=== PATIENT | female | born 1990 | race Caucasian/White ===

== ENCOUNTER 2025-04-09 00:20 | Emergency (ER) | payer MEDICARE, SELFPAY ==
[2025-04-09 00:20] VITALS: BP 115/79; PULSE 103; RESP 18; TEMP 37; O2SAT 99; BMI 22.4
--- NOTE | 2025-04-09 00:44 | EX.ED.DYSGE1 ---
HPI History of Present Illness Chief Complaint: Flank Pain Informant: patient Narrative Narrative: 34-year-old female states she is having pain in her left flank, less on her back more in her side in her left lower quadrant, that she has been having for the past 2 weeks consistent with a kidney stone that has been known and followed, and she is here for pain control. She is in pain management, taking oxycodone twice a day which she has been doing but the pain is [id number] and she is feeling very nauseated and does not want to waste her pain management prescription by vomiting it up. She denies any fevers or chills. No dysuria or hematuria. She has been on antibiotics for several weeks, currently on Bactrim, and states that she was admitted to [facility] where her oncologist and urologist are, she was there yesterday and then discharged today because she states her urologist who had admitted her, decided to drop her as a patient. The patient states this was because she missed a renal scan that she was unaware of. She states that the urologist was preparing to remove the kidney stone because of pain reasons. 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 She has known about those issues for years. [facility] Medical History Nephrostomy present Kidney failure Kidney stone Cervical cancer Home Medications ?Medication ?Instructions ?Recorded ?Last Taken ?Type escitalopram oxalate 20 mg tablet 20 mg PO DAILY 04/09/25 Unknown History (Lexapro) lorazepam 1 mg tablet (Ativan) 1 mg PO Q8H PRN anxiety 04/09/25 Unknown History ondansetron HCl 4 mg tablet 4 mg PO Q6H PRN nausea and vomiting 04/09/25 Unknown History oxycodone 5 mg tablet 10 mg PO Q6H PRN pain 04/09/25 Unknown History sulfamethoxazole 800 1 tab PO BID 04/09/25 Unknown History mg-trimethoprim 160 mg tablet (Bactrim DS) Allergy/AdvReac Type Severity Reaction Status Date / Time haloperidol (From Haldol) Allergy Angioedema Verified 04/09/25 00:21 Penicillins (PCN) Allergy Hives Verified 04/09/25 00:21 Social History Smoking Status: Current every day smoker tobacco type: cigarettes and e-cigarettes ROS ROS ED Constitutional Constitutional ED: Denies chills or fever(s) Eyes Eyes: Denies change in vision or diplopia ENT ENT ED: Denies rhinorrhea or sore throat Cardiovascular Cardiovascular: Denies chest pain or palpitations Respiratory/Chest Respiratory/Chest: Denies cough or dyspnea Gastrointestinal Gastrointestinal: Reports abdominal pain; Denies diarrhea, nausea or vomiting Genitourinary Genitourinary ED: Reports flank pain; Denies dysuria or hematuria Musculoskeletal Musculoskeletal: Denies back pain or neck pain Integumentary Denies abscess or rash Neurologic Neurologic: Denies headache(s), paresthesias or weakness Psychiatric Psychiatric: Denies anxiety or suicidal thoughts EXAM Physical Exam Const Vital Signs: 04/09/25 00:20 04/09/25 01:20 04/09/25 02:00 Temperature 98.6 F Temperature Source Oral Pulse Rate 103 H 89 69 Respiratory Rate 18 16 16 Blood Pressure 115/79 118/71 107/77 Blood Pressure Mean 91 86 87 Pulse Ox 99 98 99 Oxygen Delivery Method Room Air Room Air Positive well nourished and well developed Constitutional Narrative: Very well-appearing in no distress, ambulatory without limitation General Appearance ED: well developed and NAD HEENT Reports moist mucous membranes normocephalic and atraumatic Eyes PERRL and EOMs intact bilaterally Neck full ROM and supple Resp normal respiratory effort and clear to auscultation bilaterally Cardio regular rate, regular rhythm and no murmurs GI non-distended GI Narrative: Tender left lower quadrant no guarding or rebound. Auscultation: normoactive bowel sounds Palpation: soft Back/Spine no CVA tenderness Back/Spine Narrative: Left nephrostomy in place, no active discharge or signs of infection or tenderness. General Back: other FROM Extremity normal to inspection General Extremety ED: Negative for edema, pulses abnormal or tenderness General Extremity: Negative for edema or pulses abnormal Neuro oriented x3, CN's II-XII intact bilaterally and no sensory deficits noted Sensorium / Orientation: awake and alert Motor Exam: strength 5/5 throughout Psych mental status grossly normal Skin no rashes or lesions noted and no wounds MDM MDM MDM Narrative Medical decision making narrative: Labs and urinalysis are normal. No indication of infection. In the meantime she was given a dose of morphine and Zofran for her symptoms. She said it did not help and that her abdomen is hurting worse although she appears well and is not tachycardic with a heart rate of 69 and a blood pressure 107/77. Given the timing of all of this I certainly do not think she needs to be admitted for any acute reason. She is here at 1-3 a.m., and although I think reasonable to refer her to urology, I do not think she needs to see them emergently right now. She is in agreement and is gracious about more pain control and referral. Lab Data Attestation: I reviewed the patient's lab results. Labs: Laboratory Results - last 24 hr 04/09/25 04/09/25 00:38 01:02 WBC 8.7 RBC 3.81 L Hgb 12.3 Hct 36.4 L MCV 95.5 MCH 32.3 H MCHC 33.8 RDW Std Deviation 51.2 H RDW Coeff of [place] 14.6 Plt Count 297 MPV 9.4 Immature Gran % (Auto) 0.300 Neut % (Auto) 54.6 Lymph % (Auto) 32.0 [place] % (Auto) 8.9 Eos % (Auto) 3.2 Baso % (Auto) 1.0 Absolute Neuts (auto) 4.7 Absolute Lymphs (auto) 2.78 Nucleated RBC % 0 Sodium 140 Potassium 3.4 Chloride 106 Carbon Dioxide 19.8 L Anion Gap 14 BUN 9 Creatinine 0.96 Estim Creat Clear Calc 72.90 Est GFR (MDRD) Non-Af 79 BUN/Creatinine Ratio 9.0 L Glucose 120 H Calcium 9.1 Urine Color Straw Urine Clarity Clear Urine pH 6.0 Ur Specific [place] 1.010 Urine Protein Negative Urine Glucose (UA) Normal Urine Ketones Negative Urine Occult Blood Negative Urine Nitrite Negative Urine Bilirubin Negative Urine Urobilinogen Normal Ur Leukocyte Esterase Negative Urine RBC 0 SEEN Urine WBC 0-5 SEEN Ur Squamous Epith Cells 0-5 SEEN Urine Bacteria 0 SEEN Urine Mucus 0 SEEN Discharge Plan Triage Chief Complaint: Flank Pain ED Provider: Jatin Garcia Dx/Rx/DC Orders Clinical Impression: Acute left flank pain, Ureteral obstruction, left, Nephrostomy status Instructions: ED Kidney Stone with Pain Prescriptions: No Action oxycodone 5 mg tablet 10 mg PO Q6H PRN (Reason: pain) lorazepam [Ativan] 1 mg tablet 1 mg PO Q8H PRN (Reason: anxiety) escitalopram oxalate [Lexapro] 20 mg tablet 20 mg PO DAILY ondansetron HCl 4 mg tablet 4 mg PO Q6H PRN (Reason: nausea and vomiting) sulfamethoxazole-trimethoprim [Bactrim DS] 800-160 mg tablet 1 tab PO BID Primary Care Provider: [facility] Referrals: Yoseph Botello MD [Med Staff - Active Staff] - Print Language: Emirati Disposition Disposition: Home, Self Care
[2025-04-09] MEDS: Morphine 4 MG/ML Syringe IV (00:57)
[2025-04-09] MEDS: Ondansetron 4 MG/2 ML Vial IV (00:57)
[2025-04-09 01:20] VITALS: BP 118/71; PULSE 89; RESP 16; O2SAT 98
[2025-04-09 01:31] LABS: Absolute Lymphocyte Count 2.78 X10^3/uL (0.83-4.51); Absolute Neutrophil Count 4.7 X10^3/uL (2.0-7.7); Basophil# 0.09 X10^3/uL; Eosinophil# 0.28 X10^3/uL; Eosinophils% 3.2 % (0-5); Hematocrit 36.4 % (37-47); Hemoglobin 12.3 g/dL (12.0-15.0); Lymphocyte # 2.78 X10^3/ul (0.83-4.51); Mean Corp Hgb Conc 33.8 g/dL (32-36); Mean Corpuscular Hgb 32.3 pg (27.0-32.0); Mean Corpuscular Volume 95.5 fL (81-99); Mean Platelet Vol. 9.4 fl (6.2-12.0); Monocyte# 0.77 X10^3/uL; Monocyte% 8.9 % (0-10); NRBC Flagged by Analyzer 0 % (0-5); Neutrophil # 4.74 X10^3/uL (2.7-7.7); Neutrophil % 54.6 % (47-70); Platelet Count 297 K/mm3 (150-450); RBC Distribution Width CV 14.6 % (11.6-14.6); RBC Distribution Width SD 51.2 fl (35.1-43.9); Red Blood Count 3.81 M/mm3 (4.2-5.4); White Blood Count 8.7 K/mm3 (4.4-11.0)
--- OUTSIDE RECORDS SUMMARY | 2025-04-09 01:31 | XMS RPT_ITS | CCD ---
Author Organization [facility] ion Partnership [facility] Care Team Providers Care Mottler Operator Name Role Phone Flip Martin Unavailable Unavailable Shira Teran Unavailable Urology Consult Unavailable Unavailable Polo Plummer Unavailable FLIP MARTIN MD Primary Care Physician ([phone] FLIP MARTIN MD Primary Care Physician ([phone] PHYSICIAN, NONE Primary Care Physician Unavailab le OTHER, PROVIDER NOT SPECIFIED Primary Care Physi pedro Unavailable FLIP MARTIN MD Primary Care Unavailable MADELINE APARICIO Attending Unavailable MARIN COTE MD Consulting Unavailable FLIP MARTIN MD Primary Care Unavailable FLIP MARTIN MD Attending Unavailable OTHER, PROVIDER NOT SPECIFIED Primary Care Un available OLE PACE MD Attending Unavailable FLIP MARTIN MD Primary Care Unavailable LEONARDO NULL Attending UnavailRITA Almonte MD Consulting Unavailable PHYSICIAN, NONE Primary Care Unavailable BRITTNI VICENTE Attending UnavailDAVID Day MD Consulting Unavailable OTHER, PROVIDER NOT SPECIFIED Primary Care Un available OLE PACE MD Attending Unavailable OTHER, PROVIDER NOT SPECIFIED Primary Care Un available OLE PACE MD Attending Unavailable FLIP MARTIN MD Primary Care Unavailable OLE PACE MD Attending Unavailable PHYSICIAN, NONE Primary Care Unavailable OLE PACE MD Attending Unavailable FLIP MARTIN MD Primary Care Unavailable FLIP MARTIN MD Attending Unavailable FLIP MARTIN MD Primary Care Unavailable FLIP MARTIN MD Attending Unavailable FLIP MARTIN MD Primary Care Unavailable OLE PACE MD Attending Unavailable PHYSICIAN, NONE Primary Care Unavailable OLE PACE MD Attending Unavailable OTHER, PROVIDER NOT SPECIFIED Primary Care Un available YUNIEL DO, NAYELI Consulting UnavailOLE Mcknight MD Attending Unavailable FERMIN CHU, LACEY Consulting Brea jj MARTIN MD, FLIP Primary Care Unavailable VARUN LORA, FLIP Attending Unavailable PHYSICIAN, NONE Primary Care Unavailable RONY OMER, BRITTNI Attending Unavailalice MARTIN MD, FLIP Primary Care Unavailable MADELINE APARICIO Attending Unavailable PHYSICIAN, NONE Primary Care Unavailable OLE PACE MD Attending Unavailable ISABELLA LORA, Ph.D, VIRAL Choe Attending Unavailalice MASON MD, Ph.D, VIRAL Choe Consulting Unavailalice MARTIN MD, FLIP Primary Care Unavailable OLE MONK MD Consulting Unavailable PHYSICIAN, NONE Primary Care Unavailable RONY OMER, BRITTNI Attending Unavailalice ROSARIO MD, DALY Consulting Unavailable FLIP MARTIN MD Attending Unavailable FLIP MARTIN MD Admitting Unavailable FLIP MARTIN MD Primary Care Unavailable JOHANNA JEAN BAPTISTE MD Consulting Unavailable OLE PACE MD Consulting Unavailable SANTINO SAWYER MD Consulting Unavailable DAVID SMITH MD Consulting Unavailable OTHER, PROVIDER NOT SPECIFIED Primary Care Un available OLE PACE MD Attending Unavailable PHYSICIAN, NONE Primary Care Unavailable OLE PACE MD Attending Unavailable VIRAL MANUEL MD Attending Unavailable HILDA HADDAD MD Consulting Unavailable OTHER, PROVIDER NOT SPECIFIED Primary Care Un available HILDA HADDAD MD Consulting Unavailable PHYSICIAN, NONE Primary Care Unavailable OLE PACE MD Attending Unavailable OTHER, PROVIDER NOT SPECIFIED Primary Care Un available JULIAN ISABEL MD Attending Unavailable OTHER, PROVIDER NOT SPECIFIED Primary Care Un available JULIAN ISABEL MD Attending Unavailable OTHER, PROVIDER NOT SPECIFIED Primary Care Un available JULIAN ISABEL MD Attending Unavailable PHYSICIAN, NONE Primary Care Unavailable HARITHA CLAY DO Attending Unavailable FLIP MARTIN MD Primary Care Unavailable FLIP MARTIN MD Attending Unavailable OTHER, PROVIDER NOT SPECIFIED Primary Care Un available OLE PACE MD Attending Unavailable OLE PACE MD Primary Care Physician GONZALEZ CARTER DO Primary Care Unavailable GONZALEZ CARTER DO Attending Unavailable GONZALEZ CARTER DO Admitting Unavailable GONZALEZ CARTER DO Primary Care Unavailable GONZALEZ CARTER DO Attending Unavailable GONZALEZ CARTER DO Admitting Unavailable KORINA AGUILAR MD Primary Care Unavailable KORINA AGUILAR MD Attending Unavailable KORINA AGUILAR MD Admitting Unavailable DIDGONZALEZ ORTIZ DO Primary Care Unavailable DIDGONZALEZ ORTIZ DO Attending Unavailable DIDGONZALEZ ORTIZ DO Admitting Unavailable RADHA, GUCCI E Primary Care Unavailable RADHA, GUCCI Phillips Attending Unavailable RADHA, GUCCI Phillips Admitting Unavailable OMLEY, BEATRICE DO Primary Care Unavailable OMLEY, BEATRICE DO Attending Unavailable OMLEY, BEATRICE DO Admitting Unavailable RADHA, GUCCI E Primary Care Unavailable RADHAGUCCI Attending Unavailable RADHAGUCCI HUDSON Admitting Unavailable ALICIA RODRIGUEZ MD Primary Care Unavailable ALICIA RODRIGUEZ MD Attending Unavailable ALICIA RODRIGUEZ MD Admitting Unavailable DIDGONZALEZ ORTIZ DO Primary Care Unavailable GONZALEZ CARTER DO Attending Unavailable GONZALEZ CARTER DO Admitting Unavailable GONZALEZ CARTER DO Primary Care Unavailable GONZALEZ CARTER DO Attending Unavailable GONZALEZ CARTER DO Admitting Unavailable GONZALEZ CARTER DO Primary Care Unavailable GONZALEZ CARTER DO Attending Unavailable GONZALEZ CARTER DO Admitting Unavailable GONZALEZ CARTER DO Primary Care Unavailable GONZALEZ CARTER DO Attending Unavailable GONZALEZ CARTER DO Admitting Unavailable RADHA, GUCCI Phillips Primary Care Unavailable RADHAGUCCI Attending Unavailable RADHAGUCCI Admitting Unavailable WINTER, OBED C Primary Care Unavailable WINTER, OBED C Attending Unavailable WINTER, OBED C Admitting Unavailable FLIP MARTIN MD Consulting Unavailable FLIP MARTIN MD Primary Care Unavailable FLIP MARTIN MD Attending Unavailable FLIP MARTIN MD Admitting Unavailable PROVIDER, UNKNOWN Consulting Unavailable AL, NEMR BADIE Primary Care Unavailable AL, NEMR BADIE Attending Unavailable AL, NEMR BADIE Admitting Unavailable RADHA, GUCCI E Primary Care Unavailable RADHA, GUCCI E Attending Unavailable RADHA, GUCCI E Admitting Unavailable DIDGONZALEZ ORTIZ DO Primary Care Unavailable GONZALEZ CARTER DO Attending Unavailable GONZALEZ CARTER DO Admitting Unavailable FEDE CAMPBELL MD Primary Care Unavailable FEDE CAMPBELL MD Attending Unavailable FEDE CAMPBELL MD Admitting Unavailable CSERNYLUCA CHRISTO DO Primary Care Unavailable CSERNYIKCHRISTO DO Attending Unavailable CSERNYCHRISTO SEGOVIA DO Admitting Unavailable RADHA, GUCCI E Primary Care Unavailable RADHA, GUCCI E Attending Unavailable RADHA, GUCCI E Admitting Unavailable ALICIA RODRIGUEZ MD Primary Care Unavailable ALICIA RODRIGUEZ MD Attending Unavailable ALICIA RODRIGUEZ MD Admitting Unavailable JENNI LORA, DR JURADO Admitting Unavailab roxann PACE MD, OLE A Primary Care Unavailable HENRY GUDINO, DR SEGAL Attending Unavailable SANTINO SAWYER MD Consulting Unavailable GONZALEZ CARMONA MD Consulting Unavailable OLE PACE MD Consulting Unavailable GONZALEZ CARMONA MD Consulting Unavailable BHUPENDRA GALVEZ DO Admitting Unavailable SANJEEV LORA, OLE A Primary Care Unavailable FRED CARBAJAL MD Attending Unavailable SANJEEV LORA, OEL A Primary Care Unavailable OLE PACE MD Attending Unavailable SANJEEV LORA, OLE A Primary Care Unavailable OLE PACE MD Attending Unavailable SANJEEV LORA, OLE A Primary Care Unavailable DELMAR MICHAEL DO Attending Unavailable GUCCI ALEXANDRE Attending Unavailable SANJEEV LORA, OLE A Primary Care Unavailable OLE PACE MD A Primary Care Unavailable TADEO LEIJA PA-C Attending Unavailcydney PACE MD, OLE A Primary Care Unavailable NASRIN ISABEL MD Attending Unavailable NAYELI BRICE DO Consulting UnavailOLE Mcknight MD A Primary Care Unavailable NASRIN ISABEL MD Attending Unavailable GARTH GOSS MD Consulting Unavailable OLE MONK MD Consulting Unavailable OLE PACE MD A Primary Care Unavailable AVILA OMER, PINA Jenkins Attending Unavail able OLE PACE MD A Primary Care Unavailable NASRIN ISABEL MD Attending Unavailable CLOTILDE RANDHAWA DO Consulting Unavailable SANJEEV LORA, OLE A Primary Care Unavailable AVILA OMER, PINA Jenkins Attending Unavail able GONZALEZ CARMONA MD Attending Unavailable OLE PACE MD A Primary Care Unavailable OLE PACE MD A Primary Care Unavailable NASRIN ISABEL MD Attending Unavailable GONZALEZ CARMONA MD Attending Unavailable OLE PACE MD A Primary Care Unavailable OLE PACE MD Primary Care Unavailable CLOTILDE RANDHAWA DO Attending Unavailable GONZALEZ CARMONA MD Attending Unavailable OLE PACE MD A Primary Care Unavailable OLE PACE MD A Primary Care Unavailable OLE PACE MD Attending Unavailable OLE PACE MD A Primary Care Unavailable OLE PACE MD Attending Unavailable OLE PACE MD A Primary Care Unavailable OLE PACE MD Attending Unavailable SANJEEV LORA, OLE A Primary Care Unavailable NASRIN ISABEL MD Attending Unavailable OLE PACE MD Attending Unavailable SANJEEV LORA, OLE A Primary Care Unavailable SANJEEV LORA, OLE A Primary Care Unavailable MARKUS LORA, DR CORREA Attending Unavailable PHUONG LORA, VON Attending Unavailalice PACE MD, OLE Jenkins Primary Care Unavailable CLOTILDE RANDHAWA DO Consulting Unavailable KERA LORA, MARIN Consulting Unavailable SANJEEV LORA, OLE Jenkins Primary Care Unavailable AVILA [employer]ENN-HAZARDOUS WASTE REMOVER, PINA Jenkins Attending Unavail able Allergies Allergy Classification Reported Allergen(s) Allergy Type Date of Onset Reaction(s) Facility Haloperidol (1 source) Haloperidol; Translations: [haloperidol] Drug Allergy Tongue swelling (finding) [facility] Penicillins (antibiotic) (1 source) Penicillin; Translations: [penicillins] Drug Allergy Weal (disorder) [facility] (10 sources) Codeine; Translations: [codeine] Drug Allergy [facility] (1 source) oxyCODONE; Translations: [oxycodone] Drug Allergy Vomitting, Nausea [facility] (20 sources) Penicillin; Translations: [penicillins] Drug Allergy Weal (disorder) [facility] (20 sources) Egan - fruit Food allergy Tongue swelling (finding), Difficulty breathing (finding) [facility] (16 sources) Haloperidol; Translations: [haloperidol] Drug Allergy Tongue swelling (finding) [facility] (1 source) Haloperidol Drug Allergy [facility] (1 source) Penicillins Drug allergy (disorder) [facility] Medications Current Medications Medication Drug Class(es) Dates Sig (Normalized) Sig (Original) acetaminophen 500 mg oral tablet (20 sources) Start: 10-12-2024 Tylenol Extra Strength 500 mg oral tablet Dose : 1,000 mg = 2 tab(s), Oral, q4h, PRN as needed for pain Start Date: 10/12/24 Status: Ordered Repeat number: 1 Start: 01-06-2024 acetaminophen Dose : 650 mg =, PRN as needed for pain, 0 Refill(s) Start Date: 01/06/24 Status: Ordered Start: 01-06-2024 acetaminophen Dose : 650 mg =, 0 Refill(s) Start Date: 01/06/24 Status: Ordered Start: 10-08-2022 Tylenol 325 mg oral capsule Dose : 650 mg =, Oral, q4h, PRN Pain, scale 1-3, 0 Refill(s) Start Date: 10/08/22 Status: Ordered Start: 08-16-2022 End: 08-30-2022 Tylenol 325 mg oral tablet D ose : 650 mg = 2 tab(s), Oral, q4hr, PRN for pain, X 7 day(s), # 50 tab(s), 1 Refill(s), 08/30/22 13:02:00 EDT, Pharmacy: [id number], 167.6, cm, 08/08/22 16:51:00 EDT, Height Start Date: 08/16/22 Stop Date: 08/30/22 Status: Ordered Start: 01-11-2021 Tylenol 325 mg oral capsule Dose : 650 mg =, Oral, q4h, PRN Pain, scale 1-3, 0 Refill(s) Start Date: 01/11/21 Status: Ordered acetaminophen 325 mg / oxyCODONE hydrochloride 5 mg oral tablet (14 sources) Opioid Agonist Start: 01-21-2023 End: 02-20-2023 take 1 tablet by mouth every six hours acetaminophen-oxyCODONE 325 mg-5 mg oral tablet Dose = 1 tab(s), Oral, q6hr, X 30 day(s), # 120 tab(s), 0 Refill(s), Pharmacy: [id number], Cervical cancer, 167.6, cm, 01/01/23 16:31:00 EST, Height, 47.7, kg, 01/01/23 16:31:00 EST, Dosing Weight Start Date: 01/21/23 Stop Date: 02/20/23 Status: Ordered Start: 12-19-2022 End: 01-18-2023 take 1 tablet by mouth every six hours acetaminophen-oxyCODONE 325 mg-5 mg oral tablet Dose = 1 tab(s), Oral, q6hr, X 30 day(s), # 120 tab(s), 0 Refill(s), Pharmacy: [id number], Cervical cancer, 167.6, cm, 11/15/22 9:52:00 EST, Height, 50, kg, 11/15/22 9:52:00 EST, Dosing Weight Start Date: 12/19/22 Stop Date: 01/18/23 Status: Ordered Start: 10-21-2022 End: 11-20-2022 take 1 tablet by mouth every six hours acetaminophen-oxyCODONE 325 mg-5 mg oral tablet Dose = 1 tab(s), Oral, q6hr, X 30 day(s), # 120 tab(s), 0 Refill(s), Pharmacy: [facility], Cervical cancer, 167.6, cm, 09/30/22 17:45:00 EST, Height, 50.4, kg, 09/30/22 17:45:00 EST, Dosing Weight Start Date: 10/21/22 Stop Date: 11/20/22 Status: Ordered Start: 09-18-2022 End: 10-18-2022 take 1 tablet by mouth every six hours acetaminophen-oxyCODONE 325 mg-5 mg oral tablet Dose = 1 tab(s), Oral, q6hr, X 30 day(s), # 120 tab(s), 0 Refill(s), Pharmacy: [facility], Cervical cancer, 167.6, cm, 08/08/22 16:51:00 EDT, Height, 52.5, kg, 08/08/22 16:51:00 EDT, Dosing Weight Start Date: 09/18/22 Stop Date: 10/18/22 Status: Ordered Start: 07-22-2022 End: 08-21-2022 take 1 tablet by mouth every six hours acetaminophen-oxyCODONE 325 mg-5 mg oral tablet Dose = 1 tab(s), Oral, q6hr, X 30 day(s), # 120 tab(s), 0 Refill(s), Pharmacy: [facility], Cervical cancer, 167.6, cm, 07/04/22 10:37:00 EDT, Height, 45.4 Start Date: 07/22/22 Stop Date: 08/21/22 Status: Ordered Start: 06-19-2022 End: 07-19-2022 take 1 tablet by mouth every six hours as needed for pain acetaminophen-oxyCODONE 325 mg-5 mg oral tablet Dose = 1 tab(s), Oral, q6hr, PRN for pain, X 30 day(s), # 120 tab(s), 0 Refill(s), Pharmacy: [id number], Cervical ca Cancer related pain, 167.6, cm, 05/23/22 11:20:00 EDT, Height, 52.3, kg, 05/23/22 11:20:00 EDT, Dosing Weight Start Date: 06/19/22 Stop Date: 07/19/22 Status: Ordered Start: 03-25-2022 End: 04-24-2022 take 1 tablet by mouth every six hours as needed for pain acetaminophen-oxyCODONE 325 mg-5 mg oral tablet Dose = 1 tab(s), Oral, q6hr, PRN for pain, X 30 day(s), # 120 tab(s), 0 Refill(s), Pharmacy: [id number], Cervical ca Cancer related pain, 167.6, cm, 02/21/22 15:19:00 EDT, Height, 46, kg, 02/21/22 15:19:00 EDT, Dosing Weight Start Date: 03/25/22 Stop Date: 04/24/22 Status: Ordered Start: 02-19-2022 End: 03-21-2022 take 1 tablet by mouth every six hours as needed for pain acetaminophen-oxyCODONE 325 mg-5 mg oral tablet Dose = 1 tab(s), Oral, q6hr, PRN for pain, X 30 day(s), # 120 tab(s), 0 Refill(s), Pharmacy: [facility], Cervical ca, 167.6, cm, 01/28/22 14:47:00 EDT, Height, 45.4, kg, 01/28/22 14:47:00 EDT, Dosing Weight Start Date: 02/19/22 Stop Date: 03/21/22 Status: Ordered Start: 12-21-2021 End: 01-20-2022 take 1 tablet by mouth every six hours as needed for pain acetaminophen-oxyCODONE 325 mg-5 mg oral tablet Dose = 1 tab(s), Oral, q6hr, PRN for pain, X 30 day(s), # 120 tab(s), 0 Refill(s), Pharmacy: [facility], Cervical ca, 167.6, cm, 12/21/21 10:38:00 EST, Height, 47.7, kg, 12/21/21 10:38:00 EST, Dosing Weight Start Date: 12/21/21 Stop Date: 01/20/22 Status: Ordered Start: 08-15-2021 End: 09-14-2021 take 1 tablet by mouth every four hours as needed for pain acetaminophen-oxyCODONE 325 mg-5 mg oral tablet Dose = 1 tab(s), Oral, q4h, PRN for pain, X 30 day(s), # 180 tab(s), 0 Refill(s), Pharmacy: [facility], Cervical cancer, 167.6, cm, 05/22/21 17:26:00 EDT, Height, 45.4, kg, 05/22/21 17:26:00 EDT, Dosing Weight Start Date: 08/15/21 Stop Date: 09/14/21 Status: Ordered take 9 tablets by mo uth every four to six hours as needed Percocet 5/325 oral tablet ; orally ever y 4-6 hours, As Needed Quantity: 0 Refills: 0 Ordered: 12-Jul-2021 Rod Cruz Status: Discontinued Generic Substitution Allowed albuterol MDI (90 mcg/inh) CFC free inhalation aerosol (7 sources) Start: 08-06-2024 take 2 puff(s) by inhalation every six hours as needed for wheezing albuterol MDI (90 mcg/inh) CFC free inhalation aerosol 2 puff(s), Inhalation, q6h, PRN as needed for wheezing, # 8.5 gram(s), 0 Refill(s) Start Date: 08/06/24 Status: Ordered Quantity: 8.5 Unit: g Repeat number: 1 Start: 08-06-2024 take 2 puff(s) by in halation every six hours as needed for wheezing albuterol MDI (90 mcg/inh) CFC free inhalation aerosol 2 puff(s), Inhalation, q6h, PRN as needed for wheezing, # 8.5 gram(s), 0 Refill(s) Start Date: 08/06/24 Status: Ordered busPIRone hydrochloride 15 mg oral tablet (1 source) Start: 05-26-2021 busPIRone 15 mg oral tablet Dose : 15 mg = 1 tab(s), Oral, BID, # 60 tab(s), 1 Refill(s), Pharmacy: [facility], 167.6, cm, 05/22/21 17:26:00 EDT, Height, kg, 05/22/21 17:26:00 EDT, Dosing Weight Start Date: 05/26/21 Status: Ordered Calcium Plus Vitamin D3 600 mg-12.5 mcg (500 intl units) oral capsule (15 sources) Start: 05-15-2023 take 1 capsule by mouth once daily at mealtime Calcium Plus Vitamin D3 600 mg-12.5 mcg (500 intl units) oral capsule Dose = 2 cap(s), Oral, qDay, with food, # 120 EA, 0 Refill(s), Pharmacy: [facility], 167.6, cm, 05/15/23 15:33:00 EDT, Height Start Date: 05/15/23 Status: Ordered ciprofloxacin 500 mg oral tablet (3 sources) Quinolone Antimicrobial Start: 05-07-2023 End: 05-17-2023 ciprofloxacin 500 mg oral tablet Dose : 500 mg = 1 tab(s), Oral, q12h, X 10 day(s), # 20 tab(s), 0 Refill(s), 05/17/23 6:33:00 EDT, Pharmacy: [facility], 167, cm, 04/28/23 13:10:00 EDT, Height, 63.9 Start Date: 05/07/23 Stop Date: 05/17/23 Status: Ordered Start: 01-06-2023 End: 01-10-2023 ciprofloxacin 500 mg oral ta blet Dose : 500 mg = 1 tab(s), Oral, q12h, X 4 day(s), # 9 tab(s), 0 Refill(s), 01/10/23 14:45:00 EST, Pharmacy: [facility], 167.6, cm, 01/01/23 16:31:00 EST, Height, 47.7 Start Date: 01/06/23 Stop Date: 01/10/23 Status: Ordered cyclobenzaprine hydrochloride 5 mg oral tablet (1 source) Muscle Relaxant Start: 08-16-2022 End: 08-26-2022 cyclobenzaprine 5 mg oral tablet Dose : 5 mg = 1 tab(s), Oral, TID, PRN Muscle spasm, X 10 day(s), # 30 tab(s), 0 Refill(s), 08/26/22 13:05:00 EDT, Pharmacy: [facility], 167.6, cm, 08/08/22 16:51:00 EDT, Height Start Date: 08/16/22 Stop Date: 08/26/22 Status: Ordered DAPTOmycin 500 mg injection (2 sources) Lipopeptide Antibacterial Start: 05-07-2023 End: 05-17-2023 inject 1 dose intravenously every twenty-four hours DAPTOmycin 500 mg intravenous injection Dose : 383.4 mg =, Intravenous, q24h, X 10 day(s), # 10 EA, 0 Refill(s), 05/17/23 6:32:00 EDT, Pharmacy: [facility], 167, cm, 04/28/23 13:10:00 EDT, Height, 63.9 Start Date: 05/07/23 Stop Date: 05/17/23 Status: Ordered docusate sodium 100 mg oral capsule (4 sources) Start: 10-08-2022 Colace 100 mg oral capsule Dose : 100 mg = 1 cap(s), Oral, BID, PRN as needed for constipation, # 60 cap(s), 2 Refill(s), Pharmacy: [facility], 167.6, cm, 09/30/22 17:45:00 EST, Height, kg, 09/30/22 17:45:00 EST, Dosing Weight Start Date: 10/08/22 Status: Ordered dronabinol 2.5 mg oral capsule (1 source) Cannabinoid Start: 10-08-2022 End: 10-29-2022 Marinol 2.5 mg oral capsule Dose : 2.5 mg = 1 cap(s), Oral, BID, X 21 day(s), # 42 cap(s), 0 Refill(s), 10/29/22 14:33:00 EST, Pharmacy: [facility], Cervical cancer Decreased appetite, 167.6, cm, 09/30/22 17:45:00 EST, Height, 50.4 Start Date: 10/08/22 Stop Date: 10/29/22 Status: Ordered escitalopram 20 mg oral tablet (15 sources) Serotonin Reuptake Inhibitor Start: 2024 Lexapro 20 mg oral tablet Dose : 20 mg = 1 tab(s), Oral, qDay, # 30 tab(s), 5 Refill(s), Pharmacy: [email or web address] 167.6, cm, 12/22/24 8:11:00 EST, Height, kg, 12/22/24 8:11:00 EST, Dosing Weight Start Date: 12/28/24 Status: Ordered Quantity: 30.0 Unit: tab(s) Repeat number: 6 Start: 06-17-2024 Lexapro 20 mg oral tablet Dose : 20 mg = 1 tab(s), Oral, qDay, # 30 tab(s), 5 Refill(s), Pharmacy: [facility] 167.6, cm, 06/09/24 6:47:00 EDT, Height, kg, 06/09/24 6:47:00 EDT, Dosing Weight Start Date: 06/17/24 Status: Ordered Start: 03-16-2024 Lexapro 20 mg oral tablet Dose : 20 mg = 1 tab(s), Oral, qDay, # 30 tab(s), 2 Refill(s), Pharmacy: [email or web address] 167.6, cm, 03/04/24 9:28:00 EDT, Height, kg, 03/04/24 9:28:00 EDT, Dosing Weight Start Date: 03/16/24 Status: Ordered Start: 01-06-2024 Lexapro 10 mg oral tablet Dose : 10 mg = 1 tab(s), Oral, qDay, # 30 tab(s), 1 Refill(s), Pharmacy: [facility], 167.6, cm, 01/06/24 10:18:00 EST, Height, kg, 01/06/24 10:18:00 EST, Dosing Weight Start Date: 01/06/24 Status: Ordered Start: 12-08-2023 Lexapro 10 mg oral tablet Dose : 10 mg = 1 tab(s), Oral, qDay, # 30 tab(s), 1 Refill(s), Pharmacy: [facility], 167.6, cm, 12/08/23 14:57:00 EST, Height, kg, 12/08/23 14:57:00 EST, Dosing Weight Start Date: 12/08/23 Status: Ordered Start: 09-12-2023 escitalopram 1 0 mg oral tablet Dose : 10 mg = 1 tab(s), Oral, qDay, # 30 tab(s), 1 Refill(s), Pharmacy: [facility], [facility] 167.6, cm, 09/03/23 13:59:00 EDT, Height, kg, 09/03/23 13:59:00 EDT, Dosing Weight Start Date: 09/12/23 Status: Ordered estrogens, conjugated ([facility]) 0.625 mg / medroxyPROGESTERone acetate 2.5 mg oral tablet (2 sources) Progestin, Estrogen Start: 02-21-2022 take 1 tablet by mouth once daily Prempro 0.625 mg-2.5 mg oral tablet Dose = 1 tab(s), Oral, qDay, # 90 tab(s), 2 Refill(s), Pharmacy: [facility], 167.6, cm, 02/21/22 15:19:00 EDT, Height Start Date: 02/21/22 Status: Ordered HYDROmorphone hydrochloride 2 mg oral tablet (2 sources) Opioid Agonist Start: 08-16-2022 End: 08-21-2022 Dilaudid 2 mg oral tablet Dose : 2 mg = 1 tab(s), Oral, q4h, PRN as needed for pain, X 5 day(s), # 28 tab(s), 0 Refill(s), 08/21/22 13:06:00 EDT, Pharmacy: [facility], Cancer related pain History of radiation therapy, 167.6, cm, 08/08/22 16:51:00 EDT, Height, 52.5 Start Date: 08/16/22 Stop Date: 08/21/22 Status: Ordered Start: 04-19-2022 End: 04-26-2022 Dilaudid 2 mg oral tablet Do se : 1 mg = 0.5 tab(s), Oral, q4h, PRN as needed for pain, # 28 tab(s), 0 Refill(s), Pharmacy: [facility], Cervical cancer Cancer related pain, 167.6, cm, 04/14/22 22:09:00 EDT, Height, 45.4 Start Date: 04/19/22 Stop Date: 04/26/22 Status: Ordered ibuprofen 200 mg oral tablet (15 sources) Nonsteroidal Anti-inflammatory Drug Start: 12-03-2023 Motrin IB 200 mg oral tablet Dose : 400 mg = 2 tab(s), Oral, q4h, PRN as needed for pain, 0 Refill(s) Start Date: 12/03/23 Status: Ordered Repeat number: 1 lidocaine 0.05 mg/mg medicated patch (2 sources) Antiarrhythmic, Amide Local Anesthetic Start: 08-16-2022 lidocaine 5% topical patch Apply 1 patch(es), Topical, qDay, remove patches after 12 hours, # 30 patch(es), 0 Refill(s), Pharmacy: [facility], 167.6, cm, 08/08/22 16:51:00 EDT, Height, 52.5 Start Date: 08/16/22 Status: Ordered LORazepam 1 mg oral tablet (20 sources) Benzodiazepine Start: 2024 Ativan 1 mg or al tablet Dose : 1 mg = 1 tab(s), Oral, TID, PRN as needed for anxiety, # 90 tab(s), 2 Refill(s), Pharmacy: [facility] Palliative care patient THO (generalized anxiety disorder), 167.6, cm, 12/22/24 8:11:00 EST, Height, 53.6, kg, 12/22/24 8:11:00 EST, Dosing Weight Start Date: 12/28/24 Status: Ordered Quantity: 90.0 Unit: tab(s) Repeat number: 3 Indications: Encounter for palliative care; Generalized anxiety disorder; Start: 07-15-2024 End: 09-13-2024 Ativan 1 mg oral tablet Dose : 1 mg = 1 tab(s), Oral, BID, PRN as needed for anxiety, # 60 tab(s), 1 Refill(s), Pharmacy: [facility] Palliative care patient THO (generalized anxiety disorder), 167.6, cm, 06/21/24 11:41:00 EDT, Height, 62.2, kg, 06/21/24 11:41:00 EDT, Dosing Weight Start Date: 07/15/24 Stop Date: 09/13/24 Status: Ordered Start: 05-14-2024 End: 07-13-2024 Ativan 1 mg oral tablet Dose : 1 mg = 1 tab(s), Oral, BID, PRN as needed for anxiety, # 60 tab(s), 1 Refill(s), Pharmacy: [facility] Palliative care patient THO (generalized anxiety disorder), 167.6, cm, 04/28/24 11:26:00 EDT, Height, 62.5, kg, 04/28/24 11:26:00 EDT, Dosing Weight Start Date: 05/14/24 Stop Date: 07/13/24 Status: Ordered Start: 01-06-2024 End: 04-18-2024 Ativan 1 mg oral tablet Dose : 1 mg = 1 tab(s), Oral, BID, PRN as needed for anxiety, # 60 tab(s), 0 Refill(s), Pharmacy: [id number], Palliative care patient THO (generalized anxiety disorder), 167.6, cm, 03/04/24 9:28:00 EDT, Height, 60, kg, 03/04/24 9:28:00 EDT, Dosing Weight Start Date: 03/19/24 Stop Date: 04/18/24 Status: Ordered Start: 11-19-2023 LORazepam 1 mg oral tablet Dose : 1 mg = 1 tab(s), Oral, BID, # 60 tab(s), 0 Refill(s), Pharmacy: [facility] Cancer related pain History of cervical cancer, 167.6, cm, 11/19/23 9:33:00 EST, Height, 61.3, kg, 11/19/23 9:33:00 EST, Dosing Weight Start Date: 11/19/23 Status: Ordered Start: 10-20-2023 LORazepam 1 mg oral tablet Dose : 1 mg = 1 tab(s), Oral, BID, # 60 tab(s), 0 Refill(s), Pharmacy: [facility] Cancer related pain History of cervical cancer, 167.6, cm, 09/03/23 13:59:00 EDT, Height, 63.6, kg, 09/03/23 13:59:00 EDT, Dosing Weight Start Date: 10/20/23 Status: Ordered Start: 08-21-2023 LORazepam 1 mg oral tablet Dose : 1 mg = 1 tab(s), Oral, BID, # 60 tab(s), 1 Refill(s), [facility] Cancer related pain History of cervical cancer, 167.6, cm, 08/21/23 15:13:00 EDT, Height, 64.2, kg, 08/21/23 15:13:00 EDT, Dosing Weight Start Date: 08/21/23 Status: Ordered Start: 07-30-2023 take 1 tablet by saloni th every eight hours LORazepam 1 mg oral tablet TAKE ONE TABLET BY MOUTH EVERY 8 HOURS Start Date: 07/30/23 Status: Ordered Start: 04-28-2023 End: 07-25-2023 Ativan 1 mg oral tablet Dose : 1 mg = 1 tab(s), Oral, q8h, X 9 day(s), # 27 tab(s), 0 Refill(s), 07/25/23 1:35:00 PM EDT, [facility] Anxiety Cervical ca, 167.6, cm, 07/09/23 7:02:00 EDT, Height, 62.8, kg, 07/09/23 7:02:00 EDT, Dosing Weight Start Date: 07/16/23 Stop Date: 07/25/23 Status: Ordered Start: 09-24-2021 End: 03-14-2023 Ativan 1 mg oral tablet Dose : 1 mg = 1 tab(s), Oral, TID, PRN PRN as needed for anxiety, X 30 day(s), # 90 tab(s), 0 Refill(s), 03/14/23 9:57:00 EDT, Pharmacy: [id number], Cervical cancer Anxiety, 167.6, cm, 01/01/23 16:31:00 EST, Height, 47.7, kg, 01/01/23 16:... Start Date: 02/12/23 Stop Date: 03/14/23 Status: Ordered Start: 06-22-2021 End: 09-20-2021 Ativan 1 mg oral tablet Dose : 1 mg = 1 tab(s), Oral, TID, X 30 day(s), # 90 tab(s), 2 Refill(s), 09/20/21 15:11:00 EST, Pharmacy: [id number], Cervical cancer, 167.6, cm, 05/22/21 17:26:00 EDT, Height, 45.4, kg, 05/22/21 17:26:00 EDT, Dosing Weight Start Date: 06/22/21 Stop Date: 09/20/21 Status: Ordered megestrol 40 mg/mL oral suspension (1 source) Start: 05-17-2021 take 1 dose by mouth once daily megestrol 40 mg/mL oral suspension Dose : 800 mg = 20 mL, Oral, Daily, # 600 mL, 2 Refill(s), Pharmacy: [facility], 167.6, cm, 05/17/21 14:03:00 EDT, Height, kg, 05/17/21 14:03:00 EDT, Dosing Weight Start Date: 05/17/21 Status: Ordered metoclopramide 5 mg oral tablet (3 sources) Dopamine-2 Receptor Antagonist Start: 01-06-2024 metoclopramide 5 mg oral tablet 0 Refill(s) Start Date: 01/06/24 Status: Ordered Start: 11-19-2023 End: 12-19-2023 metoclopramide 5 mg oral tab let Dose : 5 mg = 1 tab(s), Oral, achs, PRN nausea, X 15 day(s), # 60 tab(s), 1 Refill(s), 12/19/23 10:06:00 AM EST, Pharmacy: [facility] 167.6, cm, 11/19/23 9:33:00 EST, Height, kg, 11/19/23 9:33:00 EST, Dosing Weight Start Date: 11/19/23 Stop Date: 12/19/23 Status: Ordered mirtazapine 15 mg oral table t (10 sources) Start: 07-04-2023 mirtazapine 15 mg oral tablet Dose : 15 mg = 1 tab(s), Oral, qDay, # 30 tab(s), 0 Refill(s), [facility] 167.6, cm, 06/24/23 13:14:00 EDT, Height, kg, 06/24/23 13:14:00 EDT, Dosing Weight Start Date: 07/04/23 Status: Ordered Start: 06-03-2023 mirtazapine 15 mg oral tablet Dose : 15 mg = 1 tab(s), Oral, qDay, # 30 tab(s), 0 Refill(s), Pharmacy: [facility], 167.6, cm, 05/15/23 15:33:00 EDT, Height, kg, 05/15/23 15:33:00 EDT, Dosing Weight Start Date: 06/03/23 Status: Ordered Start: 04-28-2023 mirtazapine 15 mg oral tablet Dose : 15 mg = 1 tab(s), Oral, qDay Start Date: 04/28/23 Status: Ordered Start: 01-06-2023 mirtazapine 15 mg oral tablet Dose : 15 mg = 1 tab(s), Oral, qDay, # 30 tab(s), 3 Refill(s), Pharmacy: [facility], 167.6, cm, 01/01/23 16:31:00 EST, Height Start Date: 01/06/23 Status: Ordered morphine sulfate 30 mg extended release oral tablet (6 sources) Opioid Agonist Start: 06-16-2023 End: 07-16-2023 take 1 tablet by mouth every twelve hours, then take 1 tablet by mouth every twelve hours morphine 30 mg/8 to 12 hr oral tablet, extended release Dose : 30 mg = 1 tab(s), Oral, q12h, # 60 tab(s), 0 Refill(s), [facility] Cervical cancer, 167.6, cm, 05/15/23 15:33:00 EDT, Height, 65.9, kg, 05/15/23 15:33:00 EDT, Dosing Weight Start Date: 06/16/23 Stop Date: 07/16/23 Status: Ordered Start: 05-07-2023 End: 05-21-2023 take 1 tablet by mouth every twelve hours, then take 1 tablet by mouth every twelve hours morphine 30 mg/8 to 12 hr oral tablet, extended release Dose : 30 mg = 1 tab(s), Oral, q12h, # 28 tab(s), 0 Refill(s), Pharmacy: [facility], Cervical cancer, 167, cm, 04/28/23 13:10:00 EDT, Height, 63.9 Start Date: 05/07/23 Stop Date: 05/21/23 Status: Ordered Start: 03-04-2023 take 1 tablet by saloni th every hour, then take 1 tablet by mouth every twelve hours MS Contin 30 mg/8-12 hrs oral tablet, extended release Dose : 30 mg = 1 tab(s), Oral, q12h, # 60 tab(s), 0 Refill(s), Pharmacy: [facility], Cervical cancer Cancer related pain, 167.6, cm, 02/23/23 21:09:00 EDT, Height, 55.7 Start Date: 03/04/23 Status: Ordered Start: 10-08-2022 End: 10-29-2022 take 1 tablet by mouth every hour, then take 1 tablet by mouth every twelve hours MS Contin 30 mg/8-12 hrs oral tablet, extended release Dose : 30 mg = 1 tab(s), Oral, q12h, # 42 tab(s), 0 Refill(s), Pharmacy: [facility], Cervical cancer, 167.6, cm, 09/30/22 17:45:00 EST, Height, 50.4 Start Date: 10/08/22 Stop Date: 10/29/22 Status: Ordered naproxen 250 mg oral tablet (4 sources) Nonsteroidal Anti-inflammatory Drug Start: 08-16-2022 naproxen 250 mg oral tablet Dose : 250 mg = 1 tab(s), Oral, BID, # 60 tab(s), 0 Refill(s), Pharmacy: [facility], 167.6, cm, 08/08/22 16:51:00 EDT, Height Start Date: 08/16/22 Status: Ordered nitrofurantoin, macrocrystals 25 mg / nitrofurantoin, monohydrate 75 mg oral capsule (1 source) Nitrofuran Antibacterial Start: 08-16-2022 End: 08-19-2022 Macrobid 100 mg oral capsule Dose : 100 mg = 1 cap(s), Oral, BID, Take with food, X 3 day(s), # 6 cap(s), 0 Refill(s), 08/19/22 13:08:00 EDT, Pharmacy: [facility], 167.6, cm, 08/08/22 16:51:00 EDT, Height, 52.5 Start Date: 08/16/22 Stop Date: 08/19/22 Status: Ordered Normal saline (14 sources) Start: 11-21-2022 Normal Saline Flush 0.9% injectable solution Dose : 0.09 gram(s) = 10 mL, IR Drain, Daily, # 300 mL, 12 Refill(s), Pharmacy: [facility], 167.6, cm, 11/15/22 9:52:00 EST, Height, kg, 11/15/22 9:52:00 EST, Dosing Weight Start Date: 11/21/22 Status: Ordered Start: 10-09-2022 Normal Saline Flush 0.9% injectable solution Dose : 0.09 gram(s) = 10 mL, IR Drain, Daily, # 300 mL, 12 Refill(s), [facility], 167.6, cm, 09/30/22 17:45:00 EST, Height, kg, 09/30/22 17:45:00 EST, Dosing Weight Start Date: 10/09/22 Status: Ordered Start: 10-08-2022 Normal Saline Flush 0.9% injectable solution Dose : 0.09 gram(s) = 10 mL, IR Drain, Daily, # 300 mL, 12 Refill(s), Pharmacy: Pharmacy, 167.6, cm, 09/30/22 17:45:00 EST, Height, kg, 09/30/22 17:45:00 EST, Dosing Weight Start Date: 10/08/22 Status: Ordered Start: 04-12-2021 Normal Saline Flush 0.9% injectable solution Dose : 0.09 gram(s) = 10 mL, IR Drain, Daily, # 300 mL, 12 Refill(s), Pharmacy: [facility], 167.6, cm, 04/12/21 10:36:00 EDT, Height, kg, 04/12/21 10:36:00 EDT, Dosing Weight Start Date: 04/12/21 Status: Ordered OLANZapine 5 mg oral tablet (3 sources) Atypical Antipsychotic Start: 06-21-2022 OLANZap ine 5 mg oral tablet Dose : 5 mg = 1 tab(s), Oral, qHS, # 90 tab(s), 3 Refill(s), Pharmacy: [facility], 167.6, cm, 05/23/22 11:20:00 EDT, Height, kg, 05/23/22 11:20:00 EDT, Dosing Weight Start Date: 06/21/22 Status: Ordered Start: 04-19-2022 OLANZapine 5 m g oral tablet Dose : 5 mg = 1 tab(s), Oral, qHS, # 30 tab(s), 1 Refill(s), Pharmacy: [facility], 167.6, cm, 04/14/22 22:09:00 EDT, Height Start Date: 04/19/22 Status: Ordered ondansetron 4 mg oral tablet (20 sources) 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 Start: 12-10-2024 ondansetron 4 mg ora l tablet Dose : 4 mg = 1 tab(s), Oral, BID, TAKE ONE TABLET BY MOUTH EVERY 8 HOURS NEEDED FOR NAUSEA AND VOMITING, # 60 tab(s), 2 Refill(s), Pharmacy: [facility] 167.6, cm, 02/16/25 7:20:00 EDT, Height, kg, 02/16/25 7:20:00 EDT, Dosing Weight Start Date: 02/17/25 Status: Ordered Quantity: 60.0 Unit: tab(s) Repeat number: 3 Start: 05-24-2024 ondansetron 4 mg oral tablet Dose : 4 mg = 1 tab(s), Oral, BID, TAKE ONE TABLET BY MOUTH EVERY 8 HOURS NEEDED FOR NAUSEA AND VOMITING, # 60 tab(s), 2 Refill(s), Pharmacy: [facility] 167.6, cm, 05/24/24 11:29:00 EDT, Height, kg, 05/24/24 11:29:00 EDT, Dosing Weight Start Date: 05/24/24 Status: Ordered Start: 03-16-2024 End: 04-30-2024 Zofran 4 mg oral tablet Dose : 4 mg = 1 tab(s), Oral, q8h, PRN Nausea/Vomiting, X 15 day(s), # 45 tab(s), 2 Refill(s), 04/30/24 4:58:00 PM EDT, Pharmacy: [facility] 167.6, cm, 03/04/24 9:28:00 EDT, Height, kg, 03/04/24 9:28:00 EDT, Dosing Weight Start Date: 03/16/24 Stop Date: 04/30/24 Status: Ordered Start: 03-03-2024 Zofran 4 mg or al tablet Dose : 4 mg = 1 tab(s), Oral, q8h, PRN Nausea/Vomiting, # 15 tab(s), 0 Refill(s) Start Date: 03/03/24 Status: Ordered Start: 11-24-2023 End: 02-07-2024 ondansetron 4 mg oral tablet Dose : 4 mg = 1 tab(s), Oral, q6h, PRN Nausea/Vomiting, X 15 day(s), # 60 tab(s), 4 Refill(s), 02/07/24 9:38:00 AM EDT, Pharmacy: [facility] 167.6, cm, 11/19/23 9:33:00 EST, Height, kg, 11/19/23 9:33:00 EST, Dosing Weight Start Date: 11/24/23 Stop Date: 02/07/24 Status: Ordered Start: 04-28-2023 End: 10-30-2023 ondansetron 4 mg oral tablet Dose : 4 mg = 1 tab(s), Oral, q6h, PRN Nausea/Vomiting, # 60 tab(s), 2 Refill(s), Pharmacy: [facility] 167.6, cm, 09/03/23 13:59:00 EDT, Height, kg, 09/03/23 13:59:00 EDT, Dosing Weight Start Date: 09/15/23 Stop Date: 10/30/23 Status: Ordered Start: 01-23-2023 End: 02-22-2023 ondansetron 4 mg oral tablet Dose : 4 mg = 1 tab(s), Oral, q6h, PRN Nausea/Vomiting, # 120 tab(s), 0 Refill(s), Pharmacy: [facility], 167.6, cm, 01/01/23 16:31:00 EST, Height Start Date: 01/23/23 Stop Date: 02/22/23 Status: Ordered Start: 10-08-2022 End: 12-07-2022 Zofran 4 mg oral tablet Dose : 4 mg = 1 tab(s), Oral, q6h, PRN Nausea/Vomiting, # 60 tab(s), 1 Refill(s), Pharmacy: [facility], Cervical cancer, 167.6, cm, 09/30/22 17:45:00 EST, Height, kg, 09/30/22 17:45:00 EST, Dosing Weight Start Date: 11/06/22 Status: Ordered Start: 07-19-2022 End: 09-17-2022 Zofran 4 mg oral tablet Dose : 4 mg = 1 tab(s), Oral, q6h, PRN Nausea/Vomiting, Take 20-30 minutes prior to taking pain medication, # 120 tab(s), 1 Refill(s), Pharmacy: [facility], 167.6, cm, 07/04/22 10:37:00 EDT, Height, kg, 07/04/22 10:37:00 EDT, Dosing Weight Start Date: 07/19/22 Stop Date: 09/17/22 Status: Ordered Start: 03-14-2022 End: 06-18-2022 Zofran 4 mg oral tablet Dose : 4 mg = 1 tab(s), Oral, q6h, PRN Nausea/Vomiting, Take 20-30 minutes prior to taking pain medication, # 120 tab(s), 1 Refill(s), Pharmacy: [facility], 167.6, cm, 04/14/22 22:09:00 EDT, Height, kg, 04/14/22 22:09:00 EDT, Dosing Weight Start Date: 04/19/22 Stop Date: 06/18/22 Status: Ordered Start: 11-05-2021 End: 06-17-2022 take 1 dose by mouth every six hours ondansetron 4 mg oral disintegrating strip Dose : 4 mg = 1 film, Oral, q6h, X 30 day(s), # 30 film, 4 Refill(s), 06/17/22 12:00:00 EDT, Pharmacy: [facility], 167.6, cm, 01/16/22 19:29:00 EDT, Height, kg, 01/16/22 19:29:00 EDT, Dosing Weight Start Date: 01/18/22 Stop Date: 06/17/22 Status: Ordered Start: 08-07-2021 End: 10-06-2021 take 1 dose by mouth every six hours ondansetron 4 mg oral disintegrating strip Dose : 4 mg = 1 film, Oral, q6h, X 30 day(s), # 30 film, 1 Refill(s), 10/06/21 11:19:00 EST, Pharmacy: [facility], 167.6, cm, 05/22/21 17:26:00 EDT, Height, kg, 05/22/21 17:26:00 EDT, Dosing Weight Start Date: 08/07/21 Stop Date: 10/06/21 Status: Ordered take 9 tablets by [facility] every four hours as needed Zofran 4 mg oral tablet ; orally every 4 hours, As Needed Quantity: 0 Refills: 0 Ordered: 12-Jul-2021 Rod Cruz Status: Discontinued Generic Substitution Allowed oxyCODONE hydrochloride 5 mg oral tablet (20 sources) Opioid Agonist Start: 03-10-2025 oxyCODONE 5 mg oral tablet ( IMMEDIATE release ) Dose : 10 mg = 2 tab(s), Oral, q6h, PRN for pain, may dispense 03/11/25, # 240 tab(s), 0 Refill(s), Pharmacy: [facility] Cervical ca Cancer related pain, 165.1, cm, 03/08/25 14:18:00 EDT, Height, 53, kg, 03/09/25 12:17:00 EDT, Dosing Weight Start Date: 03/10/25 Status: Ordered Quantity: 240.0 Unit: tab(s) Repeat number: 1 Indications: Neoplasm related pain (acute) (chronic); Malignant neoplasm of cervix uteri, unspecified; Start: 02-14-2025 End: 03-01-2025 oxyCODONE 5 mg oral tablet ( IMMEDIATE release ) Dose : 10 mg = 2 tab(s), Oral, q6h, PRN for pain, # 240 tab(s), 0 Refill(s), Pharmacy: [facility] Cervical ca Cancer related pain, 167.6, cm, 12/22/24 8:11:00 EST, Height, 52.4, kg, 02/14/25 11:39:00 EDT, Dosing Weight Start Date: 02/14/25 Stop Date: 03/01/25 Status: Ordered Quantity: 240.0 Unit: tab(s) Repeat number: 1 Indications: Neoplasm related pain (acute) (chronic); Malignant neoplasm of cervix uteri, unspecified; Start: 07-19-2024 oxyCODONE 5 mg oral tablet ( IMMEDIATE release ) Dose : 10 mg = 2 tab(s), Oral, q6h, PRN for pain, dose increased. Please dispense today, # 240 tab(s), 0 Refill(s), Pharmacy: [facility] Cervical ca Cancer related pain, 167.6, cm, 07/19/24 11:26:00 EDT, Height, 60.9, kg, 07/19/24 11:26:00 EDT, Dosing Weight Start Date: 07/19/24 Status: Ordered Start: 05-24-2024 oxyCODONE 5 mg oral tablet ( IMMEDIATE release ) Dose : 5 mg = 1 tab(s), Oral, q6hr, PRN for pain, # 120 tab(s), 0 Refill(s), Pharmacy: [facility] Cancer related pain History of cervical cancer, 167.6, cm, 05/24/24 11:29:00 EDT, Height, 61.5, kg, 05/24/24 11:29:00 EDT, Dosing Weight Start Date: 05/24/24 Status: Ordered Start: 04-01-2024 oxyCODONE 5 mg oral tablet ( IMMEDIATE release ) Dose : 10 mg = 2 tab(s), Oral, q8h, PRN for pain, # 150 tab(s), 0 Refill(s), Pharmacy: [facility] Cancer related pain History of cervical cancer, 167.6, cm, 03/04/24 9:28:00 EDT, Height, 60, kg, 03/04/24 9:28:00 EDT, Dosing Weight Start Date: 04/01/24 Status: Ordered Start: 02-04-2024 oxyCODONE 5 mg oral tablet ( IMMEDIATE release ) Dose : 10 mg = 2 tab(s), Oral, q8h, PRN for pain, # 150 tab(s), 0 Refill(s), Pharmacy: [facility] Cancer related pain History of cervical cancer, 167.6, cm, 03/04/24 9:28:00 EDT, Height, 60, kg, 03/04/24 9:28:00 EDT, Dosing Weight Start Date: 03/04/24 Status: Ordered Start: 01-06-2024 oxyCODONE 10 m g oral tablet Dose : 10 mg = 1 tab(s), Oral, q8h, PRN for pain, # 90 tab(s), 0 Refill(s), Pharmacy: [facility], Cancer related pain History of cervical cancer, 167.6, cm, 01/06/24 10:18:00 EST, Height, 58.3, kg, 01/06/24 10:18:00 EST, Dosing Weight Start Date: 01/06/24 Status: Ordered Start: 12-08-2023 oxyCODONE 10 m g oral tablet Dose : 10 mg = 1 tab(s), Oral, q6h, PRN for pain, # 120 tab(s), 0 Refill(s), Pharmacy: [facility], Cancer related pain History of cervical cancer, 167.6, cm, 12/08/23 14:57:00 EST, Height, 58.2, kg, 12/08/23 14:57:00 EST, Dosing Weight Start Date: 12/08/23 Status: Ordered Start: 11-20-2023 OxyContin 10 m g oral tablet, extended release Dose : 10 mg = 1 tab(s), Oral, q12h, # 60 tab(s), 0 Refill(s), Pharmacy: [facility] Cervical ca, 167.6, cm, 11/19/23 9:33:00 EST, Height, 61.3, kg, 11/19/23 9:33:00 EST, Dosing Weight Start Date: 11/20/23 Status: Ordered Start: 11-05-2023 oxyCODONE 15 m g oral tablet ( IMMEDIATE release ) Dose : 15 mg = 1 tab(s), Oral, q6hr, PRN as needed for pain, # 120 tab(s), 0 Refill(s), Pharmacy: [facility] Cervical cancer, 167.6, cm, 10/22/23 10:21:00 EST, Height, 61.4, kg, 10/22/23 10:21:00 EST, Dosing Weight Start Date: 11/05/23 Status: Ordered Start: 10-16-2023 OxyContin 15 m g oral tablet, extended release Dose : 15 mg = 1 tab(s), Oral, BID, # 60 tab(s), 0 Refill(s), Pharmacy: [facility] Cancer related pain Cervical ca, 167.6, cm, 09/03/23 13:59:00 EDT, Height, 63.6, kg, 09/03/23 13:59:00 EDT, Dosing Weight Start Date: 10/16/23 Status: Ordered Start: 09-12-2023 oxyCODONE 15 m g oral tablet ( IMMEDIATE release ) Dose : 15 mg = 1 tab(s), Oral, q6hr, may fill on 10/05/23, # 120 tab(s), 0 Refill(s), Pharmacy: [facility] Cervical cancer, 167.6, cm, 09/03/23 13:59:00 EDT, Height, 63.6, kg, 09/03/23 13:59:00 EDT, Dosing Weight Start Date: 09/12/23 Status: Ordered Start: 09-12-2023 OxyContin 15 m g oral tablet, extended release Dose : 15 mg = 1 tab(s), Oral, BID, # 60 tab(s), 0 Refill(s), Pharmacy: [facility] Cancer related pain Cervical ca, 167.6, cm, 09/03/23 13:59:00 EDT, Height, 63.6, kg, 09/03/23 13:59:00 EDT, Dosing Weight Start Date: 09/12/23 Status: Ordered Start: 08-21-2023 oxyCODONE 10 m g oral tablet ( IMMEDIATE release ) Dose : 10 mg = 1 tab(s), Oral, q6h, PRN as needed for pain, # 120 tab(s), 0 Refill(s), Pharmacy: [facility] Cancer related pain History of cervical cancer, 167.6, cm, 08/21/23 15:13:00 EDT, Height, 64.2, kg, 08/21/23 15:13:00 EDT, Dosing Weight Start Date: 08/21/23 Status: Ordered Start: 08-06-2023 OxyContin 15 m g oral tablet, extended release Dose : 15 mg = 1 tab(s), Oral, BID, # 60 tab(s), 0 Refill(s), Pharmacy: [facility] Cancer related pain Cervical ca, 167.6, cm, 07/30/23 11:18:00 EDT, Height, 62.6, kg, 07/30/23 11:18:00 EDT, Dosing Weight Start Date: 08/06/23 Status: Ordered Start: 07-24-2023 End: 08-03-2023 oxyCODONE 5 mg oral tablet ( IMMEDIATE release ) Dose : 15 mg = 3 tab(s), Oral, q4hr, PRN as needed for pain, # 180 tab(s), 0 Refill(s), Pharmacy: [facility] Cancer related pain Cervical ca, 167.6, cm, 07/24/23 10:14:00 EDT, Height, 67.8, kg, 07/24/23 10:14:00 EDT, Dosing Weight Start Date: 07/24/23 Stop Date: 08/03/23 Status: Ordered Start: 07-15-2023 OxyContin 15 m g oral tablet, extended release Dose : 15 mg = 1 tab(s), Oral, BID, # 60 tab(s), 0 Refill(s), Pharmacy: [facility] Cancer related pain Cervical ca, 167.6, cm, 07/09/23 7:02:00 EDT, Height, 62.8, kg, 07/09/23 7:02:00 EDT, Dosing Weight Start Date: 07/15/23 Status: Ordered Start: 07-15-2023 End: 07-22-2023 oxyCODONE 5 mg oral tablet ( IMMEDIATE release ) Dose : 15 mg = 3 tab(s), Oral, q4hr, PRN as needed for pain, # 126 tab(s), 0 Refill(s), Pharmacy: [facility] Cancer related pain Cervical ca, 167.6, cm, 07/09/23 7:02:00 EDT, Height, 62.8, kg, 07/09/23 7:02:00 EDT, Dosing Weight Start Date: 07/15/23 Stop Date: 07/22/23 Status: Ordered Start: 06-26-2023 End: 07-26-2023 oxyCODONE 10 mg oral tablet ( IMMEDIATE release ) Dose : 10 mg = 1 tab(s), Oral, q6h, PRN for pain, X 30 day(s), # 120 tab(s), 0 Refill(s), 07/26/23 11:49:00 AM EDT, Pharmacy: [facility] Cervical cancer, 167.6, cm, 06/24/23 13:14:00 EDT, Height, 64, kg, 06/24/23 13:14:00 EDT, Dosing Weight Start Date: 06/26/23 Stop Date: 07/26/23 Status: Ordered Start: 05-07-2023 End: 05-17-2023 oxyCODONE 10 mg oral tablet ( IMMEDIATE release ) Dose : 10 mg = 1 tab(s), Oral, q4h, PRN Pain, X 5 day(s), # 30 tab(s), 0 Refill(s), 05/17/23 10:46:00 EDT, Pharmacy: [id number], Cervical cancer, 167, cm, 04/28/23 13:10:00 EDT, Height, 63.9, kg, 04/28/23 13:10:00 EDT, Dosing Weight Start Date: 05/12/23 Stop Date: 05/17/23 Status: Ordered Start: 02-17-2023 End: 04-03-2023 oxyCODONE 10 mg oral tablet ( IMMEDIATE release ) Dose : 10 mg = 1 tab(s), Oral, q4h, PRN PRN as needed for pain, X 30 day(s), # 180 tab(s), 0 Refill(s), 04/03/23 8:11:00 EDT, Pharmacy: [facility], Cervical cancer Cancer related pain, 167.6, cm, 02/23/23 21:09:00 EDT, Height, 55.7 Start Date: 03/04/23 Stop Date: 04/03/23 Status: Ordered Start: 10-08-2022 End: 10-29-2022 oxyCODONE 10 mg oral tablet ( IMMEDIATE release ) Dose : 10 mg = 1 tab(s), Oral, q4h, PRN abdominal discomfort, X 21 day(s), # 126 tab(s), 0 Refill(s), 10/29/22 14:33:00 EST, Pharmacy: [facility], Cervical cancer, 167.6, cm, 09/30/22 17:45:00 EST, Height, 50.4 Start Date: 10/08/22 Stop Date: 10/29/22 Status: Ordered pantoprazole 40 mg delayed release oral tablet (2 sources) Proton Pump Inhibitor Start: 11-19-2023 pantoprazole 40 mg oral enteric coated tablet Dose : 40 mg = 1 tab(s), Oral, qDayAC, # 30 tab(s), 1 Refill(s), Pharmacy: [facility], [facility] 167.6, cm, 11/19/23 9:33:00 EST, Height, kg, 11/19/23 9:33:00 EST, Dosing Weight Start Date: 11/19/23 Status: Ordered potassium chloride 20 meq oral tablet (1 source) Start: 04-28-2024 Potassium Chloride (Ibe-Mouo-Spm M20) 20 mEq oral tablet, extended release Dose : 20 mEq = 1 tab(s), TAKE 1 TABLET BY MOUTH TWICE DAILY Start Date: 04/28/24 Status: Ordered prochlorperazine 10 mg oral tablet (1 source) Phenothiazine Start: 04-19-2022 End: 06-18-2022 prochlorperazine 10 mg oral tablet Dose : 10 mg = 1 tab(s), Oral, TID, PRN as needed for nausea/vomiting, X 30 day(s), # 90 tab(s), 1 Refill(s), 06/18/22 15:02:00 EDT, Pharmacy: [id number], 167.6, cm, 04/14/22 22:09:00 EDT, Height Start Date: 04/19/22 Stop Date: 06/18/22 Status: Ordered sertraline 25 mg oral tablet (2 sources) Serotonin Reuptake Inhibitor Start: 08-21-2023 Zoloft 25 mg oral tablet Dose : 25 mg = 1 tab(s), Oral, qDay, # 30 tab(s), 1 Refill(s), Pharmacy: [facility], [facility] 167.6, cm, 08/21/23 15:13:00 EDT, Height, kg, 08/21/23 15:13:00 EDT, Dosing Weight Start Date: 08/21/23 Status: Ordered sulfamethoxazole 800 mg / trimethoprim 160 mg oral tablet (7 sources) Dihydrofolate Reductase Inhibitor Antibacterial, Sulfonamide Antimicrobial Start: 03-08-2025 End: 04-07-2025 take 1 tablet by mouth twice daily Bactrim DS 800 mg-160 mg oral tablet Dose = 1 tab(s), Oral, BID, X 30 day(s), # 60 tab(s), 0 Refill(s), Pharmacy: [facility] 165.1, cm, 03/08/25 14:18:00 EDT, Height, 55.2, kg, 03/08/25 14:15:00 EDT, Dosing Weight Start Date: 03/08/25 Stop Date: 04/07/25 Status: Ordered Quantity: 60.0 Unit: tab(s) Repeat number: 1 Indications: Unspecified abdominal pain; Calculus of kidney; Unspecified hydronephrosis; Start: 02-14-2023 End: 02-19-2023 take 1 tablet by mouth every twelve hours Bactrim DS 800 mg-160 mg oral tablet 190.8 mg, Oral, q12h, Dosage expressed as trimethoprim, X 5 day(s), # 10 tab(s), 0 Refill(s), Pharmacy: [facility], 167.6, cm, 01/01/23 16:31:00 EST, Height, 47.7 Start Date: 02/14/23 Stop Date: 02/19/23 Status: Ordered Start: 12-21-2021 End: 12-31-2021 take 1 tablet by mouth twice daily sulfamethoxazole-trimethoprim 800 mg-160 mg oral tablet Dose = 1 tab(s), Oral, BID, # 20 tab(s), 0 Refill(s), 47.6 Start Date: 12/21/21 Stop Date: 12/31/21 Status: Ordered Start: 07-14-2021 take 1 tablet by saloni th every twelve hours sulfamethoxazole-trimethoprim 800 mg-160 mg oral tablet ; 1 tab(s) orally every 12 hours Quantity: 20 Refills: 0 Ordered: 14-Jul-2021 [facility] Shira Start: 14-Jul-2021 Generic Substitution Allowed tamsulosin hydrochloride 0.4 mg oral capsule (2 sources) alpha-Adrenergic Linsey Start: 07-19-2024 tamsu losin 0.4 mg oral capsule Dose : 0.4 mg = 1 cap(s), Oral, BID, # 30 cap(s), 2 Refill(s), Pharmacy: [facility] 167.6, cm, 07/19/24 11:26:00 EDT, Height, kg, 07/19/24 11:26:00 EDT, Dosing Weight Start Date: 07/19/24 Status: Ordered Completed/Discontinued Medications Medication Drug Class(es) Dates Sig (Normalized) Sig (Original) gabapentin 300 mg oral capsule (13 sources) Anti-epileptic Agent Start: 06-09-2023 End: 07-09-2023 take 1 capsule by mouth once daily at bedtime gabapentin 300 mg oral capsule 1 cap(s), Oral, qHS, # 30 cap(s), 0 Refill(s), Pharmacy: [facility], Cervical cancer, 167.6, cm, 05/15/23 15:33:00 EDT, Height, 65.9, kg, 05/15/23 15:33:00 EDT, Dosing Weight Start Date: 06/09/23 Stop Date: 07/09/23 Status: Ordered Start: 04-28-2023 End: 06-07-2023 take 1 capsule by mouth once daily at bedtime gabapentin 300 mg oral capsule 1 cap(s), Oral, qHS, # 30 cap(s), 30, 0 Refill(s), Pharmacy: [facility], 167, cm, 04/28/23 13:10:00 EDT, Height, 63.9, kg, 04/28/23 13:10:00 EDT, Dosing Weight Start Date: 05/08/23 Stop Date: 06/07/23 Status: Ordered Start: 10-08-2022 End: 03-08-2023 gabapentin 300 mg oral capsu le Dose : 300 mg = 1 cap(s), Oral, qHS, 0 Refill(s), 50 Start Date: 02/17/23 Status: Ordered meropenem 1000 mg injection (3 sources) Penem Antibacterial Start: 10-08-2022 meropenem 1000 mg intravenous injection Dose : 1,000 mg =, IV Piggyback, q8h, 0 Refill(s), 50.4 Start Date: 10/08/22 Status: Ordered Start: 04-19-2022 Merrem 1000 mg intravenous injection Dose : 1,000 mg =, IV Piggyback, q8h, 0 Refill(s), 45.4 Start Date: 04/19/22 Status: Ordered naloxone hydrochloride 40 mg/ml nasal spray (4 sources) Opioid Antagonist Start: 02-04-2024 naloxone 4 m g/0.1 mL nasal spray Dose : 4 mg = 1 spray(s), Intranasal, AsDirected, PRN see pharmacy notes, may repeat every 2 to 3 minutes until patient responds, # 2 EA, 0 Refill(s) Start Date: 02/04/24 Status: Ordered promethazine hydrochloride 12.5 mg rectal suppository (2 sources) Phenothiazine Start: 08-16-2022 promethazine 1 2.5 mg rectal suppository Dose : 12.5 mg = 1 supp, Rectal, q6h, PRN for nausea/vomiting, # 40 supp, 0 Refill(s), Pharmacy: [facility], 167.6, cm, 08/08/22 16:51:00 EDT, Height Start Date: 08/16/22 Status: Ordered Problems Active Problems Problem Classification Problem Date Documented Da te Episodic/Chronic Abdominal pain (20 sources) Left flank pain; Translations: [Acute abdomen] Onset: 01-01-2023 04-16-2020 Episodic Acute and unspecified renal failure (1 source) Unspecified kidney failure; Translations: [Unspecified kidney failure] Onset: 05-25-2024 Chronic Acute and unspecified renal failure (1 source) Acute renal failure syndrome; Translations: [Acute kidney failure, unspecified] Onset: 01-01-2023 Episodic Adjustment disorders (1 source) Adjustment disorder with depressed mood; Translations: [Adjustment disorder with depressed mood] Onset: 02-24-2023 Chronic Anxiety disorders (20 sources) Anxiety; Translations: [Anxiety disorder] Onset: 08-09-2022 05-23-2021 Chronic Asthma (20 sources) Asthma; Translations: [Unspecified asthma, uncomplicated] Onset: 09-30-2022 04-16-2020 Chronic Bacterial infection; unspecified site (3 sources) Drug resistance; Translations: [Extended spectrum beta lactamase (ESBL) resistance] Episodic Calculus of urinary tract (5 sources) Kidney stone; Translations: [Calculus of ureter] Onset: 04-04-2025 03-08-2025 Episodic Cancer of cervix (20 sources) Malignant tumor of cervix; Translations: [Malignant neoplasm of cervix uteri, unspecified] Onset: 08-08-2022 09-18-2020 Chronic Cardiac dysrhythmias (1 source) Sinus bradycardia; Translations: [Bradycardia, unspecified] Onset: 04-17-2022 Episodic Chronic kidney disease (2 sources) Chronic kidney disease stage 3; Translations: [Chronic kidney disease, stage 3 unspecified] Onset: 05-17-2024 Chronic Complication of device; implant or graft (3 sources) Disorders of urogenital prostheses or implants; Translations: [Unspecified complication of genitourinary prosthetic device, implant and graft, initial encounter] Episodic Crushing injury or internal injury (20 sources) Injury of kidney 04-16-2020 Episodic E Codes: Fall (1 source) Unspecified fall, initial encounter; Translations: [Unspecified fall, initial encounter] Episodic Essential hypertension (1 source) Essential hypertension; Translations: [Essential (primary) hypertension] Onset: 07-09-2023 Chronic Gastritis and duodenitis (2 sources) Duodenitis; Translations: [Duodenitis without bleeding] Onset: 04-15-2022 Episodic Genitourinary symptoms and ill-defined conditions (10 sources) Urostomy present; Translations: [Other artificial openings of urinary tract status] Onset: 04-18-2022 Chronic Headache; including migraine (1 source) Migraine, unspecified, not intractable, without status migrainosus; Translations: [Migraine, unspecified, not intractable, without status migrainosus] Onset: 05-25-2024 Chronic Menopausal disorders (20 sources) Premature menopause; Translations: [Asymptomatic premature menopause] Onset: 08-11-2022 Chronic Mood disorders (1 source) Mood disorders; Translations: [Depression, unspecified] Onset: 04-25-2024 Nutritional deficiencies (20 sources) Moderate protein energy malnutrition; Translations: [Moderate protein-calorie malnutrition (weight for age 60-74% of standard)] 04-16-2020 Chronic Other aftercare (1 source) Seen by palliative care medicine service; Translations: [Encounter for palliative care] Episodic Other aftercare (1 source) Encounter for palliative care; Translations: [Encounter for palliative care] Onset: 04-04-2025 Episodic Other circulatory disease (3 sources) H/O: artificial organ/tissue; Translations: [Presence of other vascular implants and grafts] Onset: 08-09-2022 Chronic Other connective tissue disease (1 source) Pain in lower limb; Translations: [Pain in leg, unspecified] Onset: 03-03-2023 Episodic Other diseases of kidney and ureters (19 sources) Hydronephrosis 08-28-2023 Episodic Other diseases of kidney and ureters (3 sources) Unspecified hydronephrosis; Translations: [Unspecified hydronephrosis] Onset: 07-24-2023 Episodic Other gastrointestinal disorders (1 source) Constipation, unspecified; Translations: [Constipation, unspecified] Onset: 08-13-2022 Episodic Other gastrointestinal disorders (1 source) Slow transit constipation; Translations: [Slow transit constipation] Onset: 02-25-2023 Episodic Other nervous system disorders (20 sources) Pain due to neoplastic disease; Translations: [Neoplasm related pain (acute) (chronic)] Onset: 02-23-2023 Chronic Other nervous system disorders (2 sources) Neoplasm related pain (acute) (chronic); Translations: [Neoplasm related pain (acute) (chronic)] Onset: 12-08-2023 Chronic Other nutritional; endocrine; and metabolic disorders (5 sources) Loss of appetite; Translations: [Anorexia] Onset: 04-18-2022 Episodic Other nutritional; endocrine; and metabolic disorders (20 sources) Decrease in appetite 04-18-2022 Episodic Other upper respiratory infections (1 source) Acute pharyngitis; Translations: [Acute pharyngitis, unspecified] Onset: 03-03-2023 Episodic Residual codes; unclassified (1 source) Presence of other specified functional implants; Translations: [Presence of other specified functional implants] Onset: 05-17-2024 Chronic Residual codes; unclassified (20 sources) Device in situ 05-15-2020 Episodic Residual codes; unclassified (8 sources) Tobacco user; Translations: [Tobacco use] Onset: 04-15-2022 Episodic Residual codes; unclassified (20 sources) Stoma finding 04-18-2022 Episodic Residual codes; unclassified (1 source) H/O: radiation exposure; Translations: [Personal history of irradiation] Onset: 08-09-2022 Episodic Residual codes; unclassified (2 sources) H/O: chemotherapy; Translations: [Personal history of antineoplastic chemotherapy] Onset: 08-09-2022 Episodic Residual codes; unclassified (1 source) Procedure carried out on subject; Translations: [Encounter for prophylactic measures, unspecified] Onset: 08-09-2022 Episodic Residual codes; unclassified (1 source) Pain; Translations: [Pain, unspecified] Episodic Spondylosis; intervertebral disc disorders; other back problems (1 source) Disorder of sacrum; Translations: [Sacrococcygeal disorders, not elsewhere classified] Onset: 04-28-2023 Episodic Substance-related disorders (2 sources) Nicotine dependence, unspecified, uncomplicated; Translations: [Nicotine dependence, other tobacco product, uncomplicated] Onset: 05-25-2024 Chronic Unclassified (2 sources) ABNORMAL LABS 07-11-2021 Comment on above: ABNORMAL LABS Unclassified (1 source) FUV 07-13-2021 Comment on above: FUV Unclassified (20 sources) History of antineoplastic chemotherapy 09-18-2020 Unclassified (20 sources) Patient encounter status 05-23-2021 Unclassified (4 sources) History of SARS-CoV-2 08-08-2022 Unclassified (1 source) Patient's other noncompliance with medication regimen for other reason; Translations: [Patient's other noncompliance with medication regimen for other reason] Onset: 04-25-2024 Urinary tract infections (20 sources) Urinary tract infectious disease; Translations: [Urinary tract infection, site not specified] Onset: 04-15-2022 07-11-2021 Episodic Past or Other Problems Problem Classification Problem Date Documented Da te Episodic/Chronic Allergic reactions (2 sources) Allergy status to penicillin; Translations: [Allergy status to other drugs, medicaments and biological substances status] Onset: 05-25-2024 Episodic Cancer of cervix (20 sources) History of malignant neoplasm of cervix; Translations: [Personal history of malignant neoplasm of cervix uteri] Onset: 12-08-2023 Episodic Complications of surgical procedures or medical care (2 sources) Other complication of incontinent external stoma of urinary tract; Translations: [Other complication of incontinent external stoma of urinary tract] Onset: 04-22-2024 Episodic Fluid and electrolyte disorders (20 sources) Dehydration; Translations: [Hypokalemia] Onset: 04-25-2024 04-16-2020 Episodic Gastrointestinal hemorrhage (3 sources) Hematemesis; Translations: [Hematemesis] Onset: 05-25-2024 Episodic Genitourinary symptoms and ill-defined conditions (20 sources) Urinary tract obstruction; Translations: [Retention of urine] Onset: 09-30-2022 04-16-2020 Episodic Nausea and vomiting (20 sources) Nausea and vomiting; Translations: [Nausea with vomiting, unspecified] Onset: 04-15-2022 04-16-2020 Episodic Other aftercare (1 source) retirement (current) use of opiate analgesic; Translations: [manager intermediate (current) use of opiate analgesic] Onset: 05-25-2024 Episodic Other aftercare (1 source) Other manager intermediate (current) drug therapy; Translations: [Other assisted (current) drug therapy] Onset: 04-25-2024 Episodic Residual codes; unclassified (2 sources) Pain, unspecified; Translations: [Pain, unspecified] Onset: 07-30-2023 Episodic Residual codes; unclassified (3 sources) Procedure and treatment not carried out due to patient leaving prior to being seen by health care provider; Translations: [Procedure and treatment not carried out due to patient leaving prior to being seen by health care provider] Onset: 06-24-2024 Episodic Substance-related disorders (1 source) Cannabis use, unspecified, uncomplicated; Translations: [Cannabis use, unspecified, uncomplicated] Onset: 05-25-2024 Episodic Results Test Name Value Interpretation Reference Range Facility .Auto Diffon 04-07-2025 Basophil, Absolute 0.1 10 3/mcL Normal 0.0-0.3 [facility] Comment on above: Performed By: #### G FR, LAC, ADIFF, CBC, ANEU, MG, BMP ####[address] [address] Basophils/100 WBC (Bld) 1.1 % Normal 0.0-2.5 [facility] Comment on above: Performed By: #### G FR, LAC, ADIFF, CBC, ANEU, MG, BMP ####[address] [address] Eosinophil, Absolute 0.2 10 3/mcL Normal 0.0-0.7 [facility] Comment on above: Performed By: #### G FR, LAC, ADIFF, CBC, ANEU, MG, BMP ####[address] [address] Eosinophils/100 WBC (Bld) 3.8 % Normal 0.0-6.0 [facility] Comment on above: Performed By: #### G FR, LAC, ADIFF, CBC, ANEU, MG, BMP ####[address] [address] Lymphocyte, Absolute 2.1 10 3/mcL Normal 0.9-4.3 [facility] Comment on above: Performed By: #### G FR, LAC, ADIFF, CBC, ANEU, MG, BMP ####[address] [address] Lymphocytes/100 WBC (Bld) 32.4 % Normal 20.0-40.0 [facility] Comment on above: Performed By: #### G FR, LAC, ADIFF, CBC, ANEU, MG, BMP ####[address] [address] Monocyte, Absolute 0.6 10 3/mcL Normal 0.1-1.4 [facility] Comment on above: Performed By: #### G FR, LAC, ADIFF, CBC, ANEU, MG, BMP ####[place] [id number] [place] [address] Monocytes/100 WBC (Bld) 8.9 % Normal 2.0-13.0 [facility] Comment on above: Performed By: #### G FR, LAC, ADIFF, CBC, ANEU, MG, BMP ####[address] [address] Neutrophils/100 WBC (Bld) 53.8 % Normal 50.0-75.0 [facility] Comment on above: Performed By: #### G FR, LAC, ADIFF, CBC, ANEU, MG, BMP ####[place] [id number] .GFRon 04-07-2025 Estimated Glomerular Filtration Rate 87 ml/min/1.73sqm Normal [facility] Comment on above: Result Comment: Stages of Chronic Kidney Disease (CKD) Stage Description eGFR(ml/min/1.73 sq.m.) CKD 1 Normal kidney function or >=90 normal kindney function with possible kidney damage (ex. Proteinuria) CKD 2 Kidney damage with mild loss 60-89 of kidney function CKD 3a Mild to moderate loss of kidney 45-59 function CKD 3b Moderate to severe loss of 30-44 of kindey function CKD 4 Severe loss of kidney function 15-29 CKD 5 Kidney failure <15 Note: (go live 2024) the eGFR calculation was updated to the 2020 CKD-EPI creatinine equation without a race factor to calculate the eGFR results. Performed By: #### G FR, LAC, ADIFF, CBC, ANEU, MG, BMP ####[place] [address] .NEUABSon 04-07-2025 Neutrophil, Absolute 3.5 10 3/mcL Normal 2.3-8.1 [facility] Comment on above: Performed By: #### G FR, LAC, ADIFF, CBC, ANEU, MG, BMP ####[place] [address] BMPon 04-07-2025 BUN/Creatinine Ratio 10.2 ratio Normal 10.0-22.0 [facility] Comment on above: Performed By: #### G FR, LAC, ADIFF, CBC, ANEU, MG, BMP ####[address] [address] Calcium [Mass/Vol] 9.4 mg/dL Normal 8.7-10.4 [facility] Comment on above: Performed By: #### G FR, LAC, ADIFF, CBC, ANEU, MG, BMP ####[address] [address] Chloride [Moles/Vol] 110 mmol/L Normal 98-110 [facility] Comment on above: Performed By: #### G FR, LAC, ADIFF, CBC, ANEU, MG, BMP ####[address] [address] CO2 [Moles/Vol] 27 mmol/L Normal 22-32 [facility] Comment on above: Performed By: #### G FR, LAC, ADIFF, CBC, ANEU, MG, BMP ####[address] [address] Creatinine [Mass/Vol] 0.88 mg/dL Normal 0.50-1.20 [facility] Comment on above: Result Comment: Test ing performed on Connected analyzer using enzymatic creatinine methodology. Performed By: #### G FR, LAC, ADIFF, CBC, ANEU, MG, BMP ####[place] [address] Electrolyte Balance 6.0 mEq/L Normal 4.0-15.0 [facility] Comment on above: Performed By: #### G FR, LAC, ADIFF, CBC, ANEU, MG, BMP ####[place] [id number] Glucose [Mass/Vol] 101 mg/dL Normal 70-110 [facility] Comment on above: Performed By: #### G FR, LAC, ADIFF, CBC, ANEU, MG, BMP ####[place] [address] Potassium [Moles/Vol] 3.6 mmol/L Normal 3.5-5.0 [facility] Comment on above: Performed By: #### G FR, LAC, ADIFF, CBC, ANEU, MG, BMP ####[place] [address] Sodium [Moles/Vol] 143 mmol/L Normal 136-145 [facility] Comment on above: Performed By: #### G FR, LAC, ADIFF, CBC, ANEU, MG, BMP ####[place] [address] Urea nitrogen [Mass/Vol] 9.0 mg/dL Normal 8.0-22.0 [facility] Comment on above: Performed By: #### G FR, LAC, ADIFF, CBC, ANEU, MG, BMP ####[place] [address] CBCon 04-07-2025 Erythrocyte distribution width (RBC) [Ratio] 15.2 % Normal 11.5-15.5 [facility] Comment on above: Performed By: #### G FR, LAC, ADIFF, CBC, ANEU, MG, BMP ####[place] [address] Hematocrit (Bld) [Volume fraction] 38.2 % Normal 34.0-46.0 [facility] Comment on above: Performed By: #### G FR, LAC, ADIFF, CBC, ANEU, MG, BMP ####[place] [address] Hgb 13.2 G/dL Normal 12.0-16.0 [facility] Comment on above: Performed By: #### G FR, LAC, ADIFF, CBC, ANEU, MG, BMP ####[place] [address] MCH (RBC) [Entitic mass] 33.2 pg High 27.0-33.0 [facility] Comment on above: Performed By: #### G FR, LAC, ADIFF, CBC, ANEU, MG, BMP ####[place] [address] MCHC 34.6 G/dL Normal 32.0-36.0 [facility] Comment on above: Performed By: #### G FR, LAC, ADIFF, CBC, ANEU, MG, BMP ####[place] [address] MCV (RBC) [Entitic vol] 95.8 fL Normal 80.0-99.0 [facility] Comment on above: Performed By: #### G FR, LAC, ADIFF, CBC, ANEU, MG, BMP ####[place] [address] Platelet 335 10 3/mcL Normal 150-450 [facility] Comment on above: Performed By: #### G FR, LAC, ADIFF, CBC, ANEU, MG, BMP ####[place] [address] Platelet mean volume (Bld) [Entitic vol] 7.4 fL Normal 6.6-10.5 [facility] Comment on above: Performed By: #### G FR, LAC, ADIFF, CBC, ANEU, MG, BMP ####[place] [address] RBC 3.99 10 6/mcL Low 4.10-5.30 [facility] Comment on above: Performed By: #### G FR, LAC, ADIFF, CBC, ANEU, MG, BMP ####[place] [address] WBC 6.4 10 3/mcL Normal 4.5-10.8 [facility] Comment on above: Performed By: #### G FR, LAC, ADIFF, CBC, ANEU, MG, BMP ####[place] [address] LACon 04-07-2025 Lactic Acid Lvl 0.5 mmol/L Normal 0.5-2.2 [facility] Comment on above: Performed By: #### G FR, LAC, ADIFF, CBC, ANEU, MG, BMP ####[place] [address] MGon 04-07-2025 Magnesium [Mass/Vol] 2.1 mg/dL Normal 1.6-2.4 [facility] Comment on above: Performed By: #### G FR, LAC, ADIFF, CBC, ANEU, MG, BMP ####[address] [address] .Auto Diffon 04-06-2025 Basophil, Absolute 0.1 10 3/mcL Normal 0.0-0.3 [facility] Comment on above: Performed By: #### A DIFF, ANEU, CBC, GFR, BMP, W ####[address] [address] Basophils/100 WBC (Bld) 1.3 % Normal 0.0-2.5 [facility] Comment on above: Performed By: #### A DIFF, ANEU, CBC, GFR, BMP, W ####[address] [address] Eosinophil, Absolute 0.1 10 3/mcL Normal 0.0-0.7 [facility] Comment on above: Performed By: #### A DIFF, ANEU, CBC, GFR, BMP, YOUNG ####[address] [address] Eosinophils/100 WBC (Bld) 1.5 % Normal 0.0-6.0 [facility] Comment on above: Performed By: #### A DIFF, ANEU, CBC, GFR, BMP, W ####[address] [address] Lymphocyte, Absolute 2.0 10 3/mcL Normal 0.9-4.3 [facility] Comment on above: Performed By: #### A DIFF, ANEU, CBC, GFR, BMP, YOUNG ####[address] [address] Lymphocytes/100 WBC (Bld) 20.5 % Normal 20.0-40.0 [facility] Comment on above: Performed By: #### A DIFF, ANEU, CBC, GFR, BMP, W ####[address] [address] Monocyte, Absolute 0.8 10 3/mcL Normal 0.1-1.4 [facility] Comment on above: Performed By: #### A DIFF, ANEU, CBC, GFR, BMP, MDW ####[address] [address] Monocytes/100 WBC (Bld) 7.9 % Normal 2.0-13.0 [facility] Comment on above: Performed By: #### A DIFF, ANEU, CBC, GFR, BMP, MDW ####[address] [address] Neutrophils/100 WBC (Bld) 68.8 % Normal 50.0-75.0 [facility] Comment on above: Performed By: #### A DIFF, ANEU, CBC, GFR, BMP, MDW ####[address] [address] .GFRon 04-06-2025 Estimated Glomerular Filtration Rate 80 ml/min/1.73sqm Normal [facility] Comment on above: Result Comment: Stages of Chronic Kidney Disease (CKD) Stage Description eGFR(ml/min/1.73 sq.m.) CKD 1 Normal kidney function or >=90 normal kindney function with possible kidney damage (ex. Proteinuria) CKD 2 Kidney damage with mild loss 60-89 of kidney function CKD 3a Mild to moderate loss of kidney 45-59 function CKD 3b Moderate to severe loss of 30-44 of kindey function CKD 4 Severe loss of kidney function 15-29 CKD 5 Kidney failure <15 Note: (go live 2024) the eGFR calculation was updated to the 2020 CKD-EPI creatinine equation without a race factor to calculate the eGFR results. Performed By: #### A DIFF, ANEU, CBC, GFR, BMP, MDW ####[address] [address] .MDWon 04-06-2025 Monocyte Distribution Width 21.04 High 0.00-20.00 [facility] Comment on above: Result Comment: For adults in ED, MDW>20.0 may be associated with a higher risk of sepsis during the first 12hrs of hospital admission Performed By: #### A DIFF, ANEU, CBC, GFR, BMP, MDW ####[address] [address] .NEUABSon 04-06-2025 Neutrophil, Absolute 6.8 10 3/mcL Normal 2.3-8.1 [facility] Comment on above: Performed By: #### A DIFF, ANEU, CBC, GFR, ZENOBIA, YOUNG ####[address] [address] BMPon 04-06-2025 BUN/Creatinine Ratio 10.5 ratio Normal 10.0-22.0 [facility] Comment on above: Performed By: #### A DIFF, ANEU, CBC, GFR, YOUNG FREGOSO ####[place] [address] Calcium [Mass/Vol] 9.6 mg/dL Normal 8.7-10.4 [facility] Comment on above: Performed By: #### A DIFF, ANEU, CBC, GFR, BMPYOUNG ####[place] [address] Chloride [Moles/Vol] 108 mmol/L Normal 98-110 [facility] Comment on above: Performed By: #### A DIFF, ANEU, CBC, GFR, YOUNG FREGOSO ####[place] [address] CO2 [Moles/Vol] 28 mmol/L Normal 22-32 [facility] Comment on above: Performed By: #### A DIFF, ANEU, CBC, GFR, YOUNG FREGOSO ####[place] [address] Creatinine [Mass/Vol] 0.95 mg/dL Normal 0.50-1.20 [facility] Comment on above: Result Comment: Test ing performed on Connected analyzer using enzymatic creatinine methodology. Performed By: #### A DIFF, ANEU, CBC, GFR, YOUNG FREGOSO ####[place] [address] Electrolyte Balance 4.0 mEq/L Normal 4.0-15.0 [facility] Comment on above: Performed By: #### A DIFF, ANEU, CBC, GFR, BMPYOUNG ####[place] [address] Glucose [Mass/Vol] 84 mg/dL Normal 70-110 [facility] Comment on above: Performed By: #### A DIFF, ANEU, CBC, GFR, BMP, YOUNG ####[place] [address] Potassium [Moles/Vol] 4.4 mmol/L Normal 3.5-5.0 [facility] Comment on above: Performed By: #### A DIFF, ANEU, CBC, GFR, BMP, YOUNG ####[place] [address] Sodium [Moles/Vol] 140 mmol/L Normal 136-145 [facility] Comment on above: Performed By: #### A DIFF, ANEU, CBC, GFR, BMP, YOUNG ####[place] [address] Urea nitrogen [Mass/Vol] 10.0 mg/dL Normal 8.0-22.0 [facility] Comment on above: Performed By: #### A DIFF, ANEU, CBC, GFR, BMP, YOUNG ####[place] [address] CBCon 04-06-2025 Erythrocyte distribution width (RBC) [Ratio] 15.2 % Normal 11.5-15.5 [facility] Comment on above: Performed By: #### A DIFF, ANEU, CBC, GFR, BMPYOUNG ####[place] [address] Hematocrit (Bld) [Volume fraction] 40.7 % Normal 34.0-46.0 [facility] Comment on above: Performed By: #### A DIFF, ANEU, CBC, GFR, BMP, YOUNG ####[place] [address] Hgb 13.7 G/dL Normal 12.0-16.0 [facility] Comment on above: Performed By: #### A DIFF, ANEU, CBC, GFR, BMPYOUNG ####[place] [address] MCH (RBC) [Entitic mass] 32.5 pg Normal 27.0-33.0 [facility] Comment on above: Performed By: #### A DIFF, ANEU, CBC, GFR, BMPYOUNG ####[place] [address] MCHC 33.8 G/dL Normal 32.0-36.0 [facility] Comment on above: Performed By: #### A DIFF, ANEU, CBC, GFR, BMP, YOUNG ####[place] [address] MCV (RBC) [Entitic vol] 96.3 fL Normal 80.0-99.0 [facility] Comment on above: Performed By: #### A DIFF, ANEU, CBC, GFR, BMP, YOUNG ####[place] [address] Platelet 329 10 3/mcL Normal 150-450 [facility] Comment on above: Performed By: #### A DIFF, ANEU, CBC, GFR, BMPYOUNG ####[place] [address] Platelet mean volume (Bld) [Entitic vol] 7.5 fL Normal 6.6-10.5 [facility] Comment on above: Performed By: #### A DIFF, ANEU, CBC, GFR, YOUNG FREGOSO ####[place] [address] RBC 4.22 10 6/mcL Normal 4.10-5.30 [facility] Comment on above: Performed By: #### A DIFF, ANEU, CBC, GFR, BMP, YOUNG ####[place] [address] WBC 9.9 10 3/mcL Normal 4.5-10.8 [facility] Comment on above: Performed By: #### A DIFF, ANEU, CBC, GFR, BMP, YOUNG ####[place] [address] UAon 04-06-2025 Color (U) Yellow Normal [facility] Comment on above: Performed By: #### U A ####[place] [address] Glucose (U) [Mass/Vol] Negative Normal Negative [facility] Comment on above: Performed By: #### U A ####[address], [place] [address] Ketones Ql (U) Negative Normal Neg-Trace [facility] Comment on above: Performed By: #### U A ####[place] [address] UA Appear Clear Normal Clear [facility] Comment on above: Performed By: #### U A ####[place] [address] UA Blood Negative Normal Neg-Trace [facility] Comment on above: Performed By: #### U A ####[place] [address] UA Leuk Est Negative Normal Negative [facility] Comment on above: Performed By: #### U A ####[place] [address] UA Nitrite Negative Normal Negative [facility] Comment on above: Performed By: #### U A ####[place] [address] UA pH 6.5 Normal 5.0 - 8.0 [facility] Comment on above: Performed By: #### U A ####[place] [address] UA Protein Negative Normal Negative [facility] Comment on above: Performed By: #### U A ####[place] [address] UA Spec Grav <=1.005 Abnormal 1.006-1.029 [facility] Comment on above: Performed By: #### U A ####[place] [address] UA Specimen Type Clean Catch Normal [facility] Comment on above: Performed By: #### U A ####[place] [address] UA Urobilinogen 0.2 E.U./dL Normal 0.2-1.0 [facility] Comment on above: Performed By: #### U A ####[place] [address] Urobilinogen (U) [Mass/Vol] Negative Normal Neg-Trace [facility] Comment on above: Performed By: #### U A ####[facility] [place] [address] US RENALon 04-06-2025 US RENAL ORIGINAL EXAMINATION: ULTRASOUND OF THE KIDNEYS 04/06/2025 4:46 pm COMPARISON: CT abdomen pelvis April 04, 2025. HISTORY: ORDERING SYSTEM PROVIDED HISTORY: Reason for Exam: stones, L flank pain FINDINGS: The right kidney measures 11.2 cm in length and the left kidney measures 0.7 cm in length. Redemonstrated left percutaneous nephrostomy tube. Mild left pelvicaliectasis. IMPRESSION: Redemonstrated left percutaneous nephrostomy tube. Mild left pelvicaliectasis. Interpreted by: Scooby Jose Preliminary Report By: Scooby Jose Electronically signed By Scooby Jose Dictated Date: 04/06/2025 4:55:15 PM Prelim Date: 04/06/2025 4:58:12 PM Sign Date: 04/06/2025 4:58:12 PM Ordering Provider: DAO IVAN [facility] XR ABDOMEN APon 04-06-2025 XR ABDOMEN AP ORIGINAL EXAMINATION: ONE SUPINE XRAY VIEW(S) OF THE ABDOMEN04/06/2025 3:46 pm ABDOMEN 1 VIEW/KUB X-ray abdomen. COMPARISON: 04/04/2025. HISTORY: ORDERING SYSTEM PROVIDED HISTORY: Reason for Exam: L flank pain, known stone FINDINGS: Left pigtail nephrostomy tube in place. Couple tiny left pelvic calcifications measuring up to 3 mm likely represent distal left ureteral calculi seen on prior CT. Nonobstructive bowel gas pattern. No aggressive osseous lesions. IMPRESSION: Stable positioning of left nephrostomy tube. Couple tiny calcifications within the left pelvis likely represent left distal ureteral calculi seen on prior CT. I have personally reviewed the images of this examination and agree with the resident's findings and interpretation. Interpreted by: Tricia Adamson Preliminary Report By: Noemi Salgado MD Electronically signed By Tricia Adamson Dictated Date: 04/06/2025 3:49:57 PM Prelim Date: 04/06/2025 4:01:45 PM Sign Date: 04/06/2025 4:01:45 PM Ordering Provider: DAO IVAN [facility] .Auto Diffon 04-05-2025 Basophil, Absolute 0.1 10 3/mcL Normal 0.0-0.3 [facility] Comment on above: Performed By: #### B MP, GFR, ANEU, CBC, ADIFF ####[address] [address] Basophils/100 WBC (Bld) 1.4 % Normal 0.0-2.5 [facility] Comment on above: Performed By: #### B MP, GFR, ANEU, CBC, ADIFF ####[address] [address] Eosinophil, Absolute 0.3 10 3/mcL Normal 0.0-0.7 [facility] Comment on above: Performed By: #### B MP, GFR, ANEU, CBC, ADIFF ####[address] [address] Eosinophils/100 WBC (Bld) 3.7 % Normal 0.0-6.0 [facility] Comment on above: Performed By: #### B MP, GFR, ANEU, CBC, ADIFF ####[address] [address] Lymphocyte, Absolute 2.2 10 3/mcL Normal 0.9-4.3 [facility] Comment on above: Performed By: #### B MP, GFR, ANEU, CBC, ADIFF ####[address] [address] Lymphocytes/100 WBC (Bld) 31.9 % Normal 20.0-40.0 [facility] Comment on above: Performed By: #### B MP, GFR, ANEU, CBC, ADIFF ####[address] [address] Monocyte, Absolute 0.7 10 3/mcL Normal 0.1-1.4 [facility] Comment on above: Performed By: #### B MP, GFR, ANEU, CBC, ADIFF ####[address] [address] Monocytes/100 WBC (Bld) 9.8 % Normal 2.0-13.0 [facility] Comment on above: Performed By: #### B MP, GFR, ANEU, CBC, ADIFF ####[place] [address] Neutrophils/100 WBC (Bld) 53.2 % Normal 50.0-75.0 [facility] Comment on above: Performed By: #### B MP, GFR, ANEU, CBC, ADIFF ####[place] [address] .GFRon 04-05-2025 Estimated Glomerular Filtration Rate 96 ml/min/1.73sqm Normal [facility] Comment on above: Result Comment: Stages of Chronic Kidney Disease (CKD) Stage Description eGFR(ml/min/1.73 sq.m.) CKD 1 Normal kidney function or >=90 normal kindney function with possible kidney damage (ex. Proteinuria) CKD 2 Kidney damage with mild loss 60-89 of kidney function CKD 3a Mild to moderate loss of kidney 45-59 function CKD 3b Moderate to severe loss of 30-44 of kindey function CKD 4 Severe loss of kidney function 15-29 CKD 5 Kidney failure <15 Note: (go live 2024) the eGFR calculation was updated to the 2020 CKD-EPI creatinine equation without a race factor to calculate the eGFR results. Performed By: #### B MP, GFR, ANEU, CBC, ADIFF ####[place] [address] .NEUABSon 04-05-2025 Neutrophil, Absolute 3.7 10 3/mcL Normal 2.3-8.1 [facility] Comment on above: Performed By: #### B MP, GFR, ANEU, CBC, ADIFF ####[place] [id number] BMPon 04-05-2025 BUN/Creatinine Ratio 12.3 ratio Normal 10.0-22.0 [facility] Comment on above: Order Comment: Routi ne for 0501 the morning of patient admission. Performed By: #### B MP, GFR, ANEU, CBC, ADIFF ####[place] [address] Calcium [Mass/Vol] 8.9 mg/dL Normal 8.7-10.4 [facility] Comment on above: Order Comment: Routi ne for 0501 the morning of patient admission. Performed By: #### B MP, GFR, ANEU, CBC, ADIFF ####[place] [phone] Chloride [Moles/Vol] 110 mmol/L Normal 98-110 [facility] Comment on above: Order Comment: Routi ne for 0501 the morning of patient admission. Performed By: #### B MP, GFR, ANEU, CBC, ADIFF ####[place] [phone] CO2 [Moles/Vol] 26 mmol/L Normal 22-32 [facility] Comment on above: Order Comment: Routi ne for 0501 the morning of patient admission. Performed By: #### B MP, GFR, ANEU, CBC, ADIFF ####[place] [address] Creatinine [Mass/Vol] 0.81 mg/dL Normal 0.50-1.20 [facility] Comment on above: Order Comment: Routi ne for 0501 the morning of patient admission. Result Comment: Test ing performed on Connected analyzer using enzymatic creatinine methodology. Performed By: #### B MP, GFR, ANEU, CBC, ADIFF ####[place] [address] Electrolyte Balance 5.0 mEq/L Normal 4.0-15.0 [facility] Comment on above: Order Comment: Routi ne for 0501 the morning of patient admission. Performed By: #### B MP, GFR, ANEU, CBC, ADIFF ####[place] [phone] Glucose [Mass/Vol] 84 mg/dL Normal 70-110 [facility] Comment on above: Order Comment: Routi ne for 0501 the morning of patient admission. Performed By: #### B MP, GFR, ANEU, CBC, ADIFF ####[place] [phone] Potassium [Moles/Vol] 4.2 mmol/L Normal 3.5-5.0 [facility] Comment on above: Order Comment: Routi ne for 0501 the morning of patient admission. Result Comment: Spec imen slightly hemolyzed. Performed By: #### B MP, GFR, ANEU, CBC, ADIFF ####[place] [address] Sodium [Moles/Vol] 141 mmol/L Normal 136-145 [facility] Comment on above: Order Comment: Routi ne for 0501 the morning of patient admission. Performed By: #### B MP, GFR, ANEU, CBC, ADIFF ####[place] [address] Urea nitrogen [Mass/Vol] 10.0 mg/dL Normal 8.0-22.0 [facility] Comment on above: Order Comment: Routi ne for 0501 the morning of patient admission. Performed By: #### B MP, GFR, ANEU, CBC, ADIFF ####[place] [address] CBCon 04-05-2025 Erythrocyte distribution width (RBC) [Ratio] 15.6 % High 11.5-15.5 [facility] Comment on above: Order Comment: Routi ne for 0501 the morning of patient admission. Performed By: #### B MP, GFR, ANEU, CBC, ADIFF ####[place] [address] Hematocrit (Bld) [Volume fraction] 37.4 % Normal 34.0-46.0 [facility] Comment on above: Order Comment: Routi ne for 0501 the morning of patient admission. Performed By: #### B MP, GFR, ANEU, CBC, ADIFF ####[place] [address] Hgb 12.7 G/dL Normal 12.0-16.0 [facility] Comment on above: Order Comment: Routi ne for 0501 the morning of patient admission. Performed By: #### B MP, GFR, ANEU, CBC, ADIFF ####[place] [phone] MCH (RBC) [Entitic mass] 32.9 pg Normal 27.0-33.0 [facility] Comment on above: Order Comment: Routi ne for 0501 the morning of patient admission. Performed By: #### B MP, GFR, ANEU, CBC, ADIFF ####[place] [address] MCHC 34.0 G/dL Normal 32.0-36.0 [facility] Comment on above: Order Comment: Routi ne for 0501 the morning of patient admission. Performed By: #### B MP, GFR, ANEU, CBC, ADIFF ####[place] [address] MCV (RBC) [Entitic vol] 96.7 fL Normal 80.0-99.0 [facility] Comment on above: Order Comment: Routi ne for 0501 the morning of patient admission. Performed By: #### B MP, GFR, ANEU, CBC, ADIFF ####[place] [address] Platelet 369 10 3/mcL Normal 150-450 [facility] Comment on above: Order Comment: Routi ne for 0501 the morning of patient admission. Performed By: #### B MP, GFR, ANEU, CBC, ADIFF ####[place] [address] Platelet mean volume (Bld) [Entitic vol] 7.7 fL Normal 6.6-10.5 [facility] Comment on above: Order Comment: Routi ne for 0501 the morning of patient admission. Performed By: #### B MP, GFR, ANEU, CBC, ADIFF ####[place] [address] RBC 3.87 10 6/mcL Low 4.10-5.30 [facility] Comment on above: Order Comment: Routi ne for 0501 the morning of patient admission. Performed By: #### B MP, GFR, ANEU, CBC, ADIFF ####[place] [address] WBC 7.0 10 3/mcL Normal 4.5-10.8 [facility] Comment on above: Order Comment: Routi ne for 0501 the morning of patient admission. Performed By: #### B MP, GFR, ANEU, CBC, ADIFF ####[place] [address] .Auto Diffon 04-04-2025 Basophil, Absolute 0.2 10 3/mcL Normal 0.0-0.3 [facility] Comment on above: Performed By: #### C BC, BMP, GFR, ADGURMEET CHOUDHURY MDW ####[address] [address] Basophils/100 WBC (Bld) 1.4 % Normal 0.0-2.5 [facility] Comment on above: Performed By: #### C BC, BMP, GFR, ADIFF, YOUNG LEVI ####[address] [address] Eosinophil, Absolute 0.2 10 3/mcL Normal 0.0-0.7 [facility] Comment on above: Performed By: #### C BC, BMP, GFR, ADMACEY, YOUNG LEVI ####[address] [address] Eosinophils/100 WBC (Bld) 1.3 % Normal 0.0-6.0 [facility] Comment on above: Performed By: #### C BC, BMP, GFR, ADGURMEET CHOUDHURY MDW ####[address] [address] Lymphocyte, Absolute 2.3 10 3/mcL Normal 0.9-4.3 [facility] Comment on above: Performed By: #### C BC, BMP, GFR, ADGURMEET CHOUDHURY MDW ####[address] [address] Lymphocytes/100 WBC (Bld) 20.4 % Normal 20.0-40.0 [facility] Comment on above: Performed By: #### C BC, BMP, GFR, ADMACEY, YOUNG LEVI ####[address] [address] Monocyte, Absolute 1.1 10 3/mcL Normal 0.1-1.4 [facility] Comment on above: Performed By: #### C BC, BMP, GFR, ADMACEY, YOUNG LEVI ####[address] [address] Monocytes/100 WBC (Bld) 9.3 % Normal 2.0-13.0 [facility] Comment on above: Performed By: #### C BC, BMP, GFR, ADGURMEET CHOUDHURY MDW ####[address] [address] Neutrophils/100 WBC (Bld) 67.6 % Normal 50.0-75.0 [facility] Comment on above: Performed By: #### C BC, BMP, GFR, ADGURMEET CHOUDHURY MDW ####[place] [address] .GFRon 04-04-2025 Estimated Glomerular Filtration Rate 92 ml/min/1.73sqm Normal [facility] Comment on above: Result Comment: Stages of Chronic Kidney Disease (CKD) Stage Description eGFR(ml/min/1.73 sq.m.) CKD 1 Normal kidney function or >=90 normal kindney function with possible kidney damage (ex. Proteinuria) CKD 2 Kidney damage with mild loss 60-89 of kidney function CKD 3a Mild to moderate loss of kidney 45-59 function CKD 3b Moderate to severe loss of 30-44 of kindey function CKD 4 Severe loss of kidney function 15-29 CKD 5 Kidney failure <15 Note: (go live 2024) the eGFR calculation was updated to the 2020 CKD-EPI creatinine equation without a race factor to calculate the eGFR results. Performed By: #### C BC, BMP, GFR, ADGURMEET CHOUDHURY MDW ####[place] [address] .MDWon 04-04-2025 Monocyte Distribution Width 18.36 Normal 0.00-20.00 [facility] Comment on above: Result Comment: For ED adult patients suspected of sepsis, MDW<=20.0 does not rule out sepsis or risk of sepsis Performed By: #### C BC, BMP, GFR, ADGURMEET CHOUDHURY MDW ####[place] [address] .NEUABSon 04-04-2025 Neutrophil, Absolute 7.8 10 3/mcL Normal 2.3-8.1 [facility] Comment on above: Performed By: #### C BC, BMP, GFR, ADGURMEET CHOUDHURY MDW ####[address] [address] BMPon 04-04-2025 BUN/Creatinine Ratio 14.3 ratio Normal 10.0-22.0 [facility] Comment on above: Performed By: #### C BC, BMP, GFR, ADGURMEET CHOUDHURY MDW ####[address] [address] Calcium [Mass/Vol] 10.2 mg/dL Normal 8.7-10.4 [facility] Comment on above: Performed By: #### C BC, BMP, GFR, ADGURMEET CHOUDHURY MDW ####[place] [phone] Chloride [Moles/Vol] 108 mmol/L Normal 98-110 [facility] Comment on above: Performed By: #### C BC, BMP, GFR, ADGURMEET CHOUDHURY MDW ####[place] [phone] CO2 [Moles/Vol] 27 mmol/L Normal 22-32 [facility] Comment on above: Performed By: #### C BC, BMP, GFR, GURMEET SIDDIQUI MDW ####[place] [phone] Creatinine [Mass/Vol] 0.84 mg/dL Normal 0.50-1.20 [facility] Comment on above: Result Comment: Test ing performed on Connected analyzer using enzymatic creatinine methodology. Performed By: #### C BC, BMP, GFR, GURMEET SIDDIQUI MDW ####[place] [phone] Electrolyte Balance 6.0 mEq/L Normal 4.0-15.0 [facility] Comment on above: Performed By: #### C BC, BMP, GFR, GURMEET SIDDIQUI MDW ####[address] [address] Glucose [Mass/Vol] 78 mg/dL Normal 70-110 [facility] Comment on above: Performed By: #### C BC, BMP, GFR, ADGURMEET CHOUDHURY MDW ####[address] [address] Potassium [Moles/Vol] 3.8 mmol/L Normal 3.5-5.0 [facility] Comment on above: Performed By: #### C BC, BMP, GFR, GURMEET SIDDIQUI MDW ####[place] [address] Sodium [Moles/Vol] 141 mmol/L Normal 136-145 [facility] Comment on above: Performed By: #### C BC, BMP, GFR, GURMEET SIDDIQUI MDW ####[place] [address] Urea nitrogen [Mass/Vol] 12.0 mg/dL Normal 8.0-22.0 [facility] Comment on above: Performed By: #### C BC, BMP, GFR, GURMEET SIDDIQUI MDW ####[place] [address] CBCon 04-04-2025 Erythrocyte distribution width (RBC) [Ratio] 15.6 % High 11.5-15.5 [facility] Comment on above: Performed By: #### C BC, BMP, GFR, GURMEET SIDDIQUI MDW ####[place] [address] Hematocrit (Bld) [Volume fraction] 45.3 % Normal 34.0-46.0 [facility] Comment on above: Performed By: #### C BC, BMP, GFR, GURMEET SIDDIQUI MDW ####[place] [address] Hgb 15.1 G/dL Normal 12.0-16.0 [facility] Comment on above: Performed By: #### C BC, BMP, GFR, GURMEET SIDDIQUI MDW ####[place] [address] MCH (RBC) [Entitic mass] 32.1 pg Normal 27.0-33.0 [facility] Comment on above: Performed By: #### C BC, BMP, GFR, GURMEET SIDDIQUI MDW ####[place] [address] MCHC 33.3 G/dL Normal 32.0-36.0 [facility] Comment on above: Performed By: #### C BC, BMP, GFRCHEN ANEU, MDW ####[place] [address] MCV (RBC) [Entitic vol] 96.4 fL Normal 80.0-99.0 [facility] Comment on above: Performed By: #### C BC BMP, GFRCHEN ANEU, MDW ####[place] [address] Platelet 381 10 3/mcL Normal 150-450 [facility] Comment on above: Performed By: #### C BC BMP, GFRCHEN ANEU, MDW ####[place] [address] Platelet mean volume (Bld) [Entitic vol] 7.8 fL Normal 6.6-10.5 [facility] Comment on above: Performed By: #### C BC, BMP, GFRCHEN ANEU, MDW ####[place] [address] RBC 4.70 10 6/mcL Normal 4.10-5.30 [facility] Comment on above: Performed By: #### C BC, BMP, GFRCHEN ANEU, MDW ####[place] [address] WBC 11.5 10 3/mcL High 4.5-10.8 [facility] Comment on above: Performed By: #### C BC, BMP, GFRCHEN ANEU, MDW ####[place] [address] CT ABDOMEN/PELVIS W/O CONTRA STon 04-04-2025 CT ABDOMEN/PELVIS W/O CONTRAST ORIGINAL EXAMINATION: CT OF THE ABDOMEN AND PELVIS WITHOUT CONTRAST04/04/2025 3:44 pm TECHNIQUE: CT of the abdomen and pelvis was performed without the administration of intravenous contrast. Multiplanar reformatted images are provided for review. Automated exposure control, iterative reconstruction, and/or weight based adjustment of the mA/kV was utilized to reduce the radiation dose to as low as reasonably achievable. COMPARISON: 03/15/2025 HISTORY: ORDERING SYSTEM PROVIDED HISTORY: Reason for Exam: nephrostomy tube, needs changed next week BILATERAL flank pain. FINDINGS: No aggressive osseous lesions. The heart is not enlarged. The lungs are clear. The liver, spleen, pancreas, and adrenal glands are normal. Left kidney atrophy similar to prior. Percutaneous left nephrostomy tube in place in similar position to prior. Multiple punctate calcifications within the distal left ureter. Mild left hydroureter similar to prior. The right kidney is unremarkable. The bladder is grossly normal. The colon, small bowel, and appendix are normal. The aorta is normal in caliber. No lymphadenopathy. No free fluid or free air. IMPRESSION: 1. Multiple left-sided ureteral stones in the middle and distal ureter measuring up to 3 mm. 2. Mild left hydroureter similar prior. 3. Similar position of left nephrostomy tube. I have personally reviewed the images of this examination and agree with the resident's findings and interpretation. Interpreted by: Clotilde Sethi MD Preliminary Report By: Noemi Salgado MD Electronically signed By Clotilde Sethi MD Dictated Date: 04/04/2025 3:54:29 PM Prelim Date: 04/04/2025 4:10:13 PM Sign Date: 04/04/2025 4:10:13 PM Ordering Provider: GUCCI Aragon [facility] 04-04-2025 Color (U) Yellow Normal [facility] Comment on above: Order Comment: To be taken from nephrostomy Performed By: #### U AMIC, UA ####[facility] [place] [id number] Glucose (U) [Mass/Vol] Negative Normal Negative [facility] Comment on above: Order Comment: To be taken from nephrostomy Performed By: #### U AMIC, UA ####[facility] [place] [address] Ketones Ql (U) Negative Normal Neg-Trace [facility] Comment on above: Order Comment: To be taken from nephrostomy Performed By: #### U AMIC, UA ####[facility] [place] [id number] UA Appear Cloudy Abnormal Clear [facility] Comment on above: Order Comment: To be taken from nephrostomy Performed By: #### U AMIC, UA ####[facility] [place] [address] UA Blood Moderate Abnormal Neg-Trace [facility] Comment on above: Order Comment: To be taken from nephrostomy Performed By: #### U AMIC, UA ####[place] [id number] [address] [place] [address] UA Leuk Est Large Abnormal Negative [facility] [facility] Comment on above: Order Comment: To be taken from nephrostomy Performed By: #### U AMIC, UA ####[place] [address] UA Nitrite Negative Normal Negative [facility] Comment on above: Order Comment: To be taken from nephrostomy Performed By: #### U AMIC, UA ####[place] [address] UA pH >=8.5 Abnormal 5.0 - 8.0 [facility] Comment on above: Order Comment: To be taken from nephrostomy Performed By: #### U AMIC, UA ####[place] [address] UA Protein 100 mg/dL Abnormal Negative [facility] Comment on above: Order Comment: To be taken from nephrostomy Performed By: #### U AMIC, UA ####[place] [address] UA Spec Grav 1.010 Normal 1.006-1.029 [facility] Comment on above: Order Comment: To be taken from nephrostomy Performed By: #### U AMIC, UA ####[place] [address] UA Specimen Type Not Given Normal [facility] Comment on above: Order Comment: To be taken from nephrostomy Performed By: #### U AMIC, UA ####[place] [address] UA Urobilinogen 0.2 E.U./dL Normal 0.2-1.0 [facility] Comment on above: Order Comment: To be taken from nephrostomy Performed By: #### U AMIC, UA ####[address] [place] [address] Urobilinogen (U) [Mass/Vol] Negative Normal Neg-Trace [facility] Comment on above: Order Comment: To be taken from nephrostomy Performed By: #### U AMIC, UA ####[facility] [place] [address] Color (U) Yellow Normal [facility] Comment on above: Performed By: #### U A ####[place] [address] Glucose (U) [Mass/Vol] Negative Normal Negative [facility] Comment on above: Performed By: #### U A ####[place] [address] Ketones Ql (U) Negative Normal Neg-Trace [facility] Comment on above: Performed By: #### U A ####[place] [address] UA Appear Clear Normal Clear [facility] Comment on above: Performed By: #### U A ####[place] [address] UA Blood Negative Normal Neg-Trace [facility] Comment on above: Performed By: #### U A ####[place] [address] UA Leuk Est Trace Normal Negative [facility] Comment on above: Performed By: #### U A ####[place] [address] UA Nitrite Negative Normal Negative [facility] Comment on above: Performed By: #### U A ####[place] [address] UA pH 6.5 Normal 5.0 - 8.0 [facility] Comment on above: Performed By: #### U A ####[place] [address] UA Protein Negative Normal Negative [facility] Comment on above: Performed By: #### U A ####[place] [address] UA Spec Grav 1.015 Normal 1.006-1.029 [facility] Comment on above: Performed By: #### U A ####[place] [address] UA Specimen Type Clean Catch Normal [facility] Comment on above: Performed By: #### U A ####[place] [address] UA Urobilinogen 0.2 E.U./dL Normal 0.2-1.0 [facility] Comment on above: Performed By: #### U A ####[place] [address] Urobilinogen (U) [Mass/Vol] Negative Normal Neg-Trace [facility] Comment on above: Performed By: #### U A ####[place] [address] UAMICon 04-04-2025 UA Bacteria 2+ /hpf Abnormal Negative [facility] Comment on above: Performed By: #### U AMIC, UA ####[place] [address] UA RBC 10-20 Abnormal 0-2 [facility] Comment on above: Performed By: #### U AMIC, UA ####[place] [address] UA Squam Epithelial 3-5 Normal 0-20 [facility] Comment on above: Performed By: #### U AMIC, UA ####[place] [address] UA Trip Rai Crystals 3+ /hpf Normal [facility] Comment on above: Performed By: #### U AMIC, UA ####[place] [address] UA WBC 10-20 Abnormal 0-5 [facility] Comment on above: Performed By: #### U AMIC, UA ####[place] [address] CBC + DIFFon 04-03-2025 Baso # 0.04 x10EE3/UL Normal 0.00 - 0.10 [facility] Comment on above: Performed By: #### 2 21207 ####[facility],[address] [place] [address] 98620 Basophils/100 WBC (Bld) 0.4 % Normal 0.0 - 2.0 [facility] Comment on above: Performed By: #### 2 89722 ####[facility],[address] [place] [address] CBC + DIFF Normal [facility] Comment on above: Result Comment: CBC- COMPLETE BLOOD COUNT Performed By: #### 2 64199 ####[facility],[address] [place] [address] EO # 0.16 x10EE3/UL Normal 0.00 - 0.50 [facility] Comment on above: Performed By: #### 2 98033 ####[facility],[address] [place] [address] Eosinophils/100 WBC (Bld) 1.6 % Normal 0.0 - 7.0 [facility] Comment on above: Performed By: #### 2 91980 ####[facility],[address] [place] [address] Erythrocyte distribution width (RBC) [Ratio] 13.9 % Normal 12.0 - 15.6 [facility] Comment on above: Performed By: #### 2 03009 ####[facility],[address] [place] [address] Hematocrit (Bld) [Volume fraction] 39.2 % Normal 34.0 - 46.0 [facility] Comment on above: Performed By: #### 2 32932 ####[facility],[address] [place], [place] [address] Hemoglobin (Bld) [Mass/Vol] 13.7 g/dL Normal 12.0 - 16.0 [facility] Comment on above: Performed By: #### 2 66982 ####[facility],[address] [place] [address] Lymph # 2.51 x10EE3/UL Normal 0.80 - 2.80 [facility] Comment on above: Performed By: #### 2 75327 ####[facility],[address] [place] [address] 48705 Lymphocytes/100 WBC (Bld) 24.6 % Normal 20.0 - 45.0 [facility] Comment on above: Performed By: #### 2 75096 ####[facility],[address] [place] [address] 48255 MANUAL DIFF N/A Normal [facility] Comment on above: Performed By: #### 2 80297 ####[facility],[address] [place] [address] 76851 MCH (RBC) [Entitic mass] 33 pg Normal 27 - 33 [facility] Comment on above: Performed By: #### 2 97745 ####[facility],[address] [place] [address] MCHC 35 X10 3 Normal 32 - 36 [facility] Comment on above: Performed By: #### 2 58964 ####[facility],[address] [place] [address] 73795 MCV (RBC) [Entitic vol] 95 fL Normal 80 - 99 [facility] Comment on above: Performed By: #### 2 28908 ####[facility],[address] [place] [address] 25626 Throckmort[place] # 0.91 x10EE3/UL Normal 0.20 - 1.00 [facility] Comment on above: Performed By: #### 2 64140 ####[facility],[address] [place] [address] 68957 MONOS % 8.9 % Normal 0.0 - 10.0 [facility] Comment on above: Performed By: #### 2 09679 ####[facility],[address] [place] [address] 27957 Morphology Efra (Bld) [Interp] N/A Normal [facility] Comment on above: Performed By: #### 2 97510 ####[facility],[address] [place] [address] 56771 Neut # 6.59 x10EE3/UL Normal 1.50 - 7.10 [facility] Comment on above: Performed By: #### 2 65555 ####[facility],[address] [place] [address] 01704 Neutrophils/100 WBC (Bld) 64.6 % Normal 46.0 - 76.0 [facility] Comment on above: Performed By: #### 2 63825 ####[facility],[address] [place] [address] 60795 PLATELET 361 x10EE3/UL Normal 150 - 450 [facility] Comment on above: Performed By: #### 2 88552 ####[facility],[address] [place] [address] 03284 Platelet mean volume (Bld) [Entitic vol] 7.1 fL Normal 6.6 - 10.5 [facility] Comment on above: Result Comment: AUTO MATED DIFFERENTIAL Performed By: #### 2 58573 ####[facility],[address] [place] [address] 13934 RBC 4.13 x 10EE6/UL Normal 4.10 - 5.30 [facility] Comment on above: Performed By: #### 2 98193 ####[facility],[address] [place] [address] 26698 WBC 10.2 x 10EE3/UL Normal 4.5 - 10.8 [facility] Comment on above: Performed By: #### 2 59511 ####[facility],[address] [place] [address] 48000 CMP with eGFRon 04-03-2025 AGE 34 years Normal [facility] Comment on above: Performed By: #### 2 73606 ####[facility],[address] [place] [address] 82976 Albumin [Mass/Vol] 3.8 g/dL Normal 3.4 - 5.0 [facility] Comment on above: Performed By: #### 2 86824 ####[facility],[address] [place] [address] 82313 Albumin/Globulin [Mass ratio] 1.1 {ratio} Normal 0.9 - 1.6 [facility] Comment on above: Performed By: #### 2 46001 ####[facility],[address] [place] [address] 14490 ALK PHOS 85 U/L Normal 46 - 116 [facility] Comment on above: Performed By: #### 2 48602 ####[facility],[address] [place] [address] 95430 ALT [Catalytic activity/Vol] 14 U/L Low 16 - 63 [facility] Comment on above: Performed By: #### 2 09800 ####[facility],[address] [place] [address] 10287 Anion gap [Moles/Vol] 13 mmol/L Normal 10 - 20 [facility] Comment on above: Performed By: #### 2 48490 ####[facility],[address] [place] [address] 49172 AST [Catalytic activity/Vol] 18 U/L Normal 13 - 39 [facility] Comment on above: Performed By: #### 2 21935 ####[facility],[address] [place] [address] 62992 B/C RATIO 14 ratio Normal 0 - 30 [facility] Comment on above: Performed By: #### 2 35308 ####[facility],[address] [place] [address] 39607 Bilirubin [Mass/Vol] 0.4 mg/dL Normal 0.2 - 1.0 [facility] Comment on above: Performed By: #### 2 84033 ####[facility],[address] [place] [address] 83336 Calcium [Mass/Vol] 9.2 mg/dL Normal 8.5 - 10.1 [facility] Comment on above: Performed By: #### 2 45555 ####[facility],[address] [place] [address] Chloride [Moles/Vol] 103 mmol/L Normal 98 - 107 [facility] Comment on above: Performed By: #### 2 99824 ####[facility],[address] [place] [address] CMP with eGFR Normal [facility] Comment on above: Result Comment: COMP REHENSIVE METABOLIC PANEL Performed By: #### 2 00603 ####[place] [address] CO2 [Moles/Vol] 25.0 mmol/L Normal 21.0 - 32.0 [facility] Comment on above: Performed By: #### 2 70280 ####[place] [address] Creatinine [Mass/Vol] 0.95 mg/dL Normal 0.55 - 1.02 [facility] Comment on above: Performed By: #### 2 59122 ####[place] [address] GFR/1.73 sq M.predicted among non-blacks MDRD (S/P/Bld) [Vol rate/Area] mL/min/{1.73_m2} Normal 60 - 999 [facility] Comment on above: Performed By: #### 2 42582 ####[place] [address] Result Comment: ACCO RDING TO THE NATIONAL KIDNEY DISEASE EDUCATION PROGRAM(NKDE), A NORMAL eGFRIS A VALUE GREATER THAN OR EQUAL TO 60 ML/MIN/1.73 SQ METERS.CHRONIC KIDNEY DISEASE: <60mL/MIN/1.73 SQ METERSKIDNEY FAILURE: <15mL/MIN/1.73 SQ METERSTHIS TEST SHOULD ONLY BE USED FOR PATIENTS 18 YEARS OF AGE AND OLDER. Globulin (S) [Mass/Vol] 3.5 g/dL Normal 1.5 - 3.8 [facility] Comment on above: Performed By: #### 2 05168 ####[facility],[address] [place] [address] 94798 Glucose [Mass/Vol] 78 mg/dL Normal 74 - 106 [facility] Comment on above: Performed By: #### 2 43530 ####[facility],[address] [place] [address] 01421 Potassium [Moles/Vol] 4.0 mmol/L Normal 3.5 - 5.1 [facility] Comment on above: Performed By: #### 2 23719 ####[facility],[address] [place] [address] 85398 Protein [Mass/Vol] 7.3 g/dL Normal 6.4 - 8.2 [facility] Comment on above: Performed By: #### 2 68135 ####[facility],[address] [place] [address] 92968 Sodium [Moles/Vol] 137 mmol/L Normal 136 - 145 [facility] Comment on above: Performed By: #### 2 86350 ####[facility],[address] [place] [address] 35998 Urea nitrogen [Mass/Vol] 13 mg/dL Normal 7 - 18 [facility] Comment on above: Performed By: #### 2 93247 ####[facility],[address] [place] [address] ABDOMEN/PELVIS WOon 04-03 CT ABDOMEN/PELVIS WO Normal [facility] ED MED ADMINISTRATION DETAIL on 04-03-2025 ED MED ADMINISTRATION DETAIL Normal [facility] ED NURSES CLINICAL NOTEon ED NURSES CLINICAL NOTE Normal [facility] ED ORDER SHEET (CPOE ONLY)on 04-03-2025 ED ORDER SHEET (CPOE ONLY) Normal [facility] ED PHYSICIAN CLINICAL REPORT on 04-03-2025 ED PHYSICIAN CLINICAL REPORT Normal [facility] ED SUPER BILLon 04-03-2025 ED SUPER BILL Normal [facility] ED VISIT SUMMARYon ED VISIT SUMMARY Normal [facility] ED VITALS FLOW SHEETon 04-03 ED VITALS FLOW SHEET Normal [facility] LACTATEon 04-03-2025 Lactate [Moles/Vol] 0.7 mmol/L Normal 0.4 - 2.0 [facility] Comment on above: Performed By: #### 2 13384 ####[facility],[address] [place] [address] 00715 LIPASEon 04-03-2025 Lipase [Catalytic activity/Vol] 36.0 U/L Normal 15.0 - 78.0 [facility] Comment on above: Result Comment: *PLE ASE NOTE THAT RANGES FOR LIPASE HAVE CHANGED OF 10/31/23 DUE TO AN ASSAYUPDATE BY THE ASSOCIATE DIRECTOR FINANCIAL AID.THE NEW ASSAY RANGE IS 6-250 U/L, WITH A REFERENCERANGE OF 16-77 U/L. Performed By: #### 2 92963 ####[facility],[address] [place] [address] 17823 URINALYSISon 04-03-2025 Bilirubin Ql (U) Negative Normal NORMAL: NEGATIVE [facility] Comment on above: Performed By: #### 2 27531 ####[facility],[address] [place] [address] 00028 Clarity (U) clear Normal NORMAL: CLEAR [facility] Comment on above: Performed By: #### 2 89298 ####[facility],[address] [place] [address] 46588 Color (U) yellow Normal NORMAL: YELLOW [facility] Comment on above: Performed By: #### 2 55665 ####[facility],[address] [place] [address] 10402 Glucose Ql (U) NORM Normal NORMAL: NORMAL [facility] Comment on above: Performed By: #### 2 37063 ####[address],[place] [address] Hemoglobin Ql (U) Negative Normal NORMAL: NEGATIVE [facility] Comment on above: Performed By: #### 2 08606 ####[facility],[address] [place] [address] 81577 Ketone Negative Normal NORMAL: NEGATIVE [facility] Comment on above: Performed By: #### 2 44668 ####[facility],[address] [place] [address] 73822 Leukocytes Negative Normal NORMAL: NEGATIVE [facility] Comment on above: Performed By: #### 2 70656 ####[facility],[address] [place] [address] 03623 Nitrite Ql (U) Negative Normal NORMAL: NEGATIVE [facility] Comment on above: Performed By: #### 2 86660 ####[facility],[address] [place], [place] [address] pH (U) 7 [pH] Normal NORMAL: 5.0-8.0 [facility] Comment on above: Performed By: #### 2 77516 ####[facility],[address] [place] [address] 51251 Protein Ql (U) Negative Normal NORMAL: NEGATIVE [facility] Comment on above: Performed By: #### 2 45634 ####[facility],[address] [place] [address] 86621 Sp [place] 1.010 Normal NORMAL: 1.010-1.030 [facility] Comment on above: Performed By: #### 2 55584 ####[facility],[address] [place] [address] 68739 Specimen Type R Normal [facility] Comment on above: Performed By: #### 2 99190 ####[facility],[address] [place] [address] 12998 Urinalysis dipstick W Reflex Microscopic panel (U) NOT INDICATED Normal [facility] Comment on above: Performed By: #### 2 55587 ####[facility],[address] [place] [address] 84388 Urobilinog NORM Normal NORMAL: NORMAL [facility] Comment on above: Performed By: #### 2 89733 ####[facility],[address] [place] [address] 92988 CBC + DIFFon 04-01-2025 Baso # 0.05 x10EE3/UL Normal 0.00 - 0.10 [facility] Comment on above: Performed By: #### 2 08586 ####[facility],[address] [place] [address] 51771 Basophils/100 WBC (Bld) 0.5 % Normal 0.0 - 2.0 [facility] Comment on above: Performed By: #### 2 06952 ####[facility],[address] [place] [address] 74788 CBC + DIFF Normal [facility] Comment on above: Result Comment: CBC- COMPLETE BLOOD COUNT Performed By: #### 2 72379 ####[facility],[address] [place] [address] 00135 EO # 0.24 x10EE3/UL Normal 0.00 - 0.50 [facility] Comment on above: Performed By: #### 2 03763 ####[facility],[address] [place] [address] 69628 Eosinophils/100 WBC (Bld) 2.1 % Normal 0.0 - 7.0 [facility] Comment on above: Performed By: #### 2 70285 ####[facility],[address] [place] [address] 62270 Erythrocyte distribution width (RBC) [Ratio] 13.9 % Normal 12.0 - 15.6 [facility] Comment on above: Performed By: #### 2 85877 ####[facility],[address] [place] [address] 95916 Hematocrit (Bld) [Volume fraction] 40.5 % Normal 34.0 - 46.0 [facility] Comment on above: Performed By: #### 2 39454 ####[facility],[address] [place] [address] Hemoglobin (Bld) [Mass/Vol] 14.3 g/dL Normal 12.0 - 16.0 [facility] Comment on above: Performed By: #### 2 68828 ####[facility],[address] [place] [address] Lymph # 2.89 x10EE3/UL High 0.80 - 2.80 [facility] Comment on above: Performed By: #### 2 55568 ####[facility],[address] [place] [address] Lymphocytes/100 WBC (Bld) 25.5 % Normal 20.0 - 45.0 [facility] Comment on above: Performed By: #### 2 44009 ####[facility],[address] [place] [address] MANUAL DIFF N/A Normal [facility] Comment on above: Performed By: #### 2 46381 ####[facility],[address] [place] [address] MCH (RBC) [Entitic mass] 34 pg High 27 - 33 [facility] Comment on above: Performed By: #### 2 62546 ####[facility],[address] [place] [address] 51716 MCHC 35 X10 3 Normal 32 - 36 [facility] Comment on above: Performed By: #### 2 74377 ####[facility],[address] [place] [address] 45027 MCV (RBC) [Entitic vol] 97 fL Normal 80 - 99 [facility] Comment on above: Performed By: #### 2 90193 ####[facility],[address] [place] [address] 94830 Throckmort[place] # 0.95 x10EE3/UL Normal 0.20 - 1.00 [facility] Comment on above: Performed By: #### 2 87517 ####[facility],[address] [place] [address] 00693 MONOS % 8.4 % Normal 0.0 - 10.0 [facility] Comment on above: Performed By: #### 2 13738 ####[facility],[address] [place] [address] 16003 Morphology Efra (Bld) [Interp] N/A Normal [facility] Comment on above: Performed By: #### 2 05044 ####[facility],[address] [place] [address] 63184 Neut # 7.19 x10EE3/UL High 1.50 - 7.10 [facility] Comment on above: Performed By: #### 2 35827 ####[address] [address] Neutrophils/100 WBC (Bld) 63.5 % Normal 46.0 - 76.0 [facility] Comment on above: Performed By: #### 2 94136 ####[facility],[address] [place] [address] 73532 PLATELET 406 x10EE3/UL Normal 150 - 450 [facility] Comment on above: Performed By: #### 2 72765 ####[facility],[address] [place] [address] 01364 Platelet mean volume (Bld) [Entitic vol] 7.2 fL Normal 6.6 - 10.5 [facility] Comment on above: Result Comment: AUTO MATED DIFFERENTIAL Performed By: #### 2 43124 ####[facility],[address] [place] [address] 29329 RBC 4.20 x 10EE6/UL Normal 4.10 - 5.30 [facility] Comment on above: Performed By: #### 2 40970 ####[facility],[address] [place] [address] 44165 WBC 11.3 x 10EE3/UL High 4.5 - 10.8 [facility] Comment on above: Performed By: #### 2 18637 ####[facility],[address] [place] [address] 09834 CMP with eGFRon 04-01-2025 AGE 34 years Normal [facility] Comment on above: Performed By: #### 2 96558 ####[facility],[address] [place] [address] 78425 Albumin [Mass/Vol] 3.6 g/dL Normal 3.4 - 5.0 [facility] Comment on above: Performed By: #### 2 58312 ####[facility],[address] [place], [place] [address] Albumin/Globulin [Mass ratio] 1.1 {ratio} Normal 0.9 - 1.6 [facility] Comment on above: Performed By: #### 2 14478 ####[facility],[address] [place], [place] [address] ALK PHOS 79 U/L Normal 46 - 116 [facility] Comment on above: Performed By: #### 2 24947 ####[facility],[address] [place] [address] 50356 ALT [Catalytic activity/Vol] 16 U/L Normal 16 - 63 [facility] Comment on above: Performed By: #### 2 26974 ####[facility],[address] [place] [address] 16431 Anion gap [Moles/Vol] 14 mmol/L Normal 10 - 20 [facility] Comment on above: Performed By: #### 2 72876 ####[address] [address] AST [Catalytic activity/Vol] 16 U/L Normal 13 - 39 [facility] Comment on above: Performed By: #### 2 16012 ####[facility],[address] [place] [address]3765 B/C RATIO 11 ratio Normal 0 - 30 [facility] Comment on above: Performed By: #### 2 28235 ####[facility],[address] [place], [place] [address] Bilirubin [Mass/Vol] 0.3 mg/dL Normal 0.2 - 1.0 [facility] Comment on above: Performed By: #### 2 51195 ####[facility],[address] [place] [address] Calcium [Mass/Vol] 8.9 mg/dL Normal 8.5 - 10.1 [facility] Comment on above: Performed By: #### 2 96812 ####[facility],[address] [place] [address] Chloride [Moles/Vol] 105 mmol/L Normal 98 - 107 [facility] Comment on above: Performed By: #### 2 51845 ####[facility],[address] [place] [address] CMP with eGFR Normal [facility] Comment on above: Result Comment: COMP REHENSIVE METABOLIC PANEL Performed By: #### 2 90733 ####[place] [address] CO2 [Moles/Vol] 26.8 mmol/L Normal 21.0 - 32.0 [facility] Comment on above: Performed By: #### 2 15892 ####[facility],[address] [place], [place] [address] Creatinine [Mass/Vol] 1.04 mg/dL High 0.55 - 1.02 [facility] Comment on above: Performed By: #### 2 06588 ####[place] [id number] eGFR 60 ML/MINUTE Normal 60 - 999 [facility] Comment on above: Performed By: #### 2 85738 ####[facility],[address] [place] [address] 92797 GFR/1.73 sq M.predicted among non-blacks MDRD (S/P/Bld) [Vol rate/Area] mL/min/{1.73_m2} Normal 60 - 999 [facility] Comment on above: Result Comment: ACCO RDING TO THE NATIONAL KIDNEY DISEASE EDUCATION PROGRAM(NKDE), A NORMAL eGFRIS A VALUE GREATER THAN OR EQUAL TO 60 ML/MIN/1.73 SQ METERS.CHRONIC KIDNEY DISEASE: <60mL/MIN/1.73 SQ METERSKIDNEY FAILURE: <15mL/MIN/1.73 SQ METERSTHIS TEST SHOULD ONLY BE USED FOR PATIENTS 18 YEARS OF AGE AND OLDER. Performed By: #### 2 25628 ####[address] [address] Globulin (S) [Mass/Vol] 3.2 g/dL Normal 1.5 - 3.8 [facility] Comment on above: Performed By: #### 2 66170 ####[address] [address] Glucose [Mass/Vol] 91 mg/dL Normal 74 - 106 [facility] Comment on above: Performed By: #### 2 68426 ####[address] [address] Potassium [Moles/Vol] 4.1 mmol/L Normal 3.5 - 5.1 [facility] Comment on above: Performed By: #### 2 66837 ####[address] [address] Protein [Mass/Vol] 6.8 g/dL Normal 6.4 - 8.2 [facility] Comment on above: Performed By: #### 2 32144 ####[address] [address] Sodium [Moles/Vol] 142 mmol/L Normal 136 - 145 [facility] Comment on above: Performed By: #### 2 53292 ####[address] [address] Urea nitrogen [Mass/Vol] 11 mg/dL Normal 7 - 18 [facility] Comment on above: Performed By: #### 2 21423 ####[facility],[address] [place] [address] CORONAVIRUS (SARS) ANTIGEN T ESTon 04-01-2025 EXTERNAL QC DONE? YES Normal [facility] Comment on above: Performed By: #### 2 24003 ####[facility],[address] [place] [address] INTERNAL CONTROL PASS Normal [facility] Comment on above: Performed By: #### 2 52178 ####[facility],[address] [place] [address] SARS ANTIGEN Negative Normal NORMAL: NEGATIVE [facility] Comment on above: Performed By: #### 2 23240 ####[facility],[address] [place] [address] SEND TO ? NO Normal [facility] Comment on above: Result Comment: SARS -CoV-2THIS TEST IS BEING USED UNDER THE FDA EUA PROCEDURE. THIS ASSAY HAS BEENVALIDATED AT [facility] FOR USE WITH NASAL AND NASOPHARYNGEAL SWABSPECIMENS.INTERPRETIVE DATATEST RESULTS SHOULD ALWAYS BE CONSIDERED IN THE CONTEXT OF CLINICALOBSERVATIONS AND EPIDEMIOLOGICAL DATA IN MAKING FINAL DIAGNOSIS AND PATIENTMANAGEMENT DECISIONS. PATIENT MANAGEMENT SHOULD FOLLOW CURRENT CDC GUIDELINES.THE KRISTEN SARS ANTIGEN MAYNOR DOES NOT DIFFERENTIATE BETWEEN SARS-CoV & SARS-CoV-2.A POSITIVE TEST RESULT INDICATES THE PRESENCE OF SARS-CoV-2 NUCLEOCAPSID PROTEINANTIGEN, AND THE PATIENT IS INFECTED WITH THE VIRUS AND PRESUMED TO BECONTAGIOUS.A NEGATIVE TEST RESULT FOR THIS TEST MEANS THAT SARS-CoV-2 NUCLEOCAPSID PROTEINANTIGEN WAS NOT PRESENT IN THE SPECIMEN ABOVE THE LIMIT OF DETECTION. HOWEVER, ANEGATIVE RESULT DOES NOT RULE OUT COVID-19 AND SHOULD NOT BE USED THE SOLEBASIS FOR TREATMENT OR PATIENT MANAGEMENT DECISIONS. A NEGATIVE RESULT DOES NOTEXCLUDE THE POSSIBILITY OF COVID-19. NEGATIVE RESULTS, FROM PATIENTS WITHSYMPTOM ONSET BEYOND FIVE DAYS, SHOULD BE TREATED PRESUMPTIVE ANDCONFIRMATION WITH A MOLECULAR ASSAY, IF NECESSARY, FOR PATIENT MANAGEMENT, MAYBE PERFORMED.WHEN DIAGNOSTIC TESTING IS NEGATIVE, THE POSSIBLILTY OF A FALSE NEGATIVE RESULTSHOULD BE CONSIDERED IN THE CONTEXT OF A PATIENT'S RECENT EXPOSURES AND THEPRESENCE OF CLINICAL SIGNS AND SYMPTOMS CONSISTENT WITH COVID-19. THEPOSSIBILITY OF A FALSE NEGATIVE RESULT SHOULD ESPECIALLY BE CONSIDERED IF THEPATIENT'S RECENT EXPOSURES OR CLINICAL PRESENTATION INDICATE THAT COVID-19 ISLIKELY, AND DIAGNOSTIC TESTS FOR OTHER CAUSES OF ILLNESS (e.g., OTHERRESPIRATORY ILLNESS) ARE NEGATIVE. IF COVID-19 IS STILL SUSPECTED BASED ONEXPOSURE HISTORY TOGETHER WITH OTHER CLINICAL FINDINGS, RE-TESTING SHOULD BECONSIDERED BY HEALTHCARE PROVIDERS IN CONSULTATION WITH [facility]. Performed By: #### 2 84267 ####[facility],[address] [place] [address] ED MED ADMINISTRATION DETAIL on 04-01-2025 ED MED ADMINISTRATION DETAIL Normal [facility] ED NURSES CLINICAL NOTEon ED NURSES CLINICAL NOTE Normal [facility] ED ORDER SHEET (CPOE ONLY)on 04-01-2025 ED ORDER SHEET (CPOE ONLY) Normal [facility] ED PHYSICIAN CLINICAL REPORT on 04-01-2025 ED PHYSICIAN CLINICAL REPORT Normal [facility] ED SUPER BILLon 04-01-2025 ED SUPER BILL Normal [facility] ED VISIT SUMMARYon ED VISIT SUMMARY Normal [facility] ED VITALS FLOW SHEETon 04-01 ED VITALS FLOW SHEET Normal [facility] INFLUENZA VIRUS RAPID A/Bon 04-01-2025 INFLUENZA VIRUS RAPID A/B Normal [facility] Comment on above: Performed By: #### 2 17257 ####[facility],[address] [place] [address] LACTATEon 04-01-2025 Lactate [Moles/Vol] 1.7 mmol/L Normal 0.4 - 2.0 [facility] Comment on above: Performed By: #### 2 31046 ####[facility],[address] [place] [address] LIPASEon 04-01-2025 Lipase [Catalytic activity/Vol] 169.0 U/L High 15.0 - 78.0 [facility] Comment on above: Result Comment: *PLE ASE NOTE THAT RANGES FOR LIPASE HAVE CHANGED OF 10/31/23 DUE TO AN ASSAYUPDATE BY THE ASSOCIATE DIRECTOR FINANCIAL AID.THE NEW ASSAY RANGE IS 6-250 U/L, WITH A REFERENCERANGE OF 16-77 U/L. Performed By: #### 2 90991 ####[facility],[address] [place] [address] SERUM QUALon 04-01 EXTERNAL QC DONE? YES Normal [facility] Comment on above: Performed By: #### 2 24103 ####[facility],[address] [place] [address] INTERNAL QC PASS Normal [facility] Comment on above: Performed By: #### 2 19012 ####[facility],[address] [place] [address] SER Negative Normal NEGATIVE [facility] Comment on above: Performed By: #### 2 05389 ####[facility],[address] [place] [address] TROPONINon 04-01-2025 HS TROPONIN 4.1 pg/mL Normal 0.0 - 51.4 [facility] Comment on above: Performed By: #### 2 42135 ####[facility],[address] [place] [address] URINALYSISon 04-01-2025 Amorphous NONE Normal [facility] Comment on above: Performed By: #### 2 02457 ####[facility],[address] [place] [address] Bacteria NONE Normal [facility] Comment on above: Performed By: #### 2 97349 ####[facility],[address] [place] [address] Bilirubin Ql (U) Negative Normal NORMAL: NEGATIVE [facility] Comment on above: Performed By: #### 2 76811 ####[facility],[address] [place] [address]60[address] Casts NONE Normal [facility] Comment on above: Performed By: #### 2 56623 ####[facility],[address] [place] [address] Clarity (U) clear Normal NORMAL: CLEAR [facility] Comment on above: Performed By: #### 2 82161 ####[facility],[address] [place] [address] Color (U) yellow Normal NORMAL: YELLOW [facility] Comment on above: Performed By: #### 2 50638 ####[facility],[address] [place], [place] [phone] Crystals LM Nom (Urine sed) NONE Normal [facility] Comment on above: Performed By: #### 2 30068 ####[facility],[address] [place] [address] 48070 Epi Cells OCC Normal [facility] Comment on above: Performed By: #### 2 88911 ####[facility],[address] [place] [address] Glucose Ql (U) NORM Normal NORMAL: NORMAL [facility] Comment on above: Performed By: #### 2 49031 ####[facility],[address] [place] [address] Hemoglobin Ql (U) 10 Abnormal NORMAL: NEGATIVE [facility] Comment on above: Performed By: #### 2 15720 ####[facility],[address] [place] [address] Ketone Negative Normal NORMAL: NEGATIVE [facility] Comment on above: Performed By: #### 2 80680 ####[facility],[address] [place] [address]2858 Leukocytes 25 Abnormal NORMAL: NEGATIVE [facility] Comment on above: Performed By: #### 2 92947 ####[facility],[address] [place] [address] Mucous NONE Normal [facility] Comment on above: Performed By: #### 2 28188 ####[facility],[address] [place] [address] Nitrite Ql (U) Negative Normal NORMAL: NEGATIVE [facility] Comment on above: Performed By: #### 2 51839 ####[facility],[address] [place] [address] pH (U) 6.5 [pH] Normal NORMAL: 5.0-8.0 [facility] Comment on above: Performed By: #### 2 92741 ####[facility],[address] [place] [address] Protein Ql (U) 15 Abnormal NORMAL: NEGATIVE [facility] Comment on above: Performed By: #### 2 64121 ####[facility],[address] [place] [address] Rbc NONE Normal 0-3/hpf [facility] Comment on above: Performed By: #### 2 23658 ####[facility],[address] [place] [address] Sp [place] 1.015 Normal NORMAL: 1.010-1.030 [facility] Comment on above: Performed By: #### 2 34860 ####[facility],[address] [place] [address] Specimen Type R Normal [facility] Comment on above: Performed By: #### 2 15911 ####[facility],[address] [place] [address] Urinalysis dipstick W Reflex Microscopic panel (U) SEE BELOW Normal [facility] Comment on above: Result Comment: MICR OSCOPIC Performed By: #### 2 22842 ####[facility],[address] [place] [address] Urobilinog NORM Normal NORMAL: NORMAL [facility] Comment on above: Performed By: #### 2 69579 ####[facility],[address] [place] [address] Wbc 1-5 Normal 0-5/hpf [facility] Comment on above: Performed By: #### 2 35867 ####[facility],[address] [place] [address],[facility] [address] Yeast NONE Normal [facility] Comment on above: Performed By: #### 2 98292 ####[facility],[address] [place] [address] URINE CULTURE [CCL]on 2024 Bacteria identified Cx Nom (U) Normal [facility] Comment on above: Performed By: #### 2 53624 ####[facility],[address] [place] [address] 59669 C-REACTIVE PROTEINon 025 CRP 0.15 mg/dl Normal 0.00 - 0.90 [facility] Comment on above: Performed By: #### 2 04369 ####[facility],[address] [place] [address] 17814 CBC + DIFFon 03-23-2025 Baso # 0.07 x10EE3/UL Normal 0.00 - 0.10 [facility] Comment on above: Performed By: #### 2 60833 ####[facility],[address] [place] [address] Basophils/100 WBC (Bld) 0.5 % Normal 0.0 - 2.0 [facility] Comment on above: Performed By: #### 2 47528 ####[facility],[address] [place] [address] 80329 CBC + DIFF Normal [facility] Comment on above: Result Comment: CBC- COMPLETE BLOOD COUNT Performed By: #### 2 49463 ####[facility],[address] [place] [address] 84827 CELL COUNT 100 Normal [facility] Comment on above: Performed By: #### 2 63787 ####[facility],[address] [place] [address] 13956 EO # 0.39 x10EE3/UL Normal 0.00 - 0.50 [facility] Comment on above: Performed By: #### 2 21348 ####[facility],[address] [place] [address] 33867 Eosinophils/100 WBC (Bld) 2.6 % Normal 0.0 - 7.0 [facility] Comment on above: Performed By: #### 2 66422 ####[facility],[address] [place] [address]74 Erythrocyte distribution width (RBC) [Ratio] 13.8 % Normal 12.0 - 15.6 [facility] Comment on above: Performed By: #### 2 07329 ####[facility],[address] [place] [address]5628 Hematocrit (Bld) [Volume fraction] 44.3 % Normal 34.0 - 46.0 [facility] Comment on above: Performed By: #### 2 42754 ####[facility],[address] [place] [address] 15825 Hemoglobin (Bld) [Mass/Vol] 15.4 g/dL Normal 12.0 - 16.0 [facility] Comment on above: Performed By: #### 2 46722 ####[facility],[address] [place] [address] Lymph # 5.14 x10EE3/UL High 0.80 - 2.80 [facility] Comment on above: Performed By: #### 2 52093 ####[facility],[address] [place] [address] 27849 Lymphocytes/100 WBC (Bld) 34.4 % Normal 20.0 - 45.0 [facility] Comment on above: Performed By: #### 2 68408 ####[facility],[address] [place] [address] 29785 Lymphocytes/100 WBC (Bld) 42 % Normal 20 - 45 [facility] Comment on above: Performed By: #### 2 78130 ####[facility],[address] [place] [address] MANUAL DIFF SEE BELOW Normal [facility] Comment on above: Performed By: #### 2 65918 ####[facility],[address] [place] [address] MCH (RBC) [Entitic mass] 34 pg High 27 - 33 [facility] Comment on above: Performed By: #### 2 69558 ####[facility],[address] [place] [address] MCHC 35 X10 3 Normal 32 - 36 [facility] Comment on above: Performed By: #### 2 11399 ####[facility],[address] [place] [address] MCV (RBC) [Entitic vol] 97 fL Normal 80 - 99 [facility] Comment on above: Performed By: #### 2 11436 ####[facility],[address] [place] [address] [place] # 1.37 x10EE3/UL High 0.20 - 1.00 [facility] Comment on above: Performed By: #### 2 56439 ####[facility],[address] [place] [address] 72591 MONOS 8 % Normal 0 - 10 [facility] Comment on above: Performed By: #### 2 54056 ####[facility],[address] [place] [address] 68751 MONOS % 9.2 % Normal 0.0 - 10.0 [facility] Comment on above: Performed By: #### 2 53556 ####[facility],[address] [place] [address] Morphology Efra (Bld) [Interp] SEE BELOW Normal [facility] Comment on above: Performed By: #### 2 21765 ####[facility],[address] [place] [address] 03898 Neut # 7.98 x10EE3/UL High 1.50 - 7.10 [facility] Comment on above: Performed By: #### 2 94977 ####[facility],[address] [place] [address] 90698 Neutrophils/100 WBC (Bld) 53.4 % Normal 46.0 - 76.0 [facility] Comment on above: Performed By: #### 2 38013 ####[facility],[address] [place] [address] 48328 PLATELET 512 x10EE3/UL High 150 - 450 [facility] Comment on above: Performed By: #### 2 16916 ####[facility],[address] [place] [address] 42337 Platelet mean volume (Bld) [Entitic vol] 7.8 fL Normal 6.6 - 10.5 [facility] Comment on above: Result Comment: AUTO MATED DIFFERENTIAL Performed By: #### 2 84170 ####[facility],[address] [place] [address] 00837 PLT EST INCREASED Normal [facility] Comment on above: Performed By: #### 2 91133 ####[facility],[address] [place] [address] 25657 RBC 4.59 x 10EE6/UL Normal 4.10 - 5.30 [facility] Comment on above: Performed By: #### 2 11548 ####[facility],[address] [place] [address] 36326 SEGS 50 % Normal 46 - 76 [facility] Comment on above: Performed By: #### 2 32967 ####[facility],[address] [place] [address] 02105 WBC 15.0 x 10EE3/UL High 4.5 - 10.8 [facility] Comment on above: Performed By: #### 2 73397 ####[facility],[address] [place] [address] 41395 Other RBC MORPH NORMAL Normal [facility] Comment on above: Performed By: #### 2 66777 ####[facility],[address] [place] [address] 38825 CMP with eGFRon 03-23-2025 AGE 34 years Normal [facility] Comment on above: Performed By: #### 2 10338 ####[facility],[address] [place] [address] 86240 Albumin [Mass/Vol] 4.0 g/dL Normal 3.4 - 5.0 [facility] Comment on above: Performed By: #### 2 16034 ####[facility],[address] [place], [place] [address] Albumin/Globulin [Mass ratio] 1.1 {ratio} Normal 0.9 - 1.6 [facility] Comment on above: Performed By: #### 2 54855 ####[facility],[address] [place] [address] 06139 ALK PHOS 88 U/L Normal 46 - 116 [facility] Comment on above: Performed By: #### 2 18777 ####[facility],[address] [place] [address] 36973 ALT [Catalytic activity/Vol] 14 U/L Low 16 - 63 [facility] Comment on above: Performed By: #### 2 04628 ####[facility],[address] [place] [address] 54038 Anion gap [Moles/Vol] 14 mmol/L Normal 10 - 20 [facility] Comment on above: Performed By: #### 2 64343 ####[facility],[address] [place] [address] 94648 AST [Catalytic activity/Vol] 17 U/L Normal 13 - 39 [facility] Comment on above: Performed By: #### 2 66894 ####[facility],[address] [place], [place] [address] B/C RATIO 8 ratio Normal 0 - 30 [facility] Comment on above: Performed By: #### 2 25108 ####[facility],[address] [place], [place] [address] Bilirubin [Mass/Vol] 0.4 mg/dL Normal 0.2 - 1.0 [facility] Comment on above: Performed By: #### 2 43549 ####[facility],[address] [place] [address] Calcium [Mass/Vol] 9.3 mg/dL Normal 8.5 - 10.1 [facility] Comment on above: Performed By: #### 2 53285 ####[facility],[address] [place] [address] Chloride [Moles/Vol] 103 mmol/L Normal 98 - 107 [facility] Comment on above: Performed By: #### 2 68492 ####[facility],[address] [place] [address] CMP with eGFR Normal [facility] Comment on above: Result Comment: COMP REHENSIVE METABOLIC PANEL Performed By: #### 2 66764 ####[facility],[address] [place], [place] [address] CO2 [Moles/Vol] 25.1 mmol/L Normal 21.0 - 32.0 [facility] Comment on above: Performed By: #### 2 34807 ####[facility],[address] [place], [place] [address] Creatinine [Mass/Vol] 1.06 mg/dL High 0.55 - 1.02 [facility] Comment on above: Performed By: #### 2 72943 ####[facility],[address] [place] [address] eGFR 59 ML/MINUTE Low 60 - 999 [facility] Comment on above: Performed By: #### 2 84086 ####[facility],[address] [place] [address] 16572 GFR/1.73 sq M.predicted among non-blacks MDRD (S/P/Bld) [Vol rate/Area] mL/min/{1.73_m2} Normal 60 - 999 [facility] Comment on above: Result Comment: ACCO RDING TO THE NATIONAL KIDNEY DISEASE EDUCATION PROGRAM(NKDE), A NORMAL eGFRIS A VALUE GREATER THAN OR EQUAL TO 60 ML/MIN/1.73 SQ METERS.CHRONIC KIDNEY DISEASE: <60mL/MIN/1.73 SQ METERSKIDNEY FAILURE: <15mL/MIN/1.73 SQ METERSTHIS TEST SHOULD ONLY BE USED FOR PATIENTS 18 YEARS OF AGE AND OLDER. Performed By: #### 2 63654 ####[facility],[address] [place] [address] 73001 Globulin (S) [Mass/Vol] 3.6 g/dL Normal 1.5 - 3.8 [facility] Comment on above: Performed By: #### 2 03338 ####[facility],[address] [place] [address] 48881 Glucose [Mass/Vol] 106 mg/dL Normal 74 - 106 [facility] Comment on above: Performed By: #### 2 46984 ####[facility],[address] [place] [address] 00208 Potassium [Moles/Vol] 3.3 mmol/L Low 3.5 - 5.1 [facility] Comment on above: Performed By: #### 2 43124 ####[facility],[address] [place] [address] 69387 Protein [Mass/Vol] 7.6 g/dL Normal 6.4 - 8.2 [facility] Comment on above: Performed By: #### 2 96420 ####[facility],[address] [place] [address] 33453 Sodium [Moles/Vol] 139 mmol/L Normal 136 - 145 [facility] Comment on above: Performed By: #### 2 [id number] ####[facility],[address] [place] [address] Urea nitrogen [Mass/Vol] 8 mg/dL Normal 7 - 18 [facility] Comment on above: Performed By: #### 2 [id number] ####[facility],[address] [place] [address] ED MED ADMINISTRATION DETAIL on 03-23-2025 ED MED ADMINISTRATION DETAIL Normal [facility] ED NURSES CLINICAL NOTEon ED NURSES CLINICAL NOTE Normal [facility] ED ORDER SHEET (CPOE ONLY)on 03-23-2025 ED ORDER SHEET (CPOE ONLY) Normal [facility] ED PHYSICIAN CLINICAL REPORT on 03-23-2025 ED PHYSICIAN CLINICAL REPORT Normal [facility] ED SUPER BILLon 03-23-2025 ED SUPER BILL Normal [facility] ED VISIT SUMMARYon ED VISIT SUMMARY Normal [facility] ED VITALS FLOW SHEETon 03-23 ED VITALS FLOW SHEET Normal [facility] URINALYSISon 03-23-2025 Amorphous NONE Normal [facility] Comment on above: Performed By: #### 2 [id number] ####[facility],[address] [place] [address] Bacteria 3+ Normal [facility] Comment on above: Performed By: #### 2 31187 ####[facility],[address] [place] [address] Bilirubin Ql (U) Negative Normal NORMAL: NEGATIVE [facility] Comment on above: Performed By: #### 2 49452 ####[facility],[address] [place] [address] Casts NONE Normal [facility] Comment on above: Performed By: #### 2 74439 ####[facility],[address] [place] [address] Clarity (U) sl.cloudy Normal NORMAL: CLEAR [facility] Comment on above: Performed By: #### 2 90162 ####[facility],[address] [place], [place] [id number] Color (U) yellow Normal NORMAL: YELLOW [facility] Comment on above: Performed By: #### 2 50568 ####[facility],[address] [place] [address] Crystals LM Nom (Urine sed) SEE BELOW Normal [facility] Comment on above: Performed By: #### 2 77393 ####[facility],[address] [place] [address] Epi Cells NONE Normal [facility] Comment on above: Performed By: #### 2 60780 ####[facility],[address] [place], [place] [id number] Glucose Ql (U) NORM Normal NORMAL: NORMAL [facility] Comment on above: Performed By: #### 2 42680 ####[facility],[address] [place], [place] [id number] Hemoglobin Ql (U) 250 Abnormal NORMAL: NEGATIVE [facility] Comment on above: Performed By: #### 2 95930 ####[facility],[address] [place], [place] [id number] Ketone Negative Normal NORMAL: NEGATIVE [facility] Comment on above: Performed By: #### 2 11228 ####[facility],[address] [place] [address] Leukocytes 500 Abnormal NORMAL: NEGATIVE [facility] Comment on above: Performed By: #### 2 16440 ####[facility],[address] [place], [place] [id number] Mucous NONE Normal [facility] Comment on above: Performed By: #### 2 27090 ####[facility],[address] [place] [address] Nitrite Ql (U) Positive Normal NORMAL: NEGATIVE [facility] Comment on above: Performed By: #### 2 55178 ####[facility],[address] [place] [address] pH (U) 8 [pH] Normal NORMAL: 5.0-8.0 [facility] Comment on above: Performed By: #### 2 00596 ####[facility],[address] [place] [address] Protein Ql (U) 500 Abnormal NORMAL: NEGATIVE [facility] Comment on above: Performed By: #### 2 78688 ####[facility],[address] [place] [address] Rbc 15-20 Normal 0-3/hpf [facility] Comment on above: Performed By: #### 2 14150 ####[facility],[address] [place] [address] Sp [place] 1.015 Normal NORMAL: 1.010-1.030 [facility] Comment on above: Performed By: #### 2 87800 ####[facility],[address] [place] [address] Specimen Type R Normal [facility] Comment on above: Performed By: #### 2 08746 ####[facility],[address] [place] [address] Triple Phos 1+ Normal NORMAL: NONE [facility] Comment on above: Performed By: #### 2 28951 ####[facility],[address] [place] [address] Urinalysis dipstick W Reflex Microscopic panel (U) SEE BELOW Normal [facility] Comment on above: Result Comment: MICR OSCOPIC Performed By: #### 2 17547 ####[facility],[address] [place] [address] Urobilinog NORM Normal NORMAL: NORMAL [facility] Comment on above: Performed By: #### 2 88788 ####[facility],[address] [place] [address] Wbc 26-50 Normal 0-5/hpf [facility] Comment on above: Performed By: #### 2 58719 ####[facility],[address] [place] [address] Yeast NONE Normal [facility] Comment on above: Performed By: #### 2 04721 ####[facility],[address] [place], [place] [address] .Auto Diffon 03-15-2025 Basophil, Absolute 0.1 10 3/mcL Normal 0.0-0.3 [facility] Comment on above: Performed By: #### A GREGORIA, CMP, CBC, ADIFF, MDW, LAC, GFR ####[address] [address] Basophils/100 WBC (Bld) 0.7 % Normal 0.0-2.5 [facility] Comment on above: Performed By: #### A GREGORIA, CMP, CBC, ADIFF, MDW, LAC, GFR ####[address] [address] Eosinophil, Absolute 0.2 10 3/mcL Normal 0.0-0.7 [facility] Comment on above: Performed By: #### A GREGORIA, CMP, CBC, ADIFF, MDW, LAC, GFR ####[address] [address] Eosinophils/100 WBC (Bld) 2.0 % Normal 0.0-6.0 [facility] Comment on above: Performed By: #### A GREGORIA, CMP, CBC, ADIFF, MDW, LAC, GFR ####[address] [address] Lymphocyte, Absolute 1.9 10 3/mcL Normal 0.9-4.3 [facility] Comment on above: Performed By: #### A GREGORIA, CMP, CBC, ADIFF, MDW, LAC, GFR ####[address] [address] Lymphocytes/100 WBC (Bld) 22.2 % Normal 20.0-40.0 [facility] Comment on above: Performed By: #### A GREGORIA, CMP, CBC, ADIFF, MDW, LAC, GFR ####[place] [address] Monocyte, Absolute 1.0 10 3/mcL Normal 0.1-1.4 [facility] Comment on above: Performed By: #### A GREGORIA, CMP, CBC, ADIFF, MDW, LAC, GFR ####[address] [address] Monocytes/100 WBC (Bld) 11.4 % Normal 2.0-13.0 [facility] Comment on above: Performed By: #### A GREGORIA, CMP, CBC, ADIFF, MDW, LAC, GFR ####[address] [address] Neutrophils/100 WBC (Bld) 63.7 % Normal 50.0-75.0 [facility] Comment on above: Performed By: #### A GREGORIA, CMP, CBC, ADIFF, MDW, LAC, GFR ####[address] [address] .GFRon 03-15-2025 Estimated Glomerular Filtration Rate 98 ml/min/1.73sqm Normal [facility] Comment on above: Result Comment: Stages of Chronic Kidney Disease (CKD) Stage Description eGFR(ml/min/1.73 sq.m.) CKD 1 Normal kidney function or >=90 normal kindney function with possible kidney damage (ex. Proteinuria) CKD 2 Kidney damage with mild loss 60-89 of kidney function CKD 3a Mild to moderate loss of kidney 45-59 function CKD 3b Moderate to severe loss of 30-44 of kindey function CKD 4 Severe loss of kidney function 15-29 CKD 5 Kidney failure <15 Note: (go live 2024) the eGFR calculation was updated to the 2020 CKD-EPI creatinine equation without a race factor to calculate the eGFR results. Performed By: #### A GREGORIA, CMP, CBC, ADIFF, MDW, LAC, GFR ####[address] [address] .MDWon 03-15-2025 Monocyte Distribution Width 19.00 Normal 0.00-20.00 [facility] Comment on above: Result Comment: For ED adult patients suspected of sepsis, MDW<=20.0 does not rule out sepsis or risk of sepsis Performed By: #### A GREGORIA, CMP, CBC, ADIFF, MDW, LAC, GFR ####[place] [address] .NEUABSon 03-15-2025 Neutrophil, Absolute 5.5 10 3/mcL Normal 2.3-8.1 [facility] Comment on above: Performed By: #### A GREGORIA, CMP, CBC, ADIFF, MDW, LAC, GFR ####[place] [address] CBCon 03-15-2025 Erythrocyte distribution width (RBC) [Ratio] 14.7 % Normal 11.5-15.5 [facility] Comment on above: Performed By: #### A GREGORIA, CMP, CBC, ADIFF, MDW, LAC, GFR ####[place] [address] Hematocrit (Bld) [Volume fraction] 38.6 % Normal 34.0-46.0 [facility] Comment on above: Performed By: #### A GREGORIA, CMP, CBC, ADIFF, MDW, LAC, GFR ####[place] [address] Hgb 12.6 G/dL Normal 12.0-16.0 [facility] Comment on above: Performed By: #### A GREGORIA, CMP, CBC, ADIFF, MDW, LAC, GFR ####[place] [address] MCH (RBC) [Entitic mass] 31.4 pg Normal 27.0-33.0 [facility] Comment on above: Performed By: #### A GREGORIA, CMP, CBC, ADIFF, MDW, LAC, GFR ####[place] [address] MCHC 32.5 G/dL Normal 32.0-36.0 [facility] Comment on above: Performed By: #### A GREGORIA, CMP, CBC, ADIFF, MDW, LAC, GFR ####[place] [address] MCV (RBC) [Entitic vol] 96.7 fL Normal 80.0-99.0 [facility] Comment on above: Performed By: #### A GREGORIA, CMP, CBC, ADIFF, MDW, LAC, GFR ####[place] [id number] Platelet 294 10 3/mcL Normal 150-450 [facility] Comment on above: Performed By: #### A GREGORIA, CMP, CBC, ADIFF, MDW, LAC, GFR ####[place] [address] Platelet mean volume (Bld) [Entitic vol] 7.3 fL Normal 6.6-10.5 [facility] Comment on above: Performed By: #### A GREGORIA, CMP, CBC, ADIFF, MDW, LAC, GFR ####[place] [id number] RBC 4.00 10 6/mcL Low 4.10-5.30 [facility] Comment on above: Performed By: #### A GREGORIA, CMP, CBC, ADIFF, MDW, LAC, GFR ####[place] [address] WBC 8.7 10 3/mcL Normal 4.5-10.8 [facility] Comment on above: Performed By: #### A GREGROIA, CMP, CBC, ADIFF, MDW, LAC, GFR ####[place] [address] CMPon 03-15-2025 Albumin Level 4.0 G/dL Normal 3.2-4.8 [facility] Comment on above: Performed By: #### A GREGORIA, CMP, CBC, ADIFF, MDW, LAC, GFR ####[place] [address] Albumin/Globulin [Mass ratio] 1.2 {ratio} Normal 0.9-1.6 [facility] Comment on above: Performed By: #### A GREGORIA, CMP, CBC, ADIFF, MDW, LAC, GFR ####[address] [address] ALP [Catalytic activity/Vol] 72 U/L Normal 38-126 [facility] Comment on above: Performed By: #### A GREGORIA, CMP, CBC, ADIFF, MDW, LAC, GFR ####[address] [address] ALT [Catalytic activity/Vol] 9 U/L Low 10-49 [facility] Comment on above: Performed By: #### A GREGORIA, CMP, CBC, ADIFF, MDW, LAC, GFR ####[address] [address] AST [Catalytic activity/Vol] 19 U/L Normal 8-34 [facility] Comment on above: Performed By: #### A GREGORIA, CMP, CBC, ADIFF, MDW, LAC, GFR ####[place] [id number] Bili Total 0.30 mg/dL Normal 0.20-1.20 [facility] Comment on above: Result Comment: Use of this assay is not recommended for patients undergoing treatment with eltrombopag due to the potential for falsely elevated results. Performed By: #### A GREGORIA, CMP, CBC, ADIFF, MDW, LAC, GFR ####[place] [address] BUN/Creatinine Ratio 7.5 ratio Low 10.0-22.0 [facility] Comment on above: Performed By: #### A GREGORIA, CMP, CBC, ADIFF, MDW, LAC, GFR ####[address] [address] Calcium [Mass/Vol] 9.7 mg/dL Normal 8.7-10.4 [facility] Comment on above: Performed By: #### A GREGORIA, CMP, CBC, ADIFF, MDW, LAC, GFR ####[address] [address] Chloride [Moles/Vol] 107 mmol/L Normal 98-110 [facility] Comment on above: Performed By: #### A GREGORIA, CMP, CBC, ADIFF, MDW, LAC, GFR ####[place] [id number] CO2 [Moles/Vol] 28 mmol/L Normal 22-32 [facility] Comment on above: Performed By: #### A GREGORIA, CMP, CBC, ADIFF, MDW, LAC, GFR ####[place] [id number] Creatinine [Mass/Vol] 0.80 mg/dL Normal 0.50-1.20 [facility] Comment on above: Result Comment: Test ing performed on Connected analyzer using enzymatic creatinine methodology. Performed By: #### A GREGORIA, CMP, CBC, ADIFF, MDW, LAC, GFR ####[place] [id number] Electrolyte Balance 3.0 mEq/L Low 4.0-15.0 [facility] Comment on above: Performed By: #### A GREGORIA, CMP, CBC, ADIFF, MDW, LAC, GFR ####[place] [address] Globulin 3.3 G/dL Normal 2.5-4.2 [facility] Comment on above: Performed By: #### A GREGORIA, CMP, CBC, ADIFF, MDW, LAC, GFR ####[place] [address] Glucose [Mass/Vol] 101 mg/dL Normal 70-110 [facility] Comment on above: Performed By: #### A GREGORIA, CMP, CBC, ADIFF, MDW, LAC, GFR ####[place] [id number] Potassium [Moles/Vol] 3.8 mmol/L Normal 3.5-5.0 [facility] Comment on above: Result Comment: Spec imen slightly hemolyzed. Performed By: #### A GREGORIA, CMP, CBC, ADIFF, MDW, LAC, GFR ####[place] [phone] Sodium [Moles/Vol] 138 mmol/L Normal 136-145 [facility] Comment on above: Performed By: #### A GREGORIA, CMP, CBC, ADIFF, MDW, LAC, GFR ####[place] [address] Total Protein 7.3 G/dL Normal 5.7-8.2 [facility] Comment on above: Performed By: #### A GREGORIA, CMP, CBC, ADIFF, MDW, LAC, GFR ####[facility] [place] [address] Urea nitrogen [Mass/Vol] 6.0 mg/dL Low 8.0-22.0 [facility] Comment on above: Performed By: #### A GREGORIA, CMP, CBC, ADIFF, MDW, LAC, GFR ####[facility] [place] [address] ABD/PELVIS W/ IV CONTRAST ONLYon 03-15-2025 CT ABD/PELVIS W/ IV CONTRAST ONLY ORIGINAL EXAMINATION: CT OF THE ABDOMEN AND PELVIS WITH CONTRAST 03/15/2025 5:56 pm TECHNIQUE: CT of the abdomen and pelvis was performed with the administration of intravenous contrast. Multiplanar reformatted images are provided for review. Automated exposure control, iterative reconstruction, and/or weight based adjustment of the mA/kV was utilized to reduce the radiation dose to as low as reasonably achievable. COMPARISON: CT abdomen with and without contrast 08/09/2025.. HISTORY: ORDERING SYSTEM PROVIDED HISTORY: Reason for Exam: abd pain, uti, hx of cervical ca. pain while urinating abdominal pain FINDINGS: Visualized portion of the lower chest demonstrates no acute abnormality. Liver is within normal limits for size and demonstrates a smooth contour. No abnormal enhancement. Some focal fatty sparing about the falciform is noted. Unremarkable appearance of the gallbladder. The spleen, pancreas and adrenal glands are unremarkable. Redemonstration of atrophy and scarring of the left kidney with a percutaneous nephrostomy tube in place and similar perinephric stranding to prior. Mild left hydroureter is again noted. No hydroureteronephrosis on the right. The urinary bladder is incompletely distended but appears mildly thickened. The uterus is surgically absent. The stomach is partially distended with ingested contents. Bowel gas is noted to the level of the rectum without evidence of obstruction. The appendix is visualized and unremarkable. No free air or fluid. No abdominal or pelvic adenopathy. No abnormality involving the vascular structures. No acute osseous or soft tissue abnormalities are noted. IMPRESSION: 1. Mild thickening of the urinary bladder wall which may be secondary to incomplete distension versus cystitis. Correlation with urinalysis is recommended. 2. Redemonstration of left renal atrophy and scarring with percutaneous nephrostomy tube in place. Interpreted by: Cesar Tamayo Preliminary Report By: Cesar Tamayo Electronically signed By Cesar Tamayo Dictated Date: 03/15/2025 6:02:41 PM Prelim Date: 03/15/2025 6:11:20 PM Sign Date: 03/15/2025 6:11:20 PM Ordering Provider: GUCCI JOAQUIN [facility] MAIN LABORATORYOrdered By: SYSTEM SYSTEM on 03-15-2025 Albumin BCP dye [Mass/Vol] 4.0 G/dL Normal 3.2 - 4.8 G/dL AH ADM SS Albumin/Globulin [Mass ratio] 1.2 {ratio} Normal 0.9 - 1.6 ratio AH ADM SS ALP [Catalytic activity/Vol] 72 U/L Normal 38 - 126 U/L AH ADM SS ALT No additional P-5'-P [Catalytic activity/Vol] 9 U/L Low 10 - 49 U/L AH ADM SS AST [Catalytic activity/Vol] 19 U/L Normal 8 - 34 U/L AH ADM SS Basophils (Bld) [#/Vol] 0.1 103/mcL Normal 0.0 - 0.3 10^3/mcL AH Workflow SS Basophils/100 WBC (Bld) 0.7 % Normal 0.0 - 2.5 % AH Workflow SS Bilirubin [Mass/Vol] 0.30 mg/dL Normal 0.20 - 1.20 mg/dL AH ADM SS Comment on above: Interpretive Data: U se of this assay is not recommended for patients undergoing treatment with eltrombopag due to the potential for falsely elevated results. Calcium [Mass/Vol] 9.7 mg/dL Normal 8.7 - 10. 4 mg/dL AH ADM SS Chloride [Moles/Vol] 107 mmol/L Normal 98 - 11 0 mEq/L AH ADM SS CO2 [Moles/Vol] 28 mmol/L Normal 22 - 32 mEq/L AH ADM SS Creatinine [Mass/Vol] 0.80 mg/dL Normal 0.50 - 1.20 mg/dL AH ADM SS Comment on above: Interpretive Data: T esting performed on Connected analyzer using enzymatic creatinine methodology. Electrolyte Balance 3.0 mEq/L Low 4.0 - 15 .0 mEq/L AH ADM SS Eosinophils (Bld) [#/Vol] 0.2 103/mcL Normal 0.0 - 0.7 10^3/mcL Workflow SS Eosinophils/100 WBC (Bld) 2.0 % Normal 0.0 - 6.0 % Workflow SS Erythrocyte distribution width (RBC) [Ratio] 14.7 % Normal 11.5 - 15.5 % Workflow SS Estimated Glomerular Filtration Rate 98 ml/min/1.73sqm Invalid Interpretation Code [facility] SS Comment on above: Interpretive Data: Stages of Chronic Kidney Disease (CKD) Stage Description eGFR(ml/min/1.73 sq.m.) CKD 1 Normal kidney function or >=90 normal kindney function with possible kidney damage (ex. Proteinuria) CKD 2 Kidney damage with mild loss 60-89 of kidney function CKD 3a Mild to moderate loss of kidney 45-59 function CKD 3b Moderate to severe loss of 30-44 of kindey function CKD 4 Severe loss of kidney function 15-29 CKD 5 Kidney failure <15 Note: (go live 2024) the eGFR calculation was updated to the 2020 CKD-EPI creatinine equation without a race factor to calculate the eGFR results. Globulin 3.3 G/dL Normal 2.5 - 4.2 G/dL ADM SS Glucose [Mass/Vol] 101 mg/dL Normal 70 - 110 mg/dL ADM SS Hematocrit (Bld) [Volume fraction] 38.6 % Normal 34.0 - 46.0 % Workflow SS Hemoglobin (Bld) [Mass/Vol] 12.6 G/dL Normal 12.0 - 16.0 G/dL Workflow SS Lactate [Moles/Vol] 1.3 mmol/L Normal 0.5 - 2. 2 mmol/L ADM SS Lymphocytes (Bld) [#/Vol] 1.9 103/mcL Normal 0.9 - 4.3 10^3/mcL Workflow SS Lymphocytes/100 WBC (Bld) 22.2 % Normal 20.0 - 40.0 % Workflow SS MCH (RBC) [Entitic mass] 31.4 pg Normal 27.0 - 33.0 pg Workflow SS MCHC 32.5 G/dL Normal 32.0 - 36.0 G/dL Workflow SS MCV (RBC) [Entitic vol] 96.7 fL Normal 80.0 - 99.0 fL Workflow SS Monocyte distribution width Auto (Bld) [Entitic vol] 19.00 1 Normal 0.00 - 20.00 AH Workflow SS Comment on above: Result Comment: For ED adult patients suspected of sepsis, MDW<=20.0 does not rule out sepsis or risk of sepsis Monocytes (Bld) [#/Vol] 1.0 103/mcL Normal 0.1 - 1.4 10^3/mcL AH Workflow SS Monocytes/100 WBC (Bld) 11.4 % Normal 2.0 - 13.0 % AH Workflow SS Neutrophils (Bld) [#/Vol] 5.5 103/mcL Normal 2.3 - 8.1 10^3/mcL AH Workflow SS Neutrophils/100 WBC (Bld) 63.7 % Normal 50.0 - 75.0 % AH Workflow SS Platelet mean volume (Bld) [Entitic vol] 7.3 fL Normal 6.6 - 10.5 fL AH Workflow SS Platelets (Bld) [#/Vol] 294 103/mcL Normal 150 - 450 10^3/mcL AH Workflow SS Potassium [Moles/Vol] 3.8 mmol/L Normal 3.5 - 5.0 mEq/L AH ADM SS Comment on above: Result Comment: Spec imen slightly hemolyzed. Protein [Mass/Vol] 7.3 G/dL Normal 5.7 - 8.2 G/dL AH ADM SS RBC (Bld) [#/Vol] 4.00 106/mcL Low 4.10 - 5.3 0 10^6/mcL AH Workflow SS Sodium [Moles/Vol] 138 mmol/L Normal 136 - 145 mEq/L AH ADM SS Urea nitrogen [Mass/Vol] 6.0 mg/dL Low 8.0 - 22.0 mg/dL AH ADM SS Urea nitrogen/Creatinine [Mass ratio] 7.5 ratio Low 10.0 - 22.0 ratio AH ADM SS WBC (Bld) [#/Vol] 8.7 103/mcL Normal 4.5 - 10.8 10^3/mcL AH Workflow SS LABORATORYOrdered By: Nicole Wilson on 03-15-2025 Appearance (U) Clear (03/15/25 4:07 PM) Normal Clear AH Auto Urine SS Bacteria LM.HPF (Urine sed) [#/Area] Trace /HPF Invalid Interpretation Code Negative AH Auto Urine SS Bilirubin Ql (U) Negative (03/15/25 4:07 PM) Normal Neg-Trace AH Auto Urine SS Color (U) Yellow (03/15/25 4:07 PM) Normal AH Auto Urine SS Glucose Test strip (U) [Mass/Vol] Negative Normal Negative AH Auto Urine SS Hemoglobin Auto test strip (U) [Mass/Vol] Small *ABN* (03/15/25 4:07 PM) Invalid Interpretation Code Neg-Trace AH Auto Urine SS Ketones Ql (U) Trace mg/dL Normal Neg-Trace AH Auto Urine SS UA Leuk Est Trace *NA* (03/15/25 4:07 PM) Invalid Interpretation Code Negative AH Auto Urine SS UA Mucous 4+ /HPF Normal AH Auto Urine SS UA Nitrite Negative (03/15/25 4:07 PM) Normal Negative Auto Urine SS UA pH 6.5 (03/15/25 4:07 PM) Normal 5.0 - 8.0 AH Auto Urine SS UA Protein Trace mg/dL Normal Negative AH Auto Urine SS UA RBC 5-10 /HPF Invalid Interpretation Code 0-2 AH Auto Urine SS UA Spec Grav 1.020 (03/15/25 4:07 PM) Normal 1.006-1.029 AH Auto Urine SS UA Specimen Type Clean Catch (03/15/25 4:07 PM) Normal AH Auto Urine SS UA Squam Epithelial 3-5 /HPF Normal 0-20 Au to Urine SS UA Urobilinogen 1.0 E.U./dL Normal 0.2-1.0 AH Auto Urine SS WBC LM.HPF (Urine sed) [#/Area] 0-2 /HPF Normal 0-5 AH Auto Urine SS LACon 03-15-2025 Lactic Acid Lvl 1.3 mmol/L Normal 0.5-2.2 [facility] Comment on above: Performed By: #### A GREGORIA, CMP, CBC, ADIFF, MDW, LAC, GFR ####[address] [address] UAon 03-15-2025 Color (U) Yellow Normal [facility] Comment on above: Performed By: #### U AMIC, UA ####[address] [address] Glucose (U) [Mass/Vol] Negative Normal Negative [facility] Comment on above: Performed By: #### U AMIC, UA ####[address] [address] Ketones Ql (U) Trace Normal Neg-Trace [facility] Comment on above: Performed By: #### U AMIC, UA ####[place] [address] UA Appear Clear Normal Clear [facility] Comment on above: Performed By: #### U AMIC, UA ####[facility] [place] [address] UA Blood Small Abnormal Neg-Trace [facility] Comment on above: Performed By: #### U AMIC, UA ####[facility] [place] [address] UA Leuk Est Trace Normal Negative [facility] Comment on above: Performed By: #### U AMIC, UA ####[place] [address] UA Nitrite Negative Normal Negative [facility] Comment on above: Performed By: #### U AMIC, UA ####[place] [address] UA pH 6.5 Normal 5.0 - 8.0 [facility] Comment on above: Performed By: #### U AMIC, UA ####[place] [address] UA Protein Trace Normal Negative [facility] Comment on above: Performed By: #### U AMIC, UA ####[place] [address] UA Spec Grav 1.020 Normal 1.006-1.029 [facility] Comment on above: Performed By: #### U AMIC, UA ####[place] [address] UA Specimen Type Clean Catch Normal [facility] Comment on above: Performed By: #### U AMIC, UA ####[place] [address] UA Urobilinogen 1.0 E.U./dL Normal 0.2-1.0 [facility] Comment on above: Performed By: #### U AMIC, UA ####[place] [address] Urobilinogen (U) [Mass/Vol] Negative Normal Neg-Trace [facility] Comment on above: Performed By: #### U AMIC, UA ####[place] [address] UAMICon 03-15-2025 UA Bacteria Trace Abnormal Negative [facility] Comment on above: Performed By: #### U AMIC, UA ####[place] [address] UA Mucous 4+ /hpf Normal [facility] Comment on above: Performed By: #### U AMIC, UA ####[place] [address] UA RBC 5-10 Abnormal 0-2 [facility] Comment on above: Performed By: #### U AMIC, UA ####[place] [address] UA Squam Epithelial 3-5 Normal 0-20 [facility] Comment on above: Performed By: #### U AMIC, UA ####[place] [address] UA WBC 0-2 Normal 0-5 [facility] Comment on above: Performed By: #### U AMIC, UA ####[place] [address] .Auto Diffon 03-09-2025 Basophil, Absolute 0.1 10 3/mcL Normal 0.0-0.3 [facility] Comment on above: Performed By: #### A DIFF, MD GURMEETW, GFR, CBC, LAC, LIP, CMP ####[place] [address] Basophils/100 WBC (Bld) 1.0 % Normal 0.0-2.5 [facility] Comment on above: Performed By: #### A DIFFGURMEET MDW, GFR, CBC, LAC, LIP, CMP ####[place] [address] Eosinophil, Absolute 0.2 10 3/mcL Normal 0.0-0.7 [facility] Comment on above: Performed By: #### A DIFF, ANEU, MDW, GFR, CBC, LAC, LIP, CMP ####[address] [address] Eosinophils/100 WBC (Bld) 2.5 % Normal 0.0-6.0 [facility] Comment on above: Performed By: #### A DIFF, ANEU, MDW, GFR, CBC, LAC, LIP, CMP ####[address] [address] Lymphocyte, Absolute 2.2 10 3/mcL Normal 0.9-4.3 [facility] Comment on above: Performed By: #### A DIFF, ANEU, MDW, GFR, CBC, LAC, LIP, CMP ####[address] [address] Lymphocytes/100 WBC (Bld) 24.2 % Normal 20.0-40.0 [facility] Comment on above: Performed By: #### A DIFF, ANEU, MDW, GFR, CBC, LAC, LIP, CMP ####[address] [address] Monocyte, Absolute 0.6 10 3/mcL Normal 0.1-1.4 [facility] Comment on above: Performed By: #### A DIFF, ANEU, MDW, GFR, CBC, LAC, LIP, CMP ####[address] [address] Monocytes/100 WBC (Bld) 6.8 % Normal 2.0-13.0 [facility] Comment on above: Performed By: #### A DIFF, ANEU, MDW, GFR, CBC, LAC, LIP, CMP ####[address] [address] Neutrophils/100 WBC (Bld) 65.5 % Normal 50.0-75.0 [facility] Comment on above: Performed By: #### A DIFF, ANEU, MDW, GFR, CBC, LAC, LIP, CMP ####[address] [address] .GFRon 03-09-2025 Estimated Glomerular Filtration Rate 88 ml/min/1.73sqm Normal [facility] Comment on above: Result Comment: Stages of Chronic Kidney Disease (CKD) Stage Description eGFR(ml/min/1.73 sq.m.) CKD 1 Normal kidney function or >=90 normal kindney function with possible kidney damage (ex. Proteinuria) CKD 2 Kidney damage with mild loss 60-89 of kidney function CKD 3a Mild to moderate loss of kidney 45-59 function CKD 3b Moderate to severe loss of 30-44 of kindey function CKD 4 Severe loss of kidney function 15-29 CKD 5 Kidney failure <15 Note: (go live 2024) the eGFR calculation was updated to the 2020 CKD-EPI creatinine equation without a race factor to calculate the eGFR results. Performed By: #### A DIFF, ANEU, MDW, GFR, CBC, LAC, LIP, CMP ####[place] [address] .MDWon 03-09-2025 Monocyte Distribution Width 14.95 Normal 0.00-20.00 [facility] Comment on above: Result Comment: For ED adult patients suspected of sepsis, MDW<=20.0 does not rule out sepsis or risk of sepsis Performed By: #### A DIFF, ANEU, MDW, GFR, CBC, LAC, LIP, CMP ####[place] [address] .NEUABSon 03-09-2025 Neutrophil, Absolute 5.9 10 3/mcL Normal 2.3-8.1 [facility] Comment on above: Performed By: #### A DIFF, ANEU, MDW, GFR, CBC, LAC, LIP, CMP ####[place] [address] CBCon 03-09-2025 Erythrocyte distribution width (RBC) [Ratio] 14.4 % Normal 11.5-15.5 [facility] Comment on above: Performed By: #### A DIFF, ANEU, MDW, GFR, CBC, LAC, LIP, CMP ####[place] [address] Hematocrit (Bld) [Volume fraction] 43.5 % Normal 34.0-46.0 [facility] Comment on above: Performed By: #### A DIFF, ANEU, MDW, GFR, CBC, LAC, LIP, CMP ####[place] [address] Hgb 14.6 G/dL Normal 12.0-16.0 [facility] Comment on above: Performed By: #### A DIFF, ANEU, MDW, GFR, CBC, LAC, LIP, CMP ####[place] [address] MCH (RBC) [Entitic mass] 32.5 pg Normal 27.0-33.0 [facility] Comment on above: Performed By: #### A DIFF, ANEU, MDW, GFR, CBC, LAC, LIP, CMP ####[place] [address] MCHC 33.7 G/dL Normal 32.0-36.0 [facility] Comment on above: Performed By: #### A DIFF, ANEU, MDW, GFR, CBC, LAC, LIP, CMP ####[place] [address] MCV (RBC) [Entitic vol] 96.5 fL Normal 80.0-99.0 [facility] Comment on above: Performed By: #### A DIFF, ANEU, MDW, GFR, CBC, LAC, LIP, CMP ####[place] [address] Platelet 370 10 3/mcL Normal 150-450 [facility] Comment on above: Performed By: #### A DIFF, ANEU, MDW, GFR, CBC, LAC, LIP, CMP ####[place] [address] Platelet mean volume (Bld) [Entitic vol] 7.4 fL Normal 6.6-10.5 [facility] Comment on above: Performed By: #### A DIFF, ANEU, MDW, GFR, CBC, LAC, LIP, CMP ####[place] [address] RBC 4.50 10 6/mcL Normal 4.10-5.30 [facility] Comment on above: Performed By: #### A DIFF, ANEU, MDW, GFR, CBC, LAC, LIP, CMP ####[place] [address] WBC 9.0 10 3/mcL Normal 4.5-10.8 [facility] Comment on above: Performed By: #### A DIFF, ANEU, MDW, GFR, CBC, LAC, LIP, CMP ####[place] [address] CMPon 03-09-2025 Albumin Level 4.4 G/dL Normal 3.2-4.8 [facility] Comment on above: Performed By: #### A DIFF, ANEU, MDW, GFR, CBC, LAC, LIP, CMP ####[place] [address] Albumin/Globulin [Mass ratio] 1.4 {ratio} Normal 0.9-1.6 [facility] Comment on above: Performed By: #### A DIFF, ANEU, MDW, GFR, CBC, LAC, LIP, CMP ####[place] [address] ALP [Catalytic activity/Vol] 76 U/L Normal 38-126 [facility] Comment on above: Performed By: #### A DIFF, ANEU, MDW, GFR, CBC, LAC, LIP, CMP ####[place] [address] ALT [Catalytic activity/Vol] 11 U/L Normal 10-49 [facility] Comment on above: Performed By: #### A DIFF, ANEU, MDW, GFR, CBC, LAC, LIP, CMP ####[place] [address] AST [Catalytic activity/Vol] 19 U/L Normal 8-34 [facility] Comment on above: Performed By: #### A DIFF, ANEU, MDW, GFR, CBC, LAC, LIP, CMP ####[place] [address] Bili Total 0.40 mg/dL Normal 0.20-1.20 [facility] Comment on above: Result Comment: Use of this assay is not recommended for patients undergoing treatment with eltrombopag due to the potential for falsely elevated results. Performed By: #### A DIFF, ANEU, MDW, GFR, CBC, LAC, LIP, CMP ####[place] [address] BUN/Creatinine Ratio 10.3 ratio Normal 10.0-22.0 [facility] Comment on above: Performed By: #### A DIFF, ANEU, MDW, GFR, CBC, LAC, LIP, CMP ####[place] [address] Calcium [Mass/Vol] 9.9 mg/dL Normal 8.7-10.4 [facility] Comment on above: Performed By: #### A DIFF, ANEU, MDW, GFR, CBC, LAC, LIP, CMP ####[place] [address] Chloride [Moles/Vol] 109 mmol/L Normal 98-110 [facility] Comment on above: Performed By: #### A DIFF, ANEU, MDW, GFR, CBC, LAC, LIP, CMP ####[place] [address] CO2 [Moles/Vol] 27 mmol/L Normal 22-32 [facility] Comment on above: Performed By: #### A DIFF, ANEU, MDW, GFR, CBC, LAC, LIP, CMP ####[place] [address] Creatinine [Mass/Vol] 0.87 mg/dL Normal 0.50-1.20 [facility] Comment on above: Result Comment: Test ing performed on Connected analyzer using enzymatic creatinine methodology. Performed By: #### A DIFF, ANEU, MDW, GFR, CBC, LAC, LIP, CMP ####[place] [address] Electrolyte Balance 4.0 mEq/L Normal 4.0-15.0 [facility] Comment on above: Performed By: #### A DIFF, ANEU, MDW, GFR, CBC, LAC, LIP, CMP ####[place] [address] Globulin 3.1 G/dL Normal 2.5-4.2 [facility] Comment on above: Performed By: #### A DIFF, ANEU, MDW, GFR, CBC, LAC, LIP, CMP ####[address] [address] Glucose [Mass/Vol] 80 mg/dL Normal 70-110 [facility] Comment on above: Performed By: #### A DIFF, ANEU, MDW, GFR, CBC, LAC, LIP, CMP ####[address] [address] Potassium [Moles/Vol] 3.9 mmol/L Normal 3.5-5.0 [facility] Comment on above: Performed By: #### A DIFF, ANEU, MDW, GFR, CBC, LAC, LIP, CMP ####[place] [address] Sodium [Moles/Vol] 140 mmol/L Normal 136-145 [facility] Comment on above: Performed By: #### A DIFF, ANEU, MDW, GFR, CBC, LAC, LIP, CMP ####[place] [address] Total Protein 7.5 G/dL Normal 5.7-8.2 [facility] Comment on above: Performed By: #### A DIFF, ANEU, MDW, GFR, CBC, LAC, LIP, CMP ####[place] [address] Urea nitrogen [Mass/Vol] 9.0 mg/dL Normal 8.0-22.0 [facility] Comment on above: Performed By: #### A DIFF, ANEU, MDW, GFR, CBC, LAC, LIP, CMP ####[place] [address] CT RENALon 03-09-2025 CT RENAL ORIGINAL EXAMINATION: CT RENAL 03/09/2025 3:54 pm TECHNIQUE: CT of the abdomen was performed without and then with the administration of intravenous contrast. Multiplanar reformatted images are provided for review. Automated exposure control, iterative reconstruction, and/or weight based adjustment of the mA/kV was utilized to reduce the radiation dose to as low as reasonably achievable. COMPARISON: CT abdomen pelvis April 27, 2023, fluoroscopic images from nephrostomy exchange February 16, 2025. HISTORY: ORDERING SYSTEM PROVIDED HISTORY: Reason for Exam: renal failure, hx of cervical ca. uti. flank pain flank pain. FINDINGS: Kidneys and visualized portions of the proximal ureters: Redemonstrated areas of left renal scarring. Left renal collecting system and proximal ureteral wall thickening and enhancement with mild surrounding haziness. Similar appearing left pelvicaliectasis. Asymmetric left perinephric edema. Asymmetric percutaneous nephrostomy tube Vasculature: Nonaneurysmal abdominal aorta. Lymph nodes and retroperitoneal spaces: A few chronic mildly prominent retroperitoneal lymph nodes at the level of the left renal vessels. GI/Bowel: Grossly unremarkable. Solid Organs: A few scattered subcentimeter hypodensities in the liver which are too small to characterize. Bones/Soft Tissues: No acute osseous abnormality. IMPRESSION: Left renal collecting system and proximal ureteral wall thickening and enhancement with mild surrounding haziness, which could be chronic although correlate with urinalysis if concern for underlying infection. Similar appearing left pelvicaliectasis with percutaneous nephrostomy tube in place. I have personally reviewed the images of this examination and agree with the resident's findings and interpretation. Interpreted by: Scooby Jose Preliminary Report By: Scooby Jose Electronically signed By Scooby Jose Dictated Date: 03/09/2025 4:00:57 PM Prelim Date: 03/09/2025 4:13:54 PM Sign Date: 03/09/2025 4:13:54 PM Ordering Provider: SHAHBAZ Aragon [facility] LABORATORYOrdered By: Nicole Wilson on 03-09-2025 Appearance (U) Clear (03/09/25 2:30 PM) Normal Clear AH Auto Urine SS Bilirubin Ql (U) Negative (03/09/25 2:30 PM) Normal Neg-Trace AH Auto Urine SS Color (U) Yellow (03/09/25 2:30 PM) Normal AH Auto Urine SS Glucose Test strip (U) [Mass/Vol] Negative Normal Negative AH Auto Urine SS Hemoglobin Auto test strip (U) [Mass/Vol] Small *ABN* (03/09/25 2:30 PM) Invalid Interpretation Code Neg-Trace AH Auto Urine SS Ketones Ql (U) Negative Normal Neg-Trace AH Auto Urine SS UA Leuk Est Moderate *ABN* (03/09/25 2:30 PM) Invalid Interpretation Code Negative AH Auto Urine SS UA Nitrite Negative (03/09/25 2:30 PM) Normal Negative AH Auto Urine SS UA pH 7.5 (03/09/25 2:30 PM) Normal 5.0 - 8.0 AH Auto Urine SS UA Protein Trace mg/dL Normal Negative AH Auto Urine SS UA Spec Grav <=1.005 *ABN* (03/09/25 2:30 PM) Invalid Interpretation Code 1.006-1.029 AH Auto Urine SS UA Specimen Type Not Given (03/09/25 2:30 PM) Normal AH Auto Urine SS UA Urobilinogen 0.2 E.U./dL Normal 0.2-1.0 AH Auto Urine SS LABORATORYOrdered By: Tricia Wilkerson on 03-09-2025 Bacteria LM.HPF (Urine sed) [#/Area] Trace /HPF Invalid Interpretation Code Negative AH Auto Urine SS RBC.non-dysmorphic LM Ql (Urine sed) Rare /HPF Invalid Interpretation Code AH Auto Urine SS UA RBC 3-5 /HPF Invalid Interpretation Code 0-2 AH Auto Urine SS UA Squam Epithelial Rare /HPF Normal 0-20 AH Au to Urine SS WBC LM.HPF (Urine sed) [#/Area] 3-5 /HPF Normal 0-5 AH Auto Urine SS LABORATORYOrdered By: SYSTEM SYSTEM on 03-09-2025 Albumin BCP dye [Mass/Vol] 4.4 G/dL Normal 3.2 - 4.8 G/dL AH ADM SS Albumin/Globulin [Mass ratio] 1.4 {ratio} Normal 0.9 - 1.6 ratio AH ADM SS ALP [Catalytic activity/Vol] 76 U/L Normal 38 - 126 U/L AH ADM SS ALT No additional P-5'-P [Catalytic activity/Vol] 11 U/L Normal 10 - 49 U/L AH ADM SS AST [Catalytic activity/Vol] 19 U/L Normal 8 - 34 U/L AH ADM SS Basophils (Bld) [#/Vol] 0.1 103/mcL Normal 0.0 - 0.3 10^3/mcL AH Workflow SS Basophils/100 WBC (Bld) 1.0 % Normal 0.0 - 2.5 % AH Workflow SS Bilirubin [Mass/Vol] 0.40 mg/dL Normal 0.20 - 1.20 mg/dL AH ADM SS Comment on above: Interpretive Data: U se of this assay is not recommended for patients undergoing treatment with eltrombopag due to the potential for falsely elevated results. Calcium [Mass/Vol] 9.9 mg/dL Normal 8.7 - 10. 4 mg/dL AH ADM SS Chloride [Moles/Vol] 109 mmol/L Normal 98 - 11 0 mEq/L AH ADM SS CO2 [Moles/Vol] 27 mmol/L Normal 22 - 32 mEq/L AH ADM SS Creatinine [Mass/Vol] 0.87 mg/dL Normal 0.50 - 1.20 mg/dL AH ADM SS Comment on above: Interpretive Data: T esting performed on Connected analyzer using enzymatic creatinine methodology. Electrolyte Balance 4.0 mEq/L Normal 4.0 - 15 .0 mEq/L ADM SS Eosinophils (Bld) [#/Vol] 0.2 103/mcL Normal 0.0 - 0.7 10^3/mcL Workflow SS Eosinophils/100 WBC (Bld) 2.5 % Normal 0.0 - 6.0 % Workflow SS Erythrocyte distribution width (RBC) [Ratio] 14.4 % Normal 11.5 - 15.5 % Workflow SS Estimated Glomerular Filtration Rate 88 ml/min/1.73sqm Invalid Interpretation Code ADM SS Comment on above: Interpretive Data: Stages of Chronic Kidney Disease (CKD) Stage Description eGFR(ml/min/1.73 sq.m.) CKD 1 Normal kidney function or >=90 normal kindney function with possible kidney damage (ex. Proteinuria) CKD 2 Kidney damage with mild loss 60-89 of kidney function CKD 3a Mild to moderate loss of kidney 45-59 function CKD 3b Moderate to severe loss of 30-44 of kindey function CKD 4 Severe loss of kidney function 15-29 CKD 5 Kidney failure <15 Note: (go live 2024) the eGFR calculation was updated to the 2020 CKD-EPI creatinine equation without a race factor to calculate the eGFR results. Globulin 3.1 G/dL Normal 2.5 - 4.2 G/dL AH ADM SS Glucose [Mass/Vol] 80 mg/dL Normal 70 - 110 mg/dL ADM SS Hematocrit (Bld) [Volume fraction] 43.5 % Normal 34.0 - 46.0 % Workflow SS Hemoglobin (Bld) [Mass/Vol] 14.6 G/dL Normal 12.0 - 16.0 G/dL Workflow SS Lactate [Moles/Vol] 0.9 mmol/L Normal 0.5 - 2. 2 mmol/L AH ADM SS Lipase [Catalytic activity/Vol] 25 U/L Normal 12 - 53 U/L AH ADM SS Comment on above: Interpretive Data: * *Note - New Reference Range in effect 20 Lymphocytes (Bld) [#/Vol] 2.2 103/mcL Normal 0.9 - 4.3 10^3/mcL AH Workflow SS Lymphocytes/100 WBC (Bld) 24.2 % Normal 20.0 - 40.0 % AH Workflow SS MCH (RBC) [Entitic mass] 32.5 pg Normal 27.0 - 33.0 pg AH Workflow SS MCHC 33.7 G/dL Normal 32.0 - 36.0 G/dL AH Workflow SS MCV (RBC) [Entitic vol] 96.5 fL Normal 80.0 - 99.0 fL AH Workflow SS Monocyte distribution width Auto (Bld) [Entitic vol] 14.95 1 Normal 0.00 - 20.00 AH Workflow SS Comment on above: Result Comment: For ED adult patients suspected of sepsis, MDW<=20.0 does not rule out sepsis or risk of sepsis Monocytes (Bld) [#/Vol] 0.6 103/mcL Normal 0.1 - 1.4 10^3/mcL AH Workflow SS Monocytes/100 WBC (Bld) 6.8 % Normal 2.0 - 13.0 % AH Workflow SS Neutrophils (Bld) [#/Vol] 5.9 103/mcL Normal 2.3 - 8.1 10^3/mcL AH Workflow SS Neutrophils/100 WBC (Bld) 65.5 % Normal 50.0 - 75.0 % AH Workflow SS Platelet mean volume (Bld) [Entitic vol] 7.4 fL Normal 6.6 - 10.5 fL AH Workflow SS Platelets (Bld) [#/Vol] 370 103/mcL Normal 150 - 450 10^3/mcL AH Workflow SS Potassium [Moles/Vol] 3.9 mmol/L Normal 3.5 - 5.0 mEq/L AH ADM SS Protein [Mass/Vol] 7.5 G/dL Normal 5.7 - 8.2 G/dL AH ADM SS RBC (Bld) [#/Vol] 4.50 106/mcL Normal 4.10 - 5.3 0 10^6/mcL AH Workflow SS Sodium [Moles/Vol] 140 mmol/L Normal 136 - 145 mEq/L ADM SS Urea nitrogen [Mass/Vol] 9.0 mg/dL Normal 8.0 - 22.0 mg/dL ADM SS Urea nitrogen/Creatinine [Mass ratio] 10.3 ratio Normal 10.0 - 22.0 ratio AH ADM SS WBC (Bld) [#/Vol] 9.0 103/mcL Normal 4.5 - 10.8 10^3/mcL AH Workflow SS LACon 03-09-2025 Lactic Acid Lvl 0.9 mmol/L Normal 0.5-2.2 [facility] Comment on above: Performed By: #### A GURMEET MAYORGA MDW, GFR, CBC, LAC, LIP, CMP ####[place] [address] LIPon 03-09-2025 Lipase Level 25 U/L Normal 12-53 [facility] Comment on above: Result Comment: No te - New Reference Range in effect 20 Performed By: #### A DIFF, MD GURMEETW, GFR, CBC, LAC, LIP, CMP ####[place] [address] UAon 03-09-2025 Color (U) Yellow Normal [facility] Comment on above: Performed By: #### U A, UAMIC ####[place] [address] Glucose (U) [Mass/Vol] Negative Normal Negative [facility] Comment on above: Performed By: #### U A, UAMIC ####[place] [address] Ketones Ql (U) Negative Normal Neg-Trace [facility] Comment on above: Performed By: #### U A, UAMIC ####[place] [address] UA Appear Clear Normal Clear [facility] Comment on above: Performed By: #### U A, UAMIC ####[place] [address] UA Blood Small Abnormal Neg-Trace [facility] Comment on above: Performed By: #### U A, UAMIC ####[place] [address] UA Leuk Est Moderate Abnormal Negative [facility] Comment on above: Performed By: #### U A, UAMIC ####[place] [address] UA Nitrite Negative Normal Negative [facility] Comment on above: Performed By: #### U A, UAMIC ####[place] [address] UA pH 7.5 Normal 5.0 - 8.0 [facility] Comment on above: Performed By: #### U A, UAMIC ####[place] [address] UA Protein Trace Normal Negative [facility] Comment on above: Performed By: #### U A, UAMIC ####[place] [address] UA Spec Grav <=1.005 Abnormal 1.006-1.029 [facility] Comment on above: Performed By: #### U A, UAMIC ####[place] [address] UA Specimen Type Not Given Normal [facility] Comment on above: Performed By: #### U A, UAMIC ####[place] [address] UA Urobilinogen 0.2 E.U./dL Normal 0.2-1.0 [facility] Comment on above: Performed By: #### U A, UAMIC ####[place] [address] Urobilinogen (U) [Mass/Vol] Negative Normal Neg-Trace [facility] Comment on above: Performed By: #### U A, UAMIC ####[place] [address] UAMICon 03-09-2025 UA Bacteria Trace Abnormal Negative [facility] Comment on above: Performed By: #### U A, UAMIC ####[place] [address] UA Crenated RBCs Rare Abnormal [facility] Comment on above: Performed By: #### U A, UAMIC ####[facility] [place] [address] UA RBC 3-5 Abnormal 0-2 [facility] Comment on above: Performed By: #### U A, UAMIC ####[place] [id number] [place] [address] UA Squam Epithelial Rare Normal 0-20 [facility] Comment on above: Performed By: #### U A, UAMIC ####[facility] [place] [address] UA WBC 3-5 Normal 0-5 [facility] Comment on above: Performed By: #### U A, UAMIC ####[place] [address] XR CHEST 1 VIEWon 03-09-2025 XR CHEST 1 VIEW ORIGINAL EXAMINATION: ONE XRAY VIEW OF THE CHEST03/09/2025 1:49 pm COMPARISON: CT abdomen pelvis 04/27/2023, CT chest 04/13/2020. HISTORY: ORDERING SYSTEM PROVIDED HISTORY: Reason for Exam: fever, pain or tachypnea FINDINGS: Cardiomediastinal contours are within normal limits. No focal consolidation or pulmonary edema. No pneumothorax or pleural effusion. No acute osseous abnormalities. IMPRESSION: No acute cardiopulmonary process. I have personally reviewed the images of this examination and agree with the resident's findings and interpretation. Interpreted by: Martha Trivedi MD Preliminary Report By: Gonzalez Méndez MD Electronically signed By Martha Trivedi MD Dictated Date: 03/09/2025 1:57:32 PM Prelim Date: 03/09/2025 2:07:59 PM Sign Date: 03/09/2025 2:07:59 PM Ordering Provider: SHAHBAZ Aragon [facility] ED MED ADMINISTRATION DETAIL on 03-08-2025 ED MED ADMINISTRATION DETAIL Normal [facility] ED MED ADMINISTRATION DETAIL Normal [facility] ED NURSES CLINICAL NOTEon ED NURSES CLINICAL NOTE Normal [facility] ED NURSES CLINICAL NOTE Normal [facility] ED ORDER SHEET (CPOE ONLY)on 03-08-2025 ED ORDER SHEET (CPOE ONLY) Normal [facility] ED ORDER SHEET (CPOE ONLY) Normal [facility] ED PHYSICIAN CLINICAL REPORT on 03-08-2025 ED PHYSICIAN CLINICAL REPORT Normal [facility] ED PHYSICIAN CLINICAL REPORT Normal [facility] ED SUPER BILLon 03-08-2025 ED SUPER BILL Normal [facility] ED SUPER BILL Normal [facility] ED VISIT SUMMARYon ED VISIT SUMMARY Normal [facility] ED VISIT SUMMARY Normal [facility] ED VITALS FLOW SHEETon 03-08 ED VITALS FLOW SHEET Normal [facility] ED VITALS FLOW SHEET Normal [facility] URINE CULTURE [CCL]on 2024 Bacteria identified Cx Nom (U) Normal [facility] Comment on above: Performed By: #### 2 [id number] ####[facility],[address] [place], [place] [id number] BMP with eGFRon 03-07-2025 AGE 34 years Normal [facility] Comment on above: Performed By: #### 2 [id number] ####[facility],[address] [place], [place] [id number] Anion gap [Moles/Vol] 14 mmol/L Normal 10 - 20 [facility] Comment on above: Performed By: #### 2 [id number] ####[facility],[address] [place] [id number] BMP with eGFR Normal [facility] Comment on above: Result Comment: BASI C METABOLIC PANEL Performed By: #### 2 [id number] ####[facility],[address] [place] [id number] Calcium [Mass/Vol] 8.8 mg/dL Normal 8.5 - 10.1 [facility] Comment on above: Performed By: #### 2 [id number] ####[facility],[address] [place] [address] 90215 Chloride [Moles/Vol] 105 mmol/L Normal 98 - 107 [facility] Comment on above: Performed By: #### 2 42727 ####[facility],[address] [place] [address] 78860 CO2 [Moles/Vol] 26.5 mmol/L Normal 21.0 - 32.0 [facility] Comment on above: Performed By: #### 2 39756 ####[facility],[address] [place] [address] 39138 Creatinine [Mass/Vol] 0.94 mg/dL Normal 0.55 - 1.02 [facility] Comment on above: Performed By: #### 2 71302 ####[facility],[address] [place], [place] [address] GFR/1.73 sq M.predicted among non-blacks MDRD (S/P/Bld) [Vol rate/Area] mL/min/{1.73_m2} Normal 60 - 999 [facility] Comment on above: Performed By: #### 2 71611 ####[facility],[address] [place], [place] [address] Result Comment: ACCO RDING TO THE NATIONAL KIDNEY DISEASE EDUCATION PROGRAM(NKDE), A NORMAL eGFRIS A VALUE GREATER THAN OR EQUAL TO 60 ML/MIN/1.73 SQ METERS.CHRONIC KIDNEY DISEASE: <60mL/MIN/1.73 SQ METERSKIDNEY FAILURE: <15mL/MIN/1.73 SQ METERSTHIS TEST SHOULD ONLY BE USED FOR PATIENTS 18 YEARS OF AGE AND OLDER. Glucose [Mass/Vol] 109 mg/dL High 74 - 106 [facility] Comment on above: Performed By: #### 2 48652 ####[facility],[address] [place] [address] 61687 Potassium [Moles/Vol] 3.7 mmol/L Normal 3.5 - 5.1 [facility] Comment on above: Performed By: #### 2 13550 ####[facility],[address] [place] [address] 81088 Sodium [Moles/Vol] 142 mmol/L Normal 136 - 145 [facility] Comment on above: Performed By: #### 2 91911 ####[facility],[address] [place] [address] Urea nitrogen [Mass/Vol] 11 mg/dL Normal 7 - 18 [facility] Comment on above: Performed By: #### 2 75633 ####[facility],[address] [place] [address] CBC + DIFFon 03-07-2025 Baso # 0.04 x10EE3/UL Normal 0.00 - 0.10 [facility] Comment on above: Performed By: #### 2 00358 ####[facility],[address] [place], [place] [address] Basophils/100 WBC (Bld) 0.5 % Normal 0.0 - 2.0 [facility] Comment on above: Performed By: #### 2 83524 ####[facility],[address] [place] [address] CBC + DIFF Normal [facility] Comment on above: Result Comment: CBC- COMPLETE BLOOD COUNT Performed By: #### 2 43505 ####[facility],[address] [place] [address] EO # 0.19 x10EE3/UL Normal 0.00 - 0.50 [facility] Comment on above: Performed By: #### 2 62380 ####[facility],[address] [place] [address] 53131 Eosinophils/100 WBC (Bld) 2.5 % Normal 0.0 - 7.0 [facility] Comment on above: Performed By: #### 2 55043 ####[facility],[address] [place] [address] Erythrocyte distribution width (RBC) [Ratio] 13.4 % Normal 12.0 - 15.6 [facility] Comment on above: Performed By: #### 2 27345 ####[facility],[address] [place] [address] Hematocrit (Bld) [Volume fraction] 36.1 % Normal 34.0 - 46.0 [facility] Comment on above: Performed By: #### 2 06701 ####[facility],[address] [place] [address] Hemoglobin (Bld) [Mass/Vol] 12.4 g/dL Normal 12.0 - 16.0 [facility] Comment on above: Performed By: #### 2 50856 ####[facility],[address] [place] [address] Lymph # 2.18 x10EE3/UL Normal 0.80 - 2.80 [facility] Comment on above: Performed By: #### 2 40765 ####[facility],[address] [place] [address] Lymphocytes/100 WBC (Bld) 27.9 % Normal 20.0 - 45.0 [facility] Comment on above: Performed By: #### 2 80670 ####[facility],[address] [place] [address] MANUAL DIFF N/A Normal [facility] Comment on above: Performed By: #### 2 09496 ####[facility],[address] [place] [address] MCH (RBC) [Entitic mass] 33 pg Normal 27 - 33 [facility] Comment on above: Performed By: #### 2 94029 ####[facility],[address] [place] [address] MCHC 34 X10 3 Normal 32 - 36 [facility] Comment on above: Performed By: #### 2 07565 ####[facility],[address] [place], [place] [address] MCV (RBC) [Entitic vol] 97 fL Normal 80 - 99 [facility] Comment on above: Performed By: #### 2 40504 ####[facility],[address] [place] [address] [place]mort[place] # 0.67 x10EE3/UL Normal 0.20 - 1.00 [facility] Comment on above: Performed By: #### 2 50246 ####[facility],[address] [place] [address] MONOS % 8.5 % Normal 0.0 - 10.0 [facility] Comment on above: Performed By: #### 2 98339 ####[facility],[address] [place] [address] Morphology Efra (Bld) [Interp] N/A Normal [facility] Comment on above: Performed By: #### 2 11398 ####[facility],[address] [place] [address] Neut # 4.76 x10EE3/UL Normal 1.50 - 7.10 [facility] Comment on above: Performed By: #### 2 94503 ####[place] [address] Neutrophils/100 WBC (Bld) 60.8 % Normal 46.0 - 76.0 [facility] Comment on above: Performed By: #### 2 06930 ####[place] [address] PLATELET 367 x10EE3/UL Normal 150 - 450 [facility] Comment on above: Performed By: #### 2 83116 ####[facility],[address] [place] [address] Platelet mean volume (Bld) [Entitic vol] 6.9 fL Normal 6.6 - 10.5 [facility] Comment on above: Result Comment: AUTO MATED DIFFERENTIAL Performed By: #### 2 98454 ####[place] [address] RBC 3.74 x 10EE6/UL Low 4.10 - 5.30 [facility] Comment on above: Performed By: #### 2 18795 ####[place] [address] WBC 7.8 x 10EE3/UL Normal 4.5 - 10.8 [facility] Comment on above: Performed By: #### 2 70709 ####[facility],[address] [place] [address] ED MED ADMINISTRATION DETAIL on 03-07-2025 ED MED ADMINISTRATION DETAIL Normal [facility] ED NURSES CLINICAL NOTEon ED NURSES CLINICAL NOTE Normal [facility] ED ORDER SHEET (CPOE ONLY)on 03-07-2025 ED ORDER SHEET (CPOE ONLY) Normal [facility] ED PHYSICIAN CLINICAL REPORT on 03-07-2025 ED PHYSICIAN CLINICAL REPORT Normal [facility] ED SUPER BILLon 03-07-2025 ED SUPER BILL Normal [facility] ED VISIT SUMMARYon ED VISIT SUMMARY Normal [facility] ED VITALS FLOW SHEETon 03-07 ED VITALS FLOW SHEET Normal [facility] CMP with eGFRon 03-06-2025 AGE 34 years Normal [facility] Comment on above: Performed By: #### 2 92777 ####[facility],[address] [place] [address] Albumin [Mass/Vol] 3.5 g/dL Normal 3.4 - 5.0 [facility] Comment on above: Performed By: #### 2 27303 ####[facility],[address] [place], [place] [address] Albumin/Globulin [Mass ratio] 1.2 {ratio} Normal 0.9 - 1.6 [facility] Comment on above: Performed By: #### 2 80089 ####[facility],[address] [place], [place] [address] ALK PHOS 70 U/L Normal 46 - 116 [facility] Comment on above: Performed By: #### 2 57598 ####[facility],[address] [place], [place] [address] ALT [Catalytic activity/Vol] 15 U/L Low 16 - 63 [facility] Comment on above: Performed By: #### 2 07445 ####[facility],[address] [place] [address] 46666 Anion gap [Moles/Vol] 11 mmol/L Normal 10 - 20 [facility] Comment on above: Performed By: #### 2 51659 ####[facility],[address] [place] [address] 73456 AST [Catalytic activity/Vol] 21 U/L Normal 13 - 39 [facility] Comment on above: Result Comment: NATHANIEL ANA LILIA SAMPLE;MANUAL DILUTION PERFORMED Performed By: #### 2 85565 ####[facility],[address] [place] [address] B/C RATIO 11 ratio Normal 0 - 30 [facility] Comment on above: Performed By: #### 2 78911 ####[address] [address] Bilirubin [Mass/Vol] 0.3 mg/dL Normal 0.2 - 1.0 [facility] Comment on above: Performed By: #### 2 48116 ####[facility],[address] [place] [address] 88594 Calcium [Mass/Vol] 8.8 mg/dL Normal 8.5 - 10.1 [facility] Comment on above: Performed By: #### 2 75447 ####[facility],[address] [place] [address] 03085 Chloride [Moles/Vol] 107 mmol/L Normal 98 - 107 [facility] Comment on above: Performed By: #### 2 66162 ####[facility],[address] [place] [address] 27684 CMP with eGFR Normal [facility] Comment on above: Result Comment: COMP REHENSIVE METABOLIC PANEL Performed By: #### 2 80415 ####[facility],[address] [place] [address] 64481 CO2 [Moles/Vol] 24.2 mmol/L Normal 21.0 - 32.0 [facility] Comment on above: Performed By: #### 2 38101 ####[facility],[address] [place], [place] [address] Creatinine [Mass/Vol] 1.03 mg/dL High 0.55 - 1.02 [facility] Comment on above: Performed By: #### 2 01605 ####[facility],[address] [place], [place] [address] GFR/1.73 sq M.predicted among non-blacks MDRD (S/P/Bld) [Vol rate/Area] mL/min/{1.73_m2} Normal 60 - 999 [facility] Comment on above: Performed By: #### 2 46866 ####[facility],[address] [place] [address] Result Comment: ACCO RDING TO THE NATIONAL KIDNEY DISEASE EDUCATION PROGRAM(NKDE), A NORMAL eGFRIS A VALUE GREATER THAN OR EQUAL TO 60 ML/MIN/1.73 SQ METERS.CHRONIC KIDNEY DISEASE: <60mL/MIN/1.73 SQ METERSKIDNEY FAILURE: <15mL/MIN/1.73 SQ METERSTHIS TEST SHOULD ONLY BE USED FOR PATIENTS 18 YEARS OF AGE AND OLDER. Globulin (S) [Mass/Vol] 2.9 g/dL Normal 1.5 - 3.8 [facility] Comment on above: Performed By: #### 2 69452 ####[facility],[address] [place] [address] 62935 Glucose [Mass/Vol] 111 mg/dL High 74 - 106 [facility] Comment on above: Performed By: #### 2 48780 ####[facility],[address] [place] [address] 97337 Potassium [Moles/Vol] 3.6 mmol/L Normal 3.5 - 5.1 [facility] Comment on above: Performed By: #### 2 27738 ####[place] [address],[place] [address] Protein [Mass/Vol] 6.4 g/dL Normal 6.4 - 8.2 [facility] Comment on above: Performed By: #### 2 51057 ####[facility],[address] [place] [address] 75353 Sodium [Moles/Vol] 139 mmol/L Normal 136 - 145 [facility] Comment on above: Performed By: #### 2 63302 ####[facility],[address] [place] [address] 51068 Urea nitrogen [Mass/Vol] 11 mg/dL Normal 7 - 18 [facility] Comment on above: Performed By: #### 2 21994 ####[facility],[address] [place] [address] 37463 CBC + DIFFon 03-05-2025 Baso # 0.03 x10EE3/UL Normal 0.00 - 0.10 [facility] Comment on above: Performed By: #### 2 63639 ####[facility],[address] [place] [address] 34517 Basophils/100 WBC (Bld) 0.3 % Normal 0.0 - 2.0 [facility] Comment on above: Performed By: #### 2 57856 ####[facility],[address] [place] [address] 56754 CBC + DIFF Normal [facility] Comment on above: Result Comment: CBC- COMPLETE BLOOD COUNT Performed By: #### 2 23317 ####[facility],[address] [place] [address] 77444 EO # 0.28 x10EE3/UL Normal 0.00 - 0.50 [facility] Comment on above: Performed By: #### 2 86066 ####[facility],[address] [place] [address] 81424 Eosinophils/100 WBC (Bld) 3.0 % Normal 0.0 - 7.0 [facility] Comment on above: Performed By: #### 2 65457 ####[facility],[address] [place] [address] Erythrocyte distribution width (RBC) [Ratio] 13.4 % Normal 12.0 - 15.6 [facility] Comment on above: Performed By: #### 2 43794 ####[facility],[address] [place] [address] Hematocrit (Bld) [Volume fraction] 38.4 % Normal 34.0 - 46.0 [facility] Comment on above: Performed By: #### 2 17605 ####[facility],[address] [place] [address] Hemoglobin (Bld) [Mass/Vol] 13.7 g/dL Normal 12.0 - 16.0 [facility] Comment on above: Performed By: #### 2 67913 ####[place] [address] Lymph # 2.75 x10EE3/UL Normal 0.80 - 2.80 [facility] Comment on above: Performed By: #### 2 76190 ####[place] [address] Lymphocytes/100 WBC (Bld) 30.0 % Normal 20.0 - 45.0 [facility] Comment on above: Performed By: #### 2 12526 ####[facility],[address] [place], [place] [address] MANUAL DIFF N/A Normal [facility] Comment on above: Performed By: #### 2 66685 ####[place] [address] MCH (RBC) [Entitic mass] 34 pg High 27 - 33 [facility] Comment on above: Performed By: #### 2 92699 ####[place] [address] MCHC 36 X10 3 Normal 32 - 36 [facility] Comment on above: Performed By: #### 2 61744 ####[facility],[address] [place] [address] 65315 MCV (RBC) [Entitic vol] 95 fL Normal 80 - 99 [facility] Comment on above: Performed By: #### 2 83258 ####[facility],[address] [place] [address] 46569 [place] # 0.71 x10EE3/UL Normal 0.20 - 1.00 [facility] Comment on above: Performed By: #### 2 75480 ####[facility],[address] [place] [address] 78359 MONOS % 7.7 % Normal 0.0 - 10.0 [facility] Comment on above: Performed By: #### 2 52168 ####[facility],[address] [place] [address] 20612 Morphology Efra (Bld) [Interp] N/A Normal [facility] Comment on above: Performed By: #### 2 73544 ####[facility],[address] [place] [address] 11308 Neut # 5.41 x10EE3/UL Normal 1.50 - 7.10 [facility] Comment on above: Performed By: #### 2 20179 ####[facility],[address] [place] [address] 25357 Neutrophils/100 WBC (Bld) 59.0 % Normal 46.0 - 76.0 [facility] Comment on above: Performed By: #### 2 82218 ####[facility],[address] [place] [address] 82986 PLATELET 347 x10EE3/UL Normal 150 - 450 [facility] Comment on above: Performed By: #### 2 81083 ####[facility],[address] [place] [address] 40544 Platelet mean volume (Bld) [Entitic vol] 6.8 fL Normal 6.6 - 10.5 [facility] Comment on above: Result Comment: AUTO MATED DIFFERENTIAL Performed By: #### 2 46506 ####[facility],[address] [place] [address] RBC 4.05 x 10EE6/UL Low 4.10 - 5.30 [facility] Comment on above: Performed By: #### 2 67250 ####[facility],[address] [place], [place] [address] WBC 9.2 x 10EE3/UL Normal 4.5 - 10.8 [facility] Comment on above: Performed By: #### 2 39983 ####[facility],[address] [place] [address] CT KUB (KIDNEY STONE PROTOCO L)on 03-05-2025 CT KUB (KIDNEY STONE PROTOCOL) Normal [facility] LACTATEon 03-05-2025 Lactate [Moles/Vol] 1.5 mmol/L Normal 0.4 - 2.0 [facility] Comment on above: Performed By: #### 2 33293 ####[facility],[address] [place] [address] URINALYSISon 03-05-2025 Amorphous 1+ Normal [facility] Comment on above: Performed By: #### 2 78524 ####[facility],[address] [place], [place] [address] Bacteria 3+ Normal [facility] Comment on above: Performed By: #### 2 51423 ####[facility],[address] [place] [address] 31666 Bilirubin Ql (U) Negative Normal NORMAL: NEGATIVE [facility] Comment on above: Performed By: #### 2 21494 ####[facility],[address] [place] [address] 58646 Casts NONE Normal [facility] Comment on above: Performed By: #### 2 99396 ####[facility],[address] [place] [address] Clarity (U) sl.cloudy Normal NORMAL: CLEAR [facility] Comment on above: Performed By: #### 2 67893 ####[facility],[address] [place], [place] [address] Color (U) p.yel Normal NORMAL: YELLOW [facility] Comment on above: Performed By: #### 2 06742 ####[facility],[address] [place], [place] [address] Crystals LM Nom (Urine sed) NONE Normal [facility] Comment on above: Performed By: #### 2 71464 ####[facility],[address] [place], [place] [address] Epi Cells FEW Normal [facility] Comment on above: Performed By: #### 2 50401 ####[facility],[address] [place], [place] [address] Glucose Ql (U) NORM Normal NORMAL: NORMAL [facility] Comment on above: Performed By: #### 2 67907 ####[facility],[address] [place] [address] 50749 Hemoglobin Ql (U) 50 Abnormal NORMAL: NEGATIVE [facility] Comment on above: Performed By: #### 2 08874 ####[facility],[address] [place] [address] 09442 Ketone Negative Normal NORMAL: NEGATIVE [facility] Comment on above: Performed By: #### 2 15588 ####[facility],[address] [place] [address] 42579 Leukocytes 500 Abnormal NORMAL: NEGATIVE [facility] Comment on above: Performed By: #### 2 32125 ####[facility],[address] [place] [address] 51719 Mucous NONE Normal [facility] Comment on above: Performed By: #### 2 14928 ####[facility],[address] [place] [address] 96278 Nitrite Ql (U) Negative Normal NORMAL: NEGATIVE [facility] Comment on above: Performed By: #### 2 40343 ####[facility],[address] [place] [address] pH (U) 7 [pH] Normal NORMAL: 5.0-8.0 [facility] Comment on above: Performed By: #### 2 98660 ####[facility],[address] [place] [address] Protein Ql (U) 30 Abnormal NORMAL: NEGATIVE [facility] Comment on above: Performed By: #### 2 20172 ####[facility],[address] [place] [address] Rbc 0-5 Normal 0-3/hpf [facility] Comment on above: Performed By: #### 2 29994 ####[facility],[address] [place] [address] Sp [place] 1.010 Normal NORMAL: 1.010-1.030 [facility] Comment on above: Performed By: #### 2 22926 ####[facility],[address] [place] [address] Specimen Type R Normal [facility] Comment on above: Performed By: #### 2 38146 ####[facility],[address] [place] [address] Urinalysis dipstick W Reflex Microscopic panel (U) SEE BELOW Normal [facility] Comment on above: Result Comment: MICR OSCOPIC Performed By: #### 2 30089 ####[facility],[address] [place] [address] Urobilinog NORM Normal NORMAL: NORMAL [facility] Comment on above: Performed By: #### 2 67918 ####[facility],[address] [place] [address] Wbc 26-50 Normal 0-5/hpf [facility] Comment on above: Performed By: #### 2 17124 ####[place] [address],[place] [address] Yeast NONE Normal [facility] Comment on above: Performed By: #### 2 43720 ####[facility],[address] [place] [address] 48035 .Auto Diffon 02-16-2025 Basophil, Absolute 0.1 10 3/mcL Normal 0.0-0.3 [facility] Comment on above: Performed By: #### A DIFF, CBC, BMP, ANEU, GFR ####[address] [address] Basophils/100 WBC (Bld) 0.7 % Normal 0.0-2.5 [facility] Comment on above: Performed By: #### A DIFF, CBC, BMP, ANEU, GFR ####[address] [address] Eosinophil, Absolute 0.3 10 3/mcL Normal 0.0-0.7 [facility] Comment on above: Performed By: #### A DIFF, CBC, BMP, ANEU, GFR ####[address] [address] Eosinophils/100 WBC (Bld) 4.1 % Normal 0.0-6.0 [facility] Comment on above: Performed By: #### A DIFF, CBC, BMP, ANEU, GFR ####[address] [address] Lymphocyte, Absolute 2.1 10 3/mcL Normal 0.9-4.3 [facility] Comment on above: Performed By: #### A DIFF, CBC, BMP, ANEU, GFR ####[address] [address] Lymphocytes/100 WBC (Bld) 28.4 % Normal 20.0-40.0 [facility] Comment on above: Performed By: #### A DIFF, CBC, BMP, ANEU, GFR ####[address] [address] Monocyte, Absolute 0.6 10 3/mcL Normal 0.1-1.4 [facility] Comment on above: Performed By: #### A DIFF, CBC, BMP, ANEU, GFR ####[place] [address] [place] [address] 14789 Monocytes/100 WBC (Bld) 8.2 % Normal 2.0-13.0 [facility] Comment on above: Performed By: #### A DIFF, CBC, BMP, ANEU, GFR ####[address] [address] Neutrophils/100 WBC (Bld) 58.6 % Normal 50.0-75.0 [facility] Comment on above: Performed By: #### A DIFF, CBC, BMP, ANEU, GFR ####[address] [address] .GFRon 02-16-2025 Estimated Glomerular Filtration Rate 98 ml/min/1.73sqm Normal [facility] Comment on above: Result Comment: Stages of Chronic Kidney Disease (CKD) Stage Description eGFR(ml/min/1.73 sq.m.) CKD 1 Normal kidney function or >=90 normal kindney function with possible kidney damage (ex. Proteinuria) CKD 2 Kidney damage with mild loss 60-89 of kidney function CKD 3a Mild to moderate loss of kidney 45-59 function CKD 3b Moderate to severe loss of 30-44 of kindey function CKD 4 Severe loss of kidney function 15-29 CKD 5 Kidney failure <15 Note: (go live 2024) the eGFR calculation was updated to the 2020 CKD-EPI creatinine equation without a race factor to calculate the eGFR results. Performed By: #### A DIFF, CBC, BMP, ANEU, GFR ####[address] [address] .NEUABSon 02-16-2025 Neutrophil, Absolute 4.3 10 3/mcL Normal 2.3-8.1 [facility] MAIN Comment on above: Performed By: #### A DIFF, CBC, BMP, ANEU, GFR ####[address] [address] BMPon 02-16-2025 BUN/Creatinine Ratio 8.8 ratio Low 10.0-22.0 [facility] Comment on above: Order Comment: hemol yzed 02/16/2025 07:26:12 EDT Performed By: #### A DIFF, CBC, BMP, ANEU, GFR ####[address] [address] Calcium [Mass/Vol] 10.0 mg/dL Normal 8.7-10.4 [facility] MAIN Comment on above: Order Comment: hemol yzed 02/16/2025 07:26:12 EDT Performed By: #### A DIFF, CBC, BMP, ANEU, GFR ####[address] [address] Chloride [Moles/Vol] 106 mmol/L Normal 98-110 [facility] Comment on above: Order Comment: hemol yzed 02/16/2025 07:26:12 EDT Performed By: #### A DIFF, CBC, BMP, ANEU, GFR ####[address] [address] CO2 [Moles/Vol] 27 mmol/L Normal 22-32 [facility] MAIN Comment on above: Order Comment: hemol yzed 02/16/2025 07:26:12 EDT Performed By: #### A DIFF, CBC, BMP, ANEU, GFR ####[address] [address] Creatinine [Mass/Vol] 0.80 mg/dL Normal 0.50-1.20 [facility] MAIN Comment on above: Order Comment: hemol yzed 02/16/2025 07:26:12 EDT Result Comment: Test ing performed on Connected analyzer using enzymatic creatinine methodology. Performed By: #### A DIFF, CBC, BMP, ANEU, GFR ####[address] [address] Electrolyte Balance 5.0 mEq/L Normal 4.0-15.0 [facility] MAIN Comment on above: Order Comment: hemol yzed 02/16/2025 07:26:12 EDT Performed By: #### A DIFF, CBC, BMP, ANEU, GFR ####[address] [address] Glucose [Mass/Vol] 89 mg/dL Normal 70-110 [facility] MAIN Comment on above: Order Comment: hemol yzed 02/16/2025 07:26:12 EDT Performed By: #### A DIFF, CBC, BMP, ANEU, GFR ####[place] [address] Potassium [Moles/Vol] 3.7 mmol/L Normal 3.5-5.0 [facility] MAIN Comment on above: Order Comment: hemol yzed 02/16/2025 07:26:12 EDT Performed By: #### A DIFF, CBC, BMP, ANEU, GFR ####[place] [address] Sodium [Moles/Vol] 138 mmol/L Normal 136-145 [facility] MAIN Comment on above: Order Comment: hemol yzed 02/16/2025 07:26:12 EDT Performed By: #### A DIFF, CBC, BMP, ANEU, GFR ####[place] [address] Urea nitrogen [Mass/Vol] 7.0 mg/dL Low 8.0-22.0 [facility] MAIN Comment on above: Order Comment: hemol yzed 02/16/2025 07:26:12 EDT Performed By: #### A DIFF, CBC, BMP, ANEU, GFR ####[place] [address] CBCon 02-16-2025 Erythrocyte distribution width (RBC) [Ratio] 14.1 % Normal 11.5-15.5 [facility] MAIN Comment on above: Performed By: #### A DIFF, CBC, BMP, ANEU, GFR ####[place] [address] Hematocrit (Bld) [Volume fraction] 43.1 % Normal 34.0-46.0 [facility] MAIN Comment on above: Performed By: #### A DIFF, CBC, BMP, ANEU, GFR ####[place] [address] Hgb 14.6 G/dL Normal 12.0-16.0 [facility] MAIN Comment on above: Performed By: #### A DIFF, CBC, BMP, ANEU, GFR ####[place] [address] MCH (RBC) [Entitic mass] 32.9 pg Normal 27.0-33.0 [facility] MAIN Comment on above: Performed By: #### A DIFF, CBC, BMP, ANEU, GFR ####[place] [address] MCHC 33.9 G/dL Normal 32.0-36.0 [facility] MAIN Comment on above: Performed By: #### A DIFF, CBC, BMP, ANEU, GFR ####[place] [address] MCV (RBC) [Entitic vol] 97.2 fL Normal 80.0-99.0 [facility] MAIN Comment on above: Performed By: #### A DIFF, CBC, BMP, ANEU, GFR ####[place] [address] Platelet 296 10 3/mcL Normal 150-450 [facility] MAIN Comment on above: Performed By: #### A DIFF, CBC, BMP, ANEU, GFR ####[place] [address] Platelet mean volume (Bld) [Entitic vol] 7.5 fL Normal 6.6-10.5 [facility] MAIN Comment on above: Performed By: #### A DIFF, CBC, BMP, ANEU, GFR ####[place] [address] RBC 4.44 10 6/mcL Normal 4.10-5.30 [facility] MAIN Comment on above: Performed By: #### A DIFF, CBC, BMP, ANEU, GFR ####[place] [address] WBC 7.3 10 3/mcL Normal 4.5-10.8 [facility] MAIN Comment on above: Performed By: #### A DIFF, CBC, BMP, ANEU, GFR ####[place] [address] LABORATORYOrdered By: SYSTEM SYSTEM on 02-16-2025 Calcium [Mass/Vol] 10.0 mg/dL Normal 8.7 - 10. 4 mg/dL AH ADM SS Chloride [Moles/Vol] 106 mmol/L Normal 98 - 11 0 mEq/L AH ADM SS CO2 [Moles/Vol] 27 mmol/L Normal 22 - 32 mEq/L ADM SS Creatinine [Mass/Vol] 0.80 mg/dL Normal 0.50 - 1.20 mg/dL AH ADM SS Comment on above: Interpretive Data: T esting performed on Connected analyzer using enzymatic creatinine methodology. Electrolyte Balance 5.0 mEq/L Normal 4.0 - 15 .0 mEq/L ADM SS Estimated Glomerular Filtration Rate 98 ml/min/1.73sqm Invalid Interpretation Code Chemistry S Comment on above: Interpretive Data: Stages of Chronic Kidney Disease (CKD) Stage Description eGFR(ml/min/1.73 sq.m.) CKD 1 Normal kidney function or >=90 normal kindney function with possible kidney damage (ex. Proteinuria) CKD 2 Kidney damage with mild loss 60-89 of kidney function CKD 3a Mild to moderate loss of kidney 45-59 function CKD 3b Moderate to severe loss of 30-44 of kindey function CKD 4 Severe loss of kidney function 15-29 CKD 5 Kidney failure <15 Note: (go live 2024) the eGFR calculation was updated to the 2020 CKD-EPI creatinine equation without a race factor to calculate the eGFR results. Glucose [Mass/Vol] 89 mg/dL Normal 70 - 110 mg/dL ADM SS Potassium [Moles/Vol] 3.7 mmol/L Normal 3.5 - 5.0 mEq/L ADM SS Sodium [Moles/Vol] 138 mmol/L Normal 136 - 145 mEq/L ADM SS Urea nitrogen [Mass/Vol] 7.0 mg/dL Low 8.0 - 22.0 mg/dL ADM SS Urea nitrogen/Creatinine [Mass ratio] 8.8 ratio Low 10.0 - 22.0 ratio AH ADM SS Basophils (Bld) [#/Vol] 0.1 103/mcL Normal 0.0 - 0.3 10^3/mcL AH Workflow SS Basophils/100 WBC (Bld) 0.7 % Normal 0.0 - 2.5 % Workflow SS Eosinophils (Bld) [#/Vol] 0.3 103/mcL Normal 0.0 - 0.7 10^3/mcL AH Workflow SS Eosinophils/100 WBC (Bld) 4.1 % Normal 0.0 - 6.0 % Workflow SS Erythrocyte distribution width (RBC) [Ratio] 14.1 % Normal 11.5 - 15.5 % AH Workflow SS Hematocrit (Bld) [Volume fraction] 43.1 % Normal 34.0 - 46.0 % AH Workflow SS Hemoglobin (Bld) [Mass/Vol] 14.6 G/dL Normal 12.0 - 16.0 G/dL AH Workflow SS Lymphocytes (Bld) [#/Vol] 2.1 103/mcL Normal 0.9 - 4.3 10^3/mcL AH Workflow SS Lymphocytes/100 WBC (Bld) 28.4 % Normal 20.0 - 40.0 % AH Workflow SS MCH (RBC) [Entitic mass] 32.9 pg Normal 27.0 - 33.0 pg AH Workflow SS MCHC 33.9 G/dL Normal 32.0 - 36.0 G/dL AH Workflow SS MCV (RBC) [Entitic vol] 97.2 fL Normal 80.0 - 99.0 fL AH Workflow SS Monocytes (Bld) [#/Vol] 0.6 103/mcL Normal 0.1 - 1.4 10^3/mcL AH Workflow SS Monocytes/100 WBC (Bld) 8.2 % Normal 2.0 - 13.0 % AH Workflow SS Neutrophils (Bld) [#/Vol] 4.3 103/mcL Normal 2.3 - 8.1 10^3/mcL AH Workflow SS Neutrophils/100 WBC (Bld) 58.6 % Normal 50.0 - 75.0 % AH Workflow SS Platelet mean volume (Bld) [Entitic vol] 7.5 fL Normal 6.6 - 10.5 fL AH Workflow SS Platelets (Bld) [#/Vol] 296 103/mcL Normal 150 - 450 10^3/mcL Workflow SS RBC (Bld) [#/Vol] 4.44 106/mcL Normal 4.10 - 5.3 0 10^6/mcL AH Workflow SS WBC (Bld) [#/Vol] 7.3 103/mcL Normal 4.5 - 10.8 10^3/mcL AH Workflow SS LABORATORYOrdered By: Nell Gillespie on 02-16-2025 Beta HCG ( test) Ql (U) Negative (02/16/25 6:58 AM) [facility] Work Phone: CBC + DIFFon 02-10-2025 Baso # 0.03 x10EE3/UL Normal 0.00 - 0.10 [facility] Comment on above: Performed By: #### 2 30192 ####[place] [address] Basophils/100 WBC (Bld) 0.3 % Normal 0.0 - 2.0 [facility] Comment on above: Performed By: #### 2 40620 ####[place] [address] CBC + DIFF Normal [facility] Comment on above: Result Comment: CBC- COMPLETE BLOOD COUNT Performed By: #### 2 55288 ####[place] [address] EO # 0.11 x10EE3/UL Normal 0.00 - 0.50 [facility] Comment on above: Performed By: #### 2 36191 ####[place] [address] Eosinophils/100 WBC (Bld) 1.1 % Normal 0.0 - 7.0 [facility] Comment on above: Performed By: #### 2 42013 ####[place] [address] Erythrocyte distribution width (RBC) [Ratio] 13.3 % Normal 12.0 - 15.6 [facility] Comment on above: Performed By: #### 2 10063 ####[place] [address] Hematocrit (Bld) [Volume fraction] 41.1 % Normal 34.0 - 46.0 [facility] Comment on above: Performed By: #### 2 92608 ####[place] [address] Hemoglobin (Bld) [Mass/Vol] 14.7 g/dL Normal 12.0 - 16.0 [facility] Comment on above: Performed By: #### 2 52206 ####[address],[place] [address] Lymph # 3.18 x10EE3/UL High 0.80 - 2.80 [facility] Comment on above: Performed By: #### 2 08485 ####[facility],[address] [place] [address] Lymphocytes/100 WBC (Bld) 29.2 % Normal 20.0 - 45.0 [facility] Comment on above: Performed By: #### 2 12710 ####[facility],[address] [place] [address] MANUAL DIFF N/A Normal [facility] Comment on above: Performed By: #### 2 52728 ####[facility],[address] [place] [address] MCH (RBC) [Entitic mass] 34 pg High 27 - 33 [facility] Comment on above: Performed By: #### 2 90149 ####[facility],[address] [place] [address] MCHC 36 X10 3 Normal 32 - 36 [facility] Comment on above: Performed By: #### 2 09953 ####[facility],[address] [place], [place] [address] MCV (RBC) [Entitic vol] 96 fL Normal 80 - 99 [facility] Comment on above: Performed By: #### 2 61617 ####[facility],[address] [place] [address] [place] # 0.64 x10EE3/UL Normal 0.20 - 1.00 [facility] Comment on above: Performed By: #### 2 43583 ####[facility],[address] [place] [address] MONOS % 5.9 % Normal 0.0 - 10.0 [facility] Comment on above: Performed By: #### 2 39382 ####[facility],[address] [place], [place] [id number] Morphology Efra (Bld) [Interp] N/A Normal [facility] Comment on above: Performed By: #### 2 13373 ####[facility],[address] [place] [address] Neut # 6.90 x10EE3/UL Normal 1.50 - 7.10 [facility] Comment on above: Performed By: #### 2 85003 ####[facility],[address] [place] [address] Neutrophils/100 WBC (Bld) 63.5 % Normal 46.0 - 76.0 [facility] Comment on above: Performed By: #### 2 09184 ####[facility],[address] [place] [address] PLATELET 320 x10EE3/UL Normal 150 - 450 [facility] Comment on above: Performed By: #### 2 51587 ####[facility],[address] [place] [address] Platelet mean volume (Bld) [Entitic vol] 6.6 fL Normal 6.6 - 10.5 [facility] Comment on above: Result Comment: AUTO MATED DIFFERENTIAL Performed By: #### 2 14238 ####[address] [address] RBC 4.29 x 10EE6/UL Normal 4.10 - 5.30 [facility] Comment on above: Performed By: #### 2 83231 ####[facility],[address] [place] [address] WBC 10.9 x 10EE3/UL High 4.5 - 10.8 [facility] Comment on above: Performed By: #### 2 00505 ####[facility],[address] [place] [address] CMP with eGFRon 02-10-2025 AGE 34 years Normal [facility] Comment on above: Performed By: #### 2 60364 ####[address],[place] [address] Albumin [Mass/Vol] 4.0 g/dL Normal 3.4 - 5.0 [facility] Comment on above: Performed By: #### 2 11045 ####[facility],[address] [place] [address] Albumin/Globulin [Mass ratio] 1.3 {ratio} Normal 0.9 - 1.6 [facility] Comment on above: Performed By: #### 2 00254 ####[facility],[address] [place] [address] ALK PHOS 73 U/L Normal 46 - 116 [facility] Comment on above: Performed By: #### 2 44256 ####[facility],[address] [place] [address] ALT [Catalytic activity/Vol] 13 U/L Low 16 - 63 [facility] Comment on above: Performed By: #### 2 11768 ####[facility],[address] [place] [address] Anion gap [Moles/Vol] 17 mmol/L Normal 10 - 20 [facility] Comment on above: Performed By: #### 2 28393 ####[facility],[address] [place] [address] AST [Catalytic activity/Vol] 11 U/L Low 13 - 39 [facility] Comment on above: Performed By: #### 2 36970 ####[facility],[address] [place] [address] B/C RATIO 12 ratio Normal 0 - 30 [facility] Comment on above: Performed By: #### 2 61557 ####[facility],[address] [place] [address] Bilirubin [Mass/Vol] 0.6 mg/dL Normal 0.2 - 1.0 [facility] Comment on above: Performed By: #### 2 35066 ####[facility],[address] [place] [address] Calcium [Mass/Vol] 9.5 mg/dL Normal 8.5 - 10.1 [facility] Comment on above: Performed By: #### 2 61511 ####[facility],[address] [place] [address] Chloride [Moles/Vol] 100 mmol/L Normal 98 - 107 [facility] Comment on above: Performed By: #### 2 20238 ####[facility],[address] [place] [address] CMP with eGFR Normal [facility] Comment on above: Result Comment: COMP REHENSIVE METABOLIC PANEL Performed By: #### 2 86128 ####[facility],[address] [place] [address] CO2 [Moles/Vol] 25.6 mmol/L Normal 21.0 - 32.0 [facility] Comment on above: Performed By: #### 2 84659 ####[facility],[address] [place] [address] Creatinine [Mass/Vol] 1.10 mg/dL High 0.55 - 1.02 [facility] Comment on above: Performed By: #### 2 41770 ####[facility],[address] [place] [address] eGFR 56 ML/MINUTE Low 60 - 999 [facility] Comment on above: Performed By: #### 2 13438 ####[facility],[address] [place] [address] GFR/1.73 sq M.predicted among non-blacks MDRD (S/P/Bld) [Vol rate/Area] mL/min/{1.73_m2} Normal 60 - 999 [facility] Comment on above: Result Comment: ACCO RDING TO THE NATIONAL KIDNEY DISEASE EDUCATION PROGRAM(NKDE), A NORMAL eGFRIS A VALUE GREATER THAN OR EQUAL TO 60 ML/MIN/1.73 SQ METERS.CHRONIC KIDNEY DISEASE: <60mL/MIN/1.73 SQ METERSKIDNEY FAILURE: <15mL/MIN/1.73 SQ METERSTHIS TEST SHOULD ONLY BE USED FOR PATIENTS 18 YEARS OF AGE AND OLDER. Performed By: #### 2 39867 ####[facility],[address] [place] [address] Globulin (S) [Mass/Vol] 3.2 g/dL Normal 1.5 - 3.8 [facility] Comment on above: Performed By: #### 2 58559 ####[facility],[address] [place] [address] Glucose [Mass/Vol] 72 mg/dL Low 74 - 106 [facility] Comment on above: Performed By: #### 2 99872 ####[facility],[address] [place] [address] Potassium [Moles/Vol] 3.4 mmol/L Low 3.5 - 5.1 [facility] Comment on above: Performed By: #### 2 51318 ####[facility],[address] [place] [address] Protein [Mass/Vol] 7.2 g/dL Normal 6.4 - 8.2 [facility] Comment on above: Performed By: #### 2 68546 ####[facility],[address] [place] [address] Sodium [Moles/Vol] 139 mmol/L Normal 136 - 145 [facility] Comment on above: Performed By: #### 2 09703 ####[facility],[address] [place] [address] Urea nitrogen [Mass/Vol] 13 mg/dL Normal 7 - 18 [facility] Comment on above: Performed By: #### 2 04147 ####[facility],[address] [place] [address] ABDOMEN/PELVIS WOon 02-10 CT ABDOMEN/PELVIS WO Normal [facility] ED MED ADMINISTRATION DETAIL on 02-10-2025 ED MED ADMINISTRATION DETAIL Normal [facility] ED NURSES CLINICAL NOTEon ED NURSES CLINICAL NOTE Normal [facility] ED ORDER SHEET (CPOE ONLY)on 02-10-2025 ED ORDER SHEET (CPOE ONLY) Normal [facility] ED PHYSICIAN CLINICAL REPORT on 02-10-2025 ED PHYSICIAN CLINICAL REPORT Normal [facility] ED SUPER BILLon 02-10-2025 ED SUPER BILL Normal [facility] ED VISIT SUMMARYon ED VISIT SUMMARY Normal [facility] ED VITALS FLOW SHEETon 02-10 ED VITALS FLOW SHEET Normal [facility] LACTATEon 02-10-2025 Lactate [Moles/Vol] 0.7 mmol/L Normal 0.4 - 2.0 [facility] Comment on above: Performed By: #### 2 96049 ####[facility],[address] [place] [address] URINALYSISon 02-10-2025 Amorphous NONE Normal [facility] Comment on above: Performed By: #### 2 31920 ####[facility],[address] [place] [address] Bacteria 3+ Normal [facility] Comment on above: Performed By: #### 2 98714 ####[facility],[address] [place] [address] Bilirubin Ql (U) Negative Normal NORMAL: NEGATIVE [facility] Comment on above: Performed By: #### 2 08849 ####[facility],[address] [place] [address] Casts NONE Normal [facility] Comment on above: Performed By: #### 2 78412 ####[facility],[address] [place] [address] Clarity (U) sl.cloudy Normal NORMAL: CLEAR [facility] Comment on above: Performed By: #### 2 66697 ####[facility],[address] [place] [address] Color (U) yellow Normal NORMAL: YELLOW [facility] Comment on above: Performed By: #### 2 74629 ####[facility],[address] [place], [place] [address] Crystals LM Nom (Urine sed) NONE Normal [facility] Comment on above: Performed By: #### 2 54094 ####[facility],[address] [place], [place] [address] Epi Cells OCC Normal [facility] Comment on above: Performed By: #### 2 24644 ####[facility],[address] [place] [address] Glucose Ql (U) NORM Normal NORMAL: NORMAL [facility] Comment on above: Performed By: #### 2 98021 ####[facility],[address] [place] [address] Hemoglobin Ql (U) 250 Abnormal NORMAL: NEGATIVE [facility] Comment on above: Performed By: #### 2 86516 ####[facility],[address] [place], [place] [address] Ketone Negative Normal NORMAL: NEGATIVE [facility] Comment on above: Performed By: #### 2 63282 ####[facility],[address] [place] [address] Leukocytes 500 Abnormal NORMAL: NEGATIVE [facility] Comment on above: Performed By: #### 2 14382 ####[facility],[address] [place], [place] [address] Mucous NONE Normal [facility] Comment on above: Performed By: #### 2 52319 ####[facility],[address] [place] [address] Nitrite Ql (U) Negative Normal NORMAL: NEGATIVE [facility] Comment on above: Performed By: #### 2 16166 ####[facility],[address] [place] [address] pH (U) 8 [pH] Normal NORMAL: 5.0-8.0 [facility] Comment on above: Performed By: #### 2 22272 ####[facility],[address] [place] [address] Protein Ql (U) 100 Abnormal NORMAL: NEGATIVE [facility] Comment on above: Performed By: #### 2 27736 ####[facility],[address] [place] [address] Rbc TNTC Normal 0-3/hpf [facility] Comment on above: Performed By: #### 2 64365 ####[facility],[address] [place] [address] Sp [place] 1.015 Normal NORMAL: 1.010-1.030 [facility] Comment on above: Performed By: #### 2 23999 ####[facility],[address] [place] [address] Specimen Type R Normal [facility] Comment on above: Performed By: #### 2 68030 ####[facility],[address] [place] [address] Urinalysis dipstick W Reflex Microscopic panel (U) SEE BELOW Normal [facility] Comment on above: Result Comment: MICR OSCOPIC Performed By: #### 2 21721 ####[facility],[address] [place], [place] [address] Urobilinog NORM Normal NORMAL: NORMAL [facility] Comment on above: Performed By: #### 2 80312 ####[facility],[address] [place], [place] [address] WBC (U) [#/Vol] /uL Normal 0-5/hpf [facility] Comment on above: Performed By: #### 2 00743 ####[facility],[address] [place] [address] Yeast NONE Normal [facility] Comment on above: Performed By: #### 2 49109 ####[facility],[address] [place] [address] Amorphous NONE Normal [facility] Comment on above: Performed By: #### 2 37608 ####[facility],[address] [place] [address]3874 Bacteria TRACE Normal [facility] Comment on above: Performed By: #### 2 56509 ####[facility],[address] [place] [address]33 Bilirubin Ql (U) Negative Normal NORMAL: NEGATIVE [facility] Comment on above: Performed By: #### 2 38584 ####[facility],[address] [place], [place] [address] Casts NONE Normal [facility] Comment on above: Performed By: #### 2 53501 ####[facility],[address] [place], [place] [address] Clarity (U) sl.cloudy Normal NORMAL: CLEAR [facility] Comment on above: Performed By: #### 2 60519 ####[facility],[address] [place] [address]65[address] Color (U) alanna Normal NORMAL: YELLOW [facility] Comment on above: Performed By: #### 2 10764 ####[facility],[address] [place] [address] 83513 Crystals LM Nom (Urine sed) NONE Normal [facility] Comment on above: Performed By: #### 2 94221 ####[facility],[address] [place] [address] 41844 Epi Cells MANY Normal [facility] [facility] Comment on above: Performed By: #### 2 58761 ####[facility],[address] [place] [address] 83513 Glucose Ql (U) NORM Normal NORMAL: NORMAL [facility] Comment on above: Performed By: #### 2 63424 ####[facility],[address] [place] [address] 90970 Hemoglobin Ql (U) 25 Abnormal NORMAL: NEGATIVE [facility] Comment on above: Performed By: #### 2 86405 ####[facility],[address] [place] [address] 25203 Ketone Negative Normal NORMAL: NEGATIVE [facility] Comment on above: Performed By: #### 2 74546 ####[facility],[address] [place] [address] 94540 Leukocytes Negative Normal NORMAL: NEGATIVE [facility] Comment on above: Performed By: #### 2 68746 ####[facility],[address] [place] [address] 75244 Mucous NONE Normal [facility] Comment on above: Performed By: #### 2 01256 ####[facility],[address] [place] [address] 01663 Nitrite Ql (U) Negative Normal NORMAL: NEGATIVE [facility] Comment on above: Performed By: #### 2 08429 ####[facility],[address] [place] [address] 22971 pH (U) 5 [pH] Normal NORMAL: 5.0-8.0 [facility] Comment on above: Performed By: #### 2 57045 ####[facility],[address] [place] [address] 13892 Protein Ql (U) 30 Abnormal NORMAL: NEGATIVE [facility] Comment on above: Performed By: #### 2 38297 ####[facility],[address] [place] [address] 47372 Rbc 0-5 Normal 0-3/hpf [facility] Comment on above: Performed By: #### 2 14147 ####[facility],[address] [place] [address] 92091 Sp [place] 1.025 Normal NORMAL: 1.010-1.030 [facility] Comment on above: Performed By: #### 2 48620 ####[facility],[address] [place] [address] 89538 Specimen Type R Normal [facility] Comment on above: Performed By: #### 2 92116 ####[facility],[address] [place] [address] 89294 Urinalysis dipstick W Reflex Microscopic panel (U) SEE BELOW Normal [facility] Comment on above: Result Comment: MICR OSCOPIC Performed By: #### 2 57341 ####[facility],[address] [place] [address] 86481 Urobilinog 1 Abnormal NORMAL: NORMAL [facility] Comment on above: Performed By: #### 2 51678 ####[facility],[address] [place] [address] 47704 Wbc 1-5 Normal 0-5/hpf [facility] Comment on above: Performed By: #### 2 36850 ####[facility],[address] [place] [address] 77600 Yeast NONE Normal [facility] Comment on above: Performed By: #### 2 98184 ####[facility],[address] [place] [address] 14819 URINE CULTURE [CCL]on 2024 Bacteria identified Cx Nom (U) Normal [facility] Comment on above: Performed By: #### 2 62833 ####[facility],[address] [place] [address] 73982 Bacteria identified Cx Nom (U) Normal [facility] Comment on above: Performed By: #### 2 04847 ####[facility],[address] [place] [address] 77416 URINE CULTURE [CCL]on 2024 Bacteria identified Cx Nom (U) Normal [facility] Comment on above: Performed By: #### 2 09874 ####[facility],[address] [place] [address] 94532 CBC + DIFFon 01-29-2025 BANDS 2 % Normal 0 - 5 [facility] Comment on above: Performed By: #### 2 87706 ####[facility],[address] [place] [address] 71924 Baso # 0.04 x10EE3/UL Normal 0.00 - 0.10 [facility] Comment on above: Performed By: #### 2 01337 ####[facility],[address] [place] [address] 93938 Basophils/100 WBC (Bld) 0.2 % Normal 0.0 - 2.0 [facility] Comment on above: Performed By: #### 2 15018 ####[facility],[address] [place] [address] 11208 CBC + DIFF Normal [facility] Comment on above: Result Comment: CBC- COMPLETE BLOOD COUNT Performed By: #### 2 83207 ####[facility],[address] [place] [address] EO # 0.12 x10EE3/UL Normal 0.00 - 0.50 [facility] Comment on above: Performed By: #### 2 44120 ####[facility],[address] [place] [address] 32912 Eosinophils/100 WBC (Bld) 0.7 % Normal 0.0 - 7.0 [facility] Comment on above: Performed By: #### 2 75350 ####[facility],[address] [place] [address] 55570 Erythrocyte distribution width (RBC) [Ratio] 13.6 % Normal 12.0 - 15.6 [facility] Comment on above: Performed By: #### 2 73775 ####[facility],[address] [place] [address] 91046 Hematocrit (Bld) [Volume fraction] 43.6 % Normal 34.0 - 46.0 [facility] Comment on above: Performed By: #### 2 55601 ####[facility],[address] [place] [address] 65499 Hemoglobin (Bld) [Mass/Vol] 15.2 g/dL Normal 12.0 - 16.0 [facility] Comment on above: Performed By: #### 2 43939 ####[facility],[address] [place] [address] Lymph # 0.83 x10EE3/UL Normal 0.80 - 2.80 [facility] Comment on above: Performed By: #### 2 43521 ####[facility],[address] [place] [address] 34428 Lymphocytes/100 WBC (Bld) 4.8 % Low 20.0 - 45.0 [facility] Comment on above: Performed By: #### 2 14259 ####[facility],[address] [place], [place] [address] Lymphocytes/100 WBC (Bld) 4 % Low 20 - 45 [facility] Comment on above: Performed By: #### 2 06735 ####[facility],[address] [place] [address] MANUAL DIFF SEE BELOW Normal [facility] Comment on above: Performed By: #### 2 32204 ####[facility],[address] [place] [address] MCH (RBC) [Entitic mass] 34 pg High 27 - 33 [facility] Comment on above: Performed By: #### 2 70604 ####[facility],[address] [place] [address] MCHC 35 X10 3 Normal 32 - 36 [facility] Comment on above: Performed By: #### 2 92084 ####[facility],[address] [place] [address] 99548 MCV (RBC) [Entitic vol] 98 fL Normal 80 - 99 [facility] Comment on above: Performed By: #### 2 95348 ####[facility],[address] [place] [address] [place] # 1.74 x10EE3/UL High 0.20 - 1.00 [facility] Comment on above: Performed By: #### 2 55073 ####[facility],[address] [place] [address] 59718 MONOS 11 % High 0 - 10 [facility] Comment on above: Performed By: #### 2 29123 ####[facility],[address] [place] [address] 68999 MONOS % 10.0 % Normal 0.0 - 10.0 [facility] Comment on above: Performed By: #### 2 11056 ####[facility],[address] [place] [address] 25157 Morphology Efra (Bld) [Interp] REVIEWED Normal [facility] Comment on above: Performed By: #### 2 44990 ####[facility],[address] [place] [address] 74256 Neut # 14.65 x10EE3/UL High 1.50 - 7.10 [facility] Comment on above: Performed By: #### 2 88214 ####[facility],[address] [place] [address] 07507 Neutrophils/100 WBC (Bld) 84.3 % High 46.0 - 76.0 [facility] Comment on above: Performed By: #### 2 40131 ####[facility],[address] [place] [address] 89144 PLATELET 437 x10EE3/UL Normal 150 - 450 [facility] Comment on above: Performed By: #### 2 19903 ####[facility],[address] [place] [address] 82597 Platelet mean volume (Bld) [Entitic vol] 8.2 fL Normal 6.6 - 10.5 [facility] Comment on above: Result Comment: AUTO MATED DIFFERENTIAL Performed By: #### 2 93345 ####[facility],[address] [place] [address] 98372 RBC 4.47 x 10EE6/UL Normal 4.10 - 5.30 [facility] Comment on above: Performed By: #### 2 80813 ####[facility],[address] [place] [address] 38417 SEGS 83 % High 46 - 76 [facility] Comment on above: Performed By: #### 2 27352 ####[facility],[address] [place] [address] 51494 WBC 17.4 x 10EE3/UL High 4.5 - 10.8 [facility] Comment on above: Performed By: #### 2 65445 ####[facility],[address] [place] [address] 37870 CMP with eGFRon 01-29-2025 AGE 34 years Normal [facility] Comment on above: Performed By: #### 2 30969 ####[facility],[address] [place] [address] 62152 Albumin [Mass/Vol] 4.1 g/dL Normal 3.4 - 5.0 [facility] Comment on above: Performed By: #### 2 23352 ####[facility],[address] [place] [address] 45810 Albumin/Globulin [Mass ratio] 1.4 {ratio} Normal 0.9 - 1.6 [facility] Comment on above: Performed By: #### 2 32684 ####[facility],[address] [place] [address] 77765 ALK PHOS 91 U/L Normal 46 - 116 [facility] Comment on above: Performed By: #### 2 06874 ####[facility],[address] [place] [address] 13562 ALT [Catalytic activity/Vol] 19 U/L Normal 16 - 63 [facility] Comment on above: Performed By: #### 2 35762 ####[facility],[address] [place] [address] 83833 Anion gap [Moles/Vol] 15 mmol/L Normal 10 - 20 [facility] Comment on above: Performed By: #### 2 79471 ####[facility],[address] [place] [address] 33056 AST [Catalytic activity/Vol] 14 U/L Normal 13 - 39 [facility] Comment on above: Performed By: #### 2 92281 ####[facility],[address] [place] [address] 73101 B/C RATIO 10 ratio Normal 0 - 30 [facility] Comment on above: Performed By: #### 2 03508 ####[facility],[address] [place] [address] 08154 Bilirubin [Mass/Vol] 0.4 mg/dL Normal 0.2 - 1.0 [facility] Comment on above: Performed By: #### 2 23891 ####[facility],[address] [place] [address] 33470 Calcium [Mass/Vol] 9.4 mg/dL Normal 8.5 - 10.1 [facility] Comment on above: Performed By: #### 2 85129 ####[facility],[address] [place] [address] 73739 Chloride [Moles/Vol] 106 mmol/L Normal 98 - 107 [facility] Comment on above: Performed By: #### 2 66693 ####[facility],[address] [place] [address] 12605 CMP with eGFR Normal [facility] Comment on above: Result Comment: COMP REHENSIVE METABOLIC PANEL Performed By: #### 2 36494 ####[facility],[address] [place] [address] 44281 CO2 [Moles/Vol] 24.0 mmol/L Normal 21.0 - 32.0 [facility] Comment on above: Performed By: #### 2 64623 ####[facility],[address] [place] [address] 94484 Creatinine [Mass/Vol] 1.01 mg/dL Normal 0.55 - 1.02 [facility] Comment on above: Performed By: #### 2 97905 ####[facility],[address] [place] [address] 70085 GFR/1.73 sq M.predicted among non-blacks MDRD (S/P/Bld) [Vol rate/Area] mL/min/{1.73_m2} Normal 60 - 999 [facility] Comment on above: Performed By: #### 2 31256 ####[facility],[address] [place] [address] 19673 Result Comment: ACCO RDING TO THE NATIONAL KIDNEY DISEASE EDUCATION PROGRAM(NKDE), A NORMAL eGFRIS A VALUE GREATER THAN OR EQUAL TO 60 ML/MIN/1.73 SQ METERS.CHRONIC KIDNEY DISEASE: <60mL/MIN/1.73 SQ METERSKIDNEY FAILURE: <15mL/MIN/1.73 SQ METERSTHIS TEST SHOULD ONLY BE USED FOR PATIENTS 18 YEARS OF AGE AND OLDER. Globulin (S) [Mass/Vol] 3.0 g/dL Normal 1.5 - 3.8 [facility] Comment on above: Performed By: #### 2 24205 ####[facility],[address] [place] [address] 62561 Glucose [Mass/Vol] 166 mg/dL High 74 - 106 [facility] Comment on above: Performed By: #### 2 96632 ####[facility],[address] [place] [address] 05175 Potassium [Moles/Vol] 3.3 mmol/L Low 3.5 - 5.1 [facility] Comment on above: Performed By: #### 2 40937 ####[facility],[address] [place] [address] 51298 Protein [Mass/Vol] 7.1 g/dL Normal 6.4 - 8.2 [facility] Comment on above: Performed By: #### 2 77584 ####[facility],[address] [place] [address] 22010 Sodium [Moles/Vol] 142 mmol/L Normal 136 - 145 [facility] Comment on above: Performed By: #### 2 63796 ####[facility],[address] [place] [address] Urea nitrogen [Mass/Vol] 10 mg/dL Normal 7 - 18 [facility] Comment on above: Performed By: #### 2 39126 ####[facility],[address] [place] [address] ED MED ADMINISTRATION DETAIL on 01-29-2025 ED MED ADMINISTRATION DETAIL Normal [facility] ED NURSES CLINICAL NOTEon ED NURSES CLINICAL NOTE Normal [facility] ED ORDER SHEET (CPOE ONLY)on 01-29-2025 ED ORDER SHEET (CPOE ONLY) Normal [facility] ED PHYSICIAN CLINICAL REPORT on 01-29-2025 ED PHYSICIAN CLINICAL REPORT Normal [facility] ED PHYSICIAN DISCHARGE REPOR Ton 01-29-2025 ED PHYSICIAN DISCHARGE REPORT Normal [facility] ED SUPER BILLon 01-29-2025 ED SUPER BILL Normal [facility] ED VISIT SUMMARYon ED VISIT SUMMARY Normal [facility] ED VITALS FLOW SHEETon 01-29 ED VITALS FLOW SHEET Normal [facility] SERUM QUALon 01-29 EXTERNAL QC DONE? YES Normal [facility] Comment on above: Performed By: #### 2 01061 ####[facility],[address] [place] [address] INTERNAL QC PASS Normal [facility] Comment on above: Performed By: #### 2 65868 ####[facility],[address] [place], [place] [id number] SER Negative Normal NEGATIVE [facility] Comment on above: Performed By: #### 2 26376 ####[facility],[address] [place], [place] [address] URINALYSISon 01-29-2025 Amorphous NONE Normal [facility] Comment on above: Performed By: #### 2 34191 ####[facility],[address] [place] [address] 42635 Bacteria TRACE Normal [facility] Comment on above: Performed By: #### 2 23388 ####[facility],[address] [place] [address] 58110 Bilirubin Ql (U) Negative Normal NORMAL: NEGATIVE [facility] Comment on above: Performed By: #### 2 40094 ####[facility],[address] [place], [place] [address] Casts NONE Normal [facility] Comment on above: Performed By: #### 2 42381 ####[facility],[address] [place], [place] [address] Clarity (U) SL. CLOUDY Abnormal NORMAL: CLEAR [facility] Comment on above: Performed By: #### 2 66307 ####[facility],[address] [place], [place] [address] Color (U) p.yel Normal NORMAL: YELLOW [facility] Comment on above: Performed By: #### 2 89957 ####[facility],[address] [place] [address] 91719 Crystals LM Nom (Urine sed) NONE Normal [facility] Comment on above: Performed By: #### 2 73937 ####[facility],[address] [place] [address] 34995 Epi Cells NONE Normal [facility] Comment on above: Performed By: #### 2 27495 ####[facility],[address] [place] [address] 33374 Glucose Ql (U) NORM Normal NORMAL: NORMAL [facility] Comment on above: Performed By: #### 2 11184 ####[facility],[address] [place] [address] 32603 Hemoglobin Ql (U) 150 Abnormal NORMAL: NEGATIVE [facility] Comment on above: Performed By: #### 2 75878 ####[facility],[address] [place] [address] 25318 Ketone Negative Normal NORMAL: NEGATIVE [facility] Comment on above: Performed By: #### 2 65314 ####[facility],[address] [place] [address] 12066 Leukocytes 500 Abnormal NORMAL: NEGATIVE [facility] Comment on above: Performed By: #### 2 39361 ####[facility],[address] [place] [address] 39890 Mucous NONE Normal [facility] Comment on above: Performed By: #### 2 76891 ####[facility],[address] [place] [address] 77174 Nitrite Ql (U) Negative Normal NORMAL: NEGATIVE [facility] Comment on above: Performed By: #### 2 86021 ####[facility],[address] [place] [address] 35688 pH (U) 7 [pH] Normal NORMAL: 5.0-8.0 [facility] Comment on above: Performed By: #### 2 66645 ####[facility],[address] [place] [address] 58811 Protein Ql (U) 15 Abnormal NORMAL: NEGATIVE [facility] Comment on above: Performed By: #### 2 06190 ####[facility],[address] [place] [address] 47170 Rbc 5-10 Normal 0-3/hpf [facility] Comment on above: Performed By: #### 2 25728 ####[facility],[address] [place] [address] 28295 Sp [place] 1.010 Normal NORMAL: 1.010-1.030 [facility] Comment on above: Performed By: #### 2 94679 ####[facility],[address] [place] [address] 62051 Specimen Type R Normal [facility] Comment on above: Performed By: #### 2 94235 ####[facility],[address] [place] [address] Urinalysis dipstick W Reflex Microscopic panel (U) SEE BELOW Normal [facility] Comment on above: Result Comment: MICR OSCOPIC Performed By: #### 2 00564 ####[facility],[address] [place] [address] Urobilinog NORM Normal NORMAL: NORMAL [facility] Comment on above: Performed By: #### 2 39364 ####[facility],[address] [place] [address] Wbc 16-25 Normal 0-5/hpf [facility] Comment on above: Performed By: #### 2 22191 ####[facility],[address] [place] [address] Yeast 1+ Normal [facility] Comment on above: Performed By: #### 2 87128 ####[facility],[address] [place] [address] CBC + DIFFon 01-21-2025 Baso # 0.03 x10EE3/UL Normal 0.00 - 0.10 [facility] Comment on above: Performed By: #### 2 43289 ####[facility],[address] [place] [address] Basophils/100 WBC (Bld) 0.3 % Normal 0.0 - 2.0 [facility] Comment on above: Performed By: #### 2 49403 ####[facility],[address] [place] [address] CBC + DIFF Normal [facility] Comment on above: Result Comment: CBC- COMPLETE BLOOD COUNT Performed By: #### 2 24057 ####[place] [address] EO # 0.06 x10EE3/UL Normal 0.00 - 0.50 [facility] Comment on above: Performed By: #### 2 71129 ####[facility],[address] [place] [address] Eosinophils/100 WBC (Bld) 0.5 % Normal 0.0 - 7.0 [facility] Comment on above: Performed By: #### 2 33755 ####[facility],[address] [place] [address] Erythrocyte distribution width (RBC) [Ratio] 13.7 % Normal 12.0 - 15.6 [facility] Comment on above: Performed By: #### 2 01956 ####[facility],[address] [place] [address] Hematocrit (Bld) [Volume fraction] 43.1 % Normal 34.0 - 46.0 [facility] Comment on above: Performed By: #### 2 80894 ####[facility],[address] [place] [address] Hemoglobin (Bld) [Mass/Vol] 14.8 g/dL Normal 12.0 - 16.0 [facility] Comment on above: Performed By: #### 2 56582 ####[facility],[address] [place] [address] Lymph # 1.74 x10EE3/UL Normal 0.80 - 2.80 [facility] Comment on above: Performed By: #### 2 35505 ####[facility],[address] [place], [place] [address] Lymphocytes/100 WBC (Bld) 12.8 % Low 20.0 - 45.0 [facility] Comment on above: Performed By: #### 2 42104 ####[facility],[address] [place] [address] MANUAL DIFF N/A Normal [facility] Comment on above: Performed By: #### 2 72293 ####[facility],[address] [place], [place] [address] MCH (RBC) [Entitic mass] 34 pg High 27 - 33 [facility] Comment on above: Performed By: #### 2 17380 ####[facility],[address] [place] [address] 37388 MCHC 34 X10 3 Normal 32 - 36 [facility] Comment on above: Performed By: #### 2 63289 ####[facility],[address] [place] [address] 86251 MCV (RBC) [Entitic vol] 97 fL Normal 80 - 99 [facility] Comment on above: Performed By: #### 2 64389 ####[facility],[address] [place] [address] [place] # 1.16 x10EE3/UL High 0.20 - 1.00 [facility] Comment on above: Performed By: #### 2 34597 ####[facility],[address] [place] [address] 20740 MONOS % 8.6 % Normal 0.0 - 10.0 [facility] Comment on above: Performed By: #### 2 40867 ####[facility],[address] [place] [address] 65899 Morphology Efra (Bld) [Interp] N/A Normal [facility] Comment on above: Performed By: #### 2 72904 ####[facility],[address] [place] [address] 24392 Neut # 10.59 x10EE3/UL High 1.50 - 7.10 [facility] Comment on above: Performed By: #### 2 85964 ####[facility],[address] [place] [address] 92352 Neutrophils/100 WBC (Bld) 78.0 % High 46.0 - 76.0 [facility] Comment on above: Performed By: #### 2 99533 ####[facility],[address] [place] [address] 98627 PLATELET 385 x10EE3/UL Normal 150 - 450 [facility] Comment on above: Performed By: #### 2 21495 ####[facility],[address] [place] [address] 47185 Platelet mean volume (Bld) [Entitic vol] 7.3 fL Normal 6.6 - 10.5 [facility] Comment on above: Result Comment: AUTO MATED DIFFERENTIAL Performed By: #### 2 41292 ####[facility],[address] [place] [address] 91631 RBC 4.43 x 10EE6/UL Normal 4.10 - 5.30 [facility] Comment on above: Performed By: #### 2 59938 ####[facility],[address] [place] [address] 05405 WBC 13.6 x 10EE3/UL High 4.5 - 10.8 [facility] Comment on above: Performed By: #### 2 88192 ####[facility],[address] [place], [place] [id number] CMP with eGFRon 01-21-2025 AGE 34 years Normal [facility] Comment on above: Performed By: #### 2 05621 ####[facility],[address] [place] [address] 63935 Albumin [Mass/Vol] 4.1 g/dL Normal 3.4 - 5.0 [facility] Comment on above: Performed By: #### 2 71361 ####[facility],[address] [place] [address] 89862 Albumin/Globulin [Mass ratio] 1.2 {ratio} Normal 0.9 - 1.6 [facility] Comment on above: Performed By: #### 2 36487 ####[facility],[address] [place] [address] 41166 ALK PHOS 77 U/L Normal 46 - 116 [facility] Comment on above: Performed By: #### 2 39199 ####[facility],[address] [place] [address] 96180 ALT [Catalytic activity/Vol] 13 U/L Low 16 - 63 [facility] Comment on above: Performed By: #### 2 73836 ####[facility],[address] [place] [address] 78122 Anion gap [Moles/Vol] 16 mmol/L Normal 10 - 20 [facility] Comment on above: Performed By: #### 2 17810 ####[facility],[address] [place] [address] 66348 AST [Catalytic activity/Vol] 13 U/L Normal 13 - 39 [facility] Comment on above: Performed By: #### 2 18117 ####[facility],[address] [place] [address] 48099 B/C RATIO 15 ratio Normal 0 - 30 [facility] Comment on above: Performed By: #### 2 02946 ####[facility],[address] [place] [address] 66970 Bilirubin [Mass/Vol] 0.4 mg/dL Normal 0.2 - 1.0 [facility] Comment on above: Performed By: #### 2 62526 ####[facility],[address] [place] [address] 91922 Calcium [Mass/Vol] 9.2 mg/dL Normal 8.5 - 10.1 [facility] Comment on above: Performed By: #### 2 22194 ####[facility],[address] [place] [address] 72220 Chloride [Moles/Vol] 103 mmol/L Normal 98 - 107 [facility] Comment on above: Performed By: #### 2 09643 ####[facility],[address] [place] [address] 11981 CMP with eGFR Normal [facility] Comment on above: Result Comment: COMP REHENSIVE METABOLIC PANEL Performed By: #### 2 94423 ####[facility],[address] [place] [address] 51251 CO2 [Moles/Vol] 23.4 mmol/L Normal 21.0 - 32.0 [facility] Comment on above: Performed By: #### 2 28522 ####[facility],[address] [place] [address] 83414 Creatinine [Mass/Vol] 0.87 mg/dL Normal 0.55 - 1.02 [facility] Comment on above: Performed By: #### 2 39571 ####[facility],[address] [place] [address] 95724 GFR/1.73 sq M.predicted among non-blacks MDRD (S/P/Bld) [Vol rate/Area] mL/min/{1.73_m2} Normal 60 - 999 [facility] Comment on above: Performed By: #### 2 09815 ####[facility],[address] [place] [address] 68583 Result Comment: ACCO RDING TO THE NATIONAL KIDNEY DISEASE EDUCATION PROGRAM(NKDE), A NORMAL eGFRIS A VALUE GREATER THAN OR EQUAL TO 60 ML/MIN/1.73 SQ METERS.CHRONIC KIDNEY DISEASE: <60mL/MIN/1.73 SQ METERSKIDNEY FAILURE: <15mL/MIN/1.73 SQ METERSTHIS TEST SHOULD ONLY BE USED FOR PATIENTS 18 YEARS OF AGE AND OLDER. Globulin (S) [Mass/Vol] 3.4 g/dL Normal 1.5 - 3.8 [facility] Comment on above: Performed By: #### 2 39555 ####[facility],[address] [place] [address] 96210 Glucose [Mass/Vol] 108 mg/dL High 74 - 106 [facility] Comment on above: Performed By: #### 2 56946 ####[facility],[address] [place] [address] 95272 Potassium [Moles/Vol] 3.2 mmol/L Low 3.5 - 5.1 [facility] Comment on above: Performed By: #### 2 30691 ####[facility],[address] [place] [address] 26532 Protein [Mass/Vol] 7.5 g/dL Normal 6.4 - 8.2 [facility] Comment on above: Performed By: #### 2 81364 ####[facility],[address] [place] [address] Sodium [Moles/Vol] 139 mmol/L Normal 136 - 145 [facility] Comment on above: Performed By: #### 2 34200 ####[facility],[address] [place] [address] Urea nitrogen [Mass/Vol] 13 mg/dL Normal 7 - 18 [facility] Comment on above: Performed By: #### 2 26580 ####[facility],[address] [place] [address] CORONAVIRUS (SARS) ANTIGEN T ESTon 01-21-2025 EXTERNAL QC DONE? YES Normal [facility] Comment on above: Performed By: #### 2 66289 ####[facility],[address] [place] [address] INTERNAL CONTROL PASS Normal [facility] Comment on above: Performed By: #### 2 21485 ####[facility],[address] [place] [address] SARS ANTIGEN Negative Normal NORMAL: NEGATIVE [facility] Comment on above: Performed By: #### 2 75745 ####[facility],[address] [place] [address] SEND TO ? NO Normal [facility] Comment on above: Result Comment: SARS -CoV-2THIS TEST IS BEING USED UNDER THE FDA EUA PROCEDURE. THIS ASSAY HAS BEENVALIDATED AT [facility] FOR USE WITH NASAL AND NASOPHARYNGEAL SWABSPECIMENS.INTERPRETIVE DATATEST RESULTS SHOULD ALWAYS BE CONSIDERED IN THE CONTEXT OF CLINICALOBSERVATIONS AND EPIDEMIOLOGICAL DATA IN MAKING FINAL DIAGNOSIS AND PATIENTMANAGEMENT DECISIONS. PATIENT MANAGEMENT SHOULD FOLLOW CURRENT CDC GUIDELINES.THE KRISTEN SARS ANTIGEN MAYNOR DOES NOT DIFFERENTIATE BETWEEN SARS-CoV & SARS-CoV-2.A POSITIVE TEST RESULT INDICATES THE PRESENCE OF SARS-CoV-2 NUCLEOCAPSID PROTEINANTIGEN, AND THE PATIENT IS INFECTED WITH THE VIRUS AND PRESUMED TO BECONTAGIOUS.A NEGATIVE TEST RESULT FOR THIS TEST MEANS THAT SARS-CoV-2 NUCLEOCAPSID PROTEINANTIGEN WAS NOT PRESENT IN THE SPECIMEN ABOVE THE LIMIT OF DETECTION. HOWEVER, ANEGATIVE RESULT DOES NOT RULE OUT COVID-19 AND SHOULD NOT BE USED THE SOLEBASIS FOR TREATMENT OR PATIENT MANAGEMENT DECISIONS. A NEGATIVE RESULT DOES NOTEXCLUDE THE POSSIBILITY OF COVID-19. NEGATIVE RESULTS, FROM PATIENTS WITHSYMPTOM ONSET BEYOND FIVE DAYS, SHOULD BE TREATED PRESUMPTIVE ANDCONFIRMATION WITH A MOLECULAR ASSAY, IF NECESSARY, FOR PATIENT MANAGEMENT, MAYBE PERFORMED.WHEN DIAGNOSTIC TESTING IS NEGATIVE, THE POSSIBLILTY OF A FALSE NEGATIVE RESULTSHOULD BE CONSIDERED IN THE CONTEXT OF A PATIENT'S RECENT EXPOSURES AND THEPRESENCE OF CLINICAL SIGNS AND SYMPTOMS CONSISTENT WITH COVID-19. THEPOSSIBILITY OF A FALSE NEGATIVE RESULT SHOULD ESPECIALLY BE CONSIDERED IF THEPATIENT'S RECENT EXPOSURES OR CLINICAL PRESENTATION INDICATE THAT COVID-19 ISLIKELY, AND DIAGNOSTIC TESTS FOR OTHER CAUSES OF ILLNESS (e.g., OTHERRESPIRATORY ILLNESS) ARE NEGATIVE. IF COVID-19 IS STILL SUSPECTED BASED ONEXPOSURE HISTORY TOGETHER WITH OTHER CLINICAL FINDINGS, RE-TESTING SHOULD BECONSIDERED BY HEALTHCARE PROVIDERS IN CONSULTATION WITH [facility]. Performed By: #### 2 27446 ####[facility],[address] [place] [address] ED MED ADMINISTRATION DETAIL on 01-21-2025 ED MED ADMINISTRATION DETAIL Normal [facility] ED NURSES CLINICAL NOTEon ED NURSES CLINICAL NOTE Normal [facility] ED ORDER SHEET (CPOE ONLY)on 01-21-2025 ED ORDER SHEET (CPOE ONLY) Normal [facility] ED PHYSICIAN CLINICAL REPORT on 01-21-2025 ED PHYSICIAN CLINICAL REPORT Normal [facility] ED PHYSICIAN DISCHARGE REPOR Ton 01-21-2025 ED PHYSICIAN DISCHARGE REPORT Normal [facility] ED SUPER BILLon 01-21-2025 ED SUPER BILL Normal [facility] ED VISIT SUMMARYon ED VISIT SUMMARY Normal [facility] ED VITALS FLOW SHEETon 01-21 ED VITALS FLOW SHEET Normal [facility] INFLUENZA VIRUS RAPID A/Bon 01-21-2025 INFLUENZA VIRUS RAPID A/B Normal [facility] Comment on above: Performed By: #### 2 98794 ####[facility],[address] [place] [address] LACTATEon 01-21-2025 Lactate [Moles/Vol] 1.0 mmol/L Normal 0.4 - 2.0 [facility] Comment on above: Performed By: #### 2 51537 ####[facility],[address] [place] [address] LIPASEon 01-21-2025 Lipase [Catalytic activity/Vol] 10.0 U/L Low 15.0 - 78.0 [facility] Comment on above: Result Comment: *PLE ASE NOTE THAT RANGES FOR LIPASE HAVE CHANGED OF 10/31/23 DUE TO AN ASSAYUPDATE BY THE ASSOCIATE DIRECTOR FINANCIAL AID.THE NEW ASSAY RANGE IS 6-250 U/L, WITH A REFERENCERANGE OF 16-77 U/L. Performed By: #### 2 70269 ####[facility],[address] [place] [address] SERUM QUALon 01-21 EXTERNAL QC DONE? YES Normal [facility] Comment on above: Performed By: #### 2 80234 ####[facility],[address] [place] [address] INTERNAL QC PASS Normal [facility] Comment on above: Performed By: #### 2 26470 ####[facility],[address] [place] [address] SER Negative Normal NEGATIVE [facility] Comment on above: Performed By: #### 2 04852 ####[facility],[address] [place] [address] LABORATORYOrdered By: Nell Gillespie on 12-22-2024 Beta HCG ( test) Ql (U) Negative (12/22/24 10:06 AM) [facility] Work Phone: ED MED ADMINISTRATION DETAIL on 12-11-2024 ED MED ADMINISTRATION DETAIL Normal [facility] ED NURSES CLINICAL NOTEon ED NURSES CLINICAL NOTE Normal [facility] ED ORDER SHEET (CPOE ONLY)on 12-11-2024 ED ORDER SHEET (CPOE ONLY) Normal [facility] ED PHYSICIAN CLINICAL REPORT on 12-11-2024 ED PHYSICIAN CLINICAL REPORT Normal [facility] ED PHYSICIAN DISCHARGE REPOR Ton 12-11-2024 ED PHYSICIAN DISCHARGE REPORT Normal [facility] ED SUPER BILLon 12-11-2024 ED SUPER BILL Normal [facility] ED VISIT SUMMARYon ED VISIT SUMMARY Normal [facility] ED VITALS FLOW SHEETon 12-11 ED VITALS FLOW SHEET Normal [facility] CBC + DIFFon 12-10-2024 Baso # 0.04 x10EE3/UL Normal 0.00 - 0.10 [facility] Comment on above: Performed By: #### 2 21492 ####[facility],[address] [place] [address] Basophils/100 WBC (Bld) 0.3 % Normal 0.0 - 2.0 [facility] Comment on above: Performed By: #### 2 11957 ####[facility],[address] [place] [address] CBC + DIFF Normal [facility] Comment on above: Result Comment: CBC- COMPLETE BLOOD COUNT Performed By: #### 2 50104 ####[facility],[address] [place] [address] EO # 0.18 x10EE3/UL Normal 0.00 - 0.50 [facility] Comment on above: Performed By: #### 2 37904 ####[facility],[address] [place] [address] Eosinophils/100 WBC (Bld) 1.6 % Normal 0.0 - 7.0 [facility] Comment on above: Performed By: #### 2 63028 ####[facility],[address] [place], [place] [address] Erythrocyte distribution width (RBC) [Ratio] 14.4 % Normal 12.0 - 15.6 [facility] Comment on above: Performed By: #### 2 07959 ####[facility],[address] [place], [place] [address] Hematocrit (Bld) [Volume fraction] 42.6 % Normal 34.0 - 46.0 [facility] Comment on above: Performed By: #### 2 61355 ####[facility],[address] [place] [address] Hemoglobin (Bld) [Mass/Vol] 14.4 g/dL Normal 12.0 - 16.0 [facility] Comment on above: Performed By: #### 2 01160 ####[facility],[address] [place] [address] Lymph # 1.79 x10EE3/UL Normal 0.80 - 2.80 [facility] Comment on above: Performed By: #### 2 19677 ####[facility],[address] [place], [place] [address] Lymphocytes/100 WBC (Bld) 15.3 % Low 20.0 - 45.0 [facility] Comment on above: Performed By: #### 2 61192 ####[facility],[address] [place] [address] 66053 MANUAL DIFF N/A Normal [facility] Comment on above: Performed By: #### 2 38166 ####[facility],[address] [place] [address] 93442 MCH (RBC) [Entitic mass] 33 pg Normal 27 - 33 [facility] Comment on above: Performed By: #### 2 40083 ####[facility],[address] [place] [address] 36860 MCHC 34 X10 3 Normal 32 - 36 [facility] Comment on above: Performed By: #### 2 56442 ####[facility],[address] [place] [address] 69274 MCV (RBC) [Entitic vol] 98 fL Normal 80 - 99 [facility] Comment on above: Performed By: #### 2 29843 ####[facility],[address] [place] [address] 57201 [place] # 0.96 x10EE3/UL Normal 0.20 - 1.00 [facility] Comment on above: Performed By: #### 2 30349 ####[facility],[address] [place] [address] 34605 MONOS % 8.2 % Normal 0.0 - 10.0 [facility] Comment on above: Performed By: #### 2 41481 ####[facility],[address] [place] [address] 57974 Morphology Efra (Bld) [Interp] N/A Normal [facility] Comment on above: Performed By: #### 2 68939 ####[facility],[address] [place] [address] 30860 Neut # 8.76 x10EE3/UL High 1.50 - 7.10 [facility] Comment on above: Performed By: #### 2 94494 ####[facility],[address] [place] [address] 70422 Neutrophils/100 WBC (Bld) 74.6 % Normal 46.0 - 76.0 [facility] Comment on above: Performed By: #### 2 32138 ####[facility],[address] [place] [address] 69440 PLATELET 444 x10EE3/UL Normal 150 - 450 [facility] Comment on above: Performed By: #### 2 03684 ####[facility],[address] [place] [address] 44091 Platelet mean volume (Bld) [Entitic vol] 7.1 fL Normal 6.6 - 10.5 [facility] Comment on above: Result Comment: AUTO MATED DIFFERENTIAL Performed By: #### 2 02363 ####[facility],[address] [place] [address] 17564 RBC 4.35 x 10EE6/UL Normal 4.10 - 5.30 [facility] Comment on above: Performed By: #### 2 55998 ####[facility],[address] [place] [address] 67819 WBC 11.7 x 10EE3/UL High 4.5 - 10.8 [facility] Comment on above: Performed By: #### 2 81998 ####[facility],[address] [place] [address] 42210 CMP with eGFRon 12-10-2024 AGE 33 years Normal [facility] Comment on above: Performed By: #### 2 19843 ####[facility],[address] [place] [address] 15856 Albumin [Mass/Vol] 4.2 g/dL Normal 3.4 - 5.0 [facility] Comment on above: Performed By: #### 2 57564 ####[facility],[address] [place] [address] 41019 Albumin/Globulin [Mass ratio] 1.3 {ratio} Normal 0.9 - 1.6 [facility] Comment on above: Performed By: #### 2 37066 ####[facility],[address] [place] [address] 82887 ALK PHOS 82 U/L Normal 46 - 116 [facility] Comment on above: Performed By: #### 2 82677 ####[facility],[address] [place] [address] 63889 ALT [Catalytic activity/Vol] 12 U/L Low 16 - 63 [facility] Comment on above: Performed By: #### 2 50676 ####[facility],[address] [place] [address] 22691 Anion gap [Moles/Vol] 14 mmol/L Normal 10 - 20 [facility] Comment on above: Performed By: #### 2 43717 ####[facility],[address] [place] [address] 12903 AST [Catalytic activity/Vol] 14 U/L Normal 13 - 39 [facility] Comment on above: Performed By: #### 2 10551 ####[facility],[address] [place] [address] 87120 B/C RATIO 11 ratio Normal 0 - 30 [facility] Comment on above: Performed By: #### 2 12852 ####[facility],[address] [place] [address] 70231 Bilirubin [Mass/Vol] 0.4 mg/dL Normal 0.2 - 1.0 [facility] Comment on above: Performed By: #### 2 28284 ####[facility],[address] [place] [address] 36901 Calcium [Mass/Vol] 9.1 mg/dL Normal 8.5 - 10.1 [facility] Comment on above: Performed By: #### 2 10920 ####[facility],[address] [place] [address] 82410 Chloride [Moles/Vol] 102 mmol/L Normal 98 - 107 [facility] Comment on above: Performed By: #### 2 59552 ####[facility],[address] [place] [address] 45165 CMP with eGFR Normal [facility] Comment on above: Result Comment: COMP REHENSIVE METABOLIC PANEL Performed By: #### 2 62513 ####[facility],[address] [place] [address] 71366 CO2 [Moles/Vol] 28.0 mmol/L Normal 21.0 - 32.0 [facility] Comment on above: Performed By: #### 2 64906 ####[facility],[address] [place] [address] 37319 Creatinine [Mass/Vol] 1.09 mg/dL High 0.55 - 1.02 [facility] Comment on above: Performed By: #### 2 62942 ####[facility],[address] [place] [address] 03540 eGFR 57 ML/MINUTE Low 60 - 999 [facility] Comment on above: Performed By: #### 2 59589 ####[facility],[address] [place] [address] 90143 GFR/1.73 sq M.predicted among non-blacks MDRD (S/P/Bld) [Vol rate/Area] mL/min/{1.73_m2} Normal 60 - 999 [facility] Comment on above: Result Comment: ACCO RDING TO THE NATIONAL KIDNEY DISEASE EDUCATION PROGRAM(NKDE), A NORMAL eGFRIS A VALUE GREATER THAN OR EQUAL TO 60 ML/MIN/1.73 SQ METERS.CHRONIC KIDNEY DISEASE: <60mL/MIN/1.73 SQ METERSKIDNEY FAILURE: <15mL/MIN/1.73 SQ METERSTHIS TEST SHOULD ONLY BE USED FOR PATIENTS 18 YEARS OF AGE AND OLDER. Performed By: #### 2 76752 ####[facility],[address] [place] [address] 23589 Globulin (S) [Mass/Vol] 3.2 g/dL Normal 1.5 - 3.8 [facility] Comment on above: Performed By: #### 2 42989 ####[facility],[address] [place] [address] 38938 Glucose [Mass/Vol] 91 mg/dL Normal 74 - 106 [facility] Comment on above: Performed By: #### 2 46298 ####[facility],[address] [place] [address] 84599 Potassium [Moles/Vol] 3.7 mmol/L Normal 3.5 - 5.1 [facility] Comment on above: Performed By: #### 2 62404 ####[facility],[address] [place] [address] 29007 Protein [Mass/Vol] 7.4 g/dL Normal 6.4 - 8.2 [facility] Comment on above: Performed By: #### 2 95619 ####[facility],[address] [place] [address] 90239 Sodium [Moles/Vol] 140 mmol/L Normal 136 - 145 [facility] Comment on above: Performed By: #### 2 46098 ####[facility],[address] [place] [address] Urea nitrogen [Mass/Vol] 12 mg/dL Normal 7 - 18 [facility] Comment on above: Performed By: #### 2 19012 ####[facility],[address] [place] [address] CPKon 12-10-2024 CPK 86 U/L Normal 26 - 192 [facility] Comment on above: Performed By: #### 2 39240 ####[facility],[address] [place] [address] CT ABDOMEN/PELVIS Won 2024 CT ABDOMEN/PELVIS W Normal [facility] SERUM QUALon 12-10 EXTERNAL QC DONE? YES Normal [facility] Comment on above: Performed By: #### 2 73578 ####[facility],[address] [place] [address] INTERNAL QC PASS Normal [facility] Comment on above: Performed By: #### 2 99890 ####[facility],[address] [place], [place] [address] SER Negative Normal NEGATIVE [facility] Comment on above: Performed By: #### 2 86725 ####[facility],[address] [place] [address] 50327 URINALYSISon 12-10-2024 Bilirubin Ql (U) Negative Normal NORMAL: NEGATIVE [facility] Comment on above: Performed By: #### 2 69528 ####[facility],[address] [place], [place] [address] Clarity (U) clear Normal NORMAL: CLEAR [facility] Comment on above: Performed By: #### 2 07569 ####[facility],[address] [place] [address] 39362 Color (U) yellow Normal NORMAL: YELLOW [facility] Comment on above: Performed By: #### 2 20871 ####[facility],[address] [place] [address] 70264 Glucose Ql (U) NORM Normal NORMAL: NORMAL [facility] Comment on above: Performed By: #### 2 04151 ####[facility],[address] [place] [address] 42973 Hemoglobin Ql (U) Negative Normal NORMAL: NEGATIVE [facility] Comment on above: Performed By: #### 2 44090 ####[facility],[address] [place] [address] 27936 Ketone Negative Normal NORMAL: NEGATIVE [facility] Comment on above: Performed By: #### 2 20222 ####[facility],[address] [place] [address] 94731 Leukocytes Negative Normal NORMAL: NEGATIVE [facility] [facility] Comment on above: Performed By: #### 2 94702 ####[facility],[address] [place] [address] 96573 Nitrite Ql (U) Negative Normal NORMAL: NEGATIVE [facility] Comment on above: Performed By: #### 2 32826 ####[facility],[address] [place] [address] 96052 pH (U) 7 [pH] Normal NORMAL: 5.0-8.0 [facility] Comment on above: Performed By: #### 2 36963 ####[facility],[address] [place] [address] 33873 Protein Ql (U) Negative Normal NORMAL: NEGATIVE [facility] Comment on above: Performed By: #### 2 29806 ####[facility],[address] [place] [address] 30446 Sp [place] 1.015 Normal NORMAL: 1.010-1.030 [facility] Comment on above: Performed By: #### 2 13820 ####[facility],[address] [place] [address] Specimen Type R Normal [facility] Comment on above: Performed By: #### 2 31638 ####[facility],[address] [place] [address] 13649 Urinalysis dipstick W Reflex Microscopic panel (U) NOT INDICATED Normal [facility] Comment on above: Performed By: #### 2 98849 ####[facility],[address] [place] [address] 31057 Urobilinog NORM Normal NORMAL: NORMAL [facility] Comment on above: Performed By: #### 2 22607 ####[facility],[address] [place] [address] [employer] Cytology Reporton 2024 [employer] Cytology Report . Pathology Reports Accession: Collected Date/Time: Received Date/Time: Pathologist: [id number] 11/15/2024 09:06 EST 11/15/2024 18:00 MD FIDELINA MCGHEE [employer] Cytology Report SPECIMEN: Specimen Description: Liquid Prep w/ HPV Specimen: Cervical Screening or Diagnostic: Screening RELEVANT HISTORY: LMP: radiation SPECIMEN ADEQUACY: SATISFACTORY FOR EVALUATION Endocervical/Transformat ional zone component absent/insufficient INTERPRETATION/RESULTS: NEGATIVE FOR INTRAEPITHELIAL LESION OR MALIGNANCY ORGANISMS: Shift in blanco consistent with bacterial vaginosis SUGGESTIONS/EDUCATIONAL NOTES: This case has been reviewed for 10% QA rescreen HIGH RISK HPV TESTING: Event Code Result HPV Interp See Interp HPVN HPV Interp Text: High Risk HPV Typing: NEGATIVE HPV types 16, 18, 31, 33, 35, 39, 45, 51, 52, 56, 58, 59, 66 and 68 DNA were undetectable or below the pre-set threshold. The sam High-Risk HPV DNA Test is not intended for use as a screening device for Pap normal women under age 30 and is not intended to substitute for regular Pap screening. The sam High-Risk HPV DNA Test is designed to augment existing methods for the detection of cervical disease and should be used in conjunction with clinical information derived from other diagnostic and screening tests, physical examinations and full medical history in accordance with appropriate patient management procedures. NOTE: A negative result does not preclude the presence of HPV infection because results depend on adequate specimen collection, absence of inhibitors and sufficient DNA to be detected. As of: 11/18/24 14:57 EST Pathology Reports Accession: Collected Date/Time: Received Date/Time: Pathologist: [id number] 11/15/2024 09:06 EST 11/15/2024 18:00 EST MD FIDELINA NAVA COMMENT: This Pap Test was successfully processed and evaluated with the assistance of the [employer] Test [employer] System. Electronically Signed by Pathology report verified by [facility] Screened by: BASSAM RM Electronically signed by FIDELINA NAVA MD Sign-Out Date: 11/18/2024 15:34 Performing Lab: [address] Pathology Dept Disclaimer The Pap test is a screening test for cervical cancer. As evidenced by published data, it is subject to both inherent false negative and false positive results. Your patient's results should be interpreted in context with pertinent clinical history including gynecological examination. Normal [facility] HPVon 11-18-2024 HPV Interp Normal See [facility] HPVN [facility] Comment on above: Order Comment: Order placed by AP_HPV_ORDER rule from [id number] Result Comment: High Risk HPV Typing: NEGATIVE HPV types 16, 18, 31, 33, 35, 39, 45, 51, 52, 56, 58, 59, 66 and 68 DNA were undetectable or below the pre-set threshold. The sam High-Risk HPV DNA Test is not intended for use as a screening device for Pap normal women under age 30 and is not intended to substitute for regular Pap screening. The sam High-Risk HPV DNA Test is designed to augment existing methods for the detection of cervical disease and should be used in conjunction with clinical information derived from other diagnostic and screening tests, physical examinations and full medical history in accordance with appropriate patient management procedures. NOTE: A negative result does not preclude the presence of HPV infection because results depend on adequate specimen collection, absence of inhibitors and sufficient DNA to be detected. See Interp HPVN Performed By: #### H PV ####[place] [address] HPV Source Cervix Normal [facility] Comment on above: Order Comment: Order placed by AP_HPV_ORDER rule from [id number] Performed By: #### H PV ####[place] [address] URINE CULTURE [CCL]on 2024 Bacteria identified Cx Nom (U) Normal [facility] Comment on above: Performed By: #### 2 07390 ####[facility],[address] [place] [address] 40456 CBC + DIFFon 11-06-2024 Baso # 0.03 x10EE3/UL Normal 0.00 - 0.10 [facility] Comment on above: Performed By: #### 2 30329 ####[facility],[address] [place] [address] 90904 Basophils/100 WBC (Bld) 0.3 % Normal 0.0 - 2.0 [facility] Comment on above: Performed By: #### 2 33278 ####[facility],[address] [place] [address] 56882 CBC + DIFF Normal [facility] Comment on above: Result Comment: CBC- COMPLETE BLOOD COUNT Performed By: #### 2 17082 ####[facility],[address] [place] [address] 26970 EO # 0.15 x10EE3/UL Normal 0.00 - 0.50 [facility] Comment on above: Performed By: #### 2 27995 ####[facility],[address] [place] [address] 68451 Eosinophils/100 WBC (Bld) 1.5 % Normal 0.0 - 7.0 [facility] Comment on above: Performed By: #### 2 13869 ####[facility],[address] [place] [address] 28345 Erythrocyte distribution width (RBC) [Ratio] 14.8 % Normal 12.0 - 15.6 [facility] Comment on above: Performed By: #### 2 47036 ####[facility],[address] [place] [address] 96528 Hematocrit (Bld) [Volume fraction] 40.4 % Normal 34.0 - 46.0 [facility] Comment on above: Performed By: #### 2 63943 ####[facility],[address] [place] [address] Hemoglobin (Bld) [Mass/Vol] 13.9 g/dL Normal 12.0 - 16.0 [facility] Comment on above: Performed By: #### 2 15150 ####[facility],[address] [place] [address] Lymph # 2.56 x10EE3/UL Normal 0.80 - 2.80 [facility] Comment on above: Performed By: #### 2 56474 ####[facility],[address] [place], [place] [address] Lymphocytes/100 WBC (Bld) 25.3 % Normal 20.0 - 45.0 [facility] Comment on above: Performed By: #### 2 64354 ####[facility],[address] [place], [place] [address] MANUAL DIFF N/A Normal [facility] Comment on above: Performed By: #### 2 44995 ####[facility],[address] [place], [place] [address] MCH (RBC) [Entitic mass] 33 pg Normal 27 - 33 [facility] Comment on above: Performed By: #### 2 87300 ####[facility],[address] [place] [address] 36906 MCHC 34 X10 3 Normal 32 - 36 [facility] Comment on above: Performed By: #### 2 24687 ####[facility],[address] [place] [address] 34904 MCV (RBC) [Entitic vol] 97 fL Normal 80 - 99 [facility] Comment on above: Performed By: #### 2 63902 ####[facility],[address] [place] [address] 19261 [place] # 0.91 x10EE3/UL Normal 0.20 - 1.00 [facility] Comment on above: Performed By: #### 2 94112 ####[facility],[address] [place] [address] 67733 MONOS % 9.0 % Normal 0.0 - 10.0 [facility] Comment on above: Performed By: #### 2 57398 ####[facility],[address] [place] [address] 04507 Morphology Efra (Bld) [Interp] N/A Normal [facility] Comment on above: Performed By: #### 2 04942 ####[facility],[address] [place] [address] 26983 Neut # 6.45 x10EE3/UL Normal 1.50 - 7.10 [facility] Comment on above: Performed By: #### 2 35051 ####[facility],[address] [place] [address] 56154 Neutrophils/100 WBC (Bld) 63.8 % Normal 46.0 - 76.0 [facility] Comment on above: Performed By: #### 2 26194 ####[facility],[address] [place] [address] 17570 PLATELET 457 x10EE3/UL High 150 - 450 [facility] Comment on above: Performed By: #### 2 75881 ####[facility],[address] [place] [address] 30598 Platelet mean volume (Bld) [Entitic vol] 6.6 fL Normal 6.6 - 10.5 [facility] Comment on above: Result Comment: AUTO MATED DIFFERENTIAL Performed By: #### 2 19203 ####[facility],[address] [place] [address] 29476 RBC 4.15 x 10EE6/UL Normal 4.10 - 5.30 [facility] Comment on above: Performed By: #### 2 19724 ####[facility],[address] [place] [address] 66083 WBC 10.1 x 10EE3/UL Normal 4.5 - 10.8 [facility] Comment on above: Performed By: #### 2 24469 ####[facility],[address] [place] [address] 88508 CHEST 1 VIEWon 11-06-2024 CHEST 1 VIEW Normal [facility] CMP with eGFRon 11-06-2024 AGE 33 years Normal [facility] Comment on above: Performed By: #### 2 13352 ####[facility],[address] [place] [address] 24226 Albumin [Mass/Vol] 3.9 g/dL Normal 3.4 - 5.0 [facility] Comment on above: Performed By: #### 2 79895 ####[facility],[address] [place] [address] 11272 Albumin/Globulin [Mass ratio] 1.1 {ratio} Normal 0.9 - 1.6 [facility] Comment on above: Performed By: #### 2 17065 ####[facility],[address] [place] [address] 83468 ALK PHOS 81 U/L Normal 46 - 116 [facility] Comment on above: Performed By: #### 2 28889 ####[facility],[address] [place] [address] 11693 ALT [Catalytic activity/Vol] 13 U/L Low 16 - 63 [facility] Comment on above: Performed By: #### 2 92343 ####[facility],[address] [place] [address] 00955 Anion gap [Moles/Vol] 15 mmol/L Normal 10 - 20 [facility] Comment on above: Performed By: #### 2 99857 ####[facility],[address] [place] [address] 48395 AST [Catalytic activity/Vol] 12 U/L Low 13 - 39 [facility] Comment on above: Performed By: #### 2 81001 ####[facility],[address] [place] [address] 72087 B/C RATIO 6 ratio Normal 0 - 30 [facility] Comment on above: Performed By: #### 2 91385 ####[facility],[address] [place] [address] 94789 Bilirubin [Mass/Vol] 0.5 mg/dL Normal 0.2 - 1.0 [facility] Comment on above: Performed By: #### 2 86178 ####[facility],[address] [place] [address] 14983 Calcium [Mass/Vol] 9.1 mg/dL Normal 8.5 - 10.1 [facility] Comment on above: Performed By: #### 2 84753 ####[facility],[address] [place] [address] 54754 Chloride [Moles/Vol] 101 mmol/L Normal 98 - 107 [facility] Comment on above: Performed By: #### 2 78259 ####[facility],[address] [place] [address] 74078 CMP with eGFR Normal [facility] Comment on above: Result Comment: COMP REHENSIVE METABOLIC PANEL Performed By: #### 2 92456 ####[facility],[address] [place] [address] 62122 CO2 [Moles/Vol] 28.6 mmol/L Normal 21.0 - 32.0 [facility] Comment on above: Performed By: #### 2 36498 ####[facility],[address] [place] [address] 74219 Creatinine [Mass/Vol] 1.08 mg/dL High 0.55 - 1.02 [facility] Comment on above: Performed By: #### 2 13023 ####[facility],[address] [place] [address] 11746 eGFR 58 ML/MINUTE Low 60 - 999 [facility] Comment on above: Performed By: #### 2 68573 ####[facility],[address] [place] [address] 29149 GFR/1.73 sq M.predicted among non-blacks MDRD (S/P/Bld) [Vol rate/Area] mL/min/{1.73_m2} Normal 60 - 999 [facility] Comment on above: Result Comment: ACCO RDING TO THE NATIONAL KIDNEY DISEASE EDUCATION PROGRAM(NKDE), A NORMAL eGFRIS A VALUE GREATER THAN OR EQUAL TO 60 ML/MIN/1.73 SQ METERS.CHRONIC KIDNEY DISEASE: <60mL/MIN/1.73 SQ METERSKIDNEY FAILURE: <15mL/MIN/1.73 SQ METERSTHIS TEST SHOULD ONLY BE USED FOR PATIENTS 18 YEARS OF AGE AND OLDER. Performed By: #### 2 64419 ####[facility],[address] [place] [address] 70549 Globulin (S) [Mass/Vol] 3.5 g/dL Normal 1.5 - 3.8 [facility] Comment on above: Performed By: #### 2 68228 ####[facility],[address] [place] [address] 50770 Glucose [Mass/Vol] 79 mg/dL Normal 74 - 106 [facility] Comment on above: Performed By: #### 2 57137 ####[facility],[address] [place] [address] 45986 Potassium [Moles/Vol] 3.9 mmol/L Normal 3.5 - 5.1 [facility] Comment on above: Performed By: #### 2 89337 ####[facility],[address] [place] [address] 03921 Protein [Mass/Vol] 7.4 g/dL Normal 6.4 - 8.2 [facility] Comment on above: Performed By: #### 2 02881 ####[facility],[address] [place] [address] 80201 Sodium [Moles/Vol] 141 mmol/L Normal 136 - 145 [facility] Comment on above: Performed By: #### 2 69219 ####[facility],[address] [place] [address] 25235 Urea nitrogen [Mass/Vol] 7 mg/dL Normal 7 - 18 [facility] Comment on above: Performed By: #### 2 19712 ####[facility],[address] [place], [place] [address] CT ABDOMEN/PELVIS Won 2024 CT ABDOMEN/PELVIS W Normal [facility] CULTURE BLOOD [VANESSA]on Microscopic examination of blood, culture CULTURE BLOOD [VANESSA] _BLOOD CULTURE_ GO TO CPSI REPORTS AND ATTACHMENTS FOR SCANNED REPORT 11/12/24.0941.TLJ.COMPLE TE Normal [facility] Comment on above: Performed By: #### 2 40452 ####[facility],[address] [place], [place] [address] Microscopic examination of blood, culture CULTURE BLOOD [VANESSA] _BLOOD CULTURE_ GO TO CPSI REPORTS AND ATTACHMENTS FOR SCANNED REPORT 11/12/24.1006.TLJ.COMPLE TE Normal [facility] Comment on above: Performed By: #### 2 22807 ####[facility],[address] [place], [place] [address] ED MED ADMINISTRATION DETAIL on 11-06-2024 ED MED ADMINISTRATION DETAIL Normal [facility] ED NURSES CLINICAL NOTEon ED NURSES CLINICAL NOTE Normal [facility] ED ORDER SHEET (CPOE ONLY)on 11-06-2024 ED ORDER SHEET (CPOE ONLY) Normal [facility] ED PHYSICIAN CLINICAL REPORT on 11-06-2024 ED PHYSICIAN CLINICAL REPORT Normal [facility] ED PHYSICIAN DISCHARGE REPOR Ton 11-06-2024 ED PHYSICIAN DISCHARGE REPORT Normal [facility] ED SUPER BILLon 11-06-2024 ED SUPER BILL Normal [facility] ED VISIT SUMMARYon ED VISIT SUMMARY Normal [facility] ED VITALS FLOW SHEETon 11-06 ED VITALS FLOW SHEET Normal [facility] LACTATEon 11-06-2024 Lactate [Moles/Vol] 1.1 mmol/L Normal 0.4 - 2.0 [facility] Comment on above: Performed By: #### 2 30775 ####[facility],[address] [place] [address] URINEon 11-06-2024 Beta HCG ( test) Ql (U) Negative Normal NEGATIVE [facility] Comment on above: Performed By: #### 2 99945 ####[facility],[address] [place] [address] EXTERNAL QC DONE? YES Normal [facility] Comment on above: Performed By: #### 2 80568 ####[facility],[address] [place] [address] INTERNAL QC PASS Normal [facility] Comment on above: Performed By: #### 2 12560 ####[facility],[address] [place] [address] 89553 TROPONINon 11-06-2024 HS TROPONIN <4.0 Normal 0.0 - 51.4 [facility] Comment on above: Performed By: #### 2 43085 ####[facility],[address] [place] [address] 40985 URINALYSISon 11-06-2024 Amorphous NONE Normal [facility] Comment on above: Performed By: #### 2 23473 ####[facility],[address] [place] [address] 33020 Bacteria TRACE Normal [facility] Comment on above: Performed By: #### 2 19568 ####[facility],[address] [place] [address] 23253 Bilirubin Ql (U) Negative Normal NORMAL: NEGATIVE [facility] Comment on above: Performed By: #### 2 37070 ####[facility],[address] [place] [address] 03889 Casts NONE Normal [facility] Comment on above: Performed By: #### 2 29528 ####[facility],[address] [place] [address] 52914 Clarity (U) SL. CLOUDY Abnormal NORMAL: CLEAR [facility] Comment on above: Performed By: #### 2 02968 ####[facility],[address] [place], [place] [address] Color (U) yellow Normal NORMAL: YELLOW [facility] Comment on above: Performed By: #### 2 28545 ####[facility],[address] [place], [place] [address] Crystals LM Nom (Urine sed) NONE Normal [facility] Comment on above: Performed By: #### 2 28603 ####[facility],[address] [place] [address] 04880 Epi Cells OCC Normal [facility] Comment on above: Performed By: #### 2 91690 ####[facility],[address] [place] [address] 17470 Glucose Ql (U) NORM Normal NORMAL: NORMAL [facility] Comment on above: Performed By: #### 2 68889 ####[facility],[address] [place] [address] 79344 Hemoglobin Ql (U) 10 Abnormal NORMAL: NEGATIVE [facility] Comment on above: Performed By: #### 2 61517 ####[facility],[address] [place] [address] 37025 Ketone Negative Normal NORMAL: NEGATIVE [facility] Comment on above: Performed By: #### 2 71800 ####[facility],[address] [place] [address] 93555 Leukocytes Negative Normal NORMAL: NEGATIVE [facility] Comment on above: Performed By: #### 2 28067 ####[facility],[address] [place] [address] Mucous NONE Normal [facility] Comment on above: Performed By: #### 2 85073 ####[facility],[address] [place] [address] Nitrite Ql (U) Negative Normal NORMAL: NEGATIVE [facility] Comment on above: Performed By: #### 2 26473 ####[facility],[address] [place] [address] pH (U) 6 [pH] Normal NORMAL: 5.0-8.0 [facility] Comment on above: Result Comment: UNAB LE TO PERFORM PROTEIN Performed By: #### 2 50995 ####[facility],[address] [place] [address] Rbc 0-5 Normal 0-3/hpf [facility] Comment on above: Performed By: #### 2 47584 ####[facility],[address] [place] [address] Sp [place] 1.020 Normal NORMAL: 1.010-1.030 [facility] Comment on above: Performed By: #### 2 55418 ####[facility],[address] [place] [address] Specimen Type R Normal [facility] Comment on above: Performed By: #### 2 97012 ####[facility],[address] [place] [address] Urinalysis dipstick W Reflex Microscopic panel (U) SEE BELOW Normal [facility] Comment on above: Result Comment: MICR OSCOPIC Performed By: #### 2 11365 ####[facility],[address] [place] [address] Urobilinog NORM Normal NORMAL: NORMAL [facility] Comment on above: Performed By: #### 2 68824 ####[facility],[address] [place] [address] Wbc NONE Normal 0-5/hpf [facility] Comment on above: Performed By: #### 2 23424 ####[facility],[address] [place] [address],[facility] [address] Yeast NONE Normal [facility] Comment on above: Performed By: #### 2 84491 ####[facility],[address] [place] [address],[facility] [address] Amorphous NONE Normal [facility] Comment on above: Performed By: #### 2 14192 ####[facility],[address] [place] [address],[facility] [address] Bacteria 4+ Normal [facility] Comment on above: Performed By: #### 2 86450 ####[facility],[address] [place] [address],[facility] [address] Bilirubin Ql (U) Negative Normal NORMAL: NEGATIVE [facility] Comment on above: Performed By: #### 2 53800 ####[facility],[address] [place] [address] 65779 Casts NONE Normal [facility] Comment on above: Performed By: #### 2 77082 ####[facility],[address] [place] [address] 01077 Clarity (U) CLOUDY Abnormal NORMAL: CLEAR [facility] Comment on above: Performed By: #### 2 26812 ####[facility],[address] [place] [address] 22649 Color (U) orange Normal NORMAL: YELLOW [facility] Comment on above: Performed By: #### 2 00384 ####[facility],[address] [place] [address] 29462 Crystals LM Nom (Urine sed) NONE Normal [facility] Comment on above: Performed By: #### 2 37186 ####[facility],[address] [place] [address] 68456 Epi Cells NONE Normal [facility] Comment on above: Performed By: #### 2 36364 ####[facility],[address] [place] [address] 71215 Glucose Ql (U) NORM Normal NORMAL: NORMAL [facility] Comment on above: Performed By: #### 2 62363 ####[facility],[address] [place] [address] 14383 Hemoglobin Ql (U) 250 Abnormal NORMAL: NEGATIVE [facility] Comment on above: Performed By: #### 2 38983 ####[facility],[address] [place] [address] 27802 Ketone Negative Normal NORMAL: NEGATIVE [facility] Comment on above: Performed By: #### 2 46347 ####[facility],[address] [place] [address] 99396 Leukocytes 500 Abnormal NORMAL: NEGATIVE [facility] Comment on above: Performed By: #### 2 74897 ####[facility],[address] [place] [address] 03568 Mucous NONE Normal [facility] Comment on above: Performed By: #### 2 37632 ####[facility],[address] [place] [address] 59001 Nitrite Ql (U) Positive Normal NORMAL: NEGATIVE [facility] Comment on above: Performed By: #### 2 34818 ####[facility],[address] [place] [address] 82976 pH (U) 7 [pH] Normal NORMAL: 5.0-8.0 [facility] Comment on above: Result Comment: UNAB LE TO PERFORM PROTEIN Performed By: #### 2 60943 ####[facility],[address] [place] [address] 57367 Rbc TNTC Normal 0-3/hpf [facility] Comment on above: Performed By: #### 2 34614 ####[facility],[address] [place] [address] 13584 Sp Moccasin 1.010 Normal NORMAL: 1.010-1.030 [facility] Comment on above: Performed By: #### 2 40217 ####[facility],[address] [place] [address] Specimen Type R Normal [facility] Comment on above: Performed By: #### 2 39676 ####[facility],[address] [place] [address] Urinalysis dipstick W Reflex Microscopic panel (U) SEE BELOW Normal [facility] Comment on above: Result Comment: MICR OSCOPIC Performed By: #### 2 03964 ####[facility],[address] [place] [address] Urobilinog NORM Normal NORMAL: NORMAL [facility] Comment on above: Performed By: #### 2 76578 ####[facility],[address] [place] [address] WBC (U) [#/Vol] /uL Normal 0-5/hpf [facility] Comment on above: Performed By: #### 2 49769 ####[facility],[address] [place] [address] Yeast NONE Normal [facility] Comment on above: Performed By: #### 2 36985 ####[facility],[address] [place] [address] ED MED ADMINISTRATION DETAIL on 09-04-2024 ED MED ADMINISTRATION DETAIL Normal [facility] ED NURSES CLINICAL NOTEon ED NURSES CLINICAL NOTE Normal [facility] ED ORDER SHEET (CPOE ONLY)on 09-04-2024 ED ORDER SHEET (CPOE ONLY) Normal [facility] ED PHYSICIAN CLINICAL REPORT on 09-04-2024 ED PHYSICIAN CLINICAL REPORT Normal [facility] ED PHYSICIAN DISCHARGE REPOR Ton 09-04-2024 ED PHYSICIAN DISCHARGE REPORT Normal [facility] ED SUPER BILLon 09-04-2024 ED SUPER BILL Normal [facility] ED VISIT SUMMARYon ED VISIT SUMMARY Normal [facility] ED VITALS FLOW SHEETon 09-04 ED VITALS FLOW SHEET Normal [facility] BMP with eGFRon 08-31-2024 AGE 33 years Normal [facility] Comment on above: Performed By: #### 2 55385 ####[facility],[address] [place] [address] 14435 Anion gap [Moles/Vol] 17 mmol/L Normal 10 - 20 [facility] Comment on above: Performed By: #### 2 91655 ####[facility],[address] [place] [address] 71065 BMP with eGFR Normal [facility] Comment on above: Result Comment: BASI C METABOLIC PANEL Performed By: #### 2 83201 ####[facility],[address] [place] [address] 51277 Calcium [Mass/Vol] 8.3 mg/dL Low 8.5 - 10.1 [facility] Comment on above: Performed By: #### 2 79014 ####[facility],[address] [place] [address] 69471 Chloride [Moles/Vol] 109 mmol/L High 98 - 107 [facility] Comment on above: Performed By: #### 2 23081 ####[facility],[address] [place] [address] 56987 CO2 [Moles/Vol] 20.7 mmol/L Low 21.0 - 32.0 [facility] Comment on above: Performed By: #### 2 00524 ####[facility],[address] [place] [address] 75557 Creatinine [Mass/Vol] 0.96 mg/dL Normal 0.55 - 1.02 [facility] Comment on above: Performed By: #### 2 94521 ####[facility],[address] [place] [address] 27891 GFR/1.73 sq M.predicted among non-blacks MDRD (S/P/Bld) [Vol rate/Area] mL/min/{1.73_m2} Normal 60 - 999 [facility] Comment on above: Performed By: #### 2 30517 ####[facility],[address] [place] [address] Result Comment: ACCO RDING TO THE NATIONAL KIDNEY DISEASE EDUCATION PROGRAM(NKDE), A NORMAL eGFRIS A VALUE GREATER THAN OR EQUAL TO 60 ML/MIN/1.73 SQ METERS.CHRONIC KIDNEY DISEASE: <60mL/MIN/1.73 SQ METERSKIDNEY FAILURE: <15mL/MIN/1.73 SQ METERSTHIS TEST SHOULD ONLY BE USED FOR PATIENTS 18 YEARS OF AGE AND OLDER. Glucose [Mass/Vol] 124 mg/dL High 74 - 106 [facility] Comment on above: Performed By: #### 2 93539 ####[facility],[address] [place] [address] Potassium [Moles/Vol] 3.5 mmol/L Normal 3.5 - 5.1 [facility] Comment on above: Performed By: #### 2 51281 ####[facility],[address] [place] [address] Sodium [Moles/Vol] 143 mmol/L Normal 136 - 145 [facility] Comment on above: Performed By: #### 2 77723 ####[facility],[address] [place] [address] Urea nitrogen [Mass/Vol] 8 mg/dL Normal 7 - 18 [facility] Comment on above: Performed By: #### 2 53448 ####[facility],[address] [place], [place] [id number] AGE 33 years Normal [facility] Comment on above: Performed By: #### 2 73431 ####[facility],[address] [place], [place] [address] Anion gap [Moles/Vol] 18 mmol/L Normal 10 - 20 [facility] Comment on above: Performed By: #### 2 28800 ####[facility],[address] [place] [address] BMP with eGFR Normal [facility] Comment on above: Result Comment: BASI C METABOLIC PANEL Performed By: #### 2 77000 ####[facility],[address] [place] [address] 00415 Calcium [Mass/Vol] 9.4 mg/dL Normal 8.5 - 10.1 [facility] Comment on above: Performed By: #### 2 64543 ####[facility],[address] [place], [place] [address] Chloride [Moles/Vol] 104 mmol/L Normal 98 - 107 [facility] Comment on above: Performed By: #### 2 71279 ####[facility],[address] [place], [place] [address] CO2 [Moles/Vol] 24.0 mmol/L Normal 21.0 - 32.0 [facility] Comment on above: Performed By: #### 2 41409 ####[facility],[address] [place], [place] [address] Creatinine [Mass/Vol] 1.11 mg/dL High 0.55 - 1.02 [facility] Comment on above: Performed By: #### 2 70182 ####[facility],[address] [place] [address] 29775 eGFR 56 ML/MINUTE Low 60 - 999 [facility] Comment on above: Performed By: #### 2 15602 ####[facility],[address] [place] [address] 19306 GFR/1.73 sq M.predicted among non-blacks MDRD (S/P/Bld) [Vol rate/Area] mL/min/{1.73_m2} Normal 60 - 999 [facility] Comment on above: Result Comment: ACCO RDING TO THE NATIONAL KIDNEY DISEASE EDUCATION PROGRAM(NKDE), A NORMAL eGFRIS A VALUE GREATER THAN OR EQUAL TO 60 ML/MIN/1.73 SQ METERS.CHRONIC KIDNEY DISEASE: <60mL/MIN/1.73 SQ METERSKIDNEY FAILURE: <15mL/MIN/1.73 SQ METERSTHIS TEST SHOULD ONLY BE USED FOR PATIENTS 18 YEARS OF AGE AND OLDER. Performed By: #### 2 57233 ####[facility],[address] [place] [address] 27949 Glucose [Mass/Vol] 146 mg/dL High 74 - 106 [facility] Comment on above: Performed By: #### 2 09384 ####[facility],[address] [place] [address] 28576 Potassium [Moles/Vol] 2.9 mmol/L Critically low 3.5 - 5.1 [facility] Comment on above: Result Comment: { CA LLED TO ED AT 0650{ READ BACK BY TADEO TO CWB Performed By: #### 2 93170 ####[facility],[address] [place] [address] 95703 Sodium [Moles/Vol] 143 mmol/L Normal 136 - 145 [facility] Comment on above: Performed By: #### 2 19877 ####[facility],[address] [place] [address] 24108 Urea nitrogen [Mass/Vol] 9 mg/dL Normal 7 - 18 [facility] Comment on above: Performed By: #### 2 67436 ####[facility],[address] [place] [address] 65787 CBC + DIFFon 08-31-2024 Baso # 0.06 x10EE3/UL Normal 0.00 - 0.10 [facility] Comment on above: Performed By: #### 2 43633 ####[facility],[address] [place] [address] 71237 Basophils/100 WBC (Bld) 0.3 % Normal 0.0 - 2.0 [facility] Comment on above: Performed By: #### 2 41300 ####[facility],[address] [place] [address] 69236 CBC + DIFF Normal [facility] Comment on above: Result Comment: CBC- COMPLETE BLOOD COUNT Performed By: #### 2 53990 ####[place] [address] EO # 0.19 x10EE3/UL Normal 0.00 - 0.50 [facility] Comment on above: Performed By: #### 2 05992 ####[place] [address] Eosinophils/100 WBC (Bld) 1.1 % Normal 0.0 - 7.0 [facility] Comment on above: Performed By: #### 2 62405 ####[place] [address] Erythrocyte distribution width (RBC) [Ratio] 14.0 % Normal 12.0 - 15.6 [facility] Comment on above: Performed By: #### 2 96562 ####[place] [address] Hematocrit (Bld) [Volume fraction] 47.1 % High 34.0 - 46.0 [facility] Comment on above: Performed By: #### 2 39343 ####[place] [address] Hemoglobin (Bld) [Mass/Vol] 15.6 g/dL Normal 12.0 - 16.0 [facility] Comment on above: Performed By: #### 2 28396 ####[place] [address] Lymph # 3.41 x10EE3/UL High 0.80 - 2.80 [facility] Comment on above: Performed By: #### 2 82098 ####[place] [address] Lymphocytes/100 WBC (Bld) 20.7 % Normal 20.0 - 45.0 [facility] Comment on above: Performed By: #### 2 18475 ####[place] [address] MANUAL DIFF N/A Normal [facility] Comment on above: Performed By: #### 2 75033 ####[facility],[address] [place] [address] MCH (RBC) [Entitic mass] 32 pg Normal 27 - 33 [facility] Comment on above: Performed By: #### 2 30447 ####[facility],[address] [place] [address] MCHC 33 X10 3 Normal 32 - 36 [facility] Comment on above: Performed By: #### 2 54224 ####[facility],[address] [place] [address] MCV (RBC) [Entitic vol] 97 fL Normal 80 - 99 [facility] Comment on above: Performed By: #### 2 33875 ####[facility],[address] [place] [address] [place] # 1.00 x10EE3/UL Normal 0.20 - 1.00 [facility] Comment on above: Performed By: #### 2 46299 ####[facility],[address] [place] [address] MONOS % 6.1 % Normal 0.0 - 10.0 [facility] Comment on above: Performed By: #### 2 13792 ####[facility],[address] [place] [address] Morphology Efra (Bld) [Interp] N/A Normal [facility] Comment on above: Performed By: #### 2 44380 ####[facility],[address] [place] [address] Neut # 11.82 x10EE3/UL High 1.50 - 7.10 [facility] Comment on above: Performed By: #### 2 80753 ####[facility],[address] [place] [address] Neutrophils/100 WBC (Bld) 71.8 % Normal 46.0 - 76.0 [facility] Comment on above: Performed By: #### 2 06059 ####[facility],[address] [place] [address] 10582 PLATELET 387 x10EE3/UL Normal 150 - 450 [facility] Comment on above: Performed By: #### 2 80628 ####[facility],[address] [place] [address] Platelet mean volume (Bld) [Entitic vol] 7.1 fL Normal 6.6 - 10.5 [facility] Comment on above: Result Comment: AUTO MATED DIFFERENTIAL Performed By: #### 2 30611 ####[facility],[address] [place] [address] RBC 4.88 x 10EE6/UL Normal 4.10 - 5.30 [facility] Comment on above: Performed By: #### 2 53167 ####[facility],[address] [place] [address] WBC 16.5 x 10EE3/UL High 4.5 - 10.8 [facility] Comment on above: Performed By: #### 2 62442 ####[facility],[address] [place] [address] CT ABDOMEN/PELVIS WOon 08-31 CT ABDOMEN/PELVIS WO Normal [facility] SERUM QUALon 08-31 EXTERNAL QC DONE? YES Normal [facility] Comment on above: Performed By: #### 2 24885 ####[facility],[address] [place] [address] INTERNAL QC PASS Normal [facility] Comment on above: Performed By: #### 2 87104 ####[facility],[address] [place] [address] SER Positive Normal NEGATIVE [facility] Comment on above: Performed By: #### 2 87439 ####[facility],[address] [place] [address] EMERGENCY REPORTon EMERGENCY REPORT Normal [facility] IR NEPHROSTOMY EXCHANGEon IR NEPHROSTOMY EXCHANGE ORIGINAL HISTORY: ORDERING SYSTEM PROVIDED HISTORY: Reason for Exam: cervical caner PROCEDURE: 1. Nephrostomy tube exchange under fluoroscopy LATERALITY: Left HUMAN RESOURCES DIRECTOR: Dr. Goss Resident: Dr. English MATERIALS: 12 Fr drainage catheter Amplatz Moccasin bag Jese catheter ANESTHESIA: General anaesthesia. INTRASERVICE TIME (min): Please refer to anaesthesia case log for further details FLUORO: 4 min AIR KERMA DOSE: 36.1 mGy CONTRAST: Documented in Surginet. The procedure, risks, and alternatives, were discussed and all questions were answered. Informed consent obtained. Maximal sterile barrier technique, hand hygiene, skin prep, and sterile ultrasound techniques (if used) utilized. Percutaneous site was sterilely prepped and draped. Time out performed. Sausage Stuffer image demonstrates stable appearance of the nephrostomy tube. Contrast injection through the catheter demonstrates minimal hydronephrosis. After cutting the hub, the old catheter was exchanged for a new one and the distal loop formed in the renal pelvis, confirmed with contrast injection. The string was removed in its entirety. The catheter was flushed and attached to dependent bag drainage. Catheter secured to the skin with suture. Sterile dressing placed. COMPLICATIONS: None EBL: Minimal CONDITION: Stable, unchanged IMPRESSION: 1. Successful, uncomplicated nephrostomy tube change. 2. Patient to follow-up with interventional radiology in 6-8 weeks time for exchange, unless further intervention is pursued. The procedure was done with participation of the resident in my presence and direct supervision. I have reviewed the images and the findings with the resident and agree with the contents of the report. Discharge: The patient was dismissed to home after recovering from procedure in good condition. Detailed post procedure instructions were reviewed with the patient by radiology staff and printed instructions provided. Plan: Patient will follow-up with referring physician for test or pathology results. Interpreted by: Garth Goss Preliminary Report By: Noemi English Electronically signed By Garth Goss Dictated Date: 08/11/2024 2:01:42 PM Prelim Date: 08/11/2024 5:39:17 PM Sign Date: 08/11/2024 5:39:17 PM Ordering Provider: [facility] MAIN LABORATORYOrdered By: Courtney Freed on 08-11-2024 Beta HCG ( test) Ql (U) Negative (08/11/24 8:31 AM) [facility] Work Phone: .Auto Diffon 08-06-2024 Basophil, Absolute 0.1 10 3/mcL Normal 0.0-0.3 [facility] Comment on above: Performed By: #### B MP, ANEU, GFR, ADIFF, CBC ####[address] [address] Basophils/100 WBC (Bld) 1.2 % Normal 0.0-2.5 [facility] Comment on above: Performed By: #### B MP, ANEU, GFR, ADIFF, CBC ####[address] [address] Eosinophil, Absolute 0.4 10 3/mcL Normal 0.0-0.7 [facility] Comment on above: Performed By: #### B MP, ANEU, GFR, ADIFF, CBC ####[address] [address] Eosinophils/100 WBC (Bld) 4.3 % Normal 0.0-6.0 [facility] Comment on above: Performed By: #### B MP, ANEU, GFR, ADIFF, CBC ####[address] [address] Lymphocyte, Absolute 1.8 10 3/mcL Normal 0.9-4.3 [facility] Comment on above: Performed By: #### B MP, ANEU, GFR, ADIFF, CBC ####[address] [address] Lymphocytes/100 WBC (Bld) 20.0 % Normal 20.0-40.0 [facility] Comment on above: Performed By: #### B MP, ANEU, GFR, ADIFF, CBC ####[address] [address] Monocyte, Absolute 0.5 10 3/mcL Normal 0.1-1.4 [facility] Comment on above: Performed By: #### B MP, ANEU, GFR, ADIFF, CBC ####[place] [address] [place] [address] 32543 Monocytes/100 WBC (Bld) 6.1 % Normal 2.0-13.0 [facility] Comment on above: Performed By: #### B MP, ANEU, GFR, ADIFF, CBC ####[place] [address] [place] [address] 11263 Neutrophils/100 WBC (Bld) 68.4 % Normal 50.0-75.0 [facility] Comment on above: Performed By: #### B MP, ANEU, GFR, ADIFF, CBC ####[address] [address] .GFRon 08-06-2024 GFR >60 [facility] MAIN Comment on above: Result Comment: GFR Population mean for , Non- Americans Ages 20-29 = 116 mL/min/1.73 sq.m. Ages 30-39 = 107 mL/min/1.73 sq.m. Ages 40-49 = 99 mL/min/1.73 sq.m. Ages 50-59 = 93 mL/min/1.73 sq.m. Ages 60-69 = 85 mL/min/1.73 sq.m. Ages 70+ = 75 mL/min/1.73 sq.m. Chronic Kidney Disease: Less than 60 mL/min/1.73 square meters End Stage Renal Disease: Less than 15 mL/min/1.73 square meters Performed By: #### B MP, ANEU, GFR, ADIFF, CBC ####[address] [address] GFR Non- >60 [facility] MAIN Comment on above: Result Comment: GFR Population mean for , Non- Americans Ages 20-29 = 116 mL/min/1.73 sq.m. Ages 30-39 = 107 mL/min/1.73 sq.m. Ages 40-49 = 99 mL/min/1.73 sq.m. Ages 50-59 = 93 mL/min/1.73 sq.m. Ages 60-69 = 85 mL/min/1.73 sq.m. Ages 70+ = 75 mL/min/1.73 sq.m. Chronic Kidney Disease: Less than 60 mL/min/1.73 square meters End Stage Renal Disease: Less than 15 mL/min/1.73 square meters Performed By: #### B MP, ANEU, GFR, ADIFF, CBC ####[address] [address] .NEUABSon 08-06-2024 Neutrophil, Absolute 6.1 10 3/mcL Normal 2.3-8.1 [facility] MAIN Comment on above: Performed By: #### B MP, ANEU, GFR, ADIFF, CBC ####[address] [address] BMPon 08-06-2024 BUN/Creatinine Ratio 13.3 ratio Normal 10.0-22.0 [facility] Comment on above: Performed By: #### B MP, ANEU, GFR, ADIFF, CBC ####[place] [address] Calcium [Mass/Vol] 10.7 mg/dL High 8.7-10.4 [facility] MA[facility] Comment on above: Performed By: #### B MP, ANEU, GFR, ADIFF, CBC ####[place] [address] Chloride [Moles/Vol] 110 mmol/L Normal 98-110 [facility] Comment on above: Performed By: #### B MP, ANEU, GFR, ADIFF, CBC ####[place] [address] CO2 [Moles/Vol] 27 mmol/L Normal 22-32 [facility] Comment on above: Performed By: #### B MP, ANEU, GFR, ADIFF, CBC ####[place] [address] Creatinine [Mass/Vol] 0.90 mg/dL Normal 0.50-1.20 [facility] MA[facility] Comment on above: Result Comment: Test ing performed on Connected analyzer using enzymatic creatinine methodology. Performed By: #### B MP, ANEU, GFR, ADIFF, CBC ####[place] [address] Electrolyte Balance 6.0 mEq/L Normal 4.0-15.0 [facility] MAIN Comment on above: Performed By: #### B MP, ANEU, GFR, ADIFF, CBC ####[place] [address] Glucose [Mass/Vol] 85 mg/dL Normal 70-110 [facility] Comment on above: Performed By: #### B MP, ANEU, GFR, ADIFF, CBC ####[place] [address] Potassium [Moles/Vol] 4.4 mmol/L Normal 3.5-5.0 [facility] Comment on above: Performed By: #### B MP, ANEU, GFR, ADIFF, CBC ####[place] [address] Sodium [Moles/Vol] 143 mmol/L Normal 136-145 [facility] Comment on above: Performed By: #### B MP, ANEU, GFR, ADIFF, CBC ####[place] [address] Urea nitrogen [Mass/Vol] 12.0 mg/dL Normal 8.0-22.0 [facility] Comment on above: Performed By: #### B MP, ANEU, GFR, ADIFF, CBC ####[place] [address] CBCon 08-06-2024 Erythrocyte distribution width (RBC) [Ratio] 16.0 % High 11.5-15.5 [facility] Comment on above: Performed By: #### B MP, ANEU, GFR, ADIFF, CBC ####[place] [address] Hematocrit (Bld) [Volume fraction] 40.0 % Normal 34.0-46.0 [facility] Comment on above: Performed By: #### B MP, ANEU, GFR, ADIFF, CBC ####[place] [address] Hgb 13.5 G/dL Normal 12.0-16.0 [facility] Comment on above: Performed By: #### B MP, ANEU, GFR, ADIFF, CBC ####[place] [address] MCH (RBC) [Entitic mass] 32.6 pg Normal 27.0-33.0 [facility] Comment on above: Performed By: #### B MP, ANEU, GFR, ADIFF, CBC ####[place] [address] MCHC 33.8 G/dL Normal 32.0-36.0 [facility] Comment on above: Performed By: #### B MP, ANEU, GFR, ADIFF, CBC ####[place] [address] MCV (RBC) [Entitic vol] 96.4 fL Normal 80.0-99.0 [facility] Comment on above: Performed By: #### B MP, ANEU, GFR, ADIFF, CBC ####[place] [address] Platelet 429 10 3/mcL Normal 150-450 [facility] Comment on above: Performed By: #### B MP, ANEU, GFR, ADIFF, CBC ####[place] [address] Platelet mean volume (Bld) [Entitic vol] 7.4 fL Normal 6.6-10.5 [facility] MA[facility] Comment on above: Performed By: #### B MP, ANEU, GFR, ADIFF, CBC ####[place] [address] RBC 4.15 10 6/mcL Normal 4.10-5.30 [facility] Comment on above: Performed By: #### B MP, ANEU, GFR, ADIFF, CBC ####[place] [address] WBC 8.9 10 3/mcL Normal 4.5-10.8 [facility] Comment on above: Performed By: #### B MP, ANEU, GFR, ADIFF, CBC ####[place] [address] LABORATORYOrdered By: SYSTEM SYSTEM on 08-06-2024 Basophils (Bld) [#/Vol] 0.1 103/mcL Normal 0.0 - 0.3 10^3/mcL AH Workflow SS Basophils/100 WBC (Bld) 1.2 % Normal 0.0 - 2.5 % Workflow SS Calcium [Mass/Vol] 10.7 mg/dL High 8.7 - 10. 4 mg/dL ADM SS Chloride [Moles/Vol] 110 mmol/L Normal 98 - 11 0 mEq/L ADM SS CO2 [Moles/Vol] 27 mmol/L Normal 22 - 32 mEq/L ADM SS Creatinine [Mass/Vol] 0.90 mg/dL Normal 0.50 - 1.20 mg/dL ADM SS Comment on above: Interpretive Data: T esting performed on Connected analyzer using enzymatic creatinine methodology. Electrolyte Balance 6.0 mEq/L Normal 4.0 - 15 .0 mEq/L ADM SS Eosinophils (Bld) [#/Vol] 0.4 103/mcL Normal 0.0 - 0.7 10^3/mcL Workflow SS Eosinophils/100 WBC (Bld) 4.3 % Normal 0.0 - 6.0 % Workflow SS Erythrocyte distribution width (RBC) [Ratio] 16.0 % High 11.5 - 15.5 % Workflow SS GFR/1.73 sq M.predicted among blacks MDRD (S/P/Bld) [Vol rate/Area] ml/min/1.73sqm Invalid Interpretation Code Pollen - [employer] Chemistry S Comment on above: Interpretive Data: GFR Population mean for , Non- Americans Ages 20-29 = 116 mL/min/1.73 sq.m. Ages 30-39 = 107 mL/min/1.73 sq.m. Ages 40-49 = 99 mL/min/1.73 sq.m. Ages 50-59 = 93 mL/min/1.73 sq.m. Ages 60-69 = 85 mL/min/1.73 sq.m. Ages 70+ = 75 mL/min/1.73 sq.m. Chronic Kidney Disease: Less than 60 mL/min/1.73 square meters End Stage Renal Disease: Less than 15 mL/min/1.73 square meters GFR/1.73 sq M.predicted among non-blacks MDRD (S/P/Bld) [Vol rate/Area] ml/min/1.73sqm Invalid Interpretation Code Pollen - [employer] Chemistry S Comment on above: Interpretive Data: GFR Population mean for , Non- Americans Ages 20-29 = 116 mL/min/1.73 sq.m. Ages 30-39 = 107 mL/min/1.73 sq.m. Ages 40-49 = 99 mL/min/1.73 sq.m. Ages 50-59 = 93 mL/min/1.73 sq.m. Ages 60-69 = 85 mL/min/1.73 sq.m. Ages 70+ = 75 mL/min/1.73 sq.m. Chronic Kidney Disease: Less than 60 mL/min/1.73 square meters End Stage Renal Disease: Less than 15 mL/min/1.73 square meters Glucose [Mass/Vol] 85 mg/dL Normal 70 - 110 mg/dL AH ADM SS Hematocrit (Bld) [Volume fraction] 40.0 % Normal 34.0 - 46.0 % AH Workflow SS Hemoglobin (Bld) [Mass/Vol] 13.5 G/dL Normal 12.0 - 16.0 G/dL AH Workflow SS Lymphocytes (Bld) [#/Vol] 1.8 103/mcL Normal 0.9 - 4.3 10^3/mcL AH Workflow SS Lymphocytes/100 WBC (Bld) 20.0 % Normal 20.0 - 40.0 % AH Workflow SS MCH (RBC) [Entitic mass] 32.6 pg Normal 27.0 - 33.0 pg AH Workflow SS MCHC 33.8 G/dL Normal 32.0 - 36.0 G/dL AH Workflow SS MCV (RBC) [Entitic vol] 96.4 fL Normal 80.0 - 99.0 fL AH Workflow SS Monocytes (Bld) [#/Vol] 0.5 103/mcL Normal 0.1 - 1.4 10^3/mcL AH Workflow SS Monocytes/100 WBC (Bld) 6.1 % Normal 2.0 - 13.0 % AH Workflow SS Neutrophils (Bld) [#/Vol] 6.1 103/mcL Normal 2.3 - 8.1 10^3/mcL AH Workflow SS Neutrophils/100 WBC (Bld) 68.4 % Normal 50.0 - 75.0 % AH Workflow SS Platelet mean volume (Bld) [Entitic vol] 7.4 fL Normal 6.6 - 10.5 fL AH Workflow SS Platelets (Bld) [#/Vol] 429 103/mcL Normal 150 - 450 10^3/mcL AH Workflow SS Potassium [Moles/Vol] 4.4 mmol/L Normal 3.5 - 5.0 mEq/L AH ADM SS RBC (Bld) [#/Vol] 4.15 106/mcL Normal 4.10 - 5.3 0 10^6/mcL AH Workflow SS Sodium [Moles/Vol] 143 mmol/L Normal 136 - 145 mEq/L AH ADM SS Urea nitrogen [Mass/Vol] 12.0 mg/dL Normal 8.0 - 22.0 mg/dL AH ADM SS Urea nitrogen/Creatinine [Mass ratio] 13.3 ratio Normal 10.0 - 22.0 ratio AH ADM SS WBC (Bld) [#/Vol] 8.9 103/mcL Normal 4.5 - 10.8 10^3/mcL Workflow SS CBC + DIFFon 07-10-2024 Baso # 0.04 x10EE3/UL Normal 0.00 - 0.10 [facility] Comment on above: Performed By: #### 2 52538 ####[place] [address] Basophils/100 WBC (Bld) 0.3 % Normal 0.0 - 2.0 [facility] Comment on above: Performed By: #### 2 64636 ####[place] [address] CBC + DIFF Normal [facility] Comment on above: Result Comment: CBC- COMPLETE BLOOD COUNT Performed By: #### 2 73234 ####[place] [address] EO # 0.37 x10EE3/UL Normal 0.00 - 0.50 [facility] Comment on above: Performed By: #### 2 63499 ####[place] [id number] Eosinophils/100 WBC (Bld) 3.1 % Normal 0.0 - 7.0 [facility] Comment on above: Performed By: #### 2 25219 ####[facility],[address] [place] [address] Erythrocyte distribution width (RBC) [Ratio] 14.5 % Normal 12.0 - 15.6 [facility] Comment on above: Performed By: #### 2 18082 ####[facility],[address] [place] [address] Hematocrit (Bld) [Volume fraction] 43.4 % Normal 34.0 - 46.0 [facility] Comment on above: Performed By: #### 2 19979 ####[facility],[address] [place] [address] Hemoglobin (Bld) [Mass/Vol] 15.0 g/dL Normal 12.0 - 16.0 [facility] Comment on above: Performed By: #### 2 47207 ####[facility],[address] [place] [address] Lymph # 2.32 x10EE3/UL Normal 0.80 - 2.80 [facility] Comment on above: Performed By: #### 2 71916 ####[facility],[address] [place] [address] Lymphocytes/100 WBC (Bld) 19.9 % Low 20.0 - 45.0 [facility] Comment on above: Performed By: #### 2 31449 ####[facility],[address] [place] [address] MANUAL DIFF N/A Normal [facility] Comment on above: Performed By: #### 2 45898 ####[facility],[address] [place], [place] [id number] MCH (RBC) [Entitic mass] 32 pg Normal 27 - 33 [facility] Comment on above: Performed By: #### 2 20285 ####[facility],[address] [place] [address] MCHC 35 X10 3 Normal 32 - 36 [facility] Comment on above: Performed By: #### 2 10918 ####[facility],[address] [place] [address] MCV (RBC) [Entitic vol] 94 fL Normal 80 - 99 J l [facility] Comment on above: Performed By: #### 2 62717 ####[facility],[address] [place] [address] [place] # 0.68 x10EE3/UL Normal 0.20 - 1.00 [facility] Comment on above: Performed By: #### 2 92316 ####[facility],[address] [place] [address] MONOS % 5.8 % Normal 0.0 - 10.0 [facility] Comment on above: Performed By: #### 2 36191 ####[facility],[address] [place] [address] Morphology Efra (Bld) [Interp] N/A Normal [facility] Comment on above: Performed By: #### 2 29957 ####[facility],[address] [place] [address] Neut # 8.28 x10EE3/UL High 1.50 - 7.10 [facility] Comment on above: Performed By: #### 2 18536 ####[facility],[address] [place] [address] Neutrophils/100 WBC (Bld) 70.9 % Normal 46.0 - 76.0 [facility] Comment on above: Performed By: #### 2 33828 ####[facility],[address] [place] [address] PLATELET 398 x10EE3/UL Normal 150 - 450 [facility] Comment on above: Performed By: #### 2 51723 ####[facility],[address] [place] [address] Platelet mean volume (Bld) [Entitic vol] 6.5 fL Low 6.6 - 10.5 [facility] Comment on above: Result Comment: AUTO MATED DIFFERENTIAL Performed By: #### 2 62261 ####[place] [address],[place] [address] RBC 4.62 x 10EE6/UL Normal 4.10 - 5.30 [facility] Comment on above: Performed By: #### 2 11023 ####[facility],[address] [place] [address] WBC 11.7 x 10EE3/UL High 4.5 - 10.8 [facility] Comment on above: Performed By: #### 2 48568 ####[facility],[address] [place] [address] 15136 CMP with eGFRon 07-10-2024 AGE 33 years Normal [facility] Comment on above: Performed By: #### 2 60132 ####[facility],[address] [place] [address]6513 Albumin [Mass/Vol] 3.8 g/dL Normal 3.4 - 5.0 [facility] Comment on above: Performed By: #### 2 10952 ####[facility],[address] [place] [address] 42707 Albumin/Globulin [Mass ratio] 1.2 {ratio} Normal 0.9 - 1.6 [facility] Comment on above: Performed By: #### 2 26787 ####[facility],[address] [place] [address] 08448 ALK PHOS 99 U/L Normal 46 - 116 [facility] Comment on above: Performed By: #### 2 10344 ####[facility],[address] [place] [address] 22773 ALT [Catalytic activity/Vol] 13 U/L Low 16 - 63 [facility] Comment on above: Performed By: #### 2 73261 ####[facility],[address] [place] [address] 84757 Anion gap [Moles/Vol] 17 mmol/L Normal 10 - 20 [facility] Comment on above: Performed By: #### 2 78389 ####[facility],[address] [place] [address] 22405 AST [Catalytic activity/Vol] 19 U/L Normal 13 - 39 [facility] Comment on above: Performed By: #### 2 08645 ####[facility],[address] [place] [address] 94485 B/C RATIO 6 ratio Normal 0 - 30 [facility] Comment on above: Performed By: #### 2 68225 ####[facility],[address] [place] [address] 22609 Bilirubin [Mass/Vol] 0.3 mg/dL Normal 0.2 - 1.0 [facility] Comment on above: Performed By: #### 2 82913 ####[facility],[address] [place] [address] 00459 Calcium [Mass/Vol] 9.3 mg/dL Normal 8.5 - 10.1 [facility] Comment on above: Performed By: #### 2 25587 ####[facility],[address] [place] [address] 47162 Chloride [Moles/Vol] 102 mmol/L Normal 98 - 107 [facility] Comment on above: Performed By: #### 2 75015 ####[facility],[address] [place] [address] 26502 CMP with eGFR Normal [facility] Comment on above: Result Comment: COMP REHENSIVE METABOLIC PANEL Performed By: #### 2 52512 ####[facility],[address] [place] [address] 70499 CO2 [Moles/Vol] 26.3 mmol/L Normal 21.0 - 32.0 [facility] Comment on above: Performed By: #### 2 91091 ####[facility],[address] [place] [address] 59113 Creatinine [Mass/Vol] 1.00 mg/dL Normal 0.55 - 1.02 [facility] Comment on above: Performed By: #### 2 91663 ####[facility],[address] [place] [address] 46916 GFR/1.73 sq M.predicted among non-blacks MDRD (S/P/Bld) [Vol rate/Area] mL/min/{1.73_m2} Normal 60 - 999 [facility] Comment on above: Performed By: #### 2 28046 ####[facility],[address] [place] [address] 07144 Result Comment: ACCO RDING TO THE NATIONAL KIDNEY DISEASE EDUCATION PROGRAM(NKDE), A NORMAL eGFRIS A VALUE GREATER THAN OR EQUAL TO 60 ML/MIN/1.73 SQ METERS.CHRONIC KIDNEY DISEASE: <60mL/MIN/1.73 SQ METERSKIDNEY FAILURE: <15mL/MIN/1.73 SQ METERSTHIS TEST SHOULD ONLY BE USED FOR PATIENTS 18 YEARS OF AGE AND OLDER. Globulin (S) [Mass/Vol] 3.2 g/dL Normal 1.5 - 3.8 [facility] Comment on above: Performed By: #### 2 21854 ####[facility],[address] [place] [address] 62014 Glucose [Mass/Vol] 99 mg/dL Normal 74 - 106 [facility] Comment on above: Performed By: #### 2 24003 ####[facility],[address] [place] [address] 28611 Potassium [Moles/Vol] 4.0 mmol/L Normal 3.5 - 5.1 [facility] Comment on above: Performed By: #### 2 19610 ####[facility],[address] [place] [address] 12489 Protein [Mass/Vol] 7.0 g/dL Normal 6.4 - 8.2 [facility] Comment on above: Performed By: #### 2 95879 ####[facility],[address] [place] [address] 54489 Sodium [Moles/Vol] 141 mmol/L Normal 136 - 145 [facility] Comment on above: Performed By: #### 2 71558 ####[facility],[address] [place] [address] 29759 Urea nitrogen [Mass/Vol] 6 mg/dL Low 7 - 18 [facility] Comment on above: Performed By: #### 2 14112 ####[facility],[address] [place] [address] 99649 URINALYSISon 07-10-2024 Amorphous NONE Normal [facility] Comment on above: Performed By: #### 2 23007 ####[facility],[address] [place] [address] Bacteria NONE Normal [facility] Comment on above: Performed By: #### 2 91674 ####[facility],[address] [place], [place] [id number] Bilirubin Ql (U) Negative Normal NORMAL: NEGATIVE [facility] Comment on above: Performed By: #### 2 79610 ####[facility],[address] [place], [place] [address] Casts NONE Normal [facility] Comment on above: Performed By: #### 2 56896 ####[facility],[address] [place], [place] [address] Clarity (U) clear Normal NORMAL: CLEAR [facility] Comment on above: Performed By: #### 2 47036 ####[facility],[address] [place], [place] [address] Color (U) yellow Normal NORMAL: YELLOW [facility] Comment on above: Performed By: #### 2 50437 ####[facility],[address] [place] [address] 28532 Crystals LM Nom (Urine sed) NONE Normal [facility] Comment on above: Performed By: #### 2 00004 ####[facility],[address] [place] [address] 34005 Epi Cells NONE Normal [facility] Comment on above: Performed By: #### 2 83837 ####[facility],[address] [place] [address] 11865 Glucose Ql (U) NORM Normal NORMAL: NORMAL [facility] Comment on above: Performed By: #### 2 65038 ####[facility],[address] [place] [address] 14931 Hemoglobin Ql (U) 10 Abnormal NORMAL: NEGATIVE [facility] Comment on above: Performed By: #### 2 15788 ####[facility],[address] [place] [address] 20653 Ketone Negative Normal NORMAL: NEGATIVE [facility] Comment on above: Performed By: #### 2 99332 ####[facility],[address] [place] [address] 64008 Leukocytes 25 Abnormal NORMAL: NEGATIVE [facility] Comment on above: Performed By: #### 2 01708 ####[facility],[address] [place] [address] 19096 Mucous NONE Normal [facility] Comment on above: Performed By: #### 2 69890 ####[facility],[address] [place] [address] 10753 Nitrite Ql (U) Negative Normal NORMAL: NEGATIVE [facility] Comment on above: Performed By: #### 2 85824 ####[facility],[address] [place] [address] 36887 pH (U) 8 [pH] Normal NORMAL: 5.0-8.0 [facility] Comment on above: Performed By: #### 2 93772 ####[facility],[address] [place] [address] 11244 Protein Ql (U) 15 Abnormal NORMAL: NEGATIVE [facility] Comment on above: Performed By: #### 2 42755 ####[facility],[address] [place] [address] 68794 Rbc NONE Normal 0-3/hpf [facility] Comment on above: Performed By: #### 2 06987 ####[facility],[address] [place] [address] Sp [place] 1.010 Normal NORMAL: 1.010-1.030 [facility] Comment on above: Performed By: #### 2 45775 ####[facility],[address] [place] [address] Specimen Type UNSPECIFIED Normal [facility] Comment on above: Performed By: #### 2 29070 ####[facility],[address] [place] [address] Urinalysis dipstick W Reflex Microscopic panel (U) SEE BELOW Normal [facility] Comment on above: Result Comment: MICR OSCOPIC Performed By: #### 2 38169 ####[facility],[address] [place] [address] Urobilinog NORM Normal NORMAL: NORMAL [facility] Comment on above: Performed By: #### 2 39318 ####[facility],[address] [place], [place] [address] Wbc 1-5 Normal 0-5/hpf [facility] Comment on above: Performed By: #### 2 79588 ####[facility],[address] [place], [place] [address] Yeast NONE Normal [facility] Comment on above: Performed By: #### 2 88179 ####[facility],[address] [place], [place] [address] .GFRon 06-09-2024 GFR >60 Normal [facility] ([place]) Comment on above: Result Comment: GFR Population mean for , Non- Americans Ages 20-29 = 116 mL/min/1.73 sq.m. Ages 30-39 = 107 mL/min/1.73 sq.m. Ages 40-49 = 99 mL/min/1.73 sq.m. Ages 50-59 = 93 mL/min/1.73 sq.m. Ages 60-69 = 85 mL/min/1.73 sq.m. Ages 70+ = 75 mL/min/1.73 sq.m. Chronic Kidney Disease: Less than 60 mL/min/1.73 square meters End Stage Renal Disease: Less than 15 mL/min/1.73 square meters Performed By: #### Deondre VALDES, BMP #### [address] [address] GFR Non- >60 Normal [facility] ([place]) Comment on above: Result Comment: GFR Population mean for , Non- Americans Ages 20-29 = 116 mL/min/1.73 sq.m. Ages 30-39 = 107 mL/min/1.73 sq.m. Ages 40-49 = 99 mL/min/1.73 sq.m. Ages 50-59 = 93 mL/min/1.73 sq.m. Ages 60-69 = 85 mL/min/1.73 sq.m. Ages 70+ = 75 mL/min/1.73 sq.m. Chronic Kidney Disease: Less than 60 mL/min/1.73 square meters End Stage Renal Disease: Less than 15 mL/min/1.73 square meters Performed By: #### Deondre VALDES, BMP #### [address] [address] [facility] BUN/Creatinine Ratio 14.1 ratio Normal 10.0-22.0 [facility] ([place]) Comment on above: Performed By: #### Deondre VALDES, BMP #### [address] [address] Calcium [Mass/Vol] 9.0 mg/dL Normal 8.7-10.4 [facility] ([place]) Comment on above: Performed By: #### Deondre VALDES, BMP #### [address] [address] Chloride [Moles/Vol] 113 mmol/L High 98-110 [facility] ([place]) Comment on above: Performed By: #### Deondre VALDES, BMP #### [address] [address] CO2 [Moles/Vol] 22 mmol/L Normal 22-32 [facility] ([place]) Comment on above: Performed By: #### Deondre VALDES, BMP #### [address] [address] Creatinine [Mass/Vol] 0.85 mg/dL Normal 0.50-1.20 [facility] ([place]) Comment on above: Performed By: #### Deondre VALDES, BMP #### [address] [address] Electrolyte Balance 5.0 mEq/L Normal 4.0-15.0 [facility] ([place]) Comment on above: Performed By: #### Deondre VALDES, BMP #### [address] [address] Glucose [Mass/Vol] 98 mg/dL Normal 70-110 [facility] ([place]) Comment on above: Performed By: #### Deondre VALDES, BMP #### [place] [address] Potassium [Moles/Vol] 4.2 mmol/L Normal 3.5-5.0 [facility] ([place]) Comment on above: Result Comment: Spec imen slightly hemolyzed. Performed By: #### Deondre VALDES, BMP #### [place] [address] Sodium [Moles/Vol] 140 mmol/L Normal 136-145 [facility] ([place]) Comment on above: Performed By: #### Deondre VALDES, BMP #### [address] [address] Urea nitrogen [Mass/Vol] 12.0 mg/dL Normal 8.0-22.0 [facility] ([place]) Comment on above: Performed By: #### Deondre VALDES, BMP #### [address] [address] LABORATORYOrdered By: Tamia Woodson on 06-09-2024 Beta HCG ( test) Ql (U) Negative (06/09/24 7:24 AM) [facility] Work Phone: LABORATORYOrdered By: SYSTEM SYSTEM on 06-09-2024 Calcium [Mass/Vol] 9.0 mg/dL Normal 8.7 - 10. 4 mg/dL AH ADM SS Chloride [Moles/Vol] 113 mmol/L High 98 - 11 0 mEq/L ADM SS CO2 [Moles/Vol] 22 mmol/L Normal 22 - 32 mEq/L ADM SS Creatinine [Mass/Vol] 0.85 mg/dL Normal 0.50 - 1.20 mg/dL ADM SS Electrolyte Balance 5.0 mEq/L Normal 4.0 - 15 .0 mEq/L ADM SS GFR/1.73 sq M.predicted among blacks MDRD (S/P/Bld) [Vol rate/Area] ml/min/1.73sqm Invalid Interpretation Code Chemistry S Comment on above: Interpretive Data: GFR Population mean for , Non- Americans Ages 20-29 = 116 mL/min/1.73 sq.m. Ages 30-39 = 107 mL/min/1.73 sq.m. Ages 40-49 = 99 mL/min/1.73 sq.m. Ages 50-59 = 93 mL/min/1.73 sq.m. Ages 60-69 = 85 mL/min/1.73 sq.m. Ages 70+ = 75 mL/min/1.73 sq.m. Chronic Kidney Disease: Less than 60 mL/min/1.73 square meters End Stage Renal Disease: Less than 15 mL/min/1.73 square meters GFR/1.73 sq M.predicted among non-blacks MDRD (S/P/Bld) [Vol rate/Area] ml/min/1.73sqm Invalid Interpretation Code [employer] Chemistry S Comment on above: Interpretive Data: GFR Population mean for , Non- Americans Ages 20-29 = 116 mL/min/1.73 sq.m. Ages 30-39 = 107 mL/min/1.73 sq.m. Ages 40-49 = 99 mL/min/1.73 sq.m. Ages 50-59 = 93 mL/min/1.73 sq.m. Ages 60-69 = 85 mL/min/1.73 sq.m. Ages 70+ = 75 mL/min/1.73 sq.m. Chronic Kidney Disease: Less than 60 mL/min/1.73 square meters End Stage Renal Disease: Less than 15 mL/min/1.73 square meters Glucose [Mass/Vol] 98 mg/dL Normal 70 - 110 mg/dL ADM SS Potassium [Moles/Vol] 4.2 mmol/L Normal 3.5 - 5.0 mEq/L ADM SS Comment on above: Result Comment: Spec imen slightly hemolyzed. Sodium [Moles/Vol] 140 mmol/L Normal 136 - 145 mEq/L ADM SS Urea nitrogen [Mass/Vol] 12.0 mg/dL Normal 8.0 - 22.0 mg/dL ADM SS Urea nitrogen/Creatinine [Mass ratio] 14.1 ratio Normal 10.0 - 22.0 ratio ADM SS CBC + DIFFon 05-25-2024 Baso # 0.02 x10EE3/UL Normal 0.00 - 0.10 [facility] Comment on above: Performed By: #### 2 87684 ####[facility],[address] [place] [address] Basophils/100 WBC (Bld) 0.1 % Normal 0.0 - 2.0 [facility] Comment on above: Performed By: #### 2 84109 ####[facility],[address] [place] [address] CBC + DIFF Normal [facility] Comment on above: Result Comment: CBC- COMPLETE BLOOD COUNT Performed By: #### 2 65888 ####[place] [address] EO # 0.09 x10EE3/UL Normal 0.00 - 0.50 [facility] Comment on above: Performed By: #### 2 96530 ####[place] [address] Eosinophils/100 WBC (Bld) 0.6 % Normal 0.0 - 7.0 [facility] Comment on above: Performed By: #### 2 80751 ####[place] [address] Erythrocyte distribution width (RBC) [Ratio] 14.0 % Normal 12.0 - 15.6 [facility] Comment on above: Performed By: #### 2 90533 ####[place] [address] Hematocrit (Bld) [Volume fraction] 44.3 % Normal 34.0 - 46.0 [facility] Comment on above: Performed By: #### 2 65657 ####[facility],[address] [place], [place] [address] Hemoglobin (Bld) [Mass/Vol] 14.8 g/dL Normal 12.0 - 16.0 [facility] [facility] Comment on above: Performed By: #### 2 89455 ####[facility],[address] [place] [address] Lymph # 1.28 x10EE3/UL Normal 0.80 - 2.80 [facility] Comment on above: Performed By: #### 2 30766 ####[facility],[address] [place], [place] [address] Lymphocytes/100 WBC (Bld) 8.4 % Low 20.0 - 45.0 [facility] Comment on above: Performed By: #### 2 40945 ####[facility],[address] [place] [address] 82628 MANUAL DIFF N/A Normal [facility] Comment on above: Performed By: #### 2 02323 ####[facility],[address] [place] [address] 85116 MCH (RBC) [Entitic mass] 32 pg Normal 27 - 33 [facility] Comment on above: Performed By: #### 2 40007 ####[facility],[address] [place] [address] 52815 MCHC 33 X10 3 Normal 32 - 36 [facility] Comment on above: Performed By: #### 2 94915 ####[facility],[address] [place] [address] 72574 MCV (RBC) [Entitic vol] 96 fL Normal 80 - 99 [facility] Comment on above: Performed By: #### 2 26143 ####[facility],[address] [place], [place] [address] [place] # 0.24 x10EE3/UL Normal 0.20 - 1.00 [facility] Comment on above: Performed By: #### 2 76545 ####[facility],[address] [place] [address] 95568 MONOS % 1.6 % Normal 0.0 - 10.0 [facility] Comment on above: Performed By: #### 2 05857 ####[facility],[address] [place] [address] Morphology Efra (Bld) [Interp] N/A Normal [facility] Comment on above: Performed By: #### 2 07714 ####[facility],[address] [place] [address] Neut # 13.63 x10EE3/UL High 1.50 - 7.10 [facility] Comment on above: Performed By: #### 2 39258 ####[facility],[address] [place] [address] Neutrophils/100 WBC (Bld) 89.4 % High 46.0 - 76.0 [facility] Comment on above: Performed By: #### 2 60268 ####[facility],[address] [place] [address] PLATELET 472 x10EE3/UL High 150 - 450 [facility] Comment on above: Performed By: #### 2 91587 ####[facility],[address] [place] [address] Platelet mean volume (Bld) [Entitic vol] 6.9 fL Normal 6.6 - 10.5 [facility] Comment on above: Result Comment: AUTO MATED DIFFERENTIAL Performed By: #### 2 08922 ####[facility],[address] [place], [place] [address] RBC 4.63 x 10EE6/UL Normal 4.10 - 5.30 [facility] Comment on above: Performed By: #### 2 98278 ####[facility],[address] [place] [address] 93258 WBC 15.3 x 10EE3/UL High 4.5 - 10.8 [facility] Comment on above: Performed By: #### 2 19298 ####[facility],[address] [place] [address] 87320 Baso # 0.06 x10EE3/UL Normal 0.00 - 0.10 [facility] Comment on above: Performed By: #### 2 41775 ####[facility],[address] [place] [address] 48812 Basophils/100 WBC (Bld) 0.3 % Normal 0.0 - 2.0 [facility] Comment on above: Performed By: #### 2 11513 ####[facility],[address] [place] [address] CBC + DIFF Normal [facility] Comment on above: Result Comment: CBC- COMPLETE BLOOD COUNT Performed By: #### 2 86762 ####[facility],[address] [place] [address] 32742 EO # 0.46 x10EE3/UL Normal 0.00 - 0.50 [facility] Comment on above: Performed By: #### 2 02905 ####[facility],[address] [place] [address] 46596 Eosinophils/100 WBC (Bld) 2.1 % Normal 0.0 - 7.0 [facility] Comment on above: Performed By: #### 2 46340 ####[facility],[address] [place] [address] 43296 Erythrocyte distribution width (RBC) [Ratio] 13.9 % Normal 12.0 - 15.6 [facility] Comment on above: Performed By: #### 2 63389 ####[facility],[address] [place] [address] 96687 Hematocrit (Bld) [Volume fraction] 47.1 % High 34.0 - 46.0 [facility] Comment on above: Performed By: #### 2 58875 ####[facility],[address] [place] [address] 18852 Hemoglobin (Bld) [Mass/Vol] 15.7 g/dL Normal 12.0 - 16.0 [facility] Comment on above: Performed By: #### 2 09308 ####[facility],[address] [place], [place] [address] Lymph # 3.77 x10EE3/UL High 0.80 - 2.80 [facility] Comment on above: Performed By: #### 2 19557 ####[facility],[address] [place], [place] [address] Lymphocytes/100 WBC (Bld) 17.5 % Low 20.0 - 45.0 [facility] Comment on above: Performed By: #### 2 26788 ####[facility],[address] [place], [place] [address] MANUAL DIFF N/A Normal [facility] Comment on above: Performed By: #### 2 02560 ####[facility],[address] [place] [address] 26826 MCH (RBC) [Entitic mass] 32 pg Normal 27 - 33 [facility] Comment on above: Performed By: #### 2 56310 ####[facility],[address] [place] [address] 52513 MCHC 33 X10 3 Normal 32 - 36 [facility] Comment on above: Performed By: #### 2 48869 ####[facility],[address] [place] [address] 35006 MCV (RBC) [Entitic vol] 96 fL Normal 80 - 99 [facility] Comment on above: Performed By: #### 2 97616 ####[facility],[address] [place] [address] 02287 [place] # 1.23 x10EE3/UL High 0.20 - 1.00 [facility] Comment on above: Performed By: #### 2 18773 ####[facility],[address] [place] [address] 75748 MONOS % 5.7 % Normal 0.0 - 10.0 [facility] Comment on above: Performed By: #### 2 17369 ####[facility],[address] [place] [address] 69688 Morphology Efra (Bld) [Interp] N/A Normal [facility] Comment on above: Performed By: #### 2 49110 ####[facility],[address] [place] [address] 08199 Neut # 16.07 x10EE3/UL High 1.50 - 7.10 [facility] Comment on above: Performed By: #### 2 23761 ####[facility],[address] [place] [address] 48442 Neutrophils/100 WBC (Bld) 74.5 % Normal 46.0 - 76.0 [facility] Comment on above: Performed By: #### 2 50090 ####[facility],[address] [place] [address] 36704 PLATELET 476 x10EE3/UL High 150 - 450 [facility] Comment on above: Performed By: #### 2 99978 ####[facility],[address] [place] [address] 86559 Platelet mean volume (Bld) [Entitic vol] 7.2 fL Normal 6.6 - 10.5 [facility] Comment on above: Result Comment: AUTO MATED DIFFERENTIAL Performed By: #### 2 62213 ####[facility],[address] [place] [address] 57119 RBC 4.92 x 10EE6/UL Normal 4.10 - 5.30 [facility] Comment on above: Performed By: #### 2 86317 ####[facility],[address] [place] [address] 25900 WBC 21.6 x 10EE3/UL High 4.5 - 10.8 [facility] Comment on above: Performed By: #### 2 94521 ####[facility],[address] [place] [address] 19172 CMP with eGFRon 05-25-2024 AGE 33 years Normal [facility] Comment on above: Performed By: #### 2 95642 ####[facility],[address] [place] [address] 20415 Albumin [Mass/Vol] 3.9 g/dL Normal 3.4 - 5.0 [facility] Comment on above: Performed By: #### 2 95125 ####[facility],[address] [place] [address] 11549 Albumin/Globulin [Mass ratio] 1.0 {ratio} Normal 0.9 - 1.6 [facility] Comment on above: Performed By: #### 2 33568 ####[facility],[address] [place] [address] 46052 ALK PHOS 102 U/L Normal 46 - 116 [facility] Comment on above: Performed By: #### 2 25424 ####[facility],[address] [place] [address] 58966 ALT [Catalytic activity/Vol] 20 U/L Normal 16 - 63 [facility] Comment on above: Performed By: #### 2 81707 ####[facility],[address] [place] [address] 36122 Anion gap [Moles/Vol] 14 mmol/L Normal 10 - 20 [facility] Comment on above: Performed By: #### 2 91938 ####[facility],[address] [place] [address] 51796 AST [Catalytic activity/Vol] 28 U/L Normal 13 - 39 [facility] Comment on above: Performed By: #### 2 22657 ####[facility],[address] [place] [address] 75583 B/C RATIO 8 ratio Normal 0 - 30 [facility] Comment on above: Performed By: #### 2 36924 ####[facility],[address] [place] [address] 65296 Bilirubin [Mass/Vol] 0.4 mg/dL Normal 0.2 - 1.0 [facility] Comment on above: Performed By: #### 2 39084 ####[facility],[address] [place] [address] 22536 Calcium [Mass/Vol] 9.5 mg/dL Normal 8.5 - 10.1 [facility] Comment on above: Performed By: #### 2 23985 ####[facility],[address] [place], [place] [address] Chloride [Moles/Vol] 105 mmol/L Normal 98 - 107 [facility] Comment on above: Performed By: #### 2 51318 ####[facility],[address] [place] [address] CMP with eGFR Normal [facility] Comment on above: Result Comment: COMP REHENSIVE METABOLIC PANEL Performed By: #### 2 04095 ####[facility],[address] [place] [address] 58738 CO2 [Moles/Vol] 26.3 mmol/L Normal 21.0 - 32.0 [facility] Comment on above: Performed By: #### 2 63379 ####[facility],[address] [place] [address] 92073 Creatinine [Mass/Vol] 0.97 mg/dL Normal 0.55 - 1.02 [facility] Comment on above: Performed By: #### 2 84842 ####[facility],[address] [place] [address] 04390 GFR/1.73 sq M.predicted among non-blacks MDRD (S/P/Bld) [Vol rate/Area] mL/min/{1.73_m2} Normal 60 - 999 [facility] Comment on above: Performed By: #### 2 03458 ####[facility],[address] [place] [address] 77485 Result Comment: ACCO RDING TO THE NATIONAL KIDNEY DISEASE EDUCATION PROGRAM(NKDE), A NORMAL eGFRIS A VALUE GREATER THAN OR EQUAL TO 60 ML/MIN/1.73 SQ METERS.CHRONIC KIDNEY DISEASE: <60mL/MIN/1.73 SQ METERSKIDNEY FAILURE: <15mL/MIN/1.73 SQ METERSTHIS TEST SHOULD ONLY BE USED FOR PATIENTS 18 YEARS OF AGE AND OLDER. Globulin (S) [Mass/Vol] 4.0 g/dL High 1.5 - 3.8 [facility] Comment on above: Performed By: #### 2 97245 ####[facility],[address] [place], [place] [address] Glucose [Mass/Vol] 117 mg/dL High 74 - 106 [facility] Comment on above: Performed By: #### 2 61680 ####[facility],[address] [place] [address] 65550 Potassium [Moles/Vol] 4.4 mmol/L Normal 3.5 - 5.1 [facility] Comment on above: Result Comment: SLIG HT HEMOLYSIS Performed By: #### 2 36152 ####[address] [address] Protein [Mass/Vol] 7.9 g/dL Normal 6.4 - 8.2 [facility] Comment on above: Performed By: #### 2 09331 ####[facility],[address] [place] [address] 51859 Sodium [Moles/Vol] 141 mmol/L Normal 136 - 145 [facility] Comment on above: Performed By: #### 2 11659 ####[facility],[address] [place] [address] 90630 Urea nitrogen [Mass/Vol] 8 mg/dL Normal 7 - 18 [facility] Comment on above: Performed By: #### 2 58247 ####[facility],[address] [place] [address] AGE 33 years Normal [facility] Comment on above: Performed By: #### 2 95043 ####[facility],[address] [place] [address] 84214 Albumin [Mass/Vol] 3.5 g/dL Normal 3.4 - 5.0 [facility] Comment on above: Performed By: #### 2 96442 ####[facility],[address] [place] [address] Albumin/Globulin [Mass ratio] 1.0 {ratio} Normal 0.9 - 1.6 [facility] Comment on above: Performed By: #### 2 41644 ####[facility],[address] [place] [address] 04506 ALK PHOS 93 U/L Normal 46 - 116 [facility] Comment on above: Performed By: #### 2 06267 ####[facility],[address] [place], [place] [address] ALT [Catalytic activity/Vol] 18 U/L Normal 16 - 63 [facility] Comment on above: Performed By: #### 2 68493 ####[facility],[address] [place], [place] [address] Anion gap [Moles/Vol] 12 mmol/L Normal 10 - 20 [facility] Comment on above: Performed By: #### 2 55391 ####[facility],[address] [place] [address] 97201 AST [Catalytic activity/Vol] 23 U/L Normal 13 - 39 [facility] Comment on above: Performed By: #### 2 74882 ####[facility],[address] [place], [place] [address] B/C RATIO 8 ratio Normal 0 - 30 [facility] Comment on above: Performed By: #### 2 23435 ####[facility],[address] [place] [address] 68655 Bilirubin [Mass/Vol] 0.2 mg/dL Normal 0.2 - 1.0 [facility] Comment on above: Performed By: #### 2 45279 ####[facility],[address] [place] [address] 05429 Calcium [Mass/Vol] 9.2 mg/dL Normal 8.5 - 10.1 [facility] Comment on above: Performed By: #### 2 20813 ####[facility],[address] [place], [place] [address] Chloride [Moles/Vol] 105 mmol/L Normal 98 - 107 [facility] Comment on above: Performed By: #### 2 23513 ####[facility],[address] [place] [address] CMP with eGFR Normal [facility] Comment on above: Result Comment: COMP REHENSIVE METABOLIC PANEL Performed By: #### 2 27373 ####[facility],[address] [place] [address] 36782 CO2 [Moles/Vol] 25.5 mmol/L Normal 21.0 - 32.0 [facility] Comment on above: Performed By: #### 2 03143 ####[facility],[address] [place], [place] [address] Creatinine [Mass/Vol] 0.90 mg/dL Normal 0.55 - 1.02 [facility] Comment on above: Performed By: #### 2 16746 ####[facility],[address] [place] [address] 98260 GFR/1.73 sq M.predicted among non-blacks MDRD (S/P/Bld) [Vol rate/Area] mL/min/{1.73_m2} Normal 60 - 999 [facility] Comment on above: Performed By: #### 2 78980 ####[facility],[address] [place] [address] Result Comment: ACCO RDING TO THE NATIONAL KIDNEY DISEASE EDUCATION PROGRAM(NKDE), A NORMAL eGFRIS A VALUE GREATER THAN OR EQUAL TO 60 ML/MIN/1.73 SQ METERS.CHRONIC KIDNEY DISEASE: <60mL/MIN/1.73 SQ METERSKIDNEY FAILURE: <15mL/MIN/1.73 SQ METERSTHIS TEST SHOULD ONLY BE USED FOR PATIENTS 18 YEARS OF AGE AND OLDER. Globulin (S) [Mass/Vol] 3.5 g/dL Normal 1.5 - 3.8 [facility] Comment on above: Performed By: #### 2 71017 ####[facility],[address] [place] [address] 48876 Glucose [Mass/Vol] 130 mg/dL High 74 - 106 [facility] Comment on above: Performed By: #### 2 20168 ####[facility],[address] [place] [address] 54626 Potassium [Moles/Vol] 3.4 mmol/L Low 3.5 - 5.1 [facility] Comment on above: Performed By: #### 2 43139 ####[facility],[address] [place] [address] 43145 Protein [Mass/Vol] 7.0 g/dL Normal 6.4 - 8.2 [facility] Comment on above: Performed By: #### 2 21452 ####[facility],[address] [place] [address] 58565 Sodium [Moles/Vol] 139 mmol/L Normal 136 - 145 [facility] Comment on above: Performed By: #### 2 76394 ####[facility],[address] [place] [address] 03317 Urea nitrogen [Mass/Vol] 7 mg/dL Normal 7 - 18 [facility] Comment on above: Performed By: #### 2 99973 ####[facility],[address] [place] [address] 79624 URINALYSISon 05-25-2024 Amorphous NONE Normal [facility] Comment on above: Performed By: #### 2 68955 ####[facility],[address] [place] [address] 99087 Bacteria NONE Normal [facility] Comment on above: Performed By: #### 2 46181 ####[facility],[address] [place] [address] 10653 Bilirubin Ql (U) Negative Normal NORMAL: NEGATIVE [facility] Comment on above: Performed By: #### 2 30316 ####[facility],[address] [place] [address] 22822 Casts NONE Normal [facility] Comment on above: Performed By: #### 2 67932 ####[facility],[address] [place] [address] 12927 Clarity (U) clear Normal NORMAL: CLEAR [facility] Comment on above: Performed By: #### 2 78153 ####[facility],[address] [place] [address] 67928 Color (U) yellow Normal NORMAL: YELLOW [facility] Comment on above: Performed By: #### 2 89492 ####[facility],[address] [place] [address] 90073 Crystals LM Nom (Urine sed) NONE Normal [facility] Comment on above: Performed By: #### 2 63076 ####[facility],[address] [place] [address] 27143 Epi Cells FEW Normal [facility] Comment on above: Performed By: #### 2 42160 ####[facility],[address] [place] [address] 56998 Glucose Ql (U) NORM Normal NORMAL: NORMAL [facility] Comment on above: Performed By: #### 2 93060 ####[facility],[address] [place] [address] 57800 Hemoglobin Ql (U) Negative Normal NORMAL: NEGATIVE [facility] Comment on above: Performed By: #### 2 89478 ####[facility],[address] [place] [address] 54457 Ketone 5 Abnormal NORMAL: NEGATIVE [facility] Comment on above: Performed By: #### 2 51172 ####[facility],[address] [place] [address] 66575 Leukocytes Negative Normal NORMAL: NEGATIVE [facility] Comment on above: Performed By: #### 2 95587 ####[facility],[address] [place] [address] 16177 Mucous NONE Normal [facility] Comment on above: Performed By: #### 2 27776 ####[facility],[address] [place] [address] 23513 Nitrite Ql (U) Negative Normal NORMAL: NEGATIVE [facility] Comment on above: Performed By: #### 2 79673 ####[facility],[address] [place] [address] 48856 pH (U) 8 [pH] Normal NORMAL: 5.0-8.0 [facility] Comment on above: Performed By: #### 2 26097 ####[facility],[address] [place] [address] 18797 Protein Ql (U) 15 Abnormal NORMAL: NEGATIVE [facility] Comment on above: Performed By: #### 2 92768 ####[facility],[address] [place] [address] 05557 Rbc NONE Normal 0-3/hpf [facility] Comment on above: Performed By: #### 2 34854 ####[facility],[address] [place] [address] 80985 Sp [place] 1.010 Normal NORMAL: 1.010-1.030 [facility] Comment on above: Performed By: #### 2 41011 ####[facility],[address] [place] [address] 07782 Specimen Type UNSPECIFIED Normal [facility] Comment on above: Performed By: #### 2 35374 ####[facility],[address] [place] [address] 67960 Urinalysis dipstick W Reflex Microscopic panel (U) SEE BELOW Normal [facility] Comment on above: Result Comment: MICR OSCOPIC Performed By: #### 2 29441 ####[facility],[address] [place] [address] Urobilinog NORM Normal NORMAL: NORMAL [facility] Comment on above: Performed By: #### 2 51267 ####[facility],[address] [place] [address] Wbc 1-5 Normal 0-5/hpf [facility] Comment on above: Performed By: #### 2 53101 ####[facility],[address] [place] [address] Yeast NONE Normal [facility] Comment on above: Performed By: #### 2 82762 ####[facility],[address] [place] [address] EMERGENCY REPORTon 4 EMERGENCY REPORT Normal [facility] URINE CULTURE [CCL]on 2023 Bacteria identified Cx Nom (U) Normal [facility] Comment on above: Performed By: #### 2 40972 ####[facility],[address] [place], [place] [address] C-REACTIVE PROTEINon 024 CRP 1.29 mg/dl High 0.00 - 0.90 [facility] Comment on above: Performed By: #### 2 50345 ####[facility],[address] [place], [place] [address] CBC + DIFFon 05-17-2024 Baso # 0.04 x10EE3/UL Normal 0.00 - 0.10 [facility] Comment on above: Performed By: #### 2 77343 ####[facility],[address] [place], [place] [address] Basophils/100 WBC (Bld) 0.4 % Normal 0.0 - 2.0 [facility] Comment on above: Performed By: #### 2 02804 ####[facility],[address] [place] [address] 14699 CBC + DIFF Normal [facility] Comment on above: Result Comment: CBC- COMPLETE BLOOD COUNT Performed By: #### 2 44915 ####[facility],[address] [place] [address] 01181 EO # 0.30 x10EE3/UL Normal 0.00 - 0.50 [facility] Comment on above: Performed By: #### 2 75426 ####[facility],[address] [place] [address] 15234 Eosinophils/100 WBC (Bld) 2.4 % Normal 0.0 - 7.0 [facility] Comment on above: Performed By: #### 2 56757 ####[facility],[address] [place], [place] [address] Erythrocyte distribution width (RBC) [Ratio] 13.8 % Normal 12.0 - 15.6 [facility] Comment on above: Performed By: #### 2 90987 ####[facility],[address] [place] [address] 74292 Hematocrit (Bld) [Volume fraction] 39.6 % Normal 34.0 - 46.0 [facility] Comment on above: Performed By: #### 2 13914 ####[facility],[address] [place] [address] 03183 Hemoglobin (Bld) [Mass/Vol] 13.5 g/dL Normal 12.0 - 16.0 [facility] Comment on above: Performed By: #### 2 81899 ####[facility],[address] [place] [address] 51507 Lymph # 2.55 x10EE3/UL Normal 0.80 - 2.80 [facility] Comment on above: Performed By: #### 2 49011 ####[facility],[address] [place] [address] 93602 Lymphocytes/100 WBC (Bld) 20.2 % Normal 20.0 - 45.0 [facility] Comment on above: Performed By: #### 2 89496 ####[facility],[address] [place] [address] MANUAL DIFF N/A Normal [facility] Comment on above: Performed By: #### 2 58423 ####[facility],[address] [place] [address] MCH (RBC) [Entitic mass] 33 pg Normal 27 - 33 [facility] Comment on above: Performed By: #### 2 14994 ####[facility],[address] [place] [address] MCHC 34 X10 3 Normal 32 - 36 [facility] Comment on above: Performed By: #### 2 32291 ####[facility],[address] [place] [address] MCV (RBC) [Entitic vol] 96 fL Normal 80 - 99 [facility] Comment on above: Performed By: #### 2 04186 ####[facility],[address] [place] [address] [place] # 1.01 x10EE3/UL High 0.20 - 1.00 [facility] Comment on above: Performed By: #### 2 43824 ####[facility],[address] [place] [address] MONOS % 8.0 % Normal 0.0 - 10.0 [facility] Comment on above: Performed By: #### 2 84777 ####[facility],[address] [place], [place] [address] Morphology Efra (Bld) [Interp] N/A Normal [facility] Comment on above: Performed By: #### 2 96862 ####[facility],[address] [place] [address] Neut # 8.73 x10EE3/UL High 1.50 - 7.10 [facility] Comment on above: Performed By: #### 2 36361 ####[facility],[address] [place] [address] 54582 Neutrophils/100 WBC (Bld) 69.1 % Normal 46.0 - 76.0 [facility] Comment on above: Performed By: #### 2 75310 ####[facility],[address] [place] [address] 69841 PLATELET 413 x10EE3/UL Normal 150 - 450 [facility] Comment on above: Performed By: #### 2 43752 ####[facility],[address] [place] [address] 17300 Platelet mean volume (Bld) [Entitic vol] 6.9 fL Normal 6.6 - 10.5 [facility] Comment on above: Result Comment: AUTO MATED DIFFERENTIAL Performed By: #### 2 31023 ####[facility],[address] [place] [address] 09736 RBC 4.12 x 10EE6/UL Normal 4.10 - 5.30 [facility] Comment on above: Performed By: #### 2 68025 ####[facility],[address] [place] [address] 20520 WBC 12.6 x 10EE3/UL High 4.5 - 10.8 [facility] Comment on above: Performed By: #### 2 50112 ####[facility],[address] [place] [address] 20104 CMP with eGFRon 05-17-2024 AGE 33 years Normal [facility] Comment on above: Performed By: #### 2 19994 ####[facility],[address] [place] [address] 05414 Albumin [Mass/Vol] 3.3 g/dL Low 3.4 - 5.0 [facility] Comment on above: Performed By: #### 2 25207 ####[facility],[address] [place] [address] 85084 Albumin/Globulin [Mass ratio] 0.9 {ratio} Normal 0.9 - 1.6 [facility] Comment on above: Performed By: #### 2 46816 ####[facility],[address] [place] [address] 88516 ALK PHOS 89 U/L Normal 46 - 116 [facility] Comment on above: Performed By: #### 2 46641 ####[facility],[address] [place] [address] 80772 ALT [Catalytic activity/Vol] 12 U/L Low 16 - 63 [facility] Comment on above: Performed By: #### 2 16870 ####[facility],[address] [place] [address] 32377 Anion gap [Moles/Vol] 13 mmol/L Normal 10 - 20 [facility] Comment on above: Performed By: #### 2 69539 ####[facility],[address] [place], [place] [address] AST [Catalytic activity/Vol] 13 U/L Normal 13 - 39 [facility] Comment on above: Performed By: #### 2 91407 ####[facility],[address] [place] [address] 37117 B/C RATIO 8 ratio Normal 0 - 30 [facility] Comment on above: Performed By: #### 2 54155 ####[facility],[address] [place] [address] 89644 Bilirubin [Mass/Vol] 0.3 mg/dL Normal 0.2 - 1.0 [facility] Comment on above: Performed By: #### 2 56237 ####[facility],[address] [place] [address] 63281 Calcium [Mass/Vol] 9.1 mg/dL Normal 8.5 - 10.1 [facility] Comment on above: Performed By: #### 2 80869 ####[facility],[address] [place] [address] 76327 Chloride [Moles/Vol] 104 mmol/L Normal 98 - 107 [facility] Comment on above: Performed By: #### 2 23143 ####[address] [address] CMP with eGFR Normal [facility] Comment on above: Result Comment: COMP REHENSIVE METABOLIC PANEL Performed By: #### 2 74581 ####[facility],[address] [place], [place] [address] CO2 [Moles/Vol] 26.4 mmol/L Normal 21.0 - 32.0 [facility] Comment on above: Performed By: #### 2 62791 ####[place] [address] Creatinine [Mass/Vol] 1.06 mg/dL High 0.55 - 1.02 [facility] Comment on above: Performed By: #### 2 47834 ####[facility],[address] [place] [address] eGFR 59 ML/MINUTE Low 60 - 999 [facility] Comment on above: Performed By: #### 2 97387 ####[place] [id number] GFR/1.73 sq M.predicted among non-blacks MDRD (S/P/Bld) [Vol rate/Area] mL/min/{1.73_m2} Normal 60 - 999 [facility] Comment on above: Result Comment: ACCO RDING TO THE NATIONAL KIDNEY DISEASE EDUCATION PROGRAM(NKDE), A NORMAL eGFRIS A VALUE GREATER THAN OR EQUAL TO 60 ML/MIN/1.73 SQ METERS.CHRONIC KIDNEY DISEASE: <60mL/MIN/1.73 SQ METERSKIDNEY FAILURE: <15mL/MIN/1.73 SQ METERSTHIS TEST SHOULD ONLY BE USED FOR PATIENTS 18 YEARS OF AGE AND OLDER. Performed By: #### 2 07496 ####[place] [id number] Globulin (S) [Mass/Vol] 3.7 g/dL Normal 1.5 - 3.8 [facility] Comment on above: Performed By: #### 2 91295 ####[facility],[address] [place] [address] 64447 Glucose [Mass/Vol] 90 mg/dL Normal 74 - 106 [facility] Comment on above: Performed By: #### 2 78174 ####[facility],[address] [place], [place] [address] Potassium [Moles/Vol] 3.5 mmol/L Normal 3.5 - 5.1 [facility] Comment on above: Performed By: #### 2 11152 ####[facility],[address] [place] [address] 95825 Protein [Mass/Vol] 7.0 g/dL Normal 6.4 - 8.2 [facility] Comment on above: Performed By: #### 2 26420 ####[facility],[address] [place] [address] 96516 Sodium [Moles/Vol] 140 mmol/L Normal 136 - 145 [facility] Comment on above: Performed By: #### 2 57519 ####[facility],[address] [place], [place] [address] Urea nitrogen [Mass/Vol] 8 mg/dL Normal 7 - 18 [facility] Comment on above: Performed By: #### 2 06014 ####[facility],[address] [place], [place] [address] CT ABDOMEN/PELVIS Won 2023 CT ABDOMEN/PELVIS W Normal [facility] CULTURE BLOOD [VANESSA]on Microscopic examination of blood, culture CULTURE BLOOD [VANESSA] _BLOOD CULTURE_ GO TO [employer] REPORTS AND ATTACHMENTS FOR SCANNED REPORT 05/24/[email or web address].DNP.COMPLE TE Normal [facility] Comment on above: Performed By: #### 2 30879 ####[facility],[address] [place] [address] Microscopic examination of blood, culture CULTURE BLOOD [VANESSA] _BLOOD CULTURE_ GO TO [employer]PSI REPORTS AND ATTACHMENTS FOR SCANNED REPORT 05/24/24.1108.DNP.COMPLE TE Normal [facility] Comment on above: Performed By: #### 2 84913 ####[place] [address] LACTATEon 05-17-2024 Lactate [Moles/Vol] 1.3 mmol/L Normal 0.4 - 2.0 [facility] Comment on above: Performed By: #### 2 53787 ####[place] [address] LIPASEon 05-17-2024 Lipase [Catalytic activity/Vol] 53.0 U/L Normal 15.0 - 78.0 [facility] Comment on above: Result Comment: *PLE ASE NOTE THAT RANGES FOR LIPASE HAVE CHANGED OF 10/31/23 DUE TO AN ASSAYUPDATE BY THE ASSOCIATE DIRECTOR FINANCIAL AID.THE NEW ASSAY RANGE IS 6-250 U/L, WITH A REFERENCERANGE OF 16-77 U/L. Performed By: #### 2 64597 ####[place] [address] URINALYSISon 05-17-2024 Amorphous NONE Normal [facility] Comment on above: Performed By: #### 2 61082 ####[place] [address] Bacteria 2+ Normal [facility] Comment on above: Performed By: #### 2 64472 ####[place] [address] Bilirubin Ql (U) Negative Normal NORMAL: NEGATIVE [facility] Comment on above: Performed By: #### 2 17913 ####[place] [address] Casts NONE Normal [facility] Comment on above: Performed By: #### 2 40971 ####[facility],[address] [place] [address] 71897 Clarity (U) clear Normal NORMAL: CLEAR [facility] Comment on above: Performed By: #### 2 53275 ####[facility],[address] [place] [address] 67091 Color (U) p.yel Normal NORMAL: YELLOW [facility] Comment on above: Performed By: #### 2 18816 ####[facility],[address] [place] [address] 65751 Crystals LM Nom (Urine sed) NONE Normal [facility] Comment on above: Performed By: #### 2 47469 ####[facility],[address] [place], [place] [address] Epi Cells OCC Normal [facility] Comment on above: Performed By: #### 2 76604 ####[facility],[address] [place] [address] 30114 Glucose Ql (U) NORM Normal NORMAL: NORMAL [facility] Comment on above: Performed By: #### 2 51377 ####[facility],[address] [place] [address] 36684 Hemoglobin Ql (U) 150 Abnormal NORMAL: NEGATIVE [facility] Comment on above: Performed By: #### 2 02562 ####[facility],[address] [place] [address] 71278 Ketone Negative Normal NORMAL: NEGATIVE [facility] Comment on above: Performed By: #### 2 28330 ####[facility],[address] [place] [address] 69366 Leukocytes 500 Abnormal NORMAL: NEGATIVE [facility] Comment on above: Performed By: #### 2 02216 ####[facility],[address] [place] [address] 59383 Mucous NONE Normal [facility] Comment on above: Performed By: #### 2 45888 ####[facility],[address] [place] [address] Nitrite Ql (U) Negative Normal NORMAL: NEGATIVE [facility] Comment on above: Performed By: #### 2 12233 ####[facility],[address] [place] [address] pH (U) 7 [pH] Normal NORMAL: 5.0-8.0 [facility] Comment on above: Performed By: #### 2 61284 ####[place] [address] Protein Ql (U) 30 Abnormal NORMAL: NEGATIVE [facility] Comment on above: Performed By: #### 2 25445 ####[place] [address] Rbc 0-5 Normal 0-3/hpf [facility] Comment on above: Performed By: #### 2 77714 ####[place] [address] Sp [place] 1.005 Low NORMAL: 1.010-1.030 [facility] Comment on above: Performed By: #### 2 70624 ####[place] [address] Specimen Type Clean catch Normal [facility] Comment on above: Performed By: #### 2 42839 ####[place] [address] Urinalysis dipstick W Reflex Microscopic panel (U) SEE BELOW Normal [facility] Comment on above: Result Comment: MICR OSCOPIC Performed By: #### 2 87550 ####[place] [address] Urobilinog NORM Normal NORMAL: NORMAL [facility] Comment on above: Performed By: #### 2 98212 ####[place] [address] Wbc 6-10 Normal 0-5/hpf [facility] Comment on above: Performed By: #### 2 33699 ####[facility],[address] [place] [address] 88830 Yeast NONE Normal [facility] Comment on above: Performed By: #### 2 49327 ####[facility],[address] [place] [address] 57573 C-REACTIVE PROTEINon 024 CRP 5.62 mg/dl High 0.00 - 0.90 [facility] Comment on above: Performed By: #### 2 14095 ####[facility],[address] [place] [address] 31434 CBC + DIFFon 04-25-2024 Baso # 0.02 x10EE3/UL Normal 0.00 - 0.10 [facility] Comment on above: Performed By: #### 2 02245 ####[facility],[address] [place] [address] 47636 Basophils/100 WBC (Bld) 0.1 % Normal 0.0 - 2.0 [facility] Comment on above: Performed By: #### 2 81068 ####[facility],[address] [place] [address] 36629 CBC + DIFF Normal [facility] Comment on above: Result Comment: CBC- COMPLETE BLOOD COUNT Performed By: #### 2 23712 ####[facility],[address] [place] [address] 50286 EO # 0.15 x10EE3/UL Normal 0.00 - 0.50 [facility] Comment on above: Performed By: #### 2 71093 ####[facility],[address] [place] [address] 61062 Eosinophils/100 WBC (Bld) 0.9 % Normal 0.0 - 7.0 [facility] Comment on above: Performed By: #### 2 85234 ####[facility],[address] [place] [address] 76395 Erythrocyte distribution width (RBC) [Ratio] 13.4 % Normal 12.0 - 15.6 [facility] Comment on above: Performed By: #### 2 61386 ####[facility],[address] [place] [address] Hematocrit (Bld) [Volume fraction] 35.4 % Normal 34.0 - 46.0 [facility] Comment on above: Performed By: #### 2 72723 ####[facility],[address] [place] [address] Hemoglobin (Bld) [Mass/Vol] 12.2 g/dL Normal 12.0 - 16.0 [facility] Comment on above: Performed By: #### 2 34751 ####[facility],[address] [place] [address] Lymph # 1.91 x10EE3/UL Normal 0.80 - 2.80 [facility] Comment on above: Performed By: #### 2 98056 ####[facility],[address] [place] [address] Lymphocytes/100 WBC (Bld) 11.3 % Low 20.0 - 45.0 [facility] Comment on above: Performed By: #### 2 48220 ####[facility],[address] [place], [place] [address] MANUAL DIFF N/A Normal [facility] Comment on above: Performed By: #### 2 43766 ####[facility],[address] [place], [place] [address] MCH (RBC) [Entitic mass] 33 pg Normal 27 - 33 [facility] Comment on above: Performed By: #### 2 92758 ####[place] [id number] MCHC 35 X10 3 Normal 32 - 36 [facility] Comment on above: Performed By: #### 2 40340 ####[place] [phone] MCV (RBC) [Entitic vol] 96 fL Normal 80 - 99 [facility] Comment on above: Performed By: #### 2 66751 ####[facility],[address] [place] [address] 30473 [place] # 1.33 x10EE3/UL High 0.20 - 1.00 [facility] Comment on above: Performed By: #### 2 96813 ####[facility],[address] [place] [address] 54906 MONOS % 7.9 % Normal 0.0 - 10.0 [facility] Comment on above: Performed By: #### 2 28601 ####[facility],[address] [place] [address] Morphology Efra (Bld) [Interp] N/A Normal [facility] Comment on above: Performed By: #### 2 67135 ####[facility],[address] [place] [address] Neut # 13.53 x10EE3/UL High 1.50 - 7.10 [facility] Comment on above: Performed By: #### 2 35317 ####[facility],[address] [place], [place] [address] Neutrophils/100 WBC (Bld) 79.9 % High 46.0 - 76.0 [facility] Comment on above: Performed By: #### 2 08045 ####[facility],[address] [place], [place] [address] PLATELET 325 x10EE3/UL Normal 150 - 450 [facility] Comment on above: Performed By: #### 2 85698 ####[facility],[address] [place] [address] 88263 Platelet mean volume (Bld) [Entitic vol] 6.7 fL Normal 6.6 - 10.5 [facility] Comment on above: Result Comment: AUTO MATED DIFFERENTIAL Performed By: #### 2 38213 ####[facility],[address] [place] [address] 73868 RBC 3.70 x 10EE6/UL Low 4.10 - 5.30 [facility] Comment on above: Performed By: #### 2 39906 ####[facility],[address] [place] [address] 79629 WBC 17.0 x 10EE3/UL High 4.5 - 10.8 [facility] Comment on above: Performed By: #### 2 31647 ####[facility],[address] [place], [place] [address] CMP with eGFRon 04-25-2024 AGE 33 years Normal [facility] Comment on above: Performed By: #### 2 54302 ####[facility],[address] [place] [address] 86158 Albumin [Mass/Vol] 3.5 g/dL Normal 3.4 - 5.0 [facility] Comment on above: Performed By: #### 2 38235 ####[facility],[address] [place], [place] [address] Albumin/Globulin [Mass ratio] 1.1 {ratio} Normal 0.9 - 1.6 [facility] Comment on above: Performed By: #### 2 60564 ####[facility],[address] [place] [address] 36134 ALK PHOS 83 U/L Normal 46 - 116 [facility] Comment on above: Performed By: #### 2 82982 ####[facility],[address] [place] [address] 41139 ALT [Catalytic activity/Vol] 15 U/L Low 16 - 63 [facility] Comment on above: Performed By: #### 2 66330 ####[facility],[address] [place] [address] 46163 Anion gap [Moles/Vol] 17 mmol/L Normal 10 - 20 [facility] Comment on above: Performed By: #### 2 38861 ####[facility],[address] [place], [place] [address] AST [Catalytic activity/Vol] 15 U/L Normal 13 - 39 [facility] Comment on above: Performed By: #### 2 61800 ####[facility],[address] [place] [address] 24987 B/C RATIO 7 ratio Normal 0 - 30 [facility] Comment on above: Performed By: #### 2 37229 ####[facility],[address] [place] [address] 75845 Bilirubin [Mass/Vol] 0.4 mg/dL Normal 0.2 - 1.0 [facility] Comment on above: Performed By: #### 2 40855 ####[facility],[address] [place], [place] [address] Calcium [Mass/Vol] 8.6 mg/dL Normal 8.5 - 10.1 [facility] Comment on above: Performed By: #### 2 96330 ####[facility],[address] [place], [place] [address] Chloride [Moles/Vol] 102 mmol/L Normal 98 - 107 [facility] Comment on above: Performed By: #### 2 30672 ####[facility],[address] [place] [address] 86951 CMP with eGFR Normal [facility] Comment on above: Result Comment: COMP REHENSIVE METABOLIC PANEL Performed By: #### 2 56519 ####[facility],[address] [place] [address] 88325 CO2 [Moles/Vol] 20.8 mmol/L Low 21.0 - 32.0 [facility] Comment on above: Performed By: #### 2 39738 ####[facility],[address] [place] [address] 87364 Creatinine [Mass/Vol] 0.89 mg/dL Normal 0.55 - 1.02 [facility] Comment on above: Performed By: #### 2 23922 ####[facility],[address] [place] [address] 06836 GFR/1.73 sq M.predicted among non-blacks MDRD (S/P/Bld) [Vol rate/Area] mL/min/{1.73_m2} Normal 60 - 999 [facility] Comment on above: Performed By: #### 2 61914 ####[facility],[address] [place] [address] 35240 Result Comment: ACCO RDING TO THE NATIONAL KIDNEY DISEASE EDUCATION PROGRAM(NKDE), A NORMAL eGFRIS A VALUE GREATER THAN OR EQUAL TO 60 ML/MIN/1.73 SQ METERS.CHRONIC KIDNEY DISEASE: <60mL/MIN/1.73 SQ METERSKIDNEY FAILURE: <15mL/MIN/1.73 SQ METERSTHIS TEST SHOULD ONLY BE USED FOR PATIENTS 18 YEARS OF AGE AND OLDER. Globulin (S) [Mass/Vol] 3.1 g/dL Normal 1.5 - 3.8 [facility] Comment on above: Performed By: #### 2 58404 ####[facility],[address] [place] [address] 87716 Glucose [Mass/Vol] 100 mg/dL Normal 74 - 106 [facility] Comment on above: Performed By: #### 2 55469 ####[facility],[address] [place] [address] 06904 Potassium [Moles/Vol] 2.9 mmol/L Critically low 3.5 - 5.1 [facility] Comment on above: Result Comment: { CA LLED TO ER AT 0402{ READ BACK BY CRYSTAL TO AEL AT 0402 Performed By: #### 2 24295 ####[facility],[address] [place] [address] 56417 Protein [Mass/Vol] 6.6 g/dL Normal 6.4 - 8.2 [facility] Comment on above: Performed By: #### 2 55145 ####[facility],[address] [place] [address] 29537 Sodium [Moles/Vol] 137 mmol/L Normal 136 - 145 [facility] Comment on above: Performed By: #### 2 74781 ####[facility],[address] [place] [address] Urea nitrogen [Mass/Vol] 6 mg/dL Low 7 - 18 [facility] Comment on above: Performed By: #### 2 13231 ####[facility],[address] [place] [address] CT ABDOMEN/PELVIS Won 2023 CT ABDOMEN/PELVIS W Normal [facility] LIPASEon 04-25-2024 Lipase [Catalytic activity/Vol] 12.0 U/L Low 15.0 - 78.0 [facility] Comment on above: Result Comment: *PLE ASE NOTE THAT RANGES FOR LIPASE HAVE CHANGED OF 10/31/23 DUE TO AN ASSAYUPDATE BY THE ASSOCIATE DIRECTOR FINANCIAL AID.THE NEW ASSAY RANGE IS 6-250 U/L, WITH A REFERENCERANGE OF 16-77 U/L. Performed By: #### 2 16044 ####[facility],[address] [place] [address] URINALYSISon 04-25-2024 Amorphous NONE Normal [facility] Comment on above: Performed By: #### 2 35442 ####[facility],[address] [place] [address] Bacteria 1+ Normal [facility] Comment on above: Performed By: #### 2 91181 ####[facility],[address] [place] [address] Bilirubin Ql (U) Negative Normal NORMAL: NEGATIVE [facility] Comment on above: Performed By: #### 2 33453 ####[place] [address] Casts NONE Normal [facility] Comment on above: Performed By: #### 2 52211 ####[facility],[address] [place] [address] Clarity (U) clear Normal NORMAL: CLEAR [facility] Comment on above: Performed By: #### 2 12104 ####[facility],[address] [place] [address] 80024 Color (U) p.yel Normal NORMAL: YELLOW [facility] Comment on above: Performed By: #### 2 08658 ####[facility],[address] [place] [address] 87769 Crystals LM Nom (Urine sed) NONE Normal [facility] Comment on above: Performed By: #### 2 80618 ####[facility],[address] [place] [address] 82129 Epi Cells FEW Normal [facility] Comment on above: Performed By: #### 2 61442 ####[facility],[address] [place] [address] 51109 Glucose Ql (U) NORM Normal NORMAL: NORMAL [facility] Comment on above: Performed By: #### 2 24581 ####[facility],[address] [place] [address] 15560 Hemoglobin Ql (U) 250 Abnormal NORMAL: NEGATIVE [facility] Comment on above: Performed By: #### 2 30727 ####[facility],[address] [place] [address] 41681 Ketone Negative Normal NORMAL: NEGATIVE [facility] Comment on above: Performed By: #### 2 44943 ####[facility],[address] [place] [address] 91279 Leukocytes 500 Abnormal NORMAL: NEGATIVE [facility] Comment on above: Performed By: #### 2 19896 ####[facility],[address] [place] [address] 07853 Mucous NONE Normal [facility] Comment on above: Performed By: #### 2 60679 ####[facility],[address] [place] [address] 31363 Nitrite Ql (U) Negative Normal NORMAL: NEGATIVE [facility] Comment on above: Performed By: #### 2 24657 ####[facility],[address] [place] [address] pH (U) 7 [pH] Normal NORMAL: 5.0-8.0 [facility] Comment on above: Performed By: #### 2 23696 ####[facility],[address] [place] [address] Protein Ql (U) 100 Abnormal NORMAL: NEGATIVE [facility] Comment on above: Performed By: #### 2 69624 ####[facility],[address] [place] [address] Rbc 5-10 Normal 0-3/hpf [facility] Comment on above: Performed By: #### 2 14121 ####[facility],[address] [place] [address] Sp [place] 1.005 Low NORMAL: 1.010-1.030 [facility] Comment on above: Performed By: #### 2 59803 ####[facility],[address] [place] [address] Specimen Type Clean catch Normal [facility] Comment on above: Performed By: #### 2 46157 ####[facility],[address] [place] [address] Urinalysis dipstick W Reflex Microscopic panel (U) SEE BELOW Normal [facility] Comment on above: Result Comment: MICR OSCOPIC Performed By: #### 2 55909 ####[facility],[address] [place] [address] Urobilinog NORM Normal NORMAL: NORMAL [facility] Comment on above: Performed By: #### 2 37485 ####[facility],[address] [place] [address] Wbc 6-10 Normal 0-5/hpf [facility] Comment on above: Performed By: #### 2 20572 ####[facility],[address] [place] [address] Yeast NONE Normal [facility] Comment on above: Performed By: #### 2 79277 ####[facility],[address] [place] [address] CBC + DIFFon 04-23-2024 Baso # 0.03 x10EE3/UL Normal 0.00 - 0.10 [facility] Comment on above: Performed By: #### 2 14315 ####[facility],[address] [place], [place] [address] Basophils/100 WBC (Bld) 0.3 % Normal 0.0 - 2.0 [facility] Comment on above: Performed By: #### 2 23250 ####[facility],[address] [place] [address] CBC + DIFF Normal [facility] Comment on above: Result Comment: CBC- COMPLETE BLOOD COUNT Performed By: #### 2 16193 ####[facility],[address] [place] [address] EO # 0.29 x10EE3/UL Normal 0.00 - 0.50 [facility] Comment on above: Performed By: #### 2 10182 ####[facility],[address] [place] [address] Eosinophils/100 WBC (Bld) 3.0 % Normal 0.0 - 7.0 [facility] Comment on above: Performed By: #### 2 28062 ####[facility],[address] [place] [address] Erythrocyte distribution width (RBC) [Ratio] 13.7 % Normal 12.0 - 15.6 [facility] Comment on above: Performed By: #### 2 95351 ####[facility],[address] [place] [address] Hematocrit (Bld) [Volume fraction] 39.2 % Normal 34.0 - 46.0 [facility] Comment on above: Performed By: #### 2 67377 ####[facility],[address] [place] [address] Hemoglobin (Bld) [Mass/Vol] 13.1 g/dL Normal 12.0 - 16.0 [facility] Comment on above: Performed By: #### 2 72654 ####[facility],[address] [place] [address] Lymph # 2.46 x10EE3/UL Normal 0.80 - 2.80 [facility] Comment on above: Performed By: #### 2 62757 ####[facility],[address] [place] [address] Lymphocytes/100 WBC (Bld) 25.3 % Normal 20.0 - 45.0 [facility] Comment on above: Performed By: #### 2 88999 ####[facility],[address] [place] [address] MANUAL DIFF N/A Normal [facility] Comment on above: Performed By: #### 2 16681 ####[facility],[address] [place] [address] MCH (RBC) [Entitic mass] 32 pg Normal 27 - 33 [facility] Comment on above: Performed By: #### 2 77867 ####[facility],[address] [place] [address] MCHC 34 X10 3 Normal 32 - 36 [facility] Comment on above: Performed By: #### 2 42808 ####[facility],[address] [place] [address] MCV (RBC) [Entitic vol] 96 fL Normal 80 - 99 [facility] Comment on above: Performed By: #### 2 47029 ####[facility],[address] [place] [address] [place] # 0.86 x10EE3/UL Normal 0.20 - 1.00 [facility] Comment on above: Performed By: #### 2 78229 ####[facility],[address],[place] [address] MONOS % 8.8 % Normal 0.0 - 10.0 [facility] Comment on above: Performed By: #### 2 17315 ####[facility],[address] [place] [address] 48418 Morphology Efra (Bld) [Interp] N/A Normal [facility] Comment on above: Performed By: #### 2 53758 ####[facility],[address] [place] [address] Neut # 6.07 x10EE3/UL Normal 1.50 - 7.10 [facility] Comment on above: Performed By: #### 2 10535 ####[place] [address] Neutrophils/100 WBC (Bld) 62.6 % Normal 46.0 - 76.0 [facility] Comment on above: Performed By: #### 2 25349 ####[place] [address] PLATELET 332 x10EE3/UL Normal 150 - 450 [facility] Comment on above: Performed By: #### 2 74632 ####[place] [address] Platelet mean volume (Bld) [Entitic vol] 6.8 fL Normal 6.6 - 10.5 [facility] Comment on above: Result Comment: AUTO MATED DIFFERENTIAL Performed By: #### 2 79242 ####[place] [address] RBC 4.07 x 10EE6/UL Low 4.10 - 5.30 [facility] Comment on above: Performed By: #### 2 69303 ####[place] [id number] WBC 9.7 x 10EE3/UL Normal 4.5 - 10.8 [facility] Comment on above: Performed By: #### 2 35312 ####[address],[place] [address] CMP with eGFRon 04-23-2024 AGE 33 years Normal [facility] Comment on above: Performed By: #### 2 72726 ####[facility],[address] [place] [address] 41298 Albumin [Mass/Vol] 3.7 g/dL Normal 3.4 - 5.0 [facility] Comment on above: Performed By: #### 2 28339 ####[facility],[address] [place], [place] [address] Albumin/Globulin [Mass ratio] 1.4 {ratio} Normal 0.9 - 1.6 [facility] Comment on above: Performed By: #### 2 37601 ####[facility],[address] [place] [address] 14391 ALK PHOS 88 U/L Normal 46 - 116 [facility] Comment on above: Performed By: #### 2 40960 ####[facility],[address] [place] [address] 96658 ALT [Catalytic activity/Vol] 18 U/L Normal 16 - 63 [facility] Comment on above: Performed By: #### 2 60268 ####[facility],[address] [place] [address] 31162 Anion gap [Moles/Vol] 13 mmol/L Normal 10 - 20 [facility] Comment on above: Performed By: #### 2 58294 ####[facility],[address] [place] [address] 81731 AST [Catalytic activity/Vol] 15 U/L Normal 13 - 39 [facility] Comment on above: Performed By: #### 2 44720 ####[facility],[address] [place] [address] 39604 B/C RATIO 12 ratio Normal 0 - 30 [facility] Comment on above: Performed By: #### 2 95670 ####[facility],[address] [place] [address] 26204 Bilirubin [Mass/Vol] 0.3 mg/dL Normal 0.2 - 1.0 [facility] Comment on above: Performed By: #### 2 49259 ####[facility],[address] [place] [address] 09328 Calcium [Mass/Vol] 9.1 mg/dL Normal 8.5 - 10.1 [facility] Comment on above: Performed By: #### 2 69927 ####[facility],[address] [place] [address] 29460 Chloride [Moles/Vol] 100 mmol/L Normal 98 - 107 [facility] Comment on above: Performed By: #### 2 68317 ####[facility],[address] [place] [address] 38693 CMP with eGFR Normal [facility] Comment on above: Result Comment: COMP REHENSIVE METABOLIC PANEL Performed By: #### 2 90981 ####[facility],[address] [place] [address] 30841 CO2 [Moles/Vol] 24.9 mmol/L Normal 21.0 - 32.0 [facility] Comment on above: Performed By: #### 2 72691 ####[facility],[address] [place] [address] 90835 Creatinine [Mass/Vol] 1.05 mg/dL High 0.55 - 1.02 [facility] Comment on above: Performed By: #### 2 63865 ####[facility],[address] [place] [address] 38639 eGFR 60 ML/MINUTE Normal 60 - 999 [facility] Comment on above: Performed By: #### 2 69996 ####[facility],[address] [place] [address] 97976 GFR/1.73 sq M.predicted among non-blacks MDRD (S/P/Bld) [Vol rate/Area] mL/min/{1.73_m2} Normal 60 - 999 [facility] Comment on above: Result Comment: ACCO RDING TO THE NATIONAL KIDNEY DISEASE EDUCATION PROGRAM(NKDE), A NORMAL eGFRIS A VALUE GREATER THAN OR EQUAL TO 60 ML/MIN/1.73 SQ METERS.CHRONIC KIDNEY DISEASE: <60mL/MIN/1.73 SQ METERSKIDNEY FAILURE: <15mL/MIN/1.73 SQ METERSTHIS TEST SHOULD ONLY BE USED FOR PATIENTS 18 YEARS OF AGE AND OLDER. Performed By: #### 2 84070 ####[facility],[address] [place] [address] 69369 Globulin (S) [Mass/Vol] 2.7 g/dL Normal 1.5 - 3.8 [facility] Comment on above: Performed By: #### 2 63931 ####[facility],[address] [place] [address] 99811 Glucose [Mass/Vol] 85 mg/dL Normal 74 - 106 [facility] Comment on above: Performed By: #### 2 41409 ####[facility],[address] [place] [address] 58657 Potassium [Moles/Vol] 3.3 mmol/L Low 3.5 - 5.1 [facility] Comment on above: Performed By: #### 2 90199 ####[facility],[address] [place] [address] 32483 Protein [Mass/Vol] 6.4 g/dL Normal 6.4 - 8.2 [facility] Comment on above: Performed By: #### 2 97186 ####[facility],[address] [place] [address] 34857 Sodium [Moles/Vol] 135 mmol/L Low 136 - 145 [facility] Comment on above: Performed By: #### 2 01776 ####[facility],[address] [place] [address] 55740 Urea nitrogen [Mass/Vol] 13 mg/dL Normal 7 - 18 [facility] Comment on above: Performed By: #### 2 19706 ####[facility],[address] [place] [address] CT ABDOMEN/PELVIS Won 2023 CT ABDOMEN/PELVIS W Normal [facility] LIPASEon 04-23-2024 Lipase [Catalytic activity/Vol] 109.0 U/L High 15.0 - 78.0 [facility] Comment on above: Result Comment: *PLE ASE NOTE THAT RANGES FOR LIPASE HAVE CHANGED OF 10/31/23 DUE TO AN ASSAYUPDATE BY THE ASSOCIATE DIRECTOR FINANCIAL AID.THE NEW ASSAY RANGE IS 6-250 U/L, WITH A REFERENCERANGE OF 16-77 U/L. Performed By: #### 2 81827 ####[facility],[address] [place] [address] URINALYSISon 04-23-2024 Amorphous 4+ Normal [facility] Comment on above: Performed By: #### 2 52489 ####[place] [address] Bacteria 2+ Normal [facility] Comment on above: Performed By: #### 2 87224 ####[place] [address] Bilirubin Ql (U) Negative Normal NORMAL: NEGATIVE [facility] Comment on above: Performed By: #### 2 59523 ####[place] [address] Casts NONE Normal [facility] Comment on above: Performed By: #### 2 39794 ####[facility],[address] [place] [address] Clarity (U) very cloudy Normal NORMAL: CLEAR [facility] Comment on above: Performed By: #### 2 36272 ####[place] [id number] Color (U) orange Normal NORMAL: YELLOW [facility] Comment on above: Performed By: #### 2 81728 ####[address],[place] [address] Crystals LM Nom (Urine sed) SEE BELOW Normal [facility] Comment on above: Performed By: #### 2 93616 ####[facility],[address] [place] [address] 44151 Epi Cells FEW Normal [facility] Comment on above: Performed By: #### 2 14361 ####[facility],[address] [place], [place] [address] Glucose Ql (U) NORM Normal NORMAL: NORMAL [facility] Comment on above: Performed By: #### 2 31324 ####[facility],[address] [place] [address] Hemoglobin Ql (U) 250 Abnormal NORMAL: NEGATIVE [facility] Comment on above: Performed By: #### 2 68299 ####[facility],[address] [place], [place] [address] Ketone Negative Normal NORMAL: NEGATIVE [facility] Comment on above: Performed By: #### 2 98294 ####[facility],[address] [place] [address] 12256 Leukocytes 500 Abnormal NORMAL: NEGATIVE [facility] Comment on above: Performed By: #### 2 79650 ####[facility],[address] [place] [address] 99818 Mucous NONE Normal [facility] Comment on above: Performed By: #### 2 27109 ####[facility],[address] [place] [address] 54964 Nitrite Ql (U) Negative Normal NORMAL: NEGATIVE [facility] Comment on above: Performed By: #### 2 84937 ####[facility],[address] [place] [address] 05906 pH (U) 8 [pH] Normal NORMAL: 5.0-8.0 [facility] Comment on above: Performed By: #### 2 01634 ####[facility],[address] [place], [place] [address] Protein Ql (U) 500 Abnormal NORMAL: NEGATIVE [facility] Comment on above: Performed By: #### 2 92402 ####[facility],[address] [place] [address] Rbc TNTC Normal 0-3/hpf [facility] Comment on above: Performed By: #### 2 52977 ####[facility],[address] [place] [address] Sp [place] 1.010 Normal NORMAL: 1.010-1.030 [facility] Comment on above: Performed By: #### 2 40973 ####[facility],[address] [place] [address] Specimen Type UNSPECIFIED Normal [facility] Comment on above: Performed By: #### 2 08899 ####[facility],[address] [place] [address] Triple Phos 1+ Normal NORMAL: NONE [facility] Comment on above: Performed By: #### 2 22950 ####[facility],[address] [place] [address] Urinalysis dipstick W Reflex Microscopic panel (U) SEE BELOW Normal [facility] Comment on above: Result Comment: MICR OSCOPIC Performed By: #### 2 11611 ####[facility],[address] [place] [address] Urobilinog NORM Normal NORMAL: NORMAL [facility] Comment on above: Performed By: #### 2 12058 ####[facility],[address] [place] [address] Wbc 26-50 Normal 0-5/hpf [facility] Comment on above: Performed By: #### 2 28449 ####[facility],[address] [place] [address] Yeast NONE Normal [facility] Comment on above: Performed By: #### 2 85406 ####[facility],[address] [place] [address] 53164 URINE CULTURE [CCL]on 2023 Bacteria identified Cx Nom (U) Normal [facility] Comment on above: Performed By: #### 2 90152 ####[facility],[address] [place] [address]1985 LABORATORYOrdered By: Marisa Dutton on 03-03-2024 Beta HCG ( test) Ql (U) Negative (03/03/24 1:07 PM) [facility] Work Phone: .Auto Diffon 01-21-2024 Basophil, Absolute 0.1 10 3/mcL Normal 0.0-0.3 [facility] ([place]) Comment on above: Performed By: #### C BC, ADIFF, PRO, BMP, ANEU, GFR #### [address] [address] Basophils/100 WBC (Bld) 0.8 % Normal 0.0-2.5 A [facility] ([place]) Comment on above: Performed By: #### C BC, ADIFF, PRO, BMP, ANEU, GFR #### [address] [address] Eosinophil, Absolute 0.2 10 3/mcL Normal 0.0-0.7 [facility] ([place]) Comment on above: Performed By: #### C BC, ADIFF, PRO, BMP, ANEU, GFR #### [address] [address] Eosinophils/100 WBC (Bld) 1.4 % Normal 0.0-6.0 [facility] ([place]) Comment on above: Performed By: #### C BC, ADIFF, PRO, BMP, ANEU, GFR #### [address] [address] Lymphocyte, Absolute 1.9 10 3/mcL Normal 0.9-4.3 [facility] ([place]) Comment on above: Performed By: #### C BC, ADIFF, PRO, BMP, ANEU, GFR #### [address] [address] Lymphocytes/100 WBC (Bld) 16.4 % Low 20.0-40.0 [facility] ([place]) Comment on above: Performed By: #### C BC, ADIFF, PRO, BMP, ANEU, GFR #### [address] [address] Monocyte, Absolute 1.1 10 3/mcL Normal 0.1-1.4 [facility] ([place]) Comment on above: Performed By: #### C BC, ADIFF, PRO, BMP, ANEU, GFR #### [address] [address] Monocytes/100 WBC (Bld) 9.9 % Normal 2.0-13.0 A [facility] ([place]) Comment on above: Performed By: #### C BC, ADIFF, PRO, BMP, ANEU, GFR #### [address] [address] Neutrophils/100 WBC (Bld) 71.5 % Normal 50.0-75.0 [facility] ([place]) Comment on above: Performed By: #### C BC, ADIFF, PRO, BMP, ANEU, GFR #### [address] [address] .GFRon 01-21-2024 GFR Non- >60 Normal [facility] ([place]) Comment on above: Result Comment: GFR Population mean for , Non- Americans Ages 20-29 = 116 mL/min/1.73 sq.m. Ages 30-39 = 107 mL/min/1.73 sq.m. Ages 40-49 = 99 mL/min/1.73 sq.m. Ages 50-59 = 93 mL/min/1.73 sq.m. Ages 60-69 = 85 mL/min/1.73 sq.m. Ages 70+ = 75 mL/min/1.73 sq.m. Chronic Kidney Disease: Less than 60 mL/min/1.73 square meters End Stage Renal Disease: Less than 15 mL/min/1.73 square meters Performed By: #### C BC, ADIFF, PRO, BMP, ANEU, GFR #### [address] [address] GFR >60 Normal [facility] ([place]) Comment on above: Result Comment: GFR Population mean for , Non- Americans Ages 20-29 = 116 mL/min/1.73 sq.m. Ages 30-39 = 107 mL/min/1.73 sq.m. Ages 40-49 = 99 mL/min/1.73 sq.m. Ages 50-59 = 93 mL/min/1.73 sq.m. Ages 60-69 = 85 mL/min/1.73 sq.m. Ages 70+ = 75 mL/min/1.73 sq.m. Chronic Kidney Disease: Less than 60 mL/min/1.73 square meters End Stage Renal Disease: Less than 15 mL/min/1.73 square meters Performed By: #### C BC, ADIFF, PRO, BMP, ANEU, GFR #### [address] [address] .NEUABSon 01-21-2024 Neutrophil, Absolute 8.1 10 3/mcL Normal 2.3-8.1 [facility] ([place]) Comment on above: Performed By: #### C BC, ADIFF, PRO, BMP, ANEU, GFR #### [address] [address] BMPon 01-21-2024 BUN/Creatinine Ratio 13.3 ratio Normal 10.0-22.0 [facility] ([place]) Comment on above: Order Comment: Speci men hemolyzed. called to ally in SDU for recollect at 01/21/2024 12:12:11 EDT Performed By: #### C BC, ADIFF, PRO, BMP, ANEU, GFR #### [address] [address] Calcium [Mass/Vol] 10.2 mg/dL Normal 8.7-10.4 [facility] ([place]) Comment on above: Order Comment: Speci men hemolyzed. called to ally in SDU for recollect at 01/21/2024 12:12:11 EDT Performed By: #### C BC, ADIFF, PRO, BMP, ANEU, GFR #### [address] [address] Chloride [Moles/Vol] 106 mmol/L Normal 98-110 [facility] ([place]) Comment on above: Order Comment: Speci men hemolyzed. called to ally in SDU for recollect at 01/21/2024 12:12:11 EDT Performed By: #### C BC, ADIFF, PRO, BMP, ANEU, GFR #### [address] [address] CO2 [Moles/Vol] 20 mmol/L Low 22-32 [facility] ([place]) Comment on above: Order Comment: Speci men hemolyzed. called to ally in SDU for recollect at 01/21/2024 12:12:11 EDT Performed By: #### C BC, ADIFF, PRO, BMP, ANEU, GFR #### [address] [address] Creatinine [Mass/Vol] 0.90 mg/dL Normal 0.50-1.20 [facility] ([place]) Comment on above: Order Comment: Speci men hemolyzed. called to ally in SDU for recollect at 01/21/2024 12:12:11 EDT Performed By: #### C BC, ADIFF, PRO, BMP, ANEU, GFR #### [address] [address] Electrolyte Balance 9.0 mEq/L Normal 4.0-15.0 [facility] ([place]) Comment on above: Order Comment: Speci men hemolyzed. called to ally in SDU for recollect at 01/21/2024 12:12:11 EDT Performed By: #### C BC, ADIFF, PRO, BMP, ANEU, GFR #### [address] [address] Glucose [Mass/Vol] 85 mg/dL Normal 70-110 [facility] ([place]) Comment on above: Order Comment: Speci men hemolyzed. called to ally in SDU for recollect at 01/21/2024 12:12:11 EDT Performed By: #### C BC, ADIFF, PRO, BMP, ANEU, GFR #### [address] [address] Potassium [Moles/Vol] 5.8 mmol/L High 3.5-5.0 [facility] ([place]) Comment on above: Order Comment: Speci men hemolyzed. called to ally in SDU for recollect at 01/21/2024 12:12:11 EDT Result Comment: Spec imen hemolyzed. Results may be falsely elevated. Performed By: #### C BC, ADIFF, PRO, BMP, ANEU, GFR #### [address] [address] Sodium [Moles/Vol] 135 mmol/L Low 136-145 [facility] ([place]) Comment on above: Order Comment: Speci men hemolyzed. called to ally in SDU for recollect at 01/21/2024 12:12:11 EDT Performed By: #### C BC, ADIFF, PRO, BMP, ANEU, GFR #### [place] [id number] Urea nitrogen [Mass/Vol] 12.0 mg/dL Normal 8.0-22.0 [facility] ([place]) Comment on above: Order Comment: Speci men hemolyzed. called to ally in SDU for recollect at 01/21/2024 12:12:11 EDT Result Comment: Spec imen hemolyzed. Results may be falsely elevated. Performed By: #### C BC, ADIFF, PRO, BMP, ANEU, GFR #### [address] [address] CBCon 01-21-2024 Erythrocyte distribution width (RBC) [Ratio] 17.2 % High 11.5-15.5 [facility] ([place]) Comment on above: Performed By: #### C BC, ADIFF, PRO, BMP, ANEU, GFR #### [place] [id number] Hematocrit (Bld) [Volume fraction] 44.3 % Normal 34.0-46.0 [facility] ([place]) Comment on above: Performed By: #### C BC, ADIFF, PRO, BMP, ANEU, GFR #### [place] [id number] Hgb 15.0 G/dL Normal 12.0-16.0 [facility] ([place]) Comment on above: Performed By: #### C BC, ADIFF, PRO, BMP, ANEU, GFR #### [place] [address] MCH (RBC) [Entitic mass] 31.3 pg Normal 27.0-33.0 [facility] ([place]) Comment on above: Performed By: #### C BC, ADIFF, PRO, BMP, ANEU, GFR #### [place] [address] MCHC 33.8 G/dL Normal 32.0-36.0 [facility] ([place]) Comment on above: Performed By: #### C BC, ADIFF, PRO, BMP, ANEU, GFR #### [place] [address] MCV (RBC) [Entitic vol] 92.6 fL Normal 80.0-99.0 A [facility] ([place]) Comment on above: Performed By: #### C BC, ADIFF, PRO, BMP, ANEU, GFR #### [place] [address] Platelet 429 10 3/mcL Normal 150-450 [facility] ([place]) Comment on above: Performed By: #### C BC, ADIFF, PRO, BMP, ANEU, GFR #### [place] [address] Platelet mean volume (Bld) [Entitic vol] 6.7 fL Normal 6.6-10.5 [facility] ([place]) Comment on above: Performed By: #### C BC, ADIFF, PRO, BMP, ANEU, GFR #### [place] [id number] RBC 4.78 10 6/mcL Normal 4.10-5.30 [facility] ([place]) Comment on above: Performed By: #### C BC, ADIFF, PRO, BMP, ANEU, GFR #### [place] [id number] WBC 11.3 10 3/mcL High 4.5-10.8 [facility] ([place]) Comment on above: Performed By: #### C BC, ADIFF, PRO, BMP, ANEU, GFR #### [place] [address] LABORATORYOrdered By: SYSTEM SYSTEM on 01-21-2024 Calcium [Mass/Vol] 10.2 mg/dL Normal 8.7 - 10. 4 mg/dL AH ADM SS Chloride [Moles/Vol] 106 mmol/L Normal 98 - 11 0 mEq/L AH ADM SS CO2 [Moles/Vol] 20 mmol/L Low 22 - 32 mEq/L AH ADM SS Creatinine [Mass/Vol] 0.90 mg/dL Normal 0.50 - 1.20 mg/dL AH ADM SS Electrolyte Balance 9.0 mEq/L Normal 4.0 - 15 .0 mEq/L AH ADM SS GFR/1.73 sq M.predicted among blacks MDRD (S/P/Bld) [Vol rate/Area] ml/min/1.73sqm Invalid Interpretation Code [employer] - [employer] Chemistry S Comment on above: Interpretive Data: GFR Population mean for , Non- Americans Ages 20-29 = 116 mL/min/1.73 sq.m. Ages 30-39 = 107 mL/min/1.73 sq.m. Ages 40-49 = 99 mL/min/1.73 sq.m. Ages 50-59 = 93 mL/min/1.73 sq.m. Ages 60-69 = 85 mL/min/1.73 sq.m. Ages 70+ = 75 mL/min/1.73 sq.m. Chronic Kidney Disease: Less than 60 mL/min/1.73 square meters End Stage Renal Disease: Less than 15 mL/min/1.73 square meters GFR/1.73 sq M.predicted among non-blacks MDRD (S/P/Bld) [Vol rate/Area] ml/min/1.73sqm Invalid Interpretation Code [employer] - [employer] Chemistry S Comment on above: Interpretive Data: GFR Population mean for , Non- Americans Ages 20-29 = 116 mL/min/1.73 sq.m. Ages 30-39 = 107 mL/min/1.73 sq.m. Ages 40-49 = 99 mL/min/1.73 sq.m. Ages 50-59 = 93 mL/min/1.73 sq.m. Ages 60-69 = 85 mL/min/1.73 sq.m. Ages 70+ = 75 mL/min/1.73 sq.m. Chronic Kidney Disease: Less than 60 mL/min/1.73 square meters End Stage Renal Disease: Less than 15 mL/min/1.73 square meters Glucose [Mass/Vol] 85 mg/dL Normal 70 - 110 mg/dL ADM SS Potassium [Moles/Vol] 5.8 mmol/L High 3.5 - 5.0 mEq/L ADM SS Comment on above: Result Comment: Spec imen hemolyzed. Results may be falsely elevated. Sodium [Moles/Vol] 135 mmol/L Low 136 - 145 mEq/L ADM SS Urea nitrogen [Mass/Vol] 12.0 mg/dL Normal 8.0 - 22.0 mg/dL ADM SS Comment on above: Result Comment: Spec imen hemolyzed. Results may be falsely elevated. Urea nitrogen/Creatinine [Mass ratio] 13.3 ratio Normal 10.0 - 22.0 ratio ADM SS Basophils (Bld) [#/Vol] 0.1 103/mcL Normal 0.0 - 0.3 10^3/mcL Workflow SS Basophils/100 WBC (Bld) 0.8 % Normal 0.0 - 2.5 % Workflow SS Eosinophils (Bld) [#/Vol] 0.2 103/mcL Normal 0.0 - 0.7 10^3/mcL Workflow SS Eosinophils/100 WBC (Bld) 1.4 % Normal 0.0 - 6.0 % Workflow SS Erythrocyte distribution width (RBC) [Ratio] 17.2 % High 11.5 - 15.5 % Workflow SS Hematocrit (Bld) [Volume fraction] 44.3 % Normal 34.0 - 46.0 % Workflow SS Hemoglobin (Bld) [Mass/Vol] 15.0 G/dL Normal 12.0 - 16.0 G/dL Workflow SS Lymphocytes (Bld) [#/Vol] 1.9 103/mcL Normal 0.9 - 4.3 10^3/mcL Workflow SS Lymphocytes/100 WBC (Bld) 16.4 % Low 20.0 - 40.0 % Workflow SS MCH (RBC) [Entitic mass] 31.3 pg Normal 27.0 - 33.0 pg AH Workflow SS MCHC 33.8 G/dL Normal 32.0 - 36.0 G/dL Workflow SS MCV (RBC) [Entitic vol] 92.6 fL Normal 80.0 - 99.0 fL AH Workflow SS Monocytes (Bld) [#/Vol] 1.1 103/mcL Normal 0.1 - 1.4 10^3/mcL AH Workflow SS Monocytes/100 WBC (Bld) 9.9 % Normal 2.0 - 13.0 % AH Workflow SS Neutrophils (Bld) [#/Vol] 8.1 103/mcL Normal 2.3 - 8.1 10^3/mcL AH Workflow SS Neutrophils/100 WBC (Bld) 71.5 % Normal 50.0 - 75.0 % AH Workflow SS Platelet mean volume (Bld) [Entitic vol] 6.7 fL Normal 6.6 - 10.5 fL AH Workflow SS Platelets (Bld) [#/Vol] 429 103/mcL Normal 150 - 450 10^3/mcL Workflow SS RBC (Bld) [#/Vol] 4.78 106/mcL Normal 4.10 - 5.3 0 10^6/mcL Workflow SS WBC (Bld) [#/Vol] 11.3 103/mcL High 4.5 - 10.8 10^3/mcL Workflow SS LABORATORYOrdered By: Josue Rodrigez on 01-21-2024 Beta HCG ( test) Ql (U) Negative (01/21/24 11:50 AM) [facility] Work Phone: LABORATORYOrdered By: Delmar Long on 01-21-2024 PT Coag (PPP) [Time] 12.6 s Normal 9.0 - 1 4.2 seconds [facility] Comment on above: Interpretive Data: E ffective 05/17/08, Protime results may be affected by some antibiotics (i.e. Ciprofloxacin, Azithromycin, Bactrim) which may potentiate the action of oral anticoagulants, with further increases in Protime/INR. PT International Ratio 1.1 ratio Invalid Interpretation Code [facility] Comment on above: Interpretive Data: Haja ambrosio [employer] (CHEST, 1991, 102:312S-25S) recommended therapeutic range for oral anticoagulant therapy is: LOW RISK: Prophylaxis of venous thrombosis INR: 2.0-3.0 Treatment of pulmonary embolism 2.0-3.0 Prevention of systemic embolism 2.0-3.0 HIGH RISK: Mechanical prosthetic valves 2.5-3.5 PROon 01-21-2024 INR Coag (PPP) [Relative time] 1.1 {INR} Normal [facility] ([place]) Comment on above: Result Comment: The [employer] (CHEST, 1992, 102:312S-25S) recommended therapeutic range for oral anticoagulant therapy is: LOW RISK: Prophylaxis of venous thrombosis INR: 2.0-3.0 Treatment of pulmonary embolism 2.0-3.0 Prevention of systemic embolism 2.0-3.0 HIGH RISK: Mechanical prosthetic valves 2.5-3.5 Performed By: #### C BC, ADIFF, PRO, BMP, ANEU, GFR #### [address] [address] PT Coag (PPP) [Time] 12.6 s Normal 9.0-14.2 [facility] ([place]) Comment on above: Result Comment: Effe ctive 05/17/08, Protime results may be affected by some antibiotics (i.e. Ciprofloxacin, Azithromycin, Bactrim) which may potentiate the action of oral anticoagulants, with further increases in Protime/INR. Performed By: #### C BC, ADIFF, PRO, BMP, ANEU, GFR #### [address] [address] [employer] Cytology Reporton 2023 [employer] Worker Cytology Report . Pathology Reports Accession: Collected Date/Time: Received Date/Time: Pathologist: [id number] 12/08/2023 16:49 EST 12/08/2023 18:00 EST TRICIA CAST MD [employer] Cytology Report SPECIMEN: Specimen Description: Liquid Prep w/ HPV Specimen: Vaginal Screening or Diagnostic: Screening RELEVANT HISTORY: LMP: POST RADIATION SPECIMEN ADEQUACY: SATISFACTORY FOR EVALUATION Endocervical/Transformat ional zone component absent/insufficient INTERPRETATION/RESULTS: NEGATIVE FOR INTRAEPITHELIAL LESION OR MALIGNANCY OTHER NON-NEOPLASTIC FINDINGS: Hyperkeratosis SUGGESTIONS/EDUCATIONAL NOTES: This case has been reviewed for 10% QA rescreen HIGH RISK HPV TESTING: Event Code Result HPV Interp See Interp HPVN HPV Interp Text: High Risk HPV Typing: NEGATIVE HPV types 16, 18, 31, 33, 35, 39, 45, 51, 52, 56, 58, 59, 66 and 68 DNA were undetectable or below the pre-set threshold. The sam High-Risk HPV DNA Test is not intended for use as a screening device for Pap normal women under age 30 and is not intended to substitute for regular Pap screening. The sam High-Risk HPV DNA Test is designed to augment existing methods for the detection of cervical disease and should be used in conjunction with clinical information derived from other diagnostic and screening tests, physical examinations and full medical history in accordance with appropriate patient management procedures. NOTE: A negative result does not preclude the presence of HPV infection because results depend on adequate specimen collection, absence of inhibitors and sufficient DNA to be detected. As of: 12/12/23 13:11 EST Pathology Reports Accession: Collected Date/Time: Received Date/Time: Pathologist: [id number] 12/08/2023 16:49 EST 12/08/2023 18:00 EST TRICIA CAST MD COMMENT: This Pap Test was successfully processed and evaluated with the assistance of the [employer] Test Imaging System. Electronically Signed by Pathology report verified by [facility] Screened by: DANY DW Electronically signed by TRICIA CAST Sign-Out Date: 12/12/2023 17:27 Performing Lab: [facility], [address] [place] [address] Pathology Dept Disclaimer The Pap test is a screening test for cervical cancer. As evidenced by published data, it is subject to both inherent false negative and false positive results. Your patient's results should be interpreted in context with pertinent clinical history including gynecological examination. Normal [facility] ([place]) HPVon 12-10-2023 HPV Interp Normal See Interp HPVN [facility] ([place]) Comment on above: Order Comment: Order placed by AP_HPV_ORDER rule from [id number] Result Comment: High Risk HPV Typing: NEGATIVE HPV types 16, 18, 31, 33, 35, 39, 45, 51, 52, 56, 58, 59, 66 and 68 DNA were undetectable or below the pre-set threshold. The sam High-Risk HPV DNA Test is not intended for use as a screening device for Pap normal women under age 30 and is not intended to substitute for regular Pap screening. The sam High-Risk HPV DNA Test is designed to augment existing methods for the detection of cervical disease and should be used in conjunction with clinical information derived from other diagnostic and screening tests, physical examinations and full medical history in accordance with appropriate patient management procedures. NOTE: A negative result does not preclude the presence of HPV infection because results depend on adequate specimen collection, absence of inhibitors and sufficient DNA to be detected. See Interp HPVN Performed By: #### C BC, ADIFF, PRO, BMP, ANEU, GFR #### [place] [address] HPV Source Cervix Normal [facility] ([place]) Comment on above: Order Comment: Order placed by AP_HPV_ORDER rule from [id number] Performed By: #### C BC, ADIFF, PRO, BMP, ANEU, GFR #### [place] [address] DRUGUon 12-08-2023 Amphetamine (u) Negative Normal Negative [facility] ([place]) Comment on above: Performed By: #### U OXYS, DRUGU #### [place] [address] Barbiturate (u) Negative Normal Negative [facility] ([place]) Comment on above: Performed By: #### U OXYS, DRUGU #### [place] [id number] Benzodiazepine (u) Negative Normal Negative [facility] ([place]) Comment on above: Performed By: #### U OXYS, DRUGU #### [place] [id number] Cannabinoid (u) Positive Abnormal Negative [facility] ([place]) Comment on above: Performed By: #### U OXYS, DRUGU #### [place] [id number] Cocaine Ql (U) Negative Normal Negative [facility] ([place]) Comment on above: Performed By: #### U OXYS, DRUGU #### [place] [id number] Fentanyl (u) Negative Normal Negative [facility] ([place]) Comment on above: Result Comment: Test ing has been performed FOR MEDICAL PURPOSES ONLY. Performed By: #### U OXYS, DRUGU #### [address] [address] Methadone Ql (U) Negative Normal Negative [facility] ([place]) Comment on above: Performed By: #### U OXYS, DRUGU #### [address] [address] Opiate (u) Negative Normal Negative [facility] ([place]) Comment on above: Performed By: #### U OXYS, DRUGU #### [address] [address] Oxycodone (u) Negative Normal Negative [facility] ([place]) Comment on above: Result Comment: Test ing has been performed FOR MEDICAL PURPOSES ONLY. Performed By: #### U OXYS, DRUGU #### [address] [address] PCP (u) Negative Normal Negative [facility] ([place]) Comment on above: Performed By: #### U OXYS, DRUGU #### [address] [address] Propoxyphene (u) Negative Normal Negative [facility] ([place] Comment on above: Performed By: #### U OXYS, DRUGU #### [address] [address] U pH Drug Scrn 8.0 Normal 5.0-8.0 [facility] ([place]) Comment on above: Performed By: #### U OXYS, DRUGU #### [address] [address] Urine Drugs screened: See Below Normal [facility] ([place]) Comment on above: Result Comment: This drug screen is a presumptive screening only. No confirmation will be performed unless requested. Drugs screened include: Threshold Amphetamines/Methamphetamines 1,000 ng/mL Barbiturates 200 ng/mL Benzodiazepine metabolites 200 ng/mL Cannabinoids (THC metabolites) 50 ng/mL Benzoylecognine (Cocaine metab) 300 ng/mL Opiates 300 ng/mL Phencyclidine (PCP) 25 ng/mL Methadone 300 ng/mL Propoxyphene 300 ng/mL Fentanyl 1.0 ng/mL Oxycodone 100 ng/mL Testing has been performed FOR MEDICAL PURPOSES ONLY. Performed By: #### U OXYYesenia DRUGU #### [place] [address] LABORATORYOrdered By: Alanna Russo on 12-08-2023 Amphetamines Screen Ql (U) Negative *NA* (12/08/23 3:54 PM) Invalid Interpretation Code Negative AH Chemistry S Barbiturates Screen Ql (U) Negative *NA* (12/08/23 3:54 PM) Invalid Interpretation Code Negative AH Chemistry S Benzodiazepines Ql (U) Negative *NA* (12/08/23 3:54 PM) Invalid Interpretation Code Negative AH Chemistry S Benzoylecgonine Screen Ql (U) Negative *NA* (12/08/23 3:54 PM) Invalid Interpretation Code Negative AH Chemistry S Cannabinoids Screen Ql (U) Positive *ABN* (12/08/23 3:54 PM) Invalid Interpretation Code Negative AH ADM SS fentaNYL Screen Ql (U) Negative 1 *NA* (12/08/23 3:54 PM) Invalid Interpretation Code Negative AH Chemistry S Comment on above: Interpretive Data: T esting has been performed FOR MEDICAL PURPOSES ONLY. Methadone Screen Ql (U) Negative *NA* (12/08/23 3:54 PM) Invalid Interpretation Code Negative AH Chemistry S Opiates Screen Ql (U) Negative *NA* (12/08/23 3:54 PM) Invalid Interpretation Code Negative AH Chemistry S oxyCODONE Ql (U) Negative 2 *NA* (12/08/23 3:54 PM) Invalid Interpretation Code Negative AH Chemistry S Comment on above: Interpretive Data: T esting has been performed FOR MEDICAL PURPOSES ONLY. pH (U) 8.0 [pH] Normal 5.0 - 8.0 AH Chemistry S Phencyclidine Ql (U) Negative *NA* (12/08/23 3:54 PM) Invalid Interpretation Code Negative AH Chemistry S Propoxyphene Screen Ql (U) Negative *NA* (12/08/23 3:54 PM) Invalid Interpretation Code Negative AH Chemistry S Urine Drugs screened: See Below 3 (12/08/23 3:54 PM) Normal AH Chemistry S Comment on above: Interpretive Data: T his drug screen is a presumptive screening only. No confirmation will be performed unless requested. Drugs screened include: Threshold Amphetamines/Methamphetamines 1,000 ng/mL Barbiturates 200 ng/mL Benzodiazepine metabolites 200 ng/mL Cannabinoids (THC metabolites) 50 ng/mL Benzoylecognine (Cocaine metab) 300 ng/mL Opiates 300 ng/mL Phencyclidine (PCP) 25 ng/mL Methadone 300 ng/mL Propoxyphene 300 ng/mL Fentanyl 1.0 ng/mL Oxycodone 100 ng/mL Testing has been performed FOR MEDICAL PURPOSES ONLY. IR NEPHROSTOMY EXCHANGEon IR NEPHROSTOMY EXCHANGE ORIGINAL EXAMINATION: IR NEPHROSTOMY TUBE [id number]/22/2023 3:02 pm IR NEPHROSTOMY TUBE CHANGE HISTORY: ORDERING SYSTEM PROVIDED HISTORY: Reason for Exam: CERVICAL CA COMPARISON: 07/24/2023 nephrostomy exchange TECHNIQUE: TECHNICAL DETAILS: CONSENT: Following a thorough explanation of the risk, benefits, and alternatives for the intended procedure, informed consent was obtained. TIME OUT: Prior to the procedure a time out was performed in the presence of the patient and all personnel involved in this case. The patient identity, procedure type, procedure side/site, and allergies were verified. SEDATION: Anesthesia was provided by the general anesthesia team. LOCAL ANESTHETIC: Lidocaine GUIDANCE: Fluoroscopy RADIATION TIME: 0.9 min RADIATION DOSE: 12 mGy CONTRAST: 10 cc Omnipaque INDWELLING DEVICE: 10F Locking Loop Drain PHYSICIAN: Viral Mason MD, PhD PROCEDURAL TECHNIQUE AND FINDINGS: The patient was transferred to the IR suite and was positioned supine on the procedural table. The patient was prepped and draped in the usual sterile fashion. Contrast was injected through the patient's existing catheter, and a nephrostogram was obtained. After infiltration of the catheter skin entry site with Lidocaine, the existing catheter was removed over a guidewire and a new nephrostomy catheter was advanced over the wire. Catheter position confirmed by contrast injection. The catheter was fixed in place and attached to a gravity drainage bag. A sterile, occlusive dressing was applied. . Complications: The patient left the department with no immediate complications. IMPRESSION: Success exchange of a right Nephrostomy drainage catheter. RECOMMENDATIONS: Routine exchange in 8-12 weeks. Interpreted by: Viral Mason MD Preliminary Report By: Viral Mason MD Electronically signed By Viral Mason MD Dictated Date: 10/22/2023 4:29:16 PM Prelim Date: 10/22/2023 4:31:01 PM Sign Date: 10/22/2023 4:31:01 PM Ordering Provider: FLIP MARTIN Normal [facility] ([place]) Cassandra 07-30-2023 Amphetamine (u) Negative Normal Negative [facility] ([place]) Comment on above: Performed By: #### U OXYS, DRUGU #### [address] [address] Barbiturate (u) Negative Normal Negative [facility] ([place]) Comment on above: Performed By: #### U OXYS, DRUGU #### [address] [address] Benzodiazepine (u) Negative Normal Negative [facility] ([place]) Comment on above: Performed By: #### U OXYS, DRUGU #### [address] [address] Cannabinoid (u) Positive Abnormal Negative [facility] ([place]) Comment on above: Performed By: #### U OXYS, DRUGU #### [address] [address] Cocaine Ql (U) Negative Normal Negative [facility] ([place] Comment on above: Performed By: #### U OXYS, DRUGU #### [address] [address] Fentanyl (u) Negative Normal Negative [facility] ([place] Comment on above: Result Comment: Test ing has been performed FOR MEDICAL PURPOSES ONLY. Performed By: #### U OXYS, DRUGU #### [address] [address] Methadone Ql (U) Negative Normal Negative [facility] ([place]) Comment on above: Performed By: #### U OXYS, DRUGU #### [address] [address] Opiate (u) Positive Abnormal Negative [facility] ([place]) Comment on above: Performed By: #### U OXYS, DRUGU #### [address] [address] Oxycodone (u) Positive Abnormal Negative [facility] ([place] Comment on above: Result Comment: Test ing has been performed FOR MEDICAL PURPOSES ONLY. Performed By: #### U OXYS, DRUGU #### [address] [address] PCP (u) Negative Normal Negative [facility] ([place]) Comment on above: Performed By: #### U OXYS, DRUGU #### [address] [address] Propoxyphene (u) Negative Normal Negative [facility] ([place]) Comment on above: Performed By: #### U OXYS, DRUGU #### [address] [address] U pH Drug Scrn 5.5 Normal 5.0-8.0 [facility] ([place] Comment on above: Performed By: #### U OXYS, DRUGU #### [address] [address] Urine Drugs screened: See Below Normal [facility] ([place]) Comment on above: Result Comment: This drug screen is a presumptive screening only. No confirmation will be performed unless requested. Drugs screened include: Threshold Amphetamines/Methamphetamines 1,000 ng/mL Barbiturates 200 ng/mL Benzodiazepine metabolites 200 ng/mL Cannabinoids (THC metabolites) 50 ng/mL Benzoylecognine (Cocaine metab) 300 ng/mL Opiates 300 ng/mL Phencyclidine (PCP) 25 ng/mL Methadone 300 ng/mL Propoxyphene 300 ng/mL Fentanyl 1.0 ng/mL Oxycodone 100 ng/mL Testing has been performed FOR MEDICAL PURPOSES ONLY. Performed By: #### U OXYS, DRUGU #### [address] [address] IR TUNNELED CATHETER INSERTI ON/PORTon 07-28-2023 IR TUNNELED CATHETER INSERTION/PORT ORIGINAL HISTORY: Cervical cancer with port unable to aspirate blood. Fibrin sheath confirmed on venogram 07/24/2023. Port placed 05/02/[address] Mason PROCEDURE: 1. Ultrasound guidance for venous access 2. Port venogram under fluoroscopy 3. Fibrin sheath stripping of right venous chest port HUMAN RESOURCES DIRECTOR: Dr. Aparicio CHAIR TRIMMER: None MATERIALS: 6 Fr sheath Snare J Micropuncture Exoseal FLUORO: 2.7 min AIR KERMA DOSE: 79 mGy CONTRAST: Documented in Surginet. ANESTHESIA: General anesthesia VENOUS PUNCTURE SITE: Right common femoral vein The procedure, risks, limitations, and alternatives were discussed. All questions answered. Written informed consent obtained. Maximal sterile barrier technique including cutaneous antisepsis utilized. Percutaneous site was sterilely prepped and draped. Time out performed. Access utilized ultrasound with permanent image stored. After administration of local anesthesia, a tiny skin incision was made and the vein was cannulated with a micropuncture set. Sheath was placed. Wire was advanced into the SVC. Snare sheath was advanced over the wire into the SVC. Multiple passes were performed of the snare sliding down the lower half of the port catheter. The port was accessed with the Lujan needle using sterile technique. Aspiration of blood was performed without difficulty. Port venogram demonstrates brisk jet stream of contrast from the catheter tip with no further opacification of previously seen fibrin sheath. All catheters and wires were removed. Exoseal closure device was deployed within the right groin with removal of the sheath. Manual compression was also utilized for hemostasis. Sterile dressing applied. COMPLICATIONS: None EBL: Minimal CONDITION: Stable, unchanged IMPRESSION: 1. Successful fibrin sheath stripping of right chest port via snare. DISCHARGE SUMMARY: REASON FOR HOSPITALIZATION: Fibrin sheath stripping and left PCNU to PCN conversion. OUTCOME: No acute complication. DISPOSITION: To prior residence. FOLLOW UP: With IR for tube change in 8 weeks Interpreted by: Madeline Aparicio MD Preliminary Report By: Madeline Aparicio MD Electronically signed By Madeline Aparicio MD Dictated Date: 07/28/2023 7:52:24 PM Prelim Date: 07/28/2023 8:00:17 PM Sign Date: 07/28/2023 8:00:17 PM Ordering Provider: BRITTNI LU [facility] ([place]) IR NEPHROSTOMY TUBE CHANGE L EFT W/GUIDEon 07-26-2023 IR NEPHROSTOMY TUBE CHANGE LEFT W/GUIDE ORIGINAL HISTORY: ORDERING SYSTEM PROVIDED HISTORY: Reason for Exam: CERVICAL CA. Patient has severe fibrosis of the left ureter and with a history of noncompliance for routine catheter exchanges. On 07/09/2023, previous nephroureteral catheter exchange was extremely difficult where the catheter fractured and required foreign body retrieval. Plan is to convert this nephroureteral catheter to a nephrostomy tube to allow easier exchange. Patient has yet to see tertiary care urologist for possible nephrectomy or other option. PROCEDURE: 1. Conversion of nephroureteral catheter to nephrostomy catheter under fluoroscopy LATERALITY: Left HUMAN RESOURCES DIRECTOR: Dr. Aparicio CHAIR TRIMMER: None The procedure, risks, and alternatives, were discussed and all questions were answered. Informed consent obtained. Maximal sterile barrier technique, hand hygiene, skin prep, and sterile ultrasound techniques (if used) utilized. Percutaneous site was sterilely prepped and draped. Time out performed. Sausage Stuffer image demonstrates nephroureteral catheter. Contrast injection through the catheter demonstrates no hydronephrosis. There is passage of contrast into the bladder. Local anesthesia administered. After cutting the hub, the old catheter was removed over the wire. A nephrostomy catheter was advanced and the distal loop formed in the renal pelvis, confirmed with contrast injection. The string was removed in its entirety. The catheter was flushed and attached to dependent bag drainage. Catheter secured to the skin with suture. Sterile dressing placed. COMPLICATIONS: None EBL: Minimal CONDITION: Stable, unchanged MATERIALS: 10 Fr drainage catheter Amplatz Moccasin bag ANESTHESIA: General anesthesia FLUORO: 1.5 min AIR KERMA DOSE: 14 mGy CONTRAST: Documented in Surginet. IMPRESSION: 1. Successful, uncomplicated conversion of nephroureteral catheter to a nephrostomy tube. Interpreted by: Madeline Aparicio MD Preliminary Report By: Madeline Aparicio MD Electronically signed By Madeline Aparicio MD Dictated Date: 07/26/2023 1:00:55 PM Prelim Date: 07/26/2023 1:06:17 PM Sign Date: 07/26/2023 1:06:17 PM Ordering Provider: FLIP MARTIN [facility] ([place]) .Auto Diffon 07-16-2023 Basophil, Absolute 0.1 10 3/mcL Normal 0.0-0.3 [facility], [facility] ([place]) Comment on above: Performed By: #### C BC, ADIFF, PRO, BMP, ANEU, GFR #### [facility] [address] [place] [address] Basophils/100 WBC (Bld) 1.4 % Normal 0.0-2.5 A [facility] ([place]) Comment on above: Performed By: #### C BC, ADIFF, PRO, BMP, ANEU, GFR #### [address] [address] Eosinophil, Absolute 0.6 10 3/mcL Normal 0.0-0.7 [facility] ([place]) Comment on above: Performed By: #### C BC, ADIFF, PRO, BMP, ANEU, GFR #### [address] [address] Eosinophils/100 WBC (Bld) 7.7 % High 0.0-6.0 [facility] ([place]) Comment on above: Performed By: #### C BC, ADIFF, PRO, BMP, ANEU, GFR #### [address] [address] Lymphocyte, Absolute 2.1 10 3/mcL Normal 0.9-4.3 [facility] ([place]) Comment on above: Performed By: #### C BC, ADIFF, PRO, BMP, ANEU, GFR #### [address] [address] Lymphocytes/100 WBC (Bld) 26.7 % Normal 20.0-40.0 [facility] ([place]) Comment on above: Performed By: #### C BC, ADIFF, PRO, BMP, ANEU, GFR #### [address] [address] Monocyte, Absolute 1.0 10 3/mcL Normal 0.1-1.4 [facility], [facility] ([place]) Comment on above: Performed By: #### C BC, ADIFF, PRO, BMP, ANEU, GFR #### [address] [address] Monocytes/100 WBC (Bld) 12.7 % Normal 2.0-13.0 [facility] ([place]) Comment on above: Performed By: #### C BC, ADIFF, PRO, BMP, ANEU, GFR #### [address] [address] Neutrophils/100 WBC (Bld) 51.5 % Normal 50.0-75.0 [facility] ([place]) Comment on above: Performed By: #### C BC, ADIFF, PRO, BMP, ANEU, GFR #### [address] [address] .GFRon 07-16-2023 GFR >60 Normal [facility] ([place]) Comment on above: Result Comment: GFR Population mean for , Non- Americans Ages 20-29 = 116 mL/min/1.73 sq.m. Ages 30-39 = 107 mL/min/1.73 sq.m. Ages 40-49 = 99 mL/min/1.73 sq.m. Ages 50-59 = 93 mL/min/1.73 sq.m. Ages 60-69 = 85 mL/min/1.73 sq.m. Ages 70+ = 75 mL/min/1.73 sq.m. Chronic Kidney Disease: Less than 60 mL/min/1.73 square meters End Stage Renal Disease: Less than 15 mL/min/1.73 square meters Performed By: #### C BC, ADIFF, PRO, BMP, ANEU, GFR #### [place] [address] GFR Non- >60 Normal [facility] ([place] Comment on above: Result Comment: GFR Population mean for , Non- Americans Ages 20-29 = 116 mL/min/1.73 sq.m. Ages 30-39 = 107 mL/min/1.73 sq.m. Ages 40-49 = 99 mL/min/1.73 sq.m. Ages 50-59 = 93 mL/min/1.73 sq.m. Ages 60-69 = 85 mL/min/1.73 sq.m. Ages 70+ = 75 mL/min/1.73 sq.m. Chronic Kidney Disease: Less than 60 mL/min/1.73 square meters End Stage Renal Disease: Less than 15 mL/min/1.73 square meters Performed By: #### C BC, ADIFF, PRO, BMP, ANEU, GFR #### [place] [address] .NEUABSon 07-16-2023 Neutrophil, Absolute 4.0 10 3/mcL Normal 2.3-8.1 [facility] ([place]) Comment on above: Performed By: #### C BC, ADIFF, PRO, BMP, ANEU, GFR #### [place] [address] CBCon 07-16-2023 Erythrocyte distribution width (RBC) [Ratio] 15.7 % High 11.5-15.5 [facility] ([place] Comment on above: Performed By: #### C BC, ADIFF, PRO, BMP, ANEU, GFR #### [place] [address] Hematocrit (Bld) [Volume fraction] 36.9 % Normal 34.0-46.0 [facility] ([place] Comment on above: Performed By: #### C BC, ADIFF, PRO, BMP, ANEU, GFR #### [place] [address] Hgb 12.3 G/dL Normal 12.0-16.0 [facility] ([place] Comment on above: Performed By: #### C BC, ADIFF, PRO, BMP, ANEU, GFR #### [place] [address] MCH (RBC) [Entitic mass] 30.1 pg Normal 27.0-33.0 [facility] ([place] Comment on above: Performed By: #### C BC, ADIFF, PRO, BMP, ANEU, GFR #### [place] [address] MCHC 33.3 G/dL Normal 32.0-36.0 [facility] ([place] Comment on above: Performed By: #### C BC, ADIFF, PRO, BMP, ANEU, GFR #### [place] [address] MCV (RBC) [Entitic vol] 90.3 fL Normal 80.0-99.0 A [facility] ([place]) Comment on above: Performed By: #### C BC, ADIFF, PRO, BMP, ANEU, GFR #### [place] [address] Platelet 396 10 3/mcL Normal 150-450 [facility] ([place] Comment on above: Performed By: #### C BC, ADIFF, PRO, BMP, ANEU, GFR #### [place] [address] Platelet mean volume (Bld) [Entitic vol] 7.1 fL Normal 6.6-10.5 [facility] ([place] Comment on above: Performed By: #### C BC, ADIFF, PRO, BMP, ANEU, GFR #### [place] [id number] RBC 4.08 10 6/mcL Low 4.10-5.30 [facility] ([place] Comment on above: Performed By: #### C BC, ADIFF, PRO, BMP, ANEU, GFR #### [place] [address] WBC 7.9 10 3/mcL Normal 4.5-10.8 [facility] ([place] Comment on above: Performed By: #### C BC, ADIFF, PRO, BMP, ANEU, GFR #### [place] [address] CMPon 07-16-2023 ALT/SGPT <7 Low 10-49 [facility] ([place] Comment on above: Performed By: #### C BC, ADIFF, PRO, BMP, ANEU, GFR #### [place] [address] Bili Total <0.20 Normal 0.20-1.20 [facility] ([place] Comment on above: Result Comment: Use of this assay is not recommended for patients undergoing treatment with eltrombopag due to the potential for falsely elevated results. Performed By: #### C BC, ADIFF, PRO, BMP, ANEU, GFR #### [place] [address] BUN/Creatinine Ratio Unable to Calculate Normal 10.0-2 2.0 [facility] ([place] Comment on above: Result Comment: Unab le to calculate this test result accurately. Results used to calculate this test are outside the reportable range. Performed By: #### C BC, ADIFF, PRO, BMP, ANEU, GFR #### [place] [address] Urea nitrogen [Mass/Vol] mg/dL Low 8.0-22.0 [facility] ([place] Comment on above: Performed By: #### C BC, ADIFF, PRO, BMP, ANEU, GFR #### [address] [address] Albumin Level 2.8 G/dL Low 3.2-4.8 [facility] ([place] Comment on above: Performed By: #### C BC, ADIFF, PRO, BMP, ANEU, GFR #### [address] [address] Albumin/Globulin [Mass ratio] 0.8 {ratio} Low 0.9-1.6 [facility] ([place] Comment on above: Performed By: #### C BC, ADIFF, PRO, BMP, ANEU, GFR #### [address] [address] ALP [Catalytic activity/Vol] 83 U/L Normal 38-126 [facility] ([place] Comment on above: Performed By: #### C BC, ADIFF, PRO, BMP, ANEU, GFR #### [address] [address] AST [Catalytic activity/Vol] 9 U/L Normal 8-34 [facility] ([place] Comment on above: Performed By: #### C BC, ADIFF, PRO, BMP, ANEU, GFR #### [address] [address] Calcium [Mass/Vol] 9.4 mg/dL Normal 8.7-10.4 [facility] ([place]) Comment on above: Performed By: #### C BC, ADIFF, PRO, BMP, ANEU, GFR #### [address] [address] Chloride [Moles/Vol] 103 mmol/L Normal 98-110 [facility] ([place]) Comment on above: Performed By: #### C BC, ADIFF, PRO, BMP, ANEU, GFR #### [address] [address] CO2 [Moles/Vol] 28 mmol/L Normal 22-32 [facility] ([place] Comment on above: Performed By: #### C BC, ADIFF, PRO, BMP, ANEU, GFR #### [place] [id number] Creatinine [Mass/Vol] 0.76 mg/dL Normal 0.50-1.20 [facility] ([place]) Comment on above: Performed By: #### C BC, ADIFF, PRO, BMP, ANEU, GFR #### [place] [id number] Electrolyte Balance 7.0 mEq/L Normal 4.0-15.0 [facility] ([place]) Comment on above: Performed By: #### C BC, ADIFF, PRO, BMP, ANEU, GFR #### [place] [id number] Globulin 3.3 G/dL Normal 1.5-3.8 [facility] ([place] Comment on above: Performed By: #### C BC, ADIFF, PRO, BMP, ANEU, GFR #### [place] [id number] Glucose [Mass/Vol] 98 mg/dL Normal 70-110 [facility] ([place] Comment on above: Performed By: #### C BC, ADIFF, PRO, BMP, ANEU, GFR #### [place] [id number] Potassium [Moles/Vol] 4.5 mmol/L Normal 3.5-5.0 [facility] ([place]) Comment on above: Performed By: #### C BC, ADIFF, PRO, BMP, ANEU, GFR #### [place] [id number] Sodium [Moles/Vol] 138 mmol/L Normal 136-145 [facility] ([place] Comment on above: Performed By: #### C BC, ADIFF, PRO, BMP, ANEU, GFR #### [place] [id number] Total Protein 6.1 G/dL Normal 5.7-8.2 [facility] ([place] Comment on above: Result Comment: No te - New Reference Range in effect 20 Performed By: #### C BC, ADIFF, PRO, BMP, ANEU, GFR #### [place] [address] LABORATORYOrdered By: SYSTEM SYSTEM on 07-16-2023 Albumin BCP dye [Mass/Vol] 2.8 G/dL Invalid Interpretation Code 3.2 - 4.8 G/dL AH ADM SS Albumin/Globulin [Mass ratio] 0.8 {ratio} Invalid Interpretation Code 0.9 - 1.6 ratio AH ADM SS ALP [Catalytic activity/Vol] 83 U/L Invalid Interpretation Code 38 - 126 U/L AH ADM SS ALT No additional P-5'-P [Catalytic activity/Vol] U/L 1 Invalid Interpretation Code 10 - 49 U/L AH ADM SS AST [Catalytic activity/Vol] 9 U/L Invalid Interpretation Code 8 - 34 U/L AH ADM SS Basophils (Bld) [#/Vol] 0.1 103/mcL Invalid Interpretation Code 0.0 - 0.3 10^3/mcL AH Workflow SS Basophils/100 WBC (Bld) 1.4 % Invalid Interpretation Code 0.0 - 2.5 % AH Workflow SS Bilirubin [Mass/Vol] mg/dL Invalid Interpretation Code 0.20 - 1.20 mg/dL AH ADM SS Comment on above: Interpretive Data: U se of this assay is not recommended for patients undergoing treatment with eltrombopag due to the potential for falsely elevated results. Calcium [Mass/Vol] 9.4 mg/dL Invalid Interpretation Code 8.7 - 10.4 mg/dL AH ADM SS Chloride [Moles/Vol] 103 mmol/L Invalid Interpretation Code 98 - 110 mEq/L AH ADM SS CO2 [Moles/Vol] 28 mmol/L Invalid Interpretation Code 22 - 32 mEq/L AH ADM SS Creatinine [Mass/Vol] 0.76 mg/dL Invalid Interpretation Code 0.50 - 1.20 mg/dL AH ADM SS Electrolyte Balance 7.0 mEq/L Invalid Interpretation Code 4.0 - 15.0 mEq/L AH ADM SS Eosinophils (Bld) [#/Vol] 0.6 103/mcL Invalid Interpretation Code 0.0 - 0.7 10^3/mcL AH Workflow SS Eosinophils/100 WBC (Bld) 7.7 % Invalid Interpretation Code 0.0 - 6.0 % AH Workflow SS Erythrocyte distribution width (RBC) [Ratio] 15.7 % Invalid Interpretation Code 11.5 - 15.5 % Workflow SS GFR/1.73 sq M.predicted among blacks MDRD (S/P/Bld) [Vol rate/Area] ml/min/1.73sqm Invalid Interpretation Code Chemistry S Comment on above: Interpretive Data: GFR Population mean for , Non- Americans Ages 20-29 = 116 mL/min/1.73 sq.m. Ages 30-39 = 107 mL/min/1.73 sq.m. Ages 40-49 = 99 mL/min/1.73 sq.m. Ages 50-59 = 93 mL/min/1.73 sq.m. Ages 60-69 = 85 mL/min/1.73 sq.m. Ages 70+ = 75 mL/min/1.73 sq.m. Chronic Kidney Disease: Less than 60 mL/min/1.73 square meters End Stage Renal Disease: Less than 15 mL/min/1.73 square meters GFR/1.73 sq M.predicted among non-blacks MDRD (S/P/Bld) [Vol rate/Area] ml/min/1.73sqm Invalid Interpretation Code Chemistry S Comment on above: Interpretive Data: GFR Population mean for , Non- Americans Ages 20-29 = 116 mL/min/1.73 sq.m. Ages 30-39 = 107 mL/min/1.73 sq.m. Ages 40-49 = 99 mL/min/1.73 sq.m. Ages 50-59 = 93 mL/min/1.73 sq.m. Ages 60-69 = 85 mL/min/1.73 sq.m. Ages 70+ = 75 mL/min/1.73 sq.m. Chronic Kidney Disease: Less than 60 mL/min/1.73 square meters End Stage Renal Disease: Less than 15 mL/min/1.73 square meters Globulin 3.3 G/dL Invalid Interpretation Code 1.5 - 3.8 G/dL ADM SS Glucose [Mass/Vol] 98 mg/dL Invalid Interpretation Code 70 - 110 mg/dL ADM SS Hematocrit (Bld) [Volume fraction] 36.9 % Invalid Interpretation Code 34.0 - 46.0 % Workflow SS Hemoglobin (Bld) [Mass/Vol] 12.3 G/dL Invalid Interpretation Code 12.0 - 16.0 G/dL AH Workflow SS Lymphocytes (Bld) [#/Vol] 2.1 103/mcL Invalid Interpretation Code 0.9 - 4.3 10^3/mcL AH Workflow SS Lymphocytes/100 WBC (Bld) 26.7 % Invalid Interpretation Code 20.0 - 40.0 % AH Workflow SS Magnesium [Mass/Vol] 2.0 mg/dL Invalid Interpretation Code 1.6 - 2.4 mg/dL AH ADM SS MCH (RBC) [Entitic mass] 30.1 pg Invalid Interpretation Code 27.0 - 33.0 pg AH Workflow SS MCHC 33.3 G/dL Invalid Interpretation Code 32.0 - 36.0 G/dL AH Workflow SS MCV (RBC) [Entitic vol] 90.3 fL Invalid Interpretation Code 80.0 - 99.0 fL AH Workflow SS Monocytes (Bld) [#/Vol] 1.0 103/mcL Invalid Interpretation Code 0.1 - 1.4 10^3/mcL AH Workflow SS Monocytes/100 WBC (Bld) 12.7 % Invalid Interpretation Code 2.0 - 13.0 % AH Workflow SS Neutrophils (Bld) [#/Vol] 4.0 103/mcL Invalid Interpretation Code 2.3 - 8.1 10^3/mcL AH Workflow SS Neutrophils/100 WBC (Bld) 51.5 % Invalid Interpretation Code 50.0 - 75.0 % AH Workflow SS Phosphate [Mass/Vol] 5.8 mg/dL Invalid Interpretation Code 2.4 - 5.1 mg/dL ADM SS Comment on above: Interpretive Data: * *Note - New Reference Range in effect 20 Platelet mean volume (Bld) [Entitic vol] 7.1 fL Invalid Interpretation Code 6.6 - 10.5 fL AH Workflow SS Platelets (Bld) [#/Vol] 396 103/mcL Invalid Interpretation Code 150 - 450 10^3/mcL AH Workflow SS Potassium [Moles/Vol] 4.5 mmol/L Invalid Interpretation Code 3.5 - 5.0 mEq/L AH ADM SS Protein [Mass/Vol] 6.1 G/dL Invalid Interpretation Code 5.7 - 8.2 G/dL AH ADM SS Comment on above: Interpretive Data: * *Note - New Reference Range in effect 20 RBC (Bld) [#/Vol] 4.08 106/mcL Invalid Interpretation Code 4.10 - 5.30 10^6/mcL Workflow SS Sodium [Moles/Vol] 138 mmol/L Invalid Interpretation Code 136 - 145 mEq/L AH ADM SS WBC (Bld) [#/Vol] 7.9 103/mcL Invalid Interpretation Code 4.5 - 10.8 10^3/mcL Workflow SS LABORATORYOrdered By: Madyson Magallanes on 07-16-2023 Urea nitrogen [Mass/Vol] mg/dL Invalid Interpretation Code 8.0 - 22.0 mg/dL Chemistry S Urea nitrogen/Creatinine [Mass ratio] Unable to Calculate Invalid Interpretation Code 10.0 - 22.0 Chemistry S Comment on above: Result Comment: Unab le to calculate this test result accurately. Results used to calculate this test are outside the reportable range. MGon 07-16-2023 Magnesium [Mass/Vol] 2.0 mg/dL Normal 1.6-2.4 [facility] ([place]) Comment on above: Performed By: #### C BC, ADIFF, PRO, BMP, ANEU, GFR #### [address] [address] PHOSon 07-16-2023 Phosphate [Mass/Vol] 5.8 mg/dL High 2.4-5.1 [facility] ([place]) Comment on above: Result Comment: No te - New Reference Range in effect 20 Performed By: #### C BC, ADIFF, PRO, BMP, ANEU, GFR #### [address] [address] .Auto Diffon 07-15-2023 Basophil, Absolute 0.1 10 3/mcL Normal 0.0-0.3 [facility] ([place] Comment on above: Performed By: #### C BC, ADIFF, PRO, BMP, ANEU, GFR #### [address] [address] Basophils/100 WBC (Bld) 1.2 % Normal 0.0-2.5 A [facility] ([place]) Comment on above: Performed By: #### C BC, ADIFF, PRO, BMP, ANEU, GFR #### [address] [address] Eosinophil, Absolute 0.6 10 3/mcL Normal 0.0-0.7 [facility] ([place]) Comment on above: Performed By: #### C BC, ADIFF, PRO, BMP, ANEU, GFR #### [address] [address] Eosinophils/100 WBC (Bld) 7.1 % High 0.0-6.0 [facility] ([place] Comment on above: Performed By: #### C BC, ADIFF, PRO, BMP, ANEU, GFR #### [address] [address] Lymphocyte, Absolute 2.0 10 3/mcL Normal 0.9-4.3 [facility] ([place] Comment on above: Performed By: #### C BC, ADIFF, PRO, BMP, ANEU, GFR #### [address] [address] Lymphocytes/100 WBC (Bld) 25.6 % Normal 20.0-40.0 [facility] ([place] Comment on above: Performed By: #### C BC, ADIFF, PRO, BMP, ANEU, GFR #### [address] [address] Monocyte, Absolute 1.1 10 3/mcL Normal 0.1-1.4 [facility] ([place] Comment on above: Performed By: #### C BC, ADIFF, PRO, BMP, ANEU, GFR #### [address] [address] Monocytes/100 WBC (Bld) 14.0 % High 2.0-13.0 [facility] ([place]) Comment on above: Performed By: #### C BC, ADIFF, PRO, BMP, ANEU, GFR #### [address] [address] Neutrophils/100 WBC (Bld) 52.1 % Normal 50.0-75.0 [facility] ([place] Comment on above: Performed By: #### C BC, ADIFF, PRO, BMP, ANEU, GFR #### [address] [address] .GFRon 07-15-2023 GFR >60 Normal [facility] ([place] Comment on above: Result Comment: GFR Population mean for , Non- Americans Ages 20-29 = 116 mL/min/1.73 sq.m. Ages 30-39 = 107 mL/min/1.73 sq.m. Ages 40-49 = 99 mL/min/1.73 sq.m. Ages 50-59 = 93 mL/min/1.73 sq.m. Ages 60-69 = 85 mL/min/1.73 sq.m. Ages 70+ = 75 mL/min/1.73 sq.m. Chronic Kidney Disease: Less than 60 mL/min/1.73 square meters End Stage Renal Disease: Less than 15 mL/min/1.73 square meters Performed By: #### C BC, ADIFF, PRO, BMP, ANEU, GFR #### [place] [address] GFR Non- >60 Normal [facility] ([place] Comment on above: Result Comment: GFR Population mean for , Non- Americans Ages 20-29 = 116 mL/min/1.73 sq.m. Ages 30-39 = 107 mL/min/1.73 sq.m. Ages 40-49 = 99 mL/min/1.73 sq.m. Ages 50-59 = 93 mL/min/1.73 sq.m. Ages 60-69 = 85 mL/min/1.73 sq.m. Ages 70+ = 75 mL/min/1.73 sq.m. Chronic Kidney Disease: Less than 60 mL/min/1.73 square meters End Stage Renal Disease: Less than 15 mL/min/1.73 square meters Performed By: #### C BC, ADIFF, PRO, BMP, ANEU, GFR #### [place] [address] .NEUABSon 07-15-2023 Neutrophil, Absolute 4.0 10 3/mcL Normal 2.3-8.1 [facility] ([place] Comment on above: Performed By: #### C BC, ADIFF, PRO, BMP, ANEU, GFR #### [address] [address] CBCon 07-15-2023 Erythrocyte distribution width (RBC) [Ratio] 15.2 % Normal 11.5-15.5 [facility] ([place] Comment on above: Performed By: #### C BC, ADIFF, PRO, BMP, ANEU, GFR #### [place] [address] Hematocrit (Bld) [Volume fraction] 35.2 % Normal 34.0-46.0 [facility] ([place] Comment on above: Performed By: #### C BC, ADIFF, PRO, BMP, ANEU, GFR #### [place] [address] Hgb 11.9 G/dL Low 12.0-16.0 [facility] ([place] Comment on above: Performed By: #### C BC, ADIFF, PRO, BMP, ANEU, GFR #### [place] [address] MCH (RBC) [Entitic mass] 30.3 pg Normal 27.0-33.0 [facility] ([place] Comment on above: Performed By: #### C BC, ADIFF, PRO, BMP, ANEU, GFR #### [place] [address] MCHC 33.7 G/dL Normal 32.0-36.0 [facility] ([place] Comment on above: Performed By: #### C BC, ADIFF, PRO, BMP, ANEU, GFR #### [place] [address] MCV (RBC) [Entitic vol] 89.9 fL Normal 80.0-99.0 A [facility] ([place]) Comment on above: Performed By: #### C BC, ADIFF, PRO, BMP, ANEU, GFR #### [place] [address] Platelet 358 10 3/mcL Normal 150-450 [facility] ([place] Comment on above: Performed By: #### C BC, ADIFF, PRO, BMP, ANEU, GFR #### [place] [address] Platelet mean volume (Bld) [Entitic vol] 6.9 fL Normal 6.6-10.5 [facility] ([place] Comment on above: Performed By: #### C BC, ADIFF, PRO, BMP, ANEU, GFR #### [address] [address] RBC 3.92 10 6/mcL Low 4.10-5.30 [facility] ([place] Comment on above: Performed By: #### C BC, ADIFF, PRO, BMP, ANEU, GFR #### [place] [address] WBC 7.7 10 3/mcL Normal 4.5-10.8 [facility] ([place] Comment on above: Performed By: #### C BC, ADIFF, PRO, BMP, ANEU, GFR #### [address] [address] CMPon 07-15-2023 Albumin Level 2.8 G/dL Low 3.2-4.8 [facility] ([place] Comment on above: Performed By: #### C BC, ADIFF, PRO, BMP, ANEU, GFR #### [place] [address] Albumin/Globulin [Mass ratio] 0.9 {ratio} Normal 0.9-1.6 [facility] ([place] Comment on above: Performed By: #### C BC, ADIFF, PRO, BMP, ANEU, GFR #### [place] [id number] ALP [Catalytic activity/Vol] 82 U/L Normal 38-126 [facility] ([place] Comment on above: Performed By: #### C BC, ADIFF, PRO, BMP, ANEU, GFR #### [place] [id number] ALT/SGPT <8 Low 10-49 [facility] ([place] Comment on above: Performed By: #### C BC, ADIFF, PRO, BMP, ANEU, GFR #### [place] [id number] AST [Catalytic activity/Vol] 9 U/L Normal 8-34 [facility] ([place] Comment on above: Performed By: #### C BC, ADIFF, PRO, BMP, ANEU, GFR #### [address] [address] Bili Total 0.20 mg/dL Normal 0.20-1.20 [facility] ([place] Comment on above: Result Comment: Use of this assay is not recommended for patients undergoing treatment with eltrombopag due to the potential for falsely elevated results. Performed By: #### C BC, ADIFF, PRO, BMP, ANEU, GFR #### [address] [id number] BUN/Creatinine Ratio 8.1 ratio Low 10.0-22.0 Formerly [facility], 1928–[facility] ([place]) Comment on above: Performed By: #### C BC, ADIFF, PRO, BMP, ANEU, GFR #### [address] [address] Calcium [Mass/Vol] 9.3 mg/dL Normal 8.7-10.4 [facility] ([place]) Comment on above: Performed By: #### C BC, ADIFF, PRO, BMP, ANEU, GFR #### [address] [address] Chloride [Moles/Vol] 104 mmol/L Normal 98-110 [facility], [facility]–[place] ([place]) Comment on above: Performed By: #### C BC, ADIFF, PRO, BMP, ANEU, GFR #### [address] [address] CO2 [Moles/Vol] 25 mmol/L Normal 22-32 [facility] ([place]) Comment on above: Performed By: #### C BC, ADIFF, PRO, BMP, ANEU, GFR #### [address] [address] Creatinine [Mass/Vol] 0.74 mg/dL Normal 0.50-1.20 [facility] ([place]) Comment on above: Performed By: #### C BC, ADIFF, PRO, BMP, ANEU, GFR #### [address] [address] Electrolyte Balance 7.0 mEq/L Normal 4.0-15.0 [facility] ([place]) Comment on above: Performed By: #### C BC, ADIFF, PRO, BMP, ANEU, GFR #### [address] [address] Globulin 3.1 G/dL Normal 1.5-3.8 [facility] ([place]) Comment on above: Performed By: #### C BC, ADIFF, PRO, BMP, ANEU, GFR #### [address] [address] Glucose [Mass/Vol] 96 mg/dL Normal 70-110 [facility] ([place]) Comment on above: Performed By: #### C BC, ADIFF, PRO, BMP, ANEU, GFR #### [place] [id number] Potassium [Moles/Vol] 4.4 mmol/L Normal 3.5-5.0 [facility] ([place]) Comment on above: Performed By: #### C BC, ADIFF, PRO, BMP, ANEU, GFR #### [place] [id number] Sodium [Moles/Vol] 136 mmol/L Normal 136-145 [facility] ([place]) Comment on above: Performed By: #### C BC, ADIFF, PRO, BMP, ANEU, GFR #### [address] [address] Total Protein 5.9 G/dL Normal 5.7-8.2 [facility] ([place]) Comment on above: Result Comment: No te - New Reference Range in effect 20 Performed By: #### C BC, ADIFF, PRO, BMP, ANEU, GFR #### [address] [address] Urea nitrogen [Mass/Vol] 6.0 mg/dL Low 8.0-22.0 [facility] ([place]) Comment on above: Performed By: #### C BC, ADIFF, PRO, BMP, ANEU, GFR #### [address] [address] LABORATORYOrdered By: SYSTEM SYSTEM on 07-15-2023 Albumin BCP dye [Mass/Vol] 2.8 G/dL Invalid Interpretation Code 3.2 - 4.8 G/dL ADM SS Albumin/Globulin [Mass ratio] 0.9 {ratio} Invalid Interpretation Code 0.9 - 1.6 ratio AH ADM SS ALP [Catalytic activity/Vol] 82 U/L Invalid Interpretation Code 38 - 126 U/L AH ADM SS ALT No additional P-5'-P [Catalytic activity/Vol] U/L 1 Invalid Interpretation Code 10 - 49 U/L AH ADM SS AST [Catalytic activity/Vol] 9 U/L Invalid Interpretation Code 8 - 34 U/L AH ADM SS Basophils (Bld) [#/Vol] 0.1 103/mcL Invalid Interpretation Code 0.0 - 0.3 10^3/mcL AH Workflow SS Basophils/100 WBC (Bld) 1.2 % Invalid Interpretation Code 0.0 - 2.5 % Workflow SS Bilirubin [Mass/Vol] 0.20 mg/dL Invalid Interpretation Code 0.20 - 1.20 mg/dL ADM SS Comment on above: Interpretive Data: U se of this assay is not recommended for patients undergoing treatment with eltrombopag due to the potential for falsely elevated results. Calcium [Mass/Vol] 9.3 mg/dL Invalid Interpretation Code 8.7 - 10.4 mg/dL ADM SS Chloride [Moles/Vol] 104 mmol/L Invalid Interpretation Code 98 - 110 mEq/L ADM SS CO2 [Moles/Vol] 25 mmol/L Invalid Interpretation Code 22 - 32 mEq/L ADM SS Creatinine [Mass/Vol] 0.74 mg/dL Invalid Interpretation Code 0.50 - 1.20 mg/dL AH ADM SS Electrolyte Balance 7.0 mEq/L Invalid Interpretation Code 4.0 - 15.0 mEq/L ADM SS Eosinophils (Bld) [#/Vol] 0.6 103/mcL Invalid Interpretation Code 0.0 - 0.7 10^3/mcL AH Workflow SS Eosinophils/100 WBC (Bld) 7.1 % Invalid Interpretation Code 0.0 - 6.0 % Workflow SS Erythrocyte distribution width (RBC) [Ratio] 15.2 % Invalid Interpretation Code 11.5 - 15.5 % Workflow SS GFR/1.73 sq M.predicted among blacks MDRD (S/P/Bld) [Vol rate/Area] ml/min/1.73sqm Invalid Interpretation Code Poll[employer] - [employer] Chemistry S Comment on above: Interpretive Data: GFR Population mean for , Non- Americans Ages 20-29 = 116 mL/min/1.73 sq.m. Ages 30-39 = 107 mL/min/1.73 sq.m. Ages 40-49 = 99 mL/min/1.73 sq.m. Ages 50-59 = 93 mL/min/1.73 sq.m. Ages 60-69 = 85 mL/min/1.73 sq.m. Ages 70+ = 75 mL/min/1.73 sq.m. Chronic Kidney Disease: Less than 60 mL/min/1.73 square meters End Stage Renal Disease: Less than 15 mL/min/1.73 square meters GFR/1.73 sq M.predicted among non-blacks MDRD (S/P/Bld) [Vol rate/Area] ml/min/1.73sqm Invalid Interpretation Code [employer] Chemistry S Comment on above: Interpretive Data: GFR Population mean for , Non- Americans Ages 20-29 = 116 mL/min/1.73 sq.m. Ages 30-39 = 107 mL/min/1.73 sq.m. Ages 40-49 = 99 mL/min/1.73 sq.m. Ages 50-59 = 93 mL/min/1.73 sq.m. Ages 60-69 = 85 mL/min/1.73 sq.m. Ages 70+ = 75 mL/min/1.73 sq.m. Chronic Kidney Disease: Less than 60 mL/min/1.73 square meters End Stage Renal Disease: Less than 15 mL/min/1.73 square meters Globulin 3.1 G/dL Invalid Interpretation Code 1.5 - 3.8 G/dL ADM SS Glucose [Mass/Vol] 96 mg/dL Invalid Interpretation Code 70 - 110 mg/dL ADM SS Hematocrit (Bld) [Volume fraction] 35.2 % Invalid Interpretation Code 34.0 - 46.0 % Workflow SS Hemoglobin (Bld) [Mass/Vol] 11.9 G/dL Invalid Interpretation Code 12.0 - 16.0 G/dL Workflow SS Lymphocytes (Bld) [#/Vol] 2.0 103/mcL Invalid Interpretation Code 0.9 - 4.3 10^3/mcL Workflow SS Lymphocytes/100 WBC (Bld) 25.6 % Invalid Interpretation Code 20.0 - 40.0 % AH Workflow SS Magnesium [Mass/Vol] 2.0 mg/dL Invalid Interpretation Code 1.6 - 2.4 mg/dL ADM SS MCH (RBC) [Entitic mass] 30.3 pg Invalid Interpretation Code 27.0 - 33.0 pg AH Workflow SS MCHC 33.7 G/dL Invalid Interpretation Code 32.0 - 36.0 G/dL Workflow SS MCV (RBC) [Entitic vol] 89.9 fL Invalid Interpretation Code 80.0 - 99.0 fL AH Workflow SS Monocytes (Bld) [#/Vol] 1.1 103/mcL Invalid Interpretation Code 0.1 - 1.4 10^3/mcL Workflow SS Monocytes/100 WBC (Bld) 14.0 % Invalid Interpretation Code 2.0 - 13.0 % Workflow SS Neutrophils (Bld) [#/Vol] 4.0 103/mcL Invalid Interpretation Code 2.3 - 8.1 10^3/mcL Workflow SS Neutrophils/100 WBC (Bld) 52.1 % Invalid Interpretation Code 50.0 - 75.0 % Workflow SS Phosphate [Mass/Vol] 5.0 mg/dL Invalid Interpretation Code 2.4 - 5.1 mg/dL ADM SS Comment on above: Interpretive Data: * *Note - New Reference Range in effect 20 Platelet mean volume (Bld) [Entitic vol] 6.9 fL Invalid Interpretation Code 6.6 - 10.5 fL Workflow SS Platelets (Bld) [#/Vol] 358 103/mcL Invalid Interpretation Code 150 - 450 10^3/mcL AH Workflow SS Potassium [Moles/Vol] 4.4 mmol/L Invalid Interpretation Code 3.5 - 5.0 mEq/L ADM SS Protein [Mass/Vol] 5.9 G/dL Invalid Interpretation Code 5.7 - 8.2 G/dL ADM SS Comment on above: Interpretive Data: * *Note - New Reference Range in effect 20 RBC (Bld) [#/Vol] 3.92 106/mcL Invalid Interpretation Code 4.10 - 5.30 10^6/mcL Workflow SS Sodium [Moles/Vol] 136 mmol/L Invalid Interpretation Code 136 - 145 mEq/L ADM SS Urea nitrogen [Mass/Vol] 6.0 mg/dL Invalid Interpretation Code 8.0 - 22.0 mg/dL ADM SS Urea nitrogen/Creatinine [Mass ratio] 8.1 ratio Invalid Interpretation Code 10.0 - 22.0 ratio AH ADM SS WBC (Bld) [#/Vol] 7.7 103/mcL Invalid Interpretation Code 4.5 - 10.8 10^3/mcL AH Workflow SS MGon 07-15-2023 Magnesium [Mass/Vol] 2.0 mg/dL Normal 1.6-2.4 [facility]ly [facility], [facility] ([place]) Comment on above: Performed By: #### C BC, ADIFF, PRO, BMP, ANEU, GFR #### [place] [address] PHOSon 07-15-2023 Phosphate [Mass/Vol] 5.0 mg/dL Normal 2.4-5.1 [facility], [facility] ([place]) Comment on above: Result Comment: No te - New Reference Range in effect 20 Performed By: #### C BC, ADIFF, PRO, BMP, ANEU, GFR #### [address] [address] .Auto Diffon 07-14-2023 Basophil, Absolute 0.1 10 3/mcL Normal 0.0-0.3 [facility], [facility] ([place]) Comment on above: Performed By: #### C BC, ADIFF, PRO, BMP, ANEU, GFR #### [place] [address] Basophils/100 WBC (Bld) 0.8 % Normal 0.0-2.5 A [facility] ([place]) Comment on above: Performed By: #### C BC, ADIFF, PRO, BMP, ANEU, GFR #### [address] [address] Eosinophil, Absolute 0.5 10 3/mcL Normal 0.0-0.7 [facility] ([place]) Comment on above: Performed By: #### C BC, ADIFF, PRO, BMP, ANEU, GFR #### [address] [address] Eosinophils/100 WBC (Bld) 6.0 % Normal 0.0-6.0 [facility] ([place]) Comment on above: Performed By: #### C BC, ADIFF, PRO, BMP, ANEU, GFR #### [address] [address] Lymphocyte, Absolute 1.6 10 3/mcL Normal 0.9-4.3 [facility] ([place]) Comment on above: Performed By: #### C BC, ADIFF, PRO, BMP, ANEU, GFR #### [address] [address] Lymphocytes/100 WBC (Bld) 21.0 % Normal 20.0-40.0 [facility] ([place]) Comment on above: Performed By: #### C BC, ADIFF, PRO, BMP, ANEU, GFR #### [address] [address] Monocyte, Absolute 1.1 10 3/mcL Normal 0.1-1.4 [facility] ([place]) Comment on above: Performed By: #### C BC, ADIFF, PRO, BMP, ANEU, GFR #### [address] [address] Monocytes/100 WBC (Bld) 14.0 % High 2.0-13.0 A [facility] ([place]) Comment on above: Performed By: #### C BC, ADIFF, PRO, BMP, ANEU, GFR #### [address] [address] Neutrophils/100 WBC (Bld) 58.2 % Normal 50.0-75.0 [facility] ([place] Comment on above: Performed By: #### C BC, ADIFF, PRO, BMP, ANEU, GFR #### [address] [address] .GFRon 07-14-2023 GFR Non- >60 Normal [facility] ([place] Comment on above: Result Comment: GFR Population mean for , Non- Americans Ages 20-29 = 116 mL/min/1.73 sq.m. Ages 30-39 = 107 mL/min/1.73 sq.m. Ages 40-49 = 99 mL/min/1.73 sq.m. Ages 50-59 = 93 mL/min/1.73 sq.m. Ages 60-69 = 85 mL/min/1.73 sq.m. Ages 70+ = 75 mL/min/1.73 sq.m. Chronic Kidney Disease: Less than 60 mL/min/1.73 square meters End Stage Renal Disease: Less than 15 mL/min/1.73 square meters Performed By: #### Deondre FR, BMP #### [place] [address] GFR >60 Normal [facility] ([place]) Comment on above: Result Comment: GFR Population mean for , Non- Americans Ages 20-29 = 116 mL/min/1.73 sq.m. Ages 30-39 = 107 mL/min/1.73 sq.m. Ages 40-49 = 99 mL/min/1.73 sq.m. Ages 50-59 = 93 mL/min/1.73 sq.m. Ages 60-69 = 85 mL/min/1.73 sq.m. Ages 70+ = 75 mL/min/1.73 sq.m. Chronic Kidney Disease: Less than 60 mL/min/1.73 square meters End Stage Renal Disease: Less than 15 mL/min/1.73 square meters Performed By: #### Deondre FR, BMP #### [place] [address] .NEUABSon 07-14-2023 Neutrophil, Absolute 4.5 10 3/mcL Normal 2.3-8.1 [facility] ([place]) Comment on above: Performed By: #### C BC, ADIFF, PRO, BMP, ANEU, GFR #### [address] [address] CBCon 07-14-2023 Erythrocyte distribution width (RBC) [Ratio] 15.4 % Normal 11.5-15.5 [facility] ([place] Comment on above: Performed By: #### C BC, ADIFF, PRO, BMP, ANEU, GFR #### [address] [address] Hematocrit (Bld) [Volume fraction] 36.1 % Normal 34.0-46.0 [facility] ([place] Comment on above: Performed By: #### C BC, ADIFF, PRO, BMP, ANEU, GFR #### [place] [address] Hgb 12.0 G/dL Normal 12.0-16.0 [facility] ([place] Comment on above: Performed By: #### C BC, ADIFF, PRO, BMP, ANEU, GFR #### [place] [address] MCH (RBC) [Entitic mass] 29.8 pg Normal 27.0-33.0 [facility] ([place] Comment on above: Performed By: #### C BC, ADIFF, PRO, BMP, ANEU, GFR #### [place] [address] MCHC 33.3 G/dL Normal 32.0-36.0 [facility] ([place] Comment on above: Performed By: #### C BC, ADIFF, PRO, BMP, ANEU, GFR #### [place] [address] MCV (RBC) [Entitic vol] 89.6 fL Normal 80.0-99.0 A [facility] ([place]) Comment on above: Performed By: #### C BC, ADIFF, PRO, BMP, ANEU, GFR #### [place] [address] Platelet 299 10 3/mcL Normal 150-450 [facility] ([place] Comment on above: Performed By: #### C BC, ADIFF, PRO, BMP, ANEU, GFR #### [place] [address] Platelet mean volume (Bld) [Entitic vol] 7.7 fL Normal 6.6-10.5 [facility] ([place] Comment on above: Performed By: #### C BC, ADIFF, PRO, BMP, ANEU, GFR #### [place] [address] RBC 4.03 10 6/mcL Low 4.10-5.30 [facility] ([place]) Comment on above: Performed By: #### C BC, ADIFF, PRO, BMP, ANEU, GFR #### [address] [address] WBC 7.7 10 3/mcL Normal 4.5-10.8 [facility] ([place] Comment on above: Performed By: #### C BC, ADIFF, PRO, BMP, ANEU, GFR #### [address] [address] CMPon 07-14-2023 BUN/Creatinine Ratio Unable to Calculate Normal 10.0-2 2.0 [facility] ([place] Comment on above: Result Comment: Unab le to calculate this test result accurately. Results used to calculate this test are outside the reportable range. Performed By: #### G FR, BMP #### [place] [address] Urea nitrogen [Mass/Vol] mg/dL Low 8.0-22.0 [facility] ([place] Comment on above: Performed By: #### G FR, BMP #### [place] [address] Albumin Level 2.8 G/dL Low 3.2-4.8 [facility] ([place] Comment on above: Performed By: #### Deondre FR, BMP #### [place] [address] Albumin/Globulin [Mass ratio] 0.9 {ratio} Normal 0.9-1.6 [facility] ([place] Comment on above: Performed By: #### G FR, BMP #### [place] [id number] ALP [Catalytic activity/Vol] 84 U/L Normal 38-126 [facility] ([place] Comment on above: Performed By: #### G FR, BMP #### [place] [id number] ALT/SGPT <8 Low 10-49 [facility] ([place] Comment on above: Performed By: #### G FR, BMP #### [place] [id number] AST [Catalytic activity/Vol] 11 U/L Normal 8-34 [facility] ([place] Comment on above: Performed By: #### Deondre VALDES, BMP #### [address] [address] Bili Total 0.30 mg/dL Normal 0.20-1.20 [facility] ([place] Comment on above: Result Comment: Use of this assay is not recommended for patients undergoing treatment with eltrombopag due to the potential for falsely elevated results. Performed By: #### Deondre VALDES, BMP #### [place] [id number] Calcium [Mass/Vol] 9.2 mg/dL Normal 8.7-10.4 [facility] ([place]) Comment on above: Performed By: #### Deondre VALDES, BMP #### [place] [id number] Chloride [Moles/Vol] 105 mmol/L Normal 98-110 [facility] ([place]) Comment on above: Performed By: #### Deondre VALDES, BMP #### [place] [id number] CO2 [Moles/Vol] 26 mmol/L Normal 22-32 [facility] ([place] Comment on above: Performed By: #### Deondre VALDES, BMP #### [place] [id number] Creatinine [Mass/Vol] 0.69 mg/dL Normal 0.50-1.20 [facility] ([place]) Comment on above: Performed By: #### Deondre VALDES, BMP #### [place] [address] Electrolyte Balance 8.0 mEq/L Normal 4.0-15.0 [facility] ([place]) Comment on above: Performed By: #### Deondre VALDES, BMP #### [place] [id number] Globulin 3.1 G/dL Normal 1.5-3.8 [facility] ([place] Comment on above: Performed By: #### Deondre VALDES, BMP #### [place] [id number] Glucose [Mass/Vol] 86 mg/dL Normal 70-110 [facility] ([place]) Comment on above: Performed By: #### G , BMP #### [facility] [address] [place] [address] Potassium [Moles/Vol] 4.3 mmol/L Normal 3.5-5.0 [facility] ([place]) Comment on above: Performed By: #### G , BMP #### [address] [address] Sodium [Moles/Vol] 139 mmol/L Normal 136-145 [facility] ([place]) Comment on above: Performed By: #### G , BMP #### [address] [address] Total Protein 5.9 G/dL Normal 5.7-8.2 [facility] ([place] Comment on above: Result Comment: No te - New Reference Range in effect 20 Performed By: #### G , BMP #### [address] [address] LABORATORYOrdered By: SYSTEM SYSTEM on 07-14-2023 Albumin BCP dye [Mass/Vol] 2.8 G/dL Invalid Interpretation Code 3.2 - 4.8 G/dL ADM SS Albumin/Globulin [Mass ratio] 0.9 {ratio} Invalid Interpretation Code 0.9 - 1.6 ratio ADM SS ALP [Catalytic activity/Vol] 84 U/L Invalid Interpretation Code 38 - 126 U/L ADM SS ALT No additional P-5'-P [Catalytic activity/Vol] U/L 1 Invalid Interpretation Code 10 - 49 U/L ADM SS AST [Catalytic activity/Vol] 11 U/L Invalid Interpretation Code 8 - 34 U/L ADM SS Basophils (Bld) [#/Vol] 0.1 103/mcL Invalid Interpretation Code 0.0 - 0.3 10^3/mcL Workflow SS Basophils/100 WBC (Bld) 0.8 % Invalid Interpretation Code 0.0 - 2.5 % Workflow SS Bilirubin [Mass/Vol] 0.30 mg/dL Invalid Interpretation Code 0.20 - 1.20 mg/dL ADM SS Comment on above: Interpretive Data: U se of this assay is not recommended for patients undergoing treatment with eltrombopag due to the potential for falsely elevated results. Calcium [Mass/Vol] 9.2 mg/dL Invalid Interpretation Code 8.7 - 10.4 mg/dL ADM SS Chloride [Moles/Vol] 105 mmol/L Invalid Interpretation Code 98 - 110 mEq/L ADM SS CO2 [Moles/Vol] 26 mmol/L Invalid Interpretation Code 22 - 32 mEq/L ADM SS Creatinine [Mass/Vol] 0.69 mg/dL Invalid Interpretation Code 0.50 - 1.20 mg/dL ADM SS Electrolyte Balance 8.0 mEq/L Invalid Interpretation Code 4.0 - 15.0 mEq/L ADM SS Eosinophils (Bld) [#/Vol] 0.5 103/mcL Invalid Interpretation Code 0.0 - 0.7 10^3/mcL Workflow SS Eosinophils/100 WBC (Bld) 6.0 % Invalid Interpretation Code 0.0 - 6.0 % Workflow SS Erythrocyte distribution width (RBC) [Ratio] 15.4 % Invalid Interpretation Code 11.5 - 15.5 % Workflow SS GFR/1.73 sq M.predicted among blacks MDRD (S/P/Bld) [Vol rate/Area] ml/min/1.73sqm Invalid Interpretation Code [employer] Chemistry S Comment on above: Interpretive Data: GFR Population mean for , Non- Americans Ages 20-29 = 116 mL/min/1.73 sq.m. Ages 30-39 = 107 mL/min/1.73 sq.m. Ages 40-49 = 99 mL/min/1.73 sq.m. Ages 50-59 = 93 mL/min/1.73 sq.m. Ages 60-69 = 85 mL/min/1.73 sq.m. Ages 70+ = 75 mL/min/1.73 sq.m. Chronic Kidney Disease: Less than 60 mL/min/1.73 square meters End Stage Renal Disease: Less than 15 mL/min/1.73 square meters GFR/1.73 sq M.predicted among non-blacks MDRD (S/P/Bld) [Vol rate/Area] ml/min/1.73sqm Invalid Interpretation Code [employer] Chemistry S Comment on above: Interpretive Data: GFR Population mean for , Non- Americans Ages 20-29 = 116 mL/min/1.73 sq.m. Ages 30-39 = 107 mL/min/1.73 sq.m. Ages 40-49 = 99 mL/min/1.73 sq.m. Ages 50-59 = 93 mL/min/1.73 sq.m. Ages 60-69 = 85 mL/min/1.73 sq.m. Ages 70+ = 75 mL/min/1.73 sq.m. Chronic Kidney Disease: Less than 60 mL/min/1.73 square meters End Stage Renal Disease: Less than 15 mL/min/1.73 square meters Globulin 3.1 G/dL Invalid Interpretation Code 1.5 - 3.8 G/dL ADM SS Glucose [Mass/Vol] 86 mg/dL Invalid Interpretation Code 70 - 110 mg/dL ADM SS Hematocrit (Bld) [Volume fraction] 36.1 % Invalid Interpretation Code 34.0 - 46.0 % AH Workflow SS Hemoglobin (Bld) [Mass/Vol] 12.0 G/dL Invalid Interpretation Code 12.0 - 16.0 G/dL AH Workflow SS Lymphocytes (Bld) [#/Vol] 1.6 103/mcL Invalid Interpretation Code 0.9 - 4.3 10^3/mcL Workflow SS Lymphocytes/100 WBC (Bld) 21.0 % Invalid Interpretation Code 20.0 - 40.0 % AH Workflow SS Magnesium [Mass/Vol] 2.0 mg/dL Invalid Interpretation Code 1.6 - 2.4 mg/dL ADM SS MCH (RBC) [Entitic mass] 29.8 pg Invalid Interpretation Code 27.0 - 33.0 pg AH Workflow SS MCHC 33.3 G/dL Invalid Interpretation Code 32.0 - 36.0 G/dL AH Workflow SS MCV (RBC) [Entitic vol] 89.6 fL Invalid Interpretation Code 80.0 - 99.0 fL Workflow SS Monocytes (Bld) [#/Vol] 1.1 103/mcL Invalid Interpretation Code 0.1 - 1.4 10^3/mcL AH Workflow SS Monocytes/100 WBC (Bld) 14.0 % Invalid Interpretation Code 2.0 - 13.0 % AH Workflow SS Neutrophils (Bld) [#/Vol] 4.5 103/mcL Invalid Interpretation Code 2.3 - 8.1 10^3/mcL AH Workflow SS Neutrophils/100 WBC (Bld) 58.2 % Invalid Interpretation Code 50.0 - 75.0 % Workflow SS Phosphate [Mass/Vol] 5.3 mg/dL Invalid Interpretation Code 2.4 - 5.1 mg/dL ADM SS Comment on above: Interpretive Data: * *Note - New Reference Range in effect 20 Platelet mean volume (Bld) [Entitic vol] 7.7 fL Invalid Interpretation Code 6.6 - 10.5 fL AH Workflow SS Platelets (Bld) [#/Vol] 299 103/mcL Invalid Interpretation Code 150 - 450 10^3/mcL AH Workflow SS Potassium [Moles/Vol] 4.3 mmol/L Invalid Interpretation Code 3.5 - 5.0 mEq/L ADM SS Protein [Mass/Vol] 5.9 G/dL Invalid Interpretation Code 5.7 - 8.2 G/dL ADM SS Comment on above: Interpretive Data: * *Note - New Reference Range in effect 20 RBC (Bld) [#/Vol] 4.03 106/mcL Invalid Interpretation Code 4.10 - 5.30 10^6/mcL AH Workflow SS Sodium [Moles/Vol] 139 mmol/L Invalid Interpretation Code 136 - 145 mEq/L ADM SS WBC (Bld) [#/Vol] 7.7 103/mcL Invalid Interpretation Code 4.5 - 10.8 10^3/mcL Workflow SS LABORATORYOrdered By: Radha ennis on 07-14-2023 Urea nitrogen [Mass/Vol] mg/dL Invalid Interpretation Code 8.0 - 22.0 mg/dL Chemistry S Urea nitrogen/Creatinine [Mass ratio] Unable to Calculate Invalid Interpretation Code 10.0 - 22.0 Chemistry S Comment on above: Result Comment: Unab le to calculate this test result accurately. Results used to calculate this test are outside the reportable range. MGon 07-14-2023 Magnesium [Mass/Vol] 2.0 mg/dL Normal 1.6-2.4 [facility] ([place]) Comment on above: Performed By: #### C BC, ADIFF, PRO, BMP, ANEU, GFR #### [address] [address] PHOSon 07-14-2023 Phosphate [Mass/Vol] 5.3 mg/dL High 2.4-5.1 [facility] ([place]) Comment on above: Result Comment: No te - New Reference Range in effect 20 Performed By: #### C BC, ADIFF, PRO, BMP, ANEU, GFR #### [address] [address] .Auto Diffon 07-13-2023 Basophil, Absolute 0.1 10 3/mcL Normal 0.0-0.3 [facility] ([place]) Comment on above: Performed By: #### C BC, ADIFF, PRO, BMP, ANEU, GFR #### [address] [address] Basophils/100 WBC (Bld) 1.2 % Normal 0.0-2.5 A [facility] ([place]) Comment on above: Performed By: #### C BC, ADIFF, PRO, BMP, ANEU, GFR #### [address] [address] Eosinophil, Absolute 0.5 10 3/mcL Normal 0.0-0.7 [facility] ([place]) Comment on above: Performed By: #### C BC, ADIFF, PRO, BMP, ANEU, GFR #### [address] [address] Eosinophils/100 WBC (Bld) 5.6 % Normal 0.0-6.0 [facility] ([place]) Comment on above: Performed By: #### C BC, ADIFF, PRO, BMP, ANEU, GFR #### [address] [address] Lymphocyte, Absolute 1.5 10 3/mcL Normal 0.9-4.3 [facility] ([place]) Comment on above: Performed By: #### C BC, ADIFF, PRO, BMP, ANEU, GFR #### [address] [address] Lymphocytes/100 WBC (Bld) 18.4 % Low 20.0-40.0 [facility] ([place] Comment on above: Performed By: #### C BC, ADIFF, PRO, BMP, ANEU, GFR #### [address] [address] Monocyte, Absolute 0.8 10 3/mcL Normal 0.1-1.4 [facility] ([place]) Comment on above: Performed By: #### C BC, ADIFF, PRO, BMP, ANEU, GFR #### [address] [address] Monocytes/100 WBC (Bld) 10.2 % Normal 2.0-13.0 A [facility] ([place]) Comment on above: Performed By: #### C BC, ADIFF, PRO, BMP, ANEU, GFR #### [address] [address] Neutrophils/100 WBC (Bld) 64.6 % Normal 50.0-75.0 [facility] ([place] Comment on above: Performed By: #### C BC, ADIFF, PRO, BMP, ANEU, GFR #### [address] [address] .GFRon 07-13-2023 GFR >60 Normal [facility] ([place] Comment on above: Result Comment: GFR Population mean for , Non- Americans Ages 20-29 = 116 mL/min/1.73 sq.m. Ages 30-39 = 107 mL/min/1.73 sq.m. Ages 40-49 = 99 mL/min/1.73 sq.m. Ages 50-59 = 93 mL/min/1.73 sq.m. Ages 60-69 = 85 mL/min/1.73 sq.m. Ages 70+ = 75 mL/min/1.73 sq.m. Chronic Kidney Disease: Less than 60 mL/min/1.73 square meters End Stage Renal Disease: Less than 15 mL/min/1.73 square meters Performed By: #### C BC, ADIFF, PRO, BMP, ANEU, GFR #### [address] [address] GFR Non- >60 Normal [facility] ([place]) Comment on above: Result Comment: GFR Population mean for , Non- Americans Ages 20-29 = 116 mL/min/1.73 sq.m. Ages 30-39 = 107 mL/min/1.73 sq.m. Ages 40-49 = 99 mL/min/1.73 sq.m. Ages 50-59 = 93 mL/min/1.73 sq.m. Ages 60-69 = 85 mL/min/1.73 sq.m. Ages 70+ = 75 mL/min/1.73 sq.m. Chronic Kidney Disease: Less than 60 mL/min/1.73 square meters End Stage Renal Disease: Less than 15 mL/min/1.73 square meters Performed By: #### C BC, ADIFF, PRO, BMP, ANEU, GFR #### [place] [address] .NEUABSon 07-13-2023 Neutrophil, Absolute 5.2 10 3/mcL Normal 2.3-8.1 [facility] ([place]) Comment on above: Performed By: #### C BC, ADIFF, PRO, BMP, ANEU, GFR #### [place] [address] CBCon 07-13-2023 Erythrocyte distribution width (RBC) [Ratio] 15.3 % Normal 11.5-15.5 [facility] ([place] Comment on above: Performed By: #### C BC, ADIFF, PRO, BMP, ANEU, GFR #### [place] [address] Hematocrit (Bld) [Volume fraction] 35.2 % Normal 34.0-46.0 [facility] ([place] Comment on above: Performed By: #### C BC, ADIFF, PRO, BMP, ANEU, GFR #### [place] [address] Hgb 11.5 G/dL Low 12.0-16.0 [facility] ([place] Comment on above: Performed By: #### C BC, ADIFF, PRO, BMP, ANEU, GFR #### [place] [address] MCH (RBC) [Entitic mass] 29.5 pg Normal 27.0-33.0 [facility] ([place] Comment on above: Performed By: #### C BC, ADIFF, PRO, BMP, ANEU, GFR #### [place] [address] MCHC 32.6 G/dL Normal 32.0-36.0 [facility] ([place] Comment on above: Performed By: #### C BC, ADIFF, PRO, BMP, ANEU, GFR #### [place] [address] MCV (RBC) [Entitic vol] 90.5 fL Normal 80.0-99.0 [facility] ([place]) Comment on above: Performed By: #### C BC, ADIFF, PRO, BMP, ANEU, GFR #### [place] [address] Platelet 295 10 3/mcL Normal 150-450 [facility] ([place] Comment on above: Performed By: #### C BC, ADIFF, PRO, BMP, ANEU, GFR #### [place] [address] Platelet mean volume (Bld) [Entitic vol] 7.8 fL Normal 6.6-10.5 [facility] ([place] Comment on above: Performed By: #### C BC, ADIFF, PRO, BMP, ANEU, GFR #### [place] [address] RBC 3.89 10 6/mcL Low 4.10-5.30 [facility] ([place] Comment on above: Performed By: #### C BC, ADIFF, PRO, BMP, ANEU, GFR #### [place] [address] WBC 8.1 10 3/mcL Normal 4.5-10.8 [facility] ([place] Comment on above: Performed By: #### C BC, ADIFF, PRO, BMP, ANEU, GFR #### [place] [address] CMPon 07-13-2023 BUN/Creatinine Ratio Unable to Calculate Normal 10.0-2 2.0 [facility] ([place] Comment on above: Result Comment: Unab le to calculate this test result accurately. Results used to calculate this test are outside the reportable range. Performed By: #### C BC, ADIFF, PRO, BMP, ANEU, GFR #### [place] [address] Urea nitrogen [Mass/Vol] mg/dL Low 8.0-22.0 [facility] ([place] Comment on above: Performed By: #### C BC, ADIFF, PRO, BMP, ANEU, GFR #### [place] [id number] Albumin Level 2.6 G/dL Low 3.2-4.8 [facility] ([place] Comment on above: Performed By: #### C BC, ADIFF, PRO, BMP, ANEU, GFR #### [place] [id number] Albumin/Globulin [Mass ratio] 1.0 {ratio} Normal 0.9-1.6 [facility] ([place] Comment on above: Performed By: #### C BC, ADIFF, PRO, BMP, ANEU, GFR #### [place] [id number] ALP [Catalytic activity/Vol] 78 U/L Normal 38-126 [facility] ([place] Comment on above: Performed By: #### C BC, ADIFF, PRO, BMP, ANEU, GFR #### [place] [address] ALT/SGPT <8 Low 10-49 [facility] ([place] Comment on above: Performed By: #### C BC, ADIFF, PRO, BMP, ANEU, GFR #### [place] [id number] AST [Catalytic activity/Vol] 9 U/L Normal 8-34 [facility] ([place] Comment on above: Performed By: #### C BC, ADIFF, PRO, BMP, ANEU, GFR #### [place] [id number] Bili Total 0.20 mg/dL Normal 0.20-1.20 [facility] ([place] Comment on above: Result Comment: Use of this assay is not recommended for patients undergoing treatment with eltrombopag due to the potential for falsely elevated results. Performed By: #### C BC, ADIFF, PRO, BMP, ANEU, GFR #### [place] [id number] Calcium [Mass/Vol] 8.7 mg/dL Normal 8.7-10.4 [facility] ([place]) Comment on above: Performed By: #### C BC, ADIFF, PRO, BMP, ANEU, GFR #### [place] [id number] Chloride [Moles/Vol] 107 mmol/L Normal 98-110 [facility] ([place]) Comment on above: Performed By: #### C BC, ADIFF, PRO, BMP, ANEU, GFR #### [place] [id number] CO2 [Moles/Vol] 25 mmol/L Normal 22-32 [facility] ([place] Comment on above: Performed By: #### C BC, ADIFF, PRO, BMP, ANEU, GFR #### [address] [address] Creatinine [Mass/Vol] 0.73 mg/dL Normal 0.50-1.20 [facility] ([place]) Comment on above: Performed By: #### C BC, ADIFF, PRO, BMP, ANEU, GFR #### [address] [address] Electrolyte Balance 7.0 mEq/L Normal 4.0-15.0 [facility] ([place]) Comment on above: Performed By: #### C BC, ADIFF, PRO, BMP, ANEU, GFR #### [address] [address] Globulin 2.7 G/dL Normal 1.5-3.8 [facility] ([place] Comment on above: Performed By: #### C BC, ADIFF, PRO, BMP, ANEU, GFR #### [address] [address] Glucose [Mass/Vol] 130 mg/dL High 70-110 [facility] ([place] Comment on above: Performed By: #### C BC, ADIFF, PRO, BMP, ANEU, GFR #### [place] [id number] Potassium [Moles/Vol] 3.9 mmol/L Normal 3.5-5.0 [facility] ([place]) Comment on above: Performed By: #### C BC, ADIFF, PRO, BMP, ANEU, GFR #### [place] [address] Sodium [Moles/Vol] 139 mmol/L Normal 136-145 [facility] ([place] Comment on above: Performed By: #### C BC, ADIFF, PRO, BMP, ANEU, GFR #### [place] [address] Total Protein 5.3 G/dL Low 5.7-8.2 [facility] ([place] Comment on above: Result Comment: No te - New Reference Range in effect 20 Performed By: #### C BC, ADIFF, PRO, BMP, ANEU, GFR #### [place] [id number] MGon 07-13-2023 Magnesium [Mass/Vol] 1.8 mg/dL Normal 1.6-2.4 [facility] ([place] Comment on above: Performed By: #### C BC, ADIFF, PRO, BMP, ANEU, GFR #### [place] [id number] PHOSon 07-13-2023 Phosphate [Mass/Vol] 4.1 mg/dL Normal 2.4-5.1 [facility] ([place] Comment on above: Result Comment: No te - New Reference Range in effect 20 Performed By: #### C BC, ADIFF, PRO, BMP, ANEU, GFR #### [place] [address] .Auto Diffon 07-12-2023 Basophil, Absolute 0.1 10 3/mcL Normal 0.0-0.3 [facility] ([place] Comment on above: Performed By: #### C BC, ADIFF, PRO, BMP, ANEU, GFR #### [address] [address] Basophils/100 WBC (Bld) 1.1 % Normal 0.0-2.5 A [facility] ([place]) Comment on above: Performed By: #### C BC, ADIFF, PRO, BMP, ANEU, GFR #### [address] [address] Eosinophil, Absolute 0.6 10 3/mcL Normal 0.0-0.7 [facility] ([place]) Comment on above: Performed By: #### C BC, ADIFF, PRO, BMP, ANEU, GFR #### [address] [address] Eosinophils/100 WBC (Bld) 8.1 % High 0.0-6.0 [facility] ([place]) Comment on above: Performed By: #### C BC, ADIFF, PRO, BMP, ANEU, GFR #### [address] [address] Lymphocyte, Absolute 1.4 10 3/mcL Normal 0.9-4.3 [facility] ([place]) Comment on above: Performed By: #### C BC, ADIFF, PRO, BMP, ANEU, GFR #### [address] [address] Lymphocytes/100 WBC (Bld) 18.4 % Low 20.0-40.0 [facility] ([place]) Comment on above: Performed By: #### C BC, ADIFF, PRO, BMP, ANEU, GFR #### [address] [address] Monocyte, Absolute 0.7 10 3/mcL Normal 0.1-1.4 [facility] ([place]) Comment on above: Performed By: #### C BC, ADIFF, PRO, BMP, ANEU, GFR #### [address] [address] Monocytes/100 WBC (Bld) 9.0 % Normal 2.0-13.0 [facility] ([place]) Comment on above: Performed By: #### C BC, ADIFF, PRO, BMP, ANEU, GFR #### [address] [address] Neutrophils/100 WBC (Bld) 63.4 % Normal 50.0-75.0 [facility] ([place]) Comment on above: Performed By: #### C BC, ADIFF, PRO, BMP, ANEU, GFR #### [address] [address] .GFRon 07-12-2023 GFR >60 Normal [facility] ([place] Comment on above: Result Comment: GFR Population mean for , Non- Americans Ages 20-29 = 116 mL/min/1.73 sq.m. Ages 30-39 = 107 mL/min/1.73 sq.m. Ages 40-49 = 99 mL/min/1.73 sq.m. Ages 50-59 = 93 mL/min/1.73 sq.m. Ages 60-69 = 85 mL/min/1.73 sq.m. Ages 70+ = 75 mL/min/1.73 sq.m. Chronic Kidney Disease: Less than 60 mL/min/1.73 square meters End Stage Renal Disease: Less than 15 mL/min/1.73 square meters Performed By: #### C BC, ADIFF, PRO, BMP, ANEU, GFR #### [place] [id number] GFR Non- >60 Normal [facility] ([place] Comment on above: Result Comment: GFR Population mean for , Non- Americans Ages 20-29 = 116 mL/min/1.73 sq.m. Ages 30-39 = 107 mL/min/1.73 sq.m. Ages 40-49 = 99 mL/min/1.73 sq.m. Ages 50-59 = 93 mL/min/1.73 sq.m. Ages 60-69 = 85 mL/min/1.73 sq.m. Ages 70+ = 75 mL/min/1.73 sq.m. Chronic Kidney Disease: Less than 60 mL/min/1.73 square meters End Stage Renal Disease: Less than 15 mL/min/1.73 square meters Performed By: #### C BC, ADIFF, PRO, BMP, ANEU, GFR #### [address] [address] .NEUABSon 07-12-2023 Neutrophil, Absolute 4.8 10 3/mcL Normal 2.3-8.1 [facility] ([place] Comment on above: Performed By: #### C BC, ADIFF, PRO, BMP, ANEU, GFR #### [address] [address] CBCon 07-12-2023 Erythrocyte distribution width (RBC) [Ratio] 15.7 % High 11.5-15.5 [facility] ([place] Comment on above: Performed By: #### C BC, ADIFF, PRO, BMP, ANEU, GFR #### [place] [address] Hematocrit (Bld) [Volume fraction] 35.4 % Normal 34.0-46.0 [facility] ([place] Comment on above: Performed By: #### C BC, ADIFF, PRO, BMP, ANEU, GFR #### [place] [address] Hgb 11.6 G/dL Low 12.0-16.0 [facility] ([place] Comment on above: Performed By: #### C BC, ADIFF, PRO, BMP, ANEU, GFR #### [place] [address] MCH (RBC) [Entitic mass] 29.9 pg Normal 27.0-33.0 [facility] ([place] Comment on above: Performed By: #### C BC, ADIFF, PRO, BMP, ANEU, GFR #### [place] [address] MCHC 32.6 G/dL Normal 32.0-36.0 [facility] ([place] Comment on above: Performed By: #### C BC, ADIFF, PRO, BMP, ANEU, GFR #### [place] [address] MCV (RBC) [Entitic vol] 91.5 fL Normal 80.0-99.0 A [facility] ([place] Comment on above: Performed By: #### C BC, ADIFF, PRO, BMP, ANEU, GFR #### [place] [address] Platelet 251 10 3/mcL Normal 150-450 [facility] ([place] Comment on above: Performed By: #### C BC, ADIFF, PRO, BMP, ANEU, GFR #### [place] [address] Platelet mean volume (Bld) [Entitic vol] 7.6 fL Normal 6.6-10.5 [facility] ([place] Comment on above: Performed By: #### C BC, ADIFF, PRO, BMP, ANEU, GFR #### [place] [id number] RBC 3.87 10 6/mcL Low 4.10-5.30 [facility] ([place] Comment on above: Performed By: #### C BC, ADIFF, PRO, BMP, ANEU, GFR #### [place] [id number] WBC 7.5 10 3/mcL Normal 4.5-10.8 [facility] ([place] Comment on above: Performed By: #### C BC, ADIFF, PRO, BMP, ANEU, GFR #### [place] [id number] CMPon 07-12-2023 Albumin Level 2.5 G/dL Low 3.2-4.8 [facility] ([place] Comment on above: Performed By: #### C BC, ADIFF, PRO, BMP, ANEU, GFR #### [place] [address] Albumin/Globulin [Mass ratio] 0.9 {ratio} Normal 0.9-1.6 [facility] ([place] Comment on above: Performed By: #### C BC, ADIFF, PRO, BMP, ANEU, GFR #### [place] [id number] ALP [Catalytic activity/Vol] 78 U/L Normal 38-126 [facility] ([place] Comment on above: Performed By: #### C BC, ADIFF, PRO, BMP, ANEU, GFR #### [place] [address] ALT/SGPT <8 Low 10-49 [facility] ([place] Comment on above: Performed By: #### C BC, ADIFF, PRO, BMP, ANEU, GFR #### [place] [id number] AST [Catalytic activity/Vol] 10 U/L Normal 8-34 [facility] ([place] Comment on above: Performed By: #### C BC, ADIFF, PRO, BMP, ANEU, GFR #### [address] [address] Bili Total <0.20 Normal 0.20-1.20 [facility] ([place] Comment on above: Result Comment: Use of this assay is not recommended for patients undergoing treatment with eltrombopag due to the potential for falsely elevated results. Performed By: #### C BC, ADIFF, PRO, BMP, ANEU, GFR #### [place] [id number] BUN/Creatinine Ratio 10.8 ratio Normal 10.0-22.0 [facility] ([place] Comment on above: Performed By: #### C BC, ADIFF, PRO, BMP, ANEU, GFR #### [place] [id number] Calcium [Mass/Vol] 8.6 mg/dL Low 8.7-10.4 [facility] ([place] Comment on above: Performed By: #### C BC, ADIFF, PRO, BMP, ANEU, GFR #### [place] [address] Chloride [Moles/Vol] 109 mmol/L Normal 98-110 [facility] ([place] Comment on above: Performed By: #### C BC, ADIFF, PRO, BMP, ANEU, GFR #### [place] [id number] CO2 [Moles/Vol] 23 mmol/L Normal 22-32 [facility] ([place] Comment on above: Performed By: #### C BC, ADIFF, PRO, BMP, ANEU, GFR #### [address] [address] Creatinine [Mass/Vol] 0.74 mg/dL Normal 0.50-1.20 [facility] ([place]) Comment on above: Performed By: #### C BC, ADIFF, PRO, BMP, ANEU, GFR #### [address] [address] Electrolyte Balance 9.0 mEq/L Normal 4.0-15.0 [facility] ([place]) Comment on above: Performed By: #### C BC, ADIFF, PRO, BMP, ANEU, GFR #### [address] [address] Globulin 2.7 G/dL Normal 1.5-3.8 [facility] ([place] Comment on above: Performed By: #### C BC, ADIFF, PRO, BMP, ANEU, GFR #### [address] [address] Glucose [Mass/Vol] 86 mg/dL Normal 70-110 [facility] ([place] Comment on above: Performed By: #### C BC, ADIFF, PRO, BMP, ANEU, GFR #### [address] [address] Potassium [Moles/Vol] 4.4 mmol/L Normal 3.5-5.0 [facility] ([place]) Comment on above: Performed By: #### C BC, ADIFF, PRO, BMP, ANEU, GFR #### [address] [address] Sodium [Moles/Vol] 141 mmol/L Normal 136-145 [facility] ([place] Comment on above: Performed By: #### C BC, ADIFF, PRO, BMP, ANEU, GFR #### [address] [address] Total Protein 5.2 G/dL Low 5.7-8.2 [facility] ([place] Comment on above: Result Comment: No te - New Reference Range in effect 20 Performed By: #### C BC, ADIFF, PRO, BMP, ANEU, GFR #### [address] [address] Urea nitrogen [Mass/Vol] 8.0 mg/dL Normal 8.0-22.0 [facility] ([place] Comment on above: Performed By: #### C BC, ADIFF, PRO, BMP, ANEU, GFR #### [address] [address] MGon 07-12-2023 Magnesium [Mass/Vol] 2.0 mg/dL Normal 1.6-2.4 [facility] ([place] Comment on above: Performed By: #### C BC, ADIFF, PRO, BMP, ANEU, GFR #### [address] [address] PHOSon 07-12-2023 Phosphate [Mass/Vol] 4.1 mg/dL Normal 2.4-5.1 [facility] ([place] Comment on above: Result Comment: No te - New Reference Range in effect 20 Performed By: #### C BC, ADIFF, PRO, BMP, ANEU, GFR #### [address] [address] .Auto Diffon 07-11-2023 Basophil, Absolute 0.1 10 3/mcL Normal 0.0-0.3 [facility] ([place] Comment on above: Performed By: #### C BC, ADIFF, PRO, BMP, ANEU, GFR #### [address] [address] Basophils/100 WBC (Bld) 0.8 % Normal 0.0-2.5 A [facility] ([place]) Comment on above: Performed By: #### C BC, ADIFF, PRO, BMP, ANEU, GFR #### [address] [address] Eosinophil, Absolute 0.6 10 3/mcL Normal 0.0-0.7 [facility] ([place]) Comment on above: Performed By: #### C BC, ADIFF, PRO, BMP, ANEU, GFR #### [address] [address] Eosinophils/100 WBC (Bld) 5.9 % Normal 0.0-6.0 [facility] ([place] Comment on above: Performed By: #### C BC, ADIFF, PRO, BMP, ANEU, GFR #### [address] [address] Lymphocyte, Absolute 1.3 10 3/mcL Normal 0.9-4.3 [facility] ([place] Comment on above: Performed By: #### C BC, ADIFF, PRO, BMP, ANEU, GFR #### [address] [address] Lymphocytes/100 WBC (Bld) 12.3 % Low 20.0-40.0 [facility] ([place] Comment on above: Performed By: #### C BC, ADIFF, PRO, BMP, ANEU, GFR #### [address] [address] Monocyte, Absolute 1.2 10 3/mcL Normal 0.1-1.4 [facility] ([place] Comment on above: Performed By: #### C BC, ADIFF, PRO, BMP, ANEU, GFR #### [address] [address] Monocytes/100 WBC (Bld) 11.5 % Normal 2.0-13.0 [facility] ([place]) Comment on above: Performed By: #### C BC, ADIFF, PRO, BMP, ANEU, GFR #### [address] [address] Neutrophils/100 WBC (Bld) 69.5 % Normal 50.0-75.0 [facility] ([place] Comment on above: Performed By: #### C BC, ADIFF, PRO, BMP, ANEU, GFR #### [address] [address] .GFRon 07-11-2023 GFR Non- >60 Normal [facility] ([place] Comment on above: Result Comment: GFR Population mean for , Non- Americans Ages 20-29 = 116 mL/min/1.73 sq.m. Ages 30-39 = 107 mL/min/1.73 sq.m. Ages 40-49 = 99 mL/min/1.73 sq.m. Ages 50-59 = 93 mL/min/1.73 sq.m. Ages 60-69 = 85 mL/min/1.73 sq.m. Ages 70+ = 75 mL/min/1.73 sq.m. Chronic Kidney Disease: Less than 60 mL/min/1.73 square meters End Stage Renal Disease: Less than 15 mL/min/1.73 square meters Performed By: #### C BC, ADIFF, PRO, BMP, ANEU, GFR #### [address] [address] GFR >60 Normal [facility] ([place] Comment on above: Result Comment: GFR Population mean for , Non- Americans Ages 20-29 = 116 mL/min/1.73 sq.m. Ages 30-39 = 107 mL/min/1.73 sq.m. Ages 40-49 = 99 mL/min/1.73 sq.m. Ages 50-59 = 93 mL/min/1.73 sq.m. Ages 60-69 = 85 mL/min/1.73 sq.m. Ages 70+ = 75 mL/min/1.73 sq.m. Chronic Kidney Disease: Less than 60 mL/min/1.73 square meters End Stage Renal Disease: Less than 15 mL/min/1.73 square meters Performed By: #### C BC, ADIFF, PRO, BMP, ANEU, GFR #### [place] [address] .NEUABSon 07-11-2023 Neutrophil, Absolute 7.1 10 3/mcL Normal 2.3-8.1 [facility] ([place] Comment on above: Performed By: #### C BC, ADIFF, PRO, BMP, ANEU, GFR #### [address] [address] CBCon 07-11-2023 Erythrocyte distribution width (RBC) [Ratio] 15.7 % High 11.5-15.5 [facility] ([place] Comment on above: Performed By: #### C BC, ADIFF, PRO, BMP, ANEU, GFR #### [address] [address] Hematocrit (Bld) [Volume fraction] 37.2 % Normal 34.0-46.0 [facility] ([place] Comment on above: Performed By: #### C BC, ADIFF, PRO, BMP, ANEU, GFR #### [address] [address] Hgb 12.2 G/dL Normal 12.0-16.0 [facility] ([place] Comment on above: Performed By: #### C BC, ADIFF, PRO, BMP, ANEU, GFR #### [place] [id number] MCH (RBC) [Entitic mass] 29.9 pg Normal 27.0-33.0 [facility] ([place] Comment on above: Performed By: #### C BC, ADIFF, PRO, BMP, ANEU, GFR #### [place] [id number] MCHC 32.9 G/dL Normal 32.0-36.0 [facility] ([place] Comment on above: Performed By: #### C BC, ADIFF, PRO, BMP, ANEU, GFR #### [place] [address] MCV (RBC) [Entitic vol] 90.8 fL Normal 80.0-99.0 A [facility] ([place]) Comment on above: Performed By: #### C BC, ADIFF, PRO, BMP, ANEU, GFR #### [place] [address] Platelet 226 10 3/mcL Normal 150-450 [facility] ([place] Comment on above: Performed By: #### C BC, ADIFF, PRO, BMP, ANEU, GFR #### [place] [address] Platelet mean volume (Bld) [Entitic vol] 7.6 fL Normal 6.6-10.5 [facility] ([place] Comment on above: Performed By: #### C BC, ADIFF, PRO, BMP, ANEU, GFR #### [place] [id number] RBC 4.10 10 6/mcL Normal 4.10-5.30 [facility] ([place] Comment on above: Performed By: #### C BC, ADIFF, PRO, BMP, ANEU, GFR #### [place] [id number] WBC 10.3 10 3/mcL Normal 4.5-10.8 [facility] ([place] Comment on above: Performed By: #### C BC, ADIFF, PRO, BMP, ANEU, GFR #### [address] [address] CMPon 07-11-2023 Albumin Level 2.7 G/dL Low 3.2-4.8 [facility] ([place] Comment on above: Performed By: #### C BC, ADIFF, PRO, BMP, ANEU, GFR #### [place] [id number] Albumin/Globulin [Mass ratio] 1.0 {ratio} Normal 0.9-1.6 [facility] ([place] Comment on above: Performed By: #### C BC, ADIFF, PRO, BMP, ANEU, GFR #### [place] [id number] ALP [Catalytic activity/Vol] 85 U/L Normal 38-126 [facility] ([place] Comment on above: Performed By: #### C BC, ADIFF, PRO, BMP, ANEU, GFR #### [place] [address] ALT/SGPT <8 Low 10-49 [facility] ([place] Comment on above: Performed By: #### C BC, ADIFF, PRO, BMP, ANEU, GFR #### [place] [address] AST [Catalytic activity/Vol] 12 U/L Normal 8-34 [facility] ([place] Comment on above: Performed By: #### C BC, ADIFF, PRO, BMP, ANEU, GFR #### [place] [id number] Bili Total 0.20 mg/dL Normal 0.20-1.20 [facility] ([place] Comment on above: Result Comment: Use of this assay is not recommended for patients undergoing treatment with eltrombopag due to the potential for falsely elevated results. Performed By: #### C BC, ADIFF, PRO, BMP, ANEU, GFR #### [place] [address] BUN/Creatinine Ratio 8.3 ratio Low 10.0-22.0 [facility] ([place] Comment on above: Performed By: #### C BC, ADIFF, PRO, BMP, ANEU, GFR #### [place] [id number] Calcium [Mass/Vol] 8.7 mg/dL Normal 8.7-10.4 [facility] ([place]) Comment on above: Performed By: #### C BC, ADIFF, PRO, BMP, ANEU, GFR #### [place] [id number] Chloride [Moles/Vol] 107 mmol/L Normal 98-110 [facility] ([place] Comment on above: Performed By: #### C BC, ADIFF, PRO, BMP, ANEU, GFR #### [place] [id number] CO2 [Moles/Vol] 24 mmol/L Normal 22-32 [facility] ([place] Comment on above: Performed By: #### C BC, ADIFF, PRO, BMP, ANEU, GFR #### [place] [address] Creatinine [Mass/Vol] 0.84 mg/dL Normal 0.50-1.20 [facility] ([place]) Comment on above: Performed By: #### C BC, ADIFF, PRO, BMP, ANEU, GFR #### [place] [address] Electrolyte Balance 7.0 mEq/L Normal 4.0-15.0 [facility] ([place]) Comment on above: Performed By: #### C BC, ADIFF, PRO, BMP, ANEU, GFR #### [place] [id number] Globulin 2.7 G/dL Normal 1.5-3.8 [facility] ([place] Comment on above: Performed By: #### C BC, ADIFF, PRO, BMP, ANEU, GFR #### [place] [address] Glucose [Mass/Vol] 104 mg/dL Normal 70-110 [facility] ([place] Comment on above: Performed By: #### C BC, ADIFF, PRO, BMP, ANEU, GFR #### [address] [address] Potassium [Moles/Vol] 4.2 mmol/L Normal 3.5-5.0 [facility] ([place]) Comment on above: Result Comment: Spec imen slightly hemolyzed. Performed By: #### C BC, ADIFF, PRO, BMP, ANEU, GFR #### [place] [address] Sodium [Moles/Vol] 138 mmol/L Normal 136-145 [facility] ([place] Comment on above: Performed By: #### C BC, ADIFF, PRO, BMP, ANEU, GFR #### [place] [address] Total Protein 5.4 G/dL Low 5.7-8.2 [facility] ([place]) Comment on above: Result Comment: No te - New Reference Range in effect 20 Performed By: #### C BC, ADIFF, PRO, BMP, ANEU, GFR #### [place] [address] Urea nitrogen [Mass/Vol] 7.0 mg/dL Low 8.0-22.0 [facility] ([place]) Comment on above: Performed By: #### C BC, ADIFF, PRO, BMP, ANEU, GFR #### [place] [address] MGon 07-11-2023 Magnesium [Mass/Vol] 2.1 mg/dL Normal 1.6-2.4 [facility]ly [facility], 1928–1983 ([place] Comment on above: Performed By: #### C BC, ADIFF, PRO, BMP, ANEU, GFR #### [place] [id number] PHOSon 07-11-2023 Phosphate [Mass/Vol] 3.4 mg/dL Normal 2.4-5.1 [facility], [facility]–[place] ([place] Comment on above: Result Comment: No te - New Reference Range in effect 20 Performed By: #### C BC, ADIFF, PRO, BMP, ANEU, GFR #### [place] [id number] .Auto Diffon 07-10-2023 Basophil, Absolute 0.0 10 3/mcL Normal 0.0-0.3 [facility], [facility]–[place] ([place] Comment on above: Performed By: #### DAMIÁN OZUNAU #### [address] [address] Basophils/100 WBC (Bld) 0.3 % Normal 0.0-2.5 A [facility] ([place]) Comment on above: Performed By: #### JAY OZUNA #### [address] [address] Eosinophil, Absolute 0.3 10 3/mcL Normal 0.0-0.7 [facility] ([place]) Comment on above: Performed By: #### JAY OZUNA #### [address] [address] Eosinophils/100 WBC (Bld) 3.5 % Normal 0.0-6.0 [facility] ([place]) Comment on above: Performed By: #### JAY OZUNA #### [address] [address] Lymphocyte, Absolute 0.6 10 3/mcL Low 0.9-4.3 [facility] ([place]) Comment on above: Performed By: #### JAY OZUNA #### [address] [address] Lymphocytes/100 WBC (Bld) 6.8 % Low 20.0-40.0 [facility] ([place]) Comment on above: Performed By: #### JAY OZUNA #### [address] [address] Monocyte, Absolute 0.6 10 3/mcL Normal 0.1-1.4 [facility], [facility] ([place]) Comment on above: Performed By: #### JAY OZUNA #### [address] [address] Monocytes/100 WBC (Bld) 7.6 % Normal 2.0-13.0 A [facility] ([place]) Comment on above: Performed By: #### JAY OZUNA #### [address] [place], [place] [address] Neutrophils/100 WBC (Bld) 81.8 % High 50.0-75.0 [facility] ([place] Comment on above: Performed By: #### U OXYSDAMIÁNU #### [address] [address] .GFRon 07-10-2023 GFR >60 Normal [facility], [facility] ([place] Comment on above: Result Comment: GFR Population mean for , Non- Americans Ages 20-29 = 116 mL/min/1.73 sq.m. Ages 30-39 = 107 mL/min/1.73 sq.m. Ages 40-49 = 99 mL/min/1.73 sq.m. Ages 50-59 = 93 mL/min/1.73 sq.m. Ages 60-69 = 85 mL/min/1.73 sq.m. Ages 70+ = 75 mL/min/1.73 sq.m. Chronic Kidney Disease: Less than 60 mL/min/1.73 square meters End Stage Renal Disease: Less than 15 mL/min/1.73 square meters Performed By: #### U OXYSDAMIÁNU #### [address] [address] GFR Non- >60 Normal [facility] ([place] Comment on above: Result Comment: GFR Population mean for , Non- Americans Ages 20-29 = 116 mL/min/1.73 sq.m. Ages 30-39 = 107 mL/min/1.73 sq.m. Ages 40-49 = 99 mL/min/1.73 sq.m. Ages 50-59 = 93 mL/min/1.73 sq.m. Ages 60-69 = 85 mL/min/1.73 sq.m. Ages 70+ = 75 mL/min/1.73 sq.m. Chronic Kidney Disease: Less than 60 mL/min/1.73 square meters End Stage Renal Disease: Less than 15 mL/min/1.73 square meters Performed By: #### U OXYS, DRUGU #### [address] [address] .NEUABSon 07-10-2023 Neutrophil, Absolute 6.7 10 3/mcL Normal 2.3-8.1 [facility] ([place]) Comment on above: Performed By: #### JAY OZUNA #### [address] [address] CBCon 07-10-2023 Erythrocyte distribution width (RBC) [Ratio] 16.6 % High 11.5-15.5 [facility] ([place] Comment on above: Performed By: #### JAY OZUNA #### [place] [id number] Hematocrit (Bld) [Volume fraction] 35.0 % Normal 34.0-46.0 [facility] ([place] Comment on above: Performed By: #### JAY OZUNA #### [place] [id number] Hgb 10.4 G/dL Low 12.0-16.0 [facility] ([place] Comment on above: Performed By: #### JAY OZUNA #### [place] [id number] MCH (RBC) [Entitic mass] 29.8 pg Normal 27.0-33.0 [facility] ([place] Comment on above: Performed By: #### JAY OZUNA #### [place] [id number] MCHC 29.6 G/dL Low 32.0-36.0 [facility] ([place] Comment on above: Performed By: #### JAY OZUNA #### [place] [id number] MCV (RBC) [Entitic vol] 100.6 fL High 80.0-99.0 A [facility] ([place]) Comment on above: Performed By: #### JAY OZUNA #### [place] [id number] Platelet 220 10 3/mcL Normal 150-450 [facility] ([place] Comment on above: Performed By: #### JAY OZUNA #### [facility] [address] [place], [place] [address] Platelet mean volume (Bld) [Entitic vol] 6.8 fL Normal 6.6-10.5 [facility] ([place] Comment on above: Performed By: #### Rere CAMPBELL DRUGU #### [address] [address] RBC 3.48 10 6/mcL Low 4.10-5.30 [facility] ([place]) Comment on above: Performed By: #### DAMIÁN OZUNAU #### [address] [address] WBC 8.2 10 3/mcL Normal 4.5-10.8 [facility] ([place]) Comment on above: Performed By: #### DAMIÁN OZUNAU #### [address] [address] CMPon 07-10-2023 Albumin Level 3.1 G/dL Low 3.2-4.8 [facility] ([place]) Comment on above: Order Comment: Conta minated - nurse draw - notified Rocio Pantoja 07/10/2023 06:20:49 EDT Performed By: #### DAMIÁN OZUNAU #### [address] [address] Albumin/Globulin [Mass ratio] 1.1 {ratio} Normal 0.9-1.6 [facility] ([place] Comment on above: Order Comment: Conta minated - nurse draw - notified Rocio Pantoja 07/10/2023 06:20:49 EDT Performed By: #### DAMIÁN OZUNAU #### [address] [address] ALP [Catalytic activity/Vol] 95 U/L Normal 38-126 [facility] ([place] Comment on above: Order Comment: Conta minated - nurse draw - notified Rocio Pantoja 07/10/2023 06:20:49 EDT Performed By: #### U OXYYesenia, DRUGU #### [address] [address] ALT/SGPT <8 Low 10-49 [facility] ([place]) Comment on above: Order Comment: Conta minated - nurse draw - notified Rocio Pantoja 07/10/2023 06:20:49 EDT Performed By: #### U OXYS, DRUGU #### [address] [address] AST [Catalytic activity/Vol] 15 U/L Normal 8-34 [facility] ([place] Comment on above: Order Comment: Conta minated - nurse draw - notified Rocio Pantoja 07/10/2023 06:20:49 EDT Performed By: #### U OXYS, DRUGU #### [address] [address] Bili Total 0.30 mg/dL Normal 0.20-1.20 [facility] ([place] Comment on above: Order Comment: Conta minated - nurse draw - notified Rocio Hopedale 07/10/2023 06:20:49 EDT Result Comment: Use of this assay is not recommended for patients undergoing treatment with eltrombopag due to the potential for falsely elevated results. Performed By: #### U OXYS DRUGU #### [place] [id number] BUN/Creatinine Ratio 6.9 ratio Low 10.0-22.0 [facility] ([place] Comment on above: Order Comment: Conta minated - nurse draw - notified Rocio Hopedale 07/10/2023 06:20:49 EDT Performed By: #### U OXYYesenia DRUGU #### [address] [address] Calcium [Mass/Vol] 8.8 mg/dL Normal 8.7-10.4 [facility] ([place]) Comment on above: Order Comment: Conta minated - nurse draw - notified Rocio Hopedale 07/10/2023 06:20:49 EDT Performed By: #### U OXYS, DRUGU #### [address] [address] Chloride [Moles/Vol] 106 mmol/L Normal 98-110 [facility] ([place] Comment on above: Order Comment: Conta minated - nurse draw - notified Rocio Pantoja 07/10/2023 06:20:49 EDT Performed By: #### U OXYS, DRUGU #### [address] [address] CO2 [Moles/Vol] 20 mmol/L Low 22-32 [facility] ([place] Comment on above: Order Comment: Conta minated - nurse draw - notified Rocio Pantoja 07/10/2023 06:20:49 EDT Performed By: #### U OXYS, DRUGU #### [address] [address] Creatinine [Mass/Vol] 0.87 mg/dL Normal 0.50-1.20 [facility] ([place]) Comment on above: Order Comment: Conta minated - nurse draw - notified Rocio Pantoja 07/10/2023 06:20:49 EDT Performed By: #### U OXYS, DRUGU #### [address] [address] Electrolyte Balance 10.0 mEq/L Normal 4.0-15.0 [facility] ([place]) Comment on above: Order Comment: Conta minated - nurse draw - notified Rocio Pantoja 07/10/2023 06:20:49 EDT Performed By: #### U OXYS, DRUGU #### [address] [address] Globulin 2.8 G/dL Normal 1.5-3.8 [facility] ([place] Comment on above: Order Comment: Conta minated - nurse draw - notified Rocio Pantoja 07/10/2023 06:20:49 EDT Performed By: #### U OXYS, DRUGU #### [address] [address] Glucose [Mass/Vol] 95 mg/dL Normal 70-110 [facility] ([place]) Comment on above: Order Comment: Conta minated - nurse draw - notified Rocio Pantoja 07/10/2023 06:20:49 EDT Performed By: #### U OXYS, DRUGU #### [address] [address] Potassium [Moles/Vol] 4.0 mmol/L Normal 3.5-5.0 [facility] ([place]) Comment on above: Order Comment: Conta minated - nurse draw - notified Rocio Pantoja 07/10/2023 06:20:49 EDT Performed By: #### U OXYS, DRUGU #### [address] [address] Sodium [Moles/Vol] 136 mmol/L Normal 136-145 [facility] ([place]) Comment on above: Order Comment: Conta minated - nurse draw - notified Rocio Pantoja 07/10/2023 06:20:49 EDT Performed By: #### U OXYS, DRUGU #### [address] [address] Total Protein 5.9 G/dL Normal 5.7-8.2 [facility] ([place] Comment on above: Order Comment: Conta minated - nurse draw - notified Rocio Pantoja 07/10/2023 06:20:49 EDT Result Comment: No te - New Reference Range in effect 20 Performed By: #### U OXYS, DRUGU #### [address] [address] Urea nitrogen [Mass/Vol] 6.0 mg/dL Low 8.0-22.0 [facility] ([place] Comment on above: Order Comment: Conta minated - nurse draw - notified Rocio Pantoja 07/10/2023 06:20:49 EDT Performed By: #### U OXYS, DRUGU #### [address] [address] MGon 07-10-2023 Magnesium [Mass/Vol] 1.8 mg/dL Normal 1.6-2.4 [facility] ([place] Comment on above: Performed By: #### U OXYS, DRUGU #### [address] [address] PHOSon 07-10-2023 Phosphate [Mass/Vol] 3.2 mg/dL Normal 2.4-5.1 [facility] ([place] Comment on above: Result Comment: No te - New Reference Range in effect 20 Performed By: #### U OXYS DRUGU #### [address] [address] .Auto Diffon 07-09-2023 Basophil, Absolute 0.1 10 3/mcL Normal 0.0-0.3 [facility], [facility] ([place]) Comment on above: Performed By: #### C BC, ADIFF, PRO, BMP, ANEU, GFR #### [address] [address] Basophils/100 WBC (Bld) 1.2 % Normal 0.0-2.5 A [facility] ([place]) Comment on above: Performed By: #### C BC, ADIFF, PRO, BMP, ANEU, GFR #### [address] [address] Eosinophil, Absolute 0.3 10 3/mcL Normal 0.0-0.7 [facility] ([place]) Comment on above: Performed By: #### C BC, ADIFF, PRO, BMP, ANEU, GFR #### [address] [address] Eosinophils/100 WBC (Bld) 4.0 % Normal 0.0-6.0 [facility] ([place]) Comment on above: Performed By: #### C BC, ADIFF, PRO, BMP, ANEU, GFR #### [address] [address] Lymphocyte, Absolute 2.5 10 3/mcL Normal 0.9-4.3 [facility] ([place]) Comment on above: Performed By: #### C BC, ADIFF, PRO, BMP, ANEU, GFR #### [address] [address] Lymphocytes/100 WBC (Bld) 29.3 % Normal 20.0-40.0 [facility] ([place]) Comment on above: Performed By: #### C BC, ADIFF, PRO, BMP, ANEU, GFR #### [address] [address] Monocyte, Absolute 0.7 10 3/mcL Normal 0.1-1.4 [facility] ([place]) Comment on above: Performed By: #### C BC, ADIFF, PRO, BMP, ANEU, GFR #### [address] [address] Monocytes/100 WBC (Bld) 7.9 % Normal 2.0-13.0 A [facility] ([place]) Comment on above: Performed By: #### C BC, ADIFF, PRO, BMP, ANEU, GFR #### [address] [address] Neutrophils/100 WBC (Bld) 57.6 % Normal 50.0-75.0 [facility] ([place] Comment on above: Performed By: #### C BC, ADIFF, PRO, BMP, ANEU, GFR #### [address] [address] .GFRon 07-09-2023 GFR >60 Normal [facility] ([place] Comment on above: Result Comment: GFR Population mean for , Non- Americans Ages 20-29 = 116 mL/min/1.73 sq.m. Ages 30-39 = 107 mL/min/1.73 sq.m. Ages 40-49 = 99 mL/min/1.73 sq.m. Ages 50-59 = 93 mL/min/1.73 sq.m. Ages 60-69 = 85 mL/min/1.73 sq.m. Ages 70+ = 75 mL/min/1.73 sq.m. Chronic Kidney Disease: Less than 60 mL/min/1.73 square meters End Stage Renal Disease: Less than 15 mL/min/1.73 square meters Performed By: #### C BC, ADIFF, PRO, BMP, ANEU, GFR #### [address] [address] GFR Non- >60 Normal [facility] ([place] Comment on above: Result Comment: GFR Population mean for , Non- Americans Ages 20-29 = 116 mL/min/1.73 sq.m. Ages 30-39 = 107 mL/min/1.73 sq.m. Ages 40-49 = 99 mL/min/1.73 sq.m. Ages 50-59 = 93 mL/min/1.73 sq.m. Ages 60-69 = 85 mL/min/1.73 sq.m. Ages 70+ = 75 mL/min/1.73 sq.m. Chronic Kidney Disease: Less than 60 mL/min/1.73 square meters End Stage Renal Disease: Less than 15 mL/min/1.73 square meters Performed By: #### C BC, ADIFF, PRO, BMP, ANEU, GFR #### [address] [address] .MDWon 07-09-2023 Monocyte Distribution Width 15.99 Normal 0.00-20.00 [facility] ([place] Comment on above: Result Comment: For ED adult patients suspected of sepsis, MDW<=20.0 does not rule out sepsis or risk of sepsis Performed By: #### C BC, ADIFF, PRO, BMP, ANEU, GFR #### [place] [address] .NEUABSon 07-09-2023 Neutrophil, Absolute 4.9 10 3/mcL Normal 2.3-8.1 [facility] ([place]) Comment on above: Performed By: #### C BC, ADIFF, PRO, BMP, ANEU, GFR #### [place] [address] ABO/Rh (Gel)on 07-09-2023 ABO/Rh Interp Positive Invalid Interpretation Code [facility] ([place] Comment on above: Performed By: #### C BC, ADIFF, PRO, BMP, ANEU, GFR #### [place] [id number] ABS (Gel)on 07-09-2023 ABSC Interp (Gel) Negative Normal [facility] ([place] Comment on above: Performed By: #### C BC, ADIFF, PRO, BMP, ANEU, GFR #### [address] [address] CBCon 07-09-2023 Erythrocyte distribution width (RBC) [Ratio] 16.1 % High 11.5-15.5 [facility] ([place] Comment on above: Performed By: #### C BC, ADIFF, PRO, BMP, ANEU, GFR #### [place] [address] Hematocrit (Bld) [Volume fraction] 36.4 % Normal 34.0-46.0 [facility] ([place] Comment on above: Performed By: #### C BC, ADIFF, PRO, BMP, ANEU, GFR #### [place] [address] Hgb 12.0 G/dL Normal 12.0-16.0 [facility] ([place] Comment on above: Performed By: #### C BC, ADIFF, PRO, BMP, ANEU, GFR #### [place] [address] MCH (RBC) [Entitic mass] 29.8 pg Normal 27.0-33.0 [facility] ([place] Comment on above: Performed By: #### C BC, ADIFF, PRO, BMP, ANEU, GFR #### [place] [address] MCHC 33.0 G/dL Normal 32.0-36.0 [facility] ([place] Comment on above: Performed By: #### C BC, ADIFF, PRO, BMP, ANEU, GFR #### [place] [address] MCV (RBC) [Entitic vol] 90.3 fL Normal 80.0-99.0 A [facility] ([place]) Comment on above: Performed By: #### C BC, ADIFF, PRO, BMP, ANEU, GFR #### [place] [address] Platelet 344 10 3/mcL Normal 150-450 [facility] ([place] Comment on above: Performed By: #### C BC, ADIFF, PRO, BMP, ANEU, GFR #### [place] [address] Platelet mean volume (Bld) [Entitic vol] 6.9 fL Normal 6.6-10.5 [facility] ([place] Comment on above: Performed By: #### C BC, ADIFF, PRO, BMP, ANEU, GFR #### [place] [address] RBC 4.03 10 6/mcL Low 4.10-5.30 [facility] ([place] Comment on above: Performed By: #### C BC, ADIFF, PRO, BMP, ANEU, GFR #### [address] [address] WBC 8.5 10 3/mcL Normal 4.5-10.8 [facility] ([place] Comment on above: Performed By: #### C BC, ADIFF, PRO, BMP, ANEU, GFR #### [address] [address] CMPon 07-09-2023 Albumin Level 3.6 G/dL Normal 3.2-4.8 [facility] ([place] Comment on above: Performed By: #### C BC, ADIFF, PRO, BMP, ANEU, GFR #### [place] [id number] Albumin/Globulin [Mass ratio] 1.3 {ratio} Normal 0.9-1.6 [facility] ([place] Comment on above: Performed By: #### C BC, ADIFF, PRO, BMP, ANEU, GFR #### [address] [address] ALP [Catalytic activity/Vol] 87 U/L Normal 38-126 [facility] ([place] Comment on above: Performed By: #### C BC, ADIFF, PRO, BMP, ANEU, GFR #### [place] [address] ALT/SGPT <8 Low 10-49 [facility] ([place] Comment on above: Performed By: #### C BC, ADIFF, PRO, BMP, ANEU, GFR #### [address] [address] AST [Catalytic activity/Vol] 12 U/L Normal 8-34 [facility] ([place] Comment on above: Performed By: #### C BC, ADIFF, PRO, BMP, ANEU, GFR #### [address] [address] Bili Total 0.30 mg/dL Normal 0.20-1.20 [facility] ([place] Comment on above: Result Comment: Use of this assay is not recommended for patients undergoing treatment with eltrombopag due to the potential for falsely elevated results. Performed By: #### C BC, ADIFF, PRO, BMP, ANEU, GFR #### [place] [id number] BUN/Creatinine Ratio 9.3 ratio Low 10.0-22.0 [facility] ([place] Comment on above: Performed By: #### C BC, ADIFF, PRO, BMP, ANEU, GFR #### [address] [address] Calcium [Mass/Vol] 8.9 mg/dL Normal 8.7-10.4 [facility] ([place]) Comment on above: Performed By: #### C BC, ADIFF, PRO, BMP, ANEU, GFR #### [address] [address] Chloride [Moles/Vol] 108 mmol/L Normal 98-110 [facility] ([place] Comment on above: Performed By: #### C BC, ADIFF, PRO, BMP, ANEU, GFR #### [place] [id number] CO2 [Moles/Vol] 23 mmol/L Normal 22-32 [facility] ([place] Comment on above: Performed By: #### C BC, ADIFF, PRO, BMP, ANEU, GFR #### [place] [id number] Creatinine [Mass/Vol] 0.86 mg/dL Normal 0.50-1.20 [facility] ([place]) Comment on above: Performed By: #### C BC, ADIFF, PRO, BMP, ANEU, GFR #### [address] [address] Electrolyte Balance 8.0 mEq/L Normal 4.0-15.0 [facility] ([place]) Comment on above: Performed By: #### C BC, ADIFF, PRO, BMP, ANEU, GFR #### [address] [address] Globulin 2.8 G/dL Normal 1.5-3.8 [facility] ([place] Comment on above: Performed By: #### C BC, ADIFF, PRO, BMP, ANEU, GFR #### [address] [address] Glucose [Mass/Vol] 89 mg/dL Normal 70-110 [facility] ([place] Comment on above: Performed By: #### C BC, ADIFF, PRO, BMP, ANEU, GFR #### [address] [address] Potassium [Moles/Vol] 3.3 mmol/L Low 3.5-5.0 [facility] ([place]) Comment on above: Performed By: #### C BC, ADIFF, PRO, BMP, ANEU, GFR #### [address] [address] Sodium [Moles/Vol] 139 mmol/L Normal 136-145 [facility] ([place]) Comment on above: Performed By: #### C BC, ADIFF, PRO, BMP, ANEU, GFR #### [place] [id number] Total Protein 6.4 G/dL Normal 5.7-8.2 [facility] ([place] Comment on above: Result Comment: No te - New Reference Range in effect 20 Performed By: #### C BC, ADIFF, PRO, BMP, ANEU, GFR #### [address] [address] Urea nitrogen [Mass/Vol] 8.0 mg/dL Normal 8.0-22.0 [facility] ([place] Comment on above: Performed By: #### C BC, ADIFF, PRO, BMP, ANEU, GFR #### [address] [address] LABORATORYOrdered By: Emi Dalton on 07-09-2023 Appearance (U) Turbid *ABN* (07/09/23 8:46 PM) Invalid Interpretation Code Clear AH Auto Urine SS Bacteria LM.HPF (Urine sed) [#/Area] 2 /[HPF] Invalid Interpretation Code Negative AH Auto Urine SS Bilirubin Ql (U) Negative (07/09/23 8:46 PM) Invalid Interpretation Code Neg-Trace AH Auto Urine SS Color (U) Red *ABN* (07/09/23 8:46 PM) Invalid Interpretation Code AH Auto Urine SS Glucose Test strip (U) [Mass/Vol] Negative Invalid Interpretation Code Negative AH Auto Urine SS Hemoglobin Auto test strip (U) [Mass/Vol] Large *ABN* (07/09/23 8:46 PM) Invalid Interpretation Code Neg-Trace AH Auto Urine SS Ketones Ql (U) Negative Invalid Interpretation Code Neg-Trace AH Auto Urine SS UA Leuk Est Large *ABN* (07/09/23 8:46 PM) Invalid Interpretation Code Negative AH Auto Urine SS UA Mucous 2+ /HPF Invalid Interpretation Code AH Auto Urine SS UA Nitrite Negative (07/09/23 8:46 PM) Invalid Interpretation Code Negative AH Auto Urine SS UA pH 6.5 (07/09/23 8:46 PM) Invalid Interpretation Code 5.0 - 8.0 AH Auto Urine SS UA Protein >=1000 mg/dL Invalid Interpretation Code Negative AH Auto Urine SS UA RBC LOADED /HPF Invalid Interpretation Code 0-2 AH Auto Urine SS UA Spec Grav 1.025 (07/09/23 8:46 PM) Invalid Interpretation Code 1.006-1.029 AH Auto Urine SS UA Specimen Type Catheter (07/09/23 8:46 PM) Invalid Interpretation Code AH Auto Urine SS UA Squam Epithelial 5-10 /HPF Invalid Interpretation Code 0-20 AH Auto Urine SS UA Urobilinogen 1.0 E.U./dL Invalid Interpretation Code 0.2-1.0 AH Auto Urine SS WBC LM.HPF (Urine sed) [#/Area] 10-20 /HPF Invalid Interpretation Code 0-5 AH Auto Urine SS LABORATORYOrdered By: Dustin Hawkins on 07-09-2023 ABO and Rh group Nom (Bld) Blood group A Rh(D) positive Invalid Interpretation Code AH BB Auto SS Blood group antibody screen Ql Negative ABSC (07/09/23 10:21 AM) Invalid Interpretation Code AH BB Auto SS LABORATORYOrdered By: Alicia Gardiner on 07-09-2023 Appearance (U) Cloudy *ABN* (07/09/23 3:52 AM) Invalid Interpretation Code Clear AH Auto Urine SS Bilirubin Ql (U) Negative (07/09/23 3:52 AM) Invalid Interpretation Code Neg-Trace AH Auto Urine SS Color (U) Yellow (07/09/23 3:52 AM) Invalid Interpretation Code AH Auto Urine SS Glucose Test strip (U) [Mass/Vol] Negative Invalid Interpretation Code Negative AH Auto Urine SS Hemoglobin Auto test strip (U) [Mass/Vol] Moderate *ABN* (07/09/23 3:52 AM) Invalid Interpretation Code Neg-Trace AH Auto Urine SS Ketones Ql (U) Trace mg/dL Invalid Interpretation Code Neg-Trace AH Auto Urine SS RBC.non-dysmorphic LM Ql (Urine sed) 3-5 /HPF Invalid Interpretation Code AH Auto Urine SS UA Leuk Est Moderate *ABN* (07/09/23 3:52 AM) Invalid Interpretation Code Negative AH Auto Urine SS UA Mucous 1+ /HPF Invalid Interpretation Code AH Auto Urine SS UA Nitrite Negative (07/09/23 3:52 AM) Invalid Interpretation Code Negative AH Auto Urine SS UA pH 6.5 (07/09/23 3:52 AM) Invalid Interpretation Code 5.0 - 8.0 AH Auto Urine SS UA Protein 100 mg/dL Invalid Interpretation Code Negative AH Auto Urine SS UA RBC 5-10 /HPF Invalid Interpretation Code 0-2 AH Auto Urine SS UA Spec Grav 1.020 (07/09/23 3:52 AM) Invalid Interpretation Code 1.006-1.029 AH Auto Urine SS UA Specimen Type Catheter (07/09/23 3:52 AM) Invalid Interpretation Code AH Auto Urine SS UA Squam Epithelial 5-10 /HPF Invalid Interpretation Code 0-20 AH Auto Urine SS UA Urobilinogen 0.2 E.U./dL Invalid Interpretation Code 0.2-1.0 AH Auto Urine SS WBC LM.HPF (Urine sed) [#/Area] 25-50 /HPF Invalid Interpretation Code 0-5 AH Auto Urine SS LABORATORYOrdered By: SYSTEM SYSTEM on 07-09-2023 Monocyte distribution width Auto (Bld) [Entitic vol] 15.99 1 Invalid Interpretation Code 0.00 - 20.00 AH Workflow SS Comment on above: Result Comment: For ED adult patients suspected of sepsis, MDW<=20.0 does not rule out sepsis or risk of sepsis Laboratory - Microbiology an d Antimicrobial susceptibilityOrdered By: ANGPROCESSSERVER MICROBIOLOGY on 07-09-2023 Bacteria identified Cx Nom (Bld) Culture has been received in lab and is no growth to date. Culture will be held for four weeks. [facility] [facility] Magnesium [Mass/Vol] 2.0 mg/dL Normal 1.6-2.4 Formerly [facility], 1928–[place] ([place]) Comment on above: Performed By: #### C BC, ADIFF, PRO, BMP, ANEU, GFR #### [address] [address] No Panel Informationon 07-09 Culture Urine 10,000 - 50,000 cfu/ ml Multiple bacterial morphotypes present. Probable Contamination. Suggest recollection if clinically indicated. [facility] Work Phone: Culture Urine 10,000 - 50,000 cfu/ ml Multiple bacterial morphotypes present. Probable Contamination. Suggest recollection if clinically indicated. [facility] Work Phone: PHOSon 07-09-2023 Phosphate [Mass/Vol] 3.4 mg/dL Normal 2.4-5.1 Formerly [facility], 1928–[place] ([place]) Comment on above: Result Comment: No te - New Reference Range in effect 20 Performed By: #### C BC, ADIFF, PRO, BMP, ANEU, GFR #### [address] [address] UAon 07-09-2023 Color (U) Red Abnormal [facility] ([place]) Comment on above: Performed By: #### C BC, ADIFF, PRO, BMP, ANEU, GFR #### [address] [address] Glucose (U) [Mass/Vol] Negative Normal Negative [facility] ([place]) Comment on above: Performed By: #### C BC, ADIFF, PRO, BMP, ANEU, GFR #### [address] [address] Ketones Ql (U) Negative Normal Neg-Trace [facility] ([place]) Comment on above: Performed By: #### C BC, ADIFF, PRO, BMP, ANEU, GFR #### [address] [address] UA Appear Turbid Abnormal Clear [facility] ([place] Comment on above: Performed By: #### C BC, ADIFF, PRO, BMP, ANEU, GFR #### [address] [address] UA Blood Large Abnormal Neg-Trace [facility] ([place] Comment on above: Performed By: #### C BC, ADIFF, PRO, BMP, ANEU, GFR #### [address] [address] UA Leuk Est Large Abnormal Negative [facility] ([place] Comment on above: Performed By: #### C BC, ADIFF, PRO, BMP, ANEU, GFR #### [address] [address] UA Nitrite Negative Normal Negative [facility] ([place] Comment on above: Performed By: #### C BC, ADIFF, PRO, BMP, ANEU, GFR #### [place] [address] UA pH 6.5 Normal 5.0 - 8.0 [facility] ([place] Comment on above: Performed By: #### C BC, ADIFF, PRO, BMP, ANEU, GFR #### [place] [address] UA Protein >=1000 Abnormal Negative [facility] ([place] Comment on above: Performed By: #### C BC, ADIFF, PRO, BMP, ANEU, GFR #### [place] [address] UA Spec Grav 1.025 Normal 1.006-1.029 [facility] ([place] Comment on above: Performed By: #### C BC, ADIFF, PRO, BMP, ANEU, GFR #### [place] [address] UA Specimen Type Catheter Normal [facility] ([place] Comment on above: Performed By: #### C BC, ADIFF, PRO, BMP, ANEU, GFR #### [place] [address] UA Urobilinogen 1.0 E.U./dL Normal 0.2-1.0 [facility] ([place] Comment on above: Performed By: #### C BC, ADIFF, PRO, BMP, ANEU, GFR #### [place] [address] Urobilinogen (U) [Mass/Vol] Negative Normal Neg-Trace [facility] ([place] Comment on above: Performed By: #### C BC, ADIFF, PRO, BMP, ANEU, GFR #### [address] [address] Color (U) Yellow Normal [facility] ([place] Comment on above: Performed By: #### C BC, ADIFF, PRO, BMP, ANEU, GFR #### [place] [id number] Glucose (U) [Mass/Vol] Negative Normal Negative [facility] ([place]) Comment on above: Performed By: #### C BC, ADIFF, PRO, BMP, ANEU, GFR #### [place] [id number] Ketones Ql (U) Trace Normal Neg-Trace [facility] ([place] Comment on above: Performed By: #### C BC, ADIFF, PRO, BMP, ANEU, GFR #### [place] [id number] UA Appear Cloudy Abnormal Clear [facility] ([place] Comment on above: Performed By: #### C BC, ADIFF, PRO, BMP, ANEU, GFR #### [address] [address] UA Blood Moderate Abnormal Neg-Trace [facility] ([place] Comment on above: Performed By: #### C BC, ADIFF, PRO, BMP, ANEU, GFR #### [place] [id number] UA Leuk Est Moderate Abnormal Negative [facility] ([place] Comment on above: Performed By: #### C BC, ADIFF, PRO, BMP, ANEU, GFR #### [address] [address] UA Nitrite Negative Normal Negative [facility] ([place] Comment on above: Performed By: #### C BC, ADIFF, PRO, BMP, ANEU, GFR #### [place] [id number] UA pH 6.5 Normal 5.0 - 8.0 [facility] ([place] Comment on above: Performed By: #### C BC, ADIFF, PRO, BMP, ANEU, GFR #### [address] [address] UA Protein 100 mg/dL Abnormal Negative [facility] ([place] Comment on above: Performed By: #### C BC, ADIFF, PRO, BMP, ANEU, GFR #### [address] [address] UA Spec Grav 1.020 Normal 1.006-1.029 [facility] ([place] Comment on above: Performed By: #### C BC, ADIFF, PRO, BMP, ANEU, GFR #### [address] [address] UA Specimen Type Catheter Normal [facility] ([place] Comment on above: Performed By: #### C BC, ADIFF, PRO, BMP, ANEU, GFR #### [address] [address] UA Urobilinogen 0.2 E.U./dL Normal 0.2-1.0 [facility] ([place] Comment on above: Performed By: #### C BC, ADIFF, PRO, BMP, ANEU, GFR #### [address] [address] Urobilinogen (U) [Mass/Vol] Negative Normal Neg-Trace [facility] ([place] Comment on above: Performed By: #### C BC, ADIFF, PRO, BMP, ANEU, GFR #### [address] [address] UAMICon 07-09-2023 UA Bacteria 2+ /hpf Abnormal Negative [facility] ([place] Comment on above: Performed By: #### C BC, ADIFF, PRO, BMP, ANEU, GFR #### [address] [address] UA Mucous 2+ /hpf Normal [facility] ([place] Comment on above: Performed By: #### C BC, ADIFF, PRO, BMP, ANEU, GFR #### [address] [address] UA RBC LOADED Abnormal 0-2 [facility] ([place] Comment on above: Performed By: #### C BC, ADIFF, PRO, BMP, ANEU, GFR #### [address] [address] UA Squam Epithelial 5-10 Normal 0-20 [facility] ([place]) Comment on above: Performed By: #### C BC, ADIFF, PRO, BMP, ANEU, GFR #### [address] [address] UA WBC 10-20 Abnormal 0-5 [facility] ([place] Comment on above: Performed By: #### C BC, ADIFF, PRO, BMP, ANEU, GFR #### [address] [address] UA Crenated RBCs 3-5 Abnormal [facility] ([place] Comment on above: Performed By: #### C BC, ADIFF, PRO, BMP, ANEU, GFR #### [address] [address] UA Mucous 1+ /hpf Normal [facility] ([place] Comment on above: Performed By: #### C BC, ADIFF, PRO, BMP, ANEU, GFR #### [address] [address] UA RBC 5-10 Abnormal 0-2 [facility] ([place] Comment on above: Performed By: #### C BC, ADIFF, PRO, BMP, ANEU, GFR #### [address] [address] UA Squam Epithelial 5-10 Normal 0-20 [facility] ([place] Comment on above: Performed By: #### C BC, ADIFF, PRO, BMP, ANEU, GFR #### [address] [address] UA WBC 25-50 Abnormal 0-5 [facility] ([place] Comment on above: Performed By: #### C BC, ADIFF, PRO, BMP, ANEU, GFR #### [address] [address] LABORATORYOrdered By: SYSTEM SYSTEM on 05-07-2023 Albumin BCP dye [Mass/Vol] 3.0 G/dL Invalid Interpretation Code 3.2 - 4.8 G/dL ADM SS Albumin/Globulin [Mass ratio] 1.2 {ratio} Invalid Interpretation Code 0.9 - 1.6 ratio ADM SS ALP [Catalytic activity/Vol] 93 U/L Invalid Interpretation Code 38 - 126 U/L ADM SS ALT No additional P-5'-P [Catalytic activity/Vol] 16 U/L Invalid Interpretation Code 10 - 49 U/L ADM SS AST [Catalytic activity/Vol] 23 U/L Invalid Interpretation Code 8 - 34 U/L ADM SS Basophils (Bld) [#/Vol] 0.1 103/mcL Invalid Interpretation Code 0.0 - 0.3 10^3/mcL Workflow SS Basophils/100 WBC (Bld) 1.3 % Invalid Interpretation Code 0.0 - 2.5 % Workflow SS Bilirubin [Mass/Vol] 0.20 mg/dL Invalid Interpretation Code 0.20 - 1.20 mg/dL ADM SS Calcium [Mass/Vol] 9.1 mg/dL Invalid Interpretation Code 8.7 - 10.4 mg/dL ADM SS Chloride [Moles/Vol] 107 mmol/L Invalid Interpretation Code 98 - 110 mEq/L ADM SS CO2 [Moles/Vol] 28 mmol/L Invalid Interpretation Code 22 - 32 mEq/L ADM SS Creatinine [Mass/Vol] 0.96 mg/dL Invalid Interpretation Code 0.50 - 1.20 mg/dL ADM SS Electrolyte Balance 3.0 mEq/L Invalid Interpretation Code 4.0 - 15.0 mEq/L ADM SS Eosinophils (Bld) [#/Vol] 0.5 103/mcL Invalid Interpretation Code 0.0 - 0.7 10^3/mcL Workflow SS Eosinophils/100 WBC (Bld) 7.7 % Invalid Interpretation Code 0.0 - 6.0 % Workflow SS Erythrocyte distribution width (RBC) [Ratio] 15.7 % Invalid Interpretation Code 11.5 - 15.5 % Workflow SS GFR/1.73 sq M.predicted among blacks MDRD (S/P/Bld) [Vol rate/Area] ml/min/1.73sqm Invalid Interpretation Code Chemistry S GFR/1.73 sq M.predicted among non-blacks MDRD (S/P/Bld) [Vol rate/Area] ml/min/1.73sqm Invalid Interpretation Code Chemistry S Globulin 2.6 G/dL Invalid Interpretation Code 1.5 - 3.8 G/dL ADM SS Glucose [Mass/Vol] 97 mg/dL Invalid Interpretation Code 70 - 110 mg/dL ADM SS Hematocrit (Bld) [Volume fraction] 34.7 % Invalid Interpretation Code 34.0 - 46.0 % Workflow SS Hemoglobin (Bld) [Mass/Vol] 11.3 G/dL Invalid Interpretation Code 12.0 - 16.0 G/dL Workflow SS Lymphocytes (Bld) [#/Vol] 1.9 103/mcL Invalid Interpretation Code 0.9 - 4.3 10^3/mcL Workflow SS Lymphocytes/100 WBC (Bld) 27.3 % Invalid Interpretation Code 20.0 - 40.0 % Workflow SS Magnesium [Mass/Vol] 1.8 mg/dL Invalid Interpretation Code 1.6 - 2.4 mg/dL ADM SS MCH (RBC) [Entitic mass] 30.0 pg Invalid Interpretation Code 27.0 - 33.0 pg Workflow SS MCHC 32.7 G/dL Invalid Interpretation Code 32.0 - 36.0 G/dL Workflow SS MCV (RBC) [Entitic vol] 91.9 fL Invalid Interpretation Code 80.0 - 99.0 fL Workflow SS Monocytes (Bld) [#/Vol] 1.1 103/mcL Invalid Interpretation Code 0.1 - 1.4 10^3/mcL Workflow SS Monocytes/100 WBC (Bld) 15.5 % Invalid Interpretation Code 2.0 - 13.0 % Workflow SS Neutrophils (Bld) [#/Vol] 3.3 103/mcL Invalid Interpretation Code 2.3 - 8.1 10^3/mcL Workflow SS Neutrophils/100 WBC (Bld) 48.2 % Invalid Interpretation Code 50.0 - 75.0 % Workflow SS Phosphate [Mass/Vol] 5.3 mg/dL Invalid Interpretation Code 2.4 - 5.1 mg/dL ADM SS Platelet mean volume (Bld) [Entitic vol] 7.0 fL Invalid Interpretation Code 6.6 - 10.5 fL Workflow SS Platelets (Bld) [#/Vol] 364 103/mcL Invalid Interpretation Code 150 - 450 10^3/mcL Workflow SS Potassium [Moles/Vol] 4.1 mmol/L Invalid Interpretation Code 3.5 - 5.0 mEq/L AH ADM SS Protein [Mass/Vol] 5.6 G/dL Invalid Interpretation Code 5.7 - 8.2 G/dL AH ADM SS RBC (Bld) [#/Vol] 3.77 106/mcL Invalid Interpretation Code 4.10 - 5.30 10^6/mcL AH Workflow SS Sodium [Moles/Vol] 138 mmol/L Invalid Interpretation Code 136 - 145 mEq/L AH ADM SS Urea nitrogen [Mass/Vol] 15.0 mg/dL Invalid Interpretation Code 8.0 - 22.0 mg/dL ADM SS Urea nitrogen/Creatinine [Mass ratio] 15.6 ratio Invalid Interpretation Code 10.0 - 22.0 ratio AH ADM SS WBC (Bld) [#/Vol] 6.9 103/mcL Invalid Interpretation Code 4.5 - 10.8 10^3/mcL Workflow SS LABORATORYOrdered By: SYSTEM SYSTEM on 05-06-2023 Albumin BCP dye [Mass/Vol] 3.0 G/dL Invalid Interpretation Code 3.2 - 4.8 G/dL ADM SS ALP [Catalytic activity/Vol] 94 U/L Invalid Interpretation Code 38 - 126 U/L ADM SS ALT No additional P-5'-P [Catalytic activity/Vol] 11 U/L Invalid Interpretation Code 10 - 49 U/L AH ADM SS AST [Catalytic activity/Vol] 18 U/L Invalid Interpretation Code 8 - 34 U/L ADM SS Basophils (Bld) [#/Vol] 0.1 103/mcL Invalid Interpretation Code 0.0 - 0.3 10^3/mcL AH Workflow SS Basophils/100 WBC (Bld) 1.1 % Invalid Interpretation Code 0.0 - 2.5 % Workflow SS Bilirubin [Mass/Vol] 0.20 mg/dL Invalid Interpretation Code 0.20 - 1.20 mg/dL ADM SS Calcium [Mass/Vol] 9.0 mg/dL Invalid Interpretation Code 8.7 - 10.4 mg/dL AH ADM SS Chloride [Moles/Vol] 105 mmol/L Invalid Interpretation Code 98 - 110 mEq/L ADM SS CO2 [Moles/Vol] 27 mmol/L Invalid Interpretation Code 22 - 32 mEq/L ADM SS Creatinine [Mass/Vol] 0.81 mg/dL Invalid Interpretation Code 0.50 - 1.20 mg/dL AH ADM SS Electrolyte Balance 7.0 mEq/L Invalid Interpretation Code 4.0 - 15.0 mEq/L ADM SS Eosinophils (Bld) [#/Vol] 0.5 103/mcL Invalid Interpretation Code 0.0 - 0.7 10^3/mcL AH Workflow SS Eosinophils/100 WBC (Bld) 8.3 % Invalid Interpretation Code 0.0 - 6.0 % AH Workflow SS Erythrocyte distribution width (RBC) [Ratio] 15.7 % Invalid Interpretation Code 11.5 - 15.5 % AH Workflow SS GFR/1.73 sq M.predicted among blacks MDRD (S/P/Bld) [Vol rate/Area] ml/min/1.73sqm Invalid Interpretation Code Chemistry S GFR/1.73 sq M.predicted among non-blacks MDRD (S/P/Bld) [Vol rate/Area] ml/min/1.73sqm Invalid Interpretation Code Chemistry S Glucose [Mass/Vol] 115 mg/dL Invalid Interpretation Code 70 - 110 mg/dL ADM SS Hematocrit (Bld) [Volume fraction] 35.8 % Invalid Interpretation Code 34.0 - 46.0 % AH Workflow SS Hemoglobin (Bld) [Mass/Vol] 11.7 G/dL Invalid Interpretation Code 12.0 - 16.0 G/dL AH Workflow SS Lymphocytes (Bld) [#/Vol] 1.8 103/mcL Invalid Interpretation Code 0.9 - 4.3 10^3/mcL AH Workflow SS Lymphocytes/100 WBC (Bld) 32.6 % Invalid Interpretation Code 20.0 - 40.0 % AH Workflow SS Magnesium [Mass/Vol] 1.7 mg/dL Invalid Interpretation Code 1.6 - 2.4 mg/dL ADM SS MCH (RBC) [Entitic mass] 30.1 pg Invalid Interpretation Code 27.0 - 33.0 pg AH Workflow SS MCHC 32.8 G/dL Invalid Interpretation Code 32.0 - 36.0 G/dL AH Workflow SS MCV (RBC) [Entitic vol] 91.8 fL Invalid Interpretation Code 80.0 - 99.0 fL Workflow SS Monocytes (Bld) [#/Vol] 0.9 103/mcL Invalid Interpretation Code 0.1 - 1.4 10^3/mcL AH Workflow SS Monocytes/100 WBC (Bld) 16.5 % Invalid Interpretation Code 2.0 - 13.0 % AH Workflow SS Neutrophils (Bld) [#/Vol] 2.3 103/mcL Invalid Interpretation Code 2.3 - 8.1 10^3/mcL Workflow SS Neutrophils/100 WBC (Bld) 41.5 % Invalid Interpretation Code 50.0 - 75.0 % Workflow SS Phosphate [Mass/Vol] 4.9 mg/dL Invalid Interpretation Code 2.4 - 5.1 mg/dL ADM SS Platelet mean volume (Bld) [Entitic vol] 7.0 fL Invalid Interpretation Code 6.6 - 10.5 fL Workflow SS Platelets (Bld) [#/Vol] 389 103/mcL Invalid Interpretation Code 150 - 450 10^3/mcL Workflow SS Potassium [Moles/Vol] 4.0 mmol/L Invalid Interpretation Code 3.5 - 5.0 mEq/L ADM SS Protein [Mass/Vol] 5.6 G/dL Invalid Interpretation Code 5.7 - 8.2 G/dL ADM SS RBC (Bld) [#/Vol] 3.90 106/mcL Invalid Interpretation Code 4.10 - 5.30 10^6/mcL Workflow SS Sodium [Moles/Vol] 139 mmol/L Invalid Interpretation Code 136 - 145 mEq/L ADM SS Urea nitrogen [Mass/Vol] 14.0 mg/dL Invalid Interpretation Code 8.0 - 22.0 mg/dL ADM SS Urea nitrogen/Creatinine [Mass ratio] 17.3 ratio Invalid Interpretation Code 10.0 - 22.0 ratio ADM SS WBC (Bld) [#/Vol] 5.5 103/mcL Invalid Interpretation Code 4.5 - 10.8 10^3/mcL Workflow SS LABORATORYOrdered By: Katerin Marvin on 05-06-2023 Albumin/Globulin [Mass ratio] 1.2 {ratio} Invalid Interpretation Code 0.9 - 1.6 ratio Chemistry S Globulin 2.6 G/dL Invalid Interpretation Code 1.5 - 3.8 G/dL Chemistry S LABORATORYOrdered By: SYSTEM SYSTEM on 05-05-2023 CK [Catalytic activity/Vol] 54 U/L Invalid Interpretation Code 7 - 185 U/L ADM SS Albumin BCP dye [Mass/Vol] 3.2 G/dL Invalid Interpretation Code 3.2 - 4.8 G/dL ADM SS Albumin/Globulin [Mass ratio] 0.9 {ratio} Invalid Interpretation Code 0.9 - 1.6 ratio ADM SS ALP [Catalytic activity/Vol] 98 U/L Invalid Interpretation Code 38 - 126 U/L ADM SS ALT No additional P-5'-P [Catalytic activity/Vol] 14 U/L Invalid Interpretation Code 10 - 49 U/L ADM SS AST [Catalytic activity/Vol] 25 U/L Invalid Interpretation Code 8 - 34 U/L ADM SS Basophils (Bld) [#/Vol] 0.0 103/mcL Invalid Interpretation Code 0.0 - 0.3 10^3/mcL Workflow SS Basophils/100 WBC (Bld) 0.7 % Invalid Interpretation Code 0.0 - 2.5 % Workflow SS Bilirubin [Mass/Vol] 0.20 mg/dL Invalid Interpretation Code 0.20 - 1.20 mg/dL ADM SS Calcium [Mass/Vol] 9.3 mg/dL Invalid Interpretation Code 8.7 - 10.4 mg/dL ADM SS Chloride [Moles/Vol] 103 mmol/L Invalid Interpretation Code 98 - 110 mEq/L ADM SS CO2 [Moles/Vol] 29 mmol/L Invalid Interpretation Code 22 - 32 mEq/L ADM SS Creatinine [Mass/Vol] 0.77 mg/dL Invalid Interpretation Code 0.50 - 1.20 mg/dL ADM SS Electrolyte Balance 6.0 mEq/L Invalid Interpretation Code 4.0 - 15.0 mEq/L ADM SS Eosinophils (Bld) [#/Vol] 0.5 103/mcL Invalid Interpretation Code 0.0 - 0.7 10^3/mcL Workflow SS Eosinophils/100 WBC (Bld) 8.8 % Invalid Interpretation Code 0.0 - 6.0 % Workflow SS Erythrocyte distribution width (RBC) [Ratio] 15.9 % Invalid Interpretation Code 11.5 - 15.5 % Workflow SS GFR/1.73 sq M.predicted among blacks MDRD (S/P/Bld) [Vol rate/Area] ml/min/1.73sqm Invalid Interpretation Code Chemistry S GFR/1.73 sq M.predicted among non-blacks MDRD (S/P/Bld) [Vol rate/Area] ml/min/1.73sqm Invalid Interpretation Code Chemistry S Globulin 3.5 G/dL Invalid Interpretation Code 1.5 - 3.8 G/dL ADM SS Glucose [Mass/Vol] 119 mg/dL Invalid Interpretation Code 70 - 110 mg/dL ADM SS Hematocrit (Bld) [Volume fraction] 39.1 % Invalid Interpretation Code 34.0 - 46.0 % Workflow SS Hemoglobin (Bld) [Mass/Vol] 12.8 G/dL Invalid Interpretation Code 12.0 - 16.0 G/dL Workflow SS Lymphocytes (Bld) [#/Vol] 1.9 103/mcL Invalid Interpretation Code 0.9 - 4.3 10^3/mcL Workflow SS Lymphocytes/100 WBC (Bld) 34.6 % Invalid Interpretation Code 20.0 - 40.0 % Workflow SS Magnesium [Mass/Vol] 1.9 mg/dL Invalid Interpretation Code 1.6 - 2.4 mg/dL ADM SS MCH (RBC) [Entitic mass] 30.0 pg Invalid Interpretation Code 27.0 - 33.0 pg Workflow SS MCHC 32.7 G/dL Invalid Interpretation Code 32.0 - 36.0 G/dL Workflow SS MCV (RBC) [Entitic vol] 91.9 fL Invalid Interpretation Code 80.0 - 99.0 fL Workflow SS Monocytes (Bld) [#/Vol] 0.9 103/mcL Invalid Interpretation Code 0.1 - 1.4 10^3/mcL Workflow SS Monocytes/100 WBC (Bld) 15.8 % Invalid Interpretation Code 2.0 - 13.0 % Workflow SS Neutrophils (Bld) [#/Vol] 2.2 103/mcL Invalid Interpretation Code 2.3 - 8.1 10^3/mcL Workflow SS Neutrophils/100 WBC (Bld) 40.1 % Invalid Interpretation Code 50.0 - 75.0 % Workflow SS Phosphate [Mass/Vol] 4.4 mg/dL Invalid Interpretation Code 2.4 - 5.1 mg/dL ADM SS Platelet mean volume (Bld) [Entitic vol] 6.8 fL Invalid Interpretation Code 6.6 - 10.5 fL Workflow SS Platelets (Bld) [#/Vol] 412 103/mcL Invalid Interpretation Code 150 - 450 10^3/mcL Workflow SS Potassium [Moles/Vol] 4.0 mmol/L Invalid Interpretation Code 3.5 - 5.0 mEq/L ADM SS Protein [Mass/Vol] 6.7 G/dL Invalid Interpretation Code 5.7 - 8.2 G/dL AH ADM SS RBC (Bld) [#/Vol] 4.26 106/mcL Invalid Interpretation Code 4.10 - 5.30 10^6/mcL AH Workflow SS Sodium [Moles/Vol] 138 mmol/L Invalid Interpretation Code 136 - 145 mEq/L AH ADM SS Urea nitrogen [Mass/Vol] 12.0 mg/dL Invalid Interpretation Code 8.0 - 22.0 mg/dL AH ADM SS Urea nitrogen/Creatinine [Mass ratio] 15.6 ratio Invalid Interpretation Code 10.0 - 22.0 ratio AH ADM SS Vancomycin trough [Mass/Vol] 22.3 ug/mL Invalid Interpretation Code 5.0 - 20.0 mcg/mL AH ADM SS Comment on above: Result Comment: ..re ad back by Gail Saldana Pharmacist at 05/05/2023 01:00:00 EDT WBC (Bld) [#/Vol] 5.6 103/mcL Invalid Interpretation Code 4.5 - 10.8 10^3/mcL AH Workflow SS LABORATORYOrdered By: Darien Pruett on 05-05-2023 LDose Vancomycin:(trough) See eMAR (05/05/23 12:19 AM) Invalid Interpretation Code Chemistry S LABORATORYOrdered By: Gabriela Gabriel on 05-02-2023 Appearance (U) Hazy *ABN* (05/02/23 6:22 AM) Invalid Interpretation Code Clear AH Auto Urine SS Bacteria LM.HPF (Urine sed) [#/Area] 2 /[HPF] Invalid Interpretation Code Negative/HP F AH Auto Urine SS Bilirubin Ql (U) Negative (05/02/23 6:22 AM) Invalid Interpretation Code Neg-Trace AH Auto Urine SS Color (U) Yellow (05/02/23 6:22 AM) Invalid Interpretation Code AH Auto Urine SS Glucose Test strip (U) [Mass/Vol] Negative Invalid Interpretation Code Negativemg/ dL AH Auto Urine SS Hemoglobin Auto test strip (U) [Mass/Vol] Trace (05/02/23 6:22 AM) Invalid Interpretation Code Neg-Trace AH Auto Urine SS Ketones Ql (U) Trace mg/dL Invalid Interpretation Code Neg-Tracemg /dL AH Auto Urine SS RBC.non-dysmorphic LM Ql (Urine sed) 3-5 /HPF Invalid Interpretation Code AH Auto Urine SS UA Leuk Est Moderate *ABN* (05/02/23 6:22 AM) Invalid Interpretation Code Negative AH Auto Urine SS UA Mucous Trace /HPF Invalid Interpretation Code AH Auto Urine SS UA Nitrite Negative (05/02/23 6:22 AM) Invalid Interpretation Code Negative AH Auto Urine SS UA pH 7.0 (05/02/23 6:22 AM) Invalid Interpretation Code 5.0 - 8.0 AH Auto Urine SS UA Protein 30 mg/dL Invalid Interpretation Code Negativemg/ dL AH Auto Urine SS UA RBC Negative Invalid Interpretation Code 0-2/HPF AH Auto Urine SS UA Spec Grav 1.015 (05/02/23 6:22 AM) Invalid Interpretation Code 1.006-1.029 AH Auto Urine SS UA Specimen Type Catheter (05/02/23 6:22 AM) Invalid Interpretation Code Auto Urine SS UA Squam Epithelial 3-5 /HPF Invalid Interpretation Code 0-20/HPF Auto Urine SS UA Urobilinogen 0.2 E.U./dL Invalid Interpretation Code 0.2-1.0E.U. /dL AH Auto Urine SS WBC LM.HPF (Urine sed) [#/Area] 10-20 /HPF Invalid Interpretation Code 0-5/HPF AH Auto Urine SS No Panel Informationon 05-02 Culture Urine No growth at 48 hours. [facility] Work Phone: Culture Urine No growth at 48 hours. [facility] Work Phone: LABORATORYOrdered By: SYSTEM SYSTEM on 04-29-2023 25-hydroxyvitamin D3 [Mass/Vol] 15.9 ng/mL Invalid Interpretation Code ADM SS Cobalamin (Vitamin B12) [Mass/Vol] 292 pg/mL Invalid Interpretation Code 211 - 911 pg/mL ADM SS Ferritin [Mass/Vol] 9.6 ng/mL Invalid Interpretation Code 8.0 - 252.0 ng/mL ADM SS Folate [Mass/Vol] 10.16 ng/mL Invalid Interpretation Code 5.38 - 24.00 ng/mL AH ADM SS Iron [Mass/Vol] 52 ug/dL Invalid Interpretation Code 50 - 170 mcg/dL AH ADM SS Iron binding capacity [Mass/Vol] 318 mcg/dL Invalid Interpretation Code 250 - 500 mcg/dL ADM SS Iron saturation [Mass fraction] 16 1 Invalid Interpretation Code AH ADM SS LABORATORYOrdered By: SYSTEM SYSTEM on 06-26-2023 Monocyte distribution width Auto (Bld) [Entitic vol] 16.09 Invalid Interpretation Code 0.00 - 20.00 AH Workflow SS Comment on above: Result Comment: For ED adult patients suspected of sepsis, MDW<=20.0 does not rule out sepsis or risk of sepsis CEFOTAXIME:SUSC:PT:ISOLATE:O RDQN:MICon 04-27-2023 Cefotaxime ANA LILIA [Susc] >100,000 cfu/ml Klebsiella oxytoca Raoultella ornithinolytica >100,000 cfu/ml Myroides odoratimimus 10,000 - 50,000 cfu/ml Enterococcus faecalis 10,000 - 50,000 cfu/ml Vagococcus fluvialis Sensitivity testing is not recommended for one of the following reasons: 1. Established susceptibility patterns are available or 2. Interpretative criteria are not available. [facility] Work Phone: Cefotaxime ANA LILIA [Susc]on 04-04 Enterococcus faecalis Enterococcus faecalis [facility] Work Phone: Klebsiella oxytoca Raoultella ornithinolytica Klebsiella oxytoca Raoultella ornithinolytica [facility] Work Phone: My[facility]ides [facility]atimimus [facility] Work Phone: Vagococcus fluvialis Vagococcus fluvialis [facility] Work Phone: LABORATORYOrdered By: Jesus Pedro on 04-27-2023 Appearance (U) Martha *ABN* (04/27/23 10:44 PM) Invalid Interpretation Code Clear AH Auto Urine SS Bacteria LM.HPF (Urine sed) [#/Area] 3 /[HPF] Invalid Interpretation Code Negative/HP F AH Auto Urine SS Bilirubin Ql (U) Negative (04/27/23 10:44 PM) Invalid Interpretation Code Neg-Trace AH Auto Urine SS Color (U) Yellow (04/27/23 10:44 PM) Invalid Interpretation Code AH Auto Urine SS Glucose Test strip (U) [Mass/Vol] Negative Invalid Interpretation Code Negativemg/ dL AH Auto Urine SS Hemoglobin Auto test strip (U) [Mass/Vol] Moderate *ABN* (04/27/23 10:44 PM) Invalid Interpretation Code Neg-Trace AH Auto Urine SS Ketones Ql (U) Negative Invalid Interpretation Code Neg-Tracemg /dL AH Auto Urine SS UA Leuk Est Large *ABN* (04/27/23 10:44 PM) Invalid Interpretation Code Negative AH Auto Urine SS UA Nitrite Positive *ABN* (04/27/23 10:44 PM) Invalid Interpretation Code Negative AH Auto Urine SS UA pH 7.5 (04/27/23 10:44 PM) Invalid Interpretation Code 5.0 - 8.0 AH Auto Urine SS UA Protein 30 mg/dL Invalid Interpretation Code Negativemg/ dL AH Auto Urine SS UA RBC 3-5 /HPF Invalid Interpretation Code 0-2/HPF AH Auto Urine SS UA Spec Grav 1.020 (04/27/23 10:44 PM) Invalid Interpretation Code 1.006-1.029 Auto Urine SS UA Specimen Type Catheter (04/27/23 10:44 PM) Invalid Interpretation Code AH Auto Urine SS UA Squam Epithelial Rare /HPF Invalid Interpretation Code 0-20/HPF Auto Urine SS UA Urobilinogen 0.2 E.U./dL Invalid Interpretation Code 0.2-1.0E.U. /dL AH Auto Urine SS WBC LM.HPF (Urine sed) [#/Area] 5-10 /HPF Invalid Interpretation Code 0-5/HPF AH Auto Urine SS LABORATORYOrdered By: Alanna Russo on 04-27-2023 Appearance (U) Cloudy *ABN* (04/27/23 5:04 PM) Invalid Interpretation Code Clear AH Auto Urine SS Bacteria LM.HPF (Urine sed) [#/Area] 3 /[HPF] Invalid Interpretation Code Negative/HP F AH Auto Urine SS Bilirubin Ql (U) Negative (04/27/23 5:04 PM) Invalid Interpretation Code Neg-Trace AH Auto Urine SS Color (U) Yellow (04/27/23 5:04 PM) Invalid Interpretation Code AH Auto Urine SS Glucose Test strip (U) [Mass/Vol] Negative Invalid Interpretation Code Negativemg/ dL AH Auto Urine SS Hemoglobin Auto test strip (U) [Mass/Vol] Moderate *ABN* (04/27/23 5:04 PM) Invalid Interpretation Code Neg-Trace AH Auto Urine SS Ketones Ql (U) Negative Invalid Interpretation Code Neg-Tracemg /dL AH Auto Urine SS UA Leuk Est Large *ABN* (04/27/23 5:04 PM) Invalid Interpretation Code Negative AH Auto Urine SS UA Mucous Trace /HPF Invalid Interpretation Code AH Auto Urine SS UA Nitrite Positive *ABN* (04/27/23 5:04 PM) Invalid Interpretation Code Negative AH Auto Urine SS UA pH 7.5 (04/27/23 5:04 PM) Invalid Interpretation Code 5.0 - 8.0 AH Auto Urine SS UA Protein 100 mg/dL Invalid Interpretation Code Negativemg/ dL AH Auto Urine SS UA RBC 5-10 /HPF Invalid Interpretation Code 0-2/HPF AH Auto Urine SS UA Spec Grav 1.015 (04/27/23 5:04 PM) Invalid Interpretation Code 1.006-1.029 AH Auto Urine SS UA Specimen Type Clean Catch (04/27/23 5:04 PM) Invalid Interpretation Code AH Auto Urine SS UA Squam Epithelial 0-2 /HPF Invalid Interpretation Code 0-20/HPF AH Auto Urine SS UA Urobilinogen 0.2 E.U./dL Invalid Interpretation Code 0.2-1.0E.U. /dL AH Auto Urine SS WBC LM.HPF (Urine sed) [#/Area] 25-50 /HPF Invalid Interpretation Code 0-5/HPF AH Auto Urine SS LABORATORYOrdered By: SYSTEM SYSTEM on 04-27-2023 Monocyte distribution width Auto (Bld) [Entitic vol] 15.73 Invalid Interpretation Code 0.00 - 20.00 AH Workflow SS Comment on above: Result Comment: For ED adult patients suspected of sepsis, MDW<=20.0 does not rule out sepsis or risk of sepsis No Panel Informationon 04-27 Microscopic examination of blood, culture Blood Culture: No Growth at 5 days. [facility] Work Phone: Culture Urine >100,000 cfu/ml Mult iple bacterial morphotypes present. Probable Contamination. Suggest recollection if clinically indicated. [facility] Work Phone: LABORATORYOrdered By: SYSTEM SYSTEM on 03-05-2023 Albumin BCP dye [Mass/Vol] 2.7 G/dL Invalid Interpretation Code 3.2 - 4.8 G/dL AH ADM SS Albumin/Globulin [Mass ratio] 1.0 {ratio} Invalid Interpretation Code 0.9 - 1.6 ratio AH ADM SS ALP [Catalytic activity/Vol] 93 U/L Invalid Interpretation Code 38 - 126 U/L AH ADM SS ALT No additional P-5'-P [Catalytic activity/Vol] 33 U/L Invalid Interpretation Code 10 - 49 U/L ADM SS AST [Catalytic activity/Vol] 28 U/L Invalid Interpretation Code 8 - 34 U/L ADM SS Basophils (Bld) [#/Vol] 0.1 103/mcL Invalid Interpretation Code 0.0 - 0.3 10^3/mcL AH Workflow SS Basophils/100 WBC (Bld) 1.0 % Invalid Interpretation Code 0.0 - 2.5 % Workflow SS Bilirubin [Mass/Vol] mg/dL Invalid Interpretation Code 0.20 - 1.20 mg/dL ADM SS Calcium [Mass/Vol] 9.2 mg/dL Invalid Interpretation Code 8.7 - 10.4 mg/dL ADM SS Chloride [Moles/Vol] 105 mmol/L Invalid Interpretation Code 98 - 110 mEq/L ADM SS CO2 [Moles/Vol] 28 mmol/L Invalid Interpretation Code 22 - 32 mEq/L ADM SS Creatinine [Mass/Vol] 0.71 mg/dL Invalid Interpretation Code 0.50 - 1.20 mg/dL ADM SS Electrolyte Balance 7.0 mEq/L Invalid Interpretation Code 4.0 - 15.0 mEq/L ADM SS Eosinophils (Bld) [#/Vol] 0.4 103/mcL Invalid Interpretation Code 0.0 - 0.7 10^3/mcL Workflow SS Eosinophils/100 WBC (Bld) 5.4 % Invalid Interpretation Code 0.0 - 6.0 % Workflow SS Erythrocyte distribution width (RBC) [Ratio] 14.4 % Invalid Interpretation Code 11.5 - 15.5 % Workflow SS GFR/1.73 sq M.predicted among blacks MDRD (S/P/Bld) [Vol rate/Area] ml/min/1.73sqm Invalid Interpretation Code Chemistry S GFR/1.73 sq M.predicted among non-blacks MDRD (S/P/Bld) [Vol rate/Area] ml/min/1.73sqm Invalid Interpretation Code Chemistry S Globulin 2.6 G/dL Invalid Interpretation Code 1.5 - 3.8 G/dL ADM SS Glucose [Mass/Vol] 91 mg/dL Invalid Interpretation Code 70 - 110 mg/dL ADM SS Hematocrit (Bld) [Volume fraction] 33.2 % Invalid Interpretation Code 34.0 - 46.0 % AH Workflow SS Hemoglobin (Bld) [Mass/Vol] 10.7 G/dL Invalid Interpretation Code 12.0 - 16.0 G/dL AH Workflow SS Lymphocytes (Bld) [#/Vol] 1.6 103/mcL Invalid Interpretation Code 0.9 - 4.3 10^3/mcL AH Workflow SS Lymphocytes/100 WBC (Bld) 20.9 % Invalid Interpretation Code 20.0 - 40.0 % AH Workflow SS Magnesium [Mass/Vol] 1.6 mg/dL Invalid Interpretation Code 1.6 - 2.4 mg/dL AH ADM SS MCH (RBC) [Entitic mass] 31.3 pg Invalid Interpretation Code 27.0 - 33.0 pg AH Workflow SS MCHC 32.4 G/dL Invalid Interpretation Code 32.0 - 36.0 G/dL AH Workflow SS MCV (RBC) [Entitic vol] 96.5 fL Invalid Interpretation Code 80.0 - 99.0 fL Workflow SS Monocytes (Bld) [#/Vol] 1.0 103/mcL Invalid Interpretation Code 0.1 - 1.4 10^3/mcL AH Workflow SS Monocytes/100 WBC (Bld) 12.7 % Invalid Interpretation Code 2.0 - 13.0 % AH Workflow SS Neutrophils (Bld) [#/Vol] 4.6 103/mcL Invalid Interpretation Code 2.3 - 8.1 10^3/mcL AH Workflow SS Neutrophils/100 WBC (Bld) 60.0 % Invalid Interpretation Code 50.0 - 75.0 % AH Workflow SS Phosphate [Mass/Vol] 5.0 mg/dL Invalid Interpretation Code 2.4 - 5.1 mg/dL ADM SS Platelet mean volume (Bld) [Entitic vol] 6.9 fL Invalid Interpretation Code 6.6 - 10.5 fL AH Workflow SS Platelets (Bld) [#/Vol] 422 103/mcL Invalid Interpretation Code 150 - 450 10^3/mcL AH Workflow SS Potassium [Moles/Vol] 4.0 mmol/L Invalid Interpretation Code 3.5 - 5.0 mEq/L ADM SS Protein [Mass/Vol] 5.3 G/dL Invalid Interpretation Code 5.7 - 8.2 G/dL ADM SS RBC (Bld) [#/Vol] 3.44 106/mcL Invalid Interpretation Code 4.10 - 5.30 10^6/mcL AH Workflow SS Sodium [Moles/Vol] 140 mmol/L Invalid Interpretation Code 136 - 145 mEq/L ADM SS Urea nitrogen [Mass/Vol] 6.0 mg/dL Invalid Interpretation Code 8.0 - 22.0 mg/dL ADM SS Urea nitrogen/Creatinine [Mass ratio] 8.5 ratio Invalid Interpretation Code 10.0 - 22.0 ratio ADM SS WBC (Bld) [#/Vol] 7.7 103/mcL Invalid Interpretation Code 4.5 - 10.8 10^3/mcL Workflow SS LABORATORYOrdered By: SYSTEM SYSTEM on 03-04-2023 Albumin BCP dye [Mass/Vol] 2.6 G/dL Invalid Interpretation Code 3.2 - 4.8 G/dL ADM SS Albumin/Globulin [Mass ratio] 1.1 {ratio} Invalid Interpretation Code 0.9 - 1.6 ratio ADM SS ALP [Catalytic activity/Vol] 93 U/L Invalid Interpretation Code 38 - 126 U/L ADM SS ALT No additional P-5'-P [Catalytic activity/Vol] 36 U/L Invalid Interpretation Code 10 - 49 U/L ADM SS AST [Catalytic activity/Vol] 36 U/L Invalid Interpretation Code 8 - 34 U/L ADM SS Basophils (Bld) [#/Vol] 0.1 103/mcL Invalid Interpretation Code 0.0 - 0.3 10^3/mcL Workflow SS Basophils/100 WBC (Bld) 0.8 % Invalid Interpretation Code 0.0 - 2.5 % Workflow SS Bilirubin [Mass/Vol] mg/dL Invalid Interpretation Code 0.20 - 1.20 mg/dL ADM SS Calcium [Mass/Vol] 8.9 mg/dL Invalid Interpretation Code 8.7 - 10.4 mg/dL ADM SS Chloride [Moles/Vol] 106 mmol/L Invalid Interpretation Code 98 - 110 mEq/L ADM SS CO2 [Moles/Vol] 27 mmol/L Invalid Interpretation Code 22 - 32 mEq/L ADM SS Creatinine [Mass/Vol] 0.77 mg/dL Invalid Interpretation Code 0.50 - 1.20 mg/dL ADM SS Electrolyte Balance 4.0 mEq/L Invalid Interpretation Code 4.0 - 15.0 mEq/L ADM SS Eosinophils (Bld) [#/Vol] 0.4 103/mcL Invalid Interpretation Code 0.0 - 0.7 10^3/mcL AH Workflow SS Eosinophils/100 WBC (Bld) 6.4 % Invalid Interpretation Code 0.0 - 6.0 % AH Workflow SS Erythrocyte distribution width (RBC) [Ratio] 14.5 % Invalid Interpretation Code 11.5 - 15.5 % AH Workflow SS GFR/1.73 sq M.predicted among blacks MDRD (S/P/Bld) [Vol rate/Area] ml/min/1.73sqm Invalid Interpretation Code Chemistry S GFR/1.73 sq M.predicted among non-blacks MDRD (S/P/Bld) [Vol rate/Area] ml/min/1.73sqm Invalid Interpretation Code Chemistry S Globulin 2.4 G/dL Invalid Interpretation Code 1.5 - 3.8 G/dL ADM SS Glucose [Mass/Vol] 100 mg/dL Invalid Interpretation Code 70 - 110 mg/dL ADM SS Hematocrit (Bld) [Volume fraction] 32.6 % Invalid Interpretation Code 34.0 - 46.0 % Workflow SS Hemoglobin (Bld) [Mass/Vol] 11.2 G/dL Invalid Interpretation Code 12.0 - 16.0 G/dL AH Workflow SS Lymphocytes (Bld) [#/Vol] 1.6 103/mcL Invalid Interpretation Code 0.9 - 4.3 10^3/mcL Workflow SS Lymphocytes/100 WBC (Bld) 24.0 % Invalid Interpretation Code 20.0 - 40.0 % AH Workflow SS Magnesium [Mass/Vol] 1.8 mg/dL Invalid Interpretation Code 1.6 - 2.4 mg/dL ADM SS MCH (RBC) [Entitic mass] 33.1 pg Invalid Interpretation Code 27.0 - 33.0 pg AH Workflow SS MCHC 34.3 G/dL Invalid Interpretation Code 32.0 - 36.0 G/dL Workflow SS MCV (RBC) [Entitic vol] 96.6 fL Invalid Interpretation Code 80.0 - 99.0 fL Workflow SS Monocytes (Bld) [#/Vol] 1.0 103/mcL Invalid Interpretation Code 0.1 - 1.4 10^3/mcL AH Workflow SS Monocytes/100 WBC (Bld) 14.1 % Invalid Interpretation Code 2.0 - 13.0 % AH Workflow SS Neutrophils (Bld) [#/Vol] 3.7 103/mcL Invalid Interpretation Code 2.3 - 8.1 10^3/mcL AH Workflow SS Neutrophils/100 WBC (Bld) 54.7 % Invalid Interpretation Code 50.0 - 75.0 % AH Workflow SS Phosphate [Mass/Vol] 4.7 mg/dL Invalid Interpretation Code 2.4 - 5.1 mg/dL AH ADM SS Platelet mean volume (Bld) [Entitic vol] 6.6 fL Invalid Interpretation Code 6.6 - 10.5 fL AH Workflow SS Platelets (Bld) [#/Vol] 400 103/mcL Invalid Interpretation Code 150 - 450 10^3/mcL AH Workflow SS Potassium [Moles/Vol] 4.3 mmol/L Invalid Interpretation Code 3.5 - 5.0 mEq/L AH ADM SS Protein [Mass/Vol] 5.0 G/dL Invalid Interpretation Code 5.7 - 8.2 G/dL AH ADM SS RBC (Bld) [#/Vol] 3.37 106/mcL Invalid Interpretation Code 4.10 - 5.30 10^6/mcL AH Workflow SS Sodium [Moles/Vol] 137 mmol/L Invalid Interpretation Code 136 - 145 mEq/L ADM SS Urea nitrogen [Mass/Vol] 9.0 mg/dL Invalid Interpretation Code 8.0 - 22.0 mg/dL ADM SS Urea nitrogen/Creatinine [Mass ratio] 11.7 ratio Invalid Interpretation Code 10.0 - 22.0 ratio AH ADM SS WBC (Bld) [#/Vol] 6.8 103/mcL Invalid Interpretation Code 4.5 - 10.8 10^3/mcL AH Workflow SS LABORATORYOrdered By: Daja Muir on 03-03-2023 FLUAV RNA SUZI+probe Ql (Resp) Negative 3 (03/03/23 8:16 AM) Invalid Interpretation Code Negative Auto Viro/Sero SS Comment on above: Result Comment: Note s FLUBV RNA SUZI+probe Ql (Resp) Negative 4 (03/03/23 8:16 AM) Invalid Interpretation Code Negative Auto Viro/Sero SS Comment on above: Result Comment: Note s RSV PCR Negative 5 (03/03/23 8:16 AM) Invalid Interpretation Code Negative Auto Viro/Sero SS Comment on above: Result Comment: Note s SARS-CoV-2 (COVID-19) RNA SUZI+probe Ql (Resp) Negative 2 (5/1/23 8:16 AM) Invalid Interpretation Code Negative Auto Viro/Sero SS Comment on above: Result Comment: Note s [id number] LABORATORYOrdered By: SYSTEM SYSTEM on 03-03-2023 Albumin BCP dye [Mass/Vol] 2.5 G/dL Invalid Interpretation Code 3.2 - 4.8 G/dL ADM SS Albumin/Globulin [Mass ratio] 1.0 {ratio} Invalid Interpretation Code 0.9 - 1.6 ratio AH ADM SS ALP [Catalytic activity/Vol] 87 U/L Invalid Interpretation Code 38 - 126 U/L ADM SS ALT No additional P-5'-P [Catalytic activity/Vol] 33 U/L Invalid Interpretation Code 10 - 49 U/L ADM SS AST [Catalytic activity/Vol] 38 U/L Invalid Interpretation Code 8 - 34 U/L ADM SS Basophils (Bld) [#/Vol] 0.1 103/mcL Invalid Interpretation Code 0.0 - 0.3 10^3/mcL AH Workflow SS Basophils/100 WBC (Bld) 1.3 % Invalid Interpretation Code 0.0 - 2.5 % Workflow SS Bilirubin [Mass/Vol] mg/dL Invalid Interpretation Code 0.20 - 1.20 mg/dL ADM SS Calcium [Mass/Vol] 8.8 mg/dL Invalid Interpretation Code 8.7 - 10.4 mg/dL ADM SS Chloride [Moles/Vol] 106 mmol/L Invalid Interpretation Code 98 - 110 mEq/L ADM SS CO2 [Moles/Vol] 28 mmol/L Invalid Interpretation Code 22 - 32 mEq/L ADM SS Creatinine [Mass/Vol] 0.72 mg/dL Invalid Interpretation Code 0.50 - 1.20 mg/dL ADM SS Electrolyte Balance 4.0 mEq/L Invalid Interpretation Code 4.0 - 15.0 mEq/L ADM SS Eosinophils (Bld) [#/Vol] 0.4 103/mcL Invalid Interpretation Code 0.0 - 0.7 10^3/mcL Workflow SS Eosinophils/100 WBC (Bld) 5.9 % Invalid Interpretation Code 0.0 - 6.0 % Workflow SS Erythrocyte distribution width (RBC) [Ratio] 14.6 % Invalid Interpretation Code 11.5 - 15.5 % Workflow SS GFR/1.73 sq M.predicted among blacks MDRD (S/P/Bld) [Vol rate/Area] ml/min/1.73sqm Invalid Interpretation Code Chemistry S GFR/1.73 sq M.predicted among non-blacks MDRD (S/P/Bld) [Vol rate/Area] ml/min/1.73sqm Invalid Interpretation Code Chemistry S Globulin 2.5 G/dL Invalid Interpretation Code 1.5 - 3.8 G/dL ADM SS Glucose [Mass/Vol] 92 mg/dL Invalid Interpretation Code 70 - 110 mg/dL ADM SS Hematocrit (Bld) [Volume fraction] 31.7 % Invalid Interpretation Code 34.0 - 46.0 % AH Workflow SS Hemoglobin (Bld) [Mass/Vol] 10.7 G/dL Invalid Interpretation Code 12.0 - 16.0 G/dL Workflow SS Lymphocytes (Bld) [#/Vol] 1.7 103/mcL Invalid Interpretation Code 0.9 - 4.3 10^3/mcL Workflow SS Lymphocytes/100 WBC (Bld) 25.4 % Invalid Interpretation Code 20.0 - 40.0 % Workflow SS Magnesium [Mass/Vol] 1.6 mg/dL Invalid Interpretation Code 1.6 - 2.4 mg/dL ADM SS MCH (RBC) [Entitic mass] 32.5 pg Invalid Interpretation Code 27.0 - 33.0 pg AH Workflow SS MCHC 33.6 G/dL Invalid Interpretation Code 32.0 - 36.0 G/dL Workflow SS MCV (RBC) [Entitic vol] 96.9 fL Invalid Interpretation Code 80.0 - 99.0 fL Workflow SS Monocytes (Bld) [#/Vol] 1.0 103/mcL Invalid Interpretation Code 0.1 - 1.4 10^3/mcL Workflow SS Monocytes/100 WBC (Bld) 14.5 % Invalid Interpretation Code 2.0 - 13.0 % Workflow SS Neutrophils (Bld) [#/Vol] 3.5 103/mcL Invalid Interpretation Code 2.3 - 8.1 10^3/mcL AH Workflow SS Neutrophils/100 WBC (Bld) 52.9 % Invalid Interpretation Code 50.0 - 75.0 % AH Workflow SS Phosphate [Mass/Vol] 4.9 mg/dL Invalid Interpretation Code 2.4 - 5.1 mg/dL ADM SS Platelet mean volume (Bld) [Entitic vol] 7.1 fL Invalid Interpretation Code 6.6 - 10.5 fL AH Workflow SS Platelets (Bld) [#/Vol] 420 103/mcL Invalid Interpretation Code 150 - 450 10^3/mcL AH Workflow SS Potassium [Moles/Vol] 4.5 mmol/L Invalid Interpretation Code 3.5 - 5.0 mEq/L AH ADM SS Protein [Mass/Vol] 5.0 G/dL Invalid Interpretation Code 5.7 - 8.2 G/dL AH ADM SS RBC (Bld) [#/Vol] 3.27 106/mcL Invalid Interpretation Code 4.10 - 5.30 10^6/mcL AH Workflow SS Sodium [Moles/Vol] 138 mmol/L Invalid Interpretation Code 136 - 145 mEq/L AH ADM SS Urea nitrogen [Mass/Vol] 7.0 mg/dL Invalid Interpretation Code 8.0 - 22.0 mg/dL AH ADM SS Urea nitrogen/Creatinine [Mass ratio] 9.7 ratio Invalid Interpretation Code 10.0 - 22.0 ratio AH ADM SS WBC (Bld) [#/Vol] 6.6 103/mcL Invalid Interpretation Code 4.5 - 10.8 10^3/mcL AH Workflow SS CEFTRIAXONE:SUSC:PT:ISOLATE: ORDQN:MICon 02-23-2023 cefTRIAXone ANA LILIA [Susc] 10,000 - 50,000 c fu/ml Escherichia coli ESBL Extended-Spectrum B-Lactamase isolate may be clinically resistant to therapy with Penicillins, Cephalosporinsor Aztreonam despite apparent in vitro susceptibility to some of these agents. Use of Imipenem is currently restricted to Infectious Disease /Intensivists. Please consult Physicians accordingly. [facility] Work Phone: LABORATORYOrdered By: Juan Diego Echevarria on 02-23-2023 Appearance (U) Clear (02/23/23 12:36 PM) Invalid Interpretation Code Clear AH Auto Urine SS Bilirubin Ql (U) Negative (02/23/23 12:36 PM) Invalid Interpretation Code Neg-Trace AH Auto Urine SS Color (U) Dark Yellow (02/23/23 12:36 PM) Invalid Interpretation Code AH Auto Urine SS Glucose Test strip (U) [Mass/Vol] Negative Invalid Interpretation Code Negativemg/ dL AH Auto Urine SS Hemoglobin Auto test strip (U) [Mass/Vol] Large *ABN* (02/23/23 12:36 PM) Invalid Interpretation Code Neg-Trace AH Auto Urine SS Ketones Ql (U) Negative Invalid Interpretation Code Neg-Tracemg /dL AH Auto Urine SS RBC.non-dysmorphic LM Ql (Urine sed) 25-50 /HPF Invalid Interpretation Code AH Auto Urine SS UA Leuk Est Small *ABN* (02/23/23 12:36 PM) Invalid Interpretation Code Negative AH Auto Urine SS UA Nitrite Negative (02/23/23 12:36 PM) Invalid Interpretation Code Negative AH Auto Urine SS UA pH 7.5 (02/23/23 12:36 PM) Invalid Interpretation Code 5.0 - 8.0 AH Auto Urine SS UA Protein 100 mg/dL Invalid Interpretation Code Negativemg/ dL AH Auto Urine SS UA RBC 10-20 /HPF Invalid Interpretation Code 0-2/HPF AH Auto Urine SS UA Spec Grav 1.015 (02/23/23 12:36 PM) Invalid Interpretation Code 1.006-1.029 Auto Urine SS UA Specimen Type Clean Catch (02/23/23 12:36 PM) Invalid Interpretation Code AH Auto Urine SS UA Squam Epithelial 3-5 /HPF Invalid Interpretation Code 0-20/HPF AH Auto Urine SS UA Urobilinogen 0.2 E.U./dL Invalid Interpretation Code 0.2-1.0E.U. /dL AH Auto Urine SS WBC LM.HPF (Urine sed) [#/Area] 5-10 /HPF Invalid Interpretation Code 0-5/HPF AH Auto Urine SS LABORATORYOrdered By: Madyson Magallanes on 02-23-2023 Lactate [Moles/Vol] 0.8 mmol/L Invalid Interpretation Code 0.2 - 2.0 mmol/L AH Auto Chem SS LABORATORYOrdered By: SYSTEM SYSTEM on 02-23-2023 Monocyte distribution width Auto (Bld) [Entitic vol] 20.71 Invalid Interpretation Code 0.00 - 20.00 Workflow SS Comment on above: Result Comment: For adults in ED, MDW>20.0 may be associated with a higher risk of sepsis during the first 12hrs of hospital admission LABORATORYOrdered By: Radha Penn on 02-23-2023 Beta HCG ( test) Ql (U) Negative (02/23/23 12:06 PM) [facility] Work Phone: No Panel Informationon 02-23 Culture Urine No growth at 48 hours. [facility] Work Phone: Microscopic examination of blood, culture Blood Culture: No Growth at 5 days. [facility] Work Phone: cefTRIAXone ANA LILIA [[facility] [place]on Escherichia coli ESBL Escherichia coli ESBL [facility] Work Phone: LABORATORYOrdered By: SYSTEM SYSTEM on 01-06-2023 Albumin BCP dye [Mass/Vol] 2.4 G/dL Invalid Interpretation Code 3.2 - 4.8 G/dL ADM SS Albumin/Globulin [Mass ratio] 1.0 {ratio} Invalid Interpretation Code 0.9 - 1.6 ratio ADM SS ALP [Catalytic activity/Vol] 58 U/L Invalid Interpretation Code 38 - 126 U/L ADM SS ALT No additional P-5'-P [Catalytic activity/Vol] U/L 1 Invalid Interpretation Code 10 - 49 U/L ADM SS AST [Catalytic activity/Vol] 15 U/L Invalid Interpretation Code 8 - 34 U/L ADM SS Basophils (Bld) [#/Vol] 0.0 103/mcL Invalid Interpretation Code 0.0 - 0.3 10^3/mcL Workflow SS Basophils/100 WBC (Bld) 0.2 % Invalid Interpretation Code 0.0 - 2.5 % Workflow SS Bilirubin [Mass/Vol] mg/dL Invalid Interpretation Code 0.20 - 1.20 mg/dL ADM SS Calcium [Mass/Vol] 8.7 mg/dL Invalid Interpretation Code 8.7 - 10.4 mg/dL ADM SS Chloride [Moles/Vol] 113 mmol/L Invalid Interpretation Code 98 - 110 mEq/L ADM SS CO2 [Moles/Vol] 26 mmol/L Invalid Interpretation Code 22 - 32 mEq/L ADM SS Creatinine [Mass/Vol] 0.83 mg/dL Invalid Interpretation Code 0.50 - 1.20 mg/dL ADM SS Electrolyte Balance 4.0 mEq/L Invalid Interpretation Code 4.0 - 15.0 mEq/L ADM SS Eosinophils (Bld) [#/Vol] 0.4 103/mcL Invalid Interpretation Code 0.0 - 0.7 10^3/mcL Workflow SS Eosinophils/100 WBC (Bld) 7.2 % Invalid Interpretation Code 0.0 - 6.0 % Workflow SS Erythrocyte distribution width (RBC) [Ratio] 14.4 % Invalid Interpretation Code 11.5 - 15.5 % Workflow SS GFR/1.73 sq M.predicted among blacks MDRD (S/P/Bld) [Vol rate/Area] ml/min/1.73sqm Invalid Interpretation Code Chemistry S GFR/1.73 sq M.predicted among non-blacks MDRD (S/P/Bld) [Vol rate/Area] ml/min/1.73sqm Invalid Interpretation Code Chemistry S Globulin 2.4 G/dL Invalid Interpretation Code 1.5 - 3.8 G/dL ADM SS Glucose [Mass/Vol] 88 mg/dL Invalid Interpretation Code 70 - 110 mg/dL ADM SS Hematocrit (Bld) [Volume fraction] 34.8 % Invalid Interpretation Code 34.0 - 46.0 % Workflow SS Hemoglobin (Bld) [Mass/Vol] 11.5 G/dL Invalid Interpretation Code 12.0 - 16.0 G/dL Workflow SS Lymphocytes (Bld) [#/Vol] 1.6 103/mcL Invalid Interpretation Code 0.9 - 4.3 10^3/mcL Workflow SS Lymphocytes/100 WBC (Bld) 31.1 % Invalid Interpretation Code 20.0 - 40.0 % Workflow SS Magnesium [Mass/Vol] 1.9 mg/dL Invalid Interpretation Code 1.6 - 2.4 mg/dL ADM SS MCH (RBC) [Entitic mass] 32.5 pg Invalid Interpretation Code 27.0 - 33.0 pg AH Workflow SS MCHC 33.1 G/dL Invalid Interpretation Code 32.0 - 36.0 G/dL Workflow SS MCV (RBC) [Entitic vol] 98.3 fL Invalid Interpretation Code 80.0 - 99.0 fL Workflow SS Monocytes (Bld) [#/Vol] 0.6 103/mcL Invalid Interpretation Code 0.1 - 1.4 10^3/mcL AH Workflow SS Monocytes/100 WBC (Bld) 11.0 % Invalid Interpretation Code 2.0 - 13.0 % Workflow SS Neutrophils (Bld) [#/Vol] 2.6 103/mcL Invalid Interpretation Code 2.3 - 8.1 10^3/mcL AH Workflow SS Neutrophils/100 WBC (Bld) 50.5 % Invalid Interpretation Code 50.0 - 75.0 % AH Workflow SS Phosphate [Mass/Vol] 3.9 mg/dL Invalid Interpretation Code 2.4 - 5.1 mg/dL AH ADM SS Platelet mean volume (Bld) [Entitic vol] 7.0 fL Invalid Interpretation Code 6.6 - 10.5 fL Workflow SS Platelets (Bld) [#/Vol] 319 103/mcL Invalid Interpretation Code 150 - 450 10^3/mcL AH Workflow SS Potassium [Moles/Vol] 4.2 mmol/L Invalid Interpretation Code 3.5 - 5.0 mEq/L AH ADM SS Comment on above: Result Comment: Spec imen slightly hemolyzed. Protein [Mass/Vol] 4.8 G/dL Invalid Interpretation Code 5.7 - 8.2 G/dL ADM SS RBC (Bld) [#/Vol] 3.54 106/mcL Invalid Interpretation Code 4.10 - 5.30 10^6/mcL AH Workflow SS Sodium [Moles/Vol] 143 mmol/L Invalid Interpretation Code 136 - 145 mEq/L ADM SS Urea nitrogen [Mass/Vol] 11.0 mg/dL Invalid Interpretation Code 8.0 - 22.0 mg/dL ADM SS Urea nitrogen/Creatinine [Mass ratio] 13.3 ratio Invalid Interpretation Code 10.0 - 22.0 ratio ADM SS WBC (Bld) [#/Vol] 5.2 103/mcL Invalid Interpretation Code 4.5 - 10.8 10^3/mcL Workflow SS LABORATORYOrdered By: SYSTEM SYSTEM on 01-05-2023 Albumin BCP dye [Mass/Vol] 2.4 G/dL Invalid Interpretation Code 3.2 - 4.8 G/dL ADM SS Albumin/Globulin [Mass ratio] 1.1 {ratio} Invalid Interpretation Code 0.9 - 1.6 ratio AH ADM SS ALP [Catalytic activity/Vol] 57 U/L Invalid Interpretation Code 38 - 126 U/L ADM SS ALT No additional P-5'-P [Catalytic activity/Vol] U/L 1 Invalid Interpretation Code 10 - 49 U/L AH ADM SS AST [Catalytic activity/Vol] 11 U/L Invalid Interpretation Code 8 - 34 U/L ADM SS Basophils (Bld) [#/Vol] 0.1 103/mcL Invalid Interpretation Code 0.0 - 0.3 10^3/mcL AH Workflow SS Basophils/100 WBC (Bld) 1.3 % Invalid Interpretation Code 0.0 - 2.5 % Workflow SS Bilirubin [Mass/Vol] mg/dL Invalid Interpretation Code 0.20 - 1.20 mg/dL ADM SS Calcium [Mass/Vol] 8.6 mg/dL Invalid Interpretation Code 8.7 - 10.4 mg/dL ADM SS Chloride [Moles/Vol] 113 mmol/L Invalid Interpretation Code 98 - 110 mEq/L ADM SS CO2 [Moles/Vol] 26 mmol/L Invalid Interpretation Code 22 - 32 mEq/L ADM SS Creatinine [Mass/Vol] 0.79 mg/dL Invalid Interpretation Code 0.50 - 1.20 mg/dL ADM SS Electrolyte Balance 3.0 mEq/L Invalid Interpretation Code 4.0 - 15.0 mEq/L ADM SS Eosinophils (Bld) [#/Vol] 0.4 103/mcL Invalid Interpretation Code 0.0 - 0.7 10^3/mcL Workflow SS Eosinophils/100 WBC (Bld) 8.2 % Invalid Interpretation Code 0.0 - 6.0 % Workflow SS Erythrocyte distribution width (RBC) [Ratio] 14.1 % Invalid Interpretation Code 11.5 - 15.5 % Workflow SS GFR/1.73 sq M.predicted among blacks MDRD (S/P/Bld) [Vol rate/Area] ml/min/1.73sqm Invalid Interpretation Code Chemistry S GFR/1.73 sq M.predicted among non-blacks MDRD (S/P/Bld) [Vol rate/Area] ml/min/1.73sqm Invalid Interpretation Code Chemistry S Globulin 2.2 G/dL Invalid Interpretation Code 1.5 - 3.8 G/dL ADM SS Glucose [Mass/Vol] 93 mg/dL Invalid Interpretation Code 70 - 110 mg/dL ADM SS Hematocrit (Bld) [Volume fraction] 33.7 % Invalid Interpretation Code 34.0 - 46.0 % Workflow SS Hemoglobin (Bld) [Mass/Vol] 11.1 G/dL Invalid Interpretation Code 12.0 - 16.0 G/dL Workflow SS Lymphocytes (Bld) [#/Vol] 1.6 103/mcL Invalid Interpretation Code 0.9 - 4.3 10^3/mcL Workflow SS Lymphocytes/100 WBC (Bld) 29.7 % Invalid Interpretation Code 20.0 - 40.0 % AH Workflow SS Magnesium [Mass/Vol] 2.0 mg/dL Invalid Interpretation Code 1.6 - 2.4 mg/dL AH ADM SS MCH (RBC) [Entitic mass] 32.7 pg Invalid Interpretation Code 27.0 - 33.0 pg AH Workflow SS MCHC 33.0 G/dL Invalid Interpretation Code 32.0 - 36.0 G/dL Workflow SS MCV (RBC) [Entitic vol] 99.0 fL Invalid Interpretation Code 80.0 - 99.0 fL AH Workflow SS Monocytes (Bld) [#/Vol] 0.6 103/mcL Invalid Interpretation Code 0.1 - 1.4 10^3/mcL Workflow SS Monocytes/100 WBC (Bld) 10.9 % Invalid Interpretation Code 2.0 - 13.0 % Workflow SS Neutrophils (Bld) [#/Vol] 2.7 103/mcL Invalid Interpretation Code 2.3 - 8.1 10^3/mcL Workflow SS Neutrophils/100 WBC (Bld) 49.9 % Invalid Interpretation Code 50.0 - 75.0 % Workflow SS Phosphate [Mass/Vol] 3.8 mg/dL Invalid Interpretation Code 2.4 - 5.1 mg/dL ADM SS Platelet mean volume (Bld) [Entitic vol] 7.4 fL Invalid Interpretation Code 6.6 - 10.5 fL Workflow SS Platelets (Bld) [#/Vol] 318 103/mcL Invalid Interpretation Code 150 - 450 10^3/mcL AH Workflow SS Potassium [Moles/Vol] 4.2 mmol/L Invalid Interpretation Code 3.5 - 5.0 mEq/L ADM SS Protein [Mass/Vol] 4.6 G/dL Invalid Interpretation Code 5.7 - 8.2 G/dL ADM SS RBC (Bld) [#/Vol] 3.40 106/mcL Invalid Interpretation Code 4.10 - 5.30 10^6/mcL Workflow SS Sodium [Moles/Vol] 142 mmol/L Invalid Interpretation Code 136 - 145 mEq/L ADM SS Urea nitrogen [Mass/Vol] 8.0 mg/dL Invalid Interpretation Code 8.0 - 22.0 mg/dL ADM SS Urea nitrogen/Creatinine [Mass ratio] 10.1 ratio Invalid Interpretation Code 10.0 - 22.0 ratio ADM SS WBC (Bld) [#/Vol] 5.4 103/mcL Invalid Interpretation Code 4.5 - 10.8 10^3/mcL Workflow SS LABORATORYOrdered By: SYSTEM SYSTEM on 01-04-2023 Albumin BCP dye [Mass/Vol] 2.6 G/dL Invalid Interpretation Code 3.2 - 4.8 G/dL ADM SS Albumin/Globulin [Mass ratio] 1.1 {ratio} Invalid Interpretation Code 0.9 - 1.6 ratio ADM SS ALP [Catalytic activity/Vol] 61 U/L Invalid Interpretation Code 38 - 126 U/L ADM SS ALT No additional P-5'-P [Catalytic activity/Vol] U/L 1 Invalid Interpretation Code 10 - 49 U/L ADM SS AST [Catalytic activity/Vol] 9 U/L Invalid Interpretation Code 8 - 34 U/L ADM SS Basophils (Bld) [#/Vol] 0.1 103/mcL Invalid Interpretation Code 0.0 - 0.3 10^3/mcL Workflow SS Basophils/100 WBC (Bld) 1.2 % Invalid Interpretation Code 0.0 - 2.5 % Workflow SS Bilirubin [Mass/Vol] mg/dL Invalid Interpretation Code 0.20 - 1.20 mg/dL ADM SS Calcium [Mass/Vol] 8.5 mg/dL Invalid Interpretation Code 8.7 - 10.4 mg/dL ADM SS Chloride [Moles/Vol] 115 mmol/L Invalid Interpretation Code 98 - 110 mEq/L ADM SS CO2 [Moles/Vol] 27 mmol/L Invalid Interpretation Code 22 - 32 mEq/L ADM SS Creatinine [Mass/Vol] 0.81 mg/dL Invalid Interpretation Code 0.50 - 1.20 mg/dL ADM SS Electrolyte Balance 1.0 mEq/L Invalid Interpretation Code 4.0 - 15.0 mEq/L ADM SS Eosinophils (Bld) [#/Vol] 0.5 103/mcL Invalid Interpretation Code 0.0 - 0.7 10^3/mcL Workflow SS Eosinophils/100 WBC (Bld) 8.5 % Invalid Interpretation Code 0.0 - 6.0 % Workflow SS Erythrocyte distribution width (RBC) [Ratio] 14.3 % Invalid Interpretation Code 11.5 - 15.5 % Workflow SS GFR/1.73 sq M.predicted among blacks MDRD (S/P/Bld) [Vol rate/Area] ml/min/1.73sqm Invalid Interpretation Code Chemistry S GFR/1.73 sq M.predicted among non-blacks MDRD (S/P/Bld) [Vol rate/Area] ml/min/1.73sqm Invalid Interpretation Code Chemistry S Globulin 2.3 G/dL Invalid Interpretation Code 1.5 - 3.8 G/dL ADM SS Glucose [Mass/Vol] 90 mg/dL Invalid Interpretation Code 70 - 110 mg/dL ADM SS Hematocrit (Bld) [Volume fraction] 33.5 % Invalid Interpretation Code 34.0 - 46.0 % Workflow SS Hemoglobin (Bld) [Mass/Vol] 11.2 G/dL Invalid Interpretation Code 12.0 - 16.0 G/dL Workflow SS Lymphocytes (Bld) [#/Vol] 1.9 103/mcL Invalid Interpretation Code 0.9 - 4.3 10^3/mcL Workflow SS Lymphocytes/100 WBC (Bld) 33.8 % Invalid Interpretation Code 20.0 - 40.0 % Workflow SS Magnesium [Mass/Vol] 2.1 mg/dL Invalid Interpretation Code 1.6 - 2.4 mg/dL ADM SS MCH (RBC) [Entitic mass] 33.0 pg Invalid Interpretation Code 27.0 - 33.0 pg Workflow SS MCHC 33.6 G/dL Invalid Interpretation Code 32.0 - 36.0 G/dL Workflow SS MCV (RBC) [Entitic vol] 98.4 fL Invalid Interpretation Code 80.0 - 99.0 fL Workflow SS Monocytes (Bld) [#/Vol] 0.5 103/mcL Invalid Interpretation Code 0.1 - 1.4 10^3/mcL Workflow SS Monocytes/100 WBC (Bld) 8.3 % Invalid Interpretation Code 2.0 - 13.0 % Workflow SS Neutrophils (Bld) [#/Vol] 2.8 103/mcL Invalid Interpretation Code 2.3 - 8.1 10^3/mcL Workflow SS Neutrophils/100 WBC (Bld) 48.2 % Invalid Interpretation Code 50.0 - 75.0 % Workflow SS Phosphate [Mass/Vol] 3.9 mg/dL Invalid Interpretation Code 2.4 - 5.1 mg/dL ADM SS Platelet mean volume (Bld) [Entitic vol] 7.3 fL Invalid Interpretation Code 6.6 - 10.5 fL AH Workflow SS Platelets (Bld) [#/Vol] 321 103/mcL Invalid Interpretation Code 150 - 450 10^3/mcL AH Workflow SS Potassium [Moles/Vol] 4.2 mmol/L Invalid Interpretation Code 3.5 - 5.0 mEq/L AH ADM SS Protein [Mass/Vol] 4.9 G/dL Invalid Interpretation Code 5.7 - 8.2 G/dL AH ADM SS RBC (Bld) [#/Vol] 3.40 106/mcL Invalid Interpretation Code 4.10 - 5.30 10^6/mcL AH Workflow SS Sodium [Moles/Vol] 143 mmol/L Invalid Interpretation Code 136 - 145 mEq/L AH ADM SS Urea nitrogen [Mass/Vol] 9.0 mg/dL Invalid Interpretation Code 8.0 - 22.0 mg/dL AH ADM SS Urea nitrogen/Creatinine [Mass ratio] 11.1 ratio Invalid Interpretation Code 10.0 - 22.0 ratio AH ADM SS WBC (Bld) [#/Vol] 5.7 103/mcL Invalid Interpretation Code 4.5 - 10.8 10^3/mcL AH Workflow SS LABORATORYOrdered By: Miroslava Segura on 01-01-2023 Appearance (U) Clear (01/01/23 8:13 PM) Invalid Interpretation Code Clear AH Auto Urine SS Bacteria LM.HPF (Urine sed) [#/Area] 2 /[HPF] Invalid Interpretation Code Negative/HP F AH Auto Urine SS Bilirubin Ql (U) Negative (01/01/23 8:13 PM) Invalid Interpretation Code Neg-Trace AH Auto Urine SS Color (U) Yellow (01/01/23 8:13 PM) Invalid Interpretation Code AH Auto Urine SS Crystals.amorphous LM.HPF (Urine sed) [#/Area] 1 /[HPF] Invalid Interpretation Code AH Auto Urine SS Glucose Test strip (U) [Mass/Vol] Negative Invalid Interpretation Code Negativemg/ dL AH Auto Urine SS Hemoglobin Auto test strip (U) [Mass/Vol] Moderate *ABN* (01/01/23 8:13 PM) Invalid Interpretation Code Neg-Trace AH Auto Urine SS Ketones Ql (U) Negative Invalid Interpretation Code Neg-Tracemg /dL AH Auto Urine SS RBC.non-dysmorphic LM Ql (Urine sed) 5-10 /HPF Invalid Interpretation Code AH Auto Urine SS UA Glitter cells 0-2 /HPF Invalid Interpretation Code AH Auto Urine SS UA Leuk Est Moderate *ABN* (01/01/23 8:13 PM) Invalid Interpretation Code Negative AH Auto Urine SS UA Mucous Trace /HPF Invalid Interpretation Code AH Auto Urine SS UA Nitrite Positive *ABN* (01/01/23 8:13 PM) Invalid Interpretation Code Negative AH Auto Urine SS UA pH 7.5 (01/01/23 8:13 PM) Invalid Interpretation Code 5.0 - 8.0 AH Auto Urine SS UA Protein Trace mg/dL Invalid Interpretation Code Negativemg/ dL AH Auto Urine SS UA RBC 5-10 /HPF Invalid Interpretation Code 0-2/HPF AH Auto Urine SS UA Spec Grav 1.020 (01/01/23 8:13 PM) Invalid Interpretation Code 1.006-1.029 AH Auto Urine SS UA Specimen Type Catheter (01/01/23 8:13 PM) Invalid Interpretation Code AH Auto Urine SS UA Squam Epithelial 0-2 /HPF Invalid Interpretation Code 0-20/HPF AH Auto Urine SS UA Urobilinogen 0.2 E.U./dL Invalid Interpretation Code 0.2-1.0E.U. /dL AH Auto Urine SS WBC LM.HPF (Urine sed) [#/Area] 5-10 /HPF Invalid Interpretation Code 0-5/HPF AH Auto Urine SS Appearance (U) Clear (01/01/23 7:59 PM) Invalid Interpretation Code Clear AH Auto Urine SS Bacteria LM.HPF (Urine sed) [#/Area] 1 /[HPF] Invalid Interpretation Code Negative/HP F AH Auto Urine SS Bilirubin Ql (U) Negative (01/01/23 7:59 PM) Invalid Interpretation Code Neg-Trace AH Auto Urine SS Calcium oxalate crystals LM.HPF (Urine sed) [#/Area] Trace /HPF Invalid Interpretation Code AH Auto Urine SS Color (U) Yellow (01/01/23 7:59 PM) Invalid Interpretation Code AH Auto Urine SS Crystals.amorphous LM.HPF (Urine sed) [#/Area] 1 /[HPF] Invalid Interpretation Code AH Auto Urine SS Glucose Test strip (U) [Mass/Vol] Negative Invalid Interpretation Code Negativemg/ dL AH Auto Urine SS Hemoglobin Auto test strip (U) [Mass/Vol] Small *ABN* (01/01/23 7:59 PM) Invalid Interpretation Code Neg-Trace AH Auto Urine SS Ketones Ql (U) Negative Invalid Interpretation Code Neg-Tracemg /dL AH Auto Urine SS RBC.non-dysmorphic LM Ql (Urine sed) 3-5 /HPF Invalid Interpretation Code AH Auto Urine SS UA Leuk Est Moderate *ABN* (01/01/23 7:59 PM) Invalid Interpretation Code Negative AH Auto Urine SS UA Mucous Trace /HPF Invalid Interpretation Code AH Auto Urine SS UA Nitrite Positive *ABN* (01/01/23 7:59 PM) Invalid Interpretation Code Negative AH Auto Urine SS UA pH 7.0 (01/01/23 7:59 PM) Invalid Interpretation Code 5.0 - 8.0 AH Auto Urine SS UA Protein Negative Invalid Interpretation Code Negativemg/ dL AH Auto Urine SS UA RBC 5-10 /HPF Invalid Interpretation Code 0-2/HPF AH Auto Urine SS UA Spec Grav 1.025 (01/01/23 7:59 PM) Invalid Interpretation Code 1.006-1.029 AH Auto Urine SS UA Specimen Type Catheter 2 (01/01/23 7:59 PM) Invalid Interpretation Code AH Auto Urine SS Comment on above: Result Comment: L Ne phrostomy UA Squam Epithelial Negative Invalid Interpretation Code 0-20/HPF AH Auto Urine SS UA Urobilinogen 0.2 E.U./dL Invalid Interpretation Code 0.2-1.0E.U. /dL AH Auto Urine SS WBC LM.HPF (Urine sed) [#/Area] 3-5 /HPF Invalid Interpretation Code 0-5/HPF AH Auto Urine SS LABORATORYOrdered By: SYSTEM SYSTEM on 01-01-2023 25-hydroxyvitamin D3 [Mass/Vol] 18.6 ng/mL Invalid Interpretation Code AH ADM SS Albumin BCP dye [Mass/Vol] 3.8 G/dL Invalid Interpretation Code 3.2 - 4.8 G/dL AH ADM SS Albumin/Globulin [Mass ratio] 1.2 {ratio} Invalid Interpretation Code 0.9 - 1.6 ratio AH ADM SS ALP [Catalytic activity/Vol] 82 U/L Invalid Interpretation Code 38 - 126 U/L AH ADM SS ALT No additional P-5'-P [Catalytic activity/Vol] U/L 1 Invalid Interpretation Code 10 - 49 U/L AH ADM SS AST [Catalytic activity/Vol] 14 U/L Invalid Interpretation Code 8 - 34 U/L AH ADM SS Basophils (Bld) [#/Vol] 0.1 103/mcL Invalid Interpretation Code 0.0 - 0.3 10^3/mcL AH Workflow SS Basophils/100 WBC (Bld) 1.4 % Invalid Interpretation Code 0.0 - 2.5 % Workflow SS Bili Indirect Unable to Calculate Invalid Interpretation Code 0.1 - 10.0 Chemistry S Comment on above: Result Comment: Unab le to calculate this test result accurately. Results used to calculate this test are outside the reportable range. Bilirubin [Mass/Vol] 0.20 mg/dL Invalid Interpretation Code 0.20 - 1.20 mg/dL ADM SS Bilirubin.conjugated [Mass/Vol] mg/dL Invalid Interpretation Code 0.0 - 0.4 mg/dL ADM SS Calcium [Mass/Vol] 9.9 mg/dL Invalid Interpretation Code 8.7 - 10.4 mg/dL ADM SS Chloride [Moles/Vol] 112 mmol/L Invalid Interpretation Code 98 - 110 mEq/L ADM SS CO2 [Moles/Vol] 25 mmol/L Invalid Interpretation Code 22 - 32 mEq/L ADM SS Cobalamin (Vitamin B12) [Mass/Vol] 301 pg/mL Invalid Interpretation Code 211 - 911 pg/mL ADM SS Creatinine [Mass/Vol] 0.85 mg/dL Invalid Interpretation Code 0.50 - 1.20 mg/dL ADM SS Electrolyte Balance 2.0 mEq/L Invalid Interpretation Code 4.0 - 15.0 mEq/L ADM SS Eosinophils (Bld) [#/Vol] 0.4 103/mcL Invalid Interpretation Code 0.0 - 0.7 10^3/mcL Workflow SS Eosinophils/100 WBC (Bld) 4.2 % Invalid Interpretation Code 0.0 - 6.0 % Workflow SS Erythrocyte distribution width (RBC) [Ratio] 14.3 % Invalid Interpretation Code 11.5 - 15.5 % Workflow SS Ferritin [Mass/Vol] 48.0 ng/mL Invalid Interpretation Code 8.0 - 252.0 ng/mL ADM SS Folate [Mass/Vol] 9.92 ng/mL Invalid Interpretation Code 5.38 - 24.00 ng/mL ADM SS GFR/1.73 sq M.predicted among blacks MDRD (S/P/Bld) [Vol rate/Area] ml/min/1.73sqm Invalid Interpretation Code Chemistry S GFR/1.73 sq M.predicted among non-blacks MDRD (S/P/Bld) [Vol rate/Area] ml/min/1.73sqm Invalid Interpretation Code Chemistry S Globulin 3.1 G/dL Invalid Interpretation Code 1.5 - 3.8 G/dL ADM SS Glucose [Mass/Vol] 84 mg/dL Invalid Interpretation Code 70 - 110 mg/dL ADM SS Hematocrit (Bld) [Volume fraction] 40.8 % Invalid Interpretation Code 34.0 - 46.0 % Workflow SS Hemoglobin (Bld) [Mass/Vol] 13.4 G/dL Invalid Interpretation Code 12.0 - 16.0 G/dL Workflow SS Iron [Mass/Vol] 35 ug/dL Invalid Interpretation Code 50 - 170 mcg/dL ADM SS Iron binding capacity [Mass/Vol] 288 mcg/dL Invalid Interpretation Code 250 - 500 mcg/dL ADM SS Iron saturation [Mass fraction] 12 1 Invalid Interpretation Code ADM SS Lymphocytes (Bld) [#/Vol] 1.8 103/mcL Invalid Interpretation Code 0.9 - 4.3 10^3/mcL Workflow SS Lymphocytes/100 WBC (Bld) 20.6 % Invalid Interpretation Code 20.0 - 40.0 % Workflow SS Magnesium [Mass/Vol] 1.9 mg/dL Invalid Interpretation Code 1.6 - 2.4 mg/dL ADM SS MCH (RBC) [Entitic mass] 32.1 pg Invalid Interpretation Code 27.0 - 33.0 pg Workflow SS MCHC 32.8 G/dL Invalid Interpretation Code 32.0 - 36.0 G/dL Workflow SS MCV (RBC) [Entitic vol] 98.0 fL Invalid Interpretation Code 80.0 - 99.0 fL Workflow SS Monocytes (Bld) [#/Vol] 0.6 103/mcL Invalid Interpretation Code 0.1 - 1.4 10^3/mcL Workflow SS Monocytes/100 WBC (Bld) 6.3 % Invalid Interpretation Code 2.0 - 13.0 % Workflow SS Neutrophils (Bld) [#/Vol] 6.0 103/mcL Invalid Interpretation Code 2.3 - 8.1 10^3/mcL Workflow SS Neutrophils/100 WBC (Bld) 67.5 % Invalid Interpretation Code 50.0 - 75.0 % Workflow SS Phosphate [Mass/Vol] 3.1 mg/dL Invalid Interpretation Code 2.4 - 5.1 mg/dL ADM SS Platelet mean volume (Bld) [Entitic vol] 7.5 fL Invalid Interpretation Code 6.6 - 10.5 fL AH Workflow SS Platelets (Bld) [#/Vol] 396 103/mcL Invalid Interpretation Code 150 - 450 10^3/mcL AH Workflow SS Potassium [Moles/Vol] 3.8 mmol/L Invalid Interpretation Code 3.5 - 5.0 mEq/L AH ADM SS Protein [Mass/Vol] 6.9 G/dL Invalid Interpretation Code 5.7 - 8.2 G/dL AH ADM SS RBC (Bld) [#/Vol] 4.16 106/mcL Invalid Interpretation Code 4.10 - 5.30 10^6/mcL AH Workflow SS Sodium [Moles/Vol] 139 mmol/L Invalid Interpretation Code 136 - 145 mEq/L AH ADM SS Urea nitrogen [Mass/Vol] 11.0 mg/dL Invalid Interpretation Code 8.0 - 22.0 mg/dL AH ADM SS Urea nitrogen/Creatinine [Mass ratio] 12.9 ratio Invalid Interpretation Code 10.0 - 22.0 ratio AH ADM SS WBC (Bld) [#/Vol] 8.9 103/mcL Invalid Interpretation Code 4.5 - 10.8 10^3/mcL AH Workflow SS LABORATORYOrdered By: Gabriela Gabriel on 01-01-2023 Appearance (U) Cloudy *ABN* (01/01/23 1:18 PM) Invalid Interpretation Code Clear AH Auto Urine SS Bacteria LM.HPF (Urine sed) [#/Area] 4 /[HPF] Invalid Interpretation Code Negative/HP F AH Auto Urine SS Bilirubin Ql (U) Small *ABN* (01/01/23 1:18 PM) Invalid Interpretation Code Neg-Trace AH Auto Urine SS Calcium oxalate crystals LM.HPF (Urine sed) [#/Area] 2 /[HPF] Invalid Interpretation Code AH Auto Urine SS Color (U) Red *ABN* (01/01/23 1:18 PM) Invalid Interpretation Code AH Auto Urine SS Glucose Test strip (U) [Mass/Vol] Negative Invalid Interpretation Code Negativemg/ dL AH Auto Urine SS Hemoglobin Auto test strip (U) [Mass/Vol] Large *ABN* (01/01/23 1:18 PM) Invalid Interpretation Code Neg-Trace AH Auto Urine SS Ketones Ql (U) Negative Invalid Interpretation Code Neg-Tracemg /dL AH Auto Urine SS UA Leuk Est Large *ABN* (01/01/23 1:18 PM) Invalid Interpretation Code Negative AH Auto Urine SS UA Mucous 2+ /HPF Invalid Interpretation Code AH Auto Urine SS UA Nitrite Positive *ABN* (01/01/23 1:18 PM) Invalid Interpretation Code Negative AH Auto Urine SS UA pH 7.0 (01/01/23 1:18 PM) Invalid Interpretation Code 5.0 - 8.0 AH Auto Urine SS UA Protein >=1000 mg/dL Invalid Interpretation Code Negativemg/ dL AH Auto Urine SS UA RBC LOADED /HPF Invalid Interpretation Code 0-2/HPF AH Auto Urine SS UA Spec Grav >=1.030 *ABN* (01/01/23 1:18 PM) Invalid Interpretation Code 1.006-1.029 AH Auto Urine SS UA Specimen Type Catheter (01/01/23 1:18 PM) Invalid Interpretation Code AH Auto Urine SS UA Squam Epithelial 0-2 /HPF Invalid Interpretation Code 0-20/HPF AH Auto Urine SS UA Trip Rai Crystals 3+ /HPF Invalid Interpretation Code AH Auto Urine SS UA Urobilinogen 1.0 E.U./dL Invalid Interpretation Code 0.2-1.0E.U. /dL AH Auto Urine SS WBC LM.HPF (Urine sed) [#/Area] LOADED /HPF Invalid Interpretation Code 0-5/HPF AH Auto Urine SS LABORATORYOrdered By: Deshaun Fountain on 01-01-2023 Creatinine (U) [Mass/Vol] 194.8 mg/dL Invalid Interpretation Code ADM SS Protein (U) [Mass/Vol] 450.4 mg/dL Invalid Interpretation Code ADM SS U Ratio Prot/Creat 2.3 ratio Invalid Interpretation Code ADM SS Laboratory - Microbiology an d Antimicrobial susceptibilityOrdered By: [facility] on 01-01-2023 Bacteria identified Cx Nom (Bld) Culture has been received in lab and is no growth to date. Culture will be held for four weeks. [facility] No Panel Informationon 01-01 Culture Urine >100,000 cfu/ml Multiple bacterial morphotypes present. Probable Contamination. Suggest recollection if clinically indicated. [facility] Work Phone: Culture Urine >100,000 cfu/ml Multiple bacterial morphotypes present. Probable Contamination. Suggest recollection if clinically indicated. [facility] Work Phone: LABORATORYOrdered By: SYSTEM SYSTEM on 11-15-2022 Basophils (Bld) [#/Vol] 0.0 103/mcL Invalid Interpretation Code 0.0 - 0.3 10^3/mcL AH Workflow SS Basophils/100 WBC (Bld) 0.3 % Invalid Interpretation Code 0.0 - 2.5 % AH Workflow SS Creatinine [Mass/Vol] 0.80 mg/dL Invalid Interpretation Code 0.50 - 1.20 mg/dL AH ADM SS Eosinophils (Bld) [#/Vol] 0.4 103/mcL Invalid Interpretation Code 0.0 - 0.7 10^3/mcL AH Workflow SS Eosinophils/100 WBC (Bld) 4.7 % Invalid Interpretation Code 0.0 - 6.0 % AH Workflow SS Erythrocyte distribution width (RBC) [Ratio] 14.0 % Invalid Interpretation Code 11.5 - 15.5 % AH Workflow SS GFR/1.73 sq M.predicted among blacks MDRD (S/P/Bld) [Vol rate/Area] ml/min/1.73sqm Invalid Interpretation Code Chemistry S GFR/1.73 sq M.predicted among non-blacks MDRD (S/P/Bld) [Vol rate/Area] ml/min/1.73sqm Invalid Interpretation Code Chemistry S Hematocrit (Bld) [Volume fraction] 39.2 % Invalid Interpretation Code 34.0 - 46.0 % AH Workflow SS Hemoglobin (Bld) [Mass/Vol] 13.2 G/dL Invalid Interpretation Code 12.0 - 16.0 G/dL AH Workflow SS Lymphocytes (Bld) [#/Vol] 2.2 103/mcL Invalid Interpretation Code 0.9 - 4.3 10^3/mcL AH Workflow SS Lymphocytes/100 WBC (Bld) 27.9 % Invalid Interpretation Code 20.0 - 40.0 % AH Workflow SS MCH (RBC) [Entitic mass] 33.3 pg Invalid Interpretation Code 27.0 - 33.0 pg AH Workflow SS MCHC 33.6 G/dL Invalid Interpretation Code 32.0 - 36.0 G/dL AH Workflow SS MCV (RBC) [Entitic vol] 99.1 fL Invalid Interpretation Code 80.0 - 99.0 fL AH Workflow SS Monocytes (Bld) [#/Vol] 0.8 103/mcL Invalid Interpretation Code 0.1 - 1.4 10^3/mcL AH Workflow SS Monocytes/100 WBC (Bld) 10.0 % Invalid Interpretation Code 2.0 - 13.0 % AH Workflow SS Neutrophils (Bld) [#/Vol] 4.4 103/mcL Invalid Interpretation Code 2.3 - 8.1 10^3/mcL AH Workflow SS Neutrophils/100 WBC (Bld) 57.1 % Invalid Interpretation Code 50.0 - 75.0 % AH Workflow SS Platelet mean volume (Bld) [Entitic vol] 7.4 fL Invalid Interpretation Code 6.6 - 10.5 fL AH Workflow SS Platelets (Bld) [#/Vol] 380 103/mcL Invalid Interpretation Code 150 - 450 10^3/mcL AH Workflow SS RBC (Bld) [#/Vol] 3.96 106/mcL Invalid Interpretation Code 4.10 - 5.30 10^6/mcL AH Workflow SS WBC (Bld) [#/Vol] 7.7 103/mcL Invalid Interpretation Code 4.5 - 10.8 10^3/mcL AH Workflow SS LABORATORYOrdered By: Madyson Magallanes on 11-15-2022 INR Coag (PPP) [Relative time] 1.0 {INR} Invalid Interpretation Code AH Auto Coag SS PT Coag (PPP) [Time] 11.6 s Invalid Interpretation Code 9.0 - 14.9 seconds AH Auto Coag SS LABORATORYOrdered By: SYSTEM SYSTEM on 10-08-2022 Albumin BCP dye [Mass/Vol] 2.6 G/dL Invalid Interpretation Code 3.2 - 4.8 G/dL ADM SS Albumin/Globulin [Mass ratio] 1.1 {ratio} Invalid Interpretation Code 0.9 - 1.6 ratio AH ADM SS ALP [Catalytic activity/Vol] 56 U/L Invalid Interpretation Code 38 - 126 U/L AH ADM SS ALT No additional P-5'-P [Catalytic activity/Vol] 9 U/L Invalid Interpretation Code 10 - 49 U/L AH ADM SS AST [Catalytic activity/Vol] 23 U/L Invalid Interpretation Code 8 - 34 U/L AH ADM SS Basophils (Bld) [#/Vol] 0.1 103/mcL Invalid Interpretation Code 0.0 - 0.3 10^3/mcL AH Workflow SS Basophils/100 WBC (Bld) 0.9 % Invalid Interpretation Code 0.0 - 2.5 % AH Workflow SS Bilirubin [Mass/Vol] mg/dL Invalid Interpretation Code 0.20 - 1.20 mg/dL ADM SS Calcium [Mass/Vol] 8.5 mg/dL Invalid Interpretation Code 8.7 - 10.4 mg/dL ADM SS Chloride [Moles/Vol] 108 mmol/L Invalid Interpretation Code 98 - 110 mEq/L ADM SS CO2 [Moles/Vol] 29 mmol/L Invalid Interpretation Code 22 - 32 mEq/L ADM SS Creatinine [Mass/Vol] 0.71 mg/dL Invalid Interpretation Code 0.50 - 1.20 mg/dL ADM SS Electrolyte Balance 3.0 mEq/L Invalid Interpretation Code 4.0 - 15.0 mEq/L ADM SS Eosinophils (Bld) [#/Vol] 0.4 103/mcL Invalid Interpretation Code 0.0 - 0.7 10^3/mcL Workflow SS Eosinophils/100 WBC (Bld) 6.3 % Invalid Interpretation Code 0.0 - 6.0 % Workflow SS Erythrocyte distribution width (RBC) [Ratio] 14.7 % Invalid Interpretation Code 11.5 - 15.5 % Workflow SS GFR/1.73 sq M.predicted among blacks MDRD (S/P/Bld) [Vol rate/Area] ml/min/1.73sqm Invalid Interpretation Code Chemistry S GFR/1.73 sq M.predicted among non-blacks MDRD (S/P/Bld) [Vol rate/Area] ml/min/1.73sqm Invalid Interpretation Code Chemistry S Globulin 2.3 G/dL Invalid Interpretation Code 1.5 - 3.8 G/dL ADM SS Glucose [Mass/Vol] 83 mg/dL Invalid Interpretation Code 70 - 110 mg/dL ADM SS Hematocrit (Bld) [Volume fraction] 34.0 % Invalid Interpretation Code 34.0 - 46.0 % Workflow SS Hemoglobin (Bld) [Mass/Vol] 11.6 G/dL Invalid Interpretation Code 12.0 - 16.0 G/dL Workflow SS Lymphocytes (Bld) [#/Vol] 1.7 103/mcL Invalid Interpretation Code 0.9 - 4.3 10^3/mcL Workflow SS Lymphocytes/100 WBC (Bld) 29.6 % Invalid Interpretation Code 20.0 - 40.0 % Workflow SS Magnesium [Mass/Vol] 1.9 mg/dL Invalid Interpretation Code 1.6 - 2.4 mg/dL ADM SS MCH (RBC) [Entitic mass] 35.0 pg Invalid Interpretation Code 27.0 - 33.0 pg AH Workflow SS MCHC 34.0 G/dL Invalid Interpretation Code 32.0 - 36.0 G/dL AH Workflow SS MCV (RBC) [Entitic vol] 103.0 fL Invalid Interpretation Code 80.0 - 99.0 fL AH Workflow SS Monocytes (Bld) [#/Vol] 0.6 103/mcL Invalid Interpretation Code 0.1 - 1.4 10^3/mcL AH Workflow SS Monocytes/100 WBC (Bld) 11.1 % Invalid Interpretation Code 2.0 - 13.0 % AH Workflow SS Neutrophils (Bld) [#/Vol] 2.9 103/mcL Invalid Interpretation Code 2.3 - 8.1 10^3/mcL AH Workflow SS Neutrophils/100 WBC (Bld) 52.1 % Invalid Interpretation Code 50.0 - 75.0 % AH Workflow SS Phosphate [Mass/Vol] 3.4 mg/dL Invalid Interpretation Code 2.4 - 5.1 mg/dL ADM SS Platelet mean volume (Bld) [Entitic vol] 7.4 fL Invalid Interpretation Code 6.6 - 10.5 fL Workflow SS Platelets (Bld) [#/Vol] 332 103/mcL Invalid Interpretation Code 150 - 450 10^3/mcL AH Workflow SS Potassium [Moles/Vol] 4.0 mmol/L Invalid Interpretation Code 3.5 - 5.0 mEq/L ADM SS Comment on above: Result Comment: Spec imen slightly hemolyzed. Protein [Mass/Vol] 4.9 G/dL Invalid Interpretation Code 5.7 - 8.2 G/dL ADM SS RBC (Bld) [#/Vol] 3.30 106/mcL Invalid Interpretation Code 4.10 - 5.30 10^6/mcL Workflow SS Sodium [Moles/Vol] 140 mmol/L Invalid Interpretation Code 136 - 145 mEq/L ADM SS WBC (Bld) [#/Vol] 5.6 103/mcL Invalid Interpretation Code 4.5 - 10.8 10^3/mcL Workflow SS LABORATORYOrdered By: Radha ennis on 10-08-2022 Urea nitrogen [Mass/Vol] mg/dL Invalid Interpretation Code 8.0 - 22.0 mg/dL Chemistry S Urea nitrogen/Creatinine [Mass ratio] Unable to Calculate Invalid Interpretation Code 10.0 - 22.0 Chemistry S Comment on above: Result Comment: Unab le to calculate this test result accurately. Results used to calculate this test are outside the reportable range. LABORATORYOrdered By: SYSTEM SYSTEM on 10-07-2022 Albumin BCP dye [Mass/Vol] 2.8 G/dL Invalid Interpretation Code 3.2 - 4.8 G/dL ADM SS Albumin/Globulin [Mass ratio] 1.1 {ratio} Invalid Interpretation Code 0.9 - 1.6 ratio ADM SS ALP [Catalytic activity/Vol] 63 U/L Invalid Interpretation Code 38 - 126 U/L ADM SS ALT No additional P-5'-P [Catalytic activity/Vol] U/L 1 Invalid Interpretation Code 10 - 49 U/L ADM SS AST [Catalytic activity/Vol] 14 U/L Invalid Interpretation Code 8 - 34 U/L ADM SS Basophils (Bld) [#/Vol] 0.0 103/mcL Invalid Interpretation Code 0.0 - 0.3 10^3/mcL Workflow SS Basophils/100 WBC (Bld) 0.4 % Invalid Interpretation Code 0.0 - 2.5 % Workflow SS Bilirubin [Mass/Vol] mg/dL Invalid Interpretation Code 0.20 - 1.20 mg/dL ADM SS Calcium [Mass/Vol] 8.9 mg/dL Invalid Interpretation Code 8.7 - 10.4 mg/dL ADM SS Chloride [Moles/Vol] 107 mmol/L Invalid Interpretation Code 98 - 110 mEq/L ADM SS CO2 [Moles/Vol] 29 mmol/L Invalid Interpretation Code 22 - 32 mEq/L ADM SS Creatinine [Mass/Vol] 0.75 mg/dL Invalid Interpretation Code 0.50 - 1.20 mg/dL ADM SS Electrolyte Balance 5.0 mEq/L Invalid Interpretation Code 4.0 - 15.0 mEq/L ADM SS Eosinophils (Bld) [#/Vol] 0.4 103/mcL Invalid Interpretation Code 0.0 - 0.7 10^3/mcL Workflow SS Eosinophils/100 WBC (Bld) 6.7 % Invalid Interpretation Code 0.0 - 6.0 % Workflow SS Erythrocyte distribution width (RBC) [Ratio] 14.9 % Invalid Interpretation Code 11.5 - 15.5 % Workflow SS GFR/1.73 sq M.predicted among blacks MDRD (S/P/Bld) [Vol rate/Area] ml/min/1.73sqm Invalid Interpretation Code AH Chemistry S GFR/1.73 sq M.predicted among non-blacks MDRD (S/P/Bld) [Vol rate/Area] ml/min/1.73sqm Invalid Interpretation Code Chemistry S Globulin 2.5 G/dL Invalid Interpretation Code 1.5 - 3.8 G/dL ADM SS Glucose [Mass/Vol] 88 mg/dL Invalid Interpretation Code 70 - 110 mg/dL ADM SS Hematocrit (Bld) [Volume fraction] 36.4 % Invalid Interpretation Code 34.0 - 46.0 % AH Workflow SS Hemoglobin (Bld) [Mass/Vol] 12.1 G/dL Invalid Interpretation Code 12.0 - 16.0 G/dL Workflow SS Lymphocytes (Bld) [#/Vol] 1.7 103/mcL Invalid Interpretation Code 0.9 - 4.3 10^3/mcL Workflow SS Lymphocytes/100 WBC (Bld) 30.0 % Invalid Interpretation Code 20.0 - 40.0 % Workflow SS Magnesium [Mass/Vol] 2.0 mg/dL Invalid Interpretation Code 1.6 - 2.4 mg/dL ADM SS MCH (RBC) [Entitic mass] 34.1 pg Invalid Interpretation Code 27.0 - 33.0 pg AH Workflow SS MCHC 33.3 G/dL Invalid Interpretation Code 32.0 - 36.0 G/dL AH Workflow SS MCV (RBC) [Entitic vol] 102.2 fL Invalid Interpretation Code 80.0 - 99.0 fL Workflow SS Monocytes (Bld) [#/Vol] 0.7 103/mcL Invalid Interpretation Code 0.1 - 1.4 10^3/mcL AH Workflow SS Monocytes/100 WBC (Bld) 12.7 % Invalid Interpretation Code 2.0 - 13.0 % Workflow SS Neutrophils (Bld) [#/Vol] 2.9 103/mcL Invalid Interpretation Code 2.3 - 8.1 10^3/mcL AH Workflow SS Neutrophils/100 WBC (Bld) 50.2 % Invalid Interpretation Code 50.0 - 75.0 % Workflow SS Phosphate [Mass/Vol] 3.6 mg/dL Invalid Interpretation Code 2.4 - 5.1 mg/dL ADM SS Platelet mean volume (Bld) [Entitic vol] 6.8 fL Invalid Interpretation Code 6.6 - 10.5 fL AH Workflow SS Platelets (Bld) [#/Vol] 378 103/mcL Invalid Interpretation Code 150 - 450 10^3/mcL AH Workflow SS Potassium [Moles/Vol] 4.3 mmol/L Invalid Interpretation Code 3.5 - 5.0 mEq/L AH ADM SS Comment on above: Result Comment: Spec imen slightly hemolyzed. Protein [Mass/Vol] 5.3 G/dL Invalid Interpretation Code 5.7 - 8.2 G/dL ADM SS RBC (Bld) [#/Vol] 3.56 106/mcL Invalid Interpretation Code 4.10 - 5.30 10^6/mcL Workflow SS Sodium [Moles/Vol] 141 mmol/L Invalid Interpretation Code 136 - 145 mEq/L ADM SS Urea nitrogen [Mass/Vol] 6.0 mg/dL Invalid Interpretation Code 8.0 - 22.0 mg/dL ADM SS Urea nitrogen/Creatinine [Mass ratio] 8.0 ratio Invalid Interpretation Code 10.0 - 22.0 ratio AH ADM SS WBC (Bld) [#/Vol] 5.8 103/mcL Invalid Interpretation Code 4.5 - 10.8 10^3/mcL Workflow SS LABORATORYOrdered By: SYSTEM SYSTEM on 10-06-2022 Albumin BCP dye [Mass/Vol] 2.8 G/dL Invalid Interpretation Code 3.2 - 4.8 G/dL ADM SS Albumin/Globulin [Mass ratio] 1.2 {ratio} Invalid Interpretation Code 0.9 - 1.6 ratio ADM SS ALP [Catalytic activity/Vol] 65 U/L Invalid Interpretation Code 38 - 126 U/L ADM SS ALT No additional P-5'-P [Catalytic activity/Vol] U/L 1 Invalid Interpretation Code 10 - 49 U/L ADM SS AST [Catalytic activity/Vol] 15 U/L Invalid Interpretation Code 8 - 34 U/L ADM SS Basophils (Bld) [#/Vol] 0.1 103/mcL Invalid Interpretation Code 0.0 - 0.3 10^3/mcL AH Workflow SS Basophils/100 WBC (Bld) 1.3 % Invalid Interpretation Code 0.0 - 2.5 % AH Workflow SS Bilirubin [Mass/Vol] mg/dL Invalid Interpretation Code 0.20 - 1.20 mg/dL ADM SS Calcium [Mass/Vol] 8.8 mg/dL Invalid Interpretation Code 8.7 - 10.4 mg/dL ADM SS Chloride [Moles/Vol] 105 mmol/L Invalid Interpretation Code 98 - 110 mEq/L ADM SS CO2 [Moles/Vol] 32 mmol/L Invalid Interpretation Code 22 - 32 mEq/L ADM SS Creatinine [Mass/Vol] 0.77 mg/dL Invalid Interpretation Code 0.50 - 1.20 mg/dL ADM SS Electrolyte Balance 3.0 mEq/L Invalid Interpretation Code 4.0 - 15.0 mEq/L ADM SS Eosinophils (Bld) [#/Vol] 0.4 103/mcL Invalid Interpretation Code 0.0 - 0.7 10^3/mcL Workflow SS Eosinophils/100 WBC (Bld) 6.1 % Invalid Interpretation Code 0.0 - 6.0 % Workflow SS Erythrocyte distribution width (RBC) [Ratio] 15.0 % Invalid Interpretation Code 11.5 - 15.5 % Workflow SS GFR/1.73 sq M.predicted among blacks MDRD (S/P/Bld) [Vol rate/Area] ml/min/1.73sqm Invalid Interpretation Code Chemistry S GFR/1.73 sq M.predicted among non-blacks MDRD (S/P/Bld) [Vol rate/Area] ml/min/1.73sqm Invalid Interpretation Code Chemistry S Globulin 2.4 G/dL Invalid Interpretation Code 1.5 - 3.8 G/dL ADM SS Glucose [Mass/Vol] 104 mg/dL Invalid Interpretation Code 70 - 110 mg/dL ADM SS Hematocrit (Bld) [Volume fraction] 36.8 % Invalid Interpretation Code 34.0 - 46.0 % Workflow SS Hemoglobin (Bld) [Mass/Vol] 12.2 G/dL Invalid Interpretation Code 12.0 - 16.0 G/dL Workflow SS Lymphocytes (Bld) [#/Vol] 1.5 103/mcL Invalid Interpretation Code 0.9 - 4.3 10^3/mcL Workflow SS Lymphocytes/100 WBC (Bld) 25.5 % Invalid Interpretation Code 20.0 - 40.0 % Workflow SS Magnesium [Mass/Vol] 2.0 mg/dL Invalid Interpretation Code 1.6 - 2.4 mg/dL ADM SS MCH (RBC) [Entitic mass] 34.1 pg Invalid Interpretation Code 27.0 - 33.0 pg Workflow SS MCHC 33.3 G/dL Invalid Interpretation Code 32.0 - 36.0 G/dL Workflow SS MCV (RBC) [Entitic vol] 102.6 fL Invalid Interpretation Code 80.0 - 99.0 fL Workflow SS Monocytes (Bld) [#/Vol] 0.7 103/mcL Invalid Interpretation Code 0.1 - 1.4 10^3/mcL AH Workflow SS Monocytes/100 WBC (Bld) 12.4 % Invalid Interpretation Code 2.0 - 13.0 % Workflow SS Neutrophils (Bld) [#/Vol] 3.2 103/mcL Invalid Interpretation Code 2.3 - 8.1 10^3/mcL AH Workflow SS Neutrophils/100 WBC (Bld) 54.7 % Invalid Interpretation Code 50.0 - 75.0 % Workflow SS Phosphate [Mass/Vol] 3.2 mg/dL Invalid Interpretation Code 2.4 - 5.1 mg/dL ADM SS Platelet mean volume (Bld) [Entitic vol] 6.7 fL Invalid Interpretation Code 6.6 - 10.5 fL Workflow SS Platelets (Bld) [#/Vol] 347 103/mcL Invalid Interpretation Code 150 - 450 10^3/mcL Workflow SS Potassium [Moles/Vol] 3.8 mmol/L Invalid Interpretation Code 3.5 - 5.0 mEq/L ADM SS Comment on above: Result Comment: Spec imen slightly hemolyzed. Protein [Mass/Vol] 5.2 G/dL Invalid Interpretation Code 5.7 - 8.2 G/dL ADM SS RBC (Bld) [#/Vol] 3.59 106/mcL Invalid Interpretation Code 4.10 - 5.30 10^6/mcL Workflow SS Sodium [Moles/Vol] 140 mmol/L Invalid Interpretation Code 136 - 145 mEq/L ADM SS Urea nitrogen [Mass/Vol] 5.0 mg/dL Invalid Interpretation Code 8.0 - 22.0 mg/dL ADM SS Urea nitrogen/Creatinine [Mass ratio] 6.5 ratio Invalid Interpretation Code 10.0 - 22.0 ratio ADM SS WBC (Bld) [#/Vol] 5.9 103/mcL Invalid Interpretation Code 4.5 - 10.8 10^3/mcL AH Workflow SS LABORATORYOrdered By: Gabriela Gabriel on 10-02-2022 Appearance (U) Clear (10/02/22 8:07 AM) Invalid Interpretation Code Clear AH Auto Urine SS Bacteria LM.HPF (Urine sed) [#/Area] 2 /[HPF] Invalid Interpretation Code Negative/HP F AH Auto Urine SS Bilirubin Ql (U) Negative (10/02/22 8:07 AM) Invalid Interpretation Code Neg-Trace AH Auto Urine SS Color (U) Yellow (10/02/22 8:07 AM) Invalid Interpretation Code AH Auto Urine SS Glucose Test strip (U) [Mass/Vol] Negative Invalid Interpretation Code Negativemg/ dL AH Auto Urine SS Hemoglobin Auto test strip (U) [Mass/Vol] Moderate *ABN* (10/02/22 8:07 AM) Invalid Interpretation Code Neg-Trace AH Auto Urine SS Ketones Ql (U) 15 mg/dL Invalid Interpretation Code Neg-Tracemg /dL AH Auto Urine SS UA Hyal Cast Rare /LPF Invalid Interpretation Code AH Auto Urine SS UA Leuk Est Moderate *ABN* (10/02/22 8:07 AM) Invalid Interpretation Code Negative AH Auto Urine SS UA Mucous 2+ /HPF Invalid Interpretation Code AH Auto Urine SS UA Nitrite Negative (10/02/22 8:07 AM) Invalid Interpretation Code Negative AH Auto Urine SS UA pH 5.5 (10/02/22 8:07 AM) Invalid Interpretation Code 5.0 - 8.0 AH Auto Urine SS UA Protein 100 mg/dL Invalid Interpretation Code Negativemg/ dL AH Auto Urine SS UA RBC 25-50 /HPF Invalid Interpretation Code 0-2/HPF AH Auto Urine SS UA Spec Grav 1.010 (10/02/22 8:07 AM) Invalid Interpretation Code 1.006-1.029 AH Auto Urine SS UA Specimen Type Clean Catch (10/02/22 8:07 AM) Invalid Interpretation Code AH Auto Urine SS UA Squam Epithelial 3-5 /HPF Invalid Interpretation Code 0-20/HPF AH Auto Urine SS UA Urobilinogen 0.2 E.U./dL Invalid Interpretation Code 0.2-1.0E.U. /dL AH Auto Urine SS WBC LM.HPF (Urine sed) [#/Area] 25-50 /HPF Invalid Interpretation Code 0-5/HPF AH Auto Urine SS No Panel Informationon 10-02 Culture Urine No growth at 48 hours. [facility] Work Phone: LABORATORYOrdered By: Alicia Gardiner on 10-01-2022 Appearance (U) Turbid *ABN* (10/01/22 2:35 AM) Invalid Interpretation Code Clear AH Auto Urine SS Bilirubin Ql (U) Negative (10/01/22 2:35 AM) Invalid Interpretation Code Neg-Trace AH Auto Urine SS Color (U) Yellow (10/01/22 2:35 AM) Invalid Interpretation Code AH Auto Urine SS Glucose Test strip (U) [Mass/Vol] Negative Invalid Interpretation Code Negativemg/ dL AH Auto Urine SS Hemoglobin Auto test strip (U) [Mass/Vol] Large *ABN* (10/01/22 2:35 AM) Invalid Interpretation Code Neg-Trace AH Auto Urine SS Ketones Ql (U) Trace mg/dL Invalid Interpretation Code Neg-Tracemg /dL AH Auto Urine SS UA Leuk Est Large *ABN* (10/01/22 2:35 AM) Invalid Interpretation Code Negative AH Auto Urine SS UA Nitrite Negative (10/01/22 2:35 AM) Invalid Interpretation Code Negative AH Auto Urine SS UA pH 6.0 (10/01/22 2:35 AM) Invalid Interpretation Code 5.0 - 8.0 AH Auto Urine SS UA Protein >=1000 mg/dL Invalid Interpretation Code Negativemg/ dL AH Auto Urine SS UA Spec Grav 1.020 (10/01/22 2:35 AM) Invalid Interpretation Code 1.006-1.029 AH Auto Urine SS UA Specimen Type Catheter (10/01/22 2:35 AM) Invalid Interpretation Code AH Auto Urine SS UA Urobilinogen 1.0 E.U./dL Invalid Interpretation Code 0.2-1.0E.U. /dL AH Auto Urine SS LABORATORYOrdered By: Aura Quintana on 10-01-2022 Bacteria LM.HPF (Urine sed) [#/Area] 2 /[HPF] Invalid Interpretation Code Negative/HP F AH Auto Urine SS Crystals.amorphous LM.HPF (Urine sed) [#/Area] 1 /[HPF] Invalid Interpretation Code AH Auto Urine SS RBC.non-dysmorphic LM Ql (Urine sed) 10-20 /HPF Invalid Interpretation Code AH Auto Urine SS UA Mucous 2+ /HPF Invalid Interpretation Code AH Auto Urine SS UA RBC 10-20 /HPF Invalid Interpretation Code 0-2/HPF AH Auto Urine SS UA Squam Epithelial 0-2 /HPF Invalid Interpretation Code 0-20/HPF AH Auto Urine SS WBC LM.HPF (Urine sed) [#/Area] LOADED /HPF Invalid Interpretation Code 0-5/HPF AH Auto Urine SS LABORATORYOrdered By: SYSTEM SYSTEM on 09-30-2022 Monocyte distribution width Auto (Bld) [Entitic vol] 14.85 Invalid Interpretation Code 0.00 - 20.00 AH Workflow SS Comment on above: Result Comment: For ED adult patients suspected of sepsis, MDW<=20.0 does not rule out sepsis or risk of sepsis Laboratory - Microbiology an d Antimicrobial susceptibilityOrdered By: [facility] on 09-30-2022 Bacteria identified Cx Nom (Bld) Culture has been received in lab and is no growth to date. Culture will be held for four weeks. [facility] No Panel Informationon 09-30 Culture Urine >100,000 cfu/ml Mult iple bacterial morphotypes present. Probable Contamination. Suggest recollection if clinically indicated. [facility] Work Phone: LABORATORYOrdered By: SYSTEM SYSTEM on 09-27-2022 Albumin BCP dye [Mass/Vol] 4.4 G/dL Invalid Interpretation Code 3.2 - 4.8 G/dL AH ADM SS Albumin/Globulin [Mass ratio] 1.4 {ratio} Invalid Interpretation Code 0.9 - 1.6 ratio AH ADM SS ALP [Catalytic activity/Vol] 83 U/L Invalid Interpretation Code 38 - 126 U/L AH ADM SS ALT No additional P-5'-P [Catalytic activity/Vol] U/L 1 Invalid Interpretation Code 10 - 49 U/L AH ADM SS AST [Catalytic activity/Vol] 14 U/L Invalid Interpretation Code 8 - 34 U/L AH ADM SS Basophils (Bld) [#/Vol] 0.1 103/mcL Invalid Interpretation Code 0.0 - 0.3 10^3/mcL AH Workflow SS Basophils/100 WBC (Bld) 1.3 % Invalid Interpretation Code 0.0 - 2.5 % AH Workflow SS Bilirubin [Mass/Vol] 0.30 mg/dL Invalid Interpretation Code 0.20 - 1.20 mg/dL AH ADM SS Calcium [Mass/Vol] 9.7 mg/dL Invalid Interpretation Code 8.7 - 10.4 mg/dL ADM SS Chloride [Moles/Vol] 103 mmol/L Invalid Interpretation Code 98 - 110 mEq/L ADM SS CO2 [Moles/Vol] 25 mmol/L Invalid Interpretation Code 22 - 32 mEq/L ADM SS Creatinine [Mass/Vol] 0.78 mg/dL Invalid Interpretation Code 0.50 - 1.20 mg/dL ADM SS Electrolyte Balance 8.0 mEq/L Invalid Interpretation Code 4.0 - 15.0 mEq/L ADM SS Eosinophils (Bld) [#/Vol] 0.2 103/mcL Invalid Interpretation Code 0.0 - 0.7 10^3/mcL Workflow SS Eosinophils/100 WBC (Bld) 2.0 % Invalid Interpretation Code 0.0 - 6.0 % Workflow SS Erythrocyte distribution width (RBC) [Ratio] 15.2 % Invalid Interpretation Code 11.5 - 15.5 % Workflow SS GFR/1.73 sq M.predicted among blacks MDRD (S/P/Bld) [Vol rate/Area] ml/min/1.73sqm Invalid Interpretation Code ADM SS GFR/1.73 sq M.predicted among non-blacks MDRD (S/P/Bld) [Vol rate/Area] ml/min/1.73sqm Invalid Interpretation Code ADM SS Globulin 3.1 G/dL Invalid Interpretation Code 1.5 - 3.8 G/dL ADM SS Glucose [Mass/Vol] 131 mg/dL Invalid Interpretation Code 70 - 110 mg/dL ADM SS Hematocrit (Bld) [Volume fraction] 43.5 % Invalid Interpretation Code 34.0 - 46.0 % Workflow SS Hemoglobin (Bld) [Mass/Vol] 14.6 G/dL Invalid Interpretation Code 12.0 - 16.0 G/dL Workflow SS Lymphocytes (Bld) [#/Vol] 1.8 103/mcL Invalid Interpretation Code 0.9 - 4.3 10^3/mcL Workflow SS Lymphocytes/100 WBC (Bld) 18.4 % Invalid Interpretation Code 20.0 - 40.0 % Workflow SS MCH (RBC) [Entitic mass] 34.0 pg Invalid Interpretation Code 27.0 - 33.0 pg Workflow SS MCHC 33.5 G/dL Invalid Interpretation Code 32.0 - 36.0 G/dL AH Workflow SS MCV (RBC) [Entitic vol] 101.5 fL Invalid Interpretation Code 80.0 - 99.0 fL AH Workflow SS Monocyte distribution width Auto (Bld) [Entitic vol] 16.21 Invalid Interpretation Code 0.00 - 20.00 AH Workflow SS Comment on above: Result Comment: For ED adult patients suspected of sepsis, MDW<=20.0 does not rule out sepsis or risk of sepsis Monocytes (Bld) [#/Vol] 0.8 103/mcL Invalid Interpretation Code 0.1 - 1.4 10^3/mcL AH Workflow SS Monocytes/100 WBC (Bld) 7.8 % Invalid Interpretation Code 2.0 - 13.0 % AH Workflow SS Neutrophils (Bld) [#/Vol] 6.8 103/mcL Invalid Interpretation Code 2.3 - 8.1 10^3/mcL AH Workflow SS Neutrophils/100 WBC (Bld) 70.5 % Invalid Interpretation Code 50.0 - 75.0 % AH Workflow SS Platelet mean volume (Bld) [Entitic vol] 6.7 fL Invalid Interpretation Code 6.6 - 10.5 fL AH Workflow SS Platelets (Bld) [#/Vol] 358 103/mcL Invalid Interpretation Code 150 - 450 10^3/mcL AH Workflow SS Potassium [Moles/Vol] 3.8 mmol/L Invalid Interpretation Code 3.5 - 5.0 mEq/L AH ADM SS Protein [Mass/Vol] 7.5 G/dL Invalid Interpretation Code 5.7 - 8.2 G/dL AH ADM SS RBC (Bld) [#/Vol] 4.29 106/mcL Invalid Interpretation Code 4.10 - 5.30 10^6/mcL AH Workflow SS Sodium [Moles/Vol] 136 mmol/L Invalid Interpretation Code 136 - 145 mEq/L ADM SS Urea nitrogen [Mass/Vol] 12.0 mg/dL Invalid Interpretation Code 8.0 - 22.0 mg/dL AH ADM SS Urea nitrogen/Creatinine [Mass ratio] 15.4 ratio Invalid Interpretation Code 10.0 - 22.0 ratio AH ADM SS WBC (Bld) [#/Vol] 9.6 103/mcL Invalid Interpretation Code 4.5 - 10.8 10^3/mcL AH Workflow SS LABORATORYOrdered By: SYSTEM SYSTEM on 08-16-2022 Albumin BCP dye [Mass/Vol] 2.9 G/dL Invalid Interpretation Code 3.2 - 4.8 G/dL ADM SS Albumin/Globulin [Mass ratio] 1.2 {ratio} Invalid Interpretation Code 0.9 - 1.6 ratio ADM SS ALP [Catalytic activity/Vol] 63 U/L Invalid Interpretation Code 38 - 126 U/L ADM SS ALT No additional P-5'-P [Catalytic activity/Vol] U/L 1 Invalid Interpretation Code 10 - 49 U/L ADM SS AST [Catalytic activity/Vol] 11 U/L Invalid Interpretation Code 8 - 34 U/L ADM SS Basophils (Bld) [#/Vol] 0.0 103/mcL Invalid Interpretation Code 0.0 - 0.3 10^3/mcL Workflow SS Basophils/100 WBC (Bld) 0.6 % Invalid Interpretation Code 0.0 - 2.5 % Workflow SS Bilirubin [Mass/Vol] 0.20 mg/dL Invalid Interpretation Code 0.20 - 1.20 mg/dL ADM SS Calcium [Mass/Vol] 8.7 mg/dL Invalid Interpretation Code 8.7 - 10.4 mg/dL ADM SS Chloride [Moles/Vol] 108 mmol/L Invalid Interpretation Code 98 - 110 mEq/L ADM SS CO2 [Moles/Vol] 25 mmol/L Invalid Interpretation Code 22 - 32 mEq/L ADM SS Creatinine [Mass/Vol] 0.85 mg/dL Invalid Interpretation Code 0.50 - 1.20 mg/dL ADM SS Electrolyte Balance 6.0 mEq/L Invalid Interpretation Code 4.0 - 15.0 mEq/L ADM SS Eosinophils (Bld) [#/Vol] 0.7 103/mcL Invalid Interpretation Code 0.0 - 0.7 10^3/mcL Workflow SS Eosinophils/100 WBC (Bld) 11.8 % Invalid Interpretation Code 0.0 - 6.0 % Workflow SS Erythrocyte distribution width (RBC) [Ratio] 15.4 % Invalid Interpretation Code 11.5 - 15.5 % Workflow SS GFR/1.73 sq M.predicted among blacks MDRD (S/P/Bld) [Vol rate/Area] ml/min/1.73sqm Invalid Interpretation Code Chemistry S GFR/1.73 sq M.predicted among non-blacks MDRD (S/P/Bld) [Vol rate/Area] ml/min/1.73sqm Invalid Interpretation Code Chemistry S Globulin 2.4 G/dL Invalid Interpretation Code 1.5 - 3.8 G/dL ADM SS Glucose [Mass/Vol] 83 mg/dL Invalid Interpretation Code 70 - 110 mg/dL ADM SS Hematocrit (Bld) [Volume fraction] 37.0 % Invalid Interpretation Code 34.0 - 46.0 % Workflow SS Hemoglobin (Bld) [Mass/Vol] 12.4 G/dL Invalid Interpretation Code 12.0 - 16.0 G/dL Workflow SS Lymphocytes (Bld) [#/Vol] 1.5 103/mcL Invalid Interpretation Code 0.9 - 4.3 10^3/mcL Workflow SS Lymphocytes/100 WBC (Bld) 27.0 % Invalid Interpretation Code 20.0 - 40.0 % Workflow SS Magnesium [Mass/Vol] 2.3 mg/dL Invalid Interpretation Code 1.6 - 2.4 mg/dL ADM SS MCH (RBC) [Entitic mass] 33.7 pg Invalid Interpretation Code 27.0 - 33.0 pg Workflow SS MCHC 33.5 G/dL Invalid Interpretation Code 32.0 - 36.0 G/dL Workflow SS MCV (RBC) [Entitic vol] 100.8 fL Invalid Interpretation Code 80.0 - 99.0 fL Workflow SS Monocytes (Bld) [#/Vol] 0.7 103/mcL Invalid Interpretation Code 0.1 - 1.4 10^3/mcL Workflow SS Monocytes/100 WBC (Bld) 11.7 % Invalid Interpretation Code 2.0 - 13.0 % Workflow SS Neutrophils (Bld) [#/Vol] 2.7 103/mcL Invalid Interpretation Code 2.3 - 8.1 10^3/mcL Workflow SS Neutrophils/100 WBC (Bld) 48.9 % Invalid Interpretation Code 50.0 - 75.0 % Workflow SS Phosphate [Mass/Vol] 2.6 mg/dL Invalid Interpretation Code 2.4 - 5.1 mg/dL ADM SS Platelet mean volume (Bld) [Entitic vol] 6.6 fL Invalid Interpretation Code 6.6 - 10.5 fL Workflow SS Platelets (Bld) [#/Vol] 393 103/mcL Invalid Interpretation Code 150 - 450 10^3/mcL Workflow SS Potassium [Moles/Vol] 3.7 mmol/L Invalid Interpretation Code 3.5 - 5.0 mEq/L ADM SS Protein [Mass/Vol] 5.3 G/dL Invalid Interpretation Code 5.7 - 8.2 G/dL AH ADM SS RBC (Bld) [#/Vol] 3.67 106/mcL Invalid Interpretation Code 4.10 - 5.30 10^6/mcL AH Workflow SS Sodium [Moles/Vol] 139 mmol/L Invalid Interpretation Code 136 - 145 mEq/L ADM SS Urea nitrogen [Mass/Vol] 7.0 mg/dL Invalid Interpretation Code 8.0 - 22.0 mg/dL AH ADM SS Urea nitrogen/Creatinine [Mass ratio] 8.2 ratio Invalid Interpretation Code 10.0 - 22.0 ratio AH ADM SS WBC (Bld) [#/Vol] 5.6 103/mcL Invalid Interpretation Code 4.5 - 10.8 10^3/mcL Workflow SS LABORATORYOrdered By: SYSTEM SYSTEM on 08-15-2022 Albumin BCP dye [Mass/Vol] 2.8 G/dL Invalid Interpretation Code 3.2 - 4.8 G/dL ADM SS Albumin/Globulin [Mass ratio] 1.1 {ratio} Invalid Interpretation Code 0.9 - 1.6 ratio ADM SS ALP [Catalytic activity/Vol] 64 U/L Invalid Interpretation Code 38 - 126 U/L ADM SS ALT No additional P-5'-P [Catalytic activity/Vol] U/L 1 Invalid Interpretation Code 10 - 49 U/L AH ADM SS AST [Catalytic activity/Vol] 11 U/L Invalid Interpretation Code 8 - 34 U/L ADM SS Basophils (Bld) [#/Vol] 0.1 103/mcL Invalid Interpretation Code 0.0 - 0.3 10^3/mcL Workflow SS Basophils/100 WBC (Bld) 1.3 % Invalid Interpretation Code 0.0 - 2.5 % Workflow SS Bilirubin [Mass/Vol] 0.20 mg/dL Invalid Interpretation Code 0.20 - 1.20 mg/dL AH ADM SS Calcium [Mass/Vol] 8.6 mg/dL Invalid Interpretation Code 8.7 - 10.4 mg/dL ADM SS Chloride [Moles/Vol] 109 mmol/L Invalid Interpretation Code 98 - 110 mEq/L ADM SS CO2 [Moles/Vol] 22 mmol/L Invalid Interpretation Code 22 - 32 mEq/L ADM SS Creatinine [Mass/Vol] 0.80 mg/dL Invalid Interpretation Code 0.50 - 1.20 mg/dL ADM SS Electrolyte Balance 7.0 mEq/L Invalid Interpretation Code 4.0 - 15.0 mEq/L ADM SS Eosinophils (Bld) [#/Vol] 0.7 103/mcL Invalid Interpretation Code 0.0 - 0.7 10^3/mcL AH Workflow SS Eosinophils/100 WBC (Bld) 9.8 % Invalid Interpretation Code 0.0 - 6.0 % Workflow SS Erythrocyte distribution width (RBC) [Ratio] 15.2 % Invalid Interpretation Code 11.5 - 15.5 % Workflow SS GFR/1.73 sq M.predicted among blacks MDRD (S/P/Bld) [Vol rate/Area] ml/min/1.73sqm Invalid Interpretation Code Chemistry S GFR/1.73 sq M.predicted among non-blacks MDRD (S/P/Bld) [Vol rate/Area] ml/min/1.73sqm Invalid Interpretation Code Chemistry S Globulin 2.5 G/dL Invalid Interpretation Code 1.5 - 3.8 G/dL ADM SS Glucose [Mass/Vol] 76 mg/dL Invalid Interpretation Code 70 - 110 mg/dL ADM SS Hematocrit (Bld) [Volume fraction] 35.9 % Invalid Interpretation Code 34.0 - 46.0 % Workflow SS Hemoglobin (Bld) [Mass/Vol] 12.2 G/dL Invalid Interpretation Code 12.0 - 16.0 G/dL Workflow SS Lymphocytes (Bld) [#/Vol] 1.6 103/mcL Invalid Interpretation Code 0.9 - 4.3 10^3/mcL Workflow SS Lymphocytes/100 WBC (Bld) 22.8 % Invalid Interpretation Code 20.0 - 40.0 % Workflow SS Magnesium [Mass/Vol] 2.1 mg/dL Invalid Interpretation Code 1.6 - 2.4 mg/dL ADM SS MCH (RBC) [Entitic mass] 34.1 pg Invalid Interpretation Code 27.0 - 33.0 pg Workflow SS MCHC 33.9 G/dL Invalid Interpretation Code 32.0 - 36.0 G/dL Workflow SS MCV (RBC) [Entitic vol] 100.5 fL Invalid Interpretation Code 80.0 - 99.0 fL Workflow SS Monocytes (Bld) [#/Vol] 0.8 103/mcL Invalid Interpretation Code 0.1 - 1.4 10^3/mcL Workflow SS Monocytes/100 WBC (Bld) 10.9 % Invalid Interpretation Code 2.0 - 13.0 % Workflow SS Neutrophils (Bld) [#/Vol] 3.8 103/mcL Invalid Interpretation Code 2.3 - 8.1 10^3/mcL Workflow SS Neutrophils/100 WBC (Bld) 55.2 % Invalid Interpretation Code 50.0 - 75.0 % Workflow SS Phosphate [Mass/Vol] 2.4 mg/dL Invalid Interpretation Code 2.4 - 5.1 mg/dL ADM SS Platelet mean volume (Bld) [Entitic vol] 6.5 fL Invalid Interpretation Code 6.6 - 10.5 fL Workflow SS Platelets (Bld) [#/Vol] 382 103/mcL Invalid Interpretation Code 150 - 450 10^3/mcL Workflow SS Potassium [Moles/Vol] 3.8 mmol/L Invalid Interpretation Code 3.5 - 5.0 mEq/L ADM SS Protein [Mass/Vol] 5.3 G/dL Invalid Interpretation Code 5.7 - 8.2 G/dL ADM SS RBC (Bld) [#/Vol] 3.57 106/mcL Invalid Interpretation Code 4.10 - 5.30 10^6/mcL Workflow SS Sodium [Moles/Vol] 138 mmol/L Invalid Interpretation Code 136 - 145 mEq/L ADM SS Urea nitrogen [Mass/Vol] 5.0 mg/dL Invalid Interpretation Code 8.0 - 22.0 mg/dL ADM SS Urea nitrogen/Creatinine [Mass ratio] 6.2 ratio Invalid Interpretation Code 10.0 - 22.0 ratio AH ADM SS WBC (Bld) [#/Vol] 6.9 103/mcL Invalid Interpretation Code 4.5 - 10.8 10^3/mcL Workflow SS LABORATORYOrdered By: SYSTEM SYSTEM on 08-14-2022 Albumin BCP dye [Mass/Vol] 2.7 G/dL Invalid Interpretation Code 3.2 - 4.8 G/dL ADM SS Albumin/Globulin [Mass ratio] 1.1 {ratio} Invalid Interpretation Code 0.9 - 1.6 ratio ADM SS ALP [Catalytic activity/Vol] 61 U/L Invalid Interpretation Code 38 - 126 U/L ADM SS ALT No additional P-5'-P [Catalytic activity/Vol] U/L 1 Invalid Interpretation Code 10 - 49 U/L ADM SS AST [Catalytic activity/Vol] 10 U/L Invalid Interpretation Code 8 - 34 U/L ADM SS Basophils (Bld) [#/Vol] 0.1 103/mcL Invalid Interpretation Code 0.0 - 0.3 10^3/mcL AH Workflow SS Basophils/100 WBC (Bld) 1.2 % Invalid Interpretation Code 0.0 - 2.5 % Workflow SS Bilirubin [Mass/Vol] 0.20 mg/dL Invalid Interpretation Code 0.20 - 1.20 mg/dL ADM SS Calcium [Mass/Vol] 8.5 mg/dL Invalid Interpretation Code 8.7 - 10.4 mg/dL ADM SS Chloride [Moles/Vol] 110 mmol/L Invalid Interpretation Code 98 - 110 mEq/L ADM SS CO2 [Moles/Vol] 25 mmol/L Invalid Interpretation Code 22 - 32 mEq/L ADM SS Creatinine [Mass/Vol] 0.86 mg/dL Invalid Interpretation Code 0.50 - 1.20 mg/dL ADM SS Electrolyte Balance 5.0 mEq/L Invalid Interpretation Code 4.0 - 15.0 mEq/L ADM SS Eosinophils (Bld) [#/Vol] 0.7 103/mcL Invalid Interpretation Code 0.0 - 0.7 10^3/mcL Workflow SS Eosinophils/100 WBC (Bld) 11.8 % Invalid Interpretation Code 0.0 - 6.0 % Workflow SS Erythrocyte distribution width (RBC) [Ratio] 15.0 % Invalid Interpretation Code 11.5 - 15.5 % Workflow SS GFR/1.73 sq M.predicted among blacks MDRD (S/P/Bld) [Vol rate/Area] ml/min/1.73sqm Invalid Interpretation Code Chemistry S GFR/1.73 sq M.predicted among non-blacks MDRD (S/P/Bld) [Vol rate/Area] ml/min/1.73sqm Invalid Interpretation Code Chemistry S Globulin 2.4 G/dL Invalid Interpretation Code 1.5 - 3.8 G/dL ADM SS Glucose [Mass/Vol] 84 mg/dL Invalid Interpretation Code 70 - 110 mg/dL ADM SS Hematocrit (Bld) [Volume fraction] 35.2 % Invalid Interpretation Code 34.0 - 46.0 % AH Workflow SS Hemoglobin (Bld) [Mass/Vol] 11.8 G/dL Invalid Interpretation Code 12.0 - 16.0 G/dL AH Workflow SS Lymphocytes (Bld) [#/Vol] 1.6 103/mcL Invalid Interpretation Code 0.9 - 4.3 10^3/mcL AH Workflow SS Lymphocytes/100 WBC (Bld) 26.7 % Invalid Interpretation Code 20.0 - 40.0 % AH Workflow SS Magnesium [Mass/Vol] 2.1 mg/dL Invalid Interpretation Code 1.6 - 2.4 mg/dL AH ADM SS MCH (RBC) [Entitic mass] 33.5 pg Invalid Interpretation Code 27.0 - 33.0 pg AH Workflow SS MCHC 33.5 G/dL Invalid Interpretation Code 32.0 - 36.0 G/dL AH Workflow SS MCV (RBC) [Entitic vol] 100.1 fL Invalid Interpretation Code 80.0 - 99.0 fL AH Workflow SS Monocytes (Bld) [#/Vol] 0.7 103/mcL Invalid Interpretation Code 0.1 - 1.4 10^3/mcL AH Workflow SS Monocytes/100 WBC (Bld) 12.6 % Invalid Interpretation Code 2.0 - 13.0 % AH Workflow SS Neutrophils (Bld) [#/Vol] 2.8 103/mcL Invalid Interpretation Code 2.3 - 8.1 10^3/mcL AH Workflow SS Neutrophils/100 WBC (Bld) 47.7 % Invalid Interpretation Code 50.0 - 75.0 % AH Workflow SS Phosphate [Mass/Vol] 2.9 mg/dL Invalid Interpretation Code 2.4 - 5.1 mg/dL ADM SS Platelet mean volume (Bld) [Entitic vol] 6.5 fL Invalid Interpretation Code 6.6 - 10.5 fL AH Workflow SS Platelets (Bld) [#/Vol] 364 103/mcL Invalid Interpretation Code 150 - 450 10^3/mcL AH Workflow SS Potassium [Moles/Vol] 3.6 mmol/L Invalid Interpretation Code 3.5 - 5.0 mEq/L ADM SS Protein [Mass/Vol] 5.1 G/dL Invalid Interpretation Code 5.7 - 8.2 G/dL ADM SS RBC (Bld) [#/Vol] 3.51 106/mcL Invalid Interpretation Code 4.10 - 5.30 10^6/mcL AH Workflow SS Sodium [Moles/Vol] 140 mmol/L Invalid Interpretation Code 136 - 145 mEq/L AH ADM SS WBC (Bld) [#/Vol] 5.9 103/mcL Invalid Interpretation Code 4.5 - 10.8 10^3/mcL AH Workflow SS LABORATORYOrdered By: Radha ennis on 08-14-2022 Urea nitrogen [Mass/Vol] mg/dL Invalid Interpretation Code 8.0 - 22.0 mg/dL Chemistry S Urea nitrogen/Creatinine [Mass ratio] Unable to Calculate Invalid Interpretation Code 10.0 - 22.0 Chemistry S Comment on above: Result Comment: Unab le to calculate this test result accurately. Results used to calculate this test are outside the reportable range. AMIKACIN:SUSC:PT:ISOLATE:ORD QN:MICon 08-09-2022 Amikacin AN ALILIA [Susc] >100,000 cfu/ml Escherichia coli ESBL >100,000 cfu/ml Escherichia coli ESBL #2 Extended-Spectrum B-Lactamase isolate may be clinically resistant to therapy with Penicillins, Cephalosporinsor Aztreonam despite apparent in vitro susceptibility to some of these agents. Use of Imipenem is currently restricted to Infectious Disease /Intensivists. Please consult Physicians accordingly. >100,000 cfu/ml Corynebacterium amycolatum Sensitivity testing is not recommended for one of the following reasons: 1. Established susceptibility patterns are available or 2. Interpretative criteria are not available. [facility] Work Phone: Amikacin ANA LILIA [Susc]on 2021 Corynebacterium amycolatum Corynebacterium amycolatum [facility] Work Phone: Escherichia coli ESBL Escherichia coli ESBL [facility] Work Phone: LABORATORYOrdered By: Nilda Flores on 08-09-2022 Appearance (U) Turbid *ABN* (08/09/22 12:45 AM) Invalid Interpretation Code Clear AH Auto Urine SS Bacteria LM.HPF (Urine sed) [#/Area] 4 /[HPF] Invalid Interpretation Code Negative/HP F AH Auto Urine SS Bilirubin Ql (U) Negative (08/09/22 12:45 AM) Invalid Interpretation Code Neg-Trace AH Auto Urine SS Calcium oxalate crystals LM.HPF (Urine sed) [#/Area] 1 /[HPF] Invalid Interpretation Code AH Auto Urine SS Color (U) Yellow (08/09/22 12:45 AM) Invalid Interpretation Code AH Auto Urine SS Glucose Test strip (U) [Mass/Vol] Negative Invalid Interpretation Code Negativemg/ dL AH Auto Urine SS Hemoglobin Auto test strip (U) [Mass/Vol] Large *ABN* (08/09/22 12:45 AM) Invalid Interpretation Code Neg-Trace AH Auto Urine SS Ketones Ql (U) Negative Invalid Interpretation Code Neg-Tracemg /dL AH Auto Urine SS UA Leuk Est Large *ABN* (08/09/22 12:45 AM) Invalid Interpretation Code Negative AH Auto Urine SS UA Mucous 1+ /HPF Invalid Interpretation Code AH Auto Urine SS UA Nitrite Positive *ABN* (08/09/22 12:45 AM) Invalid Interpretation Code Negative AH Auto Urine SS UA pH 6.0 (08/09/22 12:45 AM) Invalid Interpretation Code 5.0 - 8.0 AH Auto Urine SS UA Protein 100 mg/dL Invalid Interpretation Code Negativemg/ dL AH Auto Urine SS UA RBC 10-20 /HPF Invalid Interpretation Code 0-2/HPF AH Auto Urine SS UA Spec Grav 1.020 (08/09/22 12:45 AM) Invalid Interpretation Code 1.006-1.029 AH Auto Urine SS UA Specimen Type Clean Catch (08/09/22 12:45 AM) Invalid Interpretation Code AH Auto Urine SS UA Squam Epithelial 0-2 /HPF Invalid Interpretation Code 0-20/HPF AH Auto Urine SS UA Urobilinogen 0.2 E.U./dL Invalid Interpretation Code 0.2-1.0E.U. /dL AH Auto Urine SS WBC LM.HPF (Urine sed) [#/Area] LOADED /HPF Invalid Interpretation Code 0-5/HPF AH Auto Urine SS LABORATORYOrdered By: Sole Sherman on 08-08-2022 Appearance (U) Turbid *ABN* (08/08/22 7:17 PM) Invalid Interpretation Code Clear AH Auto Urine SS Bacteria LM.HPF (Urine sed) [#/Area] 3 /[HPF] Invalid Interpretation Code Negative/HP F AH Auto Urine SS Bilirubin Ql (U) Negative (08/08/22 7:17 PM) Invalid Interpretation Code Neg-Trace AH Auto Urine SS Color (U) Yellow (08/08/22 7:17 PM) Invalid Interpretation Code AH Auto Urine SS Glucose Test strip (U) [Mass/Vol] Negative Invalid Interpretation Code Negativemg/ dL AH Auto Urine SS Hemoglobin Auto test strip (U) [Mass/Vol] Large *ABN* (08/08/22 7:17 PM) Invalid Interpretation Code Neg-Trace AH Auto Urine SS Ketones Ql (U) Negative Invalid Interpretation Code Neg-Tracemg /dL AH Auto Urine SS UA Coarse Granular Casts Rare /LPF Invalid Interpretation Code AH Auto Urine SS UA Leuk Est Large *ABN* (08/08/22 7:17 PM) Invalid Interpretation Code Negative AH Auto Urine SS UA Nitrite Positive *ABN* (08/08/22 7:17 PM) Invalid Interpretation Code Negative AH Auto Urine SS UA pH 6.5 (08/08/22 7:17 PM) Invalid Interpretation Code 5.0 - 8.0 AH Auto Urine SS UA Protein 100 mg/dL Invalid Interpretation Code Negativemg/ dL AH Auto Urine SS UA RBC 3-5 /HPF Invalid Interpretation Code 0-2/HPF AH Auto Urine SS UA Spec Grav 1.020 (08/08/22 7:17 PM) Invalid Interpretation Code 1.006-1.029 AH Auto Urine SS UA Specimen Type Catheter (08/08/22 7:17 PM) Invalid Interpretation Code AH Auto Urine SS UA Squam Epithelial 0-2 /HPF Invalid Interpretation Code 0-20/HPF AH Auto Urine SS UA Urobilinogen 0.2 E.U./dL Invalid Interpretation Code 0.2-1.0E.U. /dL AH Auto Urine SS WBC LM.HPF (Urine sed) [#/Area] 10-20 /HPF Invalid Interpretation Code 0-5/HPF AH Auto Urine SS LABORATORYOrdered By: Bassam Dixon on 08-08-2022 Albumin BCP dye [Mass/Vol] 3.7 G/dL Invalid Interpretation Code 3.2 - 4.8 G/dL AH ADM SS Albumin/Globulin [Mass ratio] 1.5 {ratio} Invalid Interpretation Code 0.9 - 1.6 ratio AH ADM SS ALP [Catalytic activity/Vol] 73 U/L Invalid Interpretation Code 38 - 126 U/L AH ADM SS ALT No additional P-5'-P [Catalytic activity/Vol] U/L 1 Invalid Interpretation Code 10 - 49 U/L AH ADM SS AST [Catalytic activity/Vol] 14 U/L Invalid Interpretation Code 8 - 34 U/L AH ADM SS Bili Indirect Unable to Calculate Invalid Interpretation Code 0.1 - 10.0 Chemistry S Comment on above: Result Comment: Unab le to calculate this test result accurately. Results used to calculate this test are outside the reportable range. Bilirubin [Mass/Vol] 0.20 mg/dL Invalid Interpretation Code 0.20 - 1.20 mg/dL AH ADM SS Bilirubin.conjugated [Mass/Vol] mg/dL Invalid Interpretation Code 0.0 - 0.4 mg/dL AH ADM SS Globulin 2.5 G/dL Invalid Interpretation Code 1.5 - 3.8 G/dL AH ADM SS Protein [Mass/Vol] 6.2 G/dL Invalid Interpretation Code 5.7 - 8.2 G/dL AH ADM SS LABORATORYOrdered By: Nicole Wilson on 08-08-2022 Appearance (U) Turbid *ABN* (08/08/22 12:55 PM) Invalid Interpretation Code Clear AH Auto Urine SS Bacteria LM.HPF (Urine sed) [#/Area] 4 /[HPF] Invalid Interpretation Code Negative/HP F AH Auto Urine SS Bilirubin Ql (U) Negative (08/08/22 12:55 PM) Invalid Interpretation Code Neg-Trace AH Auto Urine SS Color (U) Yellow (08/08/22 12:55 PM) Invalid Interpretation Code AH Auto Urine SS Glucose Test strip (U) [Mass/Vol] Negative Invalid Interpretation Code Negativemg/ dL AH Auto Urine SS Hemoglobin Auto test strip (U) [Mass/Vol] Large *ABN* (08/08/22 12:55 PM) Invalid Interpretation Code Neg-Trace AH Auto Urine SS Ketones Ql (U) Negative Invalid Interpretation Code Neg-Tracemg /dL AH Auto Urine SS UA Leuk Est Large *ABN* (08/08/22 12:55 PM) Invalid Interpretation Code Negative AH Auto Urine SS UA Mucous 4+ /HPF Invalid Interpretation Code AH Auto Urine SS UA Nitrite Positive *ABN* (08/08/22 12:55 PM) Invalid Interpretation Code Negative AH Auto Urine SS UA pH 6.0 (08/08/22 12:55 PM) Invalid Interpretation Code 5.0 - 8.0 AH Auto Urine SS UA Protein 100 mg/dL Invalid Interpretation Code Negativemg/ dL AH Auto Urine SS UA RBC 25-50 /HPF Invalid Interpretation Code 0-2/HPF Auto Urine SS UA Spec Grav 1.020 (08/08/22 12:55 PM) Invalid Interpretation Code 1.006-1.029 Auto Urine SS UA Specimen Type Catheter (08/08/22 12:55 PM) Invalid Interpretation Code Auto Urine SS UA Squam Epithelial Negative Invalid Interpretation Code 0-20/HPF Auto Urine SS UA Urobilinogen 0.2 E.U./dL Invalid Interpretation Code 0.2-1.0E.U. /dL AH Auto Urine SS WBC LM.HPF (Urine sed) [#/Area] LOADED /HPF Invalid Interpretation Code 0-5/HPF Auto Urine SS LABORATORYOrdered By: SYSTEM SYSTEM on 08-08-2022 Basophil, Absolute 0.0 103/mcL Invalid Interpretation Code 0.0 - 0.3 10^3/mcL CC Workflow SS Basophils/100 WBC (Bld) 0.2 % Invalid Interpretation Code 0.0 - 2.5 % CC Workflow SS Eosinophil, Absolute 0.2 103/mcL Invalid Interpretation Code 0.0 - 0.7 10^3/mcL CC Workflow SS Eosinophils/100 WBC (Bld) 2.7 % Invalid Interpretation Code 0.0 - 6.0 % CC Workflow SS Erythrocyte distribution width (RBC) [Ratio] 14.1 % Invalid Interpretation Code 11.5 - 15.5 % CC Workflow SS GFR/1.73 sq M.predicted among blacks MDRD (S/P/Bld) [Vol rate/Area] ml/min/1.73sqm Invalid Interpretation Code CC Chemistry S GFR/1.73 sq M.predicted among non-blacks MDRD (S/P/Bld) [Vol rate/Area] ml/min/1.73sqm Invalid Interpretation Code CC Chemistry S Hematocrit (Bld) [Volume fraction] 39.8 % Invalid Interpretation Code 34.0 - 46.0 % CC Workflow SS Hgb 13.5 G/dL Invalid Interpretation Code 12.0 - 16.0 G/dL CC Workflow SS Lymphocyte, Absolute 1.3 103/mcL Invalid Interpretation Code 0.9 - 4.3 10^3/mcL CC Workflow SS Lymphocytes/100 WBC (Bld) 13.8 % Invalid Interpretation Code 20.0 - 40.0 % CC Workflow SS Magnesium [Mass/Vol] 1.8 mg/dL Invalid Interpretation Code 1.6 - 2.4 mg/dL ADM SS MCH (RBC) [Entitic mass] 33.8 pg Invalid Interpretation Code 27.0 - 33.0 pg CC Workflow SS MCHC 34.0 G/dL Invalid Interpretation Code 32.0 - 36.0 G/dL CC Workflow SS MCV (RBC) [Entitic vol] 99.5 fL Invalid Interpretation Code 80.0 - 99.0 fL CC Workflow SS Monocyte, Absolute 0.8 103/mcL Invalid Interpretation Code 0.1 - 1.4 10^3/mcL CC Workflow SS Monocytes/100 WBC (Bld) 8.4 % Invalid Interpretation Code 2.0 - 13.0 % CC Workflow SS Neutrophil, Absolute 7.1 103/mcL Invalid Interpretation Code 2.3 - 8.1 10^3/mcL CC Workflow SS Neutrophils/100 WBC (Bld) 74.7 % Invalid Interpretation Code 50.0 - 75.0 % CC Workflow SS Phosphate [Mass/Vol] 3.1 mg/dL Invalid Interpretation Code 2.4 - 5.1 mg/dL ADM SS Platelet 304 103/mcL Invalid Interpretation Code 150 - 450 10^3/mcL CC Workflow SS Platelet mean volume (Bld) [Entitic vol] 7.1 fL Invalid Interpretation Code 6.6 - 10.5 fL CC Workflow SS RBC 4.00 106/mcL Invalid Interpretation Code 4.10 - 5.30 10^6/mcL CC Workflow SS WBC 9.5 103/mcL Invalid Interpretation Code 4.5 - 10.8 10^3/mcL CC Workflow SS LABORATORYOrdered By: Lida Pantoja on 08-08-2022 BUN/Creatinine Ratio 10.3 ratio Invalid Interpretation Code 10.0 - 22.0 ratio CC GWP SS Calcium.ionized (Bld) [Moles/Vol] 1.21 mmol/L Invalid Interpretation Code 1.12 - 1.32 mmol/L CC GWP SS Chloride [Moles/Vol] 112 mmol/L Invalid Interpretation Code 98 - 110 mEq/L CC GWP SS CO2 [Moles/Vol] 18 mmol/L Invalid Interpretation Code 22 - 32 mEq/L CC GWP SS Creatinine [Mass/Vol] 0.88 mg/dL Invalid Interpretation Code 0.50 - 1.20 mg/dL CC GWP SS Electrolyte Balance 8.0 mEq/L Invalid Interpretation Code 4.0 - 15.0 mEq/L CC GWP SS Glucose [Mass/Vol] 97 mg/dL Invalid Interpretation Code 70 - 110 mg/dL CC GWP SS Potassium [Moles/Vol] 3.7 mmol/L Invalid Interpretation Code 3.5 - 5.0 mEq/L CC GWP SS Sodium [Moles/Vol] 138 mmol/L Invalid Interpretation Code 136 - 145 mEq/L CC GWP SS Urea nitrogen [Mass/Vol] 9.1 mg/dL Invalid Interpretation Code 8.0 - 22.0 mg/dL CC GWP SS LABORATORYOrdered By: Hilda Kirk on 08-08-2022 Creatinine (U) [Mass/Vol] 112.1 mg/dL Invalid Interpretation Code ADM SS Protein (U) [Mass/Vol] 141.4 mg/dL Invalid Interpretation Code ADM SS U Ratio Prot/Creat 1.3 ratio Invalid Interpretation Code ADM SS No Panel Informationon 08-08 Culture Urine >100,000 cfu/ml Multiple bacterial morphotypes present. Probable Contamination. Suggest recollection if clinically indicated. [facility] Work Phone: LABORATORYOrdered By: SYSTEM SYSTEM on 04-19-2022 Albumin BCP dye [Mass/Vol] 3.3 G/dL Invalid Interpretation Code 3.2 - 4.8 G/dL ADM SS Albumin/Globulin [Mass ratio] 1.3 {ratio} Invalid Interpretation Code 0.9 - 1.6 ratio ADM SS ALP [Catalytic activity/Vol] 60 U/L Invalid Interpretation Code 38 - 126 U/L ADM SS ALT No additional P-5'-P [Catalytic activity/Vol] U/L 1 Invalid Interpretation Code 10 - 49 U/L ADM SS AST [Catalytic activity/Vol] 15 U/L Invalid Interpretation Code 8 - 34 U/L ADM SS Basophils (Bld) [#/Vol] 0.0 103/mcL Invalid Interpretation Code 0.0 - 0.3 10^3/mcL Workflow SS Basophils/100 WBC (Bld) 0.3 % Invalid Interpretation Code 0.0 - 2.5 % Workflow SS Bilirubin [Mass/Vol] 0.40 mg/dL Invalid Interpretation Code 0.20 - 1.20 mg/dL ADM SS Calcium [Mass/Vol] 9.5 mg/dL Invalid Interpretation Code 8.7 - 10.4 mg/dL ADM SS Chloride [Moles/Vol] 109 mmol/L Invalid Interpretation Code 98 - 110 mEq/L ADM SS CO2 [Moles/Vol] 24 mmol/L Invalid Interpretation Code 22 - 32 mEq/L ADM SS Creatinine [Mass/Vol] 0.73 mg/dL Invalid Interpretation Code 0.50 - 1.20 mg/dL ADM SS Electrolyte Balance 8.0 mEq/L Invalid Interpretation Code 4.0 - 15.0 mEq/L ADM SS Eosinophils (Bld) [#/Vol] 0.4 103/mcL Invalid Interpretation Code 0.0 - 0.7 10^3/mcL Workflow SS Eosinophils/100 WBC (Bld) 6.5 % Invalid Interpretation Code 0.0 - 6.0 % Workflow SS Erythrocyte distribution width (RBC) [Ratio] 15.0 % Invalid Interpretation Code 11.5 - 15.5 % Workflow SS GFR/1.73 sq M.predicted among blacks MDRD (S/P/Bld) [Vol rate/Area] ml/min/1.73sqm Invalid Interpretation Code Chemistry S GFR/1.73 sq M.predicted among non-blacks MDRD (S/P/Bld) [Vol rate/Area] ml/min/1.73sqm Invalid Interpretation Code Chemistry S Globulin 2.5 G/dL Invalid Interpretation Code 1.5 - 3.8 G/dL ADM SS Glucose [Mass/Vol] 78 mg/dL Invalid Interpretation Code 70 - 110 mg/dL ADM SS Hematocrit (Bld) [Volume fraction] 37.3 % Invalid Interpretation Code 34.0 - 46.0 % Workflow SS Hemoglobin (Bld) [Mass/Vol] 12.5 G/dL Invalid Interpretation Code 12.0 - 16.0 G/dL Workflow SS Lymphocytes (Bld) [#/Vol] 1.8 103/mcL Invalid Interpretation Code 0.9 - 4.3 10^3/mcL Workflow SS Lymphocytes/100 WBC (Bld) 30.1 % Invalid Interpretation Code 20.0 - 40.0 % Workflow SS Magnesium [Mass/Vol] 2.1 mg/dL Invalid Interpretation Code 1.6 - 2.4 mg/dL ADM SS MCH (RBC) [Entitic mass] 33.6 pg Invalid Interpretation Code 27.0 - 33.0 pg Workflow SS MCHC 33.4 G/dL Invalid Interpretation Code 32.0 - 36.0 G/dL Workflow SS MCV (RBC) [Entitic vol] 100.7 fL Invalid Interpretation Code 80.0 - 99.0 fL Workflow SS Monocyte distribution width Auto (Bld) [Entitic vol] Not Performed 1 *NA* (04/19/22 3:56 AM) Invalid Interpretation Code 0.00 - 20.00 Hematology S Comment on above: Result Comment: MDW testing performed only on adult ER patients between the ages of 18-89 years. Monocytes (Bld) [#/Vol] 0.7 103/mcL Invalid Interpretation Code 0.1 - 1.4 10^3/mcL Workflow SS Monocytes/100 WBC (Bld) 11.9 % Invalid Interpretation Code 2.0 - 13.0 % Workflow SS Neutrophils (Bld) [#/Vol] 3.0 103/mcL Invalid Interpretation Code 2.3 - 8.1 10^3/mcL Workflow SS Neutrophils/100 WBC (Bld) 51.2 % Invalid Interpretation Code 50.0 - 75.0 % Workflow SS Phosphate [Mass/Vol] 2.5 mg/dL Invalid Interpretation Code 2.4 - 5.1 mg/dL ADM SS Platelet mean volume (Bld) [Entitic vol] 6.6 fL Invalid Interpretation Code 6.6 - 10.5 fL Workflow SS Platelets (Bld) [#/Vol] 381 103/mcL Invalid Interpretation Code 150 - 450 10^3/mcL Workflow SS Potassium [Moles/Vol] 3.5 mmol/L Invalid Interpretation Code 3.5 - 5.0 mEq/L ADM SS Protein [Mass/Vol] 5.8 G/dL Invalid Interpretation Code 5.7 - 8.2 G/dL ADM SS RBC (Bld) [#/Vol] 3.71 106/mcL Invalid Interpretation Code 4.10 - 5.30 10^6/mcL Workflow SS Sodium [Moles/Vol] 141 mmol/L Invalid Interpretation Code 136 - 145 mEq/L ADM SS Urea nitrogen [Mass/Vol] mg/dL Invalid Interpretation Code 8.0 - 22.0 mg/dL ADM SS Urea nitrogen/Creatinine [Mass ratio] ratio Invalid Interpretation Code 10.0 - 22.0 ratio ADM SS WBC 5.9 103/mcL Invalid Interpretation Code 4.5 - 10.8 10^3/mcL Workflow SS LABORATORYOrdered By: SYSTEM SYSTEM on 04-18-2022 Albumin BCP dye [Mass/Vol] 3.1 G/dL Invalid Interpretation Code 3.2 - 4.8 G/dL ADM SS Albumin/Globulin [Mass ratio] 1.3 {ratio} Invalid Interpretation Code 0.9 - 1.6 ratio ADM SS ALP [Catalytic activity/Vol] 59 U/L Invalid Interpretation Code 38 - 126 U/L ADM SS ALT No additional P-5'-P [Catalytic activity/Vol] U/L 1 Invalid Interpretation Code 10 - 49 U/L ADM SS AST [Catalytic activity/Vol] 12 U/L Invalid Interpretation Code 8 - 34 U/L ADM SS Basophils (Bld) [#/Vol] 0.1 103/mcL Invalid Interpretation Code 0.0 - 0.3 10^3/mcL Workflow SS Basophils/100 WBC (Bld) 1.1 % Invalid Interpretation Code 0.0 - 2.5 % Workflow SS Bilirubin [Mass/Vol] 0.40 mg/dL Invalid Interpretation Code 0.20 - 1.20 mg/dL ADM SS Calcium [Mass/Vol] 9.2 mg/dL Invalid Interpretation Code 8.7 - 10.4 mg/dL ADM SS Chloride [Moles/Vol] 109 mmol/L Invalid Interpretation Code 98 - 110 mEq/L ADM SS CO2 [Moles/Vol] 26 mmol/L Invalid Interpretation Code 22 - 32 mEq/L ADM SS Creatinine [Mass/Vol] 0.79 mg/dL Invalid Interpretation Code 0.50 - 1.20 mg/dL ADM SS Electrolyte Balance 3.0 mEq/L Invalid Interpretation Code 4.0 - 15.0 mEq/L ADM SS Eosinophil, Absolute 0.4 103/mcL Invalid Interpretation Code 0.0 - 0.7 10^3/mcL Workflow SS Eosinophils/100 WBC (Bld) 5.8 % Invalid Interpretation Code 0.0 - 6.0 % Workflow SS Erythrocyte distribution width (RBC) [Ratio] 15.0 % Invalid Interpretation Code 11.5 - 15.5 % Workflow SS GFR/1.73 sq M.predicted among blacks MDRD (S/P/Bld) [Vol rate/Area] ml/min/1.73sqm Invalid Interpretation Code Chemistry S GFR/1.73 sq M.predicted among non-blacks MDRD (S/P/Bld) [Vol rate/Area] ml/min/1.73sqm Invalid Interpretation Code Chemistry S Globulin 2.3 G/dL Invalid Interpretation Code 1.5 - 3.8 G/dL ADM SS Glucose [Mass/Vol] 82 mg/dL Invalid Interpretation Code 70 - 110 mg/dL ADM SS Hematocrit (Bld) [Volume fraction] 35.7 % Invalid Interpretation Code 34.0 - 46.0 % AH Workflow SS Hgb 12.1 G/dL Invalid Interpretation Code 12.0 - 16.0 G/dL AH Workflow SS Lymphocyte, Absolute 1.6 103/mcL Invalid Interpretation Code 0.9 - 4.3 10^3/mcL Workflow SS Lymphocytes/100 WBC (Bld) 25.1 % Invalid Interpretation Code 20.0 - 40.0 % Workflow SS Magnesium [Mass/Vol] 1.9 mg/dL Invalid Interpretation Code 1.6 - 2.4 mg/dL ADM SS MCH (RBC) [Entitic mass] 34.2 pg Invalid Interpretation Code 27.0 - 33.0 pg Workflow SS MCHC 34.0 G/dL Invalid Interpretation Code 32.0 - 36.0 G/dL Workflow SS MCV (RBC) [Entitic vol] 100.5 fL Invalid Interpretation Code 80.0 - 99.0 fL Workflow SS Monocyte distribution width Auto (Bld) [Entitic vol] Not Performed 2 *NA* (04/18/22 5:13 AM) Invalid Interpretation Code 0.00 - 20.00 Hematology S Comment on above: Result Comment: MDW testing performed only on adult ER patients between the ages of 18-89 years. Monocyte, Absolute 0.6 103/mcL Invalid Interpretation Code 0.1 - 1.4 10^3/mcL Workflow SS Monocytes/100 WBC (Bld) 9.7 % Invalid Interpretation Code 2.0 - 13.0 % Workflow SS Neutrophil, Absolute 3.6 103/mcL Invalid Interpretation Code 2.3 - 8.1 10^3/mcL Workflow SS Neutrophils/100 WBC (Bld) 58.3 % Invalid Interpretation Code 50.0 - 75.0 % Workflow SS Phosphate [Mass/Vol] 2.4 mg/dL Invalid Interpretation Code 2.4 - 5.1 mg/dL ADM SS Platelet 369 103/mcL Invalid Interpretation Code 150 - 450 10^3/mcL AH Workflow SS Platelet mean volume (Bld) [Entitic vol] 6.4 fL Invalid Interpretation Code 6.6 - 10.5 fL AH Workflow SS Potassium [Moles/Vol] 3.6 mmol/L Invalid Interpretation Code 3.5 - 5.0 mEq/L AH ADM SS Protein [Mass/Vol] 5.4 G/dL Invalid Interpretation Code 5.7 - 8.2 G/dL ADM SS RBC 3.55 106/mcL Invalid Interpretation Code 4.10 - 5.30 10^6/mcL Workflow SS Sodium [Moles/Vol] 138 mmol/L Invalid Interpretation Code 136 - 145 mEq/L ADM SS Urea nitrogen [Mass/Vol] 5.0 mg/dL Invalid Interpretation Code 8.0 - 22.0 mg/dL ADM SS Urea nitrogen/Creatinine [Mass ratio] 6.3 ratio Invalid Interpretation Code 10.0 - 22.0 ratio ADM SS WBC 6.2 103/mcL Invalid Interpretation Code 4.5 - 10.8 10^3/mcL Workflow SS LABORATORYOrdered By: SYSTEM SYSTEM on 04-17-2022 Albumin BCP dye [Mass/Vol] 3.3 G/dL Invalid Interpretation Code 3.2 - 4.8 G/dL ADM SS Albumin/Globulin [Mass ratio] 1.3 {ratio} Invalid Interpretation Code 0.9 - 1.6 ratio ADM SS ALP [Catalytic activity/Vol] 64 U/L Invalid Interpretation Code 38 - 126 U/L ADM SS ALT No additional P-5'-P [Catalytic activity/Vol] U/L 1 Invalid Interpretation Code 10 - 49 U/L ADM SS AST [Catalytic activity/Vol] 13 U/L Invalid Interpretation Code 8 - 34 U/L ADM SS Basophils (Bld) [#/Vol] 0.1 103/mcL Invalid Interpretation Code 0.0 - 0.3 10^3/mcL AH Workflow SS Basophils/100 WBC (Bld) 0.9 % Invalid Interpretation Code 0.0 - 2.5 % Workflow SS Bilirubin [Mass/Vol] 0.40 mg/dL Invalid Interpretation Code 0.20 - 1.20 mg/dL ADM SS Calcium [Mass/Vol] 9.4 mg/dL Invalid Interpretation Code 8.7 - 10.4 mg/dL ADM SS Chloride [Moles/Vol] 107 mmol/L Invalid Interpretation Code 98 - 110 mEq/L ADM SS CO2 [Moles/Vol] 23 mmol/L Invalid Interpretation Code 22 - 32 mEq/L ADM SS Creatinine [Mass/Vol] 0.77 mg/dL Invalid Interpretation Code 0.50 - 1.20 mg/dL ADM SS Electrolyte Balance 8.0 mEq/L Invalid Interpretation Code 4.0 - 15.0 mEq/L ADM SS Eosinophil, Absolute 0.2 103/mcL Invalid Interpretation Code 0.0 - 0.7 10^3/mcL AH Workflow SS Eosinophils/100 WBC (Bld) 3.0 % Invalid Interpretation Code 0.0 - 6.0 % Workflow SS Erythrocyte distribution width (RBC) [Ratio] 15.3 % Invalid Interpretation Code 11.5 - 15.5 % Workflow SS GFR/1.73 sq M.predicted among blacks MDRD (S/P/Bld) [Vol rate/Area] ml/min/1.73sqm Invalid Interpretation Code Chemistry S GFR/1.73 sq M.predicted among non-blacks MDRD (S/P/Bld) [Vol rate/Area] ml/min/1.73sqm Invalid Interpretation Code Chemistry S Globulin 2.5 G/dL Invalid Interpretation Code 1.5 - 3.8 G/dL ADM SS Glucose [Mass/Vol] 75 mg/dL Invalid Interpretation Code 70 - 110 mg/dL ADM SS Hematocrit (Bld) [Volume fraction] 37.0 % Invalid Interpretation Code 34.0 - 46.0 % Workflow SS Hgb 12.3 G/dL Invalid Interpretation Code 12.0 - 16.0 G/dL Workflow SS Lymphocyte, Absolute 2.4 103/mcL Invalid Interpretation Code 0.9 - 4.3 10^3/mcL Workflow SS Lymphocytes/100 WBC (Bld) 29.0 % Invalid Interpretation Code 20.0 - 40.0 % Workflow SS Magnesium [Mass/Vol] 1.9 mg/dL Invalid Interpretation Code 1.6 - 2.4 mg/dL ADM SS MCH (RBC) [Entitic mass] 33.4 pg Invalid Interpretation Code 27.0 - 33.0 pg Workflow SS MCHC 33.2 G/dL Invalid Interpretation Code 32.0 - 36.0 G/dL Workflow SS MCV (RBC) [Entitic vol] 100.5 fL Invalid Interpretation Code 80.0 - 99.0 fL Workflow SS Monocyte distribution width Auto (Bld) [Entitic vol] Not Performed 3 *NA* (04/17/22 5:20 AM) Invalid Interpretation Code 0.00 - 20.00 Hematology S Comment on above: Result Comment: MDW testing performed only on adult ER patients between the ages of 18-89 years. Monocyte, Absolute 0.7 103/mcL Invalid Interpretation Code 0.1 - 1.4 10^3/mcL Workflow SS Monocytes/100 WBC (Bld) 8.9 % Invalid Interpretation Code 2.0 - 13.0 % Workflow SS Neutrophil, Absolute 4.7 103/mcL Invalid Interpretation Code 2.3 - 8.1 10^3/mcL Workflow SS Neutrophils/100 WBC (Bld) 58.2 % Invalid Interpretation Code 50.0 - 75.0 % Workflow SS Phosphate [Mass/Vol] 2.4 mg/dL Invalid Interpretation Code 2.4 - 5.1 mg/dL ADM SS Platelet 399 103/mcL Invalid Interpretation Code 150 - 450 10^3/mcL Workflow SS Platelet mean volume (Bld) [Entitic vol] 6.9 fL Invalid Interpretation Code 6.6 - 10.5 fL Workflow SS Potassium [Moles/Vol] 3.6 mmol/L Invalid Interpretation Code 3.5 - 5.0 mEq/L ADM SS Protein [Mass/Vol] 5.8 G/dL Invalid Interpretation Code 5.7 - 8.2 G/dL ADM SS RBC 3.68 106/mcL Invalid Interpretation Code 4.10 - 5.30 10^6/mcL Workflow SS Sodium [Moles/Vol] 138 mmol/L Invalid Interpretation Code 136 - 145 mEq/L ADM SS Urea nitrogen [Mass/Vol] 5.0 mg/dL Invalid Interpretation Code 8.0 - 22.0 mg/dL ADM SS Urea nitrogen/Creatinine [Mass ratio] 6.5 ratio Invalid Interpretation Code 10.0 - 22.0 ratio ADM SS WBC 8.1 103/mcL Invalid Interpretation Code 4.5 - 10.8 10^3/mcL Workflow SS No Panel Informationon 04-15 Culture Urine <10,000 cfu/ml. No Significant growth. Sensitivity not indicated. [facility] Work Phone: No Panel Informationon 04-14 Culture Urine >100,000 cfu/ml Escherichia coli ESBL Extended-Spectrum B-Lactamase isolate may be clinically resistant to therapy with Penicillins, Cephalosporinsor Aztreonam despite apparent in vitro susceptibility to some of these agents. Use of Imipenem is currently restricted to Infectious Disease /Intensivists. Please consult Physicians accordingly. >100,000 cfu/ml Enterococcus faecalis [facility] Work Phone: Enterococcus faecalis Enterococcus faecalis [facility] Work Phone: Escherichia coli ESBL Escherichia coli ESBL [facility] Work Phone: LABORATORYOrdered By: Oc De Leon on 12-21-2021 Beta HCG ( test) Ql (U) Negative (12/21/21 11:24 AM) [facility] Work Phone: Clinical Event Note-Hospital ist Follow Up Callon 07-20-2021 Clinical Event Note-Hospitalist Follow Up Call Clinical Event: Clinical Event Note: TopicHospitalist Follow Up Call Details Hospitalist Follow Up Call Phone Number Called: Call Type: Discharge follow up phone call Patient Reports Symptoms are: Any Medication Issues: Discharge Instructions Clear: Patient Has Follow Up Appointment: Comments: Per Marck Ko called no answer and no voice mail Electronic Signatures: Akin Lewis (LITIGATION ATTORNEY ASSOCIATE-HAZARDOUS WASTE REMOVER) (Signed 20-Jul-2021 02:23) Authored: Clinical Event Note Last Updated: 20-Jul-2021 02:23 by Akin Lewis (LITIGATION ATTORNEY ASSOCIATE-HAZARDOUS WASTE REMOVER) Normal [facility] BASIC METABOLIC PANELon 07-04 Anion gap [Moles/Vol] 13 mmol/L Normal 10 - 20 [facility] Comment on above: Performed By: #### B MP #### [facility] [address] [place] [address] Calcium [Mass/Vol] 9.3 mg/dL Normal 8.6 - 10.6 [facility] Comment on above: Performed By: #### B MP #### [facility] [address] [place] [address] Chloride [Moles/Vol] 107 mmol/L Normal 98 - 107 [facility] Comment on above: Performed By: #### B MP #### [facility] [address] [place] [address] Creatinine [Mass/Vol] 0.76 mg/dL Normal 0.50 - 1.05 [facility] Comment on above: Performed By: #### B MP #### [facility] [address] [place] [address] GFR- AM. >60 Normal >60 [facility] Comment on above: Result Comment: CALC ULATIONS OF ESTIMATED GFR ARE PERFORMED USING THE MDRD STUDY EQUATION FOR THE IDMS-TRACEABLE CREATININE METHODS. CLIN CHEM 2007;53:766-72 Performed By: #### B MP #### [facility] [address] [place] [address] GFR-NON AM. >60 Normal >60 [facility] Comment on above: Performed By: #### B MP #### [facility] [address] [place] [address] Glucose [Mass/Vol] 77 mg/dL Normal 74 - 99 [facility] Comment on above: Performed By: #### B MP #### [facility] [address] [place] [address] HCO3 (Bld) [Moles/Vol] 26 mmol/L Normal 21 - 32 [facility] Comment on above: Performed By: #### B MP #### [facility] [address] [place] [address] Potassium [Moles/Vol] 4.2 mmol/L Normal 3.5 - 5.3 [facility] Comment on above: Performed By: #### B MP #### [facility] [address] [place] [address] Sodium [Moles/Vol] 142 mmol/L Normal 136 - 145 [facility] Comment on above: Performed By: #### B MP #### [facility] [address] [place] [address] Urea nitrogen [Mass/Vol] 8 mg/dL Normal 6 - 23 [facility] Comment on above: Performed By: #### B MP #### [facility] [address] [place] [address] CBCon 07-14-2021 Erythrocyte distribution width (RBC) [Ratio] 13.8 % Normal 11.5 - 14.5 [facility] Comment on above: Performed By: #### C BC #### [facility] [address] [place] [address] Hematocrit (Bld) [Volume fraction] 35.6 % Low 36.0 - 46.0 [facility] Comment on above: Performed By: #### C BC #### [facility] [address] [place] [address] Hemoglobin (Bld) [Mass/Vol] 12.3 g/dL Normal 12.0 - 16.0 [facility] Comment on above: Performed By: #### C BC #### [facility] [address] [place] [address] MCHC (RBC) [Mass/Vol] 34.6 g/dL Normal 32.0 - 36.0 [facility] Comment on above: Performed By: #### C BC #### [facility] [address] [place] [address] MCV (RBC) [Entitic vol] 108 fL High 80 - 100 [facility] Comment on above: Performed By: #### C BC #### [facility] [address] [place] [address] NUCLEATED RBC 0.0 /100 WBC Normal 0.0-0.0 [facility] Comment on above: Performed By: #### C BC #### [facility] [address] [place] [address] Platelets (Bld) [#/Vol] 462 10*3/uL High 150 - 450 [facility] Comment on above: Performed By: #### C BC #### [facility] [address] [place] [address] RBC 3.29 x10E12/L Low 4.00 - 5.20 [facility] Comment on above: Performed By: #### C BC #### [facility] [address] [place] [address] WBC (Bld) [#/Vol] 6.6 10*3/uL Normal 4.4 - 11.3 [facility] Comment on above: Performed By: #### C #### [facility] [address] [place] [address] Order Reconciliationon 07-14 Order Reconciliation Page 1 Discharge Reconciliation Document Reconciliation Type: Discharge requested on behalf of Shira Teran (Physician) done by Shira Teran) Discharge - Reconciliation: 14-Jul-2021 14:14 by: Shira Teran) Discharge - Reset to Incomplete: 14-Jul-2021 17:10 by: Shira Teran) Discharge - Reconciliation: 14-Jul-2021 17:10 by: Shira Teran) Home Medications EnteredHOME MEDICATIONS AT DISCHARGE DateReconciliation Comment/ Additional Information LORazepam 1 mg oral tablet 1 tab(s) orally 3 times a day, As Needed 12-Jul-2021 00:28 LORazepam 1 mg oral tablet 1 tab(s) orally 3 times a day, As Needed 12-Jul-2021 00:28 LORazepam 1 mg oral tablet is continued as LORazepam 1 mg oral tablet Percocet 5/325 oral tablet orally every 4-6 hours, As Needed 12-Jul-2021 00:29 Discontinued; Discontinue from ORM Percocet 5/325 oral tablet is not required Zofran 4 mg oral tablet orally every 4 hours, As Needed 12-Jul-2021 00:28 Discontinued; Discontinue from ORM Zofran 4 mg oral tablet is not required Current OrdersDateHOME MEDICATIONS AT DISCHARGE DateReconciliation Comment/ Additional Information Acetaminophen Tablet (TYLENOL)DOSE = 650 mg Oral Every 4 Hours 12-Jul-2021 00:34 Acetaminophen is not required Docusate Capsule (COLACE)DOSE = 100 mg Oral 2 Times a Day 12-Jul-2021 00:34 Docusate is not required LORazepam Tablet (ATIVAN)DOSE = 1 mg Oral Every 8 Hours, PRN Anxiety 12-Jul-2021 10:55 LORazepam is not required Melatonin TabletDOSE = 3 mg Oral At Bedtime, PRN Insomnia 12-Jul-2021 00:34 Melatonin is not required Morphine Injectable DOSE = 2 mg IntraVenous Push Every 4 Hours, PRN Pain - Severe (7-10) 12-Jul-2021 00:24 Morphine Injectable is not required Nicotine 14 mg/ 24 hour TransDermal Film, Extended Release (NICODERM)DOSE = 1 patch TransDermal Every 24 HoursNotes from Pharmacy: [facility] 12-Jul-2021 20:53 Nicotine 14 mg/ 24 hour TransDermal is not required Ondansetron Injectable (ZOFRAN)DOSE = 4 mg IntraVenous Push Every 6 Hours, PRN Nausea and/or Vomiting 12-Jul-2021 01:40 Ondansetron Injectable is not required Pneumococcal 13-Valent (PREVNAR 13) Vaccine DOSE = 0.5 mL IntraMuscular Once 13-Jul-2021 01:25 Pneumococcal 13-Valent (PREVNAR 13) Vaccine is not required Sulfamethoxazole 800 mg - Trimethoprim 160 mg Tablet (BACTRIM DS, SEPTRA DS)DOSE = 1 tablet(s) Oral Every 12 Hours 13-Jul-2021 19:01 sulfamethoxazole-trimeth oprim 800 mg-160 mg oral tablet 1 tab(s) orally every 12 hours 14-Jul-2021 17:10 Prescription is created for sulfamethoxazole-trimeth oprim 800 mg-160 mg oral tablet Home Medications Added During Discharge Reconciliation Discharge Discharge Diagnosis< N39.0 Complicated UTI (urinary tract infection) Discharge Provider, Shira Teran Discharge Disposition : .Home Condition at Discharge: Satisfactory Discharge Communication Instructions for Nursing Only: Discharge patient TODAY. Discharge Communication Instructions for Nursing Only: Remove IV prior to discharge from hospital. Do not remove any midline, if present, without an order from the provider. Discharge Instructions - PHR After your discharge from the hospital, two Summary of Care Documents will be available online in your Personal Health Record (PHR). 1.Consolidated-Clinical Document Architecture (C-CDA) Patient Discharge Summary This document is a summary of your hospital stay to be kept for your reference.2.C-CDA Visit Summary This document is a summary of your hospital stay to be shared with your follow-up providers (doctor, community outreach specialist, physical therapist, etc.). Guidelines for a Healthy Lifestyle All Active Home Medications at time of Discharge Reconciliation: 14-Jul-2021 17:10 Discharge Discharge Diagnosis< N39.0 Complicated UTI (urinary tract infection) Discharge ProviderParul Dimitra Discharge Disposition : .Home Condition at Discharge: Satisfactory Discharge Communication Instructions for Nursing Only: Discharge patient TODAY. Discharge Communication Instructions for Nursing Only: Remove IV prior to discharge from hospital. Do not remove any midline, if present, without an order from the provider. Discharge Instructions - PHR After your discharge from the hospital, two Summary of Care Documents will be available online in your Personal Health Record (PHR). 1.Consolidated-Clinical Document Architecture (C-CDA) Patient Discharge Summary This document is a summary of your hospital stay to be kept for your reference.2.C-CDA Visit Summary This document is a summary of your hospital stay to be shared with your follow-up providers (doctor, community outreach specialist, physical therapist, etc.). Guidelines for a Healthy Lifestyle LORazepam 1 mg oral tablet 1 tab(s) orally 3 times a day, As Needed sulfamethoxazole-trimeth oprim 800 mg-160 mg oral tablet 1 tab(s) orally every 12 hours Normal [facility] BASIC METABOLIC PANELon 07-04-2020 Anion gap [Moles/Vol] 9 mmol/L Low 10 - 20 [facility] Comment on above: Performed By: #### B MP #### [facility] [address] [place] [address] Calcium [Mass/Vol] 8.7 mg/dL Normal 8.6 - 10.6 [facility] Comment on above: Performed By: #### B MP #### [facility] [address] [place] [address] Chloride [Moles/Vol] 105 mmol/L Normal 98 - 107 [facility] Comment on above: Performed By: #### B MP #### [facility] [address] [place] [address] Creatinine [Mass/Vol] 0.67 mg/dL Normal 0.50 - 1.05 [facility] Comment on above: Performed By: #### B MP #### [facility] [address] [place] [address] GFR- AM. >60 Normal >60 [facility] Comment on above: Result Comment: CALC ULATIONS OF ESTIMATED GFR ARE PERFORMED USING THE MDRD STUDY EQUATION FOR THE IDMS-TRACEABLE CREATININE METHODS. CLIN CHEM 2007;53:766-72 Performed By: #### B MP #### [facility] [address] [place] [address] GFR-NON AM. >60 Normal >60 [facility] Comment on above: Performed By: #### B MP #### [facility] [address] [place] [address] Glucose [Mass/Vol] 89 mg/dL Normal 74 - 99 [facility] Comment on above: Performed By: #### B MP #### [facility] [address] [place] [address] HCO3 (Bld) [Moles/Vol] 28 mmol/L Normal 21 - 32 [facility] Comment on above: Performed By: #### B MP #### [facility] [address] [place] [address] Potassium [Moles/Vol] 4.2 mmol/L Normal 3.5 - 5.3 [facility] Comment on above: Performed By: #### B MP #### [facility] [address] [place] [address] Sodium [Moles/Vol] 138 mmol/L Normal 136 - 145 [facility] Comment on above: Performed By: #### B MP #### [facility] [address] [place] [address] Urea nitrogen [Mass/Vol] 7 mg/dL Normal 6 - 23 [facility] Comment on above: Performed By: #### B MP #### [facility] [address] [place] [address] CBCon 07-13-2021 Erythrocyte distribution width (RBC) [Ratio] 13.7 % Normal 11.5 - 14.5 [facility] Comment on above: Performed By: #### C BC #### [facility] [address] [place] [address] Hematocrit (Bld) [Volume fraction] 35.5 % Low 36.0 - 46.0 [facility] Comment on above: Performed By: #### C BC #### [facility] [address] [place] [address] Hemoglobin (Bld) [Mass/Vol] 11.7 g/dL Low 12.0 - 16.0 [facility] Comment on above: Performed By: #### C BC #### [facility] [address] [place] [address] MCHC (RBC) [Mass/Vol] 33.0 g/dL Normal 32.0 - 36.0 [facility] Comment on above: Performed By: #### C BC #### [facility] [address] [place] [address] MCV (RBC) [Entitic vol] 109 fL High 80 - 100 [facility] Comment on above: Performed By: #### C BC #### [facility] [address] [place] [address] NUCLEATED RBC 0.0 /100 WBC Normal 0.0-0.0 [facility] Comment on above: Performed By: #### C BC #### [facility] [address] [place] [address] Platelets (Bld) [#/Vol] 425 10*3/uL Normal 150 - 450 [facility] Comment on above: Performed By: #### C BC #### [facility] [address] [place] [address] RBC 3.26 x10E12/L Low 4.00 - 5.20 [facility] Comment on above: Performed By: #### C BC #### [facility] [address] [place] [address] WBC (Bld) [#/Vol] 5.9 10*3/uL Normal 4.4 - 11.3 [facility] Comment on above: Performed By: #### C BC #### [facility] [address] [place] [address] Daily Progress Note-Medicine on 07-13-2021 Daily Progress Note-Medicine Service: Medicine Subjective Data: LALY NAVAS is a 30 year old Female who is Hospital Day # 3. Patient states she is feeling better today. Still having some pain around the left nephrostomy tube. Objective Data: Objective Information: T [id number] [id number]/[id number]% Date/Time07/13 16: 16: 16: 16: 16:02 Range(36.8C - 37.3C ) (68 - 90 ) (18 - 18 ) (109 - 120 )/ (75 - 93 ) (98% - 100% ) Highest temp of 37.3 C was recorded at 07/13 8:26 Pain reported at 07/13 6:36: 7 = Severe ---- Intake and Output ----- Mn/Dy/[facility]Out[facility] Jul 13, 2021 2:00 [id number] Jul 13, 2021 6:00 [id number] Jul 12, 2021 10:00 [id number] The Intake and Output Totals for the last 24 hours are: IntakeOutputNet [id number] Physical Exam by System: Constitutional: Well developed, awake/alert/oriented x3, no distress, alert and cooperative Eyes: PERRL, EOMI, clear sclera ENMT: mucous membranes moist, no apparent injury, no lesions seen Head/Neck: Neck supple, no apparent injury, thyroid without mass or tenderness, No JVD, trachea midline, no bruits Respiratory/Thorax: Patent airways, CTAB, normal breath sounds with good chest expansion, thorax symmetric Cardiovascular: Regular, rate and rhythm, no murmurs, 2+ equal pulses of the extremities, normal S 1and S 2 Gastrointestinal: Nondistended, soft, non-tender, no rebound tenderness or guarding, no masses palpable, no organomegaly, +BS, no bruits Extremities: normal extremities, no cyanosis edema, contusions or wounds, no clubbing Neurological: alert and oriented x3, intact senses, motor, response and reflexes, normal strength Lymphatic: No significant lymphadenopathy Psychological: Appropriate mood and behavior Skin: Warm and dry, no lesions, no rashes Left nephrostomy tube present Medication: Medications: Continuous Medications -------- No continuous medications are active Scheduled Medications -------- 1. Acetaminophen: 650 mg Oral Every 4 Hours 2. Docusate: 100 mg Oral 2 Times a Day 3. Nicotine 14 mg/ 24 hour TransDermal: 1 patch TransDermal Every 24 Hours 4. Sulfamethoxazole 800 mg - Trimethoprim 160 m tablet(s) Oral Every 12 Hours PRN Medications -------- 1. LORazepam: 1 mg Oral Every 8 Hours 2. Melatonin: 3 mg Oral At Bedtime 3. Morphine Injectable: 2 mg IntraVenous Push Every 4 Hours 4. Ondansetron Injectable: 4 mg IntraVenous Push Every 6 Hours Recent Lab Results: Results: CBC: 07/13/2021 05:20 \ Hgb / \ 11.7 L / WBC Plt 5.9 425 / Hct \ / 35.5 L \ RBC: 3.26 L MCV: 109 H BMP: 07/13/2021 05:20 NA+ Cl- BUN / 138 105 7 / -------- Glucose --- 89 K+ HCO3- Creat \ 4.2 28 0.67 \ Calcium : 8.7 Anion Gap : 9 L Assessment and Plan: Code Status: Code StatusFull Code Assessment: Complicated UTI Left nephrostomy tube Urine culture is growing E. coli X 2 with multiple resistance pattern Discontinue Rocephin and start Bactrim Patient should be okay for p.o. antibiotics, as she has had no signs or symptoms of sepsis Anticipate likely DC to home tomorrow Nutrition Diagnosis: Nutrition Diagnosis Agree with dietitians assessment and diagnoses as stated. 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 Electronic Signatures: Shira Teran) (Signed 13-Jul-2021 19:06) Authored: Service, Subjective Data, Objective Data, Assessment and Plan, Note Completion Last Updated: 13-Jul-2021 19:06 by Shira Teran) Normal [facility] Discharge [id number] Discharge Profile2 Discharge Orders: Anticipated Discharge Date: Anticipated Discharge [id number] Hospital Providers: Provider RoleProvider Name AttendingShira Teran DNAR: DNAR Status: none Activity: activity as tolerated. Diet: Dietresume normal diet Provider FINAL REVIEW of Orders: Final Review: Final Review of Medication Reconciliation and Orders Completedby Physician Reviewing ProviderShira Teran MD at 14-Jul-2021 14:12:33 Appointments: Follow-Up Appointment 01: Physician/Dept/Yara Plummer Reason for ReferralFollow up Scheduled Date/[id number] 11:10 [facility], [address] [place] [address], [address], [place] [address] Phone [phone] Electronic Signatures: Shira Teran) (Signed 14-Jul-2021 14:12) Authored: Discharge Orders, Provider FINAL REVIEW of Orders Delmar Ramos (LITIGATION ATTORNEY ASSOCIATE-HAZARDOUS WASTE REMOVER) (Signed 13-Jul-2021 10:30) Authored: Discharge Orders, Appointments, Gold Form - Heel Scorer Summary Last Updated: 14-Jul-2021 14:12 by Shira Teran) Normal [facility] LACTATEon 07-13-2021 Lactate [Moles/Vol] 1.2 mmol/L Normal 0.4 - 2.0 [facility] Comment on above: Result Comment: Roseline puncture immediately after or during the administration of Metamizole may lead to falsely low results. Testing should be performed immediately prior to Metamizole dosing. Performed By: #### L ACT #### [facility] [address] [place] [address] Admission Risk Screen - Adul ton 07-12-2021 Admission Risk Screen - Adult Allergies: Allergies: No Known Allergies: Patient Verification: New W ID Band Applied in my Departmentno Type of ID Patient is WearingW wristband, but not applied here Patient Transferred from Other Facility ([facility], [facility],etc)no Patient Identity Verified Bypatient ID Band FULL Name, include Middle, spelling matches patient's ID used for verificationyes ID Band Matches Patient ID used for Verficationyes ID Band MRN Matches EMR MRNyes Visitor Restriction: Coronavirus Visitor Restriction: Reasonable restrictions to in-person visitors will be observed due to current coronavirus pandemic. Travel History: COVID-19 Screening Completedno exposure or symptoms Travel or Exposure Past 30 DaysNO travel to International locations in the past 30 days Ebola AlertFor Ebola-like Symptoms: Isolate Patient and Notify Provider/Sleeping Room Cleaner For Contact: Notify Provider/Sleeping Room Cleaner Advance Directive: Advance Directive/DNRno (1) Advance Directive Information Givenpatient/family declined Mina Fall Screen: History of falling (immediate or previous)no (0) Secondary Diagnosisyes (15) Intravenous Therapy/ Heparin/Saline Lockyes (20) Gait/Transferringnormal/ bedrest/wheelchair (0) Ambulatory Aidsnone/bedrest/nurse assist (0) Mental Statusoriented to own ability (0) Score: Low risk (<25). Moderate risk (25-44). High risk (>44).35 Mina InterventionsMODERATE INTERVENTIONS: *Low Interventions Plus: * falls risk band/sticker applied to patient, *yellow non-skid footwear, *instruct to call for assistance before getting out of bed, *bed/chair/bedside commode/toilet alarms, *sensory devices/ambulatory aides available and in reach, *medications reviewed for potential side effects and care planning. Family Violence Screen: Are you or have you been threatened or abused physically, emotionally, or sexually by anyoneno Do you feel UNSAFE going back to the place where you are livingno Clinical assessment: Are there any apparent signs of injuries/behaviors that could be related to abuse/neglectno Social Service Consult for abuse/neglect needed this visitno Functional Screen: Functional Screen: In the recent/past 2-4 weeks, patient or family have noticedno issues that require a speech/language consult at this time AM-PAC- Basic Mobility/Daily Activity: Patient baseline bedboundno Turning from your back to your side while in a flat bed without using bedrailsa little Moving from lying on your back to sitting on the side of a flat bed without using bedrailsa little Moving to and from bed to chair (including a wheelchair)a little Standing up from a chair using your arms (e.g. wheelchair or bedside chair)a little To walk in hospital rooma little Climbing 3-5 steps with railinga little Basic Mobility - Total Score18 Putting on and taking off regular lower body clothinga little Bathing (including washing, rinsing, drying)a little Putting on and taking off regular upper body clothinga little Toileting, which includes using toilet, bedpan or urinala little Taking care of personal grooming such as brushing teetha little Eating Mealsa little Daily Activity - Total Score18 Learning Assessment (Patient): Patient is Able to be Assessed for Learningyes Factors Influencing Readiness to Learnmotivation to learn Factors that Impact Ability to Learnnone Devices/Methods Used to Communicatenone Learning Preferencesverbal instruction Cultural Considerationsnone Developmental Considerationsnone Latter Day Considerationsnone Learning Assessment (Other Learner): Other learner availableno Depression Screen: During the past month, have you often been bothered by feeling down, depressed or hopelessyes During the past month, have you often had little interest or pleasure in doing thingsyes Have you had any thoughts of harming anyone elseno (2) [place] Suicide: Risk Screen Not Applicable/Able to Answerable to be screened In the Past Month: Have you wished you were or could go to sleep and not wake upno(2) In the Past Month: Have you had any actual thoughts of killing yourself no(2) Lifetime: Have you ever done, started to do, or prepared to do anything to end your lifeno [place] Suicide Risknegative Adult Nutrition Screen: Have you recently lost weight without tryingyes; 14-23 lb Have you been eating poorly because of a decreased appetiteyes Malnutrition Screening Tool Score3 Malnutrition Screening Tool RiskMST = 2 or more At Risk. Eating poorly and/or recent weight loss Nutrition Consult needed this visityes Can Patient Participate in Room Serviceyes Patient requires Paper Dishes/Plastic Utensilsno Pain Screen: Pain Scalenumerical 0-10 Pain Scale Educationteaching provided Current Pain Level8 = Severe Acceptable Pain Level4 = Moderate Expression of Pain (nonverbal)verbalization Chroni (more content not included)... Normal [facility] BASIC METABOLIC PANELon - Anion gap [Moles/Vol] 12 mmol/L Normal - 20 [facility] Comment on above: Performed By: #### B MP #### [facility] [address] [place] [address] Calcium [Mass/Vol] 8.9 mg/dL Normal 8.6 - 10.6 [facility] Comment on above: Performed By: #### B MP #### [facility] [address] [place] [address] Chloride [Moles/Vol] 104 mmol/L Normal 98 - 107 [facility] Comment on above: Performed By: #### B MP #### [facility] [address] [place] [address] Creatinine [Mass/Vol] 0.69 mg/dL Normal 0.50 - 1.05 [facility] Comment on above: Performed By: #### B MP #### [facility] [address] [place] [address] GFR- AM. >60 Normal >60 [facility] Comment on above: Result Comment: CALC ULATIONS OF ESTIMATED GFR ARE PERFORMED USING THE MDRD STUDY EQUATION FOR THE IDMS-TRACEABLE CREATININE METHODS. CLIN CHEM 2007;53:766-72 Performed By: #### B MP #### [facility] [address] [place] [address] GFR-NON AM. >60 Normal >60 [facility] Comment on above: Performed By: #### B MP #### [facility] [address] [place] [address] Glucose [Mass/Vol] 85 mg/dL Normal 74 - 99 [facility] Comment on above: Performed By: #### B MP #### [facility] [address] [place] [address] HCO3 (Bld) [Moles/Vol] 28 mmol/L Normal 21 - 32 [facility] Comment on above: Performed By: #### B MP #### [facility] [address] [place] [address] Potassium [Moles/Vol] 4.2 mmol/L Normal 3.5 - 5.3 [facility] Comment on above: Performed By: #### B MP #### [facility] [address] [place] [address] Sodium [Moles/Vol] 140 mmol/L Normal 136 - 145 [facility] Comment on above: Performed By: #### B MP #### [facility] [address] [place] [address] Urea nitrogen [Mass/Vol] 7 mg/dL Normal 6 - 23 [facility] Comment on above: Performed By: #### B MP #### [facility] [address] [place] [address] CBCon 07-12-2021 Erythrocyte distribution width (RBC) [Ratio] 13.9 % Normal 11.5 - 14.5 [facility] Comment on above: Performed By: #### C BC #### [facility] [address] [place] [address] Hematocrit (Bld) [Volume fraction] 33.8 % Low 36.0 - 46.0 [facility] Comment on above: Performed By: #### C BC #### [facility] [address] [place] [address] Hemoglobin (Bld) [Mass/Vol] 11.2 g/dL Low 12.0 - 16.0 [facility] Comment on above: Performed By: #### C BC #### [facility] [address] [place] [address] MCHC (RBC) [Mass/Vol] 33.1 g/dL Normal 32.0 - 36.0 [facility] Comment on above: Performed By: #### C BC #### [facility] [address] [place] [address] MCV (RBC) [Entitic vol] 108 fL High 80 - 100 [facility] Comment on above: Performed By: #### C BC #### [facility] [address] [place] [address] NUCLEATED RBC 0.0 /100 WBC Normal 0.0-0.0 [facility] Comment on above: Performed By: #### C BC #### [facility] [address] [place] [address] Platelets (Bld) [#/Vol] 438 10*3/uL Normal 150 - 450 [facility] Comment on above: Performed By: #### C BC #### [facility] [address] [place] [address] RBC 3.13 x10E12/L Low 4.00 - 5.20 [facility] Comment on above: Performed By: #### C BC #### [facility] [address] [place] [address] WBC (Bld) [#/Vol] 8.7 10*3/uL Normal 4.4 - 11.3 [facility] Comment on above: Performed By: #### C BC #### [facility] [address] [place] [address] Discharge Planning [id number] 07-12-2021 Discharge Planning Note2 Discharge Planning: Discharge Barriersnone Planned Dispositionhome Discharge Destinationhome AMPAC < 20no PCP/Next Provider Follow Up Scheduledyes Kopperl of Choice Explainedno Anticipated Discharge [id number] Discharge Planning 07/12/2021 @ 1540 Transitional Care Coordination Progress Note: Patient discussed during interdisciplinary rounds. Team members present: Attending and TCC Plan per Medical/Surgical team: UTI, cultures pending. PMH Stg 3 invasive SCCA. PCNT drain in place Status: observation Payor source: [facility] Plan Discharge disposition: Home with SO. Home care with [facility] just ended on 07/11. Pt declines the need for Home Care nurse. Pt independent with PCNT care. Potential Barriers: none ADOD: 07/13 Admission assessment completed at the bedside with the patient. See assessment tab for details. Pt's significant other will transport pt home when medically ready. Pari Abbott RN [phone] Transitional Strip Picker Note: 07/14/2021@ 14:47. Patient is medically ready for discharge. No home care is required. Coleen Villa RN TCC [phone] 07/14/21 5885-discussed d/c instructions with pt who verbalized understanding prior to d/c. de-accessed right chest mediport pt tolerated well. pt left unit prior to being given printed script for atb therapy. attending notified. Yolanda mckinley, staff development coordinator rn: Discharge Planning Assessment [id number] Discharge Planning Assessment Completed byPari Abbott RNTCC Primary Contact Name and NumberMATT [phone], SO Prior Level of Functioningindependent with ADLs and SO helps with iADLs Independent with PCNT drain and site care Lives Withsignificant other Living Arrangementsmobile home; 3 steps to enter mobile home. Tub shower with seat Stated Reason for AdmissionABD PAIN(1) Arrived Fromemergency department (1) PCPsin Preferred Pharmacy Name/LocationJennifer Hrud Recent Falls/ Injury/ Need Assist with Ambulationno falls, no AD DME Supplier Name/Numbernone Home Care Agency/Support Servicesnone Diabetic/Supplies Needednone Hemodialysis Schedulenone Resource/Environmental Concernsnone(1) Anticipated Transition Tohome(1) Services Anticipated at Transitionnone(1) Readmission Within the Last 30 Daysno previous admission in last 30 days PCP Last Date Seen05/2021 InsuranceUnited Community Plan Anticipated Changes Related to Illnessnone Equipment Needed After Dischargenone Anticipated Discharge Facility/Level of Care NeedsHome Discharge Planning Commentsaddress/phone verified Social Determinants of Health Identifiednone Transportation Home Who/HowSignificant other will tx pt home Sister of SO take pt to appointments Medication Adherence/Afford/Obtainy es O2 LPMnone Electronic Signatures: Coleen Villa (CLIN COOR) (Signed 14-Jul-2021 14:48) Authored: Discharge Planning Yolanda Ventura (RN) (Signed 14-Jul-2021 16:55) Authored: Discharge Planning Pari Abbott (CLIN COOR) (Signed 12-Jul-2021 15:41) Authored: Discharge Planning, Assessment Last Updated: 14-Jul-2021 16:55 by Yolanda Ventura (RN) References: 1. Data Referenced From Patient Profile - Adult v2 12-Jul-2021 00:17 Normal [facility] HCG,URINEon 07-12-2021 Beta HCG ( test) Ql (U) Negative Normal Negative [facility] Comment on above: Performed By: #### U [facility] #### [facility] [address] [place] [address] Nutrition Therapy-Assessment on 07-12-2021 Nutrition Therapy-Assessment Assessment Subjective/Objective: Note Type: Assessment Note Authored by: Registered Dietitian Outcomes Specialist Pager Number: [phone] Nutrition Note: The patient is a 30 year old Female admitted with left ureteral stricture with decreased urine output. 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 Nutrition consulted per nursing admission risk screen for MST >2. Medical Surgical History: as outlined above Objective Information: Intake Output Enteral - Oral 220 mL Urine 600 mL IV Fluids 90 mL Height/Weight: Height in cm: 167.6 centimeter(s) Weight (kg): 48.6 BMI (kg/m2): 17.301 square meter DBW (kg): 59.1 %DBW: 82 Weight history/ % weight change: Reports UBW of ~ 75 kg with significant wt loss over the last year 2/2 cancer treatments. (~35%) Significant Weight Loss: yes Interpretation of Weight Loss: >20% in 1 year Recent Lab Results: Results: I have reviewed these laboratory results: Basic Metabolic Panel 12-Jul-2021 05:20:00 ResultValue Glucose, Serum 85 NA 140 K 4.2 CL 104 Bicarbonate, Serum 28 Anion Gap, Serum 12 BUN 7 CREAT 0.69 GFR-Non >60 GFR- >60 Calcium, Serum 8.9 Current Active Medications/PN: Docusate, Capsule (COLACE) DOSE = 100 mg Oral 2 Times a Day, 12-Jul-2021 Ondansetron Injectable, (ZOFRAN) DOSE = 4 mg IntraVenous Push Every 6 Hours, PRN Nausea and/or Vomiting, 12-Jul-2021 Nutrition Orders: Clear Liquid Diet, Routine, 12-Jul-2021 Food/Nutrition Related History: Energy Intake: poor < 50% Food/Nutrition Related History: States that she has been eating poorly due to severe nausea. Relies on family and boyfriend to purchase foods for her and states that no one cares about me anymore. Is motivated to retry oral supplements and regain weight-- states she had met with a dietitian previously, but admits she did not follow through with her recommendations. Pt was very tearful during RDN visit-- expressed she feels like cancer treatments made her crazy and that she does not like that she looks anorexic right now. GI Symptoms: nausea, vomiting Time Frame for GI Symptoms Greater Than 2 Weeks: yes Oral Problems: denies Mobility: normal activity Food Allergies Comment: FA Nutritional Supplements: has a multivitamins and a vitamin B complex vitamin her sister purchased for her Nutrition Focused Physical Findings: Subcutaneous Fat Loss: Orbital Fat Pads: Severe (Dark circles, hollowing and loose skin) Buccal Fat Pads: Severe (Hollow, sunken and narrow face) Triceps: Severe (Negligible fat tissue) Ribs: Severe (Depression between ribs very apparent, very prominent iliac crest) Muscle Wasting: Temporalis: Severe (Hollowed scooping depression) Pectoralis (Clavicular Region): Severe (Protruding prominent clavicle) Deltoid/Trapezius: Severe (Squared shoulders, acromion process prominent) Interosseous: ) Severe (Depressed area between thumb and forefinger) Trapezius/Infraspinatus/ Supraspinatus (Scapular Region): Severe (Prominent visible scapula, depression between ribs, scapula, shoulder and spine) Quadriceps: Mild-Moderate (Mild depression on inner and outer thigh) Gastrocnemius: Mild-Moderate (Not well developed muscle) Edema: Edema: none Physical Findings (nutrition deficiency/toxicity): Hair: negative Eyes: negative Mouth: negative Nails: negative Estimated Needs: kcals/day: 4103-6896 Predictive Equation Used: kcals/kg; 30-35 gms protein/day: 70+ Weight Used: actual body wt; minimum 1.5 g/kg mL fluid/day: 1 ml/kcal or per team Nutrition Diagnosis: Diagnosis1 new. Dx: Severe chronic disease or condition related malnutrition. related to cancer, inability to consume adequate calories by mouth (N/V). as evidenced by wt loss of 35% x ~1 year, severe muscle loss, and severe subcutaneous fat loss. Nutrition Interventions: Individualized Nutrition Prescription Provided for: diet Ordered Supplements: Will trial Ensure Plus 1x/day and Ensure Clear 2x/day Nutrition Education: Nutrition Education Topic: Reviewed basics of nutrition therapy for nausea/vomiting with pt and offered suggestions of meals/foods to try. Discussed utilizing [employer] for resources in her area. Education Provided to: patient Understanding of Diet: good Anticipated Compliance: fair Follow up: refer pt to outpatient nutrition therapy for follow up (likely closer to home) Nutrition Goals: Goals: Nutrition Therapy: consume prescribed supplement, electrolytes within normal limits NUTRITION R (more content not included)... Normal [facility] Order Reconciliationon 07-12 Order Reconciliation Page 1 Admission Reconciliation Document Reconciliation Type: ED to Observation requested on behalf of Shira Teran (Physician) done by Shira Teran) ED to Observation - Reconciliation: 12-Jul-2021 00:25 by: Alycia Pritchett) ED to Observation - AutoLinked: 12-Jul-2021 00:25 by: Alycia Pritchett) ED to Observation - Reset to Incomplete: 12-Jul-2021 10:54 by: Shira Teran) ED to Observation - Reconciliation: 12-Jul-2021 10:55 by: Shira Teran) Home MedicationsEnteredLast Dose TakenReconciled with current Order Reconciliation Comment/ Additional Information LORazepam 1 mg oral tablet 1 tab(s) orally 3 times a day, As [id number]-2021 PM LORazepam Tablet (ATIVAN)DOSE = 1 mg Oral Every 8 Hours, PRN AnxietyLORazepam 1 mg oral tablet continued as the inpatient order LORazepam Percocet 5/325 oral tablet orally every 4-6 hours, As [id number]-Jul-2021 Reviewed and Held Zofran 4 mg oral tablet orally every 4 hours, As [id number]- 2021 PM Reviewed and Held Documentation of outpatient medication history is incomplete. Additional Current Orders Acetaminophen Tablet (TYLENOL)DOSE = 650 mg Oral Every 4 Hours cefTRIAXone 1 gram/ Dextrose 5% IVPB Premixed Soln 50 mL (ROCEPHIN)Every 24 HoursRecommended Infusion Time: 30 minute(s) Docusate Capsule (COLACE)DOSE = 100 mg Oral 2 Times a Day Influenza Virus QUADRIVALENT (Inactive) ADULT Vaccine (FLULAVAL)DOSE = 0.5 mL IntraMuscular OnceClinician Notes: :: Must be given prior to discharge. Order entered from Admission Screen. Melatonin TabletDOSE = 3 mg Oral At Bedtime, PRN Insomnia Morphine Injectable DOSE = 2 mg IntraVenous Push Every 4 Hours, PRN Pain - Severe (7-10) Ondansetron Injectable (ZOFRAN)DOSE = 4 mg IntraVenous Push Every 6 Hours, PRN Nausea and/or Vomiting Normal [facility] Patient Profile - Adult v2on 07-12-2021 Patient Profile - Adult v2 Profile: Initial Info: How to be Addressedrachael (1) Spoken Language PreferredEnglish (1) Source of Informationpatient Stated Reason for AdmissionABD PAIN Primary Contact Name and NumberMATT [phone] Wants Family/Rep Notified of Admissionyes, primary contact Notify PCPnotify PCP Informed of Patient Visiting Rightsyes Arrived Fromemergency department Patient Belongingsremains with patient Patient Belongings Remaining with Patientvision aids; cell phone/electronics; purse/wallet; clothing Medications Brought to Hospitalyes Medication Dispositionlocked in unit medication cabinet General Health: Blood Avoidance/Restrictionsno ne(1) Weight in kg48.6 kilogram(s) Weight in tmp833.1 pound(s) Weight Methodactual (measured) Scale Typestanding Height in cm167.6 centimeter(s) Height in feet5 feet(2) Height in inches6 inch(es)(2) Height Methodstated BMI (kg/m2)17.301 square meter RSP Based Care: How would you like to participate in your careTO UNDERSTAND PLAN OF CARE What is the number one concern for you during this hospitalizationPAIN What is the most important thing we can do to support you during this hospitalizationCONTROL PAIN Is there anything we need to know to best care for youNO Substance: Smoking Statuslight user (uses <10 cig/day, OR <0.5 ppd, OR 1 can/pouch loose leaf tobacco per week, OR <0.5 vape pods per day) Tobacco Cessation Education (provide if tobacco use within the last 12 mos) patient declined Alcohol Usedenies(3) Drug Usedaily Drug 2 Usedenies Health Mgmt: Symptoms/Conditions Managed at Homerespiratory; genitourinary; gastrointestinal; chronic pain; cancer Are You no (4) Are You Currently Breastfeedingno (4) Cancer Symptoms/Conditionsbladd er; CERVICAL Cancer Management Strategiespain control Treatment Givenchemotherapy, radiotherapy Last Chemotherapy Givenmore than 90 days ago Last Radiotherapy Givenmore than 90 days ago Cancer Managementnot managed Gastrointestinal Symptoms/Conditionsreflu x/heartburn; abdominal pain Gastrointestinal Management Strategiesmedication therapy Gastrointestinal Managementnot managed Genitourinary Symptoms/Conditionsrenal disease; stones Genitourinary Management Strategiesnephrostomy tube Genitourinary Managementmanaged Chronic Pain LocationL FLANK Chronic Pain Aggravating Factorsmovement Chronic Pain Relieving Factorsmedication Chronic Pain Management Strategiesmedication therapy Chronic Pain Managementnot managed Respiratory Symptoms/Conditionsasthm a Respiratory Management Strategiesmedication therapy Respiratory Managementmanaged Relationship/Environ: Resource/Environmental Concernsnone Primary Source of Support/Comfortno one Lives Withalone Living Arrangementsmobile home Services Anticipated at Transitionnone Anticipated Transition Tohome Significant IndicatorsComplete Information Review: Allergies, Home Meds and Significant Events have been Reviewed and Verified with Patient/Familyyes ALLERGY, INTOLERANCE, ADVERSE EVENT: Allergies: No Known Allergies: Active Electronic Signatures: Rod Cruz (ROSS) (Signed 12-Jul-2021 00:30) Authored: Initial Info, General Health, RSP Based Care, Substance, Health Mgmt, Relationship/Environ, Additional Information Last Updated: 12-Jul-2021 00:30 by Rod Cruz (ROSS) References: 1. Data Referenced From Patient Profile - Procedure-H and P 02-Jul-2021 11:54 2. Data Referenced From 1. Vital Signs 11-Jul-2021 13:01 3. Data Referenced From Risk Screen - Adult Emergency 11-Jul-2021 20:39 4. Data Referenced From Triage - ED 11-Jul-2021 13:01 Normal [facility] BLOOD CULTURE, BACTERIALon 0 07-11-2021 BLOOD CULTURE, BACTERIAL PATIENT: LALY NAVAS LOCATION: [place] [address] BILL#: [id number] : 86 AGE: SEX: F ORDERED BY: LATANYA CUELLAR SOURCE: Blood COLLECTED: 07/11/21 14:43 ANTIBIOTICS AT BINA.: RECEIVED : 07/11/21 15:49 SITE: PERIPHERAL R E S U L T S BLOOD CULTURE, BACTERIAL FINAL 07/16/21 17:42 No Growth at 1 days No Growth at 2 days No Growth at 3 days No Growth at 4 days NO GROWTH - FINAL REPORT Normal [facility] Comment on above: Performed By: #### B LDC #### [facility] [address] [place] [address] BLOOD CULTURE, BACTERIAL PATIENT: LALY NAVAS LOCATION: [address]#: [id number] : 86 AGE: SEX: F ORDERED BY: LATANYA CUELLAR SOURCE: Blood COLLECTED: 07/11/21 14:42 ANTIBIOTICS AT BINA.: RECEIVED : 07/11/21 15:47 SITE: PERIPHERAL R E S U L T S BLOOD CULTURE, BACTERIAL FINAL 07/16/21 17:42 No Growth at 1 days No Growth at 2 days No Growth at 3 days No Growth at 4 days NO GROWTH - FINAL REPORT Normal [facility] Comment on above: Performed By: #### B LDC #### [facility] [address] [place] [address] CBC AND DIFFERENTIALon 07-11 % AUTOMATED IMMATURE GRAN 0.6 % Normal 0.0 - 0.9 [facility] Comment on above: Result Comment: Zoila ture Granulocyte Count (IG) includes promyelocytes, myelocytes and metamyelocytes but does not include bands. Percent differential counts (%) should be interpreted in the context of the absolute cell counts (cells/L). Performed By: #### U AMIC #### [facility] [address] [place] [address] Basophils (Bld) [#/Vol] 0.09 10*3/uL Normal 0.00 - 0.1 0 [facility] Comment on above: Performed By: #### U AMIC #### [facility] [address] [place] [address] Basophils/100 WBC (Bld) 1.0 % Normal 0.0 - 2.0 [facility] Comment on above: Performed By: #### U AMIC #### [facility] [address] [place] [address] Eosinophils (Bld) [#/Vol] 0.56 10*3/uL Normal 0.00 - 0.70 [facility] Comment on above: Performed By: #### U AMIC #### [facility] [address] [place] [address] Eosinophils/100 WBC (Bld) 6.2 % Normal 0.0 - 6.0 [facility] Comment on above: Performed By: #### U AMIC #### [facility] [address] [place] [address] Erythrocyte distribution width (RBC) [Ratio] 14.1 % Normal 11.5 - 14.5 [facility] Comment on above: Performed By: #### U AMIC #### [facility] [address] [place] [address] Hematocrit (Bld) [Volume fraction] 35.9 % Low 36.0 - 46.0 [facility] Comment on above: Performed By: #### U AMIC #### [facility] [address] [place] [address] Hemoglobin (Bld) [Mass/Vol] 12.3 g/dL Normal 12.0 - 16.0 [facility] Comment on above: Performed By: #### U AMIC #### [facility] [address] [place] [address] Lymphocytes (Bld) [#/Vol] 2.39 10*3/uL Normal 1.20 - 4.80 [facility] Comment on above: Performed By: #### U AMIC #### [facility] [address] [place] [address] Lymphocytes/100 WBC (Bld) 26.5 % Normal 13.0 - 44.0 [facility] Comment on above: Performed By: #### U AMIC #### [facility] [address] [place] [address] MCHC (RBC) [Mass/Vol] 34.3 g/dL Normal 32.0 - 36.0 [facility] Comment on above: Performed By: #### U AMIC #### [facility] [address] [place] [address] MCV (RBC) [Entitic vol] 106 fL High 80 - 100 [facility] Comment on above: Performed By: #### U AMIC #### [facility] [address] [place] [address] Monocytes (Bld) [#/Vol] 0.79 10*3/uL Normal 0.10 - 1.0 0 [facility] Comment on above: Performed By: #### U AMIC #### [facility] [address] [place] [address] Monocytes/100 WBC (Bld) 8.8 % Normal 2.0 - 10.0 [facility] Comment on above: Performed By: #### U AMIC #### [facility] [address] [place] [address] Neutrophils (Bld) [#/Vol] 5.13 10*3/uL Normal 1.20 - 7.70 [facility] Comment on above: Performed By: #### U AMIC #### [facility] [address] [place] [address] Neutrophils/100 WBC (Bld) 56.9 % Normal 40.0 - 80.0 [facility] Comment on above: Performed By: #### U AMIC #### [facility] [address] [place] [address] NUCLEATED RBC 0.0 /100 WBC Normal 0.0-0.0 [facility] Comment on above: Performed By: #### U AMIC #### [facility] [address] [place] [address] Platelets (Bld) [#/Vol] 477 10*3/uL High 150 - 450 [facility] Comment on above: Performed By: #### U AMIC #### [facility] [address] [place] [address] RBC 3.38 x10E12/L Low 4.00 - 5.20 [facility] Comment on above: Performed By: #### U AMIC #### [facility] [address] [place] [address] WBC (Bld) [#/Vol] 9.0 10*3/uL Normal 4.4 - 11.3 [facility] Comment on above: Performed By: #### U AMIC #### [facility] [address] [place] [address] COMPREHENSIVE PANELon 2020 Albumin [Mass/Vol] 4.0 g/dL Normal 3.4 - 5.0 [facility] Comment on above: Performed By: #### B MP #### [facility] [address] [place] [address] ALP [Catalytic activity/Vol] 65 U/L Normal 33 - 110 [facility] Comment on above: Performed By: #### B MP #### [facility] [address] [place] [address] ALT [Catalytic activity/Vol] 4 U/L Low 7 - 45 [facility] Comment on above: Result Comment: Sarah ents treated with Sulfasalazine may generate falsely decreased results for ALT. Performed By: #### B MP #### [facility] [address] [place] [address] Anion gap [Moles/Vol] 15 mmol/L Normal 10 - 20 [facility] Comment on above: Performed By: #### B MP #### [facility] [address] [place] [address] AST [Catalytic activity/Vol] 11 U/L Normal 9 - 39 [facility] Comment on above: Performed By: #### B MP #### [facility] [address] [place] [address] Bilirubin [Mass/Vol] 0.4 mg/dL Normal 0.0 - 1.2 [facility] Comment on above: Performed By: #### B MP #### [facility] [address] [place] [address] Calcium [Mass/Vol] 9.1 mg/dL Normal 8.6 - 10.6 [facility] Comment on above: Performed By: #### B MP #### [facility] [address] [place] [address] Chloride [Moles/Vol] 104 mmol/L Normal 98 - 107 [facility] Comment on above: Performed By: #### B MP #### [facility] [address] [place] [address] Creatinine [Mass/Vol] 0.69 mg/dL Normal 0.50 - 1.05 [facility] Comment on above: Performed By: #### B MP #### [facility] [address] [place] [address] GFR- AM. >60 Normal >60 [facility] Comment on above: Result Comment: CALC ULATIONS OF ESTIMATED GFR ARE PERFORMED USING THE MDRD STUDY EQUATION FOR THE IDMS-TRACEABLE CREATININE METHODS. CLIN CHEM 2007;53:766-72 Performed By: #### B MP #### [facility] [address] [place] [address] GFR-NON AM. >60 Normal >60 [facility] Comment on above: Performed By: #### B MP #### [facility] [address] [place] [address] Glucose [Mass/Vol] 79 mg/dL Normal 74 - 99 [facility] Comment on above: Performed By: #### B MP #### [facility] [address] [place] [address] HCO3 (Bld) [Moles/Vol] 23 mmol/L Normal 21 - 32 [facility] Comment on above: Performed By: #### B MP #### [facility] [address] [place] [address] Potassium [Moles/Vol] 3.8 mmol/L Normal 3.5 - 5.3 [facility] Comment on above: Performed By: #### B MP #### [facility] [address] [place] [address] Protein [Mass/Vol] 6.4 g/dL Normal 6.4 - 8.2 [facility] Comment on above: Performed By: #### B MP #### [facility] [address] [place] [address] Sodium [Moles/Vol] 138 mmol/L Normal 136 - 145 [facility] Comment on above: Performed By: #### B MP #### [facility] [address] [place] [address] Urea nitrogen [Mass/Vol] 8 mg/dL Normal 6 - 23 [facility] Comment on above: Performed By: #### B MP #### [facility] [address] [place] [address] COOX PANEL,VENOUSon 07-11-20 21 CO HGB 5.0 % Abnormal [facility] Comment on above: Result Comment: REF VALUES NONSMOKERS 0.5-1.5% SMOKERS 0.5-10.0% Performed By: #### C OOXV ####[id number] [place] [address] MET HGB 0.6 % Normal 0.0 - 1.5 [facility] Comment on above: Performed By: #### C OOXV ####[id number] [address] CORONAVIRUS 2019 BY PCRon SARS-CoV-2 (COVID-19) RNA SUZI+probe Ql (Unsp spec) Not detected Normal Not Detected [facility] Comment on above: Result Comment: . This test has received FDA Emergency Use Authorization (EUA) and has been verified by [facility] ([facility]). This test is only authorized for the duration of time that circumstances exist to justify the authorization of the emergency use of in vitro diagnostic tests for the detection of SARS-CoV-2 virus and/or diagnosis of COVID-19 infection under section 564(b)(1) of the Act, 21 U.S.C. 360bbb-3(b)(1), unless the authorization is terminated or revoked sooner. [facility] is certified under CLIA-88 as qualified to perform high complexity testing. Testing is performed in the [facility] located at [address] [place] [address]. SARS-CoV-2/Flu/RSV Multiplex Test: Fact sheet for providers: https://www.fda.gov/media/668365/download Fact sheet for patients: https://www.fda.gov/media/629271/download Performed By: #### U AMI #### [facility] [address] [facility] [place] [address] Lab Specimen Source Nasal, Nasopharyngeal Normal [facility] Comment on above: Performed By: #### U AMI #### [facility] [address] [facility] [place] [address] DATE OF SYMPTOM ONSET [YYYYMMDD]? [id number] Normal [facility] Comment on above: Performed By: #### U [facility] #### [facility] [address] [place] [address] Consult-Urologyon 07-11-2021 Consult-Urology Service: Service: Urology Consult: Consult requested by (Attending Name): ED Reason: Patient of Dr. Plummer with know L ureteral stricture now with decreased urine output History of Present Illness: HPI: LALY NAVAS is a 30 year old Female with PMHx significant for stage IIIB invasive squamous cell carcinoma (dx April 2020, s/p cisplatin and whole pelvic radiation) c/b left sided hydronephrosis secondary to a left distal ureteral stricture (regular L PCNT exchanges, recently had a balloon dilatation of distal left ureter and internalization of PCNT on 07/02/21 w/ IR), and recurrent UTIs (no prophylactic abx currently). Patient presents to ED with bilateral flank pain (worse on L side), non-bloody diarrhea, nausea/vomiting, and decreased UOP, for which Urology is consulted. Patient states she recently went to urgent care for evaluation of a UTI and discharge with oral Ciprofloxacin that she hasn't been able to take due to nausea and vomiting. Per patient, she has a history of stomach ulcers that have prevented her from using oral antibiotics in the past due to similar symptoms. She endorses dysuria, hematuria per neph bag (the first few days after her procedure 07/02), urgency, frequency, sensation of incomplete bladder emptying, low urine output, fevers, chills, anorexia She denies CP, SOB. Past Medical/Surgical History: Reviewed per EMR, pertinent listed in HPI Family History: non-contributory Social History: Reviewed per EMR no pertinent history noted Medications Reviewed per EMR, documented below Allergies: NKDA Allergies: No Known Allergies: Objective: Objective Information: T PRBPSpO2 [id number]/9799% Date/Time07/11 13: 13: 13: 13: 13:01 Range(36.8C - 36.8C ) (103 - 103 ) (18 - 18 ) (134 - 134 )/ (97 - 97 ) (99% - 99% ) Pain reported at 07/11 13:01: 8 = Severe Physical Exam by System: Constitutional: Well developed, awake/alert/oriented x3, no distress, alert and cooperative Eyes: PERRL, EOMI, clear sclera Head/Neck: NCAT Respiratory/Thorax: nonlabored breathing ORA Cardiovascular: Tachycardic Gastrointestinal: Nondistended, soft, TTP in suprapubic area, no rebound tenderness or guarding. Genitourinary: L CVA tenderness, L nephrostomy tube in place with clear yellow urine; easily flushed Musculoskeletal: DELONTE Extremities: No cyanosis or edema noted Psychological: Appropriate mood and behavior Skin: Warm and dry, no lesions, no rashes. L PCNT in place with no erythema, or drainage noted. Medications: Medications: Continuous Medications -------- No continuous medications are active Scheduled Medications -------- 1. Lactated Ringers IV Bolus: 1000 mL IntraVenous Piggyback Once PRN Medications -------- No PRN medications are active Recent Lab Results: Results: I have reviewed these laboratory results: Complete Blood Count + Differential 11-Jul-2021 14:42:00 ResultValue White Blood Cell Count 9.0 Nucleated Erythrocyte Count 0.0 Red Blood Cell Count 3.38 L HGB 12.3 HCT 35.9 L MCV 106 H MCHC 34.3 PLT 477 H RDW-CV 14.1 Neutrophil % 56.9 Immature Granulocytes % 0.6 Lymphocyte % 26.5 Monocyte % 8.8 Eosinophil % 6.2 Basophil % 1.0 Neutrophil Count 5.13 Lymphocyte Count 2.39 Monocyte Count 0.79 Eosinophil Count 0.56 Basophil Count 0.09 COOX Panel, Venous 11-Jul-2021 14:40:00 ResultValue CO Hgb, Venous 5.0 A Met Hgb, Venous 0.6 Venous Full Panel 11-Jul-2021 14:40:00 ResultValue pH, Venous 7.42 pCO2, Venous 38 L pO2, Venous 37 Patient-Temperature 37.0 SO2, Venous 76 H HCT 38.0 Sodium-Level 135 L Potassium-Level 3.8 Chloride-Level 106 Calcium, Ionized-Level 1.21 Glucose-Level 84 Lactate-Level 0.8 Base Excess-Blood 0.3 Bicarbonate, Calculated, Venous 24.6 HGB, Calculated 12.9 Anion Gap-Level 8 L Assessment: LALY NAVAS is a 30 year old Female with PMHx significant for stage IIIB invasive squamous cell carcinoma (dx April 2020, s/p cisplatin and whole pelvic radiation) c/b left sided hydronephrosis secondary to a left distal ureteral stricture (regular L PCNT exchanges, recently had a balloon dilatation of distal left ureter and internalization of PCNT on 07/02/21 w/ IR), and recurrent UTIs (no prophylactic abx currently). Patient presents to ED with bilateral flank pain (worse on L side), non-bloody diarrhea, nausea/vomiting, and decreased UOP, for which Urology is consulted. Patient states she recently went to urgent care for evaluation of a UTI and discharge with oral Ciprofloxacin that she hasn't been able to take due to severe nausea. She otherwise denies any dysuria, hematuria, urgency, frequency, sensation of incomplete bladder emptying, fevers, chills, CP, SOB. Patient currently afebrile, normotensi (more content not included)... Normal [facility] Covid 19 Resultson 1 SARS-CoV-2 (COVID-19) RNA SUZI+probe Ql (Unsp spec) NEGATIVE COVID-19 Test Coronaviruses are common world-wide and are the cause of many common colds. SARS-COV2 is a new coronavirus that began circulating worldwide in 2019 so we are calling it COVID-19. It has been estimated that four out of five patients with COVID-19 will recover at home without the need for medical attention. Symptoms of COVID-19 may include cough, fever, shortness of breath, loss of taste or smell and other flu-like symptoms including chills, sore muscles, sore throat, and headache. Severe illness is more common in older people and people with other health problems such as high blood pressure, obesity, and immune system problems. If the test is positive, you have COVID-19. You will be contacted by the ordering physicians office and instructed to remain on home isolation, in accordance with CDC guidelines. You may also be contacted by the [facility] to see if any of your close contacts may have been exposed to the virus and need to quarantine. If the test is negative, you likely do not have COVID-19 at this time, but you still may have a different illness that can spread to other people (like Influenza, or the Flu) and could still be at risk for getting COVID-19. We recommend that you stay away from other people to limit the spread of illness until your symptoms are improving and you are fever-free for 24 hours without the use of fever lowering medications such as acetaminophen or ibuprofen. No test is 100% accurate so if you are still concerned you may have COVID-19, talk to your doctor about the need to continue to stay away from others. Medicines Unless your provider told you not to use the following: Acetaminophen (Tylenol and others) is generally safe. Anti-inflammatory medications, such as Ibuprofen (Advil or Motrin) or Naproxen (Aleve) can also be used. Ionx-klc-qiuboic cough and cold medicines can be used according to the instructions on the package. Some intj-bkm-aekopyq medicines also contain acetaminophen. Make sure you are not taking more than your recommended dose. For those not hospitalized, there is no specific treatment available for this illness. Antibiotics do not treat Coronaviruses. Follow-Up Follow up with your doctor by scheduling a virtual visit or consider follow-up at one of our urgent care fever clinics. If you are having difficulty breathing, or are very weak and having difficulty standing, this is a medical emergency. Call 911 or have someone take you to the nearest emergency room immediately. If possible, wear a facemask. Additional guidance from the CDC for patients who tested POSITIVE for COVID-19 How to isolate: Isolate yourself in a specific room at home and limit your contact with others. Use a separate bathroom from other members of the household, when possible. Leave home only to get essential medical care. Do not go to work, school or public areas. Avoid using public transportation, ride-sharing, or taxis. Restrict contact with pets and other animals. If you must care for your pet or be around animals while you are sick, wash your hands before and after your interaction and wear a facemask. Make sure that shared spaces in the home have good airflow, such as by an air conditioner or an opened window, weather permitting. Personal Hygiene Procedures: Wear a face mask when in the same room as other people or pets. If a face mask interferes with your breathing, others should wear a mask when sharing space with you. Frequent hand-washing: wash your hands with soap and water for at least 20 seconds. If soap and water are not available, use alcohol-based hand moshgiach. Avoid touching your eyes, nose, and mouth with unwashed hands. Household Hygiene Procedures: Avoid sharing personal household items such as dishes, glassware, cups, eating utensils, towels or bedding with other people or pets in your home. After use, these items should be washed with soap and hot water. Disinfect all high-touch surfaces every day with antibacterial cleaning solutions such as Lysol wipes, bleach, cleansers, etc. High-touch surfaces include tabletops, doorknobs, bathroom fixtures, toilets, phones, keyboards, tablets and bedside tables. Immediately clean any surfaces that may have blood, poop or body fluids on them, using antibacterial cleaning solutions such as Lysol wipes, bleach, cleansers, etc. If clothing or bedding come into contact with blood, poop or body fluids, they should be washed immediately. Follow the directions on the laundry detergent and clothing labels but hot water is recommended when possible. Stopping home isolation precautions: If possible, consult your doctor before stopping home isolation precautions. According to the CDC, you can discontinue home isolation precautions when you have met both of these criteria: Your fever and respiratory symptoms have been gone for 24 liu (more content not included)... Normal [facility] Culture, Blood (WB)on 2020 CUB No growth in 5 days. Normal [facility] Comment on above: Performed By: #### M 200.1000 #### [facility] [address] [place], [place], [id number] Provider Note - ED v3on Provider Note - ED v3 Provider Note: Chart Review: ED NOTES ED NOTES: HPI: 30-year-old female patient with past medical history of cervical cancer in remission s/p cisplastin and radiation, L nephrostomy tube balloon dilatation of the distal left ureter on 07/02 presents to the emergency department for UTI. Patient states she developed symptoms of UTI today after her procedure, went to her local urgent care and was sent home with oral ciprofloxacin. Patient states she has been continuously throwing up since taking the antibiotics, has not been able to down. Patient reports pain to bilateral flank pain, worse on the left side that radiates to her lower abdomen. Also endorses diarrhea, non bloody. Patient states she has not been urinating this week, has about 100 ml in her nephrostomy bag today. Patient denies fever, chest pain, cough, shortness of breath, dizziness, syncope. Past Medical/Surgical History: Reviewed per EMR, pertinent listed in HPI Family History: per EMR Social History: Patient denies any alcohol, tobacco, recreational or illicit drug use Medications Reviewed per EMR, documented below Allergies reviewed per EMR Review of Systems A complete 10 point review of systems was performed and is negative except for as mentioned in the HPI. Physical Exam General: Alert, no apparent distress, answers questions appropriately Skin: No acute rash or wound. HEENT: Head is atraumatic. PERRLA, EOMs intact. Pharynx moist without lesions, erythema, or exudates, tongue distends midline, uvula raises midline. Neck: Symmetrical, full ROM. No lymphadenopathy Respiratory: Clear to auscultation without wheezes, rubs, ronchi, or crackles b/l. Palpation without tenderness. No accessory muscle use. Cardiovascular: Regular rate and rhythm Abdominal: Tenderness with palpation over suprapubic region, + BS. + b/l CVA tenderness. L nephrostomy tube in place, no surrounding erythema, edema or draiange of skin. Otherwise abdomen is soft, non distended, no guarding or rebound. Musculoskeletal: Full weight bearing, No joint effusions, bone deformity, clubbing or edema. Pulses and senses intact and equal b/l Neurologic: Patient follow commands, A/O X3, CN II-XII intact Medical Decision Making/ED Course 30-year-old female patient with past medical history of cervical cancer in remission s/p cisplastin and radiation, L nephrostomy tube balloon dilatation of the distal left ureter on 07/02 presents for UTI. On presentation, patient is well-appearing, in no acute distress. Patient is afebrile, HR 103, hemodynamically stable. This with palpation over bilateral flank region, worse on the left side and radiates to her lower abdomen. Left nephrostomy tube in place, no overlying skin changes. CBC, CMP and blood cultures obtained. Urine sent for urinalysis and culture. Patient started on 1 g Rocephin, 1 L LR x2. Patient given morphine, dilaudid, zofran for pain and nausea. Urine analysis shows large amount leukocyte esterase, >182 white cells, 9 RBCs, + bacteria. Urine culture pending. Bladder scan shows 100 ml. CBC CMP grossly unremarkable. Urology evaluated patient and recommends continued IV fluids and antibiotics. IR is to see the patient either in the ED or on the floor. Clinical presentation likely consistent with UTI. Findings were discussed with patient and patient agreeable for hospital admission for continued observation and treatment. This patient was staffed with ED Attending Dr. Arias to review the plan of care during ED course. *Please note that portions of this note may have been completed with a voice recognition program. Efforts were made to edit the dictations but occasionally, words are mis-transcribed. HISTORY OF PRESENTING ILLNESS LALY is a 30 year old Female and was seen by me at 11-Jul-2021 13:13 for a chief complaint of urinary symptoms . Other complaints include: stent and balloon placed in L kidney 07/[address] 3- dev UTI following day- started on abx but has been vomiting since(1). Triage Information: Most recent Vital Sign Value Date Temp (F): 98.2 07-11-2021 13:01 Temp (C): 36.8 07-11-2021 13:01 Heart Rate (beats/min): 103 07-11-2021 13:01 Respirations (breaths/min): 18 07-11-2021 13:01 SpO2 (%): 99 07-11-2021 13:01 BP Systolic (mm Hg): 134 07-11-2021 13:01 BP Diastolic (mm Hg): 97 07-11-2021 13:01 PAST MEDICAL HISTORY ALLERGIES/INTOLERANCES: No Known Allergies HEALTH HISTORY: No documented data. OUTPATIENT MEDICATIONS: Home Medications Review Status for Reconciliation: Incomplete Med Status: Incomplete Medication History Drug Name: LORazepam 1 mg oral tablet Instructions: 1 tab(s) orally 3 times a day, As Needed Drug Name: Zofran 4 mg oral tablet Instructions: orally every 4 hours, As Needed Drug Name: Percocet 5/325 oral tablet Instructions: orally every 4-6 hours, As Needed SIGNIFICANT EVENTS: (more content not included)... Normal [facility] Risk Screen - Adult Emergenc yon 07-11-2021 Risk Screen - Adult Emergency Preferred Language: Preferred Language: Preferred Language for Discussing Health Care (patient/designee)Pau nieves Advanced Directives: Advance Directive/DNRno Family Violence Adult: Abuse Screen: Are you or have you been threatened or abused physically, emotionally, or sexually by anyoneno Learning Assessment (Patient): Learning Assessment (Patient): Patient is Able to be Assessed for Learningyes Factors Influencing Readiness to Learnacuteness of illness; motivation to learn Factors that Impact Ability to Learnnone Devices/Methods Used to Communicatenone Learning Preferenceswritten material; verbal instruction Cultural Considerationsnone Developmental Considerationsnone Latter Day Considerationsnone Learning Assessment (Other Learner): Learning Assessment (Other Learner): Other learner availableno Pressure Injury/TB/Substance: Pressure Injury: Pressure Injury Present on Admissionno Do you have a coughno Smoking Statusnever smoker Alcohol Usedenies Resources OfferedThrive consult ( for ED's that have services) Admission Risk Screen: Significant IndicatorsComplete CAGE: CAGE: Is this an injured patient at a Trauma Center ([facility]/[place] /[place]): yes C: Have you ever felt you needed to Cut down on your drinking: no A: Have people Annoyed you by criticizing your drinking: no G: Have you ever felt Guilty about drinking: no E: Have you ever felt you needed a drink first thing in the morning (Eye-youth nutritional monitor) to steady your nerves or to get rid of hangover: no Electronic Signatures: Elkin Almanza (JAMAL) (Signed 11-Jul-2021 20:40) Authored: Preferred Language, Advanced Directives, Family Violence Adult, Learning Assessment (Patient), Learning Assessment (Other Learner), Pressure Injury/TB/Substance, Pressure Injury, CAGE Last Updated: 11-Jul-2021 20:40 by Elkin Almanza (JAMAL) [facility] Triage - EDon 07-11-2021 Triage - ED Quick Triage: Are You no Have You Given In The Last 6 Weeksno Are You Currently Breastfeedingno Chart Review: ARRIVAL INFORMATION Mode of Arrival: private vehicle CHIEF COMPLAINT LALY NAVAS is a Female patient with a chief complaint of urinary symptoms. Other Complaints: stent and balloon placed in L kidney 07/[address] 3- dev UTI following day- started on abx but has been vomiting since Triage Date/Time: 11-Jul-2021 13:01 MANUELA: 3 Pain Rating (0-10): 8 = Severe Vital Signs: Temperature: 98.2F ( 36.8C) Blood Pressure: 134/97 Mean: Heart Rate: 103 Respiratory Rate: 18 Pulse Oximetry: 99% Height: 5 feet 6.00 inches. 167.6 CM Weight: 105.8 pounds. Calculated 48.0 kg. (stated) Calculated BMI (kg/m2): 17.088 Calculated BSA (m2) 1.49 [place] Coma Scale: Best Eye Response: (E4) spontaneous Best Motor Response: (M6) obeys commands Best Verbal Response: (V5) oriented [place] Score: 15 [place] Assessment Qualifiers: patient not sedated/intubated and no eye obstruction present Cough lasting greater than 3 weeks: no Allergies: no Mask applied: yes Patient has homicidal thoughts: no Risk Screens Suicide Risk Screen In the Past Month: Have you wished you were or wished you could go to sleep and not wake up no In the Past Month: Have you had any actual thoughts of killing yourself no In Your Lifetime: Have you ever done anything, started to do anything, or prepared to do anything to end your life no Mina Fall Scale Screening Has the patient fallen before (or is the patient in the ED as a result of a fall) has not had a fall Does the patient have an impaired gait does not have impaired gait Is the patient cognitively impaired not cognitively impaired Interventions: Mina Fall Interventions: LOW INTERVENTIONS: *patient oriented to surroundings and call system, * patient/family falls education completed and documented, *patients fall status communicated during bedside handoff, *whiteboard updated, *mode of toileting discussed with patient, *bed in low position with brakes locked, *call light in reach, * non-skid footwear TRAVEL HISTORY Travel History Coronavirus Screening: no exposure or symptoms Travel Exposure History: NO travel to International locations in the past 30 days PAIN Pain Scale Used: ROWENA Pain Rating (0-10): 8 = Severe Past Medical History: Past Medical History Reviewedyes nephrostomy tube and stent L kidney: Past Surgical History, Active cervical cancer st 3: Past Medical History, Active Electronic Signatures: David Riggins (RN) (Signed 11-Jul-2021 13:06) Entered: Risk Screens, Pain, Travel History, Chart Review, Past Medical History Authored: Quick Triage, Risk Screens, Pain, Travel History, Chart Review, Past Medical History Last Updated: 11-Jul-2021 13:06 by David Riggins (RN) [facility] UA MICROSCOPICon 07-11-2021 BACTERIA 1+ /HPF Abnormal [facility] Comment on above: Performed By: #### U AMIC #### [facility] [id number] [place] [address] Mucus Ql (Urine sed) 4+ /LPF [facility] Comment on above: Performed By: #### U AMIC #### [facility] [address] [place] [address] RBC 9 /HPF Abnormal 0-5 [facility] Comment on above: Performed By: #### U AMIC #### [facility] [address] [place] [address] WBC (U) [#/Vol] /uL Abnormal 0-5 [facility] Comment on above: Performed By: #### U AMIC #### [facility] [address] [place] [address] WBC CLUMPS OCC [facility] Comment on above: Performed By: #### U AMIC #### [facility] [address] [place] [address] Lab Specimen Source [facility] Comment on above: Performed By: #### U AMIC #### [facility] [address] [place] [address] Performed By: #### B MP #### [facility] [address] [place] [address] URINALYSIS WITH CULTURE IF I NDICATEDon 07-11-2021 Appearance (U) HAZY Normal CLEAR [facility] Comment on above: Performed By: #### B MP #### [facility] [address] [place] [address] Bilirubin Ql (U) Negative Normal NEGATIVE [facility] Comment on above: Performed By: #### B MP #### [facility] [address] [place] [address] Color (U) YELLOW Normal STRAW,YELLO W [facility] Comment on above: Performed By: #### B MP #### [facility] [address] [place] [address] Glucose Ql (U) Negative Normal NEGATIVE [facility] Comment on above: Performed By: #### B MP #### [facility] [address] [place] [address] Hemoglobin Ql (U) SMALL (1+) Abnormal NEGATIVE [facility] Comment on above: Performed By: #### B MP #### [facility] [address] [place] [address] Ketones Ql (U) Negative Normal NEGATIVE [facility] Comment on above: Performed By: #### B MP #### [facility] [address] [place] [address] Leukocyte esterase Test strip Ql (U) LARGE (3+) Abnormal NEGATIVE [facility] Comment on above: Performed By: #### B MP #### [facility] [address] [place] [address] Nitrite Ql (U) Positive Abnormal NEGATIVE [facility] Comment on above: Performed By: #### B MP #### [facility] [address] [place] [address] pH (U) 6.0 [pH] Normal 5.0 - 8.0 [facility] Comment on above: Performed By: #### B MP #### [facility] [address] [place] [address] Protein Ql (U) 100 (2+) Abnormal NEGATIVE [facility] Comment on above: Performed By: #### B MP #### [facility] [address] [place] [address] Specific gravity (U) [Rel density] 1.010 Normal 1.005 - 1.035 [facility] Comment on above: Performed By: #### B MP #### [facility] [address] [place] [address] Urobilinogen (U) [Mass/Vol] mg/dL Normal 0.0 - 1.9 [facility] Comment on above: Performed By: #### B MP #### [facility] [address] [place] [address] URINE CULTURE,BACTERIALon URINE CULTURE,BACTERIAL PATIENT: LALY NAVAS LOCATION: [facility] BILL#: [id number] : 86 AGE: SEX: F ORDERED BY: LATANYA CUELLAR SOURCE: URINE COLLECTED: 07/11/21 15:06 ANTIBIOTICS AT BINA.: RECEIVED : 07/11/21 16:38 SITE: R E S U L T S URINE CULTURE,BACTERIAL FINAL 07/13/21 13:34 ISOLATE1 : Escherichia coli >100,000 CFU/ML EXTENDED SPECTRUM BETA LACTAMASE (ESBL) PRODUCING STRAIN. ISOLATE2 : Escherichia coli >100,000 CFU/ML SECOND MORPHOLOGY EXTENDED SPECTRUM BETA LACTAMASE (ESBL) PRODUCING STRAIN. Organism E coli E coli Antibiotic BP INTRP BP INTRP Ampicillin R R Amox/Clavulanate I I Aztreonam R R Ceftriaxone R R Ceftazidime R R Cefotaxime R R Cefazolin R R Ciprofloxacin R R Cefepime R R Nitrofurantoin S S Gentamicin S S Levofloxacin R R Meropenem S S Piperc/Tazobact S S Trimeth/Sulfa S S Cefuroxime R R S=SUSCEPTIBLE I=INTERMEDIATE R=RESISTANT SDD=SUSCEPTIBLE DOSE DEPENDENT NS=NONSUSCEPTIBLE X=REPORTED IN ERROR [facility] Comment on above: Performed By: #### U [facility] #### [facility] [address] [place] [address] VENOUS FULL PANELon 07-11-20 Anion gap [Moles/Vol] 8 mmol/L Low 10 - 25 [facility] Comment on above: Performed By: #### V FPA3 ####[id number] [place] [address] BASE EXCESS-BLOOD 0.3 mmol/L Normal -2.0 - 3.0 [facility] Comment on above: Performed By: #### V FPA3 ####[id number] [place] [address] BICARB, CALCULATED 24.6 mmol/L Normal 22.0 - 26.0 [facility] Comment on above: Performed By: #### V FPA3 ####[id number] [place] [address] CALCIUM,IONIZED 1.21 mmol/L Normal 1.10 - 1.33 [facility] Comment on above: Performed By: #### V FPA3 ####[id number] [place] [address] Chloride [Moles/Vol] 106 mmol/L Normal 98 - 107 [facility] Comment on above: Performed By: #### V FPA3 ####[id number] [place] [address] Glucose [Mass/Vol] 84 mg/dL Normal 74 - 99 [facility] Comment on above: Performed By: #### V FPA3 ####[id number] [place] [address] Hematocrit (Bld) [Volume fraction] 38.0 % Normal 36.0 - 46.0 [facility] Comment on above: Performed By: #### V FPA3 ####[id number] [place] [address] HGB,CALCULATED 12.9 g/dL Normal 12.0 - 16.0 [facility] Comment on above: Performed By: #### V FPA3 ####[id number] [place] [address] Lactate [Moles/Vol] 0.8 mmol/L Normal 0.4 - 2.0 [facility] Comment on above: Performed By: #### V FPA3 ####[id number] [place] [address] Oxygen (Bld) [Partial pressure] 37 mm[Hg] Normal 35 - 45 [facility] Comment on above: Performed By: #### V FPA3 ####[id number] [place] [address] PATIENT TEMPERATURE 37.0 degrees C Normal [facility] Comment on above: Result Comment: NOTE : PATIENT RESULTS ARE NOT CORRECTED FOR TEMPERATURE. Performed By: #### V FPA3 ####[id number] [place] [address] PCO2 38 mmHg Low 41 - 51 [facility] Comment on above: Performed By: #### V FPA3 ####[id number] [place] [address] pH (Bld) 7.42 [pH] Normal 7.33 - 7.43 [facility] Comment on above: Performed By: #### V FPA3 ####[id number] [place] [address] Potassium [Moles/Vol] 3.8 mmol/L Normal 3.5 - 5.3 [facility] Comment on above: Performed By: #### V FPA3 ####[id number] [place] [address] SO2 76 % High 45 - 75 [facility] Comment on above: Performed By: #### V FPA3 ####[id number] [place] [address] Sodium [Moles/Vol] 135 mmol/L Low 136 - 145 [facility] Comment on above: Performed By: #### V FPA3 ####[id number] [place] [address] CONVERT NEPHROSTOMY CATH-NEP HROURETERAL CATH,PERC INCLUDE NEPHROSTO/URETEROGRAM W/IMAGE GUIDEon 07-02-2021 CONVERT NEPHROSTOMY CATH-NEPHROURETERAL CATH,PERC INCLUDE NEPHROSTO/URETEROGRAM W/IMAGE GUIDE Patient Name: LALY NAVAS STUDY: CONVERT NEPHROSTOMY CATH-NEPHROURETERAL CATH,PERC INCLUDE NEPHROSTO/URETEROGRAM W/IMAGE GUIDE; DIL/NEPH/URE; DIL/URETER; 07/02/2021 1:26 pm INDICATION: left nephrostomy tube/hydronephrosis. The patient is a 30-year-old female with history of cervical cancer status post chemotherapy and radiation in 2019 which was complicated by distal left ureteral stricture. Patient is status post left percutaneous nephrostomy tube placement in 2019. Attempt was made by urology to place a double-J stent, however the patient was not able to tolerate the stent due to extensive pain and the stent was removed after 2 months. Capping trial was started on 06/14/2021, which was unsuccessful and patient developed left flank pain in the nephrostomy tube was connected to the urinary bag. The patient presented today for antegrade nephrostogram, possible distal ureteral balloon dilatation and conversion of the nephrostomy to a nephroureteral catheter or ureteral stent. COMPARISON: None. ACCESSION NUMBER(S): [id number]; [id number]; [id number] ORDERING CLINICIAN: POLO PLUMMER TECHNIQUE: INTERVENTIONALIST(S): Attending: Dr. Rohith Howard Resident: Dr. Perla Esqueda CONSENT: The patient/patient's POA/next of kin was informed of the nature of the proposed procedure. The purposes, alternatives, risks, and benefits were explained and discussed. All questions were answered and consent was obtained. RADIATION EXPOSURE: Fluoroscopy time: 12.5 min. Dose: 43.82 mGy. Dose Area Product (DAP): 7604 mGy cm2 SEDATION: Moderate conscious IV sedation services (supervision of administration, induction, and maintenance) were provided by the physician performing the procedure with intravenous fentanyl 300 mcg and versed 4 mg for 60 minutes. The physician was assisted by an independent trained observer, an interventional radiology nurse, in the continuous monitoring of patient level of consciousness and physiologic status. MEDICATION/CONTRAST: Optiray 320, 20 mL Ciprofloxacin 400 mg IV TIME OUT: A time out was performed immediately prior to procedure start with the interventional team, correctly identifying the patient name, date of , MRN, procedure, anatomy (including marking of site and side), patient position, procedure consent form, relevant laboratory and imaging test results, antibiotic administration, safety precautions, and procedure-specific equipment needs. COMPLICATIONS: No immediate adverse events identified. FINDINGS: Maximum sterile barrier technique was implemented. Initial motion picture set worker fluoroscopic image demonstrates an intact percutaneous nephrostomy tube in satisfactory position. ANTEGRADE PYELOGRAM FINDINGS: Dilute contrast was then injected through the existing percutaneous nephrostomy tube. This demonstrated Initial motion picture set worker fluoroscopic spot image demonstrates an intact existing left percutaneous nephrostomy drainage catheter. Half-strength contrast was injected through the existing catheter and demonstrated patency without leak. Opacification of the central pelvis and the left ureter was visualized with a segmental high-grade narrowing at the distal ureter at the ureterovesical junction. PROCEDURE: Appropriate lidocaine 1% local anesthesia was instilled in the subcutaneous soft tissues. A 035 glidewire was inserted through the existing nephrostomy catheter to secure location utilizing intermittent fluoroscopic guidance. The existing nephrostomy catheter was cut and removed over the wire. Subsequently, a 5 [place] Kumpe catheter was advanced over the wire and the wire catheter combination were advanced into the distal ureter attempt was made to advanced wire past the stricture, which was unsuccessful. The Kumpe catheter was removed and a 9 [place] x 30 cm peel-away sheath was advanced over the wire to maintain access. The inner dilator was removed over the wire and the Kumpe catheter was again advanced over the wire through the peel-away sheath. The distal left ureter was then cannulated using catheter and wire manipulation, and the Combi catheter was advanced into the urinary bladder. Contrast injection into the Kumpe catheter confirmed the distal end within the urinary bladder. At this point, decision was made to perform balloon dilatation of the distal ureter for placement of a nephroureteral stent. A stiff glidewire was advanced through the Combi catheter into the urinary bladder. The catheter was removed over the wire, and a 4 mm x 4 mm [place] balloon was advanced over the wire. And balloon dilatation of the distal left ureter was performed under fluoroscopy. An appropriate measurement was taken and a new 8.5 Fr x 24 cm nephroureteral stent/catheter was subsequently inserted over the guidewire. The guidewire and nephrostomy inner stylet were removed. The self-formin (more content not included)... [facility] DIL/NEPH/UREon 07-02-2021 DIL/NEPH/URE Patient Name: LALY NAVAS STUDY: CONVERT NEPHROSTOMY CATH-NEPHROURETERAL CATH,PERC INCLUDE NEPHROSTO/URETEROGRAM W/IMAGE GUIDE; DIL/NEPH/URE; DIL/URETER; 07/02/2021 1:26 pm INDICATION: left nephrostomy tube/hydronephrosis. The patient is a 30-year-old female with history of cervical cancer status post chemotherapy and radiation in 2019 which was complicated by distal left ureteral stricture. Patient is status post left percutaneous nephrostomy tube placement in 2019. Attempt was made by urology to place a double-J stent, however the patient was not able to tolerate the stent due to extensive pain and the stent was removed after 2 months. Capping trial was started on 06/14/2021, which was unsuccessful and patient developed left flank pain in the nephrostomy tube was connected to the urinary bag. The patient presented today for antegrade nephrostogram, possible distal ureteral balloon dilatation and conversion of the nephrostomy to a nephroureteral catheter or ureteral stent. COMPARISON: None. ACCESSION NUMBER(S): [id number]; [id number]; [id number] ORDERING CLINICIAN: POLO PLUMMER TECHNIQUE: INTERVENTIONALIST(S): Attending: Dr. Rohith Howard Resident: Dr. Perla Esqueda CONSENT: The patient/patient's POA/next of kin was informed of the nature of the proposed procedure. The purposes, alternatives, risks, and benefits were explained and discussed. All questions were answered and consent was obtained. RADIATION EXPOSURE: Fluoroscopy time: 12.5 min. Dose: 43.82 mGy. Dose Area Product (DAP): 7604 mGy cm2 SEDATION: Moderate conscious IV sedation services (supervision of administration, induction, and maintenance) were provided by the physician performing the procedure with intravenous fentanyl 300 mcg and versed 4 mg for 60 minutes. The physician was assisted by an independent trained observer, an interventional radiology nurse, in the continuous monitoring of patient level of consciousness and physiologic status. MEDICATION/CONTRAST: Optiray 320, 20 mL Ciprofloxacin 400 mg IV TIME OUT: A time out was performed immediately prior to procedure start with the interventional team, correctly identifying the patient name, date of , MRN, procedure, anatomy (including marking of site and side), patient position, procedure consent form, relevant laboratory and imaging test results, antibiotic administration, safety precautions, and procedure-specific equipment needs. COMPLICATIONS: No immediate adverse events identified. FINDINGS: Maximum sterile barrier technique was implemented. Initial motion picture set worker fluoroscopic image demonstrates an intact percutaneous nephrostomy tube in satisfactory position. ANTEGRADE PYELOGRAM FINDINGS: Dilute contrast was then injected through the existing percutaneous nephrostomy tube. This demonstrated Initial motion picture set worker fluoroscopic spot image demonstrates an intact existing left percutaneous nephrostomy drainage catheter. Half-strength contrast was injected through the existing catheter and demonstrated patency without leak. Opacification of the central pelvis and the left ureter was visualized with a segmental high-grade narrowing at the distal ureter at the ureterovesical junction. PROCEDURE: Appropriate lidocaine 1% local anesthesia was instilled in the subcutaneous soft tissues. A 035 glidewire was inserted through the existing nephrostomy catheter to secure location utilizing intermittent fluoroscopic guidance. The existing nephrostomy catheter was cut and removed over the wire. Subsequently, a 5 [place] Kumpe catheter was advanced over the wire and the wire catheter combination were advanced into the distal ureter attempt was made to advanced wire past the stricture, which was unsuccessful. The Kumpe catheter was removed and a 9 [place] x 30 cm peel-away sheath was advanced over the wire to maintain access. The inner dilator was removed over the wire and the Kumpe catheter was again advanced over the wire through the peel-away sheath. The distal left ureter was then cannulated using catheter and wire manipulation, and the Combi catheter was advanced into the urinary bladder. Contrast injection into the Kumpe catheter confirmed the distal end within the urinary bladder. At this point, decision was made to perform balloon dilatation of the distal ureter for placement of a nephroureteral stent. A stiff glidewire was advanced through the Combi catheter into the urinary bladder. The catheter was removed over the wire, and a 4 mm x 4 mm [place] balloon was advanced over the wire. And balloon dilatation of the distal left ureter was performed under fluoroscopy. An appropriate measurement was taken and a new 8.5 Fr x 24 cm nephroureteral stent/catheter was subsequently inserted over the guidewire. The guidewire and nephrostomy inner stylet were removed. The self-formin (more content not included)... [facility] DIL/URETERon 07-02-2021 DIL/URETER Patient Name: LALY NAVAS STUDY: CONVERT NEPHROSTOMY CATH-NEPHROURETERAL CATH,PERC INCLUDE NEPHROSTO/URETEROGRAM W/IMAGE GUIDE; DIL/NEPH/URE; DIL/URETER; 07/02/2021 1:26 pm INDICATION: left nephrostomy tube/hydronephrosis. The patient is a 30-year-old female with history of cervical cancer status post chemotherapy and radiation in 2019 which was complicated by distal left ureteral stricture. Patient is status post left percutaneous nephrostomy tube placement in 2019. Attempt was made by urology to place a double-J stent, however the patient was not able to tolerate the stent due to extensive pain and the stent was removed after 2 months. Capping trial was started on 06/14/2021, which was unsuccessful and patient developed left flank pain in the nephrostomy tube was connected to the urinary bag. The patient presented today for antegrade nephrostogram, possible distal ureteral balloon dilatation and conversion of the nephrostomy to a nephroureteral catheter or ureteral stent. COMPARISON: None. ACCESSION NUMBER(S): [id number]; [id number]; [id number] ORDERING CLINICIAN: POLO PLUMMER TECHNIQUE: INTERVENTIONALIST(S): Attending: Dr. Rohith Howard Resident: Dr. Perla Esqueda CONSENT: The patient/patient's POA/next of kin was informed of the nature of the proposed procedure. The purposes, alternatives, risks, and benefits were explained and discussed. All questions were answered and consent was obtained. RADIATION EXPOSURE: Fluoroscopy time: 12.5 min. Dose: 43.82 mGy. Dose Area Product (DAP): 7604 mGy cm2 SEDATION: Moderate conscious IV sedation services (supervision of administration, induction, and maintenance) were provided by the physician performing the procedure with intravenous fentanyl 300 mcg and versed 4 mg for 60 minutes. The physician was assisted by an independent trained observer, an interventional radiology nurse, in the continuous monitoring of patient level of consciousness and physiologic status. MEDICATION/CONTRAST: Optiray 320, 20 mL Ciprofloxacin 400 mg IV TIME OUT: A time out was performed immediately prior to procedure start with the interventional team, correctly identifying the patient name, date of , MRN, procedure, anatomy (including marking of site and side), patient position, procedure consent form, relevant laboratory and imaging test results, antibiotic administration, safety precautions, and procedure-specific equipment needs. COMPLICATIONS: No immediate adverse events identified. FINDINGS: Maximum sterile barrier technique was implemented. Initial motion picture set worker fluoroscopic image demonstrates an intact percutaneous nephrostomy tube in satisfactory position. ANTEGRADE PYELOGRAM FINDINGS: Dilute contrast was then injected through the existing percutaneous nephrostomy tube. This demonstrated Initial motion picture set worker fluoroscopic spot image demonstrates an intact existing left percutaneous nephrostomy drainage catheter. Half-strength contrast was injected through the existing catheter and demonstrated patency without leak. Opacification of the central pelvis and the left ureter was visualized with a segmental high-grade narrowing at the distal ureter at the ureterovesical junction. PROCEDURE: Appropriate lidocaine 1% local anesthesia was instilled in the subcutaneous soft tissues. A 035 glidewire was inserted through the existing nephrostomy catheter to secure location utilizing intermittent fluoroscopic guidance. The existing nephrostomy catheter was cut and removed over the wire. Subsequently, a 5 Andorran Kumpe catheter was advanced over the wire and the wire catheter combination were advanced into the distal ureter attempt was made to advanced wire past the stricture, which was unsuccessful. The Kumpe catheter was removed and a 9 Andorran x 30 cm peel-away sheath was advanced over the wire to maintain access. The inner dilator was removed over the wire and the Kumpe catheter was again advanced over the wire through the peel-away sheath. The distal left ureter was then cannulated using catheter and wire manipulation, and the Combi catheter was advanced into the urinary bladder. Contrast injection into the Kumpe catheter confirmed the distal end within the urinary bladder. At this point, decision was made to perform balloon dilatation of the distal ureter for placement of a nephroureteral stent. A stiff glidewire was advanced through the Combi catheter into the urinary bladder. The catheter was removed over the wire, and a 4 mm x 4 mm [place] balloon was advanced over the wire. And balloon dilatation of the distal left ureter was performed under fluoroscopy. An appropriate measurement was taken and a new 8.5 Fr x 24 cm nephroureteral stent/catheter was subsequently inserted over the guidewire. The guidewire and nephrostomy inner stylet were removed. The self-formin (more content not included)... Normal [facility] Office Visit (Urology)on Follow-up visit Orders SocHx: Current smoker Tobacco Use Screening; Status:Complete; Done: 14Jun2021 Perform:Not Applicable;Ordered; For:SocHx: Current smoker; Ordered By:Beth Newsome; Patient Discussion/Summary Pt now MELISSA from her cervical Ca with chronic left NT with no plan for removal. Attempted internal stent last year with severe pain resulting in replacement of NT Plan: trial of clamping NT done today- pt will put back to gravity drainage if fevers or pain- she is comfortable with doing that, here with her sister today. To consult with IR for antegrade nephrostogram and possible dilation if necessary for ureteral stricture, possible internallization with a stent, can consider stent alternatives if necessary or possible repair of stricture if present. pt agrees with plan. follow up after antegrade nephrostogram from IR Chief Complaint left NT History of Present Baoytav69 year old female diagnosed with cervical cancer in April 2020 Stage IIIB invasive squamous cell carcinoma. Treated with cisplatin and whole pelvic radiation. Found to have obstructive hydronephrosis on left side. She has had left nephrostomy tube in with changes every 6 weeks for past year. Has experienced recurrent UTI's throughout the year with recent hospitalization because of it. Was instructed to flush nephrostomy tube daily. Not on antibiotics currently. Here to discuss management of nephrostomy tube. Pt now MELISSA from her cervical Ca with chronic left NT with no plan for removal. Attempted internal stent last year with severe pain resulting in replacement of NT Plan: trial of clamping NT done today- pt will put back to gravity drainage if fevers or pain- she is comfortable with doing that, here with her sister today. To consult with IR for antegrade nephrostogram and possible dilation if necessary for ureteral stricture, possible internallization with a stent, can consider stent alternatives if necessary or possible repair of stricture if present. pt agrees with plan. follow up after antegrade nephrostogram from IR Review of Systems Constitutional: no fever, no chills and not feeling poorly. Eyes: no eyesight problems. ENT: no hearing loss, no nosebleeds and no sore throat. Cardiovascular: no chest pain, no palpitations and no lower extremity edema. Respiratory: no shortness of breath, no wheezing, no cough and no shortness of breath during exertion. Gastrointestinal: no abdominal pain, no constipation, no heartburn, no diarrhea, no vomiting and no blood in stools. Genitourinary: no dysuria, no incontinence, normal micturition, no pelvic pain and no vaginal discharge. Musculoskeletal: no arthralgias and no gait abnormality. Integumentary: no skin lesions, no change in a mole and no skin wound. Neurological: no confusion, no dizziness, no fainting and no difficulty walking. Psychiatric: not suicidal, no anxiety and no depression. All other systems have been reviewed and are negative for complaint. Past Medical History Problems History of asthma (V12.69) (Z87.09) History of Cervical carcinoma (V10.41) (Z85.41) Surgical History Problems History of Biopsy Family History Mother Family history of Cervical adenocarcinoma Family history of malignant neoplasm of breast (V16.3) (Z80.3) Social History Problems Current smoker (305.1) (F17.200) Allergies NoKnown No Known Allergies Recorded By: Beth Newsome; 06/14/2021 11:19:14 AM Current Meds Medication NameInstruction Acyclovir 400 MG Oral Tablet Belladonna Alkaloids-Opium 16.2-30 MG Rectal SuppositoryINSERT 1 SUPPOSITORY RECTALLY EVERY 12 HOURS FOR 7 DAYS NEEDED FOR SPASM busPIRone HCl - 15 MG Oral TabletTAKE 1 TABLET BY MOUTH TWICE DAILY Cefdinir 300 MG Oral Capsule Cephalexin 500 MG Oral Capsule Ciprofloxacin HCl - 250 MG Oral Tablet Ciprofloxacin HCl - 500 MG Oral Tablet DOK 100 MG Oral Capsule Escitalopram Oxalate 10 MG Oral TabletTAKE 1 TABLET BY MOUTH ONCE DAILY Escitalopram Oxalate 20 MG Oral TabletTAKE 1 TABLET BY MOUTH ONCE DAILY Estradiol 0.5 MG Oral Tablet LORazepam 1 MG Oral Tablet Metoclopramide HCl - 10 MG Oral TabletTAKE 1 TABLET BY MOUTH EVERY 6 HOURS FOR NAUSEA AND VOMITING FOR 14 DAYS Minocycline HCl - 100 MG Oral CapsuleTAKE 1 CAPSULE BY MOUTH EVERY 12 HOURS FOR 7 DAYS Morphine Sulfate 15 MG Oral TabletTAKE 1 TABLET BY MOUTH EVERY 6 HOURS NEEDED FOR PAIN FOR 3 DAYS SCALE 7 10 Ondansetron HCl - 4 MG Oral TabletTAKE 1 TABLET BY MOUTH EVERY 4 HOURS NEEDED FOR NAUSEA Oxybutynin Chloride ER 5 MG Oral Tablet Extended Release 24 Hour oxyCODONE HCl - 5 MG Oral TabletTAKE 1 TABLET BY MOUTH EVERY 6 HOURS FOR 7 DAYS NEEDED FOR PAIN oxyCODONE-Acetaminophen 5-325 MG Oral TabletTAKE 1 TABLET BY MOUTH EVERY 4 HOURS NEEDED FOR PAIN Pantoprazole Sodium 40 MG Oral Tablet Delayed ReleaseTAKE 1 TABLET BY MOUTH ONCE DAILY Phenazopyridine HCl - 100 MG Oral TabletTAKE 1 TABLET BY MOUTH THREE TIMES DAILY FOR 3 DAYS Phenazopyridine HCl - 200 MG Oral T (more content not included)... Normal [facility] 10-17-2020 UC ORGANISM 1: NO SIGNIFICANT GROWTH Normal [facility] Comment on above: Performed By: #### M 120.0100 #### [facility] - LABORATORY [address] [place] [address] CA 125on 04-26-2020 CA 125 21 U/mL Normal <39 [facility] Comment on above: Performed By: #### C A125 #### [facility] Routine Lab [address] [place], [place] [address] GC/Chlamydia Amp, Uron 04-06 Chlamydia Amplif, Ur Normal [facility] Reference Lab Comment on above: Result Comment: Nega tive for For screening asymptomatic women, a vaginal swab specimen (APTIMA vaginal swab 224924) is optimal. Urine specimens have reduced sensitivity for Chlamydia trachomatis or Neisseria gonorrhoeae infection in female patients without symptoms. This test was developed and its performance characteristics determined by [facility] ([facility]). It has not been cleared or approved by the FDA. [facility] is regulated under CLIA as qualified to perform high complexity testing. This test is used for clinical purposes. It should not be regarded as investigational or for research. Chlamydia For screening asymptomatic women, a vaginal swab specimen (APTIMA vaginal swab 488526) is optimal. Urine specimens have reduced sensitivity for Chlamydia trachomatis or Neisseria gonorrhoeae infection in female patients without symptoms. This test was developed and its performance characteristics determined by [facility] [place] ([facility]). It has not been cleared or approved by the FDA. [facility] is regulated under CLIA as qualified to perform high complexity testing. This test is used for clinical purposes. It should not be regarded as investigational or for research. trachomatis by For screening asymptomatic women, a vaginal swab specimen (APTIMA vaginal swab 860796) is optimal. Urine specimens have reduced sensitivity for Chlamydia trachomatis or Neisseria gonorrhoeae infection in female patients without symptoms. This test was developed and its performance characteristics determined by [facility] [place] ([facility]). It has not been cleared or approved by the FDA. [facility] is regulated under CLIA as qualified to perform high complexity testing. This test is used for clinical purposes. It should not be regarded as investigational or for research. amplification. For screening asymptomatic women, a vaginal swab specimen (APTIMA vaginal swab 263007) is optimal. Urine specimens have reduced sensitivity for Chlamydia trachomatis or Neisseria gonorrhoeae infection in female patients without symptoms. This test was developed and its performance characteristics determined by [facility] [place] ([facility]). It has not been cleared or approved by the FDA. [facility] is regulated under CLIA as qualified to perform high complexity testing. This test is used for clinical purposes. It should not be regarded as investigational or for research. Performed By: #### U GCCT #### [facility] Routine Lab [address] [place], [place] [address] GC Amplification, Ur NGNEG Normal [facility] Comment on above: Performed By: #### U GCCT #### [facility] Routine Lab [address] [place], [place] [address] GC/Chlamydia Amp, Uron 04-03 Chlamydia Amplif, Ur Normal [facility] Comment on above: Result Comment: Nega tive for For screening asymptomatic women, a vaginal swab specimen (APTIMA vaginal swab 444465) is optimal. Urine specimens have reduced sensitivity for Chlamydia trachomatis or Neisseria gonorrhoeae infection in female patients without symptoms. This test was developed and its performance characteristics determined by [facility] [place] [facility] ([facility]). It has not been cleared or approved by the FDA. [facility] is regulated under CLIA as qualified to perform high complexity testing. This test is used for clinical purposes. It should not be regarded as investigational or for research. Chlamydia For screening asymptomatic women, a vaginal swab specimen (APTIMA vaginal swab 362365) is optimal. Urine specimens have reduced sensitivity for Chlamydia trachomatis or Neisseria gonorrhoeae infection in female patients without symptoms. This test was developed and its performance characteristics determined by [facility] ([facility]). It has not been cleared or approved by the FDA. [facility] is regulated under CLIA as qualified to perform high complexity testing. This test is used for clinical purposes. It should not be regarded as investigational or for research. trachomatis by For screening asymptomatic women, a vaginal swab specimen (APTIMA vaginal swab 701962) is optimal. Urine specimens have reduced sensitivity for Chlamydia trachomatis or Neisseria gonorrhoeae infection in female patients without symptoms. This test was developed and its performance characteristics determined by [facility] ([facility]). It has not been cleared or approved by the FDA. [facility] is regulated under CLIA as qualified to perform high complexity testing. This test is used for clinical purposes. It should not be regarded as investigational or for research. amplification. For screening asymptomatic women, a vaginal swab specimen (APTIMA vaginal swab 796203) is optimal. Urine specimens have reduced sensitivity for Chlamydia trachomatis or Neisseria gonorrhoeae infection in female patients without symptoms. This test was developed and its performance characteristics determined by [facility] [place] ([facility]). It has not been cleared or approved by the FDA. [facility] is regulated under CLIA as qualified to perform high complexity testing. This test is used for clinical purposes. It should not be regarded as investigational or for research. Performed By: #### U GCCT #### [facility] Routine Lab [address] [place] [id number] GC Amplification, Ur NGNEG [facility] Comment on above: Performed By: #### U GCCT #### [facility] Routine Lab [address] [place], [place] [address] Vital Signs Date Time Vital Sign Value Performing Clinician Facility 03-15-2025 19:03-0400 Diastolic Blood Pressure Non-Invasive 91 mm[Hg] GUCCI ALEXANDRE MD [address] [place] [address] 03-15-2025 19:03-0400 Heart rate 77 /min GUCCI ALEXANDRE MD [address] [place] [address] 03-15-2025 19:03-0400 Respiratory rate 18 /min GUCCI ALEXANDRE MD [address] [place] [address] 03-15-2025 19:03-0400 Systolic Blood Pressure Non-Invasive 158 mm[Hg] GUCCI ALEXANDRE MD [address] [place] [address] 03-15-2025 16:48-0400 Diastolic Blood Pressure Non-Invasive 87 mm[Hg] GUCCI ALEXANDRE MD [address] [place] [address] 03-15-2025 16:48-0400 Heart rate 67 /min GUCCI ALEXANDRE MD [facility] 03-15-2025 16:48-0400 Respiratory rate 18 /min GUCCI ALEXANDRE MD [address] [place] [address] 03-15-2025 16:48-0400 Systolic Blood Pressure Non-Invasive 144 mm[Hg] GUCCI ALEXANDRE MD [facility] 03-15-2025 14:52-0400 Body temperature 98.42 [degF] GUCCI ALEXANDRE MD [address] [place] [address] 03-15-2025 14:52-0400 Body weight 53.1 kg GUCCI ALEXANDRE MD [address] [place] [address] 03-15-2025 14:52-0400 Diastolic Blood Pressure Non-Invasive 86 mm[Hg] GUCCI ALEXANDRE MD [facility] 03-15-2025 14:52-0400 Heart rate 69 /min GUCCI ALEXANDRE MD [facility] 03-15-2025 14:52-0400 Respiratory rate 18 /min GUCCI ALEXANDRE MD [facility] 03-15-2025 14:52-0400 Systolic Blood Pressure Non-Invasive 130 mm[Hg] GUCCI ALEXANDRE MD [facility] 03-09-2025 16:36-0400 Diastolic Blood Pressure Non-Invasive 92 mm[Hg] DELMAR MICHAEL DO [facility] 03-09-2025 16:36-0400 Heart rate 57 /min DELMAR MICHAEL DO [facility] 03-09-2025 16:36-0400 Respiratory rate 18 /min DELMAR MICHAEL DO [facility] 03-09-2025 16:36-0400 Systolic Blood Pressure Non-Invasive 142 mm[Hg] DELMAR MICHAEL DO [facility] 03-09-2025 14:20-0400 Diastolic Blood Pressure Non-Invasive 86 mm[Hg] DELAMR MICHAEL DO [facility] 03-09-2025 14:20-0400 Heart rate 80 /min DELMAR MICHAEL DO [facility] 03-09-2025 14:20-0400 Respiratory rate 18 /min DELMAR MICHAEL DO [facility] 03-09-2025 14:20-0400 Systolic Blood Pressure Non-Invasive 130 mm[Hg] DELMAR MICHAEL DO [facility] 03-09-2025 12:17-0400 Body temperature 96.98 [degF] DELMAR MICHAEL DO [facility] 03-09-2025 12:17-0400 Body weight 53 kg DELMAR MICHAEL DO [facility] 03-09-2025 12:17-0400 Diastolic Blood Pressure Non-Invasive 95 mm[Hg] DELMAR MICHAEL DO [facility] 03-09-2025 12:17-0400 Heart rate 81 /min DELMAR MICHAEL DO [facility] 03-09-2025 12:17-0400 Respiratory rate 18 /min DELMAR MICAHEL DO [facility] 03-09-2025 12:17-0400 Systolic Blood Pressure Non-Invasive 134 mm[Hg] DELMAR MICHAEL DO [facility] 02-16-2025 10:00-0400 Body temperature 96.98 [degF] PINA PANTOJA L[employer]IGATION ATTORNEY ASSOCIATE-[employer]OVER [facility] 02-16-2025 10:00-0400 Heart rate 63 /min PINA PANTOJA LITIGATION ATTORNEY ASSOCIATE-HAZARDOUS [employer] [facility] 02-16-2025 10:00-0400 Respiratory rate 18 /min PINA PANTOJA LITIGATION ATTORNEY ASSOCIATE-HAZARDOUS [employer] [facility] 02-16-2025 10:00-0400 Systolic Blood Pressure Non-Invasive 122 mm[Hg] PINA PANTOJA LITIGATION ATTORNEY ASSOCIATE-HAZARDOUS [employer]OVER [facility] 02-16-2025 09:40-0400 Heart rate 60 /min PINA PANTOJA LITIGATION ATTORNEY ASSOCIATE-HAZARDOUS [employer] REMOVER [facility] 02-16-2025 09:40-0400 Body temperature 97.52 [degF] PINA PANTOJA LITIGATION ATTORNEY ASSOCIATE-HAZARDOUS [employer] REMOVER [facility] 02-16-2025 09:40-0400 Diastolic Blood Pressure Non-Invasive 79 mm[Hg] PINA PANTOJA LITIGATION ATTORNEY ASSOCIATE-HAZARDOUS [employer]OVER [facility] 02-16-2025 09:40-0400 Mean blood pressure 88 mm[Hg] PINA PANTOJA LITIGATION ATTORNEY ASSOCIATE-HAZARDOUS [employer] REMOVER [facility] 02-16-2025 09:40-0400 Respiratory rate 16 /min PINA PANTOJA LITIGATION ATTORNEY ASSOCIATE-HAZARDOUS [employer]OVER [facility] 02-16-2025 09:40-0400 Systolic Blood Pressure Non-Invasive 104 mm[Hg] PINA PANTOJA LITIGATION ATTORNEY ASSOCIATE-HAZARDOUS W[employer] REMOVER [facility] 02-16-2025 09:25-0400 Diastolic Blood Pressure Non-Invasive 71 mm[Hg] PINA PANTOJA LITIGATION ATTORNEY ASSOCIATE-HAZARDOUS [employer]OVER [facility] 02-16-2025 09:25-0400 Mean blood pressure 83 mm[Hg] PINA PANTOJA LITIGATION ATTORNEY ASSOCIATE-HAZARDOUS [employer]OVER [facility] 02-16-2025 09:25-0400 Systolic Blood Pressure Non-Invasive 107 mm[Hg] PINA PANTOJA LITIGATION ATTORNEY ASSOCIATE-HAZARDOUS [employer] REMOVER [facility] 02-16-2025 09:25-0400 Heart rate 67 /min PINA PANTOJA LITIGATION ATTORNEY ASSOCIATE-HAZARDOUS [employer]OVER [facility] 02-16-2025 09:25-0400 Respiratory rate 16 /min PINA PANTOJA LITIGATION ATTORNEY ASSOCIATE-HAZARDOUS [employer]OVER [facility] 02-16-2025 09:10-0400 Mean blood pressure 101 mm[Hg] PINA PANTOJA LITIGATION ATTORNEY ASSOCIATE-HAZARDOUS [employer] REMOVER [facility] 02-16-2025 09:10-0400 Blood Pressure Cuff Size PINA PANTOJA LITIGATION ATTORNEY ASSOCIATE-HAZARDOUS [employer]OVER [facility] 02-16-2025 09:10-0400 Blood Pressure Location PINA PANTOJA LITIGATION ATTORNEY ASSOCIATE-HA[employer]ARDOUS [employer] [facility] 02-16-2025 09:10-0400 Blood Pressure Method PINA PANTOJA LITIGATION ATTORNEY ASSOCIATE-HAZARDOUS [employer]OVER [facility] 02-16-2025 09:10-0400 Body temperature 97.52 [degF] PINAALICE PANTOJA LITIGATION ATTORNEY ASSOCIATE-HAZARDOUS [employer]OVER [facility] 02-16-2025 09:00-0400 Respiratory Rate - Anes 4 br/min PINAALICE PANTOJA LITIGATION ATTORNEY ASSOCIATE-HAZARDOUS [employer]OVER [facility] 02-16-2025 08:55-0400 Respiratory Rate - Anes 19 br/min PINAALICE PANTOJA LITIGATION ATTORNEY ASSOCIATE-HAZARDOUS [employer]OVER [facility] 02-16-2025 08:50-0400 Respiratory Rate - Anes 10 br/min PINA PANTOJA LITIGATION ATTORNEY ASSOCIATE-HAZARDOUS [employer]OVER [facility] 02-16-2025 06:37-0400 Body height 167.6 cm PINA PANTOJA LITIGATION ATTORNEY ASSOCIATE-HAZARDOUS [employer]OVER [facility] 02-16-2025 06:37-0400 Body weight 110.7 kg PINA PANTOJA LITIGATION ATTORNEY ASSOCIATE-HAZARDOUS W[employer] REMOVER [facility] 02-16-2025 06:37-0400 Heart rate 70 /min PINA AVILA LITIGATION ATTORNEY ASSOCIATE-HAZARDOUS W[employer] REMOVER [facility] 12-22-2024 12:10-0500 Body temperature 96.98 [degF] NASRIN ISABEL MD [facility] 12-22-2024 12:10-0500 Diastolic Blood Pressure Non-Invasive 66 mm[Hg] NASRIN ISABEL MD [facility] 12-22-2024 12:10-0500 Heart rate 54 /min NASRIN ISABEL MD [facility] 12-22-2024 12:10-0500 Respiratory rate 16 /min NASRIN ISABEL MD [facility] 12-22-2024 12:10-0500 Systolic Blood Pressure Non-Invasive 106 mm[Hg] NASRIN ISABEL MD [facility] 12-22-2024 11:54-0500 Body temperature 97.34 [degF] NASRIN ISABEL MD [facility] 12-22-2024 11:54-0500 Diastolic Blood Pressure Non-Invasive 77 mm[Hg] NASRIN ISABEL MD [facility] 12-22-2024 11:54-0500 Heart rate 53 /min NASRIN ISABEL MD [facility] 12-22-2024 11:54-0500 Mean blood pressure 89 mm[Hg] NASRIN ISABEL MD [facility] 12-22-2024 11:54-0500 Respiratory rate 18 /min NASRIN ISBAEL MD [facility] 12-22-2024 11:54-0500 Systolic Blood Pressure Non-Invasive 117 mm[Hg] NASRIN ISABEL MD [facility] 12-22-2024 11:35-0500 Diastolic Blood Pressure Non-Invasive 80 mm[Hg] NASRIN ISABEL MD [facility] 12-22-2024 11:35-0500 Heart rate 51 /min NASRIN ISABEL MD [facility] 12-22-2024 11:35-0500 Mean blood pressure 89 mm[Hg] NASRIN ISABEL MD [facility] 12-22-2024 11:35-0500 Respiratory rate 18 /min NASRIN ISABEL MD [facility] 12-22-2024 11:35-0500 Systolic Blood Pressure Non-Invasive 111 mm[Hg] NASRIN ISABEL MD [facility] 12-22-2024 11:20-0500 Body temperature 97.16 [degF] NASRIN ISABEL MD [facility] 12-22-2024 11:20-0500 Heart rate 76 /min NASRIN ISABEL MD [facility] 12-22-2024 11:20-0500 Mean blood pressure 108 mm[Hg] NASRIN ISABEL MD [facility] 12-22-2024 11:15-0500 Respiratory Rate - Anes 0 br/min NASRIN ISABEL MD [facility] 12-22-2024 11:10-0500 Respiratory Rate - Anes 6 br/min NASRIN ISABEL MD [facility] 12-22-2024 11:05-0500 Respiratory Rate - Anes 13 br/min NASRIN ISABEL MD [facility] 12-22-2024 10:45-0500 Body temperature 96.8 [degF] NASRIN ISABEL MD [facility] 12-22-2024 10:30-0500 Body temperature 96.8 [degF] NASRIN ISABEL MD [facility] 12-22-2024 10:15-0500 Body temperature 96.8 [degF] NASRIN ISABEL MD [facility] 12-22-2024 08:08-0500 Body height 167.6 cm NASRIN ISABEL MD [facility] 12-22-2024 08:08-0500 Body weight 53.6 kg NASRIN ISABEL MD [facility] 12-22-2024 08:08-0500 Heart rate 57 /min NASRIN ISABEL MD [facility] 08-11-2024 12:08-0400 Body temperature 96.62 [degF] NASRIN ISABEL MD [facility] 08-11-2024 12:08-0400 Diastolic Blood Pressure Non-Invasive 94 mm[Hg] NASRIN ISABEL MD [facility] 08-11-2024 12:08-0400 Heart rate 80 /min NASRIN ISABEL MD [facility] 08-11-2024 12:08-0400 Heart rate 64 /min NASRIN ISABEL MD [facility] 10-09-2024 12:08-0400 Respiratory rate 16 /min NASIRN ISABEL MD [facility] 08-11-2024 12:08-0400 Systolic Blood Pressure Non-Invasive 137 mm[Hg] NASRIN ISABEL MD [facility] 08-11-2024 11:44-0400 Heart rate 59 /min NASRIN ISABEL MD [facility] 08-11-2024 11:35-0400 Body temperature 96.8 [degF] NASRIN ISABEL MD [facility] 08-11-2024 11:35-0400 Diastolic Blood Pressure Non-Invasive 97 mm[Hg] NASRIN ISABEL MD [facility] 08-11-2024 11:35-0400 Heart rate 61 /min NASRIN ISABEL MD [facility] 08-11-2024 11:35-0400 Mean blood pressure 108 mm[Hg] NASRIN ISABEL MD [facility] 08-11-2024 11:35-0400 Respiratory rate 16 /min NASRIN ISABEL MD [facility] 08-11-2024 11:35-0400 Systolic Blood Pressure Non-Invasive 127 mm[Hg] NASRIN ISABEL MD [facility] 08-11-2024 11:20-0400 Diastolic Blood Pressure Non-Invasive 99 mm[Hg] NASRIN ISABEL MD [facility] 08-11-2024 11:20-0400 Mean blood pressure 113 mm[Hg] NASRIN ISABEL MD [facility] 08-11-2024 11:20-0400 Respiratory rate 16 /min NASRIN ISABEL MD [facility] 08-11-2024 11:20-0400 Systolic Blood Pressure Non-Invasive 138 mm[Hg] NASRIN ISABEL MD [facility] 08-11-2024 10:50-0400 Body temperature 97.16 [degF] NASRIN ISABEL MD [facility] 08-11-2024 10:40-0400 Respiratory Rate - Anes 0 br/min NASRIN ISABEL MD [facility] 08-11-2024 10:35-0400 Body temperature 96.82 [degF] NASRIN ISABEL MD [facility] 08-11-2024 10:35-0400 Respiratory Rate - Anes 9 br/min NASRIN ISABEL MD [facility] 08-11-2024 10:30-0400 Body temperature 96.73 [degF] NASRIN ISABEL MD [facility] 08-11-2024 10:30-0400 Respiratory Rate - Anes 9 br/min NASRIN ISABEL MD [facility] 08-11-2024 10:25-0400 Body temperature 96.8 [degF] NASRIN ISABEL MD [facility] 08-11-2024 08:31-0400 Body height 163.8 cm NASRIN ISABEL MD [facility] 08-11-2024 08:31-0400 Body weight 59.5 kg NASRIN ISABEL MD [facility] 08-11-2024 08:31-0400 Heart rate 72 /min NASRIN ISABEL MD [facility] 08-06-2024 07:07-0400 Blood Pressure Cuff Size NASRIN ISABEL MD [facility] 08-06-2024 07:07-0400 Blood Pressure Location NASRIN ISABEL MD [facility] 08-06-2024 07:07-0400 Blood Pressure Method NASRIN ISABEL MD [facility] 08-06-2024 07:07-0400 Body height 165 cm NASRIN ISABEL MD [facility] 08-06-2024 07:07-0400 Body temperature 98.06 [degF] NASRIN ISABEL MD [facility] 08-06-2024 07:07-0400 Body weight 59.8 kg NASRIN ISABEL MD [facility] 08-06-2024 07:07-0400 Body weight 21.97 kg/m2 NASRIN ISABEL MD [facility] 08-06-2024 07:07-0400 Diastolic Blood Pressure Non-Invasive 75 mm[Hg] NASRIN ISABEL MD [facility] 08-06-2024 07:07-0400 Heart rate 64 /min NASRIN ISABEL MD [facility] 08-06-2024 07:07-0400 Systolic Blood Pressure Non-Invasive 151 mm[Hg] NASRIN ISABEL MD [facility] 06-09-2024 10:50-0400 Body temperature 96.98 [degF] NASRIN ISABEL MD [facility] 06-09-2024 10:50-0400 Diastolic Blood Pressure Non-Invasive 86 mm[Hg] NASRIN ISABEL MD [facility] 06-09-2024 10:50-0400 Heart rate 58 /min NASRIN ISABEL MD [facility] 06-09-2024 10:50-0400 Respiratory rate 18 /min NASRIN ISABEL MD [facility] 06-09-2024 10:50-0400 Systolic Blood Pressure Non-Invasive 122 mm[Hg] NASRIN ISABEL MD [facility] 06-09-2024 10:40-0400 Body temperature 96.8 [degF] NASRIN ISABEL MD [facility] 06-09-2024 10:40-0400 Diastolic Blood Pressure Non-Invasive 98 mm[Hg] NASRIN ISABEL MD [facility] 06-09-2024 10:40-0400 Heart rate 59 /min NASRIN ISABEL MD [facility] 06-09-2024 10:40-0400 Mean blood pressure 108 mm[Hg] NASRIN ISABEL MD [facility] 06-09-2024 10:40-0400 Respiratory rate 16 /min NASRIN ISABEL MD [facility] 06-09-2024 10:40-0400 Systolic Blood Pressure Non-Invasive 121 mm[Hg] NASRIN ISABEL MD [facility] 06-09-2024 10:25-0400 Diastolic Blood Pressure Non-Invasive 94 mm[Hg] NASRIN ISABEL MD [facility] 06-09-2024 10:25-0400 Heart rate 54 /min NASRIN ISABEL MD [facility] 06-09-2024 10:25-0400 Mean blood pressure 108 mm[Hg] NASRIN ISABEL MD [facility] 06-09-2024 10:25-0400 Respiratory rate 16 /min NASRIN ISABEL MD [facility] 06-09-2024 10:25-0400 Systolic Blood Pressure Non-Invasive 142 mm[Hg] NASRIN ISABEL MD [facility] 06-09-2024 10:10-0400 Heart rate 57 /min NASRIN ISABEL MD [facility] 06-09-2024 10:10-0400 Mean blood pressure 111 mm[Hg] NASRIN ISABEL MD [facility] 06-09-2024 09:40-0400 Body temperature 97.16 [degF] NASRIN ISABEL MD [facility] 06-09-2024 09:35-0400 Respiratory Rate - Anes 13 br/min NASRIN ISABEL MD [facility] 06-09-2024 09:30-0400 Respiratory Rate - Anes 5 br/min NASRIN ISABEL MD [facility] 06-09-2024 09:25-0400 Respiratory Rate - Anes 6 br/min NASRIN ISABEL MD [facility] 06-09-2024 09:20-0400 Body temperature 96.73 [degF] NASRIN ISABEL MD [facility] 06-09-2024 09:15-0400 Body temperature 96.69 [degF] NASRIN ISABEL MD [facility] 06-09-2024 09:10-0400 Body temperature 96.55 [degF] NASRIN ISABEL MD [facility] 06-09-2024 06:48-0400 Body weight 21.18 kg/m2 NASRIN ISABEL MD [facility] 06-09-2024 06:46-0400 Body height 167.6 cm NASRIN ISABEL MD [facility] 06-09-2024 06:46-0400 Body weight 59.5 kg NASRIN ISABEL MD [facility] 06-09-2024 06:46-0400 Heart rate 70 /min NASRIN ISABEL MD [facility] 04-14-2024 13:47-0400 Body temperature 95.72 [degF] OLE PACE MD [facility] 04-14-2024 13:47-0400 Diastolic Blood Pressure Non-Invasive 88 mm[Hg] OLE PACE MD [facility] 04-14-2024 13:47-0400 Heart rate 54 /min OLE PACE MD [facility] 04-14-2024 13:47-0400 Reason For Taking VItal Signs OLE PACE MD [facility] 04-14-2024 13:47-0400 Respiratory rate 16 /min OLE PACE MD [facility] 04-14-2024 13:47-0400 Systolic Blood Pressure Non-Invasive 123 mm[Hg] OLE PACE MD [facility] 04-14-2024 13:40-0400 Body temperature 96.8 [degF] OLE PACE MD [facility] 04-14-2024 13:40-0400 Diastolic Blood Pressure Non-Invasive 84 mm[Hg] OLE PACE MD [facility] 04-14-2024 13:40-0400 Heart rate 53 /min OLE PACE MD [facility] 04-14-2024 13:40-0400 Mean blood pressure 92 mm[Hg] OLE PACE MD [facility] 04-14-2024 13:40-0400 Respiratory rate 16 /min OLE PACE MD [facility] 04-14-2024 13:40-0400 Systolic Blood Pressure Non-Invasive 113 mm[Hg] OLE PACE MD [facility] 04-14-2024 13:25-0400 Body temperature 97.34 [degF] OLE PACE MD [facility] 04-14-2024 13:25-0400 Diastolic Blood Pressure Non-Invasive 85 mm[Hg] OLE PACE MD [facility] 04-14-2024 13:25-0400 Heart rate 47 /min OLE PACE MD [facility] 04-14-2024 13:25-0400 Mean blood pressure 95 mm[Hg] OLE PACE MD [facility] 04-14-2024 13:25-0400 Respiratory rate 16 /min OLE PACE MD [facility] 04-14-2024 13:25-0400 Systolic Blood Pressure Non-Invasive 123 mm[Hg] OLE PACE MD [facility] 04-14-2024 13:15-0400 Heart rate 61 /min OLE PACE MD [facility] 04-14-2024 13:15-0400 Respiratory Rate - Anes 11 br/min OLE PACE MD [facility] 04-14-2024 13:10-0400 Respiratory Rate - Anes 14 br/min OLE PACE MD [facility] 04-14-2024 13:05-0400 Respiratory Rate - Anes 0 br/min OLE PACE MD [facility] 04-14-2024 11:36-0400 Body height 167.6 cm OLE PACE MD [facility] 04-14-2024 11:36-0400 Body weight 61.5 kg OLE PACE MD [facility] 04-14-2024 11:36-0400 Heart rate 79 /min OLE PACE MD [facility] 03-03-2024 15:27-0400 Body temperature 97.52 [degF] OLE PACE MD [facility] 03-03-2024 15:27-0400 Diastolic blood pressure 95 mm[Hg] OLE PACE MD [facility] 03-03-2024 15:27-0400 Heart rate 58 /min OLE PACE MD [facility] 03-03-2024 15:27-0400 Respiratory rate 16 /min OLE PACE MD [facility] 03-03-2024 15:27-0400 Systolic blood pressure 140 mm[Hg] OLE PACE MD [address] [place] [address] 03-03-2024 13:53-0400 Body temperature 96.98 [degF] OLE APCE MD [address] 03-03-2024 13:53-0400 Diastolic Blood Pressure Non-Invasive 81 mm[Hg] OLE PACE MD [address] [place] [id number] 03-03-2024 13:53-0400 Heart rate 62 /min OLE PACE MD [address] 03-03-2024 13:53-0400 Reason For Taking VItal Signs OLE PACE MD [address] [place] [address] 03-03-2024 13:53-0400 Respiratory rate 16 /min OLE PACE MD [address] [place] [address] 03-03-2024 13:53-0400 Systolic Blood Pressure Non-Invasive 125 mm[Hg] OLE PACE MD [address] [place] [address] 03-03-2024 13:45-0400 Heart rate 69 /min OLE PACE MD [address] [place] [address] 03-03-2024 13:45-0400 Respiratory Rate - Anes 17 br/min OLE PACE MD [address] [place] [address] 03-03-2024 13:44-0400 Diastolic Blood Pressure Non-Invasive 95 mm[Hg] OLE PACE MD [address] [place] [address] 03-03-2024 13:44-0400 Systolic Blood Pressure Non-Invasive 139 mm[Hg] OLE PACE MD [address] [place] [address] 03-03-2024 13:40-0400 Diastolic Blood Pressure Non-Invasive 93 mm[Hg] OLE PACE MD [address] [place] [address] 03-03-2024 13:40-0400 Heart rate 86 /min OLE PACE MD [address] [place] [address] 03-03-2024 13:40-0400 Respiratory Rate - Anes 14 br/min OLE PACE MD [address] [place] [address] 03-03-2024 13:40-0400 Systolic Blood Pressure Non-Invasive 122 mm[Hg] OLE PACE MD [address] [place] [address] 03-03-2024 13:35-0400 Heart rate 78 /min OLE PACE MD [address] [place] [id number] 03-03-2024 13:35-0400 Respiratory Rate - Anes 20 br/min OLE PACE MD [address] [place] [address] 03-03-2024 11:18-0400 Body height 167.6 cm OLE PACE MD [address] [place] [address] 03-03-2024 11:18-0400 Body temperature 98.96 [degF] OLE PACE MD [address] [place] [address] 03-03-2024 11:18-0400 Body weight 59.5 kg OLE PACE MD [address] [place] [address] 03-03-2024 11:18-0400 Heart rate 64 /min OLE PACE MD [address] [place] [address] 03-03-2024 11:18-0400 Respiratory rate 16 /min OLE PACE MD [address] [place] [address] 01-21-2024 15:05-0400 Body temperature 97.34 [degF] OLE PACE MD [address] [place] [address] 01-21-2024 15:05-0400 Diastolic blood pressure 81 mm[Hg] OLE PACE MD [address] [place] [address] 01-21-2024 15:05-0400 Heart rate 84 /min OLE PACE MD [address] [place] [address] 01-21-2024 15:05-0400 Respiratory rate 16 /min OLE PACE MD [facility] 01-21-2024 15:05-0400 Systolic blood pressure 118 mm[Hg] OLE PACE MD [facility] 01-21-2024 13:53-0400 Body temperature 97.7 [degF] OLE PACE MD [facility] 01-21-2024 13:53-0400 Diastolic Blood Pressure Non-Invasive 85 mm[Hg] OLE PACE MD [facility] 01-21-2024 13:53-0400 Heart rate 71 /min OLE PACE MD [facility] 01-21-2024 13:53-0400 Respiratory rate 16 /min OLE PACE MD [facility] 01-21-2024 13:53-0400 Systolic Blood Pressure Non-Invasive 122 mm[Hg] OLE PACE MD [facility] 01-21-2024 13:38-0400 Diastolic Blood Pressure Non-Invasive 89 mm[Hg] OLE PACE MD [facility] 01-21-2024 13:38-0400 Systolic Blood Pressure Non-Invasive 122 mm[Hg] OLE PACE MD [facility] 01-21-2024 13:35-0400 Diastolic Blood Pressure Non-Invasive 80 mm[Hg] OLE PACE MD [facility] 01-21-2024 13:35-0400 Heart rate 89 /min OLE PACE MD [facility] 01-21-2024 13:35-0400 Respiratory Rate - Anes 13 br/min OLE PACE MD [facility] 01-21-2024 13:35-0400 Systolic Blood Pressure Non-Invasive 104 mm[Hg] OLE PACE MD [facility] 01-21-2024 13:30-0400 Heart rate 82 /min OLE PACE MD [facility] 01-21-2024 13:30-0400 Respiratory Rate - Anes 11 br/min OLE PACE MD [facility] 01-21-2024 13:25-0400 Heart rate 82 /min OLE PACE MD [facility] 01-21-2024 13:25-0400 Respiratory Rate - Anes 12 br/min OLE PACE MD [facility] 01-21-2024 11:50-0400 Body height 167.6 cm OLE PACE MD [facility] 01-21-2024 11:50-0400 Body temperature 98.42 [degF] OLE PACE MD [facility] 01-21-2024 11:50-0400 Body weight 58.2 kg OLE PACE MD [facility] 01-21-2024 11:50-0400 Heart rate 87 /min OLE PACE MD [facility] 01-21-2024 11:50-0400 Respiratory rate 16 /min OLE PACE MD [facility] 12-03-2023 13:39-0500 Body temperature 96.8 [degF] 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 [facility] 12-03-2023 13:39-0500 Diastolic blood pressure 95 mm[Hg] 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 [facility] 12-03-2023 13:39-0500 Heart rate 51 /min 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 [facility] 12-03-2023 13:39-0500 Respiratory rate 16 /min 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 [facility] 12-03-2023 13:39-0500 Systolic blood pressure 141 mm[Hg] 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 [facility] 12-03-2023 12:10-0500 Body temperature 97.34 [degF] 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 [facility] 12-03-2023 12:10-0500 Diastolic Blood Pressure Non-Invasive 88 mm[Hg] 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 [facility] 12-03-2023 12:10-0500 Heart rate 69 /min 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 [facility] 12-03-2023 12:10-0500 Respiratory rate 16 /min 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 [facility] 12-03-2023 12:10-0500 Systolic Blood Pressure Non-Invasive 134 mm[Hg] BRITTNI POPEDEZ L[employer]ATION ATTORNEY ASSOCIATE-[employer] [facility] 12-03-2023 11:50-0500 Respiratory Rate - Anes 11 br/min 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 [facility] 12-03-2023 11:48-0500 Diastolic Blood Pressure Non-Invasive 83 mm[Hg] 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 [facility] 12-03-2023 11:48-0500 Systolic Blood Pressure Non-Invasive 120 mm[Hg] BRITTNI POPEDEZ L[employer]IGATION ATTORNEY ASSOCIATE-[employer] [facility] 12-03-2023 11:45-0500 Body temperature 96.8 [degF] 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 [facility] 12-03-2023 11:45-0500 Diastolic Blood Pressure Non-Invasive 80 mm[Hg] 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 [facility] 12-03-2023 11:45-0500 Heart rate 71 /min BRITTNI POPEDEZ L[employer]ATION ATTORNEY ASSOCIATE-[employer] [facility] 12-03-2023 11:45-0500 Respiratory Rate - Anes 17 br/min 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 [facility] 12-03-2023 11:45-0500 Systolic Blood Pressure Non-Invasive 117 mm[Hg] BRITTNI POPEDEZ L[employer]ATION ATTORNEY ASSOCIATE-[employer] [facility] 12-03-2023 11:40-0500 Body temperature 96.8 [degF] BRITTNI POPEDEZ L[employer]ATION ATTORNEY ASSOCIATE-[employer] [facility] 12-03-2023 11:40-0500 Heart rate 76 /min 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 [facility] 12-03-2023 11:40-0500 Respiratory Rate - Anes 20 br/min BRITTNI POPEDEZ L[employer]ATION ATTORNEY ASSOCIATE-[employer] [facility] 12-03-2023 11:35-0500 Body temperature 96.8 [degF] BRITTNI POPEDEZ L[employer]IGATION ATTORNEY ASSOCIATE-[employer] [facility] 12-03-2023 11:35-0500 Heart rate 76 /min BRITTNI POPEDEZ LITIGATION ATTORNEY ASSOCIATE-[employer]OUS [employer] [facility] 12-03-2023 09:41-0500 Body height 167.6 cm BRITTNI POPEDEZ LITIGATION ATTORNEY ASSOCIATE-[employer]OUS [employer] [facility] 12-03-2023 09:41-0500 Body temperature 97.52 [degF] BRITTNI POPEDEZ L[employer]IGATION ATTORNEY ASSOCIATE-[employer] [facility] 12-03-2023 09:41-0500 Body weight 58.6 kg BRITTNI POPEDEZ L[employer]ATION ATTORNEY ASSOCIATE-[employer] [facility] 12-03-2023 09:41-0500 Heart rate 78 /min 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 [facility] 12-03-2023 09:41-0500 Respiratory rate 18 /min BRITTNI POPEDEZ L[employer]IGATION ATTORNEY ASSOCIATE-[employer] [facility] 10-22-2023 16:30-0500 Body temperature 96.98 [degF] 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 [facility] 10-22-2023 16:30-0500 Diastolic Blood Pressure Non-Invasive 81 mm[Hg] 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 [facility] 10-22-2023 16:30-0500 Heart rate 72 /min 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 [facility] 10-22-2023 16:30-0500 Respiratory rate 16 /min 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 [facility] 10-22-2023 16:30-0500 Systolic Blood Pressure Non-Invasive 115 mm[Hg] 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 [facility] 10-22-2023 16:15-0500 Body temperature 97.34 [degF] BRTITNI LU LITIGATION ATTORNEY ASSOCIATE-[employer]OUS [employer] [facility] 10-22-2023 16:15-0500 Diastolic Blood Pressure Non-Invasive 76 mm[Hg] 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 [facility] 10-22-2023 16:15-0500 Respiratory rate 16 /min 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 [facility] 10-22-2023 16:15-0500 Systolic Blood Pressure Non-Invasive 107 mm[Hg] 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 [facility] 10-22-2023 16:10-0500 Diastolic Blood Pressure Non-Invasive 76 mm[Hg] 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 [facility] 10-22-2023 16:10-0500 Heart rate 52 /min BRITTNI PRATHERZ LITIGATION ATTORNEY ASSOCIATE-HA[employer]OUS [employer] [facility] 10-22-2023 16:10-0500 Mean blood pressure 87 mm[Hg] 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 [facility] 10-22-2023 16:10-0500 Systolic Blood Pressure Non-Invasive 107 mm[Hg] BRITTNI POPEDEZ LITIGATION ATTORNEY ASSOCIATE-HA[employer]OUS [employer] [facility] 10-22-2023 15:51-0500 Heart rate 49 /min 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 [facility] 10-22-2023 15:51-0500 Respiratory rate 16 /min 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 [facility] 10-22-2023 15:35-0500 Heart rate 50 /min 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 [facility] 10-22-2023 15:18-0500 Mean blood pressure 111 mm[Hg] BRITTNI POPEDEZ LITIGATION ATTORNEY ASSOCIATE-HAZ[employer]OUS [employer] [facility] 10-22-2023 15:05-0500 Body temperature 97.34 [degF] BRITTNI POPEDEZ LITIGATION ATTORNEY ASSOCIATE-HA[employer]ARDOUS [employer] [facility] 10-22-2023 10:16-0500 Body height 167.6 cm BRITTNI POPEDEZ LITIGATION ATTORNEY ASSOCIATE-HAZARDOUS [employer] [facility] 10-22-2023 10:16-0500 Body weight 61.4 kg 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 [facility] 10-22-2023 10:16-0500 Heart rate 76 /min 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 [facility] 07-24-2023 16:14-0400 Body temperature 97.16 [degF] FLIP MARTIN MD [facility] 07-24-2023 16:14-0400 Diastolic Blood Pressure Non-Invasive 82 1 FLIP MARTIN MD [facility] 07-24-2023 16:14-0400 Heart rate 65 /min FLIP MARTIN MD [facility] 07-24-2023 16:14-0400 Respiratory rate 16 /min FLIP MARTIN MD [facility] 07-24-2023 16:14-0400 Systolic Blood Pressure Non-Invasive 109 1 FLIP MARTIN MD [facility] 07-24-2023 16:00-0400 Body temperature 97.52 [degF] FLIP MARTIN MD [facility] 07-24-2023 16:00-0400 Heart rate 81 /min FLIP MARTIN MD [facility] 07-24-2023 16:00-0400 systolic 108 mm[Hg] FLIP MARTIN MD [facility] 07-24-2023 15:45-0400 Diastolic Blood Pressure Non-Invasive 74 1 FLIP MARTIN MD [facility] 07-24-2023 15:45-0400 Heart rate 85 /min FLIP MARTIN MD [facility] 07-24-2023 15:45-0400 Mean blood pressure 84 mm[Hg] FLIP MARTIN MD [facility] 07-24-2023 15:45-0400 Respiratory rate 16 /min FLIP MARTIN MD [facility] 07-24-2023 15:45-0400 Systolic Blood Pressure Non-Invasive 106 1 FLIP MARTIN MD [facility] 07-24-2023 15:30-0400 diastolic 87 mm[Hg] FLIP MARTIN MD [facility] 07-24-2023 15:30-0400 Heart rate 78 /min FLIP MARTIN MD [facility] 07-24-2023 15:00-0400 Mean blood pressure 92 mm[Hg] FLIP MARTIN MD [facility] 07-24-2023 14:34-0400 Mean blood pressure 114 mm[Hg] FLIP MARTIN MD [address] [place] [address] 07-24-2023 14:00-0400 Body temperature 97.34 [degF] FLIP MARTIN MD [address] [place] [address] 07-24-2023 13:55-0400 Respiratory Rate - Anes 17 br/min FLIP MARTIN MD [address] [place] [address] 07-24-2023 13:50-0400 Body temperature 93.88 [degF] FLIP MARTIN MD [address] [place] [address] 07-24-2023 13:50-0400 Respiratory Rate - Anes 14 br/min FLIP MARTIN MD [facility] 07-24-2023 13:45-0400 Body temperature 93.9 [degF] FLIP MARTIN MD [address] [place] [address] 07-24-2023 13:45-0400 Respiratory Rate - Anes 16 br/min FLIP MARTIN MD [facility] 07-24-2023 13:40-0400 Body temperature 93.87 [degF] FLIP MARTIN MD [address] [place] [address] 07-24-2023 10:08-0400 Body height 167.6 cm FLIP MARTIN MD [facility] 07-24-2023 10:08-0400 Body weight 67.8 kg FLIP MARTIN MD [facility] 07-24-2023 10:08-0400 Heart rate 100 /min FLIP MARTIN MD [facility] 07-16-2023 09:45-0400 Body temperature 97.88 [degF] FLIP MARTIN MD [facility] 07-16-2023 09:45-0400 Diastolic Blood Pressure Non-Invasive 81 1 FLIP MARTIN MD [facility] 07-16-2023 09:45-0400 Heart rate 103 /min FLIP MARTIN MD [facility] 07-16-2023 09:45-0400 Reason For Taking VItal Signs FLIP MARTIN MD [facility] 07-16-2023 09:45-0400 Respiratory rate 16 /min FLIP MARTIN MD [facility] 07-16-2023 09:45-0400 Systolic Blood Pressure Non-Invasive 107 1 FLIP MARTIN MD [facility] 07-16-2023 06:25-0400 Body temperature 98.42 [degF] FLIP MARTIN MD [facility] 07-16-2023 06:25-0400 Diastolic Blood Pressure Non-Invasive 77 1 FLIP MARTIN MD [facility] 07-16-2023 06:25-0400 Heart rate 106 /min FLIP MARTIN MD [facility] 07-16-2023 06:25-0400 Reason For Taking VItal Signs FLIP MARTIN MD [facility] 07-16-2023 06:25-0400 Respiratory rate 16 /min FLIP MARTIN MD [facility] 07-16-2023 06:25-0400 Systolic Blood Pressure Non-Invasive 110 1 FLIP MARTIN MD [facility] 07-16-2023 02:07-0400 Body temperature 98.6 [degF] FLIP MARTIN MD [facility] 07-16-2023 02:07-0400 Diastolic Blood Pressure Non-Invasive 81 1 FLIP MARTIN MD [facility] 07-16-2023 02:07-0400 Heart rate 97 /min FLIP MARTIN MD [facility] 07-16-2023 02:07-0400 Systolic Blood Pressure Non-Invasive 108 1 FLIP MARTIN MD [facility] 07-15-2023 21:54-0400 Respiratory rate 18 /min FLIP MARTIN MD [facility] 07-15-2023 15:00-0400 Reason For Taking VItal Signs FLIP MARTIN MD [facility] 07-15-2023 14:00-0400 Blood Pressure Cuff Size FLIP MARTIN MD [facility] 07-15-2023 14:00-0400 Blood Pressure Location FLIP MARTIN MD [facility] 07-15-2023 14:00-0400 Blood Pressure Method FLIP MARTIN MD [facility] 07-14-2023 22:31-0400 Blood Pressure Cuff Size FLIP MARTIN MD [facility] 07-14-2023 22:31-0400 Blood Pressure Location FLIP MARTIN MD [facility] 07-14-2023 22:31-0400 Blood Pressure Method FLIP MARTIN MD [facility] 07-14-2023 14:39-0400 Blood Pressure Cuff Size FLIP MARTIN MD [facility] 07-14-2023 14:39-0400 Blood Pressure Location FLIP MARTIN MD [facility] 07-14-2023 14:39-0400 Blood Pressure Method FLIP MARTIN MD [facility] 07-09-2023 19:11-0400 Heart rate 88 /min FLIP MARTIN MD [facility] 07-09-2023 14:26-0400 Heart rate 68 /min FLIP MARTIN MD [facility] 07-09-2023 13:50-0400 Heart rate 88 /min FLIP MARTIN MD [facility] 07-09-2023 07:02-0400 Body height 167.6 cm FLIP MARTIN MD [facility] 07-09-2023 07:02-0400 Body weight 62.8 kg FLIP MARTIN MD [facility] 07-09-2023 07:02-0400 Body weight 22.36 kg/m2 FLIP MARTIN MD [facility] 07-08-2023 20:24-0400 Body weight 62.8 kg FLIP MARTIN MD [facility] 05-07-2023 14:50-0400 Body temperature 97.88 [degF] FLIP MARTIN MD [facility] 05-07-2023 14:50-0400 Diastolic Blood Pressure Non-Invasive 87 1 FLIP MARTIN MD [facility] 05-07-2023 14:50-0400 Heart rate 90 /min FLIP MARTIN MD [facility] 05-07-2023 14:50-0400 Respiratory rate 16 /min FLIP MARTIN MD [facility] 05-07-2023 14:50-0400 Systolic Blood Pressure Non-Invasive 119 1 FLIP MARTIN MD [facility] 05-07-2023 09:41-0400 Body temperature 98.42 [degF] FLIP MARTIN MD [facility] 05-07-2023 09:41-0400 Diastolic Blood Pressure Non-Invasive 90 1 FLIP MARTIN MD [facility] 05-07-2023 09:41-0400 Heart rate 83 /min FLIP MARTIN MD [facility] 05-07-2023 09:41-0400 Respiratory rate 16 /min FLIP MARTIN MD [facility] 05-07-2023 09:41-0400 Systolic Blood Pressure Non-Invasive 148 1 FLIP MARTIN MD [facility] 05-07-2023 06:22-0400 Body temperature 98.24 [degF] FLIP MARTIN MD [facility] 05-07-2023 06:22-0400 Diastolic Blood Pressure Non-Invasive 74 1 FLIP MARTIN MD [facility] 05-07-2023 06:22-0400 Heart rate 81 /min FLIP MARTIN MD [facility] 05-07-2023 06:22-0400 Respiratory rate 16 /min FLIP MARTIN MD [facility] 05-07-2023 06:22-0400 Systolic Blood Pressure Non-Invasive 109 1 FLIP MARTIN MD [facility] 05-04-2023 15:52-0400 Blood Pressure Cuff Size FLIP MARTIN MD [facility] 05-04-2023 15:52-0400 Blood Pressure Location FLIP MARTIN MD [facility] 05-04-2023 15:52-0400 Blood Pressure Method FLIP MARTIN MD [facility] 05-04-2023 03:44-0400 Reason For Taking VItal Signs FLIP MARTIN MD [facility] 05-03-2023 23:02-0400 Reason For Taking VItal Signs FLIP MARTIN MD [facility] 05-03-2023 18:07-0400 Reason For Taking VItal Signs FLIP MARTIN MD [facility] 04-30-2023 18:27-0400 Blood Pressure Cuff Size FLIP MARTIN MD [facility] 04-30-2023 18:27-0400 Blood Pressure Location FLIP MARTIN MD [facility] 04-30-2023 18:27-0400 Blood Pressure Method FLIP MARTIN MD [facility] 04-30-2023 18:27-0400 Heart rate 79 /min FLIP MARTIN MD [facility] 04-30-2023 14:28-0400 Blood Pressure Cuff Size FLIP MARTIN MD [facility] 04-30-2023 14:28-0400 Heart rate 83 /min FLIP MARTIN MD [facility] 04-30-2023 10:52-0400 Heart rate 90 /min FLIP MARTIN MD [facility] 04-29-2023 11:30-0400 Respiratory Rate - Anes 18 br/min FLIP MARTIN MD [facility] 04-29-2023 10:40-0400 Heart rate 72 /min FLIP MARTIN MD [facility] 04-29-2023 10:25-0400 Heart rate 73 /min FLIP MARTIN MD [facility] 04-29-2023 10:20-0400 Heart rate 74 /min FLIP MARTIN MD [facility] 04-28-2023 13:10-0400 Body height 167 cm FLIP MARTIN MD [facility] 04-28-2023 13:10-0400 Body weight 63.9 kg FLIP MARTIN MD [facility] 04-28-2023 13:10-0400 Body weight 22.91 kg/m2 FLIP MARTIN MD [facility] 04-28-2023 01:00-0400 Mean blood pressure 106 mm[Hg] FLIP MARTIN MD [facility] 04-28-2023 00:45-0400 Mean blood pressure 113 mm[Hg] FLIP MARTIN MD [facility] 04-28-2023 00:30-0400 Mean blood pressure 110 mm[Hg] FLIP MARTIN MD [facility] 04-27-2023 16:11-0400 Body weight 63.9 kg FLIP MARTIN MD [facility] 03-05-2023 16:12-0400 Body temperature 98.6 [degF] FLIP MARTIN MD [facility] 03-05-2023 16:12-0400 Diastolic Blood Pressure Non-Invasive 80 1 FLIP MARTIN MD [facility] 03-05-2023 16:12-0400 Heart rate 87 /min FLIP MARTIN MD [facility] 03-05-2023 16:12-0400 Respiratory rate 16 /min FLIP MARTIN MD [facility] 03-05-2023 16:12-0400 Systolic Blood Pressure Non-Invasive 108 1 FLIP MARTIN MD [facility] 03-05-2023 07:05-0400 Body temperature 97.88 [degF] FLIP MARTIN MD [facility] 03-05-2023 07:05-0400 Diastolic Blood Pressure Non-Invasive 68 1 FLIP MARTIN MD [facility] 03-05-2023 07:05-0400 Heart rate 96 /min FLIP MARTIN MD [facility] 03-05-2023 07:05-0400 Respiratory rate 16 /min FLIP MARTIN MD [facility] 03-05-2023 07:05-0400 Systolic Blood Pressure Non-Invasive 99 1 FLIP MARTIN MD [facility] 03-04-2023 21:26-0400 Body temperature 98.42 [degF] FLIP MARTIN MD [facility] 03-04-2023 21:26-0400 Diastolic Blood Pressure Non-Invasive 88 1 FLIP MARTIN MD [facility] 03-04-2023 21:26-0400 Heart rate 93 /min FLIP MARTIN MD [facility] 03-04-2023 21:26-0400 Reason For Taking VItal Signs FLIP MARTIN MD [facility] 03-04-2023 21:26-0400 Respiratory rate 18 /min FLIP MARTIN MD [facility] 03-04-2023 21:26-0400 Systolic Blood Pressure Non-Invasive 122 1 FLIP MARTIN MD [facility] 03-03-2023 21:35-0400 Reason For Taking VItal Signs FLIP MARTIN MD [facility] 03-01-2023 20:41-0400 Reason For Taking VItal Signs FLIP MARTIN MD [facility] 03-01-2023 08:57-0400 Heart rate 68 /min FLIP MARTIN MD [facility] 03-01-2023 04:50-0400 Blood Pressure Location FLIP MARTIN MD [facility] 03-01-2023 04:50-0400 Blood Pressure Method FLIP MARTIN MD [facility] 02-23-2023 21:09-0400 Body height 167.6 cm FLIP MARTIN MD [facility] 02-23-2023 21:09-0400 Body weight 55.7 kg FLIP MARTIN MD [facility] 02-23-2023 21:09-0400 Body weight 19.83 kg/m2 FLIP MARTIN MD [facility] 02-23-2023 11:58-0400 Body temperature 97.7 [degF] FLIP MARTIN MD [facility] 02-23-2023 11:58-0400 Body weight 55.7 kg FLIP MARTIN MD [facility] 02-17-2023 11:08-0400 Diastolic Blood Pressure Non-Invasive 77 1 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 [facility] 02-17-2023 11:08-0400 Heart rate 85 /min 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 [facility] 02-17-2023 11:08-0400 Respiratory rate 16 /min 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 [facility] 02-17-2023 11:08-0400 Systolic Blood Pressure Non-Invasive 119 1 BRITTNI POPEDEZ LITIGATION ATTORNEY ASSOCIATE-HAZARDOUS [employer] [facility] 02-17-2023 10:50-0400 Diastolic Blood Pressure Non-Invasive 83 1 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 [facility] 02-17-2023 10:50-0400 Heart rate 78 /min 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 [facility] 02-17-2023 10:50-0400 Respiratory rate 16 /min 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 [facility] 02-17-2023 10:50-0400 Systolic Blood Pressure Non-Invasive 137 1 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 [facility] 02-17-2023 10:35-0400 Diastolic Blood Pressure Non-Invasive 87 1 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 [facility] 02-17-2023 10:35-0400 Heart rate 84 /min 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 [facility] 02-17-2023 10:35-0400 Respiratory rate 16 /min BRITTNI POPEDEZ LITIGATION ATTORNEY ASSOCIATE-HAZARDOUS W[employer] [facility] 02-17-2023 10:35-0400 Systolic Blood Pressure Non-Invasive 128 1 BRITTNI POPEDEZ LITIGATION ATTORNEY ASSOCIATE-HAZARDOUS W[employer] [facility] 02-17-2023 09:02-0400 Blood Pressure Cuff Size BRITTNI POPEDEZ LITIGATION ATTORNEY ASSOCIATE-HAZARDOUS W[employer] [facility] 02-17-2023 09:02-0400 Blood Pressure Location BRITTNI POPEDEZ LITIGATION ATTORNEY ASSOCIATE-HAZARDOUS [employer] [facility] 02-17-2023 09:02-0400 Blood Pressure Method BRITTNI POPEDEZ LITIGATION ATTORNEY ASSOCIATE-HAZARDOUS [employer] [facility] 02-17-2023 09:02-0400 Body height 167.6 cm 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 [facility] 02-17-2023 09:02-0400 Body temperature 97.88 [degF] 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 [facility] 02-17-2023 09:02-0400 Body weight 50 kg 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 [facility] 02-17-2023 09:02-0400 Body weight 17.8 kg/m2 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 [facility] 02-17-2023 09:02-0400 Heart rate 94 /min BRITTNI LU LITIGATION ATTORNEY [employer]ATE[employer] [facility] 01-06-2023 12:50-0500 Body temperature 98.06 [degF] FLIP MARTIN MD [facility] 01-06-2023 12:50-0500 Diastolic Blood Pressure Non-Invasive 92 1 FLIP MARTIN MD [facility] 01-06-2023 12:50-0500 Heart rate 73 /min FLIP MARTIN MD [facility] 01-06-2023 12:50-0500 Reason For Taking VItal Signs FLIP MARTIN MD [facility] 01-06-2023 12:50-0500 Respiratory rate 16 /min FLIP MARTIN MD [facility] 01-06-2023 12:50-0500 Systolic Blood Pressure Non-Invasive 137 1 FLIP MARTIN MD [facility] 01-06-2023 07:55-0500 Body temperature 98.06 [degF] FLIP MARTIN MD [facility] 01-06-2023 07:55-0500 Diastolic Blood Pressure Non-Invasive 87 1 FLIP MARTIN MD [facility] 01-06-2023 07:55-0500 Heart rate 64 /min FLIP MARTIN MD [facility] 01-06-2023 07:55-0500 Reason For Taking VItal Signs FLIP MARTIN MD [facility] 01-06-2023 07:55-0500 Respiratory rate 16 /min FLIP MARTIN MD [facility] 01-06-2023 07:55-0500 Systolic Blood Pressure Non-Invasive 121 1 FLIP MARTIN MD [facility] 01-06-2023 07:53-0500 Reason For Taking VItal Signs FLIP MARTIN MD [facility] 01-06-2023 04:04-0500 Body temperature 97.88 [degF] FLIP MARTIN MD [facility] 01-06-2023 04:04-0500 Diastolic Blood Pressure Non-Invasive 73 1 FLIP MARTIN MD [facility] 01-06-2023 04:04-0500 Heart rate 68 /min FLIP MARTIN MD [facility] 01-06-2023 04:04-0500 Respiratory rate 16 /min FLIP MARTIN MD [facility] 01-06-2023 04:04-0500 Systolic Blood Pressure Non-Invasive 109 1 FLIP MARTIN MD [facility] 01-05-2023 23:23-0500 Heart rate 80 /min FLIP MARTIN MD [facility] 01-05-2023 04:12-0500 Blood Pressure Cuff Size FLIP MARTIN MD [facility] 01-05-2023 04:12-0500 Blood Pressure Location FLPI MARTIN MD [facility] 01-05-2023 04:12-0500 Blood Pressure Method FLIP MARTIN MD [facility] 01-05-2023 00:07-0500 Blood Pressure Cuff Size FLIP MARTIN MD [facility] 01-05-2023 00:07-0500 Blood Pressure Location FLIP MARTIN MD [facility] 01-05-2023 00:07-0500 Blood Pressure Method FLIP MARTIN MD [facility] 01-04-2023 20:20-0500 Blood Pressure Method FLIP MARTIN MD [address] [place] [address] 01-02-2023 15:45-0500 Heart rate 97 /min FLIP MARTIN MD [address] [place] [address] 01-02-2023 15:40-0500 Heart rate 100 /min FLIP MARTIN MD [address] [place] [address] 01-02-2023 15:35-0500 Heart rate 90 /min FLIP MARTIN MD [facility] 01-01-2023 16:31-0500 Body height 167.6 cm FLIP MARTIN MD [facility] 01-01-2023 16:31-0500 Body weight 47.7 kg FLIP MARTIN MD [facility] 01-01-2023 16:31-0500 Body weight 16.98 kg/m2 FLIP MARTIN MD [facility] 01-01-2023 16:08-0500 Body temperature 97.88 [degF] FLIP MARTIN MD [facility] 01-01-2023 16:08-0500 Diastolic Blood Pressure Non-Invasive 91 1 FLIP MARTIN MD [facility] 01-01-2023 16:08-0500 Heart rate 72 /min FLIP MARTIN MD [facility] 01-01-2023 16:08-0500 Respiratory rate 16 /min FLIP MARTIN MD [facility] 01-01-2023 16:08-0500 Systolic Blood Pressure Non-Invasive 129 1 FLIP MARTIN MD [facility] 01-01-2023 15:22-0500 Diastolic Blood Pressure Non-Invasive 89 1 FLIP MARTIN MD [facility] 01-01-2023 15:22-0500 Heart rate 50 /min FLIP MARTIN MD [facility] 01-01-2023 15:22-0500 Respiratory rate 16 /min FLIP MARTIN MD [facility] 01-01-2023 15:22-0500 Systolic Blood Pressure Non-Invasive 121 1 FLIP MARTIN MD [facility] 01-01-2023 13:37-0500 Body height 167.6 cm FLIP MARTIN MD [facility] 01-01-2023 13:37-0500 Respiratory rate 18 /min FLIP MARTIN MD [facility] 01-01-2023 13:31-0500 Body temperature 97.88 [degF] FLIP MARTIN MD [facility] 01-01-2023 13:31-0500 Diastolic Blood Pressure Non-Invasive 106 1 FLIP MARTIN MD [facility] 01-01-2023 13:31-0500 Heart rate 62 /min FLIP MARTIN MD [facility] 01-01-2023 13:31-0500 Systolic Blood Pressure Non-Invasive 137 1 FLIP MARTIN MD [facility] 11-15-2022 13:45-0500 Diastolic Blood Pressure Non-Invasive 60 1 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 [facility] 11-15-2022 13:45-0500 Heart rate 63 /min 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 [facility] 11-15-2022 13:45-0500 Respiratory rate 16 /min 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 [facility] 11-15-2022 13:45-0500 Systolic Blood Pressure Non-Invasive 125 1 BRITTNI POPEDEZ LITIGATION ATTORNEY ASSOCIATE-HAZARDOUS W[employer] [facility] 11-15-2022 13:30-0500 Diastolic Blood Pressure Non-Invasive 95 1 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 [facility] 11-15-2022 13:30-0500 Heart rate 60 /min BRITTNI POPEDEZ LITIGATION ATTORNEY ASSOCIATE-HAZARDOUS [employer] [facility] 11-15-2022 13:30-0500 Respiratory rate 14 /min 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 [facility] 11-15-2022 13:30-0500 Systolic Blood Pressure Non-Invasive 132 1 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 [facility] 11-15-2022 13:17-0500 Diastolic Blood Pressure Non-Invasive 84 1 BRITTNI POPEDEZ LITIGATION ATTORNEY ASSOCIATE-HAZARDOUS W[employer] [facility] 11-15-2022 13:17-0500 Heart rate 67 /min 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 [facility] 11-15-2022 13:17-0500 Respiratory rate 14 /min 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 [facility] 11-15-2022 13:17-0500 Systolic Blood Pressure Non-Invasive 136 1 BRITTNI POPEDEZ LITIGATION ATTORNEY ASSOCIATE-HAZARDOUS W[employer]OVER [facility] 11-15-2022 12:35-0500 Heart rate 66 /min 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 [facility] 11-15-2022 12:25-0500 Heart rate 67 /min 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 [facility] 11-15-2022 12:20-0500 Heart rate 72 /min BRITTNI LU APRN-HAZARDOUS W[employer] [facility] 11-15-2022 09:52-0500 Blood Pressure Cuff Size 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 [facility] 11-15-2022 09:52-0500 Blood Pressure Location 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 [facility] 11-15-2022 09:52-0500 Blood Pressure Method 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 [facility] 11-15-2022 09:52-0500 Body height 167.6 cm 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 [facility] 11-15-2022 09:52-0500 Body temperature 98.24 [degF] BRITTNI LU APRN-HAZARDOUS [employer] [facility] 11-15-2022 09:52-0500 Body weight 50 kg BRITTNIRA RONY ALLENN-HAZARDOUS [employer] [facility] 11-15-2022 09:52-0500 Body weight 17.8 kg/m2 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 [facility] 10-08-2022 14:35-0500 Diastolic Blood Pressure Non-Invasive 83 1 FLIP MARTIN MD [facility] 10-08-2022 14:35-0500 Heart rate 85 /min FLIP MARTIN MD [facility] 10-08-2022 14:35-0500 Reason For Taking VItal Signs FLIP MARTIN MD [facility] 10-08-2022 14:35-0500 Respiratory rate 16 /min FLIP MARTIN MD [facility] 10-08-2022 14:35-0500 Systolic Blood Pressure Non-Invasive 114 1 FLIP MARTIN MD [facility] 10-08-2022 07:30-0500 Body temperature 98.24 [degF] FLIP MARTIN MD [facility] 10-08-2022 07:30-0500 Diastolic Blood Pressure Non-Invasive 73 1 FLIP MARTIN MD [facility] 10-08-2022 07:30-0500 Heart rate 81 /min FLIP MARTIN MD [facility] 10-08-2022 07:30-0500 Reason For Taking VItal Signs FLIP MARTIN MD [facility] 10-08-2022 07:30-0500 Respiratory rate 14 /min FLIP MARTIN MD [facility] 10-08-2022 07:30-0500 Systolic Blood Pressure Non-Invasive 99 1 FLIP MARTIN MD [facility] 10-07-2022 21:42-0500 Body temperature 98.24 [degF] FLIP MARTIN MD [facility] 10-07-2022 21:42-0500 Diastolic Blood Pressure Non-Invasive 69 1 FLIP MARTIN MD [facility] 10-07-2022 21:42-0500 Heart rate 86 /min FLIP MARTIN MD [facility] 10-07-2022 21:42-0500 Respiratory rate 16 /min FLIP MARTIN MD [facility] 10-07-2022 21:42-0500 Systolic Blood Pressure Non-Invasive 94 1 FLIP MARTIN MD [facility] 10-07-2022 15:38-0500 Body temperature 98.24 [degF] FLIP MARTIN MD [facility] 10-07-2022 15:38-0500 Reason For Taking VItal Signs FLIP MARTIN MD [facility] 10-05-2022 20:19-0500 Heart rate 102 /min FLIP MARTIN MD [facility] 10-05-2022 15:56-0500 Heart rate 74 /min FLIP MARTIN MD [facility] 10-05-2022 12:04-0500 Heart rate 79 /min FLIP MARTIN MD [facility] 10-01-2022 21:35-0500 Heart rate 62 /min FLIP MARTIN MD [facility] 09-30-2022 17:45-0500 Body height 167.6 cm FLIP MARTIN MD [facility] 09-30-2022 17:45-0500 Body weight 50.4 kg FLIP MARTIN MD [facility] 09-30-2022 17:45-0500 Body weight 17.94 kg/m2 FLIP MARTIN MD [facility] 09-30-2022 10:13-0500 Body weight 50.4 kg FLIP MARTIN MD [facility] 09-27-2022 15:45-0500 Body temperature 99.14 [degF] GUCCI ALEXANDRE MD [facility] 09-27-2022 15:45-0500 Body weight 50.2 kg GUCCI ALEXANDRE MD [facility] 09-27-2022 15:45-0500 Diastolic Blood Pressure Non-Invasive 108 1 GUCCI ALEXANDRE MD [facility] 09-27-2022 15:45-0500 Heart rate 122 /min GUCCI ALEXANDRE MD [facility] 09-27-2022 15:45-0500 Systolic Blood Pressure Non-Invasive 126 1 GUCCI ALEXANDRE MD [facility] 08-16-2022 13:01-0400 Body temperature 98.06 [degF] FLIP MARTIN MD [facility] 08-16-2022 13:01-0400 Diastolic blood pressure 75 mm[Hg] FLIP MARTIN MD [facility] 08-16-2022 13:01-0400 Heart rate 107 /min FLIP MARTIN MD [facility] 08-16-2022 13:01-0400 Reason For Taking VItal Signs FLIP MARTIN MD [facility] 08-16-2022 13:01-0400 Respiratory rate 16 /min FLIP MARTIN MD [facility] 08-16-2022 13:01-0400 Systolic blood pressure 102 mm[Hg] FLIP MARTIN MD [facility] 08-16-2022 07:18-0400 Body temperature 97.52 [degF] FLIP MARTIN MD [facility] 08-16-2022 07:18-0400 Diastolic blood pressure 88 mm[Hg] FLIP MARTIN MD [facility] 08-16-2022 07:18-0400 Heart rate 99 /min FLIP MARTIN MD [facility] 08-16-2022 07:18-0400 Reason For Taking VItal Signs FLIP MARTIN MD [facility] 08-16-2022 07:18-0400 Respiratory rate 16 /min FLIP MARTIN MD [facility] 08-16-2022 07:18-0400 Systolic blood pressure 131 mm[Hg] FLIP MARTIN MD [facility] 08-16-2022 04:44-0400 Body temperature 97.7 [degF] FLIP MARTIN MD [facility] 08-16-2022 04:44-0400 Diastolic blood pressure 82 mm[Hg] FLIP MARTIN MD [facility] 08-16-2022 04:44-0400 Heart rate 92 /min FLIP MARTIN MD [facility] 08-16-2022 04:44-0400 Respiratory rate 16 /min FLIP MARTIN MD [facility] 08-16-2022 04:44-0400 Systolic blood pressure 108 mm[Hg] FLIP MARTIN MD [facility] 08-15-2022 20:36-0400 Mean blood pressure 94 mm[Hg] FLIP MARTIN MD [facility] 08-15-2022 20:36-0400 Reason For Taking VItal Signs FLIP MARTIN MD [facility] 08-15-2022 08:42-0400 Heart rate 92 /min FLIP MARTIN MD [facility] 08-14-2022 13:15-0400 Heart rate 75 /min FLIP MARTIN MD [facility] 08-14-2022 13:15-0400 Mean blood pressure 104 mm[Hg] FLIP MARTIN MD [facility] 08-14-2022 13:05-0400 Heart rate 80 /min FLIP MARTIN MD [facility] 08-14-2022 13:05-0400 Mean blood pressure 104 mm[Hg] FLIP MARTIN MD [facility] 08-11-2022 03:14-0400 Heart rate 88 /min FLIP MARTIN MD [facility] 08-10-2022 23:33-0400 Heart rate 75 /min FLIP MARTIN MD [facility] 08-08-2022 16:51-0400 Body height 167.6 cm FLIP MARTIN MD [facility] 08-08-2022 16:51-0400 Body weight 52.5 kg FLIP MARTIN MD [facility] 08-08-2022 16:51-0400 Body weight 18.69 kg/m2 FLIP MARTIN MD [facility] 08-08-2022 16:05-0400 Diastolic blood pressure 87 mm[Hg] 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 [facility] 08-08-2022 16:05-0400 Heart rate 65 /min 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 [facility] 08-08-2022 16:05-0400 Respiratory rate 18 /min 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 [facility] 08-08-2022 16:05-0400 Systolic blood pressure 130 mm[Hg] 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 [facility] 08-08-2022 14:27-0400 Body temperature 97.88 [degF] 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 [facility] 08-08-2022 14:27-0400 Reason For Taking VItal Signs 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 [facility] 08-08-2022 13:43-0400 diastolic 87 mm[Hg] 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 [facility] 08-08-2022 13:43-0400 Heart rate 71 /min 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 [facility] 08-08-2022 13:43-0400 Respiratory rate 18 /min BRITTNI POPEDEZ LITIGATION ATTORNEY ASSOCIATE-HAZARDOUS [employer] [facility] 08-08-2022 13:43-0400 systolic 126 mm[Hg] 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 [facility] 07-04-2022 13:38-0400 Diastolic blood pressure 80 mm[Hg] 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 [facility] 07-04-2022 13:38-0400 Heart rate 77 /min 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 [facility] 07-04-2022 13:38-0400 Mean blood pressure 91 mm[Hg] 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 [facility] 07-04-2022 13:38-0400 Respiratory rate 18 /min 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 [facility] 07-04-2022 13:38-0400 Systolic blood pressure 113 mm[Hg] 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 [facility] 07-04-2022 13:20-0400 Diastolic blood pressure 85 mm[Hg] 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 [facility] 07-04-2022 13:20-0400 Heart rate 74 /min 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 [facility] 07-04-2022 13:20-0400 Mean blood pressure 95 mm[Hg] 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 [facility] 07-04-2022 13:20-0400 Respiratory rate 16 /min 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 [facility] 07-04-2022 13:20-0400 Systolic blood pressure 114 mm[Hg] 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 [facility] 07-04-2022 12:58-0400 Diastolic blood pressure 86 mm[Hg] 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 [facility] 07-04-2022 12:58-0400 Heart rate 77 /min BRITTNI POPEDEZ LITIGATION ATTORNEY ASSOCIATE-HAZARDOUS [employer] [facility] 07-04-2022 12:58-0400 Mean blood pressure 99 mm[Hg] 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 [facility] 07-04-2022 12:58-0400 Respiratory rate 16 /min BRITTNI PRATHERZ LITIGATION ATTORNEY ASSOCIATE-HAZARDOUS [employer] [facility] 07-04-2022 12:58-0400 Systolic blood pressure 124 mm[Hg] BRITTNI POPEDEZ LITIGATION ATTORNEY ASSOCIATE-HAZARDOUS [employer] [facility] 07-04-2022 10:37-0400 Body height 167.6 cm BRITTNI POPEDEZ LITIGATION ATTORNEY ASSOCIATE-HAZARDOUS [employer] [facility] 07-04-2022 10:37-0400 Body temperature 98.06 [degF] 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 [facility] 07-04-2022 10:37-0400 Body weight 45.4 kg 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 [facility] 07-04-2022 10:37-0400 Body weight 16.16 kg/m2 BRITTNI POPEDEZ LITIGATION ATTORNEY ASSOCIATE-HAZARDOUS [employer] [facility] 07-04-2022 10:37-0400 diastolic 87 mm[Hg] BRITTNI POPEDEZ LITIGATION ATTORNEY ASSOCIATE-HAZARDOUS [employer] [facility] 07-04-2022 10:37-0400 Heart rate 88 /min BRITTNI POPEDEZ LITIGATION ATTORNEY ASSOCIATE-HAZARDOUS [employer] [facility] 07-04-2022 10:37-0400 systolic 123 mm[Hg] 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 [facility] 04-19-2022 16:12-0400 Body temperature 98.42 [degF] FLIP MARTIN MD [facility] 04-19-2022 16:12-0400 Diastolic blood pressure 88 mm[Hg] FLIP MARTIN MD [facility] 04-19-2022 16:12-0400 Heart rate 72 /min FLIP MARTIN MD [facility] 04-19-2022 16:12-0400 Reason For Taking VItal Signs FLIP MARTIN MD [facility] 04-19-2022 16:12-0400 Respiratory rate 16 /min FLIP MARTIN MD [facility] 04-19-2022 16:12-0400 Systolic blood pressure 125 mm[Hg] FLIP MARTIN MD [facility] 04-19-2022 12:04-0400 Body temperature 98.6 [degF] FLIP MARTIN MD [facility] 04-19-2022 12:04-0400 Diastolic blood pressure 100 mm[Hg] FLIP MARTIN MD [facility] 04-19-2022 12:04-0400 Heart rate 82 /min FLIP MARTIN MD [facility] 04-19-2022 12:04-0400 Reason For Taking VItal Signs FLIP MARTIN MD [facility] 04-19-2022 12:04-0400 Respiratory rate 16 /min FLIP MARTIN MD [facility] 04-19-2022 12:04-0400 Systolic blood pressure 133 mm[Hg] FLIP MARTIN MD [facility] 04-19-2022 08:19-0400 Body temperature 97.7 [degF] FLIP MARTIN MD [facility] 04-19-2022 08:19-0400 Diastolic blood pressure 87 mm[Hg] FLIP MARTIN MD [facility] 04-19-2022 08:19-0400 Heart rate 78 /min FLIP MARTIN MD [facility] 04-19-2022 08:19-0400 Reason For Taking VItal Signs FLIP MARTIN MD [facility] 04-19-2022 08:19-0400 Respiratory rate 16 /min FLIP MARTIN MD [facility] 04-19-2022 08:19-0400 Systolic blood pressure 123 mm[Hg] FLIP MARTIN MD [facility] 04-17-2022 13:37-0400 Mean blood pressure 109 mm[Hg] FLIP MARTIN MD [facility] 04-17-2022 08:19-0400 Mean blood pressure 88 mm[Hg] FLIP MARTIN MD [facility] 04-15-2022 21:40-0400 Mean blood pressure 106 mm[Hg] FLIP MARTIN MD [facility] 04-14-2022 22:09-0400 Body height 167.6 cm FLIP MARTIN MD [facility] 04-14-2022 22:09-0400 Body weight 45.4 kg FLIP MARTIN MD [facility] 04-14-2022 22:09-0400 Body weight 16.16 kg/m2 FLIP MARTIN MD [facility] 04-11-2022 15:18-0400 Diastolic blood pressure 96 mm[Hg] 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 [facility] 04-11-2022 15:18-0400 Heart rate 72 /min 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 [facility] 04-11-2022 15:18-0400 Respiratory rate 16 /min 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 [facility] 04-11-2022 15:18-0400 Systolic blood pressure 144 mm[Hg] 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 [facility] 04-11-2022 14:45-0400 Diastolic Blood Pressure NBP 87 1 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 [facility] 04-11-2022 14:45-0400 Heart rate 69 /min 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 [facility] 04-11-2022 14:45-0400 Respiratory rate 14 /min 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 [facility] 04-11-2022 14:45-0400 Systolic Blood Pressure NBP 130 1 BRITTNI POPEDEZ LITIGATION ATTORNEY ASSOCIATE-HAZARDOUS [employer]OVER [facility] 04-11-2022 14:30-0400 Diastolic Blood Pressure NBP 93 1 BRITTNI POPEDEZ LITIGATION ATTORNEY ASSOCIATE-HAZARDOUS W[employer]OVER [facility] 04-11-2022 14:30-0400 Heart rate 70 /min 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 [facility] 04-11-2022 14:30-0400 Respiratory rate 14 /min 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 [facility] 04-11-2022 14:30-0400 Systolic Blood Pressure NBP 126 1 BRITTNI POPEDEZ LITIGATION ATTORNEY ASSOCIATE-HAZARDOUS [employer] [facility] 04-11-2022 14:15-0400 Diastolic blood pressure 97 mm[Hg] 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 [facility] 04-11-2022 14:15-0400 Heart rate 77 /min 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 [facility] 04-11-2022 14:15-0400 Mean blood pressure 112 mm[Hg] BRITTNI POPEDEZ LITIGATION ATTORNEY ASSOCIATE-HAZARDOUS W[employer]OVER [facility] 04-11-2022 14:15-0400 Systolic blood pressure 142 mm[Hg] 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 [facility] 04-11-2022 14:10-0400 Diastolic blood pressure 111 mm[Hg] 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 [facility] 04-11-2022 14:10-0400 Heart rate 76 /min BRITTNI POPEDEZ LITIGATION ATTORNEY ASSOCIATE-HAZARDOUS [employer]OVER [facility] 04-11-2022 14:10-0400 Mean blood pressure 124 mm[Hg] 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 [facility] 04-11-2022 14:10-0400 Systolic blood pressure 150 mm[Hg] BRITTNI POPEDEZ LITIGATION ATTORNEY ASSOCIATE-HAZARDOUS W[employer]OVER [facility] 04-11-2022 14:05-0400 Heart rate 85 /min 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 [facility] 04-11-2022 14:05-0400 Mean blood pressure 96 mm[Hg] 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 [facility] 04-11-2022 13:05-0400 Body temperature 97.88 [degF] BRITTNI POPEDEZ LITIGATION ATTORNEY ASSOCIATE-HAZARDOUS [employer] [facility] 03-26-2022 11:47-0400 Body height 167.6 cm ERI PATRICK LITIGATION ATTORNEY ASSOCIATE-HAZARDOUS [employer] [facility] 03-26-2022 11:47-0400 Body temperature 98.06 [degF] ERI PATRICK LITIGATION ATTORNEY ASSOCIATE-HAZARDOUS [employer]OVER [facility] 03-26-2022 11:47-0400 Body weight 45.4 kg ERI PATRICK LITIGATION ATTORNEY ASSOCIATE-HAZARDOUS [employer] [facility] 03-26-2022 11:47-0400 Body weight 16.16 kg/m2 ERI PATRICK LITIGATION ATTORNEY ASSOCIATE-HAZARDOUS [employer]OVER [facility] 03-26-2022 11:47-0400 diastolic 88 mm[Hg] ERI PATRICK LITIGATION ATTORNEY ASSOCIATE-HAZARDOUS [employer]OVER [facility] 03-26-2022 11:47-0400 Heart rate 76 /min ERI PATRICK LITIGATION ATTORNEY ASSOCIATE-HAZARDOUS [employer] [facility] 03-26-2022 11:47-0400 Respiratory rate 18 /min ERI PATRICK LITIGATION ATTORNEY ASSOCIATE-HAZARDOUS [employer] [facility] 03-26-2022 11:47-0400 systolic 132 mm[Hg] ERI PATRICK LITIGATION ATTORNEY ASSOCIATE-HAZARDOUS [employer]OVER [facility] 12-21-2021 10:38-0500 Body height 167.6 cm FLIP MARTIN MD [facility] 12-21-2021 10:38-0500 Body temperature 98.06 [degF] FLIP MARTIN MD [facility] 12-21-2021 10:38-0500 Body weight 47.7 kg FLIP MARTIN MD [facility] 12-21-2021 10:38-0500 Body weight 16.98 kg/m2 FLIP MARTIN MD [facility] 12-21-2021 10:38-0500 diastolic 101 mm[Hg] FLIP MARTIN MD [facility] 12-21-2021 10:38-0500 Heart rate 81 /min FLIP MARTIN MD [facility] 12-21-2021 10:38-0500 Respiratory rate 16 /min FLIP MARTIN MD [facility] 12-21-2021 10:38-0500 systolic 129 mm[Hg] FLIP MARTIN MD [facility] 07-14-2021 10:43-0400 Body temperature 98.42 [degF] Flip [facility] 07-14-2021 10:43-0400 Diastolic blood pressure 83 mm[Hg] Flip [facility] 07-14-2021 10:43-0400 Heart rate 68 /min Flip [facility] 07-14-2021 10:43-0400 Respiratory rate 18 /min Flip [facility] 07-14-2021 10:43-0400 SaO2% (BldA) [Mass fraction] 100 % Flip [facility] 07-14-2021 10:43-0400 Systolic blood pressure 129 mm[Hg] Flip [facility] 07-14-2021 07:44-0400 Body weight 47.7 kg Flip [facility] Encounters Encounter Date Encounter Type Care Provider Facility Start: 04-06-2025 End: 04-07-2025 Emergency department patient visit GONZALEZ CARMONA MD Facility:A Start: 04-05-2025 ambulatory OLE PACE MD Faci lity:A Start: 04-04-2025 End: 04-05-2025 Emergency department patient visit DR RHIANNON ARTEAGA MD Facility:A Start: 04-04-2025 ambulatory GONZALEZ CARMONA MD Facilit y:A Start: 04-03-2025 End: 04-03-2025 Emergency department patient visit CHRISTO SCALES [facility] Start: 04-01-2025 End: 04-01-2025 Emergency department patient visit GONZALEZ ABEBE [facility] Start: 03-30-2025 End: 03-30-2025 ambulatory GONZALEZ CARMONA MD Facility:A Start: 03-30-2025 End: 03-30-2025 Patient encounter procedure GONZALEZ CARMONA MD [facility] Start: 03-25-2025 ambulatory OLE PACE MD Faci lity:A Start: 03-23-2025 End: 03-23-2025 Emergency department patient visit [facility] Start: 03-15-2025 End: 03-15-2025 Emergency department patient visit GUCCI ALEXANDRE MD [facility] Start: 03-09-2025 End: 03-09-2025 Emergency department patient visit DELMAR MICHAEL DO [facility] Start: 03-08-2025 End: 03-08-2025 Emergency department patient visit GUCCI [facility] Start: 03-08-2025 End: 03-08-2025 ambulatory GONZALEZ CARMONA MD Facility:A Start: 03-08-2025 End: 03-08-2025 Patient encounter procedure GONZALEZ CARMONA MD [employer] [facility] Start: 03-07-2025 End: 03-07-2025 Emergency department patient visit ALICIA LORA [facility] Start: 03-05-2025 End: 03-06-2025 Emergency department patient visit [facility] Start: 02-16-2025 End: 02-16-2025 ambulatory OLE MONK MD Facility:A Start: 02-16-2025 End: 02-16-2025 SAME DAY STAY PINA Alice PANTOJA LITIGATION ATTORNEY ASSOCIATE-HA[employer]ARDOUS [employer]OVER [facility] Start: 02-14-2025 End: 02-14-2025 ambulatory OLE PACE MD Facility:A Start: 02-10-2025 End: 02-10-2025 Emergency department patient visit [facility] Start: 02-01-2025 ambulatory OLE PACE MD Faci lity:A Start: 01-29-2025 End: 01-29-2025 Emergency department patient visit [facility] Start: 01-21-2025 End: 01-21-2025 Emergency department patient visit BEATRICE GUDINO DAMIEN [facility] Start: 12-22-2024 ambulatory OLE PACE MD Faci lity:A Start: 12-22-2024 End: 12-22-2024 ambulatory OLE PACE MD Facility:A Start: 12-22-2024 End: 12-22-2024 SAME DAY STAY NASRIN ISBAEL MD [facility] Start: 12-13-2024 End: 12-13-2024 ambulatory OLE PACE MD Facility:A Start: 12-10-2024 End: 12-10-2024 Emergency department patient visit [facility] Start: 11-15-2024 End: 11-19-2024 ambulatory OLE PACE MD Facility:A Start: 11-15-2024 End: 11-15-2024 ambulatory OLE PACE MD Facility:A Start: 11-06-2024 End: 11-06-2024 Emergency department patient visit KORINA LORA [facility] Start: 10-13-2024 End: 10-13-2024 ambulatory VON BACA MD Facility:A Start: 10-01-2024 ambulatory OLE PACE MD Faci lity:A Start: 09-28-2024 End: 09-28-2024 ambulatory OLE PACE MD Facility:A Start: 08-31-2024 End: 08-31-2024 Emergency department patient visit ALICIA LORA [facility] Start: 08-16-2024 End: 08-16-2024 ambulatory OLE PACE MD Facility:A Start: 08-11-2024 End: 08-11-2024 ambulatory NAYELI BRICE DO Facility:A Start: 08-11-2024 End: 08-11-2024 SAME DAY STAY NASRIN ISABEL MD [facility] Start: 08-06-2024 End: 08-06-2024 Admission to establishment NASRIN ISABEL MD [facility] Start: 08-06-2024 End: 08-06-2024 ambulatory OLE PACE MD Facility:A Start: 07-19-2024 End: 07-19-2024 ambulatory OLE PACE MD Facility:A Start: 07-10-2024 ambulatory FLIP LORA [facility] Start: 07-10-2024 End: 07-10-2024 Emergency department patient visit [facility] Start: 06-24-2024 End: 06-24-2024 Emergency department patient visit GUCCI [facility] Start: 06-21-2024 End: 06-21-2024 ambulatory PROVIDER NOT SPECIFIED OTHER Facility:A Start: 06-10-2024 ambulatory PROVIDER NOT S PECIFIED OTHER Facility:A Start: 06-10-2024 ambulatory PROVIDER NOT S PECIFIED OTHER Facility:A Start: 06-09-2024 End: 06-09-2024 ambulatory VIRAL MANUEL MD Facility:A Start: 06-09-2024 End: 06-09-2024 SAME DAY STAY NASRIN ISABEL MD [employer] [facility] Start: 05-25-2024 ambulatory PROVIDER NOT S PECIFIED OTHER Facility:A Start: 05-25-2024 End: 05-25-2024 Emergency department patient visit GUCCI GARCIA [facility] Start: 05-25-2024 End: 05-25-2024 Emergency department patient visit GONZALEZ GUDINO [facility] Start: 05-24-2024 End: 05-24-2024 ambulatory PROVIDER NOT SPECIFIED OTHER Facility:A Start: 05-17-2024 End: 05-17-2024 Emergency department patient visit OBED Tobar WINTER [facility] Start: 04-28-2024 End: 04-28-2024 ambulatory PROVIDER NOT SPECIFIED OTHER Facility:A Start: 04-27-2024 End: 04-27-2024 Emergency department patient visit FEDE LORA [facility] Start: 04-25-2024 End: 04-25-2024 Emergency department patient visit [facility] Start: 04-22-2024 End: 04-23-2024 Emergency department patient visit GONZALEZ GUDINO [facility] Start: 04-14-2024 End: 04-14-2024 ambulatory DAVID SMITH MD Facility:A Start: 04-14-2024 End: 04-14-2024 SAME DAY STAY OLE PACE MD [employer] [facility] Start: 03-04-2024 End: 03-04-2024 Patient encounter procedure OLE PACE MD [employer] [facility] Start: 03-03-2024 End: 03-04-2024 ambulatory PROVIDER NOT SPECIFIED OTHER Facility:A Start: 03-03-2024 End: 03-03-2024 SAME DAY STAY OLE PACE MD [employer] [facility] Start: 02-04-2024 End: 02-04-2024 ambulatory NONE PHYSICIAN Facility:A Start: 01-21-2024 End: 01-21-2024 ambulatory HILDA HADDAD MD Facility:A Start: 01-21-2024 End: 01-21-2024 SAME DAY STAY OLE PACE MD [employer] Start: 01-13-2024 ambulatory NONE PHYSICIAN Facility :A Start: 01-06-2024 End: 01-06-2024 ambulatory NONE PHYSICIAN Facility:A Start: 01-06-2024 End: 01-06-2024 Patient encounter procedure OLE PACE MD [employer] Start: 12-17-2023 ambulatory NONE PHYSICIAN Facility :A Start: 12-08-2023 End: 12-08-2023 ambulatory NONE PHYSICIAN Facility:A Start: 12-08-2023 End: 12-08-2023 Patient encounter procedure OLE PACE MD [employer] Start: 12-08-2023 End: 12-08-2023 ambulatory NONE PHYSICIAN Facility:A Start: 12-03-2023 End: 12-03-2023 ambulatory RITA YEH MD Facility:A Start: 12-03-2023 End: 12-03-2023 SAME DAY STAY 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 [employer] Start: 11-19-2023 End: 11-19-2023 ambulatory NONE PHYSICIAN Facility:A Start: 11-19-2023 End: 11-19-2023 Patient encounter procedure OLE PACE MD [employer] Start: 10-22-2023 End: 10-22-2023 ambulatory VIRAL MASON MD, Ph.D Facility:A Start: 10-22-2023 End: 10-22-2023 SAME DAY STAY 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 [employer] Start: 09-12-2023 End: 09-12-2023 ambulatory FLIP MARTIN MD Facility:A Start: 09-12-2023 End: 09-12-2023 Patient encounter procedure OLE PACE MD [facility] Start: 08-28-2023 End: 08-28-2023 ambulatory FLIP MARTIN MD Facility:A Start: 08-25-2023 ambulatory FLIP MARTIN MD Facili ty:A Start: 08-21-2023 End: 08-21-2023 ambulatory FLIP MARTIN MD Facility:A Start: 08-21-2023 End: 08-21-2023 Patient encounter procedure OLE PACE MD [facility] Start: 07-30-2023 End: 08-03-2023 ambulatory FLIP MARTIN MD Facility:A Start: 07-30-2023 End: 07-30-2023 ambulatory FLIP MARTIN MD Facility:A Start: 07-30-2023 End: 07-30-2023 Patient encounter procedure FLIP MARTIN MD [facility] Start: 07-24-2023 End: 07-24-2023 ambulatory MARIN COTE MD Facility:A Start: 07-24-2023 End: 07-24-2023 SAME DAY STAY FLIP MARTIN MD [facility] Start: 07-18-2023 ambulatory FLIP MARTIN MD Facili ty:A Start: 07-08-2023 End: 07-16-2023 Evaluation and management of inpatient FLIP MARTIN MD [facility] Start: 07-08-2023 ambulatory FLIP MARTIN MD Facili ty:A Start: 06-26-2023 End: 06-26-2023 ambulatory FLIP MARTIN MD Facility:A Start: 06-26-2023 End: 06-26-2023 Patient encounter procedure FLIP MARTIN MD [facility] Start: 05-15-2023 End: 05-15-2023 Patient encounter procedure FLIP MARTIN MD [facility] Start: 04-27-2023 End: 05-07-2023 Evaluation and management of inpatient FLIP MARTIN MD [facility] Start: 02-23-2023 End: 03-05-2023 Evaluation and management of inpatient FLIP MARTIN MD [facility] Start: 02-17-2023 End: 02-17-2023 Patient encounter procedure BRITTNI LU APRN-HAZARDOUS WASTE REMOVER [facility] Start: 01-01-2023 End: 01-06-2023 Evaluation and management of inpatient FLIP MARTIN MD [facility] Start: 01-01-2023 End: 01-01-2023 Patient encounter procedure FLIP MARTIN MD [facility] Start: 01-01-2023 End: 01-01-2023 Patient encounter procedure FLIP MARTIN MD [facility] Start: 11-15-2022 End: 11-15-2022 Patient encounter procedure 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 [facility] Start: 09-30-2022 End: 10-08-2022 Evaluation and management of inpatient FLIP MARTIN MD [facility] Start: 09-27-2022 End: 09-27-2022 Emergency department patient visit GUCCI ALEXANDRE MD [facility] Start: 08-08-2022 End: 08-16-2022 Evaluation and management of inpatient FLIP MARTIN MD [facility] Start: 08-08-2022 End: 08-08-2022 Patient encounter procedure 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 [facility] Start: 07-04-2022 End: 07-04-2022 Patient encounter procedure 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 [facility] Start: 04-14-2022 End: 04-19-2022 Evaluation and management of inpatient FLIP MARTIN MD [facility] Start: 04-11-2022 End: 04-11-2022 Patient encounter procedure 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 [facility] Start: 03-26-2022 End: 03-26-2022 Patient encounter procedure ERI PATRICK LITIGATION ATTORNEY ASSOCIATE-HAZARDOUS WASTE REMOVER [facility] Start: 02-21-2022 End: 02-21-2022 Patient encounter procedure FLIP MARTIN MD [facility] Start: 12-21-2021 End: 12-21-2021 Patient encounter procedure FLIP MARTIN MD [facility] Start: 08-23-2021 End: 10-21-2021 Patient encounter procedure FLIP MARTIN MD [facility] Start: 07-11-2021 End: 07-14-2021 Evaluation and management of inpatient Shira Zelaya [id number] Procedures Date Procedure Procedure Detail Performing Clinician Start: 04-03-2025 Urinalysis GONZALEZ Jiménez Comment on above: Result Comment: URIN ALYSIS Performed By: #### [id number] ####[facility],[address] [place] [address] Start: 04-01-2025 Urinalysis GONZALEZ Jiménez Comment on above: Result Comment: URIN ALYSIS Performed By: #### 2 [id number] ####[place] [id number] Start: 03-23-2025 Urinalysis GONZALEZ Jiménez Comment on above: Result Comment: URIN ALYSIS Performed By: #### 2 [id number] ####[place] [id number] Start: 03-05-2025 Urinalysis GONZALEZ Jiménez Comment on above: Result Comment: URIN ALYSIS Performed By: #### 2 [id number] ####[facility],[address] [place] [address] Start: 02-16-2025 Exchange nephrostomy catheter prq w/img gid rs&i GONZALEZ CARMONA MD Start: 02-10-2025 Urinalysis GONZALEZ Jiménez Comment on above: Result Comment: URIN ALYSIS Performed By: #### 2 [id number] ####[place] [id number] Start: 02-10-2025 Urinalysis GONZALEZ Jiménez Comment on above: Result Comment: URIN ALYSIS Performed By: #### 2 [id number] ####[place] [id number] Start: 01-29-2025 Urinalysis GONZALEZ Jiménez Comment on above: Result Comment: URIN ALYSIS Performed By: #### 2 [id number] ####[facility],[address] [place] [address] Start: 12-22-2024 Exchange nephrostomy catheter prq w/img gid rs&i GONZALEZ CARMONA MD Start: 12-22-2024 Removal of implantab le venous access port GONZALEZ CARMONA MD Start: 12-10-2024 Urinalysis GONZALEZ Jiménez Comment on above: Result Comment: URIN ALYSIS Performed By: #### 2 [id number] ####[facility],[address] [place] [address] Start: 11-06-2024 End: 11-06-2024 Urinalysis GONZALEZ CARTER Comment on above: Result Comment: URIN ALYSIS Performed By: #### 2 [id number] ####[facility],[address] [place] [address] Start: 10-13-2024 Exchange nephrostomy catheter prq w/img gid rs&i GONZALEZ CARMONA MD Start: 07-10-2024 Urinalysis GONZALEZ Jiménez Comment on above: Result Comment: URIN ALYSIS Performed By: #### 2 [id number] ####[facility],[address] [place] [address] Start: 06-16-2024 JJ-stent (physical object) NASRIN ISABEL MD Comment on above: left Start: 06-16-2024 Nephrostomy using fluoroscopic guidance NASRIN ISABEL MD Comment on above: left Start: 05-25-2024 Urinalysis GONZALEZ Jiménez Comment on above: Result Comment: URIN ALYSIS Performed By: #### 2 [id number] ####[facility],[address] [place] [address] Start: 05-17-2024 Urinalysis GONZALEZ Jiménez Comment on above: Result Comment: URIN ALYSIS Performed By: #### 2 [id number] ####[facility],[address] [place] [address] Start: 04-25-2024 Urinalysis GONZALEZ Jiménez Comment on above: Result Comment: URIN ALYSIS Performed By: #### 2 [id number] ####[facility],[address] [place] [address] Start: 04-23-2024 Urinalysis GONZALEZ Jiménez Comment on above: Result Comment: URIN ALYSIS Performed By: #### 2 [id number] ####[facility],[address] [place] [address] Start: 10-05-2023 Nephrostomy tube (physical object) OLE PACE MD Comment on above: left side Start: 07-04-2023 Nephrostomy with tub e drainage FLIP MARTIN MD Comment on above: left Start: 08-09-2021 Follow-up visit Start: 01-10-2021 Nephrostomy with tub e drainage FLIP MARTIN MD Start: 11-15-2020 JJ-stent (physical object) FLIP MARTIN MD Start: 11-03-2020 Cannulation of subcutaneous reservoir FLIP MARTIN MD Comment on above: right Start: 06-03-2020 Radiation (physical force) FLIP MARTIN MD Comment on above: via tandems and ovio d X2 Start: 04-03-2020 Implantable venous access port (physical object) GONZALEZ CARMONA MD Start: 11-03-2019 Cervical biopsy FLIP MARTIN MD Comment on above: pt states she had a cervical biopsy done on 04/07/2020 at [facility] for a cervical mass Start: 11-03-2001 Tumor cells, benign (morphologic abnormality) FLIP MARTIN MD Comment on above: 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 done at [facility] in [place] Cannulation of subcutaneous reservoir FLIP MARTIN MD Comment on above: right History of radiation therapy History of radiation therapy( Confirmed ) FLIP MARTIN MD Nephrostomy with tub e drainage FLIP MARTIN MD Comment on above: left Plan of Treatment Date Care Activity Detail Author Start: 08-09-2021 Patient encounter procedure [facility] [place] Start: 07-14-2021 End: 07-15-2022 Pneumococcal 13-Valent (PREVNAR 13) Vaccine 0.5 mL IntraMuscular Once ; DOSE = 0.5 mL IntraMuscular Once Start: 14-Jul-2021 End: 14-Jul-2022 Ordered: 13-Jul-2021 Alycia Pritchett Intent [facility] 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 [facility] Immunizations Immunization Date Immunization Notes Care Provider Anaya coburn 06-16-2001 hepatitis B pediatri c vaccine 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 [facility] 06-16-2001 measles/mumps/rubell a virus vaccine 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 [facility] 06-21-1998 hepatitis B pediatri c vaccine 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 [facility] 04-06-1990 measles/mumps/rubell a virus vaccine 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 [facility] Payers Date Payer Category Payer Medicare [id number] 2024 Self-pay 2024 Medicare [id number] 2023 Private Health Insurance [id number] 2022 Medicaid [id number] 2022 Private Health Insurance [id number] 1988 Unknown [id number] 2.16840.1.156268.3.579.2. 1988 Unknown [id number] 2.16840.1.813607.3.579.2. 1988 Unknown [id number] 2.840.1.309509.3.579.2. 1988 Unknown [id number] 2.840.1.665136.3.579.2. 1988 Unknown [id number] 2.840.1.930368.3.579.2 1988 Unknown [id number] 2.840.1.694983.3.579.2 1988 Unknown [id number] 2..1.700740.3.579.2 1988 Unknown [id number] 2.840.1.897792.3.579.2. 1988 Unknown [id number] 2.840.1.531791.3.579.2. 1988 Unknown [id number] 2.840.1.570033.3.579.2. 1988 Unknown [id number] .1.973701.3.579.2. 1988 Unknown [id number] 2.840.1.207932.3.579.2. 1988 Unknown [id number] 2.840.1.734813.3.579.2. 1988 Unknown [id number] 2.840.1.734770.3.579.2. 1988 Unknown [id number] 2.840.1.330533.3.579.2 1988 Unknown [id number] 2.16840.1.796263.3.579.2. 627 1988 Unknown [id number] 2.16840.1.641161.3.579.2. 1988 Unknown [id number] 2.16840.1.652351.3.579.2. 1988 Unknown [id number] 2.16840.1.620391.3.579.2. 1988 Unknown [id number] 2.16840.1.315951.3.579.2. 1988 Unknown [id number] 2.840.1.863909.3.579.2. 1988 Unknown [id number] 2.840.1.580562.3.579.2. 1988 Unknown [id number] 2.840.1.990630.3.579.2. 1988 Unknown [id number] 2.840.1.139831.3.579.2. 1988 Unknown [id number] 2.840.1.149629.3.579.2. 1988 Unknown [id number] 2.16840.1.143655.3.579.2. 1988 Unknown [id number] 2.840.1.667985.3.579.2. 1988 Unknown [id number] 2.840.1.684483.3.579.2. 1988 Unknown [id number] 2.16840.1.517678.3.579.2. 1988 Unknown [id number] 2.16840.1.493972.3.579.2. 1988 Unknown [id number] 2.16840.1.077410.3.579.2 1988 Unknown [id number] 2.16840.1.477440.3.579.2 1988 Unknown [id number] 2.16840.1.479282.3.579.2 1988 Unknown [id number] 2.16840.1.758665.3.579.2 1988 Unknown [id number] 2.16840.1.778348.3.579.2 1988 Unknown [id number] 2.16840.1.394769.3.579.2 1988 Unknown [id number] 2.16840.1.909930.3.579.2 1988 Unknown [id number] 2.840.1.602993.3.579.2 1988 Unknown [id number] 2.840.1.153253.3.579.2 1988 Unknown [id number] 2.840.1.761339.3.579.2 1988 Unknown [id number] 2.840.1.609066.3.579.2 1988 Unknown [id number] 2840.1.551783.3.579.2 1988 Unknown [id number] 2.16840.1.302121.3.579.2 1988 Unknown [id number] 2.16840.1.448140.3.579.2 1988 Unknown [id number] .16840.1.136529.3.579.2 1988 Unknown [id number] 2.16840.1.325646.3.579.2 1988 Unknown [id number] 2.16840.1.434498.3.579.2. 627 1988 Unknown [id number] 2.16840.1.428558.3.579.2. 627 1988 Unknown [id number] 2.16840.1.308836.3.579.2. 627 1988 Unknown [id number] 2.840.1.331591.3.579.2. 62 1988 Unknown [id number] 2.16840.1.350178.3.579.2. 62 1988 Unknown [id number] 2.840.1.371132.3.579.2. 62 1988 Unknown [id number] 2.840.1.359231.3.579.2 62 1988 Unknown [id number] 12.19.830.1.712913.3.579.2. 62 1988 Unknown [id number] 2.840.1.279256.3.579.2. 627 1988 Unknown [id number] 284.1.160218.3.579.2. 62 1988 Unknown [id number] 2.840.1.413839.3.579.2. 65 1988 Unknown [id number] 2840.1.498958.3.579.2. 65 1988 Unknown [id number] 2.840.1.275329.3.579.2. 65 1988 Unknown [id number] 2.840.1.097228.3.579.2. 65 1988 Unknown [id number] 2.16840.1.899549.3.579.2. 65 1988 Unknown [id number] 2840.1.827645.3.579.2. 651 1988 Unknown [id number] 2.16.840.1.167577.3.579.2. 651 1988 Unknown [id number] 2.16.840.1.978855.3.579.2. 651 1988 Unknown [id number] 2.16.840.1.569227.3.579.2. 651 1988 Unknown [id number] 2.16.840.1.627230.3.579.2. 651 1988 Unknown [id number] 2.16.840.1.802386.3.579.2. 651 1988 Unknown [id number] 2.16840.1.588976.3.579.2. 65 1988 Unknown [id number] 2.16840.1.389768.3.579.2. 651 1988 Unknown [id number] 2.16840.1.139861.3.579.2. 651 1988 Unknown [id number] 2.16840.1.225480.3.579.2. 651 1988 Unknown [id number] 2.16840.1.965155.3.579.2. 651 1988 Unknown [id number] 2.16840.1.606777.3.579.2. 651 1988 Unknown [id number] 2.16840.1.983151.3.579.2. 651 1988 Unknown [id number] 2.16840.1.188822.3.579.2. 651 1988 Unknown [id number] 2.16840.1.510522.3.579.2. 651 1988 Unknown [id number] 2.16840.1.601001.3.579.2. 651 1988 Unknown [id number] 2.16840.1.535484.3.579.2. 63 Unknown [address] [address] [employer] [address]\[employer] PLAN Medicare [id number] Social History Date Type Detail Facility [facility] Tobacco smoking consumption unknown [facility] Start: 04-12-2020 End: 02-16-2025 Light tobacco smoker (finding) [facility] Comment on above: current vaping Sex Assigned At Female [facility] Start: 07-09-2023 End: 12-16-2024 Tobacco smoking status Ex-smoker (finding) [facility] Comment on above: current vaping Tobacco smoking status Never [facility] Comment on above: current vaping Sexual Orientation [facility] Start: 04-10-2020 Sex Female (finding) [facility] Medical Equipment Procedure Code Equipment Code Equipment Origin al Text Equipment Identifier Dates FDA Start: 06-26-2020 FDA Start: 06-26-2020 FDA Start: 06-26-2020 Cervix Insert Tandem/Ovoids in Radiation Unknown 06/26/20 Unknown Unknown FDA Start: 06-26-2020 Cervix Insert Tandem/Ovoids in Radiation Unknown 06/26/20 Unknown Unknown FDA Start: 06-26-2020 Cervix Insert Tandem/Ovoids in Radiation Unknown 06/26/20 Unknown Unknown FDA Start: 06-26-2020 Cervix Insert Tandem/Ovoids in Radiation Unknown 06/26/20 Unknown Unknown FDA Start: 06-26-2020 Cervix Insert Tandem/Ovoids in Radiation Unknown 06/26/20 Unknown Unknown FDA Start: 06-26-2020 Cervix Insert Tandem/Ovoids in Radiation Unknown 06/26/20 Unknown Unknown FDA Start: 06-26-2020 Cervix Insert Tandem/Ovoids in Radiation Unknown 06/26/20 Unknown Unknown FDA Start: 06-26-2020 Cervix Insert Tandem/Ovoids in Radiation Unknown 06/26/20 Unknown Unknown FDA Start: 06-26-2020 Cervix Insert Tandem/Ovoids in Radiation Unknown 06/26/20 Unknown Unknown FDA Start: 06-26-2020 Cervix Insert Tandem/Ovoids in Radiation Unknown 06/26/20 Unknown Unknown FDA Start: 06-26-2020 Cervix Insert Tandem/Ovoids in Radiation Unknown 06/26/20 Unknown Unknown FDA Start: 06-26-2020 Cervix Insert Tandem/Ovoids in Radiation Unknown 06/26/20 Unknown Unknown FDA Start: 06-26-2020 Cervix Insert Tandem/Ovoids in Radiation Unknown 06/26/20 Unknown Unknown FDA Start: 06-26-2020 Cervix Insert Tandem/Ovoids in Radiation Unknown 06/26/20 Unknown Unknown FDA Start: 06-26-2020 Cervix Insert Tandem/Ovoids in Radiation Unknown 06/26/20 Unknown Unknown FDA Start: 06-26-2020 Cervix Insert Tandem/Ovoids in Radiation Unknown 06/26/20 Unknown Unknown FDA Start: 06-26-2020 Cervix Insert Tandem/Ovoids in Radiation Unknown 06/26/20 Unknown Unknown FDA Start: 06-26-2020 Cervix Insert Tandem/Ovoids in Radiation Unknown 06/26/20 Unknown Unknown FDA Start: 06-26-2020 Cervix Insert Tandem/Ovoids in Radiation Unknown 06/26/20 Unknown Unknown FDA Start: 06-26-2020 Cervix Insert Tandem/Ovoids in Radiation Unknown 06/26/20 Unknown Unknown FDA Start: 06-26-2020 Cervix Insert Tandem/Ovoids in Radiation Unknown 06/26/20 Unknown Unknown FDA Start: 06-26-2020 Cervix Insert Tandem/Ovoids in Radiation Unknown 06/26/20 Unknown Unknown FDA Start: 06-26-2020 Cervix Insert Tandem/Ovoids in Radiation Unknown 06/26/20 Unknown Unknown FDA Start: 06-26-2020 Cervix Insert Tandem/Ovoids in Radiation Unknown 06/26/20 Unknown Unknown FDA Start: 06-26-2020 Cervix Insert Tandem/Ovoids in Radiation Unknown 06/26/20 Unknown Unknown FDA Start: 06-26-2020 Cervix Insert Tandem/Ovoids in Radiation Unknown 06/26/20 Unknown Unknown FDA Start: 06-26-2020 Cervix Insert Tandem/Ovoids in Radiation Unknown 06/26/20 Unknown Unknown FDA Start: 06-26-2020 Cervix Insert Tandem/Ovoids in Radiation Unknown 06/26/20 Unknown Unknown FDA Start: 06-26-2020 Cervix Insert Tandem/Ovoids in Radiation Unknown 06/26/20 Unknown Unknown FDA Start: 06-26-2020 Cervix Insert Tandem/Ovoids in Radiation Unknown 06/26/20 Unknown Unknown FDA Start: 06-26-2020 Cervix Insert Tandem/Ovoids in Radiation Unknown 06/26/20 Unknown Unknown FDA Start: 06-26-2020 Cervix Insert Tandem/Ovoids in Radiation Unknown 06/26/20 Unknown Unknown FDA Start: 06-26-2020 Cervix Insert Tandem/Ovoids in Radiation Unknown 06/26/20 Unknown Unknown FDA Start: 06-26-2020 Cervix Insert Tandem/Ovoids in Radiation Unknown 06/26/20 Unknown Unknown FDA Start: 06-26-2020 Cervix Insert Tandem/Ovoids in Radiation Unknown 06/26/20 Unknown Unknown FDA Start: 06-26-2020 Cervix Insert Tandem/Ovoids in Radiation Unknown 06/26/20 Unknown Unknown FDA Start: 06-26-2020 Cervix Insert Tandem/Ovoids in Radiation Unknown 06/26/20 Unknown Unknown FDA Start: 06-26-2020 Cervix Insert Tandem/Ovoids in Radiation Unknown 06/26/20 Unknown Unknown FDA Start: 06-26-2020 Cervix Insert Tandem/Ovoids in Radiation Unknown 06/26/20 Unknown Unknown FDA Start: 06-26-2020 Cervix Insert Tandem/Ovoids in Radiation Unknown 06/26/20 Unknown Unknown FDA Start: 06-26-2020 Functional Status Date Assessment Result Facility 03-09-2025 Functional Status Independent [facility] 03-09-2025 Functional Status Standard Safet y ID band on, Call device within reach, Bed in low position, Wheels locked, Upper/Half-Length side-rails up, Phone within reach, personal items within reach, Assistive devices within reach, Bedside Cart Locked, Law enforcement present [facility] 02-16-2025 Functional Status Awake, Resting [facility] 02-16-2025 Functional Status Less than 8 hours [facility] 12-22-2024 Functional Status Independent [facility] 12-22-2024 Functional Status Repositions self [facility] 12-22-2024 Functional Status Maintained [facility] 12-16-2024 Functional Status [facility] 08-11-2024 Functional Status Independent [facility] 08-11-2024 Functional Status Repositions self [facility] 08-11-2024 Functional Status Maintained [facility] 08-06-2024 Functional Status Sensory Deficits None [facility] 06-09-2024 Functional Status Awake, Up ad marisa [facility] 06-09-2024 Functional Status [facility] 06-09-2024 Functional Status Maintained [facility] 04-14-2024 Functional Status Awake, Resting [facility] 04-14-2024 Functional Status Sensory Deficits None [facility] 03-03-2024 Functional Status Awake, Resting [facility] 03-03-2024 Functional Status [facility] 03-03-2024 Functional Status [facility] 01-21-2024 Functional Status Awake, Resting [facility] 01-21-2024 Functional Status Independent [facility] 01-21-2024 Functional Status Maintained [facility] 12-03-2023 Functional Status Up ad marisa [facility] 12-03-2023 Functional Status ID band on, Allergy Band on, Call device within reach, Bed in low position, Wheels locked, Upper/Half-Length side-rails up, Phone within reach, personal items within reach, Visitor at bedside, Non-Slip footwear [facility] 12-03-2023 Functional Status Maintained [facility] 10-22-2023 Functional Status Awake [facility] 10-22-2023 Functional Status [facility] 10-22-2023 Functional Status Maintained [facility] 07-24-2023 Functional Status Awake [facility] 07-24-2023 Functional Status [facility] 07-24-2023 Functional Status Maintained [facility] 07-16-2023 Functional Status Room check performed [facility] 07-16-2023 Functional Status [facility] 07-16-2023 Functional Status [facility] 07-15-2023 Functional Status [facility] 07-15-2023 Functional Status [facility] 07-15-2023 Functional Status [facility] 07-15-2023 Functional Status Dinner Percent 75 [facility] 07-15-2023 Functional Status [facility] 07-15-2023 Functional Status [facility] 07-14-2023 Functional Status [facility] 07-14-2023 Functional Status Maintained [facility] 07-14-2023 Functional Status [facility] 07-13-2023 Functional Status [facility] 07-13-2023 Functional Status [facility] 07-13-2023 Functional Status Independent [facility] 07-13-2023 Functional Status [facility] 07-12-2023 Functional Status [facility] 07-11-2023 Functional Status Done [facility] 07-11-2023 Functional Status [facility] 07-10-2023 Functional Status [facility] 07-10-2023 Functional Status [facility] 07-09-2023 Functional Status Beds/Devices H ospital bed, pressure reduction mattress [facility] 07-09-2023 Functional Status Personal ADL [facility] 07-09-2023 Functional Status Sensory Deficits None A [facility] 05-07-2023 Functional Status Room check performed [facility] 05-07-2023 Functional Status [facility] 05-07-2023 Functional Status [facility] 05-07-2023 Functional Status [facility] 05-06-2023 Functional Status [facility] 05-05-2023 Functional Status Lunch Percent 75 [facility] 05-05-2023 Functional Status [facility] 05-04-2023 Functional Status Patient refused [facility] 05-03-2023 Functional Status Hospital bed [facility] 05-02-2023 Functional Status Done [facility] 05-02-2023 Functional Status [facility] 05-01-2023 Functional Status [facility] 04-30-2023 Functional Status Feeding Assistance Inde pendent [facility] 04-29-2023 Functional Status [facility] 04-29-2023 Functional Status NPO Status Maintained A [facility] 04-28-2023 Functional Status Sensory Deficits None A [facility] 03-05-2023 Functional Status 75 [facility] 03-05-2023 Functional Status Not done 1 [facility] 03-05-2023 Functional Status Non-Slip footw ear, Room check performed [facility] 03-04-2023 Functional Status [facility] 03-04-2023 Functional Status [facility] 03-04-2023 Functional Status Independent [facility] 03-02-2023 Functional Status [facility] 03-01-2023 Functional Status [facility] 03-01-2023 Functional Status Repositions self [facility] 03-01-2023 Functional Status [facility] 02-28-2023 Functional Status [facility] 02-28-2023 Functional Status [facility] 02-28-2023 Functional Status SCD Removed/Of f bilateral knee high [facility] 02-28-2023 Functional Status [facility] 02-27-2023 Functional Status [facility] 02-27-2023 Functional Status [facility] 02-27-2023 Functional Status [facility] 02-25-2023 Functional Status [facility] 02-24-2023 Functional Status [facility] 02-24-2023 Functional Status Living Situation Lives alone [facility] 02-24-2023 Functional Status [facility] 02-17-2023 Functional Status Ambulating in avila, Ambulating in room, Up ad marisa, Up to bathroom [facility] 02-17-2023 Functional Status Maintained [facility] 01-06-2023 Functional Status None [facility] 01-06-2023 Functional Status SCD Removed/Of f bilateral knee [facility] 01-06-2023 Functional Status [facility] 01-06-2023 Functional Status [facility] 01-06-2023 Functional Status Yes [facility] 01-06-2023 Functional Status Room check performed [facility] 01-05-2023 Functional Status [facility] 01-04-2023 Functional Status SCD On/Re-appl ied bilateral knee [facility] 01-03-2023 Functional Status Independent [facility] 01-02-2023 Functional Status NPO Status confirmed [facility] 01-02-2023 Functional Status Living Situation Lives alone [facility] 01-01-2023 Functional Status Awake [facility] 01-01-2023 Functional Status [facility] 11-15-2022 Functional Status ID band on, Allergy Band on, Safety level maintained [facility] 11-15-2022 Functional Status NPO Status confirmed [facility] 11-15-2022 Functional Status [facility] 10-08-2022 Functional Status Yes [facility] 10-08-2022 Functional Status [facility] 10-08-2022 Functional Status [facility] 10-08-2022 Functional Status [facility] 10-07-2022 Functional Status [facility] 10-07-2022 Functional Status High Risk Safe ty Room check performed [facility] 10-07-2022 Functional Status [facility] 10-07-2022 Functional Status [facility] 10-06-2022 Functional Status [facility] 10-06-2022 Functional Status [facility] 10-05-2022 Functional Status [facility] 10-05-2022 Functional Status Hospital bed [facility] 10-05-2022 Functional Status Vanessa [facility] 10-03-2022 Functional Status Living Situation Lives alone [facility] 10-03-2022 Functional Status Independent [facility]02[facility]16[facility]22 Functional Status Door open, Room check performed [facility] 08-15-2022 Functional Status Demonstrates C orrect Call Light Use Yes [facility] 08-15-2022 [facility]15[facility] Functional Status [facility] 08-15-2022 Functional Status [facility] 08-14-2022 Functional Status [facility]aintained [facility]13[facility]-12[facility] 08-11-2022 Functional Status Assistive Device None A [facility] 08-10-2022 [facility] Status [facility] 08-10-2022 Functional Status Independent, Setup [facility] 08-09-2022 Functional Status bilateral knee high [facility] 08-09-2022 [facility] 08-08-2022 Functional Status Awake, Remains up in chair, Repositions self, Resting [facility] 08-08-2022 Functional Status [facility] 07-04-2022 Functional Status confirmed [facility] 07-04-2022 Functional Status [facility] 04-19-2022 Functional Status Yes [facility] 04-19-2022 Functional Status Patient refused [facility] 04-19-2022 Functional Status Room check performed [facility] 04-18-2022 Functional Status [facility] 04-18-2022 Functional Status [facility] 04-18-2022 Functional Status [facility] 04-18-2022 Functional Status [facility] 04-18-2022 Functional Status SCD Removed/Of f bilateral knee high [facility] 04-18-2022 Functional Status [facility] 04-17-2022 Functional Status [facility] 04-17-2022 Functional Status [facility] 04-17-2022 Functional Status [facility] 04-16-2022 Functional Status [facility] 04-15-2022 Functional Status [facility] 04-15-2022 Functional Status [facility] 04-15-2022 Functional Status [facility] 04-11-2022 Functional Status confirmed [facility] 04-11-2022 Functional Status Sensory Deficits None A [facility] 03-26-2022 Functional Status ID band on, Allergy Band on [facility] Functional observable [facility] Mental Status Date Assessment Result Facility 03-15-2025 Mental Status Orientation Oriented x 4 [facility] 03-09-2025 Mental Status Orientation Oriented x 4 [facility] 03-09-2025 Mental Status [facility] 02-16-2025 Mental Status Oriented x 4 [facility] 12-22-2024 Mental Status Oriented x 4 [facility] 08-11-2024 Mental Status Oriented x 4 [facility] 08-11-2024 Mental Status [facility] 08-11-2024 Mental Status Orientation Asse ssment Oriented x 4 [facility] 06-09-2024 [facility] Status Orientation Oriented x 4 [facility] 03-03-2024 Mental Status [facility] 03-03-2024 Mental Status [facility] 01-21-2024 Mental Status Orientation Oriented x 4 [facility] 01-21-2024 Mental Status [facility] 01-21-2024 Mental Status [facility] 12-03-2023 Mental Status Orientation Oriented x 4 [facility] 12-03-2023 Mental Status [facility] 12-03-2023 Mental Status [facility] 10-22-2023 Mental Status Oriented x 4 [facility] 07-24-2023 Mental Status Oriented x 4 [facility] 07-16-2023 Mental Status Oriented x 4 [facility] 07-15-2023 Mental Status [facility] 07-15-2023 Mental Status [facility] 07-14-2023 Mental Status [facility] 05-07-2023 Mental Status Orientation Oriented x 4 [facility] 05-06-2023 Mental Status [facility] 05-06-2023 Mental Status [facility] 05-05-2023 Mental Status Orientation Asse ssment Oriented x 4 [facility] 05-05-2023 Mental Status [facility] 05-05-2023 Mental Status [facility] 03-05-2023 [facility] 03-04-2023 Mental Status [facility] 03-03-2023 [facility] Status Orientation Oriented x 4 [facility] 02-17-2023 [facility] Status Orientation Oriented x 4 [facility] 01-05-2023 Mental Status [facility] 01-05-2023 [facility] Status Orientation Asse ssment Oriented x 4 [facility] 01-01-2023 [facility] Status Orientation Oriented x 4 [facility] 11-15-2022 Mental Status [facility]-08[facility] Mental Status Orientation Oriented x 4 [facility] 10-08-2022 [facility]-06[facility] Mental Status Orientation Asse ssment Oriented x 4 [facility] 10-03-2022 [facility] 08-16-2022 Mental Status [facility]08[facility] Mental Status Orientation Oriented x 4 [facility] 07-04-2022 Mental Status [facility]-04[facility] Status [facility] 04-19-2022 Mental Status Orientation Oriented x 4 [facility] 04-18-2022 Mental Status [facility] 04-18-2022 Mental Status [facility] 04-11-2022 Mental Status Oriented x 4 [facility] 04-11-2022 Mental Status [facility] 07-13-2021 Cognitive functi ons [id number] [facility] Clinical Notes 07-02-2021 to 04-05-2025 Note Date & Type Note Facility 04-05-2025 Note . MICRO - Microbiology PROCEDURE: Urine Culture [O1 *1] SOURCE: Urine BODY SITE: COLLECTED DATE/TIME: 04/04/2025 15:53 EDT RECEIVED DATE/TIME: 04/04/2025 17:51 EDT START DATE/TIME: 04/04/2025 17:52 EDT FREE TEXT SOURCE: FINAL REPORTS Final Report [] Verified Date/Time/Personnel: 04/05/2025 14:20 EDT 10,000 - 50,000 cfu/ml Multiple bacterial morphotypes present. Probable Contamination. Suggest recollection if clinically indicated. PRELIMINARY REPORTS Preliminary Report [] Verified Date/Time/Personnel: 04/04/2025 18:59 EDT Specimen received in lab. Order Comments O1: Urine Culture Added by Discern Performing Locations *1: This test was performed at: [facility], [address] [place] [address], [facility] , [facility] 03-15-2025 Hospital Discharg e instructions Patient Education 03/15/2025 18:30:11 Flank Pain, Uncertain Cause Flank Pain, Uncertain Cause The flank is the area between your upper abdomen and your back. Pain there is often caused by a problem with your kidneys. It might be a kidney infection or a kidney stone. Other causes of flank pain include spinal arthritis, a pinched nerve from a back injury, or a back muscle strain or spasm. The cause of your flank pain is not certain. You may need other tests. Home care Follow these tips when caring for yourself at home: You may use acetaminophen or ibuprofen to control pain, unless your health care provider prescribed another medicine. If you have chronic liver or kidney disease, talk with your provider before taking these medicines. Also talk with your provider first if you ve ever had a stomach ulcer or GI bleeding. If the pain is coming from your muscles, you may get relief with ice or heat. During the first 2 days after the injury, put an ice pack on the painful area for 20 minutes every 2 to 4 hours. This will reduce swelling and pain. A hot shower, hot bath, or heating pad works well for a muscle spasm. You can start with ice, then switch to heat after 2 days. You might find that alternating ice and heat works well. Use the method that feels the best to you. Follow-up care Follow up with your healthcare provider if your symptoms don t get better over the next few days. When to seek medical advice Call your healthcare provider right away if any of these happen: Repeated vomiting Fever of 100.4 F (38 C) or higher, or as directed by your health care provider Flank pain that gets worse Pain that spreads to the front of your belly (abdomen) Dizziness, weakness, or fainting Blood in your urine Burning feeling when you urinate or the need to urinate often Pain in one of your legs that gets worse Numbness or weakness in a leg [id number] [employer]. [address] [place] [address]. All rights reserved. This information is not intended as a substitute for professional medical care. Always follow your healthcare professional's instructions. Follow Up Care 03/15/2025 14:38:03 With:OLE PACE MD Address: [address] [place] [phone] When:2-4 days [facility] 03-15-2025 Emergency department Discharge summary Discharge Instructions Thank you for allowing [facility] to assist you with your healthcare needs. The following is important discharge information regarding your hospital visit. What to Do Next Instructions from Your Care Team No qualifying data available. Post Acute Orders No qualifying data available. You Need to Schedule the Following Appointments Follow Up with OLE PACE MD When:Within 2-4 days Where:[address] [place] [phone] Allergies Haldol Tongue swelling Oranges Tongue swelling, Difficulty breathing penicillin Hives Medications Please ask your primary doctor or pharmacist before taking any other medication not listed, including over the counter drugs, herbal medications, vitamins and or supplements as they may interact with your home medications. What How Much When Why Instructions Last Dose Unchanged acetaminophen (Tylenol Extra Strength 500 mg oral tablet) 2 tab(s) by mouth Every 4 hours as needed for as needed for pain Unchanged albuterol (albuterol MDI (90 mcg/ inh) CFC free inhalation aerosol) 2 puff(s) by inhalation Every 6 hours as needed for as needed for wheezing Unchanged escitalopram (Lexapro 20 mg oral tablet) 1 tab(s) by mouth Once a day Unchanged ibuprofen (Motrin IB 200 mg oral tablet) 2 tab(s) by mouth Every 4 hours as needed for as needed for pain Unchanged LORazepam (Ativan 1 mg oral tablet) 1 tab(s) by mouth Three (3) times a day as needed for as needed for anxiety Palliative care patient THO (generalized anxiety disorder) Unchanged ondansetron (ondansetron 4 mg oral tablet) 1 tab(s) by mouth Two (2) times a day TAKE ONE TABLET BY MOUTH EVERY 8 HOURS NEEDED FOR NAUSEA AND VOMITING Unchanged oxyCODONE (oxyCODONE 5 mg oral tablet ( IMMEDIATE release )) 2 tab(s) by mouth Every 6 hours as needed for for pain Cervical ca Cancer related pain may dispense Unchanged sulfamethoxazole-trimethoprim (Bactrim DS 800 mg-160 mg oral tablet) 1 tab(s) by mouth Two (2) times a day Kidney stone Left flank pain Hydronephrosis, left Duration: 30 Days Please take this list to your next doctor s visit. Bring all medications you take, including over the counter medications, herbals and other supplements with you to your doctor s visit. Patients and families are reminded to discard old lists and to update any records with all medication providers or retail pharmacies. Education Materials Flank Pain, Uncertain Cause The flank is the area between your upper abdomen and your back. Pain there is often caused by a problem with your kidneys. It might be a kidney infection or a kidney stone. Other causes of flank pain include spinal arthritis, a pinched nerve from a back injury, or a back muscle strain or spasm. The cause of your flank pain is not certain. You may need other tests. Home care Follow these tips when caring for yourself at home: You may use acetaminophen or ibuprofen to control pain, unless your health care provider prescribed another medicine. If you have chronic liver or kidney disease, talk with your provider before taking these medicines. Also talk with your provider first if you ve ever had a stomach ulcer or GI bleeding. If the pain is coming from your muscles, you may get relief with ice or heat. During the first 2 days after the injury, put an ice pack on the painful area for 20 minutes every 2 to 4 hours. This will reduce swelling and pain. A hot shower, hot bath, or heating pad works well for a muscle spasm. You can start with ice, then switch to heat after 2 days. You might find that alternating ice and heat works well. Use the method that feels the best to you. Follow-up care Follow up with your healthcare provider if your symptoms don t get better over the next few days. When to seek medical advice Call your healthcare provider right away if any of these happen: Repeated vomiting Fever of 100.4 F (38 C) or higher, or as directed by your health care provider Flank pain that gets worse Pain that spreads to the front of your belly (abdomen) Dizziness, weakness, or fainting Blood in your urine Burning feeling when you urinate or the need to urinate often Pain in one of your legs that gets worse Numbness or weakness in a leg [id number] [employer]. [address] [place] [address]. All rights reserved. This information is not intended as a substitute for professional medical care. Always follow your healthcare professional's instructions. Additional Information VACCINATE! IT SAVES LIVES! Members of the community who have not yet received the COVID-19 vaccine and would like to receive it can visit one of [facility] vaccine clinics. There are many vaccine clinic locations within the [facility]. For locations and available times, please visit [email or web address] It is important to note that some COVID mobile vaccine clinics are held outdoors and may be canceled in rainy or stormy conditions. To learn more about pediatric vaccinations (ages 5-11), we invite you to visit the [facility] webpage. [email or web address] To learn more about the COVID-19 vaccine, we invite you to visit the CDC website for a list of frequently asked questions. https://www.cdc.gov/coronavirus/ 2019-ncov/vaccines/faq.html [facility] Patient Portal Access Instructions: Stay connected with your healthcare team and access your personal medical information anytime with the [facility] Patient Portal. If you would like a full copy of your medical records please contact the [facility] Medical Records Department Friday through Friday between 8a.m. and 4:30p.m. Please follow the directions below to access the portal: 1.Access the email account you provided upon [facility] to the [facility].2.Look for an invitation email from [facility].3.Open the email and access the invitation link: Accept Invitation to [facility] [employer]4.Fill in the required quintero to create your account. Sign into [email or web address] with your username and password that you created in the above steps to stay up to date. You can then view a summary of results, a summary of your visits, and the ability to download your summaries to your computer or send the information securely to a physician. Remember that your healthcare information is confidential, so carefully consider who you will allow to register on the [facility] Patient Portal for access to your information. You can also access the [facility] Patient Portal on the [employer]. Simply click on Health Records under Health Data and then click on the [employer] logo. HOW TO SAFELY DISPOSE OF PRESCRIPTION MEDICATIONS Please use one of the following methods to safely dispose of your unused medications. 1.Use a drug disposal kit: the drug disposal pouch allows you to safely discard your old and unused drugs. Ask your nurse to give you one when you are discharged.2.Visit a local take-back location: Many local pharmacies and police departments have programs that collect old and unwanted prescription drugs. Call your local pharmacy or go to http://bit.ConsumerBell/3B3Us7p to find one close to you.3.Make use of household items: Use cat litter or old coffee grounds to dispose medications if other options are not available. Mix your drugs with these household products, seal them in an airtight container and throw it into the garbage. Call [facility]: [phone] to be sure your drugs can be disposed of in this way. Some medicines may require a different approach.4.Never flush your medications down the toilet. IF YOU HAVE BEEN PRESCRIBED AN OPIOIDS FOR PAIN If you have been prescribed an opioid (such as hydrocodone, oxycodone or morphine), it is critical to understand the possible side effects and risks of opioid pain medications. Even when taken as directed, opioids can have several side effects including: Tolerance, meaning you might need to take more of a medication for the same pain relief. Nausea, vomiting and/or constipation. Sleepiness, dizziness, dry mouth, confusion, depression or itching. Physical dependence, meaning you have withdrawal symptoms when a medication is stopped ? this can develop within a few days. KNOW YOUR RESPONSIBILITIES It is important to know exactly how much and how often to take the opioid pain medications you are prescribed. Never take opioids in higher amounts or more often than prescribed. Do not combine opioids with alcohol or other drugs that cause drowsiness, such as benzodiazepines, also known as benzos, including diazepam and alprazolam, muscle relaxants or sleep aids. Never sell or share prescription opioids. This is illegal. Store opioids in a secure place and out of reach of others (including children, family, friends and visitors). The last page(s) of this document has been signed and retained as a CHART COPY Signatures Patient Education Materials Flank Pain, Uncertain Cause Medication Leaflets My discharge plan and instructions have been reviewed and explained to me and I,LALY NAVAS understand my current condition and have read and understand these discharge instructions. I have received a written copy of the plan/instructions. If I have questions, I am aware that I should contact my doctor. 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 The following is important discharge information regarding your hospital visit. What to Do Next Instructions from Your Care Team No qualifying data available. Post Acute Orders No qualifying data available. You Need to Schedule the Following Appointments Follow Up with OLE PACE MD When:Within 2-4 days Where:[address] [facility] [place] [address]- [phone] Allergies Haldol Tongue swelling Oranges Tongue swelling, Difficulty breathing penicillin Hives Medications Please ask your primary doctor or pharmacist before taking any other medication not listed, including over the counter drugs, herbal medications, vitamins and or supplements as they may interact with your home medications. What How Much When Why Instructions Last Dose Unchanged acetaminophen (Tylenol Extra Strength 500 mg oral tablet) 2 tab(s) by mouth Every 4 hours as needed for as needed for pain Unchanged albuterol (albuterol MDI (90 mcg/ inh) CFC free inhalation aerosol) 2 puff(s) by inhalation Every 6 hours as needed for as needed for wheezing Unchanged escitalopram (Lexapro 20 mg oral tablet) 1 tab(s) by mouth Once a day Unchanged ibuprofen (Motrin IB 200 mg oral tablet) 2 tab(s) by mouth Every 4 hours as needed for as needed for pain Unchanged LORazepam (Ativan 1 mg oral tablet) 1 tab(s) by mouth Three (3) times a day as needed for as needed for anxiety Palliative care patient THO (generalized anxiety disorder) Unchanged ondansetron (ondansetron 4 mg oral tablet) 1 tab(s) by mouth Two (2) times a day TAKE ONE TABLET BY MOUTH EVERY 8 HOURS NEEDED FOR NAUSEA AND VOMITING Unchanged oxyCODONE (oxyCODONE 5 mg oral tablet ( IMMEDIATE release )) 2 tab(s) by mouth Every 6 hours as needed for for pain Cervical ca Cancer related pain may dispense Unchanged sulfamethoxazole-trimethoprim (Bactrim DS 800 mg-160 mg oral tablet) 1 tab(s) by mouth Two (2) times a day Kidney stone Left flank pain Hydronephrosis, left Duration: 30 Days Please take this list to your next doctor s visit. Bring all medications you take, including over the counter medications, herbals and other supplements with you to your doctor s visit. Patients and families are reminded to discard old lists and to update any records with all medication providers or retail pharmacies. Education Materials Flank Pain, Uncertain Cause The flank is the area between your upper abdomen and your back. Pain there is often caused by a problem with your kidneys. It might be a kidney infection or a kidney stone. Other causes of flank pain include spinal arthritis, a pinched nerve from a back injury, or a back muscle strain or spasm. The cause of your flank pain is not certain. You may need other tests. Home care Follow these tips when caring for yourself at home: You may use acetaminophen or ibuprofen to control pain, unless your health care provider prescribed another medicine. If you have chronic liver or kidney disease, talk with your provider before taking these medicines. Also talk with your provider first if you ve ever had a stomach ulcer or GI bleeding. If the pain is coming from your muscles, you may get relief with ice or heat. During the first 2 days after the injury, put an ice pack on the painful area for 20 minutes every 2 to 4 hours. This will reduce swelling and pain. A hot shower, hot bath, or heating pad works well for a muscle spasm. You can start with ice, then switch to heat after 2 days. You might find that alternating ice and heat works well. Use the method that feels the best to you. Follow-up care Follow up with your healthcare provider if your symptoms don t get better over the next few days. When to seek medical advice Call your healthcare provider right away if any of these happen: Repeated vomiting Fever of 100.4 F (38 C) or higher, or as directed by your health care provider Flank pain that gets worse Pain that spreads to the front of your belly (abdomen) Dizziness, weakness, or fainting Blood in your urine Burning feeling when you urinate or the need to urinate often Pain in one of your legs that gets worse Numbness or weakness in a leg [id number] [employer]. [address] [place] [address]. All rights reserved. This information is not intended as a substitute for professional medical care. Always follow your healthcare professional's instructions. Additional Information VACCINATE! IT SAVES LIVES! Members of the community who have not yet received the COVID-19 vaccine and would like to receive it can visit one of [facility] vaccine clinics. There are many vaccine clinic locations within the [facility]. For locations and available times, please visit [email or web address] [email or web address] It is important to note that some COVID mobile vaccine clinics are held outdoors and may be canceled in rainy or stormy conditions. To learn more about pediatric vaccinations (ages 5-11), we invite you to visit the [facility] webpage. https://www.[facility].org/p ages/1169-Yqthj-Gayfiyykuej-Freq xtofrg-Xvzqa-Mqamfgwan.html To learn more about the COVID-19 vaccine, we invite you to visit the CDC website for a list of frequently asked questions. https://www.cdc.gov/coronavirus/ 2019-ncov/vaccines/faq.html [facility] Patient Portal Access Instructions: Stay connected with your healthcare team and access your personal medical information anytime with the [facility] Patient Portal. If you would like a full copy of your medical records please contact the [facility] Medical Records Department Friday through Friday between 8a.m. and 4:30p.m. Please follow the directions below to access the portal: 1.Access the email account you provided upon [facility].2.Look for an invitation email from [facility].3.Open the email and access the invitation link: Accept Invitation to [facility]4.Fill in the required quintero to create your account. Sign into [email or web address] with your username and password that you created in the above steps to stay up to date. You can then view a summary of results, a summary of your visits, and the ability to download your summaries to your computer or send the information securely to a physician. Remember that your healthcare information is confidential, so carefully consider who you will allow to register on the [facility] Patient Portal for access to your information. You can also access the [facility] Patient Portal on the [employer]. Simply click on Health Records under Health Data and then click on the [employer] logo. HOW TO SAFELY DISPOSE OF PRESCRIPTION MEDICATIONS Please use one of the following methods to safely dispose of your unused medications. 1.Use a drug disposal kit: the drug disposal pouch allows you to safely discard your old and unused drugs. Ask your nurse to give you one when you are discharged.2.Visit a local take-back location: Many local pharmacies and police departments have programs that collect old and unwanted prescription drugs. Call your local pharmacy or go to http://bit.ConsumerBell/6V1Oo8h to find one close to you.3.Make use of household items: Use cat litter or old coffee grounds to dispose medications if other options are not available. Mix your drugs with these household products, seal them in an airtight container and throw it into the garbage. Call [facility]: [phone] to be sure your drugs can be disposed of in this way. Some medicines may require a different approach.4.Never flush your medications down the toilet. IF YOU HAVE BEEN PRESCRIBED AN OPIOIDS FOR PAIN If you have been prescribed an opioid (such as hydrocodone, oxycodone or morphine), it is critical to understand the possible side effects and risks of opioid pain medications. Even when taken as directed, opioids can have several side effects including: Tolerance, meaning you might need to take more of a medication for the same pain relief. Nausea, vomiting and/or constipation. Sleepiness, dizziness, dry mouth, confusion, depression or itching. Physical dependence, meaning you have withdrawal symptoms when a medication is stopped ? this can develop within a few days. KNOW YOUR RESPONSIBILITIES It is important to know exactly how much and how often to take the opioid pain medications you are prescribed. Never take opioids in higher amounts or more often than prescribed. Do not combine opioids with alcohol or other drugs that cause drowsiness, such as benzodiazepines, also known as benzos, including diazepam and alprazolam, muscle relaxants or sleep aids. Never sell or share prescription opioids. This is illegal. Store opioids in a secure place and out of reach of others (including children, family, friends and visitors). The last page(s) of this document has been signed and retained as a CHART COPY Signatures Patient Education Materials Flank Pain, Uncertain Cause Medication Leaflets My discharge plan and instructions have been reviewed and explained to me and I,LALY NAVAS understand my current condition and have read and understand these discharge instructions. I have received a written copy of the plan/instructions. If I have questions, I am aware that I should contact my doctor. 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 Signature: Date/Time: Relationship to Patient: Witness Name/Signature: Date/Time: [facility] 03-15-2025 Note Exam Date Time Procedure Performing Provider Status 03/15/25 5:[address] Abd/Pelvis w/ IV Contrast Only CESAR FIERRO DO; Auth (Verified) [id number] ORIGINAL EXAMINATION: CT OF THE ABDOMEN AND PELVIS WITH CONTRAST 03/15/2025 5:56 pm TECHNIQUE: CT of the abdomen and pelvis was performed with the administration of intravenous contrast. Multiplanar reformatted images are provided for review. Automated exposure control, iterative reconstruction, and/or weight based adjustment of the mA/kV was utilized to reduce the radiation dose to as low as reasonably achievable. COMPARISON: CT abdomen with and without contrast 08/09/2025.. HISTORY: ORDERING SYSTEM PROVIDED HISTORY: Reason for Exam: abd pain, uti, hx of cervical ca. pain while urinating abdominal pain FINDINGS: Visualized portion of the lower chest demonstrates no acute abnormality. Liver is within normal limits for size and demonstrates a smooth contour. No abnormal enhancement. Some focal fatty sparing about the falciform is noted. Unremarkable appearance of the gallbladder. The spleen, pancreas and adrenal glands are unremarkable. Redemonstration of atrophy and scarring of the left kidney with a percutaneous nephrostomy tube in place and similar perinephric stranding to prior. Mild left hydroureter is again noted. No hydroureteronephrosis on the right. The urinary bladder is incompletely distended but appears mildly thickened. The uterus is surgically absent. The stomach is partially distended with ingested contents. Bowel gas is noted to the level of the rectum without evidence of obstruction. The appendix is visualized and unremarkable. No free air or fluid. No abdominal or pelvic adenopathy. No abnormality involving the vascular structures. No acute osseous or soft tissue abnormalities are noted. IMPRESSION: 1. Mild thickening of the urinary bladder wall which may be secondary to incomplete distension versus cystitis. Correlation with urinalysis is recommended. 2. Redemonstration of left renal atrophy and scarring with percutaneous nephrostomy tube in place. Interpreted by: Cesar Tamayo Preliminary Report By: Cesar Tamayo Electronically signed By Cesar Tamayo Dictated Date: 03/15/2025 6:02:41 PM Prelim Date: 03/15/2025 6:11:20 PM Sign Date: 03/15/2025 6:11:20 PM Ordering Provider: [facility]05-07-2025 Hospital Discharge instructions Patient Education 03/09/2025 16:35:01 Medicine for Pain Medicine for Pain Medicines can help to block pain, decrease inflammation, and treat related problems. More than one medicine may be used to treat your pain. Medicines may be changed as you feel better, or if they cause side effects. Medicines What they do Possible side effects Non-opioid NSAIDs, aspirin, acetaminophen Reduce pain chemicals at the site of pain. NSAIDs can reduce joint and soft tissue inflammation. Nausea, stomach pain, ulcers, indigestion, bleeding, kidney, and liver problems. Certain NSAIDs mayincrease the risk for cardiovascular disease in some people. Talk with your healthcare provider. Opioids (morphine and similar medicines often called narcotics) Reduce feelings or perception of pain. Used for moderate to severe pain. Nausea, vomiting, itching, drowsiness, constipation, slowed breathing Other medicines (corticosteroids, antinausea, antidepressant, and antiseizure medicines) Reduce swelling, burning or tingling pain, or certain side effects of pain medicines, such as nausea or vomiting Your healthcare provider will explain the possible side effects of these medicines. Anesthetics (local, injected) include lidocaine, benzocaine, and medicines used by anesthesiologists Stop pain signals from reaching the brain by blocking feeling in the treated area Nausea, low blood pressure, fever, slowed breathing, fainting, seizures, heart attack When to call your healthcare provider Call your healthcare provider right away (or have a family member call) if you have: Unrelieved pain Side effects, including constipation or uncontrolled nausea, that interfere with daily activities If you have extreme sleepiness or breathing problems, call 911. Other precautions Ask your healthcare provider or pharmacist how to get rid of your pain medicines safely when you stop using them. Never share your pain medicines with anyone. Store your medicines in a safe place so they can t be stolen. If you think your medicine has been stolen or lost, tell your healthcare provider right away. [id number] [employer]. [address] [place], [place] [id number]. All rights reserved. This information is not intended as a substitute for professional medical care. Always follow yourhealthcare professional's instructions. Follow Up Care 03/09/2025 12:12:49 With:GONZALEZ CARMONA MD, [facility] Address: [address] [place] [phone]- [phone] When:2-4 days only if needed With:OLE PACE MD Address: [address] [place] [phone] When:2-4 days [facility] 05-07-2025 Emergency department Discharge summary Discharge Instructions Thank you for allowing [facility] to assist you with your healthcare needs. The following is importantdischarge information regarding your hospital visit. Diagnosis from Today's Visit Flank pain What to Do Next Instructions from Your Care Team No qualifying data available. Post Acute Orders No qualifying data available. You Need to Schedule the Following Appointments Follow Up with GONZALEZ CARMONA MD, [facility] When:Within 2-4 days, only if needed Where:[address] [place] [phone] Follow Up with OLE PACE MD When:Within 2-4 days Where:[address] [place] [phone] Allergies Haldol Tongue swelling Oranges Tongue swelling, Difficulty breathing penicillin Hives Medications Please ask your primary doctor or pharmacist before taking any other medication not listed, including over the counter drugs, herbal medications, vitamins and or supplements as they may interact withur home medications. What How Much When Why Instructions Last Dose Unchanged acetaminophen (Tylenol Extra Strength 500 mg oral tablet) 2 tab(s) by mouth Every 4 hours as needed for as needed for pain Unchanged albuterol (albuterol MDI (90 mcg/ inh) CFC free inhalation aerosol) 2 puff(s) by inhalation Every 6 hours as needed for as needed for wheezing Unchanged escitalopram (Lexapro 20 mg oral tablet) 1 tab(s) by mouth Once a day Unchanged ibuprofen (Motrin IB 200 mg oral tablet) 2 tab(s) by mouth Every 4 hours as needed for as needed for pain Unchanged LORazepam (Ativan 1 mg oral tablet) 1 tab(s) by mouth Three (3) times a day as needed for as needed for anxiety Palliative care patient THO (generalized anxiety disorder) Unchanged ondansetron (ondansetron 4 mg oral tablet) 1 tab(s) by mouth Two (2) times a day TAKE ONE TABLET BY MOUTH EVERY 8 HOURS NEEDED FOR NAUSEA AND VOMITING Unchanged oxyCODONE (oxyCODONE 5 mg oral tablet ( IMMEDIATE release )) 2 tab(s) by mouth Every 6 hours as needed for for pain Cervical ca Cancer related pain Unchanged sulfamethoxazole-trimethoprim (Bactrim DS 800 mg-160 mg oral tablet) 1 tab(s) by mouth Two (2) times a day Kidney stone Left flank pain Hydronephrosis, left Duration: 30 Days Please take this list to your next doctor s visit. Bring all medications you take, including over the counter medications, herbals and other supplements with you to your doctor s visit. Patients and families are reminded to discard old lists and to update any records with all medication providers or retail pharmacies. Education Materials Medicine for Pain Medicines can help to block pain, decrease inflammation, and treat related problems. More than one medicine may be used to treat your pain. Medicines may be changed as you feel better, or if they cause side effects. Medicines What they do Possible side effects Non-opioid NSAIDs, aspirin, acetaminophen Reduce pain chemicals at the site of pain. NSAIDs can reduce joint and soft tissue inflammation. Nausea, stomach pain, ulcers, indigestion, bleeding, kidney, and liver problems. Certain NSAIDs mayincrease the risk for cardiovascular disease in some people. Talk with your healthcare provider. Opioids (morphine and similar medicines often called narcotics) Reduce feelings or perception of pain. Used for moderate to severe pain. Nausea, vomiting, itching, drowsiness, constipation, slowed breathing Other medicines (corticosteroids, antinausea, antidepressant, and antiseizure medicines) Reduce swelling, burning or tingling pain, or certain side effects of pain medicines, such as nausea or vomiting Your healthcare provider will explain the possible side effects of these medicines. Anesthetics (local, injected) include lidocaine, benzocaine, and medicines used by anesthesiologists Stop pain signals from reaching the brain by blocking feeling in the treated area Nausea, low blood pressure, fever, slowed breathing, fainting, seizures, heart attack When to call your healthcare provider Call your healthcare provider right away (or have a family member call) if you have: Unrelieved pain Side effects, including constipation or uncontrolled nausea, that interfere with daily activities If you have extreme sleepiness or breathing problems, call 911. Other precautions Ask your healthcare provider or pharmacist how to get rid of your pain medicines safely when you stop using them. Never share your pain medicines with anyone. Store your medicines in a safe place so they can t be stolen. If you think your medicine has been stolen or lost, tell your healthcare provider right away. [phone] [employer]. [address] [place] [address], [place] [address]. All rights reserved. This information is not intended as a substitute for professional medical care. Always follow yourhealthcare professional's instructions. Additional Information VACCINATE! IT SAVES LIVES! Members of the community who have not yet received the COVID-19 vaccine and would like to receive it can visit one of [facility] vaccine clinics. There are many vaccine clinic locations within the [facility]. For locations and available times, please visit [email or web address]/. It is important to note that some COVID mobile vaccine clinics are held outdoors and may be canceled in rainy or stormy conditions. To learn more about pediatric vaccinations (ages 5-11), we invite you to visit the [facility] webpage. https://www.[facility].org/pages/6580-Rtgos-Zbcrvtrspwt-Fctlsvdeqp-Wkjwo-Aki stions.htmlTo learn more about the COVID-19 vaccine, we invite you to visit the CDC website for a list of frequently asked questions. https://www.cdc.gov/coronavirus/2019-ncov/vaccines/faq.html [facility] [employer] Patient Portal Access Instructions: Stay connected with your healthcare team and access your personal medical information anytime with the [facility] [employer] Patient Portal. If you would like a full copy of your medical records please contact the [facility] Medical Records Department Friday through Friday between 8a.m. and 4:30p.m. Please follow the directions below to access the portal: 1.Access the email account you provided upon [facility] to the [facility].2.Look for an invitation email from [facility].3.Open the email and access the invitation link: Accept Invitation to [facility]4.Fill in the required quintero to create your account. Sign into [email or web address] with your username and password that you created in the above steps to stay up to date. You can then view a summary of results, a summary of your visits, and the ability to download your summaries to your computer or send the information securely to a physician. Remember that your healthcare information is confidential, so carefully consider who you will allow to register on the [facility] [employer] Patient Portal for access to your information. You can also access the [facility] Patient Portal on the [employer]. Simply click on Health Records under [place] and then click on the [employer] logo. HOW TO SAFELY DISPOSE OF PRESCRIPTION MEDICATIONS Please use one of the following methods to safely dispose of your unused medications. 1.Use a drug disposal kit: the drug disposal pouch allows you to safely discard your old and unuseddrugs. Ask your nurse to give you one when you are discharged.2.Visit a local take-back location: Many local pharmacies and police departments have programs that collect old and unwanted prescriptiondrugs. Call your local pharmacy or go to http://Wishabi.ConsumerBell/4I2Aa5t to find one close to you.3.Make use of household items: Use cat litter or old coffee grounds to dispose medications if other options arenot available. Mix your drugs with these household products, seal them in an airtight container andthrow it into the garbage. Call [facility]: [phone] to be sure your drugs can be disposed of in this way. Some medicines may require a different approach.4.Never flush your medications down the toilet. IF YOU HAVE BEEN PRESCRIBED AN OPIOIDS FOR PAIN If you have been prescribed an opioid (such as hydrocodone, oxycodone or morphine), it is critical to understand the possible side effects and risks of opioid pain medications. Even when taken as directed, opioids can have several side effects including: Tolerance, meaning you might need to take more of a medication for the same pain relief. Nausea, vomiting and/or constipation. Sleepiness, dizziness, dry mouth, confusion, depression or itching. Physical dependence, meaning you have withdrawal symptoms when a medication is stopped ? this can develop within a few days. KNOW YOUR RESPONSIBILITIES It is important to know exactly how much and how often to take the opioid pain medications you are prescribed. Never take opioids in higher amounts or more often than prescribed. Do not combine opioids with alcohol or other drugs that cause drowsiness, such as benzodiazepines, also known as benzos,including diazepam and alprazolam, muscle relaxants or sleep aids. Never sell or share prescriptionopioids. This is illegal. Store opioids in a secure place and out of reach of others (including children, family, friends and visitors). The last page(s) of this document has been signed and retained as a CHART COPY Signatures Patient Education Materials Medicine for Pain Medication Leaflets My discharge plan and instructions have been reviewed and explained to me and I,LALY NAVAS understand my current condition and have read and understand these discharge instructions. I have received a written copy of the plan/instructions. If I have questions, I am aware that I should contact my doctor. 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 Signature: Date/Time: Relationship to Patient: Witness Name/Signature: [id number]* Exam Date Time Procedure Performing Provider Status 03/09/25 3:[address] Renal SCOOBY JOSE MD; Auth (Verified) [id number] ORIGINAL EXAMINATION: CT RENAL 03/09/2025 3:54 pm TECHNIQUE: CT of the abdomen was performed without and then with the administration of intravenous contrast. Multiplanar reformatted images are provided for review. Automated exposure control, iterative reconstruction, and/or weight based adjustment of the mA/kV was utilized to reduce the radiation dose to as low as reasonably achievable. COMPARISON: CT abdomen pelvis April 27, 2023, fluoroscopic images from nephrostomy exchange February 16, 2025. HISTORY: ORDERING SYSTEM PROVIDED HISTORY: Reason for Exam: renal failure, hx of cervical ca. uti. flank pain flank pain. FINDINGS: Kidneys and visualized portions of the proximal ureters: Redemonstrated areas of left renal scarring. Left renal collecting system and proximal ureteral wall thickening and enhancement with mild surrounding haziness. Similar appearing left pelvicaliectasis. Asymmetric left perinephric edema. Asymmetric percutaneous nephrostomy tube Vasculature: Nonaneurysmal abdominal aorta. Lymph nodes and retroperitoneal spaces: A few chronic mildly prominent retroperitoneal lymph nodes at the level of the left renal vessels. GI/Bowel: Grossly unremarkable. Solid Organs: A few scattered subcentimeter hypodensities in the liver which are too small to characterize. Bones/Soft Tissues: No acute osseous abnormality. IMPRESSION: Left renal collecting system and proximal ureteral wall thickening and enhancement with mild surrounding haziness, which could be chronic although correlate with urinalysis if concern for underlying infection. Similar appearing left pelvicaliectasis with percutaneous nephrostomy tube in place. I have personally reviewed the images of this examination and agree with the resident's findings and interpretation. Interpreted by: Scooby Jose Preliminary Report By: Scooby Jose Electronically signed By Scooby Jose Dictated Date: 03/09/2025 4:00:57 PM Prelim Date: 03/09/2025 4:13:54 PM Sign Date: 03/09/2025 4:13:54 PM Ordering Provider: SHAHBAZ [facility]05-07-2025 Note* Exam Date Time Procedure Performing Provider Status 03/09/25 1:49 PM XR Chest 1 View MARTHA TRIVEDI MD; Auth (Verified) [id number] ORIGINAL EXAMINATION: ONE XRAY VIEW OF THE CHEST03/09/2025 1:49 pm COMPARISON: CT abdomen pelvis 04/27/2023, CT chest 04/13/2020. HISTORY: ORDERING SYSTEM PROVIDED HISTORY: Reason for Exam: fever, pain or tachypnea FINDINGS: Cardiomediastinal contours are within normal limits. No focal consolidation or pulmonary edema. No pneumothorax or pleural effusion. No acute osseous abnormalities. IMPRESSION: No acute cardiopulmonary process. I have personally reviewed the images of this examination and agree with the resident's findings and interpretation. Interpreted by: Martha Trivedi MD Preliminary Report By: Gonzalez Méndez MD Electronically signed By Martha Trivedi MD Dictated Date: 03/09/2025 1:57:32 PM Prelim Date: 03/09/2025 2:07:59 PM Sign Date: 03/09/2025 2:07:59 PM Ordering Provider: [id number] NoteORIGINAL PROCEDURE: 1. Percutaneous left nephrostomy tube exchange with fluoroscopy CLINICAL STATEMENT: History of cervical cancer with left ureteral obstruction HUMAN RESOURCES DIRECTOR: Tadeo Leija PA-C MATERIALS: 12 Fr X 35 cm nephrostomy drainage catheter Amplatz wire Drainage bag 2-0 Ethibond CONTRAST: 12 mL ANESTHESIA: General, under the direction of anesthesia FLUORO: 1.2 minutes AIR KERMA DOSE: 3 mGy The procedure, risks, and alternatives, were discussed and all questions were answered. Informed consent obtained. Accompanying paperwork was verified for accuracy. Directed history and physical exam performed prior to the procedure. Medication reconciliation performed by nursing personnel. Procedure was performed using a cap, sterile gown, sterile gloves, a large sterile sheet, hand hygiene and 2% chlorhexidine for cutaneous antisepsis. The patient was positioned on the table and prepped and draped in usual sterile fashion. A critical pause was performed with assisting personnel just prior to the procedure with the patient's identity confirmed using 2 identifiers, confirming site and side. Sausage Stuffer image with contrast injection demonstrates stable appearance of the nephrostomy tube. After cutting the hub, the old catheter was exchanged for a new one over a wire and the distal loop formed in the renal pelvis, confirmed with contrast injection. The string was removed in its entirety. The catheter was flushed and attached to dependent drainage bag. COMPLICATIONS: None EBL: None CONDITION: unchanged IMPRESSION: 1. Successful, uncomplicated left nephrostomy tube exchange. Procedure was performed by Tadeo Leija PA-C. I concur with the contents of this report. Interpreted by: Madeline Aparicio MD Preliminary Report By: Tadeo Leija PA-C Electronically signed By Madeline Aparicio MD Dictated Date: 02/16/2025 4:44:54 PM Prelim Date: 02/16/2025 4:47:28 PM Sign Date: 02/16/2025 4:47:28 PM Ordering Provider: [facility]04-16-[facility] Evaluation + Plan noteExtracted from: Title:IR Pre-Procedure H&P Author:ROMMEL HERRERA PA-C Date:02/16/25 IR PREPROCEDURE H&P UPDATE IF A HISTORY AND PHYSICAL EXAMINATION HAS BEEN COMPLETED PRIOR TO ADMISSION TO THE HOSPITAL, AN UPDATED EXAMINATION MUST BE COMPLETED AND DOCUMENTED WITHIN 24 HOURS AFTER ADMISSION OR REGISTRATION BUT BEFORE A SURGICAL PROCEDURE. I have examined the patient, reviewed the H&P, and there are no changes unless noted below: _ The most recent H&P/Office Note was performed on 02/14/2025 and can be found in the [facility] ([place]). Shantelle Herrera PA-C Interventional Radiology Pager: [phone] IR dept: x [phone] Available on itzat Future Appointments Appointment Date:03/14/2025 01:30:00 PM Scheduled Provider:OLE PACE MD Location:[facility] Appointment Type:PALL OV Follow Up Appointment Date:05/18/2025 11:20:00 AM Scheduled Provider: Location:[facility] Appointment Type:SO OV Follow Up Future Scheduled Tests Laboratory* Clostridium difficile (PCR) 03/04/24 * Ova + Parasite Exam 03/04/24 * hCG, quantitative (AH/AM Only) 11/15/24 Radiology* IR Nephrostomy Exchange 12/30/24 [facility] 04-16-2025 Hospital Discharge instructions Patient Education 02/16/2025 10:11:22 Radiology- Nephrostomy/Nephroureteral Tube Exchange 12/26/2022 (Custom) SAVANNAH Nephrostomy/Nephroureteral Tube Exchange Discharge Instructions Interventional Radiology [facility] [address] [place] [address] The procedure that you had done today is called a nephrostomy tube exchange. This is a procedure toreplace a pre-existing tube that drains the urine from the kidney in order to prevent pain, infection and kidney damage. This should occur every 6-12 weeks, depending on your physician's orders and personal condition. Your urine may be blood tinged, in the bag and from regular urination, for up to 48 hours. If you had a nephroureteral tube exchange today, then this procedure is to replace a pre-existing tube that goes from your back into the kidney and down the ureter to the bladder. This tube may be either capped or have a dependent bag attached like a nephrostomy tube. Please follow these instructions: DIET: Resume previous diet as tolerated ACTIVITY: Wear loose, comfortable clothing. Make sure your tube is secure at all times. Avoid tugging at the tube. PAIN CONTROL: Mild back discomfort on the side of the tube placement may occur for the first 24 hours. You may experience the feeling of the need to urinate. Vhks-qrv-[id number] pain medication should be used for pain or discomfort. Please check with the physician who sent you for this procedure for their specific recommendations. If your pain is not relieved or becomes more severe, notify the physician who sent you for this procedure. IF YOU RECEIVED CONSCIOUS SEDATION (IV SEDATION) & YOU ARE DISCHARGED THE SAME DAY You must have someone drive you home when you leave the hospital. For 24 hours after your procedure, do not do anything where you need to make important decisions. This includes operating machinery, signing important documents, etc. MEDICATION: Please resume on . NEPHROSTOMY CARE: Wash your hands well with soap and water before and after caring for your nephrostomy tube. Keep the skin around the nephrostomy tube dry. If the area does get wet, dry the skin completely. Change the dressing every week, or as needed if it is leaking or the dressing becomes saturated. Keep all the ports of the tube and drainage bag as clean as possible to prevent infection. Empty the drainage bags often via the spout at the bottom of the bag. Turn clockwise. Avoid overfilling. Always empty the bag before bed. Some patients will be required to flush their tubes, please check with ordering physician for instructions and supplies. (You do not need to do this unless specifically instructed by your healthcare provider). TUBE PROBLEMS Call Interventional Radiology IMMEDIATELY if the tube falls out. Call Interventional Radiology if you notice decreased or no urine output or if urine leaks from thedressing site from tube. Call your Urologist if any abnormal bleeding, foul odor or drainage, redness, swelling, worsening pain, or fever above 102F. If the catheter falls out, it can be replaced by the doctor ideally within 24 hours. Do not attemptto put the tube back in yourself. BATHING Avoid swimming. You may shower with the nephrostomy bag attached to the skin, sit in a shallow bath, or sponge bathe while the catheter is in place. Be sure to keep the water level below the dressingwhen tub bathing. Please change your dressing if it gets wet. SPECIFIC INSTRUCTIONS TO CHANGE NEPHROSTOMY TUBE DRESSING Supplies needed: Soap and water Clean, dry towel Nephrostomy bag Clean adhesive dressing Gauze Because the nephrostomy tube is located on your back, you will need someone to assist you in changing the dressing. Wash hands well Remove the old dressing, peeling the edges slowly from skin. As the dressing is pulled away from the skin, support the nephrostomy tube with your free hand to prevent placing tension on the tube and accidentally pulling it out. Wash the area around the nephrostomy tube with soap and water. Gently pat the area dry. Need 2 layers of gauze. One layer in between the skin and the tube. Second layer of gauze goes overthe tube. Then place the clean adhesive dressing over the gauze. Supplies may be obtained at: [facility] [address] [facility] [address] [facility] Any questions or concerns, please contact your physician or Interventional Radiology at [phone] from 8-4:30pm Friday-Friday. If you do not have a follow up appointment scheduled at the time of discharge, please call Interventional Radiology at the number listed above. Follow Up Care 12/22/2024 11:44:53 With:PINA PANTOJA Address: [address] [place] [address] [place] [address]- [phone] When: Unknown Comments:Schedule appointment as soon as possible [facility] 04-16-2025 Note* Bita Frias: SIGN, AUTHOR, SIGN, AUTHOR, PERFORM Event Display: IR Procedure Record Authored Date: [id number] IR Procedure Record Summary Primary Physician: Finalized Date/Time: 02/16/25 09:07:22 Pt. Name: LALY NAVAS/Sex: 1990 Female Med Rec #: [id number] Physician: Financial #: [id number] Pt. Type: S Room/Bed: [facility]/A Admit/Disch: 02/16/25 06:14:49 - Institution: Allergies identified in patient's electronic medical record at time of printing on 02/16/25 Entry 1 Entry 2 Entry 3 Substance Haldol Oranges penicillin Reaction Type Allergy Allergy Allergy Last Modified By: Fany Ruelas LPN, Kimberly V. RN Holt, Kimberly V. RN 11/19/23 09:39:23 07/21/23 10:11:02 07/21/23 10:10:45 Case Attendance- IR Entry 1 Entry 2 Entry 3 Case Attendee TADEO LEIJA PA-C, Megan R Rad Leggett, Brandon L Tech Role Performed Radiology PA/RA Scrub Technologist Circulating Technologist Details Time In 02/16/25 08:38:00 02/16/25 08:10:00 02/16/25 08:10:00 Time Out 02/16/25 08:46:00 02/16/25 09:00:00 02/16/25 09:00:00 Procedure/Preference IR Nephrostomy Exchange IR Nephrostomy Exchange IR Nephrostomy Exchange Card (SN) (SN) (SN) Last Modified By: Bita Frias Elizabeth M Chaddock, Elizabeth M 02/16/25 08:49:03 02/16/25 08:49:03 02/16/25 08:49:03 Entry 4 Entry 5 Entry 6 Case Attendee Bita Frias JEFFREY MD EYRING, ERIK S LITIGATION ATTORNEY ASSOCIATE-SCALEMAKER Role Performed [employer] Professor 1 Anesthesiologist SCALEMAKER Details Time In 02/16/25 08:10:00 02/16/25 08:10:00 02/16/25 08:10:00 Time Out 02/16/25 09:00:00 02/16/25 09:00:00 02/16/25 09:00:00 Procedure/Preference IR Nephrostomy Exchange IR Nephrostomy Exchange IR Nephrostomy Exchange Card (SN) (SN) (SN) Last Modified By: Bita Frias Elizabeth M Chaddock, Elizabeth M 02/16/25 08:49:03 02/16/25 08:49:03 02/16/25 08:49:03 Entry 7 Case Attendee Marisa Gastelum RN Role Performed Procedure Nurse Details Time In 02/16/25 08:10:00 Time Out 02/16/25 09:00:00 Procedure/Preference IR Nephrostomy Exchange Card (SN) Last Modified By: Bita Frias 02/16/25 08:49:03 Radiology Procedures- IR Entry 1 Procedure/Preference IR Nephrostomy Exchange Actual Procedure left neph tube exchange Card (SN) Primary Procedure Yes Primary Surgeon TADEO LEIJA PA-C Anesthesia/Sedation General, Local Type Additional Procedure Times Start 02/16/25 08:38:00 Stop 02/16/25 08:46:00 Specialty Service SN Radiology Procedure EBL 1 mL Last Modified By: Bita Frias 02/16/25 09:05:28 Radiology Procedure Details - IR Entry 1 Radiology Sedation Case Times Sedation Total Time 0 Radiology - Fluid/Drainage Radiology Contrast Contrast Used? Yes Dose 12 mL Medication CONTRAST ISOVUE 300/30ML 10/CA 636043 Radiology Flouroscopy Fluoroscopy Used? Yes Fluoro Dose (mGy) 3 Fluoro Time 1.2 min Radiology Local Local Used? Yes Local Type: lido 2% Local Dose 3 ml Radiology Procedure Site Site/Location lt flank Site Condition No complications Suture 2.0 Ethibond Suture Dressing Type Gauze sponge 4 X 4, Bioclusive 4 X 5 Technologist Notes [id number] lt neph tube exchange Last Modified By: Bita Frias 02/16/25 09:02:10 General Case Data - IR Entry 1 Case Information Room AH IR 17 Case Level IR Level 3 Wound Class None Specialty SN Radiology Procedure ASA Class 2 Diagnosis Preop Diagnosis image guided lt Postop Same As Preop Yes nephrostomy tube exchange Postop Diagnosis image guided lt nephrostomy tube exchange Last Modified By: Bita Frias 02/16/25 09:07:20 Procedure Case Times- IR Entry 1 Patient In Procedure Patient In OR 02/16/25 08:10:00 Patient Out of OR 02/16/25 09:00:00 Procedure Start/Stop Procedure Start Time 02/16/25 08:38:00 Procedure Stop Time 02/16/25 08:46:00 Last Modified By: Bita Frias 02/16/25 08:48:23 Immediate Post OP Note - IR Entry 1 Immediate Post Yes Findings left neph tube change Procedure Note displayed for Physician to review Closure Technique Closure Technique Other than Primary Last Modified By: Bita Frias 02/16/25 08:47:16 Immediate Post OP Note - IR Signed By: TADEO LEIJA PA-C 02/16/25 08:46 Allergy Information- IR Entry 1 Allergies Reviewed? Yes Allergies Reviewed Patient With Last Modified By: Bita Frias 02/16/25 08:24:39 Radiology Protocols/Time Out- IR Entry 1 Preprocedure Clinician Verifies Correct patient ID When Clinically Confirmation of correct using name & date Indicated side(s) and site(s), or MRN, Accurate Correct diagnostic and procedure, complete radiology tests Informed Consent, H & P available, Required update immediately blood products, prior to procedure, if implants, devices applicable, Anesthesia and/or special personnel completed equipment available medication and anesthesia machine check., Anesthesia personnel completed assessment of allergies, airway, and aspiration risk., Clinical team introduction complete OR/Procedure Room/Bedside Time 02/16/25 08:38:00 Clinician Verifies Correct patient identity including EMR & records using name and date or medical record number, Accurate procedure consent form, Correct patient position, Necessary equipment is available, Anticipated non-routine events with surgical team (case duration, estimated blood loss, patient specific concerns)., Parada patient factors for recovery and management identified with surgical team. When Applicable Confirmation correct Team Members TADEO LEIJA PA-C, side and site marked, Present for Time Out Padmini Fairchild Relevant images and Tech, Capo, Blaine results are properly LAltagracia Elizabeth labeled and LACHO Metz JEFFREY MD, appropriately FRED ZAYAS displayed, Alcohol LITIGATION ATTORNEY ASSOCIATE-SCALEMAKER, Nirav, Marisa based prep dry RN Instrument Sterility Team Members Padmini Fairchild Verifying Sterility Tech Procedure IR Nephrostomy Exchange (SN) Last Modified By: Bita Frias 02/16/25 08:38:56 Skin Prep- IR Entry 1 Procedure IR Nephrostomy Exchange (SN) Skin Prep Prep Area Flank Side Left By Padmini Fairchild Rad Prep Agents Chloraprep Tech Hair Removal Method N/A Last Modified By: Bita Frias 02/16/25 08:34:51 Patient Positioning- IR Entry 1 Procedure IR Nephrostomy Exchange Body Position OP Prone (SN) Feet Uncrossed? Yes Pressure Points n/a Checked Last Modified By: Bita Frias 02/16/25 08:35:07 Radiology Procedure Plan - IR Entry 1 Radiology - Nursing Care Plan Outcome Statement The patient Outcome Statement The patient receives demonstrates knowledge Cont. appropriate of the expected medication(s), safely responses to the administered during the operative/invasive perioperative/invasive procedure., The period., The patient is patient's value system, free from signs and lifestyle, ethnicity, symptoms of injury and culture are caused by extraneous considered, respected, objects (equipment, and incorporated in the instrumentation, perioperative plan of sponges, or sharps). care., The patient is free from signs and symptoms of infection., The patient is free from signs and symptoms of injury related to positioning. Radiology - Action Plan Outcomes Met? Yes Mottler Operator Marisa Gastelum RN Completing Procedure Plan Last Modified By: Bita Frias 02/16/25 08:35:44 Case Comments <None> Finalized By: Bita Frias Document Signatures Signed By: Bita Frias 02/16/25 09:05 Bita Frias 02/16/25 09:07 [facility] 04-16-2025 Summary of episode note Discharge Instructions Thank you for allowing [facility] to assist you with your healthcare needs. The following is importantdischarge information regarding your hospital visit. Your Care Team OLE PACE MD What to do next Scheduled Follow-Up Appointments Appointment Type When With Where Contact Information StatusPALL OV Follow Up 03/14/2025 01:30 PM EDT OLE PACE MD [facility] Confirmed SO OV Follow Up 05/18/2025 11:20 AM EDT [facility] [address] [place] [address] Confirmed Follow Up Appointments Follow Up with PINA PANTOJA Where:[address] [place] [address] [place] [address] [phone] Additional Information: Schedule appointment as soon as possible Allergies Haldol Tongue swelling Oranges Tongue swelling, Difficulty breathing penicillin Hives Medications Please ask your primary doctor or pharmacist before taking any other medication not listed, including over the counter drugs, herbal medications, vitamins and or supplements as they may interact withyour home medications. What How Much When Why Instructions Last Dose Unchanged acetaminophen (Tylenol Extra Strength 500 mg oral tablet) 2 tab(s) by mouth Every 4 hours as needed for as needed for pain Unchanged albuterol (albuterol MDI (90 mcg/ inh) CFC free inhalation aerosol) 2 puff(s) by inhalation Every 6 hours as needed for as needed for wheezing Unchanged escitalopram (Lexapro 20 mg oral tablet) 1 tab(s) by mouth Once a day Unchanged ibuprofen (Motrin IB 200 mg oral tablet) 2 tab(s) by mouth Every 4 hours as needed for as needed for pain Unchanged LORazepam (Ativan 1 mg oral tablet) 1 tab(s) by mouth Three (3) times a day as needed for as needed for anxiety Palliative care patient THO (generalized anxiety disorder) Unchanged ondansetron (ondansetron 4 mg oral tablet) 1 tab(s) by mouth Two (2) times a day TAKE ONE TABLET BY MOUTH EVERY 8 HOURS NEEDED FOR NAUSEA AND VOMITING Unchanged oxyCODONE (oxyCODONE 5 mg oral tablet ( IMMEDIATE release )) 2 tab(s) by mouth Every 6 hours as needed for for pain Cervical ca Cancer related pain Please take this list to your next doctor s visit. Bring all medications you take, including over the counter medications, herbals and other supplements with you to your doctor s visit. Patients and families are reminded to discard old lists and to update any records with all medication providers or retail pharmacies. Education Materials SAVANNAH Nephrostomy/Nephroureteral Tube Exchange Discharge Instructions Interventional Radiology [facility] [address] [facility] [address] The procedure that you had done today is called a nephrostomy tube exchange. This is a procedure toreplace a pre-existing tube that drains the urine from the kidney in order to prevent pain, infection and kidney damage. This should occur every 6-12 weeks, depending on your physician's orders and personal condition. Your urine may be blood tinged, in the bag and from regular urination, for up to 48 hours. If you had a nephroureteral tube exchange today, then this procedure is to replace a pre-existing tube that goes from your back into the kidney and down the ureter to the bladder. This tube may be either capped or have a dependent bag attached like a nephrostomy tube. Please follow these instructions: DIET: Resume previous diet as tolerated ACTIVITY: Wear loose, comfortable clothing. Make sure your tube is secure at all times. Avoid tugging at the tube. PAIN CONTROL: Mild back discomfort on the side of the tube placement may occur for the first 24 hours. You may experience the feeling of the need to urinate. Tjgy-wxo-bjkeuez pain medication should be used for pain or discomfort. Please check with the physician who sent you for this procedure for their specific recommendations. If your pain is not relieved or becomes more severe, notify the physician who sent you for this procedure. IF YOU RECEIVED CONSCIOUS SEDATION (IV SEDATION) & YOU ARE DISCHARGED THE SAME DAY You must have someone drive you home when you leave the hospital. For 24 hours after your procedure, do not do anything where you need to make important decisions. This includes operating machinery, signing important documents, etc. MEDICATION: Please resume on . NEPHROSTOMY CARE: Wash your hands well with soap and water before and after caring for your nephrostomy tube. Keep the skin around the nephrostomy tube dry. If the area does get wet, dry the skin completely. Change the dressing every week, or as needed if it is leaking or the dressing becomes saturated. Keep all the ports of the tube and drainage bag as clean as possible to prevent infection. Empty the drainage bags often via the spout at the bottom of the bag. Turn clockwise. Avoid overfilling. Always empty the bag before bed. Some patients will be required to flush their tubes, please check with ordering physician for instructions and supplies. (You do not need to do this unless specifically instructed by your healthcare provider). TUBE PROBLEMS Call Interventional Radiology IMMEDIATELY if the tube falls out. Call Interventional Radiology if you notice decreased or no urine output or if urine leaks from thedressing site from tube. Call your Urologist if any abnormal bleeding, foul odor or drainage, redness, swelling, worsening pain, or fever above 102F. If the catheter falls out, it can be replaced by the doctor ideally within 24 hours. Do not attemptto put the tube back in yourself. BATHING Avoid swimming. You may shower with the nephrostomy bag attached to the skin, sit in a shallow bath, or sponge bathe while the catheter is in place. Be sure to keep the water level below the dressingwhen tub bathing. Please change your dressing if it gets wet. SPECIFIC INSTRUCTIONS TO CHANGE NEPHROSTOMY TUBE DRESSING Supplies needed: Soap and water Clean, dry towel Nephrostomy bag Clean adhesive dressing Gauze Because the nephrostomy tube is located on your back, you will need someone to assist you in changing the dressing. Wash hands well Remove the old dressing, peeling the edges slowly from skin. As the dressing is pulled away from the skin, support the nephrostomy tube with your free hand to prevent placing tension on the tube and accidentally pulling it out. Wash the area around the nephrostomy tube with soap and water. Gently pat the area dry. Need 2 layers of gauze. One layer in between the skin and the tube. Second layer of gauze goes overthe tube. Then place the clean adhesive dressing over the gauze. Supplies may be obtained at: [facility] [address] [facility] [address] [facility] Any questions or concerns, please contact your physician or Interventional Radiology at [phone] from 8-4:30pm Friday-Friday. If you do not have a follow up appointment scheduled at the time of discharge, please call Interventional Radiology at the number listed above. Additional Information VACCINATE! IT SAVES LIVES! Members of the community who have not yet received the COVID-19 vaccine and would like to receive it can visit one of [facility] vaccine clinics. There are many vaccine clinic locations within the [facility]. For locations and available times, please visit [email or web address].[place].gov/. It is important to note that some COVID mobile vaccine clinics are held outdoors and may be canceled in rainy or stormy conditions. To learn more about pediatric vaccinations (ages 5-11), we invite you to visit the [facility] webpage. [email or web address].[email or web address].org/pages/[email or web address]-Drekg-Kmpfkgqqeoy-Lesdbeiitw-Fraph-[email or web address] stions.htmlTo learn more about the COVID-19 vaccine, we invite you to visit the CDC website for a list of frequently asked questions.https://www.cdc.gov/coronavirus/2019-ncov/vaccines/faq.html [facility] Patient Portal Access Instructions: Stay connected with your healthcare team and access your personal medical information anytime with the [facility] Patient Portal. Please follow the directions below to create your [facility] account: 1.Access the email account you provided upon registration to the hospital/physician office.2.Look for an invitation email from [facility].3.Open the email and access the invitation link: AcceptInvitation to [employer].4.Fill in the required quintero to create your account. To access your account, visit [email or web address]. Click the blue button labeled Access Patient Portal and then log in with the username and password that you created in the steps above. You will be able to view your test results, lab results, a summary of your visits, upcoming appointments and more. There is also a convenient messaging option where you can send secure messages to your p rovider. In addition, you will have the ability to download any documents or summaries to your computer and/or send the information securely to a physician. Remember that your healthcare information is confidential, so carefully consider who you will allowto register on the [facility] Patient Portal for access to your information. You can also access the [employer] Patient Portal on the DeepRockDrivewhere joya. Simply click on Patient Portal and then log into your account. If you would like to receive a full copy of your medical records, please contact the [facility] Medical Records Department by calling [phone], Friday through Friday between 8 a.m. and 4:30 p.m. HOW TO SAFELY DISPOSE OF PRESCRIPTION MEDICATIONS Please use one of the following methods to safely dispose of your unused medications. 1.Use a drug disposal kit: the drug disposal pouch allows you to safely discard your old and unuseddrugs. Ask your nurse to give you one when you are discharged.2.Visit a local take-back location: Many local pharmacies and police departments have programs that collect old and unwanted prescriptiondrugs. Call your local pharmacy or go to http://Wishabi.ConsumerBell/4K1Mx4u to find one close to you.3.Make use of household items: Use cat litter or old coffee grounds to dispose medications if other options arenot available. Mix your drugs with these household products, seal them in an airtight container andthrow it into the garbage. Call [facility]: [phone] to be sure your drugs can be disposed of in this way. Some medicines may require a different approach.4.Never flush your medications down the toilet. IF YOU HAVE BEEN PRESCRIBED AN OPIOID FOR PAIN If you have been prescribed an opioid (such as hydrocodone, oxycodone or morphine), it is critical to understand the possible side effects and risks of opioid pain medications. Even when taken as directed, opioids can have several side effects including: Tolerance, meaning you might need to take more of a medication for the same pain relief. Nausea, vomiting and/or constipation. Sleepiness, dizziness, dry mouth, confusion, depression or itching. Physical dependence, meaning you have withdrawal symptoms when a medication is stopped, can develop within a few days. KNOW YOUR RESPONSIBILITIES It is important to know exactly how much and how often to take the opioid pain medications you are prescribed. Never take opioids in higher amounts or more often than prescribed. Do not combine opioids with alcohol or other drugs that cause drowsiness, such as benzodiazepines, also known as benzos, including diazepam and alprazolam, muscle relaxants or sleep aids. Never sell or share prescription opioids. This is illegal. Store opioids in a secure place and out of reach of others (including children, family, friends and visitors). The last page of this document has been signed and retained as a CHART COPY. Signatures Patient Education Materials Radiology- Nephrostomy/Nephroureteral Tube Exchange 12/26/2022 (Custom) Medication Leaflets My discharge plan and instructions have been reviewed and explained to me and I,LALY NAVAS Austen understand my current condition and have read and understand these discharge instructions. I have received a written copy of the plan/instructions. If I have questions, I am aware that I should contact my doctor. 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 Signature: Date/Time: Relationship to Patient: Witness Name/Signature: Date/Time[id number] Note* Exam Date Time Procedure Performing Provider Status 02/16/25 9:09 AM IR Nephrostomy Exchange MADELINE APARICIO; Auth (Verified) [id number] ORIGINAL PROCEDURE: 1. Percutaneous left nephrostomy tube exchange with fluoroscopy CLINICAL STATEMENT: History of cervical cancer with left ureteral obstruction HUMAN RESOURCES DIRECTOR: Tadeo Leija PA-C MATERIALS: 12 Fr X 35 cm nephrostomy drainage catheter Amplatz wire Drainage bag 2-0 Ethibond CONTRAST: 12 mL ANESTHESIA: General, under the direction of anesthesia FLUORO: 1.2 minutes AIR KERMA DOSE: 3 mGy The procedure, risks, and alternatives, were discussed and all questions were answered. Informed consent obtained. Accompanying paperwork was verified for accuracy. Directed history and physical exam performed prior to the procedure. Medication reconciliation performed by nursing personnel. Procedure was performed using a cap, sterile gown, sterile gloves, a large sterile sheet, hand hygiene and 2% chlorhexidine for cutaneous antisepsis. The patient was positioned on the table and prepped and draped in usual sterile fashion. A critical pause was performed with assisting personnel just prior to the procedure with the patient's identity confirmed using 2 identifiers, confirming site and side. Sausage Stuffer image with contrast injection demonstrates stable appearance of the nephrostomy tube. After cutting the hub, the old catheter was exchanged for a new one over a wire and the distal loop formed in the renal pelvis, confirmed with contrast injection. The string was removed in its entirety. The catheter was flushed and attached to dependent drainage bag. COMPLICATIONS: None EBL: None CONDITION: unchanged IMPRESSION: 1. Successful, uncomplicated left nephrostomy tube exchange. Procedure was performed by Tadeo Leija PA-C. I concur with the contents of this report. Interpreted by: Madeline Aparicio MD Preliminary Report By: Tadeo Leija PA-C Electronically signed By Madeline Aparicio MD Dictated Date: 02/16/2025 4:44:54 PM Prelim Date: 02/16/2025 4:47:28 PM Sign Date: 02/16/2025 4:47:28 PM Ordering Provider: [facility]04-16-2025 Note IR Procedure Record Summary Primary Physician: Finalized Date/Time: 02/16/25 09:07:22 Pt. Name: ANTONELLA LALYCHRIS Chapman./Sex: 1990 Female Med Rec #: [id number] Physician: Financial #: [id number] Pt. Type: S Room/Bed: [facility]/A Admit/Disch: 02/16/25 06:14:49 - Institution: Allergies identified in patient's electronic medical record at time of printing on 02/16/25 Entry 1 Entry 2 Entry 3 Substance Haldol Oranges penicillin Reaction Type Allergy Allergy Allergy Last Modified By: Fany Ruelas LPN, Kimberly V. RN Holt, Kimberly V. RN 11/19/23 09:39:23 07/21/23 10:11:02 07/21/23 10:10:45 Case Attendance- IR Entry 1 Entry 2 Entry 3 Case Attendee TADEO LEIJA PA-C, Megan R Rad Leggett, Brandon L Tech Role Performed Radiology PA/ Scrub Technologist Circulating Technologist Details Time In 02/16/25 08:38:00 02/16/25 08:10:00 02/16/25 08:10:00 Time Out 02/16/25 08:46:00 02/16/25 09:00:00 02/16/25 09:00:00 Procedure/Preference IR Nephrostomy Exchange IR Nephrostomy Exchange IR Nephrostomy Exchange Card (SN) (SN) (SN) Last Modified By: Bita Frias Elizabeth M Chaddock, Elizabeth M 02/16/25 08:49:03 02/16/25 08:49:03 02/16/25 08:49:03 Entry 4 Entry 5 Entry 6 Case Attendee Bita Frias JEFFREY MD EYRING, ERIK S APRN-SCALEMAKER Role Performed [employer] Professor 1 Anesthesiologist SCALEMAKER Details Time In 02/16/25 08:10:00 02/16/25 08:10:00 02/16/25 08:10:00 Time Out 02/16/25 09:00:00 02/16/25 09:00:00 02/16/25 09:00:00 Procedure/Preference IR Nephrostomy Exchange IR Nephrostomy Exchange IR Nephrostomy Exchange Card (SN) (SN) (SN) Last Modified By: Bita Frias Elizabeth M Chaddock, Elizabeth M 02/16/25 08:49:03 02/16/25 08:49:03 02/16/25 08:49:03 Entry 7 Case Attendee Marisa Gastelum RN Role Performed Procedure Nurse Details Time In 02/16/25 08:10:00 Time Out 02/16/25 09:00:00 Procedure/Preference IR Nephrostomy Exchange Card (SN) Last Modified By: Bita Frias 02/16/25 08:49:03 Radiology Procedures- IR Entry 1 Procedure/Preference IR Nephrostomy Exchange Actual Procedure left neph tube exchange Card (SN) Primary Procedure Yes Primary Surgeon TADEO LEIJA PA-C Anesthesia/Sedation General, Local Type Additional Procedure Times Start 02/16/25 08:38:00 Stop 02/16/25 08:46:00 Specialty Service SN Radiology Procedure EBL 1 mL Last Modified By: Bita Frias 02/16/25 09:05:28 Radiology Procedure Details - IR Entry 1 Radiology Sedation Case Times Sedation Total Time 0 Radiology - Fluid/Drainage Radiology Contrast Contrast Used? Yes Dose 12 mL Medication CONTRAST ISOVUE 300/30ML 10/CA 036044 Radiology Flouroscopy Fluoroscopy Used? Yes Fluoro Dose (mGy) 3 Fluoro Time 1.2 min Radiology Local Local Used? Yes Local Type: lido 2% Local Dose 3 ml Radiology Procedure Site Site/Location lt flank Site Condition No complications Suture 2.0 Ethibond Suture Dressing Type Gauze sponge 4 X 4, Bioclusive 4 X 5 Technologist Notes [id number] lt neph tube exchange Last Modified By: Bita Frias 02/16/25 09:02:10 General Case Data - IR Entry 1 Case Information Room IR 17 Case Level IR Level 3 Wound Class None Specialty SN Radiology Procedure ASA Class 2 Diagnosis Preop Diagnosis image guided lt Postop Same As Preop Yes nephrostomy tube exchange Postop Diagnosis image guided lt nephrostomy tube exchange Last Modified By: Bita Frias 02/16/25 09:07:20 Procedure Case Times- IR Entry 1 Patient In Procedure Patient In OR 02/16/25 08:10:00 Patient Out of OR 02/16/25 09:00:00 Procedure Start/Stop Procedure Start Time 02/16/25 08:38:00 Procedure Stop Time 02/16/25 08:46:00 Last Modified By: Bita Frias 02/16/25 08:48:23 Immediate Post OP Note - IR Entry 1 Immediate Post Yes Findings left neph tube change Procedure Note displayed for Physician to review Closure Technique Closure Technique Other than Primary Last Modified By: Bita Frias 02/16/25 08:47:16 Immediate Post OP Note - IR Signed By: TADEO LEIJA PA-C 02/16/25 08:46 Allergy Information- IR Entry 1 Allergies Reviewed? Yes Allergies Reviewed Patient With Last Modified By: Bita Frias 02/16/25 08:24:39 Radiology Protocols/Time Out- IR Entry 1 Preprocedure Clinician Verifies Correct patient ID When Clinically Confirmation of correct using name & date Indicated side(s) and site(s), or MRN, Accurate Correct diagnostic and procedure, complete radiology tests Informed Consent, H & P available, Required update immediately blood products, prior to procedure, if implants, devices applicable, Anesthesia and/or special personnel completed equipment available medication and anesthesia machine check., Anesthesia personnel completed assessment of allergies, airway, and aspiration risk., Clinical team introduction complete OR/Procedure Room/Bedside Time 02/16/25 08:38:00 Clinician Verifies Correct patient identity including EMR & records using name and date or medical record number, Accurate procedure consent form, Correct patient position, Necessary equipment is available, Anticipated non-routine events with surgical team (case duration, estimated blood loss, patient specific concerns)., Parada patient factors for recovery and management identified with surgical team. When Applicable Confirmation correct Team Members TADEO LEIJA PA-C, side and site marked, Present for Time Out Padmini Fairchild Relevant images and Tech, Kersey, Blaine results are properly L, Bita Frias labeled and MLACHO JEFFREY MD, appropriately FRED ZAYAS displayed, Alcohol LITIGATION ATTORNEY ASSOCIATE-Nirav ESPINOZA Hannah based prep dry RN Instrument Sterility Team Members Padmini Fairchild Verifying Sterility Tech Procedure IR Nephrostomy Exchange (SN) Last Modified By: Bita Frias 02/16/25 08:38:56 Skin Prep- IR Entry 1 Procedure IR Nephrostomy Exchange (SN) Skin Prep Prep Area Flank Side Left By Padmini Fairchild Prep Agents Chloraprep Tech Hair Removal Method N/A Last Modified By: Bita Frias 02/16/25 08:34:51 Patient Positioning- IR Entry 1 Procedure IR Nephrostomy Exchange Body Position OP Prone (SN) Feet Uncrossed? Yes Pressure Points n/a Checked Last Modified By: Bita Frias 02/16/25 08:35:07 Radiology Procedure Plan - IR Entry 1 Radiology - Nursing Care Plan Outcome Statement The patient Outcome Statement The patient receives demonstrates knowledge Cont. appropriate of the expected medication(s), safely responses to the administered during the operative/invasive perioperative/invasive procedure., The period., The patient is patient's value system, free from signs and lifestyle, ethnicity, symptoms of injury and culture are caused by extraneous considered, respected, objects (equipment, and incorporated in the instrumentation, perioperative plan of sponges, or sharps). care., The patient is free from signs and symptoms of infection., The patient is free from signs and symptoms of injury related to positioning. Radiology - Action Plan Outcomes Met? Yes Mottler Operator Hill, Marisa RN Completing Procedure Plan Last Modified By: Bita Frias 02/16/25 08:35:44 Case Comments Finalized By: Bita Frias Document Signatures Signed By: Bita Frias 02/16/25 09:05 Bita Frias 02/16/25 09:07 [id number] Procedure note IR Brief Post Procedure Note Preprocedure Dx: cervical cancer, left ureteral obstruction Post Procedure Dx: Same Procedure: LEFT nephrostomy tube exchange Anesthesia: Per anesthesia team EBL: Minimal Complications: None Status: Unchanged Findings: 1. Successful left nephrostomy tube exchange. Plan: 1. Attached to dependent drainage bag. 2. Recover in PACU, then D/C to home Full report to follow. Tadeo Leija PA-C Interventional Radiology Pager: [phone] IR dept: [id number] Available on itzat Digitally Signed by TADEO LEIJA PA-C on 02/16/2025 09:00 AM [facility] [id number] Anesthesiology Consult note Patient: LALY NAVAS Age: 34 years Sex: Female : 1990 Associated Diagnoses: None Author: OLE MONK MD Preoperative Information NPO >8 hours food >2hours clear liqiods Anesthesia history Patient's history: negative. Health Status Allergies: Allergic Reactions (Selected) Severity Not Documented Haldol- Tongue swelling. Oranges- Tongue swelling and difficulty breathing. Penicillin- Hives., Allergies (3) ActiveSeverityReaction penicillinHives OrangesDifficulty breathing, Tongue swelling HaldolTongue swelling Current medications: (Selected) Inpatient Medications Ordered NS 1,000 mL: Start: 02/16/25 4:03:00 EDT, Rate: 20 mL/hr, 02/16/25 4:03:00 EDT lidocaine 1% preservative-free injectable solution: Start: 07/03/20 5:00:00 EDT, Dose = 2.5 mg, = 0.25 mL, Intradermal, prep pharm, 12 hour(s), Stop: 07/03/20 16:59:00 EDT, 0 lidocaine 1% preservative-free injectable solution: Start: 07/18/20 5:00:00 EDT, Dose = 2.5 mg, = 0.25 mL, Intradermal, prep pharm, 13 hour(s), Stop: 07/18/20 17:59:00 EDT, 0 Prescriptions Prescribed Ativan 1 mg oral tablet: Dose : 1 mg = 1 tab(s), Oral, TID, PRN as needed for anxiety, # 90 tab(s),2 Refill(s), [facility]acy: [facility] Palliative care patient THO (generalized anxiety disorder), 167.6, cm, 12/22/24 8:11:00 EST, Height, 53.6, kg, ... Lexapro 20 mg oral tablet: Dose : 20 mg = 1 tab(s), Oral, qDay, # 30 tab(s), 5 Refill(s), Pharmacy:[facility] 167.6, cm, 12/22/24 8:11:00 EST, Height, kg, 12/22/24 8:11:00 EST,Dosing Weight ondansetron 4 mg oral tablet: Dose : 4 mg = 1 tab(s), Oral, BID, TAKE ONE TABLET BY MOUTH EVERY 8 HOURS NEEDED FOR NAUSEA AND VOMITING, # 60 tab(s), 2 Refill(s), Pharmacy: [facility] 167.6, cm, 11/15/24 8:43:00 EST, Height, kg, 10/13/24 6:49:00 EST, Dosing... oxyCODONE 5 mg oral tablet ( IMMEDIATE release ): Dose : 10 mg = 2 tab(s), Oral, q6h, PRN for pain,# 240 tab(s), 0 Refill(s), Pharmacy: [facility] Cervical ca Cancer related pain, 167.6, cm, 12/22/24 8:11:00 EST, Height, 52.4, kg, 02/14/25 11:39:00 EDT, Dosing Weight Documented Medications Documented Motrin IB 200 mg oral tablet: Dose : 400 mg = 2 tab(s), Oral, q4h, PRN as needed for pain, 0 Refill(s) Tylenol Extra Strength 500 mg oral tablet: Dose : 1,000 mg = 2 tab(s), Oral, q4h, PRN as needed forpain albuterol MDI (90 mcg/inh) CFC free inhalation aerosol: 2 puff(s), Inhalation, q6h, PRN as needed for wheezing, # 8.5 gram(s), 0 Refill(s), Medications (1) Active Scheduled: (0) Continuous: (1) NS (0.9% nacl) 1,000 mL 1,000 mL, Intravenous, 20 mL/hr PRN: (0) Problem list: Medical Anxiety / SNOMED CT 79723544 / Confirmed Asthma / SNOMED CT 516649994 / Confirmed Decreased appetite / SNOMED CT 192002843 / Confirmed Dehydration / SNOMED CT 31327873 / Confirmed Bilateral flank pain / SNOMED CT 693993255 / Confirmed History of chemotherapy / SNOMED CT 4095398978 / Confirmed Hx of cervical cancer / SNOMED CT 4504530627 / Confirmed History of radiation therapy / SNOMED CT 2875943920 / Confirmed Hydronephrosis, left / SNOMED CT 16278240 / Confirmed Acute kidney injury / SNOMED CT 43878632 / Confirmed Left flank pain / SNOMED CT 584106990 / Confirmed Cervical cancer / SNOMED CT 385135177 / Confirmed Moderate protein-calorie malnutrition / SNOMED CT 969539634 / Confirmed Nausea and vomiting / SNOMED CT 97402661 / Confirmed Cancer related pain / SNOMED CT 6415275437 / Confirmed DVT prophylaxis / SNOMED CT 597150572 / Confirmed Palliative care encounter / SNOMED CT 248336637 / Confirmed Premature menopause / SNOMED CT 8840683007 / Confirmed Pyelonephritis / SNOMED CT 61129312 / Confirmed Nephrostomy status / SNOMED CT 935770492 / Confirmed Obstructive uropathy / SNOMED CT 44183351 / Confirmed Resolved: Chronic kidney disease, stage 3 (moderate) / SNOMED CT 2686818283 Resolved: Port-A-Cath in place / SNOMED CT 0676715712 Resolved: History of COVID-19 / SNOMED CT 0111718400 Resolved: Hydronephrosis of left kidney / SNOMED CT 56912246 Resolved: ESBL (extended spectrum beta-lactamase) producing bacteria infection / SNOMED CT 8443546195 Resolved: ESBL (extended spectrum beta-lactamase) producing bacteria infection / SNOMED CT 6625491116 Resolved: Cervicitis / SNOMED CT 442075180 Resolved: Mass of cervix / SNOMED CT 007913501 Resolved: Encounter for antineoplastic chemotherapy / SNOMED CT 007384753 Resolved: Tinnitus / SNOMED CT 793100017 Resolved: Complicated UTI (urinary tract infection) / SNOMED CT 161814663 Canceled: Cervical cancer / SNOMED CT 3843361476 Canceled: Dysuria / SNOMED CT 32489675 Canceled: Flank pain / SNOMED CT 759925515 Canceled: Hydronephrosis / SNOMED CT 53869368 Canceled: Cervical cancer / SNOMED CT 172160811 Canceled: Cervical ca / SNOMED CT 793911704 Canceled: Secondary amenorrhea / SNOMED CT 279049739 Canceled: Nephrostomy status / SNOMED CT 339211382, Active Problems (34) Acid reflux Acute kidney injury Anxiety Asthma Bilateral flank pain Bradycardia Cancer related pain Cervical cancer Chronic colitis Contact lenses Decreased appetite Dehydration Depression DVT prophylaxis Fall Frequent loose stools Glasses History of chemotherapy History of radiation therapy Hx of cervical cancer Hydronephrosis, left Left flank pain Marijuana smoker Moderate protein-calorie malnutrition Nausea and vomiting Nephrostomy status Obstructive uropathy Pain management Palliative care encounter Panic attack Premature menopause Pyelonephritis Seasonal allergy Tobacco use Histories Past Medical History: Resolved ESBL (extended spectrum beta-lactamase) producing bacteria infection (6716869860): Onset on 02/23/2023 at 32 years. Resolved on 05/07/2023 at 32 years. ESBL (extended spectrum beta-lactamase) producing bacteria infection (4064095872): Onset on 08/09/2022 at 31 years. Resolved on 01/02/2023 at 32 years. Comments: 01/02/2023 EST 10:02 SUMEET - JAMAL Pantoja Removed ESBL disease alert from 08/2022 per infection control protocol on 01/02/23. Mass of cervix (549648736): Resolved. Chronic kidney disease, stage 3 (moderate) (7170386982): Resolved. Hydronephrosis of left kidney (57213912): Resolved. Cervicitis (408207822): Resolved. Encounter for antineoplastic chemotherapy (813604717): Resolved. Port-A-Cath in place (2308267637): Resolved. Tinnitus (880311976): Resolved. Complicated UTI (urinary tract infection) (539947818): Resolved. History of COVID-19 (4482912112): Resolved. Family History: Cancer Sister COPD - Chronic obstructive pulmonary disease Mother Father Kidney stone Mother Asthma Mother Breast cancer Mother Hypertension Mother Heart disease Mother Substance abuse Father Alcohol abuse Father Stroke Grandparent Father Malignant tumor of ovary Sister Heart attack Mother Diabetes Grandparent Procedure history: Nephrostomy using fluoroscopic guidance ([id number]) on 06/16/2024 at 33 Years. Comments: 06/21/2024 11:46 Fany Beard LPN left JJ stent ([id number]) on 06/16/2024 at 33 Years. Comments: 06/21/2024 11:47 Fany Beard LPN left Nephrostomy tube ([id number]) on 10/05/2023 at 32 Years. Comments: 11/19/2023 9:37 Fany Sanchez LPN left side Nephrostomy with tube drainage ([id number]) in the month of 07/2023 at 32 Years. Comments: 06/13/2020 10:09 JAMAL Guaman left Nephrostomy with tube drainage ([id number]) on 01/10/2021 at 30 Years. Cannulation of Portacath ([id number]) in 2020 at 30 Years. Comments: 06/13/2020 10:09 JAMAL Guaman right JJ stent ([id number]) on 11/15/2020 at 29 Years. Radiation ([id number]) in the month of 06/2020 at 29 Years. Comments: 06/26/2020 6:12 GINNY Burton RN Mayi A via tandems and oviod X2 Cervical biopsy ([id number]) in 2019 at 29 Years. Comments: 04/12/2020 18:25 Eri Conte RN pt states she had a cervical biopsy done on 04/07/2020 at [facility] for a cervical mass Tumor cells, benign ([id number]) in 2001 at 11 Years. 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 done at [facility] in [place] Social History: Social & Psychosocial Habits Alcohol 02/16/2025Risk Assessment: Denies Alcohol Use 02/16/2025 Use: Past Type: Beer Frequency: 1-2 times per week Employment/School 02/14/2025 Status: Employed Substance Abuse 02/16/2025Risk Assessment: Denies Substance Abuse 02/16/2025 Use: Current Type: Marijuana Frequency: 1-2 times per month Tobacco 02/16/2025 Tobacco Use: 5-9 cigarettes (between 1, Vaping Product in Last 90 Type: Cigarettes Tobacco use per day: 5 Started at age: 19 Years Stopped at age: 32 Years Smokeless tobacco use: Never Exposure to Tobacco Smoke Lives in non-smoking home Comment: current vaping - 08/06/2024 07:22 - JAAML Ferrer Blanche Home/Environment 02/16/2025Risk Assessment: No Risk 02/16/2025 Living situation: Home/Independent Safe place to go: Yes Financial concerns: No Domestic Concerns None Lives In Mobile home Current Home Treatments None Special Services and Community Resources None Marital Status of Patient if Patient Independent Adult: Unmarried Nutrition/Health 02/16/2025Risk Assessment: No Risk 02/16/2025 Type of diet: Regular Appetite Poor Eating Difficulties None Sexual 02/16/2025 Sexually active: Yes First active at age: 18 Years Current partners: 1 Number of lifetime partners: 7 Self described orientation: Straight or heterosexual Other contraceptive use: condoms History of sexual abuse: No What is your current gender identity? (Check all that apply) Identifies as female Physical Examination Vital Signs (last 24 hrs) Last Charted Temp Ptjkehaz99.9 DegC (FEB 16 06:37) KJI304 mmHg (FEB 16 06:37) DBP79 mmHg (FEB 16 06:37) Measurements from flowsheet : Measurements 02/16/2025 6:37 EDT Height 167.6 cm Height in inches 66 inch(es) Admission Weight 110.7 kg Weight Lbs 243.5 lb Weight Method Actual [place] Body Weight 59.26 kg Type of Scale Used Bed scale Admission Body Mass Index 39.41 m2 General: Alert and oriented. Airway: Mallampati classification: II (soft palate, fauces, uvula visible). Dentition Evaluation: Intact. Respiratory: Lungs are clear to auscultation, Respirations are non-labored. Cardiovascular: Normal rate, Regular rhythm. Heart Sounds: Normal. Neurologic: Alert, Oriented. Review / Management Results review: Labs (Last four charted values) WBC 7.3(FEB 16) Hgb 14.6(FEB 16) Hct 43.1(FEB 16) Plt 296(FEB 16) . Documentation reviewed: Current records. Assessment and Plan [employer] of Anesthesiologists (ASA) physical status classification: Class II. Anesthetic Preoperative Plan Premedication: intravenous. Anesthetic technique: General. Induction: intravenously. Maintenance airway: Oral endotracheal tube. Postoperative pain management: Per surgeon. Informed consent: signed by patient. Digitally Signed by OLE MONK MD on 02/16/2025 08:05 AM [id number] History and physical note IR PREPROCEDURE H&P UPDATE IF A HISTORY AND PHYSICAL EXAMINATION HAS BEEN COMPLETED PRIOR TO ADMISSION TO THE HOSPITAL, AN UPDATED EXAMINATION MUST BE COMPLETED AND DOCUMENTED WITHIN 24 HOURS AFTER ADMISSION OR REGISTRATION BUT BEFORE A SURGICAL PROCEDURE. I have examined the patient, reviewed the H&P, and there are no changes unless noted below: _ The most recent H&P/Office Note was performed on 02/14/2025 and can be found in the [facility] ([employer]). Shantelle Herrera PA-C Interventional Radiology Pager: [phone] IR dept: x [phone] Available on itzat Digitally Signed by SHANTELLE HERRERA PA-C on 02/16/2025 07:50 AM Digitally Signed by MADELINE APARICIO MD on 02/16/2025 08:12 AM [id number] NoteORIGINAL PROCEDURE: IR REMOVAL OF TUNNELED CATHETER WITH PORT PUMP 12/22/2024 HISTORY: ORDERING SYSTEM PROVIDED HISTORY: Reason for Exam: port no longer being used TECHNIQUE: Maximum sterile barrier technique including hand hygiene, skin prep and sterile ultrasound technique utilized for procedure. Following informed consent, pause a confirm/time-out patient is placed in supine position on fluoroscopic table. Skin superficial to previously placed implant is intravenous access port was prepped and draped in sterile fashion. 1% lidocaine without epinephrine for local anesthesia. Skin incision was made over the reservoir previously placed implant is intravenous access port. Using sharp and blunt dissection, port was removed intact and in total. Pocket closed with 4 0 Vicryl and Dermabond. Dressing applied. Postprocedure images made. Patient tolerated procedure well. CONTRAST: None SEDATION: Provided by Department of Anesthesiology per patient request. See anesthesiology procedure note for further discussion. FLUOROSCOPY DOSE AND TYPE: Radiation Exposure Index: Kerma 1 mGy, 0.3 minutes fluoroscopy time for procedure DESCRIPTION OF PROCEDURE: Informed consent was obtained after a detailed explanation of the procedure including risks, benefits, and alternatives. Webster protocol was observed. Sterile gowns, masks, hats and gloves utilized for maximal sterile barrier. As above in technique section FINDINGS: Preprocedure image demonstrates previously placed implant is intravenous access port. Postprocedure image demonstrates no evidence of complication from port removal or residual port fragment. IMPRESSION: Removal of previously placed implanted central venous access port intact and in total as described. Interpreted by: Clotilde Randhawa DO Preliminary Report By: Clotilde Randhawa DO Electronically signed By Clotilde Randhawa DO Dictated Date: 12/22/2024 3:57:44 PM Prelim Date: 12/22/2024 3:59:55 PM Sign Date: 12/22/2024 3:59:55 PM Ordering Provider: [facility] [id number] NoteORIGINAL PROCEDURE: IR NEPHROSTOMY TUBE CHANGE 12/22/2024 HISTORY: ORDERING SYSTEM PROVIDED HISTORY: Reason for Exam: Maintenance exchange of left nephrostomy tube TECHNIQUE: Maximum sterile barrier technique including hand hygiene, skin prep and sterile ultrasound technique utilized for procedure. Following informed consent, pause a confirm/time-out patient is placed in the prone position on fluoroscopic table. Previously placed left nephrostomy tube and entry site were prepped and draped in sterile fashion. Antegrade nephrostogram performed. Guidewires advanced over which previously placed 12 Andorran nephrostomy tube was exchanged for a new 12 Andorran nephrostomy tube. Tip curled within left renal pelvis. Catheter affixed to the patient's skin. Patient tolerated procedure well. CONTRAST: 6 cc SEDATION: Provided by Department of Anesthesiology. See anesthesiology procedure note for further discussion. FLUOROSCOPY DOSE AND TYPE: Radiation Exposure Index: Kerma 1 mGy, 0.3 minutes fluoroscopy time for procedure DESCRIPTION OF PROCEDURE: Informed consent was obtained after a detailed explanation of the procedure including risks, benefits, and alternatives. Webster protocol was observed. Sterile gowns, masks, hats and gloves utilized for maximal sterile barrier. FINDINGS: Antegrade nephrostogram demonstrates satisfactory position of previously placed left nephrostomy tube. Postprocedure images demonstrate new nephrostomy catheter with tip curled within decompressed left renal pelvis. No complication suggested. IMPRESSION: Maintenance exchange of previously placed left nephrostomy tube for new 12 Andorran nephrostomy catheter via previously established tract with tip curled in decompressed left renal pelvis. No complication suggested. Interpreted by: Clotilde Randhawa DO Preliminary Report By: Clotilde Randhawa DO Electronically signed By Clotilde Randhawa DO Dictated Date: 12/22/2024 3:54:55 PM Prelim Date: 12/22/2024 3:57:35 PM Sign Date: 12/22/2024 3:57:35 PM Ordering Provider: [facility] [id number] Hospital Discharge instructions Patient Education 12/22/2024 12:16:43 Radiology- Nephrostomy/Nephroureteral Tube Exchange 12/26/2022(CUSTOM) SAVANNAH Nephrostomy/Nephroureteral Tube Exchange Discharge Instructions Interventional Radiology [facility] Services [address] [place] [address] The procedure that you had done today is called a nephrostomy tube exchange. This is a procedure toreplace a pre-existing tube that drains the urine from the kidney in order to prevent pain, infection and kidney damage. This should occur every 6-12 weeks, depending on your physician's orders and personal condition. Your urine may be blood tinged, in the bag and from regular urination, for up to 48 hours. If you had a nephroureteral tube exchange today, then this procedure is to replace a pre-existing tube that goes from your back into the kidney and down the ureter to the bladder. This tube may be either capped or have a dependent bag attached like a nephrostomy tube. Please follow these instructions: DIET: Resume previous diet as tolerated ACTIVITY: Wear loose, comfortable clothing. Make sure your tube is secure at all times. Avoid tugging at the tube. PAIN CONTROL: Mild back discomfort on the side of the tube placement may occur for the first 24 hours. You may experience the feeling of the need to urinate. Zhbh-isn-lsovfav pain medication should be used for pain or discomfort. Please check with the physician who sent you for this procedure for their specific recommendations. If your pain is not relieved or becomes more severe, notify the physician who sent you for this procedure. IF YOU RECEIVED CONSCIOUS SEDATION (IV SEDATION) & YOU ARE DISCHARGED THE SAME DAY You must have someone drive you home when you leave the hospital. For 24 hours after your procedure, do not do anything where you need to make important decisions. This includes operating machinery, signing important documents, etc. MEDICATION: Please resume on . NEPHROSTOMY CARE: Wash your hands well with soap and water before and after caring for your nephrostomy tube. Keep the skin around the nephrostomy tube dry. If the area does get wet, dry the skin completely. Change the dressing every week, or as needed if it is leaking or the dressing becomes saturated. Keep all the ports of the tube and drainage bag as clean as possible to prevent infection. Empty the drainage bags often via the spout at the bottom of the bag. Turn clockwise. Avoid overfilling. Always empty the bag before bed. Some patients will be required to flush their tubes, please check with ordering physician for instructions and supplies. (You do not need to do this unless specifically instructed by your healthcare provider). TUBE PROBLEMS Call Interventional Radiology IMMEDIATELY if the tube falls out. Call Interventional Radiology if you notice decreased or no urine output or if urine leaks from thedressing site from tube. Call your Urologist if any abnormal bleeding, foul odor or drainage, redness, swelling, worsening pain, or fever above 102F. If the catheter falls out, it can be replaced by the doctor ideally within 24 hours. Do not attemptto put the tube back in yourself. BATHING Avoid swimming. You may shower with the nephrostomy bag attached to the skin, sit in a shallow bath, or sponge bathe while the catheter is in place. Be sure to keep the water level below the dressingwhen tub bathing. Please change your dressing if it gets wet. SPECIFIC INSTRUCTIONS TO CHANGE NEPHROSTOMY TUBE DRESSING Supplies needed: Soap and water Clean, dry towel Nephrostomy bag Clean adhesive dressing Gauze Because the nephrostomy tube is located on your back, you will need someone to assist you in changing the dressing. Wash hands well Remove the old dressing, peeling the edges slowly from skin. As the dressing is pulled away from the skin, support the nephrostomy tube with your free hand to prevent placing tension on the tube and accidentally pulling it out. Wash the area around the nephrostomy tube with soap and water. Gently pat the area dry. Need 2 layers of gauze. One layer in between the skin and the tube. Second layer of gauze goes overthe tube. Then place the clean adhesive dressing over the gauze. Supplies may be obtained at: [facility] [address] [facility] [address] [facility] Any questions or concerns, please contact your physician or Interventional Radiology at [phone] from 8-4:30pm Friday-Friday. If you do not have a follow up appointment scheduled at the time of discharge, please call Interventional Radiology at the number listed above. 12/22/2024 12:16:34 Radiology- Port Removal 08/13/2024(CUSTOM) SAVANNAH Port Removal Discharge Instructions Interventional Radiology [facility] [address] [place] [address] Your physician has requested that you have your port removed. The port is usually removed from the upper chest and under the skin. DIET: Resume your regular diet as tolerated. Special instructions: ACTIVITY: Avoid strenuous activity for 3 days. You must keep the site dry for 3 days. Therefore, we recommend that you wash up at the sink during this time. After 3 days, you may shower. Do not submerge the site in the bath tub, swimming pool, or hot tub for 7 days. Special instructions: PAIN CONTROL: Orbo-jix-pjpzwml pain medication should be used for pain or discomfort. Please check with the physician who sent you for this procedure for their specific recommendations. MEDICATIONS: Please resume on DRESSING: Keep incision site dry for 3 days. Remove the dressing after three days and leave it open to air. Do not remove the steri-strips. (They will come off on their own in time.) Special instructions: WHEN TO SEEK MEDICAL CARE: You should contact your physician or visit your local emergency room promptly if any of the following occur: You develop any signs of infection around the insertion site (redness, swelling, increased pain, bleeding, or unusual drainage). You develop unexplained fever or chills. Excessive bleeding or bruising If you experience any of these issues during the first 24 hours, please follow the instruction below: 8:00 am- 5:00 pm call [phone] After 24 hours, contact the physician who ordered this procedure for you. Additional Instructions: Follow Up Care 12/09/2024 13:25:55 With:OLE PACE MD Address: [address] [place] [address] [place] [address]- [phone] When: Unknown Comments:Call with any questions or concerns [facility] 02-19-2025 Evaluation + Plan noteExtracted from: Title:Preprocedure HP Author:AMBROSIO LOERA PA-C Date:12/22/24 IR PREPROCEDURE H&P UPDATE IF A HISTORY AND PHYSICAL EXAMINATION HAS BEEN COMPLETED PRIOR TO ADMISSION TO THE HOSPITAL, AN UPDATED EXAMINATION MUST BE COMPLETED AND DOCUMENTED WITHIN 24 HOURS AFTER ADMISSION OR REGISTRATION BUT BEFORE A SURGICAL PROCEDURE. I have examined the patient, reviewed the H&P, and there are no changes unless noted below: _ The most recent H&P/Office Note was performed on 12/13/24 and can be found in the [facility] ([employer]). Lacey Loera PA-C Interventional Radiology IR Dept [id number] Available on [employer] Future Appointments Appointment Date:01/05/2025 12:30:00 PM Scheduled Provider: Location:IR Appointment Type:IR Procedure Follow Up Appointment Date:01/17/2025 03:00:00 PM Scheduled Provider:OLE PACE MD Location:[place] Pall[facility] Appointment Type:PALL OV Follow Up Appointment Date:02/16/2025 08:00:00 AM Scheduled Provider: Location:IR Appointment Type:IR Nephrostomy Exchange Appointment Date:05/18/2025 11:20:00 AM Scheduled Provider: Location:[facility] Appointment Type:SO OV Follow Up Future Scheduled Tests Laboratory* Clostridium difficile (PCR) 03/04/24 * Ova + Parasite Exam 03/04/24 * hCG, quantitative (AH/AM Only) 11/15/24 Radiology* IR Nephrostomy Exchange 02/16/25 * IR Procedure Follow Up 01/05/25 [facility] 02-19-2025 Summary of episode note Discharge Instructions Thank you for allowing [facility] to assist you with your healthcare needs. The following is importantdischarge information regarding your hospital visit. Your Care Team OLE PACE MD What to do next Scheduled Follow-Up Appointments Appointment Type When With Where Contact Information StatusIR Procedure Follow Up 01/05/2025 12:30 PM EST IR Confirmed PALL OV Follow Up 01/17/2025 03:00 PM EDT OLE PACE MD [facility] Confirmed IR Nephrostomy Exchange 02/16/2025 08:00 AM EDT IR Confirmed SO OV Follow Up 05/18/2025 11:20 AM EDT [facility] [address] [place] [id number] Confirmed Follow Up Appointments Follow Up with OLE PACE MD Where:[address] [place] [phone] Additional Information: Call with any questions or concerns Allergies Haldol Tongue swelling Oranges Tongue swelling, Difficulty breathing penicillin Hives Medications Please ask your primary doctor or pharmacist before taking any other medication not listed, including over the counter drugs, herbal medications, vitamins and or supplements as they may interact withyour home medications. What How Much When Why Instructions Last Dose Unchanged acetaminophen (Tylenol Extra Strength 500 mg oral tablet) 2 tab(s) by mouth Every 4 hours as needed for as needed for pain Unchanged albuterol (albuterol MDI (90 mcg/ inh) CFC free inhalation aerosol) 2 puff(s) by inhalation Every 6 hours as needed for as needed for wheezing Unchanged buprenorphine (buprenorphine 10 mcg/ hr transdermal film, extended release) 1 patch(es) Transdermal Every week Chronic pain History of cervical cancer please call my office if PA needed Unchanged escitalopram (Lexapro 20 mg oral tablet) 1 tab(s) by mouth Once a day Unchanged ibuprofen (Motrin IB 200 mg oral tablet) 2 tab(s) by mouth Every 4 hours as needed for as needed for pain Unchanged LORazepam (Ativan 1 mg oral tablet) 1 tab(s) by mouth Three (3) times a day as needed for as needed for anxiety Palliative care patient THO (generalized anxiety disorder) frequency increased please fill after Unchanged ondansetron (ondansetron 4 mg oral tablet) 1 tab(s) by mouth Two (2) times a day TAKE ONE TABLET BY MOUTH EVERY 8 HOURS NEEDED FOR NAUSEA AND VOMITING Unchanged oxyCODONE (oxyCODONE 5 mg oral tablet ( IMMEDIATE release )) 2 tab(s) by mouth Every 6 hours as needed for for pain Cervical ca Cancer related pain Please take this list to your next doctor s visit. Bring all medications you take, including over the counter medications, herbals and other supplements with you to your doctor s visit. Patients and families are reminded to discard old lists and to update any records with all medication providers or retail pharmacies. Education Materials SAVANNAH Nephrostomy/Nephroureteral Tube Exchange Discharge Instructions Interventional Radiology [facility] [address] [place] [address] The procedure that you had done today is called a nephrostomy tube exchange. This is a procedure toreplace a pre-existing tube that drains the urine from the kidney in order to prevent pain, infection and kidney damage. This should occur every 6-12 weeks, depending on your physician's orders and personal condition. Your urine may be blood tinged, in the bag and from regular urination, for up to 48 hours. If you had a nephroureteral tube exchange today, then this procedure is to replace a pre-existing tube that goes from your back into the kidney and down the ureter to the bladder. This tube may be either capped or have a dependent bag attached like a nephrostomy tube. Please follow these instructions: DIET: Resume previous diet as tolerated ACTIVITY: Wear loose, comfortable clothing. Make sure your tube is secure at all times. Avoid tugging at the tube. PAIN CONTROL: Mild back discomfort on the side of the tube placement may occur for the first 24 hours. You may experience the feeling of the need to urinate. Wucq-znd-bffhzlj pain medication should be used for pain or discomfort. Please check with the physician who sent you for this procedure for their specific recommendations. If your pain is not relieved or becomes more severe, notify the physician who sent you for this procedure. IF YOU RECEIVED CONSCIOUS SEDATION (IV SEDATION) & YOU ARE DISCHARGED THE SAME DAY You must have someone drive you home when you leave the hospital. For 24 hours after your procedure, do not do anything where you need to make important decisions. This includes operating machinery, signing important documents, etc. MEDICATION: Please resume on . NEPHROSTOMY CARE: Wash your hands well with soap and water before and after caring for your nephrostomy tube. Keep the skin around the nephrostomy tube dry. If the area does get wet, dry the skin completely. Change the dressing every week, or as needed if it is leaking or the dressing becomes saturated. Keep all the ports of the tube and drainage bag as clean as possible to prevent infection. Empty the drainage bags often via the spout at the bottom of the bag. Turn clockwise. Avoid overfilling. Always empty the bag before bed. Some patients will be required to flush their tubes, please check with ordering physician for instructions and supplies. (You do not need to do this unless specifically instructed by your healthcare provider). TUBE PROBLEMS Call Interventional Radiology IMMEDIATELY if the tube falls out. Call Interventional Radiology if you notice decreased or no urine output or if urine leaks from thedressing site from tube. Call your Urologist if any abnormal bleeding, foul odor or drainage, redness, swelling, worsening pain, or fever above 102F. If the catheter falls out, it can be replaced by the doctor ideally within 24 hours. Do not attemptto put the tube back in yourself. BATHING Avoid swimming. You may shower with the nephrostomy bag attached to the skin, sit in a shallow bath, or sponge bathe while the catheter is in place. Be sure to keep the water level below the dressingwhen tub bathing. Please change your dressing if it gets wet. SPECIFIC INSTRUCTIONS TO CHANGE NEPHROSTOMY TUBE DRESSING Supplies needed: Soap and water Clean, dry towel Nephrostomy bag Clean adhesive dressing Gauze Because the nephrostomy tube is located on your back, you will need someone to assist you in changing the dressing. Wash hands well Remove the old dressing, peeling the edges slowly from skin. As the dressing is pulled away from the skin, support the nephrostomy tube with your free hand to prevent placing tension on the tube and accidentally pulling it out. Wash the area around the nephrostomy tube with soap and water. Gently pat the area dry. Need 2 layers of gauze. One layer in between the skin and the tube. Second layer of gauze goes overthe tube. Then place the clean adhesive dressing over the gauze. Supplies may be obtained at: [facility] [address] [facility] [address] [facility] Any questions or concerns, please contact your physician or Interventional Radiology at [phone] from 8-4:30pm Friday-Friday. If you do not have a follow up appointment scheduled at the time of discharge, please call Interventional Radiology at the number listed above. SAVANNAH Port Removal Discharge Instructions Interventional Radiology [facility] Imaging Services [address] [place] [address] Your physician has requested that you have your port removed. The port is usually removed from the upper chest and under the skin. DIET: Resume your regular diet as tolerated. Special instructions: ACTIVITY: Avoid strenuous activity for 3 days. You must keep the site dry for 3 days. Therefore, we recommend that you wash up at the sink during this time. After 3 days, you may shower. Do not submerge the site in the bath tub, swimming pool, or hot tub for 7 days. Special instructions: PAIN CONTROL: Ghov-pqn-tpebunz pain medication should be used for pain or discomfort. Please check with the physician who sent you for this procedure for their specific recommendations. MEDICATIONS: Please resume on DRESSING: Keep incision site dry for 3 days. Remove the dressing after three days and leave it open to air. Do not remove the steri-strips. (They will come off on their own in time.) Special instructions: WHEN TO SEEK MEDICAL CARE: You should contact your physician or visit your local emergency room promptly if any of the following occur: You develop any signs of infection around the insertion site (redness, swelling, increased pain, bleeding, or unusual drainage). You develop unexplained fever or chills. Excessive bleeding or bruising If you experience any of these issues during the first 24 hours, please follow the instruction below: 8:00 am- 5:00 pm call [phone] After 24 hours, contact the physician who ordered this procedure for you. Additional Instructions: Additional Information VACCINATE! IT SAVES LIVES! Members of the community who have not yet received the COVID-19 vaccine and would like to receive it can visit one of [facility] vaccine clinics. There are many vaccine clinic locations within the [facility]. For locations and available times, please visit [email or web address].[place].gov/. It is important to note that some COVID mobile vaccine clinics are held outdoors and may be canceled in rainy or stormy conditions. To learn more about pediatric vaccinations (ages 5-11), we invite you to visit the [facility] webpage. https://www.[email or web address].org/pages/[email or web address]-Fghri-Eaasfuxxetq-Kbncifvwhg-Pwrjh-Dwc stions.htmlTo learn more about the COVID-19 vaccine, we invite you to visit the CDC website for a list of frequently asked questions.https://www.cdc.gov/coronavirus/2019-ncov/vaccines/faq.html [facility] Patient Portal Access Instructions: Stay connected with your healthcare team and access your personal medical information anytime with the [facility] Patient Portal. Please follow the directions below to create your [facility] account: 1.Access the email account you provided upon registration to the hospital/physician office.2.Look for an invitation email from [facility].3.Open the email and access the invitation link: AcceptInvitation to [employer].4.Fill in the required quintero to create your account. To access your account, visit [email or web address]. Click the blue button labeled Access Patient Portal and then log in with the username and password that you created in the steps above. You will be able to view your test results, lab results, a summary of your visits, upcoming appointments and more. There is also a convenient messaging option where you can send secure messages to your p Dextrysvider. In addition, you will have the ability to download any documents or summaries to your computer and/or send the information securely to a physician. Remember that your healthcare information is confidential, so carefully consider who you will allowto register on the [employer] Patient Portal for access to your information. You can also access the [employer] Patient Portal on the ITegr[employer] Anywhere joya. Simply click on Patient Portal and then log into your account. If you would like to receive a full copy of your medical records, please contact the [facility] Medical Records Department by calling [phone], Friday through Friday between 8 a.m. and 4:30 p.m. HOW TO SAFELY DISPOSE OF PRESCRIPTION MEDICATIONS Please use one of the following methods to safely dispose of your unused medications. 1.Use a drug disposal kit: the drug disposal pouch allows you to safely discard your old and unuseddrugs. Ask your nurse to give you one when you are discharged.2.Visit a local take-back location: Many local pharmacies and police departments have programs that collect old and unwanted prescriptiondrugs. Call your local pharmacy or go to http://Wishabi.ConsumerBell/6P9Gw2w to find one close to you.3.Make use of household items: Use cat litter or old coffee grounds to dispose medications if other options arenot available. Mix your drugs with these household products, seal them in an airtight container andthrow it into the garbage. Call [facility]: [phone] to be sure your drugs can be disposed of in this way. Some medicines may require a different approach.4.Never flush your medications down the toilet. IF YOU HAVE BEEN PRESCRIBED AN OPIOID FOR PAIN If you have been prescribed an opioid (such as hydrocodone, oxycodone or morphine), it is critical to understand the possible side effects and risks of opioid pain medications. Even when taken as directed, opioids can have several side effects including: Tolerance, meaning you might need to take more of a medication for the same pain relief. Nausea, vomiting and/or constipation. Sleepiness, dizziness, dry mouth, confusion, depression or itching. Physical dependence, meaning you have withdrawal symptoms when a medication is stopped, can develop within a few days. KNOW YOUR RESPONSIBILITIES It is important to know exactly how much and how often to take the opioid pain medications you are prescribed. Never take opioids in higher amounts or more often than prescribed. Do not combine opioids with alcohol or other drugs that cause drowsiness, such as benzodiazepines, also known as benzos, including diazepam and alprazolam, muscle relaxants or sleep aids. Never sell or share prescription opioids. This is illegal. Store opioids in a secure place and out of reach of others (including children, family, friends and visitors). The last page of this document has been signed and retained as a CHART COPY. Signatures Patient Education Materials Radiology- Nephrostomy/Nephroureteral Tube Exchange 12/26/2022(CUSTOM) Radiology- Port Removal 08/13/2024(CUSTOM) Medication Leaflets My discharge plan and instructions have been reviewed and explained to me and I,LORI NAVASHAEL Austen understand my current condition and have read and understand these discharge instructions. I have received a written copy of the plan/instructions. If I have questions, I am aware that I should contact my doctor. 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 Following informed consent, pause a confirm/time-out patient is placed in the prone position on fluoroscopic table. Previously placed left nephrostomy tube and entry site were prepped and draped in sterile fashion. Antegrade nephrostogram performed. Guidewires advanced over which previously placed 12 Andorran nephrostomy tube was exchanged for a new 12 Andorran nephrostomy tube. Tip curled within left renal pelvis. Catheter affixed to the patient's skin. Patient tolerated procedure well. CONTRAST: 6 cc SEDATION: Provided by Department of Anesthesiology. See anesthesiology procedure note for further discussion. FLUOROSCOPY DOSE AND TYPE: Radiation Exposure Index: Kerma 1 mGy, 0.3 minutes fluoroscopy time for procedure DESCRIPTION OF PROCEDURE: Informed consent was obtained after a detailed explanation of the procedure including risks, benefits, and alternatives. Webster protocol was observed. Sterile gowns, masks, hats and gloves utilized for maximal sterile barrier. FINDINGS: Antegrade nephrostogram demonstrates satisfactory position of previously placed left nephrostomy tube. Postprocedure images demonstrate new nephrostomy catheter with tip curled within decompressed left renal pelvis. No complication suggested. IMPRESSION: Maintenance exchange of previously placed left nephrostomy tube for new 12 Andorran nephrostomy catheter via previously established tract with tip curled in decompressed left renal pelvis. No complication suggested. Interpreted by: Clotilde Randhawa DO Preliminary Report By: Clotilde Randhawa DO Electronically signed By Clotilde Randhawa DO Dictated Date: 12/22/2024 3:54:55 PM Prelim Date: 12/22/2024 3:57:35 PM Sign Date: 12/22/2024 3:57:35 PM Ordering Provider: NASRIN [facility]02-19-2025 Procedure note Date of Service INTERVENTIONAL RADIOLOGY POST PROCEDURE NOTE Pre-Procedure Diagnosis: [left nephrostomy tube maintenance exchange, iv access port removal / no further need for port] Post Procedure Diagnosis: Same. Pathology Supervisor: Dr. Clotilde Randhawa DO Procedure: [left nephrostomy tube exchange, iv access port removal ] Anesthesia: [1% lidocaine without epinephrine] Findings: [previously placed port removed in tact and in total, left nephrostomy tube exchanged fornew 12 fr neph tube via previously established tract. no complication ] Estimated Blood Loss: Minimal (Less Than 10 mL). [ ] Specimen: _previously placed port removed in tact and in total. Complications: None. Full report with procedural details to follow and will become available under the Radiology tab of Results Review. Please contact for any questions or concerns. _ Digitally Signed by CLOTILDE RANDHAWA DO on 12/22/2024 11:10 AM [facility] [id number] Note* Exam Date Time Procedure Performing Provider Status 12/22/24 10:40 AM IR Port Removal CLOTILDE RANDHAWA DO; Auth (Verified) [id number] ORIGINAL PROCEDURE: IR REMOVAL OF TUNNELED CATHETER WITH PORT PUMP 12/22/2024 HISTORY: ORDERING SYSTEM PROVIDED HISTORY: Reason for Exam: port no longer being used TECHNIQUE: Maximum sterile barrier technique including hand hygiene, skin prep and sterile ultrasound technique utilized for procedure. Following informed consent, pause a confirm/time-out patient is placed in supine position on fluoroscopic table. Skin superficial to previously placed implant is intravenous access port was prepped and draped in sterile fashion. 1% lidocaine without epinephrine for local anesthesia. Skin incision was made over the reservoir previously placed implant is intravenous access port. Using sharp and blunt dissection, port was removed intact and in total. Pocket closed with 4 0 Vicryl and Dermabond. Dressing applied. Postprocedure images made. Patient tolerated procedure well. CONTRAST: None SEDATION: Provided by Department of Anesthesiology per patient request. See anesthesiology procedure note for further discussion. FLUOROSCOPY DOSE AND TYPE: Radiation Exposure Index: Kerma 1 mGy, 0.3 minutes fluoroscopy time for procedure DESCRIPTION OF PROCEDURE: Informed consent was obtained after a detailed explanation of the procedure including risks, benefits, and alternatives. Webster protocol was observed. Sterile gowns, masks, hats and gloves utilized for maximal sterile barrier. As above in technique section FINDINGS: Preprocedure image demonstrates previously placed implant is intravenous access port. Postprocedure image demonstrates no evidence of complication from port removal or residual port fragment. IMPRESSION: Removal of previously placed implanted central venous access port intact and in total as described. Interpreted by: Clotilde Randhawa DO Preliminary Report By: Clotilde Randhawa DO Electronically signed By Clotilde Randhawa DO Dictated Date: 12/22/2024 3:57:44 PM Prelim Date: 12/22/2024 3:59:55 PM Sign Date: 12/22/2024 3:59:55 PM Ordering Provider: NASRIN ISABEL [facility] [id number] History and physical note IR PREPROCEDURE H&P UPDATE IF A HISTORY AND PHYSICAL EXAMINATION HAS BEEN COMPLETED PRIOR TO ADMISSION TO THE HOSPITAL, AN UPDATED EXAMINATION MUST BE COMPLETED AND DOCUMENTED WITHIN 24 HOURS AFTER ADMISSION OR REGISTRATION BUT BEFORE A SURGICAL PROCEDURE. I have examined the patient, reviewed the H&P, and there are no changes unless noted below: _ The most recent H&P/Office Note was performed on 12/13/24 and can be found in the [facility] Medical Records ([employer]). Lacey Loera PA-C Interventional Radiology IR Dept [id number] Available on [employer] Digitally Signed by LACEY LOERA PA-C on 12/22/2024 09:52 AM Digitally Signed by CLOTILDE RANDHAWA DO on 12/22/2024 12:44 PM [facility] [id number] Anesthesiology Consult note Patient: LALY NAVAS Age: 33 years Sex: Female : 1990 Associated Diagnoses: None Author: NOEMI AYALA MD Preoperative Information NPO > 8 hrs Anesthesia history Patient's history: negative. Family's history: negative. History of Present Illness The patient presents for preanesthesia evaluation with 33yo female with PMH of cervical cancer s/p chemo/radiation, anxiety/depression, mild asthma, obstructive uropathy s/p nephrostomy tube placement presenting for nephrostomy tube exchange. Patient denies current CP, SOB, NVD, GERD symptoms. METs>4.. Review of Systems Ear/Nose/Mouth/Throat: Negative except as documented in history of present illness. Respiratory: Negative except as documented in history of present illness. Cardiovascular: Negative except as documented in history of present illness. Gastrointestinal: Negative except as documented in history of present illness. Genitourinary: Negative except as documented in history of present illness. Endocrine: Negative except as documented in history of present illness. Musculoskeletal: Negative except as documented in history of present illness. Integumentary: Negative except as documented in history of present illness. Neurologic: Negative except as documented in history of present illness. Health Status Allergies: Allergic Reactions (Selected) Severity Not Documented Haldol- Tongue swelling. Oranges- Tongue swelling and difficulty breathing. Penicillin- Hives., Allergies (3) ActiveSeverityReaction penicillinHives OrangesDifficulty breathing, Tongue swelling HaldolTongue swelling Current medications: (Selected) Inpatient Medications Ordered lidocaine 1% preservative-free injectable solution: 2.5 mg, 0.25 mL, Intradermal, prep pharm lidocaine 1% preservative-free injectable solution: 2.5 mg, 0.25 mL, Intradermal, prep pharm Prescriptions Prescribed Ativan 1 mg oral tablet: 1 mg, 1 tab(s), Oral, TID, frequency increased please fill after 10/05/24, PRN: as needed for anxiety, 90 tab(s), 2 Refill(s) Lexapro 20 mg oral tablet: 20 mg, 1 tab(s), Oral, qDay, 30 tab(s), 5 Refill(s) buprenorphine 10 mcg/hr transdermal film, extended release: 1 patch(es), Transdermal, qWeek, pleasecall my office if PA needed, 4 patch(es), 0 Refill(s) ondansetron 4 mg oral tablet: 4 mg, 1 tab(s), Oral, BID, TAKE ONE TABLET BY MOUTH EVERY 8 HOURS NEEDED FOR NAUSEA AND VOMITING, 60 tab(s), 2 Refill(s) oxyCODONE 5 mg oral tablet ( IMMEDIATE release ): 10 mg, 2 tab(s), Oral, q6h, PRN: for pain, 240 tab(s), 0 Refill(s) Documented Medications Documented Motrin IB 200 mg oral tablet: 400 mg, 2 tab(s), Oral, q4h, PRN: as needed for pain, 0 Refill(s) Tylenol Extra Strength 500 mg oral tablet: 1,000 mg, 2 tab(s), Oral, q4h, PRN: as needed for pain albuterol MDI (90 mcg/inh) CFC free inhalation aerosol: 2 puff(s), Inhalation, q6h, PRN: as needed for wheezing, 8.5 gram(s), 0 Refill(s), No qualifying data available Problem list: Medical Anxiety / SNOMED CT 24319033 / Confirmed Asthma / SNOMED CT 539503750 / Confirmed Decreased appetite / SNOMED CT 955845942 / Confirmed Dehydration / SNOMED CT 09147925 / Confirmed Bilateral flank pain / SNOMED CT 462706199 / Confirmed History of chemotherapy / SNOMED CT 6900648736 / Confirmed Hx of cervical cancer / SNOMED CT 9847046346 / Confirmed History of radiation therapy / SNOMED CT 8398653788 / Confirmed Hydronephrosis, left / SNOMED CT 91302459 / Confirmed Acute kidney injury / SNOMED CT 07745442 / Confirmed Left flank pain / SNOMED CT 854672555 / Confirmed Cervical cancer / SNOMED CT 136760055 / Confirmed Moderate protein-calorie malnutrition / SNOMED CT 120775973 / Confirmed Nausea and vomiting / SNOMED CT 68117002 / Confirmed Cancer related pain / SNOMED CT 5964928843 / Confirmed DVT prophylaxis / SNOMED CT 847207121 / Confirmed Palliative care encounter / SNOMED CT 562758315 / Confirmed Premature menopause / SNOMED CT 2936564445 / Confirmed Pyelonephritis / SNOMED CT 99697811 / Confirmed Nephrostomy status / SNOMED CT 317014788 / Confirmed Obstructive uropathy / SNOMED CT 14913137 / Confirmed Resolved: Chronic kidney disease, stage 3 (moderate) / SNOMED CT 8841316132 Resolved: Port-A-Cath in place / SNOMED CT 7741908138 Resolved: History of COVID-19 / SNOMED CT 9493128509 Resolved: Hydronephrosis of left kidney / SNOMED CT 90526743 Resolved: ESBL (extended spectrum beta-lactamase) producing bacteria infection / SNOMED CT 6972931562 Resolved: ESBL (extended spectrum beta-lactamase) producing bacteria infection / SNOMED CT 1967231830 Resolved: Cervicitis / SNOMED CT 046632475 Resolved: Mass of cervix / SNOMED CT 743352013 Resolved: Encounter for antineoplastic chemotherapy / SNOMED CT 316040338 Resolved: Tinnitus / SNOMED CT 116776879 Resolved: Complicated UTI (urinary tract infection) / SNOMED CT 947197021 Canceled: Cervical cancer / SNOMED CT 1484558333 Canceled: Dysuria / SNOMED CT 74117501 Canceled: Flank pain / SNOMED CT 497772817 Canceled: Hydronephrosis / SNOMED CT 20388148 Canceled: Cervical cancer / SNOMED CT 604586400 Canceled: Cervical ca / SNOMED CT 245443781 Canceled: Secondary amenorrhea / SNOMED CT 071302177 Canceled: Nephrostomy status / SNOMED CT 939568389, Active Problems (33) Acid reflux Acute kidney injury Anxiety Asthma Bilateral flank pain Bradycardia Cancer related pain Cervical cancer Chronic colitis Contact lenses Decreased appetite Dehydration Depression DVT prophylaxis Fall Frequent loose stools Glasses History of chemotherapy History of radiation therapy Hx of cervical cancer Hydronephrosis, left Left flank pain Marijuana smoker Moderate protein-calorie malnutrition Nausea and vomiting Nephrostomy status Obstructive uropathy Pain management Palliative care encounter Panic attack Premature menopause Pyelonephritis Seasonal allergy Histories Past Medical History: Resolved ESBL (extended spectrum beta-lactamase) producing bacteria infection (6051330776): Onset on 02/23/2023 at 32 years. Resolved on 05/07/2023 at 32 years. ESBL (extended spectrum beta-lactamase) producing bacteria infection (7234589762): Onset on 08/09/2022 at 31 years. Resolved on 01/02/2023 at 32 years. Comments: 01/02/2023 SUMEET 10:02 JAMAL Haynes Removed ESBL disease alert from 08/2022 per infection control protocol on 01/02/23. Mass of cervix (886062990): Resolved. Chronic kidney disease, stage 3 (moderate) (6314540310): Resolved. Hydronephrosis of left kidney (26534829): Resolved. Cervicitis (135876660): Resolved. Encounter for antineoplastic chemotherapy (628424981): Resolved. Port-A-Cath in place (0656602935): Resolved. Tinnitus (665396150): Resolved. Complicated UTI (urinary tract infection) (940713405): Resolved. History of COVID-19 (1064817635): Resolved. Procedure history: Nephrostomy using fluoroscopic guidance (3625874830) on 06/16/2024 at 33 Years. Comments: 06/21/2024 11:46 Fany Beard LPN left JJ stent ([id number]) on 06/16/2024 at 33 Years. Comments: 06/21/2024 11:47 Fany Beard LPN left Nephrostomy tube (425883491) on 10/05/2023 at 32 Years. Comments: 11/19/2023 9:37 Fany Sanchez LPN left side Nephrostomy with tube drainage (67921541) in the month of 07/2023 at 32 Years. Comments: 06/13/2020 10:09 JAMAL Guaman left Nephrostomy with tube drainage (08193372) on 01/10/2021 at 30 Years. Cannulation of Portacath (344385167) in 2020 at 30 Years. Comments: 06/13/2020 10:09 JAMAL Guaman right JJ stent ([id number]) on 11/15/2020 at 29 Years. Radiation (025648211) in the month of 06/2020 at 29 Years. Comments: 06/26/2020 6:12 JAMAL Braswell via tandems and oviod X2 Cervical biopsy ([id number]) in 2019 at 29 Years. Comments: 04/12/2020 18:25 Eri Conte RN pt states she had a cervical biopsy done on 04/07/2020 at [facility] for a cervical mass Tumor cells, benign (88012550) in 2002 at 11 Years. 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 done at [facility] in [place] Social History: Social & Psychosocial Habits Alcohol 12/22/2024Risk Assessment: Denies Alcohol Use 12/22/2024 Use: Past Type: Beer Frequency: 1-2 times per week Employment/School 12/13/2024 Status: Employed Substance Abuse 12/22/2024Risk Assessment: Denies Substance Abuse 12/22/2024 Use: Current Type: Marijuana Frequency: Daily Tobacco 12/22/2024 Tobacco Use: Former smoker, quit more, Vaping Product in Last Type: Electronic Cigarettes ([place] Tobacco use per day: 5 Started at age: 19 Years Stopped at age: 32 Years Smokeless tobacco use: Never Exposure to Tobacco Smoke Lives in non-smoking home Comment: current vaping - 08/06/2024 07:22 - JAMAL Ferrer Blanche Home/Environment 12/22/2024Risk Assessment: No Risk 12/22/2024 Living situation: Home/Independent Safe place to go: Yes Financial concerns: No Domestic Concerns None Lives In Mobile home Current Home Treatments None Special Services and Community Resources None Marital Status of Patient if Patient Independent Adult: Unmarried Nutrition/Health 12/22/2024Risk Assessment: No Risk 12/22/2024 Type of diet: Regular Appetite Poor Eating Difficulties None Sexual 12/22/2024 Sexually active: Yes First active at age: 18 Years Current partners: 1 Number of lifetime partners: 7 Self described orientation: Straight or heterosexual Other contraceptive use: condoms History of sexual abuse: No What is your current gender identity? (Check all that apply) Identifies as female Physical Examination Vital Signs (last 24 hrs) Last Charted Temp Lzqrxpyo32.4 DegC (DEC 22 08:08) Heart Rate ApicalL 57 bpm (DEC 22 08:08) BKB885 mmHg (DEC 22 08:08) DBP80 mmHg (DEC 22 08:08) Measurements from flowsheet : Measurements 12/22/2024 8:08 EST Height 167.6 cm Height in inches 66 inch(es) Admission Weight 53.6 kg Weight Lbs 117.9 lb [place] Body Weight 59.26 kg Admission Body Mass Index 19.08 m2 General: Alert and oriented, No acute distress. Airway: Normal temporomandibular joint mobility, Normal mouth, Normal neck range of motion. Mallampati classification: I (soft palate, fauces, uvula, pillars visible). Dentition Evaluation: Intact, Own teeth. Respiratory: Lungs are clear to auscultation. Cardiovascular: Normal rate, Regular rhythm. Heart Sounds: Normal. Neurologic: Alert, Oriented, No focal deficits. Review / Management Results review: No qualifying data available . Documentation reviewed: Current records. Assessment and Plan [employer] Anesthesiologists (ASA) physical status classification: Class III. Anesthetic Preoperative Plan Premedication: intravenous. Anesthetic technique: General. Induction: intravenously. Maintenance airway: Oral endotracheal tube. Postoperative pain management: Per surgeon. Risks discussed: nausea, vomiting, sore throat, dental injury, hypotension, allergic reaction, serious complications. Informed consent: signed by patient. Digitally Signed by NOEMI AYALA MD on 12/22/2024 09:03 AM [id number]. MICRO - Microbiology PROCEDURE: Blood Culture (bacterial) [*1] SOURCE: Blood BODY SITE: COLLECTED DATE/TIME: 11/06/2024 02:15 EST RECEIVED DATE/TIME: 11/06/2024 16:10 EST START DATE/TIME: 11/06/2024 16:12 EST FREE TEXT SOURCE: FINAL REPORTS Final Report [] Verified Date/Time/Personnel: 11/11/2024 17:00 EST Blood Culture: No Growth at 5 days. PRELIMINARY REPORTS Preliminary Report [] Verified Date/Time/Personnel: 11/06/2024 16:59 EST Culture has been received in lab and is no growth to date. Routine cultures are held for 5 days. Performing Locations *1: This test was performed at: [facility], [address] [place] [address], [facility] , [facility]01-09-2025 Note. MICRO - Microbiology PROCEDURE: Blood Culture (bacterial) [*1] SOURCE: Blood BODY SITE: Anticubital, Right COLLECTED DATE/TIME: 11/06/2024 01:11 EST RECEIVED DATE/TIME: 11/06/2024 16:13 EST START DATE/TIME: 11/06/2024 16:13 EST FREE TEXT SOURCE: FINAL REPORTS Final Report [] Verified Date/Time/Personnel: 11/11/2024 17:00 EST Blood Culture: No Growth at 5 days. PRELIMINARY REPORTS Preliminary Report [] Verified Date/Time/Personnel: 11/06/2024 16:59 EST Culture has been received in lab and is no growth to date. Routine cultures are held for 5 days. Performing Locations *1: This test was performed at: [address], [facility] , [facility]12-11-2024 NoteORIGINAL PROCEDURE: IR NEPHROSTOMY TUBE CHANGE Anesthesia provided by Department of Anesthesiology. 10/13/2024 HISTORY: ORDERING SYSTEM PROVIDED HISTORY: Reason for Exam: Left nephrostomy tube change TECHNIQUE: Following informed consent, pause a confirm/time-out patient is placed in prone position on fluoroscopic table. Previously placed left nephrostomy tube and entry site were prepped and draped in sterile fashion. 1% lidocaine without epinephrine for local anesthesia. Antegrade nephrostogram was performed. Guidewires advanced through previously placed nephrostomy tube under fluoroscopic observation over which previously placed nephrostomy tube was exchanged for a new 12 Andorran external drainage nephrostomy catheter. Pigtail tip formed within the left renal pelvis. Catheter affixed to the patient's skin. External drainage bag applied. Patient tolerated procedure well. CONTRAST: 15 cc Isovue-300 SEDATION: Anesthesia provided by Department of Anesthesiology. See anesthesia note for further discussion. FLUOROSCOPY DOSE AND TYPE: Radiation Exposure Index: Kerma 18 mGy, 3.5 minutes fluoroscopy time for procedure DESCRIPTION OF PROCEDURE: Informed consent was obtained after a detailed explanation of the procedure including risks, benefits, and alternatives. Webster protocol was observed. Sterile gowns, masks, hats and gloves utilized for maximal sterile barrier. As above in technique section FINDINGS: Preliminary nephrostogram demonstrates satisfactory position of previously placed external drainage nephrostomy catheter. Postprocedure image demonstrates new 12 Andorran left nephrostomy tube with tip curled in left renal pelvis. No complication or contrast extravasation noted. IMPRESSION: Exchange of previously placed 12 Andorran left nephrostomy tube for a new, similar tube with tip curled in left renal pelvis. No complication suggested. Interpreted by: Clotilde Randhawa DO Preliminary Report By: Clotilde Randhawa DO Electronically signed By Clotilde Randhawa DO Dictated Date: 10/13/2024 3:36:32 PM Prelim Date: 10/13/2024 3:38:58 PM Sign Date: 10/13/2024 3:38:58 PM Ordering Provider: [facility]10-09-2024 Hospital Discharge instructions Patient Education 08/11/2024 12:13:30 Radiology- Nephrostomy/Nephroureteral Tube Exchange 12/26/2022(CUSTOM) SAVANNAH Nephrostomy/Nephroureteral Tube Exchange Discharge Instructions Interventional Radiology [facility] [address] [place] [address] The procedure that you had done today is called a nephrostomy tube exchange. This is a procedure toreplace a pre-existing tube that drains the urine from the kidney in order to prevent pain, infection and kidney damage. This should occur every 6-12 weeks, depending on your physician's orders and personal condition. Your urine may be blood tinged, in the bag and from regular urination, for up to 48 hours. If you had a nephroureteral tube exchange today, then this procedure is to replace a pre-existing tube that goes from your back into the kidney and down the ureter to the bladder. This tube may be either capped or have a dependent bag attached like a nephrostomy tube. Please follow these instructions: DIET: Resume previous diet as tolerated ACTIVITY: Wear loose, comfortable clothing. Make sure your tube is secure at all times. Avoid tugging at the tube. PAIN CONTROL: Mild back discomfort on the side of the tube placement may occur for the first 24 hours. You may experience the feeling of the need to urinate. Ekpt-aoi-[id number] pain medication should be used for pain or discomfort. Please check with the physician who sent you for this procedure for their specific recommendations. If your pain is not relieved or becomes more severe, notify the physician who sent you for this procedure. IF YOU RECEIVED CONSCIOUS SEDATION (IV SEDATION) & YOU ARE DISCHARGED THE SAME DAY You must have someone drive you home when you leave the hospital. For 24 hours after your procedure, do not do anything where you need to make important decisions. This includes operating machinery, signing important documents, etc. MEDICATION: Please resume on . NEPHROSTOMY CARE: Wash your hands well with soap and water before and after caring for your nephrostomy tube. Keep the skin around the nephrostomy tube dry. If the area does get wet, dry the skin completely. Change the dressing every week, or as needed if it is leaking or the dressing becomes saturated. Keep all the ports of the tube and drainage bag as clean as possible to prevent infection. Empty the drainage bags often via the spout at the bottom of the bag. Turn clockwise. Avoid overfilling. Always empty the bag before bed. Some patients will be required to flush their tubes, please check with ordering physician for instructions and supplies. (You do not need to do this unless specifically instructed by your healthcare provider). TUBE PROBLEMS Call Interventional Radiology IMMEDIATELY if the tube falls out. Call Interventional Radiology if you notice decreased or no urine output or if urine leaks from thedressing site from tube. Call your Urologist if any abnormal bleeding, foul odor or drainage, redness, swelling, worsening pain, or fever above 102F. If the catheter falls out, it can be replaced by the doctor ideally within 24 hours. Do not attemptto put the tube back in yourself. BATHING Avoid swimming. You may shower with the nephrostomy bag attached to the skin, sit in a shallow bath, or sponge bathe while the catheter is in place. Be sure to keep the water level below the dressingwhen tub bathing. Please change your dressing if it gets wet. SPECIFIC INSTRUCTIONS TO CHANGE NEPHROSTOMY TUBE DRESSING Supplies needed: Soap and water Clean, dry towel Nephrostomy bag Clean adhesive dressing Gauze Because the nephrostomy tube is located on your back, you will need someone to assist you in changing the dressing. Wash hands well Remove the old dressing, peeling the edges slowly from skin. As the dressing is pulled away from the skin, support the nephrostomy tube with your free hand to prevent placing tension on the tube and accidentally pulling it out. Wash the area around the nephrostomy tube with soap and water. Gently pat the area dry. Need 2 layers of gauze. One layer in between the skin and the tube. Second layer of gauze goes overthe tube. Then place the clean adhesive dressing over the gauze. Supplies may be obtained at: [facility] [address] [facility] [address] [facility] Any questions or concerns, please contact your physician or Interventional Radiology at [phone] from 8-4:30pm Friday-Friday. If you do not have a follow up appointment scheduled at the time of discharge, please call Interventional Radiology at the number listed above. [facility] 10-09-2024 Evaluation + Plan noteExtracted from: Title:IR Pre-procedure H&P Author:SKY NEWSOME PA-C Date:08/11/24 IR PREPROCEDURE H&P UPDATE IF A HISTORY AND PHYSICAL EXAMINATION HAS BEEN COMPLETED PRIOR TO ADMISSION TO THE HOSPITAL, AN UPDATED EXAMINATION MUST BE COMPLETED AND DOCUMENTED WITHIN 24 HOURS AFTER ADMISSION OR REGISTRATION BUT BEFORE A SURGICAL PROCEDURE. I have examined the patient, reviewed the H&P, and there are no changes unless noted below: The most recent H&P/Office Note was performed on 07/19/2024 and can be found in the [place] [facility] ([facility]). Sky Newsome PA-C Interventional Radiology Pager: [phone] IR dept: x [phone] Available on itzat Future Appointments Appointment Date:08/16/2024 09:00:00 AM Scheduled Provider:OLE PACE MD Location:[place] Palliative Appointment Type:PALL OV Follow Up Future Scheduled Tests Laboratory* Clostridium difficile (PCR) 03/04/24 * Ova + Parasite Exam 03/04/24 Radiology* IR Nephrostomy Tube Change Lt Guide 09/04/23 [facility] 10-09-2024 Note* Juana Wilhelm RN: SIGN, AUTHOR, SIGN, AUTHOR, PERFORM Event Display: IR Procedure Record Authored Date: [id number] IR Procedure Record Summary Primary Physician: Finalized Date/Time: 08/11/24 10:35:27 Pt. Name: LALY NAVAS Austen Chapman./Sex: 1990 Female Med Rec #: [id number] Physician: Financial #: [id number] Pt. Type: S Room/Bed: [facility] Admit/Disch: 08/11/24 07:53:56 - Institution: Allergies identified in patient's electronic medical record at time of printing on 08/11/24 Entry 1 Entry 2 Entry 3 Substance Haldol Oranges penicillin Reaction Type Allergy Allergy Allergy Last Modified By: Fany Ruelas LPN, Kimberly V. RN Holt, Kimberly V. RN 11/19/23 09:39:23 07/21/23 10:11:02 07/21/23 10:10:45 Case Attendance- IR Entry 1 Entry 2 Entry 3 Case Attendee GARTH GOSS MD, Blaine Sim, [employer] Role Performed Procedure Surgeon Scrub Technologist Circulating Technologist Details Time In 08/11/24 09:58:00 08/11/24 09:58:00 08/11/24 09:58:00 Time Out 08/11/24 10:40:00 08/11/24 10:40:00 08/11/24 10:40:00 Procedure/Preference IR Nephrostomy Exchange IR Nephrostomy Exchange IR Nephrostomy Exchange Card (SN) (SN) (SN) Last Modified By: Juana Wilhelm RN, Erin N RN Metzger, Erin N RN 08/11/24 10:31:51 08/11/24 10:31:51 08/11/24 10:31:51 Entry 4 Entry 5 Case Attendee Juana Wilhelm RN, ADAM A APRN-SCALEMAKER Role Performed Procedure Nurse SCALEMAKER Details Time In 08/11/24 09:58:00 08/11/24 09:58:00 Time Out 08/11/24 10:40:00 08/11/24 10:40:00 Procedure/Preference IR Nephrostomy Exchange IR Nephrostomy Exchange Card (SN) (SN) Last Modified By: Juana Wilhelm RN, Erin N RN 08/11/24 10:31:51 08/11/24 10:31:51 Radiology Procedures- IR Entry 1 Procedure/Preference IR Nephrostomy Exchange Actual Procedure IR NEPH TUBE CHANGE Card (SN) Primary Procedure Yes Primary Surgeon GARTH GOSS MD Anesthesia/Sedation General Type Additional Procedure Times Start 08/11/24 10:22:00 Stop 08/11/24 10:31:00 Specialty Service SN Radiology Procedure EBL 3 mL Last Modified By: Juana Wilhelm RN 08/11/24 10:31:53 Radiology Procedure Details - IR Entry 1 Radiology Sedation Case Times Sedation Total Time 0 Radiology - Fluid/Drainage Radiology Contrast Contrast Used? Yes Dose 20 mL Medication ISOVUE 300 50ML 10/CA 1315-30 Radiology Flouroscopy Fluoroscopy Used? Yes Fluoro Dose (mGy) 36.6 Fluoro Time 4 mins Radiology Local Local Used? No Radiology Procedure Site Site/Location left flank Site Condition No complications Suture 2.0 Ethilon Suture Dressing Type Gauze sponge 4 X 4, Transparent Last Modified By: Juana Wilhelm RN 08/11/24 10:33:39 General Case Data - IR Entry 1 Case Information Room IR 17 Case Level IR Level 3 Wound Class None Specialty SN Radiology Procedure ASA Class 3 Diagnosis Preop Diagnosis cervical cancer Postop Same As Preop Yes Postop Diagnosis cervical cancer Last Modified By: Juana Wilhelm RN 08/11/24 09:41:23 Procedure Case Times- IR Entry 1 Patient In Procedure Patient In OR 08/11/24 09:58:00 Patient Out of OR 08/11/24 10:40:00 Procedure Start/Stop Procedure Start Time 08/11/24 10:22:00 Procedure Stop Time 08/11/24 10:31:00 Last Modified By: Juana Wilhelm RN 08/11/24 10:31:50 Immediate Post OP Note - IR Entry 1 Immediate Post Yes Procedure Note displayed for Physician to review Closure Technique Closure Technique Other than Primary Last Modified By: Juana Wilhelm RN 08/11/24 09:40:59 Immediate Post OP Note - IR Signed By: GARTH GOSS MD 10/09/24 10:34 Allergy Information- IR Entry 1 Allergies Reviewed? Yes Allergies Reviewed Patient With Last Modified By: Juana Wilhelm RN 08/11/24 09:38:28 Radiology Protocols/Time Out- IR Entry 1 Preprocedure Clinician Verifies Correct patient ID When Clinically Confirmation of correct using name & date Indicated side(s) and site(s), or MRN, Accurate Correct diagnostic and procedure, complete radiology tests Informed Consent, H & P available, Required update immediately blood products, prior to procedure, if implants, devices applicable and/or special equipment available OR/Procedure Room/Bedside Time 08/11/24 10:22:00 Clinician Verifies Correct patient identity including EMR & records using name and date or medical record number, Accurate procedure consent form, Correct patient position, Necessary equipment is available, Anticipated non-routine events with surgical team (case duration, estimated blood loss, patient specific concerns)., Parada patient factors for recovery and management identified with surgical team. When Applicable Confirmation correct Team Members GARTH GOSS MD, side and site marked, Present for Time Out Blaine Scanlon, Relevant images and Sam Sim, results are properly Juana Wilhelm RN labeled and appropriately displayed, Alcohol based prep dry, Double verification of sterility indicators complete Instrument Sterility Team Members GARTH GOSS MD, Verifying Sterility Blaine Scanlon Procedure IR Nephrostomy Exchange (SN) Last Modified By: Juana Wilhelm RN 08/11/24 10:28:31 Skin Prep- IR Entry 1 Procedure IR Nephrostomy Exchange (SN) Skin Prep Prep Area Back Side Left By Blaine Scanlon Prep Agents Chloraprep Hair Removal Method N/A Last Modified By: Juana Wilhelm RN 08/11/24 10:04:20 Patient Positioning- IR Entry 1 Procedure IR Nephrostomy Exchange Body Position OP Prone (SN), IR Nephrostomy Exchange (SN), IR Nephrostomy Exchange (SN), IR Nephrostomy Exchange (SN), IR Nephrostomy Exchange (SN) Feet Uncrossed? Yes Pressure Points Yes Checked Last Modified By: Juana Wilhelm RN 08/11/24 10:31:53 Radiology Procedure Plan - IR Entry 1 Radiology - Nursing Care Plan Outcome Statement The patient Outcome Statement The patient receives demonstrates knowledge Cont. appropriate of the expected medication(s), safely responses to the administered during the operative/invasive perioperative/invasive procedure., The period., The patient is patient's value system, free from signs and lifestyle, ethnicity, symptoms of injury and culture are caused by extraneous considered, respected, objects (equipment, and incorporated in the instrumentation, perioperative plan of sponges, or sharps). care., The patient is free from signs and symptoms of infection. Radiology - Action Plan Outcomes Met? Yes Mottler Operator Juana Wilhelm RN Completing Procedure Plan Last Modified By: Juana Wilhelm RN 08/11/24 09:41:12 Case Comments <None> Finalized By: Juana Wilhelm RN Document Signatures Signed By: Juana Wilhelm RN 08/11/24 10:35 Juana Wilhelm RN 08/11/24 10:35 [facility] 10-09-2024 Summary of episode note Discharge Instructions Thank you for allowing [facility] to assist you with your healthcare needs. The following is importantdischarge information regarding your hospital visit. Your Care Team OLE PACE MD What to do next Scheduled Follow-Up Appointments Appointment Type When With Where Contact Information StatusPALL OV Follow Up 08/16/2024 09:00 AM EDT OLE PACE MD [facility] Confirmed Allergies Haldol Tongue swelling Oranges Tongue swelling, Difficulty breathing penicillin Hives Medications Please ask your primary doctor or pharmacist before taking any other medication not listed, including over the counter drugs, herbal medications, vitamins and or supplements as they may interact withyour home medications. What How Much When Why Instructions Last Dose Unchanged acetaminophen 650 Milligram As needed for as needed for pain Unchanged albuterol (albuterol MDI (90 mcg/ inh) CFC free inhalation aerosol) 2 puff(s) by inhalation Every 6 hours as needed for as needed for wheezing Unchanged escitalopram (Lexapro 20 mg oral tablet) 1 tab(s) by mouth Once a day Unchanged ibuprofen (Motrin IB 200 mg oral tablet) 2 tab(s) by mouth Every 4 hours as needed for as needed for pain Unchanged LORazepam (Ativan 1 mg oral tablet) 1 tab(s) by mouth Two (2) times a day as needed for as needed for anxiety Palliative care patient THO (generalized anxiety disorder) Duration: 30 Days Unchanged ondansetron (ondansetron 4 mg oral tablet) 1 tab(s) by mouth Two (2) times a day TAKE ONE TABLET BY MOUTH EVERY 8 HOURS NEEDED FOR NAUSEA AND VOMITING Unchanged oxyCODONE (oxyCODONE 5 mg oral tablet ( IMMEDIATE release )) 2 tab(s) by mouth Every 6 hours as needed for for pain Cervical ca Cancer related pain dose increased. Please dispense today Unchanged tamsulosin (tamsulosin 0.4 mg oral capsule) 1 cap by mouth Two (2) times a day Please take this list to your next doctor s visit. Bring all medications you take, including over the counter medications, herbals and other supplements with you to your doctor s visit. Patients and families are reminded to discard old lists and to update any records with all medication providers or retail pharmacies. Education Materials SAVANNAH Nephrostomy/Nephroureteral Tube Exchange Discharge Instructions Interventional Radiology [facility] [address] [place] [address] The procedure that you had done today is called a nephrostomy tube exchange. This is a procedure toreplace a pre-existing tube that drains the urine from the kidney in order to prevent pain, infection and kidney damage. This should occur every 6-12 weeks, depending on your physician's orders and personal condition. Your urine may be blood tinged, in the bag and from regular urination, for up to 48 hours. If you had a nephroureteral tube exchange today, then this procedure is to replace a pre-existing tube that goes from your back into the kidney and down the ureter to the bladder. This tube may be either capped or have a dependent bag attached like a nephrostomy tube. Please follow these instructions: DIET: Resume previous diet as tolerated ACTIVITY: Wear loose, comfortable clothing. Make sure your tube is secure at all times. Avoid tugging at the tube. PAIN CONTROL: Mild back discomfort on the side of the tube placement may occur for the first 24 hours. You may experience the feeling of the need to urinate. Ivbx-jfg-cvupydc pain medication should be used for pain or discomfort. Please check with the physician who sent you for this procedure for their specific recommendations. If your pain is not relieved or becomes more severe, notify the physician who sent you for this procedure. IF YOU RECEIVED CONSCIOUS SEDATION (IV SEDATION) & YOU ARE DISCHARGED THE SAME DAY You must have someone drive you home when you leave the hospital. For 24 hours after your procedure, do not do anything where you need to make important decisions. This includes operating machinery, signing important documents, etc. MEDICATION: Please resume on . NEPHROSTOMY CARE: Wash your hands well with soap and water before and after caring for your nephrostomy tube. Keep the skin around the nephrostomy tube dry. If the area does get wet, dry the skin completely. Change the dressing every week, or as needed if it is leaking or the dressing becomes saturated. Keep all the ports of the tube and drainage bag as clean as possible to prevent infection. Empty the drainage bags often via the spout at the bottom of the bag. Turn clockwise. Avoid overfilling. Always empty the bag before bed. Some patients will be required to flush their tubes, please check with ordering physician for instructions and supplies. (You do not need to do this unless specifically instructed by your healthcare provider). TUBE PROBLEMS Call Interventional Radiology IMMEDIATELY if the tube falls out. Call Interventional Radiology if you notice decreased or no urine output or if urine leaks from thedressing site from tube. Call your Urologist if any abnormal bleeding, foul odor or drainage, redness, swelling, worsening pain, or fever above 102F. If the catheter falls out, it can be replaced by the doctor ideally within 24 hours. Do not attemptto put the tube back in yourself. BATHING Avoid swimming. You may shower with the nephrostomy bag attached to the skin, sit in a shallow bath, or sponge bathe while the catheter is in place. Be sure to keep the water level below the dressingwhen tub bathing. Please change your dressing if it gets wet. SPECIFIC INSTRUCTIONS TO CHANGE NEPHROSTOMY TUBE DRESSING Supplies needed: Soap and water Clean, dry towel Nephrostomy bag Clean adhesive dressing Gauze Because the nephrostomy tube is located on your back, you will need someone to assist you in changing the dressing. Wash hands well Remove the old dressing, peeling the edges slowly from skin. As the dressing is pulled away from the skin, support the nephrostomy tube with your free hand to prevent placing tension on the tube and accidentally pulling it out. Wash the area around the nephrostomy tube with soap and water. Gently pat the area dry. Need 2 layers of gauze. One layer in between the skin and the tube. Second layer of gauze goes overthe tube. Then place the clean adhesive dressing over the gauze. Supplies may be obtained at: [facility] [address] [facility] [address] [facility] Any questions or concerns, please contact your physician or Interventional Radiology at [phone] from 8-4:30pm Friday-Friday. If you do not have a follow up appointment scheduled at the time of discharge, please call Interventional Radiology at the number listed above. Additional Information VACCINATE! IT SAVES LIVES! Members of the community who have not yet received the COVID-19 vaccine and would like to receive it can visit one of [facility] vaccine clinics. There are many vaccine clinic locations within the [facility]. For locations and available times, please visit [email or web address] It is important to note that some COVID mobile vaccine clinics are held outdoors and may be canceled in rainy or stormy conditions. To learn more about pediatric vaccinations (ages 5-11), we invite you to visit the [facility] webpage. [email or web address] learn more about the COVID-19 vaccine, we invite you to visit the CDC website for a list of frequently asked questions.https://www.cdc.gov/coronavirus/2019-ncov/vaccines/faq.html [facility] Patient Portal Access Instructions: Stay connected with your healthcare team and access your personal medical information anytime with the [employer] Patient Portal. Please follow the directions below to create your [employer] account: 1.Access the email account you provided upon registration to the hospital/physician office.2.Look for an invitation email from [facility].3.Open the email and access the invitation link: AcceptInvitation to [facility].4.Fill in the required quintero to create your account. To access your account, visit [email or web address]. Click the blue button labeled Access Patient Portal and then log in with the username and password that you created in the steps above. You will be able to view your test results, lab results, a summary of your visits, upcoming appointments and more. There is also a convenient messaging option where you can send secure messages to your p rovider. In addition, you will have the ability to download any documents or summaries to your computer and/or send the information securely to a physician. Remember that your healthcare information is confidential, so carefully consider who you will allowto register on the [facility] [employer] Patient Portal for access to your information. You can also access the [facility] [employer] Patient Portal on the [place] [facility] joya. Simply click on Patient Portal and then log into your account. If you would like to receive a full copy of your medical records, please contact the [facility] Medical Records Department by calling [phone], Friday through Friday between 8 a.m. and 4:30 p.m. HOW TO SAFELY DISPOSE OF PRESCRIPTION MEDICATIONS Please use one of the following methods to safely dispose of your unused medications. 1.Use a drug disposal kit: the drug disposal pouch allows you to safely discard your old and unuseddrugs. Ask your nurse to give you one when you are discharged.2.Visit a local take-back location: Many local pharmacies and police departments have programs that collect old and unwanted prescriptiondrugs. Call your local pharmacy or go to http://Wishabi.ConsumerBell/1P0Cx4h to find one close to you.3.Make use of household items: Use cat litter or old coffee grounds to dispose medications if other options arenot available. Mix your drugs with these household products, seal them in an airtight container andthrow it into the garbage. Call [facility]: [phone] to be sure your drugs can be disposed of in this way. Some medicines may require a different approach.4.Never flush your medications down the toilet. IF YOU HAVE BEEN PRESCRIBED AN OPIOID FOR PAIN If you have been prescribed an opioid (such as hydrocodone, oxycodone or morphine), it is critical to understand the possible side effects and risks of opioid pain medications. Even when taken as directed, opioids can have several side effects including: Tolerance, meaning you might need to take more of a medication for the same pain relief. Nausea, vomiting and/or constipation. Sleepiness, dizziness, dry mouth, confusion, depression or itching. Physical dependence, meaning you have withdrawal symptoms when a medication is stopped, can develop within a few days. KNOW YOUR RESPONSIBILITIES It is important to know exactly how much and how often to take the opioid pain medications you are prescribed. Never take opioids in higher amounts or more often than prescribed. Do not combine opioids with alcohol or other drugs that cause drowsiness, such as benzodiazepines, also known as benzos, including diazepam and alprazolam, muscle relaxants or sleep aids. Never sell or share prescription opioids. This is illegal. Store opioids in a secure place and out of reach of others (including children, family, friends and visitors). The last page of this document has been signed and retained as a CHART COPY. Signatures Patient Education Materials Radiology- Nephrostomy/Nephroureteral Tube Exchange 12/26/2022(CUSTOM) Medication Leaflets My discharge plan and instructions have been reviewed and explained to me and I,LALY NAVAS understand my current condition and have read and understand these discharge instructions. I have received a written copy of the plan/instructions. If I have questions, I am aware that I should contact my doctor. 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 Nephrostomy tube exchange under fluoroscopy LATERALITY: Left HUMAN RESOURCES DIRECTOR: Dr. Goss Resident: Dr. English MATERIALS: 12 Fr drainage catheter Amplatz Moccasin bag [place] catheter ANESTHESIA: General anaesthesia. INTRASERVICE TIME (min): Please refer to anaesthesia case log for further details FLUORO: 4 min AIR KERMA DOSE: 36.1 mGy CONTRAST: Documented in Surginet. The procedure, risks, and alternatives, were discussed and all questions were answered. Informed consent obtained. Maximal sterile barrier technique, hand hygiene, skin prep, and sterile ultrasound techniques (if used) utilized. Percutaneous site was sterilely prepped and draped. Time out performed. Sausage Stuffer image demonstrates stable appearance of the nephrostomy tube. Contrast injection through the catheter demonstrates minimal hydronephrosis. After cutting the hub, the old catheter was exchanged for a new one and the distal loop formed in the renal pelvis, confirmed with contrast injection. The string was removed in its entirety. The catheter was flushed and attached to dependent bag drainage. Catheter secured to the skin with suture. Sterile dressing placed. COMPLICATIONS: None EBL: Minimal CONDITION: Stable, unchanged IMPRESSION: 1. Successful, uncomplicated nephrostomy tube change. 2. Patient to follow-up with interventional radiology in 6-8 weeks time for exchange, unless further intervention is pursued. The procedure was done with participation of the resident in my presence and direct supervision. I have reviewed the images and the findings with the resident and agree with the contents of the report. Discharge: The patient was dismissed to home after recovering from procedure in good condition. Detailed post procedure instructions were reviewed with the patient by radiology staff and printed instructions provided. Plan: Patient will follow-up with referring physician for test or pathology results. Interpreted by: Garth Goss Preliminary Report By: Noemi English Electronically signed By Garth Goss Dictated Date: 08/11/2024 2:01:42 PM Prelim Date: 08/11/2024 5:39:17 PM Sign Date: 08/11/2024 5:39:17 PM Ordering Provider: [facility]10-09-2024 Note IR Procedure Record Summary Primary Physician: Finalized Date/Time: 08/11/24 10:35:27 Pt. Name: LALY NAVAS./Sex: 1990 Female Med Rec #: [id number] Physician: Financial #: [id number] Pt. Type: S Room/Bed: [facility] Admit/Disch: 08/11/24 07:53:56 - Institution: Allergies identified in patient's electronic medical record at time of printing on 08/11/24 Entry 1 Entry 2 Entry 3 Substance Haldol Oranges penicillin Reaction Type Allergy Allergy Allergy Last Modified By: Fany Ruelas LPN, Kimberly V. RN Holt, Kimberly V. RN 11/19/23 09:39:23 07/21/23 10:11:02 07/21/23 10:10:45 Case Attendance- IR Entry 1 Entry 2 Entry 3 Case Attendee GARTH GOSS MD, Brandon L Allen, [employer] Role Performed Procedure Surgeon Scrub Technologist Circulating Technologist Details Time In 08/11/24 09:58:00 08/11/24 09:58:00 08/11/24 09:58:00 Time Out 08/11/24 10:40:00 08/11/24 10:40:00 08/11/24 10:40:00 Procedure/Preference IR Nephrostomy Exchange IR Nephrostomy Exchange IR Nephrostomy Exchange Card (SN) (SN) (SN) Last Modified By: Juana Wilhelm RN, Erin N RN Metzger, Erin N RN 08/11/24 10:31:51 08/11/24 10:31:51 08/11/24 10:31:51 Entry 4 Entry 5 Case Attendee Juana Wilhelm RN, ADAM A APRN-SCALEMAKER Role Performed Procedure Nurse SCALEMAKER Details Time In 08/11/24 09:58:00 08/11/24 09:58:00 Time Out 08/11/24 10:40:00 08/11/24 10:40:00 Procedure/Preference IR Nephrostomy Exchange IR Nephrostomy Exchange Card (SN) (SN) Last Modified By: Juana Wilhelm RN, Erin N RN 08/11/24 10:31:51 08/11/24 10:31:51 Radiology Procedures- IR Entry 1 Procedure/Preference IR Nephrostomy Exchange Actual Procedure IR NEPH TUBE CHANGE Card (SN) Primary Procedure Yes Primary Surgeon GARTH GOSS MD Anesthesia/Sedation General Type Additional Procedure Times Start 08/11/24 10:22:00 Stop 08/11/24 10:31:00 Specialty Service SN Radiology Procedure EBL 3 mL Last Modified By: Juana Wilhelm RN 08/11/24 10:31:53 Radiology Procedure Details - IR Entry 1 Radiology Sedation Case Times Sedation Total Time 0 Radiology - Fluid/Drainage Radiology Contrast Contrast Used? Yes Dose 20 mL Medication ISOVUE 300 50ML 10/CA 1315-30 Radiology Flouroscopy Fluoroscopy Used? Yes Fluoro Dose (mGy) 36.6 Fluoro Time 4 mins Radiology Local Local Used? No Radiology Procedure Site Site/Location left flank Site Condition No complications Suture 2.0 Ethilon Suture Dressing Type Gauze sponge 4 X 4, Transparent Last Modified By: Juana Wilhelm RN 08/11/24 10:33:39 General Case Data - IR Entry 1 Case Information Room AH IR 17 Case Level IR Level 3 Wound Class None Specialty SN Radiology Procedure ASA Class 3 Diagnosis Preop Diagnosis cervical cancer Postop Same As Preop Yes Postop Diagnosis cervical cancer Last Modified By: Juana Wilhelm RN 08/11/24 09:41:23 Procedure Case Times- IR Entry 1 Patient In Procedure Patient In OR 08/11/24 09:58:00 Patient Out of OR 08/11/24 10:40:00 Procedure Start/Stop Procedure Start Time 08/11/24 10:22:00 Procedure Stop Time 08/11/24 10:31:00 Last Modified By: Juana Wilhelm RN 08/11/24 10:31:50 Immediate Post OP Note - IR Entry 1 Immediate Post Yes Procedure Note displayed for Physician to review Closure Technique Closure Technique Other than Primary Last Modified By: Juana Wilhelm RN 08/11/24 09:40:59 Immediate Post OP Note - IR Signed By: GARTH GSOS MD 08/11/24 10:34 Allergy Information- IR Entry 1 Allergies Reviewed? Yes Allergies Reviewed Patient With Last Modified By: Juana Wilhelm RN 08/11/24 09:38:28 Radiology Protocols/Time Out- IR Entry 1 Preprocedure Clinician Verifies Correct patient ID When Clinically Confirmation of correct using name & date Indicated side(s) and site(s), or MRN, Accurate Correct diagnostic and procedure, complete radiology tests Informed Consent, H & P available, Required update immediately blood products, prior to procedure, if implants, devices applicable and/or special equipment available OR/Procedure Room/Bedside Time 08/11/24 10:22:00 Clinician Verifies Correct patient identity including EMR & records using name and date or medical record number, Accurate procedure consent form, Correct patient position, Necessary equipment is available, Anticipated non-routine events with surgical team (case duration, estimated blood loss, patient specific concerns)., Parada patient factors for recovery and management identified with surgical team. When Applicable Confirmation correct Team Members GARTH GOSS MD, side and site marked, Present for Time Out Blaine Scanlon, Relevant images and Sam Sim, results are properly Juana Wilhelm RN labeled and appropriately displayed, Alcohol based prep dry, Double verification of sterility indicators complete Instrument Sterility Team Members GARTH GOSS MD, Verifying Sterility Blaine Scanlon Procedure IR Nephrostomy Exchange (SN) Last Modified By: Juana Wilhelm RN 08/11/24 10:28:31 Skin Prep- IR Entry 1 Procedure IR Nephrostomy Exchange (SN) Skin Prep Prep Area Back Side Left By Blaine Scanlon Prep Agents Chloraprep Hair Removal Method N/A Last Modified By: Juana Wilhelm RN 08/11/24 10:04:20 Patient Positioning- IR Entry 1 Procedure IR Nephrostomy Exchange Body Position OP Prone (SN), IR Nephrostomy Exchange (SN), IR Nephrostomy Exchange (SN), IR Nephrostomy Exchange (SN), IR Nephrostomy Exchange (SN) Feet Uncrossed? Yes Pressure Points Yes Checked Last Modified By: Juana Wilhelm RN 08/11/24 10:31:53 Radiology Procedure Plan - IR Entry 1 Radiology - Nursing Care Plan Outcome Statement The patient Outcome Statement The patient receives demonstrates knowledge Cont. appropriate of the expected medication(s), safely responses to the administered during the operative/invasive perioperative/invasive procedure., The period., The patient is patient's value system, free from signs and lifestyle, ethnicity, symptoms of injury and culture are caused by extraneous considered, respected, objects (equipment, and incorporated in the instrumentation, perioperative plan of sponges, or sharps). care., The patient is free from signs and symptoms of infection. Radiology - Action Plan Outcomes Met? Yes Mottler Operator Juana Wilhelm RN Completing Procedure Plan Last Modified By: Juana Wilhelm RN 08/11/24 09:41:12 Case Comments Finalized By: Juana Wilhelm RN Document Signatures Signed By: Juana Wilhelm RN 08/11/24 10:35 Juana Wilhelm RN 08/11/24 10:35 [facility] [id number] History and physical note IR PREPROCEDURE H&P UPDATE IF A HISTORY AND PHYSICAL EXAMINATION HAS BEEN COMPLETED PRIOR TO ADMISSION TO THE HOSPITAL, AN UPDATED EXAMINATION MUST BE COMPLETED AND DOCUMENTED WITHIN 24 HOURS AFTER ADMISSION OR REGISTRATION BUT BEFORE A SURGICAL PROCEDURE. I have examined the patient, reviewed the H&P, and there are no changes unless noted below: The most recent H&P/Office Note was performed on 07/19/2024 and can be found in the [facility] [facility] ([employer]). Sky Newsome PA-C Interventional Radiology Pager: [phone] IR dept: [phone] Available on jobandtalent Signed by SKY NEWSOME PA-C on 08/11/2024 09:39 AM [facility] [id number] Anesthesiology Consult note Patient: LALY NAVAS Age: 33 years Sex: Female : 1990 Associated Diagnoses: None Author: NAYELI BRICE DO Preoperative Information Time of last food or liquid consumption: 08/11/2024 00:00:00 Anesthesia history Patient's history: negative. Family's history: negative. History of Present Illness Please refer to most recent H and P / daily progress note / consultation note for further details Acid reflux (controlled with bbhl-[id number]-lkvhpbw Pepto), anxiety, asthma, bradycardia, cervical cancer, cervicitis, chronic kidney disease stage III, COVID-19 (2022), ESBL, hydronephrosis, obstructive uropathy, pyelonephritis, seasonal allergies 33yoF with PMH asthma/reactive airway disease, cervical cancer, CKD, hydronephrosis presenting for neph tube exchange. Denies CP, SOB, fever, recent cough, cold or congestion; >4 METS, no GERD sx,N or V today. recent procedure 3 months ago no issues with prior procedure hx of vape tobacco Denies congenital cardiac issues, healthy active >4mets no limitations Health Status Allergies: Allergic Reactions (Selected) Severity Not Documented Haldol- Tongue swelling. Oranges- Tongue swelling and difficulty breathing. Penicillin- Hives., Allergies (3) ActiveSeverityReaction penicillinHives OrangesDifficulty breathing, Tongue swelling HaldolTongue swelling Current medications: (Selected) Inpatient Medications Ordered LR 1,000 mL: 20 mL/hr, Intravenous NS 1,000 mL: 20 mL/hr, Intravenous lidocaine 1% preservative-free injectable solution: 2.5 mg, 0.25 mL, Intradermal, prep pharm lidocaine 1% preservative-free injectable solution: 2.5 mg, 0.25 mL, Intradermal, prep pharm Prescriptions Prescribed Ativan 1 mg oral tablet: 1 mg, 1 tab(s), Oral, BID, for 30 day(s), PRN: as needed for anxiety, 60 tab(s), 1 Refill(s) Lexapro 20 mg oral tablet: 20 mg, 1 tab(s), Oral, qDay, 30 tab(s), 5 Refill(s) ondansetron 4 mg oral tablet: 4 mg, 1 tab(s), Oral, BID, TAKE ONE TABLET BY MOUTH EVERY 8 HOURS NEEDED FOR NAUSEA AND VOMITING, 60 tab(s), 2 Refill(s) oxyCODONE 5 mg oral tablet ( IMMEDIATE release ): 10 mg, 2 tab(s), Oral, q6h, dose increased. Please dispense today, PRN: for pain, 240 tab(s), 0 Refill(s) tamsulosin 0.4 mg oral capsule: 0.4 mg, 1 cap(s), Oral, BID, 30 cap(s), 2 Refill(s) Documented Medications Documented Motrin IB 200 mg oral tablet: 400 mg, 2 tab(s), Oral, q4h, PRN: as needed for pain, 120 tab(s), 0 Refill(s) acetaminophen: 650 mg, PRN: as needed for pain, 0 Refill(s) albuterol MDI (90 mcg/inh) CFC free inhalation aerosol: 2 puff(s), Inhalation, q6h, PRN: as needed for wheezing, 8.5 gram(s), 0 Refill(s), Medications (1) Active Scheduled: (0) Continuous: (1) Lactated Ringers 1,000 mL 1,000 mL, Intravenous, 20 mL/hr PRN: (0) Problem list: Medical Anxiety / SNOMED CT 23822791 / Confirmed Asthma / SNOMED CT 402809909 / Confirmed Decreased appetite / SNOMED CT 811182954 / Confirmed Dehydration / SNOMED CT 81742891 / Confirmed Port-A-Cath in place / SNOMED CT 5401661004 / Confirmed Bilateral flank pain / SNOMED CT 706078339 / Confirmed History of chemotherapy / SNOMED CT 7630988603 / Confirmed Hx of cervical cancer / SNOMED CT 0548233901 / Confirmed History of radiation therapy / SNOMED CT 5891644824 / Confirmed Hydronephrosis, left / SNOMED CT 45015442 / Confirmed Acute kidney injury / SNOMED CT 10659142 / Confirmed Left flank pain / SNOMED CT 979918384 / Confirmed Cervical cancer / SNOMED CT 170703464 / Confirmed Moderate protein-calorie malnutrition / SNOMED CT 406414314 / Confirmed Nausea and vomiting / SNOMED CT 17422797 / Confirmed Cancer related pain / SNOMED CT 2295917045 / Confirmed DVT prophylaxis / SNOMED CT 940630161 / Confirmed Palliative care encounter / SNOMED CT 025673256 / Confirmed Premature menopause / SNOMED CT 9215463862 / Confirmed Pyelonephritis / SNOMED CT 31489626 / Confirmed Nephrostomy status / SNOMED CT 435282726 / Confirmed Obstructive uropathy / SNOMED CT 29088918 / Confirmed, Active Problems (32) Acid reflux Acute kidney injury Anxiety Asthma Bilateral flank pain Bradycardia Cancer related pain Cervical cancer Contact lenses Decreased appetite Dehydration DVT prophylaxis Fall Frequent loose stools Glasses History of chemotherapy History of radiation therapy Hx of cervical cancer Hydronephrosis, left Left flank pain Marijuana smoker Moderate protein-calorie malnutrition Nausea and vomiting Nephrostomy status Obstructive uropathy Pain management Palliative care encounter Panic attack Port-A-Cath in place Premature menopause Pyelonephritis Seasonal allergy Histories Past Medical History: Resolved ESBL (extended spectrum beta-lactamase) producing bacteria infection (0783244628): Onset on 02/23/2023 at 32 years. Resolved on 05/07/2023 at 32 years. ESBL (extended spectrum beta-lactamase) producing bacteria infection (5436460281): Onset on 08/09/2022 at 31 years. Resolved on 01/02/2023 at 32 years. Comments: 01/02/2023 SUMEET 10:02 JAMAL Haynes Removed ESBL disease alert from 08/2022 per infection control protocol on 01/02/23. Mass of cervix (758402460): Resolved. Chronic kidney disease, stage 3 (moderate) (8408380546): Resolved. Hydronephrosis of left kidney (80618621): Resolved. Cervicitis (596380068): Resolved. Encounter for antineoplastic chemotherapy (788141390): Resolved. Tinnitus (334144653): Resolved. Complicated UTI (urinary tract infection) (247399004): Resolved. History of COVID-19 (6808432615): Resolved. Family History: Cancer Sister COPD - Chronic obstructive pulmonary disease Mother Kidney stone Mother Asthma Mother Breast cancer Mother Hypertension Mother Heart disease Mother Substance abuse Father Alcohol abuse Father Stroke Grandparent Father Heart attack Mother Diabetes Grandparent Procedure history: Nephrostomy using fluoroscopic guidance ([id number]) on 06/16/2024 at 33 Years. Comments: 06/21/2024 11:46 Fany Beard LPN left JJ stent ([id number]) on 06/16/2024 at 33 Years. Comments: 06/21/2024 11:47 Fany Beard LPN left Nephrostomy tube (076698566) on 10/05/2023 at 32 Years. Comments: 11/19/2023 9:37 Fany Sanchez LPN left side Nephrostomy with tube drainage (49931413) in the month of 07/2023 at 32 Years. Comments: 06/13/2020 10:09 JAMAL Guaman left Nephrostomy with tube drainage (40472228) on 01/10/2021 at 30 Years. Cannulation of Portacath (821968501) in 2020 at 30 Years. Comments: 06/13/2020 10:09 JAMAL Guaman right JJ stent ([id number]) on 11/15/2020 at 29 Years. Radiation ([id number]) in the month of 06/2020 at 29 Years. Comments: 06/26/2020 6:12 GINNY Burton RN Mayi A via tandems and oviod X2 Cervical biopsy ([id number]) in 2019 at 29 Years. Comments: 04/12/2020 18:25 Eri Conte RN pt states she had a cervical biopsy done on 04/07/2020 at [facility] for a cervical mass Tumor cells, benign (32005455) in 2001 at 11 Years. 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 done at [facility] in [place] Social History: Social & Psychosocial Habits Alcohol 08/11/2024 Assessment: Denies Alcohol Use 08/11/2024 Use: Past Type: Beer Frequency: 1-2 times per week Employment/School 07/19/2024 Status: Employed Substance Abuse 08/11/2024isk Assessment: Denies Substance Abuse 08/11/2024 Use: Current Type: Marijuana Frequency: Daily Tobacco 08/11/2024 Tobacco Use: Former smoker, quit more, Vaping Product in Last 90 Type: Electronic Cigarettes ([place] Tobacco use per day: 5 Started at age: 19 Years Stopped at age: 32 Years Smokeless tobacco use: Never Exposure to Tobacco Smoke Lives in non-smoking home Comment: current vaping - 08/06/2024 07:22 - JAMAL Ferrer Home/Environment 08/11/2024isk Assessment: No Risk 08/11/2024 Living situation: Home/Independent Safe place to go: Yes Financial concerns: No Domestic Concerns None Lives In Mobile home Current Home Treatments None Special Services and Community Resources None Marital Status of Patient if Patient Independent Adult: Unmarried Nutrition/Health 08/11/2024isk Assessment: No Risk 08/11/2024 Type of diet: Regular Appetite Poor Eating Difficulties None Sexual 08/11/2024 Sexually active: Yes First active at age: 18 Years Current partners: 1 Number of lifetime partners: 7 Self described orientation: Straight or heterosexual Other contraceptive use: condoms History of sexual abuse: No What is your current gender identity? (Check all that apply) Identifies as female Physical Examination Vital Signs 08/11/2024 8:31 EDT Temperature Temporal Artery 36.6 DegC Apical Heart Rate 72 bpm Respiratory Rate 16 br/min Systolic Blood Pressure Non-Invasive 111 mmHg Diastolic Blood Pressure Non-Invasive 78 mmHg Vital Signs (last 24 hrs) Last Charted Temp Jmtrrccq30.6 DegC (AUG 11 08:31) Heart Rate Xbybdf39 bpm (AUG 11 08:31) WHO853 mmHg (AUG 11 08:31) DBP78 mmHg (AUG 11 08:31) Measurements from flowsheet : Measurements 08/11/2024 8:31 EDT Height 163.8 cm Height in inches 64.5 inch(es) Admission Weight 59.5 kg Weight Lbs 130.9 lb Weight Method Actual [place] Body Weight 55.82 kg Type of Scale Used Bed scale Admission Body Mass Index 22.18 m2 Pain assessment: Pain Assessment 08/11/2024 8:31 EDT Primary Pain Location Abdomen Primary Pain Intensity 7 Primary Pain Nonverbal Response Nods Yes Pain Scale Type 0-10 Pain scale . General: Alert and oriented. Airway: Mallampati classification: II (soft palate, fauces, uvula visible). Dentition Evaluation: Chipped teeth. Respiratory: Respirations are non-labored. Neurologic: Alert, Oriented. Review / Management Results review: No qualifying data available , Lab results 08/11/2024 9:01 EDT Response to Advance Directive Request Scanned into EMR 08/11/2024 8:39 EDT SN - Preop - CTm Pt Ready for OR/Proced 08/11/2024 8:39 08/11/2024 8:33 EDT Nephrostomy Established Flank, left Urostomy Activity: Assessed Urostomy Complications: Other: bag is leaking Forearm Right 08/11/2024 22 gauge Peripheral IV Activity: Insert new site Peripheral IV Dressing Condition: Clean, Dry, Intact Peripheral IV Dressing Activity: Applied, Transparent dressing Peripheral IV Line Status/Patency: Continuous infusion Peripheral IV Line Care: Secured with tape Peripheral IV Site Condition: No complications Peripheral IV Equipment: Manual Peripheral IV Number of Attempts: 1 08/11/2024 8:31 EDT Urine POC Negative Height 163.8 cm Height in inches 64.5 inch(es) Admission Weight 59.5 kg Weight Lbs 130.9 lb Weight Method Actual [place] Body Weight 55.82 kg Type of Scale Used Bed scale Admission Body Mass Index 22.18 m2 Temperature Temporal Artery 36.6 DegC Apical Heart Rate 72 bpm Respiratory Rate 16 br/min Systolic Blood Pressure Non-Invasive 111 mmHg Diastolic Blood Pressure Non-Invasive 78 mmHg Primary Pain Location Abdomen Primary Pain Intensity 7 Primary Pain Nonverbal Response Nods Yes Pain Scale Type 0-10 Pain scale Heart Rhythm Regular Respirations Unlabored Oxygen Therapy Room air Oxygen Saturation 97 % Abdomen Description Non-distended Urinary Elimination Voiding, no difficulties Skin Temperature Warm Skin Description Alianza Skin Integrity Intact IV Present Present Neurological Symptoms Patient denies Extremity Movement Equal Characteristics of Speech Clear Level of Consciousness Alert Strength All Extremities Strong Tone All Extremities Normal Sensation All Extremities Intact Violence Risk Confused No Violence Risk Irritable No Violence Risk Boisterous No Violence Risk Verbal Threats No Violence Risk Physical Threats No Violence Risk Attacking Objects No Violence Risk Predictor Score 0 Violence Risk Intervention None Affect/Behavior Appropriate, Calm, Cooperative Orientation Oriented x 4 Allergies Yes Consent Form Signed No Patient Dressed In Hospital gown, No undergarments Pre-op Preparation Jewelry removed History & Physical On Chart No Obstructive Sleep Apnea Assess Completed Yes Orientation Assessment Oriented x 4 Pt./Caregiver Remote Cont.Visual Monitor Verbalizes/Nonverbally indicates understanding Belongings At Bedside Cell phone, Pants, Rings, Shirt, Shoes Activity Status ADL Awake NPO Status Maintained Standard Safety ID band on Allergy Band on and Verified Yes Patient ID Band on and Verified Yes Last Fluid Intake 08/10/2024 23:30 Last Food Intake 08/10/2024 22:30 Last Void 08/11/2024 8:32 08/11/2024 8:27 EDT SN - Preop - CTm Pt in SDS Room 08/11/2024 8:15 08/11/2024 8:27 EDT Designated Person #1 We May Share PHI Anmol Navas [phone] Designated Person #1 Relationship Father Designated Person #2 We May Share PHI [phone] Designated Person #2 Relationship Sibling Additional Designated Person Share PHI Denise Castaneda Privacy Restrictions Requested None Status No, per patient Sensory Deficits None Sleep Apnea Snore No Sleep Apnea Tired No Sleep Apnea Obstruction Yes Sleep Apnea Pressure No Sleep Apnea BMI No Sleep Apnea Age No Sleep Apnea Neck No Sleep Apnea Gender No Sleep Apnea Score 1 Diagnosed With Sleep Apnea No Advanced Directives Yes Advance Directive Type [place] Declaration (Living Will) Advance Directive Location Indicates that [place] has been given copy Infectious Disease Symptoms Patient states no symptoms Infectious Disease Recent Exposure No Alcohol and Drug Use No Employee of Institutional Living No Health Care Employee No History of Exposure to TB No History of Positive Chest X-Ray for TB No History of Positive TB Skin Test No Homeless No Known Immunosuppression No Recent Immigrant No Resident of Institutional Living No Bloody Sputum No Fatigue No Fever No Loss of Appetite No Night Sweats No Persistent Cough > 3 Weeks No Weight Loss No Pre-Op Patient Education NPO after midnight, No smoking after midnight, No makeup, No jewelry, Responsible Republican, Aware of surgery location, Instructed to bring home medications Individuals Taught Patient Learning Readiness Willing to learn Barriers to Learning None evident Teaching Method Explanation, Printed materials Preferred Spoken Language Greek Preferred Written Language Greek Family/Caregiver Prefer Spoken Language Greek Family/Caregiver Prefer Written Language Greek Teaching Evaluation Verbalizes/Nonverbally indicates understanding Safety Brochure Information Reviewed Yes [place] Welcome Video Viewed No Information Given by Patient Patient's Current Physicians Patient's Current Physicians Discharge To, Anticipated Home independently Prev Test Positive/Diagnosis w/COVID-19 No Current Quarantine/Isolated any Illness No Any Contact with Sick Animals/Birds No Traveled Anywhere in Last 30 Days No Lost Weight Unintentionally Recently No Eat Poorly Due to Decreased Appetite No Total MST Score 0 No Personal Devices, Patient Valuables None Anesthesia/Transfusions Prior anesthesia, Prior anesthesia reaction Type of Anesthesia Reaction Has cried after anesthesia in the past Admission Note-Nursing Same Day Patient History 08/11/2024 8:26 EDT Lactated Ringers Injection Begin Bag 1,000 mL mL . Assessment and Plan [employer] Anesthesiologists (ASA) physical status classification: Class III. Anesthetic Preoperative Plan Premedication: intravenous. Anesthetic technique: General. Induction: intravenously. Maintenance airway: Oral endotracheal tube. Postoperative pain management: Per surgeon. Risks discussed: nausea, vomiting, headache, sore throat, dental injury, hypotension, allergic reaction, serious complications. Informed consent: signed by patient. Notes: Extensive time was spent discussing with the patient and/or POA the inherent risks of anesthesia including but not limited too sore throat, dental injuries to teeth and gums, corneal abrasions, risk of heart attack, stroke, end organ dysfunction, and . The patient and/or POA is aware ofthese risks, accepts them and wishes to proceed with anesthesia. PMH asthma/reactive airway disease, cervical cancer, CKD, hydronephrosis presenting for neph tube exchange. Digitally Signed by NAYELI BRICE DO on 08/11/2024 09:33 AM [id number] Evaluation + Plan note Future Appointments Appointment Date:08/11/2024 10:00:00 AM Scheduled Provider: Location:IR Appointment Type:IR Nephrostomy Exchange Appointment Date:08/16/2024 09:00:00 AM Scheduled Provider:OLE PACE MD Location:[place] Palliative Appointment Type:PALL OV Follow Up Future Scheduled Tests Laboratory* Clostridium difficile (PCR) 03/04/24 * Ova + Parasite Exam 03/04/24 Radiology* IR Nephrostomy Exchange 08/11/24 * IR Nephrostomy Tube Change Lt Guide 09/04/23 [facility] 09-24-2024 Interventional radiology Progress note The patient was notified via phone her next neph tube exchange in IR with anesthesia is scheduled for Wed 08/11 arrival at 0800 same day surgery. The patient was also notified her pre test appointmentis scheduled for 08/04 at 9am. The patient confirmed and verbalized understanding. Digitally Signed by JAMAL Coleman on 07/27/2024 11:32 AM [facility] [id number] NoteORIGINAL PROCEDURE: Nephrostogram with left percutaneous nephrostomy catheter exchange performed on 06/09/2024. INDICATION: 33 y/o with chronic indwelling left nephrostomy catheter requiring routine exchange. Request for evaluation of the left ureter for possible internalization. The patient previously had a nephroureteral catheter, which required conversion to nephrostomy catheter due to severity of ureteral stricture. The patient was unable to have successful internal drainage with the nephroureteral catheter in place previously. COMPARISON: Prior study dated 04/14/2024. TECHNIQUE/FINDINGS: The procedure was performed in the Fluoroscopy Suite with the patient in the prone position following a Time Out. The back and existing left 10-F percutaneous nephrostomy catheter were prepped and draped in the usual sterile fashion. A fluoroscopic motion picture set worker image was obtained demonstrating the expected position of the existing nephrostomy catheter. Using sterile technique, contrast was gently injected into the existing nephrostomy catheter. The nephrostogram demonstrated slight retraction of the catheter pigtail into an inferior calyx. Using fluoroscopic guidance, a 0.035 inch guidewire was advanced through the existing catheter into the ureter. The catheter was removed. Over the guidewire, a 5-F catheter was positioned into the mid left ureter. Contrast injection demonstrated complete obstruction of the mid ureter. A 10-F sheath was position within the mid ureter. A Layo catheter was then positioned at the site of obstruction. With the balloon inflated, contrast injection demonstrated no evidence of residual patency despite pressurized injection. Blunt recannulization techniques were then utilized, which resulted in perforation of the mid ureter. Traversing the chronic ureteral occlusion was unsuccessful. Over a guidewire, the 10 -F sheath was exchanged for a 12 -F locking pigtail nephrostomy catheter. The catheter pigtail was successfully position within the renal pelvis. The catheter was then attached to bag drainage, secured, and dressed in the usual fashion. There were no immediate complications. Total Fluoroscopy Time: 14.2 minutes. Reference Air Kerma (RAH): 597.08 mGy. Sedation: General Anesthesia. IMPRESSION: 1. Left nephrostogram demonstrating complete obstruction of the mid left ureter. 2. Unsuccessful attempts at blunt ureteral recannulization. 3. Replacement of a 12-F left nephrostomy catheter. Note: Routine catheter exchange recommended in 10-12 weeks. Interpreted by: Viral Manuel MD Preliminary Report By: Viral Manuel MD Electronically signed By Viral Manuel MD Dictated Date: 06/14/2024 2:08:59 PM Prelim Date: 06/14/2024 2:56:33 PM Sign Date: 06/14/2024 2:56:33 PM Ordering Provider: [facility] ([place])06-09-2024 Evaluation + Plan noteExtracted from: Title:IR Pre-Procedure H&P Update Author:MILAGRO SANCHEZ PA-C Date:06/09/24 IR PREPROCEDURE H&P UPDATE IF A HISTORY AND PHYSICAL EXAMINATION HAS BEEN COMPLETED PRIOR TO ADMISSION TO THE HOSPITAL, AN UPDATED EXAMINATION MUST BE COMPLETED AND DOCUMENTED WITHIN 24 HOURS AFTER ADMISSION OR REGISTRATION BUT BEFORE A SURGICAL PROCEDURE. I have examined the patient, reviewed the H&P, and there are no changes unless noted below: _ The most recent H&P/Office Note was performed on 05/24/24 and can be found in the [facility] Records ([place]). Milagro Mcgarry PA-C Interventional Radiology IR Dept [id number] Available on Care Aware Future Appointments Appointment Date:06/21/2024 11:30:00 AM Scheduled Provider:OLE PACE MD Location:[place] Palliative Appointment Type:PALL OV Follow Up Future Scheduled Tests Laboratory* Clostridium difficile (PCR) 03/04/24 * Ova + Parasite Exam 03/04/24 Radiology* IR Nephrostomy Exchange 06/09/24 * IR Nephrostomy Tube Change Lt Guide 09/04/23 [facility] 08-07-2024 Hospital Discharge instructions Patient Education 06/09/2024 11:02:59 Radiology- Nephrostomy/Nephroureteral Tube Exchange 12/26/2022(CUSTOM) [facility] Nephrostomy/Nephroureteral Tube Exchange Discharge Instructions Interventional Radiology [facility] [address] [place] [address] The procedure that you had done today is called a nephrostomy tube exchange. This is a procedure toreplace a pre-existing tube that drains the urine from the kidney in order to prevent pain, infection and kidney damage. This should occur every 6-12 weeks, depending on your physician's orders and personal condition. Your urine may be blood tinged, in the bag and from regular urination, for up to 48 hours. If you had a nephroureteral tube exchange today, then this procedure is to replace a pre-existing tube that goes from your back into the kidney and down the ureter to the bladder. This tube may be either capped or have a dependent bag attached like a nephrostomy tube. Please follow these instructions: DIET: Resume previous diet as tolerated ACTIVITY: Wear loose, comfortable clothing. Make sure your tube is secure at all times. Avoid tugging at the tube. PAIN CONTROL: Mild back discomfort on the side of the tube placement may occur for the first 24 hours. You may experience the feeling of the need to urinate. [id number] pain medication should be used for pain or discomfort. Please check with the physician who sent you for this procedure for their specific recommendations. If your pain is not relieved or becomes more severe, notify the physician who sent you for this procedure. IF YOU RECEIVED CONSCIOUS SEDATION (IV SEDATION) & YOU ARE DISCHARGED THE SAME DAY You must have someone drive you home when you leave the hospital. For 24 hours after your procedure, do not do anything where you need to make important decisions. This includes operating machinery, signing important documents, etc. MEDICATION: Please resume on . NEPHROSTOMY CARE: Wash your hands well with soap and water before and after caring for your nephrostomy tube. Keep the skin around the nephrostomy tube dry. If the area does get wet, dry the skin completely. Change the dressing every week, or as needed if it is leaking or the dressing becomes saturated. Keep all the ports of the tube and drainage bag as clean as possible to prevent infection. Empty the drainage bags often via the spout at the bottom of the bag. Turn clockwise. Avoid overfilling. Always empty the bag before bed. Some patients will be required to flush their tubes, please check with ordering physician for instructions and supplies. (You do not need to do this unless specifically instructed by your healthcare provider). TUBE PROBLEMS Call Interventional Radiology IMMEDIATELY if the tube falls out. Call Interventional Radiology if you notice decreased or no urine output or if urine leaks from thedressing site from tube. Call your Urologist if any abnormal bleeding, foul odor or drainage, redness, swelling, worsening pain, or fever above 102F. If the catheter falls out, it can be replaced by the doctor ideally within 24 hours. Do not attemptto put the tube back in yourself. BATHING Avoid swimming. You may shower with the nephrostomy bag attached to the skin, sit in a shallow bath, or sponge bathe while the catheter is in place. Be sure to keep the water level below the dressingwhen tub bathing. Please change your dressing if it gets wet. SPECIFIC INSTRUCTIONS TO CHANGE NEPHROSTOMY TUBE DRESSING Supplies needed: Soap and water Clean, dry towel Nephrostomy bag Clean adhesive dressing Gauze Because the nephrostomy tube is located on your back, you will need someone to assist you in changing the dressing. Wash hands well Remove the old dressing, peeling the edges slowly from skin. As the dressing is pulled away from the skin, support the nephrostomy tube with your free hand to prevent placing tension on the tube and accidentally pulling it out. Wash the area around the nephrostomy tube with soap and water. Gently pat the area dry. Need 2 layers of gauze. One layer in between the skin and the tube. Second layer of gauze goes overthe tube. Then place the clean adhesive dressing over the gauze. Supplies may be obtained at: [facility] [address] [facility] [address] [facility] Any questions or concerns, please contact your physician or Interventional Radiology at [phone] from 8-4:30pm Friday-Friday. If you do not have a follow up appointment scheduled at the time of discharge, please call Interventional Radiology at the number listed above. 06/09/2024 11:02:47 1- [facility] General Discharge Guidelines (07/18/2023) (CUSTOM) [facility] SAME DAY SURGERY DISCHARGE INSTRUCTIONS PLEASE FOLLOW THE INSTRUCTIONS BELOW MARKED WITH AN X: __X_Regular Diet: Start with clear liquids, then soup and crackers. Gradually add other foods unless otherwise instructed by your surgeon __X_Drink extra fluids ACTIVTY: __X_Since you have had anesthetic, it would be advisable not to drive, drink alcohol, or make majordecisions over the next 24 hours. You may require more rest tonight and tomorrow __X_Do not drive vehicle while taking narcotics and as directed by your Surgeon ____Restrict activity as follows: ____Do not have sexual intercourse. Nothing in the vagina-No tampons or Douching ____No heavy lifting, pushing, or straining ____Elevate operative limb ____Ice as directed __X_Follow all written and verbal instructions given to you by your Doctor ____Other: BATHING/SHOWERING ____Sponge bathe until office visit. ____Sitting in tub of warm water may relieve discomfort ____May tub bathe ____May shower in 24-48 hours with clean linen unless otherwise instructed by your Doctor DRESSING: ____Keep operative area clean and dry ____Check the operative area for signs of bleeding. Apply pressure to the bleeding site if necessary. ____Change drip pad as needed ____Wear scrotal support for comfort WATCH FOR SIGNS OF INFECTION: (Usually appears 36-48 hours after surgery) Increased temperature (101 degrees Fahrenheit or higher) Redness or swelling Increased pain Foul odor or drainage If you have any questions, please call your doctor at the number listed on your follow-up instructions. Follow Up Care 06/07/2024 11:54:07 With:JULIAN ISABEL MD Address: [address] [place] [address] [place] [address]- [phone] When: Unknown Comments:Call the office to schedule a follow up appointment if not already done. [facility] 08-07-2024 Note* Cristina Simons RN: SIGN, AUTHOR, SIGN, AUTHOR, PERFORM Event Display: IR Procedure Record Authored Date: IR Procedure Record Summary Primary Physician: VIRAL MANUEL MD Finalized Date/Time: 06/09/24 09:42:49 Pt. Name: ANTONELLALALY /Sex: 1990 Female Med Rec #: [id number] Physician: Financial #: [id number] Pt. Type: S Room/Bed: [facility]/A Admit/Disch: 06/09/24 05:55:56 - Institution: Allergies identified in patient's electronic medical record at time of printing on 06/09/24 Entry 1 Entry 2 Entry 3 Substance Haldol Oranges penicillin Reaction Type Allergy Allergy Allergy Last Modified By: Fany Ruelas LPN, Kimberly V. RN Holt, Kimberly V. RN 11/19/23 09:39:23 07/21/23 10:11:02 07/21/23 10:10:45 Case Attendance- IR Entry 1 Entry 2 Entry 3 Case Attendee VIRAL MANUEL MD, CHRISTOPHER MD Aller, Tracie N RN Role Performed Primary Surgeon Assisting Surgeon Western Philosophy Professor 1 Details Time In 06/09/24 08:45:00 06/09/24 08:45:00 06/09/24 08:18:00 Time Out 06/09/24 09:22:00 06/09/24 09:22:00 06/09/24 09:38:00 Procedure/Preference IR Nephrostomy Exchange IR Nephrostomy Exchange IR Nephrostomy Exchange Card (SN) (SN) (SN) Last Modified By: Cristina Simons RN, Tracie N RN Aller, Tracie N RN 06/09/24 09:42:01 06/09/24 09:42:01 06/09/24 09:42:01 Entry 4 Entry 5 Entry 6 Case Attendee Padmini Fairchild, DENISE Mariee LITIGATION ATTORNEY ASSOCIATE-SCALEMAKER Role Performed Scrub Technologist Circulating Technologist SCALEMAKER Details Time In 06/09/24 08:18:00 06/09/24 08:18:00 06/09/24 08:18:00 Time Out 06/09/24 09:38:00 06/09/24 09:38:00 06/09/24 09:38:00 Procedure/Preference IR Nephrostomy Exchange IR Nephrostomy Exchange IR Nephrostomy Exchange Card (SN) (SN) (SN) Last Modified By: Cristina Simons RN, Tracie N RN Aller, Tracie N RN 06/09/24 09:42:01 06/09/24 09:42:01 06/09/24 09:42:01 Radiology Procedures- IR Entry 1 Procedure/Preference IR Nephrostomy Exchange Actual Procedure IR NEPH TUBE CHANGE Card (SN) Primary Procedure Yes Primary Surgeon VIRAL MANUEL MD Anesthesia/Sedation General, Local Type Additional Procedure Times Start 06/09/24 08:45:00 Stop 06/09/24 09:22:00 Specialty Service SN Radiology Procedure EBL 2 mL Last Modified By: Cristina Simons RN 06/09/24 09:24:43 Radiology Procedure Details - IR Entry 1 Radiology Sedation Case Times Sedation Total Time 0 minutes Radiology - Fluid/Drainage Radiology Contrast Contrast Used? Yes Dose 65 mL Medication CONTRAST ISOVUE 300/30ML 10/CA [id number] Radiology Flouroscopy Fluoroscopy Used? Yes Fluoro Dose (mGy) 597.08 Fluoro Time 14.2 minutes Radiology Local Local Used? No Radiology Procedure Site Site/Location Left flank Site Condition No complications Dressing Type Gauze sponge 4 X 4, Technologist Notes Left neph tube Transparent exchange. Unsuccessful attempt to internalize Last Modified By: Cristina Simons RN 06/09/24 09:42:36 General Case Data - IR Entry 1 Case Information Room IR 17 Case Level IR Level 3 Wound Class None Specialty SN Radiology Procedure ASA Class 3 Diagnosis Preop Diagnosis internalize stent, Postop Same As Preop Yes routine exchange Postop Diagnosis internalize stent, routine exchange Last Modified By: Cristina Simons RN 06/09/24 08:52:14 Procedure Case Times- IR Entry 1 Patient In Procedure Patient In OR 06/09/24 08:18:00 Patient Out of OR 06/09/24 09:38:00 Procedure Start/Stop Procedure Start Time 06/09/24 08:45:00 Procedure Stop Time 06/09/24 09:22:00 Last Modified By: Cristina Simons RN 06/09/24 09:42:00 Allergy Information- IR Entry 1 Allergies Reviewed? Yes Allergies Reviewed Patient With Last Modified By: Cristina Simons RN 06/09/24 08:47:29 Radiology Protocols/Time Out- IR Entry 1 Preprocedure Clinician Verifies Correct patient ID When Clinically Confirmation of correct using name & date Indicated side(s) and site(s), or MRN, Accurate Correct diagnostic and procedure, complete radiology tests Informed Consent, H & P available, Required update immediately blood products, prior to procedure, if implants, devices applicable and/or special equipment available OR/Procedure Room/Bedside Time 06/09/24 08:45:00 Clinician Verifies Correct patient identity including EMR & records using name and date or medical record number, Accurate procedure consent form, Correct patient position, Necessary equipment is available, Anticipated non-routine events with surgical team (case duration, estimated blood loss, patient specific concerns)., Parada patient factors for recovery and management identified with surgical team. When Applicable Confirmation correct Team Members VIRAL MANUEL MD, side and site marked, Present for Time Out NOEMI ENGLISH MD, Relevant images and Cristina Simons RN, results are properly Waldemar Winters G, labeled and Padmini Fairchild Rad appropriately [place], DENISE MONROY displayed, Alcohol LITIGATION ATTORNEY ASSOCIATE-SCALEMAKER based prep dry, Double verification of sterility indicators complete Instrument Sterility Team Members Padmini Fairchild Verifying Sterility Tech Procedure IR Nephrostomy Exchange (SN) Last Modified By: Cristina Simons RN 06/09/24 08:50:31 Skin Prep- IR Entry 1 Procedure IR Nephrostomy Exchange (SN) Skin Prep Prep Area Flank Side Left By Padmini Fairchild Prep Agents Chloraprep Tech Hair Removal Method N/A Last Modified By: Cristina Simons RN 06/09/24 08:50:51 Patient Positioning- IR Entry 1 Procedure IR Nephrostomy Exchange Body Position OP Prone (SN) Feet Uncrossed? Yes Pressure Points Yes Checked Last Modified By: Cristina Simons RN 06/09/24 08:51:01 Radiology Procedure Plan - IR Entry 1 Radiology - Nursing Care Plan Outcome Statement The patient Outcome Statement The patient receives demonstrates knowledge Cont. appropriate of the expected medication(s), safely responses to the administered during the operative/invasive perioperative/invasive procedure., The period., The patient is patient's value system, free from signs and lifestyle, ethnicity, symptoms of injury and culture are caused by extraneous considered, respected, objects (equipment, and incorporated in the instrumentation, perioperative plan of sponges, or sharps). care., The patient is free from signs and symptoms of infection. Radiology - Action Plan Outcomes Met? Yes Mottler Operator Cristina Simons RN Completing Procedure Plan Last Modified By: Cristina Simons RN 06/09/24 08:51:45 Case Comments <None> Finalized By: Cristina Simons RN Document Signatures Signed By: Cristina Simons RN 06/09/24 09:42 Cristina Simons RN 06/09/24 09:42 [facility] 08-07-2024 Summary of episode note Discharge Instructions Thank you for allowing [facility] to assist you with your healthcare needs. The following is importantdischarge information regarding your hospital visit. Your Care Team OTHER, PROVIDER NOT SPECIFIED What to do next Scheduled Follow-Up Appointments Appointment Type When With Where Contact Information StatusPALL OV Follow Up 06/21/2024 11:30 AM OLE MATUTE MD [facility] Confirmed Follow Up Appointments Follow Up with JULIAN ISABEL MD Where:[address] [place] [address] [place] [address] [phone] Additional Information: Call the office to schedule a follow up appointment if not already done. The Following Activity and Diet Have Been Ordered for You No qualifying data available. No qualifying data available. The Following Equipment Has Been Ordered for You No qualifying data available. The Following Treatments Have Been Ordered for You Discharge Labs No qualifying data available. Discharge Radiology No qualifying data available. Other Therapies No qualifying data available. Post Acute Orders No qualifying data available. Someone Will Contact You Regarding These Home Health Referrals No home referrals have been ordered for you. No one will call you. Allergies Haldol Tongue swelling Oranges Tongue swelling, Difficulty breathing penicillin Hives Medications Please ask your primary doctor or pharmacist before taking any other medication not listed, including over the counter drugs, herbal medications, vitamins and or supplements as they may interact withyour home medications. What How Much When Why Instructions Last Dose Unchanged acetaminophen 650 Milligram As needed for as needed for pain Unchanged escitalopram (Lexapro 20 mg oral tablet) 1 tab(s) by mouth Once a day Unchanged ibuprofen (Motrin IB 200 mg oral tablet) 2 tab(s) by mouth Every 4 hours as needed for as needed for pain Unchanged LORazepam (Ativan 1 mg oral tablet) 1 tab(s) by mouth Two (2) times a day as needed for as needed for anxiety Palliative care patient THO (generalized anxiety disorder) Duration: 30 Days Unchanged naloxone (naloxone 4 mg/ 0.1 mL nasal spray) 1 spray(s) Intranasal As Directed as needed for see pharmacy notes may repeat every 2 to 3 minutes until patient responds Unchanged ondansetron (ondansetron 4 mg oral tablet) 1 tab(s) by mouth Two (2) times a day TAKE ONE TABLET BY MOUTH EVERY 8 HOURS NEEDED FOR NAUSEA AND VOMITING Unchanged oxyCODONE (oxyCODONE 5 mg oral tablet ( IMMEDIATE release )) 1 tab(s) by mouth Every 6 hours as needed for for pain Cancer related pain History of cervical cancer Unchanged potassium chloride (Potassium Chloride (Plh-Xeuo-Ikt M20) 20 mEq oral tablet, extended release) 1 tab(s) TAKE 1 TABLET BY MOUTH TWICE DAILY Please take this list to your next doctor s visit. Bring all medications you take, including over the counter medications, herbals and other supplements with you to your doctor s visit. Patients and families are reminded to discard old lists and to update any records with all medication providers or retail pharmacies. Education Materials SAVANNAH Nephrostomy/Nephroureteral Tube Exchange Discharge Instructions Interventional Radiology [facility] [address] [place] [address] The procedure that you had done today is called a nephrostomy tube exchange. This is a procedure toreplace a pre-existing tube that drains the urine from the kidney in order to prevent pain, infection and kidney damage. This should occur every 6-12 weeks, depending on your physician's orders and personal condition. Your urine may be blood tinged, in the bag and from regular urination, for up to 48 hours. If you had a nephroureteral tube exchange today, then this procedure is to replace a pre-existing tube that goes from your back into the kidney and down the ureter to the bladder. This tube may be either capped or have a dependent bag attached like a nephrostomy tube. Please follow these instructions: DIET: Resume previous diet as tolerated ACTIVITY: Wear loose, comfortable clothing. Make sure your tube is secure at all times. Avoid tugging at the tube. PAIN CONTROL: Mild back discomfort on the side of the tube placement may occur for the first 24 hours. You may experience the feeling of the need to urinate. Tfli-rag-zszmudn pain medication should be used for pain or discomfort. Please check with the physician who sent you for this procedure for their specific recommendations. If your pain is not relieved or becomes more severe, notify the physician who sent you for this procedure. IF YOU RECEIVED CONSCIOUS SEDATION (IV SEDATION) & YOU ARE DISCHARGED THE SAME DAY You must have someone drive you home when you leave the hospital. For 24 hours after your procedure, do not do anything where you need to make important decisions. This includes operating machinery, signing important documents, etc. MEDICATION: Please resume on . NEPHROSTOMY CARE: Wash your hands well with soap and water before and after caring for your nephrostomy tube. Keep the skin around the nephrostomy tube dry. If the area does get wet, dry the skin completely. Change the dressing every week, or as needed if it is leaking or the dressing becomes saturated. Keep all the ports of the tube and drainage bag as clean as possible to prevent infection. Empty the drainage bags often via the spout at the bottom of the bag. Turn clockwise. Avoid overfilling. Always empty the bag before bed. Some patients will be required to flush their tubes, please check with ordering physician for instructions and supplies. (You do not need to do this unless specifically instructed by your healthcare provider). TUBE PROBLEMS Call Interventional Radiology IMMEDIATELY if the tube falls out. Call Interventional Radiology if you notice decreased or no urine output or if urine leaks from thedressing site from tube. Call your Urologist if any abnormal bleeding, foul odor or drainage, redness, swelling, worsening pain, or fever above 102F. If the catheter falls out, it can be replaced by the doctor ideally within 24 hours. Do not attemptto put the tube back in yourself. BATHING Avoid swimming. You may shower with the nephrostomy bag attached to the skin, sit in a shallow bath, or sponge bathe while the catheter is in place. Be sure to keep the water level below the dressingwhen tub bathing. Please change your dressing if it gets wet. SPECIFIC INSTRUCTIONS TO CHANGE NEPHROSTOMY TUBE DRESSING Supplies needed: Soap and water Clean, dry towel Nephrostomy bag Clean adhesive dressing Gauze Because the nephrostomy tube is located on your back, you will need someone to assist you in changing the dressing. Wash hands well Remove the old dressing, peeling the edges slowly from skin. As the dressing is pulled away from the skin, support the nephrostomy tube with your free hand to prevent placing tension on the tube and accidentally pulling it out. Wash the area around the nephrostomy tube with soap and water. Gently pat the area dry. Need 2 layers of gauze. One layer in between the skin and the tube. Second layer of gauze goes overthe tube. Then place the clean adhesive dressing over the gauze. Supplies may be obtained at: [facility] [address] [facility] [address] [facility] Any questions or concerns, please contact your physician or Interventional Radiology at [phone] from 8-4:30pm Friday-Friday. If you do not have a follow up appointment scheduled at the time of discharge, please call Interventional Radiology at the number listed above. SAVANNAH SAME DAY SURGERY DISCHARGE INSTRUCTIONS PLEASE FOLLOW THE INSTRUCTIONS BELOW MARKED WITH AN X: __X_Regular Diet: Start with clear liquids, then soup and crackers. Gradually add other foods unless otherwise instructed by your surgeon __X_Drink extra fluids ACTIVTY: __X_Since you have had anesthetic, it would be advisable not to drive, drink alcohol, or make majordecisions over the next 24 hours. You may require more rest tonight and tomorrow __X_Do not drive vehicle while taking narcotics and as directed by your Surgeon ____Restrict activity as follows: ____Do not have sexual intercourse. Nothing in the vagina-No tampons or Douching ____No heavy lifting, pushing, or straining ____Elevate operative limb ____Ice as directed __X_Follow all written and verbal instructions given to you by your Doctor ____Other: BATHING/SHOWERING ____Sponge bathe until office visit. ____Sitting in tub of warm water may relieve discomfort ____May tub bathe ____May shower in 24-48 hours with clean linen unless otherwise instructed by your Doctor DRESSING: ____Keep operative area clean and dry ____Check the operative area for signs of bleeding. Apply pressure to the bleeding site if necessary. ____Change drip pad as needed ____Wear scrotal support for comfort WATCH FOR SIGNS OF INFECTION: (Usually appears 36-48 hours after surgery) Increased temperature (101 degrees Fahrenheit or higher) Redness or swelling Increased pain Foul odor or drainage If you have any questions, please call your doctor at the number listed on your follow-up instructions. Additional Information VACCINATE! IT SAVES LIVES! Members of the community who have not yet received the COVID-19 vaccine and would like to receive it can visit one of [facility] vaccine clinics. There are many vaccine clinic locations within the [facility]. For locations and available times, please visit https://gettheshot.coronavirus.[place].gov/. It is important to note that some COVID mobile vaccine clinics are held outdoors and may be canceled in rainy or stormy conditions. To learn more about pediatric vaccinations (ages 5-11), we invite you to visit the [facility] webpage. https://www.[facility].org/pages/0907-Obvyl-Tsmfsxxfjkz-Crgvmgusxi-Vojyh-Son stions.htmlTo learn more about the COVID-19 vaccine, we invite you to visit the CDC website for a list of frequently asked questions.https://www.cdc.gov/coronavirus/2019-ncov/vaccines/faq.html [facility] [employer] Patient Portal Access Instructions: Stay connected with your healthcare team and access your personal medical information anytime with the [employer] Patient Portal. Please follow the directions below to create your [employer] account: 1.Access the email account you provided upon registration to the hospital/physician office.2.Look for an invitation email from [facility].3.Open the email and access the invitation link: AcceptInvitation to [employer].4.Fill in the required quintero to create your account. To access your account, visit [employer]. Click the blue button labeled Access Patient Portal and then log in with the username and password that you created in the steps above. You will be able to view your test results, lab results, a summary of your visits, upcoming appointments and more. There is also a convenient messaging option where you can send secure messages to your p [employer]. In addition, you will have the ability to download any documents or summaries to your computer and/or send the information securely to a physician. Remember that your healthcare information is confidential, so carefully consider who you will allowto register on the [employer] Patient Portal for access to your information. You can also access the [employer] Patient Portal on the [employer]. Simply click on Patient Portal and then log into your account. If you would like to receive a full copy of your medical records, please contact the [facility] Medical Records Department by calling [phone], Friday through Friday between 8 a.m. and 4:30 p.m. HOW TO SAFELY DISPOSE OF PRESCRIPTION MEDICATIONS Please use one of the following methods to safely dispose of your unused medications. 1.Use a drug disposal kit: the drug disposal pouch allows you to safely discard your old and unuseddrugs. Ask your nurse to give you one when you are discharged.2.Visit a local take-back location: Many local pharmacies and police departments have programs that collect old and unwanted prescriptiondrugs. Call your local pharmacy or go to http://Wishabi.ConsumerBell/5P5Iu6n to find one close to you.3.Make use of household items: Use cat litter or old coffee grounds to dispose medications if other options arenot available. Mix your drugs with these household products, seal them in an airtight container andthrow it into the garbage. Call [facility]: [phone] to be sure your drugs can be disposed of in this way. Some medicines may require a different approach.4.Never flush your medications down the toilet. IF YOU HAVE BEEN PRESCRIBED AN OPIOID FOR PAIN If you have been prescribed an opioid (such as hydrocodone, oxycodone or morphine), it is critical to understand the possible side effects and risks of opioid pain medications. Even when taken as directed, opioids can have several side effects including: Tolerance, meaning you might need to take more of a medication for the same pain relief. Nausea, vomiting and/or constipation. Sleepiness, dizziness, dry mouth, confusion, depression or itching. Physical dependence, meaning you have withdrawal symptoms when a medication is stopped, can develop within a few days. KNOW YOUR RESPONSIBILITIES It is important to know exactly how much and how often to take the opioid pain medications you are prescribed. Never take opioids in higher amounts or more often than prescribed. Do not combine opioids with alcohol or other drugs that cause drowsiness, such as benzodiazepines, also known as benzos, including diazepam and alprazolam, muscle relaxants or sleep aids. Never sell or share prescription opioids. This is illegal. Store opioids in a secure place and out of reach of others (including children, family, friends and visitors). The last page of this document has been signed and retained as a CHART COPY. Signatures Patient Education Materials Radiology- Nephrostomy/Nephroureteral Tube Exchange 12/26/2022(CUSTOM) 1- SDS General Discharge Guidelines (07/18/2023) (CUSTOM) Medication Leaflets My discharge plan and instructions have been reviewed and explained to me and I,ANTONELLA, LALY L understand my current condition and have read and understand these discharge instructions. I have received a written copy of the plan/instructions. If I have questions, I am aware that I should contact my doctor. 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 Name: ANTONELLALALY./Sex: 1990 Female Med Rec #: [id number] Physician: Financial #: [id number] Pt. Type: S Room/Bed: [facility]/A Admit/Disch: 06/09/24 05:55:56 - Institution: Allergies identified in patient's electronic medical record at time of printing on 06/09/24 Entry 1 Entry 2 Entry 3 Substance Haldol Oranges penicillin Reaction Type Allergy Allergy Allergy Last Modified By: Fany Ruelas LPN, Kimberly V. RN Holt, Kimberly V. RN 11/19/23 09:39:23 07/21/23 10:11:02 07/21/23 10:10:45 Case Attendance- IR Entry 1 Entry 2 Entry 3 Case Attendee VIRAL MANUEL MD, Cristina Chávez MD, RN Role Performed Primary Surgeon Assisting Surgeon Western Philosophy Professor 1 Details Time In 06/09/24 08:45:00 06/09/24 08:45:00 06/09/24 08:18:00 Time Out 06/09/24 09:22:00 06/09/24 09:22:00 06/09/24 09:38:00 Procedure/Preference IR Nephrostomy Exchange IR Nephrostomy Exchange IR Nephrostomy Exchange Card (SN) (SN) (SN) Last Modified By: Cristina Simons RN, Tracie N RN Aller, Tracie N RN 06/09/24 09:42:01 06/09/24 09:42:01 06/09/24 09:42:01 Entry 4 Entry 5 Entry 6 Case Attendee Padmini Fairchild, DENISE Mraiee LITIGATION ATTORNEY ASSOCIATE-SCALEMAKER Role Performed Scrub Technologist Circulating Technologist SCALEMAKER Details Time In 06/09/24 08:18:00 06/09/24 08:18:00 06/09/24 08:18:00 Time Out 06/09/24 09:38:00 06/09/24 09:38:00 06/09/24 09:38:00 Procedure/Preference IR Nephrostomy Exchange IR Nephrostomy Exchange IR Nephrostomy Exchange Card (SN) (SN) (SN) Last Modified By: Cristina Simons RN, Tracie N RN Aller, Tracie N RN 06/09/24 09:42:01 06/09/24 09:42:01 06/09/24 09:42:01 Radiology Procedures- IR Entry 1 Procedure/Preference IR Nephrostomy Exchange Actual Procedure IR NEPH TUBE CHANGE Card (SN) Primary Procedure Yes Primary Surgeon VIRAL MANUEL MD Anesthesia/Sedation General, Local Type Additional Procedure Times Start 06/09/24 08:45:00 Stop 06/09/24 09:22:00 Specialty Service SN Radiology Procedure EBL 2 mL Last Modified By: Cristina Simons RN 06/09/24 09:24:43 Radiology Procedure Details - IR Entry 1 Radiology Sedation Case Times Sedation Total Time 0 minutes Radiology - Fluid/Drainage Radiology Contrast Contrast Used? Yes Dose 65 mL Medication CONTRAST ISOVUE 300/30ML 10/CA 606585 Radiology Flouroscopy Fluoroscopy Used? Yes Fluoro Dose (mGy) 597.08 Fluoro Time 14.2 minutes Radiology Local Local Used? No Radiology Procedure Site Site/Location Left flank Site Condition No complications Dressing Type Gauze sponge 4 X 4, Technologist Notes Left neph tube Transparent exchange. Unsuccessful attempt to internalize Last Modified By: Cristina Simons RN 06/09/24 09:42:36 General Case Data - IR Entry 1 Case Information Room IR 17 Case Level IR Level 3 Wound Class None Specialty SN Radiology Procedure ASA Class 3 Diagnosis Preop Diagnosis internalize stent, Postop Same As Preop Yes routine exchange Postop Diagnosis internalize stent, routine exchange Last Modified By: Cristina Simons RN 06/09/24 08:52:14 Procedure Case Times- IR Entry 1 Patient In Procedure Patient In OR 06/09/24 08:18:00 Patient Out of OR 06/09/24 09:38:00 Procedure Start/Stop Procedure Start Time 06/09/24 08:45:00 Procedure Stop Time 06/09/24 09:22:00 Last Modified By: Cristina Simons RN 06/09/24 09:42:00 Allergy Information- IR Entry 1 Allergies Reviewed? Yes Allergies Reviewed Patient With Last Modified By: Cristina Simons RN 06/09/24 08:47:29 Radiology Protocols/Time Out- IR Entry 1 Preprocedure Clinician Verifies Correct patient ID When Clinically Confirmation of correct using name & date Indicated side(s) and site(s), or MRN, Accurate Correct diagnostic and procedure, complete radiology tests Informed Consent, H & P available, Required update immediately blood products, prior to procedure, if implants, devices applicable and/or special equipment available OR/Procedure Room/Bedside Time 06/09/24 08:45:00 Clinician Verifies Correct patient identity including EMR & records using name and date or medical record number, Accurate procedure consent form, Correct patient position, Necessary equipment is available, Anticipated non-routine events with surgical team (case duration, estimated blood loss, patient specific concerns)., Parada patient factors for recovery and management identified with surgical team. When Applicable Confirmation correct Team Members VIRAL MANUEL MD, side and site marked, Present for Time Out NOEMI ENGLISH MD, Relevant images and Cristina Simons RN, results are properly Waldemar Winters G, labeled and Padmini Fairchild appropriately ELIANA Oglesby MATTHEW J displayed, Alcohol LITIGATION ATTORNEY ASSOCIATE-SCALEMAKER based prep dry, Double verification of sterility indicators complete Instrument Sterility Team Members Padmini Fairchild Verifying Sterility Tech Procedure IR Nephrostomy Exchange (SN) Last Modified By: Cristina Simons RN 06/09/24 08:50:31 Skin Prep- IR Entry 1 Procedure IR Nephrostomy Exchange (SN) Skin Prep Prep Area Flank Side Left By Padmini Fairchild Rad Prep Agents Chloraprep Tech Hair Removal Method N/A Last Modified By: Cristina Simons RN 06/09/24 08:50:51 Patient Positioning- IR Entry 1 Procedure IR Nephrostomy Exchange Body Position OP Prone (SN) Feet Uncrossed? Yes Pressure Points Yes Checked Last Modified By: Cristina Simons RN 06/09/24 08:51:01 Radiology Procedure Plan - IR Entry 1 Radiology - Nursing Care Plan Outcome Statement The patient Outcome Statement The patient receives demonstrates knowledge Cont. appropriate of the expected medication(s), safely responses to the administered during the operative/invasive perioperative/invasive procedure., The period., The patient is patient's value system, free from signs and lifestyle, ethnicity, symptoms of injury and culture are caused by extraneous considered, respected, objects (equipment, and incorporated in the instrumentation, perioperative plan of sponges, or sharps). care., The patient is free from signs and symptoms of infection. Radiology - Action Plan Outcomes Met? Yes Mottler Operator Cristina Simons RN Completing Procedure Plan Last Modified By: Cristina Simons RN 06/09/24 08:51:45 Case Comments Finalized By: Cristina Simons RN Document Signatures Signed By: Cristina Simons RN 06/09/24 09:42 Cristina Simons RN 06/09/24 09:42 [id number] History and physical note IR PREPROCEDURE H&P UPDATE IF A HISTORY AND PHYSICAL EXAMINATION HAS BEEN COMPLETED PRIOR TO ADMISSION TO THE HOSPITAL, AN UPDATED EXAMINATION MUST BE COMPLETED AND DOCUMENTED WITHIN 24 HOURS AFTER ADMISSION OR REGISTRATION BUT BEFORE A SURGICAL PROCEDURE. I have examined the patient, reviewed the H&P, and there are no changes unless noted below: _ The most recent H&P/Office Note was performed on 05/24/24 and can be found in the [facility] ([facility]). Milagro Mcgarry PA-C Interventional Radiology IR Dept [id number] Available on Care Aware Digitally Signed by MILAGRO MCGARRY PA-C on 06/09/2024 07:59 AM Digitally Signed by VIRAL MANUEL MD on 06/09/2024 08:34 AM [facility] [id number] Anesthesiology Consult note Patient: LALY NAVAS Age: 33 years Sex: Female : 1990 Associated Diagnoses: None Author: HILDA HADDAD MD Preoperative Information NPO >8 hours Anesthesia history Patient's history: negative. History of Present Illness 33yoF with PMH asthma/reactive airway disease, cervical cancer, CKD, hydronephrosis presenting for neph tube exchange. Denies CP, SOB, fever, recent cough, cold or congestion; >4 METS, no GERD sx,N or V today. Health Status Allergies: Allergic Reactions (Selected) Severity Not Documented Haldol- Tongue swelling. Oranges- Tongue swelling and difficulty breathing. Penicillin- Hives., Allergies (3) ActiveSeverityReaction penicillinHives OrangesDifficulty breathing, Tongue swelling HaldolTongue swelling Current medications: (Selected) Inpatient Medications Ordered NS 1,000 mL: 20 mL/hr, Intravenous NS 1,000 mL: 20 mL/hr, Intravenous lidocaine 1% preservative-free injectable solution: 2.5 mg, 0.25 mL, Intradermal, prep pharm lidocaine 1% preservative-free injectable solution: 2.5 mg, 0.25 mL, Intradermal, prep pharm Prescriptions Prescribed Ativan 1 mg oral tablet: 1 mg, 1 tab(s), Oral, BID, for 30 day(s), PRN: as needed for anxiety, 60 tab(s), 1 Refill(s) Lexapro 20 mg oral tablet: 20 mg, 1 tab(s), Oral, qDay, 30 tab(s), 2 Refill(s) ondansetron 4 mg oral tablet: 4 mg, 1 tab(s), Oral, BID, TAKE ONE TABLET BY MOUTH EVERY 8 HOURS NEEDED FOR NAUSEA AND VOMITING, 60 tab(s), 2 Refill(s) oxyCODONE 5 mg oral tablet ( IMMEDIATE release ): 5 mg, 1 tab(s), Oral, q6hr, PRN: for pain, 120 tab(s), 0 Refill(s) Documented Medications Documented Motrin IB 200 mg oral tablet: 400 mg, 2 tab(s), Oral, q4h, PRN: as needed for pain, 120 tab(s), 0 Refill(s) Potassium Chloride (Hzb-Yfsy-Hjc M20) 20 mEq oral tablet, extended release: 20 mEq, 1 tab(s), TAKE 1 TABLET BY MOUTH TWICE DAILY acetaminophen: 650 mg, PRN: as needed for pain, 0 Refill(s) naloxone 4 mg/0.1 mL nasal spray: 4 mg, 1 spray(s), Intranasal, AsDirected, may repeat every 2 to 3minutes until patient responds, PRN: see pharmacy notes, 2 EA, 0 Refill(s), Medications (1) Active Scheduled: (0) Continuous: (1) NS (0.9% nacl) 1,000 mL 1,000 mL, Intravenous, 20 mL/hr PRN: (0) Problem list: Medical Anxiety / SNOMED CT 16088523 / Confirmed Asthma / SNOMED CT 427640527 / Confirmed Decreased appetite / SNOMED CT 848271099 / Confirmed Dehydration / SNOMED CT 65223495 / Confirmed Port-A-Cath in place / SNOMED CT 1627984763 / Confirmed Bilateral flank pain / SNOMED CT 610579770 / Confirmed History of chemotherapy / SNOMED CT 2931702669 / Confirmed Hx of cervical cancer / SNOMED CT 1247171489 / Confirmed History of radiation therapy / SNOMED CT 9491493065 / Confirmed Hydronephrosis, left / SNOMED CT 98241064 / Confirmed Acute kidney injury / SNOMED CT 25919010 / Confirmed Left flank pain / SNOMED CT 875793854 / Confirmed Cervical cancer / SNOMED CT 323304161 / Confirmed Moderate protein-calorie malnutrition / SNOMED CT 692481205 / Confirmed Nausea and vomiting / SNOMED CT 82780069 / Confirmed Cancer related pain / SNOMED CT 4283318659 / Confirmed DVT prophylaxis / SNOMED CT 179958936 / Confirmed Palliative care encounter / SNOMED CT 202324839 / Confirmed Premature menopause / SNOMED CT 8213001174 / Confirmed Pyelonephritis / SNOMED CT 76048958 / Confirmed Nephrostomy status / SNOMED CT 331571459 / Confirmed Complicated UTI (urinary tract infection) / SNOMED CT 304001514 / Confirmed Obstructive uropathy / SNOMED CT 19706967 / Confirmed, Active Problems (28) Acute kidney injury Anxiety Asthma Bilateral flank pain Bradycardia Cancer related pain Cervical cancer Complicated UTI (urinary tract infection) Contact lenses COVID-19 Decreased appetite Dehydration DVT prophylaxis Fall Glasses History of chemotherapy History of radiation therapy Hx of cervical cancer Hydronephrosis, left Left flank pain Moderate protein-calorie malnutrition Nausea and vomiting Nephrostomy status Obstructive uropathy Palliative care encounter Port-A-Cath in place Premature menopause Pyelonephritis Histories Past Medical History: Resolved ESBL (extended spectrum beta-lactamase) producing bacteria infection (5992939494): Onset on 02/23/2023 at 32 years. Resolved on 05/07/2023 at 32 years. ESBL (extended spectrum beta-lactamase) producing bacteria infection (0073876165): Onset on 08/09/2022 at 31 years. Resolved on 01/02/2023 at 32 years. Comments: 01/02/2023 SUMEET 10:02 JAMAL Haynes Removed ESBL disease alert from 08/2022 per infection control protocol on 01/02/23. Mass of cervix (125196859): Resolved. Chronic kidney disease, stage 3 (moderate) (4187701984): Resolved. Hydronephrosis of left kidney (56973707): Resolved. Cervicitis (177294885): Resolved. Encounter for antineoplastic chemotherapy (810910853): Resolved. Tinnitus (776364426): Resolved. History of COVID-19 (2615141492): Resolved. Family History: Cancer Sister COPD - Chronic obstructive pulmonary disease Mother Kidney stone Mother Asthma Mother Breast cancer Mother Hypertension Mother Heart disease Mother Substance abuse Father Alcohol abuse Father Stroke Grandparent Father Heart attack Mother Diabetes Grandparent Procedure history: Nephrostomy tube (091177470) on 10/05/2023 at 32 Years. Comments: 11/19/2023 9:37 Fany Sanchez LPN left side Nephrostomy with tube drainage (12424354) in the month of 07/2023 at 32 Years. Comments: 06/13/2020 10:09 JAMAL Guaman left Nephrostomy with tube drainage (62603112) on 01/10/2021 at 30 Years. Cannulation of Portacath (275820270) in 2020 at 30 Years. Comments: 06/13/2020 10:09 JAMAL Guaman right JJ stent ([id number]) on 11/15/2020 at 29 Years. Radiation (913160465) in the month of 06/2020 at 29 Years. Comments: 06/26/2020 6:12 GINNY Burton RN Mayi Jenkins via tandems and oviod X2 Cervical biopsy (75975890) in 2019 at 29 Years. Comments: 04/12/2020 18:25 Eri Conte RN pt states she had a cervical biopsy done on 04/07/2020 at [facility] for a cervical mass Tumor cells, benign (92874556) in 2001 at 11 Years. 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 done at [facility] in [place] Social History: Social & Psychosocial Habits Alcohol 06/09/2024isk Assessment: Denies Alcohol Use 06/09/2024 Use: Past Type: Beer Frequency: 1-2 times per week Employment/School 05/24/2024 Status: Employed Substance Abuse 06/09/2024 Use: Never 06/09/2024isk Assessment: Denies Substance Abuse Tobacco 06/09/2024 Tobacco Use: Former smoker, quit more Exposure to Tobacco Smoke Lives in non-smoking home Started at age: 19 Years Stopped at age: 32 Years Smokeless tobacco use: Never 06/09/2024 Tobacco Use: Former smoker, quit more Type: Cigarettes Tobacco use per day: 10 Number of years: 10 Started at age: 19 Years Stopped at age: 32 Years Previous treatment: None Ready to change: Yes Home/Environment 4Risk Assessment: No Risk 06/09/2024 Living situation: Home/Independent Safe place to go: Yes Financial concerns: No Domestic Concerns None Lives In Mobile home Current Home Treatments None Special Services and Community Resources None Marital Status of Patient if Patient Independent Adult: Unmarried Nutrition/Health 06/09/2024 Type of diet: Regular Appetite Fair Eating Difficulties None Caffeine intake amount: 1 can pop per day 4Risk Assessment: No Risk 06/09/2024 Type of diet: Regular Appetite Poor Sexual 06/09/2024 Sexually active: Yes First active at age: 18 Years Current partners: 1 Number of lifetime partners: 7 Self described orientation: Straight or heterosexual Other contraceptive use: condoms History of sexual abuse: No What is your current gender identity? (Check all that apply) Identifies as female Physical Examination Vital Signs (last 24 hrs) Last Charted Temp Ihepfsih93.4 DegC (JUN 09 06:46) QLQ454 mmHg (JUN 09 06:46) DBPH 90 mmHg (JUN 09 06:46) BMI21.18 (JUN 09 06:48) Measurements from flowsheet : Measurements 06/09/2024 6:48 EDT Body Mass Index 21.18 kg/m2 06/09/2024 6:46 EDT Height 167.6 cm Height in inches 66 inch(es) Admission Weight 59.5 kg Weight Lbs 130.9 lb Weight Method Actual [place] Body Weight 59.26 kg Type of Scale Used Bed scale Admission Body Mass Index 21.18 m2 General: Alert and oriented, No acute distress. Airway: Normal mouth. Mallampati classification: II (soft palate, fauces, uvula visible). Dentition Evaluation: Chipped teeth. Neck: Supple. Respiratory: Lungs are clear to auscultation, Respirations are non-labored. Cardiovascular: Normal rate, Regular rhythm. Heart Sounds: Normal. Neurologic: Alert, Oriented. Review / Management Results review: No qualifying data available . Documentation reviewed: Current records. Assessment and Plan [employer] Society of Anesthesiologists (ASA) physical status classification: Class III. Anesthetic Preoperative Plan Premedication: intravenous. Anesthetic technique: General. Induction: intravenously. Maintenance airway: Oral endotracheal tube. Postoperative pain management: Per surgeon. Risks discussed: nausea, vomiting, headache, sore throat, dental injury, hypotension, allergic reaction, serious complications. Informed consent: signed by patient. Notes: Late entry due to participation in pt care. Pt seen and evaluated prior to performing anesthetic. Discussed and agree upon plan. . Digitally Signed by HILDA HADDAD MD on 06/09/2024 09:02 AM [id number] Note. MICRO - Microbiology PROCEDURE: Blood Culture (bacterial) [*1] SOURCE: Blood BODY SITE: Anticubital, Right COLLECTED DATE/TIME: 05/17/2024 19:40 EDT RECEIVED DATE/TIME: 05/18/2024 18:09 EDT START DATE/TIME: 05/18/2024 18:10 EDT FREE TEXT SOURCE: FINAL REPORTS Final Report [] Verified Date/Time/Personnel: 05/23/2024 18:59 EDT Blood Culture: No Growth at 5 days. PRELIMINARY REPORTS Preliminary Report [] Verified Date/Time/Personnel: 05/18/2024 18:59 EDT Culture has been received in lab and is no growth to date. Routine cultures are held for 5 days. Performing Locations *1: This test was performed at: [address], [address] [place], [place] [address]99505-23-2024 Note. MICRO - Microbiology PROCEDURE: Blood Culture (bacterial) [*1] SOURCE: Blood BODY SITE: Hand L COLLECTED DATE/TIME: 05/17/2024 19:41 EDT RECEIVED DATE/TIME: 05/18/2024 18:10 EDT START DATE/TIME: 05/18/2024 18:10 EDT FREE TEXT SOURCE: FINAL REPORTS Final Report [] Verified Date/Time/Personnel: 05/23/2024 18:59 EDT Blood Culture: No Growth at 5 days. PRELIMINARY REPORTS Preliminary Report [] Verified Date/Time/Personnel: 05/18/2024 18:59 EDT Culture has been received in lab and is no growth to date. Routine cultures are held for 5 days. Performing Locations *1: This test was performed at: [address], [address] [place] [address])04-14-2024 NoteORIGINAL PROCEDURE: Percutaneous left nephrostomy tube exchange with fluoroscopy CLINICAL STATEMENT: History of cervical cancer with left hydronephrosis HUMAN RESOURCES DIRECTOR: Tadeo Leija PA-C MATERIALS: 10 Fr X 35 cm nephrostomy drainage catheter Bentson wire Drainage bag 2-0 Ethibond CONTRAST: 5 mL ANESTHESIA: MAC and local FLUORO: 0.9 minutes AIR KERMA DOSE: 2.90 mGy The procedure, risks, and alternatives, were discussed and all questions were answered. Informed consent obtained. Accompanying paperwork was verified for accuracy. Directed history and physical exam performed prior to the procedure. Medication reconciliation performed by nursing personnel. Procedure was performed using a cap, sterile gown, sterile gloves, a large sterile sheet, hand hygiene and 2% chlorhexidine for cutaneous antisepsis. The patient was positioned on the table and prepped and draped in usual sterile fashion. A critical pause was performed with assisting personnel just prior to the procedure with the patient's identity confirmed using 2 identifiers, confirming site and side. Sausage Stuffer image with contrast injection demonstrates stable appearance of the nephrostomy tube. After cutting the hub, the old catheter was exchanged for a new one over a wire and the distal loop formed in the renal pelvis, confirmed with contrast injection. The string was removed in its entirety. The catheter was flushed and attached to dependent drainage bag. COMPLICATIONS: None EBL: None CONDITION: unchanged IMPRESSION: Successful left nephrostomy tube exchange. Procedure was performed by Tadeo Leija PA-C. I concur with the contents of this report. Interpreted by: Viral Manuel MD Preliminary Report By: Tadeo Leija PA-C Electronically signed By Viral Manuel MD Dictated Date: 04/14/2024 4:57:29 PM Prelim Date: 04/14/2024 4:58:35 PM Sign Date: 04/14/2024 5:53:55 PM Ordering Provider: [facility]04-14-2024 Hospital Discharge instructions Patient Education 04/14/2024 14:01:07 Radiology- Nephrostomy/Nephroureteral Tube Exchange 12/26/2022(CUSTOM) SAVANNAH Nephrostomy/Nephroureteral Tube Exchange Discharge Instructions Interventional Radiology [facility] [address] [place] [address] The procedure that you had done today is called a nephrostomy tube exchange. This is a procedure toreplace a pre-existing tube that drains the urine from the kidney in order to prevent pain, infection and kidney damage. This should occur every 6-12 weeks, depending on your physician's orders and personal condition. Your urine may be blood tinged, in the bag and from regular urination, for up to 48 hours. If you had a nephroureteral tube exchange today, then this procedure is to replace a pre-existing tube that goes from your back into the kidney and down the ureter to the bladder. This tube may be either capped or have a dependent bag attached like a nephrostomy tube. Please follow these instructions: DIET: Resume previous diet as tolerated ACTIVITY: Wear loose, comfortable clothing. Make sure your tube is secure at all times. Avoid tugging at the tube. PAIN CONTROL: Mild back discomfort on the side of the tube placement may occur for the first 24 hours. You may experience the feeling of the need to urinate. Kfdr-raw-[id number] pain medication should be used for pain or discomfort. Please check with the physician who sent you for this procedure for their specific recommendations. If your pain is not relieved or becomes more severe, notify the physician who sent you for this procedure. IF YOU RECEIVED CONSCIOUS SEDATION (IV SEDATION) & YOU ARE DISCHARGED THE SAME DAY You must have someone drive you home when you leave the hospital. For 24 hours after your procedure, do not do anything where you need to make important decisions. This includes operating machinery, signing important documents, etc. MEDICATION: Please resume on . NEPHROSTOMY CARE: Wash your hands well with soap and water before and after caring for your nephrostomy tube. Keep the skin around the nephrostomy tube dry. If the area does get wet, dry the skin completely. Change the dressing every week, or as needed if it is leaking or the dressing becomes saturated. Keep all the ports of the tube and drainage bag as clean as possible to prevent infection. Empty the drainage bags often via the spout at the bottom of the bag. Turn clockwise. Avoid overfilling. Always empty the bag before bed. Some patients will be required to flush their tubes, please check with ordering physician for instructions and supplies. (You do not need to do this unless specifically instructed by your healthcare provider). TUBE PROBLEMS Call Interventional Radiology IMMEDIATELY if the tube falls out. Call Interventional Radiology if you notice decreased or no urine output or if urine leaks from thedressing site from tube. Call your Urologist if any abnormal bleeding, foul odor or drainage, redness, swelling, worsening pain, or fever above 102F. If the catheter falls out, it can be replaced by the doctor ideally within 24 hours. Do not attemptto put the tube back in yourself. BATHING Avoid swimming. You may shower with the nephrostomy bag attached to the skin, sit in a shallow bath, or sponge bathe while the catheter is in place. Be sure to keep the water level below the dressingwhen tub bathing. Please change your dressing if it gets wet. SPECIFIC INSTRUCTIONS TO CHANGE NEPHROSTOMY TUBE DRESSING Supplies needed: Soap and water Clean, dry towel Nephrostomy bag Clean adhesive dressing Gauze Because the nephrostomy tube is located on your back, you will need someone to assist you in changing the dressing. Wash hands well Remove the old dressing, peeling the edges slowly from skin. As the dressing is pulled away from the skin, support the nephrostomy tube with your free hand to prevent placing tension on the tube and accidentally pulling it out. Wash the area around the nephrostomy tube with soap and water. Gently pat the area dry. Need 2 layers of gauze. One layer in between the skin and the tube. Second layer of gauze goes overthe tube. Then place the clean adhesive dressing over the gauze. Supplies may be obtained at: [facility] [address] [facility] [address] [facility] Any questions or concerns, please contact your physician or Interventional Radiology at [phone] from 8-4:30pm Friday-Friday. If you do not have a follow up appointment scheduled at the time of discharge, please call Interventional Radiology at the number listed above. 04/14/2024 14:00:43 1- [facility] General Discharge Guidelines (07/18/2023) (CUSTOM) VANESSA SAME DAY SURGERY DISCHARGE INSTRUCTIONS PLEASE FOLLOW THE INSTRUCTIONS BELOW MARKED WITH AN X: __X_Regular Diet: Start with clear liquids, then soup and crackers. Gradually add other foods unless otherwise instructed by your surgeon __X_Drink extra fluids ACTIVTY: __X_Since you have had anesthetic, it would be advisable not to drive, drink alcohol, or make majordecisions over the next 24 hours. You may require more rest tonight and tomorrow __X_Do not drive vehicle while taking narcotics and as directed by your Surgeon ____Restrict activity as follows: ____Do not have sexual intercourse. Nothing in the vagina-No tampons or Douching ____No heavy lifting, pushing, or straining ____Elevate operative limb ____Ice as directed __X_Follow all written and verbal instructions given to you by your Doctor ____Other: BATHING/SHOWERING ____Sponge bathe until office visit. ____Sitting in tub of warm water may relieve discomfort ____May tub bathe ____May shower in 24-48 hours with clean linen unless otherwise instructed by your Doctor DRESSING: ____Keep operative area clean and dry ____Check the operative area for signs of bleeding. Apply pressure to the bleeding site if necessary. ____Change drip pad as needed ____Wear scrotal support for comfort WATCH FOR SIGNS OF INFECTION: (Usually appears 36-48 hours after surgery) Increased temperature (101 degrees Fahrenheit or higher) Redness or swelling Increased pain Foul odor or drainage If you have any questions, please call your doctor at the number listed on your follow-up instructions. Follow Up Care 03/10/2024 10:15:11 With:OLE PACE MD Address: [address] [place] [phone] When: Unknown Comments:Follow-up as scheduled [facility] 06-12-2024 Note* Dustin Palm RN: SIGN, AUTHOR, PERFORM Event Display: IR Procedure Record Authored Date: IR Procedure Record Summary Primary Physician: Finalized Date/Time: 04/14/24 13:19:12 Pt. Name: LALY NAVAS D.O.B./Sex: 1990 Female Med Rec #: [id number] Physician: Financial #: [id number] Pt. Type: S Room/Bed: 0110/A Admit/Disch: 04/14/24 11:12:45 - Institution: Allergies identified in patient's electronic medical record at time of printing on 04/14/24 Entry 1 Entry 2 Entry 3 Substance Haldol Oranges penicillin Reaction Type Allergy Allergy Allergy Last Modified By: Fany Ruelas LPN, Kimberly V. RN Holt, Kimberly V. RN 11/19/23 09:39:23 07/21/23 10:11:02 07/21/23 10:10:45 Case Attendance- IR Entry 1 Entry 2 Entry 3 Case Attendee TADEO LEIJA PA-C, Systems Integrator Karolina Reyes Role Performed Radiology PA/RA Scrub Technologist Circulating Technologist Details Time In 04/14/24 12:44:00 04/14/24 12:44:00 04/14/24 12:44:00 Time Out 04/14/24 13:25:00 04/14/24 13:25:00 04/14/24 13:25:00 Procedure/Preference IR Nephrostomy Exchange IR Nephrostomy Exchange IR Nephrostomy Exchange Card (SN) (SN) (SN) Last Modified By: Dustin Palm RN, Aaron RN Beans, Aaron RN 04/14/24 13:14:16 04/14/24 13:14:16 04/14/24 13:14:16 Entry 4 Entry 5 Case Attendee Dustin Palm RN, JACKSON APRN-SCALEMAKER Role Performed Western Philosophy Professor 1 SCALEMAKER Details Time In 04/14/24 12:44:00 04/14/24 12:44:00 Time Out 04/14/24 13:25:00 04/14/24 13:25:00 Procedure/Preference IR Nephrostomy Exchange IR Nephrostomy Exchange Card (SN) (SN) Last Modified By: Dustin Palm RN, Aaron RN 04/14/24 13:14:16 04/14/24 13:14:16 Radiology Procedures- IR Entry 1 Procedure/Preference IR Nephrostomy Exchange Actual Procedure IR Nephrosotomy Exchange Card (SN) Primary Procedure Yes Primary Surgeon TADEO LEIJA PA-C Anesthesia/Sedation Local, MAC Type Additional Procedure Times Start 04/14/24 12:48:00 Stop 04/14/24 13:14:00 Specialty Service SN Radiology Procedure EBL 2 mL Last Modified By: Dustin Palm RN 04/14/24 13:16:24 Radiology Procedure Details - IR Entry 1 Radiology Sedation Case Times Sedation Total Time 0 minutes Radiology - Fluid/Drainage Radiology Contrast Contrast Used? Yes Dose 5 mL Medication ISOVUE 300 50ML 10/CA 1315-30 Radiology Flouroscopy Fluoroscopy Used? Yes Fluoro Dose (mGy) 2.90 Fluoro Time 0.9 minutes Radiology Local Local Used? Yes Local Type: lidocaine 2% Local Dose 2cc Radiology Procedure Site Site/Location Left flank Site Condition No complications Suture 2.0 Ethibond Suture Dressing Type Bioclusive 4 X 5, Gauze sponge 4 X 4 Technologist Notes 10F x 35 M-drain Left flank under general anesthesia Last Modified By: Dustin Palm RN 04/14/24 13:17:08 General Case Data - IR Entry 1 Case Information Room AH IR 17 Case Level IR Level 3 Wound Class None Specialty SN Radiology Procedure ASA Class None Diagnosis Preop Diagnosis hydronephrosis Postop Same As Preop Yes Postop Diagnosis hydronephrosis Last Modified By: Dustin Palm RN 04/14/24 12:53:24 Procedure Case Times- IR Entry 1 Patient In Procedure Patient In OR 04/14/24 12:44:00 Patient Out of OR 04/14/24 13:25:00 Procedure Start/Stop Procedure Start Time 04/14/24 12:48:00 Procedure Stop Time 04/14/24 13:14:00 Last Modified By: Dustin Palm RN 04/14/24 13:14:14 Immediate Post Procedure Note - IR Entry 1 Immediate Post Yes Findings left neph tube change Procedure Note displayed for Physician to review Closure Technique Closure Technique Other than Primary Last Modified By: Dustin Palm RN 04/14/24 13:16:13 Immediate Post Procedure Note - IR Signed By: TADEO LEIJA PA-C 04/14/24 13:15 Allergy Information- IR Entry 1 Allergies Reviewed? Yes Allergies Reviewed Patient With Last Modified By: Dustin Palm RN 04/14/24 12:47:21 Radiology Protocols/Time Out- IR Entry 1 Preprocedure Clinician Verifies Correct patient ID When Clinically Confirmation of correct using name & date Indicated side(s) and site(s), or MRN, Accurate Correct diagnostic and procedure, complete radiology tests Informed Consent, H & P available, Required update immediately blood products, prior to procedure, if implants, devices applicable, Sync button and/or special on equipment available OR/Procedure Room/Bedside Time 04/14/24 12:48:00 Clinician Verifies Correct patient identity including EMR & records using name and date or medical record number, Accurate procedure consent form, Correct patient position, Necessary equipment is available, Anticipated non-routine events with surgical team (case duration, estimated blood loss, patient specific concerns)., Parada patient factors for recovery and management identified with surgical team. When Applicable Confirmation correct Team Members TADEO LEIJA PA-C, side and site marked, Present for Time Out Sandi Systems IntegratorMendel Fortune Relevant images and Moi Jenkins Jacque M., results are properly Dustin Palm RN, labeled and BREANN BRAVO appropriately LITIGATION ATTORNEY ASSOCIATE-SCALEMAKER displayed, Alcohol based prep dry Instrument Sterility Procedure IR Nephrostomy Exchange (SN) Last Modified By: Dustin Palm RN 04/14/24 12:52:45 Skin Prep- IR Entry 1 Procedure IR Nephrostomy Exchange (SN) Skin Prep Prep Area Flank Side Left By Sam Junior A Prep Agents Chloraprep Hair Removal Method N/A Last Modified By: Dustin Palm RN 04/14/24 13:05:48 Patient Positioning- IR Entry 1 Procedure IR Nephrostomy Exchange Body Position OP Prone (SN) Feet Uncrossed? Yes Pressure Points Yes Checked Last Modified By: Dustin Palm RN 04/14/24 12:52:55 Radiology Procedure Plan - IR Entry 1 Radiology - Nursing Care Plan Outcome Statement The patient Outcome Statement The patient receives demonstrates knowledge Cont. appropriate of the expected medication(s), safely responses to the administered during the operative/invasive perioperative/invasive procedure., The period., The patient is patient's value system, free from signs and lifestyle, ethnicity, symptoms of injury and culture are caused by extraneous considered, respected, objects (equipment, and incorporated in the instrumentation, perioperative plan of sponges, or sharps). care., The patient is free from signs and symptoms of infection., The patient is free from signs and symptoms of injury related to positioning. Radiology - Action Plan Outcomes Met? Yes Mottler Operator Dustin Palm RN Completing Procedure Plan Last Modified By: Dustin Palm RN 04/14/24 12:53:11 Case Comments <None> Finalized By: Dustin Palm RN Document Signatures Signed By: Dustin Palm RN 04/14/24 13:18 [facility] 06-12-2024 Procedure note IR Brief Post Procedure Note Preprocedure Dx: cervical cancer with hydronephrosis Post Procedure Dx: Same Procedure: LEFT nephrostomy tube exchange Anesthesia: MAC and Local EBL: Minimal Complications: None Status: Unchanged Findings: 1. Successful LEFT nephrostomy tube exchange. Plan: 1. Attached to dependent drainage bag. Full report to follow. Orders in Cerner. Tadeo Leija PA-C Interventional Radiology Pager: [phone] IR dept: [id number] Available on itzat Digitally Signed by TADEO LEIJA PA-C on 04/14/2024 02:50 PM [facility] [id number] Summary of episode note Discharge Instructions Thank you for allowing [facility] to assist you with your healthcare needs. The following is importantdischarge information regarding your hospital visit. Your Care Team OTHER, PROVIDER NOT SPECIFIED What to do next Scheduled Follow-Up Appointments Appointment Type When With Where Contact Information StatusSO OV Follow Up 04/19/2024 11:00 AM EDT [facility] [address] [place] [phone] Confirmed PALL OV Follow Up 04/28/2024 11:30 AM EDT OLE PACE MD [facility] Confirmed Follow Up Appointments Follow Up with OLE PACE MD Where:[address] [place] [address] [place] [phone] Additional Information: Follow-up as scheduled Allergies Haldol Tongue swelling Oranges Tongue swelling, Difficulty breathing penicillin Hives Medications Please ask your primary doctor or pharmacist before taking any other medication not listed, including over the counter drugs, herbal medications, vitamins and or supplements as they may interact withyour home medications. What How Much When Why Instructions Last Dose Unchanged acetaminophen 650 Milligram As needed for as needed for pain Unchanged escitalopram (Lexapro 20 mg oral tablet) 1 tab(s) by mouth Once a day Unchanged ibuprofen (Motrin IB 200 mg oral tablet) 2 tab(s) by mouth Every 4 hours as needed for as needed for pain Unchanged LORazepam (Ativan 1 mg oral tablet) 1 tab(s) by mouth Two (2) times a day as needed for as needed for anxiety Palliative care patient THO (generalized anxiety disorder) Duration: 30 Days Unchanged LORazepam (LORazepam 1 mg oral tablet) 1 tab(s) by mouth Two (2) times a day Cancer related pain History of cervical cancer Unchanged naloxone (naloxone 4 mg/ 0.1 mL nasal spray) 1 spray(s) Intranasal As Directed as needed for see pharmacy notes may repeat every 2 to 3 minutes until patient responds Unchanged ondansetron (Zofran 4 mg oral tablet) 1 tab(s) by mouth Every 8 hours as needed for Nausea/Vomiting Duration: 15 Days Unchanged oxyCODONE (oxyCODONE 5 mg oral tablet ( IMMEDIATE release )) 2 tab(s) by mouth Every 8 hours as needed for for pain Cancer related pain History of cervical cancer Please take this list to your next doctor s visit. Bring all medications you take, including over the counter medications, herbals and other supplements with you to your doctor s visit. Patients and families are reminded to discard old lists and to update any records with all medication providers or retail pharmacies. Education Materials SAVANNAH Nephrostomy/Nephroureteral Tube Exchange Discharge Instructions Interventional Radiology [facility] [address] [place] [address] The procedure that you had done today is called a nephrostomy tube exchange. This is a procedure toreplace a pre-existing tube that drains the urine from the kidney in order to prevent pain, infection and kidney damage. This should occur every 6-12 weeks, depending on your physician's orders and personal condition. Your urine may be blood tinged, in the bag and from regular urination, for up to 48 hours. If you had a nephroureteral tube exchange today, then this procedure is to replace a pre-existing tube that goes from your back into the kidney and down the ureter to the bladder. This tube may be either capped or have a dependent bag attached like a nephrostomy tube. Please follow these instructions: DIET: Resume previous diet as tolerated ACTIVITY: Wear loose, comfortable clothing. Make sure your tube is secure at all times. Avoid tugging at the tube. PAIN CONTROL: Mild back discomfort on the side of the tube placement may occur for the first 24 hours. You may experience the feeling of the need to urinate. Xzmr-nki-btkdetw pain medication should be used for pain or discomfort. Please check with the physician who sent you for this procedure for their specific recommendations. If your pain is not relieved or becomes more severe, notify the physician who sent you for this procedure. IF YOU RECEIVED CONSCIOUS SEDATION (IV SEDATION) & YOU ARE DISCHARGED THE SAME DAY You must have someone drive you home when you leave the hospital. For 24 hours after your procedure, do not do anything where you need to make important decisions. This includes operating machinery, signing important documents, etc. MEDICATION: Please resume on . NEPHROSTOMY CARE: Wash your hands well with soap and water before and after caring for your nephrostomy tube. Keep the skin around the nephrostomy tube dry. If the area does get wet, dry the skin completely. Change the dressing every week, or as needed if it is leaking or the dressing becomes saturated. Keep all the ports of the tube and drainage bag as clean as possible to prevent infection. Empty the drainage bags often via the spout at the bottom of the bag. Turn clockwise. Avoid overfilling. Always empty the bag before bed. Some patients will be required to flush their tubes, please check with ordering physician for instructions and supplies. (You do not need to do this unless specifically instructed by your healthcare provider). TUBE PROBLEMS Call Interventional Radiology IMMEDIATELY if the tube falls out. Call Interventional Radiology if you notice decreased or no urine output or if urine leaks from thedressing site from tube. Call your Urologist if any abnormal bleeding, foul odor or drainage, redness, swelling, worsening pain, or fever above 102F. If the catheter falls out, it can be replaced by the doctor ideally within 24 hours. Do not attemptto put the tube back in yourself. BATHING Avoid swimming. You may shower with the nephrostomy bag attached to the skin, sit in a shallow bath, or sponge bathe while the catheter is in place. Be sure to keep the water level below the dressingwhen tub bathing. Please change your dressing if it gets wet. SPECIFIC INSTRUCTIONS TO CHANGE NEPHROSTOMY TUBE DRESSING Supplies needed: Soap and water Clean, dry towel Nephrostomy bag Clean adhesive dressing Gauze Because the nephrostomy tube is located on your back, you will need someone to assist you in changing the dressing. Wash hands well Remove the old dressing, peeling the edges slowly from skin. As the dressing is pulled away from the skin, support the nephrostomy tube with your free hand to prevent placing tension on the tube and accidentally pulling it out. Wash the area around the nephrostomy tube with soap and water. Gently pat the area dry. Need 2 layers of gauze. One layer in between the skin and the tube. Second layer of gauze goes overthe tube. Then place the clean adhesive dressing over the gauze. Supplies may be obtained at: [facility] [address] [facility] [address] [facility] Any questions or concerns, please contact your physician or Interventional Radiology at [phone] from 8-4:30pm Friday-Friday. If you do not have a follow up appointment scheduled at the time of discharge, please call Interventional Radiology at the number listed above. [facility] SAME DAY SURGERY DISCHARGE INSTRUCTIONS PLEASE FOLLOW THE INSTRUCTIONS BELOW MARKED WITH AN X: __X_Regular Diet: Start with clear liquids, then soup and crackers. Gradually add other foods unless otherwise instructed by your surgeon __X_Drink extra fluids ACTIVTY: __X_Since you have had anesthetic, it would be advisable not to drive, drink alcohol, or make majordecisions over the next 24 hours. You may require more rest tonight and tomorrow __X_Do not drive vehicle while taking narcotics and as directed by your Surgeon ____Restrict activity as follows: ____Do not have sexual intercourse. Nothing in the vagina-No tampons or Douching ____No heavy lifting, pushing, or straining ____Elevate operative limb ____Ice as directed __X_Follow all written and verbal instructions given to you by your Doctor ____Other: BATHING/SHOWERING ____Sponge bathe until office visit. ____Sitting in tub of warm water may relieve discomfort ____May tub bathe ____May shower in 24-48 hours with clean linen unless otherwise instructed by your Doctor DRESSING: ____Keep operative area clean and dry ____Check the operative area for signs of bleeding. Apply pressure to the bleeding site if necessary. ____Change drip pad as needed ____Wear scrotal support for comfort WATCH FOR SIGNS OF INFECTION: (Usually appears 36-48 hours after surgery) Increased temperature (101 degrees Fahrenheit or higher) Redness or swelling Increased pain Foul odor or drainage If you have any questions, please call your doctor at the number listed on your follow-up instructions. Additional Information VACCINATE! IT SAVES LIVES! Members of the community who have not yet received the COVID-19 vaccine and would like to receive it can visit one of [facility] vaccine clinics. There are many vaccine clinic locations within the [facility]. For locations and available times, please visit [email or web address].[place].gov/. It is important to note that some COVID mobile vaccine clinics are held outdoors and may be canceled in rainy or stormy conditions. To learn more about pediatric vaccinations (ages 5-11), we invite you to visit the [facility] webpage. https://www.PlayMobs.org/pages/1933-Zrlzm-Oihanknbckx-Yaejdclgsw-Xuefy-Rpg stions.htmlTo learn more about the COVID-19 vaccine, we invite you to visit the CDC website for a list of frequently asked questions.https://www.cdc.gov/coronavirus/2019-ncov/vaccines/faq.html [facility] Patient Portal Access Instructions: Stay connected with your healthcare team and access your personal medical information anytime with the [facility] Patient Portal. Please follow the directions below to create your [employer] account: 1.Access the email account you provided upon registration to the hospital/physician office.2.Look for an invitation email from [facility].3.Open the email and access the invitation link: AcceptInvitation to [employer].4.Fill in the required quintero to create your account. To access your account, visit [email or web address]. Click the blue button labeled Access Patient Portal and then log in with the username and password that you created in the steps above. You will be able to view your test results, lab results, a summary of your visits, upcoming appointments and more. There is also a convenient messaging option where you can send secure messages to your p cathyvider. In addition, you will have the ability to download any documents or summaries to your computer and/or send the information securely to a physician. Remember that your healthcare information is confidential, so carefully consider who you will allowto register on the [facility] for access to your information. You can also access the [facility] on the [facility] joya. Simply click on Patient Portal and then log into your account. If you would like to receive a full copy of your medical records, please contact the [facility] Medical Records Department by calling [phone], Friday through Friday between 8 a.m. and 4:30 p.m. HOW TO SAFELY DISPOSE OF PRESCRIPTION MEDICATIONS Please use one of the following methods to safely dispose of your unused medications. 1.Use a drug disposal kit: the drug disposal pouch allows you to safely discard your old and unuseddrugs. Ask your nurse to give you one when you are discharged.2.Visit a local take-back location: Many local pharmacies and police departments have programs that collect old and unwanted prescriptiondrugs. Call your local pharmacy or go to http://Wishabi.ConsumerBell/0I3Tl0e to find one close to you.3.Make use of household items: Use cat litter or old coffee grounds to dispose medications if other options arenot available. Mix your drugs with these household products, seal them in an airtight container andthrow it into the garbage. Call [facility]: [phone] to be sure your drugs can be disposed of in this way. Some medicines may require a different approach.4.Never flush your medications down the toilet. IF YOU HAVE BEEN PRESCRIBED AN OPIOID FOR PAIN If you have been prescribed an opioid (such as hydrocodone, oxycodone or morphine), it is critical to understand the possible side effects and risks of opioid pain medications. Even when taken as directed, opioids can have several side effects including: Tolerance, meaning you might need to take more of a medication for the same pain relief. Nausea, vomiting and/or constipation. Sleepiness, dizziness, dry mouth, confusion, depression or itching. Physical dependence, meaning you have withdrawal symptoms when a medication is stopped, can develop within a few days. KNOW YOUR RESPONSIBILITIES It is important to know exactly how much and how often to take the opioid pain medications you are prescribed. Never take opioids in higher amounts or more often than prescribed. Do not combine opioids with alcohol or other drugs that cause drowsiness, such as benzodiazepines, also known as benzos, including diazepam and alprazolam, muscle relaxants or sleep aids. Never sell or share prescription opioids. This is illegal. Store opioids in a secure place and out of reach of others (including children, family, friends and visitors). The last page of this document has been signed and retained as a CHART COPY. Signatures Patient Education Materials Radiology- Nephrostomy/Nephroureteral Tube Exchange 12/26/2022(CUSTOM) 1- [facility] General Discharge Guidelines (07/18/2023) (CUSTOM) Medication Leaflets My discharge plan and instructions have been reviewed and explained to me and I,LALY NAVAS understand my current condition and have read and understand these discharge instructions. I have received a written copy of the plan/instructions. If I have questions, I am aware that I should contact my doctor. 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 Signature: Date/Time: Relationship to Patient: Witness Name/Signature: Date/Time: [facility] [id number] Evaluation + Plan noteExtracted from: Title:IR Pre-Procedure H&P Author:MAG MCGARRY PA-C Date:04/14/24 Interventional Radiology Focused Preprocedure History/Physical Reason for Visit hydronephrosis History of Presenting Illness/Planned IR Procedure Image Guided LEFT Nephrostomy Tube Exchange with possible intervention Allergies (3) ActiveSeverityReaction penicillinHives OrangesDifficulty breathing, Tongue swelling HaldolTongue swelling Home Medications (8) Active acetaminophen 650 mg, PRN Ativan 1 mg oral tablet 1 mg = 1 tab(s), PRN, Oral, BID Lexapro 20 mg oral tablet 20 mg = 1 tab(s), Oral, qDay LORazepam 1 mg oral tablet 1 mg = 1 tab(s), Oral, BID Motrin IB 200 mg oral tablet 400 mg = 2 tab(s), PRN, Oral, q4h naloxone 4 mg/0.1 mL nasal spray 4 mg = 1 spray(s), PRN, Intranasal, AsDirected oxyCODONE 5 mg oral tablet ( IMMEDIATE release ) 10 mg = 2 tab(s), PRN, Oral, q8h Zofran 4 mg oral tablet 4 mg = 1 tab(s), PRN, Oral, q8h Problem List/Past Medical History Fall COVID-19 Acute kidney injury Anxiety Asthma Bilateral flank pain Bradycardia Cancer related pain Cervical cancer Complicated UTI (urinary tract infection) Contact lenses DVT prophylaxis Decreased appetite Dehydration Glasses History of chemotherapy History of radiation therapy Hx of cervical cancer Hydronephrosis, left Left flank pain Moderate protein-calorie malnutrition Nausea and vomiting Nephrostomy status Obstructive uropathy Palliative care encounter Port-A-Cath in place Premature menopause Pyelonephritis Surgical History Nephrostomy tube: 10/05/23 Nephrostomy with tube drainage: 07/2023 Nephrostomy with tube drainage: 01/10/21 JJ stent: 11/15/20 Radiation: 06/2020 Cervical biopsy: 2019 Tumor cells, benign: 2001 Family History Mother: Asthma; Breast cancer; COPD - Chronic obstructive pulmonary disease; Heart attack; Heart disease; Hypertension; Kidney stone Father: Alcohol abuse; Stroke; Substance abuse Sister: Cancer Grandparent: Diabetes; Stroke Social History Alcohol Risk Assessment: Denies Alcohol Use; Details: Use: Past. Type: Beer. Frequency: 1-2 times per week. Employment/School Details: Status: Employed. Home/Environment Risk Assessment: No Risk; Details: Living situation: Home/Independent. Safe place to go: Yes. Financial concerns: No. Domestic Concerns: None. Lives In: Mobile home. Current Home Treatments None. Professional Skilled Services or Special Community Resources None. Marital Status: Unmarried. Nutrition/Health Risk Assessment: No Risk; Details: Type of diet: Regular. Appetite Poor. Details: Type of diet: Regular. Appetite Fair. Eating Difficulties None. Caffeine intake amount: 1 can pop per day. Sexual Details: Sexually active: Yes. First active at age: 18 Years. Current partners: 1. Number of lifetime partners: 7. Self described orientation: Straight or heterosexual. Other contraceptive use: condoms. History of sexual abuse: No. Gender Identity: Identifies as female. Substance Abuse Risk Assessment: Denies Substance Abuse; Details: Use: Never. Tobacco Details: Nicotine Use: Former smoker, quit more than 30 days ago. Exposure to Tobacco Smoke Lives in non-smoking home. Started at age: 19 Years. Stopped at age: 32 Years. Smokeless Tobacco Use: Never. Details: Nicotine Use: Former smoker, quit more than 30 days ago. Type: Cigarettes. Tobacco use per day: 10. Number of years: 10. Started at age: 19 Years. Stopped at age: 32 Years. Previous treatment: None. Ready to change: Yes. Physical Exam Vitals: [id number] (11:36) Systolic Blood Auziczjo966 (11:36) Diastolic Blood Hxqrppuf54 (11:36) Pulse79 (11:36) UvL740 (11:36) Respiratory RateNo result General: Alert, cooperative. The remainder of the physical exam is noncontributory. Labs Anticoagulation Labs No qualifying data available. No qualifying data available. Assessment/Treatment Plan Image Guided LEFT Nephrostomy Tube Exchange with possible intervention Post Procedure Discharge Plan Patient to be discharged home. Milagro Mcgarry PA-C Interventional Radiology Pager [phone] IR Dept [id number] Available on Care Aware Future Appointments Appointment Date:04/19/2024 11:00:00 AM Scheduled Provider: Location:[facility] Appointment Type:SO OV Follow Up Appointment Date:04/28/2024 11:30:00 AM Scheduled Provider:OLE PACE MD Location:[facility] Appointment Type:PALL OV Follow Up Future Scheduled Tests Laboratory* Clostridium difficile (PCR) 03/04/24 * Ova + Parasite Exam 03/04/24 Radiology* IR Nephrostomy Tube Change Lt Guide 09/04/23 [facility] 06-12-2024 Note IR Procedure Record Summary Primary Physician: Finalized Date/Time: 04/14/24 13:19:12 Pt. Name: LALY NAVAS Austen GardnerB./Sex: 1990 Female Med Rec #: [id number] Physician: Financial #: [id number] Pt. Type: S Room/Bed: 0110/A Admit/Disch: 04/14/24 11:12:45 - Institution: Allergies identified in patient's electronic medical record at time of printing on 04/14/24 Entry 1 Entry 2 Entry 3 Substance Haldol Oranges penicillin Reaction Type Allergy Allergy Allergy Last Modified By: Fany Ruelas LPN, Kimberly V. RN Holt, Kimberly V. RN 11/19/23 09:39:23 07/21/23 10:11:02 07/21/23 10:10:45 Case Attendance- IR Entry 1 Entry 2 Entry 3 Case Attendee TADEO LEIJA PA-C, Systems Integrator Karolina Reyes Role Performed Radiology PA/RA Scrub Technologist Circulating Technologist Details Time In 04/14/24 12:44:00 04/14/24 12:44:00 04/14/24 12:44:00 Time Out 04/14/24 13:25:00 04/14/24 13:25:00 04/14/24 13:25:00 Procedure/Preference IR Nephrostomy Exchange IR Nephrostomy Exchange IR Nephrostomy Exchange Card (SN) (SN) (SN) Last Modified By: Dustin Palm RN, Aaron RN Beans, Aaron RN 04/14/24 13:14:16 04/14/24 13:14:16 04/14/24 13:14:16 Entry 4 Entry 5 Case Attendee Dustin Palm RN, JACKSON LITIGATION ATTORNEY ASSOCIATE-SCALEMAKER Role Performed Western Philosophy Professor 1 SCALEMAKER Details Time In 04/14/24 12:44:00 04/14/24 12:44:00 Time Out 04/14/24 13:25:00 04/14/24 13:25:00 Procedure/Preference IR Nephrostomy Exchange IR Nephrostomy Exchange Card (SN) (SN) Last Modified By: Dustin Palm RN, Aaron RN 04/14/24 13:14:16 04/14/24 13:14:16 Radiology Procedures- IR Entry 1 Procedure/Preference IR Nephrostomy Exchange Actual Procedure IR Nephrosotomy Exchange Card (SN) Primary Procedure Yes Primary Surgeon TADEO LEIJA PA-C Anesthesia/Sedation Local, MAC Type Additional Procedure Times Start 04/14/24 12:48:00 Stop 04/14/24 13:14:00 Specialty Service SN Radiology Procedure EBL 2 mL Last Modified By: Dustin Palm RN 04/14/24 13:16:24 Radiology Procedure Details - IR Entry 1 Radiology Sedation Case Times Sedation Total Time 0 minutes Radiology - Fluid/Drainage Radiology Contrast Contrast Used? Yes Dose 5 mL Medication ISOVUE 300 50ML 10/CA 1315-30 Radiology Flouroscopy Fluoroscopy Used? Yes Fluoro Dose (mGy) 2.90 Fluoro Time 0.9 minutes Radiology Local Local Used? Yes Local Type: lidocaine 2% Local Dose 2cc Radiology Procedure Site Site/Location Left flank Site Condition No complications Suture 2.0 Ethibond Suture Dressing Type Bioclusive 4 X 5, Gauze sponge 4 X 4 Technologist Notes 10F x 35 M-drain Left flank under general anesthesia Last Modified By: Dustin Palm RN 04/14/24 13:17:08 General Case Data - IR Entry 1 Case Information Room AH IR 17 Case Level IR Level 3 Wound Class None Specialty SN Radiology Procedure ASA Class None Diagnosis Preop Diagnosis hydronephrosis Postop Same As Preop Yes Postop Diagnosis hydronephrosis Last Modified By: Dustin Palm RN 04/14/24 12:53:24 Procedure Case Times- IR Entry 1 Patient In Procedure Patient In OR 04/14/24 12:44:00 Patient Out of OR 04/14/24 13:25:00 Procedure Start/Stop Procedure Start Time 04/14/24 12:48:00 Procedure Stop Time 04/14/24 13:14:00 Last Modified By: Dustin Palm RN 04/14/24 13:14:14 Immediate Post Procedure Note - IR Entry 1 Immediate Post Yes Findings left neph tube change Procedure Note displayed for Physician to review Closure Technique Closure Technique Other than Primary Last Modified By: Dustin Palm RN 04/14/24 13:16:13 Immediate Post Procedure Note - IR Signed By: TADEO LEIJA PA-C 04/14/24 13:15 Allergy Information- IR Entry 1 Allergies Reviewed? Yes Allergies Reviewed Patient With Last Modified By: Dustin Palm RN 04/14/24 12:47:21 Radiology Protocols/Time Out- IR Entry 1 Preprocedure Clinician Verifies Correct patient ID When Clinically Confirmation of correct using name & date Indicated side(s) and site(s), or MRN, Accurate Correct diagnostic and procedure, complete radiology tests Informed Consent, H & P available, Required update immediately blood products, prior to procedure, if implants, devices applicable, Sync button and/or special on equipment available OR/Procedure Room/Bedside Time 04/14/24 12:48:00 Clinician Verifies Correct patient identity including EMR & records using name and date or medical record number, Accurate procedure consent form, Correct patient position, Necessary equipment is available, Anticipated non-routine events with surgical team (case duration, estimated blood loss, patient specific concerns)., Parada patient factors for recovery and management identified with surgical team. When Applicable Confirmation correct Team Members TADEO LEIJA PA-C, side and site marked, Present for Time Out Sam Junior Relevant images and A, Karolina Prater, results are properly Dustin Palm RN, labeled and BREANN BRAVO appropriately LITIGATION ATTORNEY ASSOCIATE-SCALEMAKER displayed, Alcohol based prep dry Instrument Sterility Procedure IR Nephrostomy Exchange (SN) Last Modified By: Dustin Palm RN 04/14/24 12:52:45 Skin Prep- IR Entry 1 Procedure IR Nephrostomy Exchange (SN) Skin Prep Prep Area Flank Side Left By Sam Junior A Prep Agents Chloraprep Hair Removal Method N/A Last Modified By: Dustin Palm RN 04/14/24 13:05:48 Patient Positioning- IR Entry 1 Procedure IR Nephrostomy Exchange Body Position OP Prone (SN) Feet Uncrossed? Yes Pressure Points Yes Checked Last Modified By: Dustin Palm RN 04/14/24 12:52:55 Radiology Procedure Plan - IR Entry 1 Radiology - Nursing Care Plan Outcome Statement The patient Outcome Statement The patient receives demonstrates knowledge Cont. appropriate of the expected medication(s), safely responses to the administered during the operative/invasive perioperative/invasive procedure., The period., The patient is patient's value system, free from signs and lifestyle, ethnicity, symptoms of injury and culture are caused by extraneous considered, respected, objects (equipment, and incorporated in the instrumentation, perioperative plan of sponges, or sharps). care., The patient is free from signs and symptoms of infection., The patient is free from signs and symptoms of injury related to positioning. Radiology - Action Plan Outcomes Met? Yes Mottler Operator Dustin Palm RN Completing Procedure Plan Last Modified By: Dustin Palm RN 04/14/24 12:53:11 Case Comments Finalized By: Dustin Palm RN Document Signatures Signed By: Dustin Palm RN 04/14/24 13:18 [facility] [id number] Note ORIGINAL PROCEDURE: Percutaneous left nephrostomy tube exchange with fluoroscopy CLINICAL STATEMENT: History of cervical cancer with left hydronephrosis HUMAN RESOURCES DIRECTOR: Tadeo Leija PA-C MATERIALS: 10 Fr X 35 cm nephrostomy drainage catheter Bentson wire Drainage bag 2-0 Ethibond CONTRAST: 5 mL ANESTHESIA: MAC and local FLUORO: 0.9 minutes AIR KERMA DOSE: 2.90 mGy The procedure, risks, and alternatives, were discussed and all questions were answered. Informed consent obtained. Accompanying paperwork was verified for accuracy. Directed history and physical exam performed prior to the procedure. Medication reconciliation performed by nursing personnel. Procedure was performed using a cap, sterile gown, sterile gloves, a large sterile sheet, hand hygiene and 2% chlorhexidine for cutaneous antisepsis. The patient was positioned on the table and prepped and draped in usual sterile fashion. A critical pause was performed with assisting personnel just prior to the procedure with the patient's identity confirmed using 2 identifiers, confirming site and side. Sausage Stuffer image with contrast injection demonstrates stable appearance of the nephrostomy tube. After cutting the hub, the old catheter was exchanged for a new one over a wire and the distal loop formed in the renal pelvis, confirmed with contrast injection. The string was removed in its entirety. The catheter was flushed and attached to dependent drainage bag. COMPLICATIONS: None EBL: None CONDITION: unchanged IMPRESSION: Successful left nephrostomy tube exchange. Procedure was performed by Tadeo Leija PA-C. I concur with the contents of this report. Interpreted by: Viral Manuel MD Preliminary Report By: Tadeo Leija PA-C Electronically signed By Viral Manuel MD Dictated Date: 04/14/2024 4:57:29 PM Prelim Date: 04/14/2024 4:58:35 PM Sign Date: 04/14/2024 5:53:55 PM Ordering Provider: OLE [facility]06-12-2024 History and physical note Interventional Radiology Focused Preprocedure History/Physical Reason for Visit hydronephrosis History of Presenting Illness/Planned IR Procedure Image Guided LEFT Nephrostomy Tube Exchange with possible intervention Allergies (3) ActiveSeverityReaction penicillinHives OrangesDifficulty breathing, Tongue swelling HaldolTongue swelling Home Medications (8) Active acetaminophen 650 mg, PRN Ativan 1 mg oral tablet 1 mg = 1 tab(s), PRN, Oral, BID Lexapro 20 mg oral tablet 20 mg = 1 tab(s), Oral, qDay LORazepam 1 mg oral tablet 1 mg = 1 tab(s), Oral, BID Motrin IB 200 mg oral tablet 400 mg = 2 tab(s), PRN, Oral, q4h naloxone 4 mg/0.1 mL nasal spray 4 mg = 1 spray(s), PRN, Intranasal, AsDirected oxyCODONE 5 mg oral tablet ( IMMEDIATE release ) 10 mg = 2 tab(s), PRN, Oral, q8h Zofran 4 mg oral tablet 4 mg = 1 tab(s), PRN, Oral, q8h Problem List/Past Medical History Fall COVID-19 Acute kidney injury Anxiety Asthma Bilateral flank pain Bradycardia Cancer related pain Cervical cancer Complicated UTI (urinary tract infection) Contact lenses DVT prophylaxis Decreased appetite Dehydration Glasses History of chemotherapy History of radiation therapy Hx of cervical cancer Hydronephrosis, left Left flank pain Moderate protein-calorie malnutrition Nausea and vomiting Nephrostomy status Obstructive uropathy Palliative care encounter Port-A-Cath in place Premature menopause Pyelonephritis Surgical History Nephrostomy tube: 10/05/23 Nephrostomy with tube drainage: 07/2023 Nephrostomy with tube drainage: 01/10/21 JJ stent: 11/15/20 Radiation: 06/2020 Cervical biopsy: 2019 Tumor cells, benign: 2001 Family History Mother: Asthma; Breast cancer; COPD - Chronic obstructive pulmonary disease; Heart attack; Heart disease; Hypertension; Kidney stone Father: Alcohol abuse; Stroke; Substance abuse Sister: Cancer Grandparent: Diabetes; Stroke Social History Alcohol Risk Assessment: Denies Alcohol Use; Details: Use: Past. Type: Beer. Frequency: 1-2 times per week. Employment/School Details: Status: Employed. Home/Environment Risk Assessment: No Risk; Details: Living situation: Home/Independent. Safe place to go: Yes. Financial concerns: No. Domestic Concerns: None. Lives In: Mobile home. Current Home Treatments None. Professional Skilled Services or Special Community Resources None. Marital Status: Unmarried. Nutrition/Health Risk Assessment: No Risk; Details: Type of diet: Regular. Appetite Poor. Details: Type of diet: Regular. Appetite Fair. Eating Difficulties None. Caffeine intake amount: 1 can pop per day. Sexual Details: Sexually active: Yes. First active at age: 18 Years. Current partners: 1. Number of lifetime partners: 7. Self described orientation: Straight or heterosexual. Other contraceptive use: condoms. History of sexual abuse: No. Gender Identity: Identifies as female. Substance Abuse Risk Assessment: Denies Substance Abuse; Details: Use: Never. Tobacco Details: Nicotine Use: Former smoker, quit more than 30 days ago. Exposure to Tobacco Smoke Lives in non-smoking home. Started at age: 19 Years. Stopped at age: 32 Years. Smokeless Tobacco Use: Never. Details: Nicotine Use: Former smoker, quit more than 30 days ago. Type: Cigarettes. Tobacco use perday: 10. Number of years: 10. Started at age: 19 Years. Stopped at age: 32 Years. Previous treatment: None. Ready to change: Yes. Physical Exam Vitals: Itdgdbvjhah31.2 (11:36) Systolic Blood Wwlioyva392 (11:36) Diastolic Blood Ltklrzcg89 (11:36) Pulse79 (11:36) MvF915 (11:36) Respiratory RateNo result General: Alert, cooperative. The remainder of the physical exam is noncontributory. Labs Anticoagulation Labs No qualifying data available. No qualifying data available. Assessment/Treatment Plan Image Guided LEFT Nephrostomy Tube Exchange with possible intervention Post Procedure Discharge Plan Patient to be discharged home. Milagro Mcgarry PA-C Interventional Radiology Pager [phone] Dept [phone] Available on [employer] Digitally Signed by MILAGRO MCGARRY PA-C on 04/14/2024 12:38 PM Digitally Signed by VIRAL MANUEL MD on 04/14/2024 03:28 PM [facility] [id number] Anesthesiology Consult note Patient: LALY NAVAS Age: 33 years Sex: Female : 1990 Associated Diagnoses: None Author: DAVID SMITH MD Late entry: Patient seen and examined by me prior to entering operating room for procedure under anesthesia. Delay in documentation due to clinical duties. Preoperative Information > 8 hours Anesthesia history Patient's history: negative. Family's history: negative. Health Status Allergies: Allergic Reactions (Selected) Severity Not Documented Haldol- Tongue swelling. Oranges- Tongue swelling and difficulty breathing. Penicillin- Hives., Allergies (3) ActiveSeverityReaction penicillinHives OrangesDifficulty breathing, Tongue swelling HaldolTongue swelling Current medications: (Selected) Inpatient Medications Ordered NS 1,000 mL: 20 mL/hr, Intravenous lidocaine 1% preservative-free injectable solution: 2.5 mg, 0.25 mL, Intradermal, prep pharm lidocaine 1% preservative-free injectable solution: 2.5 mg, 0.25 mL, Intradermal, prep pharm Prescriptions Prescribed Ativan 1 mg oral tablet: 1 mg, 1 tab(s), Oral, BID, for 30 day(s), PRN: as needed for anxiety, 60 tab(s), 0 Refill(s) Calcium Plus Vitamin D3 600 mg-12.5 mcg (500 intl units) oral capsule: 2 cap(s), Oral, qDay, with food, 120 EA, 0 Refill(s) LORazepam 1 mg oral tablet: 1 mg, 1 tab(s), Oral, BID, 60 tab(s), 1 Refill(s) Lexapro 20 mg oral tablet: 20 mg, 1 tab(s), Oral, qDay, 30 tab(s), 2 Refill(s) Zofran 4 mg oral tablet: 4 mg, 1 tab(s), Oral, q8h, for 15 day(s), PRN: Nausea/Vomiting, 45 tab(s),2 Refill(s) oxyCODONE 5 mg oral tablet ( IMMEDIATE release ): 10 mg, 2 tab(s), Oral, q8h, PRN: for pain, 150 tab(s), 0 Refill(s) Documented Medications Documented Motrin IB 200 mg oral tablet: 400 mg, 2 tab(s), Oral, q4h, PRN: as needed for pain, 120 tab(s), 0 Refill(s) acetaminophen: 650 mg, PRN: as needed for pain, 0 Refill(s) naloxone 4 mg/0.1 mL nasal spray: 4 mg, 1 spray(s), Intranasal, AsDirected, may repeat every 2 to 3minutes until patient responds, PRN: see pharmacy notes, 2 EA, 0 Refill(s), No qualifying data available Problem list: Medical Anxiety / SNOMED CT 12982600 / Confirmed Asthma / SNOMED CT 766158318 / Confirmed Decreased appetite / SNOMED CT 663388464 / Confirmed Dehydration / SNOMED CT 43437219 / Confirmed Port-A-Cath in place / SNOMED CT 6482040333 / Confirmed Bilateral flank pain / SNOMED CT 286633371 / Confirmed History of chemotherapy / SNOMED CT 0783180538 / Confirmed Hx of cervical cancer / SNOMED CT 7064744719 / Confirmed History of radiation therapy / SNOMED CT 1010017600 / Confirmed Hydronephrosis, left / SNOMED CT 25984644 / Confirmed Acute kidney injury / SNOMED CT 00446220 / Confirmed Left flank pain / SNOMED CT 764369074 / Confirmed Cervical cancer / SNOMED CT 937020344 / Confirmed Moderate protein-calorie malnutrition / SNOMED CT 847609187 / Confirmed Nausea and vomiting / SNOMED CT 71715327 / Confirmed Cancer related pain / SNOMED CT 7297787647 / Confirmed DVT prophylaxis / SNOMED CT 757370947 / Confirmed Palliative care encounter / SNOMED CT 059458899 / Confirmed Premature menopause / SNOMED CT 5834593994 / Confirmed Pyelonephritis / SNOMED CT 90481441 / Confirmed Nephrostomy status / SNOMED CT 182436337 / Confirmed Complicated UTI (urinary tract infection) / SNOMED CT 482875720 / Confirmed Obstructive uropathy / SNOMED CT 92056425 / Confirmed, Active Problems (28) Acute kidney injury Anxiety Asthma Bilateral flank pain Bradycardia Cancer related pain Cervical cancer Complicated UTI (urinary tract infection) Contact lenses COVID-19 Decreased appetite Dehydration DVT prophylaxis Fall Glasses History of chemotherapy History of radiation therapy Hx of cervical cancer Hydronephrosis, left Left flank pain Moderate protein-calorie malnutrition Nausea and vomiting Nephrostomy status Obstructive uropathy Palliative care encounter Port-A-Cath in place Premature menopause Pyelonephritis Histories Past Medical History: Resolved ESBL (extended spectrum beta-lactamase) producing bacteria infection (6032408460): Onset on 02/23/2023 at 32 years. Resolved on 05/07/2023 at 32 years. ESBL (extended spectrum beta-lactamase) producing bacteria infection (4075799660): Onset on 08/09/2022 at 31 years. Resolved on 01/02/2023 at 32 years. Comments: 01/02/2023 SUMEET 10:02 JAMAL Haynes Removed ESBL disease alert from 08/2022 per infection control protocol on 01/02/23. Mass of cervix (569632258): Resolved. Chronic kidney disease, stage 3 (moderate) (0355256443): Resolved. Hydronephrosis of left kidney (92537062): Resolved. Cervicitis (051786103): Resolved. Encounter for antineoplastic chemotherapy (966602074): Resolved. Tinnitus (631126731): Resolved. History of COVID-19 (8457163282): Resolved. Procedure history: Nephrostomy tube (995428740) on 10/05/2023 at 32 Years. Comments: 11/19/2023 9:37 Fany Sanchez LPN left side Nephrostomy with tube drainage (17109114) in the month of 07/2023 at 32 Years. Comments: 06/13/2020 10:09 JAMAL Guaman left Nephrostomy with tube drainage (07514874) on 01/10/2021 at 30 Years. Cannulation of Portacath (259649499) in 2020 at 30 Years. Comments: 06/13/2020 10:09 JAMAL Guaman right JJ stent ([id number]) on 11/15/2020 at 29 Years. Radiation (252854641) in the month of 06/2020 at 29 Years. Comments: 06/26/2020 6:12 GINNY Burton RN Mayi Jenkins via tandems and oviod X2 Cervical biopsy (30987090) in 2020 at 29 Years. Comments: 04/12/2020 18:25 Eri Conte RN pt states she had a cervical biopsy done on 04/07/2020 at [facility] for a cervical mass Tumor cells, benign (69980547) in 2001 at 11 Years. 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 done at [facility] in [place] Social History: Social & Psychosocial Habits Alcohol 03/04/2024isk Assessment: Denies Alcohol Use 03/04/2024 Use: Past Type: Beer Frequency: 1-2 times per week Employment/School 03/04/2024 Status: Employed Substance Abuse 03/04/2024 Use: Never 03/04/2024isk Assessment: Denies Substance Abuse Tobacco 03/04/2024 Tobacco Use: Former smoker, quit more Exposure to Tobacco Smoke Lives in non-smoking home Started at age: 19 Years Stopped at age: 32 Years Smokeless tobacco use: Never 03/04/2024 Tobacco Use: Former smoker, quit more Type: Cigarettes Tobacco use per day: 10 Number of years: 10 Started at age: 19 Years Stopped at age: 32 Years Previous treatment: None Ready to change: Yes Home/Environment 03/04/2024isk Assessment: No Risk 03/04/2024 Living situation: Home/Independent Safe place to go: Yes Financial concerns: No Domestic Concerns None Lives In Mobile home Current Home Treatments None Special Services and Community Resources None Marital Status of Patient if Patient Independent Adult: Unmarried Nutrition/Health 03/04/2024 Type of diet: Regular Appetite Fair Eating Difficulties None Caffeine intake amount: 1 can pop per day 4Risk Assessment: No Risk 03/04/2024 Type of diet: Regular Appetite Poor Sexual 03/04/2024 Sexually active: Yes First active at age: 18 Years Current partners: 1 Number of lifetime partners: 7 Self described orientation: Straight or heterosexual Other contraceptive use: condoms History of sexual abuse: No What is your current gender identity? (Check all that apply) Identifies as female Physical Examination General: Alert and oriented, No acute distress. Airway: Mallampati classification: II (soft palate, fauces, uvula visible). Head: Normocephalic. Dentition Evaluation: Chipped teeth. Respiratory: Respirations are non-labored. Cardiovascular: Normal rate. Heart Sounds: Normal. Neurologic: Alert, Oriented. Review / Management Documentation reviewed: Current records, Reviewed prior records. Assessment and Plan [employer] Society of Anesthesiologists (ASA) physical status classification: Class III. h/o asthma/reactive airway disease, cervical cancer, CKD, hydornephrosis Anesthetic Preoperative Plan Anesthetic technique: MAC. Induction: intravenously. Maintenance airway: Mask. Postoperative pain management: Per surgeon. Risks discussed: nausea, vomiting, headache, sore throat, dental injury, hypotension, allergic reaction, serious complications. Informed consent: signed by patient. Digitally Signed by DAVID SMITH MD on 04/14/2024 01:24 PM Digitally Signed by DAVID SMITH MD on 04/14/2024 01:24 PM [facility] [id number] NoteORIGINAL PROCEDURE: Percutaneous nephrostomy tube exchange with fluoroscopy CLINICAL STATEMENT: Left nephrostomy tube exchange, routine LATERALITY: LEFT HUMAN RESOURCES DIRECTOR: Lacey Loera PA-C MATERIALS: 10 Fr X 35 cm nephrostomy drainage catheter Bentson wire Drainage bag CONTRAST: 20 mL Omni 300 ANESTHESIA: MAC FLUORO: 0.7 minutes AIR KERMA DOSE: 8.14 mGy The procedure, risks, and alternatives, were discussed and all questions were answered. Informed consent obtained. Accompanying paperwork was verified for accuracy. Directed history and physical exam performed prior to the procedure. Medication reconciliation performed by nursing personnel. Procedure was performed using a cap, sterile gown, sterile gloves, a large sterile sheet, hand hygiene and 2% chlorhexidine for cutaneous antisepsis. The patient was positioned on the table and prepped and draped in usual sterile fashion. A critical pause was performed with assisting personnel just prior to the procedure with the patient's identity confirmed using 2 identifiers, confirming site and side. Sausage Stuffer image with contrast injection demonstrates stable appearance of the nephrostomy tube. After cutting the hub, the old catheter was exchanged for a new one and the distal loop formed in the renal pelvis. The string was removed in its entirety. Position was confirmed with contrast injection. The catheter was flushed, attached to dependent drainage bag and a sterile dressing applied. COMPLICATIONS: None EBL: None CONDITION: Stable, unchanged IMPRESSION: Successful, uncomplicated nephrostomy tube change. Procedure was performed by Lacey oLera PA-C Interpreted by: Madeline Aparicio MD Preliminary Report By: Lacey Loera PA-C Electronically signed By Madeline Aparicio MD Dictated Date: 03/03/2024 3:46:39 PM Prelim Date: 03/03/2024 3:48:09 PM Sign Date: 03/04/2024 9:14:43 AM Ordering Provider: [facility]03-03-2024 Hospital Discharge instructions Patient Education 03/03/2024 14:38:37 Radiology- Nephrostomy/Nephroureteral Tube Exchange 12/26/2022(CUSTOM) SAVANNAH Nephrostomy/Nephroureteral Tube Exchange Discharge Instructions Interventional Radiology [facility] [address] [place] [address] The procedure that you had done today is called a nephrostomy tube exchange. This is a procedure toreplace a pre-existing tube that drains the urine from the kidney in order to prevent pain, infection and kidney damage. This should occur every 6-12 weeks, depending on your physician's orders and personal condition. Your urine may be blood tinged, in the bag and from regular urination, for up to 48 hours. If you had a nephroureteral tube exchange today, then this procedure is to replace a pre-existing tube that goes from your back into the kidney and down the ureter to the bladder. This tube may be either capped or have a dependent bag attached like a nephrostomy tube. Please follow these instructions: DIET: Resume previous diet as tolerated ACTIVITY: Wear loose, comfortable clothing. Make sure your tube is secure at all times. Avoid tugging at the tube. PAIN CONTROL: Mild back discomfort on the side of the tube placement may occur for the first 24 hours. You may experience the feeling of the need to urinate. Iqye-inj-mbhirob pain medication should be used for pain or discomfort. Please check with the physician who sent you for this procedure for their specific recommendations. If your pain is not relieved or becomes more severe, notify the physician who sent you for this procedure. IF YOU RECEIVED CONSCIOUS SEDATION (IV SEDATION) & YOU ARE DISCHARGED THE SAME DAY You must have someone drive you home when you leave the hospital. For 24 hours after your procedure, do not do anything where you need to make important decisions. This includes operating machinery, signing important documents, etc. MEDICATION: Please resume on . NEPHROSTOMY CARE: Wash your hands well with soap and water before and after caring for your nephrostomy tube. Keep the skin around the nephrostomy tube dry. If the area does get wet, dry the skin completely. Change the dressing every week, or as needed if it is leaking or the dressing becomes saturated. Keep all the ports of the tube and drainage bag as clean as possible to prevent infection. Empty the drainage bags often via the spout at the bottom of the bag. Turn clockwise. Avoid overfilling. Always empty the bag before bed. Some patients will be required to flush their tubes, please check with ordering physician for instructions and supplies. (You do not need to do this unless specifically instructed by your healthcare provider). TUBE PROBLEMS Call Interventional Radiology IMMEDIATELY if the tube falls out. Call Interventional Radiology if you notice decreased or no urine output or if urine leaks from thedressing site from tube. Call your Urologist if any abnormal bleeding, foul odor or drainage, redness, swelling, worsening pain, or fever above 102F. If the catheter falls out, it can be replaced by the doctor ideally within 24 hours. Do not attemptto put the tube back in yourself. BATHING Avoid swimming. You may shower with the nephrostomy bag attached to the skin, sit in a shallow bath, or sponge bathe while the catheter is in place. Be sure to keep the water level below the dressingwhen tub bathing. Please change your dressing if it gets wet. SPECIFIC INSTRUCTIONS TO CHANGE NEPHROSTOMY TUBE DRESSING Supplies needed: Soap and water Clean, dry towel Nephrostomy bag Clean adhesive dressing Gauze Because the nephrostomy tube is located on your back, you will need someone to assist you in changing the dressing. Wash hands well Remove the old dressing, peeling the edges slowly from skin. As the dressing is pulled away from the skin, support the nephrostomy tube with your free hand to prevent placing tension on the tube and accidentally pulling it out. Wash the area around the nephrostomy tube with soap and water. Gently pat the area dry. Need 2 layers of gauze. One layer in between the skin and the tube. Second layer of gauze goes overthe tube. Then place the clean adhesive dressing over the gauze. Supplies may be obtained at: [facility] [address] [facility] [address] [facility] Any questions or concerns, please contact your physician or Interventional Radiology at [phone] from 8-4:30pm Friday-Friday. If you do not have a follow up appointment scheduled at the time of discharge, please call Interventional Radiology at the number listed above. 03/03/2024 14:38:26 1- [facility] General Discharge Guidelines (07/18/2023) (CUSTOM) VAN[facility]SA SAME DAY SURGERY DISCHARGE INSTRUCTIONS PLEASE FOLLOW THE INSTRUCTIONS BELOW MARKED WITH AN X: __X_Regular Diet: Start with clear liquids, then soup and crackers. Gradually add other foods unless otherwise instructed by your surgeon __X_Drink extra fluids ACTIVTY: __X_Since you have had anesthetic, it would be advisable not to drive, drink alcohol, or make majordecisions over the next 24 hours. You may require more rest tonight and tomorrow __X_Do not drive vehicle while taking narcotics and as directed by your Surgeon ____Restrict activity as follows: ____Do not have sexual intercourse. Nothing in the vagina-No tampons or Douching ____No heavy lifting, pushing, or straining ____Elevate operative limb ____Ice as directed __X_Follow all written and verbal instructions given to you by your Doctor ____Other: BATHING/SHOWERING ____Sponge bathe until office visit. ____Sitting in tub of warm water may relieve discomfort ____May tub bathe ____May shower in 24-48 hours with clean linen unless otherwise instructed by your Doctor DRESSING: ____Keep operative area clean and dry ____Check the operative area for signs of bleeding. Apply pressure to the bleeding site if necessary. ____Change drip pad as needed ____Wear scrotal support for comfort WATCH FOR SIGNS OF INFECTION: (Usually appears 36-48 hours after surgery) Increased temperature (101 degrees Fahrenheit or higher) Redness or swelling Increased pain Foul odor or drainage If you have any questions, please call your doctor at the number listed on your follow-up instructions. Follow Up Care 02/19/2024 13:58:52 With:MADELINE APARICIO MD, [facility] Address: [address] [place] [address] [facility] [place] [address]- [phone] When: Unknown Comments:[facility] [facility] 05-01-2024 History and physical note IR PREPROCEDURE H&P UPDATE IF A HISTORY AND PHYSICAL EXAMINATION HAS BEEN COMPLETED PRIOR TO ADMISSION TO THE HOSPITAL, AN UPDATED EXAMINATION MUST BE COMPLETED AND DOCUMENTED WITHIN 24 HOURS AFTER ADMISSION OR REGISTRATION BUT BEFORE A SURGICAL PROCEDURE. I have examined the patient, reviewed the H&P, and there are no changes unless noted below: _ The most recent H&P/Office Note was performed on 02/04/2024 and can be found in the [facility] Records ([employer]). Lacey Loera PA-C Interventional Radiology IR Dept [id number] Available on [employer] Digitally Signed by LACEY LOERA PA-C on 03/03/2024 03:54 PM [id number] Note* Cristina Simons RN: SIGN, AUTHOR, PERFORM Event Display: IR Procedure Record Authored Date: IR Procedure Record Summary Primary Physician: LACEY LOERA PA-C Finalized Date/Time: 03/03/24 13:42:51 Pt. Name: LALY NAVAS/Sex: 1990 Female Med Rec #: [id number] Physician: Financial #: [id number] Pt. Type: S Room/Bed: [facility]/A Admit/Disch: 03/03/24 10:48:31 - Institution: Allergies identified in patient's electronic medical record at time of printing on 03/03/24 Entry 1 Entry 2 Entry 3 Substance Haldol Oranges penicillin Reaction Type Allergy Allergy Allergy Last Modified By: Fany Ruelas LPN, Kimberly V. RN Holt, Kimberly V. RN 11/19/23 09:39:23 07/21/23 10:11:02 07/21/23 10:10:45 Case Attendance- IR Entry 1 Entry 2 Entry 3 Case Attendee LACEY LOERA RYAN L Aller, Tracie N RN PA-C LITIGATION ATTORNEY ASSOCIATE-SCALEMAKER Role Performed Primary Surgeon SCALEMAKER Western Philosophy Professor 1 Details Time In 03/03/24 13:33:00 03/03/24 13:10:00 03/03/24 13:29:00 Time Out 03/03/24 13:39:00 03/03/24 13:46:00 03/03/24 13:46:00 Procedure/Preference IR Nephrostomy Exchange IR Nephrostomy Exchange IR Nephrostomy Exchange Card (SN) (SN) (SN) Last Modified By: Cristina Simons RN, Tracie N RN Cristina Simons RN 03/03/24 13:40:25 03/03/24 13:40:25 03/03/24 13:40:25 Entry 4 Entry 5 Case Attendee Padmini Fairchild, Systems IntegratorSkillBridge Role Performed Scrub Technologist Circulating Technologist Details Time In 03/03/24 13:10:00 03/03/24 13:10:00 Time Out 03/03/24 13:46:00 03/03/24 13:46:00 Procedure/Preference IR Nephrostomy Exchange IR Nephrostomy Exchange Card (SN) (SN) Last Modified By: Cristina Simons RN, Tracie N RN 03/03/24 13:40:25 03/03/24 13:40:25 Radiology Procedures- IR Entry 1 Procedure/Preference IR Nephrostomy Exchange Actual Procedure IR NEPH TUBE CHANGE Card (SN) Primary Procedure Yes Primary Surgeon TADEO LEIJA PA-C Anesthesia/Sedation MAC Type Additional Procedure Times Start 03/03/24 13:33:00 Stop 03/03/24 13:39:00 Specialty Service SN Radiology Procedure EBL 2 mL Last Modified By: Cristina Simons RN 03/03/24 13:40:20 Radiology Procedure Details - IR Entry 1 Radiology Sedation Case Times Sedation Total Time 0 minutes Radiology - Fluid/Drainage Radiology Contrast Contrast Used? Yes Dose 6 mL Medication CONTRAST ISOVUE 300/30ML 10/CA 062046 Radiology Flouroscopy Fluoroscopy Used? Yes Fluoro Dose (mGy) 8.14 Fluoro Time 0.7 minutes Radiology Local Local Used? Yes Local Type: lidocaine Local Dose 1 mL Radiology Procedure Site Site/Location Left flank Site Condition No complications Suture 2.0 Ethibond Suture Dressing Type Gauze sponge 4 X 4, Transparent Technologist Notes Left neph tubs exchange 10F x 35cm Last Modified By: Cristina Simons RN 03/03/24 13:42:45 General Case Data - IR Entry 1 Case Information Room AH IR 17 Case Level IR Level 3 Wound Class Clean Specialty SN Radiology Procedure ASA Class 2 Diagnosis Preop Diagnosis hydronephrosis Postop Same As Preop Yes Postop Diagnosis hydronephrosis Last Modified By: Cristina Simons RN 03/03/24 13:35:30 Procedure Case Times- IR Entry 1 Patient In Procedure Patient In OR 03/03/24 13:10:00 Patient Out of OR 03/03/24 13:46:00 Procedure Start/Stop Procedure Start Time 03/03/24 13:33:00 Procedure Stop Time 03/03/24 13:39:00 Last Modified By: Cristina Simons RN 03/03/24 13:40:24 Immediate Post Procedure Note - IR Entry 1 Immediate Post Yes Findings Left neph tube change Procedure Note displayed for Physician to review Closure Technique Closure Technique Other than Primary Last Modified By: Cristina Simons RN 03/03/24 13:35:09 Immediate Post Procedure Note - IR Signed By: LACEY LOERA PA-C 03/03/24 13:39 Allergy Information- IR Entry 1 Allergies Reviewed? Yes Allergies Reviewed Patient With Last Modified By: Cristina Simons RN 03/03/24 13:31:38 Radiology Protocols/Time Out- IR Entry 1 Preprocedure Clinician Verifies Correct patient ID When Clinically Confirmation of correct using name & date Indicated side(s) and site(s), or MRN, Accurate Correct diagnostic and procedure, complete radiology tests Informed Consent, H & P available, Required update immediately blood products, prior to procedure, if implants, devices applicable and/or special equipment available OR/Procedure Room/Bedside Time 03/03/24 13:33:00 Clinician Verifies Correct patient identity including EMR & records using name and date or medical record number, Accurate procedure consent form, Correct patient position, Necessary equipment is available, Anticipated non-routine events with surgical team (case duration, estimated blood loss, patient specific concerns)., Parada patient factors for recovery and management identified with surgical team. When Applicable Confirmation correct Team Members LACEY LOERA side and site marked, Present for Time Out RADHA CHU RYAN L Relevant images and Kristyn LOBATO, results are properly Cristina Hitchcock RN, Gurinder, labeled and Padmini Vargas Tech, appropriately Sam Sim Grace displayed, Alcohol based prep dry, Double verification of sterility indicators complete Instrument Sterility Team Members Padmini Fairchild Verifying Sterility Tech Procedure IR Nephrostomy Exchange (SN) Last Modified By: Cristina Simons RN 03/03/24 13:34:33 Skin Prep- IR Entry 1 Procedure IR Nephrostomy Exchange (SN) Skin Prep Prep Area Back Side Left By Padmini Fairchild Prep Agents Chloraprep Tech Hair Removal Method N/A Last Modified By: Cristina Simons RN 03/03/24 13:34:53 Patient Positioning- IR Entry 1 Procedure IR Nephrostomy Exchange Body Position OP Prone (SN) Feet Uncrossed? Yes Pressure Points Yes Checked Last Modified By: Cristina Simons RN 03/03/24 13:35:00 Radiology Procedure Plan - IR Entry 1 Radiology - Nursing Care Plan Outcome Statement The patient Outcome Statement The patient receives demonstrates knowledge Cont. appropriate of the expected medication(s), safely responses to the administered during the operative/invasive perioperative/invasive procedure., The period., The patient is patient's value system, free from signs and lifestyle, ethnicity, symptoms of injury and culture are caused by extraneous considered, respected, objects (equipment, and incorporated in the instrumentation, perioperative plan of sponges, or sharps). care., The patient is free from signs and symptoms of infection. Radiology - Action Plan Outcomes Met? Yes Mottler Operator Cristina Simons RN Completing Procedure Plan Last Modified By: Cristina Simons RN 03/03/24 13:35:19 Case Comments <None> Finalized By: Cristina Simons RN Document Signatures Signed By: Cristina Simons RN 03/03/24 13:42 [facility] 05-01-2024 Summary of episode note Discharge Instructions Thank you for allowing [facility] to assist you with your healthcare needs. The following is importantdischarge information regarding your hospital visit. What to do next Scheduled Follow-Up Appointments Appointment Type When With Where Contact InformationTelephone 03/04/2024 09:30 AM EDT OLE PACE MD [facility] OV Follow Up 04/07/2024 03:20 PM EDT [facility] [address] [facility] [place] [address] Follow Up Appointments Follow Up with MADELINE APARICIO MD, [facility] When Why: Follow-up as scheduled Where: [address] [place] [address] [facility] [place] [address] [phone] The Following Activity and Diet Have Been Ordered for You No qualifying data available. No qualifying data available. Allergies Haldol (Tongue swelling) Oranges (Tongue swelling, Difficulty breathing) penicillin (Hives) Medications Please ask your primary doctor or pharmacist before taking any other medication not listed, including over the counter drugs, herbal medications, vitamins and or supplements as they may interact [facility] medications. What How Much When Why Instructions Last Dose Unchanged acetaminophen 650 Milligram Unchanged calcium-vitamin D (Calcium Plus Vitamin D3 600 mg-12.5 mcg (500 intl units) oral capsule) 2 cap by mouth Once a day with food Unchanged escitalopram (Lexapro 10 mg oral tablet) 1 tab(s) by mouth Once a day Unchanged ibuprofen (Motrin IB 200 mg oral tablet) 2 tab(s) by mouth Every 4 hours as needed for as needed for pain Unchanged LORazepam (LORazepam 1 mg oral tablet) 1 tab(s) by mouth Two (2) times a day Cancer related pain History of cervical cancer Unchanged naloxone (naloxone 4 mg/ 0.1 mL nasal spray) 1 spray(s) Intranasal As Directed as needed for see pharmacy notes may repeat every 2 to 3 minutes until patient responds Unchanged ondansetron (Zofran 4 mg oral tablet) 1 tab(s) by mouth Every 8 hours as needed for Nausea/Vomiting Unchanged oxyCODONE (oxyCODONE 10 mg oral tablet) 1 tab(s) by mouth Every 8 hours as needed for for pain Cancer related pain History of cervical cancer Unchanged oxyCODONE (oxyCODONE 5 mg oral tablet ( IMMEDIATE release )) 2 tab(s) by mouth Every 8 hours as needed for for pain Cancer related pain History of cervical cancer Please take this list to your next doctor s visit. Bring all medications you take, including over the counter medications, herbals and other supplements with you to your doctor s visit. Patients and families are reminded to discard old lists and to update any records with all medication providers or retail pharmacies. Education Materials SAVANNAH Nephrostomy/Nephroureteral Tube Exchange Discharge Instructions Interventional Radiology [facility] [address] [place] [address] The procedure that you had done today is called a nephrostomy tube exchange. This is a procedure toreplace a pre-existing tube that drains the urine from the kidney in order to prevent pain, infection and kidney damage. This should occur every 6-12 weeks, depending on your physician's orders and personal condition. Your urine may be blood tinged, in the bag and from regular urination, for up to 48 hours. If you had a nephroureteral tube exchange today, then this procedure is to replace a pre-existing tube that goes from your back into the kidney and down the ureter to the bladder. This tube may be either capped or have a dependent bag attached like a nephrostomy tube. Please follow these instructions: DIET: Resume previous diet as tolerated ACTIVITY: Wear loose, comfortable clothing. Make sure your tube is secure at all times. Avoid tugging at the tube. PAIN CONTROL: Mild back discomfort on the side of the tube placement may occur for the first 24 hours. You may experience the feeling of the need to urinate. [id number] pain medication should be used for pain or discomfort. Please check with the physician who sent you for this procedure for their specific recommendations. If your pain is not relieved or becomes more severe, notify the physician who sent you for this procedure. IF YOU RECEIVED CONSCIOUS SEDATION (IV SEDATION) & YOU ARE DISCHARGED THE SAME DAY You must have someone drive you home when you leave the hospital. For 24 hours after your procedure, do not do anything where you need to make important decisions. This includes operating machinery, signing important documents, etc. MEDICATION: Please resume on . NEPHROSTOMY CARE: Wash your hands well with soap and water before and after caring for your nephrostomy tube. Keep the skin around the nephrostomy tube dry. If the area does get wet, dry the skin completely. Change the dressing every week, or as needed if it is leaking or the dressing becomes saturated. Keep all the ports of the tube and drainage bag as clean as possible to prevent infection. Empty the drainage bags often via the spout at the bottom of the bag. Turn clockwise. Avoid overfilling. Always empty the bag before bed. Some patients will be required to flush their tubes, please check with ordering physician for instructions and supplies. (You do not need to do this unless specifically instructed by your healthcare provider). TUBE PROBLEMS Call Interventional Radiology IMMEDIATELY if the tube falls out. Call Interventional Radiology if you notice decreased or no urine output or if urine leaks from thedressing site from tube. Call your Urologist if any abnormal bleeding, foul odor or drainage, redness, swelling, worsening pain, or fever above 102F. If the catheter falls out, it can be replaced by the doctor ideally within 24 hours. Do not attemptto put the tube back in yourself. BATHING Avoid swimming. You may shower with the nephrostomy bag attached to the skin, sit in a shallow bath, or sponge bathe while the catheter is in place. Be sure to keep the water level below the dressingwhen tub bathing. Please change your dressing if it gets wet. SPECIFIC INSTRUCTIONS TO CHANGE NEPHROSTOMY TUBE DRESSING Supplies needed: Soap and water Clean, dry towel Nephrostomy bag Clean adhesive dressing Gauze Because the nephrostomy tube is located on your back, you will need someone to assist you in changing the dressing. Wash hands well Remove the old dressing, peeling the edges slowly from skin. As the dressing is pulled away from the skin, support the nephrostomy tube with your free hand to prevent placing tension on the tube and accidentally pulling it out. Wash the area around the nephrostomy tube with soap and water. Gently pat the area dry. Need 2 layers of gauze. One layer in between the skin and the tube. Second layer of gauze goes overthe tube. Then place the clean adhesive dressing over the gauze. Supplies may be obtained at: [facility] [address] [facility] [address] [facility] Any questions or concerns, please contact your physician or Interventional Radiology at [phone] from 8-4:30pm Friday-Friday. If you do not have a follow up appointment scheduled at the time of discharge, please call Interventional Radiology at the number listed above. [facility] SAME DAY SURGERY DISCHARGE INSTRUCTIONS PLEASE FOLLOW THE INSTRUCTIONS BELOW MARKED WITH AN X: __X_Regular Diet: Start with clear liquids, then soup and crackers. Gradually add other foods unless otherwise instructed by your surgeon __X_Drink extra fluids ACTIVTY: __X_Since you have had anesthetic, it would be advisable not to drive, drink alcohol, or make majordecisions over the next 24 hours. You may require more rest tonight and tomorrow __X_Do not drive vehicle while taking narcotics and as directed by your Surgeon ____Restrict activity as follows: ____Do not have sexual intercourse. Nothing in the vagina-No tampons or Douching ____No heavy lifting, pushing, or straining ____Elevate operative limb ____Ice as directed __X_Follow all written and verbal instructions given to you by your Doctor ____Other: BATHING/SHOWERING ____Sponge bathe until office visit. ____Sitting in tub of warm water may relieve discomfort ____May tub bathe ____May shower in 24-48 hours with clean linen unless otherwise instructed by your Doctor DRESSING: ____Keep operative area clean and dry ____Check the operative area for signs of bleeding. Apply pressure to the bleeding site if necessary. ____Change drip pad as needed ____Wear scrotal support for comfort WATCH FOR SIGNS OF INFECTION: (Usually appears 36-48 hours after surgery) Increased temperature (101 degrees Fahrenheit or higher) Redness or swelling Increased pain Foul odor or drainage If you have any questions, please call your doctor at the number listed on your follow-up instructions. Additional Information VACCINATE! IT SAVES LIVES! Members of the community who have not yet received the COVID-19 vaccine and would like to receive it can visit one of [facility] vaccine clinics. There are many vaccine clinic locations within the [facility]. For locations and available times, please visit https://gettheshot.coronavirus.[place].gov/. It is important to note that some COVID mobile vaccine clinics are held outdoors and may be canceled in rainy or stormy conditions. To learn more about pediatric vaccinations (ages 5-11), we invite you to visit the [employer] [facility] webpage. https://www.PlayMobs.org/pages/4065-Sxhcg-Mtsehgcmipo-Glwgojryoe-Xsjaj-Lil stions.htmlTo learn more about the COVID-19 vaccine, we invite you to visit the CDC website for a list of frequently asked questions.https://www.cdc.gov/coronavirus/2019-ncov/vaccines/faq.html [employer] Patient Portal Access Instructions: Stay connected with your healthcare team and access your personal medical information anytime with the [employer] Patient Portal. Please follow the directions below to create your [employer] account: 1.Access the email account you provided upon registration to the hospital/physician office.2.Look for an invitation email from [facility].3.Open the email and access the invitation link: AcceptInvitation to [employer].4.Fill in the required quintero to create your account. To access your account, visit [email or web address]. Click the blue button labeled Access Patient Portal and then log in with the username and password that you created in the steps above. You will be able to view your test results, lab results, a summary of your visits, upcoming appointments and more. There is also a convenient messaging option where you can send secure messages to your p rovider. In addition, you will have the ability to download any documents or summaries to your computer and/or send the information securely to a physician. Remember that your healthcare information is confidential, so carefully consider who you will allowto register on the [employer] Patient Portal for access to your information. You can also access the [facility] Patient Portal on the [facility]a. Simply click on Patient Portal and then log into your account. If you would like to receive a full copy of your medical records, please contact the [facility] Medical Records Department by calling [phone], Friday through Friday between 8 a.m. and 4:30 p.m. HOW TO SAFELY DISPOSE OF PRESCRIPTION MEDICATIONS Please use one of the following methods to safely dispose of your unused medications. 1.Use a drug disposal kit: the drug disposal pouch allows you to safely discard your old and unuseddrugs. Ask your nurse to give you one when you are discharged.2.Visit a local take-back location: Many local pharmacies and police departments have programs that collect old and unwanted prescriptiondrugs. Call your local pharmacy or go to http://Maptia/5K2Kf2b to find one close to you.3.Make use of household items: Use cat litter or old coffee grounds to dispose medications if other options arenot available. Mix your drugs with these household products, seal them in an airtight container andthrow it into the garbage. Call [facility]: [phone] to be sure your drugs can be disposed of in this way. Some medicines may require a different approach.4.Never flush your medications down the toilet. IF YOU HAVE BEEN PRESCRIBED AN OPIOID FOR PAIN If you have been prescribed an opioid (such as hydrocodone, oxycodone or morphine), it is critical to understand the possible side effects and risks of opioid pain medications. Even when taken as directed, opioids can have several side effects including: Tolerance, meaning you might need to take more of a medication for the same pain relief. Nausea, vomiting and/or constipation. Sleepiness, dizziness, dry mouth, confusion, depression or itching. Physical dependence, meaning you have withdrawal symptoms when a medication is stopped, can develop within a few days. KNOW YOUR RESPONSIBILITIES It is important to know exactly how much and how often to take the opioid pain medications you are prescribed. Never take opioids in higher amounts or more often than prescribed. Do not combine opioids with alcohol or other drugs that cause drowsiness, such as benzodiazepines, also known as benzos, including diazepam and alprazolam, muscle relaxants or sleep aids. Never sell or share prescription opioids. This is illegal. Store opioids in a secure place and out of reach of others (including children, family, friends and visitors). The last page of this document has been signed and retained as a CHART COPY. Signatures Patient Education Materials Radiology- Nephrostomy/Nephroureteral Tube Exchange 12/26/2022(CUSTOM) 1- SDS General Discharge Guidelines (07/18/2023) (CUSTOM) Medication Leaflets My discharge plan and instructions have been reviewed and explained to me and I,LALY NAVAS understand my current condition and have read and understand these discharge instructions. I have received a written copy of the plan/instructions. If I have questions, I am aware that I should contact my doctor. 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 I have examined the patient, reviewed the H&P, and there are no changes unless noted below: _ The most recent H&P/Office Note was performed on 02/04/2024 and can be found in the [facility] Medical Records ([facility]). Lacey Loera PA-C Interventional Radiology IR Dept [id number] Available on [employer] Future Appointments Appointment Date:03/04/2024 09:30:00 AM Scheduled Provider:OLE PACE MD Location:[facility] Appointment Type:Telephone Appointment Date:04/07/2024 03:20:00 PM Scheduled Provider: Location:[facility] Appointment Type:SO OV Follow Up Future Scheduled Tests Radiology* IR Nephrostomy Tube Change Lt Guide 09/04/23 [facility] 05-01-2024 Note IR Procedure Record Summary Primary Physician: LACEY LOERA PA-C Finalized Date/Time: 03/03/24 13:42:51 Pt. Name: ILEANA NAVASAusten Chapman./Sex: 1990 Female Med Rec #: [id number] Physician: Financial #: [id number] Pt. Type: S Room/Bed: [facility]/A Admit/Disch: 03/03/24 10:48:31 - Institution: Allergies identified in patient's electronic medical record at time of printing on 03/03/24 Entry 1 Entry 2 Entry 3 Substance Haldol Oranges penicillin Reaction Type Allergy Allergy Allergy Last Modified By: Fany Ruelas LPN, Kimberly V. RN Holt, Kimberly V. RN 11/19/23 09:39:23 07/21/23 10:11:02 07/21/23 10:10:45 Case Attendance- IR Entry 1 Entry 2 Entry 3 Case Attendee LACEY LOERA RYAN L Aller, Tracie N RN PA-C LITIGATION ATTORNEY ASSOCIATE-SCALEMAKER Role Performed Primary Surgeon SCALEMAKER Western Philosophy Professor 1 Details Time In 03/03/24 13:33:00 03/03/24 13:10:00 03/03/24 13:29:00 Time Out 03/03/24 13:39:00 03/03/24 13:46:00 03/03/24 13:46:00 Procedure/Preference IR Nephrostomy Exchange IR Nephrostomy Exchange IR Nephrostomy Exchange Card (SN) (SN) (SN) Last Modified By: Cristina Simons RN, Tracie N RN Aller, Tracie N RN 03/03/24 13:40:25 03/03/24 13:40:25 03/03/24 13:40:25 Entry 4 Entry 5 Case Attendee Padmini Fairchild Rad Tech Grace Tech Role Performed Scrub Technologist Circulating Technologist Details Time In 03/03/24 13:10:00 03/03/24 13:10:00 Time Out 03/03/24 13:46:00 03/03/24 13:46:00 Procedure/Preference IR Nephrostomy Exchange IR Nephrostomy Exchange Card (SN) (SN) Last Modified By: Cristina Simons RN, Tracie N RN 03/03/24 13:40:25 03/03/24 13:40:25 Radiology Procedures- IR Entry 1 Procedure/Preference IR Nephrostomy Exchange Actual Procedure IR NEPH TUBE CHANGE Card (SN) Primary Procedure Yes Primary Surgeon TADEO LEIJA PA-C Anesthesia/Sedation MAC Type Additional Procedure Times Start 03/03/24 13:33:00 Stop 03/03/24 13:39:00 Specialty Service SN Radiology Procedure EBL 2 mL Last Modified By: Cristina Simons RN 03/03/24 13:40:20 Radiology Procedure Details - IR Entry 1 Radiology Sedation Case Times Sedation Total Time 0 minutes Radiology - Fluid/Drainage Radiology Contrast Contrast Used? Yes Dose 6 mL Medication CONTRAST ISOVUE 300/30ML 10/CA [id number] Radiology Flouroscopy Fluoroscopy Used? Yes Fluoro Dose (mGy) 8.14 Fluoro Time 0.7 minutes Radiology Local Local Used? Yes Local Type: lidocaine Local Dose 1 mL Radiology Procedure Site Site/Location Left flank Site Condition No complications Suture 2.0 Ethibond Suture Dressing Type Gauze sponge 4 X 4, Transparent Technologist Notes Left neph tubs exchange 10F x 35cm Last Modified By: Cristina Simons RN 03/03/24 13:42:45 General Case Data - IR Entry 1 Case Information Room IR 17 Case Level IR Level 3 Wound Class Clean Specialty SN Radiology Procedure ASA Class 2 Diagnosis Preop Diagnosis hydronephrosis Postop Same As Preop Yes Postop Diagnosis hydronephrosis Last Modified By: Cristina Simons RN 03/03/24 13:35:30 Procedure Case Times- IR Entry 1 Patient In Procedure Patient In OR 03/03/24 13:10:00 Patient Out of OR 03/03/24 13:46:00 Procedure Start/Stop Procedure Start Time 03/03/24 13:33:00 Procedure Stop Time 03/03/24 13:39:00 Last Modified By: Cristina Simons RN 03/03/24 13:40:24 Immediate Post Procedure Note - IR Entry 1 Immediate Post Yes Findings Left neph tube change Procedure Note displayed for Physician to review Closure Technique Closure Technique Other than Primary Last Modified By: Cristina Simons RN 03/03/24 13:35:09 Immediate Post Procedure Note - IR Signed By: LACEY LOERA PA-C 03/03/24 13:39 Allergy Information- IR Entry 1 Allergies Reviewed? Yes Allergies Reviewed Patient With Last Modified By: Cristina Simons RN 03/03/24 13:31:38 Radiology Protocols/Time Out- IR Entry 1 Preprocedure Clinician Verifies Correct patient ID When Clinically Confirmation of correct using name & date Indicated side(s) and site(s), or MRN, Accurate Correct diagnostic and procedure, complete radiology tests Informed Consent, H & P available, Required update immediately blood products, prior to procedure, if implants, devices applicable and/or special equipment available OR/Procedure Room/Bedside Time 03/03/24 13:33:00 Clinician Verifies Correct patient identity including EMR & records using name and date or medical record number, Accurate procedure consent form, Correct patient position, Necessary equipment is available, Anticipated non-routine events with surgical team (case duration, estimated blood loss, patient specific concerns)., Parada patient factors for recovery and management identified with surgical team. When Applicable Confirmation correct Team Members LACEY LOERA side and site marked, Present for Time Out KIMBERLEY, CESAR GARCIA Relevant images and LITIGATION ATTORNEY ASSOCIATE-Kristyn ESPINOZA, results are properly Cristina Hitchcock RN, Gurinder, johnny and Padmini Oglesby, appropriately Sam Sim displayed, Alcohol based prep dry, Double verification of sterility indicators complete Instrument Sterility Team Members Padmini Fairchild Verifying Sterility Tech Procedure IR Nephrostomy Exchange (SN) Last Modified By: Cristina Simons RN 03/03/24 13:34:33 Skin Prep- IR Entry 1 Procedure IR Nephrostomy Exchange (SN) Skin Prep Prep Area Back Side Left By Padmini Fairchild Prep Agents Chloraprep Tech Hair Removal Method N/A Last Modified By: Cristina Simons RN 03/03/24 13:34:53 Patient Positioning- IR Entry 1 Procedure IR Nephrostomy Exchange Body Position OP Prone (SN) Feet Uncrossed? Yes Pressure Points Yes Checked Last Modified By: Cristina Simons RN 03/03/24 13:35:00 Radiology Procedure Plan - IR Entry 1 Radiology - Nursing Care Plan Outcome Statement The patient Outcome Statement The patient receives demonstrates knowledge Cont. appropriate of the expected medication(s), safely responses to the administered during the operative/invasive perioperative/invasive procedure., The period., The patient is patient's value system, free from signs and lifestyle, ethnicity, symptoms of injury and culture are caused by extraneous considered, respected, objects (equipment, and incorporated in the instrumentation, perioperative plan of sponges, or sharps). care., The patient is free from signs and symptoms of infection. Radiology - Action Plan Outcomes Met? Yes Mottler Operator Cristina Simons RN Completing Procedure Plan Last Modified By: Cristina Simons RN 03/03/24 13:35:19 Case Comments Finalized By: Cristina Simons RN Document Signatures Signed By: Cristina Simons RN 03/03/24 13:42 [id number] Anesthesiology Consult note Patient: LALY NAVAS Age: 33 years Sex: Female : 1990 Associated Diagnoses: None Author: MIRANDA ARMENDARIZ Preoperative Information Time of last food or liquid consumption: 03/03/2024 00:00:00 Anesthesia history Patient's history: negative. Family's history: negative. Review of Systems Ear/Nose/Mouth/Throat: Negative. Respiratory: exercise induced asthma. Gastrointestinal: Nausea, pt states no nausea after taking zofran this morning. Genitourinary: hydronephrosis. Endocrine: Negative. Musculoskeletal: Negative. Integumentary: Negative. Neurologic: anxiety. Health Status Allergies: Allergic Reactions (Selected) Severity Not Documented Haldol- Tongue swelling. Oranges- Tongue swelling and difficulty breathing. Penicillin- Hives., Allergies (3) ActiveReaction HaldolTongue swelling OrangesTongue swelling penicillinHives Current medications: (Selected) Inpatient Medications Ordered NS 1,000 mL: 20 mL/hr, Intravenous lidocaine 1% preservative-free injectable solution: 2.5 mg, 0.25 mL, Intradermal, prep pharm lidocaine 1% preservative-free injectable solution: 2.5 mg, 0.25 mL, Intradermal, prep pharm Prescriptions Prescribed Calcium Plus Vitamin D3 600 mg-12.5 mcg (500 intl units) oral capsule: 2 cap(s), Oral, qDay, with food, 120 EA, 0 Refill(s) LORazepam 1 mg oral tablet: 1 mg, 1 tab(s), Oral, BID, 60 tab(s), 1 Refill(s) Lexapro 10 mg oral tablet: 10 mg, 1 tab(s), Oral, qDay, 30 tab(s), 1 Refill(s) oxyCODONE 10 mg oral tablet: 10 mg, 1 tab(s), Oral, q8h, PRN: for pain, 90 tab(s), 0 Refill(s) oxyCODONE 5 mg oral tablet ( IMMEDIATE release ): 10 mg, 2 tab(s), Oral, q8h, PRN: for pain, 150 tab(s), 0 Refill(s) Documented Medications Documented Motrin IB 200 mg oral tablet: 400 mg, 2 tab(s), Oral, q4h, PRN: as needed for pain, 120 tab(s), 0 Refill(s) Zofran 4 mg oral tablet: 4 mg, 1 tab(s), Oral, q8h, PRN: Nausea/Vomiting, 15 tab(s), 0 Refill(s) acetaminophen: 650 mg, 0 Refill(s) naloxone 4 mg/0.1 mL nasal spray: 4 mg, 1 spray(s), Intranasal, AsDirected, may repeat every 2 to 3minutes until patient responds, PRN: see pharmacy notes, 2 EA, 0 Refill(s), No qualifying data available Problem list: Medical Anxiety / SNOMED CT 63537045 / Confirmed Asthma / SNOMED CT 047251909 / Confirmed Decreased appetite / SNOMED CT 792035371 / Confirmed Dehydration / SNOMED CT 98952074 / Confirmed Port-A-Cath in place / SNOMED CT 6835746469 / Confirmed Bilateral flank pain / SNOMED CT 037682523 / Confirmed History of chemotherapy / SNOMED CT 1745009657 / Confirmed Hx of cervical cancer / SNOMED CT 3611164849 / Confirmed History of radiation therapy / SNOMED CT 0751945472 / Confirmed Hydronephrosis, left / SNOMED CT 39899101 / Confirmed Acute kidney injury / SNOMED CT 86696950 / Confirmed Left flank pain / SNOMED CT 278496719 / Confirmed Cervical cancer / SNOMED CT 543664502 / Confirmed Moderate protein-calorie malnutrition / SNOMED CT 263233686 / Confirmed Nausea and vomiting / SNOMED CT 39417940 / Confirmed Cancer related pain / SNOMED CT 0231275491 / Confirmed DVT prophylaxis / SNOMED CT 259445827 / Confirmed Palliative care encounter / SNOMED CT 954542055 / Confirmed Premature menopause / SNOMED CT 2712611034 / Confirmed Pyelonephritis / SNOMED CT 98039619 / Confirmed Nephrostomy status / SNOMED CT 154146994 / Confirmed Complicated UTI (urinary tract infection) / SNOMED CT 127064567 / Confirmed Obstructive uropathy / SNOMED CT 11156510 / Confirmed, Active Problems (28) Acute kidney injury Anxiety Asthma Bilateral flank pain Bradycardia Cancer related pain Cervical cancer Complicated UTI (urinary tract infection) Contact lenses COVID-19 Decreased appetite Dehydration DVT prophylaxis Fall Glasses History of chemotherapy History of radiation therapy Hx of cervical cancer Hydronephrosis, left Left flank pain Moderate protein-calorie malnutrition Nausea and vomiting Nephrostomy status Obstructive uropathy Palliative care encounter Port-A-Cath in place Premature menopause Pyelonephritis Histories Past Medical History: Resolved ESBL (extended spectrum beta-lactamase) producing bacteria infection ([id number]): Onset on 02/23/2023 at 32 years. Resolved on 05/07/2023 at 32 years. ESBL (extended spectrum beta-lactamase) producing bacteria infection (5182635872): Onset on 08/09/2022 at 31 years. Resolved on 01/02/2023 at 32 years. Comments: 01/02/2023 EST 10:02 SUMEET - JAMAL Pantoja Removed ESBL disease alert from 08/2022 per infection control protocol on 01/02/23. Mass of cervix (141637502): Resolved. Chronic kidney disease, stage 3 (moderate) (6805438673): Resolved. Hydronephrosis of left kidney (72159205): Resolved. Cervicitis (813298674): Resolved. Encounter for antineoplastic chemotherapy (128128698): Resolved. Tinnitus (050089697): Resolved. History of COVID-19 (3378188613): Resolved. Family History: Cancer Sister COPD - Chronic obstructive pulmonary disease Mother Kidney stone Mother Asthma Mother Breast cancer Mother Hypertension Mother Heart disease Mother Substance abuse Father Alcohol abuse Father Stroke Grandparent Father Heart attack Mother Diabetes Grandparent Procedure history: Nephrostomy tube (258692497) on 10/05/2023 at 32 Years. Comments: 11/19/2023 9:37 Fany Sanchez LPN left side Nephrostomy with tube drainage (55704875) in the month of 07/2023 at 32 Years. Comments: 06/13/2020 10:09 JAMAL Guaman left Nephrostomy with tube drainage ([id number]) on 01/10/2021 at 30 Years. Cannulation of Portacath (896274083) in 2020 at 30 Years. Comments: 06/13/2020 10:09 JAMAL Guaman right JJ stent ([id number]) on 11/15/2020 at 29 Years. Radiation ([id number]) in the month of 06/2020 at 29 Years. Comments: 06/26/2020 6:12 GINNY Burton RN Mayi A via tandems and oviod X2 Cervical biopsy ([id number]) in 2019 at 29 Years. Comments: 04/12/2020 18:25 Eri Conte RN pt states she had a cervical biopsy done on 04/07/2020 at [facility] for a cervical mass Tumor cells, benign ([id number]) in 2001 at 11 Years. 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 done at [facility] in [place] Social History Social & Psychosocial Habits Alcohol 4Risk Assessment: Denies Alcohol Use 03/03/2024 Use: Past Type: Beer Frequency: 1-2 times per week Employment/School 02/04/2024 Status: Employed Substance Abuse 03/03/2024 Use: Never 4Risk Assessment: Denies Substance Abuse Tobacco 03/03/2024 Tobacco Use: Former smoker, quit more Exposure to Tobacco Smoke Lives in non-smoking home Started at age: 19 Years Stopped at age: 32 Years Smokeless tobacco use: Never 03/03/2024 Tobacco Use: Former smoker, quit more Type: Cigarettes Tobacco use per day: 10 Number of years: 10 Started at age: 19 Years Stopped at age: 32 Years Previous treatment: None Ready to change: Yes Home/Environment 4Risk Assessment: No Risk 03/03/2024 Domestic Concerns None Living situation: Home/Independent Safe place to go: Yes Lives In Mobile home Current Home Treatments None Special Services and Community Resources None Financial concerns: No Marital Status of Patient if Patient Independent Adult: Unmarried Nutrition/Health 03/03/2024 Type of diet: Regular Appetite Fair Eating Difficulties None Caffeine intake amount: 1 can pop per day 03/03/2024isk Assessment: No Risk 03/03/2024 Type of diet: Regular Appetite Poor Sexual 03/03/2024 Sexually active: Yes First active at age: 18 Years Current partners: 1 Number of lifetime partners: 7 Self described orientation: Straight or heterosexual Other contraceptive use: condoms History of sexual abuse: No What is your current gender identity? (Check all that apply) Identifies as female . Physical Examination Vital Signs 03/03/2024 11:18 EDT Temperature Temporal Artery 37.2 DegC Apical Heart Rate 64 bpm Respiratory Rate 16 br/min Systolic Blood Pressure Non-Invasive 134 mmHg Diastolic Blood Pressure Non-Invasive 97 mmHg HI Vital Signs(last 24 hrs) Last Charted HFU106 mmHg (MARCH 03 11:18) DBPH 97mmHg (MARCH 03 11:18) Measurements from flowsheet : Measurements 03/03/2024 11:18 EDT Height 167.6 cm Height in inches 66 inch(es) Admission Weight 59.5 kg Weight Lbs 130.9 lb Weight Method Actual [place] Body Weight 59.26 kg Type of Scale Used Bed scale Admission Body Mass Index 21.18 m2 Pain assessment: Pain Assessment 03/03/2024 11:18 EDT Primary Pain Location Flank Primary Pain Laterality Bilateral Primary Pain Intensity 6 Pain Scale Type 0-10 Pain scale . General: Alert and oriented, No acute distress. Airway: Normal temporomandibular joint mobility. Mallampati classification: I (soft palate, fauces, uvula, pillars visible). Head: Normocephalic, Atraumatic. Dentition Evaluation: Chipped teeth. Respiratory: Respirations are non-labored, Symmetrical chest wall expansion. Cardiovascular: Normal rate. Gastrointestinal: Soft, Non-tender, Non-distended. Musculoskeletal No tenderness. Integumentary: Intact, Warm, Dry, Alianza. Neurologic: Alert, Oriented. Review / Management Results review: No qualifying data available , Lab results 03/03/2024 11:22 EDT SN - Preop - CTm Pt Ready for OR/Proced 03/03/2024 11:21 03/03/2024 11:21 EDT Individuals Taught Patient Learning Readiness Willing to learn Barriers to Learning None evident Teaching Method Explanation, Printed materials Preferred Spoken Language Greek Preferred Written Language Greek General Infection Prevention Strategies Hand hygiene Surgical Site Infection Prevention SSI FAQ provided Infection Prevention Teaching Evaluation Verbalizes/Nonverbally indicates understanding Pre Procedure/Surgery Education Appropriate expectations, Bring glasses, hearing aids, contact lenscase, Date/Time of procedure/surgery, Hospital gown requirement worn to OR, Leave valuables, jewelry, wedding ring at home, Meds to take or hold, NPO, Responsible show horse driver for discharge, Surgical skin prep Procedure/Surgical Teaching Evaluation Verbalizes/Nonverbally indicates understanding Safety Measures Education Fall prevention Safety Teaching Evaluation Verbalizes/Nonverbally indicates understanding 03/03/2024 11:20 EDT Nephrostomy LLQ Urostomy Activity: Assessed Hand Right 03/03/2024 22 gauge Peripheral IV Activity: Insert new site Peripheral IV Dressing Condition: Clean, Dry, Intact Peripheral IV Dressing Activity: Applied Peripheral IV Line Status/Patency: Flushes easily Peripheral IV Site Condition: No complications Peripheral IV Number of Attempts: 1 03/03/2024 11:18 EDT Height 167.6 cm Height in inches 66 inch(es) Admission Weight 59.5 kg Weight Lbs 130.9 lb Weight Method Actual [place] Body Weight 59.26 kg Type of Scale Used Bed scale Admission Body Mass Index 21.18 m2 Temperature Temporal Artery 37.2 DegC Apical Heart Rate 64 bpm Respiratory Rate 16 br/min Systolic Blood Pressure Non-Invasive 134 mmHg Diastolic Blood Pressure Non-Invasive 97 mmHg HI Primary Pain Location Flank Primary Pain Laterality Bilateral Primary Pain Intensity 6 Pain Scale Type 0-10 Pain scale Heart Rhythm Regular Respirations Unlabored Respiratory Pattern Regular Breath Sounds Auscultated Anterior and posterior All Lobes Breath Sounds Clear Cough None Oxygen Saturation 99 % GI Symptoms Diarrhea Abdomen Description Non-distended, Soft Abdomen Palpation Non-Tender, Soft Bowel Sounds All Quadrants Present Skin Temperature Warm Skin Description Alianza, Normal for ethnicity, Dry Skin Integrity Intact Skin Moisture General Dry Neurological Symptoms Patient denies Extremity Movement Equal Characteristics of Speech Clear Level of Consciousness Alert Strength All Extremities Strong Tone All Extremities Normal Sensation All Extremities Intact Affect/Behavior Appropriate, Calm, Cooperative Orientation Oriented x 4 Orientation Assessment Oriented x 4 Standard Safety ID band on, Allergy Band on, Call device within reach, Bed in low position, Wheels locked, Upper/Half-Length side-rails up, Phone within reach, personal items within reach, Visitor atbedside, Non-Slip footwear Demonstrates Correct Call Light Use Yes 03/03/2024 11:17 EDT IV Present Present Violence Risk Confused No Violence Risk Irritable No Violence Risk Boisterous No Violence Risk Verbal Threats No Violence Risk Physical Threats No Violence Risk Attacking Objects No Violence Risk Predictor Score 0 Violence Risk Intervention None Violence Risk Current Interventions None Patient Dressed In Hospital gown Pre-op Preparation Jewelry removed Belongings At Bedside Cell phone, Tobacco Drier Operator, Pants, Rings, Shirt, Shoes, Undergarments Last Fluid Intake 03/02/2024 23:30 Last Food Intake 03/02/2024 19:00 Last Void 03/03/2024 11:18 03/03/2024 11:14 EDT SN - Preop - CTm Pt in SDS Room 03/03/2024 11:13 03/03/2024 11:14 EDT Designated Person #1 We May Share PHI Designated Person #1 We May Share PHI Designated Person #1 Relationship Sibling Designated Person #2 We May Share PHI [id number] Designated Person #2 Relationship Sibling Additional Designated Person Share PHI Denise Castaneda Privacy Restrictions Requested None Status No, per patient Sensory Deficits None Sleep Apnea Snore No Sleep Apnea Tired No Sleep Apnea Obstruction Yes Sleep Apnea Pressure No Sleep Apnea BMI No Sleep Apnea Age No Sleep Apnea Neck No Sleep Apnea Gender No Sleep Apnea Score 1 Diagnosed With Sleep Apnea No Advanced Directives No - refuses information Infectious Disease Symptoms Patient states no symptoms Infectious Disease Recent Exposure No Alcohol and Drug Use No Employee of Institutional Living No Health Care Employee No History of Exposure to TB No History of Positive Chest X-Ray for TB No History of Positive TB Skin Test No Homeless No Known Immunosuppression No Recent Immigrant No Resident of Institutional Living No Bloody Sputum No Fatigue No Fever No Loss of Appetite No Night Sweats No Persistent Cough > 3 Weeks No Weight Loss No Barriers to Learning None evident Teaching Method Demonstration Preferred Spoken Language Greek Preferred Written Language Greek Teaching Evaluation Verbalizes/Nonverbally indicates understanding Safety Brochure Information Reviewed Yes [facility] Video Viewed Previously viewed Information Given by Patient Patient's Current Physicians Patient's Current Physicians Discharge To, Anticipated Home independently Prev Test Positive/Diagnosis w/COVID-19 No Current Quarantine/Isolated any Illness No Any Contact with Sick Animals/Birds No Traveled Anywhere in Last 30 Days No Lost Weight Unintentionally Recently No Eat Poorly Due to Decreased Appetite No Total MST Score 0 No Personal Devices, Patient Valuables Contact lenses Anesthesia/Transfusions Prior anesthesia Admission Note-Nursing Same Day Patient History . Assessment and Plan [employer] Society of Anesthesiologists (ASA) physical status classification: Class II. Anesthetic Preoperative Plan Anesthetic technique: MAC. Induction: intravenously. Risks discussed: nausea, vomiting, headache, sore throat, dental injury, hypotension, allergic reaction, serious complications. Informed consent: signed by patient. Notes: Extensive time was spent discussing with the patient and/or POA the inherent risks of anesthesia including but not limited too sore throat, dental injuries to teeth and gums, corneal abrasions, risk of heart attack, stroke, end organ dysfunction, and . The patient and/or POA is aware ofthese risks, accepts them and wishes to proceed with anesthesia. [place] [facility] [place] Digitally Signed by MIRANDA ARMENDARIZ on 03/03/2024 12:57 PM Digitally Signed by NAYELI BRICE DO on 03/03/2024 01:07 PM [facility] [id number] NoteORIGINAL PROCEDURE: Percutaneous nephrostomy tube exchange with fluoroscopy CLINICAL STATEMENT: Patient with cervical cancer and left hydronephrosis managed with left nephrostomy tube LATERALITY: Left HUMAN RESOURCES DIRECTOR: Lacey Loera PA-C MATERIALS: 10 Fr X 35 cm nephrostomy drainage catheter Bentson wire Drainage bag CONTRAST: 10 mL Omni 300 ANESTHESIA: Mac anesthesia, local FLUORO: 0.8 minutes AIR KERMA DOSE: 9.52 mGy The procedure, risks, and alternatives, were discussed and all questions were answered. Informed consent obtained. Accompanying paperwork was verified for accuracy. Directed history and physical exam performed prior to the procedure. Medication reconciliation performed by nursing personnel. Procedure was performed using a cap, sterile gown, sterile gloves, a large sterile sheet, hand hygiene and 2% chlorhexidine for cutaneous antisepsis. The patient was positioned on the table and prepped and draped in usual sterile fashion. A critical pause was performed with assisting personnel just prior to the procedure with the patient's identity confirmed using 2 identifiers, confirming site and side. Sausage Stuffer image with contrast injection demonstrates stable appearance of the nephrostomy tube. After cutting the hub, the old catheter was exchanged for a new one and the distal loop formed in the renal pelvis. The string was removed in its entirety. Position was confirmed with contrast injection. The catheter was flushed, attached to dependent drainage bag and a sterile dressing applied. COMPLICATIONS: None EBL: None CONDITION: Stable, unchanged IMPRESSION: Successful nephrostomy tube exchange. Procedure was performed by Lacey Loera PA-C Interpreted by: Viral Manuel MD Preliminary Report By: Lacey Loera PA-C Electronically signed By Viral Manuel MD Dictated Date: 01/21/2024 4:34:37 PM Prelim Date: 01/21/2024 4:37:45 PM Sign Date: 01/23/2024 12:41:56 PM Ordering Provider: [facility] [place]01-21-2024 Hospital Discharge instructions Patient Education 01/21/2024 14:24:03 1-[facility] Discharge Instructions Template (08/2018) [facility] SAME DAY SURGERY DISCHARGE INSTRUCTIONS PLEASE FOLLOW THE INSTRUCTIONS BELOW MARKED WITH AN X: _x_ Regular Diet: Start with clear liquids, then soup and crackers and gradually add other foods. _x_ Drink extra fluids. ___ Special Diet Instructions: ___ ACTIVITY: _x_ Avoid stress to suture line. Since you have had an anesthetic, it would be advisable not to drive, drink alcohol, or make major decisions over the next 24 hours. You may require more rest tonight and tomorrow. ___ May resume regular activity as tolerated. ___ Restrict activity as follows: ___ ___ Walk Only ___ ___ Do not go up and down stairs. ___ Do not ride in car until ___ ___ Do not drive car. ___ Do not have sexual intercourse. _x_ No heavy lifting, pushing or straining. _x_ Other: _Follow all of Radiology's instructions__ BATHING/SHOWERING: ___ Sponge bathe until office visit. ___ Sitting in tub of warm water may relieve discomfort. ___ May tub bathe _x_ May shower ___ On day after surgery sit in tub of warm water to soak off dressing. DRESSING: _x_ Keep operative area dry and clean _as instructed per Radiology__ _x_ Check the operative area for signs of bleeding. Apply pressure to the bleeding site if necessary and call your physician. ___ Change dressing as necessary using sterile dressing material or bandaid. ___ Reinforce dressing as necessary. ___ Change and care for wound as follows: ___ ___ Wear bra for ___ days following breast surgery for comfort. ___ Change drip pad as needed. ___ Wear scrotal support for comfort. WATCH FOR SIGNS OF INFECTION: (Usually appears 36-48 hours after surgery) Increased temperature (101 degrees Fahrenheit or higher) Redness or swelling Increased pain Foul odor or drainage. If you have any questions, please call your doctor at the number listed on your follow up instructions. Follow all instructions given to you by your physician. Please complete and return the survey you will be receiving in the mail to help us better serve our patients. Form: 1522 ([id number]) R: 02/0901/21/2024 14:16:54 Radiology- Nephrostomy/Nephroureteral Tube Exchange 12/26/2022(CUSTOM) SAVANNAH Nephrostomy/Nephroureteral Tube Exchange Discharge Instructions Interventional Radiology [facility] [address] [place] [address] The procedure that you had done today is called a nephrostomy tube exchange. This is a procedure toreplace a pre-existing tube that drains the urine from the kidney in order to prevent pain, infection and kidney damage. This should occur every 6-12 weeks, depending on your physician's orders and personal condition. Your urine may be blood tinged, in the bag and from regular urination, for up to 48 hours. If you had a nephroureteral tube exchange today, then this procedure is to replace a pre-existing tube that goes from your back into the kidney and down the ureter to the bladder. This tube may be either capped or have a dependent bag attached like a nephrostomy tube. Please follow these instructions: DIET: Resume previous diet as tolerated ACTIVITY: Wear loose, comfortable clothing. Make sure your tube is secure at all times. Avoid tugging at the tube. PAIN CONTROL: Mild back discomfort on the side of the tube placement may occur for the first 24 hours. You may experience the feeling of the need to urinate. [id number] pain medication should be used for pain or discomfort. Please check with the physician who sent you for this procedure for their specific recommendations. If your pain is not relieved or becomes more severe, notify the physician who sent you for this procedure. IF YOU RECEIVED CONSCIOUS SEDATION (IV SEDATION) & YOU ARE DISCHARGED THE SAME DAY You must have someone drive you home when you leave the hospital. For 24 hours after your procedure, do not do anything where you need to make important decisions. This includes operating machinery, signing important documents, etc. MEDICATION: Please resume on . NEPHROSTOMY CARE: Wash your hands well with soap and water before and after caring for your nephrostomy tube. Keep the skin around the nephrostomy tube dry. If the area does get wet, dry the skin completely. Change the dressing every week, or as needed if it is leaking or the dressing becomes saturated. Keep all the ports of the tube and drainage bag as clean as possible to prevent infection. Empty the drainage bags often via the spout at the bottom of the bag. Turn clockwise. Avoid overfilling. Always empty the bag before bed. Some patients will be required to flush their tubes, please check with ordering physician for instructions and supplies. (You do not need to do this unless specifically instructed by your healthcare provider). TUBE PROBLEMS Call Interventional Radiology IMMEDIATELY if the tube falls out. Call Interventional Radiology if you notice decreased or no urine output or if urine leaks from thedressing site from tube. Call your Urologist if any abnormal bleeding, foul odor or drainage, redness, swelling, worsening pain, or fever above 102F. If the catheter falls out, it can be replaced by the doctor ideally within 24 hours. Do not attemptto put the tube back in yourself. BATHING Avoid swimming. You may shower with the nephrostomy bag attached to the skin, sit in a shallow bath, or sponge bathe while the catheter is in place. Be sure to keep the water level below the dressingwhen tub bathing. Please change your dressing if it gets wet. SPECIFIC INSTRUCTIONS TO CHANGE NEPHROSTOMY TUBE DRESSING Supplies needed: Soap and water Clean, dry towel Nephrostomy bag Clean adhesive dressing Gauze Because the nephrostomy tube is located on your back, you will need someone to assist you in changing the dressing. Wash hands well Remove the old dressing, peeling the edges slowly from skin. As the dressing is pulled away from the skin, support the nephrostomy tube with your free hand to prevent placing tension on the tube and accidentally pulling it out. Wash the area around the nephrostomy tube with soap and water. Gently pat the area dry. Need 2 layers of gauze. One layer in between the skin and the tube. Second layer of gauze goes overthe tube. Then place the clean adhesive dressing over the gauze. Supplies may be obtained at: [facility] [address] [facility] [address] [facility] Any questions or concerns, please contact your physician or Interventional Radiology at [phone] from 8-4:30pm Friday-Friday. If you do not have a follow up appointment scheduled at the time of discharge, please call Interventional Radiology at the number listed above. Follow Up Care 01/13/2024 12:19:12 With:MADELINE APARICIO MD, [facility] Address: [address] [place] [address] [facility] [place] [address]- [phone] When: Unknown Comments:Follow-up with Dr. Aparicio as needed. [facility] 03-20-2024 Note* Alicia Jean RN: SIGN, AUTHOR, SIGN, AUTHOR, PERFORM Event Display: IR Procedure Record Authored Date: IR Procedure Record Summary Primary Physician: Finalized Date/Time: 01/21/24 13:58:22 Pt. Name: LALY NAVAS Austen GardnerB./Sex: 1990 Female Med Rec #: [id number] Physician: Financial #: [id number] Pt. Type: S Room/Bed: [place]/A Admit/Disch: 01/21/24 11:00:42 - Institution: Allergies identified in patient's electronic medical record at time of printing on 01/21/24 Entry 1 Entry 2 Entry 3 Substance Haldol Oranges penicillin Reaction Type Allergy Allergy Allergy Last Modified By: Fany Ruelas LPN, Kimberly V. RN Holt, Kimberly V. RN 11/19/23 09:39:23 07/21/23 10:11:02 07/21/23 10:10:45 Case Attendance- IR Entry 1 Entry 2 Entry 3 Case Attendee LACEY LOERA ANTHONY J Beans, Aaron RN PA-C LITIGATION ATTORNEY ASSOCIATE-SCALEMAKER Role Performed Radiology PA/RA Anesthesiologist Western Philosophy Professor 1 Details Time In 01/21/24 13:08:00 01/21/24 13:05:00 01/21/24 13:08:00 Time Out 01/21/24 13:35:00 01/21/24 13:46:00 01/21/24 13:46:00 Procedure/Preference IR Nephrostomy Exchange IR Nephrostomy Exchange IR Nephrostomy Exchange Card (SN) (SN) (SN) Last Modified By: Dustin Palm RN, Aaron RN Beans, Aaron RN 01/21/24 13:41:33 01/21/24 13:41:33 01/21/24 13:41:33 Entry 4 Entry 5 Entry 6 Case Attendee Alicia Jean RN, Colten G Craemer, Alexis Tech Role Performed Western Philosophy Professor 1 Scrub Technologist Circulating Technologist Details Time In 01/21/24 13:08:00 01/21/24 13:08:00 01/21/24 13:08:00 Time Out 01/21/24 13:46:00 01/21/24 13:46:00 01/21/24 13:46:00 Procedure/Preference IR Nephrostomy Exchange IR Nephrostomy Exchange IR Nephrostomy Exchange Card (SN) (SN) (SN) Last Modified By: Dustin Palm RN Dustin Palm RN Dustin Palm RN 01/21/24 13:41:33 01/21/24 13:41:33 01/21/24 13:41:33 Radiology Procedures- IR Entry 1 Procedure/Preference IR Nephrostomy Exchange Actual Procedure IR NEPH TUBE CHANGE Card (SN) Primary Procedure Yes Primary Surgeon VIRAL MANUEL MD Anesthesia/Sedation MAC Type Additional Procedure Times Start 01/21/24 13:27:00 Stop 01/21/24 13:35:00 Specialty Service SN Radiology Procedure EBL 0 mL Last Modified By: Alicia Jean RN 01/21/24 13:56:11 Radiology Procedure Details - IR Entry 1 Radiology Sedation Case Times Sedation Total Time 0 Radiology - Fluid/Drainage Radiology Contrast Contrast Used? Yes Dose 10 mL Medication OMNIPAQUE 350 50ML 10/PK Y-540 [facility] [id number] Radiology Flouroscopy Fluoroscopy Used? Yes Fluoro Dose (mGy) 9.52 Fluoro Time 0.8 minutes Radiology Local Local Used? Yes Local Type: lido 2 % Local Dose 8cc Radiology Procedure Site Site/Location Left flank Site Condition No complications Suture 2.0 Ethibond Suture Dressing Type Tagaderm, Gauze sponge 4 X 4 Technologist Notes Left neph exchange using 10F x 35cm M-Drain lot # [id number] Last Modified By: Dustin Palm RN 01/21/24 13:41:21 General Case Data - IR Entry 1 Case Information Room IR 17 Case Level IR Level 3 Wound Class None Specialty SN Radiology Procedure ASA Class 3 Diagnosis Preop Diagnosis hydronephrosis Postop Same As Preop Yes Postop Diagnosis hydronephrosis Last Modified By: Dustin Palm RN 01/21/24 13:33:31 Procedure Case Times- IR Entry 1 Patient In Procedure Patient In OR 01/21/24 13:08:00 Patient Out of OR 01/21/24 13:46:00 Procedure Start/Stop Procedure Start Time 01/21/24 13:27:00 Procedure Stop Time 01/21/24 13:35:00 Last Modified By: Dustin Palm RN 01/21/24 13:41:32 Immediate Post Procedure Note - IR Entry 1 Immediate Post Yes Findings Left neph tube change Procedure Note displayed for Physician to review Closure Technique Closure Technique Other than Primary Last Modified By: Dustin Palm RN 01/21/24 13:35:28 Immediate Post Procedure Note - IR Signed By: LACEY LOERA PA-C 01/21/24 13:35 Allergy Information- IR Entry 1 Allergies Reviewed? Yes Allergies Reviewed Patient With Last Modified By: Dustin Palm RN 01/21/24 13:16:30 Radiology Protocols/Time Out- IR Entry 1 Preprocedure Clinician Verifies Correct patient ID When Clinically Confirmation of correct using name & date Indicated side(s) and site(s), or MRN, Accurate Correct diagnostic and procedure, complete radiology tests Informed Consent, H & P available update immediately prior to procedure, if applicable OR/Procedure Room/Bedside Time 01/21/24 13:27:00 Clinician Verifies Correct patient identity including EMR & records using name and date or medical record number, Accurate procedure consent form, Correct patient position, Necessary equipment is available, Anticipated non-routine events with surgical team (case duration, estimated blood loss, patient specific concerns). When Applicable Confirmation correct Team Members LACEY LOERA side and site marked, Present for Time Out KIMBERLEY, MARVIN ALEXANDRE Relevant images and LITIGATION ATTORNEY ASSOCIATE-Néstor ESPINOZA Aaron results are properly RN, Alicia Jean labeled and RNSingh Colten G, appropriately Lorenzo Adame Tech displayed, Alcohol based prep dry, Double verification of sterility indicators complete Instrument Sterility Procedure IR Nephrostomy Exchange (SN) Last Modified By: Dustin Palm RN 01/21/24 13:30:09 Skin Prep- IR Entry 1 Procedure IR Nephrostomy Exchange (SN) Skin Prep Prep Area Flank Side Left By Waldemar Winters Prep Agents Chloraprep Hair Removal Method N/A Last Modified By: Dustin Palm RN 01/21/24 13:22:52 Patient Positioning- IR Entry 1 Procedure IR Nephrostomy Exchange Body Position OP Prone (SN) Feet Uncrossed? Yes Pressure Points Yes Checked Last Modified By: Dustin Palm RN 01/21/24 13:23:02 Radiology Procedure Plan - IR Entry 1 Radiology - Nursing Care Plan Outcome Statement The patient Outcome Statement The patient receives demonstrates knowledge Cont. appropriate of the expected medication(s), safely responses to the administered during the operative/invasive perioperative/invasive procedure., The period., The patient is patient's value system, free from signs and lifestyle, ethnicity, symptoms of injury and culture are caused by extraneous considered, respected, objects (equipment, and incorporated in the instrumentation, perioperative plan of sponges, or sharps). care., The patient is free from signs and symptoms of infection., The patient is free from signs and symptoms of injury related to positioning. Radiology - Action Plan Outcomes Met? Yes Mottler Operator Dustin Palm RN Completing Procedure Plan Last Modified By: Dustin Palm RN 01/21/24 13:32:48 Case Comments <None> Finalized By: Alicia Jean RN Document Signatures Signed By: Alicia Jean RN 01/21/24 13:57 Alicia Jean RN 01/21/24 13:58 [facility] 03-20-2024 Summary of episode note Discharge Instructions Thank you for allowing [facility] to assist you with your healthcare needs. The following is importantdischarge information regarding your hospital visit. Your Care Team PHYSICIAN, NONE What to do next Scheduled Follow-Up Appointments Appointment Type When With Where Contact InformationPALL OV Follow Up 02/03/2024 10:30 AM OLE MATUTE MD [facility] SO OV Follow Up 04/07/2024 03:20 PM EDT 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 [facility] [address] [place] [phone] Follow Up Appointments Follow Up with MADELINE APARICIO MD, [facility] When Why: Follow-up with Dr. Aparicio as needed. Where: [address] [place] [address] [facility] [place] [address]- [phone] The Following Activity and Diet Have Been Ordered for You No qualifying data available. No qualifying data available. The Following Equipment Has Been Ordered for You No qualifying data available. The Following Treatments Have Been Ordered for You Discharge Labs No qualifying data available. Discharge Radiology No qualifying data available. Other Therapies No qualifying data available. Post Acute Orders No qualifying data available. Someone Will Contact You Regarding These Home Health Referrals No home referrals have been ordered for you. No one will call you. Allergies Haldol (Tongue swelling) Oranges (Tongue swelling, Difficulty breathing) penicillin (Hives) Medications Please ask your primary doctor or pharmacist before taking any other medication not listed, including over the counter drugs, herbal medications, vitamins and or supplements as they may interact withyour home medications. What How Much When Why Instructions Last Dose Unchanged acetaminophen 650 Milligram Unchanged calcium-vitamin D (Calcium Plus Vitamin D3 600 mg-12.5 mcg (500 intl units) oral capsule) 2 cap by mouth Once a day with food Unchanged escitalopram (Lexapro 10 mg oral tablet) 1 tab(s) by mouth Once a day Unchanged ibuprofen (Motrin IB 200 mg oral tablet) 2 tab(s) by mouth Every 4 hours as needed for as needed for pain Unchanged LORazepam (LORazepam 1 mg oral tablet) 1 tab(s) by mouth Two (2) times a day Cancer related pain History of cervical cancer Unchanged ondansetron (ondansetron 4 mg oral tablet) 1 tab(s) by mouth Every 6 hours as needed for Nausea/Vomiting Duration: 15 Days Unchanged oxyCODONE (oxyCODONE 10 mg oral tablet) 1 tab(s) by mouth Every 8 hours as needed for for pain Cancer related pain History of cervical cancer Please take this list to your next doctor s visit. Bring all medications you take, including over the counter medications, herbals and other supplements with you to your doctor s visit. Patients and families are reminded to discard old lists and to update any records with all medication providers or retail pharmacies. Education Materials [facility] SAME DAY SURGERY DISCHARGE INSTRUCTIONS PLEASE FOLLOW THE INSTRUCTIONS BELOW MARKED WITH AN X: _x_ Regular Diet: Start with clear liquids, then soup and crackers and gradually add other foods. _x_ Drink extra fluids. ___ Special Diet Instructions: ___ ACTIVITY: _x_ Avoid stress to suture line. Since you have had an anesthetic, it would be advisable not to drive, drink alcohol, or make major decisions over the next 24 hours. You may require more rest tonight and tomorrow. ___ May resume regular activity as tolerated. ___ Restrict activity as follows: ___ ___ Walk Only ___ ___ Do not go up and down stairs. ___ Do not ride in car until ___ ___ Do not drive car. ___ Do not have sexual intercourse. _x_ No heavy lifting, pushing or straining. _x_ Other: _Follow all of Radiology's instructions__ BATHING/SHOWERING: ___ Sponge bathe until office visit. ___ Sitting in tub of warm water may relieve discomfort. ___ May tub bathe _x_ May shower ___ On day after surgery sit in tub of warm water to soak off dressing. DRESSING: _x_ Keep operative area dry and clean _as instructed per Radiology__ _x_ Check the operative area for signs of bleeding. Apply pressure to the bleeding site if necessary and call your physician. ___ Change dressing as necessary using sterile dressing material or bandaid. ___ Reinforce dressing as necessary. ___ Change and care for wound as follows: ___ ___ Wear bra for ___ days following breast surgery for comfort. ___ Change drip pad as needed. ___ Wear scrotal support for comfort. WATCH FOR SIGNS OF INFECTION: (Usually appears 36-48 hours after surgery) Increased temperature (101 degrees Fahrenheit or higher) Redness or swelling Increased pain Foul odor or drainage. If you have any questions, please call your doctor at the number listed on your follow up instructions. Follow all instructions given to you by your physician. Please complete and return the survey you will be receiving in the mail to help us better serve our patients. Form: 1522 ([id number]) R: 02/09 SAVANNAH Nephrostomy/Nephroureteral Tube Exchange Discharge Instructions Interventional Radiology [facility] [address] [place] [address] The procedure that you had done today is called a nephrostomy tube exchange. This is a procedure toreplace a pre-existing tube that drains the urine from the kidney in order to prevent pain, infection and kidney damage. This should occur every 6-12 weeks, depending on your physician's orders and personal condition. Your urine may be blood tinged, in the bag and from regular urination, for up to 48 hours. If you had a nephroureteral tube exchange today, then this procedure is to replace a pre-existing tube that goes from your back into the kidney and down the ureter to the bladder. This tube may be either capped or have a dependent bag attached like a nephrostomy tube. Please follow these instructions: DIET: Resume previous diet as tolerated ACTIVITY: Wear loose, comfortable clothing. Make sure your tube is secure at all times. Avoid tugging at the tube. PAIN CONTROL: Mild back discomfort on the side of the tube placement may occur for the first 24 hours. You may experience the feeling of the need to urinate. Hbkv-bpk-ehhzmag pain medication should be used for pain or discomfort. Please check with the physician who sent you for this procedure for their specific recommendations. If your pain is not relieved or becomes more severe, notify the physician who sent you for this procedure. IF YOU RECEIVED CONSCIOUS SEDATION (IV SEDATION) & YOU ARE DISCHARGED THE SAME DAY You must have someone drive you home when you leave the hospital. For 24 hours after your procedure, do not do anything where you need to make important decisions. This includes operating machinery, signing important documents, etc. MEDICATION: Please resume on . NEPHROSTOMY CARE: Wash your hands well with soap and water before and after caring for your nephrostomy tube. Keep the skin around the nephrostomy tube dry. If the area does get wet, dry the skin completely. Change the dressing every week, or as needed if it is leaking or the dressing becomes saturated. Keep all the ports of the tube and drainage bag as clean as possible to prevent infection. Empty the drainage bags often via the spout at the bottom of the bag. Turn clockwise. Avoid overfilling. Always empty the bag before bed. Some patients will be required to flush their tubes, please check with ordering physician for instructions and supplies. (You do not need to do this unless specifically instructed by your healthcare provider). TUBE PROBLEMS Call Interventional Radiology IMMEDIATELY if the tube falls out. Call Interventional Radiology if you notice decreased or no urine output or if urine leaks from thedressing site from tube. Call your Urologist if any abnormal bleeding, foul odor or drainage, redness, swelling, worsening pain, or fever above 102F. If the catheter falls out, it can be replaced by the doctor ideally within 24 hours. Do not attemptto put the tube back in yourself. BATHING Avoid swimming. You may shower with the nephrostomy bag attached to the skin, sit in a shallow bath, or sponge bathe while the catheter is in place. Be sure to keep the water level below the dressingwhen tub bathing. Please change your dressing if it gets wet. SPECIFIC INSTRUCTIONS TO CHANGE NEPHROSTOMY TUBE DRESSING Supplies needed: Soap and water Clean, dry towel Nephrostomy bag Clean adhesive dressing Gauze Because the nephrostomy tube is located on your back, you will need someone to assist you in changing the dressing. Wash hands well Remove the old dressing, peeling the edges slowly from skin. As the dressing is pulled away from the skin, support the nephrostomy tube with your free hand to prevent placing tension on the tube and accidentally pulling it out. Wash the area around the nephrostomy tube with soap and water. Gently pat the area dry. Need 2 layers of gauze. One layer in between the skin and the tube. Second layer of gauze goes overthe tube. Then place the clean adhesive dressing over the gauze. Supplies may be obtained at: [facility] [address] [facility] [address] [facility] Any questions or concerns, please contact your physician or Interventional Radiology at [phone] from 8-4:30pm Friday-Friday. If you do not have a follow up appointment scheduled at the time of discharge, please call Interventional Radiology at the number listed above. Additional Information VACCINATE! IT SAVES LIVES! Members of the community who have not yet received the COVID-19 vaccine and would like to receive it can visit one of [facility] vaccine clinics. There are many vaccine clinic locations within the [facility]. For locations and available times, please visit [email or web address].coronavirus.[place].gov/. It is important to note that some COVID mobile vaccine clinics are held outdoors and may be canceled in rainy or stormy conditions. To learn more about pediatric vaccinations (ages 5-11), we invite you to visit the [facility] webpage. [email or web address].[email or web address].org/pages/[email or web address]-Uldyl-Rhvvbuixqeg-Eqdaslsltd-[email or web address] [email or web address].htmlTo learn more about the COVID-19 vaccine, we invite you to visit the CDC website for a list of frequently asked questions.https://www.cdc.gov/coronavirus/2019-ncov/vaccines/faq.html [facility] Patient Portal Access Instructions: Stay connected with your healthcare team and access your personal medical information anytime with the [facility] Patient Portal. Please follow the directions below to create your [facility] account: 1.Access the email account you provided upon registration to the hospital/physician office.2.Look for an invitation email from [facility].3.Open the email and access the invitation link: AcceptInvitation to [facility]4.Fill in the required quintero to create your account. To access your account, visit [email or web address]. Click the blue button labeled Access Patient Portal and then log in with the username and password that you created in the steps above. You will be able to view your test results, lab results, a summary of your visits, upcoming appointments and more. There is also a convenient messaging option where you can send secure messages to your p [employer]. In addition, you will have the ability to download any documents or summaries to your computer and/or send the information securely to a physician. Remember that your healthcare information is confidential, so carefully consider who you will allowto register on the [facility] [employer] Patient Portal for access to your information. You can also access the [facility] [employer] Patient Portal on the [facility] joya. Simply click on Patient Portal and then log into your account. If you would like to receive a full copy of your medical records, please contact the [facility] Medical Records Department by calling [phone], Friday through Friday between 8 a.m. and 4:30 p.m. HOW TO SAFELY DISPOSE OF PRESCRIPTION MEDICATIONS Please use one of the following methods to safely dispose of your unused medications. 1.Use a drug disposal kit: the drug disposal pouch allows you to safely discard your old and unuseddrugs. Ask your nurse to give you one when you are discharged.2.Visit a local take-back location: Many local pharmacies and police departments have programs that collect old and unwanted prescriptiondrugs. Call your local pharmacy or go to http://Wishabi.ConsumerBell/2W7Hl1z to find one close to you.3.Make use of household items: Use cat litter or old coffee grounds to dispose medications if other options arenot available. Mix your drugs with these household products, seal them in an airtight container andthrow it into the garbage. Call [facility]: [phone] to be sure your drugs can be disposed of in this way. Some medicines may require a different approach.4.Never flush your medications down the toilet. IF YOU HAVE BEEN PRESCRIBED AN OPIOID FOR PAIN If you have been prescribed an opioid (such as hydrocodone, oxycodone or morphine), it is critical to understand the possible side effects and risks of opioid pain medications. Even when taken as directed, opioids can have several side effects including: Tolerance, meaning you might need to take more of a medication for the same pain relief. Nausea, vomiting and/or constipation. Sleepiness, dizziness, dry mouth, confusion, depression or itching. Physical dependence, meaning you have withdrawal symptoms when a medication is stopped, can develop within a few days. KNOW YOUR RESPONSIBILITIES It is important to know exactly how much and how often to take the opioid pain medications you are prescribed. Never take opioids in higher amounts or more often than prescribed. Do not combine opioids with alcohol or other drugs that cause drowsiness, such as benzodiazepines, also known as benzos, including diazepam and alprazolam, muscle relaxants or sleep aids. Never sell or share prescription opioids. This is illegal. Store opioids in a secure place and out of reach of others (including children, family, friends and visitors). The last page of this document has been signed and retained as a CHART COPY. Signatures Patient Education Materials 1-SDS Discharge Instructions Template (08/2018) Radiology- Nephrostomy/Nephroureteral Tube Exchange 12/26/2022(CUSTOM) Medication Leaflets My discharge plan and instructions have been reviewed and explained to me and I,LALY NAVAS understand my current condition and have read and understand these discharge instructions. I have received a written copy of the plan/instructions. If I have questions, I am aware that I should contact my doctor. 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 I have examined the patient, reviewed the H&P, and there are no changes unless noted below: _ The most recent H&P/Office Note was performed on 01/06/2024 and can be found in the [facility] ([facility]). Tadeo Leija PA-C Interventional Radiology Pager: [phone] IR dept: x [phone] Available on itzat Future Appointments Appointment Date:02/03/2024 10:30:00 AM Scheduled Provider:OLE PACE MD Location:[place] Palliative Appointment Type:PALL OV Follow Up Appointment Date:04/07/2024 03:20:00 PM Scheduled Provider:BRITTNI LU Location:[facility] Appointment Type:SO OV Follow Up Future Scheduled Tests Laboratory* Urinalysis 02/14/23 Radiology* IR Neph Cath-Neph Ureter W/Guide Left 06/30/23 * IR Nephrostomy Tube Change Lt Guide 09/04/23 [facility] 03-20-2024 Note IR Procedure Record Summary Primary Physician: Finalized Date/Time: 01/21/24 13:58:22 Pt. Name: LALY NAVAS/Sex: 1990 Female Med Rec #: [id number] Physician: Financial #: [id number] Pt. Type: S Room/Bed: [place]/A Admit/Disch: 01/21/24 11:00:42 - Institution: Allergies identified in patient's electronic medical record at time of printing on 01/21/24 Entry 1 Entry 2 Entry 3 Substance Haldol Oranges penicillin Reaction Type Allergy Allergy Allergy Last Modified By: Fany Ruelas LPN, Kimberly V. RN Holt, Kimberly V. RN 11/19/23 09:39:23 07/21/23 10:11:02 07/21/23 10:10:45 Case Attendance- IR Entry 1 Entry 2 Entry 3 Case Attendee LACEY LOERA ANTHONY J Beans, Aaron RN PA-C LITIGATION ATTORNEY ASSOCIATE-SCALEMAKER Role Performed Radiology PA/RA Anesthesiologist Western Philosophy Professor 1 Details Time In 01/21/24 13:08:00 01/21/24 13:05:00 01/21/24 13:08:00 Time Out 01/21/24 13:35:00 01/21/24 13:46:00 01/21/24 13:46:00 Procedure/Preference IR Nephrostomy Exchange IR Nephrostomy Exchange IR Nephrostomy Exchange Card (SN) (SN) (SN) Last Modified By: Dustin Palm RN, Aaron RN Beans, Aaron RN 01/21/24 13:41:33 01/21/24 13:41:33 01/21/24 13:41:33 Entry 4 Entry 5 Entry 6 Case Attendee Alicia Jean RN, Colten G Craemer, Alexis Tech Role Performed Western Philosophy Professor 1 Scrub Technologist Circulating Technologist Details Time In 01/21/24 13:08:00 01/21/24 13:08:00 01/21/24 13:08:00 Time Out 01/21/24 13:46:00 01/21/24 13:46:00 01/21/24 13:46:00 Procedure/Preference IR Nephrostomy Exchange IR Nephrostomy Exchange IR Nephrostomy Exchange Card (SN) (SN) (SN) Last Modified By: Dustin Palm RN, Aaron RN Beans, Aaron RN 01/21/24 13:41:33 01/21/24 13:41:33 01/21/24 13:41:33 Radiology Procedures- IR Entry 1 Procedure/Preference IR Nephrostomy Exchange Actual Procedure IR NEPH TUBE CHANGE Card (SN) Primary Procedure Yes Primary Surgeon VIRAL MANUEL MD Anesthesia/Sedation MAC Type Additional Procedure Times Start 01/21/24 13:27:00 Stop 01/21/24 13:35:00 Specialty Service SN Radiology Procedure EBL 0 mL Last Modified By: Alicia Jean RN 01/21/24 13:56:11 Radiology Procedure Details - IR Entry 1 Radiology Sedation Case Times Sedation Total Time 0 Radiology - Fluid/Drainage Radiology Contrast Contrast Used? Yes Dose 10 mL Medication OMNIPAQUE 350 50ML 10/PK Y-540 [facility] [id number] Radiology Flouroscopy Fluoroscopy Used? Yes Fluoro Dose (mGy) 9.52 Fluoro Time 0.8 minutes Radiology Local Local Used? Yes Local Type: lido 2 % Local Dose 8cc Radiology Procedure Site Site/Location Left flank Site Condition No complications Suture 2.0 Ethibond Suture Dressing Type Tagaderm, Gauze sponge 4 X 4 Technologist Notes Left neph exchange using 10F x 35cm M-Drain lot # [id number] Last Modified By: Dustin Palm RN 01/21/24 13:41:21 General Case Data - IR Entry 1 Case Information Room AH IR 17 Case Level IR Level 3 Wound Class None Specialty SN Radiology Procedure ASA Class 3 Diagnosis Preop Diagnosis hydronephrosis Postop Same As Preop Yes Postop Diagnosis hydronephrosis Last Modified By: Dustin Palm RN 01/21/24 13:33:31 Procedure Case Times- IR Entry 1 Patient In Procedure Patient In OR 01/21/24 13:08:00 Patient Out of OR 01/21/24 13:46:00 Procedure Start/Stop Procedure Start Time 01/21/24 13:27:00 Procedure Stop Time 01/21/24 13:35:00 Last Modified By: Dustin Palm RN 01/21/24 13:41:32 Immediate Post Procedure Note - IR Entry 1 Immediate Post Yes Findings Left neph tube change Procedure Note displayed for Physician to review Closure Technique Closure Technique Other than Primary Last Modified By: Dustin Palm RN 01/21/24 13:35:28 Immediate Post Procedure Note - IR Signed By: LACEY LOERA PA-C 01/21/24 13:35 Allergy Information- IR Entry 1 Allergies Reviewed? Yes Allergies Reviewed Patient With Last Modified By: Dustin Palm RN 01/21/24 13:16:30 Radiology Protocols/Time Out- IR Entry 1 Preprocedure Clinician Verifies Correct patient ID When Clinically Confirmation of correct using name & date Indicated side(s) and site(s), or MRN, Accurate Correct diagnostic and procedure, complete radiology tests Informed Consent, H & P available update immediately prior to procedure, if applicable OR/Procedure Room/Bedside Time 01/21/24 13:27:00 Clinician Verifies Correct patient identity including EMR & records using name and date or medical record number, Accurate procedure consent form, Correct patient position, Necessary equipment is available, Anticipated non-routine events with surgical team (case duration, estimated blood loss, patient specific concerns). When Applicable Confirmation correct Team Members LACEY LOERA side and site marked, Present for Time Out BALDOMERO CHU ANTHONY J Relevant images and LITIGATION ATTORNEY ASSOCIATE-Néstor ESPINOZA Aaron results are properly RNMiranda Brittaney labeled and RN, Waldemar Winters, appropriately Lorenzo Adame Tech displayed, Alcohol based prep dry, Double verification of sterility indicators complete Instrument Sterility Procedure IR Nephrostomy Exchange (SN) Last Modified By: Dustin Palm RN 01/21/24 13:30:09 Skin Prep- IR Entry 1 Procedure IR Nephrostomy Exchange (SN) Skin Prep Prep Area Flank Side Left By Waldemar Winters Prep Agents Chloraprep Hair Removal Method N/A Last Modified By: Dustin Palm RN 01/21/24 13:22:52 Patient Positioning- IR Entry 1 Procedure IR Nephrostomy Exchange Body Position OP Prone (SN) Feet Uncrossed? Yes Pressure Points Yes Checked Last Modified By: Dustin Palm RN 01/21/24 13:23:02 Radiology Procedure Plan - IR Entry 1 Radiology - Nursing Care Plan Outcome Statement The patient Outcome Statement The patient receives demonstrates knowledge Cont. appropriate of the expected medication(s), safely responses to the administered during the operative/invasive perioperative/invasive procedure., The period., The patient is patient's value system, free from signs and lifestyle, ethnicity, symptoms of injury and culture are caused by extraneous considered, respected, objects (equipment, and incorporated in the instrumentation, perioperative plan of sponges, or sharps). care., The patient is free from signs and symptoms of infection., The patient is free from signs and symptoms of injury related to positioning. Radiology - Action Plan Outcomes Met? Yes Mottler Operator Dustin Palm RN Completing Procedure Plan Last Modified By: Dustin Palm RN 01/21/24 13:32:48 Case Comments Finalized By: Alicia Jean RN Document Signatures Signed By: Alicia Jean RN 01/21/24 13:57 Alicia Jean RN 01/21/24 13:58 [id number] Anesthesiology Consult note Patient: LALY NAVAS Age: 33 years Sex: Female : 1990 Associated Diagnoses: None Author: HILDA HADDAD MD Preoperative Information NPO >8 hours Anesthesia history Patient's history: negative. History of Present Illness 33yoF with PMH h/o cervical cancer, DVT, hydronephrosis, chronic pain, CKD, ESBL presenting for nephrostomy tube exchange. Denies CP, SOB, fever, recent cough, cold or congestion; >4 METS, no GERDsx, N or V today. Health Status Allergies: Allergic Reactions (Selected) Severity Not Documented Haldol- Tongue swelling. Oranges- Tongue swelling and difficulty breathing. Penicillin- Hives., Allergies (3) ActiveReaction HaldolTongue swelling OrangesTongue swelling penicillinHives Current medications: (Selected) Inpatient Medications Ordered NS 1,000 mL: 20 mL/hr, Intravenous Normal Saline 1,000 mL: 20 mL/hr, Intravenous lidocaine 1% preservative-free injectable solution: 2.5 mg, 0.25 mL, Intradermal, prep pharm lidocaine 1% preservative-free injectable solution: 2.5 mg, 0.25 mL, Intradermal, prep pharm Prescriptions Prescribed Calcium Plus Vitamin D3 600 mg-12.5 mcg (500 intl units) oral capsule: 2 cap(s), Oral, qDay, with food, 120 EA, 0 Refill(s) LORazepam 1 mg oral tablet: 1 mg, 1 tab(s), Oral, BID, 60 tab(s), 1 Refill(s) Lexapro 10 mg oral tablet: 10 mg, 1 tab(s), Oral, qDay, 30 tab(s), 1 Refill(s) ondansetron 4 mg oral tablet: 4 mg, 1 tab(s), Oral, q6h, for 15 day(s), PRN: Nausea/Vomiting, 60 tab(s), 4 Refill(s) oxyCODONE 10 mg oral tablet: 10 mg, 1 tab(s), Oral, q8h, PRN: for pain, 90 tab(s), 0 Refill(s) Documented Medications Documented Motrin IB 200 mg oral tablet: 400 mg, 2 tab(s), Oral, q4h, PRN: as needed for pain, 120 tab(s), 0 Refill(s) acetaminophen: 650 mg, 0 Refill(s), Medications (1) Active Scheduled: (0) Continuous: (1) NS (0.9% nacl) 1,000 mL 1,000 mL, Intravenous, 20 mL/hr PRN: (0) Problem list: Medical Anxiety / SNOMED CT 75288971 / Confirmed Asthma / SNOMED CT 547909167 / Confirmed Decreased appetite / SNOMED CT 417644089 / Confirmed Dehydration / SNOMED CT 67446702 / Confirmed Port-A-Cath in place / SNOMED CT 7429503644 / Confirmed Bilateral flank pain / SNOMED CT 075807192 / Confirmed History of chemotherapy / SNOMED CT 2931704626 / Confirmed Hx of cervical cancer / SNOMED CT 0532068653 / Confirmed History of radiation therapy / SNOMED CT 1362636249 / Confirmed Hydronephrosis, left / SNOMED CT 40685693 / Confirmed Acute kidney injury / SNOMED CT 24226526 / Confirmed Left flank pain / SNOMED CT 299425958 / Confirmed Cervical cancer / SNOMED CT 466075649 / Confirmed Moderate protein-calorie malnutrition / SNOMED CT 944517307 / Confirmed Nausea and vomiting / SNOMED CT 44307330 / Confirmed Cancer related pain / SNOMED CT 8585021398 / Confirmed DVT prophylaxis / SNOMED CT 874201687 / Confirmed Palliative care encounter / SNOMED CT 283491554 / Confirmed Premature menopause / SNOMED CT 8384512458 / Confirmed Pyelonephritis / SNOMED CT 72335471 / Confirmed Nephrostomy status / SNOMED CT 842563156 / Confirmed Complicated UTI (urinary tract infection) / SNOMED CT 779367333 / Confirmed Obstructive uropathy / SNOMED CT 96004281 / Confirmed, Active Problems (28) Acute kidney injury Anxiety Asthma Bilateral flank pain Bradycardia Cancer related pain Cervical cancer Complicated UTI (urinary tract infection) Contact lenses COVID-19 Decreased appetite Dehydration DVT prophylaxis Fall Glasses History of chemotherapy History of radiation therapy Hx of cervical cancer Hydronephrosis, left Left flank pain Moderate protein-calorie malnutrition Nausea and vomiting Nephrostomy status Obstructive uropathy Palliative care encounter Port-A-Cath in place Premature menopause Pyelonephritis Histories Past Medical History: Resolved ESBL (extended spectrum beta-lactamase) producing bacteria infection (1962961779): Onset on 02/23/2023 at 32 years. Resolved on 05/07/2023 at 32 years. ESBL (extended spectrum beta-lactamase) producing bacteria infection (6588759917): Onset on 08/09/2022 at 31 years. Resolved on 01/02/2023 at 32 years. Comments: 01/02/2023 SUMEET 10:02 JAMAL Haynes Removed ESBL disease alert from 08/2022 per infection control protocol on 01/02/23. Mass of cervix (175023878): Resolved. Chronic kidney disease, stage 3 (moderate) (8956468127): Resolved. Hydronephrosis of left kidney (99064088): Resolved. Cervicitis (559616128): Resolved. Encounter for antineoplastic chemotherapy (883947387): Resolved. Tinnitus (891893301): Resolved. History of COVID-19 (5957009845): Resolved. Procedure history: Nephrostomy tube (595031989) on 10/05/2023 at 32 Years. Comments: 11/19/2023 9:37 Fany Sanchez STEAMBOAT INSPECTOR left side Nephrostomy with tube drainage (69147794) in the month of 07/2023 at 32 Years. Comments: 06/13/2020 10:09 JAMAL Guaman left Nephrostomy with tube drainage (07707692) on 01/10/2021 at 30 Years. Cannulation of Portacath (459703458) in 2020 at 30 Years. Comments: 06/13/2020 10:09 JAMAL Guaman right JJ stent ([id number]) on 11/15/2020 at 29 Years. Radiation (816601893) in the month of 06/2020 at 29 Years. Comments: 06/26/2020 6:12 GINNY Burton RN Mayi Jenkins via tandems and oviod X2 Cervical biopsy (65174557) in 2019 at 29 Years. Comments: 04/12/2020 18:25 Eri Conte RN pt states she had a cervical biopsy done on 04/07/2020 at [facility] for a cervical mass Tumor cells, benign (62415768) in 2001 at 11 Years. 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 done at [facility] in [place] Social History Social & Psychosocial Habits Alcohol 01/06/2024isk Assessment: Denies Alcohol Use 01/06/2024 Use: Past Type: Beer Frequency: 1-2 times per week Substance Abuse 01/06/2024 Use: Never 01/06/2024isk Assessment: Denies Substance Abuse Tobacco 01/06/2024 Tobacco Use: Former smoker, quit more Exposure to Tobacco Smoke Lives in non-smoking home Started at age: 19 Years Stopped at age: 32 Years Smokeless tobacco use: Never 01/06/2024 Tobacco Use: Former smoker, quit more Type: Cigarettes Tobacco use per day: 10 Number of years: 10 Started at age: 19 Years Stopped at age: 32 Years Previous treatment: None Ready to change: Yes Home/Environment 01/06/2024isk Assessment: No Risk 01/06/2024 Domestic Concerns None Living situation: Home/Independent Safe place to go: Yes Lives In Mobile home Current Home Treatments None Special Services and Community Resources None Financial concerns: No Marital Status of Patient if Patient Independent Adult: Unmarried Nutrition/Health 01/06/2024 Type of diet: Regular Appetite Fair Eating Difficulties None Caffeine intake amount: 1 can pop per day 01/06/2024isk Assessment: No Risk 01/06/2024 Type of diet: Regular Appetite Poor Sexual 01/06/2024 Sexually active: Yes First active at age: 18 Years Current partners: 1 Number of lifetime partners: 7 Self described orientation: Straight or heterosexual Other contraceptive use: condoms History of sexual abuse: No What is your current gender identity? (Check all that apply) Identifies as female . Physical Examination Vital Signs(last 24 hrs) Last Charted XTU257 mmHg (JAN 20 11:50) DBP84 mmHg (JAN 20 11:50) Measurements from flowsheet : Measurements 01/21/2024 11:50 EDT Height 167.6 cm Height in inches 66 inch(es) Admission Weight 58.2 kg Weight Lbs 128 lb [place] Body Weight 59.26 kg Admission Body Mass Index 20.72 m2 General: Alert and oriented, No acute distress. Airway: Normal mouth, Normal neck range of motion. Mallampati classification: II (soft palate, fauces, uvula visible). Dentition Evaluation: Intact. Neck: Supple. Respiratory: Lungs are clear to auscultation, Respirations are non-labored. Cardiovascular: Normal rate, Regular rhythm. Heart Sounds: Normal. Neurologic: Alert, Oriented. Review / Management Results review: Labs (Last four charted values) WBC H 11.3(JAN 20) Hgb 15.0(JAN 20) Hct 44.3(JAN 20) Plt 429(JAN 20) PT 12.6(JAN 20) INR 1.1(JAN 20) . Documentation reviewed: Current records. Assessment and Plan [employer] Society of Anesthesiologists (ASA) physical status classification: Class III. Anesthetic Preoperative Plan Premedication: intravenous. Anesthetic technique: MAC. Induction: intravenously. Maintenance airway: Mask. Postoperative pain management: Per surgeon. Risks discussed: nausea, vomiting, headache, sore throat, dental injury, hypotension, allergic reaction, serious complications. Informed consent: signed by patient. Notes: discussed and consented pt for mac anesthesia however also discussed and consented for general anesthesia if necessary for conversion. Digitally Signed by HILDA HADDAD MD on 01/21/2024 01:09 PM [id number] History and physical note IR PREPROCEDURE H&P UPDATE IF A HISTORY AND PHYSICAL EXAMINATION HAS BEEN COMPLETED PRIOR TO ADMISSION TO THE HOSPITAL, AN UPDATED EXAMINATION MUST BE COMPLETED AND DOCUMENTED WITHIN 24 HOURS AFTER ADMISSION OR REGISTRATION BUT BEFORE A SURGICAL PROCEDURE. I have examined the patient, reviewed the H&P, and there are no changes unless noted below: _ The most recent H&P/Office Note was performed on 01/06/2024 and can be found in the [facility] ([facility]). Tadeo Leija PA-C Interventional Radiology Pager: [phone] IR dept: x [phone] Available on itzat Digitally Signed by TADEO LEIJA PA-C on 01/21/2024 01:01 PM Digitally Signed by VIRAL MANUEL MD on 01/21/2024 09:32 PM [facility] [id number] Interventional radiology Progress note Sera had called today and said she is not feeling well and to cancel her neph tube change with anesthesia. I called anesthesia and let them know and transferred her to [place] for rescheduling. Digitally Signed by Patti Ching Systems Integrator on 01/14/2024 08:59 AM [facility] [id number] NoteORIGINAL PROCEDURE: IR NEPHROSTOMY TUBE CHANGE MODERATE CONSCIOUS SEDATION 12/03/2023 HISTORY: ORDERING SYSTEM PROVIDED HISTORY: Reason for Exam: 6 week change TECHNIQUE: The procedure and risks of the procedure explained to the patient and informed consent was obtained. The patient was placed prone on the fluoroscopic table and contrast was injected through the existing left nephrostomy tube demonstrating the catheter projecting over the superior pole of the collecting system. The catheter was exchanged over a 0.035 inch wire for an angle tipped catheter which was used to select the renal pelvis. The catheter was then exchanged for a new pigtail catheter. Contrast injection confirmed satisfactory positioning of the new catheter. The contrast was aspirated and the catheter was flushed with saline. The catheter was attached to a drainage bag by gravity. The site was bandaged sterilely. Patient tolerated the procedure well with no immediate complications and was discharged in stable condition. CONTRAST: 10 cc contrast SEDATION: Deep sedation was provided by the anesthesiology department FLUOROSCOPY DOSE AND TYPE: Radiation Exposure Index: 5.4 mGy IMPRESSION: Successful fluoroscopic guided left nephrostomy tube exchange Interpreted by: Rita Yeh Preliminary Report By: Rita Yeh Electronically signed By Rita Yeh Dictated Date: 12/04/2023 6:31:25 PM Prelim Date: 12/04/2023 6:36:53 PM Sign Date: 12/04/2023 6:36:53 PM Ordering Provider: [facility]12-03-2023 Hospital Discharge instructions Patient Education 12/03/2023 12:30:02 Radiology- Nephrostomy/Nephroureteral Tube Exchange 12/26/2022(CUSTOM) SAVANNAH Nephrostomy/Nephroureteral Tube Exchange Discharge Instructions Interventional Radiology [facility] [address] [place] [address] The procedure that you had done today is called a nephrostomy tube exchange. This is a procedure toreplace a pre-existing tube that drains the urine from the kidney in order to prevent pain, infection and kidney damage. This should occur every 6-12 weeks, depending on your physician's orders and personal condition. Your urine may be blood tinged, in the bag and from regular urination, for up to 48 hours. If you had a nephroureteral tube exchange today, then this procedure is to replace a pre-existing tube that goes from your back into the kidney and down the ureter to the bladder. This tube may be either capped or have a dependent bag attached like a nephrostomy tube. Please follow these instructions: DIET: Resume previous diet as tolerated ACTIVITY: Wear loose, comfortable clothing. Make sure your tube is secure at all times. Avoid tugging at the tube. PAIN CONTROL: Mild back discomfort on the side of the tube placement may occur for the first 24 hours. You may experience the feeling of the need to urinate. Azil-czu-ikbvbzo pain medication should be used for pain or discomfort. Please check with the physician who sent you for this procedure for their specific recommendations. If your pain is not relieved or becomes more severe, notify the physician who sent you for this procedure. IF YOU RECEIVED CONSCIOUS SEDATION (IV SEDATION) & YOU ARE DISCHARGED THE SAME DAY You must have someone drive you home when you leave the hospital. For 24 hours after your procedure, do not do anything where you need to make important decisions. This includes operating machinery, signing important documents, etc. MEDICATION: Please resume on . NEPHROSTOMY CARE: Wash your hands well with soap and water before and after caring for your nephrostomy tube. Keep the skin around the nephrostomy tube dry. If the area does get wet, dry the skin completely. Change the dressing every week, or as needed if it is leaking or the dressing becomes saturated. Keep all the ports of the tube and drainage bag as clean as possible to prevent infection. Empty the drainage bags often via the spout at the bottom of the bag. Turn clockwise. Avoid overfilling. Always empty the bag before bed. Some patients will be required to flush their tubes, please check with ordering physician for instructions and supplies. (You do not need to do this unless specifically instructed by your healthcare provider). TUBE PROBLEMS Call Interventional Radiology IMMEDIATELY if the tube falls out. Call Interventional Radiology if you notice decreased or no urine output or if urine leaks from thedressing site from tube. Call your Urologist if any abnormal bleeding, foul odor or drainage, redness, swelling, worsening pain, or fever above 102F. If the catheter falls out, it can be replaced by the doctor ideally within 24 hours. Do not attemptto put the tube back in yourself. BATHING Avoid swimming. You may shower with the nephrostomy bag attached to the skin, sit in a shallow bath, or sponge bathe while the catheter is in place. Be sure to keep the water level below the dressingwhen tub bathing. Please change your dressing if it gets wet. SPECIFIC INSTRUCTIONS TO CHANGE NEPHROSTOMY TUBE DRESSING Supplies needed: Soap and water Clean, dry towel Nephrostomy bag Clean adhesive dressing Gauze Because the nephrostomy tube is located on your back, you will need someone to assist you in changing the dressing. Wash hands well Remove the old dressing, peeling the edges slowly from skin. As the dressing is pulled away from the skin, support the nephrostomy tube with your free hand to prevent placing tension on the tube and accidentally pulling it out. Wash the area around the nephrostomy tube with soap and water. Gently pat the area dry. Need 2 layers of gauze. One layer in between the skin and the tube. Second layer of gauze goes overthe tube. Then place the clean adhesive dressing over the gauze. Supplies may be obtained at: [facility] [address] [facility] [address] [facility] Any questions or concerns, please contact your physician or Interventional Radiology at [phone] from 8-4:30pm Friday-Friday. If you do not have a follow up appointment scheduled at the time of discharge, please call Interventional Radiology at the number listed above. Follow Up Care 10/14/2023 17:16:46 With:RITA YEH MD, [facility] Address: [address] [place] [address] [place] [address]- [phone] When: Unknown Comments:Follow-up as scheduled. Schedule appointment as soon as possible [facility] 01-31-2024 Evaluation + Plan noteExtracted from: Title:IR Pre-Procedure H&P Author:TAMIA LEIJA PA-C Date:12/03/23 IR PREPROCEDURE H&P UPDATE IF A HISTORY AND PHYSICAL EXAMINATION HAS BEEN COMPLETED PRIOR TO ADMISSION TO THE HOSPITAL, AN UPDATED EXAMINATION MUST BE COMPLETED AND DOCUMENTED WITHIN 24 HOURS AFTER ADMISSION OR REGISTRATION BUT BEFORE A SURGICAL PROCEDURE. I have examined the patient, reviewed the H&P, and there are no changes unless noted below: _ The most recent H&P/Office Note was performed on 11/19/2023 and can be found in the [facility] ([facility]). Tadeo Leija PA-C Interventional Radiology Pager: [phone] IR dept: [phone] [facility] on [facility] Future Appointments Appointment Date:12/08/2023 03:00:00 PM Scheduled Provider:OLE PACE MD Location:[place] Appointment Type:PALL OV Follow Up Appointment Date:12/08/2023 03:40:00 PM Scheduled Provider:BRITTNI LU Location:[facility] Appointment Type:SO OV Appointment Date:01/14/2024 10:00:00 AM Scheduled Provider: Location:IR Appointment Type:IR Nephrostomy Exchange Future Scheduled Tests Laboratory* Urinalysis 02/14/23 Radiology* IR Nephrostomy Exchange 01/14/24 * IR Neph Cath-Neph Ureter W/Guide Left 06/30/23 * IR Nephrostomy Tube Change Lt Guide 09/04/23 [facility] 01-31-2024 Note* Lexi Marcano RN: SIGN, AUTHOR, SIGN, AUTHOR, PERFORM Event Display: IR Procedure Record Authored Date: [id number] IR Procedure Record Summary Primary Physician: RITA YEH MD Finalized Date/Time: 12/03/23 11:48:38 Pt. Name: LALY NAVAS Austen Chapman./Sex: 1990 Female Med Rec #: [id number] Physician: Financial #: [id number] Pt. Type: S Room/Bed: [place]8/A Admit/Disch: 12/03/23 09:22:31 - Institution: Allergies identified in patient's electronic medical record at time of printing on 12/03/23 Entry 1 Entry 2 Entry 3 Substance Haldol Oranges penicillin Reaction Type Allergy Allergy Allergy Last Modified By: Fany Ruelas LPN, Kimberly V. RN Holt, Kimberly V. RN 11/19/23 09:39:23 07/21/23 10:11:02 07/21/23 10:10:45 Case Attendance- IR Entry 1 Entry 2 Entry 3 Case Attendee RITA YEH MD, Jacque M. Herrick, [employer] Leatha Role Performed Primary Surgeon Scrub Technologist Circulating Technologist Details Time In 12/03/23 11:18:00 12/03/23 11:18:00 12/03/23 11:18:00 Time Out 12/03/23 11:53:00 12/03/23 11:53:00 12/03/23 11:53:00 Procedure/Preference IR Nephrostomy Exchange IR Nephrostomy Exchange IR Nephrostomy Exchange Card (SN) (SN) (SN) Last Modified By: Lexi Marcano RN, Caitlin C RN Rodriguez, Caitlin C RN 12/03/23 11:48:19 12/03/23 11:48:19 12/03/23 11:48:19 Entry 4 Case Attendee Lexi Marcano RN Role Performed Western Philosophy Professor 1 Details Time In 12/03/23 11:18:00 Time Out 12/03/23 11:53:00 Procedure/Preference IR Nephrostomy Exchange Card (SN) Last Modified By: Lexi Marcano RN 12/03/23 11:48:19 Radiology Procedures- IR Entry 1 Procedure/Preference IR Nephrostomy Exchange Actual Procedure IR NEPH TUBE CHANGE Card (SN) Primary Procedure Yes Primary Surgeon RITA YEH MD Anesthesia/Sedation MAC Type Additional Procedure Times Start 12/03/23 11:35:00 Stop 12/03/23 11:45:00 Specialty Service SN Radiology Procedure EBL 0 mL Last Modified By: Lexi Marcano RN 12/03/23 11:48:34 Radiology Procedure Details - IR Entry 1 Radiology Sedation Case Times Sedation Total Time 0 Radiology - Fluid/Drainage Radiology Contrast Contrast Used? Yes Dose 10 mL Medication OMNIPAQUE 300 50ML 10/PK Y-530 [facility] [id number] Radiology Flouroscopy Fluoroscopy Used? Yes Fluoro Dose (mGy) 5.39 Fluoro Time 1.6 min Radiology Local Local Used? Yes Local Type: lidocaine 2% Local Dose 4cc Radiology Procedure Site Site/Location left flank Site Condition No complications Dressing Type Bioclusive 4 X 5, Gauze Technologist Notes 10f x 35cm m-drain sponge 4 X 4 lot#[id number] Last Modified By: Lexi Marcano RN 12/03/23 11:45:24 General Case Data - IR Entry 1 Case Information Room IR 17 Case Level IR Level 3 Wound Class None Specialty SN Radiology Procedure ASA Class 3 Diagnosis Preop Diagnosis 6 week change Postop Same As Preop Yes Postop Diagnosis 6 week change Last Modified By: Lexi Marcano RN 12/03/23 11:33:33 Procedure Case Times- IR Entry 1 Patient In Procedure Patient In OR 12/03/23 11:18:00 Patient Out of OR 12/03/23 11:53:00 Procedure Start/Stop Procedure Start Time 12/03/23 11:35:00 Procedure Stop Time 12/03/23 11:45:00 Last Modified By: Lexi Marcano RN 12/03/23 11:48:17 Immediate Post Procedure Note - IR Entry 1 Immediate Post Yes Procedure Note displayed for Physician to review Closure Technique Closure Technique Other than Primary Last Modified By: eLxi Marcano RN 12/03/23 11:32:32 Immediate Post Procedure Note - IR Signed By: RITA YEH MD 12/03/23 11:46 Allergy Information- IR Entry 1 Allergies Reviewed? Yes Allergies Reviewed Patient With Last Modified By: Lexi Marcano RN 12/03/23 11:29:37 Radiology Protocols/Time Out- IR Entry 1 Preprocedure Clinician Verifies Correct patient ID When Clinically Confirmation of correct using name & date Indicated side(s) and site(s), or MRN, Accurate Correct diagnostic and procedure, complete radiology tests Informed Consent, H & P available, Required update immediately blood products, prior to procedure, if implants, devices applicable and/or special equipment available OR/Procedure Room/Bedside Time 12/03/23 11:35:00 Clinician Verifies Correct patient identity including EMR & records using name and date or medical record number, Accurate procedure consent form, Correct patient position, Necessary equipment is available, Anticipated non-routine events with surgical team (case duration, estimated blood loss, patient specific concerns)., Parada patient factors for recovery and management identified with surgical team. When Applicable Confirmation correct Team Members RITA YEH MD, side and site marked, Present for Time Out Karolina Prater, Relevant images and Sam Granger results are properly L, Lexi Marcano labeled and RN appropriately displayed, Alcohol based prep dry, Double verification of sterility indicators complete Instrument Sterility Procedure IR Nephrostomy Exchange (SN) Last Modified By: Lexi Marcano RN 12/03/23 11:36:41 Patient Positioning- IR Entry 1 Procedure IR Nephrostomy Exchange Body Position OP Prone (SN) Feet Uncrossed? Yes Pressure Points Yes Checked Last Modified By: Lexi Marcano RN 12/03/23 11:32:26 Radiology Procedure Plan - IR Entry 1 Radiology - Nursing Care Plan Outcome Statement The patient Outcome Statement The patient receives demonstrates knowledge Cont. appropriate of the expected medication(s), safely responses to the administered during the operative/invasive perioperative/invasive procedure., The period., The patient is patient's value system, free from signs and lifestyle, ethnicity, symptoms of injury and culture are caused by extraneous considered, respected, objects (equipment, and incorporated in the instrumentation, perioperative plan of sponges, or sharps)., care., The patient is The patient is free free from signs and from signs and symptoms symptoms of infection., of electrical injury. The patient is free from signs and symptoms of injury related to positioning. Radiology - Action Plan Outcomes Met? Yes Mottler Operator Lexi Marcano RN Completing Procedure Plan Last Modified By: Lexi Marcano RN 12/03/23 11:33:21 Case Comments <None> Finalized By: Lexi Marcano RN Document Signatures Signed By: Lexi Marcano RN 12/03/23 11:48 Lexi Marcano RN 12/03/23 11:48 [facility] 01-31-2024 Summary of episode note Discharge Instructions Thank you for allowing [facility] to assist you with your healthcare needs. The following is importantdischarge information regarding your hospital visit. Your Care Team PHYSICIAN, NONE What to do next Scheduled Follow-Up Appointments Appointment Type When With Where Contact InformationPALL OV Follow Up 12/08/2023 03:00 PM OLE MCNEIL MD [facility] SO OV 12/08/2023 03:40 PM BRITTNI COLEMAN APRN-HAZARDOUS WASTE REMOVER [facility] [address] [place] [phone] IR Nephrostomy Exchange 01/14/2024 10:00 AM EDT IR Follow Up Appointments Follow Up with RITA YEH MD, [facility] When Why: Follow-up as scheduled. Schedule appointment as soon as possible Where: [address] [place] [address] [place] [address] [phone] The Following Activity and Diet Have Been Ordered for You No qualifying data available. No qualifying data available. The Following Equipment Has Been Ordered for You No qualifying data available. Someone Will Contact You Regarding These Home Health Referrals No home referrals have been ordered for you. No one will call you. Allergies Haldol (Tongue swelling) Oranges (Tongue swelling, Difficulty breathing) penicillin (Hives) Medications Please ask your primary doctor or pharmacist before taking any other medication not listed, including over the counter drugs, herbal medications, vitamins and or supplements as they may interact withyour home medications. What How Much When Why Instructions Last Dose Unchanged calcium-vitamin D (Calcium Plus Vitamin D3 600 mg-12.5 mcg (500 intl units) oral capsule) 2 cap by mouth Once a day with food Unchanged ibuprofen (Motrin IB 200 mg oral tablet) 2 tab(s) by mouth Every 4 hours as needed for as needed for pain Unchanged LORazepam (LORazepam 1 mg oral tablet) 1 tab(s) by mouth Two (2) times a day Cancer related pain History of cervical cancer Unchanged metoclopramide (metoclopramide 5 mg oral tablet) 1 tab(s) by mouth Four (4) times daily-before meals and at bedtime as needed for nausea Duration: 15 Days Unchanged ondansetron (ondansetron 4 mg oral tablet) 1 tab(s) by mouth Every 6 hours as needed for Nausea/Vomiting Duration: 15 Days Unchanged oxyCODONE (oxyCODONE 15 mg oral tablet ( IMMEDIATE release )) 1 tab(s) by mouth Every 6 hours as needed for as needed for pain Cervical cancer Unchanged oxyCODONE (OxyContin 10 mg oral tablet, extended release) 1 tab(s) by mouth Every 12 hours Cervical ca Unchanged pantoprazole (pantoprazole 40 mg oral enteric coated tablet) 1 tab(s) by mouth Once a day before a meal Please take this list to your next doctor s visit. Bring all medications you take, including over the counter medications, herbals and other supplements with you to your doctor s visit. Patients and families are reminded to discard old lists and to update any records with all medication providers or retail pharmacies. Education Materials SAVANNAH Nephrostomy/Nephroureteral Tube Exchange Discharge Instructions Interventional Radiology [facility] [address] [place] [address] The procedure that you had done today is called a nephrostomy tube exchange. This is a procedure toreplace a pre-existing tube that drains the urine from the kidney in order to prevent pain, infection and kidney damage. This should occur every 6-12 weeks, depending on your physician's orders and personal condition. Your urine may be blood tinged, in the bag and from regular urination, for up to 48 hours. If you had a nephroureteral tube exchange today, then this procedure is to replace a pre-existing tube that goes from your back into the kidney and down the ureter to the bladder. This tube may be either capped or have a dependent bag attached like a nephrostomy tube. Please follow these instructions: DIET: Resume previous diet as tolerated ACTIVITY: Wear loose, comfortable clothing. Make sure your tube is secure at all times. Avoid tugging at the tube. PAIN CONTROL: Mild back discomfort on the side of the tube placement may occur for the first 24 hours. You may experience the feeling of the need to urinate. Wxzs-jev-[id number] pain medication should be used for pain or discomfort. Please check with the physician who sent you for this procedure for their specific recommendations. If your pain is not relieved or becomes more severe, notify the physician who sent you for this procedure. IF YOU RECEIVED CONSCIOUS SEDATION (IV SEDATION) & YOU ARE DISCHARGED THE SAME DAY You must have someone drive you home when you leave the hospital. For 24 hours after your procedure, do not do anything where you need to make important decisions. This includes operating machinery, signing important documents, etc. MEDICATION: Please resume on . NEPHROSTOMY CARE: Wash your hands well with soap and water before and after caring for your nephrostomy tube. Keep the skin around the nephrostomy tube dry. If the area does get wet, dry the skin completely. Change the dressing every week, or as needed if it is leaking or the dressing becomes saturated. Keep all the ports of the tube and drainage bag as clean as possible to prevent infection. Empty the drainage bags often via the spout at the bottom of the bag. Turn clockwise. Avoid overfilling. Always empty the bag before bed. Some patients will be required to flush their tubes, please check with ordering physician for instructions and supplies. (You do not need to do this unless specifically instructed by your healthcare provider). TUBE PROBLEMS Call Interventional Radiology IMMEDIATELY if the tube falls out. Call Interventional Radiology if you notice decreased or no urine output or if urine leaks from thedressing site from tube. Call your Urologist if any abnormal bleeding, foul odor or drainage, redness, swelling, worsening pain, or fever above 102F. If the catheter falls out, it can be replaced by the doctor ideally within 24 hours. Do not attemptto put the tube back in yourself. BATHING Avoid swimming. You may shower with the nephrostomy bag attached to the skin, sit in a shallow bath, or sponge bathe while the catheter is in place. Be sure to keep the water level below the dressingwhen tub bathing. Please change your dressing if it gets wet. SPECIFIC INSTRUCTIONS TO CHANGE NEPHROSTOMY TUBE DRESSING Supplies needed: Soap and water Clean, dry towel Nephrostomy bag Clean adhesive dressing Gauze Because the nephrostomy tube is located on your back, you will need someone to assist you in changing the dressing. Wash hands well Remove the old dressing, peeling the edges slowly from skin. As the dressing is pulled away from the skin, support the nephrostomy tube with your free hand to prevent placing tension on the tube and accidentally pulling it out. Wash the area around the nephrostomy tube with soap and water. Gently pat the area dry. Need 2 layers of gauze. One layer in between the skin and the tube. Second layer of gauze goes overthe tube. Then place the clean adhesive dressing over the gauze. Supplies may be obtained at: [facility] [address] [facility] [address] [facility] Any questions or concerns, please contact your physician or Interventional Radiology at [phone] from 8-4:30pm Friday-Friday. If you do not have a follow up appointment scheduled at the time of discharge, please call Interventional Radiology at the number listed above. Additional Information VACCINATE! IT SAVES LIVES! Members of the community who have not yet received the COVID-19 vaccine and would like to receive it can visit one of [facility] vaccine clinics. There are many vaccine clinic locations within the [facility]. For locations and available times, please visit [email or web address].[place].gov/. It is important to note that some COVID mobile vaccine clinics are held outdoors and may be canceled in rainy or stormy conditions. To learn more about pediatric vaccinations (ages 5-11), we invite you to visit the [facility] webpage. https://www.[facility].org/pages/0909-Yxivu-Mbhnyeuxatf-Vhagkztkcq-Aqnhk-Jjd stions.htmlTo learn more about the COVID-19 vaccine, we invite you to visit the CDC website for a list of frequently asked questions.https://www.cdc.gov/coronavirus/2019-ncov/vaccines/faq.html [facility] Patient Portal Access Instructions: Stay connected with your healthcare team and access your personal medical information anytime with the [facility] Patient Portal. Please follow the directions below to create your [facility] account: 1.Access the email account you provided upon registration to the hospital/physician office.2.Look for an invitation email from [facility].3.Open the email and access the invitation link: [facility]Invitation to [facility].4.Fill in the required quintero to create your account. To access your account, visit [email or web address]. Click the blue button labeled Access Patient Portal and then log in with the username and password that you created in the steps above. You will be able to view your test results, lab results, a summary of your visits, upcoming appointments and more. There is also a convenient messaging option where you can send secure messages to your p rovider. In addition, you will have the ability to download any documents or summaries to your computer and/or send the information securely to a physician. Remember that your healthcare information is confidential, so carefully consider who you will allowto register on the [facility] [employer] Patient Portal for access to your information. You can also access the [facility] [employer] [facility] [employer] Patient Portal on the [facility] joya. Simply click on Patient Portal and then log into your account. If you would like to receive a full copy of your medical records, please contact the [facility] Medical Records Department by calling [phone], Friday through Friday between 8 a.m. and 4:30 p.m. HOW TO SAFELY DISPOSE OF PRESCRIPTION MEDICATIONS Please use one of the following methods to safely dispose of your unused medications. 1.Use a drug disposal kit: the drug disposal pouch allows you to safely discard your old and unuseddrugs. Ask your nurse to give you one when you are discharged.2.Visit a local take-back location: Many local pharmacies and police departments have programs that collect old and unwanted prescriptiondrugs. Call your local pharmacy or go to http://bit.ly/0H9Tg1j to find one close to you.3.Make use of household items: Use cat litter or old coffee grounds to dispose medications if other options arenot available. Mix your drugs with these household products, seal them in an airtight container andthrow it into the garbage. Call [facility]: [phone] to be sure your drugs can be disposed of in this way. Some medicines may require a different approach.4.Never flush your medications down the toilet. IF YOU HAVE BEEN PRESCRIBED AN OPIOID FOR PAIN If you have been prescribed an opioid (such as hydrocodone, oxycodone or morphine), it is critical to understand the possible side effects and risks of opioid pain medications. Even when taken as directed, opioids can have several side effects including: Tolerance, meaning you might need to take more of a medication for the same pain relief. Nausea, vomiting and/or constipation. Sleepiness, dizziness, dry mouth, confusion, depression or itching. Physical dependence, meaning you have withdrawal symptoms when a medication is stopped, can develop within a few days. KNOW YOUR RESPONSIBILITIES It is important to know exactly how much and how often to take the opioid pain medications you are prescribed. Never take opioids in higher amounts or more often than prescribed. Do not combine opioids with alcohol or other drugs that cause drowsiness, such as benzodiazepines, also known as benzos, including diazepam and alprazolam, muscle relaxants or sleep aids. Never sell or share prescription opioids. This is illegal. Store opioids in a secure place and out of reach of others (including children, family, friends and visitors). The last page of this document has been signed and retained as a CHART COPY. Signatures Patient Education Materials Radiology- Nephrostomy/Nephroureteral Tube Exchange 12/26/2022(CUSTOM) Medication Leaflets My discharge plan and instructions have been reviewed and explained to me and I,LALY NAVAS understand my current condition and have read and understand these discharge instructions. I have received a written copy of the plan/instructions. If I have questions, I am aware that I should contact my doctor. 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 Name: LALY NAVAS Austen /Sex: 1990 Female Med Rec #: [id number] Physician: Financial #: [id number] Pt. Type: S Room/Bed: [facility]/A Admit/Disch: 12/03/23 09:22:31 - Institution: Allergies identified in patient's electronic medical record at time of printing on 12/03/23 Entry 1 Entry 2 Entry 3 Substance Haldol Oranges penicillin Reaction Type Allergy Allergy Allergy Last Modified By: Fany Ruelas LPN, Kimberly V. RN Holt, Kimberly V. RN 11/19/23 09:39:23 07/21/23 10:11:02 07/21/23 10:10:45 Case Attendance- IR Entry 1 Entry 2 Entry 3 Case Attendee RITA YEH MD, Jacque M. Herrick, Systems Integrator Leatha Role Performed Primary Surgeon Scrub Technologist Circulating Technologist Details Time In 12/03/23 11:18:00 12/03/23 11:18:00 12/03/23 11:18:00 Time Out 12/03/23 11:53:00 12/03/23 11:53:00 12/03/23 11:53:00 Procedure/Preference IR Nephrostomy Exchange IR Nephrostomy Exchange IR Nephrostomy Exchange Card (SN) (SN) (SN) Last Modified By: Lexi Marcano RN, Caitlin C RN Rodriguez, Caitlin C RN 12/03/23 11:48:19 12/03/23 11:48:19 12/03/23 11:48:19 Entry 4 Case Attendee Lexi Marcano RN Role Performed Western Philosophy Professor 1 Details Time In 12/03/23 11:18:00 Time Out 12/03/23 11:53:00 Procedure/Preference IR Nephrostomy Exchange Card (SN) Last Modified By: Lexi Marcano RN 12/03/23 11:48:19 Radiology Procedures- IR Entry 1 Procedure/Preference IR Nephrostomy Exchange Actual Procedure IR NEPH TUBE CHANGE Card (SN) Primary Procedure Yes Primary Surgeon RITA YEH MD Anesthesia/Sedation MAC Type Additional Procedure Times Start 12/03/23 11:35:00 Stop 12/03/23 11:45:00 Specialty Service SN Radiology Procedure EBL 0 mL Last Modified By: Lexi Marcano RN 12/03/23 11:48:34 Radiology Procedure Details - IR Entry 1 Radiology Sedation Case Times Sedation Total Time 0 Radiology - Fluid/Drainage Radiology Contrast Contrast Used? Yes Dose 10 mL Medication OMNIPAQUE 300 50ML 10/PK Y-530 [facility] [id number] Radiology Flouroscopy Fluoroscopy Used? Yes Fluoro Dose (mGy) 5.39 Fluoro Time 1.6 min Radiology Local Local Used? Yes Local Type: lidocaine 2% Local Dose 4cc Radiology Procedure Site Site/Location left flank Site Condition No complications Dressing Type Bioclusive 4 X 5, Gauze Technologist Notes 10f x 35cm m-drain sponge 4 X 4 lot#[id number] Last Modified By: Lexi Marcano RN 12/03/23 11:45:24 General Case Data - IR Entry 1 Case Information Room IR 17 Case Level IR Level 3 Wound Class None Specialty SN Radiology Procedure ASA Class 3 Diagnosis Preop Diagnosis 6 week change Postop Same As Preop Yes Postop Diagnosis 6 week change Last Modified By: Lexi Marcano RN 12/03/23 11:33:33 Procedure Case Times- IR Entry 1 Patient In Procedure Patient In OR 12/03/23 11:18:00 Patient Out of OR 12/03/23 11:53:00 Procedure Start/Stop Procedure Start Time 12/03/23 11:35:00 Procedure Stop Time 12/03/23 11:45:00 Last Modified By: Lexi Marcano RN 12/03/23 11:48:17 Immediate Post Procedure Note - IR Entry 1 Immediate Post Yes Procedure Note displayed for Physician to review Closure Technique Closure Technique Other than Primary Last Modified By: Lexi Marcano RN 12/03/23 11:32:32 Immediate Post Procedure Note - IR Signed By: RITA YEH MD 12/03/23 11:46 Allergy Information- IR Entry 1 Allergies Reviewed? Yes Allergies Reviewed Patient With Last Modified By: Lexi Marcano RN 12/03/23 11:29:37 Radiology Protocols/Time Out- IR Entry 1 Preprocedure Clinician Verifies Correct patient ID When Clinically Confirmation of correct using name & date Indicated side(s) and site(s), or MRN, Accurate Correct diagnostic and procedure, complete radiology tests Informed Consent, H & P available, Required update immediately blood products, prior to procedure, if implants, devices applicable and/or special equipment available OR/Procedure Room/Bedside Time 12/03/23 11:35:00 Clinician Verifies Correct patient identity including EMR & records using name and date or medical record number, Accurate procedure consent form, Correct patient position, Necessary equipment is available, Anticipated non-routine events with surgical team (case duration, estimated blood loss, patient specific concerns)., Parada patient factors for recovery and management identified with surgical team. When Applicable Confirmation correct Team Members RITA YEH MD, side and site marked, Present for Time Out Karolina Prater, Relevant images and Sam Granger results are properly L, Lexi Marcano labeled and RN appropriately displayed, Alcohol based prep dry, Double verification of sterility indicators complete Instrument Sterility Procedure IR Nephrostomy Exchange (SN) Last Modified By: Lexi Marcano RN 12/03/23 11:36:41 Patient Positioning- IR Entry 1 Procedure IR Nephrostomy Exchange Body Position OP Prone (SN) Feet Uncrossed? Yes Pressure Points Yes Checked Last Modified By: Lexi Marcano RN 12/03/23 11:32:26 Radiology Procedure Plan - IR Entry 1 Radiology - Nursing Care Plan Outcome Statement The patient Outcome Statement The patient receives demonstrates knowledge Cont. appropriate of the expected medication(s), safely responses to the administered during the operative/invasive perioperative/invasive procedure., The period., The patient is patient's value system, free from signs and lifestyle, ethnicity, symptoms of injury and culture are caused by extraneous considered, respected, objects (equipment, and incorporated in the instrumentation, perioperative plan of sponges, or sharps)., care., The patient is The patient is free free from signs and from signs and symptoms symptoms of infection., of electrical injury. The patient is free from signs and symptoms of injury related to positioning. Radiology - Action Plan Outcomes Met? Yes Mottler Operator Lexi Marcano RN Completing Procedure Plan Last Modified By: Lexi Marcano RN 12/03/23 11:33:21 Case Comments Finalized By: Lexi Marcano RN Document Signatures Signed By: Lexi Marcano RN 12/03/23 11:48 Lexi Marcano RN 12/03/23 11:48 [facility] [id number] Anesthesiology Consult note Patient: LALY NAVAS Age: 32 years Sex: Female : 1990 Associated Diagnoses: None Author: DAVID SMITH MD Preoperative Information > 8 hours Anesthesia history Patient's history: negative. Family's history: negative. Health Status Allergies: Allergic Reactions (Selected) Severity Not Documented Haldol- Tongue swelling. Oranges- Tongue swelling and difficulty breathing. Penicillin- Hives., Allergies (3) ActiveReaction HaldolTongue swelling OrangesTongue swelling penicillinHives Current medications: (Selected) Inpatient Medications Ordered NS 1,000 mL: 20 mL/hr, Intravenous NS 1,000 mL: 20 mL/hr, Intravenous lidocaine 1% preservative-free injectable solution: 2.5 mg, 0.25 mL, Intradermal, prep pharm lidocaine 1% preservative-free injectable solution: 2.5 mg, 0.25 mL, Intradermal, prep pharm Prescriptions Prescribed Calcium Plus Vitamin D3 600 mg-12.5 mcg (500 intl units) oral capsule: 2 cap(s), Oral, qDay, with food, 120 EA, 0 Refill(s) LORazepam 1 mg oral tablet: 1 mg, 1 tab(s), Oral, BID, 60 tab(s), 0 Refill(s) OxyContin 10 mg oral tablet, extended release: 10 mg, 1 tab(s), Oral, q12h, 60 tab(s), 0 Refill(s) metoclopramide 5 mg oral tablet: 5 mg, 1 tab(s), Oral, achs, for 15 day(s), PRN: nausea, 60 tab(s),1 Refill(s) ondansetron 4 mg oral tablet: 4 mg, 1 tab(s), Oral, q6h, for 15 day(s), PRN: Nausea/Vomiting, 60 tab(s), 4 Refill(s) oxyCODONE 15 mg oral tablet ( IMMEDIATE release ): 15 mg, 1 tab(s), Oral, q6hr, PRN: as needed for pain, 120 tab(s), 0 Refill(s) pantoprazole 40 mg oral enteric coated tablet: 40 mg, 1 tab(s), Oral, qDayAC, 30 tab(s), 1 Refill(s) Documented Medications Documented Motrin IB 200 mg oral tablet: 400 mg, 2 tab(s), Oral, q4h, PRN: as needed for pain, 120 tab(s), 0 Refill(s), Medications (1) Active Scheduled: (0) Continuous: (1) NS (0.9% nacl) 1,000 mL 1,000 mL, Intravenous, 20 mL/hr PRN: (0) Problem list: Medical Anxiety / SNOMED CT 56417798 / Confirmed Asthma / SNOMED CT 495171570 / Confirmed Decreased appetite / SNOMED CT 986774205 / Confirmed Dehydration / SNOMED CT 95645764 / Confirmed Port-A-Cath in place / SNOMED CT 3562280833 / Confirmed Bilateral flank pain / SNOMED CT 086992594 / Confirmed History of chemotherapy / SNOMED CT 9799067535 / Confirmed Hx of cervical cancer / SNOMED CT 5221706085 / Confirmed History of radiation therapy / SNOMED CT 0764967726 / Confirmed Hydronephrosis, left / SNOMED CT 55326481 / Confirmed Acute kidney injury / SNOMED CT 34610876 / Confirmed Left flank pain / SNOMED CT 031108811 / Confirmed Cervical cancer / SNOMED CT 422002356 / Confirmed Moderate protein-calorie malnutrition / SNOMED CT 404621231 / Confirmed Nausea and vomiting / SNOMED CT 50793078 / Confirmed Cancer related pain / SNOMED CT 6940921019 / Confirmed DVT prophylaxis / SNOMED CT 057116632 / Confirmed Palliative care encounter / SNOMED CT 972390309 / Confirmed Premature menopause / SNOMED CT 0772591340 / Confirmed Pyelonephritis / SNOMED CT 28276069 / Confirmed Nephrostomy status / SNOMED CT 452386405 / Confirmed Complicated UTI (urinary tract infection) / SNOMED CT 028413718 / Confirmed Obstructive uropathy / SNOMED CT 58896385 / Confirmed, Active Problems (28) Acute kidney injury Anxiety Asthma Bilateral flank pain Bradycardia Cancer related pain Cervical cancer Complicated UTI (urinary tract infection) Contact lenses COVID-19 Decreased appetite Dehydration DVT prophylaxis Fall Glasses History of chemotherapy History of radiation therapy Hx of cervical cancer Hydronephrosis, left Left flank pain Moderate protein-calorie malnutrition Nausea and vomiting Nephrostomy status Obstructive uropathy Palliative care encounter Port-A-Cath in place Premature menopause Pyelonephritis Histories Past Medical History: Resolved ESBL (extended spectrum beta-lactamase) producing bacteria infection (6142370180): Onset on 02/23/2023 at 32 years. Resolved on 05/07/2023 at 32 years. ESBL (extended spectrum beta-lactamase) producing bacteria infection (7457471756): Onset on 08/09/2022 at 31 years. Resolved on 01/02/2023 at 32 years. Comments: 01/02/2023 SUMEET 10:02 JAMAL Haynes Removed ESBL disease alert from 08/2022 per infection control protocol on 01/02/23. Mass of cervix (384401474): Resolved. Chronic kidney disease, stage 3 (moderate) (0409102692): Resolved. Hydronephrosis of left kidney (79736812): Resolved. Cervicitis (991329660): Resolved. Encounter for antineoplastic chemotherapy (019774086): Resolved. Tinnitus (112833111): Resolved. History of COVID-19 (0232591911): Resolved. Procedure history: Nephrostomy tube (793500596) on 10/05/2023 at 32 Years. 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 Comments: 06/13/2020 10:09 JAMAL Guaman left Nephrostomy with tube drainage (25539585) on 01/10/2021 at 30 Years. Cannulation of Portacath (204364970) in 2020 at 30 Years. Comments: 06/13/2020 10:09 JAMAL Guaman right JJ stent ([id number]) on 11/15/2020 at 29 Years. Radiation (080529308) in the month of 06/2020 at 29 Years. Comments: 06/26/2020 6:12 JAMAL Braswell via tandems and oviod X2 Cervical biopsy (87750649) in 2019 at 29 Years. Comments: 04/12/2020 18:25 Eri Conte RN pt states she had a cervical biopsy done on 04/07/2020 at [facility] for a cervical mass Tumor cells, benign (24783599) in 2001 at 11 Years. 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 done at [facility] in [place] Social History Social & Psychosocial Habits Alcohol 12/03/2023 Assessment: Denies Alcohol Use 12/03/2023 Use: Past Type: Beer Frequency: 1-2 times per week Substance Abuse 12/03/2023 Use: Never 12/03/2023 Assessment: Denies Substance Abuse Tobacco 12/03/2023 Tobacco Use: Former smoker, quit more Exposure to Tobacco Smoke Lives in non-smoking home Started at age: 19 Years Stopped at age: 32 Years Smokeless tobacco use: Never 12/03/2023 Tobacco Use: Former smoker, quit more Type: Cigarettes Tobacco use per day: 10 Number of years: 10 Started at age: 19 Years Stopped at age: 32 Years Previous treatment: None Ready to change: Yes Home/Environment 12/03/2023 Assessment: No Risk 12/03/2023 Domestic Concerns None Living situation: Home/Independent Safe place to go: Yes Lives In Mobile home Current Home Treatments None Special Services and Community Resources None Financial concerns: No Marital Status of Patient if Patient Independent Adult: Unmarried Nutrition/Health 12/03/2023 Type of diet: Regular Appetite Fair Eating Difficulties None Caffeine intake amount: 1 can pop per day 12/03/2023isk Assessment: No Risk 12/03/2023 Type of diet: Regular Appetite Poor Sexual 12/03/2023 Sexually active: Yes First active at age: 18 Years Current partners: 1 Number of lifetime partners: 7 Self described orientation: Straight or heterosexual Other contraceptive use: condoms History of sexual abuse: No What is your current gender identity? (Check all that apply) Identifies as female . Physical Examination Measurements from flowsheet : Measurements 12/03/2023 9:41 EST Height 167.6 cm Height in inches 66 inch(es) Admission Weight 58.6 kg Weight Lbs 128.9 lb [place] Body Weight 59.26 kg Admission Body Mass Index 20.86 m2 General: Alert and oriented, Mild distress. Airway: Mallampati classification: II (soft palate, fauces, uvula visible). Head: Normocephalic, Atraumatic. Dentition Evaluation: Denies loose/chipped teeth, chipped molar. Respiratory: Respirations are non-labored. Cardiovascular: Normal rate. Heart Sounds: Normal. Musculoskeletal Normal range of motion. Neurologic: Alert, Oriented. Review / Management Documentation reviewed: Current records, Reviewed prior records. Assessment and Plan [employer] Society of Anesthesiologists (ASA) physical status classification: Class III. Anesthetic Preoperative Plan Anesthetic technique: MAC. Induction: intravenously. Maintenance airway: Mask. Postoperative pain management: Per surgeon. Risks discussed: nausea, vomiting, headache, sore throat, dental injury, hypotension, allergic reaction, serious complications. Informed consent: signed by patient. h/o cervical cancer, chemo and radiation, DVT, hydronephrosis, chronic pain, CKD, ESBL Digitally Signed by DAVID SMITH MD on 12/03/2023 11:13 AM [facility] [id number] History and physical note IR PREPROCEDURE H&P UPDATE IF A HISTORY AND PHYSICAL EXAMINATION HAS BEEN COMPLETED PRIOR TO ADMISSION TO THE HOSPITAL, AN UPDATED EXAMINATION MUST BE COMPLETED AND DOCUMENTED WITHIN 24 HOURS AFTER ADMISSION OR REGISTRATION BUT BEFORE A SURGICAL PROCEDURE. I have examined the patient, reviewed the H&P, and there are no changes unless noted below: _ The most recent H&P/Office Note was performed on 11/19/2023 and can be found in the [place] [facility] Records ([place]). Tadeo Leija PA-C Interventional Radiology Pager: [phone] IR dept: x [phone] [facility] on [facility] Digitally Signed by TADEO LEIJA PA-C on 12/03/2023 10:44 AM [facility] [id number] Hospital Discharge instructions Patient Education 10/22/2023 16:36:58 1-SDS Discharge Instructions Template (08/2018)(CUSTOM) [facility] SAME DAY SURGERY DISCHARGE INSTRUCTIONS PLEASE FOLLOW THE INSTRUCTIONS BELOW MARKED WITH AN X: _x__ Regular Diet: Start with clear liquids, then soup and crackers and gradually add other foods. _x__ Drink extra fluids. ___ Special Diet Instructions: ___ ACTIVITY: _x__ Avoid stress to suture line. Since you have had an anesthetic, it would be advisable not to drive, drink alcohol, or make major decisions over the next 24 hours. You may require more rest tonight and tomorrow. ___ May resume regular activity as tolerated. ___ Restrict activity as follows: ___ ___ Walk Only ___ ___ Do not go up and down stairs. ___ Do not ride in car until ___ ___ Do not drive car. ___ Do not have sexual intercourse. ___ No heavy lifting, pushing or straining. _x__ Other: _Follow all instructions provided to you by Dr. Lu. Call office with any questions or concerns. __ BATHING/SHOWERING: ___ Sponge bathe until office visit. ___ Sitting in tub of warm water may relieve discomfort. ___ May tub bathe _x__ May shower ___ On day after surgery sit in tub of warm water to soak off dressing. DRESSING: ___ Keep operative area dry and clean for ___ _x__ Check the operative area for signs of bleeding. Apply pressure to the bleeding site if necessary and call your physician. ___ Change dressing as necessary using sterile dressing material or bandaid. ___ Reinforce dressing as necessary. ___ Change and care for wound as follows: ___ ___ Wear bra for ___ days following breast surgery for comfort. ___ Change drip pad as needed. ___ Wear scrotal support for comfort. WATCH FOR SIGNS OF INFECTION: (Usually appears 36-48 hours after surgery) Increased temperature (101 degrees Fahrenheit or higher) Redness or swelling Increased pain Foul odor or drainage. If you have any questions, please call your doctor at the number listed on your follow up instructions. Follow all instructions given to you by your physician. Please complete and return the survey you will be receiving in the mail to help us better serve our patients. Form: 1522 ([id number]) R: 02/0910/22/2023 16:36:17 Radiology- Nephrostomy/Nephroureteral Tube Exchange 12/26/2022(CUSTOM) VANESSA Nephrostomy/Nephroureteral Tube Exchange Discharge Instructions Interventional Radiology [facility] [address] [place] [address] The procedure that you had done today is called a nephrostomy tube exchange. This is a procedure toreplace a pre-existing tube that drains the urine from the kidney in order to prevent pain, infection and kidney damage. This should occur every 6-12 weeks, depending on your physician's orders and personal condition. Your urine may be blood tinged, in the bag and from regular urination, for up to 48 hours. If you had a nephroureteral tube exchange today, then this procedure is to replace a pre-existing tube that goes from your back into the kidney and down the ureter to the bladder. This tube may be either capped or have a dependent bag attached like a nephrostomy tube. Please follow these instructions: DIET: Resume previous diet as tolerated ACTIVITY: Wear loose, comfortable clothing. Make sure your tube is secure at all times. Avoid tugging at the tube. PAIN CONTROL: Mild back discomfort on the side of the tube placement may occur for the first 24 hours. You may experience the feeling of the need to urinate. Kgla-ojp-pyrnnke pain medication should be used for pain or discomfort. Please check with the physician who sent you for this procedure for their specific recommendations. If your pain is not relieved or becomes more severe, notify the physician who sent you for this procedure. IF YOU RECEIVED CONSCIOUS SEDATION (IV SEDATION) & YOU ARE DISCHARGED THE SAME DAY You must have someone drive you home when you leave the hospital. For 24 hours after your procedure, do not do anything where you need to make important decisions. This includes operating machinery, signing important documents, etc. MEDICATION: Please resume on . NEPHROSTOMY CARE: Wash your hands well with soap and water before and after caring for your nephrostomy tube. Keep the skin around the nephrostomy tube dry. If the area does get wet, dry the skin completely. Change the dressing every week, or as needed if it is leaking or the dressing becomes saturated. Keep all the ports of the tube and drainage bag as clean as possible to prevent infection. Empty the drainage bags often via the spout at the bottom of the bag. Turn clockwise. Avoid overfilling. Always empty the bag before bed. Some patients will be required to flush their tubes, please check with ordering physician for instructions and supplies. (You do not need to do this unless specifically instructed by your healthcare provider). TUBE PROBLEMS Call Interventional Radiology IMMEDIATELY if the tube falls out. Call Interventional Radiology if you notice decreased or no urine output or if urine leaks from thedressing site from tube. Call your Urologist if any abnormal bleeding, foul odor or drainage, redness, swelling, worsening pain, or fever above 102F. If the catheter falls out, it can be replaced by the doctor ideally within 24 hours. Do not attemptto put the tube back in yourself. BATHING Avoid swimming. You may shower with the nephrostomy bag attached to the skin, sit in a shallow bath, or sponge bathe while the catheter is in place. Be sure to keep the water level below the dressingwhen tub bathing. Please change your dressing if it gets wet. SPECIFIC INSTRUCTIONS TO CHANGE NEPHROSTOMY TUBE DRESSING Supplies needed: Soap and water Clean, dry towel Nephrostomy bag Clean adhesive dressing Gauze Because the nephrostomy tube is located on your back, you will need someone to assist you in changing the dressing. Wash hands well Remove the old dressing, peeling the edges slowly from skin. As the dressing is pulled away from the skin, support the nephrostomy tube with your free hand to prevent placing tension on the tube and accidentally pulling it out. Wash the area around the nephrostomy tube with soap and water. Gently pat the area dry. Need 2 layers of gauze. One layer in between the skin and the tube. Second layer of gauze goes overthe tube. Then place the clean adhesive dressing over the gauze. Supplies may be obtained at: [facility] [address] [facility] [address] [facility] Any questions or concerns, please contact your physician or Interventional Radiology at [phone] from 8-4:30pm Friday-Friday. If you do not have a follow up appointment scheduled at the time of discharge, please call Interventional Radiology at the number listed above. Follow Up Care 10/09/2023 15:32:25 With: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 Address: [address] [place] [address] [place] [address]- [phone] When: Unknown Comments:Follow-up as scheduled [facility] 12-20-2023 Note* Cristina Simons RN: SIGN, AUTHOR, SIGN, AUTHOR, PERFORM Event Display: IR Procedure Record Authored Date: [id number] IR Procedure Record Summary Primary Physician: VIRAL MASON MD, Ph.D Finalized Date/Time: 10/22/23 15:04:59 Pt. Name: LALY NAVAS Austen /Sex: 1990 Female Med Rec #: [id number] Physician: Financial #: [id number] Pt. Type: S Room/Bed: [facility]/A Admit/Disch: 10/22/23 09:10:31 - Institution: Allergies identified in patient's electronic medical record at time of printing on 10/22/23 Entry 1 Entry 2 Substance Oranges penicillin Reaction Type Allergy Allergy Last Modified By: Shoshana Renteria RN, Kimberly V. RN 07/21/23 10:11:02 07/21/23 10:10:45 Case Attendance- IR Entry 1 Entry 2 Entry 3 Case Attendee VIRAL MASON MD, Ph.D Cristina Simons RN, Rad Tech Kathy A Role Performed Primary Surgeon Western Philosophy Professor 1 Scrub Technologist Details Time In 10/22/23 14:47:00 10/22/23 14:31:00 10/22/23 14:31:00 Time Out 10/22/23 14:54:00 10/22/23 15:02:00 10/22/23 15:02:00 Procedure/Preference IR Nephrostomy Exchange IR Nephrostomy Exchange IR Nephrostomy Exchange Card (SN) (SN) (SN) Last Modified By: Cristina Simons RN, Tracie N RN Aller, Tracie N RN 10/22/23 14:56:59 10/22/23 14:56:59 10/22/23 14:56:59 Entry 4 Entry 5 Case Attendee Karolina Prater MATTHEW J LITIGATION ATTORNEY ASSOCIATE-SCALEMAKER Role Performed Circulating Technologist SCALEMAKER Details Time In 10/22/23 14:31:00 10/22/23 14:31:00 Time Out 10/22/23 15:02:00 10/22/23 15:02:00 Procedure/Preference IR Nephrostomy Exchange IR Nephrostomy Exchange Card (SN) (SN) Last Modified By: Cristina Simons RN, Tracie N RN 10/22/23 14:56:59 10/22/23 14:56:59 Radiology Procedures- IR Entry 1 Procedure/Preference IR Nephrostomy Exchange Actual Procedure IR NEPH TUBE CHANGE Card (SN) Primary Procedure Yes Primary Surgeon VIRAL MASON MD, Ph.D Anesthesia/Sedation General, Local Type Additional Procedure Times Start 10/22/23 14:47:00 Stop 10/22/23 14:54:00 Specialty Service SN Radiology Procedure EBL 3 mL Last Modified By: Cristina Simons RN 10/22/23 14:56:05 Radiology Procedure Details - IR Entry 1 Radiology Sedation Case Times Sedation Total Time 0 minutes Radiology - Fluid/Drainage Radiology Contrast Contrast Used? Yes Dose 10 mL Medication OMNIPAQUE 300 50ML 10/PK Y-530 [facility] [id number] Radiology Flouroscopy Fluoroscopy Used? Yes Fluoro Dose (mGy) 12 Fluoro Time 0.9 minutes Radiology Local Local Used? Yes Local Type: lidocaine Local Dose 4 mL Radiology Procedure Site Site/Location Left lower back Site Condition No complications Suture 0 Prolene Dressing Type Gauze sponge 4 X 4, Transparent Last Modified By: Cristina Simons RN 10/22/23 14:56:38 General Case Data - IR Entry 1 Case Information Room IR 18 Case Level IR Level 3 Wound Class None Specialty SN Radiology Procedure ASA Class 3 Diagnosis Preop Diagnosis Neph tube change Postop Same As Preop Yes Postop Diagnosis Neph tube change Last Modified By: Cristina Simons RN 10/22/23 14:41:08 Procedure Case Times- IR Entry 1 Patient In Procedure Patient In OR 10/22/23 14:31:00 Patient Out of OR 10/22/23 15:02:00 Procedure Start/Stop Procedure Start Time 10/22/23 14:47:00 Procedure Stop Time 10/22/23 14:54:00 Last Modified By: Cristina Simons RN 10/22/23 14:56:57 Immediate Post Procedure Note - IR Entry 1 Immediate Post Yes Procedure Note displayed for Physician to review Closure Technique Closure Technique Other than Primary Last Modified By: Cristina Simons RN 10/22/23 14:40:30 Immediate Post Procedure Note - IR Signed By: VIRAL MASON MD, Ph.D 10/22/23 14:55 Allergy Information- IR Entry 1 Allergies Reviewed? Yes Allergies Reviewed Patient With Last Modified By: Karolina Prater 10/22/23 14:35:07 Radiology Protocols/Time Out- IR Entry 1 Preprocedure Clinician Verifies Correct patient ID When Clinically Confirmation of correct using name & date Indicated side(s) and site(s), or MRN, Accurate Correct diagnostic and procedure, complete radiology tests Informed Consent, H & P available, Required update immediately blood products, prior to procedure, if implants, devices applicable and/or special equipment available OR/Procedure Room/Bedside Time 10/22/23 14:47:00 Clinician Verifies Correct patient identity including EMR & records using name and date or medical record number, Accurate procedure consent form, Correct patient position, Necessary equipment is available, Anticipated non-routine events with surgical team (case duration, estimated blood loss, patient specific concerns)., Parada patient factors for recovery and management identified with surgical team. When Applicable Confirmation correct Team Members VIRAL MASON MD, side and site marked, Present for Time Out Ph.D, Cristina Simons Relevant images and Sandi BERRY Rad Tech results are properly Moi Brown Jacque labeled ELIANA Stern MATTHEW J appropriately LITIGATION ATTORNEY ASSOCIATE-SCALEMAKER displayed, Alcohol based prep dry, Double verification of sterility indicators complete Instrument Sterility Team Members Sam Junior Verifying Sterility Procedure IR Nephrostomy Exchange (SN) Last Modified By: Cristina Simons RN 10/22/23 14:47:59 Skin Prep- IR Entry 1 Procedure IR Nephrostomy Exchange (SN) Skin Prep Prep Area Back Side Left By Sam Junior Prep Agents Chloraprep Hair Removal Method N/A Last Modified By: Cristina Simons RN 10/22/23 14:47:53 Patient Positioning- IR Entry 1 Procedure IR Nephrostomy Exchange Body Position OP Prone (SN) Feet Uncrossed? Yes Pressure Points Yes Checked Last Modified By: Cristina Simons RN 10/22/23 14:40:26 Radiology Procedure Plan - IR Entry 1 Radiology - Nursing Care Plan Outcome Statement The patient Outcome Statement The patient receives demonstrates knowledge Cont. appropriate of the expected medication(s), safely responses to the administered during the operative/invasive perioperative/invasive procedure., The period., The patient is patient's value system, free from signs and lifestyle, ethnicity, symptoms of injury and culture are caused by extraneous considered, respected, objects (equipment, and incorporated in the instrumentation, perioperative plan of sponges, or sharps). care., The patient is free from signs and symptoms of infection. Radiology - Action Plan Outcomes Met? Yes Mottler Operator Cristina Simons RN Completing Procedure Plan Last Modified By: Cristina Simons RN 10/22/23 14:40:41 Case Comments <None> Finalized By: Cristina Simons RN Document Signatures Signed By: Cristina Simons RN 10/22/23 14:57 Cristina Simons RN 10/22/23 15:04 [facility] 12-20-2023 Summary of episode note Discharge Instructions Thank you for allowing [facility] to assist you with your healthcare needs. The following is importantdischarge information regarding your hospital visit. Your Care Team FLIP MARTIN MD What to do next Scheduled Follow-Up Appointments Appointment Type When With Where Contact InformationSO OV Follow Up 10/31/2023 10:00 AM BRITTNI COLEMAN [facility] [address] [place] [phone] PALL OV Follow Up 11/18/2023 09:30 AM OLE MCNEIL MD [facility] IR Nephrostomy Exchange 12/03/2023 11:00 AM EST IR Follow Up Appointments Follow Up with BRITTNI LU When Why: Follow-up as scheduled Where: [address] [place] [address] [place] [phone] The Following Activity and Diet Have Been Ordered for You No qualifying data available. No qualifying data available. The Following Equipment Has Been Ordered for You No qualifying data available. The Following Treatments Have Been Ordered for You Discharge Labs No qualifying data available. Discharge Radiology No qualifying data available. Other Therapies No qualifying data available. Post Acute Orders No qualifying data available. Someone Will Contact You Regarding These Home Health Referrals No home referrals have been ordered for you. No one will call you. Allergies Oranges (Tongue swelling, Difficulty breathing) penicillin (Hives) Medications Please ask your primary doctor or pharmacist before taking any other medication not listed, including over the counter drugs, herbal medications, vitamins and or supplements as they may interact withyour home medications. What How Much When Why Instructions Last Dose Unchanged calcium-vitamin D (Calcium Plus Vitamin D3 600 mg-12.5 mcg (500 intl units) oral capsule) 2 cap by mouth Once a day with food Unchanged LORazepam (LORazepam 1 mg oral tablet) 1 tab(s) by mouth Two (2) times a day Cancer related pain History of cervical cancer Unchanged ondansetron (ondansetron 4 mg oral tablet) 1 tab(s) by mouth Every 6 hours as needed for Nausea/Vomiting Duration: 15 Days Unchanged ondansetron (ondansetron 4 mg oral tablet) 1 tab(s) by mouth Every 6 hours as needed for Nausea/Vomiting Unchanged oxyCODONE (oxyCODONE 15 mg oral tablet ( IMMEDIATE release )) 1 tab(s) by mouth Every 6 hours Cervical cancer may fill on Unchanged oxyCODONE (OxyContin 15 mg oral tablet, extended release) 1 tab(s) by mouth Two (2) times a day Cancer related pain Cervical ca Please take this list to your next doctor s visit. Bring all medications you take, including over the counter medications, herbals and other supplements with you to your doctor s visit. Patients and families are reminded to discard old lists and to update any records with all medication providers or retail pharmacies. Education Materials [facility] SAME DAY SURGERY DISCHARGE INSTRUCTIONS PLEASE FOLLOW THE INSTRUCTIONS BELOW MARKED WITH AN X: _x__ Regular Diet: Start with clear liquids, then soup and crackers and gradually add other foods. _x__ Drink extra fluids. ___ Special Diet Instructions: ___ ACTIVITY: _x__ Avoid stress to suture line. Since you have had an anesthetic, it would be advisable not to drive, drink alcohol, or make major decisions over the next 24 hours. You may require more rest tonight and tomorrow. ___ May resume regular activity as tolerated. ___ Restrict activity as follows: ___ ___ Walk Only ___ ___ Do not go up and down stairs. ___ Do not ride in car until ___ ___ Do not drive car. ___ Do not have sexual intercourse. ___ No heavy lifting, pushing or straining. _x__ Other: _Follow all instructions provided to you by Dr. Lu. Call office with any questions or concerns. __ BATHING/SHOWERING: ___ Sponge bathe until office visit. ___ Sitting in tub of warm water may relieve discomfort. ___ May tub bathe _x__ May shower ___ On day after surgery sit in tub of warm water to soak off dressing. DRESSING: ___ Keep operative area dry and clean for ___ _x__ Check the operative area for signs of bleeding. Apply pressure to the bleeding site if necessary and call your physician. ___ Change dressing as necessary using sterile dressing material or bandaid. ___ Reinforce dressing as necessary. ___ Change and care for wound as follows: ___ ___ Wear bra for ___ days following breast surgery for comfort. ___ Change drip pad as needed. ___ Wear scrotal support for comfort. WATCH FOR SIGNS OF INFECTION: (Usually appears 36-48 hours after surgery) Increased temperature (101 degrees Fahrenheit or higher) Redness or swelling Increased pain Foul odor or drainage. If you have any questions, please call your doctor at the number listed on your follow up instructions. Follow all instructions given to you by your physician. Please complete and return the survey you will be receiving in the mail to help us better serve our patients. Form: 1522 ([id number]) R: 02/09 SAVANNAH Nephrostomy/Nephroureteral Tube Exchange Discharge Instructions Interventional Radiology [facility] [address] [place] [address] The procedure that you had done today is called a nephrostomy tube exchange. This is a procedure toreplace a pre-existing tube that drains the urine from the kidney in order to prevent pain, infection and kidney damage. This should occur every 6-12 weeks, depending on your physician's orders and personal condition. Your urine may be blood tinged, in the bag and from regular urination, for up to 48 hours. If you had a nephroureteral tube exchange today, then this procedure is to replace a pre-existing tube that goes from your back into the kidney and down the ureter to the bladder. This tube may be either capped or have a dependent bag attached like a nephrostomy tube. Please follow these instructions: DIET: Resume previous diet as tolerated ACTIVITY: Wear loose, comfortable clothing. Make sure your tube is secure at all times. Avoid tugging at the tube. PAIN CONTROL: Mild back discomfort on the side of the tube placement may occur for the first 24 hours. You may experience the feeling of the need to urinate. [id number] pain medication should be used for pain or discomfort. Please check with the physician who sent you for this procedure for their specific recommendations. If your pain is not relieved or becomes more severe, notify the physician who sent you for this procedure. IF YOU RECEIVED CONSCIOUS SEDATION (IV SEDATION) & YOU ARE DISCHARGED THE SAME DAY You must have someone drive you home when you leave the hospital. For 24 hours after your procedure, do not do anything where you need to make important decisions. This includes operating machinery, signing important documents, etc. MEDICATION: Please resume on . NEPHROSTOMY CARE: Wash your hands well with soap and water before and after caring for your nephrostomy tube. Keep the skin around the nephrostomy tube dry. If the area does get wet, dry the skin completely. Change the dressing every week, or as needed if it is leaking or the dressing becomes saturated. Keep all the ports of the tube and drainage bag as clean as possible to prevent infection. Empty the drainage bags often via the spout at the bottom of the bag. Turn clockwise. Avoid overfilling. Always empty the bag before bed. Some patients will be required to flush their tubes, please check with ordering physician for instructions and supplies. (You do not need to do this unless specifically instructed by your healthcare provider). TUBE PROBLEMS Call Interventional Radiology IMMEDIATELY if the tube falls out. Call Interventional Radiology if you notice decreased or no urine output or if urine leaks from thedressing site from tube. Call your Urologist if any abnormal bleeding, foul odor or drainage, redness, swelling, worsening pain, or fever above 102F. If the catheter falls out, it can be replaced by the doctor ideally within 24 hours. Do not attemptto put the tube back in yourself. BATHING Avoid swimming. You may shower with the nephrostomy bag attached to the skin, sit in a shallow bath, or sponge bathe while the catheter is in place. Be sure to keep the water level below the dressingwhen tub bathing. Please change your dressing if it gets wet. SPECIFIC INSTRUCTIONS TO CHANGE NEPHROSTOMY TUBE DRESSING Supplies needed: Soap and water Clean, dry towel Nephrostomy bag Clean adhesive dressing Gauze Because the nephrostomy tube is located on your back, you will need someone to assist you in changing the dressing. Wash hands well Remove the old dressing, peeling the edges slowly from skin. As the dressing is pulled away from the skin, support the nephrostomy tube with your free hand to prevent placing tension on the tube and accidentally pulling it out. Wash the area around the nephrostomy tube with soap and water. Gently pat the area dry. Need 2 layers of gauze. One layer in between the skin and the tube. Second layer of gauze goes overthe tube. Then place the clean adhesive dressing over the gauze. Supplies may be obtained at: [facility] [address] [facility] [address] [facility] Any questions or concerns, please contact your physician or Interventional Radiology at [phone] from 8-4:30pm Friday-Friday. If you do not have a follow up appointment scheduled at the time of discharge, please call Interventional Radiology at the number listed above. Additional Information VACCINATE! IT SAVES LIVES! Members of the community who have not yet received the COVID-19 vaccine and would like to receive it can visit one of [facility] vaccine clinics. There are many vaccine clinic locations within the [facility]. For locations and available times, please visit [email or web address].[place].gov/. It is important to note that some COVID mobile vaccine clinics are held outdoors and may be canceled in rainy or stormy conditions. To learn more about pediatric vaccinations (ages 5-11), we invite you to visit the [facility] webpage. https://www.[facility].org/pages/0247-Mdudm-Odfcogwbbaz-Dqjsjfycws-Afxtd-Cbz stions.htmlTo learn more about the COVID-19 vaccine, we invite you to visit the CDC website for a list of frequently asked questions.https://www.cdc.gov/coronavirus/2019-ncov/vaccines/faq.html [employer] Patient Portal Access Instructions: Stay connected with your healthcare team and access your personal medical information anytime with the [facility] Patient Portal. Please follow the directions below to create your [employer] account: 1.Access the email account you provided upon registration to the hospital/physician office.2.Look for an invitation email from [facility].3.Open the email and access the invitation link: AcceptInvitation to [employer].4.Fill in the required quintero to create your account. To access your account, visit [email or web address]. Click the blue button labeled Access Patient Portal and then log in with the username and password that you created in the steps above. You will be able to view your test results, lab results, a summary of your visits, upcoming appointments and more. There is also a convenient messaging option where you can send secure messages to your p Dextrysvider. In addition, you will have the ability to download any documents or summaries to your computer and/or send the information securely to a physician. Remember that your healthcare information is confidential, so carefully consider who you will allowto register on the [employer] Patient Portal for access to your information. You can also access the [employer] Patient Portal on the DeepRockDrivewhere joya. Simply click on Patient Portal and then log into your account. If you would like to receive a full copy of your medical records, please contact the [facility] Medical Records Department by calling [phone], Friday through Friday between 8 a.m. and 4:30 p.m. HOW TO SAFELY DISPOSE OF PRESCRIPTION MEDICATIONS Please use one of the following methods to safely dispose of your unused medications. 1.Use a drug disposal kit: the drug disposal pouch allows you to safely discard your old and unuseddrugs. Ask your nurse to give you one when you are discharged.2.Visit a local take-back location: Many local pharmacies and police departments have programs that collect old and unwanted prescriptiondrugs. Call your local pharmacy or go to http://Wishabi.ConsumerBell/9M4Nl9o to find one close to you.3.Make use of household items: Use cat litter or old coffee grounds to dispose medications if other options arenot available. Mix your drugs with these household products, seal them in an airtight container andthrow it into the garbage. Call [facility]: [phone] to be sure your drugs can be disposed of in this way. Some medicines may require a different approach.4.Never flush your medications down the toilet. IF YOU HAVE BEEN PRESCRIBED AN OPIOID FOR PAIN If you have been prescribed an opioid (such as hydrocodone, oxycodone or morphine), it is critical to understand the possible side effects and risks of opioid pain medications. Even when taken as directed, opioids can have several side effects including: Tolerance, meaning you might need to take more of a medication for the same pain relief. Nausea, vomiting and/or constipation. Sleepiness, dizziness, dry mouth, confusion, depression or itching. Physical dependence, meaning you have withdrawal symptoms when a medication is stopped, can develop within a few days. KNOW YOUR RESPONSIBILITIES It is important to know exactly how much and how often to take the opioid pain medications you are prescribed. Never take opioids in higher amounts or more often than prescribed. Do not combine opioids with alcohol or other drugs that cause drowsiness, such as benzodiazepines, also known as benzos, including diazepam and alprazolam, muscle relaxants or sleep aids. Never sell or share prescription opioids. This is illegal. Store opioids in a secure place and out of reach of others (including children, family, friends and visitors). The last page of this document has been signed and retained as a CHART COPY. Signatures Patient Education Materials 1-SDS Discharge Instructions Template (08/2018)(CUSTOM) Radiology- Nephrostomy/Nephroureteral Tube Exchange 12/26/2022(CUSTOM) Medication Leaflets My discharge plan and instructions have been reviewed and explained to me and I,LALY NAVAS understand my current condition and have read and understand these discharge instructions. I have received a written copy of the plan/instructions. If I have questions, I am aware that I should contact my doctor. 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 Name: ANTONELLA LALY Boyce /Sex: 1990 Female Med Rec #: [id number] Physician: Financial #: [id number] Pt. Type: S Room/Bed: [facility]/A Admit/Disch: 10/22/23 09:10:31 - Institution: Allergies identified in patient's electronic medical record at time of printing on 10/22/23 Entry 1 Entry 2 Substance Oranges penicillin Reaction Type Allergy Allergy Last Modified By: Shoshana Renteria RN, Kimberly V. RN 07/21/23 10:11:02 07/21/23 10:10:45 Case Attendance- IR Entry 1 Entry 2 Entry 3 Case Attendee VIRAL MASON MD, Ph.D Cristina Simons RN, Rad Tech Kathy A Role Performed Primary Surgeon [employer] Professor 1 Scrub Technologist Details Time In 10/22/23 14:47:00 10/22/23 14:31:00 10/22/23 14:31:00 Time Out 10/22/23 14:54:00 10/22/23 15:02:00 10/22/23 15:02:00 Procedure/Preference IR Nephrostomy Exchange IR Nephrostomy Exchange IR Nephrostomy Exchange Card (SN) (SN) (SN) Last Modified By: Cristina Simons RN, Tracie N RN Aller, Tracie N RN 10/22/23 14:56:59 10/22/23 14:56:59 10/22/23 14:56:59 Entry 4 Entry 5 Case Attendee Karolina Prater MATTHEW J APRN-SCALEMAKER Role Performed Circulating Technologist SCALEMAKER Details Time In 10/22/23 14:31:00 10/22/23 14:31:00 Time Out 10/22/23 15:02:00 10/22/23 15:02:00 Procedure/Preference IR Nephrostomy Exchange IR Nephrostomy Exchange Card (SN) (SN) Last Modified By: Cristina Simons RN, Tracie N RN 10/22/23 14:56:59 10/22/23 14:56:59 Radiology Procedures- IR Entry 1 Procedure/Preference IR Nephrostomy Exchange Actual Procedure IR NEPH TUBE CHANGE Card (SN) Primary Procedure Yes Primary Surgeon VIRAL MASON MD, Ph.D Anesthesia/Sedation General, Local Type Additional Procedure Times Start 10/22/23 14:47:00 Stop 10/22/23 14:54:00 Specialty Service SN Radiology Procedure EBL 3 mL Last Modified By: Cristina Simons RN 10/22/23 14:56:05 Radiology Procedure Details - IR Entry 1 Radiology Sedation Case Times Sedation Total Time 0 minutes Radiology - Fluid/Drainage Radiology Contrast Contrast Used? Yes Dose 10 mL Medication OMNIPAQUE 300 50ML 10/PK Y-530 [facility] [id number] Radiology Flouroscopy Fluoroscopy Used? Yes Fluoro Dose (mGy) 12 Fluoro Time 0.9 minutes Radiology Local Local Used? Yes Local Type: lidocaine Local Dose 4 mL Radiology Procedure Site Site/Location Left lower back Site Condition No complications Suture 0 Prolene Dressing Type Gauze sponge 4 X 4, Transparent Last Modified By: Cristina Simons RN 10/22/23 14:56:38 General Case Data - IR Entry 1 Case Information Room IR 18 Case Level IR Level 3 Wound Class None Specialty SN Radiology Procedure ASA Class 3 Diagnosis Preop Diagnosis Neph tube change Postop Same As Preop Yes Postop Diagnosis Neph tube change Last Modified By: Cristina Simons RN 10/22/23 14:41:08 Procedure Case Times- IR Entry 1 Patient In Procedure Patient In OR 10/22/23 14:31:00 Patient Out of OR 10/22/23 15:02:00 Procedure Start/Stop Procedure Start Time 10/22/23 14:47:00 Procedure Stop Time 10/22/23 14:54:00 Last Modified By: Cristina Simons RN 10/22/23 14:56:57 Immediate Post Procedure Note - IR Entry 1 Immediate Post Yes Procedure Note displayed for Physician to review Closure Technique Closure Technique Other than Primary Last Modified By: Cristina Simons RN 10/22/23 14:40:30 Immediate Post Procedure Note - IR Signed By: VIRAL MASON MD, Ph.D 10/22/23 14:55 Allergy Information- IR Entry 1 Allergies Reviewed? Yes Allergies Reviewed Patient With Last Modified By: Karolina Prater 10/22/23 14:35:07 Radiology Protocols/Time Out- IR Entry 1 Preprocedure Clinician Verifies Correct patient ID When Clinically Confirmation of correct using name & date Indicated side(s) and site(s), or MRN, Accurate Correct diagnostic and procedure, complete radiology tests Informed Consent, H & P available, Required update immediately blood products, prior to procedure, if implants, devices applicable and/or special equipment available OR/Procedure Room/Bedside Time 10/22/23 14:47:00 Clinician Verifies Correct patient identity including EMR & records using name and date or medical record number, Accurate procedure consent form, Correct patient position, Necessary equipment is available, Anticipated non-routine events with surgical team (case duration, estimated blood loss, patient specific concerns)., Parada patient factors for recovery and management identified with surgical team. When Applicable Confirmation correct Team Members VIRAL MASON MD, side and site marked, Present for Time Out Ph.D, Cristina Simons Relevant images and RNSandi Rad Tech results are properly Moi Brown Jacque labeled and ELIANA Bermudez MATTHEW J appropriately LITIGATION ATTORNEY ASSOCIATE-SCALEMAKER displayed, Alcohol based prep dry, Double verification of sterility indicators complete Instrument Sterility Team Members Sam Junior Verifying Sterility Procedure IR Nephrostomy Exchange (SN) Last Modified By: Cristina Simons RN 10/22/23 14:47:59 Skin Prep- IR Entry 1 Procedure IR Nephrostomy Exchange (SN) Skin Prep Prep Area Back Side Left By Sam Junior Prep Agents Chloraprep Hair Removal Method N/A Last Modified By: Cristina Simons RN 10/22/23 14:47:53 Patient Positioning- IR Entry 1 Procedure IR Nephrostomy Exchange Body Position OP Prone (SN) Feet Uncrossed? Yes Pressure Points Yes Checked Last Modified By: Cristina Simons RN 10/22/23 14:40:26 Radiology Procedure Plan - IR Entry 1 Radiology - Nursing Care Plan Outcome Statement The patient Outcome Statement The patient receives demonstrates knowledge Cont. appropriate of the expected medication(s), safely responses to the administered during the operative/invasive perioperative/invasive procedure., The period., The patient is patient's value system, free from signs and lifestyle, ethnicity, symptoms of injury and culture are caused by extraneous considered, respected, objects (equipment, and incorporated in the instrumentation, perioperative plan of sponges, or sharps). care., The patient is free from signs and symptoms of infection. Radiology - Action Plan Outcomes Met? Yes Mottler Operator Cristina Simons RN Completing Procedure Plan Last Modified By: Cristina Simons RN 10/22/23 14:40:41 Case Comments Finalized By: Cristina Simons RN Document Signatures Signed By: Cristina Simons RN 10/22/23 14:57 Cristina Simons RN 10/22/23 15:04 [id number] Note ORIGINAL EXAMINATION: IR NEPHROSTOMY TUBE [id number]/22/2023 3:02 pm IR NEPHROSTOMY TUBE CHANGE HISTORY: ORDERING SYSTEM PROVIDED HISTORY: Reason for Exam: CERVICAL CA COMPARISON: 07/24/2023 nephrostomy exchange TECHNIQUE: TECHNICAL DETAILS: CONSENT: Following a thorough explanation of the risk, benefits, and alternatives for the intended procedure, informed consent was obtained. TIME OUT: Prior to the procedure a time out was performed in the presence of the patient and all personnel involved in this case. The patient identity, procedure type, procedure side/site, and allergies were verified. SEDATION: Anesthesia was provided by the general anesthesia team. LOCAL ANESTHETIC: Lidocaine GUIDANCE: Fluoroscopy RADIATION TIME: 0.9 min RADIATION DOSE: 12 mGy CONTRAST: 10 cc Omnipaque INDWELLING DEVICE: 10F Locking Loop Drain PHYSICIAN: Viral Mason MD, PhD PROCEDURAL TECHNIQUE AND FINDINGS: The patient was transferred to the IR suite and was positioned supine on the procedural table. The patient was prepped and draped in the usual sterile fashion. Contrast was injected through the patient's existing catheter, and a nephrostogram was obtained. After infiltration of the catheter skin entry site with Lidocaine, the existing catheter was removed over a guidewire and a new nephrostomy catheter was advanced over the wire. Catheter position confirmed by contrast injection. The catheter was fixed in place and attached to a gravity drainage bag. A sterile, occlusive dressing was applied. . Complications: The patient left the department with no immediate complications. IMPRESSION: Success exchange of a right Nephrostomy drainage catheter. RECOMMENDATIONS: Routine exchange in 8-12 weeks. Interpreted by: Viral Mason MD Preliminary Report By: Viral Mason MD Electronically signed By Viral Mason MD Dictated Date: 10/22/2023 4:29:16 PM Prelim Date: 10/22/2023 4:31:01 PM Sign Date: 10/22/2023 4:31:01 PM Ordering Provider: [facility]12-20-2023 Procedure note Interventional Radiology Procedure Note Pre-procedure Diagnosis: obstruction Post-procedure Diagnosis: same Procedure: 10F Neph exchange Technique/Findings: Routine left neph tube exchange. Anesthesia utilized. Full report to follow. Orders in Cerner. Performed by: Viral Mason MD, PhD Food Quality Tester: None Complications: None Estimated Blood loss: Minimal Specimen: None Digitally Signed by VIRAL MASON MD, Ph.D on 10/22/2023 02:58 PM [id number] Anesthesiology Consult note Patient: LALY NAVAS Age: 32 years Sex: Female : 1990 Associated Diagnoses: None Author: OLE MONK MD Preoperative Information NPO > 8 hours Anesthesia history Patient's history: negative. Health Status Allergies: Allergic Reactions (Selected) Severity Not Documented Oranges- Tongue swelling and difficulty breathing. Penicillin- Hives., Allergies (2) ActiveReaction OrangesTongue swelling penicillinHives Current medications: (Selected) Inpatient Medications Ordered NS 1,000 mL: Start: 09/04/23 11:53:00 EDT, Rate: 20 mL/hr, 09/04/23 11:53:00 EDT NS 1,000 mL: Start: 10/22/23 5:00:00 EST, Rate: 20 mL/hr, 10/22/23 5:00:00 EST Percocet 325/5: Start: 10/22/23 9:45:00 EST, Dose = 1 tab(s), Tab, Oral, Once, Stop: 10/22/23 9:45:00 EST, 10/22/23 9:33:00 EST lidocaine 1% preservative-free injectable solution: Start: 07/03/20 5:00:00 EDT, Dose = 2.5 mg, = 0.25 mL, Intradermal, prep pharm, 12 hour(s), Stop: 07/03/20 16:59:00 EDT, 0 lidocaine 1% preservative-free injectable solution: Start: 07/18/20 5:00:00 EDT, Dose = 2.5 mg, = 0.25 mL, Intradermal, prep pharm, 13 hour(s), Stop: 07/18/20 17:59:00 EDT, 0 Prescriptions Prescribed Calcium Plus Vitamin D3 600 mg-12.5 mcg (500 intl units) oral capsule: Dose = 2 cap(s), Oral, qDay,with food, # 120 EA, 0 Refill(s), Pharmacy: [id number], 167.6, cm, 05/15/23 15:33:00 EDT, Height LORazepam 1 mg oral tablet: Dose : 1 mg = 1 tab(s), Oral, BID, # 60 tab(s), 0 Refill(s), Pharmacy: [facility] Cancer related pain History of cervical cancer, 167.6, cm, 09/03/23 13:59:00 EDT, Height, 63.6, kg, 09/03/23 13:59:00 EDT, Dosing Weight OxyContin 15 mg oral tablet, extended release: Dose : 15 mg = 1 tab(s), Oral, BID, # 60 tab(s), 0 Refill(s), Pharmacy: [facility] Cancer related pain Cervical ca, 167.6, cm, 09/03/23 13:59:00 EDT, Height, 63.6, kg, 09/03/23 13:59:00 EDT, Dosing Weight ondansetron 4 mg oral tablet: Dose : 4 mg = 1 tab(s), Oral, q6h, PRN Nausea/Vomiting, # 60 tab(s), 2 Refill(s), Pharmacy: [facility] 167.6, cm, 09/03/23 13:59:00 EDT, Height, kg, 09/03/23 13:59:00 EDT, Dosing Weight oxyCODONE 15 mg oral tablet ( IMMEDIATE release ): Dose : 15 mg = 1 tab(s), Oral, q6hr, may fill on10/05/23, # 120 tab(s), 0 Refill(s), Pharmacy: [facility], Cervical cancer, 167.6, cm, 09/03/23 13:59:00 EDT, Height, 63.6, kg, 09/03/23 13:59:00 EDT, Dosing Weight Documented Medications Documented ondansetron 4 mg oral tablet: Dose : 4 mg = 1 tab(s), Oral, q6h, PRN Nausea/Vomiting, Medications (2) Active Scheduled: (1) acetaminophen-OXYcodone 325 mg-5 mg Tablet 1 tab(s), Oral, Once Continuous: (1) NS (0.9% nacl) 1,000 mL 1,000 mL, Intravenous, 20 mL/hr PRN: (0) Problem list: Medical Anxiety / SNOMED CT 17615592 / Confirmed Asthma / SNOMED CT 305671983 / Confirmed Decreased appetite / SNOMED CT 315526610 / Confirmed Dehydration / SNOMED CT 51786312 / Confirmed Port-A-Cath in place / SNOMED CT 3211827566 / Confirmed Bilateral flank pain / SNOMED CT 920987449 / Confirmed History of chemotherapy / SNOMED CT 1343619648 / Confirmed Hx of cervical cancer / SNOMED CT 3776470729 / Confirmed History of radiation therapy / SNOMED CT 3052220321 / Confirmed Hydronephrosis, left / SNOMED CT 54060037 / Confirmed Acute kidney injury / SNOMED CT 06587469 / Confirmed Left flank pain / SNOMED CT 601850626 / Confirmed Cervical cancer / SNOMED CT 765826566 / Confirmed Moderate protein-calorie malnutrition / SNOMED CT 774012815 / Confirmed Nausea and vomiting / SNOMED CT 31122343 / Confirmed Cancer related pain / SNOMED CT 4365640899 / Confirmed DVT prophylaxis / SNOMED CT 249830169 / Confirmed Palliative care encounter / SNOMED CT 701863340 / Confirmed Premature menopause / SNOMED CT 2230624798 / Confirmed Pyelonephritis / SNOMED CT 90072869 / Confirmed Nephrostomy status / SNOMED CT 349695083 / Confirmed Complicated UTI (urinary tract infection) / SNOMED CT 367801646 / Confirmed Obstructive uropathy / SNOMED CT 39095918 / Confirmed, Active Problems (28) Acute kidney injury Anxiety Asthma Bilateral flank pain Bradycardia Cancer related pain Cervical cancer Complicated UTI (urinary tract infection) Contact lenses COVID-19 Decreased appetite Dehydration DVT prophylaxis Fall Glasses History of chemotherapy History of radiation therapy Hx of cervical cancer Hydronephrosis, left Left flank pain Moderate protein-calorie malnutrition Nausea and vomiting Nephrostomy status Obstructive uropathy Palliative care encounter Port-A-Cath in place Premature menopause Pyelonephritis Histories Past Medical History: Resolved ESBL (extended spectrum beta-lactamase) producing bacteria infection (1641200829): Onset on 02/23/2023 at 32 years. Resolved on 05/07/2023 at 32 years. ESBL (extended spectrum beta-lactamase) producing bacteria infection (1427245267): Onset on 08/09/2022 at 31 years. Resolved on 01/02/2023 at 32 years. Comments: 01/02/2023 EST 10:02 JAMAL Haynes Removed ESBL disease alert from 08/2022 per infection control protocol on 01/02/23. Mass of cervix (058619871): Resolved. Chronic kidney disease, stage 3 (moderate) (3034925249): Resolved. Hydronephrosis of left kidney (62009868): Resolved. Cervicitis (313681590): Resolved. Encounter for antineoplastic chemotherapy (571815861): Resolved. Tinnitus (124017746): Resolved. History of COVID-19 (0958898417): Resolved. Family History: Cancer Sister COPD - Chronic obstructive pulmonary disease Mother Kidney stone Mother Asthma Mother Breast cancer Mother Hypertension Mother Heart disease Mother Substance abuse Father Alcohol abuse Father Stroke Grandparent Father Heart attack Mother Diabetes Grandparent Procedure history: Nephrostomy with tube drainage (61051678) in the month of 07/2023 at 32 Years. Comments: 06/13/2020 10:09 JAMAL Guaman left Nephrostomy with tube drainage (11938081) on 01/10/2021 at 30 Years. Cannulation of Portacath (260818276) in 2020 at 30 Years. Comments: 06/13/2020 10:09 JAMAL Guaman right JJ stent ([id number]) on 11/15/2020 at 29 Years. Radiation (345243141) in the month of 06/2020 at 29 Years. Comments: 06/26/2020 6:12 GINNY Burton RN Mayi A via tandems and oviod X2 Cervical biopsy (48069922) in 2019 at 29 Years. Comments: 04/12/2020 18:25 Eri Conte RN pt states she had a cervical biopsy done on 04/07/2020 at [facility] for a cervical mass Tumor cells, benign (22547380) in 2001 at 11 Years. 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 done at [facility] in [place] Social History Social & Psychosocial Habits Alcohol 10/22/2023Risk Assessment: Denies Alcohol Use 10/22/2023 Use: Past Type: Beer Frequency: 1-2 times per week Substance Abuse 10/22/2023 Use: Never 10/22/2023Risk Assessment: Denies Substance Abuse Tobacco 10/22/2023 Tobacco Use: Former smoker, quit more Exposure to Tobacco Smoke Lives in non-smoking home Started at age: 19 Years Stopped at age: 32 Years Smokeless tobacco use: Never 10/22/2023 Tobacco Use: Former smoker, quit more Type: Cigarettes Tobacco use per day: 10 Number of years: 10 Started at age: 19 Years Stopped at age: 32 Years Previous treatment: None Ready to change: Yes Home/Environment 10/22/2023Risk Assessment: No Risk 10/22/2023 Domestic Concerns None Living situation: Home/Independent Safe place to go: Yes Lives In Mobile home Current Home Treatments None Special Services and Community Resources None Financial concerns: No Marital Status of Patient if Patient Independent Adult: Unmarried Nutrition/Health 10/22/2023 Type of diet: Regular Appetite Fair Eating Difficulties None Caffeine intake amount: 1 can pop per day 10/22/2023Risk Assessment: No Risk Sexual 10/22/2023 Sexually active: Yes First active at age: 18 Years Current partners: 1 Number of lifetime partners: 7 Self described orientation: Straight or heterosexual Other contraceptive use: condoms History of sexual abuse: No What is your current gender identity? (Check all that apply) Identifies as female . Physical Examination Vital Signs(last 24 hrs) Last Charted Resp Rate 16 br/min (OCT 22 10:16) EQX010 mmHg (OCT 22 10:16) DBP83 mmHg (OCT 22 10:16) Measurements from flowsheet : Measurements 10/22/2023 10:16 EST Height 167.6 cm Height in inches 66 inch(es) Admission Weight 61.4 kg Weight Lbs 135.1 lb [place] Body Weight 59.26 kg Admission Body Mass Index 21.86 m2 General: Alert and oriented. Airway: Mallampati classification: II (soft palate, fauces, uvula visible). Dentition Evaluation: Intact. Respiratory: Lungs are clear to auscultation, Respirations are non-labored. Cardiovascular: Normal rate, Regular rhythm. Heart Sounds: Normal. Neurologic: Alert, Oriented. Review / Management Results review: No qualifying data available . Documentation reviewed: Current records. Assessment and Plan [employer] of Anesthesiologists (ASA) physical status classification: Class III. Anesthetic Preoperative Plan Premedication: intravenous. Anesthetic technique: MAC. Postoperative pain management: Per surgeon. Informed consent: signed by patient. Notes: Cervical CA. Digitally Signed by OLE MONK MD on 10/22/2023 02:01 PM [id number] Evaluation + Plan noteExtracted from: Title:IR Pre-Procedure H&P Author:TAMIA LEIJA PA-C Date:10/22/23 Interventional Radiology Focused Preprocedure History/Physical Reason for Visit CERVICAL CANCER History of Presenting Illness/Planned IR Procedure Hx cervical cancer with chronic left nephrostomy tube Allergies (2) ActiveReaction OrangesTongue swelling penicillinHives Home Medications (6) Active Calcium Plus Vitamin D3 600 mg-12.5 mcg (500 intl units) oral capsule 2 cap(s), Oral, qDay LORazepam 1 mg oral tablet 1 mg = 1 tab(s), Oral, BID ondansetron 4 mg oral tablet 4 mg = 1 tab(s), PRN, Oral, q6h ondansetron 4 mg oral tablet 4 mg = 1 tab(s), PRN, Oral, q6h oxyCODONE 15 mg oral tablet ( IMMEDIATE release ) 15 mg = 1 tab(s), Oral, q6hr OxyContin 15 mg oral tablet, extended release 15 mg = 1 tab(s), Oral, BID Problem List/Past Medical History Fall COVID-19 Acute kidney injury Anxiety Asthma Bilateral flank pain Bradycardia Cancer related pain Cervical cancer Complicated UTI (urinary tract infection) Contact lenses DVT prophylaxis Decreased appetite Dehydration Glasses History of chemotherapy History of radiation therapy Hx of cervical cancer Hydronephrosis, left Left flank pain Moderate protein-calorie malnutrition Nausea and vomiting Nephrostomy status Obstructive uropathy Palliative care encounter Port-A-Cath in place Premature menopause Pyelonephritis Surgical History Nephrostomy with tube drainage: 07/2023 Nephrostomy with tube drainage: 01/10/21 JJ stent: 11/15/20 Radiation: 06/2020 Cervical biopsy: 2019 Tumor cells, benign: 2001 Family History Mother: Asthma; Breast cancer; COPD - Chronic obstructive pulmonary disease; Heart attack; Heart disease; Hypertension; Kidney stone Father: Alcohol abuse; Stroke; Substance abuse Sister: Cancer Grandparent: Diabetes; Stroke Social History Alcohol Risk Assessment: Denies Alcohol Use; Details: Use: Past. Type: Beer. Frequency: 1-2 times per week. Home/Environment Risk Assessment: No Risk; Details: Domestic Concerns: None. Living situation: Home/Independent. Safe place to go: Yes. Lives In: Mobile home. Current Home Treatments None. Professional Skilled Services or Special Community Resources None. Financial concerns: No. Marital Status: Unmarried. Nutrition/Health Risk Assessment: No Risk; Details: Type of diet: Regular. Appetite Fair. Eating Difficulties None. Caffeine intake amount: 1 can pop per day. Sexual Details: Sexually active: Yes. First active at age: 18 Years. Current partners: 1. Number of lifetime partners: 7. Self described orientation: Straight or heterosexual. Other contraceptive use: condoms. History of sexual abuse: No. Gender Identity: Identifies as female. Substance Abuse Risk Assessment: Denies Substance Abuse; Details: Use: Never. Tobacco Details: Nicotine Use: Former smoker, quit more than 30 days ago. Exposure to Tobacco Smoke Lives in non-smoking home. Started at age: 19 Years. Stopped at age: 32 Years. Smokeless Tobacco Use: Never. Details: Nicotine Use: Former smoker, quit more than 30 days ago. Type: Cigarettes. Tobacco use per day: 10. Number of years: 10. Started at age: 19 Years. Stopped at age: 32 Years. Previous treatment: None. Ready to change: Yes. Physical Exam Vitals: Tqsbcsflexo64.9 (10:16) Systolic Blood Womsicjd177 (10:16) Diastolic Blood Pazxhuqd03 (10:16) Pulse76 (10:16) QaS3307 (10:16) Respiratory Rate16 (10:16) General: Alert, cooperative. Heart: Regular Lungs: Clear +LEFT neph tube The remainder of the physical exam is noncontributory. Labs Anticoagulation Labs No qualifying data available. No qualifying data available. Assessment/Treatment Plan LEFT nephrostomy tube exchange Post Procedure Discharge Plan Patient to be discharged home. Tadeo Leija PA-C Interventional Radiology Pager: [phone] IR dept: x [phone] Available on [employer] Future Appointments Appointment Date:10/31/2023 10:00:00 AM Scheduled Provider:BRITTNI LU Location:[facility] Appointment Type:SO OV Follow Up Appointment Date:11/18/2023 09:30:00 AM Scheduled Provider:OLE PACE MD Location:[facility] Appointment Type:PALL OV Follow Up Appointment Date:12/03/2023 11:00:00 AM Scheduled Provider: Location:IR Appointment Type:IR Nephrostomy Exchange Future Scheduled Tests Laboratory* Urinalysis 02/14/23 Radiology* IR Nephrostomy Exchange 12/03/23 * IR Neph Cath-Neph Ureter W/Guide Left 06/30/23 * IR Nephrostomy Tube Change Lt Guide 09/04/23 [facility] 12-20-2023 Note Interventional Radiology Focused Preprocedure History/Physical Reason for Visit CERVICAL CANCER History of Presenting Illness/Planned IR Procedure Hx cervical cancer with chronic left nephrostomy tube Allergies (2) ActiveReaction OrangesTongue swelling penicillinHives Home Medications (6) Active Calcium Plus Vitamin D3 600 mg-12.5 mcg (500 intl units) oral capsule 2 cap(s), Oral, qDay LORazepam 1 mg oral tablet 1 mg = 1 tab(s), Oral, BID ondansetron 4 mg oral tablet 4 mg = 1 tab(s), PRN, Oral, q6h ondansetron 4 mg oral tablet 4 mg = 1 tab(s), PRN, Oral, q6h oxyCODONE 15 mg oral tablet ( IMMEDIATE release ) 15 mg = 1 tab(s), Oral, q6hr OxyContin 15 mg oral tablet, extended release 15 mg = 1 tab(s), Oral, BID Problem List/Past Medical History Fall COVID-19 Acute kidney injury Anxiety Asthma Bilateral flank pain Bradycardia Cancer related pain Cervical cancer Complicated UTI (urinary tract infection) Contact lenses DVT prophylaxis Decreased appetite Dehydration Glasses History of chemotherapy History of radiation therapy Hx of cervical cancer Hydronephrosis, left Left flank pain Moderate protein-calorie malnutrition Nausea and vomiting Nephrostomy status Obstructive uropathy Palliative care encounter Port-A-Cath in place Premature menopause Pyelonephritis Surgical History Nephrostomy with tube drainage: 07/2023 Nephrostomy with tube drainage: 01/10/21 JJ stent: 11/15/20 Radiation: 06/2020 Cervical biopsy: 2019 Tumor cells, benign: 2001 Family History Mother: Asthma; Breast cancer; COPD - Chronic obstructive pulmonary disease; Heart attack; Heart disease; Hypertension; Kidney stone Father: Alcohol abuse; Stroke; Substance abuse Sister: Cancer Grandparent: Diabetes; Stroke Social History Alcohol Risk Assessment: Denies Alcohol Use; Details: Use: Past. Type: Beer. Frequency: 1-2 times per week. Home/Environment Risk Assessment: No Risk; Details: Domestic Concerns: None. Living situation: Home/Independent. Safe place to go: Yes. Lives In: Mobile home. Current Home Treatments None. Professional Skilled Services or Special Community Resources None. Financial concerns: No. Marital Status: Unmarried. Nutrition/Health Risk Assessment: No Risk; Details: Type of diet: Regular. Appetite Fair. Eating Difficulties None. Caffeine intake amount: 1 can pop per day. Sexual Details: Sexually active: Yes. First active at age: 18 Years. Current partners: 1. Number of lifetime partners: 7. Self described orientation: Straight or heterosexual. Other contraceptive use: condoms. History of sexual abuse: No. Gender Identity: Identifies as female. Substance Abuse Risk Assessment: Denies Substance Abuse; Details: Use: Never. Tobacco Details: Nicotine Use: Former smoker, quit more than 30 days ago. Exposure to Tobacco Smoke Lives in non-smoking home. Started at age: 19 Years. Stopped at age: 32 Years. Smokeless Tobacco Use: Never. Details: Nicotine Use: Former smoker, quit more than 30 days ago. Type: Cigarettes. Tobacco use perday: 10. Number of years: 10. Started at age: 19 Years. Stopped at age: 32 Years. Previous treatment: None. Ready to change: Yes. Physical Exam Vitals: Ukemmajffky65.9 (10:16) Systolic Blood Ljiiaigh710 (10:16) Diastolic Blood Bpuaagir96 (10:16) Pulse76 (10:16) OzC7510 (10:16) Respiratory Rate16 (10:16) General: Alert, cooperative. Heart: Regular Lungs: Clear +LEFT neph tube The remainder of the physical exam is noncontributory. Labs Anticoagulation Labs No qualifying data available. No qualifying data available. Assessment/Treatment Plan LEFT nephrostomy tube exchange Post Procedure Discharge Plan Patient to be discharged home. Tadeo Leija PA-C Interventional Radiology Pager: [phone] IR dept: [phone] Available on [employer] Digitally Signed by TADEO LEIJA PA-C on 10/22/2023 01:31 PM [id number] Note. MICRO - Microbiology PROCEDURE: Blood Culture (fungal and bacterial) [O1 *1] SOURCE: Blood BODY SITE: COLLECTED DATE/TIME: 07/09/2023 07:09 EDT RECEIVED DATE/TIME: 07/09/2023 09:14 EDT START DATE/TIME: 07/09/2023 09:14 EDT FREE TEXT SOURCE: FINAL REPORTS Final Report [] Verified Date/Time/Personnel: 08/06/2023 08:27 EDT Blood Culture with fungus: No growth at 4 weeks. PRELIMINARY REPORTS Preliminary Report [] Verified Date/Time/Personnel: 07/09/2023 09:59 EDT Culture has been received in lab and is no growth to date. Culture will be held for four weeks. Order Comments O1: Blood Culture (fungal and bacterial) Collect before starting meropenem Performing Locations *1: This test was performed at: [facility], [address] [place] [address], [facility]- , [facility] ([place])07-24-2023 Hospital Discharge instructions Patient Education 07/24/2023 16:23:03 Radiology- Nephrostomy/Nephroureteral Tube Exchange 12/26/2022(CUSTOM) SAVANNAH Nephrostomy/Nephroureteral Tube Exchange Discharge Instructions Interventional Radiology [facility] [address] [place] [id number] The procedure that you had done today is called a nephrostomy tube exchange. This is a procedure toreplace a pre-existing tube that drains the urine from the kidney in order to prevent pain, infection and kidney damage. This should occur every 6-12 weeks, depending on your physician's orders and personal condition. Your urine may be blood tinged, in the bag and from regular urination, for up to 48 hours. If you had a nephroureteral tube exchange today, then this procedure is to replace a pre-existing tube that goes from your back into the kidney and down the ureter to the bladder. This tube may be either capped or have a dependent bag attached like a nephrostomy tube. Please follow these instructions: DIET: Resume previous diet as tolerated ACTIVITY: Wear loose, comfortable clothing. Make sure your tube is secure at all times. Avoid tugging at the tube. PAIN CONTROL: Mild back discomfort on the side of the tube placement may occur for the first 24 hours. You may experience the feeling of the need to urinate. Xwpz-bhe-ckaeqiy pain medication should be used for pain or discomfort. Please check with the physician who sent you for this procedure for their specific recommendations. If your pain is not relieved or becomes more severe, notify the physician who sent you for this procedure. IF YOU RECEIVED CONSCIOUS SEDATION (IV SEDATION) & YOU ARE DISCHARGED THE SAME DAY You must have someone drive you home when you leave the hospital. For 24 hours after your procedure, do not do anything where you need to make important decisions. This includes operating machinery, signing important documents, etc. MEDICATION: Please resume on . NEPHROSTOMY CARE: Wash your hands well with soap and water before and after caring for your nephrostomy tube. Keep the skin around the nephrostomy tube dry. If the area does get wet, dry the skin completely. Change the dressing every week, or as needed if it is leaking or the dressing becomes saturated. Keep all the ports of the tube and drainage bag as clean as possible to prevent infection. Empty the drainage bags often via the spout at the bottom of the bag. Turn clockwise. Avoid overfilling. Always empty the bag before bed. Some patients will be required to flush their tubes, please check with ordering physician for instructions and supplies. (You do not need to do this unless specifically instructed by your healthcare provider). TUBE PROBLEMS Call Interventional Radiology IMMEDIATELY if the tube falls out. Call Interventional Radiology if you notice decreased or no urine output or if urine leaks from thedressing site from tube. Call your Urologist if any abnormal bleeding, foul odor or drainage, redness, swelling, worsening pain, or fever above 102F. If the catheter falls out, it can be replaced by the doctor ideally within 24 hours. Do not attemptto put the tube back in yourself. BATHING Avoid swimming. You may shower with the nephrostomy bag attached to the skin, sit in a shallow bath, or sponge bathe while the catheter is in place. Be sure to keep the water level below the dressingwhen tub bathing. Please change your dressing if it gets wet. SPECIFIC INSTRUCTIONS TO CHANGE NEPHROSTOMY TUBE DRESSING Supplies needed: Soap and water Clean, dry towel Nephrostomy bag Clean adhesive dressing Gauze Because the nephrostomy tube is located on your back, you will need someone to assist you in changing the dressing. Wash hands well Remove the old dressing, peeling the edges slowly from skin. As the dressing is pulled away from the skin, support the nephrostomy tube with your free hand to prevent placing tension on the tube and accidentally pulling it out. Wash the area around the nephrostomy tube with soap and water. Gently pat the area dry. Need 2 layers of gauze. One layer in between the skin and the tube. Second layer of gauze goes overthe tube. Then place the clean adhesive dressing over the gauze. Supplies may be obtained at: [facility] [address] [facility] [address] [facility] Any questions or concerns, please contact your physician or Interventional Radiology at [phone] from 8-4:30pm Friday-Friday. If you do not have a follow up appointment scheduled at the time of discharge, please call Interventional Radiology at the number listed above. 07/24/2023 16:19:42 1-[facility] Discharge Instructions Template (08/2018)(CUSTOM) [facility] SAME DAY SURGERY DISCHARGE INSTRUCTIONS PLEASE FOLLOW THE INSTRUCTIONS BELOW MARKED WITH AN X: _x__ Regular Diet: Start with clear liquids, then soup and crackers and gradually add other foods. _x__ Drink extra fluids. ___ Special Diet Instructions: ___ ACTIVITY: _x__ Avoid stress to suture line. Since you have had an anesthetic, it would be advisable not to drive, drink alcohol, or make major decisions over the next 24 hours. You may require more rest tonight and tomorrow. ___ May resume regular activity as tolerated. ___ Restrict activity as follows: ___ ___ Walk Only ___ ___ Do not go up and down stairs. ___ Do not ride in car until ___ ___ Do not drive car. ___ Do not have sexual intercourse. ___ No heavy lifting, pushing or straining. _x__ Other: _Follow all verbal and written instructions provided to you by Dr. Aparicio. Call office with any questions or concerns. __ BATHING/SHOWERING: ___ Sponge bathe until office visit. ___ Sitting in tub of warm water may relieve discomfort. ___ May tub bathe _x__ May shower IN 48 hours ___ On day after surgery sit in tub of warm water to soak off dressing. DRESSING: ___ Keep operative area dry and clean for ___ _x__ Check the operative area for signs of bleeding. Apply pressure to the bleeding site if necessary and call your physician. ___ Change dressing as necessary using sterile dressing material or bandaid. ___ Reinforce dressing as necessary. ___ Change and care for wound as follows: ___ ___ Wear bra for ___ days following breast surgery for comfort. ___ Change drip pad as needed. ___ Wear scrotal support for comfort. WATCH FOR SIGNS OF INFECTION: (Usually appears 36-48 hours after surgery) Increased temperature (101 degrees Fahrenheit or higher) Redness or swelling Increased pain Foul odor or drainage. If you have any questions, please call your doctor at the number listed on your follow up instructions. Follow all instructions given to you by your physician. Please complete and return the survey you will be receiving in the mail to help us better serve our patients. Form: 1522 ([id number]) R: 02/09 Follow Up Care 07/22/2023 14:03:34 With:MADELINE APARICIO MD, [facility] Address: [address] [place] [address] [facility] [place] [address]- [phone] When: Unknown Comments:Follow-up as scheduled [facility] 09-21-2023 Nurse Progress note Patient returned from [place] very tearful and upset. Pt states that she was told she could leave as soon as she arrived in [place]. Pt states that her insurance covered ride is leaving at 415 the time patient arrived to [place]. Pt states she has to leave right now. Pt is tearful. Was able to keep patient the required sameday time prior to discharging home. Pt very upset she had to have a wheelchair. Was unsure what her ride looked like. Ride finally found and patient discharged home. Digitally Signed by Tadeo Whitmore RN on 07/24/2023 04:51 PM [place] [id number] Summary of episode note Discharge Instructions Thank you for allowing [facility] to assist you with your healthcare needs. The following is importantdischarge information regarding your hospital visit. Your Care Team FLIP MARTIN MD What to do next Scheduled Follow-Up Appointments Appointment Type When With Where Contact InformationSO OV Follow Up 07/30/2023 11:30 AM EDT FLIP MARTIN MD [facility] [address] [place] [address] PALL New Patient 07/31/2023 03:00 PM EDT OLE PACE MD Palliative Care IR Nephrostomy Tube Change Lt Guide 09/04/2023 01:00 PM EDT IR Follow Up Appointments Follow Up with MADELINE APARICIO MD, [facility] When Why: Follow-up as scheduled Where: [address] [place] [address] [facility] [place] [address]- [phone] The Following Activity and Diet Have Been Ordered for You Discharge Activity - Ordered -- Lifting Restricted less than 10 pounds, x 5 days, 07/24/23 13:58:00 EDT Discharge Diet - Ordered -- No changes were made to your diet during your hospital stay. Please resume your pre hospitalization diet on discharge., 07/24/23 13:58:00 EDT The Following Equipment Has Been Ordered for You Discharge Home Equipment Discharge Wound Care - Ordered -- Dressing Type: Bioclusive drsg, Groin, right, Remove dressing in 2 days. May shower in 24 hours but keep dressing dry. Keep incision dry. Do not submerge in water until incision closed., 07/24/23 13:58:00 EDT Someone Will Contact You Regarding These Home Health Referrals No home referrals have been ordered for you. No one will call you. Allergies Oranges (Tongue swelling, Difficulty breathing) penicillin (Hives) Medications Please ask your primary doctor or pharmacist before taking any other medication not listed, including over the counter drugs, herbal medications, vitamins and or supplements as they may interact withyour home medications. What How Much When Why Instructions Last Dose Changed oxyCODONE (oxyCODONE 5 mg oral tablet ( IMMEDIATE release )) 3 tab(s) by mouth Every 4 hours as needed for as needed for pain Cancer related pain Cervical ca Duration: 10 Days Changed oxyCODONE (OxyContin 15 mg oral tablet, extended release) 1 tab(s) by mouth Two (2) times a day Cancer related pain Cervical ca Unchanged calcium-vitamin D (Calcium Plus Vitamin D3 600 mg-12.5 mcg (500 intl units) oral capsule) 2 cap by mouth Once a day with food Unchanged gabapentin (gabapentin 300 mg oral capsule) 1 cap by mouth Daily at bedtime Cervical cancer Duration: 30 Days Unchanged LORazepam (Ativan 1 mg oral tablet) 1 tab(s) by mouth Every 8 hours Anxiety Cervical ca Duration: 9 Days Unchanged mirtazapine (mirtazapine 15 mg oral tablet) 1 tab(s) by mouth Once a day Unchanged ondansetron (ondansetron 4 mg oral tablet) 1 tab(s) by mouth Every 6 hours as needed for Nausea/Vomiting Please take this list to your next doctor s visit. Bring all medications you take, including over the counter medications, herbals and other supplements with you to your doctor s visit. Patients and families are reminded to discard old lists and to update any records with all medication providers or retail pharmacies. Education Materials SAV[facility]NA[facility] Nephrostomy/Nephroureteral Tube Exchange Discharge Instructions Interventional Radiology [facility] [address] [place] [address] The procedure that you had done today is called a nephrostomy tube exchange. This is a procedure toreplace a pre-existing tube that drains the urine from the kidney in order to prevent pain, infection and kidney damage. This should occur every 6-12 weeks, depending on your physician's orders and personal condition. Your urine may be blood tinged, in the bag and from regular urination, for up to 48 hours. If you had a nephroureteral tube exchange today, then this procedure is to replace a pre-existing tube that goes from your back into the kidney and down the ureter to the bladder. This tube may be either capped or have a dependent bag attached like a nephrostomy tube. Please follow these instructions: DIET: Resume previous diet as tolerated ACTIVITY: Wear loose, comfortable clothing. Make sure your tube is secure at all times. Avoid tugging at the tube. PAIN CONTROL: Mild back discomfort on the side of the tube placement may occur for the first 24 hours. You may experience the feeling of the need to urinate. Irbe-vyd-fnyqjwe pain medication should be used for pain or discomfort. Please check with the physician who sent you for this procedure for their specific recommendations. If your pain is not relieved or becomes more severe, notify the physician who sent you for this procedure. IF YOU RECEIVED CONSCIOUS SEDATION (IV SEDATION) & YOU ARE DISCHARGED THE SAME DAY You must have someone drive you home when you leave the hospital. For 24 hours after your procedure, do not do anything where you need to make important decisions. This includes operating machinery, signing important documents, etc. MEDICATION: Please resume on . NEPHROSTOMY CARE: Wash your hands well with soap and water before and after caring for your nephrostomy tube. Keep the skin around the nephrostomy tube dry. If the area does get wet, dry the skin completely. Change the dressing every week, or as needed if it is leaking or the dressing becomes saturated. Keep all the ports of the tube and drainage bag as clean as possible to prevent infection. Empty the drainage bags often via the spout at the bottom of the bag. Turn clockwise. Avoid overfilling. Always empty the bag before bed. Some patients will be required to flush their tubes, please check with ordering physician for instructions and supplies. (You do not need to do this unless specifically instructed by your healthcare provider). TUBE PROBLEMS Call Interventional Radiology IMMEDIATELY if the tube falls out. Call Interventional Radiology if you notice decreased or no urine output or if urine leaks from thedressing site from tube. Call your Urologist if any abnormal bleeding, foul odor or drainage, redness, swelling, worsening pain, or fever above 102F. If the catheter falls out, it can be replaced by the doctor ideally within 24 hours. Do not attemptto put the tube back in yourself. BATHING Avoid swimming. You may shower with the nephrostomy bag attached to the skin, sit in a shallow bath, or sponge bathe while the catheter is in place. Be sure to keep the water level below the dressingwhen tub bathing. Please change your dressing if it gets wet. SPECIFIC INSTRUCTIONS TO CHANGE NEPHROSTOMY TUBE DRESSING Supplies needed: Soap and water Clean, dry towel Nephrostomy bag Clean adhesive dressing Gauze Because the nephrostomy tube is located on your back, you will need someone to assist you in changing the dressing. Wash hands well Remove the old dressing, peeling the edges slowly from skin. As the dressing is pulled away from the skin, support the nephrostomy tube with your free hand to prevent placing tension on the tube and accidentally pulling it out. Wash the area around the nephrostomy tube with soap and water. Gently pat the area dry. Need 2 layers of gauze. One layer in between the skin and the tube. Second layer of gauze goes overthe tube. Then place the clean adhesive dressing over the gauze. Supplies may be obtained at: [facility] [address] [facility] [address] [facility] Any questions or concerns, please contact your physician or Interventional Radiology at [phone] from 8-4:30pm Friday-Friday. If you do not have a follow up appointment scheduled at the time of discharge, please call Interventional Radiology at the number listed above. [facility] SAME DAY SURGERY DISCHARGE INSTRUCTIONS PLEASE FOLLOW THE INSTRUCTIONS BELOW MARKED WITH AN X: _x__ Regular Diet: Start with clear liquids, then soup and crackers and gradually add other foods. _x__ Drink extra fluids. ___ Special Diet Instructions: ___ ACTIVITY: _x__ Avoid stress to suture line. Since you have had an anesthetic, it would be advisable not to drive, drink alcohol, or make major decisions over the next 24 hours. You may require more rest tonight and tomorrow. ___ May resume regular activity as tolerated. ___ Restrict activity as follows: ___ ___ Walk Only ___ ___ Do not go up and down stairs. ___ Do not ride in car until ___ ___ Do not drive car. ___ Do not have sexual intercourse. ___ No heavy lifting, pushing or straining. _x__ Other: _Follow all verbal and written instructions provided to you by Dr. Aparicio. Call office with any questions or concerns. __ BATHING/SHOWERING: ___ Sponge bathe until office visit. ___ Sitting in tub of warm water may relieve discomfort. ___ May tub bathe _x__ May shower IN 48 hours ___ On day after surgery sit in tub of warm water to soak off dressing. DRESSING: ___ Keep operative area dry and clean for ___ _x__ Check the operative area for signs of bleeding. Apply pressure to the bleeding site if necessary and call your physician. ___ Change dressing as necessary using sterile dressing material or bandaid. ___ Reinforce dressing as necessary. ___ Change and care for wound as follows: ___ ___ Wear bra for ___ days following breast surgery for comfort. ___ Change drip pad as needed. ___ Wear scrotal support for comfort. WATCH FOR SIGNS OF INFECTION: (Usually appears 36-48 hours after surgery) Increased temperature (101 degrees Fahrenheit or higher) Redness or swelling Increased pain Foul odor or drainage. If you have any questions, please call your doctor at the number listed on your follow up instructions. Follow all instructions given to you by your physician. Please complete and return the survey you will be receiving in the mail to help us better serve our patients. Form: 1524 ([id number]) R: 02/09 Additional Information VACCINATE! IT SAVES LIVES! Members of the community who have not yet received the COVID-19 vaccine and would like to receive it can visit one of [facility] vaccine clinics. There are many vaccine clinic locations within the [facility]. For locations and available times, please visit https://gettheshot.coronavirus.[place].gov/. It is important to note that some COVID mobile vaccine clinics are held outdoors and may be canceled in rainy or stormy conditions. To learn more about pediatric vaccinations (ages 5-11), we invite you to visit the [facility] webpage. https://www.[facility].org/pages/1373-Zkbtr-Gdvezzfeqrq-Uamjeqjwkb-Ixtvt-Pfs stions.htmlTo learn more about the COVID-19 vaccine, we invite you to visit the CDC website for a list of frequently asked questions.https://www.cdc.gov/coronavirus/2019-ncov/vaccines/faq.html [facility] Patient Portal Access Instructions: Stay connected with your healthcare team and access your personal medical information anytime with the [facility] Patient Portal. Please follow the directions below to create your [facility] [employer] account: 1.Access the email account you provided upon registration to the hospital/physician office.2.Look for an invitation email from [facility].3.Open the email and access the invitation link: AcceptInvitation to [facility].4.Fill in the required quintero to create your account. To access your account, visit [email or web address]. Click the blue button labeled Access Patient Portal and then log in with the username and password that you created in the steps above. You will be able to view your test results, lab results, a summary of your visits, upcoming appointments and more. There is also a convenient messaging option where you can send secure messages to your p rovider. In addition, you will have the ability to download any documents or summaries to your computer and/or send the information securely to a physician. Remember that your healthcare information is confidential, so carefully consider who you will allowto register on the [facility] [employer] Patient Portal for access to your information. You can also access the [facility] on the [facility] [facility]. Simply click on Patient Portal and then log into your account. If you would like to receive a full copy of your medical records, please contact the [facility] Medical Records Department by calling [phone], Friday through Friday between 8 a.m. and 4:30 p.m. HOW TO SAFELY DISPOSE OF PRESCRIPTION MEDICATIONS Please use one of the following methods to safely dispose of your unused medications. 1.Use a drug disposal kit: the drug disposal pouch allows you to safely discard your old and unuseddrugs. Ask your nurse to give you one when you are discharged.2.Visit a local take-back location: Many local pharmacies and police departments have programs that collect old and unwanted prescriptiondrugs. Call your local pharmacy or go to http://bit.ly/0R9Lf3t to find one close to you.3.Make use of household items: Use cat litter or old coffee grounds to dispose medications if other options arenot available. Mix your drugs with these household products, seal them in an airtight container andthrow it into the garbage. Call [facility]: [phone] to be sure your drugs can be disposed of in this way. Some medicines may require a different approach.4.Never flush your medications down the toilet. IF YOU HAVE BEEN PRESCRIBED AN OPIOID FOR PAIN If you have been prescribed an opioid (such as hydrocodone, oxycodone or morphine), it is critical to understand the possible side effects and risks of opioid pain medications. Even when taken as directed, opioids can have several side effects including: Tolerance, meaning you might need to take more of a medication for the same pain relief. Nausea, vomiting and/or constipation. Sleepiness, dizziness, dry mouth, confusion, depression or itching. Physical dependence, meaning you have withdrawal symptoms when a medication is stopped, can develop within a few days. KNOW YOUR RESPONSIBILITIES It is important to know exactly how much and how often to take the opioid pain medications you are prescribed. Never take opioids in higher amounts or more often than prescribed. Do not combine opioids with alcohol or other drugs that cause drowsiness, such as benzodiazepines, also known as benzos, including diazepam and alprazolam, muscle relaxants or sleep aids. Never sell or share prescription opioids. This is illegal. Store opioids in a secure place and out of reach of others (including children, family, friends and visitors). The last page of this document has been signed and retained as a CHART COPY. Signatures Patient Education Materials Radiology- Nephrostomy/Nephroureteral Tube Exchange 12/26/2022(CUSTOM) 1-[facility] Discharge Instructions Template (08/2018)(CUSTOM) Medication Leaflets My discharge plan and instructions have been reviewed and explained to me and I,LALY NAVAS understand my current condition and have read and understand these discharge instructions. I have received a written copy of the plan/instructions. If I have questions, I am aware that I should contact my doctor. 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 Name: LALY NAVAS /Sex: 1990 Female Med Rec #: [id number] Physician: Financial #: [id number] Pt. Type: S Room/Bed: [facility] Admit/Disch: 07/24/23 09:40:57 - Institution: Allergies identified in patient's electronic medical record at time of printing on 07/24/23 Entry 1 Entry 2 Substance Oranges penicillin Reaction Type Allergy Allergy Last Modified By: Shoshana Renteria RN, Kimberly V. RN 07/21/23 10:11:02 07/21/23 10:10:45 Case Attendance- IR Entry 1 Entry 2 Entry 3 Case Attendee MADELINE APARICIO MD [facility] Tracie N RN LITIGATION ATTORNEY ASSOCIATE-SCALEMAKER Role Performed Primary Surgeon SCALEMAKER [employer] Professor 1 Details Time In 07/24/23 12:59:00 07/24/23 12:25:00 07/24/23 12:25:00 Time Out 07/24/23 13:49:00 07/24/23 13:58:00 07/24/23 13:58:00 Procedure/Preference IR Nephrostomy Tube IR Nephrostomy Tube IR Nephrostomy Tube Card Change Lt Guide SN, IR Change Lt Guide SN, IR Change Lt Guide SN, IR Central Venous Catheter Central Venous Catheter Central Venous Catheter Stripping SN Stripping SN Stripping SN Last Modified By: Cristina Simons RN Cristina Simons RN, Tracie N RN 07/24/23 13:58:17 07/24/23 13:58:17 07/24/23 13:58:17 Entry 4 Entry 5 Case Attendee Sam Granger Rad Tech L Amanda K Role Performed Scrub Technologist Circulating Technologist Details Time In 07/24/23 12:25:00 07/24/23 12:25:00 Time Out 07/24/23 13:58:00 07/24/23 13:58:00 Procedure/Preference IR Nephrostomy Tube IR Nephrostomy Tube Card Change Lt Guide SN, IR Change Lt Guide SN, IR Central Venous Catheter Central Venous Catheter Stripping SN Stripping SN Last Modified By: Cristina Simons RN Cristina Simons RN 07/24/23 13:58:17 07/24/23 13:58:17 Radiology Procedures- IR Entry 1 Entry 2 Procedure/Preference IR Nephrostomy Tube IR Central Venous Card Change Lt Guide SN Catheter Stripping SN Modifiers Actual Procedure IR NEPH TUBE CHANGE LEFT IR Central venous Catheter Stripping Actual Procedure Continued Primary Procedure No Yes Primary Surgeon MADELINE APARICIO MD, MITRYAN MD Anesthesia/Sedation General General Type Additional Procedure Times Start 07/24/23 12:59:00 07/24/23 12:59:00 Stop 07/24/23 13:49:00 07/24/23 13:49:00 Specialty Service SN Radiology Procedure SN Radiology Procedure EBL 0 mL 3 Last Modified By: Sam Henry Rad Tech Amanda K 07/24/23 Lida Piper 07/24/23 14:14:35 14:14:10 Radiology Procedure Details - IR Entry 1 Radiology Sedation Case Times Sedation Total Time 0 minutes Radiology - Fluid/Drainage Radiology Contrast Contrast Used? Yes Dose 10 mL Medication OMNIPAQUE 300 50ML 10/PK Y-530 [facility] 5528-1249-84 Radiology Flouroscopy Fluoroscopy Used? Yes Fluoro Dose (mGy) 14.16 Fluoro Time 1.5 dilma Radiology Local Local Used? Yes Local Type: lidocaine Local Dose 10 cc Radiology Procedure Site Site/Location Left back Site Condition No complications Dressing Type Gauze sponge 4 X 4, Technologist Notes 10Fr x 35cm M Drain Transparent, Bandaids Last Modified By: Sam Henry 07/24/23 14:15:48 General Case Data - IR Entry 1 Case Information Room IR 17 Case Level IR Level 3 Wound Class None Specialty SN Radiology Procedure ASA Class 3 Diagnosis Preop Diagnosis Neph tube in place Postop Same As Preop Yes Postop Diagnosis Neph tube in place Last Modified By: Cristina Simons RN 07/24/23 13:58:48 Procedure Case Times- IR Entry 1 Patient In Procedure Patient In OR 07/24/23 12:25:00 Patient Out of OR 07/24/23 13:58:00 Procedure Start/Stop Procedure Start Time 07/24/23 12:59:00 Procedure Stop Time 07/24/23 13:49:00 Last Modified By: Cristina Simons RN 07/24/23 13:58:16 Immediate Post Procedure Note - IR Entry 1 Immediate Post Yes Findings successful LT PCNU to Procedure Note PCN conversion and succ displayed for port cath tip stripping Physician to review with resolution of fibrin sheath. Closure Technique Closure Technique Other than Primary Last Modified By: Cristina Simons RN 07/24/23 13:50:35 Immediate Post Procedure Note - IR Signed By: MADELINE APARICIO MD 07/24/23 13:49 Allergy Information- IR Entry 1 Allergies Reviewed? Yes Allergies Reviewed Patient With Last Modified By: Cristina Simons RN 07/24/23 12:45:03 Radiology Protocols/Time Out- IR Entry 1 Preprocedure Clinician Verifies Correct patient ID When Clinically Confirmation of correct using name & date Indicated side(s) and site(s), or MRN, Accurate Correct diagnostic and procedure, complete radiology tests Informed Consent, H & P available, Required update immediately blood products, prior to procedure, if implants, devices applicable and/or special equipment available, Preop antibiotics sent with patient/available in OR OR/Procedure Room/Bedside Time 07/24/23 12:59:00 Clinician Verifies Correct patient identity including EMR & records using name and date or medical record number, Accurate procedure consent form, Correct patient position, Necessary equipment is available, Anticipated non-routine events with surgical team (case duration, estimated blood loss, patient specific concerns)., Parada patient factors for recovery and management identified with surgical team. When Applicable Confirmation correct Team Members MADELINE APARICIO MD, side and site marked, Present for Time Out DENISE BUCIO Relevant images and LITIGATION ATTORNEY ASSOCIATE-Kristyn ESPINOZA, results are properly Cristina Hitchcock RN, Bárbara, johnny and Systems Integrator Leatha Boyce, appropriately Elaine Systems IntegratorLida Duong Confirm/obtain preop antibiotic order., Alcohol based prep dry, Double verification of sterility indicators complete Instrument Sterility Procedure IR Nephrostomy Tube Change Lt Guide SN, IR Central Venous Catheter Stripping SN Last Modified By: Cristina Simons RN 07/24/23 13:29:43 Skin Prep- IR Entry 1 Entry 2 Procedure IR Nephrostomy Tube IR Central Venous Change Lt Guide SN Catheter Stripping SN Skin Prep Prep Area Back Chest, Groin Side Left Right By Sam Granger PonceSam ochoa Prep Agents Betadine Solution Chloraprep Hair Removal Method N/A Clipped Last Modified By: Sam Henry Rad Tech Amanda K 07/24/23 Lida Piper 07/24/23 14:12:39 14:12:39 Patient Positioning- IR Entry 1 Entry 2 Procedure IR Nephrostomy Tube IR Central Venous Change Lt Guide SN Catheter Stripping SN Additional Information Body Position OP Prone OP Supine Left Arm Position Right Arm Position Left Leg Position Right Leg Position Feet Uncrossed? Yes Yes Pressure Points Yes Yes Checked Positioning Devices Table Type Date and Time Last Modified By: Sam Henry Rad Tech Amanda K 07/24/23 Lida Piper 07/24/23 14:13:15 14:13:15 Radiology Procedure Plan - IR Entry 1 Radiology - Nursing Care Plan Outcome Statement The patient Outcome Statement The patient receives demonstrates knowledge Cont. appropriate of the expected medication(s), safely responses to the administered during the operative/invasive perioperative/invasive procedure., The period., The patient is patient's value system, free from signs and lifestyle, ethnicity, symptoms of injury and culture are caused by extraneous considered, respected, objects (equipment, and incorporated in the instrumentation, perioperative plan of sponges, or sharps). care., The patient is free from signs and symptoms of infection. Radiology - Action Plan Outcomes Met? Yes Mottler Operator Cristina Simons RN Completing Procedure Plan Last Modified By: Cristina Simons RN 07/24/23 12:48:58 Case Comments Finalized By: Sam Henry Document Signatures Signed By: Cristina Simons RN 07/24/23 13:58 Sam Henry 07/24/23 14:15 Sam Henry 07/24/23 14:16 [id number] + Plan noteExtracted from: Title:IR Pre-Procedure H&P Update Author:MILAGRO SANCHEZ PA-C Date:07/24/23 IR PREPROCEDURE H&P UPDATE IF A HISTORY AND PHYSICAL EXAMINATION HAS BEEN COMPLETED PRIOR TO ADMISSION TO THE HOSPITAL, AN UPDATED EXAMINATION MUST BE COMPLETED AND DOCUMENTED WITHIN 24 HOURS AFTER ADMISSION OR REGISTRATION BUT BEFORE A SURGICAL PROCEDURE. I have examined the patient, reviewed the H&P, and there are no changes unless noted below: _ The most recent H&P/Office Note was performed on 06/26/23 and can be found in the [place] [facility] Records ([facility]). Milagro Mcgarry PA-C Interventional Radiology IR Dept [id number] Available on [facility] Future Appointments Appointment Date:07/30/2023 11:30:00 AM Scheduled Provider:FLIP MARTIN MD Location:[facility] Appointment Type:SO OV Follow Up Appointment Date:07/31/2023 03:00:00 PM Scheduled Provider:OLE PACE MD Location:[place] [facility] Appointment Type:PALL New Patient Appointment Date:09/04/2023 01:00:00 PM Scheduled Provider: Location:IR Appointment Type:IR Nephrostomy Tube Change Lt Guide Future Scheduled Tests Laboratory* Pathology Salvage Mend Worker Request 05/15/23 * Urinalysis 02/14/23 Radiology* IR Neph Cath-Neph Ureter W/Guide Left 08/02/22 * IR Neph Cath-Neph Ureter W/Guide Left 09/02/22 * IR Neph Cath-Neph Ureter W/Guide Left 10/02/22 * IR Neph Cath-Neph Ureter W/Guide Left 11/02/22 * IR Neph Cath-Neph Ureter W/Guide Left 12/03/22 * IR Neph Cath-Neph Ureter W/Guide Left 12/31/22 * IR Neph Cath-Neph Ureter W/Guide Left 01/31/23 * IR Neph Cath-Neph Ureter W/Guide Left 03/02/23 * IR Neph Cath-Neph Ureter W/Guide Left 04/02/23 * IR Neph Cath-Neph Ureter W/Guide Left 05/02/23 * IR Neph Cath-Neph Ureter W/Guide Left 06/02/23 * IR Neph Cath-Neph Ureter W/Guide Left 06/30/23 * BD Bone Density DEXA Axial Skeleton 05/15/23 * IR Nephrostomy Tube Change Lt Guide 09/04/23 * IR Nephrostomy Tube Change Lt Guide 07/22/23 * IR Nephrostomy Tube Change Lt Guide 08/21/23 * IR Nephrostomy Tube Change Lt Guide 09/21/23 * IR Nephrostomy Tube Change Lt Guide 10/21/23 * IR Nephrostomy Tube Change Lt Guide 11/21/23 * IR Nephrostomy Tube Change Lt Guide 12/22/23 * IR Nephrostomy Tube Change Lt Guide 01/20/24 * IR Nephrostomy Tube Change Lt Guide 02/20/24 * IR Nephrostomy Tube Change Lt Guide 03/21/24 * IR Nephrostomy Tube Change Lt Guide 04/21/24 * IR Nephrostomy Tube Change Lt Guide 05/21/24 * IR Nephrostomy Tube Change Lt Guide 06/21/24 [facility] 09-21-2023 Note* Cristina Simons RN: SIGN Cristina Simons RN: SIGN, AUTHOR Cristina Simons RN: AUTHOR, AUTHOR, PERFORM, SIGN Sam Henry K: MY, AUTHOR Sam Henry K: AUTHOR Event Display: IR Procedure Record Authored Date: IR Procedure Record Summary Primary Physician: MADELINE APARICIO MD Finalized Date/Time: 07/24/23 14:16:14 Pt. Name: ILEANA NAVASAusten Boyce /Sex: 1990 Female Med Rec #: [id number] Physician: Financial #: [id number] Pt. Type: S Room/Bed: [facility] Admit/Disch: 07/24/23 09:40:57 - Institution: Allergies identified in patient's electronic medical record at time of printing on 07/24/23 Entry 1 Entry 2 Substance Oranges penicillin Reaction Type Allergy Allergy Last Modified By: Shoshana Renteria RN, Kimberly V. RN 07/21/23 10:11:02 07/21/23 10:10:45 Case Attendance- IR Entry 1 Entry 2 Entry 3 Case Attendee MADELINE APARICIO MDDENISE Tracie N RN LITIGATION ATTORNEY ASSOCIATE-SCALEMAKER Role Performed Primary Surgeon SCALEMAKER [employer] Professor 1 Details Time In 07/24/23 12:59:00 07/24/23 12:25:00 07/24/23 12:25:00 Time Out 07/24/23 13:49:00 07/24/23 13:58:00 07/24/23 13:58:00 Procedure/Preference IR Nephrostomy Tube IR Nephrostomy Tube IR Nephrostomy Tube Card Change Lt Guide SN, IR Change Lt Guide SN, IR Change Lt Guide SN, IR Central Venous Catheter Central Venous Catheter Central Venous Catheter Stripping SN Stripping SN Stripping SN Last Modified By: Cristina Simons RN, Tracie N RN Aller, Tracie N RN 07/24/23 13:58:17 07/24/23 13:58:17 07/24/23 13:58:17 Entry 4 Entry 5 Case Attendee Sam Granger Rad Tech Austen Piper Role Performed Scrub Technologist Circulating Technologist Details Time In 07/24/23 12:25:00 07/24/23 12:25:00 Time Out 07/24/23 13:58:00 07/24/23 13:58:00 Procedure/Preference IR Nephrostomy Tube IR Nephrostomy Tube Card Change Lt Guide SN, IR Change Lt Guide SN, IR Central Venous Catheter Central Venous Catheter Stripping SN Stripping SN Last Modified By: Cristina Simons RN, Tracie N RN 07/24/23 13:58:17 07/24/23 13:58:17 Radiology Procedures- IR Entry 1 Entry 2 Procedure/Preference IR Nephrostomy Tube IR Central Venous Card Change Lt Guide SN Catheter Stripping SN Modifiers Actual Procedure IR NEPH TUBE CHANGE LEFT IR Central venous Catheter Stripping Actual Procedure Continued Primary Procedure No Yes Primary Surgeon MADELINE APARICIO MD, MITRYAN MD Anesthesia/Sedation General General Type Additional Procedure Times Start 07/24/23 12:59:00 07/24/23 12:59:00 Stop 07/24/23 13:49:00 07/24/23 13:49:00 Specialty Service SN Radiology Procedure SN Radiology Procedure EBL 0 mL 3 Last Modified By: Sam Henry Systems Integrator Lida Piper 07/24/23 Lida Piper 07/24/23 14:14:35 14:14:10 Radiology Procedure Details - IR Entry 1 Radiology Sedation Case Times Sedation Total Time 0 minutes Radiology - Fluid/Drainage Radiology Contrast Contrast Used? Yes Dose 10 mL Medication OMNIPAQUE 300 50ML 10/PK Y-530 [facility] [id number] Radiology Flouroscopy Fluoroscopy Used? Yes Fluoro Dose (mGy) 14.16 Fluoro Time 1.5 dilma Radiology Local Local Used? Yes Local Type: lidocaine Local Dose 10 cc Radiology Procedure Site Site/Location Left back Site Condition No complications Dressing Type Gauze sponge 4 X 4, Technologist Notes 10Fr x 35cm M Drain Transparent, Bandaids Last Modified By: Sam Henry 07/24/23 14:15:48 General Case Data - IR Entry 1 Case Information Room IR 17 Case Level IR Level 3 Wound Class None Specialty SN Radiology Procedure ASA Class 3 Diagnosis Preop Diagnosis Neph tube in place Postop Same As Preop Yes Postop Diagnosis Neph tube in place Last Modified By: Cristina Simons RN 07/24/23 13:58:48 Procedure Case Times- IR Entry 1 Patient In Procedure Patient In OR 07/24/23 12:25:00 Patient Out of OR 07/24/23 13:58:00 Procedure Start/Stop Procedure Start Time 07/24/23 12:59:00 Procedure Stop Time 07/24/23 13:49:00 Last Modified By: Cristina Simons RN 07/24/23 13:58:16 Immediate Post Procedure Note - IR Entry 1 Immediate Post Yes Findings successful LT PCNU to Procedure Note PCN conversion and succ displayed for port cath tip stripping Physician to review with resolution of fibrin sheath. Closure Technique Closure Technique Other than Primary Last Modified By: Cristina Simons RN 07/24/23 13:50:35 Immediate Post Procedure Note - IR Signed By: MADELINE APARICIO MD 07/24/23 13:49 Allergy Information- IR Entry 1 Allergies Reviewed? Yes Allergies Reviewed Patient With Last Modified By: Cristina Simons RN 07/24/23 12:45:03 Radiology Protocols/Time Out- IR Entry 1 Preprocedure Clinician Verifies Correct patient ID When Clinically Confirmation of correct using name & date Indicated side(s) and site(s), or MRN, Accurate Correct diagnostic and procedure, complete radiology tests Informed Consent, H & P available, Required update immediately blood products, prior to procedure, if implants, devices applicable and/or special equipment available, Preop antibiotics sent with patient/available in OR OR/Procedure Room/Bedside Time 07/24/23 12:59:00 Clinician Verifies Correct patient identity including EMR & records using name and date or medical record number, Accurate procedure consent form, Correct patient position, Necessary equipment is available, Anticipated non-routine events with surgical team (case duration, estimated blood loss, patient specific concerns)., Parada patient factors for recovery and management identified with surgical team. When Applicable Confirmation correct Team Members MADELINE APARICIO MD, side and site marked, Present for Time Out DENISE BUCIO Relevant images and LITIGATION ATTORNEY ASSOCIATE-Kristyn ESPINOZA, results are properly Cristina Hitchcock RN, Bárbara, labeled and Systems IntegratorMendel Boyce, appropriately Elaine Systems IntegratorLida Duong Confirm/obtain preop antibiotic order., Alcohol based prep dry, Double verification of sterility indicators complete Instrument Sterility Procedure IR Nephrostomy Tube Change Lt Guide SN, IR Central Venous Catheter Stripping SN Last Modified By: Cristina Simons RN 07/24/23 13:29:43 Skin Prep- IR Entry 1 Entry 2 Procedure IR Nephrostomy Tube IR Central Venous Change Lt Guide SN Catheter Stripping SN Skin Prep Prep Area Back Chest, Groin Side Left Right By Sam Granger Rad Tech Kelli L L Prep Agents Betadine Solution Chloraprep Hair Removal Method N/A Clipped Last Modified By: Sam Henry Rad Tech Amanda K 07/24/23 Lida K 07/24/23 14:12:39 14:12:39 Patient Positioning- IR Entry 1 Entry 2 Procedure IR Nephrostomy Tube IR Central Venous Change Lt Guide SN Catheter Stripping SN Additional Information Body Position OP Prone OP Supine Left Arm Position Right Arm Position Left Leg Position Right Leg Position Feet Uncrossed? Yes Yes Pressure Points Yes Yes Checked Positioning Devices Table Type Date and Time Last Modified By: Sam Henry Rad Tech Amanda K 07/24/23 Lida K 07/24/23 14:13:15 14:13:15 Radiology Procedure Plan - IR Entry 1 Radiology - Nursing Care Plan Outcome Statement The patient Outcome Statement The patient receives demonstrates knowledge Cont. appropriate of the expected medication(s), safely responses to the administered during the operative/invasive perioperative/invasive procedure., The period., The patient is patient's value system, free from signs and lifestyle, ethnicity, symptoms of injury and culture are caused by extraneous considered, respected, objects (equipment, and incorporated in the instrumentation, perioperative plan of sponges, or sharps). care., The patient is free from signs and symptoms of infection. Radiology - Action Plan Outcomes Met? Yes Mottler Operator Cristina Simons RN Completing Procedure Plan Last Modified By: Cristina Simons RN 07/24/23 12:48:58 Case Comments <None> Finalized By: Sam Henry Document Signatures Signed By: Cristina Simons RN 07/24/23 13:58 Sam Henry 07/24/23 14:15 Sam Henry 07/24/23 14:16 [facility] 09-21-2023 History and physical note IR PREPROCEDURE H&P UPDATE IF A HISTORY AND PHYSICAL EXAMINATION HAS BEEN COMPLETED PRIOR TO ADMISSION TO THE HOSPITAL, AN UPDATED EXAMINATION MUST BE COMPLETED AND DOCUMENTED WITHIN 24 HOURS AFTER ADMISSION OR REGISTRATION BUT BEFORE A SURGICAL PROCEDURE. I have examined the patient, reviewed the H&P, and there are no changes unless noted below: _ The most recent H&P/Office Note was performed on 06/26/23 and can be found in the [place] [facility] ([facility] Milagro Mcgarry PA-C Interventional Radiology [facility] [id number] [facility] Digitally Signed by MILAGRO MCGARRY PA-C on 07/24/2023 12:20 PM Digitally Signed by MADELINE APARICIO MD on 07/24/2023 05:58 PM [facility] [id number] Anesthesiology Consult note Patient: LALY NAVAS Age: 32 years Sex: Female : 1990 Associated Diagnoses: None Author: MARIN COTE MD Preoperative Information Time of last food or liquid consumption: 07/23/2023 18:00:00 Anesthesia history Patient's history: negative. Family's history: negative. Health Status Allergies: Allergic Reactions (All) Severity Not Documented Oranges- Tongue swelling and difficulty breathing. Penicillin- Hives. Canceled/Inactive Reactions (All) Severity Not Documented Codeine- No reactions were documented. OxyCODONE- Nausea and vomitting., Allergies (2) ActiveReaction OrangesTongue swelling penicillinHives Current medications: (Selected) Inpatient Medications Ordered NS 1,000 mL: 20 mL/hr, Intravenous ciprofloxacin: 400 mg, 200 mL, 200 mL/hr, IV Piggyback, PREOP pharm lidocaine 1% preservative-free injectable solution: 2.5 mg, 0.25 mL, Intradermal, prep pharm lidocaine 1% preservative-free injectable solution: 2.5 mg, 0.25 mL, Intradermal, prep pharm Prescriptions Prescribed Ativan 1 mg oral tablet: 1 mg, 1 tab(s), Oral, q8h, for 9 day(s), 27 tab(s), 0 Refill(s) Calcium Plus Vitamin D3 600 mg-12.5 mcg (500 intl units) oral capsule: 2 cap(s), Oral, qDay, with food, 120 EA, 0 Refill(s) OxyContin 15 mg oral tablet, extended release: 15 mg, 1 tab(s), Oral, BID, 60 tab(s), 0 Refill(s) gabapentin 300 mg oral capsule: 1 cap(s), Oral, qHS, for 30 day(s), 30 cap(s), 0 Refill(s) mirtazapine 15 mg oral tablet: 15 mg, 1 tab(s), Oral, qDay, 30 tab(s), 0 Refill(s) oxyCODONE 5 mg oral tablet ( IMMEDIATE release ): 15 mg, 3 tab(s), Oral, q4hr, for 7 day(s), PRN: as needed for pain, 126 tab(s), 0 Refill(s) Documented Medications Documented ondansetron 4 mg oral tablet: 4 mg, 1 tab(s), Oral, q6h, PRN: Nausea/Vomiting, Medications (2) Active Scheduled: (1) ciprofloxacin PMX 400 mg 200 mL, IV Piggyback, PREOP pharm Continuous: (1) NS (0.9% nacl) 1,000 mL 1,000 mL, Intravenous, 20 mL/hr PRN: (0) Problem list: Medical Left flank pain / SNOMED CT 288598070 / Confirmed Nausea and vomiting / SNOMED CT 67064159 / Confirmed Dehydration / SNOMED CT 38704637 / Confirmed Asthma / SNOMED CT 029666769 / Confirmed Obstructive uropathy / SNOMED CT 78892982 / Confirmed Acute kidney injury / SNOMED CT 80779437 / Confirmed Moderate protein-calorie malnutrition / SNOMED CT 947798745 / Confirmed Port-A-Cath in place / SNOMED CT 8113827655 / Confirmed History of chemotherapy / SNOMED CT 2847162637 / Confirmed History of radiation therapy / SNOMED CT 2891943649 / Confirmed Complicated UTI (urinary tract infection) / SNOMED CT 294256412 / Confirmed Anxiety / SNOMED CT 94104327 / Confirmed DVT prophylaxis / SNOMED CT 546007256 / Confirmed Decreased appetite / SNOMED CT 840113290 / Confirmed Cervical cancer / SNOMED CT 010347708 / Confirmed Nephrostomy status / SNOMED CT 559244752 / Confirmed Premature menopause / SNOMED CT 1368834771 / Confirmed Pyelonephritis / SNOMED CT 13314595 / Confirmed Bilateral flank pain / SNOMED CT 673089477 / Confirmed Cancer related pain / SNOMED CT 8789162381 / Confirmed, Active Problems (25) Acute kidney injury Anxiety Asthma Bilateral flank pain Bradycardia Cancer related pain Cervical cancer Complicated UTI (urinary tract infection) Contact lenses COVID-19 Decreased appetite Dehydration DVT prophylaxis Fall Glasses History of chemotherapy History of radiation therapy Left flank pain Moderate protein-calorie malnutrition Nausea and vomiting Nephrostomy status Obstructive uropathy Port-A-Cath in place Premature menopause Pyelonephritis Histories Past Medical History: Resolved ESBL (extended spectrum beta-lactamase) producing bacteria infection (5401211325): Onset on 02/23/2023 at 32 years. Resolved on 05/07/2023 at 32 years. ESBL (extended spectrum beta-lactamase) producing bacteria infection (6577067810): Onset on 08/09/2022 at 31 years. Resolved on 01/02/2023 at 32 years. Comments: 01/02/2023 EST 10:02 JAMAL Holloway Removed ESBL disease alert from 08/2022 per infection control protocol on 01/02/23. Mass of cervix (851828720): Resolved. Chronic kidney disease, stage 3 (moderate) (5936310419): Resolved. Hydronephrosis of left kidney (09711200): Resolved. Cervicitis (055541750): Resolved. Encounter for antineoplastic chemotherapy (529759699): Resolved. Tinnitus (637727865): Resolved. History of COVID-19 (0105966579): Resolved. Family History: Cancer Sister COPD - Chronic obstructive pulmonary disease Mother Kidney stone Mother Asthma Mother Breast cancer Mother Hypertension Mother Heart disease Mother Substance abuse Father Alcohol abuse Father Stroke Grandparent Father Heart attack Mother Diabetes Grandparent Procedure history: Nephrostomy with tube drainage (28550442) in the month of 07/2023 at 32 Years. Comments: 06/13/2020 10:09 JAMAL Guaman left Nephrostomy with tube drainage (45372758) on 01/10/2021 at 30 Years. Cannulation of Portacath (019153600) in 2020 at 30 Years. Comments: 06/13/2020 10:09 JAMAL Guaman right JJ stent ([id number]) on 11/15/2020 at 29 Years. Radiation (037117105) in the month of 06/2020 at 29 Years. Comments: 06/26/2020 6:12 GINNY Burton RN Mayi A via tandems and oviod X2 Cervical biopsy ([id number]) in 2019 at 29 Years. Comments: 04/12/2020 18:25 Eri Conte RN pt states she had a cervical biopsy done on 04/07/2020 at [facility] for a cervical mass Tumor cells, benign ([id number]) in 2001 at 11 Years. 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 done at [facility] in [place] Social History Social & Psychosocial Habits Alcohol 07/21/2023Risk Assessment: Denies Alcohol Use 07/21/2023 Use: Past Type: Beer Frequency: 1-2 times per week Substance Abuse 07/21/2023 Use: Never 07/21/2023Risk Assessment: Denies Substance Abuse Tobacco 07/21/2023 Tobacco Use: Former smoker, quit more Exposure to Tobacco Smoke Lives in non-smoking home Started at age: 19 Years Stopped at age: 32 Years Smokeless tobacco use: Never 07/21/2023 Tobacco Use: Former smoker, quit more Type: Cigarettes Tobacco use per day: 10 Number of years: 10 Started at age: 19 Years Stopped at age: 32 Years Previous treatment: None Ready to change: Yes Home/Environment 07/21/2023Risk Assessment: No Risk 07/21/2023 Domestic Concerns None Living situation: Home/Independent Safe place to go: Yes Lives In Mobile home Current Home Treatments None Special Services and Community Resources None Financial concerns: No Marital Status of Patient if Patient Independent Adult: Unmarried Nutrition/Health 07/21/2023 Type of diet: Regular Appetite Fair Eating Difficulties None Caffeine intake amount: 1 can pop per day 07/21/2023Risk Assessment: No Risk Sexual 07/21/2023 Sexually active: Yes First active at age: 18 Years Current partners: 1 Number of lifetime partners: 7 Self described orientation: Straight or heterosexual Other contraceptive use: condoms History of sexual abuse: No What is your current gender identity? (Check all that apply) Identifies as female . Physical Examination Vital Signs 07/24/2023 10:08 EDT Temperature Temporal Artery 36.5 DegC Apical Heart Rate 100 bpm Respiratory Rate 18 br/min Systolic Blood Pressure Non-Invasive 110 mmHg Diastolic Blood Pressure Non-Invasive 83 mmHg Vital Signs(last 24 hrs) Last Charted Resp Rate 18 br/min (JUL 24 10:08) [id number] mmHg (JUL 24 10:08) DBP83 mmHg (JUL 24 10:08) Measurements from flowsheet : Measurements 07/24/2023 10:08 EDT Height 167.6 cm Height in inches 66 inch(es) Admission Weight 67.8 kg Weight Lbs 149.2 lb Weight Method Actual [place] Body Weight 59.26 kg Type of Scale Used Weigh bed Admission Body Mass Index 24.14 m2 Pain assessment: Pain Assessment 07/24/2023 10:08 EDT Primary Pain Location Vagina Primary Pain Intensity 8 Primary Pain Quality Burning, Pressure Primary Pain Nonverbal Response Nods Yes Pain Scale Type 0-10 Pain scale . General: Alert and oriented. Airway: Normal temporomandibular joint mobility, Nares patent, Trachea midline. Mallampati classification: II (soft palate, fauces, uvula visible). Head: Normocephalic, Atraumatic. Dentition Evaluation: Intact, Own teeth. Respiratory: Lungs are clear to auscultation. Cardiovascular: Normal rate, Regular rhythm. Neurologic: Alert, Oriented. Review / Management Results review: No qualifying data available , Lab results 07/24/2023 10:17 EDT SN - Preop - CTm Pt in SDS Room 07/24/2023 10:00 SN - Preop - CTm Pt Ready for OR/Proced 07/24/2023 10:16 07/24/2023 10:14 EDT Antecubital Right 07/24/2023 22 gauge Peripheral IV Activity: Insert new site Peripheral IV Dressing Condition: Clean, Dry, Intact Peripheral IV Dressing Activity: Applied Peripheral IV Line Status/Patency: Flushes easily Peripheral IV Site Condition: No complications Peripheral IV Number of Attempts: 1 07/24/2023 10:08 EDT Height 167.6 cm Height in inches 66 inch(es) Admission Weight 67.8 kg Weight Lbs 149.2 lb Weight Method Actual [place] Body Weight 59.26 kg Type of Scale Used Weigh bed Admission Body Mass Index 24.14 m2 Temperature Temporal Artery 36.5 DegC Apical Heart Rate 100 bpm Respiratory Rate 18 br/min Systolic Blood Pressure Non-Invasive 110 mmHg Diastolic Blood Pressure Non-Invasive 83 mmHg Primary Pain Location Vagina Primary Pain Intensity 8 Primary Pain Quality Burning, Pressure Primary Pain Nonverbal Response Nods Yes Pain Scale Type 0-10 Pain scale Heart Rhythm Regular Respirations Unlabored Respiratory Pattern Regular All Lobes Breath Sounds Clear Oxygen Therapy Room air Oxygen Saturation 96 % Abdomen Description Non-distended, Soft Bowel Sounds All Quadrants Present Urinary Elimination Voiding, no difficulties Urine Color Yellow Urine Description Clear Urinary Elimination Devices Nephrostomy Skin Temperature Warm Skin Description Alianza, Dry Skin Integrity Intact Characteristics of Speech Clear Level of Consciousness Alert Strength All Extremities Strong Tone All Extremities Normal Sensation All Extremities Intact Affect/Behavior Appropriate, Calm, Cooperative Orientation Oriented x 4 Standard Safety ID band on, Allergy Band on, Call device within reach, Bed in low position, Wheels locked, Upper/Half-Length side-rails up, Phone within reach, personal items within reach, Toileting device within reach, Safety level maintained, Non-Slip footwear Sodium Chloride 0.9% Begin Bag 1,000 mL mL 07/24/2023 10:06 EDT Individuals Taught Patient Learning Readiness Willing to learn Barriers to Learning None evident Teaching Method Explanation, Printed materials Teaching Evaluation Verbalizes/Nonverbally indicates understanding Surgical Site Infection Prevention SSI FAQ provided, Hand hygiene Infection Prevention Teaching Evaluation Verbalizes/Nonverbally indicates understanding Safety Measures Education Fall prevention, Call light use, Non-slip footwear use Safety Teaching Evaluation Verbalizes/Nonverbally indicates understanding 07/24/2023 10:04 EDT IV Present Present Violence Risk Confused No Violence Risk Irritable No Violence Risk Boisterous No Violence Risk Verbal Threats No Violence Risk Physical Threats No Violence Risk Attacking Objects No Violence Risk Predictor Score 0 Allergies Yes Patient Dressed In Hospital gown History & Physical Update On Chart No History & Physical On Chart No Belongings At Bedside Cell phone, Necklace, Pants, Purse, Rings, Shirt, Shoes, Undergarments, Wallet NPO Status Maintained Allergy Band on and Verified Yes Patient ID Band on and Verified Yes Last Fluid Intake 07/23/2023 23:30 Last Food Intake 07/23/2023 20:00 07/24/2023 10:01 EDT Privacy Restrictions Requested None Sleep Apnea Snore No Sleep Apnea Tired Yes Sleep Apnea Obstruction Yes Sleep Apnea Pressure No Sleep Apnea BMI No Sleep Apnea Neck No Sleep Apnea Score 2 Admission Note-Nursing Patient History PreTest (Modified) 07/24/2023 9:27 EDT CSummarmichaela MONTEJOUMMARY 07/24/2023 9:27 EDT CSummary CSUMMARY 07/23/2023 11:58 EDT Message PAC Team Auth Message 07/23/2023 0:00 EDT Precert Scanned NEPH CATH EXCHANGE AUTH . Assessment and Plan [employer] Anesthesiologists (ASA) physical status classification: Class III. Anesthetic Preoperative Plan Anesthetic technique: General. Induction: intravenously. Maintenance airway: Oral endotracheal tube. Postoperative pain management: Per surgeon. Risks discussed: nausea, vomiting, headache, sore throat, dental injury, hypotension, allergic reaction, serious complications. Informed consent: signed by patient. Notes: smoker, asthma, cervical CA. Digitally Signed by MARIN COTE MD on 07/24/2023 12:05 PM [id number] Procedure note Brief IR Post Procedure Note - Outpatient Pre Procedure Dx: Cervical ca hx, left ureteral scarring requiring chronic catheter, poor compliance where prior PCNU was stuck in ureter, fibrin sheath of port Post Procedure Dx: Same Procedure: 1. Conversion of left PCNU to PCN 2. Port venogram 3. Port catheter fibrin sheath stripping Pathology Supervisor: Markus Food Quality Tester: None Anesthesia: Local, MAC EBL: Minimal Complications:None Status: Stable Findings: 1. Removed left PCNU and converted to 10 Fr pigtail PCN. To gravity bag. 2. Successful stripping of right chest port catheter via right groin venous approach. Port flushes and aspirates well. Port venogram shows no residual fibrin sheath. Port was heparin flushed and de-accessed. 3. Right groin CFV closure with Exoseal. Plan: 1. VS check then d/c home after 2h bedrest for right groin access 2. Routine PCN exchange with mod sedation in 6 weeks (6wks prasanna of pt known to have crystallization build up on prior exchanges). Can increase to 7 or 8 week changes if next exchange is uneventful andnot much mineral build up noted. Full report to follow. Orders in [employer]. Madeline Aparicio MD Vascular & Interventional Radiology [facility] ([facility]) [email or web address] [email or web address] Pager: [phone] [place] Dept (26/05): [phone] [facility] [id number] [facility] Digitally Signed by MADELINE APARICIO MD on 07/24/2023 01:58 PM [facility] [id number] Hospital Discharge instructions Patient Education 07/16/2023 13:40:49 Chronic Pain, Adult Chronic Pain, Adult Chronic pain is a type of pain that lasts or keeps coming back (recurs) for at least six months. You may have chronic headaches, abdominal pain, or body pain. Chronic pain may be related to an illness, such as fibromyalgia or complex regional pain syndrome. Sometimes the cause of chronic pain is not known. Chronic pain can make it hard for you to do daily activities. If not treated, chronic pain can leadto other health problems, including anxiety and depression. Treatment depends on the cause and severity of your pain. You may need to work with a pain specialist to come up with a treatment plan. Theplan may include medicine, counseling, and physical therapy. Many people benefit from a combinationof two or more types of treatment to control their pain. Follow these instructions at home: Lifestyle Consider keeping a pain diary to share with your health care providers. Consider talking with a mental health care provider (psychologist) about how to cope with chronic pain. Consider joining a chronic pain support group. Try to control or lower your stress levels. Talk to your health care provider about strategies to do this. General instructions Take nxuy-uvl-ydkdaxt and prescription medicines only as told by your health care provider. Follow your treatment plan as told by your health care provider. This may include: ?Gentle, regular exercise. ?Eating a healthy diet that includes foods such as vegetables, fruits, fish, and lean meats. ?Cognitive or behavioral therapy. ?Working with a physical therapist. ?Meditation or yoga. ?Acupuncture or massage therapy. ?Aroma, color, light, or sound therapy. ?Local electrical stimulation. ?Shots (injections) of numbing or pain-relieving medicines into the spine or the area of pain. Check your pain level as told by your health care provider. Ask your health care provider if you should use a pain scale. Learn as much as you can about how to manage your chronic pain. Ask your health care provider if anintensive pain rehabilitation program or a chronic pain specialist would be helpful. Keep all follow-up visits as told by your health care provider. This is important. Contact a health care provider if: Your pain gets worse. You have new pain. You have trouble sleeping. You have trouble doing your normal activities. Your pain is not controlled with treatment. Your have side effects from pain medicine. You feel weak. Get help right away if: You lose feeling or have numbness in your body. You lose control of bowel or bladder function. Your pain suddenly gets much worse. You develop shaking or chills. You develop confusion. You develop chest pain. You have trouble breathing or shortness of breath. You pass out. You have thoughts about hurting yourself or others. This information is not intended to replace advice given to you by your health care provider. Make sure you discuss any questions you have with your health care provider. Document Released: 07/12/2003 Document Revised: 10/02/2018 Document Reviewed: 04/08/2017 [employer] Patient Education 2020 [employer]. Follow Up Care 07/08/2023 20:13:58 With:OLE PACE MD Address: [address] [place] [phone] When:07/24/2023 15:00:00 With:FLIP MARTIN MD Address: [address] [place] [address] [place] [address] [phone] When:07/30/2023 11:30:00 [facility] 09-13-2023 Palliative care Progress note Awaiting prior auth Digitally Signed by SANTINO SAWYER MD on 07/16/2023 06:16 AM [facility] [id number] Note Date of Service 07/16/23 Subjective Patient seen and examined this morning. She is doing well. Her pain overall is better controlled. She has been eating and drinking without nausea or vomiting. Otherwise, no other complaints. Objective Vitals and Measurements T: 37 C (Oral) TMIN: 36.5 C (Oral) TMAX: 37 C (Oral) HR: 97 RR: 18 BP: 108/81 SpO2: 95% Intake and Output 7AM Yesterday to 7AM Today Intake and Output (Last 24 hours) Intake Oral Intake 580.00 Administration Information 800.00 Output Urine Voided 1600.00 Urostomy Output: 350.00 Total Summary Total Intake 1380.00 Total Output 1950.00 Fluid Balance -570.00 Physical Exam General: Well appearing, in no acute distress. HEENT: Normal hearing. Normal mucosa. Cardiac: Regular rate and rhythm. Respiratory: Airways clear bilaterally Abdomen: Soft, nontender, nondistended, no palpable masses, no hernias, normal bowel sounds. Extremities: Warm. No cyanosis, clubbing, or edema. Musculoskeletal: Normal range of motion. Psychiatric: Normal affect and demeanor. Weight Dosing Weight: 62.8 kg (07/09/23) Dosing Weight: 62.8 kg (07/08/23) Medications Medications (14) Active Scheduled: (10) gabapentin 300 mg Capsule 300 mg 1 cap(s), Oral, qHS heparin 5,000 units/mL (1 mL) vial 5,000 unit(s) 1 mL, Subcutaneous, q8h metoclopramide 5 mg/mL (2mL) vial 10 mg 2 mL, IV Push, q6h mirtazapine 15 mg tablet 15 mg 1 tab(s), Oral, qDay ondansetron 2 mg/ 1 mL 2 mL INJ 4 mg 2 mL, IV Push, q6h oxyCODONE 15 mg ER tablet 15 mg 1 tab(s), Oral, BID oxycodone 5 mg tablet (immediate release) 15 mg 3 tab(s), Oral, q4hr pantoprazole 40 mg EC tablet 40 mg 1 tab(s), Oral, qDayAC senna 8.6 mg Tablet 8.6 mg 1 tab(s), Oral, qDay sterile water - Solution 10 mL 2.2 mL, IV Push, prep pharm Continuous: (1) NS (0.9% nacl) 1,000 mL 1,000 mL, Intravenous, 100 mL/hr PRN: (3) HYDROmorphone 0.5 mg/0.5 mL PF syringe 0.5 mg 0.5 mL, IV Push, q2h hydromorphone 1 mg/mL (1mL) INJ 1 mg 1 mL, IV Push, q2h LORAZEPam 1 mg Tablet 1 mg 1 tab(s), Oral, q8h Lab Results 07/15 07:28 WBC: 7.7 Hgb: 11.9 L Hct: 35.2 Platelet: 358 Neutrophil %: 52.1 Glucose Level: 96 Sodium Level: 136 Potassium Level: 4.4 BUN: 6.0 L Creatinine Lvl (s): 0.74 Imaging Results and Diagnostics IR Port Check w/Guide Result Date: July 09, 2023 Verified By: JOHANNA JEAN BAPTISTE MD CLINICAL STATEMENT: IMPRESSION: Patency of port with good aspiration and infusion. Tiny fibrin sheath seen at the tip. The patient uses a port once every month therefore at this point, port revision is not recommended. I stripping of the fibrin sheath can be considered in the future. IR Nephrostomy Tube Change LT Guide Result Date: July 09, 2023 Verified By: JOHANNA JEAN BAPTISTE MD CLINICAL STATEMENT: IMPRESSION: Plan: The patient will return every 2-3 weeks with general anesthesia to obtain nephroureteral stent check and change until she proceeds with surgery in which ileostomy is planned. EKG No qualifying data available. Assessment/Plan Anxiety Asthma Cancer related pain Cervical ca Complicated UTI (urinary tract infection) Has UTI/needs nephrostomy tube changed Hypertension Nephrostomy status Port-A-Cath in place Tobacco use, Tobacco use Patient is a 32-year-old with stable IIIB SCC of the cervix with cancer related pain and recurrent urinary tract infections in the setting of left nephrostomy tube in place. Activity: Up ad marisa Diet: Regular IVF: Refused IV Fluids UOP: 800 cc voided, 200 cc in L neph tube Pain control: Oral Oxycontin , oxycodone, IV Dilaudid breakthrough, gabapentin VTE prophylaxis: SCDs, Hep TID Code: Full Cervical cancer - Stage IIIB SCC of the cervix - S/p Chemoradiation - 02/26 CT A/P: 2.4 cm peripherally enhancing mass within the inferior central pelvis. Discussed with IR, it is the uterus with post-radiation changes. Therefore, no biopsy recommended. - 04/27 CT A/P in ER showed similar mass as prior scan. Left collecting system and proximal ureteralwall thickening concerning for pyelitis/ascending UTI. New concern for sacral insufficiency fractures. - 05/22/2023 Pap smear showed Atypical from cells of undetermined significance (ASCUS). HPV high-risk negative. Plan for follow-up in 1 year for repeat Pap smear. - 07/07/23 CT A/P showed Left-sided nephrostomy is present extending the bladder. There is an irregularly shaped hypointense focus of the portal kidney without enhancement. Mucosal thickening versus underfilling of the colon. Otherwise normal. - Port-A-Cath in place > noted by RN to not be functioning properly - Port study 07/10: Patency of port with good aspiration and infusion. Tiny fibrin sheath seen at thetip. The patient uses a port once every month therefore at this point, port revision was not recommended. Stripping of the fibrin sheath will take place at the time of her nephrostomy tube evaluationon 07/24/23 Complicated Urinary Tract Infection - 07/07/23 Patient presented to [facility] for UTI symptoms. - Urinalysis on 07/07 was remarkable for signs of UTI at [facility]. Patient was placed on BactrimDS twice daily x10 days for outpatient management after discussion with Dr. Hilliard. - 07/07/23 CT abdomen/pelvis obtained at that time showed Left-sided nephrostomy is present extendingto the bladder. There is an irregularly shaped hypodense focus in the upper pole of the kidney without enhancement. Mucosal thickening versus underfilling of the colon. - 07/08 Patient again presents to [facility] with N/V, pain and UTI symptoms - Patient noted dysuria, flank pain, vomiting on admission - Urinalysis on admission was negative for nitrites, moderate leuks, 25 50 WBC. Clean-catch urine culture and urine culture resulted: 10,000-50,000 multiple bacteria (possible contamination). - s/p Meropenem (07/08-07/11) - VSS, AF since treatment. - Asymptomatic Cancer related pain - Previous pain regimen MS Contin 45 mg BID. Oxycodone 5 mg & 10 mg q4hrs PRN breakthrough, Gabapentin 300mg qHS. PRN IV 0.5mg Dilaudid. - Patient seen via telehealth visit on 06/22/2023. MS Contin was discontinued at that time. She was started on oxycodone 10 mg every 6 hours as needed for pain with plan for follow-up in 1 month. - Palliative care consulted for pain management assistance. Recommendations appreciated. Added MS-Contin - Current pain regimen: 15 mg Oxycontin BID, 15 mg oxycodone immediate release scheduled q4hr, gabapentin 300 mg nightly, hydromorphone 0.5 to 1 mg q2 hrs prn - Psychiatry saw patient, she does not wish to start meds, may start outpatient therapy. Appreciaterecommendations. - Plan for patient to follow up with supportive care oncology clinic with Dr. Pace outpatient. - Patient to go home on Oxycotin and oxycodone as above per palliative. Prior authorization pending Left Nephrostomy Tube - Patient was scheduled with interventional radiology for nephroureteral tube change on 06/24/2023. Patient did not show for appointment. - Patient does not currently follow with a urologist. She was supposed to see Dr. Andrea at [facility]. Referral was sent to this provider to be scheduled end of May/early June. Patient did not do this. - Discussion with Dr. Martin via telehealth visit, patient was encouraged again to follow-up with [facility] urology for possible nephrectomy in order to discontinue nephrostomy bag and prevent recurrent infections. This in order to ultimately discontinue pain medications for this problem. - IR: s/p Retrieval foreign body, antegrade nephrostomy gram, angioplasty of the left ureter, nephrostomy tube check and change with upsizing (07/09) - Needs to return in 2 to 3 weeks with general anesthesia for repeat nephroureteral stent check andchange. Scheduled for 07/24. - Left Nephrostomy tube output: 20 cc clear urine, 200 cc overnight Asthma - Asymptomatic - Patient currently not using inhaler H/o Tobacco use - Quit Anxiety - Continue home med Ativan 1 mg every 8 as needed for anxiety - Mood stable - Psych consulted, recs appreciated, as above Hx of Sacral fracture - 04/27 CT with findings concerning for New serpiginous areas of sclerosis of both sacral ala, concerning for sacral insufficiency fractures - Patient has not undergone planned DEXA scan outpatient since last admission - No concerns of sacral pain S/p Syncopal episode - On 07/10 patient said the pain was causing her to hold her breath. This caused her to faint whileshe was getting up to use the restroom. She said she fell backward and hit her head on the bedside table - VSS, Alert and oriented x3, No signs of head trauma, neurological exam intact on initial exam - No changes this AM Dispo: Home today pending prior authorization for her home going medications. Patient to follow up on 07/24 for her port membrane stripping, nephrostomy evaluation as above, and f/u with Dr. Sanjeev cruztn management Will discuss the above with Dr. Hilliard Digitally Signed by LUZ MARIA GODOY DO on 07/16/2023 06:55 AM [facility] [id number] Note Discharge Instructions Thank you for allowing [facility] to assist you with your healthcare needs. The following is importantdischarge information regarding your hospital visit. Your Care Team FLIP MARTIN MD Your Diagnosis Anxiety Asthma Cancer related pain Cervical ca Complicated UTI (urinary tract infection) Has UTI/needs nephrostomy tube changed Hypertension Nephrostomy status Port-A-Cath in place Tobacco use, Tobacco use What to do next Scheduled Follow-Up Appointments Appointment Type When With Where Contact InformationSurgical Pre-Test 07/17/2023 10:00 AM EDT Main PAT Surgery 07/24/2023 11:25 AM EDT Main OR [phone] IR Neph Cath-Neph Ureter W/Guide Left 07/24/2023 12:00 PM EDT IR PALL New Patient 07/24/2023 03:00 PM EDT OLE PACE MD Palliative Care SO OV Follow Up 07/30/2023 11:30 AM EDT FLIP MARTIN MD Gynecologic Oncology [address] [place] [address] Follow Up Appointments Follow Up with FLIP MARTIN MD When 07/30/2023 11:30 AM EDT Where: [address] [place] [address] [place] [address]- [phone] The Following Activity and Diet Have Been Ordered for You Discharge Activity - Ordered -- Activity As Tolerated, Resume pre-hospitalization activity, 07/16/23 13:37:00 EDT Discharge Diet - Ordered -- No changes were made to your diet during your hospital stay. Please resume your pre hospitalization diet on discharge., 07/16/23 13:37:00 EDT The Following Equipment Has Been Ordered for You No qualifying data available. The Following Treatments Have Been Ordered for You Discharge Labs No qualifying data available. Discharge Radiology No qualifying data available. Other Therapies No qualifying data available. Post Acute Orders No qualifying data available. Someone Will Contact You Regarding These Home Health Referrals No home referrals have been ordered for you. No one will call you. Allergies Oranges penicillin Medications Please ask your primary doctor or pharmacist before taking any other medication not listed, including over the counter drugs, herbal medications, vitamins and or supplements as they may interact withyour home medications. What How Much When Why Instructions Last Dose Changed LORazepam (Ativan 1 mg oral tablet) 1 tab(s) by mouth Every 8 hours Anxiety Cervical ca Duration: 9 Days Pickup at [facility]. Changed LORazepam (LORazepam 1 mg oral tablet) 1 tab(s) by mouth Every 8 hours Changed oxyCODONE (oxyCODONE 5 mg oral tablet ( IMMEDIATE release )) 3 tab(s) by mouth Every 4 hours as needed for as needed for pain Cancer related pain Cervical ca Duration: 7 Days Pickup at [facility]. Changed oxyCODONE (OxyContin 15 mg oral tablet, extended release) 1 tab(s) by mouth Two (2) times a day Cancer related pain Cervical ca Pickup at [facility]. Unchanged calcium-vitamin D (Calcium Plus Vitamin D3 600 mg-12.5 mcg (500 intl units) oral capsule) 2 cap by mouth Once a day with food Unchanged gabapentin (gabapentin 300 mg oral capsule) 1 cap by mouth Daily at bedtime Cervical cancer Duration: 30 Days Unchanged mirtazapine (mirtazapine 15 mg oral tablet) 1 tab(s) by mouth Once a day Unchanged ondansetron (ondansetron 4 mg oral tablet) 1 tab(s) by mouth Every 6 hours as needed for Nausea/Vomiting Duration: 30 Days Unchanged ondansetron (ondansetron 4 mg oral tablet) 1 tab(s) by mouth Every 6 hours as needed for Nausea/Vomiting Pharmacy Information [facility] [id number] [place], [place] [phone] Please take this list to your next doctor s visit. Bring all medications you take, including over the counter medications, herbals and other supplements with you to your doctor s visit. Patients and families are reminded to discard old lists and to update any records with all medication providers or retail pharmacies. Education Materials Chronic Pain, Adult Chronic pain is a type of pain that lasts or keeps coming back (recurs) for at least six months. You may have chronic headaches, abdominal pain, or body pain. Chronic pain may be related to an illness, such as fibromyalgia or complex regional pain syndrome. Sometimes the cause of chronic pain is not known. Chronic pain can make it hard for you to do daily activities. If not treated, chronic pain can leadto other health problems, including anxiety and depression. Treatment depends on the cause and severity of your pain. You may need to work with a pain specialist to come up with a treatment plan. Theplan may include medicine, counseling, and physical therapy. Many people benefit from a combinationof two or more types of treatment to control their pain. Follow these instructions at home: Lifestyle Consider keeping a pain diary to share with your health care providers. Consider talking with a mental health care provider (psychologist) about how to cope with chronic pain. Consider joining a chronic pain support group. Try to control or lower your stress levels. Talk to your health care provider about strategies to do this. General instructions Take bhxm-pbt-jmjzlwe and prescription medicines only as told by your health care provider. Follow your treatment plan as told by your health care provider. This may include: ? Gentle, regular exercise. ? Eating a healthy diet that includes foods such as vegetables, fruits, fish, and lean meats. ? Cognitive or behavioral therapy. ? Working with a physical therapist. ? Meditation or yoga. ? Acupuncture or massage therapy. ? Aroma, color, light, or sound therapy. ? Local electrical stimulation. ? Shots (injections) of numbing or pain-relieving medicines into the spine or the area of pain. Check your pain level as told by your health care provider. Ask your health care provider if you should use a pain scale. Learn as much as you can about how to manage your chronic pain. Ask your health care provider if anintensive pain rehabilitation program or a chronic pain specialist would be helpful. Keep all follow-up visits as told by your health care provider. This is important. Contact a health care provider if: Your pain gets worse. You have new pain. You have trouble sleeping. You have trouble doing your normal activities. Your pain is not controlled with treatment. Your have side effects from pain medicine. You feel weak. Get help right away if: You lose feeling or have numbness in your body. You lose control of bowel or bladder function. Your pain suddenly gets much worse. You develop shaking or chills. You develop confusion. You develop chest pain. You have trouble breathing or shortness of breath. You pass out. You have thoughts about hurting yourself or others. This information is not intended to replace advice given to you by your health care provider. Make sure you discuss any questions you have with your health care provider. Document Released: 07/12/2003 Document Revised: 10/02/2018 Document Reviewed: 04/08/2017 [employer] Patient Education 2020 [employer] Additional Information VACCINATE! IT SAVES LIVES! Members of the community who have not yet received the COVID-19 vaccine and would like to receive it can visit one of [facility] vaccine clinics. There are many vaccine clinic locations within the [facility]. For locations and available times, please visit [email or web address].[place].gov/. It is important to note that some COVID mobile vaccine clinics are held outdoors and may be canceled in rainy or stormy conditions. To learn more about pediatric vaccinations (ages 5-11), we invite you to visit the [facility] webpage. [email or web address].[email or web address]/pages/[email or web address] [email or web address] learn more about the COVID-19 vaccine, we invite you to visit the CDC website for a list of frequently asked questions.https://www.cdc.gov/coronavirus/2019-ncov/vaccines/faq.html [place] [employer] Patient Portal Access Instructions: Stay connected with your healthcare team and access your personal medical information anytime with the [employer] [facility] Patient Portal. Please follow the directions below to create your [facility] account: 1.Access the email account you provided upon registration to the hospital/physician office.2.Look for an invitation email from [facility].3.Open the email and access the invitation link: AcceptInvitation to [facility].4.Fill in the required quintero to create your account. To access your account, visit [email or web address]. Click the blue button labeled Access Patient Portal and then log in with the username and password that you created in the steps above. You will be able to view your test results, lab results, a summary of your visits, upcoming appointments and more. There is also a convenient messaging option where you can send secure messages to your [employer]. In addition, you will have the ability to download any documents or summaries to your computer and/or send the information securely to a physician. Remember that your healthcare information is confidential, so carefully consider who you will allowto register on the [employer] Patient Portal for access to your information. You can also access the [employer] Patient Portal on the [facility] [employer] joya. Simply click on Patient Portal and then log into your account. If you would like to receive a full copy of your medical records, please contact the [facility] Medical Records Department by calling [phone], Friday through Friday between 8 a.m. and 4:30 p.m. HOW TO SAFELY DISPOSE OF PRESCRIPTION MEDICATIONS Please use one of the following methods to safely dispose of your unused medications. 1.Use a drug disposal kit: the drug disposal pouch allows you to safely discard your old and unuseddrugs. Ask your nurse to give you one when you are discharged.2.Visit a local take-back location: Many local pharmacies and police departments have programs that collect old and unwanted prescriptiondrugs. Call your local pharmacy or go to http://bit.ConsumerBell/2Y0Yv6n to find one close to you.3.Make use of household items: Use cat litter or old coffee grounds to dispose medications if other options arenot available. Mix your drugs with these household products, seal them in an airtight container andthrow it into the garbage. Call [facility]: [phone] to be sure your drugs can be disposed of in this way. Some medicines may require a different approach.4.Never flush your medications down the toilet. IF YOU HAVE BEEN PRESCRIBED AN OPIOID FOR PAIN If you have been prescribed an opioid (such as hydrocodone, oxycodone or morphine), it is critical to understand the possible side effects and risks of opioid pain medications. Even when taken as directed, opioids can have several side effects including: Tolerance, meaning you might need to take more of a medication for the same pain relief. Nausea, vomiting and/or constipation. Sleepiness, dizziness, dry mouth, confusion, depression or itching. Physical dependence, meaning you have withdrawal symptoms when a medication is stopped, can develop within a few days. KNOW YOUR RESPONSIBILITIES It is important to know exactly how much and how often to take the opioid pain medications you are prescribed. Never take opioids in higher amounts or more often than prescribed. Do not combine opioids with alcohol or other drugs that cause drowsiness, such as benzodiazepines, also known as benzos, including diazepam and alprazolam, muscle relaxants or sleep aids. Never sell or share prescription opioids. This is illegal. Store opioids in a secure place and out of reach of others (including children, family, friends and visitors). The last page of this document has been signed and retained as a CHART COPY. Signatures Patient Education Materials Chronic Pain, Adult Medication Leaflets My discharge plan and instructions have been reviewed and explained to me and IANTONELLA RACHAEL L understand my current condition and have read and understand these discharge instructions. I have received a written copy of the plan/instructions. If I have questions, I am aware that I should contact my doctor. 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 She is doing well. Her pain overall is better controlled. She has been eating and drinking without nausea or vomiting. Otherwise, no other complaints. Objective Vitals and Measurements T: 37 C (Oral) TMIN: 36.5 C (Oral) TMAX: 37 C (Oral) HR: 97 RR: 18 BP: 108/81 SpO2: 95% Intake and Output 7AM Yesterday to 7AM Today Intake and Output (Last 24 hours) Intake Oral Intake 580.00 Administration Information 800.00 Output Urine Voided 1600.00 Urostomy Output: 350.00 Total Summary Total Intake 1380.00 Total Output 1950.00 Fluid Balance -570.00 Physical Exam General: Well appearing, in no acute distress. HEENT: Normal hearing. Normal mucosa. Cardiac: Regular rate and rhythm. Respiratory: Airways clear bilaterally Abdomen: Soft, nontender, nondistended, no palpable masses, no hernias, normal bowel sounds. Extremities: Warm. No cyanosis, clubbing, or edema. Musculoskeletal: Normal range of motion. Psychiatric: Normal affect and demeanor. Weight Dosing Weight: 62.8 kg (07/09/23) Dosing Weight: 62.8 kg (07/08/23) Medications Medications (14) Active Scheduled: (10) gabapentin 300 mg Capsule 300 mg 1 cap(s), Oral, qHS heparin 5,000 units/mL (1 mL) vial 5,000 unit(s) 1 mL, Subcutaneous, q8h metoclopramide 5 mg/mL (2mL) vial 10 mg 2 mL, IV Push, q6h mirtazapine 15 mg tablet 15 mg 1 tab(s), Oral, qDay ondansetron 2 mg/ 1 mL 2 mL INJ 4 mg 2 mL, IV Push, q6h oxyCODONE 15 mg ER tablet 15 mg 1 tab(s), Oral, BID oxycodone 5 mg tablet (immediate release) 15 mg 3 tab(s), Oral, q4hr pantoprazole 40 mg EC tablet 40 mg 1 tab(s), Oral, qDayAC senna 8.6 mg Tablet 8.6 mg 1 tab(s), Oral, qDay sterile water - Solution 10 mL 2.2 mL, IV Push, prep pharm Continuous: (1) NS (0.9% nacl) 1,000 mL 1,000 mL, Intravenous, 100 mL/hr PRN: (3) HYDROmorphone 0.5 mg/0.5 mL PF syringe 0.5 mg 0.5 mL, IV Push, q2h hydromorphone 1 mg/mL (1mL) INJ 1 mg 1 mL, IV Push, q2h LORAZEPam 1 mg Tablet 1 mg 1 tab(s), Oral, q8h Lab Results 07/15 07:28 WBC: 7.7 Hgb: 11.9 L Hct: 35.2 Platelet: 358 Neutrophil %: 52.1 Glucose Level: 96 Sodium Level: 136 Potassium Level: 4.4 BUN: 6.0 L Creatinine Lvl (s): 0.74 Imaging Results and Diagnostics IR Port Check w/Guide Result Date: July 09, 2023 Verified By: JOHANNA JEAN BAPTISTE MD CLINICAL STATEMENT: IMPRESSION: Patency of port with good aspiration and infusion. Tiny fibrin sheath seen at the tip. The patient uses a port once every month therefore at this point, port revision is not recommended. I stripping of the fibrin sheath can be considered in the future. IR Nephrostomy Tube Change LT Guide Result Date: July 09, 2023 Verified By: JOHANNA JEAN BAPTSITE MD CLINICAL STATEMENT: IMPRESSION: Plan: The patient will return every 2-3 weeks with general anesthesia to obtain nephroureteral stent check and change until she proceeds with surgery in which ileostomy is planned. EKG No qualifying data available. Assessment/Plan Anxiety Asthma Cancer related pain Cervical ca Complicated UTI (urinary tract infection) Has UTI/needs nephrostomy tube changed Hypertension Nephrostomy status Port-A-Cath in place Tobacco use, Tobacco use Patient is a 32-year-old with stable IIIB SCC of the cervix with cancer related pain and recurrent urinary tract infections in the setting of left nephrostomy tube in place. Activity: Up ad marisa Diet: Regular IVF: Refused IV Fluids UOP: 800 cc voided, 200 cc in L neph tube Pain control: Oral Oxycontin , oxycodone, IV Dilaudid breakthrough, gabapentin VTE prophylaxis: SCDs, Hep TID Code: Full Cervical cancer - Stage IIIB SCC of the cervix - S/p Chemoradiation - 02/26 CT A/P: 2.4 cm peripherally enhancing mass within the inferior central pelvis. Discussed with IR, it is the uterus with post-radiation changes. Therefore, no biopsy recommended. - 04/27 CT A/P in ER showed similar mass as prior scan. Left collecting system and proximal ureteralwall thickening concerning for pyelitis/ascending UTI. New concern for sacral insufficiency fractures. - 05/22/2023 Pap smear showed Atypical from cells of undetermined significance (ASCUS). HPV high-risk negative. Plan for follow-up in 1 year for repeat Pap smear. - 07/07/23 CT A/P showed Left-sided nephrostomy is present extending the bladder. There is an irregularly shaped hypointense focus of the portal kidney without enhancement. Mucosal thickening versus underfilling of the colon. Otherwise normal. - Port-A-Cath in place > noted by RN to not be functioning properly - Port study 07/10: Patency of port with good aspiration and infusion. Tiny fibrin sheath seen at thetip. The patient uses a port once every month therefore at this point, port revision was not recommended. Stripping of the fibrin sheath will take place at the time of her nephrostomy tube evaluationon 07/24/23 Complicated Urinary Tract Infection - 07/07/23 Patient presented to [facility] for UTI symptoms. - Urinalysis on 07/07 was remarkable for signs of UTI at [facility]. Patient was placed on BactrimDS twice daily x10 days for outpatient management after discussion with Dr. Hilliard. - 07/07/23 CT abdomen/pelvis obtained at that time showed Left-sided nephrostomy is present extendingto the bladder. There is an irregularly shaped hypodense focus in the upper pole of the kidney without enhancement. Mucosal thickening versus underfilling of the colon. - 07/08 Patient again presents to [facility] with N/V, pain and UTI symptoms - Patient noted dysuria, flank pain, vomiting on admission - Urinalysis on admission was negative for nitrites, moderate leuks, 25 50 WBC. Clean-catch urine culture and urine culture resulted: 10,000-50,000 multiple bacteria (possible contamination). - s/p Meropenem (07/08-07/11) - VSS, AF since treatment. - Asymptomatic Cancer related pain - Previous pain regimen MS Contin 45 mg BID. Oxycodone 5 mg & 10 mg q4hrs PRN breakthrough, Gabapentin 300mg qHS. PRN IV 0.5mg Dilaudid. - Patient seen via telehealth visit on 06/22/2023. MS Contin was discontinued at that time. She was started on oxycodone 10 mg every 6 hours as needed for pain with plan for follow-up in 1 month. - Palliative care consulted for pain management assistance. Recommendations appreciated. Added MS-Contin - Current pain regimen: 15 mg Oxycontin BID, 15 mg oxycodone immediate release scheduled q4hr, gabapentin 300 mg nightly, hydromorphone 0.5 to 1 mg q2 hrs prn - Psychiatry saw patient, she does not wish to start meds, may start outpatient therapy. Appreciaterecommendations. - Plan for patient to follow up with supportive care oncology clinic with Dr. Pace outpatient. - Patient to go home on Oxycotin and oxycodone as above per palliative. Prior authorization pending Left Nephrostomy Tube - Patient was scheduled with interventional radiology for nephroureteral tube change on 06/24/2023. Patient did not show for appointment. - Patient does not currently follow with a urologist. She was supposed to see Dr. Andrea at [facility]. Referral was sent to this provider to be scheduled end of May/early June. Patient did not do this. - Discussion with Dr. Martin via telehealth visit, patient was encouraged again to follow-up with [facility] urology for possible nephrectomy in order to discontinue nephrostomy bag and prevent recurrent infections. This in order to ultimately discontinue pain medications for this problem. - IR: s/p Retrieval foreign body, antegrade nephrostomy gram, angioplasty of the left ureter, nephrostomy tube check and change with upsizing (07/09) - Needs to return in 2 to 3 weeks with general anesthesia for repeat nephroureteral stent check andchange. Scheduled for 07/24. - Left Nephrostomy tube output: 20 cc clear urine, 200 cc overnight Asthma - Asymptomatic - Patient currently not using inhaler H/o Tobacco use - Quit Anxiety - Continue home med Ativan 1 mg every 8 as needed for anxiety - Mood stable - Psych consulted, recs appreciated, as above Hx of Sacral fracture - 04/27 CT with findings concerning for New serpiginous areas of sclerosis of both sacral ala, concerning for sacral insufficiency fractures - Patient has not undergone planned DEXA scan outpatient since last admission - No concerns of sacral pain S/p Syncopal episode - On 07/10 patient said the pain was causing her to hold her breath. This caused her to faint whileshe was getting up to use the restroom. She said she fell backward and hit her head on the bedside table - VSS, Alert and oriented x3, No signs of head trauma, neurological exam intact on initial exam - No changes this AM Dispo: Home today pending prior authorization for her home going medications. Patient to follow up on 07/24 for her port membrane stripping, nephrostomy evaluation as above, and f/u with Dr. Sanjeev erwin management Will discuss the above with Dr. Hilliard Digitally Signed by LUZ MARIA GODOY DO on 07/16/2023 06:55 AM [facility] [id number] Palliative care Progress note Awaiting prior auth Digitally Signed by SANTINO SAWYER MD on 07/16/2023 06:16 AM [facility] [id number] Palliative care Progress note Chart reviewed in detail. EKG remains pending to evaluate for possible QTc prolongation in anticipation of possibly starting methadone. Per documentation, patient resistant to starting methadone. Prescription written for oxycodone, OxyContin in anticipation of discharge tomorrow in case there is prior authorization needed. Digitally Signed by SANTINO SAWYER MD on 07/15/2023 12:19 PM [facility] [id number] Palliative care Progress note Chart reviewed in detail. EKG remains pending to evaluate for possible QTc prolongation in anticipation of possibly starting methadone. Per documentation, patient resistant to starting methadone. Prescription written for oxycodone, OxyContin in anticipation of discharge tomorrow in case there is prior authorization needed. Digitally Signed by SANTINO SAWYER MD on 07/15/2023 12:19 PM [facility] [id number] Note Date of Service 07/15/2023 Chief Complaint Pain, Nephrostomy in place, port in place Subjective Patient seen and examined. She was tearful on examination. She notes that she feels as if though her pain medications have been behind all night. She notes that she had called out to nursing due to her pain but feels as if she was not heard. She notes that palliative talk to her potentially about starting methadone, however patient is resistant to this idea stating that she does not like it. Otherwise no complaints overnight. Tolerating her current diet. Objective Vitals and Measurements T: 36.8 C (Oral) TMIN: 36.8 C (Oral) TMAX: 37.1 C (Oral) HR: 106 RR: 18 BP: 117/75 SpO2: 94% Intake and Output 7AM Yesterday to 7AM Today Intake and Output (Last 24 hours) Intake Oral Intake 480.00 Administration Information 800.00 Output Urine Voided 3900.00 Urostomy Output: 200.00 Stool Count 0.00 Total Summary Total Intake 1280.00 Total Output 4100.00 Fluid Balance -2820.00 Physical Exam Gen: AOx3, well appearing, NAD HEENT: No signs of head or neck trauma, no swelling or bleeding noted Cardiovascular: Regular Rate and Rhythm Respiratory: CTAB, no wheezes/rales/rhonchi Abdomen: positive BS, soft, generalized abdominal tenderness, nondistended, no rebound or guarding.Left nephrostomy in place. : deferred Extremities: No calf tenderness or edema MSK: CVA tenderness on left flank at her nephrostomy tube site. No tenderness to palpation of her back, neck, or hips. Skin: No swelling, erythema or ecchymosis. Weight Dosing Weight: 62.8 kg (07/09/23) Dosing Weight: 62.8 kg (07/08/23) Medications Medications (13) Active Scheduled: (9) gabapentin 300 mg Capsule 300 mg 1 cap(s), Oral, qHS metoclopramide 5 mg/mL (2mL) vial 10 mg 2 mL, IV Push, q6h mirtazapine 15 mg tablet 15 mg 1 tab(s), Oral, qDay ondansetron 2 mg/ 1 mL 2 mL INJ 4 mg 2 mL, IV Push, q6h oxyCODONE 15 mg ER tablet 15 mg 1 tab(s), Oral, BID oxycodone 5 mg tablet (immediate release) 15 mg 3 tab(s), Oral, q4hr pantoprazole 40 mg EC tablet 40 mg 1 tab(s), Oral, qDayAC senna 8.6 mg Tablet 8.6 mg 1 tab(s), Oral, qDay sterile water - Solution 10 mL 2.2 mL, IV Push, prep pharm Continuous: (1) NS (0.9% nacl) 1,000 mL 1,000 mL, Intravenous, 100 mL/hr PRN: (3) HYDROmorphone 0.5 mg/0.5 mL PF syringe 0.5 mg 0.5 mL, IV Push, q2h hydromorphone 1 mg/mL (1mL) INJ 1 mg 1 mL, IV Push, q2h LORAZEPam 1 mg Tablet 1 mg 1 tab(s), Oral, q8h Lab Results 07/14 10:09 WBC: 7.7 Hgb: 12.0 Hct: 36.1 Platelet: 299 Neutrophil %: 58.2 Glucose Level: 86 Sodium Level: 139 Potassium Level: 4.3 BUN: <5.0 L Creatinine Lvl (s): 0.69 AM labs pending Imaging Results and Diagnostics IR Port Check w/Guide Result Date: July 09, 2023 Verified By: JOHANNA JEAN BAPTISTE MD CLINICAL STATEMENT: IMPRESSION: Patency of port with good aspiration and infusion. Tiny fibrin sheath seenat the tip. The patient uses a port once every month therefore at thispoint, port revision is not recommended. I stripping of the fibrin sheathcan be considered in the future. IR Nephrostomy Tube Change LT Guide Result Date: July 09, 2023 Verified By: JOHANNA JEAN BAPTISTE MD CLINICAL STATEMENT: IMPRESSION: Plan: The patient will return every 2-3 weeks with general anesthesia toobtain nephroureteral stent check and change until she proceeds with surgeryin which ileostomy is planned. EKG Electrocardiogram (EKG) - Ordered -- 07/14/23 10:29:00 EDT, qtc analysis Assessment/Plan Patient is a 32-year-old with stable IIIB SCC of the cervix with recurrent urinary tract infectionsin the setting of left nephrostomy tube in place. Activity: Up ad marisa Diet: regular IVF: No fluids overnight d/t problems with IV. Will replace. NS 100 UOP: 75cc clear urine in nephrostomy. Pain control: Oral Oxycontin , oxycodone, Gabapentin, IV Dilaudid breakthrough VTE prophylaxis: SCDs, Hep TID (restarted this AM, was held for procedure which was deferred to a later time) Code: Full Cervical cancer -Stabe IIIB SCC of the cervix - S/p Chemoradiation - 02/26 CT A/P: 2.4 cm peripherally enhancing mass within the inferior central pelvis. Discussed with IR, it is the uterus with post-radiation changes. Therefore, no biopsy recommended. - 04/27 CT A/P in ER showed similar mass as prior scan. Left collecting system and proximal ureteralwall thickening concerning for pyelitis/ascending UTI. New concern for sacral insufficiency fractures. - 05/22/2023 Pap smear showed Atypical from cells of undetermined significance (ASCUS). HPV high-risk negative. Plan for follow-up in 1 year for repeat Pap smear. - 07/07/23 CT A/P showed Left-sided nephrostomy is present extending the bladder. There is an irregularly shaped hypointense focus of the portal kidney without enhancement. Mucosal thickening versus underfilling of the colon. Otherwise normal. - Port-A-Cath in place > noted by RN to not be functioning properly - Post study 07/10: Patency of port with good aspiration and infusion. Tiny fibrin sheath seen at thetip. The patient uses a port once every month therefore at this point, port revision was not recommended. Stripping of the fibrin sheath was considered. - IR recommended stripping of her Port-A-Cath. Was scheduled for procedure yesterday, however IR will do in combination with Nephrostomy evaluation under anesthesia on 07/24/23. Complicated Urinary Tract Infection -07/07/23 Patient presented to [facility] for UTI symptoms. - Urinalysis on 07/07 was remarkable for signs of UTI at [facility]. Patient was placed on BactrimDS twice daily x10 days for outpatient management after discussion with Dr. Hilliard. - 07/07/23 CT abdomen/pelvis obtained at that time showed Left-sided nephrostomy is present extendingto the bladder. There is an irregularly shaped hypodense focus in the upper pole of the kidney without enhancement. Mucosal thickening versus underfilling of the colon. -07/08 Patient again presents to [facility] with N/V, pain and UTI symptoms -Patient notes dysuria, flank pain, vomiting on admission - Afebrile, BP is hypertensive 150s 90s. Otherwise normal. - Urinalysis on admission was negative for nitrites, moderate leuks, 25 50 WBC. Clean-catch urine culture and urine culture resulted: 10,000-50,000 multiple bacteria (possible contamination). - s/p Meropenem (07/08-07/11) Cancer related pain - Previous pain regimen MS Contin 45 mg BID. Oxycodone 5 mg & 10 mg q4hrs PRN breakthrough, Gabapentin 300mg qHS. PRN IV 0.5mg Dilaudid. - Patient seen via telehealth visit on 06/22/2023. MS Contin was discontinued at that time. She was started on oxycodone 10 mg every 6 hours as needed for pain with plan for follow-up in 1 month. -Palliative care consulted for pain management assistance. Recommendations appreciated. Added MS-Contin - Current pain regimen: 15 mg Oxycontin BID, 15 mg oxycodone immediate release scheduled q4hr, gabapentin 300 mg nightly, hydromorphone 0.5 to 1 mg q2 hrs prn - Palliative may transition from Oxycontin 15mg o Methadone - Patient states her pain was not addressed to her satisfaction overnight - psychiatry saw patient, she does not wish to start meds, may start outpatient therapy. Appreciaterecommendations. - plan for patient to follow up with supportive care oncology clinic with Dr. Pace outpatient. Left Nephrostomy Tube -Patient was scheduled with interventional radiology for nephroureteral tube change on 06/24/2023. Patient did not show for appointment. -Patient does not currently follow with a urologist. She was supposed to see Dr. Andrea at [facility]. Referral was sent to this provider to be scheduled end of May/early June. Patient did not dothis. -Discussion with Dr. Martin via telehealth visit, patient was encouraged again to follow-up with [facility] urology for possible nephrectomy in order to discontinue nephrostomy bag and prevent recurrent infections. This in order to ultimately discontinue pain medications for this problem. - IR: s/p Retrieval foreign body, antegrade nephrostomy gram, angioplasty of the left ureter, nephrostomy tube check and change with upsizing (07/09) - Needs to return in 2 to 3 weeks with general anesthesia for repeat nephroureteral stent check andchange. Scheduled for 07/24. - Left Nephrostomy tube output: 15cc clear urine Asthma - asymptomatic - patient currently not using inhaler - psych consult pending H/o Tobacco use - patient notes she has quit Anxiety - Continue home med Ativan 1 mg every 8 as needed for anxiety - Mood stable Hx of Sacral fracture - 04/27 CT with findings concerning for New serpiginous areas of sclerosis of both sacral ala, concerning for sacral insufficiency fractures - Patient has not undergone planned DEXA scan outpatient since last admission - no concerns of sacral pain s/p Syncopal episode - On 07/10 patient said the pain was causing her to hold her breath. This caused her to faint whileshe was getting up to use the restroom. She said she fell backward and hit her head on the bedside table - VSS, Alert and oriented x3, No signs of head trauma, neurological exam intact on initial exam - No changes this AM Dispo: Continue inpatient care for pain management. Appreciate palliative care recommendations for pain management. Once palliative care recommendations are finalized regarding patient's methadone versus OxyContin, plan for patient's discharge home. She will have outpatient follow-up with interventional radiology for nephrostomy tube evaluation and port stripping as well as with supportive care oncology clinic for future pain control. Digitally Signed by ANGELA ALVARADO DO on 07/15/2023 06:33 AM [id number] Nurse Progress note Nephrostomy dressing changed. Site was cleansed with normal saline and a gentle soap. After area was dried, a split gauze was applied and covered with a transparent dressing. Tube was tape down with silk tape and two edges were reinforced with silk tape. Pt had no complaints of pain from the dressing change and reported that she was happy with new dressing and that her nephrostomy was being pulled on. Digitally Signed by Elicai Rojo RN on 07/15/2023 10:28 AM [facility] [id number] Note Date of Service 07/15/2023 Chief Complaint Pain, Nephrostomy in place, port in place Subjective Patient seen and examined. She was tearful on examination. She notes that she feels as if though her pain medications have been behind all night. She notes that she had called out to nursing due to her pain but feels as if she was not heard. She notes that palliative talk to her potentially about starting methadone, however patient is resistant to this idea stating that she does not like it. Otherwise no complaints overnight. Tolerating her current diet. Objective Vitals and Measurements T: 36.8 C (Oral) TMIN: 36.8 C (Oral) TMAX: 37.1 C (Oral) HR: 106 RR: 18 BP: 117/75 SpO2: 94% Intake and Output 7AM Yesterday to 7AM Today Intake and Output (Last 24 hours) Intake Oral Intake 480.00 Administration Information 800.00 Output Urine Voided 3900.00 Urostomy Output: 200.00 Stool Count 0.00 Total Summary Total Intake 1280.00 Total Output 4100.00 Fluid Balance -2820.00 Physical Exam Gen: AOx3, well appearing, NAD HEENT: No signs of head or neck trauma, no swelling or bleeding noted Cardiovascular: Regular Rate and Rhythm Respiratory: CTAB, no wheezes/rales/rhonchi Abdomen: positive BS, soft, generalized abdominal tenderness, nondistended, no rebound or guarding.Left nephrostomy in place. : deferred Extremities: No calf tenderness or edema MSK: CVA tenderness on left flank at her nephrostomy tube site. No tenderness to palpation of her back, neck, or hips. Skin: No swelling, erythema or ecchymosis. Weight Dosing Weight: 62.8 kg (07/09/23) Dosing Weight: 62.8 kg (07/08/23) Medications Medications (13) Active Scheduled: (9) gabapentin 300 mg Capsule 300 mg 1 cap(s), Oral, qHS metoclopramide 5 mg/mL (2mL) vial 10 mg 2 mL, IV Push, q6h mirtazapine 15 mg tablet 15 mg 1 tab(s), Oral, qDay ondansetron 2 mg/ 1 mL 2 mL INJ 4 mg 2 mL, IV Push, q6h oxyCODONE 15 mg ER tablet 15 mg 1 tab(s), Oral, BID oxycodone 5 mg tablet (immediate release) 15 mg 3 tab(s), Oral, q4hr pantoprazole 40 mg EC tablet 40 mg 1 tab(s), Oral, qDayAC senna 8.6 mg Tablet 8.6 mg 1 tab(s), Oral, qDay sterile water - Solution 10 mL 2.2 mL, IV Push, prep pharm Continuous: (1) NS (0.9% nacl) 1,000 mL 1,000 mL, Intravenous, 100 mL/hr PRN: (3) HYDROmorphone 0.5 mg/0.5 mL PF syringe 0.5 mg 0.5 mL, IV Push, q2h hydromorphone 1 mg/mL (1mL) INJ 1 mg 1 mL, IV Push, q2h LORAZEPam 1 mg Tablet 1 mg 1 tab(s), Oral, q8h Lab Results 07/14 10:09 WBC: 7.7 Hgb: 12.0 Hct: 36.1 Platelet: 299 Neutrophil %: 58.2 Glucose Level: 86 Sodium Level: 139 Potassium Level: 4.3 BUN: <5.0 L Creatinine Lvl (s): 0.69 AM labs pending Imaging Results and Diagnostics IR Port Check w/Guide Result Date: July 09, 2023 Verified By: JOHANNA JEAN BAPTISTE MD CLINICAL STATEMENT: IMPRESSION: Patency of port with good aspiration and infusion. Tiny fibrin sheath seenat the tip. The patient uses a port once every month therefore at thispoint, port revision is not recommended. I stripping of the fibrin sheathcan be considered in the future. IR Nephrostomy Tube Change LT Guide Result Date: July 09, 2023 Verified By: JOHANNA JEAN BAPTISTE MD CLINICAL STATEMENT: IMPRESSION: Plan: The patient will return every 2-3 weeks with general anesthesia toobtain nephroureteral stent check and change until she proceeds with surgeryin which ileostomy is planned. EKG Electrocardiogram (EKG) - Ordered -- 07/14/23 10:29:00 EDT, qtc analysis Assessment/Plan Patient is a 32-year-old with stable IIIB SCC of the cervix with recurrent urinary tract infectionsin the setting of left nephrostomy tube in place. Activity: Up ad marisa Diet: regular IVF: No fluids overnight d/t problems with IV. Will replace. NS 100 UOP: 75cc clear urine in nephrostomy. Pain control: Oral Oxycontin , oxycodone, Gabapentin, IV Dilaudid breakthrough VTE prophylaxis: SCDs, Hep TID (restarted this AM, was held for procedure which was deferred to a later time) Code: Full Cervical cancer -Stabe IIIB SCC of the cervix - S/p Chemoradiation - 02/26 CT A/P: 2.4 cm peripherally enhancing mass within the inferior central pelvis. Discussed with IR, it is the uterus with post-radiation changes. Therefore, no biopsy recommended. - 04/27 CT A/P in ER showed similar mass as prior scan. Left collecting system and proximal ureteralwall thickening concerning for pyelitis/ascending UTI. New concern for sacral insufficiency fractures. - 05/22/2023 Pap smear showed Atypical from cells of undetermined significance (ASCUS). HPV high-risk negative. Plan for follow-up in 1 year for repeat Pap smear. - 07/07/23 CT A/P showed Left-sided nephrostomy is present extending the bladder. There is an irregularly shaped hypointense focus of the portal kidney without enhancement. Mucosal thickening versus underfilling of the colon. Otherwise normal. - Port-A-Cath in place > noted by RN to not be functioning properly - Post study 07/10: Patency of port with good aspiration and infusion. Tiny fibrin sheath seen at thetip. The patient uses a port once every month therefore at this point, port revision was not recommended. Stripping of the fibrin sheath was considered. - IR recommended stripping of her Port-A-Cath. Was scheduled for procedure yesterday, however IR will do in combination with Nephrostomy evaluation under anesthesia on 07/24/23. Complicated Urinary Tract Infection -07/07/23 Patient presented to [facility] for UTI symptoms. - Urinalysis on 07/07 was remarkable for signs of UTI at [facility]. Patient was placed on BactrimDS twice daily x10 days for outpatient management after discussion with Dr. Hilliard. - 07/07/23 CT abdomen/pelvis obtained at that time showed Left-sided nephrostomy is present extendingto the bladder. There is an irregularly shaped hypodense focus in the upper pole of the kidney without enhancement. Mucosal thickening versus underfilling of the colon. -07/08 Patient again presents to [facility] with N/V, pain and UTI symptoms -Patient notes dysuria, flank pain, vomiting on admission - Afebrile, BP is hypertensive 150s 90s. Otherwise normal. - Urinalysis on admission was negative for nitrites, moderate leuks, 25 50 WBC. Clean-catch urine culture and urine culture resulted: 10,000-50,000 multiple bacteria (possible contamination). - s/p Meropenem (07/08-07/11) Cancer related pain - Previous pain regimen MS Contin 45 mg BID. Oxycodone 5 mg & 10 mg q4hrs PRN breakthrough, Gabapentin 300mg qHS. PRN IV 0.5mg Dilaudid. - Patient seen via telehealth visit on 06/22/2023. MS Contin was discontinued at that time. She was started on oxycodone 10 mg every 6 hours as needed for pain with plan for follow-up in 1 month. -Palliative care consulted for pain management assistance. Recommendations appreciated. Added MS-Contin - Current pain regimen: 15 mg Oxycontin BID, 15 mg oxycodone immediate release scheduled q4hr, gabapentin 300 mg nightly, hydromorphone 0.5 to 1 mg q2 hrs prn - Palliative may transition from Oxycontin 15mg o Methadone - Patient states her pain was not addressed to her satisfaction overnight - psychiatry saw patient, she does not wish to start meds, may start outpatient therapy. Appreciaterecommendations. - plan for patient to follow up with supportive care oncology clinic with Dr. Pace outpatient. Left Nephrostomy Tube -Patient was scheduled with interventional radiology for nephroureteral tube change on 06/24/2023. Patient did not show for appointment. -Patient does not currently follow with a urologist. She was supposed to see Dr. Andrea at [facility]. Referral was sent to this provider to be scheduled end of May/early June. Patient did not dothis. -Discussion with Dr. Martin via telehealth visit, patient was encouraged again to follow-up with [facility] urology for possible nephrectomy in order to discontinue nephrostomy bag and prevent recurrent infections. This in order to ultimately discontinue pain medications for this problem. - IR: s/p Retrieval foreign body, antegrade nephrostomy gram, angioplasty of the left ureter, nephrostomy tube check and change with upsizing (07/09) - Needs to return in 2 to 3 weeks with general anesthesia for repeat nephroureteral stent check andchange. Scheduled for 07/24. - Left Nephrostomy tube output: 15cc clear urine Asthma - asymptomatic - patient currently not using inhaler - psych consult pending H/o Tobacco use - patient notes she has quit Anxiety - Continue home med Ativan 1 mg every 8 as needed for anxiety - Mood stable Hx of Sacral fracture - 04/27 CT with findings concerning for New serpiginous areas of sclerosis of both sacral ala, concerning for sacral insufficiency fractures - Patient has not undergone planned DEXA scan outpatient since last admission - no concerns of sacral pain s/p Syncopal episode - On 07/10 patient said the pain was causing her to hold her breath. This caused her to faint whileshe was getting up to use the restroom. She said she fell backward and hit her head on the bedside table - VSS, Alert and oriented x3, No signs of head trauma, neurological exam intact on initial exam - No changes this AM Dispo: Continue inpatient care for pain management. Appreciate palliative care recommendations for pain management. Once palliative care recommendations are finalized regarding patient's methadone versus OxyContin, plan for patient's discharge home. She will have outpatient follow-up with interventional radiology for nephrostomy tube evaluation and port stripping as well as with supportive care oncology clinic for future pain control. Digitally Signed by ANGELA ALVARADO DO on 07/15/2023 06:33 AM [facility] [id number] Palliative care Progress note Date of Service 07/14/2023 Code Status Code Status - Ordered -- 07/08/23 22:24:00 EDT, Full Code, Constant Order Chief Complaint pain History of Present Illness No acute events over the interval. She continues to endorse pain. She does not feel that the changes that were made to start her on OxyContin were necessarily effective and she continues to require IV hydromorphone over the interval. I met with her today and discussed options about rotating to methadone which I think would be a better medication for her given her prolonged use of oxycodone. She was agreeable to obtain an EKG which can be evaluated to make sure this is a safe medicine for her. She was hesitant about the idea of starting methadone given its association with addiction and is willing to talk with me more but would like to continue our current regimen until I discussed with her in the morning once the results of the EKG are known. Medications Medications (13) Active Scheduled: (9) gabapentin 300 mg Capsule 300 mg 1 cap(s), Oral, qHS metoclopramide 5 mg/mL (2mL) vial 10 mg 2 mL, IV Push, q6h mirtazapine 15 mg tablet 15 mg 1 tab(s), Oral, qDay ondansetron 2 mg/ 1 mL 2 mL INJ 4 mg 2 mL, IV Push, q6h oxyCODONE 15 mg ER tablet 15 mg 1 tab(s), Oral, BID oxycodone 5 mg tablet (immediate release) 10 mg 2 tab(s), Oral, q4h pantoprazole 40 mg EC tablet 40 mg 1 tab(s), Oral, qDayAC senna 8.6 mg Tablet 8.6 mg 1 tab(s), Oral, qDay sterile water - Solution 10 mL 2.2 mL, IV Push, prep pharm Continuous: (1) NS (0.9% nacl) 1,000 mL 1,000 mL, Intravenous, 100 mL/hr PRN: (3) HYDROmorphone 0.5 mg/0.5 mL PF syringe 0.5 mg 0.5 mL, IV Push, q2h hydromorphone 1 mg/mL (1mL) INJ 1 mg 1 mL, IV Push, q2h LORAZEPam 1 mg Tablet 1 mg 1 tab(s), Oral, q8h Physical Exam Very pleasant young adult female seated upright in bed which is in the seated position Mildly tachycardic Easy respirations Thin appearing Pale NCAT, PERRLA Cranial nerves II to XII grossly intact Alert, oriented x4 Nephrostomy tube in place with yellow urine noted Abdomen is soft, nondistended Vitals and Measurements T: 36.9 C (Oral) TMIN: 36.9 C (Oral) TMAX: 37.3 C (Oral) HR: 100 RR: 18 BP: 115/84 SpO2: 92% Weight Dosing Weight: 62.8 kg (07/09/23) Dosing Weight: 62.8 kg (07/08/23) Time Spent 20 minutes spent, greater 50% of bedside discussing plan of care Labs 07/14 10:09 WBC: 7.7 Hgb: 12.0 Hct: 36.1 Platelet: 299 Neutrophil %: 58.2 Glucose Level: 86 Sodium Level: 139 Potassium Level: 4.3 BUN: <5.0 L Creatinine Lvl (s): 0.69 07/13 09:56 WBC: 8.1 Hgb: 11.5 L Hct: 35.2 Platelet: 295 Neutrophil %: 64.6 Glucose Level: 130 H Sodium Level: 139 Potassium Level: 3.9 BUN: <5.0 L Creatinine Lvl (s): 0.73 Imaging Results and Diagnostics IR Port Check w/Guide Result Date: July 09, 2023 Verified By: JOHANNA JEAN BAPTISTE MD CLINICAL STATEMENT: IMPRESSION: Patency of port with good aspiration and infusion. Tiny fibrin sheath seenat the tip. The patient uses a port once every month therefore at thispoint, port revision is not recommended. I stripping of the fibrin sheathcan be considered in the future. IR Nephrostomy Tube Change LT Guide Result Date: July 09, 2023 Verified By: JOHANNA JEAN BAPTISTE MD CLINICAL STATEMENT: IMPRESSION: Plan: The patient will return every 2-3 weeks with general anesthesia toobtain nephroureteral stent check and change until she proceeds with surgeryin which ileostomy is planned. I reviewed the labs, notes, imaging over the interval Assessment/Plan Anxiety Anxiolytic therapy per primary team. Asthma Cancer related pain For the time being, we will continue OxyContin 15 mg twice daily as well as oxycodone 15 mg every 4hours as needed for breakthrough pain and hydromorphone IV every 2 hours as needed. It does not appear the addition of OxyContin 15 mg has made a significant impact on her overall IV utilization. EKGpending. Will anticipate transitioning her to methadone tomorrow if she is agreeable. Plan to follow-up in the supportive care oncology clinic with Dr. Pace. Cervical ca Management per primary team. Complicated UTI (urinary tract infection) Has UTI/needs nephrostomy tube changed Hypertension Nephrostomy status Port-A-Cath in place Tobacco use, Tobacco use Orders: Complete EKG Comments: Entered secondary to EKG order. Electrocardiogram Digitally Signed by SANTINO SAWYER MD on 07/14/2023 03:31 PM [facility] [id number] Note Date of Service 07/14/2023 Chief Complaint Pain, Nephrostomy in place, port in place Subjective Patient seen and examined. She has been NPO overnight. She notes that her IV was leaking overnight and she wanted the fluids turned off. We discussed with the patient replacing the IV in preparation for her procedure today. She confirms some mild nausea. No vomiting. Pain is unchanged from prior assessments. She is voiding spontaneously and notes an increased frequency of urination, every 10 minutes. We answered questions and concerns regarding her port revision today. 75cc clear urine in nephrostomy. Objective Vitals and Measurements T: 37.3 C (Oral) TMIN: 36.7 C (Oral) TMAX: 37.3 C (Oral) HR: 92 RR: 18 BP: 153/93 SpO2: 98% Intake and Output 7AM Yesterday to 7AM Today Intake and Output (Last 24 hours) Intake Administration Information 1600.00 Supplement Intake 0.00 Output Urine Voided 2550.00 Urostomy Output: 600.00 Urine Count 3.00 Total Summary Total Intake 1600.00 Total Output 3150.00 Fluid Balance -1550.00 Physical Exam Gen: AOx3, well appearing, NAD HEENT: No signs of head or neck trauma, no swelling or bleeding noted Cardiovascular: Regular Rate and Rhythm Respiratory: CTAB, no wheezes/rales/rhonchi Abdomen: positive BS, soft, generalized abdominal tenderness, nondistended, no rebound or guarding.Left nephrostomy in place. : deferred Extremities: No calf tenderness or edema MSK: CVA tenderness on left flank at her nephrostomy tube site. No tenderness to palpation of her back, neck, or hips. Skin: No swelling, erythema or ecchymosis. Weight Dosing Weight: 62.8 kg (07/09/23) Dosing Weight: 62.8 kg (07/08/23) Medications Medications (13) Active Scheduled: (9) gabapentin 300 mg Capsule 300 mg 1 cap(s), Oral, qHS metoclopramide 5 mg/mL (2mL) vial 10 mg 2 mL, IV Push, q6h mirtazapine 15 mg tablet 15 mg 1 tab(s), Oral, qDay ondansetron 2 mg/ 1 mL 2 mL INJ 4 mg 2 mL, IV Push, q6h oxyCODONE 15 mg ER tablet 15 mg 1 tab(s), Oral, BID oxycodone 5 mg tablet (immediate release) 10 mg 2 tab(s), Oral, q4h pantoprazole 40 mg EC tablet 40 mg 1 tab(s), Oral, qDayAC senna 8.6 mg Tablet 8.6 mg 1 tab(s), Oral, qDay sterile water - Solution 10 mL 2.2 mL, IV Push, prep pharm Continuous: (1) NS (0.9% nacl) 1,000 mL 1,000 mL, Intravenous, 100 mL/hr PRN: (3) HYDROmorphone 0.5 mg/0.5 mL PF syringe 0.5 mg 0.5 mL, IV Push, q2h hydromorphone 1 mg/mL (1mL) INJ 1 mg 1 mL, IV Push, q2h LORAZEPam 1 mg Tablet 1 mg 1 tab(s), Oral, q8h Lab Results 07/13 09:56 WBC: 8.1 Hgb: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 home med Ativan 1 mg every 8 as needed for anxiety - Mood stable Hx of Sacral fracture - 04/27 CT with findings concerning for New serpiginous areas of sclerosis of both sacral ala, concerning for sacral insufficiency fractures - Patient has not undergone planned DEXA scan outpatient since last admission - no concerns of sacral pain s/p Syncopal episode - On 07/10 patient said the pain was causing her to hold her breath. This caused her to faint whileshe was getting up to use the restroom. She said she fell backward and hit her head on the bedside table - VSS, Alert and oriented x3, No signs of head trauma, neurological exam intact on initial exam - No changes this AM Dispo: Continue inpatient care for pain management. Appreciate palliative care recommendations for pain management. Plan for Port-A-Cath stripping per IR recommendations possibly today, patient has been NPO. Patient to follow up outpatient with pain management. Digitally Signed by ANGELA ALVARADO DO on 07/14/2023 06:45 AM [facility] [id number] Palliative care Consult note Date of Service 07/11/2023 Reason for Consult Cancer related pain management Participants in Discussion Sera, the patient History of Present Illness Sera Navas is a 32-year-old, Greek-speaking, female with past medical history of advanced squamous cell stage IIIb cervical cancer status post chemoradiation, protein calorie malnutrition, premature menopause, obstructive uropathy status post nephrostomy tube, asthma, complicated urinary tract infection. She was admitted to hospital on 07/08/2023 as a transfer from outside hospital due to nausea, vomiting, bilateral flank pain status post retrieval foreign body, antegrade nephrostomy gram, angioplasty of left ureter, nephrostomy tube check with upsizing 07/09. Palliative care consulted to assist in cancer-related pain management. Review of Systems Review of systems completed. She inform me she has taken opiate analgesia for the past 4 years. Previously, her pain was moderately controlled with oxycodone. She is also been receiving MS Contin. Initially, she did not think this medication was effective for her. However, she noticed after discontinuing MS Contin and only utilizing immediate release oxycodone that her pain did worsen. She specifically notes that her pain acutely worsened after having nephrostomy tube exchange. She feels like her current regimen is helpful but unfortunately the hydromorphone and oxycodone wears off too quickly. She was having nausea previously but this seems to have been improved. Did have a bowel movement e arlier today. Physical Exam Vitals and Measurements T: 36.9 C (Oral) TMIN: 36.5 C (Oral) TMAX: 37.3 C (Oral) HR: 100 RR: 16 BP: 116/79 SpO2: 97% Weight Dosing Weight: 62.8 kg (07/09/23) Dosing Weight: 62.8 kg (07/08/23) Very pleasant young adult female seated upright in bed which is in the seated position Mildly tachycardic Easy respirations Thin appearing Pale NCAT, PERRLA Cranial nerves II to XII grossly intact Alert, oriented x4 Nephrostomy tube in place with yellow urine noted Abdomen is soft, nondistended Lab Results 07/11 10:04 WBC: 10.3 Hgb: 12.2 Hct: 37.2 Platelet: 226 Neutrophil %: 69.5 Glucose Level: 104 Sodium Level: 138 Potassium Level: 4.2 BUN: 7.0 L Creatinine Lvl (s): 0.84 07/10 06:57 Glucose Level: 95 Sodium Level: 136 Potassium Level: 4.0 BUN: 6.0 L Creatinine Lvl (s): 0.87 07/10 05:16 WBC: 8.2 Hgb: 10.4 L Hct: 35.0 Platelet: 220 Neutrophil %: 81.8 H Imaging Results and Diagnostics IR Port Check w/Guide Result Date: July 09, 2023 Verified By: JOHANNA JEAN BAPTISTE MD CLINICAL STATEMENT: IMPRESSION: Patency of port with good aspiration and infusion. Tiny fibrin sheath seenat the tip. The patient uses a port once every month therefore at thispoint, port revision is not recommended. I stripping of the fibrin sheathcan be considered in the future. IR Nephrostomy Tube Change LT Guide Result Date: July 09, 2023 Verified By: JOHANNA JEAN BAPTISTE MD CLINICAL STATEMENT: IMPRESSION: Plan: The patient will return every 2-3 weeks with general anesthesia toobtain nephroureteral stent check and change until she proceeds with surgeryin which ileostomy is planned. Palliative Assessment and Recommendations Anxiety She is continued on lorazepam now 1 mg every 8 hours as needed for anxiety Asthma Cancer related pain OARRS Report reviewed in detail. Most recently, she received a dose of oxycodone acetaminophen 5 3 25 9 pills for 3 days on 07/07/2023. Previously, she had received oxycodone 10 mg tabs, 120 tabs for 30 days on 06/26/2023. She also received a prescription of morphine sulfate extended release 30 mg, 60tabs for 30 days on 06/16/2023 as well as lorazepam 1 mg, 90 tabs for 30 days on 06/16/2023. Her lastprescription of gabapentin was 30 pills for 30 days 300 mg on 05/08/2023. She was discontinued from long-acting morphine June 22 and has not had any long-acting pain medicine since that time. There is documented concern from family members for possible opiate use disorder/diversion. Reviewed urinary drug screen which is consistent with her current prescribed medications as well as some cannabis. Currently, the patient is receiving 10 mg oxycodone immediate release scheduled every 4 hours, Toradol 15 mg IV every 6 hours scheduled, gabapentin 300 mg nightly, hydromorphone 0.5 to 1 mg every 2 hours as needed for pain. Previously, her regimen was for 90 oral morphine equivalents from MS Contin, 75 oral morphine equivalents from immediate release oxycodone. While in hospital, she is receiving 75 oral morphine equivalents again from oxycodone immediate release and has had an additional 62.5 oral morphine equivalents by having Dilaudid 1 mg 5 times in the last 24 hours. -Continue regimen as above with the initiation of OxyContin 15 mg twice daily Educated about opiate use disorder Agreeable to follow in supportive care oncology clinic Cervical ca, Cervical cancer, Cervical cancer -Stabe IIIB SCC of the cervix - S/p Chemoradiation - 02/26 CT A/P: 2.4 cm peripherally enhancing mass within the inferior central pelvis. Discussed with IR, it is the uterus with post-radiation changes. Therefore, no biopsy recommended. - 04/27 CT A/P in ER showed similar mass as prior scan. Left collecting system and proximal ureteralwall thickening concerning for pyelitis/ascending UTI. New concern for sacral insufficiency fractures. - 05/22/2023 Pap smear showed Atypical from cells of undetermined significance (ASCUS). HPV high-risk negative. Plan for follow-up in 1 year for repeat Pap smear. Complicated UTI (urinary tract infection) Has UTI/needs nephrostomy tube changed Hypertension Nephrostomy status Sacral fracture Tobacco use Tobacco use disorder. Reports she has quit smoking Encounter for palliative care Results of Consultation: Patient accepted and enrolled into palliative care Palliative Care Recommendations: Patient goals: To live as long as possible, ameliorate symptoms Code status: Full code Attending provider to follow patient if enrolled in Hospice: not applicable Community support services to be started: Supportive care oncology clinic Adjustments to medications: Added OxyContin 50 mg twice daily and will continue to follow for adjustments, discontinued Colace, added senna for constipation Slow transit constipation Colace is not been found to be effective in treating constipation. Patient also reflects that even though she takes Colace multiple days in a row she does not find it to be beneficial to her. She is agreeable to discontinue Colace and add senna instead. Goals of Care/Disposition Currently, Sera is listed as a full code She endorses a full CODE STATUS is reflective of her goals. We discussed advance care planning. She has never completed healthcare power of commercial litigation attorney. We discussed legal surrogate decision making hierarchy. She would not want her family making decisions regarding her medical care. Provided information regarding healthcare power of commercial litigation attorney. She would like totalk to her friend about this. We offered to complete healthcare power of commercial litigation attorney here in hospitalbut if she is discharged prior to completing this she knows she can complete healthcare power of commercial litigation attorney paperwork outpatient as well. Problem List/Past Medical History Ongoing Acute kidney injury Anxiety Asthma Bilateral flank pain Cancer related pain Cervical cancer Complicated UTI (urinary tract infection) Decreased appetite Dehydration DVT prophylaxis History of chemotherapy History of radiation therapy Left flank pain Moderate protein-calorie malnutrition Nausea and vomiting Nephrostomy status Obstructive uropathy Port-A-Cath in place Premature menopause Pyelonephritis Historical Cervicitis Chronic kidney disease, stage 3 (moderate) Encounter for antineoplastic chemotherapy ESBL (extended spectrum beta-lactamase) producing bacteria infection ESBL (extended spectrum beta-lactamase) producing bacteria infection History of COVID-19 Hydronephrosis of left kidney Mass of cervix Tinnitus Procedure/Surgical History Nephrostomy with tube drainage: 01/10/21 JJ stent: 11/15/20 Radiation: 06/2020 Cervical biopsy: 2019 Tumor cells, benign: 2001 Nephrostomy with tube drainage Medications Inpatient Colace, 100 mg= 1 cap(s), Oral, BID Dilaudid, 1 mg= 1 mL, IV Push, q2h, PRN Dilaudid, 0.5 mg= 0.5 mL, IV Push, q2h, PRN gabapentin, 300 mg= 1 cap(s), Oral, qHS lidocaine 1% preservative-free injectable solution, 2.5 mg= 0.25 mL, Intradermal, prep pharm lidocaine 1% preservative-free injectable solution, 2.5 mg= 0.25 mL, Intradermal, prep pharm LORazepam, 1 mg= 1 tab(s), Oral, q8h, PRN mirtazapine, 15 mg= 1 tab(s), Oral, qDay NS 1,000 mL, 1000 mL, Intravenous Ofirmev IVPB, 1000 mg= 100 mL, IV Piggyback, q6h oxyCODONE 5 mg oral tablet ( IMMEDIATE release ), 10 mg= 2 tab(s), Oral, q4h Protonix, 40 mg= 1 tab(s), Oral, qDayAC Reglan, 10 mg= 2 mL, IV Push, q6h Sterile Water SKILLED NURSING, 2.2 mL, IV Push, prep pharm Toradol, 15 mg= 1 mL, IV Push, q6h Zofran, 4 mg= 2 mL, IV Push, q6h Home Calcium Plus Vitamin D3 600 mg-12.5 mcg (500 intl units) oral capsule, 2 cap(s), Oral, qDay gabapentin 300 mg oral capsule, 1 cap(s), Oral, qHS LORazepam 1 mg oral tablet, 1 mg= 1 tab(s), Oral, q8h LORazepam 1 mg oral tablet, 1 mg= 1 tab(s), Oral, q8h, PRN mirtazapine 15 mg oral tablet, 15 mg= 1 tab(s), Oral, qDay ondansetron 4 mg oral tablet, 4 mg= 1 tab(s), Oral, q6h, PRN ondansetron 4 mg oral tablet, 4 mg= 1 tab(s), Oral, q6h, PRN, 1 refills oxyCODONE 10 mg oral tablet ( IMMEDIATE release ), 10 mg= 1 tab(s), Oral, q6h, PRN Allergies Oranges penicillin Social History Alcohol - Denies Alcohol Use, 06/13/2020 Use: Current. Type: Beer. Frequency: 1-2 times per week., 12/21/2021 Home/Environment - No Risk, 06/13/2020 Domestic Concerns: None. Living situation: Home/Independent. Safe place to go: Yes. Lives In: Mobile home, 1st floor bedroom, 1st floor bathroom. Current Home Treatments None. Professional Skilled Services or Special Community Resources None. Financial concerns: No. Marital Status: Unmarried., 06/13/2020 Nutrition/Health - No Risk, 06/13/2020 Type of diet: Regular. Appetite Fair. Eating Difficulties None. Caffeine intake amount: 1 can pop per day., 06/13/2020 Sexual Sexually active: Yes. First active at age: 18 Years. Current partners: 1. Number of lifetime partners: 7. Self described orientation: Straight or heterosexual. Other contraceptive use: condoms. History of sexual abuse: No. Gender Identity: Identifies as female., 04/12/2020 Substance Abuse - Denies Substance Abuse, 06/13/2020 Use: Never., 04/12/2020 Tobacco Nicotine Use: Former smoker, quit more than 30 days ago. Exposure to Tobacco Smoke Lives in non-smoking home. Started at age: 19 Years. Stopped at age: 32 Years. Smokeless Tobacco Use: Never., 07/09/2023 Nicotine Use: 5-9 cigarettes (between 1/4 to 1/2 pack)/day in last 30 days. Type: Cigarettes. Tobacco use per day: 10. Number of years: 10. Started at age: 19 Years. Previous treatment: None. Ready to change: Yes., 04/12/2020 Family History Alcohol abuse: Father. Asthma: Mother. Bladder cancer: Negative: Mother, Father, Sister, Brother, Daughter, Son and Grandparent. Breast cancer: Mother. COPD - Chronic obstructive pulmonary disease: Mother. Cancer: Sister. Diabetes: Grandparent. Heart attack: Mother. Heart disease: Mother. Hypertension: Mother. Kidney stone: Mother. Renal cancer: Negative: Mother, Father, Sister, Brother, Daughter, Son and Grandparent. Stroke: Father and Grandparent. Substance abuse: Father. Code Status Code Status - Ordered -- 07/08/23 22:24:00 EDT, Full Code, Constant Order Digitally Signed by SANTINO SAWYER MD on 07/11/2023 02:36 PM [id number] Nurse Progress note patient states that she fell, she thinks she passed out. Neuro assessment negative, no evidence of injury. charge nurse notified Digitally Signed by JAMAL Ferrer on 07/10/2023 04:10 PM [facility] [id number] Note. MICRO - Microbiology PROCEDURE: Urine Culture [*1] SOURCE: Urine, Nephrostomy BODY SITE: COLLECTED DATE/TIME: 07/09/2023 03:52 EDT RECEIVED DATE/TIME: 07/09/2023 07:09 EDT START DATE/TIME: 07/09/2023 07:09 EDT FREE TEXT SOURCE: FINAL REPORTS Final Report [] Verified Date/Time/Personnel: 07/10/2023 14:16 EDT 10,000 - 50,000 cfu/ml Multiple bacterial morphotypes present. Probable Contamination. Suggest recollection if clinically indicated. Performing Locations *1: This test was performed at: [facility], [address] [place] [address], [id number] , [facility])07-10-2023 Note. MICRO - Microbiology PROCEDURE: Urine Culture [*1] SOURCE: Urine, Nephrostomy BODY SITE: COLLECTED DATE/TIME: 07/09/2023 03:54 EDT RECEIVED DATE/TIME: 07/09/2023 07:09 EDT START DATE/TIME: 07/09/2023 07:09 EDT FREE TEXT SOURCE: FINAL REPORTS Final Report [] Verified Date/Time/Personnel: 07/10/2023 14:16 EDT 10,000 - 50,000 cfu/ml Multiple bacterial morphotypes present. Probable Contamination. Suggest recollection if clinically indicated. Performing Locations *1: This test was performed at: [facility], [address] [place] [address], [id number] [facility])07-10-2023 NoteORIGINAL PROCEDURE: IR NEPHROSTOMY TUBE CHANGE MODERATE CONSCIOUS SEDATION 07/09/2023 HISTORY: ORDERING SYSTEM PROVIDED HISTORY: Reason for Exam: Overdue for nephrostomy tube exchange, last changed in April Routine nephroureteral stent check unchanged TECHNIQUE: Parada portions of the exam: 1. Retrieval of foreign body. 2. Antegrade nephrostogram. 3. Angioplasty of the ureter. 4. Replacement of nephroureteral stent with up sizing to 10 Andorran CONTRAST: 80 cc SEDATION: Moderate sedation was ordered and supervised by the attending with physician [id number] monitoring. Medications were provided and recorded by Radiology nurses. FLUOROSCOPY DOSE AND TYPE: Radiation Exposure Index: 26.1 minutes of fluoroscopic time was 344 AKA, DESCRIPTION OF PROCEDURE: Informed consent was obtained after a detailed explanation of the procedure including risks, benefits, and alternatives. Webster protocol was observed. Sterile gowns, masks, hats and gloves utilized for maximal sterile barrier. FINDINGS: The patient is initially placed prone on the angiographic table. An antegrade nephrostogram was obtained. There is immediate filling of the kidney collecting system with a small amount of drainage seen through the nephroureteral stent into the bladder. At this point, decision was made to attempt exchange of an 8 Andorran nephroureteral stent. Under fluoroscopic guidance, a all 3 5 stiff glide wires attempts to be advanced however the renal portion of the nephroureteral stent appears completely occluded. Despite several maneuvers, the ureteral portion is unable to be cannulized with the Glidewire. The patient also history is history of cervical cancer and radiation in the pelvis. An attempt is made to pole antalgia on the nephroureteral stent to pull it out however, this is also unable to be achieved. The patient experienced significant discomfort where any manipulation is attempted. The patient also has history of prior angioplasty of the distal ureter likely causing the ureters scar and the stent scarring place para despite significant amount of backwards pressure, the 8 Andorran nephroureteral stent is unable to be pulled. At this point, a decision was made to attempt to peel off the ureteral portion of the nephroureteral stent from the ureteral wall. A mukund wire is advanced and used to cannulized the nephro track with a Kumpe the catheter and stiff Glidewire advanced there is superficial to the nephroureteral stent through the ureter. The loop of the 035 stiff glide is used to attempt to slice the ureteral portion off of the ureter wall. After several unsuccessful attempts to pass the loop, the nephroureteral stent is again tab done however, only small amount of in is able to pulled back. Pelvic scarring is suspected. At this point, a decision was made to perform angioplasty of the distal ureter to allow for the ureteral portion to be freed up. And given that there is very limited space a 014 wire is advanced into the bladder where a 3 x 220 mm balloon followed by a 4 x 220 mm balloon is advanced or angioplasty of the distal ureter is performed. Following angioplasty of the ureter, the nephroureteral stent successfully pulled. However it is noted that the 014 wire has broken off and is located in the bladder. At this point, a 7 Andorran 45 cm sheath is now advanced into the bladder from the nephrostomy tube access through the ureter at which point, a 15 mm 6 Andorran snare is advanced and used to snare the broken piece of 014 wire with retrieval of foreign body performed. Next, a new nephroureteral stent is advanced. Given that the 8 Andorran had occluded previously, decision was made to place a 10 Andorran nephroureteral stent. Over the stiff glide, a 10 x 24 cm nephroureteral stent is place with pigtails formed in the bladder and kidney collecting system. IMPRESSION: Plan: The patient will return every 2-3 weeks with general anesthesia to obtain nephroureteral stent check and change until she proceeds with surgery in which ileostomy is planned. Interpreted by: Johanna Jean Baptiste Preliminary Report By: Johanna Jean Baptiste Electronically signed By Johanna Jean Baptiste Dictated Date: 07/10/2023 1:25:16 PM Prelim Date: 07/10/2023 1:33:51 PM Sign Date: 07/10/2023 1:33:51 PM Ordering Provider: SASHA [facility] ([place])07-10-2023 Note ORIGINAL PROCEDURE: VR PORTOGRAPHY MODERATE CONSCIOUS SEDATION 07/09/2023 HISTORY: ORDERING SYSTEM PROVIDED HISTORY: Reason for Exam: port not aspirating TECHNIQUE: The previously accessed MediPort (Lujan needle) was injected with contrast and fluoroscopic images are obtained. CONTRAST: 20 cc of Visipaque SEDATION: Moderate sedation was ordered and supervised by the attending with physician [id number] monitoring. Medications were provided and recorded by Radiology nurses. FLUOROSCOPY DOSE AND TYPE: Radiation Exposure Index: 12 AK, total fluoro time was 22 seconds DESCRIPTION OF PROCEDURE: Informed consent was obtained after a detailed explanation of the procedure including risks, benefits, and alternatives. Webster protocol was observed. Sterile gowns, masks, hats and gloves utilized for maximal sterile barrier. FINDINGS: Contrast injection demonstrates good aspiration with a very tiny fibrin sheath at the tip of the port. The patient had been to tPA'd over the last hour therefore, this fibrin sheath is probably decreased. IMPRESSION: Patency of port with good aspiration and infusion. Tiny fibrin sheath seen at the tip. The patient uses a port once every month therefore at this point, port revision is not recommended. I stripping of the fibrin sheath can be considered in the future. Interpreted by: Johanna Jean Baptiste Preliminary Report By: Johanna Jean Baptiste Electronically signed By Johanna Jean Baptiste Dictated Date: 07/10/2023 10:40:29 AM Prelim Date: 07/10/2023 10:42:17 AM Sign Date: 07/10/2023 10:42:17 AM [facility]ing [facility] ([place])07-10-2023 Note System generated consult for an established nephrostomy tube and was exchanged yesterday. Securement DSG: gauze & transparent DSG is dry and intact. Recommend to change as needed at least every 7days. Digitally Signed by Rhea Pruett RN, Skin Team on 07/10/2023 09:37 AM [facility] [id number] Note IR Procedure Record Summary Primary Physician: JOHANNA JEAN BAPTISTE MD Finalized Date/Time: 07/10/23 09:11:10 Pt. Name: LALY NAVAS /Sex: 1990 Female Med Rec #: [id number] Physician: FLIP MARTIN MD Financial #: [id number] Pt. Type: I Room/Bed: 72/A Admit/Disch: 07/08/23 20:11:38 - Institution: Allergies identified in patient's electronic medical record at time of printing on 07/10/23 Entry 1 Entry 2 Substance Oranges penicillin Reaction Type Allergy Allergy Last Modified By: JAMAL Scott RN Evan 02/03/21 10/04/22 08:25:47 17:13:24 Case Attendance- IR Entry 1 Entry 2 Entry 3 Case Attendee JOHANNA JEAN BAPTISTE MD, Tracie N RN Polo, RN Alivia Boyce Role Performed Primary Surgeon Procedure Nurse Western Philosophy Professor 1 Details Time In 07/09/23 11:45:00 07/09/23 11:45:00 07/09/23 11:45:00 Time Out 07/09/23 13:45:00 07/09/23 12:22:00 07/09/23 12:22:00 Procedure/Preference IR Nephrostomy Tube IR Nephrostomy Tube IR Nephrostomy Tube Card Change Lt Guide SN, IR Change Lt Guide SN, IR Change Lt Guide SN, IR Port Check W/Guide SN, Port Check W/Guide SN, Port Check W/Guide SN, IR Retrieval FB IR Retrieval FB IR Retrieval FB Intravasc Perc W/Guide S Intravasc Perc W/Guide S Intravasc Perc W/Guide S Last Modified By: Sam Henry, Systems IntegratorMendel Henry, Systems IntegratorMendel Piper 07/09/23 Lida Piper 07/09/23 Lida Veronique 07/09/23 14:10:01 14:10:01 14:10:01 Entry 4 Entry 5 Entry 6 Case Attendee Padmini Fairchild Systems IntegratorMarisa Jaramillo RN Role Performed Scrub Technologist Circulating Technologist Procedure Nurse Details Time In 07/09/23 11:45:00 07/09/23 11:45:00 07/09/23 12:22:00 Time Out 07/09/23 12:22:00 07/09/23 12:22:00 07/09/23 14:09:00 Procedure/Preference IR Nephrostomy Tube IR Nephrostomy Tube IR Nephrostomy Tube Card Change Lt Guide SN, IR Change Lt Guide SN, IR Change Lt Guide SN, IR Port Check W/Guide SN, Port Check W/Guide SN, Port Check W/Guide SN, IR Retrieval FB IR Retrieval FB IR Retrieval FB Intravasc Perc W/Guide S Intravasc Perc W/Guide S Intravasc Perc W/Guide S Last Modified By: Elaine Systems IntegratorMendel Henry Systems Integrator Elaine Systems Integrator Lida Piper 07/09/23 Lida K 07/09/23 Lida Veronique 07/09/23 14:10:01 14:10:01 14:10:01 Entry 7 Entry 8 Entry 9 Case Attendee Karolina Prater, Systems IntegratorCristina Mckeon RN Role Performed Scrub Technologist Circulating Technologist Procedure Nurse Details Time In 07/09/23 12:22:00 07/09/23 12:22:00 07/09/23 13:03:00 Time Out 07/09/23 14:09:00 07/09/23 14:09:00 07/09/23 14:09:00 Procedure/Preference IR Nephrostomy Tube IR Nephrostomy Tube IR Nephrostomy Tube Card Change Lt Guide SN, IR Change Lt Guide SN, IR Change Lt Guide SN, IR Port Check W/Guide SN, Port Check W/Guide SN, Port Check W/Guide SN, IR Retrieval FB IR Retrieval FB IR Retrieval FB Intravasc Perc W/Guide S Intravasc Perc W/Guide S Intravasc Perc W/Guide S Last Modified By: Elaine Systems Integrator Elaine Systems Integrator Elaine Systems Integrator Lida K 07/09/23 Lida K 07/09/23 Lida K 07/09/23 14:10:01 14:10:01 14:10:01 Radiology Procedures- IR Entry 1 Entry 2 Entry 3 Procedure/Preference IR Nephrostomy Tube IR Port Check W/Guide SN IR Retrieval FB Card Change Lt Guide SN Intravasc Perc W/Guide SN Modifiers Actual Procedure IR nephrostomy tube IR nephrostomy tube IR Retrieval FB change change Intravasc Perc W/Guide SN Actual Procedure Continued Primary Procedure Yes No No Primary Surgeon JOHANNA JEAN BAPTISTE MD, SALMAN S MD MUFTI, SALMAN S MD Anesthesia/Sedation Local, IV Sedation Local, IV Sedation Local, IV Sedation Type Additional Procedure Times Start 07/09/23 12:20:00 07/09/23 12:20:00 07/09/23 12:20:00 Stop 07/09/23 13:45:00 07/09/23 13:45:00 07/09/23 13:45:00 Specialty Service SN Radiology Procedure SN Radiology Procedure SN Radiology Procedure EBL 5 mL 0 mL 0 mL Last Modified By: Sam Henry Rad Tech Hultman, Rad Tech Amanda K 07/09/23 Lida Piper 07/09/23 Lida Piper 07/09/23 14:10:23 14:10:30 14:10:42 Radiology Procedure Details - IR Entry 1 Radiology Sedation Case Times Sedation Start Time 07/09/23 12:22:00 Sedation Stop Time 07/09/23 13:45:00 Sedation Total Time 1hr 23min Radiology - Fluid/Drainage Radiology Contrast Contrast Used? Yes Dose 100 mL Medication OMNIPAQUE 300 50ML 10/PK Y-530 [facility] [id number] Radiology Flouroscopy Fluoroscopy Used? Yes Fluoro Dose (mGy) 351.95 Fluoro Time 0.2min/26.1min Radiology Local Local Used? Yes Local Type: lidocaine Local Dose 20mL Radiology Procedure Site Site/Location left back Site Condition No complications Dressing Type Gauze sponge 4 X 4, Transparent Last Modified By: Ana Tipton 07/10/23 09:11:05 General Case Data - IR Entry 1 Case Information Room IR 17 Case Level IR Level 3 Wound Class None Specialty SN Radiology Procedure ASA Class None Diagnosis Preop Diagnosis Intractable left flank Postop Same As Preop Yes pain Postop Diagnosis Intractable left flank pain Last Modified By: Sam Henry 07/09/23 13:30:01 Medication Administration- IR Entry 1 Entry 2 Entry 3 Medication Versed Fentanyl Dilaudid Time Administered 07/09/23 12:25:00 07/09/23 12:25:00 07/09/23 12:22:00 Route of Admin IV Push IV Push IV Push Dose 1mg 50mcg 1mg Volume VORB * *Verbal Order Read Back (VORB) is required for NON- PHYSICIAN administration of medications. Administered by No No No Physician? Administered by: Marisa Gastelum RN, Hannah RN Aller, Tracie N RN Verbal Order Read JOHANNA JEAN BAPTISTE MD, SALMAN S MD MUFTI, SALMAN S MD Back from: Last Modified By: Marisa Gastelum RN, Hannah RN Hill, Hannah RN 07/09/23 12:25:19 07/09/23 12:25:19 07/09/23 12:25:19 Entry 4 Entry 5 Entry 6 Medication Versed Fentanyl Dilaudid Time Administered 07/09/23 12:30:00 07/09/23 12:30:00 07/09/23 12:35:00 Route of Admin IV Push IV Push IV Push Dose 1mg 50mcg 1mg Volume VORB * *Verbal Order Read Back (VORB) is required for NON- PHYSICIAN administration of medications. Administered by No No No Physician? Administered by: Marisa Gastelum RN, Hannah RN Aller, Tracie N RN Verbal Order Read JOHANNA JEAN BAPTISTE MD, SALMAN S MD MUFTI, SALMAN S MD Back from: Last Modified By: Sam Henry, Systems Integrator Elaine, Systems Integrator Lida K 07/09/23 Lida K 07/09/23 Lida K 07/09/23 13:03:12 13:03:12 13:04:16 Entry 7 Entry 8 Entry 9 Medication Versed Dilaudid Versed Time Administered 07/09/23 12:35:00 07/09/23 12:43:00 07/09/23 12:43:00 Route of Admin IV Push IV Push IV Push Dose 2mg 1mg 2mg Volume VORB * *Verbal Order Read Back (VORB) is required for NON- PHYSICIAN administration of medications. Administered by No No No Physician? Administered by: Marisa Gastelum RN, Tracie N RN Hill Marisa RN Verbal Order Read JOHANNA JEAN BAPTISTE MD, SALMAN S MD MUFTI, SALMAN S MD Back from: Last Modified By: Sam Henry, Systems Integrator Elaine, Systems Integrator Lida K 07/09/23 Lida K 07/09/23 Lida K 07/09/23 13:04:43 13:06:49 13:06:49 Entry 10 Entry 11 Entry 12 Medication Benadryl Toradol haldol Time Administered 07/09/23 12:45:00 07/09/23 12:45:00 07/09/23 13:13:00 Route of Admin IV Push IV Push IV Push Dose 50mg 30mg 2mg Volume VORB * *Verbal Order Read Back (VORB) is required for NON- PHYSICIAN administration of medications. Administered by No No No Physician? Administered by: Marisa Gastelum RN, Hannah RN Hill, Hannah RN Verbal Order Read JOHANNA JEAN BAPTISTE MD, SALMAN S MD MUFTI, SALMAN S MD Back from: Last Modified By: Sam Henry, Systems Integrator Elaine, Systems Integrator Lida K 07/09/23 Lida K 07/09/23 Lida K 07/09/23 13:08:21 13:08:21 13:21:18 Entry 13 Entry 14 Medication Versed Dilaudid Time Administered 07/09/23 13:20:00 07/09/23 13:30:00 Route of Admin IV Push IV Push Dose 2mg 1mg Volume VORB * *Verbal Order Read Back (VORB) is required for NON- PHYSICIAN administration of medications. Administered by No No Physician? Administered by: Marisa Gastelum RN, Tracie N RN Verbal Order Read JOHANNA JEAN BAPTISTE MD, SALMAN S MD Back from: Last Modified By: Sam Henry, Systems Integrator Lida K 07/09/23 Lida K 07/09/23 13:21:18 13:31:12 Procedure Case Times- IR Entry 1 Patient In Procedure Patient In OR 07/09/23 11:45:00 Patient Out of OR 07/09/23 14:09:00 Procedure Start/Stop Procedure Start Time 07/09/23 12:20:00 Procedure Stop Time 07/09/23 13:45:00 Last Modified By: Sam Henry 07/09/23 14:10:00 Immediate Post Procedure Note - IR Entry 1 Immediate Post Yes Procedure Note displayed for Physician to review Closure Technique Closure Technique Other than Primary Last Modified By: Cristina Simons RN 07/09/23 11:59:58 Immediate Post Procedure Note - IR Signed By: JOHANNA JEAN BAPTISTE MD 07/09/23 13:49 Allergy Information- IR Entry 1 Allergies Reviewed? Yes Allergies Reviewed Patient With Last Modified By: Cristina Simons RN 07/09/23 11:56:59 Radiology Protocols/Time Out- IR Entry 1 Preprocedure Clinician Verifies Correct patient ID When Clinically Confirmation of correct using name & date Indicated side(s) and site(s), or MRN, Accurate Correct diagnostic and procedure, complete radiology tests Informed Consent, H & P available, Required update immediately blood products, prior to procedure, if implants, devices applicable and/or special equipment available, Preop antibiotics sent with patient/available in OR OR/Procedure Room/Bedside Time 07/09/23 12:22:00 Clinician Verifies Correct patient identity including EMR & records using name and date or medical record number, Accurate procedure consent form, Correct patient position, Necessary equipment is available, Anticipated non-routine events with surgical team (case duration, estimated blood loss, patient specific concerns)., Parada patient factors for recovery and management identified with surgical team. Team Members JOHANNA JEAN BAPTISTE MD, Present for Time Out Cristina Simons RN, JAMAL Cuellar Fierstos, Megan R Systems IntegratorAngela Systems Integrator Grace Instrument Sterility Procedure IR Nephrostomy Tube Change Lt Guide SN, IR Port Check W/Guide SN, IR Retrieval FB Intravasc Perc W/Guide S Last Modified By: Sam Henry 07/09/23 13:37:24 Skin Prep- IR Entry 1 Procedure IR Nephrostomy Tube Change Lt Guide SN, IR Port Check W/Guide SN, IR Retrieval FB Intravasc Perc W/Guide S Skin Prep Prep Area Back Side Left By Padmini Fairchild Prep Agents Chloraprep Tech Hair Removal Method N/A Last Modified By: Sam Henry 07/09/23 13:37:25 Patient Positioning- IR Entry 1 Procedure IR Nephrostomy Tube Body Position OP Prone Change Lt Guide SN, IR Retrieval FB Intravasc Perc W/Guide S Feet Uncrossed? Yes Pressure Points Yes Checked Last Modified By: Sam Henry 07/09/23 13:37:25 Radiology Procedure Plan - IR Entry 1 Radiology - Nursing Care Plan Outcome Statement The patient Outcome Statement The patient receives demonstrates knowledge Cont. appropriate of the expected medication(s), safely responses to the administered during the operative/invasive perioperative/invasive procedure., The period., The patient is patient's value system, free from signs and lifestyle, ethnicity, symptoms of injury and culture are caused by extraneous considered, respected, objects (equipment, and incorporated in the instrumentation, perioperative plan of sponges, or sharps). care., The patient is free from signs and symptoms of infection. Radiology - Action Plan Outcomes Met? Yes Mottler Operator Cristina Simons RN Completing Procedure Plan Last Modified By: Cristina Simons RN 07/09/23 12:00:09 Case Comments Added [place] CAtheter and 2nd stiff glidewire used from bag and tag product wrappers so patient couldbe charged appropriately. 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 She has a left nephrostomy tube in place. She has chronic pyelonephritis. She has cancer related pain. Patient has a known recurrent history of complicated urinary tract infection. These include with bacteria such as ESBL/E. coli/Enterococcus/Klebsiella pneumonia. She has had multiple admissions in the past for the same problem. She was most recently admitted to [facility] on 04/27 to05/07/23. She was subsequently discharged on daptomycin and ciprofloxacin to continue until 05/16. She was also seen at [facility] on 07/07. At that time, she had recently finished a course of ciprofloxacin and her repeat urinalysis was consistent with UTI. CT abdomen/pelvis was performed which showed Left-sided nephrostomy is present extending to the bladder. There is an irregularly shaped hypodensefocus in the upper pole of the kidney without enhancement. Mucosal thickening versus underfilling of the colon. Patient was placed on Bactrim DS twice daily x10 days for outpatient management per . She presented to [facility] again 07/08/23 with complaints of dysuria, flank pain, vomiting with suspected UTI/kidney infection per patient. A urinalysis and urine culture were obtained there, however records are not with the patient upon evaluation. She was transferred from [facility] emergency department to [place] emergency department with plan for direct admission to [facility]. She is currently awaiting bed placement at the time of evaluation. Today she notes for the past 3 days she has had vomiting with associated flank pain bilaterally. She notes that it is more severe on the left where her nephrostomy tube is in place. She also notes vaginal pain, namely dysuria for 1 to 2 hours after urinating. She notes some diarrhea x2 days as well as some intermittent chills. She denies fevers, chest pain, difficulty breathing, constipation, new vaginal or vulvar lesions. 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 Menarche age 14. Amenorrheic since initiation of Chemoradiation. Denies mammogram ever. Colonoscopy in 2019. Denies history of STDs. Not sexually active. Family History Mother with breast cancer Sister with cervical cancer Grandmother with cervical cancer Aunts with cervical cancer Cousins with cervical cancer ONCOLOGY HISTORY: - 04/04/2020: CT scan abdomen and pelvis. [facility]. Thickened cervical wall with involvementof the lower uterine segment, highly concerning for malignancy. There is involvement of the left ureter resulting in left hydronephrosis and hydroureter. Mildly enlarged right external iliac lymph node measuring 1.4 x 1.1 x 1.2 cm. - 04/13/2020: CT thorax. No evidence of active malignancy in the thorax. - 04/13/2020: IR nephrostomy tube insertion on the left. - 04/13/2020: MRI of the pelvis with contrast. Large uterine mass with extension to the pelvic fat and possible involvement of the mesorectal fascia. There is a prominent but not pathologically enlarged left pelvic lymph node which could be metastatic. Large cervical mass measuring 4.7 x 5.8 cm. - : Examination under Anesthesia, Cystourethroscopy, Cervical biopsies, Proctoscopy - 04/26/2020 Week #1 Cisplatin 40mg/m2 - 05/03/2020 Week #2 Cisplatin 20mg/m2 - 05/10/2020 Week #3 Cisplatin 20mg/m2 - 05/17/2020 Week #4 Cisplatin 20mg/m2 - 05/24/2020 Week #5 Cisplatin 20mg/m2 - 05/31/2020 Week #6 Cisplatin 20mg/m2 - 08/18/2020: CT urogram. Left percutaneous nephrostomy tube in place. Minimal left upper pole striated nephrogram. This finding is nonspecific and may be seen with inflammation or obstruction. Sincethere is no significant adjacent infiltrative changes within the perinephric fat, this could potentially be indicative of minimal left side obstruction. Improvement of the cervix lesion since the prior exam, diminished in size since prior study. - 12/07/2020 PET/CT no abnormal uptake at the uterine cervix, FDG avid lymphadenopathy or metastatic disease is seen. - 2020 CT abdomen and pelvis decreased left nephrogram with ectasia of the left upper tract and enhancement of the uroepithelium lining is worrisome for obstruction and/or infection following interval ureteral stent removal. - 01/09/2021 MRI of the pelvis treated disease with no significant residual tumor identified on this exam. Mild infiltrative change within the deep pelvic fat is presumably the result of radiation therapy, and attention to follow-up is recommended. Re-demonstration of mildly dilated left ureter and collecting system, compatible of history of pyelonephritis. RADIATION SUMMARY: Dates of treatment: 04/26/2020 - 06/07/2020 Treatment details : Initially the pelvis was treated to a dose of 4500 cGy in 25 fractions using intensity modulated radiation therapy with 6 MV photons. Following this dose the parametrium was boosted an additional 540 cGy in 3 fractions through AP PA quintero with midline block taken her final pelvic tumor dose to 5040 centigray. She was treated with concurrent cisplatin based chemotherapy. The patient then underwent for intracavitary brachii therapy applications with [id number] iridium 192afterloading device utilizing a tandem and ring. 2400 cGy was delivered at 600 cGy per fraction to point A from June 14, 2020 through July 11, 2020. The plan was to deliver 5 brachytherapy applications, however, the patient failed to show for surgery 3 times. Therefore, the decision to foregothe last treatment was made as it had been nearly 3 months since initiating therapy. Course: C1 Pelvis Treatment Site Ref. ID Energy Dose/Fx (cGy) #Fx Total Dose (cGy) Start Date End Date Elapsed Days IMRT SEAM RUBBER Pelvis 6X 180 4,500 04/26/2020 06/02/2020 37 3D PM Bst 18X 180 540 06/05/2020 06/07/2020 2 GENETIC TESTING: - [facility] No reportable somatic or germline pathogenic or actionable mutations were found. Tumor mutational burden was 39th percentile. Microsatellite instability status stable. Somatic variants of unknown significance were found in PRKDC, TRAF3, AGUSTIN, ERBB4, and CXCR4. Variants of unknown significance and germline mutations were found in BRCA2 and RAD51C.DNA mismatch repair protein expression was normal. PD-L1 expression was positive. Review of Systems See HPI for pertinent positives. A full review of systems was conducted and found otherwise to be negative. Physical Exam Vitals and Measurements T: 36.4 C (Oral) TMIN: 36 C (Oral) TMAX: 36.4 C (Oral) HR: 71 RR: 18 BP: 163/113 SpO2: 97% WT: 62.8kg Weight Dosing Weight: 62.8 kg (07/08/23) General: A&O x3 HEENT: normocephalic, atraumatic Cardio: RRR, no murmurs, no rubs, gallops Lungs: Breathing w/out difficulty, no use of accessory muscles, clear to auscultation bilaterally GI: Soft, mild tenderness left lower quadrant, otherwise nontender, active bowel sounds, nephrostomy tube in place on left side, no erythema, or drainage at insertion site. Urostomy bag with approximately 50 cc of clear urine. No significant flank tenderness on the right side. Mild tenderness to the left side. Extremities: non-edematous, neg Homans sign Neuro: Normal sensation Psychiatric: Normal affect, normal demeanor. Well groomed. Non-pressured speech. Skin: warm, no rashes, Port-A-Cath in place at right chest Lab Results CBC, CMP, urinalysis, urine culture, nephrostomy culture Imaging Results and Diagnostics Pap smear 05/22/2023 Atypical from cells of undetermined significance (ASCUS). HPV high-risk negative. CT abdomen/pelvis 07/07/2023 Findings: Liver: Fatty change of the liver are present. There is no evidence of focal abnormality. Biliary: Normal. No visible dilatation or calcification. Pancreas: Normal. No lesion, fluid collection, ductal dilatation, or atrophy Spleen: Normal. No enlargement or focal lesion. Kidneys: Right kidney is unremarkable. There is a left-sided nephrostomy tube extending to the bladder. There is an irregular shaped hypointense focus in the upper pole of the left kidney. Adrenals: Normal. No mass or enlargement. Aorta/vascular: Normal. No aneurysm or dissection. Retroperitoneum: Normal. No mass or adenopathy. Bowel/mesentery: There is underfilling versus mucosal thickening of the colon. There is no evidenceof obstructing lesion. Abdominal wall: Normal. No mass or hernia. Urinary bladder: Normal. No visible focal wall thickening, lesion, or calculus. Pelvic nodes: Normal. No adenopathy. Pelvic organs uterus is absent. Bones: Normal. No bony lesion or fracture. Lung bases: Normal. No visible pulmonary or pleural disease. Other: Negative. Conclusion: 1. Left-sided nephrostomy is present extending the bladder. There is an irregularly shaped hypointense focus of the portal kidney without enhancement. 2. Mucosal thickening versus underfilling of the colon. Assessment/Plan 1. 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 Discussed with IR, it is the uterus with post-radiation changes. Therefore, no biopsy recommended. - 04/27 CT A/P in ER showed similar mass as prior scan. Left collecting system and proximal ureteralwall thickening concerning for pyelitis/ascending UTI. New concern for sacral insufficiency fractures. - 05/22/2023 Pap smear showed Atypical from cells of undetermined significance (ASCUS). HPV high-risk negative. Plan for follow-up in 1 year for repeat Pap smear. - 07/07/23 CT A/P showed Left-sided nephrostomy is present extending the bladder. There is an irregularly shaped hypointense focus of the portal kidney without enhancement. Mucosal thickening versus underfilling of the colon. Otherwise normal. 2. Complicated UTI (urinary tract infection) - 02/23 urine culture showed ESBL, patient completed 4 weeks of ertapenem at that time - 04/27 UA positive for nitrites and large esterase. Nephrostomy urine culture positive for Klebsiella, Myroides, Enterococcus, Vagococcus. Patient underwent inpatient antibiotics. - CT A/P 04/27: Subcentimeter cysts suspected in the left. Left collecting system and proximal ureteral wall thickening concerning for pyelitis/ascending UTI. no comment on right kidney kidney. There is mild wall thickening and enhancement of the left renal pelvis and proximal ureter. -05/07/23 Subsequently discharged on daptomycin and ciprofloxacin until 05/16 -07/07/23 Patient presented to [facility] for UTI symptoms. - Urinalysis on 07/07 was remarkable for signs of UTI at [facility]. Patient was placed on BactrimDS twice daily x10 days for outpatient management after discussion with Dr. Hilliard. - 07/07/23 CT abdomen/pelvis obtained at that time showed Left-sided nephrostomy is present extendingto the bladder. There is an irregularly shaped hypodense focus in the upper pole of the kidney without enhancement. Mucosal thickening versus underfilling of the colon. -07/08 Patient again presents to [facility] with transfer to [facility] for direct admission. -Patient notes dysuria, flank pain, vomiting - Afebrile, VSS -Repeat UA/culture, culture of nephrostomy tube pending -We will continue outpatient Bactrim regimen pending culture results 3. Cancer related pain -Previous pain regimen MS Contin 45 mg BID. Oxycodone 5 mg & 10 mg q4hrs PRN breakthrough, Gabapentin 300mg qHS. PRN IV 0.5mg Dilaudid. -An anonymous tip was left on 06/[address] Martin's office indicating a concern that patient was selling her pain meds -Patient seen via telehealth visit on 06/22/2023. MS Contin was discontinued at that time. She was started on oxycodone 10 mg every 6 hours as needed for pain with plan for follow-up in 1 month. -Pain regimen while inpatient Oxycodone 10mg q6 hrs. Gabapentin 300mg qHS. IV Dilaudid breakthrough. 4. Nephrostomy status - Nephrostomy tube was exchanged on 04/29/2023 -Patient was scheduled with interventional radiology for nephroureteral tube change on 06/24/2023. Patient did not show for appointment. -Patient does not currently follow with a urologist. She was supposed to see Dr. Andrea at [facility]. Referral was sent to this provider to be scheduled end of May/early June. Patient did not dothis. -Discussion with Dr. Martin via telehealth visit, patient was encouraged again to follow-up with [facility] urology for possible nephrectomy in order to discontinue nephrostomy bag and prevent recurrent infections. This in order to ultimately discontinue pain medications for this problem. 5. Hypertension -new onset hypertension in ED evaluation. -Asymptomatic -BPs 160s/90s 110s -Admission laboratory work pending 6. Asthma -asymptomatic 7. Tobacco use -patient notes she has quit 8. Anxiety Continue home med Ativan 1 mg every 8 as needed for anxiety Mood stable 9. Sacral fracture - 04/27 CT with findings concerning for New serpiginous areas of sclerosis of both sacral ala, concerning for sacral insufficiency fractures - Patient has not undergone planned DEXA scan outpatient since last admission Patient is a 32-year-old with Stabe IIIB SCC of the cervix with recurrent urinary tract infections in the setting of left nephrostomy tube in place. Activity: Up ad marisa Diet: regular IVF: NS20 UOP: 50cc in nephrostomy bag Pain control: Oral oxycodone 10 mg every 6, IV Dilaudid breakthrough VTE prophylaxis: SCDs Code: Full Disposition: Pain management. Urinalysis, urine culture, culture of nephrostomy pending. Continue outpatient regimen of Bactrim pending culture results. Possible nephrostomy tube exchange. Ensure urology follow-up after discharge for definitive surgical management. Patient seen and examined with senior resident Dr. Jones Problem List/Past Medical History Ongoing Acute kidney injury Anxiety Asthma Bilateral flank pain Cancer related pain Cervical cancer Complicated UTI (urinary tract infection) Decreased appetite Dehydration DVT prophylaxis History of chemotherapy History of radiation therapy Left flank pain Moderate protein-calorie malnutrition Nausea and vomiting Nephrostomy status Obstructive uropathy Port-A-Cath in place Premature menopause Pyelonephritis Procedure/Surgical History Nephrostomy with tube drainage: 01/10/21 JJ stent: 11/15/20 Radiation: 06/2020 Cervical biopsy: 2019 Tumor cells, benign: 2001 Nephrostomy with tube drainage Medications Home Medications (8) Active Calcium Plus Vitamin D3 600 mg-12.5 mcg (500 intl units) oral capsule 2 cap(s), Oral, qDay gabapentin 300 mg oral capsule 1 cap(s), Oral, qHS LORazepam 1 mg oral tablet 1 mg = 1 tab(s), Oral, q8h LORazepam 1 mg oral tablet 1 mg = 1 tab(s), PRN, Oral, q8h mirtazapine 15 mg oral tablet 15 mg = 1 tab(s), Oral, qDay ondansetron 4 mg oral tablet 4 mg = 1 tab(s), PRN, Oral, q6h ondansetron 4 mg oral tablet 4 mg = 1 tab(s), PRN, Oral, q6h oxyCODONE 10 mg oral tablet ( IMMEDIATE release ) 10 mg = 1 tab(s), PRN, Oral, q6h Allergies Oranges penicillin Social History Alcohol - Denies Alcohol Use, 06/13/2020 Use: Current. Type: Beer. Frequency: 1-2 times per week., 12/21/2021 Home/Environment - No Risk, 06/13/2020 Domestic Concerns: None. Living situation: Home/Independent. Safe place to go: Yes. Lives In: Mobile home, 1st floor bedroom, 1st floor bathroom. Current Home Treatments None. Professional Skilled Services or Special Community Resources None. Financial concerns: No. Marital Status: Unmarried., 06/13/2020 Nutrition/Health - No Risk, 06/13/2020 Type of diet: Regular. Appetite Fair. Eating Difficulties None. Caffeine intake amount: 1 can pop per day., 06/13/2020 Sexual Sexually active: Yes. First active at age: 18 Years. Current partners: 1. Number of lifetime partners: 7. Self described orientation: Straight or heterosexual. Other contraceptive use: condoms. History of sexual abuse: No. Gender Identity: Identifies as female., 04/12/2020 Substance Abuse - Denies Substance Abuse, 06/13/2020 Use: Never., 04/12/2020 Tobacco Nicotine Use: 5-9 cigarettes (between 1/4 to 1/2 pack)/day in last 30 days. Type: Cigarettes. Tobacco use per day: 10. Number of years: 10. Started at age: 19 Years. Previous treatment: None. Ready to change: Yes., 04/12/2020 Immunizations hepatitis B pediatric vaccine: 0 unknown unit (06/16/01) hepatitis B pediatric vaccine: 0 unknown unit (06/21/98) measles/mumps/rubella virus vaccine: 0 unknown unit (06/16/01) Code Status Code Status - Ordered -- 07/08/23 22:24:00 EDT, Full Code, Constant Order Digitally Signed by ANGELA ALVARADO DO on 07/09/2023 04:30 AM [id number] Note ORIGINAL PROCEDURE: IR NEPHROSTOMY TUBE CHANGE MODERATE CONSCIOUS SEDATION 07/09/2023 HISTORY: ORDERING SYSTEM PROVIDED HISTORY: Reason for Exam: Overdue for nephrostomy tube exchange, last changed in April Routine nephroureteral stent check unchanged TECHNIQUE: Parada portions of the exam: 1. Retrieval of foreign body. 2. Antegrade nephrostogram. 3. Angioplasty of the ureter. 4. Replacement of nephroureteral stent with up sizing to 10 [place] CONTRAST: 80 cc SEDATION: Moderate sedation was ordered and supervised by the attending with physician [id number] monitoring. Medications were provided and recorded by Radiology nurses. FLUOROSCOPY DOSE AND TYPE: Radiation Exposure Index: 26.1 minutes of fluoroscopic time was 344 AKA, DESCRIPTION OF PROCEDURE: Informed consent was obtained after a detailed explanation of the procedure including risks, benefits, and alternatives. Webster protocol was observed. Sterile gowns, masks, hats and gloves utilized for maximal sterile barrier. FINDINGS: The patient is initially placed prone on the angiographic table. An antegrade nephrostogram was obtained. There is immediate filling of the kidney collecting system with a small amount of drainage seen through the nephroureteral stent into the bladder. At this point, decision was made to attempt exchange of an 8 [place] nephroureteral stent. Under fluoroscopic guidance, a all 3 5 stiff glide wires attempts to be advanced however the renal portion of the nephroureteral stent appears completely occluded. Despite several maneuvers, the ureteral portion is unable to be cannulized with the Glidewire. The patient also history is history of cervical cancer and radiation in the pelvis. An attempt is made to pole antalgia on the nephroureteral stent to pull it out however, this is also unable to be achieved. The patient experienced significant discomfort where any manipulation is attempted. The patient also has history of prior angioplasty of the distal ureter likely causing the ureters scar and the stent scarring place para despite significant amount of backwards pressure, the 8 Andorran nephroureteral stent is unable to be pulled. At this point, a decision was made to attempt to peel off the ureteral portion of the nephroureteral stent from the ureteral wall. A mukund wire is advanced and used to cannulized the nephro track with a Kumpe the catheter and stiff Glidewire advanced there is superficial to the nephroureteral stent through the ureter. The loop of the 035 stiff glide is used to attempt to slice the ureteral portion off of the ureter wall. After several unsuccessful attempts to pass the loop, the nephroureteral stent is again tab done however, only small amount of in is able to pulled back. Pelvic scarring is suspected. At this point, a decision was made to perform angioplasty of the distal ureter to allow for the ureteral portion to be freed up. And given that there is very limited space a 014 wire is advanced into the bladder where a 3 x 220 mm balloon followed by a 4 x 220 mm balloon is advanced or angioplasty of the distal ureter is performed. Following angioplasty of the ureter, the nephroureteral stent successfully pulled. However it is noted that the 014 wire has broken off and is located in the bladder. At this point, a 7 Andorran 45 cm sheath is now advanced into the bladder from the nephrostomy tube access through the ureter at which point, a 15 mm 6 Andorran snare is advanced and used to snare the broken piece of 014 wire with retrieval of foreign body performed. Next, a new nephroureteral stent is advanced. Given that the 8 Andorran had occluded previously, decision was made to place a 10 Andorran nephroureteral stent. Over the stiff glide, a 10 x 24 cm nephroure[address] stent is place with pigtails formed in the bladder and kidney collecting system. IMPRESSION: Plan: The patient will return every 2-3 weeks with general anesthesia to obtain nephroureteral stent check and change until she proceeds with surgery in which ileostomy is planned. Interpreted by: Johanna Jean Baptiste Preliminary Report By: Johanna Jean Baptiste Electronically signed By Johanna Jean Baptiste Dictated Date: 07/10/2023 1:25:16 PM Prelim Date: 07/10/2023 1:33:51 PM Sign Date: 07/10/2023 1:33:51 PM Ordering Provider: SASHA MONOhiohealth [facility] Medical [id number] Note ORIGINAL PROCEDURE: VR PORTOGRAPHY MODERATE CONSCIOUS SEDATION 07/09/2023 HISTORY: ORDERING SYSTEM PROVIDED HISTORY: Reason for Exam: port not aspirating TECHNIQUE: The previously accessed MediPort (Lujan needle) was injected with contrast and fluoroscopic images are obtained. CONTRAST: 20 cc of Visipaque SEDATION: Moderate sedation was ordered and supervised by the attending with physician [id number] monitoring. Medications were provided and recorded by Radiology nurses. FLUOROSCOPY DOSE AND TYPE: Radiation Exposure Index: 12 AK, total fluoro time was 22 seconds DESCRIPTION OF PROCEDURE: Informed consent was obtained after a detailed explanation of the procedure including risks, benefits, and alternatives. Webster protocol was observed. Sterile gowns, masks, hats and gloves utilized for maximal sterile barrier. FINDINGS: Contrast injection demonstrates good aspiration with a very tiny fibrin sheath at the tip of the port. The patient had been to tPA'd over the last hour therefore, this fibrin sheath is probably decreased. IMPRESSION: Patency of port with good aspiration and infusion. Tiny fibrin sheath seen at the tip. The patient uses a port once every month therefore at this point, port revision is not recommended. I stripping of the fibrin sheath can be considered in the future. 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 Discussed with IR, it is the uterus with post-radiation changes. Therefore, no biopsy recommended. - 04/27 CT A/P in ER showed similar mass as prior scan. Left collecting system and proximal ureteral wall thickening concerning for pyelitis/ascending UTI. New concern for sacral insufficiency fractures. - 05/22/2023 Pap smear showed Atypical from cells of undetermined significance (ASCUS). HPV high-risk negative. Plan for follow-up in 1 year for repeat Pap smear. - 07/07/23 CT A/P showed Left-sided nephrostomy is present extending the bladder. There is an irregularly shaped hypointense focus of the portal kidney without enhancement. Mucosal thickening versus underfilling of the colon. Otherwise normal. 2. Complicated UTI (urinary tract infection) - 02/23 urine culture showed ESBL, patient completed 4 weeks of ertapenem at that time - 04/27 UA positive for nitrites and large esterase. Nephrostomy urine culture positive for Klebsiella, Myroides, Enterococcus, Vagococcus. Patient underwent inpatient antibiotics. - CT A/P 04/27: Subcentimeter cysts suspected in the left. Left collecting system and proximal ureteral wall thickening concerning for pyelitis/ascending UTI. no comment on right kidney kidney. There is mild wall thickening and enhancement of the left renal pelvis and proximal ureter. -05/07/23 Subsequently discharged on daptomycin and ciprofloxacin until 05/16 -07/07/23 Patient presented to [facility] for UTI symptoms. - Urinalysis on 07/07 was remarkable for signs of UTI at [facility]. Patient was placed on Bactrim DS twice daily x10 days for outpatient management after discussion with Dr. Hilliard. - 07/07/23 CT abdomen/pelvis obtained at that time showed Left-sided nephrostomy is present extending to the bladder. There is an irregularly shaped hypodense focus in the upper pole of the kidney without enhancement. Mucosal thickening versus underfilling of the colon. -07/08 Patient again presents to [facility] with transfer to [facility] for direct admission. -Patient notes dysuria, flank pain, vomiting - Afebrile, VSS -Repeat UA/culture, culture of nephrostomy tube pending -We will continue outpatient Bactrim regimen pending culture results 3. Cancer related pain -Previous pain regimen MS Contin 45 mg BID. Oxycodone 5 mg & 10 mg q4hrs PRN breakthrough, Gabapentin 300mg qHS. PRN IV 0.5mg Dilaudid. -An anonymous tip was left on 06/[address] Martin's office indicating a concern that patient was selling her pain meds -Patient seen via telehealth visit on 06/22/2023. MS Contin was discontinued at that time. She was started on oxycodone 10 mg every 6 hours as needed for pain with plan for follow-up in 1 month. -Pain regimen while inpatient Oxycodone 10mg q6 hrs. Gabapentin 300mg qHS. IV Dilaudid breakthrough. 4. Nephrostomy status - Nephrostomy tube was exchanged on 04/29/2023 -Patient was scheduled with interventional radiology for nephroureteral tube change on 06/24/2023. Patient did not show for appointment. -Patient does not currently follow with a urologist. She was supposed to see Dr. Andrea at [facility]. Referral was sent to this provider to be scheduled end of May/early June. Patient did not do this. -Discussion with Dr. Martin via telehealth visit, patient was encouraged again to follow-up with [facility] urology for possible nephrectomy in order to discontinue nephrostomy bag and prevent recurrent infections. This in order to ultimately discontinue pain medications for this problem. 5. Hypertension -new onset hypertension in ED evaluation. -Asymptomatic -BPs 160s/90s 110s -Admission laboratory work pending 6. Asthma -asymptomatic 7. Tobacco use -patient notes she has quit 8. Anxiety Continue home med Ativan 1 mg every 8 as needed for anxiety Mood stable 9. Sacral fracture - 04/27 CT with findings concerning for New serpiginous areas of sclerosis of both sacral ala, concerning for sacral insufficiency fractures - Patient has not undergone planned DEXA scan outpatient since last admission Patient is a 32-year-old with Stabe IIIB SCC of the cervix with recurrent urinary tract infections in the setting of left nephrostomy tube in place. Activity: Up ad marisa Diet: regular IVF: NS20 UOP: 50cc in nephrostomy bag Pain control: Oral oxycodone 10 mg every 6, IV Dilaudid breakthrough VTE prophylaxis: SCDs Code: Full Disposition: Pain management. Urinalysis, urine culture, culture of nephrostomy pending. Continue outpatient regimen of Bactrim pending culture results. Possible nephrostomy tube exchange. Ensure urology follow-up after discharge for definitive surgical management. Patient seen and examined with senior resident Dr. Jones Addendum by ENZO JONES DO on July 09, 2023 05:59:54 EDT Patient seen and evaluated with bk resident. Agree with above. Concern for complicated UTI, with history of complicated UTIs will start on Meropenem 1g q8h and stop Bactrim. Await UA/Ucx results. Collected as clean catch and from neph tube. Clinical status stable. Will treat pain with oxycodone 10mg q6h, her current home regimen. Admission labs wnl. Cr wnl 0.86. BPs elevated which patient reports she thinks is due to pain she had in ED. Will monitor while inpatient. Discussed with Dr. Martin. Addendum by TIMO MENCHACA DO on July 09, 2023 07:00:34 EDT Patient seen this AM. Notes her pain is a currently a 8/10. She just vomited up her oxycodone. Will repeat dose after nausea medications. Discussed pain control goal, and IV abx. NPO for nephrostomy tube exchange - per patient was due to be changed a while ago as this one was placed in April. Blood cultures and urine cultures pending. Will discuss patient further with Dr. Hilliard this AM. Addendum by JODI HILLIARD MD on July 09, 2023 11:29:32 EDT Patient down for nephrostomy tube exchange, reviewed the care plan with residents Addendum by TIMO MENCHACA DO on July 09, 2023 16:58:48 EDT Patient seen and examined this afternoon with Dr. Mon. S/p Nephrostomy tube exchange Needs to return in 2 to 3 weeks with general anesthesia for repeat nephroureteral stent check and change. Per patient this was quite invasive. Notes she plans to keep this appt and follow up more regularly. Continue pain control, able to tolerate popsicle after procedure. Urine cultures pending. Continue IV meropenem. 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 05/15/23 * Urinalysis 02/14/23 Radiology* IR Neph Cath-Neph Ureter W/Guide Left 08/02/22 * IR Neph Cath-Neph Ureter W/Guide Left 09/02/22 * IR Neph Cath-Neph Ureter W/Guide Left 10/02/22 * IR Neph Cath-Neph Ureter W/Guide Left 11/02/22 * IR Neph Cath-Neph Ureter W/Guide Left 12/03/22 * IR Neph Cath-Neph Ureter W/Guide Left 12/31/22 * IR Neph Cath-Neph Ureter W/Guide Left 01/31/23 * IR Neph Cath-Neph Ureter W/Guide Left 03/02/23 * IR Neph Cath-Neph Ureter W/Guide Left 04/02/23 * IR Neph Cath-Neph Ureter W/Guide Left 05/02/23 * IR Neph Cath-Neph Ureter W/Guide Left 06/02/23 * IR Neph Cath-Neph Ureter W/Guide Left 06/30/23 * IR Neph Cath-Neph Ureter W/Guide Left 07/24/23 * BD Bone Density DEXA Axial Skeleton 05/15/23 [facility] 09-06-2023 Procedure note INTERVENTIONAL RADIOLOGY POST PROCEDURE NOTE Pre-Procedure Diagnosis: Routine nephroureteral stent check and change Post Procedure Diagnosis: Same. Pathology Supervisor: Dr. Johanna Jean Baptiste MD Procedure: 1. Retrieval of foreign body. 2. Antegrade nephrostogram. 3. Angioplasty of the left ureter. 4. Nephrostomy tube check and change with upsizing Anesthesia: Conscious sedation Findings: The 8 Andorran nephroureteral stent had occluded distally with a Glidewire unable to penetrate into the bladder. Mukund wire placed with balloon angioplasty of the distal ureter performed to a4 mm balloon. Successful 8 Andorran nephroureteral stent check and change into 10 Andorran nephroureteral stent placement. 014 wire had broken off in the bladder with successful snare and foreign body retrieval. Plan: The patient will return in 2 to 3 weeks with general anesthesia for repeat nephroureteral stent check and change. Estimated Blood Loss: Minimal (Less Than 10 mL). _ Specimen: None. Complications: None. Full report with procedural details to follow and will become available under the Radiology tab of Results Review. Please contact for any questions or concerns. _ Digitally Signed by JOHANNA JEAN BAPTISTE MD on 07/09/2023 01:56 PM [facility] [id number] History and physical note Date of Service 07/09/2023 Chief Complaint Dysuria, vomiting, flank pain History of Present Illness Patient is a 32-year-old G0 with a history of 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 She has a left nephrostomy tube in place. She has chronic pyelonephritis. She has cancer related pain. Patient has a known recurrent history of complicated urinary tract infection. These include with bacteria such as ESBL/E. coli/Enterococcus/Klebsiella pneumonia. She has had multiple admissions in the past for the same problem. She was most recently admitted to [facility] on 04/27 to05/07/23. She was subsequently discharged on daptomycin and ciprofloxacin to continue until 05/16. She was also seen at [facility] on 07/07. At that time, she had recently finished a course of ciprofloxacin and her repeat urinalysis was consistent with UTI. CT abdomen/pelvis was performed which showed Left-sided nephrostomy is present extending to the bladder. There is an irregularly shaped hypodensefocus in the upper pole of the kidney without enhancement. Mucosal thickening versus underfilling of the colon. Patient was placed on Bactrim DS twice daily x10 days for outpatient management per . She presented to [facility] again 07/08/23 with complaints of dysuria, flank pain, vomiting with suspected UTI/kidney infection per patient. A urinalysis and urine culture were obtained there, however records are not with the patient upon evaluation. She was transferred from [facility] emergency department to [place] emergency department with plan for direct admission to [facility]. She is currently awaiting bed placement at the time of evaluation. Today she notes for the past 3 days she has had vomiting with associated flank pain bilaterally. She notes that it is more severe on the left where her nephrostomy tube is in place. She also notes vaginal pain, namely dysuria for 1 to 2 hours after urinating. She notes some diarrhea x2 days as well as some intermittent chills. She denies fevers, chest pain, difficulty breathing, constipation, new vaginal or vulvar lesions. 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 Menarche age 14. Amenorrheic since initiation of Chemoradiation. Denies mammogram ever. Colonoscopy in 2020. Denies history of STDs. Not sexually active. Family History Mother with breast cancer Sister with cervical cancer Grandmother with cervical cancer Aunts with cervical cancer Cousins with cervical cancer ONCOLOGY HISTORY: - 04/04/2020: CT scan abdomen and pelvis. [facility]. Thickened cervical wall with involvementof the lower uterine segment, highly concerning for malignancy. There is involvement of the left ureter resulting in left hydronephrosis and hydroureter. Mildly enlarged right external iliac lymph node measuring 1.4 x 1.1 x 1.2 cm. - 04/13/2020: CT thorax. No evidence of active malignancy in the thorax. - 04/13/2020: IR nephrostomy tube insertion on the left. - 04/13/2020: MRI of the pelvis with contrast. Large uterine mass with extension to the pelvic fat and possible involvement of the mesorectal fascia. There is a prominent but not pathologically enlarged left pelvic lymph node which could be metastatic. Large cervical mass measuring 4.7 x 5.8 cm. - : Examination under Anesthesia, Cystourethroscopy, Cervical biopsies, Proctoscopy - 04/26/2020 Week #1 Cisplatin 40mg/m2 - 05/03/2020 Week #2 Cisplatin 20mg/m2 - 05/10/2020 Week #3 Cisplatin 20mg/m2 - 05/17/2020 Week #4 Cisplatin 20mg/m2 - 05/24/2020 Week #5 Cisplatin 20mg/m2 - 05/31/2020 Week #6 Cisplatin 20mg/m2 - 08/18/2020: CT urogram. Left percutaneous nephrostomy tube in place. Minimal left upper pole striated nephrogram. This finding is nonspecific and may be seen with inflammation or obstruction. Sincethere is no significant adjacent infiltrative changes within the perinephric fat, this could potentially be indicative of minimal left side obstruction. Improvement of the cervix lesion since the prior exam, diminished in size since prior study. - 12/07/2020 PET/CT no abnormal uptake at the uterine cervix, FDG avid lymphadenopathy or metastatic disease is seen. - 2020 CT abdomen and pelvis decreased left nephrogram with ectasia of the left upper tract and enhancement of the uroepithelium lining is worrisome for obstruction and/or infection following interval ureteral stent removal. - 01/09/2021 MRI of the pelvis treated disease with no significant residual tumor identified on this exam. Mild infiltrative change within the deep pelvic fat is presumably the result of radiation therapy, and attention to follow-up is recommended. Re-demonstration of mildly dilated left ureter and collecting system, compatible of history of pyelonephritis. RADIATION SUMMARY: Dates of treatment: 04/26/2020 - 06/07/2020 Treatment details : Initially the pelvis was treated to a dose of 4500 cGy in 25 fractions using intensity modulated radiation therapy with 6 MV photons. Following this dose the parametrium was boosted an additional 540 cGy in 3 fractions through AP PA quintero with midline block taken her final pelvic tumor dose to 5040 centigray. She was treated with concurrent cisplatin based chemotherapy. The patient then underwent for intracavitary brachii therapy applications with [id number] iridium 192afterloading device utilizing a tandem and ring. 2400 cGy was delivered at 600 cGy per fraction to point A from June 14, 2020 through July 11, 2020. The plan was to deliver 5 brachytherapy applications, however, the patient failed to show for surgery 3 times. Therefore, the decision to foregothe last treatment was made as it had been nearly 3 months since initiating therapy. Course: C1 Pelvis Treatment Site Ref. ID Energy Dose/Fx (cGy) #Fx Total Dose (cGy) Start Date End Date Elapsed Days IMRT [facility] Pelvis 6X 180 4,500 04/26/2020 06/02/2020 37 3D PM Bst 18X 180 540 06/05/2020 06/07/2020 2 GENETIC TESTING: - [facility] No reportable somatic or germline pathogenic or actionable mutations were found. Tumor mutational burden was 39th percentile. Microsatellite instability status stable. Somatic variants of unknown significance were found in PRKDC, TRAF3, AGUSTIN, ERBB4, and CXCR4. Variants of unknown significance and germline mutations were found in BRCA2 and RAD51C.DNA mismatch repair protein expression was normal. PD-L1 expression was positive. Review of Systems See HPI for pertinent positives. A full review of systems was conducted and found otherwise to be negative. Physical Exam Vitals and Measurements T: 36.4 C (Oral) TMIN: 36 C (Oral) TMAX: 36.4 C (Oral) HR: 71 RR: 18 BP: 163/113 SpO2: 97% WT: 62.8kg Weight Dosing Weight: 62.8 kg (07/08/23) General: A&O x3 HEENT: normocephalic, atraumatic Cardio: RRR, no murmurs, no rubs, gallops Lungs: Breathing w/out difficulty, no use of accessory muscles, clear to auscultation bilaterally GI: Soft, mild tenderness left lower quadrant, otherwise nontender, active bowel sounds, nephrostomy tube in place on left side, no erythema, or drainage at insertion site. Urostomy bag with approximately 50 cc of clear urine. No significant flank tenderness on the right side. Mild tenderness to the left side. Extremities: non-edematous, neg Homans sign Neuro: Normal sensation Psychiatric: Normal affect, normal demeanor. Well groomed. Non-pressured speech. Skin: warm, no rashes, Port-A-Cath in place at right chest Lab Results CBC, CMP, urinalysis, urine culture, nephrostomy culture Imaging Results and Diagnostics Pap smear 05/22/2023 Atypical from cells of undetermined significance (ASCUS). HPV high-risk negative. CT abdomen/pelvis 07/07/2023 Findings: Liver: Fatty change of the liver are present. There is no evidence of focal abnormality. Biliary: Normal. No visible dilatation or calcification. Pancreas: Normal. No lesion, fluid collection, ductal dilatation, or atrophy Spleen: Normal. No enlargement or focal lesion. Kidneys: Right kidney is unremarkable. There is a left-sided nephrostomy tube extending to the bladder. There is an irregular shaped hypointense focus in the upper pole of the left kidney. Adrenals: Normal. No mass or enlargement. Aorta/vascular: Normal. No aneurysm or dissection. Retroperitoneum: Normal. No mass or adenopathy. Bowel/mesentery: There is underfilling versus mucosal thickening of the colon. There is no evidenceof obstructing lesion. Abdominal wall: Normal. No mass or hernia. Urinary bladder: Normal. No visible focal wall thickening, lesion, or calculus. Pelvic nodes: Normal. No adenopathy. Pelvic organs uterus is absent. Bones: Normal. No bony lesion or fracture. Lung bases: Normal. No visible pulmonary or pleural disease. Other: Negative. Conclusion: 1. Left-sided nephrostomy is present extending the bladder. There is an irregularly shaped hypointense focus of the portal kidney without enhancement. 2. Mucosal thickening versus underfilling of the colon. Assessment/Plan 1. 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 Discussed with IR, it is the uterus with post-radiation changes. Therefore, no biopsy recommended. - 04/27 CT A/P in ER showed similar mass as prior scan. Left collecting system and proximal ureteralwall thickening concerning for pyelitis/ascending UTI. New concern for sacral insufficiency fractures. - 05/22/2023 Pap smear showed Atypical from cells of undetermined significance (ASCUS). HPV high-risk negative. Plan for follow-up in 1 year for repeat Pap smear. - 07/07/23 CT A/P showed Left-sided nephrostomy is present extending the bladder. There is an irregularly shaped hypointense focus of the portal kidney without enhancement. Mucosal thickening versus underfilling of the colon. Otherwise normal. 2. Complicated UTI (urinary tract infection) - 02/23 urine culture showed ESBL, patient completed 4 weeks of ertapenem at that time - 04/27 UA positive for nitrites and large esterase. Nephrostomy urine culture positive for Klebsiella, Myroides, Enterococcus, Vagococcus. Patient underwent inpatient antibiotics. - CT A/P 04/27: Subcentimeter cysts suspected in the left. Left collecting system and proximal ureteral wall thickening concerning for pyelitis/ascending UTI. no comment on right kidney kidney. There is mild wall thickening and enhancement of the left renal pelvis and proximal ureter. -05/07/23 Subsequently discharged on daptomycin and ciprofloxacin until 05/16 -07/07/23 Patient presented to [facility] for UTI symptoms. - Urinalysis on 07/07 was remarkable for signs of UTI at [facility]. Patient was placed on BactrimDS twice daily x10 days for outpatient management after discussion with Dr. Hilliard. - 07/07/23 CT abdomen/pelvis obtained at that time showed Left-sided nephrostomy is present extendingto the bladder. There is an irregularly shaped hypodense focus in the upper pole of the kidney without enhancement. Mucosal thickening versus underfilling of the colon. -07/08 Patient again presents to [facility] with transfer to [facility] for direct admission. -Patient notes dysuria, flank pain, vomiting - Afebrile, VSS -Repeat UA/culture, culture of nephrostomy tube pending -We will continue outpatient Bactrim regimen pending culture results 3. Cancer related pain -Previous pain regimen MS Contin 45 mg BID. Oxycodone 5 mg & 10 mg q4hrs PRN breakthrough, Gabapentin 300mg qHS. PRN IV 0.5mg Dilaudid. -An anonymous tip was left on 06/[address] Martin's office indicating a concern that patient was selling her pain meds -Patient seen via telehealth visit on 06/22/2023. MS Contin was discontinued at that time. She was started on oxycodone 10 mg every 6 hours as needed for pain with plan for follow-up in 1 month. -Pain regimen while inpatient Oxycodone 10mg q6 hrs. Gabapentin 300mg qHS. IV Dilaudid breakthrough. 4. Nephrostomy status - Nephrostomy tube was exchanged on 04/29/2023 -Patient was scheduled with interventional radiology for nephroureteral tube change on 06/24/2023. Patient did not show for appointment. -Patient does not currently follow with a urologist. She was supposed to see Dr. Andrea at [facility]. Referral was sent to this provider to be scheduled end of May/early June. Patient did not dothis. -Discussion with Dr. Martin via telehealth visit, patient was encouraged again to follow-up with [facility] urology for possible nephrectomy in order to discontinue nephrostomy bag and prevent recurrent infections. This in order to ultimately discontinue pain medications for this problem. 5. Hypertension -new onset hypertension in ED evaluation. -Asymptomatic -BPs 160s/90s 110s -Admission laboratory work pending 6. Asthma -asymptomatic 7. Tobacco use -patient notes she has quit 8. Anxiety Continue home med Ativan 1 mg every 8 as needed for anxiety Mood stable 9. Sacral fracture - 04/27 CT with findings concerning for New serpiginous areas of sclerosis of both sacral ala, concerning for sacral insufficiency fractures - Patient has not undergone planned DEXA scan outpatient since last admission Patient is a 32-year-old with Stabe IIIB SCC of the cervix with recurrent urinary tract infections in the setting of left nephrostomy tube in place. Activity: Up ad marisa Diet: regular IVF: NS20 UOP: 50cc in nephrostomy bag Pain control: Oral oxycodone 10 mg every 6, IV Dilaudid breakthrough VTE prophylaxis: SCDs Code: Full Disposition: Pain management. Urinalysis, urine culture, culture of nephrostomy pending. Continue outpatient regimen of Bactrim pending culture results. Possible nephrostomy tube exchange. Ensure urology follow-up after discharge for definitive surgical management. Patient seen and examined with senior resident Dr. Jones Problem List/Past Medical History Ongoing Acute kidney injury Anxiety Asthma Bilateral flank pain Cancer related pain Cervical cancer Complicated UTI (urinary tract infection) Decreased appetite Dehydration DVT prophylaxis History of chemotherapy History of radiation therapy Left flank pain Moderate protein-calorie malnutrition Nausea and vomiting Nephrostomy status Obstructive uropathy Port-A-Cath in place Premature menopause Pyelonephritis Procedure/Surgical History Nephrostomy with tube drainage: 01/10/21 JJ stent: 11/15/20 Radiation: 06/2020 Cervical biopsy: 2019 Tumor cells, benign: 2001 Nephrostomy with tube drainage Medications Home Medications (8) Active Calcium Plus Vitamin D3 600 mg-12.5 mcg (500 intl units) oral capsule 2 cap(s), Oral, qDay gabapentin 300 mg oral capsule 1 cap(s), Oral, qHS LORazepam 1 mg oral tablet 1 mg = 1 tab(s), Oral, q8h LORazepam 1 mg oral tablet 1 mg = 1 tab(s), PRN, Oral, q8h mirtazapine 15 mg oral tablet 15 mg = 1 tab(s), Oral, qDay ondansetron 4 mg oral tablet 4 mg = 1 tab(s), PRN, Oral, q6h ondansetron 4 mg oral tablet 4 mg = 1 tab(s), PRN, Oral, q6h oxyCODONE 10 mg oral tablet ( IMMEDIATE release ) 10 mg = 1 tab(s), PRN, Oral, q6h Allergies Oranges penicillin Social History Alcohol - Denies Alcohol Use, 06/13/2020 Use: Current. Type: Beer. Frequency: 1-2 times per week., 12/21/2021 Home/Environment - No Risk, 06/13/2020 Domestic Concerns: None. Living situation: Home/Independent. Safe place to go: Yes. Lives In: Mobile home, 1st floor bedroom, 1st floor bathroom. Current Home Treatments None. Professional Skilled Services or Special Community Resources None. Financial concerns: No. Marital Status: Unmarried., 06/13/2020 Nutrition/Health - No Risk, 06/13/2020 Type of diet: Regular. Appetite Fair. Eating Difficulties None. Caffeine intake amount: 1 can pop per day., 06/13/2020 Sexual Sexually active: Yes. First active at age: 18 Years. Current partners: 1. Number of lifetime partners: 7. Self described orientation: Straight or heterosexual. Other contraceptive use: condoms. History of sexual abuse: No. Gender Identity: Identifies as female., 04/12/2020 Substance Abuse - Denies Substance Abuse, 06/13/2020 Use: Never., 04/12/2020 Tobacco Nicotine Use: 5-9 cigarettes (between 1/4 to 1/2 pack)/day in last 30 days. Type: Cigarettes. Tobacco use per day: 10. Number of years: 10. Started at age: 19 Years. Previous treatment: None. Ready to change: Yes., 04/12/2020 Immunizations hepatitis B pediatric vaccine: 0 unknown unit (06/16/01) hepatitis B pediatric vaccine: 0 unknown unit (06/21/98) measles/mumps/rubella virus vaccine: 0 unknown unit (06/16/01) Code Status Code Status - Ordered -- 07/08/23 22:24:00 EDT, Full Code, Constant Order Digitally Signed by ANGELA ALVARADO DO on 07/09/2023 04:30 AM [id number] History and physical note Date of Service 07/09/2023 Chief Complaint Dysuria, vomiting, flank pain History of Present Illness Patient is a 32-year-old G0 with a history of 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 She has a left nephrostomy tube in place. She has chronic pyelonephritis. She has cancer related pain. Patient has a known recurrent history of complicated urinary tract infection. These include with bacteria such as ESBL/E. coli/Enterococcus/Klebsiella pneumonia. She has had multiple admissions in the past for the same problem. She was most recently admitted to [facility] on 04/27 to05/07/23. She was subsequently discharged on daptomycin and ciprofloxacin to continue until 05/16. She was also seen at [facility] on 07/07. At that time, she had recently finished a course of ciprofloxacin and her repeat urinalysis was consistent with UTI. CT abdomen/pelvis was performed which showed Left-sided nephrostomy is present extending to the bladder. There is an irregularly shaped hypodensefocus in the upper pole of the kidney without enhancement. Mucosal thickening versus underfilling of the colon. Patient was placed on Bactrim DS twice daily x10 days for outpatient management per . She presented to [facility] again 07/08/23 with complaints of dysuria, flank pain, vomiting with suspected UTI/kidney infection per patient. A urinalysis and urine culture were obtained there, however records are not with the patient upon evaluation. She was transferred from [facility] emergency department to [place] emergency department with plan for direct admission to [facility]. She is currently awaiting bed placement at the time of evaluation. Today she notes for the past 3 days she has had vomiting with associated flank pain bilaterally. She notes that it is more severe on the left where her nephrostomy tube is in place. She also notes vaginal pain, namely dysuria for 1 to 2 hours after urinating. She notes some diarrhea x2 days as well as some intermittent chills. She denies fevers, chest pain, difficulty breathing, constipation, new vaginal or vulvar lesions. 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 Menarche age 14. Amenorrheic since initiation of Chemoradiation. Denies mammogram ever. Colonoscopy in 2019. Denies history of STDs. Not sexually active. Family History Mother with breast cancer Sister with cervical cancer Grandmother with cervical cancer Aunts with cervical cancer Cousins with cervical cancer ONCOLOGY HISTORY: - 04/04/2020: CT scan abdomen and pelvis. [facility]. Thickened cervical wall with involvementof the lower uterine segment, highly concerning for malignancy. There is involvement of the left ureter resulting in left hydronephrosis and hydroureter. Mildly enlarged right external iliac lymph node measuring 1.4 x 1.1 x 1.2 cm. - 04/13/2020: CT thorax. No evidence of active malignancy in the thorax. - 04/13/2020: IR nephrostomy tube insertion on the left. - 04/13/2020: MRI of the pelvis with contrast. Large uterine mass with extension to the pelvic fat and possible involvement of the mesorectal fascia. There is a prominent but not pathologically enlarged left pelvic lymph node which could be metastatic. Large cervical mass measuring 4.7 x 5.8 cm. - : Examination under Anesthesia, Cystourethroscopy, Cervical biopsies, Proctoscopy - 04/26/2020 Week #1 Cisplatin 40mg/m2 - 05/03/2020 Week #2 Cisplatin 20mg/m2 - 05/10/2020 Week #3 Cisplatin 20mg/m2 - 05/17/2020 Week #4 Cisplatin 20mg/m2 - 05/24/2020 Week #5 Cisplatin 20mg/m2 - 05/31/2020 Week #6 Cisplatin 20mg/m2 - 08/18/2020: CT urogram. Left percutaneous nephrostomy tube in place. Minimal left upper pole striated nephrogram. This finding is nonspecific and may be seen with inflammation or obstruction. Sincethere is no significant adjacent infiltrative changes within the perinephric fat, this could potentially be indicative of minimal left side obstruction. Improvement of the cervix lesion since the prior exam, diminished in size since prior study. - 12/07/2020 PET/CT no abnormal uptake at the uterine cervix, FDG avid lymphadenopathy or metastatic disease is seen. - 2020 CT abdomen and pelvis decreased left nephrogram with ectasia of the left upper tract and enhancement of the uroepithelium lining is worrisome for obstruction and/or infection following interval ureteral stent removal. - 01/09/2021 MRI of the pelvis treated disease with no significant residual tumor identified on this exam. Mild infiltrative change within the deep pelvic fat is presumably the result of radiation therapy, and attention to follow-up is recommended. Re-demonstration of mildly dilated left ureter and collecting system, compatible of history of pyelonephritis. RADIATION SUMMARY: Dates of treatment: 04/26/2020 - 06/07/2020 Treatment details : Initially the pelvis was treated to a dose of 4500 cGy in 25 fractions using intensity modulated radiation therapy with 6 MV photons. Following this dose the parametrium was boosted an additional 540 cGy in 3 fractions through AP PA quintero with midline block taken her final pelvic tumor dose to 5040 centigray. She was treated with concurrent cisplatin based chemotherapy. The patient then underwent for intracavitary brachii therapy applications with [id number] iridium 192afterloading device utilizing a tandem and ring. 2400 cGy was delivered at 600 cGy per fraction to point A from June 14, 2020 through July 11, 2020. The plan was to deliver 5 brachytherapy applications, however, the patient failed to show for surgery 3 times. Therefore, the decision to foregothe last treatment was made as it had been nearly 3 months since initiating therapy. Course: C1 Pelvis Treatment Site Ref. ID Energy Dose/Fx (cGy) #Fx Total Dose (cGy) Start Date End Date Elapsed Days IMRT SEAM RUBBER Pelvis 6X 180 4,500 04/26/2020 06/02/2020 37 3D PM Bst 18X 180 540 06/05/2020 06/07/2020 2 GENETIC TESTING: - Patient had genetic testing sent through [facility]. No reportable somatic or germline pathogenic or actionable mutations were found. Tumor mutational burden was 39th percentile. Microsatellite instability status stable. Somatic variants of unknown significance were found in PRKDC, TRAF3, AGUSTIN, ERBB4, and CXCR4. Variants of unknown significance and germline mutations were found in BRCA2 and RAD51C.DNA mismatch repair protein expression was normal. PD-L1 expression was positive. Review of Systems See HPI for pertinent positives. A full review of systems was conducted and found otherwise to be negative. Physical Exam Vitals and Measurements T: 36.4 C (Oral) TMIN: 36 C (Oral) TMAX: 36.4 C (Oral) HR: 71 RR: 18 BP: 163/113 SpO2: 97% WT: 62.8kg Weight Dosing Weight: 62.8 kg (07/08/23) General: A&O x3 HEENT: normocephalic, atraumatic Cardio: RRR, no murmurs, no rubs, gallops Lungs: Breathing w/out difficulty, no use of accessory muscles, clear to auscultation bilaterally GI: Soft, mild tenderness left lower quadrant, otherwise nontender, active bowel sounds, nephrostomy tube in place on left side, no erythema, or drainage at insertion site. Urostomy bag with approximately 50 cc of clear urine. No significant flank tenderness on the right side. Mild tenderness to the left side. Extremities: non-edematous, neg Homans sign Neuro: Normal sensation Psychiatric: Normal affect, normal demeanor. Well groomed. Non-pressured speech. Skin: warm, no rashes, Port-A-Cath in place at right chest Lab Results CBC, CMP, urinalysis, urine culture, nephrostomy culture Imaging Results and Diagnostics Pap smear 05/22/2023 Atypical from cells of undetermined significance (ASCUS). HPV high-risk negative. CT abdomen/pelvis 07/07/2023 Findings: Liver: Fatty change of the liver are present. There is no evidence of focal abnormality. Biliary: Normal. No visible dilatation or calcification. Pancreas: Normal. No lesion, fluid collection, ductal dilatation, or atrophy Spleen: Normal. No enlargement or focal lesion. Kidneys: Right kidney is unremarkable. There is a left-sided nephrostomy tube extending to the bladder. There is an irregular shaped hypointense focus in the upper pole of the left kidney. Adrenals: Normal. No mass or enlargement. Aorta/vascular: Normal. No aneurysm or dissection. Retroperitoneum: Normal. No mass or adenopathy. Bowel/mesentery: There is underfilling versus mucosal thickening of the colon. There is no evidenceof obstructing lesion. Abdominal wall: Normal. No mass or hernia. Urinary bladder: Normal. No visible focal wall thickening, lesion, or calculus. Pelvic nodes: Normal. No adenopathy. Pelvic organs uterus is absent. Bones: Normal. No bony lesion or fracture. Lung bases: Normal. No visible pulmonary or pleural disease. Other: Negative. Conclusion: 1. Left-sided nephrostomy is present extending the bladder. There is an irregularly shaped hypointense focus of the portal kidney without enhancement. 2. Mucosal thickening versus underfilling of the colon. Assessment/Plan 1. 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 Discussed with IR, it is the uterus with post-radiation changes. Therefore, no biopsy recommended. - 04/27 CT A/P in ER showed similar mass as prior scan. Left collecting system and proximal ureteralwall thickening concerning for pyelitis/ascending UTI. New concern for sacral insufficiency fractures. - 05/22/2023 Pap smear showed Atypical from cells of undetermined significance (ASCUS). HPV high-risk negative. Plan for follow-up in 1 year for repeat Pap smear. - 07/07/23 CT A/P showed Left-sided nephrostomy is present extending the bladder. There is an irregularly shaped hypointense focus of the portal kidney without enhancement. Mucosal thickening versus underfilling of the colon. Otherwise normal. 2. Complicated UTI (urinary tract infection) - 02/23 urine culture showed ESBL, patient completed 4 weeks of ertapenem at that time - 04/27 UA positive for nitrites and large esterase. Nephrostomy urine culture positive for Klebsiella, Myroides, Enterococcus, Vagococcus. Patient underwent inpatient antibiotics. - CT A/P 04/27: Subcentimeter cysts suspected in the left. Left collecting system and proximal ureteral wall thickening concerning for pyelitis/ascending UTI. no comment on right kidney kidney. There is mild wall thickening and enhancement of the left renal pelvis and proximal ureter. -05/07/23 Subsequently discharged on daptomycin and ciprofloxacin until 05/16 -07/07/23 Patient presented to [facility] for UTI symptoms. - Urinalysis on 07/07 was remarkable for signs of UTI at [facility]. Patient was placed on BactrimDS twice daily x10 days for outpatient management after discussion with Dr. Hilliard. - 07/07/23 CT abdomen/pelvis obtained at that time showed Left-sided nephrostomy is present extendingto the bladder. There is an irregularly shaped hypodense focus in the upper pole of the kidney without enhancement. Mucosal thickening versus underfilling of the colon. -07/08 Patient again presents to [facility] with transfer to [facility] for direct admission. -Patient notes dysuria, flank pain, vomiting - Afebrile, VSS -Repeat UA/culture, culture of nephrostomy tube pending -We will continue outpatient Bactrim regimen pending culture results 3. Cancer related pain -Previous pain regimen MS Contin 45 mg BID. Oxycodone 5 mg & 10 mg q4hrs PRN breakthrough, Gabapentin 300mg qHS. PRN IV 0.5mg Dilaudid. -An anonymous tip was left on 06/[address] Martin's office indicating a concern that patient was selling her pain meds -Patient seen via telehealth visit on 06/22/2023. MS Contin was discontinued at that time. She was started on oxycodone 10 mg every 6 hours as needed for pain with plan for follow-up in 1 month. -Pain regimen while inpatient Oxycodone 10mg q6 hrs. Gabapentin 300mg qHS. IV Dilaudid breakthrough. 4. Nephrostomy status - Nephrostomy tube was exchanged on 04/29/2023 -Patient was scheduled with interventional radiology for nephroureteral tube change on 06/24/2023. Patient did not show for appointment. -Patient does not currently follow with a urologist. She was supposed to see Dr. Andrea at [facility]. Referral was sent to this provider to be scheduled end of May/early June. Patient did not dothis. -Discussion with Dr. Martin via telehealth visit, patient was encouraged again to follow-up with [facility] urology for possible nephrectomy in order to discontinue nephrostomy bag and prevent recurrent infections. This in order to ultimately discontinue pain medications for this problem. 5. Hypertension -new onset hypertension in ED evaluation. -Asymptomatic -BPs 160s/90s 110s -Admission laboratory work pending 6. Asthma -asymptomatic 7. Tobacco use -patient notes she has quit 8. Anxiety Continue home med Ativan 1 mg every 8 as needed for anxiety Mood stable 9. Sacral fracture - 04/27 CT with findings concerning for New serpiginous areas of sclerosis of both sacral ala, concerning for sacral insufficiency fractures - Patient has not undergone planned DEXA scan outpatient since last admission Patient is a 32-year-old with Stabe IIIB SCC of the cervix with recurrent urinary tract infections in the setting of left nephrostomy tube in place. Activity: Up ad marisa Diet: regular IVF: NS20 UOP: 50cc in nephrostomy bag Pain control: Oral oxycodone 10 mg every 6, IV Dilaudid breakthrough VTE prophylaxis: SCDs Code: Full Disposition: Pain management. Urinalysis, urine culture, culture of nephrostomy pending. Continue outpatient regimen of Bactrim pending culture results. Possible nephrostomy tube exchange. Ensure urology follow-up after discharge for definitive surgical management. Patient seen and examined with senior resident Dr. Jones Problem List/Past Medical History Ongoing Acute kidney injury Anxiety Asthma Bilateral flank pain Cancer related pain Cervical cancer Complicated UTI (urinary tract infection) Decreased appetite Dehydration DVT prophylaxis History of chemotherapy History of radiation therapy Left flank pain Moderate protein-calorie malnutrition Nausea and vomiting Nephrostomy status Obstructive uropathy Port-A-Cath in place Premature menopause Pyelonephritis Procedure/Surgical History Nephrostomy with tube drainage: 01/10/21 JJ stent: 11/15/20 Radiation: 06/2020 Cervical biopsy: 2019 Tumor cells, benign: 2001 Nephrostomy with tube drainage Medications Home Medications (8) Active Calcium Plus Vitamin D3 600 mg-12.5 mcg (500 intl units) oral capsule 2 cap(s), Oral, qDay gabapentin 300 mg oral capsule 1 cap(s), Oral, qHS LORazepam 1 mg oral tablet 1 mg = 1 tab(s), Oral, q8h LORazepam 1 mg oral tablet 1 mg = 1 tab(s), PRN, Oral, q8h mirtazapine 15 mg oral tablet 15 mg = 1 tab(s), Oral, qDay ondansetron 4 mg oral tablet 4 mg = 1 tab(s), PRN, Oral, q6h ondansetron 4 mg oral tablet 4 mg = 1 tab(s), PRN, Oral, q6h oxyCODONE 10 mg oral tablet ( IMMEDIATE release ) 10 mg = 1 tab(s), PRN, Oral, q6h Allergies Oranges penicillin Social History Alcohol - Denies Alcohol Use, 06/13/2020 Use: Current. Type: Beer. Frequency: 1-2 times per week., 12/21/2021 Home/Environment - No Risk, 06/13/2020 Domestic Concerns: None. Living situation: Home/Independent. Safe place to go: Yes. Lives In: Mobile home, 1st floor bedroom, 1st floor bathroom. Current Home Treatments None. Professional Skilled Services or Special Community Resources None. Financial concerns: No. Marital Status: Unmarried., 06/13/2020 Nutrition/Health - No Risk, 06/13/2020 Type of diet: Regular. Appetite Fair. Eating Difficulties None. Caffeine intake amount: 1 can pop per day., 06/13/2020 Sexual Sexually active: Yes. First active at age: 18 Years. Current partners: 1. Number of lifetime partners: 7. Self described orientation: Straight or heterosexual. Other contraceptive use: condoms. History of sexual abuse: No. Gender Identity: Identifies as female., 04/12/2020 Substance Abuse - Denies Substance Abuse, 06/13/2020 Use: Never., 04/12/2020 Tobacco Nicotine Use: 5-9 cigarettes (between 1/4 to 1/2 pack)/day in last 30 days. Type: Cigarettes. Tobacco use per day: 10. Number of years: 10. Started at age: 19 Years. Previous treatment: None. Ready to change: Yes., 04/12/2020 Immunizations hepatitis B pediatric vaccine: 0 unknown unit (06/16/01) hepatitis B pediatric vaccine: 0 unknown unit (06/21/98) measles/mumps/rubella virus vaccine: 0 unknown unit (06/16/01) Code Status Code Status - Ordered -- 07/08/23 22:24:00 EDT, Full Code, Constant Order Digitally Signed by ANGELA ALVARADO DO on 07/09/2023 04:30 AM [id number] History and physical note Date of Service 07/09/2023 Chief Complaint Dysuria, vomiting, flank pain History of Present Illness Patient is a 32-year-old G0 with a history of 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 She has a left nephrostomy tube in place. She has chronic pyelonephritis. She has cancer related pain. Patient has a known recurrent history of complicated urinary tract infection. These include with bacteria such as ESBL/E. coli/Enterococcus/Klebsiella pneumonia. She has had multiple admissions in the past for the same problem. She was most recently admitted to [facility] on 04/27 to05/07/23. She was subsequently discharged on daptomycin and ciprofloxacin to continue until 05/16. She was also seen at [facility] on 07/07. At that time, she had recently finished a course of ciprofloxacin and her repeat urinalysis was consistent with UTI. CT abdomen/pelvis was performed which showed Left-sided nephrostomy is present extending to the bladder. There is an irregularly shaped hypodensefocus in the upper pole of the kidney without enhancement. Mucosal thickening versus underfilling of the colon. Patient was placed on Bactrim DS twice daily x10 days for outpatient management per . She presented to [facility] again 07/08/23 with complaints of dysuria, flank pain, vomiting with suspected UTI/kidney infection per patient. A urinalysis and urine culture were obtained there, however records are not with the patient upon evaluation. She was transferred from [facility] emergency department to [place] emergency department with plan for direct admission to [facility]. She is currently awaiting bed placement at the time of evaluation. Today she notes for the past 3 days she has had vomiting with associated flank pain bilaterally. She notes that it is more severe on the left where her nephrostomy tube is in place. She also notes vaginal pain, namely dysuria for 1 to 2 hours after urinating. She notes some diarrhea x2 days as well as some intermittent chills. She denies fevers, chest pain, difficulty breathing, constipation, new vaginal or vulvar lesions. 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 Menarche age 14. Amenorrheic since initiation of Chemoradiation. Denies mammogram ever. Colonoscopy in 2019. Denies history of STDs. Not sexually active. Family History Mother with breast cancer Sister with cervical cancer Grandmother with cervical cancer Aunts with cervical cancer Cousins with cervical cancer ONCOLOGY HISTORY: - 04/04/2020: CT scan abdomen and pelvis. [facility]. Thickened cervical wall with involvementof the lower uterine segment, highly concerning for malignancy. There is involvement of the left ureter resulting in left hydronephrosis and hydroureter. Mildly enlarged right external iliac lymph node measuring 1.4 x 1.1 x 1.2 cm. - 04/13/2020: CT thorax. No evidence of active malignancy in the thorax. - 04/13/2020: IR nephrostomy tube insertion on the left. - 04/13/2020: MRI of the pelvis with contrast. Large uterine mass with extension to the pelvic fat and possible involvement of the mesorectal fascia. There is a prominent but not pathologically enlarged left pelvic lymph node which could be metastatic. Large cervical mass measuring 4.7 x 5.8 cm. - : Examination under Anesthesia, Cystourethroscopy, Cervical biopsies, Proctoscopy - 04/26/2020 Week #1 Cisplatin 40mg/m2 - 05/03/2020 Week #2 Cisplatin 20mg/m2 - 05/10/2020 Week #3 Cisplatin 20mg/m2 - 05/17/2020 Week #4 Cisplatin 20mg/m2 - 05/24/2020 Week #5 Cisplatin 20mg/m2 - 05/31/2020 Week #6 Cisplatin 20mg/m2 - 08/18/2020: CT urogram. Left percutaneous nephrostomy tube in place. Minimal left upper pole striated nephrogram. This finding is nonspecific and may be seen with inflammation or obstruction. Sincethere is no significant adjacent infiltrative changes within the perinephric fat, this could potentially be indicative of minimal left side obstruction. Improvement of the cervix lesion since the prior exam, diminished in size since prior study. - 12/07/2020 PET/CT no abnormal uptake at the uterine cervix, FDG avid lymphadenopathy or metastatic disease is seen. - 2020 CT abdomen and pelvis decreased left nephrogram with ectasia of the left upper tract and enhancement of the uroepithelium lining is worrisome for obstruction and/or infection following interval ureteral stent removal. - 01/09/2021 MRI of the pelvis treated disease with no significant residual tumor identified on this exam. Mild infiltrative change within the deep pelvic fat is presumably the result of radiation therapy, and attention to follow-up is recommended. Re-demonstration of mildly dilated left ureter and collecting system, compatible of history of pyelonephritis. RADIATION SUMMARY: Dates of treatment: 04/26/2020 - 06/07/2020 Treatment details : Initially the pelvis was treated to a dose of 4500 cGy in 25 fractions using intensity modulated radiation therapy with 6 MV photons. Following this dose the parametrium was boosted an additional 540 cGy in 3 fractions through AP PA quintero with midline block taken her final pelvic tumor dose to 5040 centigray. She was treated with concurrent cisplatin based chemotherapy. The patient then underwent for intracavitary brachii therapy applications with [id number] iridium 192afterloading device utilizing a tandem and ring. 2400 cGy was delivered at 600 cGy per fraction to point A from June 14, 2020 through July 11, 2020. The plan was to deliver 5 brachytherapy applications, however, the patient failed to show for surgery 3 times. Therefore, the decision to foregothe last treatment was made as it had been nearly 3 months since initiating therapy. Course: C1 Pelvis Treatment Site Ref. ID Energy Dose/Fx (cGy) #Fx Total Dose (cGy) Start Date End Date Elapsed Days IMRT SEAM RUBBER Pelvis 6X 180 4,500 04/26/2020 06/02/2020 37 3D PM Bst 18X 180 540 06/05/2020 06/07/2020 2 GENETIC TESTING: - Patient had genetic testing sent through [facility]. No reportable somatic or germline pathogenic or actionable mutations were found. Tumor mutational burden was 39th percentile. Microsatellite instability status stable. Somatic variants of unknown significance were found in PRKDC, TRAF3, AGUSTIN, ERBB4, and CXCR4. Variants of unknown significance and germline mutations were found in BRCA2 and RAD51C.DNA mismatch repair protein expression was normal. PD-L1 expression was positive. Review of Systems See HPI for pertinent positives. A full review of systems was conducted and found otherwise to be negative. Physical Exam Vitals and Measurements T: 36.4 C (Oral) TMIN: 36 C (Oral) TMAX: 36.4 C (Oral) HR: 71 RR: 18 BP: 163/113 SpO2: 97% WT: 62.8kg Weight Dosing Weight: 62.8 kg (07/08/23) General: A&O x3 HEENT: normocephalic, atraumatic Cardio: RRR, no murmurs, no rubs, gallops Lungs: Breathing w/out difficulty, no use of accessory muscles, clear to auscultation bilaterally GI: Soft, mild tenderness left lower quadrant, otherwise nontender, active bowel sounds, nephrostomy tube in place on left side, no erythema, or drainage at insertion site. Urostomy bag with approximately 50 cc of clear urine. No significant flank tenderness on the right side. Mild tenderness to the left side. Extremities: non-edematous, neg Homans sign Neuro: Normal sensation Psychiatric: Normal affect, normal demeanor. Well groomed. Non-pressured speech. Skin: warm, no rashes, Port-A-Cath in place at right chest Lab Results CBC, CMP, urinalysis, urine culture, nephrostomy culture Imaging Results and Diagnostics Pap smear 05/22/2023 Atypical from cells of undetermined significance (ASCUS). HPV high-risk negative. CT abdomen/pelvis 07/07/2023 Findings: Liver: Fatty change of the liver are present. There is no evidence of focal abnormality. Biliary: Normal. No visible dilatation or calcification. Pancreas: Normal. No lesion, fluid collection, ductal dilatation, or atrophy Spleen: Normal. No enlargement or focal lesion. Kidneys: Right kidney is unremarkable. There is a left-sided nephrostomy tube extending to the bladder. There is an irregular shaped hypointense focus in the upper pole of the left kidney. Adrenals: Normal. No mass or enlargement. Aorta/vascular: Normal. No aneurysm or dissection. Retroperitoneum: Normal. No mass or adenopathy. Bowel/mesentery: There is underfilling versus mucosal thickening of the colon. There is no evidenceof obstructing lesion. Abdominal wall: Normal. No mass or hernia. Urinary bladder: Normal. No visible focal wall thickening, lesion, or calculus. Pelvic nodes: Normal. No adenopathy. Pelvic organs uterus is absent. Bones: Normal. No bony lesion or fracture. Lung bases: Normal. No visible pulmonary or pleural disease. Other: Negative. Conclusion: 1. Left-sided nephrostomy is present extending the bladder. There is an irregularly shaped hypointense focus of the portal kidney without enhancement. 2. Mucosal thickening versus underfilling of the colon. Assessment/Plan 1. 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 Discussed with IR, it is the uterus with post-radiation changes. Therefore, no biopsy recommended. - 04/27 CT A/P in ER showed similar mass as prior scan. Left collecting system and proximal ureteralwall thickening concerning for pyelitis/ascending UTI. New concern for sacral insufficiency fractures. - 05/22/2023 Pap smear showed Atypical from cells of undetermined significance (ASCUS). HPV high-risk negative. Plan for follow-up in 1 year for repeat Pap smear. - 07/07/23 CT A/P showed Left-sided nephrostomy is present extending the bladder. There is an irregularly shaped hypointense focus of the portal kidney without enhancement. Mucosal thickening versus underfilling of the colon. Otherwise normal. 2. Complicated UTI (urinary tract infection) - 02/23 urine culture showed ESBL, patient completed 4 weeks of ertapenem at that time - 04/27 UA positive for nitrites and large esterase. Nephrostomy urine culture positive for Klebsiella, Myroides, Enterococcus, Vagococcus. Patient underwent inpatient antibiotics. - CT A/P 04/27: Subcentimeter cysts suspected in the left. Left collecting system and proximal ureteral wall thickening concerning for pyelitis/ascending UTI. no comment on right kidney kidney. There is mild wall thickening and enhancement of the left renal pelvis and proximal ureter. -05/07/23 Subsequently discharged on daptomycin and ciprofloxacin until 05/16 -07/07/23 Patient presented to [facility] for UTI symptoms. - Urinalysis on 07/07 was remarkable for signs of UTI at [facility]. Patient was placed on BactrimDS twice daily x10 days for outpatient management after discussion with Dr. Hilliard. - 07/07/23 CT abdomen/pelvis obtained at that time showed Left-sided nephrostomy is present extendingto the bladder. There is an irregularly shaped hypodense focus in the upper pole of the kidney without enhancement. Mucosal thickening versus underfilling of the colon. -07/08 Patient again presents to [facility] with transfer to [facility] for direct admission. -Patient notes dysuria, flank pain, vomiting - Afebrile, VSS -Repeat UA/culture, culture of nephrostomy tube pending -We will continue outpatient Bactrim regimen pending culture results 3. Cancer related pain -Previous pain regimen MS Contin 45 mg BID. Oxycodone 5 mg & 10 mg q4hrs PRN breakthrough, Gabapentin 300mg qHS. PRN IV 0.5mg Dilaudid. -An anonymous tip was left on 06/[address] Martin's office indicating a concern that patient was selling her pain meds -Patient seen via telehealth visit on 06/22/2023. MS Contin was discontinued at that time. She was started on oxycodone 10 mg every 6 hours as needed for pain with plan for follow-up in 1 month. -Pain regimen while inpatient Oxycodone 10mg q6 hrs. Gabapentin 300mg qHS. IV Dilaudid breakthrough. 4. Nephrostomy status - Nephrostomy tube was exchanged on 04/29/2023 -Patient was scheduled with interventional radiology for nephroureteral tube change on 06/24/2023. Patient did not show for appointment. -Patient does not currently follow with a urologist. She was supposed to see Dr. Andrea at [facility]. Referral was sent to this provider to be scheduled end of May/early June. Patient did not dothis. -Discussion with Dr. Martin via telehealth visit, patient was encouraged again to follow-up with [facility] urology for possible nephrectomy in order to discontinue nephrostomy bag and prevent recurrent infections. This in order to ultimately discontinue pain medications for this problem. 5. Hypertension -new onset hypertension in ED evaluation. -Asymptomatic -BPs 160s/90s 110s -Admission laboratory work pending 6. Asthma -asymptomatic 7. Tobacco use -patient notes she has quit 8. Anxiety Continue home med Ativan 1 mg every 8 as needed for anxiety Mood stable 9. Sacral fracture - 04/27 CT with findings concerning for New serpiginous areas of sclerosis of both sacral ala, concerning for sacral insufficiency fractures - Patient has not undergone planned DEXA scan outpatient since last admission Patient is a 32-year-old with Stabe IIIB SCC of the cervix with recurrent urinary tract infections in the setting of left nephrostomy tube in place. Activity: Up ad marisa Diet: regular IVF: NS20 UOP: 50cc in nephrostomy bag Pain control: Oral oxycodone 10 mg every 6, IV Dilaudid breakthrough VTE prophylaxis: SCDs Code: Full Disposition: Pain management. Urinalysis, urine culture, culture of nephrostomy pending. Continue outpatient regimen of Bactrim pending culture results. Possible nephrostomy tube exchange. Ensure urology follow-up after discharge for definitive surgical management. Patient seen and examined with senior resident Dr. Jones Problem List/Past Medical History Ongoing Acute kidney injury Anxiety Asthma Bilateral flank pain Cancer related pain Cervical cancer Complicated UTI (urinary tract infection) Decreased appetite Dehydration DVT prophylaxis History of chemotherapy History of radiation therapy Left flank pain Moderate protein-calorie malnutrition Nausea and vomiting Nephrostomy status Obstructive uropathy Port-A-Cath in place Premature menopause Pyelonephritis Procedure/Surgical History Nephrostomy with tube drainage: 01/10/21 JJ stent: 11/15/20 Radiation: 06/2020 Cervical biopsy: 2019 Tumor cells, benign: 2001 Nephrostomy with tube drainage Medications Home Medications (8) Active Calcium Plus Vitamin D3 600 mg-12.5 mcg (500 intl units) oral capsule 2 cap(s), Oral, qDay gabapentin 300 mg oral capsule 1 cap(s), Oral, qHS LORazepam 1 mg oral tablet 1 mg = 1 tab(s), Oral, q8h LORazepam 1 mg oral tablet 1 mg = 1 tab(s), PRN, Oral, q8h mirtazapine 15 mg oral tablet 15 mg = 1 tab(s), Oral, qDay ondansetron 4 mg oral tablet 4 mg = 1 tab(s), PRN, Oral, q6h ondansetron 4 mg oral tablet 4 mg = 1 tab(s), PRN, Oral, q6h oxyCODONE 10 mg oral tablet ( IMMEDIATE release ) 10 mg = 1 tab(s), PRN, Oral, q6h Allergies Oranges penicillin Social History Alcohol - Denies Alcohol Use, 06/13/2020 Use: Current. Type: Beer. Frequency: 1-2 times per week., 12/21/2021 Home/Environment - No Risk, 06/13/2020 Domestic Concerns: None. Living situation: Home/Independent. Safe place to go: Yes. Lives In: Mobile home, 1st floor bedroom, 1st floor bathroom. Current Home Treatments None. Professional Skilled Services or Special Community Resources None. Financial concerns: No. Marital Status: Unmarried., 06/13/2020 Nutrition/Health - No Risk, 06/13/2020 Type of diet: Regular. Appetite Fair. Eating Difficulties None. Caffeine intake amount: 1 can pop per day., 06/13/2020 Sexual Sexually active: Yes. First active at age: 18 Years. Current partners: 1. Number of lifetime partners: 7. Self described orientation: Straight or heterosexual. Other contraceptive use: condoms. History of sexual abuse: No. Gender Identity: Identifies as female., 04/12/2020 Substance Abuse - Denies Substance Abuse, 06/13/2020 Use: Never., 04/12/2020 Tobacco Nicotine Use: 5-9 cigarettes (between 1/4 to 1/2 pack)/day in last 30 days. Type: Cigarettes. Tobacco use per day: 10. Number of years: 10. Started at age: 19 Years. Previous treatment: None. Ready to change: Yes., 04/12/2020 Immunizations hepatitis B pediatric vaccine: 0 unknown unit (06/16/01) hepatitis B pediatric vaccine: 0 unknown unit (06/21/98) measles/mumps/rubella virus vaccine: 0 unknown unit (06/16/01) Code Status Code Status - Ordered -- 07/08/23 22:24:00 EDT, Full Code, Constant Order Digitally Signed by ANGELA ALAVRADO DO on 07/09/2023 04:30 AM [id number] History and physical note Date of Service 07/09/2023 Chief Complaint Dysuria, vomiting, flank pain History of Present Illness Patient is a 32-year-old G0 with a history of 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 She has a left nephrostomy tube in place. She has chronic pyelonephritis. She has cancer related pain. Patient has a known recurrent history of complicated urinary tract infection. These include with bacteria such as ESBL/E. coli/Enterococcus/Klebsiella pneumonia. She has had multiple admissions in the past for the same problem. She was most recently admitted to [facility] on 04/27 to05/07/23. She was subsequently discharged on daptomycin and ciprofloxacin to continue until 05/16. She was also seen at [facility] on 07/07. At that time, she had recently finished a course of ciprofloxacin and her repeat urinalysis was consistent with UTI. CT abdomen/pelvis was performed which showed Left-sided nephrostomy is present extending to the bladder. There is an irregularly shaped hypodensefocus in the upper pole of the kidney without enhancement. Mucosal thickening versus underfilling of the colon. Patient was placed on Bactrim DS twice daily x10 days for outpatient management per . She presented to [facility] again 07/08/23 with complaints of dysuria, flank pain, vomiting with suspected UTI/kidney infection per patient. A urinalysis and urine culture were obtained there, however records are not with the patient upon evaluation. She was transferred from [facility] emergency department to [place] emergency department with plan for direct admission to [facility]. She is currently awaiting bed placement at the time of evaluation. Today she notes for the past 3 days she has had vomiting with associated flank pain bilaterally. She notes that it is more severe on the left where her nephrostomy tube is in place. She also notes vaginal pain, namely dysuria for 1 to 2 hours after urinating. She notes some diarrhea x2 days as well as some intermittent chills. She denies fevers, chest pain, difficulty breathing, constipation, new vaginal or vulvar lesions. 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 Menarche age 14. Amenorrheic since initiation of Chemoradiation. Denies mammogram ever. Colonoscopy in 2020. Denies history of STDs. Not sexually active. Family History Mother with breast cancer Sister with cervical cancer Grandmother with cervical cancer Aunts with cervical cancer Cousins with cervical cancer ONCOLOGY HISTORY: - 04/04/2020: CT scan abdomen and pelvis. [facility]. Thickened cervical wall with involvementof the lower uterine segment, highly concerning for malignancy. There is involvement of the left ureter resulting in left hydronephrosis and hydroureter. Mildly enlarged right external iliac lymph node measuring 1.4 x 1.1 x 1.2 cm. - 04/13/2020: CT thorax. No evidence of active malignancy in the thorax. - 04/13/2020: IR nephrostomy tube insertion on the left. - 04/13/2020: MRI of the pelvis with contrast. Large uterine mass with extension to the pelvic fat and possible involvement of the mesorectal fascia. There is a prominent but not pathologically enlarged left pelvic lymph node which could be metastatic. Large cervical mass measuring 4.7 x 5.8 cm. - : Examination under Anesthesia, Cystourethroscopy, Cervical biopsies, Proctoscopy - 04/26/2020 Week #1 Cisplatin 40mg/m2 - 05/03/2020 Week #2 Cisplatin 20mg/m2 - 05/10/2020 Week #3 Cisplatin 20mg/m2 - 05/17/2020 Week #4 Cisplatin 20mg/m2 - 05/24/2020 Week #5 Cisplatin 20mg/m2 - 05/31/2020 Week #6 Cisplatin 20mg/m2 - 08/18/2020: CT urogram. Left percutaneous nephrostomy tube in place. Minimal left upper pole striated nephrogram. This finding is nonspecific and may be seen with inflammation or obstruction. Sincethere is no significant adjacent infiltrative changes within the perinephric fat, this could potentially be indicative of minimal left side obstruction. Improvement of the cervix lesion since the prior exam, diminished in size since prior study. - 12/07/2020 PET/CT no abnormal uptake at the uterine cervix, FDG avid lymphadenopathy or metastatic disease is seen. - 2020 CT abdomen and pelvis decreased left nephrogram with ectasia of the left upper tract and enhancement of the uroepithelium lining is worrisome for obstruction and/or infection following interval ureteral stent removal. - 01/09/2021 MRI of the pelvis treated disease with no significant residual tumor identified on this exam. Mild infiltrative change within the deep pelvic fat is presumably the result of radiation therapy, and attention to follow-up is recommended. Re-demonstration of mildly dilated left ureter and collecting system, compatible of history of pyelonephritis. RADIATION SUMMARY: Dates of treatment: 04/26/2020 - 06/07/2020 Treatment details : Initially the pelvis was treated to a dose of 4500 cGy in 25 fractions using intensity modulated radiation therapy with 6 MV photons. Following this dose the parametrium was boosted an additional 540 cGy in 3 fractions through AP PA quintero with midline block taken her final pelvic tumor dose to 5040 centigray. She was treated with concurrent cisplatin based chemotherapy. The patient then underwent for intracavitary brachii therapy applications with [id number] iridium 192afterloading device utilizing a tandem and ring. 2400 cGy was delivered at 600 cGy per fraction to point A from June 14, 2020 through July 11, 2020. The plan was to deliver 5 brachytherapy applications, however, the patient failed to show for surgery 3 times. Therefore, the decision to foregothe last treatment was made as it had been nearly 3 months since initiating therapy. Course: C1 Pelvis Treatment Site Ref. ID Energy Dose/Fx (cGy) #Fx Total Dose (cGy) Start Date End Date Elapsed Days IMRT SEAM RUBBER Pelvis 6X 180 4,500 04/26/2020 06/02/2020 37 3D PM Bst 18X 180 540 06/05/2020 06/07/2020 2 GENETIC TESTING: - [facility] No reportable somatic or germline pathogenic or actionable mutations were found. Tumor mutational burden was 39th percentile. Microsatellite instability status stable. Somatic variants of unknown significance were found in PRKDC, TRAF3, AGUSTIN, ERBB4, and CXCR4. Variants of unknown significance and germline mutations were found in BRCA2 and RAD51C.DNA mismatch repair protein expression was normal. PD-L1 expression was positive. Review of Systems See HPI for pertinent positives. A full review of systems was conducted and found otherwise to be negative. Physical Exam Vitals and Measurements T: 36.4 C (Oral) TMIN: 36 C (Oral) TMAX: 36.4 C (Oral) HR: 71 RR: 18 BP: 163/113 SpO2: 97% WT: 62.8kg Weight Dosing Weight: 62.8 kg (07/08/23) General: A&O x3 HEENT: normocephalic, atraumatic Cardio: RRR, no murmurs, no rubs, gallops Lungs: Breathing w/out difficulty, no use of accessory muscles, clear to auscultation bilaterally GI: Soft, mild tenderness left lower quadrant, otherwise nontender, active bowel sounds, nephrostomy tube in place on left side, no erythema, or drainage at insertion site. Urostomy bag with approximately 50 cc of clear urine. No significant flank tenderness on the right side. Mild tenderness to the left side. Extremities: non-edematous, neg Homans sign Neuro: Normal sensation Psychiatric: Normal affect, normal demeanor. Well groomed. Non-pressured speech. Skin: warm, no rashes, Port-A-Cath in place at right chest Lab Results CBC, CMP, urinalysis, urine culture, nephrostomy culture Imaging Results and Diagnostics Pap smear 05/22/2023 Atypical from cells of undetermined significance (ASCUS). HPV high-risk negative. CT abdomen/pelvis 07/07/2023 Findings: Liver: Fatty change of the liver are present. There is no evidence of focal abnormality. Biliary: Normal. No visible dilatation or calcification. Pancreas: Normal. No lesion, fluid collection, ductal dilatation, or atrophy Spleen: Normal. No enlargement or focal lesion. Kidneys: Right kidney is unremarkable. There is a left-sided nephrostomy tube extending to the bladder. There is an irregular shaped hypointense focus in the upper pole of the left kidney. Adrenals: Normal. No mass or enlargement. Aorta/vascular: Normal. No aneurysm or dissection. Retroperitoneum: Normal. No mass or adenopathy. Bowel/mesentery: There is underfilling versus mucosal thickening of the colon. There is no evidenceof obstructing lesion. Abdominal wall: Normal. No mass or hernia. Urinary bladder: Normal. No visible focal wall thickening, lesion, or calculus. Pelvic nodes: Normal. No adenopathy. Pelvic organs uterus is absent. Bones: Normal. No bony lesion or fracture. Lung bases: Normal. No visible pulmonary or pleural disease. Other: Negative. Conclusion: 1. Left-sided nephrostomy is present extending the bladder. There is an irregularly shaped hypointense focus of the portal kidney without enhancement. 2. Mucosal thickening versus underfilling of the colon. Assessment/Plan 1. 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 Discussed with IR, it is the uterus with post-radiation changes. Therefore, no biopsy recommended. - 04/27 CT A/P in ER showed similar mass as prior scan. Left collecting system and proximal ureteralwall thickening concerning for pyelitis/ascending UTI. New concern for sacral insufficiency fractures. - 05/22/2023 Pap smear showed Atypical from cells of undetermined significance (ASCUS). HPV high-risk negative. Plan for follow-up in 1 year for repeat Pap smear. - 07/07/23 CT A/P showed Left-sided nephrostomy is present extending the bladder. There is an irregularly shaped hypointense focus of the portal kidney without enhancement. Mucosal thickening versus underfilling of the colon. Otherwise normal. 2. Complicated UTI (urinary tract infection) - 02/23 urine culture showed ESBL, patient completed 4 weeks of ertapenem at that time - 04/27 UA positive for nitrites and large esterase. Nephrostomy urine culture positive for Klebsiella, Myroides, Enterococcus, Vagococcus. Patient underwent inpatient antibiotics. - CT A/P 04/27: Subcentimeter cysts suspected in the left. Left collecting system and proximal ureteral wall thickening concerning for pyelitis/ascending UTI. no comment on right kidney kidney. There is mild wall thickening and enhancement of the left renal pelvis and proximal ureter. -05/07/23 Subsequently discharged on daptomycin and ciprofloxacin until 05/16 -07/07/23 Patient presented to [facility] for UTI symptoms. - Urinalysis on 07/07 was remarkable for signs of UTI at [facility]. Patient was placed on BactrimDS twice daily x10 days for outpatient management after discussion with Dr. Hilliard. - 07/07/23 CT abdomen/pelvis obtained at that time showed Left-sided nephrostomy is present extendingto the bladder. There is an irregularly shaped hypodense focus in the upper pole of the kidney without enhancement. Mucosal thickening versus underfilling of the colon. -07/08 Patient again presents to [facility] with transfer to [facility] for direct admission. -Patient notes dysuria, flank pain, vomiting - Afebrile, VSS -Repeat UA/culture, culture of nephrostomy tube pending -We will continue outpatient Bactrim regimen pending culture results 3. Cancer related pain -Previous pain regimen MS Contin 45 mg BID. Oxycodone 5 mg & 10 mg q4hrs PRN breakthrough, Gabapentin 300mg qHS. PRN IV 0.5mg Dilaudid. -An anonymous tip was left on 06/[address] Martin's office indicating a concern that patient was selling her pain meds -Patient seen via telehealth visit on 06/22/2023. MS Contin was discontinued at that time. She was started on oxycodone 10 mg every 6 hours as needed for pain with plan for follow-up in 1 month. -Pain regimen while inpatient Oxycodone 10mg q6 hrs. Gabapentin 300mg qHS. IV Dilaudid breakthrough. 4. Nephrostomy status - Nephrostomy tube was exchanged on 04/29/2023 -Patient was scheduled with interventional radiology for nephroureteral tube change on 06/24/2023. Patient did not show for appointment. -Patient does not currently follow with a urologist. She was supposed to see Dr. Andrea at [facility]. Referral was sent to this provider to be scheduled end of May/early June. Patient did not dothis. -Discussion with Dr. Martin via telehealth visit, patient was encouraged again to follow-up with [facility] urology for possible nephrectomy in order to discontinue nephrostomy bag and prevent recurrent infections. This in order to ultimately discontinue pain medications for this problem. 5. Hypertension -new onset hypertension in ED evaluation. -Asymptomatic -BPs 160s/90s 110s -Admission laboratory work pending 6. Asthma -asymptomatic 7. Tobacco use -patient notes she has quit 8. Anxiety Continue home med Ativan 1 mg every 8 as needed for anxiety Mood stable 9. Sacral fracture - 04/27 CT with findings concerning for New serpiginous areas of sclerosis of both sacral ala, concerning for sacral insufficiency fractures - Patient has not undergone planned DEXA scan outpatient since last admission Patient is a 32-year-old with Stabe IIIB SCC of the cervix with recurrent urinary tract infections in the setting of left nephrostomy tube in place. Activity: Up ad marisa Diet: regular IVF: NS20 UOP: 50cc in nephrostomy bag Pain control: Oral oxycodone 10 mg every 6, IV Dilaudid breakthrough VTE prophylaxis: SCDs Code: Full Disposition: Pain management. Urinalysis, urine culture, culture of nephrostomy pending. Continue outpatient regimen of Bactrim pending culture results. Possible nephrostomy tube exchange. Ensure urology follow-up after discharge for definitive surgical management. Patient seen and examined with senior resident Dr. Jones Problem List/Past Medical History Ongoing Acute kidney injury Anxiety Asthma Bilateral flank pain Cancer related pain Cervical cancer Complicated UTI (urinary tract infection) Decreased appetite Dehydration DVT prophylaxis History of chemotherapy History of radiation therapy Left flank pain Moderate protein-calorie malnutrition Nausea and vomiting Nephrostomy status Obstructive uropathy Port-A-Cath in place Premature menopause Pyelonephritis Procedure/Surgical History Nephrostomy with tube drainage: 01/10/21 JJ stent: 11/15/20 Radiation: 06/2020 Cervical biopsy: 2019 Tumor cells, benign: 2001 Nephrostomy with tube drainage Medications Home Medications (8) Active Calcium Plus Vitamin D3 600 mg-12.5 mcg (500 intl units) oral capsule 2 cap(s), Oral, qDay gabapentin 300 mg oral capsule 1 cap(s), Oral, qHS LORazepam 1 mg oral tablet 1 mg = 1 tab(s), Oral, q8h LORazepam 1 mg oral tablet 1 mg = 1 tab(s), PRN, Oral, q8h mirtazapine 15 mg oral tablet 15 mg = 1 tab(s), Oral, qDay ondansetron 4 mg oral tablet 4 mg = 1 tab(s), PRN, Oral, q6h ondansetron 4 mg oral tablet 4 mg = 1 tab(s), PRN, Oral, q6h oxyCODONE 10 mg oral tablet ( IMMEDIATE release ) 10 mg = 1 tab(s), PRN, Oral, q6h Allergies Oranges penicillin Social History Alcohol - Denies Alcohol Use, 06/13/2020 Use: Current. Type: Beer. Frequency: 1-2 times per week., 12/21/2021 Home/Environment - No Risk, 06/13/2020 Domestic Concerns: None. Living situation: Home/Independent. Safe place to go: Yes. Lives In: Mobile home, 1st floor bedroom, 1st floor bathroom. Current Home Treatments None. Professional Skilled Services or Special Community Resources None. Financial concerns: No. Marital Status: Unmarried., 06/13/2020 Nutrition/Health - No Risk, 06/13/2020 Type of diet: Regular. Appetite Fair. Eating Difficulties None. Caffeine intake amount: 1 can pop per day., 06/13/2020 Sexual Sexually active: Yes. First active at age: 18 Years. Current partners: 1. Number of lifetime partners: 7. Self described orientation: Straight or heterosexual. Other contraceptive use: condoms. History of sexual abuse: No. Gender Identity: Identifies as female., 04/12/2020 Substance Abuse - Denies Substance Abuse, 06/13/2020 Use: Never., 04/12/2020 Tobacco Nicotine Use: 5-9 cigarettes (between 1/4 to 1/2 pack)/day in last 30 days. Type: Cigarettes. Tobacco use per day: 10. Number of years: 10. Started at age: 19 Years. Previous treatment: None. Ready to change: Yes., 04/12/2020 Immunizations hepatitis B pediatric vaccine: 0 unknown unit (06/16/01) hepatitis B pediatric vaccine: 0 unknown unit (06/21/98) measles/mumps/rubella virus vaccine: 0 unknown unit (06/16/01) Code Status Code Status - Ordered -- 07/08/23 22:24:00 EDT, Full Code, Constant Order Digitally Signed by ANGELA ALVARADO DO on 07/09/2023 04:30 AM [id number] Discharge instructions Patient Education 05/07/2023 16:32:38 Urinary Tract Infection, Adult Urinary Tract Infection, Adult A urinary tract infection (UTI) is an infection of any part of the urinary tract. The urinary tractincludes the kidneys, ureters, bladder, and urethra. These organs make, store, and get rid of urinein the body. Your health care provider may use other names to describe the infection. An upper UTI affects the ureters and kidneys (pyelonephritis). A lower UTI affects the bladder (cystitis) and urethra (urethritis). What are the causes? Most urinary tract infections are caused by bacteria in your genital area, around the entrance to your urinary tract (urethra). These bacteria grow and cause inflammation of your urinary tract. What increases the risk? You are more likely to develop this condition if: You have a urinary catheter that stays in place (indwelling). You are not able to control when you urinate or have a bowel movement (you have incontinence). You are female and you: ?Use a spermicide or diaphragm for control. ?Have low estrogen levels. ?Are . You have certain genes that increase your risk (genetics). You are sexually active. You take antibiotic medicines. You have a condition that causes your flow of urine to slow down, such as: ?An enlarged prostate, if you are male. ?Blockage in your urethra (stricture). ?A kidney stone. ?A nerve condition that affects your bladder control (neurogenic bladder). ?Not getting enough to drink, or not urinating often. You have certain medical conditions, such as: ?Diabetes. ?A weak disease-fighting system (immunesystem). ?Sickle cell disease. ?Gout. ?Spinal cord injury. What are the signs or symptoms? Symptoms of this condition include: Needing to urinate right away (urgently). Frequent urination or passing small amounts of urine frequently. Pain or burning with urination. Blood in the urine. Urine that smells bad or unusual. Trouble urinating. Cloudy urine. Vaginal discharge, if you are female. Pain in the abdomen or the lower back. You may also have: Vomiting or a decreased appetite. Confusion. Irritability or tiredness. A fever. Diarrhea. The first symptom in older adults may be confusion. In some cases, they may not have any symptoms until the infection has worsened. How is this diagnosed? This condition is diagnosed based on your medical history and a physical exam. You may also have other tests, including: Urine tests. Blood tests. Tests for sexually transmitted infections (STIs). If you have had more than one UTI, a cystoscopy or imaging studies may be done to determine the cause of the infections. How is this treated? Treatment for this condition includes: Antibiotic medicine. Xfkx-cny-jhurqwv medicines to treat discomfort. Drinking enough water to stay hydrated. If you have frequent infections or have other conditions such as a kidney stone, you may need to see a health care provider who specializes in the urinary tract (urologist). In rare cases, urinary tract infections can cause sepsis. Sepsis is a life- threatening condition that occurs when the body responds to an infection. Sepsis is treated in the hospital with IV antibiotics, fluids, and other medicines. Follow these instructions at home: Medicines Take vdsw-wrm-hkrpyuc and prescription medicines only as told by your health care provider. If you were prescribed an antibiotic medicine, take it as told by your health care provider. Do notstop using the antibiotic even if you start to feel better. General instructions Make sure you: ?Empty your bladder often and completely. Do not hold urine for long periods of time. ?Empty your bladder after sex. ?Wipe from front to back after a bowel movement if you are female. Use each tissue one time when you wipe. Drink enough fluid to keep your urine pale yellow. Keep all follow-up visits as told by your health care provider. This is important. Contact a health care provider if: Your symptoms do not get better after 1 2 days. Your symptoms go away and then return. Get help right away if you have: Severe pain in your back or your lower abdomen. A fever. Nausea or vomiting. Summary A urinary tract infection (UTI) is an infection of any part of the urinary tract, which includes the kidneys, ureters, bladder, and urethra. Most urinary tract infections are caused by bacteria in your genital area, around the entrance to your urinary tract (urethra). Treatment for this condition often includes antibiotic medicines. If you were prescribed an antibiotic medicine, take it as told by your health care provider. Do notstop using the antibiotic even if you start to feel better. Keep all follow-up visits as told by your health care provider. This is important. This information is not intended to replace advice given to you by your health care provider. Make sure you discuss any questions you have with your health care provider. Document Released: 07/30/2006 Document Revised: 10/07/2019 Document Reviewed: 04/29/2019 [employer] Patient Education 2020 [employer] Follow Up Care 04/27/2023 16:04:23 With:[facility] [phone] Address:Unknown When:05/13/2023 14:00:00 Comments:This is the initial appointment for your chest port needle/dressing change if you are unable to schedule yourself for Friday with [facility] when you call on Friday. Please call to cancel this appointment if you are able to get an appointment with [facility]. With:[facility] (labwork and port needle/dressing changes) [phone] Address: When: Unknown Comments:The flight crew scheduler who would schedule you for this dressing change is out of the office this week. Nursing filling and packing supervisor was unable to schedule you as well. You will need to call them to schedule your appointments after discharge for future weekly dressing changes every Friday. Labwork does not have to be scheduled ahead of time (allow walk-ins). With:FLIP MARTIN MD Address: [address] [place] [address] [place] [address] [phone] When:05/15/2023 15:20:00 [facility] 07-05-2023 Note Discharge Instructions Thank you for allowing [facility] to assist you with your healthcare needs. The following is importantdischarge information regarding your hospital visit. Your Care Team FLIP MARTIN MD Your Diagnosis Complicated UTI (urinary tract infection) Bilateral flank pain Nephrostomy status Cervical cancer, Cervical ca Tobacco use Anxiety Asthma Decreased appetite Sacral lesion Cancer related pain Urination painful What to do next Instructions From Your Doctor Antibiotics to continue until 05/16/2023. Weekly Friday blood work to be done, results will be faxed to Dr. Ruvalcaba For DEXA scan outpatient Scheduled Follow-Up Appointments Appointment Type When With Where Contact InformationINF Labwork 05/13/2023 02:00 PM EDT Infusion Therapy SO OV Follow Up 05/15/2023 03:20 PM EDT FLIP MARTIN MD [facility] [address] [place] [id number] IR Neph Cath-Neph Ureter W/Guide Left 06/24/2023 11:00 AM EDT IR Follow Up Appointments Follow Up with FLIP MARTIN MD When 05/15/2023 03:20 PM EDT Where: [address] [place] [address] [place] [address] [phone] Follow Up with [facility] [phone] When 05/13/2023 02:00 PM EDT Why: This is the initial appointment for your chest port needle/dressing change if you are unable to schedule yourself for Friday with [facility] when you call on Friday. Please call to cancel this appointment if you are able to get an appointment with [facility]. Follow Up with [facility] (labwork and port needle/dressing changes) [phone] When Why: The flight crew scheduler who would schedule you for this dressing change is out of the office this week. Nursing filling and packing supervisor was unable to schedule you as well. You will need to call them to schedule your appointments after discharge for future weekly dressing changes every Friday. Labwork does not have to be scheduled ahead of time (allow walk-ins). Where: The Following Activity and Diet Have Been Ordered for You Discharge Activity - Ordered -- Resume your pre-hospitalization activity, 05/07/23 15:04:00 EDT Discharge Diet - Ordered -- No changes were made to your diet during your hospital stay. Please resume your pre hospitalization diet on discharge., 05/07/23 15:04:00 EDT The Following Equipment Has Been Ordered for You Discharge Home Equipment Discharge Communication Order - Ordered -- Once patient able to void consistently, can cap the tube - notify IR [id number], 04/29/23 10:34:14 EDT The Following Treatments Have Been Ordered for You Discharge Labs Discharge Outpatient Labwork - Ordered -- Chest Port Care/ Labs, Chemo/ATB infusion, Your appointment is: 05/13/23 14:00:00 EDT, Stop Datefor chest port care/labs is 05/16/2023., 05/07/23 14:48:00 EDT Discharge Outpatient Labwork - Ordered -- CBC, differential, hepatic panel, renal panel and CPK every Friday and send results to fax number [phone] Ruvalcaba CBC, differential, hepatic panel, renal panel and CPK every Fridayand send results to fax number CBC, differential, he... Discharge Radiology No qualifying data available. Other Therapies No qualifying data available. Post Acute Orders No qualifying data available. Someone Will Contact You Regarding These Home Health Referrals No home referrals have been ordered for you. No one will call you. Allergies Oranges penicillin Medications Please ask your primary doctor or pharmacist before taking any other medication not listed, including over the counter drugs, herbal medications, vitamins and or supplements as they may interact withyour home medications. What How Much When Instructions Last Dose New ciprofloxacin (ciprofloxacin 500 mg oral tablet) 1 tab(s) by mouth Every 12 hours Duration: 10 Days Pickup at [facility] New DAPTOmycin (DAPTOmycin 500 mg intravenous injection) 383.4 Milligram Intravenous Every 24 hours Duration: 10 Days Pickup at [facility] Changed LORazepam (LORazepam 1 mg oral tablet) 1 tab(s) by mouth Every 8 hours Changed gabapentin (gabapentin 300 mg oral capsule) 1 cap by mouth Daily at bedtime Changed mirtazapine (mirtazapine 15 mg oral tablet) 1 tab(s) by mouth Once a day Changed morphine (morphine 30 mg/ 8 to 12 hr oral tablet, extended release) 1 tab(s) by mouth Every 12 hours Changed ondansetron (ondansetron 4 mg oral tablet) 1 tab(s) by mouth Every 6 hours as needed for Nausea/Vomiting Changed oxyCODONE (oxyCODONE 10 mg oral tablet ( IMMEDIATE release )) 1 tab(s) by mouth Every 4 hours as needed for Pain Pharmacy Information [facility]: [address] [place] [phone] Please take this list to your next doctor s visit. Bring all medications you take, including over the counter medications, herbals and other supplements with you to your doctor s visit. Patients and families are reminded to discard old lists and to update any records with all medication providers or retail pharmacies. Education Materials Urinary Tract Infection, Adult A urinary tract infection (UTI) is an infection of any part of the urinary tract. The urinary tractincludes the kidneys, ureters, bladder, and urethra. These organs make, store, and get rid of urinein the body. Your health care provider may use other names to describe the infection. An upper UTI affects the ureters and kidneys (pyelonephritis). A lower UTI affects the bladder (cystitis) and urethra (urethritis). What are the causes? Most urinary tract infections are caused by bacteria in your genital area, around the entrance to your urinary tract (urethra). These bacteria grow and cause inflammation of your urinary tract. What increases the risk? You are more likely to develop this condition if: You have a urinary catheter that stays in place (indwelling). You are not able to control when you urinate or have a bowel movement (you have incontinence). You are female and you: ? Use a spermicide or diaphragm for control. ? Have low estrogen levels. ? Are . You have certain genes that increase your risk (genetics). You are sexually active. You take antibiotic medicines. You have a condition that causes your flow of urine to slow down, such as: ? An enlarged prostate, if you are male. ? Blockage in your urethra (stricture). ? A kidney stone. ? A nerve condition that affects your bladder control (neurogenic bladder). ? Not getting enough to drink, or not urinating often. You have certain medical conditions, such as: ? Diabetes. ? A weak disease-fighting system (immunesystem). ? Sickle cell disease. ? Gout. ? Spinal cord injury. What are the signs or symptoms? Symptoms of this condition include: Needing to urinate right away (urgently). Frequent urination or passing small amounts of urine frequently. Pain or burning with urination. Blood in the urine. Urine that smells bad or unusual. Trouble urinating. Cloudy urine. Vaginal discharge, if you are female. Pain in the abdomen or the lower back. You may also have: Vomiting or a decreased appetite. Confusion. Irritability or tiredness. A fever. Diarrhea. The first symptom in older adults may be confusion. In some cases, they may not have any symptoms until the infection has worsened. How is this diagnosed? This condition is diagnosed based on your medical history and a physical exam. You may also have other tests, including: Urine tests. Blood tests. Tests for sexually transmitted infections (STIs). If you have had more than one UTI, a cystoscopy or imaging studies may be done to determine the cause of the infections. How is this treated? Treatment for this condition includes: Antibiotic medicine. Fajl-jxz-iwtbitx medicines to treat discomfort. Drinking enough water to stay hydrated. If you have frequent infections or have other conditions such as a kidney stone, you may need to see a health care provider who specializes in the urinary tract (urologist). In rare cases, urinary tract infections can cause sepsis. Sepsis is a life- threatening condition that occurs when the body responds to an infection. Sepsis is treated in the hospital with IV antibiotics, fluids, and other medicines. Follow these instructions at home: Medicines Take zees-xro-erfkwtq and prescription medicines only as told by your health care provider. If you were prescribed an antibiotic medicine, take it as told by your health care provider. Do notstop using the antibiotic even if you start to feel better. General instructions Make sure you: ? Empty your bladder often and completely. Do not hold urine for long periods of time. ? Empty your bladder after sex. ? Wipe from front to back after a bowel movement if you are female. Use each tissue one time when youwipe. Drink enough fluid to keep your urine pale yellow. Keep all follow-up visits as told by your health care provider. This is important. Contact a health care provider if: Your symptoms do not get better after 1 2 days. Your symptoms go away and then return. Get help right away if you have: Severe pain in your back or your lower abdomen. A fever. Nausea or vomiting. Summary A urinary tract infection (UTI) is an infection of any part of the urinary tract, which includes the kidneys, ureters, bladder, and urethra. Most urinary tract infections are caused by bacteria in your genital area, around the entrance to your urinary tract (urethra). Treatment for this condition often includes antibiotic medicines. If you were prescribed an antibiotic medicine, take it as told by your health care provider. Do notstop using the antibiotic even if you start to feel better. Keep all follow-up visits as told by your health care provider. This is important. This information is not intended to replace advice given to you by your health care provider. Make sure you discuss any questions you have with your health care provider. Document Released: 07/30/2006 Document Revised: 10/07/2019 Document Reviewed: 04/29/2019 [employer] Patient Education 2020 [employer] Additional Information VACCINATE! IT SAVES LIVES! Members of the community who have not yet received the COVID-19 vaccine and would like to receive it can visit one of [facility] vaccine clinics. There are many vaccine clinic locations within the [facility]. For locations and available times, please visit [email or web address].[place].gov/. It is important to note that some COVID mobile vaccine clinics are held outdoors and may be canceled in rainy or stormy conditions. To learn more about pediatric vaccinations (ages 5-11), we invite you to visit the [facility] webpage. [email or web address].[email or web address]/[email or web address] [email or web address] learn more about the COVID-19 vaccine, we invite you to visit the CDC website for a list of frequently asked questions.https://www.cdc.gov/coronavirus/2019-ncov/vaccines/faq.html [place] [facility] Patient [facility] Access Instructions: Stay connected with your healthcare team and access your personal medical information anytime with the [facility] Patient Portal. Please follow the directions below to create your [facility] account: 1.Access the email account you provided upon registration to the hospital/physician office.2.Look for an invitation email from [facility].3.Open the email and access the invitation link: AcceptInvitation to [facility].4.Fill in the required quintero to create your account. To access your account, visit [employer]. Click the blue button labeled Access Patient Portal and then log in with the username and password that you created in the steps above. You will be able to view your test results, lab results, a summary of your visits, upcoming appointments and more. There is also a convenient messaging option where you can send secure messages to your p [employer]. In addition, you will have the ability to download any documents or summaries to your computer and/or send the information securely to a physician. Remember that your healthcare information is confidential, so carefully consider who you will allowto register on the [facility] [facility] Patient Portal for access to your information. You can also access the [facility] Patient Portal on the [facility]. Simply click on Patient Portal and then log into your account. If you would like to receive a full copy of your medical records, please contact the [facility] Medical Records Department by calling [phone], Friday through Friday between 8 a.m. and 4:30 p.m. HOW TO SAFELY DISPOSE OF PRESCRIPTION MEDICATIONS Please use one of the following methods to safely dispose of your unused medications. 1.Use a drug disposal kit: the drug disposal pouch allows you to safely discard your old and unuseddrugs. Ask your nurse to give you one when you are discharged.2.Visit a local take-back location: Many local pharmacies and police departments have programs that collect old and unwanted prescriptiondrugs. Call your local pharmacy or go to http://Wishabi.ConsumerBell/3T7Cf2t to find one close to you.3.Make use of household items: Use cat litter or old coffee grounds to dispose medications if other options arenot available. Mix your drugs with these household products, seal them in an airtight container andthrow it into the garbage. Call [facility]: [phone] to be sure your drugs can be disposed of in this way. Some medicines may require a different approach.4.Never flush your medications down the toilet. IF YOU HAVE BEEN PRESCRIBED AN OPIOID FOR PAIN If you have been prescribed an opioid (such as hydrocodone, oxycodone or morphine), it is critical to understand the possible side effects and risks of opioid pain medications. Even when taken as directed, opioids can have several side effects including: Tolerance, meaning you might need to take more of a medication for the same pain relief. Nausea, vomiting and/or constipation. Sleepiness, dizziness, dry mouth, confusion, depression or itching. Physical dependence, meaning you have withdrawal symptoms when a medication is stopped, can develop within a few days. KNOW YOUR RESPONSIBILITIES It is important to know exactly how much and how often to take the opioid pain medications you are prescribed. Never take opioids in higher amounts or more often than prescribed. Do not combine opioids with alcohol or other drugs that cause drowsiness, such as benzodiazepines, also known as benzos, including diazepam and alprazolam, muscle relaxants or sleep aids. Never sell or share prescription opioids. This is illegal. Store opioids in a secure place and out of reach of others (including children, family, friends and visitors). The last page of this document has been signed and retained as a CHART COPY. Signatures Patient Education Materials Urinary Tract Infection, Adult Medication Leaflets My discharge plan and instructions have been reviewed and explained to me and I,LALY NAVAS understand my current condition and have read and understand these discharge instructions. I have received a written copy of the plan/instructions. If I have questions, I am aware that I should contact my doctor. 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 Patient seen and examined. She is doing well, tolerating regular diet, ambulating, voiding. Pain is stable with pain medication. Denies chest pain, shortness of breath, fever, chills, night sweats. Objective Vitals and Measurements T: 36.8 C (Oral) TMIN: 36.6 C (Oral) TMAX: 37.1 C (Oral) HR: 81 RR: 16 BP: 109/74 SpO2: 99% Intake and Output 7AM Yesterday to 7AM Today Intake and Output (Last 24 hours) Intake Oral Intake 120.00 Output Urine Voided 0.00 Urostomy Output: 1200.00 Stool Count 0.00 Total Summary Total Intake 120.00 Total Output 1200.00 Fluid Balance -1080.00 Physical Exam General: A&O x3, no acute distress. Resting in bed. HEENT: normocephalic, atraumatic Cardio: Regular rate and rhythm Lungs: Breathing without difficulty, no use of accessory muscles. Clear breath sounds bilaterally. Gastrointestinal: Nondistended, soft, positive bowel sounds, mild suprapubic tenderness and bilateral lower quadrant tenderness. Genitourinary: left sided nephrostomy with yellow urine, skin site clean, dry and intact with dressing in place Extremities: Mild LE edema. Weight Dosing Weight: 63.9 kg (04/28/23) Dosing Weight: 63.9 kg (04/27/23) Medications Medications (15) Active Scheduled: (8) ciprofloxacin PMX 400 mg 200 mL, IV Piggyback, q12h DAPTOmycin 400 mg 8 mL, IV Piggyback, qDay gabapentin 300 mg Capsule 300 mg 1 cap(s), Oral, qHS mirtazapine 15 mg tablet 30 mg 2 tab(s), Oral, qDay morphine 30 mg ER tablet 60 mg 2 tab(s), Oral, q12h ondansetron 2 mg/ 1 mL 2 mL INJ 4 mg 2 mL, IV Push, q4h pantoprazole 40 mg VIAL 40 mg, IV Push, qDay senna 8.6 mg Tablet 17.2 mg 2 tab(s), Oral, qHS Continuous: (0) PRN: (7) docusate sodium 100 mg Capsule 100 mg 1 cap(s), Oral, BID HYDROmorphone 0.5 mg/0.5 mL PF syringe 0.5 mg 0.5 mL, IV Push, q3h LORAZEPam 1 mg Tablet 1 mg 1 tab(s), Oral, q8h ondansetron 4 mg tablet 4 mg 1 tab(s), Oral, q6h oxycodone 5 mg tablet (immediate release) 10 mg 2 tab(s), Oral, q4h oxycodone 5 mg tablet (immediate release) 15 mg 3 tab(s), Oral, q4h polyethylene glycol 3350 - UD packet 17 gram(s) 15 mL, Oral, BID Lab Results 05/07 05:08 WBC: 6.9 Hgb: 11.3 L Hct: 34.7 Platelet: 364 Neutrophil %: 48.2 L Glucose Level: 97 Sodium Level: 138 Potassium Level: 4.1 BUN: 15.0 Creatinine Lvl (s): 0.96 05/06 05:53 WBC: 5.5 Hgb: 11.7 L Hct: 35.8 Platelet: 389 Neutrophil %: 41.5 L Glucose Level: 115 H Sodium Level: 139 Potassium Level: 4.0 BUN: 14.0 Creatinine Lvl (s): 0.81 Assessment/Plan 1. Complicated UTI (urinary tract infection) 2. Bilateral flank pain 3. Nephrostomy status 4. Cervical cancer 5. Tobacco use 6. Anxiety 7. Asthma 8. Decreased appetite 9. Sacral lesion Patient is a 32 yo with history of Stage IIIB cervical cancer s/p chemoradiation currently in remission admitted for complicated urinary tract infection and Nephrostomy Tube exchange. Admit to regular floor Condition: Stable Vitals: q8hr Activity: Ambulate Diet: Regular IVF: HLIV Antibiotics: Daptomycin 6mg/kg IV, Cipro 500 BID PO Lines: Right port DVT Prophylaxis: SCDs Complicated UTI (urinary tract infection) - 02/23 urine culture showed ESBL, patient completed 4 weeks of ertapenem at that time - On admission patient presented with urinary retention. - Patient has been afebrile throughout her hospital stay, no leukocytosis - 04/27 UA positive for nitrites and large esterase - CT A/P 04/27: Subcentimeter cysts suspected in the left. Left collecting system and proximal ureteral wall thickening concerning for pyelitis/ascending UTI. no comment on right kidney kidney. There is mild wall thickening and enhancement of the left renal pelvis and proximal ureter. - 04/27 clean catch urine cultures NGTD. - Nephrostomy tube was exchanged on 04/29/2023 - 04/27 Nephrostomy urine culture positive for Klebsiella, Myroides, Enterococcus, Vagococcus. - Infectious disease consulted for antibiotic management due to complicated history of UTI, and multi-organism nephrostomy culture. Awaiting recommendations from ID. - S/P meropenem, Aztreonam per ID recommendation. -Continue daptomycin 6 mg/kg QD, and oral ciprofloxacin 400 mg twice daily which patient will be discharged to continue until 05/16/2023. ID recommends q. Friday CBC with differential, hepatic panel, renal panel and CPK - Abx an be given through patient's port which is already in place Nephrostomy status - Nephrostomy tube was exchanged on 04/29/2023 Stage IIIB SCC of the cervix - S/p Chemoradiation - Port-A-Cath in place - 02/26 CT A/P: 2.4 cm peripherally enhancing mass within the inferior central pelvis. Discussed with IR, it is the uterus with post-radiation changes. Therefore, no biopsy recommended. - 04/27 CT A/P in ER showed similar mass as prior scan. Left collecting system and proximal ureteralwall thickening concerning for pyelitis/ascending UTI. New concern for sacral insufficiency fractures. - Palliative was consulted for pain management, now signed off - Pain regimen: MS Contin 45 mg BID. Oxycodone 5 mg & 10 mg q4hrs PRN breakthrough, Gabapentin 300mg qHS. PRN IV 0.5mg Dilaudid. Tobacco use - Cessation materials available upon request - Anxiety Continue Mirtazapine and lorazepam TID Asthma - Not in acute exacerbation Decreased appetite, improving - Cancer related - Continue regular diet patient has been tolerating her meals Concern for sacral fracture - 6/25 CT with findings concerning for New serpiginous areas of sclerosis of both sacral ala, concerning for sacral insufficiency fractures - For DEXA scan outpatient Disposition: Patient with complicated urinary tract infection with nephrostomy tube in place, urine. Continue daptomycin and ciprofloxacin per ID recommendation. Patient to be discharged on these 2 antibiotics until 05/16/2023. Patient will have weekly blood work done and sent to Dr. Herrera everyMonday. Plan for discharge today. IV Abx can be given through patient's port. For DEXA scan outpatient considering new finding of possible sacral fracture. Digitally Signed by NOLAN MOODY MD on 05/07/2023 06:31 AM [facility] [id number] Note Date of Service 05/07/2023 Chief Complaint Complicated UTI , intractable pain Subjective No acute events overnight. Patient seen and examined. She is doing well, tolerating regular diet, ambulating, voiding. Pain is stable with pain medication. Denies chest pain, shortness of breath, fever, chills, night sweats. Objective Vitals and Measurements T: 36.8 C (Oral) TMIN: 36.6 C (Oral) TMAX: 37.1 C (Oral) HR: 81 RR: 16 BP: 109/74 SpO2: 99% Intake and Output 7AM Yesterday to 7AM Today Intake and Output (Last 24 hours) Intake Oral Intake 120.00 Output Urine Voided 0.00 Urostomy Output: 1200.00 Stool Count 0.00 Total Summary Total Intake 120.00 Total Output 1200.00 Fluid Balance -1080.00 Physical Exam General: A&O x3, no acute distress. Resting in bed. HEENT: normocephalic, atraumatic Cardio: Regular rate and rhythm Lungs: Breathing without difficulty, no use of accessory muscles. Clear breath sounds bilaterally. Gastrointestinal: Nondistended, soft, positive bowel sounds, mild suprapubic tenderness and bilateral lower quadrant tenderness. Genitourinary: left sided nephrostomy with yellow urine, skin site clean, dry and intact with dressing in place Extremities: Mild LE edema. Weight Dosing Weight: 63.9 kg (04/28/23) Dosing Weight: 63.9 kg (04/27/23) Medications Medications (15) Active Scheduled: (8) ciprofloxacin PMX 400 mg 200 mL, IV Piggyback, q12h DAPTOmycin 400 mg 8 mL, IV Piggyback, qDay gabapentin 300 mg Capsule 300 mg 1 cap(s), Oral, qHS mirtazapine 15 mg tablet 30 mg 2 tab(s), Oral, qDay morphine 30 mg ER tablet 60 mg 2 tab(s), Oral, q12h ondansetron 2 mg/ 1 mL 2 mL INJ 4 mg 2 mL, IV Push, q4h pantoprazole 40 mg VIAL 40 mg, IV Push, qDay senna 8.6 mg Tablet 17.2 mg 2 tab(s), Oral, qHS Continuous: (0) PRN: (7) docusate sodium 100 mg Capsule 100 mg 1 cap(s), Oral, BID HYDROmorphone 0.5 mg/0.5 mL PF syringe 0.5 mg 0.5 mL, IV Push, q3h LORAZEPam 1 mg Tablet 1 mg 1 tab(s), Oral, q8h ondansetron 4 mg tablet 4 mg 1 tab(s), Oral, q6h oxycodone 5 mg tablet (immediate release) 10 mg 2 tab(s), Oral, q4h oxycodone 5 mg tablet (immediate release) 15 mg 3 tab(s), Oral, q4h polyethylene glycol 3350 - UD packet 17 gram(s) 15 mL, Oral, BID Lab Results 05/07 05:08 WBC: 6.9 Hgb: 11.3 L Hct: 34.7 Platelet: 364 Neutrophil %: 48.2 L Glucose Level: 97 Sodium Level: 138 Potassium Level: 4.1 BUN: 15.0 Creatinine Lvl (s): 0.96 05/06 05:53 WBC: 5.5 Hgb: 11.7 L Hct: 35.8 Platelet: 389 Neutrophil %: 41.5 L Glucose Level: 115 H Sodium Level: 139 Potassium Level: 4.0 BUN: 14.0 Creatinine Lvl (s): 0.81 Assessment/Plan 1. Complicated UTI (urinary tract infection) 2. Bilateral flank pain 3. Nephrostomy status 4. Cervical cancer 5. Tobacco use 6. Anxiety 7. Asthma 8. Decreased appetite 9. Sacral lesion Patient is a 32 yo with history of Stage IIIB cervical cancer s/p chemoradiation currently in remission admitted for complicated urinary tract infection and Nephrostomy Tube exchange. Admit to regular floor Condition: Stable Vitals: q8hr Activity: Ambulate Diet: Regular IVF: HLIV Antibiotics: Daptomycin 6mg/kg IV, Cipro 500 BID PO Lines: Right port DVT Prophylaxis: SCDs Complicated UTI (urinary tract infection) - 02/23 urine culture showed ESBL, patient completed 4 weeks of ertapenem at that time - On admission patient presented with urinary retention. - Patient has been afebrile throughout her hospital stay, no leukocytosis - 04/27 UA positive for nitrites and large esterase - CT A/P 04/27: Subcentimeter cysts suspected in the left. Left collecting system and proximal ureteral wall thickening concerning for pyelitis/ascending UTI. no comment on right kidney kidney. There is mild wall thickening and enhancement of the left renal pelvis and proximal ureter. - 04/27 clean catch urine cultures NGTD. - Nephrostomy tube was exchanged on 04/29/2023 - 04/27 Nephrostomy urine culture positive for Klebsiella, Myroides, Enterococcus, Vagococcus. - Infectious disease consulted for antibiotic management due to complicated history of UTI, and multi-organism nephrostomy culture. Awaiting recommendations from ID. - S/P meropenem, Aztreonam per ID recommendation. -Continue daptomycin 6 mg/kg QD, and oral ciprofloxacin 400 mg twice daily which patient will be discharged to continue until 05/16/2023. ID recommends q. Friday CBC with differential, hepatic panel, renal panel and CPK - Abx an be given through patient's port which is already in place Nephrostomy status - Nephrostomy tube was exchanged on 04/29/2023 Stage IIIB SCC of the cervix - S/p Chemoradiation - Port-A-Cath in place - 02/26 CT A/P: 2.4 cm peripherally enhancing mass within the inferior central pelvis. Discussed with IR, it is the uterus with post-radiation changes. Therefore, no biopsy recommended. - 04/27 CT A/P in ER showed similar mass as prior scan. Left collecting system and proximal ureteralwall thickening concerning for pyelitis/ascending UTI. New concern for sacral insufficiency fractures. - Palliative was consulted for pain management, now signed off - Pain regimen: MS Contin 45 mg BID. Oxycodone 5 mg & 10 mg q4hrs PRN breakthrough, Gabapentin 300mg qHS. PRN IV 0.5mg Dilaudid. Tobacco use - Cessation materials available upon request - Anxiety Continue Mirtazapine and lorazepam TID Asthma - Not in acute exacerbation Decreased appetite, improving - Cancer related - Continue regular diet patient has been tolerating her meals Concern for sacral fracture - 04/27 CT with findings concerning for New serpiginous areas of sclerosis of both sacral ala, concerning for sacral insufficiency fractures - For DEXA scan outpatient Disposition: Patient with complicated urinary tract infection with nephrostomy tube in place, urine. Continue daptomycin and ciprofloxacin per ID recommendation. Patient to be discharged on these 2 antibiotics until 05/16/2023. Patient will have weekly blood work done and sent to Dr. Lyles. Plan for discharge today. IV Abx can be given through patient's port. For DEXA scan outpatient considering new finding of possible sacral fracture. Digitally Signed by NOLAN MOODY MD on 05/07/2023 06:31 AM [facility] [id number] Note Date of Service 05/06/2023 Chief Complaint Intractable pain Complicated UTI Subjective No acute events overnight. Patient seen and examined. She is doing well, tolerating regular diet, ambulating, voiding. Pain is stable with pain medication. Denies chest pain, shortness of breath, fever, chills, night sweats. Objective Vitals and Measurements T: 36.8 C (Oral) TMIN: 36.5 C (Oral) TMAX: 36.8 C (Oral) HR: 86 RR: 16 BP: 123/87 SpO2: 95% Intake and Output 7AM Yesterday to 7AM Today Intake and Output (Last 24 hours) Intake Oral Intake 120.00 Output Urine Voided 0.00 Urostomy Output: 1550.00 Stool Count 0.00 Total Summary Total Intake 120.00 Total Output 1550.00 Fluid Balance -1430.00 Physical Exam General: A&O x3, no acute distress. Resting in bed. HEENT: normocephalic, atraumatic Cardio: Regular rate and rhythm, S1/S2 heard Lungs: Breathing without difficulty, no use of accessory muscles. Clear breath sounds bilaterally. Gastrointestinal: Nondistended, soft, positive bowel sounds, mild suprapubic tenderness and left lower quadrant tenderness. Genitourinary: left sided nephrostomy with 200 yellow urine, skin site clean, dry and intact with dressing in place Extremities: scant LE edema. Weight Dosing Weight: 63.9 kg (04/28/23) Dosing Weight: 63.9 kg (04/27/23) Medications Medications (15) Active Scheduled: (8) ciprofloxacin PMX 400 mg 200 mL, IV Piggyback, q12h DAPTOmycin 400 mg 8 mL, IV Piggyback, qDay gabapentin 300 mg Capsule 300 mg 1 cap(s), Oral, qHS mirtazapine 15 mg tablet 30 mg 2 tab(s), Oral, qDay morphine 30 mg ER tablet 60 mg 2 tab(s), Oral, q12h ondansetron 2 mg/ 1 mL 2 mL INJ 4 mg 2 mL, IV Push, q4h pantoprazole 40 mg VIAL 40 mg, IV Push, qDay senna 8.6 mg Tablet 17.2 mg 2 tab(s), Oral, qHS Continuous: (0) PRN: (7) docusate sodium 100 mg Capsule 100 mg 1 cap(s), Oral, BID HYDROmorphone 0.5 mg/0.5 mL PF syringe 0.5 mg 0.5 mL, IV Push, q3h LORAZEPam 1 mg Tablet 1 mg 1 tab(s), Oral, q8h ondansetron 4 mg tablet 4 mg 1 tab(s), Oral, q6h oxycodone 5 mg tablet (immediate release) 10 mg 2 tab(s), Oral, q4h oxycodone 5 mg tablet (immediate release) 15 mg 3 tab(s), Oral, q4h polyethylene glycol 3350 - UD packet 17 gram(s) 15 mL, Oral, BID Lab Results 05/06 05:53 WBC: 5.5 Hgb: 11.7 L Hct: 35.8 Platelet: 389 Neutrophil %: 41.5 L Glucose Level: 115 H Sodium Level: 139 Potassium Level: 4.0 BUN: 14.0 Creatinine Lvl (s): 0.81 05/05 00:19 WBC: 5.6 Hgb: 12.8 Hct: 39.1 Platelet: 412 Neutrophil %: 40.1 L Glucose Level: 119 H Sodium Level: 138 Potassium Level: 4.0 BUN: 12.0 Creatinine Lvl (s): 0.77 Imaging Results and Diagnostics IR Nephrostomy Tube Change LT Guide Result Date: April 29, 2023 Verified By: MADELINE APARICIO MD CLINICAL STATEMENT: IMPRESSION: 1. Successful, uncomplicated nephroureteral drain tube change. Left toexternal drainageas patient is unable to void currently. After clinicalimprovement and return of bladder control, this catheter can be capped toliberate from external drain bag.2. Routine change in [address] Abd/Pelvis w/ IV Contrast Only Result Date: April 27, 2023 Verified By: TABITHA LORA, SHAHBAZ Metz CLINICAL STATEMENT: IMPRESSION: Left collecting system and proximal ureteral wall thickening and enhancementconcerning for pyelitis/ascending urinary tract infection. Heterogeneous mass or complex collection in the central pelvis with aneccentric area of hypodensity. The mass is difficult to compare to the priorstudy but is not significantly changed. Findings presumably relate tonecrotic neoplasm. Continued surveillance advised New serpiginous areas of sclerosis of both sacral ala, concerning for sacralinsufficiency fractures. Consider MRI follow-up. Other chronic and incidental findings as described above. I have personally reviewed the images of this examination and agree with theresident's findings and interpretation. EKG No qualifying data available. Assessment/Plan Patient is a 32 yo with history of Stage IIIB cervical cancer s/p chemoradiation currently in remission admitted for complicated urinary tract infection and Nephrostomy Tube exchange. Admit to regular floor Condition: Stable Vitals: q8hr Activity: Ambulate Diet: Regular IVF: HLIV Antibiotics: Daptomycin 6mg/kg IV, Cipro 500 BID PO Lines: Right port DVT Prophylaxis: SCDs Complicated UTI (urinary tract infection) - 02/23 urine culture showed ESBL, patient completed 4 weeks of ertapenem at that time - On admission patient presented with urinary retention. - Patient has been afebrile throughout her hospital stay, no leukocytosis - 04/27 UA positive for nitrites and large esterase - CT A/P 04/27: Subcentimeter cysts suspected in the left. Left collecting system and proximal ureteral wall thickening concerning for pyelitis/ascending UTI. no comment on right kidney kidney. There is mild wall thickening and enhancement of the left renal pelvis and proximal ureter. - 04/27 clean catch urine cultures NGTD. - Nephrostomy tube was exchanged on 04/29/2023 - 04/27 Nephrostomy urine culture positive for Klebsiella, Myroides, Enterococcus, Vagococcus. - Infectious disease consulted for antibiotic management due to complicated history of UTI, and multi-organism nephrostomy culture. Awaiting recommendations from ID. - S/P meropenem, Aztreonam per ID recommendation. -Continue daptomycin 6 mg/kg QD, and oral ciprofloxacin 400 mg twice daily which patient will be discharged to continue until 05/16/2023. ID recommends q. Friday CBC with differential, hepatic panel, renal panel and CPK -ID recommended midline placement however patient does have a right chest port will discuss tomorrow whether or not her antibiotics can be given through the port. Nephrostomy status - Nephrostomy tube was exchanged on 04/29/2023 Stage IIIB SCC of the cervix - S/p Chemoradiation - Port-A-Cath in place - 02/26 CT A/P: 2.4 cm peripherally enhancing mass within the inferior central pelvis. Discussed with IR, it is the uterus with post-radiation changes. Therefore, no biopsy recommended. - 04/27 CT A/P in ER showed similar mass as prior scan. Left collecting system and proximal ureteralwall thickening concerning for pyelitis/ascending UTI. New concern for sacral insufficiency fractures. - Palliative was consulted for pain management, now signed off - Pain regimen: MS Contin 45 mg BID. Oxycodone 5 mg & 10 mg q4hrs PRN breakthrough, Gabapentin 300mg qHS. PRN IV 0.5mg Dilaudid. Tobacco use - Cessation materials available upon request - Anxiety Continue Mirtazapine and lorazepam TID Asthma - Not in acute exacerbation Decreased appetite, improving - Cancer related - Continue regular diet patient has been tolerating her meals Concern for sacral fracture - 04/27 CT with findings concerning for New serpiginous areas of sclerosis of both sacral ala, concerning for sacral insufficiency fractures - For DEXA scan outpatient Disposition: Patient with complicated urinary tract infection with nephrostomy tube in place, urine. Continue daptomycin and ciprofloxacin per ID recommendation. Patient to be discharged on these 2 antibiotics until 05/16/2023. Patient will have weekly blood work done and sent to Dr. CondonFriday. Plan for discharge tomorrow after discussing using Port-A-Cath for IV antibiotics with infectious disease. For DEXA scan outpatient considering new finding of possible sacral fracture. Digitally Signed by PRIMO CANELA MD on 05/06/2023 10:36 AM Digitally Signed by CLOTILDE GARCIA MD [facility] [id number] Note Date of Service 05/05/23 Chief Complaint UTI Subjective Patient seen and examined. Patient tearful on questioning. She states that the pain meds that she is currently receiving are not helping her, also feels like the nurses are talking about her. She didget a dose of IV Dilaudid overnight, and she states that this was the only thing that helped her, but notes they were not on time. Would like to be transferred to S. Otherwise, she denies fevers, chills, chest pain, shortness of breath, tolerating p.o. intake without nausea or vomiting. She is voiding spontaneously. She passing bowel movements. Objective Vitals and Measurements T: 37.0 C (Oral) TMIN: 36.5 C (Oral) TMAX: 37.1 C (Oral) HR: 88 RR: 14 BP: 113/82 SpO2: 97% Intake and Output 7AM Yesterday to 7AM Today Intake and Output (Last 24 hours) Intake Oral Intake 200.00 Output Urine Voided 300.00 Urostomy Output: 2975.00 Total Summary Total Intake 200.00 Total Output 3275.00 Fluid Balance -3075.00 Physical Exam General: A&O x3, Tearful HEENT: normocephalic, atraumatic Cardio: Regular rate and rhythm, no murmurs rubs or gallops Lungs: Breathing without difficulty, no use of accessory muscles. Clear breath sounds bilaterally. Gastrointestinal: Nondistended, soft, positive bowel sounds, mild lower abdominal tenderness Genitourinary: left sided nephrostomy with scant urine, skin site clean, dry and intact with dressing in place Weight Dosing Weight: 63.9 kg (04/28/23) Dosing Weight: 63.9 kg (04/27/23) Medications Medications (18) Active Scheduled: (11) aztreonam 1 gram(s), IV Piggyback, q8h ciprofloxacin PMX 400 mg 200 mL, IV Piggyback, q12h gabapentin 300 mg Capsule 300 mg 1 cap(s), Oral, qHS mirtazapine 15 mg tablet 30 mg 2 tab(s), Oral, qDay morphine 15 mg ER tablet 45 mg 3 tab(s), Oral, q12h naproxen sodium 220 mg tablet 220 mg 1 tab(s), Oral, BID ondansetron 2 mg/ 1 mL 2 mL INJ 4 mg 2 mL, IV Push, q4h pantoprazole 40 mg VIAL 40 mg, IV Push, qDay senna 8.6 mg Tablet 17.2 mg 2 tab(s), Oral, qHS vancomycin PMX 1,000 mg 200 mL, IV Piggyback, q12h vancomycin trough level 1 EA, Miscellaneous, q12hr Continuous: (0) PRN: (7) docusate sodium 100 mg Capsule 100 mg 1 cap(s), Oral, BID HYDROmorphone 0.5 mg/0.5 mL PF syringe 0.5 mg 0.5 mL, IV Push, q3h LORAZEPam 1 mg Tablet 1 mg 1 tab(s), Oral, q8h ondansetron 4 mg tablet 4 mg 1 tab(s), Oral, q6h oxycodone 5 mg tablet (immediate release) 10 mg 2 tab(s), Oral, q4h oxycodone 5 mg tablet (immediate release) 15 mg 3 tab(s), Oral, q4h polyethylene glycol 3350 - UD packet 17 gram(s) 15 mL, Oral, BID Lab Results 05/04 05:06 WBC: 5.8 Hgb: 12.4 Hct: 38.0 Platelet: 410 Neutrophil %: 51.1 Glucose Level: 116 H Sodium Level: 139 Potassium Level: 4.1 BUN: 11.0 Creatinine Lvl (s): 0.78 Imaging Results and Diagnostics IR Nephrostomy Tube Change LT Guide Result Date: April 29, 2023 Verified By: MADELINE APARICIO MD CLINICAL STATEMENT: IMPRESSION: 1. Successful, uncomplicated nephroureteral drain tube change. Left toexternal drainageas patient is unable to void currently. After clinicalimprovement and return of bladder control, this catheter can be capped toliberate from external drain bag.2. Routine change in [address] Abd/Pelvis w/ IV Contrast Only Result Date: April 27, 2023 Verified By: SHAHBAZ DENNY MD CLINICAL STATEMENT: IMPRESSION: Left collecting system and proximal ureteral wall thickening and enhancementconcerning for pyelitis/ascending urinary tract infection. Heterogeneous mass or complex collection in the central pelvis with aneccentric area of hypodensity. The mass is difficult to compare to the priorstudy but is not significantly changed. Findings presumably relate tonecrotic neoplasm. Continued surveillance advised New serpiginous areas of sclerosis of both sacral ala, concerning for sacralinsufficiency fractures. Consider MRI follow-up. Other chronic and incidental findings as described above. I have personally reviewed the images of this examination and agree with theresident's findings and interpretation. Assessment/Plan Patient is a 32 yo with history of Stage IIIB cervical cancer s/p chemoradiation currently in remission admitted for complicated urinary tract infection and Nephrostomy Tube exchange. Condition: stable Vitals: q4hrs Diet: Regular IVFs: HLIV Activity: Up ad marisa DVT ppx: SCDs Complicated UTI (urinary tract infection) - VSS, AF - 02/23 urine culture showed ESBL, patient completed 4 weeks of ertapenem at that time - On admission patient presented with urinary retention. - 04/27 UA positive for nitrites and large esterase - CT A/P 04/27: Subcentimeter cysts suspected in the left. Left collecting system and proximal ureteral wall thickening concerning for pyelitis/ascending UTI. No comment on right kidney. There was mild wall thickening and enhancement of the left renal pelvis and proximal ureter. - 04/27 clean catch urine cultures NGTD. - 04/27 Nephrostomy urine culture positive for Klebsiella, Myroides, Enterococcus, Vagococcus. - Infectious disease consulted for antibiotic management due to complicated history of UTI, and multi-organism nephrostomy culture. - ID recommendations appreciated - Patient was transitioned from meropenem to Aztreonam, ciprofloxacin, vancomycin per ID recommendations. - Nephrostomy tube was exchanged on 04/29/2023, urine Cx on 05/02 shows NGTD Bilateral flank pain - She did endorse continued flank pain this morning - As above Nephrostomy status - Output 2975cc/24 hours, dressing clean dry and intact Cervical cancer - S/p Chemoradiation - Port-A-Cath in place - 02/26 CT A/P: 2.4 cm peripherally enhancing mass within the inferior central pelvis. Discussed with IR, it is the uterus with post-radiation changes. Therefore, no biopsy recommended. - 04/27 CT A/P in ER showed similar mass as prior scan. Left collecting system and proximal ureteralwall thickening concerning for pyelitis/ascending UTI. New concern for sacral insufficiency fractures. - Palliative was consulted for pain management - Pain regimen: MS Contin 45 mg BID Oxycodone 5 mg & 10 mg q4hrs PRN breakthrough, Gabapentin 300mg qHS. PRN IV 0.5mg Dilaudid ordered yesterday for patient. - Pain currently not well controlled - Asking for one time dose of Dilaudid to help with her pain. Tobacco use - Nicotine patches available per patient request Anxiety - Continue Mirtazapine and lorazepam TID - Stable Asthma - Stable, no meds Decreased appetite - Patient has been tolerating PO intake while admitted Sacral lesion - 04/27 CT with findings concerning for New serpiginous areas of sclerosis of both sacral ala, concerning for sacral insufficiency fractures - For DEXA scan outpatient Dispo: continue in patient management with IV antibiotics as above per ID recommendations. Palliative previously consulted for pain management. Will discuss further with Dr. Martin. Transfer to S Will discuss above plan with attending. Please see addendum for any changes/adjustments to the above noted plans. Digitally Signed by TIMO MENCHACA DO on 05/05/2023 06:48 AM [facility] [id number] Infectious disease Progress note Date of Service 05/05/2023 Objective Vitals and Measurements T: 36.6 C (Oral) TMIN: 36.5 C (Oral) TMAX: 37.0 C (Oral) HR: 84 RR: 18 BP: 125/92 SpO2: 98% No acute overnight events to report Physical Exam General Appearance: Patient is laying in the bed not in any apparent distress HEENT: Atraumatic normocephalic, EOMI Neck: Neck supple oral mucosa moist Cardiac: first and second heart sounds audible Lungs: Clear to auscultation bilaterally Abdomen: Soft nontender nondistended bowel sounds positive Musculoskeletal: Extremities: No lower extremity edema Neurological: Grossly non focal Skin: No rash LINES/TUBES/DRAINS: Right Chest Port dressing dry & intact, no drainage or erythema at site. Left Nephrostomy Tube with clear light yellow output noted. SGOT 25, SGPT 14 Vanco Trough 22.3 CURRENT ANTIBIOTICS: Meropenem 1g IV Q8h 04/18 - 05/03 Vanco 750mg IV Q12h 05/03 - present Cipro 400mg IV Q12h 05/03 - present Aztreonam 1g IV Q8h 05/03 - present CULTURE RESULTS/ANA LILIA: 02/23 Urine Culture -F 10,000 - 50,000 cfu/ml Escherichia coli ESBL 04/27 Urine Culture -F >100,000 cfu/ml Multiple bacterial morphotypes present Probable Contamination 04/27 Blood Cultures 12/05 no growth to date -F 04/27 Urine Culture -F >100,000 cfu/ml Klebsiella oxytoca Raoultella ornithinolytica >100,000 cfu/ml Myroides odoratimimus 10,000 - 50,000 cfu/ml Enterococcus faecalis 10,000 - 50,000 cfu/ml Vagococcus fluvialis 05/02 Urine Culture -F No growth at 48 hours 05/02 Urine Culture (nephrostomy) -F No growth at 48 hours Weight Dosing Weight: 63.9 kg (04/28/23) Dosing Weight: 63.9 kg (04/27/23) Medications Medications (17) Active Scheduled: (10) aztreonam 1 gram(s), IV Piggyback, q8h ciprofloxacin PMX 400 mg 200 mL, IV Piggyback, q12h gabapentin 300 mg Capsule 300 mg 1 cap(s), Oral, qHS mirtazapine 15 mg tablet 30 mg 2 tab(s), Oral, qDay morphine 15 mg ER tablet 45 mg 3 tab(s), Oral, q12h naproxen sodium 220 mg tablet 220 mg 1 tab(s), Oral, BID ondansetron 2 mg/ 1 mL 2 mL INJ 4 mg 2 mL, IV Push, q4h pantoprazole 40 mg VIAL 40 mg, IV Push, qDay senna 8.6 mg Tablet 17.2 mg 2 tab(s), Oral, qHS vancomycin PMX 750 mg 250 mL, IV Piggyback, q12h Continuous: (0) PRN: (7) docusate sodium 100 mg Capsule 100 mg 1 cap(s), Oral, BID HYDROmorphone 0.5 mg/0.5 mL PF syringe 0.5 mg 0.5 mL, IV Push, q3h LORAZEPam 1 mg Tablet 1 mg 1 tab(s), Oral, q8h ondansetron 4 mg tablet 4 mg 1 tab(s), Oral, q6h oxycodone 5 mg tablet (immediate release) 10 mg 2 tab(s), Oral, q4h oxycodone 5 mg tablet (immediate release) 15 mg 3 tab(s), Oral, q4h polyethylene glycol 3350 - UD packet 17 gram(s) 15 mL, Oral, BID Lab Results 05/05 00:19 WBC: 5.6 Hgb: 12.8 Hct: 39.1 Platelet: 412 Neutrophil %: 40.1 L Glucose Level: 119 H Sodium Level: 138 Potassium Level: 4.0 BUN: 12.0 Creatinine Lvl (s): 0.77 05/04 05:06 WBC: 5.8 Hgb: 12.4 Hct: 38.0 Platelet: 410 Neutrophil %: 51.1 Glucose Level: 116 H Sodium Level: 139 Potassium Level: 4.1 BUN: 11.0 Creatinine Lvl (s): 0.78 Imaging Results and Diagnostics IR Nephrostomy Tube Change LT Guide Result Date: April 29, 2023 Verified By: MADELINE APARICIO MD CLINICAL STATEMENT: IMPRESSION: 1. Successful, uncomplicated nephroureteral drain tube change. Left toexternal drainageas patient is unable to void currently. After clinicalimprovement and return of bladder control, this catheter can be capped toliberate from external drain bag.2. Routine change in [address] Abd/Pelvis w/ IV Contrast Only Result Date: April 27, 2023 Verified By: SHAHBAZ DENNY MD CLINICAL STATEMENT: IMPRESSION: Left collecting system and proximal ureteral wall thickening and enhancementconcerning for pyelitis/ascending urinary tract infection. Heterogeneous mass or complex collection in the central pelvis with aneccentric area of hypodensity. The mass is difficult to compare to the priorstudy but is not significantly changed. Findings presumably relate tonecrotic neoplasm. Continued surveillance advised New serpiginous areas of sclerosis of both sacral ala, concerning for sacralinsufficiency fractures. Consider MRI follow-up. Other chronic and incidental findings as described above. I have personally reviewed the images of this examination and agree with theresident's findings and interpretation. Problem List Stage III cervical cancer status post chemoradiation Complicated UTI Pelvic mass Left nephrostomy tube status, status post exchange on 04/29 Pyelitis Severe penicillin allergy 52-year-old female with allergies to penicillin and with stage III cervical cancer status post chemoradiation currently in remission and history of ESBL/E. coli/Enterococcus/Klebsiella pneumonia witha recentl admission for treatment of a E Coli UTI from 02/23-03/05 and was discharged home on 4 weeks of IV ertapenem. She is currently being managed for sepsis secondary to urinary tract infection in setting of left nephrostomy tube and pyelitis seen on imaging. She was also noted to have a heterogeneous mass/complex collection in the central pelvis with eccentric areas of hypointensity ?necrotic neoplasm and a new serpiginous areas of sclerosis of both sacral ala, concerning for sacral insufficiency fractures. Urine culture collected on 04/27 from old nephrostomy tube revealed Klebsiella oxytoca Raoultella ornithinolytica , Myroides odoratimimus, Enterococcus faecalis 10,000 and Vagococcus fluvialis. Underwent IR nephrostomy tube exchange on 04/29. Nephrostomy exchanged on 05/02 with repeat urine culture collected on 05/02 for nephrostomy tube no growth to date. Discontinue current antibiotic regiment and start patient on, and will be discharged on same, daptomycin 6 mg/kg IV and ciprofloxacillin 500 mg every 12 hourly PO with SOT being 04/05 0 and EOT being 05/16 treating as complicated UTI in setting of foreign body. Midline requested Please obtain CBC, differential, hepatic panel, renal panel and CPK every Friday and send results to fax number [phone] Ruvalcaba Please call Dr. Ruvalcaba's office for a follow-up appointment in 2 weeks, Phone number [phone]. Digitally Signed by Emili Clark RN on 05/05/2023 10:48 AM Digitally Signed by NATHAN BASILIO MD on 05/05/2023 02:48 PM [facility] [id number] Note Date of Service 05/05/23 Chief Complaint UTI Subjective Patient seen and examined. Patient tearful on questioning. She states that the pain meds that she is currently receiving are not helping her, also feels like the nurses are talking about her. She didget a dose of IV Dilaudid overnight, and she states that this was the only thing that helped her, but notes they were not on time. Would like to be transferred to . Otherwise, she denies fevers, chills, chest pain, shortness of breath, tolerating p.o. intake without nausea or vomiting. She is voiding spontaneously. She passing bowel movements. Objective Vitals and Measurements T: 37.0 C (Oral) TMIN: 36.5 C (Oral) TMAX: 37.1 C (Oral) HR: 88 RR: 14 BP: 113/82 SpO2: 97% Intake and Output 7AM Yesterday to 7AM Today Intake and Output (Last 24 hours) Intake Oral Intake 200.00 Output Urine Voided 300.00 Urostomy Output: 2975.00 Total Summary Total Intake 200.00 Total Output 3275.00 Fluid Balance -3075.00 Physical Exam General: A&O x3, Tearful HEENT: normocephalic, atraumatic Cardio: Regular rate and rhythm, no murmurs rubs or gallops Lungs: Breathing without difficulty, no use of accessory muscles. Clear breath sounds bilaterally. Gastrointestinal: Nondistended, soft, positive bowel sounds, mild lower abdominal tenderness Genitourinary: left sided nephrostomy with scant urine, skin site clean, dry and intact with dressing in place Weight Dosing Weight: 63.9 kg (04/28/23) Dosing Weight: 63.9 kg (04/27/23) Medications Medications (18) Active Scheduled: (11) aztreonam 1 gram(s), IV Piggyback, q8h ciprofloxacin PMX 400 mg 200 mL, IV Piggyback, q12h gabapentin 300 mg Capsule 300 mg 1 cap(s), Oral, qHS mirtazapine 15 mg tablet 30 mg 2 tab(s), Oral, qDay morphine 15 mg ER tablet 45 mg 3 tab(s), Oral, q12h naproxen sodium 220 mg tablet 220 mg 1 tab(s), Oral, BID ondansetron 2 mg/ 1 mL 2 mL INJ 4 mg 2 mL, IV Push, q4h pantoprazole 40 mg VIAL 40 mg, IV Push, qDay senna 8.6 mg Tablet 17.2 mg 2 tab(s), Oral, qHS vancomycin PMX 1,000 mg 200 mL, IV Piggyback, q12h vancomycin trough level 1 EA, Miscellaneous, q12hr Continuous: (0) PRN: (7) docusate sodium 100 mg Capsule 100 mg 1 cap(s), Oral, BID HYDROmorphone 0.5 mg/0.5 mL PF syringe 0.5 mg 0.5 mL, IV Push, q3h LORAZEPam 1 mg Tablet 1 mg 1 tab(s), Oral, q8h ondansetron 4 mg tablet 4 mg 1 tab(s), Oral, q6h oxycodone 5 mg tablet (immediate release) 10 mg 2 tab(s), Oral, q4h oxycodone 5 mg tablet (immediate release) 15 mg 3 tab(s), Oral, q4h polyethylene glycol 3350 - UD packet 17 gram(s) 15 mL, Oral, BID Lab Results 05/04 05:06 WBC: 5.8 Hgb: 12.4 Hct: 38.0 Platelet: 410 Neutrophil %: 51.1 Glucose Level: 116 H Sodium Level: 139 Potassium Level: 4.1 BUN: 11.0 Creatinine Lvl (s): 0.78 Imaging Results and Diagnostics IR Nephrostomy Tube Change LT Guide Result Date: April 29, 2023 Verified By: MADELINE APARICIO MD CLINICAL STATEMENT: IMPRESSION: 1. Successful, uncomplicated nephroureteral drain tube change. Left toexternal drainageas patient is unable to void currently. After clinicalimprovement and return of bladder control, this catheter can be capped toliberate from external drain bag.2. Routine change in [address] Abd/Pelvis w/ IV Contrast Only Result Date: April 27, 2023 Verified By: SHAHBAZ DENNY MD CLINICAL STATEMENT: IMPRESSION: Left collecting system and proximal ureteral wall thickening and enhancementconcerning for pyelitis/ascending urinary tract infection. Heterogeneous mass or complex collection in the central pelvis with aneccentric area of hypodensity. The mass is difficult to compare to the priorstudy but is not significantly changed. Findings presumably relate tonecrotic neoplasm. Continued surveillance advised New serpiginous areas of sclerosis of both sacral ala, concerning for sacralinsufficiency fractures. Consider MRI follow-up. Other chronic and incidental findings as described above. I have personally reviewed the images of this examination and agree with theresident's findings and interpretation. Assessment/Plan Patient is a 32 yo with history of Stage IIIB cervical cancer s/p chemoradiation currently in remission admitted for complicated urinary tract infection and Nephrostomy Tube exchange. Condition: stable Vitals: q4hrs Diet: Regular IVFs: HLIV Activity: Up ad marisa DVT ppx: SCDs Complicated UTI (urinary tract infection) - VSS, AF - 02/23 urine culture showed ESBL, patient completed 4 weeks of ertapenem at that time - On admission patient presented with urinary retention. - 04/27 UA positive for nitrites and large esterase - CT A/P 04/27: Subcentimeter cysts suspected in the left. Left collecting system and proximal ureteral wall thickening concerning for pyelitis/ascending UTI. No comment on right kidney. There was mild wall thickening and enhancement of the left renal pelvis and proximal ureter. - 04/27 clean catch urine cultures NGTD. - 04/27 Nephrostomy urine culture positive for Klebsiella, Myroides, Enterococcus, Vagococcus. - Infectious disease consulted for antibiotic management due to complicated history of UTI, and multi-organism nephrostomy culture. - ID recommendations appreciated - Patient was transitioned from meropenem to Aztreonam, ciprofloxacin, vancomycin per ID recommendations. - Nephrostomy tube was exchanged on 04/29/2023, urine Cx on 05/02 shows NGTD Bilateral flank pain - She did endorse continued flank pain this morning - As above Nephrostomy status - Output 2975cc/24 hours, dressing clean dry and intact Cervical cancer - S/p Chemoradiation - Port-A-Cath in place - 02/26 CT A/P: 2.4 cm peripherally enhancing mass within the inferior central pelvis. Discussed with IR, it is the uterus with post-radiation changes. Therefore, no biopsy recommended. - 04/27 CT A/P in ER showed similar mass as prior scan. Left collecting system and proximal ureteralwall thickening concerning for pyelitis/ascending UTI. New concern for sacral insufficiency fractures. - Palliative was consulted for pain management - Pain regimen: MS Contin 45 mg BID Oxycodone 5 mg & 10 mg q4hrs PRN breakthrough, Gabapentin 300mg qHS. PRN IV 0.5mg Dilaudid ordered yesterday for patient. - Pain currently not well controlled - Asking for one time dose of Dilaudid to help with her pain. Tobacco use - Nicotine patches available per patient request Anxiety - Continue Mirtazapine and lorazepam TID - Stable Asthma - Stable, no meds Decreased appetite - Patient has been tolerating PO intake while admitted Sacral lesion - 04/27 CT with findings concerning for New serpiginous areas of sclerosis of both sacral ala, concerning for sacral insufficiency fractures - For DEXA scan outpatient Dispo: continue in patient management with IV antibiotics as above per ID recommendations. Palliative previously consulted for pain management. Will discuss further with Dr. Martin. Transfer to Will discuss above plan with attending. Please see addendum for any changes/adjustments to the above noted plans. Digitally Signed by TIMO MENCHACA DO on 05/05/2023 06:48 AM [facility] [id number] Infectious disease Consult note Date of Service 05/03/2023 Reason for Consultation Complicated UTI-polymicrobial Referring Physician Dr. Martin History of Present Illness This is a 32 yo female with history of Stage III cervical cancer s/p chemoradiation currently in remission, presents to [place] emergency room for concern for UTI and flank pain. She has a known recurrent history of complicated urinary tract infection with ESBL/E. coli/Enterococcus/Klebsiella pneumonia. She was recently admitted for treatment of a E Coli UTI from 02/23-03/05 and was discharged home on 4 weeks of IV ertapenem. In the emergency room, the patient reported that she was unable to void for the past 9 days is having increased pelvic pressure and pain. In the emergency room, UA was concerning for UTI. CT scan of the abdomen pelvis with contrast revealed a left collecting system and proximal ureteral wall thickening and enhancement concerning for pyelitis/ascending UTI. There is a heterogeneous mass/complex collection in the central pelvis with eccentric areas of hypointensity. Findings could relate to necrotic neoplasm. New serpiginous areas of sclerosis of both sacralala, concerning for sacral insufficiency fractures. Urine culture collected on 04/27 with polymicrobial organisms, therefore, ID consultation has been placed for antimicrobial management. Discussed the case with MILITARY NURSE team yesterday, patient continues to note improvement so far on current antibiotic therapy with 3 attention and abdominal discomfort Review of Systems Urinary retention abdominal pain and bilateral flank pain and generalized fatigue, otherwise [id number] point review of system was recent fevers but not currently Physical Exam Vitals and Measurements T: 37.1 C (Oral) TMIN: 36.7 C (Oral) TMAX: 37.1 C (Oral) HR: 73 RR: 16 BP: 91/62 SpO2: 94% Weight Dosing Weight: 63.9 kg (04/28/23) Dosing Weight: 63.9 kg (04/27/23) General Appearance: Awake, alert, and oriented, comfortable in bed HEENT: Normocephaly. PERRL Port in the chest wall on the right side without erythema drainage or tenderness Neck: Normal without lymphadenopathy Cardiac: Heart regular rhythm Lungs: Clear Abdomen: Left nephrostomy tube in place, bilateral abdominal tenderness in lower quadrants and bilateral CVA areas tenderness Extremities:Warm without clubbing, cyanosis or edema. Neurological: No deficits Skin: Warm, dry, intact. No rashes Psychiatric: No abnormal behaviors or new changes Lab Results 05/03 03:25 WBC: 6.8 Hgb: 12.0 Hct: 36.8 Platelet: 408 Neutrophil %: 61.8 Glucose Level: 111 H Sodium Level: 140 Potassium Level: 4.3 BUN: 9.0 Creatinine Lvl (s): 0.75 05/02 03:59 WBC: 6.9 Hgb: 11.4 L Hct: 34.9 Platelet: 399 Neutrophil %: 56.9 Glucose Level: 102 Sodium Level: 141 Potassium Level: 4.3 BUN: 10.0 Creatinine Lvl (s): 0.89 Imaging Results and Diagnostics IR Nephrostomy Tube Change LT Guide Result Date: April 29, 2023 Verified By: MADELINE APARICIO MD CLINICAL STATEMENT: IMPRESSION: 1. Successful, uncomplicated nephroureteral drain tube change. Left toexternal drainageas patient is unable to void currently. After clinicalimprovement and return of bladder control, this catheter can be capped toliberate from external drain bag.2. Routine change in [address] Abd/Pelvis w/ IV Contrast Only Result Date: April 27, 2023 Verified By: SHAHBAZ DENNY MD CLINICAL STATEMENT: IMPRESSION: Left collecting system and proximal ureteral wall thickening and enhancementconcerning for pyelitis/ascending urinary tract infection. Heterogeneous mass or complex collection in the central pelvis with aneccentric area of hypodensity. The mass is difficult to compare to the priorstudy but is not significantly changed. Findings presumably relate tonecrotic neoplasm. Continued surveillance advised New serpiginous areas of sclerosis of both sacral ala, concerning for sacralinsufficiency fractures. Consider MRI follow-up. Other chronic and incidental findings as described above. I have personally reviewed the images of this examination and agree with theresident's findings and interpretation. Assessment/Plan 1. Complicated UTI (urinary tract infection) 2. Bilateral flank pain 3. Nephrostomy status 4. Cervical cancer 5. Tobacco use 6. Anxiety 7. Asthma 8. Decreased appetite 9. Sacral lesion Stage III cervical cancer status post chemoradiation Complicated UTI Pelvic mass Left nephrostomy tube status, status post exchange on 04/29 Pyelitis Severe penicillin allergy This is a 32 yo female with history of Stage III cervical cancer s/p chemoradiation currently in remission, presents to [place] emergency room for concern for UTI and flank pain. She has a known recurrent history of complicated urinary tract infection with ESBL/E. coli/Enterococcus/Klebsiella pneumonia. She was recently admitted for treatment of a E Coli UTI from 02/23-03/05 and was discharged home on 4 weeks of IV ertapenem. In the emergency room, the patient reported that she was unable to void for the past 9 days is having increased pelvic pressure and pain. In the emergency room, UA was concerning for UTI. CT scan of the abdomen pelvis with contrast revealed a left collecting system and proximal ureteral wall thickening and enhancement concerning for pyelitis/ascending UTI. There is a heterogeneous mass/complex collection in the central pelvis with eccentric areas of hypointensity. Findings could relate to necrotic neoplasm. New serpiginous areas of sclerosis of both sacralala, concerning for sacral insufficiency fractures. Urine culture collected on 04/27 with polymicrobial organisms, therefore, ID consultation has been placed for antimicrobial management. Patient has remained afebrile past 24 hours. No leukocytosis. Blood cultures show no growth to date Urine culture collected on 04/27 for nephrostomy tube revealed Klebsiella oxytoca Raoultella ornithinolytica , Myroides odoratimimus, Enterococcus faecalis 10,000 and Vagococcus fluvialis . It appearsthe patient did not have her nephrostomy tube changed since February 2023. Underwent IR nephrostomy tube exchange on 04/29. Repeat urine culture on collected on 05/02 for nephrostomy tube is pending The patient admitted to no improvement so far on current antibiotic therapy, admitted that her allergies to penicillin are severe, discussed at length the risk and benefits of adjusting antimicrobialtherapy and we agreed to proceed with alternative regimen with vancomycin, Cipro and aztreonam for now Other potentials could include desensitization to penicillin after the weekend but for now we will follow her response to treatment, discussed potential side effects of antibiotic therapy and she agreed to the plan Discussed with MILITARY NURSE team yesterday Thank you for this consultation, will follow medical course and microdata I was present for Brenda López LPN , and personally directed, all components of the patient's complete evaluation and management documented by the scribe today. I have personally examined the patient and reviewed all diagnostic data. I have reviewed all of this documentation by the scribe. It documents the history obtained, examination performed, diagnostic testing results compiled by him/her,and discharge information. Problem List/Past Medical History Ongoing Acute kidney injury Anxiety Asthma Bilateral flank pain Cervical cancer Complicated UTI (urinary tract infection) Decreased appetite Dehydration DVT prophylaxis History of chemotherapy History of radiation therapy Left flank pain Moderate protein-calorie malnutrition Nausea and vomiting Nephrostomy status Obstructive uropathy Port-A-Cath in place Premature menopause Pyelonephritis Historical Cervicitis Chronic kidney disease, stage 3 (moderate) Encounter for antineoplastic chemotherapy ESBL (extended spectrum beta-lactamase) producing bacteria infection History of COVID-19 Hydronephrosis of left kidney Mass of cervix Tinnitus Procedure/Surgical History Nephrostomy with tube drainage: 01/10/21 JJ stent: 11/15/20 Radiation: 06/2020 Cervical biopsy: 2019 Tumor cells, benign: 2001 Nephrostomy with tube drainage Medications Inpatient Colace, 100 mg= 1 cap(s), Oral, BID, PRN gabapentin, 300 mg= 1 cap(s), Oral, qHS lidocaine 1% preservative-free injectable solution, 2.5 mg= 0.25 mL, Intradermal, prep pharm lidocaine 1% preservative-free injectable solution, 2.5 mg= 0.25 mL, Intradermal, prep pharm LORazepam, 1 mg= 1 tab(s), Oral, q8h Merrem Miralax Powder Packet, 17 gram(s)= 15 mL, Oral, BID, PRN mirtazapine, 30 mg= 2 tab(s), Oral, qDay MS Contin, 45 mg= 3 tab(s), Oral, q8h naproxen sodium 220 mg oral tablet, 220 mg= 1 tab(s), Oral, BID ondansetron, 4 mg= 1 tab(s), Oral, q6h, PRN oxyCODONE 5 mg oral tablet ( IMMEDIATE release ), 10 mg= 2 tab(s), Oral, q4h, PRN oxyCODONE 5 mg oral tablet ( IMMEDIATE release ), 15 mg= 3 tab(s), Oral, q4h, PRN Protonix IV Push, 40 mg, IV Push, qDay senna, 17.2 mg= 2 tab(s), Oral, qHS Zofran, 4 mg= 2 mL, IV Push, q4h Home gabapentin 300 mg oral capsule, 300 mg= 1 cap(s), Oral, qHS LORazepam 1 mg oral tablet, 1 mg= 1 tab(s), Oral, q8h mirtazapine 15 mg oral tablet, 15 mg= 1 tab(s), Oral, qDay morphine 30 mg/8 to 12 hr oral tablet, extended release, 30 mg= 1 tab(s), Oral, q12h ondansetron 4 mg oral tablet, 4 mg= 1 tab(s), Oral, q6h, PRN oxyCODONE 10 mg oral tablet ( IMMEDIATE release ), 10 mg= 1 tab(s), Oral, q4h, PRN Allergies Oranges penicillin Social History Alcohol - Denies Alcohol Use, 06/13/2020 Use: Current. Type: Beer. Frequency: 1-2 times per week., 12/21/2021 Home/Environment - No Risk, 06/13/2020 Domestic Concerns: None. Living situation: Home/Independent. Safe place to go: Yes. Lives In: Mobile home, 1st floor bedroom, 1st floor bathroom. Current Home Treatments None. Professional Skilled Services or Special Community Resources None. Financial concerns: No. Marital Status: Unmarried., 06/13/2020 Nutrition/Health - No Risk, 06/13/2020 Type of diet: Regular. Appetite Fair. Eating Difficulties None. Caffeine intake amount: 1 can pop per day., 06/13/2020 Sexual Sexually active: Yes. First active at age: 18 Years. Current partners: 1. Number of lifetime partners: 7. Self described orientation: Straight or heterosexual. Other contraceptive use: condoms. History of sexual abuse: No. Gender Identity: Identifies as female., 04/12/2020 Substance Abuse - Denies Substance Abuse, 06/13/2020 Use: Never., 04/12/2020 Tobacco Nicotine Use: 5-9 cigarettes (between 1/4 to 1/2 pack)/day in last 30 days. Type: Cigarettes. Tobacco use per day: 10. Number of years: 10. Started at age: 19 Years. Previous treatment: None. Ready to change: Yes., 04/12/2020 Family History Alcohol abuse: Father. Asthma: Mother. Bladder cancer: Negative: Mother, Father, Sister, Brother, Daughter, Son and Grandparent. Breast cancer: Mother. COPD - Chronic obstructive pulmonary disease: Mother. Cancer: Sister. Diabetes: Grandparent. Heart attack: Mother. Heart disease: Mother. Hypertension: Mother. Kidney stone: Mother. Renal cancer: Negative: Mother, Father, Sister, Brother, Daughter, Son and Grandparent. Stroke: Father and Grandparent. Substance abuse: Father. Immunizations hepatitis B pediatric vaccine: 0 unknown unit (06/16/01) hepatitis B pediatric vaccine: 0 unknown unit (06/21/98) measles/mumps/rubella virus vaccine: 0 unknown unit (06/16/01) Digitally Signed by Brenda López Scribe on 05/03/2023 09:45 AM Digitally Signed by MARGOTH RUVALCABA BA, MD on 05/03/2023 10:12 AM [id number] Palliative care Progress note Date of Service 05/01/2023 Code Status Code Status - Ordered -- 04/27/23 22:26:00 EDT, Full Code, Constant Order Chief Complaint Left flank and abdominal pain History of Present Illness Currently patient lying in bed sleeping, arouses easily and is in no acute distress. Patient does verbalize some pain improvement, however she still is requiring IV breakthrough medication. Educationprovided to patient on requesting her as needed oral pain medication at appropriate times before the pain is too severe and it then feels like she is chasing her pain without much relief. Patient verbalized understanding with this education. Patient denies cardiac related chest pain, shortness of breath, vomiting, bowel difficulties. States she was able to urinate yesterday, last BM on Friday. Verbalizes nausea is also improving last emesis 2 days ago Medications Medications (14) Active Scheduled: (9) gabapentin 300 mg Capsule 300 mg 1 cap(s), Oral, qHS LORAZEPam 1 mg Tablet 1 mg 1 tab(s), Oral, q8h meropenem 1,000 mg, IV Piggyback, q8h mirtazapine 15 mg tablet 30 mg 2 tab(s), Oral, qDay morphine 15 mg ER tablet 45 mg 3 tab(s), Oral, q8h naproxen sodium 220 mg tablet 220 mg 1 tab(s), Oral, BID ondansetron 2 mg/ 1 mL 2 mL INJ 4 mg 2 mL, IV Push, q4h pantoprazole 40 mg VIAL 40 mg, IV Push, qDay senna 8.6 mg Tablet 17.2 mg 2 tab(s), Oral, qHS Continuous: (0) PRN: (5) HYDROmorphone 0.5 mg/0.5 mL PF syringe 0.5 mg 0.5 mL, IV Push, q2h hydromorphone 1 mg/mL (1mL) INJ 1 mg 1 mL, IV Push, q2h ondansetron 4 mg tablet 4 mg 1 tab(s), Oral, q6h oxycodone 5 mg tablet (immediate release) 10 mg 2 tab(s), Oral, q4h polyethylene glycol 3350 - UD packet 17 gram(s) 15 mL, Oral, BID Physical Exam General: Young female, in no acute distress Neurologic: Alert and oriented x3, speech clear Heart: Heart regular, no murmur, no edema Lungs: Clear bilaterally, easy and regular Abdomen: Soft, nondistended, mild discomfort with palpation to bilateral lower quadrants (baseline), bowel sounds present Psychiatric: Cooperative, not agitated : Left nephrostomy tube with yellow urine Vitals and Measurements T: 36.8 C (Oral) TMIN: 36.8 C (Oral) TMAX: 37.0 C (Oral) HR: 73 RR: 18 BP: 116/77 SpO2: 93% Weight Dosing Weight: 63.9 kg (04/28/23) Dosing Weight: 63.9 kg (04/27/23) Time Spent [address] Sawyer Labs 05/01 04:09 WBC: 6.2 Hgb: 11.3 L Hct: 33.4 L Platelet: 366 Neutrophil %: 55.8 Glucose Level: 94 Sodium Level: 143 Potassium Level: 4.4 BUN: 11.0 Creatinine Lvl (s): 0.87 04/30 04:48 WBC: 9.4 Hgb: 11.2 L Hct: 34.0 Platelet: 386 Neutrophil %: 65.2 Glucose Level: 98 Sodium Level: 139 Potassium Level: 3.9 BUN: 6.0 L Creatinine Lvl (s): 0.79 Assessment/Plan 1. Encounter for palliative care Patient is a 32-year-old female with past medical history of stage IIIb cervical cancer (status post chemoradiation, currently in remission), hydronephrosis (left nephrostomy tube since 2019), frequent UTIs. Patient noted with multiple readmissions. Last admission on 02/23/2023 for a worsening abdominal and back pains. [facility] with similar symptoms of abdominal pain and flank pain. Patient is status post nephro tube exchange, continues on antibiotic for UTI.Patient continues with uncontrolled cancer related pain, palliative care consulted for pain management. Goals of care: Continues to receive goal congruent care. Patient states plan is for outpatient evaluation at [facility]. Palliative care consulted for symptom management, patient verbalizes pain is improving Next of kin: Patient's parents are . Patient has no children, she is not . She has 1biological sister, Zandra. She has stepdad who remains supportive and involved in her life. Per [place] revised code in the event she is unable to make medical decisions for herself, medical decision making would fall to patient's next of kin which would be her Sister Zandra. Patient verbalizes understanding and states she is comfortable with Zandra making decisions in the event she is unable to. CODE STATUS: Full code 2. Stage IIIb cervical cancer, currently in remission Management per primary team, patient verbalizes a possible [facility] referral, patient states she would be interested in pursuing this recommendation. 3. Cancer related pain (04/30/2023) reviewed OARRS report for this patient for refill pattern and other prescriber involvement as part of the appropriate surveillance for the provision of acute and chronic controlled medications. The report was requested and reviewed on the date of this entry, and was considered in the prescribing process. Based on patient's description of pain, and review of medication utilization at home. Recommendations as follows: Continue MS Contin to 45 mg 3 times daily Continue oxycodone 10 mg every 4 as needed for pain of 4-6, added oxycodone 15 mg every 4 hours as needed for pain of 7-10. Patient educated on recommended as needed breakthrough pain medication, andto request medication to avoid chasing her pain. IV Dilaudid has been discontinued Continue naproxen 220 mg twice daily to assist with inflammatory/spasmodic pain. The above changes was discussed with patient, who verbalized understanding and is agreement with plan Updated bedside nurse of plan of care for symptom management 4. Complicated UTI Management per primary team 5. Left hydronephrosis Chronic nephrostomy tube since 2019, exchanged this hospitalization Management per primary team 6. Hypoalbuminemia serum albumin noted to be 2.8. 7. Anxiety Lorazepam 1 mg 3 times daily for anxiety. Patient verbalizes anxiety is well controlled Patient also utilizes Remeron, currently increased to 30 mg nightly 8. Slow transit constipation Patient having regular bowel movements at present. Medication review noted that she is declining scheduled MiraLAX. With opioid use and is encouraged to still have a daily bowel regimen plan in place. Educated patient on constipation prevention while on opioid therapy Continue MiraLAX 17 g twice daily to as needed Continue senna 17.2 mg nightly Per patient request Colace 100 mg twice daily as needed for constipation was added Review of labs, progress notes, and diagnostics At this time palliative care will sign off. Please reconsult if further assistance is needed Recommendations discussed with my collaborating physician Dr. Sawyer , as well as primary team. Digitally Signed by NUBIA POWERS on 05/01/2023 10:55 AM [facility] [id number] Note IR Procedure Record Summary Primary Physician: MADELINE APARICIO MD Finalized Date/Time: 05/01/23 09:20:17 Pt. Name: ANTONELALLALY /Sex: 1990 Female Med Rec #: [id number] Physician: FLIP MARTIN MD Financial #: [id number] Pt. Type: I Room/Bed: [facility]/A Admit/Disch: 04/27/23 16:03:09 - Institution: Allergies identified in patient's electronic medical record at time of printing on 05/01/23 Entry 1 Entry 2 Substance Oranges penicillin Reaction Type Allergy Allergy Last Modified By: JAMAL Scott RN Evan 02/03/21 10/04/22 08:25:47 17:13:24 Case Attendance- IR Entry 1 Entry 2 Entry 3 Case Attendee MADELINE APARICIO MD, Colten G Herrick, Rad Tech Kelli L Role Performed Primary Surgeon Circulating Technologist Scrub Technologist Details Time In 04/29/23 09:36:00 04/29/23 09:25:00 04/29/23 09:25:00 Time Out 04/29/23 10:35:00 04/29/23 10:35:00 04/29/23 10:35:00 Procedure/Preference IR Nephrostomy Tube IR Nephrostomy Tube IR Nephrostomy Tube Card Change Lt Guide SN Change Lt Guide SN Change Lt Guide SN Last Modified By: Waldemar Winters RN Melanie Justice, Colten G 04/29/23 10:38:09 S 04/29/23 13:59:02 04/29/23 10:38:09 Entry 4 Entry 5 Case Attendee Sam Henry, JAMAL Piper Role Performed Western Philosophy Professor 1 Procedure Nurse Details Time In 04/29/23 09:25:00 04/29/23 09:25:00 Time Out 04/29/23 10:35:00 04/29/23 10:35:00 Procedure/Preference IR Nephrostomy Tube IR Nephrostomy Tube Card Change Lt Guide SN Change Lt Guide SN Last Modified By: Waldemar Winters Colten G 04/29/23 10:38:09 04/29/23 10:38:09 Radiology Procedures- IR Entry 1 Procedure/Preference IR Nephrostomy Tube Actual Procedure IR Nephrosotomy Tube Card Change Lt Guide SN Change LT Primary Procedure Yes Primary Surgeon MADELINE APARICIO MD Anesthesia/Sedation IV Sedation, Local Type Additional Procedure Times Start 04/29/23 09:36:00 Stop 04/29/23 10:27:00 Specialty Service SN Radiology Procedure EBL 0 mL Last Modified By: JAMAL Harding 04/29/23 13:59:22 Radiology Procedure Details - IR Entry 1 Radiology Sedation Case Times Sedation Start Time 04/29/23 09:35:00 Sedation Stop Time 04/29/23 10:27:00 Sedation Total Time 50mins Radiology - Fluid/Drainage Radiology Contrast Contrast Used? Yes Dose 10 mL Medication OMNIPAQUE 300 50ML 10/PK Y-530 [facility] [id number] Radiology Flouroscopy Fluoroscopy Used? Yes Fluoro Dose (mGy) 54.12 Fluoro Time 3.1mins Radiology Local Local Used? Yes Local Type: lidocaine 2% Local Dose 10cc Radiology Procedure Site Site/Location Lt side back Site Condition No complications Suture 0 Prolene Dressing Type Gauze sponge 4 X 4, Tagaderm Technologist Notes [id number] [place] Nephroureterostomy Stent inserted on the LT side Last Modified By: JAMAL Harding 04/29/23 15:12:15 General Case Data - IR Entry 1 Case Information Room IR 17 Case Level IR Level 2 Wound Class None Specialty SN Radiology Procedure ASA Class 3 Diagnosis Preop Diagnosis UTI, Intractable pain Postop Same As Preop Yes Postop Diagnosis UTI, Intractable pain Last Modified By: JAMAL Harding 04/29/23 13:59:14 Medication Administration- IR Entry 1 Entry 2 Entry 3 Medication versed benadryl versed Time Administered 04/29/23 09:37:00 04/29/23 09:37:00 04/29/23 09:42:00 Route of Admin IV Push IV Push IV Push Dose 2mg 50mg 1mg Volume VORB * *Verbal Order Read Back (VORB) is required for NON- PHYSICIAN administration of medications. Administered by No No No Physician? Administered by: JAMLA Feliciano RN Corey Snider, RN Corey Verbal Order Read MADELINE APARICIO MD, MITRYAN MD KAR, MADELINE LORA Back from: Last Modified By: JAMAL Feliciano RN Corey Snider, RN Corey 04/29/23 10:13:47 04/29/23 10:13:47 04/29/23 10:13:47 Entry 4 Entry 5 Entry 6 Medication fentanyl versed fentanyl Time Administered 04/29/23 09:42:00 04/29/23 09:47:00 04/29/23 09:47:00 Route of Admin IV Push IV Push IV Push Dose 25mcg 1mg 25mcg Volume VORB * *Verbal Order Read Back (VORB) is required for NON- PHYSICIAN administration of medications. Administered by No No No Physician? Administered by: JAMAL Feliciano RN Corey Snider, RN Corey Verbal Order Read MADELINE APARICIO MD, MITRYAN MD KAR, MADELINE LORA Back from: Last Modified By: JAMAL Feliciano RN Corey Snider, RN Corey 04/29/23 10:13:47 04/29/23 10:13:47 04/29/23 10:13:47 Entry 7 Entry 8 Entry 9 Medication versed fentanyl haloperidol Time Administered 04/29/23 09:52:00 04/29/23 09:52:00 04/29/23 09:52:00 Route of Admin IV Push IV Push IV Push Dose 1mg 25mcg 2mg Volume VORB * *Verbal Order Read Back (VORB) is required for NON- PHYSICIAN administration of medications. Administered by No No No Physician? Administered by: JAMAL Feliciano RN Corey Snider, RN Corey Verbal Order Read MADELINE APARICIO MD, MADELINE APARICIO, MADELINE LORA Back from: Last Modified By: JAMAL Feliciano RN Corey Snider, RN Corey 04/29/23 10:13:47 04/29/23 10:13:47 04/29/23 10:13:47 Entry 10 Entry 11 Entry 12 Medication versed dilaudid versed Time Administered 04/29/23 10:02:00 04/29/23 10:02:00 04/29/23 10:11:00 Route of Admin IV Push IV Push IV Push Dose 1mg 1mg 1mg Volume VORB * *Verbal Order Read Back (VORB) is required for NON- PHYSICIAN administration of medications. Administered by No No No Physician? Administered by: JAMAL Feliciano RN Corey Snider, JAMAL Whitehead Verbal Order Read MADELINE APARICIO MD, MADELINE APARICIO, MADELINE LORA Back from: Last Modified By: JAMAL Feliciano RN Corey Snider, RN Corey 04/29/23 10:13:47 04/29/23 10:20:24 04/29/23 10:13:47 Entry 13 Medication fentanyl Time Administered 04/29/23 10:11:00 Route of Admin IV Push Dose 25mcg Volume VORB * *Verbal Order Read Back (VORB) is required for NON- PHYSICIAN administration of medications. Administered by No Physician? Administered by: JAMAL Feliciano Verbal Order Read MADELINE APARICIO MD Back from: Last Modified By: JAMAL Feliciano 04/29/23 10:13:47 Procedure Case Times- IR Entry 1 Patient In Procedure Patient In OR 04/29/23 09:25:00 Patient Out of OR 04/29/23 10:35:00 Procedure Start/Stop Procedure Start Time 04/29/23 09:36:00 Procedure Stop Time 04/29/23 10:27:00 Last Modified By: JAMAL Harding 04/29/23 13:59:09 Immediate Post Procedure Note - IR Entry 1 Immediate Post Yes Findings 8.5Fx24 cm LT change Procedure Note displayed for Physician to review Closure Technique Closure Technique Other than Primary Last Modified By: Waldemar Winters 04/29/23 10:28:14 Immediate Post Procedure Note - IR Signed By: MADELINE APARICIO MD 04/29/23 10:27 Allergy Information- IR Entry 1 Allergies Reviewed? Yes Allergies Reviewed Patient With Last Modified By: Waldemar Winters 04/29/23 09:39:16 Radiology Protocols/Time Out- IR Entry 1 Preprocedure Clinician Verifies Correct patient ID When Clinically Consent for using name & date Indicated Administration of or MRN, Accurate Blood, Confirmation of procedure, complete correct side(s) and Informed Consent, H & P site(s), Correct update immediately diagnostic and prior to procedure, if radiology tests applicable available, Required blood products, implants, devices and/or special equipment available OR/Procedure Room/Bedside Time 04/29/23 09:36:00 Clinician Verifies Correct patient identity including EMR & records using name and date or medical record number, Accurate procedure consent form, Correct patient position, Necessary equipment is available, Anticipated non-routine events with surgical team (case duration, estimated blood loss, patient specific concerns). When Applicable Consent for Team Members JAMAL Feliciano, Administration of Present for Time Out Sam Henry Blood, Confirmation MARKUS Hensley MITRYAN correct side and site Singh LORA Colten G, marked, Relevant images Sam Granger and results are L properly labeled and appropriately displayed, Alcohol based prep dry Instrument Sterility Team Members Sam Granger Verifying Sterility L Procedure IR Nephrostomy Tube Change Lt Guide SN Last Modified By: JAMAL Feliciano 04/29/23 10:19:17 Skin Prep- IR Entry 1 Procedure IR Nephrostomy Tube Change Lt Guide SN Skin Prep Prep Area Back Side Left By Sam Granger Prep Agents Chloraprep L Hair Removal Method N/A Last Modified By: Waldemar Winters 04/29/23 09:44:22 Patient Positioning- IR Entry 1 Procedure IR Nephrostomy Tube Body Position OP Prone Change Lt Guide SN Feet Uncrossed? n/a Pressure Points n/a Checked Last Modified By: Waldemar Winters 04/29/23 09:44:43 Radiology Procedure Plan - IR Entry 1 Radiology - Nursing Care Plan Outcome Statement The patient Outcome Statement The patient receives demonstrates knowledge Cont. appropriate of the expected medication(s), safely responses to the administered during the operative/invasive perioperative/invasive procedure., The period., The patient is patient's value system, free from signs and lifestyle, ethnicity, symptoms of injury and culture are caused by extraneous considered, respected, objects (equipment, and incorporated in the instrumentation, perioperative plan of sponges, or sharps). care., The patient is free from signs and symptoms of infection., The patient is free from signs and symptoms of injury related to positioning. Radiology - Action Plan Outcomes Met? Yes Mottler Operator JAMAL Feliciano Completing Procedure Plan Last Modified By: JAMAL Feliciano 04/29/23 10:19:46 Case Comments Finalized By: Karolina Prater Document Signatures Signed By: JAMAL Harding 04/29/23 13:59 JAMAL Harding 04/29/23 15:12 Karolina Prater 04/29/23 15:28 Waldemar Winters 04/29/23 10:38 Waldemar Winters 04/29/23 10:39 Waldemar Winters 04/29/23 10:39 Sam Granger 04/29/23 10:42 Waldemar Winters 04/29/23 10:38 Karolina Prater 04/29/23 13:16 Karolina Prater 04/29/23 13:17 Karolina Prater 04/29/23 13:17 JAMAL Harding 04/29/23 13:53 JAMAL Harding 04/29/23 13:56 JAMAL Harding 04/29/23 13:59 Karolina Prater 05/01/23 09:20 [id number] Note ORIGINAL HISTORY: ORDERING SYSTEM PROVIDED HISTORY: Reason for Exam: Patient with UTI and nephrostomy tube not replaced since 02/17 COMPARISON: CT 04/27/23; last change 02/17/23 PROCEDURE: 1. Nephroureteral drain tube exchange under fluoroscopy LATERALITY: Left HUMAN RESOURCES DIRECTOR: Dr. Aparicio CHAIR TRIMMER: None The procedure, risks, and alternatives, were discussed and all questions were answered. Informed consent obtained. Maximal sterile barrier technique, hand hygiene, skin prep, and sterile ultrasound techniques (if used) utilized. Percutaneous site was sterilely prepped and draped. Time out performed. Sausage Stuffer image demonstrates stable appearance of the nephroureteral drainage tube. Contrast injection through the catheter demonstrates no hydronephrosis. There is good flow of contrast through the tube into the bladder. Local anesthesia administered. After cutting the hub, the old catheter was exchanged for a new one and the distal loop formed in the renal pelvis, confirmed with contrast injection. The string was removed in its entirety. Catheter was stitched to the skin. Sterile dressing applied. Left to external drainage as patient states she is unable to void just until the night prior. COMPLICATIONS: None EBL: Minimal CONDITION: Stable, unchanged MATERIALS: 8.5Fr x 24 cm Cozy NU catheter Amplatz ANESTHESIA: Moderate sedation was administered and monitored by dedicated nursing personnel under direct supervision by the cable operator. SEDATION TIME (min): 50 FLUORO (min): 3.1 AIR KERMA DOSE (mGy): 54 CONTRAST: Documented in Surginet. IMPRESSION: 1. Successful, uncomplicated nephroureteral drain tube change. Left to external drainage as patient is unable to void currently. After clinical improvement and return of bladder control, this catheter can be capped to liberate from external drain bag. 2. Routine change in 6 weeks suggested. Interpreted by: Madeline Aparicio MD Preliminary Report By: Madeline Aparicio MD Electronically signed By Madeline Aparicio MD Dictated Date: 04/30/2023 3:17:03 PM Prelim Date: 04/30/2023 3:21:11 PM Sign Date: 04/30/2023 3:21:11 PM Ordering Provider: SYBIL [facility]06-28-2023 Note Nephrostomy site with gauze & transparent dressing, no complications. Bag with yellow urine noted. Digitally Signed by JAMAL Phipps on 04/30/2023 02:47 PM [address]28-2023 Palliative care Consult note Date of Service 04/30/2023 Reason for Consult Pain management Referring physician: Dr. Coretta Sotelo Chief complaint: Left flank pain and abdominal pain History of Present Illness Patient is a 32-year-old female with past medical history of stage IIIb cervical cancer (status post chemoradiation, currently in remission), hydronephrosis (left nephrostomy tube since 2019), frequent UTIs. Patient noted with multiple readmissions. Last admission on 02/23/2023 for a worsening abdominal and back pains. [facility] with similar symptoms of abdominal pain and flank pain. Patient is status post nephro tube exchange, continues on antibiotic for UTI.Patient continues with uncontrolled cancer related pain, palliative care consulted for pain management. Currently patient is lying in bed, appears to be in no acute distress. Patient continues with nausea, states last episode of emesis was yesterday of bile consistency. Patient verbalizes she continueswith uncontrolled left flank and bilateral lower quadrant abdominal pain. Describes pain in these areas constant pressure also with stabbing pains. Pain is currently rated as an 8, patient states a tolerable pain level for her is a 4. Patient states she is realistic that she will not be pain-free. Patient denies cardiac related chest pain, shortness of breath, or bowel difficulties. Review of Systems Pertinent positives as per HPI. Other systems reviewed are negative. Physical Exam Vitals and Measurements T: 37.0 C (Oral) TMIN: 36.6 C (Oral) TMAX: 37.1 C (Oral) HR: 90(Apical) RR: 18 BP: 113/78 SpO2: 97% Weight Dosing Weight: 63.9 kg (04/28/23) Dosing Weight: 63.9 kg (04/27/23) General: Young female A/O x3. Appears comfortable, in NAD. HEENT: NC/AT. Sclera anicteric, conjunctivae pink. Oral mucosa moist. Heart: REG S1S2, no murmur. No peripheral edema. Lungs: CTA both A/P. Normal respiratory effort. Abdomen: Soft, tender with mild palpation bilateral lower quadrants, non- distended, BSPx4. Neurologic: Speech clear, memory intact, EDMONDS equally. Skin: Mildly pale warm and dry. Normal texture and turgor. Psychiatric: Calm, interactive, and appropriate. : Left nephrostomy tube noted, clear yellow urine Lab Results 04/30 04:48 WBC: 9.4 Hgb: 11.2 L Hct: 34.0 Platelet: 386 Neutrophil %: 65.2 Glucose Level: 98 Sodium Level: 139 Potassium Level: 3.9 BUN: 6.0 L Creatinine Lvl (s): 0.79 04/29 04:06 WBC: 7.3 Hgb: 11.1 L Hct: 33.5 L Platelet: 378 Neutrophil %: 59.1 Glucose Level: 99 Sodium Level: 139 Potassium Level: 3.9 BUN: 8.0 Creatinine Lvl (s): 0.82 Imaging Results and Diagnostics CT Abd/Pelvis w/ IV Contrast Only Result Date: April 27, 2023 Verified By: SHAHBAZ DENNY MD CLINICAL STATEMENT: IMPRESSION: Left collecting system and proximal ureteral wall thickening and enhancementconcerning for pyelitis/ascending urinary tract infection. Heterogeneous mass or complex collection in the central pelvis with aneccentric area of hypodensity. The mass is difficult to compare to the priorstudy but is not significantly changed. Findings presumably relate tonecrotic neoplasm. Continued surveillance advised New serpiginous areas of sclerosis of both sacral ala, concerning for sacralinsufficiency fractures. Consider MRI follow-up. Other chronic and incidental findings as described above. I have personally reviewed the images of this examination and agree with theresident's findings and interpretation. Palliative Assessment and Recommendations 1. Encounter for palliative care Patient is a 32-year-old female with past medical history of stage IIIb cervical cancer (status post chemoradiation, currently in remission), hydronephrosis (left nephrostomy tube since 2019), frequent UTIs. Patient noted with multiple readmissions. Last admission on 02/23/2023 for a worsening abdominal and back pains. [facility] with similar symptoms of abdominal pain and flank pain. Patient is status post nephro tube exchange, continues on antibiotic for UTI.Patient continues with uncontrolled cancer related pain, palliative care consulted for pain management. Goals of care: Introduced myself and role of inpatient palliative care. Patient is familiar with our team and is appreciated of of our recommendations and assistance in her care. Patient verbalized at home she would take her scheduled MS Contin as recommended, also utilizes her 10 mg oxycodone every 4 hours. Patient verbalized understanding that oxycodone is meant to be as needed, however she states she required it every 4 hours to keep her pain at a tolerable level of 4. Patient verbalizes improvement of appetite and anxiety since previous admission. Next of kin: Patient's parents are , she has patient verbalizes her stepdad also remains supportive and involved in her life. No children, she is not . She has 1 biological sister, Zandra. I educated patient per [place] revised code in the event she is unable to make medical decisions for herself, medical decision making would fall to patient's next of kin which would be her Sister Zandra. Patient verbalizes understanding and states she is comfortable with Zandra making decisions in the event she is unable to. CODE STATUS: Full code 2. Stage IIIb cervical cancer, currently in remission Management per primary team, patient verbalizes a possible [facility] referral, patient states she would be interested in pursuing this recommendation. 3. Cancer related pain I have reviewed the [place] Automated Rx Reporting System (OARRS) report for this patient for refill pattern and other prescriber involvement as part of the appropriate surveillance for the provision ofacute and chronic controlled medications. The report was requested and reviewed on the date of thisentry, and was considered in the prescribing process. Based on patient's description of pain, and review of medication utilization at home. Recommendations as follows: Increase MS Contin to 45 mg 3 times daily Continue oxycodone 10 mg every 4 as needed for pain, patient educated to request oral breakthrough pain medication instead of IV Dilaudid. We will continue with already ordered dose of as needed Dilaudid for breakthrough pain if oral oxycodone is not sufficient. Also recommend trial of naproxen 220 mg twice daily to assist with inflammatory/spasmodic pain. This was reviewed with primary team, no contraindications for medication Spoke with bedside nurse in regards to pain management and plan, reinforced need to recommend oral medication prior to IV for pain management. 4. Complicated UTI Management per primary team 5. Left hydronephrosis Chronic nephrostomy tube since 2019, exchanged this hospitalization Management per primary team 6. Hypoalbuminemia serum albumin noted to be 2.8. 7. Anxiety Lorazepam 1 mg 3 times daily for anxiety. Patient verbalizes anxiety is well controlled Patient also utilizes Remeron, currently increased to 30 mg nightly 8. Slow transit constipation Patient having regular bowel movements at present. Medication review noted that she is declining scheduled MiraLAX. With opioid use and is encouraged to still have a daily bowel regimen plan in place. Educated patient on constipation prevention while on opioid therapy will change MiraLAX 17 g twice daily to as needed We will start senna 17.2 mg nightly Patient verbalized understanding of recommendations and was agreeable. Review of labs, historical records, progress notes, and diagnostics Recommendations discussed with my collaborating physician Dr. Sawyer , as well as primary team. Thank you for requesting our participation in the care of your patient. We will continue to follow during their hospitalization. Problem List/Past Medical History Ongoing Acute kidney injury Anxiety Asthma Bilateral flank pain Cervical cancer Complicated UTI (urinary tract infection) Decreased appetite Dehydration DVT prophylaxis History of chemotherapy History of radiation therapy Left flank pain Moderate protein-calorie malnutrition Nausea and vomiting Nephrostomy status Obstructive uropathy Port-A-Cath in place Premature menopause Pyelonephritis Historical Cervicitis Chronic kidney disease, stage 3 (moderate) Encounter for antineoplastic chemotherapy ESBL (extended spectrum beta-lactamase) producing bacteria infection History of COVID-19 Hydronephrosis of left kidney Mass of cervix Tinnitus Procedure/Surgical History Nephrostomy with tube drainage: 01/10/21 JJ stent: 11/15/20 Radiation: 06/2020 Cervical biopsy: 2019 Tumor cells, benign: 2001 Nephrostomy with tube drainage Medications Inpatient Dilaudid, 1 mg= 1 mL, IV Push, q2h, PRN Dilaudid, 0.5 mg= 0.5 mL, IV Push, q2h, PRN gabapentin, 300 mg= 1 cap(s), Oral, qHS lidocaine 1% preservative-free injectable solution, 2.5 mg= 0.25 mL, Intradermal, prep pharm lidocaine 1% preservative-free injectable solution, 2.5 mg= 0.25 mL, Intradermal, prep pharm LORazepam, 1 mg= 1 tab(s), Oral, q8h Merrem Miralax Powder Packet, 17 gram(s)= 15 mL, Oral, BID, PRN mirtazapine, 30 mg= 2 tab(s), Oral, qDay MS Contin, 45 mg= 3 tab(s), Oral, q8h ondansetron, 4 mg= 1 tab(s), Oral, q6h, PRN oxyCODONE 5 mg oral tablet ( IMMEDIATE release ), 10 mg= 2 tab(s), Oral, q4h, PRN Protonix IV Push, 40 mg, IV Push, qDay senna, 17.2 mg= 2 tab(s), Oral, qHS Zofran, 4 mg= 2 mL, IV Push, q4h Home gabapentin 300 mg oral capsule, 300 mg= 1 cap(s), Oral, qHS LORazepam 1 mg oral tablet, 1 mg= 1 tab(s), Oral, q8h mirtazapine 15 mg oral tablet, 15 mg= 1 tab(s), Oral, qDay morphine 30 mg/8 to 12 hr oral tablet, extended release, 30 mg= 1 tab(s), Oral, q12h ondansetron 4 mg oral tablet, 4 mg= 1 tab(s), Oral, q6h, PRN oxyCODONE 10 mg oral tablet ( IMMEDIATE release ), 10 mg= 1 tab(s), Oral, q4h, PRN Allergies Oranges penicillin Social History Alcohol - Denies Alcohol Use, 06/13/2020 Use: Current. Type: Beer. Frequency: 1-2 times per week., 12/21/2021 Home/Environment - No Risk, 06/13/2020 Domestic Concerns: None. Living situation: Home/Independent. Safe place to go: Yes. Lives In: Mobile home, 1st floor bedroom, 1st floor bathroom. Current Home Treatments None. Professional Skilled Services or Special Community Resources None. Financial concerns: No. Marital Status: Unmarried., 06/13/2020 Nutrition/Health - No Risk, 06/13/2020 Type of diet: Regular. Appetite Fair. Eating Difficulties None. Caffeine intake amount: 1 can pop per day., 06/13/2020 Sexual Sexually active: Yes. First active at age: 18 Years. Current partners: 1. Number of lifetime partners: 7. Self described orientation: Straight or heterosexual. Other contraceptive use: condoms. History of sexual abuse: No. Gender Identity: Identifies as female., 04/12/2020 Substance Abuse - Denies Substance Abuse, 06/13/2020 Use: Never., 04/12/2020 Tobacco Nicotine Use: 5-9 cigarettes (between 1/4 to 1/2 pack)/day in last 30 days. Type: Cigarettes. Tobacco use per day: 10. Number of years: 10. Started at age: 19 Years. Previous treatment: None. Ready to change: Yes., 04/12/2020 Family History Alcohol abuse: Father. Asthma: Mother. Bladder cancer: Negative: Mother, Father, Sister, Brother, Daughter, Son and Grandparent. Breast cancer: Mother. COPD - Chronic obstructive pulmonary disease: Mother. Cancer: Sister. Diabetes: Grandparent. Heart attack: Mother. Heart disease: Mother. Hypertension: Mother. Kidney stone: Mother. Renal cancer: Negative: Mother, Father, Sister, Brother, Daughter, Son and Grandparent. Stroke: Father and Grandparent. Substance abuse: Father. Code Status Code Status - Ordered -- 04/27/23 22:26:00 EDT, Full Code, Constant Order Digitally Signed by NUBAI POWERS on 04/30/2023 11:30 AM Digitally Signed by NUBIA POWERS on 04/30/2023 11:33 AM [id number] Note Patient not in room. Plan for Nephrostomy exchange today. Will reassess later. Digitally Signed by JAMAL Phipps on 04/29/2023 11:07 AM [facility] [id number] Note ORIGINAL HISTORY: ORDERING SYSTEM PROVIDED HISTORY: Reason for Exam: Patient with UTI and nephrostomy tube not replaced since 02/17 COMPARISON: CT 04/27/23; last change 02/17/23 PROCEDURE: 1. Nephroureteral drain tube exchange under fluoroscopy LATERALITY: Left HUMAN RESOURCES DIRECTOR: Dr. Aparicio CHAIR TRIMMER: None The procedure, risks, and alternatives, were discussed and all questions were answered. Informed consent obtained. Maximal sterile barrier technique, hand hygiene, skin prep, and sterile ultrasound techniques (if used) utilized. Percutaneous site was sterilely prepped and draped. Time out performed. Sausage Stuffer image demonstrates stable appearance of the nephroureteral drainage tube. Contrast injection through the catheter demonstrates no hydronephrosis. There is good flow of contrast through the tube into the bladder. Local anesthesia administered. After cutting the hub, the old catheter was exchanged for a new one and the distal loop formed in the renal pelvis, confirmed with contrast injection. The string was removed in its entirety. Catheter was stitched to the skin. Sterile dressing applied. Left to external drainage as patient states she is unable to void just until the night prior. COMPLICATIONS: None EBL: Minimal CONDITION: Stable, unchanged MATERIALS: 8.5Fr x 24 cm Cook NU catheter Amplatz ANESTHESIA: Moderate sedation was administered and monitored by dedicated nursing personnel under direct supervision by the cable operator. SEDATION TIME (min): 50 FLUORO (min): 3.1 AIR KERMA DOSE (mGy): 54 CONTRAST: Documented in Surginet. IMPRESSION: 1. Successful, uncomplicated nephroureteral drain tube change. Left to external drainage as patient is unable to void currently. After clinical improvement and return of bladder control, this catheter can be capped to liberate from external drain bag. 2. Routine change in 6 weeks suggested. Interpreted by: Madeline Aparicio MD Preliminary Report By: Madeline Aparicio MD Electronically signed By Madeline Aparicio MD Dictated Date: 04/30/2023 3:17:03 PM Prelim Date: 04/30/2023 3:21:11 PM Sign Date: 04/30/2023 3:21:11 PM Ordering Provider[facility]27-[facility] Procedure note Brief IR Post Procedure Note - Inpatient/Obs Pre Procedure Dx: Cancer, left hydro Post Procedure Dx: Same Procedure: 1. Left PCNU transportation security screener: Markus Food Quality Tester: None Anesthesia: Local, moderate sedation EBL: Minimal Complications:None Status: Stable Findings: 1. Injection shows widely patent catheter with drainage into bladder. 2. Successful 8.5 Fr x 24 cm nephroureteral catheter exchange on the left. 3. Pt states she is unable to urinate on her own so left the bag to external drainage. 4. Once patient able to void, can cap the tube. Plan: 1. Post sedation VS check 2. Resume diet 3. Routine exchange with mod sedation in 6 weeks. 4. Once patient able to void consistently, can cap the tube. Full report to follow. Orders in Cerner. Madeline Aparicio MD Vascular & Interventional Rad[facility] ([facility]) [email or web address] Pager: [phone] Vanessa ROGERS Dept (26/05): [id number] [facility] [phone] [facility] Digitally Signed by MADELINE APARICIO MD on 04/29/2023 10:33 AM [facility] [id number] History and physical note Date of Service 04/27/23 Chief Complaint Unable to uinate X 9 days. 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 History of Present Illness 32 yo Woman with history of Stage IIIB cervical cancer s/p chemoradiation currently in remission, presents to [place] emergency room for concern for UTI and flank pain. She has a known recurrent history of complicated urinary tract infection with ESBL/E. coli/Enterococcus/Klebsiella pneumonia. She was recently admitted for treatment of a E Coli UTI from 02/23-03/05 and was discharged home on 4 weeks of IV ertapenem. Today, she reports that she has been unable to void for the past 9 days and has been having increasing pelvic pain, similar in presentation to her last admission. She reports that she completed her full 4 week course of IV etrapenem as instructed after discharge but started feeling unwell approximately 1 week following the conclusion of that treatment. She also notes that over the last 9 days she has been having worsening vaginal, left flank and lower abdominal pain. Patient could not remember when last nephrostomy tube exchange was but remembered it was prior to last admission. On chart review it appears it was last done 02/17/23. For the past 5 days she has also noted increased nausea, intermittent vomiting, and overall decreased appetite. The urine in her nephrostomy tube has had a slight odor but has not had any blood in it. No rectal bleeding. Having regular bowel movements. Denies fevers, chills, chest pain, SOB. Denies hematuria. Denies vaginal bleeding or vaginal discharge. In the ER, UA was collected which showed evidence of likely UTI. Urine culture and blood cultures were collected and are pending. CT A/P was obtained which showed: Left collecting system and proximal ureteral wall thickening and enhancement concerning for pyelitis/ascending urinary tract infection. Heterogeneous mass or complex collection in the central pelvis with an eccentric area of hypodensity. The mass is difficult to compare to the prior study but is not significantly changed. Findings presumably relate to necrotic neoplasm. Continued surveillance advised. New serpiginous areas of sclerosis of both sacral ala, concerning for sacral insufficiency fractures. Consider MRI follow- up. Patient was given dose of meropenem in ER and subsequently admitted for treatment of complicated UTI. 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 Menarche age 14. Amenorrheic since initiation of Chemoradiation. Denies mammogram ever. Colonoscopy in 2020. Denies history of STDs. Not sexually active. Family History Mother with breast cancer Sister with cervical cancer Grandmother with cervical cancer Aunts with cervical cancer Cousins with cervical cancer ONCOLOGY HISTORY: - 04/04/2020: CT scan abdomen and pelvis. [facility]. Thickened cervical wall with involvementof the lower uterine segment, highly concerning for malignancy. There is involvement of the left ureter resulting in left hydronephrosis and hydroureter. Mildly enlarged right external iliac lymph node measuring 1.4 x 1.1 x 1.2 cm. - 04/13/2020: CT thorax. No evidence of active malignancy in the thorax. - 04/13/2020: IR nephrostomy tube insertion on the left. - 04/13/2020: MRI of the pelvis with contrast. Large uterine mass with extension to the pelvic fat and possible involvement of the mesorectal fascia. There is a prominent but not pathologically enlarged left pelvic lymph node which could be metastatic. Large cervical mass measuring 4.7 x 5.8 cm. - : Examination under Anesthesia, Cystourethroscopy, Cervical biopsies, Proctoscopy - 04/26/2020 Week #1 Cisplatin 40mg/m2 - 05/03/2020 Week #2 Cisplatin 20mg/m2 - 05/10/2020 Week #3 Cisplatin 20mg/m2 - 05/17/2020 Week #4 Cisplatin 20mg/m2 - 05/24/2020 Week #5 Cisplatin 20mg/m2 - 05/31/2020 Week #6 Cisplatin 20mg/m2 - 08/18/2020: CT urogram. Left percutaneous nephrostomy tube in place. Minimal left upper pole striated nephrogram. This finding is nonspecific and may be seen with inflammation or obstruction. Sincethere is no significant adjacent infiltrative changes within the perinephric fat, this could potentially be indicative of minimal left side obstruction. Improvement of the cervix lesion since the prior exam, diminished in size since prior study. - 12/07/2020 PET/CT no abnormal uptake at the uterine cervix, FDG avid lymphadenopathy or metastatic disease is seen. - 2020 CT abdomen and pelvis decreased left nephrogram with ectasia of the left upper tract and enhancement of the uroepithelium lining is worrisome for obstruction and/or infection following interval ureteral stent removal. - 01/09/2021 MRI of the pelvis treated disease with no significant residual tumor identified on this exam. Mild infiltrative change within the deep pelvic fat is presumably the result of radiation therapy, and attention to follow-up is recommended. Re-demonstration of mildly dilated left ureter and collecting system, compatible of history of pyelonephritis. RADIATION SUMMARY: Dates of treatment: 04/26/2020 - 06/07/2020 Treatment details : Initially the pelvis was treated to a dose of 4500 cGy in 25 fractions using intensity modulated radiation therapy with 6 MV photons. Following this dose the parametrium was boosted an additional 540 cGy in 3 fractions through AP PA quintero with midline block taken her final pelvic tumor dose to 5040 centigray. She was treated with concurrent cisplatin based chemotherapy. The patient then underwent for intracavitary brachii therapy applications with [id number] iridium 192afterloading device utilizing a tandem and ring. 2400 cGy was delivered at 600 cGy per fraction to point A from June 14, 2020 through July 11, 2020. The plan was to deliver 5 brachytherapy applications, however, the patient failed to show for surgery 3 times. Therefore, the decision to foregothe last treatment was made as it had been nearly 3 months since initiating therapy. Course: C1 Pelvis Treatment Site Ref. ID Energy Dose/Fx (cGy) #Fx Total Dose (cGy) Start Date End Date Elapsed Days IMRT [facility] Pelvis 6X 180 4,500 04/26/2020 06/02/2020 37 3D PM Bst 18X 180 540 06/05/2020 06/07/2020 2 GENETIC TESTING: - [facility] No reportable somatic or germline pathogenic or actionable mutations were found. Tumor mutational burden was 39th percentile. Microsatellite instability status stable. Somatic variants of unknown significance were found in PRKDC, TRAF3, AGUSTIN, ERBB4, and CXCR4. Variants of unknown significance and germline mutations were found in BRCA2 and RAD51C.DNA mismatch repair protein expression was normal. PD-L1 expression was positive. Review of Systems See HPI. All other review of systems are negative. Physical Exam Vitals and Measurements T: 37.2 C (Oral) HR: 86 RR: 17 BP: 138/98 SpO2: 95% WT: 63.9 kg Weight Dosing Weight: 63.9 kg (04/27/23) General Appearance: Chronically ill-appearing, resting on room air Head: Atraumatic normocephalic EENT: Moist mucous membranes Cardiopulmonary: Breathing easily on room air, no cyanosis, wheezing, accessory muscle use. Lungs clear bilaterally. RRR. Abdomen: Soft and nondistended. Mild diffuse tenderness in lower abdomen, no palpable masses or fluid wave. Back pain on palpation of flanks bilaterally. Area of nephrostomy tube is not inflamed or indurated. No pus or other suggestion of cutaneous infection. Musculoskeletal: Moving extremities appropriately Extremities: Warm, minimal edema Neurological: Alert and oriented x3 Lab Results 04/27 17:03 WBC: 8.7 Hgb: 13.1 Hct: 39.5 Platelet: 441 Neutrophil %: 62.2 Glucose Level: 94 Sodium Level: 140 Potassium Level: 3.8 BUN: 7.0 L Creatinine Lvl (s): 0.82 Imaging Results and [address] CT Abd/Pelvis w/ IV Contrast Only Result Date: April 27, 2023 Verified By: TABITHA LORA, SHAHBAZ Metz CLINICAL STATEMENT: IMPRESSION: Left collecting system and proximal ureteral wall thickening and enhancementconcerning for pyelitis/ascending urinary tract infection. Heterogeneous mass or complex collection in the central pelvis with aneccentric area of hypodensity. The mass is difficult to compare to the priorstudy but is not significantly changed. Findings presumably relate tonecrotic neoplasm. Continued surveillance advised New serpiginous areas of sclerosis of both sacral ala, concerning for sacralinsufficiency fractures. Consider MRI follow-up. Other chronic and incidental findings as described above. I have personally reviewed the images of this examination and agree with theresident's findings and interpretation. EKG N/A Assessment/Plan 1. Complicated UTI (urinary tract infection) - Left nephrostomy tube in place since 02/17. - Was recently admitted for same issue from 02/23-03/05, discharged on 4 weeks of ertapenem which she completed - Urine culture from nephrostomy tube pending, UA suggestive of UTI. Refused straight cath. - Meropenem started in ER, will continue - Consider ID consultation - 02/26 CT A/P: 2.4 cm peripherally enhancing mass within the inferior central pelvis. Discussed with IR, it is the uterus with post-radiation changes. Therefore, no biopsy recommended. - 04/27 CT A/P in ER showed similar mass as prior scan. Left collecting system and proximal ureteralwall thickening concerning for pyelitis/ascending UTI. New concern for sacral insufficiency fractures. 2. Bilateral flank pain - Chronic pain due to cervical cancer - 01/01 Urogram showed no evidence of right urinary tract obstruction 3. Nephrostomy status - Last exchanged 02/17 - Consider exchange while inpatient 4. Cervical cancer - Stage IIIB SCC of cervix - S/p Chemoradiation, currently in remission - Port-A-Cath in place - 02/26 CT A/P: 2.4 cm peripherally enhancing mass within the inferior central pelvis. Discussed with IR, it is the uterus with post-radiation changes. Therefore, no biopsy recommended. - 04/27 CT A/P in ER showed similar mass as prior scan. Left collecting system and proximal ureteralwall thickening concerning for pyelitis/ascending UTI. New concern for sacral insufficiency fractures. - Pain regimen: MS Contin to 30mg BID. Oxycodone 10mg q4hrs PRN breakthrough. Gabapentin 300mg qHS. 5. Tobacco use - Nicotine patches available upon request 6. Anxiety - Continue Ativan TID PRN, medrec pending. 7. Asthma - Asymptomatic 9. Sacral lesion - New lesions seen on CT scan today - Consider bone scan or other further imaging. Admit to regular floor Condition: Stable Vitals: q8hr Activity: Up Ad Marisa Diet: Regular IVF: NS 100/hr, Meropenem 1g q8 hours DVT Prophylaxis: SCDs Consults: - Dispo: Readmission for complicated UTI treatment. Treating with meropenem, urine culture pending. Due for neph tube exchange, last was on 02/17. Med rec pending. Discussed above with Dr. Martin. Problem List/Past Medical History Ongoing Acute kidney injury Anxiety Asthma Bilateral flank pain Cervical cancer Complicated UTI (urinary tract infection) Decreased appetite Dehydration DVT prophylaxis History of chemotherapy History of radiation therapy Left flank pain Moderate protein-calorie malnutrition Nausea and vomiting Nephrostomy status Obstructive uropathy Port-A-Cath in place Premature menopause Pyelonephritis Historical Cervicitis Chronic kidney disease, stage 3 (moderate) Encounter for antineoplastic chemotherapy ESBL (extended spectrum beta-lactamase) producing bacteria infection History of COVID-19 Hydronephrosis of left kidney Mass of cervix Tinnitus Procedure/Surgical History Nephrostomy with tube drainage: 01/10/21 JJ stent: 11/15/20 Radiation: 06/2020 Cervical biopsy: 2019 Tumor cells, benign: 2002 Nephrostomy with tube drainage Medications Home Medications (7) Active gabapentin 300 mg oral capsule 300 mg = 1 cap(s), Oral, qHS gabapentin 300 mg oral capsule 300 mg = 1 cap(s), Oral, qHS LORazepam 1 mg oral tablet 1 mg = 1 tab(s), Oral, q8h mirtazapine 15 mg oral tablet 15 mg = 1 tab(s), Oral, qDay MS Contin 30 mg/8-12 hrs oral tablet, extended release 30 mg = 1 tab(s), Oral, q12h ondansetron 4 mg oral tablet 4 mg = 1 tab(s), PRN, Oral, q6h oxyCODONE 10 mg oral tablet ( IMMEDIATE release ) 10 mg = 1 tab(s), PRN, Oral, q4h Allergies Oranges penicillin Social History Alcohol - Denies Alcohol Use, 06/13/2020 Use: Current. Type: Beer. Frequency: 1-2 times per week., 12/21/2021 Home/Environment - No Risk, 06/13/2020 Domestic Concerns: None. Living situation: Home/Independent. Safe place to go: Yes. Lives In: Mobile home, 1st floor bedroom, 1st floor bathroom. Current Home Treatments None. Professional Skilled Services or Special Community Resources None. Financial concerns: No. Marital Status: Unmarried., 06/13/2020 Nutrition/Health - No Risk, 06/13/2020 Type of diet: Regular. Appetite Fair. Eating Difficulties None. Caffeine intake amount: 1 can pop per day., 06/13/2020 Sexual Sexually active: Yes. First active at age: 18 Years. Current partners: 1. Number of lifetime partners: 7. Self described orientation: Straight or heterosexual. Other contraceptive use: condoms. History of sexual abuse: No. Gender Identity: Identifies as female., 04/12/2020 Substance Abuse - Denies Substance Abuse, 06/13/2020 Use: Never., 04/12/2020 Tobacco Nicotine Use: 5-9 cigarettes (between 1/4 to 1/2 pack)/day in last 30 days. Type: Cigarettes. Tobacco use per day: 10. Number of years: 10. Started at age: 19 Years. Previous treatment: None. Ready to change: Yes., 04/12/2020 Family History Alcohol abuse: Father. Asthma: Mother. Bladder cancer: Negative: Mother, Father, Sister, Brother, Daughter, Son and Grandparent. Breast cancer: Mother. COPD - Chronic obstructive pulmonary disease: Mother. Cancer: Sister. Diabetes: Grandparent. Heart attack: Mother. Heart disease: Mother. Hypertension: Mother. Kidney stone: Mother. Renal cancer: Negative: Mother, Father, Sister, Brother, Daughter, Son and Grandparent. Stroke: Father and Grandparent. Substance abuse: Father. Immunizations hepatitis B pediatric vaccine: 0 unknown unit (06/16/01) hepatitis B pediatric vaccine: 0 unknown unit (06/21/98) measles/mumps/rubella virus vaccine: 0 unknown unit (06/16/01) Code Status No qualifying data available. Digitally Signed by SASHA MON MD on 04/28/2023 03:41 AM [facility] [id number] Evaluation + Plan noteExtracted from: Title:History and Physical Author:SASHA MON MD Date:04/28/23 1. Complicated UTI (urinary tract infection) - Left nephrostomy tube in place since 02/17. - Was recently admitted for same issue from 02/23-03/05, discharged on 4 weeks of ertapenem which she completed - Urine culture from nephrostomy tube pending, UA suggestive of UTI. Refused straight cath. - Meropenem started in ER, will continue - Consider ID consultation - 02/26 CT A/P: 2.4 cm peripherally enhancing mass within the inferior central pelvis. Discussed with IR, it is the uterus with post-radiation changes. Therefore, no biopsy recommended. - 04/27 CT A/P in ER showed similar mass as prior scan. Left collecting system and proximal ureteral wall thickening concerning for pyelitis/ascending UTI. New concern for sacral insufficiency fractures. 2. Bilateral flank pain - Chronic pain due to cervical cancer - 01/01 Urogram showed no evidence of right urinary tract obstruction 3. Nephrostomy status - Last exchanged 02/17 - Consider exchange while inpatient 4. Cervical cancer - Stage IIIB SCC of cervix - S/p Chemoradiation, currently in remission - Port-A-Cath in place - 02/26 CT A/P: 2.4 cm peripherally enhancing mass within the inferior central pelvis. Discussed with IR, it is the uterus with post-radiation changes. Therefore, no biopsy recommended. - 04/27 CT A/P in ER showed similar mass as prior scan. Left collecting system and proximal ureteral wall thickening concerning for pyelitis/ascending UTI. New concern for sacral insufficiency fractures. - Pain regimen: MS Contin to 30mg BID. Oxycodone 10mg q4hrs PRN breakthrough. Gabapentin 300mg qHS. 5. Tobacco use - Nicotine patches available upon request 6. Anxiety - Continue Ativan TID PRN, medrec pending. 7. Asthma - Asymptomatic 9. Sacral lesion - New lesions seen on CT scan today - Consider bone scan or other further imaging. Admit to regular floor Condition: Stable Vitals: q8hr Activity: Up Ad Marisa Diet: Regular IVF: NS 100/hr, Meropenem 1g q8 hours DVT Prophylaxis: SCDs Consults: - Dispo: Readmission for complicated UTI treatment. Treating with meropenem, urine culture pending. Due for neph tube exchange, last was on 02/17. Med rec pending. Discussed above with Dr. Martin. Addendum by SASHA MON on April 28, 2023 03:42:10 EDT Patient also had headache on admission, administered 2 tablets of Fioricet. Pain was also poorly controlled so gave 10 mg oxycodone PO as she had not had her home regimen. Addendum by FLIP MARTIN on April 28, 2023 14:16:07 EDT I personally saw and evaluated the patient on April 28, 2023 at approximately 2:15 PM on my rounds. I have reviewed the above documentation and clinical decision making and I agree. Any changes or exceptions will be noted in this addendum. Today the patient states she is feeling okay. She has been able to urinate for several days. This was causing her increased pain. She presented to the ER for evaluation. Temperature Oral: 36.5 DegC Peripheral Pulse Rate: 67 bpm Heart Rate Monitored: 78 bpm Respiratory Rate: 16 br/min Systolic Blood Pressure Non-Invasive: 134 mmHg Diastolic Blood Pressure Non-Invasive: 59 mmHg Low Mean Arterial Pressure (NBP): 106 mmHg Blood Pressure Method: Automatic Blood Pressure Location: Left arm Blood Pressure Cuff Size: Medium Reason For Taking VItal Signs: Admission I independently performed a physical examination of the patient. My findings are consistent with the above documentation. I reviewed the results of the blood work from April 27, 2023. WBC 8.7, hemoglobin 13.1, hematocrit 39.5, platelets 441, ANC 5400. Glucose 94, sodium 140, potassium 3.8, chloride 111, CO2 28, BUN 7.0. Creatinine 0.82. Calcium 9.2. UA from yesterday showed moderate blood, 1 to +2 protein, positive nitrites, positive leuk esterase. Cultures are still pending. I reviewed the results of this morning's blood work. WBC 6.8, hemoglobin 11.1, hematocrit 33.6, platelets 375, ANC 3700. Glucose 92, sodium 140, potassium 3.5, chloride 110, CO2 24, BUN 7.0, creatinine 0.79. Calcium 8.3, magnesium 1.9, phosphorus 4.1. Albumin 2.9, total bili 030, alk phos 94, AST 13, ALT less than 7. Blood culture and urine culture results from 04/27/2023 are negative so far. I personally reviewed the images and reports of the CT scan of the abdomen and pelvis that was performed in the emergency room. Left collecting system and proximal ureter wall thick 9 and an aunt spent discerning for pyelitis/ascending tract urinary tract infection. New serpiginous areas of sclerosis of both sacral clari, concerning for sacral insufficiency fractures consider MRI follow-up. I had a long conversation today with the patient. We reviewed her symptoms in great detail. We discussed the findings on physical examination, blood work, culture results, and imaging studies. We had a long conversation about her cyclical pattern of being needed to be admitted almost every 6 weeks for pyelonephritis. She does still need that nephrostomy tube. Consideration would be for changing her nephrostomy tube every 4 weeks instead of every 6 weeks because this may be too long of an interval. Additionally, we have discussed with her in the past seeing a urologist in [place] to consider nephrectomy. She has had a consultation at previously, but she states that she would rather see somebody at [facility] because she did not necessarily feel comfortable with that hospital system. I told her I would look into seeing who I could find out there for her to see. She will talk to her Sister Zandra about her schedule because Zandra will be able to help her with transport to the appointment and also would like to be there for the appointment. For now, continue IV antibiotics. Place an order for IR to replace the nephrostomy tube. The Remeron has been helping with her appetite. She also states that it has been helping with her mood swings. Her current dose is 15 mg nightly. We should increase this to 30 mg nightly. With tomorrow morning's labs, please also order: Vitamin D level, B12 level, folate level, iron studies, and ferritin. Await urine cultures. Depending on what the cultures show us, we may need to consult infectious disease. Please also put in a consult to [facility] oncology nurse navigator. I explained the plan to the patient. I answered all of her questions. FLIP MARTIN MD FACOG Future Appointments Appointment Date:05/13/2023 02:00:00 PM Scheduled Provider: Location:INF Appointment Type:INF Labwork Appointment Date:05/15/2023 03:20:00 PM Scheduled Provider:FLIP MARTIN MD Location:[facility] Appointment Type:SO OV Follow Up Appointment Date:06/24/2023 11:00:00 AM Scheduled Provider: Location:IR Appointment Type:IR Neph Cath-Neph Ureter W/Guide Left Future Scheduled Tests Laboratory* Urinalysis 02/14/23 Radiology* IR Neph Cath-Neph Ureter W/Guide Left 07/03/22 * IR Neph Cath-Neph Ureter W/Guide Left 08/02/22 * IR Neph Cath-Neph Ureter W/Guide Left 09/02/22 * IR Neph Cath-Neph Ureter W/Guide Left 10/02/22 * IR Neph Cath-Neph Ureter W/Guide Left 11/02/22 * IR Neph Cath-Neph Ureter W/Guide Left 12/03/22 * IR Neph Cath-Neph Ureter W/Guide Left 12/31/22 * IR Neph Cath-Neph Ureter W/Guide Left 01/31/23 * IR Neph Cath-Neph Ureter W/Guide Left 03/02/23 * IR Neph Cath-Neph Ureter W/Guide Left 04/02/23 * IR Neph Cath-Neph Ureter W/Guide Left 05/02/23 * IR Neph Cath-Neph Ureter W/Guide Left 06/02/23 * IR Neph Cath-Neph Ureter W/Guide Left 06/24/23 [facility] 06-26-2023 Progress note Date of Service APRIL 28, 2023 I was paged by the emergency room staff. I was told that the patient wanted to speak to me over thetelephone. She would not relay a message through them. I am in the operating room right now, so I could not physically come down to see the patient. I plan on seeing her on my rounds later today. I was able to speak to the patient over the telephone. At the time that she requested to be called,she stated that she was not given her home medications for nausea, pain, and anxiety. However, when I was able to speak to the patient, she stated that the orders had gone through and she had received her medications. I let her know that I would be by later today on rounds to see her. FLIP MARTIN MD FACOG Digitally Signed by FLIP MARTIN MD on 04/28/2023 07:51 AM [facility] [id number] History and physical note Date of Service 04/27/23 Chief Complaint Unable to uinate X 9 days. 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 History of Present Illness 32 yo Woman with history of Stage IIIB cervical cancer s/p chemoradiation currently in remission, presents to [place] emergency room for concern for UTI and flank pain. She has a known recurrent history of complicated urinary tract infection with ESBL/E. coli/Enterococcus/Klebsiella pneumonia. She was recently admitted for treatment of a E Coli UTI from 02/23-03/05 and was discharged home on 4 weeks of IV ertapenem. Today, she reports that she has been unable to void for the past 9 days and has been having increasing pelvic pain, similar in presentation to her last admission. She reports that she completed her full 4 week course of IV etrapenem as instructed after discharge but started feeling unwell approximately 1 week following the conclusion of that treatment. She also notes that over the last 9 days she has been having worsening vaginal, left flank and lower abdominal pain. Patient could not remember when last nephrostomy tube exchange was but remembered it was prior to last admission. On chart review it appears it was last done 02/17/23. For the past 5 days she has also noted increased nausea, intermittent vomiting, and overall decreased appetite. The urine in her nephrostomy tube has had a slight odor but has not had any blood in it. No rectal bleeding. Having regular bowel movements. Denies fevers, chills, chest pain, SOB. Denies hematuria. Denies vaginal bleeding or vaginal discharge. In the ER, UA was collected which showed evidence of likely UTI. Urine culture and blood cultures were collected and are pending. CT A/P was obtained which showed: Left collecting system and proximal ureteral wall thickening and enhancement concerning for pyelitis/ascending urinary tract infection. Heterogeneous mass or complex collection in the central pelvis with an eccentric area of hypodensity. The mass is difficult to compare to the prior study but is not significantly changed. Findings presumably relate to necrotic neoplasm. Continued surveillance advised. New serpiginous areas of sclerosis of both sacral ala, concerning for sacral insufficiency fractures. Consider MRI follow- up. Patient was given dose of meropenem in ER and subsequently admitted for treatment of complicated UTI. 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 Menarche age 14. Amenorrheic since initiation of Chemoradiation. Denies mammogram ever. Colonoscopy in 2019. Denies history of STDs. Not sexually active. Family History Mother with breast cancer Sister with cervical cancer Grandmother with cervical cancer Aunts with cervical cancer Cousins with cervical cancer ONCOLOGY HISTORY: - 04/04/2020: CT scan abdomen and pelvis. [facility]. Thickened cervical wall with involvementof the lower uterine segment, highly concerning for malignancy. There is involvement of the left ureter resulting in left hydronephrosis and hydroureter. Mildly enlarged right external iliac lymph node measuring 1.4 x 1.1 x 1.2 cm. - 04/13/2020: CT thorax. No evidence of active malignancy in the thorax. - 04/13/2020: IR nephrostomy tube insertion on the left. - 04/13/2020: MRI of the pelvis with contrast. Large uterine mass with extension to the pelvic fat and possible involvement of the mesorectal fascia. There is a prominent but not pathologically enlarged left pelvic lymph node which could be metastatic. Large cervical mass measuring 4.7 x 5.8 cm. - : Examination under Anesthesia, Cystourethroscopy, Cervical biopsies, Proctoscopy - 04/26/2020 Week #1 Cisplatin 40mg/m2 - 05/03/2020 Week #2 Cisplatin 20mg/m2 - 05/10/2020 Week #3 Cisplatin 20mg/m2 - 05/17/2020 Week #4 Cisplatin 20mg/m2 - 05/24/2020 Week #5 Cisplatin 20mg/m2 - 05/31/2020 Week #6 Cisplatin 20mg/m2 - 08/18/2020: CT urogram. Left percutaneous nephrostomy tube in place. Minimal left upper pole striated nephrogram. This finding is nonspecific and may be seen with inflammation or obstruction. Sincethere is no significant adjacent infiltrative changes within the perinephric fat, this could potentially be indicative of minimal left side obstruction. Improvement of the cervix lesion since the prior exam, diminished in size since prior study. - 12/07/2020 PET/CT no abnormal uptake at the uterine cervix, FDG avid lymphadenopathy or metastatic disease is seen. - 2020 CT abdomen and pelvis decreased left nephrogram with ectasia of the left upper tract and enhancement of the uroepithelium lining is worrisome for obstruction and/or infection following interval ureteral stent removal. - 01/09/2021 MRI of the pelvis treated disease with no significant residual tumor identified on this exam. Mild infiltrative change within the deep pelvic fat is presumably the result of radiation therapy, and attention to follow-up is recommended. Re-demonstration of mildly dilated left ureter and collecting system, compatible of history of pyelonephritis. RADIATION SUMMARY: Dates of treatment: 04/26/2020 - 06/07/2020 Treatment details : Initially the pelvis was treated to a dose of 4500 cGy in 25 fractions using intensity modulated radiation therapy with 6 MV photons. Following this dose the parametrium was boosted an additional 540 cGy in 3 fractions through AP PA quintero with midline block taken her final pelvic tumor dose to 5040 centigray. She was treated with concurrent cisplatin based chemotherapy. The patient then underwent for intracavitary brachii therapy applications with [id number] iridium 192afterloading device utilizing a tandem and ring. 2400 cGy was delivered at 600 cGy per fraction to point A from June 14, 2020 through July 11, 2020. The plan was to deliver 5 brachytherapy applications, however, the patient failed to show for surgery 3 times. Therefore, the decision to foregothe last treatment was made as it had been nearly 3 months since initiating therapy. Course: C1 Pelvis Treatment Site Ref. ID Energy Dose/Fx (cGy) #Fx Total Dose (cGy) Start Date End Date Elapsed Days IMRT SEAM RUBBER Pelvis 6X 180 4,500 04/26/2020 06/02/2020 37 3D PM Bst 18X 180 540 06/05/2020 06/07/2020 2 GENETIC TESTING: - Patient had genetic testing sent through [facility]. No reportable somatic or germline pathogenic or actionable mutations were found. Tumor mutational burden was 39th percentile. Microsatellite instability status stable. Somatic variants of unknown significance were found in PRKDC, TRAF3, AGUSTIN, ERBB4, and CXCR4. Variants of unknown significance and germline mutations were found in BRCA2 and RAD51C.DNA mismatch repair protein expression was normal. PD-L1 expression was positive. Review of Systems See HPI. All other review of systems are negative. Physical Exam Vitals and Measurements T: 37.2 C (Oral) HR: 86 RR: 17 BP: 138/98 SpO2: 95% WT: 63.9 kg Weight Dosing Weight: 63.9 kg (04/27/23) General Appearance: Chronically ill-appearing, resting on room air Head: Atraumatic normocephalic EENT: Moist mucous membranes Cardiopulmonary: Breathing easily on room air, no cyanosis, wheezing, accessory muscle use. Lungs clear bilaterally. RRR. Abdomen: Soft and nondistended. Mild diffuse tenderness in lower abdomen, no palpable masses or fluid wave. Back pain on palpation of flanks bilaterally. Area of nephrostomy tube is not inflamed or indurated. No pus or other suggestion of cutaneous infection. Musculoskeletal: Moving extremities appropriately Extremities: Warm, minimal edema Neurological: Alert and oriented x3 Lab Results 04/27 17:03 WBC: 8.7 Hgb: 13.1 Hct: 39.5 Platelet: 441 Neutrophil %: 62.2 Glucose Level: 94 Sodium Level: 140 Potassium Level: 3.8 BUN: 7.0 L Creatinine Lvl (s): 0.82 Imaging Results and Diagnostics CT Abd/Pelvis w/ IV Contrast Only Result Date: April 27, 2023 Verified By: TABITHA LORA, SHAHBAZ Metz CLINICAL STATEMENT: IMPRESSION: Left collecting system and proximal ureteral wall thickening and enhancementconcerning for pyelitis/ascending urinary tract infection. Heterogeneous mass or complex collection in the central pelvis with aneccentric area of hypodensity. The mass is difficult to compare to the priorstudy but is not significantly changed. Findings presumably relate tonecrotic neoplasm. Continued surveillance advised New serpiginous areas of sclerosis of both sacral ala, concerning for sacralinsufficiency fractures. Consider MRI follow-up. Other chronic and incidental findings as described above. I have personally reviewed the images of this examination and agree with theresident's findings and interpretation. EKG N/A Assessment/Plan 1. Complicated UTI (urinary tract infection) - Left nephrostomy tube in place since 02/17. - Was recently admitted for same issue from 02/23-03/05, discharged on 4 weeks of ertapenem which she completed - Urine culture from nephrostomy tube pending, UA suggestive of UTI. Refused straight cath. - Meropenem started in ER, will continue - Consider ID consultation - 02/26 CT A/P: 2.4 cm peripherally enhancing mass within the inferior central pelvis. Discussed with IR, it is the uterus with post-radiation changes. Therefore, no biopsy recommended. - 04/27 CT A/P in ER showed similar mass as prior scan. Left collecting system and proximal ureteralwall thickening concerning for pyelitis/ascending UTI. New concern for sacral insufficiency fractures. 2. Bilateral flank pain - Chronic pain due to cervical cancer - 01/01 Urogram showed no evidence of right urinary tract obstruction 3. Nephrostomy status - Last exchanged 02/17 - Consider exchange while inpatient 4. Cervical cancer - Stage IIIB SCC of cervix - S/p Chemoradiation, currently in remission - Port-A-Cath in place - 02/26 CT A/P: 2.4 cm peripherally enhancing mass within the inferior central pelvis. Discussed with IR, it is the uterus with post-radiation changes. Therefore, no biopsy recommended. - 04/27 CT A/P in ER showed similar mass as prior scan. Left collecting system and proximal ureteralwall thickening concerning for pyelitis/ascending UTI. New concern for sacral insufficiency fractures. - Pain regimen: MS Contin to 30mg BID. Oxycodone 10mg q4hrs PRN breakthrough. Gabapentin 300mg qHS. 5. Tobacco use - Nicotine patches available upon request 6. Anxiety - Continue Ativan TID PRN, medrec pending. 7. Asthma - Asymptomatic 9. Sacral lesion - New lesions seen on CT scan today - Consider bone scan or other further imaging. Admit to regular floor Condition: Stable Vitals: q8hr Activity: Up Ad Marisa Diet: Regular IVF: NS 100/hr, Meropenem 1g q8 hours DVT Prophylaxis: SCDs Consults: - Dispo: Readmission for complicated UTI treatment. Treating with meropenem, urine culture pending. Due for neph tube exchange, last was on 02/17. Med rec pending. Discussed above with Dr. Martin. Problem List/Past Medical History Ongoing Acute kidney injury Anxiety Asthma Bilateral flank pain Cervical cancer Complicated UTI (urinary tract infection) Decreased appetite Dehydration DVT prophylaxis History of chemotherapy History of radiation therapy Left flank pain Moderate protein-calorie malnutrition Nausea and vomiting Nephrostomy status Obstructive uropathy Port-A-Cath in place Premature menopause Pyelonephritis Historical Cervicitis Chronic kidney disease, stage 3 (moderate) Encounter for antineoplastic chemotherapy ESBL (extended spectrum beta-lactamase) producing bacteria infection History of COVID-19 Hydronephrosis of left kidney Mass of cervix Tinnitus Procedure/Surgical History Nephrostomy with tube drainage: 01/10/21 JJ stent: 11/15/20 Radiation: 06/2020 Cervical biopsy: 2019 Tumor cells, benign: 2001 Nephrostomy with tube drainage Medications Home Medications (7) Active gabapentin 300 mg oral capsule 300 mg = 1 cap(s), Oral, qHS gabapentin 300 mg oral capsule 300 mg = 1 cap(s), Oral, qHS LORazepam 1 mg oral tablet 1 mg = 1 tab(s), Oral, q8h mirtazapine 15 mg oral tablet 15 mg = 1 tab(s), Oral, qDay MS Contin 30 mg/8-12 hrs oral tablet, extended release 30 mg = 1 tab(s), Oral, q12h ondansetron 4 mg oral tablet 4 mg = 1 tab(s), PRN, Oral, q6h oxyCODONE 10 mg oral tablet ( IMMEDIATE release ) 10 mg = 1 tab(s), PRN, Oral, q4h Allergies Oranges penicillin Social History Alcohol - Denies Alcohol Use, 06/13/2020 Use: Current. Type: Beer. Frequency: 1-2 times per week., 12/21/2021 Home/Environment - No Risk, 06/13/2020 Domestic Concerns: None. Living situation: Home/Independent. Safe place to go: Yes. Lives In: Mobile home, 1st floor bedroom, 1st floor bathroom. Current Home Treatments None. Professional Skilled Services or Special Community Resources None. Financial concerns: No. Marital Status: Unmarried., 06/13/2020 Nutrition/Health - No Risk, 06/13/2020 Type of diet: Regular. Appetite Fair. Eating Difficulties None. Caffeine intake amount: 1 can pop per day., 06/13/2020 Sexual Sexually active: Yes. First active at age: 18 Years. Current partners: 1. Number of lifetime partners: 7. Self described orientation: Straight or heterosexual. Other contraceptive use: condoms. History of sexual abuse: No. Gender Identity: Identifies as female., 04/12/2020 Substance Abuse - Denies Substance Abuse, 06/13/2020 Use: Never., 04/12/2020 Tobacco Nicotine Use: 5-9 cigarettes (between 1/4 to 1/2 pack)/day in last 30 days. Type: Cigarettes. Tobacco use per day: 10. Number of years: 10. Started at age: 19 Years. Previous treatment: None. Ready to change: Yes., 04/12/2020 Family History Alcohol abuse: Father. Asthma: Mother. Bladder cancer: Negative: Mother, Father, Sister, Brother, Daughter, Son and Grandparent. Breast cancer: Mother. COPD - Chronic obstructive pulmonary disease: Mother. Cancer: Sister. Diabetes: Grandparent. Heart attack: Mother. Heart disease: Mother. Hypertension: Mother. Kidney stone: Mother. Renal cancer: Negative: Mother, Father, Sister, Brother, Daughter, Son and Grandparent. Stroke: Father and Grandparent. Substance abuse: Father. Immunizations hepatitis B pediatric vaccine: 0 unknown unit (06/16/01) hepatitis B pediatric vaccine: 0 unknown unit (06/21/98) measles/mumps/rubella virus vaccine: 0 unknown unit (06/16/01) Code Status No qualifying data available. Digitally Signed by SASHA MON MD on 04/28/2023 03:41 AM [id number] Note ORIGINAL EXAMINATION: CT OF THE ABDOMEN AND PELVIS WITH CONTRAST 04/27/2023 10:29 pm TECHNIQUE: CT of the abdomen and pelvis was performed with the administration of intravenous contrast. Multiplanar reformatted images are provided for review. Automated exposure control, iterative reconstruction, and/or weight based adjustment of the mA/kV was utilized to reduce the radiation dose to as low as reasonably achievable. COMPARISON: CT abdomen pelvis 02/26/2023 HISTORY: ORDERING SYSTEM PROVIDED HISTORY: Reason for Exam: uti, abd pain, hx cervical ca with mass into kidney, nephrostomy tube placed 2019, surgery every 6 months abdominal pain FINDINGS: New sclerosis of both sacral ala, concerning for sacral insufficiency fractures. No acute soft tissue abnormality. Included lung bases are clear. Tiny subcentimeter lesions in the liver are unchanged and presumably cysts. The gallbladder, spleen, pancreas and both adrenal glands are unremarkable. Left percutaneous nephrostomy within an inferior pole calyx, as well as a double-J ureteral stent. The superior portion of the stent is within an inferior pole calyx and the inferior end is within the bladder. There is left renal cortical thinning. Subcentimeter cysts suspected in the left kidney. There is mild wall thickening and enhancement of the left renal pelvis and proximal ureter. The bladder is empty which limits evaluation. The uterus is surgically absent. There is a subtle hyperdense versus enhancing soft tissue lesion within the central pelvis measuring roughly 3.2 x 1.8 cm on image 88 of series 2 and is similar to the prior exam (when measured at the same level on the prior exam). There is a rounded area of hypodensity within lesion at the left lateral aspect. The small bowel is normal caliber without evidence of inflammatory change. There is a moderate amount of stool throughout the colon which otherwise appears unremarkable. The appendix is unremarkable. No free air or free fluid. The aorta is normal caliber. No other soft tissue lesions in the abdomen or pelvis. No lymphadenopathy. IMPRESSION: Left collecting system and proximal ureteral wall thickening and enhancement concerning for pyelitis/ascending urinary tract infection. Heterogeneous mass or complex collection in the central pelvis with an eccentric area of hypodensity. The mass is difficult to compare to the prior study but is not significantly changed. Findings presumably relate to necrotic neoplasm. Continued surveillance advised New serpiginous areas of sclerosis of both sacral ala, concerning for sacral insufficiency fractures. Consider MRI follow-up. Other chronic and incidental findings as described above. I have personally reviewed the images of this examination and agree with the resident's findings and interpretation. Interpreted by: Shahbaz Denny MD Preliminary Report By: Dora Burdick Electronically signed By Shahbaz Denny MD Dictated Date: 04/27/2023 10:30:54 PM Prelim Date: 04/27/2023 10:51:07 PM Sign Date: 04/27/2023 11:04:03 PM Ordering Provider: [facility]06-25-2023 Note ORIGINAL EXAMINATION: CT OF THE ABDOMEN AND PELVIS WITH CONTRAST 04/27/2023 10:29 pm TECHNIQUE: CT of the abdomen and pelvis was performed with the administration of intravenous contrast. Multiplanar reformatted images are provided for review. Automated exposure control, iterative reconstruction, and/or weight based adjustment of the mA/kV was utilized to reduce the radiation dose to as low as reasonably achievable. COMPARISON: CT abdomen pelvis 02/26/2023 HISTORY: ORDERING SYSTEM PROVIDED HISTORY: Reason for Exam: uti, abd pain, hx cervical ca with mass into kidney, nephrostomy tube placed 2019, surgery every 6 months abdominal pain FINDINGS: New sclerosis of both sacral ala, concerning for sacral insufficiency fractures. No acute soft tissue abnormality. Included lung bases are clear. Tiny subcentimeter lesions in the liver are unchanged and presumably cysts. The gallbladder, spleen, pancreas and both adrenal glands are unremarkable. Left percutaneous nephrostomy within an inferior pole calyx, as well as a double-J ureteral stent. The superior portion of the stent is within an inferior pole calyx and the inferior end is within the bladder. There is left renal cortical thinning. Subcentimeter cysts suspected in the left kidney. There is mild wall thickening and enhancement of the left renal pelvis and proximal ureter. The bladder is empty which limits evaluation. The uterus is surgically absent. There is a subtle hyperdense versus enhancing soft tissue lesion within the central pelvis measuring roughly 3.2 x 1.8 cm on image 88 of series 2 and is similar to the prior exam (when measured at the same level on the prior exam). There is a rounded area of hypodensity within lesion at the left lateral aspect. The small bowel is normal caliber without evidence of inflammatory change. There is a moderate amount of stool throughout the colon which otherwise appears unremarkable. The appendix is unremarkable. No free air or free fluid. The aorta is normal caliber. No other soft tissue lesions in the abdomen or pelvis. No lymphadenopathy. IMPRESSION: Left collecting system and proximal ureteral wall thickening and enhancement concerning for pyelitis/ascending urinary tract infection. Heterogeneous mass or complex collection in the central pelvis with an eccentric area of hypodensity. The mass is difficult to compare to the prior study but is not significantly changed. Findings presumably relate to necrotic neoplasm. Continued surveillance advised New serpiginous areas of sclerosis of both sacral ala, concerning for sacral insufficiency fractures. Consider MRI follow-up. Other chronic and incidental findings as described above. I have personally reviewed the images of this examination and agree with the resident's findings and interpretation. Interpreted by: Shahbaz Denny MD Preliminary Report By: Dora Burdick Electronically signed By Shahbaz Denny MD Dictated Date: 04/27/2023 10:30:54 PM Prelim Date: 04/27/2023 10:51:07 PM Sign Date: 04/27/2023 11:04:03 PM Ordering Provider: [facility]06-25-2023 History and physical note Date of Service 04/27/23 Chief Complaint Unable to uinate X 9 days. 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 History of Present Illness 32 yo Woman with history of Stage IIIB cervical cancer s/p chemoradiation currently in remission, presents to [place] emergency room for concern for UTI and flank pain. She has a known recurrent history of complicated urinary tract infection with ESBL/E. coli/Enterococcus/Klebsiella pneumonia. She was recently admitted for treatment of a E Coli UTI from 02/23-03/05 and was discharged home on 4 weeks of IV ertapenem. Today, she reports that she has been unable to void for the past 9 days and has been having increasing pelvic pain, similar in presentation to her last admission. She reports that she completed her full 4 week course of IV etrapenem as instructed after discharge but started feeling unwell approximately 1 week following the conclusion of that treatment. She also notes that over the last 9 days she has been having worsening vaginal, left flank and lower abdominal pain. Patient could not remember when last nephrostomy tube exchange was but remembered it was prior to last admission. On chart review it appears it was last done 02/17/23. For the past 5 days she has also noted increased nausea, intermittent vomiting, and overall decreased appetite. The urine in her nephrostomy tube has had a slight odor but has not had any blood in it. No rectal bleeding. Having regular bowel movements. Denies fevers, chills, chest pain, SOB. Denies hematuria. Denies vaginal bleeding or vaginal discharge. In the ER, UA was collected which showed evidence of likely UTI. Urine culture and blood cultures were collected and are pending. CT A/P was obtained which showed: Left collecting system and proximal ureteral wall thickening and enhancement concerning for pyelitis/ascending urinary tract infection. Heterogeneous mass or complex collection in the central pelvis with an eccentric area of hypodensity. The mass is difficult to compare to the prior study but is not significantly changed. Findings presumably relate to necrotic neoplasm. Continued surveillance advised. New serpiginous areas of sclerosis of both sacral ala, concerning for sacral insufficiency fractures. Consider MRI follow- up. Patient was given dose of meropenem in ER and subsequently admitted for treatment of complicated UTI. 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 Menarche age 14. Amenorrheic since initiation of Chemoradiation. Denies mammogram ever. Colonoscopy in 2020. Denies history of STDs. Not sexually active. Family History Mother with breast cancer Sister with cervical cancer Grandmother with cervical cancer Aunts with cervical cancer Cousins with cervical cancer ONCOLOGY HISTORY: - 04/04/2020: CT scan abdomen and pelvis. [facility]. Thickened cervical wall with involvementof the lower uterine segment, highly concerning for malignancy. There is involvement of the left ureter resulting in left hydronephrosis and hydroureter. Mildly enlarged right external iliac lymph node measuring 1.4 x 1.1 x 1.2 cm. - 04/13/2020: CT thorax. No evidence of active malignancy in the thorax. - 04/13/2020: IR nephrostomy tube insertion on the left. - 04/13/2020: MRI of the pelvis with contrast. Large uterine mass with extension to the pelvic fat and possible involvement of the mesorectal fascia. There is a prominent but not pathologically enlarged left pelvic lymph node which could be metastatic. Large cervical mass measuring 4.7 x 5.8 cm. - : Examination under Anesthesia, Cystourethroscopy, Cervical biopsies, Proctoscopy - 04/26/2020 Week #1 Cisplatin 40mg/m2 - 05/03/2020 Week #2 Cisplatin 20mg/m2 - 05/10/2020 Week #3 Cisplatin 20mg/m2 - 05/17/2020 Week #4 Cisplatin 20mg/m2 - 05/24/2020 Week #5 Cisplatin 20mg/m2 - 05/31/2020 Week #6 Cisplatin 20mg/m2 - 08/18/2020: CT urogram. Left percutaneous nephrostomy tube in place. Minimal left upper pole striated nephrogram. This finding is nonspecific and may be seen with inflammation or obstruction. Sincethere is no significant adjacent infiltrative changes within the perinephric fat, this could potentially be indicative of minimal left side obstruction. Improvement of the cervix lesion since the prior exam, diminished in size since prior study. - 12/07/2020 PET/CT no abnormal uptake at the uterine cervix, FDG avid lymphadenopathy or metastatic disease is seen. - 2020 CT abdomen and pelvis decreased left nephrogram with ectasia of the left upper tract and enhancement of the uroepithelium lining is worrisome for obstruction and/or infection following interval ureteral stent removal. - 01/09/2021 MRI of the pelvis treated disease with no significant residual tumor identified on this exam. Mild infiltrative change within the deep pelvic fat is presumably the result of radiation therapy, and attention to follow-up is recommended. Re-demonstration of mildly dilated left ureter and collecting system, compatible of history of pyelonephritis. RADIATION SUMMARY: Dates of treatment: 04/26/2020 - 06/07/2020 Treatment details : Initially the pelvis was treated to a dose of 4500 cGy in 25 fractions using intensity modulated radiation therapy with 6 MV photons. Following this dose the parametrium was boosted an additional 540 cGy in 3 fractions through AP PA quintero with midline block taken her final pelvic tumor dose to 5040 centigray. She was treated with concurrent cisplatin based chemotherapy. The patient then underwent for intracavitary brachii therapy applications with [id number] iridium 192afterloading device utilizing a tandem and ring. 2400 cGy was delivered at 600 cGy per fraction to point A from June 14, 2020 through July 11, 2020. The plan was to deliver 5 brachytherapy applications, however, the patient failed to show for surgery 3 times. Therefore, the decision to foregothe last treatment was made as it had been nearly 3 months since initiating therapy. Course: C1 Pelvis Treatment Site Ref. ID Energy Dose/Fx (cGy) #Fx Total Dose (cGy) Start Date End Date Elapsed Days IMRT SEAM RUBBER Pelvis 6X 180 4,500 04/26/2020 06/02/2020 37 3D PM Bst 18X 180 540 06/05/2020 06/07/2020 2 GENETIC TESTING: - Patient had genetic testing sent through [facility]. No reportable somatic or germline pathogenic or actionable mutations were found. Tumor mutational burden was 39th percentile. Microsatellite instability status stable. Somatic variants of unknown significance were found in PRKDC, TRAF3, AGUSTIN, ERBB4, and CXCR4. Variants of unknown significance and germline mutations were found in BRCA2 and RAD51C.DNA mismatch repair protein expression was normal. PD-L1 expression was positive. Review of Systems See HPI. All other review of systems are negative. Physical Exam Vitals and Measurements T: 37.2 C (Oral) HR: 86 RR: 17 BP: 138/98 SpO2: 95% WT: 63.9 kg Weight Dosing Weight: 63.9 kg (04/27/23) General Appearance: Chronically ill-appearing, resting on room air Head: Atraumatic normocephalic EENT: Moist mucous membranes Cardiopulmonary: Breathing easily on room air, no cyanosis, wheezing, accessory muscle use. Lungs clear bilaterally. RRR. Abdomen: Soft and nondistended. Mild diffuse tenderness in lower abdomen, no palpable masses or fluid wave. Back pain on palpation of flanks bilaterally. Area of nephrostomy tube is not inflamed or indurated. No pus or other suggestion of cutaneous infection. Musculoskeletal: Moving extremities appropriately Extremities: Warm, minimal edema Neurological: Alert and oriented x3 Lab Results 04/27 17:03 WBC: 8.7 Hgb: 13.1 Hct: 39.5 Platelet: 441 Neutrophil %: 62.2 Glucose Level: 94 Sodium Level: 140 Potassium Level: 3.8 BUN: 7.0 L Creatinine Lvl (s): 0.82 Imaging Results and Diagnostics CT Abd/Pelvis w/ IV Contrast Only Result Date: April 27, 2023 Verified By: TABITHA LORA, SHAHBAZ Metz CLINICAL STATEMENT: IMPRESSION: Left collecting system and proximal ureteral wall thickening and enhancementconcerning for pyelitis/ascending urinary tract infection. Heterogeneous mass or complex collection in the central pelvis with aneccentric area of hypodensity. The mass is difficult to compare to the priorstudy but is not significantly changed. Findings presumably relate tonecrotic neoplasm. Continued surveillance advised New serpiginous areas of sclerosis of both sacral ala, concerning for sacralinsufficiency fractures. Consider MRI follow-up. Other chronic and incidental findings as described above. I have personally reviewed the images of this examination and agree with theresident's findings and interpretation. EKG N/A Assessment/Plan 1. Complicated UTI (urinary tract infection) - Left nephrostomy tube in place since 02/17. - Was recently admitted for same issue from 02/23-03/05, discharged on 4 weeks of ertapenem which she completed - Urine culture from nephrostomy tube pending, UA suggestive of UTI. Refused straight cath. - Meropenem started in ER, will continue - Consider ID consultation - 02/26 CT A/P: 2.4 cm peripherally enhancing mass within the inferior central pelvis. Discussed with IR, it is the uterus with post-radiation changes. Therefore, no biopsy recommended. - 04/27 CT A/P in ER showed similar mass as prior scan. Left collecting system and proximal ureteralwall thickening concerning for pyelitis/ascending UTI. New concern for sacral insufficiency fractures. 2. Bilateral flank pain - Chronic pain due to cervical cancer - 01/01 Urogram showed no evidence of right urinary tract obstruction 3. Nephrostomy status - Last exchanged 02/17 - Consider exchange while inpatient 4. Cervical cancer - Stage IIIB SCC of cervix - S/p Chemoradiation, currently in remission - Port-A-Cath in place - 02/26 CT A/P: 2.4 cm peripherally enhancing mass within the inferior central pelvis. Discussed with IR, it is the uterus with post-radiation changes. Therefore, no biopsy recommended. - 04/27 CT A/P in ER showed similar mass as prior scan. Left collecting system and proximal ureteralwall thickening concerning for pyelitis/ascending UTI. New concern for sacral insufficiency fractures. - Pain regimen: MS Contin to 30mg BID. Oxycodone 10mg q4hrs PRN breakthrough. Gabapentin 300mg qHS. 5. Tobacco use - Nicotine patches available upon request 6. Anxiety - Continue Ativan TID PRN, medrec pending. 7. Asthma - Asymptomatic 9. Sacral lesion - New lesions seen on CT scan today - Consider bone scan or other further imaging. Admit to regular floor Condition: Stable Vitals: q8hr Activity: Up Ad Marisa Diet: Regular IVF: NS 100/hr, Meropenem 1g q8 hours DVT Prophylaxis: SCDs Consults: - Dispo: Readmission for complicated UTI treatment. Treating with meropenem, urine culture pending. Due for neph tube exchange, last was on 02/17. Med rec pending. Discussed above with Dr. Martin. Problem List/Past Medical History Ongoing Acute kidney injury Anxiety Asthma Bilateral flank pain Cervical cancer Complicated UTI (urinary tract infection) Decreased appetite Dehydration DVT prophylaxis History of chemotherapy History of radiation therapy Left flank pain Moderate protein-calorie malnutrition Nausea and vomiting Nephrostomy status Obstructive uropathy Port-A-Cath in place Premature menopause Pyelonephritis Historical Cervicitis Chronic kidney disease, stage 3 (moderate) Encounter for antineoplastic chemotherapy ESBL (extended spectrum beta-lactamase) producing bacteria infection History of COVID-19 Hydronephrosis of left kidney Mass of cervix Tinnitus Procedure/Surgical History Nephrostomy with tube drainage: 01/10/21 JJ stent: 11/15/20 Radiation: 06/2020 Cervical biopsy: 2019 Tumor cells, benign: 2001 Nephrostomy with tube drainage Medications Home Medications (7) Active gabapentin 300 mg oral capsule 300 mg = 1 cap(s), Oral, qHS gabapentin 300 mg oral capsule 300 mg = 1 cap(s), Oral, qHS LORazepam 1 mg oral tablet 1 mg = 1 tab(s), Oral, q8h mirtazapine 15 mg oral tablet 15 mg = 1 tab(s), Oral, qDay MS Contin 30 mg/8-12 hrs oral tablet, extended release 30 mg = 1 tab(s), Oral, q12h ondansetron 4 mg oral tablet 4 mg = 1 tab(s), PRN, Oral, q6h oxyCODONE 10 mg oral tablet ( IMMEDIATE release ) 10 mg = 1 tab(s), PRN, Oral, q4h Allergies Oranges penicillin Social History Alcohol - Denies Alcohol Use, 06/13/2020 Use: Current. Type: Beer. Frequency: 1-2 times per week., 12/21/2021 Home/Environment - No Risk, 06/13/2020 Domestic Concerns: None. Living situation: Home/Independent. Safe place to go: Yes. Lives In: Mobile home, 1st floor bedroom, 1st floor bathroom. Current Home Treatments None. Professional Skilled Services or Special Community Resources None. Financial concerns: No. Marital Status: Unmarried., 06/13/2020 Nutrition/Health - No Risk, 06/13/2020 Type of diet: Regular. Appetite Fair. Eating Difficulties None. Caffeine intake amount: 1 can pop per day., 06/13/2020 Sexual Sexually active: Yes. First active at age: 18 Years. Current partners: 1. Number of lifetime partners: 7. Self described orientation: Straight or heterosexual. Other contraceptive use: condoms. History of sexual abuse: No. Gender Identity: Identifies as female., 04/12/2020 Substance Abuse - Denies Substance Abuse, 06/13/2020 Use: Never., 04/12/2020 Tobacco Nicotine Use: 5-9 cigarettes (between 1/4 to 1/2 pack)/day in last 30 days. Type: Cigarettes. Tobacco use per day: 10. Number of years: 10. Started at age: 19 Years. Previous treatment: None. Ready to change: Yes., 04/12/2020 Family History Alcohol abuse: Father. Asthma: Mother. Bladder cancer: Negative: Mother, Father, Sister, Brother, Daughter, Son and Grandparent. Breast cancer: Mother. COPD - Chronic obstructive pulmonary disease: Mother. Cancer: Sister. Diabetes: Grandparent. Heart attack: Mother. Heart disease: Mother. Hypertension: Mother. Kidney stone: Mother. Renal cancer: Negative: Mother, Father, Sister, Brother, Daughter, Son and Grandparent. Stroke: Father and Grandparent. Substance abuse: Father. Immunizations hepatitis B pediatric vaccine: 0 unknown unit (06/16/01) hepatitis B pediatric vaccine: 0 unknown unit (06/21/98) measles/mumps/rubella virus vaccine: 0 unknown unit (06/16/01) Code Status No qualifying data available. Digitally Signed by SASHA MON MD on 04/28/2023 03:41 AM [id number] Hospital Discharge instructions Patient Education 03/05/2023 17:42:39 Infection Prevention in the Home Infection Prevention in the Home If you have an infection, may have been exposed to an infection, or are taking care of someone who has an infection, it is important to know how to keep the infection from spreading. Follow your health care provider's instructions and use these guidelines to help stop the spread of infection. How infections are spread In order for an infection to spread, the following must be present: A germ. This may be a virus, bacteria, fungus, or parasite. A place for the germ to live. This may be: ?On or in a person, animal, plant, or food. ?In soil or water. ?On surfaces, such as a door handle. A person or animal who can develop a disease if the germ enters the body (host). The host does not have resistance to the germ. A way for the germ to enter the host. This may occur by: ?Direct contact with an infected person or animal. This can happen through shaking hands or hugging. Some germs can also travel through the air and spread to others. This can happen when an infected person coughs or sneezes on or near other people. ?Indirect contact. This occurs when the germ enters the host through contact with an infected object. Examples include: ?Eating or drinking food or water that has the germ (is contaminated). ?Touching a contaminated surface with your hands, and then touching your face, eyes, nose, or mouth. Supplies needed: Soap. Alcohol-based hand moshgiach. Standard cleaning products. Disinfectants, such as bleach. Reusable cleaning cloths, sponges, or paper towels. Disposable or reusable utility gloves. How to prevent infection from spreading There are several things that you can do to help prevent infection from spreading. Take these general actions Everyone should take the following actions to prevent the spread of infection: Wash your hands often with soap and water for at least 20 seconds. If soap and water are not available, use alcohol-based hand moshgiach. Avoid touching your face, mouth, nose, or eyes. Cough or sneeze into a tissue, sleeve, or elbow instead of into your hand or into the air. ?If you cough or sneeze into a tissue, throw it away immediately and wash your hands. Keep your bathroom clean Provide soap. Change towels and washcloths frequently. Change toothbrushes often and store them separately in a clean, dry place. Clean and disinfect all surfaces, including the toilet, floor, tub, shower, and sink. Do not share personal items, such as razors, toothbrushes, deodorant, glover, brushes, towels, and washcloths. Maintain hygiene in the kitchen Wash your hands before and after preparing food and before you eat. Clean the inside of your refrigerator each week. Keep your refrigerator set at 40 F (4 C) or less, and set your freezer at 0 F ( 18 C) or less. Keep work surfaces clean. Disinfect them regularly. Wash your dishes in hot, soapy water. Air-dry your dishes or use a road roller engineer. Do not share dishes or eating utensils. Handle food safely Store food carefully. Refrigerate leftovers promptly in covered containers. Throw out stale or spoiled food. Thaw foods in the refrigerator or microwave, not at room temperature. Serve foods at the proper temperature. Do not eat raw meat. Make sure it is cooked to the appropriate temperature. Cook eggs until they are firm. Wash fruits and vegetables under running water. Use separate cutting boards, plates, and utensils for raw foods and cooked foods. Use a clean spoon each time you sample food while cooking. Do laundry the right way Wear gloves if laundry is visibly soiled. Do not shake soiled laundry. Doing that may send germs into the air. Wash laundry in hot water. If you cannot wash the laundry right away, place it in a plastic bag and wash it as soon as possible. Be careful around animals and pets Wash your hands before and after touching animals. If you have a pet, ensure that your pet stays clean. Do not let people with weak immune systems touch bird droppings, fish tank water, or a litter box. ?If you have a pet cage or litter box, be sure to clean it every day. If you are sick, stay away from animals and have someone else care for them if possible. How to clean and disinfect objects and surfaces Precautions Some disinfectants work for certain germs and not others. Read the family resource coordinator's instructions or read online resources to determine if the product you are using will work for the germ you are tryingto remove. If you choose to use bleach, use it safely. Never mix it with other cleaning products, especially those that contain ammonia. This mixture can create a dangerous gas that may be deadly. Keep proper movement of fresh air in your home (ventilation). Pour used mop water down the utility sink or toilet. Do not pour this water down the kitchen sink. Objects and surfaces If surfaces are visibly soiled, clean them first with soap and water before disinfecting. Disinfect surfaces that are frequently touched every day. This may include: ?Counters. ?Tables. ?Doorknobs. ?Sinks and faucets. ?Electronics, such as: ?Phones. ?Remote controls. ?Keyboards. ?Computers and tablets. Cleaning supplies Some cleaning supplies can breed germs. Take good care of them to prevent germs from spreading. To do this: Soak toilet brushes, mops, and sponges in bleach and water for 5 minutes after each use, or according to family resource coordinator's instructions. Wash reusable cleaning cloths and sanitize sponges after each use. Throw away disposable gloves after one use. Replace reusable utility gloves if they are cracked or torn or if they start to peel. Additional actions if you are sick If you live with other people: Avoid close contact with those around you. Stay at least 3 ft (1 m) away from others, if possible. Use a separate bathroom, if possible. If possible, sleep in a separate bedroom or in a separate bed to prevent infecting other household members. ?Change bedroom linens each week or whenever they are soiled. Have everyone in the household wash hands often with soap and water. If soap and water are not available, use alcohol-based hand moshgiach. In general: Stay home except to get medical care. Call ahead before visiting your health care provider. Ask others to get groceries and household supplies and to refill prescriptions for you. Avoid public areas. Try not to take public transportation. If you can, wear a mask if you need to go out of the house, or if you are in close contact with someone who is not sick. Avoid visitors until you have completely recovered, or until you have no signs and symptoms of infection. Avoid preparing food or providing care for others. If you must prepare food or provide care for others, wear a mask and wash your hands before and after doing these things. Where to find more information Centers for Disease Control and Prevention: www.cdc.gov/nonpharmaceutical-interventions/index.html World Health Organization (WHO): www.who.int/infection-prevention/about/en/ Association for Professionals in Infection Control and Epidemiology: professionals.site.apic.org/jeqmawpx-qz-zgox/qcu-tlzzeoqpez-dkugrtt/home/ Summary It is important to know how to keep the infection from spreading. Make sure everyone in your household washes their hands often with soap and water. Disinfect surfaces that are frequently touched every day. If you are sick, stay home except to get medical care. This information is not intended to replace advice given to you by your health care provider. Make sure you discuss any questions you have with your health care provider. Document Released: 07/29/2009 Document Revised: 02/15/2020 Document Reviewed: 01/14/2020 Elsevier Patient Education 2020 [employer]. Follow Up Care 02/23/2023 11:57:17 With:MARGOTH RUVALCABA BA, MD, Infectious Disease, Infectious Disease Group Address: [facility] [id number] [place] [address]- When: Unknown Comments:Call for a follow up appointment within 1 week With:OEL SUTTON MD, [facility] Address: [address] [facility] [address] [place] [address] [place] [address]- [phone] When: Unknown Comments:Call for a follow up appointment within 1 week With:[facility] Address: [address] [place], [place] [address]- [phone] When:03/10/2023 09:00:00 Comments:Go to the ambulatory unit for your once weekly labwork and port dressing change on 03/10 at 9AM With:FLIP MARTIN MD Address: [address] [place] [address] [place] [address]- [phone] When:03/05/2023 15:30:00 Comments:Follow-up at scheduled appointment on March 05 at 3:30pm or call the office sooner if problems arise. [facility] 05-03-2023 Nurse Progress note Patient went home on IV antibiotics so she needed to stay accessed with her port for delivery of said IV antibiotics. Digitally Signed by Dania Hall RN on 03/05/2023 06:51 PM [facility] [id number] Note Date of Service 03/05/2023 Chief Complaint CHRONIC CANCER RELATED PAIN, COMPLICATED UTI Subjective Patient seen and examined. No acute events overnight. She feels like her pain is decently well controlled. She apologizes for the encounter last night and appreciates us for encouraging her to stay the night. Denies nausea, vomiting, fevers, chills, no hot flashes. Objective Vitals and Measurements T: 36.9 C (Oral) TMIN: 36.7 C (Oral) TMAX: 36.9 C (Oral) HR: 93 RR: 18 BP: 122/88 SpO2: 99% Intake and Output 7AM Yesterday to 7AM Today Intake and Output (Last 24 hours) Intake Oral Intake 660.00 Administration Information 600.00 Output Urine Voided 350.00 Urostomy Output: 900.00 Stool Count 0.00 Total Summary Total Intake 1260.00 Total Output 1250.00 Fluid Balance 10.00 Left Neph Tube: 10 mL clear urine Physical Exam General: A&O x3 HEENT: normocephalic, atraumatic Cardio: RRR Lungs: Breathing w/out difficulty, no use of accessory muscles GI: Soft, non-tender, non-distended, Bowel sounds x4 Extremities: non-edematous, symmetric, + Homans sign in LLE Neuro: Normal sensation, normal DTR, 5/5 strength in lower extremeties Psychiatric: Normal affect, normal demeanor. Well groomed. Non-pressured speech. Skin: warm, no rashes. Weight Dosing Weight: 55.7 kg (02/23/23) Dosing Weight: 55.7 kg (02/23/23) Medications Medications (15) Active Scheduled: (9) bisacodyl 5 mg EC tablet 10 mg 2 tab(s), Oral, qDay enoxaparin 40 mg/ 0.4mL syringe 40 mg 0.4 mL, Subcutaneous, qDay ertapenem 1 gram(s), IV Piggyback, q24h gabapentin 300 mg Capsule 300 mg 1 cap(s), Oral, qHS mirtazapine 15 mg tablet 15 mg 1 tab(s), Oral, qDay morphine 30 mg ER tablet 30 mg 1 tab(s), Oral, q12h Nicoderm patch REMOVAL 1 EA, Miscellaneous, q24h nicotine 14 mg/24 hr ER patch 14 mg 1 patch(es), Transdermal, q24h senna 8.6 mg Tablet 17.2 mg 2 tab(s), Oral, qHS Continuous: (0) PRN: (6) LORAZEPam 1 mg Tablet 1 mg 1 tab(s), Oral, TID ondansetron 2 mg/ 1 mL 2 mL INJ 4 mg 2 mL, IV Push, q4h ondansetron 4 mg tablet 4 mg 1 tab(s), Oral, q6h oxycodone 5 mg tablet (immediate release) 10 mg 2 tab(s), Oral, q4h polyethylene glycol 3350 - UD packet 17 gram(s) 15 mL, Oral, qDay prochlorperazine 10 mg 2 mL, IV Piggyback, q6h Lab Results 03/04 04:59 WBC: 6.8 Hgb: 11.2 L Hct: 32.6 L Platelet: 400 Neutrophil %: 54.7 Glucose Level: 100 Sodium Level: 137 Potassium Level: 4.3 BUN: 9.0 Creatinine Lvl (s): 0.77 Imaging Results and Diagnostics CT Abdomen/Pelvis w/Contrast Result Date: February 26, 2023 Verified By: ALEC PEDROZA MD CLINICAL STATEMENT: IMPRESSION: 2.4 cm peripherally enhancing mass within the inferior central pelvis. This may represent a necrotic neoplasm or small abscess. Infiltration of pelvic peritoneal fat and perirectal fat may reflect inflammation, post radiation changes, or a combination of the two. Bladder wall thickeningand soft tissue inflammation compatible with known cystitis. Chronic and incidental findings as above. I have personally reviewed the images of this examination and agree with the resident's findingsand interpretation. EKG No qualifying data available. Assessment/Plan 1. Complicated UTI (urinary tract infection) - Left nephrostomy tube in place. - Received treatment with Bactrim outpatient prior to admission. - Urine culture positive for ESBL E. Coli; Culture from Neph tube NGTD - ID consulted, outpatient antibiotics recommended. - Currently on Ertapenem q24hrs. - 02/26 CT A/P: 2.4 cm peripherally enhancing mass within the inferior central pelvis. Discussed with IR, it is the uterus with post-radiation changes. Therefore, no biopsy recommended. 2. Bilateral flank pain - Chronic pain due to cervical cancer - 01/01 Urogram showed no evidence of right urinary tract obstruction - Urology consulted. For outpatient consult. 3. Nephrostomy status - Left Nephrostomy tube initially placed in 2019. - Last exchanged 02/17/2023 - Clear urine in bag - Urine culture from nephrostomy tube with NGTD. - Adequate UOP 4. Cervical cancer - Stage IIIB SCC of cervix - S/p Chemoradiation, currently in remission - Port-A-Cath in place 5. Cancer related pain - Appreciate Palliative recommendations. - MS Contin to 30mg BID - Oxycodone 10mg q4hrs PRN breakthrough. - Gabapentin 300mg qHS - Patient reported pain was better controlled last night and that she was able to sleep. 6. Tobacco use - Nicotine patches (1/2 PPD). 7. Anxiety - Continue Ativan TID PRN. - Patient upset this morning about being in pain, but reasonable 8. Asthma - Asymptomatic 9. Decreased appetite - Continue mirtazapine for appetite stimulant 10. Grief reaction - Patient has difficulty coping with her chronic illness. Refuses counseling. - Mood stable this morning - Scheduled Lexapro, Ativan PRN 11. Slow transit constipation - MiraLAX 17g daily - senna 17.2mg nightly 12. Sore throat - Improved - Resp panel negative 13. Lower extremity pain - Reports pain and weakness with weight bearing - No edema and symmetric - Refused Lovenox and not wearing SCDs - Bilateral LE dopplers negative Patient is a 32 yo woman with a history of stage IIIB cervical cancer s/p chemoradiation in remission, has a history obstructive uropathy with left nephrostomy tube in place. Admitted for pelvic pain and complicated urinary tract infection. Admit to regular floor Condition: Stable Vitals: q8hr Activity: Up Ad Marisa Diet: Regular IVF: NS 75/hr, Ertapenem 1g qd DVT Prophylaxis: SCDs, Susannah 40 qd (Refused 03/02) Consults: Palliative, Infectious Disease Dispo: Continue pain management. Continue Ertapenem. Will need outpatient IV antibiotic therapy. s/p Outpatient IV antibiotic education prior to discharge. Work on prior auth for outpatient pain medications and when for discharge home today. Digitally Signed by FARZANA CAST DO on 03/05/2023 06:40 AM [facility] [id number] Note Discharge Instructions Thank you for allowing [facility] to assist you with your healthcare needs. The following is importantdischarge information regarding your hospital visit. Your Care Team FLIP MARTIN MD Your Diagnosis Complicated UTI (urinary tract infection) Bilateral flank pain Nephrostomy status Cervical cancer Cancer related pain Tobacco use Anxiety Asthma Decreased appetite Grief reaction Slow transit constipation Sore throat Lower extremity pain Abnormal diagnostic test What to do next Instructions From Your Doctor Please continue to take stool softeners to prevent constipation. You will continue your IV antibiotics until March 14. Please call the office or go to the Emergency Department if you experience any severe pain, fever greater than 100.4'F, or persistent nausea/vomiting. Scheduled Follow-Up Appointments Appointment Type When With Where Contact InformationSO OV Follow Up 03/19/2023 03:10 PM EDT FLIP MARTIN MD [facility] [address] [place] [phone] IR Neph Cath-Neph Ureter W/Guide Left 05/12/2023 11:00 AM EDT IR Follow Up Appointments Follow Up with [facility] When 03/10/2023 09:00 AM EDT Why: Go to the ambulatory unit for your once weekly labwork and port dressing change on 03/10 at 9AM Where: [address] [place] [address]- [phone] Follow Up with FLIP MARTIN MD When 03/05/2023 03:30 PM EDT Why: Follow-up at scheduled appointment on March 05 at 3:30pm or call the office sooner if problems arise. Where: [address] [place] [address] [place] [address]- [phone] Follow Up with MARGOTH RUVALCABA BA, MD, Infectious Disease, Infectious Disease Group When Why: Call for a follow up appointment within 1 week Where: [facility] [id number] [place] [address]- Follow Up with OLE SUTTON MD, [facility] When Why: Call for a follow up appointment within 1 week Where: [address] [facility] [address] [place] [address] [phone] The Following Activity and Diet Have Been Ordered for You No qualifying data available. Discharge Diet - Ordered -- No changes were made to your diet during your hospital stay. Please resume your pre hospitalization diet on discharge., 03/05/23 17:29:00 EDT The Following Equipment Has Been Ordered for You Discharge Home Equipment Discharge Communication Order - Ordered -- Please have chest port flushed with normal saline once a week alongside chest port dressing changes once a week as well., 02/28/23 13:48:00 EDT The Following Treatments Have Been Ordered for You Discharge Labs No qualifying data available. Discharge Radiology No qualifying data available. Other Therapies No qualifying data available. Post Acute Orders No qualifying data available. Someone Will Contact You Regarding These Home Health Referrals No home referrals have been ordered for you. No one will call you. Allergies Oranges penicillin Medications Please ask your primary doctor or pharmacist before taking any other medication not listed, including over the counter drugs, herbal medications, vitamins and or supplements as they may interact withyour home medications. What How Much When Why Instructions Last Dose Changed oxyCODONE (oxyCODONE 10 mg oral tablet ( IMMEDIATE release )) 1 tab(s) by mouth Every 6 hours as needed for for pain Cervical cancer Cancer related pain Duration: 30 Days Changed oxyCODONE (oxyCODONE 10 mg oral tablet ( IMMEDIATE release )) 1 tab(s) by mouth Every 4 hours as needed for as needed for pain Cervical cancer Cancer related pain Duration: 30 Days Unchanged gabapentin (gabapentin 300 mg oral capsule) 1 cap by mouth Daily at bedtime Unchanged LORazepam (Ativan 1 mg oral tablet) 1 tab(s) by mouth Three (3) times a day as needed for as needed for anxiety Cervical cancer Anxiety Duration: 30 Days Unchanged mirtazapine (mirtazapine 15 mg oral tablet) 1 tab(s) by mouth Once a day Unchanged morphine (MS Contin 30 mg/ 8-12 hrs oral tablet, extended release) 1 tab(s) by mouth Every 12 hours Cervical cancer Cancer related pain Unchanged ondansetron (ondansetron 4 mg oral tablet) 1 tab(s) by mouth Every 6 hours as needed for Nausea/Vomiting Duration: 30 Days Please take this list to your next doctor s visit. Bring all medications you take, including over the counter medications, herbals and other supplements with you to your doctor s visit. Patients and families are reminded to discard old lists and to update any records with all medication providers or retail pharmacies. Education Materials Infection Prevention in the Home If you have an infection, may have been exposed to an infection, or are taking care of someone who has an infection, it is important to know how to keep the infection from spreading. Follow your health care provider's instructions and use these guidelines to help stop the spread of infection. How infections are spread In order for an infection to spread, the following must be present: A germ. This may be a virus, bacteria, fungus, or parasite. A place for the germ to live. This may be: ? On or in a person, animal, plant, or food. ? In soil or water. ? On surfaces, such as a door handle. A person or animal who can develop a disease if the germ enters the body (host). The host does not have resistance to the germ. A way for the germ to enter the host. This may occur by: ? Direct contact with an infected person or animal. This can happen through shaking hands or hugging.Some germs can also travel through the air and spread to others. This can happen when an infected person coughs or sneezes on or near other people. ? Indirect contact. This occurs when the germ enters the host through contact with an infected object. Examples include: ? Eating or drinking food or water that has the germ (is contaminated). ? Touching a contaminated surface with your hands, and then touching your face, eyes, nose, or mouth. Supplies needed: Soap. Alcohol-based hand moshgiach. Standard cleaning products. Disinfectants, such as bleach. Reusable cleaning cloths, sponges, or paper towels. Disposable or reusable utility gloves. How to prevent infection from spreading There are several things that you can do to help prevent infection from spreading. Take these general actions Everyone should take the following actions to prevent the spread of infection: Wash your hands often with soap and water for at least 20 seconds. If soap and water are not available, use alcohol-based hand moshgiach. Avoid touching your face, mouth, nose, or eyes. Cough or sneeze into a tissue, sleeve, or elbow instead of into your hand or into the air. ? If you cough or sneeze into a tissue, throw it away immediately and wash your hands. Keep your bathroom clean Provide soap. Change towels and washcloths frequently. Change toothbrushes often and store them separately in a clean, dry place. Clean and disinfect all surfaces, including the toilet, floor, tub, shower, and sink. Do not share personal items, such as razors, toothbrushes, deodorant, glover, brushes, towels, and washcloths. Maintain hygiene in the kitchen Wash your hands before and after preparing food and before you eat. Clean the inside of your refrigerator each week. Keep your refrigerator set at 40 F (4 C) or less, and set your freezer at 0 F ( 18 C) or less. Keep work surfaces clean. Disinfect them regularly. Wash your dishes in hot, soapy water. Air-dry your dishes or use a road roller engineer. Do not share dishes or eating utensils. Handle food safely Store food carefully. Refrigerate leftovers promptly in covered containers. Throw out stale or spoiled food. Thaw foods in the refrigerator or microwave, not at room temperature. Serve foods at the proper temperature. Do not eat raw meat. Make sure it is cooked to the appropriate temperature. Cook eggs until they are firm. Wash fruits and vegetables under running water. Use separate cutting boards, plates, and utensils for raw foods and cooked foods. Use a clean spoon each time you sample food while cooking. Do laundry the right way Wear gloves if laundry is visibly soiled. Do not shake soiled laundry. Doing that may send germs into the air. Wash laundry in hot water. If you cannot wash the laundry right away, place it in a plastic bag and wash it as soon as possible. Be careful around animals and pets Wash your hands before and after touching animals. If you have a pet, ensure that your pet stays clean. Do not let people with weak immune systems touch bird droppings, fish tank water, or a litter box. ? If you have a pet cage or litter box, be sure to clean it every day. If you are sick, stay away from animals and have someone else care for them if possible. How to clean and disinfect objects and surfaces Precautions Some disinfectants work for certain germs and not others. Read the family resource coordinator's instructions or read online resources to determine if the product you are using will work for the germ you are tryingto remove. If you choose to use bleach, use it safely. Never mix it with other cleaning products, especially those that contain ammonia. This mixture can create a dangerous gas that may be deadly. Keep proper movement of fresh air in your home (ventilation). Pour used mop water down the utility sink or toilet. Do not pour this water down the kitchen sink. Objects and surfaces If surfaces are visibly soiled, clean them first with soap and water before disinfecting. Disinfect surfaces that are frequently touched every day. This may include: ? Counters. ? Tables. ? Doorknobs. ? Sinks and faucets. ? Electronics, such as: ? Phones. ? Remote controls. ? Keyboards. ? Computers and tablets. Cleaning supplies Some cleaning supplies can breed germs. Take good care of them to prevent germs from spreading. To do this: Soak toilet brushes, mops, and sponges in bleach and water for 5 minutes after each use, or according to family resource coordinator's instructions. Wash reusable cleaning cloths and sanitize sponges after each use. Throw away disposable gloves after one use. Replace reusable utility gloves if they are cracked or torn or if they start to peel. Additional actions if you are sick If you live with other people: Avoid close contact with those around you. Stay at least 3 ft (1 m) away from others, if possible. Use a separate bathroom, if possible. If possible, sleep in a separate bedroom or in a separate bed to prevent infecting other household members. ? Change bedroom linens each week or whenever they are soiled. Have everyone in the household wash hands often with soap and water. If soap and water are not available, use alcohol-based hand moshgiach. In general: Stay home except to get medical care. Call ahead before visiting your health care provider. Ask others to get groceries and household supplies and to refill prescriptions for you. Avoid public areas. Try not to take public transportation. If you can, wear a mask if you need to go out of the house, or if you are in close contact with someone who is not sick. Avoid visitors until you have completely recovered, or until you have no signs and symptoms of infection. Avoid preparing food or providing care for others. If you must prepare food or provide care for others, wear a mask and wash your hands before and after doing these things. Where to find more information Centers for Disease Control and Prevention: www.cdc.gov/nonpharmaceutical-interventions/index.html World Health Organization (WHO): www.who.int/infection-prevention/about/en/ Association for Professionals in Infection Control and Epidemiology: professionals.site.apic.org/phayqktc-at-kbgz/wed-cvserqgxir-veznztm/home/ Summary It is important to know how to keep the infection from spreading. Make sure everyone in your household washes their hands often with soap and water. Disinfect surfaces that are frequently touched every day. If you are sick, stay home except to get medical care. This information is not intended to replace advice given to you by your health care provider. Make sure you discuss any questions you have with your health care provider. Document Released: 07/29/2009 Document Revised: 02/15/2020 Document Reviewed: 01/14/2020 Elsevier Patient Education 2020 [employer] Additional Information VACCINATE! IT SAVES LIVES! Members of the community who have not yet received the COVID-19 vaccine and would like to receive it can visit one of [facility] vaccine clinics. There are many vaccine clinic locations within the [facility]. For locations and available times, please visit https://gettheshot.coronavirus.[place].gov/. It is important to note that some COVID mobile vaccine clinics are held outdoors and may be canceled in rainy or stormy conditions. To learn more about pediatric vaccinations (ages 5-11), we invite you to visit the [facility] webpage. https://www.[facility].org/pages/1525-Ksyiu-Lzpsmajfelb-Tqaxntyqav-Jtoac-Yho stions.htmlTo learn more about the COVID-19 vaccine, we invite you to visit the CDC website for a list of frequently asked questions. https://www.cdc.gov/coronavirus/2019-ncov/vaccines/faq.html [place] [facility] [employer] Patient Portal Access Instructions: Stay connected with your healthcare team and access your personal medical information anytime with the [facility] Patient Portal.If you would like a full copy of your medical records, please contact the [facility] Medical Records Department, Friday through Friday between 8a.m. and 4:30p.m. Please follow the directions below to access the portal: 1.Access the email account you provided upon registration to the [facility].2.Look for an invitation email from [facility].3.Open the email and access the invitation link: Accept Invitation to [facility]4.Fill in the required quintero to create your account. Sign into [email or web address] with your username and password that you created in the above steps to stay up to date. You can then view a summary of results, a summary of your visits, and the ability to download your summaries to your computer or send the information securely to a physician. Remember that your healthcare information is confidential, so carefully consider who you will allow to register on the [facility] Patient Portal for access to your information. You can also access the [facility] Patient Portal on the Laguo joya. Simply click on Health Records under [place] and then click on the [employer] logo. HOW TO SAFELY DISPOSE OF PRESCRIPTION MEDICATIONS Please use one of the following methods to safely dispose of your unused medications. 1.Use a drug disposal kit: the drug disposal pouch allows you to safely discard your old and unuseddrugs. Ask your nurse to give you one when you are discharged.2.Visit a local take-back location: Many local pharmacies and police departments have programs that collect old and unwanted prescriptiondrugs. Call your local pharmacy or go to http://Wishabi.ConsumerBell/4Q2Zl5y to find one close to you.3.Make use of household items: Use cat litter or old coffee grounds to dispose medications if other options arenot available. Mix your drugs with these household products, seal them in an airtight container andthrow it into the garbage. Call [facility]: [phone] to be sure your drugs can be disposed of in this way. Some medicines may require a different approach.4.Never flush your medications down the toilet. IF YOU HAVE BEEN PRESCRIBED AN OPIOID FOR PAIN If you have been prescribed an opioid (such as hydrocodone, oxycodone or morphine), it is critical to understand the possible side effects and risks of opioid pain medications. Even when taken as directed, opioids can have several side effects including: Tolerance, meaning you might need to take more of a medication for the same pain relief. Nausea, vomiting and/or constipation. Sleepiness, dizziness, dry mouth, confusion, depression or itching. Physical dependence, meaning you have withdrawal symptoms when a medication is stopped, can develop within a few days. KNOW YOUR RESPONSIBILITIES It is important to know exactly how much and how often to take the opioid pain medications you are prescribed. Never take opioids in higher amounts or more often than prescribed. Do not combine opioids with alcohol or other drugs that cause drowsiness, such as benzodiazepines, also known as benzos, including diazepam and alprazolam, muscle relaxants or sleep aids. Never sell or share prescription opioids. This is illegal. Store opioids in a secure place and out of reach of others (including children, family, friends and visitors). The last page of this document has been signed and retained as a CHART COPY. Signatures Patient Education Materials Infection Prevention in the Home Medication Leaflets My discharge plan and instructions have been reviewed and explained to me and I,LALY NAVAS understand my current condition and have read and understand these discharge instructions. I have received a written copy of the plan/instructions. If I have questions, I am aware that I should contact my doctor. 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 No acute events overnight. She feels like her pain is decently well controlled. She apologizes for the encounter last night and appreciates us for encouraging her to stay the night. Denies nausea, vomiting, fevers, chills, no hot flashes. Objective Vitals and Measurements T: 36.9 C (Oral) TMIN: 36.7 C (Oral) TMAX: 36.9 C (Oral) HR: 93 RR: 18 BP: 122/88 SpO2: 99% Intake and Output 7AM Yesterday to 7AM Today Intake and Output (Last 24 hours) Intake Oral Intake 660.00 Administration Information 600.00 Output Urine Voided 350.00 Urostomy Output: 900.00 Stool Count 0.00 Total Summary Total Intake 1260.00 Total Output 1250.00 Fluid Balance 10.00 Left Neph Tube: 10 mL clear urine Physical Exam General: A&O x3 HEENT: normocephalic, atraumatic Cardio: RRR Lungs: Breathing w/out difficulty, no use of accessory muscles GI: Soft, non-tender, non-distended, Bowel sounds x4 Extremities: non-edematous, symmetric, + Homans sign in LLE Neuro: Normal sensation, normal DTR, 5/5 strength in lower extremeties Psychiatric: Normal affect, normal demeanor. Well groomed. Non-pressured speech. Skin: warm, no rashes. Weight Dosing Weight: 55.7 kg (02/23/23) Dosing Weight: 55.7 kg (02/23/23) Medications Medications (15) Active Scheduled: (9) bisacodyl 5 mg EC tablet 10 mg 2 tab(s), Oral, qDay enoxaparin 40 mg/ 0.4mL syringe 40 mg 0.4 mL, Subcutaneous, qDay ertapenem 1 gram(s), IV Piggyback, q24h gabapentin 300 mg Capsule 300 mg 1 cap(s), Oral, qHS mirtazapine 15 mg tablet 15 mg 1 tab(s), Oral, qDay morphine 30 mg ER tablet 30 mg 1 tab(s), Oral, q12h Nicoderm patch REMOVAL 1 EA, Miscellaneous, q24h nicotine 14 mg/24 hr ER patch 14 mg 1 patch(es), Transdermal, q24h senna 8.6 mg Tablet 17.2 mg 2 tab(s), Oral, qHS Continuous: (0) PRN: (6) LORAZEPam 1 mg Tablet 1 mg 1 tab(s), Oral, TID ondansetron 2 mg/ 1 mL 2 mL INJ 4 mg 2 mL, IV Push, q4h ondansetron 4 mg tablet 4 mg 1 tab(s), Oral, q6h oxycodone 5 mg tablet (immediate release) 10 mg 2 tab(s), Oral, q4h polyethylene glycol 3350 - UD packet 17 gram(s) 15 mL, Oral, qDay prochlorperazine 10 mg 2 mL, IV Piggyback, q6h Lab Results 03/04 04:59 WBC: 6.8 Hgb: 11.2 L Hct: 32.6 L Platelet: 400 Neutrophil %: 54.7 Glucose Level: 100 Sodium Level: 137 Potassium Level: 4.3 BUN: 9.0 Creatinine Lvl (s): 0.77 Imaging Results and Diagnostics CT Abdomen/Pelvis w/Contrast Result Date: February 26, 2023 Verified By: ALEC PEDROZA MD CLINICAL STATEMENT: IMPRESSION: 2.4 cm peripherally enhancing mass within the inferior central pelvis. This may represent a necrotic neoplasm or small abscess. Infiltration of pelvic peritoneal fat and perirectal fat may reflect inflammation, post radiation changes, or a combination of the two. Bladder wall thickeningand soft tissue inflammation compatible with known cystitis. Chronic and incidental findings as above. I have personally reviewed the images of this examination and agree with the resident's findingsand interpretation. EKG No qualifying data available. Assessment/Plan 1. Complicated UTI (urinary tract infection) - Left nephrostomy tube in place. - Received treatment with Bactrim outpatient prior to admission. - Urine culture positive for ESBL E. Coli; Culture from Neph tube NGTD - ID consulted, outpatient antibiotics recommended. - Currently on Ertapenem q24hrs. - 02/26 CT A/P: 2.4 cm peripherally enhancing mass within the inferior central pelvis. Discussed with IR, it is the uterus with post-radiation changes. Therefore, no biopsy recommended. 2. Bilateral flank pain - Chronic pain due to cervical cancer - 01/01 Urogram showed no evidence of right urinary tract obstruction - Urology consulted. For outpatient consult. 3. Nephrostomy status - Left Nephrostomy tube initially placed in 2019. - Last exchanged 02/17/2023 - Clear urine in bag - Urine culture from nephrostomy tube with NGTD. - Adequate UOP 4. Cervical cancer - Stage IIIB SCC of cervix - S/p Chemoradiation, currently in remission - Port-A-Cath in place 5. Cancer related pain - Appreciate Palliative recommendations. - MS Contin to 30mg BID - Oxycodone 10mg q4hrs PRN breakthrough. - Gabapentin 300mg qHS - Patient reported pain was better controlled last night and that she was able to sleep. 6. Tobacco use - Nicotine patches (1/2 PPD). 7. Anxiety - Continue Ativan TID PRN. - Patient upset this morning about being in pain, but reasonable 8. Asthma - Asymptomatic 9. Decreased appetite - Continue mirtazapine for appetite stimulant 10. Grief reaction - Patient has difficulty coping with her chronic illness. Refuses counseling. - Mood stable this morning - Scheduled Lexapro, Ativan PRN 11. Slow transit constipation - MiraLAX 17g daily - senna 17.2mg nightly 12. Sore throat - Improved - Resp panel negative 13. Lower extremity pain - Reports pain and weakness with weight bearing - No edema and symmetric - Refused Lovenox and not wearing SCDs - Bilateral LE dopplers negative Patient is a 32 yo woman with a history of stage IIIB cervical cancer s/p chemoradiation in remission, has a history obstructive uropathy with left nephrostomy tube in place. Admitted for pelvic pain and complicated urinary tract infection. Admit to regular floor Condition: Stable Vitals: q8hr Activity: Up Ad Marisa Diet: Regular IVF: NS 75/hr, Ertapenem 1g qd DVT Prophylaxis: SCDs, Susannah 40 qd (Refused 03/02) Consults: Palliative, Infectious Disease Dispo: Continue pain management. Continue Ertapenem. Will need outpatient IV antibiotic therapy. s/p Outpatient IV antibiotic education prior to discharge. Work on prior auth for outpatient pain medications and when for discharge home today. Digitally Signed by FARZANA CAST DO on 03/05/2023 06:40 AM [facility] [id number] Note Date of Service 03/05/2023 Chief Complaint CHRONIC CANCER RELATED PAIN, COMPLICATED UTI Subjective Patient seen and examined. No acute events overnight. She feels like her pain is decently well controlled. She apologizes for the encounter last night and appreciates us for encouraging her to stay the night. Denies nausea, vomiting, fevers, chills, no hot flashes. Objective Vitals and Measurements T: 36.9 C (Oral) TMIN: 36.7 C (Oral) TMAX: 36.9 C (Oral) HR: 93 RR: 18 BP: 122/88 SpO2: 99% Intake and Output 7AM Yesterday to 7AM Today Intake and Output (Last 24 hours) Intake Oral Intake 660.00 Administration Information 600.00 Output Urine Voided 350.00 Urostomy Output: 900.00 Stool Count 0.00 Total Summary Total Intake 1260.00 Total Output 1250.00 Fluid Balance 10.00 Left Neph Tube: 10 mL clear urine Physical Exam General: A&O x3 HEENT: normocephalic, atraumatic Cardio: RRR Lungs: Breathing w/out difficulty, no use of accessory muscles GI: Soft, non-tender, non-distended, Bowel sounds x4 Extremities: non-edematous, symmetric, + Homans sign in LLE Neuro: Normal sensation, normal DTR, 5/5 strength in lower extremeties Psychiatric: Normal affect, normal demeanor. Well groomed. Non-pressured speech. Skin: warm, no rashes. Weight Dosing Weight: 55.7 kg (02/23/23) Dosing Weight: 55.7 kg (02/23/23) Medications Medications (15) Active Scheduled: (9) bisacodyl 5 mg EC tablet 10 mg 2 tab(s), Oral, qDay enoxaparin 40 mg/ 0.4mL syringe 40 mg 0.4 mL, Subcutaneous, qDay ertapenem 1 gram(s), IV Piggyback, q24h gabapentin 300 mg Capsule 300 mg 1 cap(s), Oral, qHS mirtazapine 15 mg tablet 15 mg 1 tab(s), Oral, qDay morphine 30 mg ER tablet 30 mg 1 tab(s), Oral, q12h Nicoderm patch REMOVAL 1 EA, Miscellaneous, q24h nicotine 14 mg/24 hr ER patch 14 mg 1 patch(es), Transdermal, q24h senna 8.6 mg Tablet 17.2 mg 2 tab(s), Oral, qHS Continuous: (0) PRN: (6) LORAZEPam 1 mg Tablet 1 mg 1 tab(s), Oral, TID ondansetron 2 mg/ 1 mL 2 mL INJ 4 mg 2 mL, IV Push, q4h ondansetron 4 mg tablet 4 mg 1 tab(s), Oral, q6h oxycodone 5 mg tablet (immediate release) 10 mg 2 tab(s), Oral, q4h polyethylene glycol 3350 - UD packet 17 gram(s) 15 mL, Oral, qDay prochlorperazine 10 mg 2 mL, IV Piggyback, q6h Lab Results 03/04 04:59 WBC: 6.8 Hgb: 11.2 L Hct: 32.6 L Platelet: 400 Neutrophil %: 54.7 Glucose Level: 100 Sodium Level: 137 Potassium Level: 4.3 BUN: 9.0 Creatinine Lvl (s): 0.77 Imaging Results and Diagnostics CT Abdomen/Pelvis w/Contrast Result Date: February 26, 2023 Verified By: ADAM LORA, ALEC Huitron CLINICAL STATEMENT: IMPRESSION: 2.4 cm peripherally enhancing mass within the inferior central pelvis. This may represent a necrotic neoplasm or small abscess. Infiltration of pelvic peritoneal fat and perirectal fat may reflect inflammation, post radiation changes, or a combination of the two. Bladder wall thickeningand soft tissue inflammation compatible with known cystitis. Chronic and incidental findings as above. I have personally reviewed the images of this examination and agree with the resident's findingsand interpretation. EKG No qualifying data available. Assessment/Plan 1. Complicated UTI (urinary tract infection) - Left nephrostomy tube in place. - Received treatment with Bactrim outpatient prior to admission. - Urine culture positive for ESBL E. Coli; Culture from Neph tube NGTD - ID consulted, outpatient antibiotics recommended. - Currently on Ertapenem q24hrs. - 02/26 CT A/P: 2.4 cm peripherally enhancing mass within the inferior central pelvis. Discussed with IR, it is the uterus with post-radiation changes. Therefore, no biopsy recommended. 2. Bilateral flank pain - Chronic pain due to cervical cancer - 01/01 Urogram showed no evidence of right urinary tract obstruction - Urology consulted. For outpatient consult. 3. Nephrostomy status - Left Nephrostomy tube initially placed in 2019. - Last exchanged 02/17/2023 - Clear urine in bag - Urine culture from nephrostomy tube with NGTD. - Adequate UOP 4. Cervical cancer - Stage IIIB SCC of cervix - S/p Chemoradiation, currently in remission - Port-A-Cath in place 5. Cancer related pain - Appreciate Palliative recommendations. - MS Contin to 30mg BID - Oxycodone 10mg q4hrs PRN breakthrough. - Gabapentin 300mg qHS - Patient reported pain was better controlled last night and that she was able to sleep. 6. Tobacco use - Nicotine patches (1/2 PPD). 7. Anxiety - Continue Ativan TID PRN. - Patient upset this morning about being in pain, but reasonable 8. Asthma - Asymptomatic 9. Decreased appetite - Continue mirtazapine for appetite stimulant 10. Grief reaction - Patient has difficulty coping with her chronic illness. Refuses counseling. - Mood stable this morning - Scheduled Lexapro, Ativan PRN 11. Slow transit constipation - MiraLAX 17g daily - senna 17.2mg nightly 12. Sore throat - Improved - Resp panel negative 13. Lower extremity pain - Reports pain and weakness with weight bearing - No edema and symmetric - Refused Lovenox and not wearing SCDs - Bilateral LE dopplers negative Patient is a 32 yo woman with a history of stage IIIB cervical cancer s/p chemoradiation in remission, has a history obstructive uropathy with left nephrostomy tube in place. Admitted for pelvic pain and complicated urinary tract infection. Admit to regular floor Condition: Stable Vitals: q8hr Activity: Up Ad Marisa Diet: Regular IVF: NS 75/hr, Ertapenem 1g qd DVT Prophylaxis: SCDs, Susannah 40 qd (Refused 03/02) Consults: Palliative, Infectious Disease Dispo: Continue pain management. Continue Ertapenem. Will need outpatient IV antibiotic therapy. s/p Outpatient IV antibiotic education prior to discharge. Work on prior auth for outpatient pain medications and when for discharge home today. Digitally Signed by FARZANA CAST DO on 03/05/2023 06:40 AM [id number] Note Date of Service 03/04/2023 Chief Complaint CHRONIC CANCER RELATED PAIN, COMPLICATED UTI Subjective Patient seen and evaluated. No acute events overnight. after poor pain control yesterday evening, she reports pain overnight was better although she still feels as though she is getting doses late but feels that her care much much improved overnight compared to yesterday. She does still endorse pain in her LLQ and left flank. She feels that her avg pain scale throughout the day is 7/10. Denies fevers/chills, CP, SOB. Did have nausea over past several days with occasional emesis. Objective Vitals and Measurements T: 36.6 C (Oral) TMIN: 36.6 C (Oral) TMAX: 36.8 C (Oral) HR: 89 RR: 18 BP: 121/75 SpO2: 98% Intake and Output 7AM Yesterday to 7AM Today Intake and Output (Last 24 hours) Intake Administration Information 1800.00 Oral Intake 530.00 Output Urine Voided 650.00 Urostomy Output: 4300.00 Stool Count 0.00 Emesis Count 0.00 Total Summary Total Intake 2330.00 Total Output 4950.00 Fluid Balance -2620.00 Physical Exam General: A&O x3 HEENT: normocephalic, atraumatic Cardio: RRR Lungs: Breathing w/out difficulty, no use of accessory muscles GI: Soft, non-tender, non-distended, Bowel sounds x4 Extremities: non-edematous, symmetric, + Homans sign in LLE Neuro: Normal sensation, normal DTR, 5/5 strength in lower extremeties Psychiatric: Normal affect, normal demeanor. Well groomed. Non-pressured speech. Skin: warm, no rashes. Weight Dosing Weight: 55.7 kg (02/23/23) Dosing Weight: 55.7 kg (02/23/23) Medications Medications (15) Active Scheduled: (8) enoxaparin 40 mg/ 0.4mL syringe 40 mg 0.4 mL, Subcutaneous, qDay ertapenem 1 gram(s), IV Piggyback, q24h gabapentin 300 mg Capsule 300 mg 1 cap(s), Oral, qHS mirtazapine 15 mg tablet 15 mg 1 tab(s), Oral, qDay morphine 30 mg ER tablet 30 mg 1 tab(s), Oral, q12h Nicoderm patch REMOVAL 1 EA, Miscellaneous, q24h nicotine 14 mg/24 hr ER patch 14 mg 1 patch(es), Transdermal, q24h senna 8.6 mg Tablet 17.2 mg 2 tab(s), Oral, qHS Continuous: (1) NS (0.9% nacl) 1,000 mL 1,000 mL, Intravenous, 75 mL/hr PRN: (6) LORAZEPam 1 mg Tablet 1 mg 1 tab(s), Oral, TID ondansetron 2 mg/ 1 mL 2 mL INJ 4 mg 2 mL, IV Push, q4h ondansetron 4 mg tablet 4 mg 1 tab(s), Oral, q6h oxycodone 5 mg tablet (immediate release) 10 mg 2 tab(s), Oral, q4h polyethylene glycol 3350 - UD packet 17 gram(s) 15 mL, Oral, qDay prochlorperazine 10 mg 2 mL, IV Piggyback, q6h Lab Results 03/04 04:59 WBC: 6.8 Hgb: 11.2 L Hct: 32.6 L Platelet: 400 Neutrophil %: 54.7 Glucose Level: 100 Sodium Level: 137 Potassium Level: 4.3 BUN: 9.0 Creatinine Lvl (s): 0.77 Glucose: 100 Cl: 106 CO2 27 cCa: 10 Ma.8 Phos: 4.7 Alb: 2.5 TBili: 0.2 AST/ALT: 36/36 05 04:48 WBC: 6.6 Hgb: 10.7 L Hct: 31.7 L Platelet: 420 Neutrophil %: 52.9 Glucose Level: 92 Sodium Level: 138 Potassium Level: 4.5 BUN: 7.0 L Creatinine Lvl (s): 0.72 Imaging Results and Diagnostics CT Abdomen/Pelvis w/Contrast Result Date: February 26, 2023 Verified By: ADAM LORA, ALEC Huitron CLINICAL STATEMENT: IMPRESSION: 2.4 cm peripherally enhancing mass within the inferior central pelvis. Thismay represent a necrotic neoplasm or small abscess. Infiltration of pelvicperitoneal fat and perirectal fat may reflect inflammation, post radiationchanges, or a combination of the two. Bladder wall thickening and soft tissue inflammation compatible with knowncystitis. Chronic and incidental findings as above. I have personally reviewed the images of this examination and agree with theresident's findings and interpretation. EKG No qualifying data available. Assessment/Plan 1. Complicated UTI (urinary tract infection) - Left nephrostomy tube in place. - Received treatment with Bactrim outpatient prior to admission. - Urine culture positive for ESBL E. Coli; Culture from Neph tube NGTD - ID consulted, outpatient antibiotics recommended. - Currently on Ertapenem q24hrs. - 02/26 CT A/P: 2.4 cm peripherally enhancing mass within the inferior central pelvis. Discussed with IR, it is the uterus with post-radiation changes. Therefore, no biopsy recommended. 2. Bilateral flank pain - Chronic pain due to cervical cancer - 01/01 Urogram showed no evidence of right urinary tract obstruction - Urology consulted. For outpatient consult. 3. Nephrostomy status - Left Nephrostomy tube initially placed in 2019. - Last exchanged 02/17/2023 - Clear urine in bag - Urine culture from nephrostomy tube with NGTD. - Adequate UOP 4. Cervical cancer - Stage IIIB SCC of cervix - S/p Chemoradiation, currently in remission - Port-A-Cath in place 5. Cancer related pain - Appreciate Palliative recommendations. - Increased MS Contin to 30mg BID - Oxycodone 10mg q4hrs PRN breakthrough. - Gabapentin 300mg qHS - Patient still reporting pain poorly controlled with avg pain scale of 7/10 6. Tobacco use - Nicotine patches (1/2 PPD). 7. Anxiety - Continue Ativan TID PRN. - Patient upset this morning about being in pain, but reasonable 8. Asthma - Asymptomatic 9. Decreased appetite - Continue mirtazapine for appetite stimulant 10. Grief reaction - Patient has difficulty coping with her chronic illness. Refuses counseling. - Mood stable this morning - Scheduled Lexapro, Ativan PRN 11. Slow transit constipation - MiraLAX 17g daily - senna 17.2mg nightly 12. Sore throat - Improved - Resp panel negative 13. Lower extremity pain - Reports pain and weakness with weight bearing - No edema and symmetric - Refused Lovenox and not wearing SCDs - Bilateral LE dopplers negative Orders: nicotine, Start: 03/03/23 13:00:00 EDT, Dose = 1 patch(es), ER Film, Transdermal, q24h, 14 day(s), Stop: 03/16/23 13:00:00 EDT, 03/03/23 12:54:00 EDT nicotine (Nicoderm Patch REMOVAL), Start: 03/04/23 13:00:00 EDT, q24h, 03/04/23 12:54:00 EDT Consult to Palliative Care SCD Machine ([id number]) SCD Sleeves - Knee ([id number]) Patient is a 32 yo woman with a history of stage IIIB cervical cancer s/p chemoradiation in remission, has a history obstructive uropathy with left nephrostomy tube in place. Admitted for pelvic pain and complicated urinary tract infection. Admit to regular floor Condition: Stable Vitals: q8hr Activity: Up Ad Marisa Diet: Regular IVF: NS 75/hr, Ertapenem 1g qd DVT Prophylaxis: SCDs, Susannah 40 qd (Refused 03/02) Consults: Palliative, Infectious Disease Dispo: Continue pain management. Continue Ertapenem. Will need outpatient IV antibiotic therapy. Outpatient IV antibiotic education prior to discharge. Reconsult palliative for patient reported uncontrolled pain Digitally Signed by FARZANA CAST DO on 03/04/2023 06:43 AM [facility] [id number] Palliative care Progress note Date of Service 03/04/2023 Code Status Code Status - Ordered -- 02/23/23 16:01:00 EDT, Full Code, Constant Order Chief Complaint Abdominal pain, flank pain History of Present Illness Last documented bowel movement 427 the patient reports last bowel movement last night. Was hard andshe had to strain to defecate. She reports her pain is relatively unchanged with the previous medication regimen. She continues to take gabapentin but is unsure whether or not it provides her with any additional relief. She feels that she is no longer receiving benefit from oxycodone immediate release. She does not notice that her pain is worse in the middle of the day. She reports that her pain is stabbing in nature in her abdomen and her flank and sometimes radiates to her urethra. She does not notice any neuropathic pain symptoms including shooting pain, numbness, tingling. She denies nausea. Medications Medications (17) Active Scheduled: (10) bisacodyl 5 mg EC tablet 10 mg 2 tab(s), Oral, qDay enoxaparin 40 mg/ 0.4mL syringe 40 mg 0.4 mL, Subcutaneous, qDay ertapenem 1 gram(s), IV Piggyback, q24h gabapentin 300 mg Capsule 300 mg 1 cap(s), Oral, qHS mirtazapine 15 mg tablet 15 mg 1 tab(s), Oral, qDay morphine 30 mg ER tablet 30 mg 1 tab(s), Oral, now morphine 30 mg ER tablet 60 mg 2 tab(s), Oral, q12h Nicoderm patch REMOVAL 1 EA, Miscellaneous, q24h nicotine 14 mg/24 hr ER patch 14 mg 1 patch(es), Transdermal, q24h senna 8.6 mg Tablet 17.2 mg 2 tab(s), Oral, qHS Continuous: (1) NS (0.9% nacl) 1,000 mL 1,000 mL, Intravenous, 75 mL/hr PRN: (6) LORAZEPam 1 mg Tablet 1 mg 1 tab(s), Oral, TID morphine 15 mg IR tablet 15 mg 1 tab(s), Oral, q4h ondansetron 2 mg/ 1 mL 2 mL INJ 4 mg 2 mL, IV Push, q4h ondansetron 4 mg tablet 4 mg 1 tab(s), Oral, q6h polyethylene glycol 3350 - UD packet 17 gram(s) 15 mL, Oral, qDay prochlorperazine 10 mg 2 mL, IV Piggyback, q6h Physical Exam Young adult female laying in bed She does not appear in any acute distress Flat affect NCAT, PERRLA Thin appearing Abdomen is soft Bilateral nephrostomy tubes in place Heart rate regular Easy respirations Skin color appropriate for ethnicity She is able to move all extremities spontaneously She is alert, oriented x4, cooperative Cranial nerves II through XII grossly intact Vitals and Measurements T: 36.6 C (Oral) TMIN: 36.6 C (Oral) TMAX: 36.8 C (Oral) HR: 89 RR: 18 BP: 121/75 SpO2: 98% Weight Dosing Weight: 55.7 kg (02/23/23) Dosing Weight: 55.7 kg (02/23/23) Time Spent 32 minutes spent, greater 50% of bedside discussing plan of care Labs 03/04 04:59 WBC: 6.8 Hgb: 11.2 L Hct: 32.6 L Platelet: 400 Neutrophil %: 54.7 Glucose Level: 100 Sodium Level: 137 Potassium Level: 4.3 BUN: 9.0 Creatinine Lvl (s): 0.77 03/03 04:48 WBC: 6.6 Hgb: 10.7 L Hct: 31.7 L Platelet: 420 Neutrophil %: 52.9 Glucose Level: 92 Sodium Level: 138 Potassium Level: 4.5 BUN: 7.0 L Creatinine Lvl (s): 0.72 Imaging Results and [address] CT Abdomen/Pelvis w/Contrast Result Date: February 26, 2023 Verified By: ALEC PEDROZA MD CLINICAL STATEMENT: IMPRESSION: 2.4 cm peripherally enhancing mass within the inferior central pelvis. Thismay represent a necrotic neoplasm or small abscess. Infiltration of pelvicperitoneal fat and perirectal fat may reflect inflammation, post radiationchanges, or a combination of the two. Bladder wall thickening and soft tissue inflammation compatible with knowncystitis. Chronic and incidental findings as above. I have personally reviewed the images of this examination and agree with theresident's findings and interpretation. I reviewed labs, notes, imaging for this admission Assessment/Plan 1. Complicated UTI (urinary tract infection) Antibiotic therapy per primary team 2. Bilateral flank pain Overall she feels her pain is relatively unchanged. She does not notice a significant decrease in efficacy of her pain medication in the middle of the day which suggest that the every 12 hours duration is appropriate. She feels that she is not tolerant to oxycodone and is agreeable to rotating to morphine short acting as well. Please see cancer related pain below 3. Nephrostomy status 4. Cervical cancer Management per primary team 5. Cancer related pain Currently, Sera is receiving MS Contin 30 mg every 12 hours, gabapentin 300 mg nightly, and oxycodone 10 mg every 4 hours as needed. In total, she is utilized 135 oral morphine equivalents. After speaking with Srea, she inform me that she has taken oxycodone for quite some time and feels that it is no longer effective in controlling her pain. She is agreeable to rotating to immediate release morphine 15 mg every 4 hours as needed (which is similar to 10 mg oxycodone since it is equal to 12.5 oral morphine equivalents). Given her utilization, long-acting morphine will be increased to 60 mgevery 12 hours. 6. Tobacco use team tobacco cessation encouraged. Nicotine patch in place 7. Anxiety Ativan per primary 8. Asthma 9. Decreased appetite 10. Grief reaction Emotional support provided 11. Slow transit constipation Patient reports her last bowel movement was last night and it was hard in consistency and she did have to strain. She utilizes MiraLAX at home but does not feel that she would be able to drink a full8 ounces with the MiraLAX currently. She is agreeable to continuing senna as well as the addition of Dulcolax to assist with constipation. This should certainly help with her abdominal pain. 12. Sore throat 13. Lower extremity pain Remains on gabapentin per primary team Orders: bisacodyl, Start: 03/04/23 9:38:00 EDT, Dose = 10 mg, = 2 tab(s), Oral, qDay, 03/04/23 9:38:00 EDT morphine, Start: 03/04/23 20:00:00 EDT, Dose = 60 mg, = 2 tab(s), Oral, q12h, 0, 03/04/23 20:00:00 EDT morphine, Start: 03/04/23 9:50:00 EDT, Dose = 15 mg, = 1 tab(s), Oral, q4h, PRN, as needed for pain, 03/04/23 9:50:00 EDT morphine, Start: 03/04/23 9:50:00 EDT, Dose = 30 mg, = 1 tab(s), Oral, now, STAT, Stop: 03/04/23 9:50:00 EDT, 03/04/23 9:50:00 EDT 14. Encounter for palliative care Patient is requesting all of her medications be sent to the [place] pharmacy so that it is less complicated for her family when they pick her up to obtain her medications. I did pass this along to nursing so that the primary team is also aware about this. Plan is for possible discharge today. Patient will follow up with her oncology team for ongoing symptom management. Thank you for the ability to participate in her care. Digitally Signed by SANTINO SAWYER MD on 03/04/2023 09:57 AM [facility] [id number] Palliative care Progress note Date of Service 03/04/2023 Code Status Code Status - Ordered -- 02/23/23 16:01:00 EDT, Full Code, Constant Order Chief Complaint Abdominal pain, flank pain History of Present Illness Last documented bowel movement 427 the patient reports last bowel movement last night. Was hard andshe had to strain to defecate. She reports her pain is relatively unchanged with the previous medication regimen. She continues to take gabapentin but is unsure whether or not it provides her with any additional relief. She feels that she is no longer receiving benefit from oxycodone immediate release. She does not notice that her pain is worse in the middle of the day. She reports that her pain is stabbing in nature in her abdomen and her flank and sometimes radiates to her urethra. She does not notice any neuropathic pain symptoms including shooting pain, numbness, tingling. She denies nausea. Medications Medications (17) Active Scheduled: (10) bisacodyl 5 mg EC tablet 10 mg 2 tab(s), Oral, qDay enoxaparin 40 mg/ 0.4mL syringe 40 mg 0.4 mL, Subcutaneous, qDay ertapenem 1 gram(s), IV Piggyback, q24h gabapentin 300 mg Capsule 300 mg 1 cap(s), Oral, qHS mirtazapine 15 mg tablet 15 mg 1 tab(s), Oral, qDay morphine 30 mg ER tablet 30 mg 1 tab(s), Oral, now morphine 30 mg ER tablet 60 mg 2 tab(s), Oral, q12h Nicoderm patch REMOVAL 1 EA, Miscellaneous, q24h nicotine 14 mg/24 hr ER patch 14 mg 1 patch(es), Transdermal, q24h senna 8.6 mg Tablet 17.2 mg 2 tab(s), Oral, qHS Continuous: (1) NS (0.9% nacl) 1,000 mL 1,000 mL, Intravenous, 75 mL/hr PRN: (6) LORAZEPam 1 mg Tablet 1 mg 1 tab(s), Oral, TID morphine 15 mg IR tablet 15 mg 1 tab(s), Oral, q4h ondansetron 2 mg/ 1 mL 2 mL INJ 4 mg 2 mL, IV Push, q4h ondansetron 4 mg tablet 4 mg 1 tab(s), Oral, q6h polyethylene glycol 3350 - UD packet 17 gram(s) 15 mL, Oral, qDay prochlorperazine 10 mg 2 mL, IV Piggyback, q6h Physical Exam Young adult female laying in bed She does not appear in any acute distress Flat affect NCAT, PERRLA Thin appearing Abdomen is soft Bilateral nephrostomy tubes in place Heart rate regular Easy respirations Skin color appropriate for ethnicity She is able to move all extremities spontaneously She is alert, oriented x4, cooperative Cranial nerves II through XII grossly intact Vitals and Measurements T: 36.6 C (Oral) TMIN: 36.6 C (Oral) TMAX: 36.8 C (Oral) HR: 89 RR: 18 BP: 121/75 SpO2: 98% Weight Dosing Weight: 55.7 kg (02/23/23) Dosing Weight: 55.7 kg (02/23/23) Time Spent 32 minutes spent, greater 50% of bedside discussing plan of care Labs 03/04 04:59 WBC: 6.8 Hgb: 11.2 L Hct: 32.6 L Platelet: 400 Neutrophil %: 54.7 Glucose Level: 100 Sodium Level: 137 Potassium Level: 4.3 BUN: 9.0 Creatinine Lvl (s): 0.77 03/03 04:48 WBC: 6.6 Hgb: 10.7 L Hct: 31.7 L Platelet: 420 Neutrophil %: 52.9 Glucose Level: 92 Sodium Level: 138 Potassium Level: 4.5 BUN: 7.0 L Creatinine Lvl (s): 0.72 Imaging Results and [address] CT Abdomen/Pelvis w/Contrast Result Date: February 26, 2023 Verified By: ALEC PEDROZA MD CLINICAL STATEMENT: IMPRESSION: 2.4 cm peripherally enhancing mass within the inferior central pelvis. Thismay represent a necrotic neoplasm or small abscess. Infiltration of pelvicperitoneal fat and perirectal fat may reflect inflammation, post radiationchanges, or a combination of the two. Bladder wall thickening and soft tissue inflammation compatible with knowncystitis. Chronic and incidental findings as above. I have personally reviewed the images of this examination and agree with theresident's findings and interpretation. I reviewed labs, notes, imaging for this admission Assessment/Plan 1. Complicated UTI (urinary tract infection) Antibiotic therapy per primary team 2. Bilateral flank pain Overall she feels her pain is relatively unchanged. She does not notice a significant decrease in efficacy of her pain medication in the middle of the day which suggest that the every 12 hours duration is appropriate. She feels that she is not tolerant to oxycodone and is agreeable to rotating to morphine short acting as well. Please see cancer related pain below 3. Nephrostomy status 4. Cervical cancer Management per primary team 5. Cancer related pain Currently, Sera is receiving MS Contin 30 mg every 12 hours, gabapentin 300 mg nightly, and oxycodone 10 mg every 4 hours as needed. In total, she is utilized 135 oral morphine equivalents. After speaking with Sera, she inform me that she has taken oxycodone for quite some time and feels that it is no longer effective in controlling her pain. She is agreeable to rotating to immediate release morphine 15 mg every 4 hours as needed (which is similar to 10 mg oxycodone since it is equal to 12.5 oral morphine equivalents). Given her utilization, long-acting morphine will be increased to 60 mgevery 12 hours. 6. Tobacco use team tobacco cessation encouraged. Nicotine patch in place 7. Anxiety Ativan per primary 8. Asthma 9. Decreased appetite 10. Grief reaction Emotional support provided 11. Slow transit constipation Patient reports her last bowel movement was last night and it was hard in consistency and she did have to strain. She utilizes MiraLAX at home but does not feel that she would be able to drink a full8 ounces with the MiraLAX currently. She is agreeable to continuing senna as well as the addition of Dulcolax to assist with constipation. This should certainly help with her abdominal pain. 12. Sore throat 13. Lower extremity pain Remains on gabapentin per primary team Orders: bisacodyl, Start: 03/04/23 9:38:00 EDT, Dose = 10 mg, = 2 tab(s), Oral, qDay, 03/04/23 9:38:00 EDT morphine, Start: 03/04/23 20:00:00 EDT, Dose = 60 mg, = 2 tab(s), Oral, q12h, 0, 03/04/23 20:00:00 EDT morphine, Start: 03/04/23 9:50:00 EDT, Dose = 15 mg, = 1 tab(s), Oral, q4h, PRN, as needed for pain, 03/04/23 9:50:00 EDT morphine, Start: 03/04/23 9:50:00 EDT, Dose = 30 mg, = 1 tab(s), Oral, now, STAT, Stop: 03/04/23 9:50:00 EDT, 03/04/23 9:50:00 EDT 14. Encounter for palliative care Patient is requesting all of her medications be sent to the [place] pharmacy so that it is less complicated for her family when they pick her up to obtain her medications. I did pass this along to nursing so that the primary team is also aware about this. Plan is for possible discharge today. Patient will follow up with her oncology team for ongoing symptom management. Thank you for the ability to participate in her care. Digitally Signed by SANTINO SAWYER MD on 03/04/2023 09:57 AM [facility] [id number] Palliative care Progress note Date of Service 03/04/2023 Code Status Code Status - Ordered -- 02/23/23 16:01:00 EDT, Full Code, Constant Order Chief Complaint Abdominal pain, flank pain History of Present Illness Last documented bowel movement 427 the patient reports last bowel movement last night. Was hard andshe had to strain to defecate. She reports her pain is relatively unchanged with the previous medication regimen. She continues to take gabapentin but is unsure whether or not it provides her with any additional relief. She feels that she is no longer receiving benefit from oxycodone immediate release. She does not notice that her pain is worse in the middle of the day. She reports that her pain is stabbing in nature in her abdomen and her flank and sometimes radiates to her urethra. She does not notice any neuropathic pain symptoms including shooting pain, numbness, tingling. She denies nausea. Medications Medications (17) Active Scheduled: (10) bisacodyl 5 mg EC tablet 10 mg 2 tab(s), Oral, qDay enoxaparin 40 mg/ 0.4mL syringe 40 mg 0.4 mL, Subcutaneous, qDay ertapenem 1 gram(s), IV Piggyback, q24h gabapentin 300 mg Capsule 300 mg 1 cap(s), Oral, qHS mirtazapine 15 mg tablet 15 mg 1 tab(s), Oral, qDay morphine 30 mg ER tablet 30 mg 1 tab(s), Oral, now morphine 30 mg ER tablet 60 mg 2 tab(s), Oral, q12h Nicoderm patch REMOVAL 1 EA, Miscellaneous, q24h nicotine 14 mg/24 hr ER patch 14 mg 1 patch(es), Transdermal, q24h senna 8.6 mg Tablet 17.2 mg 2 tab(s), Oral, qHS Continuous: (1) NS (0.9% nacl) 1,000 mL 1,000 mL, Intravenous, 75 mL/hr PRN: (6) LORAZEPam 1 mg Tablet 1 mg 1 tab(s), Oral, TID morphine 15 mg IR tablet 15 mg 1 tab(s), Oral, q4h ondansetron 2 mg/ 1 mL 2 mL INJ 4 mg 2 mL, IV Push, q4h ondansetron 4 mg tablet 4 mg 1 tab(s), Oral, q6h polyethylene glycol 3350 - UD packet 17 gram(s) 15 mL, Oral, qDay prochlorperazine 10 mg 2 mL, IV Piggyback, q6h Physical Exam Young adult female laying in bed She does not appear in any acute distress Flat affect NCAT, PERRLA Thin appearing Abdomen is soft Bilateral nephrostomy tubes in place Heart rate regular Easy respirations Skin color appropriate for ethnicity She is able to move all extremities spontaneously She is alert, oriented x4, cooperative Cranial nerves II through XII grossly intact Vitals and Measurements T: 36.6 C (Oral) TMIN: 36.6 C (Oral) TMAX: 36.8 C (Oral) HR: 89 RR: 18 BP: 121/75 SpO2: 98% Weight Dosing Weight: 55.7 kg (02/23/23) Dosing Weight: 55.7 kg (02/23/23) Time Spent 32 minutes spent, greater 50% of bedside discussing plan of care Labs 03/04 04:59 WBC: 6.8 Hgb: 11.2 L Hct: 32.6 L Platelet: 400 Neutrophil %: 54.7 Glucose Level: 100 Sodium Level: 137 Potassium Level: 4.3 BUN: 9.0 Creatinine Lvl (s): 0.77 03/03 04:48 WBC: 6.6 Hgb: 10.7 L Hct: 31.7 L Platelet: 420 Neutrophil %: 52.9 Glucose Level: 92 Sodium Level: 138 Potassium Level: 4.5 BUN: 7.0 L Creatinine Lvl (s): 0.72 Imaging Results and Diagnostics CT Abdomen/Pelvis w/Contrast Result Date: February 26, 2023 Verified By: ADAM LORA, ALEC Huitron CLINICAL STATEMENT: IMPRESSION: 2.4 cm peripherally enhancing mass within the inferior central pelvis. Thismay represent a necrotic neoplasm or small abscess. Infiltration of pelvicperitoneal fat and perirectal fat may reflect inflammation, post radiationchanges, or a combination of the two. Bladder wall thickening and soft tissue inflammation compatible with knowncystitis. Chronic and incidental findings as above. I have personally reviewed the images of this examination and agree with theresident's findings and interpretation. I reviewed labs, notes, imaging for this admission Assessment/Plan 1. Complicated UTI (urinary tract infection) Antibiotic therapy per primary team 2. Bilateral flank pain Overall she feels her pain is relatively unchanged. She does not notice a significant decrease in efficacy of her pain medication in the middle of the day which suggest that the every 12 hours duration is appropriate. She feels that she is not tolerant to oxycodone and is agreeable to rotating to morphine short acting as well. Please see cancer related pain below 3. Nephrostomy status 4. Cervical cancer Management per primary team 5. Cancer related pain Currently, Sera is receiving MS Contin 30 mg every 12 hours, gabapentin 300 mg nightly, and oxycodone 10 mg every 4 hours as needed. In total, she is utilized 135 oral morphine equivalents. After speaking with Sera, she inform me that she has taken oxycodone for quite some time and feels that it is no longer effective in controlling her pain. She is agreeable to rotating to immediate release morphine 15 mg every 4 hours as needed (which is similar to 10 mg oxycodone since it is equal to 12.5 oral morphine equivalents). Given her utilization, long-acting morphine will be increased to 60 mgevery 12 hours. 6. Tobacco use team tobacco cessation encouraged. Nicotine patch in place 7. Anxiety Ativan per primary 8. Asthma 9. Decreased appetite 10. Grief reaction Emotional support provided 11. Slow transit constipation Patient reports her last bowel movement was last night and it was hard in consistency and she did have to strain. She utilizes MiraLAX at home but does not feel that she would be able to drink a full8 ounces with the MiraLAX currently. She is agreeable to continuing senna as well as the addition of Dulcolax to assist with constipation. This should certainly help with her abdominal pain. 12. Sore throat 13. Lower extremity pain Remains on gabapentin per primary team Orders: bisacodyl, Start: 03/04/23 9:38:00 EDT, Dose = 10 mg, = 2 tab(s), Oral, qDay, 03/04/23 9:38:00 EDT morphine, Start: 03/04/23 20:00:00 EDT, Dose = 60 mg, = 2 tab(s), Oral, q12h, 0, 03/04/23 20:00:00 EDT morphine, Start: 03/04/23 9:50:00 EDT, Dose = 15 mg, = 1 tab(s), Oral, q4h, PRN, as needed for pain, 03/04/23 9:50:00 EDT morphine, Start: 03/04/23 9:50:00 EDT, Dose = 30 mg, = 1 tab(s), Oral, now, STAT, Stop: 03/04/23 9:50:00 EDT, 03/04/23 9:50:00 EDT 14. Encounter for palliative care Patient is requesting all of her medications be sent to the [place] pharmacy so that it is less complicated for her family when they pick her up to obtain her medications. I did pass this along to nursing so that the primary team is also aware about this. Plan is for possible discharge today. Patient will follow up with her oncology team for ongoing symptom management. Thank you for the ability to participate in her care. Digitally Signed by SANTINO SAWYER MD on 03/04/2023 09:57 AM [facility] [id number] Note Date of Service 03/04/2023 Chief Complaint CHRONIC CANCER RELATED PAIN, COMPLICATED UTI Subjective Patient seen and evaluated. No acute events overnight. after poor pain control yesterday evening, she reports pain overnight was better although she still feels as though she is getting doses late but feels that her care much much improved overnight compared to yesterday. She does still endorse pain in her LLQ and left flank. She feels that her avg pain scale throughout the day is 7/10. Denies fevers/chills, CP, SOB. Did have nausea over past several days with occasional emesis. Objective Vitals and Measurements T: 36.6 C (Oral) TMIN: 36.6 C (Oral) TMAX: 36.8 C (Oral) HR: 89 RR: 18 BP: 121/75 SpO2: 98% Intake and Output 7AM Yesterday to 7AM Today Intake and Output (Last 24 hours) Intake Administration Information 1800.00 Oral Intake 530.00 Output Urine Voided 650.00 Urostomy Output: 4300.00 Stool Count 0.00 Emesis Count 0.00 Total Summary Total Intake 2330.00 Total Output 4950.00 Fluid Balance -2620.00 Physical Exam General: A&O x3 HEENT: normocephalic, atraumatic Cardio: RRR Lungs: Breathing w/out difficulty, no use of accessory muscles GI: Soft, non-tender, non-distended, Bowel sounds x4 Extremities: non-edematous, symmetric, + Homans sign in LLE Neuro: Normal sensation, normal DTR, 5/5 strength in lower extremeties Psychiatric: Normal affect, normal demeanor. Well groomed. Non-pressured speech. Skin: warm, no rashes. Weight Dosing Weight: 55.7 kg (02/23/23) Dosing Weight: 55.7 kg (02/23/23) Medications Medications (15) Active Scheduled: (8) enoxaparin 40 mg/ 0.4mL syringe 40 mg 0.4 mL, Subcutaneous, qDay ertapenem 1 gram(s), IV Piggyback, q24h gabapentin 300 mg Capsule 300 mg 1 cap(s), Oral, qHS mirtazapine 15 mg tablet 15 mg 1 tab(s), Oral, qDay morphine 30 mg ER tablet 30 mg 1 tab(s), Oral, q12h Nicoderm patch REMOVAL 1 EA, Miscellaneous, q24h nicotine 14 mg/24 hr ER patch 14 mg 1 patch(es), Transdermal, q24h senna 8.6 mg Tablet 17.2 mg 2 tab(s), Oral, qHS Continuous: (1) NS (0.9% nacl) 1,000 mL 1,000 mL, Intravenous, 75 mL/hr PRN: (6) LORAZEPam 1 mg Tablet 1 mg 1 tab(s), Oral, TID ondansetron 2 mg/ 1 mL 2 mL INJ 4 mg 2 mL, IV Push, q4h ondansetron 4 mg tablet 4 mg 1 tab(s), Oral, q6h oxycodone 5 mg tablet (immediate release) 10 mg 2 tab(s), Oral, q4h polyethylene glycol 3350 - UD packet 17 gram(s) 15 mL, Oral, qDay prochlorperazine 10 mg 2 mL, IV Piggyback, q6h Lab Results 03/04 04:59 WBC: 6.8 Hgb: 11.2 L Hct: 32.6 L Platelet: 400 Neutrophil %: 54.7 Glucose Level: 100 Sodium Level: 137 Potassium Level: 4.3 BUN: 9.0 Creatinine Lvl (s): 0.77 Glucose: 100 Cl: 106 CO2 27 cCa: 10 Ma.8 Phos: 4.7 Alb: 2.5 TBili: 0.2 AST/ALT: 36/36 03/03 04:48 WBC: 6.6 Hgb: 10.7 L Hct: 31.7 L Platelet: 420 Neutrophil %: 52.9 Glucose Level: 92 Sodium Level: 138 Potassium Level: 4.5 BUN: 7.0 L Creatinine Lvl (s): 0.72 Imaging Results and Diagnostics CT Abdomen/Pelvis w/Contrast Result Date: February 26, 2023 Verified By: ADAM LORA, ALEC Huitron CLINICAL STATEMENT: IMPRESSION: 2.4 cm peripherally enhancing mass within the inferior central pelvis. Thismay represent a necrotic neoplasm or small abscess. Infiltration of pelvicperitoneal fat and perirectal fat may reflect inflammation, post radiationchanges, or a combination of the two. Bladder wall thickening and soft tissue inflammation compatible with knowncystitis. Chronic and incidental findings as above. I have personally reviewed the images of this examination and agree with theresident's findings and interpretation. EKG No qualifying data available. Assessment/Plan 1. Complicated UTI (urinary tract infection) - Left nephrostomy tube in place. - Received treatment with Bactrim outpatient prior to admission. - Urine culture positive for ESBL E. Coli; Culture from Neph tube NGTD - ID consulted, outpatient antibiotics recommended. - Currently on Ertapenem q24hrs. - 02/26 CT A/P: 2.4 cm peripherally enhancing mass within the inferior central pelvis. Discussed with IR, it is the uterus with post-radiation changes. Therefore, no biopsy recommended. 2. Bilateral flank pain - Chronic pain due to cervical cancer - 01/01 Urogram showed no evidence of right urinary tract obstruction - Urology consulted. For outpatient consult. 3. Nephrostomy status - Left Nephrostomy tube initially placed in 2019. - Last exchanged 02/17/2023 - Clear urine in bag - Urine culture from nephrostomy tube with NGTD. - Adequate UOP 4. Cervical cancer - Stage IIIB SCC of cervix - S/p Chemoradiation, currently in remission - Port-A-Cath in place 5. Cancer related pain - Appreciate Palliative recommendations. - Increased MS Contin to 30mg BID - Oxycodone 10mg q4hrs PRN breakthrough. - Gabapentin 300mg qHS - Patient still reporting pain poorly controlled with avg pain scale of 7/10 6. Tobacco use - Nicotine patches (1/2 PPD). 7. Anxiety - Continue Ativan TID PRN. - Patient upset this morning about being in pain, but reasonable 8. Asthma - Asymptomatic 9. Decreased appetite - Continue mirtazapine for appetite stimulant 10. Grief reaction - Patient has difficulty coping with her chronic illness. Refuses counseling. - Mood stable this morning - Scheduled Lexapro, Ativan PRN 11. Slow transit constipation - MiraLAX 17g daily - senna 17.2mg nightly 12. Sore throat - Improved - Resp panel negative 13. Lower extremity pain - Reports pain and weakness with weight bearing - No edema and symmetric - Refused Lovenox and not wearing SCDs - Bilateral LE dopplers negative Orders: nicotine, Start: 03/03/23 13:00:00 EDT, Dose = 1 patch(es), ER Film, Transdermal, q24h, 14 day(s), Stop: 03/16/23 13:00:00 EDT, 03/03/23 12:54:00 EDT nicotine (Nicoderm Patch REMOVAL), Start: 03/04/23 13:00:00 EDT, q24h, 03/04/23 12:54:00 EDT Consult to Palliative Care SCD Machine ([id number]) SCD Sleeves - Knee ([id number]) Patient is a 32 yo woman with a history of stage IIIB cervical cancer s/p chemoradiation in remission, has a history obstructive uropathy with left nephrostomy tube in place. Admitted for pelvic pain and complicated urinary tract infection. Admit to regular floor Condition: Stable Vitals: q8hr Activity: Up Ad Marisa Diet: Regular IVF: NS 75/hr, Ertapenem 1g qd DVT Prophylaxis: SCDs, Susannah 40 qd (Refused 03/02) Consults: Palliative, Infectious Disease Dispo: Continue pain management. Continue Ertapenem. Will need outpatient IV antibiotic therapy. Outpatient IV antibiotic education prior to discharge. Reconsult palliative for patient reported uncontrolled pain Digitally Signed by FARZANA CAST DO on 03/04/2023 06:43 AM [facility] [id number] Note Date of Service 03/04/2023 Chief Complaint CHRONIC CANCER RELATED PAIN, COMPLICATED UTI Subjective Patient seen and evaluated. No acute events overnight. after poor pain control yesterday evening, she reports pain overnight was better although she still feels as though she is getting doses late but feels that her care much much improved overnight compared to yesterday. She does still endorse pain in her LLQ and left flank. She feels that her avg pain scale throughout the day is 7/10. Denies fevers/chills, CP, SOB. Did have nausea over past several days with occasional emesis. Objective Vitals and Measurements T: 36.6 C (Oral) TMIN: 36.6 C (Oral) TMAX: 36.8 C (Oral) HR: 89 RR: 18 BP: 121/75 SpO2: 98% Intake and Output 7AM Yesterday to 7AM Today Intake and Output (Last 24 hours) Intake Administration Information 1800.00 Oral Intake 530.00 Output Urine Voided 650.00 Urostomy Output: 4300.00 Stool Count 0.00 Emesis Count 0.00 Total Summary Total Intake 2330.00 Total Output 4950.00 Fluid Balance -2620.00 Physical Exam General: A&O x3 HEENT: normocephalic, atraumatic Cardio: RRR Lungs: Breathing w/out difficulty, no use of accessory muscles GI: Soft, non-tender, non-distended, Bowel sounds x4 Extremities: non-edematous, symmetric, + Homans sign in LLE Neuro: Normal sensation, normal DTR, 5/5 strength in lower extremeties Psychiatric: Normal affect, normal demeanor. Well groomed. Non-pressured speech. Skin: warm, no rashes. Weight Dosing Weight: 55.7 kg (02/23/23) Dosing Weight: 55.7 kg (02/23/23) Medications Medications (15) Active Scheduled: (8) enoxaparin 40 mg/ 0.4mL syringe 40 mg 0.4 mL, Subcutaneous, qDay ertapenem 1 gram(s), IV Piggyback, q24h gabapentin 300 mg Capsule 300 mg 1 cap(s), Oral, qHS mirtazapine 15 mg tablet 15 mg 1 tab(s), Oral, qDay morphine 30 mg ER tablet 30 mg 1 tab(s), Oral, q12h Nicoderm patch REMOVAL 1 EA, Miscellaneous, q24h nicotine 14 mg/24 hr ER patch 14 mg 1 patch(es), Transdermal, q24h senna 8.6 mg Tablet 17.2 mg 2 tab(s), Oral, qHS Continuous: (1) NS (0.9% nacl) 1,000 mL 1,000 mL, Intravenous, 75 mL/hr PRN: (6) LORAZEPam 1 mg Tablet 1 mg 1 tab(s), Oral, TID ondansetron 2 mg/ 1 mL 2 mL INJ 4 mg 2 mL, IV Push, q4h ondansetron 4 mg tablet 4 mg 1 tab(s), Oral, q6h oxycodone 5 mg tablet (immediate release) 10 mg 2 tab(s), Oral, q4h polyethylene glycol 3350 - UD packet 17 gram(s) 15 mL, Oral, qDay prochlorperazine 10 mg 2 mL, IV Piggyback, q6h Lab Results 03/04 04:59 WBC: 6.8 Hgb: 11.2 L Hct: 32.6 L Platelet: 400 Neutrophil %: 54.7 Glucose Level: 100 Sodium Level: 137 Potassium Level: 4.3 BUN: 9.0 Creatinine Lvl (s): 0.77 Glucose: 100 Cl: 106 CO2 27 cCa: 10 Ma.8 Phos: 4.7 Alb: 2.5 TBili: 0.2 AST/ALT: 36/36 03/03 04:48 WBC: 6.6 Hgb: 10.7 L Hct: 31.7 L Platelet: 420 Neutrophil %: 52.9 Glucose Level: 92 Sodium Level: 138 Potassium Level: 4.5 BUN: 7.0 L Creatinine Lvl (s): 0.72 Imaging Results [address] CT Abdomen/Pelvis w/Contrast Result Date: February 26, 2023 Verified By: ADAM LORA, ALEC Huitron CLINICAL STATEMENT: IMPRESSION: 2.4 cm peripherally enhancing mass within the inferior central pelvis. Thismay represent a necrotic neoplasm or small abscess. Infiltration of pelvicperitoneal fat and perirectal fat may reflect inflammation, post radiationchanges, or a combination of the two. Bladder wall thickening and soft tissue inflammation compatible with knowncystitis. Chronic and incidental findings as above. I have personally reviewed the images of this examination and agree with theresident's findings and interpretation. EKG No qualifying data available. Assessment/Plan 1. Complicated UTI (urinary tract infection) - Left nephrostomy tube in place. - Received treatment with Bactrim outpatient prior to admission. - Urine culture positive for ESBL E. Coli; Culture from Neph tube NGTD - ID consulted, outpatient antibiotics recommended. - Currently on Ertapenem q24hrs. - 02/26 CT A/P: 2.4 cm peripherally enhancing mass within the inferior central pelvis. Discussed with IR, it is the uterus with post-radiation changes. Therefore, no biopsy recommended. 2. Bilateral flank pain - Chronic pain due to cervical cancer - 01/01 Urogram showed no evidence of right urinary tract obstruction - Urology consulted. For outpatient consult. 3. Nephrostomy status - Left Nephrostomy tube initially placed in 2019. - Last exchanged 02/17/2023 - Clear urine in bag - Urine culture from nephrostomy tube with NGTD. - Adequate UOP 4. Cervical cancer - Stage IIIB SCC of cervix - S/p Chemoradiation, currently in remission - Port-A-Cath in place 5. Cancer related pain - Appreciate Palliative recommendations. - Increased MS Contin to 30mg BID - Oxycodone 10mg q4hrs PRN breakthrough. - Gabapentin 300mg qHS - Patient still reporting pain poorly controlled with avg pain scale of 7/10 6. Tobacco use - Nicotine patches (1/2 PPD). 7. Anxiety - Continue Ativan TID PRN. - Patient upset this morning about being in pain, but reasonable 8. Asthma - Asymptomatic 9. Decreased appetite - Continue mirtazapine for appetite stimulant 10. Grief reaction - Patient has difficulty coping with her chronic illness. Refuses counseling. - Mood stable this morning - Scheduled Lexapro, Ativan PRN 11. Slow transit constipation - MiraLAX 17g daily - senna 17.2mg nightly 12. Sore throat - Improved - Resp panel negative 13. Lower extremity pain - Reports pain and weakness with weight bearing - No edema and symmetric - Refused Lovenox and not wearing SCDs - Bilateral LE dopplers negative Orders: nicotine, Start: 03/03/23 13:00:00 EDT, Dose = 1 patch(es), ER Film, Transdermal, q24h, 14 day(s), Stop: 03/16/23 13:00:00 EDT, 03/03/23 12:54:00 EDT nicotine (Nicoderm Patch REMOVAL), Start: 03/04/23 13:00:00 EDT, q24h, 03/04/23 12:54:00 EDT Consult to Palliative Care SCD Machine ([id number]) SCD Sleeves - Knee ([id number]) Patient is a 32 yo woman with a history of stage IIIB cervical cancer s/p chemoradiation in remission, has a history obstructive uropathy with left nephrostomy tube in place. Admitted for pelvic pain and complicated urinary tract infection. Admit to regular floor Condition: Stable Vitals: q8hr Activity: Up Ad Marisa Diet: Regular IVF: NS 75/hr, Ertapenem 1g qd DVT Prophylaxis: SCDs, Susannah 40 qd (Refused 03/02) Consults: Palliative, Infectious Disease Dispo: Continue pain management. Continue Ertapenem. Will need outpatient IV antibiotic therapy. Outpatient IV antibiotic education prior to discharge. Reconsult palliative for patient reported uncontrolled pain Digitally Signed by FARZANA CAST DO on 03/04/2023 06:43 AM [facility] [id number] Note Date of Service 03/03/2023 Chief Complaint CHRONIC CANCER RELATED PAIN, COMPLICATED UTI Subjective Patient seen and evaluated. No acute events overnight. Pain control improved this morning. Althoughshe does still endorse pain in her LLQ and left flank. Patient notes she has a swollen left leg that is difficult to put weight on. She notes this to have been present for about 2 days now. She had multiple bowel movements 03/01. No BM overnight. States she did not void 03/01. Denies fevers/chills, CP, SOB. Did have nausea over past several days with occasional emesis. Objective Vitals and Measurements T: 36.8 C (Oral) TMIN: 36.7 C (Oral) TMAX: 36.8 C (Oral) HR: 77 RR: 18 BP: 113/84 SpO2: 99% Intake and Output 7AM Yesterday to 7AM Today Intake and Output (Last 24 hours) Intake Oral Intake 480.00 Administration Information 600.00 Supplement Intake 0.00 Output Urostomy Output: 1900.00 Stool Count 0.00 Total Summary Total Intake 1080.00 Total Output 1900.00 Fluid Balance -820.00 Left nephrostomy tube: 175ml uop Physical Exam General: A&O x3 HEENT: normocephalic, atraumatic Cardio: RRR Lungs: Breathing w/out difficulty, no use of accessory muscles GI: Soft, non-tender, non-distended Extremities: non-edematous, symmetric, + Homans sign in LLE Neuro: Normal sensation, normal DTR, 5/5 strength in lower extremeties Psychiatric: Normal affect, normal demeanor. Well groomed. Non-pressured speech. Skin: warm, no rashes. Weight Dosing Weight: 55.7 kg (02/23/23) Dosing Weight: 55.7 kg (02/23/23) Medications Medications (13) Active Scheduled: (6) enoxaparin 40 mg/ 0.4mL syringe 40 mg 0.4 mL, Subcutaneous, qDay ertapenem 1 gram(s), IV Piggyback, q24h gabapentin 300 mg Capsule 300 mg 1 cap(s), Oral, qHS mirtazapine 15 mg tablet 15 mg 1 tab(s), Oral, qDay morphine 30 mg ER tablet 30 mg 1 tab(s), Oral, q12h senna 8.6 mg Tablet 17.2 mg 2 tab(s), Oral, qHS Continuous: (1) NS (0.9% nacl) 1,000 mL 1,000 mL, Intravenous, 75 mL/hr PRN: (6) LORAZEPam 1 mg Tablet 1 mg 1 tab(s), Oral, TID ondansetron 2 mg/ 1 mL 2 mL INJ 4 mg 2 mL, IV Push, q4h ondansetron 4 mg tablet 4 mg 1 tab(s), Oral, q6h oxycodone 5 mg tablet (immediate release) 10 mg 2 tab(s), Oral, q4h polyethylene glycol 3350 - UD packet 17 gram(s) 15 mL, Oral, qDay prochlorperazine 10 mg 2 mL, IV Piggyback, q6h Lab Results 03/03 04:48 WBC: 6.6 Hgb: 10.7 L Hct: 31.7 L Platelet: 420 Glucose: 92 Na: 138 K: 4.5 Cl: 106 CO2 28 BUN: 7 Cr: 0.72 cCa: 10 Ma.6 Phos: 4.9 Alb: 2.5 TBili: 0.2 AST/ALT: 38/33 03/02 04:00 WBC: 6.6 Hgb: 10.4 L Hct: 31.7 L Platelet: 425 Neutrophil %: 53.7 Glucose Level: 118 H Sodium Level: 140 Potassium Level: 4.3 BUN: 8.0 Creatinine Lvl (s): 0.68 Imaging Results [address] CT Abdomen/Pelvis w/Contrast Result Date: February 26, 2023 Verified By: ADAM LORA, ALEC Huitron CLINICAL STATEMENT: IMPRESSION: 2.4 cm peripherally enhancing mass within the inferior central pelvis. This may represent a necrotic neoplasm or small abscess. Infiltration of pelvic peritoneal fat and perirectal fat may reflect inflammation, post radiation changes, or a combination of the two. Bladder wall thickeningand soft tissue inflammation compatible with known cystitis. Chronic and incidental findings as above. I have personally reviewed the images of this examination and agree with the resident's findingsand interpretation. EKG No qualifying data available. Assessment/Plan 1. Complicated UTI (urinary tract infection) - Left nephrostomy tube in place. - Received treatment with Bactrim outpatient prior to admission. - Urine culture positive for ESBL E. Coli; Culture from Neph tube NGTD - ID consulted, outpatient antibiotics recommended. - Currently on Ertapenem q24hrs. - 02/26 CT A/P: 2.4 cm peripherally enhancing mass within the inferior central pelvis. Discussed with IR, it is the uterus with post-radiation changes. Therefore, no biopsy recommended. 2. Bilateral flank pain - Chronic pain due to cervical cancer - 01/01 Urogram showed no evidence of right urinary tract obstruction - Urology consulted. For outpatient consult. 3. Nephrostomy status - Left Nephrostomy tube initially placed in 2019. - Last exchanged 02/17/2023 - Clear urine in bag - Urine culture from nephrostomy tube with NGTD. - Adequate UOP 4. Cervical cancer - Stage IIIB SCC of cervix - S/p Chemoradiation, currently in remission - Port-A-Cath in place 5. Cancer related pain - Appreciate Palliative recommendations. - Increased MS Contin to 30mg BID - Oxycodone 10mg q4hrs PRN breakthrough. - Gabapentin 300mg qHS 6. Tobacco use - Nicotine patch available upon request (11/04 PPD). 7. Anxiety - Continue Ativan TID PRN. - Patient upset this morning about being in pain, but reasonable 8. Asthma - Asymptomatic 9. Decreased appetite - Continue mirtazapine for appetite stimulant 10. Grief reaction - Patient has difficulty coping with her chronic illness. Refuses counseling. - Mood stable this morning - Ativan PRN 11. Slow transit constipation - MiraLAX 17g daily - senna 17.2mg nightly 12. Sore throat - Given explained N/V and sore throat over past 2 days will obtain upper resp panel. 13. Lower extremity pain - Reports pain and weakness with weight bearing - Positive LLE Efren sign - No edema and symmetric - Refused Lovenox and not wearing SCDs - Bilateral LE dopplers pending Patient is a 32 yo woman with a history of stage IIIB cervical cancer s/p chemoradiation in remission, has a history obstructive uropathy with left nephrostomy tube in place. Admitted for pelvic pain and complicated urinary tract infection. Admit to regular floor Condition: Stable Vitals: q8hr Activity: Up Ad Marisa Diet: Regular IVF: NS 75/hr, Ertapenem 1g qd DVT Prophylaxis: SCDs, Susannah 40 qd (Refused 03/02) Consults: Palliative, Infectious Disease Dispo: Continue pain management. Continue Ertapenem. Will need outpatient IV antibiotic therapy. Outpatient IV antibiotic education prior to discharge. Bilateral LE Dopplers pending. Upper Resp panelpending. Digitally Signed by FARZANA CAST DO on 03/03/2023 06:56 AM [facility] [id number] Note Date of Service 03/03/2023 Chief Complaint CHRONIC CANCER RELATED PAIN, COMPLICATED UTI Subjective Patient seen and evaluated. No acute events overnight. Pain control improved this morning. Althoughshe does still endorse pain in her LLQ and left flank. Patient notes she has a swollen left leg that is difficult to put weight on. She notes this to have been present for about 2 days now. She had multiple bowel movements 03/01. No BM overnight. States she did not void 03/01. Denies fevers/chills, CP, SOB. Did have nausea over past several days with occasional emesis. Objective Vitals and Measurements T: 36.8 C (Oral) TMIN: 36.7 C (Oral) TMAX: 36.8 C (Oral) HR: 77 RR: 18 BP: 113/84 SpO2: 99% Intake and Output 7AM Yesterday to 7AM Today Intake and Output (Last 24 hours) Intake Oral Intake 480.00 Administration Information 600.00 Supplement Intake 0.00 Output Urostomy Output: 1900.00 Stool Count 0.00 Total Summary Total Intake 1080.00 Total Output 1900.00 Fluid Balance -820.00 Left nephrostomy tube: 175ml uop Physical Exam General: A&O x3 HEENT: normocephalic, atraumatic Cardio: RRR Lungs: Breathing w/out difficulty, no use of accessory muscles GI: Soft, non-tender, non-distended Extremities: non-edematous, symmetric, + Homans sign in LLE Neuro: Normal sensation, normal DTR, 5/5 strength in lower extremeties Psychiatric: Normal affect, normal demeanor. Well groomed. Non-pressured speech. Skin: warm, no rashes. Weight Dosing Weight: 55.7 kg (02/23/23) Dosing Weight: 55.7 kg (02/23/23) Medications Medications (13) Active Scheduled: (6) enoxaparin 40 mg/ 0.4mL syringe 40 mg 0.4 mL, Subcutaneous, qDay ertapenem 1 gram(s), IV Piggyback, q24h gabapentin 300 mg Capsule 300 mg 1 cap(s), Oral, qHS mirtazapine 15 mg tablet 15 mg 1 tab(s), Oral, qDay morphine 30 mg ER tablet 30 mg 1 tab(s), Oral, q12h senna 8.6 mg Tablet 17.2 mg 2 tab(s), Oral, qHS Continuous: (1) NS (0.9% nacl) 1,000 mL 1,000 mL, Intravenous, 75 mL/hr PRN: (6) LORAZEPam 1 mg Tablet 1 mg 1 tab(s), Oral, TID ondansetron 2 mg/ 1 mL 2 mL INJ 4 mg 2 mL, IV Push, q4h ondansetron 4 mg tablet 4 mg 1 tab(s), Oral, q6h oxycodone 5 mg tablet (immediate release) 10 mg 2 tab(s), Oral, q4h polyethylene glycol 3350 - UD packet 17 gram(s) 15 mL, Oral, qDay prochlorperazine 10 mg 2 mL, IV Piggyback, q6h Lab Results 03/03 04:48 WBC: 6.6 Hgb: 10.7 L Hct: 31.7 L Platelet: 420 Glucose: 92 Na: 138 K: 4.5 Cl: 106 CO2 28 BUN: 7 Cr: 0.72 cCa: 10 Ma.6 Phos: 4.9 Alb: 2.5 TBili: 0.2 AST/ALT: 38/33 03/02 04:00 WBC: 6.6 Hgb: 10.4 L Hct: 31.7 L Platelet: 425 Neutrophil %: 53.7 Glucose Level: 118 H Sodium Level: 140 Potassium Level: 4.3 BUN: 8.0 Creatinine Lvl (s): 0.68 Imaging Results and Diagnostics CT Abdomen/Pelvis w/Contrast Result Date: February 26, 2023 Verified By: ADAM LORA, ALEC Huitron CLINICAL STATEMENT: IMPRESSION: 2.4 cm peripherally enhancing mass within the inferior central pelvis. This may represent a necrotic neoplasm or small abscess. Infiltration of pelvic peritoneal fat and perirectal fat may reflect inflammation, post radiation changes, or a combination of the two. Bladder wall thickeningand soft tissue inflammation compatible with known cystitis. Chronic and incidental findings as above. I have personally reviewed the images of this examination and agree with the resident's findingsand interpretation. EKG No qualifying data available. Assessment/Plan 1. Complicated UTI (urinary tract infection) - Left nephrostomy tube in place. - Received treatment with Bactrim outpatient prior to admission. - Urine culture positive for ESBL E. Coli; Culture from Neph tube NGTD - ID consulted, outpatient antibiotics recommended. - Currently on Ertapenem q24hrs. - 02/26 CT A/P: 2.4 cm peripherally enhancing mass within the inferior central pelvis. Discussed with IR, it is the uterus with post-radiation changes. Therefore, no biopsy recommended. 2. Bilateral flank pain - Chronic pain due to cervical cancer - 01/01 Urogram showed no evidence of right urinary tract obstruction - Urology consulted. For outpatient consult. 3. Nephrostomy status - Left Nephrostomy tube initially placed in 2019. - Last exchanged 02/17/2023 - Clear urine in bag - Urine culture from nephrostomy tube with NGTD. - Adequate UOP 4. Cervical cancer - Stage IIIB SCC of cervix - S/p Chemoradiation, currently in remission - Port-A-Cath in place 5. Cancer related pain - Appreciate Palliative recommendations. - Increased MS Contin to 30mg BID - Oxycodone 10mg q4hrs PRN breakthrough. - Gabapentin 300mg qHS 6. Tobacco use - Nicotine patch available upon request (11/04 PPD). 7. Anxiety - Continue Ativan TID PRN. - Patient upset this morning about being in pain, but reasonable 8. Asthma - Asymptomatic 9. Decreased appetite - Continue mirtazapine for appetite stimulant 10. Grief reaction - Patient has difficulty coping with her chronic illness. Refuses counseling. - Mood stable this morning - Ativan PRN 11. Slow transit constipation - MiraLAX 17g daily - senna 17.2mg nightly 12. Sore throat - Given explained N/V and sore throat over past 2 days will obtain upper resp panel. 13. Lower extremity pain - Reports pain and weakness with weight bearing - Positive LLE Efren sign - No edema and symmetric - Refused Lovenox and not wearing SCDs - Bilateral LE dopplers pending Patient is a 32 yo woman with a history of stage IIIB cervical cancer s/p chemoradiation in remission, has a history obstructive uropathy with left nephrostomy tube in place. Admitted for pelvic pain and complicated urinary tract infection. Admit to regular floor Condition: Stable Vitals: q8hr Activity: Up Ad Marisa Diet: Regular IVF: NS 75/hr, Ertapenem 1g qd DVT Prophylaxis: SCDs, Susannah 40 qd (Refused 03/02) Consults: Palliative, Infectious Disease Dispo: Continue pain management. Continue Ertapenem. Will need outpatient IV antibiotic therapy. Outpatient IV antibiotic education prior to discharge. Bilateral LE Dopplers pending. Upper Resp panelpending. Digitally Signed by FARZANA CAST DO on 03/03/2023 06:56 AM [id number] Infectious disease Progress note Date of Service 02/28/23 Chief Complaint Abdominal pain Subjective Patient is a 32-year-old female with a past medical history significant for Stage IIIB cervical cancer s/p chemoradiation currently in remission and history obstructive uropathy with left nephrostomytube in place (last exchanged 02/17/23). Patient presented to emergency department on February 23, 2023with complaints of flank pain and concern for urinary tract infection. Per documentation patient was having UTI symptoms several days prior to arrival. Patient called Dr. Martin's office and was placed on Bactrim. Patient completed prescribed course. Patient continued to have abdominal and back pain. She then presented to [place]. Patient was placed on meropenem. Patient urine culture came back positive for ESBL and infectious disease was consulted. CT ABD/PELVIS completed showing 2.4 cm peripherally enhancing mass within the inferior central pelvis. This may represent a necrotic neoplasm or small abscess. Possible IR biopsy. Discussed with primary team. Urology consulted. Patient resting bed. No family at bedside. Patient states that nausea and vomiting have improved today. Patient is able to tolerate some p.o. intake at this time. Patient continues to complain of abdominal pain. Patient states she has not urinated for the past 2 days. Patient complains of painful urethra when urinating. Patient states pain is worsening. Patient complained of blood-tinged urine from left-sided nephrostomy tube. Patient continues to complain of intermittent sweating. Objective Vitals and Measurements T: 36.8 C (Oral) TMIN: 36.5 C (Oral) TMAX: 37.0 C (Oral) HR: 91 RR: 16 BP: 100/69 SpO2: 98% Intake and Output 7AM Yesterday to 7AM Today Intake and Output (Last 24 hours) Intake Oral Intake 0.00 Administration Information 320.00 Output Urine Voided 100.00 Urostomy Output: 660.00 Stool Count 1.00 Emesis Count 0.00 Total Summary Total Intake 320.00 Total Output 760.00 Fluid Balance -440.00 Physical Exam Vitals Signs(Last 24 hrs)__ Last Charted Minimum Maximum Temp 36.7(FEB 28 09:12) 36.7(FEB 28 09:12) 37.0(FEB 27 21:02) Resp Rate 16(FEB 28 09:12) 16(FEB 27 16:36) 16(FEB 27 16:36) SBP 112(FEB 28 09:12) 94(FEB 27 16:36) 112(FEB 28 09:12) DBP 73(FEB 28 09:12) 67(FEB 27 16:36) 76(FEB 27 23:46) Physical Exam General: No acute distress. Alert and Appropriate Skin: No rash. Warm, Dry, Intact. Right subclavian port in place. No signs of infection. HEENT: Head is normocephalic and atraumatic. No lesions. Pupils equal in size. Extraocular movements within normal limits. Nose: No septal deviation. Mouth: Oropharynx mucosa is without lesion. Neck: Supple. No lymphadenopathy, thyromegaly noted. Lungs: Bilaterally diminished breath sounds with no crepitation or wheeze. Unlabored Cardiovascular: Heart is regular rhythm, S1S2, No extra-audible heart tones Abdomen: Abdomen is soft. generalized abdominal tenderness with moderate palpation- improved today.Bowel sounds positive all four quadrants. Left nephrostomy tube in place with blood tinged,yellow urine Extremities: No clubbing, cyanosis or edema. Peripheral pulses palpable. No calf tenderness. Adequate peripheral circulation. Neurological: The patient is awake, oriented to time, people and place. Following simple commands, moving all extremities. Weight Weight Dosing Weight: 55.7 kg (02/23/23) Dosing Weight: 55.7 kg (02/23/23) Medications Medications (14) Active Scheduled: (7) enoxaparin 40 mg/ 0.4mL syringe 40 mg 0.4 mL, Subcutaneous, qDay ertapenem 1 gram(s), IV Piggyback, q24h gabapentin 300 mg Capsule 300 mg 1 cap(s), Oral, qHS ketorolac 15 mg/mL vial 15 mg 1 mL, IV Push, q6h mirtazapine 15 mg tablet 15 mg 1 tab(s), Oral, qDay morphine 30 mg ER tablet 30 mg 1 tab(s), Oral, q12h senna 8.6 mg Tablet 17.2 mg 2 tab(s), Oral, qHS Continuous: (1) NS (0.9% nacl) 1,000 mL 1,000 mL, Intravenous, 20 mL/hr PRN: (6) LORAZEPam 1 mg Tablet 1 mg 1 tab(s), Oral, TID ondansetron 2 mg/ 1 mL 2 mL INJ 4 mg 2 mL, IV Push, q4h ondansetron 4 mg tablet 4 mg 1 tab(s), Oral, q6h oxycodone 5 mg tablet (immediate release) 10 mg 2 tab(s), Oral, q4h polyethylene glycol 3350 - UD packet 17 gram(s) 15 mL, Oral, qDay prochlorperazine 10 mg 2 mL, IV Piggyback, q6h Lab Results 02/28 06:05 WBC: 5.2 Hgb: 11.1 L Hct: 33.2 L Platelet: 448 Neutrophil %: 54.3 Glucose Level: 100 Sodium Level: 141 Potassium Level: 4.8 BUN: 13.0 Creatinine Lvl (s): 0.73 02/27 06:05 WBC: 6.6 Hgb: 11.8 L Hct: 36.2 Platelet: 519 H Neutrophil %: 59.6 Glucose Level: 91 Sodium Level: 138 Potassium Level: 4.7 BUN: 9.0 Creatinine Lvl (s): 0.72 EKG No qualifying data available. Assessment/Plan 1. Complicated UTI (urinary tract infection) 2. Bilateral flank pain 3. Nephrostomy status 4. Cervical cancer 5. Cancer related pain 6. Tobacco use 7. Anxiety 8. Asthma 9. Decreased appetite 10. Grief reaction 11. Slow transit constipation Complicated ESBL UTI/ Pyelonephritis - Urine culture obtained February 24, 2020 with a positive for ESBL. 10,000 - 50,000 cfu/ml. Sensitivities reviewed. - CT ABD/PELVIS completed showing Pelvic abscess versus mass. Discussed with primary team. Recommend IR aspiration. - Blood cultures no growth to date - Afebrile/no leukocytosis - Continue IV Ertapenem. Left nephrostomy tube in place, last exchanged 02/17/23. Patient now complaining of not urinating for 2 days, urethra pain and blood-tinged urine to the left nephrostomy tube. Urology consulted. Appreciate input. All other management per primary team Shared/split visit with my collaborating physician Dr. Margoth Martin This dictation was performed using voice recognition software and may include grammatical and/or spelling errors. Digitally Signed by CAMERON RICKS on 02/28/2023 10:42 AM [facility] [id number] Urology Consult note Date of Service February 28, 2023 Reason for Consultation complicated UTI and nephrostomy tube Referring Physician Varun History of Present Illness This is a 32-year-old female with a history of stage IIIb cervical cancer status post chemoradiation in remission. She has a history of obstruction of the left ureter and has a left percutaneous nephrostomy tube in place that was recently changed on February 17, 2023. She was admitted on February 23 withpelvic pain and complicated UTI. Urology is consulted for the complicated UTI as well as the presence of the nephrostomy tube. The patient is not known to [place] [facility]. She reports that she gets her care for her urological needs at Urine culture from date of admission grew out 10-50,000 colony-forming units of ESBL. She is being treated for this by the ertapenem. History reports: Patient reports she started feeling she was having UTI symptoms several days ago.She called in to Dr. Martin's office and was prescribed Bactrim and was to follow-up for an appointment few days later. However patient had to cancel this appointment. She did finish her Bactrim course and reports her symptoms improved but she still has flank pain bilaterally and she says she has not felt well. Denies known fevers. Denies nausea or vomiting. Tolerating p.o.. Having normal bowel movements. She has abdominal pain in the left lower pelvis. She reports she has not voided from her urethra in over a month. A CT scan was obtained yesterday which revealed that the right kidney is normal, the left kidney has a left nephrostomy tube in good position and it also has a ureteral stent extension from the nephrostomy tube. This is in good position. On interview, the patient says she is feeling much better after the antibiotics. She does confirm that she has been having a really hard time with the recurrent urinary infections. She reports that the nephrostomy tube is necessary because there has been continued obstruction of the left ureter. She reports that when she is not having her urinary tract infection, she actually urinates normally through the bladder. It is just when it is painful that she preferentially will let it drain via the nephrostomy tube. Physical Exam Vitals and Measurements T: 36.7 C (Oral) TMIN: 36.5 C (Oral) TMAX: 37.0 C (Oral) HR: 84 RR: 16 BP: 112/73 SpO2: 99% Weight Dosing Weight: 55.7 kg (02/23/23) Dosing Weight: 55.7 kg (02/23/23) General Appearance: NAD Head: normocephalic EENT: normal Lungs: unlabored breathing Left nephrostomy tube is draining clear urine Psychiatric: normal affect Lab Results 02/28 06:05 WBC: 5.2 Hgb: 11.1 L Hct: 33.2 L Platelet: 448 Neutrophil %: 54.3 Glucose Level: 100 Sodium Level: 141 Potassium Level: 4.8 BUN: 13.0 Creatinine Lvl (s): 0.73 02/27 06:05 WBC: 6.6 Hgb: 11.8 L Hct: 36.2 Platelet: 519 H Neutrophil %: 59.6 Glucose Level: 91 Sodium Level: 138 Potassium Level: 4.7 BUN: 9.0 Creatinine Lvl (s): 0.72 Imaging Results and Diagnostics CT Abdomen/Pelvis w/Contrast Result Date: February 26, 2023 Verified By: ALEC PEDROZA MD CLINICAL STATEMENT: IMPRESSION: 2.4 cm peripherally enhancing mass within the inferior central pelvis. Thismay represent a necrotic neoplasm or small abscess. Infiltration of pelvicperitoneal fat and perirectal fat may reflect inflammation, post radiationchanges, or a combination of the two. Bladder wall thickening and soft tissue inflammation compatible with knowncystitis. Chronic and incidental findings as above. I have personally reviewed the images of this examination and agree with theresident's findings and interpretation. Assessment/Plan 1. Complicated UTI (urinary tract infection) We basically sat down and had a conversation about definitive options for the left ureteral stricture which I presume is there due to her history and the patient's report. While she currently has antegrade flow due to the stent, if this is removed it sounds like she obstructs. Therefore, the options include the followin. Keep current setup with left nephro-ureteral stent + nephrostomy tube. Consider suppressive abx. 2. Excise strictured left ureteral segment and reimplant ureter to bladder 3. Excise strictured left ureteral segment and use ileum or appendix to bridge the gap 4. Full left ileal ureter 5. Ileal conduit. 6. left nephrectomy. We discussed that spot treatments or dilations of the left ureter will likely be unsuccessful due to radiation damage. We also discussed that all of the options from 2-5 will be fairly major surgery and will require the expertise of a reconstructive urologist in my opinion. The complication rate isvastly higher in the setting of radiation. We discussed that a left nephrectomy as last resort because this would put her at higher risk of dialysis in her later life. However, that would take care of her immediate issue but it is possible that she will also develop right ureteral obstruction from the radiation later on. Therefore this option is not recommended in my opinion. I will discuss the above options with Dr. Martin and also the local urologist here in [place]. Depending on These discussions, this may warrant referral to [facility] vs local treatment. -- Tricia Carlton MD Urology [facility] Problem List/Past Medical History Ongoing Acute kidney injury Anxiety Asthma Bilateral flank pain Cervical cancer Complicated UTI (urinary tract infection) Decreased appetite Dehydration DVT prophylaxis History of chemotherapy History of radiation therapy Left flank pain Moderate protein-calorie malnutrition Nausea and vomiting Nephrostomy status Obstructive uropathy Port-A-Cath in place Premature menopause Pyelonephritis Historical Cervicitis Chronic kidney disease, stage 3 (moderate) Encounter for antineoplastic chemotherapy ESBL (extended spectrum beta-lactamase) producing bacteria infection History of COVID-19 Hydronephrosis of left kidney Mass of cervix Tinnitus Procedure/Surgical History Nephrostomy with tube drainage: 01/10/21 JJ stent: 11/15/20 Radiation: 06/2020 Cervical biopsy: 2019 Tumor cells, benign: 2001 Nephrostomy with tube drainage Medications Inpatient Ativan, 1 mg= 1 tab(s), Oral, TID, PRN Compazine ertapenem gabapentin, 300 mg= 1 cap(s), Oral, qHS ketorolac, 15 mg= 1 mL, IV Push, q6h lidocaine 1% preservative-free injectable solution, 2.5 mg= 0.25 mL, Intradermal, prep pharm lidocaine 1% preservative-free injectable solution, 2.5 mg= 0.25 mL, Intradermal, prep pharm Lovenox, 40 mg= 0.4 mL, Subcutaneous, qDay Miralax Powder Packet, 17 gram(s)= 15 mL, Oral, qDay, PRN mirtazapine, 15 mg= 1 tab(s), Oral, qDay MS Contin, 30 mg= 1 tab(s), Oral, q12h Normal Saline 1,000 mL, 1000 mL, Intravenous ondansetron, 4 mg= 1 tab(s), Oral, q6h, PRN oxyCODONE 5 mg oral tablet ( IMMEDIATE release ), 10 mg= 2 tab(s), Oral, q4h, PRN senna, 17.2 mg= 2 tab(s), Oral, qHS Zofran, 4 mg= 2 mL, IV Push, q4h, PRN Home Ativan 1 mg oral tablet, 1 mg= 1 tab(s), Oral, TID, PRN gabapentin 300 mg oral capsule, 300 mg= 1 cap(s), Oral, qHS mirtazapine 15 mg oral tablet, 15 mg= 1 tab(s), Oral, qDay, 3 refills ondansetron 4 mg oral tablet, 4 mg= 1 tab(s), Oral, q6h, PRN oxyCODONE 10 mg oral tablet ( IMMEDIATE release ), 10 mg= 1 tab(s), Oral, q6h, PRN Allergies Oranges penicillin Social History Alcohol - Denies Alcohol Use, 06/13/2020 Use: Current. Type: Beer. Frequency: 1-2 times per week., 12/21/2021 Home/Environment - No Risk, 06/13/2020 Domestic Concerns: None. Living situation: Home/Independent. Safe place to go: Yes. Lives In: Mobile home, 1st floor bedroom, 1st floor bathroom. Current Home Treatments None. Professional Skilled Services or Special Community Resources None. Financial concerns: No. Marital Status: Unmarried., 06/13/2020 Nutrition/Health - No Risk, 06/13/2020 Type of diet: Regular. Appetite Fair. Eating Difficulties None. Caffeine intake amount: 1 can pop per day., 06/13/2020 Sexual Sexually active: Yes. First active at age: 18 Years. Current partners: 1. Number of lifetime partners: 7. Self described orientation: Straight or heterosexual. Other contraceptive use: condoms. History of sexual abuse: No. Gender Identity: Identifies as female., 04/12/2020 Substance Abuse - Denies Substance Abuse, 06/13/2020 Use: Never., 04/12/2020 Tobacco Nicotine Use: 5-9 cigarettes (between 1/4 to 1/2 pack)/day in last 30 days. Type: Cigarettes. Tobacco use per day: 10. Number of years: 10. Started at age: 19 Years. Previous treatment: None. Ready to change: Yes., 04/12/2020 Family History Alcohol abuse: Father. Asthma: Mother. Bladder cancer: Negative: Mother, Father, Sister, Brother, Daughter, Son and Grandparent. Breast cancer: Mother. COPD - Chronic obstructive pulmonary disease: Mother. Cancer: Sister. Diabetes: Grandparent. Heart attack: Mother. Heart disease: Mother. Hypertension: Mother. Kidney stone: Mother. Renal cancer: Negative: Mother, Father, Sister, Brother, Daughter, Son and Grandparent. Stroke: Father and Grandparent. Substance abuse: Father. Immunizations hepatitis B pediatric vaccine: 0 unknown unit (06/16/01) hepatitis B pediatric vaccine: 0 unknown unit (06/21/98) measles/mumps/rubella virus vaccine: 0 unknown unit (06/16/01) Digitally Signed by TRICIA CARLTON MD on 02/28/2023 12:08 PM [facility] [id number] Infectious disease Progress note Date of Service 02/28/23 Chief Complaint Abdominal pain Subjective Patient is a 32-year-old female with a past medical history significant for Stage IIIB cervical cancer s/p chemoradiation currently in remission and history obstructive uropathy with left nephrostomytube in place (last exchanged 02/17/23). Patient presented to emergency department on February 23, 2023with complaints of flank pain and concern for urinary tract infection. Per documentation patient was having UTI symptoms several days prior to arrival. Patient called Dr. Martin's office and was placed on Bactrim. Patient completed prescribed course. Patient continued to have abdominal and back pain. She then presented to [place]. Patient was placed on meropenem. Patient urine culture came back positive for ESBL and infectious disease was consulted. CT ABD/PELVIS completed showing 2.4 cm peripherally enhancing mass within the inferior central pelvis. This may represent a necrotic neoplasm or small abscess. Possible IR biopsy. Discussed with primary team. Urology consulted. Patient resting bed. No family at bedside. Patient states that nausea and vomiting have improved today. Patient is able to tolerate some p.o. intake at this time. Patient continues to complain of abdominal pain. Patient states she has not urinated for the past 2 days. Patient complains of painful urethra when urinating. Patient states pain is worsening. Patient complained of blood-tinged urine from left-sided nephrostomy tube. Patient continues to complain of intermittent sweating. Objective Vitals and Measurements T: 36.8 C (Oral) TMIN: 36.5 C (Oral) TMAX: 37.0 C (Oral) HR: 91 RR: 16 BP: 100/69 SpO2: 98% Intake and Output 7AM Yesterday to 7AM Today Intake and Output (Last 24 hours) Intake Oral Intake 0.00 Administration Information 320.00 Output Urine Voided 100.00 Urostomy Output: 660.00 Stool Count 1.00 Emesis Count 0.00 Total Summary Total Intake 320.00 Total Output 760.00 Fluid Balance -440.00 Physical Exam Vitals Signs(Last 24 hrs)__ Last Charted Minimum Maximum Temp 36.7(FEB 28 09:12) 36.7(FEB 28 09:12) 37.0(FEB 27 21:02) Resp Rate 16(FEB 28 09:12) 16(FEB 27 16:36) 16(FEB 27 16:36) SBP 112(FEB 28 09:12) 94(FEB 27 16:36) 112(FEB 28 09:12) DBP 73(FEB 28 09:12) 67(FEB 27 16:36) 76(FEB 27 23:46) Physical Exam General: No acute distress. Alert and Appropriate Skin: No rash. Warm, Dry, Intact. Right subclavian port in place. No signs of infection. HEENT: Head is normocephalic and atraumatic. No lesions. Pupils equal in size. Extraocular movements within normal limits. Nose: No septal deviation. Mouth: Oropharynx mucosa is without lesion. Neck: Supple. No lymphadenopathy, thyromegaly noted. Lungs: Bilaterally diminished breath sounds with no crepitation or wheeze. Unlabored Cardiovascular: Heart is regular rhythm, S1S2, No extra-audible heart tones Abdomen: Abdomen is soft. generalized abdominal tenderness with moderate palpation- improved today.Bowel sounds positive all four quadrants. Left nephrostomy tube in place with blood tinged,yellow urine Extremities: No clubbing, cyanosis or edema. Peripheral pulses palpable. No calf tenderness. Adequate peripheral circulation. Neurological: The patient is awake, oriented to time, people and place. Following simple commands, moving all extremities. Weight Weight Dosing Weight: 55.7 kg (02/23/23) Dosing Weight: 55.7 kg (02/23/23) Medications Medications (14) Active Scheduled: (7) enoxaparin 40 mg/ 0.4mL syringe 40 mg 0.4 mL, Subcutaneous, qDay ertapenem 1 gram(s), IV Piggyback, q24h gabapentin 300 mg Capsule 300 mg 1 cap(s), Oral, qHS ketorolac 15 mg/mL vial 15 mg 1 mL, IV Push, q6h mirtazapine 15 mg tablet 15 mg 1 tab(s), Oral, qDay morphine 30 mg ER tablet 30 mg 1 tab(s), Oral, q12h senna 8.6 mg Tablet 17.2 mg 2 tab(s), Oral, qHS Continuous: (1) NS (0.9% nacl) 1,000 mL 1,000 mL, Intravenous, 20 mL/hr PRN: (6) LORAZEPam 1 mg Tablet 1 mg 1 tab(s), Oral, TID ondansetron 2 mg/ 1 mL 2 mL INJ 4 mg 2 mL, IV Push, q4h ondansetron 4 mg tablet 4 mg 1 tab(s), Oral, q6h oxycodone 5 mg tablet (immediate release) 10 mg 2 tab(s), Oral, q4h polyethylene glycol 3350 - UD packet 17 gram(s) 15 mL, Oral, qDay prochlorperazine 10 mg 2 mL, IV Piggyback, q6h Lab Results 02/28 06:05 WBC: 5.2 Hgb: 11.1 L Hct: 33.2 L Platelet: 448 Neutrophil %: 54.3 Glucose Level: 100 Sodium Level: 141 Potassium Level: 4.8 BUN: 13.0 Creatinine Lvl (s): 0.73 02/27 06:05 WBC: 6.6 Hgb: 11.8 L Hct: 36.2 Platelet: 519 H Neutrophil %: 59.6 Glucose Level: 91 Sodium Level: 138 Potassium Level: 4.7 BUN: 9.0 Creatinine Lvl (s): 0.72 EKG No qualifying data available. Assessment/Plan 1. Complicated UTI (urinary tract infection) 2. Bilateral flank pain 3. Nephrostomy status 4. Cervical cancer 5. Cancer related pain 6. Tobacco use 7. Anxiety 8. Asthma 9. Decreased appetite 10. Grief reaction 11. Slow transit constipation Complicated ESBL UTI/ Pyelonephritis - Urine culture obtained February 24, 2020 with a positive for ESBL. 10,000 - 50,000 cfu/ml. Sensitivities reviewed. - CT ABD/PELVIS completed showing Pelvic abscess versus mass. Discussed with primary team. Recommend IR aspiration. - Blood cultures no growth to date - Afebrile/no leukocytosis - Continue IV Ertapenem. Left nephrostomy tube in place, last exchanged 02/17/23. Patient now complaining of not urinating for 2 days, urethra pain and blood-tinged urine to the left nephrostomy tube. Urology consulted. Appreciate input. All other management per primary team Shared/split visit with my collaborating physician Dr. Margoth Martin This dictation was performed using voice recognition software and may include grammatical and/or spelling errors. Digitally Signed by CAMERON RICKS APRN-KANDY on 02/28/2023 10:42 AM [facility] [id number] Infectious disease Progress note Date of Service 02/27/23 Chief Complaint Abdominal pain Nausea and vomiting Subjective Patient is a 32-year-old female with a past medical history significant for Stage IIIB cervical cancer s/p chemoradiation currently in remission and history obstructive uropathy with left nephrostomytube in place (last exchanged 02/17/23). Patient presented to emergency department on February 23, 2023with complaints of flank pain and concern for urinary tract infection. Per documentation patient was having UTI symptoms several days prior to arrival. Patient called Dr. Martin's office and was placed on Bactrim. Patient completed prescribed course. Patient continued to have abdominal and back pain. She then presented to [place]. Patient was placed on meropenem. Patient urine culture came back positive for ESBL and infectious disease was consulted. CT ABD/PELVIS completed showing 2.4 cm peripherally enhancing mass within the inferior central pelvis. This may represent a necrotic neoplasm or small abscess. Patient resting in bed. Patient c/o difficulty with PO intake due to persistent nausea and vomiting. Patient states she is unable to keep liquids down. Patient c/o generalized abdominal pain, worse then yesterday. Patient c/o feeling feverish and intermittent episodes of chills/sweating. Objective Vitals and Measurements T: 36.7 C (Oral) TMIN: 36.6 C (Oral) TMAX: 36.8 C (Oral) HR: 77 RR: 16 BP: 102/65 SpO2: 92% Intake and Output 7AM Yesterday to 7AM Today Intake and Output (Last 24 hours) Intake Administration Information 320.00 Oral Intake 480.00 Output Urine Voided 300.00 Urostomy Output: 500.00 Stool Count 0.00 Total Summary Total Intake 800.00 Total Output 800.00 Fluid Balance 0.00 Physical Exam Vitals Signs(Last 24 hrs)__ Last Charted Minimum Maximum Temp 36.7(FEB 27 04:17) 36.7(FEB 27 04:17) 36.8(FEB 26 16:24) Resp Rate 16(FEB 27 08:35) 16(FEB 26 16:24) 16(FEB 26 16:24) SBP 102(FEB 27 08:35) 102(FEB 27 08:35) 130(FEB 26 19:57) DBP 65(FEB 27 08:35) 65(FEB 27 08:35) 88(FEB 26 19:57) Physical Exam General: No acute distress. Alert and Appropriate Skin: No rash. Warm, Dry, Intact. Right subclavian port in place. No signs of infection. HEENT: Head is normocephalic and atraumatic. No lesions. Pupils equal in size. Extraocular movements within normal limits. Nose: No septal deviation. Mouth: Oropharynx mucosa is without lesion. Neck: Supple. No lymphadenopathy, thyromegaly noted. Lungs: Bilaterally diminished breath sounds with no crepitation or wheeze. Unlabored Cardiovascular: Heart is regular rhythm, S1S2, No extra-audible heart tones Abdomen: Abdomen is soft. generalized abdominal tenderness with moderate palpation. Bowel sounds positive all four quadrants. Left nephrostomy tube in place with clear yellow urine Extremities: No clubbing, cyanosis or edema. Peripheral pulses palpable. No calf tenderness. Adequate peripheral circulation. Neurological: The patient is awake, oriented to time, people and place. Following simple commands, moving all extremities. Weight Dosing Weight: 55.7 kg (02/23/23) Dosing Weight: 55.7 kg (02/23/23) Medications Medications (12) Active Scheduled: (7) enoxaparin 40 mg/ 0.4mL syringe 40 mg 0.4 mL, Subcutaneous, qDay ertapenem 1 gram(s), IV Piggyback, q24h gabapentin 300 mg Capsule 300 mg 1 cap(s), Oral, qHS ketorolac 15 mg/mL vial 15 mg 1 mL, IV Push, q6h mirtazapine 15 mg tablet 15 mg 1 tab(s), Oral, qDay morphine 30 mg ER tablet 30 mg 1 tab(s), Oral, q12h senna 8.6 mg Tablet 17.2 mg 2 tab(s), Oral, qHS Continuous: (1) NS (0.9% nacl) 1,000 mL 1,000 mL, Intravenous, 20 mL/hr PRN: (4) LORAZEPam 1 mg Tablet 1 mg 1 tab(s), Oral, TID ondansetron 4 mg tablet 4 mg 1 tab(s), Oral, q6h oxycodone 5 mg tablet (immediate release) 10 mg 2 tab(s), Oral, q4h polyethylene glycol 3350 - UD packet 17 gram(s) 15 mL, Oral, qDay Lab Results 02/27 06:05 WBC: 6.6 Hgb: 11.8 L Hct: 36.2 Platelet: 519 H Neutrophil %: 59.6 Glucose Level: 91 Sodium Level: 138 Potassium Level: 4.7 BUN: 9.0 Creatinine Lvl (s): 0.72 02/26 04:53 WBC: 5.5 Hgb: 11.9 L Hct: 36.1 Platelet: 483 H Neutrophil %: 58.6 Glucose Level: 96 Sodium Level: 141 Potassium Level: 4.6 BUN: 9.0 Creatinine Lvl (s): 0.72 EKG No qualifying data available. Assessment/Plan 1. Complicated UTI (urinary tract infection) 2. Bilateral flank pain 3. Nephrostomy status 4. Cervical cancer 5. Cancer related pain 6. Tobacco use 7. Anxiety 8. Asthma 9. Decreased appetite 10. Grief reaction 11. Slow transit constipation Complicated ESBL UTI/ Pyelonephritis -Urine culture obtained February 24, 2020 with a positive for ESBL. -CT ABD/PELVIS completed showing 2.4 cm peripherally enhancing mass within the inferior central pelvis. This may represent a necrotic neoplasm or small abscess. -Blood cultures no growth to date -Afebrile/no leukocytosis - Continue IV Ertapenem. Will discuss with SEAM RU[facility]ER regarding possible IR aspiration. Left nephrostomy tube in place, last exchanged 02/17/23. Recommend urology consult. All other management per primary team Shared/split visit with my collaborating physician Dr. Margoth Martin This dictation was performed using voice recognition software and may include grammatical and/or spelling errors. Digitally Signed by CAMERON RICKS on 02/27/2023 02:49 PM Digitally Signed by CAMERON RICKS on 02/27/2023 02:57 PM [facility] [id number] Infectious disease Progress note Date of Service 02/27/23 Chief Complaint Abdominal pain Nausea and vomiting Subjective Patient is a 32-year-old female with a past medical history significant for Stage IIIB cervical cancer s/p chemoradiation currently in remission and history obstructive uropathy with left nephrostomytube in place (last exchanged 02/17/23). Patient presented to emergency department on February 23, 2023with complaints of flank pain and concern for urinary tract infection. Per documentation patient was having UTI symptoms several days prior to arrival. Patient called Dr. Martin's office and was placed on Bactrim. Patient completed prescribed course. Patient continued to have abdominal and back pain. She then presented to [place]. Patient was placed on meropenem. Patient urine culture came back positive for ESBL and infectious disease was consulted. CT ABD/PELVIS completed showing 2.4 cm peripherally enhancing mass within the inferior central pelvis. This may represent a necrotic neoplasm or small abscess. Patient resting in bed. Patient c/o difficulty with PO intake due to persistent nausea and vomiting. Patient states she is unable to keep liquids down. Patient c/o generalized abdominal pain, worse then yesterday. Patient c/o feeling feverish and intermittent episodes of chills/sweating. Objective Vitals and Measurements T: 36.7 C (Oral) TMIN: 36.6 C (Oral) TMAX: 36.8 C (Oral) HR: 77 RR: 16 BP: 102/65 SpO2: 92% Intake and Output 7AM Yesterday to 7AM Today Intake and Output (Last 24 hours) Intake Administration Information 320.00 Oral Intake 480.00 Output Urine Voided 300.00 Urostomy Output: 500.00 Stool Count 0.00 Total Summary Total Intake 800.00 Total Output 800.00 Fluid Balance 0.00 Physical Exam Vitals Signs(Last 24 hrs)__ Last Charted Minimum Maximum Temp 36.7(FEB 27 04:17) 36.7(FEB 27 04:17) 36.8(FEB 26 16:24) Resp Rate 16(FEB 27 08:35) 16(FEB 26 16:24) 16(FEB 26 16:24) SBP 102(FEB 27 08:35) 102(FEB 27 08:35) 130(FEB 26 19:57) DBP 65(FEB 27 08:35) 65(FEB 27 08:35) 88(FEB 26 19:57) Physical Exam General: No acute distress. Alert and Appropriate Skin: No rash. Warm, Dry, Intact. Right subclavian port in place. No signs of infection. HEENT: Head is normocephalic and atraumatic. No lesions. Pupils equal in size. Extraocular movements within normal limits. Nose: No septal deviation. Mouth: Oropharynx mucosa is without lesion. Neck: Supple. No lymphadenopathy, thyromegaly noted. Lungs: Bilaterally diminished breath sounds with no crepitation or wheeze. Unlabored Cardiovascular: Heart is regular rhythm, S1S2, No extra-audible heart tones Abdomen: Abdomen is soft. generalized abdominal tenderness with moderate palpation. Bowel sounds positive all four quadrants. Left nephrostomy tube in place with clear yellow urine Extremities: No clubbing, cyanosis or edema. Peripheral pulses palpable. No calf tenderness. Adequate peripheral circulation. Neurological: The patient is awake, oriented to time, people and place. Following simple commands, moving all extremities. Weight Dosing Weight: 55.7 kg (02/23/23) Dosing Weight: 55.7 kg (02/23/23) Medications Medications (12) Active Scheduled: (7) enoxaparin 40 mg/ 0.4mL syringe 40 mg 0.4 mL, Subcutaneous, qDay ertapenem 1 gram(s), IV Piggyback, q24h gabapentin 300 mg Capsule 300 mg 1 cap(s), Oral, qHS ketorolac 15 mg/mL vial 15 mg 1 mL, IV Push, q6h mirtazapine 15 mg tablet 15 mg 1 tab(s), Oral, qDay morphine 30 mg ER tablet 30 mg 1 tab(s), Oral, q12h senna 8.6 mg Tablet 17.2 mg 2 tab(s), Oral, qHS Continuous: (1) NS (0.9% nacl) 1,000 mL 1,000 mL, Intravenous, 20 mL/hr PRN: (4) LORAZEPam 1 mg Tablet 1 mg 1 tab(s), Oral, TID ondansetron 4 mg tablet 4 mg 1 tab(s), Oral, q6h oxycodone 5 mg tablet (immediate release) 10 mg 2 tab(s), Oral, q4h polyethylene glycol 3350 - UD packet 17 gram(s) 15 mL, Oral, qDay Lab Results 02/27 06:05 WBC: 6.6 Hgb: 11.8 L Hct: 36.2 Platelet: 519 H Neutrophil %: 59.6 Glucose Level: 91 Sodium Level: 138 Potassium Level: 4.7 BUN: 9.0 Creatinine Lvl (s): 0.72 02/26 04:53 WBC: 5.5 Hgb: 11.9 L Hct: 36.1 Platelet: 483 H Neutrophil %: 58.6 Glucose Level: 96 Sodium Level: 141 Potassium Level: 4.6 BUN: 9.0 Creatinine Lvl (s): 0.72 EKG No qualifying data available. Assessment/Plan 1. Complicated UTI (urinary tract infection) 2. Bilateral flank pain 3. Nephrostomy status 4. Cervical cancer 5. Cancer related pain 6. Tobacco use 7. Anxiety 8. Asthma 9. Decreased appetite 10. Grief reaction 11. Slow transit constipation Complicated ESBL UTI/ Pyelonephritis -Urine culture obtained February 24, 2020 with a positive for ESBL. -CT ABD/PELVIS completed showing 2.4 cm peripherally enhancing mass within the inferior central pelvis. This may represent a necrotic neoplasm or small abscess. -Blood cultures no growth to date -Afebrile/no leukocytosis - Continue IV Ertapenem. Will discuss with SEAM RU[facility]ER regarding possible IR aspiration. Left nephrostomy tube in place, last exchanged 02/17/23. Recommend urology consult. All other management per primary team Shared/split visit with my collaborating physician Dr. Margoth Martin This dictation was performed using voice recognition software and may include grammatical and/or spelling errors. Digitally Signed by CAMEORN RICKS on 02/27/2023 02:49 PM Digitally Signed by CAMERON RICKS on 02/27/2023 02:57 PM [facility] [id number] Note ORIGINAL EXAMINATION: CT OF THE ABDOMEN AND PELVIS WITH CONTRAST 02/26/2023 9:11 pm TECHNIQUE: CT of the abdomen and pelvis was performed with the administration of intravenous contrast. Multiplanar reformatted images are provided for review. Automated exposure control, iterative reconstruction, and/or weight based adjustment of the mA/kV was utilized to reduce the radiation dose to as low as reasonably achievable. COMPARISON: CT urogram 01/01/2023 HISTORY: ORDERING SYSTEM PROVIDED HISTORY: Reason for Exam: complicated UTI, abd pain, hx cervical ca with mass into kidney, nephrostomy tube placed 2019 Complicated UTI/ Abdominal pain FINDINGS: Lower Chest: Included lung bases are clear. Heart size is normal. Organs: Liver, gallbladder, spleen, pancreas, and adrenals are within normal limits. Right kidney is normal. Left percutaneous nephrostomy within an inferior pole calyx and left double-J ureteral stent extending from an inferior pole calyx into the bladder. Bladder wall thickening and mild surrounding soft tissue inflammation. GI/Bowel: Small bowel is not dilated. Peripherally enhancing fluid collection within the inferior central pelvis measuring 2.4 x 2 cm, with questionable area of communication with the bowel (series 2, image 84 and series 602, image 68). Normal appendix. No free air. Pelvis: Previous hysterectomy. Infiltration of the inferior pelvic peritoneal fat and perirectal fat may be inflammatory or may reflect post radiation changes. Peritoneum/Retroperitoneum: Aorta is normal in course and caliber, with noncalcified atherosclerosis. Portal and hepatic veins are patent. No lymphadenopathy. Bones/Soft Tissues: Trace gas within the anterior abdominal soft tissues may be related to subcutaneous injections. No acute osseous abnormality or suspicious osseous lesion. IMPRESSION: 2.4 cm peripherally enhancing mass within the inferior central pelvis. This may represent a necrotic neoplasm or small abscess. Infiltration of pelvic peritoneal fat and perirectal fat may reflect inflammation, post radiation changes, or a combination of the two. Bladder wall thickening and soft tissue inflammation compatible with known cystitis. Chronic and incidental findings as above. I have personally reviewed the images of this examination and agree with the resident's findings and interpretation. Interpreted by: Alec Pedroza MD Preliminary Report By: Alivia Larson Electronically signed By Alec Pedroza MD Dictated Date: 02/27/2023 3:30:06 AM Prelim Date: 02/27/2023 3:43:23 AM Sign Date: 02/27/2023 4:48:38 AM Ordering Provider: CAMERON [facility]04-26-2023 Note ORIGINAL EXAMINATION: CT OF THE ABDOMEN AND PELVIS WITH CONTRAST 02/26/2023 9:11 pm TECHNIQUE: CT of the abdomen and pelvis was performed with the administration of intravenous contrast. Multiplanar reformatted images are provided for review. Automated exposure control, iterative reconstruction, and/or weight based adjustment of the mA/kV was utilized to reduce the radiation dose to as low as reasonably achievable. COMPARISON: CT urogram 01/01/2023 HISTORY: ORDERING SYSTEM PROVIDED HISTORY: Reason for Exam: complicated UTI, abd pain, hx cervical ca with mass into kidney, nephrostomy tube placed 2020 Complicated UTI/ Abdominal pain FINDINGS: Lower Chest: Included lung bases are clear. Heart size is normal. Organs: Liver, gallbladder, spleen, pancreas, and adrenals are within normal limits. Right kidney is normal. Left percutaneous nephrostomy within an inferior pole calyx and left double-J ureteral stent extending from an inferior pole calyx into the bladder. Bladder wall thickening and mild surrounding soft tissue inflammation. GI/Bowel: Small bowel is not dilated. Peripherally enhancing fluid collection within the inferior central pelvis measuring 2.4 x 2 cm, with questionable area of communication with the bowel (series 2, image 84 and series 602, image 68). Normal appendix. No free air. Pelvis: Previous hysterectomy. Infiltration of the inferior pelvic peritoneal fat and perirectal fat may be inflammatory or may reflect post radiation changes. Peritoneum/Retroperitoneum: Aorta is normal in course and caliber, with noncalcified atherosclerosis. Portal and hepatic veins are patent. No lymphadenopathy. Bones/Soft Tissues: Trace gas within the anterior abdominal soft tissues may be related to subcutaneous injections. No acute osseous abnormality or suspicious osseous lesion. IMPRESSION: 2.4 cm peripherally enhancing mass within the inferior central pelvis. This may represent a necrotic neoplasm or small abscess. Infiltration of pelvic peritoneal fat and perirectal fat may reflect inflammation, post radiation changes, or a combination of the two. Bladder wall thickening and soft tissue inflammation compatible with known cystitis. Chronic and incidental findings as above. I have personally reviewed the images of this examination and agree with the resident's findings and interpretation. Interpreted by: Alec Pedroza MD Preliminary Report By: Alivia Larson Electronically signed By Alec Pedroza MD Dictated Date: 02/27/2023 3:30:06 AM Prelim Date: 02/27/2023 3:43:23 AM Sign Date: 02/27/2023 4:48:38 AM Ordering Provider: [facility]04-26-2023 Infectious disease Consult note Date of Service 02/26/23 Reason for Consultation Complicated UTI Referring Physician Dr. Angeles History of Present Illness Patient is a 32-year-old female with a past medical history significant for Stage IIIB cervical cancer s/p chemoradiation currently in remission and history obstructive uropathy with left nephrostomytube in place (last exchanged 02/17/23). Patient presented to emergency department on February 23, 2023with complaints of flank pain and concern for urinary tract infection. Per documentation patient was having UTI symptoms several days prior to arrival. Patient called Dr. Martin's office and was placed on Bactrim. Patient completed prescribed course. Patient continued to have abdominal and back pain. She then presented to [place]. Patient was placed on meropenem. Patient urine culture came back positive for ESBL and infectious disease was consulted. Patient resting bed. No family at bedside. Patient planes of nausea and vomiting. Patient states she is vomiting undigested food. Patient denies any diarrhea. Patient complains of abdominal pain. Bilateral flank pain worse on the left. Rating pain an 8 out of 8. Patient states that flank pain has been occurring for several months. Patient complains of urethral pain. She denies any frequency, urgency or hesitancy. Patient complains of night sweats but contributes this from going through menopause. Review of Systems Review of Systems: Reviewed in detail, including general health, HEENT, cardiovascular, respiratory, gastrointestinal, genitourinary, endocrine, musculoskeletal, neurologic, vascular, skin, and psychiatric. All are negative except for those listed in the History of Present Illness Physical Exam Vitals and Measurements T: 36.8 C (Oral) TMIN: 36.5 C (Oral) TMAX: 36.8 C (Oral) HR: 100 RR: 16 BP: 93/60 SpO2: 98% Weight Dosing Weight: 55.7 kg (02/23/23) Dosing Weight: 55.7 kg (02/23/23) Physical Exam General: No acute distress. Alert and Appropriate Skin: No rash. Warm, Dry, Intact. Right subclavian port in place. No signs of infection. HEENT: Head is normocephalic and atraumatic. No lesions. Pupils equal in size. Extraocular movements within normal limits. Nose: No septal deviation. Mouth: Oropharynx mucosa is without lesion. Neck: Supple. No lymphadenopathy, thyromegaly noted. Lungs: Bilaterally diminished breath sounds with no crepitation or wheeze. Unlabored Cardiovascular: Heart is regular rhythm, S1S2, No extra-audible heart tones Abdomen: Abdomen is soft. CVA tenderness. Bowel sounds positive all four quadrants. Left nephrostomy tube in place with clear yellow urine Extremities: No clubbing, cyanosis or edema. Peripheral pulses palpable. No calf tenderness. Adequate peripheral circulation. Neurological: The patient is awake, oriented to time, people and place. Following simple commands, moving all extremities. Lab Results 02/26 04:53 WBC: 5.5 Hgb: 11.9 L Hct: 36.1 Platelet: 483 H Neutrophil %: 58.6 Glucose Level: 96 Sodium Level: 141 Potassium Level: 4.6 BUN: 9.0 Creatinine Lvl (s): 0.72 02/25 05:57 WBC: 5.4 Hgb: 11.3 L Hct: 34.2 Platelet: 460 H Neutrophil %: 60.6 Glucose Level: 85 Sodium Level: 141 Potassium Level: 4.4 BUN: 5.0 L Creatinine Lvl (s): 0.67 Assessment/Plan 1. Complicated UTI (urinary tract infection) 2. Bilateral flank pain 3. Nephrostomy status 4. Cervical cancer 5. Cancer related pain 6. Tobacco use 7. Anxiety 8. Asthma 9. Decreased appetite 10. Grief reaction 11. Slow transit constipation Complicated ESBL UTI/ Suspected pyelonephritis/ -Urine culture obtained February 24, 2020 with a positive for ESBL. -Blood cultures no growth to date -Afebrile/no leukocytosis - Will transition IV meropenem to IV Ertapenem - CT ABD/PELVIS w/ contrast pending Left nephrostomy tube in place, last exchanged 02/17/23 All other management per primary team Shared/split visit with my collaborating physician Dr. Margoth Martin This dictation was performed using voice recognition software and may include grammatical and/or spelling errors. Problem List/Past Medical History Ongoing Acute kidney injury Anxiety Asthma Bilateral flank pain Cervical cancer Complicated UTI (urinary tract infection) Decreased appetite Dehydration DVT prophylaxis History of chemotherapy History of radiation therapy Left flank pain Moderate protein-calorie malnutrition Nausea and vomiting Nephrostomy status Obstructive uropathy Port-A-Cath in place Premature menopause Pyelonephritis Historical Cervicitis Chronic kidney disease, stage 3 (moderate) Encounter for antineoplastic chemotherapy ESBL (extended spectrum beta-lactamase) producing bacteria infection History of COVID-19 Hydronephrosis of left kidney Mass of cervix Tinnitus Procedure/Surgical History Nephrostomy with tube drainage: 01/10/21 JJ stent: 11/15/20 Radiation: 06/2020 Cervical biopsy: 2019 Tumor cells, benign: 2001 Nephrostomy with tube drainage Medications Inpatient Ativan, 1 mg= 1 tab(s), Oral, TID, PRN Dilaudid, 0.5 mg= 0.5 mL, IV Push, q4h, PRN Dilaudid, 1 mg= 1 mL, IV Push, q4h, PRN gabapentin, 300 mg= 1 cap(s), Oral, qHS ketorolac, 15 mg= 1 mL, IV Push, q6h lidocaine 1% preservative-free injectable solution, 2.5 mg= 0.25 mL, Intradermal, prep pharm lidocaine 1% preservative-free injectable solution, 2.5 mg= 0.25 mL, Intradermal, prep pharm Lovenox, 40 mg= 0.4 mL, Subcutaneous, qDay Merrem Miralax Powder Packet, 17 gram(s)= 15 mL, Oral, qDay mirtazapine, 15 mg= 1 tab(s), Oral, qDay MS Contin, 30 mg= 1 tab(s), Oral, q12h Normal Saline 1,000 mL, 1000 mL, Intravenous ondansetron, 4 mg= 1 tab(s), Oral, q6h, PRN oxyCODONE 5 mg oral tablet ( IMMEDIATE release ), 10 mg= 2 tab(s), Oral, q4h, PRN senna, 17.2 mg= 2 tab(s), Oral, qHS Home Ativan 1 mg oral tablet, 1 mg= 1 tab(s), Oral, TID, PRN gabapentin 300 mg oral capsule, 300 mg= 1 cap(s), Oral, qHS mirtazapine 15 mg oral tablet, 15 mg= 1 tab(s), Oral, qDay, 3 refills ondansetron 4 mg oral tablet, 4 mg= 1 tab(s), Oral, q6h, PRN oxyCODONE 10 mg oral tablet ( IMMEDIATE release ), 10 mg= 1 tab(s), Oral, q6h, PRN Allergies Oranges penicillin Social History Alcohol - Denies Alcohol Use, 06/13/2020 Use: Current. Type: Beer. Frequency: 1-2 times per week., 12/21/2021 Home/Environment - No Risk, 06/13/2020 Domestic Concerns: None. Living situation: Home/Independent. Safe place to go: Yes. Lives In: Mobile home, 1st floor bedroom, 1st floor bathroom. Current Home Treatments None. Professional Skilled Services or Special Community Resources None. Financial concerns: No. Marital Status: Unmarried., 06/13/2020 Nutrition/Health - No Risk, 06/13/2020 Type of diet: Regular. Appetite Fair. Eating Difficulties None. Caffeine intake amount: 1 can pop per day., 06/13/2020 Sexual Sexually active: Yes. First active at age: 18 Years. Current partners: 1. Number of lifetime partners: 7. Self described orientation: Straight or heterosexual. Other contraceptive use: condoms. History of sexual abuse: No. Gender Identity: Identifies as female., 04/12/2020 Substance Abuse - Denies Substance Abuse, 06/13/2020 Use: Never., 04/12/2020 Tobacco Nicotine Use: 5-9 cigarettes (between 1/4 to 1/2 pack)/day in last 30 days. Type: Cigarettes. Tobacco use per day: 10. Number of years: 10. Started at age: 19 Years. Previous treatment: None. Ready to change: Yes., 04/12/2020 Family History Alcohol abuse: Father. Asthma: Mother. Bladder cancer: Negative: Mother, Father, Sister, Brother, Daughter, Son and Grandparent. Breast cancer: Mother. COPD - Chronic obstructive pulmonary disease: Mother. Cancer: Sister. Diabetes: Grandparent. Heart attack: Mother. Heart disease: Mother. Hypertension: Mother. Kidney stone: Mother. Renal cancer: Negative: Mother, Father, Sister, Brother, Daughter, Son and Grandparent. Stroke: Father and Grandparent. Substance abuse: Father. Immunizations hepatitis B pediatric vaccine: 0 unknown unit (06/16/01) hepatitis B pediatric vaccine: 0 unknown unit (06/21/98) measles/mumps/rubella virus vaccine: 0 unknown unit (06/16/01) Digitally Signed by CAMERON RICKS on 02/26/2023 03:51 PM [facility] [id number] Palliative care Progress note Code Status Code Status - Ordered -- 02/23/23 16:01:00 EDT, Full Code, Constant Order Chief Complaint Pt c/o abdominal and back pain for the past two weeks, rates pain 9/10. Medications Medications (12) Active Scheduled: (7) enoxaparin 40 mg/ 0.4mL syringe 40 mg 0.4 mL, Subcutaneous, qDay gabapentin 300 mg Capsule 300 mg 1 cap(s), Oral, qHS ketorolac 15 mg/mL vial 15 mg 1 mL, IV Push, q6h meropenem 1,000 mg, IV Piggyback, q8h mirtazapine 15 mg tablet 15 mg 1 tab(s), Oral, qDay morphine 30 mg ER tablet 30 mg 1 tab(s), Oral, q12h senna 8.6 mg Tablet 17.2 mg 2 tab(s), Oral, qHS Continuous: (1) NS (0.9% nacl) 1,000 mL 1,000 mL, Intravenous, 20 mL/hr PRN: (4) LORAZEPam 1 mg Tablet 1 mg 1 tab(s), Oral, TID ondansetron 4 mg tablet 4 mg 1 tab(s), Oral, q6h oxycodone 5 mg tablet (immediate release) 10 mg 2 tab(s), Oral, q4h polyethylene glycol 3350 - UD packet 17 gram(s) 15 mL, Oral, qDay Physical Exam General: Young female, in no acute distress Neurologic: Alert and oriented, appropriate Heart: Regular, no edema Lungs: Clear throughout, respirations easy and regular Abdomen: Soft, bowel sounds present, non tender Psychiatric: mood improved grieving appropriately. Does not appear agitated : Left nephrostomy tube, with clear yellow urine noted Vitals and Measurements T: 36.8 C (Oral) TMIN: 36.5 C (Oral) TMAX: 36.8 C (Oral) HR: 100 RR: 16 BP: 93/60 SpO2: 98% Weight Dosing Weight: 55.7 kg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 management. Recommend MiraLAX 17 g daily Recommend senna 17.2 mg nightly 9. Tobacco history Patient verbalizes she quit smoking December 2022, has been vaping since. Review of labs, historical records, progress notes, and diagnostics Thank you for requesting our participation in the care of your patient. We will continue to follow during their hospitalization. Problem List/Past Medical History Ongoing Acute kidney injury Anxiety Asthma Bilateral flank pain Cervical cancer Complicated UTI (urinary tract infection) Decreased appetite Dehydration DVT prophylaxis History of chemotherapy History of radiation therapy Left flank pain Moderate protein-calorie malnutrition Nausea and vomiting Nephrostomy status Obstructive uropathy Port-A-Cath in place Premature menopause Pyelonephritis Historical Cervicitis Chronic kidney disease, stage 3 (moderate) Encounter for antineoplastic chemotherapy ESBL (extended spectrum beta-lactamase) producing bacteria infection History of COVID-19 Hydronephrosis of left kidney Mass of cervix Tinnitus Procedure/Surgical History Nephrostomy with tube drainage: 01/10/21 JJ stent: 11/15/20 Radiation: 06/2020 Cervical biopsy: 2019 Tumor cells, benign: 2001 Nephrostomy with tube drainage Medications Inpatient Ativan, 1 mg= 1 tab(s), Oral, TID, PRN Dilaudid, 1 mg= 1 mL, IV Push, q2h, PRN Dilaudid, 0.5 mg= 0.5 mL, IV Push, q2h, PRN gabapentin, 300 mg= 1 cap(s), Oral, qHS lidocaine 1% preservative-free injectable solution, 2.5 mg= 0.25 mL, Intradermal, prep pharm lidocaine 1% preservative-free injectable solution, 2.5 mg= 0.25 mL, Intradermal, prep pharm Lovenox, 40 mg= 0.4 mL, Subcutaneous, qDay Merrem mirtazapine, 15 mg= 1 tab(s), Oral, qDay Normal Saline 1,000 mL, 1000 mL, Intravenous ondansetron, 4 mg= 1 tab(s), Oral, q6h, PRN oxyCODONE 5 mg oral tablet ( IMMEDIATE release ), 10 mg= 2 tab(s), Oral, q4h, PRN Home Ativan 1 mg oral tablet, 1 mg= 1 tab(s), Oral, TID, PRN gabapentin 300 mg oral capsule, 300 mg= 1 cap(s), Oral, qHS mirtazapine 15 mg oral tablet, 15 mg= 1 tab(s), Oral, qDay, 3 refills ondansetron 4 mg oral tablet, 4 mg= 1 tab(s), Oral, q6h, PRN oxyCODONE 10 mg oral tablet ( IMMEDIATE release ), 10 mg= 1 tab(s), Oral, q6h, PRN Allergies Oranges penicillin Social History Alcohol - Denies Alcohol Use, 06/13/2020 Use: Current. Type: Beer. Frequency: 1-2 times per week., 12/21/2021 Home/Environment - No Risk, 06/13/2020 Domestic Concerns: None. Living situation: Home/Independent. Safe place to go: Yes. Lives In: Mobile home, 1st floor bedroom, 1st floor bathroom. Current Home Treatments None. Professional Skilled Services or Special Community Resources None. Financial concerns: No. Marital Status: Unmarried., 06/13/2020 Nutrition/Health - No Risk, 06/13/2020 Type of diet: Regular. Appetite Fair. Eating Difficulties None. Caffeine intake amount: 1 can pop per day., 06/13/2020 Sexual Sexually active: Yes. First active at age: 18 Years. Current partners: 1. Number of lifetime partners: 7. Self described orientation: Straight or heterosexual. Other contraceptive use: condoms. History of sexual abuse: No. Gender Identity: Identifies as female., 04/12/2020 Substance Abuse - Denies Substance Abuse, 06/13/2020 Use: Never., 04/12/2020 Tobacco Nicotine Use: 5-9 cigarettes (between 1/4 to 1/2 pack)/day in last 30 days. Type: Cigarettes. Tobacco use per day: 10. Number of years: 10. Started at age: 19 Years. Previous treatment: None. Ready to change: Yes., 04/12/2020 Family History Alcohol abuse: Father. Asthma: Mother. Bladder cancer: Negative: Mother, Father, Sister, Brother, Daughter, Son and Grandparent. Breast cancer: Mother. COPD - Chronic obstructive pulmonary disease: Mother. Cancer: Sister. Diabetes: Grandparent. Heart attack: Mother. Heart disease: Mother. Hypertension: Mother. Kidney stone: Mother. Renal cancer: Negative: Mother, Father, Sister, Brother, Daughter, Son and Grandparent. Stroke: Father and Grandparent. Substance abuse: Father. Code Status Code Status - Ordered -- 02/23/23 16:01:00 EDT, Full Code, Constant Order Digitally Signed by NUBIA POWERS on 02/24/2023 02:58 PM [id number] History and physical note Date of Service 02/23/2023 Chief Complaint Pt c/o abdominal and back pain for the past two weeks, rates pain 9/10. History of Present Illness 32 yo Woman with history of Stage IIIB cervical cancer s/p chemoradiation currently in remission, presents to [place] emergency room for concern for UTI and flank pain. Patient reports she started feeling she was having UTI symptoms several days ago. She called in to Dr. Martin's office and was prescribed Bactrim and was to follow-up for an appointment few days later. However patient hadto cancel this appointment. She did finish her Bactrim course and reports her symptoms improved butshe still has flank pain bilaterally and she says she has not felt well. Denies known fevers. Denies nausea or vomiting. Tolerating p.o.. Having normal bowel movements. She has abdominal pain in the l eft lower pelvis. She reports she has not voided from her urethra in over a month. She just recently had left nephrostomy tube exchange 02/17/2023. She noted some blood in her nephrostomy bag last couple of days up until yesterday, however today her urine has been clear and yellow. In the emergency room she had a dose of morphine and a dose of Zofran. Blood culture and urine culture sent. 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 Menarche age 14. Amenorrheic since initiation of Chemoradiation. Denies mammogram ever. Colonoscopy in 2020. Denies history of STDs. Not sexually active. Family History Mother with breast cancer Sister with cervical cancer Grandmother with cervical cancer Aunts with cervical cancer Cousins with cervical cancer ONCOLOGY HISTORY: - 04/04/2020: CT scan abdomen and pelvis. [facility]. Thickened cervical wall with involvementof the lower uterine segment, highly concerning for malignancy. There is involvement of the left ureter resulting in left hydronephrosis and hydroureter. Mildly enlarged right external iliac lymph node measuring 1.4 x 1.1 x 1.2 cm. - 04/13/2020: CT thorax. No evidence of active malignancy in the thorax. - 04/13/2020: IR nephrostomy tube insertion on the left. - 04/13/2020: MRI of the pelvis with contrast. Large uterine mass with extension to the pelvic fat and possible involvement of the mesorectal fascia. There is a prominent but not pathologically enlarged left pelvic lymph node which could be metastatic. Large cervical mass measuring 4.7 x 5.8 cm. - : Examination under Anesthesia, Cystourethroscopy, Cervical biopsies, Proctoscopy - 04/26/2020 Week #1 Cisplatin 40mg/m2 - 05/03/2020 Week #2 Cisplatin 20mg/m2 - 05/10/2020 Week #3 Cisplatin 20mg/m2 - 05/17/2020 Week #4 Cisplatin 20mg/m2 - 05/24/2020 Week #5 Cisplatin 20mg/m2 - 05/31/2020 Week #6 Cisplatin 20mg/m2 - 08/18/2020: CT urogram. Left percutaneous nephrostomy tube in place. Minimal left upper pole striated nephrogram. This finding is nonspecific and may be seen with inflammation or obstruction. Sincethere is no significant adjacent infiltrative changes within the perinephric fat, this could potentially be indicative of minimal left side obstruction. Improvement of the cervix lesion since the prior exam, diminished in size since prior study. - 12/07/2020 PET/CT no abnormal uptake at the uterine cervix, FDG avid lymphadenopathy or metastatic disease is seen. - 2020 CT abdomen and pelvis decreased left nephrogram with ectasia of the left upper tract and enhancement of the uroepithelium lining is worrisome for obstruction and/or infection following interval ureteral stent removal. - 01/09/2021 MRI of the pelvis treated disease with no significant residual tumor identified on this exam. Mild infiltrative change within the deep pelvic fat is presumably the result of radiation therapy, and attention to follow-up is recommended. Re-demonstration of mildly dilated left ureter and collecting system, compatible of history of pyelonephritis. RADIATION SUMMARY: Dates of treatment: 04/26/2020 - 06/07/2020 Treatment details : Initially the pelvis was treated to a dose of 4500 cGy in 25 fractions using intensity modulated radiation therapy with 6 MV photons. Following this dose the parametrium was boosted an additional 540 cGy in 3 fractions through AP PA quintero with midline block taken her final pelvic tumor dose to 5040 centigray. She was treated with concurrent cisplatin based chemotherapy. The patient then underwent for intracavitary brachii therapy applications with [id number] iridium 192afterloading device utilizing a tandem and ring. 2400 cGy was delivered at 600 cGy per fraction to point A from June 14, 2020 through July 11, 2020. The plan was to deliver 5 brachytherapy applications, however, the patient failed to show for surgery 3 times. Therefore, the decision to foregothe last treatment was made as it had been nearly 3 months since initiating therapy. Course: C1 Pelvis Treatment Site Ref. ID Energy Dose/Fx (cGy) #Fx Total Dose (cGy) Start Date End Date Elapsed Days IMRT [facility] Pelvis 6X 180 4,500 04/26/2020 06/02/2020 37 3D PM Bst 18X 180 / 540 06/05/2020 06/07/2020 2 GENETIC TESTING: - Patient had genetic testing sent through [facility]. No reportable somatic or germline pathogenic or actionable mutations were found. Tumor mutational burden was 39th percentile. Microsatellite instability status stable. Somatic variants of unknown significance were found in PRKDC, TRAF3, AGUSTIN, ERBB4, and CXCR4. Variants of unknown significance and germline mutations were found in BRCA2 and RAD51C.DNA mismatch repair protein expression was normal. PD-L1 expression was positive. Review of Systems See HPI. All other review of systems are negative. Physical Exam Vitals and Measurements T: 36.5 C (Temporal Artery) HR: 94 RR: 18 BP: 127/82 SpO2: 98% WT: 55.7 kg Weight Dosing Weight: 55.7 kg (02/23/23) General: A&Ox3, no apparent distress Resp: clear to auscultation bilaterally CV: normal rate and rhythm Abdomen: Soft, mild tenderness LLQ but no guarding or rebound tenderness, positive bowel sounds throughout : Reports CVA tenderness bilaterally Skin: Dressing over left nephrostomy tube dry and intact. No drainage or erythema around dressing noted. Right port-a-cath site appears healthy. No erythema. Ext: No lower extremity edema. No cyanosis. No erythema UOP: moderate amount of clear, yellow urine in left nephrostomy tube Lab Results 36hr Labs 02/23 1236 Creatinine Lvl (s) 0.60 Albumin Level 3.2 Alk Phos 93 Bili Total 0.20 BUN 7.0 L Calcium Lvl 9.0 Chloride 108 CO2 25 Glucose Level 94 Lactic Acid Lvl 0.8 Potassium Level 3.8 Sodium Level 138 Total Protein 6.4 BUN/Creatinine Ratio 11.7 Globulin 3.2 A/G Ratio 1.0 AST/SGOT 15 ALT/SGPT 9 L Electrolyte Balance 5.0 GFR Non- >60 GFR >60 Hct 35.1 Hgb 11.7 L MCH 32.6 MCHC 33.2 MCV 98.0 MPV 6.6 Platelet 455 H RBC 3.59 L RDW 14.9 WBC 10.5 Lymphocyte % 16.5 L Monocyte % 7.1 Neutrophil % 73.0 Eosinophil % 2.4 Basophil % 1.0 Neutrophil, Absolute 7.6 Lymphocyte, Absolute 1.7 Monocyte, Absolute 0.7 Eosinophil, Absolute 0.2 Basophil, Absolute 0.1 Monocyte Distribution Width 20.71 H Culture Blood See Flowsheet Culture Blood See Flowsheet UA Appear See Flowsheet UA Bili See Flowsheet UA Blood See Flowsheet UA Color See Flowsheet UA Glucose See Flowsheet UA Ketones See Flowsheet UA Leuk Est See Flowsheet UA Nitrite See Flowsheet UA Protein See Flowsheet UA RBC See Flowsheet UA Squam Epithe See Flowsheet UA Urobilinogen See Flowsheet UA WBC See Flowsheet UA pH See Flowsheet UA Spec Grav See Flowsheet UA Specimen Typ See Flowsheet UA Crenated RBC See Flowsheet 02/23 1206 Urine See Flowsheet Assessment/Plan Patient is a 32 yo woman with a history of stage IIIB cervical cancer s/p chemoradiationiin remission, has a history obstructive uropathy with left nephrostomy tube in place; admitted for pelvic pain and complicated urinary tract infection. Admit to regular floor Condition: Stable Vitals: q4hr Activity: Ambulate, up to chair Diet: Regular IVF: NS 75 cc/hr DVT Prophylaxis: SCDs, Heparin 5000 U TID 1. Complicated UTI (urinary tract infection) - Recent UTI symptoms, patient called in to office. Was not able to make appointment but took Bactrim x 5 days which she finished few days ago. Symptoms improved - 02/23 UA Large blood, 100 protein, small leuks, 10-20 RBC, 5-10 WBC, squams 3-5 - Urine culture pending - Recurrent history of complicated urinary tract infection with ESBL / E. coli / Enterococcus / Klebsiella pneumonia - 01/01 Urogram: No evidence of right urinary tract obstruction - Cr 0.6, wnl - WBC 10.5 wnl - Denies fevers, chills. VS wnl 2. Bilateral flank pain -Patient reports has had for some time -Reports has not made urine in > 1 month. Has left nephrostomy tube only. Just had exchanged 02/17/2023 -01/01 Urogram showed no evidence of right urinary tract obstruction -Pain control with home pain meds and dlaudid for breakthrough 3. Cervical cancer - Stage IIIB SCC of cervix - S/p Chemoradiation, currently in remission -Recent CT 08/02/22 unremarkable for signs of cancer recurrence -Recent Pap smear (07/15) negative for cervical dysplasia, however positive for HPV. For 6 months follow up per Dr. Martin's last note - Port-A-Cath in place 4. Tobacco use - For Nicotine patch if patient desires - Smokes 1/2 PPD 5. Anxiety - Declined counseling - Continue Ativan home dose TID PRN 6. Asthma - asymptomatic 7. Nephrostomy status - Initially placed in 2019. - Last exchanged 02/17/2023 8. Cancer related pain -on oxycodone 10mg q6h and gabapetin at home -IV dilaudid added prn for breakthrough 9. Decreased appetite - On mirtazapine for appetite stimulant, continue Dispo: Meropenem. Urine culture pending. Pain control. Discussed with Dr. Hilliard who agrees with plan. Problem List/Past Medical History Ongoing Acute kidney injury Anxiety Asthma Cervical cancer Complicated UTI (urinary tract infection) Decreased appetite Dehydration DVT prophylaxis History of chemotherapy History of radiation therapy Left flank pain Moderate protein-calorie malnutrition Nausea and vomiting Nephrostomy status Obstructive uropathy Port-A-Cath in place Premature menopause Pyelonephritis Historical Cervicitis Chronic kidney disease, stage 3 (moderate) Encounter for antineoplastic chemotherapy ESBL (extended spectrum beta-lactamase) producing bacteria infection History of COVID-19 Hydronephrosis of left kidney Mass of cervix Tinnitus Procedure/Surgical History Nephrostomy with tube drainage: 01/10/21 JJ stent: 11/15/20 Radiation: 06/2020 Cervical biopsy: 2019 Tumor cells, benign: 2001 Nephrostomy with tube drainage Medications Home Medications (7) Active Ativan 1 mg oral tablet 1 mg = 1 tab(s), PRN, Oral, TID gabapentin 300 mg oral capsule 300 mg = 1 cap(s), Oral, qHS LORazepam 1 mg oral tablet 1 mg = 1 tab(s), PRN, Oral, TID mirtazapine 15 mg oral tablet 15 mg = 1 tab(s), Oral, qDay ondansetron 4 mg oral tablet ondansetron 4 mg oral tablet 4 mg = 1 tab(s), PRN, Oral, q6h oxyCODONE 10 mg oral tablet ( IMMEDIATE release ) 10 mg = 1 tab(s), PRN, Oral, q6h Allergies Oranges penicillin Social History Alcohol - Denies Alcohol Use, 06/13/2020 Use: Current. Type: Beer. Frequency: 1-2 times per week., 12/21/2021 Home/Environment - No Risk, 06/13/2020 Domestic Concerns: None. Living situation: Home/Independent. Safe place to go: Yes. Lives In: Mobile home, 1st floor bedroom, 1st floor bathroom. Current Home Treatments None. Professional Skilled Services or Special Community Resources None. Financial concerns: No. Marital Status: Unmarried., 06/13/2020 Nutrition/Health - No Risk, 06/13/2020 Type of diet: Regular. Appetite Fair. Eating Difficulties None. Caffeine intake amount: 1 can pop per day., 06/13/2020 Sexual Sexually active: Yes. First active at age: 18 Years. Current partners: 1. Number of lifetime partners: 7. Self described orientation: Straight or heterosexual. Other contraceptive use: condoms. History of sexual abuse: No. Gender Identity: Identifies as female., 04/12/2020 Substance Abuse - Denies Substance Abuse, 06/13/2020 Use: Never., 04/12/2020 Tobacco Nicotine Use: 5-9 cigarettes (between 1/4 to 1/2 pack)/day in last 30 days. Type: Cigarettes. Tobacco use per day: 10. Number of years: 10. Started at age: 19 Years. Previous treatment: None. Ready to change: Yes., 04/12/2020 Family History Alcohol abuse: Father. Asthma: Mother. Bladder cancer: Negative: Mother, Father, Sister, Brother, Daughter, Son and Grandparent. Breast cancer: Mother. COPD - Chronic obstructive pulmonary disease: Mother. Cancer: Sister. Diabetes: Grandparent. Heart attack: Mother. Heart disease: Mother. Hypertension: Mother. Kidney stone: Mother. Renal cancer: Negative: Mother, Father, Sister, Brother, Daughter, Son and Grandparent. Stroke: Father and Grandparent. Substance abuse: Father. Immunizations hepatitis B pediatric vaccine: 0 unknown unit (06/16/01) hepatitis B pediatric vaccine: 0 unknown unit (06/21/98) measles/mumps/rubella virus vaccine: 0 unknown unit (06/16/01) Code Status Code Status - Ordered -- 02/23/23 16:01:00 EDT, Full Code, Constant Order Digitally Signed by ENZO JONES DO on 02/23/2023 07:29 PM Digitally Signed by JODI HILLIARD MD on 02/24/2023 07:51 AM [id number] Evaluation + Plan noteExtracted from: Title:[facility] History and Physical Author:ENZO JONES DO Date:02/23/23 Patient is a 32 yo woman with a history of stage IIIB cervical cancer s/p chemoradiationi in remission, has a history obstructive uropathy with left nephrostomy tube in place; admitted for pelvic pain and complicated urinary tract infection. Admit to regular floor Condition: Stable Vitals: q4hr Activity: Ambulate, up to chair Diet: Regular IVF: NS 75 cc/hr DVT Prophylaxis: SCDs , Heparin 5000 U TID 1. Complicated UTI (urinary tract infection) - Recent UTI symptoms, patient called in to office. Was not able to make appointment but took Bactrim x 5 days which she finished few days ago. Symptoms improved - 02/23 UA Large blood, 100 protein, small leuks, 10-20 RBC, 5-10 WBC, squams 3-5 - Urine culture pending - Recurrent history of complicated urinary tract infection with ESBL / E. coli / Enterococcus / Klebsiella pneumonia - 01/01 Urogram: No evidence of right urinary tract obstruction - Cr 0.6, wnl - WBC 10.5 wnl - Denies fevers, chills. VS wnl 2. Bilateral flank pain -Patient reports has had for some time -Reports has not made urine in > 1 month. Has left nephrostomy tube only. Just had exchanged 02/17/2023 -01/01 Urogram showed no evidence of right urinary tract obstruction -Pain control with home pain meds and dlaudid for breakthrough 3. Cervical cancer - Stage IIIB SCC of cervix - S/p Chemoradiation, currently in remission -Recent CT 08/02/22 unremarkable for signs of cancer recurrence -Recent Pap smear (07/15) negative for cervical dysplasia, however positive for HPV. For 6 months follow up per Dr. Martin's last note - Port-A-Cath in place 4. Tobacco use - For Nicotine patch if patient desires - Smokes 1/2 PPD 5. Anxiety - Declined counseling - Continue Ativan home dose TID PRN 6. Asthma - asymptomatic 7. Nephrostomy status - Initially placed in 2019. - Last exchanged 02/17/2023 8. Cancer related pain -on oxycodone 10mg q6h and gabapetin at home -IV dilaudid added prn for breakthrough 9. Decreased appetite - On mirtazapine for appetite stimulant, continue Dispo: Meropenem. Urine culture pending. Pain control. Discussed with Dr. Hilliard who agrees with plan. Future Appointments Appointment Date:03/19/2023 03:10:00 PM Scheduled Provider:FLIP MARTIN MD Location:[facility] Appointment Type:SO OV Follow Up Appointment Date:05/12/2023 11:00:00 AM Scheduled Provider: Location:IR Appointment Type:IR Neph Cath-Neph Ureter W/Guide Left Future Scheduled Tests Laboratory* Urinalysis 02/14/23 Radiology* IR Neph Cath-Neph Ureter W/Guide Left 07/03/22 * IR Neph Cath-Neph Ureter W/Guide Left 08/02/22 * IR Neph Cath-Neph Ureter W/Guide Left 09/02/22 * IR Neph Cath-Neph Ureter W/Guide Left 10/02/22 * IR Neph Cath-Neph Ureter W/Guide Left 11/02/22 * IR Neph Cath-Neph Ureter W/Guide Left 12/03/22 * IR Neph Cath-Neph Ureter W/Guide Left 12/31/22 * IR Neph Cath-Neph Ureter W/Guide Left 01/31/23 * IR Neph Cath-Neph Ureter W/Guide Left 03/02/23 * IR Neph Cath-Neph Ureter W/Guide Left 04/02/23 * IR Neph Cath-Neph Ureter W/Guide Left 05/02/23 * IR Neph Cath-Neph Ureter W/Guide Left 06/02/23 [facility] 04-17-2023 Hospital Discharge instructions Patient Education 02/17/2023 10:41:47 Radiology- Nephrostomy/Nephroureteral Tube Exchange 12/26/2022(CUSTOM) SAVANNAH Nephrostomy/Nephroureteral Tube Exchange Discharge Instructions Interventional Radiology [facility] [address] [place] [address] The procedure that you had done today is called a nephrostomy tube exchange. This is a procedure toreplace a pre-existing tube that drains the urine from the kidney in order to prevent pain, infection and kidney damage. This should occur every 6-12 weeks, depending on your physician's orders and personal condition. Your urine may be blood tinged, in the bag and from regular urination, for up to 48 hours. If you had a nephroureteral tube exchange today, then this procedure is to replace a pre-existing tube that goes from your back into the kidney and down the ureter to the bladder. This tube may be either capped or have a dependent bag attached like a nephrostomy tube. Please follow these instructions: DIET: Resume previous diet as tolerated ACTIVITY: Wear loose, comfortable clothing. Make sure your tube is secure at all times. Avoid tugging at the tube. PAIN CONTROL: Mild back discomfort on the side of the tube placement may occur for the first 24 hours. You may experience the feeling of the need to urinate. Rbed-xbl-wystfsa pain medication should be used for pain or discomfort. Please check with the physician who sent you for this procedure for their specific recommendations. If your pain is not relieved or becomes more severe, notify the physician who sent you for this procedure. IF YOU RECEIVED CONSCIOUS SEDATION (IV SEDATION) & YOU ARE DISCHARGED THE SAME DAY You must have someone drive you home when you leave the hospital. For 24 hours after your procedure, do not do anything where you need to make important decisions. This includes operating machinery, signing important documents, etc. MEDICATION: Please resume home medications today as scheduled. NEPHROSTOMY CARE: Wash your hands well with soap and water before and after caring for your nephrostomy tube. Keep the skin around the nephrostomy tube dry. If the area does get wet, dry the skin completely. Change the dressing every week, or as needed if it is leaking or the dressing becomes saturated. Keep all the ports of the tube and drainage bag as clean as possible to prevent infection. Empty the drainage bags often via the spout at the bottom of the bag. Turn clockwise. Avoid overfilling. Always empty the bag before bed. Some patients will be required to flush their tubes, please check with ordering physician for instructions and supplies. (You do not need to do this unless specifically instructed by your healthcare provider). TUBE PROBLEMS Call Interventional Radiology IMMEDIATELY if the tube falls out. Call Interventional Radiology if you notice decreased or no urine output or if urine leaks from thedressing site from tube. Call your Urologist if any abnormal bleeding, foul odor or drainage, redness, swelling, worsening pain, or fever above 102F. If the catheter falls out, it can be replaced by the doctor ideally within 24 hours. Do not attemptto put the tube back in yourself. BATHING Avoid swimming. You may shower with the nephrostomy bag attached to the skin, sit in a shallow bath, or sponge bathe while the catheter is in place. Be sure to keep the water level below the dressingwhen tub bathing. Please change your dressing if it gets wet. SPECIFIC INSTRUCTIONS TO CHANGE NEPHROSTOMY TUBE DRESSING Supplies needed: Soap and water Clean, dry towel Nephrostomy bag Clean adhesive dressing Gauze Because the nephrostomy tube is located on your back, you will need someone to assist you in changing the dressing. Wash hands well Remove the old dressing, peeling the edges slowly from skin. As the dressing is pulled away from the skin, support the nephrostomy tube with your free hand to prevent placing tension on the tube and accidentally pulling it out. Wash the area around the nephrostomy tube with soap and water. Gently pat the area dry. Need 2 layers of gauze. One layer in between the skin and the tube. Second layer of gauze goes overthe tube. Then place the clean adhesive dressing over the gauze. Supplies may be obtained at: [facility] [address] [facility] [address] [facility] Any questions or concerns, please contact your physician or Interventional Radiology at [phone] from 8-4:30pm Friday-Friday. If you do not have a follow up appointment scheduled at the time of discharge, please call Interventional Radiology at the number listed above. 02/17/2023 10:40:47 Moderate Conscious Sedation, Adult, Care After Moderate Conscious Sedation, Adult, Care After These instructions provide you with information about caring for yourself after your procedure. Your health care provider may also give you more specific instructions. Your treatment has been plannedaccording to current medical practices, but problems sometimes occur. Call your health care provider if you have any problems or questions after your procedure. What can I expect after the procedure? After your procedure, it is common: To feel sleepy for several hours. To feel clumsy and have poor balance for several hours. To have poor judgment for several hours. To vomit if you eat too soon. Follow these instructions at home: For at least 24 hours after the procedure: Do not: ?Participate in activities where you could fall or become injured. ?Drive. ?Use heavy machinery. ?Drink alcohol. ?Take sleeping pills or medicines that cause drowsiness. ?Make important decisions or sign legal documents. ?Take care of children on your own. Rest. Eating and drinking Follow the diet recommended by your health care provider. If you vomit: ?Drink water, juice, or soup when you can drink without vomiting. ?Make sure you have little or no nausea before eating solid foods. General instructions Have a responsible adult stay with you until you are awake and alert. Take jzhh-ger-xlpinvt and prescription medicines only as told by your health care provider. If you smoke, do not smoke without supervision. Keep all follow-up visits as told by your health care provider. This is important. Contact a health care provider if: You keep feeling nauseous or you keep vomiting. You feel light-headed. You develop a rash. You have a fever. Get help right away if: You have trouble breathing. This information is not intended to replace advice given to you by your health care provider. Make sure you discuss any questions you have with your health care provider. Document Released: 08/10/2014 Document Revised: 10/02/2018 Document Reviewed: 02/08/2017 [employer] Patient Education 2020 [employer]. Follow Up Care 12/16/2022 14:31:35 With: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 Address: [address] [place] [address] [place] [address]- [phone] When: Unknown With:Go to emergency room if symptoms worsen Address:Unknown When: Unknown [facility] 04-17-2023 Note* JAMAL Feliciano Ventura: SIGN, AUTHOR, PERFORM Event Display: IR Procedure Record Authored Date: IR Procedure Record Summary Primary Physician: VIRAL MANUEL MD Finalized Date/Time: 02/17/23 10:12:03 Pt. Name: ANTONELLALALYO.B./Sex: 1990 Female Med Rec #: [id number] Physician: Financial #: [id number] Pt. Type: O Room/Bed: / Admit/Disch: 02/17/23 08:45:00 - Institution: Allergies identified in patient's electronic medical record at time of printing on 02/17/23 Entry 1 Entry 2 Substance Oranges penicillin Reaction Type Allergy Allergy Last Modified By: JAMAL Scott RN Evan 02/03/21 10/04/22 08:25:47 17:13:24 Case Attendance- IR Entry 1 Entry 2 Entry 3 Case Attendee VIRAL MANUEL MD, Jacque M. Hershberger, Terra L Rad Tech Role Performed Primary Surgeon Scrub Technologist Circulating Technologist Details Time In 02/17/23 09:49:00 02/17/23 09:31:00 02/17/23 09:31:00 Time Out 02/17/23 10:20:00 02/17/23 10:20:00 02/17/23 10:20:00 Procedure/Preference IR Neph Cath-Neph IR Neph Cath-Neph IR Neph Cath-Neph Card Ureter W/Guide Left SN Ureter W/Guide Left SN Ureter W/Guide Left SN Last Modified By: JAMAL Feliciano RN Corey Snider, RN Corey 02/17/23 10:09:24 02/17/23 10:09:24 02/17/23 10:09:24 Entry 4 Case Attendee JAMAL Feliciano Role Performed Procedure Nurse Details Time In 02/17/23 09:31:00 Time Out 02/17/23 10:20:00 Procedure/Preference IR Neph Cath-Neph Card Ureter W/Guide Left SN Last Modified By: JAMAL Feliciano 02/17/23 10:09:24 Radiology Procedures- IR Entry 1 Procedure/Preference IR Neph Cath-Neph Actual Procedure IR NEPH CATH - NEPH Card Ureter W/Guide Left SN URETERAL W/ GUIDE LEFT SN Primary Procedure Yes Primary Surgeon VIRAL MANUEL MD Anesthesia/Sedation Local, IV Sedation Type Additional Procedure Times Start 02/17/23 09:49:00 Stop 02/17/23 10:09:00 Specialty Service SN Radiology Procedure EBL 1 mL Last Modified By: JAMAL Feliciano 02/17/23 10:09:35 Radiology Procedure Details - IR Entry 1 Radiology Sedation Case Times Sedation Start Time 02/17/23 09:51:00 Sedation Stop Time 02/17/23 10:09:00 Sedation Total Time 18min Radiology - Fluid/Drainage Radiology Contrast Contrast Used? Yes Dose 6 mL/beat Medication OMNIPAQUE 300 50ML 10/PK Y-530 [facility] [id number] Radiology Flouroscopy Fluoroscopy Used? Yes Fluoro Dose (mGy) 14.49 Fluoro Time 1.1min Radiology Local Local Used? No Radiology Procedure Site Site/Location left flank Site Condition No complications Dressing Type Bioclusive 4 X 5, Gauze Technologist Notes 8.5 fr x 24 cm sponge 4 X 4 neph-ureteral tube change left Last Modified By: JAMAL Feliciano 02/17/23 10:11:48 General Case Data - IR Entry 1 Case Information Room IR 18 Case Level IR Level 2 Wound Class None Specialty SN Radiology Procedure ASA Class None Diagnosis Preop Diagnosis cervical ca Postop Same As Preop Yes Postop Diagnosis cervical ca Last Modified By: JAMAL Feliciano 02/17/23 09:47:06 Medication Administration- IR Entry 1 Entry 2 Entry 3 Medication benadryl versed hydromorphone Time Administered 02/17/23 09:51:00 02/17/23 09:51:00 02/17/23 09:51:00 Route of Admin IV Push IV Push IV Push Dose 50mg 1mg 1mg Volume VORB * *Verbal Order Read Back (VORB) is required for NON- PHYSICIAN administration of medications. Administered by No No No Physician? Administered by: JAMAL Feliciano RN Corey Snider, RN Corey Verbal Order Read VIRAL MANUEL MD, JAMES MD BUCHINO, JAMES MD Back from: Last Modified By: JAMAL Feliciano RN Corey Snider, RN Corey 02/17/23 09:53:47 02/17/23 09:53:47 02/17/23 09:53:47 Entry 4 Entry 5 Entry 6 Medication versed hydromorphone versed Time Administered 02/17/23 09:56:00 02/17/23 09:56:00 02/17/23 10:07:00 Route of Admin IV Push IV Push IV Push Dose 1mg 1mg 1mg Volume VORB * *Verbal Order Read Back (VORB) is required for NON- PHYSICIAN administration of medications. Administered by No No No Physician? Administered by: JAMAL Feliciano RN Corey Snider, RN Corey Verbal Order Read VIRAL MANUEL MD, JAMES MD BUCHINO, JAMES MD Back from: Last Modified By: JAMAL Feliciano RN Corey Snider, RN Corey 02/17/23 10:00:12 02/17/23 10:00:12 02/17/23 10:09:15 Entry 7 Medication hydromorphone Time Administered 02/17/23 10:07:00 Route of Admin IV Push Dose 1mg Volume VORB * *Verbal Order Read Back (VORB) is required for NON- PHYSICIAN administration of medications. Administered by No Physician? Administered by: JAMAL Feliciano Verbal Order Read VIRAL MANUEL MD Back from: Last Modified By: JAMAL Feliciano 02/17/23 10:09:15 Procedure Case Times- IR Entry 1 Patient In Procedure Patient In OR 02/17/23 09:31:00 Patient Out of OR 02/17/23 10:20:00 Procedure Start/Stop Procedure Start Time 02/17/23 09:49:00 Procedure Stop Time 02/17/23 10:09:00 Last Modified By: JAMAL Feliciano 02/17/23 10:09:23 Immediate Post Procedure Note - IR Entry 1 Immediate Post Yes Findings neph-ureteral change Procedure Note left displayed for Physician to review Closure Technique Closure Technique Other than Primary Last Modified By: Patti Ching Systems Integrator 02/17/23 09:58:41 Immediate Post Procedure Note - IR Signed By: VIRAL MANUEL MD 02/17/23 10:10 Allergy Information- IR Entry 1 Allergies Reviewed? Yes Allergies Reviewed Medical Record With Last Modified By: JAMAL Feliciano 02/17/23 09:43:26 Radiology Protocols/Time Out- IR Entry 1 Preprocedure Clinician Verifies Correct patient ID When Clinically Confirmation of correct using name & date Indicated side(s) and site(s), or MRN, Accurate Correct diagnostic and procedure, complete radiology tests Informed Consent, H & P available, Required update immediately blood products, prior to procedure, if implants, devices applicable and/or special equipment available OR/Procedure Room/Bedside Time 02/17/23 09:49:00 Clinician Verifies Correct patient identity including EMR & records using name and date or medical record number, Accurate procedure consent form, Correct patient position, Necessary equipment is available, Anticipated non-routine events with surgical team (case duration, estimated blood loss, patient specific concerns)., Parada patient factors for recovery and management identified with surgical team. When Applicable Confirmation correct Team Members VIRLA MANUEL MD, side and site marked, Present for Time Out Karolina Prater, Relevant images and Patti Ching results are properly Systems IntegratorBraden RN labeled and Ventura appropriately displayed, Alcohol based prep dry, Double verification of sterility indicators complete Instrument Sterility Team Members VIRAL MANUEL MD, Verifying Sterility Karolina Prater Procedure IR Neph Cath-Neph Ureter W/Guide Left SN Last Modified By: JAMAL Feliciano 02/17/23 09:53:58 Skin Prep- IR Entry 1 Procedure IR Neph Cath-Neph Ureter W/Guide Left SN Skin Prep Prep Area Back Side Lower, Left By Karolina Prater Prep Agents Chloraprep Hair Removal Method N/A Last Modified By: JAMAL Feliciano 02/17/23 09:46:16 Patient Positioning- IR Entry 1 Procedure IR Neph Cath-Neph Body Position OP Prone Ureter W/Guide Left SN Feet Uncrossed? Yes Pressure Points Yes Checked Last Modified By: JAMAL Feliciano 02/17/23 09:46:27 Radiology Procedure Plan - IR Entry 1 Radiology - Nursing Care Plan Outcome Statement The patient Outcome Statement The patient receives demonstrates knowledge Cont. appropriate of the expected medication(s), safely responses to the administered during the operative/invasive perioperative/invasive procedure., The period., The patient is patient's value system, free from signs and lifestyle, ethnicity, symptoms of injury and culture are caused by extraneous considered, respected, objects (equipment, and incorporated in the instrumentation, perioperative plan of sponges, or sharps). care., The patient is free from signs and symptoms of infection., The patient is free from signs and symptoms of injury related to positioning. Radiology - Action Plan Outcomes Met? Yes Mottler Operator JAMAL Feliciano Completing Procedure Plan Last Modified By: JAMAL Feliciano 02/17/23 09:46:55 Case Comments <None> Finalized By: JAMAL Feliciano Document Signatures Signed By: JAMAL Feliciano 02/17/23 10:12 [facility] 04-17-2023 Summary of episode note Discharge Instructions Thank you for allowing [facility] to assist you with your healthcare needs. The following is importantdischarge information regarding your hospital visit. Your Care Team FLIP MARTIN MD What to do next Scheduled Follow-Up Appointments Appointment Type When With Where Contact InformationSO OV 02/20/2023 02:50 PM EDT FLIP MARTIN MD [facility] [address] [place] [phone] Follow Up Appointments Follow Up with BRITTNI LU When Where: [address] [place] [address] [place] [address] [phone] Follow Up with Go to emergency room if symptoms worsen When Allergies Oranges penicillin Medications Please ask your primary doctor or pharmacist before taking any other medication not listed, including over the counter drugs, herbal medications, vitamins and or supplements as they may interact withyour home medications. What How Much When Why Instructions Last Dose Unchanged acetaminophen-oxyCODONE (acetaminophen-oxyCODONE 325 mg-5 mg oral tablet) 1 tab(s) by mouth Every 6 hours Cervical cancer Duration: 30 Days Unchanged gabapentin (gabapentin 300 mg oral capsule) 1 cap by mouth Daily at bedtime Unchanged LORazepam (Ativan 1 mg oral tablet) 1 tab(s) by mouth Three (3) times a day as needed for as needed for anxiety Cervical cancer Anxiety Duration: 30 Days Unchanged LORazepam (LORazepam 1 mg oral tablet) 1 tab(s) by mouth Three (3) times a day as needed for as needed for anxiety Unchanged mirtazapine (mirtazapine 15 mg oral tablet) 1 tab(s) by mouth Once a day Unchanged ondansetron (ondansetron 4 mg oral tablet) 1 tab(s) by mouth Every 6 hours as needed for Nausea/Vomiting Duration: 30 Days Unchanged ondansetron (ondansetron 4 mg oral tablet) TAKE 1 TABLET BY MOUTH EVERY 6 HOURS NEEDED FOR NAUSEA AND VOMITING. TAKE 20 TO 30 MINUTES PRIORTO TAKING PAIN MEDICATION FOR 30 DAYS Unchanged oxyCODONE (oxyCODONE 10 mg oral tablet ( IMMEDIATE release )) 1 tab(s) by mouth Every 6 hours as needed for for pain Cervical cancer Cancer related pain Duration: 30 Days Unchanged sulfamethoxazole-trimethoprim (Bactrim DS 800 mg-160 mg oral tablet) 190.8 Milligram by mouth Every 12 hours Duration: 5 Days Dosage expressed as trimethoprim Please take this list to your next doctor s visit. Bring all medications you take, including over the counter medications, herbals and other supplements with you to your doctor s visit. Patients and families are reminded to discard old lists and to update any records with all medication providers or retail pharmacies. Education Materials SAVANNAH Nephrostomy/Nephroureteral Tube Exchange Discharge Instructions Interventional Radiology [facility] Imaging Services [facility] [address] The procedure that you had done today is called a nephrostomy tube exchange. This is a procedure toreplace a pre-existing tube that drains the urine from the kidney in order to prevent pain, infection and kidney damage. This should occur every 6-12 weeks, depending on your physician's orders and personal condition. Your urine may be blood tinged, in the bag and from regular urination, for up to 48 hours. If you had a nephroureteral tube exchange today, then this procedure is to replace a pre-existing tube that goes from your back into the kidney and down the ureter to the bladder. This tube may be either capped or have a dependent bag attached like a nephrostomy tube. Please follow these instructions: DIET: Resume previous diet as tolerated ACTIVITY: Wear loose, comfortable clothing. Make sure your tube is secure at all times. Avoid tugging at the tube. PAIN CONTROL: Mild back discomfort on the side of the tube placement may occur for the first 24 hours. You may experience the feeling of the need to urinate. Euvz-kpa-pygxvcg pain medication should be used for pain or discomfort. Please check with the physician who sent you for this procedure for their specific recommendations. If your pain is not relieved or becomes more severe, notify the physician who sent you for this procedure. IF YOU RECEIVED CONSCIOUS SEDATION (IV SEDATION) & YOU ARE DISCHARGED THE SAME DAY You must have someone drive you home when you leave the hospital. For 24 hours after your procedure, do not do anything where you need to make important decisions. This includes operating machinery, signing important documents, etc. MEDICATION: Please resume home medications today as scheduled. NEPHROSTOMY CARE: Wash your hands well with soap and water before and after caring for your nephrostomy tube. Keep the skin around the nephrostomy tube dry. If the area does get wet, dry the skin completely. Change the dressing every week, or as needed if it is leaking or the dressing becomes saturated. Keep all the ports of the tube and drainage bag as clean as possible to prevent infection. Empty the drainage bags often via the spout at the bottom of the bag. Turn clockwise. Avoid overfilling. Always empty the bag before bed. Some patients will be required to flush their tubes, please check with ordering physician for instructions and supplies. (You do not need to do this unless specifically instructed by your healthcare provider). TUBE PROBLEMS Call Interventional Radiology IMMEDIATELY if the tube falls out. Call Interventional Radiology if you notice decreased or no urine output or if urine leaks from thedressing site from tube. Call your Urologist if any abnormal bleeding, foul odor or drainage, redness, swelling, worsening pain, or fever above 102F. If the catheter falls out, it can be replaced by the doctor ideally within 24 hours. Do not attemptto put the tube back in yourself. BATHING Avoid swimming. You may shower with the nephrostomy bag attached to the skin, sit in a shallow bath, or sponge bathe while the catheter is in place. Be sure to keep the water level below the dressingwhen tub bathing. Please change your dressing if it gets wet. SPECIFIC INSTRUCTIONS TO CHANGE NEPHROSTOMY TUBE DRESSING Supplies needed: Soap and water Clean, dry towel Nephrostomy bag Clean adhesive dressing Gauze Because the nephrostomy tube is located on your back, you will need someone to assist you in changing the dressing. Wash hands well Remove the old dressing, peeling the edges slowly from skin. As the dressing is pulled away from the skin, support the nephrostomy tube with your free hand to prevent placing tension on the tube and accidentally pulling it out. Wash the area around the nephrostomy tube with soap and water. Gently pat the area dry. Need 2 layers of gauze. One layer in between the skin and the tube. Second layer of gauze goes overthe tube. Then place the clean adhesive dressing over the gauze. Supplies may be obtained at: [facility] [address] [facility] [address] [facility] Any questions or concerns, please contact your physician or Interventional Radiology at [phone] from 8-4:30pm Friday-Friday. If you do not have a follow up appointment scheduled at the time of discharge, please call Interventional Radiology at the number listed above. Moderate Conscious Sedation, Adult, Care After These instructions provide you with information about caring for yourself after your procedure. Your health care provider may also give you more specific instructions. Your treatment has been plannedaccording to current medical practices, but problems sometimes occur. Call your health care provider if you have any problems or questions after your procedure. What can I expect after the procedure? After your procedure, it is common: To feel sleepy for several hours. To feel clumsy and have poor balance for several hours. To have poor judgment for several hours. To vomit if you eat too soon. Follow these instructions at home: For at least 24 hours after the procedure: Do not: ? Participate in activities where you could fall or become injured. ? Drive. ? Use heavy machinery. ? Drink alcohol. ? Take sleeping pills or medicines that cause drowsiness. ? Make important decisions or sign legal documents. ? Take care of children on your own. Rest. Eating and drinking Follow the diet recommended by your health care provider. If you vomit: ? Drink water, juice, or soup when you can drink without vomiting. ? Make sure you have little or no nausea before eating solid foods. General instructions Have a responsible adult stay with you until you are awake and alert. Take fnby-tlq-jizzonm and prescription medicines only as told by your health care provider. If you smoke, do not smoke without supervision. Keep all follow-up visits as told by your health care provider. This is important. Contact a health care provider if: You keep feeling nauseous or you keep vomiting. You feel light-headed. You develop a rash. You have a fever. Get help right away if: You have trouble breathing. This information is not intended to replace advice given to you by your health care provider. Make sure you discuss any questions you have with your health care provider. Document Released: 08/10/2014 Document Revised: 10/02/2018 Document Reviewed: 02/08/2017 [employer] Patient Education 2020 [employer] Additional Information VACCINATE! IT SAVES LIVES! Members of the community who have not yet received the COVID-19 vaccine and would like to receive it can visit one of [facility] vaccine clinics. There are many vaccine clinic locations within the [facility]. For locations and available times, please visit [email or web address] It is important to note that some COVID mobile vaccine clinics are held outdoors and may be canceled in rainy or stormy conditions. To learn more about pediatric vaccinations (ages 5-11), we invite you to visit the [facility] webpage. [email or web address]/[email or web address] learn more about the COVID-19 vaccine, we invite you to visit the CDC website for a list of frequently asked questions. https://www.cdc.gov/coronavirus/2019-ncov/vaccines/faq.html [facility] Patient Portal Access Instructions: Stay connected with your healthcare team and access your personal medical information anytime with the [facility] Patient Portal.If you would like a full copy of your medical records, please contact the [facility] Medical Records Department, Friday through Friday between 8a.m. and 4:30p.m. Please follow the directions below to access the portal: 1.Access the email account you provided upon registration to the [facility].2.Look for an invitation email from [facility].3.Open the email and access the invitation link: Accept Invitation to [facility]4.Fill in the required quintero to create your account. Sign into [email or web address] with your username and password that you created in the above steps to stay up to date. You can then view a summary of results, a summary of your visits, and the ability to download your summaries to your computer or send the information securely to a physician. Remember that your healthcare information is confidential, so carefully consider who you will allow to register on the [facility] Patient Portal for access to your information. You can also access the [facility] Patient Portal on the Laguo joya. Simply click on Health Records under [employer] and then click on the [facility] logo. HOW TO SAFELY DISPOSE OF PRESCRIPTION MEDICATIONS Please use one of the following methods to safely dispose of your unused medications. 1.Use a drug disposal kit: the drug disposal pouch allows you to safely discard your old and unuseddrugs. Ask your nurse to give you one when you are discharged.2.Visit a local take-back location: Many local pharmacies and police departments have programs that collect old and unwanted prescriptiondrugs. Call your local pharmacy or go to http://bit.ConsumerBell/0B3Gq8v to find one close to you.3.Make use of household items: Use cat litter or old coffee grounds to dispose medications if other options arenot available. Mix your drugs with these household products, seal them in an airtight container andthrow it into the garbage. Call [facility]: [phone] to be sure your drugs can be disposed of in this way. Some medicines may require a different approach.4.Never flush your medications down the toilet. IF YOU HAVE BEEN PRESCRIBED AN OPIOID FOR PAIN If you have been prescribed an opioid (such as hydrocodone, oxycodone or morphine), it is critical to understand the possible side effects and risks of opioid pain medications. Even when taken as directed, opioids can have several side effects including: Tolerance, meaning you might need to take more of a medication for the same pain relief. Nausea, vomiting and/or constipation. Sleepiness, dizziness, dry mouth, confusion, depression or itching. Physical dependence, meaning you have withdrawal symptoms when a medication is stopped, can develop within a few days. KNOW YOUR RESPONSIBILITIES It is important to know exactly how much and how often to take the opioid pain medications you are prescribed. Never take opioids in higher amounts or more often than prescribed. Do not combine opioids with alcohol or other drugs that cause drowsiness, such as benzodiazepines, also known as benzos, including diazepam and alprazolam, muscle relaxants or sleep aids. Never sell or share prescription opioids. This is illegal. Store opioids in a secure place and out of reach of others (including children, family, friends and visitors). The last page of this document has been signed and retained as a CHART COPY. Signatures Patient Education Materials Radiology- Nephrostomy/Nephroureteral Tube Exchange 12/26/2022(CUSTOM) Moderate Conscious Sedation, Adult, Care After Medication Leaflets My discharge plan and instructions have been reviewed and explained to me and I,LALY NAVAS understand my current condition and have read and understand these discharge instructions. I have received a written copy of the plan/instructions. If I have questions, I am aware that I should contact my doctor. 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 Post Procedure Diagnosis: Same. Pathology Supervisor: Dr. Viral Manuel Procedure: Left nephroureteral catheter exchange. Anesthesia: Procedural sedation. Findings: Success. Estimated Blood Loss: Minimal (Less Than 10 mL). Specimen: None. Complications: None. Full report with procedural details to follow and will become available under the Radiology tab of Results Review. Please contact for any questions or concerns. Viral Manuel MD Interventional Radiology Pager: [phone] Digitally Signed by VIRAL MANUEL MD on 02/17/2023 10:22 AM [id number] Note IR Procedure Record Summary Primary Physician: VIRAL MANUEL MD Finalized Date/Time: 02/17/23 10:12:03 Pt. Name: LALY NAVAS [place] /Sex: 1990 Female Med Rec #: [id number] Physician: Financial #: [id number] Pt. Type: O Room/Bed: / Admit/Disch: 02/17/23 08:45:00 - Institution: Allergies identified in patient's electronic medical record at time of printing on 02/17/23 Entry 1 Entry 2 Substance Oranges penicillin Reaction Type Allergy Allergy Last Modified By: JAMAL Scott RN Evan 02/03/21 10/04/22 08:25:47 17:13:24 Case Attendance- IR Entry 1 Entry 2 Entry 3 Case Attendee VIRAL MANUEL MD, Jacque M. Hershberger, Terra L Rad Tech Role Performed Primary Surgeon Scrub Technologist Circulating Technologist Details Time In 02/17/23 09:49:00 02/17/23 09:31:00 02/17/23 09:31:00 Time Out 02/17/23 10:20:00 02/17/23 10:20:00 02/17/23 10:20:00 Procedure/Preference IR Neph Cath-Neph IR Neph Cath-Neph IR Neph Cath-Neph Card Ureter W/Guide Left SN Ureter W/Guide Left SN Ureter W/Guide Left SN Last Modified By: JAMAL Feliciano RN Corey Snider, RN Corey 02/17/23 10:09:24 02/17/23 10:09:24 02/17/23 10:09:24 Entry 4 Case Attendee JAMAL Feliciano Role Performed Procedure Nurse Details Time In 02/17/23 09:31:00 Time Out 02/17/23 10:20:00 Procedure/Preference IR Neph Cath-Neph Card Ureter W/Guide Left SN Last Modified By: JAMAL Feliciano 02/17/23 10:09:24 Radiology Procedures- IR Entry 1 Procedure/Preference IR Neph Cath-Neph Actual Procedure IR NEPH CATH - NEPH Card Ureter W/Guide Left SN URETERAL W/ GUIDE LEFT SN Primary Procedure Yes Primary Surgeon VIRAL MANUEL MD Anesthesia/Sedation Local, IV Sedation Type Additional Procedure Times Start 02/17/23 09:49:00 Stop 02/17/23 10:09:00 Specialty Service SN Radiology Procedure EBL 1 mL Last Modified By: JAMAL Feliciano 02/17/23 10:09:35 Radiology Procedure Details - IR Entry 1 Radiology Sedation Case Times Sedation Start Time 02/17/23 09:51:00 Sedation Stop Time 02/17/23 10:09:00 Sedation Total Time 18min Radiology - Fluid/Drainage Radiology Contrast Contrast Used? Yes Dose 6 mL/beat Medication OMNIPAQUE 300 50ML 10/PK Y-530 [facility] [id number] Radiology Flouroscopy Fluoroscopy Used? Yes Fluoro Dose (mGy) 14.49 Fluoro Time 1.1min Radiology Local Local Used? No Radiology Procedure Site Site/Location left flank Site Condition No complications Dressing Type Bioclusive 4 X 5, Gauze Technologist Notes 8.5 fr x 24 cm sponge 4 X 4 neph-ureteral tube change left Last Modified By: JAMAL Feliciano 02/17/23 10:11:48 General Case Data - IR Entry 1 Case Information Room AH IR 18 Case Level IR Level 2 Wound Class None Specialty SN Radiology Procedure ASA Class None Diagnosis Preop Diagnosis cervical ca Postop Same As Preop Yes Postop Diagnosis cervical ca Last Modified By: JAMAL Feliciano 02/17/23 09:47:06 Medication Administration- IR Entry 1 Entry 2 Entry 3 Medication benadryl versed hydromorphone Time Administered 02/17/23 09:51:00 02/17/23 09:51:00 02/17/23 09:51:00 Route of Admin IV Push IV Push IV Push Dose 50mg 1mg 1mg Volume VORB * *Verbal Order Read Back (VORB) is required for NON- PHYSICIAN administration of medications. Administered by No No No Physician? Administered by: JAMAL Feliciano RN Corey Snider, RN Corey Verbal Order Read VIRAL MANUEL MD, JAMES MD BUCHINO, JAMES MD Back from: Last Modified By: JAMAL Feliciano RN Corey Snider, RN Corey 02/17/23 09:53:47 02/17/23 09:53:47 02/17/23 09:53:47 Entry 4 Entry 5 Entry 6 Medication versed hydromorphone versed Time Administered 02/17/23 09:56:00 02/17/23 09:56:00 02/17/23 10:07:00 Route of Admin IV Push IV Push IV Push Dose 1mg 1mg 1mg Volume VORB * *Verbal Order Read Back (VORB) is required for NON- PHYSICIAN administration of medications. Administered by No No No Physician? Administered by: JAMAL Feliciano RN Corey Snider, RN Corey Verbal Order Read VIRAL MANUEL MD, JAMES MD BUCHINO, JAMES MD Back from: Last Modified By: JAMAL Feliciano RN Corey Snider, RN Corey 02/17/23 10:00:12 02/17/23 10:00:12 02/17/23 10:09:15 Entry 7 Medication hydromorphone Time Administered 02/17/23 10:07:00 Route of Admin IV Push Dose 1mg Volume VORB * *Verbal Order Read Back (VORB) is required for NON- PHYSICIAN administration of medications. Administered by No Physician? Administered by: JAMAL Feliciano Verbal Order Read VIRAL MANUEL MD Back from: Last Modified By: JAMAL Feliciano 02/17/23 10:09:15 Procedure Case Times- IR Entry 1 Patient In Procedure Patient In OR 02/17/23 09:31:00 Patient Out of OR 02/17/23 10:20:00 Procedure Start/Stop Procedure Start Time 02/17/23 09:49:00 Procedure Stop Time 02/17/23 10:09:00 Last Modified By: JAMAL Feliciano 02/17/23 10:09:23 Immediate Post Procedure Note - IR Entry 1 Immediate Post Yes Findings neph-ureteral change Procedure Note left displayed for Physician to review Closure Technique Closure Technique Other than Primary Last Modified By: Patti Ching Systems Integrator 02/17/23 09:58:41 Immediate Post Procedure Note - IR Signed By: VIRAL MANUEL MD 02/17/23 10:10 Allergy Information- IR Entry 1 Allergies Reviewed? Yes Allergies Reviewed Medical Record With Last Modified By: JAMAL Feliciano 02/17/23 09:43:26 Radiology Protocols/Time Out- IR Entry 1 Preprocedure Clinician Verifies Correct patient ID When Clinically Confirmation of correct using name & date Indicated side(s) and site(s), or MRN, Accurate Correct diagnostic and procedure, complete radiology tests Informed Consent, H & P available, Required update immediately blood products, prior to procedure, if implants, devices applicable and/or special equipment available OR/Procedure Room/Bedside Time 02/17/23 09:49:00 Clinician Verifies Correct patient identity including EMR & records using name and date or medical record number, Accurate procedure consent form, Correct patient position, Necessary equipment is available, Anticipated non-routine events with surgical team (case duration, estimated blood loss, patient specific concerns)., Parada patient factors for recovery and management identified with surgical team. When Applicable Confirmation correct Team Members VIRAL MANUEL MD, side and site marked, Present for Time Out Karolina Prater, Relevant images and Patti Ching results are properly Systems Integrator, JAMAL Feliciano labeled and [place] appropriately displayed, Alcohol based prep dry, Double verification of sterility indicators complete Instrument Sterility Team Members VIRAL MANUEL MD, Verifying Sterility Karolina Prater Procedure IR Neph Cath-Neph Ureter W/Guide Left SN Last Modified By: JAMAL Feliciano 02/17/23 09:53:58 Skin Prep- IR Entry 1 Procedure IR Neph Cath-Neph Ureter W/Guide Left SN Skin Prep Prep Area Back Side Lower, Left By Karolina Prater Prep Agents Chloraprep Hair Removal Method N/A Last Modified By: JAMAL Feliciano 02/17/23 09:46:16 Patient Positioning- IR Entry 1 Procedure IR Neph Cath-Neph Body Position OP Prone Ureter W/Guide Left SN Feet Uncrossed? Yes Pressure Points Yes Checked Last Modified By: JAMAL Feliciano 02/17/23 09:46:27 Radiology Procedure Plan - IR Entry 1 Radiology - Nursing Care Plan Outcome Statement The patient Outcome Statement The patient receives demonstrates knowledge Cont. appropriate of the expected medication(s), safely responses to the administered during the operative/invasive perioperative/invasive procedure., The period., The patient is patient's value system, free from signs and lifestyle, ethnicity, symptoms of injury and culture are caused by extraneous considered, respected, objects (equipment, and incorporated in the instrumentation, perioperative plan of sponges, or sharps). care., The patient is free from signs and symptoms of infection., The patient is free from signs and symptoms of injury related to positioning. Radiology - Action Plan Outcomes Met? Yes Mottler Operator JAMAL Feliciano Completing Procedure Plan Last Modified By: JAMAL Felciiano 02/17/23 09:46:55 Case Comments Finalized By: JAMAL Feliciano Document Signatures Signed By: JAMAL Feliciano 02/17/23 10:12 [id number] Discharge instructions Patient Education 01/06/2023 15:48:10 Urinary Tract Infection, Adult, Toes-rp-Ltjj Urinary Tract Infection, Adult A urinary tract infection (UTI) is an infection of any part of the urinary tract. The urinary tractincludes: The kidneys. The ureters. The bladder. The urethra. These organs make, store, and get rid of pee (urine) in the body. What are the causes? This is caused by germs (bacteria) in your genital area. These germs grow and cause swelling (inflammation) of your urinary tract. What increases the risk? You are more likely to develop this condition if: You have a small, thin tube (catheter) to drain pee. You cannot control when you pee or poop (incontinence). You are female, and: ?You use these methods to prevent : ?A medicine that kills sperm (spermicide). ?A device that blocks sperm (diaphragm). ?You have low levels of a female hormone (estrogen). ?You are . You have genes that add to your risk. You are sexually active. You take antibiotic medicines. You have trouble peeing because of: ?A prostate that is bigger than normal, if you are male. ?A blockage in the part of your body that drains pee from the bladder (urethra). ?A kidney stone. ?A nerve condition that affects your bladder (neurogenic bladder). ?Not getting enough to drink. ?Not peeing often enough. You have other conditions, such as: ?Diabetes. ?A weak disease-fighting system (immune system). ?Sickle cell disease. ?Gout. ?Injury of the spine. What are the signs or symptoms? Symptoms of this condition include: Needing to pee right away (urgently). Peeing often. Peeing small amounts often. Pain or burning when peeing. Blood in the pee. Pee that smells bad or not like normal. Trouble peeing. Pee that is cloudy. Fluid coming from the vagina, if you are female. Pain in the belly or lower back. Other symptoms include: Throwing up (vomiting). No urge to eat. Feeling mixed up (confused). Being tired and grouchy (irritable). A fever. Watery poop (diarrhea). How is this treated? This condition may be treated with: Antibiotic medicine. Other medicines. Drinking enough water. Follow these instructions at home: Medicines Take kynw-awj-jepkfnp and prescription medicines only as told by your doctor. If you were prescribed an antibiotic medicine, take it as told by your doctor. Do not stop taking it even if you start to feel better. General instructions Make sure you: ?Pee until your bladder is empty. ?Do not hold pee for a long time. ?Empty your bladder after sex. ?Wipe from front to back after pooping if you are a female. Use each tissue one time when you wipe. Drink enough fluid to keep your pee pale yellow. Keep all follow-up visits as told by your doctor. This is important. Contact a doctor if: You do not get better after 1 2 days. Your symptoms go away and then come back. Get help right away if: You have very bad back pain. You have very bad pain in your lower belly. You have a fever. You are sick to your stomach (nauseous). You are throwing up. Summary A urinary tract infection (UTI) is an infection of any part of the urinary tract. This condition is caused by germs in your genital area. There are many risk factors for a UTI. These include having a small, thin tube to drain pee and notbeing able to control when you pee or poop. Treatment includes antibiotic medicines for germs. Drink enough fluid to keep your pee pale yellow. This information is not intended to replace advice given to you by your health care provider. Make sure you discuss any questions you have with your health care provider. Document Released: 04/07/2009 Document Revised: 10/07/2019 Document Reviewed: 04/29/2019 [employer] Patient Education 2020 [employer]. Follow Up Care 01/01/2023 16:30:26 With:FLIP MARTIN MD Address: [address] [place] [address] [place] [address]- When:01/30/2023 14:10:00 [facility] 03-06-2023 Note Discharge Instructions Thank you for allowing [facility] to assist you with your healthcare needs. The following is importantdischarge information regarding your hospital visit. Your Care Team FLIP MARTIN MD Your Diagnosis Complicated UTI (urinary tract infection), Urinary tract infection Pelvic pain in female Nausea Anxiety Port-A-Cath in place History of chemotherapy Acute kidney injury Decreased appetite Nephrostomy status Tobacco use Left flank pain Cervical cancer What to do next Scheduled Follow-Up Appointments Appointment Type When Where Contact InformationIR Neph Cath-Neph Ureter W/Guide Left 02/17/2023 10:00 AM EDT IR Follow Up Appointments Follow Up with FLIP MARTIN MD When Within 1-2 days Why: Please call the office to schedule a follow up appointment Where: [address] [place] [address] [place] [address]- The Following Activity and Diet Have Been Ordered for You No qualifying data available. Discharge Diet - Ordered -- No changes were made to your diet during your hospital stay. Please resume your pre hospitalization diet on discharge., 01/06/23 14:41:00 EST The Following Equipment Has Been Ordered for You No qualifying data available. The Following Treatments Have Been Ordered for You Discharge Labs No qualifying data available. Discharge Radiology No qualifying data available. Other Therapies No qualifying data available. Post Acute Orders No qualifying data available. Someone Will Contact You Regarding These Home Health Referrals No home referrals have been ordered for you. No one will call you. Allergies Oranges penicillin Medications Please ask your primary doctor or pharmacist before taking any other medication not listed, including over the counter drugs, herbal medications, vitamins and or supplements as they may interact withyour home medications. What How Much When Instructions Last Dose New ciprofloxacin (ciprofloxacin 500 mg oral tablet) 1 tab(s) by mouth Every 12 hours Duration: 4 Days Pickup at [facility] New mirtazapine (mirtazapine 15 mg oral tablet) 1 tab(s) by mouth Once a day Refills: 3 Pickup at [facility] Pharmacy Information [facility]: [address] [place], [place] [phone] What How Much When Why Comments Stop Taking acetaminophen (Tylenol 325 mg oral capsule) 650 Milligram by mouth Every 4 hours as needed for Pain, scale 1-3 Stop Taking acetaminophen-oxyCODONE (acetaminophen-oxyCODONE 325 mg-5 mg oral tablet) 1 tab(s) by mouth Every 6 hours Cervical cancer Duration: 30 Days Stop Taking docusate (Colace 100 mg oral capsule) 1 cap by mouth Two (2) times a day as needed for as needed for constipation Stop Taking gabapentin (gabapentin 300 mg oral capsule) 1 cap by mouth Daily at bedtime Cervical cancer Duration: 30 Days Stop Taking LORazepam (Ativan 1 mg oral tablet) 1 tab(s) by mouth Three (3) times a day as needed for as needed for anxiety Cervical cancer Anxiety Duration: 30 Days Stop Taking ondansetron (Zofran 4 mg oral tablet) 1 tab(s) by mouth Every 6 hours as needed for Nausea/Vomiting Cervical cancer Stop Taking sodium chloride (Normal Saline Flush 0.9% injectable solution) 10 Milliliter IR Drain Every day Please take this list to your next doctor s visit. Bring all medications you take, including over the counter medications, herbals and other supplements with you to your doctor s visit. Patients and families are reminded to discard old lists and to update any records with all medication providers or retail pharmacies. Education Materials Urinary Tract Infection, Adult A urinary tract infection (UTI) is an infection of any part of the urinary tract. The urinary tractincludes: The kidneys. The ureters. The bladder. The urethra. These organs make, store, and get rid of pee (urine) in the body. What are the causes? This is caused by germs (bacteria) in your genital area. These germs grow and cause swelling (inflammation) of your urinary tract. What increases the risk? You are more likely to develop this condition if: You have a small, thin tube (catheter) to drain pee. You cannot control when you pee or poop (incontinence). You are female, and: ? You use these methods to prevent : ? A medicine that kills sperm (spermicide). ? A device that blocks sperm (diaphragm). ? You have low levels of a female hormone (estrogen). ? You are . You have genes that add to your risk. You are sexually active. You take antibiotic medicines. You have trouble peeing because of: ? A prostate that is bigger than normal, if you are male. ? A blockage in the part of your body that drains pee from the bladder (urethra). ? A kidney stone. ? A nerve condition that affects your bladder (neurogenic bladder). ? Not getting enough to drink. ? Not peeing often enough. You have other conditions, such as: ? Diabetes. ? A weak disease-fighting system (immune system). ? Sickle cell disease. ? Gout. ? Injury of the spine. What are the signs or symptoms? Symptoms of this condition include: Needing to pee right away (urgently). Peeing often. Peeing small amounts often. Pain or burning when peeing. Blood in the pee. Pee that smells bad or not like normal. Trouble peeing. Pee that is cloudy. Fluid coming from the vagina, if you are female. Pain in the belly or lower back. Other symptoms include: Throwing up (vomiting). No urge to eat. Feeling mixed up (confused). Being tired and grouchy (irritable). A fever. Watery poop (diarrhea). How is this treated? This condition may be treated with: Antibiotic medicine. Other medicines. Drinking enough water. Follow these instructions at home: Medicines Take abvm-vke-uhvqlle and prescription medicines only as told by your doctor. If you were prescribed an antibiotic medicine, take it as told by your doctor. Do not stop taking it even if you start to feel better. General instructions Make sure you: ? Pee until your bladder is empty. ? Do not hold pee for a long time. ? Empty your bladder after sex. ? Wipe from front to back after pooping if you are a female. Use each tissue one time when you wipe. Drink enough fluid to keep your pee pale yellow. Keep all follow-up visits as told by your doctor. This is important. Contact a doctor if: You do not get better after 1 2 days. Your symptoms go away and then come back. Get help right away if: You have very bad back pain. You have very bad pain in your lower belly. You have a fever. You are sick to your stomach (nauseous). You are throwing up. Summary A urinary tract infection (UTI) is an infection of any part of the urinary tract. This condition is caused by germs in your genital area. There are many risk factors for a UTI. These include having a small, thin tube to drain pee and notbeing able to control when you pee or poop. Treatment includes antibiotic medicines for germs. Drink enough fluid to keep your pee pale yellow. This information is not intended to replace advice given to you by your health care provider. Make sure you discuss any questions you have with your health care provider. Document Released: 04/07/2009 Document Revised: 10/07/2019 Document Reviewed: 04/29/2019 [employer] Patient Education 2020 [employer] Additional Information VACCINATE! IT SAVES LIVES! Members of the community who have not yet received the COVID-19 vaccine and would like to receive it can visit one of [facility] vaccine clinics. There are many vaccine clinic locations within the [facility]. For locations and available times, please visit [email or web address].[place].gov/. It is important to note that some COVID mobile vaccine clinics are held outdoors and may be canceled in rainy or stormy conditions. To learn more about pediatric vaccinations (ages 5-11), we invite you to visit the [facility] webpage. https://www.[facility].org/pages/7509-Xgbee-Qfjlmphwghw-Dywmsyrrue-Qppmv-Xen stions.htmlTo learn more about the COVID-19 vaccine, we invite you to visit the CDC website for a list of frequently asked questions. https://www.cdc.gov/coronavirus/2019-ncov/vaccines/faq.html [place] [facility] [employer] Patient Portal Access Instructions: Stay connected with your healthcare team and access your personal medical information anytime with the [facility] Patient Portal.If you would like a full copy of your medical records, please contact the [facility] Medical Records Department, Friday through Friday between 8a.m. and 4:30p.m. Please follow the directions below to access the portal: 1.Access the email account you provided upon registration to the [facility].2.Look for an invitation email from [facility].3.Open the email and access the invitation link: Accept Invitation to [facility]4.Fill in the required quintero to create your account. Sign into [email or web address] with your username and password that you created in the above steps to stay up to date. You can then view a summary of results, a summary of your visits, and the ability to download your summaries to your computer or send the information securely to a physician. Remember that your healthcare information is confidential, so carefully consider who you will allow to register on the [facility] Patient Portal for access to your information. You can also access the [facility] Patient Portal on the Lag[employer] joya. Simply click on Health Records under HealthData and then click on the [employer] logo. HOW TO SAFELY DISPOSE OF PRESCRIPTION MEDICATIONS Please use one of the following methods to safely dispose of your unused medications. 1.Use a drug disposal kit: the drug disposal pouch allows you to safely discard your old and unuseddrugs. Ask your nurse to give you one when you are discharged.2.Visit a local take-back location: Many local pharmacies and police departments have programs that collect old and unwanted prescriptiondrugs. Call your local pharmacy or go to http://bit.ConsumerBell/0K8Fg7y to find one close to you.3.Make use of household items: Use cat litter or old coffee grounds to dispose medications if other options arenot available. Mix your drugs with these household products, seal them in an airtight container andthrow it into the garbage. Call [facility]: [phone] to be sure your drugs can be disposed of in this way. Some medicines may require a different approach.4.Never flush your medications down the toilet. IF YOU HAVE BEEN PRESCRIBED AN OPIOID FOR PAIN If you have been prescribed an opioid (such as hydrocodone, oxycodone or morphine), it is critical to understand the possible side effects and risks of opioid pain medications. Even when taken as directed, opioids can have several side effects including: Tolerance, meaning you might need to take more of a medication for the same pain relief. Nausea, vomiting and/or constipation. Sleepiness, dizziness, dry mouth, confusion, depression or itching. Physical dependence, meaning you have withdrawal symptoms when a medication is stopped, can develop within a few days. KNOW YOUR RESPONSIBILITIES It is important to know exactly how much and how often to take the opioid pain medications you are prescribed. Never take opioids in higher amounts or more often than prescribed. Do not combine opioids with alcohol or other drugs that cause drowsiness, such as benzodiazepines, also known as benzos, including diazepam and alprazolam, muscle relaxants or sleep aids. Never sell or share prescription opioids. This is illegal. Store opioids in a secure place and out of reach of others (including children, family, friends and visitors). The last page of this document has been signed and retained as a CHART COPY. Signatures Patient Education Materials Urinary Tract Infection, Adult, Zmnd-hb-Mwow Medication Leaflets My discharge plan and instructions have been reviewed and explained to me and I,LALY NAVAS understand my current condition and have read and understand these discharge instructions. I have received a written copy of the plan/instructions. If I have questions, I am aware that I should contact my doctor. 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 Complicated UTI (urinary tract infection) (N39.0 - ICD-10-CM) 2. Pelvic pain in female (R10.2 - ICD-10-CM) 3. Nausea (R11.0 - ICD-10-CM) 4. Anxiety (F41.9 - ICD-10-CM) 5. Port-A-Cath in place (Z95.828 - ICD-10-CM) 6. History of chemotherapy (Z92.21 - ICD-10-CM) 7. Acute kidney injury (N17.9 - ICD-10-CM) 8. Decreased appetite (R63.0 - ICD-10-CM) 9. Nephrostomy status (Z93.6 - ICD-10-CM) 10. Tobacco use (Z72.0 - ICD-10-CM) 11. Left flank pain (R10.9 - ICD-10-CM) Hospital Course Patient is a 32 yo woman with a history of stage IIIB cervical cancer s/p chemoradiation,has a history obstructive uropathy with left nephrostomy tube in place; admitted for pelvic pain and complicated urinary tract infection. Nephrostomy output wth blood tinged drainage. UA positive fornitrites. She was started on Zosyn antibiotics empirically. On 01/01 she had a urogram study, showingno evidence of right urinary tract obstruction. On 01/02, she had her left nephrostomy tube exchanged. Urine cultures returned as contaminated. Antibiotics were continued. Patient improved clinically, with reduced pelvic pain. Antibiotics were transitioned to Ciprofloxacin for 7 days. Rx was sent for remaining 3.5 days. Deemed stable for discharge on 01/06/2023. Allergies Oranges penicillin Procedures Left nephrostomy tube exchange Consults Consult to Physician - Ordered -- 01/03/23 11:20:00 JASPAL FAY MICHAEL MD, Routine, I don't want to exit Objective Vitals and Measurements T: 36.7 C (Oral) TMIN: 36.6 C (Oral) TMAX: 36.8 C (Oral) HR: 73 RR: 16 BP: 137/92 SpO2: 98% Weight Dosing Weight: 47.7 kg (01/01/23) Code Status Code Status - Ordered -- 01/01/23 17:37:00 EST, DNRCC-Arrest Intubate & Mechanical Vent, Constant Order Admission Date 01/01/2023 Discharge Date 01/06/2023 Medications New Prescription ciprofloxacin (ciprofloxacin 500 mg oral tablet)1 tab(s) by mouth every 12 hours for 4 Days. Refills: 0. mirtazapine (mirtazapine 15 mg oral tablet)1 tab(s) by mouth once a day. Refills: 3. Discontinued acetaminophen (Tylenol 325 mg oral capsule)650 Milligram by mouth every 4 hours as needed Pain, scale 1-3. acetaminophen-oxyCODONE (acetaminophen-oxyCODONE 325 mg-5 mg oral tablet)1 tab(s) by mouth every 6 hours for 30 Days. Refills: 0. docusate (Colace 100 mg oral capsule)1 cap by mouth two (2) times a day as needed as needed for constipation. Refills: 2. gabapentin (gabapentin 300 mg oral capsule)1 cap by mouth daily at bedtime for 30 Days. Refills: 3. LORazepam (Ativan 1 mg oral tablet)1 tab(s) by mouth three (3) times a day as needed as needed for anxiety for 30 Days. Refills: 0. ondansetron (Zofran 4 mg oral tablet)1 tab(s) by mouth every 6 hours as needed Nausea/Vomiting. Refills: 1. sodium chloride (Normal Saline Flush 0.9% injectable solution)10 Milliliter IR Drain every day. Refills: 12. Follow Up Follow Up with FLIP MARTIN MD When Within 1-2 days Why: Please call the office to schedule a follow up appointment Where: [address] [facility] [place] [address]- Follow Up Appointments [address] week follow up with Dr. Martin Discharge Diet Discharge Diet - Ordered -- No changes were made to your diet during your hospital stay. Please resume your pre hospitalization diet on discharge., 01/06/23 14:41:00 EST Discharge Activity As tolerated Condition on Discharge Stable Discharge Disposition Discharge to home Digitally Signed by ALANNA SCANLON DO on 01/06/2023 04:49 PM Digitally Signed by FLIP MARTIN MD [facility] [id number] Note Date of Service 01/06/2023 Chief Complaint pain, infected nephrostomy tube Subjective Patient seen and examined. No acute events. Patient reported pain not terrible this AM. Denies fevers, chills, CP, SOB, N/V/D. Objective Vitals and Measurements T: 36.6 C (Oral) TMIN: 36.4 C (Oral) TMAX: 37.2 C (Oral) HR: 68 RR: 16 BP: 109/73 SpO2: 98% Intake and Output 7AM Yesterday to 7AM Today Intake and Output (Last 24 hours) Intake Administration Information 760.00 Output Urine Voided 200.00 Urostomy Output: 1300.00 Stool Count 1.00 Total Summary Total Intake 760.00 Total Output 1500.00 Fluid Balance -740.00 Physical Exam General: A&Ox3, no apparent distress Resp: clear to auscultation bilaterally CV: normal rate and rhythm Abdomen: Soft, appropriate tenderness, nonrigid, no peritoneal signs, positive bowel sounds throughout Ext: No lower extremity edema. No cyanosis. Negative Homans sign UOP: _ cc/8hr of clear, yellow urine Neuro: No focal deficits Weight Dosing Weight: 47.7 kg (01/01/23) Medications Medications (18) Active Scheduled: (9) acetaminophen 325 mg Tablet 650 mg 2 tab(s), Oral, q4h ciprofloxacin 500 mg Tablet 500 mg 1 tab(s), Oral, q12h docusate sodium 100 mg Capsule 100 mg 1 cap(s), Oral, BID gabapentin 300 mg Capsule 300 mg 1 cap(s), Oral, qHS heparin 5,000 units/mL (1 mL) vial 5,000 unit(s) 1 mL, Subcutaneous, q8h mirtazapine 15 mg tablet 15 mg 1 tab(s), Oral, qDay Nicoderm patch REMOVAL 1 EA, Miscellaneous, q24h nicotine 7 mg/24 hr ER patch 7 mg 1 patch(es), Transdermal, q24h ondansetron 2 mg/ 1 mL 2 mL INJ 4 mg 2 mL, IV Push, q4h Continuous: (1) NS (0.9% nacl) 1,000 mL 1,000 mL, Intravenous, 20 mL/hr PRN: (8) famotidine 20 mg tablet 20 mg 1 tab(s), Oral, BID LORAZEPam 1 mg Tablet 1 mg 1 tab(s), Oral, TID melatonin 3 mg tablet 3 mg 1 tab(s), Oral, qHS naloxone 0.4 mg/mL (1mL) vial 0.2 mg 0.5 mL, IV Push, AsDirected oxycodone 5 mg tablet (immediate release) 5 mg 1 tab(s), Oral, q4h oxycodone 5 mg tablet (immediate release) 10 mg 2 tab(s), Oral, q4h pantoprazole 40 mg VIAL 40 mg, IV Push, qDay promethazine 12.5 mg tablet 12.5 mg 1 tab(s), Oral, q6h Lab Results 36hr Labs 01/05 0547 Creatinine Lvl (s) 0.79 Albumin Level 2.4 L Alk Phos 57 Bili Total <0.20 BUN 8.0 Calcium Lvl 8.6 L Chloride 113 H CO2 26 Glucose Level 93 Magnesium Lvl 2.0 Potassium Level 4.2 Sodium Level 142 Total Protein 4.6 L BUN/Creatinine Ratio 10.1 Globulin 2.2 A/G Ratio 1.1 AST/SGOT 11 ALT/SGPT <8 L Electrolyte Balance 3.0 L Phosphorus 3.8 GFR Non- >60 GFR >60 Hct 33.7 L Hgb 11.1 L MCH 32.7 MCHC 33.0 MCV 99.0 MPV 7.4 Platelet 318 RBC 3.40 L RDW 14.1 WBC 5.4 Lymphocyte % 29.7 Monocyte % 10.9 Neutrophil % 49.9 L Eosinophil % 8.2 H Basophil % 1.3 Neutrophil, Absolute 2.7 Lymphocyte, Absolute 1.6 Monocyte, Absolute 0.6 Eosinophil, Absolute 0.4 Basophil, Absolute 0.1 Imaging Results and Diagnostics IR Neph Cath-Neph Ureter w/Guide Right Result Date: January 02, 2023 Verified By: VIRAL MANUEL MD CLINICAL STATEMENT: IMPRESSION: Successful left percutaneous nephroureteral catheter exchange. CT Urogram Result Date: January 01, 2023 Verified By: TRICIA MCCALL MD CLINICAL STATEMENT: IMPRESSION: 1. Expected placement of left nephro-ureteric stent.2. No evidence of right urinary tract obstruction. Assessment/Plan Patient is a 32 yo woman with a history of stage IIIB cervical cancer s/p chemoradiationiin remission, has a history obstructive uropathy with left nephrostomy tube in place; admitted for pelvic pain and complicated urinary tract infection. >> Admit to regular floor >> Condition: Stable >> Vitals: q4hr >> Activity: Ambulate, up to chair >> Diet: Regular >> IVF: NS 75 cc/hr-->20cc/h >> DVT Prophylaxis: SCDs, Heparin 5000 U TID Complicated Urinary Tract Infection - Recurrent history of complicated urinary tract infection with ESBL / E. coli / Enterococcus / Klebsiella pneumonia - 01/01 Urogram: No evidence of right urinary tract obstruction. - Overall kidney function stable - Meropenem-->Ciprofloxacin 500mg q12h, treat for total of 7 days - IVF NS 20cc/hr Pelvic pain - Likely due to history of chemoradiation therapy - Stable this AM History of cervical cancer - Stage IIIB SCC of cervix - S/p Chemoradiation, currently in remission -Recent CT 08/02/22 unremarkable for signs of cancer recurrence -Recent Pap smear (07/15) negative for cervical dysplasia, however positive for HPV. For 6 months follow up per Dr. Martin's last note - Port-A-Cath in place Tobacco - For Nicotine patch if patient desires - Smokes 1/2 PPD Anxiety - Declined counseling - Continue Ativan home dose TID PRN Asthma - asymptomatic Obstructive uropathy s/p Left Nephrostomy tube - exchanged 01/02/23 Poor appetite - resolving with Remeron Disposition: Home today Digitally Signed by ENZO JONES DO Digitally Signed by ALANNA SCANLON DO on 01/06/2023 06:53 AM Digitally Signed by FLIP MARTIN MD [facility] [id number] Note Date of Service 01/05/2023 Chief Complaint pain, infected nephrostomy tube Subjective Patient seen and examined. No acute events overnight. Pain decently controlled on current pain regimen. having bowel movements. Has voided spontanesouly 100cc. Denies vaginal bleeding. Denies fevers,chills, CP, SOB, N/V. Tolerating PO. Ambulating w/o difficulty. Objective Vitals and Measurements T: 36.9 C (Oral) TMIN: 36.9 C (Oral) TMAX: 37.1 C (Oral) HR: 65 RR: 16 BP: 113/76 SpO2: 99% Intake and Output 7AM Yesterday to 7AM Today Intake and Output (Last 24 hours) Intake Administration Information 600.00 Oral Intake 240.00 Output Urine Voided 100.00 Urostomy Output: 650.00 Stool Count 1.00 Total Summary Total Intake 840.00 Total Output 750.00 Fluid Balance 90.00 Physical Exam General: A&Ox3, no apparent distress Resp: clear to auscultation bilaterally CV: normal rate and rhythm Abdomen: Soft, nontender, nonrigid, no peritoneal signs, positive bowel sounds throughout Ext: No lower extremity edema. No cyanosis. Negative Homans sign UOP: 650 cc/24hr of clear, yellow urine L nephrostomy tube, 100cc spontaneous void Weight Dosing Weight: 47.7 kg (01/01/23) Medications Medications (19) Active Scheduled: (9) acetaminophen 325 mg Tablet 650 mg 2 tab(s), Oral, q4h ciprofloxacin 500 mg Tablet 500 mg 1 tab(s), Oral, q12h docusate sodium 100 mg Capsule 100 mg 1 cap(s), Oral, BID gabapentin 300 mg Capsule 300 mg 1 cap(s), Oral, qHS heparin 5,000 units/mL (1 mL) vial 5,000 unit(s) 1 mL, Subcutaneous, q8h mirtazapine 15 mg tablet 15 mg 1 tab(s), Oral, qDay Nicoderm patch REMOVAL 1 EA, Miscellaneous, q24h nicotine 7 mg/24 hr ER patch 7 mg 1 patch(es), Transdermal, q24h ondansetron 2 mg/ 1 mL 2 mL INJ 4 mg 2 mL, IV Push, q4h Continuous: (1) NS (0.9% nacl) 1,000 mL 1,000 mL, Intravenous, 75 mL/hr PRN: (9) diphenhydramine 25 mg tablet 25 mg 1 tab(s), Oral, qHS famotidine 20 mg tablet 20 mg 1 tab(s), Oral, BID LORAZEPam 1 mg Tablet 1 mg 1 tab(s), Oral, TID melatonin 3 mg tablet 3 mg 1 tab(s), Oral, qHS naloxone 0.4 mg/mL (1mL) vial 0.2 mg 0.5 mL, IV Push, AsDirected oxycodone 5 mg tablet (immediate release) 5 mg 1 tab(s), Oral, q4h oxycodone 5 mg tablet (immediate release) 10 mg 2 tab(s), Oral, q4h pantoprazole 40 mg VIAL 40 mg, IV Push, qDay promethazine 12.5 mg tablet 12.5 mg 1 tab(s), Oral, q6h Lab Results 36hr Labs 01/05 0547 Creatinine Lvl (s) 0.79 Albumin Level 2.4 L Alk Phos 57 Bili Total <0.20 BUN 8.0 Calcium Lvl 8.6 L Chloride 113 H CO2 26 Glucose Level 93 Magnesium Lvl 2.0 Potassium Level 4.2 Sodium Level 142 Total Protein 4.6 L BUN/Creatinine Ratio 10.1 Globulin 2.2 A/G Ratio 1.1 AST/SGOT 11 ALT/SGPT <8 L Electrolyte Balance 3.0 L Phosphorus 3.8 GFR Non- >60 GFR >60 Hct 33.7 L Hgb 11.1 L MCH 32.7 MCHC 33.0 MCV 99.0 MPV 7.4 Platelet 318 RBC 3.40 L RDW 14.1 WBC 5.4 Lymphocyte % 29.7 Monocyte % 10.9 Neutrophil % 49.9 L Eosinophil % 8.2 H Basophil % 1.3 Neutrophil, Absolute 2.7 Lymphocyte, Absolute 1.6 Monocyte, Absolute 0.6 Eosinophil, Absolute 0.4 Basophil, Absolute 0.1 01/04 0514 Creatinine Lvl (s) 0.81 Albumin Level 2.6 L Alk Phos 61 Bili Total <0.20 BUN 9.0 Calcium Lvl 8.5 L Chloride 115 H CO2 27 Glucose Level 90 Magnesium Lvl 2.1 Potassium Level 4.2 Sodium Level 143 Total Protein 4.9 L BUN/Creatinine Ratio 11.1 Globulin 2.3 A/G Ratio 1.1 AST/SGOT 9 ALT/SGPT <7 L Electrolyte Balance 1.0 L Phosphorus 3.9 GFR Non- >60 GFR >60 Hct 33.5 L Hgb 11.2 L MCH 33.0 MCHC 33.6 MCV 98.4 MPV 7.3 Platelet 321 RBC 3.40 L RDW 14.3 WBC 5.7 Lymphocyte % 33.8 Monocyte % 8.3 Neutrophil % 48.2 L Eosinophil % 8.5 H Basophil % 1.2 Neutrophil, Absolute 2.8 Lymphocyte, Absolute 1.9 Monocyte, Absolute 0.5 Eosinophil, Absolute 0.5 Basophil, Absolute 0.1 Imaging Results and Diagnostics IR Neph Cath-Neph Ureter w/Guide Right Result Date: January 02, 2023 Verified By: VIRAL MANUEL MD CLINICAL STATEMENT: IMPRESSION: Successful left percutaneous nephroureteral catheter exchange. CT Urogram Result Date: January 01, 2023 Verified By: TRICIA MCCALL MD CLINICAL STATEMENT: IMPRESSION: 1. Expected placement of left nephro-ureteric stent.2. No evidence of right urinary tract obstruction. Assessment/Plan Patient is a 32 yo woman with a history of stage IIIB cervical cancer s/p chemoradiationiin remission, has a history obstructive uropathy with left nephrostomy tube in place; admitted for pelvic pain and complicated urinary tract infection. >> Admit to regular floor >> Condition: Stable >> Vitals: q4hr >> Activity: Ambulate, up to chair >> Diet: Regular >> IVF: NS 75 cc/hr-->20cc/h >> DVT Prophylaxis: SCDs, Complicated Urinary Tract Infection - admitted for pelvic pain, flank pain, and UTI - Recurrent history of complicated urinary tract infection with ESBL / E. coli / Enterococcus / Klebsiella pneumonia - Meropenem-->Ciprofloxacin 500mg q12h, treat for total of 7 days. - Overall kidney function stable - IVF NS 20cc/hr - 01/01 Urogram: No evidence of right urinary tract obstruction. Pelvic pain - Likely due to history of chemoradiation therapy - Pain decently tolerated on po pain meds per patient History of cervical cancer - Stage IIIB SCC of cervix - S/p Chemoradiation, currently in remission -Recent CT 08/02/22 unremarkable for signs of cancer recurrence -Recent Pap smear (07/15) negative for cervical dysplasia, however positive for HPV. For 6 months follow up per Dr. Martin's last note - Port-A-Cath in place Tobacco - For Nicotine patch if patient desires - Smokes 1/2 PPD Anxiety - Declined counseling - Continue Ativan home dose TID PRN Asthma - asymptomatic Obstructive uropathy s/p Left Nephrostomy tube - exchanged 01/02/23 Poor appetite - resolving with remeron Disposition: Home today Digitally Signed by ENZO JONES DO on 01/05/2023 08:50 AM [facility] [id number] Note Date of Service 01/05/2023 Chief Complaint pain, infected nephrostomy tube Subjective Patient seen and examined. No acute events overnight. Pain decently controlled on current pain regimen. having bowel movements. Has voided spontanesouly 100cc. Denies vaginal bleeding. Denies fevers,chills, CP, SOB, N/V. Tolerating PO. Ambulating w/o difficulty. Objective Vitals and Measurements T: 36.9 C (Oral) TMIN: 36.9 C (Oral) TMAX: 37.1 C (Oral) HR: 65 RR: 16 BP: 113/76 SpO2: 99% Intake and Output 7AM Yesterday to 7AM Today Intake and Output (Last 24 hours) Intake Administration Information 600.00 Oral Intake 240.00 Output Urine Voided 100.00 Urostomy Output: 650.00 Stool Count 1.00 Total Summary Total Intake 840.00 Total Output 750.00 Fluid Balance 90.00 Physical Exam General: A&Ox3, no apparent distress Resp: clear to auscultation bilaterally CV: normal rate and rhythm Abdomen: Soft, nontender, nonrigid, no peritoneal signs, positive bowel sounds throughout Ext: No lower extremity edema. No cyanosis. Negative Homans sign UOP: 650 cc/24hr of clear, yellow urine L nephrostomy tube, 100cc spontaneous void Weight Dosing Weight: 47.7 kg (01/01/23) Medications Medications (19) Active Scheduled: (9) acetaminophen 325 mg Tablet 650 mg 2 tab(s), Oral, q4h ciprofloxacin 500 mg Tablet 500 mg 1 tab(s), Oral, q12h docusate sodium 100 mg Capsule 100 mg 1 cap(s), Oral, BID gabapentin 300 mg Capsule 300 mg 1 cap(s), Oral, qHS heparin 5,000 units/mL (1 mL) vial 5,000 unit(s) 1 mL, Subcutaneous, q8h mirtazapine 15 mg tablet 15 mg 1 tab(s), Oral, qDay Nicoderm patch REMOVAL 1 EA, Miscellaneous, q24h nicotine 7 mg/24 hr ER patch 7 mg 1 patch(es), Transdermal, q24h ondansetron 2 mg/ 1 mL 2 mL INJ 4 mg 2 mL, IV Push, q4h Continuous: (1) NS (0.9% nacl) 1,000 mL 1,000 mL, Intravenous, 75 mL/hr PRN: (9) diphenhydramine 25 mg tablet 25 mg 1 tab(s), Oral, qHS famotidine 20 mg tablet 20 mg 1 tab(s), Oral, BID LORAZEPam 1 mg Tablet 1 mg 1 tab(s), Oral, TID melatonin 3 mg tablet 3 mg 1 tab(s), Oral, qHS naloxone 0.4 mg/mL (1mL) vial 0.2 mg 0.5 mL, IV Push, AsDirected oxycodone 5 mg tablet (immediate release) 5 mg 1 tab(s), Oral, q4h oxycodone 5 mg tablet (immediate release) 10 mg 2 tab(s), Oral, q4h pantoprazole 40 mg VIAL 40 mg, IV Push, qDay promethazine 12.5 mg tablet 12.5 mg 1 tab(s), Oral, q6h Lab Results 36hr Labs 01/05 0547 Creatinine Lvl (s) 0.79 Albumin Level 2.4 L Alk Phos 57 Bili Total <0.20 BUN 8.0 Calcium Lvl 8.6 L Chloride 113 H CO2 26 Glucose Level 93 Magnesium Lvl 2.0 Potassium Level 4.2 Sodium Level 142 Total Protein 4.6 L BUN/Creatinine Ratio 10.1 Globulin 2.2 A/G Ratio 1.1 AST/SGOT 11 ALT/SGPT <8 L Electrolyte Balance 3.0 L Phosphorus 3.8 GFR Non- >60 GFR >60 Hct 33.7 L Hgb 11.1 L MCH 32.7 MCHC 33.0 MCV 99.0 MPV 7.4 Platelet 318 RBC 3.40 L RDW 14.1 WBC 5.4 Lymphocyte % 29.7 Monocyte % 10.9 Neutrophil % 49.9 L Eosinophil % 8.2 H Basophil % 1.3 Neutrophil, Absolute 2.7 Lymphocyte, Absolute 1.6 Monocyte, Absolute 0.6 Eosinophil, Absolute 0.4 Basophil, Absolute 0.1 01/04 0514 Creatinine Lvl (s) 0.81 Albumin Level 2.6 L Alk Phos 61 Bili Total <0.20 BUN 9.0 Calcium Lvl 8.5 L Chloride 115 H CO2 27 Glucose Level 90 Magnesium Lvl 2.1 Potassium Level 4.2 Sodium Level 143 Total Protein 4.9 L BUN/Creatinine Ratio 11.1 Globulin 2.3 A/G Ratio 1.1 AST/SGOT 9 ALT/SGPT <7 L Electrolyte Balance 1.0 L Phosphorus 3.9 GFR Non- >60 GFR >60 Hct 33.5 L Hgb 11.2 L MCH 33.0 MCHC 33.6 MCV 98.4 MPV 7.3 Platelet 321 RBC 3.40 L RDW 14.3 WBC 5.7 Lymphocyte % 33.8 Monocyte % 8.3 Neutrophil % 48.2 L Eosinophil % 8.5 H Basophil % 1.2 Neutrophil, Absolute 2.8 Lymphocyte, Absolute 1.9 Monocyte, Absolute 0.5 Eosinophil, Absolute 0.5 Basophil, Absolute 0.1 Imaging Results and Diagnostics IR Neph Cath-Neph Ureter w/Guide Right Result Date: January 02, 2023 Verified By: VIRAL MANUEL MD CLINICAL STATEMENT: IMPRESSION: Successful left percutaneous nephroureteral catheter exchange. CT Urogram Result Date: January 01, 2023 Verified By: TRICIA MCCALL MD CLINICAL STATEMENT: IMPRESSION: 1. Expected placement of left nephro-ureteric stent.2. No evidence of right urinary tract obstruction. Assessment/Plan Patient is a 32 yo woman with a history of stage IIIB cervical cancer s/p chemoradiationiin remission, has a history obstructive uropathy with left nephrostomy tube in place; admitted for pelvic pain and complicated urinary tract infection. >> Admit to regular floor >> Condition: Stable >> Vitals: q4hr >> Activity: Ambulate, up to chair >> Diet: Regular >> IVF: NS 75 cc/hr-->20cc/h >> DVT Prophylaxis: SCDs, Complicated Urinary Tract Infection - admitted for pelvic pain, flank pain, and UTI - Recurrent history of complicated urinary tract infection with ESBL / E. coli / Enterococcus / Klebsiella pneumonia - Meropenem-->Ciprofloxacin 500mg q12h, treat for total of 7 days. - Overall kidney function stable - IVF NS 20cc/hr - 3/ Urogram: No evidence of right urinary tract obstruction. Pelvic pain - Likely due to history of chemoradiation therapy - Pain decently tolerated on po pain meds per patient History of cervical cancer - Stage IIIB SCC of cervix - S/p Chemoradiation, currently in remission -Recent CT 08/02/22 unremarkable for signs of cancer recurrence -Recent Pap smear (07/15) negative for cervical dysplasia, however positive for HPV. For 6 months follow up per Dr. Martin's last note - Port-A-Cath in place Tobacco - For Nicotine patch if patient desires - Smokes 1/2 PPD Anxiety - Declined counseling - Continue Ativan home dose TID PRN Asthma - asymptomatic Obstructive uropathy s/p Left Nephrostomy tube - exchanged 01/02/23 Poor appetite - resolving with remeron Disposition: Home today Digitally Signed by ENZO JONES DO on 01/05/2023 08:50 AM [id number] Note Date of Service 01/05/2023 Chief Complaint pain, infected nephrostomy tube Subjective Patient seen and examined. No acute events overnight. Pain decently controlled on current pain regimen. having bowel movements. Has voided spontanesouly 100cc. Denies vaginal bleeding. Denies fevers,chills, CP, SOB, N/V. Tolerating PO. Ambulating w/o difficulty. Objective Vitals and Measurements T: 36.9 C (Oral) TMIN: 36.9 C (Oral) TMAX: 37.1 C (Oral) HR: 65 RR: 16 BP: 113/76 SpO2: 99% Intake and Output 7AM Yesterday to 7AM Today Intake and Output (Last 24 hours) Intake Administration Information 600.00 Oral Intake 240.00 Output Urine Voided 100.00 Urostomy Output: 650.00 Stool Count 1.00 Total Summary Total Intake 840.00 Total Output 750.00 Fluid Balance 90.00 Physical Exam General: A&Ox3, no apparent distress Resp: clear to auscultation bilaterally CV: normal rate and rhythm Abdomen: Soft, nontender, nonrigid, no peritoneal signs, positive bowel sounds throughout Ext: No lower extremity edema. No cyanosis. Negative Homans sign UOP: 650 cc/24hr of clear, yellow urine L nephrostomy tube, 100cc spontaneous void Weight Dosing Weight: 47.7 kg (01/01/23) Medications Medications (19) Active Scheduled: (9) acetaminophen 325 mg Tablet 650 mg 2 tab(s), Oral, q4h ciprofloxacin 500 mg Tablet 500 mg 1 tab(s), Oral, q12h docusate sodium 100 mg Capsule 100 mg 1 cap(s), Oral, BID gabapentin 300 mg Capsule 300 mg 1 cap(s), Oral, qHS heparin 5,000 units/mL (1 mL) vial 5,000 unit(s) 1 mL, Subcutaneous, q8h mirtazapine 15 mg tablet 15 mg 1 tab(s), Oral, qDay Nicoderm patch REMOVAL 1 EA, Miscellaneous, q24h nicotine 7 mg/24 hr ER patch 7 mg 1 patch(es), Transdermal, q24h ondansetron 2 mg/ 1 mL 2 mL INJ 4 mg 2 mL, IV Push, q4h Continuous: (1) NS (0.9% nacl) 1,000 mL 1,000 mL, Intravenous, 75 mL/hr PRN: (9) diphenhydramine 25 mg tablet 25 mg 1 tab(s), Oral, qHS famotidine 20 mg tablet 20 mg 1 tab(s), Oral, BID LORAZEPam 1 mg Tablet 1 mg 1 tab(s), Oral, TID melatonin 3 mg tablet 3 mg 1 tab(s), Oral, qHS naloxone 0.4 mg/mL (1mL) vial 0.2 mg 0.5 mL, IV Push, AsDirected oxycodone 5 mg tablet (immediate release) 5 mg 1 tab(s), Oral, q4h oxycodone 5 mg tablet (immediate release) 10 mg 2 tab(s), Oral, q4h pantoprazole 40 mg VIAL 40 mg, IV Push, qDay promethazine 12.5 mg tablet 12.5 mg 1 tab(s), Oral, q6h Lab Results 36hr Labs 03/05 0547 Creatinine Lvl (s) 0.79 Albumin Level 2.4 L Alk Phos 57 Bili Total <0.20 BUN 8.0 Calcium Lvl 8.6 L Chloride 113 H CO2 26 Glucose Level 93 Magnesium Lvl 2.0 Potassium Level 4.2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 dry, intact Pelvis: No signs of active vaginal bleeding Ext: No lower extremity edema. No cyanosis. Negative Homans sign UOP: _ cc/8hr of clear, yellow urine Weight Dosing Weight: 47.7 kg (01/01/23) Medications Medications (18) Active Scheduled: (9) acetaminophen 325 mg Tablet 650 mg 2 tab(s), Oral, q4h docusate sodium 100 mg Capsule 100 mg 1 cap(s), Oral, BID gabapentin 300 mg Capsule 300 mg 1 cap(s), Oral, qHS heparin 5,000 units/mL (1 mL) vial 5,000 unit(s) 1 mL, Subcutaneous, q8h hydromorphone 1 mg/mL (1mL) INJ 1 mg 1 mL, IV Push, q4h Nicoderm patch REMOVAL 1 EA, Miscellaneous, q24h nicotine 7 mg/24 hr ER patch 7 mg 1 patch(es), Transdermal, q24h ondansetron 2 mg/ 1 mL 2 mL INJ 4 mg 2 mL, IV Push, q4h piperacillin-tazobactam PMX 3.375 gram(s) 50 mL, IV Piggyback, q8hr Continuous: (1) NS (0.9% nacl) 1,000 mL 1,000 mL, Intravenous, 75 mL/hr PRN: (8) diphenhydramine 25 mg tablet 25 mg 1 tab(s), Oral, qHS famotidine 20 mg tablet 20 mg 1 tab(s), Oral, BID LORAZEPam 1 mg Tablet 1 mg 1 tab(s), Oral, TID melatonin 3 mg tablet 3 mg 1 tab(s), Oral, qHS oxycodone 5 mg tablet (immediate release) 5 mg 1 tab(s), Oral, q4h oxycodone 5 mg tablet (immediate release) 10 mg 2 tab(s), Oral, q4h pantoprazole 40 mg VIAL 40 mg, IV Push, qDay promethazine 12.5 mg tablet 12.5 mg 1 tab(s), Oral, q6h Lab Results 01/02 05:14 WBC: 6.7 Hgb: 11.6 L Hct: 34.2 Platelet: 320 Neutrophil %: 49.7 L Glucose Level: 87 Sodium Level: 140 Potassium Level: 3.8 BUN: 14.0 Creatinine Lvl (s): 0.98 Imaging Results and Diagnostics IR Neph Cath-Neph Ureter w/Guide Right Result Date: January 02, 2023 Verified By: VIRAL MANUEL MD CLINICAL STATEMENT: IMPRESSION: Successful left percutaneous nephroureteral catheter exchange. CT Urogram Result Date: January 01, 2023 Verified By: TRICIA MCCALL MD CLINICAL STATEMENT: IMPRESSION: 1. Expected placement of left nephro-ureteric stent.2. No evidence of right urinary tract obstruction. Assessment/Plan Patient is a 32 yo woman with a history of stage IIIB cervical cancer s/p chemoradiationiin remission, has a history obstructive uropathy with left nephrostomy tube in place; admitted for pelvic pain and complicated urinary tract infection. >> Admit to regular floor >> Condition: Stable >> Vitals: q4hr >> Activity: Ambulate, up to chair >> Diet: NPO for procedure >> IVF: NS 75 cc/hr >> DVT Prophylaxis: SCDs, Heparin held for procedure Complicated Urinary Tract Infection - Directly admitted for pelvic pain, flank pain, and UTI - Left Nephrostomy tube in place since 2019. Last IR nephrostomy tube exchange 08/14/2022 - Recurrent history of complicated urinary tract infection with ESBL / E. coli / Enterococcus / Klebsiella pneumonia - Urinalysis tests from L nephrostomy tube and clean catch both positive for nitrites, await cultures and sensitivities - Continue Zosyn - Overall kidney function stable, Cr 0.98 - IVF NS 75cc/hr - Strict I's and O's - Voided 100cc overnight, 600cc L Nephrostomy output - 01/01 Urogram: No evidence of right urinary tract obstruction. - Nephrostomy tube exchange today - Blood culture pending Pelvic pain - Likely due to history of chemoradiation therapy - Oxycodone, Tylenol, and IV Dilaudid for breakthrough History of cervical cancer - Stage IIIB SCC of cervix - S/p Chemoradiation, currently in remission -Recent CT 08/02/22 unremarkable for signs of cancer recurrence -Recent Pap smear (07/15) negative for cervical dysplasia, however positive for HPV. For 6 months follow up per Dr. Martin's last note - Port-A-Cath in place Tobacco - For Nicotine patch if patient desires - Smokes 1/2 PPD Anxiety - Declined counseling - Continue Ativan home dose TID PRN Asthma - Not in acute exacerbation Obstructive uropathy s/p Left Nephrostomy tube - Initially placed in 2019. - Last exchanged 11/25/2022 - Left nephrostomy tube exchange completed - Heparin resumed Poor appetite - Nutrition consultation in the morning - Can consider appetite stimulants and supplements - Regular diet + supplement Disposition: IV antibiotics, Blood and urine cultures pending. Digitally Signed by ALANNA SCANLON DO on 01/03/2023 07:57 AM [facility] [id number] Consult note Chief complaint history of anxiety History of present illness 32-year-old female that I saw in consultation October 03, 2022 with a similar presentation. Psychiatry was consulted to evaluate this patient after she made a possible comment of self-harm. Patient was clearly irritable during my assessment when I informed her of the reason that I was asked to see her and she stated I never said I was suicidal. I never said I was goingto hurt myself. As a matter of fact, I told the gentleman that I was not going to hurt myself. I amjust upset because my father told me someone broke into my house. It is a normal reaction to be upset when somebody has broken into your house. I am not going to hurt myself. During my assessment tomark silveira, this patient is at her baseline. She is not manic. She is not psychotic. She adamantly denies suicidal and homicidal thoughts. She states that she does not want a change in her psychiatric medication. She states that she does not want any additional psychiatric medication. Mental status exam at the time of this evaluation, this patient is alert and oriented. Her memory is intact. Her affect is irritable. She is currently not psychotic. She is denying suicidal and homicidal thoughts. Her judgment and insight appear to be intact. Speech is presented in a normal tone aswell as normal pace Diagnostic impression adjustment disorder with mixed features Treatment plan #1 patient is adamantly denying suicidal thoughts #2 there is no indication for inpatient psychiatric treatment #3 there is no indication to change her psychiatric medication #4 patient is currently presenting a low, imminent risk of self-harm therefore, she may be discharged home when she is medically clear #5 patient will follow up with her outpatient behavioral provider #6 please call psychiatry as needed during this hospital stay. Digitally Signed by CLOTILDE SHAY MD on 01/03/2023 11:53 AM [facility] [id number] Note Date of Service 01/03/2023 Chief Complaint flank pain, vaginal pain, decreased urine output Subjective Patient seen and examined. No acute events overnight. Reports nausea, no vomiting. Reports vaginal pain. Objective Vitals and Measurements T: 36.5 C (Oral) TMIN: 36.4 C (Oral) TMAX: 36.7 C (Oral) HR: 60 RR: 16 BP: 100/66 SpO2: 98% Intake and Output 7AM Yesterday to 7AM Today Intake and Output (Last 24 hours) Intake Output Urine Voided 200.00 Urostomy Output: 850.00 Total Summary Total Intake 0.00 Total Output 1050.00 Fluid Balance -1050.00 Physical Exam General: A&Ox3, no apparent distress Resp: clear to auscultation bilaterally CV: normal rate and rhythm Abdomen: Soft, nontender, nonrigid, no peritoneal signs, positive bowel sounds throughout : Left nephrostomy tube in place, dressing clean, dry, intact Pelvis: No signs of active vaginal bleeding Ext: No lower extremity edema. No cyanosis. Negative Homans sign UOP: _ cc/8hr of clear, yellow urine Weight Dosing Weight: 47.7 kg (01/01/23) Medications Medications (18) Active Scheduled: (9) acetaminophen 325 mg Tablet 650 mg 2 tab(s), Oral, q4h docusate sodium 100 mg Capsule 100 mg 1 cap(s), Oral, BID gabapentin 300 mg Capsule 300 mg 1 cap(s), Oral, qHS heparin 5,000 units/mL (1 mL) vial 5,000 unit(s) 1 mL, Subcutaneous, q8h hydromorphone 1 mg/mL (1mL) INJ 1 mg 1 mL, IV Push, q4h Nicoderm patch REMOVAL 1 EA, Miscellaneous, q24h nicotine 7 mg/24 hr ER patch 7 mg 1 patch(es), Transdermal, q24h ondansetron 2 mg/ 1 mL 2 mL INJ 4 mg 2 mL, IV Push, q4h piperacillin-tazobactam PMX 3.375 gram(s) 50 mL, IV Piggyback, q8hr Continuous: (1) NS (0.9% nacl) 1,000 mL 1,000 mL, Intravenous, 75 mL/hr PRN: (8) diphenhydramine 25 mg tablet 25 mg 1 tab(s), Oral, qHS famotidine 20 mg tablet 20 mg 1 tab(s), Oral, BID LORAZEPam 1 mg Tablet 1 mg 1 tab(s), Oral, TID melatonin 3 mg tablet 3 mg 1 tab(s), Oral, qHS oxycodone 5 mg tablet (immediate release) 5 mg 1 tab(s), Oral, q4h oxycodone 5 mg tablet (immediate release) 10 mg 2 tab(s), Oral, q4h pantoprazole 40 mg VIAL 40 mg, IV Push, qDay promethazine 12.5 mg tablet 12.5 mg 1 tab(s), Oral, q6h Lab Results 01/02 05:14 WBC: 6.7 Hgb: 11.6 L Hct: 34.2 Platelet: 320 Neutrophil %: 49.7 L Glucose Level: 87 Sodium Level: 140 Potassium Level: 3.8 BUN: 14.0 Creatinine Lvl (s): 0.98 Imaging Results and Diagnostics IR Neph Cath-Neph Ureter w/Guide Right Result Date: January 02, 2023 Verified By: VIRAL MANUEL MD CLINICAL STATEMENT: IMPRESSION: Successful left percutaneous nephroureteral catheter exchange. CT Urogram Result Date: January 01, 2023 Verified By: TRICIA MCCALL MD CLINICAL STATEMENT: IMPRESSION: 1. Expected placement of left nephro-ureteric stent.2. No evidence of right urinary tract obstruction. Assessment/Plan Patient is a 32 yo woman with a history of stage IIIB cervical cancer s/p chemoradiationiin remission, has a history obstructive uropathy with left nephrostomy tube in place; admitted for pelvic pain and complicated urinary tract infection. >> Admit to regular floor >> Condition: Stable >> Vitals: q4hr >> Activity: Ambulate, up to chair >> Diet: NPO for procedure >> IVF: NS 75 cc/hr >> DVT Prophylaxis: SCDs, Heparin held for procedure Complicated Urinary Tract Infection - Directly admitted for pelvic pain, flank pain, and UTI - Left Nephrostomy tube in place since 2019. Last IR nephrostomy tube exchange 08/14/2022 - Recurrent history of complicated urinary tract infection with ESBL / E. coli / Enterococcus / Klebsiella pneumonia - Urinalysis tests from L nephrostomy tube and clean catch both positive for nitrites, await cultures and sensitivities - Continue Zosyn - Overall kidney function stable, Cr 0.98 - IVF NS 75cc/hr - Strict I's and O's - Voided 100cc overnight, 600cc L Nephrostomy output - 01/01 Urogram: No evidence of right urinary tract obstruction. - Nephrostomy tube exchange today - Blood culture pending Pelvic pain - Likely due to history of chemoradiation therapy - Oxycodone, Tylenol, and IV Dilaudid for breakthrough History of cervical cancer - Stage IIIB SCC of cervix - S/p Chemoradiation, currently in remission -Recent CT 08/02/22 unremarkable for signs of cancer recurrence -Recent Pap smear (07/15) negative for cervical dysplasia, however positive for HPV. For 6 months follow up per Dr. Martin's last note - Port-A-Cath in place Tobacco - For Nicotine patch if patient desires - Smokes 1/2 PPD Anxiety - Declined counseling - Continue Ativan home dose TID PRN Asthma - Not in acute exacerbation Obstructive uropathy s/p Left Nephrostomy tube - Initially placed in 2019. - Last exchanged 11/25/2022 - Left nephrostomy tube exchange completed - Heparin resumed Poor appetite - Nutrition consultation in the morning - Can consider appetite stimulants and supplements - Regular diet + supplement Disposition: IV antibiotics, Blood and urine cultures pending. Digitally Signed by ALANNA SCANLON DO on 01/03/2023 07:57 AM [facility] [id number] Note IR Procedure Record Summary Primary Physician: IVRAL MANUEL MD Finalized Date/Time: 01/03/23 09:23:36 Pt. Name: LALY NAVAS./Sex: 1990 Female Med Rec #: [id number] Physician: FILP MARTIN MD Financial #: [id number] Pt. Type: I Room/Bed: [facility]/ Admit/Disch: 01/01/23 16:28:38 - Institution: Allergies identified in patient's electronic medical record at time of printing on 01/03/23 Entry 1 Entry 2 Substance Oranges penicillin Reaction Type Allergy Allergy Last Modified By: JAMAL Scott RN Evan 02/03/21 10/04/22 08:25:47 17:13:24 Case Attendance- IR Entry 1 Entry 2 Entry 3 Case Attendee VIRAL MANUEL MD, Systems Integrator JAMAL Beasley Role Performed Primary Surgeon Scrub Technologist Procedure Nurse Details Time In 01/02/23 15:14:00 01/02/23 15:14:00 01/02/23 15:14:00 Time Out 01/02/23 15:44:00 01/02/23 15:55:00 01/02/23 15:55:00 Procedure/Preference IR Neph Cath-Neph IR Neph Cath-Neph IR Neph Cath-Neph Card Ureter W/Guide Left SN Ureter W/Guide Left SN Ureter W/Guide Left SN Last Modified By: Ana Tipton Holly L Mallory, Holly L 01/03/23 09:19:37 01/03/23 09:19:37 01/03/23 09:19:37 Entry 4 Case Attendee Patti Ching Systems Integrator Role Performed Circulating Technologist Details Time In 01/02/23 15:14:00 Time Out 01/02/23 15:55:00 Procedure/Preference IR Neph Cath-Neph Card Ureter W/Guide Left SN Last Modified By: Ana Tipton 01/03/23 09:19:37 Radiology Procedures- IR Entry 1 Procedure/Preference IR Neph Cath-Neph Actual Procedure IR Neph Cath-Neph Card Ureter W/Guide Left SN Ureter W/Guide Left SN Primary Procedure Yes Primary Surgeon VIRAL MANUEL MD Anesthesia/Sedation Local, IV Sedation Type Additional Procedure Times Start 01/02/23 15:31:00 Stop 01/02/23 15:44:00 Specialty Service SN Radiology Procedure EBL 1 mL Last Modified By: JAMAL Lindsey 01/02/23 15:44:39 Radiology Procedure Details - IR Entry 1 Radiology Sedation Case Times Sedation Start Time 01/02/23 15:32:00 Sedation Stop Time 01/02/23 15:44:00 Sedation Total Time 12 min Radiology - Fluid/Drainage Radiology Contrast Contrast Used? Yes Dose 10 mL Medication OMNIPAQUE 300 50ML 10/CT Y-530 Radiology Flouroscopy Fluoroscopy Used? Yes Fluoro Dose (mGy) 9 Fluoro Time 1.5 minutes Radiology Local Local Used? No Radiology Procedure Site Site/Location left flank Site Condition No complications Dressing Type Bioclusive 4 X 5, Gauze Technologist Notes 8.5 fr x 24cm sponge 4 X 4 neph-ureteral change Last Modified By: Ana Tipton 01/03/23 09:21:19 General Case Data - IR Entry 1 Case Information Room AH IR 17 Case Level IR Level 2 Wound Class None Specialty SN Radiology Procedure ASA Class None Diagnosis Preop Diagnosis cervical cancer Postop Same As Preop Yes Postop Diagnosis cervical cancer Last Modified By: Patti Ching Systems Integrator 01/02/23 15:28:59 Medication Administration- IR Entry 1 Entry 2 Entry 3 Medication Versed Dilaudid Versed Time Administered 01/02/23 15:32:00 01/02/23 15:32:00 01/02/23 15:37:00 Route of Admin IV Push IV Push IV Push Dose 1 mg 1 mg 1 mg Volume VORB * *Verbal Order Read Back (VORB) is required for NON- PHYSICIAN administration of medications. Administered by No No No Physician? Administered by: JAMAL Lindsey RN Deborah E Patton, RN Deborah E Verbal Order Read VIRAL MANUEL MD, JAMES MD BUCHINO, JAMES MD Back from: Last Modified By: JAMAL Lindsey RN Deborah E Patton, RN Deborah E 01/02/23 15:44:06 01/02/23 15:44:06 01/02/23 15:44:06 Entry 4 Medication Dilaudid Time Administered 01/02/23 15:38:00 Route of Admin IV Push Dose 1 mg Volume VORB * *Verbal Order Read Back (VORB) is required for NON- PHYSICIAN administration of medications. Administered by No Physician? Administered by: JAMAL Lindsey Verbal Order Read VIRAL MANUEL MD Back from: Last Modified By: JAMAL Lindsey 01/02/23 15:44:06 Procedure Case Times- IR Entry 1 Patient In Procedure Patient In OR 01/02/23 15:14:00 Patient Out of OR 01/02/23 15:55:00 Procedure Start/Stop Procedure Start Time 01/02/23 15:31:00 Procedure Stop Time 01/02/23 15:44:00 Last Modified By: Ana Titpon 01/03/23 09:19:46 Immediate Post Procedure Note - IR Entry 1 Immediate Post Yes Findings left neph-ureteral cath Procedure Note change displayed for Physician to review Closure Technique Closure Technique Other than Primary Last Modified By: Patti Ching 01/02/23 15:28:35 Immediate Post Procedure Note - IR Signed By: VIRAL MANUEL MD 01/02/23 15:46 Allergy Information- IR Entry 1 Allergies Reviewed? Yes Allergies Reviewed Patient With Last Modified By: Patti Ching 01/02/23 15:25:06 Radiology Protocols/Time Out- IR Entry 1 Preprocedure Clinician Verifies Correct patient ID When Clinically Confirmation of correct using name & date Indicated side(s) and site(s), or MRN, Accurate Correct diagnostic and procedure, complete radiology tests Informed Consent available, Required blood products, implants, devices and/or special equipment available OR/Procedure Room/Bedside Time 01/02/23 15:31:00 Clinician Verifies Correct patient identity including EMR & records using name and date or medical record number, Accurate procedure consent form, Correct patient position, Necessary equipment is available, Anticipated non-routine events with surgical team (case duration, estimated blood loss, patient specific concerns)., Parada patient factors for recovery and management identified with surgical team. When Applicable Confirmation correct Team Members VIRAL MANUEL MD, side and site marked, Present for Time Out Sam Junior Relevant images and ACésar RN Deborah results are properly E, Patti Ching labeled and Systems Integrator appropriately displayed, Alcohol based prep dry Instrument Sterility Team Members Sam Junior Verifying Sterility Procedure IR Neph Cath-Neph Ureter W/Guide Left SN Last Modified By: JAMAL Lindsey E 01/02/23 15:42:25 Skin Prep- IR Entry 1 Procedure IR Neph Cath-Neph Ureter W/Guide Left SN Skin Prep Prep Area Flank Side Left By Sam Junior Prep Agents Chloraprep Hair Removal Method N/A Last Modified By: Patti Ching Systems Integrator 01/02/23 15:28:03 Patient Positioning- IR Entry 1 Procedure IR Neph Cath-Neph Body Position OP Prone Ureter W/Guide Left SN Feet Uncrossed? Yes Pressure Points Yes Checked Last Modified By: Patti Ching Systems Integrator 01/02/23 15:28:11 Radiology Procedure Plan - IR Entry 1 Radiology - Nursing Care Plan Outcome Statement The patient Outcome Statement The patient receives demonstrates knowledge Cont. appropriate of the expected medication(s), safely responses to the administered during the operative/invasive perioperative/invasive procedure., The period., The patient is patient's value system, free from signs and lifestyle, ethnicity, symptoms of injury and culture are caused by extraneous considered, respected, objects (equipment, and incorporated in the instrumentation, perioperative plan of sponges, or sharps). care., The patient is free from signs and symptoms of infection. Radiology - Action Plan Outcomes Met? Yes Mottler Operator JAMAL Lindsey Completing Procedure Plan Last Modified By: Patti Ching Systems Integrator 01/02/23 15:28:48 Case Comments Had to remove Isiah, RN, Techs and patient from room using procedure stop time. Then Edit rad procedure details Fluoro MGY and Total time which I got from IR Equipment/Techs notes so that the document would be complete then finalized it so charges could drop and report could flow [facility]- R(CV) Rock Room Worker 01-03-2023 Finalized By: Ana Tipton Document Signatures Signed By: Ana Tipton 01/03/23 09:23 [facility] [id number] Note Date of Service 01/03/2023 Chief Complaint flank pain, vaginal pain, decreased urine output Subjective Patient seen and examined. No acute events overnight. Reports nausea, no vomiting. Reports vaginal pain. Objective Vitals and Measurements T: 36.5 C (Oral) TMIN: 36.4 C (Oral) TMAX: 36.7 C (Oral) HR: 60 RR: 16 BP: 100/66 SpO2: 98% Intake and Output 7AM Yesterday to 7AM Today Intake and Output (Last 24 hours) Intake Output Urine Voided 200.00 Urostomy Output: 850.00 Total Summary Total Intake 0.00 Total Output 1050.00 Fluid Balance -1050.00 Physical Exam General: A&Ox3, no apparent distress Resp: clear to auscultation bilaterally CV: normal rate and rhythm Abdomen: Soft, nontender, nonrigid, no peritoneal signs, positive bowel sounds throughout : Left nephrostomy tube in place, dressing clean, dry, intact Pelvis: No signs of active vaginal bleeding Ext: No lower extremity edema. No cyanosis. Negative Homans sign UOP: _ cc/8hr of clear, yellow urine Weight Dosing Weight: 47.7 kg (01/01/23) Medications Medications (18) Active Scheduled: (9) acetaminophen 325 mg Tablet 650 mg 2 tab(s), Oral, q4h docusate sodium 100 mg Capsule 100 mg 1 cap(s), Oral, BID gabapentin 300 mg Capsule 300 mg 1 cap(s), Oral, qHS heparin 5,000 units/mL (1 mL) vial 5,000 unit(s) 1 mL, Subcutaneous, q8h hydromorphone 1 mg/mL (1mL) INJ 1 mg 1 mL, IV Push, q4h Nicoderm patch REMOVAL 1 EA, Miscellaneous, q24h nicotine 7 mg/24 hr ER patch 7 mg 1 patch(es), Transdermal, q24h ondansetron 2 mg/ 1 mL 2 mL INJ 4 mg 2 mL, IV Push, q4h piperacillin-tazobactam PMX 3.375 gram(s) 50 mL, IV Piggyback, q8hr Continuous: (1) NS (0.9% nacl) 1,000 mL 1,000 mL, Intravenous, 75 mL/hr PRN: (8) diphenhydramine 25 mg tablet 25 mg 1 tab(s), Oral, qHS famotidine 20 mg tablet 20 mg 1 tab(s), Oral, BID LORAZEPam 1 mg Tablet 1 mg 1 tab(s), Oral, TID melatonin 3 mg tablet 3 mg 1 tab(s), Oral, qHS oxycodone 5 mg tablet (immediate release) 5 mg 1 tab(s), Oral, q4h oxycodone 5 mg tablet (immediate release) 10 mg 2 tab(s), Oral, q4h pantoprazole 40 mg VIAL 40 mg, IV Push, qDay promethazine 12.5 mg tablet 12.5 mg 1 tab(s), Oral, q6h Lab Results 01/02 05:14 WBC: 6.7 Hgb: 11.6 L Hct: 34.2 Platelet: 320 Neutrophil %: 49.7 L Glucose Level: 87 Sodium Level: 140 Potassium Level: 3.8 BUN: 14.0 Creatinine Lvl (s): 0.98 Imaging Results and Diagnostics IR Neph Cath-Neph Ureter w/Guide Right Result Date: January 02, 2023 Verified By: VIRAL MANUEL MD CLINICAL STATEMENT: IMPRESSION: Successful left percutaneous nephroureteral catheter exchange. CT Urogram Result Date: January 01, 2023 Verified By: TRICIA MCCALL MD CLINICAL STATEMENT: IMPRESSION: 1. Expected placement of left nephro-ureteric stent.2. No evidence of right urinary tract obstruction. Assessment/Plan Patient is a 32 yo woman with a history of stage IIIB cervical cancer s/p chemoradiationiin remission, has a history obstructive uropathy with left nephrostomy tube in place; admitted for pelvic pain and complicated urinary tract infection. >> Admit to regular floor >> Condition: Stable >> Vitals: q4hr >> Activity: Ambulate, up to chair >> Diet: NPO for procedure >> IVF: NS 75 cc/hr >> DVT Prophylaxis: SCDs, Heparin held for procedure Complicated Urinary Tract Infection - Directly admitted for pelvic pain, flank pain, and UTI - Left Nephrostomy tube in place since 2019. Last IR nephrostomy tube exchange 08/14/2022 - Recurrent history of complicated urinary tract infection with ESBL / E. coli / Enterococcus / Klebsiella pneumonia - Urinalysis tests from L nephrostomy tube and clean catch both positive for nitrites, await cultures and sensitivities - Continue Zosyn - Overall kidney function stable, Cr 0.98 - IVF NS 75cc/hr - Strict I's and O's - Voided 100cc overnight, 600cc L Nephrostomy output - 01/01 Urogram: No evidence of right urinary tract obstruction. - Nephrostomy tube exchange today - Blood culture pending Pelvic pain - Likely due to history of chemoradiation therapy - Oxycodone, Tylenol, and IV Dilaudid for breakthrough History of cervical cancer - Stage IIIB SCC of cervix - S/p Chemoradiation, currently in remission -Recent CT 08/02/22 unremarkable for signs of cancer recurrence -Recent Pap smear (07/15) negative for cervical dysplasia, however positive for HPV. For 6 months follow up per Dr. Martin's last note - Port-A-Cath in place Tobacco - For Nicotine patch if patient desires - Smokes 1/2 PPD Anxiety - Declined counseling - Continue Ativan home dose TID PRN Asthma - Not in acute exacerbation Obstructive uropathy s/p Left Nephrostomy tube - Initially placed in 2019. - Last exchanged 11/25/2022 - Left nephrostomy tube exchange completed - Heparin resumed Poor appetite - Nutrition consultation in the morning - Can consider appetite stimulants and supplements - Regular diet + supplement Disposition: IV antibiotics, Blood and urine cultures pending. Digitally Signed by ALANNA SCANLON DO on 01/03/2023 07:57 AM [id number] Note ORIGINAL PROCEDURE: Nephrostogram with left percutaneous nephroureteral catheter exchange performed on 01/02/2023. INDICATION: Suspect left kidney infection, bloody output COMPARISON: CT Abdomen/Pelvis dated 01/01/2023. TECHNIQUE/FINDINGS: The procedure was performed in the Fluoroscopy Suite with the patient in the prone position following a Time Out. The back and existing left 8-F percutaneous nephroureteral catheter were prepped and draped in the usual sterile fashion. A fluoroscopic motion picture set worker image was obtained demonstrating the expected position of the existing nephroureteral catheter. Using fluoroscopic guidance, a 0.035 inch guidewire was advanced through the existing catheter and coiled within the bladder. The catheter was removed. Over the guidewire, a new 24 cm 8-F nephroureteral catheter was placed into appropriate position. A fluoroscopic image was obtained following catheter exchange demonstrating appropriate position with the proximal pigtail in the renal pelvis and the distal pigtail within the bladder. Contrast injection demonstrated opacification of the renal pelvis with prompt drainage into the urinary bladder. The catheter was then attached to bag drainage, secured, and dressed in the usual fashion. There were no immediate complications. The patient tolerated the procedure well. Total Fluoroscopy Time: 1.5 minutes. Reference Air Kerma (RAH): 9 mGy. Intra-Service Time (Moderate Sedation): 15 minutes. Patient Monitoring: I personally supervised and directed an independent trained observer who assisted in monitoring the patient's level of consciousness and physiological status throughout the procedure. IMPRESSION: Successful left percutaneous nephroureteral catheter exchange. Interpreted by: Viral Manuel MD Preliminary Report By: Viral Manuel MD Electronically signed By Viral Manuel MD Dictated Date: 01/03/2023 12:39:25 AM Prelim Date: 01/03/2023 12:42:41 AM Sign Date: 01/03/2023 12:42:41 AM Ordering Provider: [facility]03-02-2023 Note Date of Service 01/02/2023 Chief Complaint flank pain, vaginal pain, decreased urine output Subjective Patient seen and examined. No acute events overnight. Reports was able to void overnight. Pain wellcontrolled. +BM. Denies fevers, chills, CP, SOB, N/V/D. Objective Vitals and Measurements T: 36.5 C (Oral) TMIN: 36.4 C (Oral) TMAX: 36.6 C (Oral) HR: 73 RR: 16 BP: 96/63 SpO2: 97% HT: 167.6 cm WT: 47.7 kg BMI: 16.98 Intake and Output 7AM Yesterday to 7AM Today Intake and Output (Last 24 hours) Intake Administration Information 233.75 Output Urine Voided 100.00 Urostomy Output: 600.00 Urine Count 3.00 Total Summary Total Intake 233.75 Total Output 700.00 Fluid Balance -466.25 Physical Exam GENERAL: Patient lying in bed, NAD EYES: No conjunctivitis, PERRLA ENT/NECK: oral mucosa normal PULMONARY: Converses easily, no accessory muscle use ABDOMEN: Soft, Non-Tender, Non-distended. +BS. GENITOURINARY: not examined NEUROLOGIC: Normal sensation SKIN: No rashes, warm Weight Dosing Weight: 47.7 kg (01/01/23) Medications Medications (17) Active Scheduled: (6) acetaminophen 325 mg Tablet 650 mg 2 tab(s), Oral, q4h docusate sodium 100 mg Capsule 100 mg 1 cap(s), Oral, BID gabapentin 300 mg Capsule 300 mg 1 cap(s), Oral, qHS heparin 5,000 units/mL (1 mL) vial 5,000 unit(s) 1 mL, Subcutaneous, q8h ondansetron 2 mg/ 1 mL 2 mL INJ 4 mg 2 mL, IV Push, q4h piperacillin-tazobactam PMX 3.375 gram(s) 50 mL, IV Piggyback, q8hr Continuous: (1) NS (0.9% nacl) 1,000 mL 1,000 mL, Intravenous, 75 mL/hr PRN: (10) diphenhydramine 25 mg tablet 25 mg 1 tab(s), Oral, qHS famotidine 20 mg tablet 20 mg 1 tab(s), Oral, BID HYDROmorphone 0.5 mg/0.5 mL PF syringe 0.5 mg 0.5 mL, IV Push, q2h hydromorphone 1 mg/mL (1mL) INJ 1 mg 1 mL, IV Push, q2h LORAZEPam 1 mg Tablet 1 mg 1 tab(s), Oral, TID melatonin 3 mg tablet 3 mg 1 tab(s), Oral, qHS oxycodone 5 mg tablet (immediate release) 5 mg 1 tab(s), Oral, q4h oxycodone 5 mg tablet (immediate release) 10 mg 2 tab(s), Oral, q4h pantoprazole 40 mg VIAL 40 mg, IV Push, qDay promethazine 12.5 mg tablet 12.5 mg 1 tab(s), Oral, q6h Lab Results Labs (Last four charted values) WBC 6.7 (JAN 02) Hgb L 11.6 (JAN 02) Hct 34.2 (JAN 02) Plt 320 (JAN 02) Na 140 (JAN 02) K 3.8 (JAN 02) CO2 27 (JAN 02) Cl H 111 (JAN 02) Cr 0.98 (JAN 02) BUN 14.0 (JAN 02) Glucose 87 (JAN 02) Mg 1.9 (JAN 02) Phos 4.8 (JAN 02) Ca 9.0 (JAN 02) WBC: 6.7 10^3/mcL (01/02/23 05:14:00) RBC: 3.49 10^6/mcL Low (01/02/23 05:14:00) Hgb: 11.6 G/dL Low (01/02/23 05:14:00) Hct: 34.2 % (01/02/23 05:14:00) MCV: 98.2 fL (01/02/23 05:14:00) MCH: 33.2 pg High (01/02/23 05:14:00) MCHC: 33.8 G/dL (01/02/23 05:14:00) RDW: 14.4 % (01/02/23 05:14:00) Platelet: 320 10^3/mcL (01/02/23 05:14:00) MPV: 7.4 fL (01/02/23 05:14:00) Neutrophil %: 49.7 % Low (01/02/23 05:14:00) Lymphocyte %: 33.3 % (01/02/23 05:14:00) Monocyte %: 8.5 % (01/02/23 05:14:00) Eosinophil %: 7.2 % High (01/02/23 05:14:00) Basophil %: 1.3 % (01/02/23 05:14:00) Neutrophil, Absolute: 3.3 10^3/mcL (01/02/23 05:14:00) Lymphocyte, Absolute: 2.2 10^3/mcL (01/02/23 05:14:00) Monocyte, Absolute: 0.6 10^3/mcL (01/02/23 05:14:00) Eosinophil, Absolute: 0.5 10^3/mcL (01/02/23 05:14:00) Basophil, Absolute: 0.1 10^3/mcL (01/02/23 05:14:00) UA Specimen Type: Catheter (01/01/23 20:13:00) UA Color: Yellow (01/01/23 20:13:00) UA Appear: Clear (01/01/23 20:13:00) UA Spec Grav: 1.020 (01/01/23 20:13:) UA Glucose: Negative. (01/01/23 20:13:00) UA Bili: Negative. (01/01/23 20:13:00) UA Ketones: Negative.1 (01/01/23 20:13:00) UA Blood: Moderate Abnormal (01/01/23 20:13:00) UA pH: 7.5 (01/01/23 20:13:00) UA Protein: Trace (01/01/23 20:13:00) UA Urobilinogen: 0.2 (01/01/23 20:13:00) UA Nitrite: Positive.1 Abnormal (01/01/23 20:13:00) UA Leuk Est: Moderate Abnormal (01/01/23 20:13:00) UA RBC: 5-10 Abnormal (01/01/23 20:13:00) UA WBC: 5-10 Abnormal (01/01/23 20:13:00) UA Squam Epithelial: 0-2 (01/01/23 20:13:00) UA Mucous: Trace (01/01/23 20:13:00) UA Amorphus: 1+ (01/01/23 20:13:00) UA Bacteria: 2+ Abnormal (01/01/23 20:13:00) UA CA Ox Crystal: Trace (01/01/23 19:59:00) UA Trip Rai Crystals: 3+ (01/01/23 13:18:00) UA Glitter cells: 0-2 Abnormal (01/01/23 20:13:00) UA Crenated RBCs: 5-10 Abnormal (01/01/23 20:13:00) Glucose Level: 87 mg/dL (01/02/23 05:14:00) Sodium Level: 140 mEq/L (01/02/23 05:14:00) Potassium Level: 3.8 mEq/L (01/02/23 05:14:00) Chloride: 111 mEq/L High (01/02/23 05:14:00) CO2: 27 mEq/L (01/02/23 05:14:00) Electrolyte Balance: 2 mEq/L Low (01/02/23 05:14:00) BUN: 14 mg/dL (01/02/23 05:14:00) Creatinine Lvl (s): 0.98 mg/dL (01/02/23 05:14:00) BUN/Creatinine Ratio: 14.3 ratio (01/02/23 05:14:00) Calcium Lvl: 9 mg/dL (01/02/23 05:14:00) Magnesium Lvl: 1.9 mg/dL (01/02/23 05:14:00) Phosphorus: 4.8 mg/dL (01/02/23 05:14:00) Total Protein: 5.2 G/dL Low (01/02/23 05:14:00) Albumin Level: 2.8 G/dL Low (01/02/23 05:14:00) Globulin: 2.4 G/dL (01/02/23 05:14:00) A/G Ratio: 1.2 ratio (01/02/23 05:14:00) Bili Total: 0.2 mg/dL (01/02/23 05:14:00) Bili Direct: <0.1 (01/01/23 13:18:00) Bili Indirect: Unable to Calculate (01/01/23 13:18:00) Alk Phos: 68 U/L (01/02/23 05:14:00) AST/SGOT: 14 U/L (01/02/23 05:14:00) ALT/SGPT: 8 U/L Low (01/02/23 05:14:00) Iron: 35 mcg/dL Low (01/01/23 13:18:00) TIBC: 288 mcg/dL (01/01/23 13:18:00) Iron Sat: 12 % (01/01/23 13:18:00) GFR Non-: >60 (01/02/23 05:14:00) GFR : >60 (01/02/23 05:14:00) Ferritin: 48 ng/mL (01/01/23 13:18:00) Folate: 9.92 ng/mL (01/01/23 13:18:00) Vit. D 25-Hydroxy: 18.6 ng/mL (01/01/23 13:18:00) Vitamin B12 Lvl: 301 pg/mL (01/01/23 13:18:00) U Creatinine: 194.8 mg/dL (01/01/23 13:18:00) U Protein: 450.4 mg/dL (01/01/23 13:18:00) U Ratio Prot/Creat: 2.3 ratio (01/01/23 13:18:00) Imaging Results and Diagnostics CT Urogram Result Date: January 01, 2023 Verified By: TRICIA MCCALL MD CLINICAL STATEMENT: IMPRESSION: 1. Expected placement of left nephro-ureteric stent.2. No evidence of right urinary tract obstruction. Assessment/Plan Patient is a 32 yo woman with a history of stage IIIB cervical cancer s/p chemoradiationiin remission, has a history obstructive uropathy with left nephrostomy tube in place; admitted for pelvic pain and complicated urinary tract infection. >> Admit to regular floor >> Condition: Stable >> Vitals: q4hr >> Activity: Ambulate, up to chair >> Diet: NPO for procedure >> IVF: NS 75 cc/hr >> DVT Prophylaxis: SCDs, Heparin held for procedure Complicated Urinary Tract Infection - Directly admitted for pelvic pain, flank pain, and UTI - Left Nephrostomy tube in place since 2019. Last IR nephrostomy tube exchange 08/14/2022 - Recurrent history of complicated urinary tract infection with ESBL / E. coli / Enterococcus / Klebsiella pneumonia - Urinalysis tests from L nephrostomy tube and clean catch both positive for nitrites, await cultures and sensitivities - Continue Zosyn - Overall kidney function stable, Cr 0.98 - IVF NS 75cc/hr - Strict I's and O's - Voided 100cc overnight, 600cc L Nephrostomy output - 01/01 Urogram: No evidence of right urinary tract obstruction. - Nephrostomy tube exchange today - Blood culture pending Pelvic pain - Likely due to history of chemoradiation therapy - Oxycodone, Tylenol, and IV Dilaudid for breakthrough History of cervical cancer - Stage IIIB SCC of cervix - S/p Chemoradiation, currently in remission -Recent CT 08/02/22 unremarkable for signs of cancer recurrence -Recent Pap smear (07/15) negative for cervical dysplasia, however positive for HPV. For 6 months follow up per Dr. Martin's last note - Port-A-Cath in place Tobacco - For Nicotine patch if patient desires - Smokes 1/2 PPD Anxiety - Declined counseling - Continue Ativan home dose TID PRN Asthma - Not in acute exacerbation Obstructive uropathy s/p Left Nephrostomy tube - Initially placed in 2019. - Last exchanged 11/25/2022 - Left nephrostomy tube exchange ordered - Heparin held, NPO for procedure Poor appetite - Nutrition consultation in the morning - Can consider appetite stimulants and supplements - NPO at midnight for procedure Disposition: IV antibiotics, Blood and urine cultures pending. Plan for IR nephrostomy tube exchange. Digitally Signed by ALANNA SCANLON DO on 01/02/2023 07:57 AM [facility] [id number] Note ORIGINAL PROCEDURE: Nephrostogram with left percutaneous nephroureteral catheter exchange performed on 01/02/2023. INDICATION: Suspect left kidney infection, bloody output COMPARISON: CT Abdomen/Pelvis dated 01/01/2023. TECHNIQUE/FINDINGS: The procedure was performed in the Fluoroscopy Suite with the patient in the prone position following a Time Out. The back and existing left 8-F percutaneous nephroureteral catheter were prepped and draped in the usual sterile fashion. A fluoroscopic motion picture set worker image was obtained demonstrating the expected position of the existing nephroureteral catheter. Using fluoroscopic guidance, a 0.035 inch guidewire was advanced through the existing catheter and coiled within the bladder. The catheter was removed. Over the guidewire, a new 24 cm 8-F nephroureteral catheter was placed into appropriate position. A fluoroscopic image was obtained following catheter exchange demonstrating appropriate position with the proximal pigtail in the renal pelvis and the distal pigtail within the bladder. Contrast injection demonstrated opacification of the renal pelvis with prompt drainage into the urinary bladder. The catheter was then attached to bag drainage, secured, and dressed in the usual fashion. There were no immediate complications. The patient tolerated the procedure well. Total Fluoroscopy Time: 1.5 minutes. Reference Air Kerma (RAH): 9 mGy. Intra-Service Time (Moderate Sedation): 15 minutes. Patient Monitoring: I personally supervised and directed an independent trained observer who assisted in monitoring the patient's level of consciousness and physiological status throughout the procedure. IMPRESSION: Successful left percutaneous nephroureteral catheter exchange. Interpreted by: Viral Manuel MD Preliminary Report By: Viral Manuel MD Electronically signed By Viral Manuel MD Dictated Date: 01/03/2023 12:39:25 AM Prelim Date: 01/03/2023 12:42:41 AM Sign Date: 01/03/2023 12:42:41 AM Ordering Provider: ALANNA [facility]03-02-2023 Note System generated consult secondary to documented left nephrostomy tube. System intact with Band-Aidover insertion site. Patient states plan is for an exchange today. No needs at this time. Digitally Signed by JAMAL Bach February on 01/02/2023 11:29 AM [facility] [id number] Note Date of Service 01/02/2023 Chief Complaint flank pain, vaginal pain, decreased urine output Subjective Patient seen and examined. No acute events overnight. Reports was able to void overnight. Pain wellcontrolled. +BM. Denies fevers, chills, CP, SOB, N/V/D. Objective Vitals and Measurements T: 36.5 C (Oral) TMIN: 36.4 C (Oral) TMAX: 36.6 C (Oral) HR: 73 RR: 16 BP: 96/63 SpO2: 97% HT: 167.6 cm WT: 47.7 kg BMI: 16.98 Intake and Output 7AM Yesterday to 7AM Today Intake and Output (Last 24 hours) Intake Administration Information 233.75 Output Urine Voided 100.00 Urostomy Output: 600.00 Urine Count 3.00 Total Summary Total Intake 233.75 Total Output 700.00 Fluid Balance -466.25 Physical Exam GENERAL: Patient lying in bed, NAD EYES: No conjunctivitis, PERRLA ENT/NECK: oral mucosa normal PULMONARY: Converses easily, no accessory muscle use ABDOMEN: Soft, Non-Tender, Non-distended. +BS. GENITOURINARY: not examined NEUROLOGIC: Normal sensation SKIN: No rashes, warm Weight Dosing Weight: 47.7 kg (01/01/23) Medications Medications (17) Active Scheduled: (6) acetaminophen 325 mg Tablet 650 mg 2 tab(s), Oral, q4h docusate sodium 100 mg Capsule 100 mg 1 cap(s), Oral, BID gabapentin 300 mg Capsule 300 mg 1 cap(s), Oral, qHS heparin 5,000 units/mL (1 mL) vial 5,000 unit(s) 1 mL, Subcutaneous, q8h ondansetron 2 mg/ 1 mL 2 mL INJ 4 mg 2 mL, IV Push, q4h piperacillin-tazobactam PMX 3.375 gram(s) 50 mL, IV Piggyback, q8hr Continuous: (1) NS (0.9% nacl) 1,000 mL 1,000 mL, Intravenous, 75 mL/hr PRN: (10) diphenhydramine 25 mg tablet 25 mg 1 tab(s), Oral, qHS famotidine 20 mg tablet 20 mg 1 tab(s), Oral, BID HYDROmorphone 0.5 mg/0.5 mL PF syringe 0.5 mg 0.5 mL, IV Push, q2h hydromorphone 1 mg/mL (1mL) INJ 1 mg 1 mL, IV Push, q2h LORAZEPam 1 mg Tablet 1 mg 1 tab(s), Oral, TID melatonin 3 mg tablet 3 mg 1 tab(s), Oral, qHS oxycodone 5 mg tablet (immediate release) 5 mg 1 tab(s), Oral, q4h oxycodone 5 mg tablet (immediate release) 10 mg 2 tab(s), Oral, q4h pantoprazole 40 mg VIAL 40 mg, IV Push, qDay promethazine 12.5 mg tablet 12.5 mg 1 tab(s), Oral, q6h Lab Results Labs (Last four charted values) WBC 6.7 (JAN 02) Hgb L 11.6 (JAN 02) Hct 34.2 (JAN 02) Plt 320 (JAN 02) Na 140 (JAN 02) K 3.8 (JAN 02) CO2 27 (JAN 02) Cl H 111 (JAN 02) Cr 0.98 (JAN 02) BUN 14.0 (JAN 02) Glucose 87 (JAN 02) Mg 1.9 (JAN 02) Phos 4.8 (JAN 02) Ca 9.0 (JAN 02) WBC: 6.7 10^3/mcL (01/02/23 05:14:00) RBC: 3.49 10^6/mcL Low (01/02/23 05:14:00) Hgb: 11.6 G/dL Low (01/02/23 05:14:00) Hct: 34.2 % (01/02/23 05:14:00) MCV: 98.2 fL (01/02/23 05:14:00) MCH: 33.2 pg High (01/02/23 05:14:00) MCHC: 33.8 G/dL (01/02/23 05:14:00) RDW: 14.4 % (01/02/23 05:14:00) Platelet: 320 10^3/mcL (01/02/23 05:14:00) MPV: 7.4 fL (01/02/23 05:14:00) Neutrophil %: 49.7 % Low (01/02/23 05:14:00) Lymphocyte %: 33.3 % (01/02/23 05:14:00) Monocyte %: 8.5 % (01/02/23 05:14:00) Eosinophil %: 7.2 % High (01/02/23 05:14:00) Basophil %: 1.3 % (01/02/23 05:14:00) Neutrophil, Absolute: 3.3 10^3/mcL (01/02/23 05:14:00) Lymphocyte, Absolute: 2.2 10^3/mcL (01/02/23 05:14:00) Monocyte, Absolute: 0.6 10^3/mcL (01/02/23 05:14:00) Eosinophil, Absolute: 0.5 10^3/mcL (01/02/23 05:14:00) Basophil, Absolute: 0.1 10^3/mcL (01/02/23 05:14:00) UA Specimen Type: Catheter (01/01/23 20:13:00) UA Color: Yellow (01/01/23 20:13:00) UA Appear: Clear (01/01/23 20:13:00) UA Spec Grav: 1.020 (01/01/23 20:13:00) UA Glucose: Negative. (01/01/23 20:13:00) UA Bili: Negative. (01/01/23 20:13:00) UA Ketones: Negative.1 (01/01/23 20:13:00) UA Blood: Moderate Abnormal (01/01/23 20:13:00) UA pH: 7.5 (01/01/23 20:13:00) UA Protein: Trace (01/01/23 20:13:00) UA Urobilinogen: 0.2 (01/01/23 20:13:00) UA Nitrite: Positive.1 Abnormal (01/01/23 20:13:00) UA Leuk Est: Moderate Abnormal (01/01/23 20:13:00) UA RBC: 5-10 Abnormal (01/01/23 20:13:00) UA WBC: 5-10 Abnormal (01/01/23 20:13:00) UA Squam Epithelial: 0-2 (01/01/23 20:13:00) UA Mucous: Trace (01/01/23 20:13:00) UA Amorphus: 1+ (01/01/23 20:13:00) UA Bacteria: 2+ Abnormal (01/01/23 20:13:00) UA CA Ox Crystal: Trace (01/01/23 19:59:00) UA Trip Rai Crystals: 3+ (01/01/23 13:18:00) UA Glitter cells: 0-2 Abnormal (01/01/23 20:13:00) UA Crenated RBCs: 5-10 Abnormal (01/01/23 20:13:00) Glucose Level: 87 mg/dL (01/02/23 05:14:00) Sodium Level: 140 mEq/L (01/02/23 05:14:00) Potassium Level: 3.8 mEq/L (01/02/23 05:14:00) Chloride: 111 mEq/L High (01/02/23 05:14:00) CO2: 27 mEq/L (01/02/23 05:14:00) Electrolyte Balance: 2 mEq/L Low (01/02/23 05:14:00) BUN: 14 mg/dL (01/02/23 05:14:00) Creatinine Lvl (s): 0.98 mg/dL (01/02/23 05:14:00) BUN/Creatinine Ratio: 14.3 ratio (01/02/23 05:14:00) Calcium Lvl: 9 mg/dL (01/02/23 05:14:00) Magnesium Lvl: 1.9 mg/dL (01/02/23 05:14:00) Phosphorus: 4.8 mg/dL (01/02/23 05:14:00) Total Protein: 5.2 G/dL Low (01/02/23 05:14:00) Albumin Level: 2.8 G/dL Low (01/02/23 05:14:00) Globulin: 2.4 G/dL (01/02/23 05:14:00) A/G Ratio: 1.2 ratio (01/02/23 05:14:00) Bili Total: 0.2 mg/dL (01/02/23 05:14:00) Bili Direct: <0.1 (01/01/23 13:18:00) Bili Indirect: Unable to Calculate (01/01/23 13:18:00) Alk Phos: 68 U/L (01/02/23 05:14:00) AST/SGOT: 14 U/L (01/02/23 05:14:00) ALT/SGPT: 8 U/L Low (01/02/23 05:14:00) Iron: 35 mcg/dL Low (01/01/23 13:18:00) TIBC: 288 mcg/dL (01/01/23 13:18:00) Iron Sat: 12 % (01/01/23 13:18:00) GFR Non-: >60 (01/02/23 05:14:00) GFR : >60 (01/02/23 05:14:00) Ferritin: 48 ng/mL (01/01/23 13:18:00) Folate: 9.92 ng/mL (01/01/23 13:18:00) Vit. D 25-Hydroxy: 18.6 ng/mL (01/01/23 13:18:00) Vitamin B12 Lvl: 301 pg/mL (01/01/23 13:18:00) U Creatinine: 194.8 mg/dL (01/01/23 13:18:00) U Protein: 450.4 mg/dL (01/01/23 13:18:00) U Ratio Prot/Creat: 2.3 ratio (01/01/23 13:18:00) Imaging Results and Diagnostics CT Urogram Result Date: January 01, 2023 Verified By: TRICIA MCCALL MD CLINICAL STATEMENT: IMPRESSION: 1. Expected placement of left nephro-ureteric stent.2. No evidence of right urinary tract obstruction. Assessment/Plan Patient is a 32 yo woman with a history of stage IIIB cervical cancer s/p chemoradiationiin remission, has a history obstructive uropathy with left nephrostomy tube in place; admitted for pelvic pain and complicated urinary tract infection. >> Admit to regular floor >> Condition: Stable >> Vitals: q4hr >> Activity: Ambulate, up to chair >> Diet: NPO for procedure >> IVF: NS 75 cc/hr >> DVT Prophylaxis: SCDs, Heparin held for procedure Complicated Urinary Tract Infection - Directly admitted for pelvic pain, flank pain, and UTI - Left Nephrostomy tube in place since 2019. Last IR nephrostomy tube exchange 08/14/2022 - Recurrent history of complicated urinary tract infection with ESBL / E. coli / Enterococcus / Klebsiella pneumonia - Urinalysis tests from L nephrostomy tube and clean catch both positive for nitrites, await cultures and sensitivities - Continue Zosyn - Overall kidney function stable, Cr 0.98 - IVF NS 75cc/hr - Strict I's and O's - Voided 100cc overnight, 600cc L Nephrostomy output - 01/01 Urogram: No evidence of right urinary tract obstruction. - Nephrostomy tube exchange today - Blood culture pending Pelvic pain - Likely due to history of chemoradiation therapy - Oxycodone, Tylenol, and IV Dilaudid for breakthrough History of cervical cancer - Stage IIIB SCC of cervix - S/p Chemoradiation, currently in remission -Recent CT 08/02/22 unremarkable for signs of cancer recurrence -Recent Pap smear (07/15) negative for cervical dysplasia, however positive for HPV. For 6 months follow up per Dr. Martin's last note - Port-A-Cath in place Tobacco - For Nicotine patch if patient desires - Smokes 1/2 PPD Anxiety - Declined counseling - Continue Ativan home dose TID PRN Asthma - Not in acute exacerbation Obstructive uropathy s/p Left Nephrostomy tube - Initially placed in 2019. - Last exchanged 11/25/2022 - Left nephrostomy tube exchange ordered - Heparin held, NPO for procedure Poor appetite - Nutrition consultation in the morning - Can consider appetite stimulants and supplements - NPO at midnight for procedure Disposition: IV antibiotics, Blood and urine cultures pending. Plan for IR nephrostomy tube exchange. Digitally Signed by ALANNA SCANLON DO on 01/02/2023 07:57 AM [facility] [id number] History and physical note Date of Service 01/01/2023 Chief Complaint flank pain, vaginal pain, decreased urine output History of Present Illness 32 yo Woman with history of Stage IIIB cervical cancer s/p chemoradiation currently in remission, presents as a direct admission from Dr. Martin's clinic for vaginal pain and left flank pain. Patient has a left Nephrostomy tube in place since 2019, it was last exchanged on 11/25/2022. Right kidney drains to bladder and she states that she has not urinated for 5 days. She presented to infusion therapy today. Cr at that time was 0.85. She has a history of complicated UTIs. She did deny gross hematuria from the right kidney. Left kidney with bloody drainage, contained within Ziploc bag. Vaginal pain is worse than usual, worse than it has ever been. Pain is keeping her from eating, dueto poor appetite. She states that when she does eat, she is able to keep food down. She endorses nausea. Vomited last night. She takes Tylenol with Oxycodone at home. She reports that she recently from a 6 year relationship with her boyfriend and that has made everything more difficult. She denies fever, chills, night sweats, intermittent shortness of breath with physical activity, dysuria, lower abdominal pain, visual changes, headache, chest pain, dizziness, vaginal bleeding, vaginal discharge. 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 Menarche age 14. Amenorrheic since initiation of Chemoradiation. Denies mammogram ever. Colonoscopy in 2019. Denies history of STDs. Not sexually active. Family History Mother with breast cancer Sister with cervical cancer Grandmother with cervical cancer Aunts with cervical cancer Cousins with cervical cancer ONCOLOGY HISTORY: - 04/04/2020: CT scan abdomen and pelvis. [facility]. Thickened cervical wall with involvementof the lower uterine segment, highly concerning for malignancy. There is involvement of the left ureter resulting in left hydronephrosis and hydroureter. Mildly enlarged right external iliac lymph node measuring 1.4 x 1.1 x 1.2 cm. - 04/13/2020: CT thorax. No evidence of active malignancy in the thorax. - 04/13/2020: IR nephrostomy tube insertion on the left. - 04/13/2020: MRI of the pelvis with contrast. Large uterine mass with extension to the pelvic fat and possible involvement of the mesorectal fascia. There is a prominent but not pathologically enlarged left pelvic lymph node which could be metastatic. Large cervical mass measuring 4.7 x 5.8 cm. - : Examination under Anesthesia, Cystourethroscopy, Cervical biopsies, Proctoscopy - 04/26/2020 Week #1 Cisplatin 40mg/m2 - 05/03/2020 Week #2 Cisplatin 20mg/m2 - 05/10/2020 Week #3 Cisplatin 20mg/m2 - 05/17/2020 Week #4 Cisplatin 20mg/m2 - 05/24/2020 Week #5 Cisplatin 20mg/m2 - 05/31/2020 Week #6 Cisplatin 20mg/m2 - 08/18/2020: CT urogram. Left percutaneous nephrostomy tube in place. Minimal left upper pole striated nephrogram. This finding is nonspecific and may be seen with inflammation or obstruction. Sincethere is no significant adjacent infiltrative changes within the perinephric fat, this could potentially be indicative of minimal left side obstruction. Improvement of the cervix lesion since the prior exam, diminished in size since prior study. - 12/07/2020 PET/CT no abnormal uptake at the uterine cervix, FDG avid lymphadenopathy or metastatic disease is seen. - 2020 CT abdomen and pelvis decreased left nephrogram with ectasia of the left upper tract and enhancement of the uroepithelium lining is worrisome for obstruction and/or infection following interval ureteral stent removal. - 01/09/2021 MRI of the pelvis treated disease with no significant residual tumor identified on this exam. Mild infiltrative change within the deep pelvic fat is presumably the result of radiation therapy, and attention to follow-up is recommended. Re-demonstration of mildly dilated left ureter and collecting system, compatible of history of pyelonephritis. RADIATION SUMMARY: Dates of treatment: 04/26/2020 - 06/07/2020 Treatment details : Initially the pelvis was treated to a dose of 4500 cGy in 25 fractions using intensity modulated radiation therapy with 6 MV photons. Following this dose the parametrium was boosted an additional 540 cGy in 3 fractions through AP PA quintero with midline block taken her final pelvic tumor dose to 5040 centigray. She was treated with concurrent cisplatin based chemotherapy. The patient then underwent for intracavitary brachii therapy applications with [id number] iridium 192afterloading device utilizing a tandem and ring. 2400 cGy was delivered at 600 cGy per fraction to point A from June 14, 2020 through July 11, 2020. The plan was to deliver 5 brachytherapy applications, however, the patient failed to show for surgery 3 times. Therefore, the decision to foregothe last treatment was made as it had been nearly 3 months since initiating therapy. Course: C1 Pelvis Treatment Site Ref. ID Energy Dose/Fx (cGy) #Fx Total Dose (cGy) Start Date End Date Elapsed Days IMRT SEAM RUBBER Pelvis 6X 180 / 4,500 04/26/2020 06/02/2020 37 3D PM Bst 18X 180 540 06/05/2020 06/07/2020 2 GENETIC TESTING: - Patient had genetic testing sent through [facility]. No reportable somatic or germline pathogenic or actionable mutations were found. Tumor mutational burden was 39th percentile. Microsatellite instability status stable. Somatic variants of unknown significance were found in PRKDC, TRAF3, AGUSTIN, ERBB4, and CXCR4. Variants of unknown significance and germline mutations were found in BRCA2 and RAD51C.DNA mismatch repair protein expression was normal. PD-L1 expression was positive. Review of Systems See HPI for pertinent positives. A full review of systems was conducted and found to be otherwise negative. Physical Exam Vitals and Measurements T: 36.4 C (Oral) HR: 64 RR: 16 BP: 142/98 SpO2: 99% HT: 167.6 cm WT: 47.7 kg BMI: 16.98 Weight Dosing Weight: 47.7 kg (01/01/23) Lab Results WBC: 8.9 10^3/mcL (01/01/23 13:18:00) RBC: 4.16 10^6/mcL (01/01/23 13:18:00) Hgb: 13.4 G/dL (01/01/23 13:18:00) Hct: 40.8 % (01/01/23 13:18:00) MCV: 98 fL (01/01/23 13:18:00) MCH: 32.1 pg (01/01/23 13:18:00) MCHC: 32.8 G/dL (01/01/23 13:18:00) RDW: 14.3 % (01/01/23 13:18:00) Platelet: 396 10^3/mcL (01/01/23 13:18:00) MPV: 7.5 fL (01/01/23 13:18:00) Neutrophil %: 67.5 % (01/01/23 13:18:00) Lymphocyte %: 20.6 % (01/01/23 13:18:00) Monocyte %: 6.3 % (01/01/23 13:18:00) Eosinophil %: 4.2 % (01/01/23 13:18:00) Basophil %: 1.4 % (01/01/23 13:18:00) Neutrophil, Absolute: 6 10^3/mcL (01/01/23 13:18:00) Lymphocyte, Absolute: 1.8 10^3/mcL (01/01/23 13:18:00) Monocyte, Absolute: 0.6 10^3/mcL (01/01/23 13:18:00) Eosinophil, Absolute: 0.4 10^3/mcL (01/01/23 13:18:00) Basophil, Absolute: 0.1 10^3/mcL (01/01/23 13:18:00) UA Specimen Type: Catheter (01/01/23:18:00) UA Color: Red Abnormal (01/01/23 13:18:00) UA Appear: Cloudy Abnormal (01/01/23 13:18:00) UA Spec Grav: >=1.030 Abnormal (01/01/23 13:18:00) UA Glucose: Negative. (01/01/23 13:18:00) UA Bili: Small Abnormal (01/01/23 13:18:00) UA Ketones: Negative.1 (01/01/23 13:18:00) UA Blood: Large Abnormal (01/01/23 13:18:00) UA pH: 7.0 (01/01/23 13:18:00) UA Protein: >=1000 Abnormal (01/01/23 13:18:00) UA Urobilinogen: 1.0 (01/01/23 13:18:00) UA Nitrite: Positive.1 Abnormal (01/01/23 13:18:00) UA Leuk Est: Large Abnormal (01/01/23 13:18:00) UA RBC: LOADED Abnormal (01/01/23 13:18:00) UA WBC: LOADED Abnormal (01/01/23 13:18:00) UA Squam Epithelial: 0-2 (01/01/23 13:18:00) UA Mucous: 2+ (01/01/23 13:18:00) UA Bacteria: 4+ Abnormal (01/01/23 13:18:00) UA CA Ox Crystal: 2+ (01/01/23 13:18:00) UA Trip Rai Crystals: 3+ (01/01/23 13:18:00) Glucose Level: 84 mg/dL (01/01/23 13:18:00) Sodium Level: 139 mEq/L (01/01/23 13:18:00) Potassium Level: 3.8 mEq/L (01/01/23 13:18:00) Chloride: 112 mEq/L High (01/01/23 13:18:00) CO2: 25 mEq/L (01/01/23 13:18:00) Electrolyte Balance: 2 mEq/L Low (01/01/23 13:18:00) BUN: 11 mg/dL (01/01/23 13:18:00) Creatinine Lvl (s): 0.85 mg/dL (01/01/23 13:18:00) BUN/Creatinine Ratio: 12.9 ratio (01/01/23 13:18:00) Calcium Lvl: 9.9 mg/dL (01/01/23 13:18:00) Magnesium Lvl: 1.9 mg/dL (01/01/23 13:18:00) Phosphorus: 3.1 mg/dL (01/01/23:18:00) Total Protein: 6.9 G/dL (01/01/23:18:) Albumin Level: 3.8 G/dL (01/01/23:18:) Globulin: 3.1 G/dL (01/01/23:18) A/G Ratio: 1.2 ratio (01/01/23:18:) Bili Total: 0.2 mg/dL (01/01/23:18:) Bili Direct: <0.1 (01/01/23:18:) Bili Indirect: Unable to Calculate (01/01/23:18:) Alk Phos: 82 U/L (01/01/23:18) AST/SGOT: 14 U/L (01/01/23:18:) ALT/SGPT: <8 Low (01/01/23:18:) Iron: 35 mcg/dL Low (01/01/23:18:) TIBC: 288 mcg/dL (01/01/23:18:) Iron Sat: 12 % (01/01/23:18:) GFR Non-: >60 (01/01/23:18:) GFR : >60 (01/01/23:18:) Ferritin: 48 ng/mL (01/01/23:18:00) Folate: 9.92 ng/mL (01/01/23:18:00) Vit. D 25-Hydroxy: 18.6 ng/mL (01/01/23:18:) Vitamin B12 Lvl: 301 pg/mL (01/01/23:18:00) U Creatinine: 194.8 mg/dL (01/01/23:18:00) U Protein: 450.4 mg/dL (01/01/23:18:) U Ratio Prot/Creat: 2.3 ratio (01/01/23:18:) Assessment/Plan Patient is a 32 yo woman with a history of stage IIIB cervical cancer s/p chemoradiation,has a history obstructive uropathy with left nephrostomy tube in place; admitted for pelvic pain and complicated urinary tract infection. >> Admit to regular floor >> Condition: Stable >> Vitals: q4hr >> Activity: Ambulate, up to chair >> Diet: Regular >> IVF: NS 75 cc/hr >> DVT Prophylaxis: SCDs Complicated Urinary Tract Infection - Directly admitted for pelvic pain, flank pain, and UTI - Left Nephrostomy tube in place since 2019. Last IR nephrostomy tube exchange 08/14/2022 - Recurrent history of complicated urinary tract infection with ESBL / E. coli / Enterococcus / Klebsiella pneumonia - Zosyn started - Urinalysis and urine culture from left nephrostomy tube pending - Urinalysis and straight catheter urine culture from pending - Blood culture pending - Cr 0.85. UPC 2.3. GFR >60 - Strict I's and O's Pelvic pain - Likely due to history of chemoradiation therapy - Oxycodone, Tylenol, and IV Dilaudid for breakthrough History of cervical cancer - Stage IIIB SCC of cervix - S/p Chemoradiation, currently in remission -Recent CT 08/02/22 unremarkable for signs of cancer recurrence -Recent Pap smear (07/15) negative for cervical dysplasia, however positive for HPV. For 6 months follow up per Dr. Martin's last note - Port-A-Cath in place Tobacco - For Nicotine patch if patient desires - Smokes 1/2 PPD Anxiety - Declined counseling - Continue Ativan home dose TID PRN Asthma - Not in acute exacerbation Obstructive uropathy s/p Left Nephrostomy tube - Initially placed in 2019. - Last exchanged 11/25/2022 - CT Urogram ordered - Left nephrostomy tube exchange ordered Poor appetite - Nutrition consultation in the morning - Can consider appetite stimulants and supplements - NPO at midnight for procedure Disposition: Admit patient for management of suspected complicated UTI, initiating IV antibiotics, Blood and urine cultures pending, for Urogram, pain control. Plan for IR nephrostomy tube exchange. Problem List/Past Medical History Ongoing Acute kidney injury Anxiety Asthma Cervical cancer Complicated UTI (urinary tract infection) Decreased appetite Dehydration DVT prophylaxis History of chemotherapy History of radiation therapy Left flank pain Moderate protein-calorie malnutrition Nausea and vomiting Nephrostomy status Obstructive uropathy Port-A-Cath in place Premature menopause Pyelonephritis Historical Cervicitis Chronic kidney disease, stage 3 (moderate) Encounter for antineoplastic chemotherapy History of COVID-19 Hydronephrosis of left kidney Mass of cervix Tinnitus Procedure/Surgical History Nephrostomy with tube drainage: 01/10/21 JJ stent: 11/15/20 Radiation: 06/2020 Cervical biopsy: 2019 Tumor cells, benign: 2002 Cannulation of Portacath Nephrostomy with tube drainage Medications Home Medications (7) Active acetaminophen-oxyCODONE 325 mg-5 mg oral tablet 1 tab(s), Oral, q6hr Ativan 1 mg oral tablet 1 mg = 1 tab(s), PRN, Oral, TID Colace 100 mg oral capsule 100 mg = 1 cap(s), PRN, Oral, BID gabapentin 300 mg oral capsule 300 mg = 1 cap(s), Oral, qHS Normal Saline Flush 0.9% injectable solution 0.09 gram(s) = 10 mL, IR Drain, Daily Tylenol 325 mg oral capsule 650 mg, PRN, Oral, q4h Zofran 4 mg oral tablet 4 mg = 1 tab(s), PRN, Oral, q6h Allergies Oranges penicillin Social History Alcohol - Denies Alcohol Use, 06/13/2020 Use: Current. Type: Beer. Frequency: 1-2 times per week., 12/21/2021 Home/Environment - No Risk, 06/13/2020 Domestic Concerns: None. Living situation: Home/Independent. Safe place to go: Yes. Lives In: Mobile home, 1st floor bedroom, 1st floor bathroom. Current Home Treatments None. Professional Skilled Services or Special Community Resources None. Financial concerns: No. Marital Status: Unmarried., 06/13/2020 Nutrition/Health - No Risk, 06/13/2020 Type of diet: Regular. Appetite Fair. Eating Difficulties None. Caffeine intake amount: 1 can pop per day., 06/13/2020 Sexual Sexually active: Yes. First active at age: 18 Years. Current partners: 1. Number of lifetime partners: 7. Self described orientation: Straight or heterosexual. Other contraceptive use: condoms. History of sexual abuse: No. Gender Identity: Identifies as female., 04/12/2020 Substance Abuse - Denies Substance Abuse, 06/13/2020 Use: Never., 04/12/2020 Tobacco Nicotine Use: 5-9 cigarettes (between 1/4 to 1/2 pack)/day in last 30 days. Type: Cigarettes. Tobacco use per day: 10. Number of years: 10. Started at age: 19 Years. Previous treatment: None. Ready to change: Yes., 04/12/2020 Family History Alcohol abuse: Father. Asthma: Mother. Bladder cancer: Negative: Mother, Father, Sister, Brother, Daughter, Son and Grandparent. Breast cancer: Mother. COPD - Chronic obstructive pulmonary disease: Mother. Cancer: Sister. Diabetes: Grandparent. Heart attack: Mother. Heart disease: Mother. Hypertension: Mother. Kidney stone: Mother. Renal cancer: Negative: Mother, Father, Sister, Brother, Daughter, Son and Grandparent. Stroke: Father and Grandparent. Substance abuse: Father. Immunizations hepatitis B pediatric vaccine: 0 unknown unit (06/16/01) hepatitis B pediatric vaccine: 0 unknown unit (06/21/98) measles/mumps/rubella virus vaccine: 0 unknown unit (06/16/01) Code Status DNR DNI Digitally Signed by ALANNA SCANLON DO on 01/01/2023 06:18 PM [facility] [id number] Note Date of Service 01/02/2023 Chief Complaint flank pain, vaginal pain, decreased urine output Subjective Patient seen and examined. No acute events overnight. Reports was able to void overnight. Pain wellcontrolled. +BM. Denies fevers, chills, CP, SOB, N/V/D. Objective Vitals and Measurements T: 36.5 C (Oral) TMIN: 36.4 C (Oral) TMAX: 36.6 C (Oral) HR: 73 RR: 16 BP: 96/63 SpO2: 97% HT: 167.6 cm WT: 47.7 kg BMI: 16.98 Intake and Output 7AM Yesterday to 7AM Today Intake and Output (Last 24 hours) Intake Administration Information 233.75 Output Urine Voided 100.00 Urostomy Output: 600.00 Urine Count 3.00 Total Summary Total Intake 233.75 Total Output 700.00 Fluid Balance -466.25 Physical Exam GENERAL: Patient lying in bed, NAD EYES: No conjunctivitis, PERRLA ENT/NECK: oral mucosa normal PULMONARY: Converses easily, no accessory muscle use ABDOMEN: Soft, Non-Tender, Non-distended. +BS. GENITOURINARY: not examined NEUROLOGIC: Normal sensation SKIN: No rashes, warm Weight Dosing Weight: 47.7 kg (01/01/23) Medications Medications (17) Active Scheduled: (6) acetaminophen 325 mg Tablet 650 mg 2 tab(s), Oral, q4h docusate sodium 100 mg Capsule 100 mg 1 cap(s), Oral, BID gabapentin 300 mg Capsule 300 mg 1 cap(s), Oral, qHS heparin 5,000 units/mL (1 mL) vial 5,000 unit(s) 1 mL, Subcutaneous, q8h ondansetron 2 mg/ 1 mL 2 mL INJ 4 mg 2 mL, IV Push, q4h piperacillin-tazobactam PMX 3.375 gram(s) 50 mL, IV Piggyback, q8hr Continuous: (1) NS (0.9% nacl) 1,000 mL 1,000 mL, Intravenous, 75 mL/hr PRN: (10) diphenhydramine 25 mg tablet 25 mg 1 tab(s), Oral, qHS famotidine 20 mg tablet 20 mg 1 tab(s), Oral, BID HYDROmorphone 0.5 mg/0.5 mL PF syringe 0.5 mg 0.5 mL, IV Push, q2h hydromorphone 1 mg/mL (1mL) INJ 1 mg 1 mL, IV Push, q2h LORAZEPam 1 mg Tablet 1 mg 1 tab(s), Oral, TID melatonin 3 mg tablet 3 mg 1 tab(s), Oral, qHS oxycodone 5 mg tablet (immediate release) 5 mg 1 tab(s), Oral, q4h oxycodone 5 mg tablet (immediate release) 10 mg 2 tab(s), Oral, q4h pantoprazole 40 mg VIAL 40 mg, IV Push, qDay promethazine 12.5 mg tablet 12.5 mg 1 tab(s), Oral, q6h Lab Results Labs (Last four charted values) WBC 6.7 (JAN 02) Hgb L 11.6 (JAN 02) Hct 34.2 (JAN 02) Plt 320 (JAN 02) Na 140 (JAN 02) K 3.8 (JAN 02) CO2 27 (JAN 02) Cl H 111 (JAN 02) Cr 0.98 (JAN 02) BUN 14.0 (JAN 02) Glucose 87 (JAN 02) Mg 1.9 (JAN 02) Phos 4.8 (JAN 02) Ca 9.0 (JAN 02) WBC: 6.7 10^3/mcL (01/02/23 05:14:00) RBC: 3.49 10^6/mcL Low (01/02/23 05:14:00) Hgb: 11.6 G/dL Low (01/02/23 05:14:00) Hct: 34.2 % (01/02/23 05:14:00) MCV: 98.2 fL (01/02/23 05:14:00) MCH: 33.2 pg High (01/02/23 05:14:00) MCHC: 33.8 G/dL (01/02/23 05:14:00) RDW: 14.4 % (01/02/23 05:14:00) Platelet: 320 10^3/mcL (01/02/23 05:14:00) MPV: 7.4 fL (01/02/23 05:14:00) Neutrophil %: 49.7 % Low (01/02/23 05:14:00) Lymphocyte %: 33.3 % (01/02/23 05:14:00) Monocyte %: 8.5 % (01/02/23 05:14:00) Eosinophil %: 7.2 % High (01/02/23 05:14:00) Basophil %: 1.3 % (01/02/23 05:14:00) Neutrophil, Absolute: 3.3 10^3/mcL (01/02/23 05:14:00) Lymphocyte, Absolute: 2.2 10^3/mcL (01/02/23 05:14:00) Monocyte, Absolute: 0.6 10^3/mcL (01/02/23 05:14:00) Eosinophil, Absolute: 0.5 10^3/mcL (01/02/23 05:14:00) Basophil, Absolute: 0.1 10^3/mcL (01/02/23 05:14:00) UA Specimen Type: Catheter (01/01/23 20:13:00) UA Color: Yellow (01/01/23 20:13:00) UA Appear: Clear (01/01/23 20:13:00) UA Spec Grav: 1.020 (01/01/23 20:13:00) UA Glucose: Negative. (01/01/23 20:13:00) UA Bili: Negative. (01/01/23 20:13:00) UA Ketones: Negative.1 (01/01/23 20:13:00) UA Blood: Moderate Abnormal (01/01/23 20:13:00) UA pH: 7.5 (01/01/23 20:13:00) UA Protein: Trace (01/01/23 20:13:00) UA Urobilinogen: 0.2 (01/01/23 20:13:00) UA Nitrite: Positive.1 Abnormal (01/01/23 20:13:00) UA Leuk Est: Moderate Abnormal (01/01/23 20:13:00) UA RBC: 5-10 Abnormal (01/01/23 20:13:00) UA WBC: 5-10 Abnormal (01/01/23 20:13:00) UA Squam Epithelial: 0-2 (01/01/23 20:13:00) UA Mucous: Trace (01/01/23 20:13:00) UA Amorphus: 1+ (01/01/23 20:13:00) UA Bacteria: 2+ Abnormal (01/01/23 20:13:00) UA CA Ox Crystal: Trace (01/01/23 19:59:00) UA Trip Rai Crystals: 3+ (01/01/23 13:18:00) UA Glitter cells: 0-2 Abnormal (01/01/23 20:13:00) UA Crenated RBCs: 5-10 Abnormal (01/01/23 20:13:00) Glucose Level: 87 mg/dL (01/02/23 05:14:00) Sodium Level: 140 mEq/L (01/02/23 05:14:00) Potassium Level: 3.8 mEq/L (01/02/23 05:14:00) Chloride: 111 mEq/L High (01/02/23 05:14:00) CO2: 27 mEq/L (01/02/23 05:14:00) Electrolyte Balance: 2 mEq/L Low (01/02/23 05:14:00) BUN: 14 mg/dL (01/02/23 05:14:00) Creatinine Lvl (s): 0.98 mg/dL (01/02/23 05:14:00) BUN/Creatinine Ratio: 14.3 ratio (01/02/23 05:14:00) Calcium Lvl: 9 mg/dL (01/02/23 05:14:00) Magnesium Lvl: 1.9 mg/dL (01/02/23 05:14:00) Phosphorus: 4.8 mg/dL (01/02/23 05:14:00) Total Protein: 5.2 G/dL Low (01/02/23 05:14:00) Albumin Level: 2.8 G/dL Low (01/02/23 05:14:00) Globulin: 2.4 G/dL (01/02/23 05:14:00) A/G Ratio: 1.2 ratio (01/02/23 05:14:00) Bili Total: 0.2 mg/dL (01/02/23 05:14:00) Bili Direct: <0.1 (01/01/23 13:18:00) Bili Indirect: Unable to Calculate (01/01/23 13:18:00) Alk Phos: 68 U/L (01/02/23 05:14:00) AST/SGOT: 14 U/L (01/02/23 05:14:00) ALT/SGPT: 8 U/L Low (01/02/23 05:14:00) Iron: 35 mcg/dL Low (01/01/23 13:18:00) TIBC: 288 mcg/dL (01/01/23 13:18:00) Iron Sat: 12 % (01/01/23 13:18:00) GFR Non-: >60 (01/02/23 05:14:00) GFR : >60 (01/02/23 05:14:00) Ferritin: 48 ng/mL (01/01/23 13:18:00) Folate: 9.92 ng/mL (01/01/23 13:18:00) Vit. D 25-Hydroxy: 18.6 ng/mL (01/01/23 13:18:00) Vitamin B12 Lvl: 301 pg/mL (01/01/23 13:18:00) U Creatinine: 194.8 mg/dL (01/01/23 13:18:00) U Protein: 450.4 mg/dL (01/01/23 13:18:00) U Ratio Prot/Creat: 2.3 ratio (01/01/23 13:18:00) Imaging Results and Diagnostics CT Urogram Result Date: January 01, 2023 Verified By: TRICIA MCCALL MD CLINICAL STATEMENT: IMPRESSION: 1. Expected placement of left nephro-ureteric stent.2. No evidence of right urinary tract obstruction. Assessment/Plan Patient is a 32 yo woman with a history of stage IIIB cervical cancer s/p chemoradiationiin remission, has a history obstructive uropathy with left nephrostomy tube in place; admitted for pelvic pain and complicated urinary tract infection. >> Admit to regular floor >> Condition: Stable >> Vitals: q4hr >> Activity: Ambulate, up to chair >> Diet: NPO for procedure >> IVF: NS 75 cc/hr >> DVT Prophylaxis: SCDs, Heparin held for procedure Complicated Urinary Tract Infection - Directly admitted for pelvic pain, flank pain, and UTI - Left Nephrostomy tube in place since 2019. Last IR nephrostomy tube exchange 08/14/2022 - Recurrent history of complicated urinary tract infection with ESBL / E. coli / Enterococcus / Klebsiella pneumonia - Urinalysis tests from L nephrostomy tube and clean catch both positive for nitrites, await cultures and sensitivities - Continue Zosyn - Overall kidney function stable, Cr 0.98 - IVF NS 75cc/hr - Strict I's and O's - Voided 100cc overnight, 600cc L Nephrostomy output - 01/01 Urogram: No evidence of right urinary tract obstruction. - Nephrostomy tube exchange today - Blood culture pending Pelvic pain - Likely due to history of chemoradiation therapy - Oxycodone, Tylenol, and IV Dilaudid for breakthrough History of cervical cancer - Stage IIIB SCC of cervix - S/p Chemoradiation, currently in remission -Recent CT 08/02/22 unremarkable for signs of cancer recurrence -Recent Pap smear (07/15) negative for cervical dysplasia, however positive for HPV. For 6 months follow up per Dr. Martin's last note - Port-A-Cath in place Tobacco - For Nicotine patch if patient desires - Smokes 1/2 PPD Anxiety - Declined counseling - Continue Ativan home dose TID PRN Asthma - Not in acute exacerbation Obstructive uropathy s/p Left Nephrostomy tube - Initially placed in 2019. - Last exchanged 11/25/2022 - Left nephrostomy tube exchange ordered - Heparin held, NPO for procedure Poor appetite - Nutrition consultation in the morning - Can consider appetite stimulants and supplements - NPO at midnight for procedure Disposition: IV antibiotics, Blood and urine cultures pending. Plan for IR nephrostomy tube exchange. Digitally Signed by ALANNA SCANLON DO on 01/02/2023 07:57 AM [facility] [id number] Note ORIGINAL EXAMINATION: CT UROGRAM 01/01/2023 6:17 pm TECHNIQUE: CT of the abdomen and pelvis was performed before and after the administration of intravenous contrast as per CT urogram protocol. Multiplanar reformatted images as well as MIP urogram images are provided for review. Dose modulation, iterative reconstruction, and/or weight based adjustment of the mA/kV was utilized to reduce the radiation dose to as low as reasonably achievable. COMPARISON: CT urogram October 05, 2022, stents flus food urges November 15, 2022 HISTORY: ORDERING SYSTEM PROVIDED HISTORY: Reason for Exam: right sided flank pain, vaginal pain, r/o right ureteral obstruction, known left neph tube 05/24, hx cervical ca Suspect right sided obstruction FINDINGS: Lower Chest: No focal consolidation or pleural effusion is seen. Kidneys and Urinary Tract: External internal left nephro ureteric stent appears appropriately placed. The right collecting system enhances normally on urographic phase. Stable left upper pole renal scarring. Organs: The liver, spleen, pancreas, and adrenals appear stable, normal. GI/Bowel: No acute abnormality. Pelvis: The patient is status post hysterectomy. Pelvic organs appears stable. Peritoneum/Retroperitoneum: Stable mildly prominent but not enlarged left para-aortic nodes. No hemorrhage or vascular abnormality. Bones/Soft Tissues: No focal bone or soft tissue abnormality is seen. IMPRESSION: 1. Expected placement of left nephro-ureteric stent. 2. No evidence of right urinary tract obstruction. Interpreted by: Tricia Mccall Preliminary Report By: Tricia Mccall Electronically signed By Tricia Mccall Dictated Date: 01/01/2023 11:53:18 PM Prelim Date: 01/02/2023 12:04:48 AM Sign Date: 01/02/2023 12:04:48 AM Ordering Provider: [facility]ON [id number] Note ORIGINAL EXAMINATION: CT UROGRAM 01/01/2023 6:17 pm TECHNIQUE: CT of the abdomen and pelvis was performed before and after the administration of intravenous contrast as per CT urogram protocol. Multiplanar reformatted images as well as MIP urogram images are provided for review. Dose modulation, iterative reconstruction, and/or weight based adjustment of the mA/kV was utilized to reduce the radiation dose to as low as reasonably achievable. COMPARISON: CT urogram October 05, 2022, stents flus food urges November 15, 2022 HISTORY: ORDERING SYSTEM PROVIDED HISTORY: Reason for Exam: right sided flank pain, vaginal pain, r/o right ureteral obstruction, known left neph tube 05/24, hx cervical ca Suspect right sided obstruction FINDINGS: Lower Chest: No focal consolidation or pleural effusion is seen. Kidneys and Urinary Tract: External internal left nephro ureteric stent appears appropriately placed. The right collecting system enhances normally on urographic phase. Stable left upper pole renal scarring. Organs: The liver, spleen, pancreas, and adrenals appear stable, normal. GI/Bowel: No acute abnormality. Pelvis: The patient is status post hysterectomy. Pelvic organs appears stable. Peritoneum/Retroperitoneum: Stable mildly prominent but not enlarged left para-aortic nodes. No hemorrhage or vascular abnormality. Bones/Soft Tissues: No focal bone or soft tissue abnormality is seen. IMPRESSION: 1. Expected placement of left nephro-ureteric stent. 2. No evidence of right urinary tract obstruction. Interpreted by: Tricia Mccall Preliminary Report By: Tricia Mccall Electronically signed By Tricia Mccall Dictated Date: 01/01/2023 11:53:18 PM Prelim Date: 01/02/2023 12:04:48 AM Sign Date: 01/02/2023 12:04:48 AM Ordering Provider: ALANNA [facility]03-01-2023 History and physical note Date of Service 01/01/2023 Chief Complaint flank pain, vaginal pain, decreased urine output History of Present Illness 32 yo Woman with history of Stage IIIB cervical cancer s/p chemoradiation currently in remission, presents as a direct admission from Dr. Martin's clinic for vaginal pain and left flank pain. Patient has a left Nephrostomy tube in place since 2019, it was last exchanged on 11/25/2022. Right kidney drains to bladder and she states that she has not urinated for 5 days. She presented to infusion therapy today. Cr at that time was 0.85. She has a history of complicated UTIs. She did deny gross hematuria from the right kidney. Left kidney with bloody drainage, contained within Ziploc bag. Vaginal pain is worse than usual, worse than it has ever been. Pain is keeping her from eating, dueto poor appetite. She states that when she does eat, she is able to keep food down. She endorses nausea. Vomited last night. She takes Tylenol with Oxycodone at home. She reports that she recently from a 6 year relationship with her boyfriend and that has made everything more difficult. She denies fever, chills, night sweats, intermittent shortness of breath with physical activity, dysuria, lower abdominal pain, visual changes, headache, chest pain, dizziness, vaginal bleeding, vaginal discharge. 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 Menarche age 14. Amenorrheic since initiation of Chemoradiation. Denies mammogram ever. Colonoscopy in 2019. Denies history of STDs. Not sexually active. Family History Mother with breast cancer Sister with cervical cancer Grandmother with cervical cancer Aunts with cervical cancer Cousins with cervical cancer ONCOLOGY HISTORY: - 04/04/2020: CT scan abdomen and pelvis. [facility]. Thickened cervical wall with involvementof the lower uterine segment, highly concerning for malignancy. There is involvement of the left ureter resulting in left hydronephrosis and hydroureter. Mildly enlarged right external iliac lymph node measuring 1.4 x 1.1 x 1.2 cm. - 04/13/2020: CT thorax. No evidence of active malignancy in the thorax. - 04/13/2020: IR nephrostomy tube insertion on the left. - 04/13/2020: MRI of the pelvis with contrast. Large uterine mass with extension to the pelvic fat and possible involvement of the mesorectal fascia. There is a prominent but not pathologically enlarged left pelvic lymph node which could be metastatic. Large cervical mass measuring 4.7 x 5.8 cm. - : Examination under Anesthesia, Cystourethroscopy, Cervical biopsies, Proctoscopy - 04/26/2020 Week #1 Cisplatin 40mg/m2 - 05/03/2020 Week #2 Cisplatin 20mg/m2 - 05/10/2020 Week #3 Cisplatin 20mg/m2 - 05/17/2020 Week #4 Cisplatin 20mg/m2 - 05/24/2020 Week #5 Cisplatin 20mg/m2 - 05/31/2020 Week #6 Cisplatin 20mg/m2 - 08/18/2020: CT urogram. Left percutaneous nephrostomy tube in place. Minimal left upper pole striated nephrogram. This finding is nonspecific and may be seen with inflammation or obstruction. Sincethere is no significant adjacent infiltrative changes within the perinephric fat, this could potentially be indicative of minimal left side obstruction. Improvement of the cervix lesion since the prior exam, diminished in size since prior study. - 12/07/2020 PET/CT no abnormal uptake at the uterine cervix, FDG avid lymphadenopathy or metastatic disease is seen. - 2020 CT abdomen and pelvis decreased left nephrogram with ectasia of the left upper tract and enhancement of the uroepithelium lining is worrisome for obstruction and/or infection following interval ureteral stent removal. - 01/09/2021 MRI of the pelvis treated disease with no significant residual tumor identified on this exam. Mild infiltrative change within the deep pelvic fat is presumably the result of radiation therapy, and attention to follow-up is recommended. Re-demonstration of mildly dilated left ureter and collecting system, compatible of history of pyelonephritis. RADIATION SUMMARY: Dates of treatment: 04/26/2020 - 06/07/2020 Treatment details : Initially the pelvis was treated to a dose of 4500 cGy in 25 fractions using intensity modulated radiation therapy with 6 MV photons. Following this dose the parametrium was boosted an additional 540 cGy in 3 fractions through AP PA quintero with midline block taken her final pelvic tumor dose to 5040 centigray. She was treated with concurrent cisplatin based chemotherapy. The patient then underwent for intracavitary brachii therapy applications with [id number] iridium 192afterloading device utilizing a tandem and ring. 2400 cGy was delivered at 600 cGy per fraction to point A from June 14, 2020 through July 11, 2020. The plan was to deliver 5 brachytherapy applications, however, the patient failed to show for surgery 3 times. Therefore, the decision to foregothe last treatment was made as it had been nearly 3 months since initiating therapy. Course: C1 Pelvis Treatment Site Ref. ID Energy Dose/Fx (cGy) #Fx Total Dose (cGy) Start Date End Date Elapsed Days IMRT SEAM RUBBER Pelvis 6X 180 4,500 04/26/2020 06/02/2020 37 3D PM Bst 18X 180 540 06/05/2020 06/07/2020 2 GENETIC TESTING: - Patient had genetic testing sent through [facility]. No reportable somatic or germline pathogenic or actionable mutations were found. Tumor mutational burden was 39th percentile. Microsatellite instability status stable. Somatic variants of unknown significance were found in PRKDC, TRAF3, AGUSTIN, ERBB4, and CXCR4. Variants of unknown significance and germline mutations were found in BRCA2 and RAD51C.DNA mismatch repair protein expression was normal. PD-L1 expression was positive. Review of Systems See HPI for pertinent positives. A full review of systems was conducted and found to be otherwise negative. Physical Exam Vitals and Measurements T: 36.4 C (Oral) HR: 64 RR: 16 BP: 142/98 SpO2: 99% HT: 167.6 cm WT: 47.7 kg BMI: 16.98 Weight Dosing Weight: 47.7 kg (01/01/23) Lab Results WBC: 8.9 10^3/mcL (01/01/23 13:18:00) RBC: 4.16 10^6/mcL (01/01/23 13:18:00) Hgb: 13.4 G/dL (01/01/23 13:18:00) Hct: 40.8 % (01/01/23 13:18:00) MCV: 98 fL (01/01/23 13:18:00) MCH: 32.1 pg (01/01/23 13:18:00) MCHC: 32.8 G/dL (01/01/23 13:18:00) RDW: 14.3 % (01/01/23 13:18:00) Platelet: 396 10^3/mcL (01/01/23 13:18:00) MPV: 7.5 fL (01/01/23 13:18:00) Neutrophil %: 67.5 % (01/01/23 13:18:00) Lymphocyte %: 20.6 % (01/01/23 13:18:00) Monocyte %: 6.3 % (01/01/23 13:18:00) Eosinophil %: 4.2 % (01/01/23 13:18:00) Basophil %: 1.4 % (01/01/23 13:18:00) Neutrophil, Absolute: 6 10^3/mcL (01/01/23 13:18:00) Lymphocyte, Absolute: 1.8 10^3/mcL (01/01/23 13:18:00) Monocyte, Absolute: 0.6 10^3/mcL (01/01/23 13:18:00) Eosinophil, Absolute: 0.4 10^3/mcL (01/01/23 13:18:00) Basophil, Absolute: 0.1 10^3/mcL (01/01/23 13:18:00) UA Specimen Type: Catheter (01/01/23 13:18:00) UA Color: Red Abnormal (01/01/23 13:18:00) UA Appear: Cloudy Abnormal (01/01/23 13:18:00) UA Spec Grav: >=1.030 Abnormal (01/01/23 13:18:00) UA Glucose: Negative. (01/01/23 13:18:00) UA Bili: Small Abnormal (01/01/23 13:18:00) UA Ketones: Negative.1 (01/01/23 13:18:00) UA Blood: Large Abnormal (01/01/23 13:18:00) UA pH: 7.0 (01/01/23 13:18:00) UA Protein: >=1000 Abnormal (01/01/23 13:18:00) UA Urobilinogen: 1.0 (01/01/23 13:18:00) UA Nitrite: Positive.1 Abnormal (01/01/23 13:18:00) UA Leuk Est: Large Abnormal (01/01/23 13:18:00) UA RBC: LOADED Abnormal (01/01/23 13:18:00) UA WBC: LOADED Abnormal (01/01/23 13:18:00) UA Squam Epithelial: 0-2 (01/01/23 13:18:00) UA Mucous: 2+ (01/01/23 13:18:00) UA Bacteria: 4+ Abnormal (01/01/23 13:18:00) UA CA Ox Crystal: 2+ (01/01/23 13:18:00) UA Trip Rai Crystals: 3+ (01/01/23 13:18:00) Glucose Level: 84 mg/dL (01/01/23 13:18:00) Sodium Level: 139 mEq/L (01/01/23 13:18:00) Potassium Level: 3.8 mEq/L (01/01/23 13:18:00) Chloride: 112 mEq/L High (01/01/23 13:18:00) CO2: 25 mEq/L (01/01/23 13:18:00) Electrolyte Balance: 2 mEq/L Low (01/01/23 13:18:00) BUN: 11 mg/dL (01/01/23 13:18:00) Creatinine Lvl (s): 0.85 mg/dL (01/01/23 13:18:00) BUN/Creatinine Ratio: 12.9 ratio (01/01/23:18:00) Calcium Lvl: 9.9 mg/dL (01/01/23 13:18:00) Magnesium Lvl: 1.9 mg/dL (01/01/23 13:18:00) Phosphorus: 3.1 mg/dL (01/01/23 13:18:00) Total Protein: 6.9 G/dL (01/01/23 13:18:00) Albumin Level: 3.8 G/dL (01/01/23 13:18:00) Globulin: 3.1 G/dL (01/01/23 13:18:00) A/G Ratio: 1.2 ratio (01/01/23 13:18:00) Bili Total: 0.2 mg/dL (01/01/23 13:18:00) Bili Direct: <0.1 (01/01/23 13:18:00) Bili Indirect: Unable to Calculate (01/01/23 13:18:00) Alk Phos: 82 U/L (01/01/23 13:18:00) AST/SGOT: 14 U/L (01/01/23 13:18:00) ALT/SGPT: <8 Low (01/01/23 13:18:00) Iron: 35 mcg/dL Low (01/01/23 13:18:00) TIBC: 288 mcg/dL (01/01/23 13:18:00) Iron Sat: 12 % (01/01/23 13:18:00) GFR Non-: >60 (01/01/23 13:18:00) GFR : >60 (01/01/23 13:18:00) Ferritin: 48 ng/mL (01/01/23 13:18:00) Folate: 9.92 ng/mL (01/01/23 13:18:00) Vit. D 25-Hydroxy: 18.6 ng/mL (01/01/23 13:18:00) Vitamin B12 Lvl: 301 pg/mL (01/01/23 13:18:00) U Creatinine: 194.8 mg/dL (01/01/23 13:18:00) U Protein: 450.4 mg/dL (01/01/23 13:18:00) U Ratio Prot/Creat: 2.3 ratio (01/01/23 13:18:00) Assessment/Plan Patient is a 32 yo woman with a history of stage IIIB cervical cancer s/p chemoradiation,has a history obstructive uropathy with left nephrostomy tube in place; admitted for pelvic pain and complicated urinary tract infection. >> Admit to regular floor >> Condition: Stable >> Vitals: q4hr >> Activity: Ambulate, up to chair >> Diet: Regular >> IVF: NS 75 cc/hr >> DVT Prophylaxis: SCDs Complicated Urinary Tract Infection - Directly admitted for pelvic pain, flank pain, and UTI - Left Nephrostomy tube in place since 2019. Last IR nephrostomy tube exchange 08/14/2022 - Recurrent history of complicated urinary tract infection with ESBL / E. coli / Enterococcus / Klebsiella pneumonia - Zosyn started - Urinalysis and urine culture from left nephrostomy tube pending - Urinalysis and straight catheter urine culture from pending - Blood culture pending - Cr 0.85. UPC 2.3. GFR >60 - Strict I's and O's Pelvic pain - Likely due to history of chemoradiation therapy - Oxycodone, Tylenol, and IV Dilaudid for breakthrough History of cervical cancer - Stage IIIB SCC of cervix - S/p Chemoradiation, currently in remission -Recent CT 08/02/22 unremarkable for signs of cancer recurrence -Recent Pap smear (07/15) negative for cervical dysplasia, however positive for HPV. For 6 months follow up per Dr. Martin's last note - Port-A-Cath in place Tobacco - For Nicotine patch if patient desires - Smokes 1/2 PPD Anxiety - Declined counseling - Continue Ativan home dose TID PRN Asthma - Not in acute exacerbation Obstructive uropathy s/p Left Nephrostomy tube - Initially placed in 2019. - Last exchanged 11/25/2022 - CT Urogram ordered - Left nephrostomy tube exchange ordered Poor appetite - Nutrition consultation in the morning - Can consider appetite stimulants and supplements - NPO at midnight for procedure Disposition: Admit patient for management of suspected complicated UTI, initiating IV antibiotics, Blood and urine cultures pending, for Urogram, pain control. Plan for IR nephrostomy tube exchange. Problem List/Past Medical History Ongoing Acute kidney injury Anxiety Asthma Cervical cancer Complicated UTI (urinary tract infection) Decreased appetite Dehydration DVT prophylaxis History of chemotherapy History of radiation therapy Left flank pain Moderate protein-calorie malnutrition Nausea and vomiting Nephrostomy status Obstructive uropathy Port-A-Cath in place Premature menopause Pyelonephritis Historical Cervicitis Chronic kidney disease, stage 3 (moderate) Encounter for antineoplastic chemotherapy History of COVID-19 Hydronephrosis of left kidney Mass of cervix Tinnitus Procedure/Surgical History Nephrostomy with tube drainage: 01/10/21 JJ stent: 11/15/20 Radiation: 06/2020 Cervical biopsy: 2019 Tumor cells, benign: 2001 Cannulation of Portacath Nephrostomy with tube drainage Medications Home Medications (7) Active acetaminophen-oxyCODONE 325 mg-5 mg oral tablet 1 tab(s), Oral, q6hr Ativan 1 mg oral tablet 1 mg = 1 tab(s), PRN, Oral, TID Colace 100 mg oral capsule 100 mg = 1 cap(s), PRN, Oral, BID gabapentin 300 mg oral capsule 300 mg = 1 cap(s), Oral, qHS Normal Saline Flush 0.9% injectable solution 0.09 gram(s) = 10 mL, IR Drain, Daily Tylenol 325 mg oral capsule 650 mg, PRN, Oral, q4h Zofran 4 mg oral tablet 4 mg = 1 tab(s), PRN, Oral, q6h Allergies Oranges penicillin Social History Alcohol - Denies Alcohol Use, 06/13/2020 Use: Current. Type: Beer. Frequency: 1-2 times per week., 12/21/2021 Home/Environment - No Risk, 06/13/2020 Domestic Concerns: None. Living situation: Home/Independent. Safe place to go: Yes. Lives In: Mobile home, 1st floor bedroom, 1st floor bathroom. Current Home Treatments None. Professional Skilled Services or Special Community Resources None. Financial concerns: No. Marital Status: Unmarried., 06/13/2020 Nutrition/Health - No Risk, 06/13/2020 Type of diet: Regular. Appetite Fair. Eating Difficulties None. Caffeine intake amount: 1 can pop per day., 06/13/2020 Sexual Sexually active: Yes. First active at age: 18 Years. Current partners: 1. Number of lifetime partners: 7. Self described orientation: Straight or heterosexual. Other contraceptive use: condoms. History of sexual abuse: No. Gender Identity: Identifies as female., 04/12/2020 Substance Abuse - Denies Substance Abuse, 06/13/2020 Use: Never., 04/12/2020 Tobacco Nicotine Use: 5-9 cigarettes (between 1/4 to 1/2 pack)/day in last 30 days. Type: Cigarettes. Tobacco use per day: 10. Number of years: 10. Started at age: 19 Years. Previous treatment: None. Ready to change: Yes., 04/12/2020 Family History Alcohol abuse: Father. Asthma: Mother. Bladder cancer: Negative: Mother, Father, Sister, Brother, Daughter, Son and Grandparent. Breast cancer: Mother. COPD - Chronic obstructive pulmonary disease: Mother. Cancer: Sister. Diabetes: Grandparent. Heart attack: Mother. Heart disease: Mother. Hypertension: Mother. Kidney stone: Mother. Renal cancer: Negative: Mother, Father, Sister, Brother, Daughter, Son and Grandparent. Stroke: Father and Grandparent. Substance abuse: Father. Immunizations hepatitis B pediatric vaccine: 0 unknown unit (06/16/01) hepatitis B pediatric vaccine: 0 unknown unit (06/21/98) measles/mumps/rubella virus vaccine: 0 unknown unit (06/16/01) Code Status DNR DNI Digitally Signed by ALANNA SCANLON DO on 01/01/2023 06:18 PM [id number] Summary of episode note LALY NAVAS :1990 Visit Date:01/01/2023 Your Visit Summary Your Diagnosis Malignant neoplasm of cervix uteri, unspecified, Cervical cancer Tests Performed .Auto Differential .Estimated Glomerular Filtration Rate .Neutro Absolute B12 Basic Metabolic Panel Complete Blood Count Ferritin Folate Level Hepatic Function Panel ([facility]) Iron Studies Magnesium Level Phosphorus Level UA Urinalysis Microscopic Urine Culture -- Results Pending -- Urine Protein/Creat Ratio Vitamin D Level You will be contacted within 72 hours with your results. Your Care Team Attending Physician - FLIP MARTIN MD Primary Care Physician - FLIP MARTIN MD Vitals Temperature (Oral) 36.6 C Heart Rate 62 Respiratory Rate 18 Blood Pressure 137/106 Height 167.6 cm What to do next Instructions From Your Doctor You have received the following therapy today: _Hydration Call your physician if any of the following problems occur: _ Scheduled Follow-Up Appointments Appointment Type When Where Contact InformationIR Neph Cath-Neph Ureter W/Guide Left 01/07/2023 11:00 AM EST IR Medications What How Much When Why Instructions Unchanged acetaminophen (Tylenol 325 mg oral capsule) 650 Milligram by mouth Every 4 hours as needed for Pain, scale 1-3 Unchanged acetaminophen-oxyCODONE (acetaminophen-oxyCODONE 325 mg-5 mg oral tablet) 1 tab(s) by mouth Every 6 hours Cervical cancer Duration: 30 Days Unchanged docusate (Colace 100 mg oral capsule) 1 cap by mouth Two (2) times a day as needed for as needed for constipation Unchanged gabapentin (gabapentin 300 mg oral capsule) 1 cap by mouth Daily at bedtime Cervical cancer Duration: 30 Days Unchanged LORazepam (Ativan 1 mg oral tablet) 1 tab(s) by mouth Three (3) times a day as needed for as needed for anxiety Cervical cancer Anxiety Duration: 30 Days Unchanged ondansetron (Zofran 4 mg oral tablet) 1 tab(s) by mouth Every 6 hours as needed for Nausea/Vomiting Cervical cancer Unchanged sodium chloride (Normal Saline Flush 0.9% injectable solution) 10 Milliliter IR Drain Every day Test Results .Auto Differential (01/01/2023) Neutrophil % - 67.5 % Lymphocyte % - 20.6 % Monocyte % - 6.3 % Eosinophil % - 4.2 % Basophil % - 1.4 % Lymphocyte, Absolute - 1.8 10^3/mcL Monocyte, Absolute - 0.6 10^3/mcL Eosinophil, Absolute - 0.410^3/mcL Basophil, Absolute - 0.1 10^3/mcL .Estimated Glomerular Filtration Rate (01/01/2023) GFR Non- - >60 ml/min/1.73sqm GFR - >60 ml/min/1.73sqm .Neutro Absolute (01/01/2023) Neutrophil, Absolute - 6.0 10^3/mcL B12 (01/01/2023) Vitamin B12 Lvl - 301 pg/mL Basic Metabolic Panel (01/01/2023) Glucose Level - 84 mg/dL Sodium Level - 139 mEq/L Potassium Level - 3.8 mEq/L Chloride - 112 mEq/L CO2 - 25 mEq/L Electrolyte Balance - 2.0 mEq/L BUN - 11.0 mg/dL Creatinine Lvl (s) - 0.85 mg/dL BUN/Creatinine Ratio - 12.9 ratio Calcium Lvl - 9.9 mg/dL Complete Blood Count (01/01/2023) WBC - 8.9 10^3/mcL RBC - 4.16 10^6/mcL Hgb - 13.4 G/dL Hct - 40.8 % MCV - 98.0 fL MCH - 32.1 pg MCHC - 32.8 G/dL RDW - 14.3 % Platelet - 396 10^3/mcL MPV - 7.5 fL Ferritin (01/01/2023) Ferritin - 48.0 ng/mL Folate Level (01/01/2023) Folate - 9.92 ng/mL Hepatic Function Panel ([facility]) (01/01/2023) Total Protein - 6.9 G/dL Albumin Level - 3.8 G/dL Globulin - 3.1 G/dL A/G Ratio - 1.2 ratio Bili Total - 0.20 mg/dL Bili Direct - <0.1 mg/dL Bili Indirect - Unable to Calculate Alk Phos - 82 U/L AST/SGOT - 14 U/L ALT/SGPT - <8 U/L Iron Studies (01/01/2023) Iron - 35 mcg/dL TIBC - 288 mcg/dL Iron Sat - 12 % Magnesium Level (01/01/2023) Magnesium Lvl - 1.9 mg/dL Phosphorus Level (01/01/2023) Phosphorus - 3.1 mg/dL UA (01/01/2023) UA Specimen Type - Catheter UA Color - Red UA Appear - Cloudy UA Spec Grav - >=1.030 UA Glucose - Negative. UA Bili - Small UA Ketones - Negative.1 UA Blood - Large UA pH - 7.0 UA Protein - >=1000 UA Urobilinogen - 1.0 UA Nitrite - Positive.1 UA Leuk Est - Large Urinalysis Microscopic (01/01/2023) UA RBC - LOADED UA WBC - LOADED UA Squam Epithelial - 0-2 UA Mucous - 2+ UA Bacteria - 4+ UA CA Ox Crystal - 2+ UA Trip Rai Crystals - 3+ Urine Protein/Creat Ratio (01/01/2023) U Creatinine - 194.8 mg/dL U Protein - 450.4 mg/dL U Ratio Prot/Creat - 2.3 ratio Vitamin D Level (01/01/2023) Vit. D 25-Hydroxy - 18.6 ng/mL Allergies Oranges penicillin Additional Information VACCINATE! IT SAVES LIVES! Members of the community who have not yet received the COVID-19 vaccine and would like to receive it can visit one of [facility] vaccine clinics. There are many vaccine clinic locations within the [facility]. For locations and available times, please visit [email or web address] It is important to note that some COVID mobile vaccine clinics are held outdoors and may be canceled in rainy or stormy conditions. To learn more about pediatric vaccinations (ages 5-11), we invite you to visit the [facility] webpage. [email or web address] learn more about the COVID-19 vaccine, we invite you to visit the CDC website for a list of frequently asked questions. https://www.cdc.gov/coronavirus/2019-ncov/vaccines/faq.html [facility] Patient Portal Access Instructions: Stay connected with your healthcare team and access your personal medical information anytime with the [facility] Patient Portal.If you would like a full copy of your medical records, please contact the [facility] Medical Records Department, Friday through Friday between 8a.m. and 4:30p.m. Please follow the directions below to access the portal: 1.Access the email account you provided upon registration to the hospital.2.Look for an invitation email from [facility].3.Open the email and access the invitation link: Accept Invitation to [employer]4.Fill in the required quintero to create your account. Sign into [email or web address] with your username and password that you created in the above steps to stay up to date. You can then view a summary of results, a summary of your visits, and the ability to download your summaries to your computer or send the information securely to a physician. Remember that your healthcare information is confidential, so carefully consider who you will allow to register on the [facility] [employer] Patient Portal for access to your information. You can also access the [employer] Patient Portal on the [employer]. Simply click on Health Records under [place] and then click on the [employer] logo. HOW TO SAFELY DISPOSE OF PRESCRIPTION MEDICATIONS Please use one of the following methods to safely dispose of your unused medications. 1.Use a drug disposal kit: the drug disposal pouch allows you to safely discard your old and unuseddrugs. Ask your nurse to give you one when you are discharged.2.Visit a local take-back location: Many local pharmacies and police departments have programs that collect old and unwanted prescriptiondrugs. Call your local pharmacy or go to http://Wishabi.ConsumerBell/0E5Ia1q to find one close to you.3.Make use of household items: Use cat litter or old coffee grounds to dispose medications if other options arenot available. Mix your drugs with these household products, seal them in an airtight container andthrow it into the garbage. Call [facility]: [phone] to be sure your drugs can be disposed of in this way. Some medicines may require a different approach.4.Never flush your medications down the toilet. IF YOU HAVE BEEN PRESCRIBED AN OPIOID FOR PAIN If you have been prescribed an opioid (such as hydrocodone, oxycodone or morphine), it is critical to understand the possible side effects and risks of opioid pain medications. Even when taken as directed, opioids can have several side effects including: Tolerance, meaning you might need to take more of a medication for the same pain relief. Nausea, vomiting and/or constipation. Sleepiness, dizziness, dry mouth, confusion, depression or itching. Physical dependence, meaning you have withdrawal symptoms when a medication is stopped, can develop within a few days. KNOW YOUR RESPONSIBILITIES It is important to know exactly how much and how often to take the opioid pain medications you are prescribed. Never take opioids in higher amounts or more often than prescribed. Do not combine opioids with alcohol or other drugs that cause drowsiness, such as benzodiazepines, also known as benzos, including diazepam and alprazolam, muscle relaxants or sleep aids. Never sell or share prescription opioids. This is illegal. Store opioids in a secure place and out of reach of others (including children, family, friends and visitors). The last page of this document has been signed and retained as a CHART COPY. Signatures Patient Education Materials Medication Leaflets My discharge plan and instructions have been reviewed and explained to me and I,LALY NAVAS understand my current condition and have read and understand these discharge instructions. I have received a written copy of the plan/instructions. If I have questions, I am aware that I should contact my doctor. 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 >> Admit to regular floor >> Condition: Stable >> Vitals: q4hr >> Activity: Ambulate, up to chair >> Diet: Regular >> IVF: NS 75 cc/hr >> DVT Prophylaxis: SCDs Complicated Urinary Tract Infection - Directly admitted for pelvic pain, flank pain, and UTI - Left Nephrostomy tube in place since 2019. Last IR nephrostomy tube exchange 08/14/2022 - Recurrent history of complicated urinary tract infection with ESBL / E. coli / Enterococcus / Klebsiella pneumonia - Zosyn started - Urinalysis and urine culture from left nephrostomy tube pending - Urinalysis and straight catheter urine culture from pending - Blood culture pending - Cr 0.85. UPC 2.3. GFR >60 - Strict I's and O's Pelvic pain - Likely due to history of chemoradiation therapy - Oxycodone, Tylenol, and IV Dilaudid for breakthrough History of cervical cancer - Stage IIIB SCC of cervix - S/p Chemoradiation, currently in remission -Recent CT 08/02/22 unremarkable for signs of cancer recurrence -Recent Pap smear (07/15) negative for cervical dysplasia, however positive for HPV. For 6 months follow up per Dr. Martin's last note - Port-A-Cath in place Tobacco - For Nicotine patch if patient desires - Smokes 1/2 PPD Anxiety - Declined counseling - Continue Ativan home dose TID PRN Asthma - Not in acute exacerbation Obstructive uropathy s/p Left Nephrostomy tube - Initially placed in 2019. - Last exchanged 11/25/2022 - CT Urogram ordered - Left nephrostomy tube exchange ordered Poor appetite - Nutrition consultation in the morning - Can consider appetite stimulants and supplements - NPO at midnight for procedure Disposition: Admit patient for management of suspected complicated UTI, initiating IV antibiotics, Blood and urine cultures pending, for Urogram, pain control. Plan for IR nephrostomy tube exchange. Addendum by JODI HILLIARD MD on January 02, 2023 08:03:11 EST I have personally seen, examined, and evaluated the patient on the encounter date. I have reviewed the resident's documentation and agree with the resident's findings and plan as documented, unless otherwise stated. Future Appointments Appointment Date:01/30/2023 02:10:00 PM Scheduled Provider:FLIP MARTIN MD Location:[facility] Appointment Type:SO OV Follow Up Appointment Date:02/17/2023 10:00:00 AM Scheduled Provider: Location:IR Appointment Type:IR Neph Cath-Neph Ureter W/Guide Left Diagnostic Tests Pending * N. gonorrhoeae PCR 01/04/23 * Chlamydia trachomatis PCR 01/04/23 Future Scheduled Tests Radiology* IR Neph Cath-Neph Ureter W/Guide Left 07/03/22 * IR Neph Cath-Neph Ureter W/Guide Left 08/02/22 * IR Neph Cath-Neph Ureter W/Guide Left 09/02/22 * IR Neph Cath-Neph Ureter W/Guide Left 10/02/22 * IR Neph Cath-Neph Ureter W/Guide Left 11/02/22 * IR Neph Cath-Neph Ureter W/Guide Left 12/03/22 * IR Neph Cath-Neph Ureter W/Guide Left 12/31/22 * IR Neph Cath-Neph Ureter W/Guide Left 01/31/23 * IR Neph Cath-Neph Ureter W/Guide Left 03/02/23 * IR Neph Cath-Neph Ureter W/Guide Left 04/02/23 * IR Neph Cath-Neph Ureter W/Guide Left 05/02/23 * IR Neph Cath-Neph Ureter W/Guide Left 06/02/23 * IR Neph Cath-Neph Ureter W/Guide Left 02/17/23 [facility] 01-13-2023 Note ORIGINAL PROCEDURE: INTRODUCTION-NEPHRO TUBE MODERATE CONSCIOUS SEDATION 11/15/2022 HISTORY: ORDERING SYSTEM PROVIDED HISTORY: Reason for Exam: CERVICAL CA, LAST CHANGE 10/02/22 TECHNIQUE: Fluoroscopy CONTRAST: 8 cc Omnipaque 300 SEDATION: Moderate sedation was ordered and supervised by the attending with physician [id number] monitoring. Medications were provided and recorded by Radiology nurses. FLUOROSCOPY DOSE AND TYPE OR TIME AND EXPOSURES: Fluoroscopy: Time: 23.8 minutes. Air kerma: 92.0 mGy Number of images: 15 DESCRIPTION OF PROCEDURE: Informed consent was obtained after a detailed explanation of the procedure including risks, benefits, and alternatives. Webster protocol was observed. Sterile gowns, masks, hats and gloves utilized for maximal sterile barrier. 1% lidocaine was used for local anesthesia. A nephrostogram was attempted. Antegrade pyelography revealed an occluded nephroureteral stent. Contrast could only be placed in the renal pelvis initially. Using a series of catheters and guidewires, multiple attempts were made to recanalized the petrified stent without success. An angled glidewire was then advanced along the side of the catheter to the urinary bladder. 9 and 10 Andorran vascular sheath were guided over the catheter in an attempt to release the petrifde catheter without significant success. A 4 x 40 angioplasty balloon was guided along the margins of the catheter and the petrified debris was mechanically released from the ureter. The firmly petrified segment extended to approximately 8 cm above the urinary bladder. The catheter was then readily removed. A new 8 Andorran 24 cm nephroureteral stent was guided into the renal collecting system. The proximal loop was formed within the renal pelvis and the distal loop was formed within the bladder and locked. A follow-up nephrostogram was obtained. Sterile dressings were placed at the access site. The patient was evaluated clinically then discharge. FINDINGS: The nephroureteral stent has become occluded. There was a double loop formed within the renal pelvis on presentation. Injection of contrast revealed opacification of the renal pelvis only. Mechanical released of calcified debris from the catheter lumen was performed using the Amplatz wire and stiff Glidewire. Better opacification of the proximal ureter could then be achieved. After placement of the new catheter, opacification of the bladder could be achieved. The final images reveal successful placement of a new NU stent with opacification of both its proximal and distal ends. The patient tolerated the procedure well IMPRESSION: 1. Left nephrostogram with antegrade pyelography 2. Mechanical release of the petrified catheter from the left ureter using a 4 x 40 angioplasty balloon. 3. Placement of a new 8 Andorran 24 cm nephroureteral stent in the left renal collecting system Interpreted by: Janet Florez Preliminary Report By: Janet Florez Electronically signed By Janet Florez Dictated Date: 11/15/2022 4:52:51 PM Prelim Date: 11/15/2022 5:22:54 PM Sign Date: 11/15/2022 5:22:54 PM Ordering Provider: BRITTNI LU [id number] Discharge instructions Patient Education 11/15/2022 13:39:47 Radiology- Nephrostomy Tube Insertion (CUSTOM) SAVANNAH Nephrostomy Tube Exchange Discharge Instructions Interventional Radiology [facility] [address] [place] [address] The procedure that you had done today is called a percutaneous nephrostomy. A catheter was placed in your back to access the urine collecting system in your kidney. This catheter will drain the urinefrom the affected kidney. You may also urinate in the normal manner from both the affected and unaffected kidney. Your urine may be blood tinged, in the bag and from regular urination, for up to 48 hours. You may have been given IV sedation during your procedure, and a local anesthetic to numb your skin. You may feel some discomfort after the local anesthetic wears off. This should gradually improve over the next several days. Diet: Resume your normal diet. Start with clear liquids; gradually add other foods as tolerated. Drink extra fluids while the catheter is in place (6-8 glasses a day). Activity: Rest for the remainder of the day. Someone must drive you home. Pain Control: Mild back discomfort on the side of the tube placement may occur for the first 24 hours and you mayexperience the feeling of needing to urinate. Nhlv-vyz-pbxtjzr pain medication should be used for pain or discomfort. Please check with the physician who sent you for this procedure for their specific recommendations. If your pain is not relieved or becomes more severe, notify the physician who sent you for this procedure. If you were sedated for this procedure: Avoid alcoholic beverages for 24 hours after your procedure. Do not drive or operate heavy machinery for 24 hours after your procedure. Do not make any legal decisions for 24 hours after your procedure. Medication: Please resume home medications today as scheduled. Nephrostomy Care: Wash your hands well with soap and water before and after caring for your nephrostomy tube. Keep the skin around the nephrostomy bag dry. If the area does get wet, dry the skin completely. Avoid swimming. You may shower with the nephrostomy bag attached to the skin, sit in a shallow bath, or sponge bathe while the catheter is in place. Be sure to keep the water level below the dressingwhen tub bathing. The physician who sent you here for this procedure should have supplied you with a prescription fornephrostomy supplies. Please refer to the accompanying instructions to fill the prescription or youcan check with your pharmacy of choice and see if they can get these items for you. Change the flexible wafer and the urostomy pouch every week, or as needed if it is leaking. Keep all ports of the urostomy pouch and drainage bag as clean as possible to prevent infection. Empty the drainage bags often. Avoid overfilling. If the nephrostomy tube is needed for an extended amount of time, it is recommended that the tube be replaced by a radiologist. The physician who ordered the nephrostomy tube for you will provide youwith specific instructions. Optional, depending on Radiologist s recommendations: During the day, you may attach the urostomy pouch to a leg bag using extension tubing to make it easier to drain the bag by yourself. At night, you may attach the urostomy pouch to a large night time drainage bag so that the bag willnot need emptied as often. When to Seek Medical Care: The tube falls out. Decreased urine output or no urine output. Abnormal bleeding. Foul odor or drainage, redness, swelling, or fever. Worsening pain If you experience any of these issues during the first 24 hours, please follow the instruction below: 8:00 am- 5:00 pm call [phone] After 5:00 pm call [phone] After 24 hours, contact the physician who ordered this procedure for you. Special Instructions: 11/15/2022 13:30:03 Moderate Conscious Sedation, Adult, Care After Moderate Conscious Sedation, Adult, Care After These instructions provide you with information about caring for yourself after your procedure. Your health care provider may also give you more specific instructions. Your treatment has been plannedaccording to current medical practices, but problems sometimes occur. Call your health care provider if you have any problems or questions after your procedure. What can I expect after the procedure? After your procedure, it is common: To feel sleepy for several hours. To feel clumsy and have poor balance for several hours. To have poor judgment for several hours. To vomit if you eat too soon. Follow these instructions at home: For at least 24 hours after the procedure: Do not: ?Participate in activities where you could fall or become injured. ?Drive. ?Use heavy machinery. ?Drink alcohol. ?Take sleeping pills or medicines that cause drowsiness. ?Make important decisions or sign legal documents. ?Take care of children on your own. Rest. Eating and drinking Follow the diet recommended by your health care provider. If you vomit: ?Drink water, juice, or soup when you can drink without vomiting. ?Make sure you have little or no nausea before eating solid foods. General instructions Have a responsible adult stay with you until you are awake and alert. Take kfpw-cmt-cwfvyvk and prescription medicines only as told by your health care provider. If you smoke, do not smoke without supervision. Keep all follow-up visits as told by your health care provider. This is important. Contact a health care provider if: You keep feeling nauseous or you keep vomiting. You feel light-headed. You develop a rash. You have a fever. Get help right away if: You have trouble breathing. This information is not intended to replace advice given to you by your health care provider. Make sure you discuss any questions you have with your health care provider. Document Released: 08/10/2014 Document Revised: 10/02/2018 Document Reviewed: 02/08/2017 [employer] Patient Education 2020 [employer]. Follow Up Care 11/12/2022 14:00:32 With:BRITTNI LU APRN-HA[employer]ARDOUS WASTE REMOVER Address: [address] [place] [address] [place] [address]- [phone] When: Unknown Comments:Follow-up as scheduled With:Call Physician Referral Address:Unknown When: Unknown [facility] 01-13-2023 Evaluation + Plan noteExtracted from: Title:IR pre procedure H&P Author:VIKY GRANADOS PA-C Date:11/15/22 Interventional Radiology Focused Preprocedure History/Physical Reason for Visit CERVICAL CA, LAST CHANGE 10/02/22 History of Presenting Illness/Planned IR Procedure Cervical cancer. Last tube change was 10/02/2022 Allergies (2) ActiveReaction OrangesNone Documented penicillinNone Documented Home Medications (10) Active acetaminophen-oxyCODONE 325 mg-5 mg oral tablet 1 tab(s), Oral, q6hr Ativan 1 mg oral tablet 1 mg = 1 tab(s), PRN, Oral, TID Colace 100 mg oral capsule 100 mg = 1 cap(s), PRN, Oral, BID gabapentin 300 mg oral capsule 300 mg = 1 cap(s), Oral, qHS meropenem 1000 mg intravenous injection 1,000 mg, IV Piggyback, q8h MS Contin 30 mg/8-12 hrs oral tablet, extended release 30 mg = 1 tab(s), Oral, q12h naproxen 250 mg oral tablet 250 mg = 1 tab(s), Oral, BID Normal Saline Flush 0.9% injectable solution 0.09 gram(s) = 10 mL, IR Drain, Daily Tylenol 325 mg oral capsule 650 mg, PRN, Oral, q4h Zofran 4 mg oral tablet 4 mg = 1 tab(s), PRN, Oral, q6h Problem List/Past Medical History Acute kidney injury Anxiety Asthma Bradycardia Cervical cancer Complicated UTI (urinary tract infection) DVT prophylaxis Decreased appetite Dehydration History of chemotherapy History of radiation therapy Left flank pain Moderate protein-calorie malnutrition Nausea and vomiting Nephrostomy status Obstructive uropathy Port-A-Cath in place Premature menopause Pyelonephritis Tobacco use Surgical History Nephrostomy with tube drainage: 01/10/21 JJ stent: 11/15/20 Radiation: 06/2020 Cervical biopsy: 2019 Tumor cells, benign: 2001 Cannulation of Portacath Nephrostomy with tube drainage Family History Mother: Asthma; Breast cancer; COPD - Chronic obstructive pulmonary disease; Heart attack; Heart disease; Hypertension; Kidney stone Father: Alcohol abuse; Stroke; Substance abuse Sister: Cancer Grandparent: Diabetes; Stroke Social History Alcohol Risk Assessment: Denies Alcohol Use; Details: Use: Current. Type: Beer. Frequency: 1-2 times per week. Home/Environment Risk Assessment: No Risk; Details: Domestic Concerns: None. Living situation: Home/Independent. Safe place to go: Yes. Lives In: Mobile home, 1st floor bedroom, 1st floor bathroom. Current Home Treatments None. Professional Skilled Services or Special Community Resources None. Financial concerns: No. Marital Status: Unmarried. Nutrition/Health Risk Assessment: No Risk; Details: Type of diet: Regular. Appetite Fair. Eating Difficulties None. Caffeine intake amount: 1 can pop per day. Sexual Details: Sexually active: Yes. First active at age: 18 Years. Current partners: 1. Number of lifetime partners: 7. Self described orientation: Straight or heterosexual. Other contraceptive use: condoms. History of sexual abuse: No. Gender Identity: Identifies as female. Substance Abuse Risk Assessment: Denies Substance Abuse; Details: Use: Never. Tobacco Details: Nicotine Use: 5-9 cigarettes (between 1/4 to 1/2 pack)/day in last 30 days. Type: Cigarettes. Tobacco use per day: 10. Number of years: 10. Started at age: 19 Years. Previous treatment: None. Ready to change: Yes. Physical Exam Vitals: Arlffevzlsm93.8 (09:52) Systolic Blood PressureNo result Diastolic Blood PressureNo result Pulse69 (09:52) HjV695 (09:52) Respiratory Rate14 (09:52) General: Alert, cooperative. _ The remainder of the physical exam is noncontributory. Labs Anticoagulation Labs Protime: 11.6 seconds (11/15/22 10:17:00) PT International Ratio: 1 ratio (11/15/22 10:17:00) Last Month Hematology: Hgb: 13.2 (11/15/22) : () WBC: 7.7 (11/15/22) Platelet: 380 (11/15/22) PT International Ratio: 1.0 (11/15/22) Additional - Last Month Basophil %: 0.3 (11/15/22) Basophil, Absolute: 0.0 (11/15/22) Eosinophil %: 4.7 (11/15/22) Eosinophil, Absolute: 0.4 (11/15/22) Hct: 39.2 (11/15/22) Lymphocyte %: 27.9 (11/15/22) Lymphocyte, Absolute: 2.2 (11/15/22) MCH: 33.3 (11/15/22) MCHC: 33.6 (11/15/22) MCV: 99.1 (11/15/22) Monocyte %: 10.0 (11/15/22) Monocyte, Absolute: 0.8 (11/15/22) MPV: 7.4 (11/15/22) Neutrophil %: 57.1 (11/15/22) Neutrophil, Absolute: 4.4 (11/15/22) Protime: 11.6 (11/15/22) RBC: 3.96 (11/15/22) RDW: 14.0 (11/15/22) Assessment/Treatment Plan Image guided left nephroureteral catheter exchange Post Procedure Discharge Plan Patient to be discharged home. _ Future Appointments Appointment Date:11/20/2022 09:00:00 AM Scheduled Provider:FLIP MARTIN MD Location:[facility] Appointment Type:SO OV Appointment Date:01/01/2023 11:30:00 AM Scheduled Provider:FLIP MARTIN MD Location:[facility] Appointment Type:SO OV Follow Up Diagnostic Tests Pending * Urine Culture 11/15/22 * Urine Culture 11/15/22 Future Scheduled Tests Radiology* IR Neph Cath-Neph Ureter W/Guide Left 07/03/22 * IR Neph Cath-Neph Ureter W/Guide Left 08/02/22 * IR Neph Cath-Neph Ureter W/Guide Left 09/02/22 * IR Neph Cath-Neph Ureter W/Guide Left 10/02/22 * IR Neph Cath-Neph Ureter W/Guide Left 11/02/22 * IR Neph Cath-Neph Ureter W/Guide Left 12/03/22 * IR Neph Cath-Neph Ureter W/Guide Left 12/31/22 * IR Neph Cath-Neph Ureter W/Guide Left 01/31/23 * IR Neph Cath-Neph Ureter W/Guide Left 03/02/23 * IR Neph Cath-Neph Ureter W/Guide Left 04/02/23 * IR Neph Cath-Neph Ureter W/Guide Left 05/02/23 * IR Neph Cath-Neph Ureter W/Guide Left 06/02/23 [facility] 01-13-2023 Summary of episode note Discharge Instructions Thank you for allowing [facility] to assist you with your healthcare needs. The following is importantdischarge information regarding your hospital visit. Your Care Team FLIP MARTIN MD What to do next Scheduled Follow-Up Appointments Appointment Type When With Where Contact InformationSO OV 11/20/2022 09:00 AM [facility] [address] [place] [phone] SO OV Follow Up 01/01/2023 11:30 AM FLIP CORRALES MD [facility] [address] [place] [phone] Follow Up Appointments Follow Up with BRITTNI LU When Why: Follow-up as scheduled Where: [address] [place] [address] [place] [address] [phone] Follow Up with Call Physician Referral When Allergies Oranges penicillin Medications Please ask your primary doctor or pharmacist before taking any other medication not listed, including over the counter drugs, herbal medications, vitamins and or supplements as they may interact withyour home medications. What How Much When Why Instructions Last Dose Unchanged acetaminophen (Tylenol 325 mg oral capsule) 650 Milligram by mouth Every 4 hours as needed for Pain, scale 1-3 Unchanged acetaminophen-oxyCODONE (acetaminophen-oxyCODONE 325 mg-5 mg oral tablet) 1 tab(s) by mouth Every 6 hours Cervical cancer Duration: 30 Days Unchanged docusate (Colace 100 mg oral capsule) 1 cap by mouth Two (2) times a day as needed for as needed for constipation Unchanged gabapentin (gabapentin 300 mg oral capsule) 1 cap by mouth Daily at bedtime Cervical cancer Duration: 30 Days Unchanged LORazepam (Ativan 1 mg oral tablet) 1 tab(s) by mouth Three (3) times a day as needed for as needed for anxiety Cervical cancer Anxiety Duration: 30 Days Unchanged meropenem (meropenem 1000 mg intravenous injection) 1,000 Milligram IV Piggyback Every 8 hours Unchanged morphine (MS Contin 30 mg/ 8-12 hrs oral tablet, extended release) 1 tab(s) by mouth Every 12 hours Cervical cancer Duration: 21 Days Unchanged naproxen (naproxen 250 mg oral tablet) 1 tab(s) by mouth Two (2) times a day Unchanged ondansetron (Zofran 4 mg oral tablet) 1 tab(s) by mouth Every 6 hours as needed for Nausea/Vomiting Cervical cancer Unchanged sodium chloride (Normal Saline Flush 0.9% injectable solution) 10 Milliliter IR Drain Every day Please take this list to your next doctor s visit. Bring all medications you take, including over the counter medications, herbals and other supplements with you to your doctor s visit. Patients and families are reminded to discard old lists and to update any records with all medication providers or retail pharmacies. Education Materials SAVANNAH Nephrostomy Tube Exchange Discharge Instructions Interventional Radiology [facility] [address] [place] [id number] The procedure that you had done today is called a percutaneous nephrostomy. A catheter was placed in your back to access the urine collecting system in your kidney. This catheter will drain the urinefrom the affected kidney. You may also urinate in the normal manner from both the affected and unaffected kidney. Your urine may be blood tinged, in the bag and from regular urination, for up to 48 hours. You may have been given IV sedation during your procedure, and a local anesthetic to numb your skin. You may feel some discomfort after the local anesthetic wears off. This should gradually improve over the next several days. Diet: Resume your normal diet. Start with clear liquids; gradually add other foods as tolerated. Drink extra fluids while the catheter is in place (6-8 glasses a day). Activity: Rest for the remainder of the day. Someone must drive you home. Pain Control: Mild back discomfort on the side of the tube placement may occur for the first 24 hours and you mayexperience the feeling of needing to urinate. Tofz-asd-pjbjqoz pain medication should be used for pain or discomfort. Please check with the physician who sent you for this procedure for their specific recommendations. If your pain is not relieved or becomes more severe, notify the physician who sent you for this procedure. If you were sedated for this procedure: Avoid alcoholic beverages for 24 hours after your procedure. Do not drive or operate heavy machinery for 24 hours after your procedure. Do not make any legal decisions for 24 hours after your procedure. Medication: Please resume home medications today as scheduled. Nephrostomy Care: Wash your hands well with soap and water before and after caring for your nephrostomy tube. Keep the skin around the nephrostomy bag dry. If the area does get wet, dry the skin completely. Avoid swimming. You may shower with the nephrostomy bag attached to the skin, sit in a shallow bath, or sponge bathe while the catheter is in place. Be sure to keep the water level below the dressingwhen tub bathing. The physician who sent you here for this procedure should have supplied you with a prescription fornephrostomy supplies. Please refer to the accompanying instructions to fill the prescription or youcan check with your pharmacy of choice and see if they can get these items for you. Change the flexible wafer and the urostomy pouch every week, or as needed if it is leaking. Keep all ports of the urostomy pouch and drainage bag as clean as possible to prevent infection. Empty the drainage bags often. Avoid overfilling. If the nephrostomy tube is needed for an extended amount of time, it is recommended that the tube be replaced by a radiologist. The physician who ordered the nephrostomy tube for you will provide youwith specific instructions. Optional, depending on Radiologist s recommendations: During the day, you may attach the urostomy pouch to a leg bag using extension tubing to make it easier to drain the bag by yourself. At night, you may attach the urostomy pouch to a large night time drainage bag so that the bag will not need emptied as often. When to Seek Medical Care: The tube falls out. Decreased urine output or no urine output. Abnormal bleeding. Foul odor or drainage, redness, swelling, or fever. Worsening pain If you experience any of these issues during the first 24 hours, please follow the instruction below: 8:00 am- 5:00 pm call [phone] After 5:00 pm call [phone] After 24 hours, contact the physician who ordered this procedure for you. Special Instructions: Moderate Conscious Sedation, Adult, Care After These instructions provide you with information about caring for yourself after your procedure. Your health care provider may also give you more specific instructions. Your treatment has been plannedaccording to current medical practices, but problems sometimes occur. Call your health care provider if you have any problems or questions after your procedure. What can I expect after the procedure? After your procedure, it is common: To feel sleepy for several hours. To feel clumsy and have poor balance for several hours. To have poor judgment for several hours. To vomit if you eat too soon. Follow these instructions at home: For at least 24 hours after the procedure: Do not: ? Participate in activities where you could fall or become injured. ? Drive. ? Use heavy machinery. ? Drink alcohol. ? Take sleeping pills or medicines that cause drowsiness. ? Make important decisions or sign legal documents. ? Take care of children on your own. Rest. Eating and drinking Follow the diet recommended by your health care provider. If you vomit: ? Drink water, juice, or soup when you can drink without vomiting. ? Make sure you have little or no nausea before eating solid foods. General instructions Have a responsible adult stay with you until you are awake and alert. Take bbci-jaj-reuheea and prescription medicines only as told by your health care provider. If you smoke, do not smoke without supervision. Keep all follow-up visits as told by your health care provider. This is important. Contact a health care provider if: You keep feeling nauseous or you keep vomiting. You feel light-headed. You develop a rash. You have a fever. Get help right away if: You have trouble breathing. This information is not intended to replace advice given to you by your health care provider. Make sure you discuss any questions you have with your health care provider. Document Released: 08/10/2014 Document Revised: 10/02/2018 Document Reviewed: 02/08/2017 [employer] Patient Education 2020 [employer] Additional Information VACCINATE! IT SAVES LIVES! Members of the community who have not yet received the COVID-19 vaccine and would like to receive it can visit one of [facility] vaccine clinics. There are many vaccine clinic locations within the [facility]. For locations and available times, please visit [email or web address]/. It is important to note that some COVID mobile vaccine clinics are held outdoors and may be canceled in rainy or stormy conditions. To learn more about pediatric vaccinations (ages 5-11), we invite you to visit the [facility] webpage. [email or web address]/[email or web address]-Ashpjaefcsp-[email or web address]-[email or web address]-Uye [email or web address].htmlTo learn more about the COVID-19 vaccine, we invite you to visit the [place] website for a list of frequently asked questions. [email or web address] _[email or web address]-Questions.pdf [facility] Patient Portal Access Instructions: Stay connected with your healthcare team and access your personal medical information anytime with the [facility] Patient Portal.If you would like a full copy of your medical records, please contact the [facility] Medical Records Department, Friday through Friday between 8a.m. and 4:30p.m. Please follow the directions below to access the portal: 1.Access the email account you provided upon registration to the hospital.2.Look for an invitation email from [facility].3.Open the email and access the invitation link: Accept Invitation to [facility]4.Fill in the required quintero to create your account. Sign into [email or web address] with your username and password that you created in the above steps to stay up to date. You can then view a summary of results, a summary of your visits, and the ability to download your summaries to your computer or send the information securely to a physician. Remember that your healthcare information is confidential, so carefully consider who you will allow to register on the [facility] Patient Portal for access to your information. You can also access the [facility] Patient Portal on the [employer]. Simply click on Health Records under [place] and then click on the [employer] logo. HOW TO SAFELY DISPOSE OF PRESCRIPTION MEDICATIONS Please use one of the following methods to safely dispose of your unused medications. 1.Use a drug disposal kit: the drug disposal pouch allows you to safely discard your old and unuseddrugs. Ask your nurse to give you one when you are discharged.2.Visit a local take-back location: Many local pharmacies and police departments have programs that collect old and unwanted prescriptiondrugs. Call your local pharmacy or go to http://Wishabi.ConsumerBell/5J1Xr4c to find one close to you.3.Make use of household items: Use cat litter or old coffee grounds to dispose medications if other options arenot available. Mix your drugs with these household products, seal them in an airtight container andthrow it into the garbage. Call [facility]: [phone] to be sure your drugs can be disposed of in this way. Some medicines may require a different approach.4.Never flush your medications down the toilet. IF YOU HAVE BEEN PRESCRIBED AN OPIOID FOR PAIN If you have been prescribed an opioid (such as hydrocodone, oxycodone or morphine), it is critical to understand the possible side effects and risks of opioid pain medications. Even when taken as directed, opioids can have several side effects including: Tolerance, meaning you might need to take more of a medication for the same pain relief. Nausea, vomiting and/or constipation. Sleepiness, dizziness, dry mouth, confusion, depression or itching. Physical dependence, meaning you have withdrawal symptoms when a medication is stopped, can develop within a few days. KNOW YOUR RESPONSIBILITIES It is important to know exactly how much and how often to take the opioid pain medications you are prescribed. Never take opioids in higher amounts or more often than prescribed. Do not combine opioids with alcohol or other drugs that cause drowsiness, such as benzodiazepines, also known as benzos, including diazepam and alprazolam, muscle relaxants or sleep aids. Never sell or share prescription opioids. This is illegal. Store opioids in a secure place and out of reach of others (including children, family, friends and visitors). The last page of this document has been signed and retained as a CHART COPY. Signatures Patient Education Materials Radiology- Nephrostomy Tube Insertion (CUSTOM) Moderate Conscious Sedation, Adult, Care After Medication Leaflets My discharge plan and instructions have been reviewed and explained to me and I,LALY NAVAS understand my current condition and have read and understand these discharge instructions. I have received a written copy of the plan/instructions. If I have questions, I am aware that I should contact my doctor. 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 Medications were provided and recorded by Radiology nurses. FLUOROSCOPY DOSE AND TYPE OR TIME AND EXPOSURES: Fluoroscopy: Time: 23.8 minutes. Air kerma: 92.0 mGy Number of images: 15 DESCRIPTION OF PROCEDURE: Informed consent was obtained after a detailed explanation of the procedure including risks, benefits, and alternatives. Webster protocol was observed. Sterile gowns, masks, hats and gloves utilized for maximal sterile barrier. 1% lidocaine was used for local anesthesia. A nephrostogram was attempted. Antegrade pyelography revealed an occluded nephroureteral stent. Contrast could only be placed in the renal pelvis initially. Using a series of catheters and guidewires, multiple attempts were made to recanalized the petrified stent without success. An angled glidewire was then advanced along the side of the catheter to the urinary bladder. 9 and 10 Andorran vascular sheath were guided over the catheter in an attempt to release the petrifde catheter without significant success. A 4 x 40 angioplasty balloon was guided along the margins of the catheter and the petrified debris was mechanically released from the ureter. The firmly petrified segment extended to approximately 8 cm above the urinary bladder. The catheter was then readily removed. A new 8 Andorran 24 cm nephroureteral stent was guided into the renal collecting system. The proximal loop was formed within the renal pelvis and the distal loop was formed within the bladder and locked. A follow-up nephrostogram was obtained. Sterile dressings were placed at the access site. The patient was evaluated clinically then discharge. FINDINGS: The nephroureteral stent has become occluded. There was a double loop formed within the renal pelvis on presentation. Injection of contrast revealed opacification of the renal pelvis only. Mechanical released of calcified debris from the catheter lumen was performed using the Amplatz wire and stiff Glidewire. Better opacification of the proximal ureter could then be achieved. After placement of the new catheter, opacification of the bladder could be achieved. The final images reveal successful placement of a new NU stent with opacification of both its proximal and distal ends. The patient tolerated the procedure well IMPRESSION: 1. Left nephrostogram with antegrade pyelography 2. Mechanical release of the petrified catheter from the left ureter using a 4 x 40 angioplasty balloon. 3. Placement of a new 8 Andorran 24 cm nephroureteral stent in the left renal collecting system Interpreted by: Janet Florez Preliminary Report By: Janet Florez Electronically signed By Janet Florez Dictated Date: 11/15/2022 4:52:51 PM Prelim Date: 11/15/2022 5:22:54 PM Sign Date: 11/15/2022 5:22:54 PM Ordering Provider: [facility]01-13-2023 Note IR Procedure Record Summary Primary Physician: Finalized Date/Time: 11/15/22 12:56:45 Pt. Name: LALY NAVAS/Sex: 1990 Female Med Rec #: [id number] Physician: Financial #: [id number] Pt. Type: O Room/Bed: / Admit/Disch: 11/15/22 09:39:00 - Institution: Allergies identified in patient's electronic medical record at time of printing on 11/15/22 Entry 1 Entry 2 Substance Oranges penicillin Reaction Type Allergy Allergy Last Modified By: JAMAL Scott RN Evan 02/03/21 10/04/22 08:25:47 17:13:24 Case Attendance- IR Entry 1 Entry 2 Entry 3 Case Attendee GAUTAM, JANET Metz MD Lindsey, RN Padmini B[employer] Systems Integrator Role Performed Radiologist Procedure Procedure Nurse Scrub Technologist Details Time In 11/15/22 11:14:00 11/15/22 11:05:00 11/15/22 11:05:00 Time Out 11/15/22 12:30:00 11/15/22 12:37:00 11/15/22 12:37:00 Procedure/Preference IR Neph Cath-Neph IR Neph Cath-Neph IR Neph Cath-Neph Card Ureter W/Guide Left SN Ureter W/Guide Left SN Ureter W/Guide Left SN Last Modified By: Karolina Prater Jacque M. Brooks, Jacque M. 11/15/22 12:49:44 11/15/22 12:49:44 11/15/22 12:49:44 Entry 4 Case Attendee Sam Junior Role Performed Circulating Technologist Details Time In 11/15/22 11:05:00 Time Out 11/15/22 12:37:00 Procedure/Preference IR Neph Cath-Neph Card Ureter W/Guide Left SN Last Modified By: Karolina Prater 11/15/22 12:49:44 Radiology Procedures- IR Entry 1 Procedure/Preference IR Neph Cath-Neph Actual Procedure IR NEPH CATH-NEPH Card Ureter W/Guide Left SN URETER W/ GUIDE LEFT SN Primary Procedure Yes Primary Surgeon JANET FLOREZ MD Anesthesia/Sedation Local, IV Sedation Type Additional Procedure Times Start 11/15/22 11:14:00 Stop 11/15/22 12:30:00 Specialty Service SN Radiology Procedure EBL 0 mL Last Modified By: Karolina Prater 11/15/22 12:49:51 Radiology Procedure Details - IR Entry 1 Radiology Sedation Case Times Sedation Start Time 11/15/22 11:10:00 Sedation Stop Time 11/15/22 12:24:00 Sedation Total Time 1 hr 14 min Radiology - Fluid/Drainage Radiology Contrast Contrast Used? Yes Dose 25 mL Medication OMNIPAQUE 300 50ML 10/CT Y-530 Radiology Flouroscopy Fluoroscopy Used? Yes Fluoro Dose (mGy) 92.02 Fluoro Time 23.8 min Radiology Local Local Used? Yes Local Type: lidocaine 1% Local Dose 25cc Radiology Procedure Site Site/Location LT Renal Site Condition No complications Dressing Type Bioclusive 4 X 5, Gauze Technologist Notes 8.5F Boston sponge 4 X 4 Nephroureterostomy stent LT Renal Last Modified By: Karolina Prater 11/15/22 12:52:49 Cultures and Specimens- IR Entry 1 Kind Culture Type Urine Date/Time 11/15/22 11:30:00 Source LT Renal Last Modified By: Sam Junior 11/15/22 11:36:35 General Case Data - IR Entry 1 Case Information Room AH IR 17 Case Level IR Level 2 Wound Class None Specialty SN Radiology Procedure ASA Class None Diagnosis Preop Diagnosis cerival cancer Postop Same As Preop Yes Postop Diagnosis cerival cancer Last Modified By: Sam Junior 11/15/22 11:37:38 Medication Administration- IR Entry 1 Entry 2 Entry 3 Medication Versed Fentanyl Benadryl Time Administered 11/15/22 11:10:00 11/15/22 11:10:00 11/15/22 11:09:00 Route of Admin IVPB IVPB Intravenous Dose 0.5 mg 25 mcg 25 mg Volume VORB * *Verbal Order Read Back (VORB) is required for NON- PHYSICIAN administration of medications. Administered by No No No Physician? Administered by: JAMAL Lindsey RN Deborah E Patton, RN Deborah E Verbal Order Read GAUTAM, JANET Metz MD GAUTAM, JANET Metz MD GAUTAM, JANET Metz MD Back from: Last Modified By: Sam Junior Rad Tech Kathy Patton, RN Deborah E A 11/15/22 11:46:04 A 11/15/22 11:46:04 11/15/22 11:59:40 Entry 4 Entry 5 Entry 6 Medication Versed Fentanyl Versed Time Administered 11/15/22 11:23:00 11/15/22 11:23:00 11/15/22 11:30:00 Route of Admin IVPB IVPB IVPB Dose 0.5 mg 25 mcg 0.5 mg Volume VORB * *Verbal Order Read Back (VORB) is required for NON- PHYSICIAN administration of medications. Administered by No No No Physician? Administered by: JAMAL Lindsey RN Deborah E Patton, RN Deborah E Verbal Order Read JANET FLOREZ MD GAUTAM, JANET Metz MD GAUTAM, JANET Metz MD Back from: Last Modified By: JAMAL Lindsey RN Deborah E Patton, RN Deborah E 11/15/22 11:59:40 11/15/22 11:59:40 11/15/22 11:59:40 Entry 7 Entry 8 Entry 9 Medication Fentanyl Dilaudid Zofran Time Administered 11/15/22 11:30:00 11/15/22 11:36:00 11/15/22 12:04:00 Route of Admin IVPB Intravenous Intravenous Dose 25 mcg 1 mg 4 mg Volume VORB * *Verbal Order Read Back (VORB) is required for NON- PHYSICIAN administration of medications. Administered by No No No Physician? Administered by: JAMAL Lindsey RN Deborah E Patton, RN Deborah E Verbal Order Read JANET FLOREZ MD GAUTAM, JANET TUTTLEN, JANET Metz MD Back from: Last Modified By: JAMAL Lindsey RN Deborah E Patton, RN Deborah E 11/15/22 11:59:40 11/15/22 11:59:40 11/15/22 12:19:31 Entry 10 Medication Toradol Time Administered 11/15/22 12:11:00 Route of Admin Intravenous Dose 30 mg Volume VORB * *Verbal Order Read Back (VORB) is required for NON- PHYSICIAN administration of medications. Administered by No Physician? Administered by: JAMAL Lindsey Verbal Order Read JANET FLOREZ MD Back from: Last Modified By: JAMAL Lindsey 11/15/22 12:19:31 Procedure Case Times- IR Entry 1 Patient In Procedure Patient In OR 11/15/22 11:05:00 Patient Out of OR 11/15/22 12:37:00 Procedure Start/Stop Procedure Start Time 11/15/22 11:14:00 Procedure Stop Time 11/15/22 12:30:00 Last Modified By: Karolina Prater 11/15/22 12:49:41 Immediate Post Procedure Note - IR Entry 1 Immediate Post Yes Findings successful exchange of Procedure Note left nephro-ureteral displayed for catheter Physician to review Closure Technique Closure Technique Other than Primary Last Modified By: JAMAL Lindsey 11/15/22 12:26:51 Immediate Post Procedure Note - IR Signed By: JANET FLOREZ MD 11/15/22 12:26 Allergy Information- IR Entry 1 Allergies Reviewed? Yes Allergies Reviewed Medical Record With Last Modified By: Sam Junior Devika A 11/15/22 11:28:34 Radiology Protocols/Time Out- IR Entry 1 Preprocedure Clinician Verifies Correct patient ID When Clinically Confirmation of correct using name & date Indicated side(s) and site(s), or MRN, Accurate Correct diagnostic and procedure, complete radiology tests Informed Consent, H & P available update immediately prior to procedure, if applicable OR/Procedure Room/Bedside Time 11/15/22 11:14:00 Clinician Verifies Correct patient identity including EMR & records using name and date or medical record number, Accurate procedure consent form, Correct patient position, Necessary equipment is available When Applicable Confirmation correct Team Members JANET FLOREZ MD, side and site marked, Present for Time Out JAMAL Lindsey, Relevant images and Padmini Fairchild Rad results are properly Tech, Sandi Systems Integrator labeled and Devika A appropriately displayed, Confirm/obtain preop antibiotic order., Double verification of sterility indicators complete Instrument Sterility Team Members JANET FLOREZ MD, Verifying Sterility JAMAL Lindsey, Padmini Fairchild Systems Integrator, Bollon Systems Integrator Devika A Procedure IR Neph Cath-Neph Ureter W/Guide Left SN Last Modified By: Sam Junior Devika A 11/15/22 11:31:48 Skin Prep- IR Entry 1 Procedure IR Neph Cath-Neph Ureter W/Guide Left SN Skin Prep Prep Area Back Side Left By Padmini Fairchild Rad Prep Agents Betadine Solution Tech Hair Removal Method N/A Last Modified By: Sam Junior Devika A 11/15/22 11:32:20 Patient Positioning- IR Entry 1 Procedure IR Neph Cath-Neph Body Position OP Prone Ureter W/Guide Left SN Feet Uncrossed? Yes Pressure Points Yes Checked Last Modified By: Sam Junior Tech Devika A 11/15/22 11:32:34 Radiology Procedure Plan - IR Entry 1 Radiology - Nursing Care Plan Outcome Statement The patient Outcome Statement The patient receives demonstrates knowledge Cont. appropriate of the expected medication(s), safely responses to the administered during the operative/invasive perioperative/invasive procedure., The period., The patient is patient's value system, free from signs and lifestyle, ethnicity, symptoms of injury and culture are caused by extraneous considered, respected, objects (equipment, and incorporated in the instrumentation, perioperative plan of sponges, or sharps)., care., The patient is The patient is free free from signs and from signs and symptoms symptoms of infection., of electrical injury., The patient is free The patient is at or from signs and symptoms returning to of injury related to normothermia at the positioning., The conclusion of the patient is free from immediate signs and symptoms of postoperative/invasive chemical injury. period., The patient is free from signs and symptoms of laser injury. Radiology - Action Plan Outcomes Met? Yes Mottler Operator JAMAL Lindsey, Completing Sam Junior Procedure Plan Last Modified By: Sam Junior 11/15/22 11:37:18 Transfer Post Procedure- IR Entry 1 RAD - Transport to Recovery Patient Transported IV Via Portable With Post-op Destination Receiving Transported By JAMAL Lindsey Post Procedure Time Out Double Verification Yes Date/Time Verified 11/15/22 11:05:00 of ID band on patient Completed Verfied ID Band on Sam Junior by Last Modified By: Karolina Prater 11/15/22 12:56:41 Case Comments Finalized By: Karolina Prater Document Signatures Signed By: Karolina Prater 11/15/22 12:56 [id number] Discharge summary Date of Service 11/15/2022 Discharge Diagnosis Bladder cancer Hospital Course unremarkable Allergies Oranges penicillin Consults No qualifying data available. Objective Vitals and Measurements T: 36.8 C (Oral) HR: 66(Monitored) RR: 14 BP: 151/113 SpO2: 100% HT: 167.6 cm WT: 50.0 kg BMI: 17.8 Weight Dosing Weight: 50 kg (11/15/22) Code Status No qualifying data available. Admission Date 11/15/2022 Discharge Date 11/15/2022 Medications Unchanged acetaminophen (Tylenol 325 mg oral capsule)650 Milligram by mouth every 4 hours as needed Pain, scale 1-3. acetaminophen-oxyCODONE (acetaminophen-oxyCODONE 325 mg-5 mg oral tablet)1 tab(s) by mouth every 6 hours for 30 Days. Refills: 0. docusate (Colace 100 mg oral capsule)1 cap by mouth two (2) times a day as needed as needed for constipation. Refills: 2. gabapentin (gabapentin 300 mg oral capsule)1 cap by mouth daily at bedtime for 30 Days. Refills: 3. LORazepam (Ativan 1 mg oral tablet)1 tab(s) by mouth three (3) times a day as needed as needed for anxiety for 30 Days. Refills: 4. meropenem (meropenem 1000 mg intravenous injection)1,000 Milligram IV Piggyback every 8 hours. morphine (MS Contin 30 mg/8-12 hrs oral tablet, extended release)1 tab(s) by mouth every 12 hours for 21 Days. Refills: 0. naproxen (naproxen 250 mg oral tablet)1 tab(s) by mouth two (2) times a day. Refills: 0. ondansetron (Zofran 4 mg oral tablet)1 tab(s) by mouth every 6 hours as needed Nausea/Vomiting. Refills: 1. sodium chloride (Normal Saline Flush 0.9% injectable solution)10 Milliliter IR Drain every day. Refills: 12. Follow Up Follow Up with Call Physician Referral When Follow Up Appointments No qualifying data available. Follow Up Labs/Studies Discharge Labs No Follow-up Labs Discharge Studies No Follow-up Studies Discharge Diet No qualifying data available. Discharge Activity No qualifying data available. Readmission Risk/Palliative Score No qualifying data available. Digitally Signed by JANET FLOREZ MD on 11/15/2022 12:51 PM [id number] Interventional radiology Consult note INTERVENTIONAL RADIOLOGY POST PROCEDURE NOTE DATE: 11/15/2022 12:39:24 NAME: LALY NAVAS Pre-Procedure Diagnosis: _Bladder cancer Post Procedure Diagnosis: Same. Pathology Supervisor: Dr. Caio Florez Procedure: _Nu stent exchange Anesthesia: Local. Findings: Success. _catheter petrified,NU stent, 4 x 40 mm balloon used to break the calcifications Estimated Blood Loss: Minimal (Less Than 10 mL). _ Specimen: None. Complications: None. _ Full report with procedural details to follow and will become available under the Radiology tab of Results Review. Please contact for any questions or concerns. Caio Boyce MD Interventional Radiology IR dept: [phone] Available on Cortext Digitally Signed by JANET FLOREZ MD on 11/15/2022 12:40 PM [facility] [id number] Note Interventional Radiology Focused Preprocedure History/Physical Reason for Visit CERVICAL CA, LAST CHANGE 10/02/22 History of Presenting Illness/Planned IR Procedure Cervical cancer. Last tube change was 10/02/2022 Allergies (2) ActiveReaction OrangesNone Documented penicillinNone Documented Home Medications (10) Active acetaminophen-oxyCODONE 325 mg-5 mg oral tablet 1 tab(s), Oral, q6hr Ativan 1 mg oral tablet 1 mg = 1 tab(s), PRN, Oral, TID Colace 100 mg oral capsule 100 mg = 1 cap(s), PRN, Oral, BID gabapentin 300 mg oral capsule 300 mg = 1 cap(s), Oral, qHS meropenem 1000 mg intravenous injection 1,000 mg, IV Piggyback, q8h MS Contin 30 mg/8-12 hrs oral tablet, extended release 30 mg = 1 tab(s), Oral, q12h naproxen 250 mg oral tablet 250 mg = 1 tab(s), Oral, BID Normal Saline Flush 0.9% injectable solution 0.09 gram(s) = 10 mL, IR Drain, Daily Tylenol 325 mg oral capsule 650 mg, PRN, Oral, q4h Zofran 4 mg oral tablet 4 mg = 1 tab(s), PRN, Oral, q6h Problem List/Past Medical History Acute kidney injury Anxiety Asthma Bradycardia Cervical cancer Complicated UTI (urinary tract infection) DVT prophylaxis Decreased appetite Dehydration History of chemotherapy History of radiation therapy Left flank pain Moderate protein-calorie malnutrition Nausea and vomiting Nephrostomy status Obstructive uropathy Port-A-Cath in place Premature menopause Pyelonephritis Tobacco use Surgical History Nephrostomy with tube drainage: 01/10/21 JJ stent: 11/15/20 Radiation: 06/2020 Cervical biopsy: 2019 Tumor cells, benign: 2001 Cannulation of Portacath Nephrostomy with tube drainage Family History Mother: Asthma; Breast cancer; COPD - Chronic obstructive pulmonary disease; Heart attack; Heart disease; Hypertension; Kidney stone Father: Alcohol abuse; Stroke; Substance abuse Sister: Cancer Grandparent: Diabetes; Stroke Social History Alcohol Risk Assessment: Denies Alcohol Use; Details: Use: Current. Type: Beer. Frequency: 1-2 times per week. Home/Environment Risk Assessment: No Risk; Details: Domestic Concerns: None. Living situation: Home/Independent. Safe place to go: Yes. Lives In: Mobile home, 1st floor bedroom, 1st floor bathroom. Current Home Treatments None. Professional Skilled Services or Special Community Resources None. Financial concerns: No. Marital Status: Unmarried. Nutrition/Health Risk Assessment: No Risk; Details: Type of diet: Regular. Appetite Fair. Eating Difficulties None. Caffeine intake amount: 1 can pop per day. Sexual Details: Sexually active: Yes. First active at age: 18 Years. Current partners: 1. Number of lifetime partners: 7. Self described orientation: Straight or heterosexual. Other contraceptive use: condoms. History of sexual abuse: No. Gender Identity: Identifies as female. Substance Abuse Risk Assessment: Denies Substance Abuse; Details: Use: Never. Tobacco Details: Nicotine Use: 5-9 cigarettes (between 1/4 to 1/2 pack)/day in last 30 days. Type: Cigarettes. Tobacco use per day: 10. Number of years: 10. Started at age: 19 Years. Previous treatment: None. Ready to change: Yes. Physical Exam Vitals: Roohsbhafjr11.8 (09:52) Systolic Blood PressureNo result Diastolic Blood PressureNo result Pulse69 (09:52) OgW108 (09:52) Respiratory Rate14 (09:52) General: Alert, cooperative. _ The remainder of the physical exam is noncontributory. Labs Anticoagulation Labs Protime: 11.6 seconds (11/15/22 10:17:00) PT International Ratio: 1 ratio (11/15/22 10:17:00) Last Month Hematology: Hgb: 13.2 (11/15/22) : () WBC: 7.7 (11/15/22) Platelet: 380 (11/15/22) PT International Ratio: 1.0 (11/15/22) Additional - Last Month Basophil %: 0.3 (11/15/22) Basophil, Absolute: 0.0 (11/15/22) Eosinophil %: 4.7 (11/15/22) Eosinophil, Absolute: 0.4 (11/15/22) Hct: 39.2 (11/15/22) Lymphocyte %: 27.9 (11/15/22) Lymphocyte, Absolute: 2.2 (11/15/22) MCH: 33.3 (11/15/22) MCHC: 33.6 (11/15/22) MCV: 99.1 (11/15/22) Monocyte %: 10.0 (11/15/22) Monocyte, Absolute: 0.8 (11/15/22) MPV: 7.4 (11/15/22) Neutrophil %: 57.1 (11/15/22) Neutrophil, Absolute: 4.4 (11/15/22) Protime: 11.6 (11/15/22) RBC: 3.96 (11/15/22) RDW: 14.0 (11/15/22) Assessment/Treatment Plan Image guided left nephroureteral catheter exchange Post Procedure Discharge Plan Patient to be discharged home. _ Digitally Signed by SIMRAN GRANADOS PA-C on 11/15/2022 10:53 AM Digitally Signed by JANET FLOREZ MD on 11/15/2022 01:56 PM [facility] [id number] Hospital Discharge instructions Patient Education 10/08/2022 16:44:11 Pyelonephritis, Adult, Jybo-xz-Emuu Pyelonephritis, Adult Pyelonephritis is an infection that occurs in the kidney. The kidneys are organs that help clean the blood by moving waste out of the blood and into the pee (urine). This infection can happen quickly, or it can last for a long time. In most cases, it clears up with treatment and does not cause other problems. What are the causes? This condition may be caused by: Germs (bacteria) going from the bladder up to the kidney. This may happen after having a bladder infection. Germs going from the blood to the kidney. What increases the risk? This condition is more likely to develop in: women. Older people. People who have any of these conditions: ?Diabetes. ?Inflammation of the prostate gland (prostatitis), in males. ?Kidney stones or bladder stones. ?Other problems with the kidney or the parts of your body that carry pee from the kidneys to the bladder (ureters). ?Cancer. People who have a small, thin tube (catheter) placed in the bladder. People who are sexually active. Women who use a medicine that kills sperm (spermicide) to prevent . People who have had a prior urinary tract infection (UTI). What are the signs or symptoms? Symptoms of this condition include: Peeing often. A strong urge to pee right away. Burning or stinging when peeing. Belly pain. Back pain. Pain in the side (flank area). Fever or chills. Blood in the pee, or dark pee. Feeling sick to your stomach (nauseous) or throwing up (vomiting). How is this treated? This condition may be treated by: Taking antibiotic medicines by mouth (orally). Drinking enough fluids. If the infection is bad, you may need to stay in the hospital. You may be given antibiotics and fluids that are put directly into a vein through an IV tube. In some cases, other treatments may be needed. Follow these instructions at home: Medicines Take your antibiotic medicine as told by your doctor. Do not stop taking the antibiotic even if youstart to feel better. Take edum-lsi-gdollbr and prescription medicines only as told by your doctor. General instructions Drink enough fluid to keep your pee pale yellow. Avoid caffeine, tea, and carbonated drinks. Pee (urinate) often. Avoid holding in pee for long periods of time. Pee before and after sex. After pooping (having a bowel movement), women should wipe from front to back. Use each tissue onlyonce. Keep all follow-up visits as told by your doctor. This is important. Contact a doctor if: You do not feel better after 2 days. Your symptoms get worse. You have a fever. Get help right away if: You cannot take your medicine or drink fluids as told. You have chills and shaking. You throw up. You have very bad pain in your side or back. You feel very weak or you pass out (faint). Summary Pyelonephritis is an infection that occurs in the kidney. In most cases, this infection clears up with treatment and does not cause other problems. Take your antibiotic medicine as told by your doctor. Do not stop taking the antibiotic even if youstart to feel better. Drink enough fluid to keep your pee pale yellow. This information is not intended to replace advice given to you by your health care provider. Make sure you discuss any questions you have with your health care provider. Document Released: 11/27/2005 Document Revised: 08/24/2019 Document Reviewed: 08/24/2019 [employer] Patient Education 2020 [employer]. Follow Up Care 09/30/2022 10:05:59 With:[facility] Address: When: Unknown Comments:[facility] to provide iv pole, tubing, and medication for iv antibiotics With:FLIP MARTIN Address: [address] [place] [address] [place] [address]- Business (1) When: Unknown Comments:Please call the office to schedule a follow up appointment within 2 weeks With:[facility] Address:Unknown When:10/11/2022 09:00:00 Comments:Outpatient port care dressing change and labs [facility] 12-06-2022 Note Discharge Instructions Thank you for allowing [facility] to assist you with your healthcare needs. The following is importantdischarge information regarding your hospital visit. Your Care Team FLIP MARTIN MD Your Diagnosis Pyelonephritis Cervical cancer Obstructive uropathy Asthma Decreased appetite Tobacco use Anxiety Flank pain What to do next Scheduled Follow-Up Appointments Appointment Type When With Where Contact InformationSO OV Follow Up 01/01/2023 11:30 AM EST FLIP MARTIN MD [facility] [address] [place] [id number] Follow Up Appointments Follow Up with [facility] When 10/11/2022 09:00 AM EST Why: Outpatient port care dressing change and labs Follow Up with [facility] When Why: [facility] to provide iv pole, tubing, and medication for iv antibiotics Where: Follow Up with FLIP MARTIN When Why: Please call the office to schedule a follow up appointment within 2 weeks Where: [address] [place] [address] Gynecologic Oncology [place] [phone] [facility] (1) The Following Activity and Diet Have Been Ordered for You Discharge Activity - Ordered -- NO activity restrictions, 10/08/22 15:03:00 EST Discharge Diet - Ordered -- No changes were made to your diet during your hospital stay. Please resume your pre hospitalization diet on discharge., 10/08/22 15:03:00 EST The Following Equipment Has Been Ordered for You Discharge Home Equipment Discharge Wound Care - Ordered -- Call the office if exp a temp >100.4, increase in pain, increase in bleeding/discharge, or increase in odors, 10/08/22 15:03:00 EST The Following Treatments Have Been Ordered for You Discharge Labs No qualifying data available. Discharge Radiology No qualifying data available. Other Therapies No qualifying data available. Post Acute Orders No qualifying data available. Someone Will Contact You Regarding These Home Health Referrals No home referrals have been ordered for you. No one will call you. Allergies Oranges penicillin Medications Please ask your primary doctor or pharmacist before taking any other medication not listed, including over the counter drugs, herbal medications, vitamins and or supplements as they may interact withyour home medications. What How Much When Why Instructions Last Dose New docusate (Colace 100 mg oral capsule) 1 cap by mouth Two (2) times a day as needed for as needed for constipation Refills: 2 Pickup at [facility] New dronabinol (Marinol 2.5 mg oral capsule) 1 cap by mouth Two (2) times a day Cervical cancer Decreased appetite Duration: 21 Days Pickup at [facility] New gabapentin (gabapentin 300 mg oral capsule) 1 cap by mouth Daily at bedtime Cervical cancer Duration: 30 Days Refills: 3 Pickup at [facility] New meropenem (meropenem 1000 mg intravenous injection) 1,000 Milligram IV Piggyback Every 8 hours New morphine (MS Contin 30 mg/ 8-12 hrs oral tablet, extended release) 1 tab(s) by mouth Every 12 hours Cervical cancer Duration: 21 Days Pickup at [facility] New oxyCODONE (oxyCODONE 10 mg oral tablet ( IMMEDIATE release )) 1 tab(s) by mouth Every 4 hours as needed for abdominal discomfort Cervical cancer Duration: 21 Days Pickup at [facility] Unchanged acetaminophen (Tylenol 325 mg oral capsule) 650 Milligram by mouth Every 4 hours as needed for Pain, scale 1-3 Unchanged LORazepam (Ativan 1 mg oral tablet) 1 tab(s) by mouth Three (3) times a day as needed for as needed for anxiety Cervical cancer Anxiety Duration: 30 Days Unchanged naproxen (naproxen 250 mg oral tablet) 1 tab(s) by mouth Two (2) times a day Unchanged ondansetron (Zofran 4 mg oral tablet) 1 tab(s) by mouth Every 6 hours as needed for Nausea/Vomiting Duration: 30 Days Take 20-30 minutes prior to taking pain medication Pickup at [facility] Unchanged sodium chloride (Normal Saline Flush 0.9% injectable solution) 10 Milliliter IR Drain Every day Pickup at [facility] Pharmacy Information [facility]: [address] [place] [phone] [facility]: [address] [place] [phone] What How Much When Why Comments Stop Taking acetaminophen-oxyCODONE (acetaminophen-oxyCODONE 325 mg-5 mg oral tablet) 1 tab(s) by mouth Every 6 hours Cervical cancer Duration: 30 Days Stop Taking lidocaine topical (lidocaine 5% topical patch) 1 patch(es) Topical Once a day remove patches after 12 hours Stop Taking promethazine (promethazine 12.5 mg rectal suppository) 1 suppository(ies) in the rectum Every 6 hours as needed for for nausea/vomiting Please take this list to your next doctor s visit. Bring all medications you take, including over the counter medications, herbals and other supplements with you to your doctor s visit. Patients and families are reminded to discard old lists and to update any records with all medication providers or retail pharmacies. Education Materials Pyelonephritis, Adult Pyelonephritis is an infection that occurs in the kidney. The kidneys are organs that help clean the blood by moving waste out of the blood and into the pee (urine). This infection can happen quickly, or it can last for a long time. In most cases, it clears up with treatment and does not cause other problems. What are the causes? This condition may be caused by: Germs (bacteria) going from the bladder up to the kidney. This may happen after having a bladder infection. Germs going from the blood to the kidney. What increases the risk? This condition is more likely to develop in: women. Older people. People who have any of these conditions: ? Diabetes. ? Inflammation of the prostate gland (prostatitis), in males. ? Kidney stones or bladder stones. ? Other problems with the kidney or the parts of your body that carry pee from the kidneys to the bladder (ureters). ? Cancer. People who have a small, thin tube (catheter) placed in the bladder. People who are sexually active. Women who use a medicine that kills sperm (spermicide) to prevent . People who have had a prior urinary tract infection (UTI). What are the signs or symptoms? Symptoms of this condition include: Peeing often. A strong urge to pee right away. Burning or stinging when peeing. Belly pain. Back pain. Pain in the side (flank area). Fever or chills. Blood in the pee, or dark pee. Feeling sick to your stomach (nauseous) or throwing up (vomiting). How is this treated? This condition may be treated by: Taking antibiotic medicines by mouth (orally). Drinking enough fluids. If the infection is bad, you may need to stay in the hospital. You may be given antibiotics and fluids that are put directly into a vein through an IV tube. In some cases, other treatments may be needed. Follow these instructions at home: Medicines Take your antibiotic medicine as told by your doctor. Do not stop taking the antibiotic even if youstart to feel better. Take gzku-rap-xvvirlo and prescription medicines only as told by your doctor. General instructions Drink enough fluid to keep your pee pale yellow. Avoid caffeine, tea, and carbonated drinks. Pee (urinate) often. Avoid holding in pee for long periods of time. Pee before and after sex. After pooping (having a bowel movement), women should wipe from front to back. Use each tissue onlyonce. Keep all follow-up visits as told by your doctor. This is important. Contact a doctor if: You do not feel better after 2 days. Your symptoms get worse. You have a fever. Get help right away if: You cannot take your medicine or drink fluids as told. You have chills and shaking. You throw up. You have very bad pain in your side or back. You feel very weak or you pass out (faint). Summary Pyelonephritis is an infection that occurs in the kidney. In most cases, this infection clears up with treatment and does not cause other problems. Take your antibiotic medicine as told by your doctor. Do not stop taking the antibiotic even if youstart to feel better. Drink enough fluid to keep your pee pale yellow. This information is not intended to replace advice given to you by your health care provider. Make sure you discuss any questions you have with your health care provider. Document Released: 11/27/2005 Document Revised: 08/24/2019 Document Reviewed: 08/24/2019 [employer] Patient Education 2020 [employer] Additional Information VACCINATE! IT SAVES LIVES! Members of the community who have not yet received the COVID-19 vaccine and would like to receive it can visit one of [facility] vaccine clinics. There are many vaccine clinic locations within the [facility]. For locations and available times, please visit [email or web address] It is important to note that some COVID mobile vaccine clinics are held outdoors and may be canceled in rainy or stormy conditions. To learn more about pediatric vaccinations (ages 5-11), we invite you to visit the [facility] webpage. [email or web address] learn more about the COVID-19 vaccine, we invite you to visit the [facility] website for a list of frequently asked questions. [email or web address] [facility] [employer] Patient Portal Access Instructions: Stay connected with your healthcare team and access your personal medical information anytime with the [facility] Patient Portal.If you would like a full copy of your medical records, please contact the [facility] Medical Records Department, Friday through Friday between 8a.m. and 4:30p.m. Please follow the directions below to access the portal: 1.Access the email account you provided upon registration to the [facility].2.Look for an invitation email from [facility].3.Open the email and access the invitation link: Accept Invitation to [facility]4.Fill in the required quintero to create your account. Sign into [email or web address] with your username and password that you created in the above steps to stay up to date. You can then view a summary of results, a summary of your visits, and the ability to download your summaries to your computer or send the information securely to a physician. Remember that your healthcare information is confidential, so carefully consider who you will allow to register on the [facility] [employer] Patient Portal for access to your information. You can also access the [facility] [employer] Patient Portal on the Laguo joya. Simply click on Health Records under [place] and then click on the [facility] logo. HOW TO SAFELY DISPOSE OF PRESCRIPTION MEDICATIONS Please use one of the following methods to safely dispose of your unused medications. 1.Use a drug disposal kit: the drug disposal pouch allows you to safely discard your old and unuseddrugs. Ask your nurse to give you one when you are discharged.2.Visit a local take-back location: Many local pharmacies and police departments have programs that collect old and unwanted prescriptiondrugs. Call your local pharmacy or go to http://Wishabi.[employer]Bell/9X6Si2f to find one close to you.3.Make use of household items: Use cat litter or old coffee grounds to dispose medications if other options arenot available. Mix your drugs with these household products, seal them in an airtight container andthrow it into the garbage. Call [facility]: [phone] to be sure your drugs can be disposed of in this way. Some medicines may require a different approach.4.Never flush your medications down the toilet. IF YOU HAVE BEEN PRESCRIBED AN OPIOID FOR PAIN If you have been prescribed an opioid (such as hydrocodone, oxycodone or morphine), it is critical to understand the possible side effects and risks of opioid pain medications. Even when taken as directed, opioids can have several side effects including: Tolerance, meaning you might need to take more of a medication for the same pain relief. Nausea, vomiting and/or constipation. Sleepiness, dizziness, dry mouth, confusion, depression or itching. Physical dependence, meaning you have withdrawal symptoms when a medication is stopped, can develop within a few days. KNOW YOUR RESPONSIBILITIES It is important to know exactly how much and how often to take the opioid pain medications you are prescribed. Never take opioids in higher amounts or more often than prescribed. Do not combine opioids with alcohol or other drugs that cause drowsiness, such as benzodiazepines, also known as benzos, including diazepam and alprazolam, muscle relaxants or sleep aids. Never sell or share prescription opioids. This is illegal. Store opioids in a secure place and out of reach of others (including children, family, friends and visitors). The last page of this document has been signed and retained as a CHART COPY. Signatures Patient Education Materials Pyelonephritis, Adult, Exxu-si-Nxkb Medication Leaflets My discharge plan and instructions have been reviewed and explained to me and I,LALY NAVAS understand my current condition and have read and understand these discharge instructions. I have received a written copy of the plan/instructions. If I have questions, I am aware that I should contact my doctor. 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 Subjective Pt seen and examined. Tearful overnight, states she had difficulty with nursing staff. She states that her pain has significantly improved on her current pain regimen. She has needed less of the IV Dilaudid and has expressed a wish to go home today. No fevers, chills, chest pain, SOB, or calf pain. Objective Vitals and Measurements T: 36.8 C (Oral) HR: 86 RR: 16 BP: 94/69 SpO2: 97% Intake and Output 7AM Yesterday to 7AM Today Intake and Output (Last 24 hours) Intake Oral Intake 1280.00 Output Urine Voided 0.00 Urostomy Output: 1725.00 Stool Count 0.00 Urine Count 1.00 Emesis Count 1.00 Total Summary Total Intake 1280.00 Total Output 1725.00 Fluid Balance -445.00 Physical Exam General: A&Ox3, no apparent distress, tearful Resp: clear to auscultation bilaterally CV: normal rate and rhythm Abdomen: Soft, mildly tender, nonrigid, no peritoneal signs, positive bowel sounds throughout. Pelvis: No signs of active vaginal bleeding Ext: No lower extremity edema. No cyanosis. Negative Homans sign Spine: Left CVA tenderness resolved, No leaking at nephrostomy site, no erythema, swelling. Minimaltenderness around the site. Nephrostomy bag with clear urine at bedside Weight Dosing Weight: 50.4 kg (09/30/22) Dosing Weight: 50.4 kg (09/30/22) Medications Medications (17) Active Scheduled: (13) docusate sodium 100 mg Capsule 100 mg 1 cap(s), Oral, BID dronabinol 2.5 mg capsule 2.5 mg 1 cap(s), Oral, BID gabapentin 300 mg Capsule 300 mg 1 cap(s), Oral, qHS heparin 5,000 units/mL (1 mL) vial 5,000 unit(s) 1 mL, Subcutaneous, q8h LORAZEPam 1 mg Tablet 1 mg 1 tab(s), Oral, TID meropenem 1,000 mg, IV Piggyback, q8h morphine 30 mg ER tablet 30 mg 1 tab(s), Oral, q12h Nicoderm patch REMOVAL 1 EA, Miscellaneous, Daily nicotine 7 mg/24 hr ER patch 7 mg 1 patch(es), Transdermal, Daily oxycodone 5 mg tablet (immediate release) 10 mg 2 tab(s), Oral, q4h pantoprazole 40 mg EC tablet 40 mg 1 tab(s), Oral, qDayAC sodium chloride 0.9% 10 ml syringe maddie flush 0.09 gram(s) 10 mL, IR Drain, Daily sodium chloride 0.9% 10 ml syringe maddie flush 10 mL, IR Drain, q8h Continuous: (0) PRN: (4) acetaminophen 325 mg Tablet 650 mg 2 tab(s), Oral, q4h hydromorphone 1 mg/mL (1mL) INJ 1 mg 1 mL, IV Push, q2h naloxone 0.4 mg/mL (1mL) vial 0.2 mg 0.5 mL, IV Push, AsDirected ondansetron 2 mg/ 1 mL 2 mL INJ 4 mg 2 mL, IV Push, q4hr Lab Results 10/07 05:46 WBC: 5.8 Hgb: 12.1 Hct: 36.4 Platelet: 378 Neutrophil %: 50.2 Glucose Level: 88 Sodium Level: 141 Potassium Level: 4.3 BUN: 6.0 L Creatinine Lvl (s): 0.75 Imaging Results and [address]ostics CT Urogram Result Date: October 05, 2022 Verified By: SCOOBY JOSE MD CLINICAL STATEMENT: IMPRESSION: Mild circumferential bladder wall thickening with surrounding perivesicularhaziness, nonspecific although can be seen in the cystitis. Asymmetric leftperiureteral fat stranding which is favored to be related to thenephroureteral stent although correlate clinically. Stable left percutaneous nephrostomy tube in interval placement of a leftdouble-J stent. Stable prominent non pathologically enlarged left para-aortic lymph nodes.Attention on follow-up advised. RECOMMENDATIONS:Unavailable NM Kidney Diuretic Result Date: October 03, 2022 Verified By: GONZALEZ MCRAE DO CLINICAL STATEMENT: IMPRESSION: 1. Prompt left renal perfusion, however, with diminished corticalaccumulation and diminutive size of the left kidney. Prompt excretion andclearance, both through the left ureter and nephrostomy tube, withoutevidence of mechanical obstruction.2. Normal right renal perfusion, cortical accu mulation, and excretion,without evidence of mechanical obstruction.3. LEFT:RIGHT Differential Function (%): 27: 73 IR Neph Cath-Neph Ureter w/Guide Left Result Date: October 02, 2022 Verified By: JANET FLOREZ MD CLINICAL STATEMENT: IMPRESSION: 1. Successful placement of a new 8 [place] 26 cm left nephroureteral stent. 2. Left nephrostogram and antegrade pyelography Assessment/Plan Pyelonephritis - Directly admitted for abdominal pain and vast array of urinary symptoms. Pain is improving, remained afebrile, vitals stable - Left Nephrostomy tube in place since 2019. Last IR nephrostomy tube exchange 08/14/2022 - Recurrent history of complicated urinary tract infection with ESBL / E. coli / Enterococcus / Klebsiella pneumonia sensitive to Meropenem, Imipenem, Ertapenem, Gentamicin - Last admission on 08/08/22 she was treated with Meropenem and transitioned to PO Macrobid - Nephrostomy UOP ranging from 250-300 cc - Continue Meropenem 1 g q8hrs - Urinalysis: large blood, large protein, large LE. urine culture from left nephrostomy tube pending - UA (Clean catch) -15 ketone, Mod blood, 100 protein, Mod LE, 25-50WBC, 2+ bacteria, 25-50 RBC UCx p - Blood culture NGTD - MIVF weight based, 90 ml/hr - Strict I's and O's - s/p IR Nephrostomy exchange on 10/02/22 -Urine cx NGTD. Repeat obtained. -IV Abx per ID. Pt on Meropenem. -UOP: L neph tube: 1475 /24hrs. History of cervical cancer - Stage IIIB SCC of cervix - S/p Chemoradiation, currently in remission -Recent CT 08/02/22 unremarkable for signs of cancer recurrence -Recent Pap smear (07/15) negative for cervical dysplasia, however positive for HPV. For 6 months follow up per Dr. Martin's last note - Port-A-Cath in place -Consider repeat CT Abd/Pelvis. Will discuss with Dr. Martin. -NM Renal scan showed no obstructive symptoms of bilateral kidneys. Differential of Renal function 27/73. -Renal function Left:right, 27:73%. -Current Pain management: Dilaudid 1 mg IV for breakthrough q 2hr, 30 mg MS Contin BID, Gabapentin 300 mg qHS. Oxycodone 10 mg q4hr. Tobacco - Daily nicotine patch Anxiety / Depression - Pt has had SI to multiple SSRIs. We discussed her trauma history yesterday and I asked if she would like for us to reach out to psychiatry. Pt was seen, but did not think her visit was productive. She has requested we cancel out consultation. Asthma -Pt doing well, will continue to monitor. Obstructive uropathy s/p Left Nephrostomy tube - Initially placed in 2019. - s/p exchange on 10/02/22 Poor appetite, improving - MIVF weight based - Nutrition consulted -Marinol started. Admit to regular floor Condition: Stable Vitals: q4hr Activity: Ambulate Diet: Regular IVF: HLIV DVT Prophylaxis: SCDs, Heparin Consults: IR Patient is a 31 yo woman with a history of stage IIIB cervical cancer s/p chemoradiation,has a history obstructive uropathy with left nephrostomy tube in place; admitted for abdominal pain, urinary symptoms concerning for pyelonephritis. Disposition: Continue inpatient management for pain control. Pt would like to go home today. She feels comfortable with self administration of Antibiotics. Coordinating home care with social work. Will discuss discharge planning with Dr. Martin. Digitally Signed by DILLAN KUMAR MD on 10/08/2022 05:52 AM [facility] [id number] Note Date of Service 10/08/22 Chief Complaint Abdominal pain Difficulty urinating. Subjective Pt seen and examined. Tearful overnight, states she had difficulty with nursing staff. She states that her pain has significantly improved on her current pain regimen. She has needed less of the IV Dilaudid and has expressed a wish to go home today. No fevers, chills, chest pain, SOB, or calf pain. Objective Vitals and Measurements T: 36.8 C (Oral) HR: 86 RR: 16 BP: 94/69 SpO2: 97% Intake and Output 7AM Yesterday to 7AM Today Intake and Output (Last 24 hours) Intake Oral Intake 1280.00 Output Urine Voided 0.00 Urostomy Output: 1725.00 Stool Count 0.00 Urine Count 1.00 Emesis Count 1.00 Total Summary Total Intake 1280.00 Total Output 1725.00 Fluid Balance -445.00 Physical Exam General: A&Ox3, no apparent distress, tearful Resp: clear to auscultation bilaterally CV: normal rate and rhythm Abdomen: Soft, mildly tender, nonrigid, no peritoneal signs, positive bowel sounds throughout. Pelvis: No signs of active vaginal bleeding Ext: No lower extremity edema. No cyanosis. Negative Homans sign Spine: Left CVA tenderness resolved, No leaking at nephrostomy site, no erythema, swelling. Minimaltenderness around the site. Nephrostomy bag with clear urine at bedside Weight Dosing Weight: 50.4 kg (09/30/22) Dosing Weight: 50.4 kg (09/30/22) Medications Medications (17) Active Scheduled: (13) docusate sodium 100 mg Capsule 100 mg 1 cap(s), Oral, BID dronabinol 2.5 mg capsule 2.5 mg 1 cap(s), Oral, BID gabapentin 300 mg Capsule 300 mg 1 cap(s), Oral, qHS heparin 5,000 units/mL (1 mL) vial 5,000 unit(s) 1 mL, Subcutaneous, q8h LORAZEPam 1 mg Tablet 1 mg 1 tab(s), Oral, TID meropenem 1,000 mg, IV Piggyback, q8h morphine 30 mg ER tablet 30 mg 1 tab(s), Oral, q12h Nicoderm patch REMOVAL 1 EA, Miscellaneous, Daily nicotine 7 mg/24 hr ER patch 7 mg 1 patch(es), Transdermal, Daily oxycodone 5 mg tablet (immediate release) 10 mg 2 tab(s), Oral, q4h pantoprazole 40 mg EC tablet 40 mg 1 tab(s), Oral, qDayAC sodium chloride 0.9% 10 ml syringe mdadie flush 0.09 gram(s) 10 mL, IR Drain, Daily sodium chloride 0.9% 10 ml syringe maddie flush 10 mL, IR Drain, q8h Continuous: (0) PRN: (4) acetaminophen 325 mg Tablet 650 mg 2 tab(s), Oral, q4h hydromorphone 1 mg/mL (1mL) INJ 1 mg 1 mL, IV Push, q2h naloxone 0.4 mg/mL (1mL) vial 0.2 mg 0.5 mL, IV Push, AsDirected ondansetron 2 mg/ 1 mL 2 mL INJ 4 mg 2 mL, IV Push, q4hr Lab Results 10/07 05:46 WBC: 5.8 Hgb: 12.1 Hct: 36.4 Platelet: 378 Neutrophil %: 50.2 Glucose Level: 88 Sodium Level: 141 Potassium Level: 4.3 BUN: 6.0 L Creatinine Lvl (s): 0.75 Imaging Results and [address] CT Urogram Result Date: October 05, 2022 Verified By: SCOOBY JOSE MD CLINICAL STATEMENT: IMPRESSION: Mild circumferential bladder wall thickening with surrounding perivesicularhaziness, nonspecific although can be seen in the cystitis. Asymmetric leftperiureteral fat stranding which is favored to be related to thenephroureteral stent although correlate clinically. Stable left percutaneous nephrostomy tube in interval placement of a leftdouble-J stent. Stable prominent non pathologically enlarged left para-aortic lymph nodes.Attention on follow-up advised. RECOMMENDATIONS:Unavailable NM Kidney Diuretic Result Date: October 03, 2022 Verified By: GONZALEZ MCRAE DO CLINICAL STATEMENT: IMPRESSION: 1. Prompt left renal perfusion, however, with diminished corticalaccumulation and diminutive size of the left kidney. Prompt excretion andclearance, both through the left ureter and nephrostomy tube, withoutevidence of mechanical obstruction.2. Normal right renal perfusion, cortical accu mulation, and excretion,without evidence of mechanical obstruction.3. LEFT:RIGHT Differential Function (%): 27: 73 IR Neph Cath-Neph Ureter w/Guide Left Result Date: October 02, 2022 Verified By: JANET FLOREZ MD CLINICAL STATEMENT: IMPRESSION: 1. Successful placement of a new 8 [place] 26 cm left nephroureteral stent. 2. Left nephrostogram and antegrade pyelography Assessment/Plan Pyelonephritis - Directly admitted for abdominal pain and vast array of urinary symptoms. Pain is improving, remained afebrile, vitals stable - Left Nephrostomy tube in place since 2019. Last IR nephrostomy tube exchange 08/14/2022 - Recurrent history of complicated urinary tract infection with ESBL / E. coli / Enterococcus / Klebsiella pneumonia sensitive to Meropenem, Imipenem, Ertapenem, Gentamicin - Last admission on 08/08/22 she was treated with Meropenem and transitioned to PO Macrobid - Nephrostomy UOP ranging from 250-300 cc - Continue Meropenem 1 g q8hrs - Urinalysis: large blood, large protein, large LE. urine culture from left nephrostomy tube pending - UA (Clean catch) -15 ketone, Mod blood, 100 protein, Mod LE, 25-50WBC, 2+ bacteria, 25-50 RBC UCx p - Blood culture NGTD - MIVF weight based, 90 ml/hr - Strict I's and O's - s/p IR Nephrostomy exchange on 10/02/22 -Urine cx NGTD. Repeat obtained. -IV Abx per ID. Pt on Meropenem. -UOP: L neph tube: 1475 /24hrs. History of cervical cancer - Stage IIIB SCC of cervix - S/p Chemoradiation, currently in remission -Recent CT 08/02/22 unremarkable for signs of cancer recurrence -Recent Pap smear (07/15) negative for cervical dysplasia, however positive for HPV. For 6 months follow up per Dr. Martin's last note - Port-A-Cath in place -Consider repeat CT Abd/Pelvis. Will discuss with Dr. Martin. -NM Renal scan showed no obstructive symptoms of bilateral kidneys. Differential of Renal function 27/73. -Renal function Left:right, 27:73%. -Current Pain management: Dilaudid 1 mg IV for breakthrough q 2hr, 30 mg MS Contin BID, Gabapentin 300 mg qHS. Oxycodone 10 mg q4hr. Tobacco - Daily nicotine patch Anxiety / Depression - Pt has had SI to multiple SSRIs. We discussed her trauma history yesterday and I asked if she would like for us to reach out to psychiatry. Pt was seen, but did not think her visit was productive. She has requested we cancel out consultation. Asthma -Pt doing well, will continue to monitor. Obstructive uropathy s/p Left Nephrostomy tube - Initially placed in 2019. - s/p exchange on 10/02/22 Poor appetite, improving - MIVF weight based - Nutrition consulted -Marinol started. Admit to regular floor Condition: Stable Vitals: q4hr Activity: Ambulate Diet: Regular IVF: HLIV DVT Prophylaxis: SCDs, Heparin Consults: IR Patient is a 31 yo woman with a history of stage IIIB cervical cancer s/p chemoradiation,has a history obstructive uropathy with left nephrostomy tube in place; admitted for abdominal pain, urinary symptoms concerning for pyelonephritis. Disposition: Continue inpatient management for pain control. Pt would like to go home today. She feels comfortable with self administration of Antibiotics. Coordinating home care with social work. Will discuss discharge planning with Dr. Martin. Digitally Signed by DILLAN KUMAR MD on 10/08/2022 05:52 AM [facility] [id number] Note Date of Service 10/08/22 Chief Complaint Abdominal pain Difficulty urinating. Subjective Pt seen and examined. Tearful overnight, states she had difficulty with nursing staff. She states that her pain has significantly improved on her current pain regimen. She has needed less of the IV Dilaudid and has expressed a wish to go home today. No fevers, chills, chest pain, SOB, or calf pain. Objective Vitals and Measurements T: 36.8 C (Oral) HR: 86 RR: 16 BP: 94/69 SpO2: 97% Intake and Output 7AM Yesterday to 7AM Today Intake and Output (Last 24 hours) Intake Oral Intake 1280.00 Output Urine Voided 0.00 Urostomy Output: 1725.00 Stool Count 0.00 Urine Count 1.00 Emesis Count 1.00 Total Summary Total Intake 1280.00 Total Output 1725.00 Fluid Balance -445.00 Physical Exam General: A&Ox3, no apparent distress, tearful Resp: clear to auscultation bilaterally CV: normal rate and rhythm Abdomen: Soft, mildly tender, nonrigid, no peritoneal signs, positive bowel sounds throughout. Pelvis: No signs of active vaginal bleeding Ext: No lower extremity edema. No cyanosis. Negative Homans sign Spine: Left CVA tenderness resolved, No leaking at nephrostomy site, no erythema, swelling. Minimaltenderness around the site. Nephrostomy bag with clear urine at bedside Weight Dosing Weight: 50.4 kg (09/30/22) Dosing Weight: 50.4 kg (09/30/22) Medications Medications (17) Active Scheduled: (13) docusate sodium 100 mg Capsule 100 mg 1 cap(s), Oral, BID dronabinol 2.5 mg capsule 2.5 mg 1 cap(s), Oral, BID gabapentin 300 mg Capsule 300 mg 1 cap(s), Oral, qHS heparin 5,000 units/mL (1 mL) vial 5,000 unit(s) 1 mL, Subcutaneous, q8h LORAZEPam 1 mg Tablet 1 mg 1 tab(s), Oral, TID meropenem 1,000 mg, IV Piggyback, q8h morphine 30 mg ER tablet 30 mg 1 tab(s), Oral, q12h Nicoderm patch REMOVAL 1 EA, Miscellaneous, Daily nicotine 7 mg/24 hr ER patch 7 mg 1 patch(es), Transdermal, Daily oxycodone 5 mg tablet (immediate release) 10 mg 2 tab(s), Oral, q4h pantoprazole 40 mg EC tablet 40 mg 1 tab(s), Oral, qDayAC sodium chloride 0.9% 10 ml syringe maddie flush 0.09 gram(s) 10 mL, IR Drain, Daily sodium chloride 0.9% 10 ml syringe maddie flush 10 mL, IR Drain, q8h Continuous: (0) PRN: (4) acetaminophen 325 mg Tablet 650 mg 2 tab(s), Oral, q4h hydromorphone 1 mg/mL (1mL) INJ 1 mg 1 mL, IV Push, q2h naloxone 0.4 mg/mL (1mL) vial 0.2 mg 0.5 mL, IV Push, AsDirected ondansetron 2 mg/ 1 mL 2 mL INJ 4 mg 2 mL, IV Push, q4hr Lab Results 10/07 05:46 WBC: 5.8 Hgb: 12.1 Hct: 36.4 Platelet: 378 Neutrophil %: 50.2 Glucose Level: 88 Sodium Level: 141 Potassium Level: 4.3 BUN: 6.0 L Creatinine Lvl (s): 0.75 Imaging Results and [address] CT Urogram Result Date: October 05, 2022 Verified By: SCOOBY JOSE MD CLINICAL STATEMENT: IMPRESSION: Mild circumferential bladder wall thickening with surrounding perivesicularhaziness, nonspecific although can be seen in the cystitis. Asymmetric leftperiureteral fat stranding which is favored to be related to thenephroureteral stent although correlate clinically. Stable left percutaneous nephrostomy tube in interval placement of a leftdouble-J stent. Stable prominent non pathologically enlarged left para-aortic lymph nodes.Attention on follow-up advised. RECOMMENDATIONS:Unavailable NM Kidney Diuretic Result Date: October 03, 2022 Verified By: GONZALEZ MCRAE DO CLINICAL STATEMENT: IMPRESSION: 1. Prompt left renal perfusion, however, with diminished corticalaccumulation and diminutive size of the left kidney. Prompt excretion andclearance, both through the left ureter and nephrostomy tube, withoutevidence of mechanical obstruction.2. Normal right renal perfusion, cortical accu mulation, and excretion,without evidence of mechanical obstruction.3. LEFT:RIGHT Differential Function (%): 27: 73 IR Neph Cath-Neph Ureter w/Guide Left Result Date: October 02, 2022 Verified By: JANET FLOREZ MD CLINICAL STATEMENT: IMPRESSION: 1. Successful placement of a new 8 [place] 26 cm left nephroureteral stent. 2. Left nephrostogram and antegrade pyelography Assessment/Plan Pyelonephritis - Directly admitted for abdominal pain and vast array of urinary symptoms. Pain is improving, remained afebrile, vitals stable - Left Nephrostomy tube in place since 2019. Last IR nephrostomy tube exchange 08/14/2022 - Recurrent history of complicated urinary tract infection with ESBL / E. coli / Enterococcus / Klebsiella pneumonia sensitive to Meropenem, Imipenem, Ertapenem, Gentamicin - Last admission on 08/08/22 she was treated with Meropenem and transitioned to PO Macrobid - Nephrostomy UOP ranging from 250-300 cc - Continue Meropenem 1 g q8hrs - Urinalysis: large blood, large protein, large LE. urine culture from left nephrostomy tube pending - UA (Clean catch) -15 ketone, Mod blood, 100 protein, Mod LE, 25-50WBC, 2+ bacteria, 25-50 RBC UCx p - Blood culture NGTD - MIVF weight based, 90 ml/hr - Strict I's and O's - s/p IR Nephrostomy exchange on 10/02/22 -Urine cx NGTD. Repeat obtained. -IV Abx per ID. Pt on Meropenem. -UOP: L neph tube: 1475 /24hrs. History of cervical cancer - Stage IIIB SCC of cervix - S/p Chemoradiation, currently in remission -Recent CT 08/02/22 unremarkable for signs of cancer recurrence -Recent Pap smear (07/15) negative for cervical dysplasia, however positive for HPV. For 6 months follow up per Dr. Martin's last note - Port-A-Cath in place -Consider repeat CT Abd/Pelvis. Will discuss with Dr. Martin. -NM Renal scan showed no obstructive symptoms of bilateral kidneys. Differential of Renal function 27/73. -Renal function Left:right, 27:73%. -Current Pain management: Dilaudid 1 mg IV for breakthrough q 2hr, 30 mg MS Contin BID, Gabapentin 300 mg qHS. Oxycodone 10 mg q4hr. Tobacco - Daily nicotine patch Anxiety / Depression - Pt has had SI to multiple SSRIs. We discussed her trauma history yesterday and I asked if she would like for us to reach out to psychiatry. Pt was seen, but did not think her visit was productive. She has requested we cancel out consultation. Asthma -Pt doing well, will continue to monitor. Obstructive uropathy s/p Left Nephrostomy tube - Initially placed in 2019. - s/p exchange on 10/02/22 Poor appetite, improving - MIVF weight based - Nutrition consulted -Marinol started. Admit to regular floor Condition: Stable Vitals: q4hr Activity: Ambulate Diet: Regular IVF: HLIV DVT Prophylaxis: SCDs, Heparin Consults: IR Patient is a 31 yo woman with a history of stage IIIB cervical cancer s/p chemoradiation,has a history obstructive uropathy with left nephrostomy tube in place; admitted for abdominal pain, urinary symptoms concerning for pyelonephritis. Disposition: Continue inpatient management for pain control. Pt would like to go home today. She feels comfortable with self administration of Antibiotics. Coordinating home care with social work. Will discuss discharge planning with Dr. Martin. Digitally Signed by DILLAN KUMAR MD on 10/08/2022 05:52 AM [facility] [id number] Nurse Progress note Tried explaining to patient our hesitancy in giving her too many narcotics and patient stated that she is experiencing intolerable pain even though she appears to be very calm and vital signs are stable. Patient started arguing with me asking me if I think she is lying, and I tried to explain what the nurse that answered the call light relayed to me, to which the patient stated that was not true.Patient is being unruly and will not listen to explanation or reason. Digitally Signed by JAMAL Ferrer on 10/08/2022 12:32 AM [facility] [id number] Note Date of Service 10/07/22 Chief Complaint Abdominal pain Difficulty urinating Subjective Pt seen and examined this AM. She has continued to have pain, it is better controlled on her current regimen. She prefers the oxycodone without acetominophen. She has still needed Dilaudid for breakthrough pain. No nausea or emesis overnight. No fevers, chills, chest pain, SOB, or calf pain. Objective Vitals and Measurements T: 36.8 C (Oral) TMIN: 36.8 C (Oral) TMAX: 37 C (Oral) HR: 93 RR: 16 BP: 110/75 SpO2: 98% Intake and Output 7AM Yesterday to 7AM Today Intake and Output (Last 24 hours) Intake Oral Intake 240.00 Output Urine Voided 450.00 Urostomy Output: 920.00 Stool Count 1.00 Urine Count 1.00 Total Summary Total Intake 240.00 Total Output 1370.00 Fluid Balance -1130.00 Physical Exam General: A&Ox3, no apparent distress, tearful Resp: clear to auscultation bilaterally CV: normal rate and rhythm Abdomen: Soft, mildly tender, nonrigid, no peritoneal signs, positive bowel sounds throughout. Pelvis: No signs of active vaginal bleeding Ext: No lower extremity edema. No cyanosis. Negative Homans sign Spine: Left CVA tenderness improved, No leaking at nephrostomy site, no erythema, swelling. Tender to palpation. Nephrostomy bag with clear urine at bedisde Weight Dosing Weight: 50.4 kg (09/30/22) Dosing Weight: 50.4 kg (09/30/22) Medications Medications (17) Active Scheduled: (13) docusate sodium 100 mg Capsule 100 mg 1 cap(s), Oral, BID dronabinol 2.5 mg capsule 2.5 mg 1 cap(s), Oral, BID gabapentin 300 mg Capsule 300 mg 1 cap(s), Oral, qHS heparin 5,000 units/mL (1 mL) vial 5,000 unit(s) 1 mL, Subcutaneous, q8h LORAZEPam 1 mg Tablet 1 mg 1 tab(s), Oral, TID meropenem 1,000 mg, IV Piggyback, q8h morphine 15 mg ER tablet 15 mg 1 tab(s), Oral, q12h Nicoderm patch REMOVAL 1 EA, Miscellaneous, Daily nicotine 7 mg/24 hr ER patch 7 mg 1 patch(es), Transdermal, Daily oxycodone 5 mg tablet (immediate release) 10 mg 2 tab(s), Oral, q4h pantoprazole 40 mg EC tablet 40 mg 1 tab(s), Oral, qDayAC sodium chloride 0.9% 10 ml syringe maddie flush 0.09 gram(s) 10 mL, IR Drain, Daily sodium chloride 0.9% 10 ml syringe maddie flush 10 mL, IR Drain, q8h Continuous: (0) PRN: (4) acetaminophen 325 mg Tablet 650 mg 2 tab(s), Oral, q4h hydromorphone 1 mg/mL (1mL) INJ 1 mg 1 mL, IV Push, q2h naloxone 0.4 mg/mL (1mL) vial 0.2 mg 0.5 mL, IV Push, AsDirected ondansetron 2 mg/ 1 mL 2 mL INJ 4 mg 2 mL, IV Push, q4hr Lab Results 10/06 05:20 WBC: 5.9 Hgb: 12.2 Hct: 36.8 Platelet: 347 Neutrophil %: 54.7 Glucose Level: 104 Sodium Level: 140 Potassium Level: 3.8 BUN: 5.0 L Creatinine Lvl (s): 0.77 Imaging Results and Diagnostics CT Urogram Result Date: October 05, 2022 Verified By: SCOOBY JOSE MD CLINICAL STATEMENT: IMPRESSION: Mild circumferential bladder wall thickening with surrounding perivesicularhaziness, nonspecific although can be seen in the cystitis. Asymmetric leftperiureteral fat stranding which is favored to be related to thenephroureteral stent although correlate clinically. Stable left percutaneous nephrostomy tube in interval placement of a leftdouble-J stent. Stable prominent non pathologically enlarged left para-aortic lymph nodes.Attention on follow-up advised. RECOMMENDATIONS:Unavailable NM Kidney Diuretic Result Date: October 03, 2022 Verified By: GONZALEZ MCRAE DO CLINICAL STATEMENT: IMPRESSION: 1. Prompt left renal perfusion, however, with diminished corticalaccumulation and diminutive size of the left kidney. Prompt excretion andclearance, both through the left ureter and nephrostomy tube, withoutevidence of mechanical obstruction.2. Normal right renal perfusion, cortical accu mulation, and excretion,without evidence of mechanical obstruction.3. LEFT:RIGHT Differential Function (%): 27: 73 IR Neph Cath-Neph Ureter w/Guide Left Result Date: October 02, 2022 Verified By: JANET FLOREZ MD CLINICAL STATEMENT: IMPRESSION: 1. Successful placement of a new 8 [place] 26 cm left nephroureteral stent. 2. Left nephrostogram and antegrade pyelography Assessment/Plan Pyelonephritis - Directly admitted for abdominal pain and vast array of urinary symptoms. Pain is improving, remained afebrile, vitals stable - Left Nephrostomy tube in place since 2019. Last IR nephrostomy tube exchange 08/14/2022 - Recurrent history of complicated urinary tract infection with ESBL / E. coli / Enterococcus / Klebsiella pneumonia sensitive to Meropenem, Imipenem, Ertapenem, Gentamicin - Last admission on 08/08/22 she was treated with Meropenem and transitioned to PO Macrobid - Nephrostomy UOP ranging from 250-300 cc - Continue Meropenem 1 g q8hrs - Urinalysis: large blood, large protein, large LE. urine culture from left nephrostomy tube pending - UA (Clean catch) -15 ketone, Mod blood, 100 protein, Mod LE, 25-50WBC, 2+ bacteria, 25-50 RBC UCx p - Blood culture NGTD - MIVF weight based, 90 ml/hr - Strict I's and O's - s/p IR Nephrostomy exchange on 10/02/22 -Urine cx NGTD. Repeat obtained. -IV Abx per ID. Pt on Meropenem. -UOP: L neph tube 1250 cc/24 hrs. Voided 200 cc urine /24 hrs. History of cervical cancer - Stage IIIB SCC of cervix - S/p Chemoradiation, currently in remission -Recent CT 08/02/22 unremarkable for signs of cancer recurrence -Recent Pap smear (07/15) negative for cervical dysplasia, however positive for HPV. For 6 months follow up per Dr. Martin's last note - Port-A-Cath in place -Consider repeat CT Abd/Pelvis. Will discuss with Dr. Martin. -NM Renal scan showed no obstructive symptoms of bilateral kidneys. Differential of Renal function . -Renal function Left:right, 27:73%. 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 Oxycodone 10 mg q4hr, Dilaudid 1 mg q2 hr prn for breakthrough. Tobacco - Daily nicotine patch Anxiety / Depression - Pt has had SI to multiple SSRIs. We discussed her trauma history yesterday and I asked if she would like for us to reach out to psychiatry. Pt was seen, but did not think her visit was productive. She has requested we cancel out consultation. Asthma -Pt doing well, will continue to monitor. Obstructive uropathy s/p Left Nephrostomy tube - Initially placed in 2019. - s/p exchange on 10/02/22 Poor appetite, improving - MIVF weight based - Nutrition consulted -Marinol started. Admit to regular floor Condition: Stable Vitals: q4hr Activity: Ambulate Diet: Regular IVF: HLIV DVT Prophylaxis: SCDs, Heparin Consults: IR Patient is a 31 yo woman with a history of stage IIIB cervical cancer s/p chemoradiation,has a history obstructive uropathy with left nephrostomy tube in place; admitted for abdominal pain, urinary symptoms concerning for pyelonephritis. Disposition: Continue inpatient management for pain control. Will discuss with Dr. Martin. Digitally Signed by DILLAN KUMAR MD on 10/07/2022 06:01 AM [id number] Note Date of Service 10/07/22 Chief Complaint Abdominal pain Difficulty urinating Subjective Pt seen and examined this AM. She has continued to have pain, it is better controlled on her current regimen. She prefers the oxycodone without acetominophen. She has still needed Dilaudid for breakthrough pain. No nausea or emesis overnight. No fevers, chills, chest pain, SOB, or calf pain. Objective Vitals and Measurements T: 36.8 C (Oral) TMIN: 36.8 C (Oral) TMAX: 37 C (Oral) HR: 93 RR: 16 BP: 110/75 SpO2: 98% Intake and Output 7AM Yesterday to 7AM Today Intake and Output (Last 24 hours) Intake Oral Intake 240.00 Output Urine Voided 450.00 Urostomy Output: 920.00 Stool Count 1.00 Urine Count 1.00 Total Summary Total Intake 240.00 Total Output 1370.00 Fluid Balance -1130.00 Physical Exam General: A&Ox3, no apparent distress, tearful Resp: clear to auscultation bilaterally CV: normal rate and rhythm Abdomen: Soft, mildly tender, nonrigid, no peritoneal signs, positive bowel sounds throughout. Pelvis: No signs of active vaginal bleeding Ext: No lower extremity edema. No cyanosis. Negative Homans sign Spine: Left CVA tenderness improved, No leaking at nephrostomy site, no erythema, swelling. Tender to palpation. Nephrostomy bag with clear urine at bedisde Weight Dosing Weight: 50.4 kg (09/30/22) Dosing Weight: 50.4 kg (09/30/22) Medications Medications (17) Active Scheduled: (13) docusate sodium 100 mg Capsule 100 mg 1 cap(s), Oral, BID dronabinol 2.5 mg capsule 2.5 mg 1 cap(s), Oral, BID gabapentin 300 mg Capsule 300 mg 1 cap(s), Oral, qHS heparin 5,000 units/mL (1 mL) vial 5,000 unit(s) 1 mL, Subcutaneous, q8h LORAZEPam 1 mg Tablet 1 mg 1 tab(s), Oral, TID meropenem 1,000 mg, IV Piggyback, q8h morphine 15 mg ER tablet 15 mg 1 tab(s), Oral, q12h Nicoderm patch REMOVAL 1 EA, Miscellaneous, Daily nicotine 7 mg/24 hr ER patch 7 mg 1 patch(es), Transdermal, Daily oxycodone 5 mg tablet (immediate release) 10 mg 2 tab(s), Oral, q4h pantoprazole 40 mg EC tablet 40 mg 1 tab(s), Oral, qDayAC sodium chloride 0.9% 10 ml syringe maddie flush 0.09 gram(s) 10 mL, IR Drain, Daily sodium chloride 0.9% 10 ml syringe maddie flush 10 mL, IR Drain, q8h Continuous: (0) PRN: (4) acetaminophen 325 mg Tablet 650 mg 2 tab(s), Oral, q4h hydromorphone 1 mg/mL (1mL) INJ 1 mg 1 mL, IV Push, q2h naloxone 0.4 mg/mL (1mL) vial 0.2 mg 0.5 mL, IV Push, AsDirected ondansetron 2 mg/ 1 mL 2 mL INJ 4 mg 2 mL, IV Push, q4hr Lab Results 10/06 05:20 WBC: 5.9 Hgb: 12.2 Hct: 36.8 Platelet: 347 Neutrophil %: 54.7 Glucose Level: 104 Sodium Level: 140 Potassium Level: 3.8 BUN: 5.0 L Creatinine Lvl (s): 0.77 Imaging Results and Diagnostics CT Urogram Result Date: October 05, 2022 Verified By: SCOOBY JOSE MD CLINICAL STATEMENT: IMPRESSION: Mild circumferential bladder wall thickening with surrounding perivesicularhaziness, nonspecific although can be seen in the cystitis. Asymmetric leftperiureteral fat stranding which is favored to be related to thenephroureteral stent although correlate clinically. Stable left percutaneous nephrostomy tube in interval placement of a leftdouble-J stent. Stable prominent non pathologically enlarged left para-aortic lymph nodes.Attention on follow-up advised. RECOMMENDATIONS:Unavailable NM Kidney Diuretic Result Date: October 03, 2022 Verified By: GONZALEZ MCRAE DO CLINICAL STATEMENT: IMPRESSION: 1. Prompt left renal perfusion, however, with diminished corticalaccumulation and diminutive size of the left kidney. Prompt excretion andclearance, both through the left ureter and nephrostomy tube, withoutevidence of mechanical obstruction.2. Normal right renal perfusion, cortical accu mulation, and excretion,without evidence of mechanical obstruction.3. LEFT:RIGHT Differential Function (%): 27: 73 IR Neph Cath-Neph Ureter w/Guide Left Result Date: October 02, 2022 Verified By: JANET FLOREZ MD CLINICAL STATEMENT: IMPRESSION: 1. Successful placement of a new 8 [place] 26 cm left nephroureteral stent. 2. Left nephrostogram and antegrade pyelography Assessment/Plan Pyelonephritis - Directly admitted for abdominal pain and vast array of urinary symptoms. Pain is improving, remained afebrile, vitals stable - Left Nephrostomy tube in place since 2019. Last IR nephrostomy tube exchange 08/14/2022 - Recurrent history of complicated urinary tract infection with ESBL / E. coli / Enterococcus / Klebsiella pneumonia sensitive to Meropenem, Imipenem, Ertapenem, Gentamicin - Last admission on 08/08/22 she was treated with Meropenem and transitioned to PO Macrobid - Nephrostomy UOP ranging from 250-300 cc - Continue Meropenem 1 g q8hrs - Urinalysis: large blood, large protein, large LE. urine culture from left nephrostomy tube pending - UA (Clean catch) -15 ketone, Mod blood, 100 protein, Mod LE, 25-50WBC, 2+ bacteria, 25-50 RBC UCx p - Blood culture NGTD - MIVF weight based, 90 ml/hr - Strict I's and O's - s/p IR Nephrostomy exchange on 10/02/22 -Urine cx NGTD. Repeat obtained. -IV Abx per ID. Pt on Meropenem. -UOP: L neph tube 1250 cc/24 hrs. Voided 200 cc urine /24 hrs. History of cervical cancer - Stage IIIB SCC of cervix - S/p Chemoradiation, currently in remission -Recent CT 08/02/22 unremarkable for signs of cancer recurrence -Recent Pap smear (07/15) negative for cervical dysplasia, however positive for HPV. For 6 months follow up per Dr. Martin's last note - Port-A-Cath in place -Consider repeat CT Abd/Pelvis. Will discuss with Dr. Martin. -NM Renal scan showed no obstructive symptoms of bilateral kidneys. Differential of Renal function . -Renal function Left:right, 27:73%. 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 Oxycodone 10 mg q4hr, Dilaudid 1 mg q2 hr prn for breakthrough. Tobacco - Daily nicotine patch Anxiety / Depression - Pt has had SI to multiple SSRIs. We discussed her trauma history yesterday and I asked if she would like for us to reach out to psychiatry. Pt was seen, but did not think her visit was productive. She has requested we cancel out consultation. Asthma -Pt doing well, will continue to monitor. Obstructive uropathy s/p Left Nephrostomy tube - Initially placed in 2019. - s/p exchange on 10/02/22 Poor appetite, improving - MIVF weight based - Nutrition consulted -Marinol started. Admit to regular floor Condition: Stable Vitals: q4hr Activity: Ambulate Diet: Regular IVF: HLIV DVT Prophylaxis: SCDs, Heparin Consults: IR Patient is a 31 yo woman with a history of stage IIIB cervical cancer s/p chemoradiation,has a history obstructive uropathy with left nephrostomy tube in place; admitted for abdominal pain, urinary symptoms concerning for pyelonephritis. Disposition: Continue inpatient management for pain control. Will discuss with Dr. Martin. Digitally Signed by DILLAN KUMAR MD on 10/07/2022 06:01 AM [facility] [id number] Note Date of Service 10/06/22 Chief Complaint Abdominal pain Difficulty urinating Subjective Pt seen and examined No emesis yesterday. nausea improved. Pain is improving as well with the MS Contin. No fevers, chills, chest pain, SOB, and calf pain. Objective Vitals and Measurements T: 36.6 C (Oral) TMIN: 36.6 C (Oral) TMAX: 36.9 C (Oral) HR: 81 RR: 16 BP: 105/72 SpO2: 100% Intake and Output 7AM Yesterday to 7AM Today Intake and Output (Last 24 hours) Intake Oral Intake 240.00 Output Urine Voided 200.00 Urostomy Output: 1675.00 Stool Count 0.00 Urine Count 0.00 Total Summary Total Intake 240.00 Total Output 1875.00 Fluid Balance -1635.00 Physical Exam General: A&Ox3, no apparent distress, tearful Resp: clear to auscultation bilaterally CV: normal rate and rhythm Abdomen: Soft, mildly tender, nonrigid, no peritoneal signs, positive bowel sounds throughout. Pelvis: No signs of active vaginal bleeding Ext: No lower extremity edema. No cyanosis. Negative Homans sign Spine: Left CVA tenderness improved, No leaking at nephrostomy site, no erythema, swelling. Tender to palpation. Nephrostomy bag with clear urine at bedisde Weight Dosing Weight: 50.4 kg (09/30/22) Dosing Weight: 50.4 kg (09/30/22) Medications Medications (16) Active Scheduled: (13) docusate sodium 100 mg Capsule 100 mg 1 cap(s), Oral, BID dronabinol 2.5 mg capsule 2.5 mg 1 cap(s), Oral, BID gabapentin 300 mg Capsule 300 mg 1 cap(s), Oral, qHS heparin 5,000 units/mL (1 mL) vial 5,000 unit(s) 1 mL, Subcutaneous, q8h LORAZEPam 1 mg Tablet 1 mg 1 tab(s), Oral, TID meropenem 1,000 mg, IV Piggyback, q8h morphine 15 mg ER tablet 15 mg 1 tab(s), Oral, q12h Nicoderm patch REMOVAL 1 EA, Miscellaneous, Daily nicotine 7 mg/24 hr ER patch 7 mg 1 patch(es), Transdermal, Daily ondansetron 2 mg/ 1 mL 2 mL INJ 4 mg 2 mL, IV Push, q4hr pantoprazole 40 mg EC tablet 40 mg 1 tab(s), Oral, qDayAC sodium chloride 0.9% 10 ml syringe maddie flush 0.09 gram(s) 10 mL, IR Drain, Daily sodium chloride 0.9% 10 ml syringe maddie flush 10 mL, IR Drain, q8h Continuous: (1) HYDROmorphone AUTOMOTIVE ALIGNMENT SPECIALIST in 50mL NS 10 mg 10 mg 50 mL, Intravenous PRN: (2) acetaminophen 325 mg Tablet 650 mg 2 tab(s), Oral, q4h naloxone 0.4 mg/mL (1mL) vial 0.2 mg 0.5 mL, IV Push, AsDirected Lab Results 10/06 05:20 WBC: 5.9 Hgb: 12.2 Hct: 36.8 Platelet: 347 Neutrophil %: 54.7 Glucose Level: 104 Sodium Level: 140 Potassium Level: 3.8 BUN: 5.0 L Creatinine Lvl (s): 0.77 10/05 06:23 WBC: 5.2 Hgb: 12.1 Hct: 36.6 Platelet: 321 Neutrophil %: 48.1 L Glucose Level: 80 Sodium Level: 143 Potassium Level: 3.9 BUN: <5.0 L Creatinine Lvl (s): 0.64 Imaging Results and Diagnostics CT Urogram Result Date: October 05, 2022 Verified By: SCOOBY JOSE MD CLINICAL STATEMENT: IMPRESSION: Mild circumferential bladder wall thickening with surrounding perivesicularhaziness, nonspecific although can be seen in the cystitis. Asymmetric leftperiureteral fat stranding which is favored to be related to thenephroureteral stent although correlate clinically. Stable left percutaneous nephrostomy tube in interval placement of a leftdouble-J stent. Stable prominent non pathologically enlarged left para-aortic lymph nodes.Attention on follow-up advised. RECOMMENDATIONS:Unavailable NM Kidney Diuretic Result Date: October 03, 2022 Verified By: GONZALEZ MCRAE DO CLINICAL STATEMENT: IMPRESSION: 1. Prompt left renal perfusion, however, with diminished corticalaccumulation and diminutive size of the left kidney. Prompt excretion andclearance, both through the left ureter and nephrostomy tube, withoutevidence of mechanical obstruction.2. Normal right renal perfusion, cortical accu mulation, and excretion,without evidence of mechanical obstruction.3. LEFT:RIGHT Differential Function (%): 27: 73 IR Neph Cath-Neph Ureter w/Guide Left Result Date: October 02, 2022 Verified By: JANET FLOREZ MD CLINICAL STATEMENT: IMPRESSION: 1. Successful placement of a new 8 [place] 26 cm left nephroureteral stent. 2. Left nephrostogram and antegrade pyelography Assessment/Plan Pyelonephritis - Directly admitted for abdominal pain and vast array of urinary symptoms. Pain is improving, remained afebrile, vitals stable - Left Nephrostomy tube in place since 2019. Last IR nephrostomy tube exchange 08/14/2022 - Recurrent history of complicated urinary tract infection with ESBL / E. coli / Enterococcus / Klebsiella pneumonia sensitive to Meropenem, Imipenem, Ertapenem, Gentamicin - Last admission on 08/08/22 she was treated with Meropenem and transitioned to PO Macrobid - Nephrostomy UOP ranging from 250-300 cc - Continue Meropenem 1 g q8hrs - Urinalysis: large blood, large protein, large LE. urine culture from left nephrostomy tube pending - UA (Clean catch) -15 ketone, Mod blood, 100 protein, Mod LE, 25-50WBC, 2+ bacteria, 25-50 RBC UCx p - Blood culture NGTD - MIVF weight based, 90 ml/hr - Strict I's and O's - s/p IR Nephrostomy exchange on 10/02/22 -Urine cx NGTD. Repeat obtained. -IV Abx per ID. Pt on Meropenem. -UOP: L neph tube 1250 cc/24 hrs. Voided 200 cc urine /24 hrs. History of cervical cancer - Stage IIIB SCC of cervix - S/p Chemoradiation, currently in remission -Recent CT 08/02/22 unremarkable for signs of cancer recurrence -Recent Pap smear (07/15) negative for cervical dysplasia, however positive for HPV. For 6 months follow up per Dr. Martin's last note - Port-A-Cath in place -Consider repeat CT Abd/Pelvis. Will discuss with Dr. Martin. -NM Renal scan showed no obstructive symptoms of bilateral kidneys. Differential of Renal function 27/73. -Renal function Left:right, 27:73%. 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 Tobacco - Daily nicotine patch Anxiety / Depression - Pt has had SI to multiple SSRIs. We discussed her trauma history yesterday and I asked if she would like for us to reach out to psychiatry. Pt was seen, but did not think her visit was productive. She has requested we cancel out consultation. Asthma -Pt doing well, will continue to monitor. Obstructive uropathy s/p Left Nephrostomy tube - Initially placed in 2019. - s/p exchange on 10/02/22 Poor appetite, improving - MIVF weight based - Nutrition consulted -Marinol started. Admit to regular floor Condition: Stable Vitals: q4hr Activity: Ambulate Diet: Regular IVF: HLIV DVT Prophylaxis: SCDs, Heparin Consults: IR Patient is a 31 yo woman with a history of stage IIIB cervical cancer s/p chemoradiation,has a history obstructive uropathy with left nephrostomy tube in place; admitted for abdominal pain, urinary symptoms concerning for pyelonephritis. Disposition: Will continue to tighten pain control. S/p CT Urogram. Will discuss results with Dr. Martin. Digitally Signed by DILLAN KUMAR MD on 10/06/2022 08:18 AM [facility] [id number] Note Date of Service 10/06/22 Chief Complaint Abdominal pain Difficulty urinating Subjective Pt seen and examined No emesis yesterday. nausea improved. Pain is improving as well with the MS Contin. No fevers, chills, chest pain, SOB, and calf pain. Objective Vitals and Measurements T: 36.6 C (Oral) TMIN: 36.6 C (Oral) TMAX: 36.9 C (Oral) HR: 81 RR: 16 BP: 105/72 SpO2: 100% Intake and Output 7AM Yesterday to 7AM Today Intake and Output (Last 24 hours) Intake Oral Intake 240.00 Output Urine Voided 200.00 Urostomy Output: 1675.00 Stool Count 0.00 Urine Count 0.00 Total Summary Total Intake 240.00 Total Output 1875.00 Fluid Balance -1635.00 Physical Exam General: A&Ox3, no apparent distress, tearful Resp: clear to auscultation bilaterally CV: normal rate and rhythm Abdomen: Soft, mildly tender, nonrigid, no peritoneal signs, positive bowel sounds throughout. Pelvis: No signs of active vaginal bleeding Ext: No lower extremity edema. No cyanosis. Negative Homans sign Spine: Left CVA tenderness improved, No leaking at nephrostomy site, no erythema, swelling. Tender to palpation. Nephrostomy bag with clear urine at bedisde Weight Dosing Weight: 50.4 kg (09/30/22) Dosing Weight: 50.4 kg (09/30/22) Medications Medications (16) Active Scheduled: (13) docusate sodium 100 mg Capsule 100 mg 1 cap(s), Oral, BID dronabinol 2.5 mg capsule 2.5 mg 1 cap(s), Oral, BID gabapentin 300 mg Capsule 300 mg 1 cap(s), Oral, qHS heparin 5,000 units/mL (1 mL) vial 5,000 unit(s) 1 mL, Subcutaneous, q8h LORAZEPam 1 mg Tablet 1 mg 1 tab(s), Oral, TID meropenem 1,000 mg, IV Piggyback, q8h morphine 15 mg ER tablet 15 mg 1 tab(s), Oral, q12h Nicoderm patch REMOVAL 1 EA, Miscellaneous, Daily nicotine 7 mg/24 hr ER patch 7 mg 1 patch(es), Transdermal, Daily ondansetron 2 mg/ 1 mL 2 mL INJ 4 mg 2 mL, IV Push, q4hr pantoprazole 40 mg EC tablet 40 mg 1 tab(s), Oral, qDayAC sodium chloride 0.9% 10 ml syringe maddie flush 0.09 gram(s) 10 mL, IR Drain, Daily sodium chloride 0.9% 10 ml syringe maddie flush 10 mL, IR Drain, q8h Continuous: (1) HYDROmorphone AUTOM[employer]IVE ALIGNMENT SPECIALIST in 50mL NS 10 mg 10 mg 50 mL, Intravenous PRN: (2) acetaminophen 325 mg Tablet 650 mg 2 tab(s), Oral, q4h naloxone 0.4 mg/mL (1mL) vial 0.2 mg 0.5 mL, IV Push, AsDirected Lab Results 10/06 05:20 WBC: 5.9 Hgb: 12.2 Hct: 36.8 Platelet: 347 Neutrophil %: 54.7 Glucose Level: 104 Sodium Level: 140 Potassium Level: 3.8 BUN: 5.0 L Creatinine Lvl (s): 0.77 10/05 06:23 WBC: 5.2 Hgb: 12.1 Hct: 36.6 Platelet: 321 Neutrophil %: 48.1 L Glucose Level: 80 Sodium Level: 143 Potassium Level: 3.9 BUN: <5.0 L Creatinine Lvl (s): 0.64 Imaging Results and Diagnostics CT Urogram Result Date: October 05, 2022 Verified By: SCOOBY JOSE MD CLINICAL STATEMENT: IMPRESSION: Mild circumferential bladder wall thickening with surrounding perivesicularhaziness, nonspecific although can be seen in the cystitis. Asymmetric leftperiureteral fat stranding which is favored to be related to thenephroureteral stent although correlate clinically. Stable left percutaneous nephrostomy tube in interval placement of a leftdouble-J stent. Stable prominent non pathologically enlarged left para-aortic lymph nodes.Attention on follow-up advised. RECOMMENDATIONS:Unavailable NM Kidney Diuretic Result Date: October 03, 2022 Verified By: GONZALEZ MCRAE DO CLINICAL STATEMENT: IMPRESSION: 1. Prompt left renal perfusion, however, with diminished corticalaccumulation and diminutive size of the left kidney. Prompt excretion andclearance, both through the left ureter and nephrostomy tube, withoutevidence of mechanical obstruction.2. Normal right renal perfusion, cortical accu mulation, and excretion,without evidence of mechanical obstruction.3. LEFT:RIGHT Differential Function (%): 27: 73 IR Neph Cath-Neph Ureter w/Guide Left Result Date: October 02, 2022 Verified By: JANET FLOREZ MD CLINICAL STATEMENT: IMPRESSION: 1. Successful placement of a new 8 [place] 26 cm left nephroureteral stent. 2. Left nephrostogram and antegrade pyelography Assessment/Plan Pyelonephritis - Directly admitted for abdominal pain and vast array of urinary symptoms. Pain is improving, remained afebrile, vitals stable - Left Nephrostomy tube in place since 2019. Last IR nephrostomy tube exchange 08/14/2022 - Recurrent history of complicated urinary tract infection with ESBL / E. coli / Enterococcus / Klebsiella pneumonia sensitive to Meropenem, Imipenem, Ertapenem, Gentamicin - Last admission on 08/08/22 she was treated with Meropenem and transitioned to PO Macrobid - Nephrostomy UOP ranging from 250-300 cc - Continue Meropenem 1 g q8hrs - Urinalysis: large blood, large protein, large LE. urine culture from left nephrostomy tube pending - UA (Clean catch) -15 ketone, Mod blood, 100 protein, Mod LE, 25-50WBC, 2+ bacteria, 25-50 RBC UCx p - Blood culture NGTD - MIVF weight based, 90 ml/hr - Strict I's and O's - s/p IR Nephrostomy exchange on 10/02/22 -Urine cx NGTD. Repeat obtained. -IV Abx per ID. Pt on Meropenem. -UOP: L neph tube 1250 cc/24 hrs. Voided 200 cc urine /24 hrs. History of cervical cancer - Stage IIIB SCC of cervix - S/p Chemoradiation, currently in remission -Recent CT 08/02/22 unremarkable for signs of cancer recurrence -Recent Pap smear (07/15) negative for cervical dysplasia, however positive for HPV. For 6 months follow up per Dr. Martin's last note - Port-A-Cath in place -Consider repeat CT Abd/Pelvis. Will discuss with Dr. Martin. -NM Renal scan showed no obstructive symptoms of bilateral kidneys. Differential of Renal function 27/73. -Renal function Left:right, 27:73%. 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 Tobacco - Daily nicotine patch Anxiety / Depression - Pt has had SI to multiple SSRIs. We discussed her trauma history yesterday and I asked if she would like for us to reach out to psychiatry. Pt was seen, but did not think her visit was productive. She has requested we cancel out consultation. Asthma -Pt doing well, will continue to monitor. Obstructive uropathy s/p Left Nephrostomy tube - Initially placed in 2019. - s/p exchange on 10/02/22 Poor appetite, improving - MIVF weight based - Nutrition consulted -Marinol started. Admit to regular floor Condition: Stable Vitals: q4hr Activity: Ambulate Diet: Regular IVF: HLIV DVT Prophylaxis: SCDs, Heparin Consults: IR Patient is a 31 yo woman with a history of stage IIIB cervical cancer s/p chemoradiation,has a history obstructive uropathy with left nephrostomy tube in place; admitted for abdominal pain, urinary symptoms concerning for pyelonephritis. Disposition: Will continue to tighten pain control. S/p CT Urogram. Will discuss results with Dr. Martin. Digitally Signed by DILLAN KUMAR MD on 10/06/2022 08:18 AM [id number] Note Date of Service 10/06/22 Chief Complaint Abdominal pain Difficulty urinating Subjective Pt seen and examined No emesis yesterday. nausea improved. Pain is improving as well with the MS Contin. No fevers, chills, chest pain, SOB, and calf pain. Objective Vitals and Measurements T: 36.6 C (Oral) TMIN: 36.6 C (Oral) TMAX: 36.9 C (Oral) HR: 81 RR: 16 BP: 105/72 SpO2: 100% Intake and Output 7AM Yesterday to 7AM Today Intake and Output (Last 24 hours) Intake Oral Intake 240.00 Output Urine Voided 200.00 Urostomy Output: 1675.00 Stool Count 0.00 Urine Count 0.00 Total Summary Total Intake 240.00 Total Output 1875.00 Fluid Balance -1635.00 Physical Exam General: A&Ox3, no apparent distress, tearful Resp: clear to auscultation bilaterally CV: normal rate and rhythm Abdomen: Soft, mildly tender, nonrigid, no peritoneal signs, positive bowel sounds throughout. Pelvis: No signs of active vaginal bleeding Ext: No lower extremity edema. No cyanosis. Negative Homans sign Spine: Left CVA tenderness improved, No leaking at nephrostomy site, no erythema, swelling. Tender to palpation. Nephrostomy bag with clear urine at bedisde Weight Dosing Weight: 50.4 kg (09/30/22) Dosing Weight: 50.4 kg (09/30/22) Medications Medications (16) Active Scheduled: (13) docusate sodium 100 mg Capsule 100 mg 1 cap(s), Oral, BID dronabinol 2.5 mg capsule 2.5 mg 1 cap(s), Oral, BID gabapentin 300 mg Capsule 300 mg 1 cap(s), Oral, qHS heparin 5,000 units/mL (1 mL) vial 5,000 unit(s) 1 mL, Subcutaneous, q8h LORAZEPam 1 mg Tablet 1 mg 1 tab(s), Oral, TID meropenem 1,000 mg, IV Piggyback, q8h morphine 15 mg ER tablet 15 mg 1 tab(s), Oral, q12h Nicoderm patch REMOVAL 1 EA, Miscellaneous, Daily nicotine 7 mg/24 hr ER patch 7 mg 1 patch(es), Transdermal, Daily ondansetron 2 mg/ 1 mL 2 mL INJ 4 mg 2 mL, IV Push, q4hr pantoprazole 40 mg EC tablet 40 mg 1 tab(s), Oral, qDayAC sodium chloride 0.9% 10 ml syringe maddie flush 0.09 gram(s) 10 mL, IR Drain, Daily sodium chloride 0.9% 10 ml syringe maddie flush 10 mL, IR Drain, q8h Continuous: (1) HYDROmorphone AUTOMOTIVE ALIGNMENT SPECIALIST in 50mL NS 10 mg 10 mg 50 mL, Intravenous PRN: (2) acetaminophen 325 mg Tablet 650 mg 2 tab(s), Oral, q4h naloxone 0.4 mg/mL (1mL) vial 0.2 mg 0.5 mL, IV Push, AsDirected Lab Results 10/06 05:20 WBC: 5.9 Hgb: 12.2 Hct: 36.8 Platelet: 347 Neutrophil %: 54.7 Glucose Level: 104 Sodium Level: 140 Potassium Level: 3.8 BUN: 5.0 L Creatinine Lvl (s): 0.77 10/05 06:23 WBC: 5.2 Hgb: 12.1 Hct: 36.6 Platelet: 321 Neutrophil %: 48.1 L Glucose Level: 80 Sodium Level: 143 Potassium Level: 3.9 BUN: <5.0 L Creatinine Lvl (s): 0.64 Imaging Results and Diagnostics CT Urogram Result Date: October 05, 2022 Verified By: SCOOBY JOSE MD CLINICAL STATEMENT: IMPRESSION: Mild circumferential bladder wall thickening with surrounding perivesicularhaziness, nonspecific although can be seen in the cystitis. Asymmetric leftperiureteral fat stranding which is favored to be related to thenephroureteral stent although correlate clinically. Stable left percutaneous nephrostomy tube in interval placement of a leftdouble-J stent. Stable prominent non pathologically enlarged left para-aortic lymph nodes.Attention on follow-up advised. RECOMMENDATIONS:Unavailable NM Kidney Diuretic Result Date: October 03, 2022 Verified By: GONZALEZ MCRAE DO CLINICAL STATEMENT: IMPRESSION: 1. Prompt left renal perfusion, however, with diminished corticalaccumulation and diminutive size of the left kidney. Prompt excretion andclearance, both through the left ureter and nephrostomy tube, withoutevidence of mechanical obstruction.2. Normal right renal perfusion, cortical accu mulation, and excretion,without evidence of mechanical obstruction.3. LEFT:RIGHT Differential Function (%): 27: 73 IR Neph Cath-Neph Ureter w/Guide Left Result Date: October 02, 2022 Verified By: JANET FLOREZ MD CLINICAL STATEMENT: IMPRESSION: 1. Successful placement of a new 8 [place] 26 cm left nephroureteral stent. 2. Left nephrostogram and antegrade pyelography Assessment/Plan Pyelonephritis - Directly admitted for abdominal pain and vast array of urinary symptoms. Pain is improving, remained afebrile, vitals stable - Left Nephrostomy tube in place since 2019. Last IR nephrostomy tube exchange 08/14/2022 - Recurrent history of complicated urinary tract infection with ESBL / E. coli / Enterococcus / Klebsiella pneumonia sensitive to Meropenem, Imipenem, Ertapenem, Gentamicin - Last admission on 08/08/22 she was treated with Meropenem and transitioned to PO Macrobid - Nephrostomy UOP ranging from 250-300 cc - Continue Meropenem 1 g q8hrs - Urinalysis: large blood, large protein, large LE. urine culture from left nephrostomy tube pending - UA (Clean catch) -15 ketone, Mod blood, 100 protein, Mod LE, 25-50WBC, 2+ bacteria, 25-50 RBC UCx p - Blood culture NGTD - MIVF weight based, 90 ml/hr - Strict I's and O's - s/p IR Nephrostomy exchange on 10/02/22 -Urine cx NGTD. Repeat obtained. -IV Abx per ID. Pt on Meropenem. -UOP: L neph tube 1250 cc/24 hrs. Voided 200 cc urine /24 hrs. History of cervical cancer - Stage IIIB SCC of cervix - S/p Chemoradiation, currently in remission -Recent CT 08/02/22 unremarkable for signs of cancer recurrence -Recent Pap smear (07/15) negative for cervical dysplasia, however positive for HPV. For 6 months follow up per Dr. Martin's last note - Port-A-Cath in place -Consider repeat CT Abd/Pelvis. Will discuss with Dr. Martin. -NM Renal scan showed no obstructive symptoms of bilateral kidneys. Differential of Renal function 27/73. -Renal function Left:right, 27:73%. 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 Tobacco - Daily nicotine patch Anxiety / Depression - Pt has had SI to multiple SSRIs. We discussed her trauma history yesterday and I asked if she would like for us to reach out to psychiatry. Pt was seen, but did not think her visit was productive. She has requested we cancel out consultation. Asthma -Pt doing well, will continue to monitor. Obstructive uropathy s/p Left Nephrostomy tube - Initially placed in 2019. - s/p exchange on 10/02/22 Poor appetite, improving - MIVF weight based - Nutrition consulted -Marinol started. Admit to regular floor Condition: Stable Vitals: q4hr Activity: Ambulate Diet: Regular IVF: HLIV DVT Prophylaxis: SCDs, Heparin Consults: IR Patient is a 31 yo woman with a history of stage IIIB cervical cancer s/p chemoradiation,has a history obstructive uropathy with left nephrostomy tube in place; admitted for abdominal pain, urinary symptoms concerning for pyelonephritis. Disposition: Will continue to tighten pain control. S/p CT Urogram. Will discuss results with Dr. Martin. Digitally Signed by DILLAN KUMAR MD on 10/06/2022 08:18 AM [facility] [id number] Note ORIGINAL EXAMINATION: CT UROGRAM 10/05/2022 2:05 pm TECHNIQUE: CT of the abdomen and pelvis was performed before and after the administration of intravenous contrast as per CT urogram protocol. Multiplanar reformatted images as well as MIP urogram images are provided for review. Dose modulation, iterative reconstruction, and/or weight based adjustment of the mA/kV was utilized to reduce the radiation dose to as low as reasonably achievable. COMPARISON: 10/03/2022, 05/23/2021. HISTORY: ORDERING SYSTEM PROVIDED HISTORY: Reason for Exam: no urine output Technologist sheet notes bilateral flank pain and abdominal pain. History of cervical cancer. FINDINGS: Scattered pleural and parenchymal scarring. No acute osseous abnormality. The visualized liver is unremarkable. Normal gallbladder. The spleen, pancreas, and adrenal glands are unremarkable. On noncontrast imaging, no radiopaque stone seen within the kidneys, ureters, or urinary bladder. The patient is status post percutaneous nephrostomy tube with a double-J stent in the left ureter. A small locule of air is noted in the interpolar region of the left kidney and presumably related to current instrumentation. Following the administration of IV contrast, symmetric contrast excretion, with scattered areas of cortical scarring in the left kidney. On delayed imaging, no pelvic caliceal filling defect right ureter defect or defect within the urinary bladder. A right ureteral jet is noted. The left ureters filling is difficult to evaluate due to the presence of the double-J stent. Asymmetric left periureteral fat stranding. Mild bladder wall thickening with perivesicular haziness. Nonaneurysmal abdominal aorta. There are a few stable prominent non pathologically enlarged left para-aortic lymph nodes seen. [place] lymph node is seen on series 2, image 23/98 and measures up to 8 mm. The large and small bowel are unremarkable. Nonspecific perirectal fat edema. The uterus and adnexal structures are unremarkable. Trace pelvic free fluid. No pelvic lymphadenopathy. Small fat containing umbilical hernia. IMPRESSION: Mild circumferential bladder wall thickening with surrounding perivesicular haziness, nonspecific although can be seen in the cystitis. Asymmetric left periureteral fat stranding which is favored to be related to the nephroureteral stent although correlate clinically. Stable left percutaneous nephrostomy tube in interval placement of a left double-J stent. Stable prominent non pathologically enlarged left para-aortic lymph nodes. Attention on follow-up advised. RECOMMENDATIONS: Unavailable Interpreted by: Scooby Jose Preliminary Report By: Noemi English Electronically signed By Scooby Jose Dictated Date: 10/05/2022 7:28:06 PM Prelim Date: 10/05/2022 8:47:30 PM Sign Date: 10/05/2022 9:17:10 PM Ordering Provider: [facility]12-03-2022 Note ORIGINAL EXAMINATION: CT UROGRAM 10/05/2022 2:05 pm TECHNIQUE: CT of the abdomen and pelvis was performed before and after the administration of intravenous contrast as per CT urogram protocol. Multiplanar reformatted images as well as MIP urogram images are provided for review. Dose modulation, iterative reconstruction, and/or weight based adjustment of the mA/kV was utilized to reduce the radiation dose to as low as reasonably achievable. COMPARISON: 10/03/2022, 05/23/2021. HISTORY: ORDERING SYSTEM PROVIDED HISTORY: Reason for Exam: no urine output Technologist sheet notes bilateral flank pain and abdominal pain. History of cervical cancer. FINDINGS: Scattered pleural and parenchymal scarring. No acute osseous abnormality. The visualized liver is unremarkable. Normal gallbladder. The spleen, pancreas, and adrenal glands are unremarkable. On noncontrast imaging, no radiopaque stone seen within the kidneys, ureters, or urinary bladder. The patient is status post percutaneous nephrostomy tube with a double-J stent in the left ureter. A small locule of air is noted in the interpolar region of the left kidney and presumably related to current instrumentation. Following the administration of IV contrast, symmetric contrast excretion, with scattered areas of cortical scarring in the left kidney. On delayed imaging, no pelvic caliceal filling defect right ureter defect or defect within the urinary bladder. A right ureteral jet is noted. The left ureters filling is difficult to evaluate due to the presence of the double-J stent. Asymmetric left periureteral fat stranding. Mild bladder wall thickening with perivesicular haziness. Nonaneurysmal abdominal aorta. There are a few stable prominent non pathologically enlarged left para-aortic lymph nodes seen. [place] lymph node is seen on series 2, image 23/98 and measures up to 8 mm. The large and small bowel are unremarkable. Nonspecific perirectal fat edema. The uterus and adnexal structures are unremarkable. Trace pelvic free fluid. No pelvic lymphadenopathy. Small fat containing umbilical hernia. IMPRESSION: Mild circumferential bladder wall thickening with surrounding perivesicular haziness, nonspecific although can be seen in the cystitis. Asymmetric left periureteral fat stranding which is favored to be related to the nephroureteral stent although correlate clinically. Stable left percutaneous nephrostomy tube in interval placement of a left double-J stent. Stable prominent non pathologically enlarged left para-aortic lymph nodes. Attention on follow-up advised. RECOMMENDATIONS: Unavailable Interpreted by: Scooby Jose Preliminary Report By: Noemi English Electronically signed By Scooby Jose Dictated Date: 10/05/2022 7:28:06 PM Prelim Date: 10/05/2022 8:47:30 PM Sign Date: 10/05/2022 9:17:10 PM Ordering Provider: [facility]12-03-[facility]22 Note Date of Service 10/05/22 Chief Complaint Abdominal pain Difficulty urinating Subjective Pt seen and examined this AM. She is doing well today. No emesis since yesterday evening. Her nausea has improved. The Gabapentin did improve her pain. Objective Vitals and Measurements T: 36.7 C (Oral) TMIN: 36.7 C (Oral) TMAX: 36.8 C (Oral) HR: 95(Monitored) RR: 18 BP: 104/73 SpO2: 99% Intake and Output 7AM Yesterday to 7AM Today Intake and Output (Last 24 hours) Intake Intra-Op Crystalloid 100.00 Oral Intake 30.00 Administration Information 3.00 Output Urine Voided 200.00 Urostomy Output: 500.00 Total Summary Total Intake 133.00 Total Output 700.00 Fluid Balance -567.00 Physical Exam General: A&Ox3, no apparent distress, tearful Resp: clear to auscultation bilaterally CV: normal rate and rhythm Abdomen: Soft, mildly tender, nonrigid, no peritoneal signs, positive bowel sounds throughout. Pelvis: No signs of active vaginal bleeding Ext: No lower extremity edema. No cyanosis. Negative Homans sign Spine: Left CVA tenderness improved, No leaking at nephrostomy site, no erythema, swelling. Tender to palpation. Nephrostomy bag with clear urine at bedisde Weight Dosing Weight: 50.4 kg (09/30/22) Dosing Weight: 50.4 kg (09/30/22) Medications Medications (15) Active Scheduled: (12) docusate sodium 100 mg Capsule 100 mg 1 cap(s), Oral, BID dronabinol 2.5 mg capsule 2.5 mg 1 cap(s), Oral, BID gabapentin 300 mg Capsule 300 mg 1 cap(s), Oral, qHS heparin 5,000 units/mL (1 mL) vial 5,000 unit(s) 1 mL, Subcutaneous, q8h LORAZEPam 1 mg Tablet 1 mg 1 tab(s), Oral, TID meropenem 1,000 mg, IV Piggyback, q8h Nicoderm patch REMOVAL 1 EA, Miscellaneous, Daily nicotine 7 mg/24 hr ER patch 7 mg 1 patch(es), Transdermal, Daily ondansetron 2 mg/ 1 mL 2 mL INJ 4 mg 2 mL, IV Push, q4hr pantoprazole 40 mg VIAL 40 mg, IV Push, qDay sodium chloride 0.9% 10 ml syringe maddie flush 0.09 gram(s) 10 mL, IR Drain, Daily sodium chloride 0.9% 10 ml syringe maddie flush 10 mL, IR Drain, q8h Continuous: (1) HYDROmorphone AUTOMOTIVE ALIGNMENT SPECIALIST in 50mL NS 10 mg 10 mg 50 mL, Intravenous PRN: (2) acetaminophen 325 mg Tablet 650 mg 2 tab(s), Oral, q4h naloxone 0.4 mg/mL (1mL) vial 0.2 mg 0.5 mL, IV Push, AsDirected Lab Results 10/05 06:23 WBC: 5.2 Hgb: 12.1 Hct: 36.6 Platelet: 321 Neutrophil %: 48.1 L Glucose Level: 80 Sodium Level: 143 Potassium Level: 3.9 BUN: <5.0 L Creatinine Lvl (s): 0.64 10/04 04:12 WBC: 5.8 Hgb: 11.9 L Hct: 35.2 Platelet: 312 Neutrophil %: 56.2 Glucose Level: 88 Sodium Level: 142 Potassium Level: 3.9 BUN: 5.0 L Creatinine Lvl (s): 0.69 Imaging Results and Diagnostics NM Kidney Diuretic Result Date: October 03, 2022 Verified By: GONZALEZ MCRAE DO CLINICAL STATEMENT: IMPRESSION: 1. Prompt left renal perfusion, however, with diminished corticalaccumulation and diminutive size of the left kidney. Prompt excretion andclearance, both through the left ureter and nephrostomy tube, withoutevidence of mechanical obstruction.2. Normal right renal perfusion, cortical accu mulation, and excretion,without evidence of mechanical obstruction.3. LEFT:RIGHT Differential Function (%): 27: 73 IR Neph Cath-Neph Ureter w/Guide Left Result Date: October 02, 2022 Verified By: JANET FLOREZ MD CLINICAL STATEMENT: IMPRESSION: 1. Successful placement of a new 8 [place] 26 cm left nephroureteral stent. 2. Left nephrostogram and antegrade pyelography Assessment/Plan Pyelonephritis - Directly admitted for abdominal pain and vast array of urinary symptoms. Pain is improving, remained afebrile, vitals stable - Left Nephrostomy tube in place since 2019. Last IR nephrostomy tube exchange 08/14/2022 - Recurrent history of complicated urinary tract infection with ESBL / E. coli / Enterococcus / Klebsiella pneumonia sensitive to Meropenem, Imipenem, Ertapenem, Gentamicin - Last admission on 08/08/22 she was treated with Meropenem and transitioned to PO Macrobid - Nephrostomy UOP ranging from 250-300 cc - Continue Meropenem 1 g q8hrs - Urinalysis: large blood, large protein, large LE. urine culture from left nephrostomy tube pending - UA (Clean catch) -15 ketone, Mod blood, 100 protein, Mod LE, 25-50WBC, 2+ bacteria, 25-50 RBC UCx p - Blood culture NGTD - MIVF weight based, 90 ml/hr - Strict I's and O's - s/p IR Nephrostomy exchange on 10/02/22 -Urine cx NGTD. Repeat obtained. -IV Abx per ID. Will discuss duration of therapy with ID. -UOP: L neph tube 500 cc/24 hrs. Voided only 200 cc urine /24 hrs. History of cervical cancer - Stage IIIB SCC of cervix - S/p Chemoradiation, currently in remission -Recent CT 08/02/22 unremarkable for signs of cancer recurrence -Recent Pap smear (07/15) negative for cervical dysplasia, however positive for HPV. For 6 months follow up per Dr. Martin's last note - Port-A-Cath in place -Consider repeat CT Abd/Pelvis. Will discuss with Dr. Martin. -NM Renal scan showed no obstructive symptoms of bilateral kidneys. Differential of Renal function . -Pt's pain appears to be chronic in nature. Will discuss pain management with Dr. Martin. -Renal function Left:right, 27:73%. -AUTOMOTIVE ALIGNMENT SPECIALIST continued for now, consider d/c to oral pain meds. Starte Gabapentin 300 mg qHS. Tobacco - Daily nicotine patch Anxiety / Depression - Pt has had SI to multiple SSRIs. We discussed her trauma history yesterday and I asked if she would like for us to reach out to psychiatry. Pt was seen, but did not think her visit was productive. She ahs requested we cancel out consultation. Asthma -Pt doing well, will continue to monitor. Obstructive uropathy s/p Left Nephrostomy tube - Initially placed in 2019. - s/p exchange on 10/02/22 Poor appetite, improving - MIVF weight based - Nutrition consulted -Marinol started. Admit to regular floor Condition: Stable Vitals: q4hr Activity: Ambulate Diet: Regular IVF: HLIV DVT Prophylaxis: SCDs, Heparin Consults: IR Patient is a 31 yo woman with a history of stage IIIB cervical cancer s/p chemoradiation,has a history obstructive uropathy with left nephrostomy tube in place; admitted for abdominal pain, urinary symptoms concerning for pyelonephritis. Disposition: Will continue to tighten pain control. Pt for CT urogram today to r/o obstruction of right kidney. Digitally Signed by DILLAN KUMAR MD on 10/05/2022 08:33 AM [id number] Note Date of Service 10/05/22 Chief Complaint Abdominal pain Difficulty urinating Subjective Pt seen and examined this AM. She is doing well today. No emesis since yesterday evening. Her nausea has improved. The Gabapentin did improve her pain. Objective Vitals and Measurements T: 36.7 C (Oral) TMIN: 36.7 C (Oral) TMAX: 36.8 C (Oral) HR: 95(Monitored) RR: 18 BP: 104/73 SpO2: 99% Intake and Output 7AM Yesterday to 7AM Today Intake and Output (Last 24 hours) Intake Intra-Op Crystalloid 100.00 Oral Intake 30.00 Administration Information 3.00 Output Urine Voided 200.00 Urostomy Output: 500.00 Total Summary Total Intake 133.00 Total Output 700.00 Fluid Balance -567.00 Physical Exam General: A&Ox3, no apparent distress, tearful Resp: clear to auscultation bilaterally CV: normal rate and rhythm Abdomen: Soft, mildly tender, nonrigid, no peritoneal signs, positive bowel sounds throughout. Pelvis: No signs of active vaginal bleeding Ext: No lower extremity edema. No cyanosis. Negative Homans sign Spine: Left CVA tenderness improved, No leaking at nephrostomy site, no erythema, swelling. Tender to palpation. Nephrostomy bag with clear urine at bedisde Weight Dosing Weight: 50.4 kg (09/30/22) Dosing Weight: 50.4 kg (09/30/22) Medications Medications (15) Active Scheduled: (12) docusate sodium 100 mg Capsule 100 mg 1 cap(s), Oral, BID dronabinol 2.5 mg capsule 2.5 mg 1 cap(s), Oral, BID gabapentin 300 mg Capsule 300 mg 1 cap(s), Oral, qHS heparin 5,000 units/mL (1 mL) vial 5,000 unit(s) 1 mL, Subcutaneous, q8h LORAZEPam 1 mg Tablet 1 mg 1 tab(s), Oral, TID meropenem 1,000 mg, IV Piggyback, q8h Nicoderm patch REMOVAL 1 EA, Miscellaneous, Daily nicotine 7 mg/24 hr ER patch 7 mg 1 patch(es), Transdermal, Daily ondansetron 2 mg/ 1 mL 2 mL INJ 4 mg 2 mL, IV Push, q4hr pantoprazole 40 mg VIAL 40 mg, IV Push, qDay sodium chloride 0.9% 10 ml syringe maddie flush 0.09 gram(s) 10 mL, IR Drain, Daily sodium chloride 0.9% 10 ml syringe maddie flush 10 mL, IR Drain, q8h Continuous: (1) HYDROmorphone AUTOMOTIVE ALIGNMENT SPECIALIST in 50mL NS 10 mg 10 mg 50 mL, Intravenous PRN: (2) acetaminophen 325 mg Tablet 650 mg 2 tab(s), Oral, q4h naloxone 0.4 mg/mL (1mL) vial 0.2 mg 0.5 mL, IV Push, AsDirected Lab Results 10/05 06:23 WBC: 5.2 Hgb: 12.1 Hct: 36.6 Platelet: 321 Neutrophil %: 48.1 L Glucose Level: 80 Sodium Level: 143 Potassium Level: 3.9 BUN: <5.0 L Creatinine Lvl (s): 0.64 10/04 04:12 WBC: 5.8 Hgb: 11.9 L Hct: 35.2 Platelet: 312 Neutrophil %: 56.2 Glucose Level: 88 Sodium Level: 142 Potassium Level: 3.9 BUN: 5.0 L Creatinine Lvl (s): 0.69 Imaging Results and Diagnostics NM Kidney Diuretic Result Date: October 03, 2022 Verified By: GONZALEZ MCRAE DO CLINICAL STATEMENT: IMPRESSION: 1. Prompt left renal perfusion, however, with diminished corticalaccumulation and diminutive size of the left kidney. Prompt excretion andclearance, both through the left ureter and nephrostomy tube, withoutevidence of mechanical obstruction.2. Normal right renal perfusion, cortical accu mulation, and excretion,without evidence of mechanical obstruction.3. LEFT:RIGHT Differential Function (%): 27: 73 IR Neph Cath-Neph Ureter w/Guide Left Result Date: October 02, 2022 Verified By: JANET FLOREZ MD CLINICAL STATEMENT: IMPRESSION: 1. Successful placement of a new 8 [place] 26 cm left nephroureteral stent. 2. Left nephrostogram and antegrade pyelography Assessment/Plan Pyelonephritis - Directly admitted for abdominal pain and vast array of urinary symptoms. Pain is improving, remained afebrile, vitals stable - Left Nephrostomy tube in place since 2019. Last IR nephrostomy tube exchange 08/14/2022 - Recurrent history of complicated urinary tract infection with ESBL / E. coli / Enterococcus / Klebsiella pneumonia sensitive to Meropenem, Imipenem, Ertapenem, Gentamicin - Last admission on 08/08/22 she was treated with Meropenem and transitioned to PO Macrobid - Nephrostomy UOP ranging from 250-300 cc - Continue Meropenem 1 g q8hrs - Urinalysis: large blood, large protein, large LE. urine culture from left nephrostomy tube pending - UA (Clean catch) -15 ketone, Mod blood, 100 protein, Mod LE, 25-50WBC, 2+ bacteria, 25-50 RBC UCx p - Blood culture NGTD - MIVF weight based, 90 ml/hr - Strict I's and O's - s/p IR Nephrostomy exchange on 10/02/22 -Urine cx NGTD. Repeat obtained. -IV Abx per ID. Will discuss duration of therapy with ID. -UOP: L neph tube 500 cc/24 hrs. Voided only 200 cc urine /24 hrs. History of cervical cancer - Stage IIIB SCC of cervix - S/p Chemoradiation, currently in remission -Recent CT 08/02/22 unremarkable for signs of cancer recurrence -Recent Pap smear (07/15) negative for cervical dysplasia, however positive for HPV. For 6 months follow up per Dr. Martin's last note - Port-A-Cath in place -Consider repeat CT Abd/Pelvis. Will discuss with Dr. Martin. -NM Renal scan showed no obstructive symptoms of bilateral kidneys. Differential of Renal function 27/73. -Pt's pain appears to be chronic in nature. Will discuss pain management with Dr. Martin. -Renal function Left:right, 27:73%. -AUTOMOTIVE ALIGNMENT SPECIALIST continued for now, consider d/c to oral pain meds. Starte Gabapentin 300 mg qHS. Tobacco - Daily nicotine patch Anxiety / Depression - Pt has had SI to multiple SSRIs. We discussed her trauma history yesterday and I asked if she would like for us to reach out to psychiatry. Pt was seen, but did not think her visit was productive. She ahs requested we cancel out consultation. Asthma -Pt doing well, will continue to monitor. Obstructive uropathy s/p Left Nephrostomy tube - Initially placed in 2019. - s/p exchange on 10/02/22 Poor appetite, improving - MIVF weight based - Nutrition consulted -Marinol started. Admit to regular floor Condition: Stable Vitals: q4hr Activity: Ambulate Diet: Regular IVF: HLIV DVT Prophylaxis: SCDs, Heparin Consults: IR Patient is a 31 yo woman with a history of stage IIIB cervical cancer s/p chemoradiation,has a history obstructive uropathy with left nephrostomy tube in place; admitted for abdominal pain, urinary symptoms concerning for pyelonephritis. Disposition: Will continue to tighten pain control. Pt for CT urogram today to r/o obstruction of right kidney. Digitally Signed by DILLAN KUMAR MD on 10/05/2022 08:33 AM [facility] [id number] Note Date of Service 10/04/22 Chief Complaint Abdominal pain Difficulty urinating Subjective Pt seen and examined. She is very tearful. We discussed her pain and emotional state at length yesterday. She is overwhelmed and depressed. She has abdominal pain and back pain that she states is thepain she had before her admission. No emesis, but she does have nausea. She has been voiding occasionally, although a bit less. No fevers, chills, or calf pain. Objective Vitals and Measurements T: 36.7 C (Oral) TMIN: 36.7 C (Oral) TMAX: 36.9 C (Oral) HR: 88 RR: 18 BP: 108/73 SpO2: 98% Intake and Output 7AM Yesterday to 7AM Today Intake and Output (Last 24 hours) Intake Oral Intake 720.00 Output Urine Voided 250.00 Urostomy Output: 2025.00 Total Summary Total Intake 720.00 Total Output 2275.00 Fluid Balance -1555.00 Physical Exam General: A&Ox3, no apparent distress, tearful Resp: clear to auscultation bilaterally CV: normal rate and rhythm Abdomen: Soft, mildly tender, nonrigid, no peritoneal signs, positive bowel sounds throughout. Pelvis: No signs of active vaginal bleeding Ext: No lower extremity edema. No cyanosis. Negative Homans sign Spine: Left CVA tenderness improved, No leaking at nephrostomy site, no erythema, swelling. Tender to palpation. Nephrostomy bag recently emptied UOP: Voiding spontaneously as well Weight Dosing Weight: 50.4 kg (09/30/22) Dosing Weight: 50.4 kg (09/30/22) Medications Medications (13) Active Scheduled: (10) docusate sodium 100 mg Capsule 100 mg 1 cap(s), Oral, BID heparin 5,000 units/mL (1 mL) vial 5,000 unit(s) 1 mL, Subcutaneous, q8h LORAZEPam 1 mg Tablet 1 mg 1 tab(s), Oral, TID meropenem 1,000 mg, IV Piggyback, q8h Nicoderm patch REMOVAL 1 EA, Miscellaneous, q24h nicotine 7 mg/24 hr ER patch 7 mg 1 patch(es), Transdermal, q24h ondansetron 2 mg/ 1 mL 2 mL INJ 4 mg 2 mL, IV Push, q4hr pantoprazole 40 mg VIAL 40 mg, IV Push, qDay sodium chloride 0.9% 10 ml syringe maddie flush 0.09 gram(s) 10 mL, IR Drain, Daily sodium chloride 0.9% 10 ml syringe maddie flush 10 mL, IR Drain, q8h Continuous: (1) HYDROmorphone AUTOMOTIVE ALIGNMENT SPECIALIST in 50mL NS 10 mg 10 mg 50 mL, Intravenous PRN: (2) acetaminophen 325 mg Tablet 650 mg 2 tab(s), Oral, q4h naloxone 0.4 mg/mL (1mL) vial 0.2 mg 0.5 mL, IV Push, AsDirected Lab Results 10/04 04:12 WBC: 5.8 Hgb: 11.9 L Hct: 35.2 Platelet: 312 Neutrophil %: 56.2 Glucose Level: 88 Sodium Level: 142 Potassium Level: 3.9 BUN: 5.0 L Creatinine Lvl (s): 0.69 10/03 06:26 WBC: 7.6 Hgb: 11.8 L Hct: 34.7 Platelet: 302 Neutrophil %: 67.3 Glucose Level: 82 Sodium Level: 140 Potassium Level: 4.0 BUN: 7.0 L Creatinine Lvl (s): 0.64 Imaging Results and Diagnostics NM Kidney Diuretic Result Date: October 03, 2022 Verified By: GONZALEZ MCRAE DO CLINICAL STATEMENT: IMPRESSION: 1. Prompt left renal perfusion, however, with diminished corticalaccumulation and diminutive size of the left kidney. Prompt excretion andclearance, both through the left ureter and nephrostomy tube, withoutevidence of mechanical obstruction.2. Normal right renal perfusion, cortical accu mulation, and excretion,without evidence of mechanical obstruction.3. LEFT:RIGHT Differential Function (%): 27: 73 IR Neph Cath-Neph Ureter w/Guide Left Result Date: October 02, 2022 Verified By: JANET FLOREZ MD CLINICAL STATEMENT: IMPRESSION: 1. Successful placement of a new 8 [place] 26 cm left nephroureteral stent. 2. Left nephrostogram and antegrade pyelography Assessment/Plan Patient is a 31 yo woman with a history of stage IIIB cervical cancer s/p chemoradiation,has a history obstructive uropathy with left nephrostomy tube in place; admitted for abdominal pain, urinary symptoms concerning for pyelonephritis. Admit to regular floor Condition: Stable Vitals: q4hr Activity: Ambulate Diet: Regular IVF: HLIV DVT Prophylaxis: SCDs, Heparin Consults: IR Pyelonephritis - Directly admitted for abdominal pain and vast array of urinary symptoms. Pain is improving, remained afebrile, vitals stable - Left Nephrostomy tube in place since 2019. Last IR nephrostomy tube exchange 08/14/2022 - Recurrent history of complicated urinary tract infection with ESBL / E. coli / Enterococcus / Klebsiella pneumonia sensitive to Meropenem, Imipenem, Ertapenem, Gentamicin - Last admission on 08/08/22 she was treated with Meropenem and transitioned to PO Macrobid - Nephrostomy UOP ranging from 250-300 cc - Continue Meropenem 1 g q8hrs - Urinalysis: large blood, large protein, large LE. urine culture from left nephrostomy tube pending - UA (Clean catch) -15 ketone, Mod blood, 100 protein, Mod LE, 25-50WBC, 2+ bacteria, 25-50 RBC UCx p - Blood culture NGTD - MIVF weight based, 90 ml/hr - Strict I's and O's - s/p IR Nephrostomy exchange on 10/02/22 -Urine cx NGTD. Repeat obtained. -IV Abx per ID. Will discuss duration of therapy with ID. History of cervical cancer - Stage IIIB SCC of cervix - S/p Chemoradiation, currently in remission -Recent CT 08/02/22 unremarkable for signs of cancer recurrence -Recent Pap smear (07/15) negative for cervical dysplasia, however positive for HPV. For 6 months follow up per Dr. Martin's last note - Port-A-Cath in place -Consider repeat CT Abd/Pelvis. Will discuss with Dr. Martin. -NM Renal scan showed no obstructive symptoms of bilateral kidneys. Differential of Renal function . -Pt's pain appears to be chronic in nature at this time and separate from her pyelonephritis. We will stop the AUTOMOTIVE ALIGNMENT SPECIALIST and transition to oral medications. Will discuss further management with Dr. Martin. Tobacco - Daily nicotine patch Anxiety / Depression - Pt has had SI to multiple SSRIs. We discussed her trauma history yesterday and I asked if she would like for us to reach out to psychiatry. Pt was seen, but did not think her visit was productive. She ahs requested we cancel out consultation. Asthma -Pt doing well, will continue to monitor. Obstructive uropathy s/p Left Nephrostomy tube - Initially placed in 2019. - s/p exchange on 10/02/22 - Patient emptied bag for 600 cc overnight, RN also emptied the bag but did not record output Poor appetite, improving - MIVF weight based - Nutrition consulted Disposition: management of pyelonephritis, continue IV antibiotics, Blood culture NGTD. Repeat obtained. Pt is very tearful and overwhelmed. I actively listened to her and provided support. I discussed her pain with her at length and reassured her that it is a priority to help her feel more comfortable before discharge. I will discuss her pain management with Dr. Martin. Digitally Signed by DILLAN KUMAR MD on 10/04/2022 06:55 AM [facility] [id number] Infectious disease Progress note Date of Service 10/04/2022 Objective Vitals and Measurements T: 36.7 C (Oral) TMIN: 36.7 C (Oral) TMAX: 36.9 C (Oral) HR: 88 RR: 18 BP: 108/73 SpO2: 98% Physical Exam Chart reviewed, patient examined. Patient is alert and oriented x3, tearful and a bit anxious but FSC, resting in bed on Dilaudid AUTOMOTIVE ALIGNMENT SPECIALIST pump. Dilaudid PCR syringe is empty, RN notified. No c/o VD. Reports continued nausea today. Reports continued left flank, overall unchanged. Reports LLQ/RLQ abdominal pain, worsened from yesterday. Reports dysuria when she does urinate, although does not urinate often per her reports. No other new complaints this AM. Respirations easy and nonlabored, 98% on RA. Patient has remained afebrile for the last 24 hours. Patient is in Stringent isolation. Patient reports she is very unhappy with [facility] resident who assessed her this morning. Requesting to speak with Dr Martin. tsa screener notified. SGOT 12, SGPT <7 FOCUSED ASSESSMENT: CVS: Regular S1S2 LUNGS: Clear bilaterally, denies SOB ABDOMEN: Nondistended, rounded, soft, RLQ/LLQ tenderness/left flank tenderness- worsening today, + bowel sounds, passing gas, continued nausea, denies constipation SKIN: No rashes noted, pale in overall coloring INCISIONS/DRESSINGS: Left nephrostomy tube dressing clean and intact EXTREMITIES: Generalized fatigue LINES/TUBES/DRAINS: Right chest port dressing dry & intact, no drainage or erythema at site. Left nephrostomy tube with slightly cloudy yellow output with sediment noted to bag CURRENT ANTIBIOTICS: Meropenem 1g IV Q8h 09/30 - present CULTURE RESULTS/ANA LILIA: 09/30 Urine Culture -F >100,000 cfu/ml Multiple bacterial morphotypes present Probable Contamination 09/30 Blood Culture 11/03 no growth to date -P 10/02 Urine Culture -F No growth at 48 hours Weight Dosing Weight: 50.4 kg (09/30/22) Dosing Weight: 50.4 kg (09/30/22) Medications Medications (13) Active Scheduled: (10) docusate sodium 100 mg Capsule 100 mg 1 cap(s), Oral, BID heparin 5,000 units/mL (1 mL) vial 5,000 unit(s) 1 mL, Subcutaneous, q8h LORAZEPam 1 mg Tablet 1 mg 1 tab(s), Oral, TID meropenem 1,000 mg, IV Piggyback, q8h Nicoderm patch REMOVAL 1 EA, Miscellaneous, q24h nicotine 7 mg/24 hr ER patch 7 mg 1 patch(es), Transdermal, q24h ondansetron 2 mg/ 1 mL 2 mL INJ 4 mg 2 mL, IV Push, q4hr pantoprazole 40 mg VIAL 40 mg, IV Push, qDay sodium chloride 0.9% 10 ml syringe maddie flush 0.09 gram(s) 10 mL, IR Drain, Daily sodium chloride 0.9% 10 ml syringe maddie flush 10 mL, IR Drain, q8h Continuous: (1) HYDROmorphone AUTOMOTIVE ALIGNMENT SPECIALIST in 50mL NS 10 mg 10 mg 50 mL, Intravenous PRN: (2) acetaminophen 325 mg Tablet 650 mg 2 tab(s), Oral, q4h naloxone 0.4 mg/mL (1mL) vial 0.2 mg 0.5 mL, IV Push, AsDirected Lab Results 10/04 04:12 WBC: 5.8 Hgb: 11.9 L Hct: 35.2 Platelet: 312 Neutrophil %: 56.2 Glucose Level: 88 Sodium Level: 142 Potassium Level: 3.9 BUN: 5.0 L Creatinine Lvl (s): 0.69 10/03 06:26 WBC: 7.6 Hgb: 11.8 L Hct: 34.7 Platelet: 302 Neutrophil %: 67.3 Glucose Level: 82 Sodium Level: 140 Potassium Level: 4.0 BUN: 7.0 L Creatinine Lvl (s): 0.64 Imaging Results and Diagnostics NM Kidney Diuretic Result Date: October 03, 2022 Verified By: GONZALEZ MCRAE DO CLINICAL STATEMENT: IMPRESSION: 1. Prompt left renal perfusion, however, with diminished corticalaccumulation and diminutive size of the left kidney. Prompt excretion andclearance, both through the left ureter and nephrostomy tube, withoutevidence of mechanical obstruction.2. Normal right renal perfusion, cortical accu mulation, and excretion,without evidence of mechanical obstruction.3. LEFT:RIGHT Differential Function (%): 27: 73 Problem List History of cervical cancer status post chemoradiation Left nephrostomy tube in place, last exchanged 08/14/2022 Acute pyelonephritis Complicated UTI Chest port in place Digitally Signed by Emili Clark RN on 10/04/2022 09:27 AM [facility] [id number] Infectious disease Progress note Date of Service 10/04/2022 Objective Vitals and Measurements T: 36.7 C (Oral) TMIN: 36.7 C (Oral) TMAX: 36.9 C (Oral) HR: 88 RR: 18 BP: 108/73 SpO2: 98% Physical Exam Chart reviewed, patient examined. Patient is alert and oriented x3, tearful and a bit anxious but FSC, resting in bed on Dilaudid AUTOMOTIVE ALIGNMENT SPECIALIST pump. Dilaudid PCR syringe is empty, RN notified. No c/o VD. Reports continued nausea today. Reports continued left flank, overall unchanged. Reports LLQ/RLQ abdominal pain, worsened from yesterday. Reports dysuria when she does urinate, although does not urinate often per her reports. No other new complaints this AM. Respirations easy and nonlabored, 98% on RA. Patient has remained afebrile for the last 24 hours. Patient is in Stringent isolation. Patient reports she is very unhappy with SE[facility] resident who assessed her this morning. Requesting to speak with Dr Martin. tsa screener notified. SGOT 12, SGPT <7 FOCUSED ASSESSMENT: CVS: Regular S1S2 LUNGS: Clear bilaterally, denies SOB ABDOMEN: Nondistended, rounded, soft, RLQ/LLQ tenderness/left flank tenderness- worsening today, + bowel sounds, passing gas, continued nausea, denies constipation SKIN: No rashes noted, pale in overall coloring INCISIONS/DRESSINGS: Left nephrostomy tube dressing clean and intact EXTREMITIES: Generalized fatigue LINES/TUBES/DRAINS: Right chest port dressing dry & intact, no drainage or erythema at site. Left nephrostomy tube with slightly cloudy yellow output with sediment noted to bag CURRENT ANTIBIOTICS: Meropenem 1g IV Q8h 09/30 - present CULTURE RESULTS/ANA LILIA: 09/30 Urine Culture -F >100,000 cfu/ml Multiple bacterial morphotypes present Probable Contamination 09/30 Blood Culture 11/03 no growth to date -P 10/02 Urine Culture -F No growth at 48 hours Weight Dosing Weight: 50.4 kg (09/30/22) Dosing Weight: 50.4 kg (09/30/22) Medications Medications (13) Active Scheduled: (10) docusate sodium 100 mg Capsule 100 mg 1 cap(s), Oral, BID heparin 5,000 units/mL (1 mL) vial 5,000 unit(s) 1 mL, Subcutaneous, q8h LORAZEPam 1 mg Tablet 1 mg 1 tab(s), Oral, TID meropenem 1,000 mg, IV Piggyback, q8h Nicoderm patch REMOVAL 1 EA, Miscellaneous, q24h nicotine 7 mg/24 hr ER patch 7 mg 1 patch(es), Transdermal, q24h ondansetron 2 mg/ 1 mL 2 mL INJ 4 mg 2 mL, IV Push, q4hr pantoprazole 40 mg VIAL 40 mg, IV Push, qDay sodium chloride 0.9% 10 ml syringe maddie flush 0.09 gram(s) 10 mL, IR Drain, Daily sodium chloride 0.9% 10 ml syringe maddie flush 10 mL, IR Drain, q8h Continuous: (1) HYDROmorphone AUTOMOTIVE ALIGNMENT SPECIALIST in 50mL NS 10 mg 10 mg 50 mL, Intravenous PRN: (2) acetaminophen 325 mg Tablet 650 mg 2 tab(s), Oral, q4h naloxone 0.4 mg/mL (1mL) vial 0.2 mg 0.5 mL, IV Push, AsDirected Lab Results 10/04 04:12 WBC: 5.8 Hgb: 11.9 L Hct: 35.2 Platelet: 312 Neutrophil %: 56.2 Glucose Level: 88 Sodium Level: 142 Potassium Level: 3.9 BUN: 5.0 L Creatinine Lvl (s): 0.69 10/03 06:26 WBC: 7.6 Hgb: 11.8 L Hct: 34.7 Platelet: 302 Neutrophil %: 67.3 Glucose Level: 82 Sodium Level: 140 Potassium Level: 4.0 BUN: 7.0 L Creatinine Lvl (s): 0.64 Imaging Results and Diagnostics NM Kidney Diuretic Result Date: October 03, 2022 Verified By: GONZALEZ MCRAE DO CLINICAL STATEMENT: IMPRESSION: 1. Prompt left renal perfusion, however, with diminished corticalaccumulation and diminutive size of the left kidney. Prompt excretion andclearance, both through the left ureter and nephrostomy tube, withoutevidence of mechanical obstruction.2. Normal right renal perfusion, cortical accu mulation, and excretion,without evidence of mechanical obstruction.3. LEFT:RIGHT Differential Function (%): 27: 73 Problem List History of cervical cancer status post chemoradiation Left nephrostomy tube in place, last exchanged 08/14/2022 Acute pyelonephritis Complicated UTI Chest port in place Digitally Signed by Emili Clark RN on 10/04/2022 09:27 AM [facility] [id number] Note Date of Service 10/04/22 Chief Complaint Abdominal pain Difficulty urinating Subjective Pt seen and examined. She is very tearful. We discussed her pain and emotional state at length yesterday. She is overwhelmed and depressed. She has abdominal pain and back pain that she states is thepain she had before her admission. No emesis, but she does have nausea. She has been voiding occasionally, although a bit less. No fevers, chills, or calf pain. Objective Vitals and Measurements T: 36.7 C (Oral) TMIN: 36.7 C (Oral) TMAX: 36.9 C (Oral) HR: 88 RR: 18 BP: 108/73 SpO2: 98% Intake and Output 7AM Yesterday to 7AM Today Intake and Output (Last 24 hours) Intake Oral Intake 720.00 Output Urine Voided 250.00 Urostomy Output: 2024.00 Total Summary Total Intake 720.00 Total Output 2275.00 Fluid Balance -1555.00 Physical Exam General: A&Ox3, no apparent distress, tearful Resp: clear to auscultation bilaterally CV: normal rate and rhythm Abdomen: Soft, mildly tender, nonrigid, no peritoneal signs, positive bowel sounds throughout. Pelvis: No signs of active vaginal bleeding Ext: No lower extremity edema. No cyanosis. Negative Homans sign Spine: Left CVA tenderness improved, No leaking at nephrostomy site, no erythema, swelling. Tender to palpation. Nephrostomy bag recently emptied UOP: Voiding spontaneously as well Weight Dosing Weight: 50.4 kg (09/30/22) Dosing Weight: 50.4 kg (09/30/22) Medications Medications (13) Active Scheduled: (10) docusate sodium 100 mg Capsule 100 mg 1 cap(s), Oral, BID heparin 5,000 units/mL (1 mL) vial 5,000 unit(s) 1 mL, Subcutaneous, q8h LORAZEPam 1 mg Tablet 1 mg 1 tab(s), Oral, TID meropenem 1,000 mg, IV Piggyback, q8h Nicoderm patch REMOVAL 1 EA, Miscellaneous, q24h nicotine 7 mg/24 hr ER patch 7 mg 1 patch(es), Transdermal, q24h ondansetron 2 mg/ 1 mL 2 mL INJ 4 mg 2 mL, IV Push, q4hr pantoprazole 40 mg VIAL 40 mg, IV Push, qDay sodium chloride 0.9% 10 ml syringe maddie flush 0.09 gram(s) 10 mL, IR Drain, Daily sodium chloride 0.9% 10 ml syringe maddie flush 10 mL, IR Drain, q8h Continuous: (1) HYDROmorphone AUTOMOTIVE ALIGNMENT SPECIALIST in 50mL NS 10 mg 10 mg 50 mL, Intravenous PRN: (2) acetaminophen 325 mg Tablet 650 mg 2 tab(s), Oral, q4h naloxone 0.4 mg/mL (1mL) vial 0.2 mg 0.5 mL, IV Push, AsDirected Lab Results 10/04 04:12 WBC: 5.8 Hgb: 11.9 L Hct: 35.2 Platelet: 312 Neutrophil %: 56.2 Glucose Level: 88 Sodium Level: 142 Potassium Level: 3.9 BUN: 5.0 L Creatinine Lvl (s): 0.69 10/03 06:26 WBC: 7.6 Hgb: 11.8 L Hct: 34.7 Platelet: 302 Neutrophil %: 67.3 Glucose Level: 82 Sodium Level: 140 Potassium Level: 4.0 BUN: 7.0 L Creatinine Lvl (s): 0.64 Imaging Results and Diagnostics NM Kidney Diuretic Result Date: October 03, 2022 Verified By: GONZALEZ MCRAE DO CLINICAL STATEMENT: IMPRESSION: 1. Prompt left renal perfusion, however, with diminished corticalaccumulation and diminutive size of the left kidney. Prompt excretion andclearance, both through the left ureter and nephrostomy tube, withoutevidence of mechanical obstruction.2. Normal right renal perfusion, cortical accu mulation, and excretion,without evidence of mechanical obstruction.3. LEFT:RIGHT Differential Function (%): 27: 73 IR Neph Cath-Neph Ureter w/Guide Left Result Date: October 02, 2022 Verified By: JANET FLOREZ MD CLINICAL STATEMENT: IMPRESSION: 1. Successful placement of a new 8 [place] 26 cm left nephroureteral stent. 2. Left nephrostogram and antegrade pyelography Assessment/Plan Patient is a 31 yo woman with a history of stage IIIB cervical cancer s/p chemoradiation,has a history obstructive uropathy with left nephrostomy tube in place; admitted for abdominal pain, urinary symptoms concerning for pyelonephritis. Admit to regular floor Condition: Stable Vitals: q4hr Activity: Ambulate Diet: Regular IVF: HLIV DVT Prophylaxis: SCDs, Heparin Consults: IR Pyelonephritis - Directly admitted for abdominal pain and vast array of urinary symptoms. Pain is improving, remained afebrile, vitals stable - Left Nephrostomy tube in place since 2019. Last IR nephrostomy tube exchange 08/14/2022 - Recurrent history of complicated urinary tract infection with ESBL / E. coli / Enterococcus / Klebsiella pneumonia sensitive to Meropenem, Imipenem, Ertapenem, Gentamicin - Last admission on 08/08/22 she was treated with Meropenem and transitioned to PO Macrobid - Nephrostomy UOP ranging from 250-300 cc - Continue Meropenem 1 g q8hrs - Urinalysis: large blood, large protein, large LE. urine culture from left nephrostomy tube pending - UA (Clean catch) -15 ketone, Mod blood, 100 protein, Mod LE, 25-50WBC, 2+ bacteria, 25-50 RBC UCx p - Blood culture NGTD - MIVF weight based, 90 ml/hr - Strict I's and O's - s/p IR Nephrostomy exchange on 10/02/22 -Urine cx NGTD. Repeat obtained. -IV Abx per ID. Will discuss duration of therapy with ID. History of cervical cancer - Stage IIIB SCC of cervix - S/p Chemoradiation, currently in remission -Recent CT 08/02/22 unremarkable for signs of cancer recurrence -Recent Pap smear (07/15) negative for cervical dysplasia, however positive for HPV. For 6 months follow up per Dr. Martin's last note - Port-A-Cath in place -Consider repeat CT Abd/Pelvis. Will discuss with Dr. Martin. -NM Renal scan showed no obstructive symptoms of bilateral kidneys. Differential of Renal function . -Pt's pain appears to be chronic in nature at this time and separate from her pyelonephritis. We will stop the AUTOMOTIVE ALIGNMENT SPECIALIST and transition to oral medications. Will discuss further management with Dr. Martin. Tobacco - Daily nicotine patch Anxiety / Depression - Pt has had SI to multiple SSRIs. We discussed her trauma history yesterday and I asked if she would like for us to reach out to psychiatry. Pt was seen, but did not think her visit was productive. She ahs requested we cancel out consultation. Asthma -Pt doing well, will continue to monitor. Obstructive uropathy s/p Left Nephrostomy tube - Initially placed in 2019. - s/p exchange on 10/02/22 - Patient emptied bag for 600 cc overnight, RN also emptied the bag but did not record output Poor appetite, improving - MIVF weight based - Nutrition consulted Disposition: management of pyelonephritis, continue IV antibiotics, Blood culture NGTD. Repeat obtained. Pt is very tearful and overwhelmed. I actively listened to her and provided support. I discussed her pain with her at length and reassured her that it is a priority to help her feel more comfortable before discharge. I will discuss her pain management with Dr. Martin. Digitally Signed by DILLAN KUMAR MD on 10/04/2022 06:55 AM [facility] [id number] Note Date of Service 10/03/2022 Chief Complaint Abdominal pain Difficulty urinating Subjective Patient reports her acute pain has improved with the Dilaudid AUTOMOTIVE ALIGNMENT SPECIALIST however her chronic pain at the nephrostomy tube site is ongoing. She reports being frustrated having to be dealing with her nephrostomy tube since it has been placed. She tolerated her diet. Denies fever, chills, night sweats, vomiting. She reports clear yellow urine in the nephrostomy bag. She emptied it herself for a total of 600 ml Objective Vitals and Measurements T: 36.7 C (Oral) TMIN: 36.7 C (Oral) TMAX: 36.8 C (Oral) HR: 96 RR: 16 BP: 106/73 SpO2: 97% Intake and Output 7AM Yesterday to 7AM Today Intake and Output (Last 24 hours) Intake Output Urostomy Output: 250.00 Total Summary Total Intake 0.00 Total Output 250.00 Fluid Balance -250.00 Physical Exam General: A&Ox3, no apparent distress, tearful Resp: clear to auscultation bilaterally CV: normal rate and rhythm Abdomen: Soft, mildly tender, nonrigid, no peritoneal signs, positive bowel sounds throughout. Pelvis: No signs of active vaginal bleeding Ext: No lower extremity edema. No cyanosis. Negative Homans sign Spine: Left CVA tenderness improved, No leaking at nephrostomy site, no erythema, swelling. Tender to palpation. Nephrostomy bag recently emptied UOP: Voiding spontaneously as well Weight Dosing Weight: 50.4 kg (09/30/22) Dosing Weight: 50.4 kg (09/30/22) Medications Medications (13) Active Scheduled: (9) docusate sodium 100 mg Capsule 100 mg 1 cap(s), Oral, BID heparin 5,000 units/mL (1 mL) vial 5,000 unit(s) 1 mL, Subcutaneous, q8h meropenem 1,000 mg, IV Piggyback, q8hr Nicoderm patch REMOVAL 1 EA, Miscellaneous, q24h nicotine 7 mg/24 hr ER patch 7 mg 1 patch(es), Transdermal, q24h ondansetron 2 mg/ 1 mL 2 mL INJ 4 mg 2 mL, IV Push, q4hr pantoprazole 40 mg VIAL 40 mg, IV Push, qDay sodium chloride 0.9% 10 ml syringe maddie flush 0.09 gram(s) 10 mL, IR Drain, Daily sodium chloride 0.9% 10 ml syringe maddie flush 10 mL, IR Drain, q8h Continuous: (1) HYDROmorphone AUTOMOTIVE ALIGNMENT SPECIALIST in 50mL NS 10 mg 10 mg 50 mL, Intravenous PRN: (3) acetaminophen 325 mg Tablet 650 mg 2 tab(s), Oral, q4h LORAZEPam 1 mg Tablet 1 mg 1 tab(s), Oral, TID naloxone 0.4 mg/mL (1mL) vial 0.2 mg 0.5 mL, IV Push, AsDirected Lab Results 10/02 03:56 WBC: 6.3 Hgb: 11.5 L Hct: 33.4 L Platelet: 286 Neutrophil %: 59.5 Glucose Level: 82 Sodium Level: 140 Potassium Level: 4.1 BUN: 9.0 Creatinine Lvl (s): 0.64 Imaging Results and Diagnostics IR Neph Cath-Neph Ureter w/Guide Left Result Date: October 02, 2022 Verified By: JANET FLOREZ MD CLINICAL STATEMENT: IMPRESSION: 1. Successful placement of a new 8 [place] 26 cm left nephroureteral stent. 2. Left nephrostogram and antegrade pyelography EKG No qualifying data available. Assessment/Plan Patient is a 31 yo woman with a history of stage IIIB cervical cancer s/p chemoradiation,has a history obstructive uropathy with left nephrostomy tube in place; admitted for abdominal pain, urinary symptoms concerning for pyelonephritis. >> Admit to regular floor >> Condition: Stable >> Vitals: q4hr >> Activity: Ambulate >> Diet: Regular >> IVF: NS 90 cc/hr >> DVT Prophylaxis: SCDs >> Consults: IR Pyelonephritis - Directly admitted for abdominal pain and vast array of urinary symptoms. Pain is improving, remained afebrile, vitals stable - Left Nephrostomy tube in place since 2019. Last IR nephrostomy tube exchange 08/14/2022 - Recurrent history of complicated urinary tract infection with ESBL / E. coli / Enterococcus / Klebsiella pneumonia sensitive to Meropenem, Imipenem, Ertapenem, Gentamicin - Last admission on 08/08/22 she was treated with Meropenem and transitioned to PO Macrobid - Nephrostomy UOP ranging from 250-300 cc - Continue Meropenem 1 g q8hrs - Urinalysis: large blood, large protein, large LE. urine culture from left nephrostomy tube pending - UA (Clean catch) -15 ketone, Mod blood, 100 protein, Mod LE, 25-50WBC, 2+ bacteria, 25-50 RBC UCx p - Blood culture NGTD - NM Kidney diuretic scan pending for today - MIVF weight based, 90 ml/hr - Strict I's and O's - s/p IR Nephrostomy exchange on 10/02/22 History of cervical cancer - Stage IIIB SCC of cervix - S/p Chemoradiation, currently in remission -Recent CT 08/02/22 unremarkable for signs of cancer recurrence -Recent Pap smear (07/15) negative for cervical dysplasia, however positive for HPV. For 6 months follow up per Dr. Martin's last note - Port-A-Cath in place Tobacco - Daily nicotine patch Anxiety / Depression - Requesting psych consult Asthma - Not in acute exacerbation Obstructive uropathy s/p Left Nephrostomy tube - Initially placed in 2019. - s/p exchange on 10/02/22 - NM Kidney diuretic scan pending for today - Patient emptied bag for 600 cc overnight, RN also emptied the bag but did not record output Poor appetite, improving - MIVF weight based - Nutrition consulted Disposition: management of pyelonephritis, continue IV antibiotics, Blood culture NGTD, for NM Kidney scan. Will discuss discontinuing AUTOMOTIVE ALIGNMENT SPECIALIST Dilaudid with Dr. Hilliard today. Digitally Signed by PRIMO CANELA MD on 10/03/2022 06:57 AM [facility] [id number] Note ORIGINAL EXAMINATION: NUCLEAR MEDICINE RENAL SCAN10/03/2022 1:50 pm TECHNIQUE: The patient received an intravenous injection of 11.6 mCi of Tc-99m MAG3. Perfusion and sequential images of the kidneys were then acquired over the next 30 minutes. At 12 minutes, the patient received an intravenous injection of 20 milligrams of furosemide (Lasix). Following that, a post-void view was obtained. Computer quantification of renal function was performed. Computer quantification of diuretic excretory response was then performed. COMPARISON: May 23, 2021 CT HISTORY: ORDERING SYSTEM PROVIDED HISTORY: Reason for Exam: Decreased voiding in the setting of cervical cancer (in remission). Left nephrostomy in place. Pt voiding until recently. FINDINGS: LEFT: The left kidney appears diminutive in size. There is prompt left renal perfusion. There is prompt cortical accumulation, however overall cortical accumulation is significantly diminished compared to the right kidney. There is evidence of left renal excretion and clearance through the left ureter as well as the nephrostomy tube with and without the administration of Lasix. Peak to half peak of 11.5 minutes. RIGHT: There is prompt arterial perfusion to the right kidney. There is appropriate cortical accumulation, with rapid excretion into and clearance from the right renal collecting system prior to Lasix. Further augmented clearance with administration of Lasix. Peak to half peak of 8 minutes. Mild focal residual accumulation over the right superior renal pole may reflect area of radiotracer within a prominent upper pole renal calyx. LEFT:RIGHT Differential Function (%): 27: 73 IMPRESSION: 1. Prompt left renal perfusion, however, with diminished cortical accumulation and diminutive size of the left kidney. Prompt excretion and clearance, both through the left ureter and nephrostomy tube, without evidence of mechanical obstruction. 2. Normal right renal perfusion, cortical accumulation, and excretion, without evidence of mechanical obstruction. 3. LEFT:RIGHT Differential Function (%): 27: 73 Interpreted by: Gonzalez Mcrae DO Preliminary Report By: Gonzalez Mcrae DO Electronically signed By Gonzalez Mcrae DO Dictated Date: 10/03/2022 2:07:34 PM Prelim Date: 10/03/2022 2:27:51 PM Sign Date: 10/03/2022 2:27:51 PM Ordering Provider: DILLAN KUMAR [facility] [id number] Note ORIGINAL EXAMINATION: NUCLEAR MEDICINE RENAL SCAN10/03/2022 1:50 pm TECHNIQUE: The patient received an intravenous injection of 11.6 mCi of Tc-99m MAG3. Perfusion and sequential images of the kidneys were then acquired over the next 30 minutes. At 12 minutes, the patient received an intravenous injection of 20 milligrams of furosemide (Lasix). Following that, a post-void view was obtained. Computer quantification of renal function was performed. Computer quantification of diuretic excretory response was then performed. COMPARISON: May 23, 2021 CT HISTORY: ORDERING SYSTEM PROVIDED HISTORY: Reason for Exam: Decreased voiding in the setting of cervical cancer (in remission).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 in the subcutaneous tissues. Aspiration of urine from the left renal pelvis was performed. A nephrostogram as well as antegrade pyelography was obtained. Using an Amplatz superstiff guidewire access into the urinary bladder was achieved. The existing catheter was readily removed. A new 8 [place] 26 cm nephroureteral stent was placed. Its distal loop was formed within the bladder and the proximal loop within the renal pelvis. A follow-up nephrostogram was obtained. Evaluation of the images was performed. Sterile dressings were placed at the access site. The patient was discharged in stable condition. FINDINGS: There are no signs of filling defects within the renal collecting system. The new catheter was satisfactory placed along the left ureter with flow of contrast into the urinary bladder. Filling defects are noted within the bladder, could represent debris. IMPRESSION: 1. Successful placement of a new 8 [place] 26 cm left nephroureteral stent. 2. Left nephrostogram and antegrade pyelography Interpreted by: Janet Florez Preliminary Report By: Janet Florez Electronically signed By Janet Florez Dictated Date: 10/02/2022 7:44:31 PM Prelim Date: 10/02/2022 7:49:25 PM Sign Date: 10/02/2022 7:49:25 PM Ordering Provider: [facility]11-30-2022 Note Date of Service 10/02/2022 Chief Complaint Abdominal pain Difficulty urinating Subjective Patient seen and examined. She is upset this morning, she was not given her diet order in time and eventually was too upset to eat after it was brought to her. Her pain has improved significantly with the AUTOMOTIVE ALIGNMENT SPECIALIST Dilaudid. She denies nausea, vomiting, fever, chills, night sweats. She is ambulating to the bathroom to void. She denies chest pain, shortness of breath. Did not sleep well overnight due tofrequent RN checks. Objective Vitals and Measurements T: 36.4 C (Oral) TMIN: 36.4 C (Oral) TMAX: 36.9 C (Oral) HR: 75 RR: 18 BP: 115/86 SpO2: 100% Intake and Output 7AM Yesterday to 7AM Today Intake and Output (Last 24 hours) Intake Oral Intake 0.00 Output Urostomy Output: 550.00 Stool Count 0.00 Total Summary Total Intake 0.00 Total Output 550.00 Fluid Balance -550.00 Physical Exam General: A&Ox3, no apparent distress Resp: clear to auscultation bilaterally CV: normal rate and rhythm Abdomen: Soft generalized tenderness, nonrigid, no peritoneal signs, positive bowel sounds throughout Pelvis: No signs of active vaginal bleeding Ext: No lower extremity edema. No cyanosis. Negative Homans sign Spine: Left CVA tenderness improved, No leaking at nephrostomy site, urine in nephrostomy bag appears cloudy, no clots in the tubing, 250 cc urine in the bag, draining well UOP: Voiding spontaneously as well Weight Dosing Weight: 50.4 kg (09/30/22) Dosing Weight: 50.4 kg (09/30/22) Medications Medications (9) Active Scheduled: (5) docusate sodium 100 mg Capsule 100 mg 1 cap(s), Oral, BID meropenem 1,000 mg, IV Piggyback, q8hr ondansetron 2 mg/ 1 mL 2 mL INJ 4 mg 2 mL, IV Push, q4hr pantoprazole 40 mg VIAL 40 mg, IV Push, qDay sodium chloride 0.9% 10 ml syringe maddie flush 0.09 gram(s) 10 mL, IR Drain, Daily Continuous: (1) HYDROmorphone AUTOMOTIVE ALIGNMENT SPECIALIST in 50mL NS 10 mg 10 mg 50 mL, Intravenous PRN: (3) acetaminophen 325 mg Tablet 650 mg 2 tab(s), Oral, q4h LORAZEPam 1 mg Tablet 1 mg 1 tab(s), Oral, TID naloxone 0.4 mg/mL (1mL) vial 0.2 mg 0.5 mL, IV Push, AsDirected Lab Results 10/02 03:56 WBC: 6.3 Hgb: 11.5 L Hct: 33.4 L Platelet: 286 Neutrophil %: 59.5 Glucose Level: 82 Sodium Level: 140 Potassium Level: 4.1 BUN: 9.0 Creatinine Lvl (s): 0.64 10/01 04:19 WBC: 6.5 Hgb: 12.0 Hct: 35.9 Platelet: 294 Neutrophil %: 56.9 Glucose Level: 83 Sodium Level: 143 Potassium Level: 3.8 BUN: 11.0 Creatinine Lvl (s): 0.76 EKG No qualifying data available. Assessment/Plan Patient is a 31 yo woman with a history of stage IIIB cervical cancer s/p chemoradiation,has a history obstructive uropathy with left nephrostomy tube in place; admitted for abdominal pain, urinary symptoms concerning for pyelonephritis. >> Admit to regular floor >> Condition: Stable >> Vitals: q4hr >> Activity: Ambulate >> Diet: Regular, NPO at [place] (CLD with medications) >> IVF: NS 90 cc/hr >> DVT Prophylaxis: SCDs >> Consults: IR for Nephrostomy tube exchange Pyelonephritis - Directly admitted for abdominal pain and vast array of urinary symptoms. Pain is improving, remained afebrile, vitals stable - Left Nephrostomy tube in place since 2019. Last IR nephrostomy tube exchange 08/14/2022 - Recurrent history of complicated urinary tract infection with ESBL / E. coli / Enterococcus / Klebsiella pneumonia sensitive to Meropenem, Imipenem, Ertapenem, Gentamicin - Last admission on 08/08/22 she was treated with Meropenem and transitioned to PO Macrobid - Nephrostomy UOP ranging from 250-300 cc - Continue Meropenem 1 g q8hrs - Urinalysis: large blood, large protein, large LE. urine culture from left nephrostomy tube pending - Urinalysis and urine culture from spontaneous void pending. discussed with RN this morning to obtain UA & UCx as patient is voiding - Blood culture NGTD - NM Kidney diuretic scan pending for 10/03/2022 - Creatinine from today was 0.64, GFR > 60 - MIVF weight based, 90 ml/hr - Strict I's and O's - For IR Nephrostomy exchange today at 1100. Can resume diet after. History of cervical cancer - Stage IIIB SCC of cervix - S/p Chemoradiation, currently in remission -Recent CT 08/02/22 unremarkable for signs of cancer recurrence -Recent Pap smear (07/15) negative for cervical dysplasia, however positive for HPV. For 6 months follow up per Dr. Martin's last note - Port-A-Cath in place Tobacco - For Nicotine patch if patient desires - Smokes 1/2 PPD Anxiety - Declined counseling - Continue Ativan home dose PRN Asthma - Not in acute exacerbation Obstructive uropathy s/p Left Nephrostomy tube - Initially placed in 2019. - Last exchanged 08/14/22 - NM Kidney diuretic scan pending on 10/03/2022 Poor appetite - MIVF weight based - NPO overnight, clears with medications - Nutrition consulted - Can consider appetite stimulants and supplements Disposition: management of pyelonephritis, continue IV antibiotics, Blood culture NGTD, urine cultures pending, for NM Kidney scan, NPO at [place] for nephrostomy tube exchange, resume diet after. Will discuss discontinuing AUTOMOTIVE ALIGNMENT SPECIALIST Dilaudid after nephrostomy exchange. Digitally Signed by PRIMO CANELA MD on 10/02/2022 06:39 AM [facility] [id number] Note ORIGINAL PROCEDURE: INTRODUCTION-NEPHRO TUBE MODERATE CONSCIOUS SEDATION 10/02/2022 HISTORY: ORDERING SYSTEM PROVIDED HISTORY: Reason for Exam: Left hydronephrosis, change of current nephrostomy tube TECHNIQUE: Fluoroscopy CONTRAST: 10 cc Omnipaque 300 SEDATION: 0.5 mgversed and 75 mcg fentanyl were titrated intravenously for moderate sedation monitored under my direction. Total intraservice time of sedation was 20 minutes. The patient's vital signs were monitored throughout the procedure and recorded in the patient's medical record by the nurse. The patient has an active AUTOMOTIVE ALIGNMENT SPECIALIST pump present. Very generous lidocaine was utilized FLUOROSCOPY DOSE AND TYPE OR TIME AND EXPOSURES: Fluoroscopy time 0.8min Total DLP: 5 mGy Number of images: 2 DESCRIPTION OF PROCEDURE: Informed consent was obtained after a detailed explanation of the procedure including risks, benefits, and alternatives. Webster protocol was observed. Sterile gowns, masks, hats and gloves utilized for maximal sterile barrier. The left flank was prepped and draped using sterile technique. 1% lidocaine was used local anesthesia along the tract as well as in the subcutaneous tissues. Aspiration of urine from the left renal pelvis was performed. A nephrostogram as well as antegrade pyelography was obtained. Using an Amplatz superstiff guidewire access into the urinary bladder was achieved. The existing catheter was readily removed. A new 8 [place] 26 cm nephroureteral stent was placed. Its distal loop was formed within the bladder and the proximal loop within the renal pelvis. A follow-up nephrostogram was obtained. Evaluation of the images was performed. Sterile dressings were placed at the access site. The patient was discharged in stable condition. FINDINGS: There are no signs of filling defects within the renal collecting system. The new catheter was satisfactory placed along the left ureter with flow of contrast into the urinary bladder. Filling defects are noted within the bladder, could represent debris. IMPRESSION: 1. Successful placement of a new 8 [place] 26 cm left nephroureteral stent. 2. Left nephrostogram and antegrade pyelography Interpreted by: Janet Florez Preliminary Report By: Janet Florez Electronically signed By Janet Florez Dictated Date: 10/02/2022 7:44:31 PM Prelim Date: 10/02/2022 7:49:25 PM Sign Date: 10/02/2022 7:49:25 PM Ordering Provider: [facility]11-30-2022 Note Date of Service 10/02/2022 Chief Complaint Abdominal pain Difficulty urinating Subjective Patient seen and examined. She is upset this morning, she was not given her diet order in time and eventually was too upset to eat after it was brought to her. Her pain has improved significantly with the AUTOMOTIVE ALIGNMENT SPECIALIST Dilaudid. She denies nausea, vomiting, fever, chills, night sweats. She is ambulating to the bathroom to void. She denies chest pain, shortness of breath. Did not sleep well overnight due tofrequent RN checks. Objective Vitals and Measurements T: 36.4 C (Oral) TMIN: 36.4 C (Oral) TMAX: 36.9 C (Oral) HR: 75 RR: 18 BP: 115/86 SpO2: 100% Intake and Output 7AM Yesterday to 7AM Today Intake and Output (Last 24 hours) Intake Oral Intake 0.00 Output Urostomy Output: 550.00 Stool Count 0.00 Total Summary Total Intake 0.00 Total Output 550.00 Fluid Balance -550.00 Physical Exam General: A&Ox3, no apparent distress Resp: clear to auscultation bilaterally CV: normal rate and rhythm Abdomen: Soft generalized tenderness, nonrigid, no peritoneal signs, positive bowel sounds throughout Pelvis: No signs of active vaginal bleeding Ext: No lower extremity edema. No cyanosis. Negative Homans sign Spine: Left CVA tenderness improved, No leaking at nephrostomy site, urine in nephrostomy bag appears cloudy, no clots in the tubing, 250 cc urine in the bag, draining well UOP: Voiding spontaneously as well Weight Dosing Weight: 50.4 kg (09/30/22) Dosing Weight: 50.4 kg (09/30/22) Medications Medications (9) Active Scheduled: (5) docusate sodium 100 mg Capsule 100 mg 1 cap(s), Oral, BID meropenem 1,000 mg, IV Piggyback, q8hr ondansetron 2 mg/ 1 mL 2 mL INJ 4 mg 2 mL, IV Push, q4hr pantoprazole 40 mg VIAL 40 mg, IV Push, qDay sodium chloride 0.9% 10 ml syringe maddie flush 0.09 gram(s) 10 mL, IR Drain, Daily Continuous: (1) HYDROmorphone AUTOMOTIVE ALIGNMENT SPECIALIST in 50mL NS 10 mg 10 mg 50 mL, Intravenous PRN: (3) acetaminophen 325 mg Tablet 650 mg 2 tab(s), Oral, q4h LORAZEPam 1 mg Tablet 1 mg 1 tab(s), Oral, TID naloxone 0.4 mg/mL (1mL) vial 0.2 mg 0.5 mL, IV Push, AsDirected Lab Results 10/02 03:56 WBC: 6.3 Hgb: 11.5 L Hct: 33.4 L Platelet: 286 Neutrophil %: 59.5 Glucose Level: 82 Sodium Level: 140 Potassium Level: 4.1 BUN: 9.0 Creatinine Lvl (s): 0.64 10/01 04:19 WBC: 6.5 Hgb: 12.0 Hct: 35.9 Platelet: 294 Neutrophil %: 56.9 Glucose Level: 83 Sodium Level: 143 Potassium Level: 3.8 BUN: 11.0 Creatinine Lvl (s): 0.76 EKG No qualifying data available. Assessment/Plan Patient is a 31 yo woman with a history of stage IIIB cervical cancer s/p chemoradiation,has a history obstructive uropathy with left nephrostomy tube in place; admitted for abdominal pain, urinary symptoms concerning for pyelonephritis. >> Admit to regular floor >> Condition: Stable >> Vitals: q4hr >> Activity: Ambulate >> Diet: Regular, NPO at [place] (CLD with medications) >> IVF: NS 90 cc/hr >> DVT Prophylaxis: SCDs >> Consults: IR for Nephrostomy tube exchange Pyelonephritis - Directly admitted for abdominal pain and vast array of urinary symptoms. Pain is improving, remained afebrile, vitals stable - Left Nephrostomy tube in place since 2019. Last IR nephrostomy tube exchange 08/14/2022 - Recurrent history of complicated urinary tract infection with ESBL / E. coli / Enterococcus / Klebsiella pneumonia sensitive to Meropenem, Imipenem, Ertapenem, Gentamicin - Last admission on 08/08/22 she was treated with Meropenem and transitioned to PO Macrobid - Nephrostomy UOP ranging from 250-300 cc - Continue Meropenem 1 g q8hrs - Urinalysis: large blood, large protein, large LE. urine culture from left nephrostomy tube pending - Urinalysis and urine culture from spontaneous void pending. discussed with RN this morning to obtain UA & UCx as patient is voiding - Blood culture NGTD - NM Kidney diuretic scan pending for 10/03/2022 - Creatinine from today was 0.64, GFR > 60 - MIVF weight based, 90 ml/hr - Strict I's and O's - For IR Nephrostomy exchange today at 1100. Can resume diet after. History of cervical cancer - Stage IIIB SCC of cervix - S/p Chemoradiation, currently in remission -Recent CT 08/02/22 unremarkable for signs of cancer recurrence -Recent Pap smear (07/15) negative for cervical dysplasia, however positive for HPV. For 6 months follow up per Dr. Martin's last note - Port-A-Cath in place Tobacco - For Nicotine patch if patient desires - Smokes 1/2 PPD Anxiety - Declined counseling - Continue Ativan home dose PRN Asthma - Not in acute exacerbation Obstructive uropathy s/p Left Nephrostomy tube - Initially placed in 2019. - Last exchanged 08/14/22 - NM Kidney diuretic scan pending on 10/03/2022 Poor appetite - MIVF weight based - NPO overnight, clears with medications - Nutrition consulted - Can consider appetite stimulants and supplements Disposition: management of pyelonephritis, continue IV antibiotics, Blood culture NGTD, urine cultures pending, for NM Kidney scan, NPO at [place] for nephrostomy tube exchange, resume diet after. Will discuss discontinuing AUTOMOTIVE ALIGNMENT SPECIALIST Dilaudid after nephrostomy exchange. Digitally Signed by PRIMO CANELA MD on 10/02/2022 06:39 AM [id number] Infectious disease Progress note Date of Service 10/02/2022 Objective Vitals and Measurements T: 36.4 C (Oral) TMIN: 36.4 C (Oral) TMAX: 36.9 C (Oral) HR: 75 RR: 18 BP: 115/86 SpO2: 100% Physical Exam Chart reviewed, patient examined. Patient is alert and oriented x3, rather flat in affect, resting in bed on Dilaudid AUTOMOTIVE ALIGNMENT SPECIALIST pump. No c/o VD. Reports ongoing nausea, requesting Ativan and Zofran. Reports generalized fatigue, did not sleep well overnight. Reports continued bilateral flank as well as abdominal pain, although does report improvement with AUTOMOTIVE ALIGNMENT SPECIALIST. No other new complaints this AM, bedside RNmade aware of patient medication requests. Respirations easy and nonlabored, 100% on RA. Patient has remained afebrile for the last 24 hours. Patient is in Stringent isolation. SGOT 11, SGPT <7 FOCUSED ASSESSMENT: CVS: Regular S1S2 LUNGS: Clear bilaterally, SOB with pain, denies cough ABDOMEN: Nondistended, rounded, soft, generalized tenderness/bilateral flank tenderness, hypoactivebowel sounds, not passing gas, nausea-requesting Zofran SKIN: No rashes noted, pale in overall coloring INCISIONS/DRESSINGS: Left nephrostomy tub dressing loose but clean and intact EXTREMITIES: Generalized fatigue LINES/TUBES/DRAINS: Right chest port dressing dry & intact, no drainage or erythema at site. Left nephrostomy tube with cloudy yellow malodorous drainage. CURRENT ANTIBIOTICS: Meropenem 1g IV Q8h 09/30 - present CULTURE RESULTS/ANA LILIA: 09/30 Urine Culture -P In-lab 09/30 Blood Culture 11/03 no growth to date -P 10/02 Urine Culture -P Collected Weight Dosing Weight: 50.4 kg (09/30/22) Dosing Weight: 50.4 kg (09/30/22) Medications Medications (9) Active Scheduled: (5) docusate sodium 100 mg Capsule 100 mg 1 cap(s), Oral, BID meropenem 1,000 mg, IV Piggyback, q8hr ondansetron 2 mg/ 1 mL 2 mL INJ 4 mg 2 mL, IV Push, q4hr pantoprazole 40 mg VIAL 40 mg, IV Push, qDay sodium chloride 0.9% 10 ml syringe maddie flush 0.09 gram(s) 10 mL, IR Drain, Daily Continuous: (1) HYDROmorphone AUTOMOTIVE ALIGNMENT SPECIALIST in 50mL NS 10 mg 10 mg 50 mL, Intravenous PRN: (3) acetaminophen 325 mg Tablet 650 mg 2 tab(s), Oral, q4h LORAZEPam 1 mg Tablet 1 mg 1 tab(s), Oral, TID naloxone 0.4 mg/mL (1mL) vial 0.2 mg 0.5 mL, IV Push, AsDirected Lab Results 10/02 03:56 WBC: 6.3 Hgb: 11.5 L Hct: 33.4 L Platelet: 286 Neutrophil %: 59.5 Glucose Level: 82 Sodium Level: 140 Potassium Level: 4.1 BUN: 9.0 Creatinine Lvl (s): 0.64 10/01 04:19 WBC: 6.5 Hgb: 12.0 Hct: 35.9 Platelet: 294 Neutrophil %: 56.9 Glucose Level: 83 Sodium Level: 143 Potassium Level: 3.8 BUN: 11.0 Creatinine Lvl (s): 0.76 Imaging Results and Diagnostics 10/02 NM Kidney Scan Pending completion and results Problem List History of cervical cancer status post chemoradiation Left nephrostomy tube in place, last exchanged 08/14/2022 Acute pyelonephritis Complicated UTI Chest port in place Digitally Signed by Emili Clark RN on 10/02/2022 08:54 AM [id number] Infectious disease Progress note Date of Service 10/02/2022 Objective Vitals and Measurements T: 36.4 C (Oral) TMIN: 36.4 C (Oral) TMAX: 36.9 C (Oral) HR: 75 RR: 18 BP: 115/86 SpO2: 100% Physical Exam Chart reviewed, patient examined. Patient is alert and oriented x3, rather flat in affect, resting in bed on Dilaudid AUTOMOTIVE ALIGNMENT SPECIALIST pump. No c/o VD. Reports ongoing nausea, requesting Ativan and Zofran. Reports generalized fatigue, did not sleep well overnight. Reports continued bilateral flank as well as abdominal pain, although does report improvement with AUTOMOTIVE ALIGNMENT SPECIALIST. No other new complaints this AM, bedside RNmade aware of patient medication requests. Respirations easy and nonlabored, 100% on RA. Patient has remained afebrile for the last 24 hours. Patient is in Stringent isolation. SGOT 11, SGPT <7 FOCUSED ASSESSMENT: CVS: Regular S1S2 LUNGS: Clear bilaterally, SOB with pain, denies cough ABDOMEN: Nondistended, rounded, soft, generalized tenderness/bilateral flank tenderness, hypoactivebowel sounds, not passing gas, nausea-requesting Zofran SKIN: No rashes noted, pale in overall coloring INCISIONS/DRESSINGS: Left nephrostomy tub dressing loose but clean and intact EXTREMITIES: Generalized fatigue LINES/TUBES/DRAINS: Right chest port dressing dry & intact, no drainage or erythema at site. Left nephrostomy tube with cloudy yellow malodorous drainage. CURRENT ANTIBIOTICS: Meropenem 1g IV Q8h 09/30 - present CULTURE RESULTS/ANA LILIA: 09/30 Urine Culture -P In-lab 09/30 Blood Culture 11/03 no growth to date -P 10/02 Urine Culture -P Collected Weight Dosing Weight: 50.4 kg (09/30/22) Dosing Weight: 50.4 kg (09/30/22) Medications Medications (9) Active Scheduled: (5) docusate sodium 100 mg Capsule 100 mg 1 cap(s), Oral, BID meropenem 1,000 mg, IV Piggyback, q8hr ondansetron 2 mg/ 1 mL 2 mL INJ 4 mg 2 mL, IV Push, q4hr pantoprazole 40 mg VIAL 40 mg, IV Push, qDay sodium chloride 0.9% 10 ml syringe maddie flush 0.09 gram(s) 10 mL, IR Drain, Daily Continuous: (1) HYDROmorphone AUTOMOTIVE ALIGNMENT SPECIALIST in 50mL NS 10 mg 10 mg 50 mL, Intravenous PRN: (3) acetaminophen 325 mg Tablet 650 mg 2 tab(s), Oral, q4h LORAZEPam 1 mg Tablet 1 mg 1 tab(s), Oral, TID naloxone 0.4 mg/mL (1mL) vial 0.2 mg 0.5 mL, IV Push, AsDirected Lab Results 10/02 03:56 WBC: 6.3 Hgb: 11.5 L Hct: 33.4 L Platelet: 286 Neutrophil %: 59.5 Glucose Level: 82 Sodium Level: 140 Potassium Level: 4.1 BUN: 9.0 Creatinine Lvl (s): 0.64 10/01 04:19 WBC: 6.5 Hgb: 12.0 Hct: 35.9 Platelet: 294 Neutrophil %: 56.9 Glucose Level: 83 Sodium Level: 143 Potassium Level: 3.8 BUN: 11.0 Creatinine Lvl (s): 0.76 Imaging Results and Diagnostics 10/02 NM Kidney Scan Pending completion and results Problem List History of cervical cancer status post chemoradiation Left nephrostomy tube in place, last exchanged 08/14/2022 Acute pyelonephritis Complicated UTI Chest port in place Digitally Signed by Emili Clark RN on 10/02/2022 08:54 AM [id number] Note Date of Service 10/02/2022 Chief Complaint Abdominal pain Difficulty urinating Subjective Patient seen and examined. She is upset this morning, she was not given her diet order in time and eventually was too upset to eat after it was brought to her. Her pain has improved significantly with the AUTOMOTIVE ALIGNMENT SPECIALIST Dilaudid. She denies nausea, vomiting, fever, chills, night sweats. She is ambulating to the bathroom to void. She denies chest pain, shortness of breath. Did not sleep well overnight due tofrequent RN checks. Objective Vitals and Measurements T: 36.4 C (Oral) TMIN: 36.4 C (Oral) TMAX: 36.9 C (Oral) HR: 75 RR: 18 BP: 115/86 SpO2: 100% Intake and Output 7AM Yesterday to 7AM Today Intake and Output (Last 24 hours) Intake Oral Intake 0.00 Output Urostomy Output: 550.00 Stool Count 0.00 Total Summary Total Intake 0.00 Total Output 550.00 Fluid Balance -550.00 Physical Exam General: A&Ox3, no apparent distress Resp: clear to auscultation bilaterally CV: normal rate and rhythm Abdomen: Soft generalized tenderness, nonrigid, no peritoneal signs, positive bowel sounds throughout Pelvis: No signs of active vaginal bleeding Ext: No lower extremity edema. No cyanosis. Negative Homans sign Spine: Left CVA tenderness improved, No leaking at nephrostomy site, urine in nephrostomy bag appears cloudy, no clots in the tubing, 250 cc urine in the bag, draining well UOP: Voiding spontaneously as well Weight Dosing Weight: 50.4 kg (09/30/22) Dosing Weight: 50.4 kg (09/30/22) Medications Medications (9) Active Scheduled: (5) docusate sodium 100 mg Capsule 100 mg 1 cap(s), Oral, BID meropenem 1,000 mg, IV Piggyback, q8hr ondansetron 2 mg/ 1 mL 2 mL INJ 4 mg 2 mL, IV Push, q4hr pantoprazole 40 mg VIAL 40 mg, IV Push, qDay sodium chloride 0.9% 10 ml syringe maddie flush 0.09 gram(s) 10 mL, IR Drain, Daily Continuous: (1) HYDROmorphone AUTOMOTIVE ALIGNMENT SPECIALIST in 50mL NS 10 mg 10 mg 50 mL, Intravenous PRN: (3) acetaminophen 325 mg Tablet 650 mg 2 tab(s), Oral, q4h LORAZEPam 1 mg Tablet 1 mg 1 tab(s), Oral, TID naloxone 0.4 mg/mL (1mL) vial 0.2 mg 0.5 mL, IV Push, AsDirected Lab Results 10/02 03:56 WBC: 6.3 Hgb: 11.5 L Hct: 33.4 L Platelet: 286 Neutrophil %: 59.5 Glucose Level: 82 Sodium Level: 140 Potassium Level: 4.1 BUN: 9.0 Creatinine Lvl (s): 0.64 10/01 04:19 WBC: 6.5 Hgb: 12.0 Hct: 35.9 Platelet: 294 Neutrophil %: 56.9 Glucose Level: 83 Sodium Level: 143 Potassium Level: 3.8 BUN: 11.0 Creatinine Lvl (s): 0.76 EKG No qualifying data available. Assessment/Plan Patient is a 31 yo woman with a history of stage IIIB cervical cancer s/p chemoradiation,has a history obstructive uropathy with left nephrostomy tube in place; admitted for abdominal pain, urinary symptoms concerning for pyelonephritis. >> Admit to regular floor >> Condition: Stable >> Vitals: q4hr >> Activity: Ambulate >> Diet: Regular, NPO at CO (CLD with medications) >> IVF: NS 90 cc/hr >> DVT Prophylaxis: SCDs >> Consults: IR for Nephrostomy tube exchange Pyelonephritis - Directly admitted for abdominal pain and vast array of urinary symptoms. Pain is improving, remained afebrile, vitals stable - Left Nephrostomy tube in place since 2019. Last IR nephrostomy tube exchange 08/14/2022 - Recurrent history of complicated urinary tract infection with ESBL / E. coli / Enterococcus / Klebsiella pneumonia sensitive to Meropenem, Imipenem, Ertapenem, Gentamicin - Last admission on 08/08/22 she was treated with Meropenem and transitioned to PO Macrobid - Nephrostomy UOP ranging from 250-300 cc - Continue Meropenem 1 g q8hrs - Urinalysis: large blood, large protein, large LE. urine culture from left nephrostomy tube pending - Urinalysis and urine culture from spontaneous void pending. discussed with RN this morning to obtain UA & UCx as patient is voiding - Blood culture NGTD - NM Kidney diuretic scan pending for 10/03/2022 - Creatinine from today was 0.64, GFR > 60 - MIVF weight based, 90 ml/hr - Strict I's and O's - For IR Nephrostomy exchange today at 1100. Can resume diet after. History of cervical cancer - Stage IIIB SCC of cervix - S/p Chemoradiation, currently in remission -Recent CT 08/02/22 unremarkable for signs of cancer recurrence -Recent Pap smear (07/15) negative for cervical dysplasia, however positive for HPV. For 6 months follow up per Dr. Martin's last note - Port-A-Cath in place Tobacco - For Nicotine patch if patient desires - Smokes 1/2 PPD Anxiety - Declined counseling - Continue Ativan home dose PRN Asthma - Not in acute exacerbation Obstructive uropathy s/p Left Nephrostomy tube - Initially placed in 2019. - Last exchanged 08/14/22 - NM Kidney diuretic scan pending on 10/03/2022 Poor appetite - MIVF weight based - NPO overnight, clears with medications - Nutrition consulted - Can consider appetite stimulants and supplements Disposition: management of pyelonephritis, continue IV antibiotics, Blood culture NGTD, urine cultures pending, for NM Kidney scan, NPO at CO for nephrostomy tube exchange, resume diet after. Will discuss discontinuing AUTOMOTIVE ALIGNMENT SPECIALIST Dilaudid after nephrostomy exchange. Digitally Signed by PRIMO CANELA MD on 10/02/2022 06:39 AM [facility] [id number] Infectious disease Consult note Date of Service 10/01/2022 Reason for Consultation Pyelonephritis Referring Physician Dr. Martin History of Present Illness Patient is a 31 yo Woman with history of Stage IIIB cervical cancer s/p chemoradiation currently in remission. Patient was directly admitted after presenting with worsening lower abdominal pain, urinary retention. Patient has a left Nephrostomy tube in place since 2019, it was last exchanged during her last admission on 08/14/2022 after initially presenting with dysuria and decreased urine output. During that admission she was found to have an ESBL UTI sensitive to Meropenem. She was started on Meropenem and transitioned to Macrobid at the time of discharge. Since her hospital discharge patient reported she was asymptomatic for 2 weeks, she had great urine output from her left neph rostomy tube and voiding spontaneously. However since then she has noted a progressive decline in her voids. About a week ago she was unable to void spontaneously, but her nephrostomy tube had increased output. She did reports malodorous urine output and noted three days of hematuria with small clots. ID consultation was placed for antibiotic management for acute pyelonephritis. Review of Systems Left-sided flank pain and dysuria, denies fever and 10 point review of system otherwise was negative Physical Exam Vitals and Measurements T: 36.5 C (Oral) TMIN: 36.5 C (Oral) TMAX: 36.6 C (Oral) HR: 60 RR: 18 BP: 117/82 SpO2: 95% HT: 167.6 cm WT: 50.4 kg BMI: 17.94 Weight Dosing Weight: 50.4 kg (09/30/22) Dosing Weight: 50.4 kg (09/30/22) Left nephrostomy tube in place draining patent General Appearance: Awake, alert, and oriented HEENT: Normocephaly. PERRL Neck: Normal without lymphadenopathy Cardiac: Heart regular rhythm Lungs: Clear Abdomen: Soft, left-sided CVA tenderness Extremities:Warm without clubbing, cyanosis or edema. Neurological: No deficits Skin: Warm, dry, intact. No rashes Psychiatric: No abnormal behaviors Lab Results 10/01 04:19 WBC: 6.5 Hgb: 12.0 Hct: 35.9 Platelet: 294 Neutrophil %: 56.9 Glucose Level: 83 Sodium Level: 143 Potassium Level: 3.8 BUN: 11.0 Creatinine Lvl (s): 0.76 09/30 13:19 WBC: 7.2 Hgb: 13.7 Hct: 40.8 Platelet: 335 Neutrophil %: 60.9 Glucose Level: 99 Sodium Level: 142 Potassium Level: 3.7 BUN: 9.0 Creatinine Lvl (s): 0.76 Assessment/Plan 2. Cervical cancer 3. Obstructive uropathy 4. Asthma History of cervical cancer status post chemoradiation Left nephrostomy tube in place, last exchanged 08/14/2022 Acute pyelonephritis Complicated UTI Chest port in place Patient is a 31 yo woman with a history of stage IIIB cervical cancer s/p chemoradiation,has a history obstructive uropathy with left nephrostomy tube in place; admitted for abdominal pain, urinary symptoms concerning for pyelonephritis. Over the past 24 hours, patient has remained afebrile. No leukocytosis. Left nephrostomy tube is inplace draining patent. Prior to admission, the patient reports she had malodorous urine output and 3 days of hematuria with small clots. Urine culture this admission is pending. UA with microscopy was loaded with WBCs Prior urine cultures have revealed ESBL E. coli, Klebsiella and Enterococcus faecalis Nuclear medicine renal scan is pending SEAM RUBBER/onc board and following Discussed with patient, she expressed her wishes to have the nephrostomy tube removed, will defer to the primary team/urology to have this discussion with the patient, in the meantime we will continue IV antibiotic therapy with meropenem, also patient may benefit from CT scan of the abdomen and pelvic area Thank you for this consultation, will follow I was present for Brenda López LPN , and personally directed, all components of the patient's complete evaluation and management documented by the scribe today. I have personally examined the patient and reviewed all diagnostic data. I have reviewed all of this documentation by the scribe. It documents the history obtained, examination performed, diagnostic testing results compiled by him/her,and discharge information. Problem List/Past Medical History Ongoing Acute kidney injury Anxiety Asthma Cervical cancer Complicated UTI (urinary tract infection) Decreased appetite Dehydration DVT prophylaxis History of chemotherapy History of COVID-19 History of radiation therapy Left flank pain Moderate protein-calorie malnutrition Nausea and vomiting Nephrostomy status Obstructive uropathy Port-A-Cath in place Premature menopause Pyelonephritis Historical Cervicitis Chronic kidney disease, stage 3 (moderate) Encounter for antineoplastic chemotherapy Hydronephrosis of left kidney Mass of cervix Tinnitus Procedure/Surgical History Nephrostomy with tube drainage: 01/10/21 JJ stent: 11/15/20 Radiation: 06/2020 Cervical biopsy: 2019 Tumor cells, benign: 2001 Cannulation of Portacath Nephrostomy with tube drainage Medications Inpatient Ativan, 1 mg= 1 tab(s), Oral, TID, PRN Bolus NS 1000 mL, 1000 mL, IV Bolus, Once Colace, 100 mg= 1 cap(s), Oral, BID Dilaudid AUTOMOTIVE ALIGNMENT SPECIALIST (0.2mg/1 mL) 10 mg, 10 mg= 50 mL, Intravenous lidocaine 1% preservative-free injectable solution, 2.5 mg= 0.25 mL, Intradermal, prep pharm lidocaine 1% preservative-free injectable solution, 2.5 mg= 0.25 mL, Intradermal, prep pharm meropenem Narcan, 0.2 mg= 0.5 mL, IV Push, AsDirected, PRN Normal Saline Flush,, 0.09 gram(s)= 10 mL, IR Drain, Daily Protonix IV Push, 40 mg, IV Push, qDay Tylenol, 650 mg= 2 tab(s), Oral, q4h, PRN Zofran, 4 mg= 2 mL, IV Push, q4h Home acetaminophen-oxyCODONE 325 mg-5 mg oral tablet, 1 tab(s), Oral, q6hr Ativan 1 mg oral tablet, 1 mg= 1 tab(s), Oral, TID, PRN, 4 refills lidocaine 5% topical patch, 1 patch(es), Topical, qDay naproxen 250 mg oral tablet, 250 mg= 1 tab(s), Oral, BID Normal Saline Flush 0.9% injectable solution, 0.09 gram(s)= 10 mL, IR Drain, Daily, 12 refills promethazine 12.5 mg rectal suppository, 12.5 mg= 1 supp, Rectal, q6h, PRN, Not taking Tylenol 325 mg oral capsule, 650 mg, Oral, q4h, PRN Zofran 4 mg oral tablet, 4 mg= 1 tab(s), Oral, q6h, PRN, 1 refills Allergies penicillin Social History Alcohol - Denies Alcohol Use, 06/13/2020 Use: Current. Type: Beer. Frequency: 1-2 times per week., 12/21/2021 Home/Environment - No Risk, 06/13/2020 Domestic Concerns: None. Living situation: Home/Independent. Safe place to go: Yes. Lives In: Mobile home, 1st floor bedroom, 1st floor bathroom. Current Home Treatments None. Professional Skilled Services or Special Community Resources None. Financial concerns: No. Marital Status: Unmarried., 06/13/2020 Nutrition/Health - No Risk, 06/13/2020 Type of diet: Regular. Appetite Fair. Eating Difficulties None. Caffeine intake amount: 1 can pop per day., 06/13/2020 Sexual Sexually active: Yes. First active at age: 18 Years. Current partners: 1. Number of lifetime partners: 7. Self described orientation: Straight or heterosexual. Other contraceptive use: condoms. History of sexual abuse: No. Gender Identity: Identifies as female., 04/12/2020 Substance Abuse - Denies Substance Abuse, 06/13/2020 Use: Never., 04/12/2020 Tobacco Nicotine Use: 5-9 cigarettes (between 1/4 to 1/2 pack)/day in last 30 days. Type: Cigarettes. Tobacco use per day: 10. Number of years: 10. Started at age: 19 Years. Previous treatment: None. Ready to change: Yes., 04/12/2020 Family History Alcohol abuse: Father. Asthma: Mother. Bladder cancer: Negative: Mother, Father, Sister, Brother, Daughter, Son and Grandparent. Breast cancer: Mother. COPD - Chronic obstructive pulmonary disease: Mother. Cancer: Sister. Diabetes: Grandparent. Heart attack: Mother. Heart disease: Mother. Hypertension: Mother. Kidney stone: Mother. Renal cancer: Negative: Mother, Father, Sister, Brother, Daughter, Son and Grandparent. Stroke: Father and Grandparent. Substance abuse: Father. Immunizations hepatitis B pediatric vaccine: 0 unknown unit (06/16/01) hepatitis B pediatric vaccine: 0 unknown unit (06/21/98) measles/mumps/rubella virus vaccine: 0 unknown unit (06/16/01) Digitally Signed by Brenda López on 10/01/2022 10:58 AM Digitally Signed by MARGOTH RUVALCABA BA, MD on 10/01/2022 11:23 AM [id number] Infectious disease Consult note Date of Service 10/01/2022 Reason for Consultation Pyelonephritis Referring Physician Dr. Martin History of Present Illness Patient is a 31 yo Woman with history of Stage IIIB cervical cancer s/p chemoradiation currently in remission. Patient was directly admitted after presenting with worsening lower abdominal pain, urinary retention. Patient has a left Nephrostomy tube in place since 2019, it was last exchanged during her last admission on 08/14/2022 after initially presenting with dysuria and decreased urine output. During that admission she was found to have an ESBL UTI sensitive to Meropenem. She was started on Meropenem and transitioned to Macrobid at the time of discharge. Since her hospital discharge patient reported she was asymptomatic for 2 weeks, she had great urine output from her left neph rostomy tube and voiding spontaneously. However since then she has noted a progressive decline in her voids. About a week ago she was unable to void spontaneously, but her nephrostomy tube had increased output. She did reports malodorous urine output and noted three days of hematuria with small clots. ID consultation was placed for antibiotic management for acute pyelonephritis. Review of Systems Left-sided flank pain and dysuria, denies fever and 10 point review of system otherwise was negative Physical Exam Vitals and Measurements T: 36.5 C (Oral) TMIN: 36.5 C (Oral) TMAX: 36.6 C (Oral) HR: 60 RR: 18 BP: 117/82 SpO2: 95% HT: 167.6 cm WT: 50.4 kg BMI: 17.94 Weight Dosing Weight: 50.4 kg (09/30/22) Dosing Weight: 50.4 kg (09/30/22) Left nephrostomy tube in place draining patent General Appearance: Awake, alert, and oriented HEENT: Normocephaly. PERRL Neck: Normal without lymphadenopathy Cardiac: Heart regular rhythm Lungs: Clear Abdomen: Soft, left-sided CVA tenderness Extremities:Warm without clubbing, cyanosis or edema. Neurological: No deficits Skin: Warm, dry, intact. No rashes Psychiatric: No abnormal behaviors Lab Results 10/01 04:19 WBC: 6.5 Hgb: 12.0 Hct: 35.9 Platelet: 294 Neutrophil %: 56.9 Glucose Level: 83 Sodium Level: 143 Potassium Level: 3.8 BUN: 11.0 Creatinine Lvl (s): 0.76 09/30 13:19 WBC: 7.2 Hgb: 13.7 Hct: 40.8 Platelet: 335 Neutrophil %: 60.9 Glucose Level: 99 Sodium Level: 142 Potassium Level: 3.7 BUN: 9.0 Creatinine Lvl (s): 0.76 Assessment/Plan 2. Cervical cancer 3. Obstructive uropathy 4. Asthma History of cervical cancer status post chemoradiation Left nephrostomy tube in place, last exchanged 08/14/2022 Acute pyelonephritis Complicated UTI Chest port in place Patient is a 31 yo woman with a history of stage IIIB cervical cancer s/p chemoradiation,has a history obstructive uropathy with left nephrostomy tube in place; admitted for abdominal pain, urinary symptoms concerning for pyelonephritis. Over the past 24 hours, patient has remained afebrile. No leukocytosis. Left nephrostomy tube is inplace draining patent. Prior to admission, the patient reports she had malodorous urine output and 3 days of hematuria with small clots. Urine culture this admission is pending. UA with microscopy was loaded with WBCs Prior urine cultures have revealed ESBL E. coli, Klebsiella and Enterococcus faecalis Nuclear medicine renal scan is pending SEAM RUBBER/onc board and following Discussed with patient, she expressed her wishes to have the nephrostomy tube removed, will defer to the primary team/urology to have this discussion with the patient, in the meantime we will continue IV antibiotic therapy with meropenem, also patient may benefit from CT scan of the abdomen and pelvic area Thank you for this consultation, will follow I was present for Brenda López LPN , and personally directed, all components of the patient's complete evaluation and management documented by the scribe today. I have personally examined the patient and reviewed all diagnostic data. I have reviewed all of this documentation by the scribe. It documents the history obtained, examination performed, diagnostic testing results compiled by him/her,and discharge information. Problem List/Past Medical History Ongoing Acute kidney injury Anxiety Asthma Cervical cancer Complicated UTI (urinary tract infection) Decreased appetite Dehydration DVT prophylaxis History of chemotherapy History of COVID-19 History of radiation therapy Left flank pain Moderate protein-calorie malnutrition Nausea and vomiting Nephrostomy status Obstructive uropathy Port-A-Cath in place Premature menopause Pyelonephritis Historical Cervicitis Chronic kidney disease, stage 3 (moderate) Encounter for antineoplastic chemotherapy Hydronephrosis of left kidney Mass of cervix Tinnitus Procedure/Surgical History Nephrostomy with tube drainage: 01/10/21 JJ stent: 11/15/20 Radiation: 06/2020 Cervical biopsy: 2019 Tumor cells, benign: 2001 Cannulation of Portacath Nephrostomy with tube drainage Medications Inpatient Ativan, 1 mg= 1 tab(s), Oral, TID, PRN Bolus NS 1000 mL, 1000 mL, IV Bolus, Once Colace, 100 mg= 1 cap(s), Oral, BID Dilaudid AUTOMOTIVE ALIGNMENT SPECIALIST (0.2mg/1 mL) 10 mg, 10 mg= 50 mL, Intravenous lidocaine 1% preservative-free injectable solution, 2.5 mg= 0.25 mL, Intradermal, prep pharm lidocaine 1% preservative-free injectable solution, 2.5 mg= 0.25 mL, Intradermal, prep pharm meropenem Narcan, 0.2 mg= 0.5 mL, IV Push, AsDirected, PRN Normal Saline Flush,, 0.09 gram(s)= 10 mL, IR Drain, Daily Protonix IV Push, 40 mg, IV Push, qDay Tylenol, 650 mg= 2 tab(s), Oral, q4h, PRN Zofran, 4 mg= 2 mL, IV Push, q4h Home acetaminophen-oxyCODONE 325 mg-5 mg oral tablet, 1 tab(s), Oral, q6hr Ativan 1 mg oral tablet, 1 mg= 1 tab(s), Oral, TID, PRN, 4 refills lidocaine 5% topical patch, 1 patch(es), Topical, qDay naproxen 250 mg oral tablet, 250 mg= 1 tab(s), Oral, BID Normal Saline Flush 0.9% injectable solution, 0.09 gram(s)= 10 mL, IR Drain, Daily, 12 refills promethazine 12.5 mg rectal suppository, 12.5 mg= 1 supp, Rectal, q6h, PRN, Not taking Tylenol 325 mg oral capsule, 650 mg, Oral, q4h, PRN Zofran 4 mg oral tablet, 4 mg= 1 tab(s), Oral, q6h, PRN, 1 refills Allergies penicillin Social History Alcohol - Denies Alcohol Use, 06/13/2020 Use: Current. Type: Beer. Frequency: 1-2 times per week., 12/21/2021 Home/Environment - No Risk, 06/13/2020 Domestic Concerns: None. Living situation: Home/Independent. Safe place to go: Yes. Lives In: Mobile home, 1st floor bedroom, 1st floor bathroom. Current Home Treatments None. Professional Skilled Services or Special Community Resources None. Financial concerns: No. Marital Status: Unmarried., 06/13/2020 Nutrition/Health - No Risk, 06/13/2020 Type of diet: Regular. Appetite Fair. Eating Difficulties None. Caffeine intake amount: 1 can pop per day., 06/13/2020 Sexual Sexually active: Yes. First active at age: 18 Years. Current partners: 1. Number of lifetime partners: 7. Self described orientation: Straight or heterosexual. Other contraceptive use: condoms. History of sexual abuse: No. Gender Identity: Identifies as female., 04/12/2020 Substance Abuse - Denies Substance Abuse, 06/13/2020 Use: Never., 04/12/2020 Tobacco Nicotine Use: 5-9 cigarettes (between 1/4 to 1/2 pack)/day in last 30 days. Type: Cigarettes. Tobacco use per day: 10. Number of years: 10. Started at age: 19 Years. Previous treatment: None. Ready to change: Yes., 04/12/2020 Family History Alcohol abuse: Father. Asthma: Mother. Bladder cancer: Negative: Mother, Father, Sister, Brother, Daughter, Son and Grandparent. Breast cancer: Mother. COPD - Chronic obstructive pulmonary disease: Mother. Cancer: Sister. Diabetes: Grandparent. Heart attack: Mother. Heart disease: Mother. Hypertension: Mother. Kidney stone: Mother. Renal cancer: Negative: Mother, Father, Sister, Brother, Daughter, Son and Grandparent. Stroke: Father and Grandparent. Substance abuse: Father. Immunizations hepatitis B pediatric vaccine: 0 unknown unit (06/16/01) hepatitis B pediatric vaccine: 0 unknown unit (06/21/98) measles/mumps/rubella virus vaccine: 0 unknown unit (06/16/01) Digitally Signed by Brenda López on 10/01/2022 10:58 AM Digitally Signed by MARGOTH RUVALCABA BA, MD on 10/01/2022 11:23 AM [id number] Note System generated consult for an establish left nephrostomy tube. Tube is secured with a StayFIX securement device. Patient is scheduled tomorrow for tube exchange. Digitally Signed by Rhea Pruett RN, Skin Team on 10/01/2022 10:01 AM [id number] Note Date of Service 10/01/2022 Chief Complaint Abdominal pain Difficulty urinating Subjective Patient seen and examined. Her pain remains uncontrolled overnight. She reports persistent nausea however no vomiting. She denies chest pain, shortness of breath. Objective Vitals and Measurements T: 36.5 C (Oral) TMIN: 36.5 C (Oral) TMAX: 36.7 C (Oral) HR: 66 RR: 18 BP: 119/77 SpO2: 98% HT: 167.6 cm WT: 50.4 kg BMI: 17.94 Intake and Output 7AM Yesterday to 7AM Today Intake and Output (Last 24 hours) Intake Administration Information 966.00 Oral Intake 340.00 Output Urostomy Output: 175.00 Stool Count 0.00 Urine Count 0.00 Emesis Count 0.00 Total Summary Total Intake 1306.00 Total Output 175.00 Fluid Balance 1131.00 Physical Exam General: A&Ox3, no apparent distress Resp: clear to auscultation bilaterally CV: normal rate and rhythm Abdomen: Soft generalized tenderness, nonrigid, no peritoneal signs, positive bowel sounds throughout Pelvis: No signs of active vaginal bleeding Ext: No lower extremity edema. No cyanosis. Negative Homans sign Spine: Left CVA tenderness. No leaking at nephrostomy site, urine in nephrostomy bag appears cloudy, small amount of clots in the tubing, draining well UOP: 300 in left nephrostomy tube Weight Dosing Weight: 50.4 kg (09/30/22) Dosing Weight: 50.4 kg (09/30/22) Medications Medications (11) Active Scheduled: (5) docusate sodium 100 mg Capsule 100 mg 1 cap(s), Oral, BID meropenem 1,000 mg, IV Piggyback, q8hr ondansetron 2 mg/ 1 mL 2 mL INJ 4 mg 2 mL, IV Push, q4h pantoprazole 40 mg VIAL 40 mg, IV Push, qDay sodium chloride 0.9% 10 ml syringe maddie flush 0.09 gram(s) 10 mL, IR Drain, Daily Continuous: (0) PRN: (6) acetaminophen 325 mg Tablet 650 mg 2 tab(s), Oral, q4h HYDROmorphone 0.5 mg/0.5 mL PF syringe 0.5 mg 0.5 mL, IV Push, q2h hydromorphone 1 mg/mL (1mL) INJ 1 mg 1 mL, IV Push, q2h LORAZEPam 1 mg Tablet 1 mg 1 tab(s), Oral, TID oxycodone 5 mg tablet (immediate release) 5 mg 1 tab(s), Oral, q4h oxycodone 5 mg tablet (immediate release) 10 mg 2 tab(s), Oral, q4h Lab Results 10/01 04:19 WBC: 6.5 Hgb: 12.0 Hct: 35.9 Platelet: 294 Neutrophil %: 56.9 Glucose Level: 83 Sodium Level: 143 Potassium Level: 3.8 BUN: 11.0 Creatinine Lvl (s): 0.76 09/30 13:19 WBC: 7.2 Hgb: 13.7 Hct: 40.8 Platelet: 335 Neutrophil %: 60.9 Glucose Level: 99 Sodium Level: 142 Potassium Level: 3.7 BUN: 9.0 Creatinine Lvl (s): 0.76 EKG No qualifying data available. Assessment/Plan Patient is a 31 yo woman with a history of stage IIIB cervical cancer s/p chemoradiation,has a history obstructive uropathy with left nephrostomy tube in place; admitted for abdominal pain, urinary symptoms concerning for pyelonephritis. >> Admit to regular floor >> Condition: Stable >> Vitals: q4hr >> Activity: Ambulate >> Diet: NPO (CLD with medications) >> IVF: NS 90 cc/hr >> DVT Prophylaxis: SCDs >> Consults: None Pyelonephritis - Directly admitted for abdominal pain and vast array of urinary symptoms - Left Nephrostomy tube in place since 2019. Last IR nephrostomy tube exchange 08/14/2022 - Recurrent history of complicated urinary tract infection with ESBL / E. coli / Enterococcus / Klebsiella pneumonia sensitive to Meropenem, Imipenem, Ertapenem, Gentamicin - Last admission on 08/08/22 she was treated with Meropenem and transitioned to PO Macrobid - UOP 300 cc in the left nephrostomy tube - Starting Meropenem 1 g q8hrs - Urinalysis: large blood, large protein, large LE. urine culture from left nephrostomy tube pending - Urinalysis and urine culture from spontaneous void pending - Blood culture NGTD - NM Kidney diuretic scan pending - Creatinine from today was 0.76, GFR > 60 - MIVF weight based, 90 ml/hr - Strict I's and O's History of cervical cancer - Stage IIIB SCC of cervix - S/p Chemoradiation, currently in remission -Recent CT 08/02/22 unremarkable for signs of cancer recurrence -Recent Pap smear (07/15) negative for cervical dysplasia, however positive for HPV. For 6 months follow up per Dr. Martin's last note - Port-A-Cath in place Tobacco - For Nicotine patch if patient desires - Smokes 1/2 PPD Anxiety - Declined counseling - Continue Ativan home dose PRN Asthma - Not in acute exacerbation Obstructive uropathy s/p Left Nephrostomy tube - Initially placed in 2019. - Last exchanged 08/14/22 - NM Kidney diuretic scan pending Poor appetite - MIVF weight based - NPO overnight, clears with medications - Nutrition consultation in the morning - Can consider appetite stimulants and supplements Disposition: management of pyelonephritis, initiating IV antibiotics, Blood and urine cultures pending, for NM Kidney scan, keep NPO, pain control. Plan for IR nephrostomy tube exchange at patient's next scheduled appointment on 10/02/22. Digitally Signed by PRIMO CANELA MD on 10/01/2022 06:59 AM [facility] [id number] History and physical note Date of Service 09/30/2022 Chief Complaint Abdominal pain Difficulty urinating History of Present Illness Patient is a 31 yo Woman with history of Stage IIIB cervical cancer s/p chemoradiation currently in remission. Patient was directly admitted after presenting with worsening lower abdominal pain, urinary retention. Patient has a left Nephrostomy tube in place since 2019, it was last exchanged during her last admission on 08/14/2022 after initially presenting with dysuria and decreased urine output. During that admission she was found to have an ESBL UTI sensitive to Meropenem. She was started on Meropenem and transitioned to Macrobid at the time of discharge. Since her hospital discharge patient reported she was asymptomatic for 2 weeks, she had great urine output from her left neph rostomy tube and voiding spontaneously. However since then she has noted a progressive decline in her voids. About a week ago she was unable to void spontaneously, but her nephrostomy tube had increased output. She did reports malodorous urine output and noted three days of hematuria with small clots. She did deny gross hematuria. Over the weekend the hematuria improved significantly. She also reported a leak in her nephrostomy bag, requested a new one however she receive a different size bag. She now carries her nephrostomy bag in a Ziploc bag to prevent leakage of urine. She denies drainageat the site of the tubing. Over the last week she has been experiencing constant squeezing lower abdominal pain and flank pain, she rates her pain 7-8/10. Occasionally Tylenol, Naproxen and Percocet will provide some relief. She reports fatigue for the past week, difficulty leaving the house, getting up from her couch. She has not been eating for the past week, only drinking water and sprite occasionally. She states she's in too much pain to eat. She endorses subjective fever, chills, night sweats, nausea, intermittent shortness of breath with physical activity, dysuria, hematuria, anorexia, flank pain, lower abdominalpain. She denies visual changes, headache, chest pain, dizziness, vaginal bleeding, vaginal discharge. 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 Menarche age 14. Amenorrheic since initiation of Chemoradiation. Denies mammogram ever. Colonoscopy in 2019. Denies history of STDs. Not sexually active. Family History Mother with breast cancer Sister with cervical cancer Grandmother with cervical cancer Aunts with cervical cancer Cousins with cervical cancer ONCOLOGY HISTORY: - 04/04/2020: CT scan abdomen and pelvis. [facility]. Thickened cervical wall with involvementof the lower uterine segment, highly concerning for malignancy. There is involvement of the left ureter resulting in left hydronephrosis and hydroureter. Mildly enlarged right external iliac lymph node measuring 1.4 x 1.1 x 1.2 cm. - 04/13/2020: CT thorax. No evidence of active malignancy in the thorax. - 04/13/2020: IR nephrostomy tube insertion on the left. - 04/13/2020: MRI of the pelvis with contrast. Large uterine mass with extension to the pelvic fat and possible involvement of the mesorectal fascia. There is a prominent but not pathologically enlarged left pelvic lymph node which could be metastatic. Large cervical mass measuring 4.7 x 5.8 cm. - : Examination under Anesthesia, Cystourethroscopy, Cervical biopsies, Proctoscopy - 04/26/2020 Week #1 Cisplatin 40mg/m2 - 05/03/2020 Week #2 Cisplatin 20mg/m2 - 05/10/2020 Week #3 Cisplatin 20mg/m2 - 05/17/2020 Week #4 Cisplatin 20mg/m2 - 05/24/2020 Week #5 Cisplatin 20mg/m2 - 05/31/2020 Week #6 Cisplatin 20mg/m2 - 08/18/2020: CT urogram. Left percutaneous nephrostomy tube in place. Minimal left upper pole striated nephrogram. This finding is nonspecific and may be seen with inflammation or obstruction. Sincethere is no significant adjacent infiltrative changes within the perinephric fat, this could potentially be indicative of minimal left side obstruction. Improvement of the cervix lesion since the prior exam, diminished in size since prior study. - 12/07/2020 PET/CT no abnormal uptake at the uterine cervix, FDG avid lymphadenopathy or metastatic disease is seen. - 2020 CT abdomen and pelvis decreased left nephrogram with ectasia of the left upper tract and enhancement of the uroepithelium lining is worrisome for obstruction and/or infection following interval ureteral stent removal. - 01/09/2021 MRI of the pelvis treated disease with no significant residual tumor identified on this exam. Mild infiltrative change within the deep pelvic fat is presumably the result of radiation therapy, and attention to follow-up is recommended. Re-demonstration of mildly dilated left ureter and collecting system, compatible of history of pyelonephritis. RADIATION SUMMARY: Dates of treatment: 04/26/2020 - 06/07/2020 Treatment details : Initially the pelvis was treated to a dose of 4500 cGy in 25 fractions using intensity modulated radiation therapy with 6 MV photons. Following this dose the parametrium was boosted an additional 540 cGy in 3 fractions through AP PA quintero with midline block taken her final pelvic tumor dose to 5040 centigray. She was treated with concurrent cisplatin based chemotherapy. The patient then underwent for intracavitary brachii therapy applications with [id number] iridium 192afterloading device utilizing a tandem and ring. 2400 cGy was delivered at 600 cGy per fraction to point A from June 14, 2020 through July 11, 2020. The plan was to deliver 5 brachytherapy applications, however, the patient failed to show for surgery 3 times. Therefore, the decision to foregothe last treatment was made as it had been nearly 3 months since initiating therapy. Course: C1 Pelvis Treatment Site Ref. ID Energy Dose/Fx (cGy) #Fx Total Dose (cGy) Start Date End Date Elapsed Days IMRT SEAM RUBBER Pelvis 6X 180 4,500 04/26/2020 06/02/2020 37 3D PM Bst 18X 180 540 06/05/2020 06/07/2020 2 GENETIC TESTING: - [facility] No reportable somatic or germline pathogenic or actionable mutations were found. Tumor mutational burden was 39th percentile. Microsatellite instability status stable. Somatic variants of unknown significance were found in PRKDC, TRAF3, AGUSTIN, ERBB4, and CXCR4. Variants of unknown significance and germline mutations were found in BRCA2 and RAD51C.DNA mismatch repair protein expression was normal. PD-L1 expression was positive. Review of Systems See HPI for pertinent positives. A full review of systems was conducted and found to be otherwise negative Physical Exam Vitals and Measurements T: 36.6 C (Oral) TMIN: 36.6 C (Oral) TMAX: 36.7 C (Oral) HR: 71 RR: 18 BP: 123/86 SpO2: 100% HT: 167.6 cm WT: 50.4 kg BMI: 17.94 Weight Dosing Weight: 50.4 kg (09/30/22) Dosing Weight: 50.4 kg (09/30/22) General: Alert and oriented x 3, no acute distress, appears to be uncomfortable HEENT: Normal hearing. Dry mucous membranes Lymphatic: No cervical, supraclavicular lymphadenopathy. Breasts: Deferred Cardiac: Regular rate and rhythm, no murmurs, rubs, gallops Respiratory: No increased work of breathing, symmetrical chest wall expansion, good air entry, clear to auscultation bilaterally Abdomen: Soft, nondistended, tenderness in the lower quadrants, suprapubic tenderness, voluntary guarding, no rebound, no masses, no hernias, normal bowel sounds. Spine: Left CVA tenderness. No leaking at nephrostomy site, urine in nephrostomy bag appears cloudy, small amount of clots in the tubing, draining well, 300 cc urine in the bag Genitourinary: deferred Extremities: Warm. No cyanosis, clubbing, or edema. Musculoskeletal: Normal range of motion. Psychiatric: tearful. Lab Results 36hr Labs 09/30 1319 Creatinine Lvl (s) 0.76 Albumin Level 3.8 Alk Phos 76 Bili Total 0.30 BUN 9.0 Calcium Lvl 9.5 Chloride 110 CO2 29 Glucose Level 99 Potassium Level 3.7 Sodium Level 142 Total Protein 6.5 BUN/Creatinine Ratio 11.8 Globulin 2.7 A/G Ratio 1.4 AST/SGOT 11 ALT/SGPT <7 L Electrolyte Balance 3.0 L GFR Non- >60 GFR >60 Hct 40.8 Hgb 13.7 MCH 34.0 H MCHC 33.5 MCV 101.6 H MPV 6.7 Platelet 335 RBC 4.02 L RDW 15.4 WBC 7.2 Lymphocyte % 25.4 Monocyte % 8.0 Neutrophil % 60.9 Eosinophil % 4.3 Basophil % 1.4 Neutrophil, Absolute 4.4 Lymphocyte, Absolute 1.8 Monocyte, Absolute 0.6 Eosinophil, Absolute 0.3 Basophil, Absolute 0.1 Monocyte Distribution Width 14.85 Assessment/Plan Patient is a 31 yo woman with a history of stage IIIB cervical cancer s/p chemoradiation,has a history obstructive uropathy with left nephrostomy tube in place; admitted for abdominal pain, urinary symptoms concerning for pyelonephritis. >> Admit to regular floor >> Condition: Stable >> Vitals: q4hr >> Activity: Ambulate >> Diet: NPO (CLD with medications) >> IVF: NS 90 cc/hr >> DVT Prophylaxis: SCDs >> Consults: None Pyelonephritis - Directly admitted for abdominal pain and vast array of urinary symptoms - Left Nephrostomy tube in place since 2019. Last IR nephrostomy tube exchange 08/14/2022 - Recurrent history of complicated urinary tract infection with ESBL / E. coli / Enterococcus / Klebsiella pneumonia sensitive to Meropenem, Imipenem, Ertapenem, Gentamicin - Last admission on 08/08/22 she was treated with Meropenem and transitioned to PO Macrobid - UOP 300 cc in the left nephrostomy tube - Starting Meropenem 1 g q8hrs - Urinalysis and urine culture from left nephrostomy tube pending - Urinalysis and urine culture from spontaneous void pending - Blood culture pending - NM Kidney diuretic scan pending - Creatinine from today was 0.76, GFR > 60 - MIVF weight based, 90 ml/hr - Strict I's and O's History of cervical cancer - Stage IIIB SCC of cervix - S/p Chemoradiation, currently in remission -Recent CT 08/02/22 unremarkable for signs of cancer recurrence -Recent Pap smear (07/15) negative for cervical dysplasia, however positive for HPV. For 6 months follow up per Dr. Martin's last note - Port-A-Cath in place Tobacco - For Nicotine patch if patient desires - Smokes 1/2 PPD Anxiety - Declined counseling - Continue Ativan home dose PRN Asthma - Not in acute exacerbation Obstructive uropathy s/p Left Nephrostomy tube - Initially placed in 2019. - Last exchanged 08/14/22 - NM Kidney diuretic scan pending Poor appetite - MIVF weight based - NPO overnight, clears with medications - Nutrition consultation in the morning - Can consider appetite stimulants and supplements Disposition: Admit patient for management of pyelonephritis, initiating IV antibiotics, Blood and urine cultures pending, for NM Kidney scan, keep NPO, pain control. Plan for IR nephrostomy tube exchange at patient's next scheduled appointment on 10/02/22. Problem List/Past Medical History Ongoing Anxiety Asthma Cervical cancer Complicated UTI (urinary tract infection) Decreased appetite History of chemotherapy History of COVID-19 History of radiation therapy Moderate protein-calorie malnutrition Nausea and vomiting Nephrostomy status Obstructive uropathy Port-A-Cath in place Premature menopause Historical Cervicitis Chronic kidney disease, stage 3 (moderate) Encounter for antineoplastic chemotherapy Hydronephrosis of left kidney Mass of cervix Tinnitus Procedure/Surgical History Nephrostomy with tube drainage: 01/10/21 JJ stent: 11/15/20 Radiation: 06/2020 Cervical biopsy: 2019 Tumor cells, benign: 2002 Cannulation of Portacath Nephrostomy with tube drainage Medications Home Medications (8) Active acetaminophen-oxyCODONE 325 mg-5 mg oral tablet 1 tab(s), Oral, q6hr Ativan 1 mg oral tablet 1 mg = 1 tab(s), PRN, Oral, TID lidocaine 5% topical patch 1 patch(es), Topical, qDay naproxen 250 mg oral tablet 250 mg = 1 tab(s), Oral, BID Normal Saline Flush 0.9% injectable solution 0.09 gram(s) = 10 mL, IR Drain, Daily promethazine 12.5 mg rectal suppository 12.5 mg = 1 supp, PRN, Rectal, q6h Tylenol 325 mg oral capsule 650 mg, PRN, Oral, q4h Zofran 4 mg oral tablet 4 mg = 1 tab(s), PRN, Oral, q6h Allergies Penicillin (Rash) Social History Alcohol - Denies Alcohol Use, 06/13/2020 Use: Current. Type: Beer. Frequency: 1-2 times per week., 12/21/2021 Home/Environment - No Risk, 06/13/2020 Domestic Concerns: None. Living situation: Home/Independent. Safe place to go: Yes. Lives In: Mobile home, 1st floor bedroom, 1st floor bathroom. Current Home Treatments None. Professional Skilled Services or Special Community Resources None. Financial concerns: No. Marital Status: Unmarried., 06/13/2020 Nutrition/Health - No Risk, 06/13/2020 Type of diet: Regular. Appetite Fair. Eating Difficulties None. Caffeine intake amount: 1 can pop per day., 06/13/2020 Sexual Sexually active: Yes. First active at age: 18 Years. Current partners: 1. Number of lifetime partners: 7. Self described orientation: Straight or heterosexual. Other contraceptive use: condoms. History of sexual abuse: No. Gender Identity: Identifies as female., 04/12/2020 Substance Abuse - Denies Substance Abuse, 06/13/2020 Use: Never., 04/12/2020 Tobacco Nicotine Use: 5-9 cigarettes (between 1/4 to 1/2 pack)/day in last 30 days. Type: Cigarettes. Tobacco use per day: 10. Number of years: 10. Started at age: 19 Years. Previous treatment: None. Ready to change: Yes., 04/12/2020 Family History Alcohol abuse: Father. Asthma: Mother. Bladder cancer: Negative: Mother, Father, Sister, Brother, Daughter, Son and Grandparent. Breast cancer: Mother. COPD - Chronic obstructive pulmonary disease: Mother. Cancer: Sister. Diabetes: Grandparent. Heart attack: Mother. Heart disease: Mother. Hypertension: Mother. Kidney stone: Mother. Renal cancer: Negative: Mother, Father, Sister, Brother, Daughter, Son and Grandparent. Stroke: Father and Grandparent. Substance abuse: Father. Immunizations hepatitis B pediatric vaccine: 0 unknown unit (06/16/01) hepatitis B pediatric vaccine: 0 unknown unit (06/21/98) measles/mumps/rubella virus vaccine: 0 unknown unit (06/16/01) Code Status No qualifying data available. Digitally Signed by PRIMO CANELA MD on 09/30/2022 08:19 PM [id number] Note Date of Service 10/01/2022 Chief Complaint Abdominal pain Difficulty urinating Subjective Patient seen and examined. Her pain remains uncontrolled overnight. She reports persistent nausea however no vomiting. She denies chest pain, shortness of breath. Objective Vitals and Measurements T: 36.5 C (Oral) TMIN: 36.5 C (Oral) TMAX: 36.7 C (Oral) HR: 66 RR: 18 BP: 119/77 SpO2: 98% HT: 167.6 cm WT: 50.4 kg BMI: 17.94 Intake and Output 7AM Yesterday to 7AM Today Intake and Output (Last 24 hours) Intake Administration Information 966.00 Oral Intake 340.00 Output Urostomy Output: 175.00 Stool Count 0.00 Urine Count 0.00 Emesis Count 0.00 Total Summary Total Intake 1306.00 Total Output 175.00 Fluid Balance 1131.00 Physical Exam General: A&Ox3, no apparent distress Resp: clear to auscultation bilaterally CV: normal rate and rhythm Abdomen: Soft generalized tenderness, nonrigid, no peritoneal signs, positive bowel sounds throughout Pelvis: No signs of active vaginal bleeding Ext: No lower extremity edema. No cyanosis. Negative Homans sign Spine: Left CVA tenderness. No leaking at nephrostomy site, urine in nephrostomy bag appears cloudy, small amount of clots in the tubing, draining well UOP: 300 in left nephrostomy tube Weight Dosing Weight: 50.4 kg (09/30/22) Dosing Weight: 50.4 kg (09/30/22) Medications Medications (11) Active Scheduled: (5) docusate sodium 100 mg Capsule 100 mg 1 cap(s), Oral, BID meropenem 1,000 mg, IV Piggyback, q8hr ondansetron 2 mg/ 1 mL 2 mL INJ 4 mg 2 mL, IV Push, q4h pantoprazole 40 mg VIAL 40 mg, IV Push, qDay sodium chloride 0.9% 10 ml syringe maddie flush 0.09 gram(s) 10 mL, IR Drain, Daily Continuous: (0) PRN: (6) acetaminophen 325 mg Tablet 650 mg 2 tab(s), Oral, q4h HYDROmorphone 0.5 mg/0.5 mL PF syringe 0.5 mg 0.5 mL, IV Push, q2h hydromorphone 1 mg/mL (1mL) INJ 1 mg 1 mL, IV Push, q2h LORAZEPam 1 mg Tablet 1 mg 1 tab(s), Oral, TID oxycodone 5 mg tablet (immediate release) 5 mg 1 tab(s), Oral, q4h oxycodone 5 mg tablet (immediate release) 10 mg 2 tab(s), Oral, q4h Lab Results 10/01 04:19 WBC: 6.5 Hgb: 12.0 Hct: 35.9 Platelet: 294 Neutrophil %: 56.9 Glucose Level: 83 Sodium Level: 143 Potassium Level: 3.8 BUN: 11.0 Creatinine Lvl (s): 0.76 09/30 13:19 WBC: 7.2 Hgb: 13.7 Hct: 40.8 Platelet: 335 Neutrophil %: 60.9 Glucose Level: 99 Sodium Level: 142 Potassium Level: 3.7 BUN: 9.0 Creatinine Lvl (s): 0.76 EKG No qualifying data available. Assessment/Plan Patient is a 31 yo woman with a history of stage IIIB cervical cancer s/p chemoradiation,has a history obstructive uropathy with left nephrostomy tube in place; admitted for abdominal pain, urinary symptoms concerning for pyelonephritis. >> Admit to regular floor >> Condition: Stable >> Vitals: q4hr >> Activity: Ambulate >> Diet: NPO (CLD with medications) >> IVF: NS 90 cc/hr >> DVT Prophylaxis: SCDs >> Consults: None Pyelonephritis - Directly admitted for abdominal pain and vast array of urinary symptoms - Left Nephrostomy tube in place since 2019. Last IR nephrostomy tube exchange 08/14/2022 - Recurrent history of complicated urinary tract infection with ESBL / E. coli / Enterococcus / Klebsiella pneumonia sensitive to Meropenem, Imipenem, Ertapenem, Gentamicin - Last admission on 08/08/22 she was treated with Meropenem and transitioned to PO Macrobid - UOP 300 cc in the left nephrostomy tube - Starting Meropenem 1 g q8hrs - Urinalysis: large blood, large protein, large LE. urine culture from left nephrostomy tube pending - Urinalysis and urine culture from spontaneous void pending - Blood culture NGTD - NM Kidney diuretic scan pending - Creatinine from today was 0.76, GFR > 60 - MIVF weight based, 90 ml/hr - Strict I's and O's History of cervical cancer - Stage IIIB SCC of cervix - S/p Chemoradiation, currently in remission -Recent CT 08/02/22 unremarkable for signs of cancer recurrence -Recent Pap smear (07/15) negative for cervical dysplasia, however positive for HPV. For 6 months follow up per Dr. Martin's last note - Port-A-Cath in place Tobacco - For Nicotine patch if patient desires - Smokes 1/2 PPD Anxiety - Declined counseling - Continue Ativan home dose PRN Asthma - Not in acute exacerbation Obstructive uropathy s/p Left Nephrostomy tube - Initially placed in 2019. - Last exchanged 08/14/22 - NM Kidney diuretic scan pending Poor appetite - MIVF weight based - NPO overnight, clears with medications - Nutrition consultation in the morning - Can consider appetite stimulants and supplements Disposition: management of pyelonephritis, initiating IV antibiotics, Blood and urine cultures pending, for NM Kidney scan, keep NPO, pain control. Plan for IR nephrostomy tube exchange at patient's next scheduled appointment on 10/02/22. Digitally Signed by PRIMO CANELA MD on 10/01/2022 06:59 [facility]11-28-2022 History and physical note Date of Service 09/30/2022 Chief Complaint Abdominal pain Difficulty urinating History of Present Illness Patient is a 31 yo Woman with history of Stage IIIB cervical cancer s/p chemoradiation currently in remission. Patient was directly admitted after presenting with worsening lower abdominal pain, urinary retention. Patient has a left Nephrostomy tube in place since 2019, it was last exchanged during her last admission on 08/14/2022 after initially presenting with dysuria and decreased urine output. During that admission she was found to have an ESBL UTI sensitive to Meropenem. She was started on Meropenem and transitioned to Macrobid at the time of discharge. Since her hospital discharge patient reported she was asymptomatic for 2 weeks, she had great urine output from her left neph rostomy tube and voiding spontaneously. However since then she has noted a progressive decline in her voids. About a week ago she was unable to void spontaneously, but her nephrostomy tube had increased output. She did reports malodorous urine output and noted three days of hematuria with small clots. She did deny gross hematuria. Over the weekend the hematuria improved significantly. She also reported a leak in her nephrostomy bag, requested a new one however she receive a different size bag. She now carries her nephrostomy bag in a Ziploc bag to prevent leakage of urine. She denies drainageat the site of the tubing. Over the last week she has been experiencing constant squeezing lower abdominal pain and flank pain, she rates her pain 7-8/10. Occasionally Tylenol, Naproxen and Percocet will provide some relief. She reports fatigue for the past week, difficulty leaving the house, getting up from her couch. She has not been eating for the past week, only drinking water and sprite occasionally. She states she's in too much pain to eat. She endorses subjective fever, chills, night sweats, nausea, intermittent shortness of breath with physical activity, dysuria, hematuria, anorexia, flank pain, lower abdominalpain. She denies visual changes, headache, chest pain, dizziness, vaginal bleeding, vaginal discharge. 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 Menarche age 14. Amenorrheic since initiation of Chemoradiation. Denies mammogram ever. Colonoscopy in 2019. Denies history of STDs. Not sexually active. Family History Mother with breast cancer Sister with cervical cancer Grandmother with cervical cancer Aunts with cervical cancer Cousins with cervical cancer ONCOLOGY HISTORY: - 04/04/2020: CT scan abdomen and pelvis. [facility]. Thickened cervical wall with involvementof the lower uterine segment, highly concerning for malignancy. There is involvement of the left ureter resulting in left hydronephrosis and hydroureter. Mildly enlarged right external iliac lymph node measuring 1.4 x 1.1 x 1.2 cm. - 04/13/2020: CT thorax. No evidence of active malignancy in the thorax. - 04/13/2020: IR nephrostomy tube insertion on the left. - 04/13/2020: MRI of the pelvis with contrast. Large uterine mass with extension to the pelvic fat and possible involvement of the mesorectal fascia. There is a prominent but not pathologically enlarged left pelvic lymph node which could be metastatic. Large cervical mass measuring 4.7 x 5.8 cm. - : Examination under Anesthesia, Cystourethroscopy, Cervical biopsies, Proctoscopy - 04/26/2020 Week #1 Cisplatin 40mg/m2 - 05/03/2020 Week #2 Cisplatin 20mg/m2 - 05/10/2020 Week #3 Cisplatin 20mg/m2 - 05/17/2020 Week #4 Cisplatin 20mg/m2 - 05/24/2020 Week #5 Cisplatin 20mg/m2 - 05/31/2020 Week #6 Cisplatin 20mg/m2 - 08/18/2020: CT urogram. Left percutaneous nephrostomy tube in place. Minimal left upper pole striated nephrogram. This finding is nonspecific and may be seen with inflammation or obstruction. Sincethere is no significant adjacent infiltrative changes within the perinephric fat, this could potentially be indicative of minimal left side obstruction. Improvement of the cervix lesion since the prior exam, diminished in size since prior study. - 12/07/2020 PET/CT no abnormal uptake at the uterine cervix, FDG avid lymphadenopathy or metastatic disease is seen. - 2020 CT abdomen and pelvis decreased left nephrogram with ectasia of the left upper tract and enhancement of the uroepithelium lining is worrisome for obstruction and/or infection following interval ureteral stent removal. - 01/09/2021 MRI of the pelvis treated disease with no significant residual tumor identified on this exam. Mild infiltrative change within the deep pelvic fat is presumably the result of radiation therapy, and attention to follow-up is recommended. Re-demonstration of mildly dilated left ureter and collecting system, compatible of history of pyelonephritis. RADIATION SUMMARY: Dates of treatment: 04/26/2020 - 06/07/2020 Treatment details : Initially the pelvis was treated to a dose of 4500 cGy in 25 fractions using intensity modulated radiation therapy with 6 MV photons. Following this dose the parametrium was boosted an additional 540 cGy in 3 fractions through AP PA quintero with midline block taken her final pelvic tumor dose to 5040 centigray. She was treated with concurrent cisplatin based chemotherapy. The patient then underwent for intracavitary brachii therapy applications with [id number] iridium 192afterloading device utilizing a tandem and ring. 2400 cGy was delivered at 600 cGy per fraction to point A from June 14, 2020 through July 11, 2020. The plan was to deliver 5 brachytherapy applications, however, the patient failed to show for surgery 3 times. Therefore, the decision to foregothe last treatment was made as it had been nearly 3 months since initiating therapy. Course: C1 Pelvis Treatment Site Ref. ID Energy Dose/Fx (cGy) #Fx Total Dose (cGy) Start Date End Date Elapsed Days IMRT [facility] Pelvis 6X 180 4,500 04/26/2020 06/02/2020 37 3D PM Bst 18X 180 540 06/05/2020 06/07/2020 2 GENETIC TESTING: - Patient had genetic testing sent through [facility]. No reportable somatic or germline pathogenic or actionable mutations were found. Tumor mutational burden was 39th percentile. Microsatellite instability status stable. Somatic variants of unknown significance were found in PRKDC, TRAF3, AGUSTIN, ERBB4, and CXCR4. Variants of unknown significance and germline mutations were found in BRCA2 and RAD51C.DNA mismatch repair protein expression was normal. PD-L1 expression was positive. Review of Systems See HPI for pertinent positives. A full review of systems was conducted and found to be otherwise negative Physical Exam Vitals and Measurements T: 36.6 C (Oral) TMIN: 36.6 C (Oral) TMAX: 36.7 C (Oral) HR: 71 RR: 18 BP: 123/86 SpO2: 100% HT: 167.6 cm WT: 50.4 kg BMI: 17.94 Weight Dosing Weight: 50.4 kg (09/30/22) Dosing Weight: 50.4 kg (09/30/22) General: Alert and oriented x 3, no acute distress, appears to be uncomfortable HEENT: Normal hearing. Dry mucous membranes Lymphatic: No cervical, supraclavicular lymphadenopathy. Breasts: Deferred Cardiac: Regular rate and rhythm, no murmurs, rubs, gallops Respiratory: No increased work of breathing, symmetrical chest wall expansion, good air entry, clear to auscultation bilaterally Abdomen: Soft, nondistended, tenderness in the lower quadrants, suprapubic tenderness, voluntary guarding, no rebound, no masses, no hernias, normal bowel sounds. Spine: Left CVA tenderness. No leaking at nephrostomy site, urine in nephrostomy bag appears cloudy, small amount of clots in the tubing, draining well, 300 cc urine in the bag Genitourinary: deferred Extremities: Warm. No cyanosis, clubbing, or edema. Musculoskeletal: Normal range of motion. Psychiatric: tearful. Lab Results 36hr Labs 09/30 1319 Creatinine Lvl (s) 0.76 Albumin Level 3.8 Alk Phos 76 Bili Total 0.30 BUN 9.0 Calcium Lvl 9.5 Chloride 110 CO2 29 Glucose Level 99 Potassium Level 3.7 Sodium Level 142 Total Protein 6.5 BUN/Creatinine Ratio 11.8 Globulin 2.7 A/G Ratio 1.4 AST/SGOT 11 ALT/SGPT <7 L Electrolyte Balance 3.0 L GFR Non- >60 GFR >60 Hct 40.8 Hgb 13.7 MCH 34.0 H MCHC 33.5 MCV 101.6 H MPV 6.7 Platelet 335 RBC 4.02 L RDW 15.4 WBC 7.2 Lymphocyte % 25.4 Monocyte % 8.0 Neutrophil % 60.9 Eosinophil % 4.3 Basophil % 1.4 Neutrophil, Absolute 4.4 Lymphocyte, Absolute 1.8 Monocyte, Absolute 0.6 Eosinophil, Absolute 0.3 Basophil, Absolute 0.1 Monocyte Distribution Width 14.85 Assessment/Plan Patient is a 31 yo woman with a history of stage IIIB cervical cancer s/p chemoradiation,has a history obstructive uropathy with left nephrostomy tube in place; admitted for abdominal pain, urinary symptoms concerning for pyelonephritis. >> Admit to regular floor >> Condition: Stable >> Vitals: q4hr >> Activity: Ambulate >> Diet: NPO (CLD with medications) >> IVF: NS 90 cc/hr >> DVT Prophylaxis: SCDs >> Consults: None Pyelonephritis - Directly admitted for abdominal pain and vast array of urinary symptoms - Left Nephrostomy tube in place since 2019. Last IR nephrostomy tube exchange 08/14/2022 - Recurrent history of complicated urinary tract infection with ESBL / E. coli / Enterococcus / Klebsiella pneumonia sensitive to Meropenem, Imipenem, Ertapenem, Gentamicin - Last admission on 08/08/22 she was treated with Meropenem and transitioned to PO Macrobid - UOP 300 cc in the left nephrostomy tube - Starting Meropenem 1 g q8hrs - Urinalysis and urine culture from left nephrostomy tube pending - Urinalysis and urine culture from spontaneous void pending - Blood culture pending - NM Kidney diuretic scan pending - Creatinine from today was 0.76, GFR > 60 - MIVF weight based, 90 ml/hr - Strict I's and O's History of cervical cancer - Stage IIIB SCC of cervix - S/p Chemoradiation, currently in remission -Recent CT 08/02/22 unremarkable for signs of cancer recurrence -Recent Pap smear (07/15) negative for cervical dysplasia, however positive for HPV. For 6 months follow up per Dr. Martin's last note - Port-A-Cath in place Tobacco - For Nicotine patch if patient desires - Smokes 1/2 PPD Anxiety - Declined counseling - Continue Ativan home dose PRN Asthma - Not in acute exacerbation Obstructive uropathy s/p Left Nephrostomy tube - Initially placed in 2019. - Last exchanged 08/14/22 - NM Kidney diuretic scan pending Poor appetite - MIVF weight based - NPO overnight, clears with medications - Nutrition consultation in the morning - Can consider appetite stimulants and supplements Disposition: Admit patient for management of pyelonephritis, initiating IV antibiotics, Blood and urine cultures pending, for NM Kidney scan, keep NPO, pain control. Plan for IR nephrostomy tube exchange at patient's next scheduled appointment on 10/02/22. Problem List/Past Medical History Ongoing Anxiety Asthma Cervical cancer Complicated UTI (urinary tract infection) Decreased appetite History of chemotherapy History of COVID-19 History of radiation therapy Moderate protein-calorie malnutrition Nausea and vomiting Nephrostomy status Obstructive uropathy Port-A-Cath in place Premature menopause Historical Cervicitis Chronic kidney disease, stage 3 (moderate) Encounter for antineoplastic chemotherapy Hydronephrosis of left kidney Mass of cervix Tinnitus Procedure/Surgical History Nephrostomy with tube drainage: 01/10/21 JJ stent: 11/15/20 Radiation: 06/2020 Cervical biopsy: 2019 Tumor cells, benign: 2001 Cannulation of Portacath Nephrostomy with tube drainage Medications Home Medications (8) Active acetaminophen-oxyCODONE 325 mg-5 mg oral tablet 1 tab(s), Oral, q6hr Ativan 1 mg oral tablet 1 mg = 1 tab(s), PRN, Oral, TID lidocaine 5% topical patch 1 patch(es), Topical, qDay naproxen 250 mg oral tablet 250 mg = 1 tab(s), Oral, BID Normal Saline Flush 0.9% injectable solution 0.09 gram(s) = 10 mL, IR Drain, Daily promethazine 12.5 mg rectal suppository 12.5 mg = 1 supp, PRN, Rectal, q6h Tylenol 325 mg oral capsule 650 mg, PRN, Oral, q4h Zofran 4 mg oral tablet 4 mg = 1 tab(s), PRN, Oral, q6h Allergies Penicillin (Rash) Social History Alcohol - Denies Alcohol Use, 06/13/2020 Use: Current. Type: Beer. Frequency: 1-2 times per week., 12/21/2021 Home/Environment - No Risk, 06/13/2020 Domestic Concerns: None. Living situation: Home/Independent. Safe place to go: Yes. Lives In: Mobile home, 1st floor bedroom, 1st floor bathroom. Current Home Treatments None. Professional Skilled Services or Special Community Resources None. Financial concerns: No. Marital Status: Unmarried., 06/13/2020 Nutrition/Health - No Risk, 06/13/2020 Type of diet: Regular. Appetite Fair. Eating Difficulties None. Caffeine intake amount: 1 can pop per day., 06/13/2020 Sexual Sexually active: Yes. First active at age: 18 Years. Current partners: 1. Number of lifetime partners: 7. Self described orientation: Straight or heterosexual. Other contraceptive use: condoms. History of sexual abuse: No. Gender Identity: Identifies as female., 04/12/2020 Substance Abuse - Denies Substance Abuse, 06/13/2020 Use: Never., 04/12/2020 Tobacco Nicotine Use: 5-9 cigarettes (between 1/4 to 1/2 pack)/day in last 30 days. Type: Cigarettes. Tobacco use per day: 10. Number of years: 10. Started at age: 19 Years. Previous treatment: None. Ready to change: Yes., 04/12/2020 Family History Alcohol abuse: Father. Asthma: Mother. Bladder cancer: Negative: Mother, Father, Sister, Brother, Daughter, Son and Grandparent. Breast cancer: Mother. COPD - Chronic obstructive pulmonary disease: Mother. Cancer: Sister. Diabetes: Grandparent. Heart attack: Mother. Heart disease: Mother. Hypertension: Mother. Kidney stone: Mother. Renal cancer: Negative: Mother, Father, Sister, Brother, Daughter, Son and Grandparent. Stroke: Father and Grandparent. Substance abuse: Father. Immunizations hepatitis B pediatric vaccine: 0 unknown unit (06/16/01) hepatitis B pediatric vaccine: 0 unknown unit (06/21/98) measles/mumps/rubella virus vaccine: 0 unknown unit (06/16/01) Code Status No qualifying data available. Digitally Signed by PRIMO CANELA MD on 09/30/2022 08:19 PM [id number] Evaluation + Plan noteExtracted from: Title:Gynecology Oncology Hi story and Physical Author:PRIMO CANELA MD Date:09/30/22 Patient is a 31 yo woman with a history of stage IIIB cervical cancer s/p chemoradiation, has a history obstructive uropathy with left nephrostomy tube in place; admitted for abdominal pain, urinary symptoms concerning for pyelonephritis. >> Admit to regular floor >> Condition: Stable >> Vitals: q4hr >> Activity: Ambulate >> Diet: NPO (CLD with medications) >> IVF: NS 90 cc/hr >> DVT Prophylaxis: SCDs >> Consults: None Pyelonephritis - Directly admitted for abdominal pain and vast array of urinary symptoms - Left Nephrostomy tube in place since 2019. Last IR nephrostomy tube exchange 08/14/2022 - Recurrent history of complicated urinary tract infection with ESBL / E. coli / Enterococcus / Klebsiella pneumonia sensitive to Meropenem, Imipenem, Ertapenem, Gentamicin - Last admission on 08/08/22 she was treated with Meropenem and transitioned to PO Macrobid - UOP 300 cc in the left nephrostomy tube - Starting Meropenem 1 g q8hrs - Urinalysis and urine culture from left nephrostomy tube pending - Urinalysis and urine culture from spontaneous void pending - Blood culture pending - NM Kidney diuretic scan pending - Creatinine from today was 0.76, GFR > 60 - MIVF weight based, 90 ml/hr - Strict I's and O's History of cervical cancer - Stage IIIB SCC of cervix - S/p Chemoradiation, currently in remission -Recent CT 08/02/22 unremarkable for signs of cancer recurrence -Recent Pap smear (07/15) negative for cervical dysplasia, however positive for HPV. For 6 months follow up per Dr. Martin's last note - Port-A-Cath in place Tobacco - For Nicotine patch if patient desires - Smokes 1/2 PPD Anxiety - Declined counseling - Continue Ativan home dose PRN Asthma - Not in acute exacerbation Obstructive uropathy s/p Left Nephrostomy tube - Initially placed in 2019. - Last exchanged 08/14/22 - NM Kidney diuretic scan pending Poor appetite - MIVF weight based - NPO overnight, clears with medications - Nutrition consultation in the morning - Can consider appetite stimulants and supplements Disposition: Admit patient for management of pyelonephritis, initiating IV antibiotics, Blood and urine cultures pending, for NM Kidney scan, keep NPO, pain control. Plan for IR nephrostomy tube exchange at patient's next scheduled appointment on 10/02/22. Addendum by FLIP MARTIN on October 01, 2022 08:45:59 EST I discussed the patient with the residents on September 30, 2022. I have reviewed the above documentation and clinical decision making and I agree. Future Appointments Appointment Date:01/01/2023 11:30:00 AM Scheduled Provider:FLIP MARTIN MD Location:[facility] Appointment Type:SO OV Follow Up Future Scheduled Tests Radiology* IR Neph Cath-Neph Ureter W/Guide Left 07/03/22 * IR Neph Cath-Neph Ureter W/Guide Left 08/02/22 * IR Neph Cath-Neph Ureter W/Guide Left 09/02/22 * IR Neph Cath-Neph Ureter W/Guide Left 10/02/22 * IR Neph Cath-Neph Ureter W/Guide Left 11/02/22 * IR Neph Cath-Neph Ureter W/Guide Left 12/03/22 * IR Neph Cath-Neph Ureter W/Guide Left 12/31/22 * IR Neph Cath-Neph Ureter W/Guide Left 01/31/23 * IR Neph Cath-Neph Ureter W/Guide Left 03/02/23 * IR Neph Cath-Neph Ureter W/Guide Left 04/02/23 * IR Neph Cath-Neph Ureter W/Guide Left 05/02/23 * IR Neph Cath-Neph Ureter W/Guide Left 06/02/23 [facility] 10-14-2022 Hospital Discharge instructions Patient Education 08/16/2022 13:25:49 Radiology- Nephrostomy Tube Insertion(CUSTOM) SAVANNAH Nephrostomy Tube Insertion Discharge Instructions Interventional Radiology [facility] [address] [place] [address] The procedure that you had done today is called a percutaneous nephrostomy. A catheter was placed in your back to access the urine collecting system in your kidney. This catheter will drain the urinefrom the affected kidney. You may also urinate in the normal manner from both the affected and unaffected kidney. Your urine may be blood tinged, in the bag and from regular urination, for up to 48 hours. You may have been given IV sedation during your procedure, and a local anesthetic to numb your skin. You may feel some discomfort after the local anesthetic wears off. This should gradually improve over the next several days. Diet: Resume your normal diet. Start with clear liquids; gradually add other foods as tolerated. Drink extra fluids while the catheter is in place (6-8 glasses a day). Activity: Rest for the remainder of the day. Someone must drive you home. Pain Control: Mild back discomfort on the side of the tube placement may occur for the first 24 hours and you mayexperience the feeling of needing to urinate. [id number] pain medication should be used for pain or discomfort. Please check with the physician who sent you for this procedure for their specific recommendations. If your pain is not relieved or becomes more severe, notify the physician who sent you for this procedure. If you were sedated for this procedure: Avoid alcoholic beverages for 24 hours after your procedure. Do not drive or operate heavy machinery for 24 hours after your procedure. Do not make any legal decisions for 24 hours after your procedure. Medication: Please resume on . Nephrostomy Care: Wash your hands well with soap and water before and after caring for your nephrostomy tube. Keep the skin around the nephrostomy bag dry. If the area does get wet, dry the skin completely. Avoid swimming. You may shower with the nephrostomy bag attached to the skin, sit in a shallow bath, or sponge bathe while the catheter is in place. Be sure to keep the water level below the dressingwhen tub bathing. The physician who sent you here for this procedure should have supplied you with a prescription fornephrostomy supplies. Please refer to the accompanying instructions to fill the prescription or youcan check with your pharmacy of choice and see if they can get these items for you. Change the flexible wafer and the urostomy pouch every week, or as needed if it is leaking. Keep all ports of the urostomy pouch and drainage bag as clean as possible to prevent infection. Empty the drainage bags often. Avoid overfilling. If the nephrostomy tube is needed for an extended amount of time, it is recommended that the tube be replaced by a radiologist after 8 to 10 weeks. The physician who ordered the nephrostomy tube for you will provide you with specific instructions. Optional, depending on Radiologist s recommendations: ?During the day, you may attach the urostomy pouch to a leg bag using extension tubing to make it easier to drain the bag by yourself. ?At night, you may attach the urostomy pouch to a large night time drainage bag so that the bag will not need emptied as often. When to Seek Medical Care: The tube falls out. Decreased urine output or no urine output. Abnormal bleeding. Foul odor or drainage, redness, swelling, or fever. Worsening pain If you experience any of these issues during the first 24 hours, please follow the instruction below: 8:00 am- 5:00 pm call [phone] After 5:00 pm call [phone] After 24 hours, contact the physician who ordered this procedure for you. Special Instructions: Follow Up Care 08/08/2022 16:44:45 With:FLIP MARTIN MD Address: [address] [place] [address] [place] [address]- [phone] When: Unknown Comments:call office for a follow up appointment even tho you have 1 for next year With:DOMINIQUE CUBA MD Address: [address] [place] [address] [place] [address]- When:1-2 days Comments:Accepting new patients With:PRIYANK ROWLAND MD Address: [address] [place] [address]- When:1-2 days Comments:Accepting new patients With:RYAN [facility]OTTS [facility] Address: [address] [facility] [address] [place] [address]- When:1-2 days Comments:Accepting new patients [facility] 10-14-2022 Note Discharge Instructions Thank you for allowing [facility] to assist you with your healthcare needs. The following is importantdischarge information regarding your hospital visit. Your Care Team FLIP MARTIN MD Your Diagnosis Complicated UTI (urinary tract infection) History of chemotherapy History of radiation therapy Anxiety Cervical cancer Tobacco use Nausea and vomiting Nephrostomy status Port-A-Cath in place DVT prophylaxis Premature menopause Constipation Cancer related pain What to do next Scheduled Follow-Up Appointments Appointment Type When With Where Contact InformationIR Neph Cath-Neph Ureter W/Guide Left 10/02/2022 11:00 AM EST IR SO OV Follow Up 01/01/2023 11:30 AM EST FLIP MARTIN MD [facility] Oncology [address] [place] [id number] Follow Up Appointments Follow Up with FLIP MARTIN MD When Why: call office for a follow up appointment even tho you have 1 for next year Where: [address] [place] [address] [place] [address]- [phone] Follow Up with DOMINIQUE CUBA MD When Within 1-2 days Why: Accepting new patients Where: [address] [place] [address]- Follow Up with PRIYANK ROWLAND MD When Within 1-2 days Why: Accepting new patients Where: [address] [place] [address]- Follow Up with RYAN POTTS APRN-HAZARDOUS WASTE REMOVER When Within 1-2 days Why: Accepting new patients Where: [address] [place] [address]- The Following Activity and Diet Have Been Ordered for You Discharge Activity - Ordered -- Activity As Tolerated, no driving while on narcotics, 08/16/22 13:15:00 EDT Discharge Diet - Ordered -- No changes were made to your diet during your hospital stay. Please resume your pre hospitalization diet on discharge., 08/16/22 13:15:00 EDT The Following Equipment Has Been Ordered for You No qualifying data available. The Following Treatments Have Been Ordered for You Discharge Labs No qualifying data available. Discharge Radiology No qualifying data available. Other Therapies No qualifying data available. Post Acute Orders No qualifying data available. Someone Will Contact You Regarding These Home Health Referrals No home referrals have been ordered for you. No one will call you. Allergies codeine penicillin Medications Please ask your primary doctor or pharmacist before taking any other medication not listed, including over the counter drugs, herbal medications, vitamins and or supplements as they may interact [facility]. What How Much When Why Instructions Last Dose New cyclobenzaprine (cyclobenzaprine 5 mg oral tablet) 1 tab(s) by mouth Three (3) times a day as needed for Muscle spasm Duration: 10 Days Pickup at [facility] 1724 New HYDROmorphone (Dilaudid 2 mg oral tablet) 1 tab(s) by mouth Every 4 hours as needed for as needed for pain Cancer related pain History of radiation therapy Duration: 5 Days Pickup at [facility] 172 New lidocaine topical (lidocaine 5% topical patch) 1 patch(es) Topical Once a day remove patches after 12 hours Pickup at [facility] 172 New naproxen (naproxen 250 mg oral tablet) 1 tab(s) by mouth Two (2) times a day Pickup at [facility] 172 New nitrofurantoin (Macrobid 100 mg oral capsule) 1 cap by mouth Two (2) times a day Duration: 3 Days Take with food Pickup at [facility] 172 New promethazine (promethazine 12.5 mg rectal suppository) 1 suppository(ies) in the rectum Every 6 hours as needed for for nausea/vomiting Pickup at [facility] 172 Changed acetaminophen (Tylenol 325 mg oral capsule) 650 Milligram by mouth Every 4 hours as needed for Pain, scale 1-3 Changed acetaminophen (Tylenol 325 mg oral tablet) 2 tab(s) by mouth Every 4 hours as needed for for pain Duration: 7 Days Pickup at [facility] 172 Unchanged LORazepam (Ativan 1 mg oral tablet) 1 tab(s) by mouth Three (3) times a day as needed for as needed for anxiety Cervical cancer Anxiety Duration: 30 Days Unchanged ondansetron (Zofran 4 mg oral tablet) 1 tab(s) by mouth Every 6 hours as needed for Nausea/Vomiting Duration: 30 Days Take 20-30 minutes prior to taking pain medication Unchanged sodium chloride (Normal Saline Flush 0.9% injectable solution) 10 Milliliter IR Drain Every day Pharmacy Information [facility] 172: [address] [place], [place] [id number] [phone] What How Much When Why Comments Stop Taking acetaminophen-oxyCODONE (acetaminophen-oxyCODONE 325 mg-5 mg oral tablet) 1 tab(s) by mouth Every 6 hours Cervical cancer Duration: 30 Days Stop Taking OLANZapine (OLANZapine 5 mg oral tablet) 1 tab(s) by mouth Daily at bedtime Please take this list to your next doctor s visit. Bring all medications you take, including over the counter medications, herbals and other supplements with you to your doctor s visit. Patients and families are reminded to discard old lists and to update any records with all medication providers or retail pharmacies. Education Materials SAVANNAH Nephrostomy Tube Insertion Discharge Instructions Interventional Radiology [facility] [address] [place] [address] The procedure that you had done today is called a percutaneous nephrostomy. A catheter was placed in your back to access the urine collecting system in your kidney. This catheter will drain the urinefrom the affected kidney. You may also urinate in the normal manner from both the affected and unaffected kidney. Your urine may be blood tinged, in the bag and from regular urination, for up to 48 hours. You may have been given IV sedation during your procedure, and a local anesthetic to numb your skin. You may feel some discomfort after the local anesthetic wears off. This should gradually improve over the next several days. Diet: Resume your normal diet. Start with clear liquids; gradually add other foods as tolerated. Drink extra fluids while the catheter is in place (6-8 glasses a day). Activity: Rest for the remainder of the day. Someone must drive you home. Pain Control: Mild back discomfort on the side of the tube placement may occur for the first 24 hours and you mayexperience the feeling of needing to urinate. Moxo-tqq-[id number] pain medication should be used for pain or discomfort. Please check with the physician who sent you for this procedure for their specific recommendations. If your pain is not relieved or becomes more severe, notify the physician who sent you for this procedure. If you were sedated for this procedure: Avoid alcoholic beverages for 24 hours after your procedure. Do not drive or operate heavy machinery for 24 hours after your procedure. Do not make any legal decisions for 24 hours after your procedure. Medication: Please resume on . Nephrostomy Care: Wash your hands well with soap and water before and after caring for your nephrostomy tube. Keep the skin around the nephrostomy bag dry. If the area does get wet, dry the skin completely. Avoid swimming. You may shower with the nephrostomy bag attached to the skin, sit in a shallow bath, or sponge bathe while the catheter is in place. Be sure to keep the water level below the dressingwhen tub bathing. The physician who sent you here for this procedure should have supplied you with a prescription fornephrostomy supplies. Please refer to the accompanying instructions to fill the prescription or youcan check with your pharmacy of choice and see if they can get these items for you. Change the flexible wafer and the urostomy pouch every week, or as needed if it is leaking. Keep all ports of the urostomy pouch and drainage bag as clean as possible to prevent infection. Empty the drainage bags often. Avoid overfilling. If the nephrostomy tube is needed for an extended amount of time, it is recommended that the tube be replaced by a radiologist after 8 to 10 weeks. The physician who ordered the nephrostomy tube for you will provide you with specific instructions. Optional, depending on Radiologist s recommendations: ? During the day, you may attach the urostomy pouch to a leg bag using extension tubing to make it easier to drain the bag by yourself. ? At night, you may attach the urostomy pouch to a large night time drainage bag so that the bag will not need emptied as often. When to Seek Medical Care: The tube falls out. Decreased urine output or no urine output. Abnormal bleeding. Foul odor or drainage, redness, swelling, or fever. Worsening pain If you experience any of these issues during the first 24 hours, please follow the instruction below: 8:00 am- 5:00 pm call [phone] After 5:00 pm call [phone] After 24 hours, contact the physician who ordered this procedure for you. Special Instructions: Additional Information VACCINATE! IT SAVES LIVES! Members of the community who have not yet received the COVID-19 vaccine and would like to receive it can visit one of [facility] vaccine clinics. There are many vaccine clinic locations within the [facility]. For locations and available times, please visit [email or web address] It is important to note that some COVID mobile vaccine clinics are held outdoors and may be canceled in rainy or stormy conditions. To learn more about pediatric vaccinations (ages 5-11), we invite you to visit the [facility] webpage. [email or web address] [email or web address] learn more about the COVID-19 vaccine, we invite you to visit the [facility] website for a list of frequently asked questions. [email or web address] [facility] Patient Portal Access Instructions: Stay connected with your healthcare team and access your personal medical information anytime with the [facility] Patient Portal.If you would like a full copy of your medical records, please contact the [facility] Medical Records Department, Friday through Friday between 8a.m. and 4:30p.m. Please follow the directions below to access the portal: 1.Access the email account you provided upon registration to the [facility].2.Look for an invitation email from [facility].3.Open the email and access the invitation link: Accept Invitation to [facility].Fill in the required quintero to create your account. Sign into [email or web address] with your username and password that you created in the above steps to stay up to date. You can then view a summary of results, a summary of your visits, and the ability to download your summaries to your computer or send the information securely to a physician. Remember that your healthcare information is confidential, so carefully consider who you will allow to register on the [facility] Patient Portal for access to your information. You can also access the [facility] Patient Portal on the [employer]. Simply click on Health Records under [place] and then click on the [employer] logo. HOW TO SAFELY DISPOSE OF PRESCRIPTION MEDICATIONS Please use one of the following methods to safely dispose of your unused medications. 1.Use a drug disposal kit: the drug disposal pouch allows you to safely discard your old and unuseddrugs. Ask your nurse to give you one when you are discharged.2.Visit a local take-back location: Many local pharmacies and police departments have programs that collect old and unwanted prescriptiondrugs. Call your local pharmacy or go to http://Wishabi.ConsumerBell/6G7Qr9v to find one close to you.3.Make use of household items: Use cat litter or old coffee grounds to dispose medications if other options arenot available. Mix your drugs with these household products, seal them in an airtight container andthrow it into the garbage. Call [facility]: [phone] to be sure your drugs can be disposed of in this way. Some medicines may require a different approach.4.Never flush your medications down the toilet. IF YOU HAVE BEEN PRESCRIBED AN OPIOID FOR PAIN If you have been prescribed an opioid (such as hydrocodone, oxycodone or morphine), it is critical to understand the possible side effects and risks of opioid pain medications. Even when taken as directed, opioids can have several side effects including: Tolerance, meaning you might need to take more of a medication for the same pain relief. Nausea, vomiting and/or constipation. Sleepiness, dizziness, dry mouth, confusion, depression or itching. Physical dependence, meaning you have withdrawal symptoms when a medication is stopped, can develop within a few days. KNOW YOUR RESPONSIBILITIES It is important to know exactly how much and how often to take the opioid pain medications you are prescribed. Never take opioids in higher amounts or more often than prescribed. Do not combine opioids with alcohol or other drugs that cause drowsiness, such as benzodiazepines, also known as benzos, including diazepam and alprazolam, muscle relaxants or sleep aids. Never sell or share prescription opioids. This is illegal. Store opioids in a secure place and out of reach of others (including children, family, friends and visitors). The last page of this document has been signed and retained as a CHART COPY. Signatures Patient Education Materials Radiology- Nephrostomy Tube Insertion(CUSTOM) Medication Leaflets My discharge plan and instructions have been reviewed and explained to me and I,LALY NAVAS understand my current condition and have read and understand these discharge instructions. I have received a written copy of the plan/instructions. If I have questions, I am aware that I should contact my doctor. 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 I explained our recommendation would be to continue with the same since she is getting better relief. Objective Vitals and Measurements T: 36.7 C (Oral) TMIN: 36.4 C (Oral) TMAX: 36.8 C (Oral) HR: 107 RR: 16 BP: 102/75 SpO2: 99% Intake and Output 7AM Yesterday to 7AM Today Intake and Output (Last 24 hours) Intake Oral Intake 360.00 Output Urine Voided 350.00 Urostomy Output: 1300.00 Stool Count 0.00 Urine Count 2.00 Total Summary Total Intake 360.00 Total Output 1650.00 Fluid Balance -1290.00 Physical Exam GEN: NAD Resp: EAsy and unlabored Neuro: A&Ox3 Psych: no agitation noted. Weight Dosing Weight: 52.5 kg (08/08/22) Medications Medications (23) Active Scheduled: (15) acetaminophen 500 mg Tablet 1,000 mg 2 tab(s), Oral, TID cyclobenzaprine 5 mg tablet 5 mg 1 tab(s), Oral, BID docusate sodium 100 mg Capsule 100 mg 1 cap(s), Oral, BID gabapentin 100 mg Capsule 200 mg 2 cap(s), Oral, BID heparin 5,000 units/mL (1 mL) vial 5,000 unit(s) 1 mL, Subcutaneous, q8h lidocaine patch REMOVAL 1 EA, Miscellaneous, q24h lidocaine topical 4% patch 1 patch(es), Transdermal, q24h LORAZEPam 1 mg Tablet 1 mg 1 tab(s), Oral, q8h meropenem 2 gram(s), IV Piggyback, q8h naproxen sodium 220 mg tablet 220 mg 1 tab(s), Oral, q12h Nicoderm patch REMOVAL 1 EA, Miscellaneous, q24h nicotine 14 mg/24 hr ER patch 14 mg 1 patch(es), Transdermal, q24h nitrofurantoin macrocrystals-MONOHYDRATE 100 mg Capsule 100 mg 1 cap(s), Oral, BIDM phenazopyridine 100 mg tablet 100 mg 1 tab(s), Oral, TIDPC tamsulosin 0.4 mg Capsule 0.4 mg 1 cap(s), Oral, qDayPC Continuous: (0) PRN: (8) diphenhydramine 25 mg tablet 25 mg 1 tab(s), Oral, qHS famotidine 20 mg tablet 20 mg 1 tab(s), Oral, BID hydromorphone 2 mg tablet 2 mg 1 tab(s), Oral, q4h melatonin 3 mg tablet 3 mg 1 tab(s), Oral, qHS ondansetron 2 mg/ 1 mL 2 mL INJ 4 mg 2 mL, IV Push, q4h pantoprazole 40 mg VIAL 40 mg, IV Push, qDay promethazine 25 mg Suppository 25 mg 1 supp, Rectal, BID promethazine 25 mg Suppository 25 mg 1 supp, Rectal, q6h Lab Results 08/16 05:25 WBC: 5.6 Hgb: 12.4 Hct: 37.0 Platelet: 393 Neutrophil %: 48.9 L Glucose Level: 83 Sodium Level: 139 Potassium Level: 3.7 BUN: 7.0 L Creatinine Lvl (s): 0.85 08/15 05:52 WBC: 6.9 Hgb: 12.2 Hct: 35.9 Platelet: 382 Neutrophil %: 55.2 Glucose Level: 76 Sodium Level: 138 Potassium Level: 3.8 BUN: 5.0 L Creatinine Lvl (s): 0.80 EKG No qualifying data available. Assessment/Plan Palliative care encounter: 31-year-old female with a past medical history significant for cervical cancer status post nephrostomy tube, currently in a remission. We were consulted to assist with painmanagement. Goals of care: Patient wishes to remain aggressive with her overall medical management. CODE STATUS: Full code Chronic pain, etiology potentially from her history of surgical intervention for her cervical cancer, as well as radiation therapy. Patient's pain wasy not being well controlled on her oral oxycodone. She was on IV Dilaudid 1 mg every 2 hours as needed for pain. She expressed that the Dilaudid was effective. There was concern that she needs an opioid rotation due to ineffective pain control, as the patient has been on oxycodone for greater than 6 months. Patient's pain is better controlled at this point with the oral Dilaudid then with the oxycodone. Our recommendations would be to continue with the 2 mg p.o. every 4 hours as needed pain. Also to continue with the naproxen to 20 p.o. twice daily and the Tylenol 1 g p.o. 3 times daily. In the future if the patient continues to show that she is requiring Dilaudid on an every 4 hour basis, the [facility] team may want to consider starting her on a long-acting pain medicine if they felt as though that was appropriate. I did explain to Dr. Fitzgerald since this is a chronic pain, we would not manage in the outpatient setting. Patient's OARRS re port was reviewed. Digitally Signed by LESIA DENIS on 08/16/2022 01:17 PM [facility] [id number] Note Date of Service 08/16/2022 Chief Complaint flank/vaginal/urethral pain Subjective Patient seen and examined with Dr. Graves. Did not sleep well last night. Still having pain. General: Denies fever, chills, headaches CV/Resp: Denies chest pain, shortness of breath and dizziness GI/: Denies dysuria, diarrhea, constipation Ext: Denies leg pain, edema Objective Vitals and Measurements T: 36.5 C (Oral) TMIN: 36.5 C (Oral) TMAX: 36.8 C (Oral) HR: 92 RR: 16 BP: 108/82 SpO2: 97% Intake and Output 7AM Yesterday to 7AM Today Intake and Output (Last 24 hours) Intake Oral Intake 240.00 Output Urine Voided 350.00 Urostomy Output: 1650.00 Stool Count 0.00 Urine Count 2.00 Total Summary Total Intake 240.00 Total Output 2000.00 Fluid Balance -1760.00 Physical Exam Gen: AAOx3. NAD. CV: RRR Resp: CTAB, no wheezes or rales. No increased work of breathing. No accessory muscles use. Converses easily. Abdom: Soft, nontender, nondistended. +BS [id number] Extrem: no edema, no erythema, nontender Weight Dosing Weight: 52.5 kg (08/08/22) Medications Medications (20) Active Scheduled: (12) acetaminophen 500 mg Tablet 1,000 mg 2 tab(s), Oral, TID docusate sodium 100 mg Capsule 100 mg 1 cap(s), Oral, BID gabapentin 100 mg Capsule 200 mg 2 cap(s), Oral, BID heparin 5,000 units/mL (1 mL) vial 5,000 unit(s) 1 mL, Subcutaneous, q8h LORAZEPam 1 mg Tablet 1 mg 1 tab(s), Oral, q8h meropenem 2 gram(s), IV Piggyback, q8h naproxen sodium 220 mg tablet 220 mg 1 tab(s), Oral, q12h Nicoderm patch REMOVAL 1 EA, Miscellaneous, q24h nicotine 14 mg/24 hr ER patch 14 mg 1 patch(es), Transdermal, q24h nitrofurantoin macrocrystals-MONOHYDRATE 100 mg Capsule 100 mg 1 cap(s), Oral, BIDM phenazopyridine 100 mg tablet 100 mg 1 tab(s), Oral, TIDPC tamsulosin 0.4 mg Capsule 0.4 mg 1 cap(s), Oral, qDayPC Continuous: (0) PRN: (8) diphenhydramine 25 mg tablet 25 mg 1 tab(s), Oral, qHS famotidine 20 mg tablet 20 mg 1 tab(s), Oral, BID hydromorphone 2 mg tablet 2 mg 1 tab(s), Oral, q4h melatonin 3 mg tablet 3 mg 1 tab(s), Oral, qHS ondansetron 2 mg/ 1 mL 2 mL INJ 4 mg 2 mL, IV Push, q4h pantoprazole 40 mg VIAL 40 mg, IV Push, qDay promethazine 25 mg Suppository 25 mg 1 supp, Rectal, BID promethazine 25 mg Suppository 25 mg 1 supp, Rectal, q6h Lab Results 08/16 05:25 WBC: 5.6 Hgb: 12.4 Hct: 37.0 Platelet: 393 Neutrophil %: 48.9 L Glucose Level: 83 Sodium Level: 139 Potassium Level: 3.7 BUN: 7.0 L Creatinine Lvl (s): 0.85 08/15 05:52 WBC: 6.9 Hgb: 12.2 Hct: 35.9 Platelet: 382 Neutrophil %: 55.2 Glucose Level: 76 Sodium Level: 138 Potassium Level: 3.8 BUN: 5.0 L Creatinine Lvl (s): 0.80 Imaging Results and Diagnostics XR Abdomen 2 Views w/ Decub/Erect Result Date: August 12, 2022 Verified By: CLOTILDE ARCHER MD CLINICAL STATEMENT: IMPRESSION: Nonobstructive bowel gas pattern. Small to moderate stool burden. I have personally reviewed the images of this examination and agree with the resident's findings and interpretation. US Renal Result Date: August 09, 2022 Verified By: HERNANDEZ RODRIGEZ MD CLINICAL STATEMENT: IMPRESSION: Normal appearing right kidney, without evidence of obstruction. Partially visualized left percutaneous nephroureteral catheter. Otherwisenormal left kidney. Preliminary Report was Dictated by a Resident Assessment/Plan 1. Complicated UTI (urinary tract infection) 2. History of chemotherapy 3. History of radiation therapy 4. Anxiety 5. Cervical cancer 6. Tobacco use 7. Nausea and vomiting 8. Nephrostomy status 9. Port-A-Cath in place 10. DVT prophylaxis 11. Premature menopause 12. Constipation Patient is a 31 yo with a h/o cervical cancer with L nephrostomy tube, admitted for pain control and UTI Condition: Stable IVF: NS 75ml/hr Diet: Regular GI Prophylaxis: Protonix VTE Prophylaxis: SCDs, Heparin TID Code: Full 1. Urinary tract infection, acute -Direct admission for severe vaginal and suprapubic pain, urinary retention, bilateral flank pain, recent symptomatic UTI without resolution of symptoms after antibiotics - Creatinine stable throughout admission - Renal ultrasound unremarkable 08/09 - Tamsulosin + Pyridium started, Olanzapine discontinued 08/10 - Urine culture >100,000 cfu/ml Escherichia coli; 100,000 cfu/ml Escherichia coli #2 - Continue Meropenem - 08/14 Nephrostomy exchanged - Transitioned to Macrobrid 100 BID yesterday, plan to continue for 3 more days 2. Pain - Discussed pain managment with palliative yesterday, ordered pain medication per their input - Naproxen Sodium 220mg BID, Tylenol 1g TID, Dilaudid 2mg q4 PRN - CMP stable - Will monitor 3. History of chemotherapy - S/p 6 cycles of cisplatin in 2019, as well as radiation therapy - Cancer status: remission - Patient with chest port on right side, no signs of secondary infection 4. Anxiety - Ativan TID PRN - Consider psychology consult outpatient 5. Cervical cancer - Stage 3b SCC of cervix - S/p Chemoradiation, in remission - Recent CT 08/02/22 unremarkable for signs of cancer recurrence - Recent Pap smear (07/15) negative for cervical dysplasia, however positive for HPV, for colposcopy - Followed by Dr. Martin 6. Tobacco use 7. Nausea and vomiting - Phenergen rectal PRN, Zofran PRN 8. Nephrostomy status - Exchanged 08/14, good output 9. Port-A-Cath in place - No current signs of infection 10. DVT prophylaxis - SCDs, encouraged ambulation - Consider PT Dispo: continue inpatient management. will discuss with attending. Digitally Signed by ALANNA SCANLON DO on 08/16/2022 06:57 AM Digitally Signed by ASHLEY GRAVES MD Digitally Signed by CLOTILDE GARCIA MD [facility] [id number] Note Date of Service 08/15/2022 Chief Complaint Pain Subjective Patient seen and examined with Dr. Graves. Pain is better controlled this AM. No new complaints. Denies BM. General: Denies fever, chills, headaches CV/Resp: Denies chest pain, shortness of breath and dizziness GI/: Denies dysuria, diarrhea, constipation Ext: Denies leg pain, edema Objective Vitals and Measurements T: 36.6 C (Oral) TMIN: 36.6 C (Oral) TMAX: 37 C (Oral) HR: 94 RR: 16 BP: 101/71 SpO2: 98% Intake and Output 7AM Yesterday to 7AM Today Intake and Output (Last 24 hours) Intake Administration Information 600.00 Oral Intake 400.00 Output Urine Voided 750.00 Urostomy Output: 250.00 Stool Count 0.00 Total Summary Total Intake 1000.00 Total Output 1000.00 Fluid Balance 0.00 Physical Exam Gen: AAOx3. NAD. CV: RRR Resp: CTAB, no wheezes or rales. No increased work of breathing. No accessory muscles use. Converses easily. Abdom: Soft, nontender, nondistended. +BS [id number] Extrem: no edema, no erythema, nontender Weight Dosing Weight: 52.5 kg (08/08/22) Medications Medications (21) Active Scheduled: (9) docusate sodium 100 mg Capsule 100 mg 1 cap(s), Oral, BID gabapentin 100 mg Capsule 200 mg 2 cap(s), Oral, BID heparin 5,000 units/mL (1 mL) vial 5,000 unit(s) 1 mL, Subcutaneous, q8h LORAZEPam 1 mg Tablet 1 mg 1 tab(s), Oral, q8h meropenem 2 gram(s), IV Piggyback, q8h Nicoderm patch REMOVAL 1 EA, Miscellaneous, q24h nicotine 14 mg/24 hr ER patch 14 mg 1 patch(es), Transdermal, q24h phenazopyridine 100 mg tablet 100 mg 1 tab(s), Oral, TIDPC tamsulosin 0.4 mg Capsule 0.4 mg 1 cap(s), Oral, qDayPC Continuous: (1) NS (0.9% nacl) 1,000 mL 1,000 mL, Intravenous, 75 mL/hr PRN: (11) diphenhydramine 25 mg tablet 25 mg 1 tab(s), Oral, qHS famotidine 20 mg tablet 20 mg 1 tab(s), Oral, BID HYDROmorphone 0.5 mg/0.5 mL PF syringe 0.5 mg 0.5 mL, IV Push, q2h hydromorphone 1 mg/mL (1mL) INJ 1 mg 1 mL, IV Push, q2h melatonin 3 mg tablet 3 mg 1 tab(s), Oral, qHS ondansetron 2 mg/ 1 mL 2 mL INJ 4 mg 2 mL, IV Push, q4h oxycodone 5 mg tablet (immediate release) 5 mg 1 tab(s), Oral, q4h oxycodone 5 mg tablet (immediate release) 10 mg 2 tab(s), Oral, q4h pantoprazole 40 mg VIAL 40 mg, IV Push, qDay promethazine 25 mg Suppository 25 mg 1 supp, Rectal, BID promethazine 25 mg Suppository 25 mg 1 supp, Rectal, q6h Lab Results 08/15 05:52 WBC: 6.9 Hgb: 12.2 Hct: 35.9 Platelet: 382 Neutrophil %: 55.2 Glucose Level: 76 Sodium Level: 138 Potassium Level: 3.8 BUN: 5.0 L Creatinine Lvl (s): 0.80 08/14 05:25 WBC: 5.9 Hgb: 11.8 L Hct: 35.2 Platelet: 364 Neutrophil %: 47.7 L Glucose Level: 84 Sodium Level: 140 Potassium Level: 3.6 BUN: <5.0 L Creatinine Lvl (s): 0.86 Assessment/Plan 1. Complicated UTI (urinary tract infection) 2. History of chemotherapy 3. History of radiation therapy 4. Anxiety 5. Cervical cancer 6. Tobacco use 7. Nausea and vomiting 8. Nephrostomy status 9. Port-A-Cath in place 10. DVT prophylaxis 11. Premature menopause 12. Constipation Patient is a 31 yo with a h/o cervical cancer with L nephrostomy tube, admitted for pain control and UTI Condition: Stable IVF: NS 75ml/hr Diet: Regular GI Prophylaxis: Protonix VTE Prophylaxis: SCDs, Heparin TID Code: Full 1. Urinary tract infection, acute -Direct admission for severe vaginal and suprapubic pain, urinary retention, bilateral flank pain, recent symptomatic UTI without resolution of symptoms after antibiotics - Creatinine stable throughout admission - Renal ultrasound unremarkable 08/09 - Tamsulosin + Pyridium started, Olanzapine discontinued 08/10 - Urine culture >100,000 cfu/ml Escherichia coli; 100,000 cfu/ml Escherichia coli #2 - Continue Meropenem - 08/14 Nephrostomy exchanged - Adequate urine output overnight 2. Pain - Oxycodone 5/10 mg q4 PRN - Gabapentin 200mg BID, Ofirmev q12 PRN - Will d/c Dilaudid to transition for discharge - Well managed 3. History of chemotherapy - S/p 6 cycles of cisplatin in 2019, as well as radiation therapy - Cancer status: remission - Patient with chest port on right side, no signs of secondary infection 4. Anxiety - Ativan TID PRN - Consider psychology consult 5. Cervical cancer - Stage 3b SCC of cervix - S/p Chemoradiation, in remission - Recent CT 08/02/22 unremarkable for signs of cancer recurrence - Recent Pap smear (07/15) negative for cervical dysplasia, however positive for HPV, for colposcopy - Followed by Dr. Martin 6. Tobacco use 7. Nausea and vomiting - Phenergen rectal PRN, Zofran PRN 8. Nephrostomy status - Exchanged 08/14, good output 9. Port-A-Cath in place - No current signs of infection 10. DVT prophylaxis - SCDs, encouraged ambulation - Consider PT Dispo: continue inpatient management. will discuss with attending. Digitally Signed by ALANNA SCANLON DO on 08/15/2022 07:51 AM Digitally Signed by ALANNA SCANLON DO on 08/15/2022 08:02 AM [id number] Palliative care Consult note Date of Service 08/15/[address] Alanna Scanlon CC Pain Reason for Consult Pain management History of Present Illness Ms. Navas is a 31 year old female with with past medical history significant for cervical cancer status post nephrostomy tube. Patient is currently in remission from her cancer, most recent scans from in July are not showing any evidence of disease recurrence. Patient was admitted to the hospital for a urinary tract infection. Dr. Martin's group has been managing the same. We were asked to see the patient for pain management. Patient appears to have chronic pain potentially from her surgical history and radiation therapy, she has been getting Percocet 5/325 since approximately January 2022.Since the patient was hospitalized she has been getting 1 mg of IV Dilaudid every 2 hours as needed pain. They attempted to take the patient off of her Dilaudid today and switch her back to her oxycodone, and unfortunately were unsuccessful. Patient attest that the Dilaudid was doing a good job controlling her pain, and that the oxycodone is no longer working. Patient explains that the pain is inher vagina and her urethra, as well as the left side from the front to back. Patient is denying anyissues with constipation. Review of Systems As in the HPI. All other systems reviewed and are negative. Physical Exam Vitals and Measurements T: 36.6 C (Oral) TMIN: 36.6 C (Oral) TMAX: 37 C (Oral) HR: 98 RR: 16 BP: 116/84 SpO2: 100% Weight Dosing Weight: 52.5 kg (08/08/22) GENERAL: The patient is pleasant, cooperative. No acute distress. SKIN: No skin rashes or lesions are noted. No cyanosis, clubbing. HEENT: Head is normocephalic and atraumatic. The neck is supple with a full range of motion. Cardiovascular: Regular rate and rhythm. S1S2. No murmur. No edema. Respiratory: Clear to auscultation. Unlabored. GI: Soft , flat, and nontender. BSx4. Neurological: Alert and oriented x3. No focal neurological deficits noted. Musculoskeletal: No muscle wasting. No Weakness noted. No gross deformity. Psych: agitation noted. Lab Results 08/15 05:52 WBC: 6.9 Hgb: 12.2 Hct: 35.9 Platelet: 382 Neutrophil %: 55.2 Glucose Level: 76 Sodium Level: 138 Potassium Level: 3.8 BUN: 5.0 L Creatinine Lvl (s): 0.80 08/14 05:25 WBC: 5.9 Hgb: 11.8 L Hct: 35.2 Platelet: 364 Neutrophil %: 47.7 L Glucose Level: 84 Sodium Level: 140 Potassium Level: 3.6 BUN: <5.0 L Creatinine Lvl (s): 0.86 Imaging Results and Diagnostics XR Abdomen 2 Views w/ Decub/Erect Result Date: August 12, 2022 Verified By: BEAR LORA, CLOTILDE Choe CLINICAL STATEMENT: IMPRESSION: Nonobstructive bowel gas pattern. Small to moderate stool burden. I have personally reviewed the images of this examination and agree with the resident's findings and interpretation. US Renal Result Date: August 09, 2022 Verified By: HERNANDEZ RODRIGEZ MD CLINICAL STATEMENT: IMPRESSION: Normal appearing right kidney, without evidence of obstruction. Partially visualized left percutaneous nephroureteral catheter. Otherwisenormal left kidney. Preliminary Report was Dictated by a Resident Palliative Assessment and Recommendations Palliative care encounter: 31-year-old female with a past medical history significant for cervical cancer status post nephrostomy tube, currently in a remission. We were consulted to assist with painmanagement. Goals of care: Patient wishes to remain aggressive with her overall medical management. CODE STATUS: Full code Chronic pain, etiology potentially from her history of surgical intervention for her cervical cancer, as well as radiation therapy. Patient's pain is currently not being well controlled on her oral oxycodone. She was on IV Dilaudid 1 mg every 2 hours as needed for pain. Expresses that the Dilaudid was effective. There is a concern that she needs an opioid rotation due to ineffective pain control,as the patient has been on oxycodone for greater than 6 months. Our recommendations would be to transition her to oral Dilaudid 2 mg p.o. every 4 hours as needed pain, hold for sedation. Also to start naproxen 220 mg p.o. twice daily, and Tylenol 1 g p.o. 3 times daily, as long as its not contraindi cated. We would recommend holding off on starting a long-acting pain medicine at this point in time. I did explain to Dr. Scanlon that since this is a chronic pain, we would not manage in the outpatient setting. I did review the above recommendations with her, and asked that if they were okay with that they placed the orders as they would be the ones managing her pain in the outpatient setting. I did also express to the team that since her pain is not well controlled right now, I would recommendholding discharge until they find out if the new regimen was effective. Patient's OARRS report was reviewed. Thank you very much for this consult allowing us to participate in the care of your patient. Total of 62 minutes was spent in patient care with more than 50% of the time spent on patient counseling and coordination of care. Problem List/Past Medical History Ongoing Acute kidney injury Anxiety Asthma Cervical cancer Complicated UTI (urinary tract infection) Decreased appetite Dehydration DVT prophylaxis History of chemotherapy History of COVID-19 History of radiation therapy Left flank pain Moderate protein-calorie malnutrition Nausea and vomiting Nephrostomy status Obstructive uropathy Port-A-Cath in place Premature menopause Historical Cervicitis Chronic kidney disease, stage 3 (moderate) Encounter for antineoplastic chemotherapy Hydronephrosis of left kidney Mass of cervix Tinnitus Procedure/Surgical History Nephrostomy with tube drainage: 01/10/21 JJ stent: 11/15/20 Radiation: 06/2020 Cervical biopsy: 2019 Tumor cells, benign: 2001 Cannulation of Portacath Nephrostomy with tube drainage Medications Inpatient Ativan, 1 mg= 1 tab(s), Oral, q8h Benadryl, 25 mg= 1 tab(s), Oral, qHS, PRN Colace, 100 mg= 1 cap(s), Oral, BID Flomax, 0.4 mg= 1 cap(s), Oral, qDayPC gabapentin, 200 mg= 2 cap(s), Oral, BID heparin 5000 units/mL injection, 5000 unit(s)= 1 mL, Subcutaneous, q8h lidocaine 1% preservative-free injectable solution, 2.5 mg= 0.25 mL, Intradermal, prep pharm lidocaine 1% preservative-free injectable solution, 2.5 mg= 0.25 mL, Intradermal, prep pharm Macrobid, 100 mg= 1 cap(s), Oral, BIDM melatonin, 3 mg= 1 tab(s), Oral, qHS, PRN meropenem Nicoderm C-Q 14 mg/24 hr transdermal film, extended release, 14 mg= 1 patch(es), Transdermal, q24h nicotine (Nicoderm Patch REMOVAL), 1 EA, Miscellaneous, q24h Ofirmev IVPB, 1000 mg= 100 mL, IV Piggyback, q12h, PRN oxyCODONE 5 mg oral tablet ( IMMEDIATE release ), 5 mg= 1 tab(s), Oral, q4h, PRN oxyCODONE 5 mg oral tablet ( IMMEDIATE release ), 15 mg= 3 tab(s), Oral, q4h, PRN Pepcid, 20 mg= 1 tab(s), Oral, BID, PRN Phenergan, 25 mg= 1 supp, Rectal, q6h, PRN Phenergan, 25 mg= 1 supp, Rectal, BID, PRN Protonix IV Push, 40 mg, IV Push, qDay, PRN Pyridium, 100 mg= 1 tab(s), Oral, TIDPC Zofran, 4 mg= 2 mL, IV Push, q4h, PRN Home acetaminophen-oxyCODONE 325 mg-5 mg oral tablet, 1 tab(s), Oral, q6hr Ativan 1 mg oral tablet, 1 mg= 1 tab(s), Oral, TID, PRN, 4 refills Normal Saline Flush 0.9% injectable solution, 0.09 gram(s)= 10 mL, IR Drain, Daily, 12 refills OLANZapine 5 mg oral tablet, 5 mg= 1 tab(s), Oral, qHS, 3 refills Tylenol 325 mg oral capsule, 650 mg, Oral, q4h, PRN Zofran 4 mg oral tablet, 4 mg= 1 tab(s), Oral, q6h, PRN, 1 refills Allergies codeine penicillin Social History Alcohol - Denies Alcohol Use, 06/13/2020 Use: Current. Type: Beer. Frequency: 1-2 times per week., 12/21/2021 Home/Environment - No Risk, 06/13/2020 Domestic Concerns: None. Living situation: Home/Independent. Safe place to go: Yes. Lives In: Mobile home, 1st floor bedroom, 1st floor bathroom. Current Home Treatments None. Professional Skilled Services or Special Community Resources None. Financial concerns: No. Marital Status: Unmarried., 06/13/2020 Nutrition/Health - No Risk, 06/13/2020 Type of diet: Regular. Appetite Fair. Eating Difficulties None. Caffeine intake amount: 1 can pop per day., 06/13/2020 Sexual Sexually active: Yes. First active at age: 18 Years. Current partners: 1. Number of lifetime partners: 7. Self described orientation: Straight or heterosexual. Other contraceptive use: condoms. History of sexual abuse: No. Gender Identity: Identifies as female., 04/12/2020 Substance Abuse - Denies Substance Abuse, 06/13/2020 Use: Never., 04/12/2020 Tobacco Nicotine Use: 5-9 cigarettes (between 1/4 to 1/2 pack)/day in last 30 days. Type: Cigarettes. Tobacco use per day: 10. Number of years: 10. Started at age: 19 Years. Previous treatment: None. Ready to change: Yes., 04/12/2020 Family History Alcohol abuse: Father. Asthma: Mother. Bladder cancer: Negative: Mother, Father, Sister, Brother, Daughter, Son and Grandparent. Breast cancer: Mother. COPD - Chronic obstructive pulmonary disease: Mother. Cancer: Sister. Diabetes: Grandparent. Heart attack: Mother. Heart disease: Mother. Hypertension: Mother. Kidney stone: Mother. Renal cancer: Negative: Mother, Father, Sister, Brother, Daughter, Son and Grandparent. Stroke: Father and Grandparent. Substance abuse: Father. Code Status Code Status - Ordered -- 08/09/22 13:50:00 EDT, Full Code, Constant Order Digitally Signed by LESIA DENIS on 08/15/2022 03:37 PM [id number] Note Date of Service 08/15/2022 Chief Complaint Pain Subjective Patient seen and examined with Dr. Graves. Pain is better controlled this AM. No new complaints. Denies BM. General: Denies fever, chills, headaches CV/Resp: Denies chest pain, shortness of breath and dizziness GI/: Denies dysuria, diarrhea, constipation Ext: Denies leg pain, edema Objective Vitals and Measurements T: 36.6 C (Oral) TMIN: 36.6 C (Oral) TMAX: 37 C (Oral) HR: 94 RR: 16 BP: 101/71 SpO2: 98% Intake and Output 7AM Yesterday to 7AM Today Intake and Output (Last 24 hours) Intake Administration Information 600.00 Oral Intake 400.00 Output Urine Voided 750.00 Urostomy Output: 250.00 Stool Count 0.00 Total Summary Total Intake 1000.00 Total Output 1000.00 Fluid Balance 0.00 Physical Exam Gen: AAOx3. NAD. CV: RRR Resp: CTAB, no wheezes or rales. No increased work of breathing. No accessory muscles use. Converses easily. Abdom: Soft, nontender, nondistended. +BS [id number] Extrem: no edema, no erythema, nontender Weight Dosing Weight: 52.5 kg (08/08/22) Medications Medications (21) Active Scheduled: (9) docusate sodium 100 mg Capsule 100 mg 1 cap(s), Oral, BID gabapentin 100 mg Capsule 200 mg 2 cap(s), Oral, BID heparin 5,000 units/mL (1 mL) vial 5,000 unit(s) 1 mL, Subcutaneous, q8h LORAZEPam 1 mg Tablet 1 mg 1 tab(s), Oral, q8h meropenem 2 gram(s), IV Piggyback, q8h Nicoderm patch REMOVAL 1 EA, Miscellaneous, q24h nicotine 14 mg/24 hr ER patch 14 mg 1 patch(es), Transdermal, q24h phenazopyridine 100 mg tablet 100 mg 1 tab(s), Oral, TIDPC tamsulosin 0.4 mg Capsule 0.4 mg 1 cap(s), Oral, qDayPC Continuous: (1) NS (0.9% nacl) 1,000 mL 1,000 mL, Intravenous, 75 mL/hr PRN: (11) diphenhydramine 25 mg tablet 25 mg 1 tab(s), Oral, qHS famotidine 20 mg tablet 20 mg 1 tab(s), Oral, BID HYDROmorphone 0.5 mg/0.5 mL PF syringe 0.5 mg 0.5 mL, IV Push, q2h hydromorphone 1 mg/mL (1mL) INJ 1 mg 1 mL, IV Push, q2h melatonin 3 mg tablet 3 mg 1 tab(s), Oral, qHS ondansetron 2 mg/ 1 mL 2 mL INJ 4 mg 2 mL, IV Push, q4h oxycodone 5 mg tablet (immediate release) 5 mg 1 tab(s), Oral, q4h oxycodone 5 mg tablet (immediate release) 10 mg 2 tab(s), Oral, q4h pantoprazole 40 mg VIAL 40 mg, IV Push, qDay promethazine 25 mg Suppository 25 mg 1 supp, Rectal, BID promethazine 25 mg Suppository 25 mg 1 supp, Rectal, q6h Lab Results 08/15 05:52 WBC: 6.9 Hgb: 12.2 Hct: 35.9 Platelet: 382 Neutrophil %: 55.2 Glucose Level: 76 Sodium Level: 138 Potassium Level: 3.8 BUN: 5.0 L Creatinine Lvl (s): 0.80 08/14 05:25 WBC: 5.9 Hgb: 11.8 L Hct: 35.2 Platelet: 364 Neutrophil %: 47.7 L Glucose Level: 84 Sodium Level: 140 Potassium Level: 3.6 BUN: <5.0 L Creatinine Lvl (s): 0.86 Assessment/Plan 1. Complicated UTI (urinary tract infection) 2. History of chemotherapy 3. History of radiation therapy 4. Anxiety 5. Cervical cancer 6. Tobacco use 7. Nausea and vomiting 8. Nephrostomy status 9. Port-A-Cath in place 10. DVT prophylaxis 11. Premature menopause 12. Constipation Patient is a 31 yo with a h/o cervical cancer with L nephrostomy tube, admitted for pain control and UTI Condition: Stable IVF: NS 75ml/hr Diet: Regular GI Prophylaxis: Protonix VTE Prophylaxis: SCDs, Heparin TID Code: Full 1. Urinary tract infection, acute -Direct admission for severe vaginal and suprapubic pain, urinary retention, bilateral flank pain, recent symptomatic UTI without resolution of symptoms after antibiotics - Creatinine stable throughout admission - Renal ultrasound unremarkable 08/09 - Tamsulosin + Pyridium started, Olanzapine discontinued 08/10 - Urine culture >100,000 cfu/ml Escherichia coli; 100,000 cfu/ml Escherichia coli #2 - Continue Meropenem - 08/14 Nephrostomy exchanged - Adequate urine output overnight 2. Pain - Oxycodone 5/10 mg q4 PRN - Gabapentin 200mg BID, Ofirmev q12 PRN - Will d/c Dilaudid to transition for discharge - Well managed 3. History of chemotherapy - S/p 6 cycles of cisplatin in 2019, as well as radiation therapy - Cancer status: remission - Patient with chest port on right side, no signs of secondary infection 4. Anxiety - Ativan TID PRN - Consider psychology consult 5. Cervical cancer - Stage 3b SCC of cervix - S/p Chemoradiation, in remission - Recent CT 08/02/22 unremarkable for signs of cancer recurrence - Recent Pap smear (07/15) negative for cervical dysplasia, however positive for HPV, for colposcopy - Followed by Dr. Martin 6. Tobacco use 7. Nausea and vomiting - Phenergen rectal PRN, Zofran PRN 8. Nephrostomy status - Exchanged 08/14, good output 9. Port-A-Cath in place - No current signs of infection 10. DVT prophylaxis - SCDs, encouraged ambulation - Consider PT Dispo: continue inpatient management. will discuss with attending. Digitally Signed by ALANNA SCANLON DO on 08/15/2022 07:51 AM Digitally Signed by ALANNA SCANLON DO on 08/15/2022 08:02 AM [facility] [id number] Note Date of Service 08/15/2022 Chief Complaint Pain Subjective Patient seen and examined with Dr. Graves. Pain is better controlled this AM. No new complaints. Denies BM. General: Denies fever, chills, headaches CV/Resp: Denies chest pain, shortness of breath and dizziness GI/: Denies dysuria, diarrhea, constipation Ext: Denies leg pain, edema Objective Vitals and Measurements T: 36.6 C (Oral) TMIN: 36.6 C (Oral) TMAX: 37 C (Oral) HR: 94 RR: 16 BP: 101/71 SpO2: 98% Intake and Output 7AM Yesterday to 7AM Today Intake and Output (Last 24 hours) Intake Administration Information 600.00 Oral Intake 400.00 Output Urine Voided 750.00 Urostomy Output: 250.00 Stool Count 0.00 Total Summary Total Intake 1000.00 Total Output 1000.00 Fluid Balance 0.00 Physical Exam Gen: AAOx3. NAD. CV: RRR Resp: CTAB, no wheezes or rales. No increased work of breathing. No accessory muscles use. Converses easily. Abdom: Soft, nontender, nondistended. +BS [id number] Extrem: no edema, no erythema, nontender Weight Dosing Weight: 52.5 kg (08/08/22) Medications Medications (21) Active Scheduled: (9) docusate sodium 100 mg Capsule 100 mg 1 cap(s), Oral, BID gabapentin 100 mg Capsule 200 mg 2 cap(s), Oral, BID heparin 5,000 units/mL (1 mL) vial 5,000 unit(s) 1 mL, Subcutaneous, q8h LORAZEPam 1 mg Tablet 1 mg 1 tab(s), Oral, q8h meropenem 2 gram(s), IV Piggyback, q8h Nicoderm patch REMOVAL 1 EA, Miscellaneous, q24h nicotine 14 mg/24 hr ER patch 14 mg 1 patch(es), Transdermal, q24h phenazopyridine 100 mg tablet 100 mg 1 tab(s), Oral, TIDPC tamsulosin 0.4 mg Capsule 0.4 mg 1 cap(s), Oral, qDayPC Continuous: (1) NS (0.9% nacl) 1,000 mL 1,000 mL, Intravenous, 75 mL/hr PRN: (11) diphenhydramine 25 mg tablet 25 mg 1 tab(s), Oral, qHS famotidine 20 mg tablet 20 mg 1 tab(s), Oral, BID HYDROmorphone 0.5 mg/0.5 mL PF syringe 0.5 mg 0.5 mL, IV Push, q2h hydromorphone 1 mg/mL (1mL) INJ 1 mg 1 mL, IV Push, q2h melatonin 3 mg tablet 3 mg 1 tab(s), Oral, qHS ondansetron 2 mg/ 1 mL 2 mL INJ 4 mg 2 mL, IV Push, q4h oxycodone 5 mg tablet (immediate release) 5 mg 1 tab(s), Oral, q4h oxycodone 5 mg tablet (immediate release) 10 mg 2 tab(s), Oral, q4h pantoprazole 40 mg VIAL 40 mg, IV Push, qDay promethazine 25 mg Suppository 25 mg 1 supp, Rectal, BID promethazine 25 mg Suppository 25 mg 1 supp, Rectal, q6h Lab Results 08/15 05:52 WBC: 6.9 Hgb: 12.2 Hct: 35.9 Platelet: 382 Neutrophil %: 55.2 Glucose Level: 76 Sodium Level: 138 Potassium Level: 3.8 BUN: 5.0 L Creatinine Lvl (s): 0.80 08/14 05:25 WBC: 5.9 Hgb: 11.8 L Hct: 35.2 Platelet: 364 Neutrophil %: 47.7 L Glucose Level: 84 Sodium Level: 140 Potassium Level: 3.6 BUN: <5.0 L Creatinine Lvl (s): 0.86 Assessment/Plan 1. Complicated UTI (urinary tract infection) 2. History of chemotherapy 3. History of radiation therapy 4. Anxiety 5. Cervical cancer 6. Tobacco use 7. Nausea and vomiting 8. Nephrostomy status 9. Port-A-Cath in place 10. DVT prophylaxis 11. Premature menopause 12. Constipation Patient is a 31 yo with a h/o cervical cancer with L nephrostomy tube, admitted for pain control and UTI Condition: Stable IVF: NS 75ml/hr Diet: Regular GI Prophylaxis: Protonix VTE Prophylaxis: SCDs, Heparin TID Code: Full 1. Urinary tract infection, acute -Direct admission for severe vaginal and suprapubic pain, urinary retention, bilateral flank pain, recent symptomatic UTI without resolution of symptoms after antibiotics - Creatinine stable throughout admission - Renal ultrasound unremarkable 08/09 - Tamsulosin + Pyridium started, Olanzapine discontinued 08/10 - Urine culture >100,000 cfu/ml Escherichia coli; 100,000 cfu/ml Escherichia coli #2 - Continue Meropenem - 08/14 Nephrostomy exchanged - Adequate urine output overnight 2. Pain - Oxycodone 5/10 mg q4 PRN - Gabapentin 200mg BID, Ofirmev q12 PRN - Will d/c Dilaudid to transition for discharge - Well managed 3. History of chemotherapy - S/p 6 cycles of cisplatin in 2019, as well as radiation therapy - Cancer status: remission - Patient with chest port on right side, no signs of secondary infection 4. Anxiety - Ativan TID PRN - Consider psychology consult 5. Cervical cancer - Stage 3b SCC of cervix - S/p Chemoradiation, in remission - Recent CT 08/02/22 unremarkable for signs of cancer recurrence - Recent Pap smear (07/15) negative for cervical dysplasia, however positive for HPV, for colposcopy - Followed by Dr. Martin 6. Tobacco use 7. Nausea and vomiting - Phenergen rectal PRN, Zofran PRN 8. Nephrostomy status - Exchanged 08/14, good output 9. Port-A-Cath in place - No current signs of infection 10. DVT prophylaxis - SCDs, encouraged ambulation - Consider PT Dispo: continue inpatient management. will discuss with attending. Digitally Signed by ALANNA SCANLON DO on 08/15/2022 07:51 AM Digitally Signed by ALANNA SCANLON DO on 08/15/2022 08:02 AM [facility] [id number] Note Date of Service 08/15/2022 Chief Complaint Pain Subjective Patient seen and examined with Dr. Graves. Pain is better controlled this AM. No new complaints. Denies BM. General: Denies fever, chills, headaches CV/Resp: Denies chest pain, shortness of breath and dizziness GI/: Denies dysuria, diarrhea, constipation Ext: Denies leg pain, edema Objective Vitals and Measurements T: 36.6 C (Oral) TMIN: 36.6 C (Oral) TMAX: 37 C (Oral) HR: 94 RR: 16 BP: 101/71 SpO2: 98% Intake and Output 7AM Yesterday to 7AM Today Intake and Output (Last 24 hours) Intake Administration Information 600.00 Oral Intake 400.00 Output Urine Voided 750.00 Urostomy Output: 250.00 Stool Count 0.00 Total Summary Total Intake 1000.00 Total Output 1000.00 Fluid Balance 0.00 Physical Exam Gen: AAOx3. NAD. CV: RRR Resp: CTAB, no wheezes or rales. No increased work of breathing. No accessory muscles use. Converses easily. Abdom: Soft, nontender, nondistended. +BS [id number] Extrem: no edema, no erythema, nontender Weight Dosing Weight: 52.5 kg (08/08/22) Medications Medications (21) Active Scheduled: (9) docusate sodium 100 mg Capsule 100 mg 1 cap(s), Oral, BID gabapentin 100 mg Capsule 200 mg 2 cap(s), Oral, BID heparin 5,000 units/mL (1 mL) vial 5,000 unit(s) 1 mL, Subcutaneous, q8h LORAZEPam 1 mg Tablet 1 mg 1 tab(s), Oral, q8h meropenem 2 gram(s), IV Piggyback, q8h Nicoderm patch REMOVAL 1 EA, Miscellaneous, q24h nicotine 14 mg/24 hr ER patch 14 mg 1 patch(es), Transdermal, q24h phenazopyridine 100 mg tablet 100 mg 1 tab(s), Oral, TIDPC tamsulosin 0.4 mg Capsule 0.4 mg 1 cap(s), Oral, qDayPC Continuous: (1) NS (0.9% nacl) 1,000 mL 1,000 mL, Intravenous, 75 mL/hr PRN: (11) diphenhydramine 25 mg tablet 25 mg 1 tab(s), Oral, qHS famotidine 20 mg tablet 20 mg 1 tab(s), Oral, BID HYDROmorphone 0.5 mg/0.5 mL PF syringe 0.5 mg 0.5 mL, IV Push, q2h hydromorphone 1 mg/mL (1mL) INJ 1 mg 1 mL, IV Push, q2h melatonin 3 mg tablet 3 mg 1 tab(s), Oral, qHS ondansetron 2 mg/ 1 mL 2 mL INJ 4 mg 2 mL, IV Push, q4h oxycodone 5 mg tablet (immediate release) 5 mg 1 tab(s), Oral, q4h oxycodone 5 mg tablet (immediate release) 10 mg 2 tab(s), Oral, q4h pantoprazole 40 mg VIAL 40 mg, IV Push, qDay promethazine 25 mg Suppository 25 mg 1 supp, Rectal, BID promethazine 25 mg Suppository 25 mg 1 supp, Rectal, q6h Lab Results 08/15 05:52 WBC: 6.9 Hgb: 12.2 Hct: 35.9 Platelet: 382 Neutrophil %: 55.2 Glucose Level: 76 Sodium Level: 138 Potassium Level: 3.8 BUN: 5.0 L Creatinine Lvl (s): 0.80 08/14 05:25 WBC: 5.9 Hgb: 11.8 L Hct: 35.2 Platelet: 364 Neutrophil %: 47.7 L Glucose Level: 84 Sodium Level: 140 Potassium Level: 3.6 BUN: <5.0 L Creatinine Lvl (s): 0.86 Assessment/Plan 1. Complicated UTI (urinary tract infection) 2. History of chemotherapy 3. History of radiation therapy 4. Anxiety 5. Cervical cancer 6. Tobacco use 7. Nausea and vomiting 8. Nephrostomy status 9. Port-A-Cath in place 10. DVT prophylaxis 11. Premature menopause 12. Constipation Patient is a 31 yo with a h/o cervical cancer with L nephrostomy tube, admitted for pain control and UTI Condition: Stable IVF: NS 75ml/hr Diet: Regular GI Prophylaxis: Protonix VTE Prophylaxis: SCDs, Heparin TID Code: Full 1. Urinary tract infection, acute -Direct admission for severe vaginal and suprapubic pain, urinary retention, bilateral flank pain, recent symptomatic UTI without resolution of symptoms after antibiotics - Creatinine stable throughout admission - Renal ultrasound unremarkable 08/09 - Tamsulosin + Pyridium started, Olanzapine discontinued 08/10 - Urine culture >100,000 cfu/ml Escherichia coli; 100,000 cfu/ml Escherichia coli #2 - Continue Meropenem - 08/14 Nephrostomy exchanged - Adequate urine output overnight 2. Pain - Oxycodone 5/10 mg q4 PRN - Gabapentin 200mg BID, Ofirmev q12 PRN - Will d/c Dilaudid to transition for discharge - Well managed 3. History of chemotherapy - S/p 6 cycles of cisplatin in 2019, as well as radiation therapy - Cancer status: remission - Patient with chest port on right side, no signs of secondary infection 4. Anxiety - Ativan TID PRN - Consider psychology consult 5. Cervical cancer - Stage 3b SCC of cervix - S/p Chemoradiation, in remission - Recent CT 08/02/22 unremarkable for signs of cancer recurrence - Recent Pap smear (07/15) negative for cervical dysplasia, however positive for HPV, for colposcopy - Followed by Dr. Martin 6. Tobacco use 7. Nausea and vomiting - Phenergen rectal PRN, Zofran PRN 8. Nephrostomy status - Exchanged 08/14, good output 9. Port-A-Cath in place - No current signs of infection 10. DVT prophylaxis - SCDs, encouraged ambulation - Consider PT Dispo: continue inpatient management. will discuss with attending. Digitally Signed by ALANNA SCANLON DO on 08/15/2022 07:51 AM Digitally Signed by ALANNA SCANLON DO on 08/15/2022 08:02 AM [id number] Note Date of Service 08/15/2022 Chief Complaint Pain Subjective Patient seen and examined with Dr. Graves. Pain is better controlled this AM. No new complaints. Denies BM. General: Denies fever, chills, headaches CV/Resp: Denies chest pain, shortness of breath and dizziness GI/: Denies dysuria, diarrhea, constipation Ext: Denies leg pain, edema Objective Vitals and Measurements T: 36.6 C (Oral) TMIN: 36.6 C (Oral) TMAX: 37 C (Oral) HR: 94 RR: 16 BP: 101/71 SpO2: 98% Intake and Output 7AM Yesterday to 7AM Today Intake and Output (Last 24 hours) Intake Administration Information 600.00 Oral Intake 400.00 Output Urine Voided 750.00 Urostomy Output: 250.00 Stool Count 0.00 Total Summary Total Intake 1000.00 Total Output 1000.00 Fluid Balance 0.00 Physical Exam Gen: AAOx3. NAD. CV: RRR Resp: CTAB, no wheezes or rales. No increased work of breathing. No accessory muscles use. Converses easily. Abdom: Soft, nontender, nondistended. +BS [id number] Extrem: no edema, no erythema, nontender Weight Dosing Weight: 52.5 kg (08/08/22) Medications Medications (21) Active Scheduled: (9) docusate sodium 100 mg Capsule 100 mg 1 cap(s), Oral, BID gabapentin 100 mg Capsule 200 mg 2 cap(s), Oral, BID heparin 5,000 units/mL (1 mL) vial 5,000 unit(s) 1 mL, Subcutaneous, q8h LORAZEPam 1 mg Tablet 1 mg 1 tab(s), Oral, q8h meropenem 2 gram(s), IV Piggyback, q8h Nicoderm patch REMOVAL 1 EA, Miscellaneous, q24h nicotine 14 mg/24 hr ER patch 14 mg 1 patch(es), Transdermal, q24h phenazopyridine 100 mg tablet 100 mg 1 tab(s), Oral, TIDPC tamsulosin 0.4 mg Capsule 0.4 mg 1 cap(s), Oral, qDayPC Continuous: (1) NS (0.9% nacl) 1,000 mL 1,000 mL, Intravenous, 75 mL/hr PRN: (11) diphenhydramine 25 mg tablet 25 mg 1 tab(s), Oral, qHS famotidine 20 mg tablet 20 mg 1 tab(s), Oral, BID HYDROmorphone 0.5 mg/0.5 mL PF syringe 0.5 mg 0.5 mL, IV Push, q2h hydromorphone 1 mg/mL (1mL) INJ 1 mg 1 mL, IV Push, q2h melatonin 3 mg tablet 3 mg 1 tab(s), Oral, qHS ondansetron 2 mg/ 1 mL 2 mL INJ 4 mg 2 mL, IV Push, q4h oxycodone 5 mg tablet (immediate release) 5 mg 1 tab(s), Oral, q4h oxycodone 5 mg tablet (immediate release) 10 mg 2 tab(s), Oral, q4h pantoprazole 40 mg VIAL 40 mg, IV Push, qDay promethazine 25 mg Suppository 25 mg 1 supp, Rectal, BID promethazine 25 mg Suppository 25 mg 1 supp, Rectal, q6h Lab Results 08/15 05:52 WBC: 6.9 Hgb: 12.2 Hct: 35.9 Platelet: 382 Neutrophil %: 55.2 Glucose Level: 76 Sodium Level: 138 Potassium Level: 3.8 BUN: 5.0 L Creatinine Lvl (s): 0.80 08/14 05:25 WBC: 5.9 Hgb: 11.8 L Hct: 35.2 Platelet: 364 Neutrophil %: 47.7 L Glucose Level: 84 Sodium Level: 140 Potassium Level: 3.6 BUN: <5.0 L Creatinine Lvl (s): 0.86 Assessment/Plan 1. Complicated UTI (urinary tract infection) 2. History of chemotherapy 3. History of radiation therapy 4. Anxiety 5. Cervical cancer 6. Tobacco use 7. Nausea and vomiting 8. Nephrostomy status 9. Port-A-Cath in place 10. DVT prophylaxis 11. Premature menopause 12. Constipation Patient is a 31 yo with a h/o cervical cancer with L nephrostomy tube, admitted for pain control and UTI Condition: Stable IVF: NS 75ml/hr Diet: Regular GI Prophylaxis: Protonix VTE Prophylaxis: SCDs, Heparin TID Code: Full 1. Urinary tract infection, acute -Direct admission for severe vaginal and suprapubic pain, urinary retention, bilateral flank pain, recent symptomatic UTI without resolution of symptoms after antibiotics - Creatinine stable throughout admission - Renal ultrasound unremarkable 08/09 - Tamsulosin + Pyridium started, Olanzapine discontinued 08/10 - Urine culture >100,000 cfu/ml Escherichia coli; 100,000 cfu/ml Escherichia coli #2 - Continue Meropenem - 08/14 Nephrostomy exchanged - Adequate urine output overnight 2. Pain - Oxycodone 5/10 mg q4 PRN - Gabapentin 200mg BID, Ofirmev q12 PRN - Will d/c Dilaudid to transition for discharge - Well managed 3. History of chemotherapy - S/p 6 cycles of cisplatin in 2019, as well as radiation therapy - Cancer status: remission - Patient with chest port on right side, no signs of secondary infection 4. Anxiety - Ativan TID PRN - Consider psychology consult 5. Cervical cancer - Stage 3b SCC of cervix - S/p Chemoradiation, in remission - Recent CT 08/02/22 unremarkable for signs of cancer recurrence - Recent Pap smear (07/15) negative for cervical dysplasia, however positive for HPV, for colposcopy - Followed by Dr. Martin 6. Tobacco use 7. Nausea and vomiting - Phenergen rectal PRN, Zofran PRN 8. Nephrostomy status - Exchanged 08/14, good output 9. Port-A-Cath in place - No current signs of infection 10. DVT prophylaxis - SCDs, encouraged ambulation - Consider PT Dispo: continue inpatient management. will discuss with attending. Digitally Signed by ALANNA SCANLON DO on 08/15/2022 07:51 AM Digitally Signed by ALANNA SCANLON DO on 08/15/2022 08:02 AM [facility] [id number] Nurse Progress note Patient refused colace. Stated It's been giving heartburn for the last 3 days. Digitally Signed by Cecilia English LPN on 08/14/2022 08:22 PM [facility] [id number] Nurse Progress note Patient refused colace. Stated It's been giving heartburn for the last 3 days. Digitally Signed by Cecilia English LPN on 08/14/2022 08:22 PM [facility] [id number] Note Date of Service 08/14/2022 Chief Complaint vaginal/urethral pain, nausea, constipation Subjective Patient seen and examined with Dr. Graves. She reports that pain is improved when she takes her medications. States that she is always nauseous. She has only been getting her Ativan once per day and she thinks that would help to have more frequently, however, she has been NPO for procedure. +Flatus. +Urination. General: Denies fever, chills, headaches CV/Resp: Denies chest pain, shortness of breath and dizziness GI/: Admits dysuria and vaginal pain Ext: Denies leg pain, edema Objective Vitals and Measurements T: 36.9 C (Oral) TMIN: 36.5 C (Oral) TMAX: 36.9 C (Oral) HR: 84 RR: 16 BP: 106/76 SpO2: 96% Intake and Output 7AM Yesterday to 7AM Today Intake and Output (Last 24 hours) Intake Output Urine Voided 250.00 Urostomy Output: 500.00 Total Summary Total Intake 0.00 Total Output 750.00 Fluid Balance -750.00 Physical Exam Gen: AAOx3. NAD. Appears tired with darkening under eyes. CV: RRR Resp: CTAB, no wheezes or rales. No increased work of breathing. No accessory muscles use. Converses easily. Abdom: Soft, nontender, nondistended. +BS [id number]. L nephrostomy fluid yellow tinged. Extrem: no edema, no erythema, nontender Weight Dosing Weight: 52.5 kg (08/08/22) Medications Medications (18) Active Scheduled: (6) docusate sodium 100 mg Capsule 100 mg 1 cap(s), Oral, BID meropenem 2 gram(s), IV Piggyback, q8h Nicoderm patch REMOVAL 1 EA, Miscellaneous, q24h nicotine 14 mg/24 hr ER patch 14 mg 1 patch(es), Transdermal, q24h phenazopyridine 100 mg tablet 100 mg 1 tab(s), Oral, TIDPC tamsulosin 0.4 mg Capsule 0.4 mg 1 cap(s), Oral, qDayPC Continuous: (1) NS (0.9% nacl) 1,000 mL 1,000 mL, Intravenous, 75 mL/hr PRN: (11) diphenhydramine 25 mg tablet 25 mg 1 tab(s), Oral, qHS famotidine 20 mg tablet 20 mg 1 tab(s), Oral, BID HYDROmorphone 0.5 mg/0.5 mL PF syringe 0.5 mg 0.5 mL, IV Push, q2h hydromorphone 1 mg/mL (1mL) INJ 1 mg 1 mL, IV Push, q2h LORAZEPam 1 mg Tablet 1 mg 1 tab(s), Oral, TID melatonin 3 mg tablet 3 mg 1 tab(s), Oral, qHS ondansetron 2 mg/ 1 mL 2 mL INJ 4 mg 2 mL, IV Push, q4h oxycodone 5 mg tablet (immediate release) 5 mg 1 tab(s), Oral, q4h oxycodone 5 mg tablet (immediate release) 10 mg 2 tab(s), Oral, q4h pantoprazole 40 mg VIAL 40 mg, IV Push, qDay promethazine 25 mg Suppository 25 mg 1 supp, Rectal, BID Lab Results 08/14 05:25 WBC: 5.9 Hgb: 11.8 L Hct: 35.2 Platelet: 364 Neutrophil %: 47.7 L Glucose Level: 84 Sodium Level: 140 Potassium Level: 3.6 BUN: <5.0 L Creatinine Lvl (s): 0.86 08/13 04:12 WBC: 6.5 Hgb: 12.0 Hct: 35.6 Platelet: 357 Neutrophil %: 57.9 Glucose Level: 85 Sodium Level: 141 Potassium Level: 3.6 BUN: <5.0 L Creatinine Lvl (s): 0.87 Imaging Results and Diagnostics XR Abdomen 2 Views w/ Decub/Erect Result Date: August 12, 2022 Verified By: BEAR LORA, CLOTILDE Choe CLINICAL STATEMENT: IMPRESSION: Nonobstructive bowel gas pattern. Small to moderate stool burden. I have personally reviewed the images of this examination and agree with the resident's findings and interpretation. US Renal Result Date: August 09, 2022 Verified By: HERNANDEZ RODRIGEZ MD CLINICAL STATEMENT: IMPRESSION: Normal appearing right kidney, without evidence of obstruction. Partially visualized left percutaneous nephroureteral catheter. Otherwisenormal left kidney. Preliminary Report was Dictated by a Resident Assessment/Plan 1. Complicated UTI (urinary tract infection) 2. History of chemotherapy 3. History of radiation therapy 4. Anxiety 5. Cervical cancer 6. Tobacco use 7. Nausea and vomiting 8. Nephrostomy status 9. Port-A-Cath in place 10. DVT prophylaxis 11. Premature menopause 12. Constipation Patient is a 31 yo with a h/o cervical cancer with L nephrostomy tube, admitted for pain control and UTI Condition: Stable IVF: NS 75ml/hr Diet: Regular, NPO for neph tube exchange today GI Prophylaxis: Protonix VTE Prophylaxis: SCDs, Heparin TID Code: Full 1. Urinary tract infection, acute -Direct admission for severe vaginal and suprapubic pain, urinary retention, bilateral flank pain, recent symptomatic UTI without resolution of symptoms after antibiotics -Creatinine on admission was 0.86, stable at 0.8 on 08/10 - Strict I's and O's - Renal ultrasound unremarkable 08/09 - Tamsulosin + Pyridium started and Olanzapine discontinued 08/10 - UA suggestive of UTI - H/o ESBL resistant to Cipro, patient currently on Meropenem. - Urine culture >100,000 cfu/ml Escherichia coli; 100,000 cfu/ml Escherichia coli #2; ANA LILIA to follow - Patient with left nephrostomy tube. Had 250cc voided urine output and 500cc nephrostomy output over past 8 hours - Nephrostomy exchange pending IR availability 2. Pain - Pain improved with current pain regimen 3. History of chemotherapy - S/p 6 cycles of cisplatin in 2019, as well as radiation therapy - Patient currently in remission - Patient with chest port on right side, no signs of secondary infection 4. Anxiety - Ativan TID PRN - States that she has only been taking once per day and is concerned about taking with NPO status - Encouraged her routine use of Ativan for comfort, sips okay to take Ativan while NPO 5. Cervical cancer - Stage 3b SCC of cervix - S/p Chemoradiation, in remission - Recent CT 08/02/22 unremarkable for signs of cancer recurrence - Recent Pap smear (07/15) negative for cervical dysplasia, however positive for HPV, for colposcopywith Dr. Martin - Port-A-Cath in place 6. Tobacco use 7. Nausea and vomiting - Daily nausea - No vomiting overnight - Phenergan suppository, zofran PRN 8. Nephrostomy status - No current signs of external infection/malposition - Patient was scheduled for neph tube exchange on 08/15, however will exchange while in patient, attempt for today pending IR availability 9. Port-A-Cath in place - No current signs of infection 10. DVT prophylaxis - SCDs, encouraged ambulation - Consider PT Dispo: continue inpatient management. NPO for Neph Tube exchange pending IR. will discuss with attending. Digitally Signed by ALANNA SCANLON DO on 08/14/2022 06:50 AM [facility] [id number] Note IR Procedure Record Summary Primary Physician: VIRAL MANUEL MD Finalized Date/Time: 08/14/22 14:10:33 Pt. Name: LALY NAVAS/Sex: 1990 Female Med Rec #: [id number] Physician: FLIP MARTIN MD Financial #: [id number] Pt. Type: I Room/Bed: [facility]/A Admit/Disch: 08/08/22 16:43:27 - Institution: Allergies identified in patient's electronic medical record at time of printing on 08/14/22 Entry 1 Entry 2 Substance codeine penicillin Reaction Type Allergy Allergy Last Modified By: Cesar Hmyan RN, JAMAL Caceres 02/03/21 04/12/20 15:04:17 17:13:24 Case Attendance- IR Entry 1 Entry 2 Entry 3 Case Attendee VIRAL MANUEL MD [facility] JAMAL Andres Role Performed Primary Surgeon Scrub Technologist Procedure Nurse Details Time In 08/14/22 12:20:00 08/14/22 12:20:00 08/14/22 12:20:00 Time Out 08/14/22 13:00:00 08/14/22 13:00:00 08/14/22 12:52:00 Procedure/Preference IR Neph Cath-Neph IR Neph Cath-Neph IR Neph Cath-Neph Card Ureter W/Guide Left SN Ureter W/Guide Left SN Ureter W/Guide Left SN Last Modified By: JAMAL Cuellar RN Melanie L Lee, RN Melanie L 08/14/22 14:10:26 08/14/22 14:10:26 08/14/22 14:10:26 Entry 4 Case Attendee Lexi Marcano RN Role Performed Procedure Nurse Details Time In 08/14/22 12:48:00 Time Out 08/14/22 13:00:00 Procedure/Preference IR Neph Cath-Neph Card Ureter W/Guide Left SN Last Modified By: JAMAL Cuellar 08/14/22 14:10:26 Radiology Procedures- IR Entry 1 Procedure/Preference IR Neph Cath-Neph Actual Procedure nephrostomy tube Card Ureter W/Guide Left SN exchange Primary Procedure Yes Primary Surgeon VIRAL MANUEL MD Anesthesia/Sedation Local, IV Sedation Type Additional Procedure Times Start 08/14/22 12:45:00 Stop 08/14/22 12:53:00 Specialty Service SN Radiology Procedure EBL 0 mL Last Modified By: JAMAL Cuellar 08/14/22 14:10:22 Radiology Procedure Details - IR Entry 1 Radiology Sedation Case Times Sedation Start Time 08/14/22 12:46:00 Sedation Stop Time 08/14/22 12:53:00 Sedation Total Time 7 min Radiology - Fluid/Drainage Radiology Contrast Contrast Used? Yes Dose 10 mL Medication OMNIPAQUE 350 50ML / Y-540 Radiology Flouroscopy Fluoroscopy Used? Yes Fluoro Dose (mGy) 7.50 Fluoro Time 1.1 min Radiology Local Local Used? No Radiology Procedure Site Site/Location l flank Site Condition No complications Dressing Type Bioclusive 4 X 5, Gauze sponge 4 X 4 Last Modified By: Lexi Marcano RN 08/14/22 12:56:29 General Case Data - IR Entry 1 Case Information Room IR 17 Case Level IR Level 2 Wound Class None Specialty SN Radiology Procedure ASA Class None Diagnosis Preop Diagnosis abdominal pain, Postop Same As Preop Yes cervical cancer Postop Diagnosis abdominal pain, cervical cancer Last Modified By: Lexi Marcano RN 08/14/22 12:54:19 Medication Administration- IR Entry 1 Entry 2 Medication versed fentanyl Time Administered 08/14/22 12:46:00 08/14/22 12:46:00 Route of Admin IV Push IV Push Dose 1mg 50mcg Volume VORB * *Verbal Order Read Back (VORB) is required for NON- PHYSICIAN administration of medications. Administered by No No Physician? Administered by: JAMAL Cuellar RN Melanie L Verbal Order Read VIRAL MANUEL MD, JAMES MD Back from: Last Modified By: Lexi Marcano RN, Caitlin C RN 08/14/22 12:52:50 08/14/22 12:52:50 Procedure Case Times- IR Entry 1 Patient In Procedure Patient In OR 08/14/22 12:20:00 Patient Out of OR 08/14/22 13:00:00 Procedure Start/Stop Procedure Start Time 08/14/22 12:45:00 Procedure Stop Time 08/14/22 12:53:00 Last Modified By: Lexi Marcano RN 08/14/22 12:56:36 Immediate Post Procedure Note - IR Entry 1 Immediate Post Yes Procedure Note displayed for Physician to review Closure Technique Closure Technique Other than Primary Last Modified By: Lexi Marcano RN 08/14/22 12:53:22 Immediate Post Procedure Note - IR Signed By: VIRAL MANUEL MD 08/14/22 12:53 Allergy Information- IR Entry 1 Allergies Reviewed? Yes Allergies Reviewed Medical Record With Last Modified By: JAMAL Cuellar 08/14/22 12:48:05 Radiology Protocols/Time Out- IR Entry 1 Preprocedure Clinician Verifies Correct patient ID When Clinically Confirmation of correct using name & date Indicated side(s) and site(s), or MRN, Accurate Correct diagnostic and procedure, complete radiology tests Informed Consent, H & P available, Required update immediately blood products, prior to procedure, if implants, devices applicable and/or special equipment available OR/Procedure Room/Bedside Time 08/14/22 12:45:00 Clinician Verifies Correct patient identity including EMR & records using name and date or medical record number, Accurate procedure consent form, Correct patient position, Necessary equipment is available, Anticipated non-routine events with surgical team (case duration, estimated blood loss, patient specific concerns)., Parada patient factors for recovery and management identified with surgical team. When Applicable Confirmation correct Team Members VIRAL MANUEL MD, side and site marked, Present for Time Out Sandi Systems Integrator Devika Relevant images and A, JAMAL Cuellar results are properly labeled and appropriately displayed, Alcohol based prep dry, Double verification of sterility indicators complete Instrument Sterility Team Members VIRAL MANUEL MD, Verifying Sterility [employer] Integrator Devika A Procedure IR Neph Cath-Neph Ureter W/Guide Left SN Last Modified By: JAMAL Cuellar 08/14/22 14:10:26 Skin Prep- IR Entry 1 Procedure IR Neph Cath-Neph Ureter W/Guide Left SN Skin Prep Prep Area Flank Side Left By [employer] Integrator Devika A Prep Agents Betadine Solution Hair Removal Method N/A Last Modified By: JAMAL Cuellar 08/14/22 14:10:27 Patient Positioning- IR Entry 1 Procedure IR Neph Cath-Neph Body Position OP Prone Ureter W/Guide Left SN Feet Uncrossed? Yes Pressure Points Yes Checked Last Modified By: JAMAL Cuellar 08/14/22 14:10:27 Radiology Procedure Plan - IR Entry 1 Radiology - Nursing Care Plan Outcome Statement The patient Outcome Statement The patient receives demonstrates knowledge Cont. appropriate of the expected medication(s), safely responses to the administered during the operative/invasive perioperative/invasive procedure., The period., The patient is patient's value system, free from signs and lifestyle, ethnicity, symptoms of injury and culture are caused by extraneous considered, respected, objects (equipment, and incorporated in the instrumentation, perioperative plan of sponges, or sharps)., care., The patient is The patient is free free from signs and from signs and symptoms symptoms of infection., of electrical injury. The patient is free from signs and symptoms of injury related to positioning. Radiology - Action Plan Outcomes Met? Yes Mottler Operator Lexi Marcano RN Completing Procedure Plan Last Modified By: Lexi Marcano RN 08/14/22 12:53:32 Case Comments Finalized By: JAMAL Cuellar Document Signatures Signed By: Sam Junior Devika A 08/14/22 13:21 Lexi Marcano RN 08/14/22 12:56 JAMAL Cuellar 08/14/22 14:10 [facility] [id number] Note Date of Service 08/14/2022 Chief Complaint vaginal/urethral pain, nausea, constipation Subjective Patient seen and examined with Dr. Graves. She reports that pain is improved when she takes her medications. States that she is always nauseous. She has only been getting her Ativan once per day and she thinks that would help to have more frequently, however, she has been NPO for procedure. +Flatus. +Urination. General: Denies fever, chills, headaches CV/Resp: Denies chest pain, shortness of breath and dizziness GI/: Admits dysuria and vaginal pain Ext: Denies leg pain, edema Objective Vitals and Measurements T: 36.9 C (Oral) TMIN: 36.5 C (Oral) TMAX: 36.9 C (Oral) HR: 84 RR: 16 BP: 106/76 SpO2: 96% Intake and Output 7AM Yesterday to 7AM Today Intake and Output (Last 24 hours) Intake Output Urine Voided 250.00 Urostomy Output: 500.00 Total Summary Total Intake 0.00 Total Output 750.00 Fluid Balance -750.00 Physical Exam Gen: AAOx3. NAD. Appears tired with darkening under eyes. CV: RRR Resp: CTAB, no wheezes or rales. No increased work of breathing. No accessory muscles use. Converses easily. Abdom: Soft, nontender, nondistended. +BS [id number]. L nephrostomy fluid yellow tinged. Extrem: no edema, no erythema, nontender Weight Dosing Weight: 52.5 kg (08/08/22) Medications Medications (18) Active Scheduled: (6) docusate sodium 100 mg Capsule 100 mg 1 cap(s), Oral, BID meropenem 2 gram(s), IV Piggyback, q8h Nicoderm patch REMOVAL 1 EA, Miscellaneous, q24h nicotine 14 mg/24 hr ER patch 14 mg 1 patch(es), Transdermal, q24h phenazopyridine 100 mg tablet 100 mg 1 tab(s), Oral, TIDPC tamsulosin 0.4 mg Capsule 0.4 mg 1 cap(s), Oral, qDayPC Continuous: (1) NS (0.9% nacl) 1,000 mL 1,000 mL, Intravenous, 75 mL/hr PRN: (11) diphenhydramine 25 mg tablet 25 mg 1 tab(s), Oral, qHS famotidine 20 mg tablet 20 mg 1 tab(s), Oral, BID HYDROmorphone 0.5 mg/0.5 mL PF syringe 0.5 mg 0.5 mL, IV Push, q2h hydromorphone 1 mg/mL (1mL) INJ 1 mg 1 mL, IV Push, q2h LORAZEPam 1 mg Tablet 1 mg 1 tab(s), Oral, TID melatonin 3 mg tablet 3 mg 1 tab(s), Oral, qHS ondansetron 2 mg/ 1 mL 2 mL INJ 4 mg 2 mL, IV Push, q4h oxycodone 5 mg tablet (immediate release) 5 mg 1 tab(s), Oral, q4h oxycodone 5 mg tablet (immediate release) 10 mg 2 tab(s), Oral, q4h pantoprazole 40 mg VIAL 40 mg, IV Push, qDay promethazine 25 mg Suppository 25 mg 1 supp, Rectal, BID Lab Results 08/14 05:25 WBC: 5.9 Hgb: 11.8 L Hct: 35.2 Platelet: 364 Neutrophil %: 47.7 L Glucose Level: 84 Sodium Level: 140 Potassium Level: 3.6 BUN: <5.0 L Creatinine Lvl (s): 0.86 08/13 04:12 WBC: 6.5 Hgb: 12.0 Hct: 35.6 Platelet: 357 Neutrophil %: 57.9 Glucose Level: 85 Sodium Level: 141 Potassium Level: 3.6 BUN: <5.0 L Creatinine Lvl (s): 0.87 Imaging Results and Diagnostics XR Abdomen 2 Views w/ Decub/Erect Result Date: August 12, 2022 Verified By: CLOTILDE ARCHER MD CLINICAL STATEMENT: IMPRESSION: Nonobstructive bowel gas pattern. Small to moderate stool burden. I have personally reviewed the images of this examination and agree with the resident's findings and interpretation. US Renal Result Date: August 09, 2022 Verified By: HERNANDEZ RODRIGEZ MD CLINICAL STATEMENT: IMPRESSION: Normal appearing right kidney, without evidence of obstruction. Partially visualized left percutaneous nephroureteral catheter. Otherwisenormal left kidney. Preliminary Report was Dictated by a Resident Assessment/Plan 1. Complicated UTI (urinary tract infection) 2. History of chemotherapy 3. History of radiation therapy 4. Anxiety 5. Cervical cancer 6. Tobacco use 7. Nausea and vomiting 8. Nephrostomy status 9. Port-A-Cath in place 10. DVT prophylaxis 11. Premature menopause 12. Constipation Patient is a 31 yo with a h/o cervical cancer with L nephrostomy tube, admitted for pain control and UTI Condition: Stable IVF: NS 75ml/hr Diet: Regular, NPO for neph tube exchange today GI Prophylaxis: Protonix VTE Prophylaxis: SCDs, Heparin TID Code: Full 1. Urinary tract infection, acute -Direct admission for severe vaginal and suprapubic pain, urinary retention, bilateral flank pain, recent symptomatic UTI without resolution of symptoms after antibiotics -Creatinine on admission was 0.86, stable at 0.8 on 08/10 - Strict I's and O's - Renal ultrasound unremarkable 08/09 - Tamsulosin + Pyridium started and Olanzapine discontinued 08/10 - UA suggestive of UTI - H/o ESBL resistant to Cipro, patient currently on Meropenem. - Urine culture >100,000 cfu/ml Escherichia coli; 100,000 cfu/ml Escherichia coli #2; ANA LILIA to follow - Patient with left nephrostomy tube. Had 250cc voided urine output and 500cc nephrostomy output over past 8 hours - Nephrostomy exchange pending IR availability 2. Pain - Pain improved with current pain regimen 3. History of chemotherapy - S/p 6 cycles of cisplatin in 2019, as well as radiation therapy - Patient currently in remission - Patient with chest port on right side, no signs of secondary infection 4. Anxiety - Ativan TID PRN - States that she has only been taking once per day and is concerned about taking with NPO status - Encouraged her routine use of Ativan for comfort, sips okay to take Ativan while NPO 5. Cervical cancer - Stage 3b SCC of cervix - S/p Chemoradiation, in remission - Recent CT 08/02/22 unremarkable for signs of cancer recurrence - Recent Pap smear (07/15) negative for cervical dysplasia, however positive for HPV, for colposcopywith Dr. Martin - Port-A-Cath in place 6. Tobacco use 7. Nausea and vomiting - Daily nausea - No vomiting overnight - Phenergan suppository, zofran PRN 8. Nephrostomy status - No current signs of external infection/malposition - Patient was scheduled for neph tube exchange on 08/15, however will exchange while in patient, attempt for today pending IR availability 9. Port-A-Cath in place - No current signs of infection 10. DVT prophylaxis - SCDs, encouraged ambulation - Consider PT Dispo: continue inpatient management. NPO for Neph Tube exchange pending IR. will discuss with attending. Digitally Signed by ALANNA SCANLON DO on 08/14/2022 06:50 AM [id number] Note Date of Service 08/14/2022 Chief Complaint vaginal/urethral pain, nausea, constipation Subjective Patient seen and examined with Dr. Graves. She reports that pain is improved when she takes her medications. States that she is always nauseous. She has only been getting her Ativan once per day and she thinks that would help to have more frequently, however, she has been NPO for procedure. +Flatus. +Urination. General: Denies fever, chills, headaches CV/Resp: Denies chest pain, shortness of breath and dizziness GI/: Admits dysuria and vaginal pain Ext: Denies leg pain, edema Objective Vitals and Measurements T: 36.9 C (Oral) TMIN: 36.5 C (Oral) TMAX: 36.9 C (Oral) HR: 84 RR: 16 BP: 106/76 SpO2: 96% Intake and Output 7AM Yesterday to 7AM Today Intake and Output (Last 24 hours) Intake Output Urine Voided 250.00 Urostomy Output: 500.00 Total Summary Total Intake 0.00 Total Output 750.00 Fluid Balance -750.00 Physical Exam Gen: AAOx3. NAD. Appears tired with darkening under eyes. CV: RRR Resp: CTAB, no wheezes or rales. No increased work of breathing. No accessory muscles use. Converses easily. Abdom: Soft, nontender, nondistended. +BS [id number]. L nephrostomy fluid yellow tinged. Extrem: no edema, no erythema, nontender Weight Dosing Weight: 52.5 kg (08/08/22) Medications Medications (18) Active Scheduled: (6) docusate sodium 100 mg Capsule 100 mg 1 cap(s), Oral, BID meropenem 2 gram(s), IV Piggyback, q8h Nicoderm patch REMOVAL 1 EA, Miscellaneous, q24h nicotine 14 mg/24 hr ER patch 14 mg 1 patch(es), Transdermal, q24h phenazopyridine 100 mg tablet 100 mg 1 tab(s), Oral, TIDPC tamsulosin 0.4 mg Capsule 0.4 mg 1 cap(s), Oral, qDayPC Continuous: (1) NS (0.9% nacl) 1,000 mL 1,000 mL, Intravenous, 75 mL/hr PRN: (11) diphenhydramine 25 mg tablet 25 mg 1 tab(s), Oral, qHS famotidine 20 mg tablet 20 mg 1 tab(s), Oral, BID HYDROmorphone 0.5 mg/0.5 mL PF syringe 0.5 mg 0.5 mL, IV Push, q2h hydromorphone 1 mg/mL (1mL) INJ 1 mg 1 mL, IV Push, q2h LORAZEPam 1 mg Tablet 1 mg 1 tab(s), Oral, TID melatonin 3 mg tablet 3 mg 1 tab(s), Oral, qHS ondansetron 2 mg/ 1 mL 2 mL INJ 4 mg 2 mL, IV Push, q4h oxycodone 5 mg tablet (immediate release) 5 mg 1 tab(s), Oral, q4h oxycodone 5 mg tablet (immediate release) 10 mg 2 tab(s), Oral, q4h pantoprazole 40 mg VIAL 40 mg, IV Push, qDay promethazine 25 mg Suppository 25 mg 1 supp, Rectal, BID Lab Results 08/14 05:25 WBC: 5.9 Hgb: 11.8 L Hct: 35.2 Platelet: 364 Neutrophil %: 47.7 L Glucose Level: 84 Sodium Level: 140 Potassium Level: 3.6 BUN: <5.0 L Creatinine Lvl (s): 0.86 08/13 04:12 WBC: 6.5 Hgb: 12.0 Hct: 35.6 Platelet: 357 Neutrophil %: 57.9 Glucose Level: 85 Sodium Level: 141 Potassium Level: 3.6 BUN: <5.0 L Creatinine Lvl (s): 0.87 Imaging Results and Diagnostics XR Abdomen 2 Views w/ Decub/Erect Result Date: August 12, 2022 Verified By: CLOTILDE ARCHER MD CLINICAL STATEMENT: IMPRESSION: Nonobstructive bowel gas pattern. Small to moderate stool burden. I have personally reviewed the images of this examination and agree with the resident's findings and interpretation. US Renal Result Date: August 09, 2022 Verified By: HERNANDEZ RODRIGEZ MD CLINICAL STATEMENT: IMPRESSION: Normal appearing right kidney, without evidence of obstruction. Partially visualized left percutaneous nephroureteral catheter. Otherwisenormal left kidney. Preliminary Report was Dictated by a Resident Assessment/Plan 1. Complicated UTI (urinary tract infection) 2. History of chemotherapy 3. History of radiation therapy 4. Anxiety 5. Cervical cancer 6. Tobacco use 7. Nausea and vomiting 8. Nephrostomy status 9. Port-A-Cath in place 10. DVT prophylaxis 11. Premature menopause 12. Constipation Patient is a 31 yo with a h/o cervical cancer with L nephrostomy tube, admitted for pain control and UTI Condition: Stable IVF: NS 75ml/hr Diet: Regular, NPO for neph tube exchange today GI Prophylaxis: Protonix VTE Prophylaxis: SCDs, Heparin TID Code: Full 1. Urinary tract infection, acute -Direct admission for severe vaginal and suprapubic pain, urinary retention, bilateral flank pain, recent symptomatic UTI without resolution of symptoms after antibiotics -Creatinine on admission was 0.86, stable at 0.8 on 08/10 - Strict I's and O's - Renal ultrasound unremarkable 08/09 - Tamsulosin + Pyridium started and Olanzapine discontinued 08/10 - UA suggestive of UTI - H/o ESBL resistant to Cipro, patient currently on Meropenem. - Urine culture >100,000 cfu/ml Escherichia coli; 100,000 cfu/ml Escherichia coli #2; ANA LILIA to follow - Patient with left nephrostomy tube. Had 250cc voided urine output and 500cc nephrostomy output over past 8 hours - Nephrostomy exchange pending IR availability 2. Pain - Pain improved with current pain regimen 3. History of chemotherapy - S/p 6 cycles of cisplatin in 2019, as well as radiation therapy - Patient currently in remission - Patient with chest port on right side, no signs of secondary infection 4. Anxiety - Ativan TID PRN - States that she has only been taking once per day and is concerned about taking with NPO status - Encouraged her routine use of Ativan for comfort, sips okay to take Ativan while NPO 5. Cervical cancer - Stage 3b SCC of cervix - S/p Chemoradiation, in remission - Recent CT 08/02/22 unremarkable for signs of cancer recurrence - Recent Pap smear (07/15) negative for cervical dysplasia, however positive for HPV, for colposcopywith Dr. Martin - Port-A-Cath in place 6. Tobacco use 7. Nausea and vomiting - Daily nausea - No vomiting overnight - Phenergan suppository, zofran PRN 8. Nephrostomy status - No current signs of external infection/malposition - Patient was scheduled for neph tube exchange on 08/15, however will exchange while in patient, attempt for today pending IR availability 9. Port-A-Cath in place - No current signs of infection 10. DVT prophylaxis - SCDs, encouraged ambulation - Consider PT Dispo: continue inpatient management. NPO for Neph Tube exchange pending IR. will discuss with attending. Digitally Signed by ALANNA SCANLON DO on 08/14/2022 06:50 AM [facility] [id number] Note Date of Service 08/13/2022 Chief Complaint Abdominal pain, Nausea/Vomiting, Constipation Subjective Patient seen and examined with Dr. Graves. She denies BM overnight. Reports projective vomiting after Lactulose. Poor appetite. Concerned about weight loss. General: Denies fever, chills, headaches CV/Resp: Denies chest pain, shortness of breath and dizziness GI/: Denies dysuria Ext: Denies leg pain, edema Objective Vitals and Measurements T: 36.9 C (Oral) TMIN: 36.6 C (Oral) TMAX: 37 C (Oral) HR: 69 RR: 16 BP: 112/78 SpO2: 96% Intake and Output 7AM Yesterday to 7AM Today Intake and Output (Last 24 hours) Intake Oral Intake 30.00 Administration Information 1200.00 Output Urine Voided 1000.00 Urostomy Output: 1975.00 Stool Count 0.00 Total Summary Total Intake 1230.00 Total Output 2975.00 Fluid Balance -1745.00 Physical Exam Gen: AAOx3. NAD. CV: RRR Resp: CTAB, no wheezes or rales. No increased work of breathing. No accessory muscles use. Converses easily. Abdom: Soft, nontender, nondistended. +BS [id number] Extrem: no edema, no erythema, nontender Weight Dosing Weight: 52.5 kg (08/08/22) Medications Medications (19) Active Scheduled: (7) docusate sodium 100 mg Capsule 100 mg 1 cap(s), Oral, BID heparin 5,000 units/mL (1 mL) vial 5,000 unit(s) 1 mL, Subcutaneous, q8h meropenem 2 gram(s), IV Piggyback, q8h Nicoderm patch REMOVAL 1 EA, Miscellaneous, q24h nicotine 14 mg/24 hr ER patch 14 mg 1 patch(es), Transdermal, q24h phenazopyridine 100 mg tablet 100 mg 1 tab(s), Oral, TIDPC tamsulosin 0.4 mg Capsule 0.4 mg 1 cap(s), Oral, qDayPC Continuous: (1) NS (0.9% nacl) 1,000 mL 1,000 mL, Intravenous, 75 mL/hr PRN: (11) diphenhydramine 25 mg tablet 25 mg 1 tab(s), Oral, qHS famotidine 20 mg tablet 20 mg 1 tab(s), Oral, BID HYDROmorphone 0.5 mg/0.5 mL PF syringe 0.5 mg 0.5 mL, IV Push, q2h hydromorphone 1 mg/mL (1mL) INJ 1 mg 1 mL, IV Push, q2h LORAZEPam 1 mg Tablet 1 mg 1 tab(s), Oral, TID melatonin 3 mg tablet 3 mg 1 tab(s), Oral, qHS ondansetron 2 mg/ 1 mL 2 mL INJ 4 mg 2 mL, IV Push, q4h oxycodone 5 mg tablet (immediate release) 5 mg 1 tab(s), Oral, q4h oxycodone 5 mg tablet (immediate release) 10 mg 2 tab(s), Oral, q4h pantoprazole 40 mg VIAL 40 mg, IV Push, qDay promethazine 25 mg Suppository 25 mg 1 supp, Rectal, BID Lab Results 08/13 04:12 WBC: 6.5 Hgb: 12.0 Hct: 35.6 Platelet: 357 Neutrophil %: 57.9 Glucose Level: 85 Sodium Level: 141 Potassium Level: 3.6 BUN: <5.0 L Creatinine Lvl (s): 0.87 08/12 06:05 WBC: 6.7 Hgb: 11.1 L Hct: 32.8 L Platelet: 317 Neutrophil %: 59.3 Glucose Level: 82 Sodium Level: 143 Potassium Level: 3.7 BUN: 5.0 L Creatinine Lvl (s): 0.89 Imaging Results and Diagnostics XR Abdomen 2 Views w/ Decub/Erect Result Date: August 12, 2022 Verified By: BEAR LORA, CLOTILDE Choe CLINICAL STATEMENT: IMPRESSION: Nonobstructive bowel gas pattern. Small to moderate stool burden. I have personally reviewed the images of this examination and agree with the resident's findings and interpretation. US Renal Result Date: August 09, 2022 Verified By: HERNANDEZ RODRIGEZ MD CLINICAL STATEMENT: IMPRESSION: Normal appearing right kidney, without evidence of obstruction. Partially visualized left percutaneous nephroureteral catheter. Otherwisenormal left kidney. Preliminary Report was Dictated by a Resident Assessment/Plan 1. Complicated UTI (urinary tract infection) 2. History of chemotherapy 3. History of radiation therapy 4. Anxiety 5. Cervical cancer 6. Tobacco use 7. Nausea and vomiting 8. Nephrostomy status 9. Port-A-Cath in place 10. DVT prophylaxis 11. Premature menopause Patient is a 31 yo with a h/o cervical cancer with L nephrostomy admitted for pain control and UTI Condition: Stable IVF: NS 75ml/hr Diet: Regular, NPO for neph tube exchange today which was delayed GI Prophylaxis: Protonix VTE Prophylaxis: SCDs, Heparin TID Code: Full 1. Urinary tract infection, acute -Direct admission for severe vaginal and suprapubic pain, urinary retention, bilateral flank pain, recent symptomatic UTI without resolution of symptoms after antibiotics -Creatinine on admission was 0.86, stable at 0.8 on 08/10 - Strict I's and O's - Renal ultrasound unremarkable 08/09 - Tamsulosin + Pyridium started and Olanzapine discontinued 08/10 - UA suggestive of UTI - H/o ESBL resistant to Cipro, patient currently on Meropenem. - Urine culture >100,000 cfu/ml Escherichia coli; 100,000 cfu/ml Escherichia coli #2; ANA LILIA to follow - 1000cc/24hr voided urine output and 1975cc/24hr nephrostomy output 2. Pain - Oxycodone and Dilaudid - Will continue to monitor at this time 3. History of chemotherapy - S/p 6 cycles of cisplatin in 2019, as well as radiation therapy - Patient currently in remission - Patient with chest port on right side 4. Anxiety - Stable this morning - Ativan TID PRN 5. Cervical cancer - Stage 3b SCC of cervix - S/p Chemoradiation, in remission - Recent CT 08/02/22 unremarkable for signs of cancer recurrence - Recent Pap smear (07/15) negative for cervical dysplasia, however positive for HPV, for colposcopywith Dr. Martin - Port-A-Cath in place 6. Tobacco use 7. Nausea and vomiting - Patient reports Nausea overnight whicyh was releived with Phenergan suppository - Phenergan suppositories ordered BID PRN now 8. Nephrostomy status - No current signs of external infection/malposition - Patient was scheduled for neph tube exchange on 08/15, however will exchange while in patient, delayed yesterday, attempt for today 9. Port-A-Cath in place - No current signs of infection 10. DVT prophylaxis - SCDs 11. Constipation - Colace - S/p Milk of Mag x2 - S/p Lactulose x1 Dispo: continue inpatient management. NPO for Neph Tube exchange today. will discuss with attending. Digitally Signed by ALANNA SCANLON DO on 08/13/2022 07:00 AM [facility] [id number] Note Date of Service 08/13/2022 Chief Complaint Abdominal pain, Nausea/Vomiting, Constipation Subjective Patient seen and examined with Dr. Graves. She denies BM overnight. Reports projective vomiting after Lactulose. Poor appetite. Concerned about weight loss. General: Denies fever, chills, headaches CV/Resp: Denies chest pain, shortness of breath and dizziness GI/: Denies dysuria Ext: Denies leg pain, edema Objective Vitals and Measurements T: 36.9 C (Oral) TMIN: 36.6 C (Oral) TMAX: 37 C (Oral) HR: 69 RR: 16 BP: 112/78 SpO2: 96% Intake and Output 7AM Yesterday to 7AM Today Intake and Output (Last 24 hours) Intake Oral Intake 30.00 Administration Information 1200.00 Output Urine Voided 1000.00 Urostomy Output: 1975.00 Stool Count 0.00 Total Summary Total Intake 1230.00 Total Output 2975.00 Fluid Balance -1745.00 Physical Exam Gen: AAOx3. NAD. CV: RRR Resp: CTAB, no wheezes or rales. No increased work of breathing. No accessory muscles use. Converses easily. Abdom: Soft, nontender, nondistended. +BS [id number] Extrem: no edema, no erythema, nontender Weight Dosing Weight: 52.5 kg (08/08/22) Medications Medications (19) Active Scheduled: (7) docusate sodium 100 mg Capsule 100 mg 1 cap(s), Oral, BID heparin 5,000 units/mL (1 mL) vial 5,000 unit(s) 1 mL, Subcutaneous, q8h meropenem 2 gram(s), IV Piggyback, q8h Nicoderm patch REMOVAL 1 EA, Miscellaneous, q24h nicotine 14 mg/24 hr ER patch 14 mg 1 patch(es), Transdermal, q24h phenazopyridine 100 mg tablet 100 mg 1 tab(s), Oral, TIDPC tamsulosin 0.4 mg Capsule 0.4 mg 1 cap(s), Oral, qDayPC Continuous: (1) NS (0.9% nacl) 1,000 mL 1,000 mL, Intravenous, 75 mL/hr PRN: (11) diphenhydramine 25 mg tablet 25 mg 1 tab(s), Oral, qHS famotidine 20 mg tablet 20 mg 1 tab(s), Oral, BID HYDROmorphone 0.5 mg/0.5 mL PF syringe 0.5 mg 0.5 mL, IV Push, q2h hydromorphone 1 mg/mL (1mL) INJ 1 mg 1 mL, IV Push, q2h LORAZEPam 1 mg Tablet 1 mg 1 tab(s), Oral, TID melatonin 3 mg tablet 3 mg 1 tab(s), Oral, qHS ondansetron 2 mg/ 1 mL 2 mL INJ 4 mg 2 mL, IV Push, q4h oxycodone 5 mg tablet (immediate release) 5 mg 1 tab(s), Oral, q4h oxycodone 5 mg tablet (immediate release) 10 mg 2 tab(s), Oral, q4h pantoprazole 40 mg VIAL 40 mg, IV Push, qDay promethazine 25 mg Suppository 25 mg 1 supp, Rectal, BID Lab Results 08/13 04:12 WBC: 6.5 Hgb: 12.0 Hct: 35.6 Platelet: 357 Neutrophil %: 57.9 Glucose Level: 85 Sodium Level: 141 Potassium Level: 3.6 BUN: <5.0 L Creatinine Lvl (s): 0.87 08/12 06:05 WBC: 6.7 Hgb: 11.1 L Hct: 32.8 L Platelet: 317 Neutrophil %: 59.3 Glucose Level: 82 Sodium Level: 143 Potassium Level: 3.7 BUN: 5.0 L Creatinine Lvl (s): 0.89 Imaging Results and Diagnostics XR Abdomen 2 Views w/ Decub/Erect Result Date: August 12, 2022 Verified By: BEAR LORA, CLOTILDE Choe CLINICAL STATEMENT: IMPRESSION: Nonobstructive bowel gas pattern. Small to moderate stool burden. I have personally reviewed the images of this examination and agree with the resident's findings and interpretation. US Renal Result Date: August 09, 2022 Verified By: HERNANDEZ RODRIGEZ MD CLINICAL STATEMENT: IMPRESSION: Normal appearing right kidney, without evidence of obstruction. Partially visualized left percutaneous nephroureteral catheter. Otherwisenormal left kidney. Preliminary Report was Dictated by a Resident Assessment/Plan 1. Complicated UTI (urinary tract infection) 2. History of chemotherapy 3. History of radiation therapy 4. Anxiety 5. Cervical cancer 6. Tobacco use 7. Nausea and vomiting 8. Nephrostomy status 9. Port-A-Cath in place 10. DVT prophylaxis 11. Premature menopause Patient is a 31 yo with a h/o cervical cancer with L nephrostomy admitted for pain control and UTI Condition: Stable IVF: NS 75ml/hr Diet: Regular, NPO for neph tube exchange today which was delayed GI Prophylaxis: Protonix VTE Prophylaxis: SCDs, Heparin TID Code: Full 1. Urinary tract infection, acute -Direct admission for severe vaginal and suprapubic pain, urinary retention, bilateral flank pain, recent symptomatic UTI without resolution of symptoms after antibiotics -Creatinine on admission was 0.86, stable at 0.8 on 08/10 - Strict I's and O's - Renal ultrasound unremarkable 08/09 - Tamsulosin + Pyridium started and Olanzapine discontinued 08/10 - UA suggestive of UTI - H/o ESBL resistant to Cipro, patient currently on Meropenem. - Urine culture >100,000 cfu/ml Escherichia coli; 100,000 cfu/ml Escherichia coli #2; ANA LILIA to follow - 1000cc/24hr voided urine output and 1975cc/24hr nephrostomy output 2. Pain - Oxycodone and Dilaudid - Will continue to monitor at this time 3. History of chemotherapy - S/p 6 cycles of cisplatin in 2019, as well as radiation therapy - Patient currently in remission - Patient with chest port on right side 4. Anxiety - Stable this morning - Ativan TID PRN 5. Cervical cancer - Stage 3b SCC of cervix - S/p Chemoradiation, in remission - Recent CT 08/02/22 unremarkable for signs of cancer recurrence - Recent Pap smear (07/15) negative for cervical dysplasia, however positive for HPV, for colposcopywith Dr. Martin - Port-A-Cath in place 6. Tobacco use 7. Nausea and vomiting - Patient reports Nausea overnight whicyh was releived with Phenergan suppository - Phenergan suppositories ordered BID PRN now 8. Nephrostomy status - No current signs of external infection/malposition - Patient was scheduled for neph tube exchange on 08/15, however will exchange while in patient, delayed yesterday, attempt for today 9. Port-A-Cath in place - No current signs of infection 10. DVT prophylaxis - SCDs 11. Constipation - Colace - S/p Milk of Mag x2 - S/p Lactulose x1 Dispo: continue inpatient management. NPO for Neph Tube exchange today. will discuss with attending. Digitally Signed by ALANNA SCANLON on 08/13/2022 07:00 AM [facility] [id number] Note ORIGINAL EXAMINATION: THREE XRAY VIEWS OF THE ABDOMEN 08/12/2022 4:37 pm COMPARISON: Ultrasound retroperitoneum HISTORY: ORDERING SYSTEM PROVIDED HISTORY: Reason for Exam: severe constipation; hx of Stage IIIb cervical cancer. FINDINGS: There is a left-sided percutaneous nephroureteral catheter. No dilated loops of bowel. No air-fluid levels or free air on the upright view. Small to moderate stool burden. The included lung bases are clear. Partially visualized right chest port. Osseous structures are unremarkable. IMPRESSION: Nonobstructive bowel gas pattern. Small to moderate stool burden. I have personally reviewed the images of this examination and agree with the resident's findings and interpretation. Interpreted by: Clotilde Archer MD Preliminary Report By: Dora Burdick Electronically signed By Clotilde Archer MD Dictated Date: 08/12/2022 11:37:56 PM Prelim Date: 08/12/2022 11:41:09 PM Sign Date: 08/12/2022 11:43:25 PM Ordering Provider: [facility]10-10-2022 Note ORIGINAL EXAMINATION: THREE XRAY VIEWS OF THE ABDOMEN 08/12/2022 4:37 pm COMPARISON: Ultrasound retroperitoneum HISTORY: ORDERING SYSTEM PROVIDED HISTORY: Reason for Exam: severe constipation; hx of Stage IIIb cervical cancer. FINDINGS: There is a left-sided percutaneous nephroureteral catheter. No dilated loops of bowel. No air-fluid levels or free air on the upright view. Small to moderate stool burden. The included lung bases are clear. Partially visualized right chest port. Osseous structures are unremarkable. IMPRESSION: Nonobstructive bowel gas pattern. Small to moderate stool burden. I have personally reviewed the images of this examination and agree with the resident's findings and interpretation. Interpreted by: Clotilde Archer MD Preliminary Report By: Dora Burdick Electronically signed By Clotilde Archer MD Dictated Date: 08/12/2022 11:37:56 PM Prelim Date: 08/12/2022 11:41:09 PM Sign Date: 08/12/2022 11:43:25 PM Ordering Provider: [facility]10-10-2022 Note Date of Service 08/12/2022 Chief Complaint Abdominal Pain; Cervical Cancer Subjective Patient seen and examined with Dr. Graves. She states that pain has not improved since admission and that it still really hurts down there. Reports urinating only once yesterday. Denies BM. General: Denies fever, chills, headaches CV/Resp: Denies chest pain, shortness of breath and dizziness GI/: Denies diarrhea Ext: Denies leg pain, edema Objective Vitals and Measurements T: 37 C (Oral) TMIN: 36.5 C (Oral) TMAX: 37 C (Oral) HR: 83 RR: 16 BP: 114/70 SpO2: 94% Intake and Output 7AM Yesterday to 7AM Today Intake and Output (Last 24 hours) Intake Administration Information 1200.00 Oral Intake 120.00 Output Urine Voided 200.00 Urostomy Output: 1700.00 Stool Count 0.00 Total Summary Total Intake 1320.00 Total Output 1900.00 Fluid Balance -580.00 Physical Exam Gen: AAOx3. NAD. CV: RRR Resp: CTAB, no wheezes or rales. No increased work of breathing. No accessory muscles use. Converses easily. Abdom: Soft, nontender, nondistended. +BS [id number] Extrem: no edema, no erythema, nontender Weight Dosing Weight: 52.5 kg (08/08/22) Medications Medications (19) Active Scheduled: (7) docusate sodium 100 mg Capsule 100 mg 1 cap(s), Oral, BID heparin 5,000 units/mL (1 mL) vial 5,000 unit(s) 1 mL, Subcutaneous, q8h meropenem 2 gram(s), IV Piggyback, q8h Nicoderm patch REMOVAL 1 EA, Miscellaneous, q24h nicotine 14 mg/24 hr ER patch 14 mg 1 patch(es), Transdermal, q24h phenazopyridine 100 mg tablet 100 mg 1 tab(s), Oral, TIDPC tamsulosin 0.4 mg Capsule 0.4 mg 1 cap(s), Oral, qDayPC Continuous: (1) NS (0.9% nacl) 1,000 mL 1,000 mL, Intravenous, 75 mL/hr PRN: (11) diphenhydramine 25 mg tablet 25 mg 1 tab(s), Oral, qHS famotidine 20 mg tablet 20 mg 1 tab(s), Oral, BID HYDROmorphone 0.5 mg/0.5 mL PF syringe 0.5 mg 0.5 mL, IV Push, q2h hydromorphone 1 mg/mL (1mL) INJ 1 mg 1 mL, IV Push, q2h LORAZEPam 1 mg Tablet 1 mg 1 tab(s), Oral, TID melatonin 3 mg tablet 3 mg 1 tab(s), Oral, qHS ondansetron 2 mg/ 1 mL 2 mL INJ 4 mg 2 mL, IV Push, q4h oxycodone 5 mg tablet (immediate release) 5 mg 1 tab(s), Oral, q4h oxycodone 5 mg tablet (immediate release) 10 mg 2 tab(s), Oral, q4h pantoprazole 40 mg VIAL 40 mg, IV Push, qDay promethazine 25 mg Suppository 25 mg 1 supp, Rectal, BID Lab Results 08/12 06:05 WBC: 6.7 Hgb: 11.1 L Hct: 32.8 L Platelet: 317 Neutrophil %: 59.3 08/11 05:17 WBC: 6.1 Hgb: 12.0 Hct: 34.9 Platelet: 323 Neutrophil %: 57.1 Glucose Level: 86 Sodium Level: 141 Potassium Level: 3.6 BUN: 6.0 L Creatinine Lvl (s): 0.80 Imaging Results and Diagnostics US Renal Result Date: August 09, 2022 Verified By: HERNANDEZ RODRIGEZ MD CLINICAL STATEMENT: IMPRESSION: Normal appearing right kidney, without evidence of obstruction. Partially visualized left percutaneous nephroureteral catheter. Otherwisenormal left kidney. Preliminary Report was Dictated by a Resident Assessment/Plan 1. Complicated UTI (urinary tract infection) 2. History of chemotherapy 3. History of radiation therapy 4. Anxiety 5. Cervical cancer 6. Tobacco use 7. Nausea and vomiting 8. Nephrostomy status 9. Port-A-Cath in place 10. DVT prophylaxis 11. Premature menopause Patient is a 31 yo with a h/o cervical cancer with L nephrostomy tube, admitted for pain control and UTI Condition: Stable IVF: NS 75ml/hr Diet: Regular, NPO for neph tube exchange today GI Prophylaxis: Protonix VTE Prophylaxis: SCDs, Heparin TID Code: Full 1. Urinary tract infection, acute -Direct admission for severe vaginal and suprapubic pain, urinary retention, bilateral flank pain, recent symptomatic UTI without resolution of symptoms after antibiotics -Creatinine on admission was 0.86, stable at 0.8 on 08/10 - Strict I's and O's - Renal ultrasound unremarkable 08/09 - Tamsulosin + Pyridium started and Olanzapine discontinued 08/10 - UA suggestive of UTI - H/o ESBL resistant to Cipro, patient currently on Meropenem. - Urine culture >100,000 cfu/ml Escherichia coli; 100,000 cfu/ml Escherichia coli #2; ANA LILIA to follow - Patient with left nephrostomy tube. Had 200cc voided urine output and 1700cc nephrostomy output over past 24hours 2. Pain - Patient pain overall well controlled with current pain regimen. - Will continue to monitor at this time 3. History of chemotherapy - S/p 6 cycles of cisplatin in 2019, as well as radiation therapy - Patient currently in remission - Patient with chest port on right side 4. Anxiety - Stable this morning - Ativan TID PRN 5. Cervical cancer - Stage 3b SCC of cervix - S/p Chemoradiation, in remission - Recent CT 08/02/22 unremarkable for signs of cancer recurrence - Recent Pap smear (07/15) negative for cervical dysplasia, however positive for HPV, for colposcopywith Dr. Martin - Port-A-Cath in place 6. Tobacco use 7. Nausea and vomiting - Patient reports Nausea overnight whicyh was releived with Phenergan suppository - Phenergan suppositories ordered BID PRN now 8. Nephrostomy status - No current signs of external infection/malposition - Patient was scheduled for neph tube exchange on 08/15, however will exchange while in patient, attempt for today 9. Port-A-Cath in place - No current signs of infection 10. DVT prophylaxis - SCDs Dispo: continue inpatient management. NPO for Neph Tube exchange today. will discuss with attending. Digitally Signed by ALANNA SCANLON DO on 08/12/2022 06:50 AM [id number] Note Date of Service 08/12/2022 Chief Complaint Abdominal Pain; Cervical Cancer Subjective Patient seen and examined with Dr. Graves. She states that pain has not improved since admission and that it still really hurts down there. Reports urinating only once yesterday. Denies BM. General: Denies fever, chills, headaches CV/Resp: Denies chest pain, shortness of breath and dizziness GI/: Denies diarrhea Ext: Denies leg pain, edema Objective Vitals and Measurements T: 37 C (Oral) TMIN: 36.5 C (Oral) TMAX: 37 C (Oral) HR: 83 RR: 16 BP: 114/70 SpO2: 94% Intake and Output 7AM Yesterday to 7AM Today Intake and Output (Last 24 hours) Intake Administration Information 1200.00 Oral Intake 120.00 Output Urine Voided 200.00 Urostomy Output: 1700.00 Stool Count 0.00 Total Summary Total Intake 1320.00 Total Output 1900.00 Fluid Balance -580.00 Physical Exam Gen: AAOx3. NAD. CV: RRR Resp: CTAB, no wheezes or rales. No increased work of breathing. No accessory muscles use. Converses easily. Abdom: Soft, nontender, nondistended. +BS [id number] Extrem: no edema, no erythema, nontender Weight Dosing Weight: 52.5 kg (08/08/22) Medications Medications (19) Active Scheduled: (7) docusate sodium 100 mg Capsule 100 mg 1 cap(s), Oral, BID heparin 5,000 units/mL (1 mL) vial 5,000 unit(s) 1 mL, Subcutaneous, q8h meropenem 2 gram(s), IV Piggyback, q8h Nicoderm patch REMOVAL 1 EA, Miscellaneous, q24h nicotine 14 mg/24 hr ER patch 14 mg 1 patch(es), Transdermal, q24h phenazopyridine 100 mg tablet 100 mg 1 tab(s), Oral, TIDPC tamsulosin 0.4 mg Capsule 0.4 mg 1 cap(s), Oral, qDayPC Continuous: (1) NS (0.9% nacl) 1,000 mL 1,000 mL, Intravenous, 75 mL/hr PRN: (11) diphenhydramine 25 mg tablet 25 mg 1 tab(s), Oral, qHS famotidine 20 mg tablet 20 mg 1 tab(s), Oral, BID HYDROmorphone 0.5 mg/0.5 mL PF syringe 0.5 mg 0.5 mL, IV Push, q2h hydromorphone 1 mg/mL (1mL) INJ 1 mg 1 mL, IV Push, q2h LORAZEPam 1 mg Tablet 1 mg 1 tab(s), Oral, TID melatonin 3 mg tablet 3 mg 1 tab(s), Oral, qHS ondansetron 2 mg/ 1 mL 2 mL INJ 4 mg 2 mL, IV Push, q4h oxycodone 5 mg tablet (immediate release) 5 mg 1 tab(s), Oral, q4h oxycodone 5 mg tablet (immediate release) 10 mg 2 tab(s), Oral, q4h pantoprazole 40 mg VIAL 40 mg, IV Push, qDay promethazine 25 mg Suppository 25 mg 1 supp, Rectal, BID Lab Results 08/12 06:05 WBC: 6.7 Hgb: 11.1 L Hct: 32.8 L Platelet: 317 Neutrophil %: 59.3 08/11 05:17 WBC: 6.1 Hgb: 12.0 Hct: 34.9 Platelet: 323 Neutrophil %: 57.1 Glucose Level: 86 Sodium Level: 141 Potassium Level: 3.6 BUN: 6.0 L Creatinine Lvl (s): 0.80 Imaging Results and Diagnostics US Renal Result Date: August 09, 2022 Verified By: HERNANDEZ RODRIGEZ MD CLINICAL STATEMENT: IMPRESSION: Normal appearing right kidney, without evidence of obstruction. Partially visualized left percutaneous nephroureteral catheter. Otherwisenormal left kidney. Preliminary Report was Dictated by a Resident Assessment/Plan 1. Complicated UTI (urinary tract infection) 2. History of chemotherapy 3. History of radiation therapy 4. Anxiety 5. Cervical cancer 6. Tobacco use 7. Nausea and vomiting 8. Nephrostomy status 9. Port-A-Cath in place 10. DVT prophylaxis 11. Premature menopause Patient is a 31 yo with a h/o cervical cancer with L nephrostomy tube, admitted for pain control and UTI Condition: Stable IVF: NS 75ml/hr Diet: Regular, NPO for neph tube exchange today GI Prophylaxis: Protonix VTE Prophylaxis: SCDs, Heparin TID Code: Full 1. Urinary tract infection, acute -Direct admission for severe vaginal and suprapubic pain, urinary retention, bilateral flank pain, recent symptomatic UTI without resolution of symptoms after antibiotics -Creatinine on admission was 0.86, stable at 0.8 on 08/10 - Strict I's and O's - Renal ultrasound unremarkable 08/09 - Tamsulosin + Pyridium started and Olanzapine discontinued 08/10 - UA suggestive of UTI - H/o ESBL resistant to Cipro, patient currently on Meropenem. - Urine culture >100,000 cfu/ml Escherichia coli; 100,000 cfu/ml Escherichia coli #2; ANA LILIA to follow - Patient with left nephrostomy tube. Had 200cc voided urine output and 1700cc nephrostomy output over past 24hours 2. Pain - Patient pain overall well controlled with current pain regimen. - Will continue to monitor at this time 3. History of chemotherapy - S/p 6 cycles of cisplatin in 2019, as well as radiation therapy - Patient currently in remission - Patient with chest port on right side 4. Anxiety - Stable this morning - Ativan TID PRN 5. Cervical cancer - Stage 3b SCC of cervix - S/p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 unit(s) 1 mL, Subcutaneous, q8h meropenem 2 gram(s), IV Piggyback, q8h Nicoderm patch REMOVAL 1 EA, Miscellaneous, q24h nicotine 14 mg/24 hr ER patch 14 mg 1 patch(es), Transdermal, q24h phenazopyridine 100 mg tablet 100 mg 1 tab(s), Oral, TIDPC tamsulosin 0.4 mg Capsule 0.4 mg 1 cap(s), Oral, qDayPC Continuous: (1) NS (0.9% nacl) 1,000 mL 1,000 mL, Intravenous, 75 mL/hr PRN: (10) diphenhydramine 25 mg tablet 25 mg 1 tab(s), Oral, qHS famotidine 20 mg tablet 20 mg 1 tab(s), Oral, BID HYDROmorphone 0.5 mg/0.5 mL PF syringe 0.5 mg 0.5 mL, IV Push, q2h hydromorphone 1 mg/mL (1mL) INJ 1 mg 1 mL, IV Push, q2h LORAZEPam 1 mg Tablet 1 mg 1 tab(s), Oral, TID melatonin 3 mg tablet 3 mg 1 tab(s), Oral, qHS oxycodone 5 mg tablet (immediate release) 5 mg 1 tab(s), Oral, q4h oxycodone 5 mg tablet (immediate release) 10 mg 2 tab(s), Oral, q4h pantoprazole 40 mg VIAL 40 mg, IV Push, qDay promethazine 25 mg Suppository 25 mg 1 supp, Rectal, BID Lab Results 08/11 05:17 WBC: 6.1 Hgb: 12.0 Hct: 34.9 Platelet: 323 Neutrophil %: 57.1 Glucose Level: 86 Sodium Level: 141 Potassium Level: 3.6 BUN: 6.0 L Creatinine Lvl (s): 0.80 08/10 04:25 WBC: 6.5 Hgb: 11.2 L Hct: 33.3 L Platelet: 287 Neutrophil %: 57.0 Glucose Level: 82 Sodium Level: 143 Potassium Level: 3.9 BUN: 6.0 L Creatinine Lvl (s): 0.80 Imaging Results and Diagnostics US Renal Result Date: August 09, 2022 Verified By: HERNANDEZ RODRIGEZ MD CLINICAL STATEMENT: IMPRESSION: Normal appearing right kidney, without evidence of obstruction. Partially visualized left percutaneous nephroureteral catheter. Otherwisenormal left kidney. Preliminary Report was Dictated by a Resident Assessment/Plan 1. Urinary tract infection, acute 2. History of chemotherapy 3. History of radiation therapy 4. Anxiety 5. Cervical cancer 6. Tobacco use 7. Nausea and vomiting 8. Nephrostomy status 9. Port-A-Cath in place 10. DVT prophylaxis 11. Secondary amenorrhea Patient is a 31 yo with a h/o cervical cancer with L nephrostomy tube, admitted for pain control and UTI Condition: Stable IVF: NS 75ml/hr Diet: Regular, NPO after midnight for Neph tube exchange tomorrow GI Prophylaxis: Protonix VTE Prophylaxis: SCDs, Heparin TID Code: Full 1. Urinary tract infection, acute -Direct admission for severe vaginal and suprapubic pain, urinary retention, bilateral flank pain, recent symptomatic UTI without resolution of symptoms after antibiotics - Patient with left nephrostomy tube. Had 300cc voided urine output and 1625cc nephrostomy output over past 16 hours -Creatinine on admission was 0.86, stable at 0.8 on 08/10 - Strict I's and O's - Renal ultrasound unremarkable 08/09 - Tamsulosin + Pyridium started and Olanzapine discontinued 08/10 - UA suggestive of UTI - H/o ESBL resistant to Cipro, patient currently on Meropenem. Urine culture pending 2. Pain - Patient pain overall well controlled with current pain regimen. - Will continue to monitor at this time 3. History of chemotherapy - S/p 6 cycles of cisplatin in 2019, as well as radiation therapy - Patient currently in remission - Patient with chest port on R 4. Anxiety - Stable this morning - Ativan TID PRN 5. Cervical cancer - Stage 3b SCC of cervix - S/p Chemoradiation, in remission - Recent CT 08/02/22 unremarkable for signs of cancer recurrence - Recent Pap smear (07/15) negative for cervical dysplasia, however positive for HPV, for colposcopywith Dr. Martin - Port-A-Cath in place 6. Tobacco use 7. Nausea and vomiting - Patient reports Nausea overnight whicyh was releived with Phenergan suppository - Phenergan suppositories ordered BID PRN now 8. Nephrostomy status - No current signs of external infection/malposition - Patient was scheduled for neph tube exchange on 08/15, however will exchange while in patient, attempt for Friday 9. Port-A-Cath in place - No current signs of infection 10. DVT prophylaxis - SCDs Dispo: continue inpatient management. Plan for Neph Tube exchange tomorrow. Digitally Signed by FARZANA CAST DO on 08/11/2022 07:48 AM [facility] [id number] Note Date of Service 08/11/2022 Chief Complaint Abdominal Pain; Cervical Cancer Subjective Patient seen and examined. No acute events overnight. Overall patient feels that she is improving. She reports that her pain is well controlled with oxycodone and IV Dilaudid prn. Patient was reporting nausea/vomiting overnight but was switched to Phenergan suppositories which worked much better for her. She now has them available BID PRN with discontinuation of Zofran and PO Phenergan. Patient is happier with this regimen. Patient denies any severe uncontrolled abdominal pain, chest pain, shortness of breath, lightheadedness, fever, chills. No further concerns or complaints at this time and all questions were addressed thoroughly. No further concerns or complaints at this time and all questions were addressed thoroughly. Objective Vitals and Measurements T: 36.7 C (Oral) TMIN: 36.6 C (Oral) TMAX: 37.0 C (Oral) HR: 88(Monitored) RR: 16 BP: 111/73 SpO2: 95% Intake and Output 7AM Yesterday to 7AM Today Intake and Output (Last 24 hours) Intake Oral Intake 240.00 Administration Information 600.00 Output Urine Voided 300.00 Urostomy Output: 1625.00 Stool Count 0.00 Total Summary Total Intake 840.00 Total Output 1925.00 Fluid Balance -1085.00 Physical Exam Gen: AOx3, well appearing, NAD Cardiovascular: Regular Rate and Rhythm Respiratory: CTAB, no wheezes/rales/rhonchi Abdomen: +BS, soft, nontender, nondistended, no rebound or guarding Extremities: No calf tenderness or edema MSK: No tenderness to palpation of her back, neck, or hips No CVA tenderness. Skin: No swelling, erythema or ecchymosis. Weight Dosing Weight: 52.5 kg (08/08/22) Medications Medications (18) Active Scheduled: (7) docusate sodium 100 mg Capsule 100 mg 1 cap(s), Oral, BID heparin 5,000 units/mL (1 mL) vial 5,000 unit(s) 1 mL, Subcutaneous, q8h meropenem 2 gram(s), IV Piggyback, q8h Nicoderm patch REMOVAL 1 EA, Miscellaneous, q24h nicotine 14 mg/24 hr ER patch 14 mg 1 patch(es), Transdermal, q24h phenazopyridine 100 mg tablet 100 mg 1 tab(s), Oral, TIDPC tamsulosin 0.4 mg Capsule 0.4 mg 1 cap(s), Oral, qDayPC Continuous: (1) NS (0.9% nacl) 1,000 mL 1,000 mL, Intravenous, 75 mL/hr PRN: (10) diphenhydramine 25 mg tablet 25 mg 1 tab(s), Oral, qHS famotidine 20 mg tablet 20 mg 1 tab(s), Oral, BID HYDROmorphone 0.5 mg/0.5 mL PF syringe 0.5 mg 0.5 mL, IV Push, q2h hydromorphone 1 mg/mL (1mL) INJ 1 mg 1 mL, IV Push, q2h LORAZEPam 1 mg Tablet 1 mg 1 tab(s), Oral, TID melatonin 3 mg tablet 3 mg 1 tab(s), Oral, qHS oxycodone 5 mg tablet (immediate release) 5 mg 1 tab(s), Oral, q4h oxycodone 5 mg tablet (immediate release) 10 mg 2 tab(s), Oral, q4h pantoprazole 40 mg VIAL 40 mg, IV Push, qDay promethazine 25 mg Suppository 25 mg 1 supp, Rectal, BID Lab Results 08/11 05:17 WBC: 6.1 Hgb: 12.0 Hct: 34.9 Platelet: 323 Neutrophil %: 57.1 Glucose Level: 86 Sodium Level: 141 Potassium Level: 3.6 BUN: 6.0 L Creatinine Lvl (s): 0.80 08/10 04:25 WBC: 6.5 Hgb: 11.2 L Hct: 33.3 L Platelet: 287 Neutrophil %: 57.0 Glucose Level: 82 Sodium Level: 143 Potassium Level: 3.9 BUN: 6.0 L Creatinine Lvl (s): 0.80 Imaging Results and Diagnostics US Renal Result Date: August 09, 2022 Verified By: HERNANDEZ RODRIGEZ MD CLINICAL STATEMENT: IMPRESSION: Normal appearing right kidney, without evidence of obstruction. Partially visualized left percutaneous nephroureteral catheter. Otherwisenormal left kidney. Preliminary Report was Dictated by a Resident Assessment/Plan 1. Urinary tract infection, acute 2. History of chemotherapy 3. History of radiation therapy 4. Anxiety 5. Cervical cancer 6. Tobacco use 7. Nausea and vomiting 8. Nephrostomy status 9. Port-A-Cath in place 10. DVT prophylaxis 11. Secondary amenorrhea Patient is a 31 yo with a h/o cervical cancer with L nephrostomy tube, admitted for pain control and UTI Condition: Stable IVF: NS 75ml/hr Diet: Regular, NPO after midnight for Neph tube exchange tomorrow GI Prophylaxis: Protonix VTE Prophylaxis: SCDs, Heparin TID Code: Full 1. Urinary tract infection, acute -Direct admission for severe vaginal and suprapubic pain, urinary retention, bilateral flank pain, recent symptomatic UTI without resolution of symptoms after antibiotics - Patient with left nephrostomy tube. Had 300cc voided urine output and 1625cc nephrostomy output over past 16 hours -Creatinine on admission was 0.86, stable at 0.8 on 08/10 - Strict I's and O's - Renal ultrasound unremarkable 08/09 - Tamsulosin + Pyridium started and Olanzapine discontinued 08/10 - UA suggestive of UTI - H/o ESBL resistant to Cipro, patient currently on Meropenem. Urine culture pending 2. Pain - Patient pain overall well controlled with current pain regimen. - Will continue to monitor at this time 3. History of chemotherapy - S/p 6 cycles of cisplatin in 2019, as well as radiation therapy - Patient currently in remission - Patient with chest port on R 4. Anxiety - Stable this morning - Ativan TID PRN 5. Cervical cancer - Stage 3b SCC of cervix - S/p Chemoradiation, in remission - Recent CT 08/02/22 unremarkable for signs of cancer recurrence - Recent Pap smear (07/15) negative for cervical dysplasia, however positive for HPV, for colposcopywith Dr. Martin - Port-A-Cath in place 6. Tobacco use 7. Nausea and vomiting - Patient reports Nausea overnight whicyh was releived with Phenergan suppository - Phenergan suppositories ordered BID PRN now 8. Nephrostomy status - No current signs of external infection/malposition - Patient was scheduled for neph tube exchange on 08/15, however will exchange while in patient, attempt for Friday 9. Port-A-Cath in place - No current signs of infection 10. DVT prophylaxis - SCDs Dispo: continue inpatient management. Plan for Neph Tube exchange tomorrow. Digitally Signed by FARZANA CAST DO on 08/11/2022 07:48 AM [facility] [id number] Note Date of Service 08/10/22 Chief Complaint UTI Subjective Patient seen and examined this morning. Patient does endorse some pain this morning. Patient is duefor her pain medications. She states that she has been voiding yesterday last night. She states that she did have some burning with urination. She does also endorse some nausea. Otherwise patient is doing well. She denies fevers, chills, chest pain, shortness of breath. She received milk of magnesia yesterday, and has not had a bowel movement yet. She does endorse passing flatus. Objective Vitals and Measurements T: 36.6 C (Oral) TMIN: 36.4 C (Oral) TMAX: 36.6 C (Oral) HR: 64 RR: 16 BP: 103/76 SpO2: 97% Intake and Output 7AM Yesterday to 7AM Today Intake and Output (Last 24 hours) Intake Administration Information 1000.00 Oral Intake 540.00 Output Urine Voided 150.00 Urostomy Output: 500.00 Stool Count 0.00 Emesis Count 1.00 Total Summary Total Intake 1540.00 Total Output 650.00 Fluid Balance 890.00 Physical Exam General: Well appearing, in no acute distress. HEENT: Normal hearing. Normal mucosa. Cardiac: Regular rate and rhythm. Respiratory: Airways clear bilaterally Abdomen: Soft, minimal nonspecific tenderness, nondistended, no palpable masses, no hernias, normalbowel sounds. Extremities: Warm. No cyanosis, clubbing, or edema. Musculoskeletal: Normal range of motion. Psychiatric: Normal affect and demeanor. Weight Dosing Weight: 52.5 kg (08/08/22) Medications Medications (17) Active Scheduled: (6) docusate sodium 100 mg Capsule 100 mg 1 cap(s), Oral, BID meropenem 2 gram(s), IV Piggyback, q8h Nicoderm patch REMOVAL 1 EA, Miscellaneous, q24h nicotine 14 mg/24 hr ER patch 14 mg 1 patch(es), Transdermal, q24h olanzapine 5 mg tablet 5 mg 1 tab(s), Oral, qHS ondansetron 2 mg/ 1 mL 2 mL INJ 4 mg 2 mL, IV Push, q4h Continuous: (1) NS (0.9% nacl) 1,000 mL 1,000 mL, Intravenous, 75 mL/hr PRN: (10) diphenhydramine 25 mg tablet 25 mg 1 tab(s), Oral, qHS famotidine 20 mg tablet 20 mg 1 tab(s), Oral, BID HYDROmorphone 0.5 mg/0.5 mL PF syringe 0.5 mg 0.5 mL, IV Push, q2h hydromorphone 1 mg/mL (1mL) INJ 1 mg 1 mL, IV Push, q2h LORAZEPam 1 mg Tablet 1 mg 1 tab(s), Oral, TID melatonin 3 mg tablet 3 mg 1 tab(s), Oral, qHS oxycodone 5 mg tablet (immediate release) 5 mg 1 tab(s), Oral, q4h oxycodone 5 mg tablet (immediate release) 10 mg 2 tab(s), Oral, q4h pantoprazole 40 mg VIAL 40 mg, IV Push, qDay promethazine 12.5 mg tablet 12.5 mg 1 tab(s), Oral, q6h Lab Results 08/09 05:58 WBC: 7.8 Hgb: 11.9 L Hct: 35.5 Platelet: 290 Neutrophil %: 56.5 Glucose Level: 79 Sodium Level: 141 Potassium Level: 3.9 BUN: 9.0 Creatinine Lvl (s): 0.74 08/08 19:17 WBC: 9.0 Hgb: 11.6 L Hct: 34.8 Platelet: 284 Neutrophil %: 63.9 Glucose Level: 86 Sodium Level: 144 Potassium Level: 4.2 BUN: 8.0 Creatinine Lvl (s): 0.70 Imaging Results and Diagnostics US Renal Result Date: August 09, 2022 Verified By: HERNANDEZ RODRIGEZ MD CLINICAL STATEMENT: IMPRESSION: Normal appearing right kidney, without evidence of obstruction. Partially visualized left percutaneous nephroureteral catheter. Otherwise normal left kidney. Preliminary Report was Dictated by a Resident Assessment/Plan 1. Urinary tract infection, acute 2. History of chemotherapy 3. History of radiation therapy 4. Anxiety 5. Cervical cancer 6. Tobacco use 7. Nausea and vomiting 8. Nephrostomy status 9. Port-A-Cath in place 10. DVT prophylaxis 11. Secondary amenorrhea Patient is a 31 yo with a h/o cervical cancer with L nephrostomy tube, admitted for pain control and UTI 1. Urinary tract infection, acute -Direct admission for severe vaginal and suprapubic pain, urinary retention, bilateral flank pain, recent symptomatic UTI without resolution of symptoms after antibiotics - Patient with left nephrostomy tube. No UOP documented for last 24 hours, however the 24 hours prior patient had 800cc urine output and 1525 nephrostomy output -Creatinine on admission was 0.86, this morning 0.8 -Strict I's and O's - Renal ultrasound unremarkable 08/09 - UA suggestive of UTI - H/o ESBL resistant to Cipro, patient currently on Meropenem. Urine culture pending 2. Pain - Patient pain overall well controlled with current pain regimen. She does endorse pain this morning, however she is due for pain medications - Will continue to monitor at this time 3. History of chemotherapy - S/p 6 cycles of cisplatin in 2019, as well as radiation therapy - Patient currently in remission - Patient with chest port on R 4. Anxiety - Stable this morning 5. Cervical cancer - Stage 3b SCC of cervix - S/p Chemoradiation, in remission - Recent CT 08/02/22 unremarkable for signs of cancer recurrence - Recent Pap smear (07/15) negative for cervical dysplasia, however positive for HPV, for colposcopywith Dr. Martin - Port-A-Cath in place 6. Tobacco use 7. Nausea and vomiting - patient does endorse nausea this morning. - To receive PRN zofran. She states that this usually helps her 8. Nephrostomy status - No current signs of infection - Patient was scheduled for neph tube exchange on 08/15, however will exchange while in patient, attempt for Friday 9. Port-A-Cath in place - No current signs of infection 10. DVT prophylaxis - SCDs Dispo: continue in patient management Will discuss with Dr. Martin Digitally Signed by LUZ MARIA GODOY DO on 08/10/2022 07:10 AM Digitally Signed by LUZ MARIA GODOY DO on 08/10/2022 07:21 AM [id number] Note Date of Service 08/10/22 Chief Complaint UTI Subjective Patient seen and examined this morning. Patient does endorse some pain this morning. Patient is duefor her pain medications. She states that she has been voiding yesterday last night. She states that she did have some burning with urination. She does also endorse some nausea. Otherwise patient is doing well. She denies fevers, chills, chest pain, shortness of breath. She received milk of magnesia yesterday, and has not had a bowel movement yet. She does endorse passing flatus. Objective Vitals and Measurements T: 36.6 C (Oral) TMIN: 36.4 C (Oral) TMAX: 36.6 C (Oral) HR: 64 RR: 16 BP: 103/76 SpO2: 97% Intake and Output 7AM Yesterday to 7AM Today Intake and Output (Last 24 hours) Intake Administration Information 1000.00 Oral Intake 540.00 Output Urine Voided 150.00 Urostomy Output: 500.00 Stool Count 0.00 Emesis Count 1.00 Total Summary Total Intake 1540.00 Total Output 650.00 Fluid Balance 890.00 Physical Exam General: Well appearing, in no acute distress. HEENT: Normal hearing. Normal mucosa. Cardiac: Regular rate and rhythm. Respiratory: Airways clear bilaterally Abdomen: Soft, minimal nonspecific tenderness, nondistended, no palpable masses, no hernias, normalbowel sounds. Extremities: Warm. No cyanosis, clubbing, or edema. Musculoskeletal: Normal range of motion. Psychiatric: Normal affect and demeanor. Weight Dosing Weight: 52.5 kg (08/08/22) Medications Medications (17) Active Scheduled: (6) docusate sodium 100 mg Capsule 100 mg 1 cap(s), Oral, BID meropenem 2 gram(s), IV Piggyback, q8h Nicoderm patch REMOVAL 1 EA, Miscellaneous, q24h nicotine 14 mg/24 hr ER patch 14 mg 1 patch(es), Transdermal, q24h olanzapine 5 mg tablet 5 mg 1 tab(s), Oral, qHS ondansetron 2 mg/ 1 mL 2 mL INJ 4 mg 2 mL, IV Push, q4h Continuous: (1) NS (0.9% nacl) 1,000 mL 1,000 mL, Intravenous, 75 mL/hr PRN: (10) diphenhydramine 25 mg tablet 25 mg 1 tab(s), Oral, qHS famotidine 20 mg tablet 20 mg 1 tab(s), Oral, BID HYDROmorphone 0.5 mg/0.5 mL PF syringe 0.5 mg 0.5 mL, IV Push, q2h hydromorphone 1 mg/mL (1mL) INJ 1 mg 1 mL, IV Push, q2h LORAZEPam 1 mg Tablet 1 mg 1 tab(s), Oral, TID melatonin 3 mg tablet 3 mg 1 tab(s), Oral, qHS oxycodone 5 mg tablet (immediate release) 5 mg 1 tab(s), Oral, q4h oxycodone 5 mg tablet (immediate release) 10 mg 2 tab(s), Oral, q4h pantoprazole 40 mg VIAL 40 mg, IV Push, qDay promethazine 12.5 mg tablet 12.5 mg 1 tab(s), Oral, q6h Lab Results 08/09 05:58 WBC: 7.8 Hgb: 11.9 L Hct: 35.5 Platelet: 290 Neutrophil %: 56.5 Glucose Level: 79 Sodium Level: 141 Potassium Level: 3.9 BUN: 9.0 Creatinine Lvl (s): 0.74 08/08 19:17 WBC: 9.0 Hgb: 11.6 L Hct: 34.8 Platelet: 284 Neutrophil %: 63.9 Glucose Level: 86 Sodium Level: 144 Potassium Level: 4.2 BUN: 8.0 Creatinine Lvl (s): 0.70 Imaging Results and Diagnostics US Renal Result Date: August 09, 2022 Verified By: HERNANDEZ RODRIGEZ MD CLINICAL STATEMENT: IMPRESSION: Normal appearing right kidney, without evidence of obstruction. Partially visualized left percutaneous nephroureteral catheter. Otherwise normal left kidney. Preliminary Report was Dictated by a Resident Assessment/Plan 1. Urinary tract infection, acute 2. History of chemotherapy 3. History of radiation therapy 4. Anxiety 5. Cervical cancer 6. Tobacco use 7. Nausea and vomiting 8. Nephrostomy status 9. Port-A-Cath in place 10. DVT prophylaxis 11. Secondary amenorrhea Patient is a 31 yo with a h/o cervical cancer with L nephrostomy tube, admitted for pain control and UTI 1. Urinary tract infection, acute -Direct admission for severe vaginal and suprapubic pain, urinary retention, bilateral flank pain, recent symptomatic UTI without resolution of symptoms after antibiotics - Patient with left nephrostomy tube. No UOP documented for last 24 hours, however the 24 hours prior patient had 800cc urine output and 1525 nephrostomy output -Creatinine on admission was 0.86, this morning 0.8 -Strict I's and O's - Renal ultrasound unremarkable 08/09 - UA suggestive of UTI - H/o ESBL resistant to Cipro, patient currently on Meropenem. Urine culture pending 2. Pain - Patient pain overall well controlled with current pain regimen. She does endorse pain this morning, however she is due for pain medications - Will continue to monitor at this time 3. History of chemotherapy - S/p 6 cycles of cisplatin in 2019, as well as radiation therapy - Patient currently in remission - Patient with chest port on R 4. Anxiety - Stable this morning 5. Cervical cancer - Stage 3b SCC of cervix - S/p Chemoradiation, in remission - Recent CT 08/02/22 unremarkable for signs of cancer recurrence - Recent Pap smear (07/15) negative for cervical dysplasia, however positive for HPV, for colposcopywith Dr. Martin - Port-A-Cath in place 6. Tobacco use 7. Nausea and vomiting - patient does endorse nausea this morning. - To receive PRN zofran. She states that this usually helps her 8. Nephrostomy status - No current signs of infection - Patient was scheduled for neph tube exchange on 08/15, however will exchange while in patient, attempt for Friday 9. Port-A-Cath in place - No current signs of infection 10. DVT prophylaxis - SCDs Dispo: continue in patient management Will discuss with Dr. Martin Digitally Signed by LUZ MARIA GODOY DO on 08/10/2022 07:10 AM Digitally Signed by JORGERAHUL LUZ MARIA on 08/10/2022 07:21 AM [facility] [id number] Note Date of Service 08/09/2022 Chief Complaint UTI Subjective Patient seen and examined with Dr. Graves. Pain 06/12. Tearful and refuses catheterization. Reports a tiny amount of urination last night. Denies fever/chills, SOB, chest pain. Objective Vitals and Measurements T: 36.5 C (Oral) TMIN: 36.4 C (Oral) TMAX: 36.6 C (Oral) HR: 55 RR: 18 BP: 113/78 SpO2: 97% HT: 167.6 cm WT: 52.5 kg BMI: 18.69 Intake and Output 7AM Yesterday to 7AM Today Intake and Output (Last 24 hours) Intake Administration Information 1000.00 Oral Intake 100.00 Output Urine Voided 150.00 Urostomy Output: 500.00 Stool Count 0.00 Emesis Count 1.00 Total Summary Total Intake 1100.00 Total Output 650.00 Fluid Balance 450.00 Physical Exam Gen: AAOx3. NAD. CV: RRR Resp: CTAB, no wheezes or rales. No increased work of breathing. No accessory muscles use. Converses easily. Abdom: Soft, nondistended. +BS [id number] Extrem: no edema, no erythema, nontender Weight Dosing Weight: 52.5 kg (08/08/22) Medications Medications (14) Active Scheduled: (5) docusate sodium 100 mg Capsule 100 mg 1 cap(s), Oral, BID meropenem 2 gram(s), IV Piggyback, q8h Nicoderm patch REMOVAL 1 EA, Miscellaneous, q24h nicotine 14 mg/24 hr ER patch 14 mg 1 patch(es), Transdermal, q24h ondansetron 2 mg/ 1 mL 2 mL INJ 4 mg 2 mL, IV Push, q4h Continuous: (0) PRN: (9) diphenhydramine 25 mg tablet 25 mg 1 tab(s), Oral, qHS famotidine 20 mg tablet 20 mg 1 tab(s), Oral, BID HYDROmorphone 0.5 mg/0.5 mL PF syringe 0.5 mg 0.5 mL, IV Push, q2h hydromorphone 1 mg/mL (1mL) INJ 1 mg 1 mL, IV Push, q2h melatonin 3 mg tablet 3 mg 1 tab(s), Oral, qHS oxycodone 5 mg tablet (immediate release) 5 mg 1 tab(s), Oral, q4h oxycodone 5 mg tablet (immediate release) 10 mg 2 tab(s), Oral, q4h pantoprazole 40 mg VIAL 40 mg, IV Push, qDay promethazine 12.5 mg tablet 12.5 mg 1 tab(s), Oral, q6h Lab Results 08/09 05:58 WBC: 7.8 Hgb: 11.9 L Hct: 35.5 Platelet: 290 Neutrophil %: 56.5 Glucose Level: 79 Sodium Level: 141 Potassium Level: 3.9 BUN: 9.0 Creatinine Lvl (s): 0.74 08/08 19:17 WBC: 9.0 Hgb: 11.6 L Hct: 34.8 Platelet: 284 Neutrophil %: 63.9 Glucose Level: 86 Sodium Level: 144 Potassium Level: 4.2 BUN: 8.0 Creatinine Lvl (s): 0.70 Assessment/Plan 1. Urinary tract infection, acute -Direct admission for severe vaginal and suprapubic pain, urinary retention, bilateral flank pain, recent symptomatic UTI without resolution of symptoms after antibiotics - History of left hydronephrosis - left nephrostomy tube in place and with urinary output -Will reattempt physical exam in the morning, with speculum exam -Creatinine on admission was 0.86, GFR >60 -We will consider fluid maintenance if okay with attending -Strict I's and O's -Consider G/C STI testing - Renal ultrasound unremarkable 08/09 - UA results [place] and nitrites, turbid, loaded WBC, 4+ bacteria - H/o ESBL resistant to Cipro, Abx switched to Meropenem 2g q8hr - UOP: 150 cc, Left nephrostomy 500 cc - Olanzapine may be contributing to urinary retention, will continue at this time and monitor 2. History of chemotherapy -2019, Dr. Martin 3. History of radiation therapy -2019, Dr. Martin 4. Anxiety - consider addiction social worker consult - declined counseling 5. Cervical cancer -Stage 3b SCC of cervix -S/p Chemoradiation, in remission -Recent CT 08/02/22 unremarkable for signs of cancer recurrence -Recent Pap smear (07/15) negative for cervical dysplasia, however positive for HPV, for colposcopy with Dr. Martin - Port-A-Cath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 Nitrite - Positive.1 UA Leuk Est - Large Urine Protein/Creat Ratio (08/08/2022) U Creatinine - 112.1 mg/dL U Protein - 141.4 mg/dL U Ratio Prot/Creat - 1.3 ratio Allergies codeine penicillin Additional Information VACCINATE! IT SAVES LIVES! Members of the community who have not yet received the COVID-19 vaccine and would like to receive it can visit one of [facility] vaccine clinics. There are many vaccine clinic locations within the [facility]. For locations and available times, please visit [email or web address]. It is important to note that some COVID mobile vaccine clinics are held outdoors and may be canceled in rainy orstormy conditions. To learn more about pediatric vaccinations (ages 5-11), we invite you to visit the [facility] webpage. [email or web address] learn more about the COVID-19 vaccine, we invite you to visit the [employer] website for a list of frequently asked questions. [email or web address] [facility] Patient Portal Access Instructions: Stay connected with your healthcare team and access your personal medical information anytime with the [facility] Patient Portal.If you would like a full copy of your medical records, please contact the [facility] Medical Records Department, Friday through Friday between 8a.m. and 4:30p.m. Please follow the directions below to access the portal: 1.Access the email account you provided upon registration to the [facility].2.Look for an invitation email from [facility].3.Open the email and access the invitation link: Accept Invitation to [facility]4.Fill in the required quintero to create your account. Sign into [email or web address] with your username and password that you created in the above steps to stay up to date. You can then view a summary of results, a summary of your visits, and the ability to download your summaries to your computer or send the information securely to a physician. Remember that your healthcare information is confidential, so carefully consider who you will allow to register on the [facility] [employer] Patient Portal for access to your information. You can also access the [employer] Patient Portal on the [employer]. Simply click on Health Records under [place] and then click on the [employer] logo. HOW TO SAFELY DISPOSE OF PRESCRIPTION MEDICATIONS Please use one of the following methods to safely dispose of your unused medications. 1.Use a drug disposal kit: the drug disposal pouch allows you to safely discard your old and unuseddrugs. Ask your nurse to give you one when you are discharged.2.Visit a local take-back location: Many local pharmacies and police departments have programs that collect old and unwanted prescriptiondrugs. Call your local pharmacy or go to http://bit.ly/3C2Mw4q to find one close to you.3.Make use of household items: Use cat litter or old coffee grounds to dispose medications if other options arenot available. Mix your drugs with these household products, seal them in an airtight container andthrow it into the garbage. Call [facility]: [phone] to be sure your drugs can be disposed of in this way. Some medicines may require a different approach.4.Never flush your medications down the toilet. IF YOU HAVE BEEN PRESCRIBED AN OPIOID FOR PAIN If you have been prescribed an opioid (such as hydrocodone, oxycodone or morphine), it is critical to understand the possible side effects and risks of opioid pain medications. Even when taken as directed, opioids can have several side effects including: Tolerance, meaning you might need to take more of a medication for the same pain relief. Nausea, vomiting and/or constipation. Sleepiness, dizziness, dry mouth, confusion, depression or itching. Physical dependence, meaning you have withdrawal symptoms when a medication is stopped, can develop within a few days. KNOW YOUR RESPONSIBILITIES It is important to know exactly how much and how often to take the opioid pain medications you are prescribed. Never take opioids in higher amounts or more often than prescribed. Do not combine opioids with alcohol or other drugs that cause drowsiness, such as benzodiazepines, also known as benzos, including diazepam and alprazolam, muscle relaxants or sleep aids. Never sell or share prescription opioids. This is illegal. Store opioids in a secure place and out of reach of others (including children, family, friends and visitors). The last page of this document has been signed and retained as a CHART COPY. Signatures Patient Education Materials Medication Leaflets My discharge plan and instructions have been reviewed and explained to me and I,LALY NAVAS understand my current condition and have read and understand these discharge instructions. I have received a written copy of the plan/instructions. If I have questions, I am aware that I should contact my doctor. 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 Name: ANTONELLALALY/Sex: 1990 Female Med Rec #: [id number] Physician: Financial #: [id number] Pt. Type: O Room/Bed: / Admit/Disch: 07/04/22 10:21:00 - Institution: Allergies identified in patient's electronic medical record at time of printing on 07/04/22 Entry 1 Entry 2 Substance codeine penicillin Reaction Type Allergy Allergy Last Modified By: Cesar Hyman RN, RN Evan 02/03/21 04/12/20 15:04:17 17:13:24 Case Attendance- IR Entry 1 Entry 2 Entry 3 Case Attendee VIRAL MANUEL MD, Terra L Rad Patton, JAMAL Oglesby Role Performed Radiologist Procedure Scrub Technologist Procedure Nurse Details Time In 07/04/22 12:25:00 07/04/22 12:15:00 07/04/22 12:15:00 Time Out 07/04/22 12:47:00 07/04/22 13:00:00 07/04/22 13:00:00 Procedure/Preference IR Neph Cath-Neph IR Neph Cath-Neph IR Neph Cath-Neph Card Ureter W/Guide Left SN Ureter W/Guide Left SN Ureter W/Guide Left SN Last Modified By: Sam Junior Rad Tech Kathy Bollon, Rad Tech Kathy A 07/04/22 12:51:23 A 07/04/22 12:52:44 A 07/04/22 12:54:01 Entry 4 Case Attendee Sam Junior Role Performed Circulating Technologist Details Time In 07/04/22 12:38:00 Time Out 07/04/22 13:00:00 Procedure/Preference IR Neph Cath-Neph Card Ureter W/Guide Left SN Last Modified By: Sam Junior 07/04/22 12:53:36 Radiology Procedures- IR Entry 1 Procedure/Preference IR Neph Cath-Neph Actual Procedure IR NEPH CATH-NEPH Card Ureter W/Guide Left SN URETER W/ GUIDE LEFT SN Primary Procedure Yes Primary Surgeon VIRAL MANUEL MD Anesthesia/Sedation Local, IV Sedation Type Additional Procedure Times Start 07/04/22 12:25:00 Stop 07/04/22 12:47:00 Specialty Service SN Radiology Procedure EBL 0 mL Last Modified By: Sam Junior Devika A 07/04/22 12:57:11 Radiology Procedure Details - IR Entry 1 Radiology Sedation Case Times Sedation Start Time 07/04/22 12:29:00 Sedation Stop Time 07/04/22 12:47:00 Sedation Total Time 18 min Radiology - Fluid/Drainage Radiology Contrast Contrast Used? Yes Dose 10 mL Radiology Flouroscopy Fluoroscopy Used? Yes Fluoro Dose (mGy) 13.76 Fluoro Time 0.9 min Radiology Local Local Type: 1% Lidocaine Local Dose 10 ml Radiology Procedure Site Site/Location lt renal Site Condition No complications Dressing Type Bioclusive 4 X 5, Gauze Technologist Notes 8.5F x 26cm Boston sponge 4 X 4 Nephroureterostomy Stent lot#[id number] LT Renal Last Modified By: JAMAL Lindsey 07/04/22 13:56:46 General Case Data - IR Entry 1 Case Information Room IR 18 Case Level IR Level 2 Wound Class None Specialty SN Radiology Procedure ASA Class None Diagnosis Preop Diagnosis cerival cancer Postop Same As Preop Yes Postop Diagnosis cerival cancer Last Modified By: Sam Junior Devika A 07/04/22 12:56:49 Medication Administration- IR Entry 1 Entry 2 Entry 3 Medication Versed Benadryl Dilardid Time Administered 07/04/22 12:29:00 07/04/22 12:30:00 07/04/22 12:32:00 Route of Admin IV Push IV Push IV Push Dose 1 mg 50 mg 1 mg Volume VORB * *Verbal Order Read Back (VORB) is required for NON- PHYSICIAN administration of medications. Administered by No No No Physician? Administered by: JAMAL Lindsey RN Deborah E Patton, RN Deborah E Verbal Order Read VIRAL MANUEL MD, JAMES MD BUCHINO, JAMES MD Back from: Last Modified By: JAMAL Lindsey RN Deborah E Patton, RN Deborah E 07/04/22 13:06:17 07/04/22 13:06:17 07/04/22 13:06:17 Procedure Case Times- IR Entry 1 Patient In Procedure Patient In OR 07/04/22 12:15:00 Patient Out of OR 07/04/22 13:00:00 Procedure Start/Stop Procedure Start Time 07/04/22 12:25:00 Procedure Stop Time 07/04/22 12:47:00 Last Modified By: Sam Junior Devika A 07/04/22 12:51:46 Immediate Post Procedure Note - IR Entry 1 Immediate Post Yes Procedure Note displayed for Physician to review Closure Technique Closure Technique Other than Primary Last Modified By: Sam Junior Devika A 07/04/22 12:49:27 Immediate Post Procedure Note - IR Signed By: VIRAL MANUEL MD 07/04/22 12:49 No Complications Allergy Information- IR Entry 1 Allergies Reviewed? Yes Allergies Reviewed Other With Last Modified By: Sam Junior Devika A 07/04/22 12:49:35 Radiology Protocols/Time Out- IR Entry 1 Preprocedure Clinician Verifies Correct patient ID When Clinically Confirmation of correct using name & date Indicated side(s) and site(s), or MRN, Accurate Correct diagnostic and procedure, complete radiology tests Informed Consent, H & P available update immediately prior to procedure, if applicable OR/Procedure Room/Bedside Time 07/04/22 12:25:00 Clinician Verifies Correct patient identity including EMR & records using name and date or medical record number, Accurate procedure consent form, Correct patient position, Necessary equipment is available When Applicable Confirmation correct Team Members VIRAL MANUEL MD, side and site marked, Present for Time Out Patti Johnson Relevant images and César Oglesby RN results are properly Sandi Amador Rad labeled and Tech Devika A appropriately displayed, Double verification of sterility indicators complete Instrument Sterility Procedure IR Neph Cath-Neph Ureter W/Guide Left SN Last Modified By: Sam Junior Devika A 07/04/22 12:54:50 Skin Prep- IR Entry 1 Procedure IR Neph Cath-Neph Ureter W/Guide Left SN Skin Prep Prep Area Back Side Left By Patti Johnson Prep Agents Betadine Solution Tech Hair Removal Method N/A Last Modified By: BolSam marie 07/04/22 12:55:26 Patient Positioning- IR Entry 1 Procedure IR Neph Cath-Neph Body Position OP Prone Ureter W/Guide Left SN Feet Uncrossed? Yes Pressure Points Yes Checked Last Modified By: Sam Junior 07/04/22 12:55:41 Radiology Procedure Plan - IR Entry 1 Radiology - Nursing Care Plan Outcome Statement The patient Outcome Statement The patient receives demonstrates knowledge Cont. appropriate of the expected medication(s), safely responses to the administered during the operative/invasive perioperative/invasive procedure., The period., The patient is patient's value system, free from signs and lifestyle, ethnicity, symptoms of injury and culture are caused by extraneous considered, respected, objects (equipment, and incorporated in the instrumentation, perioperative plan of sponges, or sharps)., care., The patient is The patient is free free from signs and from signs and symptoms symptoms of infection., of electrical injury. The patient is free from signs and symptoms of injury related to positioning. Radiology - Action Plan Outcomes Met? Yes Mottler Operator JAMAL Lindsey Completing Procedure Plan Last Modified By: JAMAL Lindsey 07/04/22 13:08:30 Transfer Post Procedure- IR Entry 1 RAD - Transport to Recovery Patient Transported IV Via Stretcher With Post-op Destination Receiving Transported By JAMAL Lindsey Post Procedure Time Out Double Verification Yes Date/Time Verified 07/04/22 12:15:00 of ID band on patient Completed Verfied ID Band on JAMAL Lindsey by Last Modified By: Sam Junior 07/04/22 13:00:26 Case Comments <None> Finalized By: JAMAL Lindsey Document Signatures Signed By: JAMAL Lindsey 07/04/22 13:57 [facility] 09-01-2022 Evaluation + Plan noteExtracted from: Title:IR pre procedure H&P Author:VIKY GRANADOS PA-C Date:07/04/22 Interventional Radiology Focused Preprocedure History/Physical Reason for Visit CERVICAL CA History of Presenting Illness/Planned IR Procedure History of Cervical cancer. Last tube exchange was 05/23/2022 Allergies (2) ActiveReaction codeineNone Documented penicillinNone Documented Home Medications (6) Active acetaminophen-oxyCODONE 325 mg-5 mg oral tablet 1 tab(s), PRN, Oral, q6hr Ativan 1 mg oral tablet 1 mg = 1 tab(s), PRN, Oral, TID Normal Saline Flush 0.9% injectable solution 0.09 gram(s) = 10 mL, IR Drain, Daily OLANZapine 5 mg oral tablet 5 mg = 1 tab(s), Oral, qHS Tylenol 325 mg oral capsule 650 mg, PRN, Oral, q4h Zofran 4 mg oral tablet 4 mg = 1 tab(s), PRN, Oral, q6h Problem List/Past Medical History Acute kidney injury Anxiety Asthma Bradycardia Cervical cancer Complicated UTI (urinary tract infection) DVT prophylaxis Decreased appetite Dehydration History of chemotherapy History of radiation therapy Left flank pain Moderate protein-calorie malnutrition Nausea and vomiting Nephrostomy status Obstructive uropathy Port-A-Cath in place Tobacco use Surgical History Nephrostomy with tube drainage: 01/10/21 JJ stent: 11/15/20 Radiation: 06/2020 Cervical biopsy: 2019 Tumor cells, benign: 2001 Cannulation of Portacath Nephrostomy with tube drainage Family History Mother: Asthma; Breast cancer; COPD - Chronic obstructive pulmonary disease; Heart attack; Heart disease; Hypertension; Kidney stone Father: Alcohol abuse; Stroke; Substance abuse Sister: Cancer Grandparent: Diabetes; Stroke Social History Alcohol Risk Assessment: Denies Alcohol Use; Details: Use: Current. Type: Beer. Frequency: 1-2 times per week. Home/Environment Risk Assessment: No Risk; Details: Domestic Concerns: None. Living situation: Home/Independent. Safe place to go: Yes. Lives In: Mobile home, 1st floor bedroom, 1st floor bathroom. Current Home Treatments None. Professional Skilled Services or Special Community Resources None. Financial concerns: No. Marital Status: Unmarried. Nutrition/Health Risk Assessment: No Risk; Details: Type of diet: Regular. Appetite Fair. Eating Difficulties None. Caffeine intake amount: 1 can pop per day. Sexual Details: Sexually active: Yes. First active at age: 18 Years. Current partners: 1. Number of lifetime partners: 7. Self described orientation: Straight or heterosexual. Other contraceptive use: condoms. History of sexual abuse: No. Gender Identity: Identifies as female. Substance Abuse Risk Assessment: Denies Substance Abuse; Details: Use: Never. Tobacco Details: Nicotine Use: 5-9 cigarettes (between 1/4 to 1/2 pack)/day in last 30 days. Type: Cigarettes. Tobacco use per day: 10. Number of years: 10. Started at age: 19 Years. Previous treatment: None. Ready to change: Yes. Physical Exam Vitals: Guzvshiwlxq53.7 (10:37) Systolic Blood PressureNo result Diastolic Blood PressureNo result Pulse88 (10:37) QpX258 (10:37) Respiratory Rate18 (10:37) General: Alert, cooperative. Lungs CTAB Heart RRR The remainder of the physical exam is noncontributory. Labs Anticoagulation Labs No qualifying data available. Last Month UA Appear: Cloudy (07/03/22) UA Bacteria: 4+ (07/03/22) UA Bili: Negative (07/03/22) UA Blood: Moderate (07/03/22) UA Color: Yellow (07/03/22) UA Glucose: Negative (07/03/22) UA Ketones: Negative (07/03/22) UA Leuk Est: Large (07/03/22) UA Nitrite: Positive (07/03/22) UA pH: 7.0 (07/03/22) UA Protein: 100 (07/03/22) UA RBC: 0-2 (07/03/22) UA Spec Grav: 1.010 (07/03/22) UA Specimen Type: Clean Catch (07/03/22) UA Squam Epithelial: 0-2 (07/03/22) UA Urobilinogen: 0.2 (07/03/22) UA WBC: 25-50 (07/03/22) Assessment/Treatment Plan Left nephroureteral catheter exchange. Post Procedure Discharge Plan Patient to be discharged home. _ Future Appointments Appointment Date:01/01/2023 11:30:00 AM Scheduled Provider:FLIP MARTIN MD Location:[facility] Appointment Type:SO OV Follow Up Future Scheduled Tests Radiology* IR Neph Cath-Neph Ureter W/Guide Left 07/03/22 * IR Neph Cath-Neph Ureter W/Guide Left 08/02/22 * IR Neph Cath-Neph Ureter W/Guide Left 09/02/22 * IR Neph Cath-Neph Ureter W/Guide Left 10/02/22 * IR Neph Cath-Neph Ureter W/Guide Left 11/02/22 * IR Neph Cath-Neph Ureter W/Guide Left 12/03/22 * IR Neph Cath-Neph Ureter W/Guide Left 12/31/22 * IR Neph Cath-Neph Ureter W/Guide Left 01/31/23 * IR Neph Cath-Neph Ureter W/Guide Left 03/02/23 * IR Neph Cath-Neph Ureter W/Guide Left 04/02/23 * IR Neph Cath-Neph Ureter W/Guide Left 05/02/23 * IR Neph Cath-Neph Ureter W/Guide Left 06/02/23 [facility] 09-01-2022 Note IR Procedure Record Summary Primary Physician: Finalized Date/Time: 07/04/22 13:57:26 Pt. Name: ANTONELLALALY./Sex: 1990 Female Med Rec #: [id number] Physician: Financial #: [id number] Pt. Type: O Room/Bed: / Admit/Disch: 07/04/22 10:21:00 - Institution: Allergies identified in patient's electronic medical record at time of printing on 07/04/22 Entry 1 Entry 2 Substance codeine penicillin Reaction Type Allergy Allergy Last Modified By: Cesar Hyman RN, RN Evan 02/03/21 04/12/20 15:04:17 17:13:24 Case Attendance- IR Entry 1 Entry 2 Entry 3 Case Attendee VIRAL MANUEL MD, Terra L Rad Patton, RN Deborah E Tech Role Performed Radiologist Procedure Scrub Technologist Procedure Nurse Details Time In 07/04/22 12:25:00 07/04/22 12:15:00 07/04/22 12:15:00 Time Out 07/04/22 12:47:00 07/04/22 13:00:00 07/04/22 13:00:00 Procedure/Preference IR Neph Cath-Neph IR Neph Cath-Neph IR Neph Cath-Neph Card Ureter W/Guide Left SN Ureter W/Guide Left SN Ureter W/Guide Left SN Last Modified By: Sam Juinor Rad Tech Kathy Bollon, Rad Tech Kathy A 07/04/22 12:51:23 A 07/04/22 12:52:44 A 07/04/22 12:54:01 Entry 4 Case Attendee Sam Junior Role Performed Circulating Technologist Details Time In 07/04/22 12:38:00 Time Out 07/04/22 13:00:00 Procedure/Preference IR Neph Cath-Neph Card Ureter W/Guide Left SN Last Modified By: Sam Junior 07/04/22 12:53:36 Radiology Procedures- IR Entry 1 Procedure/Preference IR Neph Cath-Neph Actual Procedure IR NEPH CATH-NEPH Card Ureter W/Guide Left SN URETER W/ GUIDE LEFT SN Primary Procedure Yes Primary Surgeon VIRAL MANUEL MD Anesthesia/Sedation Local, IV Sedation Type Additional Procedure Times Start 07/04/22 12:25:00 Stop 07/04/22 12:47:00 Specialty Service SN Radiology Procedure EBL 0 mL Last Modified By: Sam Junior 07/04/22 12:57:11 Radiology Procedure Details - IR Entry 1 Radiology Sedation Case Times Sedation Start Time 07/04/22 12:29:00 Sedation Stop Time 07/04/22 12:47:00 Sedation Total Time 18 min Radiology - Fluid/Drainage Radiology Contrast Contrast Used? Yes Dose 10 mL Radiology Flouroscopy Fluoroscopy Used? Yes Fluoro Dose (mGy) 13.76 Fluoro Time 0.9 min Radiology Local Local Type: 1% Lidocaine Local Dose 10 ml Radiology Procedure Site Site/Location lt renal Site Condition No complications Dressing Type Bioclusive 4 X 5, Gauze Technologist Notes 8.5F x 26cm Boston sponge 4 X 4 Nephroureterostomy Stent lot#[id number] LT Renal Last Modified By: JAMAL Lindsey 07/04/22 13:56:46 General Case Data - IR Entry 1 Case Information Room AH IR 18 Case Level IR Level 2 Wound Class None Specialty SN Radiology Procedure ASA Class None Diagnosis Preop Diagnosis cerival cancer Postop Same As Preop Yes Postop Diagnosis cerival cancer Last Modified By: Sam Junior 07/04/22 12:56:49 Medication Administration- IR Entry 1 Entry 2 Entry 3 Medication Versed Benadryl Dilardid Time Administered 07/04/22 12:29:00 07/04/22 12:30:00 07/04/22 12:32:00 Route of Admin IV Push IV Push IV Push Dose 1 mg 50 mg 1 mg Volume VORB * *Verbal Order Read Back (VORB) is required for NON- PHYSICIAN administration of medications. Administered by No No No Physician? Administered by: JAMAL Lindsey RN Deborah E Patton, RN Deborah E Verbal Order Read VIRAL MANUEL MD, JAMES MD BUCHINO, JAMES MD Back from: Last Modified By: JAMAL Lindsey RN Deborah E Patton, RN Deborah E 07/04/22 13:06:17 07/04/22 13:06:17 07/04/22 13:06:17 Procedure Case Times- IR Entry 1 Patient In Procedure Patient In OR 07/04/22 12:15:00 Patient Out of OR 07/04/22 13:00:00 Procedure Start/Stop Procedure Start Time 07/04/22 12:25:00 Procedure Stop Time 07/04/22 12:47:00 Last Modified By: Sam Junior 07/04/22 12:51:46 Immediate Post Procedure Note - IR Entry 1 Immediate Post Yes Procedure Note displayed for Physician to review Closure Technique Closure Technique Other than Primary Last Modified By: Sam Junior 07/04/22 12:49:27 Immediate Post Procedure Note - IR Signed By: VIRAL MANUEL MD 07/04/22 12:49 No Complications Allergy Information- IR Entry 1 Allergies Reviewed? Yes Allergies Reviewed Other With Last Modified By: Sam Junior 07/04/22 12:49:35 Radiology Protocols/Time Out- IR Entry 1 Preprocedure Clinician Verifies Correct patient ID When Clinically Confirmation of correct using name & date Indicated side(s) and site(s), or MRN, Accurate Correct diagnostic and procedure, complete radiology tests Informed Consent, H & P available update immediately prior to procedure, if applicable OR/Procedure Room/Bedside Time 07/04/22 12:25:00 Clinician Verifies Correct patient identity including EMR & records using name and date or medical record number, Accurate procedure consent form, Correct patient position, Necessary equipment is available When Applicable Confirmation correct Team Members VIRAL MANUEL MD, side and site marked, Present for Time Out Patti Johnson Relevant images and César Oglesby RN results are properly Gail Phillips, Sam Junior labeled and Mendel Fortune A appropriately displayed, Double verification of sterility indicators complete Instrument Sterility Procedure IR Neph Cath-Neph Ureter W/Guide Left SN Last Modified By: Sam Junior Tech Devika A 07/04/22 12:54:50 Skin Prep- IR Entry 1 Procedure IR Neph Cath-Neph Ureter W/Guide Left SN Skin Prep Prep Area Back Side Left By Patti Johnson Prep Agents Betadine Solution Tech Hair Removal Method N/A Last Modified By: Sam Junior Devika A 07/04/22 12:55:26 Patient Positioning- IR Entry 1 Procedure IR Neph Cath-Neph Body Position OP Prone Ureter W/Guide Left SN Feet Uncrossed? Yes Pressure Points Yes Checked Last Modified By: Sam Junior Tech Devika A 07/04/22 12:55:41 Radiology Procedure Plan - IR Entry 1 Radiology - Nursing Care Plan Outcome Statement The patient Outcome Statement The patient receives demonstrates knowledge Cont. appropriate of the expected medication(s), safely responses to the administered during the operative/invasive perioperative/invasive procedure., The period., The patient is patient's value system, free from signs and lifestyle, ethnicity, symptoms of injury and culture are caused by extraneous considered, respected, objects (equipment, and incorporated in the instrumentation, perioperative plan of sponges, or sharps)., care., The patient is The patient is free free from signs and from signs and symptoms symptoms of infection., of electrical injury. The patient is free from signs and symptoms of injury related to positioning. Radiology - Action Plan Outcomes Met? Yes Mottler Operator JAMAL Lindsey Completing Procedure Plan Last Modified By: JAMAL Lindsey 07/04/22 13:08:30 Transfer Post Procedure- IR Entry 1 RAD - Transport to Recovery Patient Transported IV Via Stretcher With Post-op Destination Receiving Transported By JAMAL Lindsey Post Procedure Time Out Double Verification Yes Date/Time Verified 07/04/22 12:15:00 of ID band on patient Completed Verfied ID Band on JAMAL Lindsey by Last Modified By: Sam Junior Mendel Fortune lAice 07/04/22 13:00:26 Case Comments Finalized By: JAMAL Lindsey Document Signatures Signed By: JAMAL Lindsey 07/04/22 13:57 [id number] Discharge instructions Patient Education 07/04/2022 11:35:17 Radiology- Nephrostomy Tube Insertion(CUSTOM) SAVANNAH Nephrostomy Tube Insertion Discharge Instructions Interventional Radiology [facility] [address] [place] [address] The procedure that you had done today is called a percutaneous nephrostomy. A catheter was placed in your back to access the urine collecting system in your kidney. This catheter will drain the urinefrom the affected kidney. You may also urinate in the normal manner from both the affected and unaffected kidney. Your urine may be blood tinged, in the bag and from regular urination, for up to 48 hours. You may have been given IV sedation during your procedure, and a local anesthetic to numb your skin. You may feel some discomfort after the local anesthetic wears off. This should gradually improve over the next several days. Diet: Resume your normal diet. Start with clear liquids; gradually add other foods as tolerated. Drink extra fluids while the catheter is in place (6-8 glasses a day). Activity: Rest for the remainder of the day. Someone must drive you home. Pain Control: Mild back discomfort on the side of the tube placement may occur for the first 24 hours and you mayexperience the feeling of needing to urinate. Rqiw-bfj-naaqlcx pain medication should be used for pain or discomfort. Please check with the physician who sent you for this procedure for their specific recommendations. If your pain is not relieved or becomes more severe, notify the physician who sent you for this procedure. If you were sedated for this procedure: Avoid alcoholic beverages for 24 hours after your procedure. Do not drive or operate heavy machinery for 24 hours after your procedure. Do not make any legal decisions for 24 hours after your procedure. Medication: Please resume home medications today as scheduled. Nephrostomy Care: Wash your hands well with soap and water before and after caring for your nephrostomy tube. Keep the skin around the nephrostomy bag dry. If the area does get wet, dry the skin completely. Avoid swimming. You may shower with the nephrostomy bag attached to the skin, sit in a shallow bath, or sponge bathe while the catheter is in place. Be sure to keep the water level below the dressingwhen tub bathing. The physician who sent you here for this procedure should have supplied you with a prescription fornephrostomy supplies. Please refer to the accompanying instructions to fill the prescription or youcan check with your pharmacy of choice and see if they can get these items for you. Change the flexible wafer and the urostomy pouch every week, or as needed if it is leaking. Keep all ports of the urostomy pouch and drainage bag as clean as possible to prevent infection. Empty the drainage bags often. Avoid overfilling. If the nephrostomy tube is needed for an extended amount of time, it is recommended that the tube be replaced by a radiologist after 8 to 10 weeks. The physician who ordered the nephrostomy tube for you will provide you with specific instructions. Optional, depending on Radiologist s recommendations: During the day, you may attach the urostomy pouch to a leg bag using extension tubing to make it easier to drain the bag by yourself. At night, you may attach the urostomy pouch to a large night time drainage bag so that the bag willnot need emptied as often. When to Seek Medical Care: The tube falls out. Decreased urine output or no urine output. Abnormal bleeding. Foul odor or drainage, redness, swelling, or fever. Worsening pain If you experience any of these issues during the first 24 hours, please follow the instruction below: 8:00 am- 5:00 pm call [phone] After 5:00 pm call [phone] After 24 hours, contact the physician who ordered this procedure for you. 07/04/2022 11:34:21 Moderate Conscious Sedation, Adult, Care After Moderate Conscious Sedation, Adult, Care After These instructions provide you with information about caring for yourself after your procedure. Your health care provider may also give you more specific instructions. Your treatment has been plannedaccording to current medical practices, but problems sometimes occur. Call your health care provider if you have any problems or questions after your procedure. What can I expect after the procedure? After your procedure, it is common: To feel sleepy for several hours. To feel clumsy and have poor balance for several hours. To have poor judgment for several hours. To vomit if you eat too soon. Follow these instructions at home: For at least 24 hours after the procedure: Do not: ?Participate in activities where you could fall or become injured. ?Drive. ?Use heavy machinery. ?Drink alcohol. ?Take sleeping pills or medicines that cause drowsiness. ?Make important decisions or sign legal documents. ?Take care of children on your own. Rest. Eating and drinking Follow the diet recommended by your health care provider. If you vomit: ?Drink water, juice, or soup when you can drink without vomiting. ?Make sure you have little or no nausea before eating solid foods. General instructions Have a responsible adult stay with you until you are awake and alert. Take xnrs-cgj-nduttdp and prescription medicines only as told by your health care provider. If you smoke, do not smoke without supervision. Keep all follow-up visits as told by your health care provider. This is important. Contact a health care provider if: You keep feeling nauseous or you keep vomiting. You feel light-headed. You develop a rash. You have a fever. Get help right away if: You have trouble breathing. This information is not intended to replace advice given to you by your health care provider. Make sure you discuss any questions you have with your health care provider. Document Released: 08/10/2014 Document Revised: 10/02/2018 Document Reviewed: 02/08/2017 [employer] Patient Education 2020 [employer]. Follow Up Care 05/23/2022 11:54:48 With:FLIP MARTIN MD Address: [phone] When: Unknown Comments:Follow-up as scheduled [facility] 09-01-2022 Note INTERVENTIONAL RADIOLOGY POST PROCEDURE NOTE DATE: 07/04/2022 13:14:19 NAME: LALY NAVAS Pre-Procedure Diagnosis: Left ureteral obstruction. Post Procedure Diagnosis: Same. Pathology Supervisor: Dr. Viral Manuel Procedure: Left nephroureteral catheter exchange. Anesthesia: Procedural sedation. Findings: Success. Estimated Blood Loss: Minimal (Less Than 10 mL). Specimen: None. Complications: None. Full report with procedural details to follow and will become available under the Radiology tab of Results Review. Please contact for any questions or concerns. Viral Manuel MD Interventional Radiology Pager: [phone] Digitally Signed by VIRAL MANUEL MD on 07/04/2022 01:14 PM [id number] Summary of episode note Discharge Instructions Thank you for allowing [facility] to assist you with your healthcare needs. The following is importantdischarge information regarding your hospital visit. Your Care Team FLIP MARTIN MD What to do next Scheduled Follow-Up Appointments Appointment Type When With Where Contact InformationSO OV Follow Up 01/01/2023 11:30 AM EST FLIP MARTIN MD [facility] Follow Up Appointments Follow Up with FLIP MARTIN MD When Why: Follow-up as scheduled Where: [phone] Allergies codeine penicillin Medications Please ask your primary doctor or pharmacist before taking any other medication not listed, including over the counter drugs, herbal medications, vitamins and or supplements as they may interact withyour home medications. What How Much When Why Instructions Last Dose Unchanged acetaminophen (Tylenol 325 mg oral capsule) 650 Milligram by mouth Every 4 hours as needed for Pain, scale 1-3 Unchanged acetaminophen-oxyCODONE (acetaminophen-oxyCODONE 325 mg-5 mg oral tablet) 1 tab(s) by mouth Every 6 hours as needed for for pain Cervical ca Cancer related pain Duration: 30 Days Unchanged LORazepam (Ativan 1 mg oral tablet) 1 tab(s) by mouth Three (3) times a day as needed for as needed for anxiety Cervical cancer Anxiety Duration: 30 Days Unchanged OLANZapine (OLANZapine 5 mg oral tablet) 1 tab(s) by mouth Daily at bedtime Unchanged ondansetron (Zofran 4 mg oral tablet) 1 tab(s) by mouth Every 6 hours as needed for Nausea/Vomiting Duration: 30 Days Take 20-30 minutes prior to taking pain medication Unchanged sodium chloride (Normal Saline Flush 0.9% injectable solution) 10 Milliliter IR Drain Every day Please take this list to your next doctor s visit. Bring all medications you take, including over the counter medications, herbals and other supplements with you to your doctor s visit. Patients and families are reminded to discard old lists and to update any records with all medication providers or retail pharmacies. Education Materials SAVANNAH Nephrostomy Tube Insertion Discharge Instructions Interventional Radiology [facility] [address] [place] [address] The procedure that you had done today is called a percutaneous nephrostomy. A catheter was placed in your back to access the urine collecting system in your kidney. This catheter will drain the urinefrom the affected kidney. You may also urinate in the normal manner from both the affected and unaffected kidney. Your urine may be blood tinged, in the bag and from regular urination, for up to 48 hours. You may have been given IV sedation during your procedure, and a local anesthetic to numb your skin. You may feel some discomfort after the local anesthetic wears off. This should gradually improve over the next several days. Diet: Resume your normal diet. Start with clear liquids; gradually add other foods as tolerated. Drink extra fluids while the catheter is in place (6-8 glasses a day). Activity: Rest for the remainder of the day. Someone must drive you home. Pain Control: Mild back discomfort on the side of the tube placement may occur for the first 24 hours and you mayexperience the feeling of needing to urinate. Nhoc-ubr-dyotkfa pain medication should be used for pain or discomfort. Please check with the physician who sent you for this procedure for their specific recommendations. If your pain is not relieved or becomes more severe, notify the physician who sent you for this procedure. If you were sedated for this procedure: Avoid alcoholic beverages for 24 hours after your procedure. Do not drive or operate heavy machinery for 24 hours after your procedure. Do not make any legal decisions for 24 hours after your procedure. Medication: Please resume home medications today as scheduled. Nephrostomy Care: Wash your hands well with soap and water before and after caring for your nephrostomy tube. Keep the skin around the nephrostomy bag dry. If the area does get wet, dry the skin completely. Avoid swimming. You may shower with the nephrostomy bag attached to the skin, sit in a shallow bath, or sponge bathe while the catheter is in place. Be sure to keep the water level below the dressingwhen tub bathing. The physician who sent you here for this procedure should have supplied you with a prescription fornephrostomy supplies. Please refer to the accompanying instructions to fill the prescription or youcan check with your pharmacy of choice and see if they can get these items for you. Change the flexible wafer and the urostomy pouch every week, or as needed if it is leaking. Keep all ports of the urostomy pouch and drainage bag as clean as possible to prevent infection. Empty the drainage bags often. Avoid overfilling. If the nephrostomy tube is needed for an extended amount of time, it is recommended that the tube be replaced by a radiologist after 8 to 10 weeks. The physician who ordered the nephrostomy tube for you will provide you with specific instructions. Optional, depending on Radiologist s recommendations: During the day, you may attach the urostomy pouch to a leg bag using extension tubing to make it easier to drain the bag by yourself. At night, you may attach the urostomy pouch to a large night time drainage bag so that the bag will not need emptied as often. When to Seek Medical Care: The tube falls out. Decreased urine output or no urine output. Abnormal bleeding. Foul odor or drainage, redness, swelling, or fever. Worsening pain If you experience any of these issues during the first 24 hours, please follow the instruction below: 8:00 am- 5:00 pm call [phone] After 5:00 pm call [phone] After 24 hours, contact the physician who ordered this procedure for you. Moderate Conscious Sedation, Adult, Care After These instructions provide you with information about caring for yourself after your procedure. Your health care provider may also give you more specific instructions. Your treatment has been plannedaccording to current medical practices, but problems sometimes occur. Call your health care provider if you have any problems or questions after your procedure. What can I expect after the procedure? After your procedure, it is common: To feel sleepy for several hours. To feel clumsy and have poor balance for several hours. To have poor judgment for several hours. To vomit if you eat too soon. Follow these instructions at home: For at least 24 hours after the procedure: Do not: ? Participate in activities where you could fall or become injured. ? Drive. ? Use heavy machinery. ? Drink alcohol. ? Take sleeping pills or medicines that cause drowsiness. ? Make important decisions or sign legal documents. ? Take care of children on your own. Rest. Eating and drinking Follow the diet recommended by your health care provider. If you vomit: ? Drink water, juice, or soup when you can drink without vomiting. ? Make sure you have little or no nausea before eating solid foods. General instructions Have a responsible adult stay with you until you are awake and alert. Take hwtc-pde-dlosgft and prescription medicines only as told by your health care provider. If you smoke, do not smoke without supervision. Keep all follow-up visits as told by your health care provider. This is important. Contact a health care provider if: You keep feeling nauseous or you keep vomiting. You feel light-headed. You develop a rash. You have a fever. Get help right away if: You have trouble breathing. This information is not intended to replace advice given to you by your health care provider. Make sure you discuss any questions you have with your health care provider. Document Released: 08/10/2014 Document Revised: 10/02/2018 Document Reviewed: 02/08/2017 [employer] Patient Education 2020 [employer]. Additional Information VACCINATE! IT SAVES LIVES! Members of the community who have not yet received the COVID-19 vaccine and would like to receive it can visit one of [facility] vaccine clinics. There are many vaccine clinic locations within the [facility]. For locations and available times, please visit [email or web address] It is important to note that some COVID mobile vaccine clinics are held outdoors and may be canceled in rainy or stormy conditions. To learn more about pediatric vaccinations (ages 5-11), we invite you to visit the [facility] webpage. [email or web address] [email or web address] learn more about the COVID-19 vaccine, we invite you to visit the [facility] website for a list of frequently asked questions. [email or web address] [email or web address] _[email or web address].pdf [facility] [employer] Patient Portal Access Instructions: Stay connected with your healthcare team and access your personal medical information anytime with the [facility] Patient Portal.If you would like a full copy of your medical records, please contact the [facility] Medical Records Department, Friday through Friday between 8a.m. and 4:30p.m. Please follow the directions below to access the portal: 1.Access the email account you provided upon registration to the [facility].2.Look for an invitation email from [facility].3.Open the email and access the invitation link: Accept Invitation to [facility]4.Fill in the required quintero to create your account. Sign into [email or web address] with your username and password that you created in the above steps to stay up to date. You can then view a summary of results, a summary of your visits, and the ability to download your summaries to your computer or send the information securely to a physician. Remember that your healthcare information is confidential, so carefully consider who you will allow to register on the [facility] Patient Portal for access to your information. You can also access the [facility] Patient Portal on the [employer]. Simply click on Health Records under [place] and then click on the [facility] logo. HOW TO SAFELY DISPOSE OF PRESCRIPTION MEDICATIONS Please use one of the following methods to safely dispose of your unused medications. 1.Use a drug disposal kit: the drug disposal pouch allows you to safely discard your old and unuseddrugs. Ask your nurse to give you one when you are discharged.2.Visit a local take-back location: Many local pharmacies and police departments have programs that collect old and unwanted prescriptiondrugs. Call your local pharmacy or go to http://Wishabi.ConsumerBell/8S1Fc6i to find one close to you.3.Make use of household items: Use cat litter or old coffee grounds to dispose medications if other options arenot available. Mix your drugs with these household products, seal them in an airtight container andthrow it into the garbage. Call [facility]: [phone] to be sure your drugs can be disposed of in this way. Some medicines may require a different approach.4.Never flush your medications down the toilet. IF YOU HAVE BEEN PRESCRIBED AN OPIOID FOR PAIN If you have been prescribed an opioid (such as hydrocodone, oxycodone or morphine), it is critical to understand the possible side effects and risks of opioid pain medications. Even when taken as directed, opioids can have several side effects including: Tolerance, meaning you might need to take more of a medication for the same pain relief. Nausea, vomiting and/or constipation. Sleepiness, dizziness, dry mouth, confusion, depression or itching. Physical dependence, meaning you have withdrawal symptoms when a medication is stopped, can develop within a few days. KNOW YOUR RESPONSIBILITIES It is important to know exactly how much and how often to take the opioid pain medications you are prescribed. Never take opioids in higher amounts or more often than prescribed. Do not combine opioids with alcohol or other drugs that cause drowsiness, such as benzodiazepines, also known as benzos, including diazepam and alprazolam, muscle relaxants or sleep aids. Never sell or share prescription opioids. This is illegal. Store opioids in a secure place and out of reach of others (including children, family, friends and visitors). The last page of this document has been signed and retained as a CHART COPY. Signatures Patient Education Materials Radiology- Nephrostomy Tube Insertion(CUSTOM) Moderate Conscious Sedation, Adult, Care After Medication Leaflets My discharge plan and instructions have been reviewed and explained to me and I,LALY NAVAS understand my current condition and have read and understand these discharge instructions. I have received a written copy of the plan/instructions. If I have questions, I am aware that I should contact my doctor. 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 Last tube exchange was 05/23/2022 Allergies (2) ActiveReaction codeineNone Documented penicillinNone Documented Home Medications (6) Active acetaminophen-oxyCODONE 325 mg-5 mg oral tablet 1 tab(s), PRN, Oral, q6hr Ativan 1 mg oral tablet 1 mg = 1 tab(s), PRN, Oral, TID Normal Saline Flush 0.9% injectable solution 0.09 gram(s) = 10 mL, IR Drain, Daily OLANZapine 5 mg oral tablet 5 mg = 1 tab(s), Oral, qHS Tylenol 325 mg oral capsule 650 mg, PRN, Oral, q4h Zofran 4 mg oral tablet 4 mg = 1 tab(s), PRN, Oral, q6h Problem List/Past Medical History Acute kidney injury Anxiety Asthma Bradycardia Cervical cancer Complicated UTI (urinary tract infection) DVT prophylaxis Decreased appetite Dehydration History of chemotherapy History of radiation therapy Left flank pain Moderate protein-calorie malnutrition Nausea and vomiting Nephrostomy status Obstructive uropathy Port-A-Cath in place Tobacco use Surgical History Nephrostomy with tube drainage: 01/10/21 JJ stent: 11/15/20 Radiation: 06/2020 Cervical biopsy: 2019 Tumor cells, benign: 2001 Cannulation of Portacath Nephrostomy with tube drainage Family History Mother: Asthma; Breast cancer; COPD - Chronic obstructive pulmonary disease; Heart attack; Heart disease; Hypertension; Kidney stone Father: Alcohol abuse; Stroke; Substance abuse Sister: Cancer Grandparent: Diabetes; Stroke Social History Alcohol Risk Assessment: Denies Alcohol Use; Details: Use: Current. Type: Beer. Frequency: 1-2 times per week. Home/Environment Risk Assessment: No Risk; Details: Domestic Concerns: None. Living situation: Home/Independent. Safe place to go: Yes. Lives In: Mobile home, 1st floor bedroom, 1st floor bathroom. Current Home Treatments None. Professional Skilled Services or Special Community Resources None. Financial concerns: No. Marital Status: Unmarried. Nutrition/Health Risk Assessment: No Risk; Details: Type of diet: Regular. Appetite Fair. Eating Difficulties None. Caffeine intake amount: 1 can pop per day. Sexual Details: Sexually active: Yes. First active at age: 18 Years. Current partners: 1. Number of lifetime partners: 7. Self described orientation: Straight or heterosexual. Other contraceptive use: condoms. History of sexual abuse: No. Gender Identity: Identifies as female. Substance Abuse Risk Assessment: Denies Substance Abuse; Details: Use: Never. Tobacco Details: Nicotine Use: 5-9 cigarettes (between 1/4 to 1/2 pack)/day in last 30 days. Type: Cigarettes. Tobacco use per day: 10. Number of years: 10. Started at age: 19 Years. Previous treatment: None. Ready to change: Yes. Physical Exam Vitals: [id number] (10:37) Systolic Blood PressureNo result Diastolic Blood PressureNo result Pulse88 (10:37) FeT038 (10:37) Respiratory Rate18 (10:37) General: Alert, cooperative. Lungs CTAB Heart RRR The remainder of the physical exam is noncontributory. Labs Anticoagulation Labs No qualifying data available. Last Month UA Appear: Cloudy (07/03/22) UA Bacteria: 4+ (07/03/22) UA Bili: Negative (07/03/22) UA Blood: Moderate (07/03/22) UA Color: Yellow (07/03/22) UA Glucose: Negative (07/03/22) UA Ketones: Negative (07/03/22) UA Leuk Est: Large (07/03/22) UA Nitrite: Positive (07/03/22) UA pH: 7.0 (07/03/22) UA Protein: 100 (07/03/22) UA RBC: 0-2 (07/03/22) UA Spec Grav: 1.010 (07/03/22) UA Specimen Type: Clean Catch (07/03/22) UA Squam Epithelial: 0-2 (07/03/22) UA Urobilinogen: 0.2 (07/03/22) UA WBC: 25-50 (07/03/22) Assessment/Treatment Plan Left nephroureteral catheter exchange. Post Procedure Discharge Plan Patient to be discharged home. _ Digitally Signed by SIMRAN GRANADOS PA-C on 07/04/2022 11:15 AM Digitally Signed by VIRAL MANUEL MD on 07/04/2022 01:35 PM [id number] [facility] Discharge instructions Patient Education 04/19/2022 16:08:04 ESBL Infection Information ESBL Infection Information ESBL is an enzyme that is made by some types of bacteria. This enzyme breaks down some antibiotic medicines, making them unable to kill the bacteria or treat the infection. The two most common types of bacteria that make ESBL in the stomach and intestines (gastrointestinal tract, or GI tract) are E. coli and Klebsiella. These types of bacteria help break down food so it can be used by the body for energy. Normally, they do not cause infection unless there are too many bacteria, or unless the bacteria travel to other parts of the body where they are not normally found. ESBL infections are hard to treat. Bacteria that make ESBL are sometimes called super bugs because they are very hard to get rid of. Lab tests must be done to find the type of ESBL bacteria that iscausing the infection and the right antibiotic medicine that will treat it. What increases my risk of an ESBL infection? You may be more likely to develop an ESBL infection if you: Are currently or have recently been a patient in a hospital, halfway, or another care facility. Have another illness or a weakened disease-fighting system (immune system). Have drains or tubes placed in your body. Have used antibiotics in the past. Have sores or open wounds. How do I get an ESBL infection? ESBL bacteria can live outside the body on the skin or other surfaces. People who are infected withESBL bacteria may shed the bacteria in their stool or body fluids such as urine or blood. These bacteria can be spread to surfaces such as bed linens, medical equipment, countertops, and bathroom fixtures. The bacteria can also be spread by direct contact when health care providers touch skin or body fluids that are infected. How is an ESBL infection diagnosed? You may have an exam or lab testing. You may have a blood, urine, or stool sample taken. Samples can be looked at under a microscope by trained health care providers who can identify the type of bacteria that is growing in the sample. These samples can also be tested to see if certain antibiotic medicines can kill the bacteria. Can ESBL infections be treated? ESBL infections can be treated after the right antibiotic medicine is found that can kill the bacteria. Antibiotic medicines may be given at home or in the hospital. Some antibiotic medicine can be taken by mouth, and others need to be given through an IV. What are some things that hospitals are doing to prevent ESBL infections? To prevent the spread of ESBL infections, health care providers will: Wash their hands with soap and water or an alcohol-based hand moshgiach before they enter your roomand before they leave your room. Clean and disinfect your room and the medical equipment that is being used for your care. Put a sign on your door to let visitors and health care providers know to use contact precautions when they care for you. This means health care providers will: ?Put you in a private room. ?Put on a gown with long sleeves and wear gloves when they care for you, then remove the gloves andgown before leaving your room. ?Ask your visitors to wear a gown and gloves, if the visitors plan to help care for you. ?Ask your visitors to wash or sanitize their hands before entering and before leaving your room. ?Ask you not to leave your room to visit other areas of the hospital. What can I do to help prevent ESBL infections? You can help to prevent the spread of ESBL bacteria by: Reminding health care providers, cleaning staff, and visitors to wash their hands with soap and water or an alcohol-based hand moshgiach before they enter your room and before they leave your room. Taking antibiotics exactly as prescribed by your health care provider. Washing your hands with soap and water or an alcohol-based hand moshgiach after: ?Using the bathroom. ?Touching or coming in contact with your stool or body fluids. ?Touching medical equipment or surfaces that may have come in contact with your stool or body fluids. ?Touching or caring for wounds or open sores. ?Touching or caring for tubes or drains that are placed in your body. Can my visitors get ESBL? Visitors are at risk for infection if they come in contact with unclean surfaces or equipment, or with your stool or body fluids while in your room. The risk of infection is higher if visitors then touch openings in their own bodies, such as their mouth or a sore. Doing that can allow the bacteria to enter their bodies. Casual contact, such as hugging or touching, will not spread ESBL. Summary ESBL is an enzyme that is made by some types of bacteria. ESBL infections are hard to treat. Lab tests must be done to find the type of ESBL bacteria that iscausing the infection and the right antibiotic medicine that will treat it. Bacteria that make ESBL are sometimes called super bugs because they are very hard to get rid of. One of the best ways to stop the spread of infection with ESBL is to wash your hands often with soap and water or an alcohol-based hand moshgiach, especially after using the bathroom. This information is not intended to replace advice given to you by your health care provider. Make sure you discuss any questions you have with your health care provider. Document Released: 11/22/2017 Document Revised: 10/02/2018 Document Reviewed: 11/22/2017 [employer] Patient Education 2020 [employer]. Follow Up Care 04/14/2022 22:01:45 With:A referral has been made to [facility] for additional resources. Address: When: Unknown With:MARGOTH RUVALCABA BA, MD, Infectious Disease, Infectious Disease Group Address: [facility] [address] [place] [address]- When: Unknown Comments:Please call for a follow up appointment within 2 weeks With:[facility] - [phone] Address: When: Unknown With:[facility] - [phone]. Please go to [facility] for labs to be drawn and Port dressing change. APPT scheduled: SUNDAY 04/22 @ 11:00 AM. (Main entrance; Registration on left) Address: When: Unknown With:FLIP MARTIN MD Address: [address] [place] [address] [phone] When:05/30/2022 14:50:00 [facility] 06-13-2022 Evaluation + Plan noteExtracted from: Title:History and Physical Author:NICKY SOTELO MD Date:04/15/22 1. Urinary tract infection -1 day of n/v, 24hours of inability to urinate, however making good urine in L nephrostomy - CT a/p showed fullness of left ureter -clear urine in bag, Nephrostomy recently changed on 04/11, nephrostomy care EOD - strict i/o - NS 125, Urine culture of nephrostomy tube and void pending - will start on merem at this time as her previous culture was sensitive to this 2. Anxiety - mood stable during interview - lorazepam TID PRN Ordered: 3. Cervical cancer -Stage 3b SCC of cervix -S/p Chemoradiation -Oxycodone for pain control with Dilaudid IV for breakthrough Ordered: 4. Duodenitis - protonix qd 5. DVT prophylaxis - SCDs at this time 6. Tobacco use - current smoker, nicotine patch available upon request Code: full IVF: NS 125 UOP: spontaneous/L nephrostomy, stric i/o Abx: Merem Diet: Regular PPx: SCDs, protonix 31yo h/o cervical cancer with L nephrostomy tube, admitted for pain control and UTI. The pain that patient describes does not appear to be much different from the chronic pain that she expresses that she has. She was most concerned about the lack of urination, despite good output from neprhostomy tube. Dispo: IV abx, await urine culture and sensitivites Patient was discussed with senior resident. Any changes will be addended to this note. This document was transcribed using a voice recognition software and may contain typographical errors. 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 Patient has history of recurrent urinary tract infections. A UA was collected at [address] [place] [address] and was positive for nitrates. Patient has been and remains afebrile, WBC 11.0, patient was previously on ciprofloxacin and was transitioned to Bactrim today [facility] however did not take any of this medication yet, she received Rocephin at [facility] and we will switch her to meropenem due to previous sensitivities. Patient has left nephrostomy tube with clear yellow urine. She states that she emptied her nephrostomy tube for 600 cc of clear yellow urine today. A CT scan was obtained to [facility] which showed slightly dilated left ureter and duodenitis. Plan as above. Discussed with Dr. Martin who agrees with plan. Addendum by SASHA MON on April 15, 2022 06:43:14 EDT Subjective: Patient seen and examined this morning on rounds, endorses pain in kidney, unable to urinate well. Just voided for the first time in 24 hrs per patient. Having some nausea but no vomiting. Urinating spontaneously and neph tube in place, however endorses burning with urination. Ambulating without difficulty. Passing flatus. Denies headache, fever/chills, chest pain, shortness of breath, nausea, vomiting, and calf pain. Vitals Signs(Last 24 hrs)__ Last Charted Minimum Maximum Temp 36.7(APR 15:20) 36.7(APR 15:) 36.8(APR 14:) Resp Rate 18(APR 15:) 18(APR 14:) 18(APR 14:) SBP 100(APR 15:20) 100(APR 15:20) H 149(APR 14:) DBP 69(APR 15:) 69(APR 15:) H 95(APR 14:) Physical exam: General Appearance: resting on room air laying in bed Head: Atraumatic normocephalic EENT: Moist mucous membranes Cardiopulmonary: Breathing easily on room air, no cyanosis, wheezing, accessory muscle use Abdomen: Soft and nondistended with no rebound tenderness or guarding. + bowel sounds. Mild suprapubic tenderness. Nephrostomy tube site non-erythematous, moderate tenderness to palpation. Musculoskeletal: Moving extremities appropriately. Extremities: Warm, minimal edema Neurological: Alert and oriented x3 Psychiatric: Appropriate affect A/P: 1. Urinary tract infection -1 day of n/v, 24hours of inability to urinate but has since voided. Endorses burning with urination. Good output in L nephrostomy. - CT a/p showed fullness of left ureter -clear urine in bag, Nephrostomy recently changed on 04/11 however per pt states tube had not been changed for 5 months, nephrostomy care EOD - strict i/o - NS 125, Urine culture of nephrostomy tube and void pending - will start on merem at this time as her previous culture was sensitive to this - Awaiting urine cultures collected at [facility], will follow up on throughout the week 2. Anxiety - stable - lorazepam TID PRN 3. Cervical cancer -Stage 3b SCC of cervix -S/p Chemoradiation -Oxycodone for pain control with Dilaudid IV for breakthrough 4. Duodenitis - protonix qd 5. DVT prophylaxis - SCDs at this time 6. Tobacco use - current smoker, nicotine patch available upon request Code: full IVF: NS 125 UOP: spontaneous/L nephrostomy, strict i/o Abx: Merem Diet: Regular PPx: SCDs, protonix 31yo h/o cervical cancer with L nephrostomy tube, admitted for pain control and UTI. Dispo: Urine output reassuring. VSS. Pain control. Continue meropenem, await urine culture and sensitivities. Addendum by BRITTNI LU-HAZARDOUS WASTE REMOVER on April 15, 2022 11:03:55 EDT This morning patient's major complaint is nausea. She is on meropenem for her complicated UTI, and repeat urine culture preliminarily are showing E. coli from the nephrostomy. We will discuss de-escalation of antibiotics to an oral once sensitivity is finalized. Addendum by FLIP MARTIN on April 15, 2022 15:40:06 EDT I personally saw and evaluated the patient on April 15, 2022. I have reviewed the above documentation and clinical decision making and I agree. Temperature Oral: 36.9 DegC Peripheral Pulse Rate: 75 bpm Respiratory Rate: 18 br/min Systolic Blood Pressure: 130 mmHg Diastolic Blood Pressure: 83 mmHg Mean Arterial Pressure: 113 mmHg Reason For Taking VItal Signs: Routine WBC 9.3, hemoglobin 11.4, hematocrit 34.1, platelets 361, ANC 5800. Glucose 89, sodium 140, potassium 3.8, chloride 113, CO2 26, BUN 10.0, creatinine 0.79. Calcium 8.7, magnesium 1.7, phosphorus 3.7. Albumin 2.9, total bili 0.20, alk phos 63, AST 11, ALT less than 7. Urine culture from April 14, 2022 shows greater than 100,000 colony-forming units of E. coli. Sensitivities are still pending. I long conversation today with the patient at the bedside. We reviewed her symptoms in great detail. Discussed the findings on blood work and urine culture. Discussed the need for broad-spectrum IV antibiotics. At this point we will continue meropenem for her UTI. We chose meropenem because it is broad-spectrum and covered the last time she was in the bacteria that was collected. Now so far on the culture all we have back is a speciation. Continue meropenem until we have sensitivities. Nicotine patch. Pain control and nausea control. I answered all of her questions. FLIP MARTIN MD, FACOG Future Appointments Appointment Date:05/23/2022 11:00:00 AM Scheduled Provider: Location:IR Appointment Type:IR Neph Cath-Neph Ureter W/Guide Left Appointment Date:05/30/2022 02:50:00 PM Scheduled Provider:FLIP MARTIN MD Location:[facility] Appointment Type:SO OV Follow Up Future Scheduled Tests Radiology* IR Neph Cath-Neph Ureter W/Guide Left 05/23/22 [facility] 06-09-2022 Hospital Discharge instructions Patient Education 04/11/2022 14:21:02 Radiology- Procedure/Biopsy 02/16/2020 (CUSTOM) [facility] Radiology Procedure/Biopsy Discharge Instructions Interventional Radiology [facility] [address] [place] [address] Today, you had a . This procedure/biopsy was done to help your doctor diagnose and treat the signs and symptoms you have been experiencing. These instructions should be followed after your procedure to reduce the chance of experiencing complications. Please follow the instructions below to reduce the chance of experiencing complications. Diet: Resume your normal diet as tolerated. Drink extra fluids. Activity: Rest for the remainder of the day. You may resume your normal activity tomorrow. You may bathe/shower after 24 hours. Do not soak or submerge site (including swimming or hot tubs) until a scab forms. No heavy lifting, pushing, or straining. Dressing: Check the site for bleeding. Apply pressure to the site if bleeding excessively and call your physician. Change the band aid as needed; it can be removed after 24 hours. Keep the site dry at all times until a scab forms over the site. Pain Control: The puncture site may be sore for 1 to 2 days following the procedure. Kqyn-iwb-lxyvnmd pain medication should be used for pain or discomfort. Please check with the physician who ordered this procedure for you for their specific recommendations. If your pain is not relieved or becomes more severe, notify the physician who sent you for this procedure. If you were sedated for this procedure: Avoid alcoholic beverages for 24 hours after your procedure. Do not drive or operate heavy machinery for 24 hours after your procedure. Do not make any legal decisions for 24 hours after your procedure. Medication: Please resume on . When to seek medical help: Lightheadedness, dizziness, or fainting. Severe pain or swelling. Severe nausea or vomiting. Infection: fever greater than 101 degrees, chills, redness, warmth, swelling, bleeding, or pus frompuncture site. If you experience any of these issues during the first 24 hours, please follow the instruction below: 8:00 am- 5:00 pm call [phone] After 5:00 pm call [phone] After 24 hours, contact the physician who ordered this procedure for you. Obtaining test results: Please make an appointment with your doctor to obtain your test results. They are usually availablewithin 4 to 7 business days. Do not assume everything is normal if you have not heard from your doctor or medical facility. It is important for you to follow up on all of your test results. Special Instructions: Follow Up Care 04/10/2022 10:01:06 With:Follow up with primary care provider Address:Unknown When: Unknown [facility] 05-24-2022 Evaluation + Plan noteExtracted from: Title:IR pre-procedure H&P - left nephroureteral catheter exchange Author:FANI BECKMAN PA-C Date:03/26/22 Interventional Radiology Focused Preprocedure History/Physical Reason for Visit cervical cancer, L neph tube History of Presenting Illness/Planned IR Procedure 31 y.o female with hx cervical cancer s/p radiation and chemotherapy presents for left nephroureteral catheter exchange. Patient states she had one episode of hematuria 2 days ago. Since then, she has been unable to void on her own. She continues to have output from her nephroureteral drain. Has not had hematuria since the one episode two days ago. Admits to chronic left flank pain, but states this is not new and is unchanged since the time of hematuria. Allergies (2) ActiveReaction codeineNone Documented penicillinNone Documented Home Medications (7) Active acetaminophen-oxyCODONE 325 mg-5 mg oral tablet 1 tab(s), PRN, Oral, q6hr Ativan 1 mg oral tablet 1 mg = 1 tab(s), PRN, Oral, TID Normal Saline Flush 0.9% injectable solution 0.09 gram(s) = 10 mL, IR Drain, Daily ondansetron 4 mg oral disintegrating strip 4 mg = 1 film, Oral, q6h Prempro 0.625 mg-2.5 mg oral tablet 1 tab(s), Oral, qDay Tylenol 325 mg oral capsule 650 mg, PRN, Oral, q4h Zofran 4 mg oral tablet 4 mg = 1 tab(s), PRN, Oral, q6h Problem List/Past Medical History Acute kidney injury Anxiety Asthma Bradycardia Cervical cancer Complicated UTI (urinary tract infection) DVT prophylaxis Dehydration History of chemotherapy History of radiation therapy Left flank pain Moderate protein-calorie malnutrition Nausea and vomiting Obstructive uropathy Port-A-Cath in place Tobacco use Surgical History Nephrostomy with tube drainage: 01/10/21 JJ stent: 11/15/20 Radiation: 06/2020 Cervical biopsy: 2019 Tumor cells, benign: 2001 Cannulation of Portacath Nephrostomy with tube drainage Family History Mother: Asthma; Breast cancer; COPD - Chronic obstructive pulmonary disease; Heart attack; Heart disease; Hypertension; Kidney stone Father: Alcohol abuse; Stroke; Substance abuse Sister: Cancer Grandparent: Diabetes; Stroke Social History Alcohol Risk Assessment: Denies Alcohol Use; Details: Use: Current. Type: Beer. Frequency: 1-2 times per week. Home/Environment Risk Assessment: No Risk; Details: Domestic Concerns: None. Living situation: Home/Independent. Safe place to go: Yes. Lives In: Mobile home, 1st floor bedroom, 1st floor bathroom. Current Home Treatments None. Professional Skilled Services or Special Community Resources None. Financial concerns: No. Marital Status: Unmarried. Nutrition/Health Risk Assessment: No Risk; Details: Type of diet: Regular. Appetite Fair. Eating Difficulties None. Caffeine intake amount: 1 can pop per day. Sexual Details: Sexually active: Yes. First active at age: 18 Years. Current partners: 1. Number of lifetime partners: 7. Self described orientation: Straight or heterosexual. Other contraceptive use: condoms. History of sexual abuse: No. Gender Identity: Identifies as female. Substance Abuse Risk Assessment: Denies Substance Abuse; Details: Use: Never. Tobacco Details: Nicotine Use: 5-9 cigarettes (between 1/4 to 1/2 pack)/day in last 30 days. Type: Cigarettes. Tobacco use per day: 10. Number of years: 10. Started at age: 19 Years. Previous treatment: None. Ready to change: Yes. Physical Exam Vitals: Doshmzqhbgh15.7 (11:47) Systolic Blood PressureNo result Diastolic Blood PressureNo result Pulse76 (11:47) BvR260 (11:47) Respiratory Rate18 (11:47) General: Alert, cooperative. Heart: RRR Lungs: CTA bilaterally The remainder of the physical exam is noncontributory. Labs Anticoagulation Labs No qualifying data available. No qualifying data available. Assessment/Treatment Plan Image guided left nephroureteral tube exchange Post Procedure Discharge Plan Patient to be discharged home. Fani Beckman PA-C Interventional Radiology Pager: [phone] IR dept: x [phone] Available on [employer] Future Appointments Appointment Date:05/30/2022 02:50:00 PM Scheduled Provider:FLIP MARTIN MD Location:[facility] Appointment Type:SO OV Follow Up [facility] 02-18-2022 Evaluation + Plan noteExtracted from: Title:IR pre-procedure H&P - LEFT nephrostomy tube exchange Author:FANI BECKMAN PA-C Date:12/21/21 Interventional Radiology Focused Preprocedure History/Physical Reason for Visit Nephrostomy in Place, Due for Exchange History of Presenting Illness/Planned IR Procedure 30 y.o female with history of cervical cancer and hydronephrosis presents for routine LEFT nephrostomy tube exchange. Patient had ureteral stent placed in 06/2021 at [facility] and has not had a nephrostomy tube exchange since then. She states she has tried contacting their office, but has been unable to speak to anybody. She has had chronic UTIs since her ureteral stent placement often accompanied by flank pain. She does not have a dependent bag attached and has had her nephrostomy tube capped. Patient occasionally drained nephrostomy into the toilet. Patient denies any leaking from the tube. Allergies (2) ActiveReaction codeineNone Documented penicillinNone Documented Home Medications (6) Active acetaminophen-oxyCODONE 325 mg-5 mg oral tablet 1 tab(s), PRN, Oral, q4h Ativan 1 mg oral tablet 1 mg = 1 tab(s), PRN, Oral, TID Normal Saline Flush 0.9% injectable solution 0.09 gram(s) = 10 mL, IR Drain, Daily ondansetron 4 mg oral disintegrating strip 4 mg = 1 film, Oral, q6h sulfamethoxazole-trimethoprim 800 mg-160 mg oral tablet 1 tab(s), Oral, BID Tylenol 325 mg oral capsule 650 mg, PRN, Oral, q4h Problem List/Past Medical History Acute kidney injury Anxiety Asthma Cervical cancer Complicated UTI (urinary tract infection) DVT prophylaxis Dehydration History of chemotherapy History of radiation therapy Left flank pain Moderate protein-calorie malnutrition Nausea and vomiting Obstructive uropathy Port-A-Cath in place Tobacco use Surgical History Nephrostomy with tube drainage: 01/10/21 JJ stent: 11/15/20 Radiation: 06/2020 Cervical biopsy: 2019 Tumor cells, benign: 2001 Cannulation of Portacath Nephrostomy with tube drainage Family History Mother: Asthma; Breast cancer; COPD - Chronic obstructive pulmonary disease; Heart attack; Heart disease; Hypertension; Kidney stone Father: Alcohol abuse; Stroke; Substance abuse Sister: Cancer Grandparent: Diabetes; Stroke Social History Alcohol Risk Assessment: Denies Alcohol Use; Details: Use: Current. Type: Beer. Frequency: 1-2 times per week. Home/Environment Risk Assessment: No Risk; Details: Domestic Concerns: None. Living situation: Home/Independent. Safe place to go: Yes. Lives In: Mobile home, 1st floor bedroom, 1st floor bathroom. Current Home Treatments None. Professional Skilled Services or Special Community Resources None. Financial concerns: No. Marital Status: Unmarried. Nutrition/Health Risk Assessment: No Risk; Details: Type of diet: Regular. Appetite Fair. Eating Difficulties None. Caffeine intake amount: 1 can pop per day. Sexual Details: Sexually active: Yes. First active at age: 18 Years. Current partners: 1. Number of lifetime partners: 7. Self described orientation: Straight or heterosexual. Other contraceptive use: condoms. History of sexual abuse: No. Gender Identity: Identifies as female. Substance Abuse Risk Assessment: Denies Substance Abuse; Details: Use: Never. Tobacco Details: Nicotine Use: 5-9 cigarettes (between 1/4 to 1/2 pack)/day in last 30 days. Type: Cigarettes. Tobacco use per day: 10. Number of years: 10. Started at age: 19 Years. Previous treatment: None. Ready to change: Yes. Physical Exam Vitals: Ghlruhaseem48.7 (10:38) Systolic Blood PressureNo result Diastolic Blood PressureNo result Pulse81 (10:38) EbX324 (10:38) Respiratory Rate16 (10:38) General: Alert, cooperative. : + LEFT nephrostomy tube The remainder of the physical exam is noncontributory. Labs Anticoagulation Labs No qualifying data available. No qualifying data available. Assessment/Treatment Plan Image guided LEFT nephrostomy tube change Post Procedure Discharge Plan Patient to be discharged home. Fani Beckman PA-C Interventional Radiology Pager: [phone] dept: [phone] Available on [employer] Future Appointments Appointment Date:01/29/2022 11:00:00 AM Scheduled Provider: Location:IR Appointment Type:IR Neph Cath-Neph Ureter W/Guide Left Future Scheduled Tests Laboratory* Urinalysis 12/22/20 * Urine Culture 12/22/20 Radiology* IR Neph Cath-Neph Ureter W/Guide Left 01/29/22 * US Renal 12/27/20 [facility] 02-18-2022 Hospital Discharge instructions Patient Education 12/21/2021 11:35:22 Radiology- Procedure/Biopsy 02/16/2020 (CUSTOM) [facility] Radiology Procedure/Biopsy Discharge Instructions Interventional Radiology [facility] [address] [address] Today, you had a Left Nephrostomy Tube Change This procedure/biopsy was done to help your doctor diagnose and treat the signs and symptoms you have been experiencing. These instructions should be followed after your procedure to reduce the chance of experiencing complications. Please follow the instructions below to reduce the chance of experiencing complications. Diet: Resume your normal diet as tolerated. Drink extra fluids. Activity: Rest for the remainder of the day. You may resume your normal activity tomorrow. You may bathe/shower after 24 hours. Do not soak or submerge site (including swimming or hot tubs) until a scab forms. No heavy lifting, pushing, or straining. Dressing: Check the site for bleeding. Apply pressure to the site if bleeding excessively and call your physician. Change the band aid as needed; it can be removed after 24 hours. Keep the site dry at all times until a scab forms over the site. Pain Control: The puncture site may be sore for 1 to 2 days following the procedure. Ylxo-eyt-zwkupam pain medication should be used for pain or discomfort. Please check with the physician who ordered this procedure for you for their specific recommendations. If your pain is not relieved or becomes more severe, notify the physician who sent you for this procedure. If you were sedated for this procedure: Avoid alcoholic beverages for 24 hours after your procedure. Do not drive or operate heavy machinery for 24 hours after your procedure. Do not make any legal decisions for 24 hours after your procedure. Medication: Please resume on . When to seek medical help: Lightheadedness, dizziness, or fainting. Severe pain or swelling. Severe nausea or vomiting. Infection: fever greater than 101 degrees, chills, redness, warmth, swelling, bleeding, or pus frompuncture site. If you experience any of these issues during the first 24 hours, please follow the instruction below: 8:00 am- 5:00 pm call [phone] After 5:00 pm call [phone] After 24 hours, contact the physician who ordered this procedure for you. Obtaining test results: Please make an appointment with your doctor to obtain your test results. They are usually availablewithin 4 to 7 business days. Do not assume everything is normal if you have not heard from your doctor or medical facility. It is important for you to follow up on all of your test results. Special Instructions: Follow Up Care 12/18/2021 11:13:26 With:Follow up with primary care provider Address:Unknown When: Unknown [facility] 09-11-2021 NoteSend Summary: Discharge Summary Providers: Provider RoleProvider Name Shira Morse Note Recipients: PCP Discharge: Summary: Admission Date: .11-Jul-2021 12:58:00 Discharge Date: 14-Jul-2021 Attending Physician at Discharge: Shira Teran Admission Reason: Complicated uti Final Discharge Diagnoses: Complicated UTI (urinary tract infection) Nutrition Diagnosis: Agree with dietitians assessment and diagnoses as stated. 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 Procedures: none Condition at Discharge: Satisfactory Disposition at Discharge: .Home Vital Signs: T PRBPSpO2 [id number]/41987% Date/Time07/14 8: 8: 8: 8: 8:43 Range(36.8C - 36.9C ) (64 - 90 ) (17 - 18 ) (120 - 144 )/ (83 - 93 ) (99% - 100% ) Highest temp of 36.9 C was recorded at 07/14 0:20 Date: Weight/Scale Type:Height: 14-Jul-2021 05:4447.7 kg / standing Physical Exam: Constitutional: Well developed, awake/alert/oriented x3, no distress, alert and cooperative Eyes: PERRL, EOMI, clear sclera ENMT: mucous membranes moist, no apparent injury, no lesions seen Head/Neck: Neck supple, no apparent injury, thyroid without mass or tenderness, No JVD, trachea midline, no bruits Respiratory/Thorax: Patent airways, CTAB, normal breath sounds with good chest expansion, thorax symmetric Cardiovascular: Regular, rate and rhythm, no murmurs, 2+ equal pulses of the extremities, normal S 1and S 2 Gastrointestinal: Nondistended, soft, non-tender, no rebound tenderness or guarding, no masses palpable, no organomegaly, +BS, no bruits Extremities: normal extremities, no cyanosis edema, contusions or wounds, no clubbing Neurological: alert and oriented x3, intact senses, motor, response and reflexes, normal strength Lymphatic: No significant lymphadenopathy Psychological: Appropriate mood and behavior Skin: Warm and dry, no lesions, no rashes Left nephrostomy tube present Hospital Course: Patient presented to the emergency department on 07/11/2021 complaining of dysuria and difficulty urinating. In the ED, she was found to have abnormal urinalysis, and given her left nephrostomy tube, was admitted for further evaluation and treatment. Patient was started on IV antibiotics and was transitioned over oral antibiotics based upon urine culture results. All of her symptoms resolved, and she was discharged home to complete her oral antibiotic treatment course. Discharge Information: and Continuing Care: Lab Results - Pending: None Radiology Results - Pending: None Discharge Instructions: Activity: activity as tolerated. Nutrition/Diet: resume normal diet Follow Up Appointments: Follow-Up Appointment 01: Physician/Dept/Service: Dr Polo Plummer Reason for Referral: Follow up Scheduled Date/Time: 09-Aug-2021 11:10 Location: [facility], [address] [place] [address], [address] [address] Discharge Medications: Home Medication sulfamethoxazole-trimethoprim 800 mg-160 mg oral tablet - 1 tab(s) orally every 12 hours PRN Medication LORazepam 1 mg oral tablet - 1 tab(s) orally 3 times a day, As Needed Electronic Signatures: Shira Teran) (Signed 19-Jul-2021 12:33) Authored: Send Summary, Summary Content, Ongoing Care, Note Completion Last Updated: 19-Jul-2021 12:33 by Shira Teran)[facility]09-09-2021 NoteHistory of Present Illness: HPI: LALY NAVAS is a 30 year old Female with H stage IIIB invasive squamous cell carcinoma (dx April 2020, s/p cisplatin and whole pelvic radiation) c/b left sided hydronephrosis secondary to a left distal ureteral stricture (regular L PCNT exchanges, recently had a balloon dilatation of distal left ureter and internalization of PCNT on 07/02/21 w/ IR), and recurrent UTIs presenting with dysuria. States symptoms began immediately after urology procedure on 07/02. Symptoms progressed to include nausea vomiting, unable to hold down PO for week. Endorses ongoing nausea vomiting. Vomited on arrival to floor per patient. Complaining of 7 /10 flank pain mostly left but present on both sides. Denies lightheadedness, fevers, or chills. Past Medical/Surgical History: Surg History: Stricture of left ureter: Family History: Family History: reviewed and not pertinent to presenting problem Social History: Social History: Smoking Statuslight user (uses <10 cig/day, OR <0.5 ppd, OR 1 can/pouch loose leaf tobacco per week, OR <0.5 vape pods per day) (1) Alcohol Usedenies(1) Drug Usedaily (1) Drug 2 Usedenies (1) Allergies: No Known Allergies: Medications Prior to Admission: Home meds have been reviewed LORazepam 1 mg oral tablet: 1 tab(s) orally 3 times a day, As Needed Zofran 4 mg oral tablet: orally every 4 hours, As Needed Percocet 5/325 oral tablet: orally every 4-6 hours, As Needed. Objective: Objective Information: T PRBPSpO2 [id number]/78067% Date/Time07/12 0: 0: 0: 0: 0:17 Range(36.4C - 36.8C ) (46 - 103 ) (12 - 18 ) (103 - 136 )/ (75 - 102 ) (98% - 100% ) Pain reported at 07/12 1:30: 7 = Severe Physical Exam by System: Constitutional: Mild acute distress, resting but easily arousable. Appears stated age, well nourished. No conversational dyspnea noted. Pleasant and cooperative. Eyes: EOMI, anicteric Sclera, No Conjunctival erythema Head/Neck: Normocephalic atraumatic Respiratory/Thorax: No accessory muscle use, no tripoding, symmetrical chest expansion, CTAB, Bilat air entry, No rales wheezes or rhonchi Cardiovascular: S1S2 RRR, No MRG appreciated Gastrointestinal: BS normoactive, soft, left flank pain , nondistended. No guarding, no rigidity. Musculoskeletal: adequate muscle tone and bulk Extremities: No pitting edema bilat lower ext. DP P 2+ bilat. Acyanotic Neurological: Awake Oriented x 3. No Gross Focal Neurologic Deficits. Speech is clear and comprehensible. no facial asymmetry, EOMI, answers questions appropriately. Skin: Warm, Dry, Intact, No Lacerations, No rashes, no ecchymoses, no skin tears Recent Lab Results: Results: CBC: 07/11/2021 14:42 \ Hgb / \ 12.3 / WBC Plt 9.0 477 H / Hct \ / 35.9 L \ RBC: 3.38 L MCV: 106 H Neutrophil %: 56.9 CMP: 07/11/2021 14:42 NA+ Cl- BUN / 138 104 8 / Glucose 79 K+ HCO3- Creat \ 3.8 23 0.69 \ \ T Bili / \ 0.4 / AST x ---- x ALT 11 x ---- x 4 L / Alk P \ / 65 \ Calcium : 9.1 Anion Gap : 15 Albumin : 4.0 T Protein : 6.4 I have reviewed these laboratory results: Urine Test 12-Jul-2021 01:50:00 ResultValue HCG, Urine NEGATIVE Urinalysis with Culture if Indicated 11-Jul-2021 15:06:00 ResultValue Color, Urine YELLOW Reference Range: STRAW,YELLOW Appearance, Urine HAZY Specific [place], Urine 1.010 pH, Urine 6.0 Protein, Urine 100 (2+) A Glucose, Urine NEGATIVE Blood, Urine SMALL (1+) A Ketones, Urine NEGATIVE Bilirubin, Urine NEGATIVE Urobilinogen, Urine <2.0 Nitrite, Urine POSITIVE A Leukocyte Esterase, Urine LARGE (3+) A Urinalysis, Microscopic 11-Jul-2021 15:06:00 ResultValue White Cells >182 A WBC Clumps OCC Red Blood Cells 9 A Bacteria, Urine 1+ A Mucous 4+ Coronavirus 2018 by PCR 11-Jul-2021 15:02:00 ResultValue Fluid Source Nasal, Nasopharyngeal Coronavirus 2018,PCR NOT DETECTED Reference Range: Not Detected . This test has received FDA Emergency Use Authorization (EUA) and has been verified by [facility] ([facility]). This test is only authorized for the duration of time korin Date of Symptom Onset [id number] Culture, Blood Trending View [id number] 14:43:00 11-Jul-2021 14:42:00 Culture, BloodNEGATIVE TO DATE, CULTURE IN PROGRESS. NEGATIVE TO DATE, CULTURE IN PROGRESS. Complete Blood Count + Differential 11-Jul-2021 14:42:00 ResultValue White Blood Cell Count 9.0 Nucleated Erythrocyte Count 0.0 Red Blood Cell Count 3.38 L HGB 12.3 HCT 35.9 L MCV 106 H MCHC 34.3 PLT 477 H RDW-CV 14.1 Neutrophil % 56.9 Immature Granulocytes % 0.6 Lymphocyte % 26.5 Monocyte % 8.8 Eosinophil % 6.2 Basophil % 1.0 Neutrophil Count 5.13 Lymphocyte Count 2.39 Monocyt (more content not included)...[facility]09-09-2021 Hospital Discharge instructions* Vascular Access Port: [id number] Access Port: right chestVascular Access Port: top entry * Activity:activity as tolerated. * Follow Up Appointment 1:Physician/Dept/Service: Dr Polo Harden for Referral: Follow upScheduled Date/Time: 09-Aug-2021 11:10Location: [facility], [address] [place] [address], [address], [place] [address]Phone Number: [phone] [facility]08-30-2021 NotePre-procedure Verification and Time Out: Pre-Procedure Verification and Time Out: Procedure Locationprocedure area HUDDLE - Pre-procedure Verificationcompleted TIME OUT - Final Verificationcompleted immediately prior to procedure start DEBRIEFcompleted General Information: Anesthesia Critical Care: Non-Anesthesia Post-Procedure Diagnosis: same Procedure Name: 1- PCN to NU catheter conversion. 2- balloon dilatation of the distal left ureter Findings: grossly normal anatomy Procedure performed by: Dr. Munoz Food Quality Tester(s): Arie Esqueda (resident) Estimated Blood Loss (mL): none Specimen: no Indication(s): ureteral obstruction, PCNT dependant Informed Consent: written consent obtained Procedure Details: Procedure Details: Antegrade nephrostogram was performed which showed high grade stricture in the distal left ureter just proximal to the UVJ. Balloon dilatation of the distal left ureter was performed Subsequently, an 8 Fr x 24 cm NU catheter was placed. The catheter was sutured and secured n place and was capped. Tolerance: good Lines/Drains: Ultrasound Guided Insertion: no Barrier Used: hand hygiene, head cover, mask, large drape, sterile gown, sterile gloves Face Airway PPE Used: surgical mask Head PPE Used: surgical cap Body PPE Used: gown Dressing Type: M-fix Prep: Patient Position: prone Site Prep: with chlorhexidine, draped, usual sterile procedure followed Anesthesia: Anesthesia: local, intravenous Fentanyl (mcg): 300 microgram(s) 1% Lidocaine (mL): 2 mL Versed (mg): 4 mg Attestation: Note Completion: I am a:Resident/Fellow Attending AttestationI was present for the entire procedure Electronic Signatures: Rohith Munoz) (Signed 02-Jul-2021 15:23) Co-Signer: Pre-procedure Verification and Time Out, General Information, Procedure Details, Lines/Drains, Prep/Sedation, Note Completion Perla Esqueda (Resident)) (Signed 02-Jul-2021 14:31) Authored: Pre-procedure Verification and Time Out, General Information, Procedure Details, Lines/Drains, Prep/Sedation, Note Completion Last Updated: 02-Jul-2021 15:23 by Rohith Munoz)[facility] Appointment Date:11/22/2021 03:40:00 PM Scheduled Provider:FLIP MARTIN MD Location:[facility] Appointment Type:SO OV Follow Up Future Scheduled Tests Laboratory* Urinalysis 12/22/20 * Urine Culture 12/22/20 * Complete Blood Count 08/30/20 * Complete Metabolic Panel 08/30/20 Radiology* XR Abdomen AP 11/09/20 * IR Nephrostomy Tube Change Lt Guide 08/31/20 * US Renal 12/27/20 * IR Nephrostomy Tube Remove Lt Guide 09/06/20 [facility] Evaluation + Plan note Future Appointments Appointment Date:03/26/2022 01:00:00 PM Scheduled Provider: Location:IR Appointment Type:IR Neph Cath-Neph Ureter W/Guide Left Appointment Date:05/30/2022 02:50:00 PM Scheduled Provider:FLIP MARTIN MD Location:[facility] Appointment Type:SO OV Follow Up Future Scheduled Tests Radiology* IR Neph Cath-Neph Ureter W/Guide Left 03/26/22 [facility] evaluation + Plan note Future Appointments Appointment Date:05/23/2022 11:00:00 AM Scheduled Provider: Location:IR Appointment Type:IR Neph Cath-Neph Ureter W/Guide Left Appointment Date:05/30/2022 02:50:00 PM Scheduled Provider:FLIP MARTIN MD Location:[facility] Appointment Type:SO OV Follow Up Future Scheduled Tests Radiology* IR Neph Cath-Neph Ureter W/Guide Left 05/23/22 [facility] evaluation + Plan note Future Appointments Appointment Date:08/15/2022 01:00:00 PM Scheduled Provider: Location:IR Appointment Type:IR Neph Cath-Neph Ureter W/Guide Left Appointment Date:01/01/2023 11:30:00 AM Scheduled Provider:FLIP MARTIN MD Location:[facility] Appointment Type:SO OV Follow Up Diagnostic Tests Pending * Urine Culture 08/08/22 Future Scheduled Tests Radiology* IR Neph Cath-Neph Ureter W/Guide Left 07/03/22 * IR Neph Cath-Neph Ureter W/Guide Left 08/02/22 * IR Neph Cath-Neph Ureter W/Guide Left 09/02/22 * IR Neph Cath-Neph Ureter W/Guide Left 10/02/22 * IR Neph Cath-Neph Ureter W/Guide Left 11/02/22 * IR Neph Cath-Neph Ureter W/Guide Left 12/03/22 * IR Neph Cath-Neph Ureter W/Guide Left 12/31/22 * IR Neph Cath-Neph Ureter W/Guide Left 01/31/23 * IR Neph Cath-Neph Ureter W/Guide Left 03/02/23 * IR Neph Cath-Neph Ureter W/Guide Left 04/02/23 * IR Neph Cath-Neph Ureter W/Guide Left 05/02/23 * IR Neph Cath-Neph Ureter W/Guide Left 06/02/23 * IR Neph Cath-Neph Ureter W/Guide Left 08/15/22 [facility] evaluation + Plan note Future Appointments Appointment Date:10/02/2022 11:00:00 AM Scheduled Provider: Location:IR Appointment Type:IR Neph Cath-Neph Ureter W/Guide Left Appointment Date:01/01/2023 11:30:00 AM Scheduled Provider:FLIP MARTIN MD Location:[facility] Appointment Type:SO OV Follow Up Future Scheduled Tests Radiology* IR Neph Cath-Neph Ureter W/Guide Left 07/03/22 * IR Neph Cath-Neph Ureter W/Guide Left 08/02/22 * IR Neph Cath-Neph Ureter W/Guide Left 09/02/22 * IR Neph Cath-Neph Ureter W/Guide Left 10/02/22 * IR Neph Cath-Neph Ureter W/Guide Left 11/02/22 * IR Neph Cath-Neph Ureter W/Guide Left 12/03/22 * IR Neph Cath-Neph Ureter W/Guide Left 12/31/22 * IR Neph Cath-Neph Ureter W/Guide Left 01/31/23 * IR Neph Cath-Neph Ureter W/Guide Left 03/02/23 * IR Neph Cath-Neph Ureter W/Guide Left 04/02/23 * IR Neph Cath-Neph Ureter W/Guide Left 05/02/23 * IR Neph Cath-Neph Ureter W/Guide Left 06/02/23 * IR Neph Cath-Neph Ureter W/Guide Left 10/02/22 [facility] Evaluation + Plan note Future Appointments Appointment Date:10/02/2022 11:00:00 AM Scheduled Provider: Location:IR Appointment Type:IR Neph Cath-Neph Ureter W/Guide Left Appointment Date:01/01/2023 11:30:00 AM Scheduled Provider:FLIP MARTIN MD Location:[facility] Appointment Type:SO OV Follow Up Diagnostic Tests Pending * Urine Culture 09/27/22 Future Scheduled Tests Radiology* IR Neph Cath-Neph Ureter W/Guide Left 07/03/22 * IR Neph Cath-Neph Ureter W/Guide Left 08/02/22 * IR Neph Cath-Neph Ureter W/Guide Left 09/02/22 * IR Neph Cath-Neph Ureter W/Guide Left 10/02/22 * IR Neph Cath-Neph Ureter W/Guide Left 11/02/22 * IR Neph Cath-Neph Ureter W/Guide Left 12/03/22 * IR Neph Cath-Neph Ureter W/Guide Left 12/31/22 * IR Neph Cath-Neph Ureter W/Guide Left 01/31/23 * IR Neph Cath-Neph Ureter W/Guide Left 03/02/23 * IR Neph Cath-Neph Ureter W/Guide Left 04/02/23 * IR Neph Cath-Neph Ureter W/Guide Left 05/02/23 * IR Neph Cath-Neph Ureter W/Guide Left 06/02/23 * IR Neph Cath-Neph Ureter W/Guide Left 10/02/22 [facility] Evaluation + Plan note Future Appointments Appointment Date:01/07/2023 11:00:00 AM Scheduled Provider: Location:IR Appointment Type:IR Neph Cath-Neph Ureter W/Guide Left Diagnostic Tests Pending * Urine Culture 01/01/23 Future Scheduled Tests Radiology* IR Neph Cath-Neph Ureter W/Guide Left 07/03/22 * IR Neph Cath-Neph Ureter W/Guide Left 08/02/22 * IR Neph Cath-Neph Ureter W/Guide Left 09/02/22 * IR Neph Cath-Neph Ureter W/Guide Left 10/02/22 * IR Neph Cath-Neph Ureter W/Guide Left 11/02/22 * IR Neph Cath-Neph Ureter W/Guide Left 12/03/22 * IR Neph Cath-Neph Ureter W/Guide Left 12/31/22 * IR Neph Cath-Neph Ureter W/Guide Left 01/31/23 * IR Neph Cath-Neph Ureter W/Guide Left 03/02/23 * IR Neph Cath-Neph Ureter W/Guide Left 04/02/23 * IR Neph Cath-Neph Ureter W/Guide Left 05/02/23 * IR Neph Cath-Neph Ureter W/Guide Left 06/02/23 * IR Neph Cath-Neph Ureter W/Guide Left 01/07/23 [facility] Evaluation + Plan note Future Appointments Appointment Date:01/07/2023 11:00:00 AM Scheduled Provider: Location:IR Appointment Type:IR Neph Cath-Neph Ureter W/Guide Left Future Scheduled Tests Radiology* IR Neph Cath-Neph Ureter W/Guide Left 07/03/22 * IR Neph Cath-Neph Ureter W/Guide Left 08/02/22 * IR Neph Cath-Neph Ureter W/Guide Left 09/02/22 * IR Neph Cath-Neph Ureter W/Guide Left 10/02/22 * IR Neph Cath-Neph Ureter W/Guide Left 11/02/22 * IR Neph Cath-Neph Ureter W/Guide Left 12/03/22 * IR Neph Cath-Neph Ureter W/Guide Left 12/31/22 * IR Neph Cath-Neph Ureter W/Guide Left 01/31/23 * IR Neph Cath-Neph Ureter W/Guide Left 03/02/23 * IR Neph Cath-Neph Ureter W/Guide Left 04/02/23 * IR Neph Cath-Neph Ureter W/Guide Left 05/02/23 * IR Neph Cath-Neph Ureter W/Guide Left 06/02/23 * IR Neph Cath-Neph Ureter W/Guide Left 01/07/23 [facility] Evaluation + Plan note Future Appointments Appointment Date:02/20/2023 02:50:00 PM Scheduled Provider:FLIP MARTIN MD Location:[facility] Appointment Type:SO OV Appointment Date:05/12/2023 11:00:00 AM Scheduled Provider: Location:IR Appointment Type:IR Neph Cath-Neph Ureter W/Guide Left Future Scheduled Tests Laboratory* Urinalysis 02/14/23 * Urine Culture 02/14/23 Radiology* IR Neph Cath-Neph Ureter W/Guide Left 07/03/22 * IR Neph Cath-Neph Ureter W/Guide Left 08/02/22 * IR Neph Cath-Neph Ureter W/Guide Left 09/02/22 * IR Neph Cath-Neph Ureter W/Guide Left 10/02/22 * IR Neph Cath-Neph Ureter W/Guide Left 11/02/22 * IR Neph Cath-Neph Ureter W/Guide Left 12/03/22 * IR Neph Cath-Neph Ureter W/Guide Left 12/31/22 * IR Neph Cath-Neph Ureter W/Guide Left 01/31/23 * IR Neph Cath-Neph Ureter W/Guide Left 03/02/23 * IR Neph Cath-Neph Ureter W/Guide Left 04/02/23 * IR Neph Cath-Neph Ureter W/Guide Left 05/02/23 * IR Neph Cath-Neph Ureter W/Guide Left 06/02/23 * IR Neph Cath-Neph Ureter W/Guide Left 05/12/23 [facility] Evaluation + Plan note Future Appointments Appointment Date:06/24/2023 11:00:00 AM Scheduled Provider: Location:IR Appointment Type:IR Neph Cath-Neph Ureter W/Guide Left Appointment Date:08/20/2023 03:20:00 PM Scheduled Provider:FLIP MARTIN MD Location:[facility] Appointment Type:SO OV Follow Up Future Scheduled Tests Laboratory* Pathology Salvage Mend Worker Request 05/15/23 * Urinalysis 02/14/23 Radiology* IR Neph Cath-Neph Ureter W/Guide Left 07/03/22 * IR Neph Cath-Neph Ureter W/Guide Left 08/02/22 * IR Neph Cath-Neph Ureter W/Guide Left 09/02/22 * IR Neph Cath-Neph Ureter W/Guide Left 10/02/22 * IR Neph Cath-Neph Ureter W/Guide Left 11/02/22 * IR Neph Cath-Neph Ureter W/Guide Left 12/03/22 * IR Neph Cath-Neph Ureter W/Guide Left 12/31/22 * IR Neph Cath-Neph Ureter W/Guide Left 01/31/23 * IR Neph Cath-Neph Ureter W/Guide Left 03/02/23 * IR Neph Cath-Neph Ureter W/Guide Left 04/02/23 * IR Neph Cath-Neph Ureter W/Guide Left 05/02/23 * IR Neph Cath-Neph Ureter W/Guide Left 06/02/23 * IR Neph Cath-Neph Ureter W/Guide Left 06/24/23 * BD Bone Density DEXA Axial Skeleton 05/15/23 [facility] Evaluation + Plan note Future Appointments Appointment Date:06/30/2023 02:00:00 PM Scheduled Provider: Location:IR Appointment Type:IR Neph Cath-Neph Ureter W/Guide Left Appointment Date:07/30/2023 11:30:00 AM Scheduled Provider:FLIP MARTIN MD Location:[facility] Appointment Type:SO OV Follow Up Future Scheduled Tests Laboratory* Pathology Salvage Mend Worker Request 05/15/23 * Urinalysis 02/14/23 Radiology* IR Neph Cath-Neph Ureter W/Guide Left 07/03/22 * IR Neph Cath-Neph Ureter W/Guide Left 08/02/22 * IR Neph Cath-Neph Ureter W/Guide Left 09/02/22 * IR Neph Cath-Neph Ureter W/Guide Left 10/02/22 * IR Neph Cath-Neph Ureter W/Guide Left 11/02/22 * IR Neph Cath-Neph Ureter W/Guide Left 12/03/22 * IR Neph Cath-Neph Ureter W/Guide Left 12/31/22 * IR Neph Cath-Neph Ureter W/Guide Left 01/31/23 * IR Neph Cath-Neph Ureter W/Guide Left 03/02/23 * IR Neph Cath-Neph Ureter W/Guide Left 04/02/23 * IR Neph Cath-Neph Ureter W/Guide Left 05/02/23 * IR Neph Cath-Neph Ureter W/Guide Left 06/02/23 * IR Neph Cath-Neph Ureter W/Guide Left 06/30/23 * BD Bone Density DEXA Axial Skeleton 05/15/23 [facility] Evaluation + Plan note Future Appointments Appointment Date:07/31/2023 03:00:00 PM Scheduled Provider:OLE PACE MD Location:[facility] Appointment Type:PALL New Patient Appointment Date:09/04/2023 01:00:00 PM Scheduled Provider: Location:IR Appointment Type:IR Nephrostomy Tube Change Lt Guide Appointment Date:10/31/2023 10:00:00 AM Scheduled Provider:BRITTNI LU Location:[facility] Appointment Type:SO OV Follow Up Future Scheduled Tests Laboratory* Pathology Salvage Mend Worker Request 05/15/23 * Urinalysis 02/14/23 Radiology* IR Neph Cath-Neph Ureter W/Guide Left 08/02/22 * IR Neph Cath-Neph Ureter W/Guide Left 09/02/22 * IR Neph Cath-Neph Ureter W/Guide Left 10/02/22 * IR Neph Cath-Neph Ureter W/Guide Left 11/02/22 * IR Neph Cath-Neph Ureter W/Guide Left 12/03/22 * IR Neph Cath-Neph Ureter W/Guide Left 12/31/22 * IR Neph Cath-Neph Ureter W/Guide Left 01/31/23 * IR Neph Cath-Neph Ureter W/Guide Left 03/02/23 * IR Neph Cath-Neph Ureter W/Guide Left 04/02/23 * IR Neph Cath-Neph Ureter W/Guide Left 05/02/23 * IR Neph Cath-Neph Ureter W/Guide Left 06/02/23 * IR Neph Cath-Neph Ureter W/Guide Left 06/30/23 * BD Bone Density DEXA Axial Skeleton 05/15/23 * IR Nephrostomy Tube Change Lt Guide 09/04/23 * IR Nephrostomy Tube Change Lt Guide 07/22/23 * IR Nephrostomy Tube Change Lt Guide 08/21/23 * IR Nephrostomy Tube Change Lt Guide 09/21/23 * IR Nephrostomy Tube Change Lt Guide 10/21/23 * IR Nephrostomy Tube Change Lt Guide 11/21/23 * IR Nephrostomy Tube Change Lt Guide 12/22/23 * IR Nephrostomy Tube Change Lt Guide 01/20/24 * IR Nephrostomy Tube Change Lt Guide 02/20/24 * IR Nephrostomy Tube Change Lt Guide 03/21/24 * IR Nephrostomy Tube Change Lt Guide 04/21/24 * IR Nephrostomy Tube Change Lt Guide 05/21/24 * IR Nephrostomy Tube Change Lt Guide 06/21/24 [facility] Evaluation + Plan note Future Appointments Appointment Date:09/04/2023 01:00:00 PM Scheduled Provider: Location:IR Appointment Type:IR Nephrostomy Tube Change Lt Guide Appointment Date:09/09/2023 10:30:00 AM Scheduled Provider:OLE PACE MD Location:[facility] Appointment Type:PALL OV Follow Up Appointment Date:10/31/2023 10:00:00 AM Scheduled Provider:BRITTNI LU Location:[facility] Appointment Type:SO OV Follow Up Future Scheduled Tests Laboratory* Pathology Salvage Mend Worker Request 05/15/23 * Urinalysis 02/14/23 Radiology* IR Neph Cath-Neph Ureter W/Guide Left 09/02/22 * IR Neph Cath-Neph Ureter W/Guide Left 10/02/22 * IR Neph Cath-Neph Ureter W/Guide Left 11/02/22 * IR Neph Cath-Neph Ureter W/Guide Left 12/03/22 * IR Neph Cath-Neph Ureter W/Guide Left 12/31/22 * IR Neph Cath-Neph Ureter W/Guide Left 01/31/23 * IR Neph Cath-Neph Ureter W/Guide Left 03/02/23 * IR Neph Cath-Neph Ureter W/Guide Left 04/02/23 * IR Neph Cath-Neph Ureter W/Guide Left 05/02/23 * IR Neph Cath-Neph Ureter W/Guide Left 06/02/23 * IR Neph Cath-Neph Ureter W/Guide Left 06/30/23 * BD Bone Density DEXA Axial Skeleton 05/15/23 * IR Nephrostomy Tube Change Lt Guide 09/04/23 * IR Nephrostomy Tube Change Lt Guide 07/22/23 * IR Nephrostomy Tube Change Lt Guide 08/21/23 * IR Nephrostomy Tube Change Lt Guide 09/21/23 * IR Nephrostomy Tube Change Lt Guide 10/21/23 * IR Nephrostomy Tube Change Lt Guide 11/21/23 * IR Nephrostomy Tube Change Lt Guide 12/22/23 * IR Nephrostomy Tube Change Lt Guide 01/20/24 * IR Nephrostomy Tube Change Lt Guide 02/20/24 * IR Nephrostomy Tube Change Lt Guide 03/21/24 * IR Nephrostomy Tube Change Lt Guide 04/21/24 * IR Nephrostomy Tube Change Lt Guide 05/21/24 * IR Nephrostomy Tube Change Lt Guide 06/21/24 [facility] Evaluation + Plan note Future Appointments Appointment Date:10/14/2023 01:00:00 PM Scheduled Provider:OLE PACE MD Location:[facility] Appointment Type:PALL OV Follow Up Appointment Date:10/31/2023 10:00:00 AM Scheduled Provider:BRITTNI LU Location:[facility] Appointment Type:SO OV Follow Up Future Scheduled Tests Laboratory* Urinalysis 02/14/23 Radiology* IR Neph Cath-Neph Ureter W/Guide Left 06/30/23 * IR Nephrostomy Tube Change Lt Guide 09/04/23 [facility] Evaluation + Plan note Future Appointments Appointment Date:12/03/2023 11:00:00 AM Scheduled Provider: Location:IR Appointment Type:IR Nephrostomy Exchange Appointment Date:12/08/2023 03:00:00 PM Scheduled Provider:OLE PACE MD Location:[facility] Appointment Type:PALL OV Follow Up Appointment Date:12/08/2023 03:40:00 PM Scheduled Provider:BRITTNI LU Location:[facility] Appointment Type:SO OV Future Scheduled Tests Laboratory* Urinalysis 02/14/23 Radiology* IR Nephrostomy Exchange 12/03/23 * IR Neph Cath-Neph Ureter W/Guide Left 06/30/23 * IR Nephrostomy Tube Change Lt Guide 09/04/23 [facility] Evaluation + Plan note Future Appointments Appointment Date:01/06/2024 10:30:00 AM Scheduled Provider:OLE PACE MD Location:[facility] Appointment Type:PALL OV Follow Up Appointment Date:01/14/2024 10:00:00 AM Scheduled Provider: Location:IR Appointment Type:IR Nephrostomy Exchange Appointment Date:04/07/2024 03:20:00 PM Scheduled Provider:BRITTNI LU Location:[facility] Appointment Type:SO OV Follow Up Future Scheduled Tests Laboratory* Pathology Salvage Mend Worker Request 12/08/23 * Urinalysis 02/14/23 Radiology* IR Nephrostomy Exchange 01/14/24 * IR Neph Cath-Neph Ureter W/Guide Left 06/30/23 * IR Nephrostomy Tube Change Lt Guide 09/04/23 [facility] evaluation + Plan note Future Appointments Appointment Date:01/14/2024 10:00:00 AM Scheduled Provider: Location:IR Appointment Type:IR Nephrostomy Exchange Appointment Date:02/03/2024 10:30:00 AM Scheduled Provider:OLE PACE MD Location:[facility] Appointment Type:PALL OV Follow Up Appointment Date:04/07/2024 03:20:00 PM Scheduled Provider:BRITTNI LU Location:[facility] Appointment Type:SO OV Follow Up Future Scheduled Tests Laboratory* Urinalysis 02/14/23 Radiology* IR Nephrostomy Exchange 01/14/24 * IR Neph Cath-Neph Ureter W/Guide Left 06/30/23 * IR Nephrostomy Tube Change Lt Guide 09/04/23 [facility] evaluation + Plan note Future Appointments Appointment Date:04/01/2024 11:00:00 AM Scheduled Provider:OLE PACE MD Location:[facility] Appointment Type:PALL OV Follow Up Appointment Date:04/07/2024 03:20:00 PM Scheduled Provider: Location:[facility] Appointment Type:SO OV Follow Up Future Scheduled Tests Laboratory* Clostridium difficile (PCR) 03/04/24 * Ova + Parasite Exam 03/04/24 Radiology* IR Nephrostomy Tube Change Lt Guide 09/04/23 [facility] evaluation + Plan note Future Appointments Appointment Date:03/14/2025 01:30:00 PM Scheduled Provider:OLE PACE MD Location:[place] [facility] Appointment Type:PALL OV Follow Up Appointment Date:03/30/2025 10:40:00 AM Scheduled Provider:GONZALEZ CARMONA MD Location:UROLOGY Appointment Type:URO OV Appointment Date:04/13/2025 01:00:00 PM Scheduled Provider: Location:IR Appointment Type:IR Nephrostomy Exchange Appointment Date:05/18/2025 11:20:00 AM Scheduled Provider: Location:[facility] Appointment Type:SO OV Follow Up Future Scheduled Tests Laboratory* hCG, quantitative (AH/AM Only) 11/15/24 Radiology* IR Nephrostomy Exchange 04/13/25 * IR Nephrostomy Exchange 12/30/24 * CT Renal 03/08/25 * NM Kidney Diuretic 03/08/25 [facility] evaluation + Plan note Future Appointments Appointment Date:03/30/2025 10:40:00 AM Scheduled Provider:GONZALEZ CARMONA MD Location:UROLOGY Appointment Type:URO OV Appointment Date:03/30/2025 11:30:00 AM Scheduled Provider:OLE PACE MD Location:[place] [facility] Appointment Type:PALL OV Follow Up Appointment Date:04/13/2025 01:00:00 PM Scheduled Provider: Location:IR Appointment Type:IR Nephrostomy Exchange Appointment Date:05/18/2025 11:20:00 AM Scheduled Provider: Location:[facility] Appointment Type:SO OV Follow Up Future Scheduled Tests Laboratory* hCG, quantitative (AH/AM Only) 11/15/24 Radiology* IR Nephrostomy Exchange 04/13/25 * IR Nephrostomy Exchange 12/30/24 * CT Renal 03/08/25 * NM Kidney Diuretic 03/08/25 [facility] evaluation + Plan note Future Appointments Appointment Date:04/13/2025 01:00:00 PM Scheduled Provider: Location:IR Appointment Type:IR Nephrostomy Exchange Appointment Date:05/18/2025 11:20:00 AM Scheduled Provider: Location:[facility] Appointment Type:SO OV Follow Up Future Scheduled Tests Laboratory* hCG, quantitative (AH/AM Only) 11/15/24 Radiology* IR Nephrostomy Exchange 04/13/25 * IR Nephrostomy Exchange 12/30/24 * CT Renal 03/08/25 * NM Kidney Diuretic 03/08/25 * NM Kidney Diuretic 03/30/25 [facility] Evaluation note* Respiratory/Thorax: Patent airways, CTAB, normal breath sounds with good chest expansion, thorax sym metricHead/Neck: Neck supple, no apparent injury, thyroid without mass or tenderness, No JVD, trachea midline, no bruitsENMT: mucous membranes moist, no apparent injury, no lesions seenEyes: PERRL, EOMI, clear scleraSkin: Warm and dry, no lesions, no rashesLeft nephrostomy tube presentConstitutional: Well developed, awake/alert/oriented x3, no distress, alert and cooperativePsychological: Appropriate mood and behaviorExtremities: normal extremities, no cyanosis edema, contusions or wounds, no cl ubbingGastrointestinal: Nondistended, soft, non-tender, no rebound tenderness or guarding, no masses palpable, no organomegaly, +BS, no bruitsCardiovascular: Regular, rate and rhythm, no murmurs, 2+ equal pulses of the extremities, normal S 1and S 2Lymphatic: No significant lymphadenopathyNeurological: alert and oriented x3, intact senses, motor, response and reflexes, normal strength [facility] N[facility] No data available for this section [facility] Hospital Discharge instructions No data available for this section [facility] Progress note No data available for this section [facility] Summary Purpose Family History No Family History Records FoundNo Family History Records FoundNo Family History Records FoundNo Family History Records FoundNo Family History Records Found No data available for this section No data available for this section No data available for this section No data available for this section No data available for this section No data available for this section No data available for this section No data available for this section No data available for this section No data available for this section No data available for this section No data available for this section No data available for this section No data available for this section No data available for this section No data available for this section No Family History Records Found No data available for this section No data available for this section No data available for this section No data available for this section No data available for this section No data available for this section No data available for this section No data available for this section No Family History Records FoundNo Family History Records Found Advance Directives No Advanced Directives Records FoundNo Advanced Directives Records FoundNo Advanced Directives Records FoundNo Advanced Directives Records FoundNo Advanced Directives Records FoundNo Advanced Directives Records FoundNo Advanced Directives Records FoundNo Advanced Directives Records Found Additional Source Comments INFORMATION SOURCE (unrecogn ized section and content) DATE CREATED AUTHOR 05/23/2020 [facility] DATE CREATED AUTHOR AUTHOR'S ORGANIZ ATION 10/25/2020 [facility] DATE CREATED AUTHOR AUTHOR'S ORGANIZ ATION 07/11/2021 [facility] DATE CREATED AUTHOR AUTHOR'S ORGANIZ ATION 08/11/2021 [facility] DATE CREATED AUTHOR AUTHOR'S ORGANIZ ATION 08/29/[address] [facility] DATE CREATED AUTHOR AUTHOR'S ORGANIZ ATION 06/25/2024 [facility] ([place]) DATE CREATED AUTHOR AUTHOR'S ORGANIZ ATION 04/04/2025 [facility] DATE CREATED AUTHOR AUTHOR'S ORGANIZ ATION 04/08/2025 [facility] <item> Privacy Markings (unrecogniz ed section and content) Section Author: Candida Purdy PROHIBITION ON REDISCLOSURE OF CONFIDENTIAL INFORMATION This notice accompanies a disclosure of information concerning a client made to you with the consent of such client. Care Team (unrecognized sect ion and content) Personnel Name: FLIP MARTIN MD Address: [address] [place] [address] [facility] [place], [address] Personnel Name: FLIP MARTIN MD Address: [address] [place] [address] [facility] [place], [address] Personnel Name: FLIP MARTIN MD Address: [address] [place] [address] [facility] [place], [address] Personnel Name: FLIP MARTIN MD Address: [address] [place] [address] [facility] [place], [address] Care Team Personnel Name: Pari Brice Position: Quality Review Member Role: Strip Picker Name: FLIP MARTIN MD Position: P4 Oncology Provider Member Role: Primary Care Physician Address: Address: [address] [place] [address] [facility] [address] Name: Maryann Mae RN Position: [facility] Member Role: Palliative Care Team Related Persons Name: HAM GRISSOM Name: JESSICA NAVAS Name: ZANDRA ALCANTARA Name: AUSTIN HADDAD Care Team Personnel Name: Pari Brice Position: Quality Review Member Role: Strip Picker Name: FLIP MARTIN MD Position: P4 Oncology Provider Member Role: Primary Care Physician Address: Address: [address] [place] [address] [facility] [address] Name: Maryann Mae RN Position: [facility] Member Role: Palliative Care Team Related Persons Name: HAM GRISSOM Name: OLE LEE Name: JESSICA NAVAS Name: ZANDRA ALCANTARA Name: AUSTIN HADDAD Care Team Personnel Name: Pari Brice Position: Quality Review Member Role: Strip Picker Name: FLIP MARTIN MD Position: P4 Oncology Provider Member Role: Primary Care Physician Address: Address: [address] [place] [address] Name: Maryann Mae RN Position: [facility] Member Role: Palliative Care Team Related Persons Name: HAM GRISSOM Name: ANMOL NAVAS Name: JESSICA NAVAS Name: ZANDRA ALCANTARA Care Team Personnel Name: Pari Brice Position: Quality Review Member Role: Strip Picker Name: FLIP MARTIN MD Position: P4 Oncology Provider Member Role: Primary Care Physician Address: Address: [address] [place] [address] Gynecologic Oncology [address] Name: Maryann Mae RN Position: [facility] Member Role: Palliative Care Team Related Persons Name: HAM GRISSOM Name: ANMOL NAVAS Name: JESSICA NAVAS Name: LINRENATOSS, ZANDRA Care Team Personnel Name: Pari Brice Position: Quality Review Member Role: Strip Picker Name: FLIP MARTIN MD Position: P4 Oncology Provider Member Role: Primary Care Physician Address: Address: [address] [place] [address] Gynecologic On[address] Name: Maryann Mae RN Position: [facility] Member Role: Palliative Care Team Related Persons Name: HAM GRISSOM Name: ANMOL NAVAS Name: JESSICA NAVAS Name: ZANDRA ALCANTARA Care Team Personnel Name: Pari Brice Position: Quality Review Member Role: Strip Picker Name: FLIP MARTIN MD Position: P4 Oncology Provider Member Role: Primary Care Physician Address: Address: [address] [place] [address] Gynecologic On[address] Name: Maryann Mae RN Position: [facility] Member Role: Palliative Care Team Related Persons Name: HAM GRISSOM Name: ANMOL NAVAS Name: JESSICA NAVAS Name: QUINTON ZANDRA Care Team Personnel Name: Pari Brice Position: Quality Review Member Role: Strip Picker Name: FLIP MARTIN MD Position: P4 Oncology Provider Member Role: Primary Care Physician Address: Address: [address] [place] [address] Gynecologic Oncology [address] Name: Maryann Mae RN Position: [facility] Member Role: Palliative Care Team Related Persons Name: HAM GRISSOM Name: ANMOL NAVAS Name: JESSICA NAVAS Name: QUINTON, ZANDRA Care Team Personnel Name: Pari Brice Position: Quality Review Member Role: Strip Picker Name: FLIP MARTIN MD Position: P4 Oncology Provider Member Role: Primary Care Physician Address: Address: [address] [place] [address] Gynecologic Oncology [address] Name: Maryann Mae RN Position: [facility] Member Role: Palliative Care Team Related Persons Name: HAM GRISSOM Name: ANMOL NAVAS Name: JESSICA NAVAS Name: LINSHELTON ZANDRA Care Team Personnel Name: Pari Brice Position: Quality Review Member Role: Strip Picker Name: FLIP MARTIN MD Position: P4 Oncology Provider Member Role: Primary Care Physician Address: Address: [address] [place] [address] Gynecologic Oncology [address] Name: Maryann Mae RN Position: [facility] Member Role: Palliative Care Team Related Persons Name: HAM GRISSOM Name: ANMOL NAVAS Name: JESSICA NAVAS Name: EDDIE ALCANTARALY Care Team Personnel Name: Pari Brice Position: Quality Review Member Role: Strip Picker Name: FLIP MARTIN MD Position: P4 Oncology Provider Member Role: Primary Care Physician Address: Address: [address] [place] [address] Gynecologic Oncology [address] Name: Maryann Mae RN Position: [facility] Member Role: Palliative Care Team Related Persons Name: HAM GRISSOM Name: ANMOL NAVAS Name: JESSICA NAVAS Name: QUINTON ZANDRA Care Team Personnel Name: Pari Brice Position: Quality Review Member Role: Strip Picker Name: FLIP MARTIN MD Position: P4 Oncology Provider Member Role: Primary Care Physician Address: Address: [address] [place] [address] Gynecologic Oncology [address] Name: Maryann Mae RN Position: [facility] Member Role: Palliative Care Team Related Persons Name: HAM GRISSOM Name: ANMOL NAVAS Name: JESSICA NAVAS Name: LINHOSS, ZANDRA Care Team Personnel Name: PHYSICIAN, HOWARD Position: Physician Member Role: Primary Care Physician Name: BRITTNI LU Position: P4 Oncology Provider Member Role: Gynecologic Oncologist Address: Address: [address] [place] [address] Gynecologic Oncology [address] Name: Maryann Mae RN Position: [facility] Member Role: Palliative Care Team Related Persons Name: HAM GRISSOM Name: ANTONELLAANMOL Name: ANTONELLAJESSICA Name: LINHOSS, ZANDRA Care Team Personnel Name: PHYSICIAN, NONE Position: Physician Member Role: Primary Care Physician Name: BRITTNI LU Position: P4 Oncology Provider Member Role: Gynecologic Oncologist Address: Address: [address] [place] [address] Gynecologic Oncology [address] Name: Maryann Mae RN Position: [facility] Member Role: Palliative Care Team Related Persons Name: HAM GRISSOM Name: ANMOL NAVAS Name: JESSICA NAVAS Name: LINHOSS, ZANDRA Care Team Personnel Name: PHYSICIAN, NONE Position: Physician Member Role: Primary Care Physician Name: BRITTNI LU Position: P4 Oncology Provider Member Role: Gynecologic Oncologist Address: Address: [address] [place] [address] Gynecologic Oncology [address] Name: Maryann Mae RN Position: [facility] Member Role: Palliative Care Team Related Persons Name: HAM GRISSOM Name: ANMOL NAVAS Name: JESSICA NAVAS Name: LINHOSS, ZANDRA Care Team Personnel Name: PHYSICIAN, NONE Position: Physician Member Role: Primary Care Physician Name: BRITTNI LU Position: P4 Oncology Provider Member Role: Gynecologic Oncologist Address: Address: [address] [place] [address] Gynecologic Oncology [address] Name: Maryann Mae RN Position: [facility] Member Role: Palliative Care Team Related Persons Name: HAM GRISSOM Name: ANTONELLAANMOL Name: ANTONELLA, JESSICA Name: LINHOSS, ZANDRA Care Team Personnel Name: PHYSICIAN, NONE Position: Physician Member Role: Primary Care Physician Name: BRITTNI LU Position: P4 Oncology Provider Member Role: Gynecologic Oncologist Address: Address: [address] [place] [address] Gynecologic Oncology [address] Name: Maryann Mae RN Position: [facility] Member Role: Palliative Care Team Related Persons Name: HAM GRISSOM Name: ANMOL NAVAS Name: ANTONELLAJESSICA Name: LINHOSS, ZANDRA Care Team Personnel Name: BRITTNI LU APRN-HAZARDOUS WASTE REMOVER Position: P4 Oncology Provider Member Role: Gynecologic Oncologist Address: Address: [address] [place] [address] Gynecologic Oncology [address] Name: Maryann Mae RN Position: [facility] Member Role: Palliative Care Team Related Persons Name: HAM GRISSOM Name: ANMOL NAVAS Name: JESSICA NAVAS Name: LINHOSS, ZANDRA Care Team Personnel Name: OTHER, PROVIDER NOT SPECIFIED Member Role: Primary Care Physician Name: 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 Position: P4 Oncology Provider Member Role: Gynecologic Oncologist Address: Address: [address] [place] [address] Gynecologic Oncology [address] Name: Maryann Mae RN Position: [facility] Member Role: Palliative Care Team Related Persons Name: HAM GRISSOM Name: ANMOL NAVAS Name: JESSICA NAVAS Name: LINHOSS, ZANDRA Care Team Personnel Name: OTHER, PROVIDER NOT SPECIFIED Member Role: Primary Care Physician Name: Marisel Gasca RN Position: [facility] Member Role: Palliative Name: Maryann Mae RN Position: [facility] Member Role: Palliative Care Team Related Persons Name: HAM GRISSOM Name: ANMOL NAVAS Name: JESSICA NAVAS Name: LINHOSS, ZANDRA Care Team Personnel Name: OTHER, PROVIDER NOT SPECIFIED Member Role: Primary Care Physician Name: Marisel Gasca RN Position: [facility] Member Role: Palliative Name: Maryann Mae RN Position: [facility] Member Role: Palliative Care Team Related Persons Name: HAM GRISSOM Name: ANMOL NAVAS Name: JESSICA NAVAS Name: LINHOSS, ZANDRA Care Team Personnel Name: OLE PACE MD Position: P4 Physician - Primary Care Member Role: Primary Care Physician Address: Address: [address] [place] [address] Palliative Care [address] Name: Marisel Gasca RN Position: [facility] Member Role: Palliative Name: Maryann Mae RN Position: [facility] Member Role: Palliative Care Team Related Persons Name: HAM GRISSOM Name: ANMOL NAVAS Name: JESSICA NAVAS Name: QUINTON ZANDRA Care Team Personnel Name: OLE PACE MD Position: P4 Physician - Primary Care Member Role: Primary Care Physician Address: Address: [address] [place] [address] Name: Marisel Gasca RN Position: [facility] Member Role: Palliative Name: Maryann Mae RN Position: [facility] Member Role: Palliative Care Team Related Persons Name: YANETH GRISSOMANDRA Name: ANTONELLA, ANMOL Name: JESSICA NAVAS Name: EDDIE ALCANTARALY Care Team Personnel Name: OLE PACE MD Position: P4 Physician - Primary Care Member Role: Primary Care Physician Address: [address] [place] [address] Telecom: Name: Marisel Gasca RN Position: [facility] Member Role: Palliative Name: Maryann Mae RN Position: [facility] Member Role: Palliative Care Team Related Persons Name: HAM GRISSOM Name: ANMOL NAVAS Name: JESSICA NAVAS Name: QUINTON, ZANDRA Care Team Personnel Name: OLE PACE MD Position: P4 Physician - Primary Care Member Role: Primary Care Physician Address: [address] [place] [address] Telecom: Name: Marisel Gasca RN Position: [facility] Member Role: Palliative Name: Maryann Mae RN Position: [facility] Member Role: Palliative Care Team Related Persons Name: YANETH GRISSOMANDRA Name: ANTONELLAANMOL Name: JESSICA NAVAS Name: EDDIE ALCANTARALY Care Team Personnel Name: OLE PACE MD Position: P4 Physician - Primary Care Member Role: Primary Care Physician Address: [address] [place] [address] Telecom: Name: Marisel Gasca RN Position: [facility] Member Role: Palliative Name: Maryann Mae RN Position: [facility] Member Role: Palliative Care Team Related Persons Name: HAM GRISSOM Name: ANMOL NAVAS Name: JESSICA NAVAS Name: ZANDRA ALCANTARA Care Team Personnel Name: OLE PACE MD Position: P4 Physician - Primary Care Member Role: Primary Care Physician Address: [address] [place] [address] Telecom: Name: Marisel Gasca RN Position: [facility] Member Role: Palliative Name: Maryann Mae RN Position: [facility] Member Role: Palliative Care Team Related Persons Name: HAM GRISSOM Name: ANMOL NAVAS Name: JESSICA NAVAS Name: ZANDRA ALCANTARA Care Team Personnel Name: OLE PACE MD Position: P4 Physician - Primary Care Member Role: Primary Care Physician Address: [address] [place] [address] Telecom: Name: Marisel Gasca RN Position: [facility] Member Role: Palliative Name: Maryann Mae RN Position: [facility] Member Role: Palliative Care Team Related Persons Name: HAM GRISSOM Name: ANMOL NAVAS Name: JESSICA NAVAS Name: ZANDRA ALCANTARA Care Team Personnel Name: OLE PACE MD Position: P4 Physician - Primary Care Member Role: Primary Care Physician Address: [address] [place] [address] Telecom: Name: Marisel Gasca RN Position: [facility] Member Role: Palliative Name: Maryann Mae RN Position: [facility] Member Role: Palliative Care Team Related Persons Name: HAM GRISSOM Name: ANMOL NAVAS Name: JESSICA NAVAS Name: ZANDRA ALCANTARA Care Team (unrecognized sect ion and content) Care Team Personnel Name: Pari Brice Position: Quality Review Member Role: Strip Picker Name: FLIP MARTIN MD Position: P4 Oncology Provider Member Role: Primary Care Physician Address: Address: [address] [place] [address] [place] [address] Name: Maryann Mae RN Position: [facility] Member Role: Palliative Care Team Related Persons Name: HAM GRISSOM Name: JESSICA NAVAS Name: ZANDRA ALCANTARA Name: AUSTIN HADDAD Care Team Personnel Name: Pari Brice Position: Quality Review Member Role: Strip Picker Name: FLIP MARTIN MD Position: P4 Oncology Provider Med Service: SEAM RUBBER-ONC Infusion Therapy Member Role: Primary Care Physician Address: Address: [address] [place] [address] Gynecologic Oncology [place], [address] Name: FLIP MARTIN MD Position: P4 Oncology Provider Med Service: SEAM RUBBER-ONC Infusion Therapy Member Role: Primary Care Physician Address: Address: [address] [place] [address] Gynecologic Oncology [place], [address] Name: Maryann Mae RN Position: [facility] Med Service: Palliative Care Member Role: Palliative Care Team Related Persons Name: HAM GRISSOM Name: JESSICA NAVAS Name: ZANDRA ALCANTARA Name: AUSTIN HADDAD Care Team Personnel Name: Pari Brice Position: Quality Review Member Role: Strip Picker Name: FLIP MARTIN MD Position: Oncology Provider Med Service: SE[facility]-ONC Infusion Therapy Member Role: Primary Care Physician Address: Address: [address] [place] [address] Gynecologic Oncology [place], [address] Name: FLIP MARTIN MD Position: P4 Oncology Provider Med Service: SE[facility] RUBBER-ONC Infusion Therapy Member Role: Primary Care Physician Address: Address: [address] [place] [address] Gynecologic Oncology [place], [address] Name: Maryann Mae RN Position: [facility] Med Service: Palliative Care Member Role: Palliative Care Team Related Persons Name: HAM GRISSOM Name: JESSICA NAVAS Name: ZANDRA ALCANTARA Name: AUSTIN HADDAD Care Team Personnel Name: Pari Brice Position: Quality Review Member Role: Strip Picker Name: FLIP MARTIN MD Position: P4 Oncology Provider Member Role: Primary Care Physician Address: Address: [address] [place] [address] Gynecologic Oncology [address] Name: Maryann Mae RN Position: [facility] Member Role: Palliative Care Team Related Persons Name: HAM GRISSOM Name: JESSICA NAVAS Name: ZANDRA ALCANTARA Name: AUSTIN HADDAD Care Team Personnel Name: FLIP MARTIN MD Position: P4 Oncology Provider Member Role: Primary Care Physician Address: Address: [address] [place] [address] Gynecologic Oncology [address] Name: Maryann Mae RN Position: [facility] Member Role: Palliative Care Team Related Persons Name: HAM GRISSOM Name: JESSICA NAVAS Name: ZANDRA ALCANTARA Name: AUSTIN HADDAD Care Team Personnel Name: Pari Brice Position: Quality Review Member Role: Strip Picker Name: FLIP MARTIN MD Position: P4 Oncology Provider Member Role: Primary Care Physician Address: Address: [address] [place] [address] Gynecologic Oncology [address] Name: Maryann Mae RN Position: [facility] Member Role: Palliative Care Team Related Persons Name: HAM GRISSOM Name: JESSICA NAVAS Name: ZANDRA ALCANTARA Name: AUSTIN HADDAD Care Team Personnel Name: Pari Brice Position: Quality Review Member Role: Strip Picker Name: FLIP MARTIN MD Position: P4 Oncology Provider Member Role: Primary Care Physician Address: Address: [address] [place] [address] Gynecologic Oncology [address] Name: Maryann Mae RN Position: [facility] Member Role: Palliative Care Team Related Persons Name: HAM GRISSOM Name: JESSICA NAVAS Name: ZANDRA ALCANTARA Name: AUSTIN HADDAD Care Team Personnel Name: Pari Brice Position: Quality Review Member Role: Strip Picker Name: FLIP MARTIN MD Position: P4 Oncology Provider Member Role: Primary Care Physician Address: Address: [address] [place] [address] Gynecologic Oncology [address] Name: Maryann Mae RN Position: [facility] Member Role: Palliative Care Team Related Persons Name: HAM GRISSOM Name: JESSICA NAVAS Name: ZANDRA ALCANTARA Name: AUSTIN HADDAD Care Team Personnel Name: Pari Brice Position: Quality Review Member Role: Strip Picker Name: FLIP MARTIN MD Position: Oncology Provider Member Role: Primary Care Physician Address: Address: [address] [facility] Gynecologic Oncology [place], [place] [address] Name: Maryann Mae RN Position: [facility] Member Role: Palliative Care Team Related Persons Name: HAM GRISSOM Name: JESSICA NAVAS Name: ZANDRA ALCANTARA Name: AUSTIN HADDAD FOR RECORDS PERTAINING TO PATIENTS WHO ARE OR HAVE BEEN ENROLLED IN A CHEMICAL DEPENDENCY/SUBSTANCEABUSE PROGRAM, SOME INFORMATION MAY BE OMITTED. This clinical summary was aggregated from multiple sources. Caution should be exercised in using it in the provision of clinical care. This summary normalizes information from multiple sources, and as a consequence, information in this document may materially change the coding, format and clinical context of patient data. In addition, data may be omitted in some cases. CLINICAL DECISIONS SHOULD BE BASED ON THE PRIMARY CLINICAL RECORDS. [facility] [employer] [facility]. provides no warranty or guarantee of the accuracy or completeness of information in this document.
[2025-04-09 01:41] LABS: Anion Gap 14 (5-15); BUN 9 mg/dL (4-19); Calcium,Total 9.1 mg/dL (7.6-11.0); Carbon Dioxide 19.8 mmol/L (21.0-32.0); Chloride 106 mmol/L (98-108); Creatinine, Serum 0.96 mg/dL (0.70-1.20); EST Glomerular Filtration Rate 79 (>60); Glucose 120 mg/dL (70-99); Potassium 3.4 mmol/L (3.3-5.1); Sodium Level 140 mmol/L (133-145)
[2025-04-09 01:46] LABS: Bacteria 0 SEEN /hpf (None Seen); Mucous, Urine 0 SEEN /hpf (<or=2+); Red Blood Cells-Urine 0 SEEN /hpf (0-5)
[2025-04-09 01:49] LABS: Color, Urine Straw (Yellow); Glucose, Dipstick Normal (Normal); Ketone-Dipstick Negative (Negative); Leukocyte Esterase-Dipstick Negative /ul (Negative); Nitrite-Dipstick Negative (Negative); Occult Blood-Urine Negative /ul (Negative); Protein-Dipstick Negative (Negative); Urine Bilirubin Dipstick Negative (Negative); Urine Clarity Clear (Clear); Urine Urobilinogen Normal (Normal)
[2025-04-09 02:00] VITALS: BP 107/77; PULSE 69; RESP 16; O2SAT 99
[2025-04-09 02:03] LABS: Squamous Epithelial Cells - UA 0-5 SEEN /hpf (5-10); White Blood Cells 0-5 SEEN /hpf (0-5)
[2025-04-09] MEDS: HYDROmorphone 1 MG/ML Syringe IV (02:50)
[2025-04-09 02:52] VITALS: BP 118/72; PULSE 81; RESP 14; TEMP 36.6; O2SAT 98
== END 2025-04-09 02:57 | disposition home or self-care (01) ==
PROVIDERS: Emergency Provider Emergency Medicine; Visit Provider Emergency Medicine
DX: R10.32 Left lower quadrant pain (principal); Z93.6 Other artificial openings of urinary tract status; N13.9 Obstructive and reflux uropathy, unspecified; R11.0 Nausea; F17.210 Nicotine dependence, cigarettes, uncomplicated; F17.290 Nicotine dependence, other tobacco product, uncomplicated; Z79.899 Other long term (current) drug therapy
CPT/HCPCS: 80048; 81001; 85025; 96374; 96375; 99283; A4216; J2405

== ENCOUNTER 2025-06-01 23:54 | Emergency (ER) | payer MEDICARE, SELFPAY ==
[2025-06-01 23:55] VITALS: BP 131/114; PULSE 88; RESP 16; TEMP 37.2; O2SAT 97
[2025-06-02 00:30] LABS: Mucous, Urine 0 SEEN /hpf (<or=2+); Red Blood Cells-Urine 0 SEEN /hpf (0-5); Squamous Epithelial Cells - UA 0 SEEN /hpf (5-10)
[2025-06-02 00:32] LABS: Color, Urine Yellow (Yellow); Glucose, Dipstick Normal (Normal); Ketone-Dipstick Negative (Negative); Leukocyte Esterase-Dipstick 500 /ul (Negative); Nitrite-Dipstick Negative (Negative); Occult Blood-Urine 250 /ul (Negative); Protein-Dipstick 100 mg/dl (Negative); Specific Gravity, Urine 1.010 (1.002-1.030); Urine Bilirubin Dipstick Negative (Negative)
[2025-06-02 00:42] LABS: Hematocrit 33.2 % (37-47); Hemoglobin 11.3 g/dL (12.0-15.0); Immature Granulocytes Count 0.030 X10^3/uL (0.0-0.0); Mean Corp Hgb Conc 34.0 g/dL (32-36); Mean Corpuscular Volume 96.5 fL (81-99); Mean Platelet Vol. 9.5 fl (6.2-12.0); NRBC Flagged by Analyzer 0 % (0-5); Platelet Count 333 K/mm3 (150-450); RBC Distribution Width CV 14.7 % (11.6-14.6); RBC Distribution Width SD 51.6 fl (35.1-43.9); Red Blood Count 3.44 M/mm3 (4.2-5.4); White Blood Count 9.5 K/mm3 (4.4-11.0)
[2025-06-02 00:46] LABS: Internal QC Validated? YES +Cl - CLEAR BKGD; Pregnancy, Urine Negative Negative; Record Kit Lot#,Urine Preg 0000962302
[2025-06-02 00:56] VITALS: BP 127/95; PULSE 88; RESP 16; TEMP 37; O2SAT 97
[2025-06-02 01:04] LABS: AST(SGOT) 15 U/L (<=31); Alanine Aminotransfer ALT/SGPT 11 U/L (<=34); Albumin, Serum 3.9 g/dL (3.5-5.0); Alkaline Phosphatase 64 U/L (35-104); Anion Gap 13 (5-15); BUN 10 mg/dL (4-19); BUN/Creat Ratio 9.5 RATIO (10-20); Calcium,Total 9.0 mg/dL (7.6-11.0); Carbon Dioxide 22.2 mmol/L (21.0-32.0); Chloride 102 mmol/L (98-108); Estimated Creatinine Clearance 66.39 ml/min (50-250); Globulin 2.2 g/dL (2.2-4.2); Glucose 110 mg/dL (70-99); Potassium 3.8 mmol/L (3.3-5.1)
--- NOTE | 2025-06-02 01:04 | EX.ED.DYSGE1 ---
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 She has chronic pain and intermittent nausea with this. States she has chronic left flank pain and takes 10 mg of oxycodone as needed (2 5 mg). States he is having increased pain today. The pain is in her left flank and radiates up her back and around to her abdomen. Her last dose of pain medicine was at 6 AM. She then developed associated nausea and vomiting. She has had this before but her symptoms are more severe than normal. She denies any associated fever. Denies any change in her urine output. She had been following at [facility] with Dr. Sanders but states that she is getting established with a doctor at [facility]. She is not established yet. She denies any blood in her urine. No other complaints or concerns reported at this time. [facility] Medical History Nephrostomy present Kidney failure Kidney stone Cervical cancer Home Medications ?Medication ?Instructions ?Recorded ?Last Taken ?Type escitalopram oxalate 20 mg tablet 20 mg PO DAILY 04/09/25 Unknown History (Lexapro) lorazepam 1 mg tablet (Ativan) 1 mg PO Q8H PRN anxiety 04/09/25 Unknown History ondansetron HCl 4 mg tablet 4 mg PO Q6H PRN nausea and vomiting 04/09/25 Unknown History oxycodone 5 mg tablet 10 mg PO Q6H PRN pain 04/09/25 Unknown History sulfamethoxazole 800 1 tab PO BID 04/09/25 Unknown History mg-trimethoprim 160 mg tablet (Bactrim DS) sulfamethoxazole 800 1 tab PO BID 7 days #14 tabs 06/02/25 Unknown Rx mg-trimethoprim 160 mg tablet (Bactrim DS) Allergy/AdvReac Type Severity Reaction Status Date / Time haloperidol (From Haldol) Allergy Angioedema Verified 06/01/25 23:55 Penicillins (PCN) Allergy Hives Verified 06/01/25 23:55 Social History Smoking Status: Current every day smoker tobacco type: cigarettes and e-cigarettes ROS ROS ED Constitutional Constitutional ED: Denies chills or fever(s) ENT ENT ED: Denies sore throat Cardiovascular Cardiovascular: Denies chest pain Respiratory/Chest Respiratory/Chest: Denies cough Gastrointestinal Gastrointestinal: Reports abdominal pain, nausea and vomiting Genitourinary Genitourinary ED: Reports other Details: Left side nephrostomy tube Musculoskeletal Musculoskeletal: Reports back pain Hematologic/Lymphatic Hematologic/Lymphatic: Denies easy bleeding or easy bruising EXAM Physical Exam Const Vital Signs: 06/01/25 23:55 06/02/25 00:56 06/02/25 02:54 Temperature 98.9 F 98.6 F 98.6 F Temperature Source Oral Oral Pulse Rate 88 88 75 Respiratory Rate 16 16 18 Blood Pressure 131/114 H 127/95 H 118/75 Blood Pressure Mean 119 105 89 Pulse Ox 97 97 98 Oxygen Delivery Method Room Air Room Air Positive well nourished and well developed General Appearance ED: well developed and NAD HEENT Reports moist mucous membranes Neck supple Chest Wall inspection of chest normal Resp normal respiratory effort Cardio regular rate and regular rhythm GI non-distended Inspection: Negative for abdominal distention Auscultation: normoactive bowel sounds Palpation: soft and tender suprapubic Back/Spine Back/Spine Narrative: Left-sided nephrostomy tube in place, no surrounding erythema from the tube site General Back: CVA tenderness left Extremity normal to inspection Neuro oriented x3 Sensorium / Orientation: alert Psych mental status grossly normal Skin no rashes or lesions noted and no wounds MDM MDM MDM Narrative Medical decision making narrative: Patient valuated for nausea, vomiting and left-sided flank pain as well as abdominal pain. 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 Patient was seen in our ER 04/09/2025 for similar presentation. Differential includes pyelonephritis, chronic pain exacerbation, dehydration, LOAN, electrolyte derangement. She is having good urine output from her nephrostomy tubes lower suspicion for malpositioning of it. Patient given IV morphine and Zofran for symptom control. CBC, BMP and urinalysis both from voided as well as nephrostomy obtained. CBC normal with a normal white blood cell count of 9.5. Lower suspicion for systemic infection. Patient has normal vital signs in the emergency room. CMP is also normal with normal creatinine. Urinalysis from voided urine is normal however nephrostomy tube does show 1+ bacteria and 500 leukocyte esterase but only 0-5 white blood cells. Will send for culture. Patient is asking for more pain medicine. I do have some concerns that there is some drug-seeking behavior versus pain control issues. I did look up the patient on [employer] and patient has been at outside hospitals almost every day this last month. She was at [facility] emergency room for similar presentation yesterday. At that time she was discharged home. She left [facility] from [facility] after a couple day admission on 05/30 (3 days ago). Prior to that she did have a urine culture and which grew mixed microbiota. She had a CT on 05/25 through [facility] which showed no acute process or acute change. She has chronic kidney stones on the left that have been stable for the last year. Her nephrostomy tube was exchanged at the beginning of this month. I do not think she needs transfer for exchanges she does not have signs of obstruction with it at this time. Believes this is the patient's sixth ER visit this month for similar complaints at 3 different ERs. Patient given further Toradol and a dose of Bactrim. Will put her on a course of Bactrim. Is discharged home to follow-up outpatient with her urology through [facility] now. Lab Data Attestation: I reviewed the patient's lab results. Labs: Laboratory Results - last 24 hr 06/02/25 06/02/25 06/02/25 00:16 00:20 01:10 WBC 9.5 RBC 3.44 L Hgb 11.3 L Hct 33.2 L MCV 96.5 MCH 32.8 H MCHC 34.0 RDW Std Deviation 51.6 H RDW Coeff of [place]re[place] 14.7 H Plt Count 333 MPV 9.5 Immature Gran % (Auto) 0.300 Neut % (Auto) 54.6 Lymph % (Auto) 32.7 [place] % (Auto) 9.0 Eos % (Auto) 2.5 Baso % (Auto) 0.9 Absolute Neuts (auto) 5.2 Absolute Lymphs (auto) 3.10 Nucleated RBC % 0 Sodium 138 Potassium 3.8 Chloride 102 Carbon Dioxide 22.2 Anion Gap 13 BUN 10 Creatinine 1.01 Estim Creat Clear Calc 66.39 Est GFR (MDRD) Non-Af 74 BUN/Creatinine Ratio 9.5 L Glucose 110 H Calcium 9.0 Total Bilirubin < 0.15 AST 15 ALT 11 Alkaline Phosphatase 64 Total Protein 6.0 Albumin 3.9 Globulin 2.2 Albumin/Globulin Ratio 1.8 Urine Color Yellow Yellow Urine Clarity Clear Clear Urine pH 7.0 6.0 Ur Specific [place] 1.010 1.015 Urine Protein 100 H 15 H Urine Glucose (UA) Normal Normal Urine Ketones Negative Negative Urine Occult Blood 250 H Negative Urine Nitrite Negative Negative Urine Bilirubin Negative Negative Urine Urobilinogen Normal Normal Ur Leukocyte Esterase 500 H Negative Urine RBC 0 SEEN 0 SEEN Urine WBC 0-5 SEEN 0 SEEN Ur Squamous Epith Cells 0 SEEN 0 SEEN Urine Bacteria 1+ 0 SEEN Urine Mucus 0 SEEN 0 SEEN Urine Test Negative Discharge Plan Triage Chief Complaint: Complaint ED Provider: Maryellen Haile Dx/Rx/DC Orders Clinical Impression: Left flank pain, Nausea and vomiting, H/O insertion of nephrostomy tube Instructions: ED Chronic Pain, ED Flank Pain, Uncertain Cause Prescriptions: New sulfamethoxazole-trimethoprim [Bactrim DS] 800-160 mg tablet 1 tab PO BID 7 Days Qty: 14 0RF No Action oxycodone 5 mg tablet 10 mg PO Q6H PRN (Reason: pain) lorazepam [Ativan] 1 mg tablet 1 mg PO Q8H PRN (Reason: anxiety) escitalopram oxalate [Lexapro] 20 mg tablet 20 mg PO DAILY ondansetron HCl 4 mg tablet 4 mg PO Q6H PRN (Reason: nausea and vomiting) sulfamethoxazole-trimethoprim [Bactrim DS] 800-160 mg tablet 1 tab PO BID Primary Care Provider: [facility] Referrals: [facility] [Other] Activity Restrictions/Additional Instructions: Your urine does have some subtle signs of infection versus chronic colonization from the nephrostomy tube. Out of abundance of caution we will put you on antibiotics for this. A culture was sent. Your lab work otherwise normal. I do not think you have malpositioning of your nephrostomy tube. Please continue to follow-up [facility]. Follow-up with your main doctor for discussion of further pain management. Print Language: Macedonian Disposition Disposition: Home, Self Care Discharge Date/Time: 06/02/25 03:11
[2025-06-02 01:16] LABS: Mucous, Urine 0 SEEN /hpf (<or=2+); Red Blood Cells-Urine 0 SEEN /hpf (0-5); Squamous Epithelial Cells - UA 0 SEEN /hpf (5-10)
[2025-06-02 01:17] LABS: Glucose, Dipstick Normal (Normal); Ketone-Dipstick Negative (Negative); Leukocyte Esterase-Dipstick Negative /ul (Negative); Nitrite-Dipstick Negative (Negative); Occult Blood-Urine Negative /ul (Negative); Protein-Dipstick 15 mg/dl (Negative); Specific Gravity, Urine 1.015 (1.002-1.030); Urine Bilirubin Dipstick Negative (Negative)
[2025-06-02 01:31] LABS: Color, Urine Yellow (Yellow)
--- OUTSIDE RECORDS SUMMARY | 2025-06-02 01:52 | XMS RPT_ITS | CCD ---
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 Role Phone Flip Martin Unavailable Unavailable Servetas, Shira Unavailable Urology Consult Unavailable Unavailable Polo Plummer Unavailable FLIP MARTIN MD Primary Care Physician [phone] FLIP MARTIN MD Primary Care Physician [...] PROVIDER NOT SPECIFIED Primary Care Un available NAYELI BRICE DO Consulting UnavailOLE Mcknight MD Attending Unavailable LACEY LOERA PA-C Consulting Brea vailable VARUN LORA, FLIP Primary Care Unavailable FLIP MARTIN MD Attending Unavailable PHYSICIAN, NONE Primary Care Unavailable RONY OMER, BRITTNI Attending Unavailalice MARTIN MD, NEALA Primary Care Unavailable MADELINE APARICIO Attending Unavailable PHYSICIAN, NONE Primary Care Unavailable OLE PACE MD Attending Unavailable ISABELLA LORA, Ph.D, VIRAL Choe Attending Unavailalice MASON MD, Ph.D, VIRAL Choe Consulting Unavailalice MARTIN MD, FLIP Primary Care Unavailable OLE MONK MD Consulting Unavailable PHYSICIAN, NONE Primary Care Unavailable RONY OMER, BRITTNI Attending Unavailalice ROSARIO MD, DALY Consulting Unavailable FLIP MARTIN MD Attending Unavailable VARUN LORA, FLIP Admitting Unavailable VARUN LORA, FLIP Primary Care Unavailable JOHANNA JEAN BAPTISTE MD [...] Care Unavailable HARITHA CLAY DO Attending Unavailable VARUN LORA, FLIP Primary Care Unavailable FLIP MARTIN MD Attending Unavailable OTHER, PROVIDER NOT SPECIFIED Primary Care Un available OLE PACE MD Attending Unavailable OLE PACE MD Primary Care Physician Lida Stafford Unavailable Unavailable Dr. Jatin Garcia MD Emergency Provider OLE PACE Primary Care Provider Jatin Garcia Attending Unavailable AKIN REY Primary Care Unavailable Ben Fonseca MD Unavailable ALICIA RODRIGUEZ MD Primary Care Unavailable ALICIA RODRIGUEZ MD Attending Unavailable ALICIA RODRIGUEZ MD Admitting Unavailable RADHA, GUCCI E Primary Care Unavailable RADHA, GUCCI E Attending Unavailable RADHA, GUCCI E Admitting Unavailable CSERNYIK, CHRISTO DO Primary Care Unavailable CSERNYIK, CHRISTO DO Attending Unavailable CSERNYIK, CHRISTO DO Admitting Unavailable OMLEY, BEATRICE DO Primary Care Unavailable OMLEY, BEATRICE DO Attending Unavailable OMLEY, BEATRICE DO Admitting Unavailable FLIP MARTIN MD Consulting Unavailable FLIP MARTIN MD Primary Care Unavailable FLIP MARTIN MD Attending Unavailable FLIP MARTIN MD Admitting Unavailable PROVIDER, UNKNOWN Consulting Unavailable GONZALEZ CARTER DO Primary Care Unavailable DIDGONZALEZ ORTIZ DO Attending Unavailable GONZALEZ CARTER DO Admitting Unavailable DIDGONZALEZ ORTIZ DO Primary Care Unavailable DIDGONZALEZ ORTIZ DO Attending Unavailable GONZALEZ CARTER DO Admitting Unavailable GONZALEZ CARTER DO Primary Care Unavailable GONZALEZ CARTER DO Attending Unavailable GONZALEZ CARTER DO Admitting Unavailable ALICIA RODRIGUEZ MD Primary Care Unavailable ALICIA RODRIGUEZ MD Attending Unavailable ALICIA RODRIGUEZ MD Admitting Unavailable KORINA AGUILAR MD Primary Care Unavailable KORINA AGUILAR MD Attending Unavailable KORINA AGUILAR MD Admitting Unavailable GONZALEZ CARTER DO Primary Care Unavailable GONZALEZ CARTER DO Attending Unavailable DIDGONZALEZ ORTIZ DO Admitting Unavailable DIDGONZALEZ ORTIZ DO Primary Care Unavailable DIDGONZALEZ ORTIZ DO Attending Unavailable GONZALEZ CARTER DO Admitting Unavailable RADHA, GUCCI E Primary Care Unavailable RADHA, GUCCI E Attending Unavailable RADHA, GUCCI E Admitting Unavailable GONZALEZ CARTER DO Primary Care Unavailable GONZALEZ CARTER DO Attending Unavailable GONZALEZ CARTER DO Admitting Unavailable RADHA, GUCCI E Primary Care Unavailable RADHA, GUCCI E Attending Unavailable RADHA, GUCCI E Admitting Unavailable RADHA, GUCCI E Primary Care Unavailable RADHA, GUCCI E Attending Unavailable RADHA, GUCCI E Admitting Unavailable DIDGONZALEZ ORTIZ DO Primary Care Unavailable GONZALEZ CARTER DO Attending Unavailable GONZALEZ CARTER DO Admitting Unavailable GABBY MANDEL DO Primary Care Unavailable GABBY MANDEL DO Attending Unavailable GABBY MANDEL DO Admitting Unavailable DIDGONZLAEZ ORTIZ DO Primary Care Unavailable GONZALEZ CARTER DO Attending Unavailable GONZALEZ CARTER DO Admitting Unavailable AL, NEMR BADALICE Primary Care Unavailable AL, NEMR BADALICE Attending Unavailable AL, NEMR BADALICE Admitting Unavailable DR OLI HERRERA MD Admitting Unavailable SANJEEV LORA, OLE A Primary Care Unavailable STEVEN LORA, SKY Attending Unavailable OLE PACE MD Attending Unavailable SANJEEV LORA, OLE A Primary Care Unavailable MAAME LORA, NASRIN Attending Unavailable SANJEEV LORA, OLE A Primary Care Unavailable SANJEEV LORA, OLE Jenkins Attending Unavailable SANJEEV LORA, OLE A Primary Care Unavailable MAAME LORA, NASRIN Attending Unavailable SANJEEV LORA, OLE A Primary Care Unavailable SANJEEV LORA, OLE A Attending Unavailable SANJEEV LORA, OLE A Primary Care Unavailable CLOTILDE RANDHAWA DO Consulting Unavailable MAAME LORA, NASRIN Attending Unavailable SANJEEV LORA, OLE A Primary Care Unavailable SANJEEV LORA, OLE Jenkins Attending Unavailable SANJEEV LORA, OLE A Primary Care Unavailable SANJEEV LORA, OLE Jenkins Attending Unavailable SANJEEV LORA, OLE A Primary Care Unavailable SANJEEV LORA, OLE Jenkins Attending Unavailable SANJEEV LORA, OLE A Primary Care Unavailable SANJEEV LORA, OLE A Primary Care Unavailable JENNI RHIANNON Admitting Unavailable GUCCI MACKEY DO Attending Unavailable CLOTILDE RANDHAWA DO Consulting Unavailable OLE PANTOJA MD, I Consulting Unavailable OLE PACE MD A Primary Care Unavailable JENNI RHIANNON Admitting Unavailable SANTINO SAWYER MD Consulting Unavailable DR LUZMA FLORES DO Attending Unavailable GONZALEZ SANDERS MD Consulting Unavailable OLE PACE MD Consulting Unavailable OLE PACE MD Primary Care Unavailable GONZALEZ SANDERS MD Consulting Unavailable BHUPENDRA GALVEZ DO Admitting Unavailable FRED CARBAJAL MD Attending Unavailable GONZALEZ SANDERS MD Attending Unavailable OLE PACE MD Primary Care Unavailable OLE PACE MD Primary Care Unavailable LEONARDO NULL Attending Unavaila OLE Wong MD A Primary Care Unavailable OLE PACE MD Attending Unavailable OLE PACE MD Primary Care Unavailable GONZALEZ SANDERS MD Attending Unavailable CLOTILDE RANDHAWA DO Attending Unavailable OLE PACE MD A Primary Care Unavailable DR MADELINE APARICIO MD Attending Unavailable OLE PACE MD Primary Care Unavailable OLE PACE MD Primary Care Unavailable PINA CARBALLO Attending Unavail able TADEO LEIJA PA-C Attending UnavailOLE Mcknight MD A Primary Care Unavailable VON BACA MD Attending Unavaila CLOTILDE Vasquez DO Consulting Unavailable OLE PACE MD A Primary Care Unavailable CHO MD, MARIN Consulting Unavailable AVILA OMER, PINA Jenkins Attending Unavail josias PACE MD, OLE A Primary Care Unavailable OLE MONK MD Consulting Unavailable AVILA OMER, PINA Jenkins Attending Unavail able SANJEEV LORA, OLE A Primary Care Unavailable MAAME LORA, NASRIN Attending Unavailable SANJEEV LORA, OLE A Primary Care Unavailable YUNIEL GUDINO, NAYELI Consulting Unavailcydney ISABEL MD, NASRIN Attending Unavailable SANJEEV LORA, OLE A Primary Care Unavailable GARTH GOSS MD Consulting Unavailable AVILA OMER, PINA Jenkins Attending Unavail able SANJEEV LORA, OLE A Primary Care Unavailable GONZALEZ SANDERS MD Attending Unavailable SANJEEV LORA, OLE A Primary Care Unavailable CYNTHIA GUDINO, DR ARLEY Germain Attending Unavailable SANJEEV LORA, OLE A Primary Care Unavailable DELMAR MICHAEL DO Attending Unavailable SANJEEV LORA, OLE A Primary Care Unavailable BALDOMERO LORA, GUCCI Mendosa Attending Unavailable SANJEEV LORA, OLE A Primary Care Unavailable SANJEEV LORA, OLE A Primary Care Unavailable BALDOMERO LORA, GUCCI Mendosa Attending Unavailable AVILA LORA, OLE Smith Consulting Unavailable SANJEEV LORA, OLE A Primary Care Unavailable JASKARAN MEDRANO MD Attending Unavailable Allergies Allergy Classification Reported Allergen(s) Allergy Type Date of Onset Reaction(s) Facility Haloperidol (1 source) Haloperidol; Translations: [haloperidol] Drug Allergy Tongue swelling (finding) [facility] Penicillins (antibiotic) (1 source) Penicillin; Translations: [penicillins] Drug Allergy Weal (disorder) [facility] (10 sources) Codeine; Translations: [codeine] Drug Allergy [facility] (1 source) oxyCODONE; Translations: [oxycodone] Drug Allergy Vomitting, Nausea [facility] (20 sources) Penicillin; Translations: [penicillins] Drug Allergy Weal (disorder) [facility] (20 sources) [place] - fruit Food allergy Tongue swelling (finding), Difficulty breathing (finding) [facility] (20 sources) Haloperidol; Translations: [haloperidol] Drug Allergy 5 Tongue swelling (finding) [facility] (1 source) Penicillins Allergy to substance 5 [facility] (1 source) Haloperidol Drug Allergy [facility] (1 source) Penicillins Drug allergy (disorder) [facility] (1 source) Haloperidol Drug Allergy [facility] (1 source) Penicillins Drug allergy (disorder) [facility] Medications Current Medications Medication Drug Class(es) [...] tab(s), 1 Refill(s), 08/30/22 13:02:00 EDT, Pharmacy: [facility], 167.6, cm, 08/08/22 16:51:00 EDT, [...] day(s), # 120 tab(s), 0 Refill(s), Pharmacy: [facility], Cervical cancer, 167.6, cm, 01/01/23 16:31:00 EST, Height, 47.7, kg, 01/01/23 16:31:00 EST, Dosing Weight Start Date: 01/21/23 Stop Date: 02/20/23 Status: Ordered Start: 12-19-2022 End: 01-18-2023 take 1 tablet by mouth every six hours acetaminophen-oxyCODONE 325 mg-5 mg oral tablet Dose = 1 tab(s), Oral, q6hr, X 30 day(s), # 120 tab(s), 0 Refill(s), Pharmacy: [facility], Cervical cancer, 167.6, cm, 11/15/22 9:52:00 EST, Height, 50, kg, 11/15/22 9:52:00 EST, Dosing Weight Start Date: 12/19/22 Stop Date: 01/18/23 Status: Ordered Start: 10-21-2022 End: 11-20-2022 take 1 tablet by mouth every six hours acetaminophen-oxyCODONE 325 mg-5 mg oral tablet Dose = 1 tab(s), Oral, q6hr, X 30 day(s), # 120 tab(s), 0 Refill(s), Pharmacy: [facility], Cervical cancer, 167.6, cm, 09/30/22 17:45:00 EST, Height, 50.4, kg, 09/30/22 17:45:00 EST, Dosing Weight Start Date: 10/21/22 Stop Date: 11/20/22 Status: Ordered Start: 09-18-2022 End: 10-18-2022 take 1 tablet by mouth every six hours acetaminophen-oxyCODONE 325 mg-5 mg oral tablet Dose = 1 tab(s), Oral, q6hr, X 30 day(s), # 120 tab(s), 0 Refill(s), Pharmacy: [facility], Cervical cancer, 167.6, cm, 08/08/22 16:51:00 EDT, Height, 52.5, kg, 08/08/22 16:51:00 EDT, Dosing Weight Start Date: 09/18/22 Stop Date: 10/18/22 Status: Ordered Start: 07-22-2022 End: 08-21-2022 take 1 tablet by mouth every six hours acetaminophen-oxyCODONE 325 mg-5 mg oral tablet Dose = 1 tab(s), Oral, q6hr, X 30 day(s), # 120 tab(s), 0 Refill(s), Pharmacy: [facility], Cervical cancer, 167.6, cm, 07/04/22 10:37:00 EDT, Height, 45.4 Start Date: 07/22/22 Stop Date: 08/21/22 Status: Ordered Start: 06-19-2022 End: 07-19-2022 take 1 tablet by mouth every six hours as needed for pain acetaminophen-oxyCODONE 325 mg-5 mg oral tablet Dose = 1 tab(s), Oral, q6hr, PRN for pain, X 30 day(s), # 120 tab(s), 0 Refill(s), Pharmacy: [facility], Cervical ca Cancer related pain, [...] day(s), # 120 tab(s), 0 Refill(s), Pharmacy: [facility], Cervical ca Cancer related pain, [...] day(s), # 120 tab(s), 0 Refill(s), Pharmacy: [facility], Cervical ca, 167.6, cm, 01/28/22 [...] day(s), # 120 tab(s), 0 Refill(s), Pharmacy: [facility], Cervical ca, 167.6, cm, 12/21/21 [...] day(s), # 180 tab(s), 0 Refill(s), Pharmacy: [facility], Cervical cancer, 167.6, cm, 05/22/21 [...] MDI (90 mcg/inh) CFC free inhalation aerosol (8 sources) Start: 08-06-2024 take 2 puff(s) by [...] BID, # 60 tab(s), 1 Refill(s), Pharmacy: [facility], 167.6, cm, 05/22/21 17:26:00 EDT, [...] food, # 120 EA, 0 Refill(s), Pharmacy: [facility], 167.6, cm, 05/15/23 15:33:00 EDT, Height Start Date: 05/15/23 Status: Ordered ciprofloxacin 500 mg oral tablet (3 sources) Quinolone Antimicrobial Start: 05-07-2023 End: 05-17-2023 ciprofloxacin 500 mg oral tablet Dose : 500 mg = 1 tab(s), Oral, q12h, X 10 day(s), # 20 tab(s), 0 Refill(s), 05/17/23 6:33:00 EDT, Pharmacy: [facility], 167, cm, 04/28/23 13:10:00 EDT, Height, 63.9 Start Date: 05/07/23 Stop Date: 05/17/23 Status: Ordered Start: 01-06-2023 End: 01-10-2023 ciprofloxacin 500 mg oral ta blet Dose : 500 mg = 1 tab(s), Oral, q12h, X 4 day(s), # 9 tab(s), 0 Refill(s), 01/10/23 14:45:00 EST, Pharmacy: [facility], 167.6, cm, 01/01/23 16:31:00 EST, Height, 47.7 Start Date: 01/06/23 Stop Date: 01/10/23 Status: Ordered cyclobenzaprine hydrochloride 5 mg oral tablet (1 source) Muscle Relaxant Start: 08-16-2022 End: 08-26-2022 cyclobenzaprine 5 mg oral tablet Dose : 5 mg = 1 tab(s), Oral, TID, PRN Muscle spasm, X 10 day(s), # 30 tab(s), 0 Refill(s), 08/26/22 13:05:00 EDT, Pharmacy: [facility], 167.6, cm, 08/08/22 16:51:00 EDT, Height Start Date: 08/16/22 Stop Date: 08/26/22 Status: Ordered DAPTOmycin 500 mg injection (2 sources) Lipopeptide Antibacterial Start: 05-07-2023 End: 05-17-2023 inject 1 dose intravenously every twenty-four hours DAPTOmycin 500 mg intravenous injection Dose : 383.4 mg =, Intravenous, q24h, X 10 day(s), # 10 EA, 0 Refill(s), 05/17/23 6:32:00 EDT, Pharmacy: [facility], 167, cm, 04/28/23 13:10:00 EDT, Height, 63.9 Start Date: 05/07/23 Stop Date: 05/17/23 Status: Ordered docusate sodium 100 mg oral capsule (4 sources) Start: 10-08-2022 Colace 100 mg oral capsule Dose : 100 mg = 1 cap(s), Oral, BID, PRN as needed for constipation, # 60 cap(s), 2 Refill(s), Pharmacy: [facility], 167.6, cm, 09/30/22 17:45:00 EST, Height, kg, 09/30/22 17:45:00 EST, Dosing Weight Start Date: 10/08/22 Status: Ordered dronabinol 2.5 mg oral capsule (1 source) Cannabinoid Start: 10-08-2022 End: 10-29-2022 Marinol 2.5 mg oral capsule Dose : 2.5 mg = 1 cap(s), Oral, BID, X 21 day(s), # 42 cap(s), 0 Refill(s), 10/29/22 14:33:00 EST, Pharmacy: [facility], Cervical cancer Decreased appetite, 167.6, cm, 09/30/22 17:45:00 EST, Height, 50.4 Start Date: 10/08/22 Stop Date: 10/29/22 Status: Ordered escitalopram 20 mg oral tablet (20 sources) Serotonin Reuptake Inhibitor Start: 2024 Lexapro 20 mg oral tablet Dose : 20 mg = 1 tab(s), Oral, qDay, # 30 tab(s), 5 Refill(s), Pharmacy: [facility] 167.6, cm, 12/22/24 8:11:00 EST, Height, kg, 12/22/24 8:11:00 EST, Dosing Weight Start Date: 12/28/24 Status: Ordered Quantity: 30.0 Unit: tab(s) Repeat number: 6 Start: 06-17-2024 Lexapro 20 mg oral tablet Dose : 20 mg = 1 tab(s), Oral, qDay, # 30 tab(s), 5 Refill(s), Pharmacy: [facility] 167.6, cm, 06/09/24 6:47:00 EDT, Height, kg, 06/09/24 6:47:00 EDT, Dosing Weight Start Date: 06/17/24 Status: Ordered Start: 03-16-2024 Lexapro 20 mg oral tablet Dose : 20 mg = 1 tab(s), Oral, qDay, # 30 tab(s), 2 Refill(s), Pharmacy: [facility] 167.6, cm, 03/04/24 9:28:00 EDT, Height, kg, 03/04/24 9:28:00 EDT, Dosing Weight Start Date: 03/16/24 Status: Ordered Start: 01-06-2024 Lexapro 10 mg oral tablet Dose : 10 mg = 1 tab(s), Oral, qDay, # 30 tab(s), 1 Refill(s), Pharmacy: [facility], 167.6, cm, 01/06/24 10:18:00 EST, Height, kg, 01/06/24 10:18:00 EST, Dosing Weight Start Date: 01/06/24 Status: Ordered Start: 12-08-2023 Lexapro 10 mg oral tablet Dose : 10 mg = 1 tab(s), Oral, qDay, # 30 tab(s), 1 Refill(s), Pharmacy: [facility], 167.6, cm, 12/08/23 14:57:00 EST, Height, kg, 12/08/23 14:57:00 EST, Dosing Weight Start Date: 12/08/23 Status: Ordered Start: 09-12-2023 escitalopram 1 0 mg oral tablet Dose : 10 mg = 1 tab(s), Oral, qDay, # 30 tab(s), 1 Refill(s), Pharmacy: [facility] 167.6, cm, 09/03/23 13:59:00 EDT, Height, kg, 09/03/23 13:59:00 EDT, Dosing Weight Start Date: 09/12/23 Status: Ordered estrogens, conjugated (detention) 0.625 mg / medroxyPROGESTERone acetate 2.5 mg oral tablet (2 sources) Progestin, Estrogen Start: 02-21-2022 take 1 tablet by mouth once daily Prempro 0.625 mg-2.5 mg oral tablet Dose = 1 tab(s), Oral, qDay, # 90 tab(s), 2 Refill(s), Pharmacy: [facility], 167.6, cm, 02/21/22 15:19:00 EDT, Height Start Date: 02/21/22 Status: Ordered HYDROmorphone hydrochloride 2 mg oral tablet (2 sources) Opioid Agonist Start: 08-16-2022 End: 08-21-2022 Dilaudid 2 mg oral tablet Dose : 2 mg = 1 tab(s), Oral, q4h, PRN as needed for pain, X 5 day(s), # 28 tab(s), 0 Refill(s), 08/21/22 13:06:00 EDT, Pharmacy: [facility], Cancer related pain History of radiation therapy, 167.6, cm, 08/08/22 16:51:00 EDT, Height, 52.5 Start Date: 08/16/22 Stop Date: 08/21/22 Status: Ordered Start: 04-19-2022 End: 04-26-2022 Dilaudid 2 mg oral tablet Do se : 1 mg = 0.5 tab(s), Oral, q4h, PRN as needed for pain, # 28 tab(s), 0 Refill(s), Pharmacy: [facility], Cervical cancer Cancer related pain, [...] hours, # 30 patch(es), 0 Refill(s), Pharmacy: [facility], 167.6, cm, 08/08/22 16:51:00 EDT, Height, 52.5 Start Date: 08/16/22 Status: Ordered LORazepam 1 mg oral tablet (20 sources) Benzodiazepine Start: 2024 Ativan 1 mg or al tablet Dose : 1 mg = 1 tab(s), Oral, TID, PRN as needed for anxiety, # 90 tab(s), 2 Refill(s), Pharmacy: [facility] Palliative care patient THO (generalized anxiety disorder), 165.1, cm, 03/30/25 11:05:00 EDT, Height, 53.1, kg, 03/30/25 11:05:00 EDT, Dosing Weight Start Date: 03/31/25 Status: Ordered Quantity: 90.0 Unit: tab(s) Repeat number: 3 Indications: Encounter for palliative care; Generalized anxiety disorder; Start: 07-15-2024 End: 09-13-2024 Ativan 1 mg oral tablet Dose : 1 mg = 1 tab(s), Oral, BID, PRN as needed for anxiety, # 60 tab(s), 1 Refill(s), Pharmacy: [facility] Palliative care patient THO (generalized anxiety disorder), 167.6, cm, 06/21/24 11:41:00 EDT, Height, 62.2, kg, 06/21/24 11:41:00 EDT, Dosing Weight Start Date: 07/15/24 Stop Date: 09/13/24 Status: Ordered Start: 05-14-2024 End: 07-13-2024 Ativan 1 mg oral tablet Dose : 1 mg = 1 tab(s), Oral, BID, PRN as needed for anxiety, # 60 tab(s), 1 Refill(s), Pharmacy: [facility] Palliative care patient THO (generalized anxiety disorder), 167.6, cm, 04/28/24 11:26:00 EDT, Height, 62.5, kg, 04/28/24 11:26:00 EDT, Dosing Weight Start Date: 05/14/24 Stop Date: 07/13/24 Status: Ordered Start: 01-06-2024 End: 04-18-2024 Ativan 1 mg oral tablet Dose : 1 mg = 1 tab(s), Oral, BID, PRN as needed for anxiety, # 60 tab(s), 0 Refill(s), Pharmacy: [facility], Palliative care patient THO (generalized anxiety disorder), 167.6, cm, 03/04/24 9:28:00 EDT, Height, 60, kg, 03/04/24 9:28:00 EDT, Dosing Weight Start Date: 03/19/24 Stop Date: 04/18/24 Status: Ordered Start: 11-19-2023 LORazepam 1 mg oral tablet Dose : 1 mg = 1 tab(s), Oral, BID, # 60 tab(s), 0 Refill(s), Pharmacy: [facility] Cancer related pain History of cervical cancer, 167.6, cm, 11/19/23 9:33:00 EST, Height, 61.3, kg, 11/19/23 9:33:00 EST, Dosing Weight Start Date: 11/19/23 Status: Ordered Start: 10-20-2023 LORazepam 1 mg oral tablet Dose : 1 mg = 1 tab(s), Oral, BID, # 60 tab(s), 0 Refill(s), Pharmacy: [facility] Cancer related pain History of cervical cancer, 167.6, cm, 09/03/23 13:59:00 EDT, Height, 63.6, kg, 09/03/23 13:59:00 EDT, Dosing Weight Start Date: 10/20/23 Status: Ordered Start: 08-21-2023 LORazepam 1 mg oral tablet Dose : 1 mg = 1 tab(s), Oral, BID, # 60 tab(s), 1 Refill(s), Pharmacy: [facility] Cancer related pain History of cervical cancer, [...] 0 Refill(s), 07/25/23 1:35:00 PM EDT, Pharmacy: [facility] Anxiety Cervical ca, 167.6, cm, 07/09/23 7:02:00 EDT, Height, 62.8, kg, 07/09/23 7:02:00 EDT, Dosing Weight Start Date: 07/16/23 Stop Date: 07/25/23 Status: Ordered Start: 09-24-2021 End: 03-14-2023 Ativan 1 mg oral tablet Dose : 1 mg = 1 tab(s), Oral, TID, PRN PRN as needed for anxiety, X 30 day(s), # 90 tab(s), 0 Refill(s), 03/14/23 9:57:00 EDT, Pharmacy: [facility], Cervical cancer Anxiety, 167.6, cm, 01/01/23 16:31:00 EST, Height, 47.7, kg, 01/01/23 16:... Start Date: 02/12/23 Stop Date: 03/14/23 Status: Ordered Start: 06-22-2021 End: 09-20-2021 Ativan 1 mg oral tablet Dose : 1 mg = 1 tab(s), Oral, TID, X 30 day(s), # 90 tab(s), 2 Refill(s), 09/20/21 15:11:00 EST, Pharmacy: [facility], Cervical cancer, 167.6, cm, 05/22/21 17:26:00 EDT, Height, 45.4, kg, 05/22/21 17:26:00 EDT, Dosing Weight Start Date: 06/22/21 Stop Date: 09/20/21 Status: Ordered megestrol 40 mg/mL oral suspension (1 source) Start: 05-17-2021 take 1 dose by mouth once daily megestrol 40 mg/mL oral suspension Dose : 800 mg = 20 mL, Oral, Daily, # 600 mL, 2 Refill(s), Pharmacy: [facility], 167.6, cm, 05/17/21 14:03:00 EDT, [...] 1 Refill(s), 12/19/23 10:06:00 AM EST, Pharmacy: [facility] 167.6, cm, 11/19/23 9:33:00 EST, Height, kg, 11/19/23 9:33:00 EST, Dosing Weight Start Date: 11/19/23 Stop Date: 12/19/23 Status: Ordered mirtazapine 15 mg oral table t (10 sources) Start: 07-04-2023 mirtazapine 15 mg oral tablet Dose : 15 mg = 1 tab(s), Oral, qDay, # 30 tab(s), 0 Refill(s), Pharmacy: [facility] 167.6, cm, 06/24/23 13:14:00 EDT, Height, kg, 06/24/23 13:14:00 EDT, Dosing Weight Start Date: 07/04/23 Status: Ordered Start: 06-03-2023 mirtazapine 15 mg oral tablet Dose : 15 mg = 1 tab(s), Oral, qDay, # 30 tab(s), 0 Refill(s), Pharmacy: [facility], 167.6, cm, 05/15/23 15:33:00 EDT, Height, kg, 05/15/23 15:33:00 EDT, Dosing Weight Start Date: 06/03/23 Status: Ordered Start: 04-28-2023 mirtazapine 15 mg oral tablet Dose : 15 mg = 1 tab(s), Oral, qDay Start Date: 04/28/23 Status: Ordered Start: 01-06-2023 mirtazapine 15 mg oral tablet Dose : 15 mg = 1 tab(s), Oral, qDay, # 30 tab(s), 3 Refill(s), Pharmacy: [facility], 167.6, cm, 01/01/23 16:31:00 EST, [...] q12h, # 60 tab(s), 0 Refill(s), Pharmacy: [facility] Cervical cancer, 167.6, cm, 05/15/23 15:33:00 [...] q12h, # 28 tab(s), 0 Refill(s), Pharmacy: [facility], Cervical cancer, 167, cm, 04/28/23 13:10:00 EDT, Height, 63.9 Start Date: 05/07/23 Stop Date: 05/21/23 Status: Ordered Start: 03-04-2023 take 1 tablet by saloni th every hour, then take 1 tablet by mouth every twelve hours MS Contin 30 mg/8-12 hrs oral tablet, extended release Dose : 30 mg = 1 tab(s), Oral, q12h, # 60 tab(s), 0 Refill(s), Pharmacy: [facility], Cervical cancer Cancer related pain, 167.6, cm, 02/23/23 21:09:00 EDT, Height, 55.7 Start Date: 03/04/23 Status: Ordered Start: 10-08-2022 End: 10-29-2022 take 1 tablet by mouth every hour, then take 1 tablet by mouth every twelve hours MS Contin 30 mg/8-12 hrs oral tablet, extended release Dose : 30 mg = 1 tab(s), Oral, q12h, # 42 tab(s), 0 Refill(s), Pharmacy: [facility], Cervical cancer, 167.6, cm, 09/30/22 17:45:00 EST, Height, 50.4 Start Date: 10/08/22 Stop Date: 10/29/22 Status: Ordered naproxen 250 mg oral tablet (4 sources) Nonsteroidal Anti-inflammatory Drug Start: 08-16-2022 naproxen 250 mg oral tablet Dose : 250 mg = 1 tab(s), Oral, BID, # 60 tab(s), 0 Refill(s), Pharmacy: [facility], 167.6, cm, 08/08/22 16:51:00 EDT, Height Start Date: 08/16/22 Status: Ordered nitrofurantoin, macrocrystals 25 mg / nitrofurantoin, monohydrate 75 mg oral capsule (1 source) Nitrofuran Antibacterial Start: 08-16-2022 End: 08-19-2022 Macrobid 100 mg oral capsule Dose : 100 mg = 1 cap(s), Oral, BID, Take with food, X 3 day(s), # 6 cap(s), 0 Refill(s), 08/19/22 13:08:00 EDT, Pharmacy: [facility], 167.6, cm, 08/08/22 16:51:00 EDT, Height, 52.5 Start Date: 08/16/22 Stop Date: 08/19/22 Status: Ordered Normal saline (14 sources) Start: 11-21-2022 Normal Saline Flush 0.9% injectable solution Dose : 0.09 gram(s) = 10 mL, IR Drain, Daily, # 300 mL, 12 Refill(s), Pharmacy: [facility], 167.6, cm, 11/15/22 9:52:00 EST, Height, kg, 11/15/22 9:52:00 EST, Dosing Weight Start Date: 11/21/22 Status: Ordered Start: 10-09-2022 Normal Saline Flush 0.9% injectable solution Dose : 0.09 gram(s) = 10 mL, IR Drain, Daily, # 300 mL, 12 Refill(s), Pharmacy: [facility], 167.6, cm, 09/30/22 17:45:00 EST, Height, kg, 09/30/22 17:45:00 EST, Dosing Weight Start Date: 10/09/22 Status: Ordered Start: 10-08-2022 Normal Saline Flush 0.9% injectable solution Dose : 0.09 gram(s) = 10 mL, IR Drain, Daily, # 300 mL, 12 Refill(s), Pharmacy: [facility], 167.6, cm, 09/30/22 17:45:00 EST, Height, kg, 09/30/22 17:45:00 EST, Dosing Weight Start Date: 10/08/22 Status: Ordered Start: 04-12-2021 Normal Saline Flush 0.9% injectable solution Dose : 0.09 gram(s) = 10 mL, IR Drain, Daily, # 300 mL, 12 Refill(s), Pharmacy: [facility], 167.6, cm, 04/12/21 10:36:00 EDT, Height, kg, 04/12/21 10:36:00 EDT, Dosing Weight Start Date: 04/12/21 Status: Ordered OLANZapine 5 mg oral tablet (3 sources) Atypical Antipsychotic Start: 06-21-2022 OLANZap ine 5 mg oral tablet Dose : 5 mg = 1 tab(s), Oral, qHS, # 90 tab(s), 3 Refill(s), Pharmacy: [facility], 167.6, cm, 05/23/22 11:20:00 EDT, Height, kg, 05/23/22 11:20:00 EDT, Dosing Weight Start Date: 06/21/22 Status: Ordered Start: 04-19-2022 OLANZapine 5 m g oral tablet Dose : 5 mg = 1 tab(s), Oral, qHS, # 30 tab(s), 1 Refill(s), Pharmacy: [facility], 167.6, cm, 04/14/22 22:09:00 EDT, Height Start Date: 04/19/22 Status: Ordered ondansetron 4 mg oral tablet (20 sources) 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 Start: 05-16-2025 ondansetron 4 mg ora l tablet Dose : 4 mg = 1 tab(s), Oral, TID, # 90 tab(s), 2 Refill(s), Pharmacy: [facility] 167.6, cm, 05/11/25 11:14:00 EDT, Height, kg, 05/11/25 11:14:00 EDT, Dosing Weight Start Date: 05/16/25 Status: Ordered Quantity: 90.0 Unit: tab(s) Repeat number: 3 Start: 04-26-2025 ondansetron 4 mg oral tablet Dose : 4 mg = 1 tab(s), Oral, BID, # 60 tab(s), 2 Refill(s), Pharmacy: [facility] 165.1, cm, 04/11/25 10:32:00 EDT, Height, kg, 04/11/25 10:32:00 EDT, Dosing Weight Start Date: 04/26/25 Status: Ordered Quantity: 60.0 Unit: tab(s) Repeat number: 3 Start: 12-10-2024 ondansetron 4 mg oral tablet Dose : 4 mg = 1 tab(s), Oral, BID, TAKE ONE TABLET BY MOUTH EVERY 8 HOURS NEEDED FOR NAUSEA AND VOMITING, # 60 tab(s), 2 Refill(s), Pharmacy: [facility] 167.6, cm, 02/16/25 7:20:00 EDT, Height, kg, 02/16/25 7:20:00 EDT, Dosing Weight Start Date: 02/17/25 Status: Ordered Quantity: 60.0 Unit: tab(s) Repeat number: 3 Start: 05-24-2024 ondansetron 4 mg oral tablet Dose : 4 mg = 1 tab(s), Oral, BID, TAKE ONE TABLET BY MOUTH EVERY 8 HOURS NEEDED FOR NAUSEA AND VOMITING, # 60 tab(s), 2 Refill(s), Pharmacy: [facility] 167.6, cm, 05/24/24 11:29:00 EDT, Height, kg, 05/24/24 11:29:00 EDT, Dosing Weight Start Date: 05/24/24 Status: Ordered Start: 03-16-2024 End: 04-30-2024 Zofran 4 mg oral tablet Dose : 4 mg = 1 tab(s), Oral, q8h, PRN Nausea/Vomiting, X 15 day(s), # 45 tab(s), 2 Refill(s), 04/30/24 4:58:00 PM EDT, Pharmacy: [facility] 167.6, cm, 03/04/24 9:28:00 EDT, Height, [...] 4 Refill(s), 02/07/24 9:38:00 AM EDT, Pharmacy: [facility] 167.6, cm, 11/19/23 9:33:00 EST, Height, kg, 11/19/23 9:33:00 EST, Dosing Weight Start Date: 11/24/23 Stop Date: 02/07/24 Status: Ordered Start: 04-28-2023 End: 10-30-2023 ondansetron 4 mg oral tablet Dose : 4 mg = 1 tab(s), Oral, q6h, PRN Nausea/Vomiting, # 60 tab(s), 2 Refill(s), Pharmacy: [facility] 167.6, cm, 09/03/23 13:59:00 EDT, Height, kg, 09/03/23 13:59:00 EDT, Dosing Weight Start Date: 09/15/23 Stop Date: 10/30/23 Status: Ordered Start: 01-23-2023 End: 02-22-2023 ondansetron 4 mg oral tablet Dose : 4 mg = 1 tab(s), Oral, q6h, PRN Nausea/Vomiting, # 120 tab(s), 0 Refill(s), Pharmacy: [facility], 167.6, cm, 01/01/23 16:31:00 EST, Height Start Date: 01/23/23 Stop Date: 02/22/23 Status: Ordered Start: 10-08-2022 End: 12-07-2022 Zofran 4 mg oral tablet Dose : 4 mg = 1 tab(s), Oral, q6h, PRN Nausea/Vomiting, # 60 tab(s), 1 Refill(s), Pharmacy: [facility], Cervical cancer, 167.6, cm, 09/30/22 17:45:00 EST, Height, kg, 09/30/22 17:45:00 EST, Dosing Weight Start Date: 11/06/22 Status: Ordered Start: 07-19-2022 End: 09-17-2022 Zofran 4 mg oral tablet Dose : 4 mg = 1 tab(s), Oral, q6h, PRN Nausea/Vomiting, Take 20-30 minutes prior to taking pain medication, # 120 tab(s), 1 Refill(s), Pharmacy: [facility], 167.6, cm, 07/04/22 10:37:00 EDT, Height, kg, 07/04/22 10:37:00 EDT, Dosing Weight Start Date: 07/19/22 Stop Date: 09/17/22 Status: Ordered Start: 03-14-2022 End: 06-18-2022 Zofran 4 mg oral tablet Dose : 4 mg = 1 tab(s), Oral, q6h, PRN Nausea/Vomiting, Take 20-30 minutes prior to taking pain medication, # 120 tab(s), 1 Refill(s), Pharmacy: [facility], 167.6, cm, 04/14/22 22:09:00 EDT, Height, kg, 04/14/22 22:09:00 EDT, Dosing Weight Start Date: 04/19/22 Stop Date: 06/18/22 Status: Ordered Start: 11-05-2021 End: 06-17-2022 take 1 dose by mouth every six hours ondansetron 4 mg oral disintegrating strip Dose : 4 mg = 1 film, Oral, q6h, X 30 day(s), # 30 film, 4 Refill(s), 06/17/22 12:00:00 EDT, Pharmacy: [facility], 167.6, cm, 01/16/22 19:29:00 EDT, Height, kg, 01/16/22 19:29:00 EDT, Dosing Weight Start Date: 01/18/22 Stop Date: 06/17/22 Status: Ordered Start: 08-07-2021 End: 10-06-2021 take 1 dose by mouth every six hours ondansetron 4 mg oral disintegrating strip Dose : 4 mg = 1 film, Oral, q6h, X 30 day(s), # 30 film, 1 Refill(s), 10/06/21 11:19:00 EST, Pharmacy: [facility], 167.6, cm, 05/22/21 17:26:00 EDT, Height, kg, 05/22/21 17:26:00 EDT, Dosing Weight Start Date: 08/07/21 Stop Date: 10/06/21 Status: Ordered take 9 tablets by [facility] every four hours as needed Zofran 4 mg oral tablet ; orally every 4 hours, As Needed Quantity: 0 Refills: 0 Ordered: 12-Jul-2021 Rod Cruz Status: Discontinued Generic Substitution Allowed oxyCODONE hydrochloride 5 mg oral tablet (20 sources) Opioid Agonist Start: 05-09-2025 oxyCODONE 5 mg oral tablet ( IMMEDIATE release ) Dose : 10 mg = 2 tab(s), Oral, q6h, PRN for pain, may fill today, # 240 tab(s), 0 Refill(s), Pharmacy: [facility] Cervical ca Cancer related pain, 164, cm, 05/05/25 2:46:00 EDT, Height, 51.4, kg, 05/05/25 2:46:00 EDT, Dosing Weight Start Date: 05/09/25 Status: Ordered Quantity: 240.0 Unit: tab(s) Repeat number: 1 Indications: Malignant neoplasm of cervix uteri, unspecified; Neoplasm related pain (acute) (chronic); Start: 04-11-2025 oxyCODONE 5 mg oral tablet ( IMMEDIATE release ) Dose : 10 mg = 2 tab(s), Oral, q6h, PRN for pain, # 240 tab(s), 0 Refill(s), Pharmacy: [facility] Cervical ca Cancer related pain, 165.1, cm, 04/11/25 10:32:00 EDT, Height, 50, kg, 04/11/25 10:32:00 EDT, Dosing Weight Start Date: 04/11/25 Status: Ordered Quantity: 240.0 Unit: tab(s) Repeat number: 1 Indications: Neoplasm related pain (acute) (chronic); Malignant neoplasm of cervix uteri, unspecified; Start: 04-09-2025 take 2 tablets by mo uth every six hours as needed for pain Oxycodone 5 mg tablet Active 10 mg PO EVERY 6 HOURS as needed for pain April 09, 2025 12:00am Start: 03-10-2025 oxyCODONE 5 mg oral tablet ( IMMEDIATE release ) Dose : 10 mg = 2 tab(s), Oral, q6h, PRN for pain, march dispense 03/11/25, # 240 tab(s), 0 Refill(s), Pharmacy: [facility] Cervical ca Cancer related pain, 165.1, [...] pain, # 240 tab(s), 0 Refill(s), Pharmacy: [facility] Cervical ca Cancer related pain, 167.6, cm, [...] today, # 240 tab(s), 0 Refill(s), Pharmacy: [facility] Cervical ca Cancer related pain, 167.6, cm, 07/19/24 11:26:00 EDT, Height, 60.9, kg, 07/19/24 11:26:00 EDT, Dosing Weight Start Date: 07/19/24 Status: Ordered Start: 05-24-2024 oxyCODONE 5 mg oral tablet ( IMMEDIATE release ) Dose : 5 mg = 1 tab(s), Oral, q6hr, PRN for pain, # 120 tab(s), 0 Refill(s), Pharmacy: [facility] Cancer related pain History of cervical cancer, 167.6, cm, 05/24/24 11:29:00 EDT, Height, 61.5, kg, 05/24/24 11:29:00 EDT, Dosing Weight Start Date: 05/24/24 Status: Ordered Start: 04-01-2024 oxyCODONE 5 mg oral tablet ( IMMEDIATE release ) Dose : 10 mg = 2 tab(s), Oral, q8h, PRN for pain, # 150 tab(s), 0 Refill(s), Pharmacy: [facility] Cancer related pain History of cervical cancer, 167.6, cm, 03/04/24 9:28:00 EDT, Height, 60, kg, 03/04/24 9:28:00 EDT, Dosing Weight Start Date: 04/01/24 Status: Ordered Start: 02-04-2024 oxyCODONE 5 mg oral tablet ( IMMEDIATE release ) Dose : 10 mg = 2 tab(s), Oral, q8h, PRN for pain, # 150 tab(s), 0 Refill(s), Pharmacy: [facility] Cancer related pain History of cervical cancer, 167.6, cm, 03/04/24 9:28:00 EDT, Height, 60, kg, 03/04/24 9:28:00 EDT, Dosing Weight Start Date: 03/04/24 Status: Ordered Start: 01-06-2024 oxyCODONE 10 m g oral tablet Dose : 10 mg = 1 tab(s), Oral, q8h, PRN for pain, # 90 tab(s), 0 Refill(s), Pharmacy: [facility], Cancer related pain History of cervical cancer, 167.6, cm, 01/06/24 10:18:00 EST, Height, 58.3, kg, 01/06/24 10:18:00 EST, Dosing Weight Start Date: 01/06/24 Status: Ordered Start: 12-08-2023 oxyCODONE 10 m g oral tablet Dose : 10 mg = 1 tab(s), Oral, q6h, PRN for pain, # 120 tab(s), 0 Refill(s), Pharmacy: [facility], Cancer related pain History of cervical cancer, 167.6, cm, 12/08/23 14:57:00 EST, Height, 58.2, kg, 12/08/23 14:57:00 EST, Dosing Weight Start Date: 12/08/23 Status: Ordered Start: 11-20-2023 OxyContin 10 m g oral tablet, extended release Dose : 10 mg = 1 tab(s), Oral, q12h, # 60 tab(s), 0 Refill(s), Pharmacy: [facility] Cervical ca, 167.6, cm, 11/19/23 9:33:00 EST, Height, 61.3, kg, 11/19/23 9:33:00 EST, Dosing Weight Start Date: 11/20/23 Status: Ordered Start: 11-05-2023 oxyCODONE 15 m g oral tablet ( IMMEDIATE release ) Dose : 15 mg = 1 tab(s), Oral, q6hr, PRN as needed for pain, # 120 tab(s), 0 Refill(s), Pharmacy: [facility] Cervical cancer, 167.6, cm, 10/22/23 10:21:00 EST, Height, 61.4, kg, 10/22/23 10:21:00 EST, Dosing Weight Start Date: 11/05/23 Status: Ordered Start: 10-16-2023 OxyContin 15 m g oral tablet, extended release Dose : 15 mg = 1 tab(s), Oral, BID, # 60 tab(s), 0 Refill(s), Pharmacy: [facility] Cancer related pain Cervical ca, 167.6, cm, 09/03/23 13:59:00 EDT, Height, 63.6, kg, 09/03/23 13:59:00 EDT, Dosing Weight Start Date: 10/16/23 Status: Ordered Start: 09-12-2023 oxyCODONE 15 m g oral tablet ( IMMEDIATE release ) Dose : 15 mg = 1 tab(s), Oral, q6hr, may fill on 10/05/23, # 120 tab(s), 0 Refill(s), Pharmacy: [facility] Cervical cancer, 167.6, cm, 09/03/23 13:59:00 EDT, Height, 63.6, kg, 09/03/23 13:59:00 EDT, Dosing Weight Start Date: 09/12/23 Status: Ordered Start: 09-12-2023 OxyContin 15 m g oral tablet, extended release Dose : 15 mg = 1 tab(s), Oral, BID, # 60 tab(s), 0 Refill(s), Pharmacy: [facility] Cancer related pain Cervical ca, 167.6, cm, 09/03/23 13:59:00 EDT, Height, 63.6, kg, 09/03/23 13:59:00 EDT, Dosing Weight Start Date: 09/12/23 Status: Ordered Start: 08-21-2023 oxyCODONE 10 m g oral tablet ( IMMEDIATE release ) Dose : 10 mg = 1 tab(s), Oral, q6h, PRN as needed for pain, # 120 tab(s), 0 Refill(s), Pharmacy: [facility] Cancer related pain History of cervical cancer, 167.6, cm, 08/21/23 15:13:00 EDT, Height, 64.2, kg, 08/21/23 15:13:00 EDT, Dosing Weight Start Date: 08/21/23 Status: Ordered Start: 08-06-2023 OxyContin 15 m g oral tablet, extended release Dose : 15 mg = 1 tab(s), Oral, BID, # 60 tab(s), 0 Refill(s), Pharmacy: [facility] Cancer related pain Cervical ca, 167.6, cm, 07/30/23 11:18:00 EDT, Height, 62.6, kg, 07/30/23 11:18:00 EDT, Dosing Weight Start Date: 08/06/23 Status: Ordered Start: 07-24-2023 End: 08-03-2023 oxyCODONE 5 mg oral tablet ( IMMEDIATE release ) Dose : 15 mg = 3 tab(s), Oral, q4hr, PRN as needed for pain, # 180 tab(s), 0 Refill(s), Pharmacy: [facility] Cancer related pain Cervical ca, 167.6, cm, 07/24/23 10:14:00 EDT, Height, 67.8, kg, 07/24/23 10:14:00 EDT, Dosing Weight Start Date: 07/24/23 Stop Date: 08/03/23 Status: Ordered Start: 07-15-2023 OxyContin 15 m g oral tablet, extended release Dose : 15 mg = 1 tab(s), Oral, BID, # 60 tab(s), 0 Refill(s), Pharmacy: [facility] Cancer related pain Cervical ca, 167.6, cm, 07/09/23 7:02:00 EDT, Height, 62.8, kg, 07/09/23 7:02:00 EDT, Dosing Weight Start Date: 07/15/23 Status: Ordered Start: 07-15-2023 End: 07-22-2023 oxyCODONE 5 mg oral tablet ( IMMEDIATE release ) Dose : 15 mg = 3 tab(s), Oral, q4hr, PRN as needed for pain, # 126 tab(s), 0 Refill(s), Pharmacy: [facility] Cancer related pain Cervical ca, 167.6, cm, [...] 0 Refill(s), 07/26/23 11:49:00 AM EDT, Pharmacy: [facility], [facility] Cervical cancer, 167.6, cm, 06/24/23 13:14:00 EDT, Height, 64, kg, 06/24/23 13:14:00 EDT, Dosing Weight Start Date: 06/26/23 Stop Date: 07/26/23 Status: Ordered Start: 05-07-2023 End: 05-17-2023 oxyCODONE 10 mg oral tablet ( IMMEDIATE release ) Dose : 10 mg = 1 tab(s), Oral, q4h, PRN Pain, X 5 day(s), # 30 tab(s), 0 Refill(s), 05/17/23 10:46:00 EDT, Pharmacy: [facility], Cervical cancer, 167, cm, 04/28/23 [...] tab(s), 0 Refill(s), 04/03/23 8:11:00 EDT, Pharmacy: [facility], Cervical cancer Cancer related pain, 167.6, cm, 02/23/23 21:09:00 EDT, Height, 55.7 Start Date: 03/04/23 Stop Date: 04/03/23 Status: Ordered Start: 10-08-2022 End: 10-29-2022 oxyCODONE 10 mg oral tablet ( IMMEDIATE release ) Dose : 10 mg = 1 tab(s), Oral, q4h, PRN abdominal discomfort, X 21 day(s), # 126 tab(s), 0 Refill(s), 10/29/22 14:33:00 EST, Pharmacy: [facility], Cervical cancer, 167.6, cm, 09/30/22 17:45:00 EST, Height, 50.4 Start Date: 10/08/22 Stop Date: 10/29/22 Status: Ordered pantoprazole 40 mg delayed release oral tablet (2 sources) Proton Pump Inhibitor Start: 11-19-2023 pantoprazole 40 mg o ral enteric coated tablet Dose : 40 mg = 1 tab(s), Oral, qDayAC, # 30 tab(s), 1 Refill(s), Pharmacy: [facility] 167.6, cm, 11/19/23 9:33:00 EST, Height, kg, 11/19/23 9:33:00 EST, Dosing Weight Start Date: 11/19/23 Status: Ordered potassium chloride 20 meq oral tablet (1 source) Start: 04-28-2024 Potassium Chlo ride (Bea-Kdeo-Xro M20) 20 mEq oral tablet, extended release [...] tab(s), 1 Refill(s), 06/18/22 15:02:00 EDT, Pharmacy: [facility], 167.6, cm, 04/14/22 22:09:00 EDT, Height Start Date: 04/19/22 Stop Date: 06/18/22 Status: Ordered sertraline 25 mg oral tablet (2 sources) Serotonin Reuptake Inhibitor Start: 08-21-2023 Zoloft 25 mg oral tablet Dose : 25 mg = 1 tab(s), Oral, qDay, # 30 tab(s), 1 Refill(s), Pharmacy: [facility] 167.6, cm, 08/21/23 15:13:00 EDT, Height, kg, 08/21/23 15:13:00 EDT, Dosing Weight Start Date: 08/21/23 Status: Ordered sulfamethoxazole 800 mg / trimethoprim 160 mg oral tablet (9 sources) Dihydrofolate Reductase Inhibitor Antibacterial, Sulfonamide Antimicrobial Start: 04-09-2025 Sulfamethoxazole-Tri met hoprim (Bactrim Ds) 800-160 mg tablet Active 1 {tbl} PO TWICE A DAY April 09, 2025 12:00am Start: 03-08-2025 End: 04-07-2025 take 1 tablet by mouth twice daily Bactrim DS 800 mg-160 mg oral tablet Dose = 1 tab(s), Oral, BID, X 30 day(s), # 60 tab(s), 0 Refill(s), Pharmacy: [facility] 165.1, cm, 03/08/25 14:18:00 EDT, Height, [...] day(s), # 10 tab(s), 0 Refill(s), Pharmacy: [facility], 167.6, cm, 01/01/23 16:31:00 EST, [...] hours Quantity: 20 Refills: 0 Ordered: 14-Jul-2021 Servetas, Shira Start: 14-Jul-2021 Generic Substitution Allowed tamsulosin hydrochloride 0.4 mg oral capsule (2 sources) alpha-Adrenergic Linsey Start: 07-19-2024 tamsu losin 0.4 mg oral capsule Dose : 0.4 mg = 1 cap(s), Oral, BID, # 30 cap(s), 2 Refill(s), Pharmacy: [facility], [facility] 167.6, cm, 07/19/24 11:26:00 EDT, Height, kg, [...] qHS, # 30 cap(s), 0 Refill(s), Pharmacy: [facility], Cervical cancer, 167.6, cm, 05/15/23 15:33:00 EDT, Height, 65.9, kg, 05/15/23 15:33:00 EDT, Dosing Weight Start Date: 06/09/23 Stop Date: 07/09/23 Status: Ordered Start: 04-28-2023 End: 06-07-2023 take 1 capsule by mouth once daily at bedtime gabapentin 300 mg oral capsule 1 cap(s), Oral, qHS, # 30 cap(s), 30, 0 Refill(s), Pharmacy: [facility], 167, cm, 04/28/23 13:10:00 EDT, [...] nausea/vomiting, # 40 supp, 0 Refill(s), Pharmacy: [facility], 167.6, cm, 08/08/22 16:51:00 EDT, [...] (ESBL) resistance] Episodic Calculus of urinary tract (14 sources) Kidney stone; Translations: [Ureteric stone] Onset: 04-04-2025 03-08-2025 Episodic Cancer of cervix (20 sources) Malignant tumor of cervix; Translations: [Malignant neoplasm of cervix uteri, unspecified] Onset: 08-08-2022 09-18-2020 Chronic Cancer of cervix (20 sources) History of malignant neoplasm of cervix; Translations: [Personal history of malignant neoplasm of cervix uteri] Onset: 12-08-2023 Episodic Cardiac dysrhythmias (1 source) Sinus bradycardia; Translations: [Bradycardia, unspecified] Onset: 04-17-2022 Episodic Chronic kidney disease (1 source) Chronic kidney disease stage 3; Translations: [Chronic kidney disease, stage 3 unspecified] Chronic Complication of device; implant or graft [...] Translations: [Essential (primary) hypertension] Onset: 07-09-2023 Chronic Fluid and electrolyte disorders (20 sources) Dehydration 04-16-2020 Episodic Gastritis and duodenitis (2 sources) Duodenitis; Translations: [Duodenitis without bleeding] Onset: 04-15-2022 Episodic Genitourinary symptoms and ill-defined conditions (10 sources) Urostomy present; Translations: [Other artificial openings of urinary tract status] Onset: 04-18-2022 Chronic Genitourinary symptoms and ill-defined conditions (20 sources) Urinary tract obstruction; Translations: [Retention of urine] Onset: 09-30-2022 04-16-2020 Episodic Menopausal disorders (20 sources) Premature menopause; Translations: [Asymptomatic premature menopause] Onset: 08-11-2022 Chronic Nausea and vomiting (20 sources) Nausea and vomiting; Translations: [Nausea with vomiting, unspecified] Onset: 04-15-2022 04-16-2020 Episodic Nutritional deficiencies (20 sources) Moderate protein energy malnutrition; Translations: [Moderate protein-calorie malnutrition (weight for age 60-74% of standard)] 04-16-2020 Chronic Other aftercare (5 sources) Seen by palliative care medicine service; Translations: [Encounter for palliative care] Onset: 04-04-2025 Episodic Other aftercare (1 source) Encounter for palliative care; Translations: [Encounter for palliative care] Onset: 05-27-2025 Episodic Other circulatory disease (3 sources) H/O: artificial organ/tissue; Translations: [Presence of other vascular implants and grafts] Onset: 08-09-2022 Chronic Other connective tissue disease (1 source) Pain in lower limb; Translations: [Pain in leg, unspecified] Onset: 03-03-2023 Episodic Other diseases of kidney and ureters (20 sources) Hydronephrosis; Translations: [Unspecified hydronephrosis] Onset: 04-05-2025 08-28-2023 Episodic Other diseases of kidney and ureters (3 sources) Unspecified hydronephrosis; Translations: [Unspecified hydronephrosis] Onset: 07-24-2023 Episodic Other diseases of kidney and ureters (1 source) Occlusion of ureter; 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 stricture of ureter without hydronephrosis] 04-09-2025 Episodic Other gastrointestinal disorders (1 source) Constipation, unspecified; Translations: [Constipation, unspecified] Onset: 08-13-2022 Episodic Other gastrointestinal disorders (1 source) Slow transit constipation; Translations: [Slow transit constipation] Onset: 02-25-2023 Episodic Other nervous system disorders (20 sources) Pain due to neoplastic disease; Translations: [Neoplasm related pain (acute) (chronic)] Onset: 02-23-2023 Chronic Other nervous system disorders (3 sources) Neoplasm related pain (acute) (chronic); Translations: [Neoplasm related pain (acute) (chronic)] Onset: 12-08-2023 Chronic Other nutritional; endocrine; and metabolic disorders (5 sources) Loss of appetite; Translations: [Anorexia] Onset: 04-18-2022 Episodic Other nutritional; endocrine; and metabolic disorders (20 sources) Decrease in appetite 04-18-2022 Episodic Other upper respiratory infections (1 source) Acute pharyngitis; Translations: [Acute pharyngitis, unspecified] Onset: 03-03-2023 Episodic Residual codes; unclassified (20 sources) Device in [...] disorders, not elsewhere classified] Onset: 04-28-2023 Episodic Unclassified (2 sources) ABNORMAL LABS 07-11-2021 Comment on above: ABNORMAL LABS Unclassified (1 source) FUV 07-13-2021 Comment on above: FUV Unclassified (20 sources) History of antineoplastic chemotherapy 09-18-2020 Unclassified (20 sources) Patient encounter status 05-23-2021 Unclassified (4 sources) History of SARS-CoV-2 08-08-2022 Urinary tract infections (20 sources) Urinary tract infectious disease; Translations: [Urinary tract infection, site not specified] Onset: 04-15-2022 07-11-2021 Episodic Past or Other Problems Problem Classification Problem Date Documented Da te Episodic/Chronic Residual codes; unclassified (2 sources) Pain, unspecified; Translations: [Pain, unspecified] Onset: 07-30-2023 Episodic Residual codes; unclassified (3 sources) Procedure and treatment not carried out due to patient leaving prior to being seen by health care provider; Translations: [Procedure and treatment not carried out due to patient leaving prior to being seen by health care provider] Onset: 06-24-2024 Episodic Results Test Name Value Interpretation Reference Range Facility .Auto Diffon 05-30-2025 Basophil, Absolute 0.1 10 3/mcL Normal 0.0-0.3 [facility] Comment on above: Performed By: #### G FR, ADIFF, ANEU, CBC, BMP ####[address] [address] Basophils/100 WBC (Bld) 0.9 % Normal 0.0-2.5 [facility] Comment on above: Performed By: #### G FR, ADIFF, ANEU, CBC, BMP ####[address] [address] Eosinophil, Absolute 0.3 10 3/mcL Normal 0.0-0.7 [facility] Comment on above: Performed By: #### G FR, ADIFF, ANEU, CBC, BMP ####[address] [address] Eosinophils/100 WBC (Bld) 3.9 % Normal 0.0-6.0 [facility] Comment on above: Performed By: #### G FR, ADIFF, ANEU, CBC, BMP ####[address] [address] Lymphocyte, Absolute 2.2 10 3/mcL Normal 0.9-4.3 [facility] Comment on above: Performed By: #### G FR, ADIFF, ANEU, CBC, BMP ####[address] [address] Lymphocytes/100 WBC (Bld) 27.4 % Normal 20.0-40.0 [facility] Comment on above: Performed By: #### G FR, ADIFF, ANEU, CBC, BMP ####[address] [address] Monocyte, Absolute 0.9 10 3/mcL Normal 0.1-1.4 [facility] Comment on above: Performed By: #### G FR, ADIFF, ANEU, CBC, BMP ####[place] [id number] [place] [address] Monocytes/100 WBC (Bld) 11.1 % Normal 2.0-13.0 [facility] Comment on above: Performed By: #### G FR, ADIFF, ANEU, CBC, BMP ####[address] [address] Neutrophils/100 WBC (Bld) 56.7 % Normal 50.0-75.0 [facility] Comment on above: Performed By: #### G FR, ADIFF, ANEU, CBC, BMP ####[address] [address] .GFRon 05-30-2025 Estimated Glomerular Filtration Rate 91 ml/min/1.73sqm Normal [facility] Comment on above: Result Comment: Stag es of Chronic Kidney Disease (CKD)Stage Description eGFR(ml/min/1.73 sq.m.)CKD 1 Normal kidney function or >=90 normal kindney function with possible kidney damage (ex. Proteinuria)CKD 2 Kidney damage with mild loss 60-89 of kidney functionCKD 3a Mild to moderate loss of kidney 45-59 functionCKD 3b Moderate to severe loss of 30-44 of kindey function CKD 4 Severe loss of kidney function 15-29CKD 5 Kidney failure <15Note: (go live 2024) the eGFR calculation was updated to the KD-EPI creatinine equation without a race factor to calculate theeGFR results. Performed By: #### G FR, ADIFF, ANEU, CBC, BMP ####[address] [address] .NEUABSon 05-30-2025 Neutrophil, Absolute 4.5 10 3/mcL Normal 2.3-8.1 [facility] Comment on above: Performed By: #### G FR, ADIFF, ANEU, CBC, BMP ####[address] [address] BMPon 05-30-2025 BUN/Creatinine Ratio 10.6 ratio Normal 10.0-22.0 [facility] Comment on above: Performed By: #### G FR, ADIFF, ANEU, CBC, BMP ####[address] [address] Calcium [Mass/Vol] 9.1 mg/dL Normal 8.7-10.4 [facility] Comment on above: Performed By: #### G FR, ADIFF, ANEU, CBC, BMP ####[address] [address] Chloride [Moles/Vol] 111 mmol/L High 98-110 [facility] Comment on above: Performed By: #### G FR, ADIFF, ANEU, CBC, BMP ####[address] [address] CO2 [Moles/Vol] 26 mmol/L Normal 22-32 [facility] Comment on above: Performed By: #### G FR, ADIFF, ANEU, CBC, BMP ####[address] [address] Creatinine [Mass/Vol] 0.85 mg/dL Normal 0.50-1.20 [facility] Comment on above: Result Comment: Test ing performed on Algisys analyzer using enzymatic creatinine methodology. Performed By: #### G FR, ADIFF, ANEU, CBC, BMP ####[address] [address] Electrolyte Balance 6.0 mEq/L Normal 4.0-15.0 [facility] Comment on above: Performed By: #### G FR, ADIFF, ANEU, CBC, BMP ####[address] [address] Glucose [Mass/Vol] 90 mg/dL Normal 70-110 [facility] Comment on above: Performed By: #### G FR, ADIFF, ANEU, CBC, BMP ####[address] [address] Potassium [Moles/Vol] 4.2 mmol/L Normal 3.5-5.0 [facility] Comment on above: Performed By: #### G FR, ADIFF, ANEU, CBC, BMP ####[address] [address] Sodium [Moles/Vol] 143 mmol/L Normal 136-145 [facility] Comment on above: Performed By: #### G FR, ADIFF, ANEU, CBC, BMP ####[place] [address] Urea nitrogen [Mass/Vol] 9.0 mg/dL Normal 8.0-22.0 [facility] Comment on above: Performed By: #### G FR, ADIFF, ANEU, CBC, BMP ####[place] [address] CBCon 05-30-2025 Erythrocyte distribution width (RBC) [Ratio] 15.1 % Normal 11.5-15.5 [facility] Comment on above: Performed By: #### G FR, ADIFF, ANEU, CBC, BMP ####[place] [address] Hematocrit (Bld) [Volume fraction] 38.6 % Normal 34.0-46.0 [facility] Comment on above: Performed By: #### G FR, ADIFF, ANEU, CBC, BMP ####[place] [address] Hgb 13.0 G/dL Normal 12.0-16.0 [facility] Comment on above: Performed By: #### G FR, ADIFF, ANEU, CBC, BMP ####[place] [address] MCH (RBC) [Entitic mass] 33.0 pg Normal 27.0-33.0 [facility] Comment on above: Performed By: #### G FR, ADIFF, ANEU, CBC, BMP ####[place] [address] MCHC 33.7 G/dL Normal 32.0-36.0 [facility] Comment on above: Performed By: #### G FR, ADIFF, ANEU, CBC, BMP ####[place] [address] MCV (RBC) [Entitic vol] 97.8 fL Normal 80.0-99.0 [facility] Comment on above: Performed By: #### G FR, ADIFF, ANEU, CBC, BMP ####[place] [address] Platelet 310 10 3/mcL Normal 150-450 [facility] Comment on above: Performed By: #### G FR, ADIFF, ANEU, CBC, BMP ####[address] [address] Platelet mean volume (Bld) [Entitic vol] 7.9 fL Normal 6.6-10.5 [facility] Comment on above: Performed By: #### G FR, ADMACEY, ANEU, CBC, BMP ####[address] [address] RBC 3.95 10 6/mcL Low 4.10-5.30 [facility] Comment on above: Performed By: #### G FR, ADMACEY, ANEU, CBC, BMP ####[address] [address] WBC 7.9 10 3/mcL Normal 4.5-10.8 [facility] Comment on above: Performed By: #### G FR, ADIFF, ANEU, CBC, BMP ####[place] [address] LABORATORYOrdered By: SYSTEM SYSTEM on 05-30-2025 Basophils (Bld) [#/Vol] 0.1 103/mcL Normal 0.0 - 0.3 10^3/mcL AH Workflow SS Basophils/100 WBC (Bld) 0.9 % Normal 0.0 - 2.5 % Workflow SS Calcium [Mass/Vol] 9.1 mg/dL Normal 8.7 - 10. 4 mg/dL ADM SS Chloride [Moles/Vol] 111 mmol/L High 98 - 11 0 mEq/L ADM SS CO2 [Moles/Vol] 26 mmol/L Normal 22 - 32 mEq/L ADM SS Creatinine [Mass/Vol] 0.85 mg/dL Normal 0.50 - 1.20 mg/dL ADM SS Comment on above: Interpretive Data: T esting performed on Algisys analyzer using enzymatic creatinine methodology. Electrolyte Balance 6.0 mEq/L Normal 4.0 - 15 .0 mEq/L ADM SS Eosinophils (Bld) [#/Vol] 0.3 103/mcL Normal 0.0 - 0.7 10^3/mcL AH Workflow SS Eosinophils/100 WBC (Bld) 3.9 % Normal 0.0 - 6.0 % AH Workflow SS Erythrocyte distribution width (RBC) [Ratio] 15.1 % Normal 11.5 - 15.5 % AH Workflow SS Estimated Glomerular Filtration Rate 91 ml/min/1.73sqm Invalid Interpretation Code Chemistry S Comment [...] to calculate the eGFR results. Glucose [Mass/Vol] 90 mg/dL Normal 70 - 110 mg/dL ADM SS Hematocrit (Bld) [Volume fraction] 38.6 % Normal 34.0 - 46.0 % AH Workflow SS Hemoglobin (Bld) [Mass/Vol] 13.0 G/dL Normal 12.0 - 16.0 G/dL AH Workflow SS Lymphocytes (Bld) [#/Vol] 2.2 103/mcL Normal 0.9 - 4.3 10^3/mcL AH Workflow SS Lymphocytes/100 WBC (Bld) 27.4 % Normal 20.0 - 40.0 % AH Workflow SS MCH (RBC) [Entitic mass] 33.0 pg Normal 27.0 - 33.0 pg AH Workflow SS MCHC 33.7 G/dL Normal 32.0 - 36.0 G/dL AH Workflow SS MCV (RBC) [Entitic vol] 97.8 fL Normal 80.0 - 99.0 fL AH Workflow SS Monocytes (Bld) [#/Vol] 0.9 103/mcL Normal 0.1 - 1.4 10^3/mcL AH Workflow SS Monocytes/100 WBC (Bld) 11.1 % Normal 2.0 - 13.0 % AH Workflow SS Neutrophils (Bld) [#/Vol] 4.5 103/mcL Normal 2.3 - 8.1 10^3/mcL AH Workflow SS Neutrophils/100 WBC (Bld) 56.7 % Normal 50.0 - 75.0 % Workflow SS Platelet mean volume (Bld) [Entitic vol] 7.9 fL Normal 6.6 - 10.5 fL Workflow SS Platelets (Bld) [#/Vol] 310 103/mcL Normal 150 - 450 10^3/mcL AH Workflow SS Potassium [Moles/Vol] 4.2 mmol/L Normal 3.5 - 5.0 mEq/L ADM SS RBC (Bld) [#/Vol] 3.95 106/mcL Low 4.10 - 5.3 0 10^6/mcL Workflow SS Sodium [Moles/Vol] 143 mmol/L Normal 136 - 145 mEq/L ADM SS Urea nitrogen [Mass/Vol] 9.0 mg/dL Normal 8.0 - 22.0 mg/dL ADM SS Urea nitrogen/Creatinine [Mass ratio] 10.6 ratio Normal 10.0 - 22.0 ratio ADM SS WBC (Bld) [#/Vol] 7.9 103/mcL Normal 4.5 - 10.8 10^3/mcL Workflow SS .Auto Diffon 05-29-2025 Basophil, Absolute 0.1 10 3/mcL Normal 0.0-0.3 [facility] Comment on above: Performed By: #### C BC, ADIFF, BMP, GFR, ANEU ####[address] [address] Basophils/100 WBC (Bld) 1.0 % Normal 0.0-2.5 [facility] Comment on above: Performed By: #### C BC, ADIFF, BMP, GFR, ANEU ####[address] [address] Eosinophil, Absolute 0.2 10 3/mcL Normal 0.0-0.7 [facility] Comment on above: Performed By: #### C BC, ADIFF, BMP, GFR, ANEU ####[place] [id number] [place] [address] Eosinophils/100 WBC (Bld) 2.4 % Normal 0.0-6.0 [facility] Comment on above: Performed By: #### C BC, ADIFF, BMP, GFR, ANEU ####[address] [address] Lymphocyte, Absolute 1.7 10 3/mcL Normal 0.9-4.3 [facility] Comment on above: Performed By: #### C BC, ADIFF, BMP, GFR, ANEU ####[address] [address] Lymphocytes/100 WBC (Bld) 20.8 % Normal 20.0-40.0 [facility] Comment on above: Performed By: #### C BC, ADIFF, BMP, GFR, ANEU ####[address] [address] Monocyte, Absolute 0.6 10 3/mcL Normal 0.1-1.4 [facility] Comment on above: Performed By: #### C BC, ADIFF, BMP, GFR, ANEU ####[address] [address] Monocytes/100 WBC (Bld) 7.7 % Normal 2.0-13.0 [facility] Comment on above: Performed By: #### C BC, ADIFF, BMP, GFR, ANEU ####[address] [address] Neutrophils/100 WBC (Bld) 68.1 % Normal 50.0-75.0 [facility] Comment on above: Performed By: #### C BC, ADIFF, BMP, GFR, ANEU ####[address] [address] .GFRon 05-29-2025 Estimated Glomerular Filtration Rate 99 ml/min/1.73sqm Normal [facility] Comment on above: Result Comment: Stag es of Chronic Kidney Disease (CKD)Stage Description eGFR(ml/min/1.73 sq.m.)CKD 1 Normal kidney function or >=90 normal kindney function with possible kidney damage (ex. Proteinuria)CKD 2 Kidney damage with mild loss 60-89 of kidney functionCKD 3a Mild to moderate loss of kidney 45-59 functionCKD 3b Moderate to severe loss of 30-44 of kindey function CKD 4 Severe loss of kidney function 15-29CKD 5 Kidney failure <15Note: (go live 2024) the eGFR calculation was updated to the KD-EPI creatinine equation without a race factor to calculate theeGFR results. Performed By: #### C BC, ADIFF, BMP, GFR, ANEU ####[address] [address] .NEUABSon 05-29-2025 Neutrophil, Absolute 5.7 10 3/mcL Normal 2.3-8.1 [facility] Comment on above: Performed By: #### C BC, ADIFF, BMP, GFR, ANEU ####[place] [address] BMPon 05-29-2025 BUN/Creatinine Ratio 6.3 ratio Low 10.0-22.0 [facility] Comment on above: Performed By: #### C BC, ADIFF, BMP, GFR, ANEU ####[place] [address] Calcium [Mass/Vol] 9.4 mg/dL Normal 8.7-10.4 [facility] Comment on above: Performed By: #### C BC, ADIFF, BMP, GFR, ANEU ####[place] [address] Chloride [Moles/Vol] 110 mmol/L Normal 98-110 [facility] Comment on above: Performed By: #### C BC, ADIFF, BMP, GFR, ANEU ####[place] [address] CO2 [Moles/Vol] 23 mmol/L Normal 22-32 [facility] Comment on above: Performed By: #### C BC, ADIFF, BMP, GFR, ANEU ####[place] [address] Creatinine [Mass/Vol] 0.79 mg/dL Normal 0.50-1.20 [facility] Comment on above: Result Comment: Test ing performed on Algisys analyzer using enzymatic creatinine methodology. Performed By: #### C BC, ADIFF, BMP, GFR, ANEU ####[place] [address] Electrolyte Balance 9.0 mEq/L Normal 4.0-15.0 [facility] Comment on above: Performed By: #### C BC, ADIFF, BMP, GFR, ANEU ####[place] [address] Glucose [Mass/Vol] 98 mg/dL Normal 70-110 [facility] Comment on above: Performed By: #### C BC, ADIFF, BMP, GFR, ANEU ####[place] [address] Potassium [Moles/Vol] 4.2 mmol/L Normal 3.5-5.0 [facility] Comment on above: Performed By: #### C BC, ADIFF, BMP, GFR, ANEU ####[place] [address] Sodium [Moles/Vol] 142 mmol/L Normal 136-145 [facility] Comment on above: Performed By: #### C BC, ADIFF, BMP, GFR, ANEU ####[place] [address] Urea nitrogen [Mass/Vol] 5.0 mg/dL Low 8.0-22.0 [facility] Comment on above: Performed By: #### C BC, ADIFF, BMP, GFR, ANEU ####[place] [address] CBCon 05-29-2025 Erythrocyte distribution width (RBC) [Ratio] 15.8 % High 11.5-15.5 [facility] Comment on above: Performed By: #### C BC, ADIFF, BMP, GFR, ANEU ####[place] [address] Hematocrit (Bld) [Volume fraction] 39.3 % Normal 34.0-46.0 [facility] Comment on above: Performed By: #### C BC, ADIFF, BMP, GFR, ANEU ####[place] [address] Hgb 13.2 G/dL Normal 12.0-16.0 [facility] Comment on above: Performed By: #### C BC, ADIFF, BMP, GFR, ANEU ####[place] [id number] MCH (RBC) [Entitic mass] 33.0 pg Normal 27.0-33.0 [facility] Comment on above: Performed By: #### C BC, ADIFF, BMP, GFR, ANEU ####[place] [address] MCHC 33.6 G/dL Normal 32.0-36.0 [facility] Comment on above: Performed By: #### C BC, ADIFF, BMP, GFR, ANEU ####[place] [address] MCV (RBC) [Entitic vol] 98.2 fL Normal 80.0-99.0 [facility] Comment on above: Performed By: #### C BC, ADIFF, BMP, GFR, ANEU ####[place] [address] Platelet 316 10 3/mcL Normal 150-450 [facility] Comment on above: Performed By: #### C BC, ADIFF, BMP, GFR, ANEU ####[place] [address] Platelet mean volume (Bld) [Entitic vol] 7.8 fL Normal 6.6-10.5 [facility] Comment on above: Performed By: #### C BC, ADIFF, BMP, GFR, ANEU ####[place] [address] RBC 4.00 10 6/mcL Low 4.10-5.30 [facility] Comment on above: Performed By: #### C BC, ADIFF, BMP, GFR, ANEU ####[place] [address] WBC 8.3 10 3/mcL Normal 4.5-10.8 [facility] Comment on above: Performed By: #### C BC, ADIFF, BMP, GFR, ANEU ####[place] [address] CURon 05-29-2025 CUR Normal [facility] LABORATORYOrdered By: SYSTEM SYSTEM on 05-29-2025 Basophils (Bld) [#/Vol] 0.1 103/mcL Normal 0.0 - 0.3 10^3/mcL Workflow SS Basophils/100 WBC (Bld) 1.0 % Normal 0.0 - 2.5 % Workflow SS Calcium [Mass/Vol] 9.4 mg/dL Normal 8.7 - 10. 4 mg/dL ADM SS Chloride [Moles/Vol] 110 mmol/L Normal 98 - 11 0 mEq/L ADM SS CO2 [Moles/Vol] 23 mmol/L Normal 22 - 32 mEq/L ADM SS Creatinine [Mass/Vol] 0.79 mg/dL Normal 0.50 - 1.20 mg/dL ADM SS Comment on above: Interpretive Data: T esting performed on Algisys analyzer using enzymatic creatinine methodology. Electrolyte Balance 9.0 mEq/L Normal 4.0 - 15 .0 mEq/L ADM SS Eosinophils (Bld) [#/Vol] 0.2 103/mcL Normal 0.0 - 0.7 10^3/mcL Workflow SS Eosinophils/100 WBC (Bld) 2.4 % Normal 0.0 - 6.0 % Workflow SS Erythrocyte distribution width (RBC) [Ratio] 15.8 % High 11.5 - 15.5 % Workflow SS Estimated Glomerular Filtration Rate 99 ml/min/1.73sqm Invalid Interpretation Code Chemistry S Comment [...] to calculate the eGFR results. Glucose [Mass/Vol] 98 mg/dL Normal 70 - 110 mg/dL ADM SS Hematocrit (Bld) [Volume fraction] 39.3 % Normal 34.0 - 46.0 % Workflow SS Hemoglobin (Bld) [Mass/Vol] 13.2 G/dL Normal 12.0 - 16.0 G/dL AH Workflow SS Lymphocytes (Bld) [#/Vol] 1.7 103/mcL Normal 0.9 - 4.3 10^3/mcL AH Workflow SS Lymphocytes/100 WBC (Bld) 20.8 % Normal 20.0 - 40.0 % AH Workflow SS MCH (RBC) [Entitic mass] 33.0 pg Normal 27.0 - 33.0 pg AH Workflow SS MCHC 33.6 G/dL Normal 32.0 - 36.0 G/dL AH Workflow SS MCV (RBC) [Entitic vol] 98.2 fL Normal 80.0 - 99.0 fL AH Workflow SS Monocytes (Bld) [#/Vol] 0.6 103/mcL Normal 0.1 - 1.4 10^3/mcL AH Workflow SS Monocytes/100 WBC (Bld) 7.7 % Normal 2.0 - 13.0 % AH Workflow SS Neutrophils (Bld) [#/Vol] 5.7 103/mcL Normal 2.3 - 8.1 10^3/mcL AH Workflow SS Neutrophils/100 WBC (Bld) 68.1 % Normal 50.0 - 75.0 % AH Workflow SS Platelet mean volume (Bld) [Entitic vol] 7.8 fL Normal 6.6 - 10.5 fL AH Workflow SS Platelets (Bld) [#/Vol] 316 103/mcL Normal 150 - 450 10^3/mcL AH Workflow SS Potassium [Moles/Vol] 4.2 mmol/L Normal 3.5 - 5.0 mEq/L AH ADM SS RBC (Bld) [#/Vol] 4.00 106/mcL Low 4.10 - 5.3 0 10^6/mcL AH Workflow SS Sodium [Moles/Vol] 142 mmol/L Normal 136 - 145 mEq/L AH ADM SS Urea nitrogen [Mass/Vol] 5.0 mg/dL Low 8.0 - 22.0 mg/dL AH ADM SS Urea nitrogen/Creatinine [Mass ratio] 6.3 ratio Low 10.0 - 22.0 ratio AH ADM SS WBC (Bld) [#/Vol] 8.3 103/mcL Normal 4.5 - 10.8 10^3/mcL AH Workflow SS URINE CULTURE [CCL]on 2024 Bacteria identified Cx Nom (U) Normal [facility] [place] Comment on above: Performed By: #### 2 [id number] ####[facility] [place],[address] [facility] [address] .Auto Diffon 05-28-2025 Basophil, Absolute 0.1 10 3/mcL Normal 0.0-0.3 [facility] Comment on above: Performed By: #### G FR, ANEU, CBC, ADIFF, CMP ####[address] [address] Basophils/100 WBC (Bld) 1.5 % Normal 0.0-2.5 [facility] Comment on above: Performed By: #### G FR, ANEU, CBC, ADIFF, CMP ####[address] [address] Eosinophil, Absolute 0.2 10 3/mcL Normal 0.0-0.7 [facility] Comment on above: Performed By: #### G FR, ANEU, CBC, ADIFF, CMP ####[address] [address] Eosinophils/100 WBC (Bld) 2.6 % Normal 0.0-6.0 [facility] Comment on above: Performed By: #### G FR, ANEU, CBC, ADIFF, CMP ####[address] [address] Lymphocyte, Absolute 2.2 10 3/mcL Normal 0.9-4.3 [facility] Comment on above: Performed By: #### G FR, ANEU, CBC, ADIFF, CMP ####[address] [address] Lymphocytes/100 WBC (Bld) 30.4 % Normal 20.0-40.0 [facility] Comment on above: Performed By: #### G FR, ANEU, CBC, ADIFF, CMP ####[address] [address] Monocyte, Absolute 0.6 10 3/mcL Normal 0.1-1.4 [facility] Comment on above: Performed By: #### G FR, ANEU, CBC, ADIFF, CMP ####[address] [address] Monocytes/100 WBC (Bld) 8.1 % Normal 2.0-13.0 [facility] Comment on above: Performed By: #### G FR, ANEU, CBC, ADIFF, CMP ####[place] [address] Neutrophils/100 WBC (Bld) 57.4 % Normal 50.0-75.0 [facility] Comment on above: Performed By: #### G FR, ANEU, CBC, ADIFF, CMP ####[place] [address] .GFRon 05-28-2025 Estimated Glomerular Filtration Rate 88 ml/min/1.73sqm Normal [facility] Comment on above: Result Comment: Stag es of Chronic Kidney Disease (CKD)Stage Description eGFR(ml/min/1.73 sq.m.)CKD 1 Normal kidney function or >=90 normal kindney function with possible kidney damage (ex. Proteinuria)CKD 2 Kidney damage with mild loss 60-89 of kidney functionCKD 3a Mild to moderate loss of kidney 45-59 functionCKD 3b Moderate to severe loss of 30-44 of kindey function CKD 4 Severe loss of kidney function 15-29CKD 5 Kidney failure <15Note: (go live 2024) the eGFR calculation was updated to the KD-EPI creatinine equation without a race factor to calculate theeGFR results. Performed By: #### G FR, ANEU, CBC, ADIFF, CMP ####[place] [address] .NEUABSon 05-28-2025 Neutrophil, Absolute 4.2 10 3/mcL Normal 2.3-8.1 [facility] Comment on above: Performed By: #### G FR, ANEU, CBC, ADIFF, CMP ####[place] [address] CBCon 05-28-2025 Erythrocyte distribution width (RBC) [Ratio] 15.2 % Normal 11.5-15.5 [facility] Comment on above: Performed By: #### G FR, ANEU, CBC, ADIFF, CMP ####[place] [address] Hematocrit (Bld) [Volume fraction] 34.4 % Normal 34.0-46.0 [facility] Comment on above: Performed By: #### G FR, ANEU, CBC, ADIFF, CMP ####[place] [address] Hgb 11.7 G/dL Low 12.0-16.0 [facility] Comment on above: Performed By: #### G FR, ANEU, CBC, ADIFF, CMP ####[place] [address] MCH (RBC) [Entitic mass] 33.2 pg High 27.0-33.0 [facility] Comment on above: Performed By: #### G FR, ANEU, CBC, ADIFF, CMP ####[place] [address] MCHC 34.0 G/dL Normal 32.0-36.0 [facility] Comment on above: Performed By: #### G FR, ANEU, CBC, ADIFF, CMP ####[place] [address] MCV (RBC) [Entitic vol] 97.8 fL Normal 80.0-99.0 [facility] Comment on above: Performed By: #### G FR, ANEU, CBC, ADIFF, CMP ####[place] [address] Platelet 313 10 3/mcL Normal 150-450 [facility] Comment on above: Performed By: #### G FR, ANEU, CBC, ADIFF, CMP ####[place] [address] Platelet mean volume (Bld) [Entitic vol] 7.0 fL Normal 6.6-10.5 [facility] Comment on above: Performed By: #### G FR, ANEU, CBC, ADIFF, CMP ####[place] [address] RBC 3.52 10 6/mcL Low 4.10-5.30 [facility] Comment on above: Performed By: #### G FR, ANEU, CBC, ADIFF, CMP ####[place] [address] WBC 7.4 10 3/mcL Normal 4.5-10.8 [facility] Comment on above: Performed By: #### G FR, ANEU, CBC, ADIFF, CMP ####[place] [address] CMPon 05-28-2025 Albumin Level 3.1 G/dL Low 3.2-4.8 [facility] Comment on above: Performed By: #### G FR, ANEU, CBC, ADIFF, CMP ####[place] [address] Albumin/Globulin [Mass ratio] 1.3 {ratio} Normal 0.9-1.6 [facility] Comment on above: Performed By: #### Deondre FR, ANEU, CBC, ADIFF, CMP ####[place] [address] ALP [Catalytic activity/Vol] 59 U/L Normal 38-126 [facility] Comment on above: Performed By: #### Deondre FR, ANEU, CBC, ADIFF, CMP ####[place] [address] ALT [Catalytic activity/Vol] 10 U/L Normal 10-49 [facility] Comment on above: Performed By: #### G FR, ANEU, CBC, ADIFF, CMP ####[place] [address] AST [Catalytic activity/Vol] 15 U/L Normal 8-34 [facility] Comment on above: Performed By: #### G FR, ANEU, CBC, ADIFF, CMP ####[place] [address] Bili Total 0.30 mg/dL Normal 0.20-1.20 [facility] Comment on above: Result Comment: Use of this assay is not recommended for patients undergoing treatment with eltrombopag due to the potential for falsely elevated results. Performed By: #### G FR, ANEU, CBC, ADIFF, CMP ####[place] [address] BUN/Creatinine Ratio 12.6 ratio Normal 10.0-22.0 [facility] Comment on above: Performed By: #### G FR, ANEU, CBC, ADIFF, CMP ####[address] [address] Calcium [Mass/Vol] 8.5 mg/dL Low 8.7-10.4 [facility] Comment on above: Performed By: #### G FR, ANEU, CBC, ADIFF, CMP ####[place] [id number] Chloride [Moles/Vol] 111 mmol/L High 98-110 [facility] Comment on above: Performed By: #### G FR, ANEU, CBC, ADIFF, CMP ####[address] [address] CO2 [Moles/Vol] 24 mmol/L Normal 22-32 [facility] Comment on above: Performed By: #### G FR, ANEU, CBC, ADIFF, CMP ####[place] [address] Creatinine [Mass/Vol] 0.87 mg/dL Normal 0.50-1.20 [facility] Comment on above: Result Comment: Test ing performed on Alg[employer] analyzer using enzymatic creatinine methodology. Performed By: #### G FR, ANEU, CBC, ADIFF, CMP ####[place] [address] Electrolyte Balance 8.0 mEq/L Normal 4.0-15.0 [facility]IN Comment on above: Performed By: #### G FR, ANEU, CBC, ADIFF, CMP ####[address] [address] Globulin 2.4 G/dL Low 2.5-4.2 [facility] Comment on above: Performed By: #### G FR, ANEU, CBC, ADIFF, CMP ####[place] [id number] Glucose [Mass/Vol] 91 mg/dL Normal 70-110 [facility] Comment on above: Performed By: #### G FR, ANEU, CBC, ADIFF, CMP ####[place] [id number] Potassium [Moles/Vol] 3.6 mmol/L Normal 3.5-5.0 [facility] Comment on above: Performed By: #### G FR, ANEU, CBC, ADIFF, CMP ####[place] [id number] [address] [place] [id number] Sodium [Moles/Vol] 143 mmol/L Normal 136-145 [facility] Comment on above: Performed By: #### G FR, ANEU, CBC, ADIFF, CMP ####[address] [address] Total Protein 5.5 G/dL Low 5.7-8.2 [facility] Comment on above: Performed By: #### G FR, ANEU, CBC, ADIFF, CMP ####[address] [address] Urea nitrogen [Mass/Vol] 11.0 mg/dL Normal 8.0-22.0 [facility] Comment on above: Performed By: #### G FR, ANEU, CBC, ADIFF, CMP ####[place] [address] LABORATORYOrdered By: SYSTEM SYSTEM on 05-28-2025 Albumin BCP dye [Mass/Vol] 3.1 G/dL Low 3.2 - 4.8 G/dL ADM SS Albumin/Globulin [Mass ratio] 1.3 {ratio} Normal 0.9 - 1.6 ratio ADM SS ALP [Catalytic activity/Vol] 59 U/L Normal 38 - 126 U/L ADM SS ALT No additional P-5'-P [Catalytic activity/Vol] 10 U/L Normal 10 - 49 U/L ADM SS AST [Catalytic activity/Vol] 15 U/L Normal 8 - 34 U/L ADM SS Basophils (Bld) [#/Vol] 0.1 103/mcL Normal 0.0 - 0.3 10^3/mcL Workflow SS Basophils/100 WBC (Bld) 1.5 % Normal 0.0 - 2.5 % Workflow SS Bilirubin [Mass/Vol] 0.30 mg/dL Normal 0.20 - 1.20 mg/dL ADM SS Comment on above: Interpretive Data: U se of this assay is not recommended for patients undergoing treatment with eltrombopag due to the potential for falsely elevated results. Calcium [Mass/Vol] 8.5 mg/dL Low 8.7 - 10. 4 mg/dL ADM SS Chloride [Moles/Vol] 111 mmol/L High 98 - 11 0 mEq/L ADM SS CO2 [Moles/Vol] 24 mmol/L Normal 22 - 32 mEq/L ADM SS Creatinine [Mass/Vol] 0.87 mg/dL Normal 0.50 - 1.20 mg/dL ADM SS Comment on above: Interpretive Data: T esting performed on Algisys analyzer using enzymatic creatinine methodology. Electrolyte Balance 8.0 mEq/L Normal 4.0 - 15 .0 mEq/L ADM SS Eosinophils (Bld) [#/Vol] 0.2 103/mcL Normal 0.0 - 0.7 10^3/mcL Workflow SS Eosinophils/100 WBC (Bld) 2.6 % Normal 0.0 - 6.0 % Workflow SS Erythrocyte distribution width (RBC) [Ratio] 15.2 % Normal 11.5 - 15.5 % Workflow [...] factor to calculate the eGFR results. Globulin 2.4 G/dL Low 2.5 - 4.2 G/dL ADM SS Glucose [Mass/Vol] 91 mg/dL Normal 70 - 110 mg/dL ADM SS Hematocrit (Bld) [Volume fraction] 34.4 % Normal 34.0 - 46.0 % Workflow SS Hemoglobin (Bld) [Mass/Vol] 11.7 G/dL Low 12.0 - 16.0 G/dL Workflow SS Lymphocytes (Bld) [#/Vol] 2.2 103/mcL Normal 0.9 - 4.3 10^3/mcL Workflow SS Lymphocytes/100 WBC (Bld) 30.4 % Normal 20.0 - 40.0 % Workflow SS Magnesium [Mass/Vol] 1.9 mg/dL Normal 1.6 - 2 .4 mg/dL ADM SS MCH (RBC) [Entitic mass] 33.2 pg High 27.0 - 33.0 pg Workflow SS MCHC 34.0 G/dL Normal 32.0 - 36.0 G/dL Workflow SS MCV (RBC) [Entitic vol] 97.8 fL Normal 80.0 - 99.0 fL Workflow SS Monocytes (Bld) [#/Vol] 0.6 103/mcL Normal 0.1 - 1.4 10^3/mcL Workflow SS Monocytes/100 WBC (Bld) 8.1 % Normal 2.0 - 13.0 % Workflow SS Neutrophils (Bld) [#/Vol] 4.2 103/mcL Normal 2.3 - 8.1 10^3/mcL Workflow SS Neutrophils/100 WBC (Bld) 57.4 % Normal 50.0 - 75.0 % Workflow SS Platelet mean volume (Bld) [Entitic vol] 7.0 fL Normal 6.6 - 10.5 fL Workflow SS Platelets (Bld) [#/Vol] 313 103/mcL Normal 150 - 450 10^3/mcL Workflow SS Potassium [Moles/Vol] 3.6 mmol/L Normal 3.5 - 5.0 mEq/L ADM SS Protein [Mass/Vol] 5.5 G/dL Low 5.7 - 8.2 G/dL ADM SS PT Coag (PPP) [Time] 12.8 s Normal 9.0 - 1 4.4 seconds [facility] Comment on above: Interpretive Data: E ffective 05/17/08, Protime results may be affected by some antibiotics (i.e. Ciprofloxacin, Azithromycin, Bactrim) which may potentiate the action of oral anticoagulants, with further increases in Protime/INR. PT International Ratio 1.1 ratio Invalid Interpretation Code [facility] Comment on above: Interpretive Data: Haja ambrosio [employer] (CHEST, 1991, 102:[id number]) recommended therapeutic range for oral anticoagulant therapy is: LOW RISK: Prophylaxis of venous thrombosis INR: 2.0-3.0 Treatment of pulmonary embolism 2.0-3.0 Prevention of systemic embolism 2.0-3.0 HIGH RISK: Mechanical prosthetic valves 2.5-3.5 RBC (Bld) [#/Vol] 3.52 106/mcL Low 4.10 - 5.3 0 10^6/mcL AH Workflow SS Sodium [Moles/Vol] 143 mmol/L Normal 136 - 145 mEq/L AH ADM SS Urea nitrogen [Mass/Vol] 11.0 mg/dL Normal 8.0 - 22.0 mg/dL AH ADM SS Urea nitrogen/Creatinine [Mass ratio] 12.6 ratio Normal 10.0 - 22.0 ratio AH ADM SS WBC (Bld) [#/Vol] 7.4 103/mcL Normal 4.5 - 10.8 10^3/mcL AH Workflow SS MGon 05-28-2025 Magnesium [Mass/Vol] 1.9 mg/dL Normal 1.6-2.4 [facility] Comment on above: Performed By: #### P RO, MG ####[address] [address] PROon 05-28-2025 INR Coag (PPP) [Relative time] 1.1 {INR} Normal [facility] Comment on above: Result Comment: [employer] (CHEST, 1991, 102:[id number])recommended therapeutic range for oral anticoagulant therapy is:LOW RISK: Prophylaxis of venous thrombosis INR: 2.0-3.0 Treatment of pulmonary embolism 2.0-3.0 Prevention of systemic embolism 2.0-3.0HIGH RISK: Mechanical prosthetic valves 2.5-3.5 Performed By: #### P RO, MG ####[address] [address] PT Coag (PPP) [Time] 12.8 s Normal 9.0-14.4 [facility] Comment on above: Result Comment: Effe ctive 05/17/08, Protime results may be affected by some antibiotics (i.e. Ciprofloxacin, Azithromycin, Bactrim) which may potentiate the action of oral anticoagulants, with further increases in Protime/INR. Performed By: #### P RO, MG ####[address] [address] .Auto Diffon 05-27-2025 Basophil, Absolute 0.1 10 3/mcL Normal 0.0-0.3 [facility] Comment on above: Performed By: #### L AC, ADIFF, GFR, CBC, ANEU, BMP, MDW ####[place] [address] Basophils/100 WBC (Bld) 0.8 % Normal 0.0-2.5 [facility] Comment on above: Performed By: #### L AC, ADIFF, GFR, CBC, ANEU, BMP, MDW ####[place] [address] Eosinophil, Absolute 0.1 10 3/mcL Normal 0.0-0.7 [facility] Comment on above: Performed By: #### L AC, ADIFF, GFR, CBC, ANEU, BMP, MDW ####[place] [address] Eosinophils/100 WBC (Bld) 1.4 % Normal 0.0-6.0 [facility] Comment on above: Performed By: #### L AC, ADIFF, GFR, CBC, ANEU, BMP, MDW ####[place] [address] Lymphocyte, Absolute 2.4 10 3/mcL Normal 0.9-4.3 [facility] Comment on above: Performed By: #### L AC, ADIFF, GFR, CBC, ANEU, BMP, MDW ####[place] [address] Lymphocytes/100 WBC (Bld) 22.7 % Normal 20.0-40.0 [facility] Comment on above: Performed By: #### L AC, ADIFF, GFR, CBC, ANEU, BMP, MDW ####[place] [address] Monocyte, Absolute 0.7 10 3/mcL Normal 0.1-1.4 [facility] Comment on above: Performed By: #### L AC, ADIFF, GFR, CBC, ANEU, BMP, MDW ####[address] [address] Monocytes/100 WBC (Bld) 6.5 % Normal 2.0-13.0 [facility] Comment on above: Performed By: #### L AC, ADIFF, GFR, CBC, ANEU, BMP, MDW ####[address] [address] Neutrophils/100 WBC (Bld) 68.6 % Normal 50.0-75.0 [facility] Comment on above: Performed By: #### L AC, ADIFF, GFR, CBC, ANEU, BMP, MDW ####[place] [address] .GFRon 05-27-2025 Estimated Glomerular Filtration Rate 81 ml/min/1.73sqm Normal [facility] Comment on above: Result Comment: Stag es of Chronic Kidney Disease (CKD)Stage Description eGFR(ml/min/1.73 sq.m.)CKD 1 Normal kidney function or >=90 normal kindney function with possible kidney damage (ex. Proteinuria)CKD 2 Kidney damage with mild loss 60-89 of kidney functionCKD 3a Mild to moderate loss of kidney 45-59 functionCKD 3b Moderate to severe loss of 30-44 of kindey function CKD 4 Severe loss of kidney function 15-29CKD 5 Kidney failure <15Note: (go live 2024) the eGFR calculation was updated to the KD-EPI creatinine equation without a race factor to calculate theeGFR results. Performed By: #### L AC, ADIFF, GFR, CBC, ANEU, BMP, YOUNG ####[place] [address] .MDWon 05-27-2025 Monocyte Distribution Width 20.07 High 0.00-20.00 [facility] Comment on above: Result Comment: For adults in ED, MDW>20.0 may be associated with a higher risk of sepsis during the first 12hrs of hospital admission Performed By: #### L AC, ADIFF, GFR, CBC, ANEU, BMP, MDW ####[place] [address] .NEUABSon 05-27-2025 Neutrophil, Absolute 7.3 10 3/mcL Normal 2.3-8.1 [facility] Comment on above: Performed By: #### L AC, ADIFF, GFR, CBC, ANEU, ZENOBIA, YOUNG ####[address] [address] BMPon 05-27-2025 BUN/Creatinine Ratio 12.8 ratio Normal 10.0-22.0 [facility] Comment on above: Performed By: #### L AC, ADIFF, GFR, CBC, ANEU, BMP, YOUNG ####[place] [address] Calcium [Mass/Vol] 9.1 mg/dL Normal 8.7-10.4 [facility] Comment on above: Performed By: #### L AC, ADIFF, GFR, CBC, ANEU, YOUNG FREGOSO ####[place] [address] Chloride [Moles/Vol] 111 mmol/L High 98-110 [facility] Comment on above: Performed By: #### L AC, ADIFF, GFR, CBC, ANEU, YOUNG FREGOSO ####[place] [id number] CO2 [Moles/Vol] 24 mmol/L Normal 22-32 [facility] Comment on above: Performed By: #### L AC, ADIFF, GFR, CBC, GURMEET, ZENOBIA, YOUNG ####[place] [address] Creatinine [Mass/Vol] 0.94 mg/dL Normal 0.50-1.20 [facility] Comment on above: Result Comment: Test ing performed on Algisys analyzer using enzymatic creatinine methodology. Performed By: #### L AC, ADIFF, GFR, CBC, ANEU, BMP, YOUNG ####[place] [address] Electrolyte Balance 6.0 mEq/L Normal 4.0-15.0 [facility] Comment on above: Performed By: #### L AC, ADIFF, GFR, CBC, ANEU, ZENOBIA, YOUNG ####[address] [address] Glucose [Mass/Vol] 95 mg/dL Normal 70-110 [facility] Comment on above: Performed By: #### L AC, ADIFF, GFR, CBC, ANEUZENOBIA MDW ####[place] [address] Potassium [Moles/Vol] 4.3 mmol/L Normal 3.5-5.0 [facility] Comment on above: Performed By: #### L AC, ADIFF, GFR, CBC, ANEU, YOUNG FREGOSO ####[place] [address] Sodium [Moles/Vol] 141 mmol/L Normal 136-145 [facility] Comment on above: Performed By: #### L AC, ADIFF, GFR, CBC, ANEU, YOUNG FREGOSO ####[place] [address] Urea nitrogen [Mass/Vol] 12.0 mg/dL Normal 8.0-22.0 [facility] Comment on above: Performed By: #### L AC, ADIFF, GFR, CBC, GURMEET, YOUNG FREGOSO ####[place] [address] CBCon 05-27-2025 Erythrocyte distribution width (RBC) [Ratio] 15.4 % Normal 11.5-15.5 [facility] Comment on above: Performed By: #### L AC, ADIFF, GFR, CBC, GURMEET, YOUNG FREGOSO ####[place] [address] Hematocrit (Bld) [Volume fraction] 40.0 % Normal 34.0-46.0 [facility] Comment on above: Performed By: #### L AC, ADIFF, GFR, CBC, ZENOBIA LEVI MDW ####[place] [address] Hgb 13.4 G/dL Normal 12.0-16.0 [facility] Comment on above: Performed By: #### L AC, ADIFF, GFR, CBC, ANEU, YOUNG FREGOSO ####[place] [id number] MCH (RBC) [Entitic mass] 32.6 pg Normal 27.0-33.0 [facility] Comment on above: Performed By: #### L AC, ADIFF, GFR, CBC, ANEU, BMP, MDW ####[place] [address] MCHC 33.4 G/dL Normal 32.0-36.0 [facility] Comment on above: Performed By: #### L AC, ADIFF, GFR, CBC, ANEU, BMP, MDW ####[place] [address] MCV (RBC) [Entitic vol] 97.3 fL Normal 80.0-99.0 [facility] Comment on above: Performed By: #### L AC, ADIFF, GFR, CBC, ANEU, BMP, MDW ####[place] [address] Platelet 357 10 3/mcL Normal 150-450 [facility] Comment on above: Performed By: #### L AC, ADIFF, GFR, CBC, ANEU, BMP, MDW ####[place] [address] Platelet mean volume (Bld) [Entitic vol] 7.2 fL Normal 6.6-10.5 [facility] Comment on above: Performed By: #### L AC, ADIFF, GFR, CBC, ANEU, BMP, MDW ####[place] [address] RBC 4.11 10 6/mcL Normal 4.10-5.30 [facility] Comment on above: Performed By: #### L AC, ADIFF, GFR, CBC, ANEU, BMP, MDW ####[place] [address] WBC 10.6 10 3/mcL Normal 4.5-10.8 [facility] Comment on above: Performed By: #### L AC, ADIFF, GFR, CBC, ANEU, BMP, MDW ####[place] [address] CBLon 05-27-2025 CBL Normal [facility] ED MED ADMINISTRATION DETAIL on 05-27-2025 ED MED ADMINISTRATION DETAIL Normal [facility] ED NURSES CLINICAL NOTEon ED NURSES CLINICAL NOTE Normal [facility] ED ORDER SHEET (CPOE ONLY)on 05-27-2025 ED ORDER SHEET (CPOE ONLY) Normal [facility] ED PHYSICIAN CLINICAL REPORT on 05-27-2025 ED PHYSICIAN CLINICAL REPORT Normal [facility] ED SUPER BILLon 05-27-2025 ED SUPER BILL Normal [facility] ED VISIT SUMMARYon ED VISIT SUMMARY Normal [facility] ED VITALS FLOW SHEETon 05-27 ED VITALS FLOW SHEET Normal [facility] LABORATORYOrdered By: Bassam Dixon on 05-27-2025 Appearance (U) Cloudy *ABN* (05/27/25 6:16 PM) Invalid Interpretation Code Clear AH Auto Urine SS Bacteria LM.HPF (Urine sed) [#/Area] 1 /[HPF] Invalid Interpretation Code Negative AH Auto Urine SS Bilirubin Ql (U) Negative (05/27/25 6:16 PM) Normal Neg-Trace Auto Urine SS Color (U) Yellow (05/27/25 6:16 PM) Normal AH Auto Urine SS Glucose Test strip (U) [Mass/Vol] Negative Normal Negative AH Auto Urine SS Hemoglobin Auto test strip (U) [Mass/Vol] Moderate *ABN* (05/27/25 6:16 PM) Invalid Interpretation Code Neg-Trace AH Auto Urine SS Ketones Ql (U) Negative Normal Neg-Trace AH Auto Urine SS RBC.non-dysmorphic LM Ql (Urine sed) 0-2 /HPF Invalid Interpretation Code AH Auto Urine SS UA Leuk Est Large *ABN* (05/27/25 6:16 PM) Invalid Interpretation Code Negative AH Auto Urine SS UA Nitrite Positive *ABN* (05/27/25 6:16 PM) Invalid Interpretation Code Negative AH Auto Urine SS UA pH >=8.5 *ABN* (05/27/25 6:16 PM) Invalid Interpretation Code 5.0 - 8.0 AH Auto Urine SS UA Protein 100 mg/dL Invalid Interpretation Code Negative AH Auto Urine SS UA RBC 3-5 /HPF Invalid Interpretation Code 0-2 AH Auto Urine SS UA Spec Grav 1.010 (05/27/25 6:16 PM) Normal 1.006-1.029 AH Auto Urine SS UA Specimen Type Hilario Catheter (05/27/25 6:16 PM) Normal AH Auto Urine SS UA Squam Epithelial 0-2 /HPF Normal 0-20 AH Au to Urine SS UA Trip Rai Crystals 3+ /HPF Normal AH A uto Urine SS UA Urobilinogen 0.2 E.U./dL Normal 0.2-1.0 AH Auto Urine SS WBC LM.HPF (Urine sed) [#/Area] 10-20 /HPF Invalid Interpretation Code 0-5 AH Auto Urine SS LABORATORYOrdered By: SYSTEM SYSTEM on 05-27-2025 Lactate [Moles/Vol] 0.7 mmol/L Normal 0.5 - 2. 2 mmol/L AH ADM SS Monocyte distribution width Auto (Bld) [Entitic vol] 20.07 1 High 0.00 - 20.00 AH Workflow SS Comment on above: Result Comment: For adults in ED, MDW>20.0 may be associated with a higher risk of sepsis during the first 12hrs of hospital admission LABORATORYOrdered By: Tricia Wilkerson on 05-27-2025 Appearance (U) Cloudy *ABN* (05/27/25 5:05 PM) Invalid Interpretation Code Clear AH Auto Urine SS Bilirubin Ql (U) Negative (05/27/25 5:05 PM) Normal Neg-Trace AH Auto Urine SS Color (U) Yellow (05/27/25 5:05 PM) Normal AH Auto Urine SS Glucose Test strip (U) [Mass/Vol] Negative Normal Negative AH Auto Urine SS Hemoglobin Auto test strip (U) [Mass/Vol] Negative (05/27/25 5:05 PM) Normal Neg-Trace AH Auto Urine SS Ketones Ql (U) Negative Normal Neg-Trace AH Auto Urine SS UA Leuk Est Trace *NA* (05/27/25 5:05 PM) Invalid Interpretation Code Negative AH Auto Urine SS UA Nitrite Negative (05/27/25 5:05 PM) Normal Negative AH Auto Urine SS UA pH 8.5 *ABN* (05/27/25 5:05 PM) Invalid Interpretation Code 5.0 - 8.0 AH Auto Urine SS UA Protein Trace mg/dL Normal Negative AH Auto Urine SS UA RBC Rare /HPF Normal 0-2 AH Auto Urine SS UA Spec Grav 1.020 (05/27/25 5:05 PM) Normal 1.006-1.029 AH Auto Urine SS UA Specimen Type Clean Catch (05/27/25 5:05 PM) Normal AH Auto Urine SS UA Squam Epithelial 0-2 /HPF Normal 0-20 AH Au to Urine SS UA Urobilinogen 1.0 E.U./dL Normal 0.2-1.0 AH Auto Urine SS WBC LM.HPF (Urine sed) [#/Area] Rare /HPF Normal 0-5 Auto Urine SS LABORATORYOrdered By: Antonietta Bustamante on 05-27-2025 Beta HCG ( test) Ql (U) Negative (05/27/25 5:04 PM) [facility] Work Phone: LACon 05-27-2025 Lactic Acid Lvl 0.7 mmol/L Normal 0.5-2.2 [facility] Comment on above: Performed By: #### L AC, ADIFF, GFR, CBC, ANEU, BMP, MDW ####[address] [address] No Panel Informationon 05-27 Microscopic examination of blood, culture Culture has been received in lab and is no growth to date. Routine cultures are held for 5 days. [facility] Work Phone: Microscopic examination of blood, culture Culture has been received in lab and is no growth to date. Routine cultures are held for 5 days. [facility] Work Phone: Culture Urine 10,000 - 50,000 cfu/ ml Mixed growth consistent with normal urogenital blanco. [facility] Work Phone: UAon 05-27-2025 Color (U) Yellow Normal [facility] Comment on above: Performed By: #### U A, UAMIC ####[address] [address] Glucose (U) [Mass/Vol] Negative Normal Negative [facility] Comment on above: Performed By: #### U A, UAMIC ####[address] [address] Ketones Ql (U) Negative Normal Neg-Trace [facility] Comment on above: Performed By: #### U A, UAMIC ####[place] [address] UA Appear Cloudy Abnormal Clear [facility] Comment on above: Performed By: #### U A, UAMIC ####[place] [address] UA Blood Moderate Abnormal Neg-Trace [facility] Comment on above: Performed By: #### U A, UAMIC ####[place] [address] UA Leuk Est Large Abnormal Negative [facility] Comment on above: Performed By: #### U A, UAMIC ####[place] [address] UA Nitrite Positive Abnormal Negative [facility] Comment on above: Performed By: #### U A, UAMIC ####[place] [address] UA pH >=8.5 Abnormal 5.0 - 8.0 [facility] Comment on above: Performed By: #### U A, UAMIC ####[place] [address] UA Protein 100 mg/dL Abnormal Negative [facility] Comment on above: Performed By: #### U A, UAMIC ####[place] [address] UA Spec Grav 1.010 Normal 1.006-1.029 [facility] Comment on above: Performed By: #### U A, UAMIC ####[place] [address] UA Specimen Type Hilario Catheter Normal [facility] Comment on above: Performed By: #### U A, UAMIC ####[place] [address] UA Urobilinogen 0.2 E.U./dL Normal 0.2-1.0 [facility] Comment on above: Performed By: #### U A, UAMIC ####[place] [address] Urobilinogen (U) [Mass/Vol] Negative Normal Neg-Trace [facility] Comment on above: Performed By: #### U A, UAMIC ####[place] [address] Color (U) Yellow Normal [facility] Comment on above: Performed By: #### U A, UAMIC ####[place] [address] Glucose (U) [Mass/Vol] Negative Normal Negative [facility] Comment on above: Performed By: #### U A, UAMIC ####[place] [address] Ketones Ql (U) Negative Normal Neg-Trace [facility] Comment on above: Performed By: #### U A, UAMIC ####[place] [address] UA Appear Cloudy Abnormal Clear [facility] Comment on above: Performed By: #### U A, UAMIC ####[place] [address] UA Blood Negative Normal Neg-Trace [facility] Comment on above: Performed By: #### U A, UAMIC ####[place] [address] UA Leuk Est Trace Normal Negative [facility] Comment on above: Performed By: #### U A, UAMIC ####[place] [address] UA Nitrite Negative Normal Negative [facility] Comment on above: Performed By: #### U A, UAMIC ####[place] [address] UA pH 8.5 Abnormal 5.0 - 8.0 [facility] Comment on above: Performed By: #### U A, UAMIC ####[place] [address] UA Protein Trace Normal Negative [facility] Comment on above: Performed By: #### U A, UAMIC ####[place] [address] UA Spec Grav 1.020 Normal 1.006-1.029 [facility] Comment on above: Performed By: #### U A, UAMIC ####[place] [address] UA Specimen Type Clean Catch Normal [facility] Comment on above: Performed By: #### U A, UAMIC ####[place] [address] UA Urobilinogen 1.0 E.U./dL Normal 0.2-1.0 [facility] Comment on above: Performed By: #### U A, UAMIC ####[place] [address] Urobilinogen (U) [Mass/Vol] Negative Normal Neg-Trace [facility] Comment on above: Performed By: #### U A, UAMIC ####[place] [address] UAMICon 05-27-2025 UA Bacteria 1+ /hpf Abnormal Negative [facility] Comment on above: Performed By: #### U A, UAMIC ####[place] [address] UA Crenated RBCs 0-2 Abnormal [facility] Comment on above: Performed By: #### U A, UAMIC ####[place] [address] UA RBC 3-5 Abnormal 0-2 [facility] Comment on above: Performed By: #### U A, UAMIC ####[place] [address] UA Squam Epithelial 0-2 Normal 0-20 [facility] Comment on above: Performed By: #### U A, UAMIC ####[place] [address] UA Trip Rai Crystals 3+ /hpf Normal [facility] Comment on above: Performed By: #### U A, UAMIC ####[place] [address] UA WBC 10-20 Abnormal 0-5 [facility] Comment on above: Performed By: #### U A, UAMIC ####[place] [address] UA RBC Rare Normal 0-2 [facility] Comment on above: Performed By: #### U A, UAMIC ####[facility] [place] [address] UA Squam Epithelial 0-2 Normal 0-20 [facility] Comment on above: Performed By: #### U A, UAMIC ####[facility] [place] [address] UA WBC Rare Normal 0-5 [facility] Comment on above: Performed By: #### U A, UAMIC ####[place] [address] CBC + DIFFon 05-26-2025 Baso # 0.04 x10EE3/UL Normal 0.00 - 0.10 [facility] Comment on above: Performed By: #### 2 [id number] ####[facility] [place],[address] [place] [address] Basophils/100 WBC (Bld) 0.4 % Normal 0.0 - 2.0 [facility] Comment on above: Performed By: #### 2 [address]6900 ####[facility] [place],[address] [place] [address] CBC + DIFF Normal [facility] Comment on above: Result Comment: CBC- COMPLETE BLOOD COUNT Performed By: #### 2 [id number] ####[facility] [place],[address] [place] [address] EO # 0.28 x10EE3/UL Normal 0.00 - 0.50 [facility] Comment on above: Performed By: #### 2 38889 ####[facility] [place],[address] [place] [address] Eosinophils/100 WBC (Bld) 3.1 % Normal 0.0 - 7.0 [facility] Comment on above: Performed By: #### 2 17369 ####[facility] [place],[address] [place] [address] Erythrocyte distribution width (RBC) [Ratio] 14.1 % Normal 12.0 - 15.6 [facility] Comment on above: Performed By: #### 2 11543 ####[facility] [place],[address] [place] [address] Hematocrit (Bld) [Volume fraction] 34.1 % Normal 34.0 - 46.0 [facility] Comment on above: Performed By: #### 2 98775 ####[facility] [place],[address] [place] [address] Hemoglobin (Bld) [Mass/Vol] 12.1 g/dL Normal 12.0 - 16.0 [facility] Comment on above: Performed By: #### 2 96052 ####[facility] [place],[address] [place] [address] Lymph # 2.66 x10EE3/UL Normal 0.80 - 2.80 [facility] [place] Comment on above: Performed By: #### [id number] ####[place] [address] Lymphocytes/100 WBC (Bld) 29.1 % Normal 20.0 - 45.0 [facility] [place] Comment on above: Performed By: #### [id number] ####[facility] [place],[address] [place] [address] MANUAL DIFF N/A Normal [facility] [place] Comment on above: Performed By: #### [id number] ####[facility] [facility] [place],[address] [place], [place] [id number] MCH (RBC) [Entitic mass] 34 pg High 27 - 33 [facility] [place] Comment on above: Performed By: #### 2 90129 ####[facility] [place],[address] [place], [place] [id number] MCHC 36 X10 3 Normal 32 - 36 [facility] [place] Comment on above: Performed By: #### 2 43105 ####[facility] [place],[address] [place], [place] [id number] MCV (RBC) [Entitic vol] 96 fL Normal 80 - 99 [facility] Comment on above: Performed By: #### 2 68787 ####[facility] [place],[address] [place] [address]14 Moca # 0.65 x10EE3/UL Normal 0.20 - 1.00 [facility] [place] Comment on above: Performed By: #### 2 50503 ####[facility] [place],[address] [place] [address] 35882 MONOS % 7.1 % Normal 0.0 - 10.0 [facility] [place] Comment on above: Performed By: #### 2 10829 ####[facility] [place],[address] [place] [address] 12002 Morphology Efra (Bld) [Interp] N/A Normal [facility] [place] Comment on above: Performed By: #### 2 04460 ####[facility] [place],[address] [place] [address] 83583 Neut # 5.51 x10EE3/UL Normal 1.50 - 7.10 [facility] [place] Comment on above: Performed By: #### 2 97077 ####[facility] [place],[address] [place] [address] 62612 Neutrophils/100 WBC (Bld) 60.3 % Normal 46.0 - 76.0 [facility] [place] Comment on above: Performed By: #### 2 71011 ####[facility] [place],[address] [place] [address] 74711 PLATELET 372 x10EE3/UL Normal 150 - 450 [facility] [place] Comment on above: Performed By: #### 2 99530 ####[facility] [place],[address] [place] [address] 79600 Platelet mean volume (Bld) [Entitic vol] 6.7 fL Normal 6.6 - 10.5 [facility] [place] Comment on above: Result Comment: AUTO MATED DIFFERENTIAL Performed By: #### 2 14283 ####[facility] [place],[address] [place] [address] 23053 RBC 3.55 x 10EE6/UL Low 4.10 - 5.30 [facility] [place] Comment on above: Performed By: #### 2 34578 ####[facility] [place],[address] [place] [address] 42579 WBC 9.1 x 10EE3/UL Normal 4.5 - 10.8 [facility] [place] Comment on above: Performed By: #### 2 36769 ####[facility] [place],[address] [place], [place] [id number] CMP with eGFRon 05-26-2025 AGE 34 years Normal [facility] [place] Comment on above: Performed By: #### 2 88683 ####[facility] [place],[address] [place], [place] [id number] Albumin [Mass/Vol] 3.7 g/dL Normal 3.4 - 5.0 [facility] [place] Comment on above: Performed By: #### 2 72727 ####[facility] [place],[address] [place] [address] Albumin/Globulin [Mass ratio] 1.3 {ratio} Normal 0.9 - 1.6 [facility] [place] Comment on above: Performed By: #### 2 30577 ####[facility] [place],[address] [place] [address] 47140 ALK PHOS 66 U/L Normal 46 - 116 [facility] [place] Comment on above: Performed By: #### 2 28597 ####[facility] [place],[address] [place], [place] [id number] ALT [Catalytic activity/Vol] 17 U/L Normal 16 - 63 [facility] [place] Comment on above: Performed By: #### 2 83975 ####[facility] [place],[address] [place] [address] 17565 Anion gap [Moles/Vol] 18 mmol/L Normal 10 - 20 [facility] Comment on above: Performed By: #### 2 47870 ####[facility] [place],[address] [place] [address] 19454 AST [Catalytic activity/Vol] 14 U/L Normal 13 - 39 [facility] [place] Comment on above: Performed By: #### 2 91797 ####[facility] [place],[address] [place] [address]24 B/C RATIO 11 ratio Normal 0 - 30 [facility] [place] Comment on above: Performed By: #### 2 46811 ####[facility] [place],[address] [place] [address]79 Bilirubin [Mass/Vol] 0.2 mg/dL Normal 0.2 - 1.0 [facility] [place] Comment on above: Performed By: #### 2 15307 ####[facility] [place],[address] [place] [address] 58214 Calcium [Mass/Vol] 8.7 mg/dL Normal 8.5 - 10.1 [facility] [place] Comment on above: Performed By: #### 2 23434 ####[facility] [place],[address] [place] [address] 95523 Chloride [Moles/Vol] 106 mmol/L Normal 98 - 107 [facility] [place] Comment on above: Performed By: #### 2 97272 ####[facility] [place],[address] [place] [address] CMP with eGFR Normal [facility] [place] Comment on above: Result Comment: COMP REHENSIVE METABOLIC PANEL Performed By: #### 2 30080 ####[facility] [place],[address] [place] [address] 75553 CO2 [Moles/Vol] 21.5 mmol/L Normal 21.0 - 32.0 [facility] [place] Comment on above: Performed By: #### 2 02994 ####[facility] [place],[address] [place] [address] 16509 Creatinine [Mass/Vol] 1.17 mg/dL High 0.55 - 1.02 [facility] Comment on above: Performed By: #### 2 50897 ####[facility] [place],[address] [place] [address] 89025 eGFR 52 ML/MINUTE Low 60 - 999 [facility] [place] Comment on above: Performed By: #### 2 95677 ####[address] [address] GFR/1.73 sq M.predicted among non-blacks MDRD (S/P/Bld) [Vol rate/Area] mL/min/{1.73_m2} Normal 60 - 999 [facility] [place] Comment on above: Result Comment: ACCO RDING TO THE NATIONAL KIDNEY DISEASE EDUCATION PROGRAM(NKDE), A NORMAL eGFRIS A VALUE GREATER THAN OR EQUAL TO 60 ML/MIN/1.73 SQ METERS.CHRONIC KIDNEY DISEASE: <60mL/MIN/1.73 SQ METERSKIDNEY FAILURE: <15mL/MIN/1.73 SQ METERSTHIS TEST SHOULD ONLY BE USED FOR PATIENTS 18 YEARS OF AGE AND OLDER. Performed By: #### 2 92937 ####[address] [address] Globulin (S) [Mass/Vol] 2.9 g/dL Normal 1.5 - 3.8 [facility] Comment on above: Performed By: #### 2 40236 ####[address] [address] Glucose [Mass/Vol] 101 mg/dL Normal 74 - 106 [facility] [place] Comment on above: Performed By: #### 2 59785 ####[address] [address] Potassium [Moles/Vol] 4.1 mmol/L Normal 3.5 - 5.1 [facility] Comment on above: Performed By: #### 2 26502 ####[address] [address] Protein [Mass/Vol] 6.6 g/dL Normal 6.4 - 8.2 [facility] [place] Comment on above: Performed By: #### 2 81027 ####[address],[place] [address] Sodium [Moles/Vol] 141 mmol/L Normal 136 - 145 [facility] [place] Comment on above: Performed By: #### 2 55883 ####[facility] [place],[address] [place], [place] [id number] Urea nitrogen [Mass/Vol] 13 mg/dL Normal 7 - 18 [facility] [place] Comment on above: Performed By: #### 2 99717 ####[facility] [place],[address] [place] [address] LACTATEon 05-26-2025 Lactate [Moles/Vol] 0.8 mmol/L Normal 0.4 - 2.0 [facility] [place] Comment on above: Performed By: #### 2 63062 ####[facility] [place],[address] [place] [address] SERUM QUALon 05-26 EXTERNAL QC DONE? YES Normal [facility] [place] Comment on above: Performed By: #### 2 92340 ####[facility] [place],[address] [place] [address] INTERNAL QC PASS Normal [facility] [place] Comment on above: Performed By: #### 2 81710 ####[facility] [place],[address] [place], [place] [id number] SER Negative Normal NEGATIVE [facility] [place] Comment on above: Performed By: #### 2 46151 ####[facility] [place],[address] [place] [address] 34483 URINALYSISon 05-26-2025 Amorphous 2+ Normal [facility] [place] Comment on above: Performed By: #### 2 85480 ####[facility] [place],[address] [place] [address] 38943 Bacteria 3+ Normal [facility] [place] Comment on above: Performed By: #### 2 04607 ####[facility] [place],[address] [place] [address] 26702 Bilirubin Ql (U) Negative Normal NORMAL: NEGATIVE [facility] [place] Comment on above: Performed By: #### 2 16672 ####[facility] [place],[address] [place] [address] 23447 Casts NONE Normal [facility] [place] Comment on above: Performed By: #### 2 16718 ####[facility] [place],[address] [place] [address] 61672 Clarity (U) sl.cloudy Normal NORMAL: CLEAR [facility] [place] Comment on above: Performed By: #### 2 32063 ####[facility] [place],[address] [place] [address] 48325 Color (U) yellow Normal NORMAL: YELLOW [facility] [place] Comment on above: Performed By: #### 2 37066 ####[facility] [place],[address] [place] [address] 92046 Crystals LM Nom (Urine sed) SEE BELOW Normal [facility] [place] Comment on above: Performed By: #### 2 40430 ####[facility] [place],[address] [place] [address] 38449 Epi Cells OCC Normal [facility] [place] Comment on above: Performed By: #### 2 27634 ####[facility] [place],[address] [place] [address] 47609 Glucose Ql (U) NORM Normal NORMAL: NORMAL [facility] [place] Comment on above: Performed By: #### 2 76815 ####[facility] [place],[address] [place] [address] 65083 Hemoglobin Ql (U) 150 Abnormal NORMAL: NEGATIVE [facility] [place] Comment on above: Performed By: #### 2 49589 ####[facility] [place],[address] [place] [address] 40222 Ketone Negative Normal NORMAL: NEGATIVE [facility] [place] Comment on above: Performed By: #### 2 56892 ####[facility] [place],[address] [place] [address] 06098 Leukocytes 500 Abnormal NORMAL: NEGATIVE [facility] [place] Comment on above: Performed By: #### 2 07556 ####[facility] [place],[address] [place] [address] Mucous NONE Normal [facility] [place] Comment on above: Performed By: #### 2 37069 ####[facility] [place],[address] [place] [address] Nitrite Ql (U) Positive Normal NORMAL: NEGATIVE [facility] [place] Comment on above: Performed By: #### 2 98393 ####[facility] [place],[address] [place] [address] pH (U) 8 [pH] Normal NORMAL: 5.0-8.0 [facility] [place] Comment on above: Performed By: #### 2 45787 ####[facility] [place],[address] [place] [address] Protein Ql (U) 100 Abnormal NORMAL: NEGATIVE [facility] [place] Comment on above: Performed By: #### 2 78804 ####[facility] [place],[address] [place] [address] Rbc 0-5 Normal 0-3/hpf [facility] [place] Comment on above: Performed By: #### 2 82474 ####[facility] [place],[address] [place] [address] Sp [place] 1.010 Normal NORMAL: 1.010-1.030 [facility] [place] Comment on above: Performed By: #### 2 64058 ####[facility] [place],[address] [place] [address] Specimen Type R Normal [facility] [place] Comment on above: Performed By: #### 2 82297 ####[facility] [place],[address] [place] [address] Triple Phos 1+ Normal NORMAL: NONE [facility] [place] Comment on above: Performed By: #### 2 68951 ####[facility] [place],[address] [place] [address] Urinalysis dipstick W Reflex Microscopic panel (U) SEE BELOW Normal [facility] [place] Comment on above: Result Comment: MICR OSCOPIC Performed By: #### 2 51804 ####[facility] [place],[address] [place] [address],[facility] [address] Urobilinog NORM Normal NORMAL: NORMAL [facility] [place] Comment on above: Performed By: #### 2 83508 ####[facility] [place],[address] [place] [address],[facility] [address] Wbc 11-15 Normal 0-5/hpf [facility] [place] Comment on above: Performed By: #### 2 43068 ####[facility] [place],[address] [place] [address],[facility] [address] Yeast NONE Normal [facility] [place] Comment on above: Performed By: #### 2 26389 ####[facility] [place],[address] [place], [place] [id number] .Auto Diffon 05-25-2025 Basophil, Absolute 0.1 10 3/mcL Normal 0.0-0.3 [facility] Comment on above: Performed By: #### G FR, BMP, ANEU, MDW, ADIFF, CBC ####[facility] [place] [address] Basophils/100 WBC (Bld) 1.3 % Normal 0.0-2.5 [facility] Comment on above: Performed By: #### G FR, BMP, ANEU, MDW, ADIFF, CBC ####[facility] [place] [address] Eosinophil, Absolute 0.2 10 3/mcL Normal 0.0-0.7 [facility] Comment on above: Performed By: #### G FR, BMP, ANEU, MDW, ADIFF, CBC ####[facility] [place] [address]60 Eosinophils/100 WBC (Bld) 1.8 % Normal 0.0-6.0 [facility] Comment on above: Performed By: #### G FR, BMP, ANEU, MDW, ADIFF, CBC ####[facility] [place] [address] Lymphocyte, Absolute 2.8 10 3/mcL Normal 0.9-4.3 [facility] Comment on above: Performed By: #### G FR, BMP, ANEU, MDW, ADIFF, CBC ####[address] [address] Lymphocytes/100 WBC (Bld) 27.0 % Normal 20.0-40.0 [facility] Comment on above: Performed By: #### G FR, BMP, ANEU, MDW, ADIFF, CBC ####[address] [address] Monocyte, Absolute 0.8 10 3/mcL Normal 0.1-1.4 [facility] Comment on above: Performed By: #### G FR, BMP, ANEU, MDW, ADIFF, CBC ####[address] [address] Monocytes/100 WBC (Bld) 8.0 % Normal 2.0-13.0 [facility] Comment on above: Performed By: #### G FR, BMP, ANEU, MDW, ADIFF, CBC ####[address] [address] Neutrophils/100 WBC (Bld) 61.9 % Normal 50.0-75.0 [facility] Comment on above: Performed By: #### G FR, BMP, ANEU, MDW, ADIFF, CBC ####[address] [address] .GFRon 05-25-2025 Estimated Glomerular Filtration Rate 81 ml/min/1.73sqm Normal [facility] Comment on above: Result Comment: Stag es of Chronic Kidney Disease (CKD)Stage Description eGFR(ml/min/1.73 sq.m.)CKD 1 Normal kidney function or >=90 normal kindney function with possible kidney damage (ex. Proteinuria)CKD 2 Kidney damage with mild loss 60-89 of kidney functionCKD 3a Mild to moderate loss of kidney 45-59 functionCKD 3b Moderate to severe loss of 30-44 of kindey function CKD 4 Severe loss of kidney function 15-29CKD 5 Kidney failure <15Note: (go live 2024) the eGFR calculation was updated to the KD-EPI creatinine equation without a race factor to calculate theeGFR results. Performed By: #### G FR, BMP, ANEU, MDW, ADIFF, CBC ####[place] [address] .MDWon 05-25-2025 Monocyte Distribution Width 21.37 High 0.00-20.00 [facility] Comment on above: Result Comment: For adults in ED, MDW>20.0 may be associated with a higher risk of sepsis during the first 12hrs of hospital admission Performed By: #### G FR, BMP, ANEU, MDW, ADIFF, CBC ####[place] [address] .NEUABSon 05-25-2025 Neutrophil, Absolute 6.4 10 3/mcL Normal 2.3-8.1 [facility] Comment on above: Performed By: #### G FR, BMP, ANEU, MDW, ADIFF, CBC ####[place] [address] BMPon 05-25-2025 BUN/Creatinine Ratio 7.4 ratio Low 10.0-22.0 [facility] Comment on above: Performed By: #### G FR, BMP, ANEU, MDW, ADIFF, CBC ####[place] [address] Calcium [Mass/Vol] 9.6 mg/dL Normal 8.7-10.4 [facility] Comment on above: Performed By: #### G FR, BMP, ANEU, MDW, ADIFF, CBC ####[place] [address] Chloride [Moles/Vol] 108 mmol/L Normal 98-110 [facility] Comment on above: Performed By: #### G FR, BMP, ANEU, MDW, ADIFF, CBC ####[place] [address] CO2 [Moles/Vol] 26 mmol/L Normal 22-32 [facility] Comment on above: Performed By: #### G FR, BMP, ANEU, MDW, ADIFF, CBC ####[address] [place] [address] Creatinine [Mass/Vol] 0.94 mg/dL Normal 0.50-1.20 [facility] Comment on above: Result Comment: Test ing performed on Algisys analyzer using enzymatic creatinine methodology. Performed By: #### G FR, ZENOBIA, GURMEET, YOUNG, ADIFF, CBC ####[place] [address] Electrolyte Balance 6.0 mEq/L Normal 4.0-15.0 [facility] Comment on above: Performed By: #### G FR, BMP, GURMEET, W, ADIFF, CBC ####[place] [address] Glucose [Mass/Vol] 92 mg/dL Normal 70-110 [facility] Comment on above: Performed By: #### G FR, ZENOBIA, GURMEET, W, ADIFF, CBC ####[place] [address] Potassium [Moles/Vol] 4.0 mmol/L Normal 3.5-5.0 [facility] Comment on above: Result Comment: Spec imen slightly hemolyzed. Performed By: #### G FR, ZENOBIA, GURMEET, YOUNG, ADIFF, CBC ####[place] [address] Sodium [Moles/Vol] 140 mmol/L Normal 136-145 [facility] Comment on above: Performed By: #### G FR, ZENOBIA, GURMEET, W, ADIFF, CBC ####[place] [address] Urea nitrogen [Mass/Vol] 7.0 mg/dL Low 8.0-22.0 [facility] Comment on above: Performed By: #### G FR, ZENOBIA, GURMEET, YOUNG, ADIFF, CBC ####[place] [address] CBCon 05-25-2025 Erythrocyte distribution width (RBC) [Ratio] 15.6 % High 11.5-15.5 [facility] Comment on above: Performed By: #### G FR, BMP, GURMEET, W, ADIFF, CBC ####[place] [address] Hematocrit (Bld) [Volume fraction] 41.5 % Normal 34.0-46.0 [facility] Comment on above: Performed By: #### G FR, BMP, ANEU, MDW, ADIFF, CBC ####[place] [address] Hgb 14.1 G/dL Normal 12.0-16.0 [facility] Comment on above: Performed By: #### G FR, BMP, ANEU, MDW, ADIFF, CBC ####[place] [address] MCH (RBC) [Entitic mass] 32.9 pg Normal 27.0-33.0 [facility] Comment on above: Performed By: #### G FR, BMP, ANEU, MDW, ADIFF, CBC ####[place] [address] MCHC 34.0 G/dL Normal 32.0-36.0 [facility] Comment on above: Performed By: #### G FR, BMP, ANEU, MDW, ADIFF, CBC ####[place] [address] MCV (RBC) [Entitic vol] 96.7 fL Normal 80.0-99.0 [facility] Comment on above: Performed By: #### G FR, BMP, ANEU, MDW, ADIFF, CBC ####[place] [address] Platelet 431 10 3/mcL Normal 150-450 [facility] Comment on above: Performed By: #### G FR, BMP, ANEU, MDW, ADIFF, CBC ####[place] [address] Platelet mean volume (Bld) [Entitic vol] 7.1 fL Normal 6.6-10.5 [facility] Comment on above: Performed By: #### G FR, BMP, ANEU, MDW, ADIFF, CBC ####[place] [address] RBC 4.29 10 6/mcL Normal 4.10-5.30 [facility] Comment on above: Performed By: #### G FR, BMP, GURMEET, YOUNG, ADMACEY, CBC ####[facility] [place] [address] WBC 10.3 10 3/mcL Normal 4.5-10.8 [facility] Comment on above: Performed By: #### G FR, BMP, ANEU, MDDaija, ADIFF, CBC ####[facility] [place] [address] ABDOMEN/PELVIS W/O CONTRA STon 05-25-2025 CT ABDOMEN/PELVIS W/O CONTRAST Normal [facility] LABORATORYOrdered By: Ricky Mary on 05-25-2025 Beta HCG ( test) Ql (U) Negative (05/25/25 10:32 PM) [facility] Work Phone: LABORATORYOrdered By: Rosalinda Tello on 05-25-2025 Appearance (U) Clear (05/25/25 10:20 PM) Normal Clear Auto Urine SS Bilirubin Ql (U) Negative (05/25/25 10:20 PM) Normal Neg-Trace AH Auto Urine SS Color (U) Yellow (05/25/25 10:20 PM) Normal AH Auto Urine SS Glucose Test strip (U) [Mass/Vol] Negative Normal Negative AH Auto Urine SS Hemoglobin Auto test strip (U) [Mass/Vol] Negative (05/25/25 10:20 PM) Normal Neg-Trace AH Auto Urine SS Ketones Ql (U) Negative Normal Neg-Trace AH Auto Urine SS UA Leuk Est Negative (05/25/25 10:20 PM) Normal Negative Auto Urine SS UA Nitrite Negative (05/25/25 10:20 PM) Normal Negative AH Auto Urine SS UA pH 8.0 (05/25/25 10:20 PM) Normal 5.0 - 8.0 Auto Urine SS UA Protein Negative Normal Negative AH Auto Urine SS UA Spec Grav 1.010 (05/25/25 10:20 PM) Normal 1.006-1.029 Auto Urine SS UA Specimen Type Clean Catch (05/25/25 10:20 PM) Normal Auto Urine SS UA Urobilinogen 1.0 E.U./dL Normal 0.2-1.0 AH Auto Urine SS LABORATORYOrdered By: SYSTEM SYSTEM on 05-25-2025 Basophils (Bld) [#/Vol] 0.1 103/mcL Normal 0.0 - 0.3 10^3/mcL AH Workflow SS Basophils/100 WBC (Bld) 1.3 % Normal 0.0 - 2.5 % AH Workflow SS Calcium [Mass/Vol] 9.6 mg/dL Normal 8.7 - 10. 4 mg/dL ADM SS Chloride [Moles/Vol] 108 mmol/L Normal 98 - 11 0 mEq/L ADM SS CO2 [Moles/Vol] 26 mmol/L Normal 22 - 32 mEq/L ADM SS Creatinine [Mass/Vol] 0.94 mg/dL Normal 0.50 - 1.20 mg/dL ADM SS Comment on above: Interpretive Data: T esting performed on Algisys analyzer using enzymatic creatinine methodology. Electrolyte Balance 6.0 mEq/L Normal 4.0 - 15 .0 mEq/L ADM SS Eosinophils (Bld) [#/Vol] 0.2 103/mcL Normal 0.0 - 0.7 10^3/mcL Workflow SS Eosinophils/100 WBC (Bld) 1.8 % Normal 0.0 - 6.0 % Workflow SS Erythrocyte distribution width (RBC) [Ratio] 15.6 % High 11.5 - 15.5 % Workflow SS Estimated Glomerular Filtration Rate 81 ml/min/1.73sqm Invalid Interpretation Code ADM SS Comment [...] to calculate the eGFR results. Glucose [Mass/Vol] 92 mg/dL Normal 70 - 110 mg/dL ADM SS Hematocrit (Bld) [Volume fraction] 41.5 % Normal 34.0 - 46.0 % AH Workflow SS Hemoglobin (Bld) [Mass/Vol] 14.1 G/dL Normal 12.0 - 16.0 G/dL AH Workflow SS Lymphocytes (Bld) [#/Vol] 2.8 103/mcL Normal 0.9 - 4.3 10^3/mcL AH Workflow SS Lymphocytes/100 WBC (Bld) 27.0 % Normal 20.0 - 40.0 % AH Workflow SS MCH (RBC) [Entitic mass] 32.9 pg Normal 27.0 - 33.0 pg AH Workflow SS MCHC 34.0 G/dL Normal 32.0 - 36.0 G/dL AH Workflow SS MCV (RBC) [Entitic vol] 96.7 fL Normal 80.0 - 99.0 fL AH Workflow SS Monocyte distribution width Auto (Bld) [Entitic vol] 21.37 1 High 0.00 - 20.00 AH Workflow SS Comment on above: Result Comment: For adults in ED, MDW>20.0 may be associated with a higher risk of sepsis during the first 12hrs of hospital admission Monocytes (Bld) [#/Vol] 0.8 103/mcL Normal 0.1 - 1.4 10^3/mcL AH Workflow SS Monocytes/100 WBC (Bld) 8.0 % Normal 2.0 - 13.0 % AH Workflow SS Neutrophils (Bld) [#/Vol] 6.4 103/mcL Normal 2.3 - 8.1 10^3/mcL AH Workflow SS Neutrophils/100 WBC (Bld) 61.9 % Normal 50.0 - 75.0 % AH Workflow SS Platelet mean volume (Bld) [Entitic vol] 7.1 fL Normal 6.6 - 10.5 fL AH Workflow SS Platelets (Bld) [#/Vol] 431 103/mcL Normal 150 - 450 10^3/mcL AH Workflow SS Potassium [Moles/Vol] 4.0 mmol/L Normal 3.5 - 5.0 mEq/L AH ADM SS Comment on above: Result Comment: Spec imen slightly hemolyzed. RBC (Bld) [#/Vol] 4.29 106/mcL Normal 4.10 - 5.3 0 10^6/mcL AH Workflow SS Sodium [Moles/Vol] 140 mmol/L Normal 136 - 145 mEq/L AH ADM SS Urea nitrogen [Mass/Vol] 7.0 mg/dL Low 8.0 - 22.0 mg/dL AH ADM SS Urea nitrogen/Creatinine [Mass ratio] 7.4 ratio Low 10.0 - 22.0 ratio AH ADM SS WBC (Bld) [#/Vol] 10.3 103/mcL Normal 4.5 - 10.8 10^3/mcL AH Workflow SS UAon 05-25-2025 Color (U) Yellow Normal [facility] Comment on above: Performed By: #### U A ####[place] [address] Glucose (U) [Mass/Vol] Negative Normal Negative [facility] Comment on above: Performed By: #### U A ####[place] [address] Ketones Ql (U) Negative Normal Neg-Trace [facility] Comment on above: Performed By: #### U A ####[place] [address] UA Appear Clear Normal Clear [facility] Comment on above: Performed By: #### U A ####[place] [address] UA Blood Negative Normal Neg-Trace [facility] Comment on above: Performed By: #### U A ####[place] [address] UA Leuk Est Negative Normal Negative [facility] Comment on above: Performed By: #### U A ####[place] [address] UA Nitrite Negative Normal Negative [facility] Comment on above: Performed By: #### U A ####[place] [address] UA pH 8.0 Normal 5.0 - 8.0 [facility] Comment on above: Performed By: #### U A ####[place] [address] UA Protein Negative Normal Negative [facility] Comment on above: Performed By: #### U A ####[place] [address] UA Spec Grav 1.010 Normal 1.006-1.029 [facility] Comment on above: Performed By: #### U A ####[place] [id number] [place] [address] UA Specimen Type Clean Catch Normal [facility] Comment on above: Performed By: #### U A ####[place] [id number] [place] [address] UA Urobilinogen 1.0 E.U./dL Normal 0.2-1.0 [facility] Comment on above: Performed By: #### U A ####[place] [address] Urobilinogen (U) [Mass/Vol] Negative Normal Neg-Trace [facility] Comment on above: Performed By: #### U A ####[place] [address] .Auto Diffon 05-09-2025 Basophil, Absolute 0.1 10 3/mcL Normal 0.0-0.3 [facility] Comment on above: Performed By: #### C BC, CMP, MDW, GFR, LIP, ADIFF, ANEU ####[place] [address] Basophils/100 WBC (Bld) 1.0 % Normal 0.0-2.5 [facility] Comment on above: Performed By: #### C BC, CMP, MDW, GFR, LIP, ADIFF, ANEU ####[address] [address] Eosinophil, Absolute 0.2 10 3/mcL Normal 0.0-0.7 [facility] Comment on above: Performed By: #### C BC, CMP, MDW, GFR, LIP, ADIFF, ANEU ####[address] [address] Eosinophils/100 WBC (Bld) 1.9 % Normal 0.0-6.0 [facility] Comment on above: Performed By: #### C BC, CMP, MDW, GFR, LIP, ADIFF, ANEU ####[place] [id number] Lymphocyte, Absolute 2.4 10 3/mcL Normal 0.9-4.3 [facility] Comment on above: Performed By: #### C BC, CMP, MDW, GFR, LIP, ADIFF, ANEU ####[address] [address] Lymphocytes/100 WBC (Bld) 27.3 % Normal 20.0-40.0 [facility] Comment on above: Performed By: #### C BC, CMP, MDW, GFR, LIP, ADIFF, ANEU ####[address] [address] Monocyte, Absolute 0.7 10 3/mcL Normal 0.1-1.4 [facility] Comment on above: Performed By: #### C BC, CMP, MDW, GFR, LIP, ADIFF, ANEU ####[address] [address] Monocytes/100 WBC (Bld) 7.9 % Normal 2.0-13.0 [facility] Comment on above: Performed By: #### C BC, CMP, MDW, GFR, LIP, ADIFF, ANEU ####[address] [address] Neutrophils/100 WBC (Bld) 61.9 % Normal 50.0-75.0 [facility] Comment on above: Performed By: #### C BC, CMP, MDW, GFR, LIP, ADIFF, ANEU ####[address] [address] .GFRon 05-09-2025 Estimated Glomerular Filtration Rate 90 ml/min/1.73sqm Normal [facility] Comment on above: Result Comment: Stag es of Chronic Kidney Disease (CKD)Stage Description eGFR(ml/min/1.73 sq.m.)CKD 1 Normal kidney function or >=90 normal kindney function with possible kidney damage (ex. Proteinuria)CKD 2 Kidney damage with mild loss 60-89 of kidney functionCKD 3a Mild to moderate loss of kidney 45-59 functionCKD 3b Moderate to severe loss of 30-44 of kindey function CKD 4 Severe loss of kidney function 15-29CKD 5 Kidney failure <15Note: (go live 2024) the eGFR calculation was updated to the 2021CKD-EPI creatinine equation without a race factor to calculate theeGFR results. Performed By: #### C BC, CMP, MDW, GFR, LIP, ADIFF, ANEU ####[place] [address] .MDWon 05-09-2025 Monocyte Distribution Width 19.78 Normal 0.00-20.00 [facility] Comment on above: Result Comment: For ED adult patients suspected of sepsis, MDW<=20.0 does not rule out sepsis or risk of sepsis Performed By: #### C BC, CMP, MDW, GFR, LIP, ADIFF, ANEU ####[place] [address] .NEUABSon 05-09-2025 Neutrophil, Absolute 5.4 10 3/mcL Normal 2.3-8.1 [facility] Comment on above: Performed By: #### C BC, CMP, MDW, GFR, LIP, ADIFF, ANEU ####[place] [address] BACTERIAL WOUND CULTURE [CCL ]on 05-09-2025 BACTERIAL WOUND CULTURE [CCL] Normal [facility] [place] Comment on above: Result Comment: _CUL TURE WOUND [CCL]_SEE SCANNED REPORT Performed By: #### 2 [id number] ####[facility] [place],[address] [place] [address] CBCon 05-09-2025 Erythrocyte distribution width (RBC) [Ratio] 15.0 % Normal 11.5-15.5 [facility] Comment on above: Performed By: #### C BC, CMP, MDW, GFR, LIP, ADIFF, ANEU ####[place] [address] Hematocrit (Bld) [Volume fraction] 35.4 % Normal 34.0-46.0 [facility] Comment on above: Performed By: #### C BC, CMP, MDW, GFR, LIP, ADIFF, ANEU ####[place] [address] Hgb 12.0 G/dL Normal 12.0-16.0 [facility] Comment on above: Performed By: #### C BC, CMP, MDW, GFR, LIP, ADIFF, ANEU ####[place] [address] MCH (RBC) [Entitic mass] 32.3 pg Normal 27.0-33.0 [facility] Comment on above: Performed By: #### C BC, CMP, MDW, GFR, LIP, ADIFF, ANEU ####[place] [address] MCHC 33.9 G/dL Normal 32.0-36.0 [facility] Comment on above: Performed By: #### C BC, CMP, MDW, GFR, LIP, ADIFF, ANEU ####[place] [address] MCV (RBC) [Entitic vol] 95.0 fL Normal 80.0-99.0 [facility] Comment on above: Performed By: #### C BC, CMP, MDW, GFR, LIP, ADIFF, ANEU ####[place] [address] Platelet 347 10 3/mcL Normal 150-450 [facility] Comment on above: Performed By: #### C BC, CMP, MDW, GFR, LIP, ADIFF, ANEU ####[place] [address] Platelet mean volume (Bld) [Entitic vol] 6.9 fL Normal 6.6-10.5 [facility] Comment on above: Performed By: #### C BC, CMP, MDW, GFR, LIP, ADIFF, ANEU ####[place] [address] RBC 3.73 10 6/mcL Low 4.10-5.30 [facility] Comment on above: Performed By: #### C BC, CMP, MDW, GFR, LIP, ADIFF, ANEU ####[place] [address] WBC 8.7 10 3/mcL Normal 4.5-10.8 [facility] Comment on above: Performed By: #### C BC, CMP, MDW, GFR, LIP, ADIFF, ANEU ####[place] [address] CMPon 05-09-2025 Albumin Level 3.7 G/dL Normal 3.2-4.8 [facility] Comment on above: Performed By: #### C BC, CMP, MDW, GFR, LIP, ADIFF, ANEU ####[place] [address] Albumin/Globulin [Mass ratio] 1.3 {ratio} Normal 0.9-1.6 [facility] Comment on above: Performed By: #### C BC, CMP, MDW, GFR, LIP, ADIFF, ANEU ####[place] [address] ALP [Catalytic activity/Vol] 71 U/L Normal 38-126 [facility] Comment on above: Performed By: #### C BC, CMP, MDW, GFR, LIP, ADIFF, ANEU ####[place] [address] ALT [Catalytic activity/Vol] 9 U/L Low 10-49 [facility] Comment on above: Performed By: #### C BC, CMP, MDW, GFR, LIP, ADIFF, ANEU ####[place] [address] AST [Catalytic activity/Vol] 18 U/L Normal 8-34 [facility] Comment on above: Performed By: #### C BC, CMP, MDW, GFR, LIP, ADIFF, ANEU ####[place] [address] Bili Total <0.20 Normal 0.20-1.20 [facility] Comment on above: Result Comment: Use of this assay is not recommended for patients undergoing treatment with eltrombopag due to the potential for falsely elevated results. Performed By: #### C BC, CMP, MDW, GFR, LIP, ADIFF, ANEU ####[place] [address] BUN/Creatinine Ratio 9.3 ratio Low 10.0-22.0 [facility] Comment on above: Performed By: #### C BC, CMP, MDW, GFR, LIP, ADIFF, ANEU ####[place] [id number] Calcium [Mass/Vol] 9.5 mg/dL Normal 8.7-10.4 [facility] Comment on above: Performed By: #### C BC, CMP, MDW, GFR, LIP, ADIFF, ANEU ####[place] [id number] Chloride [Moles/Vol] 103 mmol/L Normal 98-110 [facility] Comment on above: Performed By: #### C BC, CMP, MDW, GFR, LIP, ADIFF, ANEU ####[place] [id number] CO2 [Moles/Vol] 28 mmol/L Normal 22-32 [facility] Comment on above: Performed By: #### C BC, CMP, MDW, GFR, LIP, ADIFF, ANEU ####[place] [address] Creatinine [Mass/Vol] 0.86 mg/dL Normal 0.50-1.20 [facility] Comment on above: Result Comment: Test ing performed on Algisys analyzer using enzymatic creatinine methodology. Performed By: #### C BC, CMP, MDW, GFR, LIP, ADIFF, ANEU ####[place] [address] Electrolyte Balance 12.0 mEq/L Normal 4.0-15.0 [facility] Comment on above: Performed By: #### C BC, CMP, MDW, GFR, LIP, ADIFF, ANEU ####[place] [id number] Globulin 2.9 G/dL Normal 2.5-4.2 [facility] Comment on above: Performed By: #### C BC, CMP, MDW, GFR, LIP, ADIFF, ANEU ####[place] [address] Glucose [Mass/Vol] 93 mg/dL Normal 70-110 [facility] Comment on above: Performed By: #### C BC, CMP, MDW, GFR, LIP, ADIFF, ANEU ####[place] [id number] [place] [address] Potassium [Moles/Vol] 4.0 mmol/L Normal 3.5-5.0 [facility] Comment on above: Performed By: #### C BC, CMP, MDW, GFR, LIP, ADIFF, ANEU ####[place] [id number] [place] [address] Sodium [Moles/Vol] 143 mmol/L Normal 136-145 [facility] Comment on above: Performed By: #### C BC, CMP, MDW, GFR, LIP, ADIFF, ANEU ####[address] [address] Total Protein 6.6 G/dL Normal 5.7-8.2 [facility] Comment on above: Performed By: #### C BC, CMP, MDW, GFR, LIP, ADIFF, ANEU ####[place] [address] Urea nitrogen [Mass/Vol] 8.0 mg/dL Normal 8.0-22.0 [facility] Comment on above: Performed By: #### C BC, CMP, MDW, GFR, LIP, ADIFF, ANEU ####[place] [address] CT ABDOMEN/PELVIS W/O CONTRA STon 05-09-2025 CT ABDOMEN/PELVIS W/O CONTRAST Normal [facility] LABORATORYOrdered By: Guero Zendejas on 05-09-2025 Appearance (U) Clear (05/09/25 12:32 AM) Normal Clear Auto Urine SS Bacteria LM.HPF (Urine sed) [#/Area] Trace /HPF Invalid Interpretation Code Negative Auto Urine SS Bilirubin Ql (U) Negative (05/09/25 12:32 AM) Normal Neg-Trace Auto Urine SS Color (U) Yellow (05/09/25 12:32 AM) Normal AH Auto Urine SS Glucose Test strip (U) [Mass/Vol] Negative Normal Negative AH Auto Urine SS Hemoglobin Auto test strip (U) [Mass/Vol] Trace (05/09/25 12:32 AM) Normal Neg-Trace Auto Urine SS Ketones Ql (U) Negative Normal Neg-Trace AH Auto Urine SS UA Leuk Est Large *ABN* (05/09/25 12:32 AM) Invalid Interpretation Code Negative AH Auto Urine SS UA Mucous Trace /HPF Normal AH Auto Urine SS UA Nitrite Negative (05/09/25 12:32 AM) Normal Negative AH Auto Urine SS UA pH 8.5 *ABN* (05/09/25 12:32 AM) Invalid Interpretation Code 5.0 - 8.0 AH Auto Urine SS UA Protein Trace mg/dL Normal Negative AH Auto Urine SS UA RBC 0-2 /HPF Normal 0-2 AH Auto Urine SS UA Spec Grav <=1.005 *ABN* (05/09/25 12:32 AM) Invalid Interpretation Code 1.006-1.029 AH Auto Urine SS UA Specimen Type Void (05/09/25 12:32 AM) Normal AH Auto Urine SS UA Squam Epithelial 0-2 /HPF Normal 0-20 AH Au to Urine SS UA Urobilinogen 0.2 E.U./dL Normal 0.2-1.0 AH Auto Urine SS WBC LM.HPF (Urine sed) [#/Area] 5-10 /HPF Invalid Interpretation Code 0-5 AH Auto Urine SS LABORATORYOrdered By: SYSTEM SYSTEM on 05-09-2025 Albumin BCP dye [Mass/Vol] 3.7 G/dL Normal 3.2 - 4.8 G/dL AH ADM SS Albumin/Globulin [Mass ratio] 1.3 {ratio} Normal 0.9 - 1.6 ratio AH ADM SS ALP [Catalytic activity/Vol] 71 U/L Normal 38 - 126 U/L AH ADM SS ALT No additional P-5'-P [Catalytic activity/Vol] 9 U/L Low 10 - 49 U/L AH ADM SS AST [Catalytic activity/Vol] 18 U/L Normal 8 - 34 U/L AH ADM SS Basophils (Bld) [#/Vol] 0.1 103/mcL Normal 0.0 - 0.3 10^3/mcL AH Workflow SS Basophils/100 WBC (Bld) 1.0 % Normal 0.0 - 2.5 % AH Workflow SS Bilirubin [Mass/Vol] mg/dL Normal 0.20 - 1.20 mg/dL AH ADM SS Comment on above: Interpretive Data: U se of this assay is not recommended for patients undergoing treatment with eltrombopag due to the potential for falsely elevated results. Calcium [Mass/Vol] 9.5 mg/dL Normal 8.7 - 10. 4 mg/dL AH ADM SS Chloride [Moles/Vol] 103 mmol/L Normal 98 - 11 0 mEq/L AH ADM SS CO2 [Moles/Vol] 28 mmol/L Normal 22 - 32 mEq/L AH ADM SS Creatinine [Mass/Vol] 0.86 mg/dL Normal 0.50 - 1.20 mg/dL ADM SS Comment on above: Interpretive Data: T esting performed on Algisys analyzer using enzymatic creatinine methodology. Electrolyte Balance 12.0 mEq/L Normal 4.0 - 15 .0 mEq/L ADM SS Eosinophils (Bld) [#/Vol] 0.2 103/mcL Normal 0.0 - 0.7 10^3/mcL Workflow SS Eosinophils/100 WBC (Bld) 1.9 % Normal 0.0 - 6.0 % Workflow SS Erythrocyte distribution width (RBC) [Ratio] 15.0 % Normal 11.5 - 15.5 % Workflow SS Estimated Glomerular Filtration Rate 90 ml/min/1.73sqm Invalid Interpretation Code ADM SS Comment [...] factor to calculate the eGFR results. Globulin 2.9 G/dL Normal 2.5 - 4.2 G/dL ADM SS Glucose [Mass/Vol] 93 mg/dL Normal 70 - 110 mg/dL ADM SS Hematocrit (Bld) [Volume fraction] 35.4 % Normal 34.0 - 46.0 % Workflow SS Hemoglobin (Bld) [Mass/Vol] 12.0 G/dL Normal 12.0 - 16.0 G/dL Workflow SS Lipase [Catalytic activity/Vol] 23 U/L Normal 12 - 53 U/L AH ADM SS Lymphocytes (Bld) [#/Vol] 2.4 103/mcL Normal 0.9 - 4.3 10^3/mcL AH Workflow SS Lymphocytes/100 WBC (Bld) 27.3 % Normal 20.0 - 40.0 % AH Workflow SS MCH (RBC) [Entitic mass] 32.3 pg Normal 27.0 - 33.0 pg AH Workflow SS MCHC 33.9 G/dL Normal 32.0 - 36.0 G/dL AH Workflow SS MCV (RBC) [Entitic vol] 95.0 fL Normal 80.0 - 99.0 fL AH Workflow SS Monocyte distribution width Auto (Bld) [Entitic vol] 19.78 1 Normal 0.00 - 20.00 AH Workflow SS Comment on above: Result Comment: For ED adult patients suspected of sepsis, MDW<=20.0 does not rule out sepsis or risk of sepsis Monocytes (Bld) [#/Vol] 0.7 103/mcL Normal 0.1 - 1.4 10^3/mcL AH Workflow SS Monocytes/100 WBC (Bld) 7.9 % Normal 2.0 - 13.0 % AH Workflow SS Neutrophils (Bld) [#/Vol] 5.4 103/mcL Normal 2.3 - 8.1 10^3/mcL AH Workflow SS Neutrophils/100 WBC (Bld) 61.9 % Normal 50.0 - 75.0 % AH Workflow SS Platelet mean volume (Bld) [Entitic vol] 6.9 fL Normal 6.6 - 10.5 fL AH Workflow SS Platelets (Bld) [#/Vol] 347 103/mcL Normal 150 - 450 10^3/mcL AH Workflow SS Potassium [Moles/Vol] 4.0 mmol/L Normal 3.5 - 5.0 mEq/L ADM SS Protein [Mass/Vol] 6.6 G/dL Normal 5.7 - 8.2 G/dL AH ADM SS RBC (Bld) [#/Vol] 3.73 106/mcL Low 4.10 - 5.3 0 10^6/mcL AH Workflow SS Sodium [Moles/Vol] 143 mmol/L Normal 136 - 145 mEq/L ADM SS Urea nitrogen [Mass/Vol] 8.0 mg/dL Normal 8.0 - 22.0 mg/dL ADM SS Urea nitrogen/Creatinine [Mass ratio] 9.3 ratio Low 10.0 - 22.0 ratio AH ADM SS WBC (Bld) [#/Vol] 8.7 103/mcL Normal 4.5 - 10.8 10^3/mcL AH Workflow SS LIPon 05-09-2025 Lipase Level 23 U/L Normal 12-53 [facility] Comment on above: Performed By: #### C BC, CMP, MDW, GFR, LIP, ADIFF, ANEU ####[place] [address] UAon 05-09-2025 Color (U) Yellow Normal [facility] Comment on above: Performed By: #### U A, UAMIC ####[place] [address] Glucose (U) [Mass/Vol] Negative Normal Negative [facility] Comment on above: Performed By: #### U A, UAMIC ####[place] [address] Ketones Ql (U) Negative Normal Neg-Trace [facility] Comment on above: Performed By: #### U A, UAMIC ####[place] [address] UA Appear Clear Normal Clear [facility] Comment on above: Performed By: #### U A, UAMIC ####[place] [address] UA Blood Trace Normal NegTrace [facility] Comment on above: Performed By: #### U A, UAMIC ####[place] [address] UA Leuk Est Large Abnormal Negative [facility] Comment on above: Performed By: #### U A, UAMIC ####[place] [address] UA Nitrite Negative Normal Negative [facility] Comment on above: Performed By: #### U A, UAMIC ####[place] [address] UA pH 8.5 Abnormal 5.0 - 8.0 [facility] Comment on above: Performed By: #### U A, UAMIC ####[place] [address] UA Protein Trace Normal Negative [facility] Comment on above: Performed By: #### U A, UAMIC ####[place] [address] UA Spec Grav <=1.005 Abnormal 1.006-1.029 [facility] Comment on above: Performed By: #### U A, UAMIC ####[place] [address] UA Specimen Type Void Normal [facility] Comment on above: Performed By: #### U A, UAMIC ####[place] [address] UA Urobilinogen 0.2 E.U./dL Normal 0.2-1.0 [facility] Comment on above: Performed By: #### U A, UAMIC ####[place] [address] Urobilinogen (U) [Mass/Vol] Negative Normal Neg-Trace [facility] Comment on above: Performed By: #### U A, UAMIC ####[place] [address] UAMICon 05-09-2025 UA Bacteria Trace Abnormal Negative [facility] Comment on above: Performed By: #### U A, UAMIC ####[place] [address] UA Mucous Trace Normal [facility] Comment on above: Performed By: #### U A, UAMIC ####[place] [address] UA RBC 0-2 Normal 0-2 [facility] Comment on above: Performed By: #### U A, UAMIC ####[place] [address] UA Squam Epithelial 0-2 Normal 0-20 [facility] Comment on above: Performed By: #### U A, UAMIC ####[place] [address] UA WBC 5-10 Abnormal 0-5 [facility] Comment on above: Performed By: #### U A, UAMIC ####[address] [address] CBLon 05-08-2025 CBL Normal [facility] .Auto Diffon 05-07-2025 Basophil, Absolute 0.1 10 3/mcL Normal 0.0-0.3 [facility] Comment on above: Performed By: #### B MP, ANEU, CBC, MG, ADIFF, GFR ####[place] [address] Basophils/100 WBC (Bld) 0.9 % Normal 0.0-2.5 [facility] Comment on above: Performed By: #### B MP, ANEU, CBC, MG, ADIFF, GFR ####[place] [address] Eosinophil, Absolute 0.3 10 3/mcL Normal 0.0-0.7 [facility] Comment on above: Performed By: #### B MP, ANEU, CBC, MG, ADIFF, GFR ####[place] [address] Eosinophils/100 WBC (Bld) 3.1 % Normal 0.0-6.0 [facility] Comment on above: Performed By: #### B MP, ANEU, CBC, MG, ADIFF, GFR ####[place] [address] Lymphocyte, Absolute 2.0 10 3/mcL Normal 0.9-4.3 [facility] Comment on above: Performed By: #### B MP, ANEU, CBC, MG, ADIFF, GFR ####[place] [address] Lymphocytes/100 WBC (Bld) 22.6 % Normal 20.0-40.0 [facility] Comment on above: Performed By: #### B MP, ANEU, CBC, MG, ADIFF, GFR ####[place] [address] Monocyte, Absolute 0.8 10 3/mcL Normal 0.1-1.4 [facility] Comment on above: Performed By: #### B MP, ANEU, CBC, MG, ADIFF, GFR ####[address] [address] Monocytes/100 WBC (Bld) 9.2 % Normal 2.0-13.0 [facility] Comment on above: Performed By: #### B MP, ANEU, CBC, MG, ADIFF, GFR ####[address] [address] Neutrophils/100 WBC (Bld) 64.2 % Normal 50.0-75.0 [facility] Comment on above: Performed By: #### B MP, ANEU, CBC, MG, ADIFF, GFR ####[address] [address] .GFRon 05-07-2025 Estimated Glomerular Filtration Rate 94 ml/min/1.73sqm Normal [facility] Comment on above: Result Comment: Stag es of Chronic Kidney Disease (CKD)Stage Description eGFR(ml/min/1.73 sq.m.)CKD 1 Normal kidney function or >=90 normal kindney function with possible kidney damage (ex. Proteinuria)CKD 2 Kidney damage with mild loss 60-89 of kidney functionCKD 3a Mild to moderate loss of kidney 45-59 functionCKD 3b Moderate to severe loss of 30-44 of kindey function CKD 4 Severe loss of kidney function 15-29CKD 5 Kidney failure <15Note: (go live 2024) the eGFR calculation was updated to the KD-EPI creatinine equation without a race factor to calculate theeGFR results. Performed By: #### B MP, ANEU, CBC, MG, ADIFF, GFR ####[address] [address] .NEUABSon 05-07-2025 Neutrophil, Absolute 5.7 10 3/mcL Normal 2.3-8.1 [facility] Comment on above: Performed By: #### B MP, ANEU, CBC, MG, ADIFF, GFR ####[address] [address] BMPon 05-07-2025 BUN/Creatinine Ratio Unable to Calculate Normal 10.0-2 2.0 [facility] Comment on above: Result Comment: Unab le to calculate this test result accurately. Results used to calculate this test are outside the reportable range. Performed By: #### B MP, ANEU, CBC, MG, ADIFF, GFR ####[place] [id number] Urea nitrogen [Mass/Vol] mg/dL Low 8.0-22.0 [facility] Comment on above: Performed By: #### B MP, ANEU, CBC, MG, ADIFF, GFR ####[place] [id number] Calcium [Mass/Vol] 9.0 mg/dL Normal 8.7-10.4 [facility] Comment on above: Performed By: #### B MP, ANEU, CBC, MG, ADIFF, GFR ####[place] [address] Chloride [Moles/Vol] 109 mmol/L Normal 98-110 [facility] Comment on above: Performed By: #### B MP, ANEU, CBC, MG, ADIFF, GFR ####[place] [id number] CO2 [Moles/Vol] 26 mmol/L Normal 22-32 [facility] Comment on above: Performed By: #### B MP, ANEU, CBC, MG, ADIFF, GFR ####[place] [address] Creatinine [Mass/Vol] 0.83 mg/dL Normal 0.50-1.20 [facility] Comment on above: Result Comment: Test ing performed on Algisys analyzer using enzymatic creatinine methodology. Performed By: #### B MP, ANEU, CBC, MG, ADIFF, GFR ####[place] [address] Electrolyte Balance 7.0 mEq/L Normal 4.0-15.0 [facility] Comment on above: Performed By: #### B MP, ANEU, CBC, MG, ADIFF, GFR ####[place] [id number] Glucose [Mass/Vol] 91 mg/dL Normal 70-110 [facility] Comment on above: Performed By: #### B MP, ANEU, CBC, MG, ADIFF, GFR ####[place] [address] Potassium [Moles/Vol] 4.2 mmol/L Normal 3.5-5.0 [facility] Comment on above: Performed By: #### B MP, ANEU, CBC, MG, ADIFF, GFR ####[place] [address] Sodium [Moles/Vol] 142 mmol/L Normal 136-145 [facility] Comment on above: Performed By: #### B MP, ANEU, CBC, MG, ADIFF, GFR ####[place] [address] CBCon 05-07-2025 Erythrocyte distribution width (RBC) [Ratio] 15.4 % Normal 11.5-15.5 [facility] Comment on above: Performed By: #### B MP, ANEU, CBC, MG, ADIFF, GFR ####[place] [address] Hematocrit (Bld) [Volume fraction] 36.7 % Normal 34.0-46.0 [facility] Comment on above: Performed By: #### B MP, ANEU, CBC, MG, ADIFF, GFR ####[place] [address] Hgb 12.2 G/dL Normal 12.0-16.0 [facility] Comment on above: Performed By: #### B MP, ANEU, CBC, MG, ADIFF, GFR ####[place] [address] MCH (RBC) [Entitic mass] 32.8 pg Normal 27.0-33.0 [facility] Comment on above: Performed By: #### B MP, ANEU, CBC, MG, ADIFF, GFR ####[place] [address] MCHC 33.4 G/dL Normal 32.0-36.0 [facility] Comment on above: Performed By: #### B MP, ANEU, CBC, MG, ADIFF, GFR ####[place] [address] MCV (RBC) [Entitic vol] 98.4 fL Normal 80.0-99.0 [facility] Comment on above: Performed By: #### B MP, ANEU, CBC, MG, ADIFF, GFR ####[place] [address] Platelet 318 10 3/mcL Normal 150-450 [facility] Comment on above: Performed By: #### B MP, ANEU, CBC, MG, ADIFF, GFR ####[place] [address] Platelet mean volume (Bld) [Entitic vol] 7.0 fL Normal 6.6-10.5 [facility] Comment on above: Performed By: #### B MP, ANEU, CBC, MG, ADIFF, GFR ####[place] [address] RBC 3.73 10 6/mcL Low 4.10-5.30 [facility] Comment on above: Performed By: #### B MP, ANEU, CBC, MG, ADIFF, GFR ####[place] [address] WBC 8.8 10 3/mcL Normal 4.5-10.8 [facility] Comment on above: Performed By: #### B MP, ANEU, CBC, MG, ADIFF, GFR ####[place] [address] LABORATORYOrdered By: SYSTEM SYSTEM on 05-07-2025 Basophils (Bld) [#/Vol] 0.1 103/mcL Normal 0.0 - 0.3 10^3/mcL AH Workflow SS Basophils/100 WBC (Bld) 0.9 % Normal 0.0 - 2.5 % AH Workflow SS Calcium [Mass/Vol] 9.0 mg/dL Normal 8.7 - 10. 4 mg/dL AH ADM SS Chloride [Moles/Vol] 109 mmol/L Normal 98 - 11 0 mEq/L AH ADM SS CO2 [Moles/Vol] 26 mmol/L Normal 22 - 32 mEq/L ADM SS Creatinine [Mass/Vol] 0.83 mg/dL Normal 0.50 - 1.20 mg/dL ADM SS Comment on above: Interpretive Data: T esting performed on Algisys analyzer using enzymatic creatinine methodology. Electrolyte Balance 7.0 mEq/L Normal 4.0 - 15 .0 mEq/L ADM SS Eosinophils (Bld) [#/Vol] 0.3 103/mcL Normal 0.0 - 0.7 10^3/mcL Workflow SS Eosinophils/100 WBC (Bld) 3.1 % Normal 0.0 - 6.0 % Workflow SS Erythrocyte distribution width (RBC) [Ratio] 15.4 % Normal 11.5 - 15.5 % Workflow SS Estimated Glomerular Filtration Rate 94 ml/min/1.73sqm Invalid Interpretation Code Chemistry S Comment [...] to calculate the eGFR results. Glucose [Mass/Vol] 91 mg/dL Normal 70 - 110 mg/dL ADM SS Hematocrit (Bld) [Volume fraction] 36.7 % Normal 34.0 - 46.0 % Workflow SS Hemoglobin (Bld) [Mass/Vol] 12.2 G/dL Normal 12.0 - 16.0 G/dL Workflow SS Lymphocytes (Bld) [#/Vol] 2.0 103/mcL Normal 0.9 - 4.3 10^3/mcL Workflow SS Lymphocytes/100 WBC (Bld) 22.6 % Normal 20.0 - 40.0 % Workflow SS Magnesium [Mass/Vol] 2.0 mg/dL Normal 1.6 - 2 .4 mg/dL ADM SS MCH (RBC) [Entitic mass] 32.8 pg Normal 27.0 - 33.0 pg Workflow SS MCHC 33.4 G/dL Normal 32.0 - 36.0 G/dL Workflow SS MCV (RBC) [Entitic vol] 98.4 fL Normal 80.0 - 99.0 fL AH Workflow SS Monocytes (Bld) [#/Vol] 0.8 103/mcL Normal 0.1 - 1.4 10^3/mcL AH Workflow SS Monocytes/100 WBC (Bld) 9.2 % Normal 2.0 - 13.0 % AH Workflow SS Neutrophils (Bld) [#/Vol] 5.7 103/mcL Normal 2.3 - 8.1 10^3/mcL AH Workflow SS Neutrophils/100 WBC (Bld) 64.2 % Normal 50.0 - 75.0 % AH Workflow SS Platelet mean volume (Bld) [Entitic vol] 7.0 fL Normal 6.6 - 10.5 fL AH Workflow SS Platelets (Bld) [#/Vol] 318 103/mcL Normal 150 - 450 10^3/mcL AH Workflow SS Potassium [Moles/Vol] 4.2 mmol/L Normal 3.5 - 5.0 mEq/L AH ADM SS RBC (Bld) [#/Vol] 3.73 106/mcL Low 4.10 - 5.3 0 10^6/mcL AH Workflow SS Sodium [Moles/Vol] 142 mmol/L Normal 136 - 145 mEq/L AH ADM SS WBC (Bld) [#/Vol] 8.8 103/mcL Normal 4.5 - 10.8 10^3/mcL AH Workflow SS LABORATORYOrdered By: Jennifer Ching on 05-07-2025 Urea nitrogen [Mass/Vol] mg/dL Low 8.0 - 22.0 mg/dL Chemistry S Urea nitrogen/Creatinine [Mass ratio] Unable to Calculate Invalid Interpretation Code 10.0 - 22.0 Chemistry S Comment on above: Result Comment: Unab le to calculate this test result accurately. Results used to calculate this test are outside the reportable range. MGon 05-07-2025 Magnesium [Mass/Vol] 2.0 mg/dL Normal 1.6-2.4 [facility] Comment on above: Performed By: #### B MP, ANEU, CBC, MG, ADIFF, GFR ####[facility] [place] [address] URINE CULTURE [CCL]on 2024 Bacteria identified Cx Nom (U) Normal [facility] [place] Comment on above: Performed By: #### 2 [id number] ####[facility],[address] [place] [address] .Auto Diffon 05-05-2025 Basophil, Absolute 0.1 10 3/mcL Normal 0.0-0.3 [facility] Comment on above: Performed By: #### C BC, ANEU, ADIFF ####[facility] [place] [address] Basophils/100 WBC (Bld) 1.0 % Normal 0.0-2.5 [facility]IN Comment on above: Performed By: #### C BC, ANEU, ADIFF ####[facility] [place] [address] Eosinophil, Absolute 0.2 10 3/mcL Normal 0.0-0.7 [facility] Comment on above: Performed By: #### C BC, ANEU, ADIFF ####[facility] [place] [address] Eosinophils/100 WBC (Bld) 3.0 % Normal 0.0-6.0 [facility] Comment on above: Performed By: #### C BC, ANEU, ADIFF ####[facility] [place] [address] Lymphocyte, Absolute 2.3 10 3/mcL Normal 0.9-4.3 [facility] Comment on above: Performed By: #### C BC, ANEU, ADIFF ####[facility] [place] [address] Lymphocytes/100 WBC (Bld) 32.4 % Normal 20.0-40.0 [facility] Comment on above: Performed By: #### C BC, ANEU, ADIFF ####[facility] [place] [address] Monocyte, Absolute 0.6 10 3/mcL Normal 0.1-1.4 [facility] Comment on above: Performed By: #### C BC, ANEU, ADIFF ####[facility] [place] [address] Monocytes/100 WBC (Bld) 8.2 % Normal 2.0-13.0 [facility] Comment on above: Performed By: #### C LARISA, ANEU, ADIFF ####[address] [address] Neutrophils/100 WBC (Bld) 55.4 % Normal 50.0-75.0 [facility] Comment on above: Performed By: #### C LARISA, GURMEET, ADIFF ####[address] [address] .GFRon 05-05-2025 Estimated Glomerular Filtration Rate 84 ml/min/1.73sqm Normal [facility] Comment on above: Result Comment: Stag es of Chronic Kidney Disease (CKD)Stage Description eGFR(ml/min/1.73 sq.m.)CKD 1 Normal kidney function or >=90 normal kindney function with possible kidney damage (ex. Proteinuria)CKD 2 Kidney damage with mild loss 60-89 of kidney functionCKD 3a Mild to moderate loss of kidney 45-59 functionCKD 3b Moderate to severe loss of 30-44 of kindey function CKD 4 Severe loss of kidney function 15-29CKD 5 Kidney failure <15Note: (go live 2024) the eGFR calculation was updated to the KD-EPI creatinine equation without a race factor to calculate theeGFR results. Performed By: #### B MP, GFR ####[place] [address] .NEUABSon 05-05-2025 Neutrophil, Absolute 3.9 10 3/mcL Normal 2.3-8.1 [facility] Comment on above: Performed By: #### C GURMEET PERES, ADIFF ####[place] [address] BMPon 05-05-2025 BUN/Creatinine Ratio 6.6 ratio Low 10.0-22.0 [facility] Comment on above: Order Comment: Routi ne for 0501 the morning of patient admission. Performed By: #### B MP, GFR ####[place] [address] Calcium [Mass/Vol] 8.8 mg/dL Normal 8.7-10.4 [facility] Comment on above: Order Comment: Routi ne for 0501 the morning of patient admission. Performed By: #### B MP, GFR ####[place] [address] Chloride [Moles/Vol] 111 mmol/L High 98-110 [facility] Comment on above: Order Comment: Routi ne for 0501 the morning of patient admission. Performed By: #### B MP, GFR ####[place] [id number] CO2 [Moles/Vol] 22 mmol/L Normal 22-32 [facility] Comment on above: Order Comment: Routi ne for 0501 the morning of patient admission. Performed By: #### B MP, GFR ####[place] [id number] Creatinine [Mass/Vol] 0.91 mg/dL Normal 0.50-1.20 [facility] Comment on above: Order Comment: Routi ne for 0501 the morning of patient admission. Result Comment: Test ing performed on Algisys analyzer using enzymatic creatinine methodology. Performed By: #### B MP, GFR ####[place] [address] Electrolyte Balance 9.0 mEq/L Normal 4.0-15.0 [facility] Comment on above: Order Comment: Routi ne for 0501 the morning of patient admission. Performed By: #### B MP, GFR ####[place] [address] Glucose [Mass/Vol] 84 mg/dL Normal 70-110 [facility] Comment on above: Order Comment: Routi ne for 0501 the morning of patient admission. Performed By: #### B MP, GFR ####[place] [address] Potassium [Moles/Vol] 4.1 mmol/L Normal 3.5-5.0 [facility] Comment on above: Order Comment: Routi ne for 0501 the morning of patient admission. Performed By: #### B MP, GFR ####[place] [address] Sodium [Moles/Vol] 142 mmol/L Normal 136-145 [facility] Comment on above: Order Comment: Routi ne for 0501 the morning of patient admission. Performed By: #### B MP, GFR ####[place] [address] Urea nitrogen [Mass/Vol] 6.0 mg/dL Low 8.0-22.0 [facility] Comment on above: Order Comment: Routi ne for 0501 the morning of patient admission. Performed By: #### B MP, GFR ####[place] [address] CBCon 05-05-2025 Erythrocyte distribution width (RBC) [Ratio] 15.5 % Normal 11.5-15.5 [facility] Comment on above: Order Comment: Routi ne for 0501 the morning of patient admission. Performed By: #### C BC, ANEU, ADIFF ####[place] [address] Hematocrit (Bld) [Volume fraction] 33.8 % Low 34.0-46.0 [facility] Comment on above: Order Comment: Routi ne for 0501 the morning of patient admission. Performed By: #### C BC, ANEU, ADIFF ####[place] [address] Hgb 11.7 G/dL Low 12.0-16.0 [facility] Comment on above: Order Comment: Routi ne for 0501 the morning of patient admission. Performed By: #### C BC, ANEU, ADIFF ####[place] [address] MCH (RBC) [Entitic mass] 33.5 pg High 27.0-33.0 [facility] Comment on above: Order Comment: Routi ne for 0501 the morning of patient admission. Performed By: #### C BC, ANEU, ADIFF ####[place] [address] MCHC 34.6 G/dL Normal 32.0-36.0 [facility] Comment on above: Order Comment: Routi ne for 0501 the morning of patient admission. Performed By: #### C BC, ANEU, ADIFF ####[place] [address] MCV (RBC) [Entitic vol] 96.8 fL Normal 80.0-99.0 [facility] Comment on above: Order Comment: Routi ne for 0501 the morning of patient admission. Performed By: #### C GURMEET PERES, ADIFF ####[place] [address] Platelet 350 10 3/mcL Normal 150-450 [facility] Comment on above: Order Comment: Routi ne for 0501 the morning of patient admission. Performed By: #### C GURMEET PERES, ADIFF ####[place] [address] Platelet mean volume (Bld) [Entitic vol] 7.0 fL Normal 6.6-10.5 [facility] Comment on above: Order Comment: Routi ne for 0501 the morning of patient admission. Performed By: #### C GURMEET PERES, ADIFF ####[place] [address] RBC 3.49 10 6/mcL Low 4.10-5.30 [facility] Comment on above: Order Comment: Routi ne for 0501 the morning of patient admission. Performed By: #### C GURMEET PERES, ADIFF ####[place] [address] WBC 7.1 10 3/mcL Normal 4.5-10.8 [facility] Comment on above: Order Comment: Routi ne for 0501 the morning of patient admission. Performed By: #### C GURMEET PERES, ADIFF ####[place] [address] IR NEPHROSTOMY TUBEon 2024 IR NEPHROSTOMY TUBE Normal [facility] MAIN LABORATORYOrdered By: SYSTEM SYSTEM on 05-05-2025 Basophils (Bld) [#/Vol] 0.1 103/mcL Normal 0.0 - 0.3 10^3/mcL AH Workflow SS Basophils/100 WBC (Bld) 1.0 % Normal 0.0 - 2.5 % AH Workflow SS Calcium [Mass/Vol] 8.8 mg/dL Normal 8.7 - 10. 4 mg/dL AH ADM SS Chloride [Moles/Vol] 111 mmol/L High 98 - 11 0 mEq/L ADM SS CO2 [Moles/Vol] 22 mmol/L Normal 22 - 32 mEq/L ADM SS Creatinine [Mass/Vol] 0.91 mg/dL Normal 0.50 - 1.20 mg/dL ADM SS Comment on above: Interpretive Data: T esting performed on Algisys analyzer using enzymatic creatinine methodology. Electrolyte Balance 9.0 mEq/L Normal 4.0 - 15 .0 mEq/L ADM SS Eosinophils (Bld) [#/Vol] 0.2 103/mcL Normal 0.0 - 0.7 10^3/mcL Workflow SS Eosinophils/100 WBC (Bld) 3.0 % Normal 0.0 - 6.0 % Workflow SS Erythrocyte distribution width (RBC) [Ratio] 15.5 % Normal 11.5 - 15.5 % Workflow SS Estimated Glomerular Filtration Rate 84 ml/min/1.73sqm Invalid Interpretation Code Chemistry S Comment [...] to calculate the eGFR results. Glucose [Mass/Vol] 84 mg/dL Normal 70 - 110 mg/dL ADM SS Hematocrit (Bld) [Volume fraction] 33.8 % Low 34.0 - 46.0 % Workflow SS Hemoglobin (Bld) [Mass/Vol] 11.7 G/dL Low 12.0 - 16.0 G/dL Workflow SS Lymphocytes (Bld) [#/Vol] 2.3 103/mcL Normal 0.9 - 4.3 10^3/mcL Workflow SS Lymphocytes/100 WBC (Bld) 32.4 % Normal 20.0 - 40.0 % Workflow SS MCH (RBC) [Entitic mass] 33.5 pg High 27.0 - 33.0 pg AH Workflow SS MCHC 34.6 G/dL Normal 32.0 - 36.0 G/dL AH Workflow SS MCV (RBC) [Entitic vol] 96.8 fL Normal 80.0 - 99.0 fL AH Workflow SS Monocytes (Bld) [#/Vol] 0.6 103/mcL Normal 0.1 - 1.4 10^3/mcL AH Workflow SS Monocytes/100 WBC (Bld) 8.2 % Normal 2.0 - 13.0 % AH Workflow SS Neutrophils (Bld) [#/Vol] 3.9 103/mcL Normal 2.3 - 8.1 10^3/mcL AH Workflow SS Neutrophils/100 WBC (Bld) 55.4 % Normal 50.0 - 75.0 % AH Workflow SS Platelet mean volume (Bld) [Entitic vol] 7.0 fL Normal 6.6 - 10.5 fL AH Workflow SS Platelets (Bld) [#/Vol] 350 103/mcL Normal 150 - 450 10^3/mcL AH Workflow SS Potassium [Moles/Vol] 4.1 mmol/L Normal 3.5 - 5.0 mEq/L AH ADM SS RBC (Bld) [#/Vol] 3.49 106/mcL Low 4.10 - 5.3 0 10^6/mcL AH Workflow SS Sodium [Moles/Vol] 142 mmol/L Normal 136 - 145 mEq/L AH ADM SS Urea nitrogen [Mass/Vol] 6.0 mg/dL Low 8.0 - 22.0 mg/dL AH ADM SS Urea nitrogen/Creatinine [Mass ratio] 6.6 ratio Low 10.0 - 22.0 ratio AH ADM SS WBC (Bld) [#/Vol] 7.1 103/mcL Normal 4.5 - 10.8 10^3/mcL AH Workflow SS LABORATORYOrdered By: Nick Boswell on 05-05-2025 Beta HCG ( test) Ql (U) Negative (05/05/25 12:44 AM) [facility] Work Phone: .Auto Diffon 05-04-2025 Basophil, Absolute 0.1 10 3/mcL Normal 0.0-0.3 [facility] Comment on above: Performed By: #### B MP, CBC, GFR, ADIFF, ANEU, MDW ####[address] [address] Basophils/100 WBC (Bld) 0.8 % Normal 0.0-2.5 [facility] Comment on above: Performed By: #### B MP, CBC, GFR, ADIFF, YOUNG LEVI ####[address] [address] Eosinophil, Absolute 0.1 10 3/mcL Normal 0.0-0.7 [facility] Comment on above: Performed By: #### B MP, CBC, GFR, ADGURMEET CHOUDHURY MDW ####[address] [address] Eosinophils/100 WBC (Bld) 1.2 % Normal 0.0-6.0 [facility] Comment on above: Performed By: #### B MP, CBC, GFR, ADGURMEET CHOUDHURY MDW ####[address] [address] Lymphocyte, Absolute 2.2 10 3/mcL Normal 0.9-4.3 [facility] Comment on above: Performed By: #### B MP, CBC, GFR, ADGURMEET CHOUDHURY MDW ####[address] [address] Lymphocytes/100 WBC (Bld) 28.8 % Normal 20.0-40.0 [facility] Comment on above: Performed By: #### B MP, CBC, GFR, ADIFFGURMEET MDW ####[address] [address] Monocyte, Absolute 0.6 10 3/mcL Normal 0.1-1.4 [facility] Comment on above: Performed By: #### B MP, CBC, GFR, ADIFFGURMEET MDW ####[address] [address] Monocytes/100 WBC (Bld) 7.4 % Normal 2.0-13.0 [facility] Comment on above: Performed By: #### B MP, CBC, GFR, ADIFFGURMEET MDW ####[address] [address] Neutrophils/100 WBC (Bld) 61.8 % Normal 50.0-75.0 [facility] Comment on above: Performed By: #### B MP, CBC, GFR, ADGURMEET CHOUDHURY MDW ####[place] [address] .GFRon 05-04-2025 Estimated Glomerular Filtration Rate 83 ml/min/1.73sqm Normal [facility] Comment on above: Result Comment: Stag es of Chronic Kidney Disease (CKD)Stage Description eGFR(ml/min/1.73 sq.m.)CKD 1 Normal kidney function or >=90 normal kindney function with possible kidney damage (ex. Proteinuria)CKD 2 Kidney damage with mild loss 60-89 of kidney functionCKD 3a Mild to moderate loss of kidney 45-59 functionCKD 3b Moderate to severe loss of 30-44 of kindey function CKD 4 Severe loss of kidney function 15-29CKD 5 Kidney failure <15Note: (go live 2024) the eGFR calculation was updated to the KD-EPI creatinine equation without a race factor to calculate theeGFR results. Performed By: #### B MP, CBC, GFR, GURMEET SIDDIQUI MDW ####[place] [address] .MDWon 05-04-2025 Monocyte Distribution Width 19.63 Normal 0.00-20.00 [facility] Comment on above: Result Comment: For ED adult patients suspected of sepsis, MDW<=20.0 does not rule out sepsis or risk of sepsis Performed By: #### B MP, CBC, GFR, ADGURMEET CHOUDHURY MDW ####[place] [address] .NEUABSon 05-04-2025 Neutrophil, Absolute 4.6 10 3/mcL Normal 2.3-8.1 [facility] Comment on above: Performed By: #### B MP, CBC, GFR, ADIFFGURMEET MDW ####[place] [address] BMPon 05-04-2025 BUN/Creatinine Ratio Unable to Calculate Normal 10.0-2 2.0 [facility] Comment on above: Result Comment: Unab le to calculate this test result accurately. Results used to calculate this test are outside the reportable range. Performed By: #### B MP, CBC, GFR, GURMEET SIDDIQUI MDW ####[address] [address] Urea nitrogen [Mass/Vol] mg/dL Low 8.0-22.0 [facility] Comment on above: Performed By: #### B MP, CBC, GFR, GURMEET SIDDIQUI MDW ####[address] [address] Calcium [Mass/Vol] 9.2 mg/dL Normal 8.7-10.4 [facility] Comment on above: Performed By: #### B MP, CBC, GFR, ADGURMEET CHOUDHURY MDW ####[address] [address] Chloride [Moles/Vol] 109 mmol/L Normal 98-110 [facility] Comment on above: Performed By: #### B MP, CBC, GFR, GURMEET SIDDIQUI MDW ####[address] [address] CO2 [Moles/Vol] 25 mmol/L Normal 22-32 [facility] Comment on above: Performed By: #### B MP, CBC, GFR, GURMEET SIDDIQUI MDW ####[address] [address] Creatinine [Mass/Vol] 0.92 mg/dL Normal 0.50-1.20 [facility] Comment on above: Result Comment: Test ing performed on Algisys analyzer using enzymatic creatinine methodology. Performed By: #### B MP, CBC, GFR, GURMEET SIDDIQUI MDW ####[address] [address] Electrolyte Balance 8.0 mEq/L Normal 4.0-15.0 [facility] Comment on above: Performed By: #### B MP, CBC, GFR, ADGURMEET CHOUDHURY MDW ####[address] [address] Glucose [Mass/Vol] 91 mg/dL Normal 70-110 [facility] Comment on above: Performed By: #### B MP, CBC, GFR, GURMEET SIDDIQUI MDW ####[place] [address] Potassium [Moles/Vol] 4.2 mmol/L Normal 3.5-5.0 [facility] Comment on above: Performed By: #### B MP, CBC, GFR, GURMEET SIDDIQUI MDW ####[place] [address] Sodium [Moles/Vol] 142 mmol/L Normal 136-145 [facility] Comment on above: Performed By: #### B MP, CBC, GFR, GURMEET SIDDIQUI MDW ####[place] [address] CBCon 05-04-2025 Erythrocyte distribution width (RBC) [Ratio] 15.4 % Normal 11.5-15.5 [facility] Comment on above: Performed By: #### B MP, CBC, GFR, ADGURMEET CHOUDHURY MDW ####[place] [address] Hematocrit (Bld) [Volume fraction] 35.2 % Normal 34.0-46.0 [facility] Comment on above: Performed By: #### B MP, CBC, GFR, GURMEET SIDDIQUI MDW ####[place] [address] Hgb 12.6 G/dL Normal 12.0-16.0 [facility] Comment on above: Performed By: #### B MP, CBC, GFR, GURMEET SIDDIQUI MDW ####[place] [address] MCH (RBC) [Entitic mass] 33.7 pg High 27.0-33.0 [facility] Comment on above: Performed By: #### B MP, CBC, GFR, ADGURMEET CHOUDHURY MDW ####[place] [address] MCHC 35.7 G/dL Normal 32.0-36.0 [facility] Comment on above: Performed By: #### B MP, CBC, GFR, GURMEET SIDDIQUI MDW ####[place] [address] MCV (RBC) [Entitic vol] 94.3 fL Normal 80.0-99.0 [facility] Comment on above: Performed By: #### B MP, CBC, GFR, GURMEET SIDDIQUI MDW ####[place] [address] Platelet 336 10 3/mcL Normal 150-450 [facility] Comment on above: Performed By: #### B MP, CBC, GFR, ADGURMEET CHOUDHURY MDW ####[place] [address] Platelet mean volume (Bld) [Entitic vol] 6.6 fL Normal 6.6-10.5 [facility] Comment on above: Performed By: #### B MP, CBC, GFRCHEN ANEU, MDW ####[place] [address] RBC 3.73 10 6/mcL Low 4.10-5.30 [facility] Comment on above: Performed By: #### B MP, CBC, GFR, GURMEET SIDDIQUI MDW ####[place] [address] WBC 7.5 10 3/mcL Normal 4.5-10.8 [facility] Comment on above: Performed By: #### B MP, CBC, GFR, GURMEET SIDDIQUI MDW ####[place] [address] CURon 05-04-2025 CUR Normal [facility] ED MED ADMINISTRATION DETAIL on 05-04-2025 ED MED ADMINISTRATION DETAIL Normal [facility] [facility] [place] ED NURSES CLINICAL NOTEon ED NURSES CLINICAL NOTE Normal [facility] ED ORDER SHEET (CPOE ONLY)on 05-04-2025 ED ORDER SHEET (CPOE ONLY) Normal [facility] [place] ED PHYSICIAN CLINICAL REPORT on 05-04-2025 ED PHYSICIAN CLINICAL REPORT Normal [facility] [place] ED SUPER BILLon 05-04-2025 ED SUPER BILL Normal [facility] [place] ED VISIT SUMMARYon ED VISIT SUMMARY Normal [facility] [place] ED VITALS FLOW SHEETon 05-04 ED VITALS FLOW SHEET Normal [facility] [place] LABORATORYOrdered By: Alanna Russo on 05-04-2025 Appearance (U) Clear (05/04/25 9:38 PM) Normal Clear AH Auto Urine SS Bilirubin Ql (U) Negative (05/04/25 9:38 PM) Normal Neg-Trace AH Auto Urine SS Color (U) Yellow (05/04/25 9:38 PM) Normal AH Auto Urine SS Glucose Test strip (U) [Mass/Vol] Negative Normal Negative AH Auto Urine SS Hemoglobin Auto test strip (U) [Mass/Vol] Negative (05/04/25 9:38 PM) Normal Neg-Trace AH Auto Urine SS Ketones Ql (U) Negative Normal Neg-Trace AH Auto Urine SS UA Leuk Est Negative (05/04/25 9:38 PM) Normal Negative AH Auto Urine SS UA Nitrite Negative (05/04/25 9:38 PM) Normal Negative AH Auto Urine SS UA pH 8.0 (05/04/25 9:38 PM) Normal 5.0 - 8.0 AH Auto Urine SS UA Protein Negative Normal Negative AH Auto Urine SS UA Spec Grav 1.010 (05/04/25 9:38 PM) Normal 1.006-1.029 AH Auto Urine SS UA Specimen Type Void (05/04/25 9:38 PM) Normal AH Auto Urine SS UA Urobilinogen 0.2 E.U./dL Normal 0.2-1.0 AH Auto Urine SS LABORATORYOrdered By: SYSTEM SYSTEM on 05-04-2025 Basophils (Bld) [#/Vol] 0.1 103/mcL Normal 0.0 - 0.3 10^3/mcL AH Workflow SS Basophils/100 WBC (Bld) 0.8 % Normal 0.0 - 2.5 % AH Workflow SS Calcium [Mass/Vol] 9.2 mg/dL Normal 8.7 - 10. 4 mg/dL AH ADM SS Chloride [Moles/Vol] 109 mmol/L Normal 98 - 11 0 mEq/L AH ADM SS CO2 [Moles/Vol] 25 mmol/L Normal 22 - 32 mEq/L AH ADM SS Creatinine [Mass/Vol] 0.92 mg/dL Normal 0.50 - 1.20 mg/dL ADM SS Comment on above: Interpretive Data: T esting performed on [employer] CH analyzer using enzymatic creatinine methodology. Electrolyte Balance 8.0 mEq/L Normal 4.0 - 15 .0 mEq/L ADM SS Eosinophils (Bld) [#/Vol] 0.1 103/mcL Normal 0.0 - 0.7 10^3/mcL Workflow SS Eosinophils/100 WBC (Bld) 1.2 % Normal 0.0 - 6.0 % Workflow SS Erythrocyte distribution width (RBC) [Ratio] 15.4 % Normal 11.5 - 15.5 % Workflow SS Estimated Glomerular Filtration Rate 83 ml/min/1.73sqm Invalid Interpretation Code [facility] SS Comment on above: Interpretive [...] to calculate the eGFR results. Glucose [Mass/Vol] 91 mg/dL Normal 70 - 110 mg/dL ADM SS Hematocrit (Bld) [Volume fraction] 35.2 % Normal 34.0 - 46.0 % Workflow SS Hemoglobin (Bld) [Mass/Vol] 12.6 G/dL Normal 12.0 - 16.0 G/dL Workflow SS Lymphocytes (Bld) [#/Vol] 2.2 103/mcL Normal 0.9 - 4.3 10^3/mcL Workflow SS Lymphocytes/100 WBC (Bld) 28.8 % Normal 20.0 - 40.0 % Workflow SS MCH (RBC) [Entitic mass] 33.7 pg High 27.0 - 33.0 pg Workflow SS MCHC 35.7 G/dL Normal 32.0 - 36.0 G/dL Workflow SS MCV (RBC) [Entitic vol] 94.3 fL Normal 80.0 - 99.0 fL AH Workflow SS Monocyte distribution width Auto (Bld) [Entitic vol] 19.63 1 Normal 0.00 - 20.00 AH Workflow SS Comment on above: Result Comment: For ED adult patients suspected of sepsis, MDW<=20.0 does not rule out sepsis or risk of sepsis Monocytes (Bld) [#/Vol] 0.6 103/mcL Normal 0.1 - 1.4 10^3/mcL AH Workflow SS Monocytes/100 WBC (Bld) 7.4 % Normal 2.0 - 13.0 % AH Workflow SS Neutrophils (Bld) [#/Vol] 4.6 103/mcL Normal 2.3 - 8.1 10^3/mcL AH Workflow SS Neutrophils/100 WBC (Bld) 61.8 % Normal 50.0 - 75.0 % AH Workflow SS Platelet mean volume (Bld) [Entitic vol] 6.6 fL Normal 6.6 - 10.5 fL AH Workflow SS Platelets (Bld) [#/Vol] 336 103/mcL Normal 150 - 450 10^3/mcL AH Workflow SS Potassium [Moles/Vol] 4.2 mmol/L Normal 3.5 - 5.0 mEq/L AH ADM SS RBC (Bld) [#/Vol] 3.73 106/mcL Low 4.10 - 5.3 0 10^6/mcL AH Workflow SS Sodium [Moles/Vol] 142 mmol/L Normal 136 - 145 mEq/L ADM SS WBC (Bld) [#/Vol] 7.5 103/mcL Normal 4.5 - 10.8 10^3/mcL Workflow SS LABORATORYOrdered By: Fabián robles on 05-04-2025 Urea nitrogen [Mass/Vol] mg/dL Low 8.0 - 22.0 mg/dL ADM SS Urea nitrogen/Creatinine [Mass ratio] Unable to Calculate Invalid Interpretation Code 10.0 - 22.0 ADM SS Comment on above: Result Comment: Unab le to calculate this test result accurately. Results used to calculate this test are outside the reportable range. UAon 05-04-2025 Color (U) Yellow Normal [facility] Comment on above: Performed By: #### U A ####[address] [address] Glucose (U) [Mass/Vol] Negative Normal Negative [facility] Comment on above: Performed By: #### U A ####[place] [address] Ketones Ql (U) Negative Normal Neg-Trace [facility] Comment on above: Performed By: #### U A ####[place] [address] UA Appear Clear Normal Clear [facility] Comment on above: Performed By: #### U A ####[place] [address] UA Blood Negative Normal Neg-Trace [facility] Comment on above: Performed By: #### U A ####[place] [address] UA Leuk Est Negative Normal Negative [facility] Comment on above: Performed By: #### U A ####[place] [address] UA Nitrite Negative Normal Negative [facility] Comment on above: Performed By: #### U A ####[place] [address] UA pH 8.0 Normal 5.0 - 8.0 [facility] Comment on above: Performed By: #### U A ####[place] [address] UA Protein Negative Normal Negative [facility] Comment on above: Performed By: #### U A ####[place] [address] UA Spec Grav 1.010 Normal 1.006-1.029 [facility] Comment on above: Performed By: #### U A ####[place] [address] UA Specimen Type Void Normal [facility] Comment on above: Performed By: #### U A ####[place] [address] UA Urobilinogen 0.2 E.U./dL Normal 0.2-1.0 [facility] Comment on above: Performed By: #### U A ####[id number] [place] [address] Urobilinogen (U) [Mass/Vol] Negative Normal Neg-Trace [facility] Comment on above: Performed By: #### U A ####[address] [address] .Auto Diffon 05-03-2025 Basophil, Absolute 0.0 10 3/mcL Normal 0.0-0.3 [facility] Comment on above: Performed By: #### C BC, LAC, ADIFF, MDW, GFR, ANEU, CMP ####[place] [address] Basophils/100 WBC (Bld) 0.5 % Normal 0.0-2.5 [facility] Comment on above: Performed By: #### C BC, LAC, ADIFF, MDW, GFR, ANEU, CMP ####[place] [address] Eosinophil, Absolute 0.2 10 3/mcL Normal 0.0-0.7 [facility] Comment on above: Performed By: #### C BC, LAC, ADIFF, MDW, GFR, ANEU, CMP ####[place] [address] Eosinophils/100 WBC (Bld) 2.5 % Normal 0.0-6.0 [facility] Comment on above: Performed By: #### C BC, LAC, ADIFF, MDW, GFR, ANEU, CMP ####[place] [address] Lymphocyte, Absolute 2.1 10 3/mcL Normal 0.9-4.3 [facility] Comment on above: Performed By: #### C BC, LAC, ADIFF, MDW, GFR, ANEU, CMP ####[place] [id number] Lymphocytes/100 WBC (Bld) 23.8 % Normal 20.0-40.0 [facility] Comment on above: Performed By: #### C BC, LAC, ADIFF, MDW, GFR, ANEU, CMP ####[place] [id number] Monocyte, Absolute 0.9 10 3/mcL Normal 0.1-1.4 [facility] Comment on above: Performed By: #### C BC, LAC, ADIFF, MDW, GFR, ANEU, CMP ####[address] [address] Monocytes/100 WBC (Bld) 10.3 % Normal 2.0-13.0 [facility] Comment on above: Performed By: #### C BC, LAC, ADIFF, MDW, GFR, ANEU, CMP ####[address] [address] Neutrophils/100 WBC (Bld) 62.9 % Normal 50.0-75.0 [facility] Comment on above: Performed By: #### C BC, LAC, ADIFF, MDW, GFR, ANEU, CMP ####[address] [address] .GFRon 05-03-2025 Estimated Glomerular Filtration Rate 84 ml/min/1.73sqm Normal [facility] Comment on above: Result Comment: Stag es of Chronic Kidney Disease (CKD)Stage Description eGFR(ml/min/1.73 sq.m.)CKD 1 Normal kidney function or >=90 normal kindney function with possible kidney damage (ex. Proteinuria)CKD 2 Kidney damage with mild loss 60-89 of kidney functionCKD 3a Mild to moderate loss of kidney 45-59 functionCKD 3b Moderate to severe loss of 30-44 of kindey function CKD 4 Severe loss of kidney function 15-29CKD 5 Kidney failure <15Note: (go live 2024) the eGFR calculation was updated to the KD-EPI creatinine equation without a race factor to calculate theeGFR results. Performed By: #### C BC, LAC, ADIFF, MDW, GFR, ANEU, CMP ####[address] [address] .MDWon 05-03-2025 Monocyte Distribution Width 19.35 Normal 0.00-20.00 [facility] Comment on above: Result Comment: For ED adult patients suspected of sepsis, MDW<=20.0 does not rule out sepsis or risk of sepsis Performed By: #### C BC, LAC, ADIFF, MDW, GFR, ANEU, CMP ####[place] [address] .NEUABSon 05-03-2025 Neutrophil, Absolute 5.5 10 3/mcL Normal 2.3-8.1 [facility] Comment on above: Performed By: #### C BC, LAC, ADIFF, MDW, GFR, ANEU, CMP ####[place] [address] CBCon 05-03-2025 Erythrocyte distribution width (RBC) [Ratio] 15.1 % Normal 11.5-15.5 [facility] Comment on above: Performed By: #### C BC, LAC, ADIFF, MDW, GFR, ANEU, CMP ####[place] [address] Hematocrit (Bld) [Volume fraction] 36.4 % Normal 34.0-46.0 [facility] Comment on above: Performed By: #### C BC, LAC, ADIFF, MDW, GFR, ANEU, CMP ####[place] [address] Hgb 12.3 G/dL Normal 12.0-16.0 [facility] Comment on above: Performed By: #### C BC, LAC, ADIFF, MDW, GFR, ANEU, CMP ####[place] [address] MCH (RBC) [Entitic mass] 32.5 pg Normal 27.0-33.0 [facility] Comment on above: Performed By: #### C BC, LAC, ADIFF, MDW, GFR, ANEU, CMP ####[place] [address] MCHC 33.9 G/dL Normal 32.0-36.0 [facility] Comment on above: Performed By: #### C BC, LAC, ADIFF, MDW, GFR, ANEU, CMP ####[place] [address] MCV (RBC) [Entitic vol] 96.0 fL Normal 80.0-99.0 [facility] Comment on above: Performed By: #### C BC, LAC, ADMACEY, MDW, GFR, ANEU, CMP ####[address] [address] Platelet 314 10 3/mcL Normal 150-450 [facility] Comment on above: Performed By: #### C BC, LAC, ADIFF, MDW, GFR, ANEU, CMP ####[address] [address] Platelet mean volume (Bld) [Entitic vol] 7.4 fL Normal 6.6-10.5 [facility] Comment on above: Performed By: #### C BC, LAC, ADIFF, MDW, GFR, ANEU, CMP ####[place] [address] RBC 3.79 10 6/mcL Low 4.10-5.30 [facility] Comment on above: Performed By: #### C BC, LAC, ADIFF, MDW, GFR, ANEU, CMP ####[place] [address] WBC 8.7 10 3/mcL Normal 4.5-10.8 [facility] Comment on above: Performed By: #### C BC, LAC, ADMACEY, MDW, GFR, ANEU, CMP ####[place] [address] CBC + DIFFon 05-03-2025 Baso # 0.03 x10EE3/UL Normal 0.00 - 0.10 [facility] [place] Comment on above: Performed By: #### 2 48201 ####[facility] [place],[address] [place] [address] Basophils/100 WBC (Bld) 0.4 % Normal 0.0 - 2.0 [facility] Comment on above: Performed By: #### 2 80088 ####[facility] [place],[address] [place] [address] CBC + DIFF Normal [facility] [place] Comment on above: Result Comment: CBC- COMPLETE BLOOD COUNT Performed By: #### 2 57724 ####[facility] [place],[address] [place], [place] [id number] EO # 0.29 x10EE3/UL Normal 0.00 - 0.50 [facility] [place] Comment on above: Performed By: #### 2 88761 ####[facility] [place],[address] [place] [address] Eosinophils/100 WBC (Bld) 3.4 % Normal 0.0 - 7.0 [facility] [place] Comment on above: Performed By: #### 2 81166 ####[facility] [place],[address] [place] [address] Erythrocyte distribution width (RBC) [Ratio] 14.2 % Normal 12.0 - 15.6 [facility] [place] Comment on above: Performed By: #### 2 63568 ####[facility] [place],[address] [place] [address] Hematocrit (Bld) [Volume fraction] 32.5 % Low 34.0 - 46.0 [facility] [place] Comment on above: Performed By: #### 2 60446 ####[facility] [place],[address] [place] [address] Hemoglobin (Bld) [Mass/Vol] 11.5 g/dL Low 12.0 - 16.0 [facility] [place] Comment on above: Performed By: #### 2 26012 ####[facility] [place],[address] [place] [address] Lymph # 1.68 x10EE3/UL Normal 0.80 - 2.80 [facility] [place] Comment on above: Performed By: #### 2 83218 ####[facility] [place],[address] [place] [address] Lymphocytes/100 WBC (Bld) 19.8 % Low 20.0 - 45.0 [facility] [place] Comment on above: Performed By: #### 2 84740 ####[facility] [place],[address] [place], [place] [id number] MANUAL DIFF N/A Normal [facility] [place] Comment on above: Performed By: #### 2 43068 ####[facility],[address] [place] [address] MCH (RBC) [Entitic mass] 34 pg High 27 - 33 [facility] [place] Comment on above: Performed By: #### 2 98318 ####[facility] [place],[address] [place] [address] MCHC 35 X10 3 Normal 32 - 36 [facility] [place] Comment on above: Performed By: #### 2 97176 ####[facility] [place],[address] [place] [address] MCV (RBC) [Entitic vol] 97 fL Normal 80 - 99 [facility] Comment on above: Performed By: #### 2 92990 ####[facility] [place],[address] [place] [address] Moca # 0.74 x10EE3/UL Normal 0.20 - 1.00 [facility] [place] Comment on above: Performed By: #### 2 76532 ####[facility] [place],[address] [place] [address] MONOS % 8.7 % Normal 0.0 - 10.0 [facility] [place] Comment on above: Performed By: #### 2 43642 ####[facility] [place],[address] [place] [address] Morphology Efra (Bld) [Interp] N/A Normal [facility] [place] Comment on above: Performed By: #### 2 79715 ####[facility] [place],[address] [place] [address] Neut # 5.74 x10EE3/UL Normal 1.50 - 7.10 [facility] [place] Comment on above: Performed By: #### 2 23673 ####[facility] [place],[address] [place] [address] Neutrophils/100 WBC (Bld) 67.7 % Normal 46.0 - 76.0 [facility] [place] Comment on above: Performed By: #### 2 59976 ####[facility] [place],[address] [place] [address] PLATELET 328 x10EE3/UL Normal 150 - 450 [facility] [place] Comment on above: Performed By: #### 2 86489 ####[facility] [place],[address] [place] [address] Platelet mean volume (Bld) [Entitic vol] 6.8 fL Normal 6.6 - 10.5 [facility] [place] Comment on above: Result Comment: AUTO MATED DIFFERENTIAL Performed By: #### 2 31355 ####[facility] [place],[address] [place] [address] RBC 3.35 x 10EE6/UL Low 4.10 - 5.30 [facility] [place] Comment on above: Performed By: #### 2 96641 ####[facility] [place],[address] [place] [address] WBC 8.5 x 10EE3/UL Normal 4.5 - 10.8 [facility] [place] Comment on above: Performed By: #### 2 95252 ####[facility] [place],[address] [place] [address] Baso # 0.04 x10EE3/UL Normal 0.00 - 0.10 [facility] [place] Comment on above: Performed By: #### 2 43512 ####[facility] [place],[address] [place] [address] Basophils/100 WBC (Bld) 0.4 % Normal 0.0 - 2.0 [facility] Comment on above: Performed By: #### 2 84375 ####[facility] [place],[address] [place] [address] CBC + DIFF Normal [facility] [place] Comment on above: Result Comment: CBC- COMPLETE BLOOD COUNT Performed By: #### 2 96310 ####[facility] [place],[address] [place] [address] EO # 0.23 x10EE3/UL Normal 0.00 - 0.50 [facility] [place] Comment on above: Performed By: #### 2 24516 ####[place] [id number] Eosinophils/100 WBC (Bld) 2.4 % Normal 0.0 - 7.0 [facility] [place] Comment on above: Performed By: #### 2 85125 ####[place] [address] Erythrocyte distribution width (RBC) [Ratio] 13.8 % Normal 12.0 - 15.6 [facility] [place] Comment on above: Performed By: #### 2 09326 ####[place] [address] Hematocrit (Bld) [Volume fraction] 37.3 % Normal 34.0 - 46.0 [facility] [place] Comment on above: Performed By: #### 2 80486 ####[place] [address] Hemoglobin (Bld) [Mass/Vol] 13.0 g/dL Normal 12.0 - 16.0 [facility] [place] Comment on above: Performed By: #### 2 55557 ####[place] [address] Lymph # 2.29 x10EE3/UL Normal 0.80 - 2.80 [facility] [place] Comment on above: Performed By: #### 2 52977 ####[place] [address] Lymphocytes/100 WBC (Bld) 23.2 % Normal 20.0 - 45.0 [facility] [place] Comment on above: Performed By: #### 2 64266 ####[place] [address] MANUAL DIFF N/A Normal [facility] [place] Comment on above: Performed By: #### 2 34705 ####[place] [address] MCH (RBC) [Entitic mass] 34 pg High 27 - 33 [facility] [place] Comment on above: Performed By: #### 2 83132 ####[facility] [place],[address] [place] [address] MCHC 35 X10 3 Normal 32 - 36 [facility] [place] Comment on above: Performed By: #### 2 60965 ####[facility] [place],[address] [place] [address] MCV (RBC) [Entitic vol] 96 fL Normal 80 - 99 [facility] Comment on above: Performed By: #### 2 65710 ####[facility] [place],[address] [place] [address] Moca # 0.89 x10EE3/UL Normal 0.20 - 1.00 [facility] [place] Comment on above: Performed By: #### 2 49232 ####[facility] [place],[address] [place] [address] MONOS % 9.0 % Normal 0.0 - 10.0 [facility] [place] Comment on above: Performed By: #### 2 51825 ####[facility] [place],[address] [place] [address] Morphology Efra (Bld) [Interp] N/A Normal [facility] [place] Comment on above: Performed By: #### 2 89932 ####[facility] [place],[address] [place] [address] Neut # 6.41 x10EE3/UL Normal 1.50 - 7.10 [facility] [place] Comment on above: Performed By: #### 2 05552 ####[address] [address] Neutrophils/100 WBC (Bld) 65.1 % Normal 46.0 - 76.0 [facility] [place] Comment on above: Performed By: #### 2 29224 ####[facility] [place],[address] [place] [address] PLATELET 371 x10EE3/UL Normal 150 - 450 [facility] [place] Comment on above: Performed By: #### 2 54117 ####[facility] [place],[address] [place] [address] Platelet mean volume (Bld) [Entitic vol] 6.7 fL Normal 6.6 - 10.5 [facility] [place] Comment on above: Result Comment: AUTO MATED DIFFERENTIAL Performed By: #### 2 89920 ####[facility] [place],[address] [place] [address] RBC 3.87 x 10EE6/UL Low 4.10 - 5.30 [facility] [place] Comment on above: Performed By: #### 2 58927 ####[facility] [place],[address] [place] [address] WBC 9.9 x 10EE3/UL Normal 4.5 - 10.8 [facility] [place] Comment on above: Performed By: #### 2 98287 ####[facility] [place],[address] [place] [address] CMPon 05-03-2025 Albumin Level 3.5 G/dL Normal 3.2-4.8 [facility] Comment on above: Performed By: #### C KI PERES ADIFF, MDW, GFR, ANEU, CMP ####[address] [address] Albumin/Globulin [Mass ratio] 1.5 {ratio} Normal 0.9-1.6 [facility] Comment on above: Performed By: #### C KI PERES ADIFF, MDW, GFR, ANEU, CMP ####[address] [address] ALP [Catalytic activity/Vol] 62 U/L Normal 38-126 [facility] Comment on above: Performed By: #### C KI PERES ADIFF, MDW, GFR, ANEU, CMP ####[address] [address] ALT [Catalytic activity/Vol] 10 U/L Normal 10-49 [facility] Comment on above: Performed By: #### C BC, LAC, ADIFF, MDW, GFR, ANEU, CMP ####[address] [address] AST [Catalytic activity/Vol] 22 U/L Normal 8-34 [facility] Comment on above: Performed By: #### C BC, LAC, ADIFF, MDW, GFR, ANEU, CMP ####[address] [address] Bili Total 0.20 mg/dL Normal 0.20-1.20 [facility] Comment on above: Result Comment: Use of this assay is not recommended for patients undergoing treatment with eltrombopag due to the potential for falsely elevated results. Performed By: #### C BC, LAC, ADMACEY, MDW, GFR, ANEU, CMP ####[place] [address] BUN/Creatinine Ratio 8.8 ratio Low 10.0-22.0 [facility] Comment on above: Performed By: #### C BC, LAC, ADIFF, MDW, GFR, ANEU, CMP ####[place] [id number] Calcium [Mass/Vol] 8.3 mg/dL Low 8.7-10.4 [facility] Comment on above: Performed By: #### C BC, LAC, ADIFF, MDW, GFR, ANEU, CMP ####[address] [address] Chloride [Moles/Vol] 111 mmol/L High 98-110 [facility] Comment on above: Performed By: #### C BC, LAC, ADIFF, MDW, GFR, ANEU, CMP ####[address] [address] CO2 [Moles/Vol] 24 mmol/L Normal 22-32 [facility] Comment on above: Performed By: #### C BC, LAC, ADIFF, MDW, GFR, ANEU, CMP ####[address] [address] Creatinine [Mass/Vol] 0.91 mg/dL Normal 0.50-1.20 [facility] Comment on above: Result Comment: Test ing performed on Algisys analyzer using enzymatic creatinine methodology. Performed By: #### C BC, LAC, ADIFF, MDW, GFR, ANEU, CMP ####[place] [phone] Electrolyte Balance 4.0 mEq/L Normal 4.0-15.0 [facility] Comment on above: Performed By: #### C BC, LAC, ADIFF, MDW, GFR, ANEU, CMP ####[address] [address] Globulin 2.4 G/dL Low 2.5-4.2 [facility] Comment on above: Performed By: #### C BC, LAC, ADIFF, MDW, GFR, ANEU, CMP ####[place] [phone] Glucose [Mass/Vol] 85 mg/dL Normal 70-110 [facility] Comment on above: Performed By: #### C BC, LAC, ADIFF, MDW, GFR, ANEU, CMP ####[place] [address] Potassium [Moles/Vol] 5.0 mmol/L Normal 3.5-5.0 [facility] Comment on above: Result Comment: Spec imen slightly hemolyzed. Performed By: #### C BC, LAC, ADIFF, MDW, GFR, ANEU, CMP ####[place] [phone] Sodium [Moles/Vol] 139 mmol/L Normal 136-145 [facility] Comment on above: Performed By: #### C BC, LAC, ADIFF, MDW, GFR, ANEU, CMP ####[place] [phone] Total Protein 5.9 G/dL Normal 5.7-8.2 [facility] Comment on above: Performed By: #### C BC, LAC, ADIFF, MDW, GFR, ANEU, CMP ####[place] [phone] Urea nitrogen [Mass/Vol] 8.0 mg/dL Normal 8.0-22.0 [facility] Comment on above: Performed By: #### C BC, LAC, ADMACEY, MDW, GFR, ANEU, CMP ####[place] [address] CMP with eGFRon 05-03-2025 AGE 34 years Normal [facility] Comment on above: Performed By: #### 2 [id number] ####[facility] [place],[address] [place] [address] Albumin [Mass/Vol] 2.9 g/dL Low 3.4 - 5.0 [facility] Comment on above: Performed By: #### 2 67902 ####[facility] [place],[address] [place] [address] Albumin/Globulin [Mass ratio] 1.0 {ratio} Normal 0.9 - 1.6 [facility] Comment on above: Performed By: #### 2 74719 ####[facility] [place],[address] [place] [address] ALK PHOS 64 U/L Normal 46 - 116 [facility] Comment on above: Performed By: #### 2 91256 ####[facility] [place],[address] [place] [address] ALT [Catalytic activity/Vol] 17 U/L Normal 16 - 63 [facility] Comment on above: Performed By: #### 2 43944 ####[facility] [place],[address] [place] [address] Anion gap [Moles/Vol] 11 mmol/L Normal 10 - 20 [facility] Comment on above: Performed By: #### 2 47816 ####[facility],[address] [place] [address] AST [Catalytic activity/Vol] 15 U/L Normal 13 - 39 [facility] Comment on above: Performed By: #### 2 58746 ####[facility] [place],[address] [place] [address] B/C RATIO 9 ratio Normal 0 - 30 [facility] Comment on above: Performed By: #### 2 79830 ####[facility] [place],[address] [place] [address] Bilirubin [Mass/Vol] 0.3 mg/dL Normal 0.2 - 1.0 [facility] Comment on above: Performed By: #### 2 78714 ####[facility] [place],[address] [place] [address] Calcium [Mass/Vol] 8.3 mg/dL Low 8.5 - 10.1 [facility] Comment on above: Performed By: #### 2 53528 ####[facility] [place],[address] [place] [address] Chloride [Moles/Vol] 107 mmol/L Normal 98 - 107 [facility] Comment on above: Performed By: #### 2 31403 ####[facility] [place],[address] [place] [address] CMP with eGFR Normal [facility] Comment on above: Result Comment: COMP REHENSIVE METABOLIC PANEL Performed By: #### 2 73971 ####[facility],[address] [place] [address] CO2 [Moles/Vol] 25.1 mmol/L Normal 21.0 - 32.0 [facility] Comment on above: Performed By: #### 2 36892 ####[facility] [place],[address] [place] [address] Creatinine [Mass/Vol] 0.81 mg/dL Normal 0.55 - 1.02 [facility] Comment on above: Performed By: #### 2 93125 ####[facility] [place],[address] [place] [address] GFR/1.73 sq M.predicted among non-blacks MDRD (S/P/Bld) [Vol rate/Area] mL/min/{1.73_m2} Normal 60 - 999 [facility] Comment on above: Performed By: #### 2 58797 ####[facility] [place],[address] [place] [address] Result Comment: ACCO RDING TO THE NATIONAL KIDNEY DISEASE EDUCATION PROGRAM(NKDE), A NORMAL eGFRIS A VALUE GREATER THAN OR EQUAL TO 60 ML/MIN/1.73 SQ METERS.CHRONIC KIDNEY DISEASE: <60mL/MIN/1.73 SQ METERSKIDNEY FAILURE: <15mL/MIN/1.73 SQ METERSTHIS TEST SHOULD ONLY BE USED FOR PATIENTS 18 YEARS OF AGE AND OLDER. Globulin (S) [Mass/Vol] 2.8 g/dL Normal 1.5 - 3.8 [facility] Comment on above: Performed By: #### 2 09410 ####[place] [address] Glucose [Mass/Vol] 82 mg/dL Normal 74 - 106 [facility] Comment on above: Performed By: #### 2 09396 ####[place] [address] Potassium [Moles/Vol] 3.9 mmol/L Normal 3.5 - 5.1 [facility] Comment on above: Performed By: #### 2 57365 ####[place] [address] Protein [Mass/Vol] 5.7 g/dL Low 6.4 - 8.2 [facility] Comment on above: Performed By: #### 2 59452 ####[facility] [place],[address] [place], [place] [phone] Sodium [Moles/Vol] 139 mmol/L Normal 136 - 145 [facility] Comment on above: Performed By: #### 2 20189 ####[place] [phone] Urea nitrogen [Mass/Vol] 7 mg/dL Normal 7 - 18 [facility] Comment on above: Performed By: #### 2 49907 ####[place] [phone] AGE 34 years Normal [facility] Comment on above: Performed By: #### 2 67243 ####[facility],[address] [place] [address] Albumin [Mass/Vol] 3.4 g/dL Normal 3.4 - 5.0 [facility] Comment on above: Performed By: #### 2 25854 ####[facility] [place],[address] [place] [address] Albumin/Globulin [Mass ratio] 1.0 {ratio} Normal 0.9 - 1.6 [facility] Comment on above: Performed By: #### 2 82115 ####[facility],[address] [place] [address] ALK PHOS 74 U/L Normal 46 - 116 [facility] Comment on above: Performed By: #### 2 32814 ####[place] [address] ALT [Catalytic activity/Vol] 20 U/L Normal 16 - 63 [facility] Comment on above: Performed By: #### 2 06372 ####[facility] [place],[address] [place], [place] [id number] Anion gap [Moles/Vol] 15 mmol/L Normal 10 - 20 [facility] Comment on above: Performed By: #### 2 61552 ####[place] [address] AST [Catalytic activity/Vol] 11 U/L Low 13 - 39 [facility] Comment on above: Performed By: #### 2 92058 ####[place] [phone] B/C RATIO 7 ratio Normal 0 - 30 [facility] Comment on above: Performed By: #### 2 92722 ####[place] [address] Bilirubin [Mass/Vol] 0.5 mg/dL Normal 0.2 - 1.0 [facility] Comment on above: Performed By: #### 2 33712 ####[place] [address] Calcium [Mass/Vol] 8.8 mg/dL Normal 8.5 - 10.1 [facility] Comment on above: Performed By: #### 2 48179 ####[place] [address] Chloride [Moles/Vol] 103 mmol/L Normal 98 - 107 [facility] Comment on above: Performed By: #### 2 95497 ####[place] [address] CMP with eGFR Normal [facility] Comment on above: Result Comment: COMP REHENSIVE METABOLIC PANEL Performed By: #### 2 02301 ####[place] [address] CO2 [Moles/Vol] 25.4 mmol/L Normal 21.0 - 32.0 [facility] Comment on above: Performed By: #### 2 72793 ####[place] [address] Creatinine [Mass/Vol] 0.99 mg/dL Normal 0.55 - 1.02 [facility] Comment on above: Performed By: #### 2 79691 ####[place] [address] GFR/1.73 sq M.predicted among non-blacks MDRD (S/P/Bld) [Vol rate/Area] mL/min/{1.73_m2} Normal 60 - 999 [facility] Comment on above: Performed By: #### 2 99557 ####[facility],[address] [place] [address] Result Comment: ACCO RDING TO THE NATIONAL KIDNEY DISEASE EDUCATION PROGRAM(NKDE), A NORMAL eGFRIS A VALUE GREATER THAN OR EQUAL TO 60 ML/MIN/1.73 SQ METERS.CHRONIC KIDNEY DISEASE: <60mL/MIN/1.73 SQ METERSKIDNEY FAILURE: <15mL/MIN/1.73 SQ METERSTHIS TEST SHOULD ONLY BE USED FOR PATIENTS 18 YEARS OF AGE AND OLDER. Globulin (S) [Mass/Vol] 3.3 g/dL Normal 1.5 - 3.8 [facility] Comment on above: Performed By: #### 2 66567 ####[facility],[address] [place] [address] Glucose [Mass/Vol] 109 mg/dL High 74 - 106 [facility] Comment on above: Performed By: #### 2 48444 ####[facility],[address] [place] [address] Potassium [Moles/Vol] 3.3 mmol/L Low 3.5 - 5.1 [facility] Comment on above: Performed By: #### 2 33076 ####[facility] [place],[address] [place] [address] Protein [Mass/Vol] 6.7 g/dL Normal 6.4 - 8.2 [facility] Comment on above: Performed By: #### 2 10334 ####[facility],[address] [place] [address] Sodium [Moles/Vol] 140 mmol/L Normal 136 - 145 [facility] Comment on above: Performed By: #### 2 30155 ####[facility] [place],[address] [place] [address] Urea nitrogen [Mass/Vol] 7 mg/dL Normal 7 - 18 [facility] Comment on above: Performed By: #### 2 54087 ####[facility] [place],[address] [place] [address] [address] ABDOMEN/PELVIS Won 2024 CT ABDOMEN/PELVIS W Normal [facility] CT ABDOMEN/PELVIS W/O CONTRA STon 05-03-2025 CT ABDOMEN/PELVIS W/O CONTRAST Normal [facility] ED MED ADMINISTRATION DETAIL on 05-03-2025 ED MED ADMINISTRATION DETAIL Normal [facility] ED NURSES CLINICAL NOTEon ED NURSES CLINICAL NOTE Normal [facility] ED ORDER SHEET (CPOE ONLY)on 05-03-2025 ED ORDER SHEET (CPOE ONLY) Normal [facility] ED PHYSICIAN CLINICAL REPORT on 05-03-2025 ED PHYSICIAN CLINICAL REPORT Normal [facility] ED SUPER BILLon 05-03-2025 ED SUPER BILL Normal [facility] ED VISIT SUMMARYon ED VISIT SUMMARY Normal [facility] ED VITALS FLOW SHEETon 05-03 ED VITALS FLOW SHEET Normal [facility] LABORATORYOrdered By: Madyson Magallanes on 05-03-2025 Appearance (U) Cloudy *ABN* (05/03/25 10:09 AM) Invalid Interpretation Code Clear AH Auto Urine SS Bilirubin Ql (U) Negative (05/03/25 10:09 AM) Normal Neg-Trace Auto Urine SS Color (U) Yellow (05/03/25 10:09 AM) Normal AH Auto Urine SS Glucose Test strip (U) [Mass/Vol] Negative Normal Negative AH Auto Urine SS Hemoglobin Auto test strip (U) [Mass/Vol] Small *ABN* (05/03/25 10:09 AM) Invalid Interpretation Code Neg-Trace AH Auto Urine SS Ketones Ql (U) Negative Normal Neg-Trace AH Auto Urine SS UA Leuk Est Moderate *ABN* (05/03/25 10:09 AM) Invalid Interpretation Code Negative AH Auto Urine SS UA Nitrite Negative (05/03/25 10:09 AM) Normal Negative AH Auto Urine SS UA pH 8.5 *ABN* (05/03/25 10:09 AM) Invalid Interpretation Code 5.0 - 8.0 AH Auto Urine SS UA Protein 100 mg/dL Invalid Interpretation Code Negative AH Auto Urine SS UA Spec Grav >=1.030 *ABN* (05/03/25 10:09 AM) Invalid Interpretation Code 1.006-1.029 AH Auto Urine SS UA Specimen Type Not Given (05/03/25 10:09 AM) Normal AH Auto Urine SS UA Urobilinogen 0.2 E.U./dL Normal 0.2-1.0 AH Auto Urine SS LABORATORYOrdered By: Deshaun Fountain on 05-03-2025 Bacteria LM.HPF (Urine sed) [#/Area] 3 /[HPF] Invalid Interpretation Code Negative AH Auto Urine SS Crystals.amorphous LM.HPF (Urine sed) [#/Area] 2 /[HPF] Normal AH Auto Urine SS UA RBC 3-5 /HPF Invalid Interpretation Code 0-2 AH Auto Urine SS UA Squam Epithelial 0-2 /HPF Normal 0-20 AH Au to Urine SS WBC LM.HPF (Urine sed) [#/Area] 25-50 /HPF Invalid Interpretation Code 0-5 AH Auto Urine SS LABORATORYOrdered By: SYSTEM SYSTEM on 05-03-2025 Lactate [Moles/Vol] 0.7 mmol/L Normal 0.5 - 2. 2 mmol/L AH ADM SS Albumin BCP dye [Mass/Vol] 3.5 G/dL Normal 3.2 - 4.8 G/dL AH ADM SS Albumin/Globulin [Mass ratio] 1.5 {ratio} Normal 0.9 - 1.6 ratio AH ADM SS ALP [Catalytic activity/Vol] 62 U/L Normal 38 - 126 U/L AH ADM SS ALT No additional P-5'-P [Catalytic activity/Vol] 10 U/L Normal 10 - 49 U/L AH ADM SS AST [Catalytic activity/Vol] 22 U/L Normal 8 - 34 U/L AH ADM SS Basophils (Bld) [#/Vol] 0.0 103/mcL Normal 0.0 - 0.3 10^3/mcL AH Workflow SS Basophils/100 WBC (Bld) 0.5 % Normal 0.0 - 2.5 % AH Workflow SS Bilirubin [Mass/Vol] 0.20 mg/dL Normal 0.20 - 1.20 mg/dL AH ADM SS Comment on above: Interpretive Data: U se of this assay is not recommended for patients undergoing treatment with eltrombopag due to the potential for falsely elevated results. Calcium [Mass/Vol] 8.3 mg/dL Low 8.7 - 10. 4 mg/dL AH ADM SS Chloride [Moles/Vol] 111 mmol/L High 98 - 11 0 mEq/L AH ADM SS CO2 [Moles/Vol] 24 mmol/L Normal 22 - 32 mEq/L AH ADM SS Creatinine [Mass/Vol] 0.91 mg/dL Normal 0.50 - 1.20 mg/dL ADM SS Comment on above: Interpretive Data: T esting performed on Algisys analyzer using enzymatic creatinine methodology. Electrolyte Balance 4.0 mEq/L Normal 4.0 - 15 .0 mEq/L ADM SS Eosinophils (Bld) [#/Vol] 0.2 103/mcL Normal 0.0 - 0.7 10^3/mcL Workflow SS Eosinophils/100 WBC (Bld) 2.5 % Normal 0.0 - 6.0 % Workflow SS Erythrocyte distribution width (RBC) [Ratio] 15.1 % Normal 11.5 - 15.5 % Workflow SS Estimated Glomerular Filtration Rate 84 ml/min/1.73sqm Invalid Interpretation Code ADM SS Comment [...] factor to calculate the eGFR results. Globulin 2.4 G/dL Low 2.5 - 4.2 G/dL ADM SS Glucose [Mass/Vol] 85 mg/dL Normal 70 - 110 mg/dL ADM SS Hematocrit (Bld) [Volume fraction] 36.4 % Normal 34.0 - 46.0 % Workflow SS Hemoglobin (Bld) [Mass/Vol] 12.3 G/dL Normal 12.0 - 16.0 G/dL Workflow SS Lymphocytes (Bld) [#/Vol] 2.1 103/mcL Normal 0.9 - 4.3 10^3/mcL Workflow SS Lymphocytes/100 WBC (Bld) 23.8 % Normal 20.0 - 40.0 % Workflow SS MCH (RBC) [Entitic mass] 32.5 pg Normal 27.0 - 33.0 pg Workflow SS MCHC 33.9 G/dL Normal 32.0 - 36.0 G/dL AH Workflow SS MCV (RBC) [Entitic vol] 96.0 fL Normal 80.0 - 99.0 fL AH Workflow SS Monocyte distribution width Auto (Bld) [Entitic vol] 19.35 1 Normal 0.00 - 20.00 AH Workflow SS Comment on above: Result Comment: For ED adult patients suspected of sepsis, MDW<=20.0 does not rule out sepsis or risk of sepsis Monocytes (Bld) [#/Vol] 0.9 103/mcL Normal 0.1 - 1.4 10^3/mcL AH Workflow SS Monocytes/100 WBC (Bld) 10.3 % Normal 2.0 - 13.0 % AH Workflow SS Neutrophils (Bld) [#/Vol] 5.5 103/mcL Normal 2.3 - 8.1 10^3/mcL AH Workflow SS Neutrophils/100 WBC (Bld) 62.9 % Normal 50.0 - 75.0 % AH Workflow SS Platelet mean volume (Bld) [Entitic vol] 7.4 fL Normal 6.6 - 10.5 fL AH Workflow SS Platelets (Bld) [#/Vol] 314 103/mcL Normal 150 - 450 10^3/mcL AH Workflow SS Potassium [Moles/Vol] 5.0 mmol/L Normal 3.5 - 5.0 mEq/L AH ADM SS Comment on above: Result Comment: Spec imen slightly hemolyzed. Protein [Mass/Vol] 5.9 G/dL Normal 5.7 - 8.2 G/dL AH ADM SS RBC (Bld) [#/Vol] 3.79 106/mcL Low 4.10 - 5.3 0 10^6/mcL AH Workflow SS Sodium [Moles/Vol] 139 mmol/L Normal 136 - 145 mEq/L AH ADM SS Urea nitrogen [Mass/Vol] 8.0 mg/dL Normal 8.0 - 22.0 mg/dL AH ADM SS Urea nitrogen/Creatinine [Mass ratio] 8.8 ratio Low 10.0 - 22.0 ratio AH ADM SS WBC (Bld) [#/Vol] 8.7 103/mcL Normal 4.5 - 10.8 10^3/mcL AH Workflow SS LABORATORYOrdered By: Alicia Resendez on 05-03-2025 Appearance (U) Clear (05/03/25 6:12 AM) Normal Clear AH Auto Urine SS Bilirubin Ql (U) Negative (05/03/25 6:12 AM) Normal Neg-Trace AH Auto Urine SS Color (U) Yellow (05/03/25 6:12 AM) Normal AH Auto Urine SS Glucose Test strip (U) [Mass/Vol] Negative Normal Negative AH Auto Urine SS Hemoglobin Auto test strip (U) [Mass/Vol] Negative (05/03/25 6:12 AM) Normal Neg-Trace AH Auto Urine SS Ketones Ql (U) Negative Normal Neg-Trace AH Auto Urine SS UA Leuk Est Negative (05/03/25 6:12 AM) Normal Negative AH Auto Urine SS UA Nitrite Negative (05/03/25 6:12 AM) Normal Negative AH Auto Urine SS UA pH 6.5 (05/03/25 6:12 AM) Normal 5.0 - 8.0 AH Auto Urine SS UA Protein Trace mg/dL Normal Negative AH Auto Urine SS UA Spec Grav >=1.030 *ABN* (05/03/25 6:12 AM) Invalid Interpretation Code 1.006-1.029 AH Auto Urine SS UA Specimen Type Clean Catch (05/03/25 6:12 AM) Normal Auto Urine SS UA Urobilinogen 0.2 E.U./dL Normal 0.2-1.0 Auto Urine SS LACon 05-03-2025 Lactic Acid Lvl 0.7 mmol/L Normal 0.5-2.2 [facility] Comment on above: Performed By: #### C BC, LAC, ADIFF, MDW, GFR, ANEU, CMP ####[place] [address] LACTATEon 05-03-2025 Lactate [Moles/Vol] 0.6 mmol/L Normal 0.4 - 2.0 [facility] Comment on above: Performed By: #### 2 [id number] ####[facility],[address] [place] [address] LIPASEon 05-03-2025 Lipase [Catalytic activity/Vol] 104.0 U/L High 15.0 - 78.0 [facility] Comment on above: Result Comment: *PLE ASE NOTE THAT RANGES FOR LIPASE HAVE CHANGED OF 10/31/23 DUE TO AN ASSAYUPDATE BY THE HUMANITIES INSTRUCTOR.THE NEW ASSAY RANGE IS 6-250 U/L, WITH A REFERENCERANGE OF 16-77 U/L. Performed By: #### 2 [id number] ####[facility],[address] [place] [address] No Panel Informationon 05-03 Culture Urine Specimen received in lab. [facility] Work Phone: Microscopic examination of blood, culture Culture has been received in lab and is no growth to date. Routine cultures are held for 5 days. [facility] Work Phone: Microscopic examination of blood, culture Culture has been received in lab and is no growth to date. Routine cultures are held for 5 days. [facility] Work Phone: URINEon 05-03-2025 Beta HCG ( test) Ql (U) Negative Normal NEGATIVE [facility] Comment on above: Performed By: #### 2 [id number] ####[facility] [place],[address] [place] [address] EXTERNAL QC DONE? YES Normal [facility] Comment on above: Result Comment: Very dilute urine specimens, as indicated by a low specific gravity, may notcontain vendor representatives levels of hCG. If is still suspected, a firstmorning urine specimen should be collected 48 hours later and tested. Performed By: #### 2 09512 ####[place] [id number] INTERNAL QC PASS Normal [facility] Comment on above: Performed By: #### 2 12876 ####[facility],[address] [place] [address]67 UAon 05-03-2025 Color (U) Yellow Normal [facility] Comment on above: Order Comment: from nephrostomy tube Performed By: #### U A, UAMIC ####[facility] [place] [address] Glucose (U) [Mass/Vol] Negative Normal Negative [facility] Comment on above: Order Comment: from nephrostomy tube Performed By: #### U A, UAMIC ####[facility] [place] [address] Ketones Ql (U) Negative Normal Neg-Trace [facility] Comment on above: Order Comment: from nephrostomy tube Performed By: #### U A, UAMIC ####[facility] [place] [address] UA Appear Cloudy Abnormal Clear [facility] Comment on above: Order Comment: from nephrostomy tube Performed By: #### U A, UAMIC ####[facility] [place] [address] UA Blood Small Abnormal Neg-Trace [facility] Comment on above: Order Comment: from nephrostomy tube Performed By: #### U A, UAMIC ####[place] [address] UA Leuk Est Moderate Abnormal Negative [facility] Comment on above: Order Comment: from nephrostomy tube Performed By: #### U A, UAMIC ####[place] [address] UA Nitrite Negative Normal Negative [facility] Comment on above: Order Comment: from nephrostomy tube Performed By: #### U A, UAMIC ####[place] [address] UA pH 8.5 Abnormal 5.0 - 8.0 [facility] Comment on above: Order Comment: from nephrostomy tube Performed By: #### U A, UAMIC ####[place] [address] UA Protein 100 mg/dL Abnormal Negative [facility] Comment on above: Order Comment: from nephrostomy tube Performed By: #### U A, UAMIC ####[facility] [place] [address] UA Spec Grav >=1.030 Abnormal 1.006-1.029 [facility] Comment on above: Order Comment: from nephrostomy tube Performed By: #### U A, UAMIC ####[place] [address] UA Specimen Type Not Given Normal [facility] Comment on above: Order Comment: from nephrostomy tube Performed By: #### U A, UAMIC ####[facility] [place] [address] UA Urobilinogen 0.2 E.U./dL Normal 0.2-1.0 [facility] Comment on above: Order Comment: from nephrostomy tube Performed By: #### U A, UAMIC ####[place] [address] Urobilinogen (U) [Mass/Vol] Negative Normal Neg-Trace [facility] Comment on above: Order Comment: from nephrostomy tube Performed By: #### U A, UAMIC ####[place] [address] Color (U) Yellow Normal [facility] Comment on above: Performed By: #### U A ####[place] [address] Glucose (U) [Mass/Vol] Negative Normal Negative [facility] Comment on above: Performed By: #### U A ####[place] [address] Ketones Ql (U) Negative Normal Neg-Trace [facility] Comment on above: Performed By: #### U A ####[place] [address] UA Appear Clear Normal Clear [facility] Comment on above: Performed By: #### U A ####[place] [address] UA Blood Negative Normal Neg-Trace [facility] Comment on above: Performed By: #### U A ####[place] [address] UA Leuk Est Negative Normal Negative [facility] Comment on above: Performed By: #### U A ####[place] [id number] UA Nitrite Negative Normal Negative [facility] Comment on above: Performed By: #### U A ####[place] [address] UA pH 6.5 Normal 5.0 - 8.0 [facility] Comment on above: Performed By: #### U A ####[place] [address] UA Protein Trace Normal Negative [facility] Comment on above: Performed By: #### U A ####[place] [address] UA Spec Grav >=1.030 Abnormal 1.006-1.029 [facility] Comment on above: Performed By: #### U A ####[place] [address] UA Specimen Type Clean Catch Normal [facility] Comment on above: Performed By: #### U A ####[place] [address] UA Urobilinogen 0.2 E.U./dL Normal 0.2-1.0 [facility] Comment on above: Performed By: #### U A ####[place] [address] Urobilinogen (U) [Mass/Vol] Negative Normal Neg-Trace [facility] Comment on above: Performed By: #### U A ####[place] [address] UAMICon 05-03-2025 UA Amorphus 2+ /hpf Normal [facility] Comment on above: Performed By: #### U A, UAMIC ####[place] [address] UA Bacteria 3+ /hpf Abnormal Negative [facility] Comment on above: Performed By: #### U A, UAMIC ####[place] [address] UA RBC 3-5 Abnormal 0-2 [facility] Comment on above: Performed By: #### U A, UAMIC ####[place] [address] UA Squam Epithelial 0-2 Normal 0-20 [facility] Comment on above: Performed By: #### U A, UAMIC ####[place] [address] UA WBC 25-50 Abnormal 0-5 [facility] Comment on above: Performed By: #### U A, UAMIC ####[facility] [place] [address] URINALYSISon 05-03-2025 Amorphous 2+ Normal [facility] Comment on above: Performed By: #### 2 65002 ####[facility] [place],[address] [place] [address] Bacteria 2+ Normal [facility] Comment on above: Performed By: #### 2 55438 ####[facility] [place],[address] [place] [address] Bilirubin Ql (U) Negative Normal NORMAL: NEGATIVE [facility] Comment on above: Performed By: #### 2 85140 ####[facility] [place],[address] [place] [address] Casts NONE Normal [facility] Comment on above: Performed By: #### 2 14152 ####[facility] [place],[address] [place] [address] Clarity (U) SL. CLOUDY Abnormal NORMAL: CLEAR [facility] Comment on above: Performed By: #### 2 00472 ####[facility] [place],[address] [place] [address]346 Color (U) YELLOW Normal NORMAL: YELLOW [facility] Comment on above: Performed By: #### 2 39501 ####[facility] [place],[address] [place] [address] 18331 Crystals LM Nom (Urine sed) NONE Normal [facility] Comment on above: Performed By: #### 2 99374 ####[facility] [place],[address] [place] [address] 07197 Epi Cells NONE Normal [facility] Comment on above: Performed By: #### 2 02058 ####[facility] [place],[address] [place] [address] Glucose Ql (U) NORM Normal NORMAL: NORMAL [facility] Comment on above: Performed By: #### 2 78887 ####[facility] [place],[address] [place] [address]715 Hemoglobin Ql (U) 150 Abnormal NORMAL: NEGATIVE [facility] Comment on above: Performed By: #### 2 29523 ####[facility] [place],[address] [place] [address]38 Ketone Negative Normal NORMAL: NEGATIVE [facility] Comment on above: Performed By: #### 2 81415 ####[facility],[address] [place] [address]2559 Leukocytes 500 Abnormal NORMAL: NEGATIVE [facility] Comment on above: Performed By: #### 2 65383 ####[facility] [place],[address] [place] [address] 78581 Mucous NONE Normal [facility] Comment on above: Performed By: #### 2 32068 ####[facility] [place],[address] [place] [address] 11532 Nitrite Ql (U) Negative Normal NORMAL: NEGATIVE [facility] Comment on above: Performed By: #### 2 15741 ####[facility] [place],[address] [place] [address]90 pH (U) 7.0 [pH] Normal NORMAL: 5.0-8.0 [facility] Comment on above: Performed By: #### 2 01946 ####[facility],[address] [place] [address]39 Protein Ql (U) 30 Abnormal NORMAL: NEGATIVE [facility] Comment on above: Performed By: #### 2 81586 ####[facility] [place],[address] [place] [address] 76926 Rbc 0-5 Normal 0-3/hpf [facility] Comment on above: Performed By: #### 2 69070 ####[facility] [place],[address] [place] [address]683 Sp [place] 1.005 Low NORMAL: 1.010-1.030 [facility] Comment on above: Performed By: #### 2 40251 ####[facility] [place],[address] [place] [address] Specimen Type R Normal [facility] Comment on above: Result Comment: NEPH ROSTOMY Performed By: #### 2 02498 ####[facility] [place],[address] [place], [place] [id number] Urinalysis dipstick W Reflex Microscopic panel (U) SEE BELOW Normal [facility] [place] Comment on above: Result Comment: MICR OSCOPIC Performed By: #### 2 25553 ####[facility] [place],[address] [place] [address] Urobilinog NORMAL Normal NORMAL: NORMAL [facility] Comment on above: Performed By: #### 2 70987 ####[facility] [place],[address] [place] [address] Wbc 6-10 Normal 0-5/hpf [facility] Comment on above: Performed By: #### 2 01403 ####[facility] [place],[address] [place] [address] Yeast NONE Normal [facility] Comment on above: Performed By: #### 2 59367 ####[facility] [place],[address] [place] [address] 81171 Bilirubin Ql (U) Negative Normal NORMAL: NEGATIVE [facility] Comment on above: Performed By: #### 2 49616 ####[facility] [place],[address] [place], [place] [id number] Clarity (U) CLEAR Normal NORMAL: CLEAR [facility] Comment on above: Performed By: #### 2 86743 ####[facility],[address] [place] [address]497 Color (U) YELLOW Normal NORMAL: YELLOW [facility] Comment on above: Performed By: #### 2 95796 ####[facility],[address] [place] [address] Glucose Ql (U) NORM Normal NORMAL: NORMAL [facility] Comment on above: Performed By: #### 2 77113 ####[facility],[address] [place] [address] 76026 Hemoglobin Ql (U) Negative Normal NORMAL: NEGATIVE [facility] Comment on above: Performed By: #### 2 90475 ####[facility] [place],[address] [place] [address] 46061 Ketone Negative Normal NORMAL: NEGATIVE [facility] Comment on above: Performed By: #### 2 53819 ####[facility] [place],[address] [place] [address] 86280 Leukocytes Negative Normal NORMAL: NEGATIVE [facility] Comment on above: Performed By: #### 2 64681 ####[facility] [place],[address] [place], [place] [phone] Nitrite Ql (U) Negative Normal NORMAL: NEGATIVE [facility] Comment on above: Performed By: #### 2 71531 ####[facility] [place],[address] [place] [address] pH (U) 6.0 [pH] Normal NORMAL: 5.0-8.0 [facility] Comment on above: Performed By: #### 2 50652 ####[facility] [place],[address] [place], [place] [phone] Protein Ql (U) Negative Normal NORMAL: NEGATIVE [facility] Comment on above: Performed By: #### 2 71285 ####[facility] [place],[address] [place], [place] [phone] Sp [place] 1.010 Normal NORMAL: 1.010-1.030 [facility] [place] Comment on above: Performed By: #### 2 87555 ####[facility] [place],[address] [place], [place] [phone] Specimen Type R Normal [facility] Comment on above: Result Comment: BLAD JULITO Performed By: #### 2 82432 ####[facility] [place],[address] [place], [place] [phone] Urinalysis dipstick W Reflex Microscopic panel (U) NOT INDICATED Normal [facility] Comment on above: Performed By: #### 2 22620 ####[facility] [place],[address] [place] [address] Urobilinog NORMAL Normal NORMAL: NORMAL [facility] Comment on above: Performed By: #### 2 03190 ####[facility] [place],[address] [place] [address] ED MED ADMINISTRATION DETAIL on 04-30-2025 ED MED ADMINISTRATION DETAIL Normal [facility] ED NURSES CLINICAL NOTEon ED NURSES CLINICAL NOTE Normal [facility] ED ORDER SHEET (CPOE ONLY)on 04-30-2025 ED ORDER SHEET (CPOE ONLY) Normal [facility] ED SUPER BILLon 04-30-2025 ED SUPER BILL Normal [facility] ED VISIT SUMMARYon ED VISIT SUMMARY Normal [facility] ED VITALS FLOW SHEETon 04-30 ED VITALS FLOW SHEET Normal [facility] Absolute lymphocyte countOrd ered By: Jatin Garcia on 04-09-2025 Lymphocytes Auto (Unsp spec) [#/Vol] 2.78 10*3/uL 0.83-4.51 [facility] Absolute neutrophil countOrd ered By: Jatin Garcia on 04-09-2025 Neutrophils (Bld) [#/Vol] 4.7 10*3/uL 2.0-7.7 [facility] Anion gap in Serum or Plasma Ordered By: Jatin Garcia on 04-09-2025 Anion gap [Moles/Vol] 14 mmol/L 5-15 [facility] Automated lymphocyte count a s percentage of total leukocytesOrdered By: Jatin Garcia on 04-09-2025 Lymphocytes/100 WBC Auto (Unsp spec) 32.0 % - [facility] BUN/creatinine ratioOrdered By: Jatin Garcia on 04-09-2025 Urea nitrogen/Creatinine [Mass ratio] 9.0 mg/mg Low 10- [facility] Basic Metabolic Profile (BMP )on 04-09-2025 BUN/CRE 9.0 RATIO Low - [facility] Comment on above: Performed By: #### L 100.0100, L500.2500 #### [facility] [address] [place], [address] Calcium [Mass/Vol] 9.1 mg/dL Normal 7.6-11.0 [facility] Comment on above: Performed By: #### L 100.0100, L500.2500 #### [facility] [address] [place], [address] Chloride [Moles/Vol] 106 mmol/L Normal 98-108 [facility] Comment on above: Performed By: #### L 100.0100, L500.2500 #### [facility] [address] [place], [address] CO2 [Moles/Vol] 19.8 mmol/L Low 21.0-32.0 [facility] Comment on above: Performed By: #### L 100.0100, L500.2500 #### [facility] [address] [place], [address] Creatinine [Mass/Vol] 0.96 mg/dL Normal 0.70-1.20 [facility] Comment on above: Performed By: #### L 100.0100, L500.2500 #### [facility] [address] [place], [address] ECRCL 72.90 ml/min Normal 50-250 [facility] Comment on above: Performed By: #### L 100.0100, L500.2500 #### [facility] [address] [place], [address] GAP 14 Normal 5-15 [facility] Comment on above: Performed By: #### L 100.0100, L500.2500 #### [facility] [address] [place], [address] GFR/1.73 sq M.predicted among non-blacks MDRD (S/P/Bld) [Vol rate/Area] 79 mL/min/{1.73_m2} Normal >60 [facility] Comment on above: Result Comment: mL/m in/1.73m2 CKD-EPI Creatinine Equation (2020) Performed By: #### L 100.0100, L500.2500 #### [facility] [address] [place], [address] Glucose [Mass/Vol] 120 mg/dL High 70-99 [facility] Comment on above: Performed By: #### L 100.0100, L500.2500 #### [facility] [address] [place], [address] Potassium [Moles/Vol] 3.4 mmol/L Normal 3.3-5.1 [facility] Comment on above: Performed By: #### L 100.0100, L500.2500 #### [facility] [address] [place], [address] Sodium [Moles/Vol] 140 mmol/L Normal 133-145 [facility] Comment on above: Performed By: #### L 100.0100, L500.2500 #### [facility] [address] [place], [address] Urea nitrogen [Mass/Vol] 9 mg/dL Normal 4-19 [facility] Comment on above: Performed By: #### L 100.0100, L500.2500 #### [facility] [address] [place], [address] Basophil percentageOrdered B y: Jatin Garcia on 04-09-2025 Basophils/100 WBC (Bld) 1.0 % 0-1 [facility] Bilirubin Test strip Ql (U)O rdered By: Jatin Garcia on 04-09-2025 Bilirubin Ql (U) Negative Negative [facility] CBC W/Diff, Automatedon Absolute Lymph 2.78 X10 3/uL Normal 0.83-4.51 [facility] Comment on above: Performed By: #### L 100.0100, L500.2500 #### [facility] [address] [place], [address] Absolute Neut 4.7 X10 3/uL Normal 2.0-7.7 [facility] Comment on above: Performed By: #### L 100.0100, L500.2500 #### [facility] [address] [place], [address] Basophils/100 WBC (Bld) 1.0 % Normal 0-1 [facility] Comment on above: Performed By: #### L 100.0100, L500.2500 #### [facility] [address] [place], [address] Eosinophils/100 WBC (Bld) 3.2 % Normal 0-5 [facility] Comment on above: Performed By: #### L 100.0100, L500.2500 #### [facility] [address] [place], [address] Erythrocyte distribution width (RBC) [Ratio] 14.6 % Normal 11.6-14.6 [facility] Comment on above: Performed By: #### L 100.0100, L500.2500 #### [facility] [address] [place], [address] Hematocrit (Bld) [Volume fraction] 36.4 % Low 37-47 [facility] Comment on above: Performed By: #### L 100.0100, L500.2500 #### [facility] [address] [place], [address] Hemoglobin (Bld) [Mass/Vol] 12.3 g/dL Normal 12.0-15.0 [facility] Comment on above: Performed By: #### L 100.0100, L500.2500 #### [facility] [address] [place], [address] IG% 0.300 Normal 0.0-0.9 [facility] Comment on above: Result Comment: IG% - Immature Granulocytes (promyelocytes, myelocytes and metamyelocytes) > 1% indicates that a LEFT SHIFT is Present. Performed By: #### L 100.0100, L500.2500 #### [facility] [address] [place], [address] Lymphocytes/100 WBC (Bld) 32.0 % Normal 19-41 [facility] Comment on above: Performed By: #### L 100.0100, L500.2500 #### [facility] [address] [place], [address] MCH (RBC) [Entitic mass] 32.3 pg High 27.0-32.0 [facility] Comment on above: Performed By: #### L 100.0100, L500.2500 #### [facility] [address] [place], [address] MCHC (RBC) [Mass/Vol] 33.8 g/dL Normal 32-36 [facility] Comment on above: Performed By: #### L 100.0100, L500.2500 #### [facility] [address] [place], [address] MCV (RBC) [Entitic vol] 95.5 fL Normal 81-99 [facility] Comment on above: Performed By: #### L 100.0100, L500.2500 #### [facility] [address] [place], [address] Monocytes/100 WBC (Bld) 8.9 % Normal 0-10 [facility] Comment on above: Performed By: #### L 100.0100, L500.2500 #### [facility] [address] [place], [address] Neutrophils/100 WBC (Bld) 54.6 % Normal 47-70 [facility] Comment on above: Performed By: #### L 100.0100, L500.2500 #### [facility] [address] [place], [address] Nucleated RBC (Bld) [#/Vol] 0 10*3/uL Normal 0-5 [facility] Comment on above: Performed By: #### L 100.0100, L500.2500 #### [facility] [address] [place], [address] Platelet mean volume (Bld) [Entitic vol] 9.4 fL Normal 6.2-12.0 [facility] Comment on above: Performed By: #### L 100.0100, L500.2500 #### [facility] [address] [place], [address] Platelets (Bld) [#/Vol] 297 10*3/uL Normal 150-450 [facility] Comment on above: Performed By: #### L 100.0100, L500.2500 #### [facility] [address] [place], [address] RBC (Bld) [#/Vol] 3.81 10*6/uL Low 4.2-5.4 [facility] Comment on above: Performed By: #### L 100.0100, L500.2500 #### [facility] [address] [place], [address] RDW SD 51.2 fl High 35.1-43.9 [facility] Comment on above: Performed By: #### L 100.0100, L500.2500 #### [facility] [address] [place], [address] WBC (Bld) [#/Vol] 8.7 10*3/uL Normal 4.4-11.0 [facility] Comment on above: Performed By: #### L 100.0100, L500.2500 #### [facility] [address] [place], [address] Carbon dioxide, total [Moles /volume] in Central venous bloodOrdered By: Jatin Garcia on 04-09-2025 CO2 [Moles/Vol] 19.8 mmol/L Low 21.0-32.0 [facility] Chloride assayOrdered By: Sammy Garcia on 04-09-2025 Chloride [Moles/Vol] 106 mmol/L 98-108 [facility] Emergency Department Summary on 04-09-2025 Emergency Department Summary [facility] Medical Records Department [address] [place] [address] Emergency Department Summary 04/09/25 MR#: [id number] Acct: [id number] Name: LALY NAVAS Rep #: [id number] : 1990 34 From: Jatin Garcia MD PCP: [facility] Status:REG ER Location: ED HPI History of Present Illness Chief Complaint: Flank Pain Informant: patient Narrative Narrative: 34-year-old female states she is having pain in her left flank, less on her back more in her side in her left lower quadrant, that she has been having for the past 2 weeks consistent with a kidney stone that has been known and followed, and she is here for pain control. She is in pain management, taking oxycodone twice a day which she has been doing but the pain is [id number] and she is feeling very nauseated and does not want to waste her pain management prescription by vomiting it up. She denies any fevers or chills. No dysuria or hematuria. She has been on antibiotics for several weeks, currently on Bactrim, and states that she was admitted to [place] where her oncologist and urologist are, she was there yesterday and then discharged today because she states her urologist who had admitted her, decided to drop her as a patient. The patient states this was because she missed a renal scan that she was unaware of. She states that the urologist was preparing to remove the kidney stone because of pain reasons. 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 She has known about those issues for years. [facility] [facility] Medical History Nephrostomy present Kidney failure Kidney stone Cervical cancer Home Medications ???Medication ???Instructions ???Recorded ???Last Taken ???Type escitalopram oxalate 20 mg tablet 20 mg PO DAILY 04/09/25 Unknown H istory (Lexapro) lorazepam 1 mg tablet (Ativan) 1 mg PO Q8H PRN anxiety 04/09/25 U nknown History ondansetron HCl 4 mg tablet 4 mg PO Q6H PRN nausea and vomitin g 04/09/25 Unknown History oxycodone 5 mg tablet 10 mg PO Q6H PRN pain 04/09/25 Unk nown History sulfamethoxazole 800 1 tab PO BID 04/09/25 Unknown Hist ory mg-trimethoprim 160 mg tablet (Bactrim DS) Allergy/AdvReac Type Severity Reaction Status Date / Time haloperidol (From Haldol) Allergy Angioedema Verified 04/09/25 00:21 Penicillins (PCN) Allergy Hives Verified 04/09/25 00:21 Social History Smoking Status: Current every day smoker tobacco type: cigarettes and e-cigarettes ROS ROS ED Constitutional Constitutional ED: Denies chills or fever(s) Eyes Eyes: Denies change in vision or diplopia ENT ENT ED: Denies rhinorrhea or sore throat Cardiovascular Cardiovascular: Denies chest pain or palpitations Respiratory/Chest Respiratory/Chest: Denies cough or dyspnea Gastrointestinal Gastrointestinal: Reports abdominal pain; Denies diarrhea, nausea or vomiting Genitourinary Genitourinary ED: Reports flank pain; Denies dysuria or hematuria Musculoskeletal Musculoskeletal: Denies back pain or neck pain Integumentary Denies abscess or rash Neurologic Neurologic: Denies headache(s), paresthesias or weakness Psychiatric Psychiatric: Denies anxiety or suicidal thoughts EXAM Physical Exam Const Vital Signs: 04/09/25 00:20 04/09/25 01:20 04/09/25 02:00 Temperature 98.6 F Temperature Source Oral Pulse Rate 103 H 89 69 Respiratory Rate 18 16 16 Blood Pressure 115/79 118/71 107/77 Blood Pressure Mean 91 86 87 Pulse Ox 99 98 99 Oxygen Delivery Method Room Air Room Air Positive well nourished and well developed Constitutional Narrative: Very well-appearing in no distress, ambulatory without limitation General Appearance ED: well developed and NAD HEENT Reports moist mucous membranes normocephalic and atraumatic Eyes PERRL and EOMs intact bilaterally Neck full ROM and supple Resp normal respiratory effort and clear to auscultation bilaterally Cardio regular rate, regular rhythm and no murmurs GI non-distended GI Narrative: Tender left lower quadrant no guarding or rebound. Auscultation: normoactive bowel sounds Palpation: soft Back/Spine no CVA tenderness Back/Spine Narrative: Left nephrostomy in place, no active discharge or signs of infection or tenderness. General Back: other FROM Extremity normal to inspection General Extremety ED: Negative for edema, pulses abnormal or tenderness General Extremity: Negative for edema or pulses abnormal Neuro oriented x3, CN's II-XII intact bilaterally and no sensory deficits noted Sensorium / Orientation: awake and alert Motor Exam: strength 5/5 throughout Psych (more content not included)... Normal [facility] Eosinophil percentageOrdered By: Jatin Garcia on 04-09-2025 Eosinophils/100 WBC (Bld) 3.2 % 0-5 [facility] Erythrocyte distribution wid th ratioOrdered By: Jatin Garcia on 04-09-2025 Erythrocyte distribution width (RBC) [Ratio] 14.6 % 11.6-14.6 [facility] Erythrocyte distribution wid th standard deviationOrdered By: Jatin Garcia on 04-09-2025 Erythrocyte distribution width (RBC) [Ratio] 51.2 fl High 35.1-43.9 [facility] Glomerular filtration rate ( GFR) estimation/1.73 sq m using serum, plasma, or whole bOrdered By: Jatin Garcia on 04-09-2025 GFR/1.73 sq M.predicted among non-blacks MDRD (S/P/Bld) [Vol rate/Area] 79 mL/min/{1.73_m2} >60 [facility] Comment on above: mL/min/1.73m2 CKD-EP I Creatinine Equation (2020) Hematocrit Auto (Bld) [Volum e fraction]Ordered By: Jatin Garcia on 04-09-2025 Hematocrit (Bld) [Volume fraction] 36.4 % Low 37-47 [facility] Hemoglobin measurementOrdere d By: Jatin Garcia on 04-09-2025 Hemoglobin (Bld) [Mass/Vol] 12.3 g/dL 12.0-15.0 [facility] Immature granulocytes/100 WB C Auto (Bld)Ordered By: Jatin Garcia on 04-09-2025 Immature granulocytes/100 WBC (Bld) 0.300 % 0.0-0.9 [facility] Comment on above: IG% - Immature Granu locytes (promyelocytes, myelocytes and metamyelocytes) > 1% indicates that a LEFT SHIFT is Present. Ketones Test strip Ql (U)Ord ered By: Jatin Garcia on 04-09-2025 Ketones Ql (U) Negative Negative [facility] MCV (mean corpuscular volume ) determinationOrdered By: Jatin Garcia on 04-09-2025 MCV (RBC) [Entitic vol] 95.5 fL 81-99 [facility] Mean corpuscular hemoglobin (MCH) determinationOrdered By: Jatin Garcia on 04-09-2025 MCH (RBC) [Entitic mass] 32.3 pg High 27.0-32.0 [facility] Mean corpuscular hemoglobin concentration (MCHC) determinationOrdered By: Jatin Garcia on 04-09-2025 MCHC (RBC) [Mass/Vol] 33.8 g/dL 32-36 [facility] Mean platelet volume determi nationOrdered By: Jatin Garcia on 04-09-2025 Platelet mean volume (Bld) [Entitic vol] 9.4 fL 6.2-12.0 [facility] Microscopic analysis of urin e for red blood cells (RBC)Ordered By: Jatin Garcia on 04-09-2025 Microscopic analysis of urine for red blood cells (RBC) 0 SEEN /hpf 0-5 [facility] Monocyte percentageOrdered B y: Jatin Garcia on 04-09-2025 Monocytes/100 WBC (Bld) 8.9 % 0-10 [facility] Mucus LM Ql (Urine sed)Order ed By: Jatin Garcia on 04-09-2025 Mucus Ql (Urine sed) 0 SEEN /hpf [facility] Neutrophil percentageOrdered By: Jatin Garcia on 06-07-2025 Neutrophils/100 WBC (Bld) 54.6 % 47-70 [facility] Nitrite Test strip Ql (U)Ord ered By: Jatin Garcia on 04-09-2025 Nitrite Ql (U) Negative Negative [facility] Nucleated red blood cell per centageOrdered By: Jatin Garcia on 04-09-2025 Nucleated RBC/100 WBC (Bld) [Ratio] 0 % 0-5 [facility] Platelet countOrdered By: Sammy Garcia on 04-09-2025 Platelets (Bld) [#/Vol] 297 10*3/uL 150-450 [facility] Potassium measurement (mass/ volume)Ordered By: Jatin Garcia on 04-09-2025 Potassium (Unsp spec) [Mass/Vol] 3.4 mmol/L 3.3-5.1 [facility] Protein Test strip Ql (U)Ord ered By: Jatin Garcia on 04-09-2025 Protein Ql (U) Negative Negative [facility] RBC Auto (Bld) [#/Vol]Ordere d By: Jatin Garcia on 04-09-2025 RBC (Bld) [#/Vol] 3.81 10*6/uL Low 4.2-5.4 [facility] Serum creatinine measurement (mass/volume)Ordered By: Jatin Garcia on 04-09-2025 Creatinine [Mass/Vol] 0.96 mg/dL 0.70-1.20 [facility] Serum glucose measurement (m ass/volume)Ordered By: Jatin Garcia on 04-09-2025 Glucose [Mass/Vol] 120 mg/dL High 70-99 [facility] Serum or plasma calcium zach urement (mass/volume)Ordered By: Jatin Garcia on 04-09-2025 Calcium [Mass/Vol] 9.1 mg/dL 7.6-11.0 [facility] Serum or plasma urea nitroge n measurement (mass/volume)Ordered By: Jatin Garcia on 04-09-2025 Urea nitrogen [Mass/Vol] 9 mg/dL 4-19 [facility] Sodium levelOrdered By: Gilbert Garcia on 04-09-2025 Sodium [Moles/Vol] 140 mmol/L 133-145 [facility] Squamous epithelial cells de tection in urine sediment by light microscopyOrdered By: Jatin Garcia on 04-09-2025 Epithelial cells.squamous LM Ql (Urine sed) 0-5 SEEN /hpf 5-10 [facility] Urinalysis, Completeon 04-09 EPI,SQUAMOUS 0-5 SEEN Normal 5-10 [facility] Comment on above: Order Comment: YOSELIN CTOR TO SPECIFY Performed By: #### L [id number] #### [facility] [address] [place], [address] WBC 0-5 SEEN Normal 0-5 [facility] Comment on above: Order Comment: YOSELIN CTOR TO SPECIFY Performed By: #### L [id number] #### [facility] [address] [place], [address] BACTERIA 0 SEEN Normal None Seen [facility] Comment on above: Order Comment: YOSELIN CTOR TO SPECIFY Performed By: #### L [id number] #### [facility] [address] [place], [address] Mucus Ql (Urine sed) 0 SEEN Normal [facility] Comment on above: Order Comment: YOSELIN CTOR TO SPECIFY Performed By: #### L [id number] #### [facility] [address] [place], [address] RBC 0 SEEN Normal 0-5 [facility] Comment on above: Order Comment: YOSELIN CTOR TO SPECIFY Performed By: #### L [id number] #### [facility] [address] [place], [address] Urine clarityOrdered By: Angel Garcia on 04-09-2025 Clarity (U) Clear Clear [facility] Urine color determinationOrd ered By: Jatin Garcia on 04-09-2025 Color (U) Straw Yellow [facility] Urine glucose detectionOrder ed By: Jatin Garcia on 04-09-2025 Glucose Ql (U) Normal mg/dl Normal [facility] Urine leukocyte esterase det ection by dipstickOrdered By: Jatin Garcia on 04-09-2025 Leukocyte esterase Test strip Ql (U) Negative Negative [facility] Urine pHOrdered By: Jatin Garcia on 04-09-2025 pH (U) 6.0 [pH] 5.0 - 8.0 [facility] Urine sediment bacteria coun t by microscopy (number/high power field)Ordered By: Jatin Garcia on 04-09-2025 Bacteria LM.HPF (Urine sed) [#/Area] 0 /[HPF] None Seen [facility] Urine specific gravity measu rementOrdered By: Jatin Garcia on 04-09-2025 Specific gravity (U) [Rel density] 1.010 1.002-1.030 [facility] Urine urobilinogen measureme ntOrdered By: Jatin Garcia on 04-09-2025 Urobilinogen Ql (U) Normal mg/dl Normal [facility] White blood cell (WBC) count Ordered By: Jatin Garcia on 04-09-2025 WBC (Bld) [#/Vol] 8.7 10*3/uL 4.4-11.0 [facility] White blood cell countOrdere d By: Jatin Garcia on 04-09-2025 White blood cell count 0-5 SEEN /hpf 0-5 [facility] .Auto Diffon 04-07-2025 Basophil, Absolute 0.1 10 3/mcL Normal 0.0-0.3 [facility] Comment on above: Performed By: #### G FR, LAC, ADIFF, ANEU, BMP, CBC, MG ####[address] [address] Basophils/100 WBC (Bld) 1.1 % Normal 0.0-2.5 [facility] Comment on above: Performed By: #### G FR, LAC, ADIFF, ANEU, BMP, CBC, MG ####[place] [id number] [place] [address] Eosinophil, Absolute 0.2 10 3/mcL Normal 0.0-0.7 [facility] Comment on above: Performed By: #### G FR, LAC, ADIFF, ANEU, BMP, CBC, MG ####[address] [address] Eosinophils/100 WBC (Bld) 3.8 % Normal 0.0-6.0 [facility] Comment on above: Performed By: #### G FR, LAC, ADIFF, ANEU, BMP, CBC, MG ####[address] [address] Lymphocyte, Absolute 2.1 10 3/mcL Normal 0.9-4.3 [facility] Comment on above: Performed By: #### G FR, LAC, ADIFF, ANEU, BMP, CBC, MG ####[address] [address] Lymphocytes/100 WBC (Bld) 32.4 % Normal 20.0-40.0 [facility] Comment on above: Performed By: #### G FR, LAC, ADIFF, ANEU, BMP, CBC, MG ####[address] [address] Monocyte, Absolute 0.6 10 3/mcL Normal 0.1-1.4 [facility] Comment on above: Performed By: #### G FR, LAC, ADIFF, ANEU, BMP, CBC, MG ####[address] [address] Monocytes/100 WBC (Bld) 8.9 % Normal 2.0-13.0 [facility] Comment on above: Performed By: #### G FR, LAC, ADIFF, ANEU, BMP, CBC, MG ####[address] [address] Neutrophils/100 WBC (Bld) 53.8 % Normal 50.0-75.0 [facility] Comment on above: Performed By: #### G FR, LAC, ADIFF, ANEU, BMP, CBC, MG ####[address] [address] .GFRon 04-07-2025 Estimated Glomerular Filtration Rate 87 ml/min/1.73sqm Normal [facility] Comment on above: Result Comment: Stag es of Chronic Kidney Disease (CKD)Stage Description eGFR(ml/min/1.73 sq.m.)CKD 1 Normal kidney function or >=90 normal kindney function with possible kidney damage (ex. Proteinuria)CKD 2 Kidney damage with mild loss 60-89 of kidney functionCKD 3a Mild to moderate loss of kidney 45-59 functionCKD 3b Moderate to severe loss of 30-44 of kindey function CKD 4 Severe loss of kidney function 15-29CKD 5 Kidney failure <15Note: (go live 2024) the eGFR calculation was updated to the KD-EPI creatinine equation without a race factor to calculate theeGFR results. Performed By: #### G FR, LAC, ADIFF, ANEU, BMP, CBC, MG ####[address] [address] .NEUABSon 04-07-2025 Neutrophil, Absolute 3.5 10 3/mcL Normal 2.3-8.1 [facility] Comment on above: Performed By: #### G FR, LAC, ADIFF, ANEU, BMP, CBC, MG ####[address] [address] BMPon 04-07-2025 BUN/Creatinine Ratio 10.2 ratio Normal 10.0-22.0 [facility] Comment on above: Performed By: #### G FR, LAC, ADIFF, ANEU, BMP, CBC, MG ####[address] [address] Calcium [Mass/Vol] 9.4 mg/dL Normal 8.7-10.4 [facility] Comment on above: Performed By: #### G FR, LAC, ADIFF, ANEU, BMP, CBC, MG ####[address] [address] Chloride [Moles/Vol] 110 mmol/L Normal 98-110 [facility] Comment on above: Performed By: #### G FR, LAC, ADIFF, ANEU, BMP, CBC, MG ####[address] [address] CO2 [Moles/Vol] 27 mmol/L Normal 22-32 [facility] Comment on above: Performed By: #### G FR, LAC, ADIFF, ANEU, BMP, CBC, MG ####[address] [address] Creatinine [Mass/Vol] 0.88 mg/dL Normal 0.50-1.20 [facility] Comment on above: Result Comment: Test ing performed on Algisys analyzer using enzymatic creatinine methodology. Performed By: #### G FR, LAC, ADIFF, ANEU, BMP, CBC, MG ####[place] [address] Electrolyte Balance 6.0 mEq/L Normal 4.0-15.0 [facility] Comment on above: Performed By: #### G FR, LAC, ADIFF, ANEU, BMP, CBC, MG ####[place] [address] Glucose [Mass/Vol] 101 mg/dL Normal 70-110 [facility] Comment on above: Performed By: #### G FR, LAC, ADIFF, ANEU, BMP, CBC, MG ####[place] [address] Potassium [Moles/Vol] 3.6 mmol/L Normal 3.5-5.0 [facility] Comment on above: Performed By: #### G FR, LAC, ADIFF, ANEU, BMP, CBC, MG ####[place] [address] Sodium [Moles/Vol] 143 mmol/L Normal 136-145 [facility] Comment on above: Performed By: #### G FR, LAC, ADIFF, ANEU, BMP, CBC, MG ####[place] [address] Urea nitrogen [Mass/Vol] 9.0 mg/dL Normal 8.0-22.0 [facility] Comment on above: Performed By: #### G FR, LAC, ADIFF, ANEU, BMP, CBC, MG ####[place] [address] CBCon 04-07-2025 Erythrocyte distribution width (RBC) [Ratio] 15.2 % Normal 11.5-15.5 [facility] Comment on above: Performed By: #### G FR, LAC, ADIFF, ANEU, BMP, CBC, MG ####[address] [place] [address] Hematocrit (Bld) [Volume fraction] 38.2 % Normal 34.0-46.0 [facility] Comment on above: Performed By: #### G FR, LAC, ADIFF, ANEU, BMP, CBC, MG ####[address] [address] Hgb 13.2 G/dL Normal 12.0-16.0 [facility] Comment on above: Performed By: #### G FR, LAC, ADIFF, ANEU, BMP, CBC, MG ####[place] [address] MCH (RBC) [Entitic mass] 33.2 pg High 27.0-33.0 [facility] Comment on above: Performed By: #### G FR, LAC, ADIFF, ANEU, BMP, CBC, MG ####[place] [address] MCHC 34.6 G/dL Normal 32.0-36.0 [facility] Comment on above: Performed By: #### G FR, LAC, ADIFF, ANEU, BMP, CBC, MG ####[place] [address] MCV (RBC) [Entitic vol] 95.8 fL Normal 80.0-99.0 [facility] Comment on above: Performed By: #### G FR, LAC, ADIFF, ANEU, BMP, CBC, MG ####[place] [address] Platelet 335 10 3/mcL Normal 150-450 [facility] Comment on above: Performed By: #### G FR, LAC, ADIFF, ANEU, BMP, CBC, MG ####[place] [address] Platelet mean volume (Bld) [Entitic vol] 7.4 fL Normal 6.6-10.5 [facility] Comment on above: Performed By: #### G FR, LAC, ADIFF, ANEU, BMP, CBC, MG ####[place] [address] RBC 3.99 10 6/mcL Low 4.10-5.30 [facility] Comment on above: Performed By: #### G FR, LAC, ADIFF, ANEU, BMP, CBC, MG ####[facility] [place] [address] WBC 6.4 10 3/mcL Normal 4.5-10.8 [facility] Comment on above: Performed By: #### G FR, LAC, ADIFF, ANEU, BMP, CBC, MG ####[facility] [place] [address] LABORATORYOrdered By: SYSTEM SYSTEM on 04-07-2025 Basophils (Bld) [#/Vol] 0.1 103/mcL Normal 0.0 - 0.3 10^3/mcL Workflow SS Basophils/100 WBC (Bld) 1.1 % Normal 0.0 - 2.5 % Workflow SS Calcium [Mass/Vol] 9.4 mg/dL Normal 8.7 - 10. 4 mg/dL ADM SS Chloride [Moles/Vol] 110 mmol/L Normal 98 - 11 0 mEq/L ADM SS CO2 [Moles/Vol] 27 mmol/L Normal 22 - 32 mEq/L ADM SS Creatinine [Mass/Vol] 0.88 mg/dL Normal 0.50 - 1.20 mg/dL ADM SS Comment on above: Interpretive Data: T esting performed on Algisys analyzer using enzymatic creatinine methodology. Electrolyte Balance 6.0 mEq/L Normal 4.0 - 15 .0 mEq/L ADM SS Eosinophils (Bld) [#/Vol] 0.2 103/mcL Normal 0.0 - 0.7 10^3/mcL Workflow SS Eosinophils/100 WBC (Bld) 3.8 % Normal 0.0 - 6.0 % AH Workflow SS Erythrocyte distribution width (RBC) [Ratio] 15.2 % Normal 11.5 - 15.5 % AH Workflow SS Estimated Glomerular Filtration Rate 87 ml/min/1.73sqm Invalid Interpretation Code Chemistry S Comment [...] to calculate the eGFR results. Glucose [Mass/Vol] 101 mg/dL Normal 70 - 110 mg/dL ADM SS Hematocrit (Bld) [Volume fraction] 38.2 % Normal 34.0 - 46.0 % AH Workflow SS Hemoglobin (Bld) [Mass/Vol] 13.2 G/dL Normal 12.0 - 16.0 G/dL AH Workflow SS Lactate [Moles/Vol] 0.5 mmol/L Normal 0.5 - 2. 2 mmol/L ADM SS Lymphocytes (Bld) [#/Vol] 2.1 103/mcL Normal 0.9 - 4.3 10^3/mcL AH Workflow SS Lymphocytes/100 WBC (Bld) 32.4 % Normal 20.0 - 40.0 % AH Workflow SS Magnesium [Mass/Vol] 2.1 mg/dL Normal 1.6 - 2 .4 mg/dL ADM SS MCH (RBC) [Entitic mass] 33.2 pg High 27.0 - 33.0 pg AH Workflow SS MCHC 34.6 G/dL Normal 32.0 - 36.0 G/dL AH Workflow SS MCV (RBC) [Entitic vol] 95.8 fL Normal 80.0 - 99.0 fL AH Workflow SS Monocytes (Bld) [#/Vol] 0.6 103/mcL Normal 0.1 - 1.4 10^3/mcL AH Workflow SS Monocytes/100 WBC (Bld) 8.9 % Normal 2.0 - 13.0 % AH Workflow SS Neutrophils (Bld) [#/Vol] 3.5 103/mcL Normal 2.3 - 8.1 10^3/mcL AH Workflow SS Neutrophils/100 WBC (Bld) 53.8 % Normal 50.0 - 75.0 % AH Workflow SS Platelet mean volume (Bld) [Entitic vol] 7.4 fL Normal 6.6 - 10.5 fL AH Workflow SS Platelets (Bld) [#/Vol] 335 103/mcL Normal 150 - 450 10^3/mcL AH Workflow SS Potassium [Moles/Vol] 3.6 mmol/L Normal 3.5 - 5.0 mEq/L ADM SS RBC (Bld) [#/Vol] 3.99 106/mcL Low 4.10 - 5.3 0 10^6/mcL Workflow SS Sodium [Moles/Vol] 143 mmol/L Normal 136 - 145 mEq/L AH ADM SS Urea nitrogen [Mass/Vol] 9.0 mg/dL Normal 8.0 - 22.0 mg/dL ADM SS Urea nitrogen/Creatinine [Mass ratio] 10.2 ratio Normal 10.0 - 22.0 ratio AH ADM SS WBC (Bld) [#/Vol] 6.4 103/mcL Normal 4.5 - 10.8 10^3/mcL Workflow SS LACon 04-07-2025 Lactic Acid Lvl 0.5 mmol/L Normal 0.5-2.2 [facility] Comment on above: Performed By: #### G FR, LAC, ADIFF, ANEU, BMP, CBC, MG ####[address] [address] MGon 04-07-2025 Magnesium [Mass/Vol] 2.1 mg/dL Normal 1.6-2.4 [facility] Comment on above: Performed By: #### G FR, LAC, ADIFF, ANEU, BMP, CBC, MG ####[address] [address] .Auto Diffon 04-06-2025 Basophil, Absolute 0.1 10 3/mcL Normal 0.0-0.3 [facility] Comment on above: Performed By: #### A DIFF, ANEU, CBC, GFR, BMP, MDW ####[place] [address] Basophils/100 WBC (Bld) 1.3 % Normal 0.0-2.5 [facility] Comment on above: Performed By: #### A DIFF, ANEU, CBC, GFR, BMP, MDW ####[place] [address] Eosinophil, Absolute 0.1 10 3/mcL Normal 0.0-0.7 [facility] Comment on above: Performed By: #### A DIFF, ANEU, CBC, GFR, BMP, MDW ####[address] [address] Eosinophils/100 WBC (Bld) 1.5 % Normal 0.0-6.0 [facility] Comment on above: Performed By: #### A DIFF, ANEU, CBC, GFR, BMP, MDW ####[address] [address] Lymphocyte, Absolute 2.0 10 3/mcL Normal 0.9-4.3 [facility] Comment on above: Performed By: #### A DIFF, ANEU, CBC, GFR, BMP, MDW ####[address] [address] Lymphocytes/100 WBC (Bld) 20.5 % Normal 20.0-40.0 [facility] Comment on above: Performed By: #### A DIFF, ANEU, CBC, GFR, BMP, YOUNG ####[address] [address] Monocyte, Absolute 0.8 10 3/mcL Normal 0.1-1.4 [facility] Comment on above: Performed By: #### A DIFF, ANEU, CBC, GFR, BMP, YOUNG ####[address] [address] Monocytes/100 WBC (Bld) 7.9 % Normal 2.0-13.0 [facility] Comment on above: Performed By: #### A DIFF, ANEU, CBC, GFR, BMP, MDW ####[address] [address] Neutrophils/100 WBC (Bld) 68.8 % Normal 50.0-75.0 [facility] Comment on above: Performed By: #### A DIFF, ANEU, CBC, GFR, BMP, MDW ####[address] [address] .GFRon 04-06-2025 Estimated Glomerular Filtration Rate 80 ml/min/1.73sqm Normal [facility] Comment on above: Result Comment: Stag es of Chronic Kidney Disease (CKD)Stage Description eGFR(ml/min/1.73 sq.m.)CKD 1 Normal kidney function or >=90 normal kindney function with possible kidney damage (ex. Proteinuria)CKD 2 Kidney damage with mild loss 60-89 of kidney functionCKD 3a Mild to moderate loss of kidney 45-59 functionCKD 3b Moderate to severe loss of 30-44 of kindey function CKD 4 Severe loss of kidney function 15-29CKD 5 Kidney failure <15Note: (go live 2024) the eGFR calculation was updated to the KD-EPI creatinine equation without a race factor to calculate theeGFR results. Performed By: #### A DIFF, ANEU, CBC, GFR, BMP, MDW ####[address] [address] .MDWon 04-06-2025 Monocyte Distribution Width 21.04 High 0.00-20.00 [facility] Comment on above: Result Comment: For adults in ED, MDW>20.0 may be associated with a higher risk of sepsis during the first 12hrs of hospital admission Performed By: #### A DIFF, ANEU, CBC, GFR, BMP, YOUNG ####[place] [address] .NEUABSon 04-06-2025 Neutrophil, Absolute 6.8 10 3/mcL Normal 2.3-8.1 [facility] Comment on above: Performed By: #### A DIFF, ANEU, CBC, GFR, BMP, YOUNG ####[place] [address] BMPon 04-06-2025 BUN/Creatinine Ratio 10.5 ratio Normal 10.0-22.0 [facility] Comment on above: Performed By: #### A DIFF, ANEU, CBC, GFR, BMP, MDDaija ####[place] [address] Calcium [Mass/Vol] 9.6 mg/dL Normal 8.7-10.4 [facility] Comment on above: Performed By: #### A DIFF, ANEU, CBC, GFR, BMP, MDW ####[place] [address] Chloride [Moles/Vol] 108 mmol/L Normal 98-110 [facility] Comment on above: Performed By: #### A DIFF, ANEU, CBC, GFR, BMP, MDW ####[address] [address] CO2 [Moles/Vol] 28 mmol/L Normal 22-32 [facility] Comment on above: Performed By: #### A DIFF, ANEU, CBC, GFR, BMP, YOUNG ####[address] [address] Creatinine [Mass/Vol] 0.95 mg/dL Normal 0.50-1.20 [facility] Comment on above: Result Comment: Test ing performed on Algisys analyzer using enzymatic creatinine methodology. Performed By: #### A DIFF, ANEU, CBC, GFR, BMPYOUNG ####[place] [address] Electrolyte Balance 4.0 mEq/L Normal 4.0-15.0 [facility] Comment on above: Performed By: #### A DIFF, ANEU, CBC, GFR, BMPYOUNG ####[place] [address] Glucose [Mass/Vol] 84 mg/dL Normal 70-110 [facility] Comment on above: Performed By: #### A DIFF, ANEU, CBC, GFR, BMPYOUNG ####[place] [address] Potassium [Moles/Vol] 4.4 mmol/L Normal 3.5-5.0 [facility] Comment on above: Performed By: #### A DIFF, ANEU, CBC, GFR, BMPYOUNG ####[place] [id number] Sodium [Moles/Vol] 140 mmol/L Normal 136-145 [facility] Comment on above: Performed By: #### A DIFF, ANEU, CBC, GFR, BMPYOUNG ####[place] [address] Urea nitrogen [Mass/Vol] 10.0 mg/dL Normal 8.0-22.0 [facility] Comment on above: Performed By: #### A DIFF, ANEU, CBC, GFR, BMPYOUNG ####[place] [id number] CBCon 04-06-2025 Erythrocyte distribution width (RBC) [Ratio] 15.2 % Normal 11.5-15.5 [facility] Comment on above: Performed By: #### A DIFF, ANEU, CBC, GFR, BMP, MDW ####[place] [address] Hematocrit (Bld) [Volume fraction] 40.7 % Normal 34.0-46.0 [facility] Comment on above: Performed By: #### A DIFF, ANEU, CBC, GFR, BMP, MDW ####[place] [address] Hgb 13.7 G/dL Normal 12.0-16.0 [facility] Comment on above: Performed By: #### A DIFF, ANEU, CBC, GFR, BMP, W ####[place] [address] MCH (RBC) [Entitic mass] 32.5 pg Normal 27.0-33.0 [facility] Comment on above: Performed By: #### A DIFF, ANEU, CBC, GFR, BMP, MDW ####[place] [address] MCHC 33.8 G/dL Normal 32.0-36.0 [facility] Comment on above: Performed By: #### A DIFF, ANEU, CBC, GFR, BMP, MDW ####[place] [address] MCV (RBC) [Entitic vol] 96.3 fL Normal 80.0-99.0 [facility] Comment on above: Performed By: #### A DIFF, ANEU, CBC, GFR, BMP, MDW ####[place] [address] Platelet 329 10 3/mcL Normal 150-450 [facility] Comment on above: Performed By: #### A DIFF, ANEU, CBC, GFR, BMP, MDW ####[place] [address] Platelet mean volume (Bld) [Entitic vol] 7.5 fL Normal 6.6-10.5 [facility] Comment on above: Performed By: #### A DIFF, ANEU, CBC, GFR, BMP, MDW ####[place] [id number] [address] [place] [address] RBC 4.22 10 6/mcL Normal 4.10-5.30 [facility] Comment on above: Performed By: #### A DIFF, ANEU, CBC, GFR, BMP, MDW ####[address] [address] WBC 9.9 10 3/mcL Normal 4.5-10.8 [facility] Comment on above: Performed By: #### A DIFF, ANEU, CBC, GFR, BMP, W ####[address] [address] LABORATORYOrdered By: SYSTEM SYSTEM on 04-06-2025 Basophils (Bld) [#/Vol] 0.1 103/mcL Normal 0.0 - 0.3 10^3/mcL Workflow SS Basophils/100 WBC (Bld) 1.3 % Normal 0.0 - 2.5 % Workflow SS Calcium [Mass/Vol] 9.6 mg/dL Normal 8.7 - 10. 4 mg/dL ADM SS Chloride [Moles/Vol] 108 mmol/L Normal 98 - 11 0 mEq/L ADM SS CO2 [Moles/Vol] 28 mmol/L Normal 22 - 32 mEq/L ADM SS Creatinine [Mass/Vol] 0.95 mg/dL Normal 0.50 - 1.20 mg/dL ADM SS Comment on above: Interpretive Data: T esting performed on Algisys analyzer using enzymatic creatinine methodology. Electrolyte Balance 4.0 mEq/L Normal 4.0 - 15 .0 mEq/L ADM SS Eosinophils (Bld) [#/Vol] 0.1 103/mcL Normal 0.0 - 0.7 10^3/mcL Workflow SS Eosinophils/100 WBC (Bld) 1.5 % Normal 0.0 - 6.0 % AH Workflow SS Erythrocyte distribution width (RBC) [Ratio] 15.2 % Normal 11.5 - 15.5 % AH Workflow SS Estimated Glomerular Filtration Rate 80 ml/min/1.73sqm Invalid Interpretation Code AH ADM SS Comment on above: Interpretive [...] to calculate the eGFR results. Glucose [Mass/Vol] 84 mg/dL Normal 70 - 110 mg/dL AH ADM SS Hematocrit (Bld) [Volume fraction] 40.7 % Normal 34.0 - 46.0 % AH Workflow SS Hemoglobin (Bld) [Mass/Vol] 13.7 G/dL Normal 12.0 - 16.0 G/dL AH Workflow SS Lymphocytes (Bld) [#/Vol] 2.0 103/mcL Normal 0.9 - 4.3 10^3/mcL AH Workflow SS Lymphocytes/100 WBC (Bld) 20.5 % Normal 20.0 - 40.0 % AH Workflow SS MCH (RBC) [Entitic mass] 32.5 pg Normal 27.0 - 33.0 pg AH Workflow SS MCHC 33.8 G/dL Normal 32.0 - 36.0 G/dL AH Workflow SS MCV (RBC) [Entitic vol] 96.3 fL Normal 80.0 - 99.0 fL AH Workflow SS Monocyte distribution width Auto (Bld) [Entitic vol] 21.04 1 High 0.00 - 20.00 AH Workflow SS Comment on above: Result Comment: For adults in ED, MDW>20.0 may be associated with a higher risk of sepsis during the first 12hrs of hospital admission Monocytes (Bld) [#/Vol] 0.8 103/mcL Normal 0.1 - 1.4 10^3/mcL AH Workflow SS Monocytes/100 WBC (Bld) 7.9 % Normal 2.0 - 13.0 % AH Workflow SS Neutrophils (Bld) [#/Vol] 6.8 103/mcL Normal 2.3 - 8.1 10^3/mcL AH Workflow SS Neutrophils/100 WBC (Bld) 68.8 % Normal 50.0 - 75.0 % AH Workflow SS Platelet mean volume (Bld) [Entitic vol] 7.5 fL Normal 6.6 - 10.5 fL AH Workflow SS Platelets (Bld) [#/Vol] 329 103/mcL Normal 150 - 450 10^3/mcL AH Workflow SS Potassium [Moles/Vol] 4.4 mmol/L Normal 3.5 - 5.0 mEq/L AH ADM SS RBC (Bld) [#/Vol] 4.22 106/mcL Normal 4.10 - 5.3 0 10^6/mcL AH Workflow SS Sodium [Moles/Vol] 140 mmol/L Normal 136 - 145 mEq/L AH ADM SS Urea nitrogen [Mass/Vol] 10.0 mg/dL Normal 8.0 - 22.0 mg/dL AH ADM SS Urea nitrogen/Creatinine [Mass ratio] 10.5 ratio Normal 10.0 - 22.0 ratio AH ADM SS WBC (Bld) [#/Vol] 9.9 103/mcL Normal 4.5 - 10.8 10^3/mcL AH Workflow SS LABORATORYOrdered By: Deshaun Dowlinght on 04-06-2025 Appearance (U) Clear (04/06/25 3:08 PM) Normal Clear AH Auto Urine SS Bilirubin Ql (U) Negative (04/06/25 3:08 PM) Normal Neg-Trace AH Auto Urine SS Color (U) Yellow (04/06/25 3:08 PM) Normal AH Auto Urine SS Glucose Test strip (U) [Mass/Vol] Negative Normal Negative AH Auto Urine SS Hemoglobin Auto test strip (U) [Mass/Vol] Negative (04/06/25 3:08 PM) Normal Neg-Trace AH Auto Urine SS Ketones Ql (U) Negative Normal Neg-Trace AH Auto Urine SS UA Leuk Est Negative (04/06/25 3:08 PM) Normal Negative AH Auto Urine SS UA Nitrite Negative (04/06/25 3:08 PM) Normal Negative AH Auto Urine SS UA pH 6.5 (04/06/25 3:08 PM) Normal 5.0 - 8.0 AH Auto Urine SS UA Protein Negative Normal Negative AH Auto Urine SS UA Spec Grav <=1.005 *ABN* (04/06/25 3:08 PM) Invalid Interpretation Code 1.006-1.029 AH Auto Urine SS UA Specimen Type Clean Catch (04/06/25 3:08 PM) Normal AH Auto Urine SS UA Urobilinogen 0.2 E.U./dL Normal 0.2-1.0 AH Auto Urine SS UAon 04-06-2025 Color (U) Yellow Normal [facility] Comment on above: Performed By: #### U A ####[place] [address] Glucose (U) [Mass/Vol] Negative Normal Negative [facility] Comment on above: Performed By: #### U A ####[place] [address] Ketones Ql (U) Negative Normal Neg-Trace [facility] Comment on above: Performed By: #### U A ####[place] [address] UA Appear Clear Normal Clear [facility] Comment on above: Performed By: #### U A ####[place] [address] UA Blood Negative Normal Neg-Trace [facility] Comment on above: Performed By: #### U A ####[place] [address] UA Leuk Est Negative Normal Negative [facility] Comment on above: Performed By: #### U A ####[place] [address] UA Nitrite Negative Normal Negative [facility] Comment on above: Performed By: #### U A ####[place] [address] UA pH 6.5 Normal 5.0 - 8.0 [facility] Comment on above: Performed By: #### U A ####[place] [address] UA Protein Negative Normal Negative [facility] Comment on above: Performed By: #### U A ####[place] [address] UA Spec Grav <=1.005 Abnormal 1.006-1.029 [facility] Comment on above: Performed By: #### U A ####[place] [id number] UA Specimen Type Clean Catch Normal [facility] Comment on above: Performed By: #### U A ####[place] [address] UA Urobilinogen 0.2 E.U./dL Normal 0.2-1.0 [facility] Comment on above: Performed By: #### U A ####[place] [address] Urobilinogen (U) [Mass/Vol] Negative Normal Neg-Trace [facility] Comment on above: Performed By: #### U A ####[place] [address] US RENALon 04-06-2025 US RENAL Normal [facility] XR ABDOMEN APon 04-06-2025 XR ABDOMEN AP Normal [facility] .Auto Diffon 04-05-2025 Basophil, Absolute 0.1 10 3/mcL Normal 0.0-0.3 [facility] Comment on above: Performed By: #### B MP, GFR, ANEU, CBC, ADIFF ####[place] [address] Basophils/100 WBC (Bld) 1.4 % Normal 0.0-2.5 [facility] Comment on above: Performed By: #### B MP, GFR, ANEU, CBC, ADIFF ####[place] [address] Eosinophil, Absolute 0.3 10 3/mcL Normal 0.0-0.7 [facility] Comment on above: Performed By: #### B MP, GFR, ANEU, CBC, ADIFF ####[address] [address] Eosinophils/100 WBC (Bld) 3.7 % Normal 0.0-6.0 [facility] Comment on above: Performed By: #### B MP, GFR, ANEU, CBC, ADIFF ####[address] [address] Lymphocyte, Absolute 2.2 10 3/mcL Normal 0.9-4.3 [facility] Comment on above: Performed By: #### B MP, GFR, ANEU, CBC, ADIFF ####[address] [address] Lymphocytes/100 WBC (Bld) 31.9 % Normal 20.0-40.0 [facility] Comment on above: Performed By: #### B MP, GFR, ANEU, CBC, ADIFF ####[place] [id number] [address] [place] [address] Monocyte, Absolute 0.7 10 3/mcL Normal 0.1-1.4 [facility] Comment on above: Performed By: #### B MP, GFR, ANEU, CBC, ADIFF ####[address] [address] Monocytes/100 WBC (Bld) 9.8 % Normal 2.0-13.0 [facility] Comment on above: Performed By: #### B MP, GFR, ANEU, CBC, ADIFF ####[address] [address] Neutrophils/100 WBC (Bld) 53.2 % Normal 50.0-75.0 [facility] Comment on above: Performed By: #### B MP, GFR, ANEU, CBC, ADIFF ####[address] [address] .GFRon 04-05-2025 Estimated Glomerular Filtration Rate 96 ml/min/1.73sqm Normal [facility] Comment on above: Result Comment: Stag es of Chronic Kidney Disease (CKD)Stage Description eGFR(ml/min/1.73 sq.m.)CKD 1 Normal kidney function or >=90 normal kindney function with possible kidney damage (ex. Proteinuria)CKD 2 Kidney damage with mild loss 60-89 of kidney functionCKD 3a Mild to moderate loss of kidney 45-59 functionCKD 3b Moderate to severe loss of 30-44 of kindey function CKD 4 Severe loss of kidney function 15-29CKD 5 Kidney failure <15Note: (go live 2024) the eGFR calculation was updated to the KD-EPI creatinine equation without a race factor to calculate theeGFR results. Performed By: #### B MP, GFR, ANEU, CBC, ADIFF ####[place] [address] .NEUABSon 04-05-2025 Neutrophil, Absolute 3.7 10 3/mcL Normal 2.3-8.1 [facility] Comment on above: Performed By: #### B MP, GFR, ANEU, CBC, ADIFF ####[place] [address] BMPon 04-05-2025 BUN/Creatinine Ratio 12.3 ratio Normal 10.0-22.0 [facility] MA[facility] Comment on above: Order Comment: Routi ne for 0501 the morning of patient admission. Performed By: #### B MP, GFR, ANEU, CBC, ADIFF ####[place] [address] Calcium [Mass/Vol] 8.9 mg/dL Normal 8.7-10.4 [facility] MAIN Comment on above: Order Comment: Routi ne for 0501 the morning of patient admission. Performed By: #### B MP, GFR, ANEU, CBC, ADIFF ####[place] [address] Chloride [Moles/Vol] 110 mmol/L Normal 98-110 [facility] Comment on above: Order Comment: Routi ne for 0501 the morning of patient admission. Performed By: #### B MP, GFR, ANEU, CBC, ADIFF ####[place] [address] CO2 [Moles/Vol] 26 mmol/L Normal 22-32 [facility] Comment on above: Order Comment: Routi ne for 0501 the morning of patient admission. Performed By: #### B MP, GFR, ANEU, CBC, ADIFF ####[place] [address] Creatinine [Mass/Vol] 0.81 mg/dL Normal 0.50-1.20 [facility] Comment on above: Order Comment: Routi ne for 0501 the morning of patient admission. Result Comment: Test ing performed on Algisys analyzer using enzymatic creatinine methodology. Performed By: #### B MP, GFR, ANEU, CBC, ADIFF ####[place] [address] Electrolyte Balance 5.0 mEq/L Normal 4.0-15.0 [facility]IN Comment on above: Order Comment: Routi ne for 0501 the morning of patient admission. Performed By: #### B MP, GFR, ANEU, CBC, ADIFF ####[place] [id number] Glucose [Mass/Vol] 84 mg/dL Normal 70-110 [facility] MAIN Comment on above: Order Comment: Routi ne for 0501 the morning of patient admission. Performed By: #### B MP, GFR, ANEU, CBC, ADIFF ####[place] [id number] Potassium [Moles/Vol] 4.2 mmol/L Normal 3.5-5.0 [facility] Comment on above: Order Comment: Routi ne for 0501 the morning of patient admission. Result Comment: Spec imen slightly hemolyzed. Performed By: #### B MP, GFR, ANEU, CBC, ADIFF ####[place] [address] Sodium [Moles/Vol] 141 mmol/L Normal 136-145 [facility] MAIN Comment on above: Order Comment: Routi ne for 0501 the morning of patient admission. Performed By: #### B MP, GFR, ANEU, CBC, ADIFF ####[place] [address] Urea nitrogen [Mass/Vol] 10.0 mg/dL Normal 8.0-22.0 [facility] Comment on above: Order Comment: Routi ne for 0501 the morning of patient admission. Performed By: #### B MP, GFR, ANEU, CBC, ADIFF ####[place] [id number] CBCon 04-05-2025 Erythrocyte distribution width (RBC) [Ratio] 15.6 % High 11.5-15.5 [facility] Comment on above: Order Comment: Routi ne for 0501 the morning of patient admission. Performed By: #### B MP, GFR, ANEU, CBC, ADIFF ####[place] [id number] Hematocrit (Bld) [Volume fraction] 37.4 % Normal 34.0-46.0 [facility] Comment on above: Order Comment: Routi ne for 0501 the morning of patient admission. Performed By: #### B MP, GFR, ANEU, CBC, ADIFF ####[place] [address] Hgb 12.7 G/dL Normal 12.0-16.0 [facility] Comment on above: Order Comment: Routi ne for 0501 the morning of patient admission. Performed By: #### B MP, GFR, ANEU, CBC, ADIFF ####[place] [address] MCH (RBC) [Entitic mass] 32.9 pg Normal 27.0-33.0 [facility] Comment on above: Order Comment: Routi ne for 0501 the morning of patient admission. Performed By: #### B MP, GFR, ANEU, CBC, ADIFF ####[place] [address] MCHC 34.0 G/dL Normal 32.0-36.0 [facility] Comment on above: Order Comment: Routi ne for 0501 the morning of patient admission. Performed By: #### B MP, GFR, ANEU, CBC, ADIFF ####[place] [address] MCV (RBC) [Entitic vol] 96.7 fL Normal 80.0-99.0 [facility] MAIN Comment on above: Order Comment: Routi ne for 0501 the morning of patient admission. Performed By: #### B MP, GFR, ANEU, CBC, ADIFF ####[place] [address] Platelet 369 10 3/mcL Normal 150-450 [facility] Comment on above: Order Comment: Routi ne for 0501 the morning of patient admission. Performed By: #### B MP, GFR, ANEU, CBC, ADIFF ####[place] [address] Platelet mean volume (Bld) [Entitic vol] 7.7 fL Normal 6.6-10.5 [facility] Comment on above: Order Comment: Routi ne for 0501 the morning of patient admission. Performed By: #### B MP, GFR, ANEU, CBC, ADIFF ####[address] [address] RBC 3.87 10 6/mcL Low 4.10-5.30 [facility] Comment on above: Order Comment: Routi ne for 0501 the morning of patient admission. Performed By: #### B MP, GFR, ANEU, CBC, ADIFF ####[address] [address] WBC 7.0 10 3/mcL Normal 4.5-10.8 [facility] Comment on above: Order Comment: Routi ne for 0501 the morning of patient admission. Performed By: #### B MP, GFR, ANEU, CBC, ADIFF ####[address] [address] CURon 04-05-2025 CUR [facility] MAIN LABORATORYOrdered By: SYSTEM SYSTEM on 04-05-2025 Basophils (Bld) [#/Vol] 0.1 103/mcL Normal 0.0 - 0.3 10^3/mcL AH Workflow SS Basophils/100 WBC (Bld) 1.4 % Normal 0.0 - 2.5 % Workflow SS Calcium [Mass/Vol] 8.9 mg/dL Normal 8.7 - 10. 4 mg/dL ADM SS Chloride [Moles/Vol] 110 mmol/L Normal 98 - 11 0 mEq/L ADM SS CO2 [Moles/Vol] 26 mmol/L Normal 22 - 32 mEq/L ADM SS Creatinine [Mass/Vol] 0.81 mg/dL Normal 0.50 - 1.20 mg/dL ADM SS Comment on above: Interpretive Data: T esting performed on Algisys analyzer using enzymatic creatinine methodology. Electrolyte Balance 5.0 mEq/L Normal 4.0 - 15 .0 mEq/L ADM SS Eosinophils (Bld) [#/Vol] 0.3 103/mcL Normal 0.0 - 0.7 10^3/mcL AH Workflow SS Eosinophils/100 WBC (Bld) 3.7 % Normal 0.0 - 6.0 % AH Workflow SS Erythrocyte distribution width (RBC) [Ratio] 15.6 % High 11.5 - 15.5 % AH Workflow SS Estimated Glomerular Filtration Rate 96 ml/min/1.73sqm Invalid Interpretation Code Chemistry S Comment [...] to calculate the eGFR results. Glucose [Mass/Vol] 84 mg/dL Normal 70 - 110 mg/dL ADM SS Hematocrit (Bld) [Volume fraction] 37.4 % Normal 34.0 - 46.0 % AH Workflow SS Hemoglobin (Bld) [Mass/Vol] 12.7 G/dL Normal 12.0 - 16.0 G/dL AH Workflow SS Lymphocytes (Bld) [#/Vol] 2.2 103/mcL Normal 0.9 - 4.3 10^3/mcL AH Workflow SS Lymphocytes/100 WBC (Bld) 31.9 % Normal 20.0 - 40.0 % AH Workflow SS MCH (RBC) [Entitic mass] 32.9 pg Normal 27.0 - 33.0 pg AH Workflow SS MCHC 34.0 G/dL Normal 32.0 - 36.0 G/dL AH Workflow SS MCV (RBC) [Entitic vol] 96.7 fL Normal 80.0 - 99.0 fL AH Workflow SS Monocytes (Bld) [#/Vol] 0.7 103/mcL Normal 0.1 - 1.4 10^3/mcL AH Workflow SS Monocytes/100 WBC (Bld) 9.8 % Normal 2.0 - 13.0 % AH Workflow SS Neutrophils (Bld) [#/Vol] 3.7 103/mcL Normal 2.3 - 8.1 10^3/mcL AH Workflow SS Neutrophils/100 WBC (Bld) 53.2 % Normal 50.0 - 75.0 % AH Workflow SS Platelet mean volume (Bld) [Entitic vol] 7.7 fL Normal 6.6 - 10.5 fL Workflow SS Platelets (Bld) [#/Vol] 369 103/mcL Normal 150 - 450 10^3/mcL AH Workflow SS Potassium [Moles/Vol] 4.2 mmol/L Normal 3.5 - 5.0 mEq/L ADM SS Comment on above: Result Comment: Spec imen slightly hemolyzed. RBC (Bld) [#/Vol] 3.87 106/mcL Low 4.10 - 5.3 0 10^6/mcL AH Workflow SS Sodium [Moles/Vol] 141 mmol/L Normal 136 - 145 mEq/L ADM SS Urea nitrogen [Mass/Vol] 10.0 mg/dL Normal 8.0 - 22.0 mg/dL ADM SS Urea nitrogen/Creatinine [Mass ratio] 12.3 ratio Normal 10.0 - 22.0 ratio ADM SS WBC (Bld) [#/Vol] 7.0 103/mcL Normal 4.5 - 10.8 10^3/mcL Workflow SS .Auto Diffon 04-04-2025 Basophil, Absolute 0.2 10 3/mcL Normal 0.0-0.3 [facility]IN Comment on above: Performed By: #### C LARISA BMP, GFRGURMEET ADIFF, MDW ####[address] [address] Basophils/100 WBC (Bld) 1.4 % Normal 0.0-2.5 [facility] MAIN Comment on above: Performed By: #### C BC, BMP, GFR, CHEN LEVI MDW ####[address] [address] Eosinophil, Absolute 0.2 10 3/mcL Normal 0.0-0.7 [facility] MAIN Comment on above: Performed By: #### C BC BMP, GFRGURMEET ADIFF, MDW ####[address] [address] Eosinophils/100 WBC (Bld) 1.3 % Normal 0.0-6.0 [facility] Comment on above: Performed By: #### C BC, BMP, GFR, CHEN LEVI MDW ####[address] [address] Lymphocyte, Absolute 2.3 10 3/mcL Normal 0.9-4.3 [facility] MAIN Comment on above: Performed By: #### C BC, BMP, GFR, ANEUCHEN MDW ####[address] [address] Lymphocytes/100 WBC (Bld) 20.4 % Normal 20.0-40.0 [facility] Comment on above: Performed By: #### C BC, BMP, GFR, CHEN LEVI MDW ####[address] [address] Monocyte, Absolute 1.1 10 3/mcL Normal 0.1-1.4 [facility]IN Comment on above: Performed By: #### C BC, BMP, GFR, CHEN LEVI MDW ####[address] [address] Monocytes/100 WBC (Bld) 9.3 % Normal 2.0-13.0 [facility] MAIN Comment on above: Performed By: #### C BC, BMP, GFR, CHEN LEVI MDW ####[address] [address] Neutrophils/100 WBC (Bld) 67.6 % Normal 50.0-75.0 [facility] Comment on above: Performed By: #### C BC, BMP, GFR, CHEN LEVI MDW ####[address] [address] .GFRon 04-04-2025 Estimated Glomerular Filtration Rate 92 ml/min/1.73sqm Normal [facility] MAIN Comment on above: Result Comment: Stag es of Chronic Kidney Disease (CKD)Stage Description eGFR(ml/min/1.73 sq.m.)CKD 1 Normal kidney function or >=90 normal kindney function with possible kidney damage (ex. Proteinuria)CKD 2 Kidney damage with mild loss 60-89 of kidney functionCKD 3a Mild to moderate loss of kidney 45-59 functionCKD 3b Moderate to severe loss of 30-44 of kindey function CKD 4 Severe loss of kidney function 15-29CKD 5 Kidney failure <15Note: (go live 2024) the eGFR calculation was updated to the KD-EPI creatinine equation without a race factor to calculate theeGFR results. Performed By: #### C BC, BMP, GFR, CHEN LEVI MDW ####[address] [address] .MDWon 04-04-2025 Monocyte Distribution Width 18.36 Normal 0.00-20.00 [facility]IN Comment on above: Result Comment: For ED adult patients suspected of sepsis, MDW<=20.0 does not rule out sepsis or risk of sepsis Performed By: #### C BC, BMP, GFR, CHEN LEVI MDW ####[place] [address] .NEUABSon 04-04-2025 Neutrophil, Absolute 7.8 10 3/mcL Normal 2.3-8.1 [facility] MAIN Comment on above: Performed By: #### C BC, BMP, GFR, CHEN LEVI MDW ####[place] [address] BMPon 04-04-2025 BUN/Creatinine Ratio 14.3 ratio Normal 10.0-22.0 [facility] Comment on above: Performed By: #### C BC, BMP, GFR, CHEN LEVI MDW ####[place] [address] Calcium [Mass/Vol] 10.2 mg/dL Normal 8.7-10.4 [facility] MAIN Comment on above: Performed By: #### C BC, BMP, GFR, CHEN LEVI MDW ####[place] [address] Chloride [Moles/Vol] 108 mmol/L Normal 98-110 [facility] Comment on above: Performed By: #### C BC, BMP, GFR, CHEN LEVI MDW ####[place] [address] CO2 [Moles/Vol] 27 mmol/L Normal 22-32 [facility] Comment on above: Performed By: #### C BC, BMP, GFR, CHEN LEVI MDW ####[address] [address] Creatinine [Mass/Vol] 0.84 mg/dL Normal 0.50-1.20 [facility] Comment on above: Result Comment: Test ing performed on Algisys analyzer using enzymatic creatinine methodology. Performed By: #### C BC, BMP, GFR, CHEN LEVI MDW ####[place] [address] Electrolyte Balance 6.0 mEq/L Normal 4.0-15.0 [facility] MAIN Comment on above: Performed By: #### C BC, BMP, GFR, CHEN LEVI MDW ####[place] [address] Glucose [Mass/Vol] 78 mg/dL Normal 70-110 [facility] Comment on above: Performed By: #### C BC, BMP, GFR, CHEN LEVI MDW ####[place] [address] Potassium [Moles/Vol] 3.8 mmol/L Normal 3.5-5.0 [facility] Comment on above: Performed By: #### C BC, BMP, GFR, CHEN LEVI MDW ####[place] [id number] Sodium [Moles/Vol] 141 mmol/L Normal 136-145 [facility] Comment on above: Performed By: #### C BC, BMP, GFR, CHEN LEVI MDW ####[place] [address] Urea nitrogen [Mass/Vol] 12.0 mg/dL Normal 8.0-22.0 [facility] Comment on above: Performed By: #### C BC, BMP, GFR, CHEN LEVI MDW ####[address] [address] CBCon 04-04-2025 Erythrocyte distribution width (RBC) [Ratio] 15.6 % High 11.5-15.5 [facility] Comment on above: Performed By: #### C BC, BMP, GFR, CHEN LEVI MDW ####[place] [address] Hematocrit (Bld) [Volume fraction] 45.3 % Normal 34.0-46.0 [facility] Comment on above: Performed By: #### C BC, BMP, GFR, CHEN LEVI MDW ####[place] [address] Hgb 15.1 G/dL Normal 12.0-16.0 [facility] Comment on above: Performed By: #### C BC, BMP, GFR, CHEN LEVI MDW ####[place] [address] MCH (RBC) [Entitic mass] 32.1 pg Normal 27.0-33.0 [facility] Comment on above: Performed By: #### C BC, BMP, GFR, CHEN LEVI MDW ####[place] [address] MCHC 33.3 G/dL Normal 32.0-36.0 [facility] Comment on above: Performed By: #### C BC, BMP, GFR, CHEN LEVI MDW ####[place] [address] MCV (RBC) [Entitic vol] 96.4 fL Normal 80.0-99.0 [facility] Comment on above: Performed By: #### C BC, BMP, GFR, CHEN LEVI MDW ####[place] [address] Platelet 381 10 3/mcL Normal 150-450 [facility] Comment on above: Performed By: #### C BC, BMP, GFR, CHEN LEVI MDW ####[place] [address] Platelet mean volume (Bld) [Entitic vol] 7.8 fL Normal 6.6-10.5 [facility] Comment on above: Performed By: #### C BC, BMP, GFR, CHEN LEVI MDW ####[place] [address] RBC 4.70 10 6/mcL Normal 4.10-5.30 [facility] Comment on above: Performed By: #### C BC, BMP, GFR, CHEN LEVI MDW ####[facility] [place] [id number] WBC 11.5 10 3/mcL High 4.5-10.8 [facility] Comment on above: Performed By: #### C BC, BMP, GFR, CHEN LEVI MDW ####[facility] [place] [id number] ABDOMEN/PELVIS W/O CONTRA STon 04-04-2025 CT ABDOMEN/PELVIS W/O CONTRAST Normal [facility] MA[facility] LABORATORYOrdered By: Bel Wetzel on 04-04-2025 Beta HCG ( test) Ql (U) Negative (04/04/25 3:11 PM) [facility] Work Phone: Urine Preg POC Confirmation Sent to lab (04/04/25 3:11 PM) [facility] Work Phone: LABORATORYOrdered By: Jaguar Cisneros on 04-04-2025 Appearance (U) Clear (04/04/25 2:55 PM) Normal Clear AH Auto Urine SS Appearance (U) Cloudy *ABN* (04/04/25 2:55 PM) Invalid Interpretation Code Clear AH Auto Urine SS Hemoglobin Auto test strip (U) [Mass/Vol] Negative (04/04/25 2:55 PM) Normal Neg-Trace AH Auto Urine SS Hemoglobin Auto test strip (U) [Mass/Vol] Moderate *ABN* (04/04/25 2:55 PM) Invalid Interpretation Code Neg-Trace AH Auto Urine SS UA Leuk Est Trace *NA* (04/04/25 2:55 PM) Invalid Interpretation Code Negative AH Auto Urine SS UA Leuk Est Large *ABN* (04/04/25 2:55 PM) Invalid Interpretation Code Negative AH Auto Urine SS UA pH 6.5 (04/04/25 2:55 PM) Normal 5.0 - 8.0 AH Auto Urine SS UA pH >=8.5 *ABN* (04/04/25 2:55 PM) Invalid Interpretation Code 5.0 - 8.0 AH Auto Urine SS UA Protein Negative Normal Negative AH Auto Urine SS UA Protein 100 mg/dL Invalid Interpretation Code Negative AH Auto Urine SS UA Spec Grav 1.015 (04/04/25 2:55 PM) Normal 1.006-1.029 AH Auto Urine SS UA Spec Grav 1.010 (04/04/25 2:55 PM) Normal 1.006-1.029 AH Auto Urine SS UA Specimen Type Clean Catch (04/04/25 2:55 PM) Normal AH Auto Urine SS UA Specimen Type Not Given (04/04/25 2:55 PM) Normal AH Auto Urine SS LABORATORYOrdered By: Tricia Wilkerson on 04-04-2025 Bacteria LM.HPF (Urine sed) [#/Area] 2 /[HPF] Invalid Interpretation Code Negative AH Auto Urine SS UA RBC 10-20 /HPF Invalid Interpretation Code 0-2 AH Auto Urine SS UA Squam Epithelial 3-5 /HPF Normal 0-20 AH Au to Urine SS UA Trip Rai Crystals 3+ /HPF Normal AH A uto Urine SS WBC LM.HPF (Urine sed) [#/Area] 10-20 /HPF Invalid Interpretation Code 0-5 AH Auto Urine SS LABORATORYOrdered By: SYSTEM SYSTEM on 04-04-2025 Basophils (Bld) [#/Vol] 0.2 103/mcL Normal 0.0 - 0.3 10^3/mcL AH Workflow SS Basophils/100 WBC (Bld) 1.4 % Normal 0.0 - 2.5 % AH Workflow SS Calcium [Mass/Vol] 10.2 mg/dL Normal 8.7 - 10. 4 mg/dL AH ADM SS Chloride [Moles/Vol] 108 mmol/L Normal 98 - 11 0 mEq/L AH ADM SS CO2 [Moles/Vol] 27 mmol/L Normal 22 - 32 mEq/L AH ADM SS Creatinine [Mass/Vol] 0.84 mg/dL Normal 0.50 - 1.20 mg/dL AH ADM SS Comment on above: Interpretive Data: T esting performed on Algisys analyzer using enzymatic creatinine methodology. Electrolyte Balance 6.0 mEq/L Normal 4.0 - 15 .0 mEq/L AH ADM SS Eosinophils (Bld) [#/Vol] 0.2 103/mcL Normal 0.0 - 0.7 10^3/mcL AH Workflow SS Eosinophils/100 WBC (Bld) 1.3 % Normal 0.0 - 6.0 % AH Workflow SS Erythrocyte distribution width (RBC) [Ratio] 15.6 % High 11.5 - 15.5 % AH Workflow SS Estimated Glomerular Filtration Rate 92 ml/min/1.73sqm Invalid Interpretation Code [facility] SS Comment on above: Interpretive [...] to calculate the eGFR results. Glucose [Mass/Vol] 78 mg/dL Normal 70 - 110 mg/dL ADM SS Hematocrit (Bld) [Volume fraction] 45.3 % Normal 34.0 - 46.0 % AH Workflow SS Hemoglobin (Bld) [Mass/Vol] 15.1 G/dL Normal 12.0 - 16.0 G/dL AH Workflow SS Lymphocytes (Bld) [#/Vol] 2.3 103/mcL Normal 0.9 - 4.3 10^3/mcL Workflow SS Lymphocytes/100 WBC (Bld) 20.4 % Normal 20.0 - 40.0 % AH Workflow SS MCH (RBC) [Entitic mass] 32.1 pg Normal 27.0 - 33.0 pg AH Workflow SS MCHC 33.3 G/dL Normal 32.0 - 36.0 G/dL AH Workflow SS MCV (RBC) [Entitic vol] 96.4 fL Normal 80.0 - 99.0 fL AH Workflow SS Monocyte distribution width Auto (Bld) [Entitic vol] 18.36 1 Normal 0.00 - 20.00 Workflow SS Comment on above: Result Comment: For ED adult patients suspected of sepsis, MDW<=20.0 does not rule out sepsis or risk of sepsis Monocytes (Bld) [#/Vol] 1.1 103/mcL Normal 0.1 - 1.4 10^3/mcL AH Workflow SS Monocytes/100 WBC (Bld) 9.3 % Normal 2.0 - 13.0 % AH Workflow SS Neutrophils (Bld) [#/Vol] 7.8 103/mcL Normal 2.3 - 8.1 10^3/mcL AH Workflow SS Neutrophils/100 WBC (Bld) 67.6 % Normal 50.0 - 75.0 % AH Workflow SS Platelet mean volume (Bld) [Entitic vol] 7.8 fL Normal 6.6 - 10.5 fL AH Workflow SS Platelets (Bld) [#/Vol] 381 103/mcL Normal 150 - 450 10^3/mcL AH Workflow SS Potassium [Moles/Vol] 3.8 mmol/L Normal 3.5 - 5.0 mEq/L AH ADM SS RBC (Bld) [#/Vol] 4.70 106/mcL Normal 4.10 - 5.3 0 10^6/mcL AH Workflow SS Sodium [Moles/Vol] 141 mmol/L Normal 136 - 145 mEq/L AH ADM SS Urea nitrogen [Mass/Vol] 12.0 mg/dL Normal 8.0 - 22.0 mg/dL AH ADM SS Urea nitrogen/Creatinine [Mass ratio] 14.3 ratio Normal 10.0 - 22.0 ratio AH ADM SS WBC (Bld) [#/Vol] 11.5 103/mcL High 4.5 - 10.8 10^3/mcL AH Workflow SS Laboratory - Chemistry and C hemistry - challengeOrdered By: Jaguar Cisneros on 04-04-2025 Bilirubin Ql (U) Negative (04/04/25 2:55 PM) Normal Neg-Trace AH Auto Urine SS Ketones Ql (U) Negative Normal Neg-Trace AH Auto Urine SS Laboratory - Specimen inform ationOrdered By: Jaguar Cisneros on 04-04-2025 Color (U) Yellow (04/04/25 2:55 PM) Normal AH Auto Urine SS Laboratory - UrinalysisOrder ed By: Jaguar Cisneros on 04-04-2025 Glucose Test strip (U) [Mass/Vol] Negative Normal Negative AH Auto Urine SS No Panel Informationon 04-04 Culture Urine 10,000 - 50,000 cfu/ ml Multiple bacterial morphotypes present. Probable Contamination. Suggest recollection if clinically indicated. [facility] Work Phone: No Panel InformationOrdered By: Jaguar Cisneros on 04-04-2025 UA Nitrite Negative (04/04/25 2:55 PM) Normal Negative AH Auto Urine SS UA Urobilinogen 0.2 E.U./dL Normal 0.2-1.0 AH Auto Urine SS UAon 04-04-2025 Color (U) Yellow Normal [facility] Comment on above: Order Comment: To be taken from nephrostomy Performed By: #### U AMIC, UA ####[place] [address] Glucose (U) [Mass/Vol] Negative Normal Negative [facility] Comment on above: Order Comment: To be taken from nephrostomy Performed By: #### U AMIC, UA ####[place] [address] Ketones Ql (U) Negative Normal Neg-Trace [facility] Comment on above: Order Comment: To be taken from nephrostomy Performed By: #### U AMIC, UA ####[place] [address] UA Appear Cloudy Abnormal Clear [facility] Comment on above: Order Comment: To be taken from nephrostomy Performed By: #### U AMIC, UA ####[place] [address] UA Blood Moderate Abnormal Neg-Trace [facility] Comment on above: Order Comment: To be taken from nephrostomy Performed By: #### U AMIC, UA ####[place] [address] UA Leuk Est Large Abnormal Negative [facility] Comment on above: Order Comment: To be taken from nephrostomy Performed By: #### U AMIC, UA ####[place] [id number] [address] [place] [address] UA Nitrite Negative Normal Negative [facility] Comment on above: Order Comment: To be taken from nephrostomy Performed By: #### U AMIC, UA ####[place] [address] UA pH >=8.5 Abnormal 5.0 - 8.0 [facility] Comment on above: Order Comment: To be taken from nephrostomy Performed By: #### U AMIC, UA ####[place] [address] UA Protein 100 mg/dL Abnormal Negative [facility] Comment on above: Order Comment: To be taken from nephrostomy Performed By: #### U AMIC, UA ####[place] [address] UA Spec Grav 1.010 Normal 1.006-1.029 [facility] Comment on above: Order Comment: To be taken from nephrostomy Performed By: #### U AMIC, UA ####[place] [address] UA Specimen Type Not Given [facility] Comment on above: Order Comment: To be taken from nephrostomy Performed By: #### U AMIC, UA ####[place] [address] UA Urobilinogen 0.2 E.U./dL Normal 0.2-1.0 [facility] Comment on above: Order Comment: To be taken from nephrostomy Performed By: #### U AMIC, UA ####[place] [address] Urobilinogen (U) [Mass/Vol] Negative Normal Neg-Trace [facility] Comment on above: Order Comment: To be taken from nephrostomy Performed By: #### U AMIC, UA ####[place] [address] Color (U) Yellow Normal [facility] Comment on above: Performed By: #### U A ####[place] [address] Glucose (U) [Mass/Vol] Negative Normal Negative [facility] Comment on above: Performed By: #### U A ####[place] [address] Ketones Ql (U) Negative Normal Neg-Trace [facility] Comment on above: Performed By: #### U A ####[place] [address] UA Appear Clear Normal Clear [facility] Comment on above: Performed By: #### U A ####[place] [address] UA Blood Negative Normal Neg-Trace [facility] Comment on above: Performed By: #### U A ####[place] [address] UA Leuk Est Trace Normal Negative [facility] Comment on above: Performed By: #### U A ####[place] [address] UA Nitrite Negative Normal Negative [facility] Comment on above: Performed By: #### U A ####[place] [address] UA pH 6.5 Normal 5.0 - 8.0 [facility] Comment on above: Performed By: #### U A ####[place] [address] UA Protein Negative Normal Negative [facility] Comment on above: Performed By: #### U A ####[place] [address] UA Spec Grav 1.015 Normal 1.006-1.029 [facility] Comment on above: Performed By: #### U A ####[place] [address] UA Specimen Type Clean Catch Normal [facility] Comment on above: Performed By: #### U A ####[place] [address] UA Urobilinogen 0.2 E.U./dL Normal 0.2-1.0 [facility] Comment on above: Performed By: #### U A ####[place] [address] Urobilinogen (U) [Mass/Vol] Negative Normal Neg-Trace [facility] Comment on above: Performed By: #### U A ####[place] [address] UAMICon 04-04-2025 UA Bacteria 2+ /hpf Abnormal Negative [facility] Comment on above: Performed By: #### U AMIC, UA ####[facility] [place] [address] UA RBC 10-20 Abnormal 0-2 [facility] Comment on above: Performed By: #### U AMIC, UA ####[facility] [place] [address] UA Squam Epithelial 3-5 Normal 0-20 [facility] Comment on above: Performed By: #### U AMIC, UA ####[facility] [place] [address] UA Trip Rai Crystals 3+ /hpf Normal [facility] Comment on above: Performed By: #### U AMIC, UA ####[facility] [place] [address] UA WBC 10-20 Abnormal 0-5 [facility] Comment on above: Performed By: #### U AMIC, UA ####[place] [address] CBC + DIFFon 04-03-2025 Baso # 0.04 x10EE3/UL Normal 0.00 - 0.10 [facility] Comment on above: Performed By: #### 2 [id number] ####[facility],[address] [place] [address] Basophils/100 WBC (Bld) 0.4 % Normal 0.0 - 2.0 [facility] Comment on above: Performed By: #### 2 98376 ####[facility],[address] [place] [address] CBC + DIFF Normal [facility] Comment on above: Result Comment: CBC- COMPLETE BLOOD COUNT Performed By: #### 2 19429 ####[facility],[address] [place] [address] EO # 0.16 x10EE3/UL Normal 0.00 - 0.50 [facility] Comment on above: Performed By: #### 2 60703 ####[facility],[address] [place] [address] Eosinophils/100 WBC (Bld) 1.6 % Normal 0.0 - 7.0 [facility] Comment on above: Performed By: #### 2 25773 ####[facility],[address] [place] [address] Erythrocyte distribution width (RBC) [Ratio] 13.9 % Normal 12.0 - 15.6 [facility] Comment on above: Performed By: #### 2 24926 ####[facility],[address] [place] [address] Hematocrit (Bld) [Volume fraction] 39.2 % Normal 34.0 - 46.0 [facility] Comment on above: Performed By: #### 2 81770 ####[facility],[address] [place] [address] Hemoglobin (Bld) [Mass/Vol] 13.7 g/dL Normal 12.0 - 16.0 [facility] Comment on above: Performed By: #### 2 03707 ####[facility],[address] [place] [address] Lymph # 2.51 x10EE3/UL Normal 0.80 - 2.80 [facility] Comment on above: Performed By: #### 2 55833 ####[facility],[address] [place] [address] Lymphocytes/100 WBC (Bld) 24.6 % Normal 20.0 - 45.0 [facility] Comment on above: Performed By: #### 2 07305 ####[facility],[address] [place], [place] [id number] MANUAL DIFF N/A Normal [facility] Comment on above: Performed By: #### 2 54468 ####[facility],[address] [place], [place] [id number] MCH (RBC) [Entitic mass] 33 pg Normal 27 - 33 [facility] Comment on above: Performed By: #### 2 83194 ####[facility],[address] [place] [address] MCHC 35 X10 3 Normal 32 - 36 [facility] Comment on above: Performed By: #### 2 24683 ####[facility],[address] [place] [address] MCV (RBC) [Entitic vol] 95 fL Normal 80 - 99 [facility] Comment on above: Performed By: #### 2 30153 ####[facility],[address] [place] [address] Moca # 0.91 x10EE3/UL Normal 0.20 - 1.00 [facility] Comment on above: Performed By: #### 2 55896 ####[place] [address] MONOS % 8.9 % Normal 0.0 - 10.0 [facility] Comment on above: Performed By: #### 2 62242 ####[facility],[address] [place] [address] Morphology Efra (Bld) [Interp] N/A Normal [facility] Comment on above: Performed By: #### 2 30071 ####[facility],[address] [place] [address] Neut # 6.59 x10EE3/UL Normal 1.50 - 7.10 [facility] Comment on above: Performed By: #### 2 03951 ####[place] [address] Neutrophils/100 WBC (Bld) 64.6 % Normal 46.0 - 76.0 [facility] Comment on above: Performed By: #### 2 68711 ####[place] [address] PLATELET 361 x10EE3/UL Normal 150 - 450 [facility] Comment on above: Performed By: #### 2 88386 ####[facility] [place],[address] [place] [address] Platelet mean volume (Bld) [Entitic vol] 7.1 fL Normal 6.6 - 10.5 [facility] Comment on above: Result Comment: AUTO MATED DIFFERENTIAL Performed By: #### 2 53805 ####[facility],[address] [place] [address] RBC 4.13 x 10EE6/UL Normal 4.10 - 5.30 [facility] Comment on above: Performed By: #### 2 16836 ####[facility],[address] [place] [address] WBC 10.2 x 10EE3/UL Normal 4.5 - 10.8 [facility] Comment on above: Performed By: #### 2 52278 ####[facility],[address] [place] [address] CMP with eGFRon 04-03-2025 AGE 34 years Normal [facility] Comment on above: Performed By: #### 2 86269 ####[facility],[address] [place] [address] Albumin [Mass/Vol] 3.8 g/dL Normal 3.4 - 5.0 [facility] Comment on above: Performed By: #### 2 25929 ####[facility],[address] [place] [address] Albumin/Globulin [Mass ratio] 1.1 {ratio} Normal 0.9 - 1.6 [facility] Comment on above: Performed By: #### 2 60128 ####[facility],[address] [place] [address] ALK PHOS 85 U/L Normal 46 - 116 [facility] Comment on above: Performed By: #### 2 21896 ####[facility],[address] [place] [address]39[address] ALT [Catalytic activity/Vol] 14 U/L Low 16 - 63 [facility] Comment on above: Performed By: #### 2 51955 ####[facility],[address] [place] [address]10 Anion gap [Moles/Vol] 13 mmol/L Normal 10 - 20 [facility] Comment on above: Performed By: #### 2 86039 ####[facility],[address] [place] [address] AST [Catalytic activity/Vol] 18 U/L Normal 13 - 39 [facility] Comment on above: Performed By: #### 2 08157 ####[facility],[address] [place] [address] B/C RATIO 14 ratio Normal 0 - 30 [facility] Comment on above: Performed By: #### 2 20825 ####[facility],[address] [place] [address]46 Bilirubin [Mass/Vol] 0.4 mg/dL Normal 0.2 - 1.0 [facility] Comment on above: Performed By: #### 2 74915 ####[facility],[address] [place] [address] Calcium [Mass/Vol] 9.2 mg/dL Normal 8.5 - 10.1 [facility] Comment on above: Performed By: #### 2 92513 ####[facility],[address] [place] [address] Chloride [Moles/Vol] 103 mmol/L Normal 98 - 107 [facility] Comment on above: Performed By: #### 2 68123 ####[facility],[address] [place] [address] CMP with eGFR Normal [facility] Comment on above: Result Comment: COMP REHENSIVE METABOLIC PANEL Performed By: #### 2 91295 ####[facility],[address] [place] [address]661 CO2 [Moles/Vol] 25.0 mmol/L Normal 21.0 - 32.0 [facility] Comment on above: Performed By: #### 2 53215 ####[facility],[address] [place] [address] Creatinine [Mass/Vol] 0.95 mg/dL Normal 0.55 - 1.02 [facility] Comment on above: Performed By: #### 2 62543 ####[facility],[address] [place] [address] GFR/1.73 sq M.predicted among non-blacks MDRD (S/P/Bld) [Vol rate/Area] mL/min/{1.73_m2} Normal 60 - 999 [facility] Comment on above: Performed By: #### 2 27185 ####[facility],[address] [place] [address] Result Comment: ACCO RDING TO THE NATIONAL KIDNEY DISEASE EDUCATION PROGRAM(NKDE), A NORMAL eGFRIS A VALUE GREATER THAN OR EQUAL TO 60 ML/MIN/1.73 SQ METERS.CHRONIC KIDNEY DISEASE: <60mL/MIN/1.73 SQ METERSKIDNEY FAILURE: <15mL/MIN/1.73 SQ METERSTHIS TEST SHOULD ONLY BE USED FOR PATIENTS 18 YEARS OF AGE AND OLDER. Globulin (S) [Mass/Vol] 3.5 g/dL Normal 1.5 - 3.8 [facility] Comment on above: Performed By: #### 2 79942 ####[facility],[address] [place] [address]78 Glucose [Mass/Vol] 78 mg/dL Normal 74 - 106 [facility] Comment on above: Performed By: #### 2 55187 ####[facility],[address] [place] [address]018 Potassium [Moles/Vol] 4.0 mmol/L Normal 3.5 - 5.1 [facility] Comment on above: Performed By: #### 2 97102 ####[facility],[address] [place] [address]94 Protein [Mass/Vol] 7.3 g/dL Normal 6.4 - 8.2 [facility] Comment on above: Performed By: #### 2 22864 ####[facility],[address] [place] [address]40 Sodium [Moles/Vol] 137 mmol/L Normal 136 - 145 [facility] Comment on above: Performed By: #### 2 81254 ####[facility] [place],[address] [place], [place] [id number] Urea nitrogen [Mass/Vol] 13 mg/dL Normal 7 - 18 [facility] Comment on above: Performed By: #### 2 59621 ####[facility] [place],[address] [place], [place] [id number] CT ABDOMEN/PELVIS WOon 04-03 CT ABDOMEN/PELVIS WO Normal [facility] ED MED ADMINISTRATION DETAIL on 04-03-2025 ED MED ADMINISTRATION DETAIL Normal [facility] ED NURSES CLINICAL NOTEon ED NURSES CLINICAL NOTE Normal [facility] ED ORDER SHEET (CPOE ONLY)on 04-03-2025 ED ORDER SHEET (CPOE ONLY) Normal [facility] ED PHYSICIAN CLINICAL REPORT on 04-03-2025 ED PHYSICIAN CLINICAL REPORT Normal [facility] ED SUPER BILLon 04-03-2025 ED SUPER BILL Normal [facility] ED VISIT SUMMARYon ED VISIT SUMMARY Normal [facility] ED VITALS FLOW SHEETon 04-03 ED VITALS FLOW SHEET Normal [facility] LACTATEon 04-03-2025 Lactate [Moles/Vol] 0.7 mmol/L Normal 0.4 - 2.0 [facility] Comment on above: Performed By: #### 2 51147 ####[facility],[address] [place] [address] LIPASEon 04-03-2025 Lipase [Catalytic activity/Vol] 36.0 U/L Normal 15.0 - 78.0 [facility] Comment on above: Result Comment: *PLE ASE NOTE THAT RANGES FOR LIPASE HAVE CHANGED OF 10/31/23 DUE TO AN ASSAYUPDATE BY THE HUMANITIES INSTRUCTOR.THE NEW ASSAY RANGE IS 6-250 U/L, WITH A REFERENCERANGE OF 16-77 U/L. Performed By: #### 2 [id number] ####[facility] [place],[address] [place], [place] [id number] URINALYSISon 04-03-2025 Bilirubin Ql (U) Negative Normal NORMAL: NEGATIVE [facility] [place] Comment on above: Performed By: #### 2 43851 ####[facility] [place],[address] [place] [address] Clarity (U) clear Normal NORMAL: CLEAR [facility] [place] Comment on above: Performed By: #### 2 97938 ####[facility] [place],[address] [place] [address] Color (U) yellow Normal NORMAL: YELLOW [facility] [place] Comment on above: Performed By: #### 2 77072 ####[facility] [place],[address] [place], [place] [id number] Glucose Ql (U) NORM Normal NORMAL: NORMAL [facility] [place] Comment on above: Performed By: #### 2 54592 ####[facility] [place],[address] [place] [address] Hemoglobin Ql (U) Negative Normal NORMAL: NEGATIVE [facility] [place] Comment on above: Performed By: #### 2 72295 ####[facility] [place],[address] [place] [address]655 Ketone Negative Normal NORMAL: NEGATIVE [facility] [place] Comment on above: Performed By: #### 2 76597 ####[facility] [place],[address] [place] [address] 03052 Leukocytes Negative Normal NORMAL: NEGATIVE [facility] [place] Comment on above: Performed By: #### 2 51471 ####[facility] [place],[address] [place] [address] 60294 Nitrite Ql (U) Negative Normal NORMAL: NEGATIVE [facility] [place] Comment on above: Performed By: #### 2 89552 ####[facility] [place],[address] [place] [address] pH (U) 7 [pH] Normal NORMAL: 5.0-8.0 [facility] [place] Comment on above: Performed By: #### 2 42791 ####[facility] [place],[address] [place] [address] Protein Ql (U) Negative Normal NORMAL: NEGATIVE [facility] [place] Comment on above: Performed By: #### 2 11734 ####[facility] [place],[address] [place] [address] Sp [place] 1.010 Normal NORMAL: 1.010-1.030 [facility] [place] Comment on above: Performed By: #### 2 48666 ####[facility] [place],[address] [place] [address] Specimen Type R Normal [facility] [place] Comment on above: Performed By: #### 2 07811 ####[facility] [place],[address] [place] [address] Urinalysis dipstick W Reflex Microscopic panel (U) NOT INDICATED Normal [facility] [place] Comment on above: Performed By: #### 2 38877 ####[facility] [place],[address] [place] [address] Urobilinog NORM Normal NORMAL: NORMAL [facility] [place] Comment on above: Performed By: #### 2 62808 ####[facility] [place],[address] [place] [address] CBC + DIFFon 04-01-2025 Baso # 0.05 x10EE3/UL Normal 0.00 - 0.10 [facility] [place] Comment on above: Performed By: #### 2 24764 ####[facility] [place],[address] [place] [address] Basophils/100 WBC (Bld) 0.5 % Normal 0.0 - 2.0 [facility] Comment on above: Performed By: #### 2 59570 ####[facility] [place],[address] [place] [address] CBC + DIFF Normal [facility] [place] Comment on above: Result Comment: CBC- COMPLETE BLOOD COUNT Performed By: #### 2 34047 ####[facility] [place],[address] [place] [address]484 EO # 0.24 x10EE3/UL Normal 0.00 - 0.50 [facility] [place] Comment on above: Performed By: #### 2 74827 ####[facility] [place],[address] [place] [address]707 Eosinophils/100 WBC (Bld) 2.1 % Normal 0.0 - 7.0 [facility] [place] Comment on above: Performed By: #### 2 60112 ####[address] [address] Erythrocyte distribution width (RBC) [Ratio] 13.9 % Normal 12.0 - 15.6 [facility] [place] Comment on above: Performed By: #### 2 64831 ####[facility] [place],[address] [place], [place] [id number] Hematocrit (Bld) [Volume fraction] 40.5 % Normal 34.0 - 46.0 [facility] [place] Comment on above: Performed By: #### 2 60587 ####[facility] [place],[address] [place] [address] Hemoglobin (Bld) [Mass/Vol] 14.3 g/dL Normal 12.0 - 16.0 [facility] [place] Comment on above: Performed By: #### 2 76792 ####[address] [address] Lymph # 2.89 x10EE3/UL High 0.80 - 2.80 [facility] [place] Comment on above: Performed By: #### 2 62094 ####[facility] [place],[address] [place] [address] 84137 Lymphocytes/100 WBC (Bld) 25.5 % Normal 20.0 - 45.0 [facility] [place] Comment on above: Performed By: #### 2 84147 ####[facility] [place],[address] [place] [address] MANUAL DIFF N/A Normal [facility] [place] Comment on above: Performed By: #### 2 20541 ####[facility] [place],[address] [place] [address] MCH (RBC) [Entitic mass] 34 pg High 27 - 33 [facility] [place] Comment on above: Performed By: #### 2 35598 ####[facility] [place],[address] [place] [address] MCHC 35 X10 3 Normal 32 - 36 [facility] [place] Comment on above: Performed By: #### 2 54126 ####[facility] [place],[address] [place] [address] MCV (RBC) [Entitic vol] 97 fL Normal 80 - 99 [facility] Comment on above: Performed By: #### 2 59281 ####[facility] [place],[address] [place] [address] Moca # 0.95 x10EE3/UL Normal 0.20 - 1.00 [facility] [place] Comment on above: Performed By: #### 2 27969 ####[facility] [place],[address] [place] [address] MONOS % 8.4 % Normal 0.0 - 10.0 [facility] [place] Comment on above: Performed By: #### 2 12153 ####[facility] [place],[address] [place] [address] Morphology Efra (Bld) [Interp] N/A Normal [facility] [place] Comment on above: Performed By: #### 2 93763 ####[facility] [place],[address] [place] [address] Neut # 7.19 x10EE3/UL High 1.50 - 7.10 [facility] [place] Comment on above: Performed By: #### 2 62809 ####[facility] [place],[address],[place] [address] Neutrophils/100 WBC (Bld) 63.5 % Normal 46.0 - 76.0 [facility] [place] Comment on above: Performed By: #### 2 06856 ####[facility] [place],[address] [place] [address] PLATELET 406 x10EE3/UL Normal 150 - 450 [facility] [place] Comment on above: Performed By: #### 2 36492 ####[facility] [place],[address] [place] [address] 32527 Platelet mean volume (Bld) [Entitic vol] 7.2 fL Normal 6.6 - 10.5 [facility] [place] Comment on above: Result Comment: AUTO MATED DIFFERENTIAL Performed By: #### 2 63093 ####[facility] [place],[address] [place] [address] 36286 RBC 4.20 x 10EE6/UL Normal 4.10 - 5.30 [facility] [place] Comment on above: Performed By: #### 2 76372 ####[facility] [place],[address] [place] [address] 37761 WBC 11.3 x 10EE3/UL High 4.5 - 10.8 [facility] [place] Comment on above: Performed By: #### 2 01209 ####[facility] [place],[address] [place] [address] CMP with eGFRon 04-01-2025 AGE 34 years Normal [facility] [place] Comment on above: Performed By: #### 2 50812 ####[facility] [place],[address] [place] [address]40 Albumin [Mass/Vol] 3.6 g/dL Normal 3.4 - 5.0 [facility] [place] Comment on above: Performed By: #### 2 50290 ####[facility] [place],[address] [place] [address] Albumin/Globulin [Mass ratio] 1.1 {ratio} Normal 0.9 - 1.6 [facility] [place] Comment on above: Performed By: #### 2 83332 ####[facility] [place],[address] [place] [address]99 ALK PHOS 79 U/L Normal 46 - 116 [facility] [place] Comment on above: Performed By: #### 2 80626 ####[facility] [place],[address] [place] [address] ALT [Catalytic activity/Vol] 16 U/L Normal 16 - 63 [facility] [place] Comment on above: Performed By: #### 2 19569 ####[facility] [place],[address] [place] [address] 57281 Anion gap [Moles/Vol] 14 mmol/L Normal 10 - 20 [facility] Comment on above: Performed By: #### 2 02158 ####[facility] [place],[address] [place] [address] 39008 AST [Catalytic activity/Vol] 16 U/L Normal 13 - 39 [facility] [place] Comment on above: Performed By: #### 2 13412 ####[facility] [place],[address] [place] [address]7773 B/C RATIO 11 ratio Normal 0 - 30 [facility] [place] Comment on above: Performed By: #### 2 08417 ####[facility] [place],[address] [place] [address] Bilirubin [Mass/Vol] 0.3 mg/dL Normal 0.2 - 1.0 [facility] [place] Comment on above: Performed By: #### 2 82883 ####[facility] [place],[address] [place] [address] 39124 Calcium [Mass/Vol] 8.9 mg/dL Normal 8.5 - 10.1 [facility] [place] Comment on above: Performed By: #### 2 47498 ####[facility] [place],[address] [place] [address] 95299 Chloride [Moles/Vol] 105 mmol/L Normal 98 - 107 [facility] [place] Comment on above: Performed By: #### 2 13695 ####[facility] [place],[address] [place] [address] 11071 CMP with eGFR Normal [facility] [place] Comment on above: Result Comment: COMP REHENSIVE METABOLIC PANEL Performed By: #### 2 55370 ####[facility] [place],[address] [place] [address] 35962 CO2 [Moles/Vol] 26.8 mmol/L Normal 21.0 - 32.0 [facility] [place] Comment on above: Performed By: #### 2 55389 ####[facility] [place],[address] [place] [address]645 Creatinine [Mass/Vol] 1.04 mg/dL High 0.55 - 1.02 [facility] Comment on above: Performed By: #### 2 75213 ####[facility] [place],[address] [place] [address] 79703 eGFR 60 ML/MINUTE Normal 60 - 999 [facility] [place] Comment on above: Performed By: #### 2 67802 ####[facility] [place],[address] [place] [address] 89165 GFR/1.73 sq M.predicted among non-blacks MDRD (S/P/Bld) [Vol rate/Area] mL/min/{1.73_m2} Normal 60 - 999 [facility] [place] Comment on above: Result Comment: ACCO RDING TO THE NATIONAL KIDNEY DISEASE EDUCATION PROGRAM(NKDE), A NORMAL eGFRIS A VALUE GREATER THAN OR EQUAL TO 60 ML/MIN/1.73 SQ METERS.CHRONIC KIDNEY DISEASE: <60mL/MIN/1.73 SQ METERSKIDNEY FAILURE: <15mL/MIN/1.73 SQ METERSTHIS TEST SHOULD ONLY BE USED FOR PATIENTS 18 YEARS OF AGE AND OLDER. Performed By: #### 2 60589 ####[facility] [place],[address] [place] [address]13 Globulin (S) [Mass/Vol] 3.2 g/dL Normal 1.5 - 3.8 [facility] Comment on above: Performed By: #### 2 75944 ####[facility] [place],[address] [place] [address] Glucose [Mass/Vol] 91 mg/dL Normal 74 - 106 [facility] [place] Comment on above: Performed By: #### 2 75158 ####[facility] [place],[address] [place] [address] Potassium [Moles/Vol] 4.1 mmol/L Normal 3.5 - 5.1 [facility] Comment on above: Performed By: #### 2 37061 ####[facility] [place],[address] [place] [address] 87261 Protein [Mass/Vol] 6.8 g/dL Normal 6.4 - 8.2 [facility] [place] Comment on above: Performed By: #### 2 87952 ####[facility] [place],[address] [place] [address] 24464 Sodium [Moles/Vol] 142 mmol/L Normal 136 - 145 [facility] [place] Comment on above: Performed By: #### 2 58772 ####[facility] [place],[address] [place] [address] 87548 Urea nitrogen [Mass/Vol] 11 mg/dL Normal 7 - 18 [facility] [place] Comment on above: Performed By: #### 2 47689 ####[facility] [place],[address] [place] [address]24 CORONAVIRUS (SARS) ANTIGEN T ESTon 04-01-2025 EXTERNAL QC DONE? YES Normal [facility] [place] Comment on above: Performed By: #### 2 85339 ####[facility] [place],[address] [place] [address] INTERNAL CONTROL PASS Normal [facility] [place] Comment on above: Performed By: #### 2 27703 ####[facility] [place],[address] [place] [address]606 SARS ANTIGEN Negative Normal NORMAL: NEGATIVE [facility] [place] Comment on above: Performed By: #### 2 98584 ####[facility] [place],[address] [place] [address] SEND TO ? NO Normal [facility] [place] Comment on above: Result Comment: SARS -CoV-2THIS TEST IS BEING USED UNDER THE FDA EUA PROCEDURE. THIS ASSAY HAS BEENVALIDATED AT [facility] FOR USE WITH NASAL AND NASOPHARYNGEAL SWABSPECIMENS.INTERPRETIVE [...] BY HEALTHCARE PROVIDERS IN CONSULTATION WITH PUBLIC HEALTHAUTHORITIES. Performed By: #### 2 01407 ####[facility] [place],[address] [place] [address]1993 ED MED ADMINISTRATION DETAIL on 04-01-2025 ED MED ADMINISTRATION DETAIL Normal [facility] [place] ED NURSES CLINICAL NOTEon ED NURSES CLINICAL NOTE Normal [facility] ED ORDER SHEET (CPOE ONLY)on 04-01-2025 ED ORDER SHEET (CPOE ONLY) Normal [facility] [place] ED PHYSICIAN CLINICAL REPORT on 04-01-2025 ED PHYSICIAN CLINICAL REPORT Normal [facility] [place] ED SUPER BILLon 04-01-2025 ED SUPER BILL Normal [facility] [place] ED VISIT SUMMARYon ED VISIT SUMMARY Normal [facility] [place] ED VITALS FLOW SHEETon 04-01 ED VITALS FLOW SHEET Normal [facility] [place] INFLUENZA VIRUS RAPID A/Bon 04-01-2025 INFLUENZA VIRUS RAPID A/B Normal [facility] [place] Comment on above: Performed By: #### 2 10860 ####[facility] [place],[address] [place] [address] LACTATEon 04-01-2025 Lactate [Moles/Vol] 1.7 mmol/L Normal 0.4 - 2.0 [facility] [place] Comment on above: Performed By: #### 2 92116 ####[facility] [place],[address] [place], [place] [id number] LIPASEon 04-01-2025 Lipase [Catalytic activity/Vol] 169.0 U/L High 15.0 - 78.0 [facility] [place] Comment on above: Result Comment: *PLE ASE NOTE THAT RANGES FOR LIPASE HAVE CHANGED OF 10/31/23 DUE TO AN ASSAYUPDATE BY THE HUMANITIES INSTRUCTOR.THE NEW ASSAY RANGE IS 6-250 U/L, WITH A REFERENCERANGE OF 16-77 U/L. Performed By: #### 2 45801 ####[facility] [place],[address] [place] [address] SERUM QUALon 04-01 EXTERNAL QC DONE? YES Normal [facility] [place] Comment on above: Performed By: #### 2 58512 ####[facility] [place],[address] [place] [address] INTERNAL QC PASS Normal [facility] [place] Comment on above: Performed By: #### 2 24675 ####[facility] [place],[address] [place] [address]32 SER Negative Normal NEGATIVE [facility] [place] Comment on above: Performed By: #### 2 33669 ####[facility] [place],[address] [place] [address]27 TROPONINon 04-01-2025 HS TROPONIN 4.1 pg/mL Normal 0.0 - 51.4 [facility] [place] Comment on above: Performed By: #### 2 75552 ####[facility] [place],[address] [place] [address]41 URINALYSISon 04-01-2025 Amorphous NONE Normal [facility] [place] Comment on above: Performed By: #### 2 33975 ####[facility] [place],[address] [place] [address] 06278 Bacteria NONE Normal [facility] [place] Comment on above: Performed By: #### 2 51305 ####[facility] [place],[address] [place] [address]802 Bilirubin Ql (U) Negative Normal NORMAL: NEGATIVE [facility] [place] Comment on above: Performed By: #### 2 95749 ####[facility] [place],[address] [place] [address] 72379 Casts NONE Normal [facility] [place] Comment on above: Performed By: #### 2 24191 ####[facility] [place],[address] [place] [address] Clarity (U) clear Normal NORMAL: CLEAR [facility] [place] Comment on above: Performed By: #### 2 57662 ####[facility] [place],[address] [place] [address]603 Color (U) yellow Normal NORMAL: YELLOW [facility] [place] Comment on above: Performed By: #### 2 65796 ####[facility] [place],[address] [place] [address] 01046 Crystals LM Nom (Urine sed) NONE Normal [facility] [place] Comment on above: Performed By: #### 2 41475 ####[facility] [place],[address] [place] [address],[facility] [address] Epi Cells OCC Normal [facility] [place] Comment on above: Performed By: #### 2 71740 ####[facility] [place],[address] [place] [address]173 Glucose Ql (U) NORM Normal NORMAL: NORMAL [facility] [place] Comment on above: Performed By: #### 2 11542 ####[facility] [place],[address] [place] [address] 44589 Hemoglobin Ql (U) 10 Abnormal NORMAL: NEGATIVE [facility] [place] Comment on above: Performed By: #### 2 48690 ####[facility] [place],[address] [place] [address] 20146 Ketone Negative Normal NORMAL: NEGATIVE [facility] [place] Comment on above: Performed By: #### 2 84985 ####[facility] [place],[address] [place] [address] 51844 Leukocytes 25 Abnormal NORMAL: NEGATIVE [facility] [place] Comment on above: Performed By: #### 2 07401 ####[facility] [place],[address] [place] [address] 02809 Mucous NONE Normal [facility] [place] Comment on above: Performed By: #### 2 [id number] ####[facility] [place],[address] [place] [address] 34075 Nitrite Ql (U) Negative Normal NORMAL: NEGATIVE [facility] [place] Comment on above: Performed By: #### 2 43850 ####[facility] [place],[address] [place] [address] 20182 pH (U) 6.5 [pH] Normal NORMAL: 5.0-8.0 [facility] [place] Comment on above: Performed By: #### 2 58171 ####[facility] [place],[address] [place] [address] 57909 Protein Ql (U) 15 Abnormal NORMAL: NEGATIVE [facility] [place] Comment on above: Performed By: #### 2 53159 ####[facility] [place],[address] [place] [address] 29007 Rbc NONE Normal 0-3/hpf [facility] [place] Comment on above: Performed By: #### 2 94011 ####[facility] [place],[address] [place] [address] Sp [place] 1.015 Normal NORMAL: 1.010-1.030 [facility] [place] Comment on above: Performed By: #### 2 74211 ####[facility] [place],[address] [place] [address] Specimen Type R Normal [facility] [place] Comment on above: Performed By: #### 2 28624 ####[facility] [place],[address] [place] [address] Urinalysis dipstick W Reflex Microscopic panel (U) SEE BELOW Normal [facility] [place] Comment on above: Result Comment: MICR OSCOPIC Performed By: #### 2 77631 ####[facility] [place],[address] [place] [address] Urobilinog NORM Normal NORMAL: NORMAL [facility] [place] Comment on above: Performed By: #### 2 23002 ####[facility] [place],[address] [place], [place] [id number] Wbc 1-5 Normal 0-5/hpf [facility] [place] Comment on above: Performed By: #### 2 81266 ####[facility] [place],[address] [place], [place] [id number] Yeast NONE Normal [facility] [place] Comment on above: Performed By: #### 2 67950 ####[facility] [place],[address] [place], [place] [id number] URINE CULTURE [CCL]on 2024 Bacteria identified Cx Nom (U) Normal [facility] [place] Comment on above: Performed By: #### 2 47198 ####[facility] [place],[address] [place], [place] [id number] C-REACTIVE PROTEINon 025 CRP 0.15 mg/dl Normal 0.00 - 0.90 [facility] [place] Comment on above: Performed By: #### 2 91568 ####[facility] [place],[address] [place] [address] CBC + DIFFon 03-23-2025 Baso # 0.07 x10EE3/UL Normal 0.00 - 0.10 [facility] [place] Comment on above: Performed By: #### 2 36809 ####[facility] [place],[address] [place] [address] Basophils/100 WBC (Bld) 0.5 % Normal 0.0 - 2.0 [facility] Comment on above: Performed By: #### 2 84576 ####[facility] [place],[address] [place] [address] CBC + DIFF Normal [facility] [place] Comment on above: Result Comment: CBC- COMPLETE BLOOD COUNT Performed By: #### 2 46931 ####[facility] [place],[address] [place] [address] CELL COUNT 100 Normal [facility] [place] Comment on above: Performed By: #### 2 95195 ####[facility] [place],[address] [place] [address] EO # 0.39 x10EE3/UL Normal 0.00 - 0.50 [facility] [place] Comment on above: Performed By: #### 2 10566 ####[facility] [place],[address] [place] [address] Eosinophils/100 WBC (Bld) 2.6 % Normal 0.0 - 7.0 [facility] [place] Comment on above: Performed By: #### 2 74070 ####[facility] [place],[address] [place] [address] Erythrocyte distribution width (RBC) [Ratio] 13.8 % Normal 12.0 - 15.6 [facility] [place] Comment on above: Performed By: #### 2 99799 ####[facility] [place],[address] [place] [address] Hematocrit (Bld) [Volume fraction] 44.3 % Normal 34.0 - 46.0 [facility] [place] Comment on above: Performed By: #### 2 14336 ####[facility] [place],[address] [place], [place] [id number] Hemoglobin (Bld) [Mass/Vol] 15.4 g/dL Normal 12.0 - 16.0 [facility] [place] Comment on above: Performed By: #### 2 07963 ####[facility] [place],[address] [place] [address] Lymph # 5.14 x10EE3/UL High 0.80 - 2.80 [facility] [place] Comment on above: Performed By: #### 2 43892 ####[facility] [place],[address] [place], [place] [id number] Lymphocytes/100 WBC (Bld) 34.4 % Normal 20.0 - 45.0 [facility] [place] Comment on above: Performed By: #### 2 08420 ####[facility] [place],[address] [place], [place] [id number] Lymphocytes/100 WBC (Bld) 42 % Normal 20 - 45 [facility] [place] Comment on above: Performed By: #### 2 51889 ####[facility] [place],[address] [place] [address] MANUAL DIFF SEE BELOW Normal [facility] [place] Comment on above: Performed By: #### 2 04248 ####[facility] [place],[address] [place], [place] [id number] MCH (RBC) [Entitic mass] 34 pg High 27 - 33 [facility] [place] Comment on above: Performed By: #### 2 60574 ####[place] [id number] MCHC 35 X10 3 Normal 32 - 36 [facility] [place] Comment on above: Performed By: #### 2 10314 ####[facility] [place],[address],[place] [address] MCV (RBC) [Entitic vol] 97 fL Normal 80 - 99 [facility] Comment on above: Performed By: #### 2 35981 ####[facility] [place],[address] [place] [address] 37884 Moca # 1.37 x10EE3/UL High 0.20 - 1.00 [facility] [place] Comment on above: Performed By: #### 2 88607 ####[facility] [place],[address] [place] [address] 59569 MONOS 8 % Normal 0 - 10 [facility] [place] Comment on above: Performed By: #### 2 90379 ####[facility] [place],[address] [place] [address] 23971 MONOS % 9.2 % Normal 0.0 - 10.0 [facility] [place] Comment on above: Performed By: #### 2 64182 ####[facility] [place],[address] [place], [place] [id number] Morphology Efra (Bld) [Interp] SEE BELOW Normal [facility] [place] Comment on above: Performed By: #### 2 85816 ####[facility] [place],[address] [place] [address] 67194 Neut # 7.98 x10EE3/UL High 1.50 - 7.10 [facility] [place] Comment on above: Performed By: #### 2 02029 ####[facility] [place],[address] [place], [place] [id number] Neutrophils/100 WBC (Bld) 53.4 % Normal 46.0 - 76.0 [facility] [place] Comment on above: Performed By: #### 2 17970 ####[address] [address] PLATELET 512 x10EE3/UL High 150 - 450 [facility] [place] Comment on above: Performed By: #### 2 46057 ####[facility] [place],[address] [place] [address] 12763 Platelet mean volume (Bld) [Entitic vol] 7.8 fL Normal 6.6 - 10.5 [facility] [place] Comment on above: Result Comment: AUTO MATED DIFFERENTIAL Performed By: #### 2 35089 ####[facility] [place],[address] [place] [address] 89146 PLT EST INCREASED Normal [facility] [place] Comment on above: Performed By: #### 2 95846 ####[facility] [place],[address] [place] [address] 73755 RBC 4.59 x 10EE6/UL Normal 4.10 - 5.30 [facility] [place] Comment on above: Performed By: #### 2 16916 ####[facility] [place],[address] [place] [address] 87617 SEGS 50 % Normal 46 - 76 [facility] [place] Comment on above: Performed By: #### 2 33867 ####[facility] [place],[address] [place] [address] 71829 WBC 15.0 x 10EE3/UL High 4.5 - 10.8 [facility] [place] Comment on above: Performed By: #### 2 70762 ####[facility] [place],[address] [place] [address] 46611 Other RBC MORPH NORMAL Normal [facility] [place] Comment on above: Performed By: #### 2 34414 ####[facility] [place],[address] [place] [address] 21525 CMP with eGFRon 03-23-2025 AGE 34 years Normal [facility] [place] Comment on above: Performed By: #### 2 41808 ####[facility] [place],[address] [place] [address] 52755 Albumin [Mass/Vol] 4.0 g/dL Normal 3.4 - 5.0 [facility] [place] Comment on above: Performed By: #### 2 97092 ####[facility] [place],[address] [place] [address] 12717 Albumin/Globulin [Mass ratio] 1.1 {ratio} Normal 0.9 - 1.6 [facility] [place] Comment on above: Performed By: #### 2 59693 ####[facility] [place],[address] [place] [address] 19150 ALK PHOS 88 U/L Normal 46 - 116 [facility] [place] Comment on above: Performed By: #### 2 47599 ####[facility] [place],[address] [place] [address] 63194 ALT [Catalytic activity/Vol] 14 U/L Low 16 - 63 [facility] [place] Comment on above: Performed By: #### 2 48028 ####[facility] [place],[address] [place] [address] 63299 Anion gap [Moles/Vol] 14 mmol/L Normal 10 - 20 [facility] Comment on above: Performed By: #### 2 45502 ####[facility] [place],[address] [place] [address] 85695 AST [Catalytic activity/Vol] 17 U/L Normal 13 - 39 [facility] [place] Comment on above: Performed By: #### 2 96986 ####[facility] [place],[address] [place] [address] 15095 B/C RATIO 8 ratio Normal 0 - 30 [facility] [place] Comment on above: Performed By: #### 2 96712 ####[facility] [place],[address] [place] [address] 21330 Bilirubin [Mass/Vol] 0.4 mg/dL Normal 0.2 - 1.0 [facility] [place] Comment on above: Performed By: #### 2 12867 ####[facility] [place],[address] [place] [address] 20337 Calcium [Mass/Vol] 9.3 mg/dL Normal 8.5 - 10.1 [facility] [place] Comment on above: Performed By: #### 2 07005 ####[facility] [place],[address] [place] [address] 99295 Chloride [Moles/Vol] 103 mmol/L Normal 98 - 107 [facility] [place] Comment on above: Performed By: #### 2 68641 ####[facility] [place],[address] [place] [address] 49015 CMP with eGFR Normal [facility] [place] Comment on above: Result Comment: COMP REHENSIVE METABOLIC PANEL Performed By: #### 2 03525 ####[facility] [place],[address] [place] [address] 18278 CO2 [Moles/Vol] 25.1 mmol/L Normal 21.0 - 32.0 [facility] [place] Comment on above: Performed By: #### 2 06975 ####[facility] [place],[address] [place] [address] 04326 Creatinine [Mass/Vol] 1.06 mg/dL High 0.55 - 1.02 [facility] Comment on above: Performed By: #### 2 05758 ####[facility] [place],[address] [place] [address] 10026 eGFR 59 ML/MINUTE Low 60 - 999 [facility] [place] Comment on above: Performed By: #### 2 80282 ####[facility] [place],[address] [place] [address] 89525 GFR/1.73 sq M.predicted among non-blacks MDRD (S/P/Bld) [Vol rate/Area] mL/min/{1.73_m2} Normal 60 - 999 [facility] [place] Comment on above: Result Comment: ACCO RDING TO THE NATIONAL KIDNEY DISEASE EDUCATION PROGRAM(NKDE), A NORMAL eGFRIS A VALUE GREATER THAN OR EQUAL TO 60 ML/MIN/1.73 SQ METERS.CHRONIC KIDNEY DISEASE: <60mL/MIN/1.73 SQ METERSKIDNEY FAILURE: <15mL/MIN/1.73 SQ METERSTHIS TEST SHOULD ONLY BE USED FOR PATIENTS 18 YEARS OF AGE AND OLDER. Performed By: #### 2 34649 ####[facility] [place],[address] [place] [address] 72839 Globulin (S) [Mass/Vol] 3.6 g/dL Normal 1.5 - 3.8 [facility] Comment on above: Performed By: #### 2 87478 ####[facility] [place],[address] [place] [address] 07684 Glucose [Mass/Vol] 106 mg/dL Normal 74 - 106 [facility] [place] Comment on above: Performed By: #### 2 43280 ####[facility] [place],[address] [place] [address] 24682 Potassium [Moles/Vol] 3.3 mmol/L Low 3.5 - 5.1 [facility] Comment on above: Performed By: #### 2 25544 ####[facility] [place],[address] [place] [address] 66339 Protein [Mass/Vol] 7.6 g/dL Normal 6.4 - 8.2 [facility] [place] Comment on above: Performed By: #### 2 33932 ####[facility] [place],[address] [place] [address] 09657 Sodium [Moles/Vol] 139 mmol/L Normal 136 - 145 [facility] [place] Comment on above: Performed By: #### 2 68036 ####[facility] [place],[address] [place] [address] 31318 Urea nitrogen [Mass/Vol] 8 mg/dL Normal 7 - 18 [facility] [place] Comment on above: Performed By: #### 2 41817 ####[facility] [place],[address] [place] [address] 32623 ED MED ADMINISTRATION DETAIL on 03-23-2025 ED MED ADMINISTRATION DETAIL Normal [facility] [place] ED NURSES CLINICAL NOTEon ED NURSES CLINICAL NOTE Normal [facility] ED ORDER SHEET (CPOE ONLY)on 03-23-2025 ED ORDER SHEET (CPOE ONLY) Normal [facility] [place] ED PHYSICIAN CLINICAL REPORT on 03-23-2025 ED PHYSICIAN CLINICAL REPORT Normal [facility] [place] ED SUPER BILLon 03-23-2025 ED SUPER BILL Normal [facility] [place] ED VISIT SUMMARYon ED VISIT SUMMARY Normal [facility] [place] ED VITALS FLOW SHEETon 03-23 ED VITALS FLOW SHEET Normal [facility] [place] URINALYSISon 03-23-2025 Amorphous NONE Normal [facility] [place] Comment on above: Performed By: #### 2 47530 ####[facility] [place],[address] [place] [address] 85957 Bacteria 3+ Normal [facility] [place] Comment on above: Performed By: #### 2 88230 ####[facility] [place],[address] [place] [address] 58531 Bilirubin Ql (U) Negative Normal NORMAL: NEGATIVE [facility] [place] Comment on above: Performed By: #### 2 32002 ####[facility] [place],[address] [place] [address] 14215 Casts NONE Normal [facility] [place] Comment on above: Performed By: #### 2 57995 ####[facility] [place],[address] [place], [place] [id number] Clarity (U) sl.cloudy Normal NORMAL: CLEAR [facility] [place] Comment on above: Performed By: #### 2 99936 ####[facility] [place],[address] [place] [address] 59148 Color (U) yellow Normal NORMAL: YELLOW [facility] [place] Comment on above: Performed By: #### 2 18874 ####[facility] [place],[address] [place] [address] 63138 Crystals LM Nom (Urine sed) SEE BELOW Normal [facility] [place] Comment on above: Performed By: #### 2 91423 ####[facility] [place],[address] [place] [address] 38457 Epi Cells NONE Normal [facility] [place] Comment on above: Performed By: #### 2 47474 ####[facility] [place],[address] [place] [address] 75317 Glucose Ql (U) NORM Normal NORMAL: NORMAL [facility] [place] Comment on above: Performed By: #### 2 56663 ####[facility] [place],[address] [place] [address] 34941 Hemoglobin Ql (U) 250 Abnormal NORMAL: NEGATIVE [facility] [place] Comment on above: Performed By: #### 2 16194 ####[facility] [place],[address] [place] [address] 58294 Ketone Negative Normal NORMAL: NEGATIVE [facility] [place] Comment on above: Performed By: #### 2 07989 ####[facility] [place],[address] [place] [address] 01100 Leukocytes 500 Abnormal NORMAL: NEGATIVE [facility] [place] Comment on above: Performed By: #### 2 88834 ####[facility] [place],[address] [place] [address] 49176 Mucous NONE Normal [facility] [place] Comment on above: Performed By: #### 2 27271 ####[facility] [place],[address] [place] [address] 32928 Nitrite Ql (U) Positive Normal NORMAL: NEGATIVE [facility] [place] Comment on above: Performed By: #### 2 36318 ####[facility] [place],[address] [place] [address] 37892 pH (U) 8 [pH] Normal NORMAL: 5.0-8.0 [facility] [place] Comment on above: Performed By: #### 2 71226 ####[facility] [place],[address] [place] [address] 12399 Protein Ql (U) 500 Abnormal NORMAL: NEGATIVE [facility] [place] Comment on above: Performed By: #### 2 35923 ####[facility] [place],[address] [place] [address] 88060 Rbc 15-20 Normal 0-3/hpf [facility] [place] Comment on above: Performed By: #### 2 44426 ####[facility] [place],[address] [place] [address] 75898 Sp [place] 1.015 Normal NORMAL: 1.010-1.030 [facility] [place] Comment on above: Performed By: #### 2 54137 ####[facility] [place],[address] [place] [address] Specimen Type R Normal [facility] [place] Comment on above: Performed By: #### 2 78898 ####[facility] [place],[address] [place] [address] Triple Phos 1+ Normal NORMAL: NONE [facility] [place] Comment on above: Performed By: #### 2 53225 ####[facility] [place],[address] [place] [address] Urinalysis dipstick W Reflex Microscopic panel (U) SEE BELOW Normal [facility] [place] Comment on above: Result Comment: MICR OSCOPIC Performed By: #### 2 09574 ####[facility] [place],[address] [place] [address] Urobilinog NORM Normal NORMAL: NORMAL [facility] [place] Comment on above: Performed By: #### 2 28275 ####[facility] [place],[address] [place] [address] Wbc 26-50 Normal 0-5/hpf [facility] [place] Comment on above: Performed By: #### [id number] ####[facility] [place],[address] [place] [address] Yeast NONE Normal [facility] [place] Comment on above: Performed By: #### [id number] ####[facility] [place],[address] [place] [address] .Auto Diffon 03-15-2025 Basophil, Absolute 0.1 10 3/mcL Normal 0.0-0.3 [facility] Comment on above: Performed By: #### G FR, ANEU, CMP, CBC, ADMACEY, W, LAC ####[address] [address] Basophils/100 WBC (Bld) 0.7 % Normal 0.0-2.5 [facility] Comment on above: Performed By: #### G FR, ANEU, CMP, CBC, ADMACEY, MDW, LAC ####[address] [place] [address] Eosinophil, Absolute 0.2 10 3/mcL Normal 0.0-0.7 [facility] Comment on above: Performed By: #### G FR, ANEU, CMP, CBC, ADIFF, MDW, LAC ####[address] [address] Eosinophils/100 WBC (Bld) 2.0 % Normal 0.0-6.0 [facility] Comment on above: Performed By: #### G FR, ANEU, CMP, CBC, ADIFF, MDW, LAC ####[address] [address] Lymphocyte, Absolute 1.9 10 3/mcL Normal 0.9-4.3 [facility] Comment on above: Performed By: #### G FR, ANEU, CMP, CBC, ADIFF, MDW, LAC ####[address] [address] Lymphocytes/100 WBC (Bld) 22.2 % Normal 20.0-40.0 [facility] Comment on above: Performed By: #### G FR, ANEU, CMP, CBC, ADIFF, MDW, LAC ####[address] [address] Monocyte, Absolute 1.0 10 3/mcL Normal 0.1-1.4 [facility] Comment on above: Performed By: #### G FR, ANEU, CMP, CBC, ADIFF, MDW, LAC ####[address] [address] Monocytes/100 WBC (Bld) 11.4 % Normal 2.0-13.0 [facility] Comment on above: Performed By: #### G FR, ANEU, CMP, CBC, ADIFF, MDW, LAC ####[address] [address] Neutrophils/100 WBC (Bld) 63.7 % Normal 50.0-75.0 [facility] Comment on above: Performed By: #### G FR, ANEU, CMP, CBC, ADIFF, MDW, LAC ####[address] [address] .GFRon 03-15-2025 Estimated Glomerular Filtration Rate 98 ml/min/1.73sqm Normal [facility] Comment on above: Result Comment: Stag es of Chronic Kidney Disease (CKD)Stage Description eGFR(ml/min/1.73 sq.m.)CKD 1 Normal kidney function or >=90 normal kindney function with possible kidney damage (ex. Proteinuria)CKD 2 Kidney damage with mild loss 60-89 of kidney functionCKD 3a Mild to moderate loss of kidney 45-59 functionCKD 3b Moderate to severe loss of 30-44 of kindey function CKD 4 Severe loss of kidney function 15-29CKD 5 Kidney failure <15Note: (go live 2024) the eGFR calculation was updated to the KD-EPI creatinine equation without a race factor to calculate theeGFR results. Performed By: #### G FR, ANEU, CMP, CBC, ADIFF, MDW, LAC ####[place] [address] .MDWon 03-15-2025 Monocyte Distribution Width 19.00 Normal 0.00-20.00 [facility] Comment on above: Result Comment: For ED adult patients suspected of sepsis, MDW<=20.0 does not rule out sepsis or risk of sepsis Performed By: #### G FR, ANEU, CMP, CBC, ADMACEY, MDW, LAC ####[place] [address] .NEUABSon 03-15-2025 Neutrophil, Absolute 5.5 10 3/mcL Normal 2.3-8.1 [facility] Comment on above: Performed By: #### G FR, ANEU, CMP, CBC, ADMACEY, MDW, LAC ####[place] [address] CBCon 03-15-2025 Erythrocyte distribution width (RBC) [Ratio] 14.7 % Normal 11.5-15.5 [facility] Comment on above: Performed By: #### G FR, ANEU, CMP, CBC, ADIFF, MDW, LAC ####[place] [address] Hematocrit (Bld) [Volume fraction] 38.6 % Normal 34.0-46.0 [facility] Comment on above: Performed By: #### G FR, ANEU, CMP, CBC, ADIFF, MDW, LAC ####[place] [address] Hgb 12.6 G/dL Normal 12.0-16.0 [facility] Comment on above: Performed By: #### G FR, ANEU, CMP, CBC, ADIFF, MDW, LAC ####[place] [address] MCH (RBC) [Entitic mass] 31.4 pg Normal 27.0-33.0 [facility] Comment on above: Performed By: #### G FR, ANEU, CMP, CBC, ADIFF, MDW, LAC ####[place] [address] MCHC 32.5 G/dL Normal 32.0-36.0 [facility] Comment on above: Performed By: #### G FR, ANEU, CMP, CBC, ADIFF, MDW, LAC ####[place] [address] MCV (RBC) [Entitic vol] 96.7 fL Normal 80.0-99.0 [facility] Comment on above: Performed By: #### G FR, ANEU, CMP, CBC, ADIFF, MDW, LAC ####[place] [address] Platelet 294 10 3/mcL Normal 150-450 [facility] Comment on above: Performed By: #### G FR, ANEU, CMP, CBC, ADIFF, MDW, LAC ####[place] [address] Platelet mean volume (Bld) [Entitic vol] 7.3 fL Normal 6.6-10.5 [facility] Comment on above: Performed By: #### G FR, ANEU, CMP, CBC, ADIFF, MDW, LAC ####[place] [address] RBC 4.00 10 6/mcL Low 4.10-5.30 [facility] Comment on above: Performed By: #### G FR, ANEU, CMP, CBC, ADIFF, MDW, LAC ####[place] [address] WBC 8.7 10 3/mcL Normal 4.5-10.8 [facility] Comment on above: Performed By: #### G FR, ANEU, CMP, CBC, ADIFF, MDW, LAC ####[place] [address] CMPon 03-15-2025 Albumin Level 4.0 G/dL Normal 3.2-4.8 [facility] Comment on above: Performed By: #### G FR, ANEU, CMP, CBC, ADIFF, MDW, LAC ####[place] [address] Albumin/Globulin [Mass ratio] 1.2 {ratio} Normal 0.9-1.6 [facility] Comment on above: Performed By: #### G FR, ANEU, CMP, CBC, ADIFF, MDW, LAC ####[place] [address] ALP [Catalytic activity/Vol] 72 U/L Normal 38-126 [facility] Comment on above: Performed By: #### G FR, ANEU, CMP, CBC, ADIFF, MDW, LAC ####[place] [address] ALT [Catalytic activity/Vol] 9 U/L Low 10-49 [facility] Comment on above: Performed By: #### G FR, ANEU, CMP, CBC, ADIFF, MDW, LAC ####[place] [address] AST [Catalytic activity/Vol] 19 U/L Normal 8-34 [facility] Comment on above: Performed By: #### G FR, ANEU, CMP, CBC, ADIFF, MDW, LAC ####[place] [address] Bili Total 0.30 mg/dL Normal 0.20-1.20 [facility] Comment on above: Result Comment: Use of this assay is not recommended for patients undergoing treatment with eltrombopag due to the potential for falsely elevated results. Performed By: #### G FR, ANEU, CMP, CBC, ADIFF, MDW, LAC ####[place] [address] BUN/Creatinine Ratio 7.5 ratio Low 10.0-22.0 [facility] Comment on above: Performed By: #### G FR, ANEU, CMP, CBC, ADIFF, MDW, LAC ####[place] [address] Calcium [Mass/Vol] 9.7 mg/dL Normal 8.7-10.4 [facility] Comment on above: Performed By: #### G FR, ANEU, CMP, CBC, ADIFF, MDW, LAC ####[place] [address] Chloride [Moles/Vol] 107 mmol/L Normal 98-110 [facility] Comment on above: Performed By: #### G FR, ANEU, CMP, CBC, ADIFF, MDW, LAC ####[place] [address] CO2 [Moles/Vol] 28 mmol/L Normal 22-32 [facility] Comment on above: Performed By: #### G FR, ANEU, CMP, CBC, ADIFF, MDW, LAC ####[place] [address] Creatinine [Mass/Vol] 0.80 mg/dL Normal 0.50-1.20 [facility] Comment on above: Result Comment: Test ing performed on Algisys analyzer using enzymatic creatinine methodology. Performed By: #### G FR, ANEU, CMP, CBC, ADIFF, MDW, LAC ####[place] [address] Electrolyte Balance 3.0 mEq/L Low 4.0-15.0 [facility] Comment on above: Performed By: #### G FR, ANEU, CMP, CBC, ADIFF, MDW, LAC ####[place] [id number] Globulin 3.3 G/dL Normal 2.5-4.2 [facility] Comment on above: Performed By: #### G FR, ANEU, CMP, CBC, ADMACEY, MDW, LAC ####[address] [address] Glucose [Mass/Vol] 101 mg/dL Normal 70-110 [facility] Comment on above: Performed By: #### G FR, ANEU, CMP, CBC, ADIFF, MDW, LAC ####[address] [address] Potassium [Moles/Vol] 3.8 mmol/L Normal 3.5-5.0 [facility] Comment on above: Result Comment: Spec imen slightly hemolyzed. Performed By: #### G FR, ANEU, CMP, CBC, ADMACEY, MDW, LAC ####[address] [address] Sodium [Moles/Vol] 138 mmol/L Normal 136-145 [facility] Comment on above: Performed By: #### G FR, ANEU, CMP, CBC, ADMACEY, MDW, LAC ####[address] [address] Total Protein 7.3 G/dL Normal 5.7-8.2 [facility] Comment on above: Performed By: #### G FR, ANEU, CMP, CBC, CHEN, MDW, LAC ####[address] [address] Urea nitrogen [Mass/Vol] 6.0 mg/dL Low 8.0-22.0 [facility] Comment on above: Performed By: #### G FR, ANEU, CMP, CBC, ADIFF, MDW, LAC ####[address] [address] [address] ABD/PELVIS W/ IV CONTRAST ONLYon 03-15-2025 CT ABD/PELVIS W/ IV CONTRAST ONLY Normal [facility] LABORATORYOrdered By: SYSTEM SYSTEM on 03-15-2025 Albumin BCP dye [Mass/Vol] 4.0 G/dL Normal 3.2 - 4.8 G/dL ADM SS Albumin/Globulin [Mass ratio] 1.2 {ratio} Normal 0.9 - 1.6 ratio ADM SS ALP [Catalytic activity/Vol] 72 U/L Normal 38 - 126 U/L ADM SS ALT No additional P-5'-P [Catalytic activity/Vol] 9 U/L Low 10 - 49 U/L ADM SS AST [Catalytic activity/Vol] 19 U/L Normal 8 - 34 U/L ADM SS Basophils (Bld) [#/Vol] 0.1 103/mcL Normal 0.0 - 0.3 10^3/mcL Workflow SS Basophils/100 WBC (Bld) 0.7 % Normal 0.0 - 2.5 % Workflow SS Bilirubin [Mass/Vol] 0.30 mg/dL Normal 0.20 - 1.20 mg/dL ADM SS Comment on above: Interpretive Data: U se of this assay is not recommended for patients undergoing treatment with eltrombopag due to the potential for falsely elevated results. Calcium [Mass/Vol] 9.7 mg/dL Normal 8.7 - 10. 4 mg/dL ADM SS Chloride [Moles/Vol] 107 mmol/L Normal 98 - 11 0 mEq/L ADM SS CO2 [Moles/Vol] 28 mmol/L Normal 22 - 32 mEq/L ADM SS Creatinine [Mass/Vol] 0.80 mg/dL Normal 0.50 - 1.20 mg/dL ADM SS Comment on above: Interpretive Data: T esting performed on Algisys analyzer using enzymatic creatinine methodology. Electrolyte Balance 3.0 mEq/L Low 4.0 - 15 .0 mEq/L ADM SS Eosinophils (Bld) [#/Vol] 0.2 103/mcL Normal 0.0 - 0.7 10^3/mcL Workflow SS Eosinophils/100 WBC (Bld) 2.0 % Normal 0.0 - 6.0 % Workflow SS Erythrocyte distribution width (RBC) [Ratio] 14.7 % Normal 11.5 - 15.5 % Workflow SS Estimated Glomerular Filtration Rate 98 ml/min/1.73sqm Invalid Interpretation Code ADM SS Comment [...] 3.3 G/dL Normal 2.5 - 4.2 G/dL AH ADM SS Glucose [Mass/Vol] 101 mg/dL Normal 70 - 110 mg/dL AH ADM SS Hematocrit (Bld) [Volume fraction] 38.6 % Normal 34.0 - 46.0 % AH Workflow SS Hemoglobin (Bld) [Mass/Vol] 12.6 G/dL Normal 12.0 - 16.0 G/dL AH Workflow SS Lactate [Moles/Vol] 1.3 mmol/L Normal 0.5 - 2. 2 mmol/L AH ADM SS Lymphocytes (Bld) [#/Vol] 1.9 103/mcL Normal 0.9 - 4.3 10^3/mcL AH Workflow SS Lymphocytes/100 WBC (Bld) 22.2 % Normal 20.0 - 40.0 % AH Workflow SS MCH (RBC) [Entitic mass] 31.4 pg Normal 27.0 - 33.0 pg AH Workflow SS MCHC 32.5 G/dL Normal 32.0 - 36.0 G/dL AH Workflow SS MCV (RBC) [Entitic vol] 96.7 fL Normal 80.0 - 99.0 fL AH [...] Nitrite Negative (03/15/25 4:07 PM) Normal Negative AH Auto Urine SS UA pH 6.5 (03/15/25 4:07 PM) Normal 5.0 - 8.0 Auto Urine SS UA Protein Trace mg/dL Normal Negative Auto Urine SS UA RBC 5-10 /HPF Invalid Interpretation Code 0-2 AH Auto Urine SS UA Spec Grav 1.020 (03/15/25 4:07 PM) Normal 1.006-1.029 Auto Urine SS UA Specimen Type Clean Catch (03/15/25 4:07 PM) Normal AH Auto Urine SS UA Squam Epithelial 3-5 /HPF Normal 0-20 Au to Urine SS UA Urobilinogen 1.0 E.U./dL Normal 0.2-1.0 Auto Urine SS WBC LM.HPF (Urine sed) [#/Area] 0-2 /HPF Normal 0-5 Auto Urine SS LACon 03-15-2025 Lactic Acid Lvl 1.3 mmol/L Normal 0.5-2.2 [facility] Comment on above: Performed By: #### G FR, ANEU, CMP, CBC, ADIFF, MDW, LAC ####[place] [address] UAon 03-15-2025 Color (U) Yellow Normal [facility] Comment on above: Performed By: #### U A, UAMIC ####[place] [address] Glucose (U) [Mass/Vol] Negative Normal [facility] Comment on above: Performed By: #### U A, UAMIC ####[place] [address] Ketones Ql (U) Trace Normal Neg-Trace [facility] Comment on above: Performed By: #### U A, UAMIC ####[place] [address] UA Appear Clear Normal Clear [facility] Comment on above: Performed By: #### U A, UAMIC ####[place] [address] UA Blood Small Abnormal Neg-Trace [facility] Comment on above: Performed By: #### U A, UAMIC ####[place] [address] UA Leuk Est Trace Normal Negative [facility] Comment on above: Performed By: #### U A, UAMIC ####[place] [address] UA Nitrite Negative Normal Negative [facility] Comment on above: Performed By: #### U A, UAMIC ####[place] [address] UA pH 6.5 Normal 5.0 - 8.0 [facility] Comment on above: Performed By: #### U A, UAMIC ####[place] [address] UA Protein Trace Normal Negative [facility] Comment on above: Performed By: #### U A, UAMIC ####[place] [address] UA Spec Grav 1.020 Normal 1.006-1.029 [facility] Comment on above: Performed By: #### U A, UAMIC ####[place] [address] UA Specimen Type Clean Catch Normal [facility] Comment on above: Performed By: #### U A, UAMIC ####[place] [address] UA Urobilinogen 1.0 E.U./dL Normal 0.2-1.0 [facility] Comment on above: Performed By: #### U A, UAMIC ####[place] [address] Urobilinogen (U) [Mass/Vol] Negative Normal Neg-Trace [facility] Comment on above: Performed By: #### U A, UAMIC ####[place] [address] UAMICon 03-15-2025 UA Bacteria Trace Abnormal Negative [facility] Comment on above: Performed By: #### U A, UAMIC ####[place] [address] UA Mucous 4+ /hpf Normal [facility] Comment on above: Performed By: #### U A, UAMIC ####[place] [address] UA RBC 5-10 Abnormal 0-2 [facility] Comment on above: Performed By: #### U A, UAMIC ####[place] [address] UA Squam Epithelial 3-5 Normal 0-20 [facility] Comment on above: Performed By: #### U A, UAMIC ####[place] [address] UA WBC 0-2 Normal 0-5 [facility] Comment on above: Performed By: #### U A, UAMIC ####[place] [address] .Auto Diffon 03-09-2025 Basophil, Absolute 0.1 10 3/mcL Normal 0.0-0.3 [facility] Comment on above: Performed By: #### A DIFF, ANEU, GFR, CBC, LAC, LIP, CMP, MDW ####[place] [address] Basophils/100 WBC (Bld) 1.0 % Normal 0.0-2.5 [facility] Comment on above: Performed By: #### A DIFF, ANEU, GFR, CBC, LAC, LIP, CMP, MDW ####[place] [address] Eosinophil, Absolute 0.2 10 3/mcL Normal 0.0-0.7 [facility] Comment on above: Performed By: #### A DIFF, ANEU, GFR, CBC, LAC, LIP, CMP, MDW ####[place] [address] Eosinophils/100 WBC (Bld) 2.5 % Normal 0.0-6.0 [facility] Comment on above: Performed By: #### A DIFF, ANEU, GFR, CBC, LAC, LIP, CMP, MDW ####[place] [address] Lymphocyte, Absolute 2.2 10 3/mcL Normal 0.9-4.3 [facility] Comment on above: Performed By: #### A DIFF, ANEU, GFR, CBC, LAC, LIP, CMP, MDW ####[address] [address] Lymphocytes/100 WBC (Bld) 24.2 % Normal 20.0-40.0 [facility] Comment on above: Performed By: #### A DIFF, ANEU, GFR, CBC, LAC, LIP, CMP, MDW ####[address] [address] Monocyte, Absolute 0.6 10 3/mcL Normal 0.1-1.4 [facility] Comment on above: Performed By: #### A DIFF, ANEU, GFR, CBC, LAC, LIP, CMP, MDW ####[address] [address] Monocytes/100 WBC (Bld) 6.8 % Normal 2.0-13.0 [facility] Comment on above: Performed By: #### A DIFF, ANEU, GFR, CBC, LAC, LIP, CMP, W ####[address] [address] Neutrophils/100 WBC (Bld) 65.5 % Normal 50.0-75.0 [facility] Comment on above: Performed By: #### A DIFF, ANEU, GFR, CBC, LAC, LIP, CMP, W ####[address] [address] .GFRon 03-09-2025 Estimated Glomerular Filtration Rate 88 ml/min/1.73sqm Normal [facility] Comment on above: Result Comment: Stag es of Chronic Kidney Disease (CKD)Stage Description eGFR(ml/min/1.73 sq.m.)CKD 1 Normal kidney function or >=90 normal kindney function with possible kidney damage (ex. Proteinuria)CKD 2 Kidney damage with mild loss 60-89 of kidney functionCKD 3a Mild to moderate loss of kidney 45-59 functionCKD 3b Moderate to severe loss of 30-44 of kindey function CKD 4 Severe loss of kidney function 15-29CKD 5 Kidney failure <15Note: (go live 2024) the eGFR calculation was updated to the KD-EPI creatinine equation without a race factor to calculate theeGFR results. Performed By: #### A DIFF, ANEU, GFR, CBC, LAC, LIP, CMP, MDW ####[place] [address] .MDWon 03-09-2025 Monocyte Distribution Width 14.95 Normal 0.00-20.00 [facility] Comment on above: Result Comment: For ED adult patients suspected of sepsis, MDW<=20.0 does not rule out sepsis or risk of sepsis Performed By: #### A DIFF, ANEU, GFR, CBC, LAC, LIP, CMP, MDW ####[place] [address] .NEUABSon 03-09-2025 Neutrophil, Absolute 5.9 10 3/mcL Normal 2.3-8.1 [facility] Comment on above: Performed By: #### A DIFF, ANEU, GFR, CBC, LAC, LIP, CMP, MDW ####[place] [address] CBCon 03-09-2025 Erythrocyte distribution width (RBC) [Ratio] 14.4 % Normal 11.5-15.5 [facility] Comment on above: Performed By: #### A DIFF, ANEU, GFR, CBC, LAC, LIP, CMP, MDW ####[place] [address] Hematocrit (Bld) [Volume fraction] 43.5 % Normal 34.0-46.0 [facility] Comment on above: Performed By: #### A DIFF, ANEU, GFR, CBC, LAC, LIP, CMP, MDW ####[place] [address] Hgb 14.6 G/dL Normal 12.0-16.0 [facility] Comment on above: Performed By: #### A DIFF, ANEU, GFR, CBC, LAC, LIP, CMP, MDW ####[place] [address] MCH (RBC) [Entitic mass] 32.5 pg Normal 27.0-33.0 [facility] Comment on above: Performed By: #### A DIFF, ANEU, GFR, CBC, LAC, LIP, CMP, MDW ####[place] [address] MCHC 33.7 G/dL Normal 32.0-36.0 [facility] Comment on above: Performed By: #### A DIFF, ANEU, GFR, CBC, LAC, LIP, CMP, MDW ####[place] [address] MCV (RBC) [Entitic vol] 96.5 fL Normal 80.0-99.0 [facility] Comment on above: Performed By: #### A DIFF, ANEU, GFR, CBC, LAC, LIP, CMP, MDW ####[place] [address] Platelet 370 10 3/mcL Normal 150-450 [facility] Comment on above: Performed By: #### A DIFF, ANEU, GFR, CBC, LAC, LIP, CMP, MDW ####[place] [address] Platelet mean volume (Bld) [Entitic vol] 7.4 fL Normal 6.6-10.5 [facility] Comment on above: Performed By: #### A DIFF, ANEU, GFR, CBC, LAC, LIP, CMP, MDW ####[place] [address] RBC 4.50 10 6/mcL Normal 4.10-5.30 [facility] Comment on above: Performed By: #### A DIFF, ANEU, GFR, CBC, LAC, LIP, CMP, MDW ####[place] [address] WBC 9.0 10 3/mcL Normal 4.5-10.8 [facility] Comment on above: Performed By: #### A DIFF, ANEU, GFR, CBC, LAC, LIP, CMP, MDW ####[place] [address] CMPon 03-09-2025 Albumin Level 4.4 G/dL Normal 3.2-4.8 [facility] Comment on above: Performed By: #### A DIFF, ANEU, GFR, CBC, LAC, LIP, CMP, MDW ####[place] [address] Albumin/Globulin [Mass ratio] 1.4 {ratio} Normal 0.9-1.6 [facility] Comment on above: Performed By: #### A DIFF, ANEU, GFR, CBC, LAC, LIP, CMP, MDW ####[place] [address] ALP [Catalytic activity/Vol] 76 U/L Normal 38-126 [facility] Comment on above: Performed By: #### A DIFF, ANEU, GFR, CBC, LAC, LIP, CMP, MDW ####[place] [address] ALT [Catalytic activity/Vol] 11 U/L Normal 10-49 [facility] Comment on above: Performed By: #### A DIFF, ANEU, GFR, CBC, LAC, LIP, CMP, W ####[place] [address] AST [Catalytic activity/Vol] 19 U/L Normal 8-34 [facility] Comment on above: Performed By: #### A DIFF, ANEU, GFR, CBC, LAC, LIP, CMP, MDW ####[place] [address] Bili Total 0.40 mg/dL Normal 0.20-1.20 [facility] Comment on above: Result Comment: Use of this assay is not recommended for patients undergoing treatment with eltrombopag due to the potential for falsely elevated results. Performed By: #### A DIFF, ANEU, GFR, CBC, LAC, LIP, CMP, MDW ####[place] [address] BUN/Creatinine Ratio 10.3 ratio Normal 10.0-22.0 [facility] Comment on above: Performed By: #### A DIFF, ANEU, GFR, CBC, LAC, LIP, CMP, MDW ####[place] [address] Calcium [Mass/Vol] 9.9 mg/dL Normal 8.7-10.4 [facility] Comment on above: Performed By: #### A DIFF, ANEU, GFR, CBC, LAC, LIP, CMP, MDW ####[address] [address] Chloride [Moles/Vol] 109 mmol/L Normal 98-110 [facility] Comment on above: Performed By: #### A DIFF, ANEU, GFR, CBC, LAC, LIP, CMP, W ####[address] [address] CO2 [Moles/Vol] 27 mmol/L Normal 22-32 [facility] Comment on above: Performed By: #### A DIFF, ANEU, GFR, CBC, LAC, LIP, CMP, MDW ####[address] [address] Creatinine [Mass/Vol] 0.87 mg/dL Normal 0.50-1.20 [facility] Comment on above: Result Comment: Test ing performed on Algisys analyzer using enzymatic creatinine methodology. Performed By: #### A DIFF, ANEU, GFR, CBC, LAC, LIP, CMP, YOUNG ####[place] [id number] Electrolyte Balance 4.0 mEq/L Normal 4.0-15.0 [facility] Comment on above: Performed By: #### A DIFF, ANEU, GFR, CBC, LAC, LIP, CMP, YOUNG ####[address] [address] Globulin 3.1 G/dL Normal 2.5-4.2 [facility] Comment on above: Performed By: #### A DIFF, ANEU, GFR, CBC, LAC, LIP, CMP, YOUNG ####[address] [address] Glucose [Mass/Vol] 80 mg/dL Normal 70-110 [facility] Comment on above: Performed By: #### A DIFF, ANEU, GFR, CBC, LAC, LIP, CMP, YOUNG ####[address] [address] Potassium [Moles/Vol] 3.9 mmol/L Normal 3.5-5.0 [facility] Comment on above: Performed By: #### A DIFF, ANEU, GFR, CBC, LAC, LIP, CMP, YOUNG ####[address] [address] Sodium [Moles/Vol] 140 mmol/L Normal 136-145 [facility] Comment on above: Performed By: #### A DIFF, ANEU, GFR, CBC, LAC, LIP, CMP, MDW ####[address] [address] Total Protein 7.5 G/dL Normal 5.7-8.2 [facility] Comment on above: Performed By: #### A DIFF, ANEU, GFR, CBC, LAC, LIP, CMP, MDW ####[address] [address] Urea nitrogen [Mass/Vol] 9.0 mg/dL Normal 8.0-22.0 [facility] Comment on above: Performed By: #### A DIFF, ANEU, GFR, CBC, LAC, LIP, CMP, MDW ####[address] [address] [address] RENALon 03-09-2025 CT RENAL Normal [facility] MAIN LABORATORYOrdered By: Nicole Wilson on 03-09-2025 Appearance (U) Clear (03/09/25 2:30 PM) Normal Clear Auto Urine SS Bilirubin Ql (U) Negative (03/09/25 2:30 PM) Normal Neg-Trace AH Auto Urine SS Color (U) Yellow (03/09/25 2:30 PM) Normal Auto Urine SS Glucose Test strip (U) [Mass/Vol] Negative Normal Negative Auto Urine SS Hemoglobin Auto test strip [...] 0-5 AH Auto Urine SS LABORATORYOrdered By: [employer] on 03-09-2025 Albumin BCP dye [Mass/Vol] [...] 0.87 mg/dL Normal 0.50 - 1.20 mg/dL ADM SS Comment on above: Interpretive Data: T esting performed on Alg[employer] analyzer using enzymatic creatinine methodology. Electrolyte Balance [...] 3.1 G/dL Normal 2.5 - 4.2 G/dL ADM SS Glucose [Mass/Vol] 80 mg/dL Normal 70 - 110 mg/dL ADM SS Hematocrit (Bld) [Volume fraction] 43.5 % Normal 34.0 - 46.0 % Workflow SS Hemoglobin (Bld) [Mass/Vol] 14.6 G/dL Normal 12.0 - 16.0 G/dL Workflow SS Lactate [Moles/Vol] 0.9 mmol/L Normal 0.5 - 2. 2 mmol/L ADM SS Lipase [Catalytic activity/Vol] 25 U/L Normal 12 - 53 U/L ADM SS Comment on above: Interpretive Data: [...] 140 mmol/L Normal 136 - 145 mEq/L AH ADM SS Urea nitrogen [Mass/Vol] 9.0 mg/dL Normal 8.0 - 22.0 mg/dL AH ADM SS Urea nitrogen/Creatinine [Mass ratio] 10.3 ratio Normal 10.0 - 22.0 ratio AH ADM SS WBC (Bld) [#/Vol] 9.0 103/mcL Normal 4.5 - 10.8 10^3/mcL AH Workflow SS LACon 03-09-2025 Lactic Acid Lvl 0.9 mmol/L Normal 0.5-2.2 [facility] Comment on above: Performed By: #### A DIFF, ANEU, GFR, CBC, LAC, LIP, CMP, MDW ####[place] [address] LIPon 03-09-2025 Lipase Level 25 U/L Normal 12-53 [facility] Comment on above: Result Comment: No te - New Reference Range in effect 20 Performed By: #### A DIFF, ANEU, GFR, CBC, LAC, LIP, CMP, MDW ####[place] [address] UAon 03-09-2025 Color (U) Yellow Normal [facility] Comment on above: Performed By: #### U A, UAMIC ####[place] [address] Glucose (U) [Mass/Vol] Negative Normal Negative [facility] Comment on above: Performed By: #### U A, UAMIC ####[place] [address] Ketones Ql (U) Negative Normal Neg-Trace [facility] Comment on above: Performed By: #### U A, UAMIC ####[place] [address] UA Appear Clear Normal Clear [facility] Comment on above: Performed By: #### U A, UAMIC ####[place] [address] UA Blood Small Abnormal Neg-Trace [facility] Comment on above: Performed By: #### U A, UAMIC ####[place] [address] UA Leuk Est Moderate Abnormal Negative [facility] Comment on above: Performed By: #### U A, UAMIC ####[place] [address] UA Nitrite Negative Normal Negative [facility] Comment on above: Performed By: #### U A, UAMIC ####[place] [address] UA pH 7.5 Normal 5.0 - 8.0 [facility] Comment on above: Performed By: #### U A, UAMIC ####[place] [address] UA Protein Trace Normal Negative [facility] Comment on above: Performed By: #### U A, UAMIC ####[place] [address] UA Spec Grav <=1.005 Abnormal 1.006-1.029 [facility] Comment on above: Performed By: #### U A, UAMIC ####[place] [address] UA Specimen Type Not Given [facility]IN Comment on above: Performed By: #### U A, UAMIC ####[place] [address] UA Urobilinogen 0.2 E.U./dL Normal 0.2-1.0 [facility] Comment on above: Performed By: #### U A, UAMIC ####[place] [address] Urobilinogen (U) [Mass/Vol] Negative Normal Neg-Trace [facility] Comment on above: Performed By: #### U A, UAMIC ####[place] [address] UAMICon 03-09-2025 UA Bacteria Trace Abnormal Negative [facility] Comment on above: Performed By: #### U A, UAMIC ####[place] [address] UA Crenated RBCs Rare Abnormal [facility] Comment on above: Performed By: #### U A, UAMIC ####[place] [address] UA RBC 3-5 Abnormal 0-2 [facility] Comment on above: Performed By: #### U A, UAMIC ####[facility] [address] [place] [address] UA Squam Epithelial Rare Normal 0-20 [facility] Comment on above: Performed By: #### U A, UAMIC ####[facility] [place] [address] UA WBC 3-5 Normal 0-5 [facility] Comment on above: Performed By: #### U A, UAMIC ####[facility] [place] [address] XR CHEST 1 VIEWon 03-09-2025 XR CHEST 1 VIEW Normal [facility] ED MED ADMINISTRATION DETAIL on 03-08-2025 ED MED ADMINISTRATION DETAIL Normal [facility] ED MED ADMINISTRATION DETAIL Normal [facility] ED NURSES CLINICAL NOTEon ED NURSES CLINICAL NOTE Normal [facility] ED NURSES CLINICAL NOTE Normal [facility] ED ORDER SHEET (CPOE ONLY)on 03-08-2025 ED ORDER SHEET (CPOE ONLY) Normal [facility] ED ORDER SHEET (CPOE ONLY) Normal [facility] ED PHYSICIAN CLINICAL REPORT on 03-08-2025 ED PHYSICIAN CLINICAL REPORT Normal [facility] ED PHYSICIAN CLINICAL REPORT Normal [facility] ED SUPER BILLon 03-08-2025 ED SUPER BILL Normal [facility] ED SUPER BILL Normal [facility] ED VISIT SUMMARYon ED VISIT SUMMARY Normal [facility] ED VISIT SUMMARY Normal [facility] ED VITALS FLOW SHEETon 03-08 ED VITALS FLOW SHEET Normal [facility] ED VITALS FLOW SHEET Normal [facility] URINE CULTURE [CCL]on 2024 Bacteria identified Cx Nom (U) Normal [facility] Comment on above: Performed By: #### 2 [id number] ####[facility] [place],[address] [place] [address] BMP with eGFRon 03-07-2025 AGE 34 years Normal [facility] Comment on above: Performed By: #### 2 65967 ####[facility] [place],[address] [place] [address] 39283 Anion gap [Moles/Vol] 14 mmol/L Normal 10 - 20 [facility] Comment on above: Performed By: #### 2 88938 ####[facility] [place],[address] [place] [address] 42164 BMP with eGFR Normal [facility] Comment on above: Result Comment: BASI C METABOLIC PANEL Performed By: #### 2 78047 ####[facility] [place],[address] [place] [address]23 Calcium [Mass/Vol] 8.8 mg/dL Normal 8.5 - 10.1 [facility] Comment on above: Performed By: #### 2 99279 ####[facility] [place],[address] [place] [address] 68711 Chloride [Moles/Vol] 105 mmol/L Normal 98 - 107 [facility] Comment on above: Performed By: #### 2 46487 ####[facility] [place],[address] [place] [address] 63492 CO2 [Moles/Vol] 26.5 mmol/L Normal 21.0 - 32.0 [facility] Comment on above: Performed By: #### 2 04212 ####[facility] [place],[address] [place] [address]91 Creatinine [Mass/Vol] 0.94 mg/dL Normal 0.55 - 1.02 [facility] Comment on above: Performed By: #### 2 71521 ####[facility] [place],[address] [place] [address]245 GFR/1.73 sq M.predicted among non-blacks MDRD (S/P/Bld) [Vol rate/Area] mL/min/{1.73_m2} Normal 60 - 999 [facility] Comment on above: Performed By: #### 2 66551 ####[facility] [place],[address] [place] [address] 12596 Result Comment: ACCO RDING TO THE NATIONAL KIDNEY DISEASE EDUCATION PROGRAM(NKDE), A NORMAL eGFRIS A VALUE GREATER THAN OR EQUAL TO 60 ML/MIN/1.73 SQ METERS.CHRONIC KIDNEY DISEASE: <60mL/MIN/1.73 SQ METERSKIDNEY FAILURE: <15mL/MIN/1.73 SQ METERSTHIS TEST SHOULD ONLY BE USED FOR PATIENTS 18 YEARS OF AGE AND OLDER. Glucose [Mass/Vol] 109 mg/dL High 74 - 106 [facility] Comment on above: Performed By: #### 2 21224 ####[facility] [place],[address] [place] [address]176 Potassium [Moles/Vol] 3.7 mmol/L Normal 3.5 - 5.1 [facility] Comment on above: Performed By: #### 2 29439 ####[facility] [place],[address] [place] [address] 07589 Sodium [Moles/Vol] 142 mmol/L Normal 136 - 145 [facility] Comment on above: Performed By: #### 2 56788 ####[facility] [place],[address] [place] [address] 23549 Urea nitrogen [Mass/Vol] 11 mg/dL Normal 7 - 18 [facility] Comment on above: Performed By: #### 2 25845 ####[facility] [place],[address] [place] [address] 69495 CBC + DIFFon 03-07-2025 Baso # 0.04 x10EE3/UL Normal 0.00 - 0.10 [facility] Comment on above: Performed By: #### 2 87687 ####[facility] [place],[address] [place] [address] 89689 Basophils/100 WBC (Bld) 0.5 % Normal 0.0 - 2.0 [facility] Comment on above: Performed By: #### 2 97152 ####[facility] [place],[address] [place] [address] 91473 CBC + DIFF Normal [facility] Comment on above: Result Comment: CBC- COMPLETE BLOOD COUNT Performed By: #### 2 45891 ####[place] [address] EO # 0.19 x10EE3/UL Normal 0.00 - 0.50 [facility] Comment on above: Performed By: #### 2 69187 ####[place] [address] Eosinophils/100 WBC (Bld) 2.5 % Normal 0.0 - 7.0 [facility] Comment on above: Performed By: #### 2 57872 ####[place] [address] Erythrocyte distribution width (RBC) [Ratio] 13.4 % Normal 12.0 - 15.6 [facility] Comment on above: Performed By: #### 2 57962 ####[place] [address] Hematocrit (Bld) [Volume fraction] 36.1 % Normal 34.0 - 46.0 [facility] Comment on above: Performed By: #### 2 32471 ####[place] [address] Hemoglobin (Bld) [Mass/Vol] 12.4 g/dL Normal 12.0 - 16.0 [facility] Comment on above: Performed By: #### 2 40286 ####[place] [address] Lymph # 2.18 x10EE3/UL Normal 0.80 - 2.80 [facility] Comment on above: Performed By: #### 2 10532 ####[place] [address] Lymphocytes/100 WBC (Bld) 27.9 % Normal 20.0 - 45.0 [facility] Comment on above: Performed By: #### 2 91470 ####[place] [address] MANUAL DIFF N/A Normal [facility] Comment on above: Performed By: #### 2 80946 ####[facility] [place],[address] [place] [address] MCH (RBC) [Entitic mass] 33 pg Normal 27 - 33 [facility] Comment on above: Performed By: #### 2 34631 ####[facility] [place],[address] [place] [address] MCHC 34 X10 3 Normal 32 - 36 [facility] Comment on above: Performed By: #### 2 15316 ####[facility] [place],[address] [place] [address] MCV (RBC) [Entitic vol] 97 fL Normal 80 - 99 [facility] Comment on above: Performed By: #### 2 07510 ####[facility] [place],[address] [place] [address] Moca # 0.67 x10EE3/UL Normal 0.20 - 1.00 [facility] Comment on above: Performed By: #### 2 34517 ####[facility] [place],[address] [place] [address] MONOS % 8.5 % Normal 0.0 - 10.0 [facility] Comment on above: Performed By: #### 2 46367 ####[facility] [place],[address] [place] [address] Morphology Efra (Bld) [Interp] N/A Normal [facility] Comment on above: Performed By: #### 2 93873 ####[facility] [place],[address] [place] [address] Neut # 4.76 x10EE3/UL Normal 1.50 - 7.10 [facility] Comment on above: Performed By: #### 2 52354 ####[facility] [place],[address] [place] [address] Neutrophils/100 WBC (Bld) 60.8 % Normal 46.0 - 76.0 [facility] Comment on above: Performed By: #### 2 93215 ####[facility] [place],[address] [place] [address]2730 PLATELET 367 x10EE3/UL Normal 150 - 450 [facility] Comment on above: Performed By: #### 2 53345 ####[facility] [place],[address] [place] [address] 89904 Platelet mean volume (Bld) [Entitic vol] 6.9 fL Normal 6.6 - 10.5 [facility] Comment on above: Result Comment: AUTO MATED DIFFERENTIAL Performed By: #### 2 46788 ####[facility] [place],[address] [place] [address] 11948 RBC 3.74 x 10EE6/UL Low 4.10 - 5.30 [facility] Comment on above: Performed By: #### 2 97177 ####[facility],[address] [place] [address] 62166 WBC 7.8 x 10EE3/UL Normal 4.5 - 10.8 [facility] Comment on above: Performed By: #### 2 05809 ####[facility] [place],[address] [place] [address] ED MED ADMINISTRATION DETAIL on 03-07-2025 ED MED ADMINISTRATION DETAIL Normal [facility] ED NURSES CLINICAL NOTEon ED NURSES CLINICAL NOTE Normal [facility] ED ORDER SHEET (CPOE ONLY)on 03-07-2025 ED ORDER SHEET (CPOE ONLY) Normal [facility] ED PHYSICIAN CLINICAL REPORT on 03-07-2025 ED PHYSICIAN CLINICAL REPORT Normal [facility] ED SUPER BILLon 03-07-2025 ED SUPER BILL Normal [facility] ED VISIT SUMMARYon ED VISIT SUMMARY Normal [facility] ED VITALS FLOW SHEETon 03-07 ED VITALS FLOW SHEET Normal [facility] CMP with eGFRon 03-06-2025 AGE 34 years Normal [facility] Comment on above: Performed By: #### 2 21044 ####[facility],[address] [place] [address] 13187 Albumin [Mass/Vol] 3.5 g/dL Normal 3.4 - 5.0 [facility] Comment on above: Performed By: #### 2 19433 ####[facility],[address] [place] [address] 57176 Albumin/Globulin [Mass ratio] 1.2 {ratio} Normal 0.9 - 1.6 [facility] Comment on above: Performed By: #### 2 80234 ####[facility],[address] [place] [address] 47412 ALK PHOS 70 U/L Normal 46 - 116 [facility] Comment on above: Performed By: #### 2 05698 ####[facility],[address] [place] [address] 24536 ALT [Catalytic activity/Vol] 15 U/L Low 16 - 63 [facility] Comment on above: Performed By: #### 2 81090 ####[facility],[address] [place] [address] 85993 Anion gap [Moles/Vol] 11 mmol/L Normal 10 - 20 [facility] Comment on above: Performed By: #### 2 79799 ####[facility],[address] [place] [address] 22179 AST [Catalytic activity/Vol] 21 U/L Normal 13 - 39 [facility] Comment on above: Result Comment: NATHANIEL ANA LILIA SAMPLE;MANUAL DILUTION PERFORMED Performed By: #### 2 95849 ####[address] [address] B/C RATIO 11 ratio Normal 0 - 30 [facility] Comment on above: Performed By: #### 2 40344 ####[facility] [place],[address] [place] [address] 62673 Bilirubin [Mass/Vol] 0.3 mg/dL Normal 0.2 - 1.0 [facility] Comment on above: Performed By: #### 2 17537 ####[place] [address] Calcium [Mass/Vol] 8.8 mg/dL Normal 8.5 - 10.1 [facility] Comment on above: Performed By: #### 2 76189 ####[facility] [place],[address] [place] [address] Chloride [Moles/Vol] 107 mmol/L Normal 98 - 107 [facility] Comment on above: Performed By: #### 2 91403 ####[place] [address] CMP with eGFR Normal [facility] Comment on above: Result Comment: COMP REHENSIVE METABOLIC PANEL Performed By: #### 2 57375 ####[place] [address] CO2 [Moles/Vol] 24.2 mmol/L Normal 21.0 - 32.0 [facility] Comment on above: Performed By: #### 2 83779 ####[place] [address] Creatinine [Mass/Vol] 1.03 mg/dL High 0.55 - 1.02 [facility] Comment on above: Performed By: #### 2 94489 ####[place] [address] GFR/1.73 sq M.predicted among non-blacks MDRD (S/P/Bld) [Vol rate/Area] mL/min/{1.73_m2} Normal 60 - 999 [facility] Comment on above: Performed By: #### 2 57114 ####[facility] [place],[address] [place] [address] Result Comment: ACCO RDING TO THE NATIONAL KIDNEY DISEASE EDUCATION PROGRAM(NKDE), A NORMAL eGFRIS A VALUE GREATER THAN OR EQUAL TO 60 ML/MIN/1.73 SQ METERS.CHRONIC KIDNEY DISEASE: <60mL/MIN/1.73 SQ METERSKIDNEY FAILURE: <15mL/MIN/1.73 SQ METERSTHIS TEST SHOULD ONLY BE USED FOR PATIENTS 18 YEARS OF AGE AND OLDER. Globulin (S) [Mass/Vol] 2.9 g/dL Normal 1.5 - 3.8 [facility] Comment on above: Performed By: #### 2 85420 ####[facility],[address] [place] [address]3859 Glucose [Mass/Vol] 111 mg/dL High 74 - 106 [facility] Comment on above: Performed By: #### 2 33353 ####[facility],[address] [place] [address] 25547 Potassium [Moles/Vol] 3.6 mmol/L Normal 3.5 - 5.1 [facility] Comment on above: Performed By: #### 2 71229 ####[facility],[address] [place] [address] 05084 Protein [Mass/Vol] 6.4 g/dL Normal 6.4 - 8.2 [facility] Comment on above: Performed By: #### 2 77543 ####[facility],[address] [place] [address] 39007 Sodium [Moles/Vol] 139 mmol/L Normal 136 - 145 [facility] Comment on above: Performed By: #### 2 51202 ####[facility],[address] [place] [address] 07161 Urea nitrogen [Mass/Vol] 11 mg/dL Normal 7 - 18 [facility] Comment on above: Performed By: #### 2 28019 ####[facility] [place],[address] [place] [address] 36728 CBC + DIFFon 03-05-2025 Baso # 0.03 x10EE3/UL Normal 0.00 - 0.10 [facility] Comment on above: Performed By: #### 2 31893 ####[facility] [place],[address] [place] [address] 19362 Basophils/100 WBC (Bld) 0.3 % Normal 0.0 - 2.0 [facility] Comment on above: Performed By: #### 2 57596 ####[facility] [place],[address] [place], [place] [id number] CBC + DIFF Normal [facility] Comment on above: Result Comment: CBC- COMPLETE BLOOD COUNT Performed By: #### 2 51099 ####[facility] [place],[address] [place] [address] EO # 0.28 x10EE3/UL Normal 0.00 - 0.50 [facility] Comment on above: Performed By: #### 2 05797 ####[facility],[address] [place] [address] 09113 Eosinophils/100 WBC (Bld) 3.0 % Normal 0.0 - 7.0 [facility] Comment on above: Performed By: #### 2 58344 ####[facility] [place],[address] [place], [place] [id number] Erythrocyte distribution width (RBC) [Ratio] 13.4 % Normal 12.0 - 15.6 [facility] Comment on above: Performed By: #### 2 38514 ####[facility],[address] [place] [address] Hematocrit (Bld) [Volume fraction] 38.4 % Normal 34.0 - 46.0 [facility] Comment on above: Performed By: #### 2 51517 ####[facility],[address] [place] [address] 28949 Hemoglobin (Bld) [Mass/Vol] 13.7 g/dL Normal 12.0 - 16.0 [facility] Comment on above: Performed By: #### 2 50987 ####[facility],[address] [place] [address] Lymph # 2.75 x10EE3/UL Normal 0.80 - 2.80 [facility] Comment on above: Performed By: #### 2 72564 ####[facility] [place],[address] [place], [place] [id number] Lymphocytes/100 WBC (Bld) 30.0 % Normal 20.0 - 45.0 [facility] Comment on above: Performed By: #### 2 61986 ####[facility] [place],[address] [place] [address] MANUAL DIFF N/A Normal [facility] Comment on above: Performed By: #### 2 88677 ####[facility] [place],[address] [place] [address] MCH (RBC) [Entitic mass] 34 pg High 27 - 33 [facility] Comment on above: Performed By: #### 2 23212 ####[place] [address] MCHC 36 X10 3 Normal 32 - 36 [facility] Comment on above: Performed By: #### 2 76354 ####[place] [id number] MCV (RBC) [Entitic vol] 95 fL Normal 80 - 99 [facility] Comment on above: Performed By: #### 2 06378 ####[place] [id number] Moca # 0.71 x10EE3/UL Normal 0.20 - 1.00 [facility] [place] Comment on above: Performed By: #### 2 73842 ####[address] [address] MONOS % 7.7 % Normal 0.0 - 10.0 [facility] [place] Comment on above: Performed By: #### 2 34287 ####[facility] [place],[address] [place] [address] Morphology Efra (Bld) [Interp] N/A Normal [facility] [place] Comment on above: Performed By: #### 2 61863 ####[facility] [place],[address] [place] [address]32 Neut # 5.41 x10EE3/UL Normal 1.50 - 7.10 [facility] [place] Comment on above: Performed By: #### 2 69760 ####[facility] [place],[address] [place] [address]287 Neutrophils/100 WBC (Bld) 59.0 % Normal 46.0 - 76.0 [facility] [place] Comment on above: Performed By: #### 2 87982 ####[facility] [place],[address] [place] [address]642 PLATELET 347 x10EE3/UL Normal 150 - 450 [facility] [place] Comment on above: Performed By: #### 2 50821 ####[address] [address] Platelet mean volume (Bld) [Entitic vol] 6.8 fL Normal 6.6 - 10.5 [facility] [place] Comment on above: Result Comment: AUTO MATED DIFFERENTIAL Performed By: #### 2 27850 ####[facility] [place],[address] [place] [address] 69349 RBC 4.05 x 10EE6/UL Low 4.10 - 5.30 [facility] [place] Comment on above: Performed By: #### 2 25815 ####[facility] [place],[address] [place] [address]656 WBC 9.2 x 10EE3/UL Normal 4.5 - 10.8 [facility] [place] Comment on above: Performed By: #### 2 89609 ####[facility] [place],[address] [place] [address] KUB (KIDNEY STONE PROTOCO L)on 03-05-2025 CT KUB (KIDNEY STONE PROTOCOL) Normal [facility] [place] LACTATEon 03-05-2025 Lactate [Moles/Vol] 1.5 mmol/L Normal 0.4 - 2.0 [facility] [place] Comment on above: Performed By: #### 2 20990 ####[facility] [place],[address] [place] [address]273 URINALYSISon 03-05-2025 Amorphous 1+ Normal [facility] [place] Comment on above: Performed By: #### 2 72033 ####[facility] [place],[address] [place] [address] 35434 Bacteria 3+ Normal [facility] [place] Comment on above: Performed By: #### 2 33365 ####[facility] [place],[address] [place] [address] 40072 Bilirubin Ql (U) Negative Normal NORMAL: NEGATIVE [facility] [place] Comment on above: Performed By: #### 2 36989 ####[facility] [place],[address] [place], [place] [id number] Casts NONE Normal [facility] [place] Comment on above: Performed By: #### 2 31768 ####[facility] [place],[address] [place], [place] [id number] Clarity (U) sl.cloudy Normal NORMAL: CLEAR [facility] [place] Comment on above: Performed By: #### 2 22635 ####[facility] [place],[address] [place], [place] [id number] Color (U) p.yel Normal NORMAL: YELLOW [facility] [place] Comment on above: Performed By: #### 2 01639 ####[facility] [place],[address] [place] [address] 55485 Crystals LM Nom (Urine sed) NONE Normal [facility] [place] Comment on above: Performed By: #### 2 82071 ####[facility] [place],[address] [place] [address] 82045 Epi Cells FEW Normal [facility] [place] Comment on above: Performed By: #### 2 54122 ####[facility] [place],[address] [place] [address] 82963 Glucose Ql (U) NORM Normal NORMAL: NORMAL [facility] [place] Comment on above: Performed By: #### 2 63169 ####[facility] [place],[address] [place] [address] 07699 Hemoglobin Ql (U) 50 Abnormal NORMAL: NEGATIVE [facility] [place] Comment on above: Performed By: #### 2 71164 ####[facility] [place],[address] [place] [address] 89533 Ketone Negative Normal NORMAL: NEGATIVE [facility] [place] Comment on above: Performed By: #### 2 16301 ####[facility] [place],[address] [place] [address] 21827 Leukocytes 500 Abnormal NORMAL: NEGATIVE [facility] [place] Comment on above: Performed By: #### 2 41145 ####[facility] [place],[address] [place] [address] 54422 Mucous NONE Normal [facility] [place] Comment on above: Performed By: #### 2 35150 ####[facility] [place],[address] [place] [address] 76571 Nitrite Ql (U) Negative Normal NORMAL: NEGATIVE [facility] [place] Comment on above: Performed By: #### 2 87542 ####[facility] [place],[address] [place] [address] 91696 pH (U) 7 [pH] Normal NORMAL: 5.0-8.0 [facility] [place] Comment on above: Performed By: #### 2 36756 ####[facility] [place],[address] [place] [address] 25677 Protein Ql (U) 30 Abnormal NORMAL: NEGATIVE [facility] [place] Comment on above: Performed By: #### 2 16110 ####[facility] [place],[address] [place] [address] 31307 Rbc 0-5 Normal 0-3/hpf [facility] [place] Comment on above: Performed By: #### 2 91272 ####[facility] [place],[address] [place] [address] 56679 Sp [place] 1.010 Normal NORMAL: 1.010-1.030 [facility] [place] Comment on above: Performed By: #### 2 87032 ####[facility] [place],[address] [place] [address] Specimen Type R Normal [facility] [place] Comment on above: Performed By: #### 2 73434 ####[facility] [place],[address] [place] [address] Urinalysis dipstick W Reflex Microscopic panel (U) SEE BELOW Normal [facility] [place] Comment on above: Result Comment: MICR OSCOPIC Performed By: #### 2 21706 ####[facility] [place],[address] [place] [address] Urobilinog NORM Normal NORMAL: NORMAL [facility] [place] Comment on above: Performed By: #### 2 17643 ####[facility] [place],[address] [place] [address] Wbc 26-50 Normal 0-5/hpf [facility] [place] Comment on above: Performed By: #### 2 23636 ####[facility] [place],[address] [place] [address] Yeast NONE Normal [facility] [place] Comment on above: Performed By: #### 2 74408 ####[facility] [place],[address] [place] [address] .Auto Diffon 02-16-2025 Basophil, Absolute 0.1 10 3/mcL Normal 0.0-0.3 [facility] Comment on above: Performed By: #### A DIFF, CBC, BMP, ANEU, GFR ####[address] [address] Basophils/100 WBC (Bld) 0.7 % Normal 0.0-2.5 [facility] Comment on above: Performed By: #### A DIFF, CBC, BMP, ANEU, GFR ####[address] [address] Eosinophil, Absolute 0.3 10 3/mcL Normal 0.0-0.7 [facility] Comment on above: Performed By: #### A DIFF, CBC, BMP, ANEU, GFR ####[address] [address] Eosinophils/100 WBC (Bld) 4.1 % Normal 0.0-6.0 [facility] Comment on above: Performed By: #### A DIFF, CBC, BMP, ANEU, GFR ####[address] [address] Lymphocyte, Absolute 2.1 10 3/mcL Normal 0.9-4.3 [facility] Comment on above: Performed By: #### A DIFF, CBC, BMP, ANEU, GFR ####[address] [address] Lymphocytes/100 WBC (Bld) 28.4 % Normal 20.0-40.0 [facility] Comment on above: Performed By: #### A DIFF, CBC, BMP, ANEU, GFR ####[address] [address] Monocyte, Absolute 0.6 10 3/mcL Normal 0.1-1.4 [facility] Comment on above: Performed By: #### A DIFF, CBC, BMP, ANEU, GFR ####[address] [address] Monocytes/100 WBC (Bld) 8.2 % Normal 2.0-13.0 [facility] Comment on above: Performed By: #### A DIFF, CBC, BMP, ANEU, GFR ####[address] [address] Neutrophils/100 WBC (Bld) 58.6 % Normal 50.0-75.0 [facility] Comment on above: Performed By: #### A DIFF, CBC, BMP, ANEU, GFR ####[address] [address] .GFRon 02-16-2025 Estimated Glomerular Filtration Rate 98 ml/min/1.73sqm Normal [facility] Comment on above: Result Comment: Stag es of Chronic Kidney Disease (CKD)Stage Description eGFR(ml/min/1.73 sq.m.)CKD 1 Normal kidney function or >=90 normal kindney function with possible kidney damage (ex. Proteinuria)CKD 2 Kidney damage with mild loss 60-89 of kidney functionCKD 3a Mild to moderate loss of kidney 45-59 functionCKD 3b Moderate to severe loss of 30-44 of kindey function CKD 4 Severe loss of kidney function 15-29CKD 5 Kidney failure <15Note: (go live 2024) the eGFR calculation was updated to the KD-EPI creatinine equation without a race factor to calculate theeGFR results. Performed By: #### A DIFF, CBC, BMP, ANEU, GFR ####[address] [address] .NEUABSon 02-16-2025 Neutrophil, Absolute 4.3 10 3/mcL Normal 2.3-8.1 [facility] Comment on above: Performed By: #### A DIFF, CBC, BMP, ANEU, GFR ####[address] [address] BMPon 02-16-2025 BUN/Creatinine Ratio 8.8 ratio Low 10.0-22.0 [facility] Comment on above: Order Comment: hemol yzed 02/16/2025 07:26:12 EDT Performed By: #### A DIFF, CBC, BMP, ANEU, GFR ####[address] [address] Calcium [Mass/Vol] 10.0 mg/dL Normal 8.7-10.4 [facility] Comment on above: Order Comment: hemol yzed 02/16/2025 07:26:12 EDT Performed By: #### A DIFF, CBC, BMP, ANEU, GFR ####[address] [address] Chloride [Moles/Vol] 106 mmol/L Normal 98-110 [facility] Comment on above: Order Comment: hemol yzed 02/16/2025 07:26:12 EDT Performed By: #### A DIFF, CBC, BMP, ANEU, GFR ####[address] [address] CO2 [Moles/Vol] 27 mmol/L Normal 22-32 [facility] Comment on above: Order Comment: hemol yzed 02/16/2025 07:26:12 EDT Performed By: #### A DIFF, CBC, BMP, ANEU, GFR ####[address] [address] Creatinine [Mass/Vol] 0.80 mg/dL Normal 0.50-1.20 [facility] Comment on above: Order Comment: hemol yzed 02/16/2025 07:26:12 EDT Result Comment: Test ing performed on Algisys analyzer using enzymatic creatinine methodology. Performed By: #### A DIFF, CBC, BMP, ANEU, GFR ####[address] [address] Electrolyte Balance 5.0 mEq/L Normal 4.0-15.0 [facility] Comment on above: Order Comment: hemol yzed 02/16/2025 07:26:12 EDT Performed By: #### A DIFF, CBC, BMP, ANEU, GFR ####[address] [address] Glucose [Mass/Vol] 89 mg/dL Normal 70-110 [facility] Comment on above: Order Comment: hemol yzed 02/16/2025 07:26:12 EDT Performed By: #### A DIFF, CBC, BMP, ANEU, GFR ####[address] [address] Potassium [Moles/Vol] 3.7 mmol/L Normal 3.5-5.0 [facility] Comment on above: Order Comment: hemol yzed 02/16/2025 07:26:12 EDT Performed By: #### A DIFF, CBC, BMP, ANEU, GFR ####[address] [address] Sodium [Moles/Vol] 138 mmol/L Normal 136-145 [facility] Comment on above: Order Comment: hemol yzed 02/16/2025 07:26:12 EDT Performed By: #### A DIFF, CBC, BMP, ANEU, GFR ####[address] [address] Urea nitrogen [Mass/Vol] 7.0 mg/dL Low 8.0-22.0 [facility] Comment on above: Order Comment: hemol yzed 02/16/2025 07:26:12 EDT Performed By: #### A DIFF, CBC, BMP, ANEU, GFR ####[place] [address] CBCon 02-16-2025 Erythrocyte distribution width (RBC) [Ratio] 14.1 % Normal 11.5-15.5 [facility] Comment on above: Performed By: #### A DIFF, CBC, BMP, ANEU, GFR ####[place] [address] Hematocrit (Bld) [Volume fraction] 43.1 % Normal 34.0-46.0 [facility] Comment on above: Performed By: #### A DIFF, CBC, BMP, ANEU, GFR ####[place] [address] Hgb 14.6 G/dL Normal 12.0-16.0 [facility] Comment on above: Performed By: #### A DIFF, CBC, BMP, ANEU, GFR ####[place] [address] MCH (RBC) [Entitic mass] 32.9 pg Normal 27.0-33.0 [facility] Comment on above: Performed By: #### A DIFF, CBC, BMP, ANEU, GFR ####[place] [address] MCHC 33.9 G/dL Normal 32.0-36.0 [facility] Comment on above: Performed By: #### A DIFF, CBC, BMP, ANEU, GFR ####[place] [address] MCV (RBC) [Entitic vol] 97.2 fL Normal 80.0-99.0 [facility] Comment on above: Performed By: #### A DIFF, CBC, BMP, ANEU, GFR ####[place] [address] Platelet 296 10 3/mcL Normal 150-450 [facility] Comment on above: Performed By: #### A DIFF, CBC, BMP, ANEU, GFR ####[place] [address] Platelet mean volume (Bld) [Entitic vol] 7.5 fL Normal 6.6-10.5 [facility] Comment on above: Performed By: #### A DIFF, CBC, BMP, ANEU, GFR ####[place] [id number] [address] [place] [address] RBC 4.44 10 6/mcL Normal 4.10-5.30 [facility] Comment on above: Performed By: #### A DIFF, CBC, BMP, ANEU, GFR ####[facility] [place] [address] WBC 7.3 10 3/mcL Normal 4.5-10.8 [facility] Comment on above: Performed By: #### A DIFF, CBC, BMP, ANEU, GFR ####[place] [id number] [address] [place] [address] IR NEPHROSTOMY EXCHANGEon IR NEPHROSTOMY EXCHANGE Normal A [facility] LABORATORYOrdered By: SYSTEM SYSTEM on 02-16-2025 Calcium [Mass/Vol] 10.0 mg/dL Normal 8.7 - 10. 4 mg/dL ADM SS Chloride [Moles/Vol] 106 mmol/L Normal 98 - 11 0 mEq/L AH ADM SS CO2 [Moles/Vol] 27 mmol/L Normal 22 - 32 mEq/L ADM SS Creatinine [Mass/Vol] 0.80 mg/dL Normal 0.50 - 1.20 mg/dL ADM SS Comment on above: Interpretive Data: T esting performed on Algisys analyzer using enzymatic creatinine methodology. Electrolyte Balance [...] 89 mg/dL Normal 70 - 110 mg/dL AH ADM SS Potassium [Moles/Vol] 3.7 mmol/L Normal 3.5 - 5.0 mEq/L AH ADM SS Sodium [Moles/Vol] 138 mmol/L Normal 136 - 145 mEq/L AH ADM SS Urea nitrogen [Mass/Vol] 7.0 mg/dL Low 8.0 - 22.0 mg/dL AH ADM SS Urea nitrogen/Creatinine [Mass ratio] 8.8 ratio Low 10.0 - 22.0 ratio AH ADM SS Basophils (Bld) [#/Vol] 0.1 103/mcL Normal 0.0 - 0.3 10^3/mcL AH Workflow SS Basophils/100 WBC (Bld) 0.7 % Normal 0.0 - 2.5 % AH Workflow SS Eosinophils (Bld) [#/Vol] 0.3 103/mcL Normal 0.0 - 0.7 10^3/mcL AH Workflow SS Eosinophils/100 WBC (Bld) 4.1 % Normal 0.0 - 6.0 % AH Workflow SS [...] 296 103/mcL Normal 150 - 450 10^3/mcL AH Workflow SS RBC (Bld) [#/Vol] 4.44 106/mcL Normal 4.10 - 5.3 0 10^6/mcL AH Workflow SS WBC (Bld) [#/Vol] 7.3 103/mcL Normal 4.5 - 10.8 10^3/mcL AH Workflow SS LABORATORYOrdered By: Nell Gillespie on 02-16-2025 Beta HCG ( test) Ql (U) Negative (02/16/25 6:58 AM) [facility] Work Phone: CBC + DIFFon 02-10-2025 Baso # 0.03 x10EE3/UL Normal 0.00 - 0.10 [facility] [place] Comment on above: Performed By: #### 2 12831 ####[facility] [place],[address] [place] [address] Basophils/100 WBC (Bld) 0.3 % Normal 0.0 - 2.0 [facility] Comment on above: Performed By: #### 2 36686 ####[facility] [place],[address] [place] [address] CBC + DIFF Normal [facility] [place] Comment on above: Result Comment: CBC- COMPLETE BLOOD COUNT Performed By: #### 2 02929 ####[facility] [place],[address] [place] [address] EO # 0.11 x10EE3/UL Normal 0.00 - 0.50 [facility] [place] Comment on above: Performed By: #### 2 35092 ####[facility] [place],[address] [place] [address] Eosinophils/100 WBC (Bld) 1.1 % Normal 0.0 - 7.0 [facility] [place] Comment on above: Performed By: #### 2 56683 ####[facility] [place],[address] [place] [address] Erythrocyte distribution width (RBC) [Ratio] 13.3 % Normal 12.0 - 15.6 [facility] [place] Comment on above: Performed By: #### 2 42347 ####[facility] [place],[address] [place] [address] Hematocrit (Bld) [Volume fraction] 41.1 % Normal 34.0 - 46.0 [facility] [place] Comment on above: Performed By: #### 2 85737 ####[facility] [place],[address] [place] [address] Hemoglobin (Bld) [Mass/Vol] 14.7 g/dL Normal 12.0 - 16.0 [facility] [place] Comment on above: Performed By: #### 2 53850 ####[facility] [place],[address] [place] [address] Lymph # 3.18 x10EE3/UL High 0.80 - 2.80 [facility] [place] Comment on above: Performed By: #### 2 21847 ####[facility] [place],[address] [place], [place] [id number] Lymphocytes/100 WBC (Bld) 29.2 % Normal 20.0 - 45.0 [facility] [place] Comment on above: Performed By: #### 2 71624 ####[facility] [place],[address] [place] [address] MANUAL DIFF N/A Normal [facility] [place] Comment on above: Performed By: #### 2 62244 ####[facility] [place],[address] [place] [address] MCH (RBC) [Entitic mass] 34 pg High 27 - 33 [facility] [place] Comment on above: Performed By: #### 2 11582 ####[facility] [place],[address] [place] [address] MCHC 36 X10 3 Normal 32 - 36 [facility] [place] Comment on above: Performed By: #### 2 56457 ####[facility] [place],[address] [place] [address] MCV (RBC) [Entitic vol] 96 fL Normal 80 - 99 [facility] Comment on above: Performed By: #### 2 38872 ####[facility] [place],[address] [place] [address] Moca # 0.64 x10EE3/UL Normal 0.20 - 1.00 [facility] [place] Comment on above: Performed By: #### 2 46317 ####[facility] [place],[address] [place] [address] MONOS % 5.9 % Normal 0.0 - 10.0 [facility] [place] Comment on above: Performed By: #### 2 43810 ####[facility] [place],[address] [place] [address] Morphology Efra (Bld) [Interp] N/A Normal [facility] [place] Comment on above: Performed By: #### 2 57737 ####[facility] [place],[address] [place] [address] Neut # 6.90 x10EE3/UL Normal 1.50 - 7.10 [facility] [place] Comment on above: Performed By: #### 2 87384 ####[facility] [place],[address] [place], [place] [id number] Neutrophils/100 WBC (Bld) 63.5 % Normal 46.0 - 76.0 [facility] [place] Comment on above: Performed By: #### 2 32140 ####[facility] [place],[address] [place], [place] [id number] PLATELET 320 x10EE3/UL Normal 150 - 450 [facility] [place] Comment on above: Performed By: #### 2 53667 ####[facility] [place],[address] [place] [address] Platelet mean volume (Bld) [Entitic vol] 6.6 fL Normal 6.6 - 10.5 [facility] [place] Comment on above: Result Comment: AUTO MATED DIFFERENTIAL Performed By: #### 2 77508 ####[facility] [place],[address] [place] [address] RBC 4.29 x 10EE6/UL Normal 4.10 - 5.30 [facility] [place] Comment on above: Performed By: #### 2 44299 ####[facility] [place],[address] [place] [address] WBC 10.9 x 10EE3/UL High 4.5 - 10.8 [facility] [place] Comment on above: Performed By: #### 2 98491 ####[facility] [place],[address] [place] [address] CMP with eGFRon 02-10-2025 AGE 34 years Normal [facility] [place] Comment on above: Performed By: #### 2 52168 ####[facility] [place],[address] [place] [address] Albumin [Mass/Vol] 4.0 g/dL Normal 3.4 - 5.0 [facility] [place] Comment on above: Performed By: #### 2 25095 ####[facility] [place],[address] [place] [address] Albumin/Globulin [Mass ratio] 1.3 {ratio} Normal 0.9 - 1.6 [facility] [place] Comment on above: Performed By: #### 2 [id number] ####[facility] [place],[address] [place] [address] 02862 ALK PHOS 73 U/L Normal 46 - 116 [facility] [place] Comment on above: Performed By: #### 2 97812 ####[facility] [place],[address] [place] [address] 15252 ALT [Catalytic activity/Vol] 13 U/L Low 16 - 63 [facility] [place] Comment on above: Performed By: #### 2 25548 ####[facility] [place],[address] [place] [address] 67903 Anion gap [Moles/Vol] 17 mmol/L Normal 10 - 20 [facility] Comment on above: Performed By: #### 2 45485 ####[facility] [place],[address] [place] [address] 43692 AST [Catalytic activity/Vol] 11 U/L Low 13 - 39 [facility] [place] Comment on above: Performed By: #### 2 08776 ####[facility] [place],[address] [place] [address] 29637 B/C RATIO 12 ratio Normal 0 - 30 [facility] [place] Comment on above: Performed By: #### 2 57042 ####[facility] [place],[address] [place] [address] 60026 Bilirubin [Mass/Vol] 0.6 mg/dL Normal 0.2 - 1.0 [facility] [place] Comment on above: Performed By: #### 2 78657 ####[facility] [place],[address] [place] [address] 65291 Calcium [Mass/Vol] 9.5 mg/dL Normal 8.5 - 10.1 [facility] [place] Comment on above: Performed By: #### 2 48960 ####[facility] [place],[address] [place] [address] 88760 Chloride [Moles/Vol] 100 mmol/L Normal 98 - 107 [facility] [place] Comment on above: Performed By: #### 2 50170 ####[facility] [place],[address] [place] [address] 57398 CMP with eGFR Normal [facility] [place] Comment on above: Result Comment: COMP REHENSIVE METABOLIC PANEL Performed By: #### 2 64068 ####[facility] [place],[address] [place] [address] 83036 CO2 [Moles/Vol] 25.6 mmol/L Normal 21.0 - 32.0 [facility] [place] Comment on above: Performed By: #### 2 85977 ####[facility] [place],[address] [place] [address] 21640 Creatinine [Mass/Vol] 1.10 mg/dL High 0.55 - 1.02 [facility] Comment on above: Performed By: #### 2 74179 ####[facility] [place],[address] [place] [address] 41091 eGFR 56 ML/MINUTE Low 60 - 999 [facility] [place] Comment on above: Performed By: #### 2 43916 ####[facility] [place],[address] [place] [address] 24095 GFR/1.73 sq M.predicted among non-blacks MDRD (S/P/Bld) [Vol rate/Area] mL/min/{1.73_m2} Normal 60 - 999 [facility] [place] Comment on above: Result Comment: ACCO RDING TO THE NATIONAL KIDNEY DISEASE EDUCATION PROGRAM(NKDE), A NORMAL eGFRIS A VALUE GREATER THAN OR EQUAL TO 60 ML/MIN/1.73 SQ METERS.CHRONIC KIDNEY DISEASE: <60mL/MIN/1.73 SQ METERSKIDNEY FAILURE: <15mL/MIN/1.73 SQ METERSTHIS TEST SHOULD ONLY BE USED FOR PATIENTS 18 YEARS OF AGE AND OLDER. Performed By: #### 2 82831 ####[facility] [place],[address] [place] [address] 70324 Globulin (S) [Mass/Vol] 3.2 g/dL Normal 1.5 - 3.8 [facility] Comment on above: Performed By: #### 2 82930 ####[facility] [place],[address] [place] [address] 73109 Glucose [Mass/Vol] 72 mg/dL Low 74 - 106 [facility] [place] Comment on above: Performed By: #### 2 77260 ####[facility] [place],[address] [place] [address] 79643 Potassium [Moles/Vol] 3.4 mmol/L Low 3.5 - 5.1 [facility] Comment on above: Performed By: #### 2 82666 ####[facility] [place],[address] [place] [address] 73270 Protein [Mass/Vol] 7.2 g/dL Normal 6.4 - 8.2 [facility] [place] Comment on above: Performed By: #### 2 88986 ####[facility] [place],[address] [place] [address] Sodium [Moles/Vol] 139 mmol/L Normal 136 - 145 [facility] [place] Comment on above: Performed By: #### 2 32407 ####[facility] [place],[address] [place], [place] [id number] Urea nitrogen [Mass/Vol] 13 mg/dL Normal 7 - 18 [facility] [place] Comment on above: Performed By: #### 2 09862 ####[facility] [place],[address] [place], [place] [id number] CT ABDOMEN/PELVIS WOon 02-10 CT ABDOMEN/PELVIS WO Normal [facility] [place] ED MED ADMINISTRATION DETAIL on 02-10-2025 ED MED ADMINISTRATION DETAIL Normal [facility] [place] ED NURSES CLINICAL NOTEon ED NURSES CLINICAL NOTE Normal [facility] ED ORDER SHEET (CPOE ONLY)on 02-10-2025 ED ORDER SHEET (CPOE ONLY) Normal [facility] [place] ED PHYSICIAN CLINICAL REPORT on 02-10-2025 ED PHYSICIAN CLINICAL REPORT Normal [facility] [place] ED SUPER BILLon 02-10-2025 ED SUPER BILL Normal [facility] [place] ED VISIT SUMMARYon ED VISIT SUMMARY Normal [facility] [place] ED VITALS FLOW SHEETon 02-10 ED VITALS FLOW SHEET Normal [facility] [place] LACTATEon 02-10-2025 Lactate [Moles/Vol] 0.7 mmol/L Normal 0.4 - 2.0 [facility] [place] Comment on above: Performed By: #### 2 56544 ####[facility] [place],[address] [place], [place] [id number] URINALYSISon 02-10-2025 Amorphous NONE Normal [facility] [place] Comment on above: Performed By: #### 2 42572 ####[facility] [place],[address] [place], [place] [id number] Bacteria 3+ Normal [facility] [place] Comment on above: Performed By: #### 2 21547 ####[facility] [place],[address] [place], [place] [id number] Bilirubin Ql (U) Negative Normal NORMAL: NEGATIVE [facility] [place] Comment on above: Performed By: #### 2 21649 ####[facility] [place],[address] [place] [address] Casts NONE Normal [facility] [place] Comment on above: Performed By: #### 2 38715 ####[facility] [place],[address] [place] [address] Clarity (U) sl.cloudy Normal NORMAL: CLEAR [facility] [place] Comment on above: Performed By: #### 2 84396 ####[facility] [place],[address] [place], [place] [id number] Color (U) yellow Normal NORMAL: YELLOW [facility] [place] Comment on above: Performed By: #### 2 72036 ####[facility] [place],[address] [place] [address] 35841 Crystals LM Nom (Urine sed) NONE Normal [facility] [place] Comment on above: Performed By: #### 2 34684 ####[facility] [place],[address] [place] [address] 29864 Epi Cells OCC Normal [facility] [place] Comment on above: Performed By: #### 2 62647 ####[facility] [place],[address] [place] [address] 18523 Glucose Ql (U) NORM Normal NORMAL: NORMAL [facility] [place] Comment on above: Performed By: #### 2 28271 ####[facility] [place],[address] [place] [address] 29969 Hemoglobin Ql (U) 250 Abnormal NORMAL: NEGATIVE [facility] [place] Comment on above: Performed By: #### 2 69001 ####[facility] [place],[address] [place] [address] 95786 Ketone Negative Normal NORMAL: NEGATIVE [facility] [place] Comment on above: Performed By: #### 2 35320 ####[facility] [place],[address] [place], [place] [id number] Leukocytes 500 Abnormal NORMAL: NEGATIVE [facility] [place] Comment on above: Performed By: #### 2 38192 ####[facility] [place],[address] [place] [address] Mucous NONE Normal [facility] [place] Comment on above: Performed By: #### 2 98609 ####[facility] [place],[address] [place], [place] [id number] Nitrite Ql (U) Negative Normal NORMAL: NEGATIVE [facility] [place] Comment on above: Performed By: #### 2 14999 ####[facility] [place],[address] [place] [address] pH (U) 8 [pH] Normal NORMAL: 5.0-8.0 [facility] [place] Comment on above: Performed By: #### 2 52846 ####[facility] [place],[address] [place] [address] Protein Ql (U) 100 Abnormal NORMAL: NEGATIVE [facility] [place] Comment on above: Performed By: #### 2 60274 ####[facility] [place],[address] [place], [place] [id number] Rbc TNTC Normal 0-3/hpf [facility] [place] Comment on above: Performed By: #### 2 57698 ####[facility] [place],[address] [place], [place] [id number] Sp [place] 1.015 Normal NORMAL: 1.010-1.030 [facility] [place] Comment on above: Performed By: #### 2 78114 ####[facility] [place],[address] [place] [address] Specimen Type R Normal [facility] [place] Comment on above: Performed By: #### 2 21694 ####[facility] [place],[address] [place] [address] Urinalysis dipstick W Reflex Microscopic panel (U) SEE BELOW Normal [facility] [place] Comment on above: Result Comment: MICR OSCOPIC Performed By: #### 2 67332 ####[facility] [place],[address] [place] [address] Urobilinog NORM Normal NORMAL: NORMAL [facility] [place] Comment on above: Performed By: #### 2 81722 ####[facility] [place],[address] [place] [address] WBC (U) [#/Vol] /uL Normal 0-5/hpf [facility] [place] Comment on above: Performed By: #### 2 50521 ####[facility] [place],[address] [place] [address] Yeast NONE Normal [facility] [place] Comment on above: Performed By: #### 2 94530 ####[facility] [place],[address] [place] [address] Amorphous NONE Normal [facility] [place] Comment on above: Performed By: #### 2 07381 ####[facility] [place],[address] [place] [address] Bacteria TRACE Normal [facility] [place] Comment on above: Performed By: #### 2 13374 ####[facility] [place],[address] [place] [address] Bilirubin Ql (U) Negative Normal NORMAL: NEGATIVE [facility] [place] Comment on above: Performed By: #### 2 24312 ####[facility] [place],[address] [place] [address] Casts NONE Normal [facility] [place] Comment on above: Performed By: #### 2 65998 ####[facility] [place],[address] [place] [address] Clarity (U) sl.cloudy Normal NORMAL: CLEAR [facility] [place] Comment on above: Performed By: #### 2 14966 ####[facility] [place],[address] [place] [address] 01996 Color (U) alanna Normal NORMAL: YELLOW [facility] [place] Comment on above: Performed By: #### 2 67687 ####[facility] [place],[address] [place] [address] 51404 Crystals LM Nom (Urine sed) NONE Normal [facility] [place] Comment on above: Performed By: #### 2 44380 ####[facility] [place],[address] [place] [address] 90794 Epi Cells MANY Normal [facility] [place] Comment on above: Performed By: #### 2 96675 ####[facility] [place],[address] [place] [address] 16187 Glucose Ql (U) NORM Normal NORMAL: NORMAL [facility] [place] Comment on above: Performed By: #### 2 85483 ####[facility] [place],[address] [place] [address] 93401 Hemoglobin Ql (U) 25 Abnormal NORMAL: NEGATIVE [facility] [place] Comment on above: Performed By: #### 2 71883 ####[facility] [place],[address] [place] [address] 31328 Ketone Negative Normal NORMAL: NEGATIVE [facility] [place] Comment on above: Performed By: #### 2 47975 ####[facility] [place],[address] [place] [address] 40356 Leukocytes Negative Normal NORMAL: NEGATIVE [facility] [place] Comment on above: Performed By: #### 2 23215 ####[facility] [place],[address] [place] [address] 22557 Mucous NONE Normal [facility] [place] Comment on above: Performed By: #### 2 74373 ####[facility] [place],[address] [place] [address] 10791 Nitrite Ql (U) Negative Normal NORMAL: NEGATIVE [facility] [place] Comment on above: Performed By: #### 2 58062 ####[facility] [place],[address] [place] [address] pH (U) 5 [pH] Normal NORMAL: 5.0-8.0 [facility] [place] Comment on above: Performed By: #### 2 52669 ####[facility] [place],[address] [place] [address] Protein Ql (U) 30 Abnormal NORMAL: NEGATIVE [facility] [place] Comment on above: Performed By: #### 2 65967 ####[facility] [place],[address] [place] [address] Rbc 0-5 Normal 0-3/hpf [facility] [place] Comment on above: Performed By: #### 2 38269 ####[facility] [place],[address] [place] [address] Sp [place] 1.025 Normal NORMAL: 1.010-1.030 [facility] [place] Comment on above: Performed By: #### 2 55522 ####[facility] [place],[address] [place] [address] Specimen Type R Normal [facility] [place] Comment on above: Performed By: #### 2 23526 ####[facility] [place],[address] [place] [address] Urinalysis dipstick W Reflex Microscopic panel (U) SEE BELOW Normal [facility] [place] Comment on above: Result Comment: MICR OSCOPIC Performed By: #### 2 58051 ####[facility] [place],[address] [place] [address] Urobilinog 1 Abnormal NORMAL: NORMAL [facility] [place] Comment on above: Performed By: #### 2 20538 ####[facility] [place],[address] [place] [address] Wbc 1-5 Normal 0-5/hpf [facility] [place] Comment on above: Performed By: #### 2 26470 ####[facility] [place],[address] [place] [address] Yeast NONE Normal [facility] [place] Comment on above: Performed By: #### 2 26680 ####[facility] [place],[address] [place] [address] URINE CULTURE [CCL]on 2024 Bacteria identified Cx Nom (U) Normal [facility] [place] Comment on above: Performed By: #### 2 48163 ####[facility] [place],[address] [place] [address] Bacteria identified Cx Nom (U) Normal [facility] [place] Comment on above: Performed By: #### 2 95785 ####[facility] [place],[address] [place], [place] [id number] URINE CULTURE [CCL]on 2024 Bacteria identified Cx Nom (U) Normal [facility] [place] Comment on above: Performed By: #### 2 96352 ####[facility] [place],[address] [place] [address] CBC + DIFFon 01-29-2025 BANDS 2 % Normal 0 - 5 [facility] [place] Comment on above: Performed By: #### 2 60886 ####[facility] [place],[address] [place] [address] Baso # 0.04 x10EE3/UL Normal 0.00 - 0.10 [facility] [place] Comment on above: Performed By: #### 2 83596 ####[facility] [place],[address] [place] [address] Basophils/100 WBC (Bld) 0.2 % Normal 0.0 - 2.0 [facility] Comment on above: Performed By: #### 2 68066 ####[facility] [place],[address] [place] [address] CBC + DIFF Normal [facility] [place] Comment on above: Result Comment: CBC- COMPLETE BLOOD COUNT Performed By: #### 2 00187 ####[facility] [place],[address] [place] [address] EO # 0.12 x10EE3/UL Normal 0.00 - 0.50 [facility] [place] Comment on above: Performed By: #### 2 50171 ####[facility] [place],[address] [place] [address] 70945 Eosinophils/100 WBC (Bld) 0.7 % Normal 0.0 - 7.0 [facility] [place] Comment on above: Performed By: #### 2 76082 ####[facility] [place],[address] [place] [address] 89453 Erythrocyte distribution width (RBC) [Ratio] 13.6 % Normal 12.0 - 15.6 [facility] [place] Comment on above: Performed By: #### 2 81205 ####[address] [address] Hematocrit (Bld) [Volume fraction] 43.6 % Normal 34.0 - 46.0 [facility] [place] Comment on above: Performed By: #### 2 88286 ####[facility] [place],[address] [place] [address] 84865 Hemoglobin (Bld) [Mass/Vol] 15.2 g/dL Normal 12.0 - 16.0 [facility] [place] Comment on above: Performed By: #### 2 89047 ####[address] [address] Lymph # 0.83 x10EE3/UL Normal 0.80 - 2.80 [facility] [place] Comment on above: Performed By: #### 2 03525 ####[facility] [place],[address] [place] [address] 43048 Lymphocytes/100 WBC (Bld) 4.8 % Low 20.0 - 45.0 [facility] [place] Comment on above: Performed By: #### 2 98256 ####[facility] [place],[address] [place] [address] 56848 Lymphocytes/100 WBC (Bld) 4 % Low 20 - 45 [facility] [place] Comment on above: Performed By: #### 2 06505 ####[address],[place] [address] MANUAL DIFF SEE BELOW Normal [facility] [place] Comment on above: Performed By: #### 2 31997 ####[facility] [place],[address] [place] [address] MCH (RBC) [Entitic mass] 34 pg High 27 - 33 [facility] [place] Comment on above: Performed By: #### 2 42800 ####[facility] [place],[address] [place] [address] MCHC 35 X10 3 Normal 32 - 36 [facility] [place] Comment on above: Performed By: #### 2 74983 ####[facility] [place],[address] [place] [address] MCV (RBC) [Entitic vol] 98 fL Normal 80 - 99 [facility] Comment on above: Performed By: #### 2 34834 ####[facility] [place],[address] [place] [address] Moca # 1.74 x10EE3/UL High 0.20 - 1.00 [facility] [place] Comment on above: Performed By: #### 2 12978 ####[facility] [facility] [place],[address] [place] [address] MONOS 11 % High 0 - 10 [facility] [place] Comment on above: Performed By: #### 2 71391 ####[facility] [place],[address] [place] [address] MONOS % 10.0 % Normal 0.0 - 10.0 [facility] [place] Comment on above: Performed By: #### 2 36659 ####[facility] [place],[address] [place] [address] Morphology Efra (Bld) [Interp] REVIEWED Normal [facility] [place] Comment on above: Performed By: #### 2 76152 ####[facility] [place],[address] [place] [address] Neut # 14.65 x10EE3/UL High 1.50 - 7.10 [facility] [place] Comment on above: Performed By: #### 2 66210 ####[facility] [place],[address] [place] [address] 03682 Neutrophils/100 WBC (Bld) 84.3 % High 46.0 - 76.0 [facility] [place] Comment on above: Performed By: #### 2 97457 ####[facility] [place],[address] [place] [address] 05405 PLATELET 437 x10EE3/UL Normal 150 - 450 [facility] [place] Comment on above: Performed By: #### 2 60212 ####[facility] [place],[address] [place] [address] 90964 Platelet mean volume (Bld) [Entitic vol] 8.2 fL Normal 6.6 - 10.5 [facility] [place] Comment on above: Result Comment: AUTO MATED DIFFERENTIAL Performed By: #### 2 54383 ####[facility] [place],[address] [place] [address] 57254 RBC 4.47 x 10EE6/UL Normal 4.10 - 5.30 [facility] [place] Comment on above: Performed By: #### 2 50275 ####[facility] [place],[address] [place] [address] 93124 SEGS 83 % High 46 - 76 [facility] [place] Comment on above: Performed By: #### 2 68357 ####[facility] [place],[address] [place] [address] 82113 WBC 17.4 x 10EE3/UL High 4.5 - 10.8 [facility] [place] Comment on above: Performed By: #### 2 43097 ####[facility] [place],[address] [place] [address] 31564 CMP with eGFRon 01-29-2025 AGE 34 years Normal [facility] [place] Comment on above: Performed By: #### 2 26950 ####[facility] [place],[address] [place] [address] 74437 Albumin [Mass/Vol] 4.1 g/dL Normal 3.4 - 5.0 [facility] [place] Comment on above: Performed By: #### 2 33385 ####[facility] [place],[address] [place] [address] 13464 Albumin/Globulin [Mass ratio] 1.4 {ratio} Normal 0.9 - 1.6 [facility] [place] Comment on above: Performed By: #### 2 31114 ####[facility] [place],[address] [place] [address] 74497 ALK PHOS 91 U/L Normal 46 - 116 [facility] [place] Comment on above: Performed By: #### 2 91544 ####[facility] [place],[address] [place], [place] [id number] ALT [Catalytic activity/Vol] 19 U/L Normal 16 - 63 [facility] [place] Comment on above: Performed By: #### 2 71100 ####[facility] [place],[address] [place] [address] 73431 Anion gap [Moles/Vol] 15 mmol/L Normal 10 - 20 [facility] Comment on above: Performed By: #### 2 64615 ####[facility] [place],[address] [place] [address] 92983 AST [Catalytic activity/Vol] 14 U/L Normal 13 - 39 [facility] [place] Comment on above: Performed By: #### 2 25509 ####[facility] [place],[address] [place] [address] 13677 B/C RATIO 10 ratio Normal 0 - 30 [facility] [place] Comment on above: Performed By: #### 2 66308 ####[facility] [place],[address] [place] [address] 61738 Bilirubin [Mass/Vol] 0.4 mg/dL Normal 0.2 - 1.0 [facility] [place] Comment on above: Performed By: #### 2 02878 ####[facility] [place],[address] [place] [address]24 Calcium [Mass/Vol] 9.4 mg/dL Normal 8.5 - 10.1 [facility] [place] Comment on above: Performed By: #### 2 90420 ####[place] [id number] Chloride [Moles/Vol] 106 mmol/L Normal 98 - 107 [facility] [place] Comment on above: Performed By: #### 2 39014 ####[place] [address] CMP with eGFR Normal [facility] [place] Comment on above: Result Comment: COMP REHENSIVE METABOLIC PANEL Performed By: #### 2 86773 ####[place] [address] CO2 [Moles/Vol] 24.0 mmol/L Normal 21.0 - 32.0 [facility] [place] Comment on above: Performed By: #### 2 00166 ####[place] [address] Creatinine [Mass/Vol] 1.01 mg/dL Normal 0.55 - 1.02 [facility] Comment on above: Performed By: #### 2 85543 ####[place] [address] GFR/1.73 sq M.predicted among non-blacks MDRD (S/P/Bld) [Vol rate/Area] mL/min/{1.73_m2} Normal 60 - 999 [facility] [place] Comment on above: Performed By: #### 2 87257 ####[place] [address] Result Comment: ACCO RDING TO THE NATIONAL KIDNEY DISEASE EDUCATION PROGRAM(NKDE), A NORMAL eGFRIS A VALUE GREATER THAN OR EQUAL TO 60 ML/MIN/1.73 SQ METERS.CHRONIC KIDNEY DISEASE: <60mL/MIN/1.73 SQ METERSKIDNEY FAILURE: <15mL/MIN/1.73 SQ METERSTHIS TEST SHOULD ONLY BE USED FOR PATIENTS 18 YEARS OF AGE AND OLDER. Globulin (S) [Mass/Vol] 3.0 g/dL Normal 1.5 - 3.8 [facility] Comment on above: Performed By: #### 2 68710 ####[facility] [place],[address] [place] [address] 70823 Glucose [Mass/Vol] 166 mg/dL High 74 - 106 [facility] [place] Comment on above: Performed By: #### 2 17254 ####[facility] [place],[address] [place] [address] 91115 Potassium [Moles/Vol] 3.3 mmol/L Low 3.5 - 5.1 [facility] Comment on above: Performed By: #### 2 25527 ####[facility] [place],[address] [place] [address] 57127 Protein [Mass/Vol] 7.1 g/dL Normal 6.4 - 8.2 [facility] [place] Comment on above: Performed By: #### 2 86057 ####[facility] [place],[address] [place] [address] 09400 Sodium [Moles/Vol] 142 mmol/L Normal 136 - 145 [facility] [place] Comment on above: Performed By: #### 2 49144 ####[facility] [place],[address] [place] [address] 54713 Urea nitrogen [Mass/Vol] 10 mg/dL Normal 7 - 18 [facility] [place] Comment on above: Performed By: #### 2 43409 ####[facility] [place],[address] [place] [address] 98903 ED MED ADMINISTRATION DETAIL on 01-29-2025 ED MED ADMINISTRATION DETAIL Normal [facility] [place] ED NURSES CLINICAL NOTEon ED NURSES CLINICAL NOTE Normal [facility] ED ORDER SHEET (CPOE ONLY)on 01-29-2025 ED ORDER SHEET (CPOE ONLY) Normal [facility] [place] ED PHYSICIAN CLINICAL REPORT on 01-29-2025 ED PHYSICIAN CLINICAL REPORT Normal [facility] [place] ED PHYSICIAN DISCHARGE REPOR Ton 01-29-2025 ED PHYSICIAN DISCHARGE REPORT Normal [facility] [place] ED SUPER BILLon 01-29-2025 ED SUPER BILL Normal [facility] [place] ED VISIT SUMMARYon ED VISIT SUMMARY Normal [facility] [place] ED VITALS FLOW SHEETon 01-29 ED VITALS FLOW SHEET Normal [facility] [place] SERUM QUALon 01-29 EXTERNAL QC DONE? YES Normal [facility] [place] Comment on above: Performed By: #### 2 73650 ####[facility] [place],[address] [place] [address] INTERNAL QC PASS Normal [facility] [place] Comment on above: Performed By: #### 2 25960 ####[facility] [place],[address] [place] [address] SER Negative Normal NEGATIVE [facility] [place] Comment on above: Performed By: #### 2 67232 ####[facility] [place],[address] [place], [place] [id number] URINALYSISon 01-29-2025 Amorphous NONE Normal [facility] [place] Comment on above: Performed By: #### 2 93166 ####[facility] [place],[address] [place], [place] [id number] Bacteria TRACE Normal [facility] [place] Comment on above: Performed By: #### 2 82029 ####[facility] [place],[address] [place] [address] 58616 Bilirubin Ql (U) Negative Normal NORMAL: NEGATIVE [facility] [place] Comment on above: Performed By: #### 2 18949 ####[facility] [place],[address] [place] [address] 53866 Casts NONE Normal [facility] [place] Comment on above: Performed By: #### 2 12180 ####[facility] [place],[address] [place] [address] 87586 Clarity (U) SL. CLOUDY Abnormal NORMAL: CLEAR [facility] [place] Comment on above: Performed By: #### 2 20449 ####[facility] [place],[address] [place] [address] Color (U) p.yel Normal NORMAL: YELLOW [facility] [place] Comment on above: Performed By: #### 2 24079 ####[facility] [place],[address] [place], [place] [id number] Crystals LM Nom (Urine sed) NONE Normal [facility] [place] Comment on above: Performed By: #### 2 32556 ####[facility] [place],[address] [place], [place] [id number] Epi Cells NONE Normal [facility] [place] Comment on above: Performed By: #### 2 72458 ####[facility] [place],[address] [place] [address] Glucose Ql (U) NORM Normal NORMAL: NORMAL [facility] [place] Comment on above: Performed By: #### 2 66555 ####[facility] [place],[address] [place] [address] Hemoglobin Ql (U) 150 Abnormal NORMAL: NEGATIVE [facility] [place] Comment on above: Performed By: #### 2 91189 ####[facility] [place],[address] [place], [place] [phone] Ketone Negative Normal NORMAL: NEGATIVE [facility] [place] Comment on above: Performed By: #### 2 25582 ####[facility] [place],[address] [place] [address] 15729 Leukocytes 500 Abnormal NORMAL: NEGATIVE [facility] [place] Comment on above: Performed By: #### 2 68838 ####[facility] [place],[address] [place] [address] 80938 Mucous NONE Normal [facility] [place] Comment on above: Performed By: #### 2 11844 ####[facility] [place],[address] [place] [address] 97221 Nitrite Ql (U) Negative Normal NORMAL: NEGATIVE [facility] [place] Comment on above: Performed By: #### 2 85644 ####[facility] [place],[address],[place] [address] pH (U) 7 [pH] Normal NORMAL: 5.0-8.0 [facility] [place] Comment on above: Performed By: #### 2 52028 ####[facility] [place],[address] [place] [address] Protein Ql (U) 15 Abnormal NORMAL: NEGATIVE [facility] [place] Comment on above: Performed By: #### 2 16198 ####[facility] [place],[address] [place] [address] Rbc 5-10 Normal 0-3/hpf [facility] [place] Comment on above: Performed By: #### 2 29307 ####[facility] [place],[address] [place] [address] Sp [place] 1.010 Normal NORMAL: 1.010-1.030 [facility] [place] Comment on above: Performed By: #### 2 79739 ####[facility] [place],[address] [place] [address] Specimen Type R Normal [facility] [place] Comment on above: Performed By: #### 2 19660 ####[facility] [place],[address] [place] [address] Urinalysis dipstick W Reflex Microscopic panel (U) SEE BELOW Normal [facility] [place] Comment on above: Result Comment: MICR OSCOPIC Performed By: #### 2 86294 ####[facility] [place],[address] [place] [address] Urobilinog NORM Normal NORMAL: NORMAL [facility] [place] Comment on above: Performed By: #### 2 16437 ####[facility] [place],[address] [place] [address] Wbc 16-25 Normal 0-5/hpf [facility] [place] Comment on above: Performed By: #### 2 66337 ####[facility] [place],[address] [place] [address] Yeast 1+ Normal [facility] [place] Comment on above: Performed By: #### 2 09682 ####[facility] [place],[address] [place] [address] 12975 CBC + DIFFon 01-21-2025 Baso # 0.03 x10EE3/UL Normal 0.00 - 0.10 [facility] [place] Comment on above: Performed By: #### 2 06491 ####[facility] [place],[address] [place] [address] 30130 Basophils/100 WBC (Bld) 0.3 % Normal 0.0 - 2.0 [facility] Comment on above: Performed By: #### 2 76952 ####[facility] [place],[address] [place] [address] 85435 CBC + DIFF Normal [facility] [place] Comment on above: Result Comment: CBC- COMPLETE BLOOD COUNT Performed By: #### 2 07480 ####[facility] [place],[address] [place] [address] 75083 EO # 0.06 x10EE3/UL Normal 0.00 - 0.50 [facility] [place] Comment on above: Performed By: #### 2 31386 ####[facility] [place],[address] [place] [address] 16910 Eosinophils/100 WBC (Bld) 0.5 % Normal 0.0 - 7.0 [facility] [place] Comment on above: Performed By: #### 2 76510 ####[facility] [place],[address] [place] [address] 36879 Erythrocyte distribution width (RBC) [Ratio] 13.7 % Normal 12.0 - 15.6 [facility] [place] Comment on above: Performed By: #### 2 62120 ####[facility] [place],[address] [place] [address] 30321 Hematocrit (Bld) [Volume fraction] 43.1 % Normal 34.0 - 46.0 [facility] [place] Comment on above: Performed By: #### 2 56416 ####[facility] [place],[address] [place] [address] 66613 Hemoglobin (Bld) [Mass/Vol] 14.8 g/dL Normal 12.0 - 16.0 [facility] [place] Comment on above: Performed By: #### 2 11447 ####[facility] [place],[address] [place] [address] Lymph # 1.74 x10EE3/UL Normal 0.80 - 2.80 [facility] [place] Comment on above: Performed By: #### 2 99367 ####[facility] [place],[address] [place] [address] Lymphocytes/100 WBC (Bld) 12.8 % Low 20.0 - 45.0 [facility] [place] Comment on above: Performed By: #### 2 01120 ####[facility] [place],[address] [place], [place] [id number] MANUAL DIFF N/A Normal [facility] [place] Comment on above: Performed By: #### 2 42485 ####[facility] [place],[address] [place] [address] MCH (RBC) [Entitic mass] 34 pg High 27 - 33 [facility] [place] Comment on above: Performed By: #### 2 95593 ####[facility] [place],[address] [place], [place] [id number] MCHC 34 X10 3 Normal 32 - 36 [facility] [place] Comment on above: Performed By: #### 2 88716 ####[facility] [place],[address] [place] [address] 08260 MCV (RBC) [Entitic vol] 97 fL Normal 80 - 99 [facility] Comment on above: Performed By: #### 2 78486 ####[facility] [place],[address] [place] [address] 04237 Moca # 1.16 x10EE3/UL High 0.20 - 1.00 [facility] [place] Comment on above: Performed By: #### 2 60451 ####[facility] [place],[address] [place] [address] 11507 MONOS % 8.6 % Normal 0.0 - 10.0 [facility] [place] Comment on above: Performed By: #### 2 61567 ####[facility] [place],[address] [place] [address] 12763 Morphology Efra (Bld) [Interp] N/A Normal [facility] [place] Comment on above: Performed By: #### 2 51258 ####[facility] [place],[address] [place] [address] 16492 Neut # 10.59 x10EE3/UL High 1.50 - 7.10 [facility] [place] Comment on above: Performed By: #### 2 42796 ####[facility] [place],[address] [place] [address] 38364 Neutrophils/100 WBC (Bld) 78.0 % High 46.0 - 76.0 [facility] [place] Comment on above: Performed By: #### 2 67426 ####[facility] [place],[address] [place] [address] 38377 PLATELET 385 x10EE3/UL Normal 150 - 450 [facility] [place] Comment on above: Performed By: #### 2 72016 ####[facility] [place],[address] [place] [address] 28771 Platelet mean volume (Bld) [Entitic vol] 7.3 fL Normal 6.6 - 10.5 [facility] [place] Comment on above: Result Comment: AUTO MATED DIFFERENTIAL Performed By: #### 2 74769 ####[facility] [place],[address] [place] [address] 70360 RBC 4.43 x 10EE6/UL Normal 4.10 - 5.30 [facility] [place] Comment on above: Performed By: #### 2 41878 ####[facility] [place],[address] [place] [address] 30081 WBC 13.6 x 10EE3/UL High 4.5 - 10.8 [facility] [place] Comment on above: Performed By: #### 2 94133 ####[facility] [place],[address] [place] [address] 03548 CMP with eGFRon 01-21-2025 AGE 34 years Normal [facility] [place] Comment on above: Performed By: #### 2 53435 ####[facility] [place],[address] [place] [address] 56121 Albumin [Mass/Vol] 4.1 g/dL Normal 3.4 - 5.0 [facility] [place] Comment on above: Performed By: #### 2 06844 ####[facility] [place],[address] [place], [place] [id number] Albumin/Globulin [Mass ratio] 1.2 {ratio} Normal 0.9 - 1.6 [facility] [place] Comment on above: Performed By: #### 2 38947 ####[facility] [place],[address] [place], [place] [id number] ALK PHOS 77 U/L Normal 46 - 116 [facility] [place] Comment on above: Performed By: #### 2 62583 ####[facility] [place],[address] [place], [place] [id number] ALT [Catalytic activity/Vol] 13 U/L Low 16 - 63 [facility] [place] Comment on above: Performed By: #### 2 76759 ####[facility] [place],[address] [place] [address] 46195 Anion gap [Moles/Vol] 16 mmol/L Normal 10 - 20 [facility] Comment on above: Performed By: #### 2 26850 ####[facility] [place],[address] [place] [address] 02481 AST [Catalytic activity/Vol] 13 U/L Normal 13 - 39 [facility] [facility] [place] Comment on above: Performed By: #### 2 94996 ####[facility] [place],[address] [place] [address]29 B/C RATIO 15 ratio Normal 0 - 30 [facility] [place] Comment on above: Performed By: #### 2 74712 ####[facility] [place],[address] [place] [address] 69964 Bilirubin [Mass/Vol] 0.4 mg/dL Normal 0.2 - 1.0 [facility] [place] Comment on above: Performed By: #### 2 93072 ####[place] [address] Calcium [Mass/Vol] 9.2 mg/dL Normal 8.5 - 10.1 [facility] [place] Comment on above: Performed By: #### 2 61633 ####[place] [address] Chloride [Moles/Vol] 103 mmol/L Normal 98 - 107 [facility] [place] Comment on above: Performed By: #### 2 09203 ####[place] [address] CMP with eGFR Normal [facility] [place] Comment on above: Result Comment: COMP REHENSIVE METABOLIC PANEL Performed By: #### 2 09936 ####[place] [address] CO2 [Moles/Vol] 23.4 mmol/L Normal 21.0 - 32.0 [facility] [place] Comment on above: Performed By: #### 2 06706 ####[place] [address] Creatinine [Mass/Vol] 0.87 mg/dL Normal 0.55 - 1.02 [facility] Comment on above: Performed By: #### 2 98396 ####[place] [address] GFR/1.73 sq M.predicted among non-blacks MDRD (S/P/Bld) [Vol rate/Area] mL/min/{1.73_m2} Normal 60 - 999 [facility] [place] Comment on above: Performed By: #### 2 17035 ####[facility] [place],[address] [place] [address] Result Comment: ACCO RDING TO THE NATIONAL KIDNEY DISEASE EDUCATION PROGRAM(NKDE), A NORMAL eGFRIS A VALUE GREATER THAN OR EQUAL TO 60 ML/MIN/1.73 SQ METERS.CHRONIC KIDNEY DISEASE: <60mL/MIN/1.73 SQ METERSKIDNEY FAILURE: <15mL/MIN/1.73 SQ METERSTHIS TEST SHOULD ONLY BE USED FOR PATIENTS 18 YEARS OF AGE AND OLDER. Globulin (S) [Mass/Vol] 3.4 g/dL Normal 1.5 - 3.8 [facility] Comment on above: Performed By: #### 2 30329 ####[facility] [place],[address] [place] [address] Glucose [Mass/Vol] 108 mg/dL High 74 - 106 [facility] [place] Comment on above: Performed By: #### 2 14231 ####[address] [address] Potassium [Moles/Vol] 3.2 mmol/L Low 3.5 - 5.1 [facility] Comment on above: Performed By: #### 2 41705 ####[facility] [place],[address] [place] [address]64 Protein [Mass/Vol] 7.5 g/dL Normal 6.4 - 8.2 [facility] [place] Comment on above: Performed By: #### 2 97353 ####[address] [address] Sodium [Moles/Vol] 139 mmol/L Normal 136 - 145 [facility] [place] Comment on above: Performed By: #### 2 34482 ####[facility] [place],[address] [place] [address] 35151 Urea nitrogen [Mass/Vol] 13 mg/dL Normal 7 - 18 [facility] [place] Comment on above: Performed By: #### 2 71500 ####[address] [address] CORONAVIRUS (SARS) ANTIGEN T ESTon 01-21-2025 EXTERNAL QC DONE? YES Normal [facility] [place] Comment on above: Performed By: #### 2 59747 ####[place] [address],[place] [address] INTERNAL CONTROL PASS Normal [facility] [place] Comment on above: Performed By: #### 2 74111 ####[facility] [place],[address] [place] [address] 04857 SARS ANTIGEN Negative Normal NORMAL: NEGATIVE [facility] [place] Comment on above: Performed By: #### 2 09685 ####[facility] [place],[address] [place] [address]18 SEND TO IC? NO Normal [facility] [place] Comment on above: Result Comment: SARS -CoV-2THIS TEST IS BEING USED UNDER THE FDA EUA PROCEDURE. THIS ASSAY HAS BEENVALIDATED AT [facility] FOR USE WITH NASAL AND NASOPHARYNGEAL SWABSPECIMENS.INTERPRETIVE [...] BECONSIDERED BY HEALTHCARE PROVIDERS IN CONSULTATION WITH [facility]. Performed By: #### 2 70072 ####[facility] [place],[address] [place], [place] [id number] ED MED ADMINISTRATION DETAIL on 01-21-2025 ED MED ADMINISTRATION DETAIL Normal [facility] [place] ED NURSES CLINICAL NOTEon ED NURSES CLINICAL NOTE Normal [facility] ED ORDER SHEET (CPOE ONLY)on 01-21-2025 ED ORDER SHEET (CPOE ONLY) Normal [facility] [place] ED PHYSICIAN CLINICAL REPORT on 01-21-2025 ED PHYSICIAN CLINICAL REPORT Normal [facility] [place] ED PHYSICIAN DISCHARGE REPOR Ton 01-21-2025 ED PHYSICIAN DISCHARGE REPORT Normal [facility] [place] ED SUPER BILLon 01-21-2025 ED SUPER BILL Normal [facility] [place] ED VISIT SUMMARYon ED VISIT SUMMARY Normal [facility] [place] ED VITALS FLOW SHEETon 01-21 ED VITALS FLOW SHEET Normal [facility] [place] INFLUENZA VIRUS RAPID A/Bon 01-21-2025 INFLUENZA VIRUS RAPID A/B Normal [facility] [place] Comment on above: Performed By: #### 2 32696 ####[facility] [place],[address] [place], [place] [id number] LACTATEon 01-21-2025 Lactate [Moles/Vol] 1.0 mmol/L Normal 0.4 - 2.0 [facility] [place] Comment on above: Performed By: #### 2 83924 ####[facility] [place],[address] [place] [address] LIPASEon 01-21-2025 Lipase [Catalytic activity/Vol] 10.0 U/L Low 15.0 - 78.0 [facility] [place] Comment on above: Result Comment: *PLE ASE NOTE THAT RANGES FOR LIPASE HAVE CHANGED OF 10/31/23 DUE TO AN ASSAYUPDATE BY THE HUMANITIES INSTRUCTOR.THE NEW ASSAY RANGE IS 6-250 U/L, WITH A REFERENCERANGE OF 16-77 U/L. Performed By: #### 2 37638 ####[facility] [place],[address] [place] [address] SERUM QUALon 01-21 EXTERNAL QC DONE? YES Normal [facility] [place] Comment on above: Performed By: #### 2 14456 ####[facility] [place],[address] [place] [address] INTERNAL QC PASS Normal [facility] [place] Comment on above: Performed By: #### 2 02919 ####[facility] [place],[address] [place] [address] SER Negative Normal NEGATIVE [facility] [place] Comment on above: Performed By: #### 2 98758 ####[facility] [place],[address] [place] [address] IR NEPHROSTOMY EXCHANGEon IR NEPHROSTOMY EXCHANGE Normal [facility] IR PORT REMOVALon 12-22-2024 IR PORT REMOVAL Normal [facility] LABORATORYOrdered By: Nell Gillespie on 12-22-2024 Beta HCG ( test) Ql (U) Negative (12/22/24 10:06 AM) [facility] Work Phone: ED MED ADMINISTRATION DETAIL on 12-11-2024 ED MED ADMINISTRATION DETAIL Normal [facility] [place] ED NURSES CLINICAL NOTEon ED NURSES CLINICAL NOTE Normal [facility] ED ORDER SHEET (CPOE ONLY)on 12-11-2024 ED ORDER SHEET (CPOE ONLY) Normal [facility] [place] ED PHYSICIAN CLINICAL REPORT on 12-11-2024 ED PHYSICIAN CLINICAL REPORT Normal [facility] [place] ED PHYSICIAN DISCHARGE REPOR Ton 12-11-2024 ED PHYSICIAN DISCHARGE REPORT Normal [facility] [place] ED SUPER BILLon 12-11-2024 ED SUPER BILL Normal [facility] [place] ED VISIT SUMMARYon ED VISIT SUMMARY Normal [facility] [place] ED VITALS FLOW SHEETon 12-11 ED VITALS FLOW SHEET Normal [facility] [place] CBC + DIFFon 12-10-2024 Baso # 0.04 x10EE3/UL Normal 0.00 - 0.10 [facility] [place] Comment on above: Performed By: #### 2 63346 ####[facility] [place],[address] [place] [address] 26060 Basophils/100 WBC (Bld) 0.3 % Normal 0.0 - 2.0 [facility] Comment on above: Performed By: #### 2 38300 ####[facility] [place],[address] [place] [address] CBC + DIFF Normal [facility] [place] Comment on above: Result Comment: CBC- COMPLETE BLOOD COUNT Performed By: #### 2 01143 ####[facility] [place],[address] [place] [address] EO # 0.18 x10EE3/UL Normal 0.00 - 0.50 [facility] [place] Comment on above: Performed By: #### 2 39917 ####[facility] [place],[address] [place], [place] [id number] Eosinophils/100 WBC (Bld) 1.6 % Normal 0.0 - 7.0 [facility] [place] Comment on above: Performed By: #### 2 14816 ####[facility] [place],[address] [place] [address] Erythrocyte distribution width (RBC) [Ratio] 14.4 % Normal 12.0 - 15.6 [facility] [place] Comment on above: Performed By: #### 2 45376 ####[facility] [place],[address] [place] [address] Hematocrit (Bld) [Volume fraction] 42.6 % Normal 34.0 - 46.0 [facility] [place] Comment on above: Performed By: #### 2 85676 ####[facility] [place],[address] [place], [place] [id number] Hemoglobin (Bld) [Mass/Vol] 14.4 g/dL Normal 12.0 - 16.0 [facility] [place] Comment on above: Performed By: #### 2 08069 ####[facility] [place],[address] [place] [address] Lymph # 1.79 x10EE3/UL Normal 0.80 - 2.80 [facility] [place] Comment on above: Performed By: #### 2 67539 ####[facility] [place],[address] [place] [address] Lymphocytes/100 WBC (Bld) 15.3 % Low 20.0 - 45.0 [facility] [place] Comment on above: Performed By: #### 2 42241 ####[facility] [place],[address] [place] [address] MANUAL DIFF N/A Normal [facility] [place] Comment on above: Performed By: #### 2 59440 ####[facility] [place],[address] [place] [address] MCH (RBC) [Entitic mass] 33 pg Normal 27 - 33 [facility] [place] Comment on above: Performed By: #### 2 71142 ####[facility] [place],[address] [place] [address] MCHC 34 X10 3 Normal 32 - 36 [facility] [place] Comment on above: Performed By: #### 2 54497 ####[facility] [place],[address] [place] [address] MCV (RBC) [Entitic vol] 98 fL Normal 80 - 99 [facility] Comment on above: Performed By: #### 2 94739 ####[facility] [place],[address] [place] [address] Moca # 0.96 x10EE3/UL Normal 0.20 - 1.00 [facility] [place] Comment on above: Performed By: #### 2 64935 ####[facility] [place],[address] [place] [address]846 MONOS % 8.2 % Normal 0.0 - 10.0 [facility] [place] Comment on above: Performed By: #### 2 59090 ####[facility] [place],[address] [place] [address] Morphology Efra (Bld) [Interp] N/A Normal [facility] [place] Comment on above: Performed By: #### 2 39029 ####[facility] [place],[address] [place] [address] Neut # 8.76 x10EE3/UL High 1.50 - 7.10 [facility] [place] Comment on above: Performed By: #### 2 89061 ####[facility] [place],[address] [place] [address]86 Neutrophils/100 WBC (Bld) 74.6 % Normal 46.0 - 76.0 [facility] [place] Comment on above: Performed By: #### 2 00473 ####[facility] [place],[address] [place] [address] 73792 PLATELET 444 x10EE3/UL Normal 150 - 450 [facility] [place] Comment on above: Performed By: #### 2 96168 ####[facility] [place],[address] [place] [address] 33168 Platelet mean volume (Bld) [Entitic vol] 7.1 fL Normal 6.6 - 10.5 [facility] [place] Comment on above: Result Comment: AUTO MATED DIFFERENTIAL Performed By: #### 2 44641 ####[facility] [place],[address] [place] [address]8559 RBC 4.35 x 10EE6/UL Normal 4.10 - 5.30 [facility] [place] Comment on above: Performed By: #### 2 72168 ####[facility] [place],[address] [place] [address]2447 WBC 11.7 x 10EE3/UL High 4.5 - 10.8 [facility] [place] Comment on above: Performed By: #### 2 98046 ####[facility] [place],[address] [place] [address]15 CMP with eGFRon 12-10-2024 AGE 33 years Normal [facility] [place] Comment on above: Performed By: #### 2 72672 ####[facility] [place],[address] [place] [address] 26446 Albumin [Mass/Vol] 4.2 g/dL Normal 3.4 - 5.0 [facility] [place] Comment on above: Performed By: #### 2 94243 ####[facility] [place],[address] [place] [address]231 Albumin/Globulin [Mass ratio] 1.3 {ratio} Normal 0.9 - 1.6 [facility] [place] Comment on above: Performed By: #### 2 07780 ####[facility] [place],[address] [place] [address] 89582 ALK PHOS 82 U/L Normal 46 - 116 [facility] [place] Comment on above: Performed By: #### 2 95601 ####[facility] [place],[address] [place] [address] 07013 ALT [Catalytic activity/Vol] 12 U/L Low 16 - 63 [facility] [place] Comment on above: Performed By: #### 2 33700 ####[facility] [place],[address] [place] [address]63 Anion gap [Moles/Vol] 14 mmol/L Normal 10 - 20 [facility] Comment on above: Performed By: #### 2 82869 ####[facility] [place],[address] [place] [address] 13830 AST [Catalytic activity/Vol] 14 U/L Normal 13 - 39 [facility] [place] Comment on above: Performed By: #### 2 03765 ####[facility] [place],[address] [place] [address] 98041 B/C RATIO 11 ratio Normal 0 - 30 [facility] [place] Comment on above: Performed By: #### 2 89511 ####[facility] [place],[address] [place] [address]322 Bilirubin [Mass/Vol] 0.4 mg/dL Normal 0.2 - 1.0 [facility] [place] Comment on above: Performed By: #### 2 10572 ####[facility] [place],[address] [place] [address]43 Calcium [Mass/Vol] 9.1 mg/dL Normal 8.5 - 10.1 [facility] [place] Comment on above: Performed By: #### 2 39024 ####[facility] [place],[address] [place] [address] Chloride [Moles/Vol] 102 mmol/L Normal 98 - 107 [facility] [place] Comment on above: Performed By: #### 2 92661 ####[facility] [place],[address] [place] [address] 41809 CMP with eGFR Normal [facility] [place] Comment on above: Result Comment: COMP REHENSIVE METABOLIC PANEL Performed By: #### 2 82474 ####[facility] [place],[address] [place] [address]249 CO2 [Moles/Vol] 28.0 mmol/L Normal 21.0 - 32.0 [facility] [place] Comment on above: Performed By: #### 2 01918 ####[facility] [place],[address] [place] [address]19 Creatinine [Mass/Vol] 1.09 mg/dL High 0.55 - 1.02 [facility] Comment on above: Performed By: #### 2 43217 ####[facility] [place],[address] [place] [address] 62692 eGFR 57 ML/MINUTE Low 60 - 999 [facility] [place] Comment on above: Performed By: #### 2 38843 ####[facility] [place],[address] [place] [address]3937 GFR/1.73 sq M.predicted among non-blacks MDRD (S/P/Bld) [Vol rate/Area] mL/min/{1.73_m2} Normal 60 - 999 [facility] [place] Comment on above: Result Comment: ACCO RDING TO THE NATIONAL KIDNEY DISEASE EDUCATION PROGRAM(NKDE), A NORMAL eGFRIS A VALUE GREATER THAN OR EQUAL TO 60 ML/MIN/1.73 SQ METERS.CHRONIC KIDNEY DISEASE: <60mL/MIN/1.73 SQ METERSKIDNEY FAILURE: <15mL/MIN/1.73 SQ METERSTHIS TEST SHOULD ONLY BE USED FOR PATIENTS 18 YEARS OF AGE AND OLDER. Performed By: #### 2 49426 ####[facility] [place],[address] [place] [address] Globulin (S) [Mass/Vol] 3.2 g/dL Normal 1.5 - 3.8 [facility] Comment on above: Performed By: #### 2 77406 ####[facility] [place],[address] [place] [address]51 Glucose [Mass/Vol] 91 mg/dL Normal 74 - 106 [facility] [place] Comment on above: Performed By: #### 2 87285 ####[address] [address] Potassium [Moles/Vol] 3.7 mmol/L Normal 3.5 - 5.1 [facility] Comment on above: Performed By: #### 2 91006 ####[facility] [place],[address] [place] [address] 19289 Protein [Mass/Vol] 7.4 g/dL Normal 6.4 - 8.2 [facility] [place] Comment on above: Performed By: #### 2 80666 ####[facility] [place],[address] [place] [address]479 Sodium [Moles/Vol] 140 mmol/L Normal 136 - 145 [facility] [place] Comment on above: Performed By: #### 2 06409 ####[facility] [place],[address] [place] [address] 61510 Urea nitrogen [Mass/Vol] 12 mg/dL Normal 7 - 18 [facility] [place] Comment on above: Performed By: #### 2 00590 ####[address] [address] CPKon 12-10-2024 CPK 86 U/L Normal 26 - 192 [facility] [place] Comment on above: Performed By: #### 2 04145 ####[facility] [place],[address] [place] [address] CT ABDOMEN/PELVIS Won 2024 CT ABDOMEN/PELVIS W Normal [facility] [place] SERUM QUALon 12-10 EXTERNAL QC DONE? YES Normal [facility] [place] Comment on above: Performed By: #### 2 22180 ####[facility] [place],[address] [place] [address] INTERNAL QC PASS Normal [facility] [place] Comment on above: Performed By: #### 2 22317 ####[facility] [place],[address] [place] [address] SER Negative Normal NEGATIVE [facility] [place] Comment on above: Performed By: #### 2 05468 ####[facility] [place],[address] [place], [place] [id number] URINALYSISon 12-10-2024 Bilirubin Ql (U) Negative Normal NORMAL: NEGATIVE [facility] [place] Comment on above: Performed By: #### 2 21288 ####[facility] [place],[address] [place], [place] [id number] Clarity (U) clear Normal NORMAL: CLEAR [facility] [place] Comment on above: Performed By: #### 2 09987 ####[facility] [place],[address] [place] [address]178 Color (U) yellow Normal NORMAL: YELLOW [facility] [place] Comment on above: Performed By: #### 2 87135 ####[facility] [place],[address] [place] [address]6663 Glucose Ql (U) NORM Normal NORMAL: NORMAL [facility] [place] Comment on above: Performed By: #### 2 10991 ####[facility] [place],[address] [place] [address] 95680 Hemoglobin Ql (U) Negative Normal NORMAL: NEGATIVE [facility] [place] Comment on above: Performed By: #### 2 48768 ####[facility] [place],[address] [place] [address] Ketone Negative Normal NORMAL: NEGATIVE [facility] [place] Comment on above: Performed By: #### 2 40161 ####[facility] [place],[address] [place], [place] [id number] Leukocytes Negative Normal NORMAL: NEGATIVE [facility] [place] Comment on above: Performed By: #### 2 84495 ####[facility] [place],[address] [place] [address] Nitrite Ql (U) Negative Normal NORMAL: NEGATIVE [facility] [place] Comment on above: Performed By: #### 2 03152 ####[facility] [place],[address] [place] [address] pH (U) 7 [pH] Normal NORMAL: 5.0-8.0 [facility] [place] Comment on above: Performed By: #### 2 27779 ####[facility] [place],[address] [place] [address] Protein Ql (U) Negative Normal NORMAL: NEGATIVE [facility] [place] Comment on above: Performed By: #### 2 23869 ####[facility] [place],[address] [place] [address] Sp [place] 1.015 Normal NORMAL: 1.010-1.030 [facility] [place] Comment on above: Performed By: #### 2 02171 ####[facility] [place],[address] [place] [address] Specimen Type R Normal [facility] [place] Comment on above: Performed By: #### 2 55009 ####[facility] [place],[address] [place] [address] Urinalysis dipstick W Reflex Microscopic panel (U) NOT INDICATED Normal [facility] [place] Comment on above: Performed By: #### 2 75906 ####[facility] [place],[address] [place] [address] Urobilinog NORM Normal NORMAL: NORMAL [facility] [place] Comment on above: Performed By: #### 2 77612 ####[facility] [place],[address] [place] [address] [employer]ist Cytology Reporton 2024 Nuclear Operations Specialist Cytology Report Normal [facility] HPVon 11-18-2024 HPV Interp Normal See Interp HPVN [facility] Comment on above: Order Comment: Order placed by AP_HPV_ORDER rule from [id number] Result Comment: High Risk HPV Typing: NEGATIVEHPV types 16, 18, 31, 33, 35, 39, 45, 51, 52, 56, 58, 59, 66 and 68 DNA wereundetectable or below the pre-set threshold.The sam High-Risk HPV DNA Test is not intended for use as a screening device forPap normal women under age 30 and is not intended to substitute for regular Papscreening.The sam High-Risk HPV DNA Test is designed to augment existing methods for thedetection of cervical disease and should be used in conjunction with clinicalinformation derived from other diagnostic and screening tests, physical examinationsand full medical history in accordance with appropriate patient managementprocedures.NOTE: A negative result does not preclude the presence of HPV infection because resultsdepend on adequate specimen collection, absence of inhibitors and sufficientDNA to be detected.See Interp HPVN Performed By: #### H PV ####[place] [address] HPV Source Cervix Normal [facility] Comment on above: Order Comment: Order placed by AP_HPV_ORDER rule from [id number] Performed By: #### H PV ####[place] [address] CBLon 11-11-2024 CBL Normal [facility] URINE CULTURE [CCL]on 2024 Bacteria identified Cx Nom (U) Normal [facility] [place] Comment on above: Performed By: #### 2 88076 ####[facility] [place],[address] [place], [place] [id number] CBC + DIFFon 11-06-2024 Baso # 0.03 x10EE3/UL Normal 0.00 - 0.10 [facility] [place] Comment on above: Performed By: #### 2 68373 ####[facility] [place],[address] [place] [address] Basophils/100 WBC (Bld) 0.3 % Normal 0.0 - 2.0 [facility] Comment on above: Performed By: #### 2 03148 ####[facility] [place],[address] [place] [address] CBC + DIFF Normal [facility] [place] Comment on above: Result Comment: CBC- COMPLETE BLOOD COUNT Performed By: #### 2 14546 ####[facility] [place],[address] [place] [address] EO # 0.15 x10EE3/UL Normal 0.00 - 0.50 [facility] [place] Comment on above: Performed By: #### 2 36153 ####[place] [id number] Eosinophils/100 WBC (Bld) 1.5 % Normal 0.0 - 7.0 [facility] [place] Comment on above: Performed By: #### 2 59943 ####[facility] [place],[address] [place] [address] Erythrocyte distribution width (RBC) [Ratio] 14.8 % Normal 12.0 - 15.6 [facility] [place] Comment on above: Performed By: #### 2 26990 ####[facility] [place],[address] [place] [address] Hematocrit (Bld) [Volume fraction] 40.4 % Normal 34.0 - 46.0 [facility] [place] Comment on above: Performed By: #### 2 68813 ####[facility] [place],[address] [place], [place] [id number] Hemoglobin (Bld) [Mass/Vol] 13.9 g/dL Normal 12.0 - 16.0 [facility] [place] Comment on above: Performed By: #### 2 33194 ####[facility] [place],[address] [place], [place] [id number] Lymph # 2.56 x10EE3/UL Normal 0.80 - 2.80 [facility] [place] Comment on above: Performed By: #### 2 99329 ####[facility] [place],[address] [place] [address] Lymphocytes/100 WBC (Bld) 25.3 % Normal 20.0 - 45.0 [facility] [place] Comment on above: Performed By: #### 2 75584 ####[facility] [place],[address] [place] [address] MANUAL DIFF N/A Normal [facility] [place] Comment on above: Performed By: #### 2 42205 ####[facility] [place],[address] [place] [address] MCH (RBC) [Entitic mass] 33 pg Normal 27 - 33 [facility] [place] Comment on above: Performed By: #### 2 78668 ####[place] [address] MCHC 34 X10 3 Normal 32 - 36 [facility] [place] Comment on above: Performed By: #### 2 99234 ####[place] [id number] MCV (RBC) [Entitic vol] 97 fL Normal 80 - 99 [facility] Comment on above: Performed By: #### 2 53244 ####[place] [address] Moca # 0.91 x10EE3/UL Normal 0.20 - 1.00 [facility] [place] Comment on above: Performed By: #### 2 32037 ####[place] [id number] MONOS % 9.0 % Normal 0.0 - 10.0 [facility] [place] Comment on above: Performed By: #### 2 28458 ####[facility] [place],[address] [place], [place] [id number] Morphology Efra (Bld) [Interp] N/A Normal [facility] [place] Comment on above: Performed By: #### 2 10130 ####[facility] [place],[address] [place] [address] Neut # 6.45 x10EE3/UL Normal 1.50 - 7.10 [facility] [place] Comment on above: Performed By: #### 2 91806 ####[facility] [place],[address] [place] [address] Neutrophils/100 WBC (Bld) 63.8 % Normal 46.0 - 76.0 [facility] [place] Comment on above: Performed By: #### 2 28577 ####[facility] [place],[address] [place] [address] PLATELET 457 x10EE3/UL High 150 - 450 [facility] [place] Comment on above: Performed By: #### 2 96688 ####[facility] [place],[address] [place] [address] Platelet mean volume (Bld) [Entitic vol] 6.6 fL Normal 6.6 - 10.5 [facility] [place] Comment on above: Result Comment: AUTO MATED DIFFERENTIAL Performed By: #### 2 85962 ####[facility] [place],[address] [place] [address] RBC 4.15 x 10EE6/UL Normal 4.10 - 5.30 [facility] [place] Comment on above: Performed By: #### 2 38810 ####[facility] [place],[address] [place] [address] WBC 10.1 x 10EE3/UL Normal 4.5 - 10.8 [facility] [place] Comment on above: Performed By: #### 2 93951 ####[facility] [place],[address] [place] [address] CHEST 1 VIEWon 11-06-2024 CHEST 1 VIEW Normal [facility] [place] CMP with eGFRon 11-06-2024 AGE 33 years Normal [facility] [place] Comment on above: Performed By: #### 2 76400 ####[facility] [place],[address] [place] [address] Albumin [Mass/Vol] 3.9 g/dL Normal 3.4 - 5.0 [facility] [place] Comment on above: Performed By: #### 2 32280 ####[facility] [place],[address] [place] [address]85 Albumin/Globulin [Mass ratio] 1.1 {ratio} Normal 0.9 - 1.6 [facility] [place] Comment on above: Performed By: #### 2 68147 ####[facility] [place],[address] [place] [address] ALK PHOS 81 U/L Normal 46 - 116 [facility] [place] Comment on above: Performed By: #### 2 72036 ####[facility] [place],[address] [place] [address] 21469 ALT [Catalytic activity/Vol] 13 U/L Low 16 - 63 [facility] [place] Comment on above: Performed By: #### 2 54056 ####[facility] [place],[address] [place] [address] Anion gap [Moles/Vol] 15 mmol/L Normal 10 - 20 [facility] Comment on above: Performed By: #### 2 81385 ####[facility] [place],[address] [place] [address]09 AST [Catalytic activity/Vol] 12 U/L Low 13 - 39 [facility] [place] Comment on above: Performed By: #### 2 48024 ####[facility] [place],[address] [place] [address] B/C RATIO 6 ratio Normal 0 - 30 [facility] [place] Comment on above: Performed By: #### 2 85145 ####[facility] [place],[address] [place] [address] Bilirubin [Mass/Vol] 0.5 mg/dL Normal 0.2 - 1.0 [facility] [place] Comment on above: Performed By: #### 2 30278 ####[facility] [place],[address] [place] [address] Calcium [Mass/Vol] 9.1 mg/dL Normal 8.5 - 10.1 [facility] [place] Comment on above: Performed By: #### 2 56048 ####[facility] [place],[address] [place] [address] Chloride [Moles/Vol] 101 mmol/L Normal 98 - 107 [facility] [place] Comment on above: Performed By: #### 2 26909 ####[facility] [place],[address] [place] [address] CMP with eGFR Normal [facility] [place] Comment on above: Result Comment: COMP REHENSIVE METABOLIC PANEL Performed By: #### 2 98207 ####[facility] [place],[address] [place] [address]155 CO2 [Moles/Vol] 28.6 mmol/L Normal 21.0 - 32.0 [facility] [place] Comment on above: Performed By: #### 2 92773 ####[facility] [place],[address] [place] [address]25 Creatinine [Mass/Vol] 1.08 mg/dL High 0.55 - 1.02 [facility] Comment on above: Performed By: #### 2 84225 ####[facility] [place],[address] [place] [address] 34927 eGFR 58 ML/MINUTE Low 60 - 999 [facility] [place] Comment on above: Performed By: #### 2 79652 ####[facility] [place],[address] [place] [address] GFR/1.73 sq M.predicted among non-blacks MDRD (S/P/Bld) [Vol rate/Area] mL/min/{1.73_m2} Normal 60 - 999 [facility] [place] Comment on above: Result Comment: ACCO RDING TO THE NATIONAL KIDNEY DISEASE EDUCATION PROGRAM(NKDE), A NORMAL eGFRIS A VALUE GREATER THAN OR EQUAL TO 60 ML/MIN/1.73 SQ METERS.CHRONIC KIDNEY DISEASE: <60mL/MIN/1.73 SQ METERSKIDNEY FAILURE: <15mL/MIN/1.73 SQ METERSTHIS TEST SHOULD ONLY BE USED FOR PATIENTS 18 YEARS OF AGE AND OLDER. Performed By: #### 2 36918 ####[facility] [place],[address] [place] [address] Globulin (S) [Mass/Vol] 3.5 g/dL Normal 1.5 - 3.8 [facility] Comment on above: Performed By: #### 2 47330 ####[facility] [place],[address] [place] [address]268 Glucose [Mass/Vol] 79 mg/dL Normal 74 - 106 [facility] [place] Comment on above: Performed By: #### 2 81263 ####[facility] [place],[address] [place] [address]49 Potassium [Moles/Vol] 3.9 mmol/L Normal 3.5 - 5.1 [facility] Comment on above: Performed By: #### 2 63376 ####[facility] [place],[address] [place] [address]42 Protein [Mass/Vol] 7.4 g/dL Normal 6.4 - 8.2 [facility] [place] Comment on above: Performed By: #### 2 40647 ####[facility] [place],[address] [place] [address] 19169 Sodium [Moles/Vol] 141 mmol/L Normal 136 - 145 [facility] [place] Comment on above: Performed By: #### 2 59346 ####[facility] [place],[address] [place] [address]394 Urea nitrogen [Mass/Vol] 7 mg/dL Normal 7 - 18 [facility] [place] Comment on above: Performed By: #### 2 13042 ####[facility] [place],[address] [place] [address] ABDOMEN/PELVIS Won 2024 CT ABDOMEN/PELVIS W Normal [facility] [place] CULTURE BLOOD [VANESSA]on Microscopic examination of blood, culture CULTURE BLOOD [VANESSA] _BLOOD CULTURE_ GO TO [facility] REPORTS AND ATTACHMENTS FOR SCANNED REPORT 11/12/[id number] TE Normal [facility] [place] Comment on above: Performed By: #### 2 05463 ####[facility] [place],[address] [place] [address] Microscopic examination of blood, culture CULTURE BLOOD [VANESSA] _BLOOD CULTURE_ GO TO [facility] REPORTS AND ATTACHMENTS FOR SCANNED REPORT 11/12/[email or web address].COMPLE TE Normal [facility] [place] Comment on above: Performed By: #### 2 73582 ####[facility] [place],[address] [place] [address] ED MED ADMINISTRATION DETAIL on 11-06-2024 ED MED ADMINISTRATION DETAIL Normal [facility] [place] ED NURSES CLINICAL NOTEon ED NURSES CLINICAL NOTE Normal [facility] ED ORDER SHEET ([facility] ONLY)on 11-06-2024 ED ORDER SHEET ([facility] ONLY) Normal [facility] [place] ED PHYSICIAN CLINICAL REPORT on 11-06-2024 ED PHYSICIAN CLINICAL REPORT Normal [facility] [place] ED PHYSICIAN DISCHARGE REPOR Ton 11-06-2024 ED PHYSICIAN DISCHARGE REPORT Normal [facility] [place] ED SUPER BILLon 11-06-2024 ED SUPER BILL Normal [facility] [place] ED VISIT SUMMARYon ED VISIT SUMMARY Normal [facility] [place] ED VITALS FLOW SHEETon 11-06 ED VITALS FLOW SHEET Normal [facility] [place] LACTATEon 11-06-2024 Lactate [Moles/Vol] 1.1 mmol/L Normal 0.4 - 2.0 [facility] [place] Comment on above: Performed By: #### 2 91371 ####[facility] [place],[address] [place], [place] [id number] URINEon 11-06-2024 Beta HCG ( test) Ql (U) Negative Normal NEGATIVE [facility] [place] Comment on above: Performed By: #### 2 33520 ####[facility] [place],[address] [place] [address] EXTERNAL QC DONE? YES Normal [facility] [place] Comment on above: Performed By: #### 2 91632 ####[facility] [place],[address] [place], [place] [id number] INTERNAL QC PASS Normal [facility] [place] Comment on above: Performed By: #### 2 53673 ####[facility] [place],[address] [place] [address] TROPONINon 11-06-2024 HS TROPONIN <4.0 Normal 0.0 - 51.4 [facility] [place] Comment on above: Performed By: #### 2 20374 ####[facility] [place],[address] [place], [place] [id number] URINALYSISon 11-06-2024 Amorphous NONE Normal [facility] [place] Comment on above: Performed By: #### 2 52394 ####[facility] [place],[address] [place], [place] [id number] Bacteria TRACE Normal [facility] [place] Comment on above: Performed By: #### 2 33761 ####[facility] [place],[address] [place], [place] [id number] Bilirubin Ql (U) Negative Normal NORMAL: NEGATIVE [facility] [place] Comment on above: Performed By: #### 2 58194 ####[facility] [place],[address] [place], [place] [id number] Casts NONE Normal [facility] [place] Comment on above: Performed By: #### 2 11785 ####[facility] [place],[address] [place] [address]34 Clarity (U) SL. CLOUDY Abnormal NORMAL: CLEAR [facility] [place] Comment on above: Performed By: #### 2 14781 ####[facility] [place],[address] [place] [address]31 Color (U) yellow Normal NORMAL: YELLOW [facility] [place] Comment on above: Performed By: #### 2 81132 ####[facility] [place],[address] [place] [address] 58688 Crystals LM Nom (Urine sed) NONE Normal [facility] [place] Comment on above: Performed By: #### 2 64066 ####[facility] [place],[address] [place] [address] 56519 Epi Cells OCC Normal [facility] [place] Comment on above: Performed By: #### 2 77484 ####[facility] [place],[address] [place] [address]7036 Glucose Ql (U) NORM Normal NORMAL: NORMAL [facility] [place] Comment on above: Performed By: #### 2 21592 ####[facility] [place],[address] [place] [address] 77367 Hemoglobin Ql (U) 10 Abnormal NORMAL: NEGATIVE [facility] [place] Comment on above: Performed By: #### 2 75207 ####[facility] [place],[address] [place] [address] 64853 Ketone Negative Normal NORMAL: NEGATIVE [facility] [place] Comment on above: Performed By: #### 2 83317 ####[facility] [place],[address] [place] [address] 28712 Leukocytes Negative Normal NORMAL: NEGATIVE [facility] [place] Comment on above: Performed By: #### 2 27863 ####[facility] [place],[address] [place] [address] 91482 Mucous NONE Normal [facility] [place] Comment on above: Performed By: #### 2 18603 ####[facility] [place],[address] [place] [address] 06332 Nitrite Ql (U) Negative Normal NORMAL: NEGATIVE [facility] [place] Comment on above: Performed By: #### 2 58525 ####[facility] [place],[address] [place] [address] 38480 pH (U) 6 [pH] Normal NORMAL: 5.0-8.0 [facility] [place] Comment on above: Result Comment: UNAB LE TO PERFORM PROTEIN Performed By: #### 2 19509 ####[facility] [place],[address] [place] [address] Rbc 0-5 Normal 0-3/hpf [facility] [place] Comment on above: Performed By: #### 2 99986 ####[facility] [place],[address] [place], [place] [id number] Sp [place] 1.020 Normal NORMAL: 1.010-1.030 [facility] [place] Comment on above: Performed By: #### 2 40251 ####[facility] [place],[address] [place] [address] Specimen Type R Normal [facility] [place] Comment on above: Performed By: #### 2 79105 ####[facility] [place],[address] [place] [address] Urinalysis dipstick W Reflex Microscopic panel (U) SEE BELOW Normal [facility] [place] Comment on above: Result Comment: MICR OSCOPIC Performed By: #### 2 52494 ####[facility] [place],[address] [place] [address] Urobilinog NORM Normal NORMAL: NORMAL [facility] [place] Comment on above: Performed By: #### 2 37071 ####[facility] [place],[address] [place] [address] Wbc NONE Normal 0-5/hpf [facility] [place] Comment on above: Performed By: #### 2 54425 ####[facility] [place],[address] [place] [address] Yeast NONE Normal [facility] [place] Comment on above: Performed By: #### 2 65682 ####[facility] [place],[address] [place] [address] Amorphous NONE Normal [facility] [place] Comment on above: Performed By: #### 2 54721 ####[facility] [place],[address] [place] [address] Bacteria 4+ Normal [facility] [place] Comment on above: Performed By: #### 2 08170 ####[facility] [place],[address] [place] [address]136 Bilirubin Ql (U) Negative Normal NORMAL: NEGATIVE [facility] [place] Comment on above: Performed By: #### 2 64212 ####[facility] [place],[address] [place], [place] [id number] Casts NONE Normal [facility] [place] Comment on above: Performed By: #### 2 96320 ####[facility] [place],[address] [place], [place] [id number] Clarity (U) CLOUDY Abnormal NORMAL: CLEAR [facility] [place] Comment on above: Performed By: #### 2 56534 ####[facility] [place],[address] [place] [address] Color (U) orange Normal NORMAL: YELLOW [facility] [place] Comment on above: Performed By: #### 2 47733 ####[facility] [place],[address] [place] [address] Crystals LM Nom (Urine sed) NONE Normal [facility] [place] Comment on above: Performed By: #### 2 30692 ####[facility] [place],[address] [place] [address] Epi Cells NONE Normal [facility] [place] Comment on above: Performed By: #### 2 46010 ####[facility] [place],[address] [place] [address] Glucose Ql (U) NORM Normal NORMAL: NORMAL [facility] [place] Comment on above: Performed By: #### 2 96419 ####[facility] [place],[address] [place] [address]5685 Hemoglobin Ql (U) 250 Abnormal NORMAL: NEGATIVE [facility] [place] Comment on above: Performed By: #### 2 11605 ####[facility] [place],[address] [place] [address]289 Ketone Negative Normal NORMAL: NEGATIVE [facility] [place] Comment on above: Performed By: #### 2 35234 ####[facility] [place],[address] [place] [address] Leukocytes 500 Abnormal NORMAL: NEGATIVE [facility] [place] Comment on above: Performed By: #### 2 83365 ####[facility] [place],[address] [place] [address] Mucous NONE Normal [facility] [place] Comment on above: Performed By: #### 2 91819 ####[facility] [place],[address] [place] [address] Nitrite Ql (U) Positive Normal NORMAL: NEGATIVE [facility] [place] Comment on above: Performed By: #### 2 04638 ####[facility] [place],[address] [place] [address] pH (U) 7 [pH] Normal NORMAL: 5.0-8.0 [facility] [place] Comment on above: Result Comment: UNAB LE TO PERFORM PROTEIN Performed By: #### 2 97816 ####[facility] [place],[address] [place] [address] Rbc TNTC Normal 0-3/hpf [facility] [place] Comment on above: Performed By: #### 2 87588 ####[facility] [place],[address] [place] [address] Sp [place] 1.010 Normal NORMAL: 1.010-1.030 [facility] [place] Comment on above: Performed By: #### 2 82956 ####[facility] [place],[address] [place] [address] Specimen Type R Normal [facility] [place] Comment on above: Performed By: #### 2 07417 ####[facility] [place],[address] [place] [address] Urinalysis dipstick W Reflex Microscopic panel (U) SEE BELOW Normal [facility] [place] Comment on above: Result Comment: MICR OSCOPIC Performed By: #### 2 89145 ####[facility] [place],[address] [place] [address] Urobilinog NORM Normal NORMAL: NORMAL [facility] [place] Comment on above: Performed By: #### 2 47333 ####[facility] [place],[address] [place], [place] [id number] WBC (U) [#/Vol] /uL Normal 0-5/hpf [facility] [place] Comment on above: Performed By: #### 2 29792 ####[facility] [place],[address] [place], [place] [id number] Yeast NONE Normal [facility] [place] Comment on above: Performed By: #### 2 49085 ####[facility] [place],[address] [place] [address] IR NEPHROSTOMY EXCHANGEon IR NEPHROSTOMY EXCHANGE Normal [facility] ED MED ADMINISTRATION DETAIL on 09-04-2024 ED MED ADMINISTRATION DETAIL Normal [facility] [place] ED NURSES CLINICAL NOTEon ED NURSES CLINICAL NOTE Normal [facility] ED ORDER SHEET (CPOE ONLY)on 09-04-2024 ED ORDER SHEET (CPOE ONLY) Normal [facility] [place] ED PHYSICIAN CLINICAL REPORT on 09-04-2024 ED PHYSICIAN CLINICAL REPORT Normal [facility] [place] ED PHYSICIAN DISCHARGE REPOR Ton 09-04-2024 ED PHYSICIAN DISCHARGE REPORT Normal [facility] [place] ED SUPER BILLon 09-04-2024 ED SUPER BILL Normal [facility] [place] ED VISIT SUMMARYon ED VISIT SUMMARY Normal [facility] [place] ED VITALS FLOW SHEETon 09-04 ED VITALS FLOW SHEET Normal [facility] [place] BMP with eGFRon 08-31-2024 AGE 33 years Normal [facility] [place] Comment on above: Performed By: #### 2 12119 ####[facility] [place],[address] [place], [place] [id number] Anion gap [Moles/Vol] 17 mmol/L Normal - [facility] Comment on above: Performed By: #### 2 09499 ####[facility] [place],[address] [place], [place] [id number] BMP with eGFR Normal [facility] [place] Comment on above: Result Comment: BASI C METABOLIC PANEL Performed By: #### 2 48468 ####[facility] [place],[address] [place] [address] Calcium [Mass/Vol] 8.3 mg/dL Low 8.5 - 10.1 [facility] [place] Comment on above: Performed By: #### 2 12968 ####[facility] [place],[address] [place] [address]440 Chloride [Moles/Vol] 109 mmol/L High 98 - 107 [facility] [place] Comment on above: Performed By: #### 2 11058 ####[facility] [place],[address] [place] [address] 27804 CO2 [Moles/Vol] 20.7 mmol/L Low 21.0 - 32.0 [facility] [place] Comment on above: Performed By: #### 2 42201 ####[facility] [place],[address] [place], [place] [id number] Creatinine [Mass/Vol] 0.96 mg/dL Normal 0.55 - 1.02 [facility] Comment on above: Performed By: #### 2 38434 ####[facility] [place],[address] [place] [address] GFR/1.73 sq M.predicted among non-blacks MDRD (S/P/Bld) [Vol rate/Area] mL/min/{1.73_m2} Normal 60 - 999 [facility] [place] Comment on above: Performed By: #### 2 93650 ####[facility] [place],[address] [place], [place] [id number] Result Comment: ACCO RDING TO THE NATIONAL KIDNEY DISEASE EDUCATION PROGRAM(NKDE), A NORMAL eGFRIS A VALUE GREATER THAN OR EQUAL TO 60 ML/MIN/1.73 SQ METERS.CHRONIC KIDNEY DISEASE: <60mL/MIN/1.73 SQ METERSKIDNEY FAILURE: <15mL/MIN/1.73 SQ METERSTHIS TEST SHOULD ONLY BE USED FOR PATIENTS 18 YEARS OF AGE AND OLDER. Glucose [Mass/Vol] 124 mg/dL High 74 - 106 [facility] [place] Comment on above: Performed By: #### 2 92090 ####[facility] [place],[address] [place] [address]23 Potassium [Moles/Vol] 3.5 mmol/L Normal 3.5 - 5.1 [facility] Comment on above: Performed By: #### 2 31479 ####[facility] [place],[address] [place] [address]64 Sodium [Moles/Vol] 143 mmol/L Normal 136 - 145 [facility] [place] Comment on above: Performed By: #### 2 96353 ####[facility] [place],[address] [place] [address]30 Urea nitrogen [Mass/Vol] 8 mg/dL Normal 7 - 18 [facility] [place] Comment on above: Performed By: #### 2 47789 ####[facility] [place],[address] [place] [address] AGE 33 years Normal [facility] [place] Comment on above: Performed By: #### 2 04785 ####[facility] [place],[address] [place] [address] 10221 Anion gap [Moles/Vol] 18 mmol/L Normal 10 - 20 [facility] Comment on above: Performed By: #### 2 43881 ####[facility] [place],[address] [place] [address] 89139 BMP with eGFR Normal [facility] [place] Comment on above: Result Comment: BASI C METABOLIC PANEL Performed By: #### 2 69982 ####[facility] [place],[address] [place] [address] 02974 Calcium [Mass/Vol] 9.4 mg/dL Normal 8.5 - 10.1 [facility] [place] Comment on above: Performed By: #### 2 84634 ####[facility] [place],[address] [place] [address]132 Chloride [Moles/Vol] 104 mmol/L Normal 98 - 107 [facility] [place] Comment on above: Performed By: #### 2 19602 ####[facility] [place],[address] [place] [address]22 CO2 [Moles/Vol] 24.0 mmol/L Normal 21.0 - 32.0 [facility] [place] Comment on above: Performed By: #### 2 54808 ####[facility] [place],[address] [place] [address] 07850 Creatinine [Mass/Vol] 1.11 mg/dL High 0.55 - 1.02 [facility] Comment on above: Performed By: #### 2 54053 ####[facility] [place],[address] [place] [address] 53989 eGFR 56 ML/MINUTE Low 60 - 999 [facility] [place] Comment on above: Performed By: #### 2 69112 ####[facility] [place],[address] [place] [address] 94025 GFR/1.73 sq M.predicted among non-blacks MDRD (S/P/Bld) [Vol rate/Area] mL/min/{1.73_m2} Normal 60 - 999 [facility] [place] Comment on above: Result Comment: ACCO RDING TO THE NATIONAL KIDNEY DISEASE EDUCATION PROGRAM(NKDE), A NORMAL eGFRIS A VALUE GREATER THAN OR EQUAL TO 60 ML/MIN/1.73 SQ METERS.CHRONIC KIDNEY DISEASE: <60mL/MIN/1.73 SQ METERSKIDNEY FAILURE: <15mL/MIN/1.73 SQ METERSTHIS TEST SHOULD ONLY BE USED FOR PATIENTS 18 YEARS OF AGE AND OLDER. Performed By: #### 2 14592 ####[facility] [place],[address] [place] [address]80 Glucose [Mass/Vol] 146 mg/dL High 74 - 106 [facility] [place] Comment on above: Performed By: #### 2 75769 ####[facility] [place],[address] [place] [address] 91867 Potassium [Moles/Vol] 2.9 mmol/L Critically low 3.5 - 5.1 [facility] [place] Comment on above: Result Comment: { CA LLED TO ED AT 0650{ READ BACK BY TADEO TO BENOITB Performed By: #### 2 79129 ####[facility] [place],[address] [place] [address] 56193 Sodium [Moles/Vol] 143 mmol/L Normal 136 - 145 [facility] [place] Comment on above: Performed By: #### 2 03711 ####[facility] [place],[address] [place] [address] Urea nitrogen [Mass/Vol] 9 mg/dL Normal 7 - 18 [facility] [place] Comment on above: Performed By: #### 2 91505 ####[facility] [place],[address] [place] [address] CBC + DIFFon 08-31-2024 Baso # 0.06 x10EE3/UL Normal 0.00 - 0.10 [facility] [place] Comment on above: Performed By: #### 2 72813 ####[facility] [place],[address] [place] [address] 71896 Basophils/100 WBC (Bld) 0.3 % Normal 0.0 - 2.0 [facility] Comment on above: Performed By: #### 2 28487 ####[facility] [place],[address] [place] [address] 92279 CBC + DIFF Normal [facility] [place] Comment on above: Result Comment: CBC- COMPLETE BLOOD COUNT Performed By: #### 2 74512 ####[facility] [place],[address] [place] [address] 80613 EO # 0.19 x10EE3/UL Normal 0.00 - 0.50 [facility] [place] Comment on above: Performed By: #### 2 80673 ####[facility] [place],[address] [place] [address]24 Eosinophils/100 WBC (Bld) 1.1 % Normal 0.0 - 7.0 [facility] [place] Comment on above: Performed By: #### 2 56597 ####[facility] [place],[address] [place] [address] Erythrocyte distribution width (RBC) [Ratio] 14.0 % Normal 12.0 - 15.6 [facility] [place] Comment on above: Performed By: #### 2 59897 ####[facility] [place],[address] [place], [place] [id number] Hematocrit (Bld) [Volume fraction] 47.1 % High 34.0 - 46.0 [facility] [place] Comment on above: Performed By: #### 2 70180 ####[facility] [place],[address] [place] [address] Hemoglobin (Bld) [Mass/Vol] 15.6 g/dL Normal 12.0 - 16.0 [facility] [place] Comment on above: Performed By: #### 2 68574 ####[facility] [place],[address] [place] [address] Lymph # 3.41 x10EE3/UL High 0.80 - 2.80 [facility] [place] Comment on above: Performed By: #### 2 78121 ####[facility] [place],[address] [place], [place] [phone] Lymphocytes/100 WBC (Bld) 20.7 % Normal 20.0 - 45.0 [facility] [place] Comment on above: Performed By: #### 2 18521 ####[facility] [place],[address] [place], [place] [phone] MANUAL DIFF N/A Normal [facility] [place] Comment on above: Performed By: #### 2 87244 ####[facility] [place],[address] [place], [place] [id number] MCH (RBC) [Entitic mass] 32 pg Normal 27 - 33 [facility] [place] Comment on above: Performed By: #### 2 28726 ####[facility] [place],[address] [place] [address]26 MCHC 33 X10 3 Normal 32 - 36 [facility] [place] Comment on above: Performed By: #### 2 33533 ####[facility] [place],[address] [place] [address] 35939 MCV (RBC) [Entitic vol] 97 fL Normal 80 - 99 [facility] Comment on above: Performed By: #### 2 01464 ####[facility] [place],[address] [place] [address]22 Moca # 1.00 x10EE3/UL Normal 0.20 - 1.00 [facility] [place] Comment on above: Performed By: #### 2 52548 ####[facility] [place],[address] [place] [address] 68147 MONOS % 6.1 % Normal 0.0 - 10.0 [facility] [place] Comment on above: Performed By: #### 2 73501 ####[facility] [place],[address] [place] [address]259 Morphology Efra (Bld) [Interp] N/A Normal [facility] [place] Comment on above: Performed By: #### 2 19001 ####[facility] [place],[address] [place] [address] Neut # 11.82 x10EE3/UL High 1.50 - 7.10 [facility] [place] Comment on above: Performed By: #### 2 17532 ####[facility] [place],[address] [place] [address] 59806 Neutrophils/100 WBC (Bld) 71.8 % Normal 46.0 - 76.0 [facility] [place] Comment on above: Performed By: #### 2 17327 ####[facility] [place],[address] [place] [address] 61282 PLATELET 387 x10EE3/UL Normal 150 - 450 [facility] [place] Comment on above: Performed By: #### 2 96787 ####[facility] [place],[address] [place] [address] 92253 Platelet mean volume (Bld) [Entitic vol] 7.1 fL Normal 6.6 - 10.5 [facility] [place] Comment on above: Result Comment: AUTO MATED DIFFERENTIAL Performed By: #### 2 33943 ####[facility] [place],[address] [place], [place] [id number] RBC 4.88 x 10EE6/UL Normal 4.10 - 5.30 [facility] [place] Comment on above: Performed By: #### 2 67523 ####[facility] [place],[address] [place], [place] [id number] WBC 16.5 x 10EE3/UL High 4.5 - 10.8 [facility] [place] Comment on above: Performed By: #### 2 81133 ####[facility] [place],[address] [place] [address] CT ABDOMEN/PELVIS WOon 08-31 CT ABDOMEN/PELVIS WO Normal [facility] [place] SERUM QUALon 08-31 EXTERNAL QC DONE? YES Normal [facility] [place] Comment on above: Performed By: #### 2 92792 ####[facility] [place],[address] [place] [address] INTERNAL QC PASS Normal [facility] [place] Comment on above: Performed By: #### 2 08241 ####[facility] [place],[address] [place], [place] [id number] SER Positive Normal NEGATIVE [facility] [place] Comment on above: Performed By: #### 2 79155 ####[facility] [place],[address] [place], [place] [id number] EMERGENCY REPORTon EMERGENCY REPORT Normal [facility] [place] IR NEPHROSTOMY EXCHANGEon IR NEPHROSTOMY EXCHANGE Normal [facility] LABORATORYOrdered By: Courtney Freed on 08-11-2024 Beta HCG ( test) Ql (U) Negative (08/11/24 8:31 AM) [facility] Work Phone: .Auto Diffon 08-06-2024 Basophil, Absolute 0.1 10 3/mcL Normal 0.0-0.3 [facility] Comment on above: Performed By: #### B MP, ANEU, GFR, ADIFF, CBC ####[address] [address] Basophils/100 WBC (Bld) 1.2 % Normal 0.0-2.5 [facility] Comment on above: Performed By: #### B MP, ANEU, GFR, ADIFF, CBC ####[address] [address] Eosinophil, Absolute 0.4 10 3/mcL Normal 0.0-0.7 [facility] Comment on above: Performed By: #### B MP, ANEU, GFR, ADIFF, CBC ####[address] [address] Eosinophils/100 WBC (Bld) 4.3 % Normal 0.0-6.0 [facility] Comment on above: Performed By: #### B MP, ANEU, GFR, ADIFF, CBC ####[address] [address] Lymphocyte, Absolute 1.8 10 3/mcL Normal 0.9-4.3 [facility] Comment on above: Performed By: #### B MP, ANEU, GFR, ADIFF, CBC ####[address] [address] Lymphocytes/100 WBC (Bld) 20.0 % Normal 20.0-40.0 [facility] Comment on above: Performed By: #### B MP, ANEU, GFR, ADIFF, CBC ####[address] [address] Monocyte, Absolute 0.5 10 3/mcL Normal 0.1-1.4 [facility] Comment on above: Performed By: #### B MP, ANEU, GFR, ADIFF, CBC ####[address] [address] Monocytes/100 WBC (Bld) 6.1 % Normal 2.0-13.0 [facility] Comment on above: Performed By: #### B MP, ANEU, GFR, ADIFF, CBC ####[address] [address] Neutrophils/100 WBC (Bld) 68.4 % Normal 50.0-75.0 [facility] Comment on above: Performed By: #### B MP, ANEU, GFR, ADIFF, CBC ####[address] [address] .GFRon 08-06-2024 GFR >60 Normal [facility] Comment on above: Result Comment: GFR Population mean for , Non- Americans Ages 20-29 = 116 mL/min/1.73 sq.m. Ages 30-39 = 107 mL/min/1.73 sq.m. Ages 40-49 = 99 mL/min/1.73 sq.m. Ages 50-59 = 93 mL/min/1.73 sq.m. Ages 60-69 = 85 mL/min/1.73 sq.m. Ages 70+ = 75 mL/min/1.73 sq.m.Chronic Kidney Disease: Less than 60 mL/min/1.73 square metersEnd Stage Renal Disease: Less than 15 mL/min/1.73 square meters Performed By: #### B MP, ANEU, GFR, ADIFF, CBC ####[place] [address] GFR Non- >60 Normal [facility] Comment on above: Result Comment: GFR Population mean for , Non- Americans Ages 20-29 = 116 mL/min/1.73 sq.m. Ages 30-39 = 107 mL/min/1.73 sq.m. Ages 40-49 = 99 mL/min/1.73 sq.m. Ages 50-59 = 93 mL/min/1.73 sq.m. Ages 60-69 = 85 mL/min/1.73 sq.m. Ages 70+ = 75 mL/min/1.73 sq.m.Chronic Kidney Disease: Less than 60 mL/min/1.73 square metersEnd Stage Renal Disease: Less than 15 mL/min/1.73 square meters Performed By: #### B MP, ANEU, GFR, ADIFF, CBC ####[place] [address] .NEUABSon 08-06-2024 Neutrophil, Absolute 6.1 10 3/mcL Normal 2.3-8.1 [facility] Comment on above: Performed By: #### B MP, ANEU, GFR, ADIFF, CBC ####[address] [address] BMPon 08-06-2024 BUN/Creatinine Ratio 13.3 ratio Normal 10.0-22.0 [facility] Comment on above: Performed By: #### B MP, ANEU, GFR, ADIFF, CBC ####[place] [address] Calcium [Mass/Vol] 10.7 mg/dL High 8.7-10.4 [facility] Comment on above: Performed By: #### B MP, ANEU, GFR, ADIFF, CBC ####[place] [address] Chloride [Moles/Vol] 110 mmol/L Normal 98-110 [facility] Comment on above: Performed By: #### B MP, ANEU, GFR, ADIFF, CBC ####[place] [id number] CO2 [Moles/Vol] 27 mmol/L Normal 22-32 [facility] Comment on above: Performed By: #### B MP, ANEU, GFR, ADIFF, CBC ####[place] [address] Creatinine [Mass/Vol] 0.90 mg/dL Normal 0.50-1.20 [facility] Comment on above: Result Comment: Test ing performed on Algisys analyzer using enzymatic creatinine methodology. Performed By: #### B MP, ANEU, GFR, ADIFF, CBC ####[place] [address] Electrolyte Balance 6.0 mEq/L Normal 4.0-15.0 [facility]IN Comment on above: Performed By: #### B MP, ANEU, GFR, ADIFF, CBC ####[place] [address] Glucose [Mass/Vol] 85 mg/dL Normal 70-110 [facility] Comment on above: Performed By: #### B MP, ANEU, GFR, ADIFF, CBC ####[place] [address] Potassium [Moles/Vol] 4.4 mmol/L Normal 3.5-5.0 [facility] Comment on above: Performed By: #### B MP, ANEU, GFR, ADIFF, CBC ####[place] [address] Sodium [Moles/Vol] 143 mmol/L Normal 136-145 [facility] Comment on above: Performed By: #### B MP, ANEU, GFR, ADIFF, CBC ####[place] [address] Urea nitrogen [Mass/Vol] 12.0 mg/dL Normal 8.0-22.0 [facility] Comment on above: Performed By: #### B MP, ANEU, GFR, ADIFF, CBC ####[place] [address] CBCon 08-06-2024 Erythrocyte distribution width (RBC) [Ratio] 16.0 % High 11.5-15.5 [facility] Comment on above: Performed By: #### B MP, ANEU, GFR, ADIFF, CBC ####[place] [address] Hematocrit (Bld) [Volume fraction] 40.0 % Normal 34.0-46.0 [facility] Comment on above: Performed By: #### B MP, ANEU, GFR, ADIFF, CBC ####[place] [address] Hgb 13.5 G/dL Normal 12.0-16.0 [facility] Comment on above: Performed By: #### B MP, ANEU, GFR, ADIFF, CBC ####[place] [address] MCH (RBC) [Entitic mass] 32.6 pg Normal 27.0-33.0 [facility] Comment on above: Performed By: #### B MP, ANEU, GFR, ADIFF, CBC ####[place] [address] MCHC 33.8 G/dL Normal 32.0-36.0 [facility] Comment on above: Performed By: #### B MP, ANEU, GFR, ADIFF, CBC ####[address] [address] MCV (RBC) [Entitic vol] 96.4 fL Normal 80.0-99.0 [facility] Comment on above: Performed By: #### B MP, ANEU, GFR, ADIFF, CBC ####[place] [address] Platelet 429 10 3/mcL Normal 150-450 [facility] Comment on above: Performed By: #### B MP, ANEU, GFR, ADIFF, CBC ####[place] [address] Platelet mean volume (Bld) [Entitic vol] 7.4 fL Normal 6.6-10.5 [facility] Comment on above: Performed By: #### B MP, ANEU, GFR, ADIFF, CBC ####[place] [address] RBC 4.15 10 6/mcL Normal 4.10-5.30 [facility] Comment on above: Performed By: #### B MP, ANEU, GFR, ADIFF, CBC ####[place] [address] WBC 8.9 10 3/mcL Normal 4.5-10.8 [facility] Comment on above: Performed By: #### B MP, ANEU, GFR, ADIFF, CBC ####[place] [address] LABORATORYOrdered By: SYSTEM SYSTEM on 08-06-2024 Basophils (Bld) [#/Vol] 0.1 103/mcL Normal 0.0 - 0.3 10^3/mcL AH Workflow SS Basophils/100 WBC (Bld) 1.2 % Normal 0.0 - 2.5 % AH Workflow SS Calcium [Mass/Vol] 10.7 mg/dL High 8.7 - 10. 4 mg/dL AH ADM SS Chloride [Moles/Vol] 110 mmol/L Normal 98 - 11 0 mEq/L AH ADM SS CO2 [Moles/Vol] 27 mmol/L Normal 22 - 32 mEq/L AH ADM SS Creatinine [Mass/Vol] 0.90 mg/dL Normal 0.50 - 1.20 mg/dL ADM SS Comment on above: Interpretive Data: T esting performed on Algisys analyzer using enzymatic creatinine methodology. Electrolyte Balance [...] (S/P/Bld) [Vol rate/Area] ml/min/1.73sqm Invalid Interpretation Code [facility] S Comment on above: Interpretive Data: [...] (S/P/Bld) [Vol rate/Area] ml/min/1.73sqm Invalid Interpretation Code [facility] Comment on above: Interpretive Data: [...] mg/dL ADM SS Hematocrit (Bld) [Volume fraction] 40.0 [...] 143 mmol/L Normal 136 - 145 mEq/L ADM SS Urea nitrogen [Mass/Vol] 12.0 mg/dL Normal 8.0 - 22.0 mg/dL AH ADM SS Urea nitrogen/Creatinine [Mass ratio] 13.3 ratio Normal 10.0 - 22.0 ratio AH ADM SS WBC (Bld) [#/Vol] 8.9 103/mcL Normal 4.5 - 10.8 10^3/mcL AH Workflow SS CBC + DIFFon 07-10-2024 Baso # 0.04 x10EE3/UL Normal 0.00 - 0.10 [facility] [place] Comment on above: Performed By: #### 2 [id number] ####[facility] [place],[address] [place] [address] Basophils/100 WBC (Bld) 0.3 % Normal 0.0 - 2.0 [facility] Comment on above: Performed By: #### 2 02627 ####[facility] [place],[address] [place] [address] CBC + DIFF Normal [facility] [place] Comment on above: Result Comment: CBC- COMPLETE BLOOD COUNT Performed By: #### 2 07335 ####[facility] [place],[address] [place] [address] EO # 0.37 x10EE3/UL Normal 0.00 - 0.50 [facility] [place] Comment on above: Performed By: #### 2 59321 ####[facility] [place],[address] [place], [place] [id number] Eosinophils/100 WBC (Bld) 3.1 % Normal 0.0 - 7.0 [facility] Comment on above: Performed By: #### 2 55902 ####[facility] [place],[address] [place], [place] [id number] Erythrocyte distribution width (RBC) [Ratio] 14.5 % Normal 12.0 - 15.6 [facility] [place] Comment on above: Performed By: #### 2 40066 ####[facility] [place],[address] [place] [address] Hematocrit (Bld) [Volume fraction] 43.4 % Normal 34.0 - 46.0 [facility] [place] Comment on above: Performed By: #### 2 49294 ####[facility] [place],[address] [place] [address] Hemoglobin (Bld) [Mass/Vol] 15.0 g/dL Normal 12.0 - 16.0 [facility] [place] Comment on above: Performed By: #### 2 21666 ####[facility] [place],[address] [place] [address] Lymph # 2.32 x10EE3/UL Normal 0.80 - 2.80 [facility] [place] Comment on above: Performed By: #### 2 31702 ####[facility] [place],[address] [place] [address] Lymphocytes/100 WBC (Bld) 19.9 % Low 20.0 - 45.0 [facility] [place] Comment on above: Performed By: #### 2 94220 ####[facility] [place],[address] [place] [address] MANUAL DIFF N/A Normal [facility] [place] Comment on above: Performed By: #### 2 20216 ####[facility] [place],[address] [place] [address] MCH (RBC) [Entitic mass] 32 pg Normal 27 - 33 [facility] [place] Comment on above: Performed By: #### 2 35459 ####[facility] [place],[address] [place] [address] MCHC 35 X10 3 Normal 32 - 36 [facility] [place] Comment on above: Performed By: #### 2 08173 ####[facility] [place],[address] [place] [address] MCV (RBC) [Entitic vol] 94 fL Normal 80 - 99 [facility] Comment on above: Performed By: #### 2 28719 ####[facility] [place],[address] [place] [address] Moca # 0.68 x10EE3/UL Normal 0.20 - 1.00 [facility] [place] Comment on above: Performed By: #### 2 35538 ####[facility] [place],[address] [place] [address] MONOS % 5.8 % Normal 0.0 - 10.0 [facility] [place] Comment on above: Performed By: #### 2 40315 ####[facility] [place],[address] [place] [address] Morphology Efra (Bld) [Interp] N/A Normal [facility] [place] Comment on above: Performed By: #### 2 19330 ####[facility] [place],[address] [place] [address] Neut # 8.28 x10EE3/UL High 1.50 - 7.10 [facility] [place] Comment on above: Performed By: #### 2 62945 ####[facility] [place],[address] [place] [address] Neutrophils/100 WBC (Bld) 70.9 % Normal 46.0 - 76.0 [facility] [place] Comment on above: Performed By: #### 2 45758 ####[facility] [place],[address] [place] [address] PLATELET 398 x10EE3/UL Normal 150 - 450 [facility] [place] Comment on above: Performed By: #### 2 18625 ####[facility] [place],[address] [place] [address] Platelet mean volume (Bld) [Entitic vol] 6.5 fL Low 6.6 - 10.5 [facility] [place] Comment on above: Result Comment: AUTO MATED DIFFERENTIAL Performed By: #### 2 09801 ####[facility] [place],[address] [place] [address] RBC 4.62 x 10EE6/UL Normal 4.10 - 5.30 [facility] [place] Comment on above: Performed By: #### 2 08734 ####[facility] [place],[address] [place] [address] WBC 11.7 x 10EE3/UL High 4.5 - 10.8 [facility] [place] Comment on above: Performed By: #### 2 23150 ####[facility] [place],[address] [place] [address] CMP with eGFRon 07-10-2024 AGE 33 years Normal [facility] [place] Comment on above: Performed By: #### 2 54230 ####[facility] [place],[address] [place] [address] Albumin [Mass/Vol] 3.8 g/dL Normal 3.4 - 5.0 [facility] [place] Comment on above: Performed By: #### 2 97428 ####[facility] [place],[address] [place] [address] Albumin/Globulin [Mass ratio] 1.2 {ratio} Normal 0.9 - 1.6 [facility] [place] Comment on above: Performed By: #### 2 39581 ####[facility] [place],[address] [place] [address] ALK PHOS 99 U/L Normal 46 - 116 [facility] [place] Comment on above: Performed By: #### 2 50525 ####[facility] [place],[address] [place] [address] ALT [Catalytic activity/Vol] 13 U/L Low 16 - 63 [facility] [place] Comment on above: Performed By: #### 2 45420 ####[facility] [place],[address] [place] [address] Anion gap [Moles/Vol] 17 mmol/L Normal 10 - 20 [facility] Comment on above: Performed By: #### 2 32789 ####[facility] [place],[address] [place] [address] AST [Catalytic activity/Vol] 19 U/L Normal 13 - 39 [facility] [place] Comment on above: Performed By: #### 2 89640 ####[facility] [place],[address] [place] [address] B/C RATIO 6 ratio Normal 0 - 30 [facility] [place] Comment on above: Performed By: #### 2 69314 ####[facility] [place],[address] [place] [address] Bilirubin [Mass/Vol] 0.3 mg/dL Normal 0.2 - 1.0 [facility] [place] Comment on above: Performed By: #### 2 18320 ####[facility] [place],[address] [place] [address] Calcium [Mass/Vol] 9.3 mg/dL Normal 8.5 - 10.1 [facility] Comment on above: Performed By: #### 2 15458 ####[facility] [place],[address] [place] [address] Chloride [Moles/Vol] 102 mmol/L Normal 98 - 107 [facility] [place] Comment on above: Performed By: #### 2 10577 ####[facility] [place],[address] [place] [address] CMP with eGFR Normal [facility] Comment on above: Result Comment: COMP REHENSIVE METABOLIC PANEL Performed By: #### 2 72193 ####[facility] [place],[address] [place] [address] CO2 [Moles/Vol] 26.3 mmol/L Normal 21.0 - 32.0 [facility] [place] Comment on above: Performed By: #### 2 44356 ####[facility] [place],[address] [place] [address] Creatinine [Mass/Vol] 1.00 mg/dL Normal 0.55 - 1.02 [facility] Comment on above: Performed By: #### 2 41593 ####[facility] [place],[address] [place] [address] GFR/1.73 sq M.predicted among non-blacks MDRD (S/P/Bld) [Vol rate/Area] mL/min/{1.73_m2} Normal 60 - 999 [facility] [place] Comment on above: Performed By: #### 2 11393 ####[facility] [address] [address] Result Comment: ACCO RDING TO THE NATIONAL KIDNEY DISEASE EDUCATION PROGRAM(NKDE), A NORMAL eGFRIS A VALUE GREATER THAN OR EQUAL TO 60 ML/MIN/1.73 SQ METERS.CHRONIC KIDNEY DISEASE: <60mL/MIN/1.73 SQ METERSKIDNEY FAILURE: <15mL/MIN/1.73 SQ METERSTHIS TEST SHOULD ONLY BE USED FOR PATIENTS 18 YEARS OF AGE AND OLDER. Globulin (S) [Mass/Vol] 3.2 g/dL Normal 1.5 - 3.8 [facility] Comment on above: Performed By: #### 2 09000 ####[address] [address] Glucose [Mass/Vol] 99 mg/dL Normal 74 - 106 [facility] [place] Comment on above: Performed By: #### 2 33375 ####[address] [address] Potassium [Moles/Vol] 4.0 mmol/L Normal 3.5 - 5.1 [facility] Comment on above: Performed By: #### 2 67213 ####[address] [address] Protein [Mass/Vol] 7.0 g/dL Normal 6.4 - 8.2 [facility] [place] Comment on above: Performed By: #### 2 01643 ####[address] [address] Sodium [Moles/Vol] 141 mmol/L Normal 136 - 145 [facility] [place] Comment on above: Performed By: #### 2 22868 ####[address] [address] Urea nitrogen [Mass/Vol] 6 mg/dL Low 7 - 18 [facility] [place] Comment on above: Performed By: #### 2 14464 ####[address] [address] URINALYSISon 07-10-2024 Amorphous NONE Normal [facility] [place] Comment on above: Performed By: #### 2 69185 ####[facility] [place],[address] [place] [address] Bacteria NONE Normal [facility] Comment on above: Performed By: #### 2 09533 ####[facility] [place],[address] [place] [address] Bilirubin Ql (U) Negative Normal NORMAL: NEGATIVE [facility] [place] Comment on above: Performed By: #### 2 45400 ####[facility] [place],[address] [place] [address] Casts NONE Normal [facility] Comment on above: Performed By: #### 2 72370 ####[facility] [place],[address] [place] [address] Clarity (U) clear Normal NORMAL: CLEAR [facility] [place] Comment on above: Performed By: #### 2 86681 ####[facility] [place],[address] [place] [address] Color (U) yellow Normal NORMAL: YELLOW [facility] [place] Comment on above: Performed By: #### 2 36902 ####[facility] [place],[address] [place] [address]261 Crystals LM Nom (Urine sed) NONE Normal [facility] Comment on above: Performed By: #### 2 11784 ####[facility] [place],[address] [place] [address] Epi Cells NONE Normal [facility] Comment on above: Performed By: #### 2 62238 ####[facility] [place],[address] [place] [address] Glucose Ql (U) NORM Normal NORMAL: NORMAL [facility] [place] Comment on above: Performed By: #### 2 53323 ####[facility] [place],[address] [place] [address] Hemoglobin Ql (U) 10 Abnormal NORMAL: NEGATIVE [facility] [place] Comment on above: Performed By: #### 2 09985 ####[facility] [place],[address] [place] [address] Ketone Negative Normal NORMAL: NEGATIVE [facility] [place] Comment on above: Performed By: #### 2 46529 ####[facility] [place],[address] [place] [address] Leukocytes 25 Abnormal NORMAL: NEGATIVE [facility] [place] Comment on above: Performed By: #### 2 07187 ####[facility] [place],[address] [place] [address] Mucous NONE Normal [facility] Comment on above: Performed By: #### 2 97528 ####[facility] [place],[address] [place], [place] [id number] Nitrite Ql (U) Negative Normal NORMAL: NEGATIVE [facility] Comment on above: Performed By: #### 2 92410 ####[facility] [place],[address] [place] [address] pH (U) 8 [pH] Normal NORMAL: 5.0-8.0 [facility] Comment on above: Performed By: #### 2 24472 ####[facility] [place],[address] [place], [place] [id number] Protein Ql (U) 15 Abnormal NORMAL: NEGATIVE [facility] Comment on above: Performed By: #### 2 93088 ####[facility] [place],[address] [place], [place] [id number] Rbc NONE Normal 0-3/hpf [facility] [place] Comment on above: Performed By: #### 2 12861 ####[facility] [place],[address] [place], [place] [id number] Sp [place] 1.010 Normal NORMAL: 1.010-1.030 [facility] [place] Comment on above: Performed By: #### 2 36556 ####[facility] [place],[address] [place] [address] Specimen Type UNSPECIFIED Normal [facility] [place] Comment on above: Performed By: #### 2 01982 ####[facility] [place],[address] [place] [address] Urinalysis dipstick W Reflex Microscopic panel (U) SEE BELOW Normal [facility] [place] Comment on above: Result Comment: MICR OSCOPIC Performed By: #### 2 89285 ####[facility] [place],[address] [place] [address] Urobilinog NORM Normal NORMAL: NORMAL [facility] Comment on above: Performed By: #### 2 65791 ####[facility] [place],[address] [place] [address] Wbc 1-5 Normal 0-5/hpf [facility] [place] Comment on above: Performed By: #### 2 [id number] ####[facility] [place],[address] [place] [address] Yeast NONE Normal [facility] [place] Comment on above: Performed By: #### 2 86160 ####[facility] [place],[address] [place] [address] .GFRon 06-09-2024 GFR >60 Normal [facility] ([place]) Comment on above: Result Comment: GFR Population [...] 15 mL/min/1.73 square meters Performed By: #### G FR, BMP #### [facility] [address] [place] [address] GFR Non- >60 Normal [facility] ([place]) Comment on above: Result Comment: GFR Population [...] 15 mL/min/1.73 square meters Performed By: #### G , BMP #### [address] [address] [facility] BUN/Creatinine Ratio 14.1 ratio Normal 10.0-22.0 [facility] ([place]) Comment on above: Performed By: #### Deondre VALDES, BMP #### [address] [address] Calcium [Mass/Vol] 9.0 mg/dL Normal 8.7-10.4 [facility] ([place]) Comment on above: Performed By: #### Deondre VALDES, BMP #### [address] [address] Chloride [Moles/Vol] 113 mmol/L High 98-110 [facility] ([place]) Comment on above: Performed By: #### Deondre VALDES, BMP #### [address] [address] CO2 [Moles/Vol] 22 mmol/L Normal 22-32 [facility] ([place]) Comment on above: Performed By: #### Deondre VALDES, BMP #### [address] [address] Creatinine [Mass/Vol] 0.85 mg/dL Normal 0.50-1.20 [facility] ([place]) Comment on above: Performed By: #### Deondre VALDES, BMP #### [address] [address] Electrolyte Balance 5.0 mEq/L Normal 4.0-15.0 [facility] ([place]) Comment on above: Performed By: #### G , BMP #### [facility] [address] [place] [address] Glucose [Mass/Vol] 98 mg/dL Normal 70-110 [facility] ([place]) Comment on above: Performed By: #### G FR, BMP #### [facility] [address] [place] [address] Potassium [Moles/Vol] 4.2 mmol/L Normal 3.5-5.0 [facility] ([place]) Comment on above: Result Comment: Spec imen slightly hemolyzed. Performed By: #### G FR, BMP #### [address] [address] Sodium [Moles/Vol] 140 mmol/L Normal 136-145 [facility] ([place]) Comment on above: Performed By: #### G , BMP #### [address] [address] Urea nitrogen [Mass/Vol] 12.0 mg/dL Normal 8.0-22.0 [facility] ([place]) Comment on above: Performed By: #### G , BMP #### [address] [address] LABORATORYOrdered By: Tamia Woodson on 06-09-2024 Beta HCG ( test) Ql (U) Negative (06/09/24 7:24 AM) [facility] Work Phone: LABORATORYOrdered By: SYSTEM SYSTEM on 06-09-2024 Calcium [Mass/Vol] 9.0 mg/dL Normal 8.7 - 10. 4 mg/dL AH ADM SS Chloride [Moles/Vol] 113 mmol/L High 98 - 11 0 mEq/L AH ADM SS CO2 [Moles/Vol] 22 mmol/L Normal 22 - 32 mEq/L AH ADM SS Creatinine [Mass/Vol] 0.85 mg/dL Normal 0.50 - 1.20 mg/dL ADM SS Electrolyte Balance 5.0 mEq/L Normal 4.0 - 15 .0 mEq/L ADM SS GFR/1.73 sq M.predicted among blacks MDRD (S/P/Bld) [Vol rate/Area] ml/min/1.73sqm Invalid Interpretation Code [facility] Comment on above: Interpretive Data: [...] (S/P/Bld) [Vol rate/Area] ml/min/1.73sqm Invalid Interpretation Code [facility] Comment on above: Interpretive Data: [...] Normal 10.0 - 22.0 ratio ADM SS LABORATORYOrdered By: Marisa Dutton on 03-03-2024 Beta HCG ( test) Ql (U) Negative (03/03/24 1:07 PM) [facility] Work Phone: .Auto Diffon 01-21-2024 Basophil, Absolute 0.1 10 3/mcL Normal 0.0-0.3 [facility] ([place]) Comment on above: Performed By: #### C BC, ADIFF, PRO, BMP, ANEU, GFR #### [address] [address] Basophils/100 WBC (Bld) 0.8 % Normal 0.0-2.5 A [facility] ([place]) Comment on above: Performed By: #### C BC, ADIFF, PRO, BMP, ANEU, GFR #### [address] [address] Eosinophil, Absolute 0.2 10 3/mcL Normal 0.0-0.7 [facility] ([place]) Comment on above: Performed By: #### C BC, ADIFF, PRO, BMP, ANEU, GFR #### [address] [address] Eosinophils/100 WBC (Bld) 1.4 % Normal 0.0-6.0 [facility] ([place]) Comment on above: Performed By: #### C BC, ADIFF, PRO, BMP, ANEU, GFR #### [address] [address] Lymphocyte, Absolute 1.9 10 3/mcL Normal 0.9-4.3 [facility] ([place]) Comment on above: Performed By: #### C BC, ADIFF, PRO, BMP, ANEU, GFR #### [address] [address] Lymphocytes/100 WBC (Bld) 16.4 % Low 20.0-40.0 [facility] ([place]) Comment on above: Performed By: #### C BC, ADIFF, PRO, BMP, ANEU, GFR #### [address] [address] Monocyte, Absolute 1.1 10 3/mcL Normal 0.1-1.4 [facility] ([place]) Comment on above: Performed By: #### C BC, ADIFF, PRO, BMP, ANEU, GFR #### [address] [address] Monocytes/100 WBC (Bld) 9.9 % Normal 2.0-13.0 [facility] ([place]) Comment on above: Performed By: #### C BC, ADIFF, PRO, BMP, ANEU, GFR #### [address] [address] Neutrophils/100 WBC (Bld) 71.5 % Normal 50.0-75.0 [facility] ([place]) Comment on above: Performed By: #### C BC, ADIFF, PRO, BMP, ANEU, GFR #### [address] [address] .GFRon 01-21-2024 GFR Non- >60 Normal [facility] ([place]) Comment on above: Result Comment: GFR Population [...] BC, ADIFF, PRO, BMP, ANEU, GFR #### [address] [address] GFR >60 Normal [facility] ([place]) Comment on above: Result Comment: GFR Population [...] BC, ADIFF, PRO, BMP, ANEU, GFR #### [address] [address] .NEUABSon 01-21-2024 Neutrophil, Absolute 8.1 10 3/mcL Normal 2.3-8.1 [facility] ([place]) Comment on above: Performed By: #### C BC, ADIFF, PRO, BMP, ANEU, GFR #### [place] [address] BMPon 01-21-2024 BUN/Creatinine Ratio 13.3 ratio Normal 10.0-22.0 [facility] ([place]) Comment on above: Order Comment: Speci men hemolyzed. called to ally in SDU for recollect at 01/21/2024 12:12:11 EDT Performed By: #### C BC, ADIFF, PRO, BMP, ANEU, GFR #### [place] [address] Calcium [Mass/Vol] 10.2 mg/dL Normal 8.7-10.4 [facility] ([place]) Comment on above: Order Comment: Speci men hemolyzed. called to ally in SDU for recollect at 01/21/2024 12:12:11 EDT Performed By: #### C BC, ADIFF, PRO, BMP, ANEU, GFR #### [place] [address] Chloride [Moles/Vol] 106 mmol/L Normal 98-110 [facility] ([place]) Comment on above: Order Comment: Speci men hemolyzed. called to ally in SDU for recollect at 01/21/2024 12:12:11 EDT Performed By: #### C BC, ADIFF, PRO, BMP, ANEU, GFR #### [place] [address] CO2 [Moles/Vol] 20 mmol/L Low 22-32 [facility] ([place]) Comment on above: Order Comment: Speci men hemolyzed. called to ally in SDU for recollect at 01/21/2024 12:12:11 EDT Performed By: #### C BC, ADIFF, PRO, BMP, ANEU, GFR #### [address] [address] Creatinine [Mass/Vol] 0.90 mg/dL Normal 0.50-1.20 [facility] ([place]) Comment on above: Order Comment: Speci men hemolyzed. called to ally in SDU for recollect at 01/21/2024 12:12:11 EDT Performed By: #### C BC, ADIFF, PRO, BMP, ANEU, GFR #### [address] [address] Electrolyte Balance 9.0 mEq/L Normal 4.0-15.0 [facility] ([place]) Comment on above: Order Comment: Speci men hemolyzed. called to ally in SDU for recollect at 01/21/2024 12:12:11 EDT Performed By: #### C BC, ADIFF, PRO, BMP, ANEU, GFR #### [address] [address] Glucose [Mass/Vol] 85 mg/dL Normal 70-110 [facility] ([place]) Comment on above: Order Comment: Speci men hemolyzed. called to ally in SDU for recollect at 01/21/2024 12:12:11 EDT Performed By: #### C BC, ADIFF, PRO, BMP, ANEU, GFR #### [address] [address] Potassium [Moles/Vol] 5.8 mmol/L High 3.5-5.0 [facility] ([place]) Comment on above: Order Comment: Speci men hemolyzed. called to ally in SDU for recollect at 01/21/2024 12:12:11 EDT Result Comment: Spec imen hemolyzed. Results may be falsely elevated. Performed By: #### C BC, ADIFF, PRO, BMP, ANEU, GFR #### [address] [address] Sodium [Moles/Vol] 135 mmol/L Low 136-145 [facility] ([place]) Comment on above: Order Comment: Speci men hemolyzed. called to ally in SDU for recollect at 01/21/2024 12:12:11 EDT Performed By: #### C BC, ADIFF, PRO, BMP, ANEU, GFR #### [place] [id number] Urea nitrogen [Mass/Vol] 12.0 mg/dL Normal 8.0-22.0 [facility] ([place]) Comment on above: Order Comment: Speci men hemolyzed. called to ally in SDU for recollect at 01/21/2024 12:12:11 EDT Result Comment: Spec imen hemolyzed. Results may be falsely elevated. Performed By: #### C BC, ADIFF, PRO, BMP, ANEU, GFR #### [address] [address] CBCon 01-21-2024 Erythrocyte distribution width (RBC) [Ratio] 17.2 % High 11.5-15.5 [facility] ([place]) Comment on above: Performed By: #### C BC, ADIFF, PRO, BMP, ANEU, GFR #### [place] [id number] Hematocrit (Bld) [Volume fraction] 44.3 % Normal 34.0-46.0 [facility] ([place]) Comment on above: Performed By: #### C BC, ADIFF, PRO, BMP, ANEU, GFR #### [address] [address] Hgb 15.0 G/dL Normal 12.0-16.0 [facility] ([place]) Comment on above: Performed By: #### C BC, ADIFF, PRO, BMP, ANEU, GFR #### [address] [address] MCH (RBC) [Entitic mass] 31.3 pg Normal 27.0-33.0 [facility] ([place]) Comment on above: Performed By: #### C BC, ADIFF, PRO, BMP, ANEU, GFR #### [place] [address] MCHC 33.8 G/dL Normal 32.0-36.0 [facility] ([place]) Comment on above: Performed By: #### C BC, ADIFF, PRO, BMP, ANEU, GFR #### [place] [address] MCV (RBC) [Entitic vol] 92.6 fL Normal 80.0-99.0 A [facility] ([place]) Comment on above: Performed By: #### C BC, ADIFF, PRO, BMP, ANEU, GFR #### [place] [address] Platelet 429 10 3/mcL Normal 150-450 [facility] ([place]) Comment on above: Performed By: #### C BC, ADIFF, PRO, BMP, ANEU, GFR #### [place] [address] Platelet mean volume (Bld) [Entitic vol] 6.7 fL Normal 6.6-10.5 [facility] ([place]) Comment on above: Performed By: #### C BC, ADIFF, PRO, BMP, ANEU, GFR #### [place] [address] RBC 4.78 10 6/mcL Normal 4.10-5.30 [facility] ([place]) Comment on above: Performed By: #### C BC, ADIFF, PRO, BMP, ANEU, GFR #### [place] [address] WBC 11.3 10 3/mcL High 4.5-10.8 [facility] ([place]) Comment on above: Performed By: #### C BC, ADIFF, PRO, BMP, ANEU, GFR #### [place] [address] LABORATORYOrdered By: SYSTEM SYSTEM on 01-21-2024 Calcium [Mass/Vol] 10.2 mg/dL Normal 8.7 - 10. 4 mg/dL AH ADM SS Chloride [Moles/Vol] 106 mmol/L Normal 98 - 11 0 mEq/L ADM SS CO2 [Moles/Vol] 20 mmol/L Low 22 - 32 mEq/L ADM SS Creatinine [Mass/Vol] 0.90 mg/dL Normal 0.50 - 1.20 mg/dL ADM SS Electrolyte Balance 9.0 mEq/L Normal [...] (S/P/Bld) [Vol rate/Area] ml/min/1.73sqm Invalid Interpretation Code [facility] S Comment on above: Interpretive Data: [...] 10^3/mcL AH Workflow SS Basophils/100 WBC (Bld) 0.8 % Normal 0.0 - 2.5 % AH Workflow SS Eosinophils (Bld) [#/Vol] 0.2 103/mcL Normal 0.0 - 0.7 10^3/mcL AH Workflow SS Eosinophils/100 WBC (Bld) 1.4 % Normal 0.0 - 6.0 % AH Workflow SS Erythrocyte distribution width (RBC) [Ratio] 17.2 % High 11.5 - 15.5 % AH Workflow SS Hematocrit (Bld) [Volume fraction] 44.3 % Normal 34.0 - 46.0 % AH Workflow SS Hemoglobin (Bld) [Mass/Vol] 15.0 G/dL Normal 12.0 - 16.0 G/dL AH Workflow SS Lymphocytes (Bld) [#/Vol] 1.9 103/mcL Normal 0.9 - 4.3 10^3/mcL AH Workflow SS Lymphocytes/100 WBC (Bld) 16.4 % Low 20.0 - 40.0 % Workflow SS MCH (RBC) [Entitic mass] 31.3 pg Normal 27.0 - 33.0 pg AH Workflow SS MCHC 33.8 G/dL Normal 32.0 - 36.0 G/dL Workflow SS MCV (RBC) [Entitic vol] 92.6 fL Normal 80.0 - 99.0 fL Workflow SS Monocytes (Bld) [#/Vol] 1.1 103/mcL Normal 0.1 - 1.4 10^3/mcL Workflow SS Monocytes/100 WBC (Bld) 9.9 % Normal 2.0 - 13.0 % Workflow SS Neutrophils (Bld) [#/Vol] 8.1 103/mcL Normal 2.3 - 8.1 10^3/mcL Workflow SS Neutrophils/100 WBC (Bld) 71.5 % Normal 50.0 - 75.0 % Workflow SS Platelet mean volume (Bld) [Entitic vol] 6.7 fL Normal 6.6 - 10.5 fL Workflow SS Platelets (Bld) [#/Vol] 429 103/mcL Normal 150 - 450 10^3/mcL Workflow SS RBC (Bld) [#/Vol] 4.78 106/mcL Normal 4.10 - 5.3 0 10^6/mcL Workflow SS WBC (Bld) [#/Vol] 11.3 103/mcL High 4.5 - 10.8 10^3/mcL Workflow SS LABORATORYOrdered By: Josue Rodrigez on 01-21-2024 Beta HCG ( test) Ql (U) Negative (01/21/24 11:50 AM) [facility] Work Phone: LABORATORYOrdered By: Delmar Long on 01-21-2024 PT Coag (PPP) [Time] 12.6 s Normal 9.0 - 1 4.2 seconds [facility] Comment on above: Interpretive Data: E ffective 05/17/08, Protime results may be affected by some antibiotics (i.e. Ciprofloxacin, Azithromycin, Bactrim) which may potentiate the action of oral anticoagulants, with further increases in Protime/INR. PT International Ratio 1.1 ratio Invalid Interpretation Code [facility] Comment on above: Interpretive Data: Haja ambrosio [employer] (CHEST, 1991, 102:312S-25S) recommended therapeutic range for oral anticoagulant therapy is: LOW RISK: Prophylaxis of venous thrombosis INR: 2.0-3.0 Treatment of pulmonary embolism 2.0-3.0 Prevention of systemic embolism 2.0-3.0 HIGH RISK: Mechanical prosthetic valves 2.5-3.5 PROon 01-21-2024 INR Coag (PPP) [Relative time] 1.1 {INR} Normal [facility] ([place]) Comment on above: Result Comment: [employer] (CHEST, 1992, 102:312S-25S) recommended therapeutic range for oral anticoagulant therapy is: LOW RISK: Prophylaxis of venous thrombosis INR: 2.0-3.0 Treatment of pulmonary embolism 2.0-3.0 Prevention of systemic embolism 2.0-3.0 HIGH RISK: Mechanical prosthetic valves 2.5-3.5 Performed By: #### C BC, ADIFF, PRO, BMP, ANEU, GFR #### [place] [id number] [place] [address] PT Coag (PPP) [Time] 12.6 s Normal 9.0-14.2 [facility] ([place]) Comment on above: Result Comment: Effe ctive 05/17/08, Protime results may be affected by some antibiotics (i.e. Ciprofloxacin, Azithromycin, Bactrim) which may potentiate the action of oral anticoagulants, with further increases in Protime/INR. Performed By: #### C BC, ADIFF, PRO, BMP, ANEU, GFR #### [address] [address] [employer]ist Cytology Reporton 2023 [employer] Specialist Cytology Report . Pathology Reports Accession: Collected Date/Time: Received Date/Time: Pathologist: [id number] 12/08/2023 16:49 EST 12/08/2023 18:00 TRICIA HINKLE MD Nuclear Operations Specialist Cytology Report SPECIMEN: Specimen Description: Liquid Prep [...] Reports Accession: Collected Date/Time: Received Date/Time: Pathologist: [id number] 12/08/2023 16:49 EST 12/08/2023 18:00 EST TRICIA CAST MD COMMENT: This Pap Test was successfully processed and evaluated with the assistance of the [employer] Test Imaging System. Electronically Signed by Pathology report verified by [facility] Screened by: DANY DW Electronically signed by TRICIA CAST Sign-Out Date: 12/12/2023 17:27 Performing Lab: [facility], [address] [place] [address] Pathology Dept Disclaimer The Pap test is a screening test for cervical cancer. As evidenced by published data, it is subject to both inherent false negative and false positive results. Your patient's results should be interpreted in context with pertinent clinical history including gynecological examination. Normal [facility] ([place]) HPVon 12-10-2023 HPV Interp Normal See Interp HPVN [facility] ([place]) Comment on above: Order Comment: Order placed by AP_HPV_ORDER rule from [id number] Result Comment: High Risk HPV Typing: NEGATIVE [...] BC, ADIFF, PRO, BMP, ANEU, GFR #### [place] [address] HPV Source Cervix Normal [facility] ([place]) Comment on above: Order Comment: Order placed by AP_HPV_ORDER rule from [id number] Performed By: #### C BC, ADIFF, PRO, BMP, ANEU, GFR #### [place] [address] DRUGUon 12-08-2023 Amphetamine (u) Negative Normal Negative [facility] ([place]) Comment on above: Performed By: #### U OXYS, DRUGU #### [place] [address] Barbiturate (u) Negative Normal Negative [facility] ([place]) Comment on above: Performed By: #### U OXYS, DRUGU #### [place] [address] Benzodiazepine (u) Negative Normal Negative [facility] ([place]) Comment on above: Performed By: #### U OXYS, DRUGU #### [place] [address] Cannabinoid (u) Positive Abnormal Negative [facility] ([place] Comment on above: Performed By: #### U OXYS, DRUGU #### [place] [address] Cocaine Ql (U) Negative Normal Negative [facility] ([place] Comment on above: Performed By: #### U OXYS, DRUGU #### [place] [address] Fentanyl (u) Negative Normal Negative [facility] ([place] Comment on above: Result Comment: Test ing has been performed FOR MEDICAL PURPOSES ONLY. Performed By: #### U OXYS, DRUGU #### [place] [address] Methadone Ql (U) Negative Normal Negative [facility] ([place]) Comment on above: Performed By: #### U OXYS, DRUGU #### [facility] [address] [place], [place] [address] Opiate (u) Negative Normal Negative [facility] ([place]) Comment on above: Performed By: #### U OXYS, DRUGU #### [address] [address] Oxycodone (u) Negative Normal Negative [facility] ([place] Comment on above: Result Comment: Test ing has been performed FOR MEDICAL PURPOSES ONLY. Performed By: #### U OXYS, DRUGU #### [address] [address] PCP (u) Negative Normal Negative [facility] ([place]) Comment on above: Performed By: #### U OXYS, DRUGU #### [address] [address] Propoxyphene (u) Negative Normal Negative [facility] ([place] Comment on above: Performed By: #### U OXYS DRUGU #### [address] [address] U pH Drug Scrn 8.0 Normal 5.0-8.0 [facility] ([place] Comment on above: Performed By: #### U OXYS DRUGU #### [address] [address] Urine Drugs screened: See Below Normal [facility] ([place]) Comment on above: Result Comment: This drug [...] Performed By: #### U OXYS, DRUGU #### [address] [address] LABORATORYOrdered By: Alanna Russo on 02-05-2024 Amphetamines Screen Ql (U) Negative *NA* (12/08/23 [...] NEPHROSTOMY EXCHANGE ORIGINAL EXAMINATION: IR NEPHROSTOMY TUBE [id number]/22/2023 3:02 pm IR NEPHROSTOMY TUBE CHANGE HISTORY: [...] 4:31:01 PM Ordering Provider: FLIP MARTIN Normal [facility] ([place]) DRUGUon 07-30-2023 Amphetamine (u) Negative Normal Negative [facility] ([place]) Comment on above: Performed By: #### U OXYS, DRUGU #### [facility] [address] [place] [address] Barbiturate (u) Negative Normal Negative [facility] ([place]) Comment on above: Performed By: #### U OXYS, DRUGU #### [facility] [address] [place] [address] Benzodiazepine (u) Negative Normal Negative [facility] ([place] Comment on above: Performed By: #### U OXYS, DRUGU #### [address] [address] Cannabinoid (u) Positive Abnormal Negative [facility] ([place] Comment on above: Performed By: #### U OXYS, DRUGU #### [address] [address] Cocaine Ql (U) Negative Normal Negative [facility] ([place] Comment on above: Performed By: #### U OXYS, DRUGU #### [address] [address] Fentanyl (u) Negative Normal Negative [facility] ([place] Comment on above: Result Comment: Test ing has been performed FOR MEDICAL PURPOSES ONLY. Performed By: #### U OXYS, DRUGU #### [address] [address] Methadone Ql (U) Negative Normal Negative [facility] ([place] Comment on above: Performed By: #### U OXYS, DRUGU #### [address] [address] Opiate (u) Positive Abnormal Negative [facility] ([place] Comment on above: Performed By: #### U OXYS, DRUGU #### [address] [address] Oxycodone (u) Positive Abnormal Negative [facility] ([place] Comment on above: Result Comment: Test ing has been performed FOR MEDICAL PURPOSES ONLY. Performed By: #### U OXYS, DRUGU #### [address] [address] PCP (u) Negative Normal Negative [facility] ([place] Comment on above: Performed By: #### U OXYS, DRUGU #### [place] [id number] [place] [address] Propoxyphene (u) Negative Normal Negative [facility] ([place]) Comment on above: Performed By: #### U OXYYesenia DRUGU #### [place] [id number] [place] [address] U pH Drug Scrn 5.5 Normal 5.0-8.0 [facility] ([place]) Comment on above: Performed By: #### U OXYS DRUGU #### [address] [address] Urine Drugs screened: See Below Normal [facility] ([place]) Comment on above: Result Comment: This drug [...] MEDICAL PURPOSES ONLY. Performed By: #### U ADRIAN DRUGU #### [address] [address] IR TUNNELED CATHETER INSERTI ON/PORTon 07-28-2023 IR TUNNELED CATHETER INSERTION/PORT ORIGINAL HISTORY: Cervical cancer with port unable to aspirate blood. Fibrin sheath confirmed on venogram 07/24/2023. Port placed 05/02/[address] Mason PROCEDURE: 1. Ultrasound guidance for venous access 2. Port venogram under fluoroscopy 3. Fibrin sheath stripping of right venous chest port TEAM TRUCK DRIVER: Dr. Aparicio ROUNDER HAND: None MATERIALS: 6 Fr sheath Snare J [...] change in 8 weeks Interpreted by: Madeline Aapricio MD Preliminary Report By: Madeline Aparicio MD Electronically signed By Madeline Aparicio MD Dictated Date: 07/28/2023 7:52:24 PM Prelim Date: 07/28/2023 8:00:17 PM Sign Date: 07/28/2023 8:00:17 PM Ordering Provider: BRITTNI LU [facility] ([place]) IR NEPHROSTOMY TUBE CHANGE L EFT W/GUIDEon [...] to nephrostomy catheter under fluoroscopy LATERALITY: Left TEAM TRUCK DRIVER: Dr. Aparicio ROUNDER HAND: None The procedure, risks, and alternatives, were discussed and all questions were answered. Informed consent obtained. Maximal sterile barrier technique, hand hygiene, skin prep, and sterile ultrasound techniques (if used) utilized. Percutaneous site was sterilely prepped and draped. Time out performed. Manager [employer] image demonstrates nephroureteral catheter. Contrast injection through [...] unchanged MATERIALS: 10 Fr drainage catheter Amplatz [place] Port bag ANESTHESIA: General anesthesia FLUORO: 1.5 min AIR KERMA DOSE: 14 mGy CONTRAST: Documented in Surginet. IMPRESSION: 1. Successful, uncomplicated conversion of nephroureteral catheter to a nephrostomy tube. Interpreted by: Madeline Aparicio MD Preliminary Report By: Madeline Aparicio MD Electronically signed By Madeline Aparicio MD Dictated Date: 07/26/2023 1:00:55 PM Prelim Date: 07/26/2023 1:06:17 PM Sign Date: 07/26/2023 1:06:17 PM Ordering Provider: FLIP Aragon [facility] ([place]) .Auto Diffon 07-16-2023 Basophil, Absolute 0.1 10 3/mcL Normal 0.0-0.3 [facility]) Comment on above: Performed By: #### C BC, ADIFF, PRO, BMP, ANEU, GFR #### [address] [address] Basophils/100 WBC (Bld) 1.4 % Normal 0.0-2.5 A [facility] ([place]) Comment on above: Performed By: #### C BC, ADIFF, PRO, BMP, ANEU, GFR #### [address] [address] Eosinophil, Absolute 0.6 10 3/mcL Normal 0.0-0.7 [facility] ([place]) Comment on above: Performed By: #### C BC, ADIFF, PRO, BMP, ANEU, GFR #### [address] [address] Eosinophils/100 WBC (Bld) 7.7 % High 0.0-6.0 [facility] ([place]) Comment on above: Performed By: #### C BC, ADIFF, PRO, BMP, ANEU, GFR #### [address] [address] Lymphocyte, Absolute 2.1 10 3/mcL Normal 0.9-4.3 [facility] ([place]) Comment on above: Performed By: #### C BC, ADIFF, PRO, BMP, ANEU, GFR #### [address] [address] Lymphocytes/100 WBC (Bld) 26.7 % Normal 20.0-40.0 [facility] ([place]) Comment on above: Performed By: #### C BC, ADIFF, PRO, BMP, ANEU, GFR #### [address] [address] Monocyte, Absolute 1.0 10 3/mcL Normal 0.1-1.4 [facility] ([place]) Comment on above: Performed By: #### C BC, ADIFF, PRO, BMP, ANEU, GFR #### [address] [address] Monocytes/100 WBC (Bld) 12.7 % Normal 2.0-13.0 [facility] ([place]) Comment on above: Performed By: #### C BC, ADIFF, PRO, BMP, ANEU, GFR #### [address] [address] Neutrophils/100 WBC (Bld) 51.5 % Normal 50.0-75.0 [facility] ([place]) Comment on above: Performed By: #### C BC, ADIFF, PRO, BMP, ANEU, GFR #### [address] [address] .GFRon 07-16-2023 GFR >60 Normal [facility] ([place]) Comment on above: Result Comment: GFR [...] BC, ADIFF, PRO, BMP, ANEU, GFR #### [address] [address] GFR Non- >60 Normal [facility] ([place]) Comment on above: Result Comment: GFR Population [...] BC, ADIFF, PRO, BMP, ANEU, GFR #### [address] [address] .NEUABSon 07-16-2023 Neutrophil, Absolute 4.0 10 3/mcL Normal 2.3-8.1 [facility] ([place]) Comment on above: Performed By: #### C BC, ADIFF, PRO, BMP, ANEU, GFR #### [address] [address] CBCon 07-16-2023 Erythrocyte distribution width (RBC) [Ratio] 15.7 % High 11.5-15.5 [facility] ([place]) Comment on above: Performed By: #### C BC, ADIFF, PRO, BMP, ANEU, GFR #### [place] [address] Hematocrit (Bld) [Volume fraction] 36.9 % Normal 34.0-46.0 [facility] ([place]) Comment on above: Performed By: #### C BC, ADIFF, PRO, BMP, ANEU, GFR #### [place] [address] Hgb 12.3 G/dL Normal 12.0-16.0 [facility] ([place]) Comment on above: Performed By: #### C BC, ADIFF, PRO, BMP, ANEU, GFR #### [place] [address] MCH (RBC) [Entitic mass] 30.1 pg Normal 27.0-33.0 [facility] ([place]) Comment on above: Performed By: #### C BC, ADIFF, PRO, BMP, ANEU, GFR #### [place] [address] MCHC 33.3 G/dL Normal 32.0-36.0 [facility] ([place]) Comment on above: Performed By: #### C BC, ADIFF, PRO, BMP, ANEU, GFR #### [place] [address] MCV (RBC) [Entitic vol] 90.3 fL Normal 80.0-99.0 [facility] ([place]) Comment on above: Performed By: #### C BC, ADIFF, PRO, BMP, ANEU, GFR #### [place] [address] Platelet 396 10 3/mcL Normal 150-450 [facility] ([place]) Comment on above: Performed By: #### C BC, ADIFF, PRO, BMP, ANEU, GFR #### [place] [address] Platelet mean volume (Bld) [Entitic vol] 7.1 fL Normal 6.6-10.5 [facility] ([place]) Comment on above: Performed By: #### C BC, ADIFF, PRO, BMP, ANEU, GFR #### [address] [address] RBC 4.08 10 6/mcL Low 4.10-5.30 [facility] ([place]) Comment on above: Performed By: #### C BC, ADIFF, PRO, BMP, ANEU, GFR #### [place] [address] WBC 7.9 10 3/mcL Normal 4.5-10.8 [facility] ([place]) Comment on above: Performed By: #### C BC, ADIFF, PRO, BMP, ANEU, GFR #### [place] [address] CMPon 07-16-2023 ALT/SGPT <7 Low 10-49 [facility] ([place]) Comment on above: Performed By: #### C BC, ADIFF, PRO, BMP, ANEU, GFR #### [place] [address] Bili Total <0.20 Normal 0.20-1.20 [facility] ([place]) Comment on above: Result Comment: Use of this assay is not recommended for patients undergoing treatment with eltrombopag due to the potential for falsely elevated results. Performed By: #### C BC, ADIFF, PRO, BMP, ANEU, GFR #### [place] [address] BUN/Creatinine Ratio Unable to Calculate Normal 10.0-2 2.0 [facility] ([place]) Comment on above: Result Comment: Unab le to calculate this test result accurately. Results used to calculate this test are outside the reportable range. Performed By: #### C BC, ADIFF, PRO, BMP, ANEU, GFR #### [place] [id number] Urea nitrogen [Mass/Vol] mg/dL Low 8.0-22.0 [facility] ([place]) Comment on above: Performed By: #### C BC, ADIFF, PRO, BMP, ANEU, GFR #### [place] [address] Albumin Level 2.8 G/dL Low 3.2-4.8 [facility] ([place]) Comment on above: Performed By: #### C BC, ADIFF, PRO, BMP, ANEU, GFR #### [address] [address] Albumin/Globulin [Mass ratio] 0.8 {ratio} Low 0.9-1.6 [facility] ([place]) Comment on above: Performed By: #### C BC, ADIFF, PRO, BMP, ANEU, GFR #### [address] [address] ALP [Catalytic activity/Vol] 83 U/L Normal 38-126 [facility] ([place]) Comment on above: Performed By: #### C BC, ADIFF, PRO, BMP, ANEU, GFR #### [address] [address] AST [Catalytic activity/Vol] 9 U/L Normal 8-34 [facility] ([place]) Comment on above: Performed By: #### C BC, ADIFF, PRO, BMP, ANEU, GFR #### [address] [address] Calcium [Mass/Vol] 9.4 mg/dL Normal 8.7-10.4 [facility] ([place]) Comment on above: Performed By: #### C BC, ADIFF, PRO, BMP, ANEU, GFR #### [address] [address] Chloride [Moles/Vol] 103 mmol/L Normal 98-110 [facility] ([place]) Comment on above: Performed By: #### C BC, ADIFF, PRO, BMP, ANEU, GFR #### [address] [address] CO2 [Moles/Vol] 28 mmol/L Normal 22-32 [facility] ([place]) Comment on above: Performed By: #### C BC, ADIFF, PRO, BMP, ANEU, GFR #### [address] [address] Creatinine [Mass/Vol] 0.76 mg/dL Normal 0.50-1.20 [facility] ([place]) Comment on above: Performed By: #### C BC, ADIFF, PRO, BMP, ANEU, GFR #### [address] [address] Electrolyte Balance 7.0 mEq/L Normal 4.0-15.0 [facility] ([place]) Comment on above: Performed By: #### C BC, ADIFF, PRO, BMP, ANEU, GFR #### [address] [address] Globulin 3.3 G/dL Normal 1.5-3.8 [facility] ([place]) Comment on above: Performed By: #### C BC, ADIFF, PRO, BMP, ANEU, GFR #### [address] [address] Glucose [Mass/Vol] 98 mg/dL Normal 70-110 [facility] ([place]) Comment on above: Performed By: #### C BC, ADIFF, PRO, BMP, ANEU, GFR #### [address] [address] Potassium [Moles/Vol] 4.5 mmol/L Normal 3.5-5.0 [facility] ([place]) Comment on above: Performed By: #### C BC, ADIFF, PRO, BMP, ANEU, GFR #### [address] [address] Sodium [Moles/Vol] 138 mmol/L Normal 136-145 [facility] ([place]) Comment on above: Performed By: #### C BC, ADIFF, PRO, BMP, ANEU, GFR #### [place] [address] Total Protein 6.1 G/dL Normal 5.7-8.2 [facility] ([place]) Comment on above: Result Comment: No te - New Reference Range in effect 20 Performed By: #### C BC, ADIFF, PRO, BMP, ANEU, GFR #### [address] [address] LABORATORYOrdered By: SYSTEM SYSTEM on 07-16-2023 Albumin BCP dye [Mass/Vol] 2.8 G/dL Invalid Interpretation Code 3.2 - 4.8 G/dL ADM SS Albumin/Globulin [Mass ratio] 0.8 {ratio} Invalid Interpretation Code 0.9 - 1.6 ratio ADM SS ALP [Catalytic activity/Vol] 83 U/L [...] 0.3 10^3/mcL Workflow SS Basophils/100 WBC (Bld) 1.4 % [...] - 32 mEq/L ADM SS Creatinine [Mass/Vol] 0.76 mg/dL Invalid [...] 16.0 G/dL Workflow SS Lymphocytes (Bld) [#/Vol] 2.1 103/mcL Invalid Interpretation Code 0.9 - 4.3 10^3/mcL Workflow SS Lymphocytes/100 WBC (Bld) 26.7 % [...] - 5.0 mEq/L ADM SS Protein [Mass/Vol] 6.1 G/dL Invalid Interpretation Code 5.7 - 8.2 G/dL ADM SS Comment on above: Interpretive Data: * *Note - New Reference Range in effect 20 RBC (Bld) [#/Vol] 4.08 106/mcL Invalid Interpretation Code 4.10 - 5.30 10^6/mcL AH Workflow SS Sodium [Moles/Vol] 138 mmol/L Invalid Interpretation Code 136 - 145 mEq/L ADM SS WBC (Bld) [#/Vol] 7.9 103/mcL [...] 07-16-2023 Magnesium [Mass/Vol] 2.0 mg/dL Normal 1.6-2.4 [facility] ([place]) Comment on above: Performed By: #### C BC, ADIFF, PRO, BMP, ANEU, GFR #### [place] [address] PHOSon 07-16-2023 Phosphate [Mass/Vol] 5.8 mg/dL High 2.4-5.1 [facility] ([place]) Comment on above: Result Comment: No te - New Reference Range in effect 20 Performed By: #### C BC, ADIFF, PRO, BMP, ANEU, GFR #### [address] [address] .Auto Diffon 07-15-2023 Basophil, Absolute 0.1 10 3/mcL Normal 0.0-0.3 [facility] ([place]) Comment on above: Performed By: #### C BC, ADIFF, PRO, BMP, ANEU, GFR #### [address] [address] Basophils/100 WBC (Bld) 1.2 % Normal 0.0-2.5 A [facility] ([place]) Comment on above: Performed By: #### C BC, ADIFF, PRO, BMP, ANEU, GFR #### [address] [address] Eosinophil, Absolute 0.6 10 3/mcL Normal 0.0-0.7 [facility] ([place]) Comment on above: Performed By: #### C BC, ADIFF, PRO, BMP, ANEU, GFR #### [address] [address] Eosinophils/100 WBC (Bld) 7.1 % High 0.0-6.0 [facility] ([place]) Comment on above: Performed By: #### C BC, ADIFF, PRO, BMP, ANEU, GFR #### [address] [address] Lymphocyte, Absolute 2.0 10 3/mcL Normal 0.9-4.3 [facility] ([place]) Comment on above: Performed By: #### C BC, ADIFF, PRO, BMP, ANEU, GFR #### [address] [address] Lymphocytes/100 WBC (Bld) 25.6 % Normal 20.0-40.0 [facility] ([place]) Comment on above: Performed By: #### C BC, ADIFF, PRO, BMP, ANEU, GFR #### [address] [address] Monocyte, Absolute 1.1 10 3/mcL Normal 0.1-1.4 [facility] ([place]) Comment on above: Performed By: #### C BC, ADIFF, PRO, BMP, ANEU, GFR #### [address] [address] Monocytes/100 WBC (Bld) 14.0 % High 2.0-13.0 A [facility] ([place]) Comment on above: Performed By: #### C BC, ADIFF, PRO, BMP, ANEU, GFR #### [address] [address] Neutrophils/100 WBC (Bld) 52.1 % Normal 50.0-75.0 [facility] ([place]) Comment on above: Performed By: #### C BC, ADIFF, PRO, BMP, ANEU, GFR #### [address] [address] .GFRon 07-15-2023 GFR >60 Normal [facility] ([place]) Comment on above: Result Comment: GFR Population [...] BC, ADIFF, PRO, BMP, ANEU, GFR #### [address] [address] GFR Non- >60 Normal [facility] ([place]) Comment on above: Result Comment: GFR Population [...] BC, ADIFF, PRO, BMP, ANEU, GFR #### [address] [address] .NEUABSon 07-15-2023 Neutrophil, Absolute 4.0 10 3/mcL Normal 2.3-8.1 [facility] ([place]) Comment on above: Performed By: #### C BC, ADIFF, PRO, BMP, ANEU, GFR #### [address] [address] CBCon 07-15-2023 Erythrocyte distribution width (RBC) [Ratio] 15.2 % Normal 11.5-15.5 [facility] ([place]) Comment on above: Performed By: #### C BC, ADIFF, PRO, BMP, ANEU, GFR #### [address] [address] Hematocrit (Bld) [Volume fraction] 35.2 % Normal 34.0-46.0 [facility] ([place]) Comment on above: Performed By: #### C BC, ADIFF, PRO, BMP, ANEU, GFR #### [place] [address] Hgb 11.9 G/dL Low 12.0-16.0 [facility] ([place]) Comment on above: Performed By: #### C BC, ADIFF, PRO, BMP, ANEU, GFR #### [place] [address] MCH (RBC) [Entitic mass] 30.3 pg Normal 27.0-33.0 [facility] ([place]) Comment on above: Performed By: #### C BC, ADIFF, PRO, BMP, ANEU, GFR #### [place] [address] MCHC 33.7 G/dL Normal 32.0-36.0 [facility] ([place]) Comment on above: Performed By: #### C BC, ADIFF, PRO, BMP, ANEU, GFR #### [place] [address] MCV (RBC) [Entitic vol] 89.9 fL Normal 80.0-99.0 A [facility] ([place]) Comment on above: Performed By: #### C BC, ADIFF, PRO, BMP, ANEU, GFR #### [place] [address] Platelet 358 10 3/mcL Normal 150-450 [facility] ([place]) Comment on above: Performed By: #### C BC, ADIFF, PRO, BMP, ANEU, GFR #### [place] [address] Platelet mean volume (Bld) [Entitic vol] 6.9 fL Normal 6.6-10.5 [facility] ([place]) Comment on above: Performed By: #### C BC, ADIFF, PRO, BMP, ANEU, GFR #### [place] [address] RBC 3.92 10 6/mcL Low 4.10-5.30 [facility] ([place]) Comment on above: Performed By: #### C BC, ADIFF, PRO, BMP, ANEU, GFR #### [address] [address] WBC 7.7 10 3/mcL Normal 4.5-10.8 [facility] ([place]) Comment on above: Performed By: #### C BC, ADIFF, PRO, BMP, ANEU, GFR #### [address] [address] CMPon 07-15-2023 Albumin Level 2.8 G/dL Low 3.2-4.8 [facility] ([place]) Comment on above: Performed By: #### C BC, ADIFF, PRO, BMP, ANEU, GFR #### [place] [phone] Albumin/Globulin [Mass ratio] 0.9 {ratio} Normal 0.9-1.6 [facility] ([place]) Comment on above: Performed By: #### C BC, ADIFF, PRO, BMP, ANEU, GFR #### [place] [address] ALP [Catalytic activity/Vol] 82 U/L Normal 38-126 [facility] ([place]) Comment on above: Performed By: #### C BC, ADIFF, PRO, BMP, ANEU, GFR #### [place] [address] ALT/SGPT <8 Low 10-49 [facility] ([place]) Comment on above: Performed By: #### C BC, ADIFF, PRO, BMP, ANEU, GFR #### [place] [phone] AST [Catalytic activity/Vol] 9 U/L Normal 8-34 [facility] ([place]) Comment on above: Performed By: #### C BC, ADIFF, PRO, BMP, ANEU, GFR #### [address] [address] Bili Total 0.20 mg/dL Normal 0.20-1.20 [facility] ([place]) Comment on above: Result Comment: Use of this assay is not recommended for patients undergoing treatment with eltrombopag due to the potential for falsely elevated results. Performed By: #### C BC, ADIFF, PRO, BMP, ANEU, GFR #### [address] [address] BUN/Creatinine Ratio 8.1 ratio Low 10.0-22.0 [facility] ([place]) Comment on above: Performed By: #### C BC, ADIFF, PRO, BMP, ANEU, GFR #### [address] [address] Calcium [Mass/Vol] 9.3 mg/dL Normal 8.7-10.4 [facility] ([place]) Comment on above: Performed By: #### C BC, ADIFF, PRO, BMP, ANEU, GFR #### [address] [address] Chloride [Moles/Vol] 104 mmol/L Normal 98-110 [facility] ([place]) Comment on above: Performed By: #### C BC, ADIFF, PRO, BMP, ANEU, GFR #### [place] [phone] CO2 [Moles/Vol] 25 mmol/L Normal 22-32 [facility] ([place]) Comment on above: Performed By: #### C BC, ADIFF, PRO, BMP, ANEU, GFR #### [address] [address] Creatinine [Mass/Vol] 0.74 mg/dL Normal 0.50-1.20 [facility] ([place]) Comment on above: Performed By: #### C BC, ADIFF, PRO, BMP, ANEU, GFR #### [address] [address] Electrolyte Balance 7.0 mEq/L Normal 4.0-15.0 [facility] ([place]) Comment on above: Performed By: #### C BC, ADIFF, PRO, BMP, ANEU, GFR #### [address] [address] Globulin 3.1 G/dL Normal 1.5-3.8 [facility] ([place]) Comment on above: Performed By: #### C BC, ADIFF, PRO, BMP, ANEU, GFR #### [address] [address] Glucose [Mass/Vol] 96 mg/dL Normal 70-110 [facility] ([place]) Comment on above: Performed By: #### C BC, ADIFF, PRO, BMP, ANEU, GFR #### [address] [address] Potassium [Moles/Vol] 4.4 mmol/L Normal 3.5-5.0 [facility] ([place]) Comment on above: Performed By: #### C BC, ADIFF, PRO, BMP, ANEU, GFR #### [address] [address] Sodium [Moles/Vol] 136 mmol/L Normal 136-145 [facility] ([place]) Comment on above: Performed By: #### C BC, ADIFF, PRO, BMP, ANEU, GFR #### [place] [phone] Total Protein 5.9 G/dL Normal 5.7-8.2 [facility] ([place]) Comment on above: Result Comment: No te - New Reference Range in effect 20 Performed By: #### C BC, ADIFF, PRO, BMP, ANEU, GFR #### [address] [address] Urea nitrogen [Mass/Vol] 6.0 mg/dL Low 8.0-22.0 [facility] ([place]) Comment on above: Performed By: #### C BC, ADIFF, PRO, BMP, ANEU, GFR #### [address] [address] LABORATORYOrdered By: SYSTEM SYSTEM on 07-15-2023 Albumin [...] 0.7 10^3/mcL Workflow SS Eosinophils/100 WBC (Bld) 7.1 % [...] 27.0 - 33.0 pg Workflow SS MCHC 33.7 G/dL Invalid Interpretation Code 32.0 - 36.0 G/dL AH Workflow SS MCV (RBC) [Entitic vol] 89.9 [...] 5.0 mEq/L AH ADM SS Protein [Mass/Vol] 5.9 G/dL Invalid [...] AH ADM SS Urea nitrogen/Creatinine [Mass ratio] 8.1 ratio Invalid Interpretation Code 10.0 - 22.0 ratio AH ADM SS WBC (Bld) [#/Vol] 7.7 103/mcL Invalid Interpretation Code 4.5 - 10.8 10^3/mcL AH Workflow SS MGon 07-15-2023 Magnesium [Mass/Vol] 2.0 mg/dL Normal 1.6-2.4 [facility] ([place]) Comment on above: Performed By: #### C BC, ADIFF, PRO, BMP, ANEU, GFR #### [address] [address] PHOSon 07-15-2023 Phosphate [Mass/Vol] 5.0 mg/dL Normal 2.4-5.1 [facility] ([place]) Comment on above: Result Comment: No te - New Reference Range in effect 20 Performed By: #### C BC, ADIFF, PRO, BMP, ANEU, GFR #### [place] [address] .Auto Diffon 07-14-2023 Basophil, Absolute 0.1 10 3/mcL Normal 0.0-0.3 [facility] ([place]) Comment on above: Performed By: #### C BC, ADIFF, PRO, BMP, ANEU, GFR #### [place] [address] Basophils/100 WBC (Bld) 0.8 % Normal 0.0-2.5 [facility] ([place]) Comment on above: Performed By: #### C BC, ADIFF, PRO, BMP, ANEU, GFR #### [address] [address] Eosinophil, Absolute 0.5 10 3/mcL Normal 0.0-0.7 [facility] ([place]) Comment on above: Performed By: #### C BC, ADIFF, PRO, BMP, ANEU, GFR #### [address] [address] Eosinophils/100 WBC (Bld) 6.0 % Normal 0.0-6.0 [facility] ([place]) Comment on above: Performed By: #### C BC, ADIFF, PRO, BMP, ANEU, GFR #### [place] [address] Lymphocyte, Absolute 1.6 10 3/mcL Normal 0.9-4.3 [facility] ([place]) Comment on above: Performed By: #### C BC, ADIFF, PRO, BMP, ANEU, GFR #### [address] [address] Lymphocytes/100 WBC (Bld) 21.0 % Normal 20.0-40.0 [facility] ([place]) Comment on above: Performed By: #### C BC, ADIFF, PRO, BMP, ANEU, GFR #### [address] [address] Monocyte, Absolute 1.1 10 3/mcL Normal 0.1-1.4 [facility] ([place]) Comment on above: Performed By: #### C BC, ADIFF, PRO, BMP, ANEU, GFR #### [address] [address] Monocytes/100 WBC (Bld) 14.0 % High 2.0-13.0 [facility] ([place]) Comment on above: Performed By: #### C BC, ADIFF, PRO, BMP, ANEU, GFR #### [address] [address] Neutrophils/100 WBC (Bld) 58.2 % Normal 50.0-75.0 [facility] ([place]) Comment on above: Performed By: #### C BC, ADIFF, PRO, BMP, ANEU, GFR #### [address] [address] .GFRon 07-14-2023 GFR Non- >60 Normal [facility] ([place]) Comment on above: Result Comment: GFR Population [...] 15 mL/min/1.73 square meters Performed By: #### G FR, BMP #### [place] [address] GFR >60 Normal [facility] ([place]) Comment on above: Result Comment: GFR Population [...] 15 mL/min/1.73 square meters Performed By: #### G FR, BMP #### [place] [address] .NEUABSon 07-14-2023 Neutrophil, Absolute 4.5 10 3/mcL Normal 2.3-8.1 [facility] ([place]) Comment on above: Performed By: #### C BC, ADIFF, PRO, BMP, ANEU, GFR #### [place] [phone] CBCon 07-14-2023 Erythrocyte distribution width (RBC) [Ratio] 15.4 % Normal 11.5-15.5 [facility] ([place]) Comment on above: Performed By: #### C BC, ADIFF, PRO, BMP, ANEU, GFR #### [place] [address] Hematocrit (Bld) [Volume fraction] 36.1 % Normal 34.0-46.0 [facility] ([place]) Comment on above: Performed By: #### C BC, ADIFF, PRO, BMP, ANEU, GFR #### [place] [address] Hgb 12.0 G/dL Normal 12.0-16.0 [facility] ([place]) Comment on above: Performed By: #### C BC, ADIFF, PRO, BMP, ANEU, GFR #### [place] [address] MCH (RBC) [Entitic mass] 29.8 pg Normal 27.0-33.0 [facility] ([place]) Comment on above: Performed By: #### C BC, ADIFF, PRO, BMP, ANEU, GFR #### [place] [address] MCHC 33.3 G/dL Normal 32.0-36.0 [facility] ([place]) Comment on above: Performed By: #### C BC, ADIFF, PRO, BMP, ANEU, GFR #### [place] [address] MCV (RBC) [Entitic vol] 89.6 fL Normal 80.0-99.0 [facility] ([place]) Comment on above: Performed By: #### C BC, ADIFF, PRO, BMP, ANEU, GFR #### [place] [address] Platelet 299 10 3/mcL Normal 150-450 [facility] ([place]) Comment on above: Performed By: #### C BC, ADIFF, PRO, BMP, ANEU, GFR #### [place] [address] Platelet mean volume (Bld) [Entitic vol] 7.7 fL Normal 6.6-10.5 [facility] ([place]) Comment on above: Performed By: #### C BC, ADIFF, PRO, BMP, ANEU, GFR #### [place] [address] RBC 4.03 10 6/mcL Low 4.10-5.30 [facility] ([place]) Comment on above: Performed By: #### C BC, ADIFF, PRO, BMP, ANEU, GFR #### [place] [address] WBC 7.7 10 3/mcL Normal 4.5-10.8 [facility] ([place]) Comment on above: Performed By: #### C BC, ADIFF, PRO, BMP, ANEU, GFR #### [place] [address] CMPon 07-14-2023 BUN/Creatinine Ratio Unable to Calculate Normal 10.0-2 2.0 [facility] ([place]) Comment on above: Result Comment: Unab le to calculate this test result accurately. Results used to calculate this test are outside the reportable range. Performed By: #### Deondre VALDES, BMP #### [address] [address] Urea nitrogen [Mass/Vol] mg/dL Low 8.0-22.0 [facility] ([place]) Comment on above: Performed By: #### Deondre VALDES, BMP #### [place] [address] Albumin Level 2.8 G/dL Low 3.2-4.8 [facility] ([place]) Comment on above: Performed By: #### Deondre VALDES, BMP #### [place] [address] Albumin/Globulin [Mass ratio] 0.9 {ratio} Normal 0.9-1.6 [facility] ([place]) Comment on above: Performed By: #### Deondre VALDES, BMP #### [address] [address] ALP [Catalytic activity/Vol] 84 U/L Normal 38-126 [facility] ([place]) Comment on above: Performed By: #### Deondre VALDES, BMP #### [place] [phone] ALT/SGPT <8 Low 10-49 [facility] ([place]) Comment on above: Performed By: #### Deondre VALDES, BMP #### [place] [phone] AST [Catalytic activity/Vol] 11 U/L Normal 8-34 [facility] ([place]) Comment on above: Performed By: #### Deondre VALDES, BMP #### [place] [phone] Bili Total 0.30 mg/dL Normal 0.20-1.20 [facility] ([place]) Comment on above: Result Comment: Use of this assay is not recommended for patients undergoing treatment with eltrombopag due to the potential for falsely elevated results. Performed By: #### Deondre VALDES, BMP #### [address] [address] Calcium [Mass/Vol] 9.2 mg/dL Normal 8.7-10.4 [facility] ([place]) Comment on above: Performed By: #### Deondre VALDES, BMP #### [address] [address] Chloride [Moles/Vol] 105 mmol/L Normal 98-110 [facility] ([place]) Comment on above: Performed By: #### Deondre VALDES, BMP #### [address] [address] CO2 [Moles/Vol] 26 mmol/L Normal 22-32 [facility] ([place]) Comment on above: Performed By: #### Deondre VALDES, BMP #### [address] [address] Creatinine [Mass/Vol] 0.69 mg/dL Normal 0.50-1.20 [facility] ([place]) Comment on above: Performed By: #### Deondre VALDES, BMP #### [address] [address] Electrolyte Balance 8.0 mEq/L Normal 4.0-15.0 [facility] ([place]) Comment on above: Performed By: #### Deondre VALDES, BMP #### [address] [address] Globulin 3.1 G/dL Normal 1.5-3.8 [facility] ([place]) Comment on above: Performed By: #### Deondre VALDES, BMP #### [address] [address] Glucose [Mass/Vol] 86 mg/dL Normal 70-110 [facility] ([place]) Comment on above: Performed By: #### Deondre VALDES, BMP #### [address] [address] Potassium [Moles/Vol] 4.3 mmol/L Normal 3.5-5.0 [facility] ([place]) Comment on above: Performed By: #### Deondre VALDES, BMP #### [address] [address] Sodium [Moles/Vol] 139 mmol/L Normal 136-145 [facility] ([place]) Comment on above: Performed By: #### G , ZENOBIA #### [address] [address] Total Protein 5.9 G/dL Normal 5.7-8.2 [facility] ([place]) Comment on above: Result Comment: No te - New Reference Range in effect 20 Performed By: #### G , ZENOBIA #### [address] [address] LABORATORYOrdered By: SYSTEM SYSTEM on 07-14-2023 Albumin BCP dye [Mass/Vol] 2.8 G/dL Invalid Interpretation Code 3.2 - 4.8 G/dL AH ADM SS Albumin/Globulin [Mass ratio] 0.9 {ratio} Invalid Interpretation Code 0.9 - 1.6 ratio AH ADM SS ALP [Catalytic activity/Vol] 84 U/L [...] 10^3/mcL AH Workflow SS Basophils/100 WBC (Bld) 0.8 % [...] 110 mEq/L AH ADM SS CO2 [Moles/Vol] 26 mmol/L Invalid Interpretation Code 22 - 32 mEq/L AH ADM SS Creatinine [Mass/Vol] 0.69 mg/dL Invalid Interpretation Code 0.50 - 1.20 mg/dL AH ADM SS Electrolyte Balance 8.0 mEq/L Invalid Interpretation Code 4.0 - 15.0 mEq/L AH ADM SS Eosinophils (Bld) [#/Vol] 0.5 103/mcL Invalid Interpretation Code 0.0 - 0.7 10^3/mcL AH Workflow SS Eosinophils/100 WBC (Bld) 6.0 % Invalid Interpretation Code 0.0 - 6.0 % Workflow SS Erythrocyte distribution width (RBC) [Ratio] 15.4 % Invalid Interpretation Code 11.5 - 15.5 % Workflow SS GFR/1.73 sq M.predicted among blacks MDRD (S/P/Bld) [Vol rate/Area] ml/min/1.73sqm Invalid Interpretation Code [facility] S Comment on above: Interpretive Data: [...] (S/P/Bld) [Vol rate/Area] ml/min/1.73sqm Invalid Interpretation Code [facility] Comment on above: Interpretive Data: [...] G/dL Workflow SS MCV (RBC) [Entitic vol] 89.6 [...] 10.5 fL Workflow SS Platelets (Bld) [#/Vol] 299 103/mcL Invalid Interpretation Code 150 - 450 10^3/mcL AH Workflow SS Potassium [Moles/Vol] 4.3 mmol/L Invalid Interpretation Code 3.5 - 5.0 mEq/L AH ADM SS Protein [Mass/Vol] 5.9 G/dL Invalid Interpretation Code 5.7 - 8.2 G/dL AH ADM SS Comment on above: Interpretive Data: * *Note - New Reference Range in effect 20 RBC (Bld) [#/Vol] 4.03 106/mcL Invalid Interpretation Code 4.10 - 5.30 10^6/mcL AH Workflow SS Sodium [Moles/Vol] 139 mmol/L Invalid Interpretation Code 136 - 145 mEq/L AH ADM SS WBC (Bld) [#/Vol] 7.7 [...] 07-14-2023 Magnesium [Mass/Vol] 2.0 mg/dL Normal 1.6-2.4 [facility] ([place]) Comment on above: Performed By: #### C BC, ADIFF, PRO, BMP, ANEU, GFR #### [address] [address] PHOSon 07-14-2023 Phosphate [Mass/Vol] 5.3 mg/dL High 2.4-5.1 [facility] ([place]) Comment on above: Result Comment: No te - New Reference Range in effect 20 Performed By: #### C BC, ADIFF, PRO, BMP, ANEU, GFR #### [address] [address] .Auto Diffon 07-13-2023 Basophil, Absolute 0.1 10 3/mcL Normal 0.0-0.3 [facility] ([place]) Comment on above: Performed By: #### C BC, ADIFF, PRO, BMP, ANEU, GFR #### [address] [address] Basophils/100 WBC (Bld) 1.2 % Normal 0.0-2.5 A [facility] ([place]) Comment on above: Performed By: #### C BC, ADIFF, PRO, BMP, ANEU, GFR #### [address] [address] Eosinophil, Absolute 0.5 10 3/mcL Normal 0.0-0.7 [facility] ([place]) Comment on above: Performed By: #### C BC, ADIFF, PRO, BMP, ANEU, GFR #### [address] [address] Eosinophils/100 WBC (Bld) 5.6 % Normal 0.0-6.0 [facility] ([place]) Comment on above: Performed By: #### C BC, ADIFF, PRO, BMP, ANEU, GFR #### [address] [address] Lymphocyte, Absolute 1.5 10 3/mcL Normal 0.9-4.3 [facility] ([place]) Comment on above: Performed By: #### C BC, ADIFF, PRO, BMP, ANEU, GFR #### [address] [address] Lymphocytes/100 WBC (Bld) 18.4 % Low 20.0-40.0 [facility] ([place]) Comment on above: Performed By: #### C BC, ADIFF, PRO, BMP, ANEU, GFR #### [address] [address] Monocyte, Absolute 0.8 10 3/mcL Normal 0.1-1.4 [facility] ([place]) Comment on above: Performed By: #### C BC, ADIFF, PRO, BMP, ANEU, GFR #### [address] [address] Monocytes/100 WBC (Bld) 10.2 % Normal 2.0-13.0 [facility] ([place]) Comment on above: Performed By: #### C BC, ADIFF, PRO, BMP, ANEU, GFR #### [address] [address] Neutrophils/100 WBC (Bld) 64.6 % Normal 50.0-75.0 [facility] ([place]) Comment on above: Performed By: #### C BC, ADIFF, PRO, BMP, ANEU, GFR #### [address] [address] .GFRon 07-13-2023 GFR >60 Normal [facility] ([place]) Comment on above: Result Comment: GFR Population [...] BC, ADIFF, PRO, BMP, ANEU, GFR #### [address] [address] GFR Non- >60 Normal [facility] ([place]) Comment on above: Result Comment: GFR Population [...] BC, ADIFF, PRO, BMP, ANEU, GFR #### [place] [address] .NEUABSon 07-13-2023 Neutrophil, Absolute 5.2 10 3/mcL Normal 2.3-8.1 [facility] ([place]) Comment on above: Performed By: #### C BC, ADIFF, PRO, BMP, ANEU, GFR #### [place] [address] CBCon 07-13-2023 Erythrocyte distribution width (RBC) [Ratio] 15.3 % Normal 11.5-15.5 [facility] ([place]) Comment on above: Performed By: #### C BC, ADIFF, PRO, BMP, ANEU, GFR #### [place] [address] Hematocrit (Bld) [Volume fraction] 35.2 % Normal 34.0-46.0 [facility] ([place]) Comment on above: Performed By: #### C BC, ADIFF, PRO, BMP, ANEU, GFR #### [place] [address] Hgb 11.5 G/dL Low 12.0-16.0 [facility] ([place]) Comment on above: Performed By: #### C BC, ADIFF, PRO, BMP, ANEU, GFR #### [place] [address] MCH (RBC) [Entitic mass] 29.5 pg Normal 27.0-33.0 [facility] ([place]) Comment on above: Performed By: #### C BC, ADIFF, PRO, BMP, ANEU, GFR #### [place] [address] MCHC 32.6 G/dL Normal 32.0-36.0 [facility] ([place]) Comment on above: Performed By: #### C BC, ADIFF, PRO, BMP, ANEU, GFR #### [place] [address] MCV (RBC) [Entitic vol] 90.5 fL Normal 80.0-99.0 [facility] ([place]) Comment on above: Performed By: #### C BC, ADIFF, PRO, BMP, ANEU, GFR #### [place] [address] Platelet 295 10 3/mcL Normal 150-450 [facility] ([place]) Comment on above: Performed By: #### C BC, ADIFF, PRO, BMP, ANEU, GFR #### [place] [address] Platelet mean volume (Bld) [Entitic vol] 7.8 fL Normal 6.6-10.5 [facility] ([place]) Comment on above: Performed By: #### C BC, ADIFF, PRO, BMP, ANEU, GFR #### [place] [id number] RBC 3.89 10 6/mcL Low 4.10-5.30 [facility] ([place]) Comment on above: Performed By: #### C BC, ADIFF, PRO, BMP, ANEU, GFR #### [place] [address] WBC 8.1 10 3/mcL Normal 4.5-10.8 [facility] ([place]) Comment on above: Performed By: #### C BC, ADIFF, PRO, BMP, ANEU, GFR #### [place] [address] CMPon 07-13-2023 BUN/Creatinine Ratio Unable to Calculate Normal 10.0-2 2.0 [facility] ([place]) Comment on above: Result Comment: Unab le to calculate this test result accurately. Results used to calculate this test are outside the reportable range. Performed By: #### C BC, ADIFF, PRO, BMP, ANEU, GFR #### [place] [address] Urea nitrogen [Mass/Vol] mg/dL Low 8.0-22.0 [facility] ([place]) Comment on above: Performed By: #### C BC, ADIFF, PRO, BMP, ANEU, GFR #### [place] [address] Albumin Level 2.6 G/dL Low 3.2-4.8 [facility] ([place]) Comment on above: Performed By: #### C BC, ADIFF, PRO, BMP, ANEU, GFR #### [place] [phone] Albumin/Globulin [Mass ratio] 1.0 {ratio} Normal 0.9-1.6 [facility] ([place]) Comment on above: Performed By: #### C BC, ADIFF, PRO, BMP, ANEU, GFR #### [place] [phone] ALP [Catalytic activity/Vol] 78 U/L Normal 38-126 [facility] ([place]) Comment on above: Performed By: #### C BC, ADIFF, PRO, BMP, ANEU, GFR #### [place] [phone] ALT/SGPT <8 Low 10-49 [facility] ([place]) Comment on above: Performed By: #### C BC, ADIFF, PRO, BMP, ANEU, GFR #### [place] [phone] AST [Catalytic activity/Vol] 9 U/L Normal 8-34 [facility] ([place]) Comment on above: Performed By: #### C BC, ADIFF, PRO, BMP, ANEU, GFR #### [place] [phone] Bili Total 0.20 mg/dL Normal 0.20-1.20 [facility] ([place]) Comment on above: Result Comment: Use of this assay is not recommended for patients undergoing treatment with eltrombopag due to the potential for falsely elevated results. Performed By: #### C BC, ADIFF, PRO, BMP, ANEU, GFR #### [place] [phone] Calcium [Mass/Vol] 8.7 mg/dL Normal 8.7-10.4 [facility] ([place]) Comment on above: Performed By: #### C BC, ADIFF, PRO, BMP, ANEU, GFR #### [place] [phone] Chloride [Moles/Vol] 107 mmol/L Normal 98-110 [facility] ([place]) Comment on above: Performed By: #### C BC, ADIFF, PRO, BMP, ANEU, GFR #### [address] [address] CO2 [Moles/Vol] 25 mmol/L Normal 22-32 [facility] ([place]) Comment on above: Performed By: #### C BC, ADIFF, PRO, BMP, ANEU, GFR #### [address] [address] Creatinine [Mass/Vol] 0.73 mg/dL Normal 0.50-1.20 [facility] ([place]) Comment on above: Performed By: #### C BC, ADIFF, PRO, BMP, ANEU, GFR #### [address] [address] Electrolyte Balance 7.0 mEq/L Normal 4.0-15.0 [facility] ([place]) Comment on above: Performed By: #### C BC, ADIFF, PRO, BMP, ANEU, GFR #### [address] [address] Globulin 2.7 G/dL Normal 1.5-3.8 [facility] ([place]) Comment on above: Performed By: #### C BC, ADIFF, PRO, BMP, ANEU, GFR #### [address] [address] Glucose [Mass/Vol] 130 mg/dL High 70-110 [facility] ([place]) Comment on above: Performed By: #### C BC, ADIFF, PRO, BMP, ANEU, GFR #### [address] [address] Potassium [Moles/Vol] 3.9 mmol/L Normal 3.5-5.0 [facility] ([place]) Comment on above: Performed By: #### C BC, ADIFF, PRO, BMP, ANEU, GFR #### [address] [address] Sodium [Moles/Vol] 139 mmol/L Normal 136-145 [facility] ([place]) Comment on above: Performed By: #### C BC, ADIFF, PRO, BMP, ANEU, GFR #### [place] [address] Total Protein 5.3 G/dL Low 5.7-8.2 [facility] ([place]) Comment on above: Result Comment: No te - New Reference Range in effect 20 Performed By: #### C BC, ADIFF, PRO, BMP, ANEU, GFR #### [address] [address] MGon 07-13-2023 Magnesium [Mass/Vol] 1.8 mg/dL Normal 1.6-2.4 [facility] ([place]) Comment on above: Performed By: #### C BC, ADIFF, PRO, BMP, ANEU, GFR #### [place] [phone] PHOSon 07-13-2023 Phosphate [Mass/Vol] 4.1 mg/dL Normal 2.4-5.1 [facility] ([place]) Comment on above: Result Comment: No te - New Reference Range in effect 20 Performed By: #### C BC, ADIFF, PRO, BMP, ANEU, GFR #### [address] [address] .Auto Diffon 07-12-2023 Basophil, Absolute 0.1 10 3/mcL Normal 0.0-0.3 [facility] ([place]) Comment on above: Performed By: #### C BC, ADIFF, PRO, BMP, ANEU, GFR #### [place] [phone] Basophils/100 WBC (Bld) 1.1 % Normal 0.0-2.5 A [facility] ([place]) Comment on above: Performed By: #### C BC, ADIFF, PRO, BMP, ANEU, GFR #### [place] [phone] Eosinophil, Absolute 0.6 10 3/mcL Normal 0.0-0.7 [facility] ([place]) Comment on above: Performed By: #### C BC, ADIFF, PRO, BMP, ANEU, GFR #### [address] [address] Eosinophils/100 WBC (Bld) 8.1 % High 0.0-6.0 [facility] ([place]) Comment on above: Performed By: #### C BC, ADIFF, PRO, BMP, ANEU, GFR #### [address] [address] Lymphocyte, Absolute 1.4 10 3/mcL Normal 0.9-4.3 [facility] ([place]) Comment on above: Performed By: #### C BC, ADIFF, PRO, BMP, ANEU, GFR #### [address] [address] Lymphocytes/100 WBC (Bld) 18.4 % Low 20.0-40.0 [facility] ([place]) Comment on above: Performed By: #### C BC, ADIFF, PRO, BMP, ANEU, GFR #### [address] [address] Monocyte, Absolute 0.7 10 3/mcL Normal 0.1-1.4 [facility] ([place]) Comment on above: Performed By: #### C BC, ADIFF, PRO, BMP, ANEU, GFR #### [address] [address] Monocytes/100 WBC (Bld) 9.0 % Normal 2.0-13.0 [facility] ([place]) Comment on above: Performed By: #### C BC, ADIFF, PRO, BMP, ANEU, GFR #### [address] [address] Neutrophils/100 WBC (Bld) 63.4 % Normal 50.0-75.0 [facility] ([place]) Comment on above: Performed By: #### C BC, ADIFF, PRO, BMP, ANEU, GFR #### [address] [address] .GFRon 07-12-2023 GFR >60 Normal [facility] ([place]) Comment on above: Result Comment: GFR [...] BC, ADIFF, PRO, BMP, ANEU, GFR #### [address] [address] GFR Non- >60 Normal [facility] ([place]) Comment on above: Result Comment: GFR Population [...] BC, ADIFF, PRO, BMP, ANEU, GFR #### [address] [address] .NEUABSon 07-12-2023 Neutrophil, Absolute 4.8 10 3/mcL Normal 2.3-8.1 [facility] ([place]) Comment on above: Performed By: #### C BC, ADIFF, PRO, BMP, ANEU, GFR #### [address] [address] CBCon 07-12-2023 Erythrocyte distribution width (RBC) [Ratio] 15.7 % High 11.5-15.5 [facility] ([place]) Comment on above: Performed By: #### C BC, ADIFF, PRO, BMP, ANEU, GFR #### [place] [address] Hematocrit (Bld) [Volume fraction] 35.4 % Normal 34.0-46.0 [facility] ([place]) Comment on above: Performed By: #### C BC, ADIFF, PRO, BMP, ANEU, GFR #### [place] [address] Hgb 11.6 G/dL Low 12.0-16.0 [facility] ([place]) Comment on above: Performed By: #### C BC, ADIFF, PRO, BMP, ANEU, GFR #### [place] [address] MCH (RBC) [Entitic mass] 29.9 pg Normal 27.0-33.0 [facility] ([place]) Comment on above: Performed By: #### C BC, ADIFF, PRO, BMP, ANEU, GFR #### [place] [address] MCHC 32.6 G/dL Normal 32.0-36.0 [facility] ([place]) Comment on above: Performed By: #### C BC, ADIFF, PRO, BMP, ANEU, GFR #### [place] [address] MCV (RBC) [Entitic vol] 91.5 fL Normal 80.0-99.0 [facility] ([place]) Comment on above: Performed By: #### C BC, ADIFF, PRO, BMP, ANEU, GFR #### [place] [id number] Platelet 251 10 3/mcL Normal 150-450 [facility] ([place]) Comment on above: Performed By: #### C BC, ADIFF, PRO, BMP, ANEU, GFR #### [place] [address] Platelet mean volume (Bld) [Entitic vol] 7.6 fL Normal 6.6-10.5 [facility] ([place]) Comment on above: Performed By: #### C BC, ADIFF, PRO, BMP, ANEU, GFR #### [place] [id number] RBC 3.87 10 6/mcL Low 4.10-5.30 [facility] ([place]) Comment on above: Performed By: #### C BC, ADIFF, PRO, BMP, ANEU, GFR #### [place] [address] WBC 7.5 10 3/mcL Normal 4.5-10.8 [facility] ([place]) Comment on above: Performed By: #### C BC, ADIFF, PRO, BMP, ANEU, GFR #### [address] [address] CMPon 07-12-2023 Albumin Level 2.5 G/dL Low 3.2-4.8 [facility] ([place]) Comment on above: Performed By: #### C BC, ADIFF, PRO, BMP, ANEU, GFR #### [place] [address] Albumin/Globulin [Mass ratio] 0.9 {ratio} Normal 0.9-1.6 [facility] ([place]) Comment on above: Performed By: #### C BC, ADIFF, PRO, BMP, ANEU, GFR #### [place] [address] ALP [Catalytic activity/Vol] 78 U/L Normal 38-126 [facility] ([place]) Comment on above: Performed By: #### C BC, ADIFF, PRO, BMP, ANEU, GFR #### [place] [id number] ALT/SGPT <8 Low 10-49 [facility] ([place]) Comment on above: Performed By: #### C BC, ADIFF, PRO, BMP, ANEU, GFR #### [place] [id number] AST [Catalytic activity/Vol] 10 U/L Normal 8-34 [facility] ([place]) Comment on above: Performed By: #### C BC, ADIFF, PRO, BMP, ANEU, GFR #### [place] [id number] Bili Total <0.20 Normal 0.20-1.20 [facility] ([place]) Comment on above: Result Comment: Use of this assay is not recommended for patients undergoing treatment with eltrombopag due to the potential for falsely elevated results. Performed By: #### C BC, ADIFF, PRO, BMP, ANEU, GFR #### [place] [id number] BUN/Creatinine Ratio 10.8 ratio Normal 10.0-22.0 [facility] ([place]) Comment on above: Performed By: #### C BC, ADIFF, PRO, BMP, ANEU, GFR #### [place] [id number] Calcium [Mass/Vol] 8.6 mg/dL Low 8.7-10.4 [facility] ([place]) Comment on above: Performed By: #### C BC, ADIFF, PRO, BMP, ANEU, GFR #### [place] [phone] Chloride [Moles/Vol] 109 mmol/L Normal 98-110 [facility] ([place]) Comment on above: Performed By: #### C BC, ADIFF, PRO, BMP, ANEU, GFR #### [place] [phone] CO2 [Moles/Vol] 23 mmol/L Normal 22-32 [facility] ([place]) Comment on above: Performed By: #### C BC, ADIFF, PRO, BMP, ANEU, GFR #### [place] [phone] Creatinine [Mass/Vol] 0.74 mg/dL Normal 0.50-1.20 [facility] ([place]) Comment on above: Performed By: #### C BC, ADIFF, PRO, BMP, ANEU, GFR #### [place] [phone] Electrolyte Balance 9.0 mEq/L Normal 4.0-15.0 [facility] ([place]) Comment on above: Performed By: #### C BC, ADIFF, PRO, BMP, ANEU, GFR #### [place] [phone] Globulin 2.7 G/dL Normal 1.5-3.8 [facility] ([place]) Comment on above: Performed By: #### C BC, ADIFF, PRO, BMP, ANEU, GFR #### [address] [address] Glucose [Mass/Vol] 86 mg/dL Normal 70-110 [facility] ([place]) Comment on above: Performed By: #### C BC, ADIFF, PRO, BMP, ANEU, GFR #### [place] [phone] Potassium [Moles/Vol] 4.4 mmol/L Normal 3.5-5.0 [facility] ([place]) Comment on above: Performed By: #### C BC, ADIFF, PRO, BMP, ANEU, GFR #### [place] [phone] Sodium [Moles/Vol] 141 mmol/L Normal 136-145 [facility] ([place]) Comment on above: Performed By: #### C BC, ADIFF, PRO, BMP, ANEU, GFR #### [place] [id number] Total Protein 5.2 G/dL Low 5.7-8.2 [facility] ([place]) Comment on above: Result Comment: No te - New Reference Range in effect 20 Performed By: #### C BC, ADIFF, PRO, BMP, ANEU, GFR #### [place] [phone] Urea nitrogen [Mass/Vol] 8.0 mg/dL Normal 8.0-22.0 [facility] ([place]) Comment on above: Performed By: #### C BC, ADIFF, PRO, BMP, ANEU, GFR #### [place] [id number] MGon 07-12-2023 Magnesium [Mass/Vol] 2.0 mg/dL Normal 1.6-2.4 [facility] ([place]) Comment on above: Performed By: #### C BC, ADIFF, PRO, BMP, ANEU, GFR #### [address] [address] PHOSon 07-12-2023 Phosphate [Mass/Vol] 4.1 mg/dL Normal 2.4-5.1 [facility] ([place]) Comment on above: Result Comment: No te - New Reference Range in effect 20 Performed By: #### C BC, ADIFF, PRO, BMP, ANEU, GFR #### [address] [address] .Auto Diffon 07-11-2023 Basophil, Absolute 0.1 10 3/mcL Normal 0.0-0.3 [facility] ([place]) Comment on above: Performed By: #### C BC, ADIFF, PRO, BMP, ANEU, GFR #### [address] [address] Basophils/100 WBC (Bld) 0.8 % Normal 0.0-2.5 [facility] ([place]) Comment on above: Performed By: #### C BC, ADIFF, PRO, BMP, ANEU, GFR #### [address] [address] Eosinophil, Absolute 0.6 10 3/mcL Normal 0.0-0.7 [facility] ([place]) Comment on above: Performed By: #### C BC, ADIFF, PRO, BMP, ANEU, GFR #### [address] [address] Eosinophils/100 WBC (Bld) 5.9 % Normal 0.0-6.0 [facility] ([place]) Comment on above: Performed By: #### C BC, ADIFF, PRO, BMP, ANEU, GFR #### [address] [address] Lymphocyte, Absolute 1.3 10 3/mcL Normal 0.9-4.3 [facility] ([place]) Comment on above: Performed By: #### C BC, ADIFF, PRO, BMP, ANEU, GFR #### [address] [address] Lymphocytes/100 WBC (Bld) 12.3 % Low 20.0-40.0 [facility] ([place]) Comment on above: Performed By: #### C BC, ADIFF, PRO, BMP, ANEU, GFR #### [place] [id number] [address] [place] [address] Monocyte, Absolute 1.2 10 3/mcL Normal 0.1-1.4 [facility] ([place]) Comment on above: Performed By: #### C BC, ADIFF, PRO, BMP, ANEU, GFR #### [address] [address] Monocytes/100 WBC (Bld) 11.5 % Normal 2.0-13.0 [facility] ([place]) Comment on above: Performed By: #### C BC, ADIFF, PRO, BMP, ANEU, GFR #### [address] [address] Neutrophils/100 WBC (Bld) 69.5 % Normal 50.0-75.0 [facility] ([place]) Comment on above: Performed By: #### C BC, ADIFF, PRO, BMP, ANEU, GFR #### [address] [address] .GFRon 07-11-2023 GFR Non- >60 Normal [facility] ([place]) Comment on above: Result Comment: GFR Population [...] BC, ADIFF, PRO, BMP, ANEU, GFR #### [address] [address] GFR >60 Normal [facility] ([place]) Comment on above: Result Comment: GFR Population [...] BC, ADIFF, PRO, BMP, ANEU, GFR #### [address] [address] .NEUABSon 07-11-2023 Neutrophil, Absolute 7.1 10 3/mcL Normal 2.3-8.1 [facility] ([place]) Comment on above: Performed By: #### C BC, ADIFF, PRO, BMP, ANEU, GFR #### [address] [address] CBCon 07-11-2023 Erythrocyte distribution width (RBC) [Ratio] 15.7 % High 11.5-15.5 [facility] ([place]) Comment on above: Performed By: #### C BC, ADIFF, PRO, BMP, ANEU, GFR #### [place] [address] Hematocrit (Bld) [Volume fraction] 37.2 % Normal 34.0-46.0 [facility] ([place]) Comment on above: Performed By: #### C BC, ADIFF, PRO, BMP, ANEU, GFR #### [address] [address] Hgb 12.2 G/dL Normal 12.0-16.0 [facility] ([place]) Comment on above: Performed By: #### C BC, ADIFF, PRO, BMP, ANEU, GFR #### [address] [address] MCH (RBC) [Entitic mass] 29.9 pg Normal 27.0-33.0 [facility] ([place]) Comment on above: Performed By: #### C BC, ADIFF, PRO, BMP, ANEU, GFR #### [place] [address] MCHC 32.9 G/dL Normal 32.0-36.0 [facility] ([place]) Comment on above: Performed By: #### C BC, ADIFF, PRO, BMP, ANEU, GFR #### [place] [address] MCV (RBC) [Entitic vol] 90.8 fL Normal 80.0-99.0 [facility] ([place]) Comment on above: Performed By: #### C BC, ADIFF, PRO, BMP, ANEU, GFR #### [place] [address] Platelet 226 10 3/mcL Normal 150-450 [facility] ([place]) Comment on above: Performed By: #### C BC, ADIFF, PRO, BMP, ANEU, GFR #### [place] [address] Platelet mean volume (Bld) [Entitic vol] 7.6 fL Normal 6.6-10.5 [facility] ([place]) Comment on above: Performed By: #### C BC, ADIFF, PRO, BMP, ANEU, GFR #### [place] [id number] RBC 4.10 10 6/mcL Normal 4.10-5.30 [facility] ([place]) Comment on above: Performed By: #### C BC, ADIFF, PRO, BMP, ANEU, GFR #### [place] [id number] WBC 10.3 10 3/mcL Normal 4.5-10.8 [facility] ([place]) Comment on above: Performed By: #### C BC, ADIFF, PRO, BMP, ANEU, GFR #### [place] [address] CMPon 07-11-2023 Albumin Level 2.7 G/dL Low 3.2-4.8 [facility] ([place]) Comment on above: Performed By: #### C BC, ADIFF, PRO, BMP, ANEU, GFR #### [place] [phone] Albumin/Globulin [Mass ratio] 1.0 {ratio} Normal 0.9-1.6 [facility] ([place]) Comment on above: Performed By: #### C BC, ADIFF, PRO, BMP, ANEU, GFR #### [place] [phone] ALP [Catalytic activity/Vol] 85 U/L Normal 38-126 [facility] ([place]) Comment on above: Performed By: #### C BC, ADIFF, PRO, BMP, ANEU, GFR #### [place] [id number] ALT/SGPT <8 Low 10-49 [facility] ([place]) Comment on above: Performed By: #### C BC, ADIFF, PRO, BMP, ANEU, GFR #### [place] [address] AST [Catalytic activity/Vol] 12 U/L Normal 8-34 [facility] ([place]) Comment on above: Performed By: #### C BC, ADIFF, PRO, BMP, ANEU, GFR #### [place] [id number] Bili Total 0.20 mg/dL Normal 0.20-1.20 [facility] ([place]) Comment on above: Result Comment: Use of this assay is not recommended for patients undergoing treatment with eltrombopag due to the potential for falsely elevated results. Performed By: #### C BC, ADIFF, PRO, BMP, ANEU, GFR #### [place] [address] BUN/Creatinine Ratio 8.3 ratio Low 10.0-22.0 [facility] ([place]) Comment on above: Performed By: #### C BC, ADIFF, PRO, BMP, ANEU, GFR #### [place] [id number] Calcium [Mass/Vol] 8.7 mg/dL Normal 8.7-10.4 [facility] ([place]) Comment on above: Performed By: #### C BC, ADIFF, PRO, BMP, ANEU, GFR #### [place] [id number] Chloride [Moles/Vol] 107 mmol/L Normal 98-110 [facility] ([place]) Comment on above: Performed By: #### C BC, ADIFF, PRO, BMP, ANEU, GFR #### [place] [address] CO2 [Moles/Vol] 24 mmol/L Normal 22-32 [facility] ([place]) Comment on above: Performed By: #### C BC, ADIFF, PRO, BMP, ANEU, GFR #### [place] [address] Creatinine [Mass/Vol] 0.84 mg/dL Normal 0.50-1.20 [facility] ([place]) Comment on above: Performed By: #### C BC, ADIFF, PRO, BMP, ANEU, GFR #### [place] [address] Electrolyte Balance 7.0 mEq/L Normal 4.0-15.0 [facility] ([place]) Comment on above: Performed By: #### C BC, ADIFF, PRO, BMP, ANEU, GFR #### [place] [address] Globulin 2.7 G/dL Normal 1.5-3.8 [facility] ([place]) Comment on above: Performed By: #### C BC, ADIFF, PRO, BMP, ANEU, GFR #### [place] [phone] Glucose [Mass/Vol] 104 mg/dL Normal 70-110 [facility] ([place]) Comment on above: Performed By: #### C BC, ADIFF, PRO, BMP, ANEU, GFR #### [place] [address] Potassium [Moles/Vol] 4.2 mmol/L Normal 3.5-5.0 [facility] ([place]) Comment on above: Result Comment: Spec imen slightly hemolyzed. Performed By: #### C BC, ADIFF, PRO, BMP, ANEU, GFR #### [place] [address] Sodium [Moles/Vol] 138 mmol/L Normal 136-145 [facility]ly [facility] ([place]) Comment on above: Performed By: #### C BC, ADIFF, PRO, BMP, ANEU, GFR #### [address] [address] Total Protein 5.4 G/dL Low 5.7-8.2 [facility] ([place]) Comment on above: Result Comment: No te - New Reference Range in effect 20 Performed By: #### C BC, ADIFF, PRO, BMP, ANEU, GFR #### [address] [address] Urea nitrogen [Mass/Vol] 7.0 mg/dL Low 8.0-22.0 [facility] ([place]) Comment on above: Performed By: #### C BC, ADIFF, PRO, BMP, ANEU, GFR #### [address] [address] MGon 07-11-2023 Magnesium [Mass/Vol] 2.1 mg/dL Normal 1.6-2.4 [facility] ([place]) Comment on above: Performed By: #### C BC, ADIFF, PRO, BMP, ANEU, GFR #### [address] [address] PHOSon 07-11-2023 Phosphate [Mass/Vol] 3.4 mg/dL Normal 2.4-5.1 [facility] ([place]) Comment on above: Result Comment: No te - New Reference Range in effect 20 Performed By: #### C BC, ADIFF, PRO, BMP, ANEU, GFR #### [address] [address] .Auto Diffon 07-10-2023 Basophil, Absolute 0.0 10 3/mcL Normal 0.0-0.3 [facility] ([place]) Comment on above: Performed By: #### U OXYS, DRUGU #### [address] [address] Basophils/100 WBC (Bld) 0.3 % Normal 0.0-2.5 [facility] ([place]) Comment on above: Performed By: #### U OXYS, DRUGU #### [address] [address] Eosinophil, Absolute 0.3 10 3/mcL Normal 0.0-0.7 [facility] ([place]) Comment on above: Performed By: #### U OXYS, DRUGU #### [address] [address] Eosinophils/100 WBC (Bld) 3.5 % Normal 0.0-6.0 [facility] ([place]) Comment on above: Performed By: #### U OXYS, DRUGU #### [address] [address] Lymphocyte, Absolute 0.6 10 3/mcL Low 0.9-4.3 [facility] ([place]) Comment on above: Performed By: #### U OXYS, DRUGU #### [address] [address] Lymphocytes/100 WBC (Bld) 6.8 % Low 20.0-40.0 [facility] ([place]) Comment on above: Performed By: #### U OXYS, DRUGU #### [address] [address] Monocyte, Absolute 0.6 10 3/mcL Normal 0.1-1.4 [facility] ([place]) Comment on above: Performed By: #### U OXYS, DRUGU #### [address] [address] Monocytes/100 WBC (Bld) 7.6 % Normal 2.0-13.0 A [facility] ([place]) Comment on above: Performed By: #### U OXYS, DRUGU #### [address] [address] Neutrophils/100 WBC (Bld) 81.8 % High 50.0-75.0 [facility] ([place]) Comment on above: Performed By: #### U OXYS, DRUGU #### [address] [address] .GFRon 07-10-2023 GFR >60 Normal [facility] ([place]) Comment on above: Result Comment: GFR Population [...] 15 mL/min/1.73 square meters Performed By: #### JAY OZUNA #### [address] [address] GFR Non- >60 Normal [facility] ([place]) Comment on above: Result Comment: GFR Population [...] mL/min/1.73 square meters Performed By: #### U OXYJAY Patterson #### [address] [address] .NEUABSon 07-10-2023 Neutrophil, Absolute 6.7 10 3/mcL Normal 2.3-8.1 [facility] ([place]) Comment on above: Performed By: #### U DAMIÁN CAMPBELLU #### [address] [address] CBCon 07-10-2023 Erythrocyte distribution width (RBC) [Ratio] 16.6 % High 11.5-15.5 [facility] ([place]) Comment on above: Performed By: #### U OXYS, DRUGU #### [address] [address] Hematocrit (Bld) [Volume fraction] 35.0 % Normal 34.0-46.0 [facility] ([place]) Comment on above: Performed By: #### U OXYS, DRUGU #### [address] [address] Hgb 10.4 G/dL Low 12.0-16.0 [facility] ([place]) Comment on above: Performed By: #### U OXYS, DRUGU #### [address] [address] MCH (RBC) [Entitic mass] 29.8 pg Normal 27.0-33.0 [facility] ([place]) Comment on above: Performed By: #### U OXYS, DRUGU #### [address] [address] MCHC 29.6 G/dL Low 32.0-36.0 [facility] ([place]) Comment on above: Performed By: #### U OXYS, DRUGU #### [address] [address] MCV (RBC) [Entitic vol] 100.6 fL High 80.0-99.0 A [facility] ([place]) Comment on above: Performed By: #### U OXYS, DRUGU #### [address] [address] Platelet 220 10 3/mcL Normal 150-450 [facility] ([place]) Comment on above: Performed By: #### U OXYS, DRUGU #### [address] [address] Platelet mean volume (Bld) [Entitic vol] 6.8 fL Normal 6.6-10.5 [facility] ([place]) Comment on above: Performed By: #### U OXYS, DRUGU #### [address] [address] RBC 3.48 10 6/mcL Low 4.10-5.30 [facility] ([place]) Comment on above: Performed By: #### U OXYS, DRUGU #### [address] [address] WBC 8.2 10 3/mcL Normal 4.5-10.8 [facility] ([place]) Comment on above: Performed By: #### U OXYS, DRUGU #### [address] [address] CMPon 07-10-2023 Albumin Level 3.1 G/dL Low 3.2-4.8 [facility] ([place]) Comment on above: Order Comment: Conta minated - nurse draw - notified Rocio Pantoja 07/10/2023 06:20:49 EDT Performed By: #### U OXYS, DRUGU #### [address] [address] Albumin/Globulin [Mass ratio] 1.1 {ratio} Normal 0.9-1.6 [facility] ([place]) Comment on above: Order Comment: Conta minated - nurse draw - notified Rocio Pantoja 07/10/2023 06:20:49 EDT Performed By: #### U OXYS, DRUGU #### [address] [address] ALP [Catalytic activity/Vol] 95 U/L Normal 38-126 [facility] ([place]) Comment on above: Order Comment: Conta minated - nurse draw - notified Rocio Pantoja 07/10/2023 06:20:49 EDT Performed By: #### U OXYS, DRUGU #### [address] [address] ALT/SGPT <8 Low 10-49 [facility] ([place]) Comment on above: Order Comment: Conta minated - nurse draw - notified Rocio Pantoja 07/10/2023 06:20:49 EDT Performed By: #### U OXYS, DRUGU #### [address] [address] AST [Catalytic activity/Vol] 15 U/L Normal 8-34 [facility] ([place]) Comment on above: Order Comment: Conta minated - nurse draw - notified Rocio Pantoja 07/10/2023 06:20:49 EDT Performed By: #### U OXYS, DRUGU #### [address] [address] Bili Total 0.30 mg/dL Normal 0.20-1.20 [facility] ([place]) Comment on above: Order Comment: Conta minated - nurse draw - notified Rocio Pantoja 07/10/2023 06:20:49 EDT Result Comment: Use of this assay is not recommended for patients undergoing treatment with eltrombopag due to the potential for falsely elevated results. Performed By: #### U OXYS, DRUGU #### [address] [address] BUN/Creatinine Ratio 6.9 ratio Low 10.0-22.0 [facility] ([place]) Comment on above: Order Comment: Conta minated - nurse draw - notified Rocio Pantoja 07/10/2023 06:20:49 EDT Performed By: #### U OXYS DRUGU #### [address] [address] Calcium [Mass/Vol] 8.8 mg/dL Normal 8.7-10.4 [facility] ([place]) Comment on above: Order Comment: Conta minated - nurse draw - notified Rocio Pantoja 07/10/2023 06:20:49 EDT Performed By: #### U OXYS DRUGU #### [address] [address] Chloride [Moles/Vol] 106 mmol/L Normal 98-110 [facility] ([place]) Comment on above: Order Comment: Conta minated - nurse draw - notified Rocio Pantoja 07/10/2023 06:20:49 EDT Performed By: #### U OXYS, DRUGU #### [address] [address] CO2 [Moles/Vol] 20 mmol/L Low 22-32 [facility] ([place]) Comment on above: Order Comment: Conta minated - nurse draw - notified Rocio Pantoja 07/10/2023 06:20:49 EDT Performed By: #### U OXYS, DRUGU #### [address] [address] Creatinine [Mass/Vol] 0.87 mg/dL Normal 0.50-1.20 [facility] ([place]) Comment on above: Order Comment: Conta minated - nurse draw - notified Rocio Pantoja 07/10/2023 06:20:49 EDT Performed By: #### U OXYS, DRUGU #### [address] [address] Electrolyte Balance 10.0 mEq/L Normal 4.0-15.0 [facility] ([place]) Comment on above: Order Comment: Conta minated - nurse draw - notified Rocio Pantoja 07/10/2023 06:20:49 EDT Performed By: #### U OXYS, DRUGU #### [place] [address] Globulin 2.8 G/dL Normal 1.5-3.8 [facility] ([place]) Comment on above: Order Comment: Conta minated - nurse draw - notified Rocio Pantoja 07/10/2023 06:20:49 EDT Performed By: #### U OXYYesenia DRUGU #### [place] [id number] Glucose [Mass/Vol] 95 mg/dL Normal 70-110 [facility] ([place]) Comment on above: Order Comment: Conta minated - nurse draw - notified Rocio Pantoja 07/10/2023 06:20:49 EDT Performed By: #### U OXYS, DRUGU #### [address] [address] Potassium [Moles/Vol] 4.0 mmol/L Normal 3.5-5.0 [facility] ([place]) Comment on above: Order Comment: Conta minated - nurse draw - notified Rocio Pantoja 07/10/2023 06:20:49 EDT Performed By: #### U OXYS, DRUGU #### [address] [address] Sodium [Moles/Vol] 136 mmol/L Normal 136-145 [facility] ([place]) Comment on above: Order Comment: Conta minated - nurse draw - notified Rocio Pantoja 07/10/2023 06:20:49 EDT Performed By: #### U OXYS, DRUGU #### [address] [address] Total Protein 5.9 G/dL Normal 5.7-8.2 [facility] ([place]) Comment on above: Order Comment: Conta minated - nurse draw - notified Rocio Pantoja 07/10/2023 06:20:49 EDT Result Comment: No te - New Reference Range in effect 20 Performed By: #### U OXYS DRUGU #### [address] [address] Urea nitrogen [Mass/Vol] 6.0 mg/dL Low 8.0-22.0 [facility] ([place]) Comment on above: Order Comment: Conta minated - nurse draw - notified Rocio Pantoja 07/10/2023 06:20:49 EDT Performed By: #### U OXYS, DRUGU #### [place] [address] MGon 07-10-2023 Magnesium [Mass/Vol] 1.8 mg/dL Normal 1.6-2.4 [facility] ([place]) Comment on above: Performed By: #### U OXYS DRUGU #### [place] [id number] PHOSon 07-10-2023 Phosphate [Mass/Vol] 3.2 mg/dL Normal 2.4-5.1 [facility] ([place]) Comment on above: Result Comment: No te - New Reference Range in effect 20 Performed By: #### U OXYS, DRUGU #### [address] [address] .Auto Diffon 07-09-2023 Basophil, Absolute 0.1 10 3/mcL Normal 0.0-0.3 [facility] ([place]) Comment on above: Performed By: #### C BC, ADIFF, PRO, BMP, ANEU, GFR #### [address] [address] Basophils/100 WBC (Bld) 1.2 % Normal 0.0-2.5 A [facility] ([place]) Comment on above: Performed By: #### C BC, ADIFF, PRO, BMP, ANEU, GFR #### [address] [address] Eosinophil, Absolute 0.3 10 3/mcL Normal 0.0-0.7 [facility] ([place]) Comment on above: Performed By: #### C BC, ADIFF, PRO, BMP, ANEU, GFR #### [address] [address] Eosinophils/100 WBC (Bld) 4.0 % Normal 0.0-6.0 [facility] ([place]) Comment on above: Performed By: #### C BC, ADIFF, PRO, BMP, ANEU, GFR #### [address] [address] Lymphocyte, Absolute 2.5 10 3/mcL Normal 0.9-4.3 [facility] ([place]) Comment on above: Performed By: #### C BC, ADIFF, PRO, BMP, ANEU, GFR #### [address] [address] Lymphocytes/100 WBC (Bld) 29.3 % Normal 20.0-40.0 [facility] ([place]) Comment on above: Performed By: #### C BC, ADIFF, PRO, BMP, ANEU, GFR #### [address] [address] Monocyte, Absolute 0.7 10 3/mcL Normal 0.1-1.4 [facility] ([place]) Comment on above: Performed By: #### C BC, ADIFF, PRO, BMP, ANEU, GFR #### [address] [address] Monocytes/100 WBC (Bld) 7.9 % Normal 2.0-13.0 A [facility] ([place]) Comment on above: Performed By: #### C BC, ADIFF, PRO, BMP, ANEU, GFR #### [address] [address] Neutrophils/100 WBC (Bld) 57.6 % Normal 50.0-75.0 [facility] ([place]) Comment on above: Performed By: #### C BC, ADIFF, PRO, BMP, ANEU, GFR #### [address] [address] .GFRon 07-09-2023 GFR >60 Normal [facility] ([place]) Comment on above: Result Comment: GFR Population [...] BC, ADIFF, PRO, BMP, ANEU, GFR #### [address] [address] GFR Non- >60 Normal [facility] ([place]) Comment on above: Result Comment: GFR Population [...] BC, ADIFF, PRO, BMP, ANEU, GFR #### [address] [address] .MDWon 07-09-2023 Monocyte Distribution Width 15.99 Normal 0.00-20.00 [facility] ([place]) Comment on above: Result Comment: For ED adult patients suspected of sepsis, MDW<=20.0 does not rule out sepsis or risk of sepsis Performed By: #### C BC, ADIFF, PRO, BMP, ANEU, GFR #### [address] [address] .NEUABSon 07-09-2023 Neutrophil, Absolute 4.9 10 3/mcL Normal 2.3-8.1 [facility] ([place]) Comment on above: Performed By: #### C BC, ADIFF, PRO, BMP, ANEU, GFR #### [place] [address] ABO/Rh (Gel)on 07-09-2023 ABO/Rh Interp Positive Invalid Interpretation Code [facility] ([place]) Comment on above: Performed By: #### C BC, ADIFF, PRO, BMP, ANEU, GFR #### [place] [address] ABS (Gel)on 07-09-2023 ABSC Interp (Gel) Negative Normal [facility] ([place]) Comment on above: Performed By: #### C BC, ADIFF, PRO, BMP, ANEU, GFR #### [place] [phone] CBCon 07-09-2023 Erythrocyte distribution width (RBC) [Ratio] 16.1 % High 11.5-15.5 [facility] ([place]) Comment on above: Performed By: #### C BC, ADIFF, PRO, BMP, ANEU, GFR #### [place] [address] Hematocrit (Bld) [Volume fraction] 36.4 % Normal 34.0-46.0 [facility] ([place]) Comment on above: Performed By: #### C BC, ADIFF, PRO, BMP, ANEU, GFR #### [place] [address] Hgb 12.0 G/dL Normal 12.0-16.0 [facility] ([place]) Comment on above: Performed By: #### C BC, ADIFF, PRO, BMP, ANEU, GFR #### [place] [address] MCH (RBC) [Entitic mass] 29.8 pg Normal 27.0-33.0 [facility] ([place]) Comment on above: Performed By: #### C BC, ADIFF, PRO, BMP, ANEU, GFR #### [place] [phone] MCHC 33.0 G/dL Normal 32.0-36.0 [facility] ([place]) Comment on above: Performed By: #### C BC, ADIFF, PRO, BMP, ANEU, GFR #### [place] [address] MCV (RBC) [Entitic vol] 90.3 fL Normal 80.0-99.0 A [facility] ([place]) Comment on above: Performed By: #### C BC, ADIFF, PRO, BMP, ANEU, GFR #### [place] [address] Platelet 344 10 3/mcL Normal 150-450 [facility] ([place]) Comment on above: Performed By: #### C BC, ADIFF, PRO, BMP, ANEU, GFR #### [place] [address] Platelet mean volume (Bld) [Entitic vol] 6.9 fL Normal 6.6-10.5 [facility] ([place]) Comment on above: Performed By: #### C BC, ADIFF, PRO, BMP, ANEU, GFR #### [place] [address] RBC 4.03 10 6/mcL Low 4.10-5.30 [facility] ([place]) Comment on above: Performed By: #### C BC, ADIFF, PRO, BMP, ANEU, GFR #### [place] [phone] WBC 8.5 10 3/mcL Normal 4.5-10.8 [facility] ([place]) Comment on above: Performed By: #### C BC, ADIFF, PRO, BMP, ANEU, GFR #### [address] [address] CMPon 07-09-2023 Albumin Level 3.6 G/dL Normal 3.2-4.8 [facility] ([place]) Comment on above: Performed By: #### C BC, ADIFF, PRO, BMP, ANEU, GFR #### [place] [phone] Albumin/Globulin [Mass ratio] 1.3 {ratio} Normal 0.9-1.6 [facility] ([place]) Comment on above: Performed By: #### C BC, ADIFF, PRO, BMP, ANEU, GFR #### [place] [phone] ALP [Catalytic activity/Vol] 87 U/L Normal 38-126 [facility] ([place]) Comment on above: Performed By: #### C BC, ADIFF, PRO, BMP, ANEU, GFR #### [place] [address] ALT/SGPT <8 Low 10-49 [facility] ([place]) Comment on above: Performed By: #### C BC, ADIFF, PRO, BMP, ANEU, GFR #### [place] [address] AST [Catalytic activity/Vol] 12 U/L Normal 8-34 [facility] ([place]) Comment on above: Performed By: #### C BC, ADIFF, PRO, BMP, ANEU, GFR #### [place] [address] Bili Total 0.30 mg/dL Normal 0.20-1.20 [facility] ([place]) Comment on above: Result Comment: Use of this assay is not recommended for patients undergoing treatment with eltrombopag due to the potential for falsely elevated results. Performed By: #### C BC, ADIFF, PRO, BMP, ANEU, GFR #### [place] [address] BUN/Creatinine Ratio 9.3 ratio Low 10.0-22.0 [facility] ([place]) Comment on above: Performed By: #### C BC, ADIFF, PRO, BMP, ANEU, GFR #### [place] [phone] Calcium [Mass/Vol] 8.9 mg/dL Normal 8.7-10.4 [facility] ([place]) Comment on above: Performed By: #### C BC, ADIFF, PRO, BMP, ANEU, GFR #### [place] [phone] Chloride [Moles/Vol] 108 mmol/L Normal 98-110 [facility] ([place]) Comment on above: Performed By: #### C BC, ADIFF, PRO, BMP, ANEU, GFR #### [place] [phone] CO2 [Moles/Vol] 23 mmol/L Normal 22-32 [facility] ([place]) Comment on above: Performed By: #### C BC, ADIFF, PRO, BMP, ANEU, GFR #### [place] [address] Creatinine [Mass/Vol] 0.86 mg/dL Normal 0.50-1.20 [facility] ([place]) Comment on above: Performed By: #### C BC, ADIFF, PRO, BMP, ANEU, GFR #### [place] [address] Electrolyte Balance 8.0 mEq/L Normal 4.0-15.0 [facility] ([place]) Comment on above: Performed By: #### C BC, ADIFF, PRO, BMP, ANEU, GFR #### [place] [phone] Globulin 2.8 G/dL Normal 1.5-3.8 [facility] ([place]) Comment on above: Performed By: #### C BC, ADIFF, PRO, BMP, ANEU, GFR #### [place] [address] Glucose [Mass/Vol] 89 mg/dL Normal 70-110 [facility] ([place]) Comment on above: Performed By: #### C BC, ADIFF, PRO, BMP, ANEU, GFR #### [address] [address] Potassium [Moles/Vol] 3.3 mmol/L Low 3.5-5.0 [facility] ([place]) Comment on above: Performed By: #### C BC, ADIFF, PRO, BMP, ANEU, GFR #### [address] [address] Sodium [Moles/Vol] 139 mmol/L Normal 136-145 [facility] ([place]) Comment on above: Performed By: #### C BC, ADIFF, PRO, BMP, ANEU, GFR #### [address] [address] Total Protein 6.4 G/dL Normal 5.7-8.2 [facility] ([place]) Comment on above: Result Comment: No te - New Reference Range in effect 20 Performed By: #### C BC, ADIFF, PRO, BMP, ANEU, GFR #### [address] [address] Urea nitrogen [Mass/Vol] 8.0 mg/dL Normal 8.0-22.0 [facility] ([place]) Comment on above: Performed By: #### C BC, ADIFF, PRO, BMP, ANEU, GFR #### [address] [address] LABORATORYOrdered By: Emi Dalton on 07-09-2023 Appearance (U) Turbid *ABN* (07/09/23 8:46 PM) Invalid Interpretation Code Clear Auto Urine SS Bacteria LM.HPF (Urine sed) [...] - Microbiology an d Antimicrobial susceptibilityOrdered By: [facility]PROCESSSERBAN[facility] MICRO[facility]OLOG[facility] on 07-09-2023 Bacteria identified Cx Nom (Bld) Culture has been received in lab and is no growth to date. Culture will be held for four weeks. [facility] MGon 07-09-2023 Magnesium [Mass/Vol] 2.0 mg/dL Normal 1.6-2.4 [facility] ([place]) Comment on above: Performed By: #### C BC, ADIFF, PRO, BMP, ANEU, GFR #### [place] [address] No Panel Informationon 07-09 Culture Urine 10,000 - 50,000 cfu/ ml Multiple bacterial morphotypes present. Probable Contamination. Suggest recollection if clinically indicated. [facility] Work Phone: Culture Urine 10,000 - 50,000 cfu/ ml Multiple bacterial morphotypes present. Probable Contamination. Suggest recollection if clinically indicated. [facility] Work Phone: PHOSon 07-09-2023 Phosphate [Mass/Vol] 3.4 mg/dL Normal 2.4-5.1 [facility] ([place]) Comment on above: Result Comment: No te - New Reference Range in effect 20 Performed By: #### C BC, ADIFF, PRO, BMP, ANEU, GFR #### [address] [address] UAon 07-09-2023 Color (U) Red Abnormal [facility] ([place]) Comment on above: Performed By: #### C BC, ADIFF, PRO, BMP, ANEU, GFR #### [place] [address] Glucose (U) [Mass/Vol] Negative Normal Negative [facility] ([place]) Comment on above: Performed By: #### C BC, ADIFF, PRO, BMP, ANEU, GFR #### [address] [address] Ketones Ql (U) Negative Normal Neg-Trace [facility] ([place]) Comment on above: Performed By: #### C BC, ADIFF, PRO, BMP, ANEU, GFR #### [address] [address] UA Appear Turbid Abnormal Clear [facility] ([place]) Comment on above: Performed By: #### C BC, ADIFF, PRO, BMP, ANEU, GFR #### [address] [address] UA Blood Large Abnormal Neg-Trace [facility] ([place]) Comment on above: Performed By: #### C BC, ADIFF, PRO, BMP, ANEU, GFR #### [address] [address] UA Leuk Est Large Abnormal Negative [facility] ([place]) Comment on above: Performed By: #### C BC, ADIFF, PRO, BMP, ANEU, GFR #### [address] [address] UA Nitrite Negative Normal Negative [facility] ([place]) Comment on above: Performed By: #### C BC, ADIFF, PRO, BMP, ANEU, GFR #### [address] [address] UA pH 6.5 Normal 5.0 - 8.0 [facility] ([place]) Comment on above: Performed By: #### C BC, ADIFF, PRO, BMP, ANEU, GFR #### [address] [address] UA Protein >=1000 Abnormal Negative [facility] ([place]) Comment on above: Performed By: #### C BC, ADIFF, PRO, BMP, ANEU, GFR #### [address] [address] UA Spec Grav 1.025 Normal 1.006-1.029 [facility] ([place]) Comment on above: Performed By: #### C BC, ADIFF, PRO, BMP, ANEU, GFR #### [address] [address] UA Specimen Type Catheter Normal [facility] ([place]) Comment on above: Performed By: #### C BC, ADIFF, PRO, BMP, ANEU, GFR #### [address] [address] UA Urobilinogen 1.0 E.U./dL Normal 0.2-1.0 [facility] ([place]) Comment on above: Performed By: #### C BC, ADIFF, PRO, BMP, ANEU, GFR #### [address] [address] Urobilinogen (U) [Mass/Vol] Negative Normal Neg-Trace [facility] ([place]) Comment on above: Performed By: #### C BC, ADIFF, PRO, BMP, ANEU, GFR #### [address] [address] Color (U) Yellow Normal [facility] ([place]) Comment on above: Performed By: #### C BC, ADIFF, PRO, BMP, ANEU, GFR #### [address] [address] Glucose (U) [Mass/Vol] Negative Normal Negative [facility] ([place]) Comment on above: Performed By: #### C BC, ADIFF, PRO, BMP, ANEU, GFR #### [address] [address] Ketones Ql (U) Trace Normal Neg-Trace [facility] ([place]) Comment on above: Performed By: #### C BC, ADIFF, PRO, BMP, ANEU, GFR #### [address] [address] UA Appear Cloudy Abnormal Clear [facility] ([place]) Comment on above: Performed By: #### C BC, ADIFF, PRO, BMP, ANEU, GFR #### [address] [address] UA Blood Moderate Abnormal Neg-Trace [facility] ([place]) Comment on above: Performed By: #### C BC, ADIFF, PRO, BMP, ANEU, GFR #### [address] [address] UA Leuk Est Moderate Abnormal Negative [facility] ([place]) Comment on above: Performed By: #### C BC, ADIFF, PRO, BMP, ANEU, GFR #### [address] [address] UA Nitrite Negative Normal Negative [facility] ([place]) Comment on above: Performed By: #### C BC, ADIFF, PRO, BMP, ANEU, GFR #### [address] [address] UA pH 6.5 Normal 5.0 - 8.0 [facility] ([place]) Comment on above: Performed By: #### C BC, ADIFF, PRO, BMP, ANEU, GFR #### [address] [address] UA Protein 100 mg/dL Abnormal Negative [facility] ([place]) Comment on above: Performed By: #### C BC, ADIFF, PRO, BMP, ANEU, GFR #### [place] [address] UA Spec Grav 1.020 Normal 1.006-1.029 [facility] ([place]) Comment on above: Performed By: #### C BC, ADIFF, PRO, BMP, ANEU, GFR #### [place] [address] UA Specimen Type Catheter Normal [facility] ([place]) Comment on above: Performed By: #### C BC, ADIFF, PRO, BMP, ANEU, GFR #### [place] [address] UA Urobilinogen 0.2 E.U./dL Normal 0.2-1.0 [facility] ([place]) Comment on above: Performed By: #### C BC, ADIFF, PRO, BMP, ANEU, GFR #### [place] [address] Urobilinogen (U) [Mass/Vol] Negative Normal Neg-Trace [facility] ([place]) Comment on above: Performed By: #### C BC, ADIFF, PRO, BMP, ANEU, GFR #### [address] [address] UAMICon 07-09-2023 UA Bacteria 2+ /hpf Abnormal Negative [facility] ([place]) Comment on above: Performed By: #### C BC, ADIFF, PRO, BMP, ANEU, GFR #### [place] [address] UA Mucous 2+ /hpf Normal [facility] ([place]) Comment on above: Performed By: #### C BC, ADIFF, PRO, BMP, ANEU, GFR #### [place] [address] UA RBC LOADED Abnormal 0-2 [facility] ([place]) Comment on above: Performed By: #### C BC, ADIFF, PRO, BMP, ANEU, GFR #### [place] [address] UA Squam Epithelial 5-10 Normal 0-20 [facility] ([place]) Comment on above: Performed By: #### C BC, ADIFF, PRO, BMP, ANEU, GFR #### [address] [address] UA WBC 10-20 Abnormal 0-5 [facility] ([place]) Comment on above: Performed By: #### C BC, ADIFF, PRO, BMP, ANEU, GFR #### [address] [address] UA Crenated RBCs 3-5 Abnormal [facility] ([place]) Comment on above: Performed By: #### C BC, ADIFF, PRO, BMP, ANEU, GFR #### [address] [address] UA Mucous 1+ /hpf Normal [facility] ([place]) Comment on above: Performed By: #### C BC, ADIFF, PRO, BMP, ANEU, GFR #### [address] [address] UA RBC 5-10 Abnormal 0-2 [facility] ([place]) Comment on above: Performed By: #### C BC, ADIFF, PRO, BMP, ANEU, GFR #### [address] [address] UA Squam Epithelial 5-10 Normal 0-20 [facility] ([place]) Comment on above: Performed By: #### C BC, ADIFF, PRO, BMP, ANEU, GFR #### [address] [address] UA WBC 25-50 Abnormal 0-5 [facility] ([place]) Comment on above: Performed By: #### C BC, ADIFF, PRO, BMP, ANEU, GFR #### [place] [address] LABORATORYOrdered By: SYSTEM SYSTEM on 05-07-2023 Albumin [...] 2.5 % AH Workflow SS Bilirubin [Mass/Vol] 0.20 mg/dL Invalid [...] G/dL AH Workflow SS Lymphocytes (Bld) [#/Vol] 1.9 103/mcL Invalid Interpretation Code 0.9 - 4.3 10^3/mcL AH Workflow SS Lymphocytes/100 WBC (Bld) 27.3 % Invalid Interpretation Code 20.0 - 40.0 % AH Workflow SS Magnesium [Mass/Vol] 1.8 mg/dL Invalid Interpretation Code 1.6 - 2.4 mg/dL AH ADM SS MCH (RBC) [Entitic mass] 30.0 pg Invalid Interpretation Code 27.0 - 33.0 pg AH Workflow SS MCHC 32.7 G/dL Invalid Interpretation Code 32.0 - 36.0 G/dL AH Workflow SS MCV (RBC) [Entitic vol] 91.9 fL Invalid Interpretation Code 80.0 - 99.0 fL AH Workflow SS Monocytes (Bld) [#/Vol] 1.1 103/mcL Invalid Interpretation Code 0.1 - 1.4 10^3/mcL AH Workflow SS Monocytes/100 WBC (Bld) 15.5 % Invalid Interpretation Code 2.0 - 13.0 % AH Workflow SS Neutrophils (Bld) [#/Vol] 3.3 103/mcL Invalid Interpretation Code 2.3 - 8.1 10^3/mcL AH Workflow SS Neutrophils/100 WBC (Bld) 48.2 % Invalid Interpretation Code 50.0 - 75.0 % AH Workflow SS Phosphate [Mass/Vol] 5.3 mg/dL Invalid Interpretation Code 2.4 - 5.1 mg/dL ADM SS Platelet mean volume (Bld) [Entitic vol] 7.0 fL Invalid Interpretation Code 6.6 - 10.5 fL AH Workflow SS Platelets (Bld) [#/Vol] 364 103/mcL Invalid Interpretation Code 150 - 450 10^3/mcL AH Workflow SS Potassium [Moles/Vol] 4.1 mmol/L Invalid [...] 22.0 ratio ADM SS WBC (Bld) [#/Vol] 6.9 103/mcL [...] 49 U/L ADM SS AST [Catalytic activity/Vol] 18 U/L [...] 0.7 10^3/mcL Workflow SS Eosinophils/100 WBC (Bld) 8.3 % [...] 46.0 % Workflow SS Hemoglobin (Bld) [Mass/Vol] 11.7 G/dL Invalid Interpretation Code 12.0 - 16.0 G/dL Workflow SS Lymphocytes (Bld) [#/Vol] 1.8 103/mcL Invalid Interpretation Code 0.9 - 4.3 10^3/mcL Workflow SS Lymphocytes/100 WBC (Bld) 32.6 % Invalid Interpretation Code 20.0 - 40.0 % AH Workflow SS Magnesium [Mass/Vol] 1.7 mg/dL Invalid Interpretation Code 1.6 - 2.4 mg/dL ADM SS MCH (RBC) [Entitic mass] 30.1 pg Invalid Interpretation Code 27.0 - 33.0 pg AH Workflow SS MCHC 32.8 G/dL Invalid Interpretation Code 32.0 - 36.0 G/dL Workflow SS MCV (RBC) [Entitic vol] 91.8 [...] 10^3/mcL AH Workflow SS Neutrophils/100 WBC (Bld) 41.5 % Invalid Interpretation Code 50.0 - 75.0 % AH Workflow SS Phosphate [Mass/Vol] 4.9 mg/dL Invalid Interpretation Code 2.4 - 5.1 mg/dL AH ADM SS Platelet mean volume (Bld) [Entitic vol] 7.0 fL Invalid Interpretation Code 6.6 - 10.5 fL AH Workflow SS Platelets (Bld) [#/Vol] 389 103/mcL Invalid Interpretation Code 150 - 450 10^3/mcL AH Workflow SS Potassium [Moles/Vol] 4.0 mmol/L Invalid Interpretation Code 3.5 - 5.0 mEq/L AH ADM SS Protein [Mass/Vol] 5.6 G/dL Invalid Interpretation Code 5.7 - 8.2 G/dL AH ADM SS RBC (Bld) [#/Vol] 3.90 106/mcL [...] 2.5 % AH Workflow SS Bilirubin [Mass/Vol] 0.20 mg/dL Invalid [...] 10^3/mcL AH Workflow SS Lymphocytes/100 WBC (Bld) 34.6 % Invalid Interpretation Code 20.0 - 40.0 % AH Workflow SS Magnesium [Mass/Vol] 1.9 mg/dL Invalid Interpretation Code 1.6 - 2.4 mg/dL ADM SS MCH (RBC) [Entitic mass] 30.0 pg Invalid Interpretation Code 27.0 - 33.0 pg AH Workflow SS MCHC 32.7 G/dL Invalid Interpretation Code 32.0 - 36.0 G/dL AH Workflow SS MCV (RBC) [Entitic vol] 91.9 fL Invalid Interpretation Code 80.0 - 99.0 fL Workflow SS Monocytes (Bld) [#/Vol] 0.9 103/mcL Invalid Interpretation Code 0.1 - 1.4 10^3/mcL AH Workflow SS Monocytes/100 WBC (Bld) 15.8 % Invalid Interpretation Code 2.0 - 13.0 % AH Workflow SS Neutrophils (Bld) [#/Vol] 2.2 103/mcL Invalid Interpretation Code 2.3 - 8.1 10^3/mcL AH Workflow SS Neutrophils/100 WBC (Bld) 40.1 % Invalid Interpretation Code 50.0 - 75.0 % Workflow SS Phosphate [Mass/Vol] 4.4 mg/dL Invalid Interpretation Code 2.4 - 5.1 mg/dL ADM SS Platelet mean volume (Bld) [Entitic vol] 6.8 fL Invalid Interpretation Code 6.6 - 10.5 fL AH Workflow SS Platelets (Bld) [#/Vol] 412 103/mcL Invalid Interpretation Code 150 - 450 10^3/mcL AH Workflow SS Potassium [Moles/Vol] 4.0 mmol/L Invalid Interpretation Code 3.5 - 5.0 mEq/L ADM SS Protein [Mass/Vol] 6.7 G/dL Invalid Interpretation Code 5.7 - 8.2 G/dL ADM SS RBC (Bld) [#/Vol] 4.26 106/mcL [...] above: Result Comment: ..re ad back by Terry Saldana Pharmacist at 05/05/2023 01:00:00 EDT WBC [...] (05/02/23 6:22 AM) Invalid Interpretation Code 1.006-1.029 Auto Urine SS UA Specimen Type Catheter (05/02/23 6:22 AM) Invalid Interpretation Code AH Auto Urine SS UA Squam Epithelial 3-5 /HPF Invalid Interpretation Code 0-20/HPF Auto Urine SS UA Urobilinogen 0.2 E.U./dL Invalid Interpretation Code 0.2-1.0E.U. /dL AH Auto Urine SS WBC LM.HPF (Urine sed) [#/Area] 10-20 /HPF Invalid Interpretation Code 0-5/HPF Auto Urine SS No Panel Informationon 05-02 Culture Urine No growth at 48 hours. [facility] Work Phone: Culture Urine No growth at 48 hours. [facility] Work Phone: LABORATORYOrdered By: SYSTEM SYSTEM on 04-29-2023 25-hydroxyvitamin D3 [Mass/Vol] 15.9 ng/mL Invalid Interpretation Code ADM SS Cobalamin (Vitamin B12) [Mass/Vol] 292 pg/mL Invalid Interpretation Code 211 - 911 pg/mL ADM SS Ferritin [Mass/Vol] 9.6 ng/mL Invalid Interpretation Code 8.0 - 252.0 ng/mL ADM SS Folate [Mass/Vol] 10.16 ng/mL Invalid Interpretation Code 5.38 - 24.00 ng/mL ADM SS Iron [Mass/Vol] 52 ug/dL Invalid Interpretation Code 50 - 170 mcg/dL ADM SS Iron binding capacity [Mass/Vol] 318 mcg/dL Invalid Interpretation Code 250 - 500 mcg/dL ADM SS Iron saturation [Mass fraction] 16 1 Invalid Interpretation Code ADM SS LABORATORYOrdered By: SYSTEM SYSTEM on 04-28-2023 Monocyte distribution width Auto (Bld) [Entitic vol] 16.09 Invalid Interpretation Code 0.00 - 20.00 Workflow [...] or 2. Interpretative criteria are not available. [facility] Work Phone: Cefotaxime ANA LILIA [Susc]on 04-04 Enterococcus faecalis Enterococcus faecalis [facility] Work Phone: Klebsiella oxytoca Raoultella ornithinolytica Klebsiella oxytoca Raoultella ornithinolytica [facility] Work Phone: Myroides odoratimimus [facility] Work Phone: Vagococcus fluvialis Vagococcus fluvialis [facility] Work Phone: LABORATORYOrdered By: Jesus Pedro on 04-27-2023 Appearance (U) Martha *ABN* (04/27/23 10:44 PM) Invalid Interpretation Code Clear Auto Urine SS Bacteria LM.HPF (Urine sed) [#/Area] 3 /[HPF] Invalid Interpretation Code Negative/HP F Auto Urine SS Bilirubin Ql (U) Negative (04/27/23 10:44 PM) Invalid Interpretation Code Neg-Trace Auto Urine SS Color (U) Yellow (04/27/23 [...] (04/27/23 10:44 PM) Invalid Interpretation Code Negative Auto Urine SS UA Nitrite Positive *ABN* (04/27/23 10:44 PM) Invalid Interpretation Code Negative Auto Urine SS UA pH 7.5 (04/27/23 10:44 PM) Invalid Interpretation Code 5.0 - 8.0 AH Auto Urine SS UA Protein 30 mg/dL Invalid Interpretation Code Negativemg/ dL AH Auto Urine SS UA RBC 3-5 /HPF Invalid Interpretation Code 0-2/HPF AH Auto Urine SS UA Spec Grav 1.020 (04/27/23 10:44 PM) Invalid Interpretation Code 1.006-1.029 AH Auto Urine SS UA Specimen Type Catheter (04/27/23 10:44 PM) Invalid Interpretation Code AH Auto Urine SS UA Squam Epithelial Rare /HPF Invalid Interpretation Code 0-20/HPF AH Auto [...] 15.73 Invalid Interpretation Code 0.00 - 20.00 Workflow SS Comment on above: Result Comment: For ED adult patients suspected of sepsis, MDW<=20.0 does not rule out sepsis or risk of sepsis No Panel Informationon 04-27 Microscopic examination of blood, culture Blood Culture: No Growth at 5 days. [facility] Work Phone: Culture Urine >100,000 cfu/ml Mult iple bacterial morphotypes present. Probable Contamination. Suggest recollection if clinically indicated. [facility] Work Phone: LABORATORYOrdered By: SYSTEM SYSTEM on [...] U/L AH ADM SS AST [Catalytic activity/Vol] 28 U/L Invalid Interpretation Code 8 - 34 U/L AH ADM SS Basophils (Bld) [#/Vol] 0.1 103/mcL Invalid Interpretation Code 0.0 - 0.3 10^3/mcL Workflow SS Basophils/100 WBC (Bld) 1.0 % [...] 46.0 % Workflow SS Hemoglobin (Bld) [Mass/Vol] 10.7 G/dL Invalid Interpretation Code 12.0 - 16.0 G/dL Workflow SS Lymphocytes (Bld) [#/Vol] 1.6 103/mcL Invalid Interpretation Code 0.9 - 4.3 10^3/mcL Workflow SS Lymphocytes/100 WBC (Bld) 20.9 % [...] 13.0 % Workflow SS Neutrophils (Bld) [#/Vol] 4.6 103/mcL [...] 10.5 fL Workflow SS Platelets (Bld) [#/Vol] 422 103/mcL Invalid Interpretation Code 150 - 450 10^3/mcL AH Workflow SS Potassium [Moles/Vol] 4.0 mmol/L Invalid Interpretation Code 3.5 - 5.0 mEq/L ADM SS Protein [Mass/Vol] 5.3 G/dL Invalid Interpretation Code 5.7 - 8.2 G/dL AH ADM SS RBC (Bld) [#/Vol] 3.44 106/mcL [...] G/dL AH ADM SS Albumin/Globulin [Mass ratio] 1.1 {ratio} [...] 10^3/mcL AH Workflow SS Basophils/100 WBC (Bld) 0.8 % [...] % AH Workflow SS Hemoglobin (Bld) [Mass/Vol] 11.2 G/dL [...] 13.0 % Workflow SS Neutrophils (Bld) [#/Vol] 3.7 103/mcL [...] AH ADM SS Urea nitrogen/Creatinine [Mass ratio] 11.7 [...] (03/03/23 8:16 AM) Invalid Interpretation Code Negative AH Auto Viro/Sero SS Comment on above: Result Comment: Note s RSV PCR Negative 5 (03/03/23 8:16 AM) Invalid Interpretation Code Negative Auto Viro/Sero SS Comment on above: Result Comment: Note s SARS-CoV-2 (COVID-19) RNA SUZI+probe Ql (Resp) Negative 2 (03/03/23 8:16 AM) Invalid Interpretation Code Negative AH Auto Viro/Sero SS Comment on above: Result Comment: Note s LABORATORYOrdered By: SYSTEM SYSTEM on 03-03-2023 Albumin BCP dye [Mass/Vol] 2.5 G/dL Invalid Interpretation Code 3.2 - 4.8 G/dL AH ADM SS Albumin/Globulin [Mass ratio] 1.0 {ratio} Invalid Interpretation Code 0.9 - 1.6 ratio ADM SS ALP [Catalytic activity/Vol] 87 U/L [...] G/dL AH Workflow SS Lymphocytes (Bld) [#/Vol] 1.7 103/mcL Invalid Interpretation Code 0.9 - 4.3 10^3/mcL AH Workflow SS Lymphocytes/100 WBC (Bld) 25.4 % [...] 10.5 fL Workflow SS Platelets (Bld) [#/Vol] 420 103/mcL Invalid Interpretation Code 150 - 450 10^3/mcL AH Workflow SS Potassium [Moles/Vol] 4.5 mmol/L Invalid Interpretation Code 3.5 - 5.0 mEq/L ADM SS Protein [Mass/Vol] 5.0 G/dL Invalid [...] - 10.8 10^3/mcL AH Workflow SS CEFTRIAXONE:SUSC:PT:ISOLATE: ORDQN:ANA LILIAon 02-23-2023 cefTRIAXone ANA LILIA [Susc] 10,000 - 50,000 c fu/ml Escherichia coli ESBL Extended-Spectrum B-Lactamase isolate may be clinically resistant to therapy with Penicillins, Cephalosporinsor Aztreonam despite apparent in vitro susceptibility to some of these agents. Use of Imipenem is currently restricted to Infectious Disease /Intensivists. Please consult Physicians accordingly. [facility] Work Phone: LABORATORYOrdered By: Juan Diego Echevarria [...] Invalid Interpretation Code 0.2 - 2.0 mmol/L Auto Chem SS LABORATORYOrdered By: SYSTEM SYSTEM [...] test) Ql (U) Negative (02/23/23 12:06 PM) [facility] Work Phone: No Panel Informationon 02-23 Culture Urine No growth at 48 hours. [facility] Work Phone: Microscopic examination of blood, culture Blood Culture: No Growth at 5 days. [facility] Work Phone: cefTRIAXone ANA LILIA [Susc]on Escherichia coli ESBL Escherichia coli ESBL [facility] Work Phone: LABORATORYOrdered By: SYSTEM SYSTEM on [...] 27.0 - 33.0 pg Workflow SS MCHC 33.1 G/dL Invalid Interpretation Code 32.0 - 36.0 G/dL Workflow SS MCV (RBC) [Entitic vol] 98.3 fL Invalid Interpretation Code 80.0 - 99.0 fL Workflow SS Monocytes (Bld) [#/Vol] 0.6 103/mcL Invalid Interpretation Code 0.1 - 1.4 10^3/mcL Workflow SS Monocytes/100 WBC (Bld) 11.0 % Invalid Interpretation Code 2.0 - 13.0 % Workflow SS Neutrophils (Bld) [#/Vol] 2.6 103/mcL Invalid Interpretation Code 2.3 - 8.1 10^3/mcL Workflow SS Neutrophils/100 WBC (Bld) 50.5 % [...] - 5.30 10^6/mcL Workflow SS Sodium [Moles/Vol] 143 mmol/L Invalid [...] 1.6 ratio ADM SS ALP [Catalytic activity/Vol] 57 U/L [...] 10^3/mcL AH Workflow SS Eosinophils/100 WBC (Bld) 8.2 % [...] mg/dL ADM SS MCH (RBC) [Entitic mass] 32.7 pg Invalid Interpretation Code 27.0 - 33.0 pg Workflow SS MCHC 33.0 G/dL Invalid Interpretation Code 32.0 - 36.0 G/dL Workflow SS MCV (RBC) [Entitic vol] 99.0 fL Invalid Interpretation Code 80.0 - 99.0 fL AH Workflow SS Monocytes (Bld) [#/Vol] 0.6 103/mcL Invalid Interpretation Code 0.1 - 1.4 10^3/mcL AH Workflow SS Monocytes/100 WBC (Bld) 10.9 % Invalid Interpretation Code 2.0 - 13.0 % AH Workflow SS Neutrophils (Bld) [#/Vol] 2.7 103/mcL Invalid Interpretation Code 2.3 - 8.1 10^3/mcL AH Workflow SS Neutrophils/100 WBC (Bld) 49.9 % [...] 5.30 10^6/mcL AH Workflow SS Sodium [Moles/Vol] 142 mmol/L Invalid Interpretation Code 136 - 145 mEq/L ADM SS Urea nitrogen [Mass/Vol] 8.0 mg/dL Invalid Interpretation Code 8.0 - 22.0 mg/dL ADM SS Urea nitrogen/Creatinine [Mass ratio] 10.1 ratio Invalid Interpretation Code 10.0 - 22.0 ratio AH ADM SS WBC (Bld) [#/Vol] 5.4 103/mcL [...] % AH Workflow SS Hemoglobin (Bld) [Mass/Vol] 11.2 G/dL Invalid Interpretation Code 12.0 - 16.0 G/dL AH Workflow SS Lymphocytes (Bld) [#/Vol] 1.9 103/mcL Invalid Interpretation Code 0.9 - 4.3 10^3/mcL AH Workflow SS Lymphocytes/100 WBC (Bld) 33.8 % [...] 10^3/mcL AH Workflow SS Neutrophils/100 WBC (Bld) 48.2 % Invalid Interpretation Code 50.0 - 75.0 % Workflow SS Phosphate [Mass/Vol] 3.9 mg/dL Invalid Interpretation Code 2.4 - 5.1 mg/dL ADM SS Platelet mean volume (Bld) [Entitic vol] 7.3 fL Invalid Interpretation Code 6.6 - 10.5 fL Workflow SS Platelets (Bld) [#/Vol] 321 103/mcL Invalid Interpretation Code 150 - 450 10^3/mcL AH Workflow SS Potassium [Moles/Vol] 4.2 mmol/L Invalid Interpretation Code 3.5 - 5.0 mEq/L ADM SS Protein [Mass/Vol] 4.9 G/dL Invalid [...] 10^3/mcL AH Workflow SS LABORATORYOrdered By: Miroslava Ramos on 01-01-2023 Appearance (U) Clear (01/01/23 8:13 [...] (01/01/23 7:59 PM) Invalid Interpretation Code Clear Auto Urine SS Bacteria LM.HPF (Urine sed) [...] (01/01/23 7:59 PM) Invalid Interpretation Code 1.006-1.029 Auto Urine [...] 12.0 - 16.0 G/dL AH Workflow SS Iron [Mass/Vol] 35 ug/dL Invalid [...] 10.5 fL Workflow SS Platelets (Bld) [#/Vol] 396 103/mcL Invalid Interpretation Code 150 - 450 10^3/mcL Workflow SS Potassium [Moles/Vol] 3.8 mmol/L Invalid Interpretation Code 3.5 - 5.0 mEq/L ADM SS Protein [Mass/Vol] 6.9 G/dL Invalid [...] >=1000 mg/dL Invalid Interpretation Code Negativemg/ dL Auto Urine SS UA RBC LOADED /HPF Invalid Interpretation Code 0-2/HPF AH Auto Urine SS UA Spec Grav >=1.030 *ABN* (01/01/23 1:18 PM) Invalid Interpretation Code 1.006-1.029 AH Auto Urine SS UA Specimen Type Catheter (01/01/23 1:18 PM) Invalid Interpretation Code Auto Urine SS UA Squam Epithelial 0-2 /HPF Invalid Interpretation Code 0-20/HPF AH Auto Urine SS UA Trip Rai Crystals 3+ /HPF Invalid Interpretation Code AH Auto Urine SS UA Urobilinogen 1.0 E.U./dL Invalid Interpretation Code 0.2-1.0E.U. /dL AH Auto Urine SS WBC LM.HPF (Urine sed) [#/Area] LOADED /HPF Invalid Interpretation Code 0-5/HPF AH Auto Urine SS LABORATORYOrdered By: Deshaun jenkins Essie on 01-01-2023 Creatinine (U) [Mass/Vol] 194.8 mg/dL Invalid Interpretation Code ADM SS Protein (U) [Mass/Vol] 450.4 mg/dL Invalid Interpretation Code AH ADM SS U Ratio Prot/Creat 2.3 ratio Invalid Interpretation Code ADM SS Laboratory - Microbiology an d Antimicrobial susceptibilityOrdered By: [facility] MICRO[facility] on 01-01-2023 Bacteria identified Cx Nom (Bld) Culture has been received in lab and is no growth to date. Culture will be held for four weeks. [facility] No Panel Informationon 01-01 Culture Urine >100,000 cfu/ml Multiple bacterial morphotypes present. Probable Contamination. Suggest recollection if clinically indicated. [facility] Work Phone: Culture Urine >100,000 cfu/ml Multiple bacterial morphotypes present. Probable Contamination. Suggest recollection if clinically indicated. [facility] Work Phone: LABORATORYOrdered By: SYSTEM SYSTEM on 11-15-2022 Basophils (Bld) [#/Vol] 0.0 103/mcL Invalid Interpretation Code 0.0 - 0.3 10^3/mcL AH Workflow SS Basophils/100 WBC (Bld) 0.3 % Invalid Interpretation Code 0.0 - 2.5 % Workflow SS Creatinine [Mass/Vol] 0.80 mg/dL Invalid [...] Invalid Interpretation Code 9.0 - 14.9 seconds Auto Coag SS LABORATORYOrdered By: SYSTEM SYSTEM [...] 1.20 mg/dL AH ADM SS Calcium [Mass/Vol] 8.5 mg/dL Invalid [...] 10^3/mcL AH Workflow SS Eosinophils/100 WBC (Bld) 6.3 % [...] G/dL Workflow SS MCV (RBC) [Entitic vol] 103.0 [...] 46.0 % Workflow SS Hemoglobin (Bld) [Mass/Vol] 12.1 G/dL [...] G/dL Workflow SS MCV (RBC) [Entitic vol] 102.2 fL Invalid Interpretation Code 80.0 - 99.0 fL Workflow SS Monocytes (Bld) [#/Vol] 0.7 103/mcL Invalid Interpretation Code 0.1 - 1.4 10^3/mcL Workflow SS Monocytes/100 WBC (Bld) 12.7 % Invalid Interpretation Code 2.0 - 13.0 % Workflow SS Neutrophils (Bld) [#/Vol] 2.9 103/mcL Invalid Interpretation Code 2.3 - 8.1 10^3/mcL Workflow SS Neutrophils/100 WBC (Bld) 50.2 % Invalid Interpretation Code 50.0 - 75.0 % Workflow SS Phosphate [Mass/Vol] 3.6 mg/dL Invalid Interpretation Code 2.4 - 5.1 mg/dL ADM SS Platelet mean volume (Bld) [Entitic vol] 6.8 fL Invalid Interpretation Code 6.6 - 10.5 fL Workflow SS Platelets (Bld) [#/Vol] 378 103/mcL Invalid Interpretation Code 150 - 450 10^3/mcL Workflow SS Potassium [Moles/Vol] 4.3 mmol/L Invalid [...] 22.0 ratio ADM SS WBC (Bld) [#/Vol] 5.8 103/mcL [...] % AH Workflow SS Neutrophils (Bld) [#/Vol] 3.2 103/mcL Invalid Interpretation Code 2.3 - 8.1 10^3/mcL AH Workflow SS Neutrophils/100 WBC (Bld) 54.7 % Invalid Interpretation Code 50.0 - 75.0 % AH Workflow SS Phosphate [Mass/Vol] 3.2 mg/dL Invalid Interpretation Code 2.4 - 5.1 mg/dL AH ADM SS Platelet mean volume (Bld) [Entitic vol] 6.7 fL Invalid Interpretation Code 6.6 - 10.5 fL AH Workflow SS Platelets (Bld) [#/Vol] 347 103/mcL Invalid Interpretation Code 150 - 450 10^3/mcL AH Workflow SS Potassium [Moles/Vol] 3.8 mmol/L Invalid Interpretation Code 3.5 - 5.0 mEq/L AH ADM SS Comment on above: Result Comment: Spec imen slightly hemolyzed. Protein [Mass/Vol] 5.2 G/dL Invalid Interpretation Code 5.7 - 8.2 G/dL AH ADM SS RBC (Bld) [#/Vol] 3.59 106/mcL Invalid Interpretation Code 4.10 - 5.30 10^6/mcL AH Workflow SS Sodium [Moles/Vol] 140 mmol/L Invalid Interpretation Code 136 - 145 mEq/L AH ADM SS Urea nitrogen [Mass/Vol] 5.0 mg/dL Invalid Interpretation Code 8.0 - 22.0 mg/dL AH ADM SS Urea nitrogen/Creatinine [Mass ratio] 6.5 ratio Invalid Interpretation Code 10.0 - 22.0 ratio AH ADM SS WBC (Bld) [#/Vol] 5.9 [...] Culture Urine No growth at 48 hours. [facility] Work Phone: LABORATORYOrdered By: Alicia Gardiner on [...] 14.85 Invalid Interpretation Code 0.00 - 20.00 Workflow SS Comment on above: Result Comment: For ED adult patients suspected of sepsis, MDW<=20.0 does not rule out sepsis or risk of sepsis Laboratory - Microbiology an d Antimicrobial susceptibilityOrdered By: [facility] on 09-30-2022 Bacteria identified Cx Nom (Bld) Culture has been received in lab and is no growth to date. Culture will be held for four weeks. [facility] No Panel Informationon 09-30 Culture Urine >100,000 cfu/ml Mult iple bacterial morphotypes present. Probable Contamination. Suggest recollection if clinically indicated. [facility] Work Phone: LABORATORYOrdered By: SYSTEM SYSTEM on 09-27-2022 Albumin BCP dye [Mass/Vol] 4.4 G/dL Invalid Interpretation Code 3.2 - 4.8 G/dL ADM SS Albumin/Globulin [Mass ratio] 1.4 {ratio} Invalid Interpretation Code 0.9 - 1.6 ratio ADM SS ALP [Catalytic activity/Vol] 83 U/L [...] - 1.20 mg/dL ADM SS Calcium [Mass/Vol] 9.7 mg/dL Invalid [...] 10^3/mcL AH Workflow SS Eosinophils/100 WBC (Bld) 2.0 % Invalid Interpretation Code 0.0 - 6.0 % AH Workflow SS Erythrocyte distribution width (RBC) [Ratio] 15.2 % Invalid Interpretation Code 11.5 - 15.5 % AH Workflow SS GFR/1.73 sq M.predicted among blacks MDRD (S/P/Bld) [Vol rate/Area] ml/min/1.73sqm Invalid Interpretation Code AH ADM SS GFR/1.73 sq M.predicted among non-blacks [...] 10^3/mcL AH Workflow SS Lymphocytes/100 WBC (Bld) 18.4 % Invalid Interpretation Code 20.0 - 40.0 % AH Workflow SS MCH (RBC) [Entitic mass] 34.0 pg Invalid Interpretation Code 27.0 - 33.0 pg AH Workflow SS MCHC 33.5 G/dL Invalid Interpretation Code 32.0 - 36.0 G/dL AH Workflow SS MCV (RBC) [Entitic vol] 101.5 fL Invalid Interpretation Code 80.0 - 99.0 fL AH Workflow SS Monocyte distribution width Auto (Bld) [Entitic vol] 16.21 Invalid Interpretation Code 0.00 - 20.00 Workflow [...] - 5.0 mEq/L ADM SS Protein [Mass/Vol] 7.5 G/dL Invalid Interpretation Code 5.7 - 8.2 G/dL ADM SS RBC (Bld) [#/Vol] 4.29 106/mcL Invalid Interpretation Code 4.10 - 5.30 10^6/mcL AH Workflow SS Sodium [Moles/Vol] 136 mmol/L Invalid Interpretation Code 136 - 145 mEq/L ADM SS Urea nitrogen [Mass/Vol] 12.0 mg/dL Invalid Interpretation Code 8.0 - 22.0 mg/dL ADM SS Urea nitrogen/Creatinine [Mass ratio] 15.4 ratio Invalid Interpretation Code 10.0 - 22.0 ratio ADM SS WBC (Bld) [#/Vol] 9.6 103/mcL [...] 10^3/mcL AH Workflow SS Basophils/100 WBC (Bld) 0.6 % [...] 8.2 G/dL ADM SS RBC (Bld) [#/Vol] 3.67 106/mcL Invalid Interpretation Code 4.10 - 5.30 10^6/mcL Workflow SS Sodium [Moles/Vol] 139 mmol/L Invalid Interpretation Code 136 - 145 mEq/L ADM SS Urea nitrogen [Mass/Vol] 7.0 mg/dL Invalid Interpretation Code 8.0 - 22.0 mg/dL ADM SS Urea nitrogen/Creatinine [Mass ratio] 8.2 ratio Invalid Interpretation Code 10.0 - 22.0 ratio ADM SS WBC (Bld) [#/Vol] 5.6 103/mcL [...] % AH Workflow SS Hemoglobin (Bld) [Mass/Vol] 12.2 G/dL Invalid Interpretation Code 12.0 - 16.0 G/dL AH Workflow SS Lymphocytes (Bld) [#/Vol] 1.6 103/mcL Invalid Interpretation Code 0.9 - 4.3 10^3/mcL AH Workflow SS Lymphocytes/100 WBC (Bld) 22.8 % Invalid Interpretation Code 20.0 - 40.0 % AH Workflow SS Magnesium [Mass/Vol] 2.1 mg/dL Invalid Interpretation Code 1.6 - 2.4 mg/dL ADM SS MCH (RBC) [Entitic mass] 34.1 pg Invalid Interpretation Code 27.0 - 33.0 pg AH Workflow SS MCHC 33.9 G/dL Invalid Interpretation Code 32.0 - 36.0 G/dL AH Workflow SS MCV (RBC) [Entitic vol] 100.5 fL Invalid Interpretation Code 80.0 - 99.0 fL AH Workflow SS Monocytes (Bld) [#/Vol] 0.8 103/mcL Invalid Interpretation Code 0.1 - 1.4 10^3/mcL AH Workflow SS Monocytes/100 WBC (Bld) 10.9 % Invalid Interpretation Code 2.0 - 13.0 % AH Workflow SS Neutrophils (Bld) [#/Vol] 3.8 103/mcL Invalid Interpretation Code 2.3 - 8.1 10^3/mcL AH Workflow SS Neutrophils/100 WBC (Bld) 55.2 % Invalid Interpretation Code 50.0 - 75.0 % AH Workflow SS Phosphate [Mass/Vol] 2.4 mg/dL Invalid Interpretation Code 2.4 - 5.1 mg/dL AH ADM SS Platelet mean volume (Bld) [Entitic vol] 6.5 fL Invalid Interpretation Code 6.6 - 10.5 fL AH Workflow SS Platelets (Bld) [#/Vol] 382 103/mcL [...] 22.0 ratio ADM SS WBC (Bld) [#/Vol] 6.9 103/mcL [...] 2.5 % AH Workflow SS Bilirubin [Mass/Vol] 0.20 mg/dL Invalid [...] 46.0 % Workflow SS Hemoglobin (Bld) [Mass/Vol] 11.8 G/dL Invalid Interpretation Code 12.0 - 16.0 G/dL Workflow SS Lymphocytes (Bld) [#/Vol] 1.6 103/mcL Invalid Interpretation Code 0.9 - 4.3 10^3/mcL Workflow SS Lymphocytes/100 WBC (Bld) 26.7 % [...] 145 mEq/L ADM SS WBC (Bld) [#/Vol] 5.9 103/mcL [...] the reportable range. AMIKACIN:SUSC:PT:ISOLATE:ORD QN:MICon 08-09-2022 Amikacin ANA LILIA [Susc] >100,000 cfu/ml Escherichia coli ESBL >100,000 [...] or 2. Interpretative criteria are not available. [facility] Work Phone: Amikacin ANA LILIA [Susc]on 2021 Corynebacterium amycolatum Corynebacterium amycolatum [facility] Work Phone: Escherichia coli ESBL Escherichia coli ESBL [facility] Work Phone: LABORATORYOrdered By: Nilda Flores on [...] (08/08/22 7:17 PM) Invalid Interpretation Code 1.006-1.029 Auto Urine SS UA Specimen Type Catheter (08/08/22 7:17 PM) Invalid Interpretation Code AH Auto Urine SS UA Squam Epithelial 0-2 /HPF Invalid Interpretation Code 0-20/HPF AH Auto Urine SS UA Urobilinogen 0.2 E.U./dL Invalid Interpretation Code 0.2-1.0E.U. /dL Auto Urine SS WBC LM.HPF (Urine sed) [...] (08/08/22 12:55 PM) Invalid Interpretation Code 1.006-1.029 AH Auto Urine SS UA Specimen Type Catheter (08/08/22 12:55 PM) Invalid Interpretation Code AH Auto Urine SS UA Squam Epithelial Negative [...] AH ADM SS MCH (RBC) [Entitic mass] 33.8 [...] Interpretation Code 1.12 - 1.32 mmol/L CC P SS Chloride [Moles/Vol] 112 mmol/L Invalid Interpretation Code 98 - 110 mEq/L CC [facility] SS CO2 [Moles/Vol] 18 mmol/L Invalid Interpretation Code 22 - 32 mEq/L CC P SS Creatinine [Mass/Vol] 0.88 mg/dL Invalid Interpretation Code 0.50 - 1.20 mg/dL CC GWP SS Electrolyte Balance 8.0 mEq/L Invalid Interpretation Code 4.0 - 15.0 mEq/L CC P SS Glucose [Mass/Vol] 97 mg/dL Invalid Interpretation Code 70 - 110 mg/dL CC P SS Potassium [Moles/Vol] 3.7 mmol/L Invalid Interpretation Code 3.5 - 5.0 mEq/L CC P SS Sodium [Moles/Vol] 138 mmol/L Invalid Interpretation Code 136 - 145 mEq/L CC P SS Urea nitrogen [Mass/Vol] 9.1 mg/dL Invalid [...] Probable Contamination. Suggest recollection if clinically indicated. [facility] Work Phone: LABORATORYOrdered By: SYSTEM SYSTEM on [...] 10^3/mcL AH Workflow SS Lymphocytes/100 WBC (Bld) 25.1 % Invalid Interpretation Code 20.0 - 40.0 % AH Workflow SS Magnesium [Mass/Vol] 1.9 mg/dL Invalid Interpretation Code 1.6 - 2.4 mg/dL AH ADM SS MCH (RBC) [Entitic mass] 34.2 pg Invalid Interpretation Code 27.0 - 33.0 pg AH Workflow SS MCHC 34.0 G/dL Invalid Interpretation Code 32.0 - 36.0 G/dL AH Workflow SS MCV (RBC) [Entitic vol] 100.5 [...] 10^3/mcL AH Workflow SS Monocytes/100 WBC (Bld) 9.7 % Invalid Interpretation Code 2.0 - 13.0 % AH Workflow SS Neutrophil, Absolute 3.6 103/mcL Invalid Interpretation Code 2.3 - 8.1 10^3/mcL AH Workflow SS Neutrophils/100 WBC (Bld) 58.3 % Invalid Interpretation Code 50.0 - 75.0 % AH Workflow SS Phosphate [Mass/Vol] 2.4 mg/dL Invalid Interpretation Code 2.4 - 5.1 mg/dL AH ADM SS Platelet 369 103/mcL Invalid Interpretation [...] - 22.0 ratio AH ADM SS WBC 6.2 103/mcL Invalid Interpretation [...] 0.3 10^3/mcL Workflow SS Basophils/100 WBC (Bld) 0.9 % [...] 0.7 10^3/mcL Workflow SS Eosinophils/100 WBC (Bld) 3.0 % [...] 40.0 % AH Workflow SS Magnesium [Mass/Vol] 1.9 mg/dL Invalid [...] cfu/ml. No Significant growth. Sensitivity not indicated. [facility] Work Phone: No Panel Informationon 04-14 Culture Urine >100,000 cfu/ml Escherichia coli ESBL Extended-Spectrum B-Lactamase isolate may be clinically resistant to therapy with Penicillins, Cephalosporinsor Aztreonam despite apparent in vitro susceptibility to some of these agents. Use of Imipenem is currently restricted to Infectious Disease /Intensivists. Please consult Physicians accordingly. >100,000 cfu/ml Enterococcus faecalis [facility] Work Phone: Enterococcus faecalis Enterococcus faecalis [facility] Work Phone: Escherichia coli ESBL Escherichia coli ESBL [facility] Work Phone: LABORATORYOrdered By: Oc De Leon on 12-21-2021 Beta HCG ( test) Ql (U) Negative (12/21/21 11:24 AM) [facility] Work Phone: Clinical Event Note-Hospital ist Follow [...] no voice mail Electronic Signatures: Akin Lewis (LABOR CREW SUPERVISOR-SWING FRAME 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) (Signed 20-Jul-2021 02:23) Authored: Clinical Event Note Last Updated: 20-Jul-2021 02:23 by Akin Lewis (LABOR CREW SUPERVISOR-SWING FRAME 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) Normal [facility] BASIC METABOLIC PANELon 07-04 Anion gap [Moles/Vol] 13 mmol/L Normal 10 - 20 [facility] Comment on above: Performed By: #### B MP #### [facility] [address] [place] [address] Calcium [Mass/Vol] 9.3 mg/dL Normal 8.6 - 10.6 [facility] Comment on above: Performed By: #### B MP #### [facility] [address] [place] [address] Chloride [Moles/Vol] 107 mmol/L Normal 98 - 107 [facility] Comment on above: Performed By: #### B MP #### [facility] [address] [place] [address] Creatinine [Mass/Vol] 0.76 mg/dL Normal 0.50 - 1.05 [facility] Comment on above: Performed By: #### B MP #### [facility] [address] [place] [address] GFR- AM. >60 Normal >60 [facility] Comment on above: Result Comment: CALC ULATIONS OF ESTIMATED GFR ARE PERFORMED USING THE MDRD STUDY EQUATION FOR THE IDMS-TRACEABLE CREATININE METHODS. CLIN CHEM 2007;53:766-72 Performed By: #### B MP #### [facility] [address] [place] [address] GFR-NON AM. >60 Normal >60 [facility] Comment on above: Performed By: #### B MP #### [facility] [address] [place] [address] Glucose [Mass/Vol] 77 mg/dL Normal 74 - 99 [facility] Comment on above: Performed By: #### B MP #### [facility] [address] [place] [address] HCO3 (Bld) [Moles/Vol] 26 mmol/L Normal 21 - 32 [facility] Comment on above: Performed By: #### B MP #### [facility] [address] [place] [address] Potassium [Moles/Vol] 4.2 mmol/L Normal 3.5 - 5.3 [facility] Comment on above: Performed By: #### B MP #### [facility] [address] [place] [address] Sodium [Moles/Vol] 142 mmol/L Normal 136 - 145 [facility] Comment on above: Performed By: #### B MP #### [facility] [address] [place] [address] Urea nitrogen [Mass/Vol] 8 mg/dL Normal 6 - 23 [facility] Comment on above: Performed By: #### B MP #### [facility] [address] [place] [address] CBCon 07-14-2021 Erythrocyte distribution width (RBC) [Ratio] 13.8 % Normal 11.5 - 14.5 [facility] Comment on above: Performed By: #### C BC #### [facility] [address] [place] [address] Hematocrit (Bld) [Volume fraction] 35.6 % Low 36.0 - 46.0 [facility] Comment on above: Performed By: #### C BC #### [facility] [address] [place] [address] Hemoglobin (Bld) [Mass/Vol] 12.3 g/dL Normal 12.0 - 16.0 [facility] Comment on above: Performed By: #### C BC #### [facility] [address] [place] [address] MCHC (RBC) [Mass/Vol] 34.6 g/dL Normal 32.0 - 36.0 [facility] Comment on above: Performed By: #### C BC #### [facility] [address] [place] [address] MCV (RBC) [Entitic vol] 108 fL High 80 - [address] [facility] Comment on above: Performed By: #### C BC #### [facility] [address] [place] [address] NUCLEATED RBC 0.0 /100 WBC Normal 0.0-0.0 [facility] Comment on above: Performed By: #### C BC #### [facility] [address] [place] [address] Platelets (Bld) [#/Vol] 462 10*3/uL High 150 - 450 [facility] Comment on above: Performed By: #### C BC #### [facility] [address] [place] [address] RBC 3.29 x10E12/L Low 4.00 - 5.20 [facility] Comment on above: Performed By: #### C BC #### [facility] [address] [place] [address] WBC (Bld) [#/Vol] 6.6 10*3/uL Normal 4.4 - 11.3 [facility] Comment on above: Performed By: #### C BC #### [facility] [address] [place] [address] Order Reconciliationon 07-14 Order Reconciliation Page 1 [...] patch TransDermal Every 24 HoursNotes from Pharmacy: [facility] 12-Jul-2021 20:53 Nicotine 14 mg/ 24 hour [...] be shared with your follow-up providers (doctor, restaurant greeter, physical therapist, etc.). Guidelines for a Healthy [...] be shared with your follow-up providers (doctor, restaurant greeter, physical therapist, etc.). Guidelines for a Healthy Lifestyle LORazepam 1 mg oral tablet 1 tab(s) orally 3 times a day, As Needed sulfamethoxazole-trimeth oprim 800 mg-160 mg oral tablet 1 tab(s) orally every 12 hours Normal [facility] BASIC METABOLIC PANELon 07-04 Anion gap [Moles/Vol] 9 mmol/L Low 10 - 20 [facility] Comment on above: Performed By: #### B MP #### [facility] [address] [place] [address] Calcium [Mass/Vol] 8.7 mg/dL Normal 8.6 - 10.6 [facility] Comment on above: Performed By: #### B MP #### [facility] [address] [place] [address] Chloride [Moles/Vol] 105 mmol/L Normal 98 - 107 [facility] Comment on above: Performed By: #### B MP #### [facility] [address] [place] [address] Creatinine [Mass/Vol] 0.67 mg/dL Normal 0.50 - 1.05 [facility] Comment on above: Performed By: #### B MP #### [facility] [address] [place] [address] GFR- AM. >60 Normal >60 [facility] Comment on above: Result Comment: CALC ULATIONS OF ESTIMATED GFR ARE PERFORMED USING THE MDRD STUDY EQUATION FOR THE IDMS-TRACEABLE CREATININE METHODS. CLIN CHEM 2007;53:766-72 Performed By: #### B MP #### [facility] [address] [place] [address] GFR-NON AM. >60 Normal >60 [facility] Comment on above: Performed By: #### B MP #### [facility] [address] [place] [address] Glucose [Mass/Vol] 89 mg/dL Normal 74 - 99 [facility] Comment on above: Performed By: #### B MP #### [facility] [address] [place] [address] HCO3 (Bld) [Moles/Vol] 28 mmol/L Normal 21 - 32 [facility] Comment on above: Performed By: #### B MP #### [facility] [address] [place] [address] Potassium [Moles/Vol] 4.2 mmol/L Normal 3.5 - 5.3 [facility] Comment on above: Performed By: #### B MP #### [facility] [address] [place] [address] Sodium [Moles/Vol] 138 mmol/L Normal 136 - 145 [facility] Comment on above: Performed By: #### B MP #### [facility] [address] [place] [address] Urea nitrogen [Mass/Vol] 7 mg/dL Normal 6 - 23 [facility] Comment on above: Performed By: #### B MP #### [facility] [address] [place] [address] CBCon 07-13-2021 Erythrocyte distribution width (RBC) [Ratio] 13.7 % Normal 11.5 - 14.5 [facility] Comment on above: Performed By: #### C BC #### [facility] [address] [place] [address] Hematocrit (Bld) [Volume fraction] 35.5 % Low 36.0 - 46.0 [facility] Comment on above: Performed By: #### C BC #### [facility] [address] [place] [address] Hemoglobin (Bld) [Mass/Vol] 11.7 g/dL Low 12.0 - 16.0 [facility] Comment on above: Performed By: #### C BC #### [facility] [address] [place] [address] MCHC (RBC) [Mass/Vol] 33.0 g/dL Normal 32.0 - 36.0 [facility] Comment on above: Performed By: #### C BC #### [facility] [address] [place] [address] MCV (RBC) [Entitic vol] 109 fL High 80 - 100 [facility] Comment on above: Performed By: #### C BC #### [facility] [address] [place] [address] NUCLEATED RBC 0.0 /100 WBC Normal 0.0-0.0 [facility] Comment on above: Performed By: #### C BC #### [facility] [address] [place] [address] Platelets (Bld) [#/Vol] 425 10*3/uL Normal 150 - 450 [facility] Comment on above: Performed By: #### C BC #### [facility] [address] [place] [address] RBC 3.26 x10E12/L Low 4.00 - 5.20 [facility] Comment on above: Performed By: #### C BC #### [facility] [address] [place] [address] WBC (Bld) [#/Vol] 5.9 10*3/uL Normal 4.4 - 11.3 [facility] Comment on above: Performed By: #### C BC #### [facility] [address] [place] [address] Daily Progress Note-Medicine on 07-13-2021 Daily Progress Note-Medicine Service: Medicine Subjective Data: LALY NAVAS is a 30 year old Female who is Hospital Day # 3. Patient states she is feeling better today. Still having some pain around the left nephrostomy tube. Objective Data: Objective Information: T PRBPSpO2 [id number]/06594% Date/Time07/13 16: 16: 16: 16: 16:02 Range(36.8C - 37.3C ) (68 - 90 ) (18 - 18 ) (109 - 120 )/ (75 - 93 ) (98% - 100% ) Highest temp of 37.3 C was recorded at 07/13 8:26 Pain reported at 07/13 6:36: 7 = Severe ---- Intake and Output ----- Mn/Dy/Year TimeIntakeOutputNet Jul 13, 2021 2:00 [id number] Jul 13, 2021 6:00 [id number] Jul 12, 2021 10:00 [id number] The Intake and Output Totals for the last 24 hours [facility]: [id number] Physical Exam by System: Constitutional: Well developed, [...] Updated: 13-Jul-2021 19:06 by Shira Teran) Normal [facility] Discharge [id number] Discharge Profile2 Discharge Orders: Anticipated Discharge Date: Anticipated Discharge [id number] Hospital Providers: Provider RoleProvider Name Shira Morse DNAR: DNAR Status: none Activity: activity as tolerated. Diet: Dietresume normal diet Provider FINAL REVIEW of Orders: Final Review: Final Review of Medication Reconciliation and Orders Completedby Physician Reviewing ProviderDimitra Marias, MD at 14-Jul-2021 14:12:33 Appointments: Follow-Up Appointment 01: Physician/Dept/Yara Plummer Reason for ReferralFollow up Scheduled Date/[id number] 11:10 [facility], [address] [place] [address], [address], [place] [address] Phone [phone] Electronic Signatures: Shira Teran) (Signed 14-Jul-2021 14:12) Authored: Discharge Orders, Provider FINAL REVIEW of Orders Delmar Ramos (LABOR CREW SUPERVISOR-SWING FRAME 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) (Signed 13-Jul-2021 10:30) Authored: Discharge Orders, Appointments, Gold Form - Capsule Inspector Summary Last Updated: 14-Jul-2021 14:12 by Shira Teran) Normal [facility] LACTATEon 07-13-2021 Lactate [Moles/Vol] 1.2 mmol/L Normal 0.4 - 2.0 [facility] Comment on above: Result Comment: Roseline puncture immediately after or during the administration of Metamizole may lead to falsely low results. Testing should be performed immediately prior to Metamizole dosing. Performed By: #### L ACT #### [facility] [address] [place] [address] Admission Risk Screen - Adul ton 07-12-2021 Admission Risk Screen - Adult Allergies: Allergies: No Known Allergies: Patient Verification: New W ID Band Applied in my Departmentno Type of ID Patient is WearingW wristband, but not applied here Patient Transferred from Other Facility ([facility], [facility],etc)no Patient Identity Verified Bypatient ID [...] AlertFor Ebola-like Symptoms: Isolate Patient and Notify Provider/Healthcare Network Consultant For Contact: Notify Provider/Healthcare Network Consultant Advance Directive: Advance Directive/DNRno (1) Advance Directive [...] Learning Preferencesverbal instruction Cultural Considerationsnone Developmental Considerationsnone Synagogue Considerationsnone Learning Assessment (Other Learner): Other learner availableno Depression Screen: During the past month, have you often been bothered by feeling down, depressed or hopelessyes During the past month, have you often had little interest or pleasure in doing thingsyes Have you had any thoughts of harming anyone elseno (2) [place] Suicide: Risk Screen Not Applicable/Able to Answerable to be screened In the Past Month: Have you wished you were or could go to sleep and not wake upno(2) In the Past Month: Have you had any actual thoughts of killing yourself no(2) Lifetime: Have you ever done, started to do, or prepared to do anything to end your lifeno [place] Suicide Risknegative Adult Nutrition Screen: Have you [...] (nonverbal)verbalization Chroni (more content not included)... Normal [facility] BASIC METABOLIC PANELon 09-0 Anion gap [Moles/Vol] 12 mmol/L Normal 10 - 20 [facility] Comment on above: Performed By: #### B MP #### [facility] [address] [place] [address] Calcium [Mass/Vol] 8.9 mg/dL Normal 8.6 - 10.6 [facility] Comment on above: Performed By: #### B MP #### [facility] [address] [place] [address] Chloride [Moles/Vol] 104 mmol/L Normal 98 - 107 [facility] Comment on above: Performed By: #### B MP #### [facility] [address] [place] [address] Creatinine [Mass/Vol] 0.69 mg/dL Normal 0.50 - 1.05 [facility] Comment on above: Performed By: #### B MP #### [facility] [address] [place] [address] GFR- AM. >60 Normal >60 [facility] Comment on above: Result Comment: CALC ULATIONS OF ESTIMATED GFR ARE PERFORMED USING THE MDRD STUDY EQUATION FOR THE IDMS-TRACEABLE CREATININE METHODS. CLIN CHEM 2007;53:766-72 Performed By: #### B MP #### [facility] [address] [place] [address] GFR-NON AM. >60 Normal >60 [facility] Comment on above: Performed By: #### B MP #### [facility] [address] [place] [address] Glucose [Mass/Vol] 85 mg/dL Normal 74 - 99 [facility] Comment on above: Performed By: #### B MP #### [facility] [address] [place] [address] HCO3 (Bld) [Moles/Vol] 28 mmol/L Normal 21 - 32 [facility] Comment on above: Performed By: #### B MP #### [facility] [address] [place] [address] Potassium [Moles/Vol] 4.2 mmol/L Normal 3.5 - 5.3 [facility] Comment on above: Performed By: #### B MP #### [facility] [address] [place] [address] Sodium [Moles/Vol] 140 mmol/L Normal 136 - 145 [facility] Comment on above: Performed By: #### B MP #### [facility] [address] [place] [address] Urea nitrogen [Mass/Vol] 7 mg/dL Normal 6 - 23 [facility] Comment on above: Performed By: #### B MP #### [facility] [address] [place] [address] CBCon 09-09-2021 Erythrocyte distribution width (RBC) [Ratio] 13.9 % Normal 11.5 - 14.5 [facility] Comment on above: Performed By: #### C BC #### [facility] [address] [place] [address] Hematocrit (Bld) [Volume fraction] 33.8 % Low 36.0 - 46.0 [facility] Comment on above: Performed By: #### C BC #### [facility] [address] [place] [address] Hemoglobin (Bld) [Mass/Vol] 11.2 g/dL Low 12.0 - 16.0 [facility] Comment on above: Performed By: #### C BC #### [facility] [address] [place] [address] MCHC (RBC) [Mass/Vol] 33.1 g/dL Normal 32.0 - 36.0 [facility] Comment on above: Performed By: #### C BC #### [facility] [address] [place] [address] MCV (RBC) [Entitic vol] 108 fL High 80 - 100 [facility] Comment on above: Performed By: #### C BC #### [facility] [address] [place] [address] NUCLEATED RBC 0.0 /100 WBC Normal 0.0-0.0 [facility] Comment on above: Performed By: #### C BC #### [facility] [address] [place] [address] Platelets (Bld) [#/Vol] 438 10*3/uL Normal 150 - 450 [facility] Comment on above: Performed By: #### C BC #### [facility] [address] [place] [address] RBC 3.13 x10E12/L Low 4.00 - 5.20 [facility] Comment on above: Performed By: #### C BC #### [facility] [address] [place] [address] WBC (Bld) [#/Vol] 8.7 10*3/uL Normal 4.4 - 11.3 [facility] Comment on above: Performed By: #### C #### [facility] [address] [place] [address] Discharge Planning [id number] 0 07-12-2021 Discharge Planning Note2 Discharge Planning: Discharge Barriersnone Planned Dispositionhome Discharge Destinationhome AMPAC < 20no PCP/Next Provider Follow Up Scheduledyes [place] of Choice Explainedno Anticipated Discharge [id number] Discharge Planning 07/12/2021 @ 1540 Transitional Care Coordination Progress Note: Patient discussed during interdisciplinary rounds. Team members present: Attending and TCC Plan per Medical/Surgical team: UTI, cultures pending. PMH Stg 3 invasive SCCA. PCNT drain in place Status: observation Payor source: [facility] Discharge disposition: Home with SO. Home care with [facility] just ended on 07/11. Pt declines the need for Home Care nurse. Pt independent with PCNT care. Potential Barriers: none ADOD: 07/13 Admission assessment completed at the bedside with the patient. See assessment tab for details. Pt's significant other will transport pt home when medically ready. Pari Abbott RNCC [phone] Transitional Block Operator Note: 07/14/2021@ 14:47. Patient is medically ready for discharge. No home care is required. Coleen Villa RN [facility] [phone] 07/14/21 7100-discussed d/c instructions with pt who verbalized understanding prior to d/c. de-accessed right chest mediport pt tolerated well. pt left unit prior to being given printed script for atb therapy. attending notified. Yolanda mckinley, government relations analyst: Discharge Planning Assessment [id number] Discharge Planning Assessment Completed byPari Abbott RNTCC Primary Contact Name and NumberMATT [phone], SO Prior Level of Functioningindependent with ADLs and SO helps with iADLs Independent with PCNT drain and site care Lives Withsignificant other Living Arrangementsmobile home; 3 steps to enter mobile home. Tub shower with seat Stated Reason for AdmissionABD PAIN(1) Arrived Fromemergency department (1) PCPsingh [facility] [place] Recent Falls/ Injury/ Need Assist with Ambulationno [...] Profile - Adult v2 12-Jul-2021 00:17 Normal [facility] HCG,URINEon 07-12-2021 Beta HCG ( test) Ql (U) Negative Normal Negative [facility] Comment on above: Performed By: #### [facility] #### [facility] [address] [place] [address] Nutrition Therapy-Assessment on 07-12-2021 Nutrition Therapy-Assessment Assessment Subjective/Objective: Note Type: Assessment Note Authored by: Registered Dietitian Marker Machine Pager Number: [phone] Nutrition Note: The patient is a 30 [...] denies Mobility: normal activity Food Allergies Comment: NKFA Nutritional Supplements: has a multivitamins and a [...] Mouth: negative Nails: negative Estimated Needs: kcals/day: 9947-8460 Predictive Equation Used: kcals/kg; 30-35 gms protein/day: [...] suggestions of meals/foods to try. Discussed utilizing [employer] for resources in her area. Education Provided to: patient Understanding of Diet: good Anticipated Compliance: fair Follow up: refer pt to outpatient nutrition therapy for follow up (likely closer to home) Nutrition Goals: Goals: Nutrition Therapy: consume prescribed supplement, electrolytes within normal limits NUTRITION R (more content not included)... Normal [facility] Order Reconciliationon 07-12 Order Reconciliation Page 1 [...] tab(s) orally 3 times a day, As [id number]-Jul-2021 PM LORazepam Tablet (ATIVAN)DOSE = 1 mg Oral Every 8 Hours, PRN AnxietyLORazepam 1 mg oral tablet continued as the inpatient order LORazepam Percocet 5/325 oral tablet orally every 4-6 hours, As [id number]-Jul-2021 Reviewed and Held Zofran 4 mg oral tablet orally every 4 hours, As [id number]- 2021 PM Reviewed and Held Documentation of [...] 6 Hours, PRN Nausea and/or Vomiting Normal [facility] Patient Profile - Adult v2on 07-12-2021 Patient Profile - Adult v2 Profile: Initial Info: How to be Addressedrachael (1) Spoken Language PreferredEnglish (1) Source of Informationpatient Stated Reason for AdmissionABD PAIN Primary Contact Name and NumberMATT [phone] Wants Family/Rep Notified of Admissionyes, primary contact Notify PCPnotify PCP Informed of Patient Visiting Rightsyes Arrived Fromemergency department Patient Belongingsremains with patient Patient Belongings Remaining with Patientvision aids; cell phone/electronics; purse/wallet; clothing Medications Brought to Hospitalyes Medication Dispositionlocked in unit medication cabinet General Health: Blood Avoidance/Restrictionsno ne(1) Weight in kg48.6 kilogram(s) Weight in llv625.1 pound(s) Weight Methodactual (measured) Scale Typestanding Height [...] From Triage - ED 11-Jul-2021 13:01 Normal [facility] BLOOD CULTURE, BACTERIALon 0 07-11-2021 BLOOD CULTURE, BACTERIAL PATIENT: LALY NAVAS LOCATION: [facility] BILL#: [id number] : 86 AGE: SEX: F ORDERED BY: LATANYA CUELLAR SOURCE: Blood COLLECTED: 07/11/21 14:43 ANTIBIOTICS AT BINA.: RECEIVED : 07/11/21 15:49 SITE: PERIPHERAL R E S U L T S BLOOD CULTURE, BACTERIAL FINAL 07/16/21 17:42 No Growth at 1 days No Growth at 2 days No Growth at 3 days No Growth at 4 days NO GROWTH - FINAL REPORT Normal [facility] Comment on above: Performed By: #### B LDC #### [facility] [address] [place] [address] BLOOD CULTURE, BACTERIAL PATIENT: LALY NAVAS LOCATION: BILL#: [id number] : 86 AGE: SEX: F ORDERED BY: LATANYA CUELLAR SOURCE: Blood COLLECTED: 07/11/21 14:42 ANTIBIOTICS AT BINA.: RECEIVED : 07/11/21 15:47 SITE: PERIPHERAL R E S U L T S BLOOD CULTURE, BACTERIAL FINAL 07/16/21 17:42 No Growth at 1 days No Growth at 2 days No Growth at 3 days No Growth at 4 days NO GROWTH - FINAL REPORT Normal [facility] Comment on above: Performed By: #### B LDC #### [facility] [address] [place] [address] CBC AND DIFFERENTIALon 07-11 % AUTOMATED IMMATURE GRAN 0.6 % Normal 0.0 - 0.9 [facility] Comment on above: Result Comment: Zoila ture Granulocyte Count (IG) includes promyelocytes, myelocytes and metamyelocytes but does not include bands. Percent differential counts (%) should be interpreted in the context of the absolute cell counts (cells/L). Performed By: #### U AMIC #### [facility] [address] [place] [address] Basophils (Bld) [#/Vol] 0.09 10*3/uL Normal 0.00 - 0.1 0 [facility] Comment on above: Performed By: #### U AMIC #### [facility] [address] [place] [address] Basophils/100 WBC (Bld) 1.0 % Normal 0.0 - 2.[address] [facility] Comment on above: Performed By: #### U AMIC #### [facility] [address] [place] [address] Eosinophils (Bld) [#/Vol] 0.56 10*3/uL Normal 0.00 - 0.70 [facility] Comment on above: Performed By: #### U AMIC #### [facility] [address] [place] [address] Eosinophils/100 WBC (Bld) 6.2 % Normal 0.0 - 6.0 [facility] Comment on above: Performed By: #### U AMIC #### [facility] [address] [place] [address] Erythrocyte distribution width (RBC) [Ratio] 14.1 % Normal 11.5 - 14.5 [facility] Comment on above: Performed By: #### U AMIC #### [facility] [address] [place] [address] Hematocrit (Bld) [Volume fraction] 35.9 % Low 36.0 - 46.0 [facility] Comment on above: Performed By: #### U AMIC #### [facility] [address] [place] [address] Hemoglobin (Bld) [Mass/Vol] 12.3 g/dL Normal 12.0 - 16.0 [facility] Comment on above: Performed By: #### U AMIC #### [facility] [address] [place] [address] Lymphocytes (Bld) [#/Vol] 2.39 10*3/uL Normal 1.20 - 4.80 [facility] Comment on above: Performed By: #### U AMIC #### [facility] [address] [place] [address] Lymphocytes/100 WBC (Bld) 26.5 % Normal 13.0 - 44.0 [facility] Comment on above: Performed By: #### U AMIC #### [facility] [address] [place] [address] MCHC (RBC) [Mass/Vol] 34.3 g/dL Normal 32.0 - 36.0 [facility] Comment on above: Performed By: #### U AMIC #### [facility] [address] [place] [address] MCV (RBC) [Entitic vol] 106 fL High 80 - [address] [facility] Comment on above: Performed By: #### U AMIC #### [facility] [address] [place] [address] Monocytes (Bld) [#/Vol] 0.79 10*3/uL Normal 0.10 - 1.0 0 [facility] Comment on above: Performed By: #### U AMIC #### [facility] [address] [place] [address] Monocytes/100 WBC (Bld) 8.8 % Normal 2.0 - 10.[address] [facility] Comment on above: Performed By: #### U AMIC #### [facility] [address] [place] [address] Neutrophils (Bld) [#/Vol] 5.13 10*3/uL Normal 1.20 - 7.70 [facility] Comment on above: Performed By: #### U AMIC #### [facility] [address] [place] [address] Neutrophils/100 WBC (Bld) 56.9 % Normal 40.0 - 80.0 [facility] Comment on above: Performed By: #### U AMIC #### [facility] [address] [place] [address] NUCLEATED RBC 0.0 /100 WBC Normal 0.0-0.0 [facility] Comment on above: Performed By: #### U AMIC #### [facility] [address] [place] [address] Platelets (Bld) [#/Vol] 477 10*3/uL High 150 - 450 [facility] Comment on above: Performed By: #### U AMIC #### [facility] [address] [place] [address] RBC 3.38 x10E12/L Low 4.00 - 5.20 [facility] Comment on above: Performed By: #### U AMIC #### [facility] [address] [place] [address] WBC (Bld) [#/Vol] 9.0 10*3/uL Normal 4.4 - 11.3 [facility] Comment on above: Performed By: #### U AMIC #### [facility] [address] [place] [address] COMPREHENSIVE PANELon 2020 Albumin [Mass/Vol] 4.0 g/dL Normal 3.4 - 5.0 [facility] Comment on above: Performed By: #### B MP #### [facility] [address] [place] [address] ALP [Catalytic activity/Vol] 65 U/L Normal 33 - 110 [facility] Comment on above: Performed By: #### B MP #### [facility] [address] [place] [address] ALT [Catalytic activity/Vol] 4 U/L Low 7 - 45 [facility] Comment on above: Result Comment: Sarah ents treated with Sulfasalazine may generate falsely decreased results for ALT. Performed By: #### B MP #### [facility] [address] [place] [address] Anion gap [Moles/Vol] 15 mmol/L Normal 10 - 20 [facility] Comment on above: Performed By: #### B MP #### [facility] [address] [place] [address] AST [Catalytic activity/Vol] 11 U/L Normal 9 - 39 [facility] Comment on above: Performed By: #### B MP #### [facility] [address] [place] [address] Bilirubin [Mass/Vol] 0.4 mg/dL Normal 0.0 - 1.2 [facility] Comment on above: Performed By: #### B MP #### [facility] [address] [place] [address] Calcium [Mass/Vol] 9.1 mg/dL Normal 8.6 - 10.6 [facility] Comment on above: Performed By: #### B MP #### [facility] [address] [place] [address] Chloride [Moles/Vol] 104 mmol/L Normal 98 - 107 [facility] Comment on above: Performed By: #### B MP #### [facility] [address] [place] [address] Creatinine [Mass/Vol] 0.69 mg/dL Normal 0.50 - 1.05 [facility] Comment on above: Performed By: #### B MP #### [facility] [address] [place] [address] GFR- AM. >60 Normal >60 [facility] Comment on above: Result Comment: CALC ULATIONS OF ESTIMATED GFR ARE PERFORMED USING THE MDRD STUDY EQUATION FOR THE IDMS-TRACEABLE CREATININE METHODS. CLIN CHEM 2007;53:766-72 Performed By: #### B MP #### [facility] [address] [place] [address] GFR-NON AM. >60 Normal >60 [facility] Comment on above: Performed By: #### B MP #### [facility] [address] [place] [address] Glucose [Mass/Vol] 79 mg/dL Normal 74 - 99 [facility] Comment on above: Performed By: #### B MP #### [facility] [address] [place] [address] HCO3 (Bld) [Moles/Vol] 23 mmol/L Normal 21 - 32 [facility] Comment on above: Performed By: #### B MP #### [facility] [address] [place] [address] Potassium [Moles/Vol] 3.8 mmol/L Normal 3.5 - 5.3 [facility] Comment on above: Performed By: #### B MP #### [facility] [address] [place] [address] Protein [Mass/Vol] 6.4 g/dL Normal 6.4 - 8.2 [facility] Comment on above: Performed By: #### B MP #### [facility] [address] [place] [address] Sodium [Moles/Vol] 138 mmol/L Normal 136 - 145 [facility] Comment on above: Performed By: #### B MP #### [facility] [address] [place] [address] Urea nitrogen [Mass/Vol] 8 mg/dL Normal 6 - 23 [facility] Comment on above: Performed By: #### B MP #### [facility] [address] [place] [address] COOX PANEL,VENOUSon 07-11-20 21 CO HGB 5.0 % Abnormal [facility] Comment on above: Result Comment: REF VALUES NONSMOKERS 0.5-1.5% SMOKERS 0.5-10.0% Performed By: #### C OOXV ####[id number] [place] [address] MET HGB 0.6 % Normal 0.0 - 1.5 [facility] Comment on above: Performed By: #### C OOXV ####[id number] [place] [address] CORONAVIRUS 2019 BY PCRon SARS-CoV-2 (COVID-19) RNA SUZI+probe Ql (Unsp spec) Not detected Normal Not Detected [facility] Comment on above: Result Comment: . This test has received FDA Emergency Use Authorization (EUA) and has been verified by [facility] ([facility]). This test is only authorized for the duration of time that circumstances exist to justify the authorization of the emergency use of in vitro diagnostic tests for the detection of SARS-CoV-2 virus and/or diagnosis of COVID-19 infection under section 564(b)(1) of the Act, 21 U.S.C. 360bbb-3(b)(1), unless the authorization is terminated or revoked sooner. [facility] is certified under CLIA-88 as qualified to perform high complexity testing. Testing is performed in the [facility] located at [address] [place] [address]. SARS-CoV-2/Flu/RSV Multiplex Test: Fact sheet for providers: https://www.fda.gov/media/280297/download Fact sheet for patients: https://www.fda.gov/media/639912/download Performed By: #### U AMIC #### [address] [place] [address] Lab Specimen Source Nasal, Nasopharyngeal Normal [facility] Comment on above: Performed By: #### U AMIC #### [facility] [address] [place] [address] DATE OF SYMPTOM ONSET [YYYYMMDD]? [id number] Normal [facility] Comment on above: Performed By: #### U AMIC #### [address] [place] [address] Consult-Urologyon 07-11-2021 Consult-Urology Service: Service: Urology Consult: Consult requested by (Attending Name): ED Reason: Patient of Dr. Ponsky with know L ureteral stricture now with [...] Known Allergies: Objective: Objective Information: T PRBPSpO2 Value36.898728325/9799% Date/Time07/11 13: 13: 13:019 13:019 13:01 Range(36.8C - 36.8C ) (103 - [...] afebrile, normotensi (more content not included)... Normal [facility] Covid 19 Resultson 1 SARS-CoV-2 (COVID-19) RNA [...] You may also be contacted by the [facility] to see if any of your close [...] or Naproxen (Aleve) can also be used. Eqjx-gyh-cdsyakr cough and cold medicines can be used according to the instructions on the package. Some uhzw-ltj-fdgqayd medicines also contain acetaminophen. 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 Avoid touching your eyes, nose, and mouth [...] 24 liu (more content not included)... Normal [facility] Provider Note - ED v3on 090 Provider Note - ED v3 Provider Note: [...] SIGNIFICANT EVENTS: (more content not included)... Normal [facility] Risk Screen - Adult Emergenc yon 07-11-2021 Risk Screen - Adult Emergency Preferred Language: Preferred Language: Preferred Language for Discussing Health Care (patient/designee)Pau hicks Advanced Directives: Advance Directive/DNRno Family Violence Adult: [...] material; verbal instruction Cultural Considerationsnone Developmental Considerationsnone Synagogue Considerationsnone Learning Assessment (Other Learner): Learning Assessment (Other Learner): Other learner availableno Pressure Injury/TB/Substance: Pressure Injury: Pressure Injury Present on Admissionno Do you have a coughno Smoking Statusnever smoker Alcohol Usedenies Resources OfferedThrive consult ( for ED's that have services) Admission Risk Screen: Significant IndicatorsComplete CAGE: CAGE: [place] an [place] [place]): yes C: Have you ever felt you needed to Cut down on your drinking: no A: Have people Annoyed you by criticizing your drinking: no G: Have you ever felt Guilty about drinking: no E: Have you ever felt you needed a drink first 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) to steady your nerves or to get rid of hangover: no Electronic Signatures: Elkin Almanza (RN) (Signed 11-Jul-2021 20:40) Authored: Preferred Language, Advanced Directives, Family Violence Adult, Learning Assessment (Patient), Learning Assessment (Other Learner), Pressure Injury/TB/Substance, Pressure Injury, CAGE Last Updated: 11-Jul-2021 20:40 by Elkin Almanza (JAMAL) Normal [facility] Triage - EDon 07-11-2021 Triage - ED [...] BMI (kg/m2): 17.088 Calculated BSA (m2) 1.49 [place] Coma Scale: Best Eye Response: (E4) spontaneous Best Motor Response: (M6) obeys commands Best Verbal Response: (V5) oriented [place] Score: 15 [place] Assessment Qualifiers: patient not sedated/intubated and no [...] Medical History, Active Electronic Signatures: David Riggins (JAMAL) (Signed 11-Jul-2021 13:06) Entered: Risk Screens, Pain, Travel History, Chart Review, Past Medical History Authored: Quick Triage, Risk Screens, Pain, Travel History, Chart Review, Past Medical History Last Updated: 11-Jul-2021 13:06 by David Riggins) Normal [facility] UA MICROSCOPICon 07-11-2021 BACTERIA 1+ /HPF Abnormal [facility] Comment on above: Performed By: #### U AMIC #### [facility] [address] [place] [address] Mucus Ql (Urine sed) 4+ /LPF Normal [facility] Comment on above: Performed By: #### U AMIC #### [facility] [address] [place] [address] RBC 9 /HPF Abnormal 0-5 [facility] Comment on above: Performed By: #### U AMIC #### [facility] [address] [place] [address] WBC (U) [#/Vol] /uL Abnormal 0-5 [facility] Comment on above: Performed By: #### U AMIC #### [facility] [address] [place] [address] WBC CLUMPS OCC Normal [facility] Comment on above: Performed By: #### U AMIC #### [facility] [address] [place] [address] Lab Specimen Source Normal [facility] Comment on above: Performed By: #### U AMIC #### [facility] [address] [place] [address] Performed By: #### B MP #### [facility] [address] [place] [address] URINALYSIS WITH CULTURE IF I NDICATEDon 07-11-2021 Appearance (U) HAZY Normal CLEAR [facility] Comment on above: Performed By: #### B MP #### [facility] [address] [place] [address] Bilirubin Ql (U) Negative Normal NEGATIVE [facility] Comment on above: Performed By: #### B MP #### [facility] [address] [place] [address] Color (U) YELLOW Normal STRAW,YELLO W [facility] Comment on above: Performed By: #### B MP #### [facility] [address] [place] [address] Glucose Ql (U) Negative Normal NEGATIVE [facility] Comment on above: Performed By: #### B MP #### [facility] [address] [place] [address] Hemoglobin Ql (U) SMALL (1+) Abnormal NEGATIVE [facility] Comment on above: Performed By: #### B MP #### [facility] [address] [place] [address] Ketones Ql (U) Negative Normal NEGATIVE [facility] Comment on above: Performed By: #### B MP #### [facility] [address] [place] [address] Leukocyte esterase Test strip Ql (U) LARGE (3+) Abnormal NEGATIVE [facility] Comment on above: Performed By: #### B MP #### [facility] [address] [place] [address] Nitrite Ql (U) Positive Abnormal NEGATIVE [facility] Comment on above: Performed By: #### B MP #### [facility] [address] [place] [address] pH (U) 6.0 [pH] Normal 5.0 - 8.0 [facility] Comment on above: Performed By: #### B MP #### [facility] [address] [place] [address] Protein Ql (U) 100 (2+) Abnormal NEGATIVE [facility] Comment on above: Performed By: #### B MP #### [facility] [address] [place] [address] Specific gravity (U) [Rel density] 1.010 Normal 1.005 - 1.035 [facility] Comment on above: Performed By: #### B MP #### [facility] [address] [place] [address] Urobilinogen (U) [Mass/Vol] mg/dL Normal 0.0 - 1.9 [facility] Comment on above: Performed By: #### B MP #### [facility] [address] [place] [address] URINE CULTURE,BACTERIALon URINE CULTURE,BACTERIAL PATIENT: LALY NAVAS LOCATION: [place] [address] BILL#: [id number] : 86 AGE: SEX: F ORDERED BY: LATANYA CUELLAR SOURCE: URINE COLLECTED: 07/11/21 15:06 ANTIBIOTICS AT BINA.: RECEIVED : 07/11/21 16:38 SITE: [facility] [place] [facility] URINE CULTURE,BACTERIAL FINAL 07/13/21 13:34 [...] DOSE DEPENDENT NS=NONSUSCEPTIBLE X=REPORTED IN ERROR Normal [facility] Comment on above: Performed By: #### [facility] #### [facility] [address] [place] [address] VENOUS FULL PANELon 07-11-20 21 Anion gap [Moles/Vol] 8 mmol/L Low 10 - 25 [facility] Comment on above: Performed By: #### V FPA3 ####[id number] [place] [address] BASE EXCESS-BLOOD 0.3 mmol/L Normal -2.0 - 3.0 [facility] Comment on above: Performed By: #### V FPA3 ####[id number] [place] [address] BICARB, CALCULATED 24.6 mmol/L Normal 22.0 - 26.0 [facility] Comment on above: Performed By: #### V FPA3 ####[id number] [place] [address] CALCIUM,IONIZED 1.21 mmol/L Normal 1.10 - 1.33 [facility] Comment on above: Performed By: #### V FPA3 ####[id number] [place] [address] Chloride [Moles/Vol] 106 mmol/L Normal 98 - 107 [facility] Comment on above: Performed By: #### V FPA3 ####[id number] [place] [address] Glucose [Mass/Vol] 84 mg/dL Normal 74 - 99 [facility] Comment on above: Performed By: #### V FPA3 ####[id number] [place] [address] Hematocrit (Bld) [Volume fraction] 38.0 % Normal 36.0 - 46.0 [facility] Comment on above: Performed By: #### V FPA3 ####[id number] [place] [address] HGB,CALCULATED 12.9 g/dL Normal 12.0 - 16.0 [facility] Comment on above: Performed By: #### V FPA3 ####[id number] [place] [address] Lactate [Moles/Vol] 0.8 mmol/L Normal 0.4 - 2.0 [facility] Comment on above: Performed By: #### V FPA3 ####[id number] [place] [address] Oxygen (Bld) [Partial pressure] 37 mm[Hg] Normal 35 - 45 [facility] Comment on above: Performed By: #### V FPA3 ####[id number] [place] [address] PATIENT TEMPERATURE 37.0 degrees C Normal [facility] Comment on above: Result Comment: NOTE : PATIENT RESULTS ARE NOT CORRECTED FOR TEMPERATURE. Performed By: #### V FPA3 ####[id number] [place] [address] PCO2 38 mmHg Low 41 - 51 [facility] Comment on above: Performed By: #### V FPA3 ####[id number] [place] [address] pH (Bld) 7.42 [pH] Normal 7.33 - 7.43 [facility] Comment on above: Performed By: #### V FPA3 ####[id number] [place] [address] Potassium [Moles/Vol] 3.8 mmol/L Normal 3.5 - 5.3 [facility] Comment on above: Performed By: #### V FPA3 ####[id number] [place] [address] SO2 76 % High 45 - 75 [facility] Comment on above: Performed By: #### V FPA3 ####[id number] [place] [address] Sodium [Moles/Vol] 135 mmol/L Low 136 - 145 [facility] Comment on above: Performed By: #### V FPA3 ####[id number] [place] [address] CONVERT NEPHROSTOMY CATH-NEP HROURETERAL CATH,PERC INCLUDE NEPHROSTO/URETEROGRAM [...] or ureteral stent. COMPARISON: None. ACCESSION NUMBER(S): [id number]; [id number]; [id number] ORDERING CLINICIAN: POLO PLUMMER TECHNIQUE: INTERVENTIONALIST(S): Attending: [...] Maximum sterile barrier technique was implemented. Initial byproducts supervisor fluoroscopic image demonstrates an intact percutaneous nephrostomy tube in satisfactory position. ANTEGRADE PYELOGRAM FINDINGS: Dilute contrast was then injected through the existing percutaneous nephrostomy tube. This demonstrated Initial byproducts supervisor fluoroscopic spot image demonstrates an intact existing [...] removed over the wire. Subsequently, a 5 Chadian Kumpe catheter was advanced over the wire and the wire catheter combination were advanced into the distal ureter attempt was made to advanced wire past the stricture, which was unsuccessful. The Kumpe catheter was removed and a 9 Chadian x 30 cm peel-away sheath was advanced [...] and a 4 mm x 4 mm [place] balloon was advanced over the wire. And balloon dilatation of the distal left ureter was performed under fluoroscopy. An appropriate measurement was taken and a new 8.5 Fr x 24 cm nephroureteral stent/catheter was subsequently inserted over the guidewire. The guidewire and nephrostomy inner stylet were removed. The self-formin (more content not included)... Normal [facility] DIL/NEPH/UREon 07-02-2021 DIL/NEPH/URE Patient Name: LALY NAVAS [...] or ureteral stent. COMPARISON: None. ACCESSION NUMBER(S): [id number]; [id number]; [id number] ORDERING CLINICIAN: POLO PLUMMER TECHNIQUE: INTERVENTIONALIST(S): Attending: [...] Maximum sterile barrier technique was implemented. Initial byproducts supervisor fluoroscopic image demonstrates an intact percutaneous nephrostomy tube in satisfactory position. ANTEGRADE PYELOGRAM FINDINGS: Dilute contrast was then injected through the existing percutaneous nephrostomy tube. This demonstrated Initial byproducts supervisor fluoroscopic spot image demonstrates an intact existing [...] removed over the wire. Subsequently, a 5 Chadian Kumpe catheter was advanced over the wire and the wire catheter combination were advanced into the distal ureter attempt was made to advanced wire past the stricture, which was unsuccessful. The Kumpe catheter was removed and a 9 Chadian x 30 cm peel-away sheath was advanced [...] and a 4 mm x 4 mm [place] balloon was advanced over the wire. And balloon dilatation of the distal left ureter was performed under fluoroscopy. An appropriate measurement was taken and a new 8.5 Fr x 24 cm nephroureteral stent/catheter was subsequently inserted over the guidewire. The guidewire and nephrostomy inner stylet were removed. The self-formin (more content not included)... Normal [facility] DIL/URETERon 07-02-2021 DIL/URETER Patient Name: LALY NAVAS [...] or ureteral stent. COMPARISON: None. ACCESSION NUMBER(S): [id number]; [id number]; [id number] ORDERING CLINICIAN: POLO PLUMMER TECHNIQUE: INTERVENTIONALIST(S): Attending: [...] Maximum sterile barrier technique was implemented. Initial byproducts supervisor fluoroscopic image demonstrates an intact percutaneous nephrostomy tube in satisfactory position. ANTEGRADE PYELOGRAM FINDINGS: Dilute contrast was then injected through the existing percutaneous nephrostomy tube. This demonstrated Initial byproducts supervisor fluoroscopic spot image demonstrates an intact existing [...] removed over the wire. Subsequently, a 5 Chadian Kumpe catheter was advanced over the wire and the wire catheter combination were advanced into the distal ureter attempt was made to advanced wire past the stricture, which was unsuccessful. The Kumpe catheter was removed and a 9 Chadian x 30 cm peel-away sheath was advanced [...] and a 4 mm x 4 mm [place] balloon was advanced over the wire. And balloon dilatation of the distal left ureter was performed under fluoroscopy. An appropriate measurement was taken and a new 8.5 Fr x 24 cm nephroureteral stent/catheter was subsequently inserted over the guidewire. The guidewire and nephrostomy inner stylet were removed. The self-formin (more content not included)... Normal [facility] Office Visit (Urology)on Follow-up visit Orders SocHx: Current smoker Tobacco Use Screening; Status:Complete; Done: [id number] Perform:Not Applicable;Ordered; For:SocHx: Current smoker; Ordered By:Beth [...] Chief Complaint left NT History of Present [id number] year old female diagnosed with cervical cancer [...] Oral T (more content not included)... Normal [facility] 10-17-2020 UC ORGANISM 1: NO SIGNIFICANT GROWTH Normal [facility] Comment on above: Performed By: #### M 120.0100 #### ML - LABORATORY [address] [place] [address] CA 125on 04-26-2020 CA 125 21 U/mL Normal <39 [facility] Comment on above: Performed By: #### C A125 #### [facility] Routine Lab [address], [place] [address] GC/Chlamydia Amp, Uron 04-06 Chlamydia Amplif, Ur Normal [facility] [place] [facility] Lab Comment on above: Result Comment: Nega tive for For screening asymptomatic women, a vaginal swab specimen (APTIMA vaginal swab 775361) is optimal. Urine specimens have reduced sensitivity for Chlamydia trachomatis or Neisseria gonorrhoeae infection in female patients without symptoms. This test was developed and its performance characteristics determined by [facility] [place] ([facility]). It has not been cleared or approved by the FDA. [facility] is regulated under CLIA as qualified to perform high complexity testing. This test is used for clinical purposes. It should not be regarded as investigational or for research. Chlamydia For screening asymptomatic women, a vaginal swab specimen (APTIMA vaginal swab 576867) is optimal. Urine specimens have reduced sensitivity for Chlamydia trachomatis or Neisseria gonorrhoeae infection in female patients without symptoms. This test was developed and its performance characteristics determined by [facility] [place] ( [facility]). It has not been cleared or approved by the FDA. RT [facility] is regulated under CLIA as qualified to perform high complexity testing. This test is used for clinical purposes. It should not be regarded as investigational or for research. trachomatis by For screening asymptomatic women, a vaginal swab specimen (APTIMA vaginal swab 685580) is optimal. Urine specimens have reduced sensitivity for Chlamydia trachomatis or Neisseria gonorrhoeae infection in female patients without symptoms. This test was developed and its performance characteristics determined by [facility] [place] ([facility]). It has not been cleared or approved by the FDA. [facility] is regulated under CLIA as qualified to perform high complexity testing. This test is used for clinical purposes. It should not be regarded as investigational or for research. amplification. For screening asymptomatic women, a vaginal swab specimen (APTIMA vaginal swab 464064) is optimal. Urine specimens have reduced sensitivity for Chlamydia trachomatis or Neisseria gonorrhoeae infection in female patients without symptoms. This test was developed and its performance characteristics determined by [facility] and [facility] [place] ([facility]). It has not been cleared or approved by the FDA. [facility] is regulated under CLIA as qualified to perform high complexity testing. This test is used for clinical purposes. It should not be regarded as investigational or for research. Performed By: #### U GCCT #### [facility] Routine Lab [address] [address] GC Amplification, Ur NGNEG Normal [facility] [place] [facility] Reference Lab Comment on above: Performed By: #### U GCCT #### [facility] Routine Lab [address], [place] [address] GC/Chlamydia Amp, Uron 04-03 Chlamydia Amplif, Ur Normal [facility] [place] [facility] Comment on above: Result Comment: Nega tive for For screening asymptomatic women, a vaginal swab specimen (APTIMA vaginal swab 542625) is optimal. Urine specimens have reduced sensitivity for Chlamydia trachomatis or Neisseria gonorrhoeae infection in female patients without symptoms. This test was developed and its performance characteristics determined by [facility] and [facility] [place] ([facility]). It has not been cleared or approved by the FDA. [facility] is regulated under CLIA as qualified to perform high complexity testing. This test is used for clinical purposes. It should not be regarded as investigational or for research. Chlamydia For screening asymptomatic women, a vaginal swab specimen (APTIMA vaginal swab 795973) is optimal. Urine specimens have reduced sensitivity for Chlamydia trachomatis or Neisseria gonorrhoeae infection in female patients without symptoms. This test was developed and its performance characteristics determined by [facility] [place] ( [facility]). It has not been cleared or approved by the FDA. [facility] is regulated under CLIA as qualified to perform high complexity testing. This test is used for clinical purposes. It should not be regarded as investigational or for research. trachomatis by For screening asymptomatic women, a vaginal swab specimen (APTIMA vaginal swab 614901) is optimal. Urine specimens have reduced sensitivity for Chlamydia trachomatis or Neisseria gonorrhoeae infection in female patients without symptoms. This test was developed and its performance characteristics determined by [facility] [place] ([facility]). It has not been cleared or approved by the FDA. [facility] is regulated under CLIA as qualified to perform high complexity testing. This test is used for clinical purposes. It should not be regarded as investigational or for research. amplification. For screening asymptomatic women, a vaginal swab specimen (APTIMA vaginal swab 876945) is optimal. Urine specimens have reduced sensitivity for Chlamydia trachomatis or Neisseria gonorrhoeae infection in female patients without symptoms. This test was developed and its performance characteristics determined by [facility] [place] ( [facility]). It has not been cleared or approved by the FDA. [facility] is regulated under CLIA as qualified to perform high complexity testing. This test is used for clinical purposes. It should not be regarded as investigational or for research. Performed By: #### U GCCT #### [facility] Routine Lab [address], [place] [address] GC Amplification, Ur NGNEG Normal [facility] [place] [facility] Comment on above: Performed By: #### U GCCT #### [facility] Routine Lab [address], [place] [address] Vital Signs Date Time Vital Sign Value Performing Clinician Facility 04-09-2025 02:52-0400 Body temperature 98 [degF] Dr. Jatin Garcia MD [facility] 04-09-2025 02:52-0400 Diastolic blood pressure 72 mm[Hg] Dr. Jatin Garcia MD Work Phone: [facility] 04-09-2025 02:52-0400 Heart rate 81 /min Dr. Jatin Garcia MD Work Phone: 1(532)210-005[address] [place] [address] 04-09-2025 02:52-0400 Respiratory rate 14 /min Dr. Jatin Garcia MD Work Phone: 2(211)[phone] [place] [address] 04-09-2025 02:52-0400 SaO2% (BldA) [Mass fraction] 98 % Dr. Jatin Garcia MD Work Phone: 7(303)[phone] [place] [address] 04-09-2025 02:52-0400 Systolic blood pressure 118 mm[Hg] Dr. Jatin Garcia MD Work Phone: 7(240)[phone] [place] [address] 04-09-2025 00:20-0400 Body height 165.[address] Jatin Garcia MD Work Phone: 0(614)[phone] [place] [address] 04-09-2025 00:20-0400 Body mass index (BMI) [Ratio] 22.4 kg/m2 Dr. Jatin Garcia MD Work Phone: 8(561)[phone] [place] [address] 04-09-2025 00:20-0400 Body weight [address] Jatin Garcia MD Work Phone: 2(858)[phone] [place] [address] 03-15-2025 19:03-0400 Diastolic Blood Pressure Non-Invasive 91 mm[Hg] GUCCI ALEXANDRE MD [facility] 03-15-2025 19:03-0400 Heart rate 77 /min GUCCI ALEXANDRE MD [facility] 03-15-2025 19:03-0400 Respiratory rate 18 /min GUCCI ALEXANDRE MD [facility] 03-15-2025 19:03-0400 Systolic Blood Pressure Non-Invasive 158 mm[Hg] GUCCI ALEXANDRE MD [facility] 03-15-2025 16:48-0400 Diastolic Blood Pressure Non-Invasive 87 mm[Hg] GUCCI ALEXANDRE MD [facility] 03-15-2025 16:48-0400 Heart rate 67 /min GUCCI ALEXANDRE MD [facility] 03-15-2025 16:48-0400 Respiratory rate 18 /min GUCCI ALEXANDRE MD [facility] 03-15-2025 16:48-0400 Systolic Blood Pressure Non-Invasive 144 mm[Hg] GUCCI ALEXANDRE MD [facility] 03-15-2025 14:52-0400 Body temperature 98.42 [degF] GUCCI ALEXANDRE MD [facility] 03-15-2025 14:52-0400 Body weight 53.1 kg GUCCI ALEXANDRE MD [address] [place] [address] 03-15-2025 14:52-0400 Diastolic Blood Pressure Non-Invasive 86 mm[Hg] GUCCI ALEXANDRE MD [address] [place] [address] 03-15-2025 14:52-0400 Heart rate 69 /min GUCCI ALEXANDRE MD [facility] 03-15-2025 14:52-0400 Respiratory rate 18 /min GUCCI ALEXANDRE MD [facility] 03-15-2025 14:52-0400 Systolic Blood Pressure Non-Invasive 130 mm[Hg] GUCCI ALEXANDRE MD [facility] 03-09-2025 16:36-0400 Diastolic Blood Pressure Non-Invasive 92 mm[Hg] DELMAR MICHAEL DO [facility] 03-09-2025 16:36-0400 Heart rate 57 /min DELMAR MICHAEL DO [facility] 03-09-2025 16:36-0400 Respiratory rate 18 /min DELMAR MICHAEL DO [facility] 03-09-2025 16:36-0400 Systolic Blood Pressure Non-Invasive 142 mm[Hg] DELMAR MICHAEL DO [facility] 03-09-2025 14:20-0400 Diastolic Blood Pressure Non-Invasive 86 mm[Hg] DELMAR MICHAEL DO [facility] 03-09-2025 14:20-0400 Heart rate 80 /min DELMAR MICHAEL DO [facility] 03-09-2025 14:20-0400 Respiratory rate 18 /min DELMAR MICHAEL DO [facility] 03-09-2025 14:20-0400 Systolic Blood Pressure Non-Invasive 130 mm[Hg] DELMAR MICHAEL DO [facility] 03-09-2025 12:17-0400 Body temperature 96.98 [degF] DELMAR MICHAEL DO [facility] 03-09-2025 12:17-0400 Body weight 53 kg DELMAR MICHAEL DO [facility] 03-09-2025 12:17-0400 Diastolic Blood Pressure Non-Invasive 95 mm[Hg] DELMAR MICHAEL DO [facility] 03-09-2025 12:17-0400 Heart rate 81 /min DELMAR MICHAEL DO [facility] 03-09-2025 12:17-0400 Respiratory rate 18 /min DELMAR MICHAEL DO [facility] 03-09-2025 12:17-0400 Systolic Blood Pressure Non-Invasive 134 mm[Hg] DELMAR MICHAEL DO [facility] 02-16-2025 10:00-0400 Body temperature 96.98 [degF] PINA PANTOJA LABOR CREW SUPERVISOR-SWING FRAME 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 [facility] 02-16-2025 10:00-0400 Heart rate 63 /min PINA PANTOJA LABOR CREW SUPERVISOR-SWING FRAME 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 [facility] 02-16-2025 10:00-0400 Respiratory rate 18 /min PINA PANTOJA LABOR CREW SUPERVISOR-SWING FRAME 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 [facility] 02-16-2025 10:00-0400 Systolic Blood Pressure Non-Invasive 122 mm[Hg] PINA PANTOJA LABOR CREW SUPERVISOR-SWING FRAME 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 [facility] 02-16-2025 09:40-0400 Heart rate 60 /min PINA PANTOJA LABOR CREW SUPERVISOR-SWING FRAME 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 [facility] 02-16-2025 09:40-0400 Body temperature 97.52 [degF] PINA PANTOJA LABOR CREW SUPERVISOR-SWING FRAME 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 [facility] 02-16-2025 09:40-0400 Diastolic Blood Pressure Non-Invasive 79 mm[Hg] PINA PANTOJA LABOR CREW SUPERVISOR-SWING FRAME 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 [facility] 02-16-2025 09:40-0400 Mean blood pressure 88 mm[Hg] PINA PANTOJA LABOR CREW SUPERVISOR-SWING FRAME 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 [facility] 02-16-2025 09:40-0400 Respiratory rate 16 /min PINA PANTOJA LABOR CREW SUPERVISOR-SWING FRAME 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 [facility] 02-16-2025 09:40-0400 Systolic Blood Pressure Non-Invasive 104 mm[Hg] PINA PANTOJA LABOR CREW SUPERVISOR-SWING FRAME 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 [facility] 02-16-2025 09:25-0400 Diastolic Blood Pressure Non-Invasive 71 mm[Hg] PINA PANTOJA LABOR CREW SUPERVISOR-SWING FRAME 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 [facility] 02-16-2025 09:25-0400 Mean blood pressure 83 mm[Hg] PINA PANTOJA LABOR CREW SUPERVISOR-SWING FRAME 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 [facility] 02-16-2025 09:25-0400 Systolic Blood Pressure Non-Invasive 107 mm[Hg] PINA PANTOJA LABOR CREW SUPERVISOR-SWING FRAME 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 [facility] 02-16-2025 09:25-0400 Heart rate 67 /min PINA PANTOJA LABOR CREW SUPERVISOR-SWING FRAME 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 [facility] 02-16-2025 09:25-0400 Respiratory rate 16 /min PINAALICE PANTOJA LABOR CREW SUPERVISOR-SWING FRAME 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 [facility] 02-16-2025 09:10-0400 Mean blood pressure 101 mm[Hg] PINA PANTOJA LABOR CREW SUPERVISOR-SWING FRAME 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 [facility] 02-16-2025 09:10-0400 Blood Pressure Cuff Size PINA PANTOJA LABOR CREW SUPERVISOR-SWING FRAME 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 [facility] 02-16-2025 09:10-0400 Blood Pressure Location PINA PANTOJA LABOR CREW SUPERVISOR-SWING FRAME 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 [facility] 02-16-2025 09:10-0400 Blood Pressure Method PINA PANTOJA LABOR CREW SUPERVISOR-SWING FRAME 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 [facility] 02-16-2025 09:10-0400 Body temperature 97.52 [degF] PINA PANTOJA LABOR CREW SUPERVISOR-SWING FRAME 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 [facility] 02-16-2025 09:00-0400 Respiratory Rate - Anes 4 br/min PINA PANTOJA LABOR CREW SUPERVISOR-SWING FRAME 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 [facility] 02-16-2025 08:55-0400 Respiratory Rate - Anes 19 br/min PINA PANTOJA LABOR CREW SUPERVISOR-SWING FRAME 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 [facility] 02-16-2025 08:50-0400 Respiratory Rate - Anes 10 br/min PINA PANTOJA LABOR CREW SUPERVISOR-SWING FRAME 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 [facility] 02-16-2025 06:37-0400 Body height 167.6 cm PINA PANTOJA LABOR CREW SUPERVISOR-SWING FRAME 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 [facility] 02-16-2025 06:37-0400 Body weight 110.7 kg PINA PANTOJA LABOR CREW SUPERVISOR-SWING FRAME 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 [facility] 02-16-2025 06:37-0400 Heart rate 70 /min PINA PANTOJA LABOR CREW SUPERVISOR-SWING FRAME 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 [facility] 12-22-2024 12:10-0500 Body temperature 96.98 [degF] NASRIN ISABEL MD [facility] 12-22-2024 12:10-0500 Diastolic Blood Pressure Non-Invasive 66 mm[Hg] NASRIN ISABEL MD [facility] 12-22-2024 12:10-0500 Heart rate 54 /min NASRIN ISABEL MD [facility] 12-22-2024 12:10-0500 Respiratory rate 16 /min NASRIN ISABEL MD [facility] 12-22-2024 12:10-0500 Systolic Blood Pressure Non-Invasive 106 mm[Hg] NASRIN ISABEL MD [facility] 12-22-2024 11:54-0500 Body temperature 97.34 [degF] NASRIN ISABEL MD [facility] 12-22-2024 11:54-0500 Diastolic Blood Pressure Non-Invasive 77 mm[Hg] NASRIN ISABEL MD [facility] 12-22-2024 11:54-0500 Heart rate 53 /min NASRIN ISABEL MD [facility] 12-22-2024 11:54-0500 Mean blood pressure 89 mm[Hg] NASRIN ISABEL MD [facility] 12-22-2024 11:54-0500 Respiratory rate 18 /min NASRIN ISABEL MD [facility] 12-22-2024 11:54-0500 Systolic Blood Pressure Non-Invasive 117 mm[Hg] NASRIN ISABEL MD [facility] 12-22-2024 11:35-0500 Diastolic Blood Pressure Non-Invasive 80 mm[Hg] NASRIN ISABEL MD [facility] 12-22-2024 11:35-0500 Heart rate 51 /min NASRIN ISABEL MD [facility] 12-22-2024 11:35-0500 Mean blood pressure 89 mm[Hg] NASRIN ISABEL MD [facility] 12-22-2024 11:35-0500 Respiratory rate 18 /min NASRIN ISABEL MD [facility] 12-22-2024 11:35-0500 Systolic Blood Pressure Non-Invasive 111 mm[Hg] NASRIN ISABEL MD [facility] 12-22-2024 11:20-0500 Body temperature 97.16 [degF] NASRIN ISABEL MD [facility] 12-22-2024 11:20-0500 Heart rate 76 /min NASRIN ISABEL MD [facility] 12-22-2024 11:20-0500 Mean blood pressure 108 mm[Hg] NASRIN ISABEL MD [facility] 12-22-2024 11:15-0500 Respiratory Rate - Anes 0 br/min NASRIN ISABEL MD [facility] 12-22-2024 11:10-0500 Respiratory Rate - Anes 6 br/min NASRIN ISABEL MD [facility] 12-22-2024 11:05-0500 Respiratory Rate - Anes 13 br/min NASRIN ISABEL MD [facility] 12-22-2024 10:45-0500 Body temperature 96.8 [degF] NASRIN ISABEL MD [facility] 12-22-2024 10:30-0500 Body temperature 96.8 [degF] NASRIN ISABEL MD [facility] 12-22-2024 10:15-0500 Body temperature 96.8 [degF] NASRIN ISABEL MD [facility] 12-22-2024 08:08-0500 Body height 167.6 cm NASRIN ISABEL MD [facility] 12-22-2024 08:08-0500 Body weight 53.6 kg NASRIN ISABEL MD [facility] 12-22-2024 08:08-0500 Heart rate 57 /min NASRIN ISABEL MD [facility] 08-11-2024 12:08-0400 Body temperature 96.62 [degF] NASRIN ISABEL MD [facility] 08-11-2024 12:08-0400 Diastolic Blood Pressure Non-Invasive 94 mm[Hg] NASRIN ISABEL MD [facility] 08-11-2024 12:08-0400 Heart rate 80 /min NASRIN ISABEL MD [facility] 08-11-2024 12:08-0400 Heart rate 64 /min NASRIN ISABEL MD [facility] 08-11-2024 12:08-0400 Respiratory rate 16 /min NASRIN ISABEL MD [facility] 08-11-2024 12:08-0400 Systolic Blood Pressure Non-Invasive 137 mm[Hg] NASRIN ISABEL MD [facility] 08-11-2024 11:44-0400 Heart rate 59 /min NASRIN ISABEL MD [facility] 08-11-2024 11:35-0400 Body temperature 96.8 [degF] NASRIN ISABEL MD [facility] 08-11-2024 11:35-0400 Diastolic Blood Pressure Non-Invasive 97 mm[Hg] NASRIN ISABEL MD [facility] 08-11-2024 11:35-0400 Heart rate 61 /min NASRIN ISABEL MD [facility] 08-11-2024 11:35-0400 Mean blood pressure 108 mm[Hg] NASRIN ISABEL MD [facility] 08-11-2024 11:35-0400 Respiratory rate 16 /min NASRIN ISABEL MD [facility] 08-11-2024 11:35-0400 Systolic Blood Pressure Non-Invasive 127 mm[Hg] NASRIN ISABEL MD [facility] 08-11-2024 11:20-0400 Diastolic Blood Pressure Non-Invasive 99 mm[Hg] NASRIN ISABEL MD [facility] 08-11-2024 11:20-0400 Mean blood pressure 113 mm[Hg] NASRIN ISABEL MD [facility] 08-11-2024 11:20-0400 Respiratory rate 16 /min NASRIN ISABEL MD [facility] 08-11-2024 11:20-0400 Systolic Blood Pressure Non-Invasive 138 mm[Hg] NASRIN ISABEL MD [facility] 08-11-2024 10:50-0400 Body temperature 97.16 [degF] NASRIN ISABEL MD [facility] 08-11-2024 10:40-0400 Respiratory Rate - Anes 0 br/min NASRIN ISABEL MD [facility] 08-11-2024 10:35-0400 Body temperature 96.82 [degF] NASRIN ISABEL MD [facility] 08-11-2024 10:35-0400 Respiratory Rate - Anes 9 br/min NASRIN ISABEL MD [facility] 08-11-2024 10:30-0400 Body temperature 96.73 [degF] NASRIN ISABEL MD [facility] 08-11-2024 10:30-0400 Respiratory Rate - Anes 9 br/min NASRIN ISABEL MD [facility] 08-11-2024 10:25-0400 Body temperature 96.8 [degF] NASRIN ISABEL MD [facility] 08-11-2024 08:31-0400 Body height 163.8 cm NASRIN ISABEL MD [facility] 08-11-2024 08:31-0400 Body weight 59.5 kg NASRIN ISABEL MD [facility] 08-11-2024 08:31-0400 Heart rate 72 /min NASRIN ISABEL MD [facility] 08-06-2024 07:07-0400 Blood Pressure Cuff Size NASRIN ISABEL MD [facility] 08-06-2024 07:07-0400 Blood Pressure Location NASRIN ISABEL MD [facility] 08-06-2024 07:07-0400 Blood Pressure Method NASRIN ISABEL MD [facility] 08-06-2024 07:07-0400 Body height 165 cm NASRIN ISABEL MD [facility] 08-06-2024 07:07-0400 Body temperature 98.06 [degF] NASRIN ISABEL MD [facility] 08-06-2024 07:07-0400 Body weight 59.8 kg NASRIN ISABEL MD [facility] 08-06-2024 07:07-0400 Body weight 21.97 kg/m2 NASRIN ISABEL MD [facility] 08-06-2024 07:07-0400 Diastolic Blood Pressure Non-Invasive 75 mm[Hg] NASRIN ISABEL MD [facility] 08-06-2024 07:07-0400 Heart rate 64 /min NASRIN ISABEL MD [facility] 08-06-2024 07:07-0400 Systolic Blood Pressure Non-Invasive 151 mm[Hg] NASRIN ISABEL MD [facility] 06-09-2024 10:50-0400 Body temperature 96.98 [degF] NASRIN ISABEL MD [facility] 06-09-2024 10:50-0400 Diastolic Blood Pressure Non-Invasive 86 mm[Hg] NASRIN ISABEL MD [facility] 06-09-2024 10:50-0400 Heart rate 58 /min NASRIN ISABEL MD [facility] 06-09-2024 10:50-0400 Respiratory rate 18 /min NASRIN ISABEL MD [facility] 06-09-2024 10:50-0400 Systolic Blood Pressure Non-Invasive 122 mm[Hg] NASRIN ISABEL MD [facility] 06-09-2024 10:40-0400 Body temperature 96.8 [degF] NASRIN ISABEL MD [facility] 06-09-2024 10:40-0400 Diastolic Blood Pressure Non-Invasive 98 mm[Hg] NASRIN ISABEL MD [facility] 06-09-2024 10:40-0400 Heart rate 59 /min NASRIN ISABEL MD [facility] 06-09-2024 10:40-0400 Mean blood pressure 108 mm[Hg] NASRIN ISABEL MD [facility] 06-09-2024 10:40-0400 Respiratory rate 16 /min NASRIN ISABEL MD [facility] 06-09-2024 10:40-0400 Systolic Blood Pressure Non-Invasive 121 mm[Hg] NASRIN ISABEL MD [facility] 06-09-2024 10:25-0400 Diastolic Blood Pressure Non-Invasive 94 mm[Hg] NASRIN ISABEL MD [facility] 06-09-2024 10:25-0400 Heart rate 54 /min NASRIN ISABEL MD [facility] 06-09-2024 10:25-0400 Mean blood pressure 108 mm[Hg] NASRIN ISABEL MD [facility] 06-09-2024 10:25-0400 Respiratory rate 16 /min NASRIN ISABEL MD [facility] 06-09-2024 10:25-0400 Systolic Blood Pressure Non-Invasive 142 mm[Hg] NASRIN ISABEL MD [facility] 06-09-2024 10:10-0400 Heart rate 57 /min NASRIN ISABEL MD [facility] 06-09-2024 10:10-0400 Mean blood pressure 111 mm[Hg] NASRIN ISABEL MD [facility] 06-09-2024 09:40-0400 Body temperature 97.16 [degF] NASRIN ISABEL MD [facility] 06-09-2024 09:35-0400 Respiratory Rate - Anes 13 br/min NASRIN ISABEL MD [facility] 06-09-2024 09:30-0400 Respiratory Rate - Anes 5 br/min NASRIN ISABEL MD [facility] 06-09-2024 09:25-0400 Respiratory Rate - Anes 6 br/min NASRIN ISABEL MD [facility] 06-09-2024 09:20-0400 Body temperature 96.73 [degF] NASRIN ISABEL MD [facility] 06-09-2024 09:15-0400 Body temperature 96.69 [degF] NASRIN ISABEL MD [facility] 06-09-2024 09:10-0400 Body temperature 96.55 [degF] NASRIN ISABEL MD [facility] 06-09-2024 06:48-0400 Body weight 21.18 kg/m2 NASRIN ISABEL MD [facility] 06-09-2024 06:46-0400 Body height 167.6 cm NASRIN ISABEL MD [facility] 06-09-2024 06:46-0400 Body weight 59.5 kg NASRIN ISABEL MD [facility] 06-09-2024 06:46-0400 Heart rate 70 /min NASRIN ISABEL MD [facility] 04-14-2024 13:47-0400 Body temperature 95.72 [degF] OLE PACE MD [facility] 04-14-2024 13:47-0400 Diastolic Blood Pressure Non-Invasive 88 mm[Hg] OLE PACE MD [facility] 04-14-2024 13:47-0400 Heart rate 54 /min OLE PACE MD [facility] 04-14-2024 13:47-0400 Reason For Taking VItal Signs OLE PACE MD [facility] 04-14-2024 13:47-0400 Respiratory rate 16 /min OLE PACE MD [facility] 04-14-2024 13:47-0400 Systolic Blood Pressure Non-Invasive 123 mm[Hg] OLE PACE MD [facility] 04-14-2024 13:40-0400 Body temperature 96.8 [degF] OLE PACE MD [facility] 04-14-2024 13:40-0400 Diastolic Blood Pressure Non-Invasive 84 mm[Hg] OLE PACE MD [facility] 04-14-2024 13:40-0400 Heart rate 53 /min OLE PACE MD [facility] 04-14-2024 13:40-0400 Mean blood pressure 92 mm[Hg] OLE PACE MD [facility] 04-14-2024 13:40-0400 Respiratory rate 16 /min OLE PACE MD [facility] 04-14-2024 13:40-0400 Systolic Blood Pressure Non-Invasive 113 mm[Hg] OLE PACE MD [facility] 04-14-2024 13:25-0400 Body temperature 97.34 [degF] OLE PACE MD [facility] 04-14-2024 13:25-0400 Diastolic Blood Pressure Non-Invasive 85 mm[Hg] OLE PACE MD [facility] 04-14-2024 13:25-0400 Heart rate 47 /min OLE PACE MD [facility] 04-14-2024 13:25-0400 Mean blood pressure 95 mm[Hg] OLE PACE MD [facility] 04-14-2024 13:25-0400 Respiratory rate 16 /min OLE PACE MD [facility] 04-14-2024 13:25-0400 Systolic Blood Pressure Non-Invasive 123 mm[Hg] OLE PACE MD [facility] 04-14-2024 13:15-0400 Heart rate 61 /min OLE PACE MD [facility] 04-14-2024 13:15-0400 Respiratory Rate - Anes 11 br/min OLE PACE MD [facility] 04-14-2024 13:10-0400 Respiratory Rate - Anes 14 br/min OLE PACE MD [facility] 04-14-2024 13:05-0400 Respiratory Rate - Anes 0 br/min OLE PACE MD [facility] 04-14-2024 11:36-0400 Body height 167.6 cm OLE PACE MD [facility] 04-14-2024 11:36-0400 Body weight 61.5 kg OLE PACE MD [facility] 04-14-2024 11:36-0400 Heart rate 79 /min OLE PACE MD [address] [place] [address] 03-03-2024 15:27-0400 Body temperature 97.52 [degF] OLE PACE MD [address] 03-03-2024 15:27-0400 Diastolic blood pressure 95 mm[Hg] OLE PACE MD [address] [place] [address] 03-03-2024 15:27-0400 Heart rate 58 /min OLE PACE MD [address] [place] [address] 03-03-2024 15:27-0400 Respiratory rate 16 /min OLE PACE MD [facility] 03-03-2024 15:27-0400 Systolic blood pressure 140 mm[Hg] OLE PACE MD [facility] 03-03-2024 13:53-0400 Body temperature 96.98 [degF] OLE PACE MD [facility] 03-03-2024 13:53-0400 Diastolic Blood Pressure Non-Invasive 81 mm[Hg] OLE PACE MD [facility] 03-03-2024 13:53-0400 Heart rate 62 /min OLE PACE MD [facility] 03-03-2024 13:53-0400 Reason For Taking VItal Signs OLE PAEC MD [address] [place] [address] 03-03-2024 13:53-0400 Respiratory rate 16 /min OLE PACE MD [facility] 03-03-2024 13:53-0400 Systolic Blood Pressure Non-Invasive 125 mm[Hg] OLE PACE MD [facility] 03-03-2024 13:45-0400 Heart rate 69 /min OLE PACE MD [facility] 03-03-2024 13:45-0400 Respiratory Rate - Anes 17 br/min OLE PACE MD [facility] 03-03-2024 13:44-0400 Diastolic Blood Pressure Non-Invasive 95 mm[Hg] OLE PACE MD [address] [place] [address] 03-03-2024 13:44-0400 Systolic Blood Pressure Non-Invasive 139 mm[Hg] OLE PACE MD [address] 03-03-2024 13:40-0400 Diastolic Blood Pressure Non-Invasive 93 mm[Hg] OLE PACE MD [facility] 03-03-2024 13:40-0400 Heart rate 86 /min OLE PACE MD [address] [place] [address] 03-03-2024 13:40-0400 Respiratory Rate - Anes 14 br/min OLE PACE MD [facility] 03-03-2024 13:40-0400 Systolic Blood Pressure Non-Invasive 122 mm[Hg] OLE PACE MD [facility] 03-03-2024 13:35-0400 Heart rate 78 /min OLE PACE MD [facility] 03-03-2024 13:35-0400 Respiratory Rate - Anes 20 br/min OLE PACE MD [address] [place] [address] 03-03-2024 11:18-0400 Body height 167.6 cm OLE PACE MD [address] [place] [address] 03-03-2024 11:18-0400 Body temperature 98.96 [degF] OLE PACE MD [address] [place] [address] 03-03-2024 11:18-0400 Body weight 59.5 kg OLE PACE MD [facility] 03-03-2024 11:18-0400 Heart rate 64 /min OLE PACE MD [facility] 03-03-2024 11:18-0400 Respiratory rate 16 /min OLE PACE MD [facility] 01-21-2024 15:05-0400 Body temperature 97.34 [degF] OLE PACE MD [facility] 01-21-2024 15:05-0400 Diastolic blood pressure 81 mm[Hg] OLE PACE MD [facility] 01-21-2024 15:05-0400 Heart rate 84 /min OLE PACE MD [facility] 01-21-2024 15:05-0400 Respiratory rate 16 /min OLE PACE MD [facility] 01-21-2024 15:05-0400 Systolic blood pressure 118 mm[Hg] OLE PACE MD [facility] 01-21-2024 13:53-0400 Body temperature 97.7 [degF] OLE PACE MD [facility] 01-21-2024 13:53-0400 Diastolic Blood Pressure Non-Invasive 85 mm[Hg] OLE PACE MD [facility] 01-21-2024 13:53-0400 Heart rate 71 /min OLE PACE MD [facility] 01-21-2024 13:53-0400 Respiratory rate 16 /min OLE PACE MD [facility] 01-21-2024 13:53-0400 Systolic Blood Pressure Non-Invasive 122 mm[Hg] OLE PACE MD [facility] 01-21-2024 13:38-0400 Diastolic Blood Pressure Non-Invasive 89 mm[Hg] OLE PACE MD [facility] 01-21-2024 13:38-0400 Systolic Blood Pressure Non-Invasive 122 mm[Hg] OLE PACE MD [facility] 01-21-2024 13:35-0400 Diastolic Blood Pressure Non-Invasive 80 mm[Hg] OLE PACE MD [facility] 01-21-2024 13:35-0400 Heart rate 89 /min OLE PACE MD [facility] 01-21-2024 13:35-0400 Respiratory Rate - Anes 13 br/min OLE PACE MD [facility] 01-21-2024 13:35-0400 Systolic Blood Pressure Non-Invasive 104 mm[Hg] OEL PACE MD [facility] 01-21-2024 13:30-0400 Heart rate 82 /min OLE PACE MD [facility] 01-21-2024 13:30-0400 Respiratory Rate - Anes 11 br/min OLE PACE MD [facility] 01-21-2024 13:25-0400 Heart rate 82 /min OLE PACE MD [address] [place] [address] 01-21-2024 13:25-0400 Respiratory Rate - Anes 12 br/min OLE PACE MD [facility] 01-21-2024 11:50-0400 Body height 167.6 cm OLE PACE MD [facility] 01-21-2024 11:50-0400 Body temperature 98.42 [degF] OLE PACE MD [facility] 01-21-2024 11:50-0400 Body weight 58.2 kg OLE PACE MD [facility] 01-21-2024 11:50-0400 Heart rate 87 /min OLE PACE MD [facility] 01-21-2024 11:50-0400 Respiratory rate 16 /min OLE PACE MD [facility] 12-03-2023 13:39-0500 Body temperature 96.8 [degF] BRITTNI LU 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 [facility] 12-03-2023 13:39-0500 Diastolic blood pressure 95 mm[Hg] BRITTNI 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 [facility] 12-03-2023 13:39-0500 Heart rate 51 /min BRITTNI LU 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 [facility] 12-03-2023 13:39-0500 Respiratory rate 16 /min BRITTNI LU 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 [facility] 12-03-2023 13:39-0500 Systolic blood pressure 141 mm[Hg] BRITTNI LU 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 [facility] 12-03-2023 12:10-0500 Body temperature 97.34 [degF] BRITTNI LU 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 [facility] 12-03-2023 12:10-0500 Diastolic Blood Pressure Non-Invasive 88 mm[Hg] BRITTNI LU 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 [facility] 12-03-2023 12:10-0500 Heart rate 69 /min BRITTNI LU 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 [facility] 12-03-2023 12:10-0500 Respiratory rate 16 /min BRITTNI LU 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 [facility] 12-03-2023 12:10-0500 Systolic Blood Pressure Non-Invasive 134 mm[Hg] BRITTNI LU 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 [facility] 12-03-2023 11:50-0500 Respiratory Rate - Anes 11 br/min BRITTNI LU 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 [facility] 12-03-2023 11:48-0500 Diastolic Blood Pressure Non-Invasive 83 mm[Hg] BRITTNI LU [employer] 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 [facility] 12-03-2023 11:48-0500 Systolic Blood Pressure Non-Invasive 120 mm[Hg] BRITTNI LU [employer] 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 [facility] 12-03-2023 11:45-0500 Body temperature 96.8 [degF] BRITTNI LU [employer] 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 [facility] 12-03-2023 11:45-0500 Diastolic Blood Pressure Non-Invasive 80 mm[Hg] BRITTNI LU [employer] 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 [facility] 12-03-2023 11:45-0500 Heart rate 71 /min BRITTNI POPEDEZ 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 [facility] 12-03-2023 11:45-0500 Respiratory Rate - Anes 17 br/min BRITTNI LU 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 [facility] 12-03-2023 11:45-0500 Systolic Blood Pressure Non-Invasive 117 mm[Hg] BRITTNI POPEDEZ [employer] 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 [facility] 12-03-2023 11:40-0500 Body temperature 96.8 [degF] BRITTNI LU 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 [facility] 12-03-2023 11:40-0500 Heart rate 76 /min BRITTNI LU 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 [facility] 12-03-2023 11:40-0500 Respiratory Rate - Anes 20 br/min BRITTNI LU [employer] 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 [facility] 12-03-2023 11:35-0500 Body temperature 96.8 [degF] BRITTNI LU [employer] 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 [facility] 12-03-2023 11:35-0500 Heart rate 76 /min BRITTNI POPEDEZ [employer] 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 [facility] 12-03-2023 09:41-0500 Body height 167.6 cm BRITTNI POPEDEZ [employer] 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 [facility] 12-03-2023 09:41-0500 Body temperature 97.52 [degF] BRITTNI POPEDEZ [employer] SUPER[employer]OR-[employer] 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 [facility] 12-03-2023 09:41-0500 Body weight 58.6 kg BRITTNI POPEDEZ [employer] 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 [facility] 12-03-2023 09:41-0500 Heart rate 78 /min BRITTNI POPEDEZ [employer]PER[employer] 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 [facility] 12-03-2023 09:41-0500 Respiratory rate 18 /min BRITTNI POPEDEZ [employer] SUPER[employer] 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 [facility] 10-22-2023 16:30-0500 Body temperature 96.98 [degF] BRITTNI LU [employer] SUPER[employer]OR[employer] 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 [facility] 10-22-2023 16:30-0500 Diastolic Blood Pressure Non-Invasive 81 mm[Hg] BRITTNI POPEDEZ [employer] SUPER[employer]OR-[employer] 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 [facility] 10-22-2023 16:30-0500 Heart rate 72 /min BRITTNI POPEDEZ [employer] SUPER[employer]OR-[employer] 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 [facility] 10-22-2023 16:30-0500 Respiratory rate 16 /min BRITTNI LU [employer] SUPER[employer]OR[employer] 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 [facility] 10-22-2023 16:30-0500 Systolic Blood Pressure Non-Invasive 115 mm[Hg] BRITTNI LU [employer] SUPER[employer]OR-[employer] 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 [facility] 10-22-2023 16:15-0500 Body temperature 97.34 [degF] BRITTNI LU [employer] SUPER[employer]OR[employer] 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 [facility] 10-22-2023 16:15-0500 Diastolic Blood Pressure Non-Invasive 76 mm[Hg] BRITTNI LU [employer] SUPER[employer]OR-[employer] 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 [facility] 10-22-2023 16:15-0500 Respiratory rate 16 /min BRITTNI LU [employer] SUPER[employer]OR-[employer]AME 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 [facility] 10-22-2023 16:15-0500 Systolic Blood Pressure Non-Invasive 107 mm[Hg] BRITTNI LU [employer] SUPERVISOR-[employer]ING FRAME 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 [facility] 10-22-2023 16:10-0500 Diastolic Blood Pressure Non-Invasive 76 mm[Hg] BRITTNI LU [employer] SUPERVISOR-[employer]ING FRAME 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 [facility] 10-22-2023 16:10-0500 Heart rate 52 /min BRITTNI LU [employer] SUPERVISOR-[employer] FRAME 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 [facility] 10-22-2023 16:10-0500 Mean blood pressure 87 mm[Hg] BRITTNI LU [employer] SUPERVISOR-SWING FRAME 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 [facility] 10-22-2023 16:10-0500 Systolic Blood Pressure Non-Invasive 107 mm[Hg] BRITTNI LU [employer] SUPERVISOR-[employer]ING FRAME 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 [facility] 10-22-2023 15:51-0500 Heart rate 49 /min BRITTNI LU [employer] SUPERVISOR-[employer] FRAME 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 [facility] 10-22-2023 15:51-0500 Respiratory rate 16 /min BRITTNI LU [employer] SUPERVISOR-[employer] FRAME 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 [facility] 10-22-2023 15:35-0500 Heart rate 50 /min BRITTNI LU [employer] SUPERVISOR-[employer]ING FRAME 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 [facility] 10-22-2023 15:18-0500 Mean blood pressure 111 mm[Hg] BRITTNI LU [employer] SUPERVISOR-[employer]ING FRAME 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 [facility] 10-22-2023 15:05-0500 Body temperature 97.34 [degF] BRITTNI LU [employer] SUPERVISOR-[employer]ING FRAME 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 [facility] 10-22-2023 10:16-0500 Body height 167.6 cm BRITTNI LU [employer] [facility] 10-22-2023 10:16-0500 Body weight 61.4 kg BRITTNI [employer] [facility] 10-22-2023 10:16-0500 Heart rate 76 /min BRITTNIRA LU [employer] [facility] 07-24-2023 16:14-0400 Body temperature 97.16 [degF] FLIP MARTIN MD [facility] 07-24-2023 16:14-0400 Diastolic Blood Pressure Non-Invasive 82 1 FLIP MARTIN MD [facility] 07-24-2023 16:14-0400 Heart rate 65 /min FLIP MARTIN MD [facility] 07-24-2023 16:14-0400 Respiratory rate 16 /min FLIP MARTIN MD [facility] 07-24-2023 16:14-0400 Systolic Blood Pressure Non-Invasive 109 1 FLIP MARTIN MD [facility] 07-24-2023 16:00-0400 Body temperature 97.52 [degF] FLIP MARTIN MD [facility] 07-24-2023 16:00-0400 Heart rate 81 /min FLIP MARTIN MD [facility] 07-24-2023 16:00-0400 systolic 108 mm[Hg] FLIP MARTIN MD [facility] 07-24-2023 15:45-0400 Diastolic Blood Pressure Non-Invasive 74 1 FLIP MARTIN MD [facility] 07-24-2023 15:45-0400 Heart rate 85 /min FLIP MARTIN MD [facility] 07-24-2023 15:45-0400 Mean blood pressure 84 mm[Hg] FLIP MARTIN MD [facility] 07-24-2023 15:45-0400 Respiratory rate 16 /min FLIP MARTIN MD [facility] 07-24-2023 15:45-0400 Systolic Blood Pressure Non-Invasive 106 1 FLIP MARTIN MD [facility] 07-24-2023 15:30-0400 diastolic 87 mm[Hg] FLIP MARTIN MD [facility] 07-24-2023 15:30-0400 Heart rate 78 /min FLIP MARTIN MD [facility] 07-24-2023 15:00-0400 Mean blood pressure 92 mm[Hg] FLIP MARTIN MD [facility] 07-24-2023 14:34-0400 Mean blood pressure 114 mm[Hg] FLIP MARTIN MD [facility] 07-24-2023 14:00-0400 Body temperature 97.34 [degF] FLIP MARTIN MD [facility] 07-24-2023 13:55-0400 Respiratory Rate - Anes 17 br/min FLIP MARTIN MD [facility] 07-24-2023 13:50-0400 Body temperature 93.88 [degF] FLIP MARTIN MD [facility] 07-24-2023 13:50-0400 Respiratory Rate - Anes 14 br/min FLIP MARTIN MD [facility] 07-24-2023 13:45-0400 Body temperature 93.9 [degF] FLIP MARTIN MD [facility] 07-24-2023 13:45-0400 Respiratory Rate - Anes 16 br/min FLIP MARTIN MD [facility] 07-24-2023 13:40-0400 Body temperature 93.87 [degF] FLIP MARTIN MD [facility] 07-24-2023 10:08-0400 Body height 167.6 cm FLIP MARTIN MD [facility] 07-24-2023 10:08-0400 Body weight 67.8 kg FLIP MARTIN MD [facility] 07-24-2023 10:08-0400 Heart rate 100 /min FLIP MARTIN MD [facility] 07-16-2023 09:45-0400 Body temperature 97.88 [degF] FLIP MARTIN MD [facility] 07-16-2023 09:45-0400 Diastolic Blood Pressure Non-Invasive 81 1 FLIP MARTIN MD [facility] 07-16-2023 09:45-0400 Heart rate 103 /min FLIP MARTIN MD [facility] 07-16-2023 09:45-0400 Reason For Taking VItal Signs FLIP MARTIN MD [facility] 07-16-2023 09:45-0400 Respiratory rate 16 /min FLIP MARTIN MD [facility] 07-16-2023 09:45-0400 Systolic Blood Pressure Non-Invasive 107 1 FLIP MARTIN MD [facility] 07-16-2023 06:25-0400 Body temperature 98.42 [degF] FLIP MARTIN MD [facility] 07-16-2023 06:25-0400 Diastolic Blood Pressure Non-Invasive 77 1 FLIP MARTIN MD [facility] 07-16-2023 06:25-0400 Heart rate 106 /min FLIP MARTIN MD [facility] 07-16-2023 06:25-0400 Reason For Taking VItal Signs FLIP MARTIN MD [facility] 07-16-2023 06:25-0400 Respiratory rate 16 /min FLIP MARTIN MD [facility] 07-16-2023 06:25-0400 Systolic Blood Pressure Non-Invasive 110 1 FLIP MARTIN MD [facility] 07-16-2023 02:07-0400 Body temperature 98.6 [degF] FLIP MARTIN MD [facility] 07-16-2023 02:07-0400 Diastolic Blood Pressure Non-Invasive 81 1 FLIP MARTIN MD [facility] 07-16-2023 02:07-0400 Heart rate 97 /min FLPI MARTIN MD [facility] 07-16-2023 02:07-0400 Systolic Blood Pressure Non-Invasive 108 1 FLIP MARTIN MD [facility] 07-15-2023 21:54-0400 Respiratory rate 18 /min FLIP MARTIN MD [facility] 07-15-2023 15:00-0400 Reason For Taking VItal Signs FLIP MARTIN MD [facility] 07-15-2023 14:00-0400 Blood Pressure Cuff Size FLIP MARTIN MD [facility] 07-15-2023 14:00-0400 Blood Pressure Location FLIP MARTIN MD [facility] 07-15-2023 14:00-0400 Blood Pressure Method FLIP MARTIN MD [facility] 07-14-2023 22:31-0400 Blood Pressure Cuff Size FLIP MARTIN MD [facility] 07-14-2023 22:31-0400 Blood Pressure Location FLIP MARTIN MD [facility] 07-14-2023 22:31-0400 Blood Pressure Method FLIP MARTIN MD [facility] 07-14-2023 14:39-0400 Blood Pressure Cuff Size FLIP MARTIN MD [facility] 07-14-2023 14:39-0400 Blood Pressure Location FLIP MARTIN MD [facility] 07-14-2023 14:39-0400 Blood Pressure Method FLIP MARTIN MD [facility] 07-09-2023 19:11-0400 Heart rate 88 /min FLIP MARTIN MD [facility] 07-09-2023 14:26-0400 Heart rate 68 /min FLIP MARTIN MD [facility] 07-09-2023 13:50-0400 Heart rate 88 /min FLIP MARTIN MD [facility] 07-09-2023 07:02-0400 Body height 167.6 cm FLIP MARTIN MD [facility] 07-09-2023 07:02-0400 Body weight 62.8 kg FLIP MARTIN MD [facility] 07-09-2023 07:02-0400 Body weight 22.36 kg/m2 FLIP MARTIN MD [facility] 07-08-2023 20:24-0400 Body weight 62.8 kg FLIP MARTIN MD [facility] 05-07-2023 14:50-0400 Body temperature 97.88 [degF] FLIP MARTIN MD [facility] 05-07-2023 14:50-0400 Diastolic Blood Pressure Non-Invasive 87 1 FLIP MARTIN MD [facility] 05-07-2023 14:50-0400 Heart rate 90 /min FLIP MARTIN MD [facility] 05-07-2023 14:50-0400 Respiratory rate 16 /min FLIP MARTIN MD [facility] 05-07-2023 14:50-0400 Systolic Blood Pressure Non-Invasive 119 1 FLIP MARTIN MD [facility] 05-07-2023 09:41-0400 Body temperature 98.42 [degF] FLIP MARTIN MD [facility] 05-07-2023 09:41-0400 Diastolic Blood Pressure Non-Invasive 90 1 FLIP MARTIN MD [facility] 05-07-2023 09:41-0400 Heart rate 83 /min FLIP MARTIN MD [facility] 05-07-2023 09:41-0400 Respiratory rate 16 /min FLIP MARTIN MD [facility] 05-07-2023 09:41-0400 Systolic Blood Pressure Non-Invasive 148 1 FLIP MARTIN MD [facility] 05-07-2023 06:22-0400 Body temperature 98.24 [degF] FLIP MARTIN MD [facility] 05-07-2023 06:22-0400 Diastolic Blood Pressure Non-Invasive 74 1 FLIP MARTIN MD [facility] 05-07-2023 06:22-0400 Heart rate 81 /min FILP MARTIN MD [facility] 05-07-2023 06:22-0400 Respiratory rate 16 /min FLIP MARTIN MD [facility] 05-07-2023 06:22-0400 Systolic Blood Pressure Non-Invasive 109 1 FLIP MARTIN MD [facility] 05-04-2023 15:52-0400 Blood Pressure Cuff Size FLIP MARTIN MD [facility] 05-04-2023 15:52-0400 Blood Pressure Location FLIP MARTIN MD [facility] 05-04-2023 15:52-0400 Blood Pressure Method FLIP MARTIN MD [facility] 05-04-2023 03:44-0400 Reason For Taking VItal Signs FLIP MARTIN MD [facility] 05-03-2023 23:02-0400 Reason For Taking VItal Signs FLIP MARTIN MD [facility] 05-03-2023 18:07-0400 Reason For Taking VItal Signs FLIP MARTIN MD [facility] 04-30-2023 18:27-0400 Blood Pressure Cuff Size FLIP MARTIN MD [facility] 04-30-2023 18:27-0400 Blood Pressure Location FLIP MARTIN MD [facility] 04-30-2023 18:27-0400 Blood Pressure Method FLIP MARTIN MD [facility] 04-30-2023 18:27-0400 Heart rate 79 /min FLIP MARTIN MD [facility] 04-30-2023 14:28-0400 Blood Pressure Cuff Size FLIP MARTIN MD [facility] 04-30-2023 14:28-0400 Heart rate 83 /min FLIP MARTIN MD [facility] 04-30-2023 10:52-0400 Heart rate 90 /min FLIP MARTIN MD [facility] 04-29-2023 11:30-0400 Respiratory Rate - Anes 18 br/min FLIP MARTIN MD [facility] 04-29-2023 10:40-0400 Heart rate 72 /min FLIP MARTIN MD [facility] 04-29-2023 10:25-0400 Heart rate 73 /min FLIP MARTIN MD [facility] 04-29-2023 10:20-0400 Heart rate 74 /min FLIP MARTIN MD [facility] 04-28-2023 13:10-0400 Body height 167 cm FLIP MARTIN MD [facility] 04-28-2023 13:10-0400 Body weight 63.9 kg FLIP MARTIN MD [facility] 04-28-2023 13:10-0400 Body weight 22.91 kg/m2 FLIP MARTIN MD [facility] 04-28-2023 01:00-0400 Mean blood pressure 106 mm[Hg] FLIP MARTIN MD [facility] 04-28-2023 00:45-0400 Mean blood pressure 113 mm[Hg] FLIP MARTIN MD [facility] 04-28-2023 00:30-0400 Mean blood pressure 110 mm[Hg] FLIP MARTIN MD [facility] 04-27-2023 16:11-0400 Body weight 63.9 kg FLIP MARTIN MD [facility] 03-05-2023 16:12-0400 Body temperature 98.6 [degF] FLIP MARTIN MD [facility] 03-05-2023 16:12-0400 Diastolic Blood Pressure Non-Invasive 80 1 FLIP MARTIN MD [facility] 03-05-2023 16:12-0400 Heart rate 87 /min FLIP MARTIN MD [facility] 03-05-2023 16:12-0400 Respiratory rate 16 /min FLIP MARTIN MD [facility] 03-05-2023 16:12-0400 Systolic Blood Pressure Non-Invasive 108 1 FLIP MARTIN MD [facility] 03-05-2023 07:05-0400 Body temperature 97.88 [degF] FLIP MARTIN MD [facility] 03-05-2023 07:05-0400 Diastolic Blood Pressure Non-Invasive 68 1 FLIP MARTIN MD [facility] 03-05-2023 07:05-0400 Heart rate 96 /min FLIP MARTIN MD [facility] 03-05-2023 07:05-0400 Respiratory rate 16 /min FLIP MARTIN MD [facility] 03-05-2023 07:05-0400 Systolic Blood Pressure Non-Invasive 99 1 FLIP MARTIN MD [facility] 03-04-2023 21:26-0400 Body temperature 98.42 [degF] FLIP MARTIN MD [facility] 03-04-2023 21:26-0400 Diastolic Blood Pressure Non-Invasive 88 1 FLIP MARTIN MD [facility] 03-04-2023 21:26-0400 Heart rate 93 /min FLIP MARTIN MD [facility] 03-04-2023 21:26-0400 Reason For Taking VItal Signs FLIP MARTIN MD [facility] 03-04-2023 21:26-0400 Respiratory rate 18 /min FLIP MARTIN MD [facility] 03-04-2023 21:26-0400 Systolic Blood Pressure Non-Invasive 122 1 FLIP MARTIN MD [facility] 03-03-2023 21:35-0400 Reason For Taking VItal Signs FLIP MARTIN MD [facility] 03-01-2023 20:41-0400 Reason For Taking VItal Signs FLIP MARTIN MD [facility] 03-01-2023 08:57-0400 Heart rate 68 /min FLIP MARTIN MD [facility] 03-01-2023 04:50-0400 Blood Pressure Location FLIP MARTIN MD [facility] 03-01-2023 04:50-0400 Blood Pressure Method FLIP MARTIN MD [facility] 02-23-2023 21:09-0400 Body height 167.6 cm FLIP MARTIN MD [facility] 02-23-2023 21:09-0400 Body weight 55.7 kg FLIP MARTIN MD [facility] 02-23-2023 21:09-0400 Body weight 19.83 kg/m2 FLIP MARTIN MD [facility] 02-23-2023 11:58-0400 Body temperature 97.7 [degF] FLIP MARTIN MD [facility] 02-23-2023 11:58-0400 Body weight 55.7 kg FLIP MARTIN MD [facility] 02-17-2023 11:08-0400 Diastolic Blood Pressure Non-Invasive 77 1 BRITTNI POPEDEZ [employer] SUPER[employer]OR-[employer] 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 [facility] 02-17-2023 11:08-0400 Heart rate 85 /min BRITTNI LU [employer] SUPERVISOR-[employer] FRAME 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 [facility] 02-17-2023 11:08-0400 Respiratory rate 16 /min BRITTNI LU [employer] SUPERVISOR-[employer] FRAME 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 [facility] 02-17-2023 11:08-0400 Systolic Blood Pressure Non-Invasive 119 1 BRITTNI LU [employer] SUPERVISOR-[employer] FRAME 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 [facility] 02-17-2023 10:50-0400 Diastolic Blood Pressure Non-Invasive 83 1 BRITTNI LU [employer] SUPERVISOR-[employer] FRAME 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 [facility] 02-17-2023 10:50-0400 Heart rate 78 /min BRITTNI LU [employer] SUPERVISOR-[employer] FRAME 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 [facility] 02-17-2023 10:50-0400 Respiratory rate 16 /min BRITTNI LU [employer] SUPERVISOR-[employer] FRAME 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 [facility] 02-17-2023 10:50-0400 Systolic Blood Pressure Non-Invasive 137 1 BRITTNI POPEDEZ [employer] SUPERVISOR-[employer] FRAME 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 [facility] 02-17-2023 10:35-0400 Diastolic Blood Pressure Non-Invasive 87 1 BRITTNI LU [employer] SUPERVISOR-[employer]ING FRAME 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 [facility] 02-17-2023 10:35-0400 Heart rate 84 /min BRITTNI LU [employer] SUPERVISOR-[employer] FRAME 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 [facility] 02-17-2023 10:35-0400 Respiratory rate 16 /min BRITTNI LU [employer] SUPERVISOR-[employer] FRAME 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 [facility] 02-17-2023 10:35-0400 Systolic Blood Pressure Non-Invasive 128 1 BRITTNI LU [employer] SUPERVISOR-[employer]ING FRAME 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 [facility] 02-17-2023 09:02-0400 Blood Pressure Cuff Size BRITTNI LU [employer] SUPERVISOR-[employer] 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 [facility] 02-17-2023 09:02-0400 Blood Pressure Location BRITTNI LU [employer] SUPERVISOR-[employer] 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 [facility] 02-17-2023 09:02-0400 Blood Pressure Method BRITTNI LU [employer] SUPERVISOR-[employer] 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 [facility] 02-17-2023 09:02-0400 Body height 167.6 cm BRITTNI LU [employer] SUPERVISOR-[employer] FR[employer] 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 [facility] 02-17-2023 09:02-0400 Body temperature 97.88 [degF] BRITTNI LU [employer] SUPERVISOR-[employer] FRAME 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 [facility] 02-17-2023 09:02-0400 Body weight 50 kg BRITTNI LU [employer] SUPERVISOR-[employer] 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 [facility] 02-17-2023 09:02-0400 Body weight 17.8 kg/m2 BRITTNI LU [employer] SUPERVISOR-[employer] 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 [facility] 02-17-2023 09:02-0400 Heart rate 94 /min BRITTNI LU [employer] SUPERVISOR-[employer] 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 [facility] 01-06-2023 12:50-0500 Body temperature 98.06 [degF] FLIP MARTIN MD [facility] 01-06-2023 12:50-0500 Diastolic Blood Pressure Non-Invasive 92 1 FLIP MARTIN MD [facility] 01-06-2023 12:50-0500 Heart rate 73 /min FLIP MARTIN MD [facility] 01-06-2023 12:50-0500 Reason For Taking VItal Signs FLIP MARTIN MD [facility] 01-06-2023 12:50-0500 Respiratory rate 16 /min FLIP MARTIN MD [facility] 01-06-2023 12:50-0500 Systolic Blood Pressure Non-Invasive 137 1 FLIP MARTIN MD [facility] 01-06-2023 07:55-0500 Body temperature 98.06 [degF] FLIP MARTIN MD [facility] 01-06-2023 07:55-0500 Diastolic Blood Pressure Non-Invasive 87 1 FLIP MARTIN MD [address] [place] [address] 01-06-2023 07:55-0500 Heart rate 64 /min FLIP MARTIN MD [facility] 01-06-2023 07:55-0500 Reason For Taking VItal Signs FLIP MARTIN MD [facility] 01-06-2023 07:55-0500 Respiratory rate 16 /min FLIP MARTIN MD [facility] 01-06-2023 07:55-0500 Systolic Blood Pressure Non-Invasive 121 1 FLIP MARTIN MD [facility] 01-06-2023 07:53-0500 Reason For Taking VItal Signs FLIP MARTIN MD [facility] 01-06-2023 04:04-0500 Body temperature 97.88 [degF] FLIP MARTIN MD [facility] 01-06-2023 04:04-0500 Diastolic Blood Pressure Non-Invasive 73 1 FLIP MARTIN MD [facility] 01-06-2023 04:04-0500 Heart rate 68 /min FLIP MARTIN MD [facility] 01-06-2023 04:04-0500 Respiratory rate 16 /min FLIP MARTIN MD [facility] 01-06-2023 04:04-0500 Systolic Blood Pressure Non-Invasive 109 1 FLIP MARTIN MD [facility] 01-05-2023 23:23-0500 Heart rate 80 /min FLIP MARTIN MD [facility] 01-05-2023 04:12-0500 Blood Pressure Cuff Size FLIP MARTIN MD [facility] 01-05-2023 04:12-0500 Blood Pressure Location FLIP MARTIN MD [facility] 01-05-2023 04:12-0500 Blood Pressure Method FLIP MARTIN MD [address] [place] [address] 01-05-2023 00:07-0500 Blood Pressure Cuff Size FLIP MARTIN MD [facility] 01-05-2023 00:07-0500 Blood Pressure Location FLIP MARTIN MD [facility] 01-05-2023 00:07-0500 Blood Pressure Method FLIP MARTIN MD [facility] 01-04-2023 20:20-0500 Blood Pressure Method FLIP MARTIN MD [facility] 01-02-2023 15:45-0500 Heart rate 97 /min FLIP MARTIN MD [facility] 01-02-2023 15:40-0500 Heart rate 100 /min FLIP MARTIN MD [facility] 01-02-2023 15:35-0500 Heart rate 90 /min FLIP MARTIN MD [facility] 01-01-2023 16:31-0500 Body height 167.6 cm FLIP MARTIN MD [facility] 01-01-2023 16:31-0500 Body weight 47.7 kg FLIP MARTIN MD [facility] 01-01-2023 16:31-0500 Body weight 16.98 kg/m2 FLIP MARTIN MD [facility] 01-01-2023 16:08-0500 Body temperature 97.88 [degF] FLIP AMRTIN MD [facility] 01-01-2023 16:08-0500 Diastolic Blood Pressure Non-Invasive 91 1 FLIP MARTIN MD [facility] 01-01-2023 16:08-0500 Heart rate 72 /min FLIP MARTIN MD [facility] 01-01-2023 16:08-0500 Respiratory rate 16 /min FLIP MARTIN MD [facility] 01-01-2023 16:08-0500 Systolic Blood Pressure Non-Invasive 129 1 FLIP MARTIN MD [facility] 01-01-2023 15:22-0500 Diastolic Blood Pressure Non-Invasive 89 1 FLIP MARTIN MD [facility] 01-01-2023 15:22-0500 Heart rate 50 /min FLIP MARTIN MD [facility] 01-01-2023 15:22-0500 Respiratory rate 16 /min FLIP MARTIN MD [facility] 01-01-2023 15:22-0500 Systolic Blood Pressure Non-Invasive 121 1 FLIP MARTIN MD [facility] 01-01-2023 13:37-0500 Body height 167.6 cm FLIP MARTIN MD [facility] 01-01-2023 13:37-0500 Respiratory rate 18 /min FLIP MARTIN MD [facility] 01-01-2023 13:31-0500 Body temperature 97.88 [degF] FLIP MARTIN MD [facility] 01-01-2023 13:31-0500 Diastolic Blood Pressure Non-Invasive 106 1 FLIP MARTIN MD [facility] 01-01-2023 13:31-0500 Heart rate 62 /min FLIP MARTIN MD [facility] 01-01-2023 13:31-0500 Systolic Blood Pressure Non-Invasive 137 1 FLIP MARTIN MD [facility] 11-15-2022 13:45-0500 Diastolic Blood Pressure Non-Invasive 60 1 BRITTNI LU [employer] SUPERVISOR-[employer] 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 [facility] 11-15-2022 13:45-0500 Heart rate 63 /min BRITTNI LU [employer] SUPERVISOR-[employer] FRAME 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 [facility] 11-15-2022 13:45-0500 Respiratory rate 16 /min BRITTNI LU [employer] SUPERVISOR-[employer]ING FRAME 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 [facility] 11-15-2022 13:45-0500 Systolic Blood Pressure Non-Invasive 125 1 BRITTNI LU [employer] SUPERVISOR-[employer] FRAME 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 [facility] 11-15-2022 13:30-0500 Diastolic Blood Pressure Non-Invasive 95 1 BRITTNI LU [employer] SUPERVISOR-[employer]ING FRAME 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 [facility] 11-15-2022 13:30-0500 Heart rate 60 /min BRITTNI LU [employer] SUPERVISOR-[employer]ING FRAME 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 [facility] 11-15-2022 13:30-0500 Respiratory rate 14 /min BRITTNI LU [employer] SUPERVISOR-[employer]ING FRAME 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 [facility] 11-15-2022 13:30-0500 Systolic Blood Pressure Non-Invasive 132 1 BRITTNI LU [employer] SUPERVISOR-SWING FRAME 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 [facility] 11-15-2022 13:17-0500 Diastolic Blood Pressure Non-Invasive 84 1 BRITTNI LU [employer] SUPERVISOR-[employer]ING FRAME 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 [facility] 11-15-2022 13:17-0500 Heart rate 67 /min BRITTNI LU [employer] SUPERVISOR-[employer]ING FRAME 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 [facility] 11-15-2022 13:17-0500 Respiratory rate 14 /min BRITTNI LU [employer] SUPERVISOR-[employer]ING FRAME 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 [facility] 11-15-2022 13:17-0500 Systolic Blood Pressure Non-Invasive 136 1 BRITTNI LU [employer] SUPERVISOR-[employer]ING FRAME 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 [facility] 11-15-2022 12:35-0500 Heart rate 66 /min BRITTNI POPEDEZ [employer] SUPERVISOR-[employer]ING FRAME 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 [facility] 11-15-2022 12:25-0500 Heart rate 67 /min BRITTNI POPEDEZ [employer] SUPERVISOR-[employer]ING FRAME 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 [facility] 11-15-2022 12:20-0500 Heart rate 72 /min BRITTNI LU [employer] SUPERVISOR-SWING FRAME 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 [facility] 11-15-2022 09:52-0500 Blood Pressure Cuff Size BRITTNI LU [employer] SUPERVISOR-[employer]ING FRAME 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 [facility] 11-15-2022 09:52-0500 Blood Pressure Location BRITTNI LU [employer] SUPERVISOR-[employer]ING FRAME 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 [facility] 11-15-2022 09:52-0500 Blood Pressure Method BRITTNI POPEDEZ [employer] SUPERVISOR-[employer]ING FRAME 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 [facility] 11-15-2022 09:52-0500 Body height 167.6 cm BRITTNI POPEDEZ [employer] SUPERVISOR-SWING FRAME 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 [facility] 11-15-2022 09:52-0500 Body temperature 98.24 [degF] BRITTNI LU [employer] SUPERVISOR-[employer]ING FRAME 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 [facility] 11-15-2022 09:52-0500 Body weight 50 kg BRITTNI POPEDEZ [employer] SUPERVISOR-[employer]ING FRAME 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 [facility] 11-15-2022 09:52-0500 Body weight 17.8 kg/m2 BRITTNI LU [employer] SUPERVISOR-[employer]ING FRAME 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 [facility] 10-08-2022 14:35-0500 Diastolic Blood Pressure Non-Invasive 83 1 FLIP MARTIN MD [facility] 10-08-2022 14:35-0500 Heart rate 85 /min FLIP MARTIN MD [facility] 10-08-2022 14:35-0500 Reason For Taking VItal Signs FLIP MARTIN MD [facility] 10-08-2022 14:35-0500 Respiratory rate 16 /min FLIP MARTIN MD [facility] 10-08-2022 14:35-0500 Systolic Blood Pressure Non-Invasive 114 1 FLIP MARTIN MD [facility] 10-08-2022 07:30-0500 Body temperature 98.24 [degF] FLIP MARTIN MD [facility] 10-08-2022 07:30-0500 Diastolic Blood Pressure Non-Invasive 73 1 FLIP MARTIN MD [facility] 10-08-2022 07:30-0500 Heart rate 81 /min FLIP MARTIN MD [facility] 10-08-2022 07:30-0500 Reason For Taking VItal Signs FLIP MARTIN MD [facility] 10-08-2022 07:30-0500 Respiratory rate 14 /min FLIP MARTIN MD [facility] 10-08-2022 07:30-0500 Systolic Blood Pressure Non-Invasive 99 1 FLIP MARTIN MD [facility] 10-07-2022 21:42-0500 Body temperature 98.24 [degF] FLIP MARTIN MD [facility] 10-07-2022 21:42-0500 Diastolic Blood Pressure Non-Invasive 69 1 FLIP MARTIN MD [facility] 10-07-2022 21:42-0500 Heart rate 86 /min FLIP MARTIN MD [facility] 10-07-2022 21:42-0500 Respiratory rate 16 /min FLIP MARTIN MD [facility] 10-07-2022 21:42-0500 Systolic Blood Pressure Non-Invasive 94 1 FLIP MARTIN MD [facility] 10-07-2022 15:38-0500 Body temperature 98.24 [degF] FLIP MARTIN MD [facility] 10-07-2022 15:38-0500 Reason For Taking VItal Signs FLIP MARTIN MD [facility] 10-05-2022 20:19-0500 Heart rate 102 /min FLIP MARTIN MD [facility] 10-05-2022 15:56-0500 Heart rate 74 /min FLIP MARTIN MD [facility] 10-05-2022 12:04-0500 Heart rate 79 /min FLIP MARTIN MD [facility] 10-01-2022 21:35-0500 Heart rate 62 /min FLIP MARTIN MD [facility] 09-30-2022 17:45-0500 Body height 167.6 cm FLIP MARTIN MD [facility] 09-30-2022 17:45-0500 Body weight 50.4 kg FLIP MARTIN MD [facility] 09-30-2022 17:45-0500 Body weight 17.94 kg/m2 FLIP MARTIN MD [facility] 09-30-2022 10:13-0500 Body weight 50.4 kg FLIP MARTIN MD [facility] 09-27-2022 15:45-0500 Body temperature 99.14 [degF] GUCCI ALEXANDRE MD [facility] 09-27-2022 15:45-0500 Body weight 50.2 kg GUCCI ALEAXNDRE MD [facility] 09-27-2022 15:45-0500 Diastolic Blood Pressure Non-Invasive 108 1 GUCCI ALEXANDRE MD [facility] 09-27-2022 15:45-0500 Heart rate 122 /min GUCCI ALEXANDRE MD [facility] 09-27-2022 15:45-0500 Systolic Blood Pressure Non-Invasive 126 1 GUCCI ALEXANDRE MD [facility] 08-16-2022 13:01-0400 Body temperature 98.06 [degF] FLIP MARTIN MD [facility] 08-16-2022 13:01-0400 Diastolic blood pressure 75 mm[Hg] FLIP MARTIN MD [facility] 08-16-2022 13:01-0400 Heart rate 107 /min FLIP MARTIN MD [facility] 08-16-2022 13:01-0400 Reason For Taking VItal Signs FLIP MARTIN MD [facility] 08-16-2022 13:01-0400 Respiratory rate 16 /min FLIP MARTIN MD [facility] 08-16-2022 13:01-0400 Systolic blood pressure 102 mm[Hg] FLIP MARTIN MD [facility] 08-16-2022 07:18-0400 Body temperature 97.52 [degF] FLIP MARTIN MD [facility] 08-16-2022 07:18-0400 Diastolic blood pressure 88 mm[Hg] FLIP MARTIN MD [facility] 08-16-2022 07:18-0400 Heart rate 99 /min FLIP MARTIN MD [facility] 08-16-2022 07:18-0400 Reason For Taking VItal Signs FLIP MARTIN MD [facility] 08-16-2022 07:18-0400 Respiratory rate 16 /min FLIP MARTIN MD [facility] 08-16-2022 07:18-0400 Systolic blood pressure 131 mm[Hg] FLIP MARTIN MD [facility] 08-16-2022 04:44-0400 Body temperature 97.7 [degF] FLIP MARTIN MD [facility] 08-16-2022 04:44-0400 Diastolic blood pressure 82 mm[Hg] FLIP MARTIN MD [facility] 08-16-2022 04:44-0400 Heart rate 92 /min FLIP MARTIN MD [facility] 08-16-2022 04:44-0400 Respiratory rate 16 /min FLIP MARTIN MD [facility] 08-16-2022 04:44-0400 Systolic blood pressure 108 mm[Hg] FLIP MARTIN MD [facility] 08-15-2022 20:36-0400 Mean blood pressure 94 mm[Hg] FLIP MARTIN MD [facility] 08-15-2022 20:36-0400 Reason For Taking VItal Signs FLIP MARTIN MD [facility] 08-15-2022 08:42-0400 Heart rate 92 /min FLIP MARTIN MD [facility] 08-14-2022 13:15-0400 Heart rate 75 /min FLIP MARTIN MD [facility] 08-14-2022 13:15-0400 Mean blood pressure 104 mm[Hg] FLIP MARTIN MD [facility] 08-14-2022 13:05-0400 Heart rate 80 /min FLIP MARTIN MD [facility] 08-14-2022 13:05-0400 Mean blood pressure 104 mm[Hg] FLIP MARTIN MD [facility] 08-11-2022 03:14-0400 Heart rate 88 /min FLIP MARTIN MD [facility] 08-10-2022 23:33-0400 Heart rate 75 /min FLIP MARTIN MD [facility] 08-08-2022 16:51-0400 Body height 167.6 cm FLIP MARTIN MD [facility] 08-08-2022 16:51-0400 Body weight 52.5 kg FLIP MARTIN MD [facility] 08-08-2022 16:51-0400 Body weight 18.69 kg/m2 FLIP MARTIN MD [facility] 08-08-2022 16:05-0400 Diastolic blood pressure 87 mm[Hg] BRITTNI PRATHERZ [employer] SUPERVISOR-[employer]ING FRAME 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 [facility] 08-08-2022 16:05-0400 Heart rate 65 /min BRITTNI LU [employer] SUPERVISOR-SWING FRAME 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 [facility] 08-08-2022 16:05-0400 Respiratory rate 18 /min BRITTNI LU [employer] SUPERVISOR-SWING FRAME 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 [facility] 08-08-2022 16:05-0400 Systolic blood pressure 130 mm[Hg] BRITTNI LU [employer] SUPERVISOR-SWING FRAME 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 [facility] 08-08-2022 14:27-0400 Body temperature 97.88 [degF] BRITTNI PRATHERZ [employer] SUPERVISOR-SWING FRAME 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 [facility] 08-08-2022 14:27-0400 Reason For Taking VItal Signs BRITTNI POPEDEZ [employer] SUPERVISOR-SWING FRAME 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 [facility] 08-08-2022 13:43-0400 diastolic 87 mm[Hg] BRITTNI POPEDEZ [employer] SUPERVISOR-SWING FRAME 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 [facility] 08-08-2022 13:43-0400 Heart rate 71 /min BRITTNI POPEDEZ [employer] SUPERVISOR-SWING FRAME 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 [facility] 08-08-2022 13:43-0400 Respiratory rate 18 /min BRITTNI POPEDEZ [employer] SUPERVISOR-SWING FRAME 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 [facility] 08-08-2022 13:43-0400 systolic 126 mm[Hg] BRITTNI POPEDEZ [employer] SUPERVISOR-SWING FRAME 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 [facility] 07-04-2022 13:38-0400 Diastolic blood pressure 80 mm[Hg] BRITTNI POPEDEZ [employer] SUPERVISOR-SWING FRAME 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 [facility] 07-04-2022 13:38-0400 Heart rate 77 /min BRITTNI POPEDEZ [employer] SUPERVISOR-SWING FRAME 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 [facility] 07-04-2022 13:38-0400 Mean blood pressure 91 mm[Hg] BRITTNI POPEDEZ [employer] SUPERVISOR-SWING FRAME 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 [facility] 07-04-2022 13:38-0400 Respiratory rate 18 /min BRITTNI POPEDEZ [employer] SUPERVISOR-SWING FRAME 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 [facility] 07-04-2022 13:38-0400 Systolic blood pressure 113 mm[Hg] BRITTNI LU [employer] SUPERVISOR-SWING FRAME 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 [facility] 07-04-2022 13:20-0400 Diastolic blood pressure 85 mm[Hg] BRITTNI PRATHERZ [employer] SUPERVISOR-SWING FRAME 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 [facility] 07-04-2022 13:20-0400 Heart rate 74 /min BRITTNI LU [employer] SUPERVISOR-SWING FRAME 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 [facility] 07-04-2022 13:20-0400 Mean blood pressure 95 mm[Hg] BRITTNI LU [employer] SUPERVISOR-SWING FRAME 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 [facility] 07-04-2022 13:20-0400 Respiratory rate 16 /min BRITTNI LU [employer] SUPERVISOR-SWING FRAME 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 [facility] 07-04-2022 13:20-0400 Systolic blood pressure 114 mm[Hg] BRITTNI LU [employer] SUPERVISOR-SWING FRAME 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 [facility] 07-04-2022 12:58-0400 Diastolic blood pressure 86 mm[Hg] BRITTNI POPEDEZ [employer] SUPERVISOR-SWING FRAME 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 [facility] 07-04-2022 12:58-0400 Heart rate 77 /min BRITTNI POPEDEZ [employer] SUPERVISOR-SWING FRAME 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 [facility] 07-04-2022 12:58-0400 Mean blood pressure 99 mm[Hg] BRITTNI LU [employer] SUPERVISOR-SWING FRAME 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 [facility] 07-04-2022 12:58-0400 Respiratory rate 16 /min BRITTNI POPEDEZ [employer] SUPERVISOR-SWING FRAME 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 [facility] 07-04-2022 12:58-0400 Systolic blood pressure 124 mm[Hg] BRITTNI LU [employer] SUPERVISOR-SWING FRAME 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 [facility] 07-04-2022 10:37-0400 Body height 167.6 cm BRITTNI LU [employer] SUPERVISOR-SWING FRAME 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 [facility] 07-04-2022 10:37-0400 Body temperature 98.06 [degF] BRITTNI LU [employer] SUPERVISOR-SWING FRAME 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 [facility] 07-04-2022 10:37-0400 Body weight 45.4 kg BRITTNI LU [employer] SUPERVISOR-SWING FRAME 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 [facility] 07-04-2022 10:37-0400 Body weight 16.16 kg/m2 BRITTNI LU [employer] SUPERVISOR-SWING FRAME 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 [facility] 07-04-2022 10:37-0400 diastolic 87 mm[Hg] BRITTNI LU [employer] SUPERVISOR-SWING FRAME 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 [facility] 07-04-2022 10:37-0400 Heart rate 88 /min [facility] [employer] [facility] 07-04-2022 10:37-0400 systolic 123 mm[Hg] BRITTNIRA LU [employer]W SUPERVISOR-SWING FRAME 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 [facility] 04-19-2022 16:12-0400 Body temperature 98.42 [degF] FLIP MARTIN MD [facility] 04-19-2022 16:12-0400 Diastolic blood pressure 88 mm[Hg] FLIP MARTIN MD [facility] 04-19-2022 16:12-0400 Heart rate 72 /min FLIP MARTIN MD [facility] 04-19-2022 16:12-0400 Reason For Taking VItal Signs FLIP MARTIN MD [facility] 04-19-2022 16:12-0400 Respiratory rate 16 /min FLIP MARTIN MD [facility] 04-19-2022 16:12-0400 Systolic blood pressure 125 mm[Hg] FLIP MARTIN MD [facility] 04-19-2022 12:04-0400 Body temperature 98.6 [degF] FLIP MARTIN MD [facility] 04-19-2022 12:04-0400 Diastolic blood pressure 100 mm[Hg] FLIP MARTIN MD [facility] 04-19-2022 12:04-0400 Heart rate 82 /min FLIP MARTIN MD [facility] 04-19-2022 12:04-0400 Reason For Taking VItal Signs FLIP MARTIN MD [facility] 04-19-2022 12:04-0400 Respiratory rate 16 /min FLIP MARTIN MD [facility] 04-19-2022 12:04-0400 Systolic blood pressure 133 mm[Hg] FLIP MARTIN MD [facility] 04-19-2022 08:19-0400 Body temperature 97.7 [degF] FLIP MARTIN MD [facility] 04-19-2022 08:19-0400 Diastolic blood pressure 87 mm[Hg] FLIP MARTIN MD [facility] 04-19-2022 08:19-0400 Heart rate 78 /min FLIP MARTIN MD [facility] 04-19-2022 08:19-0400 Reason For Taking VItal Signs FLIP MARTIN MD [facility] 04-19-2022 08:19-0400 Respiratory rate 16 /min FLIP MARTIN MD [facility] 04-19-2022 08:19-0400 Systolic blood pressure 123 mm[Hg] FLIP MARTIN MD [facility] 04-17-2022 13:37-0400 Mean blood pressure 109 mm[Hg] FLIP MARTIN MD [facility] 04-17-2022 08:19-0400 Mean blood pressure 88 mm[Hg] FLIP MARTIN MD [facility] 04-15-2022 21:40-0400 Mean blood pressure 106 mm[Hg] FLIP MARTIN MD [facility] 04-14-2022 22:09-0400 Body height 167.6 cm FLIP MARTIN MD [facility] 04-14-2022 22:09-0400 Body weight 45.4 kg FLIP MARTIN MD [facility] 04-14-2022 22:09-0400 Body weight 16.16 kg/m2 FLIP MARTIN MD [facility] 04-11-2022 15:18-0400 Diastolic blood pressure 96 mm[Hg] BRITTNI LU APRN-SWING FRAME 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 [facility] 04-11-2022 15:18-0400 Heart rate 72 /min BRITTNI LU LABOR CREW SUPERVISOR-SWING FRAME 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 [facility] 04-11-2022 15:18-0400 Respiratory rate 16 /min BRTITNI LU LABOR CREW SUPERVISOR-SWING FRAME 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 [facility] 04-11-2022 15:18-0400 Systolic blood pressure 144 mm[Hg] BRITTNI POPEDEZ LABOR CREW SUPERVISOR-SWING FRAME 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 [facility] 04-11-2022 14:45-0400 Diastolic Blood Pressure NBP 87 1 BRITTNI LU LABOR CREW SUPERVISOR-SWING FRAME 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 [facility] 04-11-2022 14:45-0400 Heart rate 69 /min BRITTNI LU LABOR CREW SUPERVISOR-SWING FRAME 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 [facility] 04-11-2022 14:45-0400 Respiratory rate 14 /min BRITTNI LU LABOR CREW SUPERVISOR-SWING FRAME 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 [facility] 04-11-2022 14:45-0400 Systolic Blood Pressure NBP 130 1 BRITTNI LU LABOR CREW SUPERVISOR-SWING FRAME 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 [facility] 04-11-2022 14:30-0400 Diastolic Blood Pressure NBP 93 1 BRITTNI POPEDEZ LABOR CREW SUPERVISOR-SWING FRAME 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 [facility] 04-11-2022 14:30-0400 Heart rate 70 /min BRITTNI LU LABOR CREW SUPERVISOR-SWING FRAME 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 [facility] 04-11-2022 14:30-0400 Respiratory rate 14 /min BRITTNI LU LABOR CREW SUPERVISOR-SWING FRAME 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 [facility] 04-11-2022 14:30-0400 Systolic Blood Pressure NBP 126 1 BRITTNI POPEDEZ LABOR CREW SUPERVISOR-SWING FRAME 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 [facility] 04-11-2022 14:15-0400 Diastolic blood pressure 97 mm[Hg] BRITTNI LU LABOR CREW SUPERVISOR-SWING FRAME 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 [facility] 04-11-2022 14:15-0400 Heart rate 77 /min BRITTNI LU LABOR CREW SUPERVISOR-SWING FRAME 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 [facility] 04-11-2022 14:15-0400 Mean blood pressure 112 mm[Hg] BRITTNI LU LABOR CREW SUPERVISOR-SWING FRAME 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 [facility] 04-11-2022 14:15-0400 Systolic blood pressure 142 mm[Hg] BRITTNI LU LABOR CREW SUPERVISOR-SWING FRAME 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 [facility] 04-11-2022 14:10-0400 Diastolic blood pressure 111 mm[Hg] BRITTNI LU LABOR CREW SUPERVISOR-SWING FRAME 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 [facility] 04-11-2022 14:10-0400 Heart rate 76 /min BRITTNI LU LABOR CREW SUPERVISOR-SWING FRAME 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 [facility] 04-11-2022 14:10-0400 Mean blood pressure 124 mm[Hg] BRITTNI LU LABOR CREW SUPERVISOR-SWING FRAME 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 [facility] 04-11-2022 14:10-0400 Systolic blood pressure 150 mm[Hg] BRITTNI LU LABOR CREW SUPERVISOR-SWING FRAME 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 [facility] 04-11-2022 14:05-0400 Heart rate 85 /min BRITTNI LU LABOR CREW SUPERVISOR-SWING FRAME 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 [facility] 04-11-2022 14:05-0400 Mean blood pressure 96 mm[Hg] BRITTNI LU LABOR CREW SUPERVISOR-SWING FRAME 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 [facility] 04-11-2022 13:05-0400 Body temperature 97.88 [degF] BRITTNI LU LABOR CREW SUPERVISOR-SWING FRAME 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 [facility] 03-26-2022 11:47-0400 Body height 167.6 cm ERI PATRICK LABOR CREW SUPERVISOR-SWING FRAME 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 [facility] 03-26-2022 11:47-0400 Body temperature 98.06 [degF] ERI PATRICK LABOR CREW SUPERVISOR-SWING FRAME 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 [facility] 03-26-2022 11:47-0400 Body weight 45.4 kg ERI ROSAMAYRA LABOR CREW SUPERVISOR-SWING FRAME 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 [facility] 03-26-2022 11:47-0400 Body weight 16.16 kg/m2 ERI ROSALetaENGLISH LABOR CREW SUPERVISOR-SWING FRAME 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 [facility] 03-26-2022 11:47-0400 diastolic 88 mm[Hg] ERI PATRICK LABOR CREW SUPERVISOR-SWING FRAME 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 [facility] 03-26-2022 11:47-0400 Heart rate 76 /min ERI PATRICK LABOR CREW SUPERVISOR-SWING FRAME 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 [facility] 03-26-2022 11:47-0400 Respiratory rate 18 /min ERI PATRICK LABOR CREW SUPERVISOR-SWING FRAME 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 [facility] 03-26-2022 11:47-0400 systolic 132 mm[Hg] ERI OMER [facility] 12-21-2021 10:38-0500 Body height 167.6 cm FLIP MARTIN MD [facility] 12-21-2021 10:38-0500 Body temperature 98.06 [degF] FLIP MARTIN MD [facility] 12-21-2021 10:38-0500 Body weight 47.7 kg FLIP MARTIN MD [facility] 12-21-2021 10:38-0500 Body weight 16.98 kg/m2 FLIP MARTIN MD [facility] 12-21-2021 10:38-0500 diastolic 101 mm[Hg] FLIP MARTIN MD [facility] 12-21-2021 10:38-0500 Heart rate 81 /min FLIP MARTIN MD [facility] 12-21-2021 10:38-0500 Respiratory rate 16 /min FLIP MARTIN MD [facility] 12-21-2021 10:38-0500 systolic 129 mm[Hg] FLIP MARTIN MD [facility] 07-14-2021 10:43-0400 Body temperature 98.42 [degF] Flip Martin [facility] 07-14-2021 10:43-0400 Diastolic blood pressure 83 mm[Hg] Flip Martin [facility] 07-14-2021 10:43-0400 Heart rate 68 /min Flip Martin [facility] 07-14-2021 10:43-0400 Respiratory rate 18 /min Flip Martin [facility] 07-14-2021 10:43-0400 SaO2% (BldA) [Mass fraction] 100 % Flip Martin [facility] 07-14-2021 10:43-0400 Systolic blood pressure 129 mm[Hg] Flip Martin [facility] 07-14-2021 07:44-0400 Body weight 47.7 kg Flip Martin [facility] Encounters Encounter Date Encounter Type Care Provider Facility Start: 05-27-2025 End: 05-30-2025 Evaluation and management of inpatient DR OLI HERRERA MD [facility] Start: 05-26-2025 End: 05-26-2025 Emergency department [facility] Start: 05-25-2025 End: 05-26-2025 Emergency department patient visit DR ARLEY MARIE DO [facility] Start: 05-17-2025 End: 05-17-2025 Telephone encounter Ben Fonseca MD Work Phone: [facility] Start: 05-11-2025 ambulatory OLE PACE MD Faci lity:A Start: 05-11-2025 End: 05-11-2025 ambulatory OLE PACE MD Facility:A Start: 05-08-2025 End: 05-09-2025 Emergency department patient visit JASKARAN MEDRANO MD [facility] Start: 05-04-2025 End: 05-07-2025 Emergency department patient visit OLE PACE MD Facility:A Start: 05-04-2025 End: 05-07-[address] RHIANNON ARTEAGA MD [facility] Start: 05-03-2025 End: 05-03-2025 Emergency department patient visit [facility] Start: 05-03-2025 End: 05-03-2025 Emergency department patient visit GUCCI ALEXANDRE MD [facility] Start: 05-02-2025 End: 05-03-2025 Emergency department patient visit GABBY ELENA [facility] Start: 04-29-2025 End: 04-29-2025 Emergency department patient visit [facility] Start: 04-11-2025 End: 04-11-2025 ambulatory OLE PACE MD Facility:A Start: 04-11-2025 End: 04-11-2025 Patient encounter procedure LEONARDO PENA APRN-SWING FRAME 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 [facility] Start: 04-09-2025 End: 04-09-2025 Emergency department patient visit Dr. Jatin Garcia MD Work Phone: -Emergency Department Work Phone: Start: 04-06-2025 End: 04-07-2025 Emergency department patient visit OLE PACE MD Facility:A Start: 04-06-2025 End: 04-07-2025 Observation BHUPENDRA GALVEZ DO [facility] Start: 04-05-2025 ambulatory PINA PANTOJA APRN-SWING FRAME 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 Facility:A Start: 04-04-2025 End: 04-05-2025 Emergency department patient visit OLE PACE MD Facility:A Start: 04-04-2025 End: 04-05-[address] RHIANNON ARTEAGA MD [facility] Start: 04-04-2025 ambulatory OLE PACE MD Faci lity:A Start: 04-03-2025 End: 04-03-2025 Emergency department patient visit CHRISTO SCALES [facility] Start: 04-01-2025 End: 04-01-2025 Emergency department patient visit GONZALEZ GUDINO [facility] Start: 03-30-2025 End: 03-30-2025 ambulatory GONZALEZ SANDERS MD Facility:A Start: 03-30-2025 End: 03-30-2025 Patient encounter procedure GONZALEZ SANDERS MD [facility] Start: 03-25-[address] MADELINE APARICIO MD Facil ity:A Start: 03-23-2025 End: 03-23-2025 Emergency department patient visit [facility] Start: 03-15-2025 End: 03-15-2025 Emergency department patient visit GUCCI ALEXANDRE MD [facility] Start: 03-09-2025 End: 03-09-2025 Emergency department patient visit DELMAR MICHAEL DO [facility] Start: 03-08-2025 End: 03-08-2025 Emergency department patient visit GUCCI [facility] Start: 03-08-2025 End: 03-08-2025 ambulatory GONZALEZ SANDERS MD Facility:A Start: 03-08-2025 End: 03-08-2025 Patient encounter procedure GONZALEZ SANDERS MD [facility] Start: 03-07-2025 End: 03-07-2025 Emergency department patient visit ALICIA LORA [facility] Start: 03-05-2025 End: 03-06-2025 Emergency department patient visit GONZALEZ [facility]UD[facility] Start: 02-16-2025 End: 02-16-2025 ambulatory OLE MONK MD Facility:A Start: 02-16-2025 End: 02-16-2025 SAME DAY STAY PINA A AVILA LABOR CREW SUPERVISOR-SWING FRAME 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 [facility] Start: 02-14-2025 End: 02-14-2025 ambulatory OLE PACE MD Facility:A Start: 02-10-2025 End: 02-10-2025 Emergency department patient visit [facility] Start: 02-01-2025 ambulatory PINAALICE PANTOJA LABOR CREW SUPERVISOR-SWING FRAME 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 Facility:A Start: 01-29-2025 End: 01-29-2025 Emergency department patient visit [facility] Start: 01-21-2025 End: 01-21-2025 Emergency department patient visit BEATRICE GUDINO [facility] Start: 12-22-2024 ambulatory CLOTILDE RANDHAWA DO Fac ility:A Start: 12-22-2024 End: 12-22-2024 ambulatory CLOTILDE RANDHAWA DO Facility:A Start: 12-22-2024 End: 12-22-2024 SAME DAY STAY NASRIN ISABEL MD [facility] Start: 12-13-2024 End: 12-13-2024 ambulatory OLE PACE MD Facility:A Start: 12-10-2024 End: 12-10-2024 Emergency department patient visit GONZALEZ GUDINO [facility] Start: 11-15-2024 End: 11-19-2024 ambulatory NASRIN ISABEL MD Facility:A Start: 11-15-2024 End: 11-15-2024 ambulatory NASRIN ISABEL MD Facility:A Start: 11-06-2024 End: 11-06-2024 Emergency department patient visit KORINA LORA [facility] Start: 10-13-2024 End: 10-13-2024 ambulatory VON BACA MD Facility:A Start: 10-01-2024 ambulatory TADEO LEIJA PA-C Fa cility:A Start: 09-28-2024 End: 09-28-2024 ambulatory OLE PACE MD Facility:A Start: 08-31-2024 End: 08-31-2024 Emergency department patient visit ALICIA LORA [facility] Start: 08-16-2024 End: 08-16-2024 ambulatory OLE PACE MD Facility:A Start: 08-11-2024 End: 08-11-2024 ambulatory NAYELI BRICE DO Facility:A Start: 08-11-2024 End: 08-11-2024 SAME DAY STAY NASRIN ISABEL MD [employer] Start: 08-06-2024 End: 08-06-2024 Admission to establishment NASRIN ISABEL MD [employer] Start: 08-06-2024 End: 08-06-2024 ambulatory NASRIN ISABEL MD Facility:A Start: 07-19-2024 End: 07-19-2024 ambulatory OLE PACE MD Facility:A Start: 07-10-2024 ambulatory FLIP LORA [facility] Start: 07-10-2024 End: 07-10-2024 Emergency department patient visit [facility] Start: 06-24-2024 End: 06-24-2024 Emergency department patient visit [facility] Start: 06-21-2024 End: 06-21-2024 ambulatory PROVIDER NOT SPECIFIED OTHER Facility:A Start: 06-10-2024 ambulatory PROVIDER NOT SPECIFIED OTHER Facility:A Start: 06-10-2024 ambulatory PROVIDER NOT SPECIFIED OTHER Facility:A Start: 06-09-2024 End: 06-09-2024 ambulatory VIRAL MANUEL MD Facility:A Start: 06-09-2024 End: 06-09-2024 SAME DAY STAY NASRIN ISABEL MD [employer] Start: 05-25-2024 ambulatory PROVIDER NOT SPECIFIED OTHER Facility:A Start: 05-24-2024 End: 05-24-2024 ambulatory PROVIDER NOT SPECIFIED OTHER Facility:A Start: 04-28-2024 End: 04-28-2024 ambulatory PROVIDER NOT SPECIFIED OTHER Facility:A Start: 04-14-2024 End: 04-14-2024 ambulatory DAVID SMITH MD Facility:A Start: 04-14-2024 End: 04-14-2024 SAME DAY STAY OLE PACE MD [employer] Start: 03-04-2024 End: 03-04-2024 Patient encounter procedure OLE PACE MD [facility] Start: 03-03-2024 End: 03-04-2024 ambulatory PROVIDER NOT SPECIFIED OTHER Facility:A Start: 03-03-2024 End: 03-03-2024 SAME DAY STAY OLE PACE MD [employer] Start: 02-04-2024 End: 02-04-2024 ambulatory NONE PHYSICIAN Facility:A Start: 01-21-2024 End: 01-21-2024 ambulatory HILDA HADDAD MD Facility:A Start: 01-21-2024 End: 01-21-2024 SAME DAY STAY OLE PACE MD [facility] Start: 01-13-2024 ambulatory NONE PHYSICIAN Facility :A Start: 01-06-2024 End: 01-06-2024 ambulatory NONE PHYSICIAN Facility:A Start: 01-06-2024 End: 01-06-2024 Patient encounter procedure OLE PACE MD [facility] Start: 12-17-2023 ambulatory NONE PHYSICIAN Facility :A Start: 12-08-2023 End: 12-08-2023 ambulatory NONE PHYSICIAN Facility:A Start: 12-08-2023 End: 12-08-2023 Patient encounter procedure OLE PACE MD [employer] Start: 12-08-2023 End: 12-08-2023 ambulatory NONE PHYSICIAN Facility:A Start: 12-03-2023 End: 12-03-2023 ambulatory RITA YEH MD Facility:A Start: 12-03-2023 End: 12-03-2023 SAME DAY STAY BRITTNI LU LABOR CREW SUPERVISOR-SWING FRAME 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 [facility] Start: 11-19-2023 End: 11-19-2023 ambulatory NONE PHYSICIAN Facility:A Start: 11-19-2023 End: 11-19-2023 Patient encounter [facility] Start: 10-22-2023 End: 10-22-2023 ambulatory VIRAL MASON MD, Ph.D Facility:A Start: 10-22-2023 End: 10-22-2023 SAME DAY STAY BRITTNI POPEDEZ LABOR CREW SUPERVISOR-SWING FRAME 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 [facility] Start: 09-12-2023 End: 09-12-2023 ambulatory FLIP MARTIN MD Facility:A Start: 09-12-2023 End: 09-12-2023 Patient encounter procedure OLE PACE MD [facility] Start: 08-28-2023 End: 08-28-2023 ambulatory FLIP MARTIN MD Facility:A Start: 08-25-2023 ambulatory FLIP MARTIN MD Facili ty:A Start: 08-21-2023 End: 08-21-2023 ambulatory FLIP MARTIN MD Facility:A Start: 08-21-2023 End: 08-21-2023 Patient encounter procedure OLE PACE MD [facility] Start: 07-30-2023 End: 08-03-2023 ambulatory FLIP MARTIN MD Facility:A Start: 07-30-2023 End: 07-30-2023 ambulatory FLIP MARTIN MD Facility:A Start: 07-30-2023 End: 07-30-2023 Patient encounter procedure FLIP MARTIN MD [facility] Start: 07-24-2023 End: 07-24-2023 ambulatory MARIN COTE MD Facility:A Start: 07-24-2023 End: 07-24-2023 SAME DAY STAY FLIP MARTIN MD [facility] Start: 07-18-2023 ambulatory FLIP MARTIN MD Facili ty:A Start: 07-08-2023 End: 07-16-2023 Evaluation and management of inpatient FLIP MARTIN MD [facility] Start: 07-08-2023 ambulatory FLIP MARTIN MD Facili ty:A Start: 06-26-2023 End: 06-26-2023 ambulatory FLIP MARTIN MD Facility:A Start: 06-26-2023 End: 06-26-2023 Patient encounter procedure FLIP MARTIN MD [facility] Start: 05-15-2023 End: 05-15-2023 Patient encounter procedure FLIP MARTIN MD [facility] Start: 04-27-2023 End: 05-07-2023 Evaluation and management of inpatient FLIP MARTIN MD [facility] Start: 02-23-2023 End: 03-05-2023 Evaluation and management of inpatient FLIP MARTIN MD [facility] Start: 02-17-2023 End: 02-17-2023 Patient encounter procedure BRITTNI DUPREESWING FRAME 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 [facility] Start: 01-01-2023 End: 01-06-2023 Evaluation and management of inpatient FLIP MARTIN MD [facility] Start: 01-01-2023 End: 01-01-2023 Patient encounter procedure FLIP MARTIN MD [facility] Start: 01-01-2023 End: 01-01-2023 Patient encounter procedure FLIP MARTIN MD [facility] Start: 11-15-2022 End: 11-15-2022 Patient encounter procedure BRITTNI LU LABOR CREW SUPERVISOR-SWING FRAME 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 [facility] Start: 09-30-2022 End: 10-08-2022 Evaluation and management of inpatient FLIP MARTIN MD [facility] Start: 09-27-2022 End: 09-27-2022 Emergency department patient visit GUCCI ALEXANDRE MD [facility] Start: 08-08-2022 End: 08-16-2022 Evaluation and management of inpatient FLIP MARTIN MD [facility] Start: 08-08-2022 End: 08-08-2022 Patient encounter procedure BRITTNI LU LABOR CREW SUPERVISOR-SWING FRAME 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 [facility] Start: 07-04-2022 End: 07-04-2022 Patient encounter procedure BRITTNI LU LABOR CREW SUPERVISOR-SWING FRAME 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 [facility] Start: 04-14-2022 End: 04-19-2022 Evaluation and management of inpatient FLIP MARTIN MD [facility] Start: 04-11-2022 End: 04-11-2022 Patient encounter procedure BRITTNI LU LABOR CREW SUPERVISOR-SWING FRAME 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 [facility] Start: 03-26-2022 End: 03-26-2022 Patient encounter procedure ERI PATRICK LABOR CREW SUPERVISOR-SWING FRAME 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 [facility] Start: 02-21-2022 End: 02-21-2022 Patient encounter procedure FLIP MARTIN MD [facility] Start: 12-21-2021 End: 12-21-2021 Patient encounter procedure FLIP MARTIN MD [facility] Start: 08-23-2021 End: 08-23-2021 Patient encounter procedure FLIP MARTIN MD [facility] Start: 07-11-2021 End: 07-14-2021 Evaluation and management of inpatient Shira Teran [facility] [id number] Procedures Date Procedure Procedure Detail Performing Clinician Start: 05-26-2025 Urinalysis ALICIA ROBLEDO Comment on above: Result Comment: URIN ALYSIS Performed By: #### [id number] ####[place] [id number] Start: 05-05-2025 Exchange nephrostomy catheter prq w/img gid rs&i DR ARLEY MARIE DO Start: 05-03-2025 End: 05-03-2025 Urinalysis ALICIA RODRIGUEZ Comment on above: Result Comment: URIN ALYSIS Performed By: #### [id number] ####[place] [id number] Start: 04-09-2025 Urnls dip stick/tabl et reagent auto microscopy Dr. Jatin Garcia MD Work Phone: Start: 04-09-[address] Jatin Garcia MD Work Phone: Start: 04-03-2025 Urinalysis ALICIA MACIAS COMB Comment on above: Result Comment: URIN ALYSIS Performed By: #### [id number] ####[facility] [place],[address] [place] [address] Start: 04-01-2025 Urinalysis ALICAI MC COMB Comment on above: Result Comment: URIN ALYSIS Performed By: #### [id number] ####[facility] [place],[address] [place] [address] Start: 03-23-2025 Urinalysis ALICIA MC COMB Comment on above: Result Comment: URIN ALYSIS Performed By: #### [id number] ####[facility] [place],[address] [place] [address] Start: 03-05-2025 Urinalysis ALICIA MC COMB Comment on above: Result Comment: URIN ALYSIS Performed By: #### [id number] ####[facility] [place],[address] [place] [address] Start: 02-16-2025 Exchange nephrostomy catheter prq w/img gid rs&i GONZALEZ SANDERS MD Start: 02-10-2025 Urinalysis ALICIA [facility] COM[facility] Comment on above: Result Comment: URIN ALYSIS Performed By: #### [id number] ####[place] [id number] Start: 02-10-2025 Urinalysis ALICIA MC COMB Comment on above: Result Comment: URIN ALYSIS Performed By: #### [id number] ####[place] [id number] Start: 01-29-2025 Urinalysis ALICIA MC COMB Comment on above: Result Comment: URIN ALYSIS Performed By: #### [id number] ####[facility] [place],[address] [place] [address] Start: 12-22-2024 Exchange nephrostomy catheter prq w/img gid rs&i GONZALEZ SANDERS MD Start: 12-22-2024 Removal of implantab le venous access port GONZALEZ SANDERS MD Start: 12-10-2024 Urinalysis ALICIA ROBLEDO Comment on above: Result Comment: URIN ALYSIS Performed By: #### [id number] ####[facility] [place],[address] [place] [address] Start: 11-06-2024 End: 11-06-2024 Urinalysis ALICIA RODRIGUEZ Comment on above: Result Comment: URIN ALYSIS Performed By: #### [id number] ####[facility] [place],[address] [place] [address] Start: 10-13-2024 Exchange nephrostomy catheter prq w/img gid rs&i GONZALEZ SANDERS MD Start: 07-10-2024 Urinalysis ALICIA ROBLEDO Comment on above: Result Comment: URIN ALYSIS Performed By: #### [id number] ####[facility] [place],[address] [place] [address] Start: 06-16-2024 JJ-stent (physical object) NASRIN ISABEL MD Comment on above: left Start: 06-16-2024 Nephrostomy using fluoroscopic guidance NASRIN ISABEL MD Comment on above: left Start: 10-05-2023 Nephrostomy tube (physical object) OLE [...] Implantable venous access port (physical object) GONZALEZ SANDERS MD Start: 11-03-2019 Cervical biopsy FLIP MARTIN MD Comment on above: pt states she had a cervical biopsy done on 04/07/2020 at [facility] for a cervical mass Start: 11-03-2001 Tumor cells, benign (morphologic abnormality) FLIP MARTIN MD Comment on above: 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 done at [facility] in [place] Cannulation of subcutaneous reservoir FLIP MARTIN MD Comment on above: right History of radiation therapy History of radiation therapy( Confirmed ) FLIP MARTIN MD Nephrostomy with tub e drainage FLIP MARTIN MD Comment on above: left Plan of Treatment Date Care Activity Detail Author Start: 2063 RSV Immunization for Adults (1 - 1-dose 75+ series) RSV Immunization for Adults (1 - 1-dose 75+ series) [facility] Start: 2038 Zoster Vaccines (1 of 2) Zoster Vaccines (1 of 2) [facility] Start: 07-04-2025 Influenza vaccination Influenza Vaccine (#1) [facility] Start: 05-26-2025 End: 05-26-2025 Patient encounter procedure 05/26/2025 2:00 PM EDT Office Visit [facility] [address] [place] [address] Ben Fonseca MD [address] [place] [address] [facility] Start: 04-09-2025 [facility] Start: 07-04-2024 COVID-19 Vaccine ( season) COVID-19 Vaccine ( season) [facility] Start: 08-09-2021 Patient encounter procedure [facility] Lynmary anneurst Start: 07-14-2021 End: 07-15-2022 Pneumococcal 13-Valent (PREVNAR 13) Vaccine 0.5 mL IntraMuscular Once ; DOSE = 0.5 mL IntraMuscular Once Start: 14-Jul-2021 End: 14-Jul-2022 Ordered: 13-Jul-2021 Alycia Pritchett [facility] Start: 2018 Screening for malignant neoplasm of cervix [facility] Start: 2009 Screening for malignant neoplasm of cervix Pap Smear [facility] Start: 2007 DTaP/Tdap/Td Vaccines (1 - Tdap) DTaP/Tdap/Td Vaccines (1 - Tdap) [facility] Start: 2007 Hepatitis B Vaccines (1 of 3 - 19+ 3-dose series) Hepatitis B Vaccines (1 of 3 - 19+ 3-dose series) [facility] Start: 2006 Hepatitis C screening Hepatitis C Screening [facility] Start: 2001 Varicella vaccination Varicella Vaccines (1 of 2 - 13+ 2-dose series) [facility] Start: 2000 Depression Screening Depression Screening [facility] Start: 1989 MMR Vaccines (1 of 1 - Standard series) MMR Vaccines (1 of 1 - Standard series) [facility] Start: 1988 HIV screening HIV Screening [facility] Patient Education ED Kidney Stone with [facility] Work Phone: Patient referral [facility] Work Phone: 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 [facility] Immunizations Immunization Date Immunization Notes Care Provider Fa irish 06-16-2001 hepatitis B pediatri c vaccine BRITTNI LU [employer] 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[employer] 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 [facility] 06-16-2001 measles/mumps/rubell a virus vaccine BRITTNI LU [employer] SUPERVISOR-[employer]ING [employer] 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 [facility] 06-21-1998 hepatitis B pediatri c vaccine BRITTNI LU [employer] SUPERVISOR-[employer]ING [employer] 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 [facility] 04-06-1990 measles/mumps/rubell a virus vaccine BRITTNI LU [employer] SUPERVISOR-[employer]ING [employer] 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 [facility] Payers Date Payer Category Payer Medicare [id number] 2024 Self-pay 2024 Medicare [id number] 2023 Private Health Insurance [id number] 2022 Medicaid [id number] 2022 Private Health Insurance [id number] 1988 Unknown [id number] .1.704370.3.579.2 1988 Unknown [id number] .1.109118.3.579.2 1988 Unknown [id number] .1.936988.3.579.2 1988 Unknown [id number] 840.1.392205.3.579.2 1988 Unknown [id number] 12.19.830.1.641564.3.579.2 1988 Unknown [id number] .1.051811.3.579.2 1988 Unknown [id number] 12.19.830.1.628498.3.579.2 1988 Unknown [id number] 840.1.622270.3.579.2. 1988 Unknown [id number] 2.840.1.997868.3.579.2 1988 Unknown [id number] 2.16840.1.093834.3.579.2 1988 Unknown [id number] 2840.1.211758.3.579.2. 1988 Unknown [id number] 2.840.1.807523.3.579.2 1988 Unknown [id number] 2840.1.980522.3.579.2 1988 Unknown [id number] 2840.1.367823.3.579.2 1988 Unknown [id number] 840.1.908958.3.579.2 1988 Unknown [id number] 2840.1.944833.3.579.2 1988 Unknown [id number] 840.1.015642.3.579.2 1988 Unknown [id number] 2840.1.851334.3.579.2. 1988 Unknown [id number] 2840.1.344077.3.579.2 1988 Unknown [id number] 840.1.076435.3.579.2 1988 Unknown [id number] 840.1.650602.3.579.2 1988 Unknown [id number] 2840.1.786005.3.579.2 1988 Unknown [id number] 2840.1.823685.3.579.2 1988 Unknown [id number] 2.16.840.1.829458.3.579.2. 1988 Unknown [id number] 2.16.840.1.162966.3.579.2 1988 Unknown [id number] 2.16.840.1.560576.3.579.2 1988 Unknown [id number] 2.16840.1.937588.3.579.2 1988 Unknown [id number] 2.16840.1.820636.3.579.2 1988 Unknown [id number] 2.16840.1.600843.3.579.2 1988 Unknown [id number] 2.16840.1.791500.3.579.2 1988 Unknown [id number] 2.16840.1.286406.3.579.2 1988 Unknown [id number] 2.16840.1.008461.3.579.2 1988 Unknown [id number] 2.16840.1.015919.3.579.2 1988 Unknown [id number] 2.16840.1.373747.3.579.2 1988 Unknown [id number] 2.16840.1.447052.3.579.2 1988 Unknown [id number] 2.16840.1.274300.3.579.2 1988 Unknown [id number] 2.16840.1.710692.3.579.2 1988 Unknown [id number] 2.16840.1.391279.3.579.2 1988 Unknown [id number] 2.16840.1.378817.3.579.2. 627 1988 Unknown [id number] 2.16840.1.817854.3.579.2 1988 Unknown [id number] 2.16840.1.578534.3.579.2. 1988 Unknown [id number] .840.1.569317.3.579.2 1988 Unknown [id number] 2.840.1.514016.3.579.2. 1988 Unknown [id number] .840.1.566634.3.579.2 1988 Unknown [id number] .840.1.652057.3.579.2 1988 Unknown [id number] .1.692637.3.579.2 1988 Unknown [id number] .840.1.254712.3.579.2 1988 Unknown [id number] 84.1.164337.3.579.2 1988 Unknown [id number] 840.1.921589.3.579.2 1988 Unknown [id number] .1.354267.3.579.2 1988 Unknown [id number] 840.1.454439.3.579.2 1988 Unknown [id number] 840.1.947689.3.579.2 1988 Unknown [id number] 840.1.128566.3.579.2 1988 Unknown [id number] 840.1.119475.3.579.2 1988 Unknown [id number] 840.1.370479.3.579.2. 627 1988 Unknown [id number] 2.16840.1.388582.3.579.2. 62 1988 Unknown [id number] 2.16.840.1.082167.3.579.2. 627 1988 Unknown [id number] 2.16840.1.155326.3.579.2. 62 1988 Unknown [id number] 2.16840.1.262157.3.579.2. 627 1988 Unknown [id number] 2.16840.1.871877.3.579.2. 62 1988 Unknown [id number] 2.840.1.225483.3.579.2. 62 1988 Unknown [id number] 2.840.1.970457.3.579.2. 62 1988 Unknown [id number] 2.840.1.656879.3.579.2. 62 1988 Unknown [id number] 2.840.1.254160.3.579.2. 62 1988 Unknown [id number] 2.16840.1.313884.3.579.2. 65 1988 Unknown [id number] 2.840.1.464216.3.579.2. 65 1988 Unknown [id number] 2.16840.1.716359.3.579.2. 651 1988 Unknown [id number] 2.16840.1.791096.3.579.2. 65 1988 Unknown [id number] 2.16840.1.463754.3.579.2. 651 1988 Unknown [id number] 2.16840.1.179588.3.579.2. 65 1988 Unknown [id number] 2.16.840.1.094731.3.579.2. 651 1988 Unknown [id number] 2.16.840.1.366872.3.579.2. 651 1988 Unknown [id number] 2.16.840.1.615726.3.579.2. 651 1988 Unknown [id number] 2.16840.1.410870.3.579.2. 651 1988 Unknown [id number] 2.16.840.1.986124.3.579.2. 651 1988 Unknown [id number] 2.16840.1.543647.3.579.2. 651 1988 Unknown [id number] 2.16840.1.378090.3.579.2. 651 1988 Unknown [id number] 2.16840.1.973663.3.579.2. 651 1988 Unknown [id number] 2.16840.1.164206.3.579.2. 651 1988 Unknown [id number] 2.16840.1.031329.3.579.2. 651 1988 Unknown [id number] 2.16840.1.176607.3.579.2. 651 1988 Unknown [id number] 2.16840.1.315376.3.579.2. 651 1988 Unknown [id number] 2.16840.1.002560.3.579.2. 651 1988 Unknown [id number] 2.16840.1.824677.3.579.2. 651 Unknown [facility] PL[facility] Medicare [id number] Unknown [id number] 2.16840.1.698119.3.579.2. 462 Social History Date Type Detail Facility [facility] Tobacco smoking consumption unknown [facility] Start: 04-12-2020 End: 02-16-2025 Light tobacco smoker (finding) [facility] Comment on above: current vaping Start: 1990 Sex Assigned At Female A [facility] Start: 07-09-2023 End: 12-16-2024 Tobacco smoking status Ex-smoker (finding) [facility] Comment on above: current vaping Tobacco smoking status Never [facility] Comment on above: current vaping Sexual Orientation [facility] Start: 04-10-2020 End: 05-16-2025 Sex Female (finding) [facility] Start: 04-09-2025 Tobacco smoking stat [facility] Smokes tobacco daily (finding) [facility] Start: 1988 Sex assigned at Not on file [facility] Gender identity Not on file [facility] Medical Equipment Procedure Code Equipment Code [...] Assessment Result Facility 03-09-2025 Functional Status Independent [facility] 03-09-2025 Functional Status Standard Safet y ID band on, Call device within reach, Bed in low position, Wheels locked, Upper/Half-Length side-rails up, Phone within reach, personal items within reach, Assistive devices within reach, Bedside Cart Locked, Law enforcement present [facility] 02-16-2025 Functional Status Awake, Resting [facility] 02-16-2025 Functional Status Less than 8 hours [facility] 12-22-2024 Functional Status Independent [facility] 12-22-2024 Functional Status Repositions self [facility] 12-22-2024 Functional Status Maintained [facility] 12-16-2024 Functional Status [facility] 08-11-2024 Functional Status Independent [facility] 08-11-2024 Functional Status Repositions self [facility] 08-11-2024 Functional Status Maintained [facility] 08-06-2024 Functional Status Sensory Deficits None [facility] 06-09-2024 Functional Status Awake, Up ad marisa [facility] 06-09-2024 Functional Status [facility] 06-09-2024 Functional Status Maintained [facility] 04-14-2024 Functional Status Awake, Resting [facility] 04-14-2024 Functional Status Sensory Deficits None [facility] 03-03-2024 Functional Status Awake, Resting [facility] 03-03-2024 Functional Status [facility] 03-03-2024 Functional Status [facility] 01-21-2024 Functional Status Awake, Resting [facility] 01-21-2024 Functional Status Independent [facility] 01-21-2024 Functional Status Maintained [facility] 12-03-2023 Functional Status Up ad marisa [facility] 12-03-2023 Functional Status ID band on, Allergy Band on, Call device within reach, Bed in low position, Wheels locked, Upper/Half-Length side-rails up, Phone within reach, personal items within reach, Visitor at bedside, Non-Slip footwear [facility] 12-03-2023 Functional Status Maintained [facility] 10-22-2023 Functional Status Awake [facility] 10-22-2023 Functional Status [facility] 10-22-2023 Functional Status Maintained [facility] 07-24-2023 Functional Status Awake [facility] 07-24-2023 Functional Status [facility] 07-24-2023 Functional Status Maintained [facility] 07-16-2023 Functional Status Room check performed [facility] 07-16-2023 Functional Status [facility] 07-16-2023 Functional Status [facility] 07-15-2023 Functional Status [facility] 07-15-2023 Functional Status [facility] 07-15-2023 Functional Status [facility] 07-15-2023 Functional Status Dinner Percent 75 [facility] 07-15-2023 Functional Status [facility] 07-15-2023 Functional Status [facility] 07-14-2023 Functional Status [facility] 07-14-2023 Functional Status Maintained [facility] 07-14-2023 Functional Status [facility] 07-13-2023 Functional Status [facility] 07-13-2023 Functional Status [facility] 07-13-2023 Functional Status Independent [facility] 07-13-2023 Functional Status [facility] 07-12-2023 Functional Status [facility] 07-11-2023 Functional Status Done [facility] 07-11-2023 Functional Status [facility] 07-10-2023 Functional Status [facility] 07-10-2023 Functional Status [facility] 07-09-2023 Functional Status Beds/Devices H ospital bed, pressure reduction mattress [facility] 07-09-2023 Functional Status Personal ADL [facility] 07-09-2023 Functional Status Sensory Deficits None [facility] 05-07-2023 Functional Status Room check performed [facility] 05-07-2023 Functional Status [facility] 05-07-2023 Functional Status [facility] 05-07-2023 Functional Status [facility] 05-06-2023 Functional Status [facility] 05-05-2023 Functional Status Lunch Percent 75 [facility] 05-05-2023 Functional Status [facility] 05-04-2023 Functional Status Patient refused [facility] 05-03-2023 Functional Status Hospital bed [facility] 05-02-2023 Functional Status Done [facility] 05-02-2023 Functional Status [facility] 05-01-2023 Functional Status [facility] 04-30-2023 Functional Status Feeding Assistance Inde pendent [facility] 04-29-2023 Functional Status [facility] 04-29-2023 Functional Status NPO Status Maintained [facility] 04-28-2023 Functional Status Sensory Deficits None [facility] 03-05-2023 Functional Status 75 [facility] 03-05-2023 Functional Status Not done 1 [facility] 03-05-2023 Functional Status Non-Slip footw ear, Room check performed [facility] 03-04-2023 Functional Status [facility] 03-04-2023 Functional Status [facility] 03-04-2023 Functional Status Independent [facility] 03-02-2023 Functional Status [facility] 03-01-2023 Functional Status [facility] 03-01-2023 Functional Status Repositions self [facility] 03-01-2023 Functional Status [facility] 02-28-2023 Functional Status [facility] 02-28-2023 Functional Status [facility] 02-28-2023 Functional Status SCD Removed/Of f bilateral knee [facility] 02-28-2023 Functional Status [facility] 02-27-2023 Functional Status [facility] 02-27-2023 Functional Status [facility] 02-27-2023 Functional Status [facility] 02-25-2023 Functional Status [facility] 02-24-2023 Functional Status [facility] 02-24-2023 Functional Status Living Situation Lives alone [facility] 02-24-2023 [facility] Functional Status Ambulating in avila, Ambulating in room, Up ad marisa, Up to bathroom [facility] 02-17-2023 Functional Status Maintained [facility] 01-06-2023 Functional Status None [facility] 01-06-2023 Functional Status SCD Removed/Of f bilateral knee [facility] 01-06-2023 Functional Status [facility] 01-06-2023 Functional Status [facility] 01-06-2023 Functional Status Yes [facility] 01-06-2023 Functional Status Room check performed [facility] 01-05-2023 Functional Status [facility] 01-04-2023 Functional Status SCD On/Re-appl ied bilateral knee high [facility] 01-03-2023 Functional Status Independent [facility] 01-02-2023 Functional Status NPO Status confirmed [facility] 01-02-2023 Functional Status Living Situation Lives alone [facility] 01-01-2023 Functional Status Awake [facility] 01-01-2023 Functional Status [facility] 11-15-2022 Functional Status ID band on, Allergy Band on, Safety level maintained [facility] 11-15-2022 Functional Status NPO Status confirmed [facility] 11-15-2022 Functional Status [facility] 10-08-2022 Functional Status Yes [facility] 10-08-2022 Functional Status [facility] 10-08-2022 Functional Status [facility] 10-08-2022 Functional Status [facility] 10-07-2022 Functional Status [facility] 10-07-2022 Functional Status High Risk Safe ty Room check performed [facility] 10-07-2022 Functional Status [facility] 10-07-2022 Functional Status [facility] 10-06-2022 Functional Status [facility] 10-06-2022 Functional Status [facility] 10-05-2022 Functional Status [facility] 10-05-2022 Functional Status Hospital bed [facility] 10-05-2022 Functional Status [facility] 10-03-2022 Functional Status Living Situation Lives alone [facility] 10-03-2022 Functional Status Independent 1 [facility] 10-02-2022 Functional Status Mod I 2 [facility] 10-01-2022 Functional Status [facility] 08-16-2022 Functional Status Door open, Room check performed [facility] 08-15-2022 Functional Status Demonstrates C orrect Call Light Use Yes [facility] 08-15-2022 Functional Status [facility] 08-15-2022 Functional Status [facility] 08-15-2022 Functional Status [facility] 08-14-2022 [facility] Status [facility] 08-12-2022 Functional Status [facility] 08-11-2022 Functional Status Assistive Device None [facility] 08-10-2022 Functional Status [facility] 08-10-2022 Functional Status Independent, Setup [facility] 08-09-2022 Functional Status bilateral knee high [facility] 08-09-2022 Functional Status [facility] 08-08-2022 Functional Status Awake, Remains up in chair, Repositions self, Resting [facility] 08-08-2022 Functional Status [facility] 07-04-2022 Functional Status confirmed [facility] 07-04-2022 Functional Status [facility] 04-19-2022 Functional Status Yes [facility] 04-19-2022 Functional Status Patient refused [facility] 04-19-2022 Functional Status Room check performed [facility] 04-18-2022 Functional Status [facility] 04-18-2022 Functional Status [facility] 04-18-2022 Functional Status [facility] 04-18-2022 Functional Status [facility] 04-18-2022 Functional Status SCD Removed/Of f bilateral knee high [facility] 04-18-2022 Functional Status [facility] 04-17-2022 Functional Status [facility] 04-17-[facility] Functional Status [facility] 04-17-2022 Functional Status [facility] 04-16-2022 Functional Status [facility] 04-15-2022 Functional Status [facility] 04-15-2022 Functional Status [facility] 04-15-2022 Functional Status [facility] 04-11-2022 Functional Status confirmed [facility] 04-11-2022 Functional Status Sensory Deficits None [facility] 03-26-2022 Functional Status ID band on, Allergy Band on [facility] Functional observable [facility] Mental Status Date Assessment Result Facility 03-15-2025 Mental Status Orientation Oriented x 4 [facility] 03-09-2025 Mental Status Orientation Oriented x 4 [facility] 03-09-2025 Mental Status [facility] 02-16-2025 Mental Status Oriented x 4 [facility] 12-22-2024 Mental Status Oriented x 4 [facility] 08-11-2024 Mental Status Oriented x 4 [facility] 08-11-2024 Mental Status [facility] 08-11-2024 Mental Status Orientation Asse ssment Oriented x 4 [facility] 06-09-2024 Mental Status Oriented x 4 [facility] 04-14-2024 Mental Status Oriented x 4 [facility] 03-03-2024 Mental Status Orientation Oriented x 4 [facility] 03-03-2024 Mental Status [facility] 03-03-2024 Mental Status [facility] 01-21-2024 Mental Status Orientation Oriented x 4 [facility] 01-21-2024 Mental Status [facility] 01-21-2024 Mental Status [facility] 12-03-2023 Mental Status Orientation Oriented x 4 [facility] 12-03-2023 Mental Status [facility] 12-03-2023 [facility] Status [facility] 10-22-[facility]23 [facility] Status Oriented x 4 [facility] 07-16-2023 Mental Status Oriented x 4 [facility] 07-15-2023 Mental Status [facility] 07-15-2023 Mental Status [facility] 07-14-2023 Mental Status [facility] 05-07-2023 Mental Status Orientation Oriented x 4 [facility] 05-06-2023 Mental Status [facility] 05-06-2023 Mental Status [facility] 05-05-2023 Mental Status Orientation Asse ssment Oriented x 4 [facility] 05-05-2023 Mental Status [facility] 05-05-2023 Mental Status [facility] 03-05-2023 [facility] 03-04-2023 [facility] Status [facility] 03-03-2023 [facility] Mental Status Orientation Oriented x 4 [facility] 02-17-2023 [facility] Mental Status Orientation Oriented x 4 [facility] 01-05-2023 Mental Status [facility] 01-05-2023 Mental Status [facility] 01-02-2023 Mental Status Orientation Asse ssment Oriented x 4 [facility] 01-01-2023 Mental Status [facility] 01-01-2023 Mental Status Orientation Oriented x 4 [facility] 11-15-2022 [facility] Mental Status Orientation Oriented x 4 [facility] 10-08-2022 Mental Status [facility] 10-07-2022 [facility]-06[facility] Mental Status Orientation Asse ssment Oriented x 4 [facility] 10-03-2022 Mental Status [facility] 10-02-2022 Mental Status [facility] 08-16-2022 Mental Status Oriented x 4 [facility] 08-15-2022 Mental Status [facility] 08-14-2022 Mental Status [facility] 08-11-2022 Mental Status [facility] 08-08-2022 Mental Status Orientation Oriented x 4 [facility] 07-04-2022 Mental Status Oriented x 4 [facility] 07-04-2022 Mental Status [facility] 04-19-2022 Mental Status Orientation Oriented x 4 [facility] 04-18-2022 Mental Status [facility] 04-18-2022 Mental Status [facility] 04-11-2022 Mental Status Oriented x 4 [facility] 04-11-2022 Mental Status [facility] 07-13-2021 Cognitive functi ons [id number] [facility] Clinical Notes 07-02-2021 to 05-30-2025 Note Date & Type Note Facility 05-30-2025 Discharge summary Date of Service 05/30/2025 Discharge Diagnosis Complicated UTI Chronic hydronephrosis and left ureteral stone status post nephrostomy tube replacement on May 07, 2025 Cervical cancer in remission Anxiety and depression Chronic asthma not in acute exacerbation Chronic pain syndrome Hospital Course Patient is a 34-year-old female with history of chronic hydronephrosis, chronic left ureteral stone status post recent nephrostomy tube placement in May 07, 2025, asthma, chronic pain syndrome follows with palliative care, anxiety/depression, medication noncompliance who presented on 05/27/2025 presenting with chief complaint of left-sided flank pain associated with nausea but no vomiting. Apparently, patient had an appointment with urology at [facility] to be evaluated for possible nephrectomy and is no longer established with [facility]. She was afebrile but hypertensive on presentation. Lab work with no significant abnormality, urinalysis from nephrostomy tube was concerning for infection. BMP unremarkable. Patient was started on IV ceftriaxone. Urine culture showed mixed growth. Plan was for IR guided nephrostomy tube exchange today prior to discharge however patient decided to leave AGAINST MEDICAL ADVICE prior to nephrostomy tube exchange and my evaluation today. She did not wait for me to come and evaluate her prior to discharge. As per nursing staff, she was alert oriented x 3 and wanted to leave as she was concerned about her cats. She otherwise remained afebrile and hemodynamically stable. I tried to call on the contact number on chart to provide her prescription for antibiotics however this has restriction for outside caller and I was not able to speak with her. Patient does have follow-up appointment with [facility] urology and will require further management. Unfortunately, patient left AGAINST MEDICAL ADVICE and high risk of readmission. Allergies Haldol Tongue swelling Oranges Tongue swelling, Difficulty breathing penicillin Hives Consults No qualifying data available. Physical Exam Vitals and Measurements T: 36.6 C (Oral) TMIN: 36.6 C (Oral) TMAX: 36.8 C (Oral) HR: 53 RR: 18 BP: 125/73 SpO2: 97% Weight Dosing Weight: 53.1 kg (05/28/25) Dosing Weight: 53.1 kg (05/27/25) Code Status No qualifying data available. Admission Date 05/27/2025 Discharge Date 05/30/2025 --left AGAINST MEDICAL ADVICE Medications Unchanged acetaminophen (Tylenol Extra Strength 500 mg oral tablet)2 tab(s) by mouth every 4 hours as needed as needed for pain. escitalopram (Lexapro 20 mg oral tablet)1 tab(s) by mouth once a day. Refills: 5. LORazepam (Ativan 1 mg oral tablet)1 tab(s) by mouth three (3) times a day as needed as needed for anxiety. Refills: 2. ondansetron (ondansetron 4 mg oral tablet)1 tab(s) by mouth three (3) times a day. Refills: 2. oxyCODONE (oxyCODONE 5 mg oral tablet ( IMMEDIATE release ))2 tab(s) by mouth every 6 hours as needed for pain. may fill today. Refills: 0. Follow Up Follow Up with OLE PACE MD When:Within 1-2 days Where:[address] [facility] [place] [address]- [phone] Additional Information: Please call the office to schedule a hospital follow up appointment. Follow Up Appointments No qualifying data available. Follow Up Labs/Studies Discharge Labs No Follow-up Labs Discharge Studies No Follow-up Studies Discharge Diet No qualifying data available. Discharge Activity No qualifying data available. Digitally Signed by SKY HARRIS MD on 05/30/2025 04:50 PM [facility] 05-30-2025 Pastoral care Progress note Pastoral Care Note Entered On: 05/30/2025 15:47 EDT Performed On: 05/30/2025 11:55 EDT by Viral Villalobso Pastoral Care Spiritual Care Visit Initiated by : Consult/Referral Type of Pastoral Visit : Initial visit Pastoral Care Referral From : Patient Spiritual Assessment : Faithful, Hopeful, Grateful/Thankful, Peaceful Spiritual Care Emotional Assessment : Thoughtful/Reflective Spiritual Care Intervention : Active listening, Words of Encouragement, Supportive presence, Prayer with Patient/Family, Conversation Spiritual Outcomes : Spiritual Resources Stirred, Expresses Gratitude, Expresses Rudy Spiritual Plan of Care : Visit as Requested Pastoral Care Comments : Provided spiritual/emotional care to pt w/presence, emphatic listening, encouragement. Pt expressed rudy, hope, thankfulness. Prayed at req of pt. Pastoral Care Visit Length : 5 minute(s) Viral Villalobos - 05/30/2025 15:45 EDT Digitally Signed by Viral Villalobos on 05/30/2025 03:45 PM [facility] 05-30-2025 Nurse Progress note Patient insisted on leaving AMA. Tried to encourage patient to at least wait until the DrApril could come to speak with her. She refused any information and did not want to speak with before leaving. Patient was given A paperwork per her request. Digitally Signed by Padmini Ramirez LPN on 05/30/2025 12:51 PM [facility] 05-30-2025 Note Patient denies any issues managing Nephrostomy at home. Skin team not following. Digitally Signed by JAMAL Phipps on 05/30/2025 12:35 PM [facility] 05-29-2025 Note Date of Service 05/29/2025 Subjective Patient is a 34-year-old female with history of chronic hydronephrosis, chronic left ureteral stone status post recent nephrostomy tube placement in May 07, 2025, presenting with acute complicated UTI. Patient was recently discharged from urology service at [facility]. Currently planning to establish care with urology at [facility] on Friday. Overnight, patient is feeling better. No active fever, chills, abdominal pain. Objective Vitals and Measurements T: 36.6 C (Oral) TMIN: 36.4 C (Oral) TMAX: 36.7 C (Oral) HR: 57 RR: 17 BP: 147/91 SpO2: 95% Intake and Output 7AM Yesterday to 7AM Today Intake and Output (Last 24 hours) Intake Oral Intake 360.00 Output Urostomy Output: 1275.00 Stool Count 0.00 Urine Count 4.00 Total Summary Total Intake 360.00 Total Output 1275.00 Fluid Balance -915.00 Physical Exam General Appearance: Patient comfortably lying on bed, not in acute distress Head: Normocephalic, atraumatic EENT: PERRLA, Neck: Supple, no JVD, no mass Cardiac: s1s2,RRR, no murmurs or rubs or gallops Lungs: Clear to auscultation bilaterally, no wheeze or rhonchi or crackles Abdomen: Soft , Nontender, no organomegaly, bowel sounds heard Musculoskeletal: Full ROM , no gross deformities Extremities: No rash or ulcers or pedal edema Neurological: Alert, oriented x 3, grossly no focal neurological deficits Skin: No rash or ulcers Weight Dosing Weight: 53.1 kg (05/28/25) Dosing Weight: 53.1 kg (05/27/25) Medications Medications (17) Active Scheduled: (2) cefTRIAXone IVP syringe 2 gram(s) 20 mL, IV Push (INT), qDay escitalopram 20 mg tablet 20 mg 1 tab(s), Oral, qDay Continuous: (1) NS (0.9% nacl) 1,000 mL 1,000 mL, Intravenous, 100 mL/hr PRN: (14) acetaminophen 325 mg Tablet 650 mg 2 tab(s), Oral, q4h acetaminophen 500 mg Tablet 1,000 mg 2 tab(s), Oral, q4h albuterol - ipratropium 2.5 mg-0.5 mg/3 mL Inhal Jerri UD 3 mL, Inhalation, q4hRT dextrose 50% Solution Disp syringe 50 mL 25 gram(s) 50 mL, IV Push, AsDirected docusate sodium 100 mg Capsule 100 mg 1 cap(s), Oral, BID guaifenesin 100 mg/5 mL Liquid 120 mL 200 mg 10 mL, Oral, q4h hydralazine 10 mg Tablet 10 mg 1 tab(s), Oral, q3h LORAZEPam 1 mg Tablet 1 mg 1 tab(s), Oral, TID melatonin 3 mg tablet 3 mg 1 tab(s), Oral, qHS morphine 2 mg/mL 1 mL syringe 1 mg 0.5 mL, IV Push, q4h ondansetron 2 mg/ 1 mL 2 mL INJ 4 mg 2 mL, IV Push, q4h oxycodone 5 mg tablet (immediate release) 10 mg 2 tab(s), Oral, q6h polyethylene glycol 3350 - UD packet 17 gram(s) 15 mL, Oral, qDay prochlorperazine 10 mg/2 mL vial 5 mg 1 mL, IV Push, q6h Lab Results 05/29 12:08 WBC: 8.3 Hgb: 13.2 Hct: 39.3 Platelet: 316 Neutrophil %: 68.1 Glucose Level: 98 Sodium Level: 142 Potassium Level: 4.2 BUN: 5.0 L Creatinine Lvl (s): 0.79 05/28 06:19 WBC: 7.4 Hgb: 11.7 L Hct: 34.4 Platelet: 313 Neutrophil %: 57.4 Protime: 12.8 PT International Ratio: 1.1 Glucose Level: 91 Sodium Level: 143 Potassium Level: 3.6 BUN: 11.0 Creatinine Lvl (s): 0.87 EKG No qualifying data available. Assessment/Plan Acute complicated UTI Chronic now hydronephrosis and left ureteral stone status post nephrostomy tube replacement on May 07, 2025 Cervical cancer in remission Anxiety and depression Chronic asthma not in acute exacerbation Chronic pain syndrome Urine cultures show mixed growth. Patient has significant symptomatic improvement with the IV antibiotics. Will repeat urine culture today. Possible IR nephrostomy replacement tomorrow. Will keep n.p.o. from midnight. Discussed with urology team at [facility]. Patient was recently discharged from the service. She needs to establish urology care at a different facility. SCD for DVT prophylaxis Level of Care Indication Regular Floor DVT Prophylaxis Other: specify in note Maintenance IVF Indication NA / No maintenance IVF Indwelling Urinary Catheter Indication Obstruction Anticipated Timeline of Discharge 48 hours Anticipated DC Disposition Home without services Digitally Signed by TIFFANY ARCHULETA MD on 05/29/2025 04:15 PM [facility] 05-28-2025 Note Date of Service 05/28/2025 Subjective Patient is a 34-year-old female with history of chronic hydronephrosis, chronic left ureteral stone status post recent nephrostomy tube placement in May 07, 2025, presenting with acute complicated UTI. Patient was recently discharged from urology service at [facility]. Currently planning to establish care with urology at [facility] on Friday. Overnight, patient is feeling better. No active fever, chills, abdominal pain. Objective Vitals and Measurements T: 36.9 C (Oral) TMIN: 36.5 C (Oral) TMAX: 36.9 C (Oral) HR: 56 RR: 17 BP: 137/89 SpO2: 97% HT: 165.1 cm WT: 53.1 kg BMI: 19.48 Intake and Output 7AM Yesterday to 7AM Today Intake and Output (Last 24 hours) Intake Oral Intake 5.00 Output Urostomy Output: 175.00 Urine Count 2.00 Total Summary Total Intake 5.00 Total Output 175.00 Fluid Balance -170.00 Physical Exam General Appearance: Patient comfortably lying on bed, not in acute distress Head: Normocephalic, atraumatic EENT: PERRLA, Neck: Supple, no JVD, no mass Cardiac: s1s2,RRR, no murmurs or rubs or gallops Lungs: Clear to auscultation bilaterally, no wheeze or rhonchi or crackles Abdomen: Soft , Nontender, no organomegaly, bowel sounds heard Musculoskeletal: Full ROM , no gross deformities Extremities: No rash or ulcers or pedal edema Neurological: Alert, oriented x 3, grossly no focal neurological deficits Skin: No rash or ulcers Weight Dosing Weight: 53.1 kg (05/28/25) Dosing Weight: 53.1 kg (05/27/25) Medications Medications (16) Active Scheduled: (2) cefTRIAXone IVP syringe 2 gram(s) 20 mL, IV Push (INT), qDay escitalopram 20 mg tablet 20 mg 1 tab(s), Oral, qDay Continuous: (1) NS (0.9% nacl) 1,000 mL 1,000 mL, Intravenous, 100 mL/hr PRN: (13) acetaminophen 325 mg Tablet 650 mg 2 tab(s), Oral, q4h acetaminophen 500 mg Tablet 1,000 mg 2 tab(s), Oral, q4h albuterol - ipratropium 2.5 mg-0.5 mg/3 mL Inhal Jerri UD 3 mL, Inhalation, q4hRT dextrose 50% Solution Disp syringe 50 mL 25 gram(s) 50 mL, IV Push, AsDirected guaifenesin 100 mg/5 mL Liquid 120 mL 200 mg 10 mL, Oral, q4h hydralazine 10 mg Tablet 10 mg 1 tab(s), Oral, q3h LORAZEPam 1 mg Tablet 1 mg 1 tab(s), Oral, TID melatonin 3 mg tablet 3 mg 1 tab(s), Oral, qHS morphine 2 mg/mL 1 mL syringe 1 mg 0.5 mL, IV Push, q4h ondansetron 2 mg/ 1 mL 2 mL INJ 4 mg 2 mL, IV Push, q4h oxycodone 5 mg tablet (immediate release) 10 mg 2 tab(s), Oral, q6h polyethylene glycol 3350 - UD packet 17 gram(s) 15 mL, Oral, qDay prochlorperazine 10 mg/2 mL vial 5 mg 1 mL, IV Push, q6h Lab Results 05/28 06:19 WBC: 7.4 Hgb: 11.7 L Hct: 34.4 Platelet: 313 Neutrophil %: 57.4 Protime: 12.8 PT International Ratio: 1.1 Glucose Level: 91 Sodium Level: 143 Potassium Level: 3.6 BUN: 11.0 Creatinine Lvl (s): 0.87 05/27 18:16 WBC: 10.6 Hgb: 13.4 Hct: 40.0 Platelet: 357 Neutrophil %: 68.6 Glucose Level: 95 Sodium Level: 141 Potassium Level: 4.3 BUN: 12.0 Creatinine Lvl (s): 0.94 EKG No qualifying data available. Assessment/Plan Acute complicated UTI Chronic now hydronephrosis and left ureteral stone status post nephrostomy tube replacement on May 07, 2025 Cervical cancer in remission Anxiety and depression Chronic asthma not in acute exacerbation Chronic pain syndrome Patient is symptomatically better. Cultures are so far negative. Urine culture from nephrostomy tube looks normal today. No signs of pyuria. Continue current dose of antibiotics. IR is consulted for nephrostomy tube replacement. Discussed with urology team at [facility]. Patient was recently discharged from the service. SCD for DVT prophylaxis Level of Care Indication Regular Floor DVT Prophylaxis Other: specify in note Maintenance IVF Indication NA / No maintenance IVF Indwelling Urinary Catheter Indication Obstruction Anticipated Timeline of Discharge 48 hours Anticipated DC Disposition Home without services Digitally Signed by TIFFANY ARCHULETA MD on 05/28/2025 01:36 PM [facility] 05-27-2025 History and physical note [facility] Hospitalist History and Physical Date of Admission: patient is being admitted on May 27, 2025 Chief complaint: abdominal pain History of present illness: History is taken from talking with emergency room physician Dr. Zachary damon as well as talking with the patient. Patient has a past medical history of anxiety/depression, asthma, cervical cancer in remission, chronic pain syndrome follows with palliative care, left ureteral stones with chronic hydronephrosis with chronic left sided nephrostomy tube. Readmission documentation. This was discussed with emergency room physician Dr. Zachary damon. Patient was last discharged from here on May 07, 2025. During her recent admission the patient had her nephrostomy tube exchanged. Of note the patient has a history of medical noncompliance and has left from here against medical advice multiple times in the past. Urology from [facility] will no longer see the patient as she has been discharged from their service due to the patient's attitude toward staff. Patient reports that for the last several days she has had severe left sided flank pain. Has also had nausea but no vomiting. Denies fevers. Of note the patient does have an appointment with urology at [facility] on Friday afternoon to be evaluated for possible nephrectomy. Since presenting to the emergency room the patient has been afebrile, blood pressure 166/96, 98% room air. The following labs and imaging were personally reviewed CBC within normal limits urinalysis from nephrostomy tube is concerning for infection BMP within normal limits CT abdomen and pelvis on May 25, 2025 did not show any acute concerning finding. In emergency room they ordered blood and urine cultures and the patient was given ceftriaxone, Zofran and oxycodone. Past medical history: Fall Acid reflux Acute kidney injury Anxiety Asthma Bilateral flank pain Bradycardia Cancer related pain Cervical cancer Chronic colitis Chronic pain syndrome Contact lenses DVT prophylaxis Decreased appetite Dehydration Depression Frequent loose stools Glasses History of chemotherapy History of radiation therapy Hx of cervical cancer Hydronephrosis, left Kidney stone Left flank pain Marijuana smoker Moderate protein-calorie malnutrition Nausea and vomiting Nephrostomy status Obstructive uropathy Pain management Palliative care encounter Panic attack Premature menopause Pyelonephritis Seasonal allergy Tobacco use Exchange nephrostomy catheter, percutaneous, including diagnostic nephrostogram and/or ureterogram when performed, imaging guidance (eg, ultrasound and/or fluoroscopy) and all associated radiological supervision and interpretation: 05/05/25 Exchange nephrostomy catheter, percutaneous, including diagnostic nephrostogram and/or ureterogram when performed, imaging guidance (eg, ultrasound and/or fluoroscopy) and all associated radiological supervision and interpretation: 02/16/25 Removal of implantable venous access port: 12/22/24 Exchange nephrostomy catheter, percutaneous, including diagnostic nephrostogram and/or ureterogram when performed, imaging guidance (eg, ultrasound and/or fluoroscopy) and all associated radiological supervision and interpretation: 12/22/24 Exchange nephrostomy catheter, percutaneous, including diagnostic nephrostogram and/or ureterogram when performed, imaging guidance (eg, ultrasound and/or fluoroscopy) and all associated radiological supervision and interpretation: 10/13/24 Nephrostomy using fluoroscopic guidance: 06/16/24 JJ stent: 06/16/24 Nephrostomy tube: 10/05/23 Nephrostomy with tube drainage: 07/2023 Nephrostomy with tube drainage: 01/10/21 JJ stent: 11/15/20 Radiation: 06/2020 Implantable venous access port: 04/2020 Cervical biopsy: 2019 Tumor cells, benign: 2001 Family history: Mother: Asthma; Breast cancer; COPD - Chronic obstructive pulmonary disease; Heart attack; Heart disease; Hypertension; Kidney stone; Renal stone Father: Alcohol abuse; COPD - Chronic obstructive pulmonary disease; Stroke; Substance abuse Sister: Cancer; Malignant tumor of ovary Grandparent: Diabetes; Stroke Social history: Denies smoking cigarettes or alcohol consumption Medications: Home Medications (5) Active Ativan 1 mg oral tablet 1 mg = 1 tab(s), PRN, Oral, TID Lexapro 20 mg oral tablet 20 mg = 1 tab(s), Oral, qDay ondansetron 4 mg oral tablet 4 mg = 1 tab(s), Oral, TID oxyCODONE 5 mg oral tablet ( IMMEDIATE release ) 10 mg = 2 tab(s), PRN, Oral, q6h Tylenol Extra Strength 500 mg oral tablet 1,000 mg = 2 tab(s), PRN, Oral, q4h Allergies: Haldol (Tongue swelling) Oranges (Difficulty breathing,Tongue swelling) penicillin (Hives) Review of systems: See HPI for pertinent positives and negatives. All other review of systems have been reviewed and they are negative. Vitals Signs(Last 24 hrs)__Last Charted Minimum Maximum Temp36.7(MAY 27 15:21)36.7(MAY 27 15:21)36.8(MAY 27 12:53) SBPH 158(MAY 27 21:32)112(MAY 27 15:21)H 166(MAY 27 20:40) DBPH 98(MAY 27 21:32)78(MAY 27 15:21)H 98(MAY 27 21:32) Physical examination: HEENT: No Pallor, No Icterus Cardiac: RRR, No murmur Lungs: CTA, good air entry Abdomen: Soft Non tender Musculoskeletal: No joint pains or swelling Extremities: No edema, good pulses Neurological: Alert, no deficits Skin: No rash, no nodules Labs: WBC: 10.6 10^3/mcL (05/27/25 18:16:00) RBC: 4.11 10^6/mcL (05/27/25 18:16:00) Hgb: 13.4 G/dL (05/27/25 18:16:00) Hct: 40 % (05/27/25 18:16:00) MCV: 97.3 fL (05/27/25 18:16:00) MCH: 32.6 pg (05/27/25 18:16:00) MCHC: 33.4 G/dL (05/27/25 18:16:00) RDW: 15.4 % (05/27/25 18:16:00) Platelet: 357 10^3/mcL (05/27/25 18:16:00) MPV: 7.2 fL (05/27/25 18:16:00) Monocyte Distribution Width: 20.07 High (05/27/25 18:16:00) Neutrophil %: 68.6 % (05/27/25 18:16:00) Lymphocyte %: 22.7 % (05/27/25 18:16:00) Monocyte %: 6.5 % (05/27/25 18:16:00) Eosinophil %: 1.4 % (05/27/25 18:16:00) Basophil %: 0.8 % (05/27/25 18:16:00) Neutrophil, Absolute: 7.3 10^3/mcL (05/27/25 18:16:00) Lymphocyte, Absolute: 2.4 10^3/mcL (05/27/25 18:16:00) Monocyte, Absolute: 0.7 10^3/mcL (05/27/25 18:16:00) Eosinophil, Absolute: 0.1 10^3/mcL (05/27/25 18:16:00) Basophil, Absolute: 0.1 10^3/mcL (05/27/25 18:16:00) UA Specimen Type: Hilario Catheter (05/27/25 18:16:00) UA Specimen Type: Clean Catch (05/27/25 17:05:00) UA Color: Yellow (05/27/25 18:16:00) UA Color: Yellow (05/27/25 17:05:00) UA Appear: Cloudy Abnormal (05/27/25 18:16:00) UA Appear: Cloudy Abnormal (05/27/25 17:05:00) UA Spec Grav: 1.010 (05/27/25 18:16:00) UA Spec Grav: 1.020 (05/27/25 17:05:00) UA Glucose: Negative. (05/27/25 18:16:00) UA Glucose: Negative. (05/27/25 17:05:00) UA Bili: Negative. (05/27/25 18:16:00) UA Bili: Negative. (05/27/25 17:05:00) UA Ketones: Negative.1 (05/27/25 18:16:00) UA Ketones: Negative.1 (05/27/25 17:05:00) UA Blood: Moderate Abnormal (05/27/25 18:16:00) UA Blood: Negative. (05/27/25 17:05:00) UA pH: >=8.5a Abnormal (05/27/25 18:16:00) UA pH: 8.5 Abnormal (05/27/25 17:05:00) UA Protein: 100 Abnormal (05/27/25 18:16:00) UA Protein: Trace (05/27/25 17:05:00) UA Urobilinogen: 0.2 (05/27/25 18:16:00) UA Urobilinogen: 1.0 (05/27/25 17:05:00) UA Nitrite: Positive.1 Abnormal (05/27/25 18:16:00) UA Nitrite: Negative. (05/27/25 17:05:00) UA Leuk Est: Large Abnormal (05/27/25 18:16:00) UA Leuk Est: Trace (05/27/25 17:05:00) UA RBC: 3-5 Abnormal (05/27/25 18:16:00) UA RBC: Rare (05/27/25 17:05:00) UA WBC: 10-20 Abnormal (05/27/25 18:16:00) UA WBC: Rare (05/27/25 17:05:00) UA Squam Epithelial: 0-2 (05/27/25 18:16:00) UA Squam Epithelial: 0-2 (05/27/25 17:05:00) UA Bacteria: 1+ Abnormal (05/27/25 18:16:00) UA Trip Rai Crystals: 3+ (05/27/25 18:16:00) UA Crenated RBCs: 0-2 Abnormal (05/27/25 18:16:00) Urine POC: Negative (05/27/25 17:04:00) Glucose Level: 95 mg/dL (05/27/25 18:16:00) Sodium Level: 141 mEq/L (05/27/25 18:16:00) Potassium Level: 4.3 mEq/L (05/27/25 18:16:00) Chloride: 111 mEq/L High (05/27/25 18:16:00) CO2: 24 mEq/L (05/27/25 18:16:00) Electrolyte Balance: 6 mEq/L (05/27/25 18:16:00) BUN: 12 mg/dL (05/27/25 18:16:00) Creatinine Lvl (s): 0.94 mg/dL (05/27/25 18:16:00) Estimated Glomerular Filtration Rate: 81 ml/min/1.73sqm (05/27/25 18:16:00) BUN/Creatinine Ratio: 12.8 ratio (05/27/25 18:16:00) Calcium Lvl: 9.1 mg/dL (05/27/25 18:16:00) Lactic Acid Lvl: 0.7 mmol/L (05/27/25 18:16:00) Urinalysis UA Specimen Type: Hilario Catheter (05/27/25 18:16:00) UA Specimen Type: Clean Catch (05/27/25 17:05:00) UA Color: Yellow (05/27/25 18:16:00) UA Color: Yellow (05/27/25 17:05:00) UA Appear: Cloudy Abnormal (05/27/25 18:16:00) UA Appear: Cloudy Abnormal (05/27/25 17:05:00) UA Spec Grav: 1.010 (05/27/25 18:16:00) UA Spec Grav: 1.020 (05/27/25 17:05:00) UA Glucose: Negative. (05/27/25 18:16:00) UA Glucose: Negative. (05/27/25 17:05:00) UA Bili: Negative. (05/27/25 18:16:00) UA Bili: Negative. (05/27/25 17:05:00) UA Ketones: Negative.1 (05/27/25 18:16:00) UA Ketones: Negative.1 (05/27/25 17:05:00) UA Blood: Moderate Abnormal (05/27/25 18:16:00) UA Blood: Negative. (05/27/25 17:05:00) UA pH: >=8.5a Abnormal (05/27/25 18:16:00) UA pH: 8.5 Abnormal (05/27/25 17:05:00) UA Protein: 100 Abnormal (05/27/25 18:16:00) UA Protein: Trace (05/27/25 17:05:00) UA Urobilinogen: 0.2 (05/27/25 18:16:00) UA Urobilinogen: 1.0 (05/27/25 17:05:00) UA Nitrite: Positive.1 Abnormal (05/27/25 18:16:00) UA Nitrite: Negative. (05/27/25 17:05:00) UA Leuk Est: Large Abnormal (05/27/25 18:16:00) UA Leuk Est: Trace (05/27/25 17:05:00) UA RBC: 3-5 Abnormal (05/27/25 18:16:00) UA RBC: Rare (05/27/25 17:05:00) UA WBC: 10-20 Abnormal (05/27/25 18:16:00) UA WBC: Rare (05/27/25 17:05:00) UA Squam Epithelial: 0-2 (05/27/25 18:16:00) UA Squam Epithelial: 0-2 (05/27/25 17:05:00) UA Bacteria: 1+ Abnormal (05/27/25 18:16:00) UA Trip Rai Crystals: 3+ (05/27/25 18:16:00) UA Crenated RBCs: 0-2 Abnormal (05/27/25 18:16:00) Urine POC: Negative (05/27/25 17:04:00) Assessment and plan: Patient presents on May 27, 2025 with left sided flank pain and nausea. Acute complicated urinary tract infection. Patient does require two midnight hospital stay due to having a complicated urinary tract infection secondary to infected nephrostomy tube. Blood and urine cultures in process. Will continue the patient on ceftriaxone. Patient cannot be treated outpatient due to high risk for sepsis. Chronic left ureteral stones with chronic hydronephrosis with chronic left sided nephrostomy tube. Will consult interventional radiology for tube exchange. NPO with IV fluids after midnight in case of procedure. Of note the patient does have an appointment with urology at [facility] Friday afternoon to be evaluated for possible nephrectomy. Anxiety/depression. Continue home medications Chronic asthma not in exacerbation Cervical cancer in remission Chronic pain syndrome follows with palliative care Prophylaxis SCD in case of procedure Code status full code Digitally Signed by OLI HERRERA MD on 05/27/2025 10:35 PM [facility] 05-27-2025 Hospital Discharg e instructions Follow Up Care 05/27/2025 12:51:48 With:OLE PACE MD Address: [address] [place] [address] [place] [address]- [phone] When:1-2 days Comments:Please call the office to schedule a hospital follow up appointment. [facility] 05-27-2025 Evaluation + Plan note Extrac raghu from: Title:Clinical Document Author:OLI HERRERA MD Date:05/27/25 [facility] Hospitalist History and Physical Date of Admission: patient is being admitted on May 27, 2025 Chief complaint: abdominal pain History of present illness: History is taken from talking with emergency room physician Dr. Zachary damon as well as talking with the patient. Patient has a past medical history of anxiety/depression, asthma, cervical cancer in remission, chronic pain syndrome follows with palliative care, left ureteral stones with chronic hydronephrosis with chronic left sided nephrostomy tube. Readmission documentation. This was discussed with emergency room physician Dr. Zachary damon. Patient was last discharged from here on May 07, 2025. During her recent admission the patient had her nephrostomy tube exchanged. Of note the patient has a history of medical noncompliance and has left from here against medical advice multiple times in the past. Urology from [facility] will no longer see the patient as she has been discharged from their service due to the patient's attitude toward staff. Patient reports that for the last several days she has had severe left sided flank pain. Has also had nausea but no vomiting. Denies fevers. Of note the patient does have an appointment with urology at [facility] on Friday afternoon to be evaluated for possible nephrectomy. Since presenting to the emergency room the patient has been afebrile, blood pressure 166/96, 98% room air. The following labs and imaging were personally reviewed CBC within normal limits urinalysis from nephrostomy tube is concerning for infection BMP within normal limits CT abdomen and pelvis on May 25, 2025 did not show any acute concerning finding. In emergency room they ordered blood and urine cultures and the patient was given ceftriaxone, Zofran and oxycodone. Past medical history: Fall Acid reflux Acute kidney injury Anxiety Asthma Bilateral flank pain Bradycardia Cancer related pain Cervical cancer Chronic colitis Chronic pain syndrome Contact lenses DVT prophylaxis Decreased appetite Dehydration Depression Frequent loose stools Glasses History of chemotherapy History of radiation therapy Hx of cervical cancer Hydronephrosis, left Kidney stone Left flank pain Marijuana smoker Moderate protein-calorie malnutrition Nausea and vomiting Nephrostomy status Obstructive uropathy Pain management Palliative care encounter Panic attack Premature menopause Pyelonephritis Seasonal allergy Tobacco use Exchange nephrostomy catheter, percutaneous, including diagnostic nephrostogram and/or ureterogram when performed, imaging guidance (eg, ultrasound and/or fluoroscopy) and all associated radiological supervision and interpretation: 05/05/25 Exchange nephrostomy catheter, percutaneous, including diagnostic nephrostogram and/or ureterogram when performed, imaging guidance (eg, ultrasound and/or fluoroscopy) and all associated radiological supervision and interpretation: 02/16/25 Removal of implantable venous access port: 12/22/24 Exchange nephrostomy catheter, percutaneous, including diagnostic nephrostogram and/or ureterogram when performed, imaging guidance (eg, ultrasound and/or fluoroscopy) and all associated radiological supervision and interpretation: 12/22/24 Exchange nephrostomy catheter, percutaneous, including diagnostic nephrostogram and/or ureterogram when performed, imaging guidance (eg, ultrasound and/or fluoroscopy) and all associated radiological supervision and interpretation: 10/13/24 Nephrostomy using fluoroscopic guidance: 06/16/24 JJ stent: 06/16/24 Nephrostomy tube: 10/05/23 Nephrostomy with tube drainage: 07/2023 Nephrostomy with tube drainage: 01/10/21 JJ stent: 11/15/20 Radiation: 06/2020 Implantable venous access port: 04/2020 Cervical biopsy: 2019 Tumor cells, benign: 2001 Family history: Mother: Asthma; Breast cancer; COPD - Chronic obstructive pulmonary disease; Heart attack; Heart disease; Hypertension; Kidney stone; Renal stone Father: Alcohol abuse; COPD - Chronic obstructive pulmonary disease; Stroke; Substance abuse Sister: Cancer; Malignant tumor of ovary Grandparent: Diabetes; Stroke Social history: Denies smoking cigarettes or alcohol consumption Medications: Home Medications (5) Active Ativan 1 mg oral tablet 1 mg = 1 tab(s), PRN, Oral, TID Lexapro 20 mg oral tablet 20 mg = 1 tab(s), Oral, qDay ondansetron 4 mg oral tablet 4 mg = 1 tab(s), Oral, TID oxyCODONE 5 mg oral tablet ( IMMEDIATE release ) 10 mg = 2 tab(s), PRN, Oral, q6h Tylenol Extra Strength 500 mg oral tablet 1,000 mg = 2 tab(s), PRN, Oral, q4h Allergies: Haldol (Tongue swelling) Oranges (Difficulty breathing,Tongue swelling) penicillin (Hives) Review of systems: See HPI for pertinent positives and negatives. All other review of systems have been reviewed and they are negative. Vitals Signs(Last 24 hrs)__Last Charted Minimum Maximum Temp36.7(MAY 27 15:21)36.7(MAY 27 15:21)36.8(MAY 27 12:53) SBPH 158(MAY 27 21:32)112(MAY 27 15:21)H 166(MAY 27 20:40) DBPH 98(MAY 27 21:32)78(MAY 27 15:21)H 98(MAY 27 21:32) Physical examination: HEENT: No Pallor, No Icterus Cardiac: RRR, No murmur Lungs: CTA, good air entry Abdomen: Soft Non tender Musculoskeletal: No joint pains or swelling Extremities: No edema, good pulses Neurological: Alert, no deficits Skin: No rash, no nodules Labs: WBC: 10.6 10^3/mcL (05/27/25 18:16:00) RBC: 4.11 10^6/mcL (05/27/25 18:16:00) Hgb: 13.4 G/dL (05/27/25 18:16:00) Hct: 40 % (05/27/25 18:16:00) MCV: 97.3 fL (05/27/25 18:16:00) MCH: 32.6 pg (05/27/25 18:16:00) MCHC: 33.4 G/dL (05/27/25 18:16:00) RDW: 15.4 % (05/27/25 18:16:00) Platelet: 357 10^3/mcL (05/27/25 18:16:00) MPV: 7.2 fL (05/27/25 18:16:00) Monocyte Distribution Width: 20.07 High (05/27/25 18:16:00) Neutrophil %: 68.6 % (05/27/25 18:16:00) Lymphocyte %: 22.7 % (05/27/25 18:16:00) Monocyte %: 6.5 % (05/27/25 18:16:00) Eosinophil %: 1.4 % (05/27/25 18:16:00) Basophil %: 0.8 % (05/27/25 18:16:00) Neutrophil, Absolute: 7.3 10^3/mcL (05/27/25 18:16:00) Lymphocyte, Absolute: 2.4 10^3/mcL (05/27/25 18:16:00) Monocyte, Absolute: 0.7 10^3/mcL (05/27/25 18:16:00) Eosinophil, Absolute: 0.1 10^3/mcL (05/27/25 18:16:00) Basophil, Absolute: 0.1 10^3/mcL (05/27/25 18:16:00) UA Specimen Type: Hilario Catheter (05/27/25 18:16:00) UA Specimen Type: Clean Catch (05/27/25 17:05:00) UA Color: Yellow (05/27/25 18:16:00) UA Color: Yellow (05/27/25 17:05:00) UA Appear: Cloudy Abnormal (05/27/25 18:16:00) UA Appear: Cloudy Abnormal (05/27/25 17:05:00) UA Spec Grav: 1.010 (05/27/25 18:16:00) UA Spec Grav: 1.020 (05/27/25 17:05:00) UA Glucose: Negative. (05/27/25 18:16:00) UA Glucose: Negative. (05/27/25 17:05:00) UA Bili: Negative. (05/27/25 18:16:00) UA Bili: Negative. (05/27/25 17:05:00) UA Ketones: Negative.1 (05/27/25 18:16:00) UA Ketones: Negative.1 (05/27/25 17:05:00) UA Blood: Moderate Abnormal (05/27/25 18:16:00) UA Blood: Negative. (05/27/25 17:05:00) UA pH: >=8.5a Abnormal (05/27/25 18:16:00) UA pH: 8.5 Abnormal (05/27/25 17:05:00) UA Protein: 100 Abnormal (05/27/25 18:16:00) UA Protein: Trace (05/27/25 17:05:00) UA Urobilinogen: 0.2 (05/27/25 18:16:00) UA Urobilinogen: 1.0 (05/27/25 17:05:00) UA Nitrite: Positive.1 Abnormal (05/27/25 18:16:00) UA Nitrite: Negative. (05/27/25 17:05:00) UA Leuk Est: Large Abnormal (05/27/25 18:16:00) UA Leuk Est: Trace (05/27/25 17:05:00) UA RBC: 3-5 Abnormal (05/27/25 18:16:00) UA RBC: Rare (05/27/25 17:05:00) UA WBC: 10-20 Abnormal (05/27/25 18:16:00) UA WBC: Rare (05/27/25 17:05:00) UA Squam Epithelial: 0-2 (05/27/25 18:16:00) UA Squam Epithelial: 0-2 (05/27/25 17:05:00) UA Bacteria: 1+ Abnormal (05/27/25 18:16:00) UA Trip Rai Crystals: 3+ (05/27/25 18:16:00) UA Crenated RBCs: 0-2 Abnormal (05/27/25 18:16:00) Urine POC: Negative (05/27/25 17:04:00) Glucose Level: 95 mg/dL (05/27/25 18:16:00) Sodium Level: 141 mEq/L (05/27/25 18:16:00) Potassium Level: 4.3 mEq/L (05/27/25 18:16:00) Chloride: 111 mEq/L High (05/27/25 18:16:00) CO2: 24 mEq/L (05/27/25 18:16:00) Electrolyte Balance: 6 mEq/L (05/27/25 18:16:00) BUN: 12 mg/dL (05/27/25 18:16:00) Creatinine Lvl (s): 0.94 mg/dL (05/27/25 18:16:00) Estimated Glomerular Filtration Rate: 81 ml/min/1.73sqm (05/27/25 18:16:00) BUN/Creatinine Ratio: 12.8 ratio (05/27/25 18:16:00) Calcium Lvl: 9.1 mg/dL (05/27/25 18:16:00) Lactic Acid Lvl: 0.7 mmol/L (05/27/25 18:16:00) Urinalysis UA Specimen Type: Hilario Catheter (05/27/25 18:16:00) UA Specimen Type: Clean Catch (05/27/25 17:05:00) UA Color: Yellow (05/27/25 18:16:00) UA Color: Yellow (05/27/25 17:05:00) UA Appear: Cloudy Abnormal (05/27/25 18:16:00) UA Appear: Cloudy Abnormal (05/27/25 17:05:00) UA Spec Grav: 1.010 (05/27/25 18:16:00) UA Spec Grav: 1.020 (05/27/25 17:05:00) UA Glucose: Negative. (05/27/25 18:16:00) UA Glucose: Negative. (05/27/25 17:05:00) UA Bili: Negative. (05/27/25 18:16:00) UA Bili: Negative. (05/27/25 17:05:00) UA Ketones: Negative.1 (05/27/25 18:16:00) UA Ketones: Negative.1 (05/27/25 17:05:00) UA Blood: Moderate Abnormal (05/27/25 18:16:00) UA Blood: Negative. (05/27/25 17:05:00) UA pH: >=8.5a Abnormal (05/27/25 18:16:00) UA pH: 8.5 Abnormal (05/27/25 17:05:00) UA Protein: 100 Abnormal (05/27/25 18:16:00) UA Protein: Trace (05/27/25 17:05:00) UA Urobilinogen: 0.2 (05/27/25 18:16:00) UA Urobilinogen: 1.0 (05/27/25 17:05:00) UA Nitrite: Positive.1 Abnormal (05/27/25 18:16:00) UA Nitrite: Negative. (05/27/25 17:05:00) UA Leuk Est: Large Abnormal (05/27/25 18:16:00) UA Leuk Est: Trace (05/27/25 17:05:00) UA RBC: 3-5 Abnormal (05/27/25 18:16:00) UA RBC: Rare (05/27/25 17:05:00) UA WBC: 10-20 Abnormal (05/27/25 18:16:00) UA WBC: Rare (05/27/25 17:05:00) UA Squam Epithelial: 0-2 (05/27/25 18:16:00) UA Squam Epithelial: 0-2 (05/27/25 17:05:00) UA Bacteria: 1+ Abnormal (05/27/25 18:16:00) UA Trip Rai Crystals: 3+ (05/27/25 18:16:00) UA Crenated RBCs: 0-2 Abnormal (05/27/25 18:16:00) Urine POC: Negative (05/27/25 17:04:00) Assessment and plan: Patient presents on May 27, 2025 with left sided flank pain and nausea. Acute complicated urinary tract infection. Patient does require two midnight hospital stay due to having a complicated urinary tract infection secondary to infected nephrostomy tube. Blood and urine cultures in process. Will continue the patient on ceftriaxone. Patient cannot be treated outpatient due to high risk for sepsis. Chronic left ureteral stones with chronic hydronephrosis with chronic left sided nephrostomy tube. Will consult interventional radiology for tube exchange. NPO with IV fluids after midnight in case of procedure. Of note the patient does have an appointment with urology at [facility] Friday afternoon to be evaluated for possible nephrectomy. Anxiety/depression. Continue home medications Chronic asthma not in exacerbation Cervical cancer in remission Chronic pain syndrome follows with palliative care Prophylaxis SCD in case of procedure Code status full code Future Appointments Appointment Date:06/08/2025 11:30:00 AM Scheduled Provider:OLE PACE MD Location:[facility] Palliative Appointment Type:PALL OV Follow Up Appointment Date:06/29/2025 08:00:00 AM Scheduled Provider: Location:[facility] Appointment Type:IR Nephrostomy Exchange Future Scheduled Tests Laboratory* hCG, quantitative (AH/AM Only) 11/15/24 Radiology* IR Nephrostomy Exchange 06/29/25 * IR Nephrostomy Exchange 12/30/24 * CT Renal 03/08/25 * NM Kidney Diuretic 03/08/25 * NM Kidney Diuretic 04/12/25 [facility] 07-24-2025 Emergency department Discharge summary Discharge Instructions Thank you for allowing [facility] to assist you with your healthcare needs. The following is importantdischarge information regarding your hospital visit. What to Do Next Instructions from Your Care Team No qualifying data available. Post Acute Orders No qualifying data available. Allergies Haldol Tongue swelling Oranges Tongue swelling, [...] tab(s) by mouth Once a day Unchanged LORazepam (Ativan 1 mg oral tablet) 1 tab(s) by mouth Three (3) times a day as needed for as needed for anxiety Palliative care patient THO (generalized anxiety disorder) Unchanged ondansetron (ondansetron 4 mg oral tablet) 1 tab(s) by mouth Three (3) times a day Unchanged oxyCODONE (oxyCODONE 5 mg oral tablet ( IMMEDIATE release )) 2 tab(s) by mouth Every 6 hours as needed for for pain Cervical ca Cancer related pain may fill today Please take this list to your next doctor s visit. Bring all medications you take, including over the counter medications, herbals and other supplements with you to your doctor s visit. Patients and families are reminded to discard old lists and to update any records with all medication providers or retail pharmacies. Additional Information VACCINATE! IT SAVES LIVES! Members of the community who have not yet received the COVID-19 vaccine and would like to receive it can visit one of [facility] vaccine clinics. There are many vaccine clinic locations within the [facility]. For locations and available times, please visit [email or web address] It is important to note that some COVID mobile vaccine clinics are held outdoors and may be canceled in rainy or stormy conditions. To learn more about pediatric vaccinations (ages 5-11), we invite you to visit the [facility] webpage. [email or web address] learn more about the COVID-19 vaccine, we invite you to visit the CDC website for a list of frequently asked questions. https://www.cdc.gov/coronavirus/2019-ncov/vaccines/faq.html [facility] Access Instructions: Stay connected with your healthcare team and access your personal medical information anytime with the [facility] Patient Portal. If you would like a full copy of your medical records please contact the [facility] Medical Records Department Friday through Friday between 8a.m. and 4:30p.m. Please follow the directions below to access the portal: 1.Access the email account you provided upon registration to the [facility].2.Look for an invitation email from [facility].3.Open the email and access the invitation link: Accept Invitation to [facility]4.Fill in the required quintero to create your account. Sign into www.[employer] with your username and password that you [...] you will allow to register on the [facility] Patient Portal for access to your information. You can also access the [facility] Patient Portal on the [employer]. Simply click on Health Records under [employer] and then click on the [employer] logo. [...] Call your local pharmacy or go to [email or web address] to find one close to you.3.Make use of household items: Use cat litter or old coffee grounds to dispose medications if other options arenot available. Mix your drugs with these household products, seal them in an airtight container andthrow it into the garbage. Call [facility]: [phone] to be sure your drugs can be [...] a CHART COPY Signatures Patient Education Materials Medication Leaflets My discharge plan and instructions have been reviewed and explained to me and IANTONELLA RACHAEL L understand my current condition and have read and understand these discharge instructions. I have received a written copy of the plan/instructions. If I have questions, I am aware that I should contact my doctor. Patient/[employer] Signature: Date/Time: Relationship to Patient: Witness Name/Signature: Date/Time: [id number] Note* Exam Date Time Procedure Performing Provider Status 05/25/25 9:[address] Abdomen/Pelvis w/o Contrast CESAR CHEN DO; Auth (Verified) [id number] ORIGINAL EXAMINATION: CT OF THE ABDOMEN AND PELVIS WITHOUT CONTRAST 05/25/2025 9:20 pm TECHNIQUE: CT of the abdomen and pelvis was performed without the administration of intravenous contrast. Multiplanar reformatted images are provided for review. Automated exposure control, iterative reconstruction, and/or weight based adjustment of the mA/kV was utilized to reduce the radiation dose to as low as reasonably achievable. COMPARISON: CT abdomen pelvis without contrast 05/09/2025. HISTORY: ORDERING SYSTEM PROVIDED HISTORY: Reason for Exam: ABD/FLANK PAIN, HX CERVICAL CA, HX RENAL FAILURE Abdominal/flank pain, stone suspected FINDINGS: Visualized portion of the lower chest demonstrates no acute abnormality. Liver is within normal limits for size and demonstrates a smooth contour. Unremarkable appearance of the gallbladder. The spleen, pancreas and adrenal glands are unremarkable. Redemonstration of a left-sided percutaneous nephrostomy tube which is unchanged in position from the prior study. No hydroureteronephrosis or nephroureterolithiasis on the right. No hydroureteronephrosis on the left however stable appearance of multiple left distal ureteral calculi. The urinary bladder is decompressed. Uterus is surgically absent. The stomach is distended with ingested contents. Bowel gas is noted to the level of the rectum without evidence of obstruction. No dilated loops of bowel are identified. Unremarkable appearance of the appendix. No free air or fluid. No abdominal or pelvic adenopathy. The abdominal aorta is nonaneurysmal in size with minimal atherosclerotic changes. No acute osseous or soft tissue abnormalities. IMPRESSION: 1. No acute abnormality of the abdomen or pelvis. 2. Stable positioning of a left-sided percutaneous nephrostomy tube without evidence of hydroureteronephrosis. 3. Stable appearance of multiple left distal ureteral calculi. Interpreted by: Cesar Chen Preliminary Report By: Cesar Chen Electronically signed By Cesar Chen Dictated Date: 05/25/2025 9:28:51 PM Prelim Date: 05/25/2025 9:38:02 PM Sign Date: 05/25/2025 9:38:02 PM Ordering Provider: KORINA ALEGRE [id number] NoteReferral received from [facility] to discuss nephrectomy for chronic hydronephrosis and obstructive uropathy. Spoke to patient, appt scheduled 05/26/[address] Raymundo Coburn.[facility]07-15-2025 Telephone encounter Note* Telephone Encounter - Lidazia Warren - 05/17/2025 1:40 PM EDT Referral received from [facility] to discuss nephrectomy for chronic hydronephrosis and obstructive uropathy. Spoke to patient, appt scheduled 05/26/[address] Raymundo Coburn. [id number] Miscellaneous Notes* Telephone Encounter - Lida Warren - 05/17/2025 1:40 PM EDT Referral received from [facility] to discuss nephrectomy for chronic hydronephrosis and obstructive uropathy. Spoke to patient, appt scheduled 05/26/[address] Raymundo Coburn. documented in this [facility]07-07-2025 Hospital Discharge instructions Patient Education 05/09/2025 04:54:31 Vomiting (Adult) Vomiting (Adult) Vomiting is a common symptom that may be due to different causes. These include gastroenteritis (stomach flu), food poisoning and gastritis. There are other more serious causes of vomiting which may be hard to diagnose early in the illness. Therefore, it is important to watch for the warning signs listed below. The main danger from repeated vomiting is dehydration. This is due to excess loss of water and minerals from the body. When this occurs, your body fluids must be replaced. Home care If symptoms are severe, rest at home for the next 24 hours. Because your symptoms may be from an infection, wash your hands often and well. If soap and water are not available, use alcohol-based lump machine operator to keep from spreading the infection to others. Wash your hands for at least 20 seconds. Humming the happy birthday song twice while you wash is aneasy way to make sure you've washed for 20 seconds. Wash your hands after using the toilet, before and after preparing food, before eating food, after changing a diaper, cleaning a wound, caring for a sick person, and blowing your nose, coughing, or sneezing. You should also wash your hands after caring for someone who is sick, touching pet food, ortreats, and touching an animal, or animal waste. You may use acetaminophen or NSAID medicines like ibuprofen or naproxen to control fever, unless another medicine was prescribed. If you have chronic liver or kidney disease or ever had a stomach ulcer or gastrointestinal bleeding, talk with your doctor before using these medicines. Aspirin should never be used in anyone under 18 years of age who is ill with a fever. It may cause severe liver damage. Don't use NSAID medicines if you are already taking one for another condition (like arthritis) or are on aspirin (such as for heart disease, or after a stroke) Don't use tobacco and or drink alcohol, which may worsen your symptoms. If medicines for vomiting were prescribed, take as directed. Once vomiting stops, then follow these guidelines: During the first 12 to 24 hours follow the diet below: Fruit juices. Apple, grape juice, clear fruit drinks, and electrolyte replacement drinks. Beverages. Soft drinks without caffeine; mineral water (plain or flavored), decaffeinated tea and coffee. Soups. Clear broth and bouillon Desserts. Plain gelatin, ice pops, and fruit juice bars. As you feel better, you may add 6 to 8 ounces of yogurt per day. During the next 24 hours you may add the following to the above: Hot cereal, plain toast, bread, rolls, crackers Plain noodles, rice, mashed potatoes, chicken noodle or rice soup Unsweetened canned fruit such as applesauce, bananas (avoid pineapple and citrus) Limit caffeine and chocolate. No spices or seasonings except salt. During the next 24 hours: Gradually resume a normal diet, as you feel better and your symptoms lessen. Follow-up care Follow up with your healthcare provider, or as advised. When to seek medical advice Call your healthcare provider right away if any of these occur: Constant right-sided lower belly pain or increasing general belly pain Continued vomiting (unable to keep liquids down) for 24 hours Vomiting blood or coffee grounds Swollen belly Frequent diarrhea (more than 5 times a day); blood (red or black color) or mucus in diarrhea Reduced urine output or extreme thirst Weakness, dizziness or fainting Unusually drowsy or confused Fever of 100.4 F (38 C) oral or higher, or as directed Yellow color of the eyes or skin [id number] [employer]. [address] [place] [address]. All rights reserved. This information is not intended as a substitute for professional medical care. Always follow yourgalion hospitalcare professional's instructions. 05/09/2025 04:54:31 Abdominal Pain Abdominal Pain Abdominal pain is pain in the stomach or belly area. Everyone has this pain from time to time. In many cases it goes away on its own. But abdominal pain can sometimes be due to a serious problem, such as appendicitis. So it s important to know when to get help. Causes of abdominal pain There are many possible causes of abdominal pain. Common causes in adults include: Constipation, diarrhea, or gas Stomach acid flowing back up into the esophagus (acid reflux or heartburn) Severe acid reflux, called GERD (gastroesophageal reflux disease) A sore in the lining of the stomach or small intestine (peptic ulcer) Inflammation of the gallbladder, liver, or pancreas Gallstones or kidney stones Appendicitis Intestinal blockage An internal organ pushing through a muscle or other tissue (hernia) Urinary tract infections In women, menstrual cramps, fibroids, ovarian cysts, pelvic inflammatory disease, or endometriosis Inflammation or infection of the intestines, including Crohn's disease and ulcerative colitis Irritable bowel syndrome Diagnosing the cause of abdominal pain Your healthcare provider will give you a physical exam help find the cause of your pain. If needed,you will have tests. Belly pain has many possible causes. So it can be hard to find the reason for your pain. Giving details about your pain can help. Tell your provider where and when you feel the pain, and what makes it better or worse. Also let your provider know if you have other symptoms such as: Fever Tiredness Upset stomach (nausea) Vomiting Changes in bathroom habits Blood in the stool or black, tarry stool Weight loss that you can't explain (involuntary weight loss?) Also report any family history of stomach or intestinal problems, or cancers. Tell your provider about all your alcohol use and drug use. Tell your provider about all medicines you use, including herbs, vitamins, and supplements. Treating abdominal pain Some causes of pain need emergency medical treatment right away. These include appendicitis or a bowel blockage. Other problems can be treated with rest, fluids, or medicines. Your healthcare provider can give you specific instructions for treatment or self-care based on what is causing your pain. If you have vomiting or diarrhea, sip water or other clear fluids. When you are ready to eat solid foods again, start with small amounts of fvvl-je-dkeqiw, low- fat foods. These include apple sauce, toast, or crackers. When to get medical care Call 911 or go to the hospital right away if you: Can t pass stool and are vomiting Are vomiting blood or have bloody diarrhea or black, tarry diarrhea Have chest, neck, or shoulder pain Feel like you might pass out Have pain in your shoulder blades with nausea Have sudden, severe belly pain Have new, severe pain unlike any you have felt before Have a belly that is rigid, hard, and hurts to touch Call your healthcare provider if you have: Pain for more than 5 days Bloating for more than 2 days Diarrhea for more than 5 days A fever of 100.4 F (38 C) or higher, or as directed by your healthcare provider Pain that gets worse Weight loss for no reason Continued lack of appetite Blood in your stool How to prevent abdominal pain Here are some tips to help prevent abdominal pain: Eat smaller amounts of food at each meal. Don't eat greasy, fried, or other high-fat foods. Don't eat foods that give you gas. Exercise regularly. Drink plenty of fluids. To help prevent GERD symptoms: Quit smoking. Reduce alcohol and foods that increase stomach acid. Don't use aspirin or icba-wrv-ndrubcr pain and fever medicines, if possible. This includes nonsteroidal anti-inflammatory drugs (NSAIDs). Lose excess weight. Finish eating at least 2 hours before you go to bed or lie down. Raise the head of your bed. [id number] [employer]. [address] [place] [address]. All rights reserved. This information is not intended as a substitute for professional medical care. Always follow yourhealthcare professional's instructions. Follow Up Care 05/08/2025 23:40:08 With:OLE PACE MD Address: [address] [place] [phone] When:2-4 days [facility] 07-07-2025 Emergency department Discharge summary Discharge Instructions Thank you for allowing [facility] to assist you with your healthcare needs. The following is importantdischarge information regarding your hospital visit. Diagnosis from Today's Visit Cervical cancer Lt flank pain Vomiting What to Do Next Instructions from Your Care Team No qualifying data available. Post Acute Orders No qualifying data available. You Need to Schedule the Following Appointments Follow Up with OLE PACE MD When:Within 2-4 days Where:[facility] [address] [place] [phone] Allergies Haldol Tongue swelling Oranges Tongue swelling, [...] tab(s) by mouth Once a day Unchanged LORazepam (Ativan 1 mg oral tablet) 1 tab(s) by mouth Three (3) times a day as needed for as needed for anxiety Palliative care patient THO (generalized anxiety disorder) Unchanged ondansetron (ondansetron 4 mg oral tablet) 1 tab(s) by mouth Two (2) times a day Unchanged oxyCODONE (oxyCODONE 5 mg oral tablet [...] medication providers or retail pharmacies. Education Materials Vomiting (Adult) Vomiting is a common symptom that may be due to different causes. These include gastroenteritis (stomach flu), food poisoning and gastritis. There are other more serious causes of vomiting which may be hard to diagnose early in the illness. Therefore, it is important to watch for the warning signs listed below. The main danger from repeated vomiting is dehydration. This is due to excess loss of water and minerals from the body. When this occurs, your body fluids must be replaced. Home care If symptoms are severe, rest at home for the next 24 hours. Because your symptoms may be from an infection, wash your hands often and well. If soap and water are not available, use alcohol-based lump machine operator to keep from spreading the infection to others. Wash your hands for at least 20 seconds. Humming the happy birthday song twice while you wash is aneasy way to make sure you've washed for 20 seconds. Wash your hands after using the toilet, before and after preparing food, before eating food, after changing a diaper, cleaning a wound, caring for a sick person, and blowing your nose, coughing, or sneezing. You should also wash your hands after caring for someone who is sick, touching pet food, ortreats, and touching an animal, or animal waste. You may use acetaminophen or NSAID medicines like ibuprofen or naproxen to control fever, unless another medicine was prescribed. If you have chronic liver or kidney disease or ever had a stomach ulcer or gastrointestinal bleeding, talk with your doctor before using these medicines. Aspirin should never be used in anyone under 18 years of age who is ill with a fever. It may cause severe liver damage. Don't use NSAID medicines if you are already taking one for another condition (like arthritis) or are on aspirin (such as for heart disease, or after a stroke) Don't use tobacco and or drink alcohol, which may worsen your symptoms. If medicines for vomiting were prescribed, take as directed. Once vomiting stops, then follow these guidelines: During the first 12 to 24 hours follow the diet below: Fruit juices. Apple, grape juice, clear fruit drinks, and electrolyte replacement drinks. Beverages. Soft drinks without caffeine; mineral water (plain or flavored), decaffeinated tea and coffee. Soups. Clear broth and bouillon Desserts. Plain gelatin, ice pops, and fruit juice bars. As you feel better, you may add 6 to 8 ounces of yogurt per day. During the next 24 hours you may add the following to the above: Hot cereal, plain toast, bread, rolls, crackers Plain noodles, rice, mashed potatoes, chicken noodle or rice soup Unsweetened canned fruit such as applesauce, bananas (avoid pineapple and citrus) Limit caffeine and chocolate. No spices or seasonings except salt. During the next 24 hours: Gradually resume a normal diet, as you feel better and your symptoms lessen. Follow-up care Follow up with your healthcare provider, or as advised. When to seek medical advice Call your healthcare provider right away if any of these occur: Constant right-sided lower belly pain or increasing general belly pain Continued vomiting (unable to keep liquids down) for 24 hours Vomiting blood or coffee grounds Swollen belly Frequent diarrhea (more than 5 times a day); blood (red or black color) or mucus in diarrhea Reduced urine output or extreme thirst Weakness, dizziness or fainting Unusually drowsy or confused Fever of 100.4 F (38 C) oral or higher, or as directed Yellow color of the eyes or skin [id number] [employer]. [address] [place] [address]. All rights reserved. This information is not intended as a substitute for professional medical care. Always follow yourhealthcare professional's instructions. Abdominal Pain Abdominal pain is pain in the stomach or belly area. Everyone has this pain from time to time. In many cases it goes away on its own. But abdominal pain can sometimes be due to a serious problem, such as appendicitis. So it s important to know when to get help. Causes of abdominal pain There are many possible causes of abdominal pain. Common causes in adults include: Constipation, diarrhea, or gas Stomach acid flowing back up into the esophagus (acid reflux or heartburn) Severe acid reflux, called GERD (gastroesophageal reflux disease) A sore in the lining of the stomach or small intestine (peptic ulcer) Inflammation of the gallbladder, liver, or pancreas Gallstones or kidney stones Appendicitis Intestinal blockage An internal organ pushing through a muscle or other tissue (hernia) Urinary tract infections In women, menstrual cramps, fibroids, ovarian cysts, pelvic inflammatory disease, or endometriosis Inflammation or infection of the intestines, including Crohn's disease and ulcerative colitis Irritable bowel syndrome Diagnosing the cause of abdominal pain Your healthcare provider will give you a physical exam help find the cause of your pain. If needed,you will have tests. Belly pain has many possible causes. So it can be hard to find the reason for your pain. Giving details about your pain can help. Tell your provider where and when you feel the pain, and what makes it better or worse. Also let your provider know if you have other symptoms such as: Fever Tiredness Upset stomach (nausea) Vomiting Changes in bathroom habits Blood in the stool or black, tarry stool Weight loss that you can't explain (involuntary weight loss?) Also report any family history of stomach or intestinal problems, or cancers. Tell your provider about all your alcohol use and drug use. Tell your provider about all medicines you use, including herbs, vitamins, and supplements. Treating abdominal pain Some causes of pain need emergency medical treatment right away. These include appendicitis or a bowel blockage. Other problems can be treated with rest, fluids, or medicines. Your healthcare provider can give you specific instructions for treatment or self-care based on what is causing your pain. If you have vomiting or diarrhea, sip water or other clear fluids. When you are ready to eat solid foods again, start with small amounts of xrey-vm-rfhvqk, low- fat foods. These include apple sauce, toast, or crackers. When to get medical care Call 911 or go to the hospital right away if you: Can t pass stool and are vomiting Are vomiting blood or have bloody diarrhea or black, tarry diarrhea Have chest, neck, or shoulder pain Feel like you might pass out Have pain in your shoulder blades with nausea Have sudden, severe belly pain Have new, severe pain unlike any you have felt before Have a belly that is rigid, hard, and hurts to touch Call your healthcare provider if you have: Pain for more than 5 days Bloating for more than 2 days Diarrhea for more than 5 days A fever of 100.4 F (38 C) or higher, or as directed by your healthcare provider Pain that gets worse Weight loss for no reason Continued lack of appetite Blood in your stool How to prevent abdominal pain Here are some tips to help prevent abdominal pain: Eat smaller amounts of food at each meal. Don't eat greasy, fried, or other high-fat foods. Don't eat foods that give you gas. Exercise regularly. Drink plenty of fluids. To help prevent GERD symptoms: Quit smoking. Reduce alcohol and foods that increase stomach acid. Don't use aspirin or uzrc-van-vkuisba pain and fever medicines, if possible. This includes nonsteroidal anti-inflammatory drugs (NSAIDs). Lose excess weight. Finish eating at least 2 hours before you go to bed or lie down. Raise the head of your bed. [id number] [employer]. [address] [place] [address]. All rights reserved. This information is not intended as a substitute for professional medical care. Always follow yourhealthcare professional's instructions. Additional Information VACCINATE! IT SAVES LIVES! Members of the community who have not yet received the COVID-19 vaccine and would like to receive it can visit one of [facility] vaccine clinics. There are many vaccine clinic locations within the [facility]. For locations and available times, please visit www.[email or web address].[email or web address]/. It is important to note that some COVID mobile vaccine clinics are held outdoors and may be canceled in rainy or stormy conditions. To learn more about pediatric vaccinations (ages 5-11), we invite you to visit the [facility] webpage. [email or web address].[email or web address].org/pages/[email or web address]-Jykpo-Gjbjqtevkzs-Stttlwgdlh-Enddn-Pgg stions.htmlTo learn more about the COVID-19 vaccine, we invite you to visit the CDC website for a list of frequently asked questions. https://www.cdc.gov/coronavirus/2019-ncov/vaccines/faq.html [facility] Patient Portal Access Instructions: Stay connected with your healthcare team and access your personal medical information anytime with the [facility] Patient Portal. If you would like a full copy of your medical records please contact the [facility] Medical Records Department Friday through Friday between 8a.m. and 4:30p.m. Please follow the directions below to access the portal: 1.Access the email account you provided upon registration to the [facility].2.Look for an invitation email from [facility].3.Open the email and access the invitation link: Accept Invitation to [employer]4.Fill in the required quintero to create your account. Sign into [email or web address] Go with your username and password that you [...] you will allow to register on the [employer] Patient Portal for access to your information. You can also access the [employer] Patient Portal on the [employer]. Simply click on Health Records under [employer] and then click on the [employer] logo. HOW TO SAFELY DISPOSE OF PRESCRIPTION [...] Call your local pharmacy or go to http://bit.ly/5B2Dm3c to find one close to you.3.Make use of household items: Use cat litter or old coffee grounds to dispose medications if other options arenot available. Mix your drugs with these household products, seal them in an airtight container andthrow it into the garbage. Call [facility]: [phone] to be sure your drugs can be [...] a CHART COPY Signatures Patient Education Materials Vomiting (Adult) Abdominal Pain Medication Leaflets My discharge plan and instructions have been reviewed and explained to me and I,LALY NAVAS understand my current condition and have read and understand these discharge instructions. I have received a written copy of the plan/instructions. If I have questions, I am aware that I should contact my doctor. Patient/[employer] Signature: Date/Time: Relationship to Patient: Witness Name/Signature: [id number] Note* Exam Date Time Procedure Performing Provider Status 05/09/25 1:[address] Abdomen/Pelvis w/o Contrast JUVENTINO GRECO MD; Auth (Verified) [id number] ORIGINAL EXAMINATION: CT OF THE ABDOMEN AND PELVIS WITHOUT CONTRAST 05/09/2025 1:37 am TECHNIQUE: CT of the abdomen and pelvis was performed without the administration of intravenous contrast. Multiplanar reformatted images are provided for review. Automated exposure control, iterative reconstruction, and/or weight based adjustment of the mA/kV was utilized to reduce the radiation dose to as low as reasonably achievable. COMPARISON: CT abdomen and pelvis on 05/03/2025 CT abdomen pelvis on 04/04/2025 HISTORY: ORDERING SYSTEM PROVIDED HISTORY: Reason for Exam: PATIENT C/O FLANK PAIN, NAUSEA, AND VOMITING. HAS LEFT NEPHROSTOMY TUBE. TUBE WAS SUPPOSED TO BE EXCHANGED LAST MONTH BUT WAS NOT DONE DUE TO PATIENT HAVING ISSUES WITH ANESTHESIA. Abdominal/flank pain, stone suspected FINDINGS: Lower Chest: No acute abnormality is present at the lung bases. Organs: The liver, biliary tree, pancreas, spleen, adrenal glands, and the right kidney are unremarkable. Left percutaneous nephrostomy tube is in satisfactory position with loop in the left renal pelvis. There is no hydronephrosis. There are approximately 4 stones in the distal left ureter that are each 3 mm or less in diameter. The left ureter is mildly dilated. Similar distal left ureteral stones are present on 04/04/2025. There is no left perinephric abnormality. No abnormal collection is seen along the nephrostomy tube. GI/Bowel: No intestinal obstruction or inflammation is present. There is no free intraperitoneal air or abnormal fluid collection in the abdomen. Pelvis: Urinary bladder is partly distended. No stones are in the urinary bladder. There is no abnormal fluid collection in the pelvis. Peritoneum/Retroperitoneum: There is no retroperitoneal lymph node enlargement or hematoma. Abdominal aorta and inferior vena cava are normal. Bones/Soft Tissues: No acute findings. IMPRESSION: 1. Left percutaneous nephrostomy tube is in satisfactory position. There is no hydronephrosis. 2. There are approximately 4 stones in the distal left ureter that are each 3 mm or less in diameter. The left ureter is mildly dilated. Interpreted by: Juventino Greco MD Preliminary Report By: Juventino Greco MD Electronically signed By Juventino Greco MD Dictated Date: 05/09/2025 1:40:51 AM Prelim Date: 05/09/2025 1:46:35 AM Sign Date: 05/09/2025 1:46:35 AM Ordering Provider: JASKARAN MEDRANO Interpreted by: Juventino Greco MD Preliminary Report By: Juventino Greco MD Electronically signed By Juventino Greco MD Dictated Date: 05/09/2025 1:40:51 AM Prelim Date: 05/09/2025 1:46:35 AM Sign Date: 05/09/2025 1:46:35 AM Ordering Provider: JASKARAN [facility]07-05-2025 Discharge summary Date of Service 05/07/2025 Discharge Diagnosis Left flank pain Nephrolithiasis Anxiety Asthma. Not currently exacerbation. Hospital Course This is a split/shared visit with Dr. Mackey. Pt is a 34-year-old female with history of cervical cancer in remission and nephrolithiasis s/p nephrostomy tube who presents to the ED for left-sided flank pain. The patient has a left-sided nephrostomy tube and reportedly it needed changed on 04/13/2025ut did she get it exchanged at that time, believes it is clogged.The patient frequently leaves AMAincluding most recently discharged on 04/07/2025.Patient is hemodynamically stable. Urinalysis, BMP and CBC essentially unremarkable . test negative. Recent CT abdomen/pelvis without contrastdone 05/03 shows distal left ureteral stones. Mild left hydroureter. Consult placed to Urology however they are not going to see as she has been discharged from their service due to not getting along. IR nephrostomy tube exchange done 05/05. Resolution of N/V. Has follow up with Dr. Pace on the for continued pain management. Recommend follow up with Urology for definitive nephrolithiasis management. Allergies Haldol Tongue swelling Oranges Tongue swelling, Difficulty breathing penicillin Hives Consults Consult to Physician - Ordered -- 05/05/25 2:37:00 EDT, OLE PANTOJA MD, Routine, Needs nephrostomy exchanged Imaging Results and Diagnostics IR Nephrostomy Tube Result Date: May 05, 2025 Verified By: CLOTILDE RANDHAWA DO CLINICAL STATEMENT: IMPRESSION: Replacement of previously dislodged left nephrostomy tube via previouslyestablished tract with new 12 Chadian nephrostomy catheter tip curled in theleft renal pelvis. No complication suggested. Objective Vitals and Measurements T: 36.9 C (Oral) TMIN: 36.7 C (Oral) TMAX: 37 C (Oral) HR: 74 RR: 16 BP: 104/78 SpO2: 97% Weight Dosing Weight: 51.4 kg (05/05/25) Dosing Weight: 52.9 kg (05/04/25) General: Alert and oriented x 3, NAD Head: Normocephalic, mmm, sclera nonicteric Cardiovascular: Normal rate and rhythm, no murmur, - edema Respiratory: Lungs clear to auscultation bilaterally, easy Abdomen: soft and non-distended, bowel sounds active all 4 quadrants Neurological: Moving all 4 extremities, speech clear Psychological: normal affect, cooperative, good eye contact Code Status No qualifying data available. Admission Date 05/05/2025 Discharge Date 05/07/[address] Pace regarding pain medication/management Medications Unchanged acetaminophen (Tylenol Extra Strength 500 mg oral tablet)2 tab(s) by mouth every 4 hours as needed as needed for pain. escitalopram (Lexapro 20 mg oral tablet)1 tab(s) by mouth once a day. Refills: 5. LORazepam (Ativan 1 mg oral tablet)1 tab(s) by mouth three (3) times a day as needed as needed for anxiety. Refills: 2. ondansetron (ondansetron 4 mg oral tablet)1 tab(s) by mouth two (2) times a day. Refills: 2. oxyCODONE (oxyCODONE 5 mg oral tablet ( IMMEDIATE release ))2 tab(s) by mouth every 6 hours as needed for pain. Refills: 0. Follow Up Follow Up with OLE PACE MD When:Within 1-2 days Where:[address] [place] [address] [place] [address]- [phone] Additional Information: Please call the office to schedule a hospital follow up appointment. Follow Up Appointments No qualifying data available. Follow Up Labs/Studies Discharge Labs No Follow-up Labs Discharge Studies No Follow-up Studies Discharge Diet Discharge Diet - Ordered -- No changes were made to your diet during your hospital stay. Please resume your pre hospitalization diet on discharge., 05/07/25 9:10:00 EDT Discharge Activity Discharge Activity - Ordered -- Resume your pre-hospitalization activity, 05/07/25 9:10:00 EDT Condition on Discharge stable Readmission Risk/Palliative Score LACE Score: 11 (05/05/25 08:22:00) Palliative Total Score: 2 (05/05/25 08:22:00) Discharge Disposition Home Time Spent > 30 minutes [1] Progress Note; TERRY RAMOS APRN-SWING FRAME 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 05/06/2025 12:49 EDT Digitally Signed by RICHARDTERRY VERONICA NEGRA on 05/07/2025 12:09 PM [id number] Discharge summary Date of Service 05/07/2025 Discharge Diagnosis Left flank pain Nephrolithiasis Anxiety Asthma. Not currently exacerbation. Hospital Course This is a split/shared visit with Dr. Mackey. Pt is a 34-year-old female with history of cervical cancer in remission and nephrolithiasis s/p nephrostomy tube who presents to the ED for left-sided flank pain. The patient has a left-sided nephrostomy tube and reportedly it needed changed on 04/13/2025ut did she get it exchanged at that time, believes it is clogged.The patient frequently leaves AMAincluding most recently discharged on 04/07/2025.Patient is hemodynamically stable. Urinalysis, BMP and CBC essentially unremarkable . test negative. Recent CT abdomen/pelvis without contrastdone 05/03 shows distal left ureteral stones. Mild left hydroureter. Consult placed to Urology however they are not going to see as she has been discharged from their service due to not getting along. IR nephrostomy tube exchange done 05/05. Resolution of N/V. Has follow up with Dr. Pace on the for continued pain management. Recommend follow up with Urology for definitive nephrolithiasis management. Allergies Haldol Tongue swelling Oranges Tongue swelling, Difficulty breathing penicillin Hives Consults Consult to Physician - Ordered -- 05/05/25 2:37:00 EDT, OLE PANTOJA MD, Routine, Needs nephrostomy exchanged Imaging Results and Diagnostics IR Nephrostomy Tube Result Date: May 05, 2025 Verified By: CLOTILDE RANDHAWA DO CLINICAL STATEMENT: IMPRESSION: Replacement of previously dislodged left nephrostomy tube via previouslyestablished tract with new 12 Chadian nephrostomy catheter tip curled in theleft renal pelvis. No complication suggested. Objective Vitals and Measurements T: 36.9 C (Oral) TMIN: 36.7 C (Oral) TMAX: 37 C (Oral) HR: 74 RR: 16 BP: 104/78 SpO2: 97% Weight Dosing Weight: 51.4 kg (05/05/25) Dosing Weight: 52.9 kg (05/04/25) General: Alert and oriented x 3, NAD Head: Normocephalic, mmm, sclera nonicteric Cardiovascular: Normal rate and rhythm, no murmur, - edema Respiratory: Lungs clear to auscultation bilaterally, easy Abdomen: soft and non-distended, bowel sounds active all 4 quadrants Neurological: Moving all 4 extremities, speech clear Psychological: normal affect, cooperative, good eye contact Code Status No qualifying data available. Admission Date 05/05/2025 Discharge Date 05/07/[address] Pace regarding pain medication/management Medications Unchanged acetaminophen (Tylenol Extra Strength 500 mg oral tablet)2 tab(s) by mouth every 4 hours as needed as needed for pain. escitalopram (Lexapro 20 mg oral tablet)1 tab(s) by mouth once a day. Refills: 5. LORazepam (Ativan 1 mg oral tablet)1 tab(s) by mouth three (3) times a day as needed as needed for anxiety. Refills: 2. ondansetron (ondansetron 4 mg oral tablet)1 tab(s) by mouth two (2) times a day. Refills: 2. oxyCODONE (oxyCODONE 5 mg oral tablet ( IMMEDIATE release ))2 tab(s) by mouth every 6 hours as needed for pain. Refills: 0. Follow Up Follow Up with OLE PACE MD When:Within 1-2 days Where:[address] [place] [address] [place] [address]- [phone] Additional Information: Please call the office to schedule a hospital follow up appointment. Follow Up Appointments No qualifying data available. Follow Up Labs/Studies Discharge Labs No Follow-up Labs Discharge Studies No Follow-up Studies Discharge Diet Discharge Diet - Ordered -- No changes were made to your diet during your hospital stay. Please resume your pre hospitalization diet on discharge., 05/07/25 9:10:00 EDT Discharge Activity Discharge Activity - Ordered -- Resume your pre-hospitalization activity, 05/07/25 9:10:00 EDT Condition on Discharge stable Readmission Risk/Palliative Score LACE Score: 11 (05/05/25 08:22:00) Palliative Total Score: 2 (05/05/25 08:22:00) Discharge Disposition Home Time Spent > 30 minutes [1] Progress Note; TERRY RAMOS 05/06/2025 12:49 EDT Digitally Signed by TERRY RAMOS on 05/07/2025 12:09 PM [id number] Discharge instructions Patient Education 05/07/2025 09:18:13 Radiology- Nephrostomy/Nephroureteral Tube Exchange 12/26/2022(CUSTOM) [facility] Nephrostomy/Nephroureteral Tube Exchange Discharge Instructions Interventional Radiology [facility] [address] [place] [address] The procedure that you had done today [...] the feeling of the need to urinate. Zosr-dbz-umosgzq pain medication should be used for pain [...] the gauze. Supplies may be obtained at: [address] [facility] Any questions or concerns, please contact your physician or Interventional Radiology at [phone] from 8-4:30pm Friday-Friday. If you do not have a follow up appointment scheduled at the time of discharge, please call Interventional Radiology at the number listed above. Follow Up Care 05/04/2025 18:16:37 With:OLE PACE MD Address: [address] [place] [id number] [phone] When:1-2 days Comments:Please call the office to schedule a hospital follow up appointment. [facility] 07-05-2025 Note Discharge Instructions Thank you for allowing [facility] to assist you with your healthcare needs. The following is importantdischarge information regarding your hospital visit. Your Care Team OLE PACE MD Your Diagnosis THO (generalized anxiety disorder) Palliative care patient What to do next Instructions From Your Doctor Call Dr. Pace regarding pain medication/management Scheduled Follow-Up Appointments Appointment Type When With Where Contact Information StatusPALL OV Follow Up 05/11/2025 11:00 AM EDT OLE PACE MD [facility] Confirmed SO OV Follow Up 05/18/2025 11:20 AM EDT [facility] [address] [place] [phone] Confirmed IR Nephrostomy Exchange 05/19/2025 01:00 PM EDT IR Confirmed Follow Up Appointments Follow Up with OLE PACE MD When:Within 1-2 days Where:[address] [place] [phone] Additional Information: Please call the office to schedule a hospital follow up appointment. The Following Activity and Diet Have Been Ordered for You Discharge Activity - Ordered -- Resume your pre-hospitalization activity, 05/07/25 9:10:00 EDT Discharge Diet - Ordered -- No changes were made to your diet during your hospital stay. Please resume your pre hospitalization diet on discharge., 05/07/25 9:10:00 EDT The Following Equipment Has Been Ordered [...] tab(s) by mouth Once a day Unchanged LORazepam (Ativan 1 mg oral tablet) 1 tab(s) by mouth Three (3) times a day as needed for as needed for anxiety Palliative care patient THO (generalized anxiety disorder) Unchanged ondansetron (ondansetron 4 mg oral tablet) 1 tab(s) by mouth Two (2) times a day Unchanged oxyCODONE (oxyCODONE 5 mg oral tablet [...] medication providers or retail pharmacies. Education Materials [facility] Nephrostomy/Nephroureteral Tube Exchange Discharge Instructions Interventional Radiology [facility] [address] [place] [address] The procedure that you had done today [...] the feeling of the need to urinate. Apgb-uhq-bdsrzek pain medication should be used for pain [...] the gauze. Supplies may be obtained at: [facility] [address] [facility] [address] [facility] Any questions or concerns, please contact your physician or Interventional Radiology at [phone] from 8-4:30pm Friday-Friday. If you do not have a follow up appointment scheduled at the time of discharge, please call Interventional Radiology at the number listed above. Additional Information VACCINATE! IT SAVES LIVES! Members of the community who have not yet received the COVID-19 vaccine and would like to receive it can visit one of [facility] vaccine clinics. There are many vaccine clinic locations within the [facility]. For locations and available times, please visit [email or web address] It is important to note that some COVID mobile vaccine clinics are held outdoors and may be canceled in rainy or stormy conditions. To learn more about pediatric vaccinations (ages 5-11), we invite you to visit the [facility] webpage. [email or web address] learn more about the COVID-19 vaccine, we invite you to visit the CDC website for a list of frequently asked questions.https://www.cdc.gov/coronavirus/2019-ncov/vaccines/faq.html [facility] Patient Portal Access Instructions: Stay connected with your healthcare team and access your personal medical information anytime with the [employer] Patient Portal. Please follow the directions below to create your [employer] account: 1.Access the email account you provided upon registration to the hospital/physician office.2.Look for an invitation email from [facility].3.Open the email and access the invitation link: AcceptInvitation to [facility].4.Fill in the required quintero to create your account. To access your account, visit [employer]. Click the blue button labeled Access Patient Portal and then log in with the username and password that you created in the steps above. You will be able to view your test results, lab results, a summary of your visits, upcoming appointments and more. There is also a convenient messaging option where you can send secure messages to your [employer]. In addition, you will have the ability to download any documents or summaries to your computer and/or send the information securely to a physician. Remember that your healthcare information is confidential, so carefully consider who you will allowto register on the [facility] Patient Portal for access to your information. You can also access the [facility] Patient Portal on the [employer] joya. Simply click on Patient Portal and then log into your account. If you would like to receive a full copy of your medical records, please contact the [facility] Records Department by calling [phone], Friday through Friday between 8 a.m. and [...] Call your local pharmacy or go to [email or web address] to find one close to you.3.Make use of household items: Use cat litter or old coffee grounds to dispose medications if other options arenot available. Mix your drugs with these household products, seal them in an airtight container andthrow it into the garbage. Call [facility]: [phone] to be sure your drugs can be [...] aware that I should contact my doctor. Patient/[employer] Signature: Date/Time: Relationship to Patient: Witness Name/Signature: Date/Time: [id number] Note Date of Service 05/06/2025 Chief Complaint L flank pain Subjective This is a split/shared visit with Dr. Mackey. Pt is a 34-year-old female with history of cervical cancer in remission and nephrolithiasis s/p nephrostomy tube who presents to the ED for left-sided flank pain. The patient has a left-sided nephrostomy tube and reportedly it needed changed on 04/13/2025 but did she get it exchanged at that time, believes it is clogged.The patient frequently leaves AMA including most recently discharged on 04/07/2025.Patient is hemodynamically stable. Urinalysis, BMP and CBC essentially unremarkable . test negative. Recent CT abdomen/pelvis without contrast done 05/03 shows distal left ureteral stones. Mild left hydroureter. Consult placed to Urology however they are not going to see as she has been discharged from their service due to not getting along. IR nephrostomy tube exchange done 05/05. Pt doing okay, still having pain but states that it usually lasts for a week after exchange done. No new complaints. Objective Vitals and Measurements T: 36.6 C (Oral) TMIN: 36.3 C (Oral) TMAX: 36.8 C (Oral) HR: 89 RR: 18 BP: 106/71 SpO2: 94% Intake and Output 7AM Yesterday to 7AM Today Intake and Output (Last 24 hours) Intake Oral Intake 640.00 Output Urine Voided 400.00 Urostomy Output: 300.00 Stool Count 0.00 Urine Count 3.00 Total Summary Total Intake 640.00 Total Output 700.00 Fluid Balance -60.00 Physical Exam General: Alert and oriented x 3, NAD Head: Normocephalic, mmm, sclera nonicteric Cardiovascular: Normal rate and rhythm, no murmur, - edema Respiratory: Lungs clear to auscultation bilaterally, easy Abdomen: soft and non-distended, bowel sounds active all 4 quadrants Neurological: Moving all 4 extremities, speech clear Psychological: normal affect, cooperative, good eye contact Weight Dosing Weight: 51.4 kg (05/05/25) Dosing Weight: 52.9 kg (05/04/25) Medications Medications (11) Active Scheduled: (1) escitalopram 20 mg tablet 20 mg 1 tab(s), Oral, qDay Continuous: (1) D5/NS 1,000 mL 1,000 mL, Intravenous, 75 mL/hr PRN: (9) acetaminophen 325 mg Tablet 650 mg 2 tab(s), Oral, q6hWA dextrose 50% Solution Disp syringe 50 mL 25 gram(s) 50 mL, IV Push, AsDirected HYDROmorphone 0.5 mg/0.5 mL syringe 0.5 mg 0.5 mL, IV Push, q3h HYDROmorphone 0.5 mg/0.5 mL syringe 0.5 mg 0.5 mL, IV Push, q3h LORAZEPam 1 mg Tablet 1 mg 1 tab(s), Oral, TID melatonin 3 mg tablet 3 mg 1 tab(s), Oral, qHS melatonin 3 mg tablet 3 mg 1 tab(s), Oral, qHS ondansetron 2 mg/ 1 mL 2 mL INJ 4 mg 2 mL, IV Push, q4h oxyCODONE 10 mg Tab (Immediate Release) 10 mg 1 tab(s), Oral, q4h Lab Results 05/05 05:58 WBC: 7.1 Hgb: 11.7 L Hct: 33.8 L Platelet: 350 Neutrophil %: 55.4 Glucose Level: 84 Sodium Level: 142 Potassium Level: 4.1 BUN: 6.0 L Creatinine Lvl (s): 0.91 EKG No qualifying data available. Assessment/Plan Left flank pain Anxiety Asthma. Not currently exacerbation. S/P L nephrostomy tube exchange. Will transition to oral oxycodone for pain with Dilaudid prn for breakthrough. At this time no clinical indication for antibiotics as she is afebrile with no leukocytosis Urinalysis not concerning for infection. Recent urine culture contaminated. Pt should attempt to get in with a new Urologist as she would benefit from continued follow up with Urology. Will continue with pain control as patient was using IV Dilaudid q2h overnight. If adequate pain control anticipate discharge in the am All other chronic conditions stable, continue current medications Level of Care Indication Regular Floor DVT Prophlyaxis Not required based on norah score Maintenance IVF Indication NA / No maintenance IVF Indwelling Urinary Catheter Indication NA No indwelling catheter Anticipated Timeline of Discharge 24 hours Anticipated DC Disposition Home without services Digitally Signed by TERRY RAMOS on 05/06/2025 01:01 PM [id number] Note* Exam Date Time Procedure Performing Provider Status 05/05/25 5:36 PM IR Nephrostomy Tube CLOTILDE RANDHAWA; Auth (Verified) [id number] ORIGINAL PROCEDURE: INTRODUCTION-12 Chadian left NEPHRO TUBE via previously established tract MODERATE CONSCIOUS SEDATION 05/05/2025 HISTORY: ORDERING SYSTEM PROVIDED HISTORY: Reason for Exam: L nephrostomy tube TECHNIQUE: Maximum sterile barrier technique including hand hygiene, skin prep and sterile ultrasound technique utilized for procedure. Following informed consent, pause a confirm/time-out patient is placed in prone position on fluoroscopic table. Previous left nephrostomy tube entry site was prepped and draped in sterile fashion. Following wire recanalization of previously established tract, 5 Chadian catheter was advanced and antegrade nephrostogram was performed. Catheter was exchanged over stiff guidewire for new 12 Chadian nephrostomy catheter. Tip curled in left renal pelvis. Antegrade nephrostogram performed to confirm satisfactory tube position. Catheter affixed to the patient's skin. External drainage bag and dressing applied. Patient tolerated procedure well. No complication suggested. CONTRAST: 8 mL Isovue 300 SEDATION: Moderate sedation was ordered and supervised by the attending with physician rdoy-uw-jiaz monitoring. Medications were provided and recorded by Radiology nurses. See radiology nursing notes for further discussion. FLUOROSCOPY DOSE AND TYPE: Radiation Exposure Index: Kerma 6.68 mGy, 1.5 minutes fluoroscopy time for procedure DESCRIPTION OF PROCEDURE: Informed consent was obtained after a detailed explanation of the procedure including risks, benefits, and alternatives. [place] protocol was observed. Sterile gowns, masks, hats and gloves utilized for maximal sterile barrier. As above in technique section FINDINGS: Intraprocedural images demonstrate satisfactory caval is a diop of previously established tract into the left renal collecting system. Antegrade nephrostogram demonstrates mild left hydronephrosis. Postprocedure images demonstrate new 12 Chadian left nephrostomy tube tip curled in the left renal pelvis. No complication suggested. IMPRESSION: Replacement of previously dislodged left nephrostomy tube via previously established tract with new 12 Chadian nephrostomy catheter tip curled in the left renal pelvis. No complication suggested. Interpreted by: Clotilde Randhawa DO Preliminary Report By: Clotilde Randhawa DO Electronically signed By Clotilde Randhawa DO Dictated Date: 05/05/2025 5:56:15 PM Prelim Date: 05/05/2025 5:58:35 PM Sign Date: 05/05/2025 5:58:35 PM Ordering Provider: GUCCI MACKEY Interpreted by: Clotilde Randhawa DO Preliminary Report By: Clotilde Randhawa DO Electronically signed By Clotilde Randhawa DO Dictated Date: 05/05/2025 5:56:15 PM Prelim Date: 05/05/2025 5:58:35 PM Sign Date: 05/05/2025 5:58:35 PM Ordering Provider: GUCCI MACKEY [id number] Note IR Procedure Record Summary Primary Physician: CLOTILDE RANDHAWA DO Finalized Date/Time: 05/05/25 17:33:43 Pt. Name: ANTONELLA LALY L /Sex: 1990 Female Med Rec #: [id number] Physician: RHIANNON ARTEAGA MD Financial #: [id number] Pt. Type: O Room/Bed: [facility]/A Admit/Disch: 05/04/25 18:15:33 - Institution: Allergies identified in patient's electronic medical record at time of printing on 05/05/25 Entry 1 Entry 2 Entry 3 Substance Haldol Oranges penicillin Reaction Type Allergy Allergy Allergy Last Modified By: Fany Ruelas LPN, Kimberly V. RN Holt, Kimberly V. RN 11/19/23 09:39:23 07/21/23 10:11:02 07/21/23 10:10:45 Case Attendance- IR Entry 1 Entry 2 Entry 3 Case Attendee Lyla Saucedo MICHAEL S DO Fierstos, Megan R Rad RN Tech Role Performed Procedure Nurse Primary Surgeon Circulating Technologist Details Time In 05/05/25 16:50:00 05/05/25 17:13:00 05/05/25 16:50:00 Time Out 05/05/25 17:31:00 05/05/25 17:21:00 05/05/25 17:31:00 Procedure/Preference IR Nephrostomy Tube (SN) IR Nephrostomy Tube (SN) IR Nephrostomy Tube (SN) Card Last Modified By: Padmini Fairchild Megan R Rad Fierstos, Megan R Jet Engine Mechanic 05/05/25 17:32:47 Tech 05/05/25 17:32:47 Tech 05/05/25 17:32:47 Entry 4 Case Attendee Sam Sim Role Performed Scrub Technologist Details Time In 05/05/25 16:50:00 Time Out 05/05/25 17:31:00 Procedure/Preference IR Nephrostomy Tube (SN) Card Last Modified By: Padmini Fairchild Jet Engine Mechanic 05/05/25 17:32:47 Radiology Procedures- IR Entry 1 Procedure/Preference IR Nephrostomy Tube (SN) Actual Procedure ir nephrostomy tube Card Primary Procedure Yes Primary Surgeon CLOTILDE RANDHAWA DO Anesthesia/Sedation IV Sedation, Local Type Additional Procedure Times Start 05/05/25 17:13:00 Stop 05/05/25 17:21:00 Specialty Service SN Radiology Procedure EBL 0 mL Last Modified By: Padmini Fairchild Jet Engine Mechanic 05/05/25 17:32:50 Radiology Procedure Details - IR Entry 1 Radiology Sedation Case Times Sedation Start Time 05/05/25 17:15:00 Sedation Stop Time 05/05/25 17:21:00 Sedation Total Time 6minutes Radiology - Fluid/Drainage Radiology Contrast Contrast Used? Yes Dose 8 mL Medication CONTRAST ISOVUE 300 100ML 10/BX 1315-35 Radiology Flouroscopy Fluoroscopy Used? Yes Fluoro Dose (mGy) 6.68 Fluoro Time 1.5minutes Radiology Local Local Used? Yes Local Type: lidocaine 1% Local Dose 8ml Radiology Procedure Site Site/Location left flank Site Condition No complications Dressing Type Tagaderm Technologist Notes 12Fr x35cm neph tube reinserted on the left, 2.0 silk used for suture Last Modified By: Padmini Fairchild Jet Engine Mechanic 05/05/25 17:29:05 General Case Data - IR Entry 1 Case Information Room AH IR 17 Case Level IR Level 3 Wound Class None Specialty SN Radiology Procedure ASA Class None Diagnosis Preop Diagnosis left neph tube fell out Postop Same As Preop Yes Postop Diagnosis left neph tube fell out Last Modified By: Padmini Fairchild [place] 05/05/25 17:33:07 Medication Administration- IR Entry 1 Entry 2 Medication versed fentanyl Time Administered 05/05/25 17:15:00 05/05/25 17:15:00 Route of Admin IV Push IV Push Dose 1mg 50mcg Volume VORB * *Verbal Order Read Back (VORB) is required for NON- PHYSICIAN administration of medications. Administered by No No Physician? Administered by: Lyla Saucedo Jennifer N RN RN Verbal Order Read CLOTILDE RANDHAWA MICHAEL S DO Back from: Last Modified By: Padmini Fairchild [email or web address] 05/05/25 17:17:38 Tech 05/05/25 17:17:38 Procedure Case Times- IR Entry 1 Patient In Procedure Patient In OR 05/05/25 16:50:00 Patient Out of OR 05/05/25 17:31:00 Procedure Start/Stop Procedure Start Time 05/05/25 17:13:00 Procedure Stop Time 05/05/25 17:21:00 Last Modified By: Padmini Fairchild [place] 05/05/25 17:29:18 Immediate Post OP Note - IR Entry 1 Immediate Post Yes Findings Successful left neph Procedure Note tube reinsertion displayed for Physician to review Closure Technique Closure Technique Other than Primary Last Modified By: Padmini Fairchild [place] 05/05/25 17:18:38 Immediate Post OP Note - IR Signed By: CLOTILDE RANDHAWA DO 05/05/25 17:21 Allergy Information- IR Entry 1 Allergies Reviewed? Yes Allergies Reviewed Medical Record With Last Modified By: Padmini Fairchild [place] 05/05/25 17:11:17 Radiology Protocols/Time Out- IR Entry 1 Preprocedure Clinician Verifies Correct patient ID When Clinically Confirmation of correct using name & date Indicated side(s) and site(s), or MRN, Accurate Correct diagnostic and procedure, complete radiology tests Informed Consent, H & P available update immediately prior to procedure, if applicable, Clinical team introduction complete OR/Procedure Room/Bedside Time 05/05/25 17:13:00 Clinician Verifies Correct patient identity including EMR & records using name and date or medical record number, Accurate procedure consent form, Correct patient position, Necessary equipment is available, Anticipated non-routine events with surgical team (case duration, estimated blood loss, patient specific concerns)., Parada patient factors for recovery and management identified with surgical team. When Applicable Confirmation correct Team Members CLOTILDE RANDHAWA DO, side and site marked, Present for Time Out Lyla Saucedo Relevant images and RN, Sam Sim results are properly Grace, Padmini Fairchild labeled and R Jet Engine Mechanic appropriately displayed, Alcohol based prep dry Instrument Sterility Team Members Sam Sim Verifying Sterility Procedure IR Nephrostomy Tube (SN) Last Modified By: Padmini Fairchild Jet Engine Mechanic 05/05/25 17:16:02 Skin Prep- IR Entry 1 Procedure IR Nephrostomy Tube (SN) Skin Prep Prep Area Flank Side Left By Sam Sim Prep Agents Chloraprep Hair Removal Method N/A Last Modified By: Padmini Fairchild Jet Engine Mechanic 05/05/25 17:18:04 Patient Positioning- IR Entry 1 Procedure IR Nephrostomy Tube (SN) Body Position OP Prone Feet Uncrossed? n/a Pressure Points n/a Checked Last Modified By: Padmini Fairchild Jet Engine Mechanic 05/05/25 17:18:13 Radiology Procedure Plan - IR Entry 1 [...] and from signs and symptoms symptoms of chemical of electrical injury. injury. Radiology - Action Plan Outcomes Met? Yes Sheet Metal Duct Installer Apprentice Lyla Saucedo Completing microelectronics technician Plan Last Modified By: Padmini Fairchild Jet Engine Mechanic 05/05/25 17:18:59 Case Comments Finalized By: Padmini Fairchild Jet Engine Mechanic Document Signatures Signed By: Padmini Fairchild 05/05/25 17:33 [id number] Procedure note Date of Service INTERVENTIONAL RADIOLOGY POST PROCEDURE NOTE Pre-Procedure Diagnosis: [accidental removal left nephrostomy tube ] Post Procedure Diagnosis: Same. Enrolled Nurse: Dr. Clotilde Randhawa DO Procedure: [recanalization of previous left nephrostomy tube tract and placement of new 12 fr left nephrostomy tube ] Anesthesia: [1% lidocaine without epinephrine] Findings: [ new 12 fr left nephrostomy tube tip curled in left renal pelvis. catheter fixed to skin. external drain bag applied. no complication ] Estimated Blood Loss: Minimal (Less Than 10 mL). [ ] Specimen: _ Complications: None. Full report with procedural details to follow and will become available under the Radiology tab of Results Review. Please contact for any questions or concerns. _ Digitally Signed by CLOTILDE RANDHAWA DO on 05/05/2025 05:26 PM [id number] Evaluation + Plan noteExtracted from: Title:History and Physical Author:SERGEY ARTEAGA MD Date:05/05/25 Left flank pain. History of chronic nephrostomy tube after cervical cancer with radiation. Reportedly, the patient is supposed to have her nephrostomy tube changed. Clinically, she is quite stable with the exception of intense nausea. At risk of dehydration if inciting pathology is not addressed. Noted to have stones and hydroureter on CT. Pain control Nausea medication IV fluids Consult nephrology Okay for liquids. N.p.o. prior to the morning in case of procedure. Anxiety. Chronic. Continue medications. Asthma. Not currently exacerbation. Continue medications Medications were not verified by pharmacy at the time of this dictation. Reconciliation to be completed once medications are verified; will address additional chronic medical problems at that time. DVT prophylaxis: SCDs Note dictated using voice recognition software and may contain typographical errors. Future Appointments Appointment Date:05/11/2025 11:00:00 AM Scheduled Provider:OLE PACE MD Location:[facility] Type:PALL OV Follow Up Appointment Date:05/18/2025 11:20:00 AM Scheduled Provider: Location:[facility] Appointment Type:SO OV Follow Up Appointment Date:05/19/2025 01:00:00 PM Scheduled Provider: Location:[facility] Appointment Type:IR Nephrostomy Exchange Future Scheduled Tests Laboratory* hCG, quantitative (AH/AM Only) 11/15/24 Radiology* IR Nephrostomy Exchange 05/19/25 * IR Nephrostomy Exchange 12/30/24 * CT Renal 03/08/25 * NM Kidney Diuretic 03/08/25 * NM Kidney Diuretic 04/12/25 [facility] 07-03-2025 History and physical note Date of Service 05/05/25 Chief Complaint nephro drain is clogged and is in need of replacement . c/o left flank pain History of Present Illness 34-year-old female presents to the ED for left-sided flank pain. History obtained by patient, ED physician, chart review. The patient has a left-sided nephrostomy tube and reportedly it needed changed on 04/13/2025. The patient was refusing at that time. Now she is agreeable to have a change. Readmission documentation: The patient frequently leaves AMA including most recently discharged on 04/07/2025. At this time, agreeable to remaining for any urologic procedure. Consequently, patient to be readmitted. Patient is hemodynamically stable. Urinalysis BMP and CBC urine. test negative. CT abdomen pelvis without contrast shows distal left ureteral stones. Mild left hydroureter. Physical Exam Vitals and Measurements T: 36.9 C (Oral) HR: 71 RR: 18 BP: 121/98 SpO2: 93% WT: 52.9 kg Weight Dosing Weight: 52.9 kg (05/04/25) GA: Alert and oriented x3, no acute distress Abd: Not distended : Left-sided discomfort to palpation. Nephrostomy tube without surrounding concerning findings. HEENT: NCAT, sclera anicteric, oral mucosa moist Pulmonary: No tachypnea or use of accessory respiratory muscles. MSK: No gross deformities Cardiovascular: Not tachycardic Skin: Warm and dry Neuro: Spontaneous movement of all extremities, cranial nerves II through XII grossly normal Psychiatric: Thought content, associations, attention are all normal. Lab Results 05/04 21:38 WBC: 7.5 10^3/mcL (05/04/25 21:38:00) RBC: 3.73 10^6/mcL Low (05/04/25 21:38:00) Hgb: 12.6 G/dL (05/04/25 21:38:00) Hct: 35.2 % (05/04/25 21:38:00) MCV: 94.3 fL (05/04/25 21:38:00) MCH: 33.7 pg High (05/04/25 21:38:00) MCHC: 35.7 G/dL (05/04/25 21:38:00) RDW: 15.4 % (05/04/25 21:38:00) Platelet: 336 10^3/mcL (05/04/25 21:38:00) MPV: 6.6 fL (05/04/25 21:38:00) Monocyte Distribution Width: 19.63 (05/04/25 21:38:00) Neutrophil %: 61.8 % (05/04/25 21:38:00) Lymphocyte %: 28.8 % (05/04/25 21:38:00) Monocyte %: 7.4 % (05/04/25 21:38:00) Eosinophil %: 1.2 % (05/04/25 21:38:00) Basophil %: 0.8 % (05/04/25:38:00) Neutrophil, Absolute: 4.6 10^3/mcL (05/04/25 21:38:00) Lymphocyte, Absolute: 2.2 10^3/mcL (05/04/25 21:38:00) Monocyte, Absolute: 0.6 10^3/mcL (05/04/25 21:38:00) Eosinophil, Absolute: 0.1 10^3/mcL (05/04/25 21:38:00) Basophil, Absolute: 0.1 10^3/mcL (05/04/25 21:38:00) UA Specimen Type: Void (05/04/25:38:00) UA Color: Yellow (05/04/25 21:38:00) UA Appear: Clear (05/04/25 21:38:00) UA Spec Grav: 1.010 (05/04/25 21:38:00) UA Glucose: Negative. (05/04/25 21:38:00) UA Bili: Negative. (05/04/25 21:38:00) UA Ketones: Negative.1 (05/04/25:38:00) UA Blood: Negative. (05/04/25:38:) UA pH: 8.0 (05/04/25:38:00) UA Protein: Negative.1 (05/04/25:38:00) UA Urobilinogen: 0.2 (05/04/25:38:00) UA Nitrite: Negative. (05/04/25:38:00) UA Leuk Est: Negative. (05/04/25 21:38:00) UA RBC: 3-5 Abnormal (05/03/25 10:09:00) UA WBC: 25-50 Abnormal (05/03/25 10:09:00) UA Squam Epithelial: 0-2 (05/03/25 10:09:00) UA Amorphus: 2+ (05/03/25 10:09:00) UA Bacteria: 3+ Abnormal (05/03/25 10:09:00) Urine POC: Negative (05/05/25 00:44:00) Glucose Level: 91 mg/dL (05/04/25:38:00) Sodium Level: 142 mEq/L (05/04/25:38:00) Potassium Level: 4.2 mEq/L (05/04/25:38:00) Chloride: 109 mEq/L (05/04/25:38:00) CO2: 25 mEq/L (05/04/25:38:00) Electrolyte Balance: 8 mEq/L (05/04/25:38:00) BUN: <5.0 Low (05/04/25:38:00) Creatinine Lvl (s): 0.92 mg/dL (05/04/25:38:00) Estimated Glomerular Filtration Rate: 83 ml/min/1.73sqm (05/04/25:38:00) BUN/Creatinine Ratio: Unable to Calculate (05/04/25:38:00) Calcium Lvl: 9.2 mg/dL (05/04/25 21:38:00) Magnesium Lvl: 2.1 mg/dL (04/07/25 02:33:00) Total Protein: 5.9 G/dL (05/03/25 06:12:00) Albumin Level: 3.5 G/dL (05/03/25 06:12:00) Globulin: 2.4 G/dL Low (05/03/25 06:12:00) A/G Ratio: 1.5 ratio (05/03/25 06:12:00) Bili Total: 0.2 mg/dL (05/03/25 06:12:00) Alk Phos: 62 U/L (05/03/25 06:12:00) AST/SGOT: 22 U/L (05/03/25 06:12:00) ALT/SGPT: 10 U/L (05/03/25 06:12:00) Lactic Acid Lvl: 0.7 mmol/L (05/03/25 06:19:00) Culture Urine: Auth (Verified) POS Critical (05/03/25 11:08:00) Assessment/Plan Left flank pain. History of chronic nephrostomy tube after cervical cancer with radiation. Reportedly, the patient is supposed to have her nephrostomy tube changed. Clinically, she is quite stable with the exception of intense nausea. At risk of dehydration if inciting pathology is not addressed. Noted to have stones and hydroureter on CT. Pain control Nausea medication IV fluids Consult nephrology Okay for liquids. N.p.o. prior to the morning in case of procedure. Anxiety. Chronic. Continue medications. Asthma. Not currently exacerbation. Continue medications Medications were not verified by pharmacy at the time of this dictation. Reconciliation to be completed once medications are verified; will address additional chronic medical problems at that time. DVT prophylaxis: SCDs Note dictated using voice recognition software and may contain typographical errors. Problem List/Past Medical History Ongoing Acute kidney injury Anxiety Asthma Bilateral flank pain Cancer related pain Cervical cancer Decreased appetite Dehydration DVT prophylaxis History of chemotherapy History of radiation therapy Hx of cervical cancer Hydronephrosis, left Kidney stone Left flank pain Moderate protein-calorie malnutrition Nausea and vomiting Nephrostomy status Obstructive uropathy Palliative care encounter Premature menopause Pyelonephritis Historical Cervicitis Chronic kidney disease, stage 3 (moderate) Complicated UTI (urinary tract infection) Encounter for antineoplastic chemotherapy ESBL (extended spectrum beta-lactamase) producing bacteria infection ESBL (extended spectrum beta-lactamase) producing bacteria infection History of COVID-19 Hydronephrosis of left kidney Mass of cervix Port-A-Cath in place Tinnitus Procedure/Surgical History Exchange nephrostomy catheter, percutaneous, including diagnostic nephrostogram and/or ureterogram when performed, imaging guidance (eg, ultrasound and/or fluoroscopy) and all associated radiologicalsupervision and interpretation: 02/16/25 Removal of implantable venous access port: 12/22/24 Exchange nephrostomy catheter, percutaneous, including diagnostic nephrostogram and/or ureterogram when performed, imaging guidance (eg, ultrasound and/or fluoroscopy) and all associated radiologicalsupervision and interpretation: 12/22/24 Exchange nephrostomy catheter, percutaneous, including diagnostic nephrostogram and/or ureterogram when performed, imaging guidance (eg, ultrasound and/or fluoroscopy) and all associated radiologicalsupervision and interpretation: 10/13/24 Nephrostomy using fluoroscopic guidance: 06/16/24 JJ stent: 06/16/24 Nephrostomy tube: 10/05/23 Nephrostomy with tube drainage: 07/2023 Nephrostomy with tube drainage: 01/10/21 JJ stent: 11/15/20 Radiation: 06/2020 Implantable venous access port: 04/2020 Cervical biopsy: 2019 Tumor cells, benign: 2001 Medications Home Medications (5) Active Ativan 1 mg oral tablet 1 mg = 1 tab(s), PRN, Oral, TID Lexapro 20 mg oral tablet 20 mg = 1 tab(s), Oral, qDay ondansetron 4 mg oral tablet 4 mg = 1 tab(s), Oral, BID oxyCODONE 5 mg oral tablet ( IMMEDIATE release ) 10 mg = 2 tab(s), PRN, Oral, q6h Tylenol Extra Strength 500 mg oral tablet 1,000 mg = 2 tab(s), PRN, Oral, q4h Allergies Haldol Tongue swelling Oranges Tongue swelling, Difficulty breathing penicillin Hives Social History Alcohol - Denies Alcohol Use, 06/13/2020 Use: Past. Type: Beer. Frequency: 1-2 times per week., 07/21/2023 Employment/School Status: Employed., 02/04/2024 Home/Environment - No Risk, 06/13/2020 Living situation: Home/Independent. Safe place to go: Yes. Financial concerns: No. Domestic Concerns: None. Lives In: Mobile home. Current Home Treatments None. Professional Skilled Services or Special Community Resources None. Marital Status: Unmarried., 12/16/2024 Nutrition/Health - No Risk, 06/13/2020 Type of diet: Regular. Appetite Poor. Eating Difficulties None., 08/06/2024 Sexual Sexually active: Yes. First active at age: 18 Years. Current partners: 1. Number of lifetime partners: 7. Self described orientation: Straight or heterosexual. Other contraceptive use: condoms. History of sexual abuse: No. Gender Identity: Identifies as female., 04/12/2020 Substance Abuse - Denies Substance Abuse, 06/13/2020 Use: Current. Type: Marijuana. Frequency: 1-2 times per month., 02/16/2025 Tobacco Nicotine Use: 5-9 cigarettes (between 1/4 to 1/2 pack)/day in last 30 days, Vaping Product in Last 90 Days. Type: Cigarettes. Tobacco use per day: 5. Started at age: 19 Years. Stopped at age: 32 Years. Smokeless Tobacco Use: Never. Exposure to Tobacco Smoke Lives in non-smoking home., 02/16/2025 Family History Alcohol abuse: Father. Asthma: Mother. Bladder cancer: Negative: Mother, Father, Sister, Brother, Daughter, Son and Grandparent. Breast cancer: Mother. COPD - Chronic obstructive pulmonary disease: Mother and Father. Cancer: Sister. Diabetes: Grandparent. Heart attack: Mother. Heart disease: Mother. Hypertension: Mother. Kidney stone: Mother. Malignant tumor of ovary: Sister. Renal cancer: Negative: Mother, Father, Sister, Brother, Daughter, Son and Grandparent. Renal disease: Negative: Mother, Father, Sister, Brother, Daughter, Son and Grandparent. Renal stone: Mother.Negative: Father, Sister, Brother, Daughter, Son and Grandparent. Stroke: Father and Grandparent. Substance abuse: Father. Health Status Family Member(s) Immunizations hepatitis B pediatric vaccine: 0 unknown unit (06/16/01) hepatitis B pediatric vaccine: 0 unknown unit (06/21/98) measles/mumps/rubella virus vaccine: 0 unknown unit (06/16/01) Code Status No qualifying data available. Digitally Signed by RHIANNON ARTEAGA MD on 05/05/2025 01:11 AM [id number] Discharge instructions Patient Education 05/03/2025 12:19:03 Percutaneous Nephrostomy Percutaneous Nephrostomy Percutaneous nephrostomy is a procedure where a small tube (catheter) is put through your skin intoyour kidney to drain your urine. This procedure is done by a specially trained doctor called an interventional radiologist. Why percutaneous nephrostomy is done Percutaneous nephrostomy may be needed when a kidney or a tube (ureter) leading from a kidney to your bladder gets blocked. This can happen because of kidney stones, tumors, or another cause. The blockage can cause a backup of urine in the kidney. This procedure is done to stop pain, infection, andkidney damage. Risks of percutaneous nephrostomy All procedures have some risks. Possible risks of this procedure include: Bleeding of your kidney Blockage of the catheter Blood infection (sepsis) Kidney infection Problems because of the X-ray dye (contrast medium). These include allergic reaction or kidney damage. Skin infection around the catheter site The catheter may need to be replaced if it is used for a long time. The same procedure is used. Urine leak X-ray radiation exposure, which is considered to be low level and safe Getting ready for your procedure Tell your healthcare provider if you: Are allergic to X-ray dye or other medicines Are Are or think you may be Tell your healthcare provider about any recent illnesses, all medical conditions, and all medicinesyou take. You may need to stop taking some or all of them before your procedure. This includes: All prescription medicines Any street drugs you may use Herbs, vitamins, and other supplements [id number] medicines that don t need a prescription, including aspirin and ibuprofen Also be sure to: Follow any directions you re given for not eating or drinking before your procedure. Follow any other instructions from your healthcare provider. Plan to have a relative or friend drive you home after your procedure. You can t drive yourself. During your procedure You will change into a hospital gown. An IV line is put into your hand or arm to give you fluids and medicines. You will then lie on yourstomach on an X-ray table. You may be given medicine to help you relax and make you feel sleepy. The skin on your lower back is numbed with an injection of local anesthesia. The radiologist will use CT scan, ultrasound, fluoroscopy, or X-ray images as a guide. He or she will insert a needle through your lower back into your kidney. X-ray dye may be injected through this needle into your kidney. This fluid makes your kidney easier to see on X-ray images. The X-ray images can show exactly where your kidney or ureter is blocked. The needle is then replaced with a thin tube called a drainage catheter. The catheter is attached to a drainage bag. This bag collects the urine that drains from your kidney. The catheter may be stitched (sutured) or taped to your skin. This helps keep it in place and stop it from moving. The entire procedure takes about 1 to 2 hours. After your procedure The catheter will stay in place until the problem that caused the urine buildup is treated. This may be for as little as a day or as long as a few weeks or months. The bag is secured to your leg so you can walk around. During the time the catheter is in place you should: Keep the skin around the catheter clean and dry. Be careful not to move or knock the catheter out of place. Make sure that the drainage bag is secured firmly to your leg. Empty the drainage bag often. This keeps the weight of the bag from pulling on the catheter. When to call your healthcare provider Call your healthcare provider if your urine becomes cloudy or smells bad, or if you develop fever or chills. [phone] [employer]. [address] [place] [address]. All rights reserved. This information is not intended as a substitute for professional medical care. Always follow yourhealthcare professional's instructions. Follow Up Care 05/03/2025 04:50:47 With:Call our interventional radiology department to schedule an outpatient nephrostomy exchange if you desire. Address:Unknown When:2-4 days With:You may follow-up with [facility] for nephrostomy exchange since that is where you told our urology practice that is where you will seek urolog care Address:Unknown When:2-4 days With:OLE PACE MD Address: [address] [place] [phone] When:2-4 days [facility] 07-01-2025 Emergency department Discharge summary Discharge Instructions Thank you for allowing [facility] to assist you with your healthcare needs. The following is importantdischarge information regarding your hospital visit. Diagnosis from Today's Visit Left flank pain What to Do Next Instructions from Your Care Team You are stable to discharge home. You would previously told our urology group that you would follow-up with [facility] in the future for urologic care. He may follow-up with [facility] orcall our interventional radiology department to schedule outpatient nephrostomy tube exchange. Return to emergency department for any medical emergencies or any of the signs and symptoms we discussed. No qualifying data available. Post Acute Orders No qualifying data available. You Need to Schedule the Following Appointments Follow Up with Call our interventional radiology department to schedule an outpatient nephrostomy exchange if you desire. When:Within 2-4 days Follow Up with You may follow-up with [facility] for nephrostomy exchange since that is whereyou told our urology practice that is where you will seek urolog care When:Within 2-4 days Follow Up with OLE PACE MD When:Within 2-4 days Where:[address] [place] [address] [place] [phone]- [phone] Allergies Haldol Tongue swelling Oranges Tongue swelling, [...] tab(s) by mouth Once a day Unchanged LORazepam (Ativan 1 mg oral tablet) 1 tab(s) by mouth Three (3) times a day as needed for as needed for anxiety Palliative care patient THO (generalized anxiety disorder) Unchanged ondansetron (ondansetron 4 mg oral tablet) 1 tab(s) by mouth Two (2) times a day Unchanged oxyCODONE (oxyCODONE 5 mg oral tablet [...] medication providers or retail pharmacies. Education Materials Percutaneous Nephrostomy Percutaneous nephrostomy is a procedure where a small tube (catheter) is put through your skin intoyour kidney to drain your urine. This procedure is done by a specially trained doctor called an interventional radiologist. Why percutaneous nephrostomy is done Percutaneous nephrostomy may be needed when a kidney or a tube (ureter) leading from a kidney to your bladder gets blocked. This can happen because of kidney stones, tumors, or another cause. The blockage can cause a backup of urine in the kidney. This procedure is done to stop pain, infection, andkidney damage. Risks of percutaneous nephrostomy All procedures have some risks. Possible risks of this procedure include: Bleeding of your kidney Blockage of the catheter Blood infection (sepsis) Kidney infection Problems because of the X-ray dye (contrast medium). These include allergic reaction or kidney damage. Skin infection around the catheter site The catheter may need to be replaced if it is used for a long time. The same procedure is used. Urine leak X-ray radiation exposure, which is considered to be low level and safe Getting ready for your procedure Tell your healthcare provider if you: Are allergic to X-ray dye or other medicines Are Are or think you may be Tell your healthcare provider about any recent illnesses, all medical conditions, and all medicinesyou take. You may need to stop taking some or all of them before your procedure. This includes: All prescription medicines Any street drugs you may use Herbs, vitamins, and other supplements Hrcv-omu-cnxvwsj medicines that don t need a prescription, including aspirin and ibuprofen Also be sure to: Follow any directions you re given for not eating or drinking before your procedure. Follow any other instructions from your healthcare provider. Plan to have a relative or friend drive you home after your procedure. You can t drive yourself. During your procedure You will change into a hospital gown. An IV line is put into your hand or arm to give you fluids and medicines. You will then lie on yourstomach on an X-ray table. You may be given medicine to help you relax and make you feel sleepy. The skin on your lower back is numbed with an injection of local anesthesia. The radiologist will use CT scan, ultrasound, fluoroscopy, or X-ray images as a guide. He or she will insert a needle through your lower back into your kidney. X-ray dye may be injected through this needle into your kidney. This fluid makes your kidney easier to see on X-ray images. The X-ray images can show exactly where your kidney or ureter is blocked. The needle is then replaced with a thin tube called a drainage catheter. The catheter is attached to a drainage bag. This bag collects the urine that drains from your kidney. The catheter may be stitched (sutured) or taped to your skin. This helps keep it in place and stop it from moving. The entire procedure takes about 1 to 2 hours. After your procedure The catheter will stay in place until the problem that caused the urine buildup is treated. This may be for as little as a day or as long as a few weeks or months. The bag is secured to your leg so you can walk around. During the time the catheter is in place you should: Keep the skin around the catheter clean and dry. Be careful not to move or knock the catheter out of place. Make sure that the drainage bag is secured firmly to your leg. Empty the drainage bag often. This keeps the weight of the bag from pulling on the catheter. When to call your healthcare provider Call your healthcare provider if your urine becomes cloudy or smells bad, or if you develop fever or chills. [phone] [employer]. [address] [place] [address]. All rights reserved. This information is not intended as a substitute for professional medical care. Always follow yourhealthcare professional's instructions. Additional Information VACCINATE! IT SAVES LIVES! Members of the community who have not yet received the COVID-19 vaccine and would like to receive it can visit one of [facility] vaccine clinics. There are many vaccine clinic locations within the [facility]. For locations and available times, please visit www.gettheshot.coronavirus.[place].gov/. It is important to note that some COVID mobile vaccine clinics are held outdoors and may be canceled in rainy or stormy conditions. To learn more about pediatric vaccinations (ages 5-11), we invite you to visit the [facility] webpage. https://www.[facility].org/pages/6271-Qlnvf-Usfighieuwa-Rpnawdsxtc-Pvcgj-Lkg stions.htmlTo learn more about the COVID-19 vaccine, we invite you to visit the CDC website for a list of frequently asked questions. https://www.cdc.gov/coronavirus/2019-ncov/vaccines/faq.html [facility] Patient Portal Access Instructions: Stay connected with your healthcare team and access your personal medical information anytime with the [facility] Patient Portal. If you would like a full copy of your medical records please contact the [facility] Medical Records Department Friday through Friday between 8a.m. and 4:30p.m. Please follow the directions below to access the portal: 1.Access the email account you provided upon registration to the [facility].2.Look for an invitation email from [facility].3.Open the email and access the invitation link: Accept Invitation to [facility]4.Fill in the required quintero to create your account. Sign into www.[employer] with your username and password that you [...] you will allow to register on the [facility] Patient Portal for access to your information. You can also access the [facility] Patient Portal on the [employer] joya. Simply click on Health Records under [employer] and then click on the [employer] logo. HOW TO SAFELY DISPOSE OF PRESCRIPTION [...] Call your local pharmacy or go to http://bit.ly/5F5Qc9v to find one close to you.3.Make use of household items: Use cat litter or old coffee grounds to dispose medications if other options arenot available. Mix your drugs with these household products, seal them in an airtight container andthrow it into the garbage. Call [facility]: [phone] to be sure your drugs can be [...] a CHART COPY Signatures Patient Education Materials Percutaneous Nephrostomy Medication Leaflets My discharge plan and instructions have been reviewed and explained to me and IANTONELLA RACHAEL L understand my current condition and have read and understand these discharge instructions. I have received a written copy of the plan/instructions. If I have questions, I am aware that I should contact my doctor. Patient/[employer] Signature: Date/Time: Relationship to Patient: Witness Name/Signature: [facility]Time[id number] Note* Exam Date Time Procedure Performing Provider Status 05/03/25 10:[address] Abdomen/Pelvis w/o Contrast KELLEYCLOTILDE Jiménez MD; Auth (Verified) [id number] ORIGINAL EXAMINATION: CT OF THE ABDOMEN AND PELVIS WITHOUT CONTRAST05/03/2025 10:59 am TECHNIQUE: CT of the abdomen and pelvis was performed without the administration of intravenous contrast. Multiplanar reformatted images are provided for review. Automated exposure control, iterative reconstruction, and/or weight based adjustment of the mA/kV was utilized to reduce the radiation dose to as low as reasonably achievable. COMPARISON: 04/04/2025 HISTORY: ORDERING SYSTEM PROVIDED HISTORY: Reason for Exam: PT C/O LEFT FLANK PAIN STATES SHE HAD CT W/IV CONTRAST AT 4AM TODAY IN [place] NEPHROSTOMY LEFT SINCE 2019 CERVICAL CA W/ METS TO KIDNEY CHEMO AND RADIATION RENAL FAILURE PAIN nephrostomy, didn't get exchanged weeks ago, flank pain now FINDINGS: No acute fracture or aggressive osseous lesion. Minimal scattered areas of atelectasis at the right lung base. There is no visible pleural or pericardial effusion. The heart is normal in size. The un-enhanced liver, spleen, adrenal glands, and pancreas are within normal limits. The gallbladder is normal. Minor left renal atrophy is present and there are focal areas of scarring at the left kidney, with underlying clubbed calices. This is compatible with an element of reflux nephropathy. There is excreted contrast within bilateral kidneys, ureters, and bladder, which limits evaluation for nephroureterolithiasis. There are multiple punctate calcifications in the distal left ureter measuring up to approximately 3 mm, these appear similar to prior exam. Percutaneous left nephrostomy tube in stable position. I suspect minimal extra caliceal contrast at the region of the left renal sinus which may be related to the presence of the tube. There is mild left hydroureter similar to prior exam. The urinary bladder is grossly normal. The large and small bowel are unremarkable. The appendix is normal. No free intraperitoneal fluid or gas is identified. The aorta is normal in caliber. There is no lymphadenopathy. IMPRESSION: 1. Excreted IV contrast from prior CT today limits evaluation of renal and ureteral stones. 2. Multiple left-sided distal ureteral stones measuring up to 3 mm. 3. Mild left hydroureter similar to prior exam. 4. Left-sided reflux nephropathy, stable. I have personally reviewed the images of this examination and agree with the resident's findings and interpretation. Interpreted by: Clotilde Benson MD Preliminary Report By: Gonzalez Méndez MD Electronically signed By Clotilde Benson MD Dictated Date: 05/03/2025 11:06:57 AM Prelim Date: 05/03/2025 11:34:06 AM Sign Date: 05/03/2025 11:34:06 AM Ordering Provider: CLOTILDE VILLA Interpreted by: Clotilde Benson MD Preliminary Report By: Gonzalez Méndez MD Electronically signed By Clotilde Benson MD Dictated Date: 05/03/2025 11:06:57 AM Prelim Date: 05/03/2025 11:34:06 AM Sign Date: 05/03/2025 11:34:06 AM Ordering Provider: CLOTILDE VILLA [id number] Discharge summary [facility] Medical Records Department [address] [place] [id number] Emergency Department Summary 04/09/25 MR#: [id number] Acct: [id number] Name: LALY NAVAS Rep #:[id number] : 1990 34 From: Jatin Garcia MD PCP: OLE PACE Status:REG ER Location: ED HPI History of Present Illness Chief Complaint: Flank Pain Informant: patient Narrative Narrative: 34-year-old female states she is having pain in her left flank, less on her backmore in her side inher left lower quadrant, that she has been having for the past 2 weeks consistent with a kidney stone that has been known and followed, and she is here for pain control. She is in pain management, taking oxycodone twice a day which she has been doing but the pain is [id number] and she is feeling very nauseated and does not want to waste her pain management prescription by vomiting it up. She denies any fevers or chills. No dysuria orhematuria. She has been on antibiotics for several weeks, currently on Bactrim,and states that she was admitted to [facility] where her oncologist and urologist are, she was there yesterday and then discharged today because she states her urologist who had admitted her, decided to drop her as a patient. The patient states this was because she missed a renal scan that she was unaware of. She states that the urologist was preparing to remove the kidney stone because of pain reasons. 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 She has known about those issues for years. [facility] Medical History Nephrostomy present Kidney failure Kidney stone Cervical cancer Home Medications ?Medication ?Instructions ?Recorded ?Last Taken ?Type escitalopram oxalate 20 mg tablet 20 mg PO DAILY 04/09 Unknown History (Lexapro) lorazepam 1 mg tablet (Ativan) 1 mg PO Q8H PRN anxiety 04/09/25 Unknown History ondansetron HCl 4 mg tablet 4 mg PO Q6H PRN nausea and vomiting 04/09/25 Unknown History oxycodone 5 mg tablet 10 mg PO Q6H PRN pain Unknown History sulfamethoxazole 800 1 tab PO BID 04/09/25 Unknow n History mg-trimethoprim 160 mg tablet (Bactrim DS) Allergy/AdvReac Type Severity Reaction Status Date / Time haloperidol (From Haldol) Allergy Angioedema Verified 04/09/25 00:21 Penicillins (PCN) Allergy Hives Verified 04/09/25 00:21 Social History Smoking Status: Current every day smoker tobacco type: cigarettes and e-cigarettes ROS ROS ED Constitutional Constitutional ED: Denies chills or fever(s) Eyes Eyes: Denies change in vision or diplopia ENT ENT ED: Denies rhinorrhea or sore throat Cardiovascular Cardiovascular: Denies chest pain or palpitations Respiratory/Chest Respiratory/Chest: Denies cough or dyspnea Gastrointestinal Gastrointestinal: Reports abdominal pain; Denies diarrhea, nausea or vomiting Genitourinary Genitourinary ED: Reports flank pain; Denies dysuria or hematuria Musculoskeletal Musculoskeletal: Denies back pain or neck pain Integumentary Denies abscess or rash Neurologic Neurologic: Denies headache(s), paresthesias or weakness Psychiatric Psychiatric: Denies anxiety or suicidal thoughts EXAM Physical Exam Const Vital Signs: 04/09/25 00:20 04/09/25 01:20 04/09/25 02:00 Temperature 98.6 F Temperature Source Oral Pulse Rate 103 H 89 69 Respiratory Rate 18 16 16 Blood Pressure 115/79 118/71 107/77 Blood Pressure Mean 91 86 87 Pulse Ox 99 98 99 Oxygen Delivery Method Room Air Room Air Positive well nourished and well developed Constitutional Narrative: Very well-appearing in no distress, ambulatory without limitation General Appearance ED: well developed and NAD HEENT Reports moist mucous membranes normocephalic and atraumatic Eyes PERRL and EOMs intact bilaterally Neck full ROM and supple Resp normal respiratory effort and clear to auscultation bilaterally Cardio regular rate, regular rhythm and no murmurs GI non-distended GI Narrative: Tender left lower quadrant no guarding or rebound. Auscultation: normoactive bowel sounds Palpation: soft Back/Spine no CVA tenderness Back/Spine Narrative: Left nephrostomy in place, no active discharge or signs of infection or tenderness. General Back: other FROM Extremity normal to inspection General Extremety ED: Negative for edema, pulses abnormal or tenderness General Extremity: Negative for edema or pulses abnormal Neuro oriented x3, CN's II-XII intact bilaterally and no sensory deficits noted Sensorium / Orientation: awake and alert Motor Exam: strength 5/5 throughout Psych mental status grossly normal Skin no rashes or lesions noted and no wounds MDM MDM MDM Narrative Medical decision making narrative: Labs and urinalysis are normal. No indication of infection. In the meantime she was given a dose ofmorphine and Zofran for her symptoms. She said it did not help and that her abdomen is hurting worse although she appears well and is not tachycardic with a heart rate of 69 and a blood pressure 107/77. Given the timing of all of this I certainly do not think she needs to be admitted for any acute reason. She is here at 1-3 a.m., and although I think reasonable to referher to urology, I do not think she needs to see them emergently right now. She is in agreement and is gracious about more pain control and referral. Lab Data Attestation: I reviewed the patient's lab results. Labs: Laboratory Results - last 24 hr 04/09/25 04/09/25 00:38 01:02 WBC 8.7 RBC 3.81 L Hgb 12.3 Hct 36.4 L MCV 95.5 MCH 32.3 H MCHC 33.8 RDW Std Deviation 51.2 H RDW Coeff of Bereket 14.6 Plt Count 297 MPV 9.4 Immature Gran % (Auto) 0.300 Neut % (Auto) 54.6 Lymph % (Auto) 32.0 Moca % (Auto) 8.9 Eos % (Auto) 3.2 Baso % (Auto) 1.0 Absolute Neuts (auto) 4.7 Absolute Lymphs (auto) 2.78 Nucleated RBC % 0 Sodium 140 Potassium 3.4 Chloride 106 Carbon Dioxide 19.8 L Anion Gap 14 BUN 9 Creatinine 0.96 Estim Creat Clear Calc 72.90 Est GFR (MDRD) Non-Af 79 BUN/Creatinine Ratio 9.0 L Glucose 120 H Calcium 9.1 Urine Color Straw Urine Clarity Clear Urine pH 6.0 Ur Specific [place] 1.010 Urine Protein Negative Urine Glucose (UA) Normal Urine Ketones Negative Urine Occult Blood Negative Urine Nitrite Negative Urine Bilirubin Negative Urine Urobilinogen Normal Ur Leukocyte Esterase Negative Urine RBC 0 SEEN Urine WBC 0-5 SEEN Ur Squamous Epith Cells 0-5 SEEN Urine Bacteria 0 SEEN Urine Mucus 0 SEEN Discharge Plan Triage Chief Complaint: Flank Pain ED Provider: Jatin Garcia Dx/Rx/DC Orders Clinical Impression: Acute left flank pain, Ureteral obstruction, left, Nephrostomy status Instructions: ED Kidney Stone with Pain Prescriptions: No Action oxycodone 5 mg tablet 10 mg PO Q6H PRN (Reason: pain) lorazepam [Ativan] 1 mg tablet 1 mg PO Q8H PRN (Reason: anxiety) escitalopram oxalate [Lexapro] 20 mg tablet 20 mg PO DAILY ondansetron HCl 4 mg tablet 4 mg PO Q6H PRN (Reason: nausea and vomiting) sulfamethoxazole-trimethoprim [Bactrim DS] 800-160 mg tablet 1 tab PO BID Primary Care Provider: OLE PACE Referrals: Yoseph Botello MD [Med Staff - Active Staff] - Print Language: Mongolian Disposition Disposition: Home, Self Care What to do if you have Problems For any increased pain, shortness of breath, bleeding, nausea or vomiting, chestpain, or any unexpected problems, contact your Primary Care Provider. Call [facility] ([phone]) or report tothe closest Emergency Room. Call 911 if necessary. 04/09/25 0244 Cosigner Signature (if applicable): CC: OLE PACE ~ Signed [facility]06-05-2025 Discharge summary Date of Service 04/07/25 Discharge Diagnosis Left ureteral stone Status post left nephrostomy Left flank pain History of cervical cancer Anxiety and depression Hospital Course 34-year-old female with a past medical history consistent with cervical cancer in remission, known left ureteral stones status post left nephrostomy tube the presents the chief complaint of left-sided abdominal pain. Of note, patient was recently seen at for urologic intervention on stones but she left AMA before she received care. Returns on the advice of urology. Patient to be admitted for urologic intervention on 3cm stone. Her chronic medication was continued, oars reviewed. She was admitted and evaluated by urology for surgical intervention on the same stone but did ultimately leave again against medical advice. Allergies Haldol Tongue swelling Oranges Tongue swelling, Difficulty breathing penicillin Hives Consults Consult to Physician - Ordered -- 04/07/25 1:15:00 EDT, GONZALEZ SANDERS MD, Routine, Obstructive uropathy, hx of stones, current nephrostomy Imaging Results and Diagnostics US Renal Result Date: April 06, 2025 Verified By: SCOOBY JOSE MD CLINICAL STATEMENT: IMPRESSION: Redemonstrated left percutaneous nephrostomy tube. Mild leftpelvicaliectasis. XR Abdomen AP Result Date: April 06, 2025 Verified By: TRICIA ADAMSON DO CLINICAL STATEMENT: IMPRESSION: Stable positioning of left nephrostomy tube. Couple tiny calcificationswithin the left pelvis likely represent left distal ureteral calculi seen onprior CT. I have personally reviewed theimages of this examination and agree with theresident's findings and interpretation. Physical Exam Vitals and Measurements T: 36.6 C (Oral) TMIN: 36.5 C (Oral) TMAX: 36.7 C (Oral) HR: 67 RR: 20 BP: 143/94 SpO2: 96% HT: 165.1 cm WT: 51.8 kg BMI: 19 Weight Dosing Weight: 51.8 kg (04/07/25) Dosing Weight: 51.8 kg (04/06/25) Code Status No qualifying data available. Admission Date 04/06/25 Discharge Date 04/07/25 LEFT AGAINST MEDICAL ADVICE Medications Unchanged acetaminophen (Tylenol Extra Strength 500 mg oral tablet)2 tab(s) by mouth every 4 hours as needed as needed for pain. escitalopram (Lexapro 20 mg oral tablet)1 tab(s) by mouth once a day. Refills: 5. LORazepam (Ativan 1 mg oral tablet)1 tab(s) by mouth three (3) times a day as needed as needed for anxiety. Refills: 2. ondansetron (ondansetron 4 mg oral tablet)1 tab(s) by mouth two (2) times a day. TAKE ONE TABLET BYMOUTH EVERY 8 HOURS NEEDED FOR NAUSEA AND VOMITING. Refills: 2. oxyCODONE (oxyCODONE 5 mg oral tablet ( IMMEDIATE release ))2 tab(s) by mouth every 6 hours as needed for pain. may dispense 03/11/25. Refills: 0. Follow Up Follow Up with OLE PACE MD When:Within 2-4 days Where:[address] [place] [phone] Follow Up Appointments No qualifying data available. Follow Up Labs/Studies Discharge Labs No Follow-up Labs Discharge Studies No Follow-up Studies Discharge Diet No qualifying data available. Discharge Activity No qualifying data available. Condition on Discharge LEFT AGAINST MEDICAL ADVICE Discharge Disposition LEFT AGAINST MEDICAL ADVICE Information Provided To LEFT AGAINST MEDICAL ADVICE Time Spent 40min Digitally Signed by FRED CARBAJAL MD on 04/07/2025 05:39 PM [id number] Urology Progress note Date of Service 04/07/2025 I went to the patient's room to discuss her situation along with my nurse practitioner, Amberly Haque. I told the patient that I am no longer comfortable doing her surgery since she was threatening me and making demands. The patient stated that [facility] has been neglecting her care. The patient then proceeded to remove her IV. The patient stated that she will be going to see [facility] at the [facility]. On multiple occasions the patient stated that she will be suing me for neglect of care. I reassured her that I did not neglect her care and that I have made an effort to do her surgery but she left the hospital against medical advice. This morning, I offered to do her surgery today but she refused and asked me to do it tomorrow instead. Pt has ureteral calculi but she is not obstructed. It is not an emergent surgery. She has a working nephrostomy. Surgery is elective andthe ureteral calculi are not likely the source of her pain. The patient continued to make multiple litiginous comments and was very angry and threatening. I do feel very threatened by both her and her boyfriend. Pt states she is leaving the hospital. I told the patient that I will help her, in any way that I can, to find another urologist to assume her care. Digitally Signed by GONZALEZ SANDERS MD on 04/07/2025 01:05 PM [id number] Note Reason for Consultation Admission From: Home No qualifying data available. Skin Team Findings Vitals and Measurements T: 36.6 C (Oral) TMIN: 36.5 C (Oral) TMAX: 36.8 C (Oral) HR: 67 RR: 20 BP: 143/94 SpO2: 96% HT: 165.1 cm WT: 51.8 kg BMI: 19 Pressure Area Details No pressure injuries. Patient has an established nephrostomy. Orders placed in to [facility]. Assessments and Recommendations ------Assessments------ Current Skin/Wound Interventions: Hospital bed, Turn and reposition every 2 hours ------Recommendations------ Recommended Skin/Wound Interventions: Turn and reposition every 2 hours Education No qualifying data available. Problem List/Past Medical History Ongoing Acute kidney injury Anxiety Asthma Bilateral flank pain Cancer related pain Cervical cancer Decreased appetite Dehydration DVT prophylaxis History of chemotherapy History of radiation therapy Hx of cervical cancer Hydronephrosis, left Kidney stone Left flank pain Moderate protein-calorie malnutrition Nausea and vomiting Nephrostomy status Obstructive uropathy Palliative care encounter Premature menopause Pyelonephritis Historical Cervicitis Chronic kidney disease, stage 3 (moderate) Complicated UTI (urinary tract infection) Encounter for antineoplastic chemotherapy ESBL (extended spectrum beta-lactamase) producing bacteria infection ESBL (extended spectrum beta-lactamase) producing bacteria infection History of COVID-19 Hydronephrosis of left kidney Mass of cervix Port-A-Cath in place Tinnitus Digitally Signed by Paola Chiang RN on 04/07/2025 11:27 AM [id number] Urology Consult note Date of Service 04/07/2025 Reason for Consultation left flank pain. History of Present Illness (Dr. Sanders) 34 yo female with cervical cancer. pt with 3 cm stone in left kidney and recurrent infections. cervical cancer is in remission but originally kidney was blocked from the cancer. pt with chronic pain. left flank and left abdomen pain. pt with left nephrostomy - pt does make a lot of urine from kidney. pt was told she has [address] scan but ct scan in november does not show 3 cm stone. pt with recurrent pyelonephritis. pt was told she is high risk for surgery and was turned down for surgery. 03/30/2025 (Dr. Sanders) pt was in ER with kidney infection. pt with pain in left flank pain. pt not comfortable. pt was on bactrim and then given a different antibiotic. 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 I do not see any stone on either ct scan. pt with recurrent infections. pt withgood urine output. pt did not do diuretic renal scan. pt had attempted internalization of stent that was unsuccessful. pt getting neph tube changes every 8 weeks now. 04/07/2025 (Dr. Sanders) pt is a 34 yo female who has been consistently noncompliant. Pt initially saw me because she wants her left kidney removed. Pt was told by two other institutions that they would not remove her kidney. Pt was insisting that she had a 3 cm left kidney stone. I recommended a ct scan and renal scan. Ptpresented to ER after her visit with me and demanded a ct scan. pt also went to ER on 03/15. pt was a dmitted to the hospital on 04/04 after catching her nephrostomy on a car door. pt returned to ER on 04/06. Pt was found to have some ureteral calculi but nephrostomy has been functioning well. Pt will eventually need an ileal ureter or a ureterolysis but these surgeries can have lots of complications. This was explained to the patient. I was planning on doing a ureteroscopy but then pt left the hospital against medical advice. Pt returned to ER last night. Pt claims that she left ama because she was npo for too long. she felt like she was neglected. I told the patient that I can do surgery on theureteral calculi today but I am not sure if that will result in an alleviation of her pain since she has a nephrostomy. Pt was argumentative that she does not want to be npo all day until surgery gets done and she said she wants to stay until Friday and be fed today and receive pain meds and then have the surgery tomorrow. I told her I will give her a diet and then put her on the OR schedule for tomorrow. I told the patient that if she leaves the hospital against medical advice again, we may need to discharge her from our practice and have her follow up at the [facility]. I strongly advised that she should remain compliant with our recommendations. Apparently, her boyfriend then called the office and raised his voice at my nurse and the patient called the custom protection officer and said shewants me to do her surgery and then immediately seek care elsewhere. Review of Systems Patient denies fever, chills, sweats, nausea or vomiting at this time. Pt denies headaches, visual disturbances, neck pain. Pt denies shortness of breath or dyspnea. Pt denies chest pain, palpitations. Pt denies abdominal pain, or flank pain. Pt denies lower extremity swelling or gait disturbances at this time. Physical Exam Vitals and Measurements T: 36.6 C (Oral) TMIN: 36.5 C (Oral) TMAX: 36.8 C (Oral) HR: 67 RR: 20 BP: 143/94 SpO2: 96% HT: 165.1 cm WT: 51.8 kg BMI: 19 Weight Dosing Weight: 51.8 kg (04/07/25) Dosing Weight: 51.8 kg (04/06/25) Pt appears normal in appearance. No acute distress. Breathing non-labored lungs cta bilaterally CVA - RRR abd soft, nt, nd, no palpable masses, no renal tenderness, no suprapubic tenderness genitalia normal extremities without edema Lab Results 04/07 02:33 WBC: 6.4 Hgb: 13.2 Hct: 38.2 Platelet: 335 Neutrophil %: 53.8 Glucose Level: 101 Sodium Level: 143 Potassium Level: 3.6 BUN: 9.0 Creatinine Lvl (s): 0.88 04/06 15:11 WBC: 9.9 Hgb: 13.7 Hct: 40.7 Platelet: 329 Neutrophil %: 68.8 Glucose Level: 84 Sodium Level: 140 Potassium Level: 4.4 BUN: 10.0 Creatinine Lvl (s): 0.95 Imaging Results and Diagnostics (04/06/2025 15:46 EDT XR Abdomen AP) IMPRESSION: Stable positioning of left nephrostomy tube. Couple tiny calcifications within the left pelvis likely represent left distal ureteral calculi seen on prior CT. [1] (04/06/2025 16:45 EDT US Renal) IMPRESSION: Redemonstrated left percutaneous nephrostomy tube. Mild left pelvicaliectasis. [2] (04/04/2025 15:[address] Abdomen/Pelvis w/o Contrast) IMPRESSION: 1. Multiple left-sided ureteral stones in the middle and distal ureter measuring up to 3 mm. 2. Mild left hydroureter similar prior. 3. Similar position of left nephrostomy tube. [3] (03/09/2025 15:[address] Renal) IMPRESSION: Left renal collecting system and proximal ureteral wall thickening and enhancement with mild surrounding haziness, which could be chronic although correlate with urinalysis if concern for underlying infection. Similar appearing left pelvicaliectasis with percutaneous nephrostomy tube in place. [4] Assessment/Plan THO (generalized anxiety disorder) Palliative care patient Orders: Diet Order, 04/07/25 7:24:00 EDT, Regular Diet, Constant Order, : No, per patient, : No NPO after Midnight, 04/07/25 23:58:00 EDT, Constant Order Chronic hydronephrosis with obstructed ureter from patients prior cancer and scarring. Ureteral calculi Functioning left nephrostomy My plan was to do surgery but after patient has made threats to me, I am no longer comfortable in taking care of her stone surgery. This is not emergent as she does have a chronic nephrostomy. I willreturn to discuss management with the patient later today along with my nurse practitioner. Problem List/Past Medical History Ongoing Acute kidney injury Anxiety Asthma Bilateral flank pain Cancer related pain Cervical cancer Decreased appetite Dehydration DVT prophylaxis History of chemotherapy History of radiation therapy Hx of cervical cancer Hydronephrosis, left Kidney stone Left flank pain Moderate protein-calorie malnutrition Nausea and vomiting Nephrostomy status Obstructive uropathy Palliative care encounter Premature menopause Pyelonephritis Historical Cervicitis Chronic kidney disease, stage 3 (moderate) Complicated UTI (urinary tract infection) Encounter for antineoplastic chemotherapy ESBL (extended spectrum beta-lactamase) producing bacteria infection ESBL (extended spectrum beta-lactamase) producing bacteria infection History of COVID-19 Hydronephrosis of left kidney Mass of cervix Port-A-Cath in place Tinnitus Procedure/Surgical History Exchange nephrostomy catheter, percutaneous, including diagnostic nephrostogram and/or ureterogram when performed, imaging guidance (eg, ultrasound and/or fluoroscopy) and all associated radiologicalsupervision and interpretation: 02/16/25 Removal of implantable venous access port: 12/22/24 Exchange nephrostomy catheter, percutaneous, including diagnostic nephrostogram and/or ureterogram when performed, imaging guidance (eg, ultrasound and/or fluoroscopy) and all associated radiologicalsupervision and interpretation: 12/22/24 Exchange nephrostomy catheter, percutaneous, including diagnostic nephrostogram and/or ureterogram when performed, imaging guidance (eg, ultrasound and/or fluoroscopy) and all associated radiologicalsupervision and interpretation: 10/13/24 Nephrostomy using fluoroscopic guidance: 06/16/24 JJ stent: 06/16/24 Nephrostomy tube: 10/05/23 Nephrostomy with tube drainage: 07/2023 Nephrostomy with tube drainage: 01/10/21 JJ stent: 11/15/20 Radiation: 06/2020 Implantable venous access port: 04/2020 Cervical biopsy: 2019 Tumor cells, benign: 2001 Medications Inpatient Ativan, 1 mg= 1 tab(s), Oral, TID, PRN Dextrose 50% IV Push, 25 gram(s)= 50 mL, IV Push, AsDirected, PRN Dilaudid, 0.25 mg= 0.25 mL, IV Push, q3h, PRN DuoNeb, 3 mL, Inhalation, q4hRT, PRN Lexapro, 20 mg= 1 tab(s), Oral, qDay lidocaine 1% preservative-free injectable solution, 2.5 mg= 0.25 mL, Intradermal, prep pharm lidocaine 1% preservative-free injectable solution, 2.5 mg= 0.25 mL, Intradermal, prep pharm LR 1,000 mL, 1000 mL, Intravenous oxyCODONE 10 mg oral tablet ( IMMEDIATE release ), 10 mg= 1 tab(s), Oral, QID Tylenol, 650 mg= 2 tab(s), Oral, q4h, PRN Zofran, 4 mg= 2 mL, IV Push, q4h, PRN Home Ativan 1 mg oral tablet, 1 mg= 1 tab(s), Oral, TID, PRN, 2 refills Bactrim DS 800 mg-160 mg oral tablet, 1 tab(s), Oral, BID Lexapro 20 mg oral tablet, 20 mg= 1 tab(s), Oral, qDay, 5 refills ondansetron 4 mg oral tablet, 4 mg= 1 tab(s), Oral, BID, 2 refills oxyCODONE 5 mg oral tablet ( IMMEDIATE release ), 10 mg= 2 tab(s), Oral, q6h, PRN Tylenol Extra Strength 500 mg oral tablet, 1000 mg= 2 tab(s), Oral, q4h, PRN Allergies Haldol Tongue swelling Oranges Tongue swelling, Difficulty breathing penicillin Hives Social History Alcohol - Denies Alcohol Use, 06/13/2020 Use: Past. Type: Beer. Frequency: 1-2 times per week., 07/21/2023 Employment/School Status: Employed., 02/04/2024 Home/Environment - No Risk, 06/13/2020 Living situation: Home/Independent. Safe place to go: Yes. Financial concerns: No. Domestic Concerns: None. Lives In: Mobile home. Current Home Treatments None. Professional Skilled Services or Special Community Resources None. Marital Status: Unmarried., 12/16/2024 Nutrition/Health - No Risk, 06/13/2020 Type of diet: Regular. Appetite Poor. Eating Difficulties None., 08/06/2024 Sexual Sexually active: Yes. First active at age: 18 Years. Current partners: 1. Number of lifetime partners: 7. Self described orientation: Straight or heterosexual. Other contraceptive use: condoms. History of sexual abuse: No. Gender Identity: Identifies as female., 04/12/2020 Substance Abuse - Denies Substance Abuse, 06/13/2020 Use: Current. Type: Marijuana. Frequency: 1-2 times per month., 02/16/2025 Tobacco Nicotine Use: 5-9 cigarettes (between 1/4 to 1/2 pack)/day in last 30 days, Vaping Product in Last 90 Days. Type: Cigarettes. Tobacco use per day: 5. Started at age: 19 Years. Stopped at age: 32 Years. Smokeless Tobacco Use: Never. Exposure to Tobacco Smoke Lives in non-smoking home., 02/16/2025 Family History Alcohol abuse: Father. Asthma: Mother. Bladder cancer: Negative: Mother, Father, Sister, Brother, Daughter, Son and Grandparent. Breast cancer: Mother. COPD - Chronic obstructive pulmonary disease: Mother and Father. Cancer: Sister. Diabetes: Grandparent. Heart attack: Mother. Heart disease: Mother. Hypertension: Mother. Kidney stone: Mother. Malignant tumor of ovary: Sister. Renal cancer: Negative: Mother, Father, Sister, Brother, Daughter, Son and Grandparent. Renal disease: Negative: Mother, Father, Sister, Brother, Daughter, Son and Grandparent. Renal stone: Mother.Negative: Father, Sister, Brother, Daughter, Son and Grandparent. Stroke: Father and Grandparent. Substance abuse: Father. Health Status Family Member(s) Immunizations hepatitis B pediatric vaccine: 0 unknown unit (06/16/01) hepatitis B pediatric vaccine: 0 unknown unit (06/21/98) measles/mumps/rubella virus vaccine: 0 unknown unit (06/16/01) [1] XR Abdomen AP; TRICIA ADAMSON DO 04/06/2025 15:46 EDT [2] US Renal; SCOOBY JOSE MD 04/06/2025 16:45 EDT [3] CT Abdomen/Pelvis w/o Contrast; CLOTILDE BENSON MD 04/04/2025 15:44 EDT [4] CT Renal; SCOOBY JOSE MD 03/09/2025 15:54 EDT Digitally Signed by GONZALEZ SANDERS MD on 04/07/2025 09:46 AM [id number] Palliative care Progress note Palliative care consulted as part of positive palliative care screen. Chart reviewed in detail. Sheis established in the supportive care oncology. Her current pain is not related to her cancer and it is stayed related to post nephrostomy placement. She will follow in supportive care oncology after discharge for her chronic symptom management. Screen will be canceled at this time. She is otherwise receiving goal congruent care. Digitally Signed by SANTINO SAWYER MD on 04/07/2025 09:25 AM [id number] History and physical note Date of Service April 06, 2025 Chief Complaint Pt c/o left sided abdominal pain. States that she was recently admitted needing surgical interventions for kidney stones and she left due to the care she received. Pt has a left side nephrostomy tube. History of Present Illness This is a 34-year-old female with a past medical history consistent with cervical cancer in remission, known left ureteral stones status post left nephrostomy tube the presents the chief complaint ofleft-sided abdominal pain. Of note, patient was recently seen at for urologic intervention on stones but she left AMA before she received care. Returns on the advice of urology. Pertinent labs, CBC and CMP without significant derangement. UA was grossly unremarkable. Renal ultrasound revealed correct positioning of left nephrostomy tube. Patient to be admitted for urologic intervention. On exam, patient denies any new or acute complaints. Vital signs are stable at the time of evaluation. Review of Systems Complete detailed review of systems obtained and all pertinent positives and negatives are noted inthe history of present illness. Physical Exam Vitals and Measurements T: 36.7 C (Oral) TMIN: 36.7 C (Oral) TMAX: 36.8 C (Oral) HR: 61 RR: 16 BP: 121/82 SpO2: 95% WT: 51.8 kg Weight Dosing Weight: 51.8 kg (04/06/25) Physical Examination General: No apparent distress. Alert and appropriate. HEENT: NCAT EOMI Neck: Supple. No appreciable elevation in JVP. Cardiovascular: S1 S2 normal. No extra-audible heart tones. Respiratory: Bilaterally clear breath sounds with no crepitation or wheeze. Abdominal: Soft, nontender and nonrigid. No guarding. Bowel sounds present. Extremities: No edema. Adequate peripheral circulation. Neurological: Grossly intact without focal deficit. Cerebellar function preserved. Skin: Intact. Dry. No rash. Left CVA tenderness Lab Results 04/06 15:11 WBC: 9.9 Hgb: 13.7 Hct: 40.7 Platelet: 329 Neutrophil %: 68.8 Glucose Level: 84 Sodium Level: 140 Potassium Level: 4.4 BUN: 10.0 Creatinine Lvl (s): 0.95 Imaging Results and Diagnostics IMPRESSION: CTAP, personally reviewed 1. Multiple left-sided ureteral stones in the middle and distal ureter measuring up to 3 mm. 2. Mild left hydroureter similar prior. 3. Similar position of left nephrostomy tube. I have personally reviewed the images of this examination and agree with theresident's findings andinterpretation. Assessment/Plan Left ureteral stone Status post left nephrostomy Left flank pain History of cervical cancer Anxiety and depression Patient was admitted for management of left flank pain in the setting of known left ureteral stones, with nephrostomy in place. Urology is consulted, appreciate surgical recommendations. Will make patient n.p.o. status, chemical DVT prophylaxis is held. Patient UA without evidence of infection, defer antibiotics at this time. IV Dilaudid for pain control., IV Zofran for nausea control. CBC and BMP are ordered daily and replete electrolytes as necessary. Continue patient's home chronic medications pending pharmacy verification. The labs, the imaging were personally reviewed in this case. The case was personally discussed withthe ED physician. DVT prophylaxis: SCDs The patient is a full code Patient will require a 2 midnight stay for management of intractable left leg pain in the setting of known left ureteral stones requiring urologic intervention, possible replacement of nephrostomy tube. Risk of decompensation of discharge. Problem List/Past Medical History Ongoing Acute kidney injury Anxiety Asthma Bilateral flank pain Cancer related pain Cervical cancer Decreased appetite Dehydration DVT prophylaxis History of chemotherapy History of radiation therapy Hx of cervical cancer Hydronephrosis, left Kidney stone Left flank pain Moderate protein-calorie malnutrition Nausea and vomiting Nephrostomy status Obstructive uropathy Palliative care encounter Premature menopause Pyelonephritis Historical Cervicitis Chronic kidney disease, stage 3 (moderate) Complicated UTI (urinary tract infection) Encounter for antineoplastic chemotherapy ESBL (extended spectrum beta-lactamase) producing bacteria infection ESBL (extended spectrum beta-lactamase) producing bacteria infection History of COVID-19 Hydronephrosis of left kidney Mass of cervix Port-A-Cath in place Tinnitus Procedure/Surgical History Exchange nephrostomy catheter, percutaneous, including diagnostic nephrostogram and/or ureterogram when performed, imaging guidance (eg, ultrasound and/or fluoroscopy) and all associated radiologicalsupervision and interpretation: 02/16/25 Removal of implantable venous access port: 12/22/24 Exchange nephrostomy catheter, percutaneous, including diagnostic nephrostogram and/or ureterogram when performed, imaging guidance (eg, ultrasound and/or fluoroscopy) and all associated radiologicalsupervision and interpretation: 12/22/24 Exchange nephrostomy catheter, percutaneous, including diagnostic nephrostogram and/or ureterogram when performed, imaging guidance (eg, ultrasound and/or fluoroscopy) and all associated radiologicalsupervision and interpretation: 10/13/24 Nephrostomy using fluoroscopic guidance: 06/16/24 JJ stent: 06/16/24 Nephrostomy tube: 10/05/23 Nephrostomy with tube drainage: 07/2023 Nephrostomy with tube drainage: 01/10/21 JJ stent: 11/15/20 Radiation: 06/2020 Implantable venous access port: 04/2020 Cervical biopsy: 2019 Tumor cells, benign: 2001 Medications Home Medications (6) Active Ativan 1 mg oral tablet 1 mg = 1 tab(s), PRN, Oral, TID Bactrim DS 800 mg-160 mg oral tablet 1 tab(s), Oral, BID Lexapro 20 mg oral tablet 20 mg = 1 tab(s), Oral, qDay ondansetron 4 mg oral tablet 4 mg = 1 tab(s), Oral, BID oxyCODONE 5 mg oral tablet ( IMMEDIATE release ) 10 mg = 2 tab(s), PRN, Oral, q6h Tylenol Extra Strength 500 mg oral tablet 1,000 mg = 2 tab(s), PRN, Oral, q4h Allergies Haldol Tongue swelling Oranges Tongue swelling, Difficulty breathing penicillin Hives Social History Alcohol - Denies Alcohol Use, 06/13/2020 Use: Past. Type: Beer. Frequency: 1-2 times per week., 07/21/2023 Employment/School Status: Employed., 02/04/2024 Home/Environment - No Risk, 06/13/2020 Living situation: Home/Independent. Safe place to go: Yes. Financial concerns: No. Domestic Concerns: None. Lives In: Mobile home. Current Home Treatments None. Professional Skilled Services or Special Community Resources None. Marital Status: Unmarried., 12/16/2024 Nutrition/Health - No Risk, 06/13/2020 Type of diet: Regular. Appetite Poor. Eating Difficulties None., 08/06/2024 Sexual Sexually active: Yes. First active at age: 18 Years. Current partners: 1. Number of lifetime partners: 7. Self described orientation: Straight or heterosexual. Other contraceptive use: condoms. History of sexual abuse: No. Gender Identity: Identifies as female., 04/12/2020 Substance Abuse - Denies Substance Abuse, 06/13/2020 Use: Current. Type: Marijuana. Frequency: 1-2 times per month., 02/16/2025 Tobacco Nicotine Use: 5-9 cigarettes (between 1/4 to 1/2 pack)/day in last 30 days, Vaping Product in Last 90 Days. Type: Cigarettes. Tobacco use per day: 5. Started at age: 19 Years. Stopped at age: 32 Years. Smokeless Tobacco Use: Never. Exposure to Tobacco Smoke Lives in non-smoking home., 02/16/2025 Family History Alcohol abuse: Father. Asthma: Mother. Bladder cancer: Negative: Mother, Father, Sister, Brother, Daughter, Son and Grandparent. Breast cancer: Mother. COPD - Chronic obstructive pulmonary disease: Mother and Father. Cancer: Sister. Diabetes: Grandparent. Heart attack: Mother. Heart disease: Mother. Hypertension: Mother. Kidney stone: Mother. Malignant tumor of ovary: Sister. Renal cancer: Negative: Mother, Father, Sister, Brother, Daughter, Son and Grandparent. Renal disease: Negative: Mother, Father, Sister, Brother, Daughter, Son and Grandparent. Renal stone: Mother.Negative: Father, Sister, Brother, Daughter, Son and Grandparent. Stroke: Father and Grandparent. Substance abuse: Father. Health Status Family Member(s) Immunizations hepatitis B pediatric vaccine: 0 unknown unit (06/16/01) hepatitis B pediatric vaccine: 0 unknown unit (06/21/98) measles/mumps/rubella virus vaccine: 0 unknown unit (06/16/01) Code Status Code Status - Ordered -- 04/06/25 21:24:00 EDT, Full Code, Constant Order Digitally Signed by BHUPENDRA GALVEZ DO on 04/06/2025 11:09 PM [id number] Note* Exam Date Time Procedure Performing Provider Status 04/06/25 4:45 PM US Renal SCOOBY JOSE MD; Auth (Verified) [id number] ORIGINAL EXAMINATION: ULTRASOUND OF THE KIDNEYS 04/06/2025 [...] Sign Date: 04/06/2025 4:58:12 PM Ordering Provider: [facility]06-04-2025 Note* Exam Date Time Procedure Performing Provider Status 04/06/25 3:46 PM XR Abdomen AP TRICIA ADAMSON DO; Auth (Verified) [id number] ORIGINAL EXAMINATION: ONE SUPINE XRAY VIEW(S) OF [...] Sign Date: 04/06/2025 4:01:45 PM Ordering Provider: [facility]06-04-2025 Hospital Discharge instructions Follow Up Care 04/06/2025 13:04:40 With:OLE PACE MD Address: [address] [place] [address] [place] [address]- [phone] When:2-4 days [facility] 06-04-2025 Evaluation + Plan noteExtracted from: Title:History and Physical Author:BHUPENDRA GALVEZ Date:04/06/25 Left ureteral stone Status post left nephrostomy Left flank pain History of cervical cancer Anxiety and depression Patient was admitted for management of left flank pain in the setting of known left ureteral stones, with nephrostomy in place. Urology is consulted, appreciate surgical recommendations. Will make patient n.p.o. status, chemical DVT prophylaxis is held. Patient UA without evidence of infection, defer antibiotics at this time. IV Dilaudid for pain control., IV Zofran for nausea control. CBC and BMP are ordered daily and replete electrolytes as necessary. Continue patient's home chronic medications pending pharmacy verification. The labs, the imaging were personally reviewed in this case. The case was personally discussed with the ED physician. DVT prophylaxis: SCDs The patient is a full code Patient will require a 2 midnight stay for management of intractable left leg pain in the setting of known left ureteral stones requiring urologic intervention, possible replacement of nephrostomy tube. Risk of decompensation of discharge. Future Appointments Appointment Date:04/12/2025 08:30:00 AM Scheduled Provider: Location:XRAY Appointment Type:NM Kidney Diuretic Appointment Date:04/13/2025 01:00:00 PM Scheduled Provider: Location:IR Appointment Type:IR Nephrostomy Exchange Appointment Date:05/18/2025 11:20:00 AM Scheduled Provider: Location:[facility] Appointment Type:SO OV Follow Up Future Scheduled Tests Laboratory* hCG, quantitative ([facility] Only) 11/15/24 Radiology* IR Nephrostomy Exchange 04/13/25 * IR Nephrostomy Exchange 12/30/24 * CT Renal 03/08/25 * NM Kidney Diuretic 03/08/25 * NM Kidney Diuretic 04/12/25 [facility] 06-03[facility] Discharge summary Date of Service 04/05/2025 Discharge Diagnosis Acute on chronic left-sided abdominal and flank pain Acute urinary traction Chronic left nephrostomy tube Anxiety/depression Acute on chronic cancer-related pain Hospital Course Patient is a 34-year-old female with PMHx Cervical cancer in remission, 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 She presented to [facility] on 04/04/2025 with complaints of left flank pain and abdominal pain. Upon arrival to the emergency department, patient is afebrile and hemodynamically stable. CBC with leukocytosis 11.5, UA with large leukocyte esterase, 10-20 WBCs, 2+ bacteria. test negative. BMP normal. CT abdomen and pelvis showing multiple left-sided ureteral stones in the middle and distal ureter measuring up to 3 mm. Mild left hydroureter similar to prior. Patient admitted and consult placed to urology for further input and palliative care to assist with pain regimen. Per urology progress note, possible intervention to be completed including possible surgery. To be noted, patient is currently scheduled outpatient for NM kidney on 04/11/2025 and nephro tube exchange on 04/13/[address] Sanders. Informed by nursing staff that patient left AMA. Provider was not able to talk to the patient prior to leaving. Patient also left before being able to talk to palliative care team. On exam today, patient is resting comfortably in the bed. She is tearful and stating she is in a lot of pain. She states that she feels she is not being well cared for. Denies any nausea, vomiting, chest pain. Patient is agreeable to see urology and palliative care while in house. Nurse at the bedside and one-time dose of IV Dilaudid given now to assist with pain management. Plan of care discussed with patient. All questions answered. Patient verbalized understanding is agreeable to plan of care. Discussed with my collaborating physician Dr. Flores. This dictation was performed using voice recognition software and may include grammatical and/or spelling errors. Allergies Haldol Tongue swelling Oranges Tongue swelling, Difficulty breathing penicillin Hives Consults Consult to Palliative Care (Palliative Care to See) - Ordered -- 04/05/25 10:28:00 EDT, pain management, MD SANJEEV. OLE Hollingsworth, pt request to assist with pain regimen Consult to Physician - Ordered -- 04/05/25 10:11:00 EDT, GONZALEZ SANDERS MD, Routine, left-sided abdominal and flank pain with nephro tube Imaging Results and Diagnostics CT Abdomen/Pelvis w/o Contrast Result Date: April 04, 2025 Verified By: CLOTILDE BENSON MD CLINICAL STATEMENT: IMPRESSION: 1. Multiple left-sided ureteral stones in the middle and distal uretermeasuring up to 3mm.2. Mild left hydroureter similar prior.3. Similar position of left nephrostomy tube.I have personally reviewed the images of this examination and agree with theresident's findings and interpretation. Physical Exam Vitals and Measurements T: 36.6 C (Oral) HR: 67 RR: 16 BP: 115/82 SpO2: 97% HT: 165.1 cm WT: 52.3 kg BMI: 19.19 Weight Dosing Weight: 52.3 kg (04/05/25) Dosing Weight: 52.3 kg (04/04/25) General: No acute distress. Alert and Appropriate Skin: No rash. Warm, Dry, Intact Lungs: Bilaterally diminished breath sounds with no crepitation or wheeze. Unlabored Cardiovascular: Heart is regular rhythm, S1S2, No extra-audible heart tones Abdomen: Abdomen is soft, nontender. Bowel sounds positive all four quadrants. Left nephro tube noted with cloudy urine Extremities: No clubbing, cyanosis or edema. Peripheral pulses palpable. No calf tenderness. Adequate peripheral circulation. Neurological: The patient is awake, oriented to self, time, place and situation. Following simple commands, moving all extremities. Code Status No qualifying data available. Admission Date 04/04/2025 Discharge Date 04/05/2025 Medications Unchanged acetaminophen (Tylenol Extra Strength 500 mg oral tablet)2 tab(s) by mouth every 4 hours as needed as needed for pain. albuterol (albuterol MDI (90 mcg/inh) CFC free inhalation aerosol)2 puff(s) by inhalation every 6 hours as needed as needed for wheezing. escitalopram (Lexapro 20 mg oral tablet)1 tab(s) by mouth once a day. Refills: 5. LORazepam (Ativan 1 mg oral tablet)1 tab(s) by mouth three (3) times a day as needed as needed for anxiety. Refills: 2. ondansetron (ondansetron 4 mg oral tablet)1 tab(s) by mouth two (2) times a day. TAKE ONE TABLET BYMOUTH EVERY 8 HOURS NEEDED FOR NAUSEA AND VOMITING. Refills: 2. oxyCODONE (oxyCODONE 5 mg oral tablet ( IMMEDIATE release ))2 tab(s) by mouth every 6 hours as needed for pain. may dispense 03/11/25. Refills: 0. sulfamethoxazole-trimethoprim (Bactrim DS 800 mg-160 mg oral tablet)1 tab(s) by mouth two (2) timesa day for 30 Days. Refills: 0. Follow Up Appointments No qualifying data available. Follow Up Labs/Studies Discharge Labs No Follow-up Labs Discharge Studies No Follow-up Studies Discharge Diet No qualifying data available. Discharge Activity No qualifying data available. Condition on Discharge Poor Discharge Disposition AMA Information Provided To Patient Time Spent I have spent a total of 37 minutes reviewing the patient's diagnostic labs and testing, seeing and examining the patient, and documenting in the medical record. Please see assessment for further detail. Digitally Signed by LIZY PHAM on 04/05/2025 05:25 PM [id number] Palliative care Progress note Palliative care was consulted at the patient request to assist with pain regimen. Consult was placed on 04/05/2025 at 1028. Patient was discharged same day at 1328 prior to being seen. I did email the supportive care oncology clinic so they could follow-up in case she needed to be evaluated in officeto assist with pain control Digitally Signed by SANTINO SAWYER MD on 04/05/2025 01:49 PM [id number] Urology Consult note Date of Service 04/05/25 Reason for Consultation left flank and abdominal pain, L neph tube Referring Physician NEGRA Lawrence History of Present Illness 34 YO F, known to Dr. Sanders, with pertinent urological hx including: left hydronephrosis, obstructive uropathy, and recurrent UTI. Other PMH: LOAN, anxiety, anemia, cancer-related pain, cervical cancer, dehydration, hx chemo and radiation, moderate protein-montrell malnutrition, premature menopause, pyelon ephritis Patient established care on 03/08/[address] Sanders in office for c/o of kidney stones, recurrent UTIs, hx obstructive uropathy on left side (cancer blocking ureter) and has had chronic left flank pain since. She has a left nephrostomy that functions well with good UO. She has seen [facility] for eval. for possible L nephrectomy, but was denied same due to high surgical risk. She had an ER F/U on 03/30/[address] Sanders as she was in ER on 03/15/25 with c/o of left flank pain and UTI. Films x2 reviewed by Dr. Sanders which show no current kidney stones. She did not get MAG3 scan as ordered. There was an attempt to internalize ureteral stent that was unsuccessful; currently getting neph tube changed q8w. Patient presented to ER yesterday with ongoing c/o of left flank pain and abdominal pain. States a few days prior, she accidentally shut the neph tube in the door and pain has worsened since. She states urine has been cloudy in neph tube. CBC WNL. 2 urine samples (clean catch + neph tube) both appear infected based on UA, CC culture pending. CT done which shows multiple left-sided ureteral stonesin the middle and distal ureter measuring up to 3 mm, does show mild left hydroureter similar to prior in a similar position of the left nephrostomy tube. She was admitted for pain control. Patient seen resting in bed. Continues to endorse left flank and abdominal pain. Denies dysuria, hematuria, and constipation, but does endorse intermittent chills. We reviewed recent CT, Dr. Sanders's OP plan, etc. Review of Systems GENERAL: No fevers, no chills, no weight loss. INTEGUMENTARY: No rashes. HEENT: No headaches, no visual disturbances, no hearing loss. CARDIOVASCULAR: No chest pain, no palpitations. RESPIRATORY: No shortness of breath, no cough. GI: No nausea, no diarrhea. : see HPI for pertinent positives and negatives. MUSCULOSKELETAL: No pain, no weakness. NEUROLOGIC: No focal deficits. PSYCHIATRIC: no depression, no anxiety. HEMATOLOGY: No abnormal bruising, no easy bleeding. Physical Exam Vitals and Measurements T: 36.6 C (Oral) TMIN: 36.4 C (Temporal Artery) TMAX: 36.6 C (Oral) HR: 67 RR: 16 BP: 115/82 SpO2: 97% HT: 165.1 cm WT: 52.3 kg BMI: 19.19 Weight Dosing Weight: 52.3 kg (04/05/25) Dosing Weight: 52.3 kg (04/04/25) GENERAL: 34 year old female that is resting in bed. Appears to be in no acute distress. SKIN: warm and dry. No rashes noted. HEENT: mucous membranes moist. LUNGS: no use of accessory muscles, no wheezes or rhonchi. ABDOMEN: Soft, non distended, non tender. Bowel sounds present x 4. GENITOURINARY: L neph tube draining slightly cloudy yellow urine. No redness or signs of infection near insertion site. MUSCULOSKELETAL: Moves all extremities x 4. VASCULAR: Bilateral pedal pulses are palpable +2. NEUROLOGICAL: A&O x3. No focal deficits. Lab Results 04/05 06:25 WBC: 7.0 Hgb: 12.7 Hct: 37.4 Platelet: 369 Neutrophil %: 53.2 Glucose Level: 84 Sodium Level: 141 Potassium Level: 4.2 BUN: 10.0 Creatinine Lvl (s): 0.81 04/04 14:55 WBC: 11.5 H Hgb: 15.1 Hct: 45.3 Platelet: 381 Neutrophil %: 67.6 Glucose Level: 78 Sodium Level: 141 Potassium Level: 3.8 BUN: 12.0 Creatinine Lvl (s): 0.84 Imaging Results and Diagnostics (04/04/2025 15:[address] Abdomen/Pelvis w/o Contrast) ORIGINAL EXAMINATION: CT OF THE ABDOMEN AND [...] resident's findings and interpretation. Interpreted by: Clotilde Benson MD Preliminary Report By: Noemi Salgado MD Electronically signed By Clotilde Benson MD Dictated Date: 04/04/2025 3:54:29 PM Prelim Date: 04/04/2025 4:10:13 PM Sign Date: 04/04/2025 4:10:13 PM Ordering Provider: GUCCI JOAQUIN IMAGE This document has an image [1] Assessment/Plan 1. Left flank pain Chronic. Left neph tube draining well. Mag3 scan ordered to assess overall renal function that will need F/U in OP setting with Dr. Sanders as patient has expressed her wishes for nephrectomy, though she is high risk and it may not be in herbest interest overall. 3. Hydronephrosis, left see CT Mild/chronic 4. Left ureteral stone see CT Has multiple distal left ureteral stones causing mild hydro. I discussed her symptoms, CT, case, etc. with Dr. Sanders who suggested possible C- URS and LL to treatdistal stones. I was very clear with her that this surgery may not improve overall pain and/or may make it worse given she has ureteral obstruction and it may be difficult to access ureter entirely for definitive stone management. She wants to think on whether or not she wants to attempt surgery and will have her nurse message me with a decision. Will make her NPO at midnight, just in case. Ordered: NPO after Midnight, 04/05/25 23:58:00 EDT, Constant Order 5. UTI (urinary tract infection) Awaiting final C&S Continue IV Cipro 6. Palliative care patient Pall care consulted for pain mgmt Problem List/Past Medical History Ongoing Acute kidney injury Anxiety Asthma Bilateral flank pain Cancer related pain Cervical cancer Decreased appetite Dehydration DVT prophylaxis History of chemotherapy History of radiation therapy Hx of cervical cancer Hydronephrosis, left Kidney stone Left flank pain Moderate protein-calorie malnutrition Nausea and vomiting Nephrostomy status Obstructive uropathy Palliative care encounter Premature menopause Pyelonephritis Historical Cervicitis Chronic kidney disease, stage 3 (moderate) Complicated UTI (urinary tract infection) Encounter for antineoplastic chemotherapy ESBL (extended spectrum beta-lactamase) producing bacteria infection ESBL (extended spectrum beta-lactamase) producing bacteria infection History of COVID-19 Hydronephrosis of left kidney Mass of cervix Port-A-Cath in place Tinnitus Procedure/Surgical History Exchange nephrostomy catheter, percutaneous, including diagnostic nephrostogram and/or ureterogram when performed, imaging guidance (eg, ultrasound and/or fluoroscopy) and all associated radiologicalsupervision and interpretation: 02/16/25 Removal of implantable venous access port: 12/22/24 Exchange nephrostomy catheter, percutaneous, including diagnostic nephrostogram and/or ureterogram when performed, imaging guidance (eg, ultrasound and/or fluoroscopy) and all associated radiologicalsupervision and interpretation: 12/22/24 Exchange nephrostomy catheter, percutaneous, including diagnostic nephrostogram and/or ureterogram when performed, imaging guidance (eg, ultrasound and/or fluoroscopy) and all associated radiologicalsupervision and interpretation: 10/13/24 Nephrostomy using fluoroscopic guidance: 06/16/24 JJ stent: 06/16/24 Nephrostomy tube: 10/05/23 Nephrostomy with tube drainage: 07/2023 Nephrostomy with tube drainage: 01/10/21 JJ stent: 11/15/20 Radiation: 06/2020 Implantable venous access port: 04/2020 Cervical biopsy: 2019 Tumor cells, benign: 2001 Medications Inpatient acetaminophen, 650 mg= 2 tab(s), Oral, q6hWA, PRN albuterol 2.5 mg/3 mL (0.083%) inhalation solution, 2.5 mg= 3 mL, Inhalation, q6hRT, PRN Ativan, 1 mg= 1 tab(s), Oral, TID, PRN Cipro I.V., 400 mg= 200 mL, IV Piggyback, BID Dextrose 50% IV Push, 25 gram(s)= 50 mL, IV Push, AsDirected, PRN Dilaudid, 0.5 mg= 0.5 mL, IV Push, q3h, PRN Dilaudid, 1 mg= 1 mL, IV Push, q3h, PRN Lexapro, 20 mg= 1 tab(s), Oral, qDay lidocaine 1% preservative-free injectable solution, 2.5 mg= 0.25 mL, Intradermal, prep pharm lidocaine 1% preservative-free injectable solution, 2.5 mg= 0.25 mL, Intradermal, prep pharm melatonin, 3 mg= 1 tab(s), Oral, qHS, PRN melatonin, 3 mg= 1 tab(s), Oral, qHS, PRN oxyCODONE 5 mg oral tablet ( IMMEDIATE release ), 10 mg= 2 tab(s), Oral, q6h, PRN Toradol, 15 mg= 1 mL, IV Push, q6hr, PRN Tylenol, 1000 mg= 2 tab(s), Oral, TID Zofran, 4 mg= 2 mL, IV Push, q4h, PRN Home albuterol MDI (90 mcg/inh) CFC free inhalation aerosol, 2 puff(s), Inhalation, q6h, PRN Ativan 1 mg oral tablet, 1 mg= 1 tab(s), Oral, TID, PRN, 2 refills Bactrim DS 800 mg-160 mg oral tablet, 1 tab(s), Oral, BID Lexapro 20 mg oral tablet, 20 mg= 1 tab(s), Oral, qDay, 5 refills ondansetron 4 mg oral tablet, 4 mg= 1 tab(s), Oral, BID, 2 refills oxyCODONE 5 mg oral tablet ( IMMEDIATE release ), 10 mg= 2 tab(s), Oral, q6h, PRN Tylenol Extra Strength 500 mg oral tablet, 1000 mg= 2 tab(s), Oral, q4h, PRN Allergies Haldol Tongue swelling Oranges Tongue swelling, Difficulty breathing penicillin Hives Social History Alcohol - Denies Alcohol Use, 06/13/2020 Use: Past. Type: Beer. Frequency: 1-2 times per week., 07/21/2023 Employment/School Status: Employed., 02/04/2024 Home/Environment - No Risk, 06/13/2020 Living situation: Home/Independent. Safe place to go: Yes. Financial concerns: No. Domestic Concerns: None. Lives In: Mobile home. Current Home Treatments None. Professional Skilled Services or Special Community Resources None. Marital Status: Unmarried., 12/16/2024 Nutrition/Health - No Risk, 06/13/2020 Type of diet: Regular. Appetite Poor. Eating Difficulties None., 08/06/2024 Sexual Sexually active: Yes. First active at age: 18 Years. Current partners: 1. Number of lifetime partners: 7. Self described orientation: Straight or heterosexual. Other contraceptive use: condoms. History of sexual abuse: No. Gender Identity: Identifies as female., 04/12/2020 Substance Abuse - Denies Substance Abuse, 06/13/2020 Use: Current. Type: Marijuana. Frequency: 1-2 times per month., 02/16/2025 Tobacco Nicotine Use: 5-9 cigarettes (between 1/4 to 1/2 pack)/day in last 30 days, Vaping Product in Last 90 Days. Type: Cigarettes. Tobacco use per day: 5. Started at age: 19 Years. Stopped at age: 32 Years. Smokeless Tobacco Use: Never. Exposure to Tobacco Smoke Lives in non-smoking home., 02/16/2025 Family History Alcohol abuse: Father. Asthma: Mother. Bladder cancer: Negative: Mother, Father, Sister, Brother, Daughter, Son and Grandparent. Breast cancer: Mother. COPD - Chronic obstructive pulmonary disease: Mother and Father. Cancer: Sister. Diabetes: Grandparent. Heart attack: Mother. Heart disease: Mother. Hypertension: Mother. Kidney stone: Mother. Malignant tumor of ovary: Sister. Renal cancer: Negative: Mother, Father, Sister, Brother, Daughter, Son and Grandparent. Renal disease: Negative: Mother, Father, Sister, Brother, Daughter, Son and Grandparent. Renal stone: Mother.Negative: Father, Sister, Brother, Daughter, Son and Grandparent. Stroke: Father and Grandparent. Substance abuse: Father. Health Status Family Member(s) Immunizations hepatitis B pediatric vaccine: 0 unknown unit (06/16/01) hepatitis B pediatric vaccine: 0 unknown unit (06/21/98) measles/mumps/rubella virus vaccine: 0 unknown unit (06/16/01) [1] CT Abdomen/Pelvis w/o Contrast; CLOTILDE BENSON MD 04/04/2025 15:44 EDT Digitally Signed by AURA BOWER APRN-SWING FRAME 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 on 04/05/2025 11:56 AM [id number] Note Reason for Consultation Admission From: Home No qualifying data available. Skin Team Findings Vitals and Measurements T: 36.6 C (Oral) TMIN: 36.4 C (Temporal Artery) TMAX: 36.6 C (Oral) HR: 67 RR: 16 BP: 115/82 SpO2: 97% HT: 165.1 cm WT: 52.3 kg BMI: 19.19 Pressure Area Details No pressure injuries noted. Patient has a left nephrostomy. Dressing change completed. Assessments and Recommendations ------Assessments------ Current Skin/Wound Interventions: Hospital bed, Turn and reposition every 2 hours ------Recommendations------ Recommended Skin/Wound Interventions: Seat cushion, Turn and reposition every 2 hours Education Individuals Taught: Patient Learning Readiness: Willing to learn Barriers to Learning: None evident Teaching Method: Explanation Problem List/Past Medical History Ongoing Acute kidney injury Anxiety Asthma Bilateral flank pain Cancer related pain Cervical cancer Decreased appetite Dehydration DVT prophylaxis History of chemotherapy History of radiation therapy Hx of cervical cancer Hydronephrosis, left Kidney stone Left flank pain Moderate protein-calorie malnutrition Nausea and vomiting Nephrostomy status Obstructive uropathy Palliative care encounter Premature menopause Pyelonephritis Historical Cervicitis Chronic kidney disease, stage 3 (moderate) Complicated UTI (urinary tract infection) Encounter for antineoplastic chemotherapy ESBL (extended spectrum beta-lactamase) producing bacteria infection ESBL (extended spectrum beta-lactamase) producing bacteria infection History of COVID-19 Hydronephrosis of left kidney Mass of cervix Port-A-Cath in place Tinnitus Digitally Signed by Paola Chiang RN on 04/05/2025 11:38 AM [id number] History and physical note Date of Service 04/04/25 Chief Complaint Abdominal pain, L and R flank pain. Nephrostomy site also hurts. 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 History obtained bypatient, ED physician, chart review. The patient recently closed her nephrostomy tube in a car door. Has been having severe flank and abdominal pain. Has constant flank pain but it is worse now. [place] recently having vomiting and diarrhea but none over the past 24 hours. She denies any fever. CBC with leukocytosis 11.5, UA with large leukocyte esterase, 10-20 WBCs, 2+ bacteria. test negative. BMP normal. Urine culture taken. CT abdomen pelvis shows left-sided ureteral stones with mild left hydroureter which is similar and no adjustment of nephrostomy tube. ECG shows sinus rhythm. Patient was given Cipro, Dilaudid multiple doses, morphine, Ativan, Zofran. They did discuss the case with urology who is recommending pain control, discharge, outpatient follow-up. Pain has not been controlled and consequently, she has been requested for admission. Physical Exam Vitals and Measurements T: 36.4 C (Temporal Artery) HR: 69 RR: 20 BP: 118/85 SpO2: 95% WT: 52.3 kg Weight Dosing Weight: 52.3 kg (04/04/25) GA: Alert and oriented x3, no acute distress Abd: Not distended : She has a left-sided nephrostomy tube with surrounding erythema and foul smell. HEENT: NCAT, sclera anicteric, oral mucosa moist Pulmonary: No tachypnea or use of accessory respiratory muscles. MSK: No gross deformities Cardiovascular: Not tachycardic Skin: Warm and dry Neuro: Spontaneous movement of all extremities, cranial nerves II through XII grossly normal Psychiatric: Thought content, associations, attention are all normal. Lab Results 04/04 14:55 WBC: 11.5 10^3/mcL High (04/04/25 14:55:00) RBC: 4.7 10^6/mcL (04/04/25 14:55:00) Hgb: 15.1 G/dL (04/04/25 14:55:00) Hct: 45.3 % (04/04/25 14:55:00) MCV: 96.4 fL (04/04/25 14:55:00) MCH: 32.1 pg (04/04/25 14:55:00) MCHC: 33.3 G/dL (04/04/25 14:55:00) RDW: 15.6 % High (04/04/25 14:55:00) Platelet: 381 10^3/mcL (04/04/25 14:55:00) MPV: 7.8 fL (04/04/25 14:55:00) Monocyte Distribution Width: 18.36 (04/04/25 14:55:00) Neutrophil %: 67.6 % (04/04/25 14:55:00) Lymphocyte %: 20.4 % (04/04/25 14:55:00) Monocyte %: 9.3 % (04/04/25 14:55:00) Eosinophil %: 1.3 % (04/04/25 14:55:00) Basophil %: 1.4 % (04/04/25 14:55:00) Neutrophil, Absolute: 7.8 10^3/mcL (04/04/25 14:55:00) Lymphocyte, Absolute: 2.3 10^3/mcL (04/04/25 14:55:00) Monocyte, Absolute: 1.1 10^3/mcL (04/04/25 14:55:00) Eosinophil, Absolute: 0.2 10^3/mcL (04/04/25 14:55:00) Basophil, Absolute: 0.2 10^3/mcL (04/04/25 14:55:00) UA Specimen Type: Not Given (04/04/25 14:55:00) UA Specimen Type: Clean Catch (04/04/25 14:55:00) UA Color: Yellow (04/04/25 14:55:00) UA Color: Yellow (04/04/25 14:55:00) UA Appear: Cloudy Abnormal (04/04/25 14:55:00) UA Appear: Clear (04/04/25 14:55:00) UA Spec Grav: 1.010 (04/04/25 14:55:00) UA Spec Grav: 1.015 (04/04/25 14:55:00) UA Glucose: Negative. (04/04/25 14:55:00) UA Glucose: Negative. (04/04/25 14:55:00) UA Bili: Negative. (04/04/25 14:55:00) UA Bili: Negative. (04/04/25 14:55:00) UA Ketones: Negative.1 (04/04/25 14:55:00) UA Ketones: Negative.1 (04/04/25 14:55:00) UA Blood: Moderate Abnormal (04/04/25 14:55:00) UA Blood: Negative. (04/04/25 14:55:00) UA pH: >=8.5a Abnormal (04/04/25 14:55:00) UA pH: 6.5 (04/04/25 14:55:00) UA Protein: 100 Abnormal (04/04/25 14:55:00) UA Protein: Negative.1 (04/04/25 14:55:00) UA Urobilinogen: 0.2 (04/04/25 14:55:00) UA Urobilinogen: 0.2 (04/04/25 14:55:00) UA Nitrite: Negative. (04/04/25 14:55:00) UA Nitrite: Negative. (04/04/25 14:55:00) UA Leuk Est: Large Abnormal (04/04/25 14:55:00) UA Leuk Est: Trace (04/04/25 14:55:00) UA RBC: 10-20 Abnormal (04/04/25 14:55:00) UA WBC: 10-20 Abnormal (04/04/25 14:55:00) UA Squam Epithelial: 3-5 (04/04/25 14:55:00) UA Mucous: 4+ (03/15/25 16:07:00) UA Bacteria: 2+ Abnormal (04/04/25 14:55:00) UA Trip Rai Crystals: 3+ (04/04/25 14:55:00) UA Crenated RBCs: Rare Abnormal (03/09/25 14:30:00) Urine POC: Negative (04/04/25 15:11:00) Glucose Level: 78 mg/dL (04/04/25 14:55:00) Sodium Level: 141 mEq/L (04/04/25 14:55:00) Potassium Level: 3.8 mEq/L (04/04/25 14:55:00) Chloride: 108 mEq/L (04/04/25 14:55:00) CO2: 27 mEq/L (04/04/25 14:55:00) Electrolyte Balance: 6 mEq/L (04/04/25 14:55:00) BUN: 12 mg/dL (04/04/25 14:55:00) Creatinine Lvl (s): 0.84 mg/dL (04/04/25 14:55:00) Estimated Glomerular Filtration Rate: 92 ml/min/1.73sqm (04/04/25 14:55:00) BUN/Creatinine Ratio: 14.3 ratio (04/04/25 14:55:00) Calcium Lvl: 10.2 mg/dL (04/04/25 14:55:00) Total Protein: 7.3 G/dL (03/15/25 16:07:00) Albumin Level: 4 G/dL (03/15/25 16:07:00) Globulin: 3.3 G/dL (03/15/25 16:07:00) A/G Ratio: 1.2 ratio (03/15/25 16:07:00) Bili Total: 0.3 mg/dL (03/15/25 16:07:00) Alk Phos: 72 U/L (03/15/25 16:07:00) AST/SGOT: 19 U/L (03/15/25 16:07:00) ALT/SGPT: 9 U/L Low (03/15/25 16:07:00) Lipase Level: 25 U/L (03/09/25 13:09:00) Lactic Acid Lvl: 1.3 mmol/L (03/15/25 16:07:00) Urine Preg POC Confirmation: Sent to lab (04/04/25 15:11:00) Imaging Results and Diagnostics CT Abdomen/Pelvis w/o Contrast Result Date: April 04, 2025 Verified By: CLOTILDE BENSON MD CLINICAL STATEMENT: IMPRESSION: 1. Multiple left-sided ureteral stones in the middle and distal uretermeasuring up to 3mm.2. Mild left hydroureter similar prior.3. Similar position of left nephrostomy tube.I have personally reviewed the images of this examination and agree with theresident's findings and interpretation. EKG EC04/04/25: SINUS RHYTHM PROBABLE LEFT ATRIAL ENLARGEMENT This EKG was read and contributed directly to the care of the patient Electronic Signature: NITA RUGGIERO MD 04/04/2025 19:44:44 Assessment/Plan Acute on chronic left-sided abdominal and flank pain. Occurred after recently catching her nephrostomy tube in a door. She has some small nephrolithiasis on CT. Urology was recommending patient follow-up with the patient's pain could be controlled. Toradol, acetaminophen as first-line. Home oxycodone second line. Dilaudid for breakthrough. Admit for observation regular floor Considering course, may have urology provide inpatient recommendations. Concern for acute urinary tract infection. Urine appears worse than prior with now 10-20 WBCs and 2+ bacteria. Large leukocyte esterase. She was recently on Cefuroxime and Bactrim. Ciprofloxacin Follow urine culture Chronic left nephrostomy tube. Appears irritated with an area of 1 x 2 cm ovoid erythema and tenderness to palpation. Mild foul-smelling drainage. In the past, palliative care was recommending that she go to [facility] urology for consideration of reconstructive surgery or nephrectomy to prevent recurrent UTIs from chronic left nephrostomy tube after prior cervical cancer. She has not yet had an appointment with them. Recommend outpatient follow-up with urology. Anxiety. Patient is on Ativan chronically for this. Continue Ativan as needed and scheduled escitalopram. Acute on chronic pain. Likely secondary to acute infection as well as nephrostomy tube irritation. Continue patient's home oxycodone. Dilaudid for breakthrough. DVT prophylaxis: SCDs Note dictated using voice recognition software and may contain typographical errors. Problem List/Past Medical History Ongoing Acute kidney injury Anxiety Asthma Bilateral flank pain Cancer related pain Cervical cancer Decreased appetite Dehydration DVT prophylaxis History of chemotherapy History of radiation therapy Hx of cervical cancer Hydronephrosis, left Kidney stone Left flank pain Moderate protein-calorie malnutrition Nausea and vomiting Nephrostomy status Obstructive uropathy Palliative care encounter Premature menopause Pyelonephritis Historical Cervicitis Chronic kidney disease, stage 3 (moderate) Complicated UTI (urinary tract infection) Encounter for antineoplastic chemotherapy ESBL (extended spectrum beta-lactamase) producing bacteria infection ESBL (extended spectrum beta-lactamase) producing bacteria infection History of COVID-19 Hydronephrosis of left kidney Mass of cervix Port-A-Cath in place Tinnitus Procedure/Surgical History Exchange nephrostomy catheter, percutaneous, including diagnostic nephrostogram and/or ureterogram when performed, imaging guidance (eg, ultrasound and/or fluoroscopy) and all associated radiologicalsupervision and interpretation: 02/16/25 Removal of implantable venous access port: 12/22/24 Exchange nephrostomy catheter, percutaneous, including diagnostic nephrostogram and/or ureterogram when performed, imaging guidance (eg, ultrasound and/or fluoroscopy) and all associated radiologicalsupervision and interpretation: 12/22/24 Exchange nephrostomy catheter, percutaneous, including diagnostic nephrostogram and/or ureterogram when performed, imaging guidance (eg, ultrasound and/or fluoroscopy) and all associated radiologicalsupervision and interpretation: 10/13/24 Nephrostomy using fluoroscopic guidance: 06/16/24 JJ stent: 06/16/24 Nephrostomy tube: 10/05/23 Nephrostomy with tube drainage: 07/2023 Nephrostomy with tube drainage: 01/10/21 JJ stent: 11/15/20 Radiation: 06/2020 Implantable venous access port: 04/2020 Cervical biopsy: 2019 Tumor cells, benign: 2002 Medications Home Medications (7) Active albuterol MDI (90 mcg/inh) CFC free inhalation aerosol 2 puff(s), PRN, Inhalation, q6h Ativan 1 mg oral tablet 1 mg = 1 tab(s), PRN, Oral, TID Bactrim DS 800 mg-160 mg oral tablet 1 tab(s), Oral, BID Lexapro 20 mg oral tablet 20 mg = 1 tab(s), Oral, qDay ondansetron 4 mg oral tablet 4 mg = 1 tab(s), Oral, BID oxyCODONE 5 mg oral tablet ( IMMEDIATE release ) 10 mg = 2 tab(s), PRN, Oral, q6h Tylenol Extra Strength 500 mg oral tablet 1,000 mg = 2 tab(s), PRN, Oral, q4h Allergies Haldol Tongue swelling Oranges Tongue swelling, Difficulty breathing penicillin Hives Social History Alcohol - Denies Alcohol Use, 06/13/2020 Use: Past. Type: Beer. Frequency: 1-2 times per week., 07/21/2023 Employment/School Status: Employed., 02/04/2024 Home/Environment - No Risk, 06/13/2020 Living situation: Home/Independent. Safe place to go: Yes. Financial concerns: No. Domestic Concerns: None. Lives In: Mobile home. Current Home Treatments None. Professional Skilled Services or Special Community Resources None. Marital Status: Unmarried., 12/16/2024 Nutrition/Health - No Risk, 06/13/2020 Type of diet: Regular. Appetite Poor. Eating Difficulties None., 08/06/2024 Sexual Sexually active: Yes. First active at age: 18 Years. Current partners: 1. Number of lifetime partners: 7. Self described orientation: Straight or heterosexual. Other contraceptive use: condoms. History of sexual abuse: No. Gender Identity: Identifies as female., 04/12/2020 Substance Abuse - Denies Substance Abuse, 06/13/2020 Use: Current. Type: Marijuana. Frequency: 1-2 times per month., 02/16/2025 Tobacco Nicotine Use: 5-9 cigarettes (between 1/4 to 1/2 pack)/day in last 30 days, Vaping Product in Last 90 Days. Type: Cigarettes. Tobacco use per day: 5. Started at age: 19 Years. Stopped at age: 32 Years. Smokeless Tobacco Use: Never. Exposure to Tobacco Smoke Lives in non-smoking home., 02/16/2025 Family History Alcohol abuse: Father. Asthma: Mother. Bladder cancer: Negative: Mother, Father, Sister, Brother, Daughter, Son and Grandparent. Breast cancer: Mother. COPD - Chronic obstructive pulmonary disease: Mother and Father. Cancer: Sister. Diabetes: Grandparent. Heart attack: Mother. Heart disease: Mother. Hypertension: Mother. Kidney stone: Mother. Malignant tumor of ovary: Sister. Renal cancer: Negative: Mother, Father, Sister, Brother, Daughter, Son and Grandparent. Renal disease: Negative: Mother, Father, Sister, Brother, Daughter, Son and Grandparent. Renal stone: Mother.Negative: Father, Sister, Brother, Daughter, Son and Grandparent. Stroke: Father and Grandparent. Substance abuse: Father. Health Status Family Member(s) Immunizations hepatitis B pediatric vaccine: 0 unknown unit (06/16/01) hepatitis B pediatric vaccine: 0 unknown unit (06/21/98) measles/mumps/rubella virus vaccine: 0 unknown unit (06/16/01) Code Status No qualifying data available. Digitally Signed by RHIANNON ARTEAGA MD on 04/04/2025 09:33 PM [id number] Note* Exam Date Time Procedure Performing Provider Status 04/04/25 7:18 PM EKG (ED) - CV NITA RUGGIERO MD; [facility] (Verified) ECG Final Report SINUS RHYTHM PROBABLE LEFT ATRIAL ENLARGEMENT This EKG was read and contributed directly to the care of the patient Electronic Signature: NITA RUGGIERO MD 04/04/2025 19:44:44 [id number] Note* Exam Date Time Procedure Performing Provider Status 04/04/25 3:[address] Abdomen/Pelvis w/o Contrast Isaías BENSON MD; Auth (Verified) [id number] ORIGINAL EXAMINATION: CT OF THE ABDOMEN AND [...] resident's findings and interpretation. Interpreted by: Clotilde Benson MD Preliminary Report By: Noemi Salgado MD Electronically signed By Clotilde Benson MD Dictated Date: 04/04/2025 3:54:29 PM Prelim Date: 04/04/2025 4:10:13 PM Sign Date: 04/04/2025 4:10:13 PM Ordering Provider: [facility]06-02-2025 Evaluation + Plan noteExtracted from: Title:History and Physical Author:SERGEY ARTEAGA MD Date:04/04/25 Acute on chronic left-sided abdominal and flank pain. Occurred after recently catching her nephrostomy tube in a door. She has some small nephrolithiasis on CT. Urology was recommending patient follow-up with the patient's pain could be controlled. Toradol, acetaminophen as first-line. Home oxycodone second line. Dilaudid for breakthrough. Admit for observation regular floor Considering course, may have urology provide inpatient recommendations. Concern for acute urinary tract infection. Urine appears worse than prior with now 10-20 WBCs and 2+ bacteria. Large leukocyte esterase. She was recently on Cefuroxime and Bactrim. Ciprofloxacin Follow urine culture Chronic left nephrostomy tube. Appears irritated with an area of 1 x 2 cm ovoid erythema and tenderness to palpation. Mild foul-smelling drainage. In the past, palliative care was recommending that she go to [facility] urology for consideration of reconstructive surgery or nephrectomy to prevent recurrent UTIs from chronic left nephrostomy tube after prior cervical cancer. She has not yet had an appointment with them. Recommend outpatient follow-up with urology. Anxiety. Patient is on Ativan chronically for this. Continue Ativan as needed and scheduled escitalopram. Acute on chronic pain. Likely secondary to acute infection as well as nephrostomy tube irritation. Continue patient's home oxycodone. Dilaudid for breakthrough. DVT prophylaxis: SCDs Note dictated using voice recognition software and may contain typographical errors. Future Appointments Appointment Date:04/11/2025 08:45:00 AM Scheduled Provider: Location:XRAY Appointment Type:NM Kidney Diuretic Appointment Date:04/13/2025 01:00:00 PM Scheduled Provider: Location:IR Appointment Type:IR Nephrostomy Exchange Appointment Date:05/18/2025 11:20:00 AM Scheduled Provider: Location:[facility]C Appointment Type:SO OV Follow Up Future Scheduled Tests Laboratory* hCG, quantitative (AH/AM Only) 11/15/24 Radiology* IR Nephrostomy Exchange 04/13/25 * IR Nephrostomy Exchange 12/30/24 * CT Renal 03/08/25 * NM Kidney Diuretic 03/08/25 * NM Kidney Diuretic 04/11/25 [facility] 05-13-2025 Hospital Discharge instructions Patient Education 03/15/2025 18:30:11 Flank Pain, Uncertain Cause Flank Pain, Uncertain Cause The flank is the area between your upper abdomen and your back. Pain there is often caused by a problem with your kidneys. It might be a kidney infection or a kidney stone. Other causes of flank paininclude spinal arthritis, a pinched nerve from a back injury, or a back muscle strain or spasm. The cause of your flank pain is not certain. You may need other tests. Home care Follow these tips when caring for yourself at home: You may use acetaminophen or ibuprofen to control pain, unless your health care provider prescribedanother medicine. If you have chronic liver or [...] You might find that alternating ice and heatworks well. Use the method that feels the [...] worse Numbness or weakness in a leg [phone] [employer]. [address] [place] [address]. All rights reserved. This information is not intended as a substitute for professional medical care. Always follow yourhealthcare professional's instructions. Follow Up Care 03/15/2025 14:38:03 With:OLE PACE MD Address: [address] [place] [phone]- [phone] When:2-4 days [facility] 05-13-2025 Emergency department Discharge summary Discharge Instructions Thank you for allowing [facility] to assist you with your healthcare needs. The following is importantdischarge information regarding your hospital visit. What to Do Next Instructions from Your Care Team No qualifying data available. Post Acute Orders No qualifying data available. You Need to Schedule the Following Appointments Follow Up with OLE PACE MD When:Within 2-4 days Where:[address] [place] [phone] Allergies Haldol Tongue swelling Oranges Tongue swelling, [...] a kidney stone. Other causes of flank paininclude spinal arthritis, a pinched nerve from a back injury, or a back muscle strain or spasm. The cause of your flank pain is not certain. You may need other tests. Home care Follow these tips when caring for yourself at home: You may use acetaminophen or ibuprofen to control pain, unless your health care provider prescribedanother medicine. If you have chronic liver or [...] You might find that alternating ice and heatworks well. Use the method that feels the [...] worse Numbness or weakness in a leg [phone] [employer]. [address] [place] [address]. All rights reserved. This information is not intended as a substitute for professional medical care. Always follow yourhealthcare professional's instructions. Additional Information VACCINATE! IT SAVES LIVES! Members of the community who have not yet received the COVID-19 vaccine and would like to receive it can visit one of [facility] vaccine clinics. There are many vaccine clinic locations within the [facility]. For locations and available times, please visit www.gettheshot.coronavirus.[place].gov/. It is important to note that some COVID mobile vaccine clinics are held outdoors and may be canceled in rainy or stormy conditions. To learn more about pediatric vaccinations (ages 5-11), we invite you to visit the [facility] webpage. https://www.[facility].org/pages/3381-Eslrs-Vfgwdzkaehx-Ywqucgqfxx-Wdpqa-Gva stions.htmlTo learn more about the COVID-19 vaccine, we invite you to visit the CDC website for a list of frequently asked questions. https://www.cdc.gov/coronavirus/2019-ncov/vaccines/faq.html [facility] Patient Portal Access Instructions: Stay connected with your healthcare team and access your personal medical information anytime with the [employer] Patient Portal. If you would like a full copy of your medical records please contact the [facility] Medical Records Department Friday through Friday between 8a.m. and 4:30p.m. Please follow the directions below to access the portal: 1.Access the email account you provided upon registration to the [facility].2.Look for an invitation email from [facility].3.Open the email and access the invitation link: Accept Invitation to [facility]4.Fill in the required quintero to create your account. Sign into www.[employer] with your username and password that you [...] you will allow to register on the [employer] Patient Portal for access to your information. You can also access the [employer] Patient Portal on the [employer] joya. Simply click on Health Records under [employer] and then click on the [employer] logo. HOW TO SAFELY DISPOSE OF PRESCRIPTION [...] Call your local pharmacy or go to http://bit.ly/2D6Jg0w to find one close to you.3.Make use of household items: Use cat litter or old coffee grounds to dispose medications if other options arenot available. Mix your drugs with these household products, seal them in an airtight container andthrow it into the garbage. Call [facility]: [phone] to be sure your drugs can be [...] aware that I should contact my doctor. Patient/[employer] Signature: Date/Time: Relationship to Patient: Witness Name/Signature: Date/Time: [address]13-2025 Emergency department Discharge summary Discharge Instructions Thank you for allowing [facility] to assist you with your healthcare needs. The following is importantdischarge information regarding your hospital visit. What to Do Next Instructions from Your Care Team No qualifying data available. Post Acute Orders No qualifying data available. You Need to Schedule the Following Appointments Follow Up with OLE PACE MD When:Within 2-4 days Where:[address] [facility] [place] [phone]- [phone] Allergies Haldol Tongue swelling Oranges Tongue swelling, [...] a kidney stone. Other causes of flank paininclude spinal arthritis, a pinched nerve from a back injury, or a back muscle strain or spasm. The cause of your flank pain is not certain. You may need other tests. Home care Follow these tips when caring for yourself at home: You may use acetaminophen or ibuprofen to control pain, unless your health care provider prescribedanother medicine. If you have chronic liver or [...] You might find that alternating ice and heatworks well. Use the method that feels the [...] worse Numbness or weakness in a leg 7528-9139 [employer]. [address] [place] [address], [place] [address]. All rights reserved. This information is not intended as a substitute for professional medical care. Always follow yourhealthcare professional's instructions. Additional Information VACCINATE! IT SAVES LIVES! Members of the community who have not yet received the COVID-19 vaccine and would like to receive it can visit one of [facility] vaccine clinics. There are many vaccine clinic locations within the [facility]. For locations and available times, please visit www.gettheshot.coronavirus.[place].gov/. It is important to note that some COVID mobile vaccine clinics are held outdoors and may be canceled in rainy or stormy conditions. To learn more about pediatric vaccinations (ages 5-11), we invite you to visit the [facility] webpage. https://www.[facility].org/pages/4706-Ujeth-Rdzaukjnbvd-Eefxdoveuo-Gtgkl-Med stions.htmlTo learn more about the COVID-19 vaccine, we invite you to visit the CDC website for a list of frequently asked questions. https://www.cdc.gov/coronavirus/2019-ncov/vaccines/faq.html [facility] Patient Portal Access Instructions: Stay connected with your healthcare team and access your personal medical information anytime with the [employer] Patient Portal. If you would like a full copy of your medical records please contact the [facility] Medical Records Department Friday through Friday between 8a.m. and 4:30p.m. Please follow the directions below to access the portal: 1.Access the email account you provided upon registration to the hospital.2.Look for an invitation email from [facility].3.Open the email and access the invitation link: Accept Invitation to [employer]4.Fill in the required quintero to create your account. Sign into www.[email or web address] 2 Go with your username and password that you [...] you will allow to register on the [employer] Patient Portal for access to your information. You can also access the [employer] Patient Portal on the [employer] joya. Simply click on Health Records under [employer] and then click on the [employer] logo. [...] Call your local pharmacy or go to [email or web address] to find one close to you.3.Make use of household items: Use cat litter or old coffee grounds to dispose medications if other options arenot available. Mix your drugs with these household products, seal them in an airtight container andthrow it into the garbage. Call [facility]: [phone] to be sure your drugs can be [...] aware that I should contact my doctor. Patient/[employer] Signature: Date/Time: Relationship to Patient: Witness Name/Signature: Date/Time: [id number] Note* Exam Date Time Procedure Performing Provider Status 03/15/25 5:[address] Abd/Pelvis w/ IV Contrast Only RAMO CESAR RUBY DO; Auth (Verified) [id number] ORIGINAL EXAMINATION: CT OF THE ABDOMEN AND [...] nephrostomy tube in place. Interpreted by: Cesar Chen Preliminary Report By: Cesar Chen Electronically signed By Cesar Chen Dictated Date: 03/15/2025 6:02:41 PM Prelim Date: 03/15/2025 6:11:20 PM Sign Date: 03/15/2025 6:11:20 PM Ordering Provider: GUCCI [facility]05-07-2025 Hospital Discharge instructions Patient Education 03/09/2025 [...] lost, tell your healthcare provider right away. [phone] [employer]. [address] [place] [address]. All rights reserved. This information is not intended as a substitute for professional medical care. Always follow yourhealthcare professional's instructions. Follow Up Care 03/09/2025 12:12:49 With:GONZALEZ SANDERS MD, [facility] Address: [address] [place] [phone] When:2-4 days only if needed With:OLE PACE MD Address: [address] [place] [phone]- [phone] When:2-4 days [facility] 05-07-2025 Emergency department Discharge summary Discharge Instructions Thank you for allowing [facility] to assist you with your healthcare needs. The following is importantdischarge information regarding your hospital visit. Diagnosis from Today's Visit Flank pain What to Do Next Instructions from Your Care Team No qualifying data available. Post Acute Orders No qualifying data available. You Need to Schedule the Following Appointments Follow Up with GONZALEZ SANDERS MD, [facility] When:Within 2-4 days, only if needed Where:[address] [place] [phone] Follow Up with OLE PACE MD When:Within 2-4 days Where:[address] [place] [phone]- [phone] Allergies Haldol Tongue swelling Oranges Tongue swelling, [...] lost, tell your healthcare provider right away. [phone] [employer]. [address] [place] [address]. All rights reserved. This information is not intended as a substitute for professional medical care. Always follow yourhealthcare professional's instructions. Additional Information VACCINATE! IT SAVES LIVES! Members of the community who have not yet received the COVID-19 vaccine and would like to receive it can visit one of [facility] vaccine clinics. There are many vaccine clinic locations within the [facility]. For locations and available times, please visit www.gettheshot.coronavirus.[place].gov/. It is important to note that some COVID mobile vaccine clinics are held outdoors and may be canceled in rainy or stormy conditions. To learn more about pediatric vaccinations (ages 5-11), we invite you to visit the [facility] webpage. https://www.[facility].org/pages/1643-Hcbxz-Ljsxmxvmbwj-Plxynxtqgd-Datdi-Pmr stions.htmlTo learn more about the COVID-19 vaccine, we invite you to visit the CDC website for a list of frequently asked questions. https://www.cdc.gov/coronavirus/2019-ncov/vaccines/faq.html [facility] Patient Portal Access Instructions: Stay connected with your healthcare team and access your personal medical information anytime with the [employer] Patient Portal. If you would like a full copy of your medical records please contact the [facility] Medical Records Department Friday through Friday between 8a.m. and 4:30p.m. Please follow the directions below to access the portal: 1.Access the email account you provided upon registration to the [facility].2.Look for an invitation email from [facility].3.Open the email and access the invitation link: Accept Invitation to [employer]4.Fill in the required quintero to create your [...] you will allow to register on the [facility] Patient Portal for access to your information. You can also access the [employer] Patient Portal on the [employer] joya. Simply click on Health Records under HealthData and then click on the [facility] logo. [...] Call your local pharmacy or go to [email or web address] [email or web address] to find one close to you.3.Make use of household items: Use cat litter or old coffee grounds to dispose medications if other options arenot available. Mix your drugs with these household products, seal them in an airtight container andthrow it into the garbage. Call [facility]: [phone] to be sure your drugs can be [...] aware that I should contact my doctor. Patient/[employer] Signature: Date/Time: Relationship to Patient: Witness Name/Signature: Date/Time: [id number] Note* Exam Date Time Procedure Performing Provider Status 03/09/25 3:[address] Renal SCOOBY JOSE MD; Auth (Verified) [id number] ORIGINAL EXAMINATION: CT RENAL 03/09/2025 3:54 pm [...] Date: 03/09/2025 4:13:54 PM Ordering Provider: SHAHBAZ MAY [id number] Note* Exam Date Time Procedure Performing Provider Status 03/09/25 1:49 PM XR Chest 1 View MARTHA TRIVEDI MD; Auth (Verified) [id number] ORIGINAL EXAMINATION: ONE XRAY VIEW OF THE [...] Date: 03/09/2025 2:07:59 PM Ordering Provider: SHAHBAZ RIZO [id number] Evaluation + Plan noteExtracted from: Title:IR Pre-Procedure [...] 02/14/2025 and can be found in the [facility] Electronic [facility] Records ([facility]). Shantelle Herrera PA-C Interventional Radiology Pager: [phone] IR dept: [phone] Available on Semmx Future Appointments Appointment Date:03/14/2025 01:30:00 PM Scheduled Provider:OLE PACE MD Location:[place] Palliative Appointment Type:PALL OV Follow Up Appointment Date:05/18/2025 11:20:00 AM Scheduled Provider: Location:[facility]C Appointment Type:SO OV Follow Up Future Scheduled Tests Laboratory* Clostridium difficile (PCR) 03/04/24 * Ova + Parasite Exam 03/04/24 * hCG, quantitative (AH/AM Only) 11/15/24 Radiology* IR Nephrostomy Exchange 12/30/24 [facility] 04-16-2025 Hospital Discharge instructions Patient Education 02/16/2025 10:11:22 Radiology- Nephrostomy/Nephroureteral Tube Exchange 12/26/2022 (Custom) [facility] Nephrostomy/Nephroureteral Tube Exchange Discharge Instructions Interventional Radiology [facility] [address] [place] [address] The procedure that you had done today [...] the feeling of the need to urinate. Csea-qag-vacadls pain medication should be used for pain [...] may be obtained at: [facility] [address] [facility] [address] [facility] Any questions or concerns, please contact your physician or Interventional Radiology at [phone] from 8-4:30pm Friday-Friday. If you do not have a follow up appointment scheduled at the time of discharge, please call Interventional Radiology at the number listed above. Follow Up Care 12/22/2024 11:44:53 With:PINA PANTOJA Address: [address] [place] [address] [place] [address] [phone] When: Unknown Comments:Schedule appointment as soon as possible [facility] 04-16-2025 Note* Bita Frias: SIGN, AUTHOR, SIGN, AUTHOR, PERFORM Event Display: IR Procedure Record Authored Date: [id number] IR Procedure Record Summary Primary Physician: Finalized Date/Time: 02/16/25 09:07:22 Pt. Name: LALY NAVAS Austen Chapman./Sex: 1990 Female Med Rec #: [id number] Physician: Financial #: [id number] Pt. Type: S Room/Bed: [facility]0/A Admit/Disch: 02/16/25 06:14:49 - Institution: Allergies [...] Bita Frias JEFFREY MD EYRING, ERIK S APRN-CUSTOM PROTECTION OFFICER Role Performed Thread Winder Automatic 1 Anesthesiologist CUSTOM PROTECTION OFFICER Details Time In 02/16/25 08:10:00 02/16/25 08:10:00 [...] 12 mL Medication CONTRAST ISOVUE 300/30ML 10/CA [id number] Radiology Flouroscopy Fluoroscopy Used? Yes Fluoro Dose (mGy) 3 Fluoro Time 1.2 min Radiology Local Local Used? Yes Local Type: lido 2% Local Dose 3 ml Radiology Procedure Site Site/Location lt flank Site Condition No complications Suture 2.0 Ethibond Suture Dressing Type Gauze sponge 4 X 4, Bioclusive 4 X 5 Technologist Notes [id number] lt neph tube exchange Last Modified By: [...] Out Padmini Fair[place] Relevant images and Tech, Wilbur, Blaine results are properly L, Bita Frias labeled and LACHO Metz JEFFREY MD, appropriately FRED ZAYAS S displayed, Alcohol LABOR CREW SUPERVISOR-CUSTOM PROTECTION OFFICER, Marisa Gastelum based prep dry RN Instrument Sterility Team [...] Radiology - Action Plan Outcomes Met? Yes Sheet Metal Duct Installer Apprentice Marisa Gastelum RN Completing Procedure Plan Last Modified By: Bita Frias 02/16/25 08:35:44 Case Comments <None> Finalized By: Bita Frias Document Signatures Signed By: Bita Frias 02/16/25 09:05 Bita Frias 02/16/25 09:07 [facility] 04-16-2025 Summary of episode note Discharge Instructions Thank you for allowing [facility] to assist you with your healthcare needs. The following is importantdischarge information regarding your hospital visit. Your Care Team OLE PACE MD What to do next Scheduled Follow-Up Appointments Appointment Type When With Where Contact Information StatusPALL OV Follow Up 03/14/2025 01:30 PM EDT [facility] Confirmed SO OV Follow Up 05/18/2025 11:20 AM EDT [facility] [address] [place] [address] Confirmed Follow Up Appointments Follow Up with PINA PANTOJA APRN-SWING FRAME 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 Where:[address] [place] [address] [place] [address]- [phone] Additional Information: Schedule appointment as soon as [...] medication providers or retail pharmacies. [employer] [facility] Nephrostomy/Nephroureteral Tube Exchange Discharge Instructions Interventional Radiology [facility] [address] [place] [address] The procedure that you had done today [...] the feeling of the need to urinate. Ypfi-wlr-jxzsunu pain medication should be used for pain [...] the gauze. Supplies may be obtained at: [facility] [address] [facility] [address] [facility] Any questions or concerns, please contact your physician or Interventional Radiology at [phone] from 8-4:30pm Friday-Friday. If you do not have a follow up appointment scheduled at the time of discharge, please call Interventional Radiology at the number listed above. Additional Information VACCINATE! IT SAVES LIVES! Members of the community who have not yet received the COVID-19 vaccine and would like to receive it can visit one of [facility] vaccine clinics. There are many vaccine clinic locations within the [facility]. For locations and available times, please visit [email or web address].[email or web address]/. It is important to note that some COVID mobile vaccine clinics are held outdoors and may be canceled in rainy or stormy conditions. To learn more about pediatric vaccinations (ages 5-11), we invite you to visit the [employer] webpage. https://www.[employer].org/pages/8541-Jwhda-Rzcxbecbfjt-Yavxzjfvlv-Saawu-Ffi stions.htmlTo learn more about the COVID-19 vaccine, we invite you to visit the CDC website for a list of frequently asked questions.https://www.cdc.gov/coronavirus/2019-ncov/vaccines/faq.html [facility] Patient Portal Access Instructions: Stay connected with your healthcare team and access your personal medical information anytime with the [employer] [facility] [employer] [facility] Patient Portal. Please follow the directions below to create your [facility] [employer] [facility] account: 1.Access the email account you provided upon registration to the hospital/physician office.2.Look for an invitation email from [facility].3.Open the email and access the invitation link: AcceptInvitation to [employer].4.Fill in the required quintero to create your account. To access your account, visit [employer]. Click the blue button labeled Access Patient [...] who you will allowto register on the [facility] for access to your information. You can also access the [facility] on the [facility] joya. Simply click on Patient Portal and then log into your account. If you would like to receive a full copy of your medical records, please contact the [facility] Medical Records Department by calling [phone], Friday through Friday between 8 a.m. and [...] Call your local pharmacy or go to [email or web address]/[email or web address] to find one close to you.3.Make use of household items: Use cat litter or old coffee grounds to dispose medications if other options arenot available. Mix your drugs with these household products, seal them in an airtight container andthrow it into the garbage. Call [facility]: [phone] to be sure your drugs can be [...] aware that I should contact my doctor. Patient/[employer] Signature: Date/Time: Relationship to Patient: Witness Name/Signature: Date/[facility] Note* Exam Date Time Procedure Performing Provider Status 02/16/25 9:09 AM IR Nephrostomy Exchange MADELINE APARICIO; Auth (Verified) [id number] ORIGINAL PROCEDURE: 1. Percutaneous left nephrostomy tube exchange with fluoroscopy CLINICAL STATEMENT: History of cervical cancer with left ureteral obstruction TEAM TRUCK DRIVER: Tadeo Leija PA-C MATERIALS: 12 Fr X [...] using 2 identifiers, confirming site and side. Manager Army image with contrast injection demonstrates stable appearance [...] Date: 02/16/2025 4:47:28 PM Ordering Provider: [facility]04-16-2025 Note IR Procedure Record Summary Primary Physician: Finalized Date/Time: 02/16/25 09:07:22 Pt. Name: LALY NAVAS/Sex: 1990 Female Med Rec #: [id number] Physician: Financial #: [id number] Pt. Type: S Room/Bed: 0130/A Admit/Disch: 02/16/25 06:14:49 - Institution: Allergies identified in patient's electronic medical record at time of printing on 02/16/25 Entry 1 Entry 2 Entry 3 Substance Haldol Oranges penicillin Reaction Type Allergy Allergy Allergy Last Modified By: Fany Ruelas LPN, Kimberly V. RN Holt, Kimberly V. RN 11/19/23 09:39:23 07/21/23 10:11:02 07/21/23 10:10:45 Case Attendance- IR Entry 1 Entry 2 Entry 3 Case Attendee ATDEO LEIJA PA-C, Megan R Rad Leggett, Brandon [...] Bita Frias JEFFREY MD EYRING, ERIK S LABOR CREW SUPERVISOR-CUSTOM PROTECTION OFFICER Role Performed Thread Winder Automatic 1 Anesthesiologist CUSTOM PROTECTION OFFICER Details Time In 02/16/25 08:10:00 02/16/25 08:10:00 [...] 12 mL Medication CONTRAST ISOVUE 300/30ML 10/CA 513511 Radiology Flouroscopy Fluoroscopy Used? Yes Fluoro Dose (mGy) 3 Fluoro Time 1.2 min Radiology Local Local Used? Yes Local Type: lido 2% Local Dose 3 ml Radiology Procedure Site Site/Location lt flank Site Condition No complications Suture 2.0 Ethibond Suture Dressing Type Gauze sponge 4 X 4, Bioclusive 4 X 5 Technologist Notes [id number] lt neph tube exchange Last Modified By: [...] Out Padmini Fairchild Relevant images and Tech, Wilbur, Blaine results are properly L, Bita Frias labeled and LACHO Metz JEFFREY MD, appropriately FRED ZAYAS displayed, Alcohol LABOR CREW SUPERVISOR-Nirav ESPINOZA Hannah based prep dry RN Instrument Sterility Team Members Padmini Fairchild R Rad Verifying Sterility Tech Procedure IR Nephrostomy Exchange (SN) Last Modified By: Bita Frias 02/16/25 08:38:56 Skin Prep- IR Entry 1 Procedure IR Nephrostomy Exchange (SN) Skin Prep Prep Area Flank Side Left By Padmini Fairchild R Sam Prep Agents Chloraprep Tech Hair Removal Method [...] Radiology - Action Plan Outcomes Met? Yes Sheet Metal Duct Installer Apprentice Marisa Gastelum RN Completing Procedure Plan Last Modified By: Bita Frias 02/16/25 08:35:44 Case Comments Finalized By: Bita Frias Document Signatures Signed By: Bita Frias 02/16/25 09:05 Bita Frias 02/16/25 09:07 [facility]fowpvnx96-08-7725 Procedure note IR Brief Post Procedure Note [...] follow. Tadeo Leija PA-C Interventional Radiology Pager: [phone] IR dept: [id number] Available on [employer] Digitally Signed by TADEO LEIJA PA-C on 02/16/2025 09:00 AM [id number] Anesthesiology Consult note Patient: LALY NAVAS Age: [...] for anxiety, # 90 tab(s),2 Refill(s), Pharmacy: [facility] Palliative care patient THO (generalized anxiety disorder), 167.6, cm, 12/22/24 8:11:00 EST, Height, 53.6, kg, ... Lexapro 20 mg oral tablet: Dose : 20 mg = 1 tab(s), Oral, qDay, # 30 tab(s), 5 Refill(s), Pharmacy:[facility] 167.6, cm, 12/22/24 8:11:00 EST, Height, kg, 12/22/24 8:11:00 EST,Dosing Weight ondansetron 4 mg oral tablet: Dose : 4 mg = 1 tab(s), Oral, BID, TAKE ONE TABLET BY MOUTH EVERY 8 HOURS NEEDED FOR NAUSEA AND VOMITING, # 60 tab(s), 2 Refill(s), Pharmacy: [facility] 167.6, cm, 11/15/24 8:43:00 EST, Height, kg, 10/13/24 6:49:00 EST, Dosing... oxyCODONE 5 mg oral tablet ( IMMEDIATE release ): Dose : 10 mg = 2 tab(s), Oral, q6h, PRN for pain,# 240 tab(s), 0 Refill(s), Pharmacy: [facility] Cervical ca Cancer related pain, 167.6, cm, [...] Problem list: Medical Anxiety / SNOMED CT 77255132 / Confirmed Asthma / SNOMED CT 519536851 / Confirmed Decreased appetite / SNOMED CT 577909258 / Confirmed Dehydration / SNOMED CT 51561825 / Confirmed Bilateral flank pain / SNOMED CT 255292707 / Confirmed History of chemotherapy / SNOMED CT 6945907001 / Confirmed Hx of cervical cancer / SNOMED CT 3402008448 / Confirmed History of radiation therapy / SNOMED CT 3637851983 / Confirmed Hydronephrosis, left / SNOMED CT 12794233 / Confirmed Acute kidney injury / SNOMED CT 28917714 / Confirmed Left flank pain / SNOMED CT 498135858 / Confirmed Cervical cancer / SNOMED CT 084676788 / Confirmed Moderate protein-calorie malnutrition / SNOMED CT 111169159 / Confirmed Nausea and vomiting / SNOMED CT 04697833 / Confirmed Cancer related pain / SNOMED CT 7824529947 / Confirmed DVT prophylaxis / SNOMED CT 434425906 / Confirmed Palliative care encounter / SNOMED CT 031643402 / Confirmed Premature menopause / SNOMED CT 8326739837 / Confirmed Pyelonephritis / SNOMED CT 19663426 / Confirmed Nephrostomy status / SNOMED CT 590745761 / Confirmed Obstructive uropathy / SNOMED CT 45629956 / Confirmed Resolved: Chronic kidney disease, stage 3 (moderate) / SNOMED CT 6038219391 Resolved: Port-A-Cath in place / SNOMED CT 4992435735 Resolved: History of COVID-19 / SNOMED CT 3316300221 Resolved: Hydronephrosis of left kidney / SNOMED CT 15777569 Resolved: ESBL (extended spectrum beta-lactamase) producing bacteria infection / SNOMED CT 9051947285 Resolved: ESBL (extended spectrum beta-lactamase) producing bacteria infection / SNOMED CT 4706893771 Resolved: Cervicitis / SNOMED CT 838538804 Resolved: Mass of cervix / SNOMED CT 339669874 Resolved: Encounter for antineoplastic chemotherapy / SNOMED CT 965988215 Resolved: Tinnitus / SNOMED CT 378463639 Resolved: Complicated UTI (urinary tract infection) / SNOMED CT 179992329 Canceled: Cervical cancer / SNOMED CT 1585674718 Canceled: Dysuria / SNOMED CT 40285988 Canceled: Flank pain / SNOMED CT 002896275 Canceled: Hydronephrosis / SNOMED CT 25945320 Canceled: Cervical cancer / SNOMED CT 816300674 Canceled: Cervical ca / SNOMED CT 295702489 Canceled: Secondary amenorrhea / SNOMED CT 599968689 Canceled: Nephrostomy status / SNOMED CT 895418236, Active Problems (34) Acid reflux Acute kidney [...] ESBL (extended spectrum beta-lactamase) producing bacteria infection (8332814714): Onset on 02/23/2023 at 32 years. Resolved on 05/07/2023 at 32 years. ESBL (extended spectrum beta-lactamase) producing bacteria infection (3012239783): Onset on 08/09/2022 at 31 years. Resolved on 01/02/2023 at 32 years. Comments: 01/02/2023 SUMEET 10:02 JAAML Haynes Tino Removed ESBL disease alert from 08/2022 per infection control protocol on 01/02/23. Mass of cervix (672748039): Resolved. Chronic kidney disease, stage 3 (moderate) (6814706372): Resolved. Hydronephrosis of left kidney (09758344): Resolved. Cervicitis (193407210): Resolved. Encounter for antineoplastic chemotherapy (756956474): Resolved. Port-A-Cath in place (0084998444): Resolved. Tinnitus (461984176): Resolved. Complicated UTI (urinary tract infection) (151789644): Resolved. History of COVID-19 (8771324411): Resolved. Family History: Cancer Sister COPD - Chronic obstructive pulmonary disease Mother Father Kidney stone Mother Asthma Mother Breast cancer Mother Hypertension Mother Heart disease Mother Substance abuse Father Alcohol abuse Father Stroke Grandparent Father Malignant tumor of ovary Sister Heart attack Mother Diabetes Grandparent Procedure history: Nephrostomy using fluoroscopic guidance (6924725860) on 06/16/2024 at 33 Years. Comments: 06/21/2024 11:46 Fany Beard LPN left JJ stent ([id number]) on 06/16/2024 at 33 Years. Comments: 06/21/2024 11:47 Fany Beard LPN left Nephrostomy tube (204284519) on 10/05/2023 at 32 Years. Comments: 11/19/2023 9:37 Fany Sanchez LPN left side Nephrostomy with tube drainage (64550933) in the month of 07/2023 at 32 Years. Comments: 06/13/2020 10:09 JAMAL Guaman left Nephrostomy with tube drainage (86095357) on 01/10/2021 at 30 Years. Cannulation of Portacath (198876268) in 2020 at 30 Years. Comments: 06/13/2020 10:09 JAMAL Guaman right JJ stent ([id number]) on 11/15/2020 at 29 Years. Radiation (076192199) in the month of 06/2020 at 29 Years. Comments: 06/26/2020 6:12 GINNY Burton RN Mayi Jenkins via tandems and oviod X2 Cervical biopsy (93564945) in 2019 at 29 Years. Comments: 04/12/2020 18:25 Eri Conte RN pt states she had a cervical biopsy done on 04/07/2020 at [facility] for a cervical mass Tumor cells, benign (36228471) in 2001 at 11 Years. 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 done at [facility] in [place] Social History: Social & Psychosocial Habits Alcohol [...] - 08/06/2024 07:22 - JAMAL Ferrer Home/Environment 02/16/2025Risk Assessment: No Risk 02/16/2025 Living [...] Signs (last 24 hrs) Last Charted Temp Ixnjgvuy62.9 DegC (FEB 16 06:37) UWD049 mmHg (FEB 16 06:37) DBP79 mmHg (FEB 16 06:37) Measurements from flowsheet : Measurements 02/16/2025 6:37 EDT Height 167.6 cm Height in inches 66 inch(es) Admission Weight 110.7 kg Weight Lbs 243.5 lb Weight Method Actual Vina Body Weight 59.26 kg Type of Scale [...] Documentation reviewed: Current records. Assessment and Plan [employer] of Anesthesiologists (ASA) physical status classification: Class II. Anesthetic Preoperative Plan Premedication: intravenous. Anesthetic technique: General. Induction: intravenously. Maintenance airway: Oral endotracheal tube. Postoperative pain management: Per surgeon. Informed consent: signed by patient. Digitally Signed by OLE MONK MD on 02/16/2025 08:05 AM [facility]nahmiyj53-24-6469 History and physical note IR PREPROCEDURE H&P [...] 02/14/2025 and can be found in the [facility] ([employer]). Shantelle Herrera PA-C Interventional Radiology Pager: [phone] IR dept: [phone] Available on [employer]mx Digitally Signed by SHANTELLE HERRERA PA-C on 02/16/2025 07:50 AM Digitally Signed by MADELINE APARICIO MD on 02/16/2025 08:12 AM [facility]Nzbhpege84-97-8728 Hospital Discharge instructions Patient Education 12/22/2024 12:16:43 Radiology- Nephrostomy/Nephroureteral Tube Exchange 12/26/2022(CUSTOM) [place] Nephrostomy/Nephroureteral Tube Exchange Discharge Instructions Interventional Radiology [facility] [address] [place] [address] The procedure that you had done today [...] the feeling of the need to urinate. Fpqu-qyi-onpsnqn pain medication should be used for pain [...] the gauze. Supplies may be obtained at: [facility] [address] [facility] [address] Any questions or concerns, please contact your physician or Interventional Radiology at [phone] from 8-4:30pm Friday-Friday. If you do not have a follow up appointment scheduled at the time of discharge, please call Interventional Radiology at the number listed above. 12/22/2024 12:16:34 Radiology- Port Removal 08/13/2024(CUSTOM) [place] Port Removal Discharge Instructions Interventional Radiology [facility] [address] [place] [address] Your physician has requested that you have [...] for 7 days. Special instructions: PAIN CONTROL: Rdza-wpn-eudaxss pain medication should be used for pain [...] instruction below: 8:00 am- 5:00 pm call [phone] After 24 hours, contact the physician who ordered this procedure for you. Additional Instructions: Follow Up Care 12/09/2024 13:25:55 With:OLE PACE MD Address: [address] [place] [phone] When: Unknown Comments:Call with any questions or concerns [facility] 02-19-2025 Evaluation + Plan noteExtracted from: Title:Preprocedure [...] 12/13/24 and can be found in the [facility] ([facility]). Lacey Loera PA-C Interventional Radiology IR Dept [id number] Available on [employer] Future Appointments Appointment Date:01/05/2025 12:30:00 PM Scheduled Provider: Location:IR Appointment Type:IR Procedure Follow Up Appointment Date:01/17/2025 03:00:00 PM Scheduled Provider:OLE PACE MD Location:[place] Palliative Appointment Type:PALL OV Follow Up Appointment Date:02/16/2025 08:00:00 AM Scheduled Provider: Location:IR Appointment Type:IR Nephrostomy Exchange Appointment Date:05/18/2025 11:20:00 AM Scheduled Provider: Location:[facility] Appointment Type:SO OV Follow Up Future Scheduled Tests Laboratory* Clostridium difficile (PCR) 03/04/24 * Ova + Parasite Exam 03/04/24 * hCG, quantitative (AH/AM Only) 11/15/24 Radiology* IR Nephrostomy Exchange 02/16/25 * IR Procedure Follow Up 01/05/25 [facility] 02-19-2025 Summary of episode note Discharge Instructions Thank you for allowing [facility] to assist you with your healthcare needs. The following is importantdischarge information regarding your hospital visit. Your Care Team OLE PACE MD What to do next Scheduled Follow-Up Appointments Appointment Type When With Where Contact Information StatusIR Procedure Follow Up 01/05/2025 12:30 PM EST IR Confirmed PALL OV Follow Up 01/17/2025 03:00 PM EDT OLE PACE [facility] Confirmed IR Nephrostomy Exchange 02/16/2025 08:00 AM EDT IR Confirmed SO OV Follow Up 05/18/2025 11:20 AM EDT [facility] [address] [place] [phone] Confirmed Follow Up Appointments Follow Up with OLE PCAE MD Where:[address] [place] [phone] Additional Information: Call with any questions or [...] medication providers or retail pharmacies. Education Materials [place] Nephrostomy/Nephroureteral Tube Exchange Discharge Instructions Interventional Radiology [facility] [address] [facility] [address] The procedure that you had done today [...] the feeling of the need to urinate. Msvv-poc-conbbix pain medication should be used for pain [...] the gauze. Supplies may be obtained at: [facility] [address] [facility] [address] [facility] Any questions or concerns, please contact your physician or Interventional Radiology at [phone] from 8-4:30pm Friday-Friday. If you do not have a follow up appointment scheduled at the time of discharge, please call Interventional Radiology at the number listed above. [place] Port Removal Discharge Instructions Interventional Radiology [facility] [address] [place] [address] Your physician has requested that you have [...] for 7 days. Special instructions: PAIN CONTROL: Kkut-ljj-jiaohte pain medication should be used for pain [...] instruction below: 8:00 am- 5:00 pm call [phone] After 24 hours, contact the physician who ordered this procedure for you. Additional Instructions: Additional Information VACCINATE! IT SAVES LIVES! Members of the community who have not yet received the COVID-19 vaccine and would like to receive it can visit one of [facility] vaccine clinics. There are many vaccine clinic locations within the [facility]. For locations and available times, please visit [email or web address].[place].gov/. It is important to note that some COVID mobile vaccine clinics are held outdoors and may be canceled in rainy or stormy conditions. To learn more about pediatric vaccinations (ages 5-11), we invite you to visit the [facility] webpage. https://www.[facility].org/pages/9832-Tffxc-Bnomnioignk-Gfdcgnhwom-Gitlr-Gil stions.htmlTo learn more about the COVID-19 vaccine, we invite you to visit the CDC website for a list of frequently asked questions.https://www.cdc.gov/coronavirus/2019-ncov/vaccines/faq.html [employer] [facility] [employer] [facility] Patient Portal Access Instructions: Stay connected with your healthcare team and access your personal medical information anytime with the [employer] [facility] [employer] Patient Portal. Please follow the directions below to create your [employer] account: 1.Access the email account you provided upon registration to the hospital/physician office.2.Look for an invitation email from [facility].3.Open the email and access the invitation link: [facility] to [facility].4.Fill in the required quintero to create your account. To access your account, visit [email or web address]. Click the blue button labeled Access Patient [...] who you will allowto register on the [facility] Patient Portal for access to your information. You can also access the [facility] Patient Portal on the [facility] joya. Simply click on Patient Portal and then log into your account. If you would like to receive a full copy of your medical records, please contact the [facility] Medical Records Department by calling [phone], Friday through Friday between 8 a.m. and [...] Call your local pharmacy or go to http://bit.LeadGenius/[email or web address] to find one close to you.3.Make use of household items: Use cat litter or old coffee grounds to dispose medications if other options arenot available. Mix your drugs with these household products, seal them in an airtight container andthrow it into the garbage. Call [facility]: [phone] to be sure your drugs can be [...] aware that I should contact my doctor. Patient/[employer] Signature: Date/Time: Relationship to Patient: Witness Name/Signature: Date/Time: [facility]blkdbr14-23-0858 Note* Exam Date Time Procedure Performing Provider Status 12/22/24 11:11 AM IR Nephrostomy Exchange GERDA RANDHAWA DO; Auth (Verified) [id number] ORIGINAL PROCEDURE: IR NEPHROSTOMY TUBE CHANGE 12/22/2024 [...] Guidewires advanced over which previously placed 12 Chadian nephrostomy tube was exchanged for a new 12 Chadian nephrostomy tube. Tip curled within left renal [...] the procedure including risks, benefits, and alternatives. [place] protocol was observed. Sterile gowns, masks, hats and gloves utilized for maximal sterile barrier. FINDINGS: Antegrade nephrostogram demonstrates satisfactory position of previously placed left nephrostomy tube. Postprocedure images demonstrate new nephrostomy catheter with tip curled within decompressed left renal pelvis. No complication suggested. IMPRESSION: Maintenance exchange of previously placed left nephrostomy tube for new 12 Chadian nephrostomy catheter via previously established tract with tip curled in decompressed left renal pelvis. No complication suggested. Interpreted by: Clotilde Randhawa DO Preliminary Report By: Clotilde Randhawa DO Electronically signed By Clotilde Randhawa DO Dictated Date: 12/22/2024 3:54:55 PM Prelim Date: 12/22/2024 3:57:35 PM Sign Date: 12/22/2024 3:57:35 PM Ordering Provider: [facility]02-19-2025 Procedure note Date of Service INTERVENTIONAL RADIOLOGY POST PROCEDURE NOTE Pre-Procedure Diagnosis: [left nephrostomy tube maintenance exchange, iv access port removal / no further need for port] Post Procedure Diagnosis: Same. Enrolled Nurse: Dr. Clotilde Randhawa DO Procedure: [left nephrostomy [...] CLOTILDE RANDHAWA DO on 12/22/2024 11:10 AM [facility]Llnojlzq24-59-2855 Note* Exam Date Time Procedure Performing Provider Status 12/22/24 10:40 AM IR Port Removal CLOTILDE RANDHAWA DO; Auth (Verified) [id number] ORIGINAL PROCEDURE: IR REMOVAL OF TUNNELED CATHETER [...] the procedure including risks, benefits, and alternatives. [place] protocol was observed. Sterile gowns, masks, hats [...] 12/22/2024 3:59:55 PM Ordering Provider: NASRIN ISABEL [facility]Tyyjpibh87-38-1844 History and physical note IR PREPROCEDURE H&P [...] 12/13/24 and can be found in the [facility] Records ([employer]). Lacey Loera PA-C Interventional Radiology IR Dept [id number] Available on [employer] Digitally Signed by LACEY LOERA PA-C on 12/22/2024 09:52 AM Digitally Signed by CLOTILDE RANDHAWA DO on 12/22/2024 12:44 PM [facility]aenlsxk19-64-6331 Anesthesiology Consult note Patient: LALY NAVAS Age: [...] Problem list: Medical Anxiety / SNOMED CT 05550881 / Confirmed Asthma / SNOMED CT 052067165 / Confirmed Decreased appetite / SNOMED CT 791135472 / Confirmed Dehydration / SNOMED CT 71287553 / Confirmed Bilateral flank pain / SNOMED CT 458519092 / Confirmed History of chemotherapy / SNOMED CT 2794052489 / Confirmed Hx of cervical cancer / SNOMED CT 4807150548 / Confirmed History of radiation therapy / SNOMED CT 0154905082 / Confirmed Hydronephrosis, left / SNOMED CT 28041303 / Confirmed Acute kidney injury / SNOMED CT 47329706 / Confirmed Left flank pain / SNOMED CT 874499755 / Confirmed Cervical cancer / SNOMED CT 783841642 / Confirmed Moderate protein-calorie malnutrition / SNOMED CT 860808853 / Confirmed Nausea and vomiting / SNOMED CT 04182032 / Confirmed Cancer related pain / SNOMED CT 2480618961 / Confirmed DVT prophylaxis / SNOMED CT 884939815 / Confirmed Palliative care encounter / SNOMED CT 371556501 / Confirmed Premature menopause / SNOMED CT 1280045433 / Confirmed Pyelonephritis / SNOMED CT 58399514 / Confirmed Nephrostomy status / SNOMED CT 626377244 / Confirmed Obstructive uropathy / SNOMED CT 79288660 / Confirmed Resolved: Chronic kidney disease, stage 3 (moderate) / SNOMED CT 7156000746 Resolved: Port-A-Cath in place / SNOMED CT 8592704808 Resolved: History of COVID-19 / SNOMED CT 0008669857 Resolved: Hydronephrosis of left kidney / SNOMED CT 30464382 Resolved: ESBL (extended spectrum beta-lactamase) producing bacteria infection / SNOMED CT 7918792977 Resolved: ESBL (extended spectrum beta-lactamase) producing bacteria infection / SNOMED CT 1674293291 Resolved: Cervicitis / SNOMED CT 961908644 Resolved: Mass of cervix / SNOMED CT 253005812 Resolved: Encounter for antineoplastic chemotherapy / SNOMED CT 381014019 Resolved: Tinnitus / SNOMED CT 171408694 Resolved: Complicated UTI (urinary tract infection) / SNOMED CT 081258043 Canceled: Cervical cancer / SNOMED CT 8208843640 Canceled: Dysuria / SNOMED CT 55133321 Canceled: Flank pain / SNOMED CT 805974513 Canceled: Hydronephrosis / SNOMED CT 09588470 Canceled: Cervical cancer / SNOMED CT 166324430 Canceled: Cervical ca / SNOMED CT 671289219 Canceled: Secondary amenorrhea / SNOMED CT 609709368 Canceled: Nephrostomy status / SNOMED CT 039628727, Active Problems (33) Acid reflux Acute kidney [...] ESBL (extended spectrum beta-lactamase) producing bacteria infection (7143012100): Onset on 02/23/2023 at 32 years. Resolved on 05/07/2023 at 32 years. ESBL (extended spectrum beta-lactamase) producing bacteria infection (8190531035): Onset on 08/09/2022 at 31 years. Resolved on 01/02/2023 at 32 years. Comments: 01/02/2023 EST 10:02 JAMAL Haynes Removed ESBL disease alert from 08/2022 per infection control protocol on 01/02/23. Mass of cervix (626232590): Resolved. Chronic kidney disease, stage 3 (moderate) (4871030526): Resolved. Hydronephrosis of left kidney (31216887): Resolved. Cervicitis (956497357): Resolved. Encounter for antineoplastic chemotherapy (597004410): Resolved. Port-A-Cath in place (6839935104): Resolved. Tinnitus (583017402): Resolved. Complicated UTI (urinary tract infection) (002802246): Resolved. History of COVID-19 (3437900820): Resolved. Procedure history: Nephrostomy using fluoroscopic guidance (9185048874) on 06/16/2024 at 33 Years. Comments: 06/21/2024 11:46 Fany Beard LPN left JJ stent ([id number]) on 06/16/2024 at 33 Years. Comments: 06/21/2024 11:47 Fany Beard LPN left Nephrostomy tube ([id number]) on 10/05/2023 at 32 Years. Comments: 11/19/2023 9:37 Fany Sanchez LPN left side Nephrostomy with tube drainage ([id number]) in the month of 07/2023 at 32 Years. Comments: 06/13/2020 10:09 JAMAL Guaman left Nephrostomy with tube drainage (21460390) on 01/10/2021 at 30 Years. Cannulation of Portacath ([id number]) in 2020 at 30 Years. Comments: 06/13/2020 10:09 JAMAL Guaman right JJ stent ([id number]) on 11/15/2020 at 29 Years. Radiation ([id number]) in the month of 06/2020 at 29 Years. Comments: 06/26/2020 6:12 GINNY Burton RN Mayi A via tandems and oviod X2 Cervical biopsy ([id number]) in 2019 at 29 Years. Comments: 04/12/2020 18:25 Eri Conte RN pt states she had a cervical biopsy done on 04/07/2020 at [facility] for a cervical mass Tumor cells, benign ([id number]) in 2001 at 11 Years. 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 done at [facility] in [place] Social History: Social & Psychosocial Habits Alcohol [...] - 08/06/2024 07:22 - JAMAL Ferrer Home/Environment 12/22/2024Risk Assessment: No Risk 12/22/2024 Living [...] Signs (last 24 hrs) Last Charted Temp Oppzwmry36.4 DegC (DEC 22 08:08) Heart Rate ApicalL 57 bpm (DEC 22 08:08) BGQ021 mmHg (DEC 22 08:08) DBP80 mmHg (DEC 22 08:08) Measurements from flowsheet : Measurements 12/22/2024 8:08 EST Height 167.6 cm Height in inches 66 inch(es) Admission Weight 53.6 kg Weight Lbs 117.9 lb Vina Body Weight 59.26 kg Admission Body Mass [...] Documentation reviewed: Current records. Assessment and Plan Indian Society of Anesthesiologists (ASA) physical status classification: Class III. Anesthetic Preoperative Plan Premedication: intravenous. Anesthetic technique: General. Induction: intravenously. Maintenance airway: Oral endotracheal tube. Postoperative pain management: Per surgeon. Risks discussed: nausea, vomiting, sore throat, dental injury, hypotension, allergic reaction, serious complications. Informed consent: signed by patient. Digitally Signed by NOEMI AYALA MD on 12/22/2024 09:03 AM [id number] Discharge instructions Patient Education 08/11/2024 12:13:30 Radiology- Nephrostomy/Nephroureteral Tube Exchange 12/26/2022(CUSTOM) [place] Nephrostomy/Nephroureteral Tube Exchange Discharge Instructions Interventional Radiology [facility] [address] [place] [address] The procedure that you had done today [...] the feeling of the need to urinate. Jxyo-yxc-eyerxzi pain medication should be used for pain [...] the gauze. [facility]: [facility] [address] [facility] [address] [facility] Any questions or concerns, please contact your physician or Interventional Radiology at [phone] from 8-4:30pm Friday-Friday. If you do not have a follow up appointment scheduled at the time of discharge, please call Interventional Radiology at the number listed above. [facility] 10-09-2024 Evaluation + Plan noteExtracted from: Title:IR [...] 07/19/2024 and can be found in the [facility] ([facility]). Sky Newsome PA-C Interventional Radiology Pager: [phone] IR dept: x [phone] Available on Semmx Future Appointments Appointment Date:08/16/2024 09:00:00 AM Scheduled Provider:OLE PACE MD Location:[place] Palliative Appointment Type:PALL OV Follow Up Future Scheduled Tests Laboratory* Clostridium difficile (PCR) 03/04/24 * Ova + Parasite Exam 03/04/24 Radiology* IR Nephrostomy Tube Change Lt Guide 09/04/23 [facility] 10-09-2024 Note* Juana Wilhelm RN: SIGN, AUTHOR, SIGN, AUTHOR, PERFORM Event Display: IR Procedure Record Authored Date: [id number] IR Procedure Record Summary Primary Physician: Finalized Date/Time: 08/11/24 10:35:27 Pt. Name: LALY NAVAS/Sex: 1990 Female Med Rec #: [id number] Physician: Financial #: [id number] Pt. Type: S Room/Bed: [facility] Admit/Disch: 08/11/24 07:53:56 - Institution: Allergies identified [...] Case Attendee GARTH GOSS MD, Blaine Sim, Avokia Grace Role Performed Procedure Surgeon Scrub Technologist [...] Case Attendee Juana Wilhelm RN, ADAM A APRN-CUSTOM PROTECTION OFFICER Role Performed Procedure Nurse CUSTOM PROTECTION OFFICER Details Time In 08/11/24 09:58:00 08/11/24 09:58:00 Time Out 08/11/24 10:40:00 08/11/24 10:40:00 Procedure/Preference IR Nephrostomy Exchange IR Nephrostomy Exchange Card (SN) (SN) Last Modified By: Juana Wilhelm RN, Erin N RN 08/11/24 10:31:51 08/11/24 10:31:51 Radiology Procedures- IR Entry 1 Procedure/Preference IR Nephrostomy Exchange Actual Procedure IR NEPH TUBE CHANGE Card (SN) Primary Procedure Yes Primary Surgeon GARTH GSOS MD Anesthesia/Sedation General Type Additional Procedure Times [...] - IR Signed By: GARTH GOSS MD 08/11/24 10:34 Allergy Information- IR Entry [...] Radiology - Action Plan Outcomes Met? 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 The following is importantdischarge information regarding your hospital visit. Your Care Team OLE PACE MD What to do next Scheduled Follow-Up Appointments Appointment Type When With Where Contact Information StatusPALL OV Follow Up 08/16/2024 09:00 AM EDT OLE PACE MD [facility] Confirmed Allergies Haldol Tongue swelling [...] medication providers or retail pharmacies. Education Materials [place] Nephrostomy/Nephroureteral Tube Exchange Discharge Instructions Interventional Radiology [facility] [address] [place] [address] The procedure that you had done today [...] the feeling of the need to urinate. Dhon-ciu-ohrhpxr pain medication should be used for pain [...] the gauze. Supplies may be obtained at: [facility] [address] [facility] [address] [facility] Any questions or concerns, please contact your physician or Interventional Radiology at [phone] from 8-4:30pm Friday-Friday. If you do not have a follow up appointment scheduled at the time of discharge, please call Interventional Radiology at the number listed above. Additional Information VACCINATE! IT SAVES LIVES! Members of the community who have not yet received the COVID-19 vaccine and would like to receive it can visit one of [facility] vaccine clinics. There are many vaccine clinic locations within the [facility]. For locations and available times, please visit [email or web address] It is important to note that some COVID mobile vaccine clinics are held outdoors and may be canceled in rainy or stormy conditions. To learn more about pediatric vaccinations (ages 5-11), we invite you to visit the [facility] webpage. [email or web address].[email or web address]/pages/[email or web address]-Lqdff-Qetuzspxsrl-Dypylscjvk-[email or web address]-Dlw stions.htmlTo learn more about the COVID-19 vaccine, we invite you to visit the CDC website for a list of frequently asked questions.https://www.cdc.gov/coronavirus/2019-ncov/vaccines/faq.html [employer] Patient Portal Access Instructions: Stay connected with your healthcare team and access your personal medical information anytime with the [employer] Patient Portal. Please follow the directions below to create your [employer] account: 1.Access the email account you provided upon registration to the hospital/physician office.2.Look for an invitation email from [facility].3.Open the email and access the invitation link: AcceptInvitation to [employer].4.Fill in the required quintero to create your account. To access your account, visit [employer]. Click the blue button labeled Access Patient [...] who you will allowto register on the [facility] [employer] Patient Portal for access to your information. You can also access the [facility] on the [facility] [employer] joya. Simply click on Patient Portal and then log into your account. If you would like to receive a full copy of your medical records, please contact the [facility] Medical Records Department by calling [phone], Friday through Friday between 8 a.m. and [...] Call your local pharmacy or go to [email or web address] to find one close to you.3.Make use of household items: Use cat litter or old coffee grounds to dispose medications if other options arenot available. Mix your drugs with these household products, seal them in an airtight container andthrow it into the garbage. Call [facility]: [phone] to be sure your drugs can be [...] aware that I should contact my doctor. Patient/[employer] Signature: Date/Time: Relationship to Patient: Witness Name/Signature: Date/Time: [facility]1060 Note ORIGINAL HISTORY: ORDERING SYSTEM PROVIDED HISTORY: Reason for Exam: cervical caner PROCEDURE: 1. Nephrostomy tube exchange under fluoroscopy LATERALITY: Left TEAM TRUCK DRIVER: Dr. Goss Resident: Dr. English MATERIALS: 12 Fr drainage catheter Amplatz [place] Port bag Raymond catheter ANESTHESIA: General anaesthesia. INTRASERVICE TIME (min): [...] sterilely prepped and draped. Time out performed. Manager Army image demonstrates stable appearance of the nephrostomy [...] Sign Date: 08/11/2024 5:39:17 PM Ordering Provider: [facility]10-09[facility]24 Note IR Procedure Record Summary Primary Physician: Finalized Date/Time: 08/11/24 10:35:27 Pt. Name: LALY NAVAS./Sex: 1990 Female Med Rec #: [id number] Physician: Financial #: [id number] Pt. Type: S Room/Bed: [facility] Admit/Disch: 08/11/24 07:53:56 - Institution: Allergies identified [...] Attendee GARTH GOSS MD, Brandon L Allen, Jet Engine Mechanic Grace Role Performed Procedure Surgeon Scrub Technologist [...] Case Attendee Juana Wilhelm RN, ADAM A APRN-CUSTOM PROTECTION OFFICER Role Performed Procedure Nurse CUSTOM PROTECTION OFFICER Details Time In 08/11/24 09:58:00 08/11/24 09:58:00 [...] - IR Signed By: GARTH GOSS MD 08/11/24 10:34 Allergy Information- IR Entry [...] Time Out Blaine Scanlon, Relevant images and Angela, Jet Engine Mechanic Grace, results are properly Juana Wilhelm RN labeled and appropriately displayed, Alcohol based prep dry, Double verification of sterility indicators complete Instrument Sterility Team Members GARTH GOSS MD, Verifying Sterility CapoChristianon L Procedure IR Nephrostomy Exchange (SN) Last Modified [...] Radiology - Action Plan Outcomes Met? Yes Sheet Metal Duct Installer Apprentice Juana Wilhelm RN Completing Procedure Plan Last Modified By: Juana Wilhelm RN 08/11/24 09:41:12 Case Comments Finalized By: Juana Wilhelm RN Document Signatures Signed By: Juana Wilhelm RN 08/11/24 10:35 Juana Wilhelm RN 08/11/24 10:35 [facility]lysspcc41[facility]-6696 History and physical note IR PREPROCEDURE H&P [...] 07/19/2024 and can be found in the [facility] ([facility]). Sky Newsome PA-C Interventional Radiology Pager: [phone] IR dept: x [phone] Available on Semmx Digitally Signed by SKY NEWSOME PA-C on 08/11/2024 09:39 AM [id number] Anesthesiology Consult note Patient: LALY NAVAS Age: [...] for further details Acid reflux (controlled with krvr-pwl-uypsfrh Pepto), anxiety, asthma, bradycardia, cervical cancer, cervicitis, [...] Problem list: Medical Anxiety / SNOMED CT 50046128 / Confirmed Asthma / SNOMED CT 059883675 / Confirmed Decreased appetite / SNOMED CT 845287442 / Confirmed Dehydration / SNOMED CT 64293468 / Confirmed Port-A-Cath in place / SNOMED CT 1109839200 / Confirmed Bilateral flank pain / SNOMED CT 880115406 / Confirmed History of chemotherapy / SNOMED CT 5672380600 / Confirmed Hx of cervical cancer / SNOMED CT 4424363976 / Confirmed History of radiation therapy / SNOMED CT 6698211232 / Confirmed Hydronephrosis, left / SNOMED CT 47228526 / Confirmed Acute kidney injury / SNOMED CT 54374773 / Confirmed Left flank pain / SNOMED CT 803826454 / Confirmed Cervical cancer / SNOMED CT 866704946 / Confirmed Moderate protein-calorie malnutrition / SNOMED CT 950389807 / Confirmed Nausea and vomiting / SNOMED CT 17979577 / Confirmed Cancer related pain / SNOMED CT 5458701405 / Confirmed DVT prophylaxis / SNOMED CT 841004485 / Confirmed Palliative care encounter / SNOMED CT 425337531 / Confirmed Premature menopause / SNOMED CT 1169374217 / Confirmed Pyelonephritis / SNOMED CT 87144538 / Confirmed Nephrostomy status / SNOMED CT 795715626 / Confirmed Obstructive uropathy / SNOMED CT 11247914 / Confirmed, Active Problems (32) Acid reflux [...] ESBL (extended spectrum beta-lactamase) producing bacteria infection (6829339295): Onset on 02/23/2023 at 32 years. Resolved on 05/07/2023 at 32 years. ESBL (extended spectrum beta-lactamase) producing bacteria infection (0364290915): Onset on 08/09/2022 at 31 years. Resolved on 01/02/2023 at 32 years. Comments: 01/02/2023 EST 10:02 SUMEET - JAMAL Pantoja Removed ESBL disease alert from 08/2022 per infection control protocol on 01/02/23. Mass of cervix (549756061): Resolved. Chronic kidney disease, stage 3 (moderate) (4897963244): Resolved. Hydronephrosis of left kidney (13621927): Resolved. Cervicitis (112772374): Resolved. Encounter for antineoplastic chemotherapy (854598786): Resolved. Tinnitus (974979942): Resolved. Complicated UTI (urinary tract infection) (989328095): Resolved. History of COVID-19 (6669492074): Resolved. Family History: Cancer Sister COPD - Chronic obstructive pulmonary disease Mother Kidney stone Mother Asthma Mother Breast cancer Mother Hypertension Mother Heart disease Mother Substance abuse Father Alcohol abuse Father Stroke Grandparent Father Heart attack Mother Diabetes Grandparent Procedure history: Nephrostomy using fluoroscopic guidance (3912548988) on 06/16/2024 at 33 Years. Comments: 06/21/2024 11:46 Fany Beard LPN left JJ stent ([id number]) on 06/16/2024 at 33 Years. Comments: 06/21/2024 11:47 Fany Beard LPN left Nephrostomy tube (395411606) on 10/05/2023 at 32 Years. Comments: 11/19/2023 9:37 Fany Sanchez LPN left side Nephrostomy with tube drainage (50853139) in the month of 07/2023 at 32 Years. Comments: 06/13/2020 10:09 JAMAL Guaman left Nephrostomy with tube drainage (96127898) on 01/10/2021 at 30 Years. Cannulation of Portacath (466584110) in 2020 at 30 Years. Comments: 06/13/2020 10:09 JAMAL Guaman right JJ stent ([id number]) on 11/15/2020 at 29 Years. Radiation (918801434) in the month of 06/2020 at 29 Years. Comments: 06/26/2020 6:12 GINNY Burton RN Mayi A via tandems and oviod X2 Cervical biopsy (69400959) in 2019 at 29 Years. Comments: 04/12/2020 18:25 Eri Conte RN pt states she had a cervical biopsy done on 04/07/2020 at [facility] for a cervical mass Tumor cells, benign (67663668) in 2001 at 11 Years. 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 done at [facility] in [place] Social History: Social & Psychosocial Habits Alcohol 08/11/2024isk Assessment: Denies Alcohol Use 08/11/2024 Use: Past Type: Beer Frequency: 1-2 times per week Employment/School 07/19/2024 Status: Employed Substance Abuse 08/11/2024 Assessment: Denies Substance Abuse 08/11/2024 Use: Current [...] - 08/06/2024 07:22 - JAMAL Ferrer Home/Environment 08/11/2024 Assessment: No Risk 08/11/2024 Living situation: Home/Independent [...] Signs (last 24 hrs) Last Charted Temp Pkrchzrt24.6 DegC (AUG 11 08:31) Heart Rate Fhcpzk00 bpm (AUG 11 08:31) MHS153 mmHg (AUG 11 08:) DBP78 mmHg (AUG 11 08:31) Measurements from flowsheet : Measurements 08/11/2024 8:31 EDT Height 163.8 cm Height in inches 64.5 inch(es) Admission Weight 59.5 kg Weight Lbs 130.9 lb Weight Method Actual Vina Body Weight 55.82 kg Type of Scale [...] Weight Lbs 130.9 lb Weight Method Actual Vina Body Weight 55.82 kg Type of Scale [...] no difficulties Skin Temperature Warm Skin Description Combined Locks Skin Integrity Intact IV Present Present Neurological [...] Designated Person #1 We May Share PHI Didier Navas [phone] Designated Person #1 Relationship Father Designated Person #2 We May Share PHI [phone] Designated Person #2 Relationship Sibling Additional Designated [...] No Advanced Directives Yes Advance Directive Type [place] Declaration (Living Will) Advance Directive Location Indicates [...] after midnight, No makeup, No jewelry, Responsible Libertarian, Aware of surgery location, Instructed to bring home medications Individuals Taught Patient Learning Readiness Willing to learn Barriers to Learning None evident Teaching Method Explanation, Printed materials Preferred Spoken Language Mongolian Preferred Written Language Mongolian Family/Caregiver Prefer Spoken Language Mongolian Family/Caregiver Prefer Written Language Mongolian Teaching Evaluation Verbalizes/Nonverbally indicates understanding Safety Brochure Information Reviewed Yes [facility] Video Viewed No Information Given by Patient [...] 1,000 mL mL . Assessment and Plan Indian Society of Anesthesiologists (ASA) physical status classification: [...] NAYELI BRICE DO on 08/11/2024 09:33 AM [id number] Evaluation + Plan note Future Appointments Appointment Date:08/11/2024 10:00:00 AM Scheduled Provider: Location:IR Appointment Type:IR Nephrostomy Exchange Appointment Date:08/16/2024 09:00:00 AM Scheduled Provider:OLE PACE MD Location:[place] Palliative Appointment Type:PALL OV Follow Up Future Scheduled Tests Laboratory* Clostridium difficile (PCR) 03/04/24 * Ova + Parasite Exam 03/04/24 Radiology* IR Nephrostomy Exchange 08/11/24 * IR Nephrostomy Tube Change Lt Guide 09/04/23 [facility] 09-24-2024 Interventional radiology Progress note The patient was notified via phone her next neph tube exchange in IR with anesthesia is scheduled for Wed 08/11 arrival at 0800 same day surgery. The patient was also notified her pre test appointmentis scheduled for 08/04 at 9am. The patient confirmed and verbalized understanding. Digitally Signed by JAMAL Coleman on 07/27/2024 11:32 AM [facility]Temezctr63-45-1813 NoteORIGINAL PROCEDURE: Nephrostogram with left percutaneous nephrostomy [...] in the usual sterile fashion. A fluoroscopic byproducts supervisor image was obtained demonstrating the expected position [...] Sign Date: 06/14/2024 2:56:33 PM Ordering Provider: [facility] ([place])06-09-2024 Evaluation + Plan noteExtracted from: Title:IR Pre-Procedure [...] 05/24/24 and can be found in the [facility] ([facility]). Milagro Mcgarry PA-C Interventional Radiology IR Dept [id number] Available on [facility] Aware Future Appointments Appointment Date:06/21/2024 11:30:00 AM Scheduled Provider:OLE PACE MD Location:[place] Palliative Appointment Type:PALL OV Follow Up Future Scheduled Tests Laboratory* Clostridium difficile (PCR) 03/04/24 * Ova + Parasite Exam 03/04/24 Radiology* IR Nephrostomy Exchange 06/09/24 * IR Nephrostomy Tube Change Lt Guide 09/04/23 [facility] 08-07-2024 Hospital Discharge instructions Patient Education 06/09/2024 11:02:59 Radiology- Nephrostomy/Nephroureteral Tube Exchange 12/26/2022(CUSTOM) [place] Nephrostomy/Nephroureteral Tube Exchange Discharge Instructions Interventional Radiology [facility] [address] [place] [address] The procedure that you had done today [...] the feeling of the need to urinate. Pgxs-pmp-ldxzqcl pain medication should be used for pain [...] the gauze. Supplies may be obtained at: [facility] [address] [facility] [address] [facility] Any questions or concerns, please contact your physician or Interventional Radiology at [phone] from 8-4:30pm Friday-Friday. If you do not have a follow up appointment scheduled at the time of discharge, please call Interventional Radiology at the number listed above. 06/09/2024 11:02:47 1- [facility] General Discharge Guidelines (07/18/2023) (CUSTOM) VANESSA [...] Care 06/07/2024 11:54:07 With:JULIAN ISABEL MD Address: [address] [place] [address] [place] [address] [phone] When: Unknown Comments:Call the office to schedule a follow up appointment if not already done. [facility] 08-07-2024 Note* Cristina Simons RN: SIGN, AUTHOR, SIGN, AUTHOR, PERFORM Event Display: IR Procedure Record Authored Date: [id number] IR Procedure Record Summary Primary Physician: VIRAL MANUEL MD Finalized Date/Time: 06/09/24 09:42:49 Pt. Name: ANTONELLALALY /Sex: 1990 Female Med Rec #: [id number] Physician: Financial #: [id number] Pt. Type: S Room/Bed: [facility]/A Admit/Disch: 06/09/24 05:55:56 - Institution: Allergies identified [...] RN Role Performed Primary Surgeon Assisting Surgeon Thread Winder Automatic 1 Details Time In 06/09/24 08:45:00 06/09/24 08:45:00 06/09/24 08:18:00 Time Out 06/09/24 09:22:00 06/09/24 09:22:00 06/09/24 09:38:00 Procedure/Preference IR Nephrostomy Exchange IR Nephrostomy Exchange IR Nephrostomy Exchange Card (SN) (SN) (SN) Last Modified By: Cristina Simons RN, Tracie N RN Aller, Tracie N RN 06/09/24 09:42:01 06/09/24 09:42:01 06/09/24 09:42:01 Entry 4 Entry 5 Entry 6 Case Attendee Padmini Fairchild, DENISE Mariee LABOR CREW SUPERVISOR-CUSTOM PROTECTION OFFICER Role Performed Scrub Technologist Circulating Technologist CUSTOM PROTECTION OFFICER Details Time In 06/09/24 08:18:00 06/09/24 08:18:00 [...] 65 mL Medication CONTRAST ISOVUE 300/30ML 10/[place] 512358 Radiology Flouroscopy Fluoroscopy Used? Yes Fluoro Dose [...] Winters G, labeled and Padmini Fairchild appropriately Tech, DENISE MONROY displayed, Alcohol LABOR CREW SUPERVISOR-CUSTOM PROTECTION OFFICER based prep dry, Double verification of sterility [...] Radiology - Action Plan Outcomes Met? Yes Sheet Metal Duct Installer Apprentice Cristina Simons RN Completing Procedure Plan Last Modified By: Cristina Simons RN 06/09/24 08:51:45 Case Comments <None> Finalized By: Cristina Simons RN Document Signatures Signed By: Cristina Simons RN 06/09/24 09:42 Cristina Simons RN 06/09/24 09:42 [facility] 08-07-2024 Summary of episode note Discharge Instructions Thank you for allowing [facility] to assist you with your healthcare needs. The following is importantdischarge information regarding your hospital visit. Your Care Team OTHER, PROVIDER NOT SPECIFIED What to do next Scheduled Follow-Up Appointments Appointment Type When With Where Contact Information StatusPALL OV Follow Up 06/21/2024 11:30 AM OLE MATUTE MD [facility] Confirmed Follow Up Appointments Follow Up with JULIAN ISABEL MD Where:[address] [facility] [place] [address]- [phone] Additional Information: Call the office to schedule [...] cervical cancer Unchanged potassium chloride (Potassium Chloride (Kyw-Xfls-Vei M20) 20 mEq oral tablet, extended release) [...] medication providers or retail pharmacies. Education Materials [place] Nephrostomy/Nephroureteral Tube Exchange Discharge Instructions Interventional Radiology [facility] [address] [place] [address] The procedure that you had done today [...] the feeling of the need to urinate. Lbhn-ats-xfljawi pain medication should be used for pain [...] the gauze. Supplies may be obtained at: [facility] [address] [facility] [address] [facility] Any questions or concerns, please contact your physician or Interventional Radiology at [phone] from 8-4:30pm Friday-Friday. If you do not [...] to receive it can visit one of [facility] vaccine clinics. There are many vaccine clinic locations within the [facility]. For locations and available times, please visit [email or web address] It is important to note that some COVID mobile vaccine clinics are held outdoors and may be canceled in rainy or stormy conditions. To learn more about pediatric vaccinations (ages 5-11), we invite you to visit the [facility] webpage. https://www.[facility].org/pages/6150-Czpdb-Vpnyydhwtjn-Jhklvslizz-Gebbk-Jgw stions.htmlTo learn more about the COVID-19 vaccine, we invite you to visit the CDC website for a list of frequently asked questions.https://www.cdc.gov/coronavirus/2019-ncov/vaccines/faq.html [facility] Patient Portal Access Instructions: Stay connected with your healthcare team and access your personal medical information anytime with the [facility] Patient Portal. Please follow the directions below to create your [employer] account: 1.Access the email account you provided upon registration to the hospital/physician office.2.Look for an invitation email from [facility].3.Open the email and access the invitation link: AcceptInvitation to [facility].4.Fill in the required quintero to create your account. To access your account, visit [employer]/LOC&ALLhart. Click the blue button labeled Access Patient Portal and then log in with the username and password that you created in the steps above. You will be able to view your test results, lab results, a summary of your visits, upcoming appointments and more. There is also a convenient messaging option where you can send secure messages to your [employer] PFvider. In addition, you will have the ability to download any documents or summaries to your computer and/or send the information securely to a physician. Remember that your healthcare information is confidential, so carefully consider who you will allowto register on the [facility] Patient Portal for access to your information. You can also access the [facility] Patient Portal on the [facility] joya. Simply click on Patient Portal and then log into your account. If you would like to receive a full copy of your medical records, please contact the [facility] Records Department by calling [phone], Friday through Friday between 8 a.m. and [...] Call your local pharmacy or go to http://bit.LeadGenius/9C4Hi7x to find one close to you.3.Make use of household items: Use cat litter or old coffee grounds to dispose medications if other options arenot available. Mix your drugs with these household products, seal them in an airtight container andthrow it into the garbage. Call [facility]: [phone] to be sure your drugs can be [...] Materials Radiology- Nephrostomy/Nephroureteral Tube Exchange 12/26/2022(CUSTOM) 1- [facility] General Discharge Guidelines (07/18/2023) (CUSTOM) Medication Leaflets My discharge plan and instructions have been reviewed and explained to me and IANTONELLA RACHAEL L understand my current condition and have read and understand these discharge instructions. I have received a written copy of the plan/instructions. If I have questions, I am aware that I should contact my doctor. Patient/[employer] Signature: Date/Time: Relationship to Patient: Witness Name/Signature: Date/Time: [facility]252 Note IR Procedure Record Summary Primary Physician: VIRAL MANUEL MD Finalized Date/Time: 06/09/24 09:42:49 Pt. Name: ANTONELLALALY/Sex: 1990 Female Med Rec #: [id number] Physician: Financial #: [id number] Pt. Type: S Room/Bed: [facility]/A Admit/Disch: 06/09/24 05:55:56 - Institution: Allergies identified [...] RN Role Performed Primary Surgeon Assisting Surgeon Thread Winder Automatic 1 Details Time In 06/09/24 08:45:00 06/09/24 08:45:00 06/09/24 08:18:00 Time Out 06/09/24 09:22:00 06/09/24 09:22:00 06/09/24 09:38:00 Procedure/Preference IR Nephrostomy Exchange IR Nephrostomy Exchange IR Nephrostomy Exchange Card (SN) (SN) (SN) Last Modified By: Cristina Simons RN, Tracie N RN Aller, Tracie N RN 06/09/24 09:42:01 06/09/24 09:42:01 06/09/24 09:42:01 Entry 4 Entry 5 Entry 6 Case Attendee Padmini Fairchild, DENISE Mariee LABOR CREW SUPERVISOR-CUSTOM PROTECTION OFFICER Role Performed Scrub Technologist Circulating Technologist CUSTOM PROTECTION OFFICER Details Time In 06/09/24 08:18:00 06/09/24 08:18:00 [...] EBL 2 mL Last Modified By: Cristina iSmons RN 06/09/24 09:24:43 Radiology Procedure Details - IR Entry 1 Radiology Sedation Case Times Sedation Total Time 0 minutes Radiology - Fluid/Drainage Radiology Contrast Contrast Used? Yes Dose 65 mL Medication CONTRAST ISOVUE 300/30ML 10/CA 061811 Radiology Flouroscopy Fluoroscopy Used? Yes Fluoro Dose [...] Winters G, labeled and Padmini Fairchild appropriately Tech, DENISE MONROY displayed, Alcohol LABOR CREW SUPERVISOR-CUSTOM PROTECTION OFFICER based prep dry, Double verification of sterility [...] Radiology - Action Plan Outcomes Met? Yes Sheet Metal Duct Installer Apprentice Cristina Simons RN Completing Procedure Plan Last Modified By: Cristina Simons RN 06/09/24 08:51:45 Case Comments Finalized By: Cristina Simons RN Document Signatures Signed By: Cristina Simons RN 06/09/24 09:42 Cristina Simons RN 06/09/24 09:42 [facility] History and physical note IR PREPROCEDURE H&P [...] 05/24/24 and can be found in the [facility] ([facility]). Milagro Mcgarry PA-C Interventional Radiology IR Dept [id number] Available on Care Aware Digitally Signed by MILAGRO MCGARRY PA-C on 06/09/2024 07:59 AM Digitally Signed by VIRLA MANUEL MD on 06/09/2024 08:34 AM [facility]ubhwisu31-11-7957 Anesthesiology Consult note Patient: LALY NAVAS Age: [...] pain, 120 tab(s), 0 Refill(s) Potassium Chloride (Jyz-Jqcw-Zqn M20) 20 mEq oral tablet, extended release: [...] Problem list: Medical Anxiety / SNOMED CT 83675753 / Confirmed Asthma / SNOMED CT 292217588 / Confirmed Decreased appetite / SNOMED CT 636679303 / Confirmed Dehydration / SNOMED CT 37539659 / Confirmed Port-A-Cath in place / SNOMED CT 1068593274 / Confirmed Bilateral flank pain / SNOMED CT 203948576 / Confirmed History of chemotherapy / SNOMED CT 8270381215 / Confirmed Hx of cervical cancer / SNOMED CT 0929111644 / Confirmed History of radiation therapy / SNOMED CT 9621108806 / Confirmed Hydronephrosis, left / SNOMED CT 36085386 / Confirmed Acute kidney injury / SNOMED CT 94683705 / Confirmed Left flank pain / SNOMED CT 024813661 / Confirmed Cervical cancer / SNOMED CT 634610742 / Confirmed Moderate protein-calorie malnutrition / SNOMED CT 403681985 / Confirmed Nausea and vomiting / SNOMED CT 38014705 / Confirmed Cancer related pain / SNOMED CT 5046063948 / Confirmed DVT prophylaxis / SNOMED CT 268704946 / Confirmed Palliative care encounter / SNOMED CT 838439169 / Confirmed Premature menopause / SNOMED CT 1103043804 / Confirmed Pyelonephritis / SNOMED CT 14789321 / Confirmed Nephrostomy status / SNOMED CT 532047980 / Confirmed Complicated UTI (urinary tract infection) / SNOMED CT 100974467 / Confirmed Obstructive uropathy / SNOMED CT 63287408 / Confirmed, Active Problems (28) Acute kidney [...] ESBL (extended spectrum beta-lactamase) producing bacteria infection (7609967747): Onset on 02/23/2023 at 32 years. Resolved on 05/07/2023 at 32 years. ESBL (extended spectrum beta-lactamase) producing bacteria infection (4758016335): Onset on 08/09/2022 at 31 years. Resolved on 01/02/2023 at 32 years. Comments: 01/02/2023 EST 10:02 JAMAL Haynes Removed ESBL disease alert from 08/2022 per infection control protocol on 01/02/23. Mass of cervix (558695174): Resolved. Chronic kidney disease, stage 3 (moderate) (7406173596): Resolved. Hydronephrosis of left kidney (63635268): Resolved. Cervicitis (510116540): Resolved. Encounter for antineoplastic chemotherapy (744401042): Resolved. Tinnitus (029800391): Resolved. History of COVID-19 (7299248388): Resolved. Family History: Cancer Sister COPD - Chronic obstructive pulmonary disease Mother Kidney stone Mother Asthma Mother Breast cancer Mother Hypertension Mother Heart disease Mother Substance abuse Father Alcohol abuse Father Stroke Grandparent Father Heart attack Mother Diabetes Grandparent Procedure history: Nephrostomy tube (744105847) on 10/05/2023 at 32 Years. Comments: 11/19/2023 9:37 Fany Sanchez LPN left side Nephrostomy with tube drainage (36662996) in the month of 07/2023 at 32 Years. Comments: 06/13/2020 10:09 JAMAL Guaman left Nephrostomy with tube drainage (71971701) on 01/10/2021 at 30 Years. Cannulation of Portacath (343514498) in 2020 at 30 Years. Comments: 06/13/2020 10:09 JAMAL Guaman right JJ stent (8279524337) on 11/15/2020 at 29 Years. Radiation (638458366) in the month of 06/2020 at 29 Years. Comments: 06/26/2020 6:12 JAMAL Braswell via tandems and oviod X2 Cervical biopsy (97883838) in 2019 at 29 Years. Comments: 04/12/2020 18:25 Eri Conte RN pt states she had a cervical biopsy done on 04/07/2020 at [facility] for a cervical mass Tumor cells, benign (94146640) in 2001 at 11 Years. 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 done at [facility] in [place] Social History: Social & Psychosocial Habits Alcohol 06/09/2024 Assessment: Denies Alcohol Use 06/09/2024 Use: Past Type: Beer Frequency: 1-2 times per week Employment/School 05/24/2024 Status: Employed Substance Abuse 06/09/2024 Use: Never 06/09/2024 Assessment: Denies Substance Abuse Tobacco 06/09/2024 Tobacco [...] treatment: None Ready to change: Yes Home/Environment 06/09/2024 Assessment: No Risk 06/09/2024 Living situation: Home/Independent Safe place to go: Yes Financial concerns: No Domestic Concerns None Lives In Mobile home Current Home Treatments None Special Services and Community Resources None Marital Status of Patient if Patient Independent Adult: Unmarried Nutrition/Health 06/09/2024 Type of diet: Regular Appetite Fair Eating Difficulties None Caffeine intake amount: 1 can pop per day 06/09/2024isk Assessment: No Risk 06/09/2024 Type of diet: [...] Signs (last 24 hrs) Last Charted Temp Jjcpprwm45.4 DegC (JUN 09 06:46) YBU621 mmHg (JUN 09 06:46) DBPH 90 mmHg (JUN 09 06:46) BMI21.18 (JUN 09 06:48) Measurements from flowsheet : Measurements 06/09/2024 6:48 EDT Body Mass Index 21.18 kg/m2 06/09/2024 6:46 EDT Height 167.6 cm Height in inches 66 inch(es) Admission Weight 59.5 kg Weight Lbs 130.9 lb Weight Method Actual Vina Body Weight 59.26 kg Type of Scale [...] Documentation reviewed: Current records. Assessment and Plan [employer] Society of Anesthesiologists (ASA) physical status classification: [...] HILDA HADDAD MD on 06/09/2024 09:02 AM [facility]glflmtn56-63-9656 Note. MICRO - Microbiology PROCEDURE: Blood Culture [...] Locations *1: This test was performed at: [address], [address] [place] [address])05-23-2024 Note. MICRO - Microbiology PROCEDURE: Blood Culture [...] Locations *1: This test was performed at: [address], [address] [place], [place] [address]32404-14-2024 NoteORIGINAL PROCEDURE: Percutaneous left nephrostomy tube exchange with fluoroscopy CLINICAL STATEMENT: History of cervical cancer with left hydronephrosis TEAM TRUCK DRIVER: Tadeo Leija PA-C MATERIALS: 10 Fr X [...] using 2 identifiers, confirming site and side. Manager Army image with contrast injection demonstrates stable appearance [...] Sign Date: 04/14/2024 5:53:55 PM Ordering Provider: [facility]04-14-2024 Hospital Discharge instructions Patient Education 04/14/2024 14:01:07 Radiology- Nephrostomy/Nephroureteral Tube Exchange 12/26/2022(CUSTOM) [place] Nephrostomy/Nephroureteral Tube Exchange Discharge Instructions Interventional Radiology [facility] [address] [place] [address] The procedure that you had done today [...] the feeling of the need to urinate. Pmjy-spn-nbwppaa pain medication should be used for pain [...] the gauze. Supplies may be obtained at: [facility] [address] [facility] [address] [facility] Any questions or concerns, please contact your physician or Interventional Radiology at [phone] from 8-4:30pm Friday-Friday. If you do not have a follow up appointment scheduled at the time of discharge, please call Interventional Radiology at the number listed above. 04/14/2024 14:00:43 1- [facility] General Discharge Guidelines (07/18/2023) (CUSTOM) VANESSA SAME [...] Care 03/10/2024 10:15:11 With:OLE PACE MD Address: [address] [place] [phone] [phone] When: Unknown Comments:Follow-up as scheduled [facility] 06-12-2024 Note* Dustin Palm RN: SIGN, AUTHOR, PERFORM Event Display: IR Procedure Record Authored Date: IR Procedure Record Summary Primary Physician: Finalized Date/Time: 04/14/24 13:19:12 Pt. Name: LALY NAVAS D.O.B./Sex: 1990 Female Med Rec #: [id number] Physician: Financial #: [id number] Pt. Type: S Room/Bed: 0110/A Admit/Disch: 04/14/24 [...] Entry 3 Case Attendee TADEO LEIJA PA-C, Jet Engine MechanicKarolina Bonner Role Performed Radiology PA/RA Scrub Technologist Circulating [...] 5 Case Attendee Dustin Palm RN, JACKSON APRN-CUSTOM PROTECTION OFFICER Role Performed Thread Winder Automatic 1 CUSTOM PROTECTION OFFICER Details Time In 04/14/24 12:44:00 04/14/24 12:44:00 [...] site marked, Present for Time Out Sandi Jet Engine MechanicMendel Fortune Relevant images and Moi Jenkins Jacque M., results are properly Dustin Palm RN, labeled and BREANN BRAVO appropriately LABOR CREW SUPERVISOR-CUSTOM PROTECTION OFFICER displayed, Alcohol based prep dry Instrument Sterility [...] Radiology - Action Plan Outcomes Met? Yes Sheet Metal Duct Installer Apprentice Dustin Palm RN Completing Procedure Plan Last Modified By: Dustin Palm RN 04/14/24 12:53:11 Case Comments <None> Finalized By: Dustin Palm RN Document Signatures Signed By: Dustin Palm RN 04/14/24 13:18 [facility] 06-12-2024 Procedure note IR Brief Post Procedure Note Preprocedure Dx: cervical cancer with hydronephrosis Post Procedure Dx: Same Procedure: LEFT nephrostomy tube exchange Anesthesia: MAC and Local EBL: Minimal Complications: None Status: Unchanged Findings: 1. Successful LEFT nephrostomy tube exchange. Plan: 1. Attached to dependent drainage bag. Full report to follow. Orders in [employer]. Tadeo Leija PA-C Interventional Radiology Pager: [phone] IR dept: [id number] Available on [employer] Digitally Signed by TADEO LEIJA PA-C on 04/14/2024 02:50 PM [facility]qayzdw15-45-2893 Summary of episode note Discharge Instructions Thank you for allowing [facility] to assist you with your healthcare needs. The following is importantdischarge information regarding your hospital visit. Your Care Team OTHER, PROVIDER NOT SPECIFIED What to do next Scheduled Follow-Up Appointments Appointment Type When With Where Contact Information StatusSO OV Follow Up 04/19/2024 11:00 AM EDT [facility] [address] [place] [phone] Confirmed PALL OV Follow Up 04/28/2024 11:30 AM EDT OLE PACE MD [facility] Confirmed Follow Up Appointments Follow Up with OLE PACE MD Where:[address] [place] [address] [place] [address]- [phone] Additional Information: Follow-up as scheduled Allergies Haldol [...] medication providers or retail pharmacies. Education Materials [place] Nephrostomy/Nephroureteral Tube Exchange Discharge Instructions Interventional Radiology [facility] [address] [place] [address] The procedure that you had done today [...] the feeling of the need to urinate. Yqpu-lae-pksrsfv pain medication should be used for pain [...] the gauze. Supplies may be obtained at: [facility] [address] [facility] [address] [facility] Any questions or concerns, please contact your physician or Interventional Radiology at [phone] from 8-4:30pm Friday-Friday. If you do not [...] to receive it can visit one of [facility] vaccine clinics. There are many vaccine clinic locations within the [facility]. For locations and available times, please visit [email or web address]/. It is important to note that some COVID mobile vaccine clinics are held outdoors and may be canceled in rainy or stormy conditions. To learn more about pediatric vaccinations (ages 5-11), we invite you to visit the [employer] webpage. https://www.[employer].org/pages/4450-Ssbsu-Nmavuubsgjq-Jwrlchwjqe-Lhcza-Gkv stions.htmlTo learn more about the COVID-19 vaccine, we invite you to visit the CDC website for a list of frequently asked questions.https://www.cdc.gov/coronavirus/2019-ncov/vaccines/faq.html [facility] Patient Portal Access Instructions: Stay connected with your healthcare team and access your personal medical information anytime with the [facility] Patient Portal. Please follow the directions below to create your [employer] account: 1.Access the email account you provided upon registration to the hospital/physician office.2.Look for an invitation email from [facility].3.Open the email and access the invitation link: AcceptInvitation to [facility].4.Fill in the required quintero to create your account. To access your account, visit [email or web address]. Click the blue button labeled Access Patient [...] who you will allowto register on the [facility] [employer] Patient Portal for access to your information. You can also access the [facility] Patient Portal on the [facility] joya. Simply click on Patient Portal and then log into your account. If you would like to receive a full copy of your medical records, please contact the [facility] Records Department by calling [phone], Friday through Friday between 8 a.m. and [...] Call your local pharmacy or go to http://StubHub/2Q0Yd9q to find one close to you.3.Make use of household items: Use cat litter or old coffee grounds to dispose medications if other options arenot available. Mix your drugs with these household products, seal them in an airtight container andthrow it into the garbage. Call [facility]: [phone] to be sure your drugs can be [...] aware that I should contact my doctor. Patient/[employer] Signature: Date/Time: Relationship to Patient: Witness Name/Signature: Date/Time: [facility]Wokowchd96-73-1602 Evaluation + Plan noteExtracted from: Title:IR Pre-Procedure [...] Ready to change: Yes. Physical Exam Vitals: Vahkkohkxum25.2 (11:36) Systolic Blood Puzokbcn367 (11:36) Diastolic Blood Gfobjpfy64 (11:36) Pulse79 (11:36) QqS413 (11:36) Respiratory RateNo result General: Alert, cooperative. The remainder of the physical exam is noncontributory. Labs Anticoagulation Labs No qualifying data available. No qualifying data available. Assessment/Treatment Plan Image Guided LEFT Nephrostomy Tube Exchange with possible intervention Post Procedure Discharge Plan Patient to be discharged home. Milagro Mcgarry PA-C Interventional Radiology Pager [phone] IR Dept [id number] Available on Care Aware Future Appointments Appointment Date:04/19/2024 11:00:00 AM Scheduled Provider: Location:[facility] Appointment Type:SO OV Follow Up Appointment Date:04/28/2024 11:30:00 AM Scheduled Provider:OLE PACE MD Location:[place] [facility] Appointment Type:PALL OV Follow Up Future Scheduled Tests Laboratory* Clostridium difficile (PCR) 03/04/24 * Ova + Parasite Exam 03/04/24 Radiology* IR Nephrostomy Tube Change Lt Guide 09/04/23 [facility] 06-12-2024 Note IR Procedure Record Summary Primary Physician: Finalized Date/Time: 04/14/24 13:19:12 Pt. Name: LALY NAVAS/Sex: 1990 Female Med Rec #: [id number] Physician: Financial #: [id number] Pt. Type: S Room/Bed: 0110/A Admit/Disch: 04/14/24 [...] Entry 3 Case Attendee TADEO LEIJA PA-C, Jet Engine Mechanic Karolina Reyes Role Performed Radiology PA/RA Scrub [...] 5 Case Attendee Dustin Palm RN, JACKSON LABOR CREW SUPERVISOR-CUSTOM PROTECTION OFFICER Role Performed Thread Winder Automatic 1 CUSTOM PROTECTION OFFICER Details Time In 04/14/24 12:44:00 04/14/24 12:44:00 [...] site marked, Present for Time Out Sandi Jet Engine MechanicMendel Fortune Relevant images and Moi Jenkins Jacque M., results are properly Dustin Palm RN, labeled and BREANN BRAVO appropriately LABOR CREW SUPERVISOR-CUSTOM PROTECTION OFFICER displayed, Alcohol based prep dry Instrument Sterility Procedure IR Nephrostomy Exchange (SN) Last Modified By: Dustin Palm RN 04/14/24 12:52:45 Skin Prep- IR Entry 1 Procedure IR Nephrostomy Exchange (SN) Skin Prep Prep Area Flank Side Left By Sandi Avokia Devika A Prep Agents Chloraprep Hair Removal Method [...] Radiology - Action Plan Outcomes Met? Yes Sheet Metal Duct Installer Apprentice Dustin Palm RN Completing Procedure Plan Last Modified By: Dustin Palm RN 04/14/24 12:53:11 Case Comments Finalized By: Dustin Palm RN Document Signatures Signed By: Dustin Palm RN 04/14/24 13:18 [facility]Eakwbhur36-55-6922 Note ORIGINAL PROCEDURE: Percutaneous left nephrostomy tube exchange with fluoroscopy CLINICAL STATEMENT: History of cervical cancer with left hydronephrosis TEAM TRUCK DRIVER: Tadeo Leija PA-C MATERIALS: 10 Fr X [...] using 2 identifiers, confirming site and side. Manager Army image with contrast injection demonstrates stable appearance [...] Sign Date: 04/14/2024 5:53:55 PM Ordering Provider: [facility]06-12-2024 History and physical note Interventional Radiology Focused [...] Ready to change: Yes. Physical Exam Vitals: Pazmggljsue23.2 (11:36) Systolic Blood Bryvnpzr324 (11:36) Diastolic Blood Jbwzqcyw52 (11:36) Pulse79 (11:36) VdU888 (11:36) Respiratory RateNo result General: Alert, cooperative. The remainder of the physical exam is noncontributory. Labs Anticoagulation Labs No qualifying data available. No qualifying data available. Assessment/Treatment Plan Image Guided LEFT Nephrostomy Tube Exchange with possible intervention Post Procedure Discharge Plan Patient to be discharged home. Milagro Mcgarry PA-C Interventional Radiology Pager [phone] Dept [id number] Available on Care Aware Digitally Signed by MILAGRO MCGARRY PA-C on 04/14/2024 12:38 PM Digitally Signed by VIRAL MANUEL MD on 04/14/2024 03:28 PM [facility]jqqmku42-24-6286 Anesthesiology Consult note Patient: LALY NAVAS Age: [...] Problem list: Medical Anxiety / SNOMED CT 26761832 / Confirmed Asthma / SNOMED CT 781206669 / Confirmed Decreased appetite / SNOMED CT 652366143 / Confirmed Dehydration / SNOMED CT 06266413 / Confirmed Port-A-Cath in place / SNOMED CT 0201210191 / Confirmed Bilateral flank pain / SNOMED CT 422934596 / Confirmed History of chemotherapy / SNOMED CT 5658500596 / Confirmed Hx of cervical cancer / SNOMED CT 4693958093 / Confirmed History of radiation therapy / SNOMED CT 8286478436 / Confirmed Hydronephrosis, left / SNOMED CT 85127922 / Confirmed Acute kidney injury / SNOMED CT 16111600 / Confirmed Left flank pain / SNOMED CT 596693537 / Confirmed Cervical cancer / SNOMED CT 682599715 / Confirmed Moderate protein-calorie malnutrition / SNOMED CT 027818575 / Confirmed Nausea and vomiting / SNOMED CT 33326993 / Confirmed Cancer related pain / SNOMED CT 1952515612 / Confirmed DVT prophylaxis / SNOMED CT 597209989 / Confirmed Palliative care encounter / SNOMED CT 454890124 / Confirmed Premature menopause / SNOMED CT 5448364733 / Confirmed Pyelonephritis / SNOMED CT 01905536 / Confirmed Nephrostomy status / SNOMED CT 590688459 / Confirmed Complicated UTI (urinary tract infection) / SNOMED CT 716908410 / Confirmed Obstructive uropathy / SNOMED CT 02402612 / Confirmed, Active Problems (28) Acute kidney [...] ESBL (extended spectrum beta-lactamase) producing bacteria infection (1644777827): Onset on 02/23/2023 at 32 years. Resolved on 05/07/2023 at 32 years. ESBL (extended spectrum beta-lactamase) producing bacteria infection (7774344075): Onset on 08/09/2022 at 31 years. Resolved on 01/02/2023 at 32 years. Comments: 01/02/2023 EST 10:02 JAMAL Haynes Removed ESBL disease alert from 08/2022 per infection control protocol on 01/02/23. Mass of cervix (612291120): Resolved. Chronic kidney disease, stage 3 (moderate) (0004668864): Resolved. Hydronephrosis of left kidney (01189706): Resolved. Cervicitis (343794888): Resolved. Encounter for antineoplastic chemotherapy (942206293): Resolved. Tinnitus (781543827): Resolved. History of COVID-19 (4841100031): Resolved. Procedure history: Nephrostomy tube (256920180) on 10/05/2023 at 32 Years. Comments: 11/19/2023 9:37 Fany Sanchez WILDLIFE REFUGE SPECIALIST left side Nephrostomy with tube drainage (06204228) in the month of 07/2023 at 32 Years. Comments: 06/13/2020 10:09 JAMAL Guaman left Nephrostomy with tube drainage (97001464) on 01/10/2021 at 30 Years. Cannulation of Portacath (552164815) in 2020 at 30 Years. Comments: 06/13/2020 10:09 JAMAL Guaman right JJ stent ([id number]) on 11/15/2020 at 29 Years. Radiation (574154220) in the month of 06/2020 at 29 Years. Comments: 06/26/2020 6:12 JAMAL Braswell A via tandems and oviod X2 Cervical biopsy (36439000) in 2019 at 29 Years. Comments: 04/12/2020 18:25 Eri Conte RN pt states she had a cervical biopsy done on 04/07/2020 at [facility] for a cervical mass Tumor cells, benign (94968531) in 2002 at 11 Years. 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 done at [facility] in [place] Social History: Social & Psychosocial Habits Alcohol 03/04/2024 Assessment: Denies Alcohol Use 03/04/2024 Use: Past Type: Beer Frequency: 1-2 times per week Employment/School 03/04/2024 Status: Employed Substance Abuse 03/04/2024 Use: Never 03/04/2024 Assessment: Denies Substance Abuse Tobacco 03/04/2024 Tobacco [...] intake amount: 1 can pop per day 03/04/2024isk Assessment: No Risk 03/04/2024 Type of diet: [...] records, Reviewed prior records. Assessment and Plan Indian Society of Anesthesiologists (ASA) physical status classification: [...] DAVID SMITH MD on 04/14/2024 01:24 PM [id number] NoteORIGINAL PROCEDURE: Percutaneous nephrostomy tube exchange with fluoroscopy CLINICAL STATEMENT: Left nephrostomy tube exchange, routine LATERALITY: LEFT TEAM TRUCK DRIVER: Lacey Loera PA-C MATERIALS: 10 Fr X [...] using 2 identifiers, confirming site and side. Manager Army image with contrast injection demonstrates stable appearance [...] tube change. Procedure was performed by Lacey Loera PA-C Interpreted by: Madeline Aparicio MD Preliminary Report By: Lacey Loera PA-C Electronically signed By Madeline Aparicio MD Dictated Date: 03/03/2024 3:46:39 PM Prelim Date: 03/03/2024 3:48:09 PM Sign Date: 03/04/2024 9:14:43 AM Ordering Provider: [facility] ([place]03-[place]-2024 Hospital Discharge instructions Patient Education 03/03/2024 14:38:37 Radiology- Nephrostomy/Nephroureteral Tube Exchange 12/26/2022(CUSTOM) [place] Nephrostomy/Nephroureteral Tube Exchange Discharge Instructions Interventional Radiology [facility] [address] [place] [address] The procedure that you had done today [...] the feeling of the need to urinate. Lpik-nmt-rrjrroy pain medication should be used for pain [...] the gauze. Supplies may be obtained at: [facility] [address] [facility] [address] [facility] Any questions or concerns, please contact your physician or Interventional Radiology at [phone] from 8-4:30pm Friday-Friday. If you do not have a follow up appointment scheduled at the time of discharge, please call Interventional Radiology at the number listed above. 03/03/2024 14:38:26 1- [facility] General Discharge Guidelines (07/18/2023) (CUSTOM) VANESSA [...] 02/19/2024 13:58:52 With:MADELINE APARICIO MD, [facility] Address: [address] [place] [address] [facility] [place] [address]- [phone] When: Unknown Comments:Follow-up as scheduled [facility] 05-01-2024 History and physical note IR PREPROCEDURE [...] 02/04/2024 and can be found in the [facility] Electronic [facility] Records ([employer]). Lacey Loera PA-C Interventional Radiology IR Dept [id number] Available on [employer] Digitally Signed by LACEY LOERA PA-C on 03/03/2024 03:54 PM [id number] Note* Cristina Simons RN: SIGN, AUTHOR, PERFORM Event Display: IR Procedure Record Authored Date: IR Procedure Record Summary Primary Physician: LACEY LOERA PA-C Finalized Date/Time: 03/03/24 13:42:51 Pt. Name: LALY NAVAS/Sex: 1990 Female Med Rec #: [id number] Physician: Financial #: [id number] Pt. Type: S Room/Bed: [facility]/A Admit/Disch: 03/03/24 10:48:31 - Institution: Allergies identified [...] RYAN L Aller, Tracie N RN PA-C LABOR CREW SUPERVISOR-CUSTOM PROTECTION OFFICER Role Performed Primary Surgeon CUSTOM PROTECTION OFFICER Thread Winder Automatic 1 Details Time In 03/03/24 13:33:00 03/03/24 13:10:00 03/03/24 13:29:00 Time Out 03/03/24 13:39:00 03/03/24 13:46:00 03/03/24 13:46:00 Procedure/Preference IR Nephrostomy Exchange IR Nephrostomy Exchange IR Nephrostomy Exchange Card (SN) (SN) (SN) Last Modified By: Cristina Simons RN, Tracie N RN Cristina Simons RN 03/03/24 13:40:25 03/03/24 13:40:25 03/03/24 13:40:25 Entry 4 Entry 5 Case Attendee Padmini Fairchild Rad Angela, Jet Engine Mechanic Grace Tech Role Performed Scrub Technologist Circulating Technologist Details Time In 03/03/24 13:10:00 03/03/24 13:10:00 Time Out 03/03/24 13:46:00 03/03/24 13:46:00 Procedure/Preference IR Nephrostomy Exchange IR Nephrostomy Exchange Card (SN) (SN) Last Modified By: Cristina Simons RN Cristina Simons RN 03/03/24 13:40:25 03/03/24 13:40:25 Radiology Procedures- [...] 6 mL Medication CONTRAST ISOVUE 300/30ML 10/CA 233746 Radiology Flouroscopy Fluoroscopy Used? Yes Fluoro Dose [...] Gurinder, labeled and Padmini Vargas Tech, appropriately Angela Jet Engine Mechanic Grace displayed, Alcohol based prep dry, Double [...] Radiology - Action Plan Outcomes Met? Yes Sheet Metal Duct Installer Apprentice Cristina Simons RN Completing Procedure Plan Last Modified By: Cristina Simons RN 03/03/24 13:35:19 Case Comments <None> Finalized By: Cristina Simons RN Document Signatures Signed By: Cristina Simons RN 03/03/24 13:42 [facility] 05-01-2024 Summary of episode note Discharge Instructions Thank you for allowing [facility] to assist you with your healthcare needs. The following is importantdischarge information regarding your hospital visit. What to do next Scheduled Follow-Up Appointments Appointment Type When With Where Contact InformationTelephone 03/04/2024 09:30 AM EDT OLE PACE MD Palliative Care SO OV Follow Up 04/07/2024 03:20 PM EDT [facility] [address] [facility] [place] [address] Follow Up Appointments Follow Up with MADELINE APARICIO MD, [facility] When Why: Follow-up as scheduled Where: [address] [place] [address] [facility] [place] [address]- [phone] The Following Activity and Diet Have Been [...] medication providers or retail pharmacies. Education Materials [facility] Nephrostomy/Nephroureteral Tube Exchange Discharge Instructions Interventional Radiology [facility] [place] [address] The procedure that you had done today [...] the feeling of the need to urinate. Bfkx-gto-hfjxuuu pain medication should be used for pain [...] the gauze. Supplies may be obtained at: [facility] [address] [facility] [address] [facility] Any questions or concerns, please contact your physician or Interventional Radiology at [phone] from 8-4:30pm Friday-Friday. If you do not [...] to receive it can visit one of [facility] vaccine clinics. There are many vaccine clinic locations within the State. For locations and available times, please visit [email or web address] It is important to note that some COVID mobile vaccine clinics are held outdoors and may be canceled in rainy or stormy conditions. To learn more about pediatric vaccinations (ages 5-11), we invite you to visit the [facility] webpage. [email or web address] learn more about the COVID-19 vaccine, we invite you to visit the CDC website for a list of frequently asked questions.https://www.cdc.gov/coronavirus/2019-ncov/vaccines/faq.html [facility] Patient Portal Access Instructions: Stay connected with your healthcare team and access your personal medical information anytime with the [facility] Patient Portal. Please follow the directions below to create your [facility] account: 1.Access the email account you provided upon registration to the hospital/physician office.2.Look for an invitation email from [facility].3.Open the email and access the invitation link: AcceptInvitation to [employer].4.Fill in the required quintero to create your account. To access your account, visit [employer]. Click the blue button labeled Access Patient [...] who you will allowto register on the [facility] Patient Portal for access to your information. You can also access the [facility] Patient Portal on the [employer] joya. Simply click on Patient Portal and then log into your account. If you would like to receive a full copy of your medical records, please contact the [facility] Medical Records Department by calling [phone], Friday through Friday between 8 a.m. and [...] Call your local pharmacy or go to [email or web address] to find one close to you.3.Make use of household items: Use cat litter or old coffee grounds to dispose medications if other options arenot available. Mix your drugs with these household products, seal them in an airtight container andthrow it into the garbage. Call [facility]: [phone] to be sure your drugs can be [...] aware that I should contact my doctor. Patient/[employer] Signature: Date/Time: Relationship to Patient: Witness Name/Signature: Date/Time: [id number] Evaluation + Plan noteExtracted from: Title:Preprocedure HP [...] 02/04/2024 and can be found in the [facility] Records ([facility]). Lacey Loera PA-C Interventional Radiology IR Dept [id number] Available on [employer] Future Appointments Appointment Date:03/04/2024 09:30:00 AM Scheduled Provider:OLE PACE MD Location:[facility] Appointment Type:Telephone Appointment Date:04/07/2024 03:20:00 PM Scheduled Provider: Location:[facility] Appointment Type:SO OV Follow Up Future Scheduled Tests Radiology* IR Nephrostomy Tube Change Lt Guide 09/04/23 [facility] 05-01-2024 Note IR Procedure Record Summary Primary Physician: LACEY LOERA PA-C Finalized Date/Time: 03/03/24 13:42:51 Pt. Name: LALY NAVAS Austen Mittal/Sex: 1990 Female Med Rec #: [id number] Physician: Financial #: [id number] Pt. Type: S Room/Bed: [facility]/A Admit/Disch: 03/03/24 10:48:31 - Institution: Allergies identified [...] RYAN L Aller, Tracie N RN PA-C LABOR CREW SUPERVISOR-CUSTOM PROTECTION OFFICER Role Performed Primary Surgeon CUSTOM PROTECTION OFFICER Thread Winder Automatic 1 Details Time In 03/03/24 13:33:00 03/03/24 13:10:00 03/03/24 13:29:00 Time Out 03/03/24 13:39:00 03/03/24 13:46:00 03/03/24 13:46:00 Procedure/Preference IR Nephrostomy Exchange IR Nephrostomy Exchange IR Nephrostomy Exchange Card (SN) (SN) (SN) Last Modified By: Cristina Simons RN, Tracie N RN Aller, Tracie N RN 03/03/24 13:40:25 03/03/24 13:40:25 03/03/24 13:40:25 Entry 4 Entry 5 Case Attendee Padmini Fairchild Rad Tech Donna Tech Role Performed Scrub Technologist Circulating Technologist [...] 6 mL Medication CONTRAST ISOVUE 300/30ML 10/CA 425839 Radiology Flouroscopy Fluoroscopy Used? Yes Fluoro Dose [...] Out KIMBERLEY, CESAR GARCIA Relevant images and LABOR CREW SUPERVISOR-Kristyn ESPINOZA, results are properly Cristina Hitchcock RN, Gurinder, johnny and Padmini Vargas Tech, appropriately Sam Sim [...] Radiology - Action Plan Outcomes Met? Yes Sheet Metal Duct Installer Apprentice Cristina Simons RN Completing Procedure Plan Last Modified By: Cristina Simons RN 03/03/24 13:35:19 Case Comments Finalized By: Cristina Simons RN Document Signatures Signed By: Cristina Simons RN 03/03/24 13:42 [facility]Scawjsye02-12-8292 Anesthesiology Consult note Patient: LALY NAVAS Age: [...] Problem list: Medical Anxiety / SNOMED CT 01404973 / Confirmed Asthma / SNOMED CT 510140257 / Confirmed Decreased appetite / SNOMED CT 577075170 / Confirmed Dehydration / SNOMED CT 80703699 / Confirmed Port-A-Cath in place / SNOMED CT 3938049240 / Confirmed Bilateral flank pain / SNOMED CT 486441833 / Confirmed History of chemotherapy / SNOMED CT 1399659529 / Confirmed Hx of cervical cancer / SNOMED CT 4657268122 / Confirmed History of radiation therapy / SNOMED CT 2019717965 / Confirmed Hydronephrosis, left / SNOMED CT 32608419 / Confirmed Acute kidney injury / SNOMED CT 71444424 / Confirmed Left flank pain / SNOMED CT 138854518 / Confirmed Cervical cancer / SNOMED CT 752416425 / Confirmed Moderate protein-calorie malnutrition / SNOMED CT 144163682 / Confirmed Nausea and vomiting / SNOMED CT 41222804 / Confirmed Cancer related pain / SNOMED CT 6840280889 / Confirmed DVT prophylaxis / SNOMED CT 531612508 / Confirmed Palliative care encounter / SNOMED CT 793252742 / Confirmed Premature menopause / SNOMED CT 0826983555 / Confirmed Pyelonephritis / SNOMED CT 17166327 / Confirmed Nephrostomy status / SNOMED CT 027902848 / Confirmed Complicated UTI (urinary tract infection) / SNOMED CT 299863416 / Confirmed Obstructive uropathy / SNOMED CT 82656183 / Confirmed, Active Problems (28) Acute kidney [...] ESBL (extended spectrum beta-lactamase) producing bacteria infection (6465981984): Onset on 02/23/2023 at 32 years. Resolved on 05/07/2023 at 32 years. ESBL (extended spectrum beta-lactamase) producing bacteria infection (6799624332): Onset on 08/09/2022 at 31 years. Resolved on 01/02/2023 at 32 years. Comments: 01/02/2023 EST 10:02 JAMAL Haynes Removed ESBL disease alert from 08/2022 per infection control protocol on 01/02/23. Mass of cervix (832428860): Resolved. Chronic kidney disease, stage 3 (moderate) (0698683538): Resolved. Hydronephrosis of left kidney (88897677): Resolved. Cervicitis (782042344): Resolved. Encounter for antineoplastic chemotherapy (222439270): Resolved. Tinnitus (004340263): Resolved. History of COVID-19 (4282046308): Resolved. Family History: Cancer Sister COPD - Chronic obstructive pulmonary disease Mother Kidney stone Mother Asthma Mother Breast cancer Mother Hypertension Mother Heart disease Mother Substance abuse Father Alcohol abuse Father Stroke Grandparent Father Heart attack Mother Diabetes Grandparent Procedure history: Nephrostomy tube (961165992) on 10/05/2023 at 32 Years. Comments: 11/19/2023 9:37 Fany Sanchez LPN left side Nephrostomy with tube drainage (42332303) in the month of 07/2023 at 32 Years. Comments: 06/13/2020 10:09 JAMAL Guaman left Nephrostomy with tube drainage (49165367) on 01/10/2021 at 30 Years. Cannulation of Portacath (827622422) in 2020 at 30 Years. Comments: 06/13/2020 10:09 JAMAL Guaman right JJ stent ([id number]) on 11/15/2020 at 29 Years. Radiation (755580776) in the month of 06/2020 at 29 Years. Comments: 06/26/2020 6:12 GINNY Burton RN Mayi A via tandems and oviod X2 Cervical biopsy (55864920) in 2019 at 29 Years. Comments: 04/12/2020 18:25 Eri Conte RN pt states she had a cervical biopsy done on 04/07/2020 at [facility] for a cervical mass Tumor cells, benign (39909427) in 2001 at 11 Years. 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 done at [facility] in [place] Social History Social & Psychosocial Habits Alcohol [...] treatment: None Ready to change: Yes Home/Environment 03/03/2024isk Assessment: No Risk 03/03/2024 Domestic Concerns None [...] mmHg Diastolic Blood Pressure Non-Invasive 97 mmHg CO Vital Signs(last 24 hrs) Last Charted HPG203 mmHg (MARCH 03 11:18) DBPH 97mmHg (MARCH 03 11:18) Measurements from flowsheet : Measurements 03/03/2024 11:18 EDT Height 167.6 cm Height in inches 66 inch(es) Admission Weight 59.5 kg Weight Lbs 130.9 lb Weight Method Actual Vina Body Weight 59.26 kg Type of Scale [...] Musculoskeletal No tenderness. Integumentary: Intact, Warm, Dry, Combined Locks. Neurologic: Alert, Oriented. Review / Management Results review: No qualifying data available , Lab results 03/03/2024 11:22 EDT SN - Preop - CTm Pt Ready for OR/Proced 03/03/2024 11:21 03/03/2024 11:21 EDT Individuals Taught Patient Learning Readiness Willing to learn Barriers to Learning None evident Teaching Method Explanation, Printed materials Preferred Spoken Language Mongolian Preferred Written Language Mongolian General Infection Prevention Strategies Hand hygiene Surgical Site Infection Prevention SSI FAQ provided Infection Prevention Teaching Evaluation Verbalizes/Nonverbally indicates understanding Pre Procedure/Surgery Education Appropriate expectations, Bring glasses, hearing aids, contact lenscase, Date/Time of procedure/surgery, Hospital gown requirement worn to OR, Leave valuables, jewelry, wedding ring at home, Meds to take or hold, NPO, 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 for 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, Surgical skin prep Procedure/Surgical [...] Weight Lbs 130.9 lb Weight Method Actual Vina Body Weight 59.26 kg Type of Scale [...] Quadrants Present Skin Temperature Warm Skin Description Combined Locks, Normal for ethnicity, Dry Skin Integrity Intact [...] Jewelry removed Belongings At Bedside Cell phone, Call Worker Person, Pants, Rings, Shirt, Shoes, Undergarments Last Fluid Intake 03/02/2024 23:30 Last Food Intake 03/02/2024 19:00 Last Void 03/03/2024 11:18 03/03/2024 11:14 EDT SN - Preop - CTm Pt in SDS Room 03/03/2024 11:13 03/03/2024 11:14 EDT Designated Person #1 We May Share PHI Designated Person #1 We May Share PHI Designated Person #1 Relationship Sibling Designated Person #2 We May Share PHI [id number] Designated Person #2 Relationship Sibling Additional Designated [...] evident Teaching Method Demonstration Preferred Spoken Language Mongolian Preferred Written Language Mongolian Teaching Evaluation Verbalizes/Nonverbally indicates understanding Safety Brochure Information Reviewed Yes [facility] Video Viewed Previously viewed Information [...] Day Patient History . Assessment and Plan Indian Society of Anesthesiologists (ASA) physical status classification: [...] and wishes to proceed with anesthesia. neg [facility] . Digitally Signed by MIRANDA ARMENDARIZ on 03/03/2024 12:57 PM Digitally Signed by NAYELI BRICE DO on 03/03/2024 01:07 PM [facility]Dxnphmsl47-75-3870 NoteORIGINAL PROCEDURE: Percutaneous nephrostomy tube exchange with fluoroscopy CLINICAL STATEMENT: Patient with cervical cancer and left hydronephrosis managed with left nephrostomy tube LATERALITY: Left TEAM TRUCK DRIVER: Lacey Loera PA-C MATERIALS: 10 Fr X [...] using 2 identifiers, confirming site and side. Manager Army image with contrast injection demonstrates stable appearance [...] Sign Date: 01/23/2024 12:41:56 PM Ordering Provider: [facility] ([place])01-21-2024 Hospital Discharge instructions Patient Education 01/21/2024 14:24:03 1-[facility] Discharge Instructions Template (08/2018) VANESSA SAME [...] us better serve our patients. Form: 1522 (55146) R: 02/0901/21/2024 14:16:54 Radiology- Nephrostomy/Nephroureteral Tube Exchange 12/26/2022(CUSTOM) [facility] Nephrostomy/Nephroureteral Tube Exchange Discharge Instructions Interventional Radiology [facility] [address] [place] [address] The procedure that you had done today [...] the feeling of the need to urinate. Fxct-qwo-kmulawr pain medication should be used for pain [...] the gauze. Supplies may be obtained at: [facility] [address] [facility] [address] [facility] Any questions or concerns, please contact your physician or Interventional Radiology at [phone] from 8-4:30pm Friday-Friday. If you do not have a follow up appointment scheduled at the time of discharge, please call Interventional Radiology at the number listed above. Follow Up Care 01/13/2024 12:19:12 With:MADELINE APARICIO MD, [facility] Address: [address] [place] [address] [place] [address]- [phone] When: Unknown Comments:Follow-up with Dr. Aparicio as needed. [facility] 03-20-2024 Note* Alicia Jean RN: SIGN, AUTHOR, SIGN, AUTHOR, PERFORM Event Display: IR Procedure Record Authored Date: IR Procedure Record Summary Primary Physician: Finalized Date/Time: 01/21/24 13:58:22 Pt. Name: LALY NAVAS D.O.B./Sex: 1990 Female Med Rec #: [id number] Physician: Financial #: [id number] Pt. Type: S [facility] Admit/Disch: 01/21/24 11:00:42 - Institution: Allergies [...] LOERA ANTHONY J Beans, Aaron RN PA-C LABOR CREW SUPERVISOR-CUSTOM PROTECTION OFFICER Role Performed Radiology PA/RA Anesthesiologist Thread Winder Automatic 1 Details Time In 01/21/24 13:08:00 01/21/24 [...] Colten G Craemer, Alexis Tech Role Performed Thread Winder Automatic 1 Scrub Technologist Circulating Technologist Details Time [...] mL Medication OMNIPAQUE 350 50ML 10/PK Y-540 [facility] [id number] Radiology Flouroscopy Fluoroscopy Used? Yes Fluoro Dose (mGy) 9.52 Fluoro Time 0.8 minutes Radiology Local Local Used? Yes Local Type: lido 2 % Local Dose 8cc Radiology Procedure Site Site/Location Left flank Site Condition No complications Suture 2.0 Ethibond Suture Dressing Type Tagaderm, Gauze sponge 4 X 4 Technologist Notes Left neph exchange using 10F x 35cm M-Drain lot # [id number] Last Modified By: Dustin Palm RN 01/21/24 [...] Out KIMBERLEY, MARVIN ALEXANDRE Relevant images and LABOR CREW SUPERVISOR-Néstor ESPINOZA Aaron results are properly RN, Alicia Jean labeled and RN, Waldemar Winters, appropriately Craemer, Lorenzo Tech displayed, Alcohol based prep dry, Double [...] Radiology - Action Plan Outcomes Met? Yes Sheet Metal Duct Installer Apprentice Dustin Palm RN Completing Procedure Plan Last Modified By: Dustin Palm RN 01/21/24 13:32:48 Case Comments <None> Finalized By: Alicia Jean RN Document Signatures Signed By: Alicia Jean RN 01/21/24 13:57 Alicia Jean RN 01/21/24 13:58 [facility] 03-20-2024 Summary of episode note Discharge Instructions Thank you for allowing [facility] to assist you with your healthcare needs. The following is importantdischarge information regarding your hospital visit. Your Care Team PHYSICIAN, NONE What to do next Scheduled Follow-Up Appointments Appointment Type When With Where Contact InformationPALL OV Follow Up 02/03/2024 10:30 AM EDOLE CAMPBELL MD [facility] SO OV Follow Up 04/07/2024 03:20 PM EDT BRITTNI LU LABOR CREW SUPERVISOR-SWING FRAME 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 [facility] [address] [place] [phone] Follow Up Appointments Follow Up with MADELINE APARICIO MD, [facility] When Why: Follow-up with Dr. Aparicio as needed. Where: [address] [place] [address] [place] [phone] The Following Activity and Diet Have Been [...] us better serve our patients. Form: 1522 (16831) R: 02/09 [place] Nephrostomy/Nephroureteral Tube Exchange Discharge Instructions Interventional Radiology [facility] [address] [place] [address] The procedure that you had done today [...] the feeling of the need to urinate. Fjaj-qcj-wnqaepw pain medication should be used for pain [...] the gauze. Supplies may be obtained at: [facility] [address] [facility] [address] [facility] Any questions or concerns, please contact your physician or Interventional Radiology at [phone] from 8-4:30pm Friday-Friday. If you do not have a follow up appointment scheduled at the time of discharge, please call Interventional Radiology at the number listed above. Additional Information VACCINATE! IT SAVES LIVES! Members of the community who have not yet received the COVID-19 vaccine and would like to receive it can visit one of [facility] vaccine clinics. There are many vaccine clinic locations within the [facility]. For locations and available times, please visit [email or web address] It is important to note that some COVID mobile vaccine clinics are held outdoors and may be canceled in rainy or stormy conditions. To learn more about pediatric vaccinations (ages 5-11), we invite you to visit the [facility] webpage. https://www.[facility].org/pages/9219-Dgqhg-Cumhcwdewmm-Ebjawoxghb-Ktlox-Ybk stions.htmlTo learn more about the COVID-19 vaccine, we invite you to visit the CDC website for a list of frequently asked questions.https://www.cdc.gov/coronavirus/2019-ncov/vaccines/faq.html [facility] Patient Portal Access Instructions: Stay connected with your healthcare team and access your personal medical information anytime with the [facility] Patient Portal. Please follow the directions below to create your [employer] account: 1.Access the email account you provided upon registration to the hospital/physician office.2.Look for an invitation email from [facility].3.Open the email and access the invitation link: AcceptInvitation to [facility].4.Fill in the required quintero to create your account. To access your account, visit [email or web address]. Click the blue button labeled Access Patient [...] who you will allowto register on the [facility] Patient Portal for access to your information. You can also access the [facility] Patient Portal on the [facility] joya. Simply click on Patient Portal and then log into your account. If you would like to receive a full copy of your medical records, please contact the [facility] Medical Records Department by calling [phone], Friday through Friday between 8 a.m. and [...] Call your local pharmacy or go to http://bit.ly/9P4Hb5y to find one close to you.3.Make use of household items: Use cat litter or old coffee grounds to dispose medications if other options arenot available. Mix your drugs with these household products, seal them in an airtight container andthrow it into the garbage. Call [facility]: [phone] to be sure your drugs can be [...] aware that I should contact my doctor. Patient/[employer] Signature: Date/Time: Relationship to Patient: Witness Name/Signature: Date/Time: [facility]usy[facility]uc[facility]-4740 Evaluation + Plan noteExtracted from: Title:IR Pre-Procedure [...] 01/06/2024 and can be found in the [facility] Records ([employer]). Tadeo Leija PA-C Interventional Radiology Pager: [phone] IR dept: x [phone] Available on [employer] Future Appointments Appointment Date:02/03/2024 10:30:00 AM Scheduled Provider:OLE PACE MD Location:[place] [facility] Appointment Type:PALL OV Follow Up Appointment Date:04/07/2024 03:20:00 PM Scheduled Provider:BRITTNI LU Location:[facility] Appointment Type:SO OV Follow Up Future Scheduled Tests Laboratory* Urinalysis 02/14/23 Radiology* IR Neph Cath-Neph Ureter W/Guide Left 06/30/23 * IR Nephrostomy Tube Change Lt Guide 09/04/23 [facility] 03-20-2024 Note IR Procedure Record Summary Primary Physician: Finalized Date/Time: 01/21/24 13:58:22 Pt. Name: LALY NAVAS/Sex: 1990 Female Med Rec #: [id number] Physician: Financial #: [id number] Pt. Type: S Room[facility]Bed: [facility]A Admit/Disch: 01/21/24 11:00:42 - Institution: Allergies [...] Entry 2 Entry 3 Case Attendee LACEY LEORA BALDOMERO MARVIN Dustin Cantu RN PA-C LABOR CREW SUPERVISOR-CUSTOM PROTECTION OFFICER Role Performed Radiology PA/RA Anesthesiologist Thread Winder Automatic 1 Details Time In 01/21/24 13:08:00 01/21/24 [...] Colten G Craemer, Alexis Tech Role Performed Thread Winder Automatic 1 Scrub Technologist Circulating Technologist Details Time [...] mL Medication OMNIPAQUE 350 50ML 10/PK Y-540 [facility] 8141-2412-19 Radiology Flouroscopy Fluoroscopy Used? Yes Fluoro Dose (mGy) 9.52 Fluoro Time 0.8 minutes Radiology Local Local Used? Yes Local Type: lido 2 % Local Dose 8cc Radiology Procedure Site Site/Location Left flank Site Condition No complications Suture 2.0 Ethibond Suture Dressing Type Tagaderm, Gauze sponge 4 X 4 Technologist Notes Left neph exchange using 10F x 35cm M-Drain lot # [id number] Last Modified By: Dustin Palm RN 01/21/24 [...] BALDOMERO CHU ANTHONY J Relevant images and LABOR CREW SUPERVISOR-Néstor ESPINOZA Aaron results are properly RN, Alicia Jean labeled and RN, Waldemar Winters, appropriately Haroonr, Lorenzo Tech displayed, Alcohol based prep dry, Double [...] Radiology - Action Plan Outcomes Met? Yes Sheet Metal Duct Installer Apprentice Dustin Palm RN Completing Procedure Plan Last Modified By: Dustin Palm RN 01/21/24 13:32:48 Case Comments Finalized By: Alicia Jean RN Document Signatures Signed By: Alicia Jean RN 01/21/24 13:57 Alicia Jean RN 01/21/24 13:58 [facility] Anesthesiology Consult note Patient: LALY NAVAS Age: [...] Problem list: Medical Anxiety / SNOMED CT 83574497 / Confirmed Asthma / SNOMED CT 188900319 / Confirmed Decreased appetite / SNOMED CT 323430035 / Confirmed Dehydration / SNOMED CT 56660398 / Confirmed Port-A-Cath in place / SNOMED CT 1039900614 / Confirmed Bilateral flank pain / SNOMED CT 103278118 / Confirmed History of chemotherapy / SNOMED CT 1054921317 / Confirmed Hx of cervical cancer / SNOMED CT 4558610577 / Confirmed History of radiation therapy / SNOMED CT 4897360093 / Confirmed Hydronephrosis, left / SNOMED CT 17835537 / Confirmed Acute kidney injury / SNOMED CT 20686745 / Confirmed Left flank pain / SNOMED CT 243262835 / Confirmed Cervical cancer / SNOMED CT 705785020 / Confirmed Moderate protein-calorie malnutrition / SNOMED CT 296726858 / Confirmed Nausea and vomiting / SNOMED CT 79878641 / Confirmed Cancer related pain / SNOMED CT 1224191713 / Confirmed DVT prophylaxis / SNOMED CT 335055991 / Confirmed Palliative care encounter / SNOMED CT 286366777 / Confirmed Premature menopause / SNOMED CT 1361851076 / Confirmed Pyelonephritis / SNOMED CT 21420476 / Confirmed Nephrostomy status / SNOMED CT 620656444 / Confirmed Complicated UTI (urinary tract infection) / SNOMED CT 743234730 / Confirmed Obstructive uropathy / SNOMED CT 69778883 / Confirmed, Active Problems (28) Acute kidney [...] ESBL (extended spectrum beta-lactamase) producing bacteria infection (4764427768): Onset on 02/23/2023 at 32 years. Resolved on 05/07/2023 at 32 years. ESBL (extended spectrum beta-lactamase) producing bacteria infection (6856106568): Onset on 08/09/2022 at 31 years. Resolved on 01/02/2023 at 32 years. Comments: 01/02/2023 EST 10:02 JAMAL Haynes Removed ESBL disease alert from 08/2022 per infection control protocol on 01/02/23. Mass of cervix (224673287): Resolved. Chronic kidney disease, stage 3 (moderate) (3187142157): Resolved. Hydronephrosis of left kidney (44381637): Resolved. Cervicitis (638346925): Resolved. Encounter for antineoplastic chemotherapy (879202787): Resolved. Tinnitus (212014834): Resolved. History of COVID-19 (0132074761): Resolved. Procedure history: Nephrostomy tube (068773762) on 10/05/2023 at 32 Years. Comments: 11/19/2023 9:37 Fany Sanchez WILDLIFE REFUGE SPECIALIST left side Nephrostomy with tube drainage (88989865) in the month of 07/2023 at 32 Years. Comments: 06/13/2020 10:09 JAMAL Guaman left Nephrostomy with tube drainage (89663197) on 01/10/2021 at 30 Years. Cannulation of Portacath (890087145) in 2020 at 30 Years. Comments: 06/13/2020 10:09 JAMAL Guaman right JJ stent ([id number]) on 11/15/2020 at 29 Years. Radiation (777009080) in the month of 06/2020 at 29 Years. Comments: 06/26/2020 6:12 GINNY Burton RN Mayi A via tandems and oviod X2 Cervical biopsy (20415179) in 2019 at 29 Years. Comments: 04/12/2020 18:25 Eri Conte RN pt states she had a cervical biopsy done on 04/07/2020 at [facility] for a cervical mass Tumor cells, benign (78046524) in 2001 at 11 Years. 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 done at [facility] in [place] Social History Social & Psychosocial Habits Alcohol 01/06/2024 Assessment: Denies Alcohol Use 01/06/2024 Use: Past Type: Beer Frequency: 1-2 times per week Substance Abuse 01/06/2024 Use: Never 01/06/2024 Assessment: Denies Substance Abuse Tobacco 01/06/2024 Tobacco [...] treatment: None Ready to change: Yes Home/Environment 01/06/2024 Assessment: No Risk 01/06/2024 Domestic Concerns None [...] Examination Vital Signs(last 24 hrs) Last Charted IKU944 mmHg (JAN 20 11:50) DBP84 mmHg (JAN 20 11:50) Measurements from flowsheet : Measurements 01/21/2024 11:50 EDT Height 167.6 cm Height in inches 66 inch(es) Admission Weight 58.2 kg Weight Lbs 128 lb Vina Body Weight 59.26 kg Admission Body Mass [...] Documentation reviewed: Current records. Assessment and Plan [employer] Society of Anesthesiologists (ASA) physical status classification: [...] HILDA HADDAD MD on 01/21/2024 01:09 PM [facility]qxecrj45-22-6589 History and physical note IR PREPROCEDURE H&P [...] 01/06/2024 and can be found in the [facility] Records ([employer]). Tadeo Leija PA-C Interventional Radiology Pager: [phone] IR dept: x [phone] Available on Semmx Digitally Signed by TADEO LEIJA PA-C on 01/21/2024 01:01 PM Digitally Signed by VIRAL MANUEL MD on 01/21/2024 09:32 PM [facility]Heuclgsm01-13-3968 Interventional radiology Progress note Lizy had called today and said she is not feeling well and to cancel her neph tube change with anesthesia. I called anesthesia and let them know and transferred her to [place] for rescheduling. Digitally Signed by Patti Ching on 01/14/2024 08:59 AM [facility]Aqyujiqg88-17-5280 NoteORIGINAL PROCEDURE: IR NEPHROSTOMY TUBE CHANGE MODERATE [...] Sign Date: 12/04/2023 6:36:53 PM Ordering Provider: BRITTNI [facility] ([place])12-03-2023 Hospital Discharge instructions Patient Education 12/03/2023 12:30:02 Radiology- Nephrostomy/Nephroureteral Tube Exchange 12/26/2022(CUSTOM) [place] Nephrostomy/Nephroureteral Tube Exchange Discharge Instructions Interventional Radiology [facility] [address] [place] [address] The procedure that you had done today [...] the feeling of the need to urinate. Qlpr-xcy-bfxlpmf pain medication should be used for pain [...] the gauze. Supplies may be obtained at: [facility] [address] [facility] [address] [facility] Any questions or concerns, please contact your physician or Interventional Radiology at [phone] from 8-4:30pm Friday-Friday. If you do not have a follow up appointment scheduled at the time of discharge, please call Interventional Radiology at the number listed above. Follow Up Care 10/14/2023 17:16:46 With:RITA YEH MD, [facility] Address: [address] [facility] [place] [phone] When: Unknown Comments:Follow-up as scheduled. Schedule appointment as soon as possible [facility] 01-31-2024 Evaluation + Plan noteExtracted from: Title:IR [...] 11/19/2023 and can be found in the [facility] ([employer]). Tadeo Leija PA-C Interventional Radiology Pager: [phone] IR dept: x [phone] Available on [facility] Future Appointments Appointment Date:12/08/2023 03:00:00 PM Scheduled Provider:OLE PACE MD Location:[place] Palliative Appointment Type:PALL OV Follow Up Appointment Date:12/08/2023 03:40:00 PM Scheduled Provider:BRITTNI LU Location:[facility] Appointment Type:SO OV Appointment Date:01/14/2024 10:00:00 AM Scheduled Provider: Location:IR Appointment Type:IR Nephrostomy Exchange Future Scheduled Tests Laboratory* Urinalysis 02/14/23 Radiology* IR Nephrostomy Exchange 01/14/24 * IR Neph Cath-Neph Ureter W/Guide Left 06/30/23 * IR Nephrostomy Tube Change Lt Guide 09/04/23 [facility] 01-31-2024 Note* Lexi Marcano RN: SIGN, AUTHOR, SIGN, AUTHOR, PERFORM Event Display: IR Procedure Record Authored Date: [id number] IR Procedure Record Summary Primary Physician: RITA YEH MD Finalized Date/Time: 12/03/23 11:48:38 Pt. Name: LALY NAVAS/Sex: 1990 Female Med Rec #: [id number] Physician: Financial #: [id number] Pt. Type: S Room/Bed: [facility]8/A Admit/Disch: 12/03/23 09:22:31 - Institution: Allergies [...] Attendee RITA YEH MD, [facility] Herrick, [facility] Role Performed Primary Surgeon Scrub Technologist Circulating Technologist Details Time In 12/03/23 11:18:00 12/03/23 11:18:00 12/03/23 11:18:00 Time Out 12/03/23 11:53:00 12/03/23 11:53:00 12/03/23 11:53:00 Procedure/Preference IR Nephrostomy Exchange IR Nephrostomy Exchange IR Nephrostomy Exchange Card (SN) (SN) (SN) Last Modified By: Lexi Marcano RN Lexi Marcano RN Lexi Marcano RN 12/03/23 11:48:19 12/03/23 11:48:19 12/03/23 11:48:19 Entry 4 Case Attendee Lexi Marcano RN Role Performed Thread Winder Automatic 1 Details Time In 12/03/23 11:18:00 Time [...] mL Medication OMNIPAQUE 300 50ML 10/PK Y-530 [facility] 6839-8049-11 Radiology Flouroscopy Fluoroscopy Used? Yes Fluoro Dose (mGy) 5.39 Fluoro Time 1.6 min Radiology Local Local Used? Yes Local Type: lidocaine 2% Local Dose 4cc Radiology Procedure Site Site/Location left flank Site Condition No complications Dressing Type Bioclusive 4 X 5, Gauze Technologist Notes 10f x 35cm m-drain sponge 4 X 4 lot#[id number] Last Modified By: Lexi Marcano RN 12/03/23 [...] Radiology - Action Plan Outcomes Met? Yes Sheet Metal Duct Installer Apprentice Lexi Marcano RN Completing Procedure Plan Last Modified By: Lexi Marcano RN 12/03/23 11:33:21 Case Comments <None> Finalized By: Lexi Marcano RN Document Signatures Signed By: Lexi Marcano RN 12/03/23 11:48 Lexi Marcano RN 12/03/23 11:48 [facility] 01-31-2024 Summary of episode note Discharge Instructions Thank you for allowing [facility] to assist you with your healthcare needs. The following is importantdischarge information regarding your hospital visit. Your Care Team PHYSICIAN, NONE What to do next Scheduled Follow-Up Appointments Appointment Type When With Where Contact InformationPALL OV Follow Up 12/08/2023 03:00 PM OLE MCNEIL MD Palliative Care SO OV 12/08/2023 03:40 PM BRITTNI OCLEMAN APRN-SWING FRAME 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 [facility] [address] [facility] [place] [place] [address] IR Nephrostomy Exchange 01/14/2024 10:00 AM EDT IR Follow Up Appointments Follow Up with RITA YEH MD, [facility] When Why: Follow-up as scheduled. Schedule appointment as soon as possible Where: [address] [place] [address] [place] [address]- [phone] The Following Activity and Diet Have Been [...] medication providers or retail pharmacies. Education Materials [place] Nephrostomy/Nephroureteral Tube Exchange Discharge Instructions Interventional Radiology [facility] [address] [place] [address] The procedure that you had done today [...] the feeling of the need to urinate. Eoae-qpl-xqeqgki pain medication should be used for pain [...] the gauze. Supplies may be obtained at: [facility] [address] [facility] [address] [facility] Any questions or concerns, please contact your physician or Interventional Radiology at [phone] from 8-4:30pm Friday-Friday. If you do not have a follow up appointment scheduled at the time of discharge, please call Interventional Radiology at the number listed above. Additional Information VACCINATE! IT SAVES LIVES! Members of the community who have not yet received the COVID-19 vaccine and would like to receive it can visit one of [facility] vaccine clinics. There are many vaccine clinic locations within the [facility]. For locations and available times, please visit [email or web address] It is important to note that some COVID mobile vaccine clinics are held outdoors and may be canceled in rainy or stormy conditions. To learn more about pediatric vaccinations (ages 5-11), we invite you to visit the [facility] webpage. https://www.[facility].org/pages/3321-Rbejq-Hekhjrharyb-Srfbbhooww-Ngodl-Mzi stions.htmlTo learn more about the COVID-19 vaccine, we invite you to visit the CDC website for a list of frequently asked questions.https://www.cdc.gov/coronavirus/2019-ncov/vaccines/faq.html [employer] Patient Portal Access Instructions: Stay connected with your healthcare team and access your personal medical information anytime with the [facility] Patient Portal. Please follow the directions below to create your [employer] account: 1.Access the email account you provided upon registration to the hospital/physician office.2.Look for an invitation email from [facility].3.Open the email and access the invitation link: AcceptInvitation to [employer].4.Fill in the required quintero to create your account. To access your account, visit [email or web address]. Click the blue button labeled Access Patient [...] who you will allowto register on the [facility] Patient Portal for access to your information. You can also access the [facility] [employer] Patient Portal on the [facility] joya. Simply click on Patient Portal and then log into your account. If you would like to receive a full copy of your medical records, please contact the [facility] Medical Records Department by calling [phone], Friday through Friday between 8 a.m. and [...] Call your local pharmacy or go to [email or web address] to find one close to you.3.Make use of household items: Use cat litter or old coffee grounds to dispose medications if other options arenot available. Mix your drugs with these household products, seal them in an airtight container andthrow it into the garbage. Call [facility]: [phone] to be sure your drugs can be [...] aware that I should contact my doctor. Patient/[employer] Signature: Date/Time: Relationship to Patient: Witness Name/Signature: Date/Time: [facility]Nikhwplk08-26-3438 Note IR Procedure Record Summary Primary Physician: RITA YEH MD Finalized Date/Time: 12/03/23 11:48:38 Pt. Name: LALY NAVAS /Sex: 1990 Female Med Rec #: [id number] Physician: Financial #: [id number] Pt. Type: S Room[facility]Bed: [facility]/A Admit/Disch: 12/03/23 09:22:31 - Institution: Allergies [...] Attendee RITA YEH MD, Jacque M. Herrick, [facility] Role Performed Primary Surgeon Scrub Technologist Circulating Technologist Details Time In 12/03/23 11:18:00 12/03/23 11:18:00 12/03/23 11:18:00 Time Out 12/03/23 11:53:00 12/03/23 11:53:00 12/03/23 11:53:00 Procedure/Preference IR Nephrostomy Exchange IR Nephrostomy Exchange IR Nephrostomy Exchange Card (SN) (SN) (SN) Last Modified By: Lexi Marcano RN Lexi Marcano RN Lexi Marcano RN 12/03/23 11:48:19 12/03/23 11:48:19 12/03/23 11:48:19 Entry 4 Case Attendee Lexi Marcano RN Role Performed Thread Winder Automatic 1 Details Time In 12/03/23 11:18:00 Time [...] mL Medication OMNIPAQUE 300 50ML 10/PK Y-530 [facility] 5920-7736-77 Radiology Flouroscopy Fluoroscopy Used? Yes Fluoro Dose (mGy) 5.39 Fluoro Time 1.6 min Radiology Local Local Used? Yes Local Type: lidocaine 2% Local Dose 4cc Radiology Procedure Site Site/Location left flank Site Condition No complications Dressing Type Bioclusive 4 X 5, Gauze Technologist Notes 10f x 35cm m-drain sponge 4 X 4 lot#[id number] Last Modified By: Lexi Marcano RN 12/03/23 [...] Radiology - Action Plan Outcomes Met? Yes Sheet Metal Duct Installer Apprentice Lexi Marcano RN Completing Procedure Plan Last Modified By: Lexi Marcano RN 12/03/23 11:33:21 Case Comments Finalized By: Lxei Marcano RN Document Signatures Signed By: Lexi Marcano RN 12/03/23 11:48 Lexi Marcano RN 12/03/23 11:48 [facility]psxqzj95-26-9195 Anesthesiology Consult note Patient: LALY NAVAS Age: [...] Problem list: Medical Anxiety / SNOMED CT 03743311 / Confirmed Asthma / SNOMED CT 286993184 / Confirmed Decreased appetite / SNOMED CT 246229882 / Confirmed Dehydration / SNOMED CT 42500195 / Confirmed Port-A-Cath in place / SNOMED CT 0821429851 / Confirmed Bilateral flank pain / SNOMED CT 728105974 / Confirmed History of chemotherapy / SNOMED CT 6241666082 / Confirmed Hx of cervical cancer / SNOMED CT 0774815484 / Confirmed History of radiation therapy / SNOMED CT 4911007149 / Confirmed Hydronephrosis, left / SNOMED CT 56615886 / Confirmed Acute kidney injury / SNOMED CT 49620583 / Confirmed Left flank pain / SNOMED CT 841933601 / Confirmed Cervical cancer / SNOMED CT 274190296 / Confirmed Moderate protein-calorie malnutrition / SNOMED CT 290960815 / Confirmed Nausea and vomiting / SNOMED CT 84981977 / Confirmed Cancer related pain / SNOMED CT 2061836225 / Confirmed DVT prophylaxis / SNOMED CT 993779097 / Confirmed Palliative care encounter / SNOMED CT 288344701 / Confirmed Premature menopause / SNOMED CT 2678579465 / Confirmed Pyelonephritis / SNOMED CT 12731119 / Confirmed Nephrostomy status / SNOMED CT 948048741 / Confirmed Complicated UTI (urinary tract infection) / SNOMED CT 579723640 / Confirmed Obstructive uropathy / SNOMED CT 91458753 / Confirmed, Active Problems (28) Acute kidney [...] ESBL (extended spectrum beta-lactamase) producing bacteria infection (7131264604): Onset on 02/23/2023 at 32 years. Resolved on 05/07/2023 at 32 years. ESBL (extended spectrum beta-lactamase) producing bacteria infection (7714042506): Onset on 08/09/2022 at 31 years. Resolved on 01/02/2023 at 32 years. Comments: 01/02/2023 EST 10:02 JAMAL Haynes Removed ESBL disease alert from 08/2022 per infection control protocol on 01/02/23. Mass of cervix (361891623): Resolved. Chronic kidney disease, stage 3 (moderate) (6806465305): Resolved. Hydronephrosis of left kidney (04921306): Resolved. Cervicitis (696489250): Resolved. Encounter for antineoplastic chemotherapy (144997943): Resolved. Tinnitus (479225294): Resolved. History of COVID-19 (1685100235): Resolved. Procedure history: Nephrostomy tube (819244468) on 10/05/2023 at 32 Years. Comments: 11/19/2023 9:37 Fany Sanchez LPN left side Nephrostomy with tube drainage (28207499) in the month of 07/2023 at 32 Years. Comments: 06/13/2020 10:09 JAMAL Guaman left Nephrostomy with tube drainage (77728394) on 01/10/2021 at 30 Years. Cannulation of Portacath (381313487) in 2020 at 30 Years. Comments: 06/13/2020 10:09 JAMAL Guaman right JJ stent ([id number]) on 11/15/2020 at 29 Years. Radiation (952041782) in the month of 06/2020 at 29 Years. Comments: 06/26/2020 6:12 JAMAL Braswell via tandems and oviod X2 Cervical biopsy (69305501) in 2019 at 29 Years. Comments: 04/12/2020 18:25 Eri Conte RN pt states she had a cervical biopsy done on 04/07/2020 at [facility] for a cervical mass Tumor cells, benign (82147724) in 2002 at 11 Years. 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 done at [facility] in [place] Social History Social & Psychosocial Habits Alcohol 12/03/2023isk Assessment: Denies Alcohol Use 12/03/2023 Use: Past Type: Beer Frequency: 1-2 times per week Substance Abuse 12/03/2023 Use: Never 12/03/2023isk Assessment: Denies Substance Abuse Tobacco 12/03/2023 Tobacco [...] treatment: None Ready to change: Yes Home/Environment 12/03/2023isk Assessment: No Risk 12/03/2023 Domestic Concerns None [...] Weight 58.6 kg Weight Lbs 128.9 lb Vina Body Weight 59.26 kg Admission Body Mass [...] records, Reviewed prior records. Assessment and Plan Indian Society of Anesthesiologists (ASA) physical status classification: [...] DAVID SMITH MD on 12/03/2023 11:13 AM [facility] History and physical note IR PREPROCEDURE H&P [...] 11/19/2023 and can be found in the [facility] Records ([facility]). Tadeo Leija PA-C Interventional Radiology Pager: [phone] IR dept: x [phone] [facility] on [facility] Digitally Signed by TADEO LEIJA PA-C on 12/03/2023 10:44 AM [facility]sg[facility]ji75[facility]3631 Hospital Discharge instructions Patient Education 10/22/2023 16:36:58 [facility] Discharge Instructions Template (08/2018)(CUSTOM) [facility] SAME DAY SURGERY DISCHARGE INSTRUCTIONS PLEASE FOLLOW [...] us better serve our patients. Form: 1522 (37715) R: 02/0910/22/2023 16:36:17 Radiology- Nephrostomy/Nephroureteral Tube Exchange 12/26/2022(CUSTOM) [facility] Nephrostomy/Nephroureteral Tube Exchange Discharge Instructions Interventional Radiology [facility] [address] [place] [address] The procedure that you had done today [...] the feeling of the need to urinate. Lkjh-eqo-gkpbzse pain medication should be used for pain [...] the gauze. Supplies may be obtained at: [facility] [address] [facility] [address] [facility] Any questions or concerns, please contact your physician or Interventional Radiology at [phone] from 8-4:30pm Friday-Friday. If you do not have a follow up appointment scheduled at the time of discharge, please call Interventional Radiology at the number listed above. Follow Up Care 10/09/2023 15:32:25 With:BRITTNI LU APRN-SWING FRAME 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 Address: [address] [place] [address] [place] [address]- [phone] When: Unknown Comments:Follow-up as scheduled [facility] 12-20-2023 Note* Cristina Simons RN: SIGN, AUTHOR, SIGN, AUTHOR, PERFORM Event Display: IR Procedure Record Authored Date: [id number] IR Procedure Record Summary Primary Physician: VIRAL MASON MD, Ph.D Finalized Date/Time: 10/22/23 15:04:59 Pt. Name: LALY NAVAS Austen /Sex: 1990 Female Med Rec #: [id number] Physician: Financial #: [id number] Pt. Type: S Room[facility]Bed: [facility]/A Admit/Disch: 10/22/23 09:10:31 - Institution: Allergies identified [...] Tech Kathy A Role Performed Primary Surgeon Thread Winder Automatic 1 Scrub Technologist Details Time In 10/22/23 14:47:00 10/22/23 14:31:00 10/22/23 14:31:00 Time Out 10/22/23 14:54:00 10/22/23 15:02:00 10/22/23 15:02:00 Procedure/Preference IR Nephrostomy Exchange IR Nephrostomy Exchange IR Nephrostomy Exchange Card (SN) (SN) (SN) Last Modified By: Cristina Simons RN, Tracie N RN Aller, Tracie N RN 10/22/23 14:56:59 10/22/23 14:56:59 10/22/23 14:56:59 Entry 4 Entry 5 Case Attendee Karolina Prater MATTHEW J APRN-CUSTOM PROTECTION OFFICER Role Performed Circulating Technologist CUSTOM PROTECTION OFFICER Details Time In 10/22/23 14:31:00 10/22/23 14:31:00 Time Out 10/22/23 15:02:00 10/22/23 15:02:00 Procedure/Preference IR Nephrostomy Exchange IR Nephrostomy Exchange Card (SN) (SN) Last Modified By: Cristina Simons RN Cristina Simons RN 10/22/23 14:56:59 10/22/23 14:56:59 Radiology Procedures- [...] mL Medication OMNIPAQUE 300 50ML 10/PK Y-530 [facility] 9428-3472-25 Radiology Flouroscopy Fluoroscopy Used? Yes Fluoro Dose [...] Out Ph.D, Cristina Simons Relevant images and RN, Sam Junior results are properly Moi Brown Jacque labeled and M., HARLOW, MATTHEW J appropriately LABOR CREW SUPERVISOR-CUSTOM PROTECTION OFFICER displayed, Alcohol based prep dry, Double verification [...] Radiology - Action Plan Outcomes Met? Yes Sheet Metal Duct Installer Apprentice Cristina Simons RN Completing Procedure Plan Last Modified By: Cristina Simons RN 10/22/23 14:40:41 Case Comments <None> Finalized By: Cristina Simons RN Document Signatures Signed By: Cristina Simons RN 10/22/23 14:57 Cristina Simons RN 10/22/23 15:04 [facility] 12-20-2023 Summary of episode note Discharge Instructions Thank you for allowing [facility] to assist you with your healthcare needs. The following is importantdischarge information regarding your hospital visit. Your Care Team FLIP MARTIN MD What to do next Scheduled Follow-Up Appointments Appointment Type When With Where Contact InformationSO OV Follow Up 10/31/2023 10:00 AM EST BRITTNI LU [facility] [address] [place] [phone] PALL OV Follow Up 11/18/2023 09:30 AM OLE MCNEIL MD [facility] IR Nephrostomy Exchange 12/03/2023 11:00 AM EST IR Follow Up Appointments Follow Up with BRITTNI LU When Why: Follow-up as scheduled Where: [address] [place] [address] [place] [address]- [phone] The Following Activity and Diet Have Been [...] us better serve our patients. Form: 1522 (88279) R: 02/09 [facility] Nephrostomy/Nephroureteral Tube Exchange Discharge Instructions Interventional Radiology [facility] [address] [place] [address] The procedure that you had done today [...] the feeling of the need to urinate. Czsi-npy-sorvfis pain medication should be used for pain [...] the gauze. Supplies may be obtained at: [facility] [address] [facility] 6[address] [facility] Any questions or concerns, please contact your physician or Interventional Radiology at [phone] from 8-4:30pm Friday-Friday. If you do not have a follow up appointment scheduled at the time of discharge, please call Interventional Radiology at the number listed above. Additional Information VACCINATE! IT SAVES LIVES! Members of the community who have not yet received the COVID-19 vaccine and would like to receive it can visit one of [facility] vaccine clinics. There are many vaccine clinic locations within the [facility]. For locations and available times, please visit [email or web address] It is important to note that some COVID mobile vaccine clinics are held outdoors and may be canceled in rainy or stormy conditions. To learn more about pediatric vaccinations (ages 5-11), we invite you to visit the [facility] webpage. https://www.[email or web address]/pages/2483-Njctp-Wxicvuwizae-Sqphafynqv-Xzfth-Edm stions.htmlTo learn more about the COVID-19 vaccine, we invite you to visit the CDC website for a list of frequently asked questions.https://www.cdc.gov/coronavirus/2019-ncov/vaccines/faq.html [facility] Patient Portal Access Instructions: Stay connected with your healthcare team and access your personal medical information anytime with the [employer] Patient Portal. Please follow the directions below to create your [employer] account: 1.Access the email account you provided upon registration to the hospital/physician office.2.Look for an invitation email from [facility].3.Open the email and access the invitation link: AcceptInvitation to [employer].4.Fill in the required quintero to create your account. To access your account, visit [employer]/LOC&ALLhart. Click the blue button labeled Access Patient Portal and then log in with the username and password that you created in the steps above. You will be able to view your test results, lab results, a summary of your visits, upcoming appointments and more. There is also a convenient messaging option where you can send secure messages to your [employer]. In addition, you will have the ability to download any documents or summaries to your computer and/or send the information securely to a physician. Remember that your healthcare information is confidential, so carefully consider who you will allowto register on the [employer] Patient Portal for access to your information. You can also access the [employer] Patient Portal on the [employer] joya. Simply click on Patient Portal and then log into your account. If you would like to receive a full copy of your medical records, please contact the [facility] Medical Records Department by calling [phone], Friday through Friday between 8 a.m. and [...] Call your local pharmacy or go to [email or web address] to find one close to you.3.Make use of household items: Use cat litter or old coffee grounds to dispose medications if other options arenot available. Mix your drugs with these household products, seal them in an airtight container andthrow it into the garbage. Call [facility]: [phone] to be sure your drugs can be [...] aware that I should contact my doctor. Patient/[employer] Signature: Date/Time: Relationship to Patient: Witness Name/Signature: Date/Time: [facility]pd78[facility]-8645 Note IR Procedure Record Summary Primary Physician: VIRAL MASON MD, Ph.D Finalized Date/Time: 10/22/23 15:04:59 Pt. Name: LALY NAVAS Austen Anna/Sex: 1990 Female Med Rec #: [id number] Physician: Financial #: [id number] Pt. Type: S Room/Bed: [facility]/ Admit/Disch: 10/22/23 09:10:31 - Institution: Allergies identified [...] Tech Kathy A Role Performed Primary Surgeon Thread Winder Automatic 1 Scrub Technologist Details Time In 10/22/23 14:47:00 10/22/23 14:31:00 10/22/23 14:31:00 Time Out 10/22/23 14:54:00 10/22/23 15:02:00 10/22/23 15:02:00 Procedure/Preference IR Nephrostomy Exchange IR Nephrostomy Exchange IR Nephrostomy Exchange Card (SN) (SN) (SN) Last Modified By: Cristina Simons RN, Tracie N RN Aller, Tracie N RN 10/22/23 14:56:59 10/22/23 14:56:59 10/22/23 14:56:59 Entry 4 Entry 5 Case Attendee Karolina Prater MATTHEW J APRN-CUSTOM PROTECTION OFFICER Role Performed Circulating Technologist CUSTOM PROTECTION OFFICER Details Time In 10/22/23 14:31:00 10/22/23 14:31:00 Time Out 10/22/23 15:02:00 10/22/23 15:02:00 Procedure/Preference IR Nephrostomy Exchange IR Nephrostomy Exchange Card (SN) (SN) Last Modified By: Cristina Simons RN Cristina Simons RN 10/22/23 14:56:59 10/22/23 14:56:59 Radiology Procedures- [...] mL Medication OMNIPAQUE 300 50ML 10/PK Y-530 [facility] 2685-9784-03 Radiology Flouroscopy Fluoroscopy Used? Yes Fluoro Dose [...] AH IR 18 Case Level IR Level 3 [...] Out Ph.D, Cristina Simons Relevant images and RN, Sam Junior results are properly Moi Brown Jacque labeled and ELIANA Bermudez MATTHEW J appropriately LABOR CREW SUPERVISOR-CUSTOM PROTECTION OFFICER displayed, Alcohol based prep dry, Double verification [...] Radiology - Action Plan Outcomes Met? Yes Sheet Metal Duct Installer Apprentice Cristina Simons RN Completing Procedure Plan Last Modified By: Cristina Simons RN 10/22/23 14:40:41 Case Comments Finalized By: Cristina Simons RN Document Signatures Signed By: Cristina Simons RN 10/22/23 14:57 Cristina Simons RN 10/22/23 15:04 [id number] Note ORIGINAL EXAMINATION: IR NEPHROSTOMY TUBE RHRAXS4710/22/2023 3:02 pm IR NEPHROSTOMY TUBE CHANGE HISTORY: [...] Sign Date: 10/22/2023 4:31:01 PM Ordering Provider: [facility]12-20-2023 Procedure note Interventional Radiology Procedure Note Pre-procedure Diagnosis: obstruction Post-procedure Diagnosis: same Procedure: 10F Neph exchange Technique/Findings: Routine left neph tube exchange. Anesthesia utilized. Full report to follow. Orders in [employer]. Performed by: Viral Mason MD, PhD Grading Supervisor: None Complications: None Estimated Blood loss: Minimal Specimen: None Digitally Signed by VIRAL MASON MD, Ph.D on 10/22/2023 02:58 PM [facility]zdkfksy15-23-7088 Anesthesiology Consult note Patient: LALY NAVAS Age: [...] food, # 120 EA, 0 Refill(s), Pharmacy: [facility], 167.6, cm, 05/15/23 15:33:00 EDT, Height LORazepam 1 mg oral tablet: Dose : 1 mg = 1 tab(s), Oral, BID, # 60 tab(s), 0 Refill(s), [facility] Cancer related pain History of cervical cancer, 167.6, cm, 09/03/23 13:59:00 EDT, Height, 63.6, kg, 09/03/23 13:59:00 EDT, Dosing Weight OxyContin 15 mg oral tablet, extended release: Dose : 15 mg = 1 tab(s), Oral, BID, # 60 tab(s), 0 Refill(s), [facility]acy: [facility] Cancer related pain Cervical ca, 167.6, cm, 09/03/23 13:59:00 EDT, Height, 63.6, kg, 09/03/23 13:59:00 EDT, Dosing Weight ondansetron 4 mg oral tablet: Dose : 4 mg = 1 tab(s), Oral, q6h, PRN Nausea/Vomiting, # 60 tab(s), 2 Refill(s), Pharmacy: [facility] 167.6, cm, 09/03/23 13:59:00 EDT, Height, kg, 09/03/23 13:59:00 EDT, Dosing Weight oxyCODONE 15 mg oral tablet ( IMMEDIATE release ): Dose : 15 mg = 1 tab(s), Oral, q6hr, may fill on10/05/23, # 120 tab(s), 0 Refill(s), Pharmacy: [facility] Cervical cancer, 167.6, cm, 09/03/23 13:59:00 EDT, [...] Problem list: Medical Anxiety / SNOMED CT 58552783 / Confirmed Asthma / SNOMED CT 730364579 / Confirmed Decreased appetite / SNOMED CT 742031333 / Confirmed Dehydration / SNOMED CT 34907125 / Confirmed Port-A-Cath in place / SNOMED CT 4978869753 / Confirmed Bilateral flank pain / SNOMED CT 776746730 / Confirmed History of chemotherapy / SNOMED CT 1135752961 / Confirmed Hx of cervical cancer / SNOMED CT 9996944943 / Confirmed History of radiation therapy / SNOMED CT 6229776474 / Confirmed Hydronephrosis, left / SNOMED CT 54522850 / Confirmed Acute kidney injury / SNOMED CT 45214519 / Confirmed Left flank pain / SNOMED CT 618156447 / Confirmed Cervical cancer / SNOMED CT 320887525 / Confirmed Moderate protein-calorie malnutrition / SNOMED CT 029602375 / Confirmed Nausea and vomiting / SNOMED CT 68910944 / Confirmed Cancer related pain / SNOMED CT 5534084768 / Confirmed DVT prophylaxis / SNOMED CT 015111084 / Confirmed Palliative care encounter / SNOMED CT 459472555 / Confirmed Premature menopause / SNOMED CT 1735201430 / Confirmed Pyelonephritis / SNOMED CT 25080734 / Confirmed Nephrostomy status / SNOMED CT 615778069 / Confirmed Complicated UTI (urinary tract infection) / SNOMED CT 931037018 / Confirmed Obstructive uropathy / SNOMED CT 81540464 / Confirmed, Active Problems (28) Acute kidney [...] ESBL (extended spectrum beta-lactamase) producing bacteria infection (3757119772): Onset on 02/23/2023 at 32 years. Resolved on 05/07/2023 at 32 years. ESBL (extended spectrum beta-lactamase) producing bacteria infection (0827047649): Onset on 08/09/2022 at 31 years. Resolved on 01/02/2023 at 32 years. Comments: 01/02/2023 EST 10:02 SUMEET - JAMAL Pantoja Removed ESBL disease alert from 08/2022 per infection control protocol on 01/02/23. Mass of cervix (158853463): Resolved. Chronic kidney disease, stage 3 (moderate) (5618260172): Resolved. Hydronephrosis of left kidney (89246197): Resolved. Cervicitis (164061557): Resolved. Encounter for antineoplastic chemotherapy (576508956): Resolved. Tinnitus (153093327): Resolved. History of COVID-19 (0238442904): Resolved. Family History: Cancer Sister COPD - Chronic obstructive pulmonary disease Mother Kidney stone Mother Asthma Mother Breast cancer Mother Hypertension Mother Heart disease Mother Substance abuse Father Alcohol abuse Father Stroke Grandparent Father Heart attack Mother Diabetes Grandparent Procedure history: Nephrostomy with tube drainage (48635641) in the month of 07/2023 at 32 Years. Comments: 06/13/2020 10:09 JAMAL Guaman left Nephrostomy with tube drainage (68628823) on 01/10/2021 at 30 Years. Cannulation of Portacath (014888744) in 2020 at 30 Years. Comments: 06/13/2020 10:09 JAMAL Guaman right JJ stent ([id number]) on 11/15/2020 at 29 Years. Radiation (049296969) in the month of 06/2020 at 29 Years. Comments: 06/26/2020 6:12 GINNY Burton RN Mayi A via tandems and oviod X2 Cervical biopsy (94167235) in 2019 at 29 Years. Comments: 04/12/2020 18:25 Eri Conte RN pt states she had a cervical biopsy done on 04/07/2020 at [facility] for a cervical mass Tumor cells, benign (03939727) in 2001 at 11 Years. 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 done at [facility] in [place] Social History Social & Psychosocial Habits Alcohol [...] Resp Rate 16 br/min (OCT 22 10:16) FSI021 mmHg (OCT 22 10:16) DBP83 mmHg (OCT 22 10:16) Measurements from flowsheet : Measurements 10/22/2023 10:16 EST Height 167.6 cm Height in inches 66 inch(es) Admission Weight 61.4 kg Weight Lbs 135.1 lb Vina Body Weight 59.26 kg Admission Body Mass Index 21.86 m2 General: Alert and oriented. Airway: Mallampati classification: II (soft palate, fauces, uvula visible). Dentition Evaluation: Intact. Respiratory: Lungs are clear to auscultation, Respirations are non-labored. Cardiovascular: Normal rate, Regular rhythm. Heart Sounds: Normal. Neurologic: Alert, Oriented. Review / Management Results review: No qualifying data available . Documentation reviewed: Current records. Assessment and Plan Indian Society of Anesthesiologists (ASA) physical status classification: Class III. Anesthetic Preoperative Plan Premedication: intravenous. Anesthetic technique: MAC. Postoperative pain management: Per surgeon. Informed consent: signed by patient. Notes: Cervical CA. Digitally Signed by OLE MONK MD on 10/22/2023 02:01 PM [facility]ikf[facility]o60-19-9444 Evaluation + Plan noteExtracted from: Title:IR Pre-Procedure [...] Ready to change: Yes. Physical Exam Vitals: Jkimdltdryl56.9 (10:16) Systolic Blood Tfnaocoo501 (10:16) Diastolic Blood Amhcosof92 (10:16) Pulse76 (10:16) CtJ1286 (10:16) Respiratory Rate16 (10:16) General: Alert, cooperative. Heart: Regular Lungs: Clear +LEFT neph tube The remainder of the physical exam is noncontributory. Labs Anticoagulation Labs No qualifying data available. No qualifying data available. Assessment/Treatment Plan LEFT nephrostomy tube exchange Post Procedure Discharge Plan Patient to be discharged home. Tadeo Leija PA-C Interventional Radiology Pager: [phone] IR dept: x [phone] Available on [facility] Future Appointments Appointment Date:10/31/2023 10:00:00 AM Scheduled Provider:BRITTNI LU Location:[facility] Appointment Type:SO OV Follow Up Appointment Date:11/18/2023 09:30:00 AM Scheduled Provider:OLE PACE MD Location:[place] Palliative Appointment Type:PALL OV Follow Up Appointment Date:12/03/2023 11:00:00 AM Scheduled Provider: Location:IR Appointment Type:IR Nephrostomy Exchange Future Scheduled Tests Laboratory* Urinalysis 02/14/23 Radiology* IR Nephrostomy Exchange 12/03/23 * IR Neph Cath-Neph Ureter W/Guide Left 06/30/23 * IR Nephrostomy Tube Change Lt Guide 09/04/23 [facility] 12-20-2023 Note Interventional Radiology Focused Preprocedure History/Physical [...] Ready to change: Yes. Physical Exam Vitals: Efftbojxuuw61.9 (10:16) Systolic Blood Zpjfdmes413 (10:16) Diastolic Blood Xuzotwzi76 (10:16) Pulse76 (10:16) TbK3036 (10:16) Respiratory Rate16 (10:16) General: Alert, cooperative. Heart: Regular Lungs: Clear +LEFT neph tube The remainder of the physical exam is noncontributory. Labs Anticoagulation Labs No qualifying data available. No qualifying data available. Assessment/Treatment Plan LEFT nephrostomy tube exchange Post Procedure Discharge Plan Patient to be discharged home. Tadeo Leija PA-C Interventional Radiology Pager: [phone] IR dept: x [phone] Available on [employer] Digitally Signed by TADEO LEIJA PA-C on 10/22/2023 01:31 PM [facility]viunvwy31-09-7432 Note. MICRO - Microbiology PROCEDURE: Blood Culture [...] Locations *1: This test was performed at: [facility], [address] [place] [address], [facility]- , [facility] ([place])07-24-2023 Hospital Discharge instructions Patient Education 07/24/2023 16:23:03 Radiology- Nephrostomy/Nephroureteral Tube Exchange 12/26/2022(CUSTOM) [facility] Nephrostomy/Nephroureteral Tube Exchange Discharge Instructions Interventional Radiology [facility] [address] [place] [address] The procedure that you had done today [...] the feeling of the need to urinate. Konv-yqk-ugdpydd pain medication should be used for pain [...] the gauze. Supplies may be obtained at: [facility] [address] [facility] [address] [facility] Any questions or concerns, please contact your physician or Interventional Radiology at [phone] from 8-4:30pm Friday-Friday. If you do not have a follow up appointment scheduled at the time of discharge, please call Interventional Radiology at the number listed above. 07/24/2023 16:19:42 [facility] Discharge Instructions Template (08/2018)(CUSTOM) [facility] SAME [...] us better serve our patients. Form: 1522 (60849) R: 02/09 Follow Up Care 07/22/2023 14:03:34 With:MADELINE APARICIO MD, [facility] Address: [address] [place] [address] [facility] [place] [address]- [phone] When: Unknown Comments:Follow-up as scheduled [facility] 09-21-2023 Nurse Progress note Patient returned from [...] Tadeo Whitmore RN on 07/24/2023 04:51 PM [facility]Nsnbrnhf56-98-0025 Summary of episode note Discharge Instructions Thank you for allowing [facility] to assist you with your healthcare needs. The following is importantdischarge information regarding your hospital visit. Your Care Team FLIP MARTIN MD What to do next Scheduled Follow-Up Appointments Appointment Type When With Where Contact InformationSO OV Follow Up 07/30/2023 11:30 AM EDT FLIP MARTIN MD Gynecologic Oncology [address] [facility] [place] [place] [address] PALL New Patient 07/31/2023 03:00 PM EDT OLE PACE MD Palliative Care IR Nephrostomy Tube Change Lt Guide 09/04/2023 01:00 PM EDT IR Follow Up Appointments Follow Up with MADELINE APARICIO MD, [facility] When Why: Follow-up as scheduled Where: [address] [place] [address] [facility] [place] [address]- [phone] The Following Activity and Diet Have Been [...] medication providers or retail pharmacies. Education Materials [place] Nephrostomy/Nephroureteral Tube Exchange Discharge Instructions Interventional Radiology [facility] [address] [place] [address] The procedure that you had done today [...] the feeling of the need to urinate. Vcsm-dps-ltplcnt pain medication should be used for pain [...] the gauze. Supplies may be obtained at: [facility] [address] [facility] [address] [facility] Any questions or concerns, please contact your physician or Interventional Radiology at [phone] from 8-4:30pm Friday-Friday. If you do not [...] us better serve our patients. Form: 1522 (81000) R: 02/09 Additional Information VACCINATE! IT SAVES LIVES! Members of the community who have not yet received the COVID-19 vaccine and would like to receive it can visit one of [facility] vaccine clinics. There are many vaccine clinic locations within the [facility]. For locations and available times, please visit [email or web address]/. It is important to note that some COVID mobile vaccine clinics are held outdoors and may be canceled in rainy or stormy conditions. To learn more about pediatric vaccinations (ages 5-11), we invite you to visit the [facility] webpage. https://www.[facility].org/pages/[email or web address]-Ywhit-Wkasaertwem-Aarsmkqhib-Elpsy-Hab stions.htmlTo learn more about the COVID-19 vaccine, we invite you to visit the CDC website for a list of frequently asked questions.https://www.cdc.gov/coronavirus/2019-ncov/vaccines/faq.html [employer] Patient Portal Access Instructions: Stay connected with your healthcare team and access your personal medical information anytime with the [facility] Patient Portal. Please follow the directions below to create your [facility] [employer] account: 1.Access the email account you provided upon registration to the hospital/physician office.2.Look for an invitation email from [facility].3.Open the email and access the invitation link: AcceptInvitation to [employer].4.Fill in the required quintero to create your account. To access your account, visit [email or web address]. Click the blue button labeled Access Patient [...] who you will allowto register on the [facility] Patient Portal for access to your information. You can also access the [facility] Patient Portal on the [facility] joya. Simply click on Patient Portal and then log into your account. If you would like to receive a full copy of your medical records, please contact the [facility] Medical Records Department by calling [phone], Friday through Friday between 8 a.m. and [...] Call your local pharmacy or go to [email or web address] to find one close to you.3.Make use of household items: Use cat litter or old coffee grounds to dispose medications if other options arenot available. Mix your drugs with these household products, seal them in an airtight container andthrow it into the garbage. Call [facility]: [phone] to be sure your drugs can be [...] Education Materials Radiology- Nephrostomy/Nephroureteral Tube Exchange 12/26/2022(CUSTOM) [facility] Discharge Instructions Template (08/2018)(CUSTOM) Medication Leaflets My discharge plan and instructions have been reviewed and explained to me and I,LALY NAVAS understand my current condition and have read and understand these discharge instructions. I have received a written copy of the plan/instructions. If I have questions, I am aware that I should contact my doctor. Patient/[employer] Signature: Date/Time: Relationship to Patient: Witness Name/Signature: Date/Time: [facility]80[facility]9508 Note IR Procedure Record Summary Primary Physician: MADELINE APARICIO MD Finalized Date/Time: 07/24/23 14:16:14 Pt. Name: LALY NAVAS /Sex: 1990 Female Med Rec #: [id number] Physician: Financial #: [id number] Pt. Type: S Room/Bed: 0107/B Admit/Disch: 07/24/23 09:40:57 - Institution: Allergies identified in patient's electronic medical record at time of printing on 07/24/23 Entry 1 Entry 2 Substance Oranges penicillin Reaction Type Allergy Allergy Last Modified By: Shoshana Renteria RN, Kimberly V. RN 07/21/23 10:11:02 07/21/23 10:10:45 Case Attendance- IR Entry 1 Entry 2 Entry 3 Case Attendee MADELINE APARICIO MD, MATTHEW C Aller, Tracie N RN LABOR CREW SUPERVISOR-CUSTOM PROTECTION OFFICER Role Performed Primary Surgeon CUSTOM PROTECTION OFFICER Thread Winder Automatic 1 Details Time In 07/24/23 12:59:00 07/24/23 [...] 4 Entry 5 Case Attendee Sam Granger Jet Engine Mechanic Austen Piper Role Performed Scrub Technologist Circulating [...] mL Medication OMNIPAQUE 300 50ML 10/PK Y-530 [facility] [id number] Radiology Flouroscopy Fluoroscopy Used? Yes Fluoro Dose [...] Time Out DENISE BUCIO Relevant images and LABOR CREW SUPERVISOR-Kristyn ESPINOZA, results are properly Cristina Hitchcock RN, Bárbara, labeled and Jet Engine Mechanic Leatha L, appropriately Elaine Jet Engine Mechanic Lida moon Confirm/obtain preop antibiotic order., Alcohol based prep [...] Back Chest, Groin Side Left Right By Bárbara Jet Engine Mechanic Leatha Granger Jet Engine Mechanic Leatha Boyce Prep Agents Betadine Solution Chloraprep Hair Removal [...] Radiology - Action Plan Outcomes Met? Yes Sheet Metal Duct Installer Apprentice Cristina Simons RN Completing Procedure Plan Last Modified By: Cristina Simons RN 07/24/23 12:48:58 Case Comments Finalized By: Sam Henry Document Signatures Signed By: Cristina Simons RN 07/24/23 13:58 Sam Henry 07/24/23 14:15 Sam Henry 07/24/23 14:16 [facility]0048 Evaluation + Plan noteExtracted from: Title:IR Pre-Procedure [...] 06/26/23 and can be found in the [facility] ([employer]). Milagro Mcgarry PA-C Interventional Radiology IR Dept [id number] Available on [facility] Future Appointments Appointment Date:07/30/2023 11:30:00 AM Scheduled Provider:FLIP MARTIN MD Location:[facility] Appointment Type:SO OV Follow Up Appointment Date:07/31/2023 03:00:00 PM Scheduled Provider:OLE PACE MD Location:[facility] Palliative Appointment Type:PALL New Patient Appointment Date:09/04/2023 01:00:00 PM Scheduled Provider: Location:IR Appointment Type:IR Nephrostomy Tube Change Lt Guide Future Scheduled Tests Laboratory* Pathology Nuclear Operations Specialist Request 05/15/23 * Urinalysis 02/14/23 Radiology* IR [...] IR Nephrostomy Tube Change Lt Guide 06/21/24 [facility] 09-21-2023 Note* Cristina Simons RN: SIGN Cristina Simons RN: SIGN, AUTHOR Cristina Simons RN: AUTHOR, AUTHOR, PERFORM, SIGN Sam Henry K: SIGN, AUTHOR Elaine Jet Engine MechanicMendel Hilton K: AUTHOR Event Display: IR Procedure Record Authored Date: IR Procedure Record Summary Primary Physician: MADELINE APARICIO MD Finalized Date/Time: 07/24/23 14:16:14 Pt. Name: ANTONELLA LALY L /Sex: 1990 Female Med Rec #: [id number] Physician: Financial #: [id number] Pt. Type: S Room/Bed: Banner Admit/Disch: 07/24/23 09:40:57 - Institution: Allergies identified in patient's electronic medical record at time of printing on 07/24/23 Entry 1 Entry 2 Substance Oranges penicillin Reaction Type Allergy Allergy Last Modified By: Shoshana Renteria RN, Kimberly V. RN 07/21/23 10:11:02 07/21/23 10:10:45 Case Attendance- IR Entry 1 Entry 2 Entry 3 Case Attendee MADELINE APARICIO MD, MATTHEW C Aller, Tracie N RN LABOR CREW SUPERVISOR-CUSTOM PROTECTION OFFICER Role Performed Primary Surgeon CUSTOM PROTECTION OFFICER Thread Winder Automatic 1 Details Time In 07/24/23 12:59:00 07/24/23 [...] mL Medication OMNIPAQUE 300 50ML 10/PK Y-530 [facility] 5186-7851-94 Radiology Flouroscopy Fluoroscopy Used? Yes Fluoro Dose [...] Time Out DENISE BUCIO Relevant images and LABOR CREW SUPERVISOR-Kristyn ESPINOZA, results are properly Cristina Hitchcock RN, Bárbara, johnny and Jet Engine Mechanic Leatha L, appropriately Sam Henry, Lida K Confirm/obtain preop antibiotic order., Alcohol based prep [...] and Time Last Modified By: Sam Henry Jet Engine Mechanic Lida Veronique 07/24/23 Lida K 07/24/23 14:13:15 14:13:15 Radiology [...] Radiology - Action Plan Outcomes Met? Yes Sheet Metal Duct Installer Apprentice Cristina Simons RN Completing Procedure Plan Last Modified By: Cristina Simons RN 07/24/23 12:48:58 Case Comments <None> Finalized By: Sam Henry Document Signatures Signed By: Cristina Simons RN 07/24/23 13:58 Sam Henry 07/24/23 14:15 Sam Henry 07/24/23 14:16 [facility] 09-21-2023 History and physical note IR PREPROCEDURE [...] 06/26/23 and can be found in the [facility] ([employer]). Milagro Mcgarry PA-C Interventional Radiology IR Dept [id number] Available on [facility] [employer] Digitally Signed by MILAGRO MCGARRY PA-C on 07/24/2023 12:20 PM Digitally Signed by MADELINE APARICIO MD on 07/24/2023 05:58 PM [facility]Fsxynlws36-30-9954 Anesthesiology Consult note Patient: LALY NAVAS Age: [...] Medical Left flank pain / SNOMED CT 210699723 / Confirmed Nausea and vomiting / SNOMED CT 87957950 / Confirmed Dehydration / SNOMED CT 94789593 / Confirmed Asthma / SNOMED CT 050896145 / Confirmed Obstructive uropathy / SNOMED CT 99624765 / Confirmed Acute kidney injury / SNOMED CT 29736083 / Confirmed Moderate protein-calorie malnutrition / SNOMED CT 524529961 / Confirmed Port-A-Cath in place / SNOMED CT 5251326751 / Confirmed History of chemotherapy / SNOMED CT 8985934096 / Confirmed History of radiation therapy / SNOMED CT 6651002475 / Confirmed Complicated UTI (urinary tract infection) / SNOMED CT 296612883 / Confirmed Anxiety / SNOMED CT 26663918 / Confirmed DVT prophylaxis / SNOMED CT 336299776 / Confirmed Decreased appetite / SNOMED CT 793093829 / Confirmed Cervical cancer / SNOMED CT 126508841 / Confirmed Nephrostomy status / SNOMED CT 713368477 / Confirmed Premature menopause / SNOMED CT 9639510120 / Confirmed Pyelonephritis / SNOMED CT 00857684 / Confirmed Bilateral flank pain / SNOMED CT 784705618 / Confirmed Cancer related pain / SNOMED CT 2855297839 / Confirmed, Active Problems (25) Acute kidney [...] ESBL (extended spectrum beta-lactamase) producing bacteria infection (5040450844): Onset on 02/23/2023 at 32 years. Resolved on 05/07/2023 at 32 years. ESBL (extended spectrum beta-lactamase) producing bacteria infection (4331596617): Onset on 08/09/2022 at 31 years. Resolved on 01/02/2023 at 32 years. Comments: 01/02/2023 EST 10:02 JAMAL Holloway Removed ESBL disease alert from 08/2022 per infection control protocol on 01/02/23. Mass of cervix (424048004): Resolved. Chronic kidney disease, stage 3 (moderate) (5289744577): Resolved. Hydronephrosis of left kidney (27587794): Resolved. Cervicitis (323385722): Resolved. Encounter for antineoplastic chemotherapy (947335833): Resolved. Tinnitus (083381932): Resolved. History of COVID-19 (7183138770): Resolved. Family History: Cancer Sister COPD - Chronic obstructive pulmonary disease Mother Kidney stone Mother Asthma Mother Breast cancer Mother Hypertension Mother Heart disease Mother Substance abuse Father Alcohol abuse Father Stroke Grandparent Father Heart attack Mother Diabetes Grandparent Procedure history: Nephrostomy with tube drainage (23219801) in the month of 07/2023 at 32 Years. Comments: 06/13/2020 10:09 JAMAL Guaman left Nephrostomy with tube drainage (19724718) on 01/10/2021 at 30 Years. Cannulation of Portacath (847434227) in 2020 at 30 Years. Comments: 06/13/2020 10:09 JAMAL Guaman right JJ stent (7002349200) on 11/15/2020 at 29 Years. Radiation (508837836) in the month of 06/2020 at 29 Years. Comments: 06/26/2020 6:12 JAMAL Braswell via tandems and oviod X2 Cervical biopsy (76254402) in 2019 at 29 Years. Comments: 04/12/2020 18:25 Eri Conte RN pt states she had a cervical biopsy done on 04/07/2020 at [facility] for a cervical mass Tumor cells, benign (27233396) in 2001 at 11 Years. 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 done at [facility] in [place] Social History Social & Psychosocial Habits Alcohol [...] Resp Rate 18 br/min (JUL 24 10:08) QRV157 mmHg (JUL 24 10:08) DBP83 mmHg (JUL 24 10:08) Measurements from flowsheet : Measurements 07/24/2023 10:08 EDT Height 167.6 cm Height in inches 66 inch(es) Admission Weight 67.8 kg Weight Lbs 149.2 lb Weight Method Actual Vina Body Weight 59.26 kg Type of Scale [...] Weight Lbs 149.2 lb Weight Method Actual Vina Body Weight 59.26 kg Type of Scale [...] Devices Nephrostomy Skin Temperature Warm Skin Description Combined Locks, Dry Skin Integrity Intact Characteristics of Speech [...] Patient History PreTest (Modified) 07/24/2023 9:27 EDT CSummary CSUMMARY 07/24/2023 9:27 EDT CSummary CSUMMARY 07/23/2023 11:58 EDT Message PAC Team Auth Message 07/23/2023 0:00 EDT Precert Scanned NEPH CATH EXCHANGE AUTH . Assessment and Plan [employer] Society of Anesthesiologists (ASA) physical status classification: Class III. Anesthetic Preoperative Plan Anesthetic technique: General. Induction: intravenously. Maintenance airway: Oral endotracheal tube. Postoperative pain management: Per surgeon. Risks discussed: nausea, vomiting, headache, sore throat, dental injury, hypotension, allergic reaction, serious complications. Informed consent: signed by patient. Notes: smoker, asthma, cervical CA. Digitally Signed by MARIN COTE MD on 07/24/2023 12:05 PM [facility]jkphnew17-10-3181 Procedure note Brief IR Post Procedure Note - Outpatient Pre Procedure Dx: Cervical ca hx, left ureteral scarring requiring chronic catheter, poor compliance where prior PCNU was stuck in ureter, fibrin sheath of port Post Procedure Dx: Same Procedure: 1. Conversion of left PCNU to PCN 2. Port venogram 3. Port catheter fibrin sheath stripping Enrolled Nurse: Markus Grading Supervisor: None Anesthesia: Local, MAC EBL: Minimal Complications:None [...] MD Vascular & Interventional Radiology [facility] ([facility]) Vamsi [email or web address] Pager: [phone] [facility] Dept (26/05): [phone] [facility] [phone] [facility] Digitally Signed by MADELINE APARICIO MD on 07/24/2023 01:58 PM [facility]Rejqsaau02-14-5784 Hospital Discharge instructions Patient Education 07/16/2023 13:40:49 [...] strategies to do this. General instructions Take rowa-dbm-iyrjcwc and prescription medicines only as told by [...] 07/12/2003 Document Revised: 10/02/2018 Document Reviewed: 04/08/2017 [employer] Patient Education 2020 [employer]. Follow Up Care 07/08/2023 20:13:58 With:OLE PACE MD Address: [address] [facility] [place] [address]- [phone] When:07/24/2023 15:00:00 With:FLIP MARTIN MD Address: [address] [facility] [place] [address]- [phone] When:07/30/2023 11:30:00 [facility] 09-13-2023 Palliative care Progress note Awaiting prior auth Digitally Signed by SANTINO SAWYER MD on 07/16/2023 06:16 AM [facility]vufsfky62-48-2966 Note Date of Service 07/16/23 Subjective Patient [...] Tract Infection - 07/07/23 Patient presented to [facility] for UTI symptoms. - Urinalysis on 07/07 was remarkable for signs of UTI at [facility]. Patient was placed on BactrimDS twice daily x10 days for outpatient management after discussion with Dr. Hilliard. - 07/07/23 CT abdomen/pelvis obtained at that time showed Left-sided nephrostomy is present extendingto the bladder. There is an irregularly shaped hypodense focus in the upper pole of the kidney without enhancement. Mucosal thickening versus underfilling of the colon. - 07/08 Patient again presents to [facility] with N/V, pain and UTI symptoms - [...] was supposed to see Dr. Andrea at [facility]. Referral was sent to this provider to be scheduled end of May/early June. Patient did not do this. - Discussion with Dr. Martin via telehealth visit, patient was encouraged again to follow-up with [facility] urology for possible nephrectomy in order to [...] MARIA GODOY DO on 07/16/2023 06:55 AM [facility]Lpbzawsa77-22-5813 Note Discharge Instructions Thank you for allowing [facility] to assist you with your healthcare needs. [...] Surgery 07/24/2023 11:25 AM EDT Main OR [phone] IR Neph Cath-Neph Ureter W/Guide Left 07/24/2023 12:00 PM EDT IR PALL New Patient 07/24/2023 03:00 PM EDT OLE PACE MD Palliative Care SO OV Follow Up 07/30/2023 11:30 AM EDT FLIP MARTIN MD Gynecologic Oncology [address] [place] [id number] Follow Up Appointments Follow Up with FLIP MARTIN MD When 07/30/2023 11:30 AM EDT Where: [address] [place] [address] [place] [address]- [phone] The Following Activity and Diet Have Been [...] Cervical ca Duration: 9 Days Pickup at [facility]. Changed LORazepam (LORazepam 1 mg oral tablet) 1 tab(s) by mouth Every 8 hours Changed oxyCODONE (oxyCODONE 5 mg oral tablet ( IMMEDIATE release )) 3 tab(s) by mouth Every 4 hours as needed for as needed for pain Cancer related pain Cervical ca Duration: 7 Days Pickup at [facility]. Changed oxyCODONE (OxyContin 15 mg oral tablet, extended release) 1 tab(s) by mouth Two (2) times a day Cancer related pain Cervical ca Pickup at [facility]. Unchanged calcium-vitamin D (Calcium Plus Vitamin D3 [...] hours as needed for Nausea/Vomiting Pharmacy Information [facility] [address] [place], [place] [id number] [phone] Please take this list to your next [...] strategies to do this. General instructions Take wntm-vvf-qfqdeyy and prescription medicines only as told by [...] 07/12/2003 Document Revised: 10/02/2018 Document Reviewed: 04/08/2017 [employer] Patient Education 2020 Smule. Additional Information VACCINATE! IT SAVES LIVES! Members of the community who have not yet received the COVID-19 vaccine and would like to receive it can visit one of [facility] vaccine clinics. There are many vaccine clinic locations within the [facility]. For locations and available times, please visit [email or web address].gov/. It is important to note that some COVID mobile vaccine clinics are held outdoors and may be canceled in rainy or stormy conditions. To learn more about pediatric vaccinations (ages 5-11), we invite you to visit the [facility] webpage. https://www.[facility].org/pages/2316-Yxnbc-Jhvoeqdvekd-Lybjgcfdzo-Jayie-Nju stions.htmlTo learn more about the COVID-19 vaccine, we invite you to visit the CDC website for a list of frequently asked questions.https://www.cdc.gov/coronavirus/2019-ncov/vaccines/faq.html [facility] Patient Portal Access Instructions: Stay connected with your healthcare team and access your personal medical information anytime with the [facility] Patient Portal. Please follow the directions below to create your [employer] account: 1.Access the email account you provided upon registration to the hospital/physician office.2.Look for an invitation email from [facility].3.Open the email and access the invitation link: AcceptInvitation to [facility].4.Fill in the required quintero to create your account. To access your account, visit [email or web address]. Click the blue button labeled Access Patient [...] who you will allowto register on the [facility] Patient Portal for access to your information. You can also access the [facility] Patient Portal on the [facility] [employer] joya. Simply click on Patient Portal and then log into your account. If you would like to receive a full copy of your medical records, please contact the [facility] Medical Records Department by calling [phone], Friday through Friday between 8 a.m. and [...] Call your local pharmacy or go to http://bit.ly/8K4Hl5y to find one close to you.3.Make use of household items: Use cat litter or old coffee grounds to dispose medications if other options arenot available. Mix your drugs with these household products, seal them in an airtight container andthrow it into the garbage. Call [facility]: [phone] to be sure your drugs can be [...] aware that I should contact my doctor. Patient/[employer] Signature: Date/Time: Relationship to Patient: Witness Name/Signature: Date/Time: [facility]msovbbg86-42-1638 Note Date of Service 07/16/23 Subjective Patient [...] Tract Infection - 07/07/23 Patient presented to [facility] for UTI symptoms. - Urinalysis on 07/07 was remarkable for signs of UTI at [facility]. Patient was placed on BactrimDS twice daily x10 days for outpatient management after discussion with Dr. Hilliard. - 07/07/23 CT abdomen/pelvis obtained at that time showed Left-sided nephrostomy is present extendingto the bladder. There is an irregularly shaped hypodense focus in the upper pole of the kidney without enhancement. Mucosal thickening versus underfilling of the colon. - 07/08 Patient again presents to [facility] with N/V, pain and UTI symptoms - [...] was supposed to see Dr. Andrea at [facility]. Referral was sent to this provider to be scheduled end of May/early June. Patient did not do this. - Discussion with Dr. Martin via telehealth visit, patient was encouraged again to follow-up with [facility] urology for possible nephrectomy in order to [...] MARIA GODOY DO on 07/16/2023 06:55 AM [facility]yqhdnax21-49-6950 Palliative care Progress note Awaiting prior auth Digitally Signed by SANTINO SAWYER MD on 07/16/2023 06:16 AM [facility]Yzcqhlzq63-11-1843 Palliative care Progress note Chart reviewed in detail. EKG remains pending to evaluate for possible QTc prolongation in anticipation of possibly starting methadone. Per documentation, patient resistant to starting methadone. Prescription written for oxycodone, OxyContin in anticipation of discharge tomorrow in case there is prior authorization needed. Digitally Signed by SANTINO SAWYER MD on 07/15/2023 12:19 PM [facility]Cetznclp37-84-6708 Palliative care Progress note Chart reviewed in detail. EKG remains pending to evaluate for possible QTc prolongation in anticipation of possibly starting methadone. Per documentation, patient resistant to starting methadone. Prescription written for oxycodone, OxyContin in anticipation of discharge tomorrow in case there is prior authorization needed. Digitally Signed by SANTINO SAWYER MD on 07/15/2023 12:19 PM [facility]ojklrtg52-23-1035 Note Date of Service 07/15/2023 Chief Complaint [...] 100 UOP: 75cc clear urine in nephrostomy. 3149/ Pain control: Oral Oxycontin , oxycodone, Gabapentin, [...] Urinary Tract Infection -07/07/23 Patient presented to [facility] for UTI symptoms. - Urinalysis on 07/07 [facility] [place] Patient was placed on BactrimDS twice daily x10 days for outpatient management after discussion with Dr. Hilliard. - 07/07/23 CT abdomen/pelvis obtained at that time showed Left-sided nephrostomy is present extendingto the bladder. There is an irregularly shaped hypodense focus in the upper pole of the kidney without enhancement. Mucosal thickening versus underfilling of the colon. -07/08 Patient again presents to [facility] with N/V, pain and UTI symptoms -Patient [...] was supposed to see Dr. Andrea at [facility]. Referral was sent to this provider to be scheduled end of May/early June. Patient did not dothis. -Discussion with Dr. Martin via telehealth visit, patient was encouraged again to follow-up with [facility] urology for possible nephrectomy in order to [...] ANGELA ALVARADO DO on 07/15/2023 06:33 AM [id number] Nurse Progress note Nephrostomy dressing changed. Site [...] was being pulled on. Digitally Signed by Elicia Rojo RN on 07/15/2023 10:28 AM [facility]Gejeykrk27-22-4681 Note Date of Service 07/15/2023 Chief Complaint [...] Urinary Tract Infection -07/07/23 Patient presented to [facility] for UTI symptoms. - Urinalysis on 07/07 was remarkable for signs of UTI at [facility]. Patient was placed on BactrimDS twice daily x10 days for outpatient management after discussion with Dr. Hilliard. - 07/07/23 CT abdomen/pelvis obtained at that time showed Left-sided nephrostomy is present extendingto the bladder. There is an irregularly shaped hypodense focus in the upper pole of the kidney without enhancement. Mucosal thickening versus underfilling of the colon. -07/08 Patient again presents to [facility] with N/V, pain and UTI symptoms -Patient [...] was supposed to see Dr. Andrea at [facility]. Referral was sent to this provider to be scheduled end of May/early June. Patient did not dothis. -Discussion with Dr. Martin via telehealth visit, patient was encouraged again to follow-up with [facility] urology for possible nephrectomy in order to [...] ANGELA ALVARADO DO on 07/15/2023 06:33 AM [facility]Enjqvjvr04-38-3090 Palliative care Progress note Date of Service [...] SANTINO SAWYER MD on 07/14/2023 03:31 PM [facility]Cnguncul28-99-7961 Note Date of Service 07/14/2023 Chief Complaint [...] Urinary Tract Infection -07/07/23 Patient presented to [facility] for UTI symptoms. - Urinalysis on 07/07 was remarkable for signs of UTI at [facility]. Patient was placed on BactrimDS twice daily x10 days for outpatient management after discussion with Dr. Hilliard. - 07/07/23 CT abdomen/pelvis obtained at that time showed Left-sided nephrostomy is present extendingto the bladder. There is an irregularly shaped hypodense focus in the upper pole of the kidney without enhancement. Mucosal thickening versus underfilling of the colon. -07/08 Patient again presents to [facility] with N/V, pain and UTI symptoms -Patient [...] the same - consult to psych, onc health care social worker, nurse navigator - plan for patient to follow up with pain management outpatient. Left Nephrostomy Tube -Patient was scheduled with interventional radiology for nephroureteral tube change on 06/24/2023. Patient did not show for appointment. -Patient does not currently follow with a urologist. She was supposed to see Dr. Andrea at [facility]. Referral was sent to this provider to be scheduled end of May/early June. Patient did not dothis. -Discussion with Dr. Martin via telehealth visit, patient was encouraged again to follow-up with [facility] urology for possible nephrectomy in order to [...] ANGELA ALVARADO DO on 07/14/2023 06:45 AM [id number] Mental health Consult note Date of Service [...] Patient reports that she lives alone in [place], and due to her chronic health conditions [...] 4 different options for psychotherapy follow-up in [place], where she lives, including family life counseling, the counseling center, [facility], and [facility]. She expresses understanding and agrees to consider. [...] mg= 1 tab(s), Oral, qDay Sterile Water MCC, 2.2 mL, IV Push, prep pharm Zofran, [...] CAIO KNOX MD on 07/14/2023 08:48 AM [facility]Xeocmahh18-14-0279 Note Date of Service 07/14/2023 Chief Complaint [...] Urinary Tract Infection -07/07/23 Patient presented to [facility] for UTI symptoms. - Urinalysis on 07/07 was remarkable for signs of UTI at [facility]. Patient was placed on BactrimDS twice daily x10 days for outpatient management after discussion with Dr. Hilliard. - 07/07/23 CT abdomen/pelvis obtained at that time showed Left-sided nephrostomy is present extendingto the bladder. There is an irregularly shaped hypodense focus in the upper pole of the kidney without enhancement. Mucosal thickening versus underfilling of the colon. -07/08 Patient again presents to [facility] with N/V, pain and UTI symptoms -Patient [...] the same - consult to psych, onc health care social worker, nurse navigator - plan for patient to follow up with pain management outpatient. Left Nephrostomy Tube -Patient was scheduled with interventional radiology for nephroureteral tube change on 06/24/2023. Patient did not show for appointment. -Patient does not currently follow with a urologist. She was supposed to see Dr. Andrea at [facility]. Referral was sent to this provider to be scheduled end of May/early June. Patient did not dothis. -Discussion with Dr. Martin via telehealth visit, patient was encouraged again to follow-up with [facility] urology for possible nephrectomy in order to [...] ANGELA ALVARADO DO on 07/14/2023 06:45 AM [id number] Palliative care Consult note Date of Service 07/11/2023 Reason for Consult Cancer related pain management Participants in Discussion Lizy, the patient History of Present Illness Lizy Navas is a 32-year-old, Mongolian-speaking, female with past medical history of advanced [...] add senna instead. Goals of Care/Disposition Currently, Lizy is listed as a full code She endorses a full CODE STATUS is reflective of her goals. We discussed advance care planning. She has never completed healthcare power of civil litigation attorney. We discussed legal surrogate decision making hierarchy. She would not want her family making decisions regarding her medical care. Provided information regarding healthcare power of civil litigation attorney. She would like totalk to her friend about this. We offered to complete healthcare power of civil litigation attorney here in hospitalbut if she is discharged prior to completing this she knows she can complete healthcare power of civil litigation attorney paperwork outpatient as well. Problem [...] 2 mL, IV Push, q6h Sterile Water MCC, 2.2 mL, IV Push, prep pharm Toradol, [...] Full Code, Constant Order Digitally Signed by SANITNO SAWYER MD on 07/11/2023 02:36 PM [id number] Nurse Progress note patient states that she fell, she thinks she passed out. Neuro assessment negative, no evidence of injury. charge nurse notified Digitally Signed by JAMAL Ferrer on 07/10/2023 04:10 PM [facility]Smrxtdfc94-72-2706 Note. MICRO - Microbiology PROCEDURE: Urine Culture [...] Locations *1: This test was performed at: [facility], [address] [place] [address], [id number] , [facility] ([place])07-10-2023 Note. MICRO - Microbiology PROCEDURE: Urine Culture [...] Locations *1: This test was performed at: [address], [id number]- , [facility] ([place])07-10-2023 NoteORIGINAL PROCEDURE: IR NEPHROSTOMY TUBE CHANGE MODERATE CONSCIOUS SEDATION 07/09/2023 HISTORY: ORDERING SYSTEM PROVIDED HISTORY: Reason for Exam: Overdue for nephrostomy tube exchange, last changed in April Routine nephroureteral stent check unchanged TECHNIQUE: Parada portions of the exam: 1. Retrieval of foreign body. 2. Antegrade nephrostogram. 3. Angioplasty of the ureter. 4. Replacement of nephroureteral stent with up sizing to 10 Chadian CONTRAST: 80 cc SEDATION: Moderate sedation was ordered and supervised by the attending with physician [id number] monitoring. Medications were provided and recorded by Radiology nurses. FLUOROSCOPY DOSE AND TYPE: Radiation Exposure Index: 26.1 minutes of fluoroscopic time was 344 AKA, DESCRIPTION OF PROCEDURE: Informed consent was obtained after a detailed explanation of the procedure including risks, benefits, and alternatives. [place] protocol was observed. Sterile gowns, masks, hats [...] made to attempt exchange of an 8 Chadian nephroureteral stent. Under fluoroscopic guidance, a all [...] significant amount of backwards pressure, the 8 Chadian nephroureteral stent is unable to be pulled. [...] the bladder. At this point, a 7 Chadian 45 cm sheath is now advanced into the bladder from the nephrostomy tube access through the ureter at which point, a 15 mm 6 Chadian snare is advanced and used to snare the broken piece of 014 wire with retrieval of foreign body performed. Next, a new nephroureteral stent is advanced. Given that the 8 Chadian had occluded previously, decision was made to place a 10 Chadian nephroureteral stent. Over the stiff glide, a [...] Date: 07/10/2023 1:33:51 PM Ordering Provider: SASHA [facility])07-10-2023 Note ORIGINAL PROCEDURE: VR PORTOGRAPHY MODERATE CONSCIOUS SEDATION 07/09/2023 HISTORY: ORDERING SYSTEM PROVIDED HISTORY: Reason for Exam: port not aspirating TECHNIQUE: The previously accessed MediPort (Lujan needle) was injected with contrast and fluoroscopic images are obtained. CONTRAST: 20 cc of Visipaque SEDATION: Moderate sedation was ordered and supervised by the attending with physician [id number] monitoring. Medications were provided and recorded by Radiology nurses. FLUOROSCOPY DOSE AND TYPE: Radiation Exposure Index: 12 AK, total fluoro time was 22 seconds DESCRIPTION OF PROCEDURE: Informed consent was obtained after a detailed explanation of the procedure including risks, benefits, and alternatives. [place] protocol was observed. Sterile gowns, masks, hats [...] Sign Date: 07/10/2023 10:42:17 AM [facility]ing [facility] ([place])07-10-2023 Note System generated consult for an established nephrostomy tube and was exchanged yesterday. Securement DSG: gauze & transparent DSG is dry and intact. Recommend to change as needed at least every 7days. Digitally Signed by Rhea Pruett RN, Skin Team on 07/10/2023 09:37 AM [facility]Dtygwjpm26-46-5768 Note IR Procedure Record Summary Primary Physician: JOHANNA JEAN BAPTISTE MD Finalized Date/Time: 07/10/23 09:11:10 Pt. Name: LALY NAVAS /Sex: 1990 Female Med Rec #: [id number] Physician: FLIP MARTIN MD Financial #: [id number] Pt. Type: I Room/Bed: 6672/A Admit/Disch: 07/08/23 20:11:38 - Institution: Allergies identified in patient's electronic medical record at time of printing on 07/10/23 Entry 1 Entry 2 Substance Oranges penicillin Reaction Type Allergy Allergy Last Modified By: JAMAL Scott RN Evan 02/03/21 10/04/22 08:25:47 17:13:24 Case Attendance- IR Entry 1 Entry 2 Entry 3 Case Attendee JOHANNA JEAN BAPTISTE MD, Tracie N RN Lee, RN Alivia Boyce Role Performed Primary Surgeon Procedure Nurse Thread Winder Automatic 1 Details Time In 07/09/23 11:45:00 07/09/23 [...] W/Guide S Last Modified By: Sam Henry Rad Tech Hultman, Rad Tech Lida Piper 07/09/23 Lida K 07/09/23 Lida K 07/09/23 14:10:01 14:10:01 14:10:01 Entry 4 Entry 5 Entry 6 Case Attendee Padmini Fairchild Rad Tech Donna Hill, Hannah RN Tech Role Performed Scrub Technologist Circulating Technologist Procedure [...] Perc W/Guide S Last Modified By: Elaine Jet Engine Mechanic Elaine, Jet Engine Mechanic Elaine Jet Engine Mechanic Lida Piper 07/09/23 Lida K 07/09/23 Lida K 07/09/23 14:10:01 14:10:01 14:10:01 Entry 7 Entry 8 Entry 9 Case Attendee Karolina Prater Jet Engine Mechanic Cristina Simons RN Role Performed Scrub Technologist Circulating Technologist [...] Perc W/Guide S Last Modified By: Elaine Jet Engine Mechanic Elaine Jet Engine Mechanic Elaine, Jet Engine Mechanic Lida K 07/09/23 Ldia K 07/09/23 Lida K 07/09/23 14:10:01 14:10:01 [...] 0 mL 0 mL Last Modified By: Elaine Jet Engine MechanicMendel Henry, Jet Engine MechanicMendel Henry [place] Lida Piper 07/09/23 Lida Veronique 07/09/23 Lida K 07/09/23 14:10:23 14:10:30 14:10:42 Radiology Procedure Details - IR Entry 1 Radiology Sedation Case Times Sedation Start Time 07/09/23 12:22:00 Sedation Stop Time 07/09/23 13:45:00 Sedation Total Time 1hr 23min Radiology - Fluid/Drainage Radiology Contrast Contrast Used? Yes Dose 100 mL Medication OMNIPAQUE 300 50ML 10/PK Y-530 [facility] 6457-2982-26 Radiology Flouroscopy Fluoroscopy Used? Yes Fluoro Dose [...] S MD Back from: Last Modified By: Elaine Jet Engine MechanicMendel Henry, Jet Engine Mechanic Elaine, Jet Engine Mechanic Lida K 07/09/23 Lida K 07/09/23 Lida [...] by: Marisa Gastelum RN, Tracie N RN Hill, Hannah RN Verbal Order Read JOHANNA JEAN BAPTISTE MD, SALMAN S MD MUFTI, SALMAN S MD Back from: Last Modified By: Elaine Jet Engine Mechanic Hultdaniel, Jet Engine Mechanic Hultman, Jet Engine Mechanic Lida K 07/09/23 Lida K 07/09/23 Lida [...] MD Back from: Last Modified By: Sam Henry Rad Tech Hultman, Rad Tech Amanda K 07/09/23 Lida Veronique 07/09/23 Lida K 07/09/23 13:08:21 13:08:21 13:21:18 [...] MD Back from: Last Modified By: Sam Henry Rad Tech Lida K 07/09/23 Lida K 07/09/23 13:21:18 [...] Simons RN, JAMAL Cuellar Fierstos, Megan R Rad TechAngela Jet Engine Mechanic Grace Instrument Sterility Procedure IR Nephrostomy Tube [...] Radiology - Action Plan Outcomes Met? Yes Sheet Metal Duct Installer Apprentice Cristina Simons RN Completing Procedure Plan Last Modified By: Cristina Simons RN 07/09/23 12:00:09 Case Comments Added Jese CAtheter and 2nd stiff glidewire used from bag and tag product wrappers so patient couldbe charged appropriately. [facility] RT-R(CV) Cut Off Man Finalized By: Ana Tipton Document Signatures Signed By: Sam Henry 07/09/23 14:14 Ana Tipton 07/10/23 09:11 [id number] History and physical note Date of Service [...] problem. She was most recently admitted to [facility] on 04/27 to05/07/23. She was subsequently discharged on daptomycin and ciprofloxacin to continue until 05/16. She was also seen at [facility] on 07/07. At that time, she [...] outpatient management per . She presented to [facility] again 07/08/23 with complaints of dysuria, flank pain, vomiting with suspected UTI/kidney infection per patient. A urinalysis and urine culture were obtained there, however records are not with the patient upon evaluation. She was transferred from [facility] emergency department to [place] emergency department with plan for direct admission to [facility]. She is currently awaiting bed placement at [...] breathing, constipation, new vaginal or vulvar lesions. 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 Menarche age 14. Amenorrheic since initiation of Chemoradiation. Denies mammogram ever. Colonoscopy in 2019. Denies history of STDs. Not sexually active. Family History Mother with breast cancer Sister with cervical cancer Grandmother with cervical cancer Aunts with cervical cancer Cousins with cervical cancer ONCOLOGY HISTORY: - 04/04/2020: CT scan abdomen and pelvis. [facility]. Thickened cervical wall with involvementof the [...] underwent for intracavitary brachii therapy applications with [id number] iridium 192afterloading device utilizing a tandem and [...] Start Date End Date Elapsed Days IMRT COMMERCIAL INSULATOR Pelvis 6X 180 4,500 04/26/2020 06/02/2020 37 3D PM Bst 18X 180 540 06/05/2020 06/07/2020 2 GENETIC TESTING: - Patient had genetic testing sent through [facility]. No reportable somatic or germline pathogenic or [...] ciprofloxacin until 05/16 -07/07/23 Patient presented to [facility] for UTI symptoms. - Urinalysis on 07/07 was remarkable for signs of UTI at [facility]. Patient was placed on BactrimDS twice daily x10 days for outpatient management after discussion with Dr. Hilliard. - 07/07/23 CT abdomen/pelvis obtained at that time showed Left-sided nephrostomy is present extendingto the bladder. There is an irregularly shaped hypodense focus in the upper pole of the kidney without enhancement. Mucosal thickening versus underfilling of the colon. -07/08 Patient again presents to [facility] with transfer to [facility] for direct admission. -Patient notes dysuria, flank [...] was supposed to see Dr. Andrea at [facility]. Referral was sent to this provider to be scheduled end of May/early June. Patient did not dothis. -Discussion with Dr. Martin via telehealth visit, patient was encouraged again to follow-up with [facility] urology for possible nephrectomy in order to [...] seen and examined with senior resident Dr. oJnes Problem List/Past Medical History Ongoing Acute kidney [...] ANGELA ALVARADO DO on 07/09/2023 04:30 AM [id number] Note ORIGINAL PROCEDURE: IR NEPHROSTOMY TUBE CHANGE MODERATE CONSCIOUS SEDATION 07/09/2023 HISTORY: ORDERING SYSTEM PROVIDED HISTORY: Reason for Exam: Overdue for nephrostomy tube exchange, last changed in April Routine nephroureteral stent check unchanged TECHNIQUE: [place] portions of the exam: 1. Retrieval of foreign body. 2. Antegrade nephrostogram. 3. Angioplasty of the ureter. 4. Replacement of nephroureteral stent with up sizing to 10 Chadian CONTRAST: 80 cc SEDATION: Moderate sedation was ordered and supervised by the attending with physician [id number] monitoring. Medications were provided and recorded by Radiology nurses. FLUOROSCOPY DOSE AND TYPE: Radiation Exposure Index: 26.1 minutes of fluoroscopic time was 344 AKA, DESCRIPTION OF PROCEDURE: Informed consent was obtained after a detailed explanation of the procedure including risks, benefits, and alternatives. [place] protocol was observed. Sterile gowns, masks, hats [...] made to attempt exchange of an 8 Chadian nephroureteral stent. Under fluoroscopic guidance, a all [...] significant amount of backwards pressure, the 8 Chadian nephroureteral stent is unable to be pulled. [...] the bladder. At this point, a 7 Chadian 45 cm sheath is now advanced into the bladder from the nephrostomy tube access through the ureter at which point, a 15 mm 6 Chadian snare is advanced and used to snare the broken piece of 014 wire with retrieval of foreign body performed. Next, a new nephroureteral stent is advanced. Given that the 8 Chadian had occluded previously, decision was made to place a 10 Chadian nephroureteral stent. Over the stiff glide, a [...] Sign Date: 07/10/2023 1:33:51 PM Ordering Provider: [facility]09-06-2023 Note ORIGINAL PROCEDURE: VR PORTOGRAPHY MODERATE CONSCIOUS SEDATION 07/09/2023 HISTORY: ORDERING SYSTEM PROVIDED HISTORY: Reason for Exam: port not aspirating TECHNIQUE: The previously accessed MediPort (Lujan needle) was injected with contrast and fluoroscopic images are obtained. CONTRAST: 20 cc of Visipaque SEDATION: Moderate sedation was ordered and supervised by the attending with physician [id number] monitoring. Medications were provided and recorded by Radiology nurses. FLUOROSCOPY DOSE AND TYPE: Radiation Exposure Index: 12 AK, total fluoro time was 22 seconds DESCRIPTION OF PROCEDURE: Informed consent was obtained after a detailed explanation of the procedure including risks, benefits, and alternatives. [place] protocol was observed. Sterile gowns, masks, hats [...] Sign Date: 07/10/2023 10:42:17 AM Ordering Provider: [facility]09-06-2023 Evaluation + Plan note Extracted from: Title:Nuclear Operations Specialist/Onc History and Physical Author:ANGELA ALVARADO DO Date:07/09/23 [...] ciprofloxacin until 05/16 -07/07/23 Patient presented to [facility] for UTI symptoms. - Urinalysis on 07/07 was remarkable for signs of UTI at [facility]. Patient was placed on Bactrim DS twice daily x10 days for outpatient management after discussion with Dr. Hilliard. - 07/07/23 CT abdomen/pelvis obtained at that time showed Left-sided nephrostomy is present extending to the bladder. There is an irregularly shaped hypodense focus in the upper pole of the kidney without enhancement. Mucosal thickening versus underfilling of the colon. -07/08 Patient again presents to [facility] with transfer to [facility] for direct admission. -Patient notes dysuria, flank [...] was supposed to see Dr. Andrea at [facility]. Referral was sent to this provider to be scheduled end of May/early June. Patient did not do this. -Discussion with Dr. Martin via telehealth visit, patient was encouraged again to follow-up with [facility] urology for possible nephrectomy in order to [...] Date:07/24/2023 03:00:00 PM Scheduled Provider:OLE PACE MD Location:[facility] Palliative Appointment Type:PALL New Patient Appointment Date:07/30/2023 11:30:00 AM Scheduled Provider:FLIP MARTIN MD Location:COMMERCIAL INSULATOR ONC Appointment Type:SO OV Follow Up Future Scheduled Tests Laboratory* Pathology Nuclear Operations Specialist Request 05/15/23 * Urinalysis 02/14/23 Radiology* IR [...] BD Bone Density DEXA Axial Skeleton 05/15/23 [facility] 09-06-2023 Procedure note INTERVENTIONAL RADIOLOGY POST PROCEDURE NOTE Pre-Procedure Diagnosis: Routine nephroureteral stent check and change Post Procedure Diagnosis: Same. Enrolled Nurse: Dr. Johanna Jean Baptiste MD Procedure: 1. Retrieval of foreign body. 2. Antegrade nephrostogram. 3. Angioplasty of the left ureter. 4. Nephrostomy tube check and change with upsizing Anesthesia: Conscious sedation Findings: The 8 Chadian nephroureteral stent had occluded distally with a Glidewire unable to penetrate into the bladder. Mukund wire placed with balloon angioplasty of the distal ureter performed to a4 mm balloon. Successful 8 Chadian nephroureteral stent check and change into 10 Chadian nephroureteral stent placement. 014 wire had broken [...] JEAN BAPTISTE MD on 07/09/2023 01:56 PM [facility]Amnupfwm38-20-2033 History and physical note Date of Service [...] problem. She was most recently admitted to [facility] on 04/27 to05/07/23. She was subsequently discharged on daptomycin and ciprofloxacin to continue until 05/16. She was also seen at [facility] on 07/07. At that time, she [...] outpatient management per . She presented to [facility] again 07/08/23 with complaints of dysuria, flank pain, vomiting with suspected UTI/kidney infection per patient. A urinalysis and urine culture were obtained there, however records are not with the patient upon evaluation. She was transferred from [facility] emergency department to [place] emergency department with plan for direct admission to [facility]. She is currently awaiting bed placement at [...] breathing, constipation, new vaginal or vulvar lesions. 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 Menarche age 14. Amenorrheic since initiation of Chemoradiation. Denies mammogram ever. Colonoscopy in 2019. Denies history of STDs. Not sexually active. Family History Mother with breast cancer Sister with cervical cancer Grandmother with cervical cancer Aunts with cervical cancer Cousins with cervical cancer ONCOLOGY HISTORY: - 04/04/2020: CT scan abdomen and pelvis. [facility]. Thickened cervical wall with involvementof the [...] underwent for intracavitary brachii therapy applications with ajku-fadq-pdqm iridium 192afterloading device utilizing a tandem and [...] Start Date End Date Elapsed Days IMRT COMMERCIAL INSULATOR Pelvis 6X 180 4,500 04/26/2020 06/02/2020 37 3D PM Bst 18X 180 540 06/05/2020 06/07/2020 2 GENETIC TESTING: - Patient had genetic testing sent through [facility]. No reportable somatic or germline pathogenic or [...] ciprofloxacin until 05/16 -07/07/23 Patient presented to [facility] for UTI symptoms. - Urinalysis on 07/07 was remarkable for signs of UTI at [facility]. Patient was placed on BactrimDS twice daily x10 days for outpatient management after discussion with Dr. Hilliard. - 07/07/23 CT abdomen/pelvis obtained at that time showed Left-sided nephrostomy is present extendingto the bladder. There is an irregularly shaped hypodense focus in the upper pole of the kidney without enhancement. Mucosal thickening versus underfilling of the colon. -07/08 Patient again presents to [facility] with transfer to [facility] for direct admission. -Patient notes dysuria, flank [...] was supposed to see Dr. Andrea at [facility]. Referral was sent to this provider to be scheduled end of May/early June. Patient did not dothis. -Discussion with Dr. Martin via telehealth visit, patient was encouraged again to follow-up with [facility] urology for possible nephrectomy in order to [...] ANGELA ALVARADO DO on 07/09/2023 04:30 AM [id number] History and physical note Date of Service [...] problem. She was most recently admitted to [facility] on 04/27 to05/07/23. She was subsequently discharged on daptomycin and ciprofloxacin to continue until 05/16. She was also seen at [facility] on 07/07. At that time, she [...] outpatient management per . She presented to [facility] again 07/08/23 with complaints of dysuria, flank pain, vomiting with suspected UTI/kidney infection per patient. A urinalysis and urine culture were obtained there, however records are not with the patient upon evaluation. She was transferred from [facility] emergency department to [facility] emergency department with plan for direct admission to [facility]. She is currently awaiting bed placement at [...] breathing, constipation, new vaginal or vulvar lesions. 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 Menarche age 14. Amenorrheic since initiation of Chemoradiation. Denies mammogram ever. Colonoscopy in 2019. Denies history of STDs. Not sexually active. Family History Mother with breast cancer Sister with cervical cancer Grandmother with cervical cancer Aunts with cervical cancer Cousins with cervical cancer ONCOLOGY HISTORY: - 04/04/2020: CT scan abdomen and pelvis. [facility]. Thickened cervical wall with involvementof the [...] underwent for intracavitary brachii therapy applications with rdlt-zcuc-xhuj iridium 192afterloading device utilizing a tandem and [...] Start Date End Date Elapsed Days IMRT COMMERCIAL INSULATOR Pelvis 6X 180 4,500 04/26/2020 06/02/2020 37 3D PM Bst 18X 180 540 06/05/2020 06/07/2020 2 GENETIC TESTING: - Patient had genetic testing sent through [facility]. No reportable somatic or germline pathogenic or [...] ciprofloxacin until 05/16 -07/07/23 Patient presented to [facility] for UTI symptoms. - Urinalysis on 07/07 was remarkable for signs of UTI at [facility]. Patient was placed on BactrimDS twice daily x10 days for outpatient management after discussion with Dr. Hilliard. - 07/07/23 CT abdomen/pelvis obtained at that time showed Left-sided nephrostomy is present extendingto the bladder. There is an irregularly shaped hypodense focus in the upper pole of the kidney without enhancement. Mucosal thickening versus underfilling of the colon. -07/08 Patient again presents to [facility] with transfer to [facility] for direct admission. -Patient notes dysuria, flank [...] was supposed to see Dr. Andrea at [facility]. Referral was sent to this provider to be scheduled end of May/early June. Patient did not dothis. -Discussion with Dr. Martin via telehealth visit, patient was encouraged again to follow-up with [facility] urology for possible nephrectomy in order to [...] ANGELA ALVARADO DO on 07/09/2023 04:30 AM [id number] History and physical note Date of Service [...] problem. She was most recently admitted to [facility] on 04/27 to05/07/23. She was subsequently discharged on daptomycin and ciprofloxacin to continue until 05/16. She was also seen at [facility] on 07/07. At that time, she [...] outpatient management per . She presented to [facility] again 07/08/23 with complaints of dysuria, flank pain, vomiting with suspected UTI/kidney infection per patient. A urinalysis and urine culture were obtained there, however records are not with the patient upon evaluation. She was transferred from [facility] emergency department to [place] emergency department with plan for direct admission to [facility]. She is currently awaiting bed placement at [...] breathing, constipation, new vaginal or vulvar lesions. 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 Menarche age 14. Amenorrheic since initiation of Chemoradiation. Denies mammogram ever. Colonoscopy in 2020. Denies history of STDs. Not sexually active. Family History Mother with breast cancer Sister with cervical cancer Grandmother with cervical cancer Aunts with cervical cancer Cousins with cervical cancer ONCOLOGY HISTORY: - 04/04/2020: CT scan abdomen and pelvis. [facility]. Thickened cervical wall with involvementof the [...] underwent for intracavitary brachii therapy applications with clnb-ichs-jukr iridium 192afterloading device utilizing a tandem and [...] Start Date End Date Elapsed Days IMRT COMMERCIAL INSULATOR Pelvis 6X 180 4,500 04/26/2020 06/02/2020 37 3D PM Bst 18X 180 540 06/05/2020 06/07/2020 2 GENETIC TESTING: - Patient had genetic testing sent through [facility]. No reportable somatic or germline pathogenic or [...] ciprofloxacin until 05/16 -07/07/23 Patient presented to [facility] for UTI symptoms. - Urinalysis on 07/07 was remarkable for signs of UTI at [facility]. Patient was placed on BactrimDS twice daily x10 days for outpatient management after discussion with Dr. Hilliard. - 07/07/23 CT abdomen/pelvis obtained at that time showed Left-sided nephrostomy is present extendingto the bladder. There is an irregularly shaped hypodense focus in the upper pole of the kidney without enhancement. Mucosal thickening versus underfilling of the colon. -07/08 Patient again presents to [facility] with transfer to [facility] for direct admission. -Patient notes dysuria, flank [...] was supposed to see Dr. Andrea at [facility]. Referral was sent to this provider to be scheduled end of May/early June. Patient did not dothis. -Discussion with Dr. Martin via telehealth visit, patient was encouraged again to follow-up with [facility] urology for possible nephrectomy in order to [...] ANGELA ALVARADO DO on 07/09/2023 04:30 AM [id number] History and physical note Date of Service [...] problem. She was most recently admitted to [facility] on 04/27 to05/07/23. She was subsequently discharged on daptomycin and ciprofloxacin to continue until 05/16. She was also seen at [facility] on 07/07. At that time, she [...] outpatient management per . She presented to [facility] again 07/08/23 with complaints of dysuria, flank pain, vomiting with suspected UTI/kidney infection per patient. A urinalysis and urine culture were obtained there, however records are not with the patient upon evaluation. She was transferred from [facility] emergency department to [place] emergency department with plan for direct admission to [facility]. She is currently awaiting bed placement at [...] breathing, constipation, new vaginal or vulvar lesions. 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 Menarche age 14. Amenorrheic since initiation of Chemoradiation. Denies mammogram ever. Colonoscopy in 2019. Denies history of STDs. Not sexually active. Family History Mother with breast cancer Sister with cervical cancer Grandmother with cervical cancer Aunts with cervical cancer Cousins with cervical cancer ONCOLOGY HISTORY: - 04/04/2020: CT scan abdomen and pelvis. [facility]. Thickened cervical wall with involvementof the [...] underwent for intracavitary brachii therapy applications with quyi-hxse-lqzo iridium 192afterloading device utilizing a tandem and [...] Start Date End Date Elapsed Days IMRT COMMERCIAL INSULATOR Pelvis 6X 180 4,500 04/26/2020 06/02/2020 37 3D PM Bst 18X 180 540 06/05/2020 06/07/2020 2 GENETIC TESTING: - Patient had genetic testing sent through [facility]. No reportable somatic or germline pathogenic or [...] ciprofloxacin until 05/16 -07/07/23 Patient presented to [facility] for UTI symptoms. - Urinalysis on 07/07 was remarkable for signs of UTI at [facility]. Patient was placed on BactrimDS twice daily x10 days for outpatient management after discussion with Dr. Hilliard. - 07/07/23 CT abdomen/pelvis obtained at that time showed Left-sided nephrostomy is present extendingto the bladder. There is an irregularly shaped hypodense focus in the upper pole of the kidney without enhancement. Mucosal thickening versus underfilling of the colon. -07/08 Patient again presents to [facility] with transfer to [facility] for direct admission. -Patient notes dysuria, flank [...] was supposed to see Dr. Andrea at [facility]. Referral was sent to this provider to be scheduled end of May/early June. Patient did not dothis. -Discussion with Dr. Martin via telehealth visit, patient was encouraged again to follow-up with [facility] urology for possible nephrectomy in order to [...] ANGELA ALVARADO DO on 07/09/2023 04:30 AM [id number] Hospital Discharge instructions Patient Education 05/07/2023 16:32:38 [...] Treatment for this condition includes: Antibiotic medicine. Xsnx-ntj-dvlqlwo medicines to treat discomfort. Drinking enough water [...] Follow these instructions at home: Medicines Take tstn-fxr-zlquhog and prescription medicines only as told by [...] 07/30/2006 Document Revised: 10/07/2019 Document Reviewed: 04/29/2019 [employer] Patient Education 2020 [employer]. Follow Up Care 04/27/2023 16:04:23 With:[facility] [phone] Address:Unknown When:05/13/2023 14:00:00 Comments:This is the initial appointment for your chest port needle/dressing change if you are unable to schedule yourself for Friday with [facility] when you call on Friday. Please call to cancel this appointment if you are able to get an appointment with [facility]. With:[facility] (labwork and port needle/dressing changes) [phone] Address: When: Unknown Comments:The fishing vessel captain who would schedule you for this dressing change is out of the office this week. Nursing hog room supervisor was unable to schedule you as well. You will need to call them to schedule your appointments after discharge for future weekly dressing changes every Friday. Labwork does not have to be scheduled ahead of time (allow walk-ins). With:FLIP MARTIN MD Address: [address] [place] [address] [place] [address]- [phone] When:05/15/2023 15:20:00 [facility] 07-05-2023 Note Discharge Instructions Thank you for allowing [facility] to assist you with your healthcare needs. [...] 05/15/2023 03:20 PM EDT FLIP MARTIN MD [facility] [address] [place] [phone] IR Neph Cath-Neph Ureter W/Guide Left 06/24/2023 11:00 AM EDT IR Follow Up Appointments Follow Up with FLIP MARTIN MD When 05/15/2023 03:20 PM EDT Where: [address] [place] [address] [place] [address]- [phone] Follow Up with [facility] [phone] When 05/13/2023 02:00 PM EDT Why: This is the initial appointment for your chest port needle/dressing change if you are unable to schedule yourself for Friday with [facility] when you call on Friday. Please call to cancel this appointment if you are able to get an appointment with [facility]. Follow Up with [facility] (labwork and port needle/dressing changes) [phone] When Why: The fishing vessel captain who would schedule you for this dressing change is out of the office this week. Nursing hog room supervisor was unable to schedule you as [...] can cap the tube - notify IR [id number], 04/29/23 10:34:14 EDT The Following Treatments Have Been Ordered for You Discharge Labs Discharge Outpatient Labwork - Ordered -- Chest Port Care/ Labs, Chemo/ATB infusion, Your appointment is: 05/13/23 14:00:00 EDT, Stop Datefor chest port care/labs is 05/16/2023., 05/07/23 14:48:00 EDT Discharge Outpatient Labwork - Ordered -- CBC, differential, hepatic panel, renal panel and CPK every Friday and send results to fax number [phone] Ruvalcaba CBC, differential, hepatic panel, [...] 12 hours Duration: 10 Days Pickup at [facility] New DAPTOmycin (DAPTOmycin 500 mg intravenous injection) 383.4 Milligram Intravenous Every 24 hours Duration: 10 Days Pickup at [facility] Changed LORazepam (LORazepam 1 mg [...] hours as needed for Pain Pharmacy Information [facility]: [address] [place] [address] [phone] Please take this list to your next [...] Treatment for this condition includes: Antibiotic medicine. Uatf-lhj-pjyoulc medicines to treat discomfort. Drinking enough water [...] Follow these instructions at home: Medicines Take ubic-dez-hfghhxj and prescription medicines only as told by [...] 07/30/2006 Document Revised: 10/07/2019 Document Reviewed: 04/29/2019 [employer] Patient Education 2020 [employer] Additional Information VACCINATE! IT SAVES LIVES! Members of the community who have not yet received the COVID-19 vaccine and would like to receive it can visit one of [facility] vaccine clinics. There are many vaccine clinic locations within the [facility]. For locations and available times, please visit [email or web address] It is important to note that some COVID mobile vaccine clinics are held outdoors and may be canceled in rainy or stormy conditions. To learn more about pediatric vaccinations (ages 5-11), we invite you to visit the [facility] webpage. [email or web address] [email or web address] learn more about the COVID-19 vaccine, we invite you to visit the CDC website for a list of frequently asked questions.https://www.cdc.gov/coronavirus/2019-ncov/vaccines/faq.html [facility] Patient Portal Access Instructions: Stay connected with your healthcare team and access your personal medical information anytime with the [facility] Patient Portal. Please follow the directions below to create your [employer] account: 1.Access the email account you provided upon registration to the hospital/physician office.2.Look for an invitation email from [facility].3.Open the email and access the invitation link: AcceptInvitation to [employer].4.Fill in the required quintero to create your account. To access your account, visit [email or web address]. Click the blue button labeled Access Patient Portal and then log in with the username and password that you created in the steps above. You will be able to view your test results, lab results, a summary of your visits, upcoming appointments and more. There is also a convenient messaging option where you can send secure messages to your [employer]. In addition, you will have the ability to download any documents or summaries to your computer and/or send the information securely to a physician. Remember that your healthcare information is confidential, so carefully consider who you will allowto register on the [facility] Patient Portal for access to your information. You can also access the [facility] Patient Portal on the [facility] [employer] joya. Simply click on Patient Portal and then log into your account. If you would like to receive a full copy of your medical records, please contact the [facility] Medical Records Department by calling [phone], Friday through Friday between 8 a.m. and [...] Call your local pharmacy or go to [email or web address] to find one close to you.3.Make use of household items: Use cat litter or old coffee grounds to dispose medications if other options arenot available. Mix your drugs with these household products, seal them in an airtight container andthrow it into the garbage. Call [facility]: [phone] to be sure your drugs can be [...] aware that I should contact my doctor. Patient/[employer] Signature: Date/Time: Relationship to Patient: Witness Name/Signature: Date/Time: [facility]wytksfi64-27-0184 Note Date of Service 05/07/2023 Chief Complaint [...] NOLAN MOODY MD on 05/07/2023 06:31 AM [facility]Lkizkokx86-33-7935 Note Date of Service 05/07/2023 Chief Complaint [...] 4.1 BUN: 15.0 Creatinine Lvl (s): 0.96 07 05:53 WBC: 5.5 Hgb: 11.7 L Hct: [...] NOLAN MOODY MD on 05/07/2023 06:31 AM [facility]Qvwjjiqt36-75-2128 Note Date of Service 05/06/2023 Chief Complaint [...] sent to Dr. Lyles. Plan for discharge tomorrow after discussing using Port-A-Cath for IV antibiotics with infectious disease. For DEXA scan outpatient considering new finding of possible sacral fracture. Digitally Signed by PRIMO CANELA MD on 05/06/2023 10:36 AM Digitally Signed by CLOTILDE GARCIA MD [facility]Xjcmwldk63-32-1872 Note Date of Service 05/05/23 Chief Complaint UTI Subjective Patient seen and examined. Patient tearful on questioning. She states that the pain meds that she is currently receiving are not helping her, also feels like the nurses are talking about her. She did get a dose of IV Dilaudid overnight, and [...] discuss further with Dr. Martin. Transfer to [facility] Will discuss above plan with attending. Please see addendum for any changes/adjustments to the above noted plans. Digitally Signed by TIMO MENCHACA DO on 05/05/2023 06:48 AM [facility]burgNxvtlilp57-43-9420 Infectious disease Progress note Date of Service [...] 4.0 BUN: 12.0 Creatinine Lvl (s): 0.77 07/02 05:06 WBC: 5.8 Hgb: 12.4 Hct: 38.0 [...] Friday and send results to fax number [phone] Ruvalcaba Please call Dr. Ruvalcaba's office for a follow-up appointment in 2 weeks, Phone number [phone]. Digitally Signed by Emili Clark RN on 05/05/2023 10:48 AM Digitally Signed by NATHAN BASILIO MD on 05/05/2023 02:48 PM [id number] Note Date of Service 05/05/23 Chief Complaint [...] TIMO MENCHACA DO on 05/05/2023 06:48 AM [facility]Skzazfae72-14-6688 Infectious disease Consult note Date of Service 05/03/2023 Reason for Consultation Complicated UTI-polymicrobial Referring Physician Dr. Martin History of Present Illness This is a 32 yo female with history of Stage III cervical cancer s/p chemoradiation currently in remission, presents to [facility] emergency room for concern for UTI and [...] for antimicrobial management. Discussed the case with BRUSH FABRICATION SUPERVISOR team yesterday, patient continues to note improvement so far on current antibiotic therapy with 3 attention and abdominal discomfort Review of Systems Urinary retention abdominal pain and bilateral flank pain and generalized fatigue, otherwise point review of system was recent fevers [...] s/p chemoradiation currently in remission, presents to [facility] emergency room for concern for UTI and [...] she agreed to the plan Discussed with BRUSH FABRICATION SUPERVISOR team yesterday Thank you for this consultation, [...] (06/16/01) Digitally Signed by Brenda López on 05/03/2023 09:45 AM Digitally Signed by MARGOTH RUVALCABA BA, MD on 05/03/2023 10:12 AM [id number] Palliative care Progress note Date of Service [...] worsening abdominal and back pains. Patient returns [facility] on 04[facility]27[facility]2023 with similar symptoms of abdominal pain and flank pain. Patient is status post nephro tube exchange, continues on antibiotic for UTI.Patient continues with uncontrolled cancer related pain, palliative care consulted for pain management. Goals of care: Continues to receive goal congruent care. Patient states plan is for outpatient evaluation at [facility]. Palliative care consulted for symptom management, patient verbalizes pain is improving Next of kin: Patient's parents are . Patient has no children, she is not . She has 1biological sister, Zandra. She has stepdad who remains supportive and involved in her life. Per [place] revised code in the event she is [...] by NUBIA POWERS on 05/01/2023 10:55 AM [facility]Igysdofj73-63-8839 Note IR Procedure Record Summary Primary Physician: MADELINE APARICIO MD Finalized Date/Time: 05/01/23 09:20:17 Pt. Name: ANTONELLALALY /Sex: 1990 Female Med Rec #: [id number] Physician: FLIP MARTIN MD Financial #: [id number] Pt. Type: I Room/Bed: [facility]/A Admit/Disch: 04/27/23 16:03:09 - Institution: Allergies identified [...] Attendee Sam Henry, JAMAL Piper Role Performed Thread Winder Automatic 1 Procedure Nurse Details Time In 04/29/23 [...] mL Medication OMNIPAQUE 300 50ML 10/PK Y-530 [facility] [id number] Radiology Flouroscopy Fluoroscopy Used? Yes Fluoro Dose (mGy) 54.12 Fluoro Time 3.1mins Radiology Local Local Used? Yes Local Type: lidocaine 2% Local Dose 10cc Radiology Procedure Site Site/Location Lt side back Site Condition No complications Suture 0 Prolene Dressing Type Gauze sponge 4 X 4, Tagaderm Technologist Notes [id number] [place] Nephroureterostomy Stent inserted on the LT side [...] Corey Snider, RN Corey Verbal Order Read MARKUS, MADELINE APARICIO, MADELINE APARICIO, MADELINE LORA Back from: Last [...] Corey Snider, RN Corey Verbal Order Read MARKUS, MADELINE MAYS MD, MD, MADELINE LORA Back from: Last Modified By: [...] Read MADELINE APARICIO MD, MITRYAN MD KAR, MITRYAN MD Back from: Last Modified By: JAMAL [...] Radiology - Action Plan Outcomes Met? Yes Sheet Metal Duct Installer Apprentice JAMAL Feliciano Completing Procedure Plan Last Modified By: JAMAL Feliciano 04/29/23 10:19:46 Case Comments Finalized By: Karolina Prater Document Signatures Signed By: JAMAL Harding 04/29/23 13:59 JAMAL Harding 04/29/23 15:12 Karolina Prater 04/29/23 15:28 Justice, Waldemar G 04/29/23 10:38 Justice, Waldemar G 04/29/23 10:39 Justice, Waldemar G 04/29/23 10:39 Sam Granger 04/29/23 10:42 Justice, Waldemar G 04/29/23 10:38 Karolina Prater 04/29/23 13:16 Karolina Prater 04/29/23 13:17 Karolina Prater 04/29/23 13:17 JAMAL Harding 04/29/23 13:53 JAMAL Harding 04/29/23 13:56 JAMAL Harding 04/29/23 13:59 Karolina Prater 05/01/23 09:20 [id number] Note ORIGINAL HISTORY: ORDERING SYSTEM PROVIDED HISTORY: Reason for Exam: Patient with UTI and nephrostomy tube not replaced since 02/17 COMPARISON: CT 04/27/23; last change 02/17/23 PROCEDURE: 1. Nephroureteral drain tube exchange under fluoroscopy LATERALITY: Left TEAM TRUCK DRIVER: Dr. Aparicio ROUNDER HAND: None The procedure, risks, and alternatives, were discussed and all questions were answered. Informed consent obtained. Maximal sterile barrier technique, hand hygiene, skin prep, and sterile ultrasound techniques (if used) utilized. Percutaneous site was sterilely prepped and draped. Time out performed. Manager Army image demonstrates stable appearance of the nephroureteral [...] Stable, unchanged MATERIALS: 8.5Fr x 24 cm Softdesk NU catheter Amplatz ANESTHESIA: Moderate sedation was administered and monitored by dedicated nursing personnel under direct supervision by the hand router operator. SEDATION TIME (min): 50 FLUORO (min): [...] Sign Date: 04/30/2023 3:21:11 PM Ordering Provider: [facility]06-28-2023 Note Nephrostomy site with gauze & transparent dressing, no complications. Bag with yellow urine noted. Digitally Signed by JAMAL Phipps on 04/30/2023 02:47 PM [facility]syfyxek53-30-6287 Palliative care Consult note Date of Service [...] worsening abdominal and back pains. Patient returns [facility] 04[facility]2023 with similar symptoms of abdominal [...] worsening abdominal and back pains. Patient returns [facility] on 04/27/2023 with similar symptoms of abdominal [...] biological sister, Zandra. I educated patient per [place] revised code in the event she is [...] Cancer related pain I have reviewed the [place] Automated Rx Reporting System (OARRS) report for [...] Order Digitally Signed by NUBIA POWERS on 04/30/2023 11:30 AM Digitally Signed by NUBIA POWERS on 04/30/2023 11:33 AM [facility]Pwpuonzi11-20-2665 Note Patient not in room. Plan for Nephrostomy exchange today. Will reassess later. Digitally Signed by JAMAL Phipps on 04/29/2023 11:07 AM [facility]Wmifzsox03-95-6379 Note ORIGINAL HISTORY: ORDERING SYSTEM PROVIDED HISTORY: Reason for Exam: Patient with UTI and nephrostomy tube not replaced since 02/17 COMPARISON: CT 04/27/23; last change 02/17/23 PROCEDURE: 1. Nephroureteral drain tube exchange under fluoroscopy LATERALITY: Left TEAM TRUCK DRIVER: Dr. Aparicio ROUNDER HAND: None The procedure, risks, and alternatives, were discussed and all questions were answered. Informed consent obtained. Maximal sterile barrier technique, hand hygiene, skin prep, and sterile ultrasound techniques (if used) utilized. Percutaneous site was sterilely prepped and draped. Time out performed. Manager Army image demonstrates stable appearance of the nephroureteral [...] nursing personnel under direct supervision by the hand router operator. SEDATION TIME (min): 50 FLUORO (min): [...] Sign Date: 04/30/2023 3:21:11 PM Ordering Provider: [facility]06-27-2023 Procedure note Brief IR Post Procedure Note - Inpatient/Obs Pre Procedure Dx: Cancer, left hydro Post Procedure Dx: Same Procedure: 1. Left PCNU editor in chief: Markus Grading Supervisor: None Anesthesia: Local, moderate sedation EBL: Minimal [...] MD [facility] ([facility]) [email or web address] Pager: [phone] [facility] Dept (26/05): [id number] [facility]-VIR [phone] [facility]-VIR Digitally Signed by MADELINE APARICIO MD on 04/29/2023 10:33 AM [id number] History and physical note Date of Service 04/27/23 Chief Complaint Unable to uinate X 9 days. 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 History of Present Illness 32 yo Woman with history of Stage IIIB cervical cancer s/p chemoradiation currently in remission, presents to [place] emergency room for concern for UTI and [...] subsequently admitted for treatment of complicated UTI. 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 Menarche age 14. Amenorrheic since initiation of Chemoradiation. Denies mammogram ever. Colonoscopy in 2019. Denies history of STDs. Not sexually active. Family History Mother with breast cancer Sister with cervical cancer Grandmother with cervical cancer Aunts with cervical cancer Cousins with cervical cancer ONCOLOGY HISTORY: - 04/04/2020: CT scan abdomen and pelvis. [facility]. Thickened cervical wall with involvementof the [...] underwent for intracavitary brachii therapy applications with xgku-azck-prgx iridium 192afterloading device utilizing a tandem and [...] Start Date End Date Elapsed Days IMRT COMMERCIAL INSULATOR Pelvis 6X 180 4,500 04/26/2020 06/02/2020 37 3D PM Bst 18X 180 540 06/05/2020 06/07/2020 2 GENETIC TESTING: - Patient had genetic testing sent through [facility]. No reportable somatic or germline pathogenic or [...] SASHA MON MD on 04/28/2023 03:41 AM [facility]Lkqwpadz81-62-7328 Evaluation + Plan noteExtracted from: Title:History and [...] in the past seeing a urologist in [place] to consider nephrectomy. She has had a consultation at previously, but she states that she would rather see somebody at [facility] because she did not necessarily feel comfortable [...] Please also put in a consult to COMMERCIAL INSULATOR oncology nurse navigator. I explained the plan to the patient. I answered all of her questions. FLIP MARTIN MD FACOG Future Appointments Appointment Date:05/13/2023 02:00:00 PM Scheduled Provider: Location:INF Appointment Type:INF Labwork Appointment Date:05/15/2023 03:20:00 PM Scheduled Provider:FLIP MARTIN MD Location:COMMERCIAL INSULATOR ONC Appointment Type:SO OV Follow Up Appointment [...] IR Neph Cath-Neph Ureter W/Guide Left 06/24/23 [facility] 06-26-2023 Progress note Date of Service APRIL [...] FLIP MARTIN MD on 04/28/2023 07:51 AM [facility]Mmqtelcm61-28-6876 History and physical note Date of Service 04/27/23 Chief Complaint Unable to uinate X 9 days. 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 History of Present Illness 32 yo Woman with history of Stage IIIB cervical cancer s/p chemoradiation currently in remission, presents to [place] emergency room for concern for UTI and [...] subsequently admitted for treatment of complicated UTI. 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 Menarche age 14. Amenorrheic since initiation of Chemoradiation. Denies mammogram ever. Colonoscopy in 2020. Denies history of STDs. Not sexually active. Family History Mother with breast cancer Sister with cervical cancer Grandmother with cervical cancer Aunts with cervical cancer Cousins with cervical cancer ONCOLOGY HISTORY: - 04/04/2020: CT scan abdomen and pelvis. [facility]. Thickened cervical wall with involvementof the [...] underwent for intracavitary brachii therapy applications with fdvx-lxya-tili iridium 192afterloading device utilizing a tandem and [...] Start Date End Date Elapsed Days IMRT COMMERCIAL INSULATOR Pelvis 6X 180 4,500 04/26/2020 06/02/2020 37 3D PM Bst 18X 180 540 06/05/2020 06/07/2020 2 GENETIC TESTING: - Patient had genetic testing sent through [facility]. No reportable somatic or germline pathogenic or [...] SASHA MON MD on 04/28/2023 03:41 AM [facility]Fijnktea81-68-5508 Note ORIGINAL EXAMINATION: CT OF THE ABDOMEN [...] Sign Date: 04/27/2023 11:04:03 PM Ordering Provider: [facility]06-25-2023 Note ORIGINAL EXAMINATION: CT OF THE [...] Sign Date: 04/27/2023 11:04:03 PM Ordering Provider: DAOSAHIL [facility]NK[facility]Gdmrxxmx48-28-3573 History and physical note Date of Service 04/27/23 Chief Complaint Unable to uinate X 9 days. 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 History of Present Illness 32 yo Woman with history of Stage IIIB cervical cancer s/p chemoradiation currently in remission, presents to [place] emergency room for concern for UTI and [...] subsequently admitted for treatment of complicated UTI. 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 Menarche age 14. Amenorrheic since initiation of Chemoradiation. Denies mammogram ever. Colonoscopy in 2020. Denies history of STDs. Not sexually active. Family History Mother with breast cancer Sister with cervical cancer Grandmother with cervical cancer Aunts with cervical cancer Cousins with cervical cancer ONCOLOGY HISTORY: - 04/04/2020: CT scan abdomen and pelvis. [facility]. Thickened cervical wall with involvementof the [...] underwent for intracavitary brachii therapy applications with jmkw-ehfv-ssbr iridium 192afterloading device utilizing a tandem and [...] Start Date End Date Elapsed Days IMRT COMMERCIAL INSULATOR Pelvis 6X 180 4,500 04/26/2020 06/02/2020 37 3D PM Bst 18X 180 540 06/05/2020 06/07/2020 2 GENETIC TESTING: - [facility] No reportable somatic or germline pathogenic or [...] SASHA MON MD on 04/28/2023 03:41 AM [facility]Qsawbjjp06-79-4210 Hospital Discharge instructions Patient Education 03/05/2023 17:42:39 [...] or mouth. Supplies needed: Soap. Alcohol-based hand lump machine operator. Standard cleaning products. Disinfectants, such as bleach. [...] water are not available, use alcohol-based hand lump machine operator. Avoid touching your face, mouth, nose, or [...] water. Air-dry your dishes or use a forging dies final finisher. Do not share dishes or eating utensils. [...] certain germs and not others. Read the timber watchman's instructions or read online resources to determine [...] minutes after each use, or according to timber watchman's instructions. Wash reusable cleaning cloths and sanitize [...] water are not available, use alcohol-based hand lump machine operator. In general: Stay home except to get [...] for Professionals in Infection Control and Epidemiology: professionals.site.apic.org/dkgrfxzk-wi-kajg/vip-zmhffgolvz-puumyto/home/ Summary It is important to know how [...] Document Reviewed: 01/14/2020 Elsevier Patient Education 2020 Elsevier Inc. Follow Up Care 02/23/2023 11:57:17 With:MARGOTH RUVALCABA BA, MD, Infectious Disease, Infectious Disease Group Address: [facility] [address] [place] [address]- When: Unknown Comments:Call for a follow up appointment within 1 week With:OLE SUTTON MD, [facility] Address: [address] [facility] [place] [address]- [phone] When: Unknown Comments:Call for a follow up appointment within 1 week With:[facility] Address: [address] [place] [address]- [phone] When:03/10/2023 09:00:00 Comments:Go to the ambulatory unit for your once weekly labwork and port dressing change on 03/10 at 9AM With:FLIP MARTIN MD Address: [address] [place] [address] [place] [address]- [phone] When:03/05/2023 15:30:00 Comments:Follow-up at scheduled appointment on March 05 at 3:30pm or call the office sooner if problems arise. [facility] 05-03-2023 Nurse Progress note Patient went home on IV antibiotics so she needed to stay accessed with her port for delivery of said IV antibiotics. Digitally Signed by Dania Hall RN on 03/05/2023 06:51 PM [facility]Lwtvffrn93-08-8453 Note Date of Service 03/05/2023 Chief Complaint [...] FARZANA CAST DO on 03/05/2023 06:40 AM [facility]Enemgxqb95-52-9322 Note Discharge Instructions Thank you for allowing [facility] to assist you with your healthcare needs. [...] 03/19/2023 03:10 PM EDT FLIP MARTIN MD [facility] [address] [place] [address] IR Neph Cath-Neph Ureter W/Guide Left 05/12/2023 11:00 AM EDT IR Follow Up Appointments Follow Up with [facility] When 03/10/2023 09:00 AM EDT Why: Go to the ambulatory unit for your once weekly labwork and port dressing change on 03/10 at 9AM Where: [address] [place] [address]- [phone] Follow Up with FLIP MARTIN MD When 03/05/2023 03:30 PM EDT Why: Follow-up at scheduled appointment on March 05 at 3:30pm or call the office sooner if problems arise. Where: [address] [place] [address] [place] [address]- [phone] Follow Up with MARGOTH RUVALCABA BA, MD, Infectious Disease, Infectious Disease Group When Why: Call for a follow up appointment within 1 week Where: [facility] [address] [place] [address]- Follow Up with OLE SUTTON MD, [facility] When Why: Call for a follow up appointment within 1 week Where: [address] [facility] [address] [place] [address] [phone] The Following Activity and Diet Have Been [...] or mouth. Supplies needed: Soap. Alcohol-based hand lump machine operator. Standard cleaning products. Disinfectants, such as bleach. [...] water are not available, use alcohol-based hand lump machine operator. Avoid touching your face, mouth, nose, or [...] water. Air-dry your dishes or use a forging dies final finisher. Do not share dishes or eating utensils. [...] certain germs and not others. Read the timber watchman's instructions or read online resources to determine [...] minutes after each use, or according to timber watchman's instructions. Wash reusable cleaning cloths and sanitize [...] water are not available, use alcohol-based hand lump machine operator. In general: Stay home except to get [...] for Professionals in Infection Control and Epidemiology: professionals.site.apic.org/hhfoditu-bb-ozkc/btg-vxbuzeujpm-yodnqsq/home/ Summary It is important to know how [...] Document Reviewed: 01/14/2020 Elsevier Patient Education 2020 [employer] Additional Information VACCINATE! IT SAVES LIVES! Members of the community who have not yet received the COVID-19 vaccine and would like to receive it can visit one of [facility] vaccine clinics. There are many vaccine clinic locations within the [facility]. For locations and available times, please visit [email or web address].[place].gov/. It is important to note that some COVID mobile vaccine clinics are held outdoors and may be canceled in rainy or stormy conditions. To learn more about pediatric vaccinations (ages 5-11), we invite you to visit the [employer] webpage. https://www.[employer].org/pages/3017-Rkboq-Kdkutepeilq-Xnzasmolhn-Wfctu-Hbm stions.htmlTo learn more about the COVID-19 vaccine, we invite you to visit the CDC website for a list of frequently asked questions. https://www.cdc.gov/coronavirus/2019-ncov/vaccines/faq.html [employer] Patient Portal Access Instructions: Stay connected with your healthcare team and access your personal medical information anytime with the [employer] Patient Portal.If you would like a full copy of your medical records, please contact the [facility] Medical Records Department, Friday through Friday between 8a.m. and 4:30p.m. Please follow the directions below to access the portal: 1.Access the email account you provided upon registration to the hospital.2.Look for an invitation email from [facility].3.Open the email and access the invitation link: Accept Invitation to [employer]4.Fill in the required quintero to create your account. Sign into www.[employer] with your username and password that you [...] you will allow to register on the [employer] Patient Portal for access to your information. You can also access the [employer] Patient Portal on the [employer] joya. Simply click on Health Records under [employer] and then click on the [employer] logo. HOW TO SAFELY DISPOSE OF PRESCRIPTION [...] Call your local pharmacy or go to [email or web address] to find one close to you.3.Make use of household items: Use cat litter or old coffee grounds to dispose medications if other options arenot available. Mix your drugs with these household products, seal them in an airtight container andthrow it into the garbage. Call [facility]: [phone] to be sure your drugs can be [...] aware that I should contact my doctor. Patient/[employer] Signature: Date/Time: Relationship to Patient: Witness Name/Signature: Date/Time: [facility]Ltumkgxc14-93-4860 Note Date of Service 03/05/2023 Chief Complaint [...] FARZANA CAST DO on 03/05/2023 06:40 AM [facility]Nwtzviel21-53-6576 Note Date of Service 03/05/2023 Chief Complaint [...] FARZANA CAST DO on 03/05/2023 06:40 AM [facility]Jvhqnhec73-50-5785 Note Date of Service 03/04/2023 Chief Complaint [...] EDT Consult to Palliative Care SCD Machine ([id number]) SCD Sleeves - Knee ([id number]) Patient is a 32 yo woman with [...] FARZANA CAST DO on 03/04/2023 06:43 AM [facility]Eyvmthbw37-10-5994 Palliative care Progress note Date of Service [...] primary team 5. Cancer related pain Currently, Lizy is receiving MS Contin 30 mg every 12 hours, gabapentin 300 mg nightly, and oxycodone 10 mg every 4 hours as needed. In total, she is utilized 135 oral morphine equivalents. After speaking with Lizy, she inform me that she has taken [...] of her medications be sent to the [place] pharmacy so that it is less complicated [...] SANTINO SAWYER MD on 03/04/2023 09:57 AM [facility]Pekuhbyn38-11-4573 Palliative care Progress note Date of Service [...] primary team 5. Cancer related pain Currently, Lizy is receiving MS Contin 30 mg every 12 hours, gabapentin 300 mg nightly, and oxycodone 10 mg every 4 hours as needed. In total, she is utilized 135 oral morphine equivalents. After speaking with Lizy, she inform me that she has taken [...] of her medications be sent to the [place] pharmacy so that it is less complicated [...] SANTINO SAWYER MD on 03/04/2023 09:57 AM [facility]burgSnjjbnex91-73-4815 Palliative care Progress note Date of Service [...] primary team 5. Cancer related pain Currently, Lizy is receiving MS Contin 30 mg every 12 hours, gabapentin 300 mg nightly, and oxycodone 10 mg every 4 hours as needed. In total, she is utilized 135 oral morphine equivalents. After speaking with Lizy, she inform me that she has taken [...] of her medications be sent to the [place] pharmacy so that it is less complicated [...] SANTINO SAWYER MD on 03/04/2023 09:57 AM [facility]Euunyxjd55-86-0129 Note Date of Service 03/04/2023 Chief Complaint [...] EDT Consult to Palliative Care SCD Machine ([id number]) SCD Sleeves - Knee ([id number]) Patient is a 32 yo woman with a history of stage IIIB cervical cancer s/p chemoradiation in remission, has a history obstructive uropathy with left nephrostomy tube in place. Admitted for pelvic pain and complicated urinary tract infection. Admit to regular floor Condition: Stable Vitals: q8hr Activity: Up Ad Marisa Diet: Regular IVF: NS 75/hr, Ertapenem 1g qd DVT Prophylaxis: Minal, Susannah 40 qd (Refused 03/02) Consults: Palliative, Infectious Disease Dispo: Continue pain management. Continue Ertapenem. Will need outpatient IV antibiotic therapy. Outpatient IV antibiotic education prior to discharge. Reconsult palliative for patient reported uncontrolled pain Digitally Signed by FARZANA CAST DO on 03/04/2023 06:43 AM [facility]Euzfhmfn62-87-1627 Note Date of Service 03/04/2023 Chief Complaint [...] EDT Consult to Palliative Care SCD Machine ([id number]) SCD Sleeves - Knee ([id number]) Patient is a 32 yo woman with [...] FARZANA CAST DO on 03/04/2023 06:43 AM [facility]Zyencdxj99-55-2958 Note Date of Service 03/03/2023 Chief Complaint [...] FARZANA CAST DO on 03/03/2023 06:56 AM [facility]Rlidsgcr17-86-6612 Note Date of Service 03/03/2023 Chief Complaint [...] FARZANA CAST DO on 03/03/2023 06:56 AM [facility]Kofmomkj86-61-4895 Infectious disease Progress note Date of Service [...] and back pain. She then presented to [facility]. Patient was placed on meropenem. Patient urine [...] by CAMERON RICKS on 02/28/2023 10:42 AM [facility]Uqvvxkfy33-49-6475 Urology Consult note Date of Service February [...] tube. The patient is not known to [facility]. She reports that she gets her [...] and also the local urologist here in [place]. Depending on These discussions, this may warrant referral to [facility] vs local treatment. -- Tricia Diop MD Urology [facility] Problem List/Past Medical History Ongoing Acute kidney [...] Tinnitus Procedure/Surgical History Nephrostomy with tube drainage: 03/10/21 JJ stent: 11/15/20 Radiation: 06/2020 Cervical biopsy: [...] unknown unit (06/16/01) Digitally Signed by TRICIA DIOP MD on 02/28/2023 12:08 PM [facility]burgMrvhsicd47-60-6152 Infectious disease Progress note Date of Service [...] and back pain. She then presented to [facility]. Patient was placed on meropenem. Patient urine [...] by CAMERON RICKS on 02/28/2023 10:42 AM [facility]Kwwlkmxj94-96-2758 Infectious disease Progress note Date of Service [...] and back pain. She then presented to [facility]. Patient was placed on meropenem. Patient urine [...] - Continue IV Ertapenem. Will discuss with COMMERCIAL INSULATOR regarding possible IR aspiration. Left nephrostomy tube in place, last exchanged 02/17/23. Recommend urology consult. All other management per primary team Shared/split visit with my collaborating physician Dr. Margoth Martin This dictation was performed using voice recognition software and may include grammatical and/or spelling errors. Digitally Signed by CAMERON RICKS APRN-KANDY on 02/27/2023 02:49 PM Digitally Signed by CAMERON RICKS on 02/27/2023 02:57 PM [facility]Clsbgnsd68-37-2978 Infectious disease Progress note Date of Service [...] and back pain. She then presented to [facility]. Patient was placed on meropenem. Patient urine [...] - Continue IV Ertapenem. Will discuss with COMMERCIAL INSULATOR regarding possible IR aspiration. Left nephrostomy tube in place, last exchanged 02/17/23. Recommend urology consult. All other management per primary team Shared/split visit with my collaborating physician Dr. Margoth Martin This dictation was performed using voice recognition software and may include grammatical and/or spelling errors. Digitally Signed by CAMERON RICKS on 02/27/2023 02:49 PM Digitally Signed by CAMERON RICKS on 02/27/2023 02:57 PM [facility]Bxhuyvyb54-52-7362 Note ORIGINAL EXAMINATION: CT OF THE ABDOMEN [...] Sign Date: 02/27/2023 4:48:38 AM Ordering Provider: [facility]04-26-2023 Note ORIGINAL EXAMINATION: CT OF THE ABDOMEN [...] Sign Date: 02/27/2023 4:48:38 AM Ordering Provider: [facility]04-26-2023 Infectious disease Consult note Date of Service [...] days prior to arrival. Patient called Dr. Maritn's office and was placed on Bactrim. Patient completed prescribed course. Patient continued to have abdominal and back pain. She then presented to [facility]. Patient was placed on meropenem. Patient urine [...] by CAMERON RICKS on 02/26/2023 03:51 PM [facility]97 Palliative care Progress note Code Status Code [...] to make her own medical decisions, per [place] law medical decision making would fall to [...] by NUBIA POWERS on 02/26/2023 01:02 PM [facility]Bsyxomxn91-54-1617 Infectious disease Consult note Date of Service [...] and back pain. She then presented to [facility]. Patient was placed on meropenem. Patient urine [...] by CAMERON RICKS on 02/26/2023 03:51 PM [facility]Kuuxwujr05-84-4137 Palliative care Progress note Date of Service [...] symptoms. Continues with unchanged pain of bilateral flank left greater than right. Pain is characterized as stabbing and squeezing sensation of her kidneys.Patient verbalizes Dilaudid is effective, however only last [...] to make her own medical decisions, per [place] law medical decision making would fall to [...] that she sees a counselor weekly at [facility] counseling services in [place]. Patient's counselor is Lenora. Review of labs, historical records, progress notes, and diagnostics Digitally Signed by NUBIA POWERS on 02/25/2023 03:33 PM [facility]Cbpbxdsm18-10-4961 Note System generated consult secondary to documentation of established left nephrostomy tube. Insertionsite has a dry and intact gauze with transparent dressing. Nephrostomy drainable pouch intact, no issues. Digitally Signed by JAMAL Bach February on 02/25/2023 12:38 PM [facility]Taisomzk36-18-0417 Palliative care Consult note Date of Service [...] to make her own medical decisions, per [place] law medical decision making would fall to [...] by NUBIA POWERS on 02/24/2023 02:58 PM [facility]Wpdnqeas02-29-0384 History and physical note Date of Service 02/23/2023 Chief Complaint Pt c/o abdominal and back pain for the past two weeks, rates pain 9/10. History of Present Illness 32 yo Woman with history of Stage IIIB cervical cancer s/p chemoradiation currently in remission, presents to [facility] emergency room for concern for UTI and [...] Zofran. Blood culture and urine culture sent. 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 Menarche age 14. Amenorrheic since initiation of Chemoradiation. Denies mammogram ever. Colonoscopy in 2019. Denies history of STDs. Not sexually active. Family History Mother with breast cancer Sister with cervical cancer Grandmother with cervical cancer Aunts with cervical cancer Cousins with cervical cancer ONCOLOGY HISTORY: - 04/04/2020: CT scan abdomen and pelvis. [facility]. Thickened cervical wall with involvementof the [...] underwent for intracavitary brachii therapy applications with yapv-gpwz-gkzs iridium 192afterloading device utilizing a tandem and [...] Start Date End Date Elapsed Days IMRT COMMERCIAL INSULATOR Pelvis 6X 180 4,500 04/26/2020 06/02/2020 37 3D PM Bst 18X 180 540 06/05/2020 06/07/2020 2 GENETIC TESTING: - [facility] No reportable somatic or germline pathogenic or [...] JODI HILLIARD MD on 02/24/2023 07:51 AM [facility]Ljayfzvy17-15-4877 Evaluation + Plan noteExtracted from: Title:COMMERCIAL INSULATOR/ONC History and Physical Author:ENZO JONES DO Date:02/23/23 [...] Date:03/19/2023 03:10:00 PM Scheduled Provider:FLIP MARTIN MD Location:COMMERCIAL INSULATOR ONC Appointment Type:SO OV Follow Up Appointment [...] IR Neph Cath-Neph Ureter W/Guide Left 06/02/23 [facility] 04-17-2023 Hospital Discharge instructions Patient Education 02/17/2023 10:41:47 Radiology- Nephrostomy/Nephroureteral Tube Exchange 12/26/2022(CUSTOM) [facility] Nephrostomy/Nephroureteral Tube Exchange Discharge Instructions Interventional Radiology [facility] [address] [place] [address] The procedure that you had done today [...] the feeling of the need to urinate. Ikrc-hdk-aizozxj pain medication should be used for pain [...] the gauze. Supplies may be obtained at: [facility] [address] [facility] [address] [facility] Any questions or concerns, please contact your physician or Interventional Radiology at [phone] from 8-4:30pm Friday-Friday. If you do not [...] until you are awake and alert. Take uhww-zig-bphpyfk and prescription medicines only as told by [...] 08/10/2014 Document Revised: 10/02/2018 Document Reviewed: 02/08/2017 [employer] Patient Education 2020 [employer]. Follow Up Care 12/16/2022 14:31:35 With:LULIOR LuRA LABOR CREW SUPERVISOR-SWING FRAME GRINDER OPERATOR Address: [address] [place] [address] [place] [address] [phone] When: Unknown With:Go to emergency room if symptoms worsen Address:Unknown When: Unknown [facility] 04-17-2023 Note* JAMAL Feliciano Ventura: SIGN, AUTHOR, PERFORM Event Display: IR Procedure Record Authored Date: IR Procedure Record Summary Primary Physician: VIRAL MANUEL MD Finalized Date/Time: 02/17/23 10:12:03 Pt. Name: ANTONELLALALYO.B./Sex: 1990 Female Med Rec #: [id number] Physician: Financial #: [id number] Pt. Type: O Room/Bed: / Admit/Disch: 02/17/23 [...] MANUEL MD, Jacque M. Hershberger, Terra L Jet Engine Mechanic Role Performed Primary Surgeon Scrub Technologist Circulating [...] mL/beat Medication OMNIPAQUE 300 50ML 10/PK Y-530 [facility] [id number] Radiology Flouroscopy Fluoroscopy Used? Yes Fluoro Dose [...] than Primary Last Modified By: Patti Ching Jet Engine Mechanic 02/17/23 09:58:41 Immediate Post Procedure Note - [...] images and Patti Ching results are properly Jet Engine Mechanic, JAMAL Feliciano labeled and Ventura appropriately displayed, [...] Radiology - Action Plan Outcomes Met? Yes Sheet Metal Duct Installer Apprentice JAMAL Feliciano Completing Procedure Plan Last Modified By: JAMAL Feliciano 02/17/23 09:46:55 Case Comments <None> Finalized By: JAMAL Feliciano Document Signatures Signed By: JAMAL Feliciano 02/17/23 10:12 [facility] 04-17-2023 Summary of episode note Discharge Instructions Thank you for allowing [facility] to assist you with your healthcare needs. The following is importantdischarge information regarding your hospital visit. Your Care Team FLIP MARTIN MD What to do next Scheduled Follow-Up Appointments Appointment Type When With Where Contact InformationSO OV 02/20/2023 02:50 PM EDT FLIP MARTIN MD [facility] [address] [place] [phone] Follow Up Appointments Follow Up with BRITTNI LU APRN-SWING FRAME GRINDER OPERATOR When Where: [address] [place] [address] [place] [address] [phone] Follow Up with Go to emergency room [...] medication providers or retail pharmacies. Education Materials [facility] Nephrostomy/Nephroureteral Tube Exchange Discharge Instructions Interventional Radiology [facility] [address] [place] [address] The procedure that you had done today [...] the feeling of the need to urinate. Dtge-clm-mlusktw pain medication should be used for pain [...] the gauze. Supplies may be obtained at: [facility] [address] [facility] [address] [facility] Any questions or concerns, please contact your physician or Interventional Radiology at [phone] from 8-4:30pm Friday-Friday. If you do not [...] until you are awake and alert. Take qzki-zkq-pvhnodh and prescription medicines only as told by [...] 08/10/2014 Document Revised: 10/02/2018 Document Reviewed: 02/08/2017 [employer] Patient Education 2020 [employer]ule. Additional Information VACCINATE! IT SAVES LIVES! Members of the community who have not yet received the COVID-19 vaccine and would like to receive it can visit one of [facility] vaccine clinics. There are many vaccine clinic locations within the [facility]. For locations and available times, please visit [email or web address] It is important to note that some COVID mobile vaccine clinics are held outdoors and may be canceled in rainy or stormy conditions. To learn more about pediatric vaccinations (ages 5-11), we invite you to visit the [facility] webpage. https://www.[facility].org/pages/2800-Bxedk-Fmobpexffzm-Czmtjaxeip-Itxny-Fhb stions.htmlTo learn more about the COVID-19 vaccine, we invite you to visit the CDC website for a list of frequently asked questions. https://www.cdc.gov/coronavirus/2019-ncov/vaccines/faq.html [employer] Patient Portal Access Instructions: Stay connected with your healthcare team and access your personal medical information anytime with the [employer] Patient Portal.If you would like a full copy of your medical records, please contact the [facility] Records Department, Friday through Friday between 8a.m. and 4:30p.m. Please follow the directions below to access the portal: 1.Access the email account you provided upon registration to the hospital.2.Look for an invitation email from [facility].3.Open the email and access the invitation link: Accept Invitation to [employer]4.Fill in the required quintero to create your account. Sign into [email or web address] 2 Go with your username and password that you [...] you will allow to register on the [facility] Patient Portal for access to your information. You can also access the [employer] Patient Portal on the [employer] joya. Simply click on Health Records under HealthData and then click on the [employer] logo. [...] Call your local pharmacy or go to http://bit.ly/1I5Vt4o to find one close to you.3.Make use of household items: Use cat litter or old coffee grounds to dispose medications if other options arenot available. Mix your drugs with these household products, seal them in an airtight container andthrow it into the garbage. Call [facility]: [phone] to be sure your drugs can be [...] aware that I should contact my doctor. 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 Post Procedure Diagnosis: Same. Enrolled Nurse: Dr. Viral Manuel Procedure: Left nephroureteral catheter exchange. Anesthesia: Procedural sedation. Findings: Success. Estimated Blood Loss: Minimal (Less Than 10 mL). Specimen: None. Complications: None. Full report with procedural details to follow and will become available under the Radiology tab of Results Review. Please contact for any questions or concerns. Viral Manuel MD Interventional Radiology Pager: [phone] Digitally Signed by VIRAL MANUEL MD on 02/17/2023 10:22 AM [facility]Andkyzoe47-90-8662 Note IR Procedure Record Summary Primary Physician: VIRAL MANUEL MD Finalized Date/Time: 02/17/23 10:12:03 Pt. Name: ANTONELLA LALY L /Sex: 1990 Female Med Rec #: [id number] Physician: Financial #: [id number] Pt. Type: O Room/Bed: / Admit/Disch: 02/17/23 [...] MANUEL MD, Jacque M. Hershberger, Terra L Jet Engine Mechanic Role Performed Primary Surgeon Scrub Technologist Circulating [...] mL/beat Medication OMNIPAQUE 300 50ML 10/PK Y-530 [facility] [id number] Radiology Flouroscopy Fluoroscopy Used? Yes Fluoro Dose [...] than Primary Last Modified By: Patti Ching Jet Engine Mechanic 02/17/23 09:58:41 Immediate Post Procedure Note - [...] images and Patti Ching results are properly Jet Engine MechanicBraden RN labeled and Ventura appropriately displayed, Alcohol [...] Radiology - Action Plan Outcomes Met? Yes Sheet Metal Duct Installer Apprentice JAMAL Feliciano Completing Procedure Plan Last Modified By: JAMAL Feliciano 02/17/23 09:46:55 Case Comments Finalized By: JAMAL Feliciano Document Signatures Signed By: JAMAL Feliciano 02/17/23 10:12 [facility]vwkabuc47-12-1253 Hospital Discharge instructions Patient Education 01/06/2023 15:48:10 Urinary Tract Infection, Adult, Obhh-ef-Xtcf Urinary Tract Infection, Adult A urinary tract [...] Follow these instructions at home: Medicines Take wfen-nie-zwxjatj and prescription medicines only as told by [...] 04/07/2009 Document Revised: 10/07/2019 Document Reviewed: 04/29/2019 [employer] Patient Education 2020 [employer]ule. Follow Up Care 01/01/2023 16:30:26 With:FLIP MARTIN MD Address: [address] [place] [address] [place] [address]- When:01/30/2023 14:10:00 [facility] 03-06-2023 Note Discharge Instructions Thank you for allowing [facility] to assist you with your healthcare needs. [...] IR Follow Up Appointments Follow Up with FLPI MARTIN MD When Within 1-2 days Why: Please call the office to schedule a follow up appointment Where: [address] [place] [address] [place] [address]- The Following Activity and Diet Have Been [...] 12 hours Duration: 4 Days Pickup at [facility] New mirtazapine (mirtazapine 15 mg oral tablet) 1 tab(s) by mouth Once a day Refills: 3 Pickup at [facility] Pharmacy Information [facility]: [address], [place] [phone] What How Much When Why Comments Stop [...] Follow these instructions at home: Medicines Take qjcb-cpj-wmhemjm and prescription medicines only as told by [...] 04/07/2009 Document Revised: 10/07/2019 Document Reviewed: 04/29/2019 [employer] Patient Education 2020 [employer]. Additional Information VACCINATE! IT SAVES LIVES! Members of the community who have not yet received the COVID-19 vaccine and would like to receive it can visit one of [facility] vaccine clinics. There are many vaccine clinic locations within the [facility]. For locations and available times, please visit [email or web address]/. It is important to note that some COVID mobile vaccine clinics are held outdoors and may be canceled in rainy or stormy conditions. To learn more about pediatric vaccinations (ages 5-11), we invite you to visit the [facility] webpage. https://www.[facility].org/pages/8368-Wsdmw-Hhhucyvfldy-Xvswstxtqc-Whfme-Qnf stions.htmlTo learn more about the COVID-19 vaccine, we invite you to visit the CDC website for a list of frequently asked questions. https://www.cdc.gov/coronavirus/2019-ncov/vaccines/faq.html [facility] Patient Portal Access Instructions: Stay connected with your healthcare team and access your personal medical information anytime with the [employer] Patient Portal.If you would like a full copy of your medical records, please contact the [facility] Records Department, Friday through Friday between 8a.m. and 4:30p.m. Please follow the directions below to access the portal: 1.Access the email account you provided upon registration to the [facility].2.Look for an invitation email from [facility].3.Open the email and access the invitation link: Accept Invitation to [employer]4.Fill in the required quintero to create your account. Sign into www.[employer] with your username and password that you [...] you will allow to register on the [facility] Patient Portal for access to your information. You can also access the [employer] Patient Portal on the [employer] joya. Simply click on Health Records under [employer] Of [employer] and then click on the B[employer] logo. HOW TO SAFELY DISPOSE OF PRESCRIPTION [...] Call your local pharmacy or go to http://bit.LeadGenius/1P9Jz4z to find one close to you.3.Make use of household items: Use cat litter or old coffee grounds to dispose medications if other options arenot available. Mix your drugs with these household products, seal them in an airtight container andthrow it into the garbage. Call [facility]: [phone] to be sure your drugs can be [...] Patient Education Materials Urinary Tract Infection, Adult, Lpns-tz-Oisr Medication Leaflets My discharge plan and instructions have been reviewed and explained to me and I,LALY NAVAS understand my current condition and have read and understand these discharge instructions. I have received a written copy of the plan/instructions. If I have questions, I am aware that I should contact my doctor. Patient/[employer] Signature: Date/Time: Relationship to Patient: Witness Name/Signature: Date/Time: [facility]geybpbm16-45-6420 Discharge summary Date of Service 01/06/2023 Discharge [...] Code Status - Ordered -- 01/01/23 17:37:00 SUMEET DNRCC-Arrest Intubate & Mechanical Vent, Constant Order [...] a follow up appointment Where: [address] [place] [address] [place] [address]- Follow Up Appointments 2 week follow up [...] PM Digitally Signed by FLIP MARTIN MD [facility]Cshkemxh29-53-1769 Note Date of Service 01/06/2023 Chief Complaint [...] Result Date: January 02, 2023 Verified By: IVRAL MANUEL MD CLINICAL STATEMENT: IMPRESSION: Successful left [...] AM Digitally Signed by FLIP MARTIN MD [facility]Hqphyuhz94-65-3468 Note Date of Service 01/05/2023 Chief Complaint [...] 0.6 Eosinophil, Absolute 0.4 Basophil, Absolute 0.1 / 0514 Creatinine Lvl (s) 0.81 Albumin Level [...] ENZO JONES DO on 01/05/2023 08:50 AM [facility]Onygpocn03-90-3695 Note Date of Service 01/05/2023 Chief Complaint [...] ENZO JONES DO on 01/05/2023 08:50 AM [facility]Mxasinae32-15-2001 Note Date of Service 01/05/2023 Chief Complaint [...] ENZO JONES DO on 01/05/2023 08:50 AM [facility]Lpdfakrw05-12-2908 Note Date of Service 01/05/2023 Chief Complaint [...] ENZO JONES DO on 01/05/2023 08:50 AM [facility]burgVelbowvl17-82-2390 Note Date of Service 01/04/23 Chief Complaint [...] entire meals. She states that the Dilaudid TERRITORY SUPERVISOR helpswith her pain. She is denying any [...] mL, IV Push, q4h Continuous: (2) HYDROmorphone TERRITORY SUPERVISOR in 50mL NS 10 mg 10 mg [...] 4.2 BUN: 9.0 Creatinine Lvl (s): 0.81 03/03 05:53 WBC: 7.0 Hgb: 11.3 L Hct: [...] function stable - IVF NS 75cc/hr - 3 Urogram: No evidence of right urinary tract obstruction. Pelvic pain - Likely due to history of chemoradiation therapy - Dilaudid TERRITORY SUPERVISOR started overnight History of cervical cancer - [...] resolving with remeron Disposition: IV antibiotics. dilaudid TERRITORY SUPERVISOR for pain control Digitally Signed by NIECY THAPA DO on 01/04/2023 07:25 AM [facility]Wpmypile97-75-7319 Note Date of Service 01/04/23 Chief Complaint [...] entire meals. She states that the Dilaudid TERRITORY SUPERVISOR helpswith her pain. She is denying any [...] mL, IV Push, q4h Continuous: (2) HYDROmorphone TERRITORY SUPERVISOR in 50mL NS 10 mg 10 mg [...] to history of chemoradiation therapy - Dilaudid TERRITORY SUPERVISOR started overnight History of cervical cancer - [...] resolving with remeron Disposition: IV antibiotics. dilaudid TERRITORY SUPERVISOR for pain control Digitally Signed by NIECY THAPA DO on 01/04/2023 07:25 AM [facility]Nytupjwx94-98-5608 Note Date of Service 01/04/23 Chief Complaint [...] entire meals. She states that the Dilaudid TERRITORY SUPERVISOR helpswith her pain. She is denying any [...] mL, IV Push, q4h Continuous: (2) HYDROmorphone TERRITORY SUPERVISOR in 50mL NS 10 mg 10 mg [...] to history of chemoradiation therapy - Dilaudid TERRITORY SUPERVISOR started overnight History of cervical cancer - [...] resolving with remeron Disposition: IV antibiotics. dilaudid TERRITORY SUPERVISOR for pain control Digitally Signed by NIECY THAPA DO on 01/04/2023 07:25 AM [facility]burgOtjdzmlr17-05-7290 Note Date of Service 01/03/2023 Chief Complaint [...] ALANNA SCANLON DO on 01/03/2023 07:57 AM [facility]burgYrgcqzmm45-79-5581 Consult note Chief complaint history of anxiety [...] CLOTILDE SHAY MD on 01/03/2023 11:53 AM [facility]Sbiopshp84-99-6313 Note Date of Service 01/03/2023 Chief Complaint [...] ALANNA SCANLON DO on 01/03/2023 07:57 AM [facility]Xmscfrao27-34-6987 Note IR Procedure Record Summary Primary Physician: VIRAL MANUEL MD Finalized Date/Time: 01/03/23 09:23:36 Pt. Name: ANTONELLALALY /Sex: 1990 Female Med Rec #: [id number] Physician: FLIP MARTIN MD Financial #: [id number] Pt. Type: I Room/Bed: [facility]/A Admit/Disch: 01/01/23 16:28:38 - Institution: Allergies identified in patient's electronic medical record at time of printing on 01/03/23 Entry 1 Entry 2 Substance Oranges penicillin Reaction Type Allergy Allergy Last Modified By: JAMAL Scott RN Evan 02/03/21 10/04/22 08:25:47 17:13:24 Case Attendance- IR Entry 1 Entry 2 Entry 3 Case Attendee VIRAL MANUEL MD, [facility] Devika Lindsey, RN Gail Phillips Role Performed Primary Surgeon Scrub Technologist Procedure [...] 09:19:37 Entry 4 Case Attendee Patti Ching Role Performed Circulating Technologist Details Time In [...] cervical cancer Last Modified By: Patti Ching 01/02/23 15:28:59 Medication Administration- IR Entry 1 [...] Time 01/02/23 15:44:00 Last Modified By: Ana Tipton 01/03/23 09:19:46 Immediate Post Procedure Note - [...] Patient With Last Modified By: Patti Ching Jet Engine Mechanic 01/02/23 15:25:06 Radiology Protocols/Time Out- IR Entry [...] Out Sam Junior Relevant images and A, JAMAL Lindsey results are properly E, Patti Ching labeled and Jet Engine Mechanic appropriately displayed, Alcohol based prep dry Instrument Sterility Team Members Sam Junior Verifying Sterility Procedure IR Neph Cath-Neph Ureter W/Guide Left SN Last Modified By: JAMAL Lindsey 01/02/23 15:42:25 Skin Prep- IR Entry 1 Procedure IR Neph Cath-Neph Ureter W/Guide Left SN Skin Prep Prep Area Flank Side Left By Sam Junior Prep Agents Chloraprep Hair Removal Method N/A Last Modified By: Patti Ching Jet Engine Mechanic 01/02/23 15:28:03 Patient Positioning- IR Entry 1 Procedure IR Neph Cath-Neph Body Position OP Prone Ureter W/Guide Left SN Feet Uncrossed? Yes Pressure Points Yes Checked Last Modified By: Patti Ching Jet Engine Mechanic 01/02/23 15:28:11 Radiology Procedure Plan - IR [...] Radiology - Action Plan Outcomes Met? Yes Sheet Metal Duct Installer Apprentice JAMAL Lindsey Completing Procedure Plan Last Modified By: Patti Ching Jet Engine Mechanic 01/02/23 15:28:48 Case Comments Had to remove Doc, RN, Techs and patient from room using procedure stop time. Then Edit rad procedure details Fluoro MGY and Total time which I got from IR Equipment/Techs notes so that the document would be complete then finalized it so charges could drop and report could flow [facility]. Sintia RT- R(CV) Cut Off Man 01-03-2023 Finalized By: Ana Tipton Document Signatures Signed By: Ana Tipton 01/03/23 09:23 [facility]Igwarege00-94-1995 Note Date of Service 01/03/2023 Chief Complaint [...] ALANNA SCANLON DO on 01/03/2023 07:57 AM [facility]Uzxrkdpg15-29-0558 Note ORIGINAL PROCEDURE: Nephrostogram with left percutaneous [...] in the usual sterile fashion. A fluoroscopic byproducts supervisor image was obtained demonstrating the expected position [...] Sign Date: 01/03/2023 12:42:41 AM Ordering Provider: [facility]03-02-2023 Note Date of Service 01/02/2023 Chief Complaint [...] ALANNA SCANLON DO on 01/02/2023 07:57 AM [facility]Cuwesrfb22-52-2608 Note ORIGINAL PROCEDURE: Nephrostogram with left percutaneous [...] in the usual sterile fashion. A fluoroscopic byproducts supervisor image was obtained demonstrating the expected position [...] Date: 01/03/2023 12:42:41 AM Ordering Provider: ALANNA [facility]03-02-2023 Note System generated consult secondary to documented left nephrostomy tube. System intact with Band-Aidover insertion site. Patient states plan is for an exchange today. No needs at this time. Digitally Signed by JAMAL Bach February01/02/2023 11:29 AM [id number] Note Date of Service 01/02/2023 Chief Complaint [...] ALANNA SCANLON DO on 01/02/2023 07:57 AM [facility]smpixon14-90-1449 History and physical note Date of Service [...] chest pain, dizziness, vaginal bleeding, vaginal discharge. 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 Menarche age 14. Amenorrheic since initiation of Chemoradiation. Denies mammogram ever. Colonoscopy in 2019. Denies history of STDs. Not sexually active. Family History Mother with breast cancer Sister with cervical cancer Grandmother with cervical cancer Aunts with cervical cancer Cousins with cervical cancer ONCOLOGY HISTORY: - 04/04/2020: CT scan abdomen and pelvis. [facility]. Thickened cervical wall with involvementof the [...] underwent for intracavitary brachii therapy applications with qpyv-nluh-sbms iridium 192afterloading device utilizing a tandem and [...] Start Date End Date Elapsed Days IMRT COMMERCIAL INSULATOR Pelvis 6X 180 4,500 04/26/2020 06/02/2020 37 3D PM Bst 18X 180 540 06/05/2020 06/07/2020 2 GENETIC TESTING: - [facility] No reportable somatic or germline pathogenic or [...] 3.8 G/dL (01/01/23 13:18:00) Globulin: 3.1 G/dL (01/01/23:18:00) A/G Ratio: 1.2 ratio (01/01/23:18:00) Bili Total: 0.2 mg/dL (01/01/23:18:) Bili Direct: <0.1 (01/01/23:18:) Bili Indirect: Unable to Calculate (01/01/23:18:00) Alk Phos: 82 U/L (01/01/23:18:00) AST/SGOT: 14 U/L (01/01/23:18:00) ALT/SGPT: <8 Low (01/01/23:18:00) Iron: 35 mcg/dL Low (01/01/23:18:) TIBC: 288 mcg/dL (01/01/23:18:00) Iron Sat: 12 % (01/01/23:18:) GFR Non-: >60 (01/01/23:18:00) GFR : >60 (01/01/23:18:) Ferritin: 48 ng/mL (01/01/23:18:00) Folate: 9.92 ng/mL (01/01/23:18:00) Vit. D 25-Hydroxy: 18.6 ng/mL (01/01/23:18:00) Vitamin B12 Lvl: 301 pg/mL (01/01/23:18:00) U Creatinine: 194.8 mg/dL (01/01/23:18:00) U Protein: 450.4 mg/dL (01/01/23:18:00) U Ratio Prot/Creat: 2.3 ratio (01/01/23:18:00) Assessment/Plan Patient is a 32 yo woman [...] ALANNA SCANLON DO on 01/01/2023 06:18 PM [facility]dzt[facility]wn98-74-0731 Note Date of Service 01/02/2023 Chief Complaint [...] ALANNA SCANLON DO on 01/02/2023 07:57 AM [facility]zjpovg48-14-5750 Note ORIGINAL EXAMINATION: CT UROGRAM 01/01/2023 6:17 [...] 01/02/2023 12:04:48 AM Ordering Provider: ALANNA SCANLON [facility]neq[facility]fw[facility]2020 Note ORIGINAL EXAMINATION: CT UROGRAM 01/01/2023 6:17 [...] Sign Date: 01/02/2023 12:04:48 AM Ordering Provider: [facility]03-01-2023 History and physical note Date of Service [...] chest pain, dizziness, vaginal bleeding, vaginal discharge. 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 Menarche age 14. Amenorrheic since initiation of Chemoradiation. Denies mammogram ever. Colonoscopy in 2020. Denies history of STDs. Not sexually active. Family History Mother with breast cancer Sister with cervical cancer Grandmother with cervical cancer Aunts with cervical cancer Cousins with cervical cancer ONCOLOGY HISTORY: - 04/04/2020: CT scan abdomen and pelvis. [facility]. Thickened cervical wall with involvementof the [...] underwent for intracavitary brachii therapy applications with lynx-fgkt-rokx iridium 192afterloading device utilizing a tandem and [...] Start Date End Date Elapsed Days IMRT COMMERCIAL INSULATOR Pelvis 6X 180 4,500 04/26/2020 06/02/2020 37 3D PM Bst 18X 180 540 06/05/2020 06/07/2020 2 GENETIC TESTING: - Patient had genetic testing sent through [facility]. No reportable somatic or germline pathogenic or [...] (01/01/23 13:18:00) Electrolyte Balance: 2 mEq/L Low (01/01/23:18:) BUN: 11 mg/dL (01/01/23 13:18:00) Creatinine Lvl (s): 0.85 mg/dL (01/01/23 13:18:00) BUN/Creatinine Ratio: 12.9 ratio (01/01/23:18:00) Calcium Lvl: 9.9 mg/dL (01/01/23:18:00) Magnesium Lvl: 1.9 mg/dL (01/01/23:18:00) Phosphorus: 3.1 mg/dL (01/01/23:18:00) Total Protein: 6.9 G/dL (01/01/23:18:00) Albumin Level: 3.8 G/dL (01/01/23:18:00) Globulin: 3.1 G/dL (01/01/23:18:) A/G Ratio: 1.2 ratio (01/01/23:18:) Bili Total: 0.2 mg/dL (01/01/23:18:00) Bili Direct: <0.1 (01/01/23:18:) Bili Indirect: Unable to Calculate (01/01/23:18:00) Alk Phos: 82 U/L (01/01/23 13:18:00) AST/SGOT: 14 U/L (01/01/23:18:00) ALT/SGPT: <8 Low (01/01/23:18:00) Iron: 35 mcg/dL Low (01/01/23:18:00) TIBC: 288 mcg/dL (01/01/23:18:00) Iron Sat: 12 % (01/01/23:18:00) GFR Non-: >60 (01/01/23:18:00) GFR : >60 (01/01/23:18:00) Ferritin: 48 ng/mL (01/01/23:18:00) Folate: 9.92 ng/mL (03/01/23 13:18:00) Vit. D 25-Hydroxy: 18.6 ng/mL (01/01/23 [...] ALANNA SCANLON DO on 01/01/2023 06:18 PM [facility]phmkwt10-36-4991 Summary of episode note ANTONELLA, LALY Boyce :1990 Visit Date:01/01/2023 Your Visit Summary Your Diagnosis Malignant neoplasm of cervix uteri, unspecified, Cervical cancer Tests Performed .Auto Differential .Estimated Glomerular Filtration Rate .Neutro Absolute B12 Basic Metabolic Panel Complete Blood Count Ferritin Folate Level Hepatic Function Panel ([facility]) Iron Studies Magnesium Level Phosphorus [...] Folate - 9.92 ng/mL Hepatic Function Panel ([facility]) (01/01/2023) Total Protein - 6.9 G/dL Albumin [...] to receive it can visit one of [facility] vaccine clinics. There are many vaccine clinic locations within the [facility]. For locations and available times, please visit www.[email or web address].gov/. It is important to note that some COVID mobile vaccine clinics are held outdoors and may be canceled in rainy or stormy conditions. To learn more about pediatric vaccinations (ages 5-11), we invite you to visit the [facility] webpage. https://www.[facility].org/pages/6011-Rkxba-Dadbggnqwkj-Ucmzvrqmln-Extza-Snl stions.htmlTo learn more about the COVID-19 vaccine, we invite you to visit the CDC website for a list of frequently asked questions. https://www.cdc.gov/coronavirus/2019-ncov/vaccines/faq.html [employer] Patient Portal Access Instructions: Stay connected with your healthcare team and access your personal medical information anytime with the [employer] Patient Portal.If you would like a full copy of your medical records, please contact the [facility] Records Department, Friday through Friday between 8a.m. and 4:30p.m. Please follow the directions below to access the portal: 1.Access the email account you provided upon registration to the hospital.2.Look for an invitation email from [facility].3.Open the email and access the invitation link: Accept Invitation to [employer] [facility]4.Fill in the required quintero to create your account. Sign into www.[employer] with your username and password that you [...] you will allow to register on the [employer] Patient Portal for access to your information. You can also access the [employer] Patient Portal on the [employer]. Simply click on Health Records under [employer] and then click on the [employer] logo. HOW TO SAFELY DISPOSE OF PRESCRIPTION [...] Call your local pharmacy or go to [email or web address] to find one close to you.3.Make use of household items: Use cat litter or old coffee grounds to dispose medications if other options arenot available. Mix your drugs with these household products, seal them in an airtight container andthrow it into the garbage. Call [facility]: [phone] to be sure your drugs can be [...] aware that I should contact my doctor. Patient/[employer] Signature: Date/Time: Relationship to Patient: Witness Name/Signature: Date/Time: [facility]eprqyyb14-41-7829 Evaluation + Plan noteExtracted from: Title:History and [...] Date:01/30/2023 02:10:00 PM Scheduled Provider:FLIP MARTIN MD Location:[facility]ERCIAL [facility]ULATOR ONC Appointment Type:SO OV Follow Up Appointment [...] IR Neph Cath-Neph Ureter W/Guide Left 02/17/23 [facility] 01-13-2023 Note ORIGINAL PROCEDURE: INTRODUCTION-NEPHRO TUBE MODERATE CONSCIOUS SEDATION 11/15/2022 HISTORY: ORDERING SYSTEM PROVIDED HISTORY: Reason for Exam: CERVICAL CA, LAST CHANGE 10/02/22 TECHNIQUE: Fluoroscopy CONTRAST: 8 cc Omnipaque 300 SEDATION: Moderate sedation was ordered and supervised by the attending with physician tvbl-mb-lwth monitoring. Medications were provided and recorded by Radiology nurses. FLUOROSCOPY DOSE AND TYPE OR TIME AND EXPOSURES: Fluoroscopy: Time: 23.8 minutes. Air kerma: 92.0 mGy Number of images: 15 DESCRIPTION OF PROCEDURE: Informed consent was obtained after a detailed explanation of the procedure including risks, benefits, and alternatives. [place] protocol was observed. Sterile gowns, masks, hats [...] to the urinary bladder. 9 and 10 Chadian vascular sheath were guided over the catheter [...] was then readily removed. A new 8 Chadian 24 cm nephroureteral stent was guided into [...] balloon. 3. Placement of a new 8 Chadian 24 cm nephroureteral stent in the left renal collecting system Interpreted by: Janet Florez Preliminary Report By: Janet Florez Electronically signed By Janet Florez Dictated Date: 11/15/2022 4:52:51 PM Prelim Date: 11/15/2022 5:22:54 PM Sign Date: 11/15/2022 5:22:54 PM Ordering Provider: BRITTNI LU [facility]htayhp96-46-8744 Hospital Discharge instructions Patient Education 11/15/2022 13:39:47 Radiology- Nephrostomy Tube Insertion (CUSTOM) [place] Nephrostomy Tube Exchange Discharge Instructions Interventional Radiology [facility] [address] [place] [address] The procedure that you had done today [...] mayexperience the feeling of needing to urinate. Xces-jnu-sbdvajb pain medication should be used for pain [...] instruction below: 8:00 am- 5:00 pm call [phone] After 5:00 pm call [phone] After 24 hours, contact the physician who [...] until you are awake and alert. Take bwgd-zus-icokwwq and prescription medicines only as told by [...] 08/10/2014 Document Revised: 10/02/2018 Document Reviewed: 02/08/2017 [employer] Patient Education 2020 [employer]ule. Follow Up Care 11/12/2022 14:00:32 With:BRITTNI LU Address: [address] [place] [address] [place] [phone] When: Unknown Comments:Follow-up as scheduled With:Call Physician Referral Address:Unknown When: Unknown [facility] 01-13-2023 Evaluation + Plan noteExtracted from: Title:IR [...] Ready to change: Yes. Physical Exam Vitals: Fymhdwhhsom71.8 (09:52) Systolic Blood PressureNo result Diastolic Blood PressureNo result Pulse69 (09:52) GwY761 (09:52) Respiratory Rate14 (09:52) General: Alert, cooperative. [...] Date:11/20/2022 09:00:00 AM Scheduled Provider:FLIP MARTIN MD Location:[facility] ONC Appointment Type:SO OV Appointment Date:01/01/2023 11:30:00 AM Scheduled Provider:FLIP MARTIN MD Location:[facility] ONC Appointment Type:SO OV Follow Up Diagnostic [...] IR Neph Cath-Neph Ureter W/Guide Left 06/02/23 [facility] 01-13-2023 Summary of episode note Discharge Instructions Thank you for allowing [facility] to assist you with your healthcare needs. The following is importantdischarge information regarding your hospital visit. Your Care Team FLIP MARTIN MD What to do next Scheduled Follow-Up Appointments Appointment Type When With Where Contact InformationSO OV 11/20/2022 09:00 AM EST FLIP MARTIN MD [facility] [address] [place] [phone] SO OV Follow Up 01/01/2023 11:30 AM FLIP CORRALES MD [facility] [address] [place] [address] Follow Up Appointments Follow Up with BRITTNI LU When Why: Follow-up as scheduled Where: [address] [place] [address] [place] [address]- [phone] Follow Up with Call Physician Referral When [...] medication providers or retail pharmacies. Education Materials [place] Nephrostomy Tube Exchange Discharge Instructions Interventional Radiology [facility] [address] The procedure that you had done today [...] mayexperience the feeling of needing to urinate. Vuns-nkm-urgxmpg pain medication should be used for pain [...] instruction below: 8:00 am- 5:00 pm call [phone] After 5:00 pm call [phone] After 24 hours, contact the physician who [...] until you are awake and alert. Take xlvc-jkn-ahqefjl and prescription medicines only as told by [...] 08/10/2014 Document Revised: 10/02/2018 Document Reviewed: 02/08/2017 Elsevier Patient Education 2020 Elsevier Inc. Additional Information VACCINATE! IT SAVES LIVES! Members of the community who have not yet received the COVID-19 vaccine and would like to receive it can visit one of [facility] vaccine clinics. There are many vaccine clinic locations within the [facility]. For locations and available times, please visit [email or web address]/. It is important to note that some COVID mobile vaccine clinics are held outdoors and may be canceled in rainy or stormy conditions. To learn more about pediatric vaccinations (ages 5-11), we invite you to visit the [facility] webpage. https://www.[facility].org/pages/0314-Xvuyk-Mpgcfouvuso-Pmohgehtkd-Qougy-Jfj stions.htmlTo learn more about the COVID-19 vaccine, we invite you to visit the [facility] website for a list of frequently asked questions. [email or web address]/Ubpkdery-[email or web address]-Dgbecsav/nsctp-Wszgfmg-Nmtobezmyy _Asked-Questions.pdf [facility] Patient Portal Access Instructions: Stay connected with your healthcare team and access your personal medical information anytime with the [employer] Patient Portal.If you would like a full copy of your medical records, please contact the [facility] Records Department, Friday through Friday between 8a.m. and 4:30p.m. Please follow the directions below to access the portal: 1.Access the email account you provided upon registration to the [facility].2.Look for an invitation email from [facility].3.Open the email and access the invitation link: Accept Invitation to [employer]4.Fill in the required quintero to create your account. Sign into www.[employer] with your username and password that you [...] you will allow to register on the [employer] Patient Portal for access to your information. You can also access the [employer] Patient Portal on the [employer]a. Simply click on Health Records under [employer] and then click on the [employer] logo. [...] Call your local pharmacy or go to [email or web address] to find one close to you.3.Make use of household items: Use cat litter or old coffee grounds to dispose medications if other options arenot available. Mix your drugs with these household products, seal them in an airtight container andthrow it into the garbage. Call [facility]: [phone] to be sure your drugs can be [...] aware that I should contact my doctor. Patient/[employer] Signature: Date/Time: Relationship to Patient: Witness Name/Signature: Date/Time: [facility]zg[facility]fs[facility]-6083 Note ORIGINAL PROCEDURE: INTRODUCTION-NEPHRO TUBE MODERATE CONSCIOUS SEDATION 11/15/2022 HISTORY: ORDERING SYSTEM PROVIDED HISTORY: Reason for Exam: CERVICAL CA, LAST CHANGE 10/02/22 TECHNIQUE: Fluoroscopy CONTRAST: 8 cc Omnipaque 300 SEDATION: Moderate sedation was ordered and supervised by the attending with physician jsww-mu-oxfz monitoring. Medications were provided and recorded by Radiology nurses. FLUOROSCOPY DOSE AND TYPE OR TIME AND EXPOSURES: Fluoroscopy: Time: 23.8 minutes. Air kerma: 92.0 mGy Number of images: 15 DESCRIPTION OF PROCEDURE: Informed consent was obtained after a detailed explanation of the procedure including risks, benefits, and alternatives. [place] protocol was observed. Sterile gowns, masks, hats [...] to the urinary bladder. 9 and 10 Chadian vascular sheath were guided over the catheter [...] was then readily removed. A new 8 Chadian 24 cm nephroureteral stent was guided into [...] balloon. 3. Placement of a new 8 Chadian 24 cm nephroureteral stent in the left renal collecting system Interpreted by: Janet Florez Preliminary Report By: Janet Florez Electronically signed By Janet Florez Dictated Date: 11/15/2022 4:52:51 PM Prelim Date: 11/15/2022 5:22:54 PM Sign Date: 11/15/2022 5:22:54 PM Ordering Provider: [facility]01-13-2023 Note IR Procedure Record Summary Primary Physician: Finalized Date/Time: 11/15/22 12:56:45 Pt. Name: ANTONELLALALY/Sex: 1990 Female Med Rec #: [id number] Physician: Financial #: [id number] Pt. Type: O Room/Bed: / Admit/Disch: 11/15/22 09:39:00 - Institution: Allergies identified in patient's electronic medical record at time of printing on 11/15/22 Entry 1 Entry 2 Substance Oranges penicillin Reaction Type Allergy Allergy Last Modified By: JAMAL Scott RN Evan 02/03/21 10/04/22 08:25:47 17:13:24 Case Attendance- IR Entry 1 Entry 2 Entry 3 Case Attendee GAUTAM, JANET Lindsey, Padmini Alarcon Jet Engine Mechanic Role Performed Radiologist Procedure Procedure Nurse Scrub [...] Ureter W/Guide Left SN Last Modified By: Kaorlina Prater 11/15/22 12:49:44 Radiology Procedures- IR Entry 1 Procedure/Preference IR Neph Cath-Neph Actual Procedure IR NEPH CATH-NEPH Card Ureter W/Guide Left SN URETER W/ GUIDE LEFT SN Primary Procedure Yes Primary Surgeon GAUTAMJANET MD Anesthesia/Sedation Local, IV Sedation Type Additional [...] 4 X 5, Gauze Technologist Notes 8.5F Douds sponge 4 X 4 Nephroureterostomy stent LT Renal Last Modified By: Karolina Prater 11/15/22 12:52:49 Cultures and Specimens- IR Entry 1 Kind Culture Type Urine Date/Time 11/15/22 11:30:00 Source LT Renal Last Modified By: Sam Junior Devika A 11/15/22 11:36:35 General Case Data - IR Entry 1 Case Information Room AH IR 17 Case Level IR Level 2 Wound Class None Specialty SN Radiology Procedure ASA Class None Diagnosis Preop Diagnosis cerival cancer Postop Same As Preop Yes Postop Diagnosis cerival cancer Last Modified By: Sam Junior Devika A 11/15/22 11:37:38 Medication Administration- IR Entry 1 [...] Deborah E Verbal Order Read JANET FLOREZ MD, LAURIAN M MD DEAN, LAURIAN M MD Back from: Last Modified By: JAMAL [...] Padmini Fairchild Rad results are properly Tech, Bollon Jet Engine Mechanic labeled and Devika A appropriately displayed, Confirm/obtain preop antibiotic order., Double verification of sterility indicators complete Instrument Sterility Team Members JANET FLOREZ MD, Verifying Sterility JAMAL Lindsey, MorganersPadmini landry Jet Engine Mechanic, Bollon, Jet Engine Mechanic Devika A Procedure IR Neph Cath-Neph Ureter [...] Yes Checked Last Modified By: Sam Junior Devika A 11/15/22 11:32:34 Radiology Procedure Plan [...] Radiology - Action Plan Outcomes Met? 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 Enrolled Nurse: Dr. Caio Florez Procedure: _Nu stent exchange [...] Boyce MD Interventional Radiology IR dept: x [id number] Available on [facility] [employer] Digitally Signed by JANET FLOREZ MD on 11/15/2022 12:40 PM [facility]doiqrxi96-36-8164 Note Interventional Radiology Focused Preprocedure History/Physical Reason [...] Ready to change: Yes. Physical Exam Vitals: Rkpjenkdlxx47.8 (09:52) Systolic Blood PressureNo result Diastolic Blood PressureNo result Pulse69 (09:52) WaR297 (09:52) Respiratory Rate14 (09:52) General: Alert, cooperative. [...] JANET FLOREZ MD on 11/15/2022 01:56 PM [id number] Hospital Discharge instructions Patient Education 10/08/2022 16:44:11 Pyelonephritis, Adult, Xzab-po-Qgbj Pyelonephritis, Adult Pyelonephritis is an infection that [...] even if youstart to feel better. Take uwef-nrv-taokkey and prescription medicines only as told by [...] 11/27/2005 Document Revised: 08/24/2019 Document Reviewed: 08/24/2019 [employer] Patient Education 2020 Smule. Follow Up Care 09/30/2022 10:05:59 With:[facility] Address: When: Unknown Comments:[facility] to provide iv pole, tubing, and medication for iv antibiotics With:FLIP MARTIN Address: [address] [place] [address] Gynecologic Oncology [place], [place] [phone]- Business (1) When: Unknown Comments:Please call the office to schedule a follow up appointment within 2 weeks With:[facility] Address:Unknown When:10/11/2022 09:00:00 Comments:Outpatient port care dressing change and labs [facility] 12-06-2022 Note Discharge Instructions Thank you for [...] 01/01/2023 11:30 AM EST FLIP MARTIN MD [facility] [address] [place] [phone] Follow Up Appointments Follow Up with [facility] When 10/11/2022 09:00 AM EST Why: Outpatient port care dressing change and labs Follow Up with [facility] When Why: [facility] to provide iv pole, tubing, and medication for iv antibiotics Where: Follow Up with FLIP MARTIN When Why: Please call the office to schedule a follow up appointment within 2 weeks Where: [address] [place] [address] [place] [address]- Business (1) The Following Activity and Diet Have [...] needed for constipation Refills: 2 Pickup at [facility] New dronabinol (Marinol 2.5 mg oral capsule) 1 cap by mouth Two (2) times a day Cervical cancer Decreased appetite Duration: 21 Days Pickup at [facility] New gabapentin (gabapentin 300 mg oral capsule) 1 cap by mouth Daily at bedtime Cervical cancer Duration: 30 Days Refills: 3 Pickup at [facility] New meropenem (meropenem 1000 mg intravenous injection) 1,000 Milligram IV Piggyback Every 8 hours New morphine (MS Contin 30 mg/ 8-12 hrs oral tablet, extended release) 1 tab(s) by mouth Every 12 hours Cervical cancer Duration: 21 Days Pickup at [facility] New oxyCODONE (oxyCODONE 10 mg oral tablet ( IMMEDIATE release )) 1 tab(s) by mouth Every 4 hours as needed for abdominal discomfort Cervical cancer Duration: 21 Days Pickup at [facility] Unchanged acetaminophen (Tylenol 325 mg oral capsule) [...] prior to taking pain medication Pickup at [facility] Unchanged sodium chloride (Normal Saline Flush 0.9% injectable solution) 10 Milliliter IR Drain Every day Pickup at [facility] Pharmacy Information [facility]: [address] [place] [address] [phone] [facility]: [address] [place] [phone] What How Much When Why Comments Stop [...] even if youstart to feel better. Take ukta-avs-drqkwie and prescription medicines only as told by [...] 11/27/2005 Document Revised: 08/24/2019 Document Reviewed: 08/24/2019 Elsevier Patient Education 2020 [employer] Additional Information VACCINATE! IT SAVES LIVES! Members of the community who have not yet received the COVID-19 vaccine and would like to receive it can visit one of [facility] vaccine clinics. There are many vaccine clinic locations within the [facility]. For locations and available times, please visit [email or web address] It is important to note that some COVID mobile vaccine clinics are held outdoors and may be canceled in rainy or stormy conditions. To learn more about pediatric vaccinations (ages 5-11), we invite you to visit the [facility] webpage. [email or web address] learn more about the COVID-19 vaccine, we invite you to visit the [facility] website for a list of frequently asked questions. [email or web address] _[email or web address] [facility] Patient Portal Access Instructions: Stay connected with your healthcare team and access your personal medical information anytime with the [facility] Patient Portal.If you would like a full copy of your medical records, please contact the [facility] Medical Records Department, Friday through Friday between 8a.m. and 4:30p.m. Please follow the directions below to access the portal: 1.Access the email account you provided upon registration to the [facility].2.Look for an invitation email from [facility].3.Open the email and access the invitation link: Accept Invitation to [facility]4.Fill in the required quintero to create your [...] you will allow to register on the [employer] [facility] Patient Portal for access to your information. You can also access the [facility] Patient Portal on the [employer] joya. Simply click on Health Records under [employer] and then click on the [employer] logo. HOW TO SAFELY DISPOSE OF PRESCRIPTION [...] Call your local pharmacy or go to [email or web address] to find one close to you.3.Make use of household items: Use cat litter or old coffee grounds to dispose medications if other options arenot available. Mix your drugs with these household products, seal them in an airtight container andthrow it into the garbage. Call [facility]: [phone] to be sure your drugs can be [...] COPY. Signatures Patient Education Materials Pyelonephritis, Adult, Rhcl-bv-Cgyn Medication Leaflets My discharge plan and instructions have been reviewed and explained to me and I,LALY NAVAS understand my current condition and have read and understand these discharge instructions. I have received a written copy of the plan/instructions. If I have questions, I am aware that I should contact my doctor. Patient/[employer] Signature: Date/Time: Relationship to Patient: Witness Name/Signature: Date/Time: [id number] Note Date of Service 10/08/22 Chief Complaint [...] qDayAC sodium chloride 0.9% 10 ml syringe jerri flush 0.09 gram(s) 10 mL, IR Drain, Daily sodium chloride 0.9% 10 ml syringe jerri flush 10 mL, IR Drain, q8h Continuous: [...] 1. Successful placement of a new 8 Ch[place] 26 cm left nephroureteral stent. 2. Left [...] DILLAN KUMAR MD on 10/08/2022 05:52 AM [facility]burgBkjekkyg99-15-5269 Note Date of Service 10/08/22 Chief Complaint [...] qDayAC sodium chloride 0.9% 10 ml syringe jerri flush 0.09 gram(s) 10 mL, IR Drain, Daily sodium chloride 0.9% 10 ml syringe jerri flush 10 mL, IR Drain, q8h Continuous: [...] 1. Successful placement of a new 8 [place] 26 cm left nephroureteral stent. 2. Left [...] DILLAN KUMAR MD on 10/08/2022 05:52 AM [facility]Vtiryuid41-01-5161 Note Date of Service 10/08/22 Chief Complaint [...] qDayAC sodium chloride 0.9% 10 ml syringe jerri flush 0.09 gram(s) 10 mL, IR Drain, Daily sodium chloride 0.9% 10 ml syringe jerri flush 10 mL, IR Drain, q8h Continuous: [...] 1. Successful placement of a new 8 Ch[place] 26 cm left nephroureteral stent. 2. Left [...] DILLAN KUMAR MD on 10/08/2022 05:52 AM [facility]burgYqshitpo41-66-4193 Nurse Progress note Tried explaining to patient [...] by JAMAL Ferrer on 10/08/2022 12:32 AM [facility]Irvvwrle67-68-3732 Note Date of Service 10/07/22 Chief Complaint [...] qDayAC sodium chloride 0.9% 10 ml syringe jerri flush 0.09 gram(s) 10 mL, IR Drain, Daily sodium chloride 0.9% 10 ml syringe jerri flush 10 mL, IR Drain, q8h Continuous: [...] 1. Successful placement of a new 8 Ch[place] 26 cm left nephroureteral stent. 2. Left [...] -Renal function Left:right, 27:73%. -Current Pain management: TERRITORY SUPERVISOR, 15 mg MS Contin BID, Gabapentin 300 [...] DILLAN KUMAR MD on 10/07/2022 06:01 AM [id number] Note Date of Service 10/07/22 Chief Complaint [...] qDayAC sodium chloride 0.9% 10 ml syringe jerri flush 0.09 gram(s) 10 mL, IR Drain, Daily sodium chloride 0.9% 10 ml syringe jerri flush 10 mL, IR Drain, q8h Continuous: [...] 1. Successful placement of a new 8 Ch[place] 26 cm left nephroureteral stent. 2. Left [...] -Renal function Left:right, 27:73%. -Current Pain management: TERRITORY SUPERVISOR, 15 mg MS Contin BID, Gabapentin 300 [...] DILLAN KUMAR MD on 10/07/2022 06:01 AM [id number] Note Date of Service 10/06/22 Chief Complaint [...] qDayAC sodium chloride 0.9% 10 ml syringe jerri flush 0.09 gram(s) 10 mL, IR Drain, Daily sodium chloride 0.9% 10 ml syringe jerri flush 10 mL, IR Drain, q8h Continuous: (1) HYDROmorphone TERRITORY SUPERVISOR in 50mL NS 10 mg 10 mg [...] 1. Successful placement of a new 8 Ch[place] 26 cm left nephroureteral stent. 2. Left [...] -Renal function Left:right, 27:73%. -Current Pain management: TERRITORY SUPERVISOR, 15 mg MS Contin BID, Gabapentin 300 [...] DILLAN KUMAR MD on 10/06/2022 08:18 AM [facility]burgUtqiozye16-67-4975 Note Date of Service 10/06/22 Chief Complaint [...] qDayAC sodium chloride 0.9% 10 ml syringe jerri flush 0.09 gram(s) 10 mL, IR Drain, Daily sodium chloride 0.9% 10 ml syringe jerri flush 10 mL, IR Drain, q8h Continuous: (1) HYDROmorphone TERRITORY SUPERVISOR in 50mL NS 10 mg 10 mg [...] 1. Successful placement of a new 8 Ch[place] 26 cm left nephroureteral stent. 2. Left [...] -Renal function Left:right, 27:73%. -Current Pain management: TERRITORY SUPERVISOR, 15 mg MS Contin BID, Gabapentin 300 [...] DILLAN KUMAR MD on 10/06/2022 08:18 AM [facility]burgZfphhxpq89-22-2456 Note Date of Service 10/06/22 Chief Complaint [...] qDayAC sodium chloride 0.9% 10 ml syringe jerri flush 0.09 gram(s) 10 mL, IR Drain, Daily sodium chloride 0.9% 10 ml syringe jerri flush 10 mL, IR Drain, q8h Continuous: (1) HYDROmorphone TERRITORY SUPERVISOR in 50mL NS 10 mg 10 mg [...] 1. Successful placement of a new 8 Ch[place] 26 cm left nephroureteral stent. 2. Left [...] -Renal function Left:right, 27:73%. -Current Pain management: TERRITORY SUPERVISOR, 15 mg MS Contin BID, Gabapentin 300 [...] DILLAN KUMAR MD on 10/06/2022 08:18 AM [facility]Ropegurx71-44-3822 Note ORIGINAL EXAMINATION: CT UROGRAM 10/05/2022 2:05 [...] pathologically enlarged left para-aortic lymph nodes seen. [employer] lymph node is seen on series 2, [...] Sign Date: 10/05/2022 9:17:10 PM Ordering Provider: [facility]12-03-2022 Note ORIGINAL EXAMINATION: CT UROGRAM 10/05/2022 2:05 [...] pathologically enlarged left para-aortic lymph nodes seen. [employer] lymph node is seen on series 2, [...] Sign Date: 10/05/2022 9:17:10 PM Ordering Provider: [facility]12-03-2022 Note Date of Service 10/05/22 [...] qDay sodium chloride 0.9% 10 ml syringe jerri flush 0.09 gram(s) 10 mL, IR Drain, Daily sodium chloride 0.9% 10 ml syringe jerri flush 10 mL, IR Drain, q8h Continuous: (1) HYDROmorphone TERRITORY SUPERVISOR in 50mL NS 10 mg 10 mg [...] 1. Successful placement of a new 8 Ch[place] 26 cm left nephroureteral stent. 2. Left [...] with Dr. Martin. -Renal function Left:right, 27:73%. -TERRITORY SUPERVISOR continued for now, consider d/c to oral [...] DILLAN KUMAR MD on 10/05/2022 08:33 AM [id number] Note Date of Service 10/05/22 Chief Complaint [...] qDay sodium chloride 0.9% 10 ml syringe jerri flush 0.09 gram(s) 10 mL, IR Drain, Daily sodium chloride 0.9% 10 ml syringe jerri flush 10 mL, IR Drain, q8h Continuous: (1) HYDROmorphone TERRITORY SUPERVISOR in 50mL NS 10 mg 10 mg [...] 1. Successful placement of a new 8 Chadian 26 cm left nephroureteral stent. 2. Left [...] of bilateral kidneys. Differential of Renal function 27/. -Pt's pain appears to be chronic in nature. Will discuss pain management with Dr. Martin. -Renal function Left:right, 27:73%. -TERRITORY SUPERVISOR continued for now, consider d/c to oral [...] DILLAN KUMAR MD on 10/05/2022 08:33 AM [facility]Mperorma58-59-3874 Note Date of Service 10/04/22 Chief Complaint [...] 720.00 Output Urine Voided 250.00 Urostomy Output: 202.00 Total Summary Total Intake 720.00 Total Output [...] qDay sodium chloride 0.9% 10 ml syringe jerri flush 0.09 gram(s) 10 mL, IR Drain, Daily sodium chloride 0.9% 10 ml syringe jerri flush 10 mL, IR Drain, q8h Continuous: (1) HYDROmorphone TERRITORY SUPERVISOR in 50mL NS 10 mg 10 mg [...] 1. Successful placement of a new 8 Chadian 26 cm left nephroureteral stent. 2. Left [...] of bilateral kidneys. Differential of Renal function /. -Pt's pain appears to be chronic in nature at this time and separate from her pyelonephritis. We will stop the TERRITORY SUPERVISOR and transition to oral medications. Will discuss [...] DILLAN KUMAR MD on 10/04/2022 06:55 AM [id number] Infectious disease Progress note Date of Service 10/04/2022 Objective Vitals and Measurements T: 36.7 C (Oral) TMIN: 36.7 C (Oral) TMAX: 36.9 C (Oral) HR: 88 RR: 18 BP: 108/73 SpO2: 98% Physical Exam Chart reviewed, patient examined. Patient is alert and oriented x3, tearful and a bit anxious but FSC, resting in bed on Dilaudid TERRITORY SUPERVISOR pump. Dilaudid PCR syringe is empty, RN [...] Patient reports she is very unhappy with COMMERCIAL INSULATOR resident who assessed her this morning. Requesting to speak with Dr Martin. channeler outsole notified. SGOT 12, SGPT <7 FOCUSED ASSESSMENT: [...] qDay sodium chloride 0.9% 10 ml syringe jerri flush 0.09 gram(s) 10 mL, IR Drain, Daily sodium chloride 0.9% 10 ml syringe jerri flush 10 mL, IR Drain, q8h Continuous: (1) HYDROmorphone TERRITORY SUPERVISOR in 50mL NS 10 mg 10 mg [...] Emili Clark RN on 10/04/2022 09:27 AM [id number] Infectious disease Progress note Date of Service 10/04/2022 Objective Vitals and Measurements T: 36.7 C (Oral) TMIN: 36.7 C (Oral) TMAX: 36.9 C (Oral) HR: 88 RR: 18 BP: 108/73 SpO2: 98% Physical Exam Chart reviewed, patient examined. Patient is alert and oriented x3, tearful and a bit anxious but FSC, resting in bed on Dilaudid TERRITORY SUPERVISOR pump. Dilaudid PCR syringe is empty, RN [...] Patient reports she is very unhappy with COMMERCIAL INSULATOR resident who assessed her this morning. Requesting to speak with Dr Martin. channeler outsole notified. SGOT 12, SGPT <7 FOCUSED ASSESSMENT: [...] qDay sodium chloride 0.9% 10 ml syringe jerri flush 0.09 gram(s) 10 mL, IR Drain, Daily sodium chloride 0.9% 10 ml syringe jerri flush 10 mL, IR Drain, q8h Continuous: (1) HYDROmorphone TERRITORY SUPERVISOR in 50mL NS 10 mg 10 mg [...] Emili Clark RN on 10/04/2022 09:27 AM [facility]burgRaqiqpju71-19-8139 Note Date of Service 10/04/22 Chief Complaint [...] qDay sodium chloride 0.9% 10 ml syringe jerri flush 0.09 gram(s) 10 mL, IR Drain, Daily sodium chloride 0.9% 10 ml syringe jerri flush 10 mL, IR Drain, q8h Continuous: (1) HYDROmorphone TERRITORY SUPERVISOR in 50mL NS 10 mg 10 mg [...] 1. Successful placement of a new 8 Chadian 26 cm left nephroureteral stent. 2. Left [...] from her pyelonephritis. We will stop the TERRITORY SUPERVISOR and transition to oral medications. Will discuss [...] DILLAN KUMAR MD on 10/04/2022 06:55 AM [facility]burgXixnubpo56-20-1271 Note Date of Service 10/03/2022 Chief Complaint Abdominal pain Difficulty urinating Subjective Patient reports her acute pain has improved with the Dilaudid TERRITORY SUPERVISOR however her chronic pain at the nephrostomy [...] qDay sodium chloride 0.9% 10 ml syringe jerri flush 0.09 gram(s) 10 mL, IR Drain, Daily sodium chloride 0.9% 10 ml syringe jerri flush 10 mL, IR Drain, q8h Continuous: (1) HYDROmorphone TERRITORY SUPERVISOR in 50mL NS 10 mg 10 mg [...] 1. Successful placement of a new 8 [place] 26 cm left nephroureteral stent. 2. Left [...] for NM Kidney scan. Will discuss discontinuing TERRITORY SUPERVISOR Dilaudid with Dr. Hilliard today. Digitally Signed by PRIMO CANELA MD on 10/03/2022 06:57 AM [facility]burgTckgupce87-88-4629 Note ORIGINAL EXAMINATION: NUCLEAR MEDICINE RENAL SCAN10/03/2022 [...] Date: 10/03/2022 2:27:51 PM Ordering Provider: DILLAN STACY [facility]Ycuiepqj45-97-1611 Note ORIGINAL EXAMINATION: NUCLEAR MEDICINE RENAL SCAN10/03/2022 [...] Sign Date: 10/03/2022 2:27:51 PM Ordering Provider: [facility]12-01-2022 Infectious disease Progress note Date of Service 10/03/2022 Objective Vitals and Measurements T: 36.7 C (Oral) TMIN: 36.7 C (Oral) TMAX: 36.8 C (Oral) HR: 96 RR: 16 BP: 106/73 SpO2: 97% Physical Exam Chart reviewed, patient examined. Patient is alert and oriented x3, resting in bed on Dilaudid TERRITORY SUPERVISOR pump. No c/o VD. Reports improving nausea. [...] qDay sodium chloride 0.9% 10 ml syringe jerri flush 0.09 gram(s) 10 mL, IR Drain, Daily sodium chloride 0.9% 10 ml syringe jerri flush 10 mL, IR Drain, q8h Continuous: (1) HYDROmorphone TERRITORY SUPERVISOR in 50mL NS 10 mg 10 mg [...] (s): 0.64 Imaging Results and Diagnostics 10/03 CT Kidney Scan Pending completion and results Problem List History of cervical cancer status post chemoradiation Left nephrostomy tube in place, last exchanged 08/14/2022 Acute pyelonephritis Complicated UTI Chest port in place Digitally Signed by Emili Clark RN on 10/03/2022 08:58 AM [facility]Uzwwcwny42-84-6886 Consult note Chief complaint anxiety History of present illness 31-year-old female admitted with a history of cervical cancer status post chemoradiation as well as a history of obstructive uropathy states longstanding anxiety. I evaluated this patient in the presence of health care social worker Tasha Wallace. Patient states that she does [...] CLOTILDE SHAY MD on 10/03/2022 10:14 AM [facility]Vyxmnmzz30-32-0530 Note IR Procedure Record Summary Primary Physician: JANET FLOREZ MD Finalized Date/Time: 10/03/22 09:10:23 Pt. Name: LORI NAVASCHRIS LambertO.B./Sex: 1990 Female Med Rec #: [id number] Physician: FLIP MARTIN MD Financial #: [id number] Pt. Type: I Room/Bed: [facility]/A Admit/Disch: 09/30/22 10:04:48 - Institution: Allergies identified in patient's electronic medical record at time of printing on 10/03/22 Entry 1 Substance penicillin Reaction Type Allergy Last Modified By: JAMAL Samuel 02/03/21 17:13:24 Case Attendance- IR Entry 1 Entry 2 Entry 3 Case Attendee JANET FLOREZ MD Jeane, Marisa Kearney RN Jet Engine Mechanic Role Performed Primary Surgeon Scrub Technologist Procedure Nurse Details Time In 10/02/22 14:24:00 10/02/22 14:24:00 10/02/22 14:24:00 Time Out 10/02/22 14:50:00 10/02/22 14:55:00 10/02/22 14:55:00 Procedure/Preference IR Neph Cath-Neph IR Neph Cath-Neph IR Neph Cath-Neph Card Ureter W/Guide Left SN Ureter W/Guide Left SN Ureter W/Guide Left SN Last Modified By: Padmini Fairchild Megan R Rad Fierstos, Megan R Jet Engine Mechanic 10/02/22 14:53:31 Tech 10/02/22 14:53:31 Tech 10/02/22 14:53:31 Entry 4 Case Attendee Padmini Fairchild Jet Engine Mechanic Role Performed Circulating Technologist Details Time In 10/02/22 14:24:00 Time Out 10/02/22 14:55:00 Procedure/Preference IR Neph Cath-Neph Card Ureter W/Guide Left SN Last Modified By: Padmini Fairchild Jet Engine Mechanic 10/02/22 14:53:31 Radiology Procedures- IR Entry 1 Procedure/Preference IR Neph Cath-Neph Actual Procedure IR Neph-ureter w guide Card Ureter W/Guide Left SN left SN Primary Procedure Yes Primary Surgeon JANET FLOREZ MD Anesthesia/Sedation Local, IV Sedation Type Additional Procedure Times Start 10/02/22 14:30:00 Stop 10/02/22 14:50:00 Specialty Service SN Radiology Procedure EBL 1 mL Last Modified By: Padmini Fairchild Jet Engine Mechanic 10/02/22 15:00:02 Radiology Procedure Details - IR [...] cervical cancer Last Modified By: Padmini Fairchild [place] 10/02/22 14:31:54 Medication Administration- IR Entry 1 [...] than Primary Last Modified By: Padmini Fairchild Jet Engine Mechanic 10/02/22 14:31:36 Immediate Post Procedure Note - IR Signed By: JANET FLOREZ MD 10/02/22 14:51 Allergy Information- IR Entry 1 Allergies Reviewed? Yes Allergies Reviewed Medical Record With Last Modified By: Padmini Fairchild Jet Engine Mechanic 10/02/22 14:25:11 Radiology Protocols/Time Out- IR Entry [...] Time Out Patti Ching Relevant images and Jet Engine Mechanic, Marisa Gastelum results are properly RN, Padmini Fairchild labeled and Jet Engine Mechanic appropriately displayed, Alcohol based prep dry Instrument Sterility Team Members Patti Ching Verifying Sterility Jet Engine Mechanic Procedure IR Neph Cath-Neph Ureter W/Guide Left SN Last Modified By: Padmini Fairchild Jet Engine Mechanic 10/02/22 14:30:43 Skin Prep- IR Entry 1 Procedure IR Neph Cath-Neph Ureter W/Guide Left SN Skin Prep Prep Area Flank Side Left By Patti Ching Prep Agents Betadine Scrub Jet Engine Mechanic Hair Removal Method N/A Last Modified By: Padmini Fairchild Jet Engine Mechanic 10/02/22 14:29:37 Patient Positioning- IR Entry 1 Procedure IR Neph Cath-Neph Body Position OP Prone Ureter W/Guide Left SN Feet Uncrossed? Yes Pressure Points n/a Checked Last Modified By: Padmini Fairchild Jet Engine Mechanic 10/02/22 14:29:49 Radiology Procedure Plan - IR [...] Radiology - Action Plan Outcomes Met? Yes Sheet Metal Duct Installer Apprentice Marisa Gastelum RN Completing Procedure Plan Last Modified By: Padmini Fairchild [place] 10/02/22 14:31:10 Case Comments Finalized By: Ana Tipton Document Signatures Signed By: Padmini Fairchild Jet Engine Mechanic 10/02/22 15:02 Ana Tipton 10/03/22 09:10 [facility]Loowcsbp72-09-0236 Infectious disease Progress note Date of Service 10/03/2022 Objective Vitals and Measurements T: 36.7 C (Oral) TMIN: 36.7 C (Oral) TMAX: 36.8 C (Oral) HR: 96 RR: 16 BP: 106/73 SpO2: 97% Physical Exam Chart reviewed, patient examined. Patient is alert and oriented x3, resting in bed on Dilaudid TERRITORY SUPERVISOR pump. No c/o VD. Reports improving nausea. [...] qDay sodium chloride 0.9% 10 ml syringe jerri flush 0.09 gram(s) 10 mL, IR Drain, Daily sodium chloride 0.9% 10 ml syringe jerri flush 10 mL, IR Drain, q8h Continuous: (1) HYDROmorphone TERRITORY SUPERVISOR in 50mL NS 10 mg 10 mg [...] Emili Clark RN on 10/03/2022 08:58 AM [facility]Rsqwojpn87-88-0142 Note Date of Service 10/03/2022 Chief Complaint Abdominal pain Difficulty urinating Subjective Patient reports her acute pain has improved with the Dilaudid TERRITORY SUPERVISOR however her chronic pain at the nephrostomy [...] qDay sodium chloride 0.9% 10 ml syringe jerri flush 0.09 gram(s) 10 mL, IR Drain, Daily sodium chloride 0.9% 10 ml syringe jerri flush 10 mL, IR Drain, q8h Continuous: (1) HYDROmorphone TERRITORY SUPERVISOR in 50mL NS 10 mg 10 mg [...] 1. Successful placement of a new 8 [place] 26 cm left nephroureteral stent. 2. Left [...] for NM Kidney scan. Will discuss discontinuing TERRITORY SUPERVISOR Dilaudid with Dr. Hilliard today. Digitally Signed by PRIMO CANELA MD on 10/03/2022 06:57 AM [facility]Awqzzohm35-79-2621 Note ORIGINAL PROCEDURE: INTRODUCTION-NEPHRO TUBE MODERATE CONSCIOUS [...] the nurse. The patient has an active TERRITORY SUPERVISOR pump present. Very generous lidocaine was utilized FLUOROSCOPY DOSE AND TYPE OR TIME AND EXPOSURES: Fluoroscopy time 0.8min Total DLP: 5 mGy Number of images: 2 DESCRIPTION OF PROCEDURE: Informed consent was obtained after a detailed explanation of the procedure including risks, benefits, and alternatives. [place] protocol was observed. Sterile gowns, masks, hats [...] catheter was readily removed. A new 8 Chadian 26 cm nephroureteral stent was placed. Its [...] 1. Successful placement of a new 8 [place] 26 cm left nephroureteral stent. 2. Left nephrostogram and antegrade pyelography Interpreted by: Janet Florez Preliminary Report By: Janet Florez Electronically signed By Janet Florez Dictated Date: 10/02/2022 7:44:31 PM Prelim Date: 10/02/2022 7:49:25 PM Sign Date: 10/02/2022 7:49:25 PM Ordering Provider: [facility]11-30-2022 Note Date of Service 10/02/2022 Chief Complaint Abdominal pain Difficulty urinating Subjective Patient seen and examined. She is upset this morning, she was not given her diet order in time and eventually was too upset to eat after it was brought to her. Her pain has improved significantly with the TERRITORY SUPERVISOR Dilaudid. She denies nausea, vomiting, fever, chills, [...] qDay sodium chloride 0.9% 10 ml syringe jerri flush 0.09 gram(s) 10 mL, IR Drain, Daily Continuous: (1) HYDROmorphone TERRITORY SUPERVISOR in 50mL NS 10 mg 10 mg [...] pending, for NM Kidney scan, NPO at [place] for nephrostomy tube exchange, resume diet after. Will discuss discontinuing TERRITORY SUPERVISOR Dilaudid after nephrostomy exchange. Digitally Signed by PRIMO CANELA MD on 10/02/2022 06:39 AM [facility]burgWlweneet05-26-3908 Note ORIGINAL PROCEDURE: INTRODUCTION-NEPHRO TUBE MODERATE CONSCIOUS [...] the nurse. The patient has an active TERRITORY SUPERVISOR pump present. Very generous lidocaine was utilized FLUOROSCOPY DOSE AND TYPE OR TIME AND EXPOSURES: Fluoroscopy time 0.8min Total DLP: 5 mGy Number of images: 2 DESCRIPTION OF PROCEDURE: Informed consent was obtained after a detailed explanation of the procedure including risks, benefits, and alternatives. [place] protocol was observed. Sterile gowns, masks, hats [...] catheter was readily removed. A new 8 [place] 26 cm nephroureteral stent was placed. Its [...] 1. Successful placement of a new 8 [place] 26 cm left nephroureteral stent. 2. Left nephrostogram and antegrade pyelography Interpreted by: Janet Florez Preliminary Report By: Janet Florez Electronically signed By Janet Florez Dictated Date: 10/02/2022 7:44:31 PM Prelim Date: 10/02/2022 7:49:25 PM Sign Date: 10/02/2022 7:49:25 PM Ordering Provider: [facility]11-30-2022 Note Date of Service 10/02/2022 Chief Complaint Abdominal pain Difficulty urinating Subjective Patient seen and examined. She is upset this morning, she was not given her diet order in time and eventually was too upset to eat after it was brought to her. Her pain has improved significantly with the TERRITORY SUPERVISOR Dilaudid. She denies nausea, vomiting, fever, chills, [...] qDay sodium chloride 0.9% 10 ml syringe jerri flush 0.09 gram(s) 10 mL, IR Drain, Daily Continuous: (1) HYDROmorphone TERRITORY SUPERVISOR in 50mL NS 10 mg 10 mg [...] Activity: Ambulate >> Diet: Regular, NPO at [place] (CLD with medications) >> IVF: NS 90 [...] pending, for NM Kidney scan, NPO at [place] for nephrostomy tube exchange, resume diet after. Will discuss discontinuing TERRITORY SUPERVISOR Dilaudid after nephrostomy exchange. Digitally Signed by PRIMO CANELA MD on 10/02/2022 06:39 AM [facility]burgIccwughf37-65-4318 Infectious disease Progress note Date of Service 10/02/2022 Objective Vitals and Measurements T: 36.4 C (Oral) TMIN: 36.4 C (Oral) TMAX: 36.9 C (Oral) HR: 75 RR: 18 BP: 115/86 SpO2: 100% Physical Exam Chart reviewed, patient examined. Patient is alert and oriented x3, rather flat in affect, resting in bed on Dilaudid TERRITORY SUPERVISOR pump. No c/o VD. Reports ongoing nausea, requesting Ativan and Zofran. Reports generalized fatigue, did not sleep well overnight. Reports continued bilateral flank as well as abdominal pain, although does report improvement with TERRITORY SUPERVISOR. No other new complaints this AM, bedside [...] qDay sodium chloride 0.9% 10 ml syringe jerri flush 0.09 gram(s) 10 mL, IR Drain, Daily Continuous: (1) HYDROmorphone TERRITORY SUPERVISOR in 50mL NS 10 mg 10 mg [...] Emili Clark RN on 10/02/2022 08:54 AM [facility]10 Infectious disease Progress note Date of Service 10/02/2022 Objective Vitals and Measurements T: 36.4 C (Oral) TMIN: 36.4 C (Oral) TMAX: 36.9 C (Oral) HR: 75 RR: 18 BP: 115/86 SpO2: 100% Physical Exam Chart reviewed, patient examined. Patient is alert and oriented x3, rather flat in affect, resting in bed on Dilaudid TERRITORY SUPERVISOR pump. No c/o VD. Reports ongoing nausea, requesting Ativan and Zofran. Reports generalized fatigue, did not sleep well overnight. Reports continued bilateral flank as well as abdominal pain, although does report improvement with TERRITORY SUPERVISOR. No other new complaints this AM, bedside [...] qDay sodium chloride 0.9% 10 ml syringe jerri flush 0.09 gram(s) 10 mL, IR Drain, Daily Continuous: (1) HYDROmorphone TERRITORY SUPERVISOR in 50mL NS 10 mg 10 mg [...] Emili Clark RN on 10/02/2022 08:54 AM [facility]hljwrwm69-47-9872 Note Date of Service 10/02/2022 Chief Complaint Abdominal pain Difficulty urinating Subjective Patient seen and examined. She is upset this morning, she was not given her diet order in time and eventually was too upset to eat after it was brought to her. Her pain has improved significantly with the TERRITORY SUPERVISOR Dilaudid. She denies nausea, vomiting, fever, chills, [...] qDay sodium chloride 0.9% 10 ml syringe jerri flush 0.09 gram(s) 10 mL, IR Drain, Daily Continuous: (1) HYDROmorphone TERRITORY SUPERVISOR in 50mL NS 10 mg 10 mg [...] pending, for NM Kidney scan, NPO at [place] for nephrostomy tube exchange, resume diet after. Will discuss discontinuing TERRITORY SUPERVISOR Dilaudid after nephrostomy exchange. Digitally Signed by PRIMO CANELA MD on 10/02/2022 06:39 AM [facility]Xbmvhlac17-14-7841 Infectious disease Consult note Date of Service [...] faecalis Nuclear medicine renal scan is pending COMMERCIAL INSULATOR/onc board and following Discussed with patient, she [...] 100 mg= 1 cap(s), Oral, BID Dilaudid TERRITORY SUPERVISOR (0.2mg/1 mL) 10 mg, 10 mg= 50 [...] unit (06/16/01) Digitally Signed by Brenda López Licensed Scribe on 10/01/2022 10:58 AM Digitally Signed by MARGOTH RUVALCABA BA, MD on 10/01/2022 11:23 AM [facility]lujapmh58-77-6428 Infectious disease Consult note Date of Service [...] faecalis Nuclear medicine renal scan is pending COMMERCIAL INSULATOR/onc board and following Discussed with patient, she [...] 100 mg= 1 cap(s), Oral, BID Dilaudid TERRITORY SUPERVISOR (0.2mg/1 mL) 10 mg, 10 mg= 50 [...] RUVALCABA BA, MD on 10/01/2022 11:23 AM [facility]Nnztujmv96-99-7237 Note System generated consult for an establish left nephrostomy tube. Tube is secured with a StayFIX securement device. Patient is scheduled tomorrow for tube exchange. Digitally Signed by Rhea Pruett RN, Skin Team on 10/01/2022 10:01 AM [facility]Fpzupwig43-23-1594 Note Date of Service 10/01/2022 Chief Complaint [...] qDay sodium chloride 0.9% 10 ml syringe jerri flush 0.09 gram(s) 10 mL, IR Drain, [...] PRIMO CANELA MD on 10/01/2022 06:59 AM [facility]Ohkhdecx11-23-6280 History and physical note Date of Service [...] chest pain, dizziness, vaginal bleeding, vaginal discharge. 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 Menarche age 14. Amenorrheic since initiation of Chemoradiation. Denies mammogram ever. Colonoscopy in 2019. Denies history of STDs. Not sexually active. Family History Mother with breast cancer Sister with cervical cancer Grandmother with cervical cancer Aunts with cervical cancer Cousins with cervical cancer ONCOLOGY HISTORY: - 04/04/2020: CT scan abdomen and pelvis. [facility]. Thickened cervical wall with involvementof the [...] underwent for intracavitary brachii therapy applications with rvni-hohl-xpho iridium 192afterloading device utilizing a tandem and [...] Start Date End Date Elapsed Days IMRT COMMERCIAL INSULATOR Pelvis 6X 180 4,500 04/26/2020 06/02/2020 37 3D PM Bst 18X 180 540 06/05/2020 06/07/2020 2 GENETIC TESTING: - Patient had genetic testing sent through [facility]. No reportable somatic or germline pathogenic or [...] PRIMO CANELA MD on 09/30/2022 08:19 PM [facility]fqwdzio42-92-5515 Note Date of Service 10/01/2022 Chief Complaint [...] qDay sodium chloride 0.9% 10 ml syringe jerri flush 0.09 gram(s) 10 mL, IR Drain, [...] PRIMO CANELA MD on 10/01/2022 06:59 AM [facility]Gbpseklf92-69-9676 History and physical note Date of Service [...] chest pain, dizziness, vaginal bleeding, vaginal discharge. 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 Menarche age 14. Amenorrheic since initiation of Chemoradiation. Denies mammogram ever. Colonoscopy in 2019. Denies history of STDs. Not sexually active. Family History Mother with breast cancer Sister with cervical cancer Grandmother with cervical cancer Aunts with cervical cancer Cousins with cervical cancer ONCOLOGY HISTORY: - 04/04/2020: CT scan abdomen and pelvis. [facility]. Thickened cervical wall with involvementof the [...] underwent for intracavitary brachii therapy applications with cxqz-yrut-jxem iridium 192afterloading device utilizing a tandem and [...] Start Date End Date Elapsed Days IMRT COMMERCIAL INSULATOR Pelvis 6X 180 4,500 04/26/2020 06/02/2020 37 3D PM Bst 18X 180 540 06/05/2020 06/07/2020 2 GENETIC TESTING: - [facility] No reportable somatic or germline pathogenic or [...] PRIMO CANELA MD on 09/30/2022 08:19 PM [facility]Wocwlden83-45-5223 Evaluation + Plan noteExtracted from: Title:Gynecology Oncology [...] Date:01/01/2023 11:30:00 AM Scheduled Provider:FLIP MARTIN MD Location:COMMERCIAL INSULATOR ONC Appointment Type:SO OV Follow Up Future [...] IR Neph Cath-Neph Ureter W/Guide Left 06/02/23 [facility] 10-14-2022 Hospital Discharge instructions Patient Education 08/16/2022 13:25:49 Radiology- Nephrostomy Tube Insertion(CUSTOM) [facility] Nephrostomy Tube Insertion Discharge Instructions Interventional Radiology [facility] [address] [place] [address] The procedure that you had done today [...] mayexperience the feeling of needing to urinate. Cyls-ali-gnekfxc pain medication should be used for pain [...] instruction below: 8:00 am- 5:00 pm call [phone] After 5:00 pm call [phone] After 24 hours, contact the physician who ordered this procedure for you. Special Instructions: Follow Up Care 08/08/2022 16:44:45 With:FLIP MARTIN MD Address: [address] [place] [address] [place] [address]- [phone] When: Unknown Comments:call office for a follow up appointment even tho you have 1 for next year With:DOMINIQUE MARY MD Address: [address] [place] [address] [place] [address]- When:1-2 days Comments:Accepting new patients With:PRIYANK ROWLAND MD Address: [address] [place] [address]- When:1-2 days Comments:Accepting new patients With:RYAN POTTS LABOR CREW SUPERVISOR[facility] Address: [address] [place] [address]- When:1-2 days Comments:Accepting new patients [facility] 10-14-2022 Note Discharge Instructions Thank you for allowing [facility] to assist you with your healthcare needs. [...] Up 01/01/2023 11:30 AM FLIP CORRALES MD [facility] [address] [place] [address] Follow Up Appointments Follow Up with FLIP MARTIN MD When Why: call office for a follow up appointment even tho you have 1 for next year Where: [address] [place] [address] [place] [address]- [phone] Follow Up with DOMINIQUE MARY MD When Within 1-2 days Why: Accepting new patients Where: [address] [place] [address]- Follow Up with PRIYANK ROWLAND MD When Within 1-2 days Why: Accepting new patients Where: [address] [place] [address]- Follow Up with RYAN POTTS APRN-KANDY When Within 1-2 days Why: Accepting new patients Where: [address] [place] [address]- The Following Activity and Diet Have Been [...] Muscle spasm Duration: 10 Days Pickup at [facility] New HYDROmorphone (Dilaudid 2 mg oral tablet) 1 tab(s) by mouth Every 4 hours as needed for as needed for pain Cancer related pain History of radiation therapy Duration: 5 Days Pickup at [facility] New lidocaine topical (lidocaine 5% topical patch) 1 patch(es) Topical Once a day remove patches after 12 hours Pickup at [facility] 172 New naproxen (naproxen 250 mg oral tablet) 1 tab(s) by mouth Two (2) times a day Pickup at [facility] 172 New nitrofurantoin (Macrobid 100 mg oral capsule) 1 cap by mouth Two (2) times a day Duration: 3 Days Take with food Pickup at [facility] 172 New promethazine (promethazine 12.5 mg rectal suppository) 1 suppository(ies) in the rectum Every 6 hours as needed for for nausea/vomiting Pickup at [facility] 172 Changed acetaminophen (Tylenol 325 mg oral capsule) 650 Milligram by mouth Every 4 hours as needed for Pain, scale 1-3 Changed acetaminophen (Tylenol 325 mg oral tablet) 2 tab(s) by mouth Every 4 hours as needed for for pain Duration: 7 Days Pickup at [facility] 172 Unchanged LORazepam (Ativan 1 mg oral [...] Milliliter IR Drain Every day Pharmacy Information [facility]: [address] [place], [place] [phone] What How Much When Why Comments Stop [...] medication providers or retail pharmacies. Education Materials [facility] Nephrostomy Tube Insertion Discharge Instructions Interventional Radiology [facility] [address] [place] [address] The procedure that you had done today [...] mayexperience the feeling of needing to urinate. Ywtd-its-jsdocwz pain medication should be used for pain [...] instruction below: 8:00 am- 5:00 pm call [phone] After 5:00 pm call [phone] After 24 hours, contact the physician who ordered this procedure for you. Special Instructions: Additional Information VACCINATE! IT SAVES LIVES! Members of the community who have not yet received the COVID-19 vaccine and would like to receive it can visit one of [facility] vaccine clinics. There are many vaccine clinic locations within the [facility]. For locations and available times, please visit [email or web address] It is important to note that some COVID mobile vaccine clinics are held outdoors and may be canceled in rainy or stormy conditions. To learn more about pediatric vaccinations (ages 5-11), we invite you to visit the [facility] webpage. [email or web address] learn more about the COVID-19 vaccine, we invite you to visit the [facility] website for a list of frequently asked questions. [email or web address] [facility] Patient Portal Access Instructions: Stay connected with your healthcare team and access your personal medical information anytime with the [facility] Patient Portal.If you would like a full copy of your medical records, please contact the [facility] Records Department, Friday through Friday between 8a.m. and 4:30p.m. Please follow the directions below to access the portal: 1.Access the email account you provided upon registration to the [facility].2.Look for an invitation email from [facility].3.Open the email and access the invitation link: Accept Invitation to [facility]4.Fill in the required quintero to create your account. Sign into www.[employer] with your username and password that you [...] you will allow to register on the [employer] [facility] [employer] [facility] Patient Portal for access to your information. You can also access the [facility] Patient Portal on the [employer]. Simply click on Health Records under [employer] and then click on the [employer] logo. HOW TO SAFELY DISPOSE OF PRESCRIPTION [...] Call your local pharmacy or go to [email or web address] to find one close to you.3.Make use of household items: Use cat litter or old coffee grounds to dispose medications if other options arenot available. Mix your drugs with these household products, seal them in an airtight container andthrow it into the garbage. Call [facility]: [phone] to be sure your drugs can be [...] aware that I should contact my doctor. Patient/[employer] Signature: Date/Time: Relationship to Patient: Witness Name/Signature: Date/Time: [facility]rzjddsx82-42-5913 Palliative care Progress note Date of Service [...] on an every 4 hour basis, the COMMERCIAL INSULATOR team may want to consider starting her on a long-acting pain medicine if they felt as though that was appropriate. I did explain to Dr. Fitzgerald since this is a chronic pain, we would not manage in the outpatient setting. Patient's OARRS re port was reviewed. Digitally Signed by LESIA DENIS on 08/16/2022 01:17 PM [facility]Qspfdurf49-43-2670 Note Date of Service 08/16/2022 Chief Complaint [...] Converses easily. Abdom: Soft, nontender, nondistended. +BS n0xtflnrsmf Extrem: no edema, no erythema, nontender Weight [...] MD Digitally Signed by CLOTILDE GARCIA MD [facility]Vsvpmplo13-87-1424 Note Date of Service 08/15/2022 Chief Complaint [...] Converses easily. Abdom: Soft, nontender, nondistended. +BS p3sumojviru Extrem: no edema, no erythema, nontender Weight [...] ALANNA SCANLON DO on 08/15/2022 08:02 AM [facility]Vvidmrdb04-57-0505 Palliative care Consult note Date of Service [...] by LESIA DENIS on 08/15/2022 03:37 PM [facility]Cnpcwgfg41-86-7563 Note Date of Service 08/15/2022 Chief Complaint [...] Converses easily. Abdom: Soft, nontender, nondistended. +BS c0qcspneebr Extrem: no edema, no erythema, nontender Weight [...] will discuss with attending. Digitally Signed by AALNNA SCANLON DO on 08/15/2022 07:51 AM Digitally Signed by ALANNA SCANLON DO on 08/15/2022 08:02 AM [facility]Elnjztvt23-44-0921 Note Date of Service 08/15/2022 Chief Complaint [...] Converses easily. Abdom: Soft, nontender, nondistended. +BS o1tquyoczso Extrem: no edema, no erythema, nontender Weight [...] ALANNA SCANLON DO on 08/15/2022 08:02 AM [facility]Ipqfhybw68-17-5271 Note Date of Service 08/15/2022 Chief Complaint [...] Converses easily. Abdom: Soft, nontender, nondistended. +BS n5kibrcdrww Extrem: no edema, no erythema, nontender Weight [...] ALANNA SCANLON DO on 08/15/2022 08:02 AM [facility]Zsvclxpe17-19-4244 Note Date of Service 08/15/2022 Chief Complaint [...] Converses easily. Abdom: Soft, nontender, nondistended. +BS q1jtalsvnvq Extrem: no edema, no erythema, nontender Weight [...] ALANNA SCANLON DO on 08/15/2022 08:02 AM [facility]Lxddzscb41-00-2234 Nurse Progress note Patient refused colace. Stated It's been giving heartburn for the last 3 days. Digitally Signed by Cecilia English LPN on 08/14/2022 08:22 PM [facility]Dfolqsul88-16-7422 Nurse Progress note Patient refused colace. Stated It's been giving heartburn for the last 3 days. Digitally Signed by Cecilia English LPN on 08/14/2022 08:22 PM [facility]Ycdqjsiu57-53-3535 Note Date of Service 08/14/2022 Chief Complaint [...] Converses easily. Abdom: Soft, nontender, nondistended. +BS h3indllcydu. L nephrostomy fluid yellow tinged. Extrem: no [...] ALANNA SCANLON DO on 08/14/2022 06:50 AM [facility]Dizcvjmj50-07-0317 Note IR Procedure Record Summary Primary Physician: VIRAL MANUEL MD Finalized Date/Time: 08/14/22 14:10:33 Pt. Name: LALY NAVAS/Sex: 1990 Female Med Rec #: [id number] Physician: FLIP MARTIN MD Financial #: [id number] Pt. Type: I Room/Bed: 66/A Admit/Disch: 08/08/22 16:43:27 - Institution: Allergies identified in patient's electronic medical record at time of printing on 08/14/22 Entry 1 Entry 2 Substance codeine penicillin Reaction Type Allergy Allergy Last Modified By: Cesar Hyman RN, RN Evan 02/03/21 04/12/20 15:04:17 17:13:24 Case Attendance- IR Entry 1 Entry 2 Entry 3 Case Attendee VIRAL MANUEL MD [facility] JAMAL Andres Role Performed Primary Surgeon Scrub [...] mL Medication OMNIPAQUE 350 50ML 10/PK Y-540 Radiology Flouroscopy Fluoroscopy Used? Yes Fluoro [...] site marked, Present for Time Out Sandi Jet Engine Mechanic Devika Relevant images and A, JAMAL Cuellar results are properly labeled and appropriately displayed, Alcohol based prep dry, Double verification of sterility indicators complete Instrument Sterility Team Members VIRAL MANUEL MD, Verifying Sterility Juleslon Jet Engine Mechanic Devika A Procedure IR Neph Cath-Neph Ureter W/Guide Left SN Last Modified By: JAMAL Cuellar 08/14/22 14:10:26 Skin Prep- IR Entry 1 Procedure IR Neph Cath-Neph Ureter W/Guide Left SN Skin Prep Prep Area Flank Side Left By Sandi Jet Engine Mechanic Devika A Prep Agents Betadine Solution Hair [...] Radiology - Action Plan Outcomes Met? 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 Abdom: Soft, nontender, nondistended. +BS r4botuxcuuu. L nephrostomy fluid yellow tinged. Extrem: no [...] ALANNA SCANLON DO on 08/14/2022 06:50 AM [facility]Qjzyugpb12-06-7539 Note Date of Service 08/14/2022 Chief Complaint [...] Converses easily. Abdom: Soft, nontender, nondistended. +BS z6vherbtnal. L nephrostomy fluid yellow tinged. Extrem: no [...] ALANNA SCANLON DO on 08/14/2022 06:50 AM [facility]burgNytxikik16-53-1594 Note Date of Service 08/13/2022 Chief Complaint [...] Converses easily. Abdom: Soft, nontender, nondistended. +BS q4solxeqpvm Extrem: no edema, no erythema, nontender Weight [...] ALANNA SCANLON DO on 08/13/2022 07:00 AM [facility]Mtkdpchs82-98-2469 Note Date of Service 08/13/2022 Chief Complaint [...] Converses easily. Abdom: Soft, nontender, nondistended. +BS l5mchwwctwk Extrem: no edema, no erythema, nontender Weight [...] Date: August 09, 2022 Verified By: HERNANDEZ RODRIGZE MD CLINICAL STATEMENT: IMPRESSION: Normal appearing right [...] ALANNA SCANLON DO on 08/13/2022 07:00 AM [facility]Ogrxjjag52-68-2754 Note ORIGINAL EXAMINATION: THREE XRAY VIEWS OF [...] Sign Date: 08/12/2022 11:43:25 PM Ordering Provider: [facility]10-10-2022 Note ORIGINAL EXAMINATION: THREE XRAY VIEWS OF [...] Sign Date: 08/12/2022 11:43:25 PM Ordering Provider: [facility]10-10-2022 Note Date of Service 08/12/2022 Chief Complaint [...] Converses easily. Abdom: Soft, nontender, nondistended. +BS z4aesvlptiw Extrem: no edema, no erythema, nontender Weight [...] ALANNA SCANLON DO on 08/12/2022 06:50 AM [facility]Vhsifpfx79-89-2690 Note Date of Service 08/12/2022 Chief Complaint [...] Converses easily. Abdom: Soft, nontender, nondistended. +BS d8imzxnlrhs Extrem: no edema, no erythema, nontender Weight [...] ALANNA SCANLON DO on 08/12/2022 06:50 AM [facility]Foanwaif46-23-6345 Note Date of Service 08/10/22 Chief Complaint [...] MARIA GODOY DO on 08/10/2022 07:21 AM [facility]Xxpfubwy76-48-4301 Note Date of Service 08/09/2022 Chief Complaint [...] use. Converses easily. Abdom: Soft, nondistended. +BS d4tpuezdrnc Extrem: no edema, no erythema, nontender Weight [...] -2019, Dr. Martin 4. Anxiety - consider social worker masters consult - declined counseling 5. Cervical cancer [...] 0, 08/08/22 17:26:00 EDT HYDROmorphone, Start: 08/08/22 17:: EDT, Dose = 1 mg, = 1 mL, IV Push, q2h, PRN, Pain, scale 7-10, 0, 08/08/22::00 EDT HYDROmorphone, Start: 08/08/22: EDT, Dose = 0.5 mg, = 0.5 mL, IV Push, q2h, PRN, Pain, scale 4-6, 0, 08/08/22: EDT melatonin, Start: 08/08/22: EDT, Dose = 3 mg, = 1 tab(s), Oral, qHS, PRN, as needed for insomnia, 0, 08/08/22:: EDT ondansetron, Start: 08/08/22 18:00:00 EDT, Dose = 4 mg, = 2 mL, IV Push, q4h, 0, 08/08/22: EDT oxyCODONE, Start: 08/08/22: EDT, Dose = 5 mg, = 1 tab(s), Oral, q4h, PRN, Pain, scale 4-6, 08/08/22:: EDT oxyCODONE, Start: 08/08/22:: EDT, Dose = 10 mg, = 2 tab(s), Oral, q4h, PRN, Pain, scale 7-10, 08/08/22:: EDT pantoprazole, Start: 08/08/22:: EDT, Dose = 40 mg, IV Push, qDay, PRN, Reflux, mL/hr, Infuseover: 2 minute(s), 0, 08/08/22::00 EDT promethazine, Start: 08/08/22: EDT, Dose = 12.5 mg, = 1 [...] ALANNA SCANLON DO on 08/09/2022 07:30 AM [facility]Ybrqjpbf07-82-6341 History and physical note Result type: History and Physical Result date: August 08, 2022 15:00 EDT Result status: Auth (Verified) Result title: History and Physical Performed by: ALANNA SCANLON DO on August 08, 2022 12:25 EDT Verified by: ALANNA SCANLON DO on August 08, 2022 20:00 EDT Encounter info: [id number], COMMERCIAL INSULATOR ONC, Office, 08/08/2022 - * Final Report [...] 31 Years old woman who presents from [facility] (drove self) for back pain, likely UTI. [...] use. Converses easily. Abdom: Soft, nondistended. +BS v4uqcquupxu. Tenderness to palpation in the left lower [...] 15:00 EDT Digitally Signed by JOYCE Pacheco Diandra on 08/09/2022 07:47 AM Digitally Signed by ALANNA SCANLON DO on 08/09/2022 11:59 AM [facility]zqlbiot07-86-6804 Note Date of Service 08/11/2022 Chief Complaint [...] FARZANA CAST DO on 08/11/2022 07:48 AM [facility]burgBayhodqw60-55-8083 Note Date of Service 08/11/2022 Chief Complaint [...] FARZANA CAST DO on 08/11/2022 07:48 AM [facility]Xdbnopsp69-46-1204 Note Date of Service 08/10/22 Chief Complaint [...] MARIA GODOY DO on 08/10/2022 07:21 AM [facility]Dvibymlw60-21-8992 Note Date of Service 08/10/22 Chief Complaint [...] MARIA GODOY DO on 08/10/2022 07:21 AM [facility]Tqrtrpde27-03-0690 Note Date of Service 08/09/2022 Chief Complaint [...] use. Converses easily. Abdom: Soft, nondistended. +BS l1sxuypcstl Extrem: no edema, no erythema, nontender Weight [...] -2019, Dr. Martin 4. Anxiety - consider social worker masters consult - declined counseling 5. Cervical cancer [...] BID, 08/08/22 17::00 EDT famotidine, Start: 08/08/22 17:: EDT, Dose = 20 mg, = 1 tab(s), Oral, BID, PRN, Reflux, 0, 08/08/22 17:26:00 EDT HYDROmorphone, Start: 08/08/22 17::00 EDT, Dose = 1 mg, = 1 [...] q4h, 0, 08/08/22 17:26:00 EDT oxyCODONE, Start: 08/08/22 17::00 EDT, Dose = 5 mg, = 1 tab(s), Oral, q4h, PRN, Pain, scale 4-6, 08/08/22 17:26:00 EDT oxyCODONE, Start: 08/08/22 17:26:00 EDT, Dose = 10 mg, = 2 tab(s), Oral, q4h, PRN, Pain, scale 7-10, 08/08/22::00 EDT pantoprazole, Start: 08/08/22:: EDT, Dose = 40 mg, IV Push, qDay, PRN, Reflux, mL/hr, Infuseover: 2 minute(s), 0, 08/08/22::00 EDT promethazine, Start: 08/08/22:: EDT, Dose = 12.5 mg, = 1 tab(s), Oral, q6h, PRN, Nausea/Vomiting, 08/08/22:: EDT Ambulate Blood Glucose Call Parameter Blood [...] ALANNA SCANLON DO on 08/09/2022 07:30 AM [id number] Note System generated consult secondary to established nephrostomy tube. Appliance intact with dry dressing; draining well. Patient states no issues. Digitally Signed by JAMAL Bach February on 08/09/2022 12:02 PM [facility]ysofklj52-61-5503 Note ORIGINAL EXAMINATION: ULTRASOUND OF THE KIDNEYS [...] Hernandez Rodrigez MD Preliminary Report By: Dora Gennaro Electronically signed By Hernandez Rodrigez MD Dictated Date: 08/09/2022 3:41:45 AM Prelim Date: 08/09/2022 3:48:30 AM Sign Date: 08/09/2022 8:05:44 AM Ordering Provider: [facility]10-07-2022 History and physical note Result type: History and Physical Result date: August 08, 2022 15:00 EDT Result status: Auth (Verified) Result title: History and Physical Performed by: ALANNA SCANLON DO on August 08, 2022 12:25 EDT Verified by: ALANNA SCANLON DO on August 08, 2022 20:00 EDT Encounter info: [id number], [facility], Office, 08/08/2022 - * Final Report [...] days ago. She states that she typically has diarrhea. Currently denies diarrhea or constipation. Passing flatus. [...] 31 [facility]. Originally [...] use. Converses easily. Abdom: Soft, nondistended. +BS [id number]. Tenderness to palpation in the left lower [...] no signs of bleeding from the vagina or the urethra. Deferred catheterization and speculum exam for [...] ALANNA SCANLON DO on 08/09/2022 11:59 AM [facility]yox[facility]bi12-67-2044 Note Date of Service 08/09/2022 Chief Complaint [...] use. Converses easily. Abdom: Soft, nondistended. +BS z0ksmyyeesz Extrem: no edema, no erythema, nontender Weight [...] -2019, Dr. Martin 4. Anxiety - consider social worker masters consult - declined counseling 5. Cervical cancer [...] BID, 08/08/22 17:26:00 EDT famotidine, Start: 08/08/22 17::00 EDT, Dose [...] 2 mL, IV Push, q4h, 0, 08/08/22 17:: EDT oxyCODONE, Start: 08/08/22 17: EDT, Dose = 5 mg, = 1 tab(s), Oral, q4h, PRN, Pain, scale 4-6, 08/08/22 17: EDT oxyCODONE, Start: 08/08/22 17: EDT, Dose = 10 mg, = 2 tab(s), Oral, q4h, PRN, Pain, scale 7-10, 08/08/22: EDT pantoprazole, Start: 08/08/22 17: EDT, Dose = 40 mg, IV Push, qDay, PRN, Reflux, mL/hr, Infuseover: 2 minute(s), 0, 08/08/22 17: EDT promethazine, Start: 08/08/22 17: EDT, Dose = 12.5 mg, = 1 tab(s), Oral, q6h, PRN, Nausea/Vomiting, 08/08/22:: EDT Ambulate Blood Glucose Call Parameter Blood [...] ALANNA SCANLON DO on 08/09/2022 07:30 AM [id number] Note ORIGINAL EXAMINATION: ULTRASOUND OF THE KIDNEYS [...] Sign Date: 08/09/2022 8:05:44 AM Ordering Provider: [facility]10-06-2022 Summary of episode note LALY NAVAS :1990 Visit Date:08/08/2022 Your Visit Summary Your [...] Care Team Attending Physician - BRITTNI LU APRN[facility] Primary Care Physician - FLIP MARTIN MD Vitals Temperature (Oral) 36.6 C Heart Rate 71 Respiratory Rate 18 Blood Pressure 126/87(Left Arm) What to do next Scheduled Follow-Up Appointments Appointment Type When With Where Contact InformationIR Neph Cath-Neph Ureter W/Guide Left 08/15/2022 01:00 PM EDT IR SO OV Follow Up 01/01/2023 11:30 AM FLIP CORRALES MD [facility] [address] [place] [id number] Medications What How Much When Why Instructions [...] - 7.1 10^3/mcL BMP w/ Ionized Calcium ([facility]) (08/08/2022) Glucose Level - 97 [...] to receive it can visit one of [facility] vaccine clinics. There are many vaccine clinic locations within the [facility]. For locations and available times, please visit [email or web address]. It is important to note that some COVID mobile vaccine clinics are held outdoors and may be canceled in rainy orstormy conditions. To learn more about pediatric vaccinations (ages 5-11), we invite you to visit the [facility] webpage. https://www.[facility].org/pages/4588-Ucunw-Ygccbjhzujv-Chikpuabuw-Zhjvx-Ftb stions.htmlTo learn more about the COVID-19 vaccine, we invite you to visit the [facility] website for a list of frequently asked questions. [email or web address]/[email or web address]-[email or web address] _Asked-Questions.pdf [facility] Patient Portal Access Instructions: Stay connected with your healthcare team and access your personal medical information anytime with the [facility] Patient Portal.If you would like a full copy of your medical records, please contact the [facility] Records Department, Friday through Friday between 8a.m. and 4:30p.m. Please follow the directions below to access the portal: 1.Access the email account you provided upon registration to the hospital.2.Look for an invitation email from [facility].3.Open the email and access the invitation link: Accept Invitation to [facility]4.Fill in the required quintero to create your [...] you will allow to register on the [facility] Patient Portal for access to your information. You can also access the [employer] Patient Portal on the [employer] joya. Simply click on Health Records under [employer] Of [employer] and then click on the [facility] logo. [...] Call your local pharmacy or go to http://bit.ly/3C9Ov1y to find one close to you.3.Make use of household items: Use cat litter or old coffee grounds to dispose medications if other options arenot available. Mix your drugs with these household products, seal them in an airtight container andthrow it into the garbage. Call [facility]: [phone] to be sure your drugs can be [...] aware that I should contact my doctor. Patient/[employer] Signature: Date/Time: Relationship to Patient: Witness Name/Signature: Date/Time: [facility]juvsmym79-82-3711 Note* JAMAL Lindsey: SIGN, AUTHOR, PERFORM Event Display: IR Procedure Record Authored Date: [id number] IR Procedure Record Summary Primary Physician: Finalized Date/Time: 07/04/22 13:57:26 Pt. Name: LALY NAVAS /Sex: 1990 Female Med Rec #: [id number] Physician: Financial #: [id number] Pt. Type: O Room/Bed: / Admit/Disch: 07/04/22 [...] EBL 0 mL Last Modified By: Sam Juniorhy Alice 07/04/22 12:57:11 Radiology Procedure Details - IR [...] 5, Gauze Technologist Notes 8.5F x 26cm Douds sponge 4 X 4 Nephroureterostomy Stent lot#[id number] LT Renal Last Modified By: JAMAL Lindsey 07/04/22 13:56:46 General Case Data - IR Entry 1 Case Information Room IR 18 Case Level IR Level 2 Wound Class None Specialty SN Radiology Procedure ASA Class None Diagnosis Preop Diagnosis cerival cancer Postop Same As Preop Yes Postop Diagnosis cerival cancer Last Modified By: Sandi Sam Fortune Alice 07/04/22 12:56:49 Medication Administration- IR Entry 1 [...] 12:47:00 Last Modified By: Sam Junior Devika Alice 07/04/22 12:51:46 Immediate Post Procedure Note - IR Entry 1 Immediate Post Yes Procedure Note displayed for Physician to review Closure Technique Closure Technique Other than Primary Last Modified By: Sam Juniorhy Alice 07/04/22 12:49:27 Immediate Post Procedure Note - [...] SN Last Modified By: Sam Junior Devika Alice 07/04/22 12:54:50 Skin Prep- IR Entry 1 [...] Yes Checked Last Modified By: Sam Junior Devika Alice 07/04/22 12:55:41 Radiology Procedure Plan - IR [...] Radiology - Action Plan Outcomes Met? 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 Physical Exam Vitals: Qpmoufpxtsi57.7 (10:37) Systolic Blood PressureNo result Diastolic Blood PressureNo result Pulse88 (10:37) PpF121 (10:37) Respiratory Rate18 (10:37) General: Alert, cooperative. [...] Date:01/01/2023 11:30:00 AM Scheduled Provider:FLIP MARTIN MD Location:[facility] Appointment Type:SO OV Follow Up Future [...] IR Neph Cath-Neph Ureter W/Guide Left 06/02/23 [facility] 09-01-2022 Note IR Procedure Record Summary Primary Physician: Finalized Date/Time: 07/04/22 13:57:26 Pt. Name: LALY NAVAS/Sex: 1990 Female Med Rec #: [id number] Physician: Financial #: [id number] Pt. Type: O Room/Bed: / Admit/Disch: 07/04/22 10:21:00 - Institution: Allergies identified in patient's electronic medical record at time of printing on 07/04/22 Entry 1 Entry 2 Substance codeine penicillin Reaction Type Allergy Allergy Last Modified By: Cesar Hyman RN, JAMAL Caceres 02/03/21 04/12/20 15:04:17 17:13:24 Case Attendance- IR Entry 1 Entry 2 Entry 3 Case Attendee VIRAL MANUEL MD, Terra L Rad Patton, RN Gail Oglesby Role Performed Radiologist Procedure Scrub Technologist Procedure Nurse Details Time In 07/04/22 12:25:00 07/04/22 12:15:00 07/04/22 12:15:00 Time Out 07/04/22 12:47:00 07/04/22 13:00:00 07/04/22 13:00:00 Procedure/Preference IR Neph Cath-Neph IR Neph Cath-Neph IR Neph Cath-Neph Card Ureter W/Guide Left SN Ureter W/Guide Left SN Ureter W/Guide Left SN Last Modified By: Sandi Jet Engine MechanicMendel Junior, Jet Engine Mechanic Devika Junior, Jet Engine Mechanic Devika Jenkins 07/04/22 12:51:23 A 07/04/22 12:52:44 A 07/04/22 [...] 5, Gauze Technologist Notes 8.5F x 26cm Douds sponge 4 X 4 Nephroureterostomy Stent lot#[id number] LT Renal Last Modified By: JAMAL Lindseyh Alan 07/04/22 13:56:46 General Case Data - IR [...] Reviewed Other With Last Modified By: Sam Juniorhy Alice 07/04/22 12:49:35 Radiology Protocols/Time Out- IR Entry [...] and César Oglesby RN results are properly GailSandi Whiting Rad labeled and Tech Devika A appropriately displayed, Double verification of sterility indicators complete Instrument Sterility Procedure IR Neph Cath-Neph Ureter W/Guide Left SN Last Modified By: Sam Junior Devika A 07/04/22 12:54:50 Skin Prep- IR Entry 1 Procedure IR Neph Cath-Neph Ureter W/Guide Left SN Skin Prep Prep Area Back Side Left By Magalysbamhaja Patti Boyce Sam Prep Agents Betadine Solution Tech Hair Removal Method N/A Last Modified By: Sam Junior Devika A 07/04/22 12:55:26 Patient Positioning- IR Entry 1 Procedure IR Neph Cath-Neph Body Position OP Prone Ureter W/Guide Left SN Feet Uncrossed? Yes Pressure Points Yes Checked Last Modified By: Sam Junior Devika A 07/04/22 12:55:41 Radiology Procedure Plan [...] Radiology - Action Plan Outcomes Met? 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 Upzl-aaf-tirffvm pain medication should be used for pain [...] instruction below: 8:00 am- 5:00 pm call [phone] After 5:00 pm call [phone] After 24 hours, contact the physician who [...] until you are awake and alert. Take rwln-bgc-mdbiyib and prescription medicines only as told by [...] 08/10/2014 Document Revised: 10/02/2018 Document Reviewed: 02/08/2017 [employer] Patient Education Shelf[employer]. Follow Up Care 05/23/2022 11:54:48 With:FLIP MARTIN MD Address: [phone] When: Unknown Comments:Follow-up as scheduled [facility] 09-01-2022 Note INTERVENTIONAL RADIOLOGY POST PROCEDURE NOTE DATE: 07/04/2022 13:14:19 NAME: LALY NAVAS Pre-Procedure Diagnosis: Left ureteral obstruction. Post Procedure Diagnosis: Same. Enrolled Nurse: Dr. Viral Manuel Procedure: Left nephroureteral catheter exchange. Anesthesia: Procedural sedation. Findings: Success. Estimated Blood Loss: Minimal (Less Than 10 mL). Specimen: None. Complications: None. Full report with procedural details to follow and will become available under the Radiology tab of Results Review. Please contact for any questions or concerns. Viral Manuel MD Interventional Radiology Pager: [phone] Digitally Signed by VIRAL MANUEL MD on 07/04/2022 01:14 PM [facility]dphghhi61-14-9336 Summary of episode note Discharge Instructions Thank you for allowing [facility] to assist you with your healthcare needs. The following is importantdischarge information regarding your hospital visit. Your Care Team FLIP MARTIN MD What to do next Scheduled Follow-Up Appointments Appointment Type When With Where Contact InformationSO OV Follow Up 01/01/2023 11:30 AM FLIP CORRALES MD Gynecologic Oncology Follow Up Appointments Follow Up with FLIP MARTIN MD When Why: Follow-up as scheduled Where: [phone] Allergies codeine penicillin Medications Please ask your [...] providers or retail pharmacies. Education Materials [facility] Nephrostomy Tube Insertion Discharge Instructions Interventional Radiology [facility] [address] [place] [address] The procedure that you had done today [...] mayexperience the feeling of needing to urinate. Isnb-mzt-fawmukn pain medication should be used for pain [...] instruction below: 8:00 am- 5:00 pm call [phone] After 5:00 pm call [phone] After 24 hours, contact the physician who [...] until you are awake and alert. Take rbbx-zta-ynpfdyj and prescription medicines only as told by [...] 08/10/2014 Document Revised: 10/02/2018 Document Reviewed: 02/08/2017 [employer] Patient Education 2020 [employer]. Additional Information VACCINATE! IT SAVES LIVES! Members of the community who have not yet received the COVID-19 vaccine and would like to receive it can visit one of [facility] vaccine clinics. There are many vaccine clinic locations within the [facility]. For locations and available times, please visit [email or web address] It is important to note that some COVID mobile vaccine clinics are held outdoors and may be canceled in rainy or stormy conditions. To learn more about pediatric vaccinations (ages 5-11), we invite you to visit the [facility] webpage. https://www.[facility].org/pages/4547-Jiwgn-Osqswofjtwq-Vkpoxduoll-Ttmgm-Uup stions.htmlTo learn more about the COVID-19 vaccine, we invite you to visit the [facility] website for a list of frequently asked questions. [email or web address]/[email or web address]-[email or web address] _[email or web address]-Questions.pdf [facility] Patient Portal Access Instructions: Stay connected with your healthcare team and access your personal medical information anytime with the [employer] Patient Portal.If you would like a full copy of your medical records, please contact the [facility] Records Department, Friday through Friday between 8a.m. and 4:30p.m. Please follow the directions below to access the portal: 1.Access the email account you provided upon registration to the [facility].2.Look for an invitation email from [facility].3.Open the email and access the invitation link: Accept Invitation to [employer]4.Fill in the required quintero to create your account. Sign into www.[employer] with your username and password that you [...] you will allow to register on the [employer] Patient Portal for access to your information. You can also access the [employer] Patient Portal on the GiftRocket joya. Simply click on Health Records under [employer] Of TV and then click on the [employer] logo. HOW TO SAFELY DISPOSE OF PRESCRIPTION [...] Call your local pharmacy or go to [email or web address] to find one close to you.3.Make use of household items: Use cat litter or old coffee grounds to dispose medications if other options arenot available. Mix your drugs with these household products, seal them in an airtight container andthrow it into the garbage. Call [facility]: [phone] to be sure your drugs can be [...] aware that I should contact my doctor. Patient/[employer] Signature: Date/Time: Relationship to Patient: Witness Name/Signature: Date/Time: [facility]erfwjxn42-11-2248 History and physical note Interventional Radiology Focused [...] Ready to change: Yes. Physical Exam Vitals: Hnzoddxryzp45.7 (10:37) Systolic Blood PressureNo result Diastolic Blood PressureNo result Pulse88 (10:37) YiD139 (10:37) Respiratory Rate18 (10:37) General: Alert, cooperative. [...] VIRAL MANUEL MD on 07/04/2022 01:35 PM [facility]evrvyzh80-75-8357 Hospital Discharge instructions Patient Education 04/19/2022 16:08:04 [...] recently been a patient in a hospital, fdc, or another care facility. Have another illness [...] soap and water or an alcohol-based hand lump machine operator before they enter your roomand before they [...] soap and water or an alcohol-based hand lump machine operator before they enter your room and before they leave your room. Taking antibiotics exactly as prescribed by your health care provider. Washing your hands with soap and water or an alcohol-based hand lump machine operator after: ?Using the bathroom. ?Touching or coming [...] soap and water or an alcohol-based hand lump machine operator, especially after using the bathroom. This information is not intended to replace advice given to you by your health care provider. Make sure you discuss any questions you have with your health care provider. Document Released: 11/22/2017 Document Revised: 10/02/2018 Document Reviewed: 11/22/2017 [employer] Patient Education 2020 [employer]ule. Follow Up Care 04/14/2022 22:01:45 With:A referral has been made to [facility] for additional resources. Address: When: Unknown With:MARGOTH RUVALCABA BA, MD, Infectious Disease, Infectious Disease Group Address[facility] [place] [address] [place] [address]- When: Unknown Comments:Please call for a follow up appointment within 2 weeks With:[facility] - [phone] Address: When: Unknown With:[facility] - [phone]. Please go to [place] for labs to be drawn and Port dressing change. APPT scheduled: SUNDAY 04/22 @ 11:00 AM. (Main entrance; Registration on left) Address: When: Unknown With:FLIP MARTIN MD Address: [address] [place] [address] [phone] When:05/30/2022 14:50:00 [facility] 06-13-2022 Evaluation + Plan noteExtracted from: Title:History [...] tract infections. A UA was collected at [address] [place] [address] and was positive for nitrates. Patient has been and remains afebrile, WBC 11.0, patient was previously on ciprofloxacin and was transitioned to Bactrim today [facility] however did not take any of this medication yet, she received Rocephin at [facility] and we will switch her to meropenem due to previous sensitivities. Patient has left nephrostomy tube with clear yellow urine. She states that she emptied her nephrostomy tube for 600 cc of clear yellow urine today. A CT scan was obtained to [facility] which showed slightly dilated left ureter and [...] hrs)__ Last Charted Minimum Maximum Temp 36.7(APR 15 04:20) 36.7(APR 15:20) 36.8(APR 14:) Resp Rate 18(APR 15:20) 18(APR 14 22:09) 18(APR 14:) SBP 100(APR 15 04:20) 100(APR 15 04:20) H 149(APR 14:09) DBP 69(APR 15 04:20) 69(APR 15 04:20) H 95(APR 14:09) Physical exam: General Appearance: resting on room [...] this - Awaiting urine cultures collected at [facility], will follow up on throughout the week [...] urine culture and sensitivities. Addendum by BRITTNI LU PRN-SWING FRAME GRINDER OPERATOR on April 15, 2022 11:03:55 EDT This [...] control. I answered all of her questions. FLPI MARTIN MD, FACOG Future Appointments Appointment Date:05/23/2022 11:00:00 AM Scheduled Provider: Location:IR Appointment Type:IR Neph Cath-Neph Ureter W/Guide Left Appointment Date:05/30/2022 02:50:00 PM Scheduled Provider:FLPI MARTIN MD Location:[facility] Appointment Type:SO OV Follow Up Future Scheduled Tests Radiology* IR Neph Cath-Neph Ureter W/Guide Left 05/23/22 [facility] 06-09-2022 Hospital Discharge instructions Patient Education 04/11/2022 14:21:02 Radiology- Procedure/Biopsy 02/16/2020 (CUSTOM) [facility] Radiology Procedure/Biopsy Discharge Instructions Interventional Radiology [facility] [address] [address] Today, you had a . This procedure/biopsy [...] 1 to 2 days following the procedure. Wumr-oza-jheewqv pain medication should be used for pain [...] instruction below: 8:00 am- 5:00 pm call [phone] After 5:00 pm call [phone] After 24 hours, contact the physician who [...] with primary care provider Address:Unknown When: Unknown [facility] 05-24-2022 Evaluation + Plan noteExtracted from: Title:IR [...] Ready to change: Yes. Physical Exam Vitals: Skxlfotxmka37.7 (11:47) Systolic Blood PressureNo result Diastolic Blood PressureNo result Pulse76 (11:47) WbF166 (11:47) Respiratory Rate18 (11:47) General: Alert, cooperative. Heart: RRR Lungs: CTA bilaterally The remainder of the physical exam is noncontributory. Labs Anticoagulation Labs No qualifying data available. No qualifying data available. Assessment/Treatment Plan Image guided left nephroureteral tube exchange Post Procedure Discharge Plan Patient to be discharged home. Fani Beckman PA-C Interventional Radiology Pager: [phone] IR dept: x [phone] Available on [employer] Future Appointments Appointment Date:05/30/2022 02:50:00 PM Scheduled Provider:LFIP MARTIN MD Location:[facility] Appointment Type:SO Follow Up [facility] 02-18-2022 Evaluation + Plan noteExtracted from: Title:IR pre-procedure H&P - LEFT nephrostomy tube exchange Author:FANI BECKMAN PA-C Date:12/21/21 Interventional Radiology Focused Preprocedure History/Physical Reason for Visit Nephrostomy in Place, Due for Exchange History of Presenting Illness/Planned IR Procedure 30 y.o female with history of cervical cancer and hydronephrosis presents for routine LEFT nephrostomy tube exchange. Patient had ureteral stent placed in 06/2021 at [facility] and has not had a [...] Ready to change: Yes. Physical Exam Vitals: Wpvqbjpfkae95.7 (10:38) Systolic Blood PressureNo result Diastolic Blood PressureNo result Pulse81 (10:38) VvW694 (10:38) Respiratory Rate16 (10:38) General: Alert, cooperative. : + LEFT nephrostomy tube The remainder of the physical exam is noncontributory. Labs Anticoagulation Labs No qualifying data available. No qualifying data available. Assessment/Treatment Plan Image guided LEFT nephrostomy tube change Post Procedure Discharge Plan Patient to be discharged home. Fani Beckman PA-C Interventional Radiology Pager: [phone] IR dept: x [phone] Available on [employer] Future Appointments Appointment Date:01/29/2022 11:00:00 AM Scheduled Provider: Location:IR Appointment Type:IR Neph Cath-Neph Ureter W/Guide Left Future Scheduled Tests Laboratory* Urinalysis 12/22/20 * Urine Culture 12/22/20 Radiology* IR Neph Cath-Neph Ureter W/Guide Left 01/29/22 * US Renal 12/27/20 [facility] 02-18-2022 Hospital Discharge instructions Patient Education 12/21/2021 11:35:22 Radiology- Procedure/Biopsy 02/16/2020 (CUSTOM) [place] Radiology Procedure/Biopsy Discharge Instructions Interventional Radiology [facility] [address] [address] Today, you had a Left Nephrostomy Tube [...] 1 to 2 days following the procedure. Rqoi-ohw-khjpuhi pain medication should be used for pain [...] instruction below: 8:00 am- 5:00 pm call [phone] After 5:00 pm call [phone] After 24 hours, contact the physician who [...] with primary care provider Address:Unknown When: Unknown [facility] 09-11-2021 NoteSend Summary: Discharge Summary Providers: Provider [...] at Discharge: .Home Vital Signs: T PRBPSpO2 [id number]/27061% Date/Time07/14 8: 8: 8: 8: 8:43 Range(36.8C [...] Follow up Scheduled Date/Time: 09-Aug-2021 11:10 Location: [facility], [address] [place] [address], [address], [place] [address] Discharge Medications: Home Medication sulfamethoxazole-trimethoprim 800 mg-160 mg oral tablet - 1 tab(s) orally every 12 hours PRN Medication LORazepam 1 mg oral tablet - 1 tab(s) orally 3 times a day, As Needed Electronic Signatures: Shira Teran) (Signed 19-Jul-2021 12:33) Authored: Send Summary, Summary Content, Ongoing Care, Note Completion Last Updated: 19-Jul-2021 12:33 by Shira Teran)[facility]09-09-2021 NoteHistory of Present Illness: HPI: LALY NAVAS [...] As Needed. Objective: Objective Information: T PRBPSpO2 [id number]/00201% Date/Time07/12 0: 0: 0: 0: 0:17 Range(36.4C [...] Reference Range: STRAW,YELLOW Appearance, Urine HAZY Specific [place], Urine 1.010 pH, Urine 6.0 Protein, Urine 100 (2+) A Glucose, Urine NEGATIVE Blood, Urine SMALL (1+) A Ketones, Urine NEGATIVE Bilirubin, Urine NEGATIVE Urobilinogen, Urine <2.0 Nitrite, Urine POSITIVE A Leukocyte Esterase, Urine LARGE (3+) A Urinalysis, Microscopic 11-Jul-2021 15:06:00 ResultValue White Cells >182 A WBC Clumps OCC Red Blood Cells 9 A Bacteria, Urine 1+ A Mucous 4+ Coronavirus 2019 by PCR 11-Jul-2021 15:02:00 ResultValue Fluid Source Nasal, Nasopharyngeal Coronavirus 2019,PCR NOT DETECTED Reference Range: Not Detected . This test has received FDA Emergency Use Authorization (EUA) and has been verified by [facility] ([facility]). This test is only authorized for the duration of time korin Date of Symptom Onset [id number] Culture, Blood Trending View [id number] 14:43:00 11-Jul-2021 14:42:00 Culture, BloodNEGATIVE TO DATE, [...] Lymphocyte Count 2.39 Monocyt (more content not included)...[facility]09-09-2021 Hospital Discharge instructions* Vascular Access Port: [id number] Access Port: right chestVascular Access Port: top entry * Activity:activity as tolerated. * Follow Up Appointment 1:Physician/Dept/Service: Dr Polo Harden for Referral: Follow upScheduled Date/Time: 09-Aug-2021 11:10Location: [facility], [address] [place] [address], [address], [place], [place] [address]Phone Number: [phone] [facility]08-30-2021 NotePre-procedure Verification and Time Out: Pre-Procedure Verification and Time Out: Procedure Locationprocedure area [facility] - Pre-procedure Verificationcompleted TIME OUT - Final Verificationcompleted immediately prior to procedure start DEBRIEFcompleted General Information: Anesthesia Critical Care: Non-Anesthesia Post-Procedure Diagnosis: same Procedure Name: 1- PCN to NU catheter conversion. 2- balloon dilatation of the distal left ureter Findings: grossly normal anatomy Procedure performed by: Dr. Munoz Grading Supervisor(s): Arie Esqueda (resident) Estimated Blood Loss (mL): [...] Completion Last Updated: 02-Jul-2021 15:23 by Rohith Munoz)[facility] Note Date/Time April 09, 2025 2:44a [facility] Medical Records Department [address] [place] [address] Emergency Department Summary 04/09/25 MR#: [id number] Acct: [id number] Name: LALY NAVAS Rep #:[id number] : 1990 34 From: Jatin Garcia MD PCP: OLE PACE Status:REG ER Location: ED HPI History of Present Illness Chief Complaint: Flank Pain Informant: patient Narrative Narrative: 34-year-old female states she is having pain in her left flank, less on her backmore in her side in her left lower quadrant, that she has been having for the past 2 weeks consistent with a kidney stone that has been known and followed, and she is here for pain control. She is in pain management, taking oxycodone twice a day which she has been doing but the pain is [id number] and she is feeling very nauseated and does not want to waste her pain management prescription by vomiting it up. She denies any fevers or chills. No dysuria orhematuria. She has been on antibiotics for several weeks, currently on Bactrim,and states that she was admitted to [facility] where her oncologist and urologist are, she was there yesterday and then discharged today because she states her urologist who had admitted her, decided to drop her as a patient. The patient states this was because she missed a renal scan that she was unaware of. She states that the urologist was preparing to remove the kidney stone because of pain reasons. 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 She has known about those issues for years. [facility] Medical History Nephrostomy present Kidney failure Kidney stone Cervical cancer Home Medications ?Medication ?Instructions ?Recorded ?Last Taken ?Type escitalopram oxalate 20 mg tablet 20 mg PO DAILY 04/09 Unknown History (Lexapro) lorazepam 1 mg tablet (Ativan) 1 mg PO Q8H PRN anxiety 04/09/25 Unknown History ondansetron HCl 4 mg tablet 4 mg PO Q6H PRN nausea and vomiting 04/09/25 Unknown History oxycodone 5 mg tablet 10 mg PO Q6H PRN pain Unknown History sulfamethoxazole 800 1 tab PO BID 04/09/25 Unknow n History mg-trimethoprim 160 mg tablet (Bactrim DS) Allergy/AdvReac Type Severity Reaction Status Date / Time haloperidol (From Haldol) Allergy Angioedema Verified 04/09/25 00:21 Penicillins (PCN) Allergy Hives Verified 04/09/25 00:21 Social History Smoking Status: Current every day smoker tobacco type: cigarettes and e- cigarettes ROS ROS ED Constitutional Constitutional ED: Denies chills or fever(s) Eyes Eyes: Denies change in vision or diplopia ENT ENT ED: Denies rhinorrhea or sore throat Cardiovascular Cardiovascular: Denies chest pain or palpitations Respiratory/Chest Respiratory/Chest: Denies cough or dyspnea Gastrointestinal Gastrointestinal: Reports abdominal pain; Denies diarrhea, nausea or vomiting Genitourinary Genitourinary ED: Reports flank pain; Denies dysuria or hematuria Musculoskeletal Musculoskeletal: Denies back pain or neck pain Integumentary Denies abscess or rash Neurologic Neurologic: Denies headache(s), paresthesias or weakness Psychiatric Psychiatric: Denies anxiety or suicidal thoughts EXAM Physical Exam Const Vital Signs: 04/09/25 00:20 04/09/25 01:20 04/09/25 02:00 Temperature 98.6 F Temperature Source Oral Pulse Rate 103 H 89 69 Respiratory Rate 18 16 16 Blood Pressure 115/79 118/71 107/77 Blood Pressure Mean 91 86 87 Pulse Ox 99 98 99 Oxygen Delivery Method Room Air Room Air Positive well nourished and well developed Constitutional Narrative: Very well-appearing in no distress, ambulatory without limitation General Appearance ED: well developed and NAD HEENT Reports moist mucous membranes normocephalic and atraumatic Eyes PERRL and EOMs intact bilaterally Neck full ROM and supple Resp normal respiratory effort and clear to auscultation bilaterally Cardio regular rate, regular rhythm and no murmurs GI non-distended GI Narrative: Tender left lower quadrant no guarding or rebound. Auscultation: normoactive bowel sounds Palpation: soft Back/Spine no CVA tenderness Back/Spine Narrative: Left nephrostomy in place, no active discharge or signs of infection or tenderness. General Back: other FROM Extremity normal to inspection General Extremety ED: Negative for edema, pulses abnormal or tenderness General Extremity: Negative for edema or pulses abnormal Neuro oriented x3, CN's II-XII intact bilaterally and no sensory deficits noted Sensorium / Orientation: awake and alert Motor Exam: strength 5/5 throughout Psych mental status grossly normal Skin no rashes or lesions noted and no wounds MDM MDM MDM Narrative Medical decision making narrative: Labs and urinalysis are normal. No indication of infection. In the meantime she was given a dose of morphine and Zofran for her symptoms. She said it did not help and that her abdomen is hurting worse although she appears well and is not tachycardic with a heart rate of 69 and a blood pressure 107/77. Given the timing of all of this I certainly do not think she needs to be admitted for any acute reason. She is here at 1-3 a.m., and although I think reasonable to referher to urology, I do not think she needs to see them emergently right now. She is in agreement and is gracious about more pain control and referral. Lab Data Attestation: I reviewed the patient's lab results. Labs: Laboratory Results - last 24 hr 04/09/25 04/09/25 00:38 01:02 WBC 8.7 RBC 3.81 L Hgb 12.3 Hct 36.4 L MCV 95.5 MCH 32.3 H MCHC 33.8 RDW Std Deviation 51.2 H RDW Coeff of Bereket 14.6 Plt Count 297 MPV 9.4 Immature Gran % (Auto) 0.300 Neut % (Auto) 54.6 Lymph % (Auto) 32.0 Moca % (Auto) 8.9 Eos % (Auto) 3.2 Baso % (Auto) 1.0 Absolute Neuts (auto) 4.7 Absolute Lymphs (auto) 2.78 Nucleated RBC % 0 Sodium 140 Potassium 3.4 Chloride 106 Carbon Dioxide 19.8 L Anion Gap 14 BUN 9 Creatinine 0.96 Estim Creat Clear Calc 72.90 Est GFR (MDRD) Non-Af 79 BUN/Creatinine Ratio 9.0 L Glucose 120 H Calcium 9.1 Urine Color Straw Urine Clarity Clear Urine pH 6.0 Ur Specific [place] 1.010 Urine Protein Negative Urine Glucose (UA) Normal Urine Ketones Negative Urine Occult Blood Negative Urine Nitrite Negative Urine Bilirubin Negative Urine Urobilinogen Normal Ur Leukocyte Esterase Negative Urine RBC 0 SEEN Urine WBC 0-5 SEEN Ur Squamous Epith Cells 0-5 SEEN Urine Bacteria 0 SEEN Urine Mucus 0 SEEN Discharge Plan Triage Chief Complaint: Flank Pain ED Provider: Jatin Garcia Dx/Rx/DC Orders Clinical Impression: Acute left flank pain, Ureteral obstruction, left, Nephrostomy status Instructions: ED Kidney Stone with Pain Prescriptions: No Action oxycodone 5 mg tablet 10 mg PO Q6H PRN (Reason: pain) lorazepam [Ativan] 1 mg tablet 1 mg PO Q8H PRN (Reason: anxiety) escitalopram oxalate [Lexapro] 20 mg tablet 20 mg PO DAILY ondansetron HCl 4 mg tablet 4 mg PO Q6H PRN (Reason: nausea and vomiting) sulfamethoxazole-trimethoprim [Bactrim DS] 800-160 mg tablet 1 tab PO BID Primary Care Provider: OLE PACE Referrals: Yoseph Botello MD [Med Staff - Active Staff] - Print Language: Mongolian Disposition Disposition: Home, Self Care What to do if you have Problems For any increased pain, shortness of breath, bleeding, nausea or vomiting, chestpain, or any unexpected problems, contact your Primary Care Provider. Call [employer] [facility] ([phone]) or report to the closest Emergency Room. Call 911 if necessary. 04/09/25 0244 <Electronically signed by Jatin Garcia MD> Cosigner Signature (if applicable): CC: OLE SANJEEV ~ Signed [facility] Work Phone: Evaluation + Plan note Future Appointments Appointment Date:11/22/2021 03:40:00 PM Scheduled Provider:FLIP MARTIN MD Location:[facility] Appointment Type:SO OV Follow Up Future Scheduled Tests Laboratory* Urinalysis 12/22/20 * Urine Culture 12/22/20 * Complete Blood Count 08/30/20 * Complete Metabolic Panel 08/30/20 Radiology* XR Abdomen AP 11/09/20 * IR Nephrostomy Tube Change Lt Guide 08/31/20 * US Renal 12/27/20 * IR Nephrostomy Tube Remove Lt Guide 09/06/20 [facility] Evaluation + Plan note Future Appointments Appointment Date:03/26/2022 01:00:00 PM Scheduled Provider: Location:IR Appointment Type:IR Neph Cath-Neph Ureter W/Guide Left Appointment Date:05/30/2022 02:50:00 PM Scheduled Provider:FLIP MARTIN MD Location:[facility] Appointment Type:SO OV Follow Up Future Scheduled Tests Radiology* IR Neph Cath-Neph Ureter W/Guide Left 03/26/22 [facility] Evaluation + Plan note Future Appointments Appointment Date:05/23/2022 11:00:00 AM Scheduled Provider: Location:IR Appointment Type:IR Neph Cath-Neph Ureter W/Guide Left Appointment Date:05/30/2022 02:50:00 PM Scheduled Provider:FLIP MARTIN MD Location:[facility] Appointment Type:SO OV Follow Up Future Scheduled Tests Radiology* IR Neph Cath-Neph Ureter W/Guide Left 05/23/22 [facility] evaluation + Plan note Future Appointments Appointment Date:08/15/2022 01:00:00 PM Scheduled Provider: Location:IR Appointment Type:IR Neph Cath-Neph Ureter W/Guide Left Appointment Date:01/01/2023 11:30:00 AM Scheduled Provider:FLIP MARTIN MD Location:[facility] Appointment Type:SO OV Follow Up Diagnostic [...] IR Neph Cath-Neph Ureter W/Guide Left 08/15/22 [facility] Evaluation + Plan note Future Appointments Appointment Date:10/02/2022 11:00:00 AM Scheduled Provider: Location:IR Appointment Type:IR Neph Cath-Neph Ureter W/Guide Left Appointment Date:01/01/2023 11:30:00 AM Scheduled Provider:FLIP MARTIN MD Location:[facility] Appointment Type:SO OV Follow Up Future [...] IR Neph Cath-Neph Ureter W/Guide Left 10/02/22 [facility] Evaluation + Plan note Future Appointments Appointment Date:10/02/2022 11:00:00 AM Scheduled Provider: Location:IR Appointment Type:IR Neph Cath-Neph Ureter W/Guide Left Appointment Date:01/01/2023 11:30:00 AM Scheduled Provider:FLIP MARTIN MD Location:[facility] Appointment Type:SO OV Follow Up Diagnostic [...] IR Neph Cath-Neph Ureter W/Guide Left 10/02/22 [facility] Evaluation + Plan note Future Appointments Appointment [...] IR Neph Cath-Neph Ureter W/Guide Left 01/07/23 [facility] Evaluation + Plan note Future Appointments Appointment [...] IR Neph Cath-Neph Ureter W/Guide Left 01/07/23 [facility] Evaluation + Plan note Future Appointments Appointment Date:02/20/2023 02:50:00 PM Scheduled Provider:FLIP MARTIN MD Location:[facility] Appointment Type:SO OV Appointment Date:05/12/2023 11:00:00 [...] IR Neph Cath-Neph Ureter W/Guide Left 05/12/23 [facility] Evaluation + Plan note Future Appointments Appointment Date:06/24/2023 11:00:00 AM Scheduled Provider: Location:IR Appointment Type:IR Neph Cath-Neph Ureter W/Guide Left Appointment Date:08/20/2023 03:20:00 PM Scheduled Provider:FLIP MARTIN MD Location:[facility] Appointment Type:SO OV Follow Up Future Scheduled Tests Laboratory* Pathology Nuclear Operations Specialist Request 05/15/23 * Urinalysis 02/14/23 Radiology* IR [...] BD Bone Density DEXA Axial Skeleton 05/15/23 [facility] Evaluation + Plan note Future Appointments Appointment Date:06/30/2023 02:00:00 PM Scheduled Provider: Location:IR Appointment Type:IR Neph Cath-Neph Ureter W/Guide Left Appointment Date:07/30/2023 11:30:00 AM Scheduled Provider:FLIP MARTIN MD Location:[facility] Appointment Type:SO OV Follow Up Future Scheduled Tests Laboratory* Pathology Nuclear Operations Specialist Request 05/15/23 * Urinalysis 02/14/23 Radiology* IR [...] BD Bone Density DEXA Axial Skeleton 05/15/23 [facility] Evaluation + Plan note Future Appointments Appointment Date:07/31/2023 03:00:00 PM Scheduled Provider:OLE PACE MD Location:[facility] Appointment Type:PALL New Patient Appointment Date:09/04/2023 01:00:00 PM Scheduled Provider: Location:IR Appointment Type:IR Nephrostomy Tube Change Lt Guide Appointment Date:10/31/2023 10:00:00 AM Scheduled Provider:BRITTNI LU Location:[facility] Appointment Type:SO OV Follow Up Future Scheduled Tests Laboratory* Pathology Nuclear Operations Specialist Request 05/15/23 * Urinalysis 02/14/23 Radiology* IR [...] IR Nephrostomy Tube Change Lt Guide 06/21/24 [facility] Evaluation + Plan note Future Appointments Appointment Date:09/04/2023 01:00:00 PM Scheduled Provider: Location:IR Appointment Type:IR Nephrostomy Tube Change Lt Guide Appointment Date:09/09/2023 10:30:00 AM Scheduled Provider:OLE PACE MD Location:[facility] Appointment Type:PALL OV Follow Up Appointment Date:10/31/2023 10:00:00 AM Scheduled Provider:BRITTNI LU Location:[facility] Appointment Type:SO OV Follow Up Future Scheduled Tests Laboratory* Pathology Nuclear Operations Specialist Request 05/15/23 * Urinalysis 02/14/23 Radiology* IR [...] IR Nephrostomy Tube Change Lt Guide 06/21/24 [facility] Evaluation + Plan note Future Appointments Appointment Date:10/14/2023 01:00:00 PM Scheduled Provider:OLE PACE MD Location:[facility] Appointment Type:PALL OV Follow Up Appointment Date:10/31/2023 10:00:00 AM Scheduled Provider:BRITTNI LU Location:[facility] Appointment Type:SO OV Follow Up Future Scheduled Tests Laboratory* Urinalysis 02/14/23 Radiology* IR Neph Cath-Neph Ureter W/Guide Left 06/30/23 * IR Nephrostomy Tube Change Lt Guide 09/04/23 [facility] evaluation + Plan note Future Appointments Appointment Date:12/03/2023 11:00:00 AM Scheduled Provider: Location:IR Appointment Type:IR Nephrostomy Exchange Appointment Date:12/08/2023 03:00:00 PM Scheduled Provider:OLE PACE MD Location:[facility] App[facility]ment Type:PALL OV Follow Up Appointment Date:12/08/2023 03:40:00 PM Scheduled Provider:BRITTNI LU Location:[facility] Appointment Type:SO OV Future Scheduled Tests Laboratory* Urinalysis 02/14/23 Radiology* IR Nephrostomy Exchange 12/03/23 * IR Neph Cath-Neph Ureter W/Guide Left 06/30/23 * IR Nephrostomy Tube Change Lt Guide 09/04/23 [facility] evaluation + Plan note Future Appointments Appointment Date:01/06/2024 10:30:00 AM Scheduled Provider:OLE PACE MD Location:[facility] App[facility]ment Type:PALL OV Follow Up Appointment Date:01/14/2024 10:00:00 AM Scheduled Provider: Location:IR Appointment Type:IR Nephrostomy Exchange Appointment Date:04/07/2024 03:20:00 PM Scheduled Provider:BRITTNI LU Location:[facility] Appointment Type:SO OV Follow Up Future Scheduled Tests Laboratory* Pathology Nuclear Operations Specialist Request 12/08/23 * Urinalysis 02/14/23 Radiology* IR Nephrostomy Exchange 01/14/24 * IR Neph Cath-Neph Ureter W/Guide Left 06/30/23 * IR Nephrostomy Tube Change Lt Guide 09/04/23 [facility] evaluation + Plan note Future Appointments Appointment Date:01/14/2024 10:00:00 AM Scheduled Provider: Location:IR Appointment Type:IR Nephrostomy Exchange Appointment Date:02/03/2024 10:30:00 AM Scheduled Provider:OLE PACE MD Location:[facility] Appointment Type:PALL OV Follow Up Appointment Date:04/07/2024 03:20:00 PM Scheduled Provider:BRITTNI LU Location:[facility] Appointment Type:SO OV Follow Up Future Scheduled Tests Laboratory* Urinalysis 02/14/23 Radiology* IR Nephrostomy Exchange 01/14/24 * IR Neph Cath-Neph Ureter W/Guide Left 06/30/23 * IR Nephrostomy Tube Change Lt Guide 09/04/23 [facility] evaluation + Plan note Future Appointments Appointment Date:04/01/2024 11:00:00 AM Scheduled Provider:OLE PACE MD Location:[facility] Appointment Type:PALL OV Follow Up Appointment Date:04/07/2024 03:20:00 PM Scheduled Provider: Location:[facility] Appointment Type:SO OV Follow Up Future Scheduled Tests Laboratory* Clostridium difficile (PCR) 03/04/24 * Ova + Parasite Exam 03/04/24 Radiology* IR Nephrostomy Tube Change Lt Guide 09/04/23 [facility] Evaluation + Plan note Future Appointments Appointment Date:03/14/2025 01:30:00 PM Scheduled Provider:OLE PACE MD Location:[facility] Appointment Type:PALL OV Follow Up Appointment Date:03/30/2025 10:40:00 AM Scheduled Provider:GONZALEZ SANDERS MD Location:UROLOGY Appointment Type:URO OV Appointment Date:04/13/2025 01:00:00 PM Scheduled Provider: Location:IR Appointment Type:IR Nephrostomy Exchange Appointment Date:05/18/2025 11:20:00 AM Scheduled Provider: Location:[facility] Appointment Type:SO OV Follow Up Future Scheduled Tests Laboratory* hCG, quantitative (AH/AM Only) 11/15/24 Radiology* IR Nephrostomy Exchange 04/13/25 * IR Nephrostomy Exchange 12/30/24 * CT Renal 03/08/25 * NM Kidney Diuretic 03/08/25 [facility] evaluation + Plan note Future Appointments Appointment Date:03/30/2025 10:40:00 AM Scheduled Provider:GONZALEZ SANDERS MD Location:UROLOGY Appointment Type:URO OV Appointment Date:03/30/2025 11:30:00 AM Scheduled Provider:OLE PACE MD Location:[facility] Appointment Type:PALL OV Follow Up Appointment Date:04/13/2025 01:00:00 PM Scheduled Provider: Location:IR Appointment Type:IR Nephrostomy Exchange Appointment Date:05/18/2025 11:20:00 AM Scheduled Provider: Location:[facility] Appointment Type:SO OV Follow Up Future Scheduled Tests Laboratory* hCG, quantitative (AH/AM Only) 11/15/24 Radiology* IR Nephrostomy Exchange 04/13/25 * IR Nephrostomy Exchange 12/30/24 * CT Renal 03/08/25 * NM Kidney Diuretic 03/08/25 [facility] evaluation + Plan note Future Appointments Appointment Date:04/13/2025 01:00:00 PM Scheduled Provider: Location:IR Appointment Type:IR Nephrostomy Exchange Appointment Date:05/18/2025 11:20:00 AM Scheduled Provider: Location:[facility] Appointment Type:SO OV Follow Up Future Scheduled Tests Laboratory* hCG, quantitative (AH/AM Only) 11/15/24 Radiology* IR Nephrostomy Exchange 04/13/25 * IR Nephrostomy Exchange 12/30/24 * CT Renal 03/08/25 * NM Kidney Diuretic 03/08/25 * NM Kidney Diuretic 03/30/25 [facility] evaluation + Plan note Future Appointments Appointment Date:04/12/2025 08:30:00 AM Scheduled Provider: Location:XRAY Appointment Type:NM Kidney Diuretic Appointment Date:04/13/2025 01:00:00 PM Scheduled Provider: Location:IR Appointment Type:IR Nephrostomy Exchange Appointment Date:05/11/2025 11:00:00 AM Scheduled Provider:OLE PACE MD Location:[facility] Appointment Type:PALL OV Follow Up Appointment Date:05/18/2025 11:20:00 AM Scheduled Provider: Location:[facility] Appointment Type:SO OV Follow Up Future Scheduled Tests Laboratory* hCG, quantitative (AH/AM Only) 11/15/24 Radiology* IR Nephrostomy Exchange 04/13/25 * IR Nephrostomy Exchange 12/30/24 * CT Renal 03/08/25 * NM Kidney Diuretic 03/08/25 * NM Kidney Diuretic 04/12/25 [facility] evaluation + Plan note Future Appointments Appointment Date:05/11/2025 11:00:00 AM Scheduled Provider:OLE PACE MD Location:[facility] Appointment Type:PALL OV Follow Up Appointment Date:05/18/2025 11:20:00 AM Scheduled Provider: Location:[facility] Appointment Type:SO OV Follow Up Future Scheduled Tests Laboratory* hCG, quantitative (AH/AM Only) 11/15/24 Radiology* IR Nephrostomy Exchange 12/30/24 * CT Renal 03/08/25 * NM Kidney Diuretic 03/08/25 * NM Kidney Diuretic 04/12/25 [facility] evaluation + Plan note Future Appointments Appointment Date:05/11/2025 11:00:00 AM Scheduled Provider:OLE PACE MD Location:[facility] Appointment Type:PALL OV Follow Up Appointment Date:05/18/2025 11:20:00 AM Scheduled Provider: Location:[facility] Appointment Type:SO OV Follow Up Appointment Date:05/19/2025 01:00:00 PM Scheduled Provider: Location:IR Appointment Type:IR Nephrostomy Exchange Future Scheduled Tests Laboratory* hCG, quantitative (AH/AM Only) 11/15/24 Radiology* IR Nephrostomy Exchange 05/19/25 * IR Nephrostomy Exchange 12/30/24 * CT Renal 03/08/25 * NM Kidney Diuretic 03/08/25 * NM Kidney Diuretic 04/12/25 [facility] evaluation + Plan note Future Appointments Appointment Date:06/08/2025 11:30:00 AM Scheduled Provider:OLE PACE MD Location:[facility] Appointment Type:PALL OV Follow Up Appointment Date:06/29/2025 08:00:00 AM Scheduled Provider: Location:IR Appointment Type:IR Nephrostomy Exchange Future Scheduled Tests Laboratory* hCG, quantitative (AH/AM Only) 11/15/24 Radiology* IR Nephrostomy Exchange 06/29/25 * IR Nephrostomy Exchange 12/30/24 * CT Renal 03/08/25 * NM Kidney Diuretic 03/08/25 * NM Kidney Diuretic 04/12/25 [facility] Evaluation note* Respiratory/Thorax: Patent airways, CTAB, normal [...] senses, motor, response and reflexes, normal strength [facility]: Hospital course Narrative No data available for this section [facility] Discharge instructions No data available for this section [facility] Progress note No data available for this section [facility] Reason for referral (narrative)No reason for referral information [facility]WW[facility] Work Phone: Summary note* Cierra Adamson N: PERFORM Event Display: Patient Summary Documents Authored Date: [id number] [facility] Summary Purpose Family History No Family History [...] this section No Family History Records Found Advance Directives No Advanced Directives Records Found Advance Directive Response Recorded Date/ Time Do you have a Healthcare Power of Loss Prevention Analyst? No April 09, 2025 12:20am Chief Complaint and Reason for Visit Chief Complaint Admit Date KIDNEY STONES April 09, 2025 12:20 am Additional Source Comments INFORMATION SOURCE (unrecogn ized section and content) DATE CREATED AUTHOR 05/23/2020 [facility] DATE CREATED AUTHOR AUTHOR'S ORGANIZ ATION 10/25/2020 [facility] DATE CREATED AUTHOR AUTHOR'S ORGANIZ ATION 08/11/2021 [facility] DATE CREATED AUTHOR AUTHOR'S ORGANIZ ATION 08/29/2021 [facility] DATE CREATED AUTHOR AUTHOR'S ORGANIZ ATION 06/25/2024 [facility] ([place]) DATE CREATED AUTHOR AUTHOR'S ORGANIZ ATION 04/18/2025 [facility] DATE CREATED AUTHOR AUTHOR'S ORGANIZ ATION 05/21/2025 [facility] DATE CREATED AUTHOR AUTHOR'S ORGANIZ ATION 05/29/2025 [facility] DATE CREATED AUTHOR AUTHOR'S ORGANIZ ATION 05/31/2025 [facility] <item> Privacy Markings (unrecogniz ed section and content) Section Author: Candida Purdy PROHIBITION ON REDISCLOSURE OF CONFIDENTIAL INFORMATION This notice accompanies a disclosure of information concerning a client made to you with the consent of such client. Care Team (unrecognized sect ion and content) Team Status: Active Member Role Status Dates OLE PACE Primary Care Provider Active Team Status: Inactive Member Role Status Dates Dr. 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 Relationship Specialty Start Date End Date Ben Fonseca MD [address] [place] [address] [address] [place] [address] Surgeon Urology 05/17/25 Care Team (unrecognized sect ion and content) Care Team Personnel Name: Pari Brice Position: Quality Review Member Role: Block Operator Name: FLIP MARTIN MD Position: P4 Oncology Provider Member Role: Primary Care Physician Address: Address: [address] [place] [address] [address] [place] [address] Name: Maryann Mae RN Position: [facility] Member Role: Palliative Care Team Related Persons Name: HAM GRISSOM Name: JESSICA NAVAS Name: ZANDRA ALCANTARA Name: AUSTIN HADDAD Care Team Personnel Name: Pari Brice Position: Quality Review Member Role: Block Operator Name: FLIP MARTIN MD Position: P4 Oncology Provider Med Service: COMMERCIAL INSULATOR-ONC Infusion Therapy Member Role: Primary Care Physician Address: Address: [address] [place] [address] Gynecologic Oncology [place], [place] [address] Name: FLIP MARTIN MD Position: P4 Oncology Provider Med Service: COMMERCIAL INSULATOR-ONC Infusion Therapy Member Role: Primary Care Physician Address: Address: [address] [place] [address] [facility] On[address] Name: Maryann Mae RN Position: [facility] Med Service: Palliative Care Member Role: Palliative Care Team Related Persons Name: HAM GRISSOM Name: JESSICA NAVAS Name: ZANDRA ALCANTARA Name: AUSTIN HADDAD Care Team Personnel Name: Pari Brice Position: Quality Review Member Role: Block Operator Name: FLIP MARTIN MD Position: Oncology Provider Med Service: COMMERCIAL INSULATOR-ONC Infusion Therapy Member Role: Primary Care Physician Address: Address: [address] [place] [address] [facility] Name: FLIP MARTIN MD Position: Oncology Provider Med Service: COMMERCIAL INSULATOR-ONC Infusion Therapy Member Role: Primary Care Physician Address: Address: [address] [place] [address] [facility] Name: Maryann Mae RN Position: [facility] Med Service: Palliative Care Member Role: Palliative Care Team Related Persons Name: HAM GRISSOM Name: JESSICA NAVAS Name: ZANDRA ALCANTARA Name: AUSTIN HADDAD Care Team Personnel Name: Pari Brice Position: Quality Review Member Role: Block Operator Name: FLIP MARTIN MD Position: P4 Oncology Provider Member Role: Primary Care Physician Address: Address: [address] [place] [address] [facility] On[address] Name: Maryann Mae RN Position: [facility] Member Role: Palliative Care Team Related Persons Name: HAM GRISSOM Name: JESSICA NAVAS Name: ZANDRA ALCANTARA Name: AUSTIN HADDAD Care Team Personnel Name: FLIP MARTIN MD Position: Oncology Provider Member Role: Primary Care Physician Address: Address: [address] [place] [address] [facility] On[address] Name: Maryann Mae RN Position: [facility] Member Role: Palliative Care Team Related Persons Name: HAM GRISSOM Name: JESSICA NAVAS Name: ZANDRA ALCANTARA Name: HADDAD, [place] Care Team Personnel Name: Pari Brice Position: Quality Review Member Role: Block Operator Name: FLIP MARTIN MD Position: P4 Oncology Provider Member Role: Primary Care Physician Address: Address: [address] [place] [address] Gynec[facility] On[address] Name: Maryann Mae RN Position: [facility] Member Role: Palliative Care Team Related Persons Name: HAM GRISSOM Name: JESSICA NAVAS Name: ZANDRA ALCANTARA Name: AUSTIN HADDAD Care Team Personnel Name: Pari Brice Position: Quality Review Member Role: Block Operator Name: FLIP MARTIN MD Position: P4 Oncology Provider Member Role: Primary Care Physician Address: Address: [address] [place] [address] Gynec[facility] On[address] Name: Maryann Mae RN Position: [facility] Member Role: Palliative Care Team Related Persons Name: HAM GRISSOM Name: JESSICA NAVAS Name: ZANDRA ALCANTARA Name: AUSTIN HADDAD Care Team Personnel Name: Pari Brice Position: Quality Review Member Role: Block Operator Name: FLIP MARTIN MD Position: P4 Oncology Provider Member Role: Primary Care Physician Address: Address: [address] [place] [address] [facility] On[address] Name: Maryann Mae RN Position: [facility] Member Role: Palliative Care Team Related Persons Name: HAM GRISSOM Name: JESSICA NAVAS Name: ZANDRA ALCANTARA Name: AUSTIN HADDAD Care Team Personnel Name: Pari Brice Position: Quality Review Member Role: Block Operator Name: FLIP MARTIN MD Position: P4 Oncology Provider Member Role: Primary Care Physician Address: Address: [address] [place] [address] Gy[address] On[address] Name: Maryann Mae RN Position: [facility] Member Role: Palliative Care Team Related Persons Name: HAM GRISSOM Name: JESSICA NAVAS Name: ZANDRA ALCANTARA Name: AUSTIN HADDAD Goals (unrecognized section and content) Goals may be documented in a n alternate section FOR RECORDS PERTAINING TO PATIENTS WHO ARE [...] BE BASED ON THE PRIMARY CLINICAL RECORDS. [facility] [employer] [facility]. provides no warranty or guarantee of the accuracy or completeness of information in this document.
[2025-06-02] MEDS: Smz/Tmp Ds Tablet 1 TABLET PO (02:40)
[2025-06-02 02:54] VITALS: BP 118/75; PULSE 75; RESP 18; TEMP 37; O2SAT 98
== END 2025-06-02 03:11 | disposition home or self-care (01) ==
PROVIDERS: Emergency Provider Emergency Medicine; Visit Provider Emergency Medicine
DX: R10.9 Unspecified abdominal pain (principal); Z93.6 Other artificial openings of urinary tract status; R11.2 Nausea with vomiting, unspecified; Z53.29 Procedure and treatment not carried out because of patient's decision for other reasons; G89.29 Other chronic pain; Z85.41 Personal history of malignant neoplasm of cervix uteri; Z92.3 Personal history of irradiation; Z79.891 Long term (current) use of opiate analgesic; F17.210 Nicotine dependence, cigarettes, uncomplicated; F17.290 Nicotine dependence, other tobacco product, uncomplicated
CPT/HCPCS: 80053; 81001; 81025; 85025; 87077; 87086; 87088; 87184; 87186; 99282; A4216; J2405

== ENCOUNTER 2025-06-03 23:27 | Emergency (ER) | payer MEDICARE, SELFPAY ==
[2025-06-03 23:28] VITALS: BP 143/90; PULSE 90; RESP 18; TEMP 36.6; O2SAT 99; BMI 18.1
--- OUTSIDE RECORDS SUMMARY | 2025-06-03 23:50 | XMS RPT_ITS | CCD ---
Author Organization [facility] CliniSyaz Care Team Providers Care Exhibit Designer Name Role Phone Flip Martin Unavailable Unavailable ServetaShira patterson Unavailable Urology Consult Unavailable Unavailable Polo Plummer Unavailable FLIP MARTIN MD Primary Care Physician [phone] FLIP MARTIN MD Primary Care Physician PHYSICIAN, NONE Primary Care Physician Unavailab le [...] Attending Unavailable LACEY LOERA PA-C Consulting Brea jj MARTIN MD, FLIP Primary [...] Consulting Unavailable PHYSICIAN, NONE Primary Care Unavailable ORNY OMER, BRITTNI Attending Unavailalice ROSARIO MD, DALY Consulting Unavailable VARUN LORA, FLIP Attending Unavailable FLIP MARTIN MD Admitting Unavailable VARUN LORA, FLIP Primary Care Unavailable JOHANNA JEAN BAPTISTE MD Consulting Unavailable OLE PACE MD Consulting Unavailable SANTINO SAWYER MD Consulting Unavailable SARAH LORA, DAVID Consulting Unavailable OTHER, PROVIDER NOT SPECIFIED Primary Care Un available OLE PACE MD Attending Unavailable PHYSICIAN, NONE Primary Care Unavailable OLE PACE MD Attending Unavailable ABDIRAHMAN LORA, VIRAL Attending Unavailable HILDA HADDAD MD Consulting Unavailable [...] Primary Care Unavailable Ben Fonseca MD Unavailable DR OLI HERRERA MD Admitting Unavailable OLE PACE MD Primary Care Unavailable STEVEN LORA, ANS Attending Unavailable OLE PACE MD Attending Unavailable SANJEEV LORA, OLE Jenkins Primary Care Unavailable MAAME LORA, NASRIN Attending Unavailable SANJEEV LORA, OLE A Primary Care Unavailable OLE PACE MD Attending Unavailable SANJEEV LORA, OLE A Primary Care Unavailable MAAME LORA, NASRIN Attending Unavailable SANJEEV LORA, OLE A Primary Care Unavailable SANJEEV LORA, OLE Jenkins Attending Unavailable SANJEEV LORA, OLE A Primary Care Unavailable CLOTILDE RANDHAWA DO Consulting Unavailable MAAME LORA, NASRIN Attending Unavailable OLE PACE MD A Primary Care Unavailable OLE PACE MD Attending Unavailable SANJEEV LORA, OLE Jenkins Primary Care Unavailable OLE PACE MD Attending Unavailable SANJEEV LORA, OLE A Primary Care Unavailable SANJEEV LORA, OLE Jenkins Attending Unavailable SANJEEV LORA, OLE A Primary Care Unavailable OLE PACE MD Primary Care Unavailable JENNI RHIANNON Admitting Unavailable GUCCI MACKEY DO Attending Unavailable CLOTILDE RANDHAWA DO Consulting Unavailable OLE PANTOJA MD, I Consulting Unavailable OLE PACE MD [facility] Admitting Unavailable SANTINO SAWYER MD Consulting Unavailable HENRY GUDINO, DR SEGAL Attending Unavailable GONZALEZ SANDERS MD Consulting Unavailable OLE PACE MD Consulting Unavailable OLE PACE MD Primary Care Unavailable GONZALEZ SANDERS MD Consulting Unavailable BHUPENDRA GALVEZ DO Admitting Unavailable FRED CARBAJAL MD Attending Unavailable GONZALEZ SANDERS MD Attending Unavailable OLE PACE MD A Primary Care Unavailable OLE PACE MD A Primary Care Unavailable JEAN OMER, LEONARDO Attending Unavaila OLE Wong MD A Primary Care Unavailable OLE PACE MD Attending Unavailable OLE PACE MD Primary Care Unavailable GONZALEZ SANDERS MD Attending Unavailable CLOTILDE RANDHAWA DO Attending Unavailable OLE PACE MD Primary Care Unavailable DR MADELINE APARICIO MD Attending Unavailable OLE PACE MD A Primary Care Unavailable OLE PACE MD Primary Care Unavailable AVILA OMER, PINA Jenkins Attending Unavail able TADEO LEIJA PA-C Attending UnavailOLE Mcknight MD Primary Care Unavailable VON BACA MD Attending Unavaila CLOTILDE Vasquez DO Consulting Unavailable OLE PACE MD A Primary Care Unavailable AMRIN COTE MD Consulting Unavailable AVILA MILLAN-KANDY, PINA Jenkins Attending Unavail able OLE PACE MD Primary Care Unavailable OLE MONK MD Consulting Unavailable AVILA [employer]-TECHNICAL PROGRAM MANAGER, PINA Jenkins Attending Unavail able SANJEEV LORA, OLE A Primary Care Unavailable MAAME LORA, NASRIN Attending Unavailable SANJEEV LORA, OLE A Primary Care Unavailable YUNIEL DO, NAYELI Consulting Unavailabl e MAAME LORA, NASRIN Attending Unavailable SANJEEV LORA, OLE A Primary Care Unavailable WOLFGANG LORA, GARTH Consulting Unavailable AVILA WAGE AND SALARY ADMINISTRATOR-TECHNICAL PROGRAM MANAGER, PINA Jenkins Attending Unavail able SANJEEV LORA, OLE A Primary Care Unavailable GONZALEZ SANDERS MD Attending Unavailable SANJEEV LORA, OLE A Primary Care Unavailable CYNTHIA GUDINO, DR ARLEY Germain Attending Unavailable SANJEEV LORA, OLE A Primary Care Unavailable ALEC GUDINO, DELMAR Attending Unavailable SANJEEV LORA, LOE A Primary Care Unavailable BALDOMERO LORA, GUCCI Mendosa Attending Unavailable SANJEEV LORA, OLE A Primary Care Unavailable SANJEEV LORA, OLE A Primary Care Unavailable GUCCI ALEXANDRE MD Attending Unavailable AVILA LORA, OLE I Consulting Unavailable SANJEEV LORA, OLE A Primary Care Unavailable JASKARAN MEDRANO MD Attending Unavailable Radha LORA, Dr. Steiner Attending Provider Dr. Maryellen Haile DO Emergency Provider GONZALEZ CARTER DO Admitting Unavailable GONZALEZ CARTER DO Primary Care Unavailable GONZALEZ CARTER DO Attending Unavailable GUCCI GARCIA Admitting Unavailable GUCCI GARCIA Primary Care Unavailable GUCCI GARCIA Attending Unavailable ALICIA RODRIGUEZ MD Admitting Unavailable ALICIA RODRIGUEZ MD Primary Care Unavailable ALICIA RODRIGUEZ MD Attending Unavailable GONZALEZ CARTER DO Admitting Unavailable GONZALEZ CARTER DO Primary Care Unavailable GONZALEZ CARTER DO Attending Unavailable CHRISTO ARIAS DO Attending Unavailable CHRISTO ARIAS DO Admitting Unavailable CHRISTO ARIAS DO Primary Care Unavailable KORINA AGUILAR MD Attending Unavailable KORIAN AGUILAR MD Admitting Unavailable KORINA AGUILAR MD Primary Care Unavailable GONZALEZ CARTER DO Primary Care Unavailable GONZALEZ CARTER DO Attending Unavailable GONZALEZ CARTER DO Admitting Unavailable GONZALEZ CARTER DO Admitting Unavailable GONZALEZ CARTER DO Primary Care Unavailable GONZALEZ CARTER DO Attending Unavailable GONZALEZ CARTER DO Admitting Unavailable GONZALEZ CARTER DO Primary Care Unavailable GONZALEZ CARTER DO Attending Unavailable GUCCI GARCIA Primary Care Unavailable GUCCI GARCIA Attending Unavailable RADHA, GUCCI E Admitting Unavailable DIDGONZALEZ ORTIZ DO Admitting Unavailable DIDGONZALEZ ORTIZ DO Primary Care Unavailable DIDGONZALEZ ORTIZ DO Attending Unavailable BEATRICE QUEZADA DO Attending Unavailable OMBEATRICE CHANG DO Admitting Unavailable OMBEATRICE CHANG DO Primary Care Unavailable RADHA, GUCCI E Admitting Unavailable RADHA, GUCCI E Primary Care Unavailable RADHA, GUCCI E Attending Unavailable RADHA, GUCCI E Attending Unavailable RADHA, GUCCI E Admitting Unavailable RADHA, GUCCI E Primary Care Unavailable GABBY MANDEL DO Attending Unavailable MANDEL, GABBY GUDINO Admitting Unavailable MANDELGABBY DO Primary Care Unavailable DIDGONZALEZ ORTIZ DO Primary Care Unavailable DIDDIANA, GONZALEZ GUDINO Attending Unavailable DIDGONZALEZ ORTIZ DO Admitting Unavailable FLIP MARTIN MD Attending Unavailable FLIP MARTIN MD Admitting Unavailable FLIP MARTIN MD Primary Care Unavailable FLIP MARTIN MD Consulting Unavailable PROVIDER, UNKNOWN Consulting Unavailable AL, NEMR BADIE Attending Unavailable AL, NEMR BADIE Admitting Unavailable AL, NEMR BADIE Primary Care Unavailable DIDGONZALEZ ORTIZ DO Admitting Unavailable DIDGONZALEZ ORTIZ DO Primary Care Unavailable DIDGONZALEZ ORTIZ DO Attending Unavailable ALICIA RODRIGUEZ MD Attending Unavailable ALICIA RODRIGUEZ MD Admitting Unavailable ALICIA RODRIGUEZ MD Primary Care Unavailable GONZALEZ CARTER DO Primary Care Unavailable DIDGONZALEZ ORTIZ DO Attending Unavailable DIDGONZALEZ ORTIZ DO Admitting Unavailable Allergies Allergy Classification Reported Allergen(s) Allergy Type Date of Onset Reaction(s) Facility Haloperidol (1 source) Haloperidol; Translations: [haloperidol] Drug Allergy Tongue swelling (finding) [facility] Penicillins (antibiotic) (1 source) Penicillin; Translations: [penicillins] Drug Allergy Weal (disorder) [facility] (10 sources) Codeine; Translations: [codeine] Drug Allergy [facility] (1 source) oxyCODONE; Translations: [oxycodone] Drug Allergy Vomitting, Nausea [facility] (20 sources) Penicillin; Translations: [penicillins] Drug Allergy Weal (disorder) [facility] (20 sources) Hale - fruit Food allergy Tongue swelling (finding), Difficulty breathing (finding) [facility] (20 sources) Haloperidol; Translations: [haloperidol] Drug Allergy 5 Tongue swelling (finding) [facility] (2 sources) Penicillins Allergy to substance 5 [facility] (1 source) Haloperidol Drug Allergy 5 [facility] (1 source) Penicillins Drug allergy (disorder) 5 [facility] (1 source) Haloperidol Drug Allergy [facility] (1 source) Penicillins Drug allergy (disorder) [facility] Medications Current Medications Medication Drug [...] tab(s), 1 Refill(s), 08/30/22 13:02:00 EDT, Pharmacy: [facility], 167.6, cm, 08/08/22 [...] day(s), # 120 tab(s), 0 Refill(s), Pharmacy: [id number], Cervical cancer, 167.6, cm, 01/01/23 16:31:00 EST, Height, 47.7, kg, 01/01/23 16:31:00 EST, Dosing Weight Start Date: 01/21/23 Stop Date: 02/20/23 Status: Ordered Start: 12-19-2022 End: 01-18-2023 take 1 tablet by mouth every six hours acetaminophen-oxyCODONE 325 mg-5 mg oral tablet Dose = 1 tab(s), Oral, q6hr, X 30 day(s), # 120 tab(s), 0 Refill(s), Pharmacy: [id number], Cervical cancer, 167.6, cm, 11/15/22 9:52:00 EST, Height, 50, kg, 11/15/22 9:52:00 EST, Dosing Weight Start Date: 12/19/22 Stop Date: 01/18/23 Status: Ordered Start: 10-21-2022 End: 11-20-2022 take 1 tablet by mouth every six hours acetaminophen-oxyCODONE 325 mg-5 mg oral tablet Dose = 1 tab(s), Oral, q6hr, X 30 day(s), # 120 tab(s), 0 Refill(s), Pharmacy: [facility], Cervical cancer, 167.6, cm, 09/30/22 17:45:00 EST, Height, 50.4, kg, 09/30/22 17:45:00 EST, Dosing Weight Start Date: 10/21/22 Stop Date: 11/20/22 Status: Ordered Start: 09-18-2022 End: 10-18-2022 take 1 tablet by mouth every six hours acetaminophen-oxyCODONE 325 mg-5 mg oral tablet Dose = 1 tab(s), Oral, q6hr, X 30 day(s), # 120 tab(s), 0 Refill(s), Pharmacy: [facility], Cervical cancer, 167.6, cm, 08/08/22 16:51:00 EDT, Height, 52.5, kg, 08/08/22 16:51:00 EDT, Dosing Weight Start Date: 09/18/22 Stop Date: 10/18/22 Status: Ordered Start: 07-22-2022 End: 08-21-2022 take 1 tablet by mouth every six hours acetaminophen-oxyCODONE 325 mg-5 mg oral tablet Dose = 1 tab(s), Oral, q6hr, X 30 day(s), # 120 tab(s), 0 Refill(s), Pharmacy: [place] [id number], Cervical cancer, 167.6, cm, 07/04/22 10:37:00 EDT, Height, 45.4 Start Date: 07/22/22 Stop Date: 08/21/22 Status: Ordered Start: 06-19-2022 End: 07-19-2022 take 1 tablet by mouth every six hours as needed for pain acetaminophen-oxyCODONE 325 mg-5 mg oral tablet Dose = 1 tab(s), Oral, q6hr, PRN for pain, X 30 day(s), # 120 tab(s), 0 Refill(s), Pharmacy: [facility], Cervical ca Cancer related pain, 167.6, cm, [...] day(s), # 120 tab(s), 0 Refill(s), Pharmacy: [facility], Cervical ca Cancer [...] day(s), # 120 tab(s), 0 Refill(s), Pharmacy: [facility], Cervical ca, 167.6, [...] day(s), # 120 tab(s), 0 Refill(s), Pharmacy: [facility], Cervical ca, 167.6, [...] day(s), # 180 tab(s), 0 Refill(s), Pharmacy: [facility], Cervical cancer, 167.6, [...] BID, # 60 tab(s), 1 Refill(s), Pharmacy: [facility], 167.6, cm, 05/22/21 [...] food, # 120 EA, 0 Refill(s), Pharmacy: [facility], 167.6, cm, 05/15/23 15:33:00 EDT, Height Start Date: 05/15/23 Status: Ordered ciprofloxacin 500 mg oral tablet (3 sources) Quinolone Antimicrobial Start: 05-07-2023 End: 05-17-2023 ciprofloxacin 500 mg oral tablet Dose : 500 mg = 1 tab(s), Oral, q12h, X 10 day(s), # 20 tab(s), 0 Refill(s), 05/17/23 6:33:00 EDT, Pharmacy: [facility], 167, cm, 04/28/23 13:10:00 EDT, Height, 63.9 Start Date: 05/07/23 Stop Date: 05/17/23 Status: Ordered Start: 01-06-2023 End: 01-10-2023 ciprofloxacin 500 mg oral ta blet Dose : 500 mg = 1 tab(s), Oral, q12h, X 4 day(s), # 9 tab(s), 0 Refill(s), 01/10/23 14:45:00 EST, Pharmacy: [facility], 167.6, cm, 01/01/23 16:31:00 EST, Height, 47.7 Start Date: 01/06/23 Stop Date: 01/10/23 Status: Ordered cyclobenzaprine hydrochloride 5 mg oral tablet (1 source) Muscle Relaxant Start: 08-16-2022 End: 08-26-2022 cyclobenzaprine 5 mg oral tablet Dose : 5 mg = 1 tab(s), Oral, TID, PRN Muscle spasm, X 10 day(s), # 30 tab(s), 0 Refill(s), 08/26/22 13:05:00 EDT, Pharmacy: [facility], 167.6, cm, 08/08/22 16:51:00 EDT, Height Start Date: 08/16/22 Stop Date: 08/26/22 Status: Ordered DAPTOmycin 500 mg injection (2 sources) Lipopeptide Antibacterial Start: 05-07-2023 End: 05-17-2023 inject 1 dose intravenously every twenty-four hours DAPTOmycin 500 mg intravenous injection Dose : 383.4 mg =, Intravenous, q24h, X 10 day(s), # 10 EA, 0 Refill(s), 05/17/23 6:32:00 EDT, Pharmacy: [facility], 167, cm, 04/28/23 13:10:00 EDT, Height, 63.9 Start Date: 05/07/23 Stop Date: 05/17/23 Status: Ordered docusate sodium 100 mg oral capsule (4 sources) Start: 10-08-2022 Colace 100 mg oral capsule Dose : 100 mg = 1 cap(s), Oral, BID, PRN as needed for constipation, # 60 cap(s), 2 Refill(s), Pharmacy: [facility], 167.6, cm, 09/30/22 17:45:00 EST, Height, kg, 09/30/22 17:45:00 EST, Dosing Weight Start Date: 10/08/22 Status: Ordered dronabinol 2.5 mg oral capsule (1 source) Cannabinoid Start: 10-08-2022 End: 10-29-2022 Marinol 2.5 mg oral capsule Dose : 2.5 mg = 1 cap(s), Oral, BID, X 21 day(s), # 42 cap(s), 0 Refill(s), 10/29/22 14:33:00 EST, Pharmacy: [facility], Cervical cancer Decreased appetite, 167.6, cm, 09/30/22 17:45:00 EST, Height, 50.4 Start Date: 10/08/22 Stop Date: 10/29/22 Status: Ordered escitalopram 20 mg oral tablet (20 sources) Serotonin Reuptake Inhibitor Start: 2024 take 1 tablet by mouth once daily Escitalopram Oxalate (Lexapro) 20 mg tablet Active 20 mg PO DAILY April 09, 2025 12:00am Start: 06-17-2024 Lexapro 20 mg oral tablet Dose : 20 mg = 1 tab(s), Oral, qDay, # 30 tab(s), 5 Refill(s), Pharmacy: [facility] 167.6, cm, 06/09/24 6:47:00 EDT, Height, kg, 06/09/24 6:47:00 EDT, Dosing Weight Start Date: 06/17/24 Status: Ordered Start: 03-16-2024 Lexapro 20 mg oral tablet Dose : 20 mg = 1 tab(s), Oral, qDay, # 30 tab(s), 2 Refill(s), Pharmacy: [facility] 167.6, cm, 03/04/24 9:28:00 EDT, Height, kg, 03/04/24 9:28:00 EDT, Dosing Weight Start Date: 03/16/24 Status: Ordered Start: 01-06-2024 Lexapro 10 mg oral tablet Dose : 10 mg = 1 tab(s), Oral, qDay, # 30 tab(s), 1 Refill(s), Pharmacy: [facility], 167.6, cm, 01/06/24 10:18:00 EST, Height, kg, 01/06/24 10:18:00 EST, Dosing Weight Start Date: 01/06/24 Status: Ordered Start: 12-08-2023 Lexapro 10 mg oral tablet Dose : 10 mg = 1 tab(s), Oral, qDay, # 30 tab(s), 1 Refill(s), Pharmacy: [facility], 167.6, cm, 12/08/23 14:57:00 EST, Height, kg, 12/08/23 14:57:00 EST, Dosing Weight Start Date: 12/08/23 Status: Ordered Start: 09-12-2023 escitalopram 1 0 mg oral tablet Dose : 10 mg = 1 tab(s), Oral, qDay, # 30 tab(s), 1 Refill(s), Pharmacy: [facility] 167.6, cm, 09/03/23 13:59:00 EDT, Height, kg, 09/03/23 13:59:00 EDT, Dosing Weight Start Date: 09/12/23 Status: Ordered estrogens, conjugated (nursing home) 0.625 mg / medroxyPROGESTERone acetate 2.5 mg oral tablet (2 sources) Progestin, Estrogen Start: 02-21-2022 take 1 tablet by mouth once daily Prempro 0.625 mg-2.5 mg oral tablet Dose = 1 tab(s), Oral, qDay, # 90 tab(s), 2 Refill(s), Pharmacy: [facility], 167.6, cm, 02/21/22 15:19:00 EDT, Height Start Date: 02/21/22 Status: Ordered HYDROmorphone hydrochloride 2 mg oral tablet (2 sources) Opioid Agonist Start: 08-16-2022 End: 08-21-2022 Dilaudid 2 mg oral tablet Dose : 2 mg = 1 tab(s), Oral, q4h, PRN as needed for pain, X 5 day(s), # 28 tab(s), 0 Refill(s), 08/21/22 13:06:00 EDT, Pharmacy: [facility], Cancer related pain History of radiation therapy, 167.6, cm, 08/08/22 16:51:00 EDT, Height, 52.5 Start Date: 08/16/22 Stop Date: 08/21/22 Status: Ordered Start: 04-19-2022 End: 04-26-2022 Dilaudid 2 mg oral tablet Do se : 1 mg = 0.5 tab(s), Oral, q4h, PRN as needed for pain, # 28 tab(s), 0 Refill(s), Pharmacy: [facility], Cervical cancer Cancer [...] hours, # 30 patch(es), 0 Refill(s), Pharmacy: [facility], 167.6, cm, 08/08/22 16:51:00 EDT, Height, 52.5 Start Date: 08/16/22 Status: Ordered LORazepam 1 mg oral tablet (20 sources) Benzodiazepine Start: 2024 take 1 tablet by mouth every eight hours as needed for anxiety Lorazepam (Ativan) 1 mg tablet Active 1 mg PO Q8H as needed for anxiety April 09, 2025 12:00am Start: 07-15-2024 End: 09-13-2024 Ativan 1 mg oral tablet Dose : 1 mg = 1 tab(s), Oral, BID, PRN as needed for anxiety, # 60 tab(s), 1 Refill(s), Pharmacy: [facility] Palliative care patient THO (generalized anxiety disorder), 167.6, cm, 06/21/24 11:41:00 EDT, Height, 62.2, kg, 06/21/24 11:41:00 EDT, Dosing Weight Start Date: 07/15/24 Stop Date: 09/13/24 Status: Ordered Start: 05-14-2024 End: 07-13-2024 Ativan 1 mg oral tablet Dose : 1 mg = 1 tab(s), Oral, BID, PRN as needed for anxiety, # 60 tab(s), 1 Refill(s), Pharmacy: [facility] Palliative care patient THO (generalized anxiety disorder), 167.6, cm, 04/28/24 11:26:00 EDT, Height, 62.5, kg, 04/28/24 11:26:00 EDT, Dosing Weight Start Date: 05/14/24 Stop Date: 07/13/24 Status: Ordered Start: 01-06-2024 End: 04-18-2024 Ativan 1 mg oral tablet Dose : 1 mg = 1 tab(s), Oral, BID, PRN as needed for anxiety, # 60 tab(s), 0 Refill(s), Pharmacy: [facility], Palliative care patient THO (generalized anxiety disorder), 167.6, cm, 03/04/24 9:28:00 EDT, Height, 60, kg, 03/04/24 9:28:00 EDT, Dosing Weight Start Date: 03/19/24 Stop Date: 04/18/24 Status: Ordered Start: 11-19-2023 LORazepam 1 mg oral tablet Dose : 1 mg = 1 tab(s), Oral, BID, # 60 tab(s), 0 Refill(s), Pharmacy: [facility] Cancer related pain History of cervical cancer, 167.6, cm, 11/19/23 9:33:00 EST, Height, 61.3, kg, 11/19/23 9:33:00 EST, Dosing Weight Start Date: 11/19/23 Status: Ordered Start: 10-20-2023 LORazepam 1 mg oral tablet Dose : 1 mg = 1 tab(s), Oral, BID, # 60 tab(s), 0 Refill(s), Pharmacy: [facility] Cancer related pain History of cervical cancer, 167.6, cm, 09/03/23 13:59:00 EDT, Height, 63.6, kg, 09/03/23 13:59:00 EDT, Dosing Weight Start Date: 10/20/23 Status: Ordered Start: 08-21-2023 LORazepam 1 mg oral tablet Dose : 1 mg = 1 tab(s), Oral, BID, # 60 tab(s), 1 Refill(s), Pharmacy: [facility] [place] Cancer related pain History of cervical cancer, [...] 0 Refill(s), 07/25/23 1:35:00 PM EDT, Pharmacy: [facility] Anxiety Cervical ca, 167.6, cm, 07/09/23 7:02:00 EDT, Height, 62.8, kg, 07/09/23 7:02:00 EDT, Dosing Weight Start Date: 07/16/23 Stop Date: 07/25/23 Status: Ordered Start: 09-24-2021 End: 03-14-2023 Ativan 1 mg oral tablet Dose : 1 mg = 1 tab(s), Oral, TID, PRN PRN as needed for anxiety, X 30 day(s), # 90 tab(s), 0 Refill(s), 03/14/23 9:57:00 EDT, Pharmacy: [facility], Cervical cancer Anxiety, 167.6, cm, 01/01/23 16:31:00 EST, Height, 47.7, kg, 01/01/23 16:... Start Date: 02/12/23 Stop Date: 03/14/23 Status: Ordered Start: 06-22-2021 End: 09-20-2021 Ativan 1 mg oral tablet Dose : 1 mg = 1 tab(s), Oral, TID, X 30 day(s), # 90 tab(s), 2 Refill(s), 09/20/21 15:11:00 EST, Pharmacy: [facility], Cervical cancer, 167.6, cm, 05/22/21 17:26:00 EDT, Height, 45.4, kg, 05/22/21 17:26:00 EDT, Dosing Weight Start Date: 06/22/21 Stop Date: 09/20/21 Status: Ordered megestrol 40 mg/mL oral suspension (1 source) Start: 05-17-2021 take 1 dose by mouth once daily megestrol 40 mg/mL oral suspension Dose : 800 mg = 20 mL, Oral, Daily, # 600 mL, 2 Refill(s), Pharmacy: [facility], 167.6, cm, 05/17/21 [...] 1 Refill(s), 12/19/23 10:06:00 AM EST, Pharmacy: [facility] 167.6, cm, 11/19/23 9:33:00 EST, Height, kg, 11/19/23 9:33:00 EST, Dosing Weight Start Date: 11/19/23 Stop Date: 12/19/23 Status: Ordered mirtazapine 15 mg oral table t (10 sources) Start: 07-04-2023 mirtazapine 15 mg oral tablet Dose : 15 mg = 1 tab(s), Oral, qDay, # 30 tab(s), 0 Refill(s), Pharmacy: [facility] 167.6, cm, 06/24/23 13:14:00 EDT, Height, kg, 06/24/23 13:14:00 EDT, Dosing Weight Start Date: 07/04/23 Status: Ordered Start: 06-03-2023 mirtazapine 15 mg oral tablet Dose : 15 mg = 1 tab(s), Oral, qDay, # 30 tab(s), 0 Refill(s), Pharmacy: [facility], 167.6, cm, 05/15/23 [...] qDay, # 30 tab(s), 3 Refill(s), Pharmacy: [facility], 167.6, cm, 01/01/23 [...] q12h, # 60 tab(s), 0 Refill(s), Pharmacy: [facility] Cervical cancer, 167.6, cm, 05/15/23 15:33:00 [...] q12h, # 28 tab(s), 0 Refill(s), Pharmacy: [facility], Cervical cancer, 167, [...] q12h, # 60 tab(s), 0 Refill(s), Pharmacy: [facility], Cervical cancer Cancer related pain, 167.6, cm, 02/23/23 21:09:00 EDT, Height, 55.7 Start Date: 03/04/23 Status: Ordered Start: 10-08-2022 End: 10-29-2022 take 1 tablet by mouth every hour, then take 1 tablet by mouth every twelve hours MS Contin 30 mg/8-12 hrs oral tablet, extended release Dose : 30 mg = 1 tab(s), Oral, q12h, # 42 tab(s), 0 Refill(s), Pharmacy: [facility], Cervical cancer, 167.6, cm, 09/30/22 17:45:00 EST, Height, 50.4 Start Date: 10/08/22 Stop Date: 10/29/22 Status: Ordered naproxen 250 mg oral tablet (4 sources) Nonsteroidal Anti-inflammatory Drug Start: 08-16-2022 naproxen 250 mg oral tablet Dose : 250 mg = 1 tab(s), Oral, BID, # 60 tab(s), 0 Refill(s), Pharmacy: [facility], 167.6, cm, 08/08/22 16:51:00 EDT, Height Start Date: 08/16/22 Status: Ordered nitrofurantoin, macrocrystals 25 mg / nitrofurantoin, monohydrate 75 mg oral capsule (1 source) Nitrofuran Antibacterial Start: 08-16-2022 End: 08-19-2022 Macrobid 100 mg oral capsule Dose : 100 mg = 1 cap(s), Oral, BID, Take with food, X 3 day(s), # 6 cap(s), 0 Refill(s), 08/19/22 13:08:00 EDT, Pharmacy: [facility], 167.6, cm, 08/08/22 16:51:00 EDT, Height, 52.5 Start Date: 08/16/22 Stop Date: 08/19/22 Status: Ordered Normal saline (14 sources) Start: 11-21-2022 Normal Saline Flush 0.9% injectable solution Dose : 0.09 gram(s) = 10 mL, IR Drain, Daily, # 300 mL, 12 Refill(s), Pharmacy: [facility], 167.6, cm, 11/15/22 9:52:00 EST, Height, kg, 11/15/22 9:52:00 EST, Dosing Weight Start Date: 11/21/22 Status: Ordered Start: 10-09-2022 Normal Saline Flush 0.9% injectable solution Dose : 0.09 gram(s) = 10 mL, IR Drain, Daily, # 300 mL, 12 Refill(s), Pharmacy: [facility], 167.6, cm, 09/30/22 17:45:00 EST, Height, kg, 09/30/22 17:45:00 EST, Dosing Weight Start Date: 10/09/22 Status: Ordered Start: 10-08-2022 Normal Saline Flush 0.9% injectable solution Dose : 0.09 gram(s) = 10 mL, IR Drain, Daily, # 300 mL, 12 Refill(s), Pharmacy: [facility], 167.6, cm, 09/30/22 17:45:00 EST, Height, kg, 09/30/22 17:45:00 EST, Dosing Weight Start Date: 10/08/22 Status: Ordered Start: 04-12-2021 Normal Saline Flush 0.9% injectable solution Dose : 0.09 gram(s) = 10 mL, IR Drain, Daily, # 300 mL, 12 Refill(s), Pharmacy: [facility], 167.6, cm, 04/12/21 10:36:00 EDT, Height, kg, 04/12/21 10:36:00 EDT, Dosing Weight Start Date: 04/12/21 Status: Ordered OLANZapine 5 mg oral tablet (3 sources) Atypical Antipsychotic Start: 06-21-2022 OLANZap ine 5 mg oral tablet Dose : 5 mg = 1 tab(s), Oral, qHS, # 90 tab(s), 3 Refill(s), Pharmacy: [facility], 167.6, cm, 05/23/22 11:20:00 EDT, Height, kg, 05/23/22 11:20:00 EDT, Dosing Weight Start Date: 06/21/22 Status: Ordered Start: 04-19-2022 OLANZapine 5 m g oral tablet Dose : 5 mg = 1 tab(s), Oral, qHS, # 30 tab(s), 1 Refill(s), Pharmacy: [facility], 167.6, cm, 04/14/22 22:09:00 EDT, Height Start Date: 04/19/22 Status: Ordered ondansetron 4 mg oral tablet (20 sources) 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 Start: 05-16-2025 ondansetron 4 mg ora l tablet Dose : 4 mg = 1 tab(s), Oral, TID, # 90 tab(s), 2 Refill(s), Pharmacy: [facility] [place] 167.6, cm, 05/11/25 11:14:00 EDT, Height, kg, 05/11/25 11:14:00 EDT, Dosing Weight Start Date: 05/16/25 Status: Ordered Quantity: 90.0 Unit: tab(s) Repeat number: 3 Start: 12-10-2024 ondansetron 4 mg oral tablet Dose : 4 mg = 1 tab(s), Oral, BID, # 60 tab(s), 2 Refill(s), Pharmacy: [facility] 165.1, cm, 04/11/25 10:32:00 EDT, Height, kg, 04/11/25 10:32:00 EDT, Dosing Weight Start Date: 04/26/25 Status: Ordered Quantity: 60.0 Unit: tab(s) Repeat number: 3 Start: 05-24-2024 ondansetron 4 mg oral tablet Dose : 4 mg = 1 tab(s), Oral, BID, TAKE ONE TABLET BY MOUTH EVERY 8 HOURS NEEDED FOR NAUSEA AND VOMITING, # 60 tab(s), 2 Refill(s), Pharmacy: [facility] 167.6, cm, 05/24/24 11:29:00 EDT, Height, kg, 05/24/24 11:29:00 EDT, Dosing Weight Start Date: 05/24/24 Status: Ordered Start: 03-16-2024 End: 04-30-2024 Zofran 4 mg oral tablet Dose : 4 mg = 1 tab(s), Oral, q8h, PRN Nausea/Vomiting, X 15 day(s), # 45 tab(s), 2 Refill(s), 04/30/24 4:58:00 PM EDT, Pharmacy: [facility] 167.6, cm, 03/04/24 9:28:00 EDT, Height, kg, [...] 4 Refill(s), 02/07/24 9:38:00 AM EDT, Pharmacy: [facility] 167.6, cm, 11/19/23 9:33:00 EST, Height, kg, 11/19/23 9:33:00 EST, Dosing Weight Start Date: 11/24/23 Stop Date: 02/07/24 Status: Ordered Start: 04-28-2023 End: 10-30-2023 ondansetron 4 mg oral tablet Dose : 4 mg = 1 tab(s), Oral, q6h, PRN Nausea/Vomiting, # 60 tab(s), 2 Refill(s), Pharmacy: [facility] 167.6, cm, 09/03/23 13:59:00 EDT, Height, kg, 09/03/23 13:59:00 EDT, Dosing Weight Start Date: 09/15/23 Stop Date: 10/30/23 Status: Ordered Start: 01-23-2023 End: 02-22-2023 ondansetron 4 mg oral tablet Dose : 4 mg = 1 tab(s), Oral, q6h, PRN Nausea/Vomiting, # 120 tab(s), 0 Refill(s), Pharmacy: [facility], 167.6, cm, 01/01/23 16:31:00 EST, Height Start Date: 01/23/23 Stop Date: 02/22/23 Status: Ordered Start: 10-08-2022 End: 12-07-2022 Zofran 4 mg oral tablet Dose : 4 mg = 1 tab(s), Oral, q6h, PRN Nausea/Vomiting, # 60 tab(s), 1 Refill(s), Pharmacy: [facility], Cervical cancer, 167.6, cm, 09/30/22 17:45:00 EST, Height, kg, 09/30/22 17:45:00 EST, Dosing Weight Start Date: 11/06/22 Status: Ordered Start: 07-19-2022 End: 09-17-2022 Zofran 4 mg oral tablet Dose : 4 mg = 1 tab(s), Oral, q6h, PRN Nausea/Vomiting, Take 20-30 minutes prior to taking pain medication, # 120 tab(s), 1 Refill(s), Pharmacy: [facility], 167.6, cm, 07/04/22 10:37:00 EDT, Height, kg, 07/04/22 10:37:00 EDT, Dosing Weight Start Date: 07/19/22 Stop Date: 09/17/22 Status: Ordered Start: 03-14-2022 End: 06-18-2022 Zofran 4 mg oral tablet Dose : 4 mg = 1 tab(s), Oral, q6h, PRN Nausea/Vomiting, Take 20-30 minutes prior to taking pain medication, # 120 tab(s), 1 Refill(s), Pharmacy: [facility], 167.6, cm, 04/14/22 22:09:00 EDT, Height, kg, 04/14/22 22:09:00 EDT, Dosing Weight Start Date: 04/19/22 Stop Date: 06/18/22 Status: Ordered Start: 11-05-2021 End: 06-17-2022 take 1 dose by mouth every six hours ondansetron 4 mg oral disintegrating strip Dose : 4 mg = 1 film, Oral, q6h, X 30 day(s), # 30 film, 4 Refill(s), 06/17/22 12:00:00 EDT, Pharmacy: [facility], 167.6, cm, 01/16/22 19:29:00 EDT, Height, kg, 01/16/22 19:29:00 EDT, Dosing Weight Start Date: 01/18/22 Stop Date: 06/17/22 Status: Ordered Start: 08-07-2021 End: 10-06-2021 take 1 dose by mouth every six hours ondansetron 4 mg oral disintegrating strip Dose : 4 mg = 1 film, Oral, q6h, X 30 day(s), # 30 film, 1 Refill(s), 10/06/21 11:19:00 EST, Pharmacy: [facility], 167.6, cm, 05/22/21 17:26:00 EDT, Height, kg, 05/22/21 17:26:00 EDT, Dosing Weight Start Date: 08/07/21 Stop Date: 10/06/21 Status: Ordered take 9 tablets by mo ut every four hours as needed Zofran 4 [...] today, # 240 tab(s), 0 Refill(s), Pharmacy: [facility] Cervical ca Cancer related pain, 164, cm, [...] pain, # 240 tab(s), 0 Refill(s), Pharmacy: [facility] Cervical ca Cancer related pain, 165.1, cm, 04/11/25 10:32:00 EDT, Height, 50, kg, 04/11/25 10:32:00 EDT, Dosing Weight Start Date: 04/11/25 Status: Ordered Quantity: 240.0 Unit: tab(s) Repeat number: 1 Indications: Neoplasm related pain (acute) (chronic); Malignant neoplasm of cervix uteri, unspecified; Start: 04-09-2025 take 2 tablets by [facility] every six hours as needed for pain Oxycodone 5 mg tablet Active 10 mg PO EVERY 6 HOURS as needed for pain 0 April 09, 2025 12:00am Start: 03-10-2025 oxyCODONE 5 mg oral tablet ( IMMEDIATE release ) Dose : 10 mg = 2 tab(s), Oral, q6h, PRN for pain, may dispense 03/11/25, # 240 tab(s), 0 Refill(s), Pharmacy: [facility] Cervical ca Cancer related pain, 165.1, cm, [...] pain, # 240 tab(s), 0 Refill(s), Pharmacy: [facility] Cervical ca Cancer related pain, 167.6, cm, [...] today, # 240 tab(s), 0 Refill(s), Pharmacy: [facility] Cervical ca Cancer related pain, 167.6, cm, 07/19/24 11:26:00 EDT, Height, 60.9, kg, 07/19/24 11:26:00 EDT, Dosing Weight Start Date: 07/19/24 Status: Ordered Start: 05-24-2024 oxyCODONE 5 mg oral tablet ( IMMEDIATE release ) Dose : 5 mg = 1 tab(s), Oral, q6hr, PRN for pain, # 120 tab(s), 0 Refill(s), Pharmacy: [facility] Cancer related pain History of cervical cancer, 167.6, cm, 05/24/24 11:29:00 EDT, Height, 61.5, kg, 05/24/24 11:29:00 EDT, Dosing Weight Start Date: 05/24/24 Status: Ordered Start: 04-01-2024 oxyCODONE 5 mg oral tablet ( IMMEDIATE release ) Dose : 10 mg = 2 tab(s), Oral, q8h, PRN for pain, # 150 tab(s), 0 Refill(s), Pharmacy: [facility] Cancer related pain History of cervical cancer, 167.6, cm, 03/04/24 9:28:00 EDT, Height, 60, kg, 03/04/24 9:28:00 EDT, Dosing Weight Start Date: 04/01/24 Status: Ordered Start: 02-04-2024 oxyCODONE 5 mg oral tablet ( IMMEDIATE release ) Dose : 10 mg = 2 tab(s), Oral, q8h, PRN for pain, # 150 tab(s), 0 Refill(s), Pharmacy: [facility] Cancer related pain History of cervical cancer, 167.6, cm, 03/04/24 9:28:00 EDT, Height, 60, kg, 03/04/24 9:28:00 EDT, Dosing Weight Start Date: 03/04/24 Status: Ordered Start: 01-06-2024 oxyCODONE 10 m g oral tablet Dose : 10 mg = 1 tab(s), Oral, q8h, PRN for pain, # 90 tab(s), 0 Refill(s), Pharmacy: [facility], Cancer related pain History of cervical cancer, 167.6, cm, 01/06/24 10:18:00 EST, Height, 58.3, kg, 01/06/24 10:18:00 EST, Dosing Weight Start Date: 01/06/24 Status: Ordered Start: 12-08-2023 oxyCODONE 10 m g oral tablet Dose : 10 mg = 1 tab(s), Oral, q6h, PRN for pain, # 120 tab(s), 0 Refill(s), Pharmacy: [facility], Cancer related pain History of cervical cancer, 167.6, cm, 12/08/23 14:57:00 EST, Height, 58.2, kg, 12/08/23 14:57:00 EST, Dosing Weight Start Date: 12/08/23 Status: Ordered Start: 11-20-2023 OxyContin 10 m g oral tablet, extended release Dose : 10 mg = 1 tab(s), Oral, q12h, # 60 tab(s), 0 Refill(s), Pharmacy: [facility] Cervical ca, 167.6, cm, 11/19/23 9:33:00 EST, Height, 61.3, kg, 11/19/23 9:33:00 EST, Dosing Weight Start Date: 11/20/23 Status: Ordered Start: 11-05-2023 oxyCODONE 15 m g oral tablet ( IMMEDIATE release ) Dose : 15 mg = 1 tab(s), Oral, q6hr, PRN as needed for pain, # 120 tab(s), 0 Refill(s), [facility]acy: [facility] Cervical cancer, 167.6, cm, 10/22/23 10:21:00 EST, Height, 61.4, kg, 10/22/23 10:21:00 EST, Dosing Weight Start Date: 11/05/23 Status: Ordered Start: 10-16-2023 OxyContin 15 m g oral tablet, extended release Dose : 15 mg = 1 tab(s), Oral, BID, # 60 tab(s), 0 Refill(s), Pharmacy: [facility] Cancer related pain Cervical ca, 167.6, cm, 09/03/23 13:59:00 EDT, Height, 63.6, kg, 09/03/23 13:59:00 EDT, Dosing Weight Start Date: 10/16/23 Status: Ordered Start: 09-12-2023 oxyCODONE 15 m g oral tablet ( IMMEDIATE release ) Dose : 15 mg = 1 tab(s), Oral, q6hr, may fill on 10/05/23, # 120 tab(s), 0 Refill(s), [facility]acy: [facility] Cervical cancer, 167.6, cm, 09/03/23 13:59:00 EDT, Height, 63.6, kg, 09/03/23 13:59:00 EDT, Dosing Weight Start Date: 09/12/23 Status: Ordered Start: 09-12-2023 OxyContin 15 m g oral tablet, extended release Dose : 15 mg = 1 tab(s), Oral, BID, # 60 tab(s), 0 Refill(s), Pharmacy: [facility] Cancer related pain Cervical ca, 167.6, cm, 09/03/23 13:59:00 EDT, Height, 63.6, kg, 09/03/23 13:59:00 EDT, Dosing Weight Start Date: 09/12/23 Status: Ordered Start: 08-21-2023 oxyCODONE 10 m g oral tablet ( IMMEDIATE release ) Dose : 10 mg = 1 tab(s), Oral, q6h, PRN as needed for pain, # 120 tab(s), 0 Refill(s), Pharmacy: [facility] Cancer related pain History of cervical cancer, 167.6, cm, 08/21/23 15:13:00 EDT, Height, 64.2, kg, 08/21/23 15:13:00 EDT, Dosing Weight Start Date: 08/21/23 Status: Ordered Start: 08-06-2023 OxyContin 15 m g oral tablet, extended release Dose : 15 mg = 1 tab(s), Oral, BID, # 60 tab(s), 0 Refill(s), Pharmacy: [facility] Cancer related pain Cervical ca, 167.6, cm, 07/30/23 11:18:00 EDT, Height, 62.6, kg, 07/30/23 11:18:00 EDT, Dosing Weight Start Date: 08/06/23 Status: Ordered Start: 07-24-2023 End: 08-03-2023 oxyCODONE 5 mg oral tablet ( IMMEDIATE release ) Dose : 15 mg = 3 tab(s), Oral, q4hr, PRN as needed for pain, # 180 tab(s), 0 Refill(s), Pharmacy: [facility] Cancer related pain Cervical ca, 167.6, cm, 07/24/23 10:14:00 EDT, Height, 67.8, kg, 07/24/23 10:14:00 EDT, Dosing Weight Start Date: 07/24/23 Stop Date: 08/03/23 Status: Ordered Start: 07-15-2023 OxyContin 15 m g oral tablet, extended release Dose : 15 mg = 1 tab(s), Oral, BID, # 60 tab(s), 0 Refill(s), [facility]acy: [facility] Cancer related pain Cervical ca, 167.6, cm, 07/09/23 7:02:00 EDT, Height, 62.8, kg, 07/09/23 7:02:00 EDT, Dosing Weight Start Date: 07/15/23 Status: Ordered Start: 07-15-2023 End: 07-22-2023 oxyCODONE 5 mg oral tablet ( IMMEDIATE release ) Dose : 15 mg = 3 tab(s), Oral, q4hr, PRN as needed for pain, # 126 tab(s), 0 Refill(s), Pharmacy: [facility] Cancer related pain Cervical ca, 167.6, cm, [...] 0 Refill(s), 07/26/23 11:49:00 AM EDT, Pharmacy: [facility] Cervical cancer, 167.6, cm, 06/24/23 13:14:00 EDT, Height, 64, kg, 06/24/23 13:14:00 EDT, Dosing Weight Start Date: 06/26/23 Stop Date: 07/26/23 Status: Ordered Start: 05-07-2023 End: 05-17-2023 oxyCODONE 10 mg oral tablet ( IMMEDIATE release ) Dose : 10 mg = 1 tab(s), Oral, q4h, PRN Pain, X 5 day(s), # 30 tab(s), 0 Refill(s), 05/17/23 10:46:00 EDT, Pharmacy: [facility], Cervical cancer, 167, [...] tab(s), 0 Refill(s), 04/03/23 8:11:00 EDT, Pharmacy: [facility], Cervical cancer Cancer related pain, 167.6, cm, 02/23/23 21:09:00 EDT, Height, 55.7 Start Date: 03/04/23 Stop Date: 04/03/23 Status: Ordered Start: 10-08-2022 End: 10-29-2022 oxyCODONE 10 mg oral tablet ( IMMEDIATE release ) Dose : 10 mg = 1 tab(s), Oral, q4h, PRN abdominal discomfort, X 21 day(s), # 126 tab(s), 0 Refill(s), 10/29/22 14:33:00 EST, Pharmacy: [facility], Cervical cancer, 167.6, cm, 09/30/22 17:45:00 EST, Height, 50.4 Start Date: 10/08/22 Stop Date: 10/29/22 Status: Ordered pantoprazole 40 mg delayed release oral tablet (2 sources) Proton Pump Inhibitor Start: 11-19-2023 pantoprazole 40 mg o ral enteric coated tablet Dose : 40 mg = 1 tab(s), Oral, qDayAC, # 30 tab(s), 1 Refill(s), Pharmacy: [facility] 167.6, cm, 11/19/23 9:33:00 EST, Height, kg, 11/19/23 9:33:00 EST, Dosing Weight Start Date: 11/19/23 Status: Ordered potassium chloride 20 meq oral tablet (1 source) Start: 04-28-2024 Potassium Chlo ride (Zbf-Bbcc-Vdn M20) 20 mEq oral tablet, extended release [...] tab(s), 1 Refill(s), 06/18/22 15:02:00 EDT, Pharmacy: [facility], 167.6, cm, 04/14/22 22:09:00 EDT, Height Start Date: 04/19/22 Stop Date: 06/18/22 Status: Ordered sertraline 25 mg oral tablet (2 sources) Serotonin Reuptake Inhibitor Start: 08-21-2023 Zoloft 25 mg oral tablet Dose : 25 mg = 1 tab(s), Oral, qDay, # 30 tab(s), 1 Refill(s), Pharmacy: [facility] 167.6, cm, 08/21/23 15:13:00 EDT, Height, kg, 08/21/23 15:13:00 EDT, Dosing Weight Start Date: 08/21/23 Status: Ordered sulfamethoxazole 800 mg / trimethoprim 160 mg oral tablet (11 sources) Dihydrofolate Reductase Inhibitor Antibacterial, Sulfonamide Antimicrobial Start: 04-09-2025 Sulfamethoxazole-Tri met hoprim (Bactrim Ds) 800-160 mg tablet Active 1 {tbl} PO TWICE A DAY 14 7 0 June 02, 2025 12:00am Start: 03-08-2025 End: 04-07-2025 take 1 tablet by mouth twice daily Bactrim DS 800 mg-160 mg oral tablet Dose = 1 tab(s), Oral, BID, X 30 day(s), # 60 tab(s), 0 Refill(s), Pharmacy: [facility] 165.1, cm, 03/08/25 14:18:00 EDT, Height, [...] day(s), # 10 tab(s), 0 Refill(s), Pharmacy: [facility], 167.6, cm, 01/01/23 [...] BID, # 30 cap(s), 2 Refill(s), Pharmacy: [facility] 167.6, cm, 07/19/24 11:26:00 EDT, Height, [...] qHS, # 30 cap(s), 0 Refill(s), Pharmacy: [facility], Cervical cancer, 167.6, cm, 05/15/23 15:33:00 EDT, Height, 65.9, kg, 05/15/23 15:33:00 EDT, Dosing Weight Start Date: 06/09/23 Stop Date: 07/09/23 Status: Ordered Start: 04-28-2023 End: 06-07-2023 take 1 capsule by mouth once daily at bedtime gabapentin 300 mg oral capsule 1 cap(s), Oral, qHS, # 30 cap(s), 30, 0 Refill(s), Pharmacy: [facility], 167, cm, 04/28/23 [...] nausea/vomiting, # 40 supp, 0 Refill(s), Pharmacy: [facility], 167.6, cm, 08/08/22 [...] 04-15-2022 Episodic Genitourinary symptoms and ill-defined conditions (11 sources) Urostomy present; Translations: [Other artificial openings [...] Episodic Other diseases of kidney and ureters (2 sources) Occlusion of ureter; 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 [...] Test Name Value Interpretation Reference Range Facility Absolute lymphocyte countOrd ered By: Maryellen Haile on 06-02-2025 Lymphocytes Auto (Unsp spec) [#/Vol] 3.10 10*3/uL 0.83-4.51 [place] Absolute neutrophil countOrd ered By: Maryellen Haile on 06-02-2025 Neutrophils (Bld) [#/Vol] 5.2 10*3/uL 2.0-7.7 [place] Anion gap in Serum or Plasma Ordered By: Maryellen Haile on 06-02-2025 Anion gap [Moles/Vol] 13 mmol/L 5-15 [facility] Automated lymphocyte count a s percentage of total leukocytesOrdered By: Maryellen Haile on 06-02-2025 Lymphocytes/100 WBC Auto (Unsp spec) 32.7 % 19-41 [place] BUN/creatinine ratioOrdered By: Maryellen Haile on 06-02-2025 Urea nitrogen/Creatinine [Mass ratio] 9.5 mg/mg Low 10-20 [place] Basophil percentageOrdered B y: Maryellen Haile on 06-02-2025 Basophils/100 WBC (Bld) 0.9 % 0-1 [facility] Bilirubin Test strip Ql (U)O rdered By: Maryellen Haile on 06-02-2025 Bilirubin Ql (U) Negative Negative [place] Bilirubin, totalOrdered By: Maryellen Haile on 06-02-2025 Bilirubin [Mass/Vol] mg/dL 0.00-1.30 [facility] Carbon dioxide, total [Moles /volume] in Central venous bloodOrdered By: Maryellen Haile on 06-02-2025 CO2 [Moles/Vol] 22.2 mmol/L 21.0-32.0 [place] Chloride assayOrdered By: Rajesh Haile on 06-02-2025 Chloride [Moles/Vol] 102 mmol/L 98-108 [facility] Eosinophil percentageOrdered By: Maryellen Haile on 06-02-2025 Eosinophils/100 WBC (Bld) 2.5 % 0-5 [place] Erythrocyte distribution wid th ratioOrdered By: Maryellen Haile on 06-02-2025 Erythrocyte distribution width (RBC) [Ratio] 14.7 % High 11.6-14.6 [place] Erythrocyte distribution wid th standard deviationOrdered By: Maryellen Haile 06-02-2025 Erythrocyte distribution width (RBC) [Ratio] 51.6 fl High 35.1-43.9 [place] Glomerular filtration rate ( GFR) estimation/1.73 sq m using serum, plasma, or whole bOrdered By: Maryellen Haile on 06-02-2025 GFR/1.73 sq M.predicted among non-blacks MDRD (S/P/Bld) [Vol rate/Area] 74 mL/min/{1.73_m2} >60 [place] Comment on above: mL/min/1.73m2 CKD-EP I Creatinine Equation (2020) Hematocrit Auto (Bld) [Volum e fraction]Ordered By: Maryellen Haile on 06-02-2025 Hematocrit (Bld) [Volume fraction] 33.2 % Low 37-47 [place] Hemoglobin measurementOrdere d By: Maryellen Haile on 06-02-2025 Hemoglobin (Bld) [Mass/Vol] 11.3 g/dL Low 12.0-15.0 [place] Immature granulocytes/100 WB C Auto (Bld)Ordered By: Maryellen Haile on 06-02-2025 Immature granulocytes/100 WBC (Bld) 0.300 % 0.0-0.9 [place] Comment on above: IG% - Immature Granu locytes (promyelocytes, myelocytes and metamyelocytes) > 1% indicates that a LEFT SHIFT is Present. Ketones Test strip Ql (U)Ord ered By: Maryellen Haile on 06-02-2025 Ketones Ql (U) Negative Negative [place] [facility] - Chemistry and C hemistry - challengeOrdered By: Maryellen Haile on 06-02-2025 AST [Catalytic activity/Vol] 15 U/L <32 [facility] MCV (mean corpuscular volume ) determinationOrdered By: Maryellen Haile on 06-02-2025 MCV (RBC) [Entitic vol] 96.5 fL 81-99 [facility] Mean corpuscular hemoglobin (MCH) determinationOrdered By: Maryellen Haile on 06-02-2025 MCH (RBC) [Entitic mass] 32.8 pg High 27.0-32.0 [place] Mean corpuscular hemoglobin concentration (MCHC) determinationOrdered By: Maryellen Haile 06-02-2025 MCHC (RBC) [Mass/Vol] 34.0 g/dL 32-36 [facility] Mean platelet volume determi nationOrdered By: Maryellen Haile on 06-02-2025 Platelet mean volume (Bld) [Entitic vol] 9.5 fL 6.2-12.0 [place] Microscopic analysis of urin e for red blood cells (RBC)Ordered By: Maryellen Haile on 06-02-2025 Microscopic analysis of urine for red blood cells (RBC) 0 SEEN /hpf 0-5 [place] Monocyte percentageOrdered B y: Maryellen Haile on 07-31-2025 Monocytes/100 WBC (Bld) 9.0 % 0-10 [facility] Mucus LM Ql (Urine sed)Order ed By: Maryellen Haile on 06-02-2025 Mucus Ql (Urine sed) 0 SEEN /hpf [facility] Neutrophil percentageOrdered By: Maryellen Haile on 06-02-2025 Neutrophils/100 WBC (Bld) 54.6 % 47-70 [place] Nitrite Test strip Ql (U)Ord ered By: Maryellen Haile on 06-02-2025 Nitrite Ql (U) Negative Negative [place] Nucleated red blood cell per centageOrdered By: Maryellen Haile on 06-02-2025 Nucleated RBC/100 WBC (Bld) [Ratio] 0 % 0-5 [place] Platelet countOrdered By: Rajesh Haile on 06-02-2025 Platelets (Bld) [#/Vol] 333 10*3/uL 150-450 [place] Potassium measurement (mass/ volume)Ordered By: Maryellen Haile on 06-02-2025 Potassium (Unsp spec) [Mass/Vol] 3.8 mmol/L 3.3-5.1 [place] Protein Test strip Ql (U)Ord ered By: Maryellen Haile on 06-02-2025 Protein Ql (U) 15 mg/dl High Negative [place] RBC Auto (Bld) [#/Vol]Ordere d By: Maryellen Haile on 06-02-2025 RBC (Bld) [#/Vol] 3.44 10*6/uL Low 4.2-5.4 [facility] Serum creatinine measurement (mass/volume)Ordered By: Maryellen Haile on 06-02-2025 Creatinine [Mass/Vol] 1.01 mg/dL 0.70-1.20 [facility] Serum globulin measurementOr dered By: Maryellen Hiale on 06-02-2025 Globulin (S) [Mass/Vol] 2.2 g/dL 2.2-4.2 [facility] Serum glucose measurement (m ass/volume)Ordered By: Maryellen Haile on 06-02-2025 Glucose [Mass/Vol] 110 mg/dL High 70-99 [facility] Serum or plasma alanine garcia otransferase (ALT) measurementOrdered By: Maryellen Haile on 06-02-2025 ALT [Catalytic activity/Vol] 11 U/L <35 [place] Serum or plasma albumin zach urement (mass/volume)Ordered By: Maryellen Haile on 06-02-2025 Albumin [Mass/Vol] 3.9 g/dL 3.5-5.0 [facility] Serum or plasma albumin/glob ulin mass ratioOrdered By: Maryellen Haile on 06-02-2025 Albumin/Globulin [Mass ratio] 1.8 {ratio} 0.9-2.4 [place] Serum or plasma alkaline rai sphatase measurementOrdered By: Maryellen Haile on 06-02-2025 ALP [Catalytic activity/Vol] 64 U/L 35-104 [place] Serum or plasma calcium zach urement (mass/volume)Ordered By: Maryellen Haile on 06-02-2025 Calcium [Mass/Vol] 9.0 mg/dL 7.6-11.0 [facility] Serum or plasma urea nitroge n measurement (mass/volume)Ordered By: Maryellen Haile on 06-02-2025 Urea nitrogen [Mass/Vol] 10 mg/dL 4-19 [place] Sodium levelOrdered By: Joni Haile on 06-02-2025 Sodium [Moles/Vol] 138 mmol/L 133-145 [facility] Squamous epithelial cells de tection in urine sediment by light microscopyOrdered By: Maryellen Haile on 06-02-2025 Epithelial cells.squamous LM Ql (Urine sed) 0 SEEN /hpf 5-10 [place] Total proteinOrdered By: Roseanne Haile on 06-02-2025 Protein [Mass/Vol] 6.0 g/dL 5.9-8.4 [facility] Urine clarityOrdered By: Roseanne Haile on 06-02-2025 Clarity (U) Clear Clear [place] Urine color determinationOrd ered By: Maryellen Haile on 06-02-2025 Color (U) Yellow Yellow [place] Urine glucose detectionOrder ed By: Maryellen Haile on 06-02-2025 Glucose Ql (U) Normal mg/dl Normal [place] Urine leukocyte esterase det ection by dipstickOrdered By: Maryellen Haile on 06-02-2025 Leukocyte esterase Test strip Ql (U) Negative Negative [place] Urine pHOrdered By: Maryellen alarcon on 06-02-2025 pH (U) 6.0 [pH] 5.0 - 8.0 [place] Urine testOrdered By: Maryellen Haile on 06-02-2025 HCG ( test) Ql (U) Negative [place] Comment on above: Very dilute urine sp ecimens, as indicated by a low specificgravity, may not contain medical billing representative levels of hCG. If is still suspected, a first morning urinespecimen should be collected 48 hours later and tested. Urine sediment bacteria coun t by microscopy (number/high power field)Ordered By: Maryellen Haile on 06-02-2025 Bacteria LM.HPF (Urine sed) [#/Area] 0 /[HPF] None Seen [place] Urine specific gravity measu rementOrdered By: Maryellen Haile on 06-02-2025 Specific gravity (U) [Rel density] 1.015 1.002-1.030 [place] Urine urobilinogen measureme ntOrdered By: Maryellen Haile on 06-02-2025 Urobilinogen Ql (U) Normal mg/dl Normal [facility] White blood cell (WBC) count Ordered By: Maryellen Haile on 06-02-2025 WBC (Bld) [#/Vol] 9.5 10*3/uL 4.4-11.0 [facility] White blood cell countOrdere d By: Maryellen Haile on 06-02-2025 White blood cell count 0 SEEN /hpf 0-5 [facility] CBC + DIFFon 06-01-2025 Baso # 0.03 x10EE3/UL Normal 0.00 - 0.10 [facility] Comment on above: Performed By: #### 2 [id number] ####[facility],[address] [place] [id number] Basophils/100 WBC (Bld) 0.4 % Normal 0.0 - 2.0 [facility] Comment on above: Performed By: #### 2 [id number] ####[facility],[address] [place] [address] CBC + DIFF Normal [facility] Comment on above: Result Comment: CBC- COMPLETE BLOOD COUNT Performed By: #### 2 [id number] ####[facility],[address] [place] [id number] EO # 0.20 x10EE3/UL Normal 0.00 - 0.50 [facility] Comment on above: Performed By: #### 2 [id number] ####[facility],[address] [place], [place] [id number] Eosinophils/100 WBC (Bld) 2.3 % Normal 0.0 - 7.0 [facility] Comment on above: Performed By: #### 2 [id number] ####[facility],[address] [place] [address] Erythrocyte distribution width (RBC) [Ratio] 14.1 % Normal 12.0 - 15.6 [facility] Comment on above: Performed By: #### 2 [id number] ####[facility],[address] [place] [address] Hematocrit (Bld) [Volume fraction] 37.2 % Normal 34.0 - 46.0 [facility] Comment on above: Performed By: #### 2 [id number] ####[facility],[address] [place], [place] [id number] Hemoglobin (Bld) [Mass/Vol] 12.7 g/dL Normal 12.0 - 16.0 [facility] Comment on above: Performed By: #### 2 81284 ####[facility],[address] [place], [place] [id number] Lymph # 1.96 x10EE3/UL Normal 0.80 - 2.80 [facility] Comment on above: Performed By: #### 2 97756 ####[facility],[address],[place] [address] Lymphocytes/100 WBC (Bld) 21.8 % Normal 20.0 - 45.0 [facility] Comment on above: Performed By: #### 2 60016 ####[facility],[address] [place] [address] MANUAL DIFF N/A Normal [facility] Comment on above: Performed By: #### 2 25308 ####[facility],[address] [place] [address] MCH (RBC) [Entitic mass] 33 pg Normal 27 - 33 [facility] Comment on above: Performed By: #### 2 03363 ####[facility],[address] [place] [address] MCHC 34 X10 3 Normal 32 - 36 [facility] Comment on above: Performed By: #### 2 44532 ####[facility],[address] [place] [address] MCV (RBC) [Entitic vol] 97 fL Normal 80 - 99 [facility] Comment on above: Performed By: #### 2 59734 ####[facility],[address] [place] [address] [place] # 0.86 x10EE3/UL Normal 0.20 - 1.00 [facility] Comment on above: Performed By: #### 2 42675 ####[facility],[address] [place] [address] MONOS % 9.6 % Normal 0.0 - 10.0 [facility] Comment on above: Performed By: #### 2 98357 ####[facility],[address] [place], [place] [id number] Morphology Efra (Bld) [Interp] N/A Normal [facility] Comment on above: Performed By: #### 2 08218 ####[facility],[address] [place] [address] Neut # 5.92 x10EE3/UL Normal 1.50 - 7.10 [facility] Comment on above: Performed By: #### 2 01007 ####[facility],[address] [place] [address] Neutrophils/100 WBC (Bld) 65.9 % Normal 46.0 - 76.0 [facility] Comment on above: Performed By: #### 2 11305 ####[facility],[address] [place], [place] [id number] PLATELET 388 x10EE3/UL Normal 150 - 450 [facility] Comment on above: Performed By: #### 2 63638 ####[place] [address] Platelet mean volume (Bld) [Entitic vol] 7.3 fL Normal 6.6 - 10.5 [facility] Comment on above: Result Comment: AUTO MATED DIFFERENTIAL Performed By: #### 2 78644 ####[place] [address] RBC 3.84 x 10EE6/UL Low 4.10 - 5.30 [facility] Comment on above: Performed By: #### 2 43705 ####[facility],[address] [place], [place] [id number] WBC 9.0 x 10EE3/UL Normal 4.5 - 10.8 [facility] Comment on above: Performed By: #### 2 98722 ####[facility],[address] [place], [place] [id number] CMP with eGFRon 06-01-2025 AGE 34 years Normal [facility] Comment on above: Performed By: #### 2 55083 ####[place] [id number] Albumin [Mass/Vol] 3.7 g/dL Normal 3.4 - 5.0 [facility] Comment on above: Performed By: #### 2 39035 ####[place] [id number] Albumin/Globulin [Mass ratio] 1.2 {ratio} Normal 0.9 - 1.6 [facility] Comment on above: Performed By: #### 2 45867 ####[facility],[address] [place] [address] ALK PHOS 68 U/L Normal 46 - 116 [facility] Comment on above: Performed By: #### 2 68329 ####[facility],[address] [place] [address] ALT [Catalytic activity/Vol] 22 U/L Normal 16 - 63 [facility] Comment on above: Performed By: #### 2 52657 ####[facility],[address] [place] [address] Anion gap [Moles/Vol] 13 mmol/L Normal 10 - 20 [facility] Comment on above: Performed By: #### 2 97980 ####[facility],[address] [place] [address] AST [Catalytic activity/Vol] 13 U/L Normal 13 - 39 [facility] Comment on above: Performed By: #### 2 70470 ####[facility],[address] [place], [place] [id number] B/C RATIO 12 ratio Normal 0 - 30 [facility] Comment on above: Performed By: #### 2 30618 ####[facility],[address] [place] [address] Bilirubin [Mass/Vol] 0.2 mg/dL Normal 0.2 - 1.0 [facility] Comment on above: Performed By: #### 2 98657 ####[facility],[address] [place] [address] Calcium [Mass/Vol] 9.2 mg/dL Normal 8.5 - 10.1 [facility] Comment on above: Performed By: #### 2 39105 ####[facility],[address] [place], [place] [id number] Chloride [Moles/Vol] 102 mmol/L Normal 98 - 107 [facility] Comment on above: Performed By: #### 2 41462 ####[facility],[address] [place], [place] [id number] CMP with eGFR Normal [facility] Comment on above: Result Comment: COMP REHENSIVE METABOLIC PANEL Performed By: #### 2 02922 ####[facility],[address] [place] [address] CO2 [Moles/Vol] 30.0 mmol/L Normal 21.0 - 32.0 [facility] Comment on above: Performed By: #### 2 78536 ####[facility],[address] [place] [address] Creatinine [Mass/Vol] 1.05 mg/dL High 0.55 - 1.02 [facility] Comment on above: Performed By: #### 2 45173 ####[facility],[address] [place] [address] eGFR 59 ML/MINUTE Low 60 - 999 [facility] Comment on above: Performed By: #### 2 64534 ####[facility],[address] [place], [place] [id number] GFR/1.73 sq M.predicted among non-blacks MDRD (S/P/Bld) [Vol rate/Area] mL/min/{1.73_m2} Normal 60 - 999 [facility] Comment on above: Result Comment: ACCO RDING TO THE NATIONAL KIDNEY DISEASE EDUCATION PROGRAM(NKDE), A NORMAL eGFRIS A VALUE GREATER THAN OR EQUAL TO 60 ML/MIN/1.73 SQ METERS.CHRONIC KIDNEY DISEASE: <60mL/MIN/1.73 SQ METERSKIDNEY FAILURE: <15mL/MIN/1.73 SQ METERSTHIS TEST SHOULD ONLY BE USED FOR PATIENTS 18 YEARS OF AGE AND OLDER. Performed By: #### 2 84736 ####[facility],[address] [place], [place] [id number] Globulin (S) [Mass/Vol] 3.2 g/dL Normal 1.5 - 3.8 [facility] Comment on above: Performed By: #### 2 43899 ####[facility],[address] [place] [address] Glucose [Mass/Vol] 91 mg/dL Normal 74 - 106 [facility] Comment on above: Performed By: #### 2 52174 ####[facility],[address] [place] [address] Potassium [Moles/Vol] 3.9 mmol/L Normal 3.5 - 5.1 [facility] Comment on above: Performed By: #### 2 20069 ####[facility],[address] [place] [address] Protein [Mass/Vol] 6.9 g/dL Normal 6.4 - 8.2 [facility] Comment on above: Performed By: #### 2 93537 ####[facility],[address] [place] [address] Sodium [Moles/Vol] 141 mmol/L Normal 136 - 145 [facility] Comment on above: Performed By: #### 2 99261 ####[facility],[address] [place] [address] Urea nitrogen [Mass/Vol] 13 mg/dL Normal 7 - 18 [facility] Comment on above: Performed By: #### 2 12401 ####[facility],[address] [place] [address] ED MED ADMINISTRATION DETAIL on 06-01-2025 ED MED ADMINISTRATION DETAIL Normal [facility] ED NURSES CLINICAL NOTEon ED NURSES CLINICAL NOTE Normal [facility] ED ORDER SHEET (CPOE ONLY)on 06-01-2025 ED ORDER SHEET (CPOE ONLY) Normal [facility] ED PHYSICIAN CLINICAL REPORT on 06-01-2025 ED PHYSICIAN CLINICAL REPORT Normal [facility] ED SUPER BILLon 06-01-2025 ED SUPER BILL Normal [facility] ED VISIT SUMMARYon 5 ED VISIT SUMMARY Normal [facility] ED VITALS FLOW SHEETon 06-01 ED VITALS FLOW SHEET Normal [facility] LACTATEon 06-01-2025 Lactate [Moles/Vol] 0.7 mmol/L Normal 0.4 - 2.0 [facility] Comment on above: Performed By: #### 2 07250 ####[facility],[address] [place], [place] [id number] PREG SERUM QUANTon 5 HCG QUANTITATIVE 3 Normal [facility] Comment on above: Result Comment: Refe rence Range: Male: <5 Female: Non: <5 1 - 7 days : 5 - 50 1 - 2 weeks: 50 - 500 2 - 3 weeks: 100 - 5000 3 - 4 weeks: 500 - 10,000 4 - 5 weeks: 1000 - 50,000 5 - 6 weeks: 10,000 - 100,000 6 - 8 weeks: 15,000 - 200,000 2 - 3 months: 10,000 - 100,000 2ND TRIMESTER 3000-50,000 3RD TRIMESTER 1000-50,000 Performed By: #### 2 09648 ####[facility],[address] [place], [place] [id number] SERUM QUALon 06-01 EXTERNAL QC DONE? YES Normal [facility] Comment on above: Performed By: #### 2 54775 ####[facility],[address] [place], [place] [id number] INTERNAL QC PASS Normal [facility] Comment on above: Performed By: #### 2 03541 ####[facility],[address] [place], [place] [id number] SER Positive Normal NEGATIVE [facility] Comment on above: Result Comment: A FA INT LINE APPEARED ON TEST LINE, BUT THQUANTITATIVE RESULT WAS ONLY 3 MIU/ML. Performed By: #### 2 44746 ####[facility],[address] [place] [address] TROPONINon 06-01-2025 HS TROPONIN <4.0 Normal 0.0 - 51.4 [facility] Comment on above: Performed By: #### 2 95000 ####[facility],[address] [place] [address] .Auto Diffon 05-30-2025 Basophil, Absolute 0.1 10 3/mcL Normal 0.0-0.3 [facility] Comment on above: Performed By: #### G FR, ADIFF, ANEU, CBC, BMP ####[address] [address] Basophils/100 WBC (Bld) 0.9 % Normal 0.0-2.5 [facility] Comment on above: Performed By: #### G FR, ADIFF, ANEU, CBC, BMP ####[address] [address] Eosinophil, Absolute 0.3 10 3/mcL Normal 0.0-0.7 [facility] Comment on above: Performed By: #### G FR, ADIFF, ANEU, CBC, BMP ####[address] [address] Eosinophils/100 WBC (Bld) 3.9 % Normal 0.0-6.0 [facility] Comment on above: Performed By: #### G FR, ADIFF, ANEU, CBC, BMP ####[address] [address] Lymphocyte, Absolute 2.2 10 3/mcL Normal 0.9-4.3 [facility] Comment on above: Performed By: #### G FR, ADIFF, ANEU, CBC, BMP ####[address] [address] Lymphocytes/100 WBC (Bld) 27.4 % Normal 20.0-40.0 [facility] Comment on above: Performed By: #### G FR, ADIFF, ANEU, CBC, BMP ####[address] [address] Monocyte, Absolute 0.9 10 3/mcL Normal 0.1-1.4 [facility] Comment on above: Performed By: #### G FR, ADIFF, ANEU, CBC, BMP ####[address] [address] Monocytes/100 WBC (Bld) 11.1 % Normal 2.0-13.0 [facility] Comment on above: Performed By: #### G FR, ADIFF, ANEU, CBC, BMP ####[address] [address] Neutrophils/100 WBC (Bld) 56.7 % Normal 50.0-75.0 [facility] Comment on above: Performed By: #### G FR, ADIFF, ANEU, CBC, BMP ####[address] [address] .GFRon 05-30-2025 Estimated Glomerular Filtration Rate 91 ml/min/1.73sqm Normal [facility] Comment on above: Result Comment: Stag [...] #### G FR, ADIFF, ANEU, CBC, BMP ####[address] [address] .NEUABSon 05-30-2025 Neutrophil, Absolute 4.5 10 3/mcL Normal 2.3-8.1 [facility] Comment on above: Performed By: #### G FR, ADIFF, ANEU, CBC, BMP ####[address] [address] BMPon 05-30-2025 BUN/Creatinine Ratio 10.6 ratio Normal 10.0-22.0 [facility] Comment on above: Performed By: #### G FR, ADIFF, ANEU, CBC, BMP ####[address] [address] Calcium [Mass/Vol] 9.1 mg/dL Normal 8.7-10.4 [facility] Comment on above: Performed By: #### G FR, ADIFF, ANEU, CBC, BMP ####[address] [address] Chloride [Moles/Vol] 111 mmol/L High 98-110 [facility] Comment on above: Performed By: #### G FR, ADIFF, ANEU, CBC, BMP ####[address] [address] CO2 [Moles/Vol] 26 mmol/L Normal 22-32 [facility] Comment on above: Performed By: #### G FR, ADIFF, ANEU, CBC, BMP ####[address] [address] Creatinine [Mass/Vol] 0.85 mg/dL Normal 0.50-1.20 [facility] Comment on above: Result Comment: Test ing performed on Parakey analyzer using enzymatic creatinine methodology. Performed By: #### G FR, ADIFF, ANEU, CBC, BMP ####[place] [address] Electrolyte Balance 6.0 mEq/L Normal 4.0-15.0 [facility] Comment on above: Performed By: #### G FR, ADIFF, ANEU, CBC, BMP ####[address] [address] Glucose [Mass/Vol] 90 mg/dL Normal 70-110 [facility] Comment on above: Performed By: #### G FR, ADIFF, ANEU, CBC, BMP ####[address] [address] Potassium [Moles/Vol] 4.2 mmol/L Normal 3.5-5.0 [facility] Comment on above: Performed By: #### G FR, ADIFF, ANEU, CBC, BMP ####[address] [address] Sodium [Moles/Vol] 143 mmol/L Normal 136-145 [facility] Comment on above: Performed By: #### G FR, ADIFF, ANEU, CBC, BMP ####[place] [address] Urea nitrogen [Mass/Vol] 9.0 mg/dL Normal 8.0-22.0 [facility] Comment on above: Performed By: #### G FR, ADIFF, ANEU, CBC, BMP ####[place] [address] CBCon 05-30-2025 Erythrocyte distribution width (RBC) [Ratio] 15.1 % Normal 11.5-15.5 [facility] Comment on above: Performed By: #### Deondre FR, ADIFF, ANEU, CBC, BMP ####[place] [address] Hematocrit (Bld) [Volume fraction] 38.6 % Normal 34.0-46.0 [facility] Comment on above: Performed By: #### G FR, ADIFF, ANEU, CBC, BMP ####[place] [address] Hgb 13.0 G/dL Normal 12.0-16.0 [facility] Comment on above: Performed By: #### Deondre FR, ADIFF, ANEU, CBC, BMP ####[place] [address] MCH (RBC) [Entitic mass] 33.0 pg Normal 27.0-33.0 [facility] Comment on above: Performed By: #### G FR, ADIFF, ANEU, CBC, BMP ####[place] [address] MCHC 33.7 G/dL Normal 32.0-36.0 [facility] Comment on above: Performed By: #### G FR, ADIFF, ANEU, CBC, BMP ####[place] [address] MCV (RBC) [Entitic vol] 97.8 fL Normal 80.0-99.0 [facility] Comment on above: Performed By: #### G FR, ADIFF, ANEU, CBC, BMP ####[place] [address] [address] [place] [address] Platelet 310 10 3/mcL Normal 150-450 [facility] Comment on above: Performed By: #### G FR, ADIFF, ANEU, CBC, BMP ####[place] [address] [address] [place] [address] Platelet mean volume (Bld) [Entitic vol] 7.9 fL Normal 6.6-10.5 [facility] Comment on above: Performed By: #### G FR, ADIFF, ANEU, CBC, BMP ####[address] [address] RBC 3.95 10 6/mcL Low 4.10-5.30 [facility] Comment on above: Performed By: #### G FR, ADIFF, ANEU, CBC, BMP ####[address] [address] WBC 7.9 10 3/mcL Normal 4.5-10.8 [facility] Comment on above: Performed By: #### G FR, ADIFF, ANEU, CBC, BMP ####[address] [address] LABORATORYOrdered By: SYSTEM SYSTEM on 05-30-2025 Basophils (Bld) [#/Vol] 0.1 103/mcL Normal 0.0 - 0.3 10^3/mcL AH Workflow SS Basophils/100 WBC (Bld) 0.9 % Normal 0.0 - 2.5 % AH Workflow SS Calcium [Mass/Vol] 9.1 mg/dL Normal 8.7 - 10. 4 mg/dL AH ADM SS Chloride [Moles/Vol] 111 mmol/L High 98 - 11 0 mEq/L AH ADM SS CO2 [Moles/Vol] 26 mmol/L Normal 22 - 32 mEq/L AH ADM SS Creatinine [Mass/Vol] 0.85 mg/dL Normal 0.50 - 1.20 mg/dL ADM SS Comment on above: Interpretive Data: T esting performed on Parakey analyzer using enzymatic creatinine methodology. Electrolyte Balance 6.0 mEq/L Normal 4.0 - 15 .0 mEq/L AH ADM SS Eosinophils (Bld) [#/Vol] 0.3 103/mcL [...] 4.3 10^3/mcL Workflow SS Lymphocytes/100 WBC (Bld) 27.4 % [...] 4.5 103/mcL Normal 2.3 - 8.1 10^3/mcL Workflow SS Neutrophils/100 WBC (Bld) 56.7 % Normal 50.0 - 75.0 % AH Workflow SS Platelet mean volume (Bld) [Entitic vol] 7.9 fL Normal 6.6 - 10.5 fL AH Workflow SS Platelets (Bld) [#/Vol] 310 103/mcL [...] 10.6 ratio Normal 10.0 - 22.0 ratio AH ADM SS WBC (Bld) [#/Vol] 7.9 103/mcL Normal 4.5 - 10.8 10^3/mcL Workflow SS .Auto Diffon 05-29-2025 Basophil, Absolute 0.1 10 3/mcL Normal 0.0-0.3 [facility] Comment on above: Performed By: #### C BC, ADIFF, BMP, GFR, ANEU ####[address] [address] Basophils/100 WBC (Bld) 1.0 % Normal 0.0-2.5 [facility] Comment on above: Performed By: #### C BC, ADIFF, BMP, GFR, ANEU ####[facility] [place] [address] Eosinophil, Absolute 0.2 10 3/mcL Normal 0.0-0.7 [facility] Comment on above: Performed By: #### C BC, ADIFF, BMP, GFR, ANEU ####[address] [address] Eosinophils/100 WBC (Bld) 2.4 % Normal 0.0-6.0 [facility] Comment on above: Performed By: #### C BC, ADIFF, BMP, GFR, ANEU ####[address] [address] Lymphocyte, Absolute 1.7 10 3/mcL Normal 0.9-4.3 [facility] Comment on above: Performed By: #### C BC, ADIFF, BMP, GFR, ANEU ####[address] [address] Lymphocytes/100 WBC (Bld) 20.8 % Normal 20.0-40.0 [facility] Comment on above: Performed By: #### C BC, ADIFF, BMP, GFR, ANEU ####[address] [address] Monocyte, Absolute 0.6 10 3/mcL Normal 0.1-1.4 [facility] Comment on above: Performed By: #### C BC, ADIFF, BMP, GFR, ANEU ####[address] [address] Monocytes/100 WBC (Bld) 7.7 % Normal 2.0-13.0 [facility] Comment on above: Performed By: #### C BC, ADIFF, BMP, GFR, ANEU ####[address] [address] Neutrophils/100 WBC (Bld) 68.1 % Normal 50.0-75.0 [facility] Comment on above: Performed By: #### C BC, ADIFF, BMP, GFR, ANEU ####[address] [address] .GFRon 05-29-2025 Estimated Glomerular Filtration Rate 99 ml/min/1.73sqm Normal [facility] Comment on above: Result Comment: Stag [...] #### C BC, ADIFF, BMP, GFR, ANEU ####[address] [address] .NEUABSon 05-29-2025 Neutrophil, Absolute 5.7 10 3/mcL Normal 2.3-8.1 [facility] Comment on above: Performed By: #### C BC, ADIFF, BMP, GFR, ANEU ####[place] [address] BMPon 05-29-2025 BUN/Creatinine Ratio 6.3 ratio Low 10.0-22.0 [facility] Comment on above: Performed By: #### C BC, ADIFF, BMP, GFR, ANEU ####[place] [address] Calcium [Mass/Vol] 9.4 mg/dL Normal 8.7-10.4 [facility] Comment on above: Performed By: #### C BC, ADIFF, BMP, GFR, ANEU ####[place] [address] Chloride [Moles/Vol] 110 mmol/L Normal 98-110 [facility] Comment on above: Performed By: #### C BC, ADIFF, BMP, GFR, ANEU ####[place] [address] CO2 [Moles/Vol] 23 mmol/L Normal 22-32 [facility] Comment on above: Performed By: #### C BC, ADIFF, BMP, GFR, ANEU ####[place] [address] Creatinine [Mass/Vol] 0.79 mg/dL Normal 0.50-1.20 [facility] Comment on above: Result Comment: Test ing performed on Parakey analyzer using enzymatic creatinine methodology. Performed By: #### C BC, ADIFF, BMP, GFR, ANEU ####[place] [address] Electrolyte Balance 9.0 mEq/L Normal 4.0-15.0 [facility] Comment on above: Performed By: #### C BC, ADIFF, BMP, GFR, ANEU ####[place] [address] Glucose [Mass/Vol] 98 mg/dL Normal 70-110 [facility] Comment on above: Performed By: #### C BC, ADIFF, BMP, GFR, ANEU ####[place] [address] Potassium [Moles/Vol] 4.2 mmol/L Normal 3.5-5.0 [facility] Comment on above: Performed By: #### C BC, ADIFF, BMP, GFR, ANEU ####[place] [address] Sodium [Moles/Vol] 142 mmol/L Normal 136-145 [facility] Comment on above: Performed By: #### C BC, ADIFF, BMP, GFR, ANEU ####[place] [address] Urea nitrogen [Mass/Vol] 5.0 mg/dL Low 8.0-22.0 [facility] Comment on above: Performed By: #### C BC, ADIFF, BMP, GFR, ANEU ####[place] [address] CBCon 05-29-2025 Erythrocyte distribution width (RBC) [Ratio] 15.8 % High 11.5-15.5 [facility] Comment on above: Performed By: #### C BC, ADIFF, BMP, GFR, ANEU ####[place] [address] Hematocrit (Bld) [Volume fraction] 39.3 % Normal 34.0-46.0 [facility] Comment on above: Performed By: #### C BC, ADIFF, BMP, GFR, ANEU ####[place] [address] Hgb 13.2 G/dL Normal 12.0-16.0 [facility] Comment on above: Performed By: #### C BC, ADIFF, BMP, GFR, ANEU ####[address] [address] MCH (RBC) [Entitic mass] 33.0 pg Normal 27.0-33.0 [facility] Comment on above: Performed By: #### C BC, ADIFF, BMP, GFR, ANEU ####[place] [address] MCHC 33.6 G/dL Normal 32.0-36.0 [facility] Comment on above: Performed By: #### C BC, ADIFF, BMP, GFR, ANEU ####[place] [address] MCV (RBC) [Entitic vol] 98.2 fL Normal 80.0-99.0 [facility] Comment on above: Performed By: #### C BC, ADIFF, BMP, GFR, ANEU ####[place] [address] Platelet 316 10 3/mcL Normal 150-450 [facility] Comment on above: Performed By: #### C BC, ADIFF, BMP, GFR, ANEU ####[place] [address] Platelet mean volume (Bld) [Entitic vol] 7.8 fL Normal 6.6-10.5 [facility] Comment on above: Performed By: #### C BC, ADIFF, BMP, GFR, ANEU ####[place] [address] RBC 4.00 10 6/mcL Low 4.10-5.30 [facility] Comment on above: Performed By: #### C BC, ADIFF, BMP, GFR, ANEU ####[place] [address] WBC 8.3 10 3/mcL Normal 4.5-10.8 [facility] Comment on above: Performed By: #### C BC, ADIFF, BMP, GFR, ANEU ####[place] [address] CURon 05-29-2025 CUR Normal [facility] LABORATORYOrdered By: SYSTEM SYSTEM on 05-29-2025 Basophils (Bld) [#/Vol] 0.1 103/mcL Normal 0.0 - 0.3 10^3/mcL Workflow SS Basophils/100 WBC (Bld) 1.0 % Normal 0.0 - 2.5 % AH Workflow SS Calcium [Mass/Vol] 9.4 mg/dL Normal 8.7 - 10. 4 mg/dL ADM SS Chloride [Moles/Vol] 110 mmol/L Normal 98 - 11 0 mEq/L ADM SS CO2 [Moles/Vol] 23 mmol/L Normal 22 - 32 mEq/L ADM SS Creatinine [Mass/Vol] 0.79 mg/dL Normal 0.50 - 1.20 mg/dL ADM SS Comment on above: Interpretive Data: T esting performed on Parakey analyzer using enzymatic creatinine methodology. Electrolyte Balance [...] 2024 Bacteria identified Cx Nom (U) Normal [facility] Comment on above: Performed By: #### 2 09734 ####[facility],[address] [place] [address] .Auto Diffon 05-28-2025 Basophil, Absolute 0.1 10 3/mcL Normal 0.0-0.3 [facility] Comment on above: Performed By: #### G FR, ANEU, CBC, ADIFF, CMP ####[address] [address] Basophils/100 WBC (Bld) 1.5 % Normal 0.0-2.5 [facility] Comment on above: Performed By: #### G FR, ANEU, CBC, ADIFF, CMP ####[address] [address] Eosinophil, Absolute 0.2 10 3/mcL Normal 0.0-0.7 [facility] Comment on above: Performed By: #### G FR, ANEU, CBC, ADIFF, CMP ####[address] [address] Eosinophils/100 WBC (Bld) 2.6 % Normal 0.0-6.0 [facility] Comment on above: Performed By: #### G FR, ANEU, CBC, ADIFF, CMP ####[address] [address] Lymphocyte, Absolute 2.2 10 3/mcL Normal 0.9-4.3 [facility] Comment on above: Performed By: #### G FR, ANEU, CBC, ADIFF, CMP ####[address] [address] Lymphocytes/100 WBC (Bld) 30.4 % Normal 20.0-40.0 [facility] Comment on above: Performed By: #### G FR, ANEU, CBC, ADIFF, CMP ####[address] [address] Monocyte, Absolute 0.6 10 3/mcL Normal 0.1-1.4 [facility] Comment on above: Performed By: #### G FR, ANEU, CBC, ADIFF, CMP ####[address] [address] Monocytes/100 WBC (Bld) 8.1 % Normal 2.0-13.0 [facility] Comment on above: Performed By: #### G FR, ANEU, CBC, ADIFF, CMP ####[address] [address] Neutrophils/100 WBC (Bld) 57.4 % Normal 50.0-75.0 [facility] Comment on above: Performed By: #### G FR, ANEU, CBC, ADIFF, CMP ####[place] [address] .GFRon 05-28-2025 Estimated Glomerular Filtration Rate 88 ml/min/1.73sqm Normal [facility] Comment on above: Result Comment: Stag [...] #### G FR, ANEU, CBC, ADIFF, CMP ####[place] [address] .NEUABSon 05-28-2025 Neutrophil, Absolute 4.2 10 3/mcL Normal 2.3-8.1 [facility] Comment on above: Performed By: #### G FR, ANEU, CBC, ADIFF, CMP ####[place] [address] CBCon 05-28-2025 Erythrocyte distribution width (RBC) [Ratio] 15.2 % Normal 11.5-15.5 [facility] Comment on above: Performed By: #### G FR, ANEU, CBC, ADIFF, CMP ####[place] [address] Hematocrit (Bld) [Volume fraction] 34.4 % Normal 34.0-46.0 [facility] Comment on above: Performed By: #### G FR, ANEU, CBC, ADIFF, CMP ####[place] [address] Hgb 11.7 G/dL Low 12.0-16.0 [facility] Comment on above: Performed By: #### G FR, ANEU, CBC, ADIFF, CMP ####[place] [address] MCH (RBC) [Entitic mass] 33.2 pg High 27.0-33.0 [facility] Comment on above: Performed By: #### G FR, ANEU, CBC, ADIFF, CMP ####[place] [address] MCHC 34.0 G/dL Normal 32.0-36.0 [facility] Comment on above: Performed By: #### G FR, ANEU, CBC, ADIFF, CMP ####[place] [address] MCV (RBC) [Entitic vol] 97.8 fL Normal 80.0-99.0 [facility] Comment on above: Performed By: #### G FR, ANEU, CBC, ADIFF, CMP ####[place] [address] Platelet 313 10 3/mcL Normal 150-450 [facility] Comment on above: Performed By: #### G FR, ANEU, CBC, ADIFF, CMP ####[place] [address] Platelet mean volume (Bld) [Entitic vol] 7.0 fL Normal 6.6-10.5 [facility] Comment on above: Performed By: #### G FR, ANEU, CBC, ADIFF, CMP ####[place] [address] RBC 3.52 10 6/mcL Low 4.10-5.30 [facility] Comment on above: Performed By: #### G FR, ANEU, CBC, ADIFF, CMP ####[place] [address] WBC 7.4 10 3/mcL Normal 4.5-10.8 [facility] Comment on above: Performed By: #### G FR, ANEU, CBC, ADIFF, CMP ####[place] [address] CMPon 05-28-2025 Albumin Level 3.1 G/dL Low 3.2-4.8 [facility] Comment on above: Performed By: #### G FR, ANEU, CBC, ADIFF, CMP ####[place] [address] Albumin/Globulin [Mass ratio] 1.3 {ratio} Normal 0.9-1.6 [facility] Comment on above: Performed By: #### G FR, ANEU, CBC, ADIFF, CMP ####[place] [address] ALP [Catalytic activity/Vol] 59 U/L Normal 38-126 [facility] Comment on above: Performed By: #### G FR, ANEU, CBC, ADIFF, CMP ####[place] [address] ALT [Catalytic activity/Vol] 10 U/L Normal 10-49 [facility] Comment on above: Performed By: #### G FR, ANEU, CBC, ADIFF, CMP ####[place] [address] AST [Catalytic activity/Vol] 15 U/L Normal 8-34 [facility] Comment on above: Performed By: #### G FR, ANEU, CBC, ADIFF, CMP ####[place] [address] Bili Total 0.30 mg/dL Normal 0.20-1.20 [facility] Comment on above: Result Comment: Use of this assay is not recommended for patients undergoing treatment with eltrombopag due to the potential for falsely elevated results. Performed By: #### G FR, ANEU, CBC, ADIFF, CMP ####[place] [address] BUN/Creatinine Ratio 12.6 ratio Normal 10.0-22.0 [facility] Comment on above: Performed By: #### G FR, ANEU, CBC, ADIFF, CMP ####[address] [address] Calcium [Mass/Vol] 8.5 mg/dL Low 8.7-10.4 [facility] Comment on above: Performed By: #### G FR, ANEU, CBC, ADIFF, CMP ####[address] [address] Chloride [Moles/Vol] 111 mmol/L High 98-110 [facility] Comment on above: Performed By: #### G FR, ANEU, CBC, ADIFF, CMP ####[address] [address] CO2 [Moles/Vol] 24 mmol/L Normal 22-32 [facility] Comment on above: Performed By: #### G FR, ANEU, CBC, ADIFF, CMP ####[place] [address] Creatinine [Mass/Vol] 0.87 mg/dL Normal 0.50-1.20 [facility] Comment on above: Result Comment: Test ing performed on Parakey analyzer using enzymatic creatinine methodology. Performed By: #### G FR, ANEU, CBC, ADIFF, CMP ####[address] [address] Electrolyte Balance 8.0 mEq/L Normal 4.0-15.0 [facility] Comment on above: Performed By: #### G FR, ANEU, CBC, ADIFF, CMP ####[address] [address] Globulin 2.4 G/dL Low 2.5-4.2 [facility] Comment on above: Performed By: #### G FR, ANEU, CBC, ADIFF, CMP ####[address] [address] Glucose [Mass/Vol] 91 mg/dL Normal 70-110 [facility] Comment on above: Performed By: #### G FR, ANEU, CBC, ADIFF, CMP ####[address] [address] Potassium [Moles/Vol] 3.6 mmol/L Normal 3.5-5.0 [facility] Comment on above: Performed By: #### G FR, ANEU, CBC, ADIFF, CMP ####[address] [address] Sodium [Moles/Vol] 143 mmol/L Normal 136-145 [facility] Comment on above: Performed By: #### G FR, ANEU, CBC, ADIFF, CMP ####[address] [address] Total Protein 5.5 G/dL Low 5.7-8.2 [facility] Comment on above: Performed By: #### G FR, ANEU, CBC, ADIFF, CMP ####[address] [address] Urea nitrogen [Mass/Vol] 11.0 mg/dL Normal 8.0-22.0 [facility] Comment on above: Performed By: #### G FR, ANEU, CBC, ADIFF, CMP ####[address] [address] LABORATORYOrdered By: SYSTEM SYSTEM on 05-28-2025 Albumin [...] above: Interpretive Data: T esting performed on Parakey analyzer using enzymatic creatinine methodology. Electrolyte Balance [...] Code [facility] Comment on above: Interpretive Data: Charlie ambrosio [employer] (CHEST, 1992, 102:312S-25S) [...] 05-28-2025 Magnesium [Mass/Vol] 1.9 mg/dL Normal 1.6-2.4 [facility] Comment on above: Performed By: #### P RO, MG ####[place] [address] PROon 05-28-2025 INR Coag (PPP) [Relative time] 1.1 {INR} Normal [facility] Comment on above: Result Comment: [employer] (CHEST, 1992, 102:312S-25S)recommended therapeutic range for oral anticoagulant therapy is:LOW RISK: Prophylaxis of venous thrombosis INR: 2.0-3.0 Treatment of pulmonary embolism 2.0-3.0 Prevention of systemic embolism 2.0-3.0HIGH RISK: Mechanical prosthetic valves 2.5-3.5 Performed By: #### P RO, MG ####[address] [address] PT Coag (PPP) [Time] 12.8 s Normal 9.0-14.4 [facility] Comment on above: Result Comment: Effe ctive 05/17/08, Protime results may be affected by some antibiotics (i.e. Ciprofloxacin, Azithromycin, Bactrim) which may potentiate the action of oral anticoagulants, with further increases in Protime/INR. Performed By: #### P RO, MG ####[address] [address] .Auto Diffon 05-27-2025 Basophil, Absolute 0.1 10 3/mcL Normal 0.0-0.3 [facility] Comment on above: Performed By: #### L AC, ADIFF, GFR, CBC, ANEU, BMP, MDW ####[place] [address] Basophils/100 WBC (Bld) 0.8 % Normal 0.0-2.5 [facility] Comment on above: Performed By: #### L AC, ADIFF, GFR, CBC, ANEU, BMP, MDW ####[place] [address] Eosinophil, Absolute 0.1 10 3/mcL Normal 0.0-0.7 [facility] Comment on above: Performed By: #### L AC, ADIFF, GFR, CBC, ANEU, BMP, MDW ####[place] [address] Eosinophils/100 WBC (Bld) 1.4 % Normal 0.0-6.0 [facility] Comment on above: Performed By: #### L AC, ADIFF, GFR, CBC, ANEU, BMP, MDW ####[place] [address] Lymphocyte, Absolute 2.4 10 3/mcL Normal 0.9-4.3 [facility] Comment on above: Performed By: #### L AC, ADIFF, GFR, CBC, ANEU, BMP, MDW ####[address] [address] Lymphocytes/100 WBC (Bld) 22.7 % Normal 20.0-40.0 [facility] Comment on above: Performed By: #### L AC, ADIFF, GFR, CBC, ANEU, BMP, MDW ####[place] [id number] Monocyte, Absolute 0.7 10 3/mcL Normal 0.1-1.4 [facility] Comment on above: Performed By: #### L AC, ADIFF, GFR, CBC, ANEU, BMP, MDW ####[address] [address] Monocytes/100 WBC (Bld) 6.5 % Normal 2.0-13.0 [facility] Comment on above: Performed By: #### L AC, ADIFF, GFR, CBC, ANEU, BMP, MDW ####[address] [address] Neutrophils/100 WBC (Bld) 68.6 % Normal 50.0-75.0 [facility] Comment on above: Performed By: #### L AC, ADIFF, GFR, CBC, ANEU, BMP, MDW ####[place] [address] .GFRon 05-27-2025 Estimated Glomerular Filtration Rate 81 ml/min/1.73sqm Normal [facility] Comment on above: Result Comment: Stag [...] AC, ADIFF, GFR, CBC, ANEU, BMP, MDW ####[address] [address] .MDWon 05-27-2025 Monocyte Distribution Width 20.07 High 0.00-20.00 [facility] Comment on above: Result Comment: For adults in ED, MDW>20.0 may be associated with a higher risk of sepsis during the first 12hrs of hospital admission Performed By: #### L AC, ADIFF, GFR, CBC, ANEU, BMP, MDW ####[place] [id number] .NEUABSon 05-27-2025 Neutrophil, Absolute 7.3 10 3/mcL Normal 2.3-8.1 [facility] Comment on above: Performed By: #### L AC, ADIFF, GFR, CBC, ANEU, BMP, YOUNG ####[address] [address] BMPon 05-27-2025 BUN/Creatinine Ratio 12.8 ratio Normal 10.0-22.0 [facility] Comment on above: Performed By: #### L AC, ADIFF, GFR, CBC, ANEU, BMP, YOUNG ####[place] [address] Calcium [Mass/Vol] 9.1 mg/dL Normal 8.7-10.4 [facility] Comment on above: Performed By: #### L AC, ADIFF, GFR, CBC, ANEU, BMP, YOUNG ####[place] [address] Chloride [Moles/Vol] 111 mmol/L High 98-110 [facility] Comment on above: Performed By: #### L AC, ADIFF, GFR, CBC, ANEU, YOUNG FREGOSO ####[place] [address] CO2 [Moles/Vol] 24 mmol/L Normal 22-32 [facility] Comment on above: Performed By: #### L AC, ADIFF, GFR, CBC, ANEU, ZENOBIA, YOUNG ####[place] [address] Creatinine [Mass/Vol] 0.94 mg/dL Normal 0.50-1.20 [facility] Comment on above: Result Comment: Test ing performed on Parakey analyzer using enzymatic creatinine methodology. Performed By: #### L AC, ADIFF, GFR, CBC, ANEU, BMP, YOUNG ####[place] [address] Electrolyte Balance 6.0 mEq/L Normal 4.0-15.0 [facility] Comment on above: Performed By: #### L AC, ADIFF, GFR, CBC, ANEU, BMP, YOUNG ####[place] [address] Glucose [Mass/Vol] 95 mg/dL Normal 70-110 [facility] Comment on above: Performed By: #### L AC, ADIFF, GFR, CBC, ANEU, YOUNG FREGOSO ####[place] [address] Potassium [Moles/Vol] 4.3 mmol/L Normal 3.5-5.0 [facility] Comment on above: Performed By: #### L AC, ADIFF, GFR, CBC, ANEUZENOBIA MDW ####[place] [address] Sodium [Moles/Vol] 141 mmol/L Normal 136-145 [facility] Comment on above: Performed By: #### L AC, ADIFF, GFR, CBC, ANEUZENOBIA MDW ####[place] [address] Urea nitrogen [Mass/Vol] 12.0 mg/dL Normal 8.0-22.0 [facility] Comment on above: Performed By: #### L AC, ADIFF, GFR, CBC, ZENOBIA LEVI MDW ####[place] [address] CBCon 05-27-2025 Erythrocyte distribution width (RBC) [Ratio] 15.4 % Normal 11.5-15.5 [facility] Comment on above: Performed By: #### L AC, ADIFF, GFR, CBC, GURMEET, YOUNG FREGOSO ####[place] [address] Hematocrit (Bld) [Volume fraction] 40.0 % Normal 34.0-46.0 [facility] Comment on above: Performed By: #### L AC, ADIFF, GFR, CBC, ZENOBIA LEVI MDW ####[place] [address] Hgb 13.4 G/dL Normal 12.0-16.0 [facility] Comment on above: Performed By: #### L AC, ADIFF, GFR, CBC, ZENOBIA LEVI MDW ####[place] [address] MCH (RBC) [Entitic mass] 32.6 pg Normal 27.0-33.0 [facility] Comment on above: Performed By: #### L AC, ADIFF, GFR, CBC, ANEU, BMP, MDW ####[place] [address] MCHC 33.4 G/dL Normal 32.0-36.0 [facility] Comment on above: Performed By: #### L AC, ADIFF, GFR, CBC, ANEU, BMP, MDW ####[place] [address] MCV (RBC) [Entitic vol] 97.3 fL Normal 80.0-99.0 [facility] Comment on above: Performed By: #### L AC, ADIFF, GFR, CBC, ANEU, BMP, MDW ####[place] [address] Platelet 357 10 3/mcL Normal 150-450 [facility] Comment on above: Performed By: #### L AC, ADIFF, GFR, CBC, ANEU, BMP, MDW ####[place] [address] Platelet mean volume (Bld) [Entitic vol] 7.2 fL Normal 6.6-10.5 [facility] Comment on above: Performed By: #### L AC, ADIFF, GFR, CBC, ANEU, BMP, MDW ####[place] [address] RBC 4.11 10 6/mcL Normal 4.10-5.30 [facility] Comment on above: Performed By: #### L AC, ADIFF, GFR, CBC, ANEU, BMP, MDW ####[place] [address] WBC 10.6 10 3/mcL Normal 4.5-10.8 [facility] Comment on above: Performed By: #### L AC, ADIFF, GFR, CBC, ANEU, BMP, MDW ####[place] [address] CBLon 05-27-2025 CBL Normal [facility] ED MED ADMINISTRATION DETAIL on 05-27-2025 ED MED ADMINISTRATION DETAIL Normal [facility] ED NURSES CLINICAL NOTEon ED NURSES CLINICAL NOTE Normal [facility] ED ORDER SHEET (CPOE ONLY)on 05-27-2025 ED ORDER SHEET (CPOE ONLY) Normal [facility] ED PHYSICIAN CLINICAL REPORT on 05-27-2025 ED PHYSICIAN CLINICAL REPORT Normal [facility] ED SUPER BILLon 05-27-2025 ED SUPER BILL Normal [facility] ED VISIT SUMMARYon ED VISIT SUMMARY Normal [facility] ED VITALS FLOW SHEETon 05-27 ED VITALS FLOW SHEET Normal [facility] LABORATORYOrdered By: Bassam Dixon on 05-27-2025 Appearance (U) Cloudy *ABN* (05/27/25 6:16 PM) Invalid Interpretation Code Clear AH Auto Urine SS Bacteria LM.HPF (Urine sed) [#/Area] 1 /[HPF] Invalid Interpretation Code Negative AH Auto Urine SS Bilirubin Ql (U) Negative (05/27/25 6:16 PM) Normal Neg-Trace AH Auto Urine SS [...] (Urine sed) [#/Area] Rare /HPF Normal 0-5 AH Auto Urine SS LABORATORYOrdered By: Antonietta Bustamante on 05-27-2025 Beta HCG ( test) Ql (U) Negative (05/27/25 5:04 PM) [facility] Work Phone: LACon 05-27-2025 Lactic Acid Lvl 0.7 mmol/L Normal 0.5-2.2 [facility] Comment on above: Performed By: #### L AC, ADIFF, GFR, CBC, ANEU, BMP, MDW ####[address] [address] No Panel Informationon 05-27 Microscopic examination of blood, culture Culture has been received in lab and is no growth to date. Routine cultures are held for 5 days. [facility] Work Phone: Microscopic examination of blood, culture Culture has been received in lab and is no growth to date. Routine cultures are held for 5 days. [facility] Work Phone: Culture Urine 10,000 - 50,000 cfu/ ml Mixed growth consistent with normal urogenital blanco. [facility] Work Phone: UAon 05-27-2025 Color (U) Yellow Normal [facility] Comment on above: Performed By: #### U A, UAMIC ####[place] [id number] [address] [place] [address] Glucose (U) [Mass/Vol] Negative Normal Negative [facility] Comment on above: Performed By: #### U A, UAMIC ####[address] [address] Ketones Ql (U) Negative Normal Neg-Trace [facility] Comment on above: Performed By: #### U A, UAMIC ####[place] [address] UA Appear Cloudy Abnormal Clear [facility] Comment on above: Performed By: #### U A, UAMIC ####[place] [address] UA Blood Moderate Abnormal Neg-Trace [facility] Comment on above: Performed By: #### U A, UAMIC ####[place] [address] UA Leuk Est Large Abnormal Negative [facility] Comment on above: Performed By: #### U A, UAMIC ####[place] [address] UA Nitrite Positive Abnormal Negative [facility] Comment on above: Performed By: #### U A, UAMIC ####[place] [address] UA pH >=8.5 Abnormal 5.0 - 8.0 [facility] Comment on above: Performed By: #### U A, UAMIC ####[place] [address] UA Protein 100 mg/dL Abnormal Negative [facility] Comment on above: Performed By: #### U A, UAMIC ####[place] [address] UA Spec Grav 1.010 Normal 1.006-1.029 [facility] Comment on above: Performed By: #### U A, UAMIC ####[place] [address] UA Specimen Type Hilario Catheter Normal [facility] Comment on above: Performed By: #### U A, UAMIC ####[place] [address] UA Urobilinogen 0.2 E.U./dL Normal 0.2-1.0 [facility] Comment on above: Performed By: #### U A, UAMIC ####[address] [place] [address] Urobilinogen (U) [Mass/Vol] Negative Normal Neg-Trace [facility] Comment on above: Performed By: #### U A, UAMIC ####[place] [address] Color (U) Yellow Normal [facility] Comment on above: Performed By: #### U A, UAMIC ####[place] [address] Glucose (U) [Mass/Vol] Negative Normal Negative [facility] Comment on above: Performed By: #### U A, UAMIC ####[place] [address] Ketones Ql (U) Negative Normal Neg-Trace [facility] Comment on above: Performed By: #### U A, UAMIC ####[place] [address] UA Appear Cloudy Abnormal Clear [facility] Comment on above: Performed By: #### U A, UAMIC ####[place] [address] UA Blood Negative Normal Neg-Trace [facility] Comment on above: Performed By: #### U A, UAMIC ####[place] [address] UA Leuk Est Trace Normal Negative [facility] Comment on above: Performed By: #### U A, UAMIC ####[place] [address] UA Nitrite Negative Normal Negative [facility] Comment on above: Performed By: #### U A, UAMIC ####[place] [address] UA pH 8.5 Abnormal 5.0 - 8.0 [facility] Comment on above: Performed By: #### U A, UAMIC ####[place] [address] UA Protein Trace Normal Negative [facility] Comment on above: Performed By: #### U A, UAMIC ####[place] [address] UA Spec Grav 1.020 Normal 1.006-1.029 [facility] Comment on above: Performed By: #### U A, UAMIC ####[place] [address] UA Specimen Type Clean Catch Normal [facility] Comment on above: Performed By: #### U A, UAMIC ####[place] [address] UA Urobilinogen 1.0 E.U./dL Normal 0.2-1.0 [facility] Comment on above: Performed By: #### U A, UAMIC ####[place] [address] Urobilinogen (U) [Mass/Vol] Negative Normal Neg-Trace [facility] Comment on above: Performed By: #### U A, UAMIC ####[place] [address] UAMICon 05-27-2025 UA Bacteria 1+ /hpf Abnormal Negative [facility] Comment on above: Performed By: #### U A, UAMIC ####[place] [address] UA Crenated RBCs 0-2 Abnormal [facility] Comment on above: Performed By: #### U A, UAMIC ####[place] [address] UA RBC 3-5 Abnormal 0-2 [facility] Comment on above: Performed By: #### U A, UAMIC ####[place] [address] UA Squam Epithelial 0-2 Normal 0-20 [facility] Comment on above: Performed By: #### U A, UAMIC ####[place] [address] UA Trip Rai Crystals 3+ /hpf Normal [facility] Comment on above: Performed By: #### U A, UAMIC ####[place] [address] UA WBC 10-20 Abnormal 0-5 [facility] Comment on above: Performed By: #### U A, UAMIC ####[address], [place] [address] UA RBC Rare Normal 0-2 [facility] Comment on above: Performed By: #### U A, UAMIC ####[address] [address] UA Squam Epithelial 0-2 Normal 0-20 [facility] Comment on above: Performed By: #### U A, UAMIC ####[place] [id number] UA WBC Rare Normal 0-5 [facility] Comment on above: Performed By: #### U A, UAMIC ####[place] [address] CBC + DIFFon 05-26-2025 Baso # 0.04 x10EE3/UL Normal 0.00 - 0.10 [facility] Comment on above: Performed By: #### 2 33528 ####[facility],[address] [place] [address] Basophils/100 WBC (Bld) 0.4 % Normal 0.0 - 2.0 [facility] Comment on above: Performed By: #### 2 90477 ####[facility],[address] [place] [address] CBC + DIFF Normal [facility] Comment on above: Result Comment: CBC- COMPLETE BLOOD COUNT Performed By: #### 2 24102 ####[facility],[address] [place] [address] EO # 0.28 x10EE3/UL Normal 0.00 - 0.50 [facility] Comment on above: Performed By: #### 2 64999 ####[facility],[address] [place] [address] Eosinophils/100 WBC (Bld) 3.1 % Normal 0.0 - 7.0 [facility] Comment on above: Performed By: #### 2 02507 ####[facility],[address] [place], [place] [id number] Erythrocyte distribution width (RBC) [Ratio] 14.1 % Normal 12.0 - 15.6 [facility] Comment on above: Performed By: #### 2 34318 ####[facility],[address] [place] [address] Hematocrit (Bld) [Volume fraction] 34.1 % Normal 34.0 - 46.0 [facility] Comment on above: Performed By: #### 2 60876 ####[facility],[address] [place] [address] Hemoglobin (Bld) [Mass/Vol] 12.1 g/dL Normal 12.0 - 16.0 [facility] Comment on above: Performed By: #### 2 49347 ####[facility],[address] [place] [address] Lymph # 2.66 x10EE3/UL Normal 0.80 - 2.80 [facility] Comment on above: Performed By: #### 2 97930 ####[facility],[address] [place] [address] Lymphocytes/100 WBC (Bld) 29.1 % Normal 20.0 - 45.0 [facility] Comment on above: Performed By: #### 2 84382 ####[facility],[address] [place], [place] [id number] MANUAL DIFF N/A Normal [facility] Comment on above: Performed By: #### 2 31844 ####[facility],[address] [place], [place] [id number] MCH (RBC) [Entitic mass] 34 pg High 27 - 33 [facility] Comment on above: Performed By: #### 2 36351 ####[place] [id number] MCHC 36 X10 3 Normal 32 - 36 [facility] Comment on above: Performed By: #### 2 28323 ####[place] [id number] MCV (RBC) [Entitic vol] 96 fL Normal 80 - 99 [facility] Comment on above: Performed By: #### 2 70063 ####[facility],[address] [place] [address] [place] # 0.65 x10EE3/UL Normal 0.20 - 1.00 [facility] Comment on above: Performed By: #### 2 55026 ####[facility],[address] [place] [address] MONOS % 7.1 % Normal 0.0 - 10.0 [facility] Comment on above: Performed By: #### 2 63091 ####[facility],[address] [place] [address] Morphology Efra (Bld) [Interp] N/A Normal [facility] Comment on above: Performed By: #### 2 16334 ####[facility],[address] [place] [address] Neut # 5.51 x10EE3/UL Normal 1.50 - 7.10 [facility] Comment on above: Performed By: #### 2 78716 ####[place] [address] Neutrophils/100 WBC (Bld) 60.3 % Normal 46.0 - 76.0 [facility] Comment on above: Performed By: #### 2 19009 ####[facility],[address] [place] [address] PLATELET 372 x10EE3/UL Normal 150 - 450 [facility] Comment on above: Performed By: #### 2 27934 ####[facility],[address] [place] [address] Platelet mean volume (Bld) [Entitic vol] 6.7 fL Normal 6.6 - 10.5 [facility] Comment on above: Result Comment: AUTO MATED DIFFERENTIAL Performed By: #### 2 11859 ####[facility],[address],[place] [address] RBC 3.55 x 10EE6/UL Low 4.10 - 5.30 [facility] Comment on above: Performed By: #### 2 [id number] ####[facility],[address] [place] [address] 14666 WBC 9.1 x 10EE3/UL Normal 4.5 - 10.8 [facility] Comment on above: Performed By: #### 2 [id number] ####[facility],[address] [place] [address]30 CMP with eGFRon 05-26-2025 AGE 34 years Normal [facility] Comment on above: Performed By: #### 2 [id number] ####[facility],[address] [place] [address] [id number] Albumin [Mass/Vol] 3.7 g/dL Normal 3.4 - 5.0 [facility] Comment on above: Performed By: #### 2 [id number] ####[facility],[address] [place], [place] [id number] Albumin/Globulin [Mass ratio] 1.3 {ratio} Normal 0.9 - 1.6 [facility] Comment on above: Performed By: #### 2 [id number] ####[facility],[address] [place] [address] 12115 ALK PHOS 66 U/L Normal 46 - 116 [facility] Comment on above: Performed By: #### 2 [id number] ####[facility],[address] [place] [address] [id number] ALT [Catalytic activity/Vol] 17 U/L Normal 16 - 63 [facility] Comment on above: Performed By: #### 2 [id number] ####[facility],[address] [place] [address]1552 Anion gap [Moles/Vol] 18 mmol/L Normal 10 - 20 [facility] Comment on above: Performed By: #### 2 57069 ####[facility],[address] [place] [address] 65808 AST [Catalytic activity/Vol] 14 U/L Normal 13 - 39 [facility] Comment on above: Performed By: #### 2 95678 ####[facility],[address] [place] [address] 67274 B/C RATIO 11 ratio Normal 0 - 30 [facility] Comment on above: Performed By: #### 2 23228 ####[facility],[address] [place] [address] 09192 Bilirubin [Mass/Vol] 0.2 mg/dL Normal 0.2 - 1.0 [facility] Comment on above: Performed By: #### 2 53070 ####[facility],[address] [place] [address] 22167 Calcium [Mass/Vol] 8.7 mg/dL Normal 8.5 - 10.1 [facility] Comment on above: Performed By: #### 2 76130 ####[facility],[address] [place] [address] 48773 Chloride [Moles/Vol] 106 mmol/L Normal 98 - 107 [facility] Comment on above: Performed By: #### 2 48672 ####[facility],[address] [place] [address] 22056 CMP with eGFR Normal [facility] Comment on above: Result Comment: COMP REHENSIVE METABOLIC PANEL Performed By: #### 2 50480 ####[facility],[address] [place] [address] 67473 CO2 [Moles/Vol] 21.5 mmol/L Normal 21.0 - 32.0 [facility] Comment on above: Performed By: #### 2 72091 ####[facility],[address] [place] [address] 37852 Creatinine [Mass/Vol] 1.17 mg/dL High 0.55 - 1.02 [facility] Comment on above: Performed By: #### 2 22793 ####[facility],[address] [place] [address] 62585 eGFR 52 ML/MINUTE Low 60 - 999 [facility] Comment on above: Performed By: #### 2 22154 ####[facility],[address] [place] [address] 68502 GFR/1.73 sq M.predicted among non-blacks MDRD (S/P/Bld) [Vol rate/Area] mL/min/{1.73_m2} Normal 60 - 999 [facility] Comment on above: Result Comment: ACCO RDING TO THE NATIONAL KIDNEY DISEASE EDUCATION PROGRAM(NKDE), A NORMAL eGFRIS A VALUE GREATER THAN OR EQUAL TO 60 ML/MIN/1.73 SQ METERS.CHRONIC KIDNEY DISEASE: <60mL/MIN/1.73 SQ METERSKIDNEY FAILURE: <15mL/MIN/1.73 SQ METERSTHIS TEST SHOULD ONLY BE USED FOR PATIENTS 18 YEARS OF AGE AND OLDER. Performed By: #### 2 69789 ####[facility],[address] [place] [address] 73298 Globulin (S) [Mass/Vol] 2.9 g/dL Normal 1.5 - 3.8 [facility] Comment on above: Performed By: #### 2 96827 ####[facility],[address] [place] [address] 56033 Glucose [Mass/Vol] 101 mg/dL Normal 74 - 106 [facility] Comment on above: Performed By: #### 2 92661 ####[facility],[address] [place] [address] 34610 Potassium [Moles/Vol] 4.1 mmol/L Normal 3.5 - 5.1 [facility] Comment on above: Performed By: #### 2 61155 ####[facility],[address] [place] [address] 81999 Protein [Mass/Vol] 6.6 g/dL Normal 6.4 - 8.2 [facility] Comment on above: Performed By: #### 2 51919 ####[facility],[address] [place] [address] 05899 Sodium [Moles/Vol] 141 mmol/L Normal 136 - 145 [facility] Comment on above: Performed By: #### 2 34950 ####[facility],[address] [place] [address] 05728 Urea nitrogen [Mass/Vol] 13 mg/dL Normal 7 - 18 [facility] Comment on above: Performed By: #### 2 75536 ####[facility],[address] [place], [place] [id number] LACTATEon 05-26-2025 Lactate [Moles/Vol] 0.8 mmol/L Normal 0.4 - 2.0 [facility] Comment on above: Performed By: #### 2 48355 ####[facility],[address] [place], [place] [id number] SERUM QUALon 05-26 EXTERNAL QC DONE? YES Normal [facility] Comment on above: Performed By: #### 2 66189 ####[facility],[address] [place] [address] INTERNAL QC PASS Normal [facility] Comment on above: Performed By: #### 2 13035 ####[facility],[address] [place], [place] [id number] SER Negative Normal NEGATIVE [facility] Comment on above: Performed By: #### 2 41562 ####[facility],[address] [place] [address] 63548 URINALYSISon 05-26-2025 Amorphous 2+ Normal [facility] Comment on above: Performed By: #### 2 63875 ####[facility],[address] [place] [address] 53123 Bacteria 3+ Normal [facility] Comment on above: Performed By: #### 2 43201 ####[facility],[address] [place] [address] 93262 Bilirubin Ql (U) Negative Normal NORMAL: NEGATIVE [facility] Comment on above: Performed By: #### 2 92109 ####[facility],[address] [place] [address] 89274 Casts NONE Normal [facility] Comment on above: Performed By: #### 2 00604 ####[facility],[address] [place] [address] 45754 Clarity (U) sl.cloudy Normal NORMAL: CLEAR [facility] Comment on above: Performed By: #### 2 76416 ####[facility],[address] [place] [address] 89103 Color (U) yellow Normal NORMAL: YELLOW [facility] Comment on above: Performed By: #### 2 85288 ####[facility],[address] [place] [address] 10660 Crystals LM Nom (Urine sed) SEE BELOW Normal [facility] Comment on above: Performed By: #### 2 62623 ####[facility],[address] [place] [address] 57940 Epi Cells OCC Normal [facility] Comment on above: Performed By: #### 2 44257 ####[facility],[address] [place] [address] 84913 Glucose Ql (U) NORM Normal NORMAL: NORMAL [facility] Comment on above: Performed By: #### 2 99095 ####[facility],[address] [place] [address] 60642 Hemoglobin Ql (U) 150 Abnormal NORMAL: NEGATIVE [facility] Comment on above: Performed By: #### 2 16102 ####[facility],[address] [place] [address] 64522 Ketone Negative Normal NORMAL: NEGATIVE [facility] Comment on above: Performed By: #### 2 42729 ####[facility],[address] [place] [address] 23976 Leukocytes 500 Abnormal NORMAL: NEGATIVE [facility] Comment on above: Performed By: #### 2 98894 ####[facility],[address] [place] [address] 80025 Mucous NONE Normal [facility] Comment on above: Performed By: #### 2 55817 ####[facility],[address] [place] [address] 61794 Nitrite Ql (U) Positive Normal NORMAL: NEGATIVE [facility] Comment on above: Performed By: #### 2 86437 ####[facility],[address] [place], [place] [address] pH (U) 8 [pH] Normal NORMAL: 5.0-8.0 [facility] Comment on above: Performed By: #### 2 01040 ####[facility],[address] [place] [address] Protein Ql (U) 100 Abnormal NORMAL: NEGATIVE [facility] Comment on above: Performed By: #### 2 09263 ####[facility],[address] [place], [place] [id number] Rbc 0-5 Normal 0-3/hpf [facility] Comment on above: Performed By: #### 2 75716 ####[facility],[address] [place], [place] [id number] Sp Harbeson 1.010 Normal NORMAL: 1.010-1.030 [facility] Comment on above: Performed By: #### 2 87849 ####[facility],[address] [place], [place] [id number] Specimen Type R Normal [facility] Comment on above: Performed By: #### 2 50795 ####[facility],[address] [place], [place] [id number] Triple Phos 1+ Normal NORMAL: NONE [facility] Comment on above: Performed By: #### 2 02100 ####[facility],[address] [place], [place] [id number] Urinalysis dipstick W Reflex Microscopic panel (U) SEE BELOW Normal [facility] Comment on above: Result Comment: MICR OSCOPIC Performed By: #### 2 62511 ####[facility],[address] [place] [address] 67664 Urobilinog NORM Normal NORMAL: NORMAL [facility] Comment on above: Performed By: #### 2 10194 ####[facility],[address] [place] [address] 62591 Wbc 11-15 Normal 0-5/hpf [facility] Comment on above: Performed By: #### 2 09672 ####[facility],[address] [place] [address] Yeast NONE Normal [facility] Comment on above: Performed By: #### 2 37259 ####[facility],[address] [place] [address] .Auto Diffon 05-25-2025 Basophil, Absolute 0.1 10 3/mcL Normal 0.0-0.3 [facility] Comment on above: Performed By: #### G FR, BMP, ANEU, MDW, ADIFF, CBC ####[address] [address] Basophils/100 WBC (Bld) 1.3 % Normal 0.0-2.5 [facility] Comment on above: Performed By: #### G FR, BMP, ANEU, MDW, ADIFF, CBC ####[address] [address] Eosinophil, Absolute 0.2 10 3/mcL Normal 0.0-0.7 [facility] Comment on above: Performed By: #### G FR, BMP, ANEU, MDW, ADIFF, CBC ####[address] [address] Eosinophils/100 WBC (Bld) 1.8 % Normal 0.0-6.0 [facility] Comment on above: Performed By: #### G FR, BMP, ANEU, MDW, ADIFF, CBC ####[address] [address] Lymphocyte, Absolute 2.8 10 3/mcL Normal 0.9-4.3 [facility] Comment on above: Performed By: #### G FR, BMP, GURMEET, W, ADIFF, CBC ####[address] [address] Lymphocytes/100 WBC (Bld) 27.0 % Normal 20.0-40.0 [facility] Comment on above: Performed By: #### G FR, BMP, ANEU, MDW, ADIFF, CBC ####[address] [address] Monocyte, Absolute 0.8 10 3/mcL Normal 0.1-1.4 [facility] Comment on above: Performed By: #### G FR, BMP, ANEU, MDW, ADIFF, CBC ####[address] [address] Monocytes/100 WBC (Bld) 8.0 % Normal 2.0-13.0 [facility] Comment on above: Performed By: #### G FR, BMP, ANEU, MDW, ADIFF, CBC ####[address] [address] Neutrophils/100 WBC (Bld) 61.9 % Normal 50.0-75.0 [facility] Comment on above: Performed By: #### G FR, BMP, ANEU, MDW, ADIFF, CBC ####[address] [address] .GFRon 05-25-2025 Estimated Glomerular Filtration Rate 81 ml/min/1.73sqm Normal [facility] Comment on above: Result Comment: Stag [...] results. Performed By: #### G FR, BMP, GURMEET, W, ADIFF, CBC ####[address] [address] .MDWon 05-25-2025 Monocyte Distribution Width 21.37 High 0.00-20.00 [facility] Comment on above: Result Comment: For adults in ED, MDW>20.0 may be associated with a higher risk of sepsis during the first 12hrs of hospital admission Performed By: #### G FR, BMP, ANEU, MDW, ADIFF, CBC ####[address] [address] .NEUABSon 05-25-2025 Neutrophil, Absolute 6.4 10 3/mcL Normal 2.3-8.1 [facility] Comment on above: Performed By: #### G FR, BMP, GURMEET, W, ADIFF, CBC ####[place] [address] BMPon 05-25-2025 BUN/Creatinine Ratio 7.4 ratio Low 10.0-22.0 [facility] Comment on above: Performed By: #### G FR, BMP, GURMEET, W, ADIFF, CBC ####[address] [address] Calcium [Mass/Vol] 9.6 mg/dL Normal 8.7-10.4 [facility] Comment on above: Performed By: #### G FR, BMP, GURMEET, W, ADIFF, CBC ####[address] [address] Chloride [Moles/Vol] 108 mmol/L Normal 98-110 [facility] Comment on above: Performed By: #### G FR, BMP, GURMEET, W, ADIFF, CBC ####[address] [address] CO2 [Moles/Vol] 26 mmol/L Normal 22-32 [facility] Comment on above: Performed By: #### G FR, BMP, GURMEET, W, ADIFF, CBC ####[place] [address] Creatinine [Mass/Vol] 0.94 mg/dL Normal 0.50-1.20 [facility] Comment on above: Result Comment: Test ing performed on Parakey analyzer using enzymatic creatinine methodology. Performed By: #### G FR, BMP, GURMEET, W, ADIFF, CBC ####[place] [address] Electrolyte Balance 6.0 mEq/L Normal 4.0-15.0 [facility] Comment on above: Performed By: #### G FR, BMP, GURMEET, MDW, ADIFF, CBC ####[place] [address] Glucose [Mass/Vol] 92 mg/dL Normal 70-110 [facility] Comment on above: Performed By: #### G FR, BMP, GURMEET, MDW, ADIFF, CBC ####[place] [address] Potassium [Moles/Vol] 4.0 mmol/L Normal 3.5-5.0 [facility] Comment on above: Result Comment: Spec imen slightly hemolyzed. Performed By: #### G FR, BMP, GURMEET, W, ADIFF, CBC ####[place] [address] Sodium [Moles/Vol] 140 mmol/L Normal 136-145 [facility] Comment on above: Performed By: #### G FR, BMP, GURMEET, W, ADIFF, CBC ####[place] [address] Urea nitrogen [Mass/Vol] 7.0 mg/dL Low 8.0-22.0 [facility] Comment on above: Performed By: #### G FR, BMP, GURMEET, W, ADIFF, CBC ####[place] [address] CBCon 05-25-2025 Erythrocyte distribution width (RBC) [Ratio] 15.6 % High 11.5-15.5 [facility] Comment on above: Performed By: #### G FR, BMP, GURMEET, MDW, ADIFF, CBC ####[place] [address] Hematocrit (Bld) [Volume fraction] 41.5 % Normal 34.0-46.0 [facility] Comment on above: Performed By: #### G FR, BMP, ANEU, MDW, ADIFF, CBC ####[place] [address] Hgb 14.1 G/dL Normal 12.0-16.0 [facility] Comment on above: Performed By: #### G FR, BMP, ANEU, MDW, ADIFF, CBC ####[place] [address] MCH (RBC) [Entitic mass] 32.9 pg Normal 27.0-33.0 [facility] Comment on above: Performed By: #### G FR, BMP, ANEU, MDW, ADIFF, CBC ####[place] [address] MCHC 34.0 G/dL Normal 32.0-36.0 [facility] Comment on above: Performed By: #### G FR, BMP, ANEU, MDW, ADIFF, CBC ####[place] [address] MCV (RBC) [Entitic vol] 96.7 fL Normal 80.0-99.0 [facility] Comment on above: Performed By: #### G FR, BMP, ANEU, MDW, ADIFF, CBC ####[place] [address] Platelet 431 10 3/mcL Normal 150-450 [facility] Comment on above: Performed By: #### G FR, BMP, ANEU, MDW, ADIFF, CBC ####[place] [address] Platelet mean volume (Bld) [Entitic vol] 7.1 fL Normal 6.6-10.5 [facility] Comment on above: Performed By: #### G FR, BMP, ANEU, MDW, ADIFF, CBC ####[place] [address] RBC 4.29 10 6/mcL Normal 4.10-5.30 [facility] Comment on above: Performed By: #### G FR, ZENOBIA, GURMEET, YOUNG, CHEN, CBC ####[facility] [place] [address]016 WBC 10.3 10 3/mcL Normal 4.5-10.8 [facility] Comment on above: Performed By: #### G FR, BMP, GURMEET, YOUNG, ADIFF, CBC ####[facility] [place] [address] ABDOMEN/PELVIS W/O CONTRA STon 05-25-2025 CT ABDOMEN/PELVIS W/O CONTRAST Normal [facility] LABORATORYOrdered By: Ricky Mary on 05-25-2025 Beta HCG ( test) Ql (U) Negative (05/25/25 10:32 PM) [facility] Work Phone: LABORATORYOrdered By: Rosalinda Tello on 05-25-2025 Appearance (U) Clear (05/25/25 10:20 PM) Normal Clear Auto Urine SS Bilirubin Ql (U) Negative (05/25/25 10:20 PM) Normal Neg-Trace Auto Urine SS Color (U) Yellow (05/25/25 10:20 PM) Normal Auto Urine SS Glucose Test strip (U) [Mass/Vol] Negative Normal Negative Auto Urine SS Hemoglobin Auto test strip (U) [Mass/Vol] Negative (05/25/25 10:20 PM) Normal Neg-Trace AH Auto Urine SS Ketones Ql (U) Negative Normal Neg-Trace Auto Urine SS UA Leuk Est Negative (05/25/25 10:20 PM) Normal Negative Auto Urine SS UA Nitrite Negative (05/25/25 10:20 PM) Normal Negative Auto Urine SS UA pH 8.0 (05/25/25 10:20 PM) Normal 5.0 - 8.0 Auto Urine SS UA Protein Negative Normal Negative Auto Urine SS UA Spec Grav 1.010 (05/25/25 10:20 PM) Normal 1.006-1.029 Auto Urine SS UA Specimen Type Clean Catch (05/25/25 10:20 PM) Normal Auto Urine SS UA Urobilinogen 1.0 E.U./dL Normal 0.2-1.0 Auto Urine SS LABORATORYOrdered By: SYSTEM SYSTEM [...] above: Interpretive Data: T esting performed on Parakey analyzer using enzymatic creatinine methodology. Electrolyte Balance [...] mg/dL ADM SS Urea nitrogen/Creatinine [Mass ratio] 7.4 ratio Low 10.0 - 22.0 ratio ADM SS WBC (Bld) [#/Vol] 10.3 103/mcL Normal 4.5 - 10.8 10^3/mcL Workflow SS UAon 05-25-2025 Color (U) Yellow Normal [facility] Comment on above: Performed By: #### U A ####[place] [address] Glucose (U) [Mass/Vol] Negative Normal Negative [facility] Comment on above: Performed By: #### U A ####[place] [address] Ketones Ql (U) Negative Normal Neg-Trace [facility] Comment on above: Performed By: #### U A ####[place] [address] UA Appear Clear Normal Clear [facility] Comment on above: Performed By: #### U A ####[place] [address] UA Blood Negative Normal Neg-Trace [facility] Comment on above: Performed By: #### U A ####[place] [address] UA Leuk Est Negative Normal Negative [facility] Comment on above: Performed By: #### U A ####[place] [address] UA Nitrite Negative Normal Negative [facility] Comment on above: Performed By: #### U A ####[place] [address] UA pH 8.0 Normal 5.0 - 8.0 [facility] Comment on above: Performed By: #### U A ####[place] [address] UA Protein Negative Normal Negative [facility] Comment on above: Performed By: #### U A ####[place] [address] UA Spec Grav 1.010 Normal 1.006-1.029 [facility] Comment on above: Performed By: #### U A ####[place] [address] UA Specimen Type Clean Catch Normal [facility] Comment on above: Performed By: #### U A ####[place] [address] UA Urobilinogen 1.0 E.U./dL Normal 0.2-1.0 [facility] Comment on above: Performed By: #### U A ####[place] [address] Urobilinogen (U) [Mass/Vol] Negative Normal Neg-Trace [facility] Comment on above: Performed By: #### U A ####[place] [address] .Auto Diffon 05-09-2025 Basophil, Absolute 0.1 10 3/mcL Normal 0.0-0.3 [facility] Comment on above: Performed By: #### C BC, CMP, MDW, GFR, LIP, ADIFF, ANEU ####[place] [address] Basophils/100 WBC (Bld) 1.0 % Normal 0.0-2.5 [facility] Comment on above: Performed By: #### C BC, CMP, MDW, GFR, LIP, ADIFF, ANEU ####[place] [address] Eosinophil, Absolute 0.2 10 3/mcL Normal 0.0-0.7 [facility] Comment on above: Performed By: #### C BC, CMP, MDW, GFR, LIP, ADIFF, ANEU ####[place] [id number] Eosinophils/100 WBC (Bld) 1.9 % Normal 0.0-6.0 [facility] Comment on above: Performed By: #### C BC, CMP, MDW, GFR, LIP, ADIFF, ANEU ####[place] [address] Lymphocyte, Absolute 2.4 10 3/mcL Normal 0.9-4.3 [facility] Comment on above: Performed By: #### C BC, CMP, MDW, GFR, LIP, ADIFF, ANEU ####[address] [address] Lymphocytes/100 WBC (Bld) 27.3 % Normal 20.0-40.0 [facility] Comment on above: Performed By: #### C BC, CMP, MDW, GFR, LIP, ADIFF, ANEU ####[address] [address] Monocyte, Absolute 0.7 10 3/mcL Normal 0.1-1.4 [facility] Comment on above: Performed By: #### C BC, CMP, MDW, GFR, LIP, ADIFF, ANEU ####[address] [address] Monocytes/100 WBC (Bld) 7.9 % Normal 2.0-13.0 [facility] Comment on above: Performed By: #### C BC, CMP, MDW, GFR, LIP, ADIFF, ANEU ####[address] [address] Neutrophils/100 WBC (Bld) 61.9 % Normal 50.0-75.0 [facility] Comment on above: Performed By: #### C BC, CMP, MDW, GFR, LIP, ADIFF, ANEU ####[address] [address] .GFRon 05-09-2025 Estimated Glomerular Filtration Rate 90 ml/min/1.73sqm Normal [facility] Comment on above: Result Comment: Stag [...] BC, CMP, MDW, GFR, LIP, ADIFF, ANEU ####[place] [id number] .MDWon 05-09-2025 Monocyte Distribution Width 19.78 Normal 0.00-20.00 [facility] Comment on above: Result Comment: For ED adult patients suspected of sepsis, MDW<=20.0 does not rule out sepsis or risk of sepsis Performed By: #### C BC, CMP, MDW, GFR, LIP, ADIFF, ANEU ####[place] [address] .NEUABSon 05-09-2025 Neutrophil, Absolute 5.4 10 3/mcL Normal 2.3-8.1 [facility] Comment on above: Performed By: #### C BC, CMP, MDW, GFR, LIP, ADIFF, ANEU ####[place] [address] BACTERIAL WOUND CULTURE [CCL ]on 05-09-2025 BACTERIAL WOUND CULTURE [CCL] Normal [facility] Comment on above: Result Comment: _CUL TURE WOUND [CCL]_SEE SCANNED REPORT Performed By: #### 2 44062 ####[facility],[address] [place] [address] CBCon 05-09-2025 Erythrocyte distribution width (RBC) [Ratio] 15.0 % Normal 11.5-15.5 [facility] Comment on above: Performed By: #### C BC, CMP, MDW, GFR, LIP, ADIFF, ANEU ####[place] [address] Hematocrit (Bld) [Volume fraction] 35.4 % Normal 34.0-46.0 [facility] Comment on above: Performed By: #### C BC, CMP, MDW, GFR, LIP, ADIFF, ANEU ####[place] [address] Hgb 12.0 G/dL Normal 12.0-16.0 [facility] Comment on above: Performed By: #### C BC, CMP, MDW, GFR, LIP, ADIFF, ANEU ####[place] [address] MCH (RBC) [Entitic mass] 32.3 pg Normal 27.0-33.0 [facility] Comment on above: Performed By: #### C BC, CMP, MDW, GFR, LIP, ADIFF, ANEU ####[place] [address] MCHC 33.9 G/dL Normal 32.0-36.0 [facility] Comment on above: Performed By: #### C BC, CMP, MDW, GFR, LIP, ADIFF, ANEU ####[place] [address] MCV (RBC) [Entitic vol] 95.0 fL Normal 80.0-99.0 [facility] Comment on above: Performed By: #### C BC, CMP, MDW, GFR, LIP, ADIFF, ANEU ####[place] [address] Platelet 347 10 3/mcL Normal 150-450 [facility] Comment on above: Performed By: #### C BC, CMP, MDW, GFR, LIP, ADIFF, ANEU ####[place] [address] Platelet mean volume (Bld) [Entitic vol] 6.9 fL Normal 6.6-10.5 [facility] Comment on above: Performed By: #### C BC, CMP, MDW, GFR, LIP, ADIFF, ANEU ####[place] [address] RBC 3.73 10 6/mcL Low 4.10-5.30 [facility] Comment on above: Performed By: #### C BC, CMP, MDW, GFR, LIP, ADIFF, ANEU ####[place] [address] WBC 8.7 10 3/mcL Normal 4.5-10.8 [facility] Comment on above: Performed By: #### C BC, CMP, MDW, GFR, LIP, ADIFF, ANEU ####[place] [id number] CMPon 05-09-2025 Albumin Level 3.7 G/dL Normal 3.2-4.8 [facility] Comment on above: Performed By: #### C BC, CMP, MDW, GFR, LIP, ADIFF, ANEU ####[place] [address] Albumin/Globulin [Mass ratio] 1.3 {ratio} Normal 0.9-1.6 [facility] Comment on above: Performed By: #### C BC, CMP, MDW, GFR, LIP, ADIFF, ANEU ####[place] [address] ALP [Catalytic activity/Vol] 71 U/L Normal 38-126 [facility] Comment on above: Performed By: #### C BC, CMP, MDW, GFR, LIP, ADIFF, ANEU ####[place] [address] ALT [Catalytic activity/Vol] 9 U/L Low 10-49 [facility] Comment on above: Performed By: #### C BC, CMP, MDW, GFR, LIP, ADIFF, ANEU ####[place] [address] AST [Catalytic activity/Vol] 18 U/L Normal 8-34 [facility] Comment on above: Performed By: #### C BC, CMP, MDW, GFR, LIP, ADIFF, ANEU ####[place] [address] Bili Total <0.20 Normal 0.20-1.20 [facility] Comment on above: Result Comment: Use of this assay is not recommended for patients undergoing treatment with eltrombopag due to the potential for falsely elevated results. Performed By: #### C BC, CMP, MDW, GFR, LIP, ADIFF, ANEU ####[place] [address] BUN/Creatinine Ratio 9.3 ratio Low 10.0-22.0 [facility] Comment on above: Performed By: #### C BC, CMP, MDW, GFR, LIP, ADIFF, ANEU ####[place] [id number] Calcium [Mass/Vol] 9.5 mg/dL Normal 8.7-10.4 [facility] Comment on above: Performed By: #### C BC, CMP, MDW, GFR, LIP, ADIFF, ANEU ####[place] [id number] Chloride [Moles/Vol] 103 mmol/L Normal 98-110 [facility] Comment on above: Performed By: #### C BC, CMP, MDW, GFR, LIP, ADIFF, ANEU ####[place] [id number] CO2 [Moles/Vol] 28 mmol/L Normal 22-32 [facility] Comment on above: Performed By: #### C BC, CMP, MDW, GFR, LIP, ADIFF, ANEU ####[place] [address] Creatinine [Mass/Vol] 0.86 mg/dL Normal 0.50-1.20 [facility] Comment on above: Result Comment: Test ing performed on [place] analyzer using enzymatic creatinine methodology. Performed By: #### C BC, CMP, MDW, GFR, LIP, ADIFF, ANEU ####[place] [address] Electrolyte Balance 12.0 mEq/L Normal 4.0-15.0 [facility] Comment on above: Performed By: #### C BC, CMP, MDW, GFR, LIP, ADIFF, ANEU ####[place] [id number] Globulin 2.9 G/dL Normal 2.5-4.2 [facility] Comment on above: Performed By: #### C BC, CMP, MDW, GFR, LIP, ADIFF, ANEU ####[place] [id number] Glucose [Mass/Vol] 93 mg/dL Normal 70-110 [facility] Comment on above: Performed By: #### C BC, CMP, MDW, GFR, LIP, ADIFF, ANEU ####[place] [address] [address] [place] [address] Potassium [Moles/Vol] 4.0 mmol/L Normal 3.5-5.0 [facility] Comment on above: Performed By: #### C BC, CMP, MDW, GFR, LIP, ADIFF, ANEU ####[address] [address] Sodium [Moles/Vol] 143 mmol/L Normal 136-145 [facility] Comment on above: Performed By: #### C BC, CMP, MDW, GFR, LIP, ADIFF, ANEU ####[address] [address] Total Protein 6.6 G/dL Normal 5.7-8.2 [facility] Comment on above: Performed By: #### C BC, CMP, MDW, GFR, LIP, ADIFF, ANEU ####[address] [address] Urea nitrogen [Mass/Vol] 8.0 mg/dL Normal 8.0-22.0 [facility] Comment on above: Performed By: #### C BC, CMP, MDW, GFR, LIP, ADIFF, ANEU ####[address] [address] [address] ABDOMEN/PELVIS W/O CONTRA STon 05-09-2025 CT ABDOMEN/PELVIS W/O CONTRAST Normal [facility] LABORATORYOrdered By: Guero Zendejas on 05-09-2025 Appearance (U) Clear (05/09/25 12:32 AM) Normal Clear Auto Urine SS Bacteria LM.HPF (Urine sed) [#/Area] Trace /HPF Invalid Interpretation Code Negative Auto Urine SS Bilirubin Ql (U) Negative (05/09/25 12:32 AM) Normal Neg-Trace Auto Urine SS Color (U) Yellow (05/09/25 12:32 AM) Normal Auto Urine SS Glucose Test strip (U) [Mass/Vol] Negative Normal Negative AH Auto Urine SS Hemoglobin Auto test strip (U) [Mass/Vol] Trace (05/09/25 12:32 AM) Normal Neg-Trace AH Auto Urine SS [...] above: Interpretive Data: T esting performed on Parakey analyzer using enzymatic creatinine methodology. Electrolyte Balance [...] 2.9 G/dL Normal 2.5 - 4.2 G/dL AH ADM SS Glucose [Mass/Vol] 93 mg/dL Normal [...] 5.0 mEq/L AH ADM SS Protein [Mass/Vol] 6.6 G/dL Normal 5.7 - 8.2 G/dL AH ADM SS RBC (Bld) [#/Vol] 3.73 106/mcL Low 4.10 - 5.3 0 10^6/mcL AH Workflow SS Sodium [Moles/Vol] 143 mmol/L Normal 136 - 145 mEq/L AH ADM SS Urea nitrogen [Mass/Vol] 8.0 mg/dL Normal 8.0 - 22.0 mg/dL AH ADM SS Urea nitrogen/Creatinine [Mass ratio] 9.3 ratio Low 10.0 - 22.0 ratio AH ADM SS WBC (Bld) [#/Vol] 8.7 103/mcL Normal 4.5 - 10.8 10^3/mcL AH Workflow SS LIPon 05-09-2025 Lipase Level 23 U/L Normal 12-53 [facility] Comment on above: Performed By: #### C BC, CMP, MDW, GFR, LIP, ADIFF, ANEU ####[place] [address] UAon 05-09-2025 Color (U) Yellow Normal [facility] Comment on above: Performed By: #### U A, UAMIC ####[place] [address] Glucose (U) [Mass/Vol] Negative Normal Negative [facility] Comment on above: Performed By: #### U A, UAMIC ####[place] [address] Ketones Ql (U) Negative Normal Neg-Trace [facility] Comment on above: Performed By: #### U A, UAMIC ####[place] [address] UA Appear Clear Normal Clear [facility] Comment on above: Performed By: #### U A, UAMIC ####[place] [address] UA Blood Trace Normal Neg-Trace [facility] Comment on above: Performed By: #### U A, UAMIC ####[place] [address] UA Leuk Est Large Abnormal Negative [facility] Comment on above: Performed By: #### U A, UAMIC ####[place] [address] UA Nitrite Negative Normal Negative [facility] Comment on above: Performed By: #### U A, UAMIC ####[place] [address] UA pH 8.5 Abnormal 5.0 - 8.0 [facility] Comment on above: Performed By: #### U A, UAMIC ####[place] [address] UA Protein Trace Normal Negative [facility] Comment on above: Performed By: #### U A, UAMIC ####[place] [address] UA Spec Grav <=1.005 Abnormal 1.006-1.029 [facility] Comment on above: Performed By: #### U A, UAMIC ####[place] [address] UA Specimen Type Void Normal [facility] Comment on above: Performed By: #### U A, UAMIC ####[place] [address] UA Urobilinogen 0.2 E.U./dL Normal 0.2-1.0 [facility] Comment on above: Performed By: #### U A, UAMIC ####[place] [address] Urobilinogen (U) [Mass/Vol] Negative Normal Neg-Trace [facility] Comment on above: Performed By: #### U A, UAMIC ####[place] [address] UAMICon 05-09-2025 UA Bacteria Trace Abnormal Negative [facility] Comment on above: Performed By: #### U A, UAMIC ####[place] [address] UA Mucous Trace Normal [facility] Comment on above: Performed By: #### U A, UAMIC ####[place] [address] UA RBC 0-2 Normal 0-2 [facility] Comment on above: Performed By: #### U A, UAMIC ####[place] [address] UA Squam Epithelial 0-2 Normal 0-20 [facility] Comment on above: Performed By: #### U A, UAMIC ####[place] [address] UA WBC 5-10 Abnormal 0-5 [facility] Comment on above: Performed By: #### U A, UAMIC ####[address] [address] CBLon 05-08-2025 CBL Normal [facility] .Auto Diffon 05-07-2025 Basophil, Absolute 0.1 10 3/mcL Normal 0.0-0.3 [facility] Comment on above: Performed By: #### B MP, ANEU, CBC, MG, ADIFF, GFR ####[address] [address] Basophils/100 WBC (Bld) 0.9 % Normal 0.0-2.5 [facility] Comment on above: Performed By: #### B MP, ANEU, CBC, MG, ADIFF, GFR ####[address] [address] Eosinophil, Absolute 0.3 10 3/mcL Normal 0.0-0.7 [facility] Comment on above: Performed By: #### B MP, ANEU, CBC, MG, ADIFF, GFR ####[address] [address] Eosinophils/100 WBC (Bld) 3.1 % Normal 0.0-6.0 [facility] Comment on above: Performed By: #### B MP, ANEU, CBC, MG, ADIFF, GFR ####[address] [address] Lymphocyte, Absolute 2.0 10 3/mcL Normal 0.9-4.3 [facility] Comment on above: Performed By: #### B MP, ANEU, CBC, MG, ADIFF, GFR ####[address] [address] Lymphocytes/100 WBC (Bld) 22.6 % Normal 20.0-40.0 [facility] Comment on above: Performed By: #### B MP, ANEU, CBC, MG, ADIFF, GFR ####[address] [address] Monocyte, Absolute 0.8 10 3/mcL Normal 0.1-1.4 [facility] Comment on above: Performed By: #### B MP, ANEU, CBC, MG, ADIFF, GFR ####[address] [address] Monocytes/100 WBC (Bld) 9.2 % Normal 2.0-13.0 [facility] Comment on above: Performed By: #### B MP, ANEU, CBC, MG, ADIFF, GFR ####[address] [address] Neutrophils/100 WBC (Bld) 64.2 % Normal 50.0-75.0 [facility] Comment on above: Performed By: #### B MP, ANEU, CBC, MG, ADIFF, GFR ####[address] [address] .GFRon 05-07-2025 Estimated Glomerular Filtration Rate 94 ml/min/1.73sqm Normal [facility] Comment on above: Result Comment: Stag [...] B MP, ANEU, CBC, MG, ADIFF, GFR ####[address] [address] .NEUABSon 05-07-2025 Neutrophil, Absolute 5.7 10 3/mcL Normal 2.3-8.1 [facility] Comment on above: Performed By: #### B MP, ANEU, CBC, MG, ADIFF, GFR ####[address] [address] BMPon 05-07-2025 BUN/Creatinine Ratio Unable to Calculate Normal 10.0-2 2.0 [facility] Comment on above: Result Comment: Unab le to calculate this test result accurately. Results used to calculate this test are outside the reportable range. Performed By: #### B MP, ANEU, CBC, MG, ADIFF, GFR ####[address] [address] Urea nitrogen [Mass/Vol] mg/dL Low 8.0-22.0 [facility] Comment on above: Performed By: #### B MP, ANEU, CBC, MG, ADIFF, GFR ####[place] [id number] Calcium [Mass/Vol] 9.0 mg/dL Normal 8.7-10.4 [facility] Comment on above: Performed By: #### B MP, ANEU, CBC, MG, ADIFF, GFR ####[place] [address] Chloride [Moles/Vol] 109 mmol/L Normal 98-110 [facility] Comment on above: Performed By: #### B MP, ANEU, CBC, MG, ADIFF, GFR ####[place] [id number] CO2 [Moles/Vol] 26 mmol/L Normal 22-32 [facility] Comment on above: Performed By: #### B MP, ANEU, CBC, MG, ADIFF, GFR ####[place] [address] Creatinine [Mass/Vol] 0.83 mg/dL Normal 0.50-1.20 [facility] Comment on above: Result Comment: Test ing performed on Parakey analyzer using enzymatic creatinine methodology. Performed By: #### B MP, ANEU, CBC, MG, ADIFF, GFR ####[place] [id number] Electrolyte Balance 7.0 mEq/L Normal 4.0-15.0 [facility] Comment on above: Performed By: #### B MP, ANEU, CBC, MG, ADIFF, GFR ####[place] [id number] Glucose [Mass/Vol] 91 mg/dL Normal 70-110 [facility] Comment on above: Performed By: #### B MP, ANEU, CBC, MG, ADIFF, GFR ####[place] [address] Potassium [Moles/Vol] 4.2 mmol/L Normal 3.5-5.0 [facility] Comment on above: Performed By: #### B MP, ANEU, CBC, MG, ADIFF, GFR ####[place] [address] Sodium [Moles/Vol] 142 mmol/L Normal 136-145 [facility] Comment on above: Performed By: #### B MP, ANEU, CBC, MG, ADIFF, GFR ####[place] [address] CBCon 05-07-2025 Erythrocyte distribution width (RBC) [Ratio] 15.4 % Normal 11.5-15.5 [facility] Comment on above: Performed By: #### B MP, ANEU, CBC, MG, ADIFF, GFR ####[place] [address] Hematocrit (Bld) [Volume fraction] 36.7 % Normal 34.0-46.0 [facility] Comment on above: Performed By: #### B MP, ANEU, CBC, MG, ADIFF, GFR ####[place] [address] Hgb 12.2 G/dL Normal 12.0-16.0 [facility] Comment on above: Performed By: #### B MP, ANEU, CBC, MG, ADIFF, GFR ####[place] [address] MCH (RBC) [Entitic mass] 32.8 pg Normal 27.0-33.0 [facility] Comment on above: Performed By: #### B MP, ANEU, CBC, MG, ADIFF, GFR ####[place] [address] MCHC 33.4 G/dL Normal 32.0-36.0 [facility] Comment on above: Performed By: #### B MP, ANEU, CBC, MG, ADIFF, GFR ####[place] [address] MCV (RBC) [Entitic vol] 98.4 fL Normal 80.0-99.0 [facility] Comment on above: Performed By: #### B MP, ANEU, CBC, MG, ADIFF, GFR ####[place] [address] Platelet 318 10 3/mcL Normal 150-450 [facility] Comment on above: Performed By: #### B MP, ANEU, CBC, MG, ADIFF, GFR ####[place] [address] Platelet mean volume (Bld) [Entitic vol] 7.0 fL Normal 6.6-10.5 [facility] Comment on above: Performed By: #### B MP, ANEU, CBC, MG, ADIFF, GFR ####[place] [address] RBC 3.73 10 6/mcL Low 4.10-5.30 [facility] Comment on above: Performed By: #### B MP, ANEU, CBC, MG, ADIFF, GFR ####[place] [address] WBC 8.8 10 3/mcL Normal 4.5-10.8 [facility] Comment on above: Performed By: #### B MP, ANEU, CBC, MG, ADIFF, GFR ####[place] [address] LABORATORYOrdered By: SYSTEM SYSTEM on 05-07-2025 Basophils [...] 26 mmol/L Normal 22 - 32 mEq/L AH ADM SS Creatinine [Mass/Vol] 0.83 mg/dL Normal 0.50 - 1.20 mg/dL AH ADM SS Comment on above: Interpretive Data: T esting performed on SIVI CH analyzer using enzymatic creatinine methodology. Electrolyte Balance 7.0 mEq/L Normal 4.0 - 15 .0 mEq/L ADM SS Eosinophils (Bld) [#/Vol] 0.3 103/mcL Normal 0.0 - 0.7 10^3/mcL Workflow SS Eosinophils/100 WBC (Bld) 3.1 % Normal 0.0 - 6.0 % Workflow SS Erythrocyte distribution width (RBC) [Ratio] 15.4 % Normal 11.5 - 15.5 % Workflow Estimated Glomerular Filtration Rate 94 ml/min/1.73sqm Invalid [...] 33.4 G/dL Normal 32.0 - 36.0 G/dL AH Workflow SS MCV (RBC) [Entitic vol] 98.4 [...] 05-07-2025 Magnesium [Mass/Vol] 2.0 mg/dL Normal 1.6-2.4 [facility] Comment on above: Performed By: #### B MP, ANEU, CBC, MG, ADIFF, GFR ####[place] [address] URINE CULTURE [CCL]on 2024 Bacteria identified Cx Nom (U) Normal [facility] Comment on above: Performed By: #### 2 [id number] ####[place],[address] [place] [address] .Auto Diffon 05-05-2025 Basophil, Absolute 0.1 10 3/mcL Normal 0.0-0.3 [facility] Comment on above: Performed By: #### C BC, ANEU, ADIFF ####[place] [address] [address] [place] [address] Basophils/100 WBC (Bld) 1.0 % Normal 0.0-2.5 [facility] Comment on above: Performed By: #### C BC, ANEU, ADIFF ####[place] [address] [address] [place] [address] Eosinophil, Absolute 0.2 10 3/mcL Normal 0.0-0.7 [facility] Comment on above: Performed By: #### C BC, ANEU, ADIFF ####[place] [address] [place] [address] Eosinophils/100 WBC (Bld) 3.0 % Normal 0.0-6.0 [facility] Comment on above: Performed By: #### C BC, ANEU, ADIFF ####[address] [address] Lymphocyte, Absolute 2.3 10 3/mcL Normal 0.9-4.3 [facility] Comment on above: Performed By: #### C BC, ANEU, ADIFF ####[address] [address] Lymphocytes/100 WBC (Bld) 32.4 % Normal 20.0-40.0 [facility] Comment on above: Performed By: #### C BC, ANEU, ADIFF ####[address] [address] Monocyte, Absolute 0.6 10 3/mcL Normal 0.1-1.4 [facility] Comment on above: Performed By: #### C BC, ANEU, ADIFF ####[place] [address] [address] [place] [address] Monocytes/100 WBC (Bld) 8.2 % Normal 2.0-13.0 [facility] Comment on above: Performed By: #### C BC, ANEU, ADIFF ####[place] [address] [place] [address] Neutrophils/100 WBC (Bld) 55.4 % Normal 50.0-75.0 [facility] Comment on above: Performed By: #### C LARISA, ANEU, ADIFF ####[address] [address] .GFRon 05-05-2025 Estimated Glomerular Filtration Rate 84 ml/min/1.73sqm Normal [facility] Comment on above: Result Comment: Stag [...] results. Performed By: #### B MP, GFR ####[address] [address] .NEUABSon 05-05-2025 Neutrophil, Absolute 3.9 10 3/mcL Normal 2.3-8.1 [facility] Comment on above: Performed By: #### C LARISA, GURMEET, ADIFF ####[address] [address] BMPon 05-05-2025 BUN/Creatinine Ratio 6.6 ratio Low 10.0-22.0 [facility] Comment on above: Order Comment: Routi ne for 0501 the morning of patient admission. Performed By: #### B MP, GFR ####[address] [address] Calcium [Mass/Vol] 8.8 mg/dL Normal 8.7-10.4 [facility] Comment on above: Order Comment: Routi ne for 0501 the morning of patient admission. Performed By: #### B MP, GFR ####[place] [id number] Chloride [Moles/Vol] 111 mmol/L High 98-110 [facility] Comment on above: Order Comment: Routi ne for 0501 the morning of patient admission. Performed By: #### B MP, GFR ####[place] [id number] CO2 [Moles/Vol] 22 mmol/L Normal 22-32 [facility] Comment on above: Order Comment: Routi ne for 0501 the morning of patient admission. Performed By: #### B MP, GFR ####[place] [id number] Creatinine [Mass/Vol] 0.91 mg/dL Normal 0.50-1.20 [facility] Comment on above: Order Comment: Routi ne for 0501 the morning of patient admission. Result Comment: Test ing performed on Parakey analyzer using enzymatic creatinine methodology. Performed By: #### B MP, GFR ####[place] [address] Electrolyte Balance 9.0 mEq/L Normal 4.0-15.0 [facility] Comment on above: Order Comment: Routi ne for 0501 the morning of patient admission. Performed By: #### B MP, GFR ####[place] [id number] Glucose [Mass/Vol] 84 mg/dL Normal 70-110 [facility] Comment on above: Order Comment: Routi ne for 0501 the morning of patient admission. Performed By: #### B MP, GFR ####[place] [id number] Potassium [Moles/Vol] 4.1 mmol/L Normal 3.5-5.0 [facility] Comment on above: Order Comment: Routi ne for 0501 the morning of patient admission. Performed By: #### B MP, GFR ####[place] [id number] Sodium [Moles/Vol] 142 mmol/L Normal 136-145 [facility] Comment on above: Order Comment: Routi ne for 0501 the morning of patient admission. Performed By: #### B MP, GFR ####[place] [address] Urea nitrogen [Mass/Vol] 6.0 mg/dL Low 8.0-22.0 [facility] Comment on above: Order Comment: Routi ne for 0501 the morning of patient admission. Performed By: #### B MP, GFR ####[place] [address] CBCon 05-05-2025 Erythrocyte distribution width (RBC) [Ratio] 15.5 % Normal 11.5-15.5 [facility] Comment on above: Order Comment: Routi ne for 0501 the morning of patient admission. Performed By: #### C BC, ANEU, ADIFF ####[place] [address] Hematocrit (Bld) [Volume fraction] 33.8 % Low 34.0-46.0 [facility] Comment on above: Order Comment: Routi ne for 0501 the morning of patient admission. Performed By: #### C BC, ANEU, ADIFF ####[place] [address] Hgb 11.7 G/dL Low 12.0-16.0 [facility] Comment on above: Order Comment: Routi ne for 0501 the morning of patient admission. Performed By: #### C BC, ANEU, ADIFF ####[place] [address] MCH (RBC) [Entitic mass] 33.5 pg High 27.0-33.0 [facility] Comment on above: Order Comment: Routi ne for 0501 the morning of patient admission. Performed By: #### C BC, ANEU, ADIFF ####[place] [address] MCHC 34.6 G/dL Normal 32.0-36.0 [facility] Comment on above: Order Comment: Routi ne for 0501 the morning of patient admission. Performed By: #### C BC, ANEU, ADIFF ####[place] [address] MCV (RBC) [Entitic vol] 96.8 fL Normal 80.0-99.0 [facility] Comment on above: Order Comment: Routi ne for 0501 the morning of patient admission. Performed By: #### C BCGURMEET, ADIFF ####[place] [address] Platelet 350 10 3/mcL Normal 150-450 [facility] Comment on above: Order Comment: Routi ne for 0501 the morning of patient admission. Performed By: #### C GURMEET PERES, ADIFF ####[place] [address] Platelet mean volume (Bld) [Entitic vol] 7.0 fL Normal 6.6-10.5 [facility] Comment on above: Order Comment: Routi ne for 0501 the morning of patient admission. Performed By: #### C GURMEET PERES, ADIFF ####[place] [address] RBC 3.49 10 6/mcL Low 4.10-5.30 [facility] Comment on above: Order Comment: Routi ne for 0501 the morning of patient admission. Performed By: #### C GURMEET PERES, ADIFF ####[place] [address] WBC 7.1 10 3/mcL Normal 4.5-10.8 [facility] Comment on above: Order Comment: Routi ne for 0501 the morning of patient admission. Performed By: #### C GURMEET PERES, ADIFF ####[place] [address] IR NEPHROSTOMY TUBEon 2024 IR NEPHROSTOMY TUBE Normal [facility] LABORATORYOrdered By: SYSTEM SYSTEM on 05-05-2025 [...] 0.91 mg/dL Normal 0.50 - 1.20 mg/dL AH ADM SS Comment on above: Interpretive Data: T esting performed on Parakey analyzer using enzymatic creatinine methodology. Electrolyte Balance 9.0 mEq/L Normal 4.0 - 15 .0 mEq/L ADM SS Eosinophils (Bld) [#/Vol] 0.2 103/mcL Normal 0.0 - 0.7 10^3/mcL AH Workflow SS Eosinophils/100 WBC (Bld) 3.0 % Normal 0.0 - 6.0 % AH Workflow SS Erythrocyte distribution width (RBC) [Ratio] 15.5 % Normal 11.5 - 15.5 % AH Workflow SS Estimated Glomerular Filtration Rate 84 [...] 33.8 % Low 34.0 - 46.0 % AH Workflow SS Hemoglobin (Bld) [Mass/Vol] 11.7 G/dL Low 12.0 - 16.0 G/dL AH Workflow SS Lymphocytes (Bld) [#/Vol] 2.3 103/mcL Normal 0.9 - 4.3 10^3/mcL AH Workflow SS Lymphocytes/100 WBC (Bld) 32.4 % Normal 20.0 - 40.0 % AH Workflow SS MCH (RBC) [Entitic mass] 33.5 [...] 7.1 103/mcL Normal 4.5 - 10.8 10^3/mcL Workflow SS LABORATORYOrdered By: Nick Boswell on 05-05-2025 Beta HCG ( test) Ql (U) Negative (05/05/25 12:44 AM) [facility] Work Phone: .Auto Diffon 05-04-2025 Basophil, Absolute 0.1 10 3/mcL Normal 0.0-0.3 [facility] Comment on above: Performed By: #### B MP, CBC, GFR, ADIFFGURMEET MDW ####[address] [address] Basophils/100 WBC (Bld) 0.8 % Normal 0.0-2.5 [facility] Comment on above: Performed By: #### B MP, CBC, GFR, ADIFFGURMEET MDW ####[address] [address] Eosinophil, Absolute 0.1 10 3/mcL Normal 0.0-0.7 [facility] Comment on above: Performed By: #### B MP, CBC, GFR, ADIFF, YOUNG LEVI ####[address] [address] Eosinophils/100 WBC (Bld) 1.2 % Normal 0.0-6.0 [facility] Comment on above: Performed By: #### B MP, CBC, GFR, ADIFFGURMEET MDW ####[address] [address] Lymphocyte, Absolute 2.2 10 3/mcL Normal 0.9-4.3 [facility] Comment on above: Performed By: #### B MP, CBC, GFR, ADGURMEET CHOUDHURY MDW ####[address] [address] Lymphocytes/100 WBC (Bld) 28.8 % Normal 20.0-40.0 [facility] Comment on above: Performed By: #### B MP, CBC, GFR, ADIFFGURMEET MDW ####[address] [address] Monocyte, Absolute 0.6 10 3/mcL Normal 0.1-1.4 [facility] Comment on above: Performed By: #### B MP, CBC, GFR, ADIFFGURMEET MDW ####[address] [address] Monocytes/100 WBC (Bld) 7.4 % Normal 2.0-13.0 [facility] Comment on above: Performed By: #### B MP, CBC, GFR, ADIFFGURMEET MDW ####[place] [address] Neutrophils/100 WBC (Bld) 61.8 % Normal 50.0-75.0 [facility] Comment on above: Performed By: #### B MP, CBC, GFR, ADGURMEET CHOUDHURY MDW ####[place] [address] .GFRon 05-04-2025 Estimated Glomerular Filtration Rate 83 ml/min/1.73sqm Normal [facility] Comment on above: Result Comment: Stag [...] B MP, CBC, GFR, GURMEET SIDDIQUI MDW ####[place] [address] .MDWon 05-04-2025 Monocyte Distribution Width 19.63 Normal 0.00-20.00 [facility] Comment on above: Result Comment: For ED adult patients suspected of sepsis, MDW<=20.0 does not rule out sepsis or risk of sepsis Performed By: #### B MP, CBC, GFR, ADGURMEET CHOUDHURY MDW ####[place] [address] .NEUABSon 05-04-2025 Neutrophil, Absolute 4.6 10 3/mcL Normal 2.3-8.1 [facility] Comment on above: Performed By: #### B MP, CBC, GFR, ADIFFGURMEET MDW ####[place] [address] BMPon 05-04-2025 BUN/Creatinine Ratio Unable to Calculate Normal 10.0-2 2.0 [facility] Comment on above: Result Comment: Unab le to calculate this test result accurately. Results used to calculate this test are outside the reportable range. Performed By: #### B MP, CBC, GFR, GURMEET SIDDIQUI MDW ####[address] [address] Urea nitrogen [Mass/Vol] mg/dL Low 8.0-22.0 [facility] Comment on above: Performed By: #### B MP, CBC, GFR, GURMEET SIDDIQUI MDW ####[address] [address] Calcium [Mass/Vol] 9.2 mg/dL Normal 8.7-10.4 [facility] Comment on above: Performed By: #### B MP, CBC, GFR, GURMEET SIDDIQUI MDW ####[address] [address] Chloride [Moles/Vol] 109 mmol/L Normal 98-110 [facility] Comment on above: Performed By: #### B MP, CBC, GFR, GURMEET SIDDIQUI MDW ####[address] [address] CO2 [Moles/Vol] 25 mmol/L Normal 22-32 [facility] Comment on above: Performed By: #### B MP, CBC, GFR, GURMEET SIDDIQUI MDW ####[address] [address] Creatinine [Mass/Vol] 0.92 mg/dL Normal 0.50-1.20 [facility] Comment on above: Result Comment: Test ing performed on Parakey analyzer using enzymatic creatinine methodology. Performed By: #### B MP, CBC, GFR, GURMEET SIDDIQUI MDW ####[address] [address] Electrolyte Balance 8.0 mEq/L Normal 4.0-15.0 [facility] Comment on above: Performed By: #### B MP, CBC, GFR, GURMEET SIDDIQUI MDW ####[address] [address] [address] Glucose [Mass/Vol] 91 mg/dL Normal 70-110 [facility] Comment on above: Performed By: #### B MP, CBC, GFR, GURMEET SIDDIQUI MDW ####[place] [address] Potassium [Moles/Vol] 4.2 mmol/L Normal 3.5-5.0 [facility] Comment on above: Performed By: #### B MP, CBC, GFR, GURMEET SIDDIQUI MDW ####[place] [address] Sodium [Moles/Vol] 142 mmol/L Normal 136-145 [facility] Comment on above: Performed By: #### B MP, CBC, GFR, GURMEET SIDDIQUI MDW ####[place] [address] CBCon 05-04-2025 Erythrocyte distribution width (RBC) [Ratio] 15.4 % Normal 11.5-15.5 [facility] Comment on above: Performed By: #### B MP, CBC, GFR, GURMEET SIDDIQUI MDW ####[place] [address] Hematocrit (Bld) [Volume fraction] 35.2 % Normal 34.0-46.0 [facility] Comment on above: Performed By: #### B MP, CBC, GFR, GURMEET SIDDIQUI MDW ####[place] [address] Hgb 12.6 G/dL Normal 12.0-16.0 [facility] Comment on above: Performed By: #### B MP, CBC, GFR, GURMEET SIDDIQUI MDW ####[place] [address] MCH (RBC) [Entitic mass] 33.7 pg High 27.0-33.0 [facility] Comment on above: Performed By: #### B MP, CBC, GFR, GURMEET SIDDIQUI MDW ####[place] [address] MCHC 35.7 G/dL Normal 32.0-36.0 [facility] Comment on above: Performed By: #### B MP, CBC, GFR, GURMEET SIDDIQUI MDW ####[place] [address] MCV (RBC) [Entitic vol] 94.3 fL Normal 80.0-99.0 [facility] Comment on above: Performed By: #### B MP, CBC, GFR, GURMEET SIDDIQUI MDW ####[place] [address] Platelet 336 10 3/mcL Normal 150-450 [facility] Comment on above: Performed By: #### B MP, CBC, GFR, GURMEET SIDDIQUI MDW ####[place] [address] Platelet mean volume (Bld) [Entitic vol] 6.6 fL Normal 6.6-10.5 [facility] Comment on above: Performed By: #### B MP, CBC, GFR, GURMEET SIDDIQUI MDW ####[place] [address] RBC 3.73 10 6/mcL Low 4.10-5.30 [facility] Comment on above: Performed By: #### B MP, CBC, GFR, GURMEET SIDDIQUI MDW ####[place] [address] WBC 7.5 10 3/mcL Normal 4.5-10.8 [facility] Comment on above: Performed By: #### B MP, CBC, GFR, GURMEET SIDDIQUI MDW ####[place] [address] CURon 05-04-2025 CUR Normal [facility] ED MED ADMINISTRATION DETAIL on 05-04-2025 ED MED ADMINISTRATION DETAIL Normal [facility] ED NURSES CLINICAL NOTEon ED NURSES CLINICAL NOTE Normal [facility] ED ORDER SHEET (CPOE ONLY)on 05-04-2025 ED ORDER SHEET (CPOE ONLY) Normal [facility] ED PHYSICIAN CLINICAL REPORT on 05-04-2025 ED PHYSICIAN CLINICAL REPORT Normal [facility] ED SUPER BILLon 05-04-2025 ED SUPER BILL Normal [facility] ED VISIT SUMMARYon ED VISIT SUMMARY Normal [facility] ED VITALS FLOW SHEETon 05-04 ED VITALS FLOW SHEET Normal [facility] LABORATORYOrdered By: Alanna Russo on 05-04-2025 Appearance [...] above: Interpretive Data: T esting performed on Parakey analyzer using enzymatic creatinine methodology. Electrolyte Balance [...] Filtration Rate 83 ml/min/1.73sqm Invalid Interpretation Code ADM SS Comment [...] range. UAon 05-04-2025 Color (U) Yellow Normal [facility] Comment on above: Performed By: #### U A ####[place] [address] Glucose (U) [Mass/Vol] Negative Normal Negative [facility] Comment on above: Performed By: #### U A ####[place] [address] Ketones Ql (U) Negative Normal Neg-Trace [facility] Comment on above: Performed By: #### U A ####[place] [address] UA Appear Clear Normal Clear [facility] Comment on above: Performed By: #### U A ####[facility] [place] [address] UA Blood Negative Normal Neg-Trace [facility] Comment on above: Performed By: #### U A ####[place] [address] UA Leuk Est Negative Normal Negative [facility] Comment on above: Performed By: #### U A ####[place] [address] UA Nitrite Negative Normal Negative [facility] Comment on above: Performed By: #### U A ####[place] [address] UA pH 8.0 Normal 5.0 - 8.0 [facility] Comment on above: Performed By: #### U A ####[place] [address] UA Protein Negative Normal Negative [facility] Comment on above: Performed By: #### U A ####[place] [address] UA Spec Grav 1.010 Normal 1.006-1.029 [facility] Comment on above: Performed By: #### U A ####[place] [address] UA Specimen Type Void Normal [facility] Comment on above: Performed By: #### U A ####[place] [address] UA Urobilinogen 0.2 E.U./dL Normal 0.2-1.0 [facility] Comment on above: Performed By: #### U A ####[place] [address] Urobilinogen (U) [Mass/Vol] Negative Normal Neg-Trace [facility] Comment on above: Performed By: #### U A ####[place] [address] .Auto Diffon 05-03-2025 Basophil, Absolute 0.0 10 3/mcL Normal 0.0-0.3 [facility] Comment on above: Performed By: #### C BC, LAC, ADIFF, MDW, GFR, ANEU, CMP ####[place] [address] Basophils/100 WBC (Bld) 0.5 % Normal 0.0-2.5 [facility] Comment on above: Performed By: #### C BC, LAC, ADIFF, MDW, GFR, ANEU, CMP ####[place] [address] Eosinophil, Absolute 0.2 10 3/mcL Normal 0.0-0.7 [facility] Comment on above: Performed By: #### C BC, LAC, ADIFF, MDW, GFR, ANEU, CMP ####[place] [id number] Eosinophils/100 WBC (Bld) 2.5 % Normal 0.0-6.0 [facility] Comment on above: Performed By: #### C BC, LAC, ADIFF, MDW, GFR, ANEU, CMP ####[place] [address] Lymphocyte, Absolute 2.1 10 3/mcL Normal 0.9-4.3 [facility] Comment on above: Performed By: #### C BC, LAC, ADIFF, MDW, GFR, ANEU, CMP ####[place] [address] Lymphocytes/100 WBC (Bld) 23.8 % Normal 20.0-40.0 [facility] Comment on above: Performed By: #### C BC, LAC, ADIFF, MDW, GFR, ANEU, CMP ####[address] [place] [address] Monocyte, Absolute 0.9 10 3/mcL Normal 0.1-1.4 [facility] Comment on above: Performed By: #### C BC, LAC, ADMACEY, MDW, GFR, ANEU, CMP ####[address] [address] Monocytes/100 WBC (Bld) 10.3 % Normal 2.0-13.0 [facility] Comment on above: Performed By: #### C BC, LAC, ADIFF, MDW, GFR, ANEU, CMP ####[address] [address] Neutrophils/100 WBC (Bld) 62.9 % Normal 50.0-75.0 [facility] Comment on above: Performed By: #### C BC, LAC, ADMACEY, MDW, GFR, ANEU, CMP ####[address] [address] .GFRon 05-03-2025 Estimated Glomerular Filtration Rate 84 ml/min/1.73sqm Normal [facility] Comment on above: Result Comment: Stag [...] BC, LAC, ADMACEY, MDW, GFR, ANEU, CMP ####[address] [address] .MDWon 05-03-2025 Monocyte Distribution Width 19.35 Normal 0.00-20.00 [facility] Comment on above: Result Comment: For ED adult patients suspected of sepsis, MDW<=20.0 does not rule out sepsis or risk of sepsis Performed By: #### C BC, LAC, ADIFF, MDW, GFR, ANEU, CMP ####[place] [address] .NEUABSon 05-03-2025 Neutrophil, Absolute 5.5 10 3/mcL Normal 2.3-8.1 [facility] Comment on above: Performed By: #### C BC, LAC, ADIFF, MDW, GFR, ANEU, CMP ####[place] [address] CBCon 05-03-2025 Erythrocyte distribution width (RBC) [Ratio] 15.1 % Normal 11.5-15.5 [facility] Comment on above: Performed By: #### C BC, LAC, ADIFF, MDW, GFR, ANEU, CMP ####[place] [address] Hematocrit (Bld) [Volume fraction] 36.4 % Normal 34.0-46.0 [facility] Comment on above: Performed By: #### C BC, LAC, ADIFF, MDW, GFR, ANEU, CMP ####[place] [address] Hgb 12.3 G/dL Normal 12.0-16.0 [facility] Comment on above: Performed By: #### C BC, LAC, ADIFF, MDW, GFR, ANEU, CMP ####[place] [address] MCH (RBC) [Entitic mass] 32.5 pg Normal 27.0-33.0 [facility] Comment on above: Performed By: #### C BC, LAC, ADIFF, MDW, GFR, ANEU, CMP ####[place] [address] MCHC 33.9 G/dL Normal 32.0-36.0 [facility] Comment on above: Performed By: #### C BC, LAC, ADIFF, MDW, GFR, ANEU, CMP ####[place] [address] MCV (RBC) [Entitic vol] 96.0 fL Normal 80.0-99.0 [facility] Comment on above: Performed By: #### C BC, LAC, ADMACEY, MDW, GFR, ANEU, CMP ####[place] [address] Platelet 314 10 3/mcL Normal 150-450 [facility] Comment on above: Performed By: #### C BC, LAC, ADMACEY, MDW, GFR, ANEU, CMP ####[place] [address] Platelet mean volume (Bld) [Entitic vol] 7.4 fL Normal 6.6-10.5 [facility] Comment on above: Performed By: #### C BC, LAC, ADMACEY, MDW, GFR, ANEU, CMP ####[place] [address] RBC 3.79 10 6/mcL Low 4.10-5.30 [facility] Comment on above: Performed By: #### C BC, LAC, ADMACEY, MDW, GFR, ANEU, CMP ####[place] [address] WBC 8.7 10 3/mcL Normal 4.5-10.8 [facility] Comment on above: Performed By: #### C BC, LAC, ADMACEY, MDW, GFR, ANEU, CMP ####[place] [address] CBC + DIFFon 05-03-2025 Baso # 0.03 x10EE3/UL Normal 0.00 - 0.10 [facility] Comment on above: Performed By: #### 2 60784 ####[facility],[address] [place], [place] [id number] Basophils/100 WBC (Bld) 0.4 % Normal 0.0 - 2.0 [facility] Comment on above: Performed By: #### 2 63879 ####[facility],[address] [place], [place] [address] CBC + DIFF Normal [facility] Comment on above: Result Comment: CBC- COMPLETE BLOOD COUNT Performed By: #### 2 95553 ####[facility],[address] [place] [address] EO # 0.29 x10EE3/UL Normal 0.00 - 0.50 [facility] Comment on above: Performed By: #### 2 21382 ####[facility],[address] [place] [address] Eosinophils/100 WBC (Bld) 3.4 % Normal 0.0 - 7.0 [facility] Comment on above: Performed By: #### 2 78286 ####[facility],[address] [place] [address] Erythrocyte distribution width (RBC) [Ratio] 14.2 % Normal 12.0 - 15.6 [facility] Comment on above: Performed By: #### 2 01886 ####[facility],[address] [place] [address] Hematocrit (Bld) [Volume fraction] 32.5 % Low 34.0 - 46.0 [facility] Comment on above: Performed By: #### 2 79312 ####[facility],[address] [place] [address] Hemoglobin (Bld) [Mass/Vol] 11.5 g/dL Low 12.0 - 16.0 [facility] Comment on above: Performed By: #### 2 05965 ####[facility],[address] [place] [address] Lymph # 1.68 x10EE3/UL Normal 0.80 - 2.80 [facility] Comment on above: Performed By: #### 2 73338 ####[facility],[address] [place] [address] Lymphocytes/100 WBC (Bld) 19.8 % Low 20.0 - 45.0 [facility] Comment on above: Performed By: #### 2 07569 ####[facility],[address] [place] [address] MANUAL DIFF N/A Normal [facility] Comment on above: Performed By: #### 2 61258 ####[facility],[address] [place] [address] MCH (RBC) [Entitic mass] 34 pg High 27 - 33 [facility] Comment on above: Performed By: #### 2 58706 ####[facility],[address] [place] [address] MCHC 35 X10 3 Normal 32 - 36 [facility] Comment on above: Performed By: #### 2 85142 ####[facility],[address] [place] [address] MCV (RBC) [Entitic vol] 97 fL Normal 80 - 99 [facility] Comment on above: Performed By: #### 2 58528 ####[facility],[address] [place] [address] [place] # 0.74 x10EE3/UL Normal 0.20 - 1.00 [facility] Comment on above: Performed By: #### 2 55966 ####[facility],[address] [place] [address] MONOS % 8.7 % Normal 0.0 - 10.0 [facility] Comment on above: Performed By: #### 2 43841 ####[facility],[address] [place] [address] Morphology Efra (Bld) [Interp] N/A Normal [facility] Comment on above: Performed By: #### 2 82986 ####[facility],[address] [place] [address] Neut # 5.74 x10EE3/UL Normal 1.50 - 7.10 [facility] Comment on above: Performed By: #### 2 34648 ####[facility],[address] [place] [address] Neutrophils/100 WBC (Bld) 67.7 % Normal 46.0 - 76.0 [facility] Comment on above: Performed By: #### 2 52062 ####[facility],[address] [place] [address] PLATELET 328 x10EE3/UL Normal 150 - 450 [facility] Comment on above: Performed By: #### 2 72888 ####[facility],[address] [place] [address] Platelet mean volume (Bld) [Entitic vol] 6.8 fL Normal 6.6 - 10.5 [facility] Comment on above: Result Comment: AUTO MATED DIFFERENTIAL Performed By: #### 2 10151 ####[facility],[address] [place] [address] RBC 3.35 x 10EE6/UL Low 4.10 - 5.30 [facility] Comment on above: Performed By: #### 2 36299 ####[facility],[address] [place] [address] WBC 8.5 x 10EE3/UL Normal 4.5 - 10.8 [facility] Comment on above: Performed By: #### 2 10710 ####[facility],[address] [place] [address] Baso # 0.04 x10EE3/UL Normal 0.00 - 0.10 [facility] Comment on above: Performed By: #### 2 49099 ####[facility],[address] [place] [address] Basophils/100 WBC (Bld) 0.4 % Normal 0.0 - 2.0 [facility] Comment on above: Performed By: #### 2 60476 ####[facility],[address] [place] [address] CBC + DIFF Normal [facility] Comment on above: Result Comment: CBC- COMPLETE BLOOD COUNT Performed By: #### 2 87252 ####[facility],[address] [place] [address] EO # 0.23 x10EE3/UL Normal 0.00 - 0.50 [facility] Comment on above: Performed By: #### 2 63459 ####[facility],[address] [place], [place] [address] Eosinophils/100 WBC (Bld) 2.4 % Normal 0.0 - 7.0 [facility] Comment on above: Performed By: #### 2 02694 ####[facility],[address] [place] [address] Erythrocyte distribution width (RBC) [Ratio] 13.8 % Normal 12.0 - 15.6 [facility] Comment on above: Performed By: #### 2 05488 ####[facility],[address] [place] [address] Hematocrit (Bld) [Volume fraction] 37.3 % Normal 34.0 - 46.0 [facility] Comment on above: Performed By: #### 2 80617 ####[facility],[address] [place] [address] Hemoglobin (Bld) [Mass/Vol] 13.0 g/dL Normal 12.0 - 16.0 [facility] Comment on above: Performed By: #### 2 60611 ####[facility],[address] [place] [address] Lymph # 2.29 x10EE3/UL Normal 0.80 - 2.80 [facility] Comment on above: Performed By: #### 2 62645 ####[facility],[address] [place], [place] [address] Lymphocytes/100 WBC (Bld) 23.2 % Normal 20.0 - 45.0 [facility] Comment on above: Performed By: #### 2 08766 ####[facility],[address] [place], [place] [address] MANUAL DIFF N/A Normal [facility] Comment on above: Performed By: #### 2 72532 ####[facility],[address] [place], [place] [address] MCH (RBC) [Entitic mass] 34 pg High 27 - 33 [facility] Comment on above: Performed By: #### 2 33962 ####[place] [address] MCHC 35 X10 3 Normal 32 - 36 [facility] Comment on above: Performed By: #### 2 19407 ####[facility],[address] [place] [address] MCV (RBC) [Entitic vol] 96 fL Normal 80 - 99 [facility] Comment on above: Performed By: #### 2 79352 ####[facility],[address] [place] [address] [place] # 0.89 x10EE3/UL Normal 0.20 - 1.00 [facility] Comment on above: Performed By: #### 2 59595 ####[place] [address] MONOS % 9.0 % Normal 0.0 - 10.0 [facility] Comment on above: Performed By: #### 2 95058 ####[place] [address] Morphology Efra (Bld) [Interp] N/A Normal [facility] Comment on above: Performed By: #### 2 96053 ####[facility],[address] [place] [address] Neut # 6.41 x10EE3/UL Normal 1.50 - 7.10 [facility] Comment on above: Performed By: #### 2 76281 ####[place] [address] Neutrophils/100 WBC (Bld) 65.1 % Normal 46.0 - 76.0 [facility] Comment on above: Performed By: #### 2 33183 ####[place] [address] PLATELET 371 x10EE3/UL Normal 150 - 450 [facility] Comment on above: Performed By: #### 2 16806 ####[facility],[address] [place] [address] Platelet mean volume (Bld) [Entitic vol] 6.7 fL Normal 6.6 - 10.5 [facility] Comment on above: Result Comment: AUTO MATED DIFFERENTIAL Performed By: #### 2 87258 ####[facility],[address] [place], [place] [address] RBC 3.87 x 10EE6/UL Low 4.10 - 5.30 [facility] Comment on above: Performed By: #### 2 13539 ####[facility],[address] [place], [place] [address] WBC 9.9 x 10EE3/UL Normal 4.5 - 10.8 [facility] Comment on above: Performed By: #### 2 84374 ####[facility],[address] [place], [place] [phone] CMPon 05-03-2025 Albumin Level 3.5 G/dL Normal 3.2-4.8 [facility] Comment on above: Performed By: #### C KI PERES ADIFF, MDW, GFR, ANEU, CMP ####[address] [address] Albumin/Globulin [Mass ratio] 1.5 {ratio} Normal 0.9-1.6 [facility] Comment on above: Performed By: #### C KI PERES ADIFF, MDW, GFR, ANEU, CMP ####[address] [address] ALP [Catalytic activity/Vol] 62 U/L Normal 38-126 [facility] Comment on above: Performed By: #### C KI PERES ADIFF, MDW, GFR, ANEU, CMP ####[address] [address] ALT [Catalytic activity/Vol] 10 U/L Normal 10-49 [facility] Comment on above: Performed By: #### C BC, LAC, ADIFF, MDW, GFR, ANEU, CMP ####[address] [address] AST [Catalytic activity/Vol] 22 U/L Normal 8-34 [facility] Comment on above: Performed By: #### C BC, LAC, ADIFF, MDW, GFR, ANEU, CMP ####[address] [address] Bili Total 0.20 mg/dL Normal 0.20-1.20 [facility] Comment on above: Result Comment: Use of this assay is not recommended for patients undergoing treatment with eltrombopag due to the potential for falsely elevated results. Performed By: #### C BC, LAC, ADIFF, MDW, GFR, ANEU, CMP ####[address] [address] BUN/Creatinine Ratio 8.8 ratio Low 10.0-22.0 [facility] Comment on above: Performed By: #### C BC, LAC, ADIFF, MDW, GFR, ANEU, CMP ####[address] [address] Calcium [Mass/Vol] 8.3 mg/dL Low 8.7-10.4 [facility] Comment on above: Performed By: #### C BC, LAC, ADIFF, MDW, GFR, ANEU, CMP ####[address] [address] Chloride [Moles/Vol] 111 mmol/L High 98-110 [facility] Comment on above: Performed By: #### C BC, LAC, ADIFF, MDW, GFR, ANEU, CMP ####[address] [address] CO2 [Moles/Vol] 24 mmol/L Normal 22-32 [facility] Comment on above: Performed By: #### C BC, LAC, ADIFF, MDW, GFR, ANEU, CMP ####[address] [address] Creatinine [Mass/Vol] 0.91 mg/dL Normal 0.50-1.20 [facility] Comment on above: Result Comment: Test ing performed on Parakey analyzer using enzymatic creatinine methodology. Performed By: #### C BC, LAC, ADIFF, MDW, GFR, ANEU, CMP ####[address] [address] Electrolyte Balance 4.0 mEq/L Normal 4.0-15.0 [facility] Comment on above: Performed By: #### C BC, LAC, ADIFF, MDW, GFR, ANEU, CMP ####[address] [address] Globulin 2.4 G/dL Low 2.5-4.2 [facility] Comment on above: Performed By: #### C BC, LAC, ADIFF, MDW, GFR, ANEU, CMP ####[address] [address] Glucose [Mass/Vol] 85 mg/dL Normal 70-110 [facility] Comment on above: Performed By: #### C BC, LAC, ADIFF, MDW, GFR, ANEU, CMP ####[address] [address] Potassium [Moles/Vol] 5.0 mmol/L Normal 3.5-5.0 [facility] Comment on above: Result Comment: Spec imen slightly hemolyzed. Performed By: #### C BC, LAC, ADIFF, MDW, GFR, ANEU, CMP ####[address] [address] Sodium [Moles/Vol] 139 mmol/L Normal 136-145 [facility] Comment on above: Performed By: #### C BC, LAC, ADIFF, MDW, GFR, ANEU, CMP ####[address] [address] Total Protein 5.9 G/dL Normal 5.7-8.2 [facility] Comment on above: Performed By: #### C BC, LAC, ADIFF, MDW, GFR, ANEU, CMP ####[address] [address] Urea nitrogen [Mass/Vol] 8.0 mg/dL Normal 8.0-22.0 [facility] Comment on above: Performed By: #### C BC, LAC, ADMACEY, MDW, GFR, ANEU, CMP ####[facility] [place] [address] CMP with eGFRon 05-03-2025 AGE 34 years Normal [facility] Comment on above: Performed By: #### 2 45111 ####[facility],[address] [place] [address] Albumin [Mass/Vol] 2.9 g/dL Low 3.4 - 5.0 [facility] Comment on above: Performed By: #### 2 22965 ####[facility],[address] [place] [address] Albumin/Globulin [Mass ratio] 1.0 {ratio} Normal 0.9 - 1.6 [facility] Comment on above: Performed By: #### 2 44186 ####[address] [address] ALK PHOS 64 U/L Normal 46 - 116 [facility] Comment on above: Performed By: #### 2 83421 ####[address] [address] ALT [Catalytic activity/Vol] 17 U/L Normal 16 - 63 [facility] Comment on above: Performed By: #### 2 78903 ####[facility],[address] [place] [address] Anion gap [Moles/Vol] 11 mmol/L Normal 10 - 20 [facility] Comment on above: Performed By: #### 2 49306 ####[address] [address] AST [Catalytic activity/Vol] 15 U/L Normal 13 - 39 [facility] Comment on above: Performed By: #### 2 71472 ####[address] [address] B/C RATIO 9 ratio Normal 0 - 30 [facility] Comment on above: Performed By: #### 2 65424 ####[facility],[address] [place] [address] Bilirubin [Mass/Vol] 0.3 mg/dL Normal 0.2 - 1.0 [facility] Comment on above: Performed By: #### 2 32801 ####[facility],[address] [place], [place] [id number] Calcium [Mass/Vol] 8.3 mg/dL Low 8.5 - 10.1 [facility] Comment on above: Performed By: #### 2 33517 ####[facility],[address] [place] [address] Chloride [Moles/Vol] 107 mmol/L Normal 98 - 107 [facility] Comment on above: Performed By: #### 2 07570 ####[place] [address] CMP with eGFR Normal [facility] Comment on above: Result Comment: COMP REHENSIVE METABOLIC PANEL Performed By: #### 2 88624 ####[address] [address] CO2 [Moles/Vol] 25.1 mmol/L Normal 21.0 - 32.0 [facility] Comment on above: Performed By: #### 2 73242 ####[facility],[address] [place], [place] [id number] Creatinine [Mass/Vol] 0.81 mg/dL Normal 0.55 - 1.02 [facility] Comment on above: Performed By: #### 2 61083 ####[address] [address] GFR/1.73 sq M.predicted among non-blacks MDRD (S/P/Bld) [Vol rate/Area] mL/min/{1.73_m2} Normal 60 - 999 [facility] Comment on above: Performed By: #### 2 [id number] ####[facility],[address] [place] [id number] Result Comment: ACCO RDING TO THE NATIONAL KIDNEY DISEASE EDUCATION PROGRAM(NKDE), A NORMAL eGFRIS A VALUE GREATER THAN OR EQUAL TO 60 ML/MIN/1.73 SQ METERS.CHRONIC KIDNEY DISEASE: <60mL/MIN/1.73 SQ METERSKIDNEY FAILURE: <15mL/MIN/1.73 SQ METERSTHIS TEST SHOULD ONLY BE USED FOR PATIENTS 18 YEARS OF AGE AND OLDER. Globulin (S) [Mass/Vol] 2.8 g/dL Normal 1.5 - 3.8 [facility] Comment on above: Performed By: #### 2 [id number] ####[facility],[address] [place] [id number] Glucose [Mass/Vol] 82 mg/dL Normal 74 - 106 [facility] Comment on above: Performed By: #### 2 [id number] ####[facility],[address] [place] [id number] Potassium [Moles/Vol] 3.9 mmol/L Normal 3.5 - 5.1 [facility] Comment on above: Performed By: #### 2 [id number] ####[facility],[address] [place] [id number] Protein [Mass/Vol] 5.7 g/dL Low 6.4 - 8.2 [facility] Comment on above: Performed By: #### 2 32014 ####[facility],[address] [place] [address] 80697 Sodium [Moles/Vol] 139 mmol/L Normal 136 - 145 [facility] Comment on above: Performed By: #### 2 23076 ####[facility],[address] [place] [address] 38316 Urea nitrogen [Mass/Vol] 7 mg/dL Normal 7 - 18 [facility] Comment on above: Performed By: #### 2 65203 ####[facility],[address] [place] [address] AGE 34 years Normal [facility] Comment on above: Performed By: #### 2 28809 ####[facility],[address] [place] [address] 71148 Albumin [Mass/Vol] 3.4 g/dL Normal 3.4 - 5.0 [facility] Comment on above: Performed By: #### 2 51970 ####[facility],[address] [place] [address] Albumin/Globulin [Mass ratio] 1.0 {ratio} Normal 0.9 - 1.6 [facility] Comment on above: Performed By: #### 2 32603 ####[facility],[address] [place], [place] [id number] ALK PHOS 74 U/L Normal 46 - 116 [facility] Comment on above: Performed By: #### 2 32370 ####[facility],[address] [place], [place] [id number] ALT [Catalytic activity/Vol] 20 U/L Normal 16 - 63 [facility] Comment on above: Performed By: #### 2 02958 ####[facility],[address] [place], [place] [id number] Anion gap [Moles/Vol] 15 mmol/L Normal 10 - 20 [facility] Comment on above: Performed By: #### 2 45705 ####[facility],[address] [place] [address] 82865 AST [Catalytic activity/Vol] 11 U/L Low 13 - 39 [facility] Comment on above: Performed By: #### 2 24865 ####[facility],[address] [place] [address] 78040 B/C RATIO 7 ratio Normal 0 - 30 [facility] Comment on above: Performed By: #### 2 32383 ####[facility],[address] [place] [address] 77749 Bilirubin [Mass/Vol] 0.5 mg/dL Normal 0.2 - 1.0 [facility] Comment on above: Performed By: #### 2 27868 ####[facility],[address] [place] [address] 29671 Calcium [Mass/Vol] 8.8 mg/dL Normal 8.5 - 10.1 [facility] Comment on above: Performed By: #### 2 99518 ####[facility],[address] [place] [address] 42555 Chloride [Moles/Vol] 103 mmol/L Normal 98 - 107 [facility] Comment on above: Performed By: #### 2 30491 ####[facility],[address] [place] [address] 19541 CMP with eGFR Normal [facility] Comment on above: Result Comment: COMP REHENSIVE METABOLIC PANEL Performed By: #### 2 94254 ####[facility],[address] [place] [address] 20770 CO2 [Moles/Vol] 25.4 mmol/L Normal 21.0 - 32.0 [facility] Comment on above: Performed By: #### 2 85338 ####[facility],[address] [place] [address] 63016 Creatinine [Mass/Vol] 0.99 mg/dL Normal 0.55 - 1.02 [facility] Comment on above: Performed By: #### 2 32208 ####[facility],[address] [place] [address] 49591 GFR/1.73 sq M.predicted among non-blacks MDRD (S/P/Bld) [Vol rate/Area] mL/min/{1.73_m2} Normal 60 - 999 [facility] Comment on above: Performed By: #### 2 63333 ####[facility],[address] [place] [address] 69900 Result Comment: ACCO RDING TO THE NATIONAL KIDNEY DISEASE EDUCATION PROGRAM(NKDE), A NORMAL eGFRIS A VALUE GREATER THAN OR EQUAL TO 60 ML/MIN/1.73 SQ METERS.CHRONIC KIDNEY DISEASE: <60mL/MIN/1.73 SQ METERSKIDNEY FAILURE: <15mL/MIN/1.73 SQ METERSTHIS TEST SHOULD ONLY BE USED FOR PATIENTS 18 YEARS OF AGE AND OLDER. Globulin (S) [Mass/Vol] 3.3 g/dL Normal 1.5 - 3.8 [facility] Comment on above: Performed By: #### 2 43993 ####[facility],[address] [place] [address] 89557 Glucose [Mass/Vol] 109 mg/dL High 74 - 106 [facility] Comment on above: Performed By: #### 2 86316 ####[facility],[address] [place] [address] 70780 Potassium [Moles/Vol] 3.3 mmol/L Low 3.5 - 5.1 [facility] Comment on above: Performed By: #### 2 02922 ####[facility],[address] [place] [address] 04844 Protein [Mass/Vol] 6.7 g/dL Normal 6.4 - 8.2 [facility] Comment on above: Performed By: #### 2 18730 ####[facility],[address] [place] [address] 52082 Sodium [Moles/Vol] 140 mmol/L Normal 136 - 145 [facility] Comment on above: Performed By: #### 2 23878 ####[facility],[address] [place] [address] 48162 Urea nitrogen [Mass/Vol] 7 mg/dL Normal 7 - 18 [facility] Comment on above: Performed By: #### 2 50272 ####[facility],[address] [place] [address] ABDOMEN/PELVIS Won 2024 CT ABDOMEN/PELVIS W Normal [facility] CT ABDOMEN/PELVIS W/O CONTRA STon 05-03-2025 CT ABDOMEN/PELVIS W/O CONTRAST Normal [facility] ED MED ADMINISTRATION DETAIL on 05-03-2025 ED MED ADMINISTRATION DETAIL Normal [facility] ED NURSES CLINICAL NOTEon ED NURSES CLINICAL NOTE Normal J [facility] ED ORDER SHEET (CPOE ONLY)on 05-03-2025 ED ORDER SHEET (CPOE ONLY) Normal [facility] ED PHYSICIAN CLINICAL REPORT on 05-03-2025 ED PHYSICIAN CLINICAL REPORT Normal [facility] ED SUPER BILLon 05-03-2025 ED SUPER BILL Normal [facility] ED VISIT SUMMARYon ED VISIT SUMMARY Normal [facility] ED VITALS FLOW SHEETon 05-03 ED VITALS FLOW SHEET Normal [facility] LABORATORYOrdered By: Madyson Magallanes on 05-03-2025 Appearance (U) Cloudy *ABN* (05/03/25 10:09 AM) Invalid Interpretation Code Clear AH Auto Urine SS Bilirubin Ql (U) Negative (05/03/25 10:09 AM) Normal Neg-Trace AH Auto Urine SS [...] above: Interpretive Data: T esting performed on Parakey analyzer using enzymatic creatinine methodology. Electrolyte Balance [...] 139 mmol/L Normal 136 - 145 mEq/L ADM [...] E.U./dL Normal 0.2-1.0 AH Auto Urine SS LACon 05-03-2025 Lactic Acid Lvl 0.7 mmol/L Normal 0.5-2.2 [facility] Comment on above: Performed By: #### C BC, LAC, ADIFF, MDW, GFR, ANEU, CMP ####[place] [address] LACTATEon 05-03-2025 Lactate [Moles/Vol] 0.6 mmol/L Normal 0.4 - 2.0 [facility] Comment on above: Performed By: #### 2 68271 ####[facility],[address] [place] [address] 40294 LIPASEon 05-03-2025 Lipase [Catalytic activity/Vol] 104.0 U/L High 15.0 - 78.0 [facility] Comment on above: Result Comment: *PLE ASE NOTE THAT RANGES FOR LIPASE HAVE CHANGED OF 10/31/23 DUE TO AN ASSAYUPDATE BY THE PLC ENGINEER.THE NEW ASSAY RANGE IS 6-250 U/L, WITH A REFERENCERANGE OF 16-77 U/L. Performed By: #### 2 12565 ####[facility],[address] [place] [address] No Panel Informationon 05-03 Culture Urine Specimen received in lab. [facility] Work Phone: Microscopic examination of blood, culture Culture has been received in lab and is no growth to date. Routine cultures are held for 5 days. [facility] Work Phone: Microscopic examination of blood, culture Culture has been received in lab and is no growth to date. Routine cultures are held for 5 days. [facility] Work Phone: URINEon 05-03-2025 Beta HCG ( test) Ql (U) Negative Normal NEGATIVE [facility] Comment on above: Performed By: #### 2 23402 ####[facility],[address] [place] [address] EXTERNAL QC DONE? YES Normal [facility] Comment on above: Result Comment: Very dilute urine specimens, as indicated by a low specific gravity, may notcontain medical billing representative levels of hCG. If is still suspected, a firstmorning urine specimen should be collected 48 hours later and tested. Performed By: #### 2 77253 ####[place] [address] INTERNAL QC PASS Normal [facility] Comment on above: Performed By: #### 2 71081 ####[facility],[address] [place], [place] [id number] UAon 05-03-2025 Color (U) Yellow Normal [facility] Comment on above: Order Comment: from nephrostomy tube Performed By: #### U A, UAMIC ####[address] [address] Glucose (U) [Mass/Vol] Negative Normal Negative [facility] Comment on above: Order Comment: from nephrostomy tube Performed By: #### U A, UAMIC ####[facility] [place] [address] Ketones Ql (U) Negative Normal Neg-Trace [facility] Comment on above: Order Comment: from nephrostomy tube Performed By: #### U A, UAMIC ####[facility] [place] [address] UA Appear Cloudy Abnormal Clear [facility] Comment on above: Order Comment: from nephrostomy tube Performed By: #### U A, UAMIC ####[facility] [place] [address] UA Blood Small Abnormal Neg-Trace [facility] Comment on above: Order Comment: from nephrostomy tube Performed By: #### U A, UAMIC ####[place] [address] UA Leuk Est Moderate Abnormal Negative [facility] Comment on above: Order Comment: from nephrostomy tube Performed By: #### U A, UAMIC ####[place] [address] UA Nitrite Negative Normal Negative [facility] Comment on above: Order Comment: from nephrostomy tube Performed By: #### U A, UAMIC ####[place] [address] UA pH 8.5 Abnormal 5.0 - 8.0 [facility] Comment on above: Order Comment: from nephrostomy tube Performed By: #### U A, UAMIC ####[place] [address] UA Protein 100 mg/dL Abnormal Negative [facility] Comment on above: Order Comment: from nephrostomy tube Performed By: #### U A, UAMIC ####[place] [address] UA Spec Grav >=1.030 Abnormal 1.006-1.029 [facility] Comment on above: Order Comment: from nephrostomy tube Performed By: #### U A, UAMIC ####[place] [address] UA Specimen Type Not Given Normal [facility] Comment on above: Order Comment: from nephrostomy tube Performed By: #### U A, UAMIC ####[place] [address] UA Urobilinogen 0.2 E.U./dL Normal 0.2-1.0 [facility] Comment on above: Order Comment: from nephrostomy tube Performed By: #### U A, UAMIC ####[place] [address] Urobilinogen (U) [Mass/Vol] Negative Normal Neg-Trace [facility] Comment on above: Order Comment: from nephrostomy tube Performed By: #### U A, UAMIC ####[place] [address] Color (U) Yellow Normal [facility] Comment on above: Performed By: #### U A ####[place] [address] Glucose (U) [Mass/Vol] Negative Normal Negative [facility] Comment on above: Performed By: #### U A ####[place] [address] Ketones Ql (U) Negative Normal Neg-Trace [facility] Comment on above: Performed By: #### U A ####[place] [address] UA Appear Clear Normal Clear [facility] Comment on above: Performed By: #### U A ####[place] [address] UA Blood Negative Normal Neg-Trace [facility] Comment on above: Performed By: #### U A ####[place] [address] UA Leuk Est Negative Normal Negative [facility] Comment on above: Performed By: #### U A ####[place] [address] UA Nitrite Negative Normal Negative [facility] Comment on above: Performed By: #### U A ####[place] [address] UA pH 6.5 Normal 5.0 - 8.0 [facility] Comment on above: Performed By: #### U A ####[place] [address] UA Protein Trace Normal Negative [facility] Comment on above: Performed By: #### U A ####[place] [address] UA Spec Grav >=1.030 Abnormal 1.006-1.029 [facility] Comment on above: Performed By: #### U A ####[place] [address] UA Specimen Type Clean Catch Normal [facility] Comment on above: Performed By: #### U A ####[place] [address] UA Urobilinogen 0.2 E.U./dL Normal 0.2-1.0 [facility] Comment on above: Performed By: #### U A ####[place] [address] Urobilinogen (U) [Mass/Vol] Negative Normal Neg-Trace [facility] Comment on above: Performed By: #### U A ####[place] [address] UAMICon 05-03-2025 UA Amorphus 2+ /hpf Normal [facility] Comment on above: Performed By: #### U A, UAMIC ####[place] [address] UA Bacteria 3+ /hpf Abnormal Negative [facility] Comment on above: Performed By: #### U A, UAMIC ####[place] [address] UA RBC 3-5 Abnormal 0-2 [facility] Comment on above: Performed By: #### U A, UAMIC ####[place] [address] UA Squam Epithelial 0-2 Normal 0-20 [facility] Comment on above: Performed By: #### U A, UAMIC ####[place] [address] UA WBC 25-50 Abnormal 0-5 [facility] Comment on above: Performed By: #### U A, UAMIC ####[facility] [place] [address] URINALYSISon 05-03-2025 Amorphous 2+ Normal [facility] Comment on above: Performed By: #### 2 13403 ####[facility],[address] [place] [address] 22624 Bacteria 2+ Normal [facility] Comment on above: Performed By: #### 2 46611 ####[facility],[address] [place] [address] 90117 Bilirubin Ql (U) Negative Normal NORMAL: NEGATIVE [facility] Comment on above: Performed By: #### 2 82277 ####[facility],[address] [place] [address] 13476 Casts NONE Normal [facility] Comment on above: Performed By: #### 2 83852 ####[facility],[address] [place] [address] 91291 Clarity (U) SL. CLOUDY Abnormal NORMAL: CLEAR [facility] Comment on above: Performed By: #### 2 51849 ####[facility],[address] [place] [address] 25068 Color (U) YELLOW Normal NORMAL: YELLOW [facility] Comment on above: Performed By: #### 2 49825 ####[facility],[address] [place] [address] 15951 Crystals LM Nom (Urine sed) NONE Normal [facility] Comment on above: Performed By: #### 2 92525 ####[facility],[address] [place] [address] 98952 Epi Cells NONE Normal [facility] Comment on above: Performed By: #### 2 57100 ####[facility],[address] [place] [address] 65517 Glucose Ql (U) NORM Normal NORMAL: NORMAL [facility] Comment on above: Performed By: #### 2 30117 ####[facility],[address] [place] [address] 47572 Hemoglobin Ql (U) 150 Abnormal NORMAL: NEGATIVE [facility] Comment on above: Performed By: #### 2 33413 ####[facility],[address] [place] [address] 23904 Ketone Negative Normal NORMAL: NEGATIVE [facility] Comment on above: Performed By: #### 2 12148 ####[facility],[address] [place] [address] 28639 Leukocytes 500 Abnormal NORMAL: NEGATIVE [facility] Comment on above: Performed By: #### 2 21407 ####[facility],[address] [place] [address] 58805 Mucous NONE Normal [facility] Comment on above: Performed By: #### 2 33608 ####[facility],[address] [place], [place] [phone] Nitrite Ql (U) Negative Normal NORMAL: NEGATIVE [facility] Comment on above: Performed By: #### 2 08854 ####[facility],[address] [place], [place] [id number] pH (U) 7.0 [pH] Normal NORMAL: 5.0-8.0 [facility] Comment on above: Performed By: #### 2 99049 ####[facility],[address] [place] [address] 03690 Protein Ql (U) 30 Abnormal NORMAL: NEGATIVE [facility] Comment on above: Performed By: #### 2 96077 ####[facility],[address] [place], [place] [id number] Rbc 0-5 Normal 0-3/hpf [facility] Comment on above: Performed By: #### 2 23997 ####[facility],[address] [place], [place] [id number] Sp Harbeson 1.005 Low NORMAL: 1.010-1.030 [facility] Comment on above: Performed By: #### 2 96214 ####[facility],[address] [place] [address] 53883 Specimen Type R Normal [facility] Comment on above: Result Comment: NEPH ROSTOMY Performed By: #### 2 14947 ####[facility],[address] [place] [address] 88166 Urinalysis dipstick W Reflex Microscopic panel (U) SEE BELOW Normal [facility] Comment on above: Result Comment: MICR OSCOPIC Performed By: #### 2 06360 ####[facility],[address] [place], [place] [id number] Urobilinog NORMAL Normal NORMAL: NORMAL [facility] Comment on above: Performed By: #### 2 19081 ####[facility],[address] [place], [place] [id number] Wbc 6-10 Normal 0-5/hpf [facility] Comment on above: Performed By: #### 2 83914 ####[facility],[address] [place] [address] 36726 Yeast NONE Normal [facility] Comment on above: Performed By: #### 2 90183 ####[facility],[address] [place] [address] 81858 Bilirubin Ql (U) Negative Normal NORMAL: NEGATIVE [facility] Comment on above: Performed By: #### 2 77835 ####[facility],[address] [place] [address] 38490 Clarity (U) CLEAR Normal NORMAL: CLEAR [facility] Comment on above: Performed By: #### 2 75060 ####[facility],[address] [place] [address] 74706 Color (U) YELLOW Normal NORMAL: YELLOW [facility] Comment on above: Performed By: #### 2 40699 ####[facility],[address] [place] [address] 05028 Glucose Ql (U) NORM Normal NORMAL: NORMAL [facility] Comment on above: Performed By: #### 2 20729 ####[facility],[address] [place] [address] 51936 Hemoglobin Ql (U) Negative Normal NORMAL: NEGATIVE [facility] Comment on above: Performed By: #### 2 04070 ####[facility],[address] [place] [address] 36520 Ketone Negative Normal NORMAL: NEGATIVE [facility] Comment on above: Performed By: #### 2 79508 ####[facility],[address] [place] [address] 32547 Leukocytes Negative Normal NORMAL: NEGATIVE [facility] Comment on above: Performed By: #### 2 33396 ####[facility],[address] [place], [place] [phone] Nitrite Ql (U) Negative Normal NORMAL: NEGATIVE [facility] Comment on above: Performed By: #### 2 35469 ####[facility],[address] [place], [place] [address] pH (U) 6.0 [pH] Normal NORMAL: 5.0-8.0 [facility] Comment on above: Performed By: #### 2 33185 ####[facility],[address] [place] [address] 99130 Protein Ql (U) Negative Normal NORMAL: NEGATIVE [facility] Comment on above: Performed By: #### 2 37757 ####[facility],[address] [place] [address] 89574 Sp Harbeson 1.010 Normal NORMAL: 1.010-1.030 [facility] Comment on above: Performed By: #### 2 60320 ####[facility],[address] [place] [address] Specimen Type R Normal [facility] Comment on above: Result Comment: BLAD JULITO Performed By: #### 2 18314 ####[facility],[address] [place], [place] [id number] Urinalysis dipstick W Reflex Microscopic panel (U) NOT INDICATED Normal [facility] Comment on above: Performed By: #### 2 86612 ####[facility],[address] [place] [address] Urobilinog NORMAL Normal NORMAL: NORMAL [facility] Comment on above: Performed By: #### 2 28134 ####[facility],[address] [place] [address] ED MED ADMINISTRATION DETAIL on 04-30-2025 ED MED ADMINISTRATION DETAIL Normal [facility] ED NURSES CLINICAL NOTEon ED NURSES CLINICAL NOTE Normal [facility] ED ORDER SHEET (CPOE ONLY)on 04-30-2025 ED ORDER SHEET (CPOE ONLY) Normal [facility] ED SUPER BILLon 04-30-2025 ED SUPER BILL Normal [facility] ED VISIT SUMMARYon ED VISIT SUMMARY Normal [facility] ED VITALS FLOW SHEETon 04-30 ED VITALS FLOW SHEET Normal [facility] Absolute lymphocyte countOrd ered By: Jatin Garcia on 04-09-2025 Lymphocytes Auto (Unsp spec) [#/Vol] 2.78 10*3/uL 0.83-4.51 [place] Absolute neutrophil countOrd ered By: Jatin Garcia on 04-09-2025 Neutrophils (Bld) [#/Vol] 4.7 10*3/uL 2.0-7.7 [place] Anion gap in Serum or Plasma Ordered By: Jatin Garcia on 04-09-2025 Anion gap [Moles/Vol] 14 mmol/L 5-15 [facility] Automated lymphocyte count a s percentage of total leukocytesOrdered By: Jatin Garcia on 04-09-2025 Lymphocytes/100 WBC Auto (Unsp spec) 32.0 % - [place] BUN/creatinine ratioOrdered By: Jatin Garcia on 04-09-2025 Urea nitrogen/Creatinine [Mass ratio] 9.0 mg/mg Low 10- [place] Basic Metabolic Profile (BMP )on 04-09-2025 BUN/CRE 9.0 RATIO Low 10-20 [place] Comment on above: Performed By: #### L 100.0100, L500.2500 #### [facility] [address] [place], [address] Calcium [Mass/Vol] 9.1 mg/dL Normal 7.6-11.0 [facility] Comment on above: Performed By: #### L 100.0100, L500.2500 #### [facility] [address] [place], [address] Chloride [Moles/Vol] 106 mmol/L Normal 98-108 [facility] Comment on above: Performed By: #### L 100.0100, L500.2500 #### [facility] [address] [place], [address] CO2 [Moles/Vol] 19.8 mmol/L Low 21.0-32.0 [place] Comment on above: Performed By: #### L 100.0100, L500.2500 #### [facility] [address] [place], [address] Creatinine [Mass/Vol] 0.96 mg/dL Normal 0.70-1.20 [facility] Comment on above: Performed By: #### L 100.0100, L500.2500 #### [facility] [address] [place], [address] ECRCL 72.90 ml/min Normal 50-250 [place] Comment on above: Performed By: #### L 100.0100, L500.2500 #### [facility] [address] [place], [address] GAP 14 Normal 5-15 [place] Comment on above: Performed By: #### L 100.0100, L500.2500 #### [facility] [address] [place], [address] GFR/1.73 sq M.predicted among non-blacks MDRD (S/P/Bld) [Vol rate/Area] 79 mL/min/{1.73_m2} Normal >60 [place] Comment on above: Result Comment: mL/m in/1.73m2 CKD-EPI Creatinine Equation (2020) Performed By: #### L 100.0100, L500.2500 #### [facility] [address] [place], [address] Glucose [Mass/Vol] 120 mg/dL High 70-99 [facility] Comment on above: Performed By: #### L 100.0100, L500.2500 #### [facility] [address] [place], [address] Potassium [Moles/Vol] 3.4 mmol/L Normal 3.3-5.1 [facility] Comment on above: Performed By: #### L 100.0100, L500.2500 #### [facility] [address] [place], [address] Sodium [Moles/Vol] 140 mmol/L Normal 133-145 [facility] Comment on above: Performed By: #### L 100.0100, L500.2500 #### [facility] [address] [place], [address] Urea nitrogen [Mass/Vol] 9 mg/dL Normal 4-19 [place] Comment on above: Performed By: #### L 100.0100, L500.2500 #### [facility] [address] [place], [address] Basophil percentageOrdered B y: Jatin Garcia on 04-09-2025 Basophils/100 WBC (Bld) 1.0 % 0-1 [facility] Bilirubin Test strip Ql (U)O rdered By: Jatin Garcia on 04-09-2025 Bilirubin Ql (U) Negative Negative [place] CBC W/Diff, Automatedon 06-0 7-2025 Absolute Lymph 2.78 X10 3/uL Normal 0.83-4.51 [place] Comment on above: Performed By: #### L 100.0100, L500.2500 #### [facility] [address] [place], [address] Absolute Neut 4.7 X10 3/uL Normal 2.0-7.7 [place] Comment on above: Performed By: #### L 100.0100, L500.2500 #### [facility] [address] [place], [address] Basophils/100 WBC (Bld) 1.0 % Normal 0-1 [facility] Comment on above: Performed By: #### L 100.0100, L500.2500 #### [facility] [address] [place], [address] Eosinophils/100 WBC (Bld) 3.2 % Normal 0-5 [place] Comment on above: Performed By: #### L 100.0100, L500.2500 #### [facility] [address] [place], [address] Erythrocyte distribution width (RBC) [Ratio] 14.6 % Normal 11.6-14.6 [place] Comment on above: Performed By: #### L 100.0100, L500.2500 #### [facility] [address] [place], [address] Hematocrit (Bld) [Volume fraction] 36.4 % Low 37-47 [place] Comment on above: Performed By: #### L 100.0100, L500.2500 #### [facility] [address] [place], [address] Hemoglobin (Bld) [Mass/Vol] 12.3 g/dL Normal 12.0-15.0 [place] Comment on above: Performed By: #### L 100.0100, L500.2500 #### [facility] [address] [place], [address] IG% 0.300 Normal 0.0-0.9 [facility] Comment on above: Result Comment: IG% - Immature Granulocytes (promyelocytes, myelocytes and metamyelocytes) > 1% indicates that a LEFT SHIFT is Present. Performed By: #### L 100.0100, L500.2500 #### [facility] [address] [place], [address] Lymphocytes/100 WBC (Bld) 32.0 % Normal 19-41 [facility] Comment on above: Performed By: #### L 100.0100, L500.2500 #### [facility] [address] [place], [address] MCH (RBC) [Entitic mass] 32.3 pg High 27.0-32.0 [facility] Comment on above: Performed By: #### L 100.0100, L500.2500 #### [facility] [address] [place], [address] MCHC (RBC) [Mass/Vol] 33.8 g/dL Normal 32-36 [facility] Comment on above: Performed By: #### L 100.0100, L500.2500 #### [facility] [address] [place], [address] MCV (RBC) [Entitic vol] 95.5 fL Normal 81-99 [facility] Comment on above: Performed By: #### L 100.0100, L500.2500 #### [facility] [address] [place], [address] Monocytes/100 WBC (Bld) 8.9 % Normal 0-10 [facility] Comment on above: Performed By: #### L 100.0100, L500.2500 #### [facility] [address] [place], [address] Neutrophils/100 WBC (Bld) 54.6 % Normal 47-70 [facility] Comment on above: Performed By: #### L 100.0100, L500.2500 #### [facility] [address] [place], [address] Nucleated RBC (Bld) [#/Vol] 0 10*3/uL Normal 0-5 [facility] Comment on above: Performed By: #### L 100.0100, L500.2500 #### [facility] [address] [place], [address] Platelet mean volume (Bld) [Entitic vol] 9.4 fL Normal 6.2-12.0 [place] Comment on above: Performed By: #### L 100.0100, L500.2500 #### [facility] [address] [place], [address] Platelets (Bld) [#/Vol] 297 10*3/uL Normal 150-450 [facility] Comment on above: Performed By: #### L 100.0100, L500.2500 #### [facility] [address] [place], [address] RBC (Bld) [#/Vol] 3.81 10*6/uL Low 4.2-5.4 [facility] Comment on above: Performed By: #### L 100.0100, L500.2500 #### [facility] [address] [place], [address] RDW SD 51.2 fl High 35.1-43.9 [place] Comment on above: Performed By: #### L 100.0100, L500.2500 #### [facility] [address] [place], [address] WBC (Bld) [#/Vol] 8.7 10*3/uL Normal 4.4-11.0 [facility] Comment on above: Performed By: #### L 100.0100, L500.2500 #### [facility] [address] [place], [address] Carbon dioxide, total [Moles /volume] in Central venous bloodOrdered By: Jatin Garcia on 04-09-2025 CO2 [Moles/Vol] 19.8 mmol/L Low 21.0-32.0 [facility] Chloride assayOrdered By: Sammy Garcia on 04-09-2025 Chloride [Moles/Vol] 106 mmol/L 98-108 [facility] Emergency Department Summary on 04-09-2025 Emergency Department Summary [facility] Medical Records Department [address] [place] [address] Emergency Department Summary 04/09/25 MR#: [id number] Acct: [id number] Name: LALY NAVAS Rep #: [id number] : 1990 34 From: Jatin Garcia MD [...] has been doing but the pain is [id number] and she is feeling very nauseated and does not want to waste her pain management prescription by vomiting it up. She denies any fevers or chills. No dysuria or hematuria. She has been on antibiotics for several weeks, currently on Bactrim, and states that she was admitted to [place] where her oncologist and urologist are, she [...] has known about those issues for years. [facility] Medical History Nephrostomy present Kidney failure Kidney [...] throughout Psych (more content not included)... Normal [place] Eosinophil percentageOrdered By: Jatin Garcia on 04-09-2025 Eosinophils/100 WBC (Bld) 3.2 % 0-5 [facility] Erythrocyte distribution wid th ratioOrdered By: Jatin Garcia on 04-09-2025 Erythrocyte distribution width (RBC) [Ratio] 14.6 % 11.6-14.6 [facility] Erythrocyte distribution wid th standard deviationOrdered By: Jatin Garcia on 04-09-2025 Erythrocyte distribution width (RBC) [Ratio] 51.2 fl High 35.1-43.9 [facility] Glomerular filtration rate ( GFR) estimation/1.73 sq m using serum, plasma, or whole bOrdered By: Jatin Garcia on 04-09-2025 GFR/1.73 sq M.predicted among non-blacks MDRD (S/P/Bld) [Vol rate/Area] 79 mL/min/{1.73_m2} >60 [facility] Comment on above: mL/min/1.73m2 CKD-EP I Creatinine Equation (2020) Hematocrit Auto (Bld) [Volum e fraction]Ordered By: Jatin Garcia on 04-09-2025 Hematocrit (Bld) [Volume fraction] 36.4 % Low 37-47 [facility] Hemoglobin measurementOrdere d By: Jatin Garcia on 04-09-2025 Hemoglobin (Bld) [Mass/Vol] 12.3 g/dL 12.0-15.0 [facility] Immature granulocytes/100 WB C Auto (Bld)Ordered By: Jatin Garcia on 04-09-2025 Immature granulocytes/100 WBC (Bld) 0.300 % 0.0-0.9 [facility] Comment on above: IG% - Immature Granu locytes (promyelocytes, myelocytes and metamyelocytes) > 1% indicates that a LEFT SHIFT is Present. Ketones Test strip Ql (U)Ord ered By: Jatin Garcia on 04-09-2025 Ketones Ql (U) Negative Negative [facility] MCV (mean corpuscular volume ) determinationOrdered By: Jatin Garcia on 04-09-2025 MCV (RBC) [Entitic vol] 95.5 fL 81-99 [facility] Mean corpuscular hemoglobin (MCH) determinationOrdered By: Jatin Garcia on 04-09-2025 MCH (RBC) [Entitic mass] 32.3 pg High 27.0-32.0 [facility] Mean corpuscular hemoglobin concentration (MCHC) determinationOrdered By: Jatin Garcia on 04-09-2025 MCHC (RBC) [Mass/Vol] 33.8 g/dL 32-36 [facility] Mean platelet volume determi nationOrdered By: Jatin Garcia on 04-09-2025 Platelet mean volume (Bld) [Entitic vol] 9.4 fL 6.2-12.0 [place] Microscopic analysis of urin e for red blood cells (RBC)Ordered By: Jatin Garcia on 04-09-2025 Microscopic analysis of urine for red blood cells (RBC) 0 SEEN /hpf 0-5 [facility] Monocyte percentageOrdered B y: Jatin Garcia on 04-09-2025 Monocytes/100 WBC (Bld) 8.9 % 0-10 [facility] Mucus LM Ql (Urine sed)Order ed By: Jatin Garcia on 04-09-2025 Mucus Ql (Urine sed) 0 SEEN /hpf [facility] Neutrophil percentageOrdered By: Jatin Garcia on 04-09-2025 Neutrophils/100 WBC (Bld) 54.6 % 47-70 [facility] Nitrite Test strip Ql (U)Ord ered By: Jatin Garcia on 04-09-2025 Nitrite Ql (U) Negative Negative [facility] Nucleated red blood cell per centageOrdered By: Jatin Garcia on 04-09-2025 Nucleated RBC/100 WBC (Bld) [Ratio] 0 % 0-5 [facility] Platelet countOrdered By: Sammy Garcia on 04-09-2025 Platelets (Bld) [#/Vol] 297 10*3/uL 150-450 [facility] Potassium measurement (mass/ volume)Ordered By: Jatin Garcia on 04-09-2025 Potassium (Unsp spec) [Mass/Vol] 3.4 mmol/L 3.3-5.1 [facility] Protein Test strip Ql (U)Ord ered By: Jatin Garcia on 04-09-2025 Protein Ql (U) Negative Negative [facility] RBC Auto (Bld) [#/Vol]Ordere d By: Jatin Garcia on 04-09-2025 RBC (Bld) [#/Vol] 3.81 10*6/uL Low 4.2-5.4 [facility] Serum creatinine measurement (mass/volume)Ordered By: Jatin Garcia on 04-09-2025 Creatinine [Mass/Vol] 0.96 mg/dL 0.70-1.20 [facility] Serum glucose measurement (m ass/volume)Ordered By: Jatin Garcia on 04-09-2025 Glucose [Mass/Vol] 120 mg/dL High 70-99 [facility] Serum or plasma calcium zach urement (mass/volume)Ordered By: Jatin Garcia on 04-09-2025 Calcium [Mass/Vol] 9.1 mg/dL 7.6-11.0 [facility] Serum or plasma urea nitroge n measurement (mass/volume)Ordered By: Jatin Garcia on 04-09-2025 Urea nitrogen [Mass/Vol] 9 mg/dL 4-19 [facility] Sodium levelOrdered By: Gilbert Garcia on 04-09-2025 Sodium [Moles/Vol] 140 mmol/L 133-145 [facility] Squamous epithelial cells de tection in urine sediment by light microscopyOrdered By: Jatin Garcia on 04-09-2025 Epithelial cells.squamous LM Ql (Urine sed) 0-5 SEEN /hpf 5-10 [facility] Urinalysis, Completeon 04-09 EPI,SQUAMOUS 0-5 SEEN Normal 5-10 [facility] Comment on above: Order Comment: YOSELIN CTOR TO SPECIFY Performed By: #### L 400.0001 #### [facility] [address] [place], [address] WBC 0-5 SEEN Normal 0-5 [facility] Comment on above: Order Comment: YOSELIN CTOR TO SPECIFY Performed By: #### L 400.0001 #### [facility] [address] [place], [address] BACTERIA 0 SEEN Normal None Seen [facility] Comment on above: Order Comment: YOSELIN CTOR TO SPECIFY Performed By: #### L 400.0001 #### [facility] [address] [place], [address] Mucus Ql (Urine sed) 0 SEEN Normal [facility] Comment on above: Order Comment: YOSELIN CTOR TO SPECIFY Performed By: #### L 400.0001 #### [facility] [address] [place], [address] RBC 0 SEEN Normal 0-5 [facility] Comment on above: Order Comment: YOSELIN CTOR TO SPECIFY Performed By: #### L 400.0001 #### [facility] [address] [place], [address] Urine clarityOrdered By: Angel Garcia on 04-09-2025 Clarity (U) Clear Clear [facility] Urine color determinationOrd ered By: Jatin Garcia on 04-09-2025 Color (U) Straw Yellow [facility] Urine glucose detectionOrder ed By: Jatin Garcia on 04-09-2025 Glucose Ql (U) Normal mg/dl Normal [facility] Urine leukocyte esterase det ection by dipstickOrdered By: Jatin Garcia on 04-09-2025 Leukocyte esterase Test strip Ql (U) Negative Negative [facility] Urine pHOrdered By: Jatin Garcia on 04-09-2025 pH (U) 6.0 [pH] 5.0 - 8.0 [facility] Urine sediment bacteria coun t by microscopy (number/high power field)Ordered By: Jatin Garcia on 04-09-2025 Bacteria LM.HPF (Urine sed) [#/Area] 0 /[HPF] None Seen [facility] Urine specific gravity measu rementOrdered By: Jatinshana Garcia on 04-09-2025 Specific gravity (U) [Rel density] 1.010 1.002-1.030 [facility] Urine urobilinogen measureme ntOrdered By: Jatin Garcia on 04-09-2025 Urobilinogen Ql (U) Normal mg/dl Normal [facility] White blood cell (WBC) count Ordered By: Jatin Garcia on 04-09-2025 WBC (Bld) [#/Vol] 8.7 10*3/uL 4.4-11.0 [facility] White blood cell countOrdere d By: Jatin Garcia on 04-09-2025 White blood cell count 0-5 SEEN /hpf 0-5 [facility] .Auto Diffon 04-07-2025 Basophil, Absolute 0.1 10 3/mcL Normal 0.0-0.3 [facility] Comment on above: Performed By: #### G FR, LAC, ADIFF, ANEU, BMP, CBC, MG ####[address] [address] Basophils/100 WBC (Bld) 1.1 % Normal 0.0-2.5 [facility] Comment on above: Performed By: #### G FR, LAC, ADIFF, ANEU, BMP, CBC, MG ####[place] [address] [place] [address] Eosinophil, Absolute 0.2 10 3/mcL Normal 0.0-0.7 [facility] Comment on above: Performed By: #### G FR, LAC, ADIFF, ANEU, BMP, CBC, MG ####[address] [address] Eosinophils/100 WBC (Bld) 3.8 % Normal 0.0-6.0 [facility] Comment on above: Performed By: #### G FR, LAC, ADIFF, ANEU, BMP, CBC, MG ####[address] [address] Lymphocyte, Absolute 2.1 10 3/mcL Normal 0.9-4.3 [facility] Comment on above: Performed By: #### G FR, LAC, ADIFF, ANEU, BMP, CBC, MG ####[address] [address] Lymphocytes/100 WBC (Bld) 32.4 % Normal 20.0-40.0 [facility] Comment on above: Performed By: #### G FR, LAC, ADIFF, ANEU, BMP, CBC, MG ####[address] [address] Monocyte, Absolute 0.6 10 3/mcL Normal 0.1-1.4 [facility] Comment on above: Performed By: #### G FR, LAC, ADIFF, ANEU, BMP, CBC, MG ####[address] [address] Monocytes/100 WBC (Bld) 8.9 % Normal 2.0-13.0 [facility] Comment on above: Performed By: #### G FR, LAC, ADIFF, ANEU, BMP, CBC, MG ####[address] [address] Neutrophils/100 WBC (Bld) 53.8 % Normal 50.0-75.0 [facility] Comment on above: Performed By: #### G FR, LAC, ADIFF, ANEU, BMP, CBC, MG ####[address] [address] .GFRon 04-07-2025 Estimated Glomerular Filtration Rate 87 ml/min/1.73sqm Normal [facility] Comment on above: Result Comment: Stag [...] FR, LAC, ADIFF, ANEU, BMP, CBC, MG ####[address] [address] .NEUABSon 04-07-2025 Neutrophil, Absolute 3.5 10 3/mcL Normal 2.3-8.1 [facility] Comment on above: Performed By: #### G FR, LAC, ADIFF, ANEU, BMP, CBC, MG ####[address] [address] BMPon 04-07-2025 BUN/Creatinine Ratio 10.2 ratio Normal 10.0-22.0 [facility] Comment on above: Performed By: #### G FR, LAC, ADIFF, ANEU, BMP, CBC, MG ####[place] [address] Calcium [Mass/Vol] 9.4 mg/dL Normal 8.7-10.4 [facility] Comment on above: Performed By: #### G FR, LAC, ADIFF, ANEU, BMP, CBC, MG ####[address] [address] Chloride [Moles/Vol] 110 mmol/L Normal 98-110 [facility] Comment on above: Performed By: #### G FR, LAC, ADIFF, ANEU, BMP, CBC, MG ####[address] [address] CO2 [Moles/Vol] 27 mmol/L Normal 22-32 [facility] Comment on above: Performed By: #### G FR, LAC, ADIFF, ANEU, BMP, CBC, MG ####[address] [address] Creatinine [Mass/Vol] 0.88 mg/dL Normal 0.50-1.20 [facility] Comment on above: Result Comment: Test ing performed on Parakey analyzer using enzymatic creatinine methodology. Performed By: #### G FR, LAC, ADIFF, ANEU, BMP, CBC, MG ####[place] [address] Electrolyte Balance 6.0 mEq/L Normal 4.0-15.0 [facility] Comment on above: Performed By: #### G FR, LAC, ADIFF, ANEU, BMP, CBC, MG ####[place] [address] Glucose [Mass/Vol] 101 mg/dL Normal 70-110 [facility] Comment on above: Performed By: #### G FR, LAC, ADIFF, ANEU, BMP, CBC, MG ####[place] [address] Potassium [Moles/Vol] 3.6 mmol/L Normal 3.5-5.0 [facility] Comment on above: Performed By: #### G FR, LAC, ADIFF, ANEU, BMP, CBC, MG ####[place] [address] Sodium [Moles/Vol] 143 mmol/L Normal 136-145 [facility] Comment on above: Performed By: #### G FR, LAC, ADIFF, ANEU, BMP, CBC, MG ####[place] [address] Urea nitrogen [Mass/Vol] 9.0 mg/dL Normal 8.0-22.0 [facility] Comment on above: Performed By: #### G FR, LAC, ADIFF, ANEU, BMP, CBC, MG ####[place] [address] CBCon 04-07-2025 Erythrocyte distribution width (RBC) [Ratio] 15.2 % Normal 11.5-15.5 [facility] Comment on above: Performed By: #### G FR, LAC, ADIFF, ANEU, BMP, CBC, MG ####[address] [address] Hematocrit (Bld) [Volume fraction] 38.2 % Normal 34.0-46.0 [facility] Comment on above: Performed By: #### G FR, LAC, ADIFF, ANEU, BMP, CBC, MG ####[place] [address] Hgb 13.2 G/dL Normal 12.0-16.0 [facility] Comment on above: Performed By: #### G FR, LAC, ADIFF, ANEU, BMP, CBC, MG ####[place] [address] MCH (RBC) [Entitic mass] 33.2 pg High 27.0-33.0 [facility] Comment on above: Performed By: #### G FR, LAC, ADIFF, ANEU, BMP, CBC, MG ####[place] [address] MCHC 34.6 G/dL Normal 32.0-36.0 [facility] Comment on above: Performed By: #### G FR, LAC, ADIFF, ANEU, BMP, CBC, MG ####[place] [address] MCV (RBC) [Entitic vol] 95.8 fL Normal 80.0-99.0 [facility] Comment on above: Performed By: #### G FR, LAC, ADIFF, ANEU, BMP, CBC, MG ####[place] [address] Platelet 335 10 3/mcL Normal 150-450 [facility] Comment on above: Performed By: #### G FR, LAC, ADIFF, ANEU, BMP, CBC, MG ####[place] [address] Platelet mean volume (Bld) [Entitic vol] 7.4 fL Normal 6.6-10.5 [facility] Comment on above: Performed By: #### G FR, LAC, ADIFF, ANEU, BMP, CBC, MG ####[place] [address] RBC 3.99 10 6/mcL Low 4.10-5.30 [facility] Comment on above: Performed By: #### G FR, LAC, ADIFF, ANEU, BMP, CBC, MG ####[place] [address] [place] [address] WBC 6.4 10 3/mcL Normal 4.5-10.8 [facility] Comment on above: Performed By: #### G FR, LAC, ADIFF, ANEU, BMP, CBC, MG ####[place] [address] [place] [address] LABORATORYOrdered By: SYSTEM SYSTEM on 04-07-2025 Basophils [...] above: Interpretive Data: T esting performed on Parakey analyzer using enzymatic creatinine methodology. Electrolyte Balance 6.0 mEq/L Normal 4.0 - 15 .0 mEq/L ADM SS Eosinophils (Bld) [#/Vol] 0.2 103/mcL Normal 0.0 - 0.7 10^3/mcL Workflow SS Eosinophils/100 WBC (Bld) 3.8 % Normal 0.0 - 6.0 % Workflow SS Erythrocyte distribution width (RBC) [Ratio] 15.2 % Normal 11.5 - 15.5 % Workflow SS Estimated Glomerular Filtration Rate 87 [...] mmol/L AH ADM SS Lymphocytes (Bld) [#/Vol] 2.1 103/mcL [...] 3.6 mmol/L Normal 3.5 - 5.0 mEq/L AH ADM SS RBC (Bld) [#/Vol] 3.99 106/mcL Low 4.10 - 5.3 0 10^6/mcL Workflow SS Sodium [Moles/Vol] 143 mmol/L Normal 136 - 145 mEq/L ADM SS Urea nitrogen [Mass/Vol] 9.0 mg/dL Normal 8.0 - 22.0 mg/dL AH ADM SS Urea nitrogen/Creatinine [Mass ratio] 10.2 ratio Normal 10.0 - 22.0 ratio AH ADM SS WBC (Bld) [#/Vol] 6.4 103/mcL Normal 4.5 - 10.8 10^3/mcL Workflow SS LACon 04-07-2025 Lactic Acid Lvl 0.5 mmol/L Normal 0.5-2.2 [facility] Comment on above: Performed By: #### G FR, LAC, ADIFF, ANEU, BMP, CBC, MG ####[place] [address] MGon 04-07-2025 Magnesium [Mass/Vol] 2.1 mg/dL Normal 1.6-2.4 [facility] Comment on above: Performed By: #### G FR, LAC, ADIFF, ANEU, BMP, CBC, MG ####[address] [address] .Auto Diffon 04-06-2025 Basophil, Absolute 0.1 10 3/mcL Normal 0.0-0.3 [facility] Comment on above: Performed By: #### A DIFF, ANEU, CBC, GFR, BMP, MDW ####[place] [address] Basophils/100 WBC (Bld) 1.3 % Normal 0.0-2.5 [facility] Comment on above: Performed By: #### A DIFF, ANEU, CBC, GFR, BMP, MDW ####[place] [address] Eosinophil, Absolute 0.1 10 3/mcL Normal 0.0-0.7 [facility] Comment on above: Performed By: #### A DIFF, ANEU, CBC, GFR, BMP, W ####[address] [address] Eosinophils/100 WBC (Bld) 1.5 % Normal 0.0-6.0 [facility] Comment on above: Performed By: #### A DIFF, ANEU, CBC, GFR, BMP, W ####[address] [address] Lymphocyte, Absolute 2.0 10 3/mcL Normal 0.9-4.3 [facility] Comment on above: Performed By: #### A DIFF, ANEU, CBC, GFR, BMP, W ####[address] [address] Lymphocytes/100 WBC (Bld) 20.5 % Normal 20.0-40.0 [facility] Comment on above: Performed By: #### A DIFF, ANEU, CBC, GFR, BMP, YOUNG ####[address] [address] Monocyte, Absolute 0.8 10 3/mcL Normal 0.1-1.4 [facility] Comment on above: Performed By: #### A DIFF, ANEU, CBC, GFR, BMP, YOUNG ####[address] [address] Monocytes/100 WBC (Bld) 7.9 % Normal 2.0-13.0 [facility] Comment on above: Performed By: #### A DIFF, ANEU, CBC, GFR, BMP, YOUNG ####[address] [address] Neutrophils/100 WBC (Bld) 68.8 % Normal 50.0-75.0 [facility] Comment on above: Performed By: #### A DIFF, ANEU, CBC, GFR, BMP, YOUNG ####[address] [address] .GFRon 04-06-2025 Estimated Glomerular Filtration Rate 80 ml/min/1.73sqm Normal [facility] Comment on above: Result Comment: Stag [...] A DIFF, ANEU, CBC, GFR, BMP, MDW ####[address] [address] .MDWon 04-06-2025 Monocyte Distribution Width 21.04 High 0.00-20.00 [facility] Comment on above: Result Comment: For adults in ED, MDW>20.0 may be associated with a higher risk of sepsis during the first 12hrs of hospital admission Performed By: #### A DIFF, ANEU, CBC, GFR, BMP, MDW ####[place] [address] .NEUABSon 04-06-2025 Neutrophil, Absolute 6.8 10 3/mcL Normal 2.3-8.1 [facility] Comment on above: Performed By: #### A DIFF, ANEU, CBC, GFR, BMP, MDW ####[place] [address] BMPon 04-06-2025 BUN/Creatinine Ratio 10.5 ratio Normal 10.0-22.0 [facility] Comment on above: Performed By: #### A DIFF, ANEU, CBC, GFR, BMP, MDW ####[place] [address] Calcium [Mass/Vol] 9.6 mg/dL Normal 8.7-10.4 [facility] Comment on above: Performed By: #### A DIFF, ANEU, CBC, GFR, BMP, MDW ####[place] [address] Chloride [Moles/Vol] 108 mmol/L Normal 98-110 [facility] Comment on above: Performed By: #### A DIFF, ANEU, CBC, GFR, BMPYOUNG ####[address] [address] CO2 [Moles/Vol] 28 mmol/L Normal 22-32 [facility] Comment on above: Performed By: #### A DIFF, ANEU, CBC, GFR, BMPYOUNG ####[address] [address] Creatinine [Mass/Vol] 0.95 mg/dL Normal 0.50-1.20 [facility] Comment on above: Result Comment: Test ing performed on Parakey analyzer using enzymatic creatinine methodology. Performed By: #### A DIFF, ANEU, CBC, GFR, BMPYOUNG ####[address] [address] Electrolyte Balance 4.0 mEq/L Normal 4.0-15.0 [facility] Comment on above: Performed By: #### A DIFF, ANEU, CBC, GFR, YOUNG FREGOSO ####[place] [address] Glucose [Mass/Vol] 84 mg/dL Normal 70-110 [facility] Comment on above: Performed By: #### A DIFF, ANEU, CBC, GFR, YOUNG FREGOSO ####[address] [address] Potassium [Moles/Vol] 4.4 mmol/L Normal 3.5-5.0 [facility] Comment on above: Performed By: #### A DIFF, ANEU, CBC, GFR, BMPYOUNG ####[place] [id number] Sodium [Moles/Vol] 140 mmol/L Normal 136-145 [facility] Comment on above: Performed By: #### A DIFF, ANEU, CBC, GFR, BMPYOUNG ####[place] [id number] Urea nitrogen [Mass/Vol] 10.0 mg/dL Normal 8.0-22.0 [facility] Comment on above: Performed By: #### A DIFF, ANEU, CBC, GFR, BMP, MDW ####[place] [address] CBCon 04-06-2025 Erythrocyte distribution width (RBC) [Ratio] 15.2 % Normal 11.5-15.5 [facility] Comment on above: Performed By: #### A DIFF, ANEU, CBC, GFR, BMP, W ####[place] [address] Hematocrit (Bld) [Volume fraction] 40.7 % Normal 34.0-46.0 [facility] Comment on above: Performed By: #### A DIFF, ANEU, CBC, GFR, BMP, W ####[place] [address] Hgb 13.7 G/dL Normal 12.0-16.0 [facility] Comment on above: Performed By: #### A DIFF, ANEU, CBC, GFR, BMP, W ####[place] [address] MCH (RBC) [Entitic mass] 32.5 pg Normal 27.0-33.0 [facility] Comment on above: Performed By: #### A DIFF, ANEU, CBC, GFR, BMP, YOUNG ####[place] [address] MCHC 33.8 G/dL Normal 32.0-36.0 [facility] Comment on above: Performed By: #### A DIFF, ANEU, CBC, GFR, BMP, MDW ####[place] [address] MCV (RBC) [Entitic vol] 96.3 fL Normal 80.0-99.0 [facility] Comment on above: Performed By: #### A DIFF, ANEU, CBC, GFR, BMP, W ####[place] [address] Platelet 329 10 3/mcL Normal 150-450 [facility] Comment on above: Performed By: #### A DIFF, ANEU, CBC, GFR, BMP, MDW ####[place] [address] Platelet mean volume (Bld) [Entitic vol] 7.5 fL Normal 6.6-10.5 [facility] Comment on above: Performed By: #### A DIFF, ANEU, CBC, GFR, ZENOBIA, YOUNG ####[place] [address] RBC 4.22 10 6/mcL Normal 4.10-5.30 [facility] Comment on above: Performed By: #### A DIFF, ANEU, CBC, GFR, ZENOBIA, YOUNG ####[place] [address] WBC 9.9 10 3/mcL Normal 4.5-10.8 [facility] Comment on above: Performed By: #### A DIFF, ANEU, CBC, GFR, ZENOBIA, YOUNG ####[place] [address] LABORATORYOrdered By: SYSTEM SYSTEM on 04-06-2025 Basophils [...] above: Interpretive Data: T esting performed on Parakey analyzer using enzymatic creatinine methodology. Electrolyte Balance 4.0 mEq/L Normal 4.0 - 15 .0 mEq/L ADM SS Eosinophils (Bld) [#/Vol] 0.1 103/mcL Normal 0.0 - 0.7 10^3/mcL AH Workflow SS Eosinophils/100 WBC (Bld) 1.5 % Normal 0.0 - 6.0 % Workflow SS Erythrocyte distribution width (RBC) [Ratio] 15.2 % Normal 11.5 - 15.5 % Workflow SS Estimated Glomerular Filtration Rate 80 [...] mg/dL ADM SS Hematocrit (Bld) [Volume fraction] 40.7 [...] SS UAon 04-06-2025 Color (U) Yellow Normal [facility] Comment on above: Performed By: #### U A ####[place] [address] Glucose (U) [Mass/Vol] Negative Normal Negative [facility] Comment on above: Performed By: #### U A ####[place] [address] Ketones Ql (U) Negative Normal Neg-Trace [facility] Comment on above: Performed By: #### U A ####[place] [address] UA Appear Clear Normal Clear [facility] Comment on above: Performed By: #### U A ####[place] [address] UA Blood Negative Normal Neg-Trace [facility] Comment on above: Performed By: #### U A ####[place] [address] UA Leuk Est Negative Normal Negative [facility] Comment on above: Performed By: #### U A ####[place] [address] UA Nitrite Negative Normal Negative [facility] Comment on above: Performed By: #### U A ####[place] [address] UA pH 6.5 Normal 5.0 - 8.0 [facility] Comment on above: Performed By: #### U A ####[place] [address] UA Protein Negative Normal Negative [facility] Comment on above: Performed By: #### U A ####[place] [address] UA Spec Grav <=1.005 Abnormal 1.006-1.029 [facility] Comment on above: Performed By: #### U A ####[place] [address] UA Specimen Type Clean Catch Normal [facility] Comment on above: Performed By: #### U A ####[place] [address] UA Urobilinogen 0.2 E.U./dL Normal 0.2-1.0 [facility] Comment on above: Performed By: #### U A ####[place] [address] Urobilinogen (U) [Mass/Vol] Negative Normal Neg-Trace [facility] Comment on above: Performed By: #### U A ####[place] [address] US RENALon 04-06-2025 US RENAL Normal [facility] XR ABDOMEN APon 04-06-2025 XR ABDOMEN AP Normal [facility] .Auto Diffon 04-05-2025 Basophil, Absolute 0.1 10 3/mcL Normal 0.0-0.3 [facility] Comment on above: Performed By: #### B MP, GFR, ANEU, CBC, ADIFF ####[place] [id number] Basophils/100 WBC (Bld) 1.4 % Normal 0.0-2.5 [facility] Comment on above: Performed By: #### B MP, GFR, ANEU, CBC, ADIFF ####[place] [address] Eosinophil, Absolute 0.3 10 3/mcL Normal 0.0-0.7 [facility] Comment on above: Performed By: #### B MP, GFR, ANEU, CBC, ADIFF ####[address] [address] Eosinophils/100 WBC (Bld) 3.7 % Normal 0.0-6.0 [facility] Comment on above: Performed By: #### B MP, GFR, ANEU, CBC, ADIFF ####[place] [id number] Lymphocyte, Absolute 2.2 10 3/mcL Normal 0.9-4.3 [facility] Comment on above: Performed By: #### B MP, GFR, ANEU, CBC, ADIFF ####[address] [address] Lymphocytes/100 WBC (Bld) 31.9 % Normal 20.0-40.0 [facility] Comment on above: Performed By: #### B MP, GFR, ANEU, CBC, ADIFF ####[address] [address] Monocyte, Absolute 0.7 10 3/mcL Normal 0.1-1.4 [facility] Comment on above: Performed By: #### B MP, GFR, ANEU, CBC, ADIFF ####[address] [address] Monocytes/100 WBC (Bld) 9.8 % Normal 2.0-13.0 [facility] Comment on above: Performed By: #### B MP, GFR, ANEU, CBC, ADIFF ####[address] [address] Neutrophils/100 WBC (Bld) 53.2 % Normal 50.0-75.0 [facility] Comment on above: Performed By: #### B MP, GFR, ANEU, CBC, ADIFF ####[address] [address] .GFRon 04-05-2025 Estimated Glomerular Filtration Rate 96 ml/min/1.73sqm Normal [facility] Comment on above: Result Comment: Stag [...] #### B MP, GFR, ANEU, CBC, ADIFF ####[address] [address] .NEUABSon 04-05-2025 Neutrophil, Absolute 3.7 10 3/mcL Normal 2.3-8.1 [facility] Comment on above: Performed By: #### B MP, GFR, ANEU, CBC, ADIFF ####[address] [address] BMPon 04-05-2025 BUN/Creatinine Ratio 12.3 ratio Normal 10.0-22.0 [facility] Comment on above: Order Comment: Routi ne for 0501 the morning of patient admission. Performed By: #### B MP, GFR, ANEU, CBC, ADIFF ####[place] [id number] Calcium [Mass/Vol] 8.9 mg/dL Normal 8.7-10.4 [facility] Comment on above: Order Comment: Routi ne for 0501 the morning of patient admission. Performed By: #### B MP, GFR, ANEU, CBC, ADIFF ####[place] [id number] Chloride [Moles/Vol] 110 mmol/L Normal 98-110 [facility] Comment on above: Order Comment: Routi ne for 0501 the morning of patient admission. Performed By: #### B MP, GFR, ANEU, CBC, ADIFF ####[place] [id number] CO2 [Moles/Vol] 26 mmol/L Normal 22-32 [facility] Comment on above: Order Comment: Routi ne for 0501 the morning of patient admission. Performed By: #### B MP, GFR, ANEU, CBC, ADIFF ####[place] [id number] Creatinine [Mass/Vol] 0.81 mg/dL Normal 0.50-1.20 [facility] Comment on above: Order Comment: Routi ne for 0501 the morning of patient admission. Result Comment: Test ing performed on Parakey analyzer using enzymatic creatinine methodology. Performed By: #### B MP, GFR, ANEU, CBC, ADIFF ####[address] [address] Electrolyte Balance 5.0 mEq/L Normal 4.0-15.0 [facility] Comment on above: Order Comment: Routi ne for 0501 the morning of patient admission. Performed By: #### B MP, GFR, ANEU, CBC, ADIFF ####[address] [address] Glucose [Mass/Vol] 84 mg/dL Normal 70-110 [facility] Comment on above: Order Comment: Routi ne for 0501 the morning of patient admission. Performed By: #### B MP, GFR, ANEU, CBC, ADIFF ####[place] [phone] Potassium [Moles/Vol] 4.2 mmol/L Normal 3.5-5.0 [facility] Comment on above: Order Comment: Routi ne for 0501 the morning of patient admission. Result Comment: Spec imen slightly hemolyzed. Performed By: #### B MP, GFR, ANEU, CBC, ADIFF ####[place] [phone] Sodium [Moles/Vol] 141 mmol/L Normal 136-145 [facility] Comment on above: Order Comment: Routi ne for 0501 the morning of patient admission. Performed By: #### B MP, GFR, ANEU, CBC, ADIFF ####[place] [phone] Urea nitrogen [Mass/Vol] 10.0 mg/dL Normal 8.0-22.0 [facility] Comment on above: Order Comment: Routi ne for 0501 the morning of patient admission. Performed By: #### B MP, GFR, ANEU, CBC, ADIFF ####[place] [id number] CBCon 04-05-2025 Erythrocyte distribution width (RBC) [Ratio] 15.6 % High 11.5-15.5 [facility] Comment on above: Order Comment: Routi ne for 0501 the morning of patient admission. Performed By: #### B MP, GFR, ANEU, CBC, ADIFF ####[place] [address] Hematocrit (Bld) [Volume fraction] 37.4 % Normal 34.0-46.0 [facility] Comment on above: Order Comment: Routi ne for 0501 the morning of patient admission. Performed By: #### B MP, GFR, ANEU, CBC, ADIFF ####[place] [address] Hgb 12.7 G/dL Normal 12.0-16.0 [facility] Comment on above: Order Comment: Routi ne for 0501 the morning of patient admission. Performed By: #### B MP, GFR, ANEU, CBC, ADIFF ####[place] [address] MCH (RBC) [Entitic mass] 32.9 pg Normal 27.0-33.0 [facility] Comment on above: Order Comment: Routi ne for 0501 the morning of patient admission. Performed By: #### B MP, GFR, ANEU, CBC, ADIFF ####[place] [address] MCHC 34.0 G/dL Normal 32.0-36.0 [facility] Comment on above: Order Comment: Routi ne for 0501 the morning of patient admission. Performed By: #### B MP, GFR, ANEU, CBC, ADIFF ####[place] [address] MCV (RBC) [Entitic vol] 96.7 fL Normal 80.0-99.0 [facility] Comment on above: Order Comment: Routi ne for 0501 the morning of patient admission. Performed By: #### B MP, GFR, ANEU, CBC, ADIFF ####[place] [address] Platelet 369 10 3/mcL Normal 150-450 [facility] Comment on above: Order Comment: Routi ne for 0501 the morning of patient admission. Performed By: #### B MP, GFR, ANEU, CBC, ADIFF ####[place] [address] Platelet mean volume (Bld) [Entitic vol] 7.7 fL Normal 6.6-10.5 [facility] Comment on above: Order Comment: Routi ne for 0501 the morning of patient admission. Performed By: #### B MP, GFR, ANEU, CBC, ADIFF ####[facility] [place] [address] RBC 3.87 10 6/mcL Low 4.10-5.30 [facility] Comment on above: Order Comment: Routi ne for 0501 the morning of patient admission. Performed By: #### B MP, GFR, ANEU, CBC, ADIFF ####[facility] [place] [address] WBC 7.0 10 3/mcL Normal 4.5-10.8 [facility] Comment on above: Order Comment: Routi ne for 0501 the morning of patient admission. Performed By: #### B MP, GFR, ANEU, CBC, ADIFF ####[place] [address] [address] [place] [address] CURon 04-05-2025 [facility] MAIN LABORATORYOrdered By: SYSTEM SYSTEM on 04-05-2025 Basophils (Bld) [#/Vol] 0.1 103/mcL Normal 0.0 - 0.3 10^3/mcL AH Workflow SS Basophils/100 WBC (Bld) 1.4 % Normal 0.0 - 2.5 % AH Workflow SS Calcium [Mass/Vol] 8.9 mg/dL Normal 8.7 - 10. 4 mg/dL ADM SS Chloride [Moles/Vol] 110 mmol/L Normal 98 - 11 0 mEq/L ADM SS CO2 [Moles/Vol] 26 mmol/L Normal 22 - 32 mEq/L ADM SS Creatinine [Mass/Vol] 0.81 mg/dL Normal 0.50 - 1.20 mg/dL ADM SS Comment on above: Interpretive Data: T esting performed on Parakey analyzer using enzymatic creatinine methodology. Electrolyte Balance [...] 53.2 % Normal 50.0 - 75.0 % Workflow [...] 5.3 0 10^6/mcL Workflow SS Sodium [Moles/Vol] 141 mmol/L Normal 136 - 145 mEq/L ADM SS Urea nitrogen [Mass/Vol] 10.0 mg/dL Normal 8.0 - 22.0 mg/dL ADM SS Urea nitrogen/Creatinine [Mass ratio] 12.3 ratio Normal 10.0 - 22.0 ratio ADM SS WBC (Bld) [#/Vol] 7.0 103/mcL Normal 4.5 - 10.8 10^3/mcL Workflow SS .Auto Diffon 04-04-2025 Basophil, Absolute 0.2 10 3/mcL Normal 0.0-0.3 [facility] Comment on above: Performed By: #### C LARISA BMP, GFRGURMEET ADIFF, MDW ####[address] [address] Basophils/100 WBC (Bld) 1.4 % Normal 0.0-2.5 [facility] Comment on above: Performed By: #### C BC BMP, GFRGURMEET ADIFF, MDW ####[address] [address] Eosinophil, Absolute 0.2 10 3/mcL Normal 0.0-0.7 [facility] Comment on above: Performed By: #### C ZENOBIA PERES GFRGURMEET ADIFF, MDW ####[address] [address] Eosinophils/100 WBC (Bld) 1.3 % Normal 0.0-6.0 [facility] Comment on above: Performed By: #### C BC, BMP, GFR, CHEN LEVI MDW ####[address] [address] Lymphocyte, Absolute 2.3 10 3/mcL Normal 0.9-4.3 [facility] Comment on above: Performed By: #### C BC, BMP, GFR, ANEUCHEN MDW ####[address] [address] Lymphocytes/100 WBC (Bld) 20.4 % Normal 20.0-40.0 [facility] Comment on above: Performed By: #### C BC, BMP, GFR, ANEUCHEN MDW ####[address] [address] Monocyte, Absolute 1.1 10 3/mcL Normal 0.1-1.4 [facility] Comment on above: Performed By: #### C BC, BMP, GFR, CHEN LEVI MDW ####[address] [address] Monocytes/100 WBC (Bld) 9.3 % Normal 2.0-13.0 [facility] Comment on above: Performed By: #### C BC, BMP, GFR, CHEN LVEI MDW ####[address] [address] Neutrophils/100 WBC (Bld) 67.6 % Normal 50.0-75.0 [facility] Comment on above: Performed By: #### C BC, BMP, GFR, CHEN LEVI MDW ####[address] [address] .GFRon 04-04-2025 Estimated Glomerular Filtration Rate 92 ml/min/1.73sqm Normal [facility] Comment on above: Result Comment: Stag [...] C BC, BMP, GFR, CHEN LEVI MDW ####[address] [address] .MDWon 04-04-2025 Monocyte Distribution Width 18.36 Normal 0.00-20.00 [facility] Comment on above: Result Comment: For ED adult patients suspected of sepsis, MDW<=20.0 does not rule out sepsis or risk of sepsis Performed By: #### C BC, BMP, GFR, CHEN LEVI MDW ####[place] [address] .NEUABSon 04-04-2025 Neutrophil, Absolute 7.8 10 3/mcL Normal 2.3-8.1 [facility] Comment on above: Performed By: #### C BC, BMP, GFR, CHEN LEVI MDW ####[place] [address] BMPon 04-04-2025 BUN/Creatinine Ratio 14.3 ratio Normal 10.0-22.0 [facility] Comment on above: Performed By: #### C BC, BMP, GFR, CHEN LEVI MDW ####[address] [address] Calcium [Mass/Vol] 10.2 mg/dL Normal 8.7-10.4 [facility] Comment on above: Performed By: #### C BC, BMP, GFR, CHEN LEVI MDW ####[place] [address] Chloride [Moles/Vol] 108 mmol/L Normal 98-110 [facility] Comment on above: Performed By: #### C BC, BMP, GFR, CHEN LEVI MDW ####[address] [address] CO2 [Moles/Vol] 27 mmol/L Normal 22-32 [facility] Comment on above: Performed By: #### C LARISA, BMP, GFR, CHEN LEVI MDW ####[address] [address] Creatinine [Mass/Vol] 0.84 mg/dL Normal 0.50-1.20 [facility] Comment on above: Result Comment: Test ing performed on Parakey analyzer using enzymatic creatinine methodology. Performed By: #### C BC, BMP, GFR, CHEN LEVI MDW ####[place] [address] Electrolyte Balance 6.0 mEq/L Normal 4.0-15.0 [facility] Comment on above: Performed By: #### C BC, BMP, GFR, CHEN LEVI MDW ####[address] [address] Glucose [Mass/Vol] 78 mg/dL Normal 70-110 [facility] Comment on above: Performed By: #### C BC, BMP, GFR, CHEN LEVI MDW ####[place] [address] Potassium [Moles/Vol] 3.8 mmol/L Normal 3.5-5.0 [facility] Comment on above: Performed By: #### C BC, BMP, GFR, CHEN LEVI MDW ####[address] [address] Sodium [Moles/Vol] 141 mmol/L Normal 136-145 [facility] Comment on above: Performed By: #### C BC, BMP, GFR, CHEN LEVI MDW ####[address] [address] Urea nitrogen [Mass/Vol] 12.0 mg/dL Normal 8.0-22.0 [facility] Comment on above: Performed By: #### C BC, BMP, GFR, CHEN LEVI MDW ####[address] [address] CBCon 04-04-2025 Erythrocyte distribution width (RBC) [Ratio] 15.6 % High 11.5-15.5 [facility] Comment on above: Performed By: #### C BC, BMP, GFR, CHEN LEVI MDW ####[place] [address] Hematocrit (Bld) [Volume fraction] 45.3 % Normal 34.0-46.0 [facility] Comment on above: Performed By: #### C BC, BMP, GFR, CHEN LEVI MDW ####[place] [address] Hgb 15.1 G/dL Normal 12.0-16.0 [facility] Comment on above: Performed By: #### C BC, BMP, GFR, CHEN LEVI MDW ####[place] [address] MCH (RBC) [Entitic mass] 32.1 pg Normal 27.0-33.0 [facility] Comment on above: Performed By: #### C BC, BMP, GFR, CHEN LEVI MDW ####[place] [address] MCHC 33.3 G/dL Normal 32.0-36.0 [facility] Comment on above: Performed By: #### C BC, BMP, GFR, CHEN LEVI MDW ####[place] [address] MCV (RBC) [Entitic vol] 96.4 fL Normal 80.0-99.0 [facility] Comment on above: Performed By: #### C BC, BMP, GFR, CHEN LEVI MDW ####[place] [address] Platelet 381 10 3/mcL Normal 150-450 [facility] Comment on above: Performed By: #### C BC, BMP, GFR, CHEN LEVI MDW ####[place] [address] Platelet mean volume (Bld) [Entitic vol] 7.8 fL Normal 6.6-10.5 [facility] Comment on above: Performed By: #### C BC, BMP, GFR, CHEN LEVI MDW ####[address], [place] [address] RBC 4.70 10 6/mcL Normal 4.10-5.30 [facility] Comment on above: Performed By: #### C BC, BMP, GFR, CHEN LEVI MDW ####[facility] [place] [address] WBC 11.5 10 3/mcL High 4.5-10.8 [facility] Comment on above: Performed By: #### C BC, BMP, GFR, CHEN LEVI MDW ####[facility] [place] [address] ABDOMEN/PELVIS W/O CONTRA STon 04-04-2025 CT ABDOMEN/PELVIS W/O CONTRAST Normal [facility] LABORATORYOrdered By: Bel Wetzel on 04-04-2025 Beta HCG ( test) Ql (U) Negative (04/04/25 3:11 PM) [facility] Work Phone: Urine Preg POC Confirmation Sent to lab (04/04/25 3:11 PM) [facility] Work Phone: LABORATORYOrdered By: Jaguar Cisneros on [...] above: Interpretive Data: T esting performed on Parakey analyzer using enzymatic creatinine methodology. Electrolyte Balance [...] Filtration Rate 92 ml/min/1.73sqm Invalid Interpretation Code ADM SS Comment [...] 2.3 103/mcL Normal 0.9 - 4.3 10^3/mcL AH Workflow SS Lymphocytes/100 WBC (Bld) 20.4 % [...] vol] 18.36 1 Normal 0.00 - 20.00 AH Workflow [...] Probable Contamination. Suggest recollection if clinically indicated. [facility] Work Phone: No Panel InformationOrdered By: Jaguar Cisneros on 04-04-2025 UA Nitrite Negative (04/04/25 2:55 PM) Normal Negative AH Auto Urine SS UA Urobilinogen 0.2 E.U./dL Normal 0.2-1.0 AH Auto Urine SS UAon 04-04-2025 Color (U) Yellow Normal [facility] Comment on above: Order Comment: To be taken from nephrostomy Performed By: #### U AMIC, UA ####[place] [address] Glucose (U) [Mass/Vol] Negative Normal Negative [facility] Comment on above: Order Comment: To be taken from nephrostomy Performed By: #### U AMIC, UA ####[place] [address] Ketones Ql (U) Negative Normal Neg-Trace [facility] Comment on above: Order Comment: To be taken from nephrostomy Performed By: #### U AMIC, UA ####[place] [address] UA Appear Cloudy Abnormal Clear [facility] Comment on above: Order Comment: To be taken from nephrostomy Performed By: #### U AMIC, UA ####[place] [address] UA Blood Moderate Abnormal Neg-Trace [facility] Comment on above: Order Comment: To be taken from nephrostomy Performed By: #### U AMIC, UA ####[place] [address] UA Leuk Est Large Abnormal Negative [facility] Comment on above: Order Comment: To be taken from nephrostomy Performed By: #### U AMIC, UA ####[place] [address] UA Nitrite Negative Normal Negative [facility] Comment on above: Order Comment: To be taken from nephrostomy Performed By: #### U AMIC, UA ####[place] [address] UA pH >=8.5 Abnormal 5.0 - 8.0 [facility] Comment on above: Order Comment: To be taken from nephrostomy Performed By: #### U AMIC, UA ####[place] [address] UA Protein 100 mg/dL Abnormal Negative [facility] Comment on above: Order Comment: To be taken from nephrostomy Performed By: #### U AMIC, UA ####[place] [address] UA Spec Grav 1.010 Normal 1.006-1.029 [facility] Comment on above: Order Comment: To be taken from nephrostomy Performed By: #### U AMIC, UA ####[place] [address] UA Specimen Type Not Given [facility] Comment on above: Order Comment: To be taken from nephrostomy Performed By: #### U AMIC, UA ####[place] [address] UA Urobilinogen 0.2 E.U./dL Normal 0.2-1.0 [facility] Comment on above: Order Comment: To be taken from nephrostomy Performed By: #### U AMIC, UA ####[place] [address] Urobilinogen (U) [Mass/Vol] Negative Normal Neg-Trace [facility] Comment on above: Order Comment: To be taken from nephrostomy Performed By: #### U AMIC, UA ####[place] [address] Color (U) Yellow Normal [facility] Comment on above: Performed By: #### U A ####[place] [address] Glucose (U) [Mass/Vol] Negative Normal Negative [facility] Comment on above: Performed By: #### U A ####[place] [address] Ketones Ql (U) Negative Normal Neg-Trace [facility] Comment on above: Performed By: #### U A ####[place] [id number] UA Appear Clear Normal Clear [facility] Comment on above: Performed By: #### U A ####[place] [address] UA Blood Negative Normal Neg-Trace [facility] Comment on above: Performed By: #### U A ####[place] [address] UA Leuk Est Trace Normal Negative [facility] Comment on above: Performed By: #### U A ####[place] [address] UA Nitrite Negative Normal Negative [facility] Comment on above: Performed By: #### U A ####[place] [address] UA pH 6.5 Normal 5.0 - 8.0 [facility] Comment on above: Performed By: #### U A ####[place] [address] UA Protein Negative Normal Negative [facility] Comment on above: Performed By: #### U A ####[place] [address] UA Spec Grav 1.015 Normal 1.006-1.029 [facility] Comment on above: Performed By: #### U A ####[place] [address] UA Specimen Type Clean Catch Normal [facility] Comment on above: Performed By: #### U A ####[place] [address] UA Urobilinogen 0.2 E.U./dL Normal 0.2-1.0 [facility] Comment on above: Performed By: #### U A ####[place] [address] Urobilinogen (U) [Mass/Vol] Negative Normal Neg-Trace [facility] Comment on above: Performed By: #### U A ####[place] [address] UAMICon 04-04-2025 UA Bacteria 2+ /hpf Abnormal Negative [facility] Comment on above: Performed By: #### U AMIC, UA ####[facility] [place] [address] UA RBC 10-20 Abnormal 0-2 [facility] Comment on above: Performed By: #### U AMIC, UA ####[facility] [place] [address] UA Squam Epithelial 3-5 Normal 0-20 [facility] Comment on above: Performed By: #### U AMIC, UA ####[facility] [place] [address] UA Trip Rai Crystals 3+ /hpf Normal [facility] Comment on above: Performed By: #### U AMIC, UA ####[place] [address] [place] [address] UA WBC 10-20 Abnormal 0-5 [facility] Comment on above: Performed By: #### U AMIC, UA ####[place] [address] CBC + DIFFon 04-03-2025 Baso # 0.04 x10EE3/UL Normal 0.00 - 0.10 [facility] Comment on above: Performed By: #### 2 [id number] ####[facility],[address] [place] [address] Basophils/100 WBC (Bld) 0.4 % Normal 0.0 - 2.0 [facility] Comment on above: Performed By: #### 2 [id number] ####[facility],[address] [place] [address] CBC + DIFF Normal [facility] Comment on above: Result Comment: CBC- COMPLETE BLOOD COUNT Performed By: #### 2 [id number] ####[facility],[address] [place] [address] EO # 0.16 x10EE3/UL Normal 0.00 - 0.50 [facility] Comment on above: Performed By: #### 2 [id number] ####[facility],[address] [place] [address] Eosinophils/100 WBC (Bld) 1.6 % Normal 0.0 - 7.0 [facility] Comment on above: Performed By: #### 2 [id number] ####[facility],[address] [place] [address] Erythrocyte distribution width (RBC) [Ratio] 13.9 % Normal 12.0 - 15.6 [facility] Comment on above: Performed By: #### 2 [id number] ####[facility],[address] [place] [address] Hematocrit (Bld) [Volume fraction] 39.2 % Normal 34.0 - 46.0 [facility] Comment on above: Performed By: #### 2 [id number] ####[facility],[address] [place] [address] Hemoglobin (Bld) [Mass/Vol] 13.7 g/dL Normal 12.0 - 16.0 [facility] Comment on above: Performed By: #### 2 [id number] ####[facility],[address] [place] [address] Lymph # 2.51 x10EE3/UL Normal 0.80 - 2.80 [facility] Comment on above: Performed By: #### 2 [id number] ####[facility],[address] [place], [place] [id number] Lymphocytes/100 WBC (Bld) 24.6 % Normal 20.0 - 45.0 [facility] Comment on above: Performed By: #### 2 18582 ####[facility],[address] [place] [address] 98480 MANUAL DIFF N/A Normal [facility] Comment on above: Performed By: #### 2 48957 ####[facility],[address] [place] [address] 86649 MCH (RBC) [Entitic mass] 33 pg Normal 27 - 33 [facility] Comment on above: Performed By: #### 2 41561 ####[facility],[address] [place] [address] MCHC 35 X10 3 Normal 32 - 36 [facility] Comment on above: Performed By: #### 2 92041 ####[facility],[address] [place] [address] MCV (RBC) [Entitic vol] 95 fL Normal 80 - 99 [facility] Comment on above: Performed By: #### 2 87783 ####[facility],[address] [place] [address] [place] # 0.91 x10EE3/UL Normal 0.20 - 1.00 [facility] Comment on above: Performed By: #### 2 09153 ####[facility],[address] [place] [address] MONOS % 8.9 % Normal 0.0 - 10.0 [facility] Comment on above: Performed By: #### 2 65993 ####[facility],[address] [place] [address] Morphology Efra (Bld) [Interp] N/A Normal [facility] Comment on above: Performed By: #### 2 14478 ####[facility],[address] [place] [address] Neut # 6.59 x10EE3/UL Normal 1.50 - 7.10 [facility] Comment on above: Performed By: #### 2 41483 ####[facility],[address] [place] [address] Neutrophils/100 WBC (Bld) 64.6 % Normal 46.0 - 76.0 [facility] Comment on above: Performed By: #### 2 64569 ####[facility],[address] [place] [address] PLATELET 361 x10EE3/UL Normal 150 - 450 [facility] Comment on above: Performed By: #### 2 57000 ####[facility],[address] [place] [address] Platelet mean volume (Bld) [Entitic vol] 7.1 fL Normal 6.6 - 10.5 [facility] Comment on above: Result Comment: AUTO MATED DIFFERENTIAL Performed By: #### 2 69716 ####[facility],[address] [place], [place] [id number] RBC 4.13 x 10EE6/UL Normal 4.10 - 5.30 [facility] Comment on above: Performed By: #### 2 51370 ####[facility],[address] [place], [place] [id number] WBC 10.2 x 10EE3/UL Normal 4.5 - 10.8 [facility] Comment on above: Performed By: #### 2 20113 ####[facility],[address] [place], [place] [id number] CMP with eGFRon 04-03-2025 AGE 34 years Normal [facility] Comment on above: Performed By: #### 2 02461 ####[facility],[address] [place], [place] [id number] Albumin [Mass/Vol] 3.8 g/dL Normal 3.4 - 5.0 [facility] Comment on above: Performed By: #### 2 52142 ####[facility],[address] [place] [address] 90868 Albumin/Globulin [Mass ratio] 1.1 {ratio} Normal 0.9 - 1.6 [facility] Comment on above: Performed By: #### 2 81110 ####[facility],[address] [place] [address] 14299 ALK PHOS 85 U/L Normal 46 - 116 [facility] Comment on above: Performed By: #### 2 37828 ####[facility],[address] [place] [address] 00640 ALT [Catalytic activity/Vol] 14 U/L Low 16 - 63 [facility] Comment on above: Performed By: #### 2 06451 ####[facility],[address] [place] [address] 05729 Anion gap [Moles/Vol] 13 mmol/L Normal 10 - 20 [facility] Comment on above: Performed By: #### 2 14158 ####[facility],[address] [place] [address] 96996 AST [Catalytic activity/Vol] 18 U/L Normal 13 - 39 [facility] Comment on above: Performed By: #### 2 21761 ####[facility],[address] [place] [address] 00081 B/C RATIO 14 ratio Normal 0 - 30 [facility] Comment on above: Performed By: #### 2 69593 ####[facility],[address] [place] [address] 94876 Bilirubin [Mass/Vol] 0.4 mg/dL Normal 0.2 - 1.0 [facility] Comment on above: Performed By: #### 2 76900 ####[facility],[address] [place] [address] 09076 Calcium [Mass/Vol] 9.2 mg/dL Normal 8.5 - 10.1 [facility] Comment on above: Performed By: #### 2 13123 ####[facility],[address] [place] [address] 43900 Chloride [Moles/Vol] 103 mmol/L Normal 98 - 107 [facility] Comment on above: Performed By: #### 2 06205 ####[facility],[address] [place] [address] 96336 CMP with eGFR Normal [facility] Comment on above: Result Comment: COMP REHENSIVE METABOLIC PANEL Performed By: #### 2 73198 ####[facility],[address] [place] [address] 82175 CO2 [Moles/Vol] 25.0 mmol/L Normal 21.0 - 32.0 [facility] Comment on above: Performed By: #### 2 72507 ####[facility],[address] [place] [address] 00887 Creatinine [Mass/Vol] 0.95 mg/dL Normal 0.55 - 1.02 [facility] Comment on above: Performed By: #### 2 73677 ####[facility],[address] [place] [address] 81821 GFR/1.73 sq M.predicted among non-blacks MDRD (S/P/Bld) [Vol rate/Area] mL/min/{1.73_m2} Normal 60 - 999 [facility] Comment on above: Performed By: #### 2 93850 ####[facility],[address] [place] [address] 04751 Result Comment: ACCO RDING TO THE NATIONAL KIDNEY DISEASE EDUCATION PROGRAM(NKDE), A NORMAL eGFRIS A VALUE GREATER THAN OR EQUAL TO 60 ML/MIN/1.73 SQ METERS.CHRONIC KIDNEY DISEASE: <60mL/MIN/1.73 SQ METERSKIDNEY FAILURE: <15mL/MIN/1.73 SQ METERSTHIS TEST SHOULD ONLY BE USED FOR PATIENTS 18 YEARS OF AGE AND OLDER. Globulin (S) [Mass/Vol] 3.5 g/dL Normal 1.5 - 3.8 [facility] Comment on above: Performed By: #### 2 32329 ####[address] [address] Glucose [Mass/Vol] 78 mg/dL Normal 74 - 106 [facility] Comment on above: Performed By: #### 2 01745 ####[facility],[address] [place] [address] 61629 Potassium [Moles/Vol] 4.0 mmol/L Normal 3.5 - 5.1 [facility] Comment on above: Performed By: #### 2 13847 ####[address] [address] Protein [Mass/Vol] 7.3 g/dL Normal 6.4 - 8.2 [facility] Comment on above: Performed By: #### 2 93284 ####[facility],[address] [place], [place] [id number] Sodium [Moles/Vol] 137 mmol/L Normal 136 - 145 [facility] Comment on above: Performed By: #### 2 43958 ####[facility],[address] [place] [address] Urea nitrogen [Mass/Vol] 13 mg/dL Normal 7 - 18 [facility] Comment on above: Performed By: #### 2 39405 ####[facility],[address] [place], [place] [id number] CT ABDOMEN/PELVIS WOon 04-03 CT ABDOMEN/PELVIS WO Normal [facility] ED MED ADMINISTRATION DETAIL on 04-03-2025 ED MED ADMINISTRATION DETAIL Normal [facility] ED NURSES CLINICAL NOTEon ED NURSES CLINICAL NOTE Normal [facility] ED ORDER SHEET (CPOE ONLY)on 04-03-2025 ED ORDER SHEET (CPOE ONLY) Normal [facility] ED PHYSICIAN CLINICAL REPORT on 04-03-2025 ED PHYSICIAN CLINICAL REPORT Normal [facility] ED SUPER BILLon 04-03-2025 ED SUPER BILL Normal [facility] ED VISIT SUMMARYon ED VISIT SUMMARY Normal [facility] ED VITALS FLOW SHEETon 04-03 ED VITALS FLOW SHEET Normal [facility] LACTATEon 04-03-2025 Lactate [Moles/Vol] 0.7 mmol/L Normal 0.4 - 2.0 [facility] Comment on above: Performed By: #### 2 36110 ####[facility],[address] [place], [place] [id number] LIPASEon 04-03-2025 Lipase [Catalytic activity/Vol] 36.0 U/L Normal 15.0 - 78.0 [facility] Comment on above: Result Comment: *PLE ASE NOTE THAT RANGES FOR LIPASE HAVE CHANGED OF 10/31/23 DUE TO AN ASSAYUPDATE BY THE PLC ENGINEER.THE NEW ASSAY RANGE IS 6-250 U/L, WITH A REFERENCERANGE OF 16-77 U/L. Performed By: #### 2 22166 ####[facility],[address] [place], [place] [id number] URINALYSISon 04-03-2025 Bilirubin Ql (U) Negative Normal NORMAL: NEGATIVE [facility] Comment on above: Performed By: #### 2 28428 ####[facility],[address] [place] [address] Clarity (U) clear Normal NORMAL: CLEAR [facility] Comment on above: Performed By: #### 2 30709 ####[facility],[address] [place] [address] Color (U) yellow Normal NORMAL: YELLOW [facility] Comment on above: Performed By: #### 2 96799 ####[facility],[address] [place], [place] [id number] Glucose Ql (U) NORM Normal NORMAL: NORMAL [facility] Comment on above: Performed By: #### 2 93304 ####[facility],[address] [place] [address] 39143 Hemoglobin Ql (U) Negative Normal NORMAL: NEGATIVE [facility] Comment on above: Performed By: #### 2 68619 ####[facility],[address] [place] [address] 13673 Ketone Negative Normal NORMAL: NEGATIVE [facility] Comment on above: Performed By: #### 2 98531 ####[facility],[address] [place] [address] 50415 Leukocytes Negative Normal NORMAL: NEGATIVE [facility] Comment on above: Performed By: #### 2 54386 ####[facility],[address] [place] [address] 75650 Nitrite Ql (U) Negative Normal NORMAL: NEGATIVE [facility] Comment on above: Performed By: #### 2 84608 ####[facility],[address] [place] [address] pH (U) 7 [pH] Normal NORMAL: 5.0-8.0 [facility] Comment on above: Performed By: #### 2 19198 ####[facility],[address] [place] [address] Protein Ql (U) Negative Normal NORMAL: NEGATIVE [facility] Comment on above: Performed By: #### 2 85974 ####[facility],[address] [place] [address] Sp [place] 1.010 Normal NORMAL: 1.010-1.030 [facility] Comment on above: Performed By: #### 2 57287 ####[facility],[address] [place] [address] Specimen Type R Normal [facility] Comment on above: Performed By: #### 2 51127 ####[facility],[address] [place] [address] Urinalysis dipstick W Reflex Microscopic panel (U) NOT INDICATED Normal [facility] Comment on above: Performed By: #### 2 54948 ####[facility],[address] [place] [address] Urobilinog NORM Normal NORMAL: NORMAL [facility] Comment on above: Performed By: #### 2 89712 ####[facility],[address] [place] [address] CBC + DIFFon 04-01-2025 Baso # 0.05 x10EE3/UL Normal 0.00 - 0.10 [facility] Comment on above: Performed By: #### 2 95016 ####[facility],[address] [place] [address] Basophils/100 WBC (Bld) 0.5 % Normal 0.0 - 2.0 [facility] Comment on above: Performed By: #### 2 83086 ####[facility],[address] [place] [address] CBC + DIFF Normal [facility] Comment on above: Result Comment: CBC- COMPLETE BLOOD COUNT Performed By: #### 2 09544 ####[facility],[address] [place], [place] [id number] EO # 0.24 x10EE3/UL Normal 0.00 - 0.50 [facility] Comment on above: Performed By: #### 2 34330 ####[facility],[address] [place] [address] Eosinophils/100 WBC (Bld) 2.1 % Normal 0.0 - 7.0 [facility] Comment on above: Performed By: #### 2 22144 ####[facility],[address] [place] [address] Erythrocyte distribution width (RBC) [Ratio] 13.9 % Normal 12.0 - 15.6 [facility] Comment on above: Performed By: #### 2 17062 ####[facility],[address] [place] [address] Hematocrit (Bld) [Volume fraction] 40.5 % Normal 34.0 - 46.0 [facility] Comment on above: Performed By: #### 2 28750 ####[facility],[address] [place] [address] Hemoglobin (Bld) [Mass/Vol] 14.3 g/dL Normal 12.0 - 16.0 [facility] Comment on above: Performed By: #### 2 37517 ####[facility],[address] [place], [place] [id number] Lymph # 2.89 x10EE3/UL High 0.80 - 2.80 [facility] Comment on above: Performed By: #### 2 69053 ####[facility],[address] [place], [place] [address] Lymphocytes/100 WBC (Bld) 25.5 % Normal 20.0 - 45.0 [facility] Comment on above: Performed By: #### 2 86282 ####[facility],[address] [place] [address] MANUAL DIFF N/A Normal [facility] Comment on above: Performed By: #### 2 90663 ####[facility],[address] [place] [address] MCH (RBC) [Entitic mass] 34 pg High 27 - 33 [facility] Comment on above: Performed By: #### 2 53606 ####[facility],[address] [place] [address] MCHC 35 X10 3 Normal 32 - 36 [facility] Comment on above: Performed By: #### 2 82865 ####[facility],[address] [place] [address] MCV (RBC) [Entitic vol] 97 fL Normal 80 - 99 [facility] Comment on above: Performed By: #### 2 14301 ####[facility],[address] [place] [address] [place] # 0.95 x10EE3/UL Normal 0.20 - 1.00 [facility] Comment on above: Performed By: #### 2 35409 ####[facility],[address] [place] [address] MONOS % 8.4 % Normal 0.0 - 10.0 [facility] Comment on above: Performed By: #### 2 84553 ####[facility],[address] [place] [address] Morphology Efra (Bld) [Interp] N/A Normal [facility] Comment on above: Performed By: #### 2 59962 ####[facility],[address] [place] [address] Neut # 7.19 x10EE3/UL High 1.50 - 7.10 [facility] Comment on above: Performed By: #### 2 50551 ####[facility],[address] [place] [address] 86134 Neutrophils/100 WBC (Bld) 63.5 % Normal 46.0 - 76.0 [facility] Comment on above: Performed By: #### 2 44195 ####[facility],[address] [place] [address] 02264 PLATELET 406 x10EE3/UL Normal 150 - 450 [facility] Comment on above: Performed By: #### 2 16639 ####[facility],[address] [place] [address] 39229 Platelet mean volume (Bld) [Entitic vol] 7.2 fL Normal 6.6 - 10.5 [facility] Comment on above: Result Comment: AUTO MATED DIFFERENTIAL Performed By: #### 2 53959 ####[facility],[address] [place] [address] 75492 RBC 4.20 x 10EE6/UL Normal 4.10 - 5.30 [facility] Comment on above: Performed By: #### 2 55673 ####[facility],[address] [place] [address] 03230 WBC 11.3 x 10EE3/UL High 4.5 - 10.8 [facility] Comment on above: Performed By: #### 2 10811 ####[facility],[address] [place] [address] 60742 CMP with eGFRon 04-01-2025 AGE 34 years Normal [facility] Comment on above: Performed By: #### 2 71274 ####[facility],[address] [place] [address] 59605 Albumin [Mass/Vol] 3.6 g/dL Normal 3.4 - 5.0 [facility] Comment on above: Performed By: #### 2 40581 ####[facility],[address] [place] [address] 93206 Albumin/Globulin [Mass ratio] 1.1 {ratio} Normal 0.9 - 1.6 [facility] Comment on above: Performed By: #### 2 49249 ####[facility],[address] [place] [address] 53240 ALK PHOS 79 U/L Normal 46 - 116 [facility] Comment on above: Performed By: #### 2 13049 ####[facility],[address] [place] [address] 24158 ALT [Catalytic activity/Vol] 16 U/L Normal 16 - 63 [facility] Comment on above: Performed By: #### 2 05910 ####[facility],[address] [place] [address] 15691 Anion gap [Moles/Vol] 14 mmol/L Normal 10 - 20 [facility] Comment on above: Performed By: #### 2 60702 ####[facility],[address] [place] [address] 44719 AST [Catalytic activity/Vol] 16 U/L Normal 13 - 39 [facility] Comment on above: Performed By: #### 2 07813 ####[facility],[address] [place] [address] 08718 B/C RATIO 11 ratio Normal 0 - 30 [facility] Comment on above: Performed By: #### 2 30700 ####[facility],[address] [place] [address] 63077 Bilirubin [Mass/Vol] 0.3 mg/dL Normal 0.2 - 1.0 [facility] Comment on above: Performed By: #### 2 81796 ####[facility],[address] [place] [address] 76478 Calcium [Mass/Vol] 8.9 mg/dL Normal 8.5 - 10.1 [facility] Comment on above: Performed By: #### 2 54621 ####[facility],[address] [place] [address] 60751 Chloride [Moles/Vol] 105 mmol/L Normal 98 - 107 [facility] Comment on above: Performed By: #### 2 78601 ####[facility],[address] [place] [address] 86915 CMP with eGFR Normal [facility] Comment on above: Result Comment: COMP REHENSIVE METABOLIC PANEL Performed By: #### 2 70287 ####[facility],[address] [place] [address] 42243 CO2 [Moles/Vol] 26.8 mmol/L Normal 21.0 - 32.0 [facility] Comment on above: Performed By: #### 2 79467 ####[facility],[address] [place] [address] 44409 Creatinine [Mass/Vol] 1.04 mg/dL High 0.55 - 1.02 [facility] Comment on above: Performed By: #### 2 46248 ####[facility],[address] [place] [address] 44217 eGFR 60 ML/MINUTE Normal 60 - 999 [facility] Comment on above: Performed By: #### 2 48184 ####[facility],[address] [place] [address] 20477 GFR/1.73 sq M.predicted among non-blacks MDRD (S/P/Bld) [Vol rate/Area] mL/min/{1.73_m2} Normal 60 - 999 [facility] Comment on above: Result Comment: ACCO RDING TO THE NATIONAL KIDNEY DISEASE EDUCATION PROGRAM(NKDE), A NORMAL eGFRIS A VALUE GREATER THAN OR EQUAL TO 60 ML/MIN/1.73 SQ METERS.CHRONIC KIDNEY DISEASE: <60mL/MIN/1.73 SQ METERSKIDNEY FAILURE: <15mL/MIN/1.73 SQ METERSTHIS TEST SHOULD ONLY BE USED FOR PATIENTS 18 YEARS OF AGE AND OLDER. Performed By: #### 2 20301 ####[facility],[address] [place] [address] 50787 Globulin (S) [Mass/Vol] 3.2 g/dL Normal 1.5 - 3.8 [facility] Comment on above: Performed By: #### 2 99175 ####[facility],[address] [place] [address] 91409 Glucose [Mass/Vol] 91 mg/dL Normal 74 - 106 [facility] Comment on above: Performed By: #### 2 70078 ####[facility],[address] [place] [address] 25735 Potassium [Moles/Vol] 4.1 mmol/L Normal 3.5 - 5.1 [facility] Comment on above: Performed By: #### 2 12970 ####[facility],[address] [place] [address] 87774 Protein [Mass/Vol] 6.8 g/dL Normal 6.4 - 8.2 [facility] Comment on above: Performed By: #### 2 05244 ####[facility],[address] [place] [address] 02805 Sodium [Moles/Vol] 142 mmol/L Normal 136 - 145 [facility] Comment on above: Performed By: #### 2 90111 ####[facility],[address] [place] [address] 72892 Urea nitrogen [Mass/Vol] 11 mg/dL Normal 7 - 18 [facility] Comment on above: Performed By: #### 2 85458 ####[facility],[address] [place] [address] 61356 CORONAVIRUS (SARS) ANTIGEN T ESTon 04-01-2025 EXTERNAL QC DONE? YES Normal [facility] Comment on above: Performed By: #### 2 63522 ####[facility],[address] [place] [address] 78280 INTERNAL CONTROL PASS Normal [facility] Comment on above: Performed By: #### 2 42117 ####[facility],[address] [place] [address] 66992 SARS ANTIGEN Negative Normal NORMAL: NEGATIVE [facility] Comment on above: Performed By: #### 2 23451 ####[facility],[address] [place], [place] [id number] SEND TO ? NO Normal [facility] Comment on above: Result Comment: SARS -CoV-2THIS TEST IS BEING USED UNDER THE FDA EUA PROCEDURE. THIS ASSAY HAS BEENVALIDATED AT [facility] FOR USE WITH NASAL AND NASOPHARYNGEAL [...] WITH PUBLIC HEALTHAUTHORITIES. Performed By: #### 2 08498 ####[facility],[address] [place] [address] 59867 ED MED ADMINISTRATION DETAIL on 04-01-2025 ED MED ADMINISTRATION DETAIL Normal [facility] ED NURSES CLINICAL NOTEon ED NURSES CLINICAL NOTE Normal [facility] ED ORDER SHEET (CPOE ONLY)on 04-01-2025 ED ORDER SHEET (CPOE ONLY) Normal [facility] ED PHYSICIAN CLINICAL REPORT on 04-01-2025 ED PHYSICIAN CLINICAL REPORT Normal [facility] ED SUPER BILLon 04-01-2025 ED SUPER BILL Normal [facility] ED VISIT SUMMARYon ED VISIT SUMMARY Normal [facility] ED VITALS FLOW SHEETon 04-01 ED VITALS FLOW SHEET Normal [facility] INFLUENZA VIRUS RAPID A/Bon 04-01-2025 INFLUENZA VIRUS RAPID A/B Normal [facility] Comment on above: Performed By: #### 2 13912 ####[facility],[address] [place] [address] LACTATEon 04-01-2025 Lactate [Moles/Vol] 1.7 mmol/L Normal 0.4 - 2.0 [facility] Comment on above: Performed By: #### 2 81136 ####[facility],[address] [place] [address] LIPASEon 04-01-2025 Lipase [Catalytic activity/Vol] 169.0 U/L High 15.0 - 78.0 [facility] Comment on above: Result Comment: *PLE ASE NOTE THAT RANGES FOR LIPASE HAVE CHANGED OF 10/31/23 DUE TO AN ASSAYUPDATE BY THE PLC ENGINEER.THE NEW ASSAY RANGE IS 6-250 U/L, WITH A REFERENCERANGE OF 16-77 U/L. Performed By: #### 2 82538 ####[facility],[address] [place] [address] SERUM QUALon 04-01 EXTERNAL QC DONE? YES Normal [facility] Comment on above: Performed By: #### 2 54869 ####[facility],[address] [place] [address] INTERNAL QC PASS Normal [facility] Comment on above: Performed By: #### 2 05416 ####[facility],[address] [place] [address] 61799 SER Negative Normal NEGATIVE [facility] Comment on above: Performed By: #### 2 14170 ####[facility],[address] [place] [address] 94862 TROPONINon 04-01-2025 HS TROPONIN 4.1 pg/mL Normal 0.0 - 51.4 [facility] Comment on above: Performed By: #### 2 39980 ####[facility],[address] [place] [address] 00404 URINALYSISon 04-01-2025 Amorphous NONE Normal [facility] Comment on above: Performed By: #### 2 56125 ####[facility],[address] [place] [address] 26224 Bacteria NONE Normal [facility] Comment on above: Performed By: #### 2 91078 ####[facility],[address] [place] [address] 64505 Bilirubin Ql (U) Negative Normal NORMAL: NEGATIVE [facility] Comment on above: Performed By: #### 2 60354 ####[facility],[address] [place] [address] 57698 Casts NONE Normal [facility] Comment on above: Performed By: #### 2 06210 ####[facility],[address] [place] [address] 47634 Clarity (U) clear Normal NORMAL: CLEAR [facility] Comment on above: Performed By: #### 2 92851 ####[facility],[address] [place] [address] 17164 Color (U) yellow Normal NORMAL: YELLOW [facility] Comment on above: Performed By: #### 2 99817 ####[facility],[address] [place] [address] 23573 Crystals LM Nom (Urine sed) NONE Normal [facility] Comment on above: Performed By: #### 2 30101 ####[facility],[address] [place] [address] 83126 Epi Cells OCC Normal [facility] Comment on above: Performed By: #### 2 50802 ####[facility],[address] [place] [address] 27354 Glucose Ql (U) NORM Normal NORMAL: NORMAL [facility] Comment on above: Performed By: #### 2 28937 ####[facility],[address] [place] [address] 25951 Hemoglobin Ql (U) 10 Abnormal NORMAL: NEGATIVE [facility] Comment on above: Performed By: #### 2 62832 ####[facility],[address] [place] [address] 53149 Ketone Negative Normal NORMAL: NEGATIVE [facility] Comment on above: Performed By: #### 2 19474 ####[facility],[address] [place] [address] 23779 Leukocytes 25 Abnormal NORMAL: NEGATIVE [facility] Comment on above: Performed By: #### 2 58968 ####[facility],[address] [place] [address] 96457 Mucous NONE Normal [facility] Comment on above: Performed By: #### 2 65388 ####[facility],[address] [place] [address] 59365 Nitrite Ql (U) Negative Normal NORMAL: NEGATIVE [facility] Comment on above: Performed By: #### 2 66467 ####[facility],[address] [place] [address] 64541 pH (U) 6.5 [pH] Normal NORMAL: 5.0-8.0 [facility] Comment on above: Performed By: #### 2 86958 ####[facility],[address] [place] [address] 79639 Protein Ql (U) 15 Abnormal NORMAL: NEGATIVE [facility] Comment on above: Performed By: #### 2 76717 ####[facility],[address] [place] [address] 25269 Rbc NONE Normal 0-3/hpf [facility] Comment on above: Performed By: #### 2 17189 ####[facility],[address] [place] [address] 83973 Sp Harbeson 1.015 Normal NORMAL: 1.010-1.030 [facility] Comment on above: Performed By: #### 2 69653 ####[facility],[address] [place] [address] Specimen Type R Normal [facility] Comment on above: Performed By: #### 2 73694 ####[facility],[address] [place], [place] [id number] Urinalysis dipstick W Reflex Microscopic panel (U) SEE BELOW Normal [facility] Comment on above: Result Comment: MICR OSCOPIC Performed By: #### 2 76695 ####[facility],[address] [place], [place] [id number] Urobilinog NORM Normal NORMAL: NORMAL [facility] Comment on above: Performed By: #### 2 24775 ####[facility],[address] [place], [place] [id number] Wbc 1-5 Normal 0-5/hpf [facility] Comment on above: Performed By: #### 2 25480 ####[facility],[address] [place], [place] [id number] Yeast NONE Normal [facility] Comment on above: Performed By: #### 2 91527 ####[facility],[address] [place], [place] [id number] URINE CULTURE [CCL]on 2024 Bacteria identified Cx Nom (U) Normal [facility] Comment on above: Performed By: #### 2 66610 ####[facility],[address] [place], [place] [id number] C-REACTIVE PROTEINon CRP 0.15 mg/dl Normal 0.00 - 0.90 [facility] Comment on above: Performed By: #### 2 12263 ####[facility],[address] [place] [address] 04850 CBC + DIFFon 03-23-2025 Baso # 0.07 x10EE3/UL Normal 0.00 - 0.10 [facility] Comment on above: Performed By: #### 2 60622 ####[facility],[address] [place], [place] [address] Basophils/100 WBC (Bld) 0.5 % Normal 0.0 - 2.0 [facility] Comment on above: Performed By: #### 2 54049 ####[facility],[address] [place] [address] CBC + DIFF Normal [facility] Comment on above: Result Comment: CBC- COMPLETE BLOOD COUNT Performed By: #### 2 57075 ####[facility],[address] [place], [place] [id number] CELL COUNT 100 Normal [facility] Comment on above: Performed By: #### 2 56625 ####[facility],[address] [place] [address] 16723 EO # 0.39 x10EE3/UL Normal 0.00 - 0.50 [facility] Comment on above: Performed By: #### 2 35552 ####[facility],[address] [place], [place] [id number] Eosinophils/100 WBC (Bld) 2.6 % Normal 0.0 - 7.0 [facility] Comment on above: Performed By: #### 2 47486 ####[facility],[address] [place], [place] [address] Erythrocyte distribution width (RBC) [Ratio] 13.8 % Normal 12.0 - 15.6 [facility] Comment on above: Performed By: #### 2 88236 ####[facility],[address] [place] [address] 42763 Hematocrit (Bld) [Volume fraction] 44.3 % Normal 34.0 - 46.0 [facility] Comment on above: Performed By: #### 2 02330 ####[facility],[address] [place] [address] 30425 Hemoglobin (Bld) [Mass/Vol] 15.4 g/dL Normal 12.0 - 16.0 [facility] Comment on above: Performed By: #### 2 70930 ####[facility],[address] [place] [address] 45118 Lymph # 5.14 x10EE3/UL High 0.80 - 2.80 [facility] Comment on above: Performed By: #### 2 28459 ####[facility],[address] [place] [address] 70562 Lymphocytes/100 WBC (Bld) 34.4 % Normal 20.0 - 45.0 [facility] Comment on above: Performed By: #### 2 85044 ####[facility],[address] [place] [address] 83380 Lymphocytes/100 WBC (Bld) 42 % Normal 20 - 45 [facility] Comment on above: Performed By: #### 2 52753 ####[facility],[address] [place] [address] 80945 MANUAL DIFF SEE BELOW Normal [facility] Comment on above: Performed By: #### 2 83756 ####[facility],[address] [place] [address] 04674 MCH (RBC) [Entitic mass] 34 pg High 27 - 33 [facility] Comment on above: Performed By: #### 2 17650 ####[facility],[address] [place] [address] 37465 MCHC 35 X10 3 Normal 32 - 36 [facility] Comment on above: Performed By: #### 2 61727 ####[facility],[address] [place] [address] MCV (RBC) [Entitic vol] 97 fL Normal 80 - 99 J l [facility] Comment on above: Performed By: #### 2 41402 ####[facility],[address] [place] [address] [place] # 1.37 x10EE3/UL High 0.20 - 1.00 [facility] Comment on above: Performed By: #### 2 74463 ####[facility],[address] [place] [address] MONOS 8 % Normal 0 - 10 [facility] Comment on above: Performed By: #### 2 72724 ####[facility],[address] [place] [address] MONOS % 9.2 % Normal 0.0 - 10.0 [facility] Comment on above: Performed By: #### 2 16242 ####[facility],[address] [place] [address] Morphology Efra (Bld) [Interp] SEE BELOW Normal [facility] Comment on above: Performed By: #### 2 15877 ####[facility],[address] [place] [address] Neut # 7.98 x10EE3/UL High 1.50 - 7.10 [facility] Comment on above: Performed By: #### 2 72715 ####[facility],[address] [place] [address] Neutrophils/100 WBC (Bld) 53.4 % Normal 46.0 - 76.0 [facility] Comment on above: Performed By: #### 2 26661 ####[place] [address] PLATELET 512 x10EE3/UL High 150 - 450 [facility] Comment on above: Performed By: #### 2 64860 ####[facility],[address],[place] [address] Platelet mean volume (Bld) [Entitic vol] 7.8 fL Normal 6.6 - 10.5 [facility] Comment on above: Result Comment: AUTO MATED DIFFERENTIAL Performed By: #### 2 50394 ####[facility],[address] [place], [place] [id number] PLT EST INCREASED Normal [facility] Comment on above: Performed By: #### 2 64070 ####[facility],[address] [place], [place] [address] RBC 4.59 x 10EE6/UL Normal 4.10 - 5.30 [facility] Comment on above: Performed By: #### 2 23195 ####[facility],[address] [place] [address] SEGS 50 % Normal 46 - 76 [facility] Comment on above: Performed By: #### 2 09268 ####[facility],[address] [place] [address] WBC 15.0 x 10EE3/UL High 4.5 - 10.8 [facility] Comment on above: Performed By: #### 2 66391 ####[facility],[address] [place] [address] Other RBC MORPH NORMAL Normal [facility] Comment on above: Performed By: #### 2 00001 ####[facility],[address] [place], [place] [id number] CMP with eGFRon 03-23-2025 AGE 34 years Normal [facility] Comment on above: Performed By: #### 2 29475 ####[facility],[address] [place] [address] 17647 Albumin [Mass/Vol] 4.0 g/dL Normal 3.4 - 5.0 [facility] Comment on above: Performed By: #### 2 11095 ####[facility],[address] [place] [address] 55655 Albumin/Globulin [Mass ratio] 1.1 {ratio} Normal 0.9 - 1.6 [facility] Comment on above: Performed By: #### 2 63098 ####[facility],[address] [place] [address] 80095 ALK PHOS 88 U/L Normal 46 - 116 [facility] Comment on above: Performed By: #### 2 51316 ####[facility],[address] [place] [address] 69274 ALT [Catalytic activity/Vol] 14 U/L Low 16 - 63 [facility] Comment on above: Performed By: #### 2 07038 ####[facility],[address] [place] [address] 28777 Anion gap [Moles/Vol] 14 mmol/L Normal 10 - 20 [facility] Comment on above: Performed By: #### 2 48740 ####[facility],[address] [place] [address] 08484 AST [Catalytic activity/Vol] 17 U/L Normal 13 - 39 [facility] Comment on above: Performed By: #### 2 96475 ####[facility],[address] [place] [address] 70096 B/C RATIO 8 ratio Normal 0 - 30 [facility] Comment on above: Performed By: #### 2 56917 ####[facility],[address] [place] [address] 62926 Bilirubin [Mass/Vol] 0.4 mg/dL Normal 0.2 - 1.0 [facility] Comment on above: Performed By: #### 2 99779 ####[facility],[address] [place] [address] 24149 Calcium [Mass/Vol] 9.3 mg/dL Normal 8.5 - 10.1 [facility] Comment on above: Performed By: #### 2 19542 ####[facility],[address] [place] [address] 48535 Chloride [Moles/Vol] 103 mmol/L Normal 98 - 107 [facility] Comment on above: Performed By: #### 2 27515 ####[facility],[address] [place] [address] 71031 CMP with eGFR Normal [facility] Comment on above: Result Comment: COMP REHENSIVE METABOLIC PANEL Performed By: #### 2 43945 ####[facility],[address] [place] [address] 81896 CO2 [Moles/Vol] 25.1 mmol/L Normal 21.0 - 32.0 [facility] Comment on above: Performed By: #### 2 81384 ####[facility],[address] [place] [address] Creatinine [Mass/Vol] 1.06 mg/dL High 0.55 - 1.02 [facility] Comment on above: Performed By: #### 2 53025 ####[facility],[address] [place] [address] eGFR 59 ML/MINUTE Low 60 - 999 [facility] Comment on above: Performed By: #### 2 17617 ####[facility],[address] [place] [address] 95460 GFR/1.73 sq M.predicted among non-blacks MDRD (S/P/Bld) [Vol rate/Area] mL/min/{1.73_m2} Normal 60 - 999 [facility] Comment on above: Result Comment: ACCO RDING TO THE NATIONAL KIDNEY DISEASE EDUCATION PROGRAM(NKDE), A NORMAL eGFRIS A VALUE GREATER THAN OR EQUAL TO 60 ML/MIN/1.73 SQ METERS.CHRONIC KIDNEY DISEASE: <60mL/MIN/1.73 SQ METERSKIDNEY FAILURE: <15mL/MIN/1.73 SQ METERSTHIS TEST SHOULD ONLY BE USED FOR PATIENTS 18 YEARS OF AGE AND OLDER. Performed By: #### 2 03017 ####[facility],[address] [place] [address] 91155 Globulin (S) [Mass/Vol] 3.6 g/dL Normal 1.5 - 3.8 [facility] Comment on above: Performed By: #### 2 29185 ####[facility],[address] [place] [address] 64301 Glucose [Mass/Vol] 106 mg/dL Normal 74 - 106 [facility] Comment on above: Performed By: #### 2 27086 ####[facility],[address] [place] [address] 39894 Potassium [Moles/Vol] 3.3 mmol/L Low 3.5 - 5.1 [facility] Comment on above: Performed By: #### 2 73930 ####[facility],[address] [place] [address] 00414 Protein [Mass/Vol] 7.6 g/dL Normal 6.4 - 8.2 [facility] Comment on above: Performed By: #### 2 32346 ####[facility],[address] [place] [address] 41704 Sodium [Moles/Vol] 139 mmol/L Normal 136 - 145 [facility] Comment on above: Performed By: #### 2 10319 ####[facility],[address] [place] [address] 53888 Urea nitrogen [Mass/Vol] 8 mg/dL Normal 7 - 18 [facility] Comment on above: Performed By: #### 2 61946 ####[facility],[address] [place], [place] [id number] ED MED ADMINISTRATION DETAIL on 03-23-2025 ED MED ADMINISTRATION DETAIL Normal [facility] ED NURSES CLINICAL NOTEon ED NURSES CLINICAL NOTE Normal [facility] ED ORDER SHEET (CPOE ONLY)on 03-23-2025 ED ORDER SHEET (CPOE ONLY) Normal [facility] ED PHYSICIAN CLINICAL REPORT on 03-23-2025 ED PHYSICIAN CLINICAL REPORT Normal [facility] ED SUPER BILLon 03-23-2025 ED SUPER BILL Normal [facility] ED VISIT SUMMARYon ED VISIT SUMMARY Normal [facility] ED VITALS FLOW SHEETon 03-23 ED VITALS FLOW SHEET Normal [facility] URINALYSISon 03-23-2025 Amorphous NONE Normal [facility] Comment on above: Performed By: #### 2 49839 ####[facility],[address] [place] [address] 98060 Bacteria 3+ Normal [facility] Comment on above: Performed By: #### 2 00133 ####[facility],[address] [place] [address] 81949 Bilirubin Ql (U) Negative Normal NORMAL: NEGATIVE [facility] Comment on above: Performed By: #### 2 60452 ####[facility],[address] [place] [address] 93112 Casts NONE Normal [facility] Comment on above: Performed By: #### 2 18696 ####[facility],[address] [place] [address] 52855 Clarity (U) sl.cloudy Normal NORMAL: CLEAR [facility] Comment on above: Performed By: #### 2 80881 ####[facility],[address] [place] [address] 44696 Color (U) yellow Normal NORMAL: YELLOW [facility] Comment on above: Performed By: #### 2 88767 ####[facility],[address] [place] [address] 33566 Crystals LM Nom (Urine sed) SEE BELOW Normal [facility] Comment on above: Performed By: #### 2 52278 ####[facility],[address] [place] [address] 82860 Epi Cells NONE Normal [facility] Comment on above: Performed By: #### 2 17888 ####[facility],[address] [place] [address] 19792 Glucose Ql (U) NORM Normal NORMAL: NORMAL [facility] Comment on above: Performed By: #### 2 11199 ####[facility],[address] [place] [address] 10953 Hemoglobin Ql (U) 250 Abnormal NORMAL: NEGATIVE [facility] Comment on above: Performed By: #### 2 50028 ####[facility],[address] [place] [address] 90722 Ketone Negative Normal NORMAL: NEGATIVE [facility] Comment on above: Performed By: #### 2 97162 ####[facility],[address] [place] [address] 55138 Leukocytes 500 Abnormal NORMAL: NEGATIVE [facility] Comment on above: Performed By: #### 2 86477 ####[facility],[address] [place] [address] 79840 Mucous NONE Normal [facility] Comment on above: Performed By: #### 2 44615 ####[facility],[address] [place] [address] 47125 Nitrite Ql (U) Positive Normal NORMAL: NEGATIVE [facility] Comment on above: Performed By: #### 2 15995 ####[facility],[address] [place] [address] 57869 pH (U) 8 [pH] Normal NORMAL: 5.0-8.0 [facility] Comment on above: Performed By: #### 2 79969 ####[facility],[address] [place] [address] 09171 Protein Ql (U) 500 Abnormal NORMAL: NEGATIVE [facility] Comment on above: Performed By: #### 2 42806 ####[facility],[address] [place] [address] 33826 Rbc 15-20 Normal 0-3/hpf [facility] Comment on above: Performed By: #### 2 21398 ####[facility],[address] [place] [address] 89907 Sp Harbeson 1.015 Normal NORMAL: 1.010-1.030 [facility] Comment on above: Performed By: #### 2 47679 ####[facility],[address] [place] [address] Specimen Type R Normal [facility] Comment on above: Performed By: #### 2 53462 ####[facility],[address] [place] [address] Triple Phos 1+ Normal NORMAL: NONE [facility] Comment on above: Performed By: #### 2 70201 ####[facility],[address] [place] [address] Urinalysis dipstick W Reflex Microscopic panel (U) SEE BELOW Normal [facility] Comment on above: Result Comment: MICR OSCOPIC Performed By: #### 2 88117 ####[facility],[address] [place] [address] Urobilinog NORM Normal NORMAL: NORMAL [facility] Comment on above: Performed By: #### 2 83432 ####[facility],[address] [place] [address] Wbc 26-50 Normal 0-5/hpf [facility] Comment on above: Performed By: #### 2 38661 ####[facility],[address] [place] [address] Yeast NONE Normal [facility] Comment on above: Performed By: #### 2 17852 ####[facility],[address] [place] [address] .Auto Diffon 03-15-2025 Basophil, Absolute 0.1 10 3/mcL Normal 0.0-0.3 [facility] Comment on above: Performed By: #### G FR, ANEU, CMP, CBC, YOUNG SIDDIQUI, LAC ####[facility] [place] [address] 34862 Basophils/100 WBC (Bld) 0.7 % Normal 0.0-2.5 [facility] Comment on above: Performed By: #### G FR, ANEU, CMP, CBC, MD CHENW, LAC ####[place] [address] [address] [place] [address] 04134 Eosinophil, Absolute 0.2 10 3/mcL Normal 0.0-0.7 [facility] Comment on above: Performed By: #### G FR, ANEU, CMP, CBC, ADIFF, MDW, LAC ####[place] [address] [address] [place] [address] 61548 Eosinophils/100 WBC (Bld) 2.0 % Normal 0.0-6.0 [facility] Comment on above: Performed By: #### G FR, ANEU, CMP, CBC, ADIFF, MDW, LAC ####[address] [address] Lymphocyte, Absolute 1.9 10 3/mcL Normal 0.9-4.3 [facility] Comment on above: Performed By: #### G FR, ANEU, CMP, CBC, ADIFF, MDW, LAC ####[address] [address] Lymphocytes/100 WBC (Bld) 22.2 % Normal 20.0-40.0 [facility] Comment on above: Performed By: #### G FR, ANEU, CMP, CBC, ADIFF, MDW, LAC ####[address] [address] Monocyte, Absolute 1.0 10 3/mcL Normal 0.1-1.4 [facility] Comment on above: Performed By: #### G FR, ANEU, CMP, CBC, ADIFF, MDW, LAC ####[address] [address] Monocytes/100 WBC (Bld) 11.4 % Normal 2.0-13.0 [facility] Comment on above: Performed By: #### G FR, ANEU, CMP, CBC, ADIFF, MDW, LAC ####[address] 8[address]91 Neutrophils/100 WBC (Bld) 63.7 % Normal 50.0-75.0 [facility] Comment on above: Performed By: #### G FR, ANEU, CMP, CBC, ADIFF, MDW, LAC ####[place] [address] .GFRon 03-15-2025 Estimated Glomerular Filtration Rate 98 ml/min/1.73sqm Normal [facility] Comment on above: Result Comment: Stag [...] FR, ANEU, CMP, CBC, ADIFF, MDW, LAC ####[place] [address] .MDWon 03-15-2025 Monocyte Distribution Width 19.00 Normal 0.00-20.00 [facility] Comment on above: Result Comment: For ED adult patients suspected of sepsis, MDW<=20.0 does not rule out sepsis or risk of sepsis Performed By: #### G FR, ANEU, CMP, CBC, ADIFF, MDW, LAC ####[place] [address] .NEUABSon 03-15-2025 Neutrophil, Absolute 5.5 10 3/mcL Normal 2.3-8.1 [facility] Comment on above: Performed By: #### G FR, ANEU, CMP, CBC, ADIFF, MDW, LAC ####[place] [address] CBCon 03-15-2025 Erythrocyte distribution width (RBC) [Ratio] 14.7 % Normal 11.5-15.5 [facility] Comment on above: Performed By: #### G FR, ANEU, CMP, CBC, ADIFF, MDW, LAC ####[place] [address] Hematocrit (Bld) [Volume fraction] 38.6 % Normal 34.0-46.0 [facility] Comment on above: Performed By: #### G FR, ANEU, CMP, CBC, ADIFF, MDW, LAC ####[place] [address] Hgb 12.6 G/dL Normal 12.0-16.0 [facility] Comment on above: Performed By: #### G FR, ANEU, CMP, CBC, ADIFF, MDW, LAC ####[place] [address] MCH (RBC) [Entitic mass] 31.4 pg Normal 27.0-33.0 [facility] Comment on above: Performed By: #### G FR, ANEU, CMP, CBC, ADIFF, MDW, LAC ####[place] [address] MCHC 32.5 G/dL Normal 32.0-36.0 [facility] Comment on above: Performed By: #### G FR, ANEU, CMP, CBC, ADIFF, MDW, LAC ####[place] [address] MCV (RBC) [Entitic vol] 96.7 fL Normal 80.0-99.0 [facility] Comment on above: Performed By: #### G FR, ANEU, CMP, CBC, ADIFF, MDW, LAC ####[place] [address] Platelet 294 10 3/mcL Normal 150-450 [facility] Comment on above: Performed By: #### G FR, ANEU, CMP, CBC, ADIFF, MDW, LAC ####[place] [address] Platelet mean volume (Bld) [Entitic vol] 7.3 fL Normal 6.6-10.5 [facility] Comment on above: Performed By: #### G FR, ANEU, CMP, CBC, ADIFF, MDW, LAC ####[place] [address] RBC 4.00 10 6/mcL Low 4.10-5.30 [facility] Comment on above: Performed By: #### G FR, ANEU, CMP, CBC, ADIFF, MDW, LAC ####[place] [address] WBC 8.7 10 3/mcL Normal 4.5-10.8 [facility] Comment on above: Performed By: #### G FR, ANEU, CMP, CBC, ADIFF, MDW, LAC ####[place] [address] CMPon 03-15-2025 Albumin Level 4.0 G/dL Normal 3.2-4.8 [facility] Comment on above: Performed By: #### G FR, ANEU, CMP, CBC, ADIFF, MDW, LAC ####[place] [address] Albumin/Globulin [Mass ratio] 1.2 {ratio} Normal 0.9-1.6 [facility] Comment on above: Performed By: #### G FR, ANEU, CMP, CBC, ADIFF, MDW, LAC ####[place] [address] ALP [Catalytic activity/Vol] 72 U/L Normal 38-126 [facility] Comment on above: Performed By: #### G FR, ANEU, CMP, CBC, ADIFF, MDW, LAC ####[place] [address] ALT [Catalytic activity/Vol] 9 U/L Low 10-49 [facility] Comment on above: Performed By: #### G FR, ANEU, CMP, CBC, ADIFF, MDW, LAC ####[place] [address] AST [Catalytic activity/Vol] 19 U/L Normal 8-34 [facility] Comment on above: Performed By: #### G FR, ANEU, CMP, CBC, ADIFF, MDW, LAC ####[place] [address] Bili Total 0.30 mg/dL Normal 0.20-1.20 [facility] Comment on above: Result Comment: Use of this assay is not recommended for patients undergoing treatment with eltrombopag due to the potential for falsely elevated results. Performed By: #### G FR, ANEU, CMP, CBC, ADIFF, MDW, LAC ####[place] [id number] BUN/Creatinine Ratio 7.5 ratio Low 10.0-22.0 [facility] Comment on above: Performed By: #### G FR, ANEU, CMP, CBC, ADIFF, MDW, LAC ####[address] [address] Calcium [Mass/Vol] 9.7 mg/dL Normal 8.7-10.4 [facility] Comment on above: Performed By: #### G FR, ANEU, CMP, CBC, ADIFF, MDW, LAC ####[place] [address] Chloride [Moles/Vol] 107 mmol/L Normal 98-110 [facility] Comment on above: Performed By: #### G FR, ANEU, CMP, CBC, ADIFF, MDW, LAC ####[place] [id number] CO2 [Moles/Vol] 28 mmol/L Normal 22-32 [facility] Comment on above: Performed By: #### G FR, ANEU, CMP, CBC, ADIFF, MDW, LAC ####[place] [phone] Creatinine [Mass/Vol] 0.80 mg/dL Normal 0.50-1.20 [facility] Comment on above: Result Comment: Test ing performed on Parakey analyzer using enzymatic creatinine methodology. Performed By: #### G FR, ANEU, CMP, CBC, ADIFF, MDW, LAC ####[address] [address] Electrolyte Balance 3.0 mEq/L Low 4.0-15.0 [facility] Comment on above: Performed By: #### G FR, ANEU, CMP, CBC, ADIFF, MDW, LAC ####[place] [phone] Globulin 3.3 G/dL Normal 2.5-4.2 [facility] Comment on above: Performed By: #### G FR, ANEU, CMP, CBC, ADMACEY, MDW, LAC ####[address] [address] Glucose [Mass/Vol] 101 mg/dL Normal 70-110 [facility] Comment on above: Performed By: #### G FR, ANEU, CMP, CBC, ADIFF, MDW, LAC ####[address] [address] Potassium [Moles/Vol] 3.8 mmol/L Normal 3.5-5.0 [facility] Comment on above: Result Comment: Spec imen slightly hemolyzed. Performed By: #### G FR, ANEU, CMP, CBC, ADMACEY, MDW, LAC ####[address] [address] Sodium [Moles/Vol] 138 mmol/L Normal 136-145 [facility] Comment on above: Performed By: #### G FR, ANEU, CMP, CBC, ADIFF, MDW, LAC ####[address] [address] Total Protein 7.3 G/dL Normal 5.7-8.2 [facility] Comment on above: Performed By: #### G FR, ANEU, CMP, CBC, ADIFF, MDW, LAC ####[address] [address] Urea nitrogen [Mass/Vol] 6.0 mg/dL Low 8.0-22.0 [facility] Comment on above: Performed By: #### G FR, ANEU, CMP, CBC, ADIFF, MDW, LAC ####[address] [address] [address] ABD/PELVIS W/ IV CONTRAST ONLYon 03-15-2025 CT ABD/PELVIS W/ IV CONTRAST ONLY Normal [facility] LABORATORYOrdered By: SYSTEM SYSTEM on 03-15-2025 [...] above: Interpretive Data: T esting performed on Parakey analyzer using enzymatic creatinine methodology. Electrolyte Balance [...] Filtration Rate 98 ml/min/1.73sqm Invalid Interpretation Code AH ADM SS [...] AH Auto Urine SS UA pH 6.5 (5/13/25 4:07 PM) Normal 5.0 - 8.0 Auto Urine SS UA Protein Trace mg/dL Normal Negative Auto Urine SS UA RBC 5-10 /HPF Invalid Interpretation Code 0-2 AH Auto Urine SS UA Spec Grav 1.020 (03/15/25 4:07 PM) Normal 1.006-1.029 Auto Urine SS UA Specimen Type Clean Catch (03/15/25 4:07 PM) Normal Auto Urine SS UA Squam Epithelial 3-5 /HPF Normal 0-20 Au to Urine SS UA Urobilinogen 1.0 E.U./dL Normal 0.2-1.0 Auto Urine SS WBC LM.HPF (Urine sed) [#/Area] 0-2 /HPF Normal 0-5 Auto Urine SS LACon 03-15-2025 Lactic Acid Lvl 1.3 mmol/L Normal 0.5-2.2 [facility] Comment on above: Performed By: #### G FR, ANEU, CMP, CBC, ADIFF, MDW, LAC ####[place] [address] UAon 03-15-2025 Color (U) Yellow Normal [facility] Comment on above: Performed By: #### U A, UAMIC ####[place] [address] Glucose (U) [Mass/Vol] Negative Normal Negative [facility] Comment on above: Performed By: #### U A, UAMIC ####[place] [address] Ketones Ql (U) Trace Normal Neg-Trace [facility] Comment on above: Performed By: #### U A, UAMIC ####[place] [address] UA Appear Clear Normal Clear [facility] Comment on above: Performed By: #### U A, UAMIC ####[place] [address] UA Blood Small Abnormal Neg-Trace [facility] Comment on above: Performed By: #### U A, UAMIC ####[place] [address] UA Leuk Est Trace Normal Negative [facility] Comment on above: Performed By: #### U A, UAMIC ####[place] [address] UA Nitrite Negative Normal Negative [facility] Comment on above: Performed By: #### U A, UAMIC ####[place] [address] UA pH 6.5 Normal 5.0 - 8.0 [facility] Comment on above: Performed By: #### U A, UAMIC ####[place] [address] UA Protein Trace Normal Negative [facility] Comment on above: Performed By: #### U A, UAMIC ####[place] [address] UA Spec Grav 1.020 Normal 1.006-1.029 [facility] Comment on above: Performed By: #### U A, UAMIC ####[place] [address] UA Specimen Type Clean Catch Normal [facility] Comment on above: Performed By: #### U A, UAMIC ####[place] [address] UA Urobilinogen 1.0 E.U./dL Normal 0.2-1.0 [facility] Comment on above: Performed By: #### U A, UAMIC ####[place] [address] Urobilinogen (U) [Mass/Vol] Negative Normal Neg-Trace [facility] Comment on above: Performed By: #### U A, UAMIC ####[place] [address] UAMICon 03-15-2025 UA Bacteria Trace Abnormal Negative [facility] Comment on above: Performed By: #### U A, UAMIC ####[place] [address] UA Mucous 4+ /hpf Normal [facility] Comment on above: Performed By: #### U A, UAMIC ####[place] [address] UA RBC 5-10 Abnormal 0-2 [facility] Comment on above: Performed By: #### U A, UAMIC ####[place] [address] UA Squam Epithelial 3-5 Normal 0-20 [facility] Comment on above: Performed By: #### U A, UAMIC ####[place] [address] UA WBC 0-2 Normal 0-5 [facility] Comment on above: Performed By: #### U A, UAMIC ####[place] [address] .Auto Diffon 03-09-2025 Basophil, Absolute 0.1 10 3/mcL Normal 0.0-0.3 [facility] Comment on above: Performed By: #### A DIFF, ANEU, GFR, CBC, LAC, LIP, CMP, MDW ####[place] [address] Basophils/100 WBC (Bld) 1.0 % Normal 0.0-2.5 [facility] Comment on above: Performed By: #### A DIFF, ANEU, GFR, CBC, LAC, LIP, CMP, MDW ####[place] [address] Eosinophil, Absolute 0.2 10 3/mcL Normal 0.0-0.7 [facility] Comment on above: Performed By: #### A DIFF, ANEU, GFR, CBC, LAC, LIP, CMP, MDW ####[place] [address] Eosinophils/100 WBC (Bld) 2.5 % Normal 0.0-6.0 [facility] Comment on above: Performed By: #### A DIFF, ANEU, GFR, CBC, LAC, LIP, CMP, MDW ####[place] [address] Lymphocyte, Absolute 2.2 10 3/mcL Normal 0.9-4.3 [facility] Comment on above: Performed By: #### A DIFF, ANEU, GFR, CBC, LAC, LIP, CMP, MDW ####[address] [address] Lymphocytes/100 WBC (Bld) 24.2 % Normal 20.0-40.0 [facility] Comment on above: Performed By: #### A DIFF, ANEU, GFR, CBC, LAC, LIP, CMP, MDW ####[address] [address] Monocyte, Absolute 0.6 10 3/mcL Normal 0.1-1.4 [facility] Comment on above: Performed By: #### A DIFF, ANEU, GFR, CBC, LAC, LIP, CMP, MDW ####[address] [address] Monocytes/100 WBC (Bld) 6.8 % Normal 2.0-13.0 [facility] Comment on above: Performed By: #### A DIFF, ANEU, GFR, CBC, LAC, LIP, CMP, MDW ####[address] [address] Neutrophils/100 WBC (Bld) 65.5 % Normal 50.0-75.0 [facility] Comment on above: Performed By: #### A DIFF, ANEU, GFR, CBC, LAC, LIP, CMP, MDW ####[address] [address] .GFRon 03-09-2025 Estimated Glomerular Filtration Rate 88 ml/min/1.73sqm Normal [facility] Comment on above: Result Comment: Stag [...] ANEU, GFR, CBC, LAC, LIP, CMP, YOUNG ####[place] [address] .MDWon 03-09-2025 Monocyte Distribution Width 14.95 Normal 0.00-20.00 [facility] Comment on above: Result Comment: For ED adult patients suspected of sepsis, MDW<=20.0 does not rule out sepsis or risk of sepsis Performed By: #### A DIFF, ANEU, GFR, CBC, LAC, LIP, CMP, MDW ####[place] [address] .NEUABSon 03-09-2025 Neutrophil, Absolute 5.9 10 3/mcL Normal 2.3-8.1 [facility] Comment on above: Performed By: #### A DIFF, ANEU, GFR, CBC, LAC, LIP, CMP, YOUNG ####[place] [address] CBCon 03-09-2025 Erythrocyte distribution width (RBC) [Ratio] 14.4 % Normal 11.5-15.5 [facility] Comment on above: Performed By: #### A DIFF, ANEU, GFR, CBC, LAC, LIP, CMP, YOUNG ####[place] [address] Hematocrit (Bld) [Volume fraction] 43.5 % Normal 34.0-46.0 [facility] Comment on above: Performed By: #### A DIFF, ANEU, GFR, CBC, LAC, LIP, CMP, YOUNG ####[place] [address] Hgb 14.6 G/dL Normal 12.0-16.0 [facility] Comment on above: Performed By: #### A DIFF, ANEU, GFR, CBC, LAC, LIP, CMP, YOUNG ####[place] [address] MCH (RBC) [Entitic mass] 32.5 pg Normal 27.0-33.0 [facility] Comment on above: Performed By: #### A DIFF, ANEU, GFR, CBC, LAC, LIP, CMP, YOUNG ####[place] [address] MCHC 33.7 G/dL Normal 32.0-36.0 [facility] Comment on above: Performed By: #### A DIFF, ANEU, GFR, CBC, LAC, LIP, CMP, MDW ####[place] [address] MCV (RBC) [Entitic vol] 96.5 fL Normal 80.0-99.0 [facility] Comment on above: Performed By: #### A DIFF, ANEU, GFR, CBC, LAC, LIP, CMP, MDW ####[place] [address] Platelet 370 10 3/mcL Normal 150-450 [facility] Comment on above: Performed By: #### A DIFF, ANEU, GFR, CBC, LAC, LIP, CMP, MDW ####[place] [address] Platelet mean volume (Bld) [Entitic vol] 7.4 fL Normal 6.6-10.5 [facility] Comment on above: Performed By: #### A DIFF, ANEU, GFR, CBC, LAC, LIP, CMP, MDW ####[place] [address] RBC 4.50 10 6/mcL Normal 4.10-5.30 [facility] Comment on above: Performed By: #### A DIFF, ANEU, GFR, CBC, LAC, LIP, CMP, MDW ####[place] [address] WBC 9.0 10 3/mcL Normal 4.5-10.8 [facility] Comment on above: Performed By: #### A DIFF, ANEU, GFR, CBC, LAC, LIP, CMP, MDW ####[place] [address] CMPon 03-09-2025 Albumin Level 4.4 G/dL Normal 3.2-4.8 [facility] Comment on above: Performed By: #### A DIFF, ANEU, GFR, CBC, LAC, LIP, CMP, MDW ####[place] [address] Albumin/Globulin [Mass ratio] 1.4 {ratio} Normal 0.9-1.6 [facility] Comment on above: Performed By: #### A DIFF, ANEU, GFR, CBC, LAC, LIP, CMP, MDW ####[place] [address] ALP [Catalytic activity/Vol] 76 U/L Normal 38-126 [facility] Comment on above: Performed By: #### A DIFF, ANEU, GFR, CBC, LAC, LIP, CMP, MDW ####[place] [address] ALT [Catalytic activity/Vol] 11 U/L Normal 10-49 [facility] Comment on above: Performed By: #### A DIFF, ANEU, GFR, CBC, LAC, LIP, CMP, MDW ####[place] [address] AST [Catalytic activity/Vol] 19 U/L Normal 8-34 [facility] Comment on above: Performed By: #### A DIFF, ANEU, GFR, CBC, LAC, LIP, CMP, MDW ####[place] [address] Bili Total 0.40 mg/dL Normal 0.20-1.20 [facility] Comment on above: Result Comment: Use of this assay is not recommended for patients undergoing treatment with eltrombopag due to the potential for falsely elevated results. Performed By: #### A DIFF, ANEU, GFR, CBC, LAC, LIP, CMP, MDW ####[place] [address] BUN/Creatinine Ratio 10.3 ratio Normal 10.0-22.0 [facility] Comment on above: Performed By: #### A DIFF, ANEU, GFR, CBC, LAC, LIP, CMP, MDW ####[place] [address] Calcium [Mass/Vol] 9.9 mg/dL Normal 8.7-10.4 [facility] Comment on above: Performed By: #### A DIFF, ANEU, GFR, CBC, LAC, LIP, CMP, MDW ####[place] [id number] Chloride [Moles/Vol] 109 mmol/L Normal 98-110 [facility] Comment on above: Performed By: #### A DIFF, ANEU, GFR, CBC, LAC, LIP, CMP, YOUNG ####[address] [address] CO2 [Moles/Vol] 27 mmol/L Normal 22-32 [facility] Comment on above: Performed By: #### A DIFF, ANEU, GFR, CBC, LAC, LIP, CMP, YOUNG ####[place] [id number] Creatinine [Mass/Vol] 0.87 mg/dL Normal 0.50-1.20 [facility] Comment on above: Result Comment: Test ing performed on Parakey analyzer using enzymatic creatinine methodology. Performed By: #### A DIFF, ANEU, GFR, CBC, LAC, LIP, CMPYOUNG ####[place] [address] Electrolyte Balance 4.0 mEq/L Normal 4.0-15.0 [facility] Comment on above: Performed By: #### A DIFF, ANEU, GFR, CBC, LAC, LIP, CMP, YOUNG ####[place] [address] Globulin 3.1 G/dL Normal 2.5-4.2 [facility] Comment on above: Performed By: #### A DIFF, ANEU, GFR, CBC, LAC, LIP, CMP, YOUNG ####[place] [id number] Glucose [Mass/Vol] 80 mg/dL Normal 70-110 [facility] Comment on above: Performed By: #### A DIFF, ANEU, GFR, CBC, LAC, LIP, CMP, YOUNG ####[place] [address] Potassium [Moles/Vol] 3.9 mmol/L Normal 3.5-5.0 [facility] Comment on above: Performed By: #### A DIFF, ANEU, GFR, CBC, LAC, LIP, CMP, YOUNG ####[facility] [place] [address] Sodium [Moles/Vol] 140 mmol/L Normal 136-145 [facility] Comment on above: Performed By: #### A DIFF, ANEU, GFR, CBC, LAC, LIP, CMP, MDW ####[place] [address] [address] [place] [address] Total Protein 7.5 G/dL Normal 5.7-8.2 [facility] Comment on above: Performed By: #### A DIFF, ANEU, GFR, CBC, LAC, LIP, CMP, MDW ####[place] [address] [address] [place] [address] Urea nitrogen [Mass/Vol] 9.0 mg/dL Normal 8.0-22.0 [facility] Comment on above: Performed By: #### A DIFF, ANEU, GFR, CBC, LAC, LIP, CMP, MDW ####[address] [address] [address] RENALon 03-09-2025 CT RENAL Normal [facility] LABORATORYOrdered By: Nicole Wilson on 03-09-2025 Appearance (U) Clear (03/09/25 2:30 PM) Normal Clear Auto Urine SS Bilirubin Ql (U) Negative (03/09/25 2:30 PM) Normal Neg-Trace Auto Urine SS Color (U) Yellow (03/09/25 [...] mg/dL Normal Negative Auto Urine SS UA Spec Grav <=1.005 *ABN* (03/09/25 2:30 PM) Invalid Interpretation Code 1.006-1.029 AH Auto Urine SS UA Specimen Type Not Given (03/09/25 2:30 PM) Normal AH Auto Urine SS UA Urobilinogen 0.2 E.U./dL Normal 0.2-1.0 AH Auto Urine SS LABORATORYOrdered By: Tricai Wilkerson on 03-09-2025 Bacteria LM.HPF (Urine sed) [...] above: Interpretive Data: T esting performed on Parakey analyzer using enzymatic creatinine methodology. Electrolyte Balance [...] Lactic Acid Lvl 0.9 mmol/L Normal 0.5-2.2 [facility] Comment on above: Performed By: #### A DIFF, ANEU, GFR, CBC, LAC, LIP, CMP, MDW ####[place] [address] LIPon 03-09-2025 Lipase Level 25 U/L Normal 12-53 [facility] Comment on above: Result Comment: No te - New Reference Range in effect 20 Performed By: #### A DIFF, ANEU, GFR, CBC, LAC, LIP, CMP, MDW ####[place] [address] UAon 03-09-2025 Color (U) Yellow Normal [facility] Comment on above: Performed By: #### U A, UAMIC ####[place] [address] Glucose (U) [Mass/Vol] Negative Normal Negative [facility] Comment on above: Performed By: #### U A, UAMIC ####[place] [address] Ketones Ql (U) Negative Normal Neg-Trace [facility] Comment on above: Performed By: #### U A, UAMIC ####[place] [address] UA Appear Clear Normal Clear [facility] Comment on above: Performed By: #### U A, UAMIC ####[place] [address] UA Blood Small Abnormal Neg-Trace [facility] Comment on above: Performed By: #### U A, UAMIC ####[place] [address] UA Leuk Est Moderate Abnormal Negative [facility] Comment on above: Performed By: #### U A, UAMIC ####[place] [address] UA Nitrite Negative Normal Negative [facility] Comment on above: Performed By: #### U A, UAMIC ####[place] [address] UA pH 7.5 Normal 5.0 - 8.0 [facility] Comment on above: Performed By: #### U A, UAMIC ####[place] [address] UA Protein Trace Normal Negative [facility] Comment on above: Performed By: #### U A, UAMIC ####[place] [address] UA Spec Grav <=1.005 Abnormal 1.006-1.029 [facility] Comment on above: Performed By: #### U A, UAMIC ####[place] [address] UA Specimen Type Not Given Normal [facility] Comment on above: Performed By: #### U A, UAMIC ####[place] [address] UA Urobilinogen 0.2 E.U./dL Normal 0.2-1.0 [facility] Comment on above: Performed By: #### U A, UAMIC ####[place] [address] Urobilinogen (U) [Mass/Vol] Negative Normal Neg-Trace [facility] Comment on above: Performed By: #### U A, UAMIC ####[place] [address] UAMICon 03-09-2025 UA Bacteria Trace Abnormal Negative [facility] Comment on above: Performed By: #### U A, UAMIC ####[place] [address] UA Crenated RBCs Rare Abnormal [facility] Comment on above: Performed By: #### U A, UAMIC ####[place] [address] UA RBC 3-5 Abnormal 0-2 [facility] Comment on above: Performed By: #### U A, UAMIC ####[facility] [place] [address] UA Squam Epithelial Rare Normal 0-20 [facility] Comment on above: Performed By: #### U A, UAMIC ####[facility] [place] [address] UA WBC 3-5 Normal 0-5 [facility] Comment on above: Performed By: #### U A, UAMIC ####[facility] [place] [address] XR CHEST 1 VIEWon 03-09-2025 XR CHEST 1 VIEW Normal [facility] ED MED ADMINISTRATION DETAIL on 03-08-2025 ED MED ADMINISTRATION DETAIL Normal [facility] ED MED ADMINISTRATION DETAIL Normal [facility] ED NURSES CLINICAL NOTEon ED NURSES CLINICAL NOTE Normal [facility] ED NURSES CLINICAL NOTE Normal [facility] ED ORDER SHEET (CPOE ONLY)on 03-08-2025 ED ORDER SHEET (CPOE ONLY) Normal [facility] ED ORDER SHEET (CPOE ONLY) Normal [facility] ED PHYSICIAN CLINICAL REPORT on 03-08-2025 ED PHYSICIAN CLINICAL REPORT Normal [facility] ED PHYSICIAN CLINICAL REPORT Normal [facility] ED SUPER BILLon 03-08-2025 ED SUPER BILL Normal [facility] ED SUPER BILL Normal [facility] ED VISIT SUMMARYon ED VISIT SUMMARY Normal [facility] ED VISIT SUMMARY Normal [facility] ED VITALS FLOW SHEETon 03-08 ED VITALS FLOW SHEET Normal [facility] ED VITALS FLOW SHEET Normal [facility] URINE CULTURE [CCL]on 2024 Bacteria identified Cx Nom (U) Normal [facility] Comment on above: Performed By: #### 2 77780 ####[facility],[address] [place] [address] BMP with eGFRon 03-07-2025 AGE 34 years Normal [facility] Comment on above: Performed By: #### 2 16729 ####[facility],[address] [place] [address] Anion gap [Moles/Vol] 14 mmol/L Normal 10 - 20 [facility] Comment on above: Performed By: #### 2 22950 ####[facility],[address] [place] [address] BMP with eGFR Normal [facility] Comment on above: Result Comment: BASI C METABOLIC PANEL Performed By: #### 2 54253 ####[facility],[address] [place] [address] Calcium [Mass/Vol] 8.8 mg/dL Normal 8.5 - 10.1 [facility] Comment on above: Performed By: #### 2 36581 ####[facility],[address] [place] [address] Chloride [Moles/Vol] 105 mmol/L Normal 98 - 107 [facility] Comment on above: Performed By: #### 2 50324 ####[facility],[address] [place] [address] CO2 [Moles/Vol] 26.5 mmol/L Normal 21.0 - 32.0 [facility] Comment on above: Performed By: #### 2 53205 ####[facility],[address] [place] [address] Creatinine [Mass/Vol] 0.94 mg/dL Normal 0.55 - 1.02 [facility] Comment on above: Performed By: #### 2 11099 ####[facility],[address] [place] [address] GFR/1.73 sq M.predicted among non-blacks MDRD (S/P/Bld) [Vol rate/Area] mL/min/{1.73_m2} Normal 60 - 999 [facility] Comment on above: Performed By: #### 2 13955 ####[facility],[address] [place] [address] Result Comment: ACCO RDING TO THE NATIONAL KIDNEY DISEASE EDUCATION PROGRAM(NKDE), A NORMAL eGFRIS A VALUE GREATER THAN OR EQUAL TO 60 ML/MIN/1.73 SQ METERS.CHRONIC KIDNEY DISEASE: <60mL/MIN/1.73 SQ METERSKIDNEY FAILURE: <15mL/MIN/1.73 SQ METERSTHIS TEST SHOULD ONLY BE USED FOR PATIENTS 18 YEARS OF AGE AND OLDER. Glucose [Mass/Vol] 109 mg/dL High 74 - 106 [facility] Comment on above: Performed By: #### 2 56444 ####[facility],[address] [place] [address] Potassium [Moles/Vol] 3.7 mmol/L Normal 3.5 - 5.1 [facility] Comment on above: Performed By: #### 2 33828 ####[place] [phone] Sodium [Moles/Vol] 142 mmol/L Normal 136 - 145 [facility] Comment on above: Performed By: #### 2 89714 ####[facility],[address] [place], [place] [phone] Urea nitrogen [Mass/Vol] 11 mg/dL Normal 7 - 18 [facility] Comment on above: Performed By: #### 2 30554 ####[address] [address] CBC + DIFFon 03-07-2025 Baso # 0.04 x10EE3/UL Normal 0.00 - 0.10 [facility] Comment on above: Performed By: #### 2 86810 ####[address] [address] Basophils/100 WBC (Bld) 0.5 % Normal 0.0 - 2.0 [facility] Comment on above: Performed By: #### 2 18555 ####[place] [phone] CBC + DIFF Normal [facility] Comment on above: Result Comment: CBC- COMPLETE BLOOD COUNT Performed By: #### 2 27776 ####[address] [address] EO # 0.19 x10EE3/UL Normal 0.00 - 0.50 [facility] Comment on above: Performed By: #### 2 48144 ####[place] [address] Eosinophils/100 WBC (Bld) 2.5 % Normal 0.0 - 7.0 [facility] Comment on above: Performed By: #### 2 35773 ####[place] [address] Erythrocyte distribution width (RBC) [Ratio] 13.4 % Normal 12.0 - 15.6 [facility] Comment on above: Performed By: #### 2 36607 ####[place] [address] Hematocrit (Bld) [Volume fraction] 36.1 % Normal 34.0 - 46.0 [facility] Comment on above: Performed By: #### 2 60803 ####[place] [address] Hemoglobin (Bld) [Mass/Vol] 12.4 g/dL Normal 12.0 - 16.0 [facility] Comment on above: Performed By: #### 2 90593 ####[place] [id number] Lymph # 2.18 x10EE3/UL Normal 0.80 - 2.80 [facility] Comment on above: Performed By: #### 2 57477 ####[place] [address] Lymphocytes/100 WBC (Bld) 27.9 % Normal 20.0 - 45.0 [facility] Comment on above: Performed By: #### 2 70137 ####[address],[place] [address] MANUAL DIFF N/A Normal [facility] Comment on above: Performed By: #### 2 44227 ####[facility],[address] [place] [address] MCH (RBC) [Entitic mass] 33 pg Normal 27 - 33 [facility] Comment on above: Performed By: #### 2 85571 ####[facility],[address] [place] [address] MCHC 34 X10 3 Normal 32 - 36 [facility] Comment on above: Performed By: #### 2 75548 ####[facility],[address] [place] [address] MCV (RBC) [Entitic vol] 97 fL Normal 80 - 99 [facility] Comment on above: Performed By: #### 2 75777 ####[facility],[address] [place] [address] [place] # 0.67 x10EE3/UL Normal 0.20 - 1.00 [facility] Comment on above: Performed By: #### 2 94173 ####[facility],[address] [place] [address] MONOS % 8.5 % Normal 0.0 - 10.0 [facility] Comment on above: Performed By: #### 2 05102 ####[facility],[address] [place] [address] Morphology Efra (Bld) [Interp] N/A Normal [facility] Comment on above: Performed By: #### 2 43537 ####[facility],[address] [place] [address] Neut # 4.76 x10EE3/UL Normal 1.50 - 7.10 [facility] Comment on above: Performed By: #### 2 34517 ####[place] [address] Neutrophils/100 WBC (Bld) 60.8 % Normal 46.0 - 76.0 [facility] Comment on above: Performed By: #### 2 29143 ####[facility],[address] [place], [place] [phone] PLATELET 367 x10EE3/UL Normal 150 - 450 [facility] Comment on above: Performed By: #### 2 59821 ####[facility],[address] [place] [address] Platelet mean volume (Bld) [Entitic vol] 6.9 fL Normal 6.6 - 10.5 [facility] Comment on above: Result Comment: AUTO MATED DIFFERENTIAL Performed By: #### 2 17268 ####[facility],[address] [place] [address] RBC 3.74 x 10EE6/UL Low 4.10 - 5.30 [facility] Comment on above: Performed By: #### 2 73716 ####[facility],[address] [place], [place] [id number] WBC 7.8 x 10EE3/UL Normal 4.5 - 10.8 [facility] Comment on above: Performed By: #### 2 53725 ####[facility],[address] [place], [place] [id number] ED MED ADMINISTRATION DETAIL on 03-07-2025 ED MED ADMINISTRATION DETAIL Normal [facility] ED NURSES CLINICAL NOTEon ED NURSES CLINICAL NOTE Normal [facility] ED ORDER SHEET (CPOE ONLY)on 03-07-2025 ED ORDER SHEET (CPOE ONLY) Normal [facility] ED PHYSICIAN CLINICAL REPORT on 03-07-2025 ED PHYSICIAN CLINICAL REPORT Normal [facility] ED SUPER BILLon 03-07-2025 ED SUPER BILL Normal [facility] ED VISIT SUMMARYon ED VISIT SUMMARY Normal [facility] ED VITALS FLOW SHEETon 03-07 ED VITALS FLOW SHEET Normal [facility] CMP with eGFRon 03-06-2025 AGE 34 years Normal [facility] Comment on above: Performed By: #### 2 [id number] ####[facility],[address] [place] [id number] Albumin [Mass/Vol] 3.5 g/dL Normal 3.4 - 5.0 [facility] Comment on above: Performed By: #### 2 [id number] ####[facility],[address] [place] [address] Albumin/Globulin [Mass ratio] 1.2 {ratio} Normal 0.9 - 1.6 [facility] Comment on above: Performed By: #### 2 [id number] ####[facility],[address] [place] [id number] ALK PHOS 70 U/L Normal 46 - 116 [facility] Comment on above: Performed By: #### 2 [id number] ####[place] [id number] ALT [Catalytic activity/Vol] 15 U/L Low 16 - 63 [facility] Comment on above: Performed By: #### 2 [id number] ####[address] [address] Anion gap [Moles/Vol] 11 mmol/L Normal 10 - 20 [facility] Comment on above: Performed By: #### 2 [id number] ####[address] [address] AST [Catalytic activity/Vol] 21 U/L Normal 13 - 39 [facility] Comment on above: Result Comment: NATHANIEL ANA LILIA SAMPLE;MANUAL DILUTION PERFORMED Performed By: #### 2 [id number] ####[address] [address] B/C RATIO 11 ratio Normal 0 - 30 [facility] Comment on above: Performed By: #### 2 [id number] ####[address] [address] Bilirubin [Mass/Vol] 0.3 mg/dL Normal 0.2 - 1.0 [facility] Comment on above: Performed By: #### 2 [id number] ####[facility] [facility],[address] [place] [address] 77132 Calcium [Mass/Vol] 8.8 mg/dL Normal 8.5 - 10.1 [facility] Comment on above: Performed By: #### 2 86573 ####[facility],[address] [place] [address] 70926 Chloride [Moles/Vol] 107 mmol/L Normal 98 - 107 [facility] Comment on above: Performed By: #### 2 11241 ####[facility],[address] [place] [address] 66888 CMP with eGFR Normal [facility] Comment on above: Result Comment: COMP REHENSIVE METABOLIC PANEL Performed By: #### 2 52422 ####[facility],[address] [place] [address] 14486 CO2 [Moles/Vol] 24.2 mmol/L Normal 21.0 - 32.0 [facility] Comment on above: Performed By: #### 2 00211 ####[facility],[address] [place] [address] 10330 Creatinine [Mass/Vol] 1.03 mg/dL High 0.55 - 1.02 [facility] Comment on above: Performed By: #### 2 70812 ####[facility],[address] [place] [address] 46417 GFR/1.73 sq M.predicted among non-blacks MDRD (S/P/Bld) [Vol rate/Area] mL/min/{1.73_m2} Normal 60 - 999 [facility] Comment on above: Performed By: #### 2 54151 ####[facility],[address] [place] [address] 47678 Result Comment: ACCO RDING TO THE NATIONAL KIDNEY DISEASE EDUCATION PROGRAM(NKDE), A NORMAL eGFRIS A VALUE GREATER THAN OR EQUAL TO 60 ML/MIN/1.73 SQ METERS.CHRONIC KIDNEY DISEASE: <60mL/MIN/1.73 SQ METERSKIDNEY FAILURE: <15mL/MIN/1.73 SQ METERSTHIS TEST SHOULD ONLY BE USED FOR PATIENTS 18 YEARS OF AGE AND OLDER. Globulin (S) [Mass/Vol] 2.9 g/dL Normal 1.5 - 3.8 [facility] Comment on above: Performed By: #### 2 92087 ####[facility],[address] [place] [address] 46337 Glucose [Mass/Vol] 111 mg/dL High 74 - 106 [facility] Comment on above: Performed By: #### 2 03393 ####[facility],[address] [place] [address] 20489 Potassium [Moles/Vol] 3.6 mmol/L Normal 3.5 - 5.1 [facility] Comment on above: Performed By: #### 2 74056 ####[facility],[address] [place] [address] 64117 Protein [Mass/Vol] 6.4 g/dL Normal 6.4 - 8.2 [facility] Comment on above: Performed By: #### 2 77197 ####[facility],[address] [place] [address] 96999 Sodium [Moles/Vol] 139 mmol/L Normal 136 - 145 [facility] Comment on above: Performed By: #### 2 72871 ####[facility],[address] [place] [address] 38636 Urea nitrogen [Mass/Vol] 11 mg/dL Normal 7 - 18 [facility] Comment on above: Performed By: #### 2 06672 ####[facility],[address] [place] [address] 63718 CBC + DIFFon 03-05-2025 Baso # 0.03 x10EE3/UL Normal 0.00 - 0.10 [facility] Comment on above: Performed By: #### 2 35339 ####[facility],[address] [place] [address] 09882 Basophils/100 WBC (Bld) 0.3 % Normal 0.0 - 2.0 [facility] Comment on above: Performed By: #### 2 61542 ####[facility],[address] [place] [address] CBC + DIFF Normal [facility] Comment on above: Result Comment: CBC- COMPLETE BLOOD COUNT Performed By: #### 2 83978 ####[facility],[address] [place] [address] EO # 0.28 x10EE3/UL Normal 0.00 - 0.50 [facility] Comment on above: Performed By: #### 2 59662 ####[facility],[address] [place] [address] Eosinophils/100 WBC (Bld) 3.0 % Normal 0.0 - 7.0 [facility] Comment on above: Performed By: #### 2 86936 ####[facility],[address] [place] [address] Erythrocyte distribution width (RBC) [Ratio] 13.4 % Normal 12.0 - 15.6 [facility] Comment on above: Performed By: #### 2 32101 ####[facility],[address] [place] [address] Hematocrit (Bld) [Volume fraction] 38.4 % Normal 34.0 - 46.0 [facility] Comment on above: Performed By: #### 2 46597 ####[facility],[address] [place], [place] [address] Hemoglobin (Bld) [Mass/Vol] 13.7 g/dL Normal 12.0 - 16.0 [facility] Comment on above: Performed By: #### 2 15263 ####[facility],[address] [place] [address] Lymph # 2.75 x10EE3/UL Normal 0.80 - 2.80 [facility] Comment on above: Performed By: #### 2 42596 ####[facility],[address] [place] [address] Lymphocytes/100 WBC (Bld) 30.0 % Normal 20.0 - 45.0 [facility] Comment on above: Performed By: #### 2 82342 ####[facility],[address] [place] [address] MANUAL DIFF N/A Normal [facility] Comment on above: Performed By: #### 2 79203 ####[facility],[address] [place] [address] MCH (RBC) [Entitic mass] 34 pg High 27 - 33 [facility] Comment on above: Performed By: #### 2 51528 ####[place] [address] MCHC 36 X10 3 Normal 32 - 36 [facility] Comment on above: Performed By: #### 2 52383 ####[place] [id number] MCV (RBC) [Entitic vol] 95 fL Normal 80 - 99 [facility] Comment on above: Performed By: #### 2 72262 ####[facility],[address] [place] [address] [place] # 0.71 x10EE3/UL Normal 0.20 - 1.00 [facility] Comment on above: Performed By: #### 2 71228 ####[place] [address] MONOS % 7.7 % Normal 0.0 - 10.0 [facility] Comment on above: Performed By: #### 2 42787 ####[facility],[address] [place], [place] [address] Morphology Efra (Bld) [Interp] N/A Normal [facility] Comment on above: Performed By: #### 2 49836 ####[facility],[address] [place] [address] Neut # 5.41 x10EE3/UL Normal 1.50 - 7.10 [facility] Comment on above: Performed By: #### 2 30372 ####[place] [address] Neutrophils/100 WBC (Bld) 59.0 % Normal 46.0 - 76.0 [facility] Comment on above: Performed By: #### 2 02891 ####[place] [address] PLATELET 347 x10EE3/UL Normal 150 - 450 [facility] Comment on above: Performed By: #### 2 11195 ####[place] [address] Platelet mean volume (Bld) [Entitic vol] 6.8 fL Normal 6.6 - 10.5 [facility] Comment on above: Result Comment: AUTO MATED DIFFERENTIAL Performed By: #### 2 58268 ####[place] [id number] RBC 4.05 x 10EE6/UL Low 4.10 - 5.30 [facility] Comment on above: Performed By: #### 2 85714 ####[place] [address] WBC 9.2 x 10EE3/UL Normal 4.5 - 10.8 [facility] Comment on above: Performed By: #### 2 92590 ####[place] [id number] CT KUB (KIDNEY STONE PROTOCO L)on 03-05-2025 CT KUB (KIDNEY STONE PROTOCOL) Normal [facility] LACTATEon 03-05-2025 Lactate [Moles/Vol] 1.5 mmol/L Normal 0.4 - 2.0 [facility] Comment on above: Performed By: #### 2 43905 ####[facility],[address] [place] [address] 02785 URINALYSISon 03-05-2025 Amorphous 1+ Normal [facility] Comment on above: Performed By: #### 2 73257 ####[facility],[address] [place] [address] 72213 Bacteria 3+ Normal [facility] Comment on above: Performed By: #### 2 53465 ####[facility],[address] [place] [address] 88408 Bilirubin Ql (U) Negative Normal NORMAL: NEGATIVE [facility] Comment on above: Performed By: #### 2 12994 ####[facility],[address] [place], [place] [phone] Casts NONE Normal [facility] Comment on above: Performed By: #### 2 09585 ####[facility],[address] [place] [address] 62349 Clarity (U) sl.cloudy Normal NORMAL: CLEAR [facility] Comment on above: Performed By: #### 2 29160 ####[facility],[address] [place] [address] 56568 Color (U) p.yel Normal NORMAL: YELLOW [facility] Comment on above: Performed By: #### 2 29356 ####[facility],[address] [place] [address] 94573 Crystals LM Nom (Urine sed) NONE Normal [facility] Comment on above: Performed By: #### 2 39346 ####[facility],[address] [place] [address] 36504 Epi Cells FEW Normal [facility] Comment on above: Performed By: #### 2 20851 ####[facility],[address] [place] [address] 52169 Glucose Ql (U) NORM Normal NORMAL: NORMAL [facility] Comment on above: Performed By: #### 2 40669 ####[facility],[address] [place] [address] 67077 Hemoglobin Ql (U) 50 Abnormal NORMAL: NEGATIVE [facility] Comment on above: Performed By: #### 2 96355 ####[facility],[address] [place] [address] 96332 Ketone Negative Normal NORMAL: NEGATIVE [facility] Comment on above: Performed By: #### 2 89101 ####[facility],[address] [place] [address] 45579 Leukocytes 500 Abnormal NORMAL: NEGATIVE [facility] Comment on above: Performed By: #### 2 05147 ####[facility],[address] [place] [address] 58395 Mucous NONE Normal [facility] Comment on above: Performed By: #### 2 14767 ####[facility],[address] [place] [address] 25999 Nitrite Ql (U) Negative Normal NORMAL: NEGATIVE [facility] Comment on above: Performed By: #### 2 01423 ####[facility],[address] [place] [address] 21095 pH (U) 7 [pH] Normal NORMAL: 5.0-8.0 [facility] Comment on above: Performed By: #### 2 26130 ####[facility],[address] [place] [address] 07617 Protein Ql (U) 30 Abnormal NORMAL: NEGATIVE [facility] Comment on above: Performed By: #### 2 79753 ####[facility],[address] [place] [address] 66723 Rbc 0-5 Normal 0-3/hpf [facility] Comment on above: Performed By: #### 2 52398 ####[facility],[address] [place] [address] 95058 Sp [place] 1.010 Normal NORMAL: 1.010-1.030 [facility] Comment on above: Performed By: #### 2 12266 ####[facility],[address] [place] [address] Specimen Type R Normal [facility] Comment on above: Performed By: #### 2 36457 ####[facility],[address] [place] [address] Urinalysis dipstick W Reflex Microscopic panel (U) SEE BELOW Normal [facility] Comment on above: Result Comment: MICR OSCOPIC Performed By: #### 2 23377 ####[facility],[address] [place] [address] Urobilinog NORM Normal NORMAL: NORMAL [facility] Comment on above: Performed By: #### 2 62037 ####[facility],[address] [place] [address] Wbc 26-50 Normal 0-5/hpf [facility] Comment on above: Performed By: #### 2 93029 ####[facility],[address] [place] [address] Yeast NONE Normal [facility] Comment on above: Performed By: #### 2 32058 ####[facility],[address] [place] [address] .Auto Diffon 02-16-2025 Basophil, Absolute 0.1 10 3/mcL Normal 0.0-0.3 [facility] Comment on above: Performed By: #### A DIFF, CBC, BMP, ANEU, GFR ####[place] [address] [address] [place] [address] 33825 Basophils/100 WBC (Bld) 0.7 % Normal 0.0-2.5 [facility] Comment on above: Performed By: #### A DIFF, CBC, BMP, ANEU, GFR ####[place] [address] [address] [place] [address] 85184 Eosinophil, Absolute 0.3 10 3/mcL Normal 0.0-0.7 [facility] Comment on above: Performed By: #### A DIFF, CBC, BMP, ANEU, GFR ####[address] [address] Eosinophils/100 WBC (Bld) 4.1 % Normal 0.0-6.0 [facility] Comment on above: Performed By: #### A DIFF, CBC, BMP, ANEU, GFR ####[address] [address] Lymphocyte, Absolute 2.1 10 3/mcL Normal 0.9-4.3 [facility] Comment on above: Performed By: #### A DIFF, CBC, BMP, ANEU, GFR ####[address] [address] Lymphocytes/100 WBC (Bld) 28.4 % Normal 20.0-40.0 [facility] Comment on above: Performed By: #### A DIFF, CBC, BMP, ANEU, GFR ####[address] [address]27 Monocyte, Absolute 0.6 10 3/mcL Normal 0.1-1.4 [facility] Comment on above: Performed By: #### A DIFF, CBC, BMP, ANEU, GFR ####[address] [address] Monocytes/100 WBC (Bld) 8.2 % Normal 2.0-13.0 [facility] Comment on above: Performed By: #### A DIFF, CBC, BMP, ANEU, GFR ####[address] [address] Neutrophils/100 WBC (Bld) 58.6 % Normal 50.0-75.0 [facility] Comment on above: Performed By: #### A DIFF, CBC, BMP, ANEU, GFR ####[address] [address] .GFRon 02-16-2025 Estimated Glomerular Filtration Rate 98 ml/min/1.73sqm Normal [facility] Comment on above: Result Comment: Stag [...] #### A DIFF, CBC, BMP, ANEU, GFR ####[address] [address] .NEUABSon 02-16-2025 Neutrophil, Absolute 4.3 10 3/mcL Normal 2.3-8.1 [facility] Comment on above: Performed By: #### A DIFF, CBC, BMP, ANEU, GFR ####[address] [address] BMPon 02-16-2025 BUN/Creatinine Ratio 8.8 ratio Low 10.0-22.0 [facility] Comment on above: Order Comment: hemol yzed 02/16/2025 07:26:12 EDT Performed By: #### A DIFF, CBC, BMP, ANEU, GFR ####[address] [address] Calcium [Mass/Vol] 10.0 mg/dL Normal 8.7-10.4 [facility] Comment on above: Order Comment: hemol yzed 02/16/2025 07:26:12 EDT Performed By: #### A DIFF, CBC, BMP, ANEU, GFR ####[address] [address] Chloride [Moles/Vol] 106 mmol/L Normal 98-110 [facility] Comment on above: Order Comment: hemol yzed 02/16/2025 07:26:12 EDT Performed By: #### A DIFF, CBC, BMP, ANEU, GFR ####[address] [address] CO2 [Moles/Vol] 27 mmol/L Normal 22-32 [facility] Comment on above: Order Comment: hemol yzed 02/16/2025 07:26:12 EDT Performed By: #### A DIFF, CBC, BMP, ANEU, GFR ####[address] [address] Creatinine [Mass/Vol] 0.80 mg/dL Normal 0.50-1.20 [facility] Comment on above: Order Comment: hemol yzed 02/16/2025 07:26:12 EDT Result Comment: Test ing performed on Parakey analyzer using enzymatic creatinine methodology. Performed By: #### A DIFF, CBC, BMP, ANEU, GFR ####[address] [address] Electrolyte Balance 5.0 mEq/L Normal 4.0-15.0 [facility] Comment on above: Order Comment: hemol yzed 02/16/2025 07:26:12 EDT Performed By: #### A DIFF, CBC, BMP, ANEU, GFR ####[address] [address] Glucose [Mass/Vol] 89 mg/dL Normal 70-110 [facility] Comment on above: Order Comment: hemol yzed 02/16/2025 07:26:12 EDT Performed By: #### A DIFF, CBC, BMP, ANEU, GFR ####[address] [address] Potassium [Moles/Vol] 3.7 mmol/L Normal 3.5-5.0 [facility] Comment on above: Order Comment: hemol yzed 02/16/2025 07:26:12 EDT Performed By: #### A DIFF, CBC, BMP, ANEU, GFR ####[address] [address] Sodium [Moles/Vol] 138 mmol/L Normal 136-145 [facility] Comment on above: Order Comment: hemol yzed 02/16/2025 07:26:12 EDT Performed By: #### A DIFF, CBC, BMP, ANEU, GFR ####[address] [address] Urea nitrogen [Mass/Vol] 7.0 mg/dL Low 8.0-22.0 [facility] Comment on above: Order Comment: hemol yzed 02/16/2025 07:26:12 EDT Performed By: #### A DIFF, CBC, BMP, ANEU, GFR ####[place] [address] CBCon 02-16-2025 Erythrocyte distribution width (RBC) [Ratio] 14.1 % Normal 11.5-15.5 [facility] Comment on above: Performed By: #### A DIFF, CBC, BMP, ANEU, GFR ####[place] [address] Hematocrit (Bld) [Volume fraction] 43.1 % Normal 34.0-46.0 [facility] Comment on above: Performed By: #### A DIFF, CBC, BMP, ANEU, GFR ####[place] [address] Hgb 14.6 G/dL Normal 12.0-16.0 [facility] Comment on above: Performed By: #### A DIFF, CBC, BMP, ANEU, GFR ####[place] [address] MCH (RBC) [Entitic mass] 32.9 pg Normal 27.0-33.0 [facility] Comment on above: Performed By: #### A DIFF, CBC, BMP, ANEU, GFR ####[place] [address] MCHC 33.9 G/dL Normal 32.0-36.0 [facility] Comment on above: Performed By: #### A DIFF, CBC, BMP, ANEU, GFR ####[place] [address] MCV (RBC) [Entitic vol] 97.2 fL Normal 80.0-99.0 [facility] Comment on above: Performed By: #### A DIFF, CBC, BMP, ANEU, GFR ####[place] [address] Platelet 296 10 3/mcL Normal 150-450 [facility] Comment on above: Performed By: #### A DIFF, CBC, BMP, ANEU, GFR ####[place] [address] Platelet mean volume (Bld) [Entitic vol] 7.5 fL Normal 6.6-10.5 [facility] Comment on above: Performed By: #### A DIFF, CBC, BMP, ANEU, GFR ####[place] [address] [address] [place] [address] 82851 RBC 4.44 10 6/mcL Normal 4.10-5.30 [facility] Comment on above: Performed By: #### A DIFF, CBC, BMP, ANEU, GFR ####[facility] [place] [address] 34789 WBC 7.3 10 3/mcL Normal 4.5-10.8 [facility] Comment on above: Performed By: #### A DIFF, CBC, BMP, ANEU, GFR ####[place] [address] [place] [address] IR NEPHROSTOMY EXCHANGEon IR NEPHROSTOMY EXCHANGE Normal [facility] LABORATORYOrdered By: SYSTEM SYSTEM on 02-16-2025 Calcium [Mass/Vol] 10.0 mg/dL Normal 8.7 - 10. 4 mg/dL ADM SS Chloride [Moles/Vol] 106 mmol/L Normal 98 - 11 0 mEq/L AH ADM SS CO2 [Moles/Vol] 27 mmol/L Normal 22 - 32 mEq/L ADM SS Creatinine [Mass/Vol] 0.80 mg/dL Normal 0.50 - 1.20 mg/dL ADM SS Comment on above: Interpretive Data: T esting performed on Parakey analyzer using enzymatic creatinine methodology. Electrolyte Balance [...] 97.2 fL Normal 80.0 - 99.0 fL Workflow [...] test) Ql (U) Negative (02/16/25 6:58 AM) [facility] Work Phone: CBC + DIFFon 02-10-2025 Baso # 0.03 x10EE3/UL Normal 0.00 - 0.10 [facility] Comment on above: Performed By: #### 2 50998 ####[facility],[address] [place] [address] Basophils/100 WBC (Bld) 0.3 % Normal 0.0 - 2.0 [facility] Comment on above: Performed By: #### 2 51022 ####[facility],[address] [place] [address] CBC + DIFF Normal [facility] Comment on above: Result Comment: CBC- COMPLETE BLOOD COUNT Performed By: #### 2 89059 ####[facility],[address] [place], [place] [id number] EO # 0.11 x10EE3/UL Normal 0.00 - 0.50 [facility] Comment on above: Performed By: #### 2 81026 ####[facility],[address] [place] [address] 83480 Eosinophils/100 WBC (Bld) 1.1 % Normal 0.0 - 7.0 [facility] Comment on above: Performed By: #### 2 01093 ####[facility],[address] [place] [address] Erythrocyte distribution width (RBC) [Ratio] 13.3 % Normal 12.0 - 15.6 [facility] Comment on above: Performed By: #### 2 60056 ####[facility],[address] [place] [address] Hematocrit (Bld) [Volume fraction] 41.1 % Normal 34.0 - 46.0 [facility] Comment on above: Performed By: #### 2 63149 ####[facility],[address] [place] [address] Hemoglobin (Bld) [Mass/Vol] 14.7 g/dL Normal 12.0 - 16.0 [facility] Comment on above: Performed By: #### 2 75484 ####[facility],[address] [place] [address] 85201 Lymph # 3.18 x10EE3/UL High 0.80 - 2.80 [facility] Comment on above: Performed By: #### 2 76078 ####[facility],[address] [place] [address] 99389 Lymphocytes/100 WBC (Bld) 29.2 % Normal 20.0 - 45.0 [facility] Comment on above: Performed By: #### 2 45441 ####[facility],[address] [place] [address] 85209 MANUAL DIFF N/A Normal [facility] Comment on above: Performed By: #### 2 78648 ####[facility],[address] [place] [address] 25581 MCH (RBC) [Entitic mass] 34 pg High 27 - 33 [facility] Comment on above: Performed By: #### 2 10783 ####[facility],[address] [place] [address] 99260 MCHC 36 X10 3 Normal 32 - 36 [facility] Comment on above: Performed By: #### 2 58063 ####[facility],[address] [place] [address] 93501 MCV (RBC) [Entitic vol] 96 fL Normal 80 - 99 [facility] Comment on above: Performed By: #### 2 90641 ####[facility],[address] [place] [address] 35798 [place] # 0.64 x10EE3/UL Normal 0.20 - 1.00 [facility] Comment on above: Performed By: #### 2 31399 ####[facility],[address] [place] [address] 32802 MONOS % 5.9 % Normal 0.0 - 10.0 [facility] Comment on above: Performed By: #### 2 48379 ####[facility],[address] [place] [address] 30978 Morphology Efra (Bld) [Interp] N/A Normal [facility] Comment on above: Performed By: #### 2 70706 ####[facility],[address] [place] [address] 20136 Neut # 6.90 x10EE3/UL Normal 1.50 - 7.10 [facility] Comment on above: Performed By: #### 2 98386 ####[facility],[address] [place] [address] 74470 Neutrophils/100 WBC (Bld) 63.5 % Normal 46.0 - 76.0 [facility] Comment on above: Performed By: #### 2 73496 ####[facility],[address] [place] [address] 41933 PLATELET 320 x10EE3/UL Normal 150 - 450 [facility] Comment on above: Performed By: #### 2 35713 ####[facility],[address] [place] [address] 34715 Platelet mean volume (Bld) [Entitic vol] 6.6 fL Normal 6.6 - 10.5 [facility] Comment on above: Result Comment: AUTO MATED DIFFERENTIAL Performed By: #### 2 45624 ####[facility],[address] [place] [address] 51444 RBC 4.29 x 10EE6/UL Normal 4.10 - 5.30 [facility] Comment on above: Performed By: #### 2 73250 ####[facility],[address] [place], [place] [address] WBC 10.9 x 10EE3/UL High 4.5 - 10.8 [facility] Comment on above: Performed By: #### 2 38841 ####[facility],[address] [place], [place] [address] CMP with eGFRon 02-10-2025 AGE 34 years Normal [facility] Comment on above: Performed By: #### 2 97696 ####[facility],[address] [place], [place] [id number] Albumin [Mass/Vol] 4.0 g/dL Normal 3.4 - 5.0 [facility] Comment on above: Performed By: #### 2 83566 ####[facility],[address] [place], [place] [address] Albumin/Globulin [Mass ratio] 1.3 {ratio} Normal 0.9 - 1.6 [facility] Comment on above: Performed By: #### 2 94589 ####[facility],[address] [place] [address] 68524 ALK PHOS 73 U/L Normal 46 - 116 [facility] Comment on above: Performed By: #### 2 25333 ####[facility],[address] [place] [address] 07165 ALT [Catalytic activity/Vol] 13 U/L Low 16 - 63 [facility] Comment on above: Performed By: #### 2 48376 ####[facility],[address] [place] [address] 09109 Anion gap [Moles/Vol] 17 mmol/L Normal 10 - 20 [facility] Comment on above: Performed By: #### 2 21675 ####[facility],[address] [place] [address] 65818 AST [Catalytic activity/Vol] 11 U/L Low 13 - 39 [facility] Comment on above: Performed By: #### 2 53384 ####[facility],[address] [place] [address] 39370 B/C RATIO 12 ratio Normal 0 - 30 [facility] Comment on above: Performed By: #### 2 85174 ####[facility],[address] [place] [address] 63507 Bilirubin [Mass/Vol] 0.6 mg/dL Normal 0.2 - 1.0 [facility] Comment on above: Performed By: #### 2 90174 ####[facility],[address] [place] [address] 84199 Calcium [Mass/Vol] 9.5 mg/dL Normal 8.5 - 10.1 [facility] Comment on above: Performed By: #### 2 28002 ####[facility],[address] [place] [address] 90262 Chloride [Moles/Vol] 100 mmol/L Normal 98 - 107 [facility] Comment on above: Performed By: #### 2 51443 ####[facility],[address] [place] [address] 66339 CMP with eGFR Normal [facility] Comment on above: Result Comment: COMP REHENSIVE METABOLIC PANEL Performed By: #### 2 84940 ####[facility],[address] [place] [address] 03208 CO2 [Moles/Vol] 25.6 mmol/L Normal 21.0 - 32.0 [facility] Comment on above: Performed By: #### 2 90354 ####[address] [address] Creatinine [Mass/Vol] 1.10 mg/dL High 0.55 - 1.02 [facility] Comment on above: Performed By: #### 2 05011 ####[facility],[address] [place], [place] [id number] eGFR 56 ML/MINUTE Low 60 - 999 [facility] Comment on above: Performed By: #### 2 46667 ####[facility] [facility],[address] [place] [address] 15833 GFR/1.73 sq M.predicted among non-blacks MDRD (S/P/Bld) [Vol rate/Area] mL/min/{1.73_m2} Normal 60 - 999 [facility] Comment on above: Result Comment: ACCO RDING TO THE NATIONAL KIDNEY DISEASE EDUCATION PROGRAM(NKDE), A NORMAL eGFRIS A VALUE GREATER THAN OR EQUAL TO 60 ML/MIN/1.73 SQ METERS.CHRONIC KIDNEY DISEASE: <60mL/MIN/1.73 SQ METERSKIDNEY FAILURE: <15mL/MIN/1.73 SQ METERSTHIS TEST SHOULD ONLY BE USED FOR PATIENTS 18 YEARS OF AGE AND OLDER. Performed By: #### 2 51462 ####[facility],[address] [place] [address] 09766 Globulin (S) [Mass/Vol] 3.2 g/dL Normal 1.5 - 3.8 [facility] Comment on above: Performed By: #### 2 28939 ####[address] [address] Glucose [Mass/Vol] 72 mg/dL Low 74 - 106 [facility] Comment on above: Performed By: #### 2 77658 ####[facility],[address] [place] [address] 20671 Potassium [Moles/Vol] 3.4 mmol/L Low 3.5 - 5.1 [facility] Comment on above: Performed By: #### 2 90874 ####[facility],[address] [place], [place] [id number] Protein [Mass/Vol] 7.2 g/dL Normal 6.4 - 8.2 [facility] Comment on above: Performed By: #### 2 01692 ####[facility],[address] [place] [address] Sodium [Moles/Vol] 139 mmol/L Normal 136 - 145 [facility] Comment on above: Performed By: #### 2 64681 ####[facility],[address] [place], [place] [id number] Urea nitrogen [Mass/Vol] 13 mg/dL Normal 7 - 18 [facility] Comment on above: Performed By: #### 2 88095 ####[facility],[address] [place], [place] [id number] CT ABDOMEN/PELVIS WOon 02-10 CT ABDOMEN/PELVIS WO Normal [facility] ED MED ADMINISTRATION DETAIL on 02-10-2025 ED MED ADMINISTRATION DETAIL Normal [facility] ED NURSES CLINICAL NOTEon ED NURSES CLINICAL NOTE Normal [facility] ED ORDER SHEET (CPOE ONLY)on 02-10-2025 ED ORDER SHEET (CPOE ONLY) Normal [facility] ED PHYSICIAN CLINICAL REPORT on 02-10-2025 ED PHYSICIAN CLINICAL REPORT Normal [facility] ED SUPER BILLon 02-10-2025 ED SUPER BILL Normal [facility] ED VISIT SUMMARYon ED VISIT SUMMARY Normal [facility] ED VITALS FLOW SHEETon 02-10 ED VITALS FLOW SHEET Normal [facility] LACTATEon 02-10-2025 Lactate [Moles/Vol] 0.7 mmol/L Normal 0.4 - 2.0 [facility] Comment on above: Performed By: #### 2 64156 ####[facility],[address] [place] [address] 02062 URINALYSISon 02-10-2025 Amorphous NONE Normal [facility] Comment on above: Performed By: #### 2 99396 ####[facility],[address] [place] [address] 36088 Bacteria 3+ Normal [facility] Comment on above: Performed By: #### 2 33949 ####[facility],[address] [place] [address] 05617 Bilirubin Ql (U) Negative Normal NORMAL: NEGATIVE [facility] Comment on above: Performed By: #### 2 79144 ####[facility],[address] [place] [address] 36071 Casts NONE Normal [facility] Comment on above: Performed By: #### 2 16867 ####[facility],[address] [place], [place] [id number] Clarity (U) sl.cloudy Normal NORMAL: CLEAR [facility] Comment on above: Performed By: #### 2 24433 ####[facility],[address] [place] [address] 41313 Color (U) yellow Normal NORMAL: YELLOW [facility] Comment on above: Performed By: #### 2 70083 ####[facility],[address] [place] [address] 17587 Crystals LM Nom (Urine sed) NONE Normal [facility] Comment on above: Performed By: #### 2 99067 ####[facility],[address] [place] [address] 39386 Epi Cells OCC Normal [facility] Comment on above: Performed By: #### 2 40634 ####[facility],[address] [place] [address] 35593 Glucose Ql (U) NORM Normal NORMAL: NORMAL [facility] Comment on above: Performed By: #### 2 09866 ####[facility],[address] [place] [address] 59341 Hemoglobin Ql (U) 250 Abnormal NORMAL: NEGATIVE [facility] Comment on above: Performed By: #### 2 40651 ####[facility],[address] [place] [address] 14304 Ketone Negative Normal NORMAL: NEGATIVE [facility] Comment on above: Performed By: #### 2 81156 ####[facility],[address] [place] [address] 71976 Leukocytes 500 Abnormal NORMAL: NEGATIVE [facility] Comment on above: Performed By: #### 2 56311 ####[facility],[address] [place] [address] Mucous NONE Normal [facility] Comment on above: Performed By: #### 2 10361 ####[facility],[address] [place] [address] 53408 Nitrite Ql (U) Negative Normal NORMAL: NEGATIVE [facility] Comment on above: Performed By: #### 2 06064 ####[facility],[address] [place] [address] 32496 pH (U) 8 [pH] Normal NORMAL: 5.0-8.0 [facility] Comment on above: Performed By: #### 2 96529 ####[facility],[address] [place] [address] 85988 Protein Ql (U) 100 Abnormal NORMAL: NEGATIVE [facility] Comment on above: Performed By: #### 2 28091 ####[facility],[address] [place] [address] 13389 Rbc TNTC Normal 0-3/hpf [facility] Comment on above: Performed By: #### 2 88158 ####[facility],[address] [place] [address] 03629 Sp [place] 1.015 Normal NORMAL: 1.010-1.030 [facility] Comment on above: Performed By: #### 2 63845 ####[facility],[address] [place] [address] Specimen Type R Normal [facility] Comment on above: Performed By: #### 2 12004 ####[facility],[address] [place] [address] Urinalysis dipstick W Reflex Microscopic panel (U) SEE BELOW Normal [facility] Comment on above: Result Comment: MICR OSCOPIC Performed By: #### 2 03735 ####[facility],[address] [place] [address] Urobilinog NORM Normal NORMAL: NORMAL [facility] Comment on above: Performed By: #### 2 97670 ####[facility],[address] [place] [address] WBC (U) [#/Vol] /uL Normal 0-5/hpf [facility] Comment on above: Performed By: #### 2 33447 ####[facility],[address] [place] [address] Yeast NONE Normal [facility] Comment on above: Performed By: #### 2 28330 ####[facility],[address] [place] [address] Amorphous NONE Normal [facility] Comment on above: Performed By: #### 2 97039 ####[facility],[address] [place] [address] Bacteria TRACE Normal [facility] Comment on above: Performed By: #### 2 46445 ####[facility],[address] [place] [address] Bilirubin Ql (U) Negative Normal NORMAL: NEGATIVE [facility] Comment on above: Performed By: #### 2 55547 ####[facility],[address] [place] [address] Casts NONE Normal [facility] Comment on above: Performed By: #### 2 63819 ####[facility],[address] [place] [address] Clarity (U) sl.cloudy Normal NORMAL: CLEAR [facility] Comment on above: Performed By: #### 2 51988 ####[facility],[address] [place] [address] 69488 Color (U) alanna Normal NORMAL: YELLOW [facility] Comment on above: Performed By: #### 2 42324 ####[facility],[address] [place], [place] [phone] Crystals LM Nom (Urine sed) NONE Normal [facility] Comment on above: Performed By: #### 2 56258 ####[facility],[address] [place], [place] [id number] Epi Cells MANY Normal [facility] Comment on above: Performed By: #### 2 77269 ####[facility],[address] [place] [address] 74361 Glucose Ql (U) NORM Normal NORMAL: NORMAL [facility] Comment on above: Performed By: #### 2 72989 ####[facility],[address] [place] [address] 27023 Hemoglobin Ql (U) 25 Abnormal NORMAL: NEGATIVE [facility] Comment on above: Performed By: #### 2 51127 ####[facility],[address] [place] [address] 14440 Ketone Negative Normal NORMAL: NEGATIVE [facility] Comment on above: Performed By: #### 2 54568 ####[facility],[address] [place] [address] 45952 Leukocytes Negative Normal NORMAL: NEGATIVE [facility] Comment on above: Performed By: #### 2 39696 ####[facility],[address] [place] [address] 98640 Mucous NONE Normal [facility] Comment on above: Performed By: #### 2 54387 ####[facility],[address] [place] [address] 69207 Nitrite Ql (U) Negative Normal NORMAL: NEGATIVE [facility] Comment on above: Performed By: #### 2 65678 ####[facility],[address] [place] [address] pH (U) 5 [pH] Normal NORMAL: 5.0-8.0 [facility] Comment on above: Performed By: #### 2 22338 ####[facility],[address] [place] [address] Protein Ql (U) 30 Abnormal NORMAL: NEGATIVE [facility] Comment on above: Performed By: #### 2 01122 ####[facility],[address] [place] [address] Rbc 0-5 Normal 0-3/hpf [facility] Comment on above: Performed By: #### 2 49653 ####[facility],[address] [place] [address] Sp [place] 1.025 Normal NORMAL: 1.010-1.030 [facility] Comment on above: Performed By: #### 2 06853 ####[facility],[address] [place] [address] Specimen Type R Normal [facility] Comment on above: Performed By: #### 2 24585 ####[facility],[address] [place] [address] Urinalysis dipstick W Reflex Microscopic panel (U) SEE BELOW Normal [facility] Comment on above: Result Comment: MICR OSCOPIC Performed By: #### 2 89281 ####[facility],[address] [place] [address] Urobilinog 1 Abnormal NORMAL: NORMAL [facility] Comment on above: Performed By: #### 2 76633 ####[facility],[address] [place] [address] Wbc 1-5 Normal 0-5/hpf [facility] Comment on above: Performed By: #### 2 46586 ####[facility],[address] [place], [place] [address] Yeast NONE Normal [facility] Comment on above: Performed By: #### 2 04075 ####[facility],[address] [place] [address] URINE CULTURE [CCL]on 2024 Bacteria identified Cx Nom (U) Normal [facility] Comment on above: Performed By: #### 2 91252 ####[place] [address] Bacteria identified Cx Nom (U) Normal [facility] Comment on above: Performed By: #### 2 56841 ####[facility],[address] [place] [address] URINE CULTURE [CCL]on 2024 Bacteria identified Cx Nom (U) Normal [facility] Comment on above: Performed By: #### 2 42926 ####[place] [address] CBC + DIFFon 01-29-2025 BANDS 2 % Normal 0 - 5 [facility] Comment on above: Performed By: #### 2 50085 ####[place] [address] Baso # 0.04 x10EE3/UL Normal 0.00 - 0.10 [facility] Comment on above: Performed By: #### 2 15749 ####[facility],[address] [place] [address] Basophils/100 WBC (Bld) 0.2 % Normal 0.0 - 2.0 [facility] Comment on above: Performed By: #### 2 07195 ####[place] [address] CBC + DIFF Normal [facility] Comment on above: Result Comment: CBC- COMPLETE BLOOD COUNT Performed By: #### 2 79673 ####[place] [address] EO # 0.12 x10EE3/UL Normal 0.00 - 0.50 [facility] Comment on above: Performed By: #### 2 66754 ####[facility],[address] [place] [address] 40912 Eosinophils/100 WBC (Bld) 0.7 % Normal 0.0 - 7.0 [facility] Comment on above: Performed By: #### 2 48034 ####[facility],[address] [place] [address] 58619 Erythrocyte distribution width (RBC) [Ratio] 13.6 % Normal 12.0 - 15.6 [facility] Comment on above: Performed By: #### 2 35092 ####[facility],[address] [place] [address] 42720 Hematocrit (Bld) [Volume fraction] 43.6 % Normal 34.0 - 46.0 [facility] Comment on above: Performed By: #### 2 12021 ####[facility],[address] [place] [address] 25429 Hemoglobin (Bld) [Mass/Vol] 15.2 g/dL Normal 12.0 - 16.0 [facility] Comment on above: Performed By: #### 2 88821 ####[facility],[address] [place] [address] 59289 Lymph # 0.83 x10EE3/UL Normal 0.80 - 2.80 [facility] Comment on above: Performed By: #### 2 56315 ####[facility],[address] [place] [address] 08617 Lymphocytes/100 WBC (Bld) 4.8 % Low 20.0 - 45.0 [facility] Comment on above: Performed By: #### 2 81429 ####[facility],[address] [place] [address] 85847 Lymphocytes/100 WBC (Bld) 4 % Low 20 - 45 [facility] Comment on above: Performed By: #### 2 88214 ####[facility],[address] [place] [address] MANUAL DIFF SEE BELOW Normal [facility] Comment on above: Performed By: #### 2 90821 ####[facility],[address] [place] [address] MCH (RBC) [Entitic mass] 34 pg High 27 - 33 [facility] Comment on above: Performed By: #### 2 85381 ####[facility],[address] [place] [address] MCHC 35 X10 3 Normal 32 - 36 [facility] Comment on above: Performed By: #### 2 80393 ####[facility],[address] [place] [address] MCV (RBC) [Entitic vol] 98 fL Normal 80 - 99 J l [facility] Comment on above: Performed By: #### 2 44231 ####[facility],[address] [place] [address] [place] # 1.74 x10EE3/UL High 0.20 - 1.00 [facility] Comment on above: Performed By: #### 2 86006 ####[facility],[address] [place] [address] MONOS 11 % High 0 - 10 [facility] Comment on above: Performed By: #### 2 64790 ####[facility],[address] [place] [address] MONOS % 10.0 % Normal 0.0 - 10.0 [facility] Comment on above: Performed By: #### 2 50989 ####[facility],[address] [place] [address] Morphology Efra (Bld) [Interp] REVIEWED Normal [facility] Comment on above: Performed By: #### 2 63090 ####[facility],[address] [place] [address] Neut # 14.65 x10EE3/UL High 1.50 - 7.10 [facility] Comment on above: Performed By: #### 2 12289 ####[facility],[address] [place] [address] 57515 Neutrophils/100 WBC (Bld) 84.3 % High 46.0 - 76.0 [facility] Comment on above: Performed By: #### 2 56688 ####[facility],[address] [place] [address] 24043 PLATELET 437 x10EE3/UL Normal 150 - 450 [facility] Comment on above: Performed By: #### 2 20351 ####[facility],[address] [place] [address] 85033 Platelet mean volume (Bld) [Entitic vol] 8.2 fL Normal 6.6 - 10.5 [facility] Comment on above: Result Comment: AUTO MATED DIFFERENTIAL Performed By: #### 2 32049 ####[facility],[address] [place] [address] 77370 RBC 4.47 x 10EE6/UL Normal 4.10 - 5.30 [facility] Comment on above: Performed By: #### 2 94636 ####[facility],[address] [place] [address] 11206 SEGS 83 % High 46 - 76 [facility] Comment on above: Performed By: #### 2 83409 ####[facility],[address] [place] [address] 90382 WBC 17.4 x 10EE3/UL High 4.5 - 10.8 [facility] Comment on above: Performed By: #### 2 09552 ####[address] [address] CMP with eGFRon 01-29-2025 AGE 34 years Normal [facility] Comment on above: Performed By: #### 2 49322 ####[address] [address] Albumin [Mass/Vol] 4.1 g/dL Normal 3.4 - 5.0 [facility] Comment on above: Performed By: #### 2 33897 ####[facility],[address] [place] [address] 18036 Albumin/Globulin [Mass ratio] 1.4 {ratio} Normal 0.9 - 1.6 [facility] Comment on above: Performed By: #### 2 15418 ####[facility],[address] [place] [address] 69103 ALK PHOS 91 U/L Normal 46 - 116 [facility] Comment on above: Performed By: #### 2 01375 ####[facility],[address] [place] [address] 68188 ALT [Catalytic activity/Vol] 19 U/L Normal 16 - 63 [facility] Comment on above: Performed By: #### 2 66547 ####[facility],[address] [place] [address] 96591 Anion gap [Moles/Vol] 15 mmol/L Normal 10 - 20 [facility] Comment on above: Performed By: #### 2 28116 ####[facility],[address] [place] [address] 88168 AST [Catalytic activity/Vol] 14 U/L Normal 13 - 39 [facility] Comment on above: Performed By: #### 2 48698 ####[facility],[address] [place] [address] 70021 B/C RATIO 10 ratio Normal 0 - 30 [facility] Comment on above: Performed By: #### 2 64511 ####[facility],[address] [place] [address] 78439 Bilirubin [Mass/Vol] 0.4 mg/dL Normal 0.2 - 1.0 [facility] Comment on above: Performed By: #### 2 58659 ####[facility],[address] [place] [address] 48567 Calcium [Mass/Vol] 9.4 mg/dL Normal 8.5 - 10.1 [facility] Comment on above: Performed By: #### 2 90546 ####[facility],[address] [place] [address] 18692 Chloride [Moles/Vol] 106 mmol/L Normal 98 - 107 [facility] Comment on above: Performed By: #### 2 12954 ####[facility],[address] [place] [address] 50376 CMP with eGFR Normal [facility] Comment on above: Result Comment: COMP REHENSIVE METABOLIC PANEL Performed By: #### 2 21241 ####[facility],[address] [place], [place] [id number] CO2 [Moles/Vol] 24.0 mmol/L Normal 21.0 - 32.0 [facility] Comment on above: Performed By: #### 2 49961 ####[facility],[address] [place], [place] [address] Creatinine [Mass/Vol] 1.01 mg/dL Normal 0.55 - 1.02 [facility] Comment on above: Performed By: #### 2 02590 ####[facility],[address] [place] [address] 62602 GFR/1.73 sq M.predicted among non-blacks MDRD (S/P/Bld) [Vol rate/Area] mL/min/{1.73_m2} Normal 60 - 999 [facility] Comment on above: Performed By: #### 2 93906 ####[facility],[address] [place], [place] [address] Result Comment: ACCO RDING TO THE NATIONAL KIDNEY DISEASE EDUCATION PROGRAM(NKDE), A NORMAL eGFRIS A VALUE GREATER THAN OR EQUAL TO 60 ML/MIN/1.73 SQ METERS.CHRONIC KIDNEY DISEASE: <60mL/MIN/1.73 SQ METERSKIDNEY FAILURE: <15mL/MIN/1.73 SQ METERSTHIS TEST SHOULD ONLY BE USED FOR PATIENTS 18 YEARS OF AGE AND OLDER. Globulin (S) [Mass/Vol] 3.0 g/dL Normal 1.5 - 3.8 [facility] Comment on above: Performed By: #### 2 82526 ####[facility],[address] [place] [address] 14644 Glucose [Mass/Vol] 166 mg/dL High 74 - 106 [facility] Comment on above: Performed By: #### 2 20979 ####[facility],[address] [place] [address] 93179 Potassium [Moles/Vol] 3.3 mmol/L Low 3.5 - 5.1 [facility] Comment on above: Performed By: #### 2 71504 ####[facility],[address] [place] [address] 86026 Protein [Mass/Vol] 7.1 g/dL Normal 6.4 - 8.2 [facility] Comment on above: Performed By: #### 2 71239 ####[facility],[address] [place] [address] 14963 Sodium [Moles/Vol] 142 mmol/L Normal 136 - 145 [facility] Comment on above: Performed By: #### 2 43231 ####[facility],[address] [place] [address] 53671 Urea nitrogen [Mass/Vol] 10 mg/dL Normal 7 - 18 [facility] Comment on above: Performed By: #### 2 30603 ####[facility],[address] [place] [address] 83905 ED MED ADMINISTRATION DETAIL on 01-29-2025 ED MED ADMINISTRATION DETAIL Normal [facility] ED NURSES CLINICAL NOTEon ED NURSES CLINICAL NOTE Normal [facility] ED ORDER SHEET (CPOE ONLY)on 01-29-2025 ED ORDER SHEET (CPOE ONLY) Normal [facility] ED PHYSICIAN CLINICAL REPORT on 01-29-2025 ED PHYSICIAN CLINICAL REPORT Normal [facility] ED PHYSICIAN DISCHARGE REPOR Ton 01-29-2025 ED PHYSICIAN DISCHARGE REPORT Normal [facility] ED SUPER BILLon 01-29-2025 ED SUPER BILL Normal [facility] ED VISIT SUMMARYon ED VISIT SUMMARY Normal [facility] ED VITALS FLOW SHEETon 01-29 ED VITALS FLOW SHEET Normal [facility] SERUM QUALon 01-29 EXTERNAL QC DONE? YES Normal [facility] Comment on above: Performed By: #### 2 46314 ####[facility],[address] [place] [address] INTERNAL QC PASS Normal [facility] Comment on above: Performed By: #### 2 96816 ####[facility],[address] [place], [place] [id number] SER Negative Normal NEGATIVE [facility] Comment on above: Performed By: #### 2 07574 ####[facility],[address] [place], [place] [id number] URINALYSISon 01-29-2025 Amorphous NONE Normal [facility] Comment on above: Performed By: #### 2 84244 ####[facility],[address] [place], [place] [phone] Bacteria TRACE Normal [facility] Comment on above: Performed By: #### 2 04771 ####[facility],[address] [place] [address] 54327 Bilirubin Ql (U) Negative Normal NORMAL: NEGATIVE [facility] Comment on above: Performed By: #### 2 93952 ####[facility],[address] [place], [place] [id number] Casts NONE Normal [facility] Comment on above: Performed By: #### 2 58905 ####[facility],[address] [place] [address] 44226 Clarity (U) SL. CLOUDY Abnormal NORMAL: CLEAR [facility] Comment on above: Performed By: #### 2 28824 ####[facility],[address] [place] [address] 89276 Color (U) p.yel Normal NORMAL: YELLOW [facility] Comment on above: Performed By: #### 2 39591 ####[facility],[address] [place] [address] 60966 Crystals LM Nom (Urine sed) NONE Normal [facility] Comment on above: Performed By: #### 2 90435 ####[facility],[address] [place] [address] 82246 Epi Cells NONE Normal [facility] Comment on above: Performed By: #### 2 25945 ####[facility],[address] [place] [address] 39402 Glucose Ql (U) NORM Normal NORMAL: NORMAL [facility] Comment on above: Performed By: #### 2 19595 ####[facility],[address] [place], [place] [phone] Hemoglobin Ql (U) 150 Abnormal NORMAL: NEGATIVE [facility] Comment on above: Performed By: #### 2 31938 ####[facility],[address] [place] [address] 14440 Ketone Negative Normal NORMAL: NEGATIVE [facility] Comment on above: Performed By: #### 2 76665 ####[facility],[address] [place] [address] 07223 Leukocytes 500 Abnormal NORMAL: NEGATIVE [facility] Comment on above: Performed By: #### 2 78768 ####[facility],[address] [place] [address] 82631 Mucous NONE Normal [facility] Comment on above: Performed By: #### 2 88539 ####[facility],[address] [place] [address] 67200 Nitrite Ql (U) Negative Normal NORMAL: NEGATIVE [facility] Comment on above: Performed By: #### 2 07733 ####[facility],[address] [place] [address] pH (U) 7 [pH] Normal NORMAL: 5.0-8.0 [facility] Comment on above: Performed By: #### 2 01063 ####[facility],[address] [place] [address] Protein Ql (U) 15 Abnormal NORMAL: NEGATIVE [facility] Comment on above: Performed By: #### 2 36122 ####[facility],[address] [place] [address] Rbc 5-10 Normal 0-3/hpf [facility] Comment on above: Performed By: #### 2 74712 ####[facility],[address] [place] [address] Sp [place] 1.010 Normal NORMAL: 1.010-1.030 [facility] Comment on above: Performed By: #### 2 67417 ####[facility],[address] [place] [address] Specimen Type R Normal [facility] Comment on above: Performed By: #### 2 19105 ####[facility],[address] [place] [address] Urinalysis dipstick W Reflex Microscopic panel (U) SEE BELOW Normal [facility] Comment on above: Result Comment: MICR OSCOPIC Performed By: #### 2 13685 ####[facility],[address] [place] [address] Urobilinog NORM Normal NORMAL: NORMAL [facility] Comment on above: Performed By: #### 2 71296 ####[facility],[address] [place] [address] Wbc 16-25 Normal 0-5/hpf [facility] Comment on above: Performed By: #### 2 64551 ####[facility],[address] [place] [address] Yeast 1+ Normal [facility] Comment on above: Performed By: #### 2 66275 ####[facility],[address] [place] [address] 66271 CBC + DIFFon 01-21-2025 Baso # 0.03 x10EE3/UL Normal 0.00 - 0.10 [facility] Comment on above: Performed By: #### 2 53683 ####[facility],[address] [place] [address] 91402 Basophils/100 WBC (Bld) 0.3 % Normal 0.0 - 2.0 [facility] Comment on above: Performed By: #### 2 45931 ####[facility],[address] [place] [address] CBC + DIFF Normal [facility] Comment on above: Result Comment: CBC- COMPLETE BLOOD COUNT Performed By: #### 2 41157 ####[address] [address] EO # 0.06 x10EE3/UL Normal 0.00 - 0.50 [facility] Comment on above: Performed By: #### 2 67895 ####[facility],[address] [place] [address] 15558 Eosinophils/100 WBC (Bld) 0.5 % Normal 0.0 - 7.0 [facility] Comment on above: Performed By: #### 2 49466 ####[facility],[address] [place], [place] [id number] Erythrocyte distribution width (RBC) [Ratio] 13.7 % Normal 12.0 - 15.6 [facility] Comment on above: Performed By: #### 2 31157 ####[facility],[address] [place] [address] 23454 Hematocrit (Bld) [Volume fraction] 43.1 % Normal 34.0 - 46.0 [facility] Comment on above: Performed By: #### 2 46738 ####[facility],[address] [place] [address] 55330 Hemoglobin (Bld) [Mass/Vol] 14.8 g/dL Normal 12.0 - 16.0 [facility] Comment on above: Performed By: #### 2 55362 ####[facility],[address] [place] [address] Lymph # 1.74 x10EE3/UL Normal 0.80 - 2.80 [facility] Comment on above: Performed By: #### 2 59116 ####[facility],[address] [place] [address] Lymphocytes/100 WBC (Bld) 12.8 % Low 20.0 - 45.0 [facility] Comment on above: Performed By: #### 2 04008 ####[facility],[address] [place] [address] MANUAL DIFF N/A Normal [facility] Comment on above: Performed By: #### 2 98972 ####[facility],[address] [place] [address] MCH (RBC) [Entitic mass] 34 pg High 27 - 33 [facility] Comment on above: Performed By: #### 2 24778 ####[place] [address] MCHC 34 X10 3 Normal 32 - 36 [facility] Comment on above: Performed By: #### 2 65993 ####[facility],[address] [place] [address] MCV (RBC) [Entitic vol] 97 fL Normal 80 - 99 [facility] Comment on above: Performed By: #### 2 09142 ####[facility],[address] [place] [address] [place] # 1.16 x10EE3/UL High 0.20 - 1.00 [facility] Comment on above: Performed By: #### 2 90598 ####[facility],[address] [place] [address] MONOS % 8.6 % Normal 0.0 - 10.0 [facility] Comment on above: Performed By: #### 2 70587 ####[facility],[address] [place] [address] 90011 Morphology Efra (Bld) [Interp] N/A Normal [facility] Comment on above: Performed By: #### 2 87359 ####[facility],[address] [place] [address] 55939 Neut # 10.59 x10EE3/UL High 1.50 - 7.10 [facility] Comment on above: Performed By: #### 2 29978 ####[place] [address] Neutrophils/100 WBC (Bld) 78.0 % High 46.0 - 76.0 [facility] Comment on above: Performed By: #### 2 42304 ####[place] [address] PLATELET 385 x10EE3/UL Normal 150 - 450 [facility] Comment on above: Performed By: #### 2 43915 ####[place] [address] Platelet mean volume (Bld) [Entitic vol] 7.3 fL Normal 6.6 - 10.5 [facility] Comment on above: Result Comment: AUTO MATED DIFFERENTIAL Performed By: #### 2 12988 ####[place] [id number] RBC 4.43 x 10EE6/UL Normal 4.10 - 5.30 [facility] Comment on above: Performed By: #### 2 87718 ####[address] [address] WBC 13.6 x 10EE3/UL High 4.5 - 10.8 [facility] Comment on above: Performed By: #### 2 48349 ####[facility],[address] [place] [address] CMP with eGFRon 03-21-2025 AGE 34 years Normal [facility] Comment on above: Performed By: #### 2 28771 ####[facility],[address] [place] [address] 98475 Albumin [Mass/Vol] 4.1 g/dL Normal 3.4 - 5.0 [facility] Comment on above: Performed By: #### 2 44551 ####[facility],[address] [place] [address] 84189 Albumin/Globulin [Mass ratio] 1.2 {ratio} Normal 0.9 - 1.6 [facility] Comment on above: Performed By: #### 2 17241 ####[facility],[address] [place] [address] 73481 ALK PHOS 77 U/L Normal 46 - 116 [facility] Comment on above: Performed By: #### 2 71772 ####[facility],[address] [place] [address] 27234 ALT [Catalytic activity/Vol] 13 U/L Low 16 - 63 [facility] Comment on above: Performed By: #### 2 36113 ####[facility],[address] [place] [address] 06975 Anion gap [Moles/Vol] 16 mmol/L Normal 10 - 20 [facility] Comment on above: Performed By: #### 2 93841 ####[facility],[address] [place] [address] 17995 AST [Catalytic activity/Vol] 13 U/L Normal 13 - 39 [facility] Comment on above: Performed By: #### 2 63769 ####[facility],[address] [place] [address] 20834 B/C RATIO 15 ratio Normal 0 - 30 [facility] Comment on above: Performed By: #### 2 78021 ####[facility],[address] [place] [address] 66823 Bilirubin [Mass/Vol] 0.4 mg/dL Normal 0.2 - 1.0 [facility] Comment on above: Performed By: #### 2 50113 ####[facility],[address] [place] [address] 87489 Calcium [Mass/Vol] 9.2 mg/dL Normal 8.5 - 10.1 [facility] Comment on above: Performed By: #### 2 14055 ####[facility],[address] [place] [address] 38207 Chloride [Moles/Vol] 103 mmol/L Normal 98 - 107 [facility] Comment on above: Performed By: #### 2 93661 ####[facility],[address] [place], [place] [id number] CMP with eGFR Normal [facility] Comment on above: Result Comment: COMP REHENSIVE METABOLIC PANEL Performed By: #### 2 93068 ####[facility],[address] [place] [address] 96515 CO2 [Moles/Vol] 23.4 mmol/L Normal 21.0 - 32.0 [facility] Comment on above: Performed By: #### 2 54243 ####[facility],[address] [place] [address] 74659 Creatinine [Mass/Vol] 0.87 mg/dL Normal 0.55 - 1.02 [facility] Comment on above: Performed By: #### 2 06021 ####[facility],[address] [place] [address] 64541 GFR/1.73 sq M.predicted among non-blacks MDRD (S/P/Bld) [Vol rate/Area] mL/min/{1.73_m2} Normal 60 - 999 [facility] Comment on above: Performed By: #### 2 68254 ####[facility],[address] [place] [address] 78688 Result Comment: ACCO RDING TO THE NATIONAL KIDNEY DISEASE EDUCATION PROGRAM(NKDE), A NORMAL eGFRIS A VALUE GREATER THAN OR EQUAL TO 60 ML/MIN/1.73 SQ METERS.CHRONIC KIDNEY DISEASE: <60mL/MIN/1.73 SQ METERSKIDNEY FAILURE: <15mL/MIN/1.73 SQ METERSTHIS TEST SHOULD ONLY BE USED FOR PATIENTS 18 YEARS OF AGE AND OLDER. Globulin (S) [Mass/Vol] 3.4 g/dL Normal 1.5 - 3.8 [facility] Comment on above: Performed By: #### 2 26590 ####[facility],[address] [place] [address] 96495 Glucose [Mass/Vol] 108 mg/dL High 74 - 106 [facility] Comment on above: Performed By: #### 2 86812 ####[facility],[address] [place] [address] 86802 Potassium [Moles/Vol] 3.2 mmol/L Low 3.5 - 5.1 [facility] Comment on above: Performed By: #### 2 60460 ####[facility],[address] [place] [address] 41387 Protein [Mass/Vol] 7.5 g/dL Normal 6.4 - 8.2 [facility] Comment on above: Performed By: #### 2 13905 ####[facility],[address] [place] [address] 04664 Sodium [Moles/Vol] 139 mmol/L Normal 136 - 145 [facility] Comment on above: Performed By: #### 2 32432 ####[facility],[address] [place] [address] 17815 Urea nitrogen [Mass/Vol] 13 mg/dL Normal 7 - 18 [facility] Comment on above: Performed By: #### 2 11801 ####[facility],[address] [place] [address] 24625 CORONAVIRUS (SARS) ANTIGEN T ESTon 01-21-2025 EXTERNAL QC DONE? YES Normal [facility] Comment on above: Performed By: #### 2 88841 ####[facility],[address] [place] [address] 47910 INTERNAL CONTROL PASS Normal [facility] Comment on above: Performed By: #### 2 06545 ####[facility],[address] [place] [address] 02794 SARS ANTIGEN Negative Normal NORMAL: NEGATIVE [facility] Comment on above: Performed By: #### 2 24682 ####[facility],[address] [place] [address] 33029 SEND TO IC? NO Normal [facility] Comment on above: Result Comment: SARS -CoV-2THIS TEST IS BEING USED UNDER THE FDA EUA PROCEDURE. THIS ASSAY HAS BEENVALIDATED AT [facility] FOR USE WITH NASAL AND NASOPHARYNGEAL [...] BECONSIDERED BY HEALTHCARE PROVIDERS IN CONSULTATION WITH [facility]. Performed By: #### 2 92526 ####[facility],[address] [place], [place] [id number] ED MED ADMINISTRATION DETAIL on 01-21-2025 ED MED ADMINISTRATION DETAIL Normal [facility] ED NURSES CLINICAL NOTEon ED NURSES CLINICAL NOTE Normal [facility] ED ORDER SHEET (CPOE ONLY)on 01-21-2025 ED ORDER SHEET (CPOE ONLY) Normal [facility] ED PHYSICIAN CLINICAL REPORT on 01-21-2025 ED PHYSICIAN CLINICAL REPORT Normal [facility] ED PHYSICIAN DISCHARGE REPOR Ton 01-21-2025 ED PHYSICIAN DISCHARGE REPORT Normal [facility] ED SUPER BILLon 01-21-2025 ED SUPER BILL Normal [facility] ED VISIT SUMMARYon ED VISIT SUMMARY Normal [facility] ED VITALS FLOW SHEETon 01-21 ED VITALS FLOW SHEET Normal [facility] INFLUENZA VIRUS RAPID A/Bon 01-21-2025 INFLUENZA VIRUS RAPID A/B Normal [facility] Comment on above: Performed By: #### 2 77835 ####[facility],[address] [place], [place] [id number] LACTATEon 01-21-2025 Lactate [Moles/Vol] 1.0 mmol/L Normal 0.4 - 2.0 [facility] Comment on above: Performed By: #### 2 59681 ####[facility],[address] [place] [address] 32543 LIPASEon 01-21-2025 Lipase [Catalytic activity/Vol] 10.0 U/L Low 15.0 - 78.0 [facility] Comment on above: Result Comment: *PLE ASE NOTE THAT RANGES FOR LIPASE HAVE CHANGED OF 10/31/23 DUE TO AN ASSAYUPDATE BY THE PLC ENGINEER.THE NEW ASSAY RANGE IS 6-250 U/L, WITH A REFERENCERANGE OF 16-77 U/L. Performed By: #### 2 32043 ####[facility],[address] [place] [address] SERUM QUALon 01-21 EXTERNAL QC DONE? YES Normal [facility] Comment on above: Performed By: #### 2 55484 ####[facility],[address] [place] [address] INTERNAL QC PASS Normal [facility] Comment on above: Performed By: #### 2 86745 ####[facility],[address] [place] [address] SER Negative Normal NEGATIVE [facility] Comment on above: Performed By: #### 2 93257 ####[facility],[address] [place] [address] IR NEPHROSTOMY EXCHANGEon IR NEPHROSTOMY EXCHANGE Normal [facility] IR PORT REMOVALon 12-22-2024 IR PORT REMOVAL Normal [facility] LABORATORYOrdered By: Nell Gillespie on 12-22-2024 Beta HCG ( test) Ql (U) Negative (12/22/24 10:06 AM) [facility] Work Phone: ED MED ADMINISTRATION DETAIL on 12-11-2024 ED MED ADMINISTRATION DETAIL Normal [facility] ED NURSES CLINICAL NOTEon ED NURSES CLINICAL NOTE Normal [facility] ED ORDER SHEET (CPOE ONLY)on 12-11-2024 ED ORDER SHEET (CPOE ONLY) Normal [facility] ED PHYSICIAN CLINICAL REPORT on 12-11-2024 ED PHYSICIAN CLINICAL REPORT Normal [facility] ED PHYSICIAN DISCHARGE REPOR Ton 12-11-2024 ED PHYSICIAN DISCHARGE REPORT Normal [facility] ED SUPER BILLon 12-11-2024 ED SUPER BILL Normal [facility] ED VISIT SUMMARYon ED VISIT SUMMARY Normal [facility] ED VITALS FLOW SHEETon 12-11 ED VITALS FLOW SHEET Normal [facility] CBC + DIFFon 12-10-2024 Baso # 0.04 x10EE3/UL Normal 0.00 - 0.10 [facility] Comment on above: Performed By: #### 2 96791 ####[facility],[address] [place] [address] 41237 Basophils/100 WBC (Bld) 0.3 % Normal 0.0 - 2.0 [facility] Comment on above: Performed By: #### 2 28682 ####[facility],[address] [place] [address] CBC + DIFF Normal [facility] Comment on above: Result Comment: CBC- COMPLETE BLOOD COUNT Performed By: #### 2 70496 ####[facility],[address] [place] [address] EO # 0.18 x10EE3/UL Normal 0.00 - 0.50 [facility] Comment on above: Performed By: #### 2 29447 ####[facility],[address] [place] [address] 82088 Eosinophils/100 WBC (Bld) 1.6 % Normal 0.0 - 7.0 [facility] Comment on above: Performed By: #### 2 24119 ####[facility],[address] [place], [place] [phone] Erythrocyte distribution width (RBC) [Ratio] 14.4 % Normal 12.0 - 15.6 [facility] Comment on above: Performed By: #### 2 93476 ####[facility],[address] [place] [address] Hematocrit (Bld) [Volume fraction] 42.6 % Normal 34.0 - 46.0 [facility] Comment on above: Performed By: #### 2 06438 ####[facility],[address] [place] [address] 52367 Hemoglobin (Bld) [Mass/Vol] 14.4 g/dL Normal 12.0 - 16.0 [facility] Comment on above: Performed By: #### 2 83630 ####[facility],[address] [place] [address] 44662 Lymph # 1.79 x10EE3/UL Normal 0.80 - 2.80 [facility] Comment on above: Performed By: #### 2 24251 ####[facility],[address] [place] [address] 25345 Lymphocytes/100 WBC (Bld) 15.3 % Low 20.0 - 45.0 [facility] Comment on above: Performed By: #### 2 97440 ####[facility],[address] [place] [address] MANUAL DIFF N/A Normal [facility] Comment on above: Performed By: #### 2 67200 ####[facility],[address] [place], [place] [phone] MCH (RBC) [Entitic mass] 33 pg Normal 27 - 33 [facility] Comment on above: Performed By: #### 2 81285 ####[facility],[address] [place] [address] 93534 MCHC 34 X10 3 Normal 32 - 36 [facility] Comment on above: Performed By: #### 2 93652 ####[facility],[address] [place] [address] 88724 MCV (RBC) [Entitic vol] 98 fL Normal 80 - 99 [facility] Comment on above: Performed By: #### 2 02891 ####[facility],[address] [place] [address] 78046 [place] # 0.96 x10EE3/UL Normal 0.20 - 1.00 [facility] Comment on above: Performed By: #### 2 27143 ####[facility],[address] [place] [address] 53044 MONOS % 8.2 % Normal 0.0 - 10.0 [facility] Comment on above: Performed By: #### 2 27339 ####[facility],[address] [place] [address] 74513 Morphology Efra (Bld) [Interp] N/A Normal [facility] Comment on above: Performed By: #### 2 48775 ####[facility],[address] [place] [address] 14320 Neut # 8.76 x10EE3/UL High 1.50 - 7.10 [facility] Comment on above: Performed By: #### 2 70510 ####[facility],[address] [place] [address] 27817 Neutrophils/100 WBC (Bld) 74.6 % Normal 46.0 - 76.0 [facility] Comment on above: Performed By: #### 2 11865 ####[facility],[address] [place] [address] 52481 PLATELET 444 x10EE3/UL Normal 150 - 450 [facility] Comment on above: Performed By: #### 2 08735 ####[facility],[address] [place] [address] 17382 Platelet mean volume (Bld) [Entitic vol] 7.1 fL Normal 6.6 - 10.5 [facility] Comment on above: Result Comment: AUTO MATED DIFFERENTIAL Performed By: #### 2 89236 ####[facility],[address] [place] [address] 38178 RBC 4.35 x 10EE6/UL Normal 4.10 - 5.30 [facility] Comment on above: Performed By: #### 2 78480 ####[facility],[address] [place] [address] 73602 WBC 11.7 x 10EE3/UL High 4.5 - 10.8 [facility] Comment on above: Performed By: #### 2 07136 ####[facility],[address] [place] [address] 88600 CMP with eGFRon 12-10-2024 AGE 33 years Normal [facility] Comment on above: Performed By: #### 2 51355 ####[facility],[address] [place] [address] 10729 Albumin [Mass/Vol] 4.2 g/dL Normal 3.4 - 5.0 [facility] Comment on above: Performed By: #### 2 62153 ####[facility],[address] [place] [address] 42637 Albumin/Globulin [Mass ratio] 1.3 {ratio} Normal 0.9 - 1.6 [facility] Comment on above: Performed By: #### 2 08556 ####[facility],[address] [place] [address] 65880 ALK PHOS 82 U/L Normal 46 - 116 [facility] Comment on above: Performed By: #### 2 80797 ####[facility],[address] [place] [address] 15983 ALT [Catalytic activity/Vol] 12 U/L Low 16 - 63 [facility] Comment on above: Performed By: #### 2 47676 ####[facility],[address] [place] [address] 52862 Anion gap [Moles/Vol] 14 mmol/L Normal 10 - 20 [facility] Comment on above: Performed By: #### 2 96347 ####[facility],[address] [place] [address] 87182 AST [Catalytic activity/Vol] 14 U/L Normal 13 - 39 [facility] Comment on above: Performed By: #### 2 59358 ####[facility],[address] [place] [address] 10613 B/C RATIO 11 ratio Normal 0 - 30 [facility] Comment on above: Performed By: #### 2 38320 ####[facility],[address] [place] [address] 68217 Bilirubin [Mass/Vol] 0.4 mg/dL Normal 0.2 - 1.0 [facility] Comment on above: Performed By: #### 2 27696 ####[facility],[address] [place] [address] 40785 Calcium [Mass/Vol] 9.1 mg/dL Normal 8.5 - 10.1 [facility] Comment on above: Performed By: #### 2 05790 ####[facility],[address] [place] [address] 21008 Chloride [Moles/Vol] 102 mmol/L Normal 98 - 107 [facility] Comment on above: Performed By: #### 2 43009 ####[facility],[address] [place] [address] 15868 CMP with eGFR Normal [facility] Comment on above: Result Comment: COMP REHENSIVE METABOLIC PANEL Performed By: #### 2 32647 ####[facility],[address] [place] [address] 53267 CO2 [Moles/Vol] 28.0 mmol/L Normal 21.0 - 32.0 [facility] Comment on above: Performed By: #### 2 91604 ####[facility],[address] [place] [address] 23968 Creatinine [Mass/Vol] 1.09 mg/dL High 0.55 - 1.02 [facility] Comment on above: Performed By: #### 2 49774 ####[facility],[address] [place] [address] 06235 eGFR 57 ML/MINUTE Low 60 - 999 [facility] Comment on above: Performed By: #### 2 76378 ####[facility],[address] [place] [address] 66274 GFR/1.73 sq M.predicted among non-blacks MDRD (S/P/Bld) [Vol rate/Area] mL/min/{1.73_m2} Normal 60 - 999 [facility] Comment on above: Result Comment: ACCO RDING TO THE NATIONAL KIDNEY DISEASE EDUCATION PROGRAM(NKDE), A NORMAL eGFRIS A VALUE GREATER THAN OR EQUAL TO 60 ML/MIN/1.73 SQ METERS.CHRONIC KIDNEY DISEASE: <60mL/MIN/1.73 SQ METERSKIDNEY FAILURE: <15mL/MIN/1.73 SQ METERSTHIS TEST SHOULD ONLY BE USED FOR PATIENTS 18 YEARS OF AGE AND OLDER. Performed By: #### 2 05671 ####[facility],[address] [place] [address] 74734 Globulin (S) [Mass/Vol] 3.2 g/dL Normal 1.5 - 3.8 [facility] Comment on above: Performed By: #### 2 07509 ####[facility],[address] [place] [address] 62183 Glucose [Mass/Vol] 91 mg/dL Normal 74 - 106 [facility] Comment on above: Performed By: #### 2 18729 ####[address] [address] Potassium [Moles/Vol] 3.7 mmol/L Normal 3.5 - 5.1 [facility] Comment on above: Performed By: #### 2 85335 ####[address] [address]333 Protein [Mass/Vol] 7.4 g/dL Normal 6.4 - 8.2 [facility] Comment on above: Performed By: #### 2 18825 ####[address] [address] Sodium [Moles/Vol] 140 mmol/L Normal 136 - 145 [facility] Comment on above: Performed By: #### 2 85010 ####[address] [address] Urea nitrogen [Mass/Vol] 12 mg/dL Normal 7 - 18 [facility] Comment on above: Performed By: #### 2 46687 ####[address] [address]2869 CPKon 12-10-2024 CPK 86 U/L Normal 26 - 192 [facility] Comment on above: Performed By: #### 2 83398 ####[facility],[address] [place], [place] [id number] CT ABDOMEN/PELVIS Won 2024 CT ABDOMEN/PELVIS W Normal [facility] SERUM QUALon 12-10 EXTERNAL QC DONE? YES Normal [facility] Comment on above: Performed By: #### 2 24211 ####[facility],[address] [place] [address] INTERNAL QC PASS Normal [facility] Comment on above: Performed By: #### 2 69763 ####[facility],[address] [place] [address] SER Negative Normal NEGATIVE [facility] Comment on above: Performed By: #### 2 43291 ####[facility],[address] [place], [place] [id number] URINALYSISon 12-10-2024 Bilirubin Ql (U) Negative Normal NORMAL: NEGATIVE [facility] Comment on above: Performed By: #### 2 34788 ####[facility],[address] [place] [address] 32612 Clarity (U) clear Normal NORMAL: CLEAR [facility] Comment on above: Performed By: #### 2 39381 ####[facility],[address] [place] [address] 07779 Color (U) yellow Normal NORMAL: YELLOW [facility] Comment on above: Performed By: #### 2 32871 ####[facility],[address] [place] [address] 80222 Glucose Ql (U) NORM Normal NORMAL: NORMAL [facility] Comment on above: Performed By: #### 2 35202 ####[facility],[address] [place] [address] 70858 Hemoglobin Ql (U) Negative Normal NORMAL: NEGATIVE [facility] Comment on above: Performed By: #### 2 94108 ####[facility],[address] [place] [address] 25542 Ketone Negative Normal NORMAL: NEGATIVE [facility] Comment on above: Performed By: #### 2 99955 ####[facility],[address] [place] [address] 08463 Leukocytes Negative Normal NORMAL: NEGATIVE [facility] Comment on above: Performed By: #### 2 20572 ####[facility],[address] [place] [address] Nitrite Ql (U) Negative Normal NORMAL: NEGATIVE [facility] Comment on above: Performed By: #### 2 60937 ####[facility],[address] [place] [address] pH (U) 7 [pH] Normal NORMAL: 5.0-8.0 [facility] Comment on above: Performed By: #### 2 14576 ####[facility],[address] [place] [address] Protein Ql (U) Negative Normal NORMAL: NEGATIVE [facility] Comment on above: Performed By: #### 2 98018 ####[facility],[address] [place] [address] Sp Harbeson 1.015 Normal NORMAL: 1.010-1.030 [facility] Comment on above: Performed By: #### 2 17910 ####[facility],[address] [place] [address] Specimen Type R Normal [facility] Comment on above: Performed By: #### 2 09160 ####[facility],[address] [place] [address] Urinalysis dipstick W Reflex Microscopic panel (U) NOT INDICATED Normal [facility] Comment on above: Performed By: #### 2 04283 ####[facility],[address] [place] [address] Urobilinog NORM Normal NORMAL: NORMAL [facility] Comment on above: Performed By: #### 2 00948 ####[facility],[address] [place], [place] [id number] [employer] Cytology Reporton 2024 [employer] Rep[employer]r Cytology Report Normal [facility] HPVon 11-18-2024 HPV Interp Normal See Interp HPVN [facility] Comment on above: Order Comment: Order placed by AP_HPV_ORDER rule from [id number] Result Comment: High Risk HPV Typing: NEGATIVEHPV [...] Interp HPVN Performed By: #### H PV ####[place] [address] HPV Source Cervix Normal [facility] Comment on above: Order Comment: Order placed by [email or web address] rule from [id number] Performed By: #### H PV ####[place] [address] CBLon 11-11-2024 CBL Normal [facility] URINE CULTURE [CCL]on 2024 Bacteria identified Cx Nom (U) Normal [facility] Comment on above: Performed By: #### 2 66600 ####[facility],[address] [place] [address] 46020 CBC + DIFFon 11-06-2024 Baso # 0.03 x10EE3/UL Normal 0.00 - 0.10 [facility] Comment on above: Performed By: #### 2 98822 ####[facility],[address] [place] [address] Basophils/100 WBC (Bld) 0.3 % Normal 0.0 - 2.0 [facility] Comment on above: Performed By: #### 2 17287 ####[facility],[address] [place] [address] CBC + DIFF Normal [facility] Comment on above: Result Comment: CBC- COMPLETE BLOOD COUNT Performed By: #### 2 61328 ####[facility],[address] [place] [address] EO # 0.15 x10EE3/UL Normal 0.00 - 0.50 [facility] Comment on above: Performed By: #### 2 40231 ####[place] [address] Eosinophils/100 WBC (Bld) 1.5 % Normal 0.0 - 7.0 [facility] Comment on above: Performed By: #### 2 93886 ####[place] [address] Erythrocyte distribution width (RBC) [Ratio] 14.8 % Normal 12.0 - 15.6 [facility] Comment on above: Performed By: #### 2 36799 ####[facility],[address] [place] [address] Hematocrit (Bld) [Volume fraction] 40.4 % Normal 34.0 - 46.0 [facility] Comment on above: Performed By: #### 2 03399 ####[facility],[address] [place] [address] Hemoglobin (Bld) [Mass/Vol] 13.9 g/dL Normal 12.0 - 16.0 [facility] Comment on above: Performed By: #### 2 81134 ####[facility],[address] [place] [address] Lymph # 2.56 x10EE3/UL Normal 0.80 - 2.80 [facility] Comment on above: Performed By: #### 2 44892 ####[facility],[address] [place] [address] Lymphocytes/100 WBC (Bld) 25.3 % Normal 20.0 - 45.0 [facility] Comment on above: Performed By: #### 2 18222 ####[facility],[address] [place] [address] MANUAL DIFF N/A Normal [facility] Comment on above: Performed By: #### 2 87178 ####[facility],[address] [place] [address] MCH (RBC) [Entitic mass] 33 pg Normal 27 - 33 [facility] Comment on above: Performed By: #### 2 94528 ####[facility],[address] [place] [address] MCHC 34 X10 3 Normal 32 - 36 [facility] Comment on above: Performed By: #### 2 00827 ####[facility],[address] [place] [address] MCV (RBC) [Entitic vol] 97 fL Normal 80 - 99 [facility] Comment on above: Performed By: #### 2 26392 ####[facility],[address] [place] [address] [place] # 0.91 x10EE3/UL Normal 0.20 - 1.00 [facility] Comment on above: Performed By: #### 2 53765 ####[facility],[address] [place] [address] MONOS % 9.0 % Normal 0.0 - 10.0 [facility] Comment on above: Performed By: #### 2 81412 ####[facility],[address] [place] [address] Morphology Efra (Bld) [Interp] N/A Normal [facility] Comment on above: Performed By: #### 2 60297 ####[facility],[address] [place] [address] 12972 Neut # 6.45 x10EE3/UL Normal 1.50 - 7.10 [facility] Comment on above: Performed By: #### 2 71692 ####[facility],[address] [place], [place] [address] Neutrophils/100 WBC (Bld) 63.8 % Normal 46.0 - 76.0 [facility] Comment on above: Performed By: #### 2 79485 ####[facility],[address] [place] [address] 75458 PLATELET 457 x10EE3/UL High 150 - 450 [facility] Comment on above: Performed By: #### 2 17155 ####[facility],[address] [place] [address] Platelet mean volume (Bld) [Entitic vol] 6.6 fL Normal 6.6 - 10.5 [facility] Comment on above: Result Comment: AUTO MATED DIFFERENTIAL Performed By: #### 2 92847 ####[facility],[address] [place] [address] 67511 RBC 4.15 x 10EE6/UL Normal 4.10 - 5.30 [facility] Comment on above: Performed By: #### 2 78994 ####[facility],[address] [place], [place] [address] WBC 10.1 x 10EE3/UL Normal 4.5 - 10.8 [facility] Comment on above: Performed By: #### 2 10521 ####[facility],[address] [place], [place] [id number] CHEST 1 VIEWon 11-06-2024 CHEST 1 VIEW Normal [facility] CMP with eGFRon 11-06-2024 AGE 33 years Normal [facility] Comment on above: Performed By: #### 2 80873 ####[facility],[address] [place] [address] 95050 Albumin [Mass/Vol] 3.9 g/dL Normal 3.4 - 5.0 [facility] Comment on above: Performed By: #### 2 46643 ####[facility],[address] [place] [address] 36391 Albumin/Globulin [Mass ratio] 1.1 {ratio} Normal 0.9 - 1.6 [facility] Comment on above: Performed By: #### 2 87426 ####[facility],[address] [place] [address] 88296 ALK PHOS 81 U/L Normal 46 - 116 [facility] Comment on above: Performed By: #### 2 44851 ####[facility],[address] [place] [address] 03958 ALT [Catalytic activity/Vol] 13 U/L Low 16 - 63 [facility] Comment on above: Performed By: #### 2 56777 ####[facility],[address] [place] [address] 54890 Anion gap [Moles/Vol] 15 mmol/L Normal 10 - 20 [facility] Comment on above: Performed By: #### 2 20322 ####[facility],[address] [place] [address] 84412 AST [Catalytic activity/Vol] 12 U/L Low 13 - 39 [facility] Comment on above: Performed By: #### 2 91963 ####[facility],[address] [place] [address] 72128 B/C RATIO 6 ratio Normal 0 - 30 [facility] Comment on above: Performed By: #### 2 36147 ####[facility],[address] [place] [address] 02359 Bilirubin [Mass/Vol] 0.5 mg/dL Normal 0.2 - 1.0 [facility] Comment on above: Performed By: #### 2 98460 ####[facility],[address] [place] [address] 92283 Calcium [Mass/Vol] 9.1 mg/dL Normal 8.5 - 10.1 [facility] Comment on above: Performed By: #### 2 90587 ####[facility],[address] [place] [address] 67438 Chloride [Moles/Vol] 101 mmol/L Normal 98 - 107 [facility] Comment on above: Performed By: #### 2 09889 ####[facility],[address] [place] [address] 96393 CMP with eGFR Normal [facility] Comment on above: Result Comment: COMP REHENSIVE METABOLIC PANEL Performed By: #### 2 83523 ####[facility],[address] [place] [address] 14446 CO2 [Moles/Vol] 28.6 mmol/L Normal 21.0 - 32.0 [facility] Comment on above: Performed By: #### 2 36990 ####[facility],[address] [place] [address] 39500 Creatinine [Mass/Vol] 1.08 mg/dL High 0.55 - 1.02 [facility] Comment on above: Performed By: #### 2 01625 ####[facility],[address] [place] [address] 16578 eGFR 58 ML/MINUTE Low 60 - 999 [facility] Comment on above: Performed By: #### 2 76655 ####[facility],[address] [place] [address] 93333 GFR/1.73 sq M.predicted among non-blacks MDRD (S/P/Bld) [Vol rate/Area] mL/min/{1.73_m2} Normal 60 - 999 [facility] Comment on above: Result Comment: ACCO RDING TO THE NATIONAL KIDNEY DISEASE EDUCATION PROGRAM(NKDE), A NORMAL eGFRIS A VALUE GREATER THAN OR EQUAL TO 60 ML/MIN/1.73 SQ METERS.CHRONIC KIDNEY DISEASE: <60mL/MIN/1.73 SQ METERSKIDNEY FAILURE: <15mL/MIN/1.73 SQ METERSTHIS TEST SHOULD ONLY BE USED FOR PATIENTS 18 YEARS OF AGE AND OLDER. Performed By: #### 2 26374 ####[facility],[address] [place] [address] 77527 Globulin (S) [Mass/Vol] 3.5 g/dL Normal 1.5 - 3.8 [facility] Comment on above: Performed By: #### 2 74501 ####[facility],[address] [place] [address] 09404 Glucose [Mass/Vol] 79 mg/dL Normal 74 - 106 [facility] Comment on above: Performed By: #### 2 05038 ####[facility],[address] [place] [address] 41759 Potassium [Moles/Vol] 3.9 mmol/L Normal 3.5 - 5.1 [facility] Comment on above: Performed By: #### 2 61116 ####[facility],[address] [place] [address] 05399 Protein [Mass/Vol] 7.4 g/dL Normal 6.4 - 8.2 [facility] Comment on above: Performed By: #### 2 44231 ####[facility],[address] [place] [address] 09567 Sodium [Moles/Vol] 141 mmol/L Normal 136 - 145 [facility] Comment on above: Performed By: #### 2 50478 ####[facility],[address] [place] [address] 10124 Urea nitrogen [Mass/Vol] 7 mg/dL Normal 7 - 18 [facility] Comment on above: Performed By: #### 2 06702 ####[facility],[address] [place] [address] ABDOMEN/PELVIS Won 2024 CT ABDOMEN/PELVIS W Normal [facility] CULTURE BLOOD [VANESSA]on Microscopic examination of blood, culture CULTURE BLOOD [VANESSA] _BLOOD CULTURE_ GO TO [employer] REPORTS AND ATTACHMENTS FOR SCANNED REPORT 11/12/24.0941.TLJ.COMPLE TE Normal [facility] Comment on above: Performed By: #### 2 81862 ####[facility],[address] [place] [address] Microscopic examination of blood, culture CULTURE BLOOD [VANESSA] _BLOOD CULTURE_ GO TO [employer] REPORTS AND ATTACHMENTS FOR SCANNED REPORT 11/12/24.1006.TLJ.COMPLE TE Normal [facility] Comment on above: Performed By: #### 2 34837 ####[facility],[address] [place] [address] ED MED ADMINISTRATION DETAIL on 11-06-2024 ED MED ADMINISTRATION DETAIL Normal [facility] ED NURSES CLINICAL NOTEon ED NURSES CLINICAL NOTE Normal [facility] ED ORDER SHEET (CPOE ONLY)on 11-06-2024 ED ORDER SHEET (CPOE ONLY) Normal [facility] ED PHYSICIAN CLINICAL REPORT on 11-06-2024 ED PHYSICIAN CLINICAL REPORT Normal [facility] ED PHYSICIAN DISCHARGE REPOR Ton 11-06-2024 ED PHYSICIAN DISCHARGE REPORT Normal [facility] ED SUPER BILLon 11-06-2024 ED SUPER BILL Normal [facility] ED VISIT SUMMARYon ED VISIT SUMMARY Normal [facility] ED VITALS FLOW SHEETon 11-06 ED VITALS FLOW SHEET Normal [facility] LACTATEon 11-06-2024 Lactate [Moles/Vol] 1.1 mmol/L Normal 0.4 - 2.0 [facility] Comment on above: Performed By: #### 2 43852 ####[facility],[address] [place] [address] URINEon 11-06-2024 Beta HCG ( test) Ql (U) Negative Normal NEGATIVE [facility] Comment on above: Performed By: #### 2 83092 ####[facility],[address] [place] [address] 32743 EXTERNAL QC DONE? YES Normal [facility] Comment on above: Performed By: #### 2 26571 ####[facility],[address] [place], [place] [id number] INTERNAL QC PASS Normal [facility] Comment on above: Performed By: #### 2 20846 ####[facility],[address] [place] [address] 32863 TROPONINon 11-06-2024 HS TROPONIN <4.0 Normal 0.0 - 51.4 [facility] Comment on above: Performed By: #### 2 74912 ####[facility],[address] [place] [address] 73960 URINALYSISon 11-06-2024 Amorphous NONE Normal [facility] Comment on above: Performed By: #### 2 05037 ####[facility],[address] [place], [place] [address] Bacteria TRACE Normal [facility] Comment on above: Performed By: #### 2 86374 ####[facility],[address] [place] [address] 94421 Bilirubin Ql (U) Negative Normal NORMAL: NEGATIVE [facility] Comment on above: Performed By: #### 2 96284 ####[facility],[address] [place] [address] 47107 Casts NONE Normal [facility] Comment on above: Performed By: #### 2 90042 ####[facility],[address] [place] [address] 45410 Clarity (U) SL. CLOUDY Abnormal NORMAL: CLEAR [facility] Comment on above: Performed By: #### 2 83409 ####[facility],[address] [place] [address] 08771 Color (U) yellow Normal NORMAL: YELLOW [facility] Comment on above: Performed By: #### 2 28617 ####[facility],[address] [place] [address] 82586 Crystals LM Nom (Urine sed) NONE Normal [facility] Comment on above: Performed By: #### 2 05642 ####[facility],[address] [place] [address] 24095 Epi Cells OCC Normal [facility] Comment on above: Performed By: #### 2 09906 ####[facility],[address] [place] [address] 61319 Glucose Ql (U) NORM Normal NORMAL: NORMAL [facility] Comment on above: Performed By: #### 2 31766 ####[facility],[address] [place] [address] 13019 Hemoglobin Ql (U) 10 Abnormal NORMAL: NEGATIVE [facility] Comment on above: Performed By: #### 2 13271 ####[facility],[address] [place] [address] 44768 Ketone Negative Normal NORMAL: NEGATIVE [facility] Comment on above: Performed By: #### 2 60921 ####[facility],[address] [place] [address] 77802 Leukocytes Negative Normal NORMAL: NEGATIVE [facility] Comment on above: Performed By: #### 2 88923 ####[facility],[address] [place] [address] 72601 Mucous NONE Normal [facility] Comment on above: Performed By: #### 2 33804 ####[facility],[address] [place] [address] 18793 Nitrite Ql (U) Negative Normal NORMAL: NEGATIVE [facility] Comment on above: Performed By: #### 2 94439 ####[facility],[address] [place] [address] 18391 pH (U) 6 [pH] Normal NORMAL: 5.0-8.0 [facility] Comment on above: Result Comment: UNAB LE TO PERFORM PROTEIN Performed By: #### 2 39295 ####[facility],[address] [place] [address] 53883 Rbc 0-5 Normal 0-3/hpf [facility] Comment on above: Performed By: #### 2 03081 ####[facility],[address] [place] [address],[facility] [address] Sp [place] 1.020 Normal NORMAL: 1.010-1.030 [facility] Comment on above: Performed By: #### 2 42837 ####[facility],[address] [place] [address] Specimen Type R Normal [facility] Comment on above: Performed By: #### 2 45480 ####[facility],[address] [place], [place] [id number] Urinalysis dipstick W Reflex Microscopic panel (U) SEE BELOW Normal [facility] Comment on above: Result Comment: MICR OSCOPIC Performed By: #### 2 90533 ####[facility],[address] [place], [place] [address] Urobilinog NORM Normal NORMAL: NORMAL [facility] Comment on above: Performed By: #### 2 01292 ####[facility],[address] [place] [address] 77196 Wbc NONE Normal 0-5/hpf [facility] Comment on above: Performed By: #### 2 27827 ####[facility],[address] [place] [address] 51698 Yeast NONE Normal [facility] Comment on above: Performed By: #### 2 04629 ####[facility],[address] [place] [address] 67214 Amorphous NONE Normal [facility] Comment on above: Performed By: #### 2 42621 ####[facility],[address] [place] [address] 76711 Bacteria 4+ Normal [facility] Comment on above: Performed By: #### 2 71749 ####[facility],[address] [place] [address] 44825 Bilirubin Ql (U) Negative Normal NORMAL: NEGATIVE [facility] Comment on above: Performed By: #### 2 02266 ####[facility],[address] [place], [place] [id number] Casts NONE Normal [facility] Comment on above: Performed By: #### 2 35291 ####[facility],[address] [place], [place] [address] Clarity (U) CLOUDY Abnormal NORMAL: CLEAR [facility] Comment on above: Performed By: #### 2 02800 ####[facility],[address] [place] [address] Color (U) orange Normal NORMAL: YELLOW [facility] Comment on above: Performed By: #### 2 61783 ####[facility],[address] [place], [place] [address] Crystals LM Nom (Urine sed) NONE Normal [facility] Comment on above: Performed By: #### 2 84231 ####[facility],[address] [place], [place] [address] Epi Cells NONE Normal [facility] Comment on above: Performed By: #### 2 06982 ####[facility],[address] [place] [address] 79778 Glucose Ql (U) NORM Normal NORMAL: NORMAL [facility] Comment on above: Performed By: #### 2 38398 ####[facility],[address] [place] [address] 92222 Hemoglobin Ql (U) 250 Abnormal NORMAL: NEGATIVE [facility] Comment on above: Performed By: #### 2 58473 ####[facility],[address] [place] [address] 54907 Ketone Negative Normal NORMAL: NEGATIVE [facility] Comment on above: Performed By: #### 2 04100 ####[facility],[address] [place] [address] Leukocytes 500 Abnormal NORMAL: NEGATIVE [facility] Comment on above: Performed By: #### 2 75287 ####[facility],[address] [place] [address] Mucous NONE Normal [facility] Comment on above: Performed By: #### 2 47566 ####[facility],[address] [place] [address] Nitrite Ql (U) Positive Normal NORMAL: NEGATIVE [facility] Comment on above: Performed By: #### 2 08023 ####[facility],[address] [place] [address] pH (U) 7 [pH] Normal NORMAL: 5.0-8.0 [facility] Comment on above: Result Comment: UNAB LE TO PERFORM PROTEIN Performed By: #### 2 96870 ####[facility],[address] [place] [address] Rbc TNTC Normal 0-3/hpf [facility] Comment on above: Performed By: #### 2 02060 ####[facility],[address] [place] [address] Sp [place] 1.010 Normal NORMAL: 1.010-1.030 [facility] Comment on above: Performed By: #### 2 85428 ####[facility],[address] [place] [address] Specimen Type R Normal [facility] Comment on above: Performed By: #### 2 78665 ####[facility],[address] [place] [address] Urinalysis dipstick W Reflex Microscopic panel (U) SEE BELOW Normal [facility] Comment on above: Result Comment: MICR OSCOPIC Performed By: #### 2 77219 ####[facility],[address] [place] [address] Urobilinog NORM Normal NORMAL: NORMAL [facility] Comment on above: Performed By: #### 2 44911 ####[facility],[address] [place], [place] [phone] WBC (U) [#/Vol] /uL Normal 0-5/hpf [facility] Comment on above: Performed By: #### 2 45463 ####[facility],[address] [place], [place] [address] Yeast NONE Normal [facility] Comment on above: Performed By: #### 2 29679 ####[facility],[address] [place] [address] IR NEPHROSTOMY EXCHANGEon IR NEPHROSTOMY EXCHANGE Normal [facility] ED MED ADMINISTRATION DETAIL on 09-04-2024 ED MED ADMINISTRATION DETAIL Normal [facility] ED NURSES CLINICAL NOTEon ED NURSES CLINICAL NOTE Normal [facility] ED ORDER SHEET (CPOE ONLY)on 09-04-2024 ED ORDER SHEET (CPOE ONLY) Normal [facility] ED PHYSICIAN CLINICAL REPORT on 09-04-2024 ED PHYSICIAN CLINICAL REPORT Normal [facility] ED PHYSICIAN DISCHARGE REPOR Ton 09-04-2024 ED PHYSICIAN DISCHARGE REPORT Normal [facility] ED SUPER BILLon 09-04-2024 ED SUPER BILL Normal [facility] ED VISIT SUMMARYon ED VISIT SUMMARY Normal [facility] ED VITALS FLOW SHEETon 09-04 ED VITALS FLOW SHEET Normal [facility] BMP with eGFRon 08-31-2024 AGE 33 years Normal [facility] Comment on above: Performed By: #### 2 80147 ####[facility],[address] [place], [place] [phone] Anion gap [Moles/Vol] 17 mmol/L Normal [facility] Comment on above: Performed By: #### 2 85126 ####[facility],[address] [place], [place] [phone] BMP with eGFR Normal [facility] Comment on above: Result Comment: BASI C METABOLIC PANEL Performed By: #### 2 06264 ####[facility],[address] [place] [address] 35508 Calcium [Mass/Vol] 8.3 mg/dL Low 8.5 - 10.1 [facility] Comment on above: Performed By: #### 2 31171 ####[facility],[address] [place], [place] [phone] Chloride [Moles/Vol] 109 mmol/L High 98 - 107 [facility] Comment on above: Performed By: #### 2 81401 ####[facility],[address] [place], [place] [phone] CO2 [Moles/Vol] 20.7 mmol/L Low 21.0 - 32.0 [facility] Comment on above: Performed By: #### 2 84072 ####[place] [phone] Creatinine [Mass/Vol] 0.96 mg/dL Normal 0.55 - 1.02 [facility] Comment on above: Performed By: #### 2 67526 ####[place] [phone] GFR/1.73 sq M.predicted among non-blacks MDRD (S/P/Bld) [Vol rate/Area] mL/min/{1.73_m2} Normal 60 - 999 [facility] Comment on above: Performed By: #### 2 45691 ####[facility],[address] [place] [address] Result Comment: ACCO RDING TO THE NATIONAL KIDNEY DISEASE EDUCATION PROGRAM(NKDE), A NORMAL eGFRIS A VALUE GREATER THAN OR EQUAL TO 60 ML/MIN/1.73 SQ METERS.CHRONIC KIDNEY DISEASE: <60mL/MIN/1.73 SQ METERSKIDNEY FAILURE: <15mL/MIN/1.73 SQ METERSTHIS TEST SHOULD ONLY BE USED FOR PATIENTS 18 YEARS OF AGE AND OLDER. Glucose [Mass/Vol] 124 mg/dL High 74 - 106 [facility] Comment on above: Performed By: #### 2 51411 ####[facility],[address] [place] [address] 66399 Potassium [Moles/Vol] 3.5 mmol/L Normal 3.5 - 5.1 [facility] Comment on above: Performed By: #### 2 45182 ####[facility],[address] [place] [address] 03142 Sodium [Moles/Vol] 143 mmol/L Normal 136 - 145 [facility] Comment on above: Performed By: #### 2 72393 ####[facility],[address] [place] [address] 95346 Urea nitrogen [Mass/Vol] 8 mg/dL Normal 7 - 18 [facility] Comment on above: Performed By: #### 2 48335 ####[facility],[address] [place] [address] 15978 AGE 33 years Normal [facility] Comment on above: Performed By: #### 2 84961 ####[facility],[address] [place] [address] 12141 Anion gap [Moles/Vol] 18 mmol/L Normal 10 - 20 [facility] Comment on above: Performed By: #### 2 46690 ####[facility],[address] [place] [address] 00581 BMP with eGFR Normal [facility] Comment on above: Result Comment: BASI C METABOLIC PANEL Performed By: #### 2 16261 ####[facility],[address] [place] [address] 89214 Calcium [Mass/Vol] 9.4 mg/dL Normal 8.5 - 10.1 [facility] Comment on above: Performed By: #### 2 29626 ####[facility],[address] [place] [address] 11264 Chloride [Moles/Vol] 104 mmol/L Normal 98 - 107 [facility] Comment on above: Performed By: #### 2 11664 ####[facility],[address] [place] [address] 37475 CO2 [Moles/Vol] 24.0 mmol/L Normal 21.0 - 32.0 [facility] Comment on above: Performed By: #### 2 92278 ####[facility],[address] [place] [address] 09268 Creatinine [Mass/Vol] 1.11 mg/dL High 0.55 - 1.02 [facility] Comment on above: Performed By: #### 2 73514 ####[facility],[address] [place] [address] 36227 eGFR 56 ML/MINUTE Low 60 - 999 [facility] Comment on above: Performed By: #### 2 97934 ####[facility],[address] [place] [address] 76948 GFR/1.73 sq M.predicted among non-blacks MDRD (S/P/Bld) [Vol rate/Area] mL/min/{1.73_m2} Normal 60 - 999 [facility] Comment on above: Result Comment: ACCO RDING TO THE NATIONAL KIDNEY DISEASE EDUCATION PROGRAM(NKDE), A NORMAL eGFRIS A VALUE GREATER THAN OR EQUAL TO 60 ML/MIN/1.73 SQ METERS.CHRONIC KIDNEY DISEASE: <60mL/MIN/1.73 SQ METERSKIDNEY FAILURE: <15mL/MIN/1.73 SQ METERSTHIS TEST SHOULD ONLY BE USED FOR PATIENTS 18 YEARS OF AGE AND OLDER. Performed By: #### 2 41438 ####[facility],[address] [place] [address] 34166 Glucose [Mass/Vol] 146 mg/dL High 74 - 106 [facility] Comment on above: Performed By: #### 2 17186 ####[facility],[address] [place] [address] 45703 Potassium [Moles/Vol] 2.9 mmol/L Critically low 3.5 - 5.1 [facility] Comment on above: Result Comment: { CA LLED TO ED AT 0650{ READ BACK BY TADEO TO BELLA Performed By: #### 2 54812 ####[facility],[address] [place] [address] 01727 Sodium [Moles/Vol] 143 mmol/L Normal 136 - 145 [facility] Comment on above: Performed By: #### 2 70041 ####[facility],[address] [place] [address] Urea nitrogen [Mass/Vol] 9 mg/dL Normal 7 - 18 [facility] Comment on above: Performed By: #### 2 23519 ####[facility],[address] [place] [address] CBC + DIFFon 08-31-2024 Baso # 0.06 x10EE3/UL Normal 0.00 - 0.10 [facility] Comment on above: Performed By: #### 2 30576 ####[facility],[address] [place] [address] 49267 Basophils/100 WBC (Bld) 0.3 % Normal 0.0 - 2.0 [facility] Comment on above: Performed By: #### 2 16450 ####[facility],[address] [place] [address] 96524 CBC + DIFF Normal [facility] Comment on above: Result Comment: CBC- COMPLETE BLOOD COUNT Performed By: #### 2 83675 ####[facility],[address] [place] [address] 84456 EO # 0.19 x10EE3/UL Normal 0.00 - 0.50 [facility] Comment on above: Performed By: #### 2 03173 ####[facility],[address] [place] [address] 33124 Eosinophils/100 WBC (Bld) 1.1 % Normal 0.0 - 7.0 [facility] Comment on above: Performed By: #### 2 36707 ####[facility],[address] [place], [place] [id number] Erythrocyte distribution width (RBC) [Ratio] 14.0 % Normal 12.0 - 15.6 [facility] Comment on above: Performed By: #### 2 88406 ####[facility],[address] [place] [address] Hematocrit (Bld) [Volume fraction] 47.1 % High 34.0 - 46.0 [facility] Comment on above: Performed By: #### 2 57560 ####[facility],[address] [place] [address] Hemoglobin (Bld) [Mass/Vol] 15.6 g/dL Normal 12.0 - 16.0 [facility] Comment on above: Performed By: #### 2 55677 ####[facility],[address] [place] [address] Lymph # 3.41 x10EE3/UL High 0.80 - 2.80 [facility] Comment on above: Performed By: #### 2 41899 ####[facility],[address] [place], [place] [address] Lymphocytes/100 WBC (Bld) 20.7 % Normal 20.0 - 45.0 [facility] Comment on above: Performed By: #### 2 69829 ####[facility],[address] [place], [place] [id number] MANUAL DIFF N/A Normal [facility] Comment on above: Performed By: #### 2 45871 ####[facility],[address] [place], [place] [phone] MCH (RBC) [Entitic mass] 32 pg Normal 27 - 33 [facility] Comment on above: Performed By: #### 2 33875 ####[facility],[address] [place] [address] 47057 MCHC 33 X10 3 Normal 32 - 36 [facility] Comment on above: Performed By: #### 2 98790 ####[facility],[address] [place] [address] 11987 MCV (RBC) [Entitic vol] 97 fL Normal 80 - 99 [facility] Comment on above: Performed By: #### 2 39968 ####[facility],[address] [place] [address] 97495 [place]worth # 1.00 x10EE3/UL Normal 0.20 - 1.00 [facility] Comment on above: Performed By: #### 2 76858 ####[facility],[address] [place] [address] 56608 MONOS % 6.1 % Normal 0.0 - 10.0 [facility] Comment on above: Performed By: #### 2 38821 ####[facility],[address] [place] [address] 08812 Morphology Efra (Bld) [Interp] N/A Normal [facility] Comment on above: Performed By: #### 2 54686 ####[facility],[address] [place] [address] Neut # 11.82 x10EE3/UL High 1.50 - 7.10 [facility] Comment on above: Performed By: #### 2 33282 ####[facility],[address] [place] [address] 69797 Neutrophils/100 WBC (Bld) 71.8 % Normal 46.0 - 76.0 [facility] Comment on above: Performed By: #### 2 23428 ####[facility],[address] [place] [address] 81726 PLATELET 387 x10EE3/UL Normal 150 - 450 [facility] Comment on above: Performed By: #### 2 53786 ####[facility],[address] [place] [address] 13476 Platelet mean volume (Bld) [Entitic vol] 7.1 fL Normal 6.6 - 10.5 [facility] Comment on above: Result Comment: AUTO MATED DIFFERENTIAL Performed By: #### 2 87899 ####[facility],[address] [place], [place] [address] RBC 4.88 x 10EE6/UL Normal 4.10 - 5.30 [facility] Comment on above: Performed By: #### 2 51806 ####[facility],[address] [place] [address] WBC 16.5 x 10EE3/UL High 4.5 - 10.8 [facility] Comment on above: Performed By: #### 2 70216 ####[facility],[address] [place] [address] CT ABDOMEN/PELVIS WOon 08-31 CT ABDOMEN/PELVIS WO Normal [facility] SERUM QUALon 08-31 EXTERNAL QC DONE? YES Normal [facility] Comment on above: Performed By: #### 2 88466 ####[facility],[address] [place] [address] INTERNAL QC PASS Normal [facility] Comment on above: Performed By: #### 2 63429 ####[facility],[address] [place] [address] SER Positive Normal NEGATIVE [facility] Comment on above: Performed By: #### 2 28065 ####[facility],[address] [place] [address] EMERGENCY REPORTon EMERGENCY REPORT Normal [facility] IR NEPHROSTOMY EXCHANGEon IR NEPHROSTOMY EXCHANGE Normal [facility] LABORATORYOrdered By: Courtney Freed on 08-11-2024 Beta HCG ( test) Ql (U) Negative (08/11/24 8:31 AM) [facility] Work Phone: .Auto Diffon 08-06-2024 Basophil, Absolute 0.1 10 3/mcL Normal 0.0-0.3 [facility] Comment on above: Performed By: #### B MP, ANEU, GFR, ADIFF, CBC ####[address] [address] Basophils/100 WBC (Bld) 1.2 % Normal 0.0-2.5 [facility] Comment on above: Performed By: #### B MP, ANEU, GFR, ADIFF, CBC ####[address] [address] Eosinophil, Absolute 0.4 10 3/mcL Normal 0.0-0.7 [facility] Comment on above: Performed By: #### B MP, ANEU, GFR, ADIFF, CBC ####[address] [address] Eosinophils/100 WBC (Bld) 4.3 % Normal 0.0-6.0 [facility] Comment on above: Performed By: #### B MP, ANEU, GFR, ADIFF, CBC ####[address] [address] Lymphocyte, Absolute 1.8 10 3/mcL Normal 0.9-4.3 [facility] Comment on above: Performed By: #### B MP, ANEU, GFR, ADIFF, CBC ####[address] [address] Lymphocytes/100 WBC (Bld) 20.0 % Normal 20.0-40.0 [facility] Comment on above: Performed By: #### B MP, ANEU, GFR, ADIFF, CBC ####[address] [address] Monocyte, Absolute 0.5 10 3/mcL Normal 0.1-1.4 [facility] Comment on above: Performed By: #### B MP, ANEU, GFR, ADIFF, CBC ####[address] [address] Monocytes/100 WBC (Bld) 6.1 % Normal 2.0-13.0 [facility] Comment on above: Performed By: #### B MP, ANEU, GFR, ADIFF, CBC ####[address] [address] Neutrophils/100 WBC (Bld) 68.4 % Normal 50.0-75.0 [facility] Comment on above: Performed By: #### B MP, ANEU, GFR, ADIFF, CBC ####[address] [address] .GFRon 08-06-2024 GFR >60 Normal [facility] Comment on above: Result Comment: GFR [...] #### B MP, ANEU, GFR, ADIFF, CBC ####[address] [address] GFR Non- >60 Normal [facility] Comment on above: Result Comment: GFR [...] #### B MP, ANEU, GFR, ADIFF, CBC ####[address] [address] .NEUABSon 08-06-2024 Neutrophil, Absolute 6.1 10 3/mcL Normal 2.3-8.1 [facility] Comment on above: Performed By: #### B MP, ANEU, GFR, ADIFF, CBC ####[place] [id number] BMPon 08-06-2024 BUN/Creatinine Ratio 13.3 ratio Normal 10.0-22.0 [facility] Comment on above: Performed By: #### B MP, ANEU, GFR, ADIFF, CBC ####[place] [address] Calcium [Mass/Vol] 10.7 mg/dL High 8.7-10.4 [facility] Comment on above: Performed By: #### B MP, ANEU, GFR, ADIFF, CBC ####[place] [address] Chloride [Moles/Vol] 110 mmol/L Normal 98-110 [facility] Comment on above: Performed By: #### B MP, ANEU, GFR, ADIFF, CBC ####[place] [address] CO2 [Moles/Vol] 27 mmol/L Normal 22-32 [facility] Comment on above: Performed By: #### B MP, ANEU, GFR, ADIFF, CBC ####[place] [address] Creatinine [Mass/Vol] 0.90 mg/dL Normal 0.50-1.20 [facility] Comment on above: Result Comment: Test ing performed on Parakey analyzer using enzymatic creatinine methodology. Performed By: #### B MP, ANEU, GFR, ADIFF, CBC ####[place] [address] Electrolyte Balance 6.0 mEq/L Normal 4.0-15.0 [facility] Comment on above: Performed By: #### B MP, ANEU, GFR, ADIFF, CBC ####[place] [address] Glucose [Mass/Vol] 85 mg/dL Normal 70-110 [facility] Comment on above: Performed By: #### B MP, ANEU, GFR, ADIFF, CBC ####[place] [address] Potassium [Moles/Vol] 4.4 mmol/L Normal 3.5-5.0 [facility] Comment on above: Performed By: #### B MP, ANEU, GFR, ADIFF, CBC ####[place] [address] Sodium [Moles/Vol] 143 mmol/L Normal 136-145 [facility] Comment on above: Performed By: #### B MP, ANEU, GFR, ADIFF, CBC ####[place] [address] Urea nitrogen [Mass/Vol] 12.0 mg/dL Normal 8.0-22.0 [facility] Comment on above: Performed By: #### B MP, ANEU, GFR, ADIFF, CBC ####[place] [address] CBCon 08-06-2024 Erythrocyte distribution width (RBC) [Ratio] 16.0 % High 11.5-15.5 [facility] Comment on above: Performed By: #### B MP, ANEU, GFR, ADIFF, CBC ####[place] [address] Hematocrit (Bld) [Volume fraction] 40.0 % Normal 34.0-46.0 [facility] Comment on above: Performed By: #### B MP, ANEU, GFR, ADIFF, CBC ####[place] [address] Hgb 13.5 G/dL Normal 12.0-16.0 [facility] Comment on above: Performed By: #### B MP, ANEU, GFR, ADIFF, CBC ####[place] [address] MCH (RBC) [Entitic mass] 32.6 pg Normal 27.0-33.0 [facility] Comment on above: Performed By: #### B MP, ANEU, GFR, ADIFF, CBC ####[place] [address] MCHC 33.8 G/dL Normal 32.0-36.0 [facility] Comment on above: Performed By: #### B MP, ANEU, GFR, ADIFF, CBC ####[place] [address] MCV (RBC) [Entitic vol] 96.4 fL Normal 80.0-99.0 [facility] Comment on above: Performed By: #### B MP, ANEU, GFR, ADIFF, CBC ####[place] [address] Platelet 429 10 3/mcL Normal 150-450 [facility] Comment on above: Performed By: #### B MP, ANEU, GFR, ADIFF, CBC ####[place] [address] Platelet mean volume (Bld) [Entitic vol] 7.4 fL Normal 6.6-10.5 [facility] Comment on above: Performed By: #### B MP, ANEU, GFR, ADIFF, CBC ####[place] [address] RBC 4.15 10 6/mcL Normal 4.10-5.30 [facility] Comment on above: Performed By: #### B MP, ANEU, GFR, ADIFF, CBC ####[place] [address] WBC 8.9 10 3/mcL Normal 4.5-10.8 [facility] Comment on above: Performed By: #### B MP, ANEU, GFR, ADIFF, CBC ####[place] [address] LABORATORYOrdered By: SYSTEM SYSTEM on 08-06-2024 Basophils [...] above: Interpretive Data: T esting performed on Parakey analyzer using enzymatic creatinine methodology. Electrolyte Balance [...] (S/P/Bld) [Vol rate/Area] ml/min/1.73sqm Invalid Interpretation Code [employer] [facility] Comment on above: Interpretive Data: [...] (S/P/Bld) [Vol rate/Area] ml/min/1.73sqm Invalid Interpretation Code [employer] [facility] Comment on above: Interpretive Data: [...] # 0.04 x10EE3/UL Normal 0.00 - 0.10 [facility] Comment on above: Performed By: #### 2 39924 ####[facility],[address] [place] [address] Basophils/100 WBC (Bld) 0.3 % Normal 0.0 - 2.0 [facility] Comment on above: Performed By: #### 2 87890 ####[facility],[address] [place] [address] CBC + DIFF Normal [facility] Comment on above: Result Comment: CBC- COMPLETE BLOOD COUNT Performed By: #### 2 82887 ####[facility],[address] [place] [address] EO # 0.37 x10EE3/UL Normal 0.00 - 0.50 [facility] Comment on above: Performed By: #### 2 59400 ####[facility],[address] [place], [place] [id number] Eosinophils/100 WBC (Bld) 3.1 % Normal 0.0 - 7.0 [facility] Comment on above: Performed By: #### 2 31728 ####[facility],[address] [place] [address] Erythrocyte distribution width (RBC) [Ratio] 14.5 % Normal 12.0 - 15.6 [facility] Comment on above: Performed By: #### 2 92421 ####[facility],[address] [place] [address] Hematocrit (Bld) [Volume fraction] 43.4 % Normal 34.0 - 46.0 [facility] Comment on above: Performed By: #### 2 61578 ####[facility],[address] [place] [address] 61738 Hemoglobin (Bld) [Mass/Vol] 15.0 g/dL Normal 12.0 - 16.0 [facility] Comment on above: Performed By: #### 2 10160 ####[facility],[address] [place] [address] 38674 Lymph # 2.32 x10EE3/UL Normal 0.80 - 2.80 [facility] Comment on above: Performed By: #### 2 76858 ####[facility],[address] [place] [address] 45132 Lymphocytes/100 WBC (Bld) 19.9 % Low 20.0 - 45.0 [facility] Comment on above: Performed By: #### 2 41574 ####[facility],[address] [place] [address] 54457 MANUAL DIFF N/A Normal [facility] Comment on above: Performed By: #### 2 22973 ####[facility],[address] [place] [address] 70925 MCH (RBC) [Entitic mass] 32 pg Normal 27 - 33 [facility] Comment on above: Performed By: #### 2 37051 ####[facility],[address] [place] [address] 52870 MCHC 35 X10 3 Normal 32 - 36 [facility] Comment on above: Performed By: #### 2 89773 ####[facility],[address] [place] [address] 22061 MCV (RBC) [Entitic vol] 94 fL Normal 80 - 99 [facility] Comment on above: Performed By: #### 2 14146 ####[facility],[address] [place] [address] 15942 [place] # 0.68 x10EE3/UL Normal 0.20 - 1.00 [facility] Comment on above: Performed By: #### 2 45369 ####[facility],[address] [place] [address] 25672 MONOS % 5.8 % Normal 0.0 - 10.0 [facility] Comment on above: Performed By: #### 2 99016 ####[facility],[address] [place] [address] 65460 Morphology Efra (Bld) [Interp] N/A Normal [facility] Comment on above: Performed By: #### 2 27493 ####[facility],[address] [place] [address] 58595 Neut # 8.28 x10EE3/UL High 1.50 - 7.10 [facility] Comment on above: Performed By: #### 2 02831 ####[facility],[address] [place] [address] 51523 Neutrophils/100 WBC (Bld) 70.9 % Normal 46.0 - 76.0 [facility] Comment on above: Performed By: #### 2 09431 ####[facility],[address] [place] [address] 56790 PLATELET 398 x10EE3/UL Normal 150 - 450 [facility] Comment on above: Performed By: #### 2 47454 ####[facility],[address] [place] [address] 98242 Platelet mean volume (Bld) [Entitic vol] 6.5 fL Low 6.6 - 10.5 [facility] Comment on above: Result Comment: AUTO MATED DIFFERENTIAL Performed By: #### 2 41204 ####[facility],[address] [place] [address] 01633 RBC 4.62 x 10EE6/UL Normal 4.10 - 5.30 [facility] Comment on above: Performed By: #### 2 72344 ####[facility],[address] [place] [address] 34084 WBC 11.7 x 10EE3/UL High 4.5 - 10.8 [facility] Comment on above: Performed By: #### 2 29165 ####[facility],[address] [place] [address] 12788 CMP with eGFRon 07-10-2024 AGE 33 years Normal [facility] Comment on above: Performed By: #### 2 16960 ####[facility],[address] [place] [address] 24124 Albumin [Mass/Vol] 3.8 g/dL Normal 3.4 - 5.0 [facility] Comment on above: Performed By: #### 2 66003 ####[facility],[address] [place] [address] 35906 Albumin/Globulin [Mass ratio] 1.2 {ratio} Normal 0.9 - 1.6 [facility] Comment on above: Performed By: #### 2 33693 ####[facility],[address] [place] [address] 39361 ALK PHOS 99 U/L Normal 46 - 116 [facility] Comment on above: Performed By: #### 2 02335 ####[facility],[address] [place] [address] 31772 ALT [Catalytic activity/Vol] 13 U/L Low 16 - 63 [facility] Comment on above: Performed By: #### 2 86142 ####[facility],[address] [place] [address] 15311 Anion gap [Moles/Vol] 17 mmol/L Normal 10 - 20 [facility] Comment on above: Performed By: #### 2 61605 ####[facility],[address] [place] [address] 93464 AST [Catalytic activity/Vol] 19 U/L Normal 13 - 39 [facility] Comment on above: Performed By: #### 2 19811 ####[facility],[address] [place] [address] 25954 B/C RATIO 6 ratio Normal 0 - 30 [facility] Comment on above: Performed By: #### 2 14315 ####[facility],[address] [place] [address] 15752 Bilirubin [Mass/Vol] 0.3 mg/dL Normal 0.2 - 1.0 [facility] Comment on above: Performed By: #### 2 05303 ####[facility],[address] [place] [address] 22729 Calcium [Mass/Vol] 9.3 mg/dL Normal 8.5 - 10.1 [facility] Comment on above: Performed By: #### 2 20019 ####[facility],[address] [place] [address] 92827 Chloride [Moles/Vol] 102 mmol/L Normal 98 - 107 [facility] Comment on above: Performed By: #### 2 36362 ####[facility],[address] [place] [address] 89281 CMP with eGFR Normal [facility] Comment on above: Result Comment: COMP REHENSIVE METABOLIC PANEL Performed By: #### 2 57560 ####[facility],[address] [place] [address] 36621 CO2 [Moles/Vol] 26.3 mmol/L Normal 21.0 - 32.0 [facility] Comment on above: Performed By: #### 2 32350 ####[facility],[address] [place] [address] 16339 Creatinine [Mass/Vol] 1.00 mg/dL Normal 0.55 - 1.02 [facility] Comment on above: Performed By: #### 2 89602 ####[facility],[address] [place] [address] 73320 GFR/1.73 sq M.predicted among non-blacks MDRD (S/P/Bld) [Vol rate/Area] mL/min/{1.73_m2} Normal 60 - 999 [facility] Comment on above: Performed By: #### 2 70067 ####[facility],[address] [place], [place] [address] Result Comment: ACCO RDING TO THE NATIONAL KIDNEY DISEASE EDUCATION PROGRAM(NKDE), A NORMAL eGFRIS A VALUE GREATER THAN OR EQUAL TO 60 ML/MIN/1.73 SQ METERS.CHRONIC KIDNEY DISEASE: <60mL/MIN/1.73 SQ METERSKIDNEY FAILURE: <15mL/MIN/1.73 SQ METERSTHIS TEST SHOULD ONLY BE USED FOR PATIENTS 18 YEARS OF AGE AND OLDER. Globulin (S) [Mass/Vol] 3.2 g/dL Normal 1.5 - 3.8 [facility] Comment on above: Performed By: #### 2 15160 ####[place] [id number] Glucose [Mass/Vol] 99 mg/dL Normal 74 - 106 [facility] Comment on above: Performed By: #### 2 46011 ####[address] [address] Potassium [Moles/Vol] 4.0 mmol/L Normal 3.5 - 5.1 [facility] Comment on above: Performed By: #### 2 98969 ####[address] [address] Protein [Mass/Vol] 7.0 g/dL Normal 6.4 - 8.2 [facility] Comment on above: Performed By: #### 2 48483 ####[facility],[address] [place] [address] 21428 Sodium [Moles/Vol] 141 mmol/L Normal 136 - 145 [facility] Comment on above: Performed By: #### 2 77331 ####[address] [address] Urea nitrogen [Mass/Vol] 6 mg/dL Low 7 - 18 [facility] Comment on above: Performed By: #### 2 61119 ####[address] [address] URINALYSISon 07-10-2024 Amorphous NONE Normal [facility] Comment on above: Performed By: #### 2 77483 ####[facility],[address] [place] [address] 44732 Bacteria NONE Normal [facility] Comment on above: Performed By: #### 2 27740 ####[facility],[address] [place] [address] 61191 Bilirubin Ql (U) Negative Normal NORMAL: NEGATIVE [facility] Comment on above: Performed By: #### 2 68807 ####[facility],[address] [place] [address] 97194 Casts NONE Normal [facility] Comment on above: Performed By: #### 2 59129 ####[facility],[address] [place] [address] 44254 Clarity (U) clear Normal NORMAL: CLEAR [facility] Comment on above: Performed By: #### 2 20550 ####[facility],[address] [place] [address] 78701 Color (U) yellow Normal NORMAL: YELLOW [facility] Comment on above: Performed By: #### 2 04581 ####[facility],[address] [place] [address] 21862 Crystals LM Nom (Urine sed) NONE Normal [facility] Comment on above: Performed By: #### 2 31864 ####[facility],[address] [place] [address] 71081 Epi Cells NONE Normal [facility] Comment on above: Performed By: #### 2 72287 ####[facility],[address] [place] [address] 28764 Glucose Ql (U) NORM Normal NORMAL: NORMAL [facility] Comment on above: Performed By: #### 2 06499 ####[facility],[address] [place] [address] 44865 Hemoglobin Ql (U) 10 Abnormal NORMAL: NEGATIVE [facility] Comment on above: Performed By: #### 2 75064 ####[facility],[address] [place] [address] 25016 Ketone Negative Normal NORMAL: NEGATIVE [facility] Comment on above: Performed By: #### 2 83076 ####[facility],[address] [place] [address] 88238 Leukocytes 25 Abnormal NORMAL: NEGATIVE [facility] Comment on above: Performed By: #### 2 89267 ####[facility],[address] [place] [address] 44386 Mucous NONE Normal [facility] Comment on above: Performed By: #### 2 15671 ####[facility],[address] [place] [address] 16571 Nitrite Ql (U) Negative Normal NORMAL: NEGATIVE [facility] Comment on above: Performed By: #### 2 06457 ####[facility],[address] [place], [place] [address] pH (U) 8 [pH] Normal NORMAL: 5.0-8.0 [facility] Comment on above: Performed By: #### 2 64313 ####[facility],[address] [place], [place] [address] Protein Ql (U) 15 Abnormal NORMAL: NEGATIVE [facility] Comment on above: Performed By: #### 2 75873 ####[facility],[address] [place] [address] 85074 Rbc NONE Normal 0-3/hpf [facility] Comment on above: Performed By: #### 2 85075 ####[facility],[address] [place] [address] 51789 Sp [place] 1.010 Normal NORMAL: 1.010-1.030 [facility] Comment on above: Performed By: #### 2 28064 ####[facility],[address] [place], [place] [id number] Specimen Type UNSPECIFIED Normal [facility] Comment on above: Performed By: #### 2 16108 ####[facility],[address] [place], [place] [address] Urinalysis dipstick W Reflex Microscopic panel (U) SEE BELOW Normal [facility] Comment on above: Result Comment: MICR OSCOPIC Performed By: #### 2 43249 ####[facility],[address] [place], [place] [address] Urobilinog NORM Normal NORMAL: NORMAL [facility] Comment on above: Performed By: #### 2 76778 ####[facility],[address] [place] [address] 32136 Wbc 1-5 Normal 0-5/hpf [facility] Comment on above: Performed By: #### 2 45236 ####[facility],[address] [place], [place] [id number] Yeast NONE Normal [facility] Comment on above: Performed By: #### 2 19796 ####[facility],[address] [place], [place] [id number] .GFRon 06-09-2024 GFR >60 Normal [facility] ([place]) Comment on above: Result Comment: GFR Population [...] Performed By: #### G FR, BMP #### [place] [address] GFR Non- >60 Normal [facility] ([place]) Comment on above: Result Comment: GFR Population [...] Performed By: #### Deondre VALDES, BMP #### [address] [address] [facility] 06-09-2024 BUN/Creatinine Ratio 14.1 ratio Normal 10.0-22.0 [facility] ([place]) Comment on above: Performed By: #### Deondre VALDES, BMP #### [address] [address] Calcium [Mass/Vol] 9.0 mg/dL Normal 8.7-10.4 [facility] Comment on above: Performed By: #### Deondre VALDES, BMP #### [address] [address] Chloride [Moles/Vol] 113 mmol/L High 98-110 [facility] ([place]) Comment on above: Performed By: #### Deondre VALDES, BMP #### [address] [address] CO2 [Moles/Vol] 22 mmol/L Normal 22-32 [facility] ([place]) Comment on above: Performed By: #### Deondre VALDES, BMP #### [address] [address] Creatinine [Mass/Vol] 0.85 mg/dL Normal 0.50-1.20 [facility] ([place]) Comment on above: Performed By: #### Deondre VALDES, BMP #### [address] [address] Electrolyte Balance 5.0 mEq/L Normal 4.0-15.0 [facility] ([place]) Comment on above: Performed By: #### G FR, BMP #### [address] [address] Glucose [Mass/Vol] 98 mg/dL Normal 70-110 [facility] [place] Comment on above: Performed By: #### G FR, BMP #### [facility] [address] [place] [address] Potassium [Moles/Vol] 4.2 mmol/L Normal 3.5-5.0 [facility] ([place]) Comment on above: Result Comment: Spec imen slightly hemolyzed. Performed By: #### G FR, BMP #### [address] [address] Sodium [Moles/Vol] 140 mmol/L Normal 136-145 [facility] ([place] Comment on above: Performed By: #### G FR, BMP #### [address] [address] Urea nitrogen [Mass/Vol] 12.0 mg/dL Normal 8.0-22.0 [facility] ([place]) Comment on above: Performed By: #### G , BMP #### [address] [address] LABORATORYOrdered By: Tamia Woodson on 06-09-2024 Beta HCG ( test) Ql (U) Negative (06/09/24 7:24 AM) [facility] Work Phone: LABORATORYOrdered By: SYSTEM SYSTEM on [...] (S/P/Bld) [Vol rate/Area] ml/min/1.73sqm Invalid Interpretation Code [employer] S Comment on above: Interpretive Data: [...] (S/P/Bld) [Vol rate/Area] ml/min/1.73sqm Invalid Interpretation Code [employer] S Comment on above: Interpretive Data: [...] test) Ql (U) Negative (03/03/24 1:07 PM) [facility] Work Phone: .Auto Diffon 01-21-2024 Basophil, Absolute 0.1 10 3/mcL Normal 0.0-0.3 [facility] ([place]) Comment on above: Performed By: #### C BC, ADIFF, PRO, BMP, ANEU, GFR #### [address] [address] Basophils/100 WBC (Bld) 0.8 % Normal 0.0-2.5 [facility] ([place]) Comment on above: Performed By: #### C BC, ADIFF, PRO, BMP, ANEU, GFR #### [address] [address] Eosinophil, Absolute 0.2 10 3/mcL Normal 0.0-0.7 [facility] ([place]) Comment on above: Performed By: #### C BC, ADIFF, PRO, BMP, ANEU, GFR #### [address] [address] Eosinophils/100 WBC (Bld) 1.4 % Normal 0.0-6.0 [facility] ([place]) Comment on above: Performed By: #### C BC, ADIFF, PRO, BMP, ANEU, GFR #### [address] [address] Lymphocyte, Absolute 1.9 10 3/mcL Normal 0.9-4.3 [facility] ([place] Comment on above: Performed By: #### C BC, ADIFF, PRO, BMP, ANEU, GFR #### [address] [address] Lymphocytes/100 WBC (Bld) 16.4 % Low 20.0-40.0 [facility] ([place]) Comment on above: Performed By: #### C BC, ADIFF, PRO, BMP, ANEU, GFR #### [address] [address] Monocyte, Absolute 1.1 10 3/mcL Normal 0.1-1.4 [facility] ([place]) Comment on above: Performed By: #### C BC, ADIFF, PRO, BMP, ANEU, GFR #### [address] [address] Monocytes/100 WBC (Bld) 9.9 % Normal 2.0-13.0 [facility] ([place]) Comment on above: Performed By: #### C BC, ADIFF, PRO, BMP, ANEU, GFR #### [address] [address] Neutrophils/100 WBC (Bld) 71.5 % Normal 50.0-75.0 [facility] ([place]) Comment on above: Performed By: #### C BC, ADIFF, PRO, BMP, ANEU, GFR #### [address] [address] .GFRon 01-21-2024 GFR Non- >60 Normal [facility] ([place]) Comment on above: Result Comment: GFR Population [...] BC, ADIFF, PRO, BMP, ANEU, GFR #### [address] [address] GFR >60 Normal [facility] ([place]) Comment on above: Result Comment: GFR Population [...] BC, ADIFF, PRO, BMP, ANEU, GFR #### [address] [address] .NEUABSon 01-21-2024 Neutrophil, Absolute 8.1 10 3/mcL Normal 2.3-8.1 [facility] ([place] Comment on above: Performed By: #### C BC, ADIFF, PRO, BMP, ANEU, GFR #### [address] [address] BMPon 01-21-2024 BUN/Creatinine Ratio 13.3 ratio Normal 10.0-22.0 [facility] ([place]) Comment on above: Order Comment: Speci men hemolyzed. called to ally in SDU for recollect at 01/21/2024 12:12:11 EDT Performed By: #### C BC, ADIFF, PRO, BMP, ANEU, GFR #### [address] [address] Calcium [Mass/Vol] 10.2 mg/dL Normal 8.7-10.4 [facility] [place] Comment on above: Order Comment: Speci men hemolyzed. called to ally in SDU for recollect at 01/21/2024 12:12:11 EDT Performed By: #### C BC, ADIFF, PRO, BMP, ANEU, GFR #### [address] [address] Chloride [Moles/Vol] 106 mmol/L Normal 98-110 [facility] ([place]) Comment on above: Order Comment: Speci men hemolyzed. called to ally in SDU for recollect at 01/21/2024 12:12:11 EDT Performed By: #### C BC, ADIFF, PRO, BMP, ANEU, GFR #### [address] [address] CO2 [Moles/Vol] 20 mmol/L Low 22-32 [facility] ([place]) Comment on above: Order Comment: Speci men hemolyzed. called to ally in SDU for recollect at 01/21/2024 12:12:11 EDT Performed By: #### C BC, ADIFF, PRO, BMP, ANEU, GFR #### [address] [address] Creatinine [Mass/Vol] 0.90 mg/dL Normal 0.50-1.20 [facility] ([place] Comment on above: Order Comment: Speci men hemolyzed. called to ally in SDU for recollect at 01/21/2024 12:12:11 EDT Performed By: #### C BC, ADIFF, PRO, BMP, ANEU, GFR #### [address] [address] Electrolyte Balance 9.0 mEq/L Normal 4.0-15.0 [facility] ([place]) Comment on above: Order Comment: Speci men hemolyzed. called to ally in SDU for recollect at 01/21/2024 12:12:11 EDT Performed By: #### C BC, ADIFF, PRO, BMP, ANEU, GFR #### [address] [address] Glucose [Mass/Vol] 85 mg/dL Normal 70-110 [facility] [place] Comment on above: Order Comment: Speci men hemolyzed. called to ally in SDU for recollect at 01/21/2024 12:12:11 EDT Performed By: #### C BC, ADIFF, PRO, BMP, ANEU, GFR #### [address] [address] Potassium [Moles/Vol] 5.8 mmol/L High 3.5-5.0 [facility] ([place]) Comment on above: Order Comment: Speci men hemolyzed. called to ally in SDU for recollect at 01/21/2024 12:12:11 EDT Result Comment: Spec imen hemolyzed. Results may be falsely elevated. Performed By: #### C BC, ADIFF, PRO, BMP, ANEU, GFR #### [place] [id number] Sodium [Moles/Vol] 135 mmol/L Low 136-145 [facility] [place] Comment on above: Order Comment: Speci men hemolyzed. called to ally in SDU for recollect at 01/21/2024 12:12:11 EDT Performed By: #### C BC, ADIFF, PRO, BMP, ANEU, GFR #### [place] [address] Urea nitrogen [Mass/Vol] 12.0 mg/dL Normal 8.0-22.0 [facility] ([place]) Comment on above: Order Comment: Speci men hemolyzed. called to ally in SDU for recollect at 01/21/2024 12:12:11 EDT Result Comment: Spec imen hemolyzed. Results may be falsely elevated. Performed By: #### C BC, ADIFF, PRO, BMP, ANEU, GFR #### [address] [address] CBCon 01-21-2024 Erythrocyte distribution width (RBC) [Ratio] 17.2 % High 11.5-15.5 [facility] ([place]) Comment on above: Performed By: #### C BC, ADIFF, PRO, BMP, ANEU, GFR #### [place] [id number] Hematocrit (Bld) [Volume fraction] 44.3 % Normal 34.0-46.0 [facility] ([place]) Comment on above: Performed By: #### C BC, ADIFF, PRO, BMP, ANEU, GFR #### [address] [address] Hgb 15.0 G/dL Normal 12.0-16.0 [facility] ([place]) Comment on above: Performed By: #### C BC, ADIFF, PRO, BMP, ANEU, GFR #### [place] [id number] MCH (RBC) [Entitic mass] 31.3 pg Normal 27.0-33.0 [facility] ([place]) Comment on above: Performed By: #### C BC, ADIFF, PRO, BMP, ANEU, GFR #### [place] [address] MCHC 33.8 G/dL Normal 32.0-36.0 [facility] ([place]) Comment on above: Performed By: #### C BC, ADIFF, PRO, BMP, ANEU, GFR #### [place] [address] MCV (RBC) [Entitic vol] 92.6 fL Normal 80.0-99.0 [facility] ([place]) Comment on above: Performed By: #### C BC, ADIFF, PRO, BMP, ANEU, GFR #### [place] [address] Platelet 429 10 3/mcL Normal 150-450 [facility] ([place]) Comment on above: Performed By: #### C BC, ADIFF, PRO, BMP, ANEU, GFR #### [place] [address] Platelet mean volume (Bld) [Entitic vol] 6.7 fL Normal 6.6-10.5 [facility] ([place]) Comment on above: Performed By: #### C BC, ADIFF, PRO, BMP, ANEU, GFR #### [place] [address] RBC 4.78 10 6/mcL Normal 4.10-5.30 [facility] ([place]) Comment on above: Performed By: #### C BC, ADIFF, PRO, BMP, ANEU, GFR #### [place] [address] WBC 11.3 10 3/mcL High 4.5-10.8 [facility] ([place]) Comment on above: Performed By: #### C BC, ADIFF, PRO, BMP, ANEU, GFR #### [place] [address] LABORATORYOrdered By: SYSTEM SYSTEM on 01-21-2024 Calcium [...] (S/P/Bld) [Vol rate/Area] ml/min/1.73sqm Invalid Interpretation Code [employer] S Comment on above: Interpretive Data: [...] (S/P/Bld) [Vol rate/Area] ml/min/1.73sqm Invalid Interpretation Code [employer] S Comment on above: Interpretive Data: [...] 31.3 pg Normal 27.0 - 33.0 pg Workflow SS MCHC 33.8 G/dL Normal 32.0 [...] test) Ql (U) Negative (01/21/24 11:50 AM) [facility] Work Phone: LABORATORYOrdered By: Delmar Long on 01-21-2024 PT Coag (PPP) [Time] 12.6 s Normal 9.0 - 1 4.2 seconds [facility] Comment on above: Interpretive Data: E ffective 05/17/08, Protime results may be affected by some antibiotics (i.e. Ciprofloxacin, Azithromycin, Bactrim) which may potentiate the action of oral anticoagulants, with further increases in Protime/INR. PT International Ratio 1.1 ratio Invalid Interpretation Code [employer] Comment on above: Interpretive Data: Charlie ambrosio [employer] (CHEST, 1991, 102:312S-25S) recommended therapeutic range for oral anticoagulant therapy is: LOW RISK: Prophylaxis of venous thrombosis INR: 2.0-3.0 Treatment of pulmonary embolism 2.0-3.0 Prevention of systemic embolism 2.0-3.0 HIGH RISK: Mechanical prosthetic valves 2.5-3.5 PROon 01-21-2024 INR Coag (PPP) [Relative time] 1.1 {INR} Normal [facility] ([place]) Comment on above: Result Comment: [employer] (CHEST, 1992, 102:312S-25S) recommended therapeutic range for oral anticoagulant therapy is: LOW RISK: Prophylaxis of venous thrombosis INR: 2.0-3.0 Treatment of pulmonary embolism 2.0-3.0 Prevention of systemic embolism 2.0-3.0 HIGH RISK: Mechanical prosthetic valves 2.5-3.5 Performed By: #### C BC, ADIFF, PRO, BMP, ANEU, GFR #### [place] [id number] [place] [address] PT Coag (PPP) [Time] 12.6 s Normal 9.0-14.2 [facility] ([place]) Comment on above: Result Comment: Effe ctive 05/17/08, Protime results may be affected by some antibiotics (i.e. Ciprofloxacin, Azithromycin, Bactrim) which may potentiate the action of oral anticoagulants, with further increases in Protime/INR. Performed By: #### C BC, ADIFF, PRO, BMP, ANEU, GFR #### [address] [address] [employer] Cytology Reporton 2023 [employer] Cytology Report . Pathology Reports Accession: Collected Date/Time: Received Date/Time: Pathologist: [id number] 12/08/2023 16:49 EST 12/08/2023 18:00 EST TRICIA CAST MD [employer] Cytology Report SPECIMEN: Specimen Description: Liquid Prep [...] Reports Accession: Collected Date/Time: Received Date/Time: Pathologist: [id number] 12/08/2023 16:49 EST 12/08/2023 18:00 EST TRICIA CAST MD COMMENT: This Pap Test was successfully processed and evaluated with the assistance of the [employer] Test Imaging System. Electronically Signed by Pathology report verified by [facility] Screened by: DANY DW Electronically signed by TRICIA CAST Sign-Out Date: 12/12/2023 17:27 Performing Lab: [facility], [address] [place] [address] Pathology Dept Disclaimer The Pap test is a screening test for cervical cancer. As evidenced by published data, it is subject to both inherent false negative and false positive results. Your patient's results should be interpreted in context with pertinent clinical history including gynecological examination. Normal [facility] ([place]) HPVon 12-10-2023 HPV Interp Normal See Interp HPVN [facility] ([place]) Comment on above: Order Comment: Order placed by AP_HPV_ORDER rule from [id number] Result Comment: High Risk HPV Typing: NEGATIVE [...] BC, ADIFF, PRO, BMP, ANEU, GFR #### [place] [address] HPV Source Cervix Normal [facility] ([place]) Comment on above: Order Comment: Order placed by AP_HPV_ORDER rule from [id number] Performed By: #### C BC, ADIFF, PRO, BMP, ANEU, GFR #### [place] [address] DRUGUon 12-08-2023 Amphetamine (u) Negative Normal Negative [facility] ([place]) Comment on above: Performed By: #### U OXYS, DRUGU #### [place] [address] Barbiturate (u) Negative Normal Negative [facility] ([place]) Comment on above: Performed By: #### U OXYS, DRUGU #### [place] [address] Benzodiazepine (u) Negative Normal Negative [facility] Comment on above: Performed By: #### U OXYS, DRUGU #### [place] [address] Cannabinoid (u) Positive Abnormal Negative [facility] ([place] Comment on above: Performed By: #### U OXYS, DRUGU #### [place] [address] Cocaine Ql (U) Negative Normal Negative [facility] ([place] Comment on above: Performed By: #### U OXYS, DRUGU #### [place] [address] Fentanyl (u) Negative Normal Negative [facility] ([place]) Comment on above: Result Comment: Test ing has been performed FOR MEDICAL PURPOSES ONLY. Performed By: #### U OXYS, DRUGU #### [place] [address] Methadone Ql (U) Negative Normal Negative [facility] ([place]) Comment on above: Performed By: #### U OXYS, DRUGU #### [address] [address] Opiate (u) Negative Normal Negative [facility] ([place] Comment on above: Performed By: #### U OXYS, DRUGU #### [address] [address] Oxycodone (u) Negative Normal Negative [facility] ([place] Comment on above: Result Comment: Test ing has been performed FOR MEDICAL PURPOSES ONLY. Performed By: #### U OXYS, DRUGU #### [address] [address] PCP (u) Negative Normal Negative [facility] ([place] Comment on above: Performed By: #### U OXYS, DRUGU #### [address] [address] Propoxyphene (u) Negative Normal Negative [facility] ([place] Comment on above: Performed By: #### U OXYS, DRUGU #### [address] [address] U pH Drug Scrn 8.0 Normal 5.0-8.0 [facility] ([place]) Comment on above: Performed By: #### U OXYS, DRUGU #### [address] [address] Urine Drugs screened: See Below Normal [facility] ([place]) Comment on above: Result Comment: This [...] Performed By: #### U OXYS, DRUGU #### [place] [address] LABORATORYOrdered By: Alanna Russo on 12-08-2023 Amphetamines [...] NEPHROSTOMY EXCHANGE ORIGINAL EXAMINATION: IR NEPHROSTOMY TUBE [id number]/22/2023 3:02 pm IR NEPHROSTOMY TUBE CHANGE HISTORY: [...] 4:31:01 PM Ordering Provider: FLIP MARTIN Normal [facility] ([place]) DRUGUon 07-30-2023 Amphetamine (u) Negative Normal Negative [facility] ([place]) Comment on above: Performed By: #### U OXYS, DRUGU #### [facility] [address] [place] [address] Barbiturate (u) Negative Normal Negative [facility] ([place] Comment on above: Performed By: #### U OXYS, DRUGU #### [facility] [address] [place] [address] Benzodiazepine (u) Negative Normal Negative [facility] Comment on above: Performed By: #### U OXYS, DRUGU #### [address] [address] Cannabinoid (u) Positive Abnormal Negative [facility] ([place] Comment on above: Performed By: #### U OXYS, DRUGU #### [address] [address] Cocaine Ql (U) Negative Normal Negative [facility] ([place] Comment on above: Performed By: #### U OXYS, DRUGU #### [address] [address] Fentanyl (u) Negative Normal Negative [facility] ([place] Comment on above: Result Comment: Test ing has been performed FOR MEDICAL PURPOSES ONLY. Performed By: #### U OXYS, DRUGU #### [address] [address] Methadone Ql (U) Negative Normal Negative [facility] ([place] Comment on above: Performed By: #### U OXYS, DRUGU #### [address] [address] Opiate (u) Positive Abnormal Negative [facility] ([place] Comment on above: Performed By: #### U OXYS, DRUGU #### [address] [address] Oxycodone (u) Positive Abnormal Negative [facility] ([place] Comment on above: Result Comment: Test ing has been performed FOR MEDICAL PURPOSES ONLY. Performed By: #### U OXYS, DRUGU #### [address] [address] PCP (u) Negative Normal Negative [facility] ([place] Comment on above: Performed By: #### U OXYS DRUGU #### [address] [address] Propoxyphene (u) Negative Normal Negative [facility] ([place] Comment on above: Performed By: #### U OXYYesenia DRUGU #### [place] [id number] [place] [address] U pH Drug Scrn 5.5 Normal 5.0-8.0 [facility] ([place] Comment on above: Performed By: #### U OXYS DRUGU #### [place] [id number] [place] [address] Urine Drugs screened: See Below Normal [facility] ([place]) Comment on above: Result Comment: This drug [...] Performed By: #### U ADRIAN DRUGU #### [address] [address] IR TUNNELED CATHETER INSERTI ON/PORTon 07-28-2023 IR TUNNELED CATHETER INSERTION/PORT ORIGINAL HISTORY: Cervical cancer with port unable to aspirate blood. Fibrin sheath confirmed on venogram 07/24/2023. Port placed 05/02/[address] Mason PROCEDURE: 1. Ultrasound guidance for venous access 2. Port venogram under fluoroscopy 3. Fibrin sheath stripping of right venous chest port WOOD REPATCHER: Dr. Aparicio EMBROIDERER: None MATERIALS: 6 Fr sheath Snare J [...] 07/28/2023 8:00:17 PM Ordering Provider: BRITTNI LU [facility] ([place]) IR NEPHROSTOMY TUBE CHANGE L EFT W/GUIDEon [...] to nephrostomy catheter under fluoroscopy LATERALITY: Left WOOD REPATCHER: Dr. Aparicio EMBROIDERER: None The procedure, risks, and alternatives, were discussed and all questions were answered. Informed consent obtained. Maximal sterile barrier technique, hand hygiene, skin prep, and sterile ultrasound techniques (if used) utilized. Percutaneous site was sterilely prepped and draped. Time out performed. Maxillofacial Prosthodontist image demonstrates nephroureteral catheter. Contrast injection through [...] unchanged MATERIALS: 10 Fr drainage catheter Amplatz Harbeson bag ANESTHESIA: General anesthesia FLUORO: 1.5 min [...] 07/26/2023 1:06:17 PM Ordering Provider: FLIP Aragon [facility] ([place]) .Auto Diffon 07-16-2023 Basophil, Absolute 0.1 10 3/mcL Normal 0.0-0.3 [facility]) Comment on above: Performed By: #### C GABBY PERESIFF, PRO, BMP, ANEU, GFR #### [address] [address] Basophils/100 WBC (Bld) 1.4 % Normal 0.0-2.5 A [facility] ([place]) Comment on above: Performed By: #### C LARISA, ADIFF, PRO, BMP, ANEU, GFR #### [address] [address] Eosinophil, Absolute 0.6 10 3/mcL Normal 0.0-0.7 [facility] ([place]) Comment on above: Performed By: #### C BC, ADIFF, PRO, BMP, ANEU, GFR #### [address] [address] Eosinophils/100 WBC (Bld) 7.7 % High 0.0-6.0 [facility] ([place] Comment on above: Performed By: #### C BC, ADIFF, PRO, BMP, ANEU, GFR #### [address] [address] Lymphocyte, Absolute 2.1 10 3/mcL Normal 0.9-4.3 [facility] ([place]) Comment on above: Performed By: #### C BC, ADIFF, PRO, BMP, ANEU, GFR #### [address] [address] Lymphocytes/100 WBC (Bld) 26.7 % Normal 20.0-40.0 [facility] ([place]) Comment on above: Performed By: #### C BC, ADIFF, PRO, BMP, ANEU, GFR #### [address] [address] Monocyte, Absolute 1.0 10 3/mcL Normal 0.1-1.4 [facility] ([place]) Comment on above: Performed By: #### C BC, ADIFF, PRO, BMP, ANEU, GFR #### [address] [address] Monocytes/100 WBC (Bld) 12.7 % Normal 2.0-13.0 [facility] ([place] Comment on above: Performed By: #### C BC, ADIFF, PRO, BMP, ANEU, GFR #### [address] [address] Neutrophils/100 WBC (Bld) 51.5 % Normal 50.0-75.0 [facility] ([place] Comment on above: Performed By: #### C BC, ADIFF, PRO, BMP, ANEU, GFR #### [address] [address] .GFRon 07-16-2023 GFR >60 Normal [facility] ([place]) Comment on above: Result Comment: GFR [...] BC, ADIFF, PRO, BMP, ANEU, GFR #### [address] [address] GFR Non- >60 Normal [facility] ([place] Comment on above: Result Comment: GFR Population [...] BC, ADIFF, PRO, BMP, ANEU, GFR #### [address] [address] .NEUABSon 07-16-2023 Neutrophil, Absolute 4.0 10 3/mcL Normal 2.3-8.1 [facility] ([place] Comment on above: Performed By: #### C BC, ADIFF, PRO, BMP, ANEU, GFR #### [address] [address] CBCon 07-16-2023 Erythrocyte distribution width (RBC) [Ratio] 15.7 % High 11.5-15.5 [facility] ([place] Comment on above: Performed By: #### C BC, ADIFF, PRO, BMP, ANEU, GFR #### [place] [address] Hematocrit (Bld) [Volume fraction] 36.9 % Normal 34.0-46.0 [facility] ([place] Comment on above: Performed By: #### C BC, ADIFF, PRO, BMP, ANEU, GFR #### [place] [address] Hgb 12.3 G/dL Normal 12.0-16.0 [facility] ([place] Comment on above: Performed By: #### C BC, ADIFF, PRO, BMP, ANEU, GFR #### [place] [address] MCH (RBC) [Entitic mass] 30.1 pg Normal 27.0-33.0 [facility] ([place] Comment on above: Performed By: #### C BC, ADIFF, PRO, BMP, ANEU, GFR #### [place] [address] MCHC 33.3 G/dL Normal 32.0-36.0 [facility] ([place] Comment on above: Performed By: #### C BC, ADIFF, PRO, BMP, ANEU, GFR #### [place] [address] MCV (RBC) [Entitic vol] 90.3 fL Normal 80.0-99.0 [facility] ([place] Comment on above: Performed By: #### C BC, ADIFF, PRO, BMP, ANEU, GFR #### [place] [address] Platelet 396 10 3/mcL Normal 150-450 [facility] ([place] Comment on above: Performed By: #### C BC, ADIFF, PRO, BMP, ANEU, GFR #### [place] [address] Platelet mean volume (Bld) [Entitic vol] 7.1 fL Normal 6.6-10.5 [facility] ([place] Comment on above: Performed By: #### C BC, ADIFF, PRO, BMP, ANEU, GFR #### [address] [address] RBC 4.08 10 6/mcL Low 4.10-5.30 [facility] ([place] Comment on above: Performed By: #### C BC, ADIFF, PRO, BMP, ANEU, GFR #### [place] [address] WBC 7.9 10 3/mcL Normal 4.5-10.8 [facility] ([place] Comment on above: Performed By: #### C BC, ADIFF, PRO, BMP, ANEU, GFR #### [place] [id number] CMPon 07-16-2022 ALT/SGPT <7 Low 10-49 [facility] ([place] Comment on above: Performed By: #### C BC, ADIFF, PRO, BMP, ANEU, GFR #### [place] [id number] Bili Total <0.20 Normal 0.20-1.20 [facility] ([place] Comment on above: Result Comment: Use of this assay is not recommended for patients undergoing treatment with eltrombopag due to the potential for falsely elevated results. Performed By: #### C BC, ADIFF, PRO, BMP, ANEU, GFR #### [place] [address] BUN/Creatinine Ratio Unable to Calculate Normal 10.0-2 2.0 [facility] ([place]) Comment on above: Result Comment: Unab le to calculate this test result accurately. Results used to calculate this test are outside the reportable range. Performed By: #### C BC, ADIFF, PRO, BMP, ANEU, GFR #### [place] [id number] Urea nitrogen [Mass/Vol] mg/dL Low 8.0-22.0 [facility] ([place]) Comment on above: Performed By: #### C BC, ADIFF, PRO, BMP, ANEU, GFR #### [place] [address] Albumin Level 2.8 G/dL Low 3.2-4.8 [facility] ([place]) Comment on above: Performed By: #### C BC, ADIFF, PRO, BMP, ANEU, GFR #### [address] [address] Albumin/Globulin [Mass ratio] 0.8 {ratio} Low 0.9-1.6 [facility] ([place]) Comment on above: Performed By: #### C BC, ADIFF, PRO, BMP, ANEU, GFR #### [address] [address] ALP [Catalytic activity/Vol] 83 U/L Normal 38-126 [facility] ([place]) Comment on above: Performed By: #### C BC, ADIFF, PRO, BMP, ANEU, GFR #### [address] [address] AST [Catalytic activity/Vol] 9 U/L Normal 8-34 [facility] ([place]) Comment on above: Performed By: #### C BC, ADIFF, PRO, BMP, ANEU, GFR #### [address] [address] Calcium [Mass/Vol] 9.4 mg/dL Normal 8.7-10.4 [facility] [place] Comment on above: Performed By: #### C BC, ADIFF, PRO, BMP, ANEU, GFR #### [address] [address] Chloride [Moles/Vol] 103 mmol/L Normal 98-110 [facility] ([place]) Comment on above: Performed By: #### C BC, ADIFF, PRO, BMP, ANEU, GFR #### [address] [address] CO2 [Moles/Vol] 28 mmol/L Normal 22-32 [facility] ([place]) Comment on above: Performed By: #### C BC, ADIFF, PRO, BMP, ANEU, GFR #### [address] [address] Creatinine [Mass/Vol] 0.76 mg/dL Normal 0.50-1.20 [facility] ([place]) Comment on above: Performed By: #### C BC, ADIFF, PRO, BMP, ANEU, GFR #### [address] [address] Electrolyte Balance 7.0 mEq/L Normal 4.0-15.0 [facility] ([place]) Comment on above: Performed By: #### C BC, ADIFF, PRO, BMP, ANEU, GFR #### [address] [address] Globulin 3.3 G/dL Normal 1.5-3.8 [facility] ([place] Comment on above: Performed By: #### C BC, ADIFF, PRO, BMP, ANEU, GFR #### [address] [address] Glucose [Mass/Vol] 98 mg/dL Normal 70-110 [facility] [place] Comment on above: Performed By: #### C BC, ADIFF, PRO, BMP, ANEU, GFR #### [place] [phone] Potassium [Moles/Vol] 4.5 mmol/L Normal 3.5-5.0 [facility] ([place] Comment on above: Performed By: #### C BC, ADIFF, PRO, BMP, ANEU, GFR #### [place] [id number] Sodium [Moles/Vol] 138 mmol/L Normal 136-145 [facility] [place] Comment on above: Performed By: #### C BC, ADIFF, PRO, BMP, ANEU, GFR #### [place] [address] Total Protein 6.1 G/dL Normal 5.7-8.2 [facility] ([place]) Comment on above: Result Comment: No te - New Reference Range in effect 20 Performed By: #### C BC, ADIFF, PRO, BMP, ANEU, GFR #### [address] [address] LABORATORYOrdered By: SYSTEM SYSTEM on 07-16-2023 Albumin [...] 07-16-2023 Magnesium [Mass/Vol] 2.0 mg/dL Normal 1.6-2.4 [facility] ([place]) Comment on above: Performed By: #### C BC, ADIFF, PRO, BMP, ANEU, GFR #### [address] [address] PHOSon 07-16-2023 Phosphate [Mass/Vol] 5.8 mg/dL High 2.4-5.1 [facility] ([place]) Comment on above: Result Comment: No te - New Reference Range in effect 20 Performed By: #### C BC, ADIFF, PRO, BMP, ANEU, GFR #### [address] [address] .Auto Diffon 07-15-2023 Basophil, Absolute 0.1 10 3/mcL Normal 0.0-0.3 [facility] ([place] Comment on above: Performed By: #### C BC, ADIFF, PRO, BMP, ANEU, GFR #### [address] [address] Basophils/100 WBC (Bld) 1.2 % Normal 0.0-2.5 [facility] ([place]) Comment on above: Performed By: #### C BC, ADIFF, PRO, BMP, ANEU, GFR #### [address] [address] Eosinophil, Absolute 0.6 10 3/mcL Normal 0.0-0.7 [facility] ([place]) Comment on above: Performed By: #### C BC, ADIFF, PRO, BMP, ANEU, GFR #### [address] [address] Eosinophils/100 WBC (Bld) 7.1 % High 0.0-6.0 [facility] ([place] Comment on above: Performed By: #### C BC, ADIFF, PRO, BMP, ANEU, GFR #### [address] [address] Lymphocyte, Absolute 2.0 10 3/mcL Normal 0.9-4.3 [facility] ([place] Comment on above: Performed By: #### C BC, ADIFF, PRO, BMP, ANEU, GFR #### [address] [address] Lymphocytes/100 WBC (Bld) 25.6 % Normal 20.0-40.0 [facility] ([place] Comment on above: Performed By: #### C BC, ADIFF, PRO, BMP, ANEU, GFR #### [address] [address] Monocyte, Absolute 1.1 10 3/mcL Normal 0.1-1.4 [facility] ([place] Comment on above: Performed By: #### C BC, ADIFF, PRO, BMP, ANEU, GFR #### [address] [address] Monocytes/100 WBC (Bld) 14.0 % High 2.0-13.0 [facility] ([place]) Comment on above: Performed By: #### C BC, ADIFF, PRO, BMP, ANEU, GFR #### [address] [address] Neutrophils/100 WBC (Bld) 52.1 % Normal 50.0-75.0 [facility] ([place] Comment on above: Performed By: #### C BC, ADIFF, PRO, BMP, ANEU, GFR #### [address] [address] .GFRon 07-15-2023 GFR >60 Normal [facility] ([place] Comment on above: Result Comment: GFR Population [...] BC, ADIFF, PRO, BMP, ANEU, GFR #### [address] [address] GFR Non- >60 Normal [facility] ([place] Comment on above: Result Comment: GFR Population [...] BC, ADIFF, PRO, BMP, ANEU, GFR #### [address] [address] .NEUABSon 07-15-2023 Neutrophil, Absolute 4.0 10 3/mcL Normal 2.3-8.1 [facility] ([place] Comment on above: Performed By: #### C BC, ADIFF, PRO, BMP, ANEU, GFR #### [address] [address] CBCon 07-15-2023 Erythrocyte distribution width (RBC) [Ratio] 15.2 % Normal 11.5-15.5 [facility] ([place] Comment on above: Performed By: #### C BC, ADIFF, PRO, BMP, ANEU, GFR #### [address] [address] Hematocrit (Bld) [Volume fraction] 35.2 % Normal 34.0-46.0 [facility] ([place] Comment on above: Performed By: #### C BC, ADIFF, PRO, BMP, ANEU, GFR #### [place] [address] Hgb 11.9 G/dL Low 12.0-16.0 [facility] ([place] Comment on above: Performed By: #### C BC, ADIFF, PRO, BMP, ANEU, GFR #### [place] [address] MCH (RBC) [Entitic mass] 30.3 pg Normal 27.0-33.0 [facility] ([place] Comment on above: Performed By: #### C BC, ADIFF, PRO, BMP, ANEU, GFR #### [place] [address] MCHC 33.7 G/dL Normal 32.0-36.0 [facility] ([place] Comment on above: Performed By: #### C BC, ADIFF, PRO, BMP, ANEU, GFR #### [place] [address] MCV (RBC) [Entitic vol] 89.9 fL Normal 80.0-99.0 [facility] ([place]) Comment on above: Performed By: #### C BC, ADIFF, PRO, BMP, ANEU, GFR #### [place] [address] Platelet 358 10 3/mcL Normal 150-450 [facility] ([place] Comment on above: Performed By: #### C BC, ADIFF, PRO, BMP, ANEU, GFR #### [place] [address] Platelet mean volume (Bld) [Entitic vol] 6.9 fL Normal 6.6-10.5 [facility] ([place] Comment on above: Performed By: #### C BC, ADIFF, PRO, BMP, ANEU, GFR #### [place] [address] RBC 3.92 10 6/mcL Low 4.10-5.30 [facility] ([place] Comment on above: Performed By: #### C BC, ADIFF, PRO, BMP, ANEU, GFR #### [address] [address] WBC 7.7 10 3/mcL Normal 4.5-10.8 [facility] ([place] Comment on above: Performed By: #### C BC, ADIFF, PRO, BMP, ANEU, GFR #### [address] [address] CMPon 07-15-2023 Albumin Level 2.8 G/dL Low 3.2-4.8 [facility] ([place]) Comment on above: Performed By: #### C BC, ADIFF, PRO, BMP, ANEU, GFR #### [place] [address] Albumin/Globulin [Mass ratio] 0.9 {ratio} Normal 0.9-1.6 [facility] ([place] Comment on above: Performed By: #### C BC, ADIFF, PRO, BMP, ANEU, GFR #### [address] [address] ALP [Catalytic activity/Vol] 82 U/L Normal 38-126 [facility] ([place] Comment on above: Performed By: #### C BC, ADIFF, PRO, BMP, ANEU, GFR #### [place] [address] ALT/SGPT <8 Low 10-49 [facility] ([place] Comment on above: Performed By: #### C BC, ADIFF, PRO, BMP, ANEU, GFR #### [address] [address] AST [Catalytic activity/Vol] 9 U/L Normal 8-34 [facility] ([place] Comment on above: Performed By: #### C BC, ADIFF, PRO, BMP, ANEU, GFR #### [address] [address] Bili Total 0.20 mg/dL Normal 0.20-1.20 [facility] ([place]) Comment on above: Result Comment: Use of this assay is not recommended for patients undergoing treatment with eltrombopag due to the potential for falsely elevated results. Performed By: #### C BC, ADIFF, PRO, BMP, ANEU, GFR #### [place] [address] BUN/Creatinine Ratio 8.1 ratio Low 10.0-22.0 [facility] ([place] Comment on above: Performed By: #### C BC, ADIFF, PRO, BMP, ANEU, GFR #### [place] [address] Calcium [Mass/Vol] 9.3 mg/dL Normal 8.7-10.4 [facility] [place] Comment on above: Performed By: #### C BC, ADIFF, PRO, BMP, ANEU, GFR #### [place] [address] Chloride [Moles/Vol] 104 mmol/L Normal 98-110 [facility] ([place]) Comment on above: Performed By: #### C BC, ADIFF, PRO, BMP, ANEU, GFR #### [place] [address] CO2 [Moles/Vol] 25 mmol/L Normal 22-32 [facility] ([place] Comment on above: Performed By: #### C BC, ADIFF, PRO, BMP, ANEU, GFR #### [place] [address] Creatinine [Mass/Vol] 0.74 mg/dL Normal 0.50-1.20 [facility] ([place] Comment on above: Performed By: #### C BC, ADIFF, PRO, BMP, ANEU, GFR #### [place] [id number] Electrolyte Balance 7.0 mEq/L Normal 4.0-15.0 [facility] ([place]) Comment on above: Performed By: #### C BC, ADIFF, PRO, BMP, ANEU, GFR #### [place] [id number] Globulin 3.1 G/dL Normal 1.5-3.8 [facility] ([place] Comment on above: Performed By: #### C BC, ADIFF, PRO, BMP, ANEU, GFR #### [place] [address] Glucose [Mass/Vol] 96 mg/dL Normal 70-110 [facility] [place] Comment on above: Performed By: #### C BC, ADIFF, PRO, BMP, ANEU, GFR #### [place] [id number] Potassium [Moles/Vol] 4.4 mmol/L Normal 3.5-5.0 [facility] ([place] Comment on above: Performed By: #### C BC, ADIFF, PRO, BMP, ANEU, GFR #### [place] [address] Sodium [Moles/Vol] 136 mmol/L Normal 136-145 [facility] [place] Comment on above: Performed By: #### C BC, ADIFF, PRO, BMP, ANEU, GFR #### [place] [address] Total Protein 5.9 G/dL Normal 5.7-8.2 [facility] ([place]) Comment on above: Result Comment: No te - New Reference Range in effect 20 Performed By: #### C BC, ADIFF, PRO, BMP, ANEU, GFR #### [place] [address] Urea nitrogen [Mass/Vol] 6.0 mg/dL Low 8.0-22.0 [facility] ([place] Comment on above: Performed By: #### C BC, ADIFF, PRO, BMP, ANEU, GFR #### [place] [address] LABORATORYOrdered By: SYSTEM SYSTEM on 07-15-2023 Albumin [...] 07-15-2023 Magnesium [Mass/Vol] 2.0 mg/dL Normal 1.6-2.4 [facility] ([place] Comment on above: Performed By: #### C BC, ADIFF, PRO, BMP, ANEU, GFR #### [address] [address] PHOSon 07-15-2023 Phosphate [Mass/Vol] 5.0 mg/dL Normal 2.4-5.1 [facility] ([place] Comment on above: Result Comment: No te - New Reference Range in effect 20 Performed By: #### C BC, ADIFF, PRO, BMP, ANEU, GFR #### [address] [address] .Auto Diffon 07-14-2023 Basophil, Absolute 0.1 10 3/mcL Normal 0.0-0.3 [facility] ([place] Comment on above: Performed By: #### C BC, ADIFF, PRO, BMP, ANEU, GFR #### [address] [address] Basophils/100 WBC (Bld) 0.8 % Normal 0.0-2.5 [facility] ([place]) Comment on above: Performed By: #### C BC, ADIFF, PRO, BMP, ANEU, GFR #### [address] [address] Eosinophil, Absolute 0.5 10 3/mcL Normal 0.0-0.7 [facility] ([place]) Comment on above: Performed By: #### C BC, ADIFF, PRO, BMP, ANEU, GFR #### [address] [address] Eosinophils/100 WBC (Bld) 6.0 % Normal 0.0-6.0 [facility] ([place] Comment on above: Performed By: #### C BC, ADIFF, PRO, BMP, ANEU, GFR #### [address] [address] Lymphocyte, Absolute 1.6 10 3/mcL Normal 0.9-4.3 [facility] ([place]) Comment on above: Performed By: #### C BC, ADIFF, PRO, BMP, ANEU, GFR #### [address] [address] Lymphocytes/100 WBC (Bld) 21.0 % Normal 20.0-40.0 [facility] ([place] Comment on above: Performed By: #### C BC, ADIFF, PRO, BMP, ANEU, GFR #### [address] [address] Monocyte, Absolute 1.1 10 3/mcL Normal 0.1-1.4 [facility] ([place] Comment on above: Performed By: #### C BC, ADIFF, PRO, BMP, ANEU, GFR #### [address] [address] Monocytes/100 WBC (Bld) 14.0 % High 2.0-13.0 [facility] ([place] Comment on above: Performed By: #### C BC, ADIFF, PRO, BMP, ANEU, GFR #### [address] [address] Neutrophils/100 WBC (Bld) 58.2 % Normal 50.0-75.0 [facility] ([place] Comment on above: Performed By: #### C BC, ADIFF, PRO, BMP, ANEU, GFR #### [address] [address] .GFRon 07-14-2023 GFR Non- >60 Normal [facility] ([place] Comment on above: Result Comment: GFR Population [...] Performed By: #### G FR, BMP #### [place] [address] GFR >60 Normal [facility] ([place] Comment on above: Result Comment: GFR Population [...] Performed By: #### Deondre FR, BMP #### [place] [address] .NEUABSon 07-14-2023 Neutrophil, Absolute 4.5 10 3/mcL Normal 2.3-8.1 [facility] ([place] Comment on above: Performed By: #### C BC, ADIFF, PRO, BMP, ANEU, GFR #### [place] [address] CBCon 07-14-2023 Erythrocyte distribution width (RBC) [Ratio] 15.4 % Normal 11.5-15.5 [facility] ([place] Comment on above: Performed By: #### C BC, ADIFF, PRO, BMP, ANEU, GFR #### [place] [address] Hematocrit (Bld) [Volume fraction] 36.1 % Normal 34.0-46.0 [facility] ([place] Comment on above: Performed By: #### C BC, ADIFF, PRO, BMP, ANEU, GFR #### [place] [address] Hgb 12.0 G/dL Normal 12.0-16.0 [facility] ([place] Comment on above: Performed By: #### C BC, ADIFF, PRO, BMP, ANEU, GFR #### [place] [address] MCH (RBC) [Entitic mass] 29.8 pg Normal 27.0-33.0 [facility] ([place] Comment on above: Performed By: #### C BC, ADIFF, PRO, BMP, ANEU, GFR #### [place] [address] MCHC 33.3 G/dL Normal 32.0-36.0 [facility] ([place] Comment on above: Performed By: #### C BC, ADIFF, PRO, BMP, ANEU, GFR #### [place] [address] MCV (RBC) [Entitic vol] 89.6 fL Normal 80.0-99.0 [facility] ([place] Comment on above: Performed By: #### C BC, ADIFF, PRO, BMP, ANEU, GFR #### [place] [address] Platelet 299 10 3/mcL Normal 150-450 [facility] ([place] Comment on above: Performed By: #### C BC, ADIFF, PRO, BMP, ANEU, GFR #### [place] [address] Platelet mean volume (Bld) [Entitic vol] 7.7 fL Normal 6.6-10.5 [facility] ([place] Comment on above: Performed By: #### C BC, ADIFF, PRO, BMP, ANEU, GFR #### [place] [address] RBC 4.03 10 6/mcL Low 4.10-5.30 [facility] ([place] Comment on above: Performed By: #### C BC, ADIFF, PRO, BMP, ANEU, GFR #### [place] [address] WBC 7.7 10 3/mcL Normal 4.5-10.8 [facility] ([place] Comment on above: Performed By: #### C BC, ADIFF, PRO, BMP, ANEU, GFR #### [address] [address] CMPon 07-14-2023 BUN/Creatinine Ratio Unable to Calculate Normal 10.0-2 2.0 [facility] ([place]) Comment on above: Result Comment: Unab le to calculate this test result accurately. Results used to calculate this test are outside the reportable range. Performed By: #### Deondre VALDES, BMP #### [place] [id number] Urea nitrogen [Mass/Vol] mg/dL Low 8.0-22.0 [facility] ([place] Comment on above: Performed By: #### Deondre VALDES, BMP #### [place] [id number] Albumin Level 2.8 G/dL Low 3.2-4.8 [facility] ([place] Comment on above: Performed By: #### Deondre VALDES, BMP #### [place] [id number] Albumin/Globulin [Mass ratio] 0.9 {ratio} Normal 0.9-1.6 [facility] ([place] Comment on above: Performed By: #### Deondre VALDES, BMP #### [place] [id number] ALP [Catalytic activity/Vol] 84 U/L Normal 38-126 [facility] ([place] Comment on above: Performed By: #### Deondre VALDES, BMP #### [place] [id number] ALT/SGPT <8 Low 10-49 [facility] ([place] Comment on above: Performed By: #### Deondre VALDES, BMP #### [place] [id number] AST [Catalytic activity/Vol] 11 U/L Normal 8-34 [facility] ([place] Comment on above: Performed By: #### Deondre VALDES, BMP #### [place] [id number] Bili Total 0.30 mg/dL Normal 0.20-1.20 [facility] ([place] Comment on above: Result Comment: Use of this assay is not recommended for patients undergoing treatment with eltrombopag due to the potential for falsely elevated results. Performed By: #### Deondre VALDES, BMP #### [address] [address] Calcium [Mass/Vol] 9.2 mg/dL Normal 8.7-10.4 [facility] [place] Comment on above: Performed By: #### Deondre VALDES, BMP #### [address] [address] Chloride [Moles/Vol] 105 mmol/L Normal 98-110 [facility] ([place] Comment on above: Performed By: #### Deondre VALDES, BMP #### [place] [id number] CO2 [Moles/Vol] 26 mmol/L Normal 22-32 [facility] ([place] Comment on above: Performed By: #### Deondre VALDES, BMP #### [place] [address] Creatinine [Mass/Vol] 0.69 mg/dL Normal 0.50-1.20 [facility] ([place] Comment on above: Performed By: #### Deondre VALDES, BMP #### [address] [address] Electrolyte Balance 8.0 mEq/L Normal 4.0-15.0 [facility] ([place]) Comment on above: Performed By: #### Deondre VALDES, BMP #### [address] [address] Globulin 3.1 G/dL Normal 1.5-3.8 [facility] ([place] Comment on above: Performed By: #### Deondre VALDES, BMP #### [address] [address] Glucose [Mass/Vol] 86 mg/dL Normal 70-110 [facility] [place] Comment on above: Performed By: #### Deondre VALDES, BMP #### [place] [id number] Potassium [Moles/Vol] 4.3 mmol/L Normal 3.5-5.0 [facility] ([place] Comment on above: Performed By: #### Deondre VALDES, BMP #### [facility] [address] [place] [address] Sodium [Moles/Vol] 139 mmol/L Normal 136-145 [facility] [place] Comment on above: Performed By: #### Deondre , ZENOBIA #### [facility] [address] [place] [address] Total Protein 5.9 G/dL Normal 5.7-8.2 [facility] ([place] Comment on above: Result Comment: No te - New Reference Range in effect 20 Performed By: #### Deondre , ZENOBIA #### [facility] [address] [place] [address] LABORATORYOrdered By: SYSTEM SYSTEM on 07-14-2023 Albumin [...] (S/P/Bld) [Vol rate/Area] ml/min/1.73sqm Invalid Interpretation Code [employer] [facility] Comment on above: Interpretive Data: [...] (S/P/Bld) [Vol rate/Area] ml/min/1.73sqm Invalid Interpretation Code [employer] [facility] Comment on above: Interpretive Data: [...] 13.0 % Workflow SS Neutrophils (Bld) [#/Vol] 4.5 103/mcL [...] 07-14-2023 Magnesium [Mass/Vol] 2.0 mg/dL Normal 1.6-2.4 [facility] ([place] Comment on above: Performed By: #### C BC, ADIFF, PRO, BMP, ANEU, GFR #### [place] [address] PHOSon 07-14-2023 Phosphate [Mass/Vol] 5.3 mg/dL High 2.4-5.1 [facility] ([place] Comment on above: Result Comment: No te - New Reference Range in effect 20 Performed By: #### C BC, ADIFF, PRO, BMP, ANEU, GFR #### [address] [address] .Auto Diffon 07-13-2023 Basophil, Absolute 0.1 10 3/mcL Normal 0.0-0.3 [facility] ([place] Comment on above: Performed By: #### C BC, ADIFF, PRO, BMP, ANEU, GFR #### [address] [address] Basophils/100 WBC (Bld) 1.2 % Normal 0.0-2.5 [facility] ([place] Comment on above: Performed By: #### C BC, ADIFF, PRO, BMP, ANEU, GFR #### [address] [address] Eosinophil, Absolute 0.5 10 3/mcL Normal 0.0-0.7 [facility] ([place] Comment on above: Performed By: #### C BC, ADIFF, PRO, BMP, ANEU, GFR #### [address] [address] Eosinophils/100 WBC (Bld) 5.6 % Normal 0.0-6.0 [facility] ([place] Comment on above: Performed By: #### C BC, ADIFF, PRO, BMP, ANEU, GFR #### [address] [address] Lymphocyte, Absolute 1.5 10 3/mcL Normal 0.9-4.3 [facility] ([place] Comment on above: Performed By: #### C BC, ADIFF, PRO, BMP, ANEU, GFR #### [address] [address] Lymphocytes/100 WBC (Bld) 18.4 % Low 20.0-40.0 [facility] ([place] Comment on above: Performed By: #### C BC, ADIFF, PRO, BMP, ANEU, GFR #### [address] [address] Monocyte, Absolute 0.8 10 3/mcL Normal 0.1-1.4 [facility] ([place] Comment on above: Performed By: #### C BC, ADIFF, PRO, BMP, ANEU, GFR #### [address] [address] Monocytes/100 WBC (Bld) 10.2 % Normal 2.0-13.0 [facility] ([place] Comment on above: Performed By: #### C BC, ADIFF, PRO, BMP, ANEU, GFR #### [address] [address] Neutrophils/100 WBC (Bld) 64.6 % Normal 50.0-75.0 [facility] ([place] Comment on above: Performed By: #### C BC, ADIFF, PRO, BMP, ANEU, GFR #### [address] [address] .GFRon 07-13-2023 GFR >60 Normal [facility] ([place] Comment on above: Result Comment: GFR Population [...] BC, ADIFF, PRO, BMP, ANEU, GFR #### [address] [address] GFR Non- >60 Normal [facility] ([place] Comment on above: Result Comment: GFR Population [...] BC, ADIFF, PRO, BMP, ANEU, GFR #### [place] [address] .NEUABSon 07-13-2023 Neutrophil, Absolute 5.2 10 3/mcL Normal 2.3-8.1 [facility] ([place] Comment on above: Performed By: #### C BC, ADIFF, PRO, BMP, ANEU, GFR #### [place] [address] CBCon 07-13-2023 Erythrocyte distribution width (RBC) [Ratio] 15.3 % Normal 11.5-15.5 [facility] ([place] Comment on above: Performed By: #### C BC, ADIFF, PRO, BMP, ANEU, GFR #### [place] [address] Hematocrit (Bld) [Volume fraction] 35.2 % Normal 34.0-46.0 [facility] ([place] Comment on above: Performed By: #### C BC, ADIFF, PRO, BMP, ANEU, GFR #### [place] [address] Hgb 11.5 G/dL Low 12.0-16.0 [facility] ([place] Comment on above: Performed By: #### C BC, ADIFF, PRO, BMP, ANEU, GFR #### [place] [address] MCH (RBC) [Entitic mass] 29.5 pg Normal 27.0-33.0 [facility] ([place] Comment on above: Performed By: #### C BC, ADIFF, PRO, BMP, ANEU, GFR #### [place] [address] MCHC 32.6 G/dL Normal 32.0-36.0 [facility] ([place] Comment on above: Performed By: #### C BC, ADIFF, PRO, BMP, ANEU, GFR #### [place] [address] MCV (RBC) [Entitic vol] 90.5 fL Normal 80.0-99.0 [facility] ([place]) Comment on above: Performed By: #### C BC, ADIFF, PRO, BMP, ANEU, GFR #### [place] [id number] Platelet 295 10 3/mcL Normal 150-450 [facility] ([place]) Comment on above: Performed By: #### C BC, ADIFF, PRO, BMP, ANEU, GFR #### [place] [address] Platelet mean volume (Bld) [Entitic vol] 7.8 fL Normal 6.6-10.5 [facility] ([place]) Comment on above: Performed By: #### C BC, ADIFF, PRO, BMP, ANEU, GFR #### [place] [id number] RBC 3.89 10 6/mcL Low 4.10-5.30 [facility] ([place]) Comment on above: Performed By: #### C BC, ADIFF, PRO, BMP, ANEU, GFR #### [place] [id number] WBC 8.1 10 3/mcL Normal 4.5-10.8 [facility] ([place]) Comment on above: Performed By: #### C BC, ADIFF, PRO, BMP, ANEU, GFR #### [place] [address] CMPon 07-13-2023 BUN/Creatinine Ratio Unable to Calculate Normal 10.0-2 2.0 [facility] ([place]) Comment on above: Result Comment: Unab le to calculate this test result accurately. Results used to calculate this test are outside the reportable range. Performed By: #### C BC, ADIFF, PRO, BMP, ANEU, GFR #### [place] [address] Urea nitrogen [Mass/Vol] mg/dL Low 8.0-22.0 [facility] ([place]) Comment on above: Performed By: #### C BC, ADIFF, PRO, BMP, ANEU, GFR #### [place] [address] Albumin Level 2.6 G/dL Low 3.2-4.8 [facility] ([place]) Comment on above: Performed By: #### C BC, ADIFF, PRO, BMP, ANEU, GFR #### [address] [address] Albumin/Globulin [Mass ratio] 1.0 {ratio} Normal 0.9-1.6 [facility] ([place]) Comment on above: Performed By: #### C BC, ADIFF, PRO, BMP, ANEU, GFR #### [address] [address] ALP [Catalytic activity/Vol] 78 U/L Normal 38-126 [facility] ([place]) Comment on above: Performed By: #### C BC, ADIFF, PRO, BMP, ANEU, GFR #### [address] [address] ALT/SGPT <8 Low 10-49 [facility] ([place] Comment on above: Performed By: #### C BC, ADIFF, PRO, BMP, ANEU, GFR #### [address] [address] AST [Catalytic activity/Vol] 9 U/L Normal 8-34 [facility] ([place] Comment on above: Performed By: #### C BC, ADIFF, PRO, BMP, ANEU, GFR #### [address] [address] Bili Total 0.20 mg/dL Normal 0.20-1.20 [facility] ([place] Comment on above: Result Comment: Use of this assay is not recommended for patients undergoing treatment with eltrombopag due to the potential for falsely elevated results. Performed By: #### C BC, ADIFF, PRO, BMP, ANEU, GFR #### [address] [address] Calcium [Mass/Vol] 8.7 mg/dL Normal 8.7-10.4 [facility] [place] Comment on above: Performed By: #### C BC, ADIFF, PRO, BMP, ANEU, GFR #### [address] [address] Chloride [Moles/Vol] 107 mmol/L Normal 98-110 [facility] ([place]) Comment on above: Performed By: #### C BC, ADIFF, PRO, BMP, ANEU, GFR #### [address] [address] CO2 [Moles/Vol] 25 mmol/L Normal 22-32 [facility] ([place] Comment on above: Performed By: #### C BC, ADIFF, PRO, BMP, ANEU, GFR #### [address] [address] Creatinine [Mass/Vol] 0.73 mg/dL Normal 0.50-1.20 [facility] ([place]) Comment on above: Performed By: #### C BC, ADIFF, PRO, BMP, ANEU, GFR #### [address] [address] Electrolyte Balance 7.0 mEq/L Normal 4.0-15.0 [facility] ([place]) Comment on above: Performed By: #### C BC, ADIFF, PRO, BMP, ANEU, GFR #### [address] [address] Globulin 2.7 G/dL Normal 1.5-3.8 [facility] ([place] Comment on above: Performed By: #### C BC, ADIFF, PRO, BMP, ANEU, GFR #### [address] [address] Glucose [Mass/Vol] 130 mg/dL High 70-110 [facility] [place] Comment on above: Performed By: #### C BC, ADIFF, PRO, BMP, ANEU, GFR #### [address] [address] Potassium [Moles/Vol] 3.9 mmol/L Normal 3.5-5.0 [facility] ([place] Comment on above: Performed By: #### C BC, ADIFF, PRO, BMP, ANEU, GFR #### [address] [address] Sodium [Moles/Vol] 139 mmol/L Normal 136-145 [facility] [place] Comment on above: Performed By: #### C BC, ADIFF, PRO, BMP, ANEU, GFR #### [place] [address] Total Protein 5.3 G/dL Low 5.7-8.2 [facility] ([place]) Comment on above: Result Comment: No te - New Reference Range in effect 20 Performed By: #### C BC, ADIFF, PRO, BMP, ANEU, GFR #### [address] [address] MGon 07-13-2023 Magnesium [Mass/Vol] 1.8 mg/dL Normal 1.6-2.4 [facility] ([place] Comment on above: Performed By: #### C BC, ADIFF, PRO, BMP, ANEU, GFR #### [place] [id number] PHOSon 07-13-2023 Phosphate [Mass/Vol] 4.1 mg/dL Normal 2.4-5.1 [facility] ([place] Comment on above: Result Comment: No te - New Reference Range in effect 20 Performed By: #### C BC, ADIFF, PRO, BMP, ANEU, GFR #### [address] [address] .Auto Diffon 07-12-2023 Basophil, Absolute 0.1 10 3/mcL Normal 0.0-0.3 [facility] ([place] Comment on above: Performed By: #### C BC, ADIFF, PRO, BMP, ANEU, GFR #### [place] [id number] Basophils/100 WBC (Bld) 1.1 % Normal 0.0-2.5 [facility] ([place]) Comment on above: Performed By: #### C BC, ADIFF, PRO, BMP, ANEU, GFR #### [address] [address] Eosinophil, Absolute 0.6 10 3/mcL Normal 0.0-0.7 [facility] ([place]) Comment on above: Performed By: #### C BC, ADIFF, PRO, BMP, ANEU, GFR #### [address] [address] Eosinophils/100 WBC (Bld) 8.1 % High 0.0-6.0 [facility] ([place]) Comment on above: Performed By: #### C BC, ADIFF, PRO, BMP, ANEU, GFR #### [address] [address] Lymphocyte, Absolute 1.4 10 3/mcL Normal 0.9-4.3 [facility] ([place]) Comment on above: Performed By: #### C BC, ADIFF, PRO, BMP, ANEU, GFR #### [address] [address] Lymphocytes/100 WBC (Bld) 18.4 % Low 20.0-40.0 [facility] ([place]) Comment on above: Performed By: #### C BC, ADIFF, PRO, BMP, ANEU, GFR #### [address] [address] Monocyte, Absolute 0.7 10 3/mcL Normal 0.1-1.4 [facility] ([place]) Comment on above: Performed By: #### C BC, ADIFF, PRO, BMP, ANEU, GFR #### [address] [address] Monocytes/100 WBC (Bld) 9.0 % Normal 2.0-13.0 [facility] ([place]) Comment on above: Performed By: #### C BC, ADIFF, PRO, BMP, ANEU, GFR #### [address] [address] Neutrophils/100 WBC (Bld) 63.4 % Normal 50.0-75.0 [facility] ([place]) Comment on above: Performed By: #### C BC, ADIFF, PRO, BMP, ANEU, GFR #### [address] [address] .GFRon 07-12-2023 GFR >60 Normal [facility] ([place]) Comment on above: Result Comment: GFR [...] BC, ADIFF, PRO, BMP, ANEU, GFR #### [address] [address] GFR Non- >60 Normal [facility] ([place] Comment on above: Result Comment: GFR Population [...] BC, ADIFF, PRO, BMP, ANEU, GFR #### [address] [address] .NEUABSon 07-12-2023 Neutrophil, Absolute 4.8 10 3/mcL Normal 2.3-8.1 [facility] ([place] Comment on above: Performed By: #### C BC, ADIFF, PRO, BMP, ANEU, GFR #### [address] [address] CBCon 07-12-2023 Erythrocyte distribution width (RBC) [Ratio] 15.7 % High 11.5-15.5 [facility] ([place] Comment on above: Performed By: #### C BC, ADIFF, PRO, BMP, ANEU, GFR #### [place] [address] Hematocrit (Bld) [Volume fraction] 35.4 % Normal 34.0-46.0 [facility] ([place] Comment on above: Performed By: #### C BC, ADIFF, PRO, BMP, ANEU, GFR #### [place] [address] Hgb 11.6 G/dL Low 12.0-16.0 [facility] ([place] Comment on above: Performed By: #### C BC, ADIFF, PRO, BMP, ANEU, GFR #### [place] [address] MCH (RBC) [Entitic mass] 29.9 pg Normal 27.0-33.0 [facility] ([place] Comment on above: Performed By: #### C BC, ADIFF, PRO, BMP, ANEU, GFR #### [place] [address] MCHC 32.6 G/dL Normal 32.0-36.0 [facility] ([place] Comment on above: Performed By: #### C BC, ADIFF, PRO, BMP, ANEU, GFR #### [place] [address] MCV (RBC) [Entitic vol] 91.5 fL Normal 80.0-99.0 [facility] ([place] Comment on above: Performed By: #### C BC, ADIFF, PRO, BMP, ANEU, GFR #### [place] [address] Platelet 251 10 3/mcL Normal 150-450 [facility] ([place] Comment on above: Performed By: #### C BC, ADIFF, PRO, BMP, ANEU, GFR #### [place] [address] Platelet mean volume (Bld) [Entitic vol] 7.6 fL Normal 6.6-10.5 [facility] ([place] Comment on above: Performed By: #### C BC, ADIFF, PRO, BMP, ANEU, GFR #### [address] [address] RBC 3.87 10 6/mcL Low 4.10-5.30 [facility] ([place] Comment on above: Performed By: #### C BC, ADIFF, PRO, BMP, ANEU, GFR #### [place] [id number] WBC 7.5 10 3/mcL Normal 4.5-10.8 [facility] ([place] Comment on above: Performed By: #### C BC, ADIFF, PRO, BMP, ANEU, GFR #### [place] [id number] CMPon 07-12-2023 Albumin Level 2.5 G/dL Low 3.2-4.8 [facility] ([place] Comment on above: Performed By: #### C BC, ADIFF, PRO, BMP, ANEU, GFR #### [place] [address] Albumin/Globulin [Mass ratio] 0.9 {ratio} Normal 0.9-1.6 [facility] ([place] Comment on above: Performed By: #### C BC, ADIFF, PRO, BMP, ANEU, GFR #### [place] [address] ALP [Catalytic activity/Vol] 78 U/L Normal 38-126 [facility] ([place] Comment on above: Performed By: #### C BC, ADIFF, PRO, BMP, ANEU, GFR #### [place] [address] ALT/SGPT <8 Low 10-49 [facility] ([place] Comment on above: Performed By: #### C BC, ADIFF, PRO, BMP, ANEU, GFR #### [place] [id number] AST [Catalytic activity/Vol] 10 U/L Normal 8-34 [facility] ([place] Comment on above: Performed By: #### C BC, ADIFF, PRO, BMP, ANEU, GFR #### [place] [address] Bili Total <0.20 Normal 0.20-1.20 [facility] ([place] Comment on above: Result Comment: Use of this assay is not recommended for patients undergoing treatment with eltrombopag due to the potential for falsely elevated results. Performed By: #### C BC, ADIFF, PRO, BMP, ANEU, GFR #### [place] [address] BUN/Creatinine Ratio 10.8 ratio Normal 10.0-22.0 [facility] ([place] Comment on above: Performed By: #### C BC, ADIFF, PRO, BMP, ANEU, GFR #### [place] [id number] Calcium [Mass/Vol] 8.6 mg/dL Low 8.7-10.4 [facility] [place] Comment on above: Performed By: #### C BC, ADIFF, PRO, BMP, ANEU, GFR #### [place] [address] Chloride [Moles/Vol] 109 mmol/L Normal 98-110 [facility] ([place] Comment on above: Performed By: #### C BC, ADIFF, PRO, BMP, ANEU, GFR #### [place] [address] CO2 [Moles/Vol] 23 mmol/L Normal 22-32 [facility] ([place] Comment on above: Performed By: #### C BC, ADIFF, PRO, BMP, ANEU, GFR #### [place] [id number] Creatinine [Mass/Vol] 0.74 mg/dL Normal 0.50-1.20 [facility] ([place] Comment on above: Performed By: #### C BC, ADIFF, PRO, BMP, ANEU, GFR #### [place] [id number] Electrolyte Balance 9.0 mEq/L Normal 4.0-15.0 [facility] ([place]) Comment on above: Performed By: #### C BC, ADIFF, PRO, BMP, ANEU, GFR #### [place] [id number] Globulin 2.7 G/dL Normal 1.5-3.8 [facility] ([place] Comment on above: Performed By: #### C BC, ADIFF, PRO, BMP, ANEU, GFR #### [address] [address] Glucose [Mass/Vol] 86 mg/dL Normal 70-110 [facility] [place] Comment on above: Performed By: #### C BC, ADIFF, PRO, BMP, ANEU, GFR #### [address] [address] Potassium [Moles/Vol] 4.4 mmol/L Normal 3.5-5.0 [facility] ([place] Comment on above: Performed By: #### C BC, ADIFF, PRO, BMP, ANEU, GFR #### [address] [address] Sodium [Moles/Vol] 141 mmol/L Normal 136-145 [facility] [place] Comment on above: Performed By: #### C BC, ADIFF, PRO, BMP, ANEU, GFR #### [address] [address] Total Protein 5.2 G/dL Low 5.7-8.2 [facility] ([place] Comment on above: Result Comment: No te - New Reference Range in effect 20 Performed By: #### C BC, ADIFF, PRO, BMP, ANEU, GFR #### [address] [address] Urea nitrogen [Mass/Vol] 8.0 mg/dL Normal 8.0-22.0 [facility] ([place] Comment on above: Performed By: #### C BC, ADIFF, PRO, BMP, ANEU, GFR #### [address] [address] MGon 07-12-2023 Magnesium [Mass/Vol] 2.0 mg/dL Normal 1.6-2.4 [facility] ([place] Comment on above: Performed By: #### C BC, ADIFF, PRO, BMP, ANEU, GFR #### [address] [address] PHOSon 07-12-2023 Phosphate [Mass/Vol] 4.1 mg/dL Normal 2.4-5.1 [facility] ([place] Comment on above: Result Comment: No te - New Reference Range in effect 20 Performed By: #### C BC, ADIFF, PRO, BMP, ANEU, GFR #### [address] [address] .Auto Diffon 07-11-2023 Basophil, Absolute 0.1 10 3/mcL Normal 0.0-0.3 [facility] ([place] Comment on above: Performed By: #### C BC, ADIFF, PRO, BMP, ANEU, GFR #### [address] [address] Basophils/100 WBC (Bld) 0.8 % Normal 0.0-2.5 [facility] ([place] Comment on above: Performed By: #### C BC, ADIFF, PRO, BMP, ANEU, GFR #### [address] [address] Eosinophil, Absolute 0.6 10 3/mcL Normal 0.0-0.7 [facility] ([place] Comment on above: Performed By: #### C BC, ADIFF, PRO, BMP, ANEU, GFR #### [address] [address] Eosinophils/100 WBC (Bld) 5.9 % Normal 0.0-6.0 [facility] ([place] Comment on above: Performed By: #### C BC, ADIFF, PRO, BMP, ANEU, GFR #### [address] [address] Lymphocyte, Absolute 1.3 10 3/mcL Normal 0.9-4.3 [facility] ([place] Comment on above: Performed By: #### C BC, ADIFF, PRO, BMP, ANEU, GFR #### [address] [address] Lymphocytes/100 WBC (Bld) 12.3 % Low 20.0-40.0 [facility] ([place] Comment on above: Performed By: #### C BC, ADIFF, PRO, BMP, ANEU, GFR #### [address] [address] Monocyte, Absolute 1.2 10 3/mcL Normal 0.1-1.4 [facility] ([place] Comment on above: Performed By: #### C BC, ADIFF, PRO, BMP, ANEU, GFR #### [address] [address] Monocytes/100 WBC (Bld) 11.5 % Normal 2.0-13.0 [facility] ([place] Comment on above: Performed By: #### C BC, ADIFF, PRO, BMP, ANEU, GFR #### [address] [address] Neutrophils/100 WBC (Bld) 69.5 % Normal 50.0-75.0 [facility] ([place] Comment on above: Performed By: #### C BC, ADIFF, PRO, BMP, ANEU, GFR #### [address] [address] .GFRon 07-11-2023 GFR Non- >60 Normal [facility] ([place] Comment on above: Result Comment: GFR Population [...] BC, ADIFF, PRO, BMP, ANEU, GFR #### [address] [address] GFR >60 Normal [facility] ([place] Comment on above: Result Comment: GFR Population [...] BC, ADIFF, PRO, BMP, ANEU, GFR #### [place] [address] .NEUABSon 07-11-2023 Neutrophil, Absolute 7.1 10 3/mcL Normal 2.3-8.1 [facility] ([place] Comment on above: Performed By: #### C BC, ADIFF, PRO, BMP, ANEU, GFR #### [place] [address] CBCon 07-11-2023 Erythrocyte distribution width (RBC) [Ratio] 15.7 % High 11.5-15.5 [facility] ([place] Comment on above: Performed By: #### C BC, ADIFF, PRO, BMP, ANEU, GFR #### [place] [address] Hematocrit (Bld) [Volume fraction] 37.2 % Normal 34.0-46.0 [facility] ([place] Comment on above: Performed By: #### C BC, ADIFF, PRO, BMP, ANEU, GFR #### [address] [address] Hgb 12.2 G/dL Normal 12.0-16.0 [facility] ([place] Comment on above: Performed By: #### C BC, ADIFF, PRO, BMP, ANEU, GFR #### [address] [address] MCH (RBC) [Entitic mass] 29.9 pg Normal 27.0-33.0 [facility] ([place] Comment on above: Performed By: #### C BC, ADIFF, PRO, BMP, ANEU, GFR #### [place] [address] MCHC 32.9 G/dL Normal 32.0-36.0 [facility] ([place] Comment on above: Performed By: #### C BC, ADIFF, PRO, BMP, ANEU, GFR #### [place] [address] MCV (RBC) [Entitic vol] 90.8 fL Normal 80.0-99.0 [facility] ([place]) Comment on above: Performed By: #### C BC, ADIFF, PRO, BMP, ANEU, GFR #### [place] [address] Platelet 226 10 3/mcL Normal 150-450 [facility] ([place] Comment on above: Performed By: #### C BC, ADIFF, PRO, BMP, ANEU, GFR #### [place] [address] Platelet mean volume (Bld) [Entitic vol] 7.6 fL Normal 6.6-10.5 [facility] ([place] Comment on above: Performed By: #### C BC, ADIFF, PRO, BMP, ANEU, GFR #### [place] [address] RBC 4.10 10 6/mcL Normal 4.10-5.30 [facility] ([place] Comment on above: Performed By: #### C BC, ADIFF, PRO, BMP, ANEU, GFR #### [place] [address] WBC 10.3 10 3/mcL Normal 4.5-10.8 [facility] ([place] Comment on above: Performed By: #### C BC, ADIFF, PRO, BMP, ANEU, GFR #### [place] [address] CMPon 07-11-2023 Albumin Level 2.7 G/dL Low 3.2-4.8 [facility] ([place] Comment on above: Performed By: #### C BC, ADIFF, PRO, BMP, ANEU, GFR #### [place] [address] Albumin/Globulin [Mass ratio] 1.0 {ratio} Normal 0.9-1.6 [facility] ([place] Comment on above: Performed By: #### C BC, ADIFF, PRO, BMP, ANEU, GFR #### [place] [id number] ALP [Catalytic activity/Vol] 85 U/L Normal 38-126 [facility] ([place] Comment on above: Performed By: #### C BC, ADIFF, PRO, BMP, ANEU, GFR #### [place] [id number] ALT/SGPT <8 Low 10-49 [facility] ([place] Comment on above: Performed By: #### C BC, ADIFF, PRO, BMP, ANEU, GFR #### [place] [id number] AST [Catalytic activity/Vol] 12 U/L Normal 8-34 [facility] ([place] Comment on above: Performed By: #### C BC, ADIFF, PRO, BMP, ANEU, GFR #### [place] [id number] Bili Total 0.20 mg/dL Normal 0.20-1.20 [facility] ([place] Comment on above: Result Comment: Use of this assay is not recommended for patients undergoing treatment with eltrombopag due to the potential for falsely elevated results. Performed By: #### C BC, ADIFF, PRO, BMP, ANEU, GFR #### [place] [address] BUN/Creatinine Ratio 8.3 ratio Low 10.0-22.0 [facility] ([place] Comment on above: Performed By: #### C BC, ADIFF, PRO, BMP, ANEU, GFR #### [place] [address] Calcium [Mass/Vol] 8.7 mg/dL Normal 8.7-10.4 [facility] [place] Comment on above: Performed By: #### C BC, ADIFF, PRO, BMP, ANEU, GFR #### [address] [address] Chloride [Moles/Vol] 107 mmol/L Normal 98-110 [facility] ([place] Comment on above: Performed By: #### C BC, ADIFF, PRO, BMP, ANEU, GFR #### [address] [address] CO2 [Moles/Vol] 24 mmol/L Normal 22-32 [facility] ([place] Comment on above: Performed By: #### C BC, ADIFF, PRO, BMP, ANEU, GFR #### [address] [address] Creatinine [Mass/Vol] 0.84 mg/dL Normal 0.50-1.20 [facility] ([place] Comment on above: Performed By: #### C BC, ADIFF, PRO, BMP, ANEU, GFR #### [address] [address] Electrolyte Balance 7.0 mEq/L Normal 4.0-15.0 [facility] ([place] Comment on above: Performed By: #### C BC, ADIFF, PRO, BMP, ANEU, GFR #### [address] [address] Globulin 2.7 G/dL Normal 1.5-3.8 [facility] ([place] Comment on above: Performed By: #### C BC, ADIFF, PRO, BMP, ANEU, GFR #### [address] [address] Glucose [Mass/Vol] 104 mg/dL Normal 70-110 [facility] [place] Comment on above: Performed By: #### C BC, ADIFF, PRO, BMP, ANEU, GFR #### [address] [address] Potassium [Moles/Vol] 4.2 mmol/L Normal 3.5-5.0 [facility] ([place] Comment on above: Result Comment: Spec imen slightly hemolyzed. Performed By: #### C BC, ADIFF, PRO, BMP, ANEU, GFR #### [place] [id number] Sodium [Moles/Vol] 138 mmol/L Normal 136-145 [facility] [place] Comment on above: Performed By: #### C BC, ADIFF, PRO, BMP, ANEU, GFR #### [place] [address] Total Protein 5.4 G/dL Low 5.7-8.2 [facility] ([place] Comment on above: Result Comment: No te - New Reference Range in effect 20 Performed By: #### C BC, ADIFF, PRO, BMP, ANEU, GFR #### [place] [id number] Urea nitrogen [Mass/Vol] 7.0 mg/dL Low 8.0-22.0 [facility] ([place] Comment on above: Performed By: #### C BC, ADIFF, PRO, BMP, ANEU, GFR #### [place] [id number] MGon 07-11-2023 Magnesium [Mass/Vol] 2.1 mg/dL Normal 1.6-2.4 [facility] ([place] Comment on above: Performed By: #### C BC, ADIFF, PRO, BMP, ANEU, GFR #### [place] [address] PHOSon 07-11-2023 Phosphate [Mass/Vol] 3.4 mg/dL Normal 2.4-5.1 [facility] ([place] Comment on above: Result Comment: No te - New Reference Range in effect 20 Performed By: #### C BC, ADIFF, PRO, BMP, ANEU, GFR #### [place] [address] .Auto Diffon 07-10-2023 Basophil, Absolute 0.0 10 3/mcL Normal 0.0-0.3 [facility] ([place] Comment on above: Performed By: #### U OXYS, DRUGU #### [place] [address] Basophils/100 WBC (Bld) 0.3 % Normal 0.0-2.5 [facility] ([place]) Comment on above: Performed By: #### U OXYYesenia DRUGU #### [address] [address] Eosinophil, Absolute 0.3 10 3/mcL Normal 0.0-0.7 [facility] ([place]) Comment on above: Performed By: #### U OXYYesenia DRUGU #### [address] [address] Eosinophils/100 WBC (Bld) 3.5 % Normal 0.0-6.0 [facility] ([place]) Comment on above: Performed By: #### U OXYDAMIÁN PattersonU #### [address] [address] Lymphocyte, Absolute 0.6 10 3/mcL Low 0.9-4.3 [facility] ([place] Comment on above: Performed By: #### U OXYDAMIÁN PattersonU #### [address] [address] Lymphocytes/100 WBC (Bld) 6.8 % Low 20.0-40.0 [facility] ([place]) Comment on above: Performed By: #### U OXYDAMIÁN PattersonU #### [address] [address] Monocyte, Absolute 0.6 10 3/mcL Normal 0.1-1.4 [facility] ([place]) Comment on above: Performed By: #### U OXYYesenia DRUGU #### [address] [address] Monocytes/100 WBC (Bld) 7.6 % Normal 2.0-13.0 [facility] ([place]) Comment on above: Performed By: #### U OXYYesenia DRUGU #### [address] [address] Neutrophils/100 WBC (Bld) 81.8 % High 50.0-75.0 [facility] ([place]) Comment on above: Performed By: #### U OXYYesenia DRUGU #### [address] [address] .GFRon 07-10-2023 GFR >60 Normal [facility] ([place] Comment on above: Result Comment: GFR Population [...] meters Performed By: #### U OXYSDAMIÁNU #### [address] [address] GFR Non- >60 Normal [facility] ([place] Comment on above: Result Comment: GFR Population [...] mL/min/1.73 square meters Performed By: #### U OXYS DRUGU #### [address] [address] .NEUABSon 07-10-2023 Neutrophil, Absolute 6.7 10 3/mcL Normal 2.3-8.1 [facility] ([place] Comment on above: Performed By: #### U OXYS, DRUGU #### [address] [address] CBCon 07-10-2023 Erythrocyte distribution width (RBC) [Ratio] 16.6 % High 11.5-15.5 [facility] ([place] Comment on above: Performed By: #### U OXYS, DRUGU #### [place] [id number] Hematocrit (Bld) [Volume fraction] 35.0 % Normal 34.0-46.0 [facility] ([place] Comment on above: Performed By: #### U OXYS, DRUGU #### [address] [address] Hgb 10.4 G/dL Low 12.0-16.0 [facility] ([place]) Comment on above: Performed By: #### U OXYS DRUGU #### [place] [id number] MCH (RBC) [Entitic mass] 29.8 pg Normal 27.0-33.0 [facility] ([place]) Comment on above: Performed By: #### U OXYS DRUGU #### [place] [id number] MCHC 29.6 G/dL Low 32.0-36.0 [facility] ([place]) Comment on above: Performed By: #### U OXYS DRUGU #### [place] [id number] MCV (RBC) [Entitic vol] 100.6 fL High 80.0-99.0 A [facility] ([place]) Comment on above: Performed By: #### U OXYS DRUGU #### [place] [id number] Platelet 220 10 3/mcL Normal 150-450 [facility] ([place]) Comment on above: Performed By: #### U OXYS, DRUGU #### [place] [id number] Platelet mean volume (Bld) [Entitic vol] 6.8 fL Normal 6.6-10.5 [facility] ([place]) Comment on above: Performed By: #### U OXYS, DRUGU #### [place] [id number] RBC 3.48 10 6/mcL Low 4.10-5.30 [facility] ([place]) Comment on above: Performed By: #### U OXYS, DRUGU #### [address] [address] WBC 8.2 10 3/mcL Normal 4.5-10.8 [facility] ([place]) Comment on above: Performed By: #### U OXYS, DRUGU #### [address] [address] CMPon 07-10-2023 Albumin Level 3.1 G/dL Low 3.2-4.8 [facility] ([place]) Comment on above: Order Comment: Conta minated - nurse draw - notified Rocio Pantoja 07/10/2023 06:20:49 EDT Performed By: #### U OXYS, DRUGU #### [address] [address] Albumin/Globulin [Mass ratio] 1.1 {ratio} Normal 0.9-1.6 [facility] ([place]) Comment on above: Order Comment: Conta minated - nurse draw - notified Rocio Pantoja 07/10/2023 06:20:49 EDT Performed By: #### U OXYS, DRUGU #### [address] [address] ALP [Catalytic activity/Vol] 95 U/L Normal 38-126 [facility] ([place]) Comment on above: Order Comment: Conta minated - nurse draw - notified Rocio Pantoja 07/10/2023 06:20:49 EDT Performed By: #### U OXYS, DRUGU #### [address] [address] ALT/SGPT <8 Low 10-49 [facility] ([place]) Comment on above: Order Comment: Conta minated - nurse draw - notified Rocio Pantoja 07/10/2023 06:20:49 EDT Performed By: #### U OXYS, DRUGU #### [address] [address] AST [Catalytic activity/Vol] 15 U/L Normal 8-34 [facility] ([place]) Comment on above: Order Comment: Conta minated - nurse draw - notified Rocio Pantoja 07/10/2023 06:20:49 EDT Performed By: #### U OXYS, DRUGU #### [address] [address] Bili Total 0.30 mg/dL Normal 0.20-1.20 [facility] ([place]) Comment on above: Order Comment: Conta minated - nurse draw - notified Rocio Pantoja 07/10/2023 06:20:49 EDT Result Comment: Use of this assay is not recommended for patients undergoing treatment with eltrombopag due to the potential for falsely elevated results. Performed By: #### U OXYS, DRUGU #### [address] [address] BUN/Creatinine Ratio 6.9 ratio Low 10.0-22.0 [facility] ([place]) Comment on above: Order Comment: Conta minated - nurse draw - notified Rocio Pantoja 07/10/2023 06:20:49 EDT Performed By: #### U OXYS, DRUGU #### [address] [address] Calcium [Mass/Vol] 8.8 mg/dL Normal 8.7-10.4 [facility] Comment on above: Order Comment: Conta minated - nurse draw - notified Rocio Pantoja 07/10/2023 06:20:49 EDT Performed By: #### U OXYS DRUGU #### [address] [address] Chloride [Moles/Vol] 106 mmol/L Normal 98-110 [facility] ([place]) Comment on above: Order Comment: Conta minated - nurse draw - notified Rocio Pantoja 07/10/2023 06:20:49 EDT Performed By: #### U OXYS, DRUGU #### [address] [address] CO2 [Moles/Vol] 20 mmol/L Low 22-32 [facility] ([place]) Comment on above: Order Comment: Conta minated - nurse draw - notified Rocio Pantoja 07/10/2023 06:20:49 EDT Performed By: #### U OXYS, DRUGU #### [address] [address] Creatinine [Mass/Vol] 0.87 mg/dL Normal 0.50-1.20 [facility] ([place]) Comment on above: Order Comment: Conta minated - nurse draw - notified Rocio Pantoja 07/10/2023 06:20:49 EDT Performed By: #### U OXYS, DRUGU #### [address] [address] Electrolyte Balance 10.0 mEq/L Normal 4.0-15.0 [facility] ([place]) Comment on above: Order Comment: Conta minated - nurse draw - notified Rocio Pantoja 07/10/2023 06:20:49 EDT Performed By: #### U OXYS, DRUGU #### [address] [address] Globulin 2.8 G/dL Normal 1.5-3.8 [facility] ([place] Comment on above: Order Comment: Conta minated - nurse draw - notified Rocio Pantoja 07/10/2023 06:20:49 EDT Performed By: #### U OXYS, DRUGU #### [address] [address] Glucose [Mass/Vol] 95 mg/dL Normal 70-110 [facility] [place] Comment on above: Order Comment: Conta minated - nurse draw - notified Rocio Pantoja 07/10/2023 06:20:49 EDT Performed By: #### U OXYS, DRUGU #### [address] [address] Potassium [Moles/Vol] 4.0 mmol/L Normal 3.5-5.0 [facility] ([place] Comment on above: Order Comment: Conta minated - nurse draw - notified Rocio Pantoja 07/10/2023 06:20:49 EDT Performed By: #### U OXYS, DRUGU #### [address] [address] Sodium [Moles/Vol] 136 mmol/L Normal 136-145 [facility] [place] Comment on above: Order Comment: Conta minated - nurse draw - notified Rocio Pantoja 07/10/2023 06:20:49 EDT Performed By: #### U OXYS DRUGU #### [address] [address] Total Protein 5.9 G/dL Normal 5.7-8.2 [facility] ([place] Comment on above: Order Comment: Conta minated - nurse draw - notified Rocio Pantoja 07/10/2023 06:20:49 EDT Result Comment: No te - New Reference Range in effect 20 Performed By: #### U OXYYesenia DRUGU #### [address] [address] Urea nitrogen [Mass/Vol] 6.0 mg/dL Low 8.0-22.0 [facility] ([place] Comment on above: Order Comment: Conta minated - nurse draw - notified Rocio Pantoja 07/10/2023 06:20:49 EDT Performed By: #### U OXYS, DRUGU #### [place] [id number] MGon 07-10-2023 Magnesium [Mass/Vol] 1.8 mg/dL Normal 1.6-2.4 [facility] ([place]) Comment on above: Performed By: #### U OXYS DRUGU #### [address] [address] PHOSon 07-10-2023 Phosphate [Mass/Vol] 3.2 mg/dL Normal 2.4-5.1 [facility] ([place]) Comment on above: Result Comment: No te - New Reference Range in effect 20 Performed By: #### U OXYS, DRUGU #### [address] [address] .Auto Diffon 07-09-2023 Basophil, Absolute 0.1 10 3/mcL Normal 0.0-0.3 [facility] ([place]) Comment on above: Performed By: #### C BC, ADIFF, PRO, BMP, ANEU, GFR #### [address] [address] Basophils/100 WBC (Bld) 1.2 % Normal 0.0-2.5 A [facility] ([place]) Comment on above: Performed By: #### C BC, ADIFF, PRO, BMP, ANEU, GFR #### [address] [address] Eosinophil, Absolute 0.3 10 3/mcL Normal 0.0-0.7 [facility] ([place]) Comment on above: Performed By: #### C BC, ADIFF, PRO, BMP, ANEU, GFR #### [address] [address] Eosinophils/100 WBC (Bld) 4.0 % Normal 0.0-6.0 [facility] ([place]) Comment on above: Performed By: #### C BC, ADIFF, PRO, BMP, ANEU, GFR #### [address] [address] Lymphocyte, Absolute 2.5 10 3/mcL Normal 0.9-4.3 [facility] ([place] Comment on above: Performed By: #### C BC, ADIFF, PRO, BMP, ANEU, GFR #### [address] [address] Lymphocytes/100 WBC (Bld) 29.3 % Normal 20.0-40.0 [facility] ([place]) Comment on above: Performed By: #### C BC, ADIFF, PRO, BMP, ANEU, GFR #### [address] [address] Monocyte, Absolute 0.7 10 3/mcL Normal 0.1-1.4 [facility] ([place]) Comment on above: Performed By: #### C BC, ADIFF, PRO, BMP, ANEU, GFR #### [address] [address] Monocytes/100 WBC (Bld) 7.9 % Normal 2.0-13.0 A [facility] ([place]) Comment on above: Performed By: #### C BC, ADIFF, PRO, BMP, ANEU, GFR #### [address] [address] Neutrophils/100 WBC (Bld) 57.6 % Normal 50.0-75.0 [facility] ([place]) Comment on above: Performed By: #### C BC, ADIFF, PRO, BMP, ANEU, GFR #### [address] [address] .GFRon 07-09-2023 GFR >60 Normal [facility] ([place]) Comment on above: Result Comment: GFR Population [...] BC, ADIFF, PRO, BMP, ANEU, GFR #### [address] [address] GFR Non- >60 Normal [facility] ([place]) Comment on above: Result Comment: GFR Population [...] BC, ADIFF, PRO, BMP, ANEU, GFR #### [address] [address] .MDWon 07-09-2023 Monocyte Distribution Width 15.99 Normal 0.00-20.00 [facility] ([place]) Comment on above: Result Comment: For ED adult patients suspected of sepsis, MDW<=20.0 does not rule out sepsis or risk of sepsis Performed By: #### C BC, ADIFF, PRO, BMP, ANEU, GFR #### [address] [address] .NEUABSon 07-09-2023 Neutrophil, Absolute 4.9 10 3/mcL Normal 2.3-8.1 [facility] ([place] Comment on above: Performed By: #### C BC, ADIFF, PRO, BMP, ANEU, GFR #### [place] [id number] ABO/Rh (Gel)on 07-09-2023 ABO/Rh Interp Positive Invalid Interpretation Code [facility] ([place]) Comment on above: Performed By: #### C BC, ADIFF, PRO, BMP, ANEU, GFR #### [place] [id number] ABS (Gel)on 07-09-2023 ABSC Interp (Gel) Negative Normal [facility] ([place]) Comment on above: Performed By: #### C BC, ADIFF, PRO, BMP, ANEU, GFR #### [place] [id number] CBCon 07-09-2023 Erythrocyte distribution width (RBC) [Ratio] 16.1 % High 11.5-15.5 [facility] ([place]) Comment on above: Performed By: #### C BC, ADIFF, PRO, BMP, ANEU, GFR #### [place] [address] Hematocrit (Bld) [Volume fraction] 36.4 % Normal 34.0-46.0 [facility] ([place] Comment on above: Performed By: #### C BC, ADIFF, PRO, BMP, ANEU, GFR #### [place] [address] Hgb 12.0 G/dL Normal 12.0-16.0 [facility] ([place] Comment on above: Performed By: #### C BC, ADIFF, PRO, BMP, ANEU, GFR #### [place] [address] MCH (RBC) [Entitic mass] 29.8 pg Normal 27.0-33.0 [facility] ([place] Comment on above: Performed By: #### C BC, ADIFF, PRO, BMP, ANEU, GFR #### [place] [address] MCHC 33.0 G/dL Normal 32.0-36.0 [facility] ([place]) Comment on above: Performed By: #### C BC, ADIFF, PRO, BMP, ANEU, GFR #### [place] [address] MCV (RBC) [Entitic vol] 90.3 fL Normal 80.0-99.0 [facility] ([place]) Comment on above: Performed By: #### C BC, ADIFF, PRO, BMP, ANEU, GFR #### [place] [address] Platelet 344 10 3/mcL Normal 150-450 [facility] ([place]) Comment on above: Performed By: #### C BC, ADIFF, PRO, BMP, ANEU, GFR #### [place] [address] Platelet mean volume (Bld) [Entitic vol] 6.9 fL Normal 6.6-10.5 [facility] ([place] Comment on above: Performed By: #### C BC, ADIFF, PRO, BMP, ANEU, GFR #### [place] [address] RBC 4.03 10 6/mcL Low 4.10-5.30 [facility] ([place] Comment on above: Performed By: #### C BC, ADIFF, PRO, BMP, ANEU, GFR #### [place] [address] WBC 8.5 10 3/mcL Normal 4.5-10.8 [facility] ([place] Comment on above: Performed By: #### C BC, ADIFF, PRO, BMP, ANEU, GFR #### [address] [address] CMPon 07-09-2023 Albumin Level 3.6 G/dL Normal 3.2-4.8 [facility] ([place] Comment on above: Performed By: #### C BC, ADIFF, PRO, BMP, ANEU, GFR #### [place] [id number] Albumin/Globulin [Mass ratio] 1.3 {ratio} Normal 0.9-1.6 [facility] ([place] Comment on above: Performed By: #### C BC, ADIFF, PRO, BMP, ANEU, GFR #### [place] [id number] ALP [Catalytic activity/Vol] 87 U/L Normal 38-126 [facility] ([place] Comment on above: Performed By: #### C BC, ADIFF, PRO, BMP, ANEU, GFR #### [place] [address] ALT/SGPT <8 Low 10-49 [facility] ([place] Comment on above: Performed By: #### C BC, ADIFF, PRO, BMP, ANEU, GFR #### [place] [id number] AST [Catalytic activity/Vol] 12 U/L Normal 8-34 [facility] ([place]) Comment on above: Performed By: #### C BC, ADIFF, PRO, BMP, ANEU, GFR #### [place] [address] Bili Total 0.30 mg/dL Normal 0.20-1.20 [facility] ([place]) Comment on above: Result Comment: Use of this assay is not recommended for patients undergoing treatment with eltrombopag due to the potential for falsely elevated results. Performed By: #### C BC, ADIFF, PRO, BMP, ANEU, GFR #### [place] [id number] BUN/Creatinine Ratio 9.3 ratio Low 10.0-22.0 [facility] ([place] Comment on above: Performed By: #### C BC, ADIFF, PRO, BMP, ANEU, GFR #### [place] [address] Calcium [Mass/Vol] 8.9 mg/dL Normal 8.7-10.4 [facility] [place] Comment on above: Performed By: #### C BC, ADIFF, PRO, BMP, ANEU, GFR #### [place] [id number] Chloride [Moles/Vol] 108 mmol/L Normal 98-110 [facility] ([place] Comment on above: Performed By: #### C BC, ADIFF, PRO, BMP, ANEU, GFR #### [place] [id number] CO2 [Moles/Vol] 23 mmol/L Normal 22-32 [facility] ([place] Comment on above: Performed By: #### C BC, ADIFF, PRO, BMP, ANEU, GFR #### [place] [address] Creatinine [Mass/Vol] 0.86 mg/dL Normal 0.50-1.20 [facility] ([place]) Comment on above: Performed By: #### C BC, ADIFF, PRO, BMP, ANEU, GFR #### [place] [address] Electrolyte Balance 8.0 mEq/L Normal 4.0-15.0 [facility] ([place]) Comment on above: Performed By: #### C BC, ADIFF, PRO, BMP, ANEU, GFR #### [place] [id number] Globulin 2.8 G/dL Normal 1.5-3.8 [facility] ([place] Comment on above: Performed By: #### C BC, ADIFF, PRO, BMP, ANEU, GFR #### [place] [address] Glucose [Mass/Vol] 89 mg/dL Normal 70-110 [facility] [place] Comment on above: Performed By: #### C BC, ADIFF, PRO, BMP, ANEU, GFR #### [address] [address] Potassium [Moles/Vol] 3.3 mmol/L Low 3.5-5.0 [facility] ([place] Comment on above: Performed By: #### C BC, ADIFF, PRO, BMP, ANEU, GFR #### [address] [address] Sodium [Moles/Vol] 139 mmol/L Normal 136-145 [facility] [place] Comment on above: Performed By: #### C BC, ADIFF, PRO, BMP, ANEU, GFR #### [address] [address] Total Protein 6.4 G/dL Normal 5.7-8.2 [facility] ([place] Comment on above: Result Comment: No te - New Reference Range in effect 20 Performed By: #### C BC, ADIFF, PRO, BMP, ANEU, GFR #### [address] [address] Urea nitrogen [Mass/Vol] 8.0 mg/dL Normal 8.0-22.0 [facility] ([place] Comment on above: Performed By: #### C BC, ADIFF, PRO, BMP, ANEU, GFR #### [address] [address] LABORATORYOrdered By: Emi Dalton on 07-09-2023 Appearance [...] (07/09/23 3:52 AM) Invalid Interpretation Code Negative Auto Urine SS UA pH 6.5 (07/09/23 [...] By: [facility] MICROBIOLOGY on 07-09-2023 Bacteria identified Cx Nom (Bld) Culture has been received in lab and is no growth to date. Culture will be held for four weeks. [facility] MGon 07-09-2023 Magnesium [Mass/Vol] 2.0 mg/dL Normal 1.6-2.4 [facility] ([place]) Comment on above: Performed By: #### C BC, ADIFF, PRO, BMP, ANEU, GFR #### [place] [address] No Panel Informationon 07-09 Culture Urine 10,000 - 50,000 cfu/ ml Multiple bacterial morphotypes present. Probable Contamination. Suggest recollection if clinically indicated. [facility] Work Phone: Culture Urine 10,000 - 50,000 cfu/ ml Multiple bacterial morphotypes present. Probable Contamination. Suggest recollection if clinically indicated. [facility] Work Phone: PHOSon 07-09-2023 Phosphate [Mass/Vol] 3.4 mg/dL Normal 2.4-5.1 [facility] ([place]) Comment on above: Result Comment: No te - New Reference Range in effect 20 Performed By: #### C BC, ADIFF, PRO, BMP, ANEU, GFR #### [address] [address] UAon 07-09-2023 Color (U) Red Abnormal [facility] ([place]) Comment on above: Performed By: #### C BC, ADIFF, PRO, BMP, ANEU, GFR #### [address] [address] Glucose (U) [Mass/Vol] Negative Normal Negative [facility] ([place]) Comment on above: Performed By: #### C BC, ADIFF, PRO, BMP, ANEU, GFR #### [address] [address] Ketones Ql (U) Negative Normal Neg-Trace [facility] ([place] Comment on above: Performed By: #### C BC, ADIFF, PRO, BMP, ANEU, GFR #### [address] [address] UA Appear Turbid Abnormal Clear [facility] ([place] Comment on above: Performed By: #### C BC, ADIFF, PRO, BMP, ANEU, GFR #### [address] [address] UA Blood Large Abnormal Neg-Trace [facility] ([place] Comment on above: Performed By: #### C BC, ADIFF, PRO, BMP, ANEU, GFR #### [address] [address] UA Leuk Est Large Abnormal Negative [facility] ([place] Comment on above: Performed By: #### C BC, ADIFF, PRO, BMP, ANEU, GFR #### [address] [address] UA Nitrite Negative Normal Negative [facility] ([place] Comment on above: Performed By: #### C BC, ADIFF, PRO, BMP, ANEU, GFR #### [address] [address] UA pH 6.5 Normal 5.0 - 8.0 [facility] ([place] Comment on above: Performed By: #### C BC, ADIFF, PRO, BMP, ANEU, GFR #### [address] [address] UA Protein >=1000 Abnormal Negative [facility] ([place] Comment on above: Performed By: #### C BC, ADIFF, PRO, BMP, ANEU, GFR #### [address] [address] UA Spec Grav 1.025 Normal 1.006-1.029 [facility] ([place] Comment on above: Performed By: #### C BC, ADIFF, PRO, BMP, ANEU, GFR #### [address] [address] UA Specimen Type Catheter Normal [facility] ([place] Comment on above: Performed By: #### C BC, ADIFF, PRO, BMP, ANEU, GFR #### [address] [address] UA Urobilinogen 1.0 E.U./dL Normal 0.2-1.0 [facility] ([place] Comment on above: Performed By: #### C BC, ADIFF, PRO, BMP, ANEU, GFR #### [address] [address] Urobilinogen (U) [Mass/Vol] Negative Normal Neg-Trace [facility] ([place] Comment on above: Performed By: #### C BC, ADIFF, PRO, BMP, ANEU, GFR #### [address] [address] Color (U) Yellow Normal [facility] ([place] Comment on above: Performed By: #### C BC, ADIFF, PRO, BMP, ANEU, GFR #### [address] [address] Glucose (U) [Mass/Vol] Negative Normal Negative [facility] ([place] Comment on above: Performed By: #### C BC, ADIFF, PRO, BMP, ANEU, GFR #### [address] [address] Ketones Ql (U) Trace Normal Neg-Trace [facility] ([place] Comment on above: Performed By: #### C BC, ADIFF, PRO, BMP, ANEU, GFR #### [address] [address] UA Appear Cloudy Abnormal Clear [facility] ([place] Comment on above: Performed By: #### C BC, ADIFF, PRO, BMP, ANEU, GFR #### [address] [address] UA Blood Moderate Abnormal Neg-Trace [facility] ([place] Comment on above: Performed By: #### C BC, ADIFF, PRO, BMP, ANEU, GFR #### [address] [address] UA Leuk Est Moderate Abnormal Negative [facility] ([place] Comment on above: Performed By: #### C BC, ADIFF, PRO, BMP, ANEU, GFR #### [address] [address] UA Nitrite Negative Normal Negative [facility] ([place] Comment on above: Performed By: #### C BC, ADIFF, PRO, BMP, ANEU, GFR #### [address] [address] UA pH 6.5 Normal 5.0 - 8.0 [facility] ([place] Comment on above: Performed By: #### C BC, ADIFF, PRO, BMP, ANEU, GFR #### [address] [address] UA Protein 100 mg/dL Abnormal Negative [facility] ([place] Comment on above: Performed By: #### C BC, ADIFF, PRO, BMP, ANEU, GFR #### [address] [address] UA Spec Grav 1.020 Normal 1.006-1.029 [facility] ([place] Comment on above: Performed By: #### C BC, ADIFF, PRO, BMP, ANEU, GFR #### [address] [address] UA Specimen Type Catheter Normal [facility] ([place] Comment on above: Performed By: #### C BC, ADIFF, PRO, BMP, ANEU, GFR #### [address] [address] UA Urobilinogen 0.2 E.U./dL Normal 0.2-1.0 [facility] ([place] Comment on above: Performed By: #### C BC, ADIFF, PRO, BMP, ANEU, GFR #### [place] [address] Urobilinogen (U) [Mass/Vol] Negative Normal Neg-Trace [facility] ([place] Comment on above: Performed By: #### C BC, ADIFF, PRO, BMP, ANEU, GFR #### [address] [address] UAMICon 07-09-2023 UA Bacteria 2+ /hpf Abnormal Negative [facility] ([place] Comment on above: Performed By: #### C BC, ADIFF, PRO, BMP, ANEU, GFR #### [address] [address] UA Mucous 2+ /hpf Normal [facility] ([place] Comment on above: Performed By: #### C BC, ADIFF, PRO, BMP, ANEU, GFR #### [address] [address] UA RBC LOADED Abnormal 0-2 [facility] ([place] Comment on above: Performed By: #### C BC, ADIFF, PRO, BMP, ANEU, GFR #### [address] [address] UA Squam Epithelial 5-10 Normal 0-20 [facility] ([place]) Comment on above: Performed By: #### C BC, ADIFF, PRO, BMP, ANEU, GFR #### [address] [address] UA WBC 10-20 Abnormal 0-5 [facility] ([place] Comment on above: Performed By: #### C BC, ADIFF, PRO, BMP, ANEU, GFR #### [address] [address] UA Crenated RBCs 3-5 Abnormal [facility] ([place] Comment on above: Performed By: #### C BC, ADIFF, PRO, BMP, ANEU, GFR #### [address] [address] UA Mucous 1+ /hpf Normal [facility] ([place] Comment on above: Performed By: #### C BC, ADIFF, PRO, BMP, ANEU, GFR #### [address] [address] UA RBC 5-10 Abnormal 0-2 [facility] ([place] Comment on above: Performed By: #### C BC, ADIFF, PRO, BMP, ANEU, GFR #### [address] [address] UA Squam Epithelial 5-10 Normal 0-20 [facility] ([place] Comment on above: Performed By: #### C BC, ADIFF, PRO, BMP, ANEU, GFR #### [address] [address] UA WBC 25-50 Abnormal 0-5 [facility] ([place] Comment on above: Performed By: #### C BC, ADIFF, PRO, BMP, ANEU, GFR #### [address] [address] LABORATORYOrdered By: SYSTEM SYSTEM on 05-07-2023 Albumin [...] 8.2 G/dL ADM SS RBC (Bld) [#/Vol] 3.77 106/mcL Invalid Interpretation Code 4.10 - 5.30 10^6/mcL AH Workflow SS Sodium [Moles/Vol] 138 mmol/L Invalid Interpretation Code 136 - 145 mEq/L ADM SS Urea nitrogen [Mass/Vol] 15.0 mg/dL [...] 75.0 % AH Workflow SS Phosphate [Mass/Vol] 4.4 mg/dL Invalid Interpretation Code 2.4 - 5.1 mg/dL ADM SS Platelet mean volume (Bld) [Entitic vol] 6.8 fL Invalid Interpretation Code 6.6 - 10.5 fL Workflow SS Platelets (Bld) [#/Vol] 412 103/mcL Invalid Interpretation Code 150 - 450 10^3/mcL AH Workflow SS Potassium [Moles/Vol] 4.0 mmol/L Invalid Interpretation Code 3.5 - 5.0 mEq/L AH ADM SS Protein [Mass/Vol] 6.7 G/dL Invalid [...] Code 10.0 - 22.0 ratio ADM SS Vancomycin trough [Mass/Vol] 22.3 ug/mL [...] Culture Urine No growth at 48 hours. [facility] Work Phone: Culture Urine No growth at 48 hours. [facility] Work Phone: LABORATORYOrdered By: SYSTEM SYSTEM on 04-29-2023 25-hydroxyvitamin D3 [Mass/Vol] 15.9 ng/mL Invalid Interpretation Code ADM SS Cobalamin (Vitamin B12) [Mass/Vol] 292 pg/mL Invalid Interpretation Code 211 - 911 pg/mL ADM SS Ferritin [Mass/Vol] 9.6 ng/mL Invalid Interpretation Code 8.0 - 252.0 ng/mL AH ADM SS Folate [Mass/Vol] 10.16 ng/mL Invalid [...] or 2. Interpretative criteria are not available. [facility] Work Phone: Cefotaxime ANA LILIA [Susc]on 04-04 Enterococcus faecalis Enterococcus faecalis [facility] Work Phone: Klebsiella oxytoca Raoultella ornithinolytica Klebsiella oxytoca Raoultella ornithinolytica [facility] Work Phone: [facility] Work Phone: Vagococcus fluvialis Vagococcus fluvialis [facility] Work Phone: LABORATORYOrdered By: Jesus Pedro on [...] Blood Culture: No Growth at 5 days. [facility] Work Phone: Culture Urine >100,000 cfu/ml Mult iple bacterial morphotypes present. Probable Contamination. Suggest recollection if clinically indicated. [facility] Work Phone: LABORATORYOrdered By: SYSTEM SYSTEM on [...] 8.1 10^3/mcL Workflow SS Neutrophils/100 WBC (Bld) 60.0 % [...] AH ADM SS Urea nitrogen/Creatinine [Mass ratio] 8.5 [...] 0.7 10^3/mcL Workflow SS Eosinophils/100 WBC (Bld) 6.4 % [...] 27.0 - 33.0 pg Workflow SS MCHC 34.3 G/dL Invalid Interpretation Code 32.0 - 36.0 G/dL Workflow SS MCV (RBC) [Entitic vol] 96.6 fL Invalid Interpretation Code 80.0 - 99.0 fL Workflow SS Monocytes (Bld) [#/Vol] 1.0 103/mcL Invalid Interpretation Code 0.1 - 1.4 10^3/mcL Workflow SS Monocytes/100 WBC (Bld) 14.1 % Invalid Interpretation Code 2.0 - 13.0 % Workflow SS Neutrophils (Bld) [#/Vol] 3.7 103/mcL Invalid Interpretation Code 2.3 - 8.1 10^3/mcL Workflow SS Neutrophils/100 WBC (Bld) 54.7 % Invalid Interpretation Code 50.0 - 75.0 % Workflow SS Phosphate [Mass/Vol] 4.7 mg/dL Invalid [...] above: Result Comment: Note s FLUBV RNA SZUI+probe Ql (Resp) Negative 4 (03/03/23 8:16 AM) [...] 8.1 10^3/mcL Workflow SS Neutrophils/100 WBC (Bld) 52.9 % Invalid Interpretation Code 50.0 - 75.0 % Workflow SS Phosphate [Mass/Vol] 4.9 mg/dL Invalid Interpretation Code 2.4 - 5.1 mg/dL ADM SS Platelet mean volume (Bld) [Entitic vol] 7.1 fL Invalid Interpretation Code 6.6 - 10.5 fL Workflow SS Platelets (Bld) [#/Vol] 420 103/mcL Invalid Interpretation Code 150 - 450 10^3/mcL Workflow SS Potassium [Moles/Vol] 4.5 mmol/L Invalid [...] Code 4.5 - 10.8 10^3/mcL Workflow SS CEFTRIAXONE:SUSC:PT:ISOLATE: ORDQN:MICon 02-23-2023 cefTRIAXone ANA LILIA [Susc] 10,000 - 50,000 c fu/ml Escherichia coli ESBL Extended-Spectrum B-Lactamase isolate may be clinically resistant to therapy with Penicillins, Cephalosporinsor Aztreonam despite apparent in vitro susceptibility to some of these agents. Use of Imipenem is currently restricted to Infectious Disease /Intensivists. Please consult Physicians accordingly. [facility] Work Phone: LABORATORYOrdered By: Juan Diego Echevarria [...] 2.0 mmol/L Auto Chem SS LABORATORYOrdered By: [employer] SYSTEM on 02-23-2023 Monocyte distribution width Auto (Bld) [Entitic vol] 20.71 Invalid Interpretation Code 0.00 - 20.00 Workflow SS Comment on above: Result Comment: For adults in ED, MDW>20.0 may be associated with a higher risk of sepsis during the first 12hrs of hospital admission LABORATORYOrdered By: Radha Penn on 02-23-2023 Beta HCG ( test) Ql (U) Negative (02/23/23 12:06 PM) [facility] Work Phone: No Panel Informationon 02-23 Culture Urine No growth at 48 hours. [facility] Work Phone: Microscopic examination of blood, culture Blood Culture: No Growth at 5 days. [facility] Work Phone: cefTRIAXone ANA LILIA [Susc]on Escherichia coli ESBL Escherichia coli ESBL [facility] Work Phone: LABORATORYOrdered By: SYSTEM SYSTEM on [...] AH Workflow SS MCV (RBC) [Entitic vol] 99.0 [...] 75.0 % AH Workflow SS Phosphate [Mass/Vol] 3.8 mg/dL Invalid [...] - 450 10^3/mcL Workflow SS Potassium [Moles/Vol] 4.2 mmol/L Invalid [...] 1 /[HPF] Invalid Interpretation Code Negative/HP F Auto [...] (U) [Mass/Vol] 194.8 mg/dL Invalid Interpretation Code AH ADM SS Protein (U) [Mass/Vol] 450.4 mg/dL Invalid Interpretation Code AH ADM SS U Ratio Prot/Creat 2.3 ratio Invalid Interpretation Code AH ADM SS Laboratory - Microbiology an d Antimicrobial susceptibilityOrdered By: [facility] MICRO[facility] on 01-01-2023 Bacteria identified Cx Nom (Bld) Culture has been received in lab and is no growth to date. Culture will be held for four weeks. [facility] No Panel Informationon 01-01 Culture Urine >100,000 cfu/ml Multiple bacterial morphotypes present. Probable Contamination. Suggest recollection if clinically indicated. [facility] Work Phone: Culture Urine >100,000 cfu/ml Multiple bacterial morphotypes present. Probable Contamination. Suggest recollection if clinically indicated. [facility] Work Phone: LABORATORYOrdered By: SYSTEM SYSTEM on [...] 1.6 ratio ADM SS ALP [Catalytic activity/Vol] 56 U/L [...] - 75.0 % Workflow SS Phosphate [Mass/Vol] 3.4 mg/dL Invalid [...] (10/02/22 8:07 AM) Invalid Interpretation Code Clear Auto Urine SS [...] Culture Urine No growth at 48 hours. [facility] Work Phone: LABORATORYOrdered By: Alicia Gardiner on [...] d Antimicrobial susceptibilityOrdered By: ANGPROCESSSERVER MICROBIOLOGY on 09-30-2022 Bacteria identified Cx Nom (Bld) Culture has been received in lab and is no growth to date. Culture will be held for four weeks. [facility] No Panel Informationon 09-30 Culture Urine >100,000 cfu/ml Mult iple bacterial morphotypes present. Probable Contamination. Suggest recollection if clinically indicated. [facility] Work Phone: LABORATORYOrdered By: SYSTEM SYSTEM on [...] G/dL Workflow SS MCV (RBC) [Entitic vol] 101.5 [...] % AH Workflow SS Hemoglobin (Bld) [Mass/Vol] 12.4 G/dL Invalid Interpretation Code 12.0 - 16.0 G/dL AH Workflow SS Lymphocytes (Bld) [#/Vol] 1.5 103/mcL Invalid Interpretation Code 0.9 - 4.3 10^3/mcL AH Workflow SS Lymphocytes/100 WBC (Bld) 27.0 % Invalid Interpretation Code 20.0 - 40.0 % AH Workflow SS Magnesium [Mass/Vol] 2.3 mg/dL Invalid Interpretation Code 1.6 - 2.4 mg/dL AH ADM SS MCH (RBC) [Entitic mass] 33.7 pg Invalid Interpretation Code 27.0 - 33.0 pg AH Workflow SS MCHC 33.5 G/dL Invalid Interpretation Code 32.0 - 36.0 G/dL AH Workflow SS MCV (RBC) [Entitic vol] 100.8 fL Invalid Interpretation Code 80.0 - 99.0 fL AH Workflow SS Monocytes (Bld) [#/Vol] 0.7 103/mcL Invalid Interpretation Code 0.1 - 1.4 10^3/mcL AH Workflow SS Monocytes/100 WBC (Bld) 11.7 % Invalid Interpretation Code 2.0 - 13.0 % AH Workflow SS Neutrophils (Bld) [#/Vol] 2.7 103/mcL Invalid Interpretation Code 2.3 - 8.1 10^3/mcL AH Workflow SS Neutrophils/100 WBC (Bld) 48.9 % Invalid Interpretation Code 50.0 - 75.0 % AH Workflow SS Phosphate [Mass/Vol] 2.6 mg/dL Invalid Interpretation Code 2.4 - 5.1 mg/dL ADM SS Platelet mean volume (Bld) [Entitic vol] 6.6 fL Invalid Interpretation Code 6.6 - 10.5 fL AH Workflow SS Platelets (Bld) [#/Vol] 393 103/mcL Invalid Interpretation Code 150 - 450 10^3/mcL AH Workflow SS Potassium [Moles/Vol] 3.7 mmol/L Invalid [...] 5.0 mEq/L AH ADM SS Protein [Mass/Vol] 5.3 G/dL Invalid Interpretation Code 5.7 - 8.2 G/dL AH ADM SS RBC (Bld) [#/Vol] 3.57 106/mcL Invalid Interpretation Code 4.10 - 5.30 10^6/mcL AH Workflow SS Sodium [Moles/Vol] 138 mmol/L Invalid Interpretation Code 136 - 145 mEq/L ADM SS Urea nitrogen [Mass/Vol] 5.0 mg/dL Invalid Interpretation Code 8.0 - 22.0 mg/dL AH ADM SS Urea nitrogen/Creatinine [Mass ratio] 6.2 [...] ratio AH ADM SS ALP [Catalytic activity/Vol] 61 U/L Invalid Interpretation Code 38 - 126 U/L AH ADM SS ALT No additional P-5'-P [Catalytic activity/Vol] U/L 1 Invalid Interpretation Code 10 - 49 U/L AH ADM SS AST [Catalytic activity/Vol] 10 U/L [...] G/dL AH ADM SS RBC (Bld) [#/Vol] 3.51 106/mcL [...] or 2. Interpretative criteria are not available. [facility] Work Phone: Amikacin ANA LILIA [Susc]on 2021 Corynebacterium amycolatum [facility]ium [facility] Work Phone: Escherichia coli ESBL Escherichia coli ESBL [facility] Work Phone: LABORATORYOrdered By: Nilda Flores on 08-09-2022 Appearance (U) Turbid *ABN* (08/09/22 12:45 AM) Invalid Interpretation Code Clear Auto Urine SS Bacteria LM.HPF (Urine sed) [#/Area] 4 /[HPF] Invalid Interpretation Code Negative/HP F AH Auto Urine SS Bilirubin Ql (U) Negative (08/09/22 12:45 AM) Invalid Interpretation Code Neg-Trace AH Auto Urine SS Calcium oxalate crystals LM.HPF (Urine sed) [#/Area] 1 /[HPF] Invalid Interpretation Code Auto Urine SS Color (U) Yellow (08/09/22 [...] Catheter (08/08/22 7:17 PM) Invalid Interpretation Code Auto Urine SS UA Squam Epithelial 0-2 /HPF Invalid Interpretation Code 0-20/HPF Auto Urine SS UA Urobilinogen 0.2 E.U./dL Invalid Interpretation Code 0.2-1.0E.U. /dL AH Auto Urine SS WBC LM.HPF (Urine sed) [#/Area] 10-20 /HPF Invalid Interpretation Code 0-5/HPF AH Auto Urine SS LABORATORYOrdered By: Bassam Dixon on 08-08-2022 Albumin BCP dye [Mass/Vol] 3.7 G/dL Invalid Interpretation Code 3.2 - 4.8 G/dL ADM SS Albumin/Globulin [Mass ratio] 1.5 {ratio} [...] Interpretation Code 98 - 110 mEq/L CC P SS CO2 [Moles/Vol] 18 mmol/L Invalid Interpretation [...] Probable Contamination. Suggest recollection if clinically indicated. [facility] Work Phone: LABORATORYOrdered By: SYSTEM SYSTEM on [...] 110 mEq/L AH ADM SS CO2 [Moles/Vol] 24 mmol/L Invalid [...] - 22.0 ratio AH ADM SS WBC 5.9 103/mcL Invalid Interpretation [...] Invalid Interpretation Code 70 - 110 mg/dL AH ADM SS Hematocrit (Bld) [Volume fraction] 35.7 [...] - 5.0 mEq/L ADM SS Protein [Mass/Vol] 5.4 G/dL Invalid [...] - 46.0 % AH Workflow SS Hgb 12.3 G/dL Invalid Interpretation [...] - 33.0 pg AH Workflow SS MCHC 33.2 G/dL Invalid Interpretation [...] cfu/ml. No Significant growth. Sensitivity not indicated. [facility] Work Phone: No Panel Informationon 04-14 Culture Urine >100,000 cfu/ml Escherichia coli ESBL Extended-Spectrum B-Lactamase isolate may be clinically resistant to therapy with Penicillins, Cephalosporinsor Aztreonam despite apparent in vitro susceptibility to some of these agents. Use of Imipenem is currently restricted to Infectious Disease /Intensivists. Please consult Physicians accordingly. >100,000 cfu/ml Enterococcus faecalis [facility] Work Phone: Enterococcus faecalis Enterococcus faecalis [facility] Work Phone: Escherichia coli ESBL Escherichia coli ESBL [facility] Work Phone: LABORATORYOrdered By: Oc De Leon on 12-21-2021 Beta HCG ( test) Ql (U) Negative (12/21/21 11:24 AM) [facility] Work Phone: Clinical Event Note-Hospital ist Follow [...] no voice mail Electronic Signatures: Akin Lewis (WAGE AND SALARY ADMINISTRATOR-TECHNICAL PROGRAM MANAGER) (Signed 20-Jul-2021 02:23) Authored: Clinical Event Note Last Updated: 20-Jul-2021 02:23 by Akin Lewis (WAGE AND SALARY ADMINISTRATOR-TECHNICAL PROGRAM MANAGER) Normal [facility] BASIC METABOLIC PANELon 07-04 Anion gap [Moles/Vol] 13 mmol/L Normal 10 - 20 [facility] Comment on above: Performed By: #### B MP #### [facility] [address] [place] [address] Calcium [Mass/Vol] 9.3 mg/dL Normal 8.6 - 10.6 [facility] Comment on above: Performed By: #### B MP #### [facility] [address] [place] [address] Chloride [Moles/Vol] 107 mmol/L Normal 98 - 107 [facility] Comment on above: Performed By: #### B MP #### [facility] [address] [place] [address] Creatinine [Mass/Vol] 0.76 mg/dL Normal 0.50 - 1.05 [facility] Comment on above: Performed By: #### B MP #### [facility] [address] [place] [address] GFR- AM. >60 Normal >60 [facility] Comment on above: Result Comment: CALC ULATIONS OF ESTIMATED GFR ARE PERFORMED USING THE MDRD STUDY EQUATION FOR THE IDMS-TRACEABLE CREATININE METHODS. CLIN CHEM 2007;53:766-72 Performed By: #### B MP #### [facility] [address] [place] [address] GFR-NON AM. >60 Normal >60 [facility] Comment on above: Performed By: #### B MP #### [facility] [address] [place] [address] Glucose [Mass/Vol] 77 mg/dL Normal 74 - 99 [facility] Comment on above: Performed By: #### B MP #### [facility] [address] [place] [address] HCO3 (Bld) [Moles/Vol] 26 mmol/L Normal 21 - 32 [facility] Comment on above: Performed By: #### B MP #### [facility] [address] [place] [address] Potassium [Moles/Vol] 4.2 mmol/L Normal 3.5 - 5.3 [facility] Comment on above: Performed By: #### B MP #### [facility] [address] [place] [address] Sodium [Moles/Vol] 142 mmol/L Normal 136 - 145 [facility] Comment on above: Performed By: #### B MP #### [facility] [address] [place] [address] Urea nitrogen [Mass/Vol] 8 mg/dL Normal 6 - 23 [facility] Comment on above: Performed By: #### B MP #### [facility] [address] [place] [address] CBCon 07-14-2021 Erythrocyte distribution width (RBC) [Ratio] 13.8 % Normal 11.5 - 14.5 [facility] Comment on above: Performed By: #### C BC #### [facility] [address] [place] [address] Hematocrit (Bld) [Volume fraction] 35.6 % Low 36.0 - 46.0 [facility] Comment on above: Performed By: #### C BC #### [facility] [address] [place] [address] Hemoglobin (Bld) [Mass/Vol] 12.3 g/dL Normal 12.0 - 16.0 [facility] Comment on above: Performed By: #### C BC #### [facility] [address] [place] [address] MCHC (RBC) [Mass/Vol] 34.6 g/dL Normal 32.0 - 36.0 [facility] Comment on above: Performed By: #### C BC #### [facility] [address] [place] [address] MCV (RBC) [Entitic vol] 108 fL High 80 - 100 [facility] Comment on above: Performed By: #### C BC #### [facility] [address] [place] [address] NUCLEATED RBC 0.0 /100 WBC Normal 0.0-0.0 [facility] Comment on above: Performed By: #### C BC #### [facility] [address] [place] [address] Platelets (Bld) [#/Vol] 462 10*3/uL High 150 - 450 [facility] Comment on above: Performed By: #### C BC #### [facility] [address] [place] [address] RBC 3.29 x10E12/L Low 4.00 - 5.20 [facility] Comment on above: Performed By: #### C BC #### [facility] [address] [place] [address] WBC (Bld) [#/Vol] 6.6 10*3/uL Normal 4.4 - 11.3 [facility] Comment on above: Performed By: #### C BC #### [facility] [address] [place] [address] Order Reconciliationon 07-14 Order Reconciliation Page 1 [...] be shared with your follow-up providers (doctor, coding technician, physical therapist, etc.). Guidelines for a Healthy [...] be shared with your follow-up providers (doctor, coding technician, physical therapist, etc.). Guidelines for a Healthy Lifestyle LORazepam 1 mg oral tablet 1 tab(s) orally 3 times a day, As Needed sulfamethoxazole-trimeth oprim 800 mg-160 mg oral tablet 1 tab(s) orally every 12 hours Normal [facility] BASIC METABOLIC PANELon 07-04 Anion gap [Moles/Vol] 9 mmol/L Low 10 - 20 [facility] Comment on above: Performed By: #### B MP #### [facility] [address] [place] [address] Calcium [Mass/Vol] 8.7 mg/dL Normal 8.6 - 10.6 [facility] Comment on above: Performed By: #### B MP #### [facility] [address] [place] [address] Chloride [Moles/Vol] 105 mmol/L Normal 98 - 107 [facility] Comment on above: Performed By: #### B MP #### [facility] [address] [place] [address] Creatinine [Mass/Vol] 0.67 mg/dL Normal 0.50 - 1.05 [facility] Comment on above: Performed By: #### B MP #### [facility] [address] [place] [address] GFR- AM. >60 Normal >60 [facility] Comment on above: Result Comment: CALC ULATIONS OF ESTIMATED GFR ARE PERFORMED USING THE MDRD STUDY EQUATION FOR THE IDMS-TRACEABLE CREATININE METHODS. CLIN CHEM 2007;53:766-72 Performed By: #### B MP #### [facility] [address] [place] [address] GFR-NON AM. >60 Normal >60 [facility] Comment on above: Performed By: #### B MP #### [facility] [address] [place] [address] Glucose [Mass/Vol] 89 mg/dL Normal 74 - 99 [facility] Comment on above: Performed By: #### B MP #### [facility] [address] [place] [address] HCO3 (Bld) [Moles/Vol] 28 mmol/L Normal 21 - 32 [facility] Comment on above: Performed By: #### B MP #### [facility] [address] [place] [address] Potassium [Moles/Vol] 4.2 mmol/L Normal 3.5 - 5.3 [facility] Comment on above: Performed By: #### B MP #### [facility] [address] [place] [address] Sodium [Moles/Vol] 138 mmol/L Normal 136 - 145 [facility] Comment on above: Performed By: #### B MP #### [facility] [address] [place] [address] Urea nitrogen [Mass/Vol] 7 mg/dL Normal 6 - 23 [facility] Comment on above: Performed By: #### B MP #### [facility] [address] [place] [address] CBCon 07-13-2021 Erythrocyte distribution width (RBC) [Ratio] 13.7 % Normal 11.5 - 14.5 [facility] Comment on above: Performed By: #### C BC #### [facility] [address] [place] [address] Hematocrit (Bld) [Volume fraction] 35.5 % Low 36.0 - 46.0 [facility] Comment on above: Performed By: #### C BC #### [facility] [address] [place] [address] Hemoglobin (Bld) [Mass/Vol] 11.7 g/dL Low 12.0 - 16.0 [facility] Comment on above: Performed By: #### C BC #### [facility] [address] [place] [address] MCHC (RBC) [Mass/Vol] 33.0 g/dL Normal 32.0 - 36.0 [facility] Comment on above: Performed By: #### C BC #### [facility] [address] [place] [address] MCV (RBC) [Entitic vol] 109 fL High 80 - 100 [facility] Comment on above: Performed By: #### C BC #### [facility] [address] [place] [address] NUCLEATED RBC 0.0 /100 WBC Normal 0.0-0.0 [facility] Comment on above: Performed By: #### C BC #### [facility] [address] [place] [address] Platelets (Bld) [#/Vol] 425 10*3/uL Normal 150 - 450 [facility] Comment on above: Performed By: #### C BC #### [facility] [address] [place] [address] RBC 3.26 x10E12/L Low 4.00 - 5.20 [facility] Comment on above: Performed By: #### C BC #### [facility] [address] [place] [address] WBC (Bld) [#/Vol] 5.9 10*3/uL Normal 4.4 - 11.3 [facility] Comment on above: Performed By: #### C BC #### [facility] [address] [place] [address] Daily Progress Note-Medicine on 07-13-2021 Daily Progress Note-Medicine Service: Medicine Subjective Data: LALY NAVAS is a 30 year old Female who is Hospital Day # 3. Patient states she is feeling better today. Still having some pain around the left nephrostomy tube. Objective Data: Objective Information: T [id number] [id number]% Date/Time07/13 16: 16: 16: 16: 16:02 Range(36.8C - 37.3C ) (68 - 90 ) (18 - 18 ) (109 - 120 )/ (75 - 93 ) (98% - 100% ) Highest temp of 37.3 C was recorded at 07/13 8:26 Pain reported at 07/13 6:36: 7 = Severe ---- Intake and Output ----- [facility] 2:00 [id number] Jul 13, 2021 6:00 [id number] Jul 12, 2021 10:00 [id number] The Intake and Output Totals for the last 24 hours are: [phone] Physical Exam by System: Constitutional: Well developed, [...] Updated: 13-Jul-2021 19:06 by Shira Teran) Normal [facility] Discharge [id number] Discharge Profile2 Discharge Orders: Anticipated Discharge Date: Anticipated Discharge [id number] Hospital Providers: Provider RoleProvider Name AttendingShira Teran DNAR: DNAR Status: none Activity: activity as tolerated. Diet: Dietresume normal diet Provider FINAL REVIEW of Orders: Final Review: Final Review of Medication Reconciliation and Orders Completedby Physician Reviewing ProviderMartinamitra Parul MD at 14-Jul-2021 14:12:33 Appointments: Follow-Up Appointment 01: Physician/Dept/Yara Plummer Reason for ReferralFollow up Scheduled Date/[id number] 11:10 [facility], [address] [place] [address], [address], [place] [id number] Phone [phone] Electronic Signatures: Shira Teran) (Signed 14-Jul-2021 14:12) Authored: Discharge Orders, Provider FINAL REVIEW of Orders Delmar Ramos (WAGE AND SALARY ADMINISTRATOR-TECHNICAL PROGRAM MANAGER) (Signed 13-Jul-2021 10:30) Authored: Discharge Orders, Appointments, Gold Form - Geophysical Laboratory Director Summary Last Updated: 14-Jul-2021 14:12 by Shira Teran) Normal [facility] LACTATEon 07-13-2021 Lactate [Moles/Vol] 1.2 mmol/L Normal 0.4 - 2.0 [facility] Comment on above: Result Comment: Roseline puncture immediately after or during the administration of Metamizole may lead to falsely low results. Testing should be performed immediately prior to Metamizole dosing. Performed By: #### L ACT #### [facility] [address] [place] [address] Admission Risk Screen - Adul ton 07-12-2021 Admission Risk Screen - Adult Allergies: Allergies: No Known Allergies: Patient Verification: New W ID Band Applied in my Departmentno Type of ID Patient is WearingW wristband, but not applied here Patient Transferred from Other Facility ([facility], [facility],etc)no Patient Identity Verified Bypatient ID [...] AlertFor Ebola-like Symptoms: Isolate Patient and Notify Provider/Gutter Hanger For Contact: Notify Provider/Gutter Hanger Advance Directive: Advance Directive/DNRno (1) Advance Directive [...] Learning Preferencesverbal instruction Cultural Considerationsnone Developmental Considerationsnone Episcopal Considerationsnone Learning Assessment (Other Learner): Other learner availableno Depression Screen: During the past month, have you often been bothered by feeling down, depressed or hopelessyes During the past month, have you often had little interest or pleasure in doing thingsyes Have you had any thoughts of harming anyone elseno (2) [place] Suicide: Risk Screen Not Applicable/Able to Answerable to be screened In the Past Month: Have you wished you were or could go to sleep and not wake upno(2) In the Past Month: Have you had any actual thoughts of killing yourself no(2) Lifetime: Have you ever done, started to do, or prepared to do anything to end your lifeno [place] Suicide Risknegative Adult Nutrition Screen: Have you [...] (nonverbal)verbalization Chroni (more content not included)... Normal [facility] BASIC METABOLIC PANELon 09-0 -2020 Anion gap [Moles/Vol] 12 mmol/L Normal 10 - 20 [facility] Comment on above: Performed By: #### B MP #### [facility] [address] [place] [address] Calcium [Mass/Vol] 8.9 mg/dL Normal 8.6 - 10.6 [facility] Comment on above: Performed By: #### B MP #### [facility] [address] [place] [address] Chloride [Moles/Vol] 104 mmol/L Normal 98 - 107 [facility] Center Comment on above: Performed By: #### B MP #### [facility] [address] [place] [address] Creatinine [Mass/Vol] 0.69 mg/dL Normal 0.50 - 1.05 [facility] Comment on above: Performed By: #### B MP #### [facility] [address] [place] [address] GFR- AM. >60 Normal >60 [facility] Comment on above: Result Comment: CALC ULATIONS OF ESTIMATED GFR ARE PERFORMED USING THE MDRD STUDY EQUATION FOR THE IDMS-TRACEABLE CREATININE METHODS. CLIN CHEM 2007;53:766-72 Performed By: #### B MP #### [facility] [address] [place] [address] GFR-NON AM. >60 Normal >60 [facility] Comment on above: Performed By: #### B MP #### [facility] [address] [place] [address] Glucose [Mass/Vol] 85 mg/dL Normal 74 - 99 [facility] Comment on above: Performed By: #### B MP #### [facility] [address] [place] [address] HCO3 (Bld) [Moles/Vol] 28 mmol/L Normal 21 - 32 [facility] Comment on above: Performed By: #### B MP #### [facility] [address] [place] [address] Potassium [Moles/Vol] 4.2 mmol/L Normal 3.5 - 5.3 [facility] Comment on above: Performed By: #### B MP #### [facility] [address] [place] [address] Sodium [Moles/Vol] 140 mmol/L Normal 136 - 145 [facility] Comment on above: Performed By: #### B MP #### [facility] [address] [place] [address] Urea nitrogen [Mass/Vol] 7 mg/dL Normal 6 - 23 [facility] Comment on above: Performed By: #### B MP #### [facility] [address] [place] [address] CBCon 07-12-2021 Erythrocyte distribution width (RBC) [Ratio] 13.9 % Normal 11.5 - 14.5 [facility] Comment on above: Performed By: #### C BC #### [facility] [address] [place] [address] Hematocrit (Bld) [Volume fraction] 33.8 % Low 36.0 - 46.0 [facility] Comment on above: Performed By: #### C BC #### [facility] [address] [place] [address] Hemoglobin (Bld) [Mass/Vol] 11.2 g/dL Low 12.0 - 16.0 [facility] Comment on above: Performed By: #### C BC #### [facility] [address] [place] [address] MCHC (RBC) [Mass/Vol] 33.1 g/dL Normal 32.0 - 36.0 [facility] Comment on above: Performed By: #### C BC #### [facility] [address] [place] [address] MCV (RBC) [Entitic vol] 108 fL High 80 - 100 [facility] Comment on above: Performed By: #### C BC #### [facility] [address] [place] [address] NUCLEATED RBC 0.0 /100 WBC Normal 0.0-0.0 [facility] Comment on above: Performed By: #### C BC #### [facility] [address] [place] [address] Platelets (Bld) [#/Vol] 438 10*3/uL Normal 150 - 450 [facility] Comment on above: Performed By: #### C BC #### [facility] [address] [place] [address] RBC 3.13 x10E12/L Low 4.00 - 5.20 [facility] Comment on above: Performed By: #### C BC #### [facility] [address] [place] [address] WBC (Bld) [#/Vol] 8.7 10*3/uL Normal 4.4 - 11.3 [facility] Comment on above: Performed By: #### C #### [facility] [address] [place] [address] Discharge Planning [id number] 0 07-12-2021 Discharge Planning Note2 Discharge Planning: Discharge Barriersnone Planned Dispositionhome Discharge Destinationhome AMPAC < 20no PCP/Next Provider Follow Up Scheduledyes [place] of Choice Explainedno Anticipated Discharge [id number] Discharge Planning 07/12/2021 @ 1540 Transitional Care Coordination Progress Note: Patient discussed during interdisciplinary rounds. Team members present: Attending and TCC Plan per Medical/Surgical team: UTI, cultures pending. PMH Stg 3 invasive SCCA. PCNT drain in place Status: observation Payor source: [facility] Plan Discharge disposition: Home with SO. Home care with [facility] just ended on 07/11. Pt declines the need for Home Care nurse. Pt independent with PCNT care. Potential Barriers: none ADOD: 07/13 Admission assessment completed at the bedside with the patient. See assessment tab for details. Pt's significant other will transport pt home when medically ready. Pari Abbott RN [phone] Transitional Coating Supervisor Note: 07/14/2021@ 14:47. Patient is medically ready for discharge. No home care is required. Coleen Villa RN [facility] [phone] 07/14/21 8076-discussed d/c instructions with pt who verbalized understanding prior to d/c. de-accessed right chest mediport pt tolerated well. pt left unit prior to being given printed script for atb therapy. attending notified. Yolanda mckinley, furniture shampooer: Discharge Planning Assessment [id number] Discharge Planning Assessment Completed byPari Abbott RNC Primary Contact Name and NumberMATT [phone], SO Prior Level of Functioningindependent with ADLs and SO helps with iADLs Independent with PCNT drain and site care Lives Withsignificant other Living Arrangementsmobile home; 3 steps to enter mobile home. Tub shower with seat Stated Reason for AdmissionABD PAIN(1) Arrived Fromemergency department (1) PCPsingh [facility] Falls/ Injury/ Need Assist with Ambulationno falls, no AD DME Supplier Name/Numbernone Home Care Agency/Support Servicesnone Diabetic/Supplies Needednone Hemodialysis Schedulenone Resource/Environmental Concernsnone(1) [place] Services Anticipated at Transitionnone(1) Readmission Within the [...] Profile - Adult v2 12-Jul-2021 00:17 Normal [facility] HCG,URINEon 07-12-2021 Beta HCG ( test) Ql (U) Negative Normal Negative [facility] Comment on above: Performed By: #### U [facility] #### [facility] [address] [place] [address] Nutrition Therapy-Assessment on 07-12-2021 Nutrition Therapy-Assessment Assessment Subjective/Objective: Note Type: Assessment Note Authored by: Registered Dietitian Spring Up Supervisor Pager Number: [phone] Nutrition Note: The patient is a 30 [...] Mouth: negative Nails: negative Estimated Needs: kcals/day: [id number] Predictive Equation Used: kcals/kg; 30-35 gms protein/day: [...] suggestions of meals/foods to try. Discussed utilizing [employer] for resources in her area. Education Provided to: patient Understanding of Diet: good Anticipated Compliance: fair Follow up: refer pt to outpatient nutrition therapy for follow up (likely closer to home) Nutrition Goals: Goals: Nutrition Therapy: consume prescribed supplement, electrolytes within normal limits NUTRITION R (more content not included)... Normal [facility] Order Reconciliationon 07-12 Order Reconciliation [...] tab(s) orally 3 times a day, As [id number]-Jul-2021 PM LORazepam Tablet (ATIVAN)DOSE = 1 mg Oral Every 8 Hours, PRN AnxietyLORazepam 1 mg oral tablet continued as the inpatient order LORazepam Percocet 5/325 oral tablet orally every 4-6 hours, As [id number]-Jul-2021 Reviewed and Held Zofran 4 mg oral tablet orally every 4 hours, As [id number]-Iof- 2021 PM Reviewed and Held Documentation of [...] 6 Hours, PRN Nausea and/or Vomiting Normal [facility] Patient Profile - Adult v2on 07-12-2021 Patient Profile - Adult v2 Profile: Initial Info: How to be Addressedrachael (1) Spoken Language PreferredEnglish (1) Source of Informationpatient Stated Reason for AdmissionABD PAIN Primary Contact Name and NumberMATT [phone] Wants Family/Rep Notified of Admissionyes, primary contact Notify PCPnotify PCP Informed of Patient Visiting Rightsyes Arrived Fromemergency department Patient Belongingsremains with patient Patient Belongings Remaining with Patientvision aids; cell phone/electronics; purse/wallet; clothing Medications Brought to Hospitalyes Medication Dispositionlocked in unit medication cabinet General Health: Blood Avoidance/Restrictionsno ne(1) Weight in kg48.6 kilogram(s) Weight in sxf125.1 pound(s) Weight Methodactual (measured) Scale Typestanding Height [...] From Triage - ED 11-Jul-2021 13:01 Normal [facility] BLOOD CULTURE, BACTERIALon 0 07-11-2021 BLOOD CULTURE, BACTERIAL PATIENT: LALY NAVAS LOCATION: [place] [address] BILL#: [id number] : 86 AGE: SEX: F ORDERED BY: LATANYA CUELLAR SOURCE: Blood COLLECTED: 07/11/21 14:43 ANTIBIOTICS AT BINA.: RECEIVED : 07/11/21 15:49 SITE: PERIPHERAL R E S U L T S BLOOD CULTURE, BACTERIAL FINAL 07/16/21 17:42 No Growth at 1 days No Growth at 2 days No Growth at 3 days No Growth at 4 days NO GROWTH - FINAL REPORT Normal [facility] Comment on above: Performed By: #### B LDC #### [facility] [address] [place] [address] BLOOD CULTURE, BACTERIAL PATIENT: LALY NAVAS LOCATION: [place] [address] BILL#: [id number] : 86 AGE: SEX: F ORDERED BY: LATANYA CUELLAR SOURCE: Blood COLLECTED: 07/11/21 14:42 ANTIBIOTICS AT BINA.: RECEIVED : 07/11/21 15:47 SITE: PERIPHERAL R E S U L T S BLOOD CULTURE, BACTERIAL FINAL 07/16/21 17:42 No Growth at 1 days No Growth at 2 days No Growth at 3 days No Growth at 4 days NO GROWTH - FINAL REPORT Normal [facility] Comment on above: Performed By: #### B LDC #### [facility] [address] [place] [address] CBC AND DIFFERENTIALon 07-11 % AUTOMATED IMMATURE GRAN 0.6 % Normal 0.0 - 0.9 [facility] Comment on above: Result Comment: Zoila ture Granulocyte Count (IG) includes promyelocytes, myelocytes and metamyelocytes but does not include bands. Percent differential counts (%) should be interpreted in the context of the absolute cell counts (cells/L). Performed By: #### U AMIC #### [facility] [address] [place] [address] Basophils (Bld) [#/Vol] 0.09 10*3/uL Normal 0.00 - 0.1 0 [facility] Comment on above: Performed By: #### U AMIC #### [facility] [address] [place] [address] Basophils/100 WBC (Bld) 1.0 % Normal 0.0 - 2.0 [facility] Comment on above: Performed By: #### U AMIC #### [facility] [address] [place] [address] Eosinophils (Bld) [#/Vol] 0.56 10*3/uL Normal 0.00 - 0.70 [facility] Comment on above: Performed By: #### U AMIC #### [facility] [address] [place] [address] Eosinophils/100 WBC (Bld) 6.2 % Normal 0.0 - 6.0 [facility] Comment on above: Performed By: #### U AMIC #### [facility] [address] [place] [address] Erythrocyte distribution width (RBC) [Ratio] 14.1 % Normal 11.5 - 14.5 [facility] Comment on above: Performed By: #### U AMIC #### [facility] [address] [place] [address] Hematocrit (Bld) [Volume fraction] 35.9 % Low 36.0 - 46.0 [facility] Comment on above: Performed By: #### U AMIC #### [facility] [address] [place] [address] Hemoglobin (Bld) [Mass/Vol] 12.3 g/dL Normal 12.0 - 16.0 [facility] Comment on above: Performed By: #### U AMIC #### [facility] [address] [place] [address] Lymphocytes (Bld) [#/Vol] 2.39 10*3/uL Normal 1.20 - 4.80 [facility] Comment on above: Performed By: #### U AMIC #### [facility] [address] [place] [address] Lymphocytes/100 WBC (Bld) 26.5 % Normal 13.0 - 44.0 [facility] Comment on above: Performed By: #### U AMIC #### [facility] [address] [place] [address] MCHC (RBC) [Mass/Vol] 34.3 g/dL Normal 32.0 - 36.0 [facility] Comment on above: Performed By: #### U AMIC #### [facility] [address] [place] [address] MCV (RBC) [Entitic vol] 106 fL High 80 - 100 [facility] Comment on above: Performed By: #### U AMIC #### [facility] [address] [place] [address] Monocytes (Bld) [#/Vol] 0.79 10*3/uL Normal 0.10 - 1.0 0 [facility] Comment on above: Performed By: #### U AMIC #### [facility] [address] [place] [address] Monocytes/100 WBC (Bld) 8.8 % Normal 2.0 - 10.0 [facility] Comment on above: Performed By: #### U AMIC #### [facility] [address] [place] [address] Neutrophils (Bld) [#/Vol] 5.13 10*3/uL Normal 1.20 - 7.70 [facility] Comment on above: Performed By: #### U AMIC #### [facility] [address] [place] [address] Neutrophils/100 WBC (Bld) 56.9 % Normal 40.0 - 80.0 [facility] Comment on above: Performed By: #### U AMIC #### [facility] [address] [place] [address] NUCLEATED RBC 0.0 /100 WBC Normal 0.0-0.0 [facility] Comment on above: Performed By: #### U AMIC #### [facility] [address] [place] [address] Platelets (Bld) [#/Vol] 477 10*3/uL High 150 - 450 [facility] Comment on above: Performed By: #### U AMIC #### [facility] [address] [place] [address] RBC 3.38 x10E12/L Low 4.00 - 5.20 [facility] Comment on above: Performed By: #### U AMIC #### [facility] [address] [place] [address] WBC (Bld) [#/Vol] 9.0 10*3/uL Normal 4.4 - 11.3 [facility] Comment on above: Performed By: #### U AMIC #### [facility] [address] [place] [address] COMPREHENSIVE PANELon 2020 Albumin [Mass/Vol] 4.0 g/dL Normal 3.4 - 5.0 [facility] Comment on above: Performed By: #### B MP #### [facility] [address] [place] [address] ALP [Catalytic activity/Vol] 65 U/L Normal 33 - 110 [facility] Comment on above: Performed By: #### B MP #### [facility] [address] [place] [address] ALT [Catalytic activity/Vol] 4 U/L Low 7 - 45 [facility] Comment on above: Result Comment: Sarah ents treated with Sulfasalazine may generate falsely decreased results for ALT. Performed By: #### B MP #### [facility] [address] [place] [address] Anion gap [Moles/Vol] 15 mmol/L Normal 10 - 20 [facility] Comment on above: Performed By: #### B MP #### [facility] [address] [place] [address] AST [Catalytic activity/Vol] 11 U/L Normal 9 - 39 [facility] Comment on above: Performed By: #### B MP #### [facility] [address] [place] [address] Bilirubin [Mass/Vol] 0.4 mg/dL Normal 0.0 - 1.2 [facility] Comment on above: Performed By: #### B MP #### [facility] [address] [place] [address] Calcium [Mass/Vol] 9.1 mg/dL Normal 8.6 - 10.6 [facility] Comment on above: Performed By: #### B MP #### [facility] [address] [place] [address] Chloride [Moles/Vol] 104 mmol/L Normal 98 - 107 [facility] Comment on above: Performed By: #### B MP #### [facility] [address] [place] [address] Creatinine [Mass/Vol] 0.69 mg/dL Normal 0.50 - 1.05 [facility] Comment on above: Performed By: #### B MP #### [facility] [address] [place] [address] GFR- AM. >60 Normal >60 [facility] Comment on above: Result Comment: CALC ULATIONS OF ESTIMATED GFR ARE PERFORMED USING THE MDRD STUDY EQUATION FOR THE IDMS-TRACEABLE CREATININE METHODS. CLIN CHEM 2007;53:766-72 Performed By: #### B MP #### [facility] [address] [place] [address] GFR-NON AM. >60 Normal >60 [facility] Comment on above: Performed By: #### B MP #### [facility] [address] [place] [address] Glucose [Mass/Vol] 79 mg/dL Normal 74 - 99 [facility] Comment on above: Performed By: #### B MP #### [facility] [address] [place] [address] HCO3 (Bld) [Moles/Vol] 23 mmol/L Normal 21 - 32 [facility] Comment on above: Performed By: #### B MP #### [facility] [address] [place] [address] Potassium [Moles/Vol] 3.8 mmol/L Normal 3.5 - 5.3 [facility] Comment on above: Performed By: #### B MP #### [facility] [address] [place] [address] Protein [Mass/Vol] 6.4 g/dL Normal 6.4 - 8.2 [facility] Comment on above: Performed By: #### B MP #### [facility] [address] [place] [address] Sodium [Moles/Vol] 138 mmol/L Normal 136 - 145 [facility] Comment on above: Performed By: #### B MP #### [facility] [address] [place] [address] Urea nitrogen [Mass/Vol] 8 mg/dL Normal 6 - 23 [facility] Comment on above: Performed By: #### B MP #### [facility] [address] [place] [address] COOX PANEL,VENOUSon 07-11-20 21 CO HGB 5.0 % Abnormal [facility] Comment on above: Result Comment: REF VALUES NONSMOKERS 0.5-1.5% SMOKERS 0.5-10.0% Performed By: #### C OOXV ####[id number] [place] [address] MET HGB 0.6 % Normal 0.0 - 1.5 [facility] Comment on above: Performed By: #### C OOXV ####[id number] [facility] [place] [address] CORONAVIRUS 2019 BY PCRon SARS-CoV-2 (COVID-19) RNA SUZI+probe Ql (Unsp spec) Not detected Normal Not Detected [facility] Comment on above: Result Comment: . This test has received FDA Emergency Use Authorization (EUA) and has been verified by [facility] ([facility]). This test is only authorized for the duration of time that circumstances exist to justify the authorization of the emergency use of in vitro diagnostic tests for the detection of SARS-CoV-2 virus and/or diagnosis of COVID-19 infection under section 564(b)(1) of the Act, 21 U.S.C. 360bbb-3(b)(1), unless the authorization is terminated or revoked sooner. [facility] is certified under CLIA-88 as qualified to perform high complexity testing. Testing is performed in the [facility] located at [address] [place] [address]. SARS-CoV-2/Flu/RSV Multiplex Test: Fact sheet for providers: https://www.fda.gov/media/372324/download Fact sheet for patients: https://www.fda.gov/media/809054/download Performed By: #### U AMIC #### [address] [place] [address] Lab Specimen Source Nasal, Nasopharyngeal Normal [facility] Comment on above: Performed By: #### U AMIC #### [facility] [address] [facility] [place] [address] DATE OF SYMPTOM ONSET [YYYYMMDD]? [id number] Normal [facility] Comment on above: Performed By: #### U AMIC #### [address] [place] [address] Consult-Urologyon 07-11-2021 Consult-Urology Service: Service: Urology Consult: [...] Known Allergies: Objective: Objective Information: T PRBPSpO2 [id number]/9799% Date/Time07/11 13: 13: 13:019 13:019 13:01 Range(36.8C [...] afebrile, normotensi (more content not included)... Normal [facility] Covid 19 Resultson 1 SARS-CoV-2 [...] You may also be contacted by the [facility] to see if any of your close [...] or Naproxen (Aleve) can also be used. Ezic-owc-zavyofh cough and cold medicines can be used according to the instructions on the package. Some iepk-xvz-oycvdmr medicines also contain acetaminophen. Make sure you [...] water are not available, use alcohol-based hand soldering machine operator automatic. Avoid touching your eyes, nose, and mouth [...] 24 liu (more content not included)... Normal [facility] Provider Note - ED v3on Provider Note [...] SIGNIFICANT EVENTS: (more content not included)... Normal [facility] Risk Screen - Adult Emergenc [...] material; verbal instruction Cultural Considerationsnone Developmental Considerationsnone Episcopal Considerationsnone Learning Assessment (Other Learner): Learning Assessment (Other Learner): Other learner availableno Pressure Injury/TB/Substance: Pressure Injury: Pressure Injury Present on Admissionno Do you have a coughno Smoking Statusnever smoker Alcohol Usedenies Resources OfferedThrive consult ( for ED's that have services) Admission Risk Screen: Significant IndicatorsComplete CAGE: CAGE: Is this an injured patient at a Trauma Center ([facility]/[place] /[place]): yes C: Have you ever felt you needed to Cut down on your drinking: no A: Have people Annoyed you by criticizing your drinking: no G: Have you ever felt Guilty about drinking: no E: Have you ever felt you needed a drink first thing in the morning (Eye-teradata architect) to steady your nerves or to get rid of hangover: no Electronic Signatures: Elkin Almanza (RN) (Signed 11-Jul-2021 20:40) Authored: Preferred Language, Advanced Directives, Family Violence Adult, Learning Assessment (Patient), Learning Assessment (Other Learner), Pressure Injury/TB/Substance, Pressure Injury, CAGE Last Updated: 11-Jul-2021 20:40 by Elkin Almanza (RN) Normal [facility] Triage - EDon 07-11-2021 Triage [...] BMI (kg/m2): 17.088 Calculated BSA (m2) 1.49 Omega Coma Scale: Best Eye Response: (E4) spontaneous Best Motor Response: (M6) obeys commands Best Verbal Response: (V5) oriented Omega Score: 15 Omega Assessment Qualifiers: patient not sedated/intubated and no [...] Past Medical History, Active Electronic Signatures: David Riggins) (Signed 11-Jul-2021 13:06) Entered: Risk Screens, Pain, Travel History, Chart Review, Past Medical History Authored: Quick Triage, Risk Screens, Pain, Travel History, Chart Review, Past Medical History Last Updated: 11-Jul-2021 13:06 by David Riggins) Normal [facility] UA MICROSCOPICon 07-11-2021 BACTERIA 1+ /HPF Abnormal [facility] Comment on above: Performed By: #### U AMIC #### [facility] [address] [place] [address] Mucus Ql (Urine sed) 4+ /LPF Normal [facility] Comment on above: Performed By: #### U AMIC #### [facility] [address] [place] [address] RBC 9 /HPF Abnormal 0-5 [facility] Comment on above: Performed By: #### U AMIC #### [facility] [address] [place] [address] WBC (U) [#/Vol] /uL Abnormal 0-5 [facility] Comment on above: Performed By: #### U AMIC #### [facility] [address] [place] [address] WBC CLUMPS OCC Normal [facility] Comment on above: Performed By: #### U AMIC #### [facility] [address] [place] [address] Lab Specimen Source Normal [facility] Comment on above: Performed By: #### U AMIC #### [facility] [address] [place] [address] Performed By: #### B MP #### [facility] [address] [place] [address] URINALYSIS WITH CULTURE IF I NDICATEDon 07-11-2021 Appearance (U) HAZY Normal CLEAR [facility] Comment on above: Performed By: #### B MP #### [facility] [address] [place] [address] Bilirubin Ql (U) Negative Normal NEGATIVE [facility] Comment on above: Performed By: #### B MP #### [facility] [address] [place] [address] Color (U) YELLOW Normal STRAW,YELLO W [facility] Comment on above: Performed By: #### B MP #### [facility] [address] [place] [address] Glucose Ql (U) Negative Normal NEGATIVE [facility] Comment on above: Performed By: #### B MP #### [facility] [address] [place] [address] Hemoglobin Ql (U) SMALL (1+) Abnormal NEGATIVE [facility] Comment on above: Performed By: #### B MP #### [facility] [address] [place] [address] Ketones Ql (U) Negative Normal NEGATIVE [facility] Comment on above: Performed By: #### B MP #### [facility] [address] [place] [address] Leukocyte esterase Test strip Ql (U) LARGE (3+) Abnormal NEGATIVE [facility] Comment on above: Performed By: #### B MP #### [facility] [facility] [id number] [place] [address] Nitrite Ql (U) Positive Abnormal NEGATIVE [facility] Comment on above: Performed By: #### B MP #### [facility] [address] [place] [address] pH (U) 6.0 [pH] Normal 5.0 - 8.0 [facility] Comment on above: Performed By: #### B MP #### [facility] [address] [place] [address] Protein Ql (U) 100 (2+) Abnormal NEGATIVE [facility] Comment on above: Performed By: #### B MP #### [facility] [address] [place] [address] Specific gravity (U) [Rel density] 1.010 Normal 1.005 - 1.035 [facility] Comment on above: Performed By: #### B MP #### [facility] [address] [place] [address] Urobilinogen (U) [Mass/Vol] mg/dL Normal 0.0 - 1.9 [facility] Comment on above: Performed By: #### B MP #### [facility] [address] [place] [address] URINE CULTURE,BACTERIALon URINE CULTURE,BACTERIAL PATIENT: LALY NAVAS LOCATION: [address]#: [id number] : 86 AGE: SEX: F ORDERED BY: LATANYA CUELLAR SOURCE: URINE COLLECTED: 07/11/21 15:06 ANTIBIOTICS AT BINA.: RECEIVED : 07/11/21 16:38 SITE: Tino [facility] S U L T S URINE CULTURE,BACTERIAL [...] DOSE DEPENDENT NS=NONSUSCEPTIBLE X=REPORTED IN ERROR Normal [facility] Comment on above: Performed By: #### U [facility] #### [facility] [address] [place] [address] VENOUS FULL PANELon 07-11-20 Anion gap [Moles/Vol] 8 mmol/L Low 10 - 25 [facility] Comment on above: Performed By: #### V FPA3 ####[id number] [place] [address] BASE EXCESS-BLOOD 0.3 mmol/L Normal -2.0 - 3.0 [facility] Comment on above: Performed By: #### V FPA3 ####[id number] [place] [address] BICARB, CALCULATED 24.6 mmol/L Normal 22.0 - 26.0 [facility] Comment on above: Performed By: #### V FPA3 ####[id number] [place] [address] CALCIUM,IONIZED 1.21 mmol/L Normal 1.10 - 1.33 [facility] Comment on above: Performed By: #### V FPA3 ####[id number] [place] [address] Chloride [Moles/Vol] 106 mmol/L Normal 98 - 107 [facility] Comment on above: Performed By: #### V FPA3 ####[id number] [place] [address] Glucose [Mass/Vol] 84 mg/dL Normal 74 - 99 [facility] Comment on above: Performed By: #### V FPA3 ####[id number] [place] [address] Hematocrit (Bld) [Volume fraction] 38.0 % Normal 36.0 - 46.0 [facility] Comment on above: Performed By: #### V FPA3 ####[id number] [place] [address] HGB,CALCULATED 12.9 g/dL Normal 12.0 - 16.0 [facility] Comment on above: Performed By: #### V FPA3 ####[id number] [place] [address] Lactate [Moles/Vol] 0.8 mmol/L Normal 0.4 - 2.0 [facility] Comment on above: Performed By: #### V FPA3 ####[id number] [place] [address] Oxygen (Bld) [Partial pressure] 37 mm[Hg] Normal 35 - 45 [facility] Comment on above: Performed By: #### V FPA3 ####[id number] [place] [address] PATIENT TEMPERATURE 37.0 degrees C Normal [facility] Comment on above: Result Comment: NOTE : PATIENT RESULTS ARE NOT CORRECTED FOR TEMPERATURE. Performed By: #### V FPA3 ####[id number] [place] [address] PCO2 38 mmHg Low 41 - 51 [facility] Comment on above: Performed By: #### V FPA3 ####[id number] [place] [address] pH (Bld) 7.42 [pH] Normal 7.33 - 7.43 [facility] Comment on above: Performed By: #### V FPA3 ####[id number] [place] [address] Potassium [Moles/Vol] 3.8 mmol/L Normal 3.5 - 5.3 [facility] Comment on above: Performed By: #### V FPA3 ####[id number] [place] [address] SO2 76 % High 45 - 75 [facility] Comment on above: Performed By: #### V FPA3 ####[id number] [place] [address] Sodium [Moles/Vol] 135 mmol/L Low 136 - 145 [facility] Comment on above: Performed By: #### V FPA3 ####[id number] [place] [address] CONVERT NEPHROSTOMY CATH-NEP HROURETERAL CATH,PERC INCLUDE NEPHROSTO/URETEROGRAM [...] or ureteral stent. COMPARISON: None. ACCESSION NUMBER(S): [id number]; [id number]; [id number] ORDERING CLINICIAN: POLO PLUMMER TECHNIQUE: INTERVENTIONALIST(S): Attending: [...] Maximum sterile barrier technique was implemented. Initial director of litigation fluoroscopic image demonstrates an intact percutaneous nephrostomy tube in satisfactory position. ANTEGRADE PYELOGRAM FINDINGS: Dilute contrast was then injected through the existing percutaneous nephrostomy tube. This demonstrated Initial director of litigation fluoroscopic spot image demonstrates an intact existing [...] removed over the wire. Subsequently, a 5 Guamanian Kumpe catheter was advanced over the wire and the wire catheter combination were advanced into the distal ureter attempt was made to advanced wire past the stricture, which was unsuccessful. The Kumpe catheter was removed and a 9 Guamanian x 30 cm peel-away sheath was advanced [...] and a 4 mm x 4 mm [place] balloon was advanced over the wire. And balloon dilatation of the distal left ureter was performed under fluoroscopy. An appropriate measurement was taken and a new 8.5 Fr x 24 cm nephroureteral stent/catheter was subsequently inserted over the guidewire. The guidewire and nephrostomy inner stylet were removed. The self-formin (more content not included)... Normal [facility] DIL/NEPH/UREon 07-02-2021 DIL/NEPH/URE Patient Name: [...] or ureteral stent. COMPARISON: None. ACCESSION NUMBER(S): [id number]; [id number]; [id number] ORDERING CLINICIAN: POLO PLUMMER TECHNIQUE: INTERVENTIONALIST(S): Attending: [...] Maximum sterile barrier technique was implemented. Initial director of litigation fluoroscopic image demonstrates an intact percutaneous nephrostomy tube in satisfactory position. ANTEGRADE PYELOGRAM FINDINGS: Dilute contrast was then injected through the existing percutaneous nephrostomy tube. This demonstrated Initial director of litigation fluoroscopic spot image demonstrates an intact existing [...] removed over the wire. Subsequently, a 5 [place] Kumpe catheter was advanced over the wire and the wire catheter combination were advanced into the distal ureter attempt was made to advanced wire past the stricture, which was unsuccessful. The Kumpe catheter was removed and a 9 Guamanian x 30 cm peel-away sheath was advanced [...] and a 4 mm x 4 mm [place] balloon was advanced over the wire. And balloon dilatation of the distal left ureter was performed under fluoroscopy. An appropriate measurement was taken and a new 8.5 Fr x 24 cm nephroureteral stent/catheter was subsequently inserted over the guidewire. The guidewire and nephrostomy inner stylet were removed. The self-formin (more content not included)... Normal [facility] DIL/URETERon 07-02-2021 DIL/URETER Patient Name: [...] or ureteral stent. COMPARISON: None. ACCESSION NUMBER(S): [id number]; [id number]; [id number] ORDERING CLINICIAN: POLO PLUMMER TECHNIQUE: INTERVENTIONALIST(S): Attending: [...] Maximum sterile barrier technique was implemented. Initial director of litigation fluoroscopic image demonstrates an intact percutaneous nephrostomy tube in satisfactory position. ANTEGRADE PYELOGRAM FINDINGS: Dilute contrast was then injected through the existing percutaneous nephrostomy tube. This demonstrated Initial director of litigation fluoroscopic spot image demonstrates an intact existing [...] removed over the wire. Subsequently, a 5 [place] Kumpe catheter was advanced over the wire and the wire catheter combination were advanced into the distal ureter attempt was made to advanced wire past the stricture, which was unsuccessful. The Kumpe catheter was removed and a 9 Guamanian x 30 cm peel-away sheath was advanced [...] and a 4 mm x 4 mm [place] balloon was advanced over the wire. And balloon dilatation of the distal left ureter was performed under fluoroscopy. An appropriate measurement was taken and a new 8.5 Fr x 24 cm nephroureteral stent/catheter was subsequently inserted over the guidewire. The guidewire and nephrostomy inner stylet were removed. The self-formin (more content not included)... Normal [facility] Office Visit (Urology)on Follow-up visit Orders SocHx: Current smoker Tobacco Use Screening; Status:Complete; Done: [id number] Perform:Not Applicable;Ordered; For:SocHx: Current smoker; Ordered By:Beth [...] Chief Complaint left NT History of Present Jajrdyu62 year old female diagnosed with cervical cancer [...] UC ORGANISM 1: NO SIGNIFICANT GROWTH Normal [facility] Comment on above: Performed By: #### M 120.0100 #### [facility] - LABORATORY [address] [place] [address] CA 125on 04-26-2020 CA 125 21 U/mL Normal <39 [facility] Comment on above: Performed By: #### C A125 #### [facility] Routine Lab [address] [id number] GC/Chlamydia Amp, Uron 04-06 Chlamydia Amplif, Ur Normal [facility] Comment on above: Result Comment: Nega tive for For screening asymptomatic women, a vaginal swab specimen (APTIMA vaginal swab 926032) is optimal. Urine specimens have reduced sensitivity for Chlamydia trachomatis or Neisseria gonorrhoeae infection in female patients without symptoms. This test was developed and its performance characteristics determined by [facility]'s [facility] [place] ([facility]). It has not been cleared or approved by the FDA. RT [facility] is regulated under CLIA as qualified to perform high complexity testing. This test is used for clinical purposes. It should not be regarded as investigational or for research. Chlamydia For screening asymptomatic women, a vaginal swab specimen (APTIMA vaginal swab 955931) is optimal. Urine specimens have reduced sensitivity for Chlamydia trachomatis or Neisseria gonorrhoeae infection in female patients without symptoms. This test was developed and its performance characteristics determined by [facility] [place] ([facility]). It has not been cleared or approved by the FDA. RT [facility] is regulated under CLIA as qualified to perform high complexity testing. This test is used for clinical purposes. It should not be regarded as investigational or for research. trachomatis by For screening asymptomatic women, a vaginal swab specimen (APTIMA vaginal swab 754101) is optimal. Urine specimens have reduced sensitivity for Chlamydia trachomatis or Neisseria gonorrhoeae infection in female patients without symptoms. This test was developed and its performance characteristics determined by [facility] [place] ([facility]). It has not been cleared or approved by the FDA. [facility] is regulated under CLIA as qualified to perform high complexity testing. This test is used for clinical purposes. It should not be regarded as investigational or for research. amplification. For screening asymptomatic women, a vaginal swab specimen (APTIMA vaginal swab 894616) is optimal. Urine specimens have reduced sensitivity for Chlamydia trachomatis or Neisseria gonorrhoeae infection in female patients without symptoms. This test was developed and its performance characteristics determined by [facility] and [facility] [place] ([facility]). It has not been cleared or approved by the FDA. [facility] is regulated under CLIA as qualified to perform high complexity testing. This test is used for clinical purposes. It should not be regarded as investigational or for research. Performed By: #### U GCCT #### [facility] [place] [facility] Routine Lab [address] [place], [place] [address] GC Amplification, Ur NGNEG Normal [facility] Comment on above: Performed By: #### U GCCT #### [facility] [place] [facility] Routine Lab [address] [place], [place] [address] GC/Chlamydia Amp, Uron 04-03 Chlamydia Amplif, Ur Normal [facility] Comment on above: Result Comment: Nega tive for For screening asymptomatic women, a vaginal swab specimen (APTIMA vaginal swab 380791) is optimal. Urine specimens have reduced sensitivity for Chlamydia trachomatis or Neisseria gonorrhoeae infection in female patients without symptoms. This test was developed and its performance characteristics determined by [facility] and [facility] [place] ([facility]). It has not been cleared or approved by the FDA. [facility] is regulated under CLIA as qualified to perform high complexity testing. This test is used for clinical purposes. It should not be regarded as investigational or for research. Chlamydia For screening asymptomatic women, a vaginal swab specimen (APTIMA vaginal swab 046832) is optimal. Urine specimens have reduced sensitivity for Chlamydia trachomatis or Neisseria gonorrhoeae infection in female patients without symptoms. This test was developed and its performance characteristics determined by [facility] [place] ([facility]). It has not been cleared or approved by the FDA. RT [facility] is regulated under CLIA as qualified to perform high complexity testing. This test is used for clinical purposes. It should not be regarded as investigational or for research. trachomatis by For screening asymptomatic women, a vaginal swab specimen (APTIMA vaginal swab 873092) is optimal. Urine specimens have reduced sensitivity for Chlamydia trachomatis or Neisseria gonorrhoeae infection in female patients without symptoms. This test was developed and its performance characteristics determined by [facility] [place] ([facility]). It has not been cleared or approved by the FDA. RT [facility] is regulated under CLIA as qualified to perform high complexity testing. This test is used for clinical purposes. It should not be regarded as investigational or for research. amplification. For screening asymptomatic women, a vaginal swab specimen (APTIMA vaginal swab 132860) is optimal. Urine specimens have reduced sensitivity for Chlamydia trachomatis or Neisseria gonorrhoeae infection in female patients without symptoms. This test was developed and its performance characteristics determined by [facility] [place] ([facility]). It has not been cleared or approved by the FDA. RT [facility] is regulated under CLIA as qualified to perform high complexity testing. This test is used for clinical purposes. It should not be regarded as investigational or for research. Performed By: #### U GCCT #### [facility] Routine Lab [address] [place] [id number] GC Amplification, Ur NGNEG Normal [facility] Comment on above: Performed By: #### U GCCT #### [facility] Routine Lab [address], [place] [id number] Vital Signs Date Time Vital Sign Value Performing Clinician Facility 06-02-2025 02:54-0400 Body temperature 98.6 [degF] Dr. Jatin Garcia MD Work Phone: [place] 06-02-2025 02:54-0400 Diastolic blood pressure 75 mm[Hg] Dr. Jatin Garcia MD Work Phone: 7(050)044-110970 [place] [address] 06-02-2025 02:54-0400 Heart rate 75 /min Dr. Jatin Garcia MD Work Phone: 1(442)273-359965 [place] [address] 06-02-2025 02:54-0400 Respiratory rate 18 /min Dr. Jatin Garcia MD Work Phone: 6(244)775-023865 [place] [address] 06-02-2025 02:54-0400 SaO2% (BldA) [Mass fraction] 98 % Dr. Jatin Garcia MD Work Phone: 3(439)342-385965 [place] [address] 06-02-2025 02:54-0400 Systolic blood pressure 118 mm[Hg] Dr. Jatin Garcia MD Work Phone: 4(620)478-889565 [place] [address] 06-01-2025 23:55-0400 Body height 165.[address] Jatin Garcia MD Work Phone: 7(377)914-477865 [place] [address] 06-01-2025 23:55-0400 Body mass index (BMI) [Ratio] 20 kg/m2 Dr. Jatin Garcia MD Work Phone: 8(606)027-475365 [place] [address] 06-01-2025 23:55-0400 Body weight 54.[address] Jatin Garcia MD Work Phone: 5(240)373-115170 [place] [address] 04-09-2025 02:52-0400 Body temperature 98 [degF] Dr. Jatin Garcia MD Work Phone: 7(692)169-237970 [place] [address] 04-09-2025 02:52-0400 Diastolic blood pressure 72 mm[Hg] Dr. Jatin Garcia MD Work Phone: 4(078)734-137570 [place] [address] 04-09-2025 02:52-0400 Heart rate 81 /min Dr. Jatin Garcia MD Work Phone: 4(661)563-798870 [place] [address] 04-09-2025 02:52-0400 Respiratory rate 14 /min Dr. Jatin Garcia MD Work Phone: 8(176)704-577170 [place] [address] 04-09-2025 02:52-0400 SaO2% (BldA) [Mass fraction] 98 % Dr. Jatin Garcia MD Work Phone: [place] 04-09-2025 02:52-0400 Systolic blood pressure 118 mm[Hg] Dr. Jatin Garcia MD Work Phone: [place] 04-09-2025 00:20-0400 Body height 165.[address] Jatin Garcia MD Work Phone: [place] 04-09-2025 00:20-0400 Body mass index (BMI) [Ratio] 22.4 kg/m2 Dr. Jatin Garcia MD Work Phone: [place] 04-09-2025 00:20-0400 Body weight [address] Jatin Garcia MD Work Phone: [place] 03-15-2025 19:03-0400 Diastolic Blood Pressure Non-Invasive 91 mm[Hg] GUCCI ALEXANDRE MD [address] [place] [address] 03-15-2025 19:03-0400 Heart rate 77 /min GUCCI ALEXANDRE MD [address] [place] [address] 03-15-2025 19:03-0400 Respiratory rate 18 /min GUCCI ALEXANDRE MD [address] [place] [address] 03-15-2025 19:03-0400 Systolic Blood Pressure Non-Invasive 158 mm[Hg] GUCCI ALEXANDRE MD [address] [place] [address] 03-15-2025 16:48-0400 Diastolic Blood Pressure Non-Invasive 87 mm[Hg] GUCCI ALEXANDRE MD [facility] 03-15-2025 16:48-0400 Heart rate 67 /min GUCCI ALEXANDRE MD [address] [place] [address] 03-15-2025 16:48-0400 Respiratory rate 18 /min GUCCI ALEXANDRE MD [address] [place] [address] 03-15-2025 16:48-0400 Systolic Blood Pressure Non-Invasive 144 mm[Hg] GUCCI ALEXANDRE MD [address] [place] [address] 03-15-2025 14:52-0400 Body temperature 98.42 [degF] GUCCI ALEXANDRE MD [facility] 03-15-2025 14:52-0400 Body weight 53.1 kg GUCCI ALEXANDRE MD [facility] 03-15-2025 14:52-0400 Diastolic Blood Pressure Non-Invasive 86 mm[Hg] GUCCI ALEXANDRE MD [facility] 03-15-2025 14:52-0400 Heart rate 69 /min GUCCI ALEXANDRE MD [facility] 03-15-2025 14:52-0400 Respiratory rate 18 /min GUCCI ALEXANDRE MD [facility] 03-15-2025 14:52-0400 Systolic Blood Pressure Non-Invasive 130 mm[Hg] GUCCI ALEXANDRE MD [facility] 03-09-2025 16:36-0400 Diastolic Blood Pressure Non-Invasive 92 mm[Hg] DELMAR ALEC DO [facility] 03-09-2025 16:36-0400 Heart rate 57 /min DELMAR ALEC DO [facility] 03-09-2025 16:36-0400 Respiratory rate 18 /min DELMAR ALEC DO [facility] 03-09-2025 16:36-0400 Systolic Blood Pressure Non-Invasive 142 mm[Hg] DELMAR ALEC DO [facility] 03-09-2025 14:20-0400 Diastolic Blood Pressure Non-Invasive 86 mm[Hg] DELMAR ALEC DO [facility] 03-09-2025 14:20-0400 Heart rate 80 /min DELMAR ALEC DO [facility] 03-09-2025 14:20-0400 Respiratory rate 18 /min DELMAR ALEC DO [facility] 03-09-2025 14:20-0400 Systolic Blood Pressure Non-Invasive 130 mm[Hg] DELMAR ALEC DO [facility] 03-09-2025 12:17-0400 Body temperature 96.98 [degF] DELMAR MICHAEL DO [facility] 03-09-2025 12:17-0400 Body weight 53 kg DELMAR MICHAEL DO [facility] 03-09-2025 12:17-0400 Diastolic Blood Pressure Non-Invasive 95 mm[Hg] DELMAR MICHAEL DO [facility] 03-09-2025 12:17-0400 Heart rate 81 /min DELMAR MICHAEL DO [facility] 03-09-2025 12:17-0400 Respiratory rate 18 /min DELMAR MICHAEL DO [facility] 03-09-2025 12:17-0400 Systolic Blood Pressure Non-Invasive 134 mm[Hg] DELMAR MICHAEL DO [facility] 02-16-2025 10:00-0400 Body temperature 96.98 [degF] PINA PANTOJA WAGE AND SALARY ADMINISTRATOR-TECHNICAL PROGRAM MANAGER [facility] 02-16-2025 10:00-0400 Heart rate 63 /min PINA PANTOJA [employer]AGE [employer] SALARY ADMINISTRATOR-TECHNICAL PROGRAM MANAGER [facility] 02-16-2025 10:00-0400 Respiratory rate 18 /min PINA PANTOJA [employer]AGE AND SALARY ADMINISTRATOR-TECHNICAL PROGRAM MANAGER [facility] 02-16-2025 10:00-0400 Systolic Blood Pressure Non-Invasive 122 mm[Hg] PINA PANTOJA WAGE AND SALARY ADMINISTRATOR-TECHNICAL PROGRAM MANAGER [facility] 02-16-2025 09:40-0400 Heart rate 60 /min PINA PANTOJA [employer] SALARY ADMINISTRATOR-TECHNICAL PROGRAM MANAGER [facility] 02-16-2025 09:40-0400 Body temperature 97.52 [degF] PINA PANTOJA [employer]AGE AND SALARY ADMINISTRATOR-TECHNICAL PROGRAM MANAGER [facility] 02-16-2025 09:40-0400 Diastolic Blood Pressure Non-Invasive 79 mm[Hg] PINA PANTOJA [employer]AGE AND SALARY ADMINISTRATOR-TECHNICAL PROGRAM MANAGER [facility] 02-16-2025 09:40-0400 Mean blood pressure 88 mm[Hg] PINA PANTOJA WAGE AND SALARY ADMINISTRATOR-TECHNICAL PROGRAM MANAGER [facility] 02-16-2025 09:40-0400 Respiratory rate 16 /min PINA PANTOJA [employer]AGE AND SALARY ADMINISTRATOR-TECHNICAL PROGRAM MANAGER [facility] 02-16-2025 09:40-0400 Systolic Blood Pressure Non-Invasive 104 mm[Hg] PINA PANTOJA WAGE AND SALARY ADMINISTRATOR-TECHNICAL PROGRAM MANAGER [facility] 02-16-2025 09:25-0400 Diastolic Blood Pressure Non-Invasive 71 mm[Hg] PINA PANTOJA WAGE AND SALARY ADMINISTRATOR-TECHNICAL PROGRAM MANAGER [facility] 02-16-2025 09:25-0400 Mean blood pressure 83 mm[Hg] PINA PANTOJA WAGE AND SALARY ADMINISTRATOR-TECHNICAL PROGRAM MANAGER [facility] 02-16-2025 09:25-0400 Systolic Blood Pressure Non-Invasive 107 mm[Hg] PINA PANTOJA WAGE AND SALARY ADMINISTRATOR-TECHNICAL PROGRAM MANAGER [facility] 02-16-2025 09:25-0400 Heart rate 67 /min PINA PANTOJA [employer]AGE AND SALARY ADMINISTRATOR-TECHNICAL PROGRAM MANAGER [facility] 02-16-2025 09:25-0400 Respiratory rate 16 /min PINA PANTOJA WAGE AND SALARY ADMINISTRATOR-TECHNICAL PROGRAM MANAGER [facility] 02-16-2025 09:10-0400 Mean blood pressure 101 mm[Hg] PINA PANTOJA WAGE AND SALARY ADMINISTRATOR-TECHNICAL PROGRAM MANAGER [facility] 02-16-2025 09:10-0400 Blood Pressure Cuff Size PINA PANTOJA [employer]AGE AND SALARY ADMINISTRATOR-TECHNICAL PROGRAM MANAGER [facility] 02-16-2025 09:10-0400 Blood Pressure Location PINA PANTJOA WAGE AND SALARY ADMINISTRATOR-TECHNICAL PROGRAM MANAGER [facility] 02-16-2025 09:10-0400 Blood Pressure Method PINA PANTOJA WAGE AND SALARY ADMINISTRATOR-TECHNICAL PROGRAM MANAGER [facility] 02-16-2025 09:10-0400 Body temperature 97.52 [degF] PINA PANTOJA WAGE AND SALARY ADMINISTRATOR-TECHNICAL PROGRAM MANAGER [facility] 02-16-2025 09:00-0400 Respiratory Rate - Anes 4 br/min PINA PANTOJA WAGE AND SALARY ADMINISTRATOR-TECHNICAL PROGRAM MANAGER [facility] 02-16-2025 08:55-0400 Respiratory Rate - Anes 19 br/min PINA PANTOJA WAGE AND SALARY ADMINISTRATOR-TECHNICAL PROGRAM MANAGER [facility] 02-16-2025 08:50-0400 Respiratory Rate - Anes 10 br/min PINA PANTOJA WAGE AND SALARY ADMINISTRATOR-TECHNICAL PROGRAM MANAGER [facility] 02-16-2025 06:37-0400 Body height 167.6 cm PINA PANTOJA WAGE AND SALARY ADMINISTRATOR-TECHNICAL PROGRAM MANAGER [facility] 02-16-2025 06:37-0400 Body weight 110.7 kg PINA PANTOJA [employer]AGE AND SALARY ADMINISTRATOR-TECHNICAL PROGRAM MANAGER [facility] 02-16-2025 06:37-0400 Heart rate 70 /min PINA PANTOJA [employer]AGE AND SALARY ADMINISTRATOR-TECHNICAL PROGRAM MANAGER [facility] 12-22-2024 12:10-0500 Body temperature 96.98 [degF] NASRIN ISABEL MD [facility] 12-22-2024 12:10-0500 Diastolic Blood Pressure Non-Invasive 66 mm[Hg] NASRIN ISABEL MD [facility] 12-22-2024 12:10-0500 Heart rate 54 /min NASRIN ISABEL MD [facility] 12-22-2024 12:10-0500 Respiratory rate 16 /min NASRIN ISABEL MD [facility] 12-22-2024 12:10-0500 Systolic Blood Pressure Non-Invasive 106 mm[Hg] NASRIN ISABEL MD [facility] 12-22-2024 11:54-0500 Body temperature 97.34 [degF] NASRIN ISABEL MD [facility] 12-22-2024 11:54-0500 Diastolic Blood Pressure Non-Invasive 77 mm[Hg] NASRIN ISABEL MD [facility] 12-22-2024 11:54-0500 Heart rate 53 /min NASRIN ISABEL MD [facility] 12-22-2024 11:54-0500 Mean blood pressure 89 mm[Hg] NASRIN ISABEL MD [facility] 12-22-2024 11:54-0500 Respiratory rate 18 /min NASRIN ISABEL MD [facility] 12-22-2024 11:54-0500 Systolic Blood Pressure Non-Invasive 117 mm[Hg] NASRIN ISABEL MD [facility] 12-22-2024 11:35-0500 Diastolic Blood Pressure Non-Invasive 80 mm[Hg] NASRIN ISABEL MD [facility] 12-22-2024 11:35-0500 Heart rate 51 /min NASRIN ISABEL MD [facility] 12-22-2024 11:35-0500 Mean blood pressure 89 mm[Hg] NASRIN ISABEL MD [facility] 12-22-2024 11:35-0500 Respiratory rate 18 /min NASRIN ISABEL MD [facility] 12-22-2024 11:35-0500 Systolic Blood Pressure Non-Invasive 111 mm[Hg] NASRIN ISABEL MD [facility] 12-22-2024 11:20-0500 Body temperature 97.16 [degF] NASRIN ISABEL MD [facility] 12-22-2024 11:20-0500 Heart rate 76 /min NASRIN ISABEL MD [facility] 12-22-2024 11:20-0500 Mean blood pressure 108 mm[Hg] NASRIN ISABEL MD [facility] 12-22-2024 11:15-0500 Respiratory Rate - Anes 0 br/min NASRIN ISABEL MD [facility] 12-22-2024 11:10-0500 Respiratory Rate - Anes 6 br/min NASRIN ISABEL MD [facility] 12-22-2024 11:05-0500 Respiratory Rate - Anes 13 br/min ANSRIN ISABEL MD [facility] 12-22-2024 10:45-0500 Body temperature 96.8 [degF] NASRIN ISABEL MD [facility] 12-22-2024 10:30-0500 Body temperature 96.8 [degF] NASRIN ISABEL MD [facility] 12-22-2024 10:15-0500 Body temperature 96.8 [degF] NASRIN ISABEL MD [facility] 12-22-2024 08:08-0500 Body height 167.6 cm NASRIN ISABEL MD [facility] 12-22-2024 08:08-0500 Body weight 53.6 kg NASRIN ISABEL MD [facility] 12-22-2024 08:08-0500 Heart rate 57 /min NASRIN ISABEL MD [facility] 08-11-2024 12:08-0400 Body temperature 96.62 [degF] NASRIN ISABEL MD [facility] 08-11-2024 12:08-0400 Diastolic Blood Pressure Non-Invasive 94 mm[Hg] NASRIN ISABEL MD [facility] 08-11-2024 12:08-0400 Heart rate 80 /min NASRIN ISABEL MD [facility] 08-11-2024 12:08-0400 Heart rate 64 /min NASRIN ISABEL MD [facility] 08-11-2024 12:08-0400 Respiratory rate 16 /min NASRIN ISABEL MD [facility] 08-11-2024 12:08-0400 Systolic Blood Pressure Non-Invasive 137 mm[Hg] NASRIN ISABEL MD [facility] 08-11-2024 11:44-0400 Heart rate 59 /min NASRIN ISABEL MD [facility] 08-11-2024 11:35-0400 Body temperature 96.8 [degF] NASRIN ISABEL MD [facility] 08-11-2024 11:35-0400 Diastolic Blood Pressure Non-Invasive 97 mm[Hg] NASRIN ISABEL MD [facility] 08-11-2024 11:35-0400 Heart rate 61 /min NASRIN ISABEL MD [facility] 08-11-2024 11:35-0400 Mean blood pressure 108 mm[Hg] NASRIN ISABEL MD [facility] 08-11-2024 11:35-0400 Respiratory rate 16 /min NASRIN ISABEL MD [facility] 08-11-2024 11:35-0400 Systolic Blood Pressure Non-Invasive 127 mm[Hg] NASRIN ISABEL MD [facility] 08-11-2024 11:20-0400 Diastolic Blood Pressure Non-Invasive 99 mm[Hg] NASRIN ISABEL MD [facility] 08-11-2024 11:20-0400 Mean blood pressure 113 mm[Hg] NASRIN ISABEL MD [facility] 08-11-2024 11:20-0400 Respiratory rate 16 /min NASRIN ISABEL MD [facility] 08-11-2024 11:20-0400 Systolic Blood Pressure Non-Invasive 138 mm[Hg] NASRIN ISABEL MD [facility] 08-11-2024 10:50-0400 Body temperature 97.16 [degF] NASRIN ISABEL MD [facility] 08-11-2024 10:40-0400 Respiratory Rate - Anes 0 br/min NASRIN ISABEL MD [facility] 08-11-2024 10:35-0400 Body temperature 96.82 [degF] NASRIN ISABEL MD [facility] 08-11-2024 10:35-0400 Respiratory Rate - Anes 9 br/min NASRIN ISABEL MD [facility] 08-11-2024 10:30-0400 Body temperature 96.73 [degF] NASRIN ISABEL MD [facility] 08-11-2024 10:30-0400 Respiratory Rate - Anes 9 br/min NASRIN ISABEL MD [facility] 08-11-2024 10:25-0400 Body temperature 96.8 [degF] NASRIN ISABEL MD [facility] 08-11-2024 08:31-0400 Body height 163.8 cm NASRIN ISABEL MD [facility] 08-11-2024 08:31-0400 Body weight 59.5 kg NASRIN ISABEL MD [facility] 08-11-2024 08:31-0400 Heart rate 72 /min NASRIN ISABEL MD [facility] 08-06-2024 07:07-0400 Blood Pressure Cuff Size NASRIN ISABEL MD [facility] 08-06-2024 07:07-0400 Blood Pressure Location NASRIN ISABEL MD [facility] 08-06-2024 07:07-0400 Blood Pressure Method NASRIN ISABEL MD [facility] 08-06-2024 07:07-0400 Body height 165 cm NASRIN ISABEL MD [facility] 08-06-2024 07:07-0400 Body temperature 98.06 [degF] NASRIN ISABEL MD [facility] 08-06-2024 07:07-0400 Body weight 59.8 kg NASRIN ISABEL MD [facility] 08-06-2024 07:07-0400 Body weight 21.97 kg/m2 NASRIN ISABEL MD [facility] 08-06-2024 07:07-0400 Diastolic Blood Pressure Non-Invasive 75 mm[Hg] NASRIN ISABEL MD [facility] 08-06-2024 07:07-0400 Heart rate 64 /min NASRIN ISABEL MD [facility] 08-06-2024 07:07-0400 Systolic Blood Pressure Non-Invasive 151 mm[Hg] NASRIN ISABEL MD [facility] 06-09-2024 10:50-0400 Body temperature 96.98 [degF] NASRIN ISABEL MD [facility] 06-09-2024 10:50-0400 Diastolic Blood Pressure Non-Invasive 86 mm[Hg] NASRIN ISABEL MD [facility] 06-09-2024 10:50-0400 Heart rate 58 /min NASRIN ISABEL MD [facility] 06-09-2024 10:50-0400 Respiratory rate 18 /min NASRIN ISABEL MD [facility] 06-09-2024 10:50-0400 Systolic Blood Pressure Non-Invasive 122 mm[Hg] NASRIN ISABEL MD [facility] 06-09-2024 10:40-0400 Body temperature 96.8 [degF] NASRIN ISABEL MD [facility] 06-09-2024 10:40-0400 Diastolic Blood Pressure Non-Invasive 98 mm[Hg] NASRIN ISABEL MD [facility] 06-09-2024 10:40-0400 Heart rate 59 /min NASRIN ISABEL MD [facility] 06-09-2024 10:40-0400 Mean blood pressure 108 mm[Hg] NASRIN ISABEL MD [facility] 06-09-2024 10:40-0400 Respiratory rate 16 /min NASRIN ISABEL MD [facility] 06-09-2024 10:40-0400 Systolic Blood Pressure Non-Invasive 121 mm[Hg] NASRIN ISABEL MD [facility] 06-09-2024 10:25-0400 Diastolic Blood Pressure Non-Invasive 94 mm[Hg] NASRIN ISABEL MD [facility] 06-09-2024 10:25-0400 Heart rate 54 /min NASRIN ISABEL MD [facility] 06-09-2024 10:25-0400 Mean blood pressure 108 mm[Hg] NASRIN ISABEL MD [facility] 06-09-2024 10:25-0400 Respiratory rate 16 /min NASRIN ISABEL MD [address] [place] [address] 06-09-2024 10:25-0400 Systolic Blood Pressure Non-Invasive 142 mm[Hg] NASRIN ISABEL MD [facility] 06-09-2024 10:10-0400 Heart rate 57 /min NASRIN ISABEL MD [facility] 06-09-2024 10:10-0400 Mean blood pressure 111 mm[Hg] NASRIN ISABEL MD [facility] 06-09-2024 09:40-0400 Body temperature 97.16 [degF] NASRIN ISABEL MD [address] [place] [address] 06-09-2024 09:35-0400 Respiratory Rate - Anes 13 br/min NASRIN ISABEL MD [facility] 06-09-2024 09:30-0400 Respiratory Rate - Anes 5 br/min NASRIN ISABEL MD [facility] 06-09-2024 09:25-0400 Respiratory Rate - Anes 6 br/min NASRIN ISABEL MD [facility] 06-09-2024 09:20-0400 Body temperature 96.73 [degF] NASRIN ISABEL MD [facility] 06-09-2024 09:15-0400 Body temperature 96.69 [degF] NASRIN ISABEL MD [facility] 06-09-2024 09:10-0400 Body temperature 96.55 [degF] NASRIN ISABEL MD [facility] 06-09-2024 06:48-0400 Body weight 21.18 kg/m2 NASRIN ISABEL MD [facility] 06-09-2024 06:46-0400 Body height 167.6 cm NASRIN ISABEL MD [facility] 06-09-2024 06:46-0400 Body weight 59.5 kg NASRIN ISABEL MD [facility] 06-09-2024 06:46-0400 Heart rate 70 /min NASRIN ISABEL MD [facility] 04-14-2024 13:47-0400 Body temperature 95.72 [degF] OLE PACE MD [facility] 04-14-2024 13:47-0400 Diastolic Blood Pressure Non-Invasive 88 mm[Hg] OLE PACE MD [facility] 04-14-2024 13:47-0400 Heart rate 54 /min OLE PACE MD [facility] 04-14-2024 13:47-0400 Reason For Taking VItal Signs OLE PACE MD [facility] 04-14-2024 13:47-0400 Respiratory rate 16 /min OLE PACE MD [facility] 04-14-2024 13:47-0400 Systolic Blood Pressure Non-Invasive 123 mm[Hg] OLE PACE MD [facility] 04-14-2024 13:40-0400 Body temperature 96.8 [degF] OLE PACE MD [facility] 04-14-2024 13:40-0400 Diastolic Blood Pressure Non-Invasive 84 mm[Hg] OLE PACE MD [facility] 04-14-2024 13:40-0400 Heart rate 53 /min OLE PACE MD [facility] 04-14-2024 13:40-0400 Mean blood pressure 92 mm[Hg] OLE PACE MD [facility] 04-14-2024 13:40-0400 Respiratory rate 16 /min OLE PACE MD [facility] 04-14-2024 13:40-0400 Systolic Blood Pressure Non-Invasive 113 mm[Hg] OLE PACE MD [facility] 04-14-2024 13:25-0400 Body temperature 97.34 [degF] OLE PACE MD [facility] 04-14-2024 13:25-0400 Diastolic Blood Pressure Non-Invasive 85 mm[Hg] OLE PACE MD [address] [place] [address] 04-14-2024 13:25-0400 Heart rate 47 /min OLE PACE MD [address] [place] [address] 04-14-2024 13:25-0400 Mean blood pressure 95 mm[Hg] OLE PACE MD [address] 04-14-2024 13:25-0400 Respiratory rate 16 /min OLE PACE MD [address] [place] [address] 04-14-2024 13:25-0400 Systolic Blood Pressure Non-Invasive 123 mm[Hg] OLE PACE MD [facility] 04-14-2024 13:15-0400 Heart rate 61 /min OLE PACE MD [address] 04-14-2024 13:15-0400 Respiratory Rate - Anes 11 br/min OLE PACE MD [address] 04-14-2024 13:10-0400 Respiratory Rate - Anes 14 br/min OLE PACE MD [address] [place] [address] 04-14-2024 13:05-0400 Respiratory Rate - Anes 0 br/min OLE PACE MD [facility] 04-14-2024 11:36-0400 Body height 167.6 cm OLE PACE MD [address] [place] [address] 04-14-2024 11:36-0400 Body weight 61.5 kg OLE PACE MD [address] [place] [address] 04-14-2024 11:36-0400 Heart rate 79 /min OLE PACE MD [address] [place] [address] 03-03-2024 15:27-0400 Body temperature 97.52 [degF] OLE PACE MD [address] [place] [address] 03-03-2024 15:27-0400 Diastolic blood pressure 95 mm[Hg] OLE PACE MD [address] [place] [address] 03-03-2024 15:27-0400 Heart rate 58 /min OLE PACE MD [address] [place] [address] 03-03-2024 15:27-0400 Respiratory rate 16 /min OLE PACE MD [address] 03-03-2024 15:27-0400 Systolic blood pressure 140 mm[Hg] OLE PACE MD [address] 03-03-2024 13:53-0400 Body temperature 96.98 [degF] OLE PACE MD [address] 03-03-2024 13:53-0400 Diastolic Blood Pressure Non-Invasive 81 mm[Hg] OLE PACE MD [address] [place] [address] 03-03-2024 13:53-0400 Heart rate 62 /min OLE PACE MD [address] 03-03-2024 13:53-0400 Reason For Taking VItal Signs OLE PACE MD [address] [place] [address] 03-03-2024 13:53-0400 Respiratory rate 16 /min OLE PACE MD [address] [place] [address] 03-03-2024 13:53-0400 Systolic Blood Pressure Non-Invasive 125 mm[Hg] OLE PACE MD [address] [place] [address] 03-03-2024 13:45-0400 Heart rate 69 /min OLE PACE MD [address] 03-03-2024 13:45-0400 Respiratory Rate - Anes 17 br/min OLE PACE MD [address] [place] [address] 03-03-2024 13:44-0400 Diastolic Blood Pressure Non-Invasive 95 mm[Hg] OLE PACE MD [facility] 03-03-2024 13:44-0400 Systolic Blood Pressure Non-Invasive 139 mm[Hg] OLE PACE MD [address] [place] [address] 03-03-2024 13:40-0400 Diastolic Blood Pressure Non-Invasive 93 mm[Hg] OLE PACE MD [address] [place] [address] 03-03-2024 13:40-0400 Heart rate 86 /min OLE PACE MD [address] [place] [address] 03-03-2024 13:40-0400 Respiratory Rate - Anes 14 br/min OLE PACE MD [address] [place] [address] 03-03-2024 13:40-0400 Systolic Blood Pressure Non-Invasive 122 mm[Hg] OLE PACE MD [address] [place] [address] 03-03-2024 13:35-0400 Heart rate 78 /min OLE PACE MD [address] [place] [address] 03-03-2024 13:35-0400 Respiratory Rate - Anes 20 br/min OLE PACE MD [address] [place] [address] 03-03-2024 11:18-0400 Body height 167.6 cm OLE PACE MD [address] [place] [address] 03-03-2024 11:18-0400 Body temperature 98.96 [degF] OLE PACE MD [address] [place] [address] 03-03-2024 11:18-0400 Body weight 59.5 kg OLE PACE MD [address] [place] [address] 03-03-2024 11:18-0400 Heart rate 64 /min OLE PACE MD [address] [place] [address] 03-03-2024 11:18-0400 Respiratory rate 16 /min OLE PACE MD [address] [place] [address] 01-21-2024 15:05-0400 Body temperature 97.34 [degF] OLE PACE MD [facility] 01-21-2024 15:05-0400 Diastolic blood pressure 81 mm[Hg] OLE PACE MD [facility] 01-21-2024 15:05-0400 Heart rate 84 /min OLE PACE MD [facility] 01-21-2024 15:05-0400 Respiratory rate 16 /min OLE PACE MD [facility] 01-21-2024 15:05-0400 Systolic blood pressure 118 mm[Hg] OLE PACE MD [facility] 01-21-2024 13:53-0400 Body temperature 97.7 [degF] OLE PACE MD [facility] 01-21-2024 13:53-0400 Diastolic Blood Pressure Non-Invasive 85 mm[Hg] OLE PACE MD [facility] 01-21-2024 13:53-0400 Heart rate 71 /min OLE PACE MD [facility] 01-21-2024 13:53-0400 Respiratory rate 16 /min OLE PACE MD [facility] 01-21-2024 13:53-0400 Systolic Blood Pressure Non-Invasive 122 mm[Hg] OLE PACE MD [facility] 01-21-2024 13:38-0400 Diastolic Blood Pressure Non-Invasive 89 mm[Hg] OLE PACE MD [facility] 01-21-2024 13:38-0400 Systolic Blood Pressure Non-Invasive 122 mm[Hg] OLE PACE MD [facility] 01-21-2024 13:35-0400 Diastolic Blood Pressure Non-Invasive 80 mm[Hg] OLE PACE MD [facility] 01-21-2024 13:35-0400 Heart rate 89 /min OLE PACE MD [facility] 01-21-2024 13:35-0400 Respiratory Rate - Anes 13 br/min OLE PACE MD [facility] 01-21-2024 13:35-0400 Systolic Blood Pressure Non-Invasive 104 mm[Hg] OLE PACE MD [facility] 01-21-2024 13:30-0400 Heart rate 82 /min OLE PACE MD [facility] 01-21-2024 13:30-0400 Respiratory Rate - Anes 11 br/min OLE PACE MD [facility] 01-21-2024 13:25-0400 Heart rate 82 /min OLE PACE MD [facility] 01-21-2024 13:25-0400 Respiratory Rate - Anes 12 br/min OLE PACE MD [facility] 01-21-2024 11:50-0400 Body height 167.6 cm OLE PACE MD [facility] 01-21-2024 11:50-0400 Body temperature 98.42 [degF] OLE PACE MD [facility] 01-21-2024 11:50-0400 Body weight 58.2 kg OLE PACE MD [facility] 01-21-2024 11:50-0400 Heart rate 87 /min OLE PACE MD [facility] 01-21-2024 11:50-0400 Respiratory rate 16 /min OLE PACE MD [facility] 12-03-2023 13:39-0500 Body temperature 96.8 [degF] BRITTNI LU [employer]AGE [employer] SALARY ADMINISTRATOR-TECHNICAL PROGRAM MANAGER [facility] 12-03-2023 13:39-0500 Diastolic blood pressure 95 mm[Hg] BRITTNI LU [employer] SALARY ADMINISTRATOR-TECHNICAL PROGRAM MANAGER [facility] 12-03-2023 13:39-0500 Heart rate 51 /min BRITTNI PRATHERZ [employer]AGE [employer] SALARY ADMINISTRATOR-TECHNICAL PROGRAM MANAGER [facility] 12-03-2023 13:39-0500 Respiratory rate 16 /min BRITTNI POPEDEZ [employer]AGE [employer] SALARY ADMINISTRATOR-TECHNICAL PROGRAM MANAGER [facility] 12-03-2023 13:39-0500 Systolic blood pressure 141 mm[Hg] BRITTNI POPEDEZ [employer]AGE [employer] SALARY ADMINISTRATOR-TECHNICAL PROGRAM MANAGER [facility] 12-03-2023 12:10-0500 Body temperature 97.34 [degF] BRITTNI POPEDEZ WAGE AND SALARY ADMINISTRATOR-TECHNICAL PROGRAM MANAGER [facility] 12-03-2023 12:10-0500 Diastolic Blood Pressure Non-Invasive 88 mm[Hg] BRITTNI POPEDEZ [employer]AGE AND SALARY ADMINISTRATOR-TECHNICAL PROGRAM MANAGER [facility] 12-03-2023 12:10-0500 Heart rate 69 /min BRITTNI POPEDEZ [employer]AGE AND SALARY ADMINISTRATOR-TECHNICAL PROGRAM MANAGER [facility] 12-03-2023 12:10-0500 Respiratory rate 16 /min BRITTNI POPEDEZ [employer]AGE AND SALARY ADMINISTRATOR-TECHNICAL PROGRAM MANAGER [facility] 12-03-2023 12:10-0500 Systolic Blood Pressure Non-Invasive 134 mm[Hg] BRITTNI POPEDEZ [employer]AGE AND SALARY ADMINISTRATOR-TECHNICAL PROGRAM MANAGER [facility] 12-03-2023 11:50-0500 Respiratory Rate - Anes 11 br/min BRITTNI POPEDEZ [employer]AGE AND SALARY ADMINISTRATOR-TECHNICAL PROGRAM MANAGER [facility] 12-03-2023 11:48-0500 Diastolic Blood Pressure Non-Invasive 83 mm[Hg] BRITTNI LU [employer] SALARY ADMINISTRATOR-TECHNICAL PROGRAM MANAGER [facility] 12-03-2023 11:48-0500 Systolic Blood Pressure Non-Invasive 120 mm[Hg] BRITTNI LU [employer] SALARY ADMINISTRATOR-TECHNICAL PROGRAM MANAGER [facility] 12-03-2023 11:45-0500 Body temperature 96.8 [degF] BRITTNI LU [employer] SALARY ADMINISTRATOR-TECHNICAL PROGRAM MANAGER [facility] 12-03-2023 11:45-0500 Diastolic Blood Pressure Non-Invasive 80 mm[Hg] BRITTNI LU [employer] SAL[employer] ADMINISTRATOR-TECHNICAL PROGRAM MANAGER [facility] 12-03-2023 11:45-0500 Heart rate 71 /min BRITTNI LU [employer] SAL[employer] ADMINISTRATOR-TECHNICAL PROGRAM MANAGER [facility] 12-03-2023 11:45-0500 Respiratory Rate - Anes 17 br/min BRITTNI LU [employer] ADMINISTRATOR-TECHNICAL PROGRAM MANAGER [facility] 12-03-2023 11:45-0500 Systolic Blood Pressure Non-Invasive 117 mm[Hg] BRITTNI LU [employer] SALARY ADMINISTRATOR-TECHNICAL PROGRAM MANAGER [facility] 12-03-2023 11:40-0500 Body temperature 96.8 [degF] BRITTNI LU [employer] SALARY ADMINISTRATOR-TECHNICAL PROGRAM MANAGER [facility] 12-03-2023 11:40-0500 Heart rate 76 /min BRITTNI LU [employer] SAL[employer] ADMINISTRATOR-TECHNICAL PROGRAM MANAGER [facility] 12-03-2023 11:40-0500 Respiratory Rate - Anes 20 br/min BRITTNI LU [employer] SAL[employer] ADMINISTRATOR-TECHNICAL PROGRAM MANAGER [facility] 12-03-2023 11:35-0500 Body temperature 96.8 [degF] BRITTNI LU [employer] SALARY ADMINISTRATOR-TECHNICAL PROGRAM MANAGER [facility] 12-03-2023 11:35-0500 Heart rate 76 /min BRITTNI LU [employer] SAL[employer] ADMINISTRATOR-TECHNICAL PROGRAM MANAGER [facility] 12-03-2023 09:41-0500 Body height 167.6 cm BRITTNI LU [employer] SAL[employer] ADMINISTRATOR-TECHNICAL PROGRAM MANAGER [facility] 12-03-2023 09:41-0500 Body temperature 97.52 [degF] BRITTNI POPEDEZ WAGE AND SALARY ADMINISTRATOR-TECHNICAL PROGRAM MANAGER [facility] 12-03-2023 09:41-0500 Body weight 58.6 kg BRITTNI LU [employer] SALARY ADMINISTRATOR-TECHNICAL PROGRAM MANAGER [facility] 12-03-2023 09:41-0500 Heart rate 78 /min BRITTNI LU [employer] SAL[employer] ADMINISTRATOR-TECHNICAL PROGRAM MANAGER [facility] 12-03-2023 09:41-0500 Respiratory rate 18 /min BRITTNI LU [employer] ADMINISTRATOR-TECHNICAL PROGRAM MANAGER [facility] 10-22-2023 16:30-0500 Body temperature 96.98 [degF] BRITTNI LU [employer] SALARY ADMINISTRATOR-TECHNICAL PROGRAM MANAGER [facility] 10-22-2023 16:30-0500 Diastolic Blood Pressure Non-Invasive 81 mm[Hg] BRITTNI POPEDEZ W[employer] AND SALARY ADMINISTRATOR-TECHNICAL PROGRAM MANAGER [facility] 10-22-2023 16:30-0500 Heart rate 72 /min BRITTNI POPEDEZ W[employer] AND SALARY ADMINISTRATOR-TECHNICAL PROGRAM MANAGER [facility] 10-22-2023 16:30-0500 Respiratory rate 16 /min BRITTNI LU [employer] SAL[employer] ADMINISTRATOR-TECHNICAL PROGRAM MANAGER [facility] 10-22-2023 16:30-0500 Systolic Blood Pressure Non-Invasive 115 mm[Hg] BRITTNI LU [employer] SALARY ADMINISTRATOR-TECHNICAL PROGRAM MANAGER [facility] 10-22-2023 16:15-0500 Body temperature 97.34 [degF] BRITTNI LU [employer] SALARY ADMINISTRATOR-TECHNICAL PROGRAM MANAGER [facility] 10-22-2023 16:15-0500 Diastolic Blood Pressure Non-Invasive 76 mm[Hg] BRITTNI LU [employer] SAL[employer] ADMINISTRATOR-TECHNICAL PROGRAM MANAGER [facility] 10-22-2023 16:15-0500 Respiratory rate 16 /min BRITTNI LU [employer] SAL[employer] ADMINISTRATOR-TECHNICAL PROGRAM MANAGER [facility] 10-22-2023 16:15-0500 Systolic Blood Pressure Non-Invasive 107 mm[Hg] BRITTNI LU [employer] SAL[employer] ADMINISTRATOR-TECHNICAL PROGRAM MANAGER [facility] 10-22-2023 16:10-0500 Diastolic Blood Pressure Non-Invasive 76 mm[Hg] BRITTNI LU [employer] SAL[employer] ADMINISTRATOR-TECHNICAL PROGRAM MANAGER [facility] 10-22-2023 16:10-0500 Heart rate 52 /min BRITTNI LU [employer] SAL[employer] ADMINISTRATOR-TECHNICAL PROGRAM MANAGER [facility] 10-22-2023 16:10-0500 Mean blood pressure 87 mm[Hg] BRITTNI LU [employer] SALARY ADMINISTRATOR-TECHNICAL PROGRAM MANAGER [facility] 10-22-2023 16:10-0500 Systolic Blood Pressure Non-Invasive 107 mm[Hg] BRITTNI LU [employer] SALARY ADMINISTRATOR-TECHNICAL PROGRAM MANAGER [facility] 10-22-2023 15:51-0500 Heart rate 49 /min BRITTNI LU [employer] ADMINISTRATOR-TECHNICAL PROGRAM MANAGER [facility] 10-22-2023 15:51-0500 Respiratory rate 16 /min BRITTNI LU [employer] ADMINISTRATOR-TECHNICAL PROGRAM MANAGER [facility] 10-22-2023 15:35-0500 Heart rate 50 /min BRITTNI LU [employer] ADMINISTRATOR-TECHNICAL PROGRAM MANAGER [facility] 10-22-2023 15:18-0500 Mean blood pressure 111 mm[Hg] BRITTNI LU [employer] SALARY ADMINISTRATOR-TECHNICAL PROGRAM MANAGER [facility] 10-22-2023 15:05-0500 Body temperature 97.34 [degF] BRITTNI LU [employer] AND SALARY ADMINISTRATOR-TECHNICAL PROGRAM MANAGER [facility] 10-22-2023 10:16-0500 Body height 167.6 cm BRITTNI LU [employer] SAL[employer] ADMINISTRATOR-TECHNICAL PROGRAM MANAGER [facility] 10-22-2023 10:16-0500 Body weight 61.4 kg BRITTNI LU [employer] SAL[employer] ADMINISTRATOR-TECHNICAL PROGRAM MANAGER [facility] 10-22-2023 10:16-0500 Heart rate 76 /min BRITTNI LU [employer] SAL[employer] ADMINISTRATOR-TECHNICAL PROGRAM MANAGER [facility] 07-24-2023 16:14-0400 Body temperature 97.16 [degF] FLIP MARTIN MD [facility] 07-24-2023 16:14-0400 Diastolic Blood Pressure Non-Invasive 82 1 FLIP MARTIN MD [facility] 07-24-2023 16:14-0400 Heart rate 65 /min FILP MARTIN MD [facility] 07-24-2023 16:14-0400 Respiratory rate 16 /min FLIP MARTIN MD [facility] 07-24-2023 16:14-0400 Systolic Blood Pressure Non-Invasive 109 1 FLIP MARTIN MD [facility] 07-24-2023 16:00-0400 Body temperature 97.52 [degF] FLIP MARTIN MD [facility] 07-24-2023 16:00-0400 Heart rate 81 /min FLIP MARTIN MD [facility] 07-24-2023 16:00-0400 systolic 108 mm[Hg] FLIP MARTIN MD [facility] 07-24-2023 15:45-0400 Diastolic Blood Pressure Non-Invasive 74 1 FLIP MARTIN MD [facility] 07-24-2023 15:45-0400 Heart rate 85 /min FLIP MARTIN MD [facility] 07-24-2023 15:45-0400 Mean blood pressure 84 mm[Hg] FLIP MARTIN MD [facility] 07-24-2023 15:45-0400 Respiratory rate 16 /min FLIP MARTIN MD [facility] 07-24-2023 15:45-0400 Systolic Blood Pressure Non-Invasive 106 1 FLIP MARTIN MD [facility] 07-24-2023 15:30-0400 diastolic 87 mm[Hg] FLIP MARTIN MD [facility] 07-24-2023 15:30-0400 Heart rate 78 /min FLIP MARTIN MD [facility] 07-24-2023 15:00-0400 Mean blood pressure 92 mm[Hg] FLIP MARTIN MD [facility] 07-24-2023 14:34-0400 Mean blood pressure 114 mm[Hg] FLIP MARTIN MD [facility] 07-24-2023 14:00-0400 Body temperature 97.34 [degF] FLIP MARTIN MD [facility] 07-24-2023 13:55-0400 Respiratory Rate - Anes 17 br/min FLIP MARTIN MD [facility] 07-24-2023 13:50-0400 Body temperature 93.88 [degF] FLIP MARTIN MD [facility] 07-24-2023 13:50-0400 Respiratory Rate - Anes 14 br/min FLIP MARTIN MD [facility] 07-24-2023 13:45-0400 Body temperature 93.9 [degF] FLIP MARTIN MD [facility] 07-24-2023 13:45-0400 Respiratory Rate - Anes 16 br/min FLIP MARTIN MD [facility] 07-24-2023 13:40-0400 Body temperature 93.87 [degF] FLIP MARTIN MD [facility] 07-24-2023 10:08-0400 Body height 167.6 cm FLIP MARTIN MD [facility] 07-24-2023 10:08-0400 Body weight 67.8 kg FLIP MARTNI MD [facility] 07-24-2023 10:08-0400 Heart rate 100 /min FLIP MARTIN MD [facility] 07-16-2023 09:45-0400 Body temperature 97.88 [degF] FLIP MARTIN MD [facility] 07-16-2023 09:45-0400 Diastolic Blood Pressure Non-Invasive 81 1 FLIP MARTIN MD [facility] 07-16-2023 09:45-0400 Heart rate 103 /min FLIP MARTIN MD [facility] 07-16-2023 09:45-0400 Reason For Taking VItal Signs FLIP MARTIN MD [facility] 07-16-2023 09:45-0400 Respiratory rate 16 /min FLIP MARTIN MD [facility] 07-16-2023 09:45-0400 Systolic Blood Pressure Non-Invasive 107 1 FLIP MARTIN MD [facility] 07-16-2023 06:25-0400 Body temperature 98.42 [degF] FLIP MARTIN MD [facility] 07-16-2023 06:25-0400 Diastolic Blood Pressure Non-Invasive 77 1 FLIP MARTIN MD [facility] 07-16-2023 06:25-0400 Heart rate 106 /min FLIP MARTIN MD [facility] 07-16-2023 06:25-0400 Reason For Taking VItal Signs FLIP MARTIN MD [facility] 07-16-2023 06:25-0400 Respiratory rate 16 /min FLIP MARTIN MD [facility] 07-16-2023 06:25-0400 Systolic Blood Pressure Non-Invasive 110 1 FLIP MARTIN MD [facility] 07-16-2023 02:07-0400 Body temperature 98.6 [degF] FLIP MARTIN MD [facility] 07-16-2023 02:07-0400 Diastolic Blood Pressure Non-Invasive 81 1 FLIP MARTIN MD [facility] 07-16-2023 02:07-0400 Heart rate 97 /min FLIP MARTIN MD [facility] 07-16-2023 02:07-0400 Systolic Blood Pressure Non-Invasive 108 1 FLIP MARTIN MD [facility] 07-15-2023 21:54-0400 Respiratory rate 18 /min FLIP MARTIN MD [facility] 07-15-2023 15:00-0400 Reason For Taking VItal Signs FLIP MARTIN MD [facility] 07-15-2023 14:00-0400 Blood Pressure Cuff Size FLIP MARTIN MD [facility] 07-15-2023 14:00-0400 Blood Pressure Location FLIP MARTIN MD [facility] 07-15-2023 14:00-0400 Blood Pressure Method FLIP MARTIN MD [facility] 07-14-2023 22:31-0400 Blood Pressure Cuff Size FLIP MARTIN MD [facility] 07-14-2023 22:31-0400 Blood Pressure Location FLIP MARTIN MD [facility] 07-14-2023 22:31-0400 Blood Pressure Method FLIP MARTIN MD [facility] 07-14-2023 14:39-0400 Blood Pressure Cuff Size FLIP MARTIN MD [facility] 07-14-2023 14:39-0400 Blood Pressure Location FLIP MARTIN MD [facility] 07-14-2023 14:39-0400 Blood Pressure Method FLIP MARTIN MD [facility] 07-09-2023 19:11-0400 Heart rate 88 /min FLIP MARTIN MD [facility] 07-09-2023 14:26-0400 Heart rate 68 /min FLIP MARTIN MD [facility] 07-09-2023 13:50-0400 Heart rate 88 /min FLIP MARTIN MD [facility] 07-09-2023 07:02-0400 Body height 167.6 cm FLIP MARTIN MD [facility] 07-09-2023 07:02-0400 Body weight 62.8 kg FLIP MARTIN MD [facility] 07-09-2023 07:02-0400 Body weight 22.36 kg/m2 FLIP MARTIN MD [facility] 07-08-2023 20:24-0400 Body weight 62.8 kg FLIP MARTIN MD [facility] 05-07-2023 14:50-0400 Body temperature 97.88 [degF] FLIP MARTIN MD [facility] 05-07-2023 14:50-0400 Diastolic Blood Pressure Non-Invasive 87 1 FLIP MARTIN MD [facility] 05-07-2023 14:50-0400 Heart rate 90 /min FLIP MARTIN MD [facility] 05-07-2023 14:50-0400 Respiratory rate 16 /min FLIP MARTIN MD [facility] 05-07-2023 14:50-0400 Systolic Blood Pressure Non-Invasive 119 1 FLIP MARTIN MD [facility] 05-07-2023 09:41-0400 Body temperature 98.42 [degF] FLIP MARTIN MD [facility] 05-07-2023 09:41-0400 Diastolic Blood Pressure Non-Invasive 90 1 FLIP MARTIN MD [facility] 05-07-2023 09:41-0400 Heart rate 83 /min FLIP MARTIN MD [facility] 05-07-2023 09:41-0400 Respiratory rate 16 /min FLIP MARTIN MD [facility] 05-07-2023 09:41-0400 Systolic Blood Pressure Non-Invasive 148 1 FLIP MARTIN MD [facility] 05-07-2023 06:22-0400 Body temperature 98.24 [degF] FLIP MARTIN MD [facility] 05-07-2023 06:22-0400 Diastolic Blood Pressure Non-Invasive 74 1 FLIP MARTIN MD [facility] 05-07-2023 06:22-0400 Heart rate 81 /min FLIP MARTIN MD [facility] 05-07-2023 06:22-0400 Respiratory rate 16 /min FLIP MARTIN MD [facility] 05-07-2023 06:22-0400 Systolic Blood Pressure Non-Invasive 109 1 FLIP MARTIN MD [facility] 05-04-2023 15:52-0400 Blood Pressure Cuff Size FLIP MARTIN MD [facility] 05-04-2023 15:52-0400 Blood Pressure Location FLIP MARTIN MD [facility] 05-04-2023 15:52-0400 Blood Pressure Method FLIP MARTIN MD [facility] 05-04-2023 03:44-0400 Reason For Taking VItal Signs FLIP MARTIN MD [facility] 05-03-2023 23:02-0400 Reason For Taking VItal Signs FLIP MARTIN MD [facility] 05-03-2023 18:07-0400 Reason For Taking VItal Signs FLIP MARTIN MD [facility] 04-30-2023 18:27-0400 Blood Pressure Cuff Size FLIP MARTIN MD [facility] 04-30-2023 18:27-0400 Blood Pressure Location FLIP MARTIN MD [facility] 04-30-2023 18:27-0400 Blood Pressure Method FLIP MARTIN MD [facility] 04-30-2023 18:27-0400 Heart rate 79 /min FLIP MARTIN MD [facility] 04-30-2023 14:28-0400 Blood Pressure Cuff Size FLIP MARTIN MD [facility] 04-30-2023 14:28-0400 Heart rate 83 /min FLIP MARTIN MD [facility] 04-30-2023 10:52-0400 Heart rate 90 /min FLIP MARTIN MD [facility] 04-29-2023 11:30-0400 Respiratory Rate - Anes 18 br/min FLIP MARTIN MD [facility] 04-29-2023 10:40-0400 Heart rate 72 /min FLIP MARTIN MD [facility] 04-29-2023 10:25-0400 Heart rate 73 /min FLIP MARTIN MD [facility] 04-29-2023 10:20-0400 Heart rate 74 /min FLIP MARTIN MD [facility] 04-28-2023 13:10-0400 Body height 167 cm FLIP MARTIN MD [address] 04-28-2023 13:10-0400 Body weight 63.9 kg FLIP MARTIN MD [facility] 04-28-2023 13:10-0400 Body weight 22.91 kg/m2 FLIP MARTIN MD [facility] 04-28-2023 01:00-0400 Mean blood pressure 106 mm[Hg] FLIP MARTIN MD [facility] 04-28-2023 00:45-0400 Mean blood pressure 113 mm[Hg] FLIP MARTIN MD [facility] 04-28-2023 00:30-0400 Mean blood pressure 110 mm[Hg] FLIP MARTIN MD [facility] 04-27-2023 16:11-0400 Body weight 63.9 kg FLIP MARTIN MD [facility] 03-05-2023 16:12-0400 Body temperature 98.6 [degF] FLIP MARTIN MD [facility] 03-05-2023 16:12-0400 Diastolic Blood Pressure Non-Invasive 80 1 FLIP MARTIN MD [facility] 03-05-2023 16:12-0400 Heart rate 87 /min FLIP MARTIN MD [facility] 03-05-2023 16:12-0400 Respiratory rate 16 /min FLIP MARTIN MD [facility] 03-05-2023 16:12-0400 Systolic Blood Pressure Non-Invasive 108 1 FLIP MARTIN MD [facility] 03-05-2023 07:05-0400 Body temperature 97.88 [degF] FLIP MARTIN MD [facility] 03-05-2023 07:05-0400 Diastolic Blood Pressure Non-Invasive 68 1 FLIP MARTIN MD [facility] 03-05-2023 07:05-0400 Heart rate 96 /min FLIP MARTIN MD [facility] 03-05-2023 07:05-0400 Respiratory rate 16 /min FLIP MARTIN MD [facility] 03-05-2023 07:05-0400 Systolic Blood Pressure Non-Invasive 99 1 FLIP MARTIN MD [facility] 03-04-2023 21:26-0400 Body temperature 98.42 [degF] FLIP MARTIN MD [facility] 03-04-2023 21:26-0400 Diastolic Blood Pressure Non-Invasive 88 1 FLIP MARTIN MD [facility] 03-04-2023 21:26-0400 Heart rate 93 /min FLIP MARTIN MD [facility] 03-04-2023 21:26-0400 Reason For Taking VItal Signs FLIP MARTIN MD [facility] 03-04-2023 21:26-0400 Respiratory rate 18 /min FLIP MARTIN MD [facility] 03-04-2023 21:26-0400 Systolic Blood Pressure Non-Invasive 122 1 FLIP MARTIN MD [facility] 03-03-2023 21:35-0400 Reason For Taking VItal Signs FLIP MARTIN MD [facility] 03-01-2023 20:41-0400 Reason For Taking VItal Signs FLIP MARTIN MD [facility] 03-01-2023 08:57-0400 Heart rate 68 /min FLIP MARTIN MD [facility] 03-01-2023 04:50-0400 Blood Pressure Location FLIP MARTIN MD [facility] 03-01-2023 04:50-0400 Blood Pressure Method FLIP MARTIN MD [facility] 02-23-2023 21:09-0400 Body height 167.6 cm FLIP MARTIN MD [facility] 02-23-2023 21:09-0400 Body weight 55.7 kg FLIP MARTIN MD [facility] 02-23-2023 21:09-0400 Body weight 19.83 kg/m2 FLIP MARTIN MD [facility] 02-23-2023 11:58-0400 Body temperature 97.7 [degF] FLIP MARTIN MD [facility] 02-23-2023 11:58-0400 Body weight 55.7 kg FLIP MARTIN MD [facility] 02-17-2023 11:08-0400 Diastolic Blood Pressure Non-Invasive 77 1 BRITTNI LU [employer] ADMINISTRATOR-TE[employer]ICAL PROGRAM MANAGER [facility] 02-17-2023 11:08-0400 Heart rate 85 /min BRITTNI LU [employer] ADMINISTRATOR-TECHNICAL PROGRAM MANAGER [facility] 02-17-2023 11:08-0400 Respiratory rate 16 /min BRITTNI LU [employer] ADMINISTRATOR-TECHNICAL PROGRAM MANAGER [facility] 02-17-2023 11:08-0400 Systolic Blood Pressure Non-Invasive 119 1 BRITTNI LU [employer] ADMINISTRATOR-TECHNICAL PROGRAM MANAGER [facility] 02-17-2023 10:50-0400 Diastolic Blood Pressure Non-Invasive 83 1 BRITTNI LU [employer] ADMINISTRATOR-TECHNICAL PROGRAM MANAGER [facility] 02-17-2023 10:50-0400 Heart rate 78 /min BRITTNI LU [employer] ADMINISTRATOR-TECHNICAL PROGRAM MANAGER [facility] 02-17-2023 10:50-0400 Respiratory rate 16 /min BRITTNI LU [employer] ADMINISTRATOR-TECHNICAL PROGRAM MANAGER [facility] 02-17-2023 10:50-0400 Systolic Blood Pressure Non-Invasive 137 1 BRITTNI POPEDEZ [employer] ADMINISTRATOR-TECHNICAL PROGRAM MANAGER [facility] 02-17-2023 10:35-0400 Diastolic Blood Pressure Non-Invasive 87 1 BRITTNI POPEDEZ [employer] SAL[employer] ADMINISTRATOR-TECHNICAL PROGRAM MANAGER [facility] 02-17-2023 10:35-0400 Heart rate 84 /min BRITTNI LU [employer] ADMINISTRATOR-TECHNICAL PROGRAM MANAGER [facility] 02-17-2023 10:35-0400 Respiratory rate 16 /min BRITTNI POPEDEZ [employer] SALARY ADMINISTRATOR-TECHNICAL PROGRAM MANAGER [facility] 02-17-2023 10:35-0400 Systolic Blood Pressure Non-Invasive 128 1 BRITTNI POPEDEZ [employer] ADMINISTRATOR-TECHNICAL PROGRAM MANAGER [facility] 02-17-2023 09:02-0400 Blood Pressure Cuff Size BRITTNI LU [employer] ADMINISTRATOR-TECHNICAL PROGRAM MANAGER [facility] 02-17-2023 09:02-0400 Blood Pressure Location BRITTNI POPEDEZ [employer] ADMINISTRATOR-TECHNICAL PROGRAM MANAGER [facility] 02-17-2023 09:02-0400 Blood Pressure Method BRITTNI LU [employer] ADMINISTRATOR-TECHNICAL PROGRAM MANAGER [facility] 02-17-2023 09:02-0400 Body height 167.6 cm BRITTNI LU [employer] [facility] 02-17-2023 09:02-0400 Body temperature 97.88 [degF] BRITTNI LU [employer] [facility] 02-17-2023 09:02-0400 Body weight 50 kg BRITTNI LU [employer] [facility] 02-17-2023 09:02-0400 Body weight 17.8 kg/m2 BRITTNI LU [employer] [facility] 02-17-2023 09:02-0400 Heart rate 94 /min BRITTNI LU [employer] [facility] 01-06-2023 12:50-0500 Body temperature 98.06 [degF] FLIP MARTIN MD [facility] 01-06-2023 12:50-0500 Diastolic Blood Pressure Non-Invasive 92 1 FLIP MARTIN MD [facility] 01-06-2023 12:50-0500 Heart rate 73 /min FLIP MARTIN MD [facility] 01-06-2023 12:50-0500 Reason For Taking VItal Signs FLIP MARTIN MD [facility] 01-06-2023 12:50-0500 Respiratory rate 16 /min FLIP MARTIN MD [facility] 01-06-2023 12:50-0500 Systolic Blood Pressure Non-Invasive 137 1 FLIP MARTIN MD [facility] 01-06-2023 07:55-0500 Body temperature 98.06 [degF] FLIP MARTIN MD [facility] 01-06-2023 07:55-0500 Diastolic Blood Pressure Non-Invasive 87 1 FLIP MARTIN MD [facility] 01-06-2023 07:55-0500 Heart rate 64 /min FLIP MARTIN MD [facility] 01-06-2023 07:55-0500 Reason For Taking VItal Signs FLIP MARTIN MD [facility] 01-06-2023 07:55-0500 Respiratory rate 16 /min FLIP MARTIN MD [facility] 01-06-2023 07:55-0500 Systolic Blood Pressure Non-Invasive 121 1 FLIP MARTIN MD [facility] 01-06-2023 07:53-0500 Reason For Taking VItal Signs FLIP MARTIN MD [facility] 01-06-2023 04:04-0500 Body temperature 97.88 [degF] FLIP MARTIN MD [facility] 01-06-2023 04:04-0500 Diastolic Blood Pressure Non-Invasive 73 1 FLIP MARTIN MD [facility] 01-06-2023 04:04-0500 Heart rate 68 /min FLIP MARTIN MD [facility] 01-06-2023 04:04-0500 Respiratory rate 16 /min FLIP MARTIN MD [facility] 01-06-2023 04:04-0500 Systolic Blood Pressure Non-Invasive 109 1 FLIP MARTIN MD [facility] 01-05-2023 23:23-0500 Heart rate 80 /min FLIP MARTIN MD [facility] 01-05-2023 04:12-0500 Blood Pressure Cuff Size FLIP MARTIN MD [facility] 01-05-2023 04:12-0500 Blood Pressure Location FLIP MARTIN MD [facility] 01-05-2023 04:12-0500 Blood Pressure Method FLIP MARTIN MD [facility] 01-05-2023 00:07-0500 Blood Pressure Cuff Size FLIP MARTIN MD [facility] 01-05-2023 00:07-0500 Blood Pressure Location FLIP MARTIN MD [facility] 01-05-2023 00:07-0500 Blood Pressure Method FLIP MARTIN MD [facility] 01-04-2023 20:20-0500 Blood Pressure Method FLIP MARTIN MD [facility] 01-02-2023 15:45-0500 Heart rate 97 /min FLIP MARTIN MD [facility] 01-02-2023 15:40-0500 Heart rate 100 /min FLIP MARTIN MD [facility] 01-02-2023 15:35-0500 Heart rate 90 /min FLIP MARTIN MD [facility] 01-01-2023 16:31-0500 Body height 167.6 cm FLIP AMRTIN MD [facility] 01-01-2023 16:31-0500 Body weight 47.7 kg FLIP MARTIN MD [facility] 01-01-2023 16:31-0500 Body weight 16.98 kg/m2 FLIP MARTIN MD [facility] 01-01-2023 16:08-0500 Body temperature 97.88 [degF] FLIP MARTIN MD [facility] 01-01-2023 16:08-0500 Diastolic Blood Pressure Non-Invasive 91 1 FLIP MARTIN MD [facility] 01-01-2023 16:08-0500 Heart rate 72 /min FLIP MARTIN MD [facility] 01-01-2023 16:08-0500 Respiratory rate 16 /min FLIP MARTIN MD [facility] 01-01-2023 16:08-0500 Systolic Blood Pressure Non-Invasive 129 1 FLIP MARTIN MD [facility] 01-01-2023 15:22-0500 Diastolic Blood Pressure Non-Invasive 89 1 FLIP MARTIN MD [facility] 01-01-2023 15:22-0500 Heart rate 50 /min FLIP MARTIN MD [facility] 01-01-2023 15:22-0500 Respiratory rate 16 /min FLIP MARTIN MD [facility] 01-01-2023 15:22-0500 Systolic Blood Pressure Non-Invasive 121 1 FLIP MARTIN MD [facility] 01-01-2023 13:37-0500 Body height 167.6 cm FLIP MARTIN MD [facility] 01-01-2023 13:37-0500 Respiratory rate 18 /min FLIP MARTIN MD [facility] 01-01-2023 13:31-0500 Body temperature 97.88 [degF] FLIP MARTIN MD [facility] 01-01-2023 13:31-0500 Diastolic Blood Pressure Non-Invasive 106 1 FLIP MARTIN MD [facility] 01-01-2023 13:31-0500 Heart rate 62 /min FLIP MARTIN MD [facility] 01-01-2023 13:31-0500 Systolic Blood Pressure Non-Invasive 137 1 FLIP MARTIN MD [facility] 11-15-2022 13:45-0500 Diastolic Blood Pressure Non-Invasive 60 1 BRITTNI LU [employer] ADMINISTRATOR-TECHNICAL PROGRAM MANAGER [facility] 11-15-2022 13:45-0500 Heart rate 63 /min BRITTNI LU [employer] ADMINISTRATOR-TECHNICAL PROGRAM MANAGER [facility] 11-15-2022 13:45-0500 Respiratory rate 16 /min BRITTNI LU [employer] ADMINISTRATOR-TECHNICAL PROGRAM MANAGER [facility] 11-15-2022 13:45-0500 Systolic Blood Pressure Non-Invasive 125 1 BRITTNI LU [employer] ADMINISTRATOR-TECHNICAL PROGRAM MANAGER [facility] 11-15-2022 13:30-0500 Diastolic Blood Pressure Non-Invasive 95 1 BRITTNI LU [employer] ADMINISTRATOR-TECHNICAL PROGRAM MANAGER [facility] 11-15-2022 13:30-0500 Heart rate 60 /min BRITTNI LU [employer] ADMINISTRATOR-TECHNICAL PROGRAM MANAGER [facility] 11-15-2022 13:30-0500 Respiratory rate 14 /min BRITTNI LU [employer] ADMINISTRATOR-TECHNICAL PROGRAM MANAGER [facility] 11-15-2022 13:30-0500 Systolic Blood Pressure Non-Invasive 132 1 BRITTNI LU [employer] ADMINISTRATOR-TECHNICAL PROGRAM MANAGER [facility] 11-15-2022 13:17-0500 Diastolic Blood Pressure Non-Invasive 84 1 BRITTNI LU [employer] ADMINISTRATOR-TECHNICAL PROGRAM MANAGER [facility] 11-15-2022 13:17-0500 Heart rate 67 /min BRITTNI LU [employer] ADMINISTRATOR-TECHNICAL PROGRAM MANAGER [facility] 11-15-2022 13:17-0500 Respiratory rate 14 /min BRITTNI LU [employer] ADMINISTRATOR-TECHNICAL PROGRAM MANAGER [facility] 11-15-2022 13:17-0500 Systolic Blood Pressure Non-Invasive 136 1 BRITTNI LU [employer] ADMINISTRATOR-TECHNICAL PROGRAM MANAGER [facility] 11-15-2022 12:35-0500 Heart rate 66 /min BRITTNI LU [employer] ADMINISTRATOR-TECHNICAL PROGRAM MANAGER [facility] 11-15-2022 12:25-0500 Heart rate 67 /min BRITTNI LU [employer] ADMINISTRATOR-TECHNICAL PROGRAM MANAGER [facility] 11-15-2022 12:20-0500 Heart rate 72 /min BRITTNI LU [employer] ADMINISTRATOR-TECHNICAL PROGRAM MANAGER [facility] 11-15-2022 09:52-0500 Blood Pressure Cuff Size BRITTNI LU [employer] ADMINISTRATOR-TECHNICAL PROGRAM MANAGER [facility] 11-15-2022 09:52-0500 Blood Pressure Location BRITTNI LU [employer] ADMINISTRATOR-TECHNICAL PROGRAM MANAGER [facility] 11-15-2022 09:52-0500 Blood Pressure Method BRITTNI LU [employer] ADMINISTRATOR-TECHNICAL PROGRAM MANAGER [facility] 11-15-2022 09:52-0500 Body height 167.6 cm BRITTNI LU [employer] ADMINISTRATOR-TECHNICAL PROGRAM MANAGER [facility] 11-15-2022 09:52-0500 Body temperature 98.24 [degF] BRITTNI LU [employer] ADMINISTRATOR-TECHNICAL PROGRAM MANAGER [facility] 11-15-2022 09:52-0500 Body weight 50 kg BRITTNI LU [employer] ADMINISTRATOR-TECHNICAL PROGRAM MANAGER [facility] 11-15-2022 09:52-0500 Body weight 17.8 kg/m2 BRITTNI LU [employer] ADMINISTRATOR-TECHNICAL PROGRAM MANAGER [facility] 10-08-2022 14:35-0500 Diastolic Blood Pressure Non-Invasive 83 1 FLIP MARTIN MD [facility] 10-08-2022 14:35-0500 Heart rate 85 /min FLIP MARTIN MD [facility] 10-08-2022 14:35-0500 Reason For Taking VItal Signs FLIP MARTIN MD [facility] 10-08-2022 14:35-0500 Respiratory rate 16 /min FLIP MARTIN MD [facility] 10-08-2022 14:35-0500 Systolic Blood Pressure Non-Invasive 114 1 FLIP MARTIN MD [facility] 10-08-2022 07:30-0500 Body temperature 98.24 [degF] FLIP MARTIN MD [facility] 10-08-2022 07:30-0500 Diastolic Blood Pressure Non-Invasive 73 1 FLIP MARTIN MD [facility] 10-08-2022 07:30-0500 Heart rate 81 /min FLIP MARTIN MD [facility] 10-08-2022 07:30-0500 Reason For Taking VItal Signs FLIP MARTIN MD [facility] 10-08-2022 07:30-0500 Respiratory rate 14 /min FLIP MARTIN MD [facility] 10-08-2022 07:30-0500 Systolic Blood Pressure Non-Invasive 99 1 FLIP MARTIN MD [facility] 10-07-2022 21:42-0500 Body temperature 98.24 [degF] FLIP MARTIN MD [facility] 10-07-2022 21:42-0500 Diastolic Blood Pressure Non-Invasive 69 1 FLIP MARTIN MD [facility] 10-07-2022 21:42-0500 Heart rate 86 /min FLIP MARTIN MD [facility] 10-07-2022 21:42-0500 Respiratory rate 16 /min FLIP MARTIN MD [facility] 10-07-2022 21:42-0500 Systolic Blood Pressure Non-Invasive 94 1 FLIP MARTIN MD [facility] 10-07-2022 15:38-0500 Body temperature 98.24 [degF] FLIP MARTIN MD [facility] 10-07-2022 15:38-0500 Reason For Taking VItal Signs FLIP MARTIN MD [facility] 10-05-2022 20:19-0500 Heart rate 102 /min FLIP MARTIN MD [facility] 10-05-2022 15:56-0500 Heart rate 74 /min FLIP MARTIN MD [facility] 10-05-2022 12:04-0500 Heart rate 79 /min FLIP MARTIN MD [facility] 10-01-2022 21:35-0500 Heart rate 62 /min FLIP MARTIN MD [facility] 09-30-2022 17:45-0500 Body height 167.6 cm FLPI MARTIN MD [facility] 09-30-2022 17:45-0500 Body weight 50.4 kg FLIP MARTIN MD [facility] 09-30-2022 17:45-0500 Body weight 17.94 kg/m2 FLIP MARTIN MD [facility] 09-30-2022 10:13-0500 Body weight 50.4 kg FLIP MARTIN MD [facility] 09-27-2022 15:45-0500 Body temperature 99.14 [degF] GUCCI ALEXANDRE MD [facility] 09-27-2022 15:45-0500 Body weight 50.2 kg GUCCI ALEXANDRE MD [facility] 09-27-2022 15:45-0500 Diastolic Blood Pressure Non-Invasive 108 1 GUCCI ALEXANDRE MD [facility] 09-27-2022 15:45-0500 Heart rate 122 /min GUCCI ALEXANDRE MD [facility] 09-27-2022 15:45-0500 Systolic Blood Pressure Non-Invasive 126 1 GUCCI ALEXANDRE MD [facility] 08-16-2022 13:01-0400 Body temperature 98.06 [degF] FLIP MARTIN MD [facility] 08-16-2022 13:01-0400 Diastolic blood pressure 75 mm[Hg] FLIP MARTIN MD [facility] 08-16-2022 13:01-0400 Heart rate 107 /min FLIP MARTIN MD [facility] 08-16-2022 13:01-0400 Reason For Taking VItal Signs FLIP MARTIN MD [facility] 08-16-2022 13:01-0400 Respiratory rate 16 /min FLIP MARTIN MD [facility] 08-16-2022 13:01-0400 Systolic blood pressure 102 mm[Hg] FLIP MARTIN MD [facility] 08-16-2022 07:18-0400 Body temperature 97.52 [degF] FLIP MARTIN MD [facility] 08-16-2022 07:18-0400 Diastolic blood pressure 88 mm[Hg] FLIP MARTIN MD [facility] 08-16-2022 07:18-0400 Heart rate 99 /min FLIP MARTIN MD [facility] 08-16-2022 07:18-0400 Reason For Taking VItal Signs FLIP MARTIN MD [facility] 08-16-2022 07:18-0400 Respiratory rate 16 /min FLIP MARTIN MD [facility] 08-16-2022 07:18-0400 Systolic blood pressure 131 mm[Hg] FLIP MARTIN MD [address] [place] [address] 08-16-2022 04:44-0400 Body temperature 97.7 [degF] FLIP MARTIN MD [address] [place] [address] 08-16-2022 04:44-0400 Diastolic blood pressure 82 mm[Hg] FLIP MARTIN MD [address] [place] [address] 08-16-2022 04:44-0400 Heart rate 92 /min FLIP MARTIN MD [address] [place] [address] 08-16-2022 04:44-0400 Respiratory rate 16 /min FLIP MARTIN MD [address] [place] [address] 08-16-2022 04:44-0400 Systolic blood pressure 108 mm[Hg] FLIP MARTIN MD [address] [place] [address] 08-15-2022 20:36-0400 Mean blood pressure 94 mm[Hg] FLIP MARTIN MD [address] [place] [address] 08-15-2022 20:36-0400 Reason For Taking VItal Signs FLIP MARTIN MD [facility] 08-15-2022 08:42-0400 Heart rate 92 /min FLIP MARTIN MD [facility] 08-14-2022 13:15-0400 Heart rate 75 /min FLIP MARTIN MD [address] [place] [address] 08-14-2022 13:15-0400 Mean blood pressure 104 mm[Hg] FLIP MARTIN MD [facility] 08-14-2022 13:05-0400 Heart rate 80 /min FLIP MARTIN MD [facility] 08-14-2022 13:05-0400 Mean blood pressure 104 mm[Hg] FLIP MARTIN MD [facility] 08-11-2022 03:14-0400 Heart rate 88 /min FLIP MARTIN MD [facility] 08-10-2022 23:33-0400 Heart rate 75 /min FLIP MARTIN MD [facility] 08-08-2022 16:51-0400 Body height 167.6 cm FLIP MARTIN MD [facility] 08-08-2022 16:51-0400 Body weight 52.5 kg FLIP MARTIN MD [facility] 08-08-2022 16:51-0400 Body weight 18.69 kg/m2 FLIP MARTIN MD [facility] 08-08-2022 16:05-0400 Diastolic blood pressure 87 mm[Hg] BRITTNI LU WAGE AND SALARY ADMINISTRATOR-TECHNICAL PROGRAM MANAGER [facility] 08-08-2022 16:05-0400 Heart rate 65 /min BRITTNI LU [employer]AGE AND SALARY ADMINISTRATOR-TECHNICAL PROGRAM MANAGER [facility] 08-08-2022 16:05-0400 Respiratory rate 18 /min BRITTNI LU [employer]AGE AND SALARY ADMINISTRATOR-TECHNICAL PROGRAM MANAGER [facility] 08-08-2022 16:05-0400 Systolic blood pressure 130 mm[Hg] BRITTNI LU WAGE AND SALARY ADMINISTRATOR-TECHNICAL PROGRAM MANAGER [facility] 08-08-2022 14:27-0400 Body temperature 97.88 [degF] BRITTNI LU WAGE AND SALARY ADMINISTRATOR-TECHNICAL PROGRAM MANAGER [facility] 08-08-2022 14:27-0400 Reason For Taking VItal Signs BRITTNI LU WAGE AND SALARY ADMINISTRATOR-TECHNICAL PROGRAM MANAGER [facility] 10-06-2022 13:43-0400 diastolic 87 mm[Hg] BRITTNI LU WAGE AND SALARY ADMINISTRATOR-TECHNICAL PROGRAM MANAGER [facility] 08-08-2022 13:43-0400 Heart rate 71 /min BRITTNI LU WAGE AND SALARY ADMINISTRATOR-TECHNICAL PROGRAM MANAGER [facility] 08-08-2022 13:43-0400 Respiratory rate 18 /min BRITTNI LU WAGE AND SALARY ADMINISTRATOR-TECHNICAL PROGRAM MANAGER [facility] 08-08-2022 13:43-0400 systolic 126 mm[Hg] BRITTNI LU WAGE AND SALARY ADMINISTRATOR-TECHNICAL PROGRAM MANAGER [facility] 07-04-2022 13:38-0400 Diastolic blood pressure 80 mm[Hg] BRITTNI LU WAGE AND SALARY ADMINISTRATOR-TECHNICAL PROGRAM MANAGER [facility] 07-04-2022 13:38-0400 Heart rate 77 /min BRITTNI LU WAGE AND SALARY ADMINISTRATOR-TECHNICAL PROGRAM MANAGER [facility] 07-04-2022 13:38-0400 Mean blood pressure 91 mm[Hg] BRITTNI LU WAGE AND SALARY ADMINISTRATOR-TECHNICAL PROGRAM MANAGER [facility] 07-04-2022 13:38-0400 Respiratory rate 18 /min BRITTNI LU WAGE AND SALARY ADMINISTRATOR-TECHNICAL PROGRAM MANAGER [facility] 07-04-2022 13:38-0400 Systolic blood pressure 113 mm[Hg] BRITTNI LU WAGE AND SALARY ADMINISTRATOR-TECHNICAL PROGRAM MANAGER [facility] 07-04-2022 13:20-0400 Diastolic blood pressure 85 mm[Hg] BRITTNI LU WAGE AND SALARY ADMINISTRATOR-TECHNICAL PROGRAM MANAGER [facility] 07-04-2022 13:20-0400 Heart rate 74 /min BRITTNI LU WAGE AND SALARY ADMINISTRATOR-TECHNICAL PROGRAM MANAGER [facility] 07-04-2022 13:20-0400 Mean blood pressure 95 mm[Hg] BRITTNI LU WAGE AND SALARY ADMINISTRATOR-TECHNICAL PROGRAM MANAGER [facility] 07-04-2022 13:20-0400 Respiratory rate 16 /min BRITTNI POPEDEZ WAGE AND SALARY ADMINISTRATOR-TECHNICAL PROGRAM MANAGER [facility] 07-04-2022 13:20-0400 Systolic blood pressure 114 mm[Hg] BRITTNI LU WAGE AND SALARY ADMINISTRATOR-TECHNICAL PROGRAM MANAGER [facility] 07-04-2022 12:58-0400 Diastolic blood pressure 86 mm[Hg] BRITTNI LU WAGE AND SALARY ADMINISTRATOR-TECHNICAL PROGRAM MANAGER [facility] 07-04-2022 12:58-0400 Heart rate 77 /min BRITTNI LU WAGE AND SALARY ADMINISTRATOR-TECHNICAL PROGRAM MANAGER [facility] 07-04-2022 12:58-0400 Mean blood pressure 99 mm[Hg] BRITTNI LU WAGE AND SALARY ADMINISTRATOR-TECHNICAL PROGRAM MANAGER [facility] 07-04-2022 12:58-0400 Respiratory rate 16 /min BRITTNI POPEDEZ WAGE AND SALARY ADMINISTRATOR-TECHNICAL PROGRAM MANAGER [facility] 07-04-2022 12:58-0400 Systolic blood pressure 124 mm[Hg] BRITTNI LU WAGE AND SALARY ADMINISTRATOR-TECHNICAL PROGRAM MANAGER [facility] 07-04-2022 10:37-0400 Body height 167.6 cm BRITTNI POPEDEZ WAGE AND SALARY ADMINISTRATOR-TECHNICAL PROGRAM MANAGER [facility] 07-04-2022 10:37-0400 Body temperature 98.06 [degF] BRITTNI LU WAGE AND SALARY ADMINISTRATOR-TECHNICAL PROGRAM MANAGER [facility] 07-04-2022 10:37-0400 Body weight 45.4 kg BRITTNI LU WAGE AND SALARY ADMINISTRATOR-TECHNICAL PROGRAM MANAGER [facility] 07-04-2022 10:37-0400 Body weight 16.16 kg/m2 BRITTNI LU WAGE AND SALARY ADMINISTRATOR-TECHNICAL PROGRAM MANAGER [facility] 07-04-2022 10:37-0400 diastolic 87 mm[Hg] BRITTNI LU WAGE AND SALARY ADMINISTRATOR-TECHNICAL PROGRAM MANAGER [facility] 07-04-2022 10:37-0400 Heart rate 88 /min [facility] 07-04-2022 10:37-0400 systolic 123 mm[Hg] BRITTNI LU WAGE AND SALARY ADMINISTRATOR-[facility] 04-19-2022 16:12-0400 Body temperature 98.42 [degF] FLIP MARTIN MD [facility] 04-19-2022 16:12-0400 Diastolic blood pressure 88 mm[Hg] FLIP MARTIN MD [facility] 04-19-2022 16:12-0400 Heart rate 72 /min FLIP MARTIN MD [facility] 04-19-2022 16:12-0400 Reason For Taking VItal Signs FLIP MARTIN MD [facility] 04-19-2022 16:12-0400 Respiratory rate 16 /min FLIP MARTIN MD [facility] 04-19-2022 16:12-0400 Systolic blood pressure 125 mm[Hg] FLIP MARTIN MD [facility] 04-19-2022 12:04-0400 Body temperature 98.6 [degF] FLIP MARTIN MD [facility] 04-19-2022 12:04-0400 Diastolic blood pressure 100 mm[Hg] FLIP MARTIN MD [facility] 04-19-2022 12:04-0400 Heart rate 82 /min FLIP MARTIN MD [facility] 04-19-2022 12:04-0400 Reason For Taking VItal Signs FLIP MARTIN MD [facility] 04-19-2022 12:04-0400 Respiratory rate 16 /min FLIP MARTIN MD [facility] 04-19-2022 12:04-0400 Systolic blood pressure 133 mm[Hg] FLIP MARTIN MD [facility] 04-19-2022 08:19-0400 Body temperature 97.7 [degF] FLIP MARTIN MD [facility] 04-19-2022 08:19-0400 Diastolic blood pressure 87 mm[Hg] FLIP MARTIN MD [facility] 04-19-2022 08:19-0400 Heart rate 78 /min FLIP MARTIN MD [facility] 04-19-2022 08:19-0400 Reason For Taking VItal Signs FLIP MARTIN MD [facility] 04-19-2022 08:19-0400 Respiratory rate 16 /min FLIP MARTIN MD [facility] 04-19-2022 08:19-0400 Systolic blood pressure 123 mm[Hg] FLIP MARTIN MD [facility] 06-15-2022 13:37-0400 Mean blood pressure 109 mm[Hg] FLIP MARTIN MD [facility] 04-17-2022 08:19-0400 Mean blood pressure 88 mm[Hg] FLIP MARTIN MD [facility] 04-15-2022 21:40-0400 Mean blood pressure 106 mm[Hg] FLIP MRATIN MD [facility] 04-14-2022 22:09-0400 Body height 167.6 cm FLIP MARTIN MD [facility] 04-14-2022 22:09-0400 Body weight 45.4 kg FLIP MARTIN MD [facility] 04-14-2022 22:09-0400 Body weight 16.16 kg/m2 FLIP MARTIN MD [facility] 04-11-2022 15:18-0400 Diastolic blood pressure 96 mm[Hg] BRITTNI LU WAGE AND SALARY ADMINISTRATOR-TECHNICAL PROGRAM MANAGER [facility] 04-11-2022 15:18-0400 Heart rate 72 /min BRITTNI LU WAGE AND SALARY ADMINISTRATOR-TECHNICAL PROGRAM MANAGER [facility] 04-11-2022 15:18-0400 Respiratory rate 16 /min BRITTNI LU WAGE AND SALARY ADMINISTRATOR-TECHNICAL PROGRAM MANAGER [facility] 04-11-2022 15:18-0400 Systolic blood pressure 144 mm[Hg] BRITTNI LU WAGE AND SALARY ADMINISTRATOR-TECHNICAL PROGRAM MANAGER [facility] 04-11-2022 14:45-0400 Diastolic Blood Pressure NBP 87 1 BRITTNI LU WAGE AND SALARY ADMINISTRATOR-TECHNICAL PROGRAM MANAGER [facility] 04-11-2022 14:45-0400 Heart rate 69 /min BRITTNI LU WAGE AND SALARY ADMINISTRATOR-TECHNICAL PROGRAM MANAGER [facility] 04-11-2022 14:45-0400 Respiratory rate 14 /min BRITTNI LU WAGE AND SALARY ADMINISTRATOR-TECHNICAL PROGRAM MANAGER [facility] 04-11-2022 14:45-0400 Systolic Blood Pressure NBP 130 1 BRITTNI LU WAGE AND SALARY ADMINISTRATOR-TECHNICAL PROGRAM MANAGER [facility] 04-11-2022 14:30-0400 Diastolic Blood Pressure NBP 93 1 BRITTNI LU WAGE AND SALARY ADMINISTRATOR-TECHNICAL PROGRAM MANAGER [facility] 04-11-2022 14:30-0400 Heart rate 70 /min BRITTNI LU WAGE AND SALARY ADMINISTRATOR-TECHNICAL PROGRAM MANAGER [facility] 04-11-2022 14:30-0400 Respiratory rate 14 /min BRITTNI LU WAGE AND SALARY ADMINISTRATOR-TECHNICAL PROGRAM MANAGER [facility] 04-11-2022 14:30-0400 Systolic Blood Pressure NBP 126 1 BRITTNI LU WAGE AND SALARY ADMINISTRATOR-TECHNICAL PROGRAM MANAGER [facility] 04-11-2022 14:15-0400 Diastolic blood pressure 97 mm[Hg] BRITTNI LU WAGE AND SALARY ADMINISTRATOR-TECHNICAL PROGRAM MANAGER [facility] 04-11-2022 14:15-0400 Heart rate 77 /min BRTITNI POPEDEZ WAGE AND SALARY ADMINISTRATOR-TECHNICAL PROGRAM MANAGER [facility] 04-11-2022 14:15-0400 Mean blood pressure 112 mm[Hg] BRITTNI LU WAGE AND SALARY ADMINISTRATOR-TECHNICAL PROGRAM MANAGER [facility] 04-11-2022 14:15-0400 Systolic blood pressure 142 mm[Hg] BRITTNI LU WAGE AND SALARY ADMINISTRATOR-TECHNICAL PROGRAM MANAGER [facility] 04-11-2022 14:10-0400 Diastolic blood pressure 111 mm[Hg] BRITTNI LU WAGE AND SALARY ADMINISTRATOR-TECHNICAL PROGRAM MANAGER [facility] 04-11-2022 14:10-0400 Heart rate 76 /min BRITTNI LU WAGE AND SALARY ADMINISTRATOR-TECHNICAL PROGRAM MANAGER [facility] 04-11-2022 14:10-0400 Mean blood pressure 124 mm[Hg] BRITTNI LU WAGE AND SALARY ADMINISTRATOR-TECHNICAL PROGRAM MANAGER [facility] 04-11-2022 14:10-0400 Systolic blood pressure 150 mm[Hg] BRITTNI LU WAGE AND SALARY ADMINISTRATOR-TECHNICAL PROGRAM MANAGER [facility] 04-11-2022 14:05-0400 Heart rate 85 /min BRITTNI LU WAGE AND SALARY ADMINISTRATOR-TECHNICAL PROGRAM MANAGER [facility] 04-11-2022 14:05-0400 Mean blood pressure 96 mm[Hg] BRITTNI LU WAGE AND SALARY ADMINISTRATOR-TECHNICAL PROGRAM MANAGER [facility] 04-11-2022 13:05-0400 Body temperature 97.88 [degF] BRITTNI LU WAGE AND SALARY ADMINISTRATOR-TECHNICAL PROGRAM MANAGER [facility] 03-26-2022 11:47-0400 Body height 167.6 cm ERI PATRICK WAGE AND SALARY ADMINISTRATOR-TECHNICAL PROGRAM MANAGER [facility] 03-26-2022 11:47-0400 Body temperature 98.06 [degF] ERI PATRICK WAGE AND SALARY ADMINISTRATOR-TECHNICAL PROGRAM MANAGER [facility] 03-26-2022 11:47-0400 Body weight 45.4 kg ERI PATRICK WAGE AND SALARY ADMINISTRATOR-TECHNICAL PROGRAM MANAGER [facility] 03-26-2022 11:47-0400 Body weight 16.16 kg/m2 ERI PATRICK WAGE AND SALARY ADMINISTRATOR-TECHNICAL PROGRAM MANAGER [facility] 03-26-2022 11:47-0400 diastolic 88 mm[Hg] ERI PATRICK WAGE AND SALARY ADMINISTRATOR-TECHNICAL PROGRAM MANAGER [facility] 03-26-2022 11:47-0400 Heart rate 76 /min ERI PATRICK WAGE AND SALARY ADMINISTRATOR-TECHNICAL PROGRAM MANAGER [facility] 03-26-2022 11:47-0400 Respiratory rate 18 /min ERI PATRICK WAGE AND SALARY ADMINISTRATOR-TECHNICAL PROGRAM MANAGER [facility] 03-26-2022 11:47-0400 systolic 132 mm[Hg] ERI PATRICK WAGE AND SALARY ADMINISTRATOR-TECHNICAL PROGRAM MANAGER [facility] 12-21-2021 10:38-0500 Body height 167.6 cm FLIP MARTIN MD [facility] 12-21-2021 10:38-0500 Body temperature 98.06 [degF] FLIP MARTIN MD [facility] 12-21-2021 10:38-0500 Body weight 47.7 kg FLIP MARTIN MD [facility] 12-21-2021 10:38-0500 Body weight 16.98 kg/m2 FLIP MARTIN MD [facility] 12-21-2021 10:38-0500 diastolic 101 mm[Hg] FLIP MARTIN MD [facility] 12-21-2021 10:38-0500 Heart rate 81 /min FLIP MARTIN MD [facility] 12-21-2021 10:38-0500 Respiratory rate 16 /min FLIP MARTIN MD [facility] 12-21-2021 10:38-0500 systolic 129 mm[Hg] FLIP MARTIN MD [facility] 07-14-2021 10:43-0400 Body temperature 98.42 [degF] Flip Martin [facility] 07-14-2021 10:43-0400 Diastolic blood pressure 83 mm[Hg] Flip Martin [facility] 07-14-2021 10:43-0400 Heart rate 68 /min Flip Martin [facility] 07-14-2021 10:43-0400 Respiratory rate 18 /min Flip Martin [facility] 07-14-2021 10:43-0400 SaO2% (BldA) [Mass fraction] 100 % Flip Martin [facility] 07-14-2021 10:43-0400 Systolic blood pressure 129 mm[Hg] Flip Martin [facility] 07-14-2021 07:44-0400 Body weight 47.7 kg Flip Martin [facility] Encounters Encounter Date Encounter Type Care Provider Facility Start: 06-01-2025 End: 06-02-2025 Emergency department patient visit Dr. Jatin Garcia MD Work Phone: -Emergency Department Work Phone: Start: 06-01-2025 End: 06-01-2025 Emergency department patient visit [facility] Start: 05-27-2025 End: 05-30-2025 Evaluation and management of inpatient DR OLI HERRERA MD [facility] Start: 05-26-2025 End: 05-26-2025 Emergency department patient visit [facility] Start: 05-25-2025 End: 05-26-2025 Emergency department patient visit DR ARLYE MARIE DO [facility] Start: 05-17-2025 End: 05-17-2025 Telephone encounter Ben Fonseca MD Work Phone: [facility] Start: 05-11-2025 ambulatory OLE PACE MD Faci lity:A Start: 05-11-2025 End: 05-11-2025 ambulatory OLE PACE MD Facility:A Start: 05-08-2025 End: 05-09-2025 Emergency department patient visit JASKARAN MEDRANO MD [facility] Start: 05-04-2025 End: 05-07-2025 Emergency department patient visit OLE PACE MD Facility:A Start: 05-04-2025 End: 05-07-[address] RHIANNON ARTEAGA MD [facility] Start: 05-03-2025 End: 05-03-2025 Emergency department patient visit GONZALEZ GUDINO [facility] Start: 05-03-2025 End: 05-03-2025 Emergency department patient visit GUCCI ALEXANDRE MD [facility] Start: 05-02-2025 End: 05-03-2025 Emergency department patient visit GABBY ELENA [facility] Start: 04-29-2025 End: 04-29-2025 Emergency department patient visit GONZALEZ GUDINO [facility] Start: 04-11-2025 End: 04-11-2025 ambulatory OLE PACE MD Facility:A Start: 04-11-2025 End: 04-11-2025 Patient encounter procedure LEONARDO PENA WAGE AND SALARY ADMINISTRATOR-TECHNICAL PROGRAM MANAGER [facility] Start: 04-09-2025 End: 04-09-2025 Emergency department patient visit Dr. Jatin Garcia MD Work Phone: -Emergency Department Work Phone: Start: 04-06-2025 End: 04-07-2025 Emergency department patient visit OLE PACE MD Facility:A Start: 04-06-2025 End: 04-07-2025 Observation BHUPENDRA GALVEZ DO [facility] Start: 04-05-2025 ambulatory PINA PANTOJA WAGE AND SALARY ADMINISTRATOR-TECHNICAL PROGRAM MANAGER Facility:A Start: 04-04-2025 End: 04-05-2025 Emergency department patient visit OLE PACE MD Facility:A Start: 04-04-2025 End: 04-05-[address] RHIANNON ARTEAGA MD [facility] Start: 04-04-2025 ambulatory OLE PACE MD Faci lity:A Start: 04-03-2025 End: 04-03-2025 Emergency department patient visit CHRISTO SCALES [facility] Start: 04-01-2025 End: 04-01-2025 Emergency department patient visit GONZALEZ ABEBE [facility] Start: 03-30-2025 End: 03-30-2025 ambulatory GONZALEZ SANDERS MD Facility:A Start: 03-30-2025 End: 03-30-2025 Patient encounter procedure GONZALEZ SANDERS MD [employer] Start: 03-25-[address] MADELINE APARICIO MD [facility] ity:A Start: 03-23-2025 End: 03-23-2025 Emergency department patient visit [facility] Start: 03-15-2025 End: 03-15-2025 Emergency department patient visit GUCCI ALXEANDRE MD [facility] Start: 03-09-2025 End: 03-09-2025 Emergency department patient visit DELMAR MICHAEL DO [facility] [employer] Start: 03-08-2025 End: 03-08-2025 Emergency department patient visit GUCCI [facility] Start: 03-08-2025 End: 03-08-2025 ambulatory GONZALEZ SANDRES MD Facility:A Start: 03-08-2025 End: 03-08-2025 Patient encounter procedure GONZALEZ SANDERS MD [facility] Start: 03-07-2025 End: 03-07-2025 Emergency department patient visit ALICIA LORA [facility] Start: 03-05-2025 End: 03-06-2025 [facility] Start: 02-16-2025 End: 02-16-2025 ambulatory OLE MONK MD Facility:A Start: 02-16-2025 End: 02-16-2025 SAME DAY STAY PINA PANTOJA WAGE AND SALARY ADMINISTRATOR-TECHNICAL PROGRAM MANAGER [facility] Start: 02-14-2025 End: 02-14-2025 ambulatory OLE PACE MD Facility:A Start: 02-10-2025 End: 02-10-2025 Emergency department patient visit GONZALEZ GUDINO [facility] Start: 02-01-2025 ambulatory PINA PANTOJA WAGE AND SALARY ADMINISTRATOR-TECHNICAL PROGRAM MANAGER Facility:A Start: 01-29-2025 End: 01-29-2025 Emergency department patient visit GONZALEZ GUDINO [facility] Start: 01-21-2025 End: 01-21-2025 Emergency department patient visit BEATRICE GUDINO [facility] Start: 12-22-2024 ambulatory CLOTILDE RANDHAWA DO Fac ility:A Start: 12-22-2024 End: 12-22-2024 ambulatory CLOTILDE RANDHAWA DO Facility:A Start: 12-22-2024 End: 12-22-2024 SAME DAY STAY NASRIN ISABEL MD [facility] Start: 12-13-2024 End: 12-13-2024 ambulatory OLE PACE MD Facility:A Start: 12-10-2024 End: 12-10-2024 Emergency department patient visit GONZALEZ GUDINO [facility] Start: 11-15-2024 End: 11-19-2024 ambulatory NASRIN ISABEL MD Facility:A Start: 11-15-2024 End: 11-15-2024 ambulatory NASRIN ISABEL MD Facility:A Start: 11-06-2024 End: 11-06-2024 [facility] Start: 10-13-2024 End: 10-13-2024 ambulatory VON BACA MD Facility:A Start: 10-01-2024 ambulatory TADEO LEIJA PA-C Fa patyty:A Start: 09-28-2024 End: 09-28-2024 ambulatory OLE PACE MD Facility:A Start: 08-31-2024 End: 08-31-2024 Emergency department patient visit ALICIA LORA [facility] Start: 08-16-2024 End: 08-16-2024 ambulatory OLE PACE MD Facility:A Start: 08-11-2024 End: 08-11-2024 ambulatory NAYELI BRICE DO Facility:A Start: 08-11-2024 End: 08-11-2024 SAME DAY STAY NASRIN ISABEL MD [facility] Start: 08-06-2024 End: 08-06-2024 Admission to establishment NASRIN ISABEL MD [facility] [employer] Start: 08-06-2024 End: 08-06-2024 ambulatory NASRIN ISABEL MD Facility:A Start: 07-19-2024 End: 07-19-2024 ambulatory OLE PACE MD Facility:A Start: 07-10-2024 ambulatory FLIP [facility]OR[facility] Start: 07-10-2024 End: 07-10-2024 Emergency department patient visit [facility] Start: 06-24-2024 End: 06-24-2024 Emergency department patient visit [facility] Start: 06-21-2024 End: 06-21-2024 ambulatory PROVIDER NOT SPECIFIED OTHER Facility:A Start: 06-10-2024 ambulatory PROVIDER NOT SPECIFIED OTHER Facility:A Start: 06-10-2024 ambulatory PROVIDER NOT SPECIFIED OTHER Facility:A Start: 06-09-2024 End: 06-09-2024 ambulatory VIRAL MANUEL MD Facility:A Start: 06-09-2024 End: 06-09-2024 SAME DAY STAY [facility] Start: 05-25-2024 ambulatory PROVIDER NOT SPECIFIED OTHER Facility:A Start: 05-24-2024 End: 05-24-2024 ambulatory PROVIDER NOT SPECIFIED OTHER Facility:A Start: 04-28-2024 End: 04-28-2024 ambulatory PROVIDER NOT SPECIFIED OTHER Facility:A Start: 04-14-2024 End: 04-14-2024 ambulatory DAVID SMITH MD Facility:A Start: 04-14-2024 End: 04-14-2024 SAME DAY STAY OLE PACE MD [facility] [employer] Start: 03-04-2024 End: 03-04-2024 Patient encounter procedure OLE PACE MD [facility] Start: 03-03-2024 End: 03-04-2024 ambulatory PROVIDER NOT SPECIFIED OTHER Facility:A Start: 03-03-2024 End: 03-03-2024 SAME DAY STAY OLE PACE MD [facility] Start: 02-04-2024 End: 02-04-2024 ambulatory NONE PHYSICIAN Facility:A Start: 01-21-2024 End: 01-21-2024 ambulatory HILDA HADDAD MD Facility:A Start: 01-21-2024 End: 01-21-2024 SAME DAY STAY OLE PACE MD [facility] Start: 01-13-2024 ambulatory NONE PHYSICIAN Facility :A Start: 01-06-2024 End: 01-06-2024 ambulatory NONE PHYSICIAN Facility:A Start: 01-06-2024 End: 01-06-2024 Patient encounter procedure OLE PACE MD [facility] Start: 12-17-2023 ambulatory NONE PHYSICIAN Facility :A Start: 12-08-2023 End: 12-08-2023 ambulatory NONE PHYSICIAN Facility:A Start: 12-08-2023 End: 12-08-2023 Patient encounter procedure OLE PACE MD [facility] Start: 12-08-2023 End: 12-08-2023 ambulatory NONE PHYSICIAN Facility:A Start: 12-03-2023 End: 12-03-2023 ambulatory RITA YEH MD Facility:A Start: 12-03-2023 End: 12-03-2023 SAME DAY STAY BRITTNI PRATHERZ WAGE AND SALARY ADMINISTRATOR-TECHNICAL PROGRAM MANAGER [facility] Start: 11-19-2023 End: 11-19-2023 ambulatory HOWARD PHYSICIAN Facility:A Start: 11-19-2023 End: 11-19-2023 Patient encounter procedure OLE PACE MD [facility] Start: 10-22-2023 End: 10-22-2023 ambulatory VIRAL MASON MD, Ph.D Facility:A Start: 10-22-2023 End: 10-22-2023 SAME DAY STAY BRITTNI LU WAGE AND SALARY ADMINISTRATOR-TECHNICAL PROGRAM MANAGER [facility] Start: 09-12-2023 End: 09-12-2023 ambulatory FLIP MARTIN MD Facility:A Start: 09-12-2023 End: 09-12-2023 Patient encounter procedure OLE PACE MD [facility] Start: 08-28-2023 End: 08-28-2023 ambulatory FLIP MARTIN MD Facility:A Start: 08-25-2023 ambulatory FLIP MARTIN MD Facili ty:A Start: 08-21-2023 End: 08-21-2023 ambulatory FLIP MARTIN MD Facility:A Start: 08-21-2023 End: 08-21-2023 Patient encounter procedure [facility] Start: 07-30-2023 End: 08-03-2023 ambulatory FLIP MARTIN MD Facility:A Start: 07-30-2023 End: 07-30-2023 ambulatory FLIP MARTIN MD Facility:A Start: 07-30-2023 End: 07-30-2023 Patient encounter procedure FLIP MARTIN MD [facility] Start: 07-24-2023 End: 07-24-2023 ambulatory MARIN COTE MD Facility:A Start: 07-24-2023 End: 07-24-2023 SAME DAY STAY FLIP MARTIN MD [facility] Start: 07-18-2023 ambulatory FLIP MARTIN MD Facili ty:A Start: 07-08-2023 End: 07-16-2023 Evaluation and management of inpatient FLIP MARTIN MD [facility] Start: 07-08-2023 ambulatory FLIP MARTIN MD Facili ty:A Start: 06-26-2023 End: 06-26-2023 ambulatory FLIP MARTIN MD Facility:A Start: 06-26-2023 End: 06-26-2023 Patient encounter procedure FLIP MARTIN MD [facility] Start: 05-15-2023 End: 05-15-2023 Patient encounter procedure FLIP MARTIN MD [facility] Start: 04-27-2023 End: 05-07-2023 Evaluation and management of inpatient FLIP MARTIN MD [facility] Start: 02-23-2023 End: 03-05-2023 Evaluation and management of inpatient FLIP MARTIN MD [facility] Start: 02-17-2023 End: 02-17-2023 Patient encounter procedure BRITTNI OMER [facility] Start: 01-01-2023 End: 01-06-2023 Evaluation and management of inpatient FLIP MARTIN MD [facility] Start: 01-01-2023 End: 01-01-2023 Patient encounter procedure FLIP MARTIN MD [facility] Start: 01-01-2023 End: 01-01-2023 Patient encounter procedure FLIP MARTIN MD [facility] Start: 11-15-2022 End: 11-15-2022 Patient encounter procedure BRITTNI LU [employer] SAL[employer] ADMINISTRATOR-TECHNICAL PROGRAM MANAGER [facility] Start: 09-30-2022 End: 10-08-2022 Evaluation and management of inpatient FLIP MARTIN MD [facility] Start: 09-27-2022 End: 09-27-2022 Emergency department patient visit GUCCI ALEXANDRE MD [facility] Start: 08-08-2022 End: 08-16-2022 Evaluation and management of inpatient FLIP MARTIN MD [facility] Start: 08-08-2022 End: 08-08-2022 Patient encounter procedure BRITTNI LU [employer] AND SALARY ADMINISTRATOR-TECHNICAL PROGRAM MANAGER [facility] Start: 07-04-2022 End: 07-04-2022 Patient encounter procedure BRITTNI LU [employer]AGE AND SALARY ADMINISTRATOR-TECHNICAL PROGRAM MANAGER [facility] Start: 04-14-2022 End: 04-19-2022 Evaluation and management of inpatient FLIP MARTIN MD [facility] Start: 04-11-2022 End: 04-11-2022 Patient encounter procedure BRITTNI LU [employer] AND SALARY ADMINISTRATOR-TECHNICAL PROGRAM MANAGER [facility] Start: 03-26-2022 End: 03-26-2022 Patient encounter procedure ERI DARNELL WAGE AND SALARY ADMINISTRATOR-TECHNICAL PROGRAM MANAGER [facility] Start: 02-21-2022 End: 02-21-2022 Patient encounter procedure FLIP MARTIN MD [facility] Start: 12-21-2021 End: 12-21-2021 Patient encounter procedure FLIP MARTIN MD [facility] Start: 08-23-2021 End: 08-23-2021 Patient encounter procedure FLIP MARTIN MD [facility] Start: 07-11-2021 End: 07-14-2021 Evaluation and management of inpatient Shira Marias [facility] TT09 [id number] [id number] Procedures Date Procedure Procedure Detail Performing Clinician Start: 06-02-2025 Urnls dip stick/tabl et reagent auto microscopy Dr. Jatin Garcia MD Work Phone: Start: 06-02-[address] Jatin Garcia MD Work Phone: Start: 05-26-2025 Urinalysis GONZALEZ Jiménez Comment on above: Result Comment: URIN ALYSIS Performed By: #### 2 [id number] ####Alek [facility],[address] [place] [address] Start: 05-05-2025 Exchange nephrostomy catheter prq w/img gid rs&i DR ARLEY MARIE DO Start: 05-03-2025 End: 05-03-2025 Urinalysis GONZALEZ CARTER Comment on above: Result Comment: URIN ALYSIS Performed By: #### 2 [id number] ####[place] [id number] Start: 04-09-2025 Urnls dip stick/tabl et reagent auto microscopy Dr. Jatin Garcia MD Work Phone: Start: 04-09-[address] Jatin Garcia MD Work Phone: Start: 04-03-2025 Urinalysis GONZALEZ Jiménez Comment on above: Result Comment: URIN ALYSIS Performed By: #### 2 [id number] ####[place] [id number] Start: 04-01-2025 Urinalysis GONZALEZ Jiménez Comment on above: Result Comment: URIN ALYSIS Performed By: #### 2 [id number] ####[place] [id number] Start: 03-23-2025 Urinalysis GONZALEZ Jiménez Comment on above: Result Comment: URIN ALYSIS Performed By: #### 2 [id number] ####[place] [address] Start: 03-05-2025 Urinalysis GONZALEZ Jiménez Comment on above: Result Comment: URIN ALYSIS Performed By: #### 2 [id number] ####[place] [address] Start: 02-16-2025 Exchange nephrostomy catheter prq w/img gid rs&i GONZALEZ SANDERS MD Start: 02-10-2025 Urinalysis GONZALEZ Jiménez Comment on above: Result Comment: URIN ALYSIS Performed By: #### 2 [id number] ####[place] [address] Start: 02-10-2025 Urinalysis GONZALEZ Jiménez Comment on above: Result Comment: URIN ALYSIS Performed By: #### 2 [id number] ####[facility],[address] [place] [address] Start: 01-29-2025 Urinalysis GONZALEZ URBANO R Comment on above: Result Comment: URIN ALYSIS Performed By: #### 2 [id number] ####[facility],[address] [place] [address] Start: 12-22-2024 Exchange nephrostomy catheter prq w/img gid rs&i GONZALEZ SANDERS MD Start: 12-22-2024 Removal of implantab le venous access port GONZALEZ SANDERS MD Start: 12-10-2024 Urinalysis GONZALEZ URBANO R Comment on above: Result Comment: URIN ALYSIS Performed By: #### 2 [id number] ####[facility],[address] [place] [address] Start: 11-06-2024 End: 11-06-2024 Urinalysis GONZALEZ CARTER Comment on above: Result Comment: URIN ALYSIS Performed By: #### 2 [id number] ####[facility],[address] [place] [address] Start: 10-13-2024 Exchange nephrostomy catheter prq w/img gid rs&i GONZALEZ SANDERS MD Start: 07-10-2024 Urinalysis GONZALEZ URBANO R Comment on above: Result Comment: URIN ALYSIS Performed By: #### 2 [id number] ####[facility],[address] [place] [address] Start: 06-16-2024 JJ-stent (physical object) NASRIN ISABEL [...] a cervical biopsy done on 04/07/2020 at [facility] for a cervical mass Start: 11-03-2001 Tumor cells, benign (morphologic abnormality) FLIP MARTIN MD Comment on above: 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 done at [facility] in [place] Cannulation of subcutaneous reservoir FLIP MARTIN MD Comment on above: right H/O: surgery H/O insertion of nephrostomy tube Dr. Jatin Garcia MD Work Phone: History of radiation therapy History of radiation therapy( Confirmed ) FLIP MARTIN MD Nephrostomy with tub e drainage FLIP MARTIN MD Comment on above: left Plan of Treatment Date Care Activity Detail Author Start: 2063 RSV Immunization for Adults (1 - 1-dose 75+ series) RSV Immunization for Adults (1 - 1-dose 75+ series) [facility] Start: 2038 Zoster Vaccines (1 of 2) Zoster Vaccines (1 of 2) [facility] Start: 09-01-2025 Influenza vaccination Influenza Vaccine (#1) [facility] Start: 06-02-2025 Bacteria identified in Urine by Culture Urine Culture [place] Start: 06-02-2025 [place] Start: 05-26-2025 End: 05-26-2025 Patient encounter procedure 05/26/2025 2:00 PM EDT Office Visit [facility] [address] [place] [id number] Ben Fonseca MD [address] [place] [address] [facility] Start: 04-09-2025 [place] Start: 07-04-2024 COVID-19 Vaccine ( season) COVID-19 Vaccine ( season) [facility] Start: 08-09-2021 Patient encounter procedure [facility] [place] Start: 07-14-2021 End: 07-15-2022 Pneumococcal 13-Valent (PREVNAR 13) Vaccine 0.5 mL IntraMuscular Once ; DOSE = 0.5 mL IntraMuscular Once Start: 14-Jul-2021 End: 14-Jul-2022 Ordered: 13-Jul-2021 Alycia Pritchett [facility] Start: 2018 Screening for malignant neoplasm of cervix [facility] Start: 2009 Screening for malignant neoplasm of cervix Pap Smear [facility] Start: 2007 DTaP/Tdap/Td Vaccines (1 - Tdap) DTaP/Tdap/Td Vaccines (1 - Tdap) [facility] Start: 2007 Hepatitis B Vaccines (1 of 3 - 19+ 3-dose series) Hepatitis B Vaccines (1 of 3 - 19+ 3-dose series) [facility] Start: 2006 Hepatitis C screening Hepatitis C Screening [facility] Start: 2001 Varicella vaccination Varicella Vaccines (1 of 2 - 13+ 2-dose series) [facility] Start: 2000 Depression Screening Depression Screening [facility] Start: 1989 MMR Vaccines (1 of 1 - Standard series) MMR Vaccines (1 of 1 - Standard series) [facility] Start: 1988 HIV screening HIV Screening [facility] Patient Education [facility] Work Phone: Patient referral [facility] Work Phone: 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 [facility] Urine culture [facility] Immunizations Immunization Date Immunization Notes Care Provider Fa cility 06-16-2001 hepatitis B pediatri c vaccine BRITTNI LU WAGE AND SALARY ADMINISTRATOR-TECHNICAL PROGRAM MANAGER [facility] 06-16-2001 measles/mumps/rubell a virus vaccine BRITTNI LU WAGE AND SALARY ADMINISTRATOR-TECHNICAL PROGRAM MANAGER [facility] 06-21-1998 hepatitis B pediatri c vaccine [facility] WAGE AND SALARY ADMINISTRATOR-TECHNICAL PROGRAM MANAGER [facility] 04-06-1990 measles/mumps/rubell a virus [facility]MINISTRATOR-TECHNICAL PROGRAM MANAGER [facility] Payers Date Payer Category Payer Medicare [id number] 2024 Self-pay 2024 Medicare [id number] 2023 Private Health Insurance [id number] 2022 Medicaid [id number] 2022 Private Health Insurance [id number] 1988 Unknown [id number] 2..1.079321.3.579.2. 1988 Unknown [id number] ..1.537250.3.579.2. 1988 Unknown [id number] 2.840.1.928256.3.579.2. 627 1988 Unknown [id number] 2.840.1.881770.3.579.2 1988 Unknown [id number] 2.840.1.768103.3.579.2 1988 Unknown [id number] 2.840.1.764555.3.579.2 1988 Unknown [id number] 2.840.1.915568.3.579.2 1988 Unknown [id number] 2.840.1.780139.3.579.2 1988 Unknown [id number] 2.840.1.974923.3.579.2 1988 Unknown [id number] 2.840.1.541302.3.579.2 1988 Unknown [id number] 2.840.1.913968.3.579.2 1988 Unknown [id number] 2.840.1.360177.3.579.2 1988 Unknown [id number] 2.840.1.238450.3.579.2 1988 Unknown [id number] 2.840.1.631089.3.579.2 1988 Unknown [id number] 2840.1.589401.3.579.2 1988 Unknown [id number] 2.840.1.320201.3.579.2 1988 Unknown [id number] .840.1.386314.3.579.2 1988 Unknown [id number] 2.840.1.062360.3.579.2 1988 Unknown [id number] 2.840.1.561316.3.579.2 1988 Unknown [id number] 2.840.1.996533.3.579.2. 1988 Unknown [id number] 2.840.1.503134.3.579.2. 1988 Unknown [id number] 2.840.1.056858.3.579.2. 1988 Unknown [id number] 2.840.1.200772.3.579.2. 1988 Unknown [id number] 2.840.1.039529.3.579.2. 1988 Unknown [id number] 840.1.036691.3.579.2 1988 Unknown [id number] 2.1.750012.3.579.2 1988 Unknown [id number] .1.042082.3.579.2 1988 Unknown [id number] 840.1.805469.3.579.2. 1988 Unknown [id number] .1.437988.3.579.2 1988 Unknown [id number] 840.1.597039.3.579.2. 1988 Unknown [id number] .1.704465.3.579.2. 1988 Unknown [id number] 840.1.939241.3.579.2. 1988 Unknown [id number] 840.1.556082.3.579.2. 1988 Unknown [id number] 840.1.211100.3.579.2. 1988 Unknown [id number] 2840.1.899598.3.579.2 1988 Unknown [id number] 12.19.830.1.872684.3.579.2. 7 1988 Unknown [id number] 2.16840.1.463035.3.579.2 1988 Unknown [id number] 2.16840.1.242658.3.579.2 1988 Unknown [id number] 2.840.1.852681.3.579.2 1988 Unknown [id number] 2.840.1.970042.3.579.2 1988 Unknown [id number] 2.840.1.342373.3.579.2 1988 Unknown [id number] 2.840.1.874988.3.579.2 1988 Unknown [id number] 2840.1.988380.3.579.2 1988 Unknown [id number] 2.840.1.135128.3.579.2 1988 Unknown [id number] 2.840.1.566119.3.579.2 1988 Unknown [id number] 2840.1.624165.3.579.2 1988 Unknown [id number] 840.1.281260.3.579.2 1988 Unknown [id number] 840.1.668183.3.579.2 1988 Unknown [id number] 2840.1.364564.3.579.2 1988 Unknown [id number] 2.16840.1.344722.3.579.2 1988 Unknown [id number] 2840.1.646149.3.579.2 1988 Unknown [id number] 2.16840.1.257133.3.579.2. 627 1988 Unknown [id number] 2.16840.1.179069.3.579.2 1988 Unknown [id number] 2.16840.1.367395.3.579.2. 62 1988 Unknown [id number] 2.16840.1.654151.3.579.2 62 1988 Unknown [id number] 2.16840.1.871136.3.579.2 1988 Unknown [id number] 2.840.1.241070.3.579.2 1988 Unknown [id number] 2.840.1.678240.3.579.2 1988 Unknown [id number] 2.840.1.424452.3.579.2 1988 Unknown [id number] 2.840.1.329778.3.579.2 1988 Unknown [id number] 2.840.1.481939.3.579.2 1988 Unknown [id number] 2.840.1.647846.3.579.2 1988 Unknown [id number] 2.16840.1.481074.3.579.2. 62 1988 Unknown [id number] 2.16840.1.287128.3.579.2 1988 Unknown [id number] 2.16840.1.846671.3.579.2. 65 1988 Unknown [id number] 2.16840.1.393539.3.579.2. 651 1988 Unknown [id number] 2.16840.1.619192.3.579.2. 651 1988 Unknown [id number] 2.16.840.1.997493.3.579.2. 651 1988 Unknown [id number] 2.16.840.1.765277.3.579.2. 651 1988 Unknown [id number] 2.16840.1.983946.3.579.2. 651 1988 Unknown [id number] 2.16840.1.166026.3.579.2. 651 1988 Unknown [id number] 2.16840.1.358242.3.579.2. 65 1988 Unknown [id number] 2.16840.1.096353.3.579.2. 651 1988 Unknown [id number] 2.16840.1.414077.3.579.2. 65 1988 Unknown [id number] 2.16840.1.410829.3.579.2. 651 1988 Unknown [id number] 2.16840.1.852727.3.579.2. 651 1988 Unknown [id number] 2.16840.1.265176.3.579.2. 651 1988 Unknown [id number] 2.16840.1.232674.3.579.2. 651 1988 Unknown [id number] 2.16840.1.566002.3.579.2. 651 1988 Unknown [id number] 2.16840.1.499464.3.579.2. 651 1988 Unknown [id number] 2.16840.1.296187.3.579.2. 651 1988 Unknown [id number] 2.16840.1.360860.3.579.2. 651 1988 Unknown [id number] 2.16840.1.003994.3.579.2. 651 1988 Unknown [id number] 2..840.1.548521.3.579.2. 651 1988 Unknown [id number] 2.16.840.1.420175.3.579.2. 651 Unknown [facility] PL[facility] Medicare [id number] Unknown [id number] 2..840.1.182183.3.579.2. 462 Social History Date Type Detail Facility [facility] Tobacco smoking consumption unknown [facility] Start: 04-12-2020 End: 02-16-2025 Light tobacco smoker (finding) [facility] Comment on above: current vaping Start: 1990 Sex Assigned At Female A [facility] Start: 07-09-2023 End: 12-16-2024 Tobacco smoking status Ex-smoker (finding) [facility] Comment on above: current vaping Tobacco smoking status Never [facility] Comment on above: current vaping Sexual Orientation [facility] Start: 04-10-2020 End: 05-16-2025 Sex Female (finding) [facility] Start: 04-09-2025 End: 06-02-2025 Tobacco smoking status WIIS Smokes tobacco daily (finding) [place] Start: 1988 Sex assigned at Not on file [facility] Gender identity Not on file [facility] Medical Equipment Procedure Code Equipment Code [...] Assessment Result Facility 03-09-2025 Functional Status Independent [facility] 03-09-2025 Functional Status Standard Safet y ID band on, Call device within reach, Bed in low position, Wheels locked, Upper/Half-Length side-rails up, Phone within reach, personal items within reach, Assistive devices within reach, Bedside Cart Locked, Law enforcement present [facility] 02-16-2025 Functional Status Awake, Resting [facility] 02-16-2025 Functional Status Less than [address] [facility] 12-22-2024 Functional Status Independent [facility] 12-22-2024 Functional Status Repositions self [facility] 12-22-2024 Functional Status Maintained [facility] 12-16-2024 Functional Status [facility] 08-11-2024 Functional Status Independent [facility] 08-11-2024 Functional Status Repositions self [facility] 08-11-2024 Functional Status Maintained [facility] 08-06-2024 Functional Status Sensory Deficits None [facility] 06-09-2024 Functional Status Awake, Up ad marisa [facility] 06-09-2024 Functional Status [facility] 06-09-2024 Functional Status Maintained [facility] 04-14-2024 Functional Status Awake, Resting [facility] 04-14-2024 Functional Status Sensory Deficits None [facility] 03-03-2024 Functional Status Awake, Resting [facility] 03-03-2024 Functional Status [facility] 03-03-2024 Functional Status [facility] 01-21-2024 Functional Status Awake, Resting [facility] 01-21-2024 Functional Status Independent [facility] 01-21-2024 Functional Status Maintained [facility] 12-03-2023 Functional Status Up ad marisa [facility] 12-03-2023 Functional Status ID band on, Allergy Band on, Call device within reach, Bed in low position, Wheels locked, Upper/Half-Length side-rails up, Phone within reach, personal items within reach, Visitor at bedside, Non-Slip footwear [facility] 12-03-2023 Functional [facility]22[facility]23 Functional Status Awake [facility] 10-22-2023 Functional Status [facility] 10-22-2023 Functional [facility] 07-24-2023 Functional Status Awake [facility] 07-24-2023 Functional Status [facility] 07-24-2023 Functional Status [facility]aintained [facility] 07-16-2023 Functional Status Room check performed [facility] 07-16-2023 Functional [facility] 07-16-2023 Functional Status [facility] 07-15-2023 Functional [facility] 07-15-2023 Functional Status [facility] 07-15-2023 Functional [facility] 07-15-2023 Functional Status Dinner Percent [address] [facility] 07-15-2023 Functional Status [facility] 07-15-2023 Functional [facility] 07-14-2023 Functional Status [facility] 07-14-2023 Functional Status Maintained [facility] 07-14-2023 Functional Status [facility] 07-13-2023 Functional Status [facility] 07-13-2023 Functional Status [facility] 07-13-2023 Functional Status Independent [facility] 07-13-2023 Functional Status [facility] 07-12-2023 Functional Status [facility] 07-11-2023 Functional Status Done [facility] 07-11-2023 Functional Status [facility] 07-10-2023 Functional Status [facility] 07-10-2023 Functional Status [facility] 07-09-2023 Functional Status Beds/Devices H ospital bed, pressure reduction mattress [facility] 07-09-2023 Functional Status Personal ADL [facility] 07-09-2023 Functional Status Sensory Deficits None [facility] 05-07-2023 Functional Status Room check performed [facility] 05-07-2023 Functional Status [facility] 05-07-2023 Functional Status [facility] 05-07-2023 Functional Status [facility] 05-06-2023 Functional Status [facility] 05-05-2023 Functional Status Lunch Percent 75 [facility] 05-05-2023 Functional Status [facility] 05-04-2023 Functional Status Patient refused [facility] 05-03-2023 Functional Status Hospital bed [facility] 05-02-2023 Functional Status Done [facility] 05-02-2023 Functional Status [facility] 05-01-2023 Functional Status [facility] 04-30-2023 Functional Status Feeding Assistance Inde pendent [facility] 04-29-2023 Functional Status [facility] 04-29-2023 Functional Status NPO Status Maintained A [facility] 04-28-2023 Functional Status Sensory Deficits None A [facility] 03-05-2023 Functional Status 75 [facility] 03-05-2023 Functional Status Not done 1 [facility] 03-05-2023 Functional Status Non-Slip footw ear, Room check performed [facility] 03-04-2023 Functional Status [facility] 03-04-2023 Functional Status [facility] 03-04-2023 Functional Status Independent [facility] 03-02-2023 Functional Status [facility] 03-01-2023 Functional Status [facility] 03-01-2023 Functional Status Repositions self [facility] 03-01-2023 Functional Status [facility] 02-28-2023 Functional Status [facility] 02-28-2023 Functional Status [facility] 02-28-2023 Functional Status SCD Removed/Of f bilateral knee high [facility] 02-28-2023 Functional Status [facility] 02-27-2023 Functional Status [facility] 02-27-2023 Functional Status [facility] 02-27-2023 Functional Status [facility] 02-25-2023 Functional Status [facility] 02-24-2023 Functional Status [facility] 02-24-2023 Functional Status Living Situation Lives alone [facility] 02-24-2023 Functional Status [facility] 02-17-2023 Functional Status Ambulating in avila, Ambulating in room, Up ad marisa, Up to bathroom [facility] 02-17-2023 Functional Status Maintained [facility] 01-06-2023 Functional Status None [facility] 01-06-2023 Functional Status SCD Removed/Of f bilateral knee [facility] 01-06-2023 Functional Status [facility] 01-06-2023 Functional Status [facility] 01-06-2023 Functional Status Yes [facility] 01-06-2023 Functional Status Room check performed [facility] 01-05-2023 [facility] Status [facility] Functional Status SCD On/Re-appl ied bilateral knee [facility] 01-03-2023 Functional Status Independent [facility] 01-02-2023 Functional Status NPO Status confirmed [facility] 01-02-2023 Functional Status Living Situation Lives alone [facility] 01-01-2023 Functional Status Awake [facility] 01-01-2023 Functional Status [facility] 11-15-2022 Functional Status ID band on, Allergy Band on, Safety level maintained [facility] 11-15-2022 Functional Status NPO Status confirmed [facility] 11-15-2022 Functional Status [facility] 10-08-2022 Functional Status Yes [facility] 10-08-2022 Functional Status [facility] 10-08-2022 Functional Status [facility] 10-08-2022 Functional Status [facility] 10-07-2022 Functional Status [facility] 10-07-2022 Functional Status High Risk Safe ty Room check performed [facility] 10-07-2022 Functional Status [facility] 10-07-2022 Functional Status [facility] 10-06-2022 Functional Status [facility] 10-06-2022 [facility] 10-05-2022 Functional Status [facility] Functional Status Hospital bed [facility] 10-05-2022 Functional Status [facility] 10-03-2022 Functional Status Living Situation Lives alone [facility] 10-03-2022 Functional Status Independent 1 [facility] Functional Status Mod I 2 [facility] 10-01-2022 Functional Status [facility] 08-16-2022 Functional Status Door open, Room check performed [facility] 08-15-2022 Functional Status Demonstrates C orrect Call Light Use Yes [facility] 08-15-2022 Functional Status [facility] 08-15-2022 Functional Status [facility] 08-15-2022 Functional Status [facility] 08-14-2022 Functional Status Maintained [facility] 08-13-2022 Functional Status [facility] 08-12-2022 Functional Status [facility] 08-11-2022 Functional Status Assistive Device None A [facility] 08-10-2022 Functional Status [facility] 08-10-2022 Functional Status Independent, Setup [facility] 08-09-2022 Functional Status bilateral knee high [facility] 08-09-2022 Functional Status [facility] 08-08-2022 Functional Status Awake, Remains up in chair, Repositions self, Resting [facility] 08-08-2022 Functional Status [facility] 07-04-2022 Functional Status confirmed [facility] 07-04-2022 Functional Status [facility] 04-19-2022 Functional Status Yes [facility] 04-19-2022 Functional Status Patient refused [facility] 04-19-2022 Functional Status Room check performed [facility] 04-18-2022 Functional Status [facility] 06-16-2022 Functional Status [facility] 04-18-2022 Functional Status [facility] 04-18-2022 Functional Status [facility] 04-18-2022 Functional Status SCD Removed/Of f bilateral knee high [facility] 04-18-2022 Functional Status [facility] 04-17-2022 Functional Status [facility] 04-17-2022 Functional Status [facility] 04-17-2022 Functional Status [facility] 04-16-2022 Functional Status [facility] 04-15-2022 Functional Status [facility] 04-15-2022 Functional Status [facility] 04-15-2022 Functional Status [facility] 04-11-2022 Functional Status confirmed [facility] 04-11-2022 Functional Status Sensory Deficits None A [facility] 03-26-2022 Functional Status ID band on, Allergy Band on [facility] Functional observable [facility] Mental Status Date Assessment Result Facility 03-15-2025 Mental Status Orientation Oriented x 4 [facility] 03-09-2025 Mental Status Orientation Oriented x 4 [facility] 03-09-[address] [facility]24 [facility] Status [facility] 08-11-2024 [facility] Status [facility] x [facility] [facility] 08-11[facility]24 Mental Status Orientation Asse ssment Oriented x 4 [facility] 06-09-2024 Mental Status Oriented x 4 [facility] 04-14-2024 [facility] Status [facility] Mental Status Orientation Oriented x 4 [facility] 03-03-2024 Mental Status [facility] 03-03-2024 Mental Status [facility] 01-21-2024 Mental Status Orientation Oriented x 4 [facility] 01-21-2024 Mental Status [facility] 01-21-2024 Mental Status [facility] 12-03-2023 Mental Status Orientation Oriented x 4 [facility] 12-03-2023 Mental Status [facility] 12-03-2023 Mental Status [facility] 10-22-2023 Mental Status Oriented x 4 [facility] 07-24-2023 [facility] Status [facility] x [facility] Status Oriented x 4 [facility] 07-15-2023 Mental Status [facility] 07-15-2023 Mental Status [facility] 07-14-2023 Mental Status [facility] 05-07-2023 Mental Status Orientation Oriented x 4 [facility] 05-06-2023 Mental Status [facility] 05-06-2023 Mental Status [facility] 05-05-2023 Mental Status Orientation Asse ssment Oriented x 4 [facility] 05-05-2023 Mental Status [facility] 05-05-2023 Mental Status [facility] 03-05-2023 Mental Status Oriented x 4 [facility] 03-04-2023 Mental Status [facility] 03-04-2023 Mental Status [facility] 03-03-2023 Mental Status [facility] 02-17-2023 Mental Status Orientation Oriented x 4 [facility] 02-17-2023 Mental Status [facility] 01-06-2023 Mental Status Orientation Oriented x 4 [facility] 01-05-2023 Mental Status [facility] 01-05-2023 Mental Status [facility] 01-02-2023 Mental Status Orientation Asse ssment Oriented x 4 [facility] 01-01-2023 Mental Status [facility] 01-01-2023 Mental Status Orientation Oriented x 4 [facility] 11-15-2022 Mental Status Oriented x 4 [facility] 10-08-2022 Mental Status Orientation Oriented x 4 [facility] 10-08-2022 Mental Status [facility] 10-07-2022 Mental Status [facility] 10-06-2022 Mental Status Orientation Asse ssment Oriented x 4 [facility] 10-03-2022 Mental Status [facility] 10-02-2022 Mental Status [facility] 08-16-2022 Mental Status Oriented x 4 [facility] 08-15-2022 Mental Status [facility] 08-14-2022 Mental Status [facility] 08-11-2022 Mental Status [facility] 08-08-2022 Mental Status Orientation Oriented x 4 [facility] 07-04-2022 Mental Status Oriented x 4 [facility] 07-04-2022 Mental Status [facility] 04-19-2022 Mental Status Orientation Oriented x 4 [facility] 04-18-2022 Mental Status [facility] 04-18-2022 Mental Status [facility] 04-11-2022 Mental Status Oriented x 4 [facility] 04-11-2022 Mental Status [facility] 07-13-2021 Cognitive functi ons [id number] [facility] Clinical Notes 07-02-2021 to 05-30-2025 Note Date [...] patient had an appointment with urology at [facility] to be evaluated for possible nephrectomy and is no longer established with [facility]. She was afebrile but hypertensive on [...] her. Patient does have follow-up appointment with [facility] urology and will require further management. [...] OLE PACE MD When:Within 1-2 days Where:[address] [place] [phone]- [phone] Additional Information: Please call the office to schedule a hospital follow up appointment. Follow Up Appointments No qualifying data available. Follow Up Labs/Studies Discharge Labs No Follow-up Labs Discharge Studies No Follow-up Studies Discharge Diet No qualifying data available. Discharge Activity No qualifying data available. Digitally Signed by SKY HARRIS MD on 05/30/2025 04:50 PM [facility] 05-30-2025 Pastoral care Progress note Pastoral Care Note Entered On: 05/30/2025 15:47 EDT Performed On: 05/30/2025 11:55 EDT by Viral Villalobos Pastoral Care Spiritual Care Visit Initiated by [...] by Viral Villalobos on 05/30/2025 03:45 PM [facility] 05-30-2025 Nurse Progress note Patient insisted on leaving AMA. Tried to encourage patient to at least wait until the DrApril could come to speak with her. She refused any information and did not want to speak with DrApril before leaving. Patient was given AMA paperwork per her request. Digitally Signed by Padmini Ramirez LPN on 05/30/2025 12:51 PM [facility] 05-30-2025 Note Patient denies any issues managing Nephrostomy at home. Skin team not following. Digitally Signed by JAMAL Phipps on 05/30/2025 12:35 PM [facility] 05-29-2025 Note Date of Service 05/29/2025 Subjective Patient is a 34-year-old female with history of chronic hydronephrosis, chronic left ureteral stone status post recent nephrostomy tube placement in May 07, 2025, presenting with acute complicated UTI. Patient was recently discharged from urology service at [facility]. Currently planning to establish care with urology at [facility] on Friday. Overnight, patient is feeling [...] from midnight. Discussed with urology team at [facility]. Patient was recently discharged from the service. [...] TIFFANY ARCHULETA MD on 05/29/2025 04:15 PM [facility] 05-28-2025 Note Date of Service 05/28/2025 Subjective Patient is a 34-year-old female with history of chronic hydronephrosis, chronic left ureteral stone status post recent nephrostomy tube placement in May 07, 2025, presenting with acute complicated UTI. Patient was recently discharged from urology service at [facility]. Currently planning to establish care with urology at [facility] on Friday. Overnight, patient is feeling [...] tube replacement. Discussed with urology team at [facility]. Patient was recently discharged from the service. SCD for DVT prophylaxis Level of Care Indication Regular Floor DVT Prophylaxis Other: specify in note Maintenance IVF Indication NA / No maintenance IVF Indwelling Urinary Catheter Indication Obstruction Anticipated Timeline of Discharge 48 hours Anticipated DC Disposition Home without services Digitally Signed by TIFFANY ARCHULETA MD on 05/28/2025 01:36 PM [facility] 05-27-2025 History and physical note [facility] Hospitalist History and Physical Date [...] multiple times in the past. Urology from [facility] will no longer see the patient as she has been discharged from their service due to the patient's attitude toward staff. Patient reports that for the last several days she has had severe left sided flank pain. Has also had nausea but no vomiting. Denies fevers. Of note the patient does have an appointment with urology at [facility] on Friday afternoon to be evaluated for [...] Implantable venous access port: 04/2020 Cervical biopsy: 2020 Tumor cells, benign: 2002 Family history: Mother: Asthma; Breast cancer; COPD [...] does have an appointment with urology at [facility] Friday afternoon to be evaluated for possible nephrectomy. Anxiety/depression. Continue home medications Chronic asthma not in exacerbation Cervical cancer in remission Chronic pain syndrome follows with palliative care Prophylaxis SCD in case of procedure Code status full code Digitally Signed by OLI HERRERA MD on 05/27/2025 10:35 PM [facility] 05-27-2025 Hospital Discharg e instructions Follow Up Care 05/27/2025 12:51:48 With:OLE PACE MD Address: [address] [place] [address] [place] [address]- [phone] When:1-2 days Comments:Please call the office to schedule a hospital follow up appointment. [facility] 05-27-2025 Evaluation + Plan note Extrac raghu from: Title:Clinical Document Author:OLI HERRERA MD Date:05/27/25 [facility] Hospitalist History and Physical Date [...] multiple times in the past. Urology from [facility] will no longer see the patient as she has been discharged from their service due to the patient's attitude toward staff. Patient reports that for the last several days she has had severe left sided flank pain. Has also had nausea but no vomiting. Denies fevers. Of note the patient does have an appointment with urology at [facility] on Friday afternoon to be evaluated for [...] Cervical biopsy: 2019 Tumor cells, benign: 2002 Family history: Mother: Asthma; Breast cancer; COPD [...] does have an appointment with urology at [facility] Friday afternoon to be evaluated for possible nephrectomy. Anxiety/depression. Continue home medications Chronic asthma not in exacerbation Cervical cancer in remission Chronic pain syndrome follows with palliative care Prophylaxis SCD in case of procedure Code status full code Future Appointments Appointment Date:06/08/2025 11:30:00 AM Scheduled Provider:OLE PACE MD Location:[facility] Palliative Appointment Type:PALL OV Follow Up Appointment Date:06/29/2025 08:00:00 AM Scheduled Provider: Location:IR Appointment Type:IR Nephrostomy Exchange Future Scheduled Tests Laboratory* hCG, quantitative (AH/AM Only) 11/15/24 Radiology* IR Nephrostomy Exchange 06/29/25 * IR Nephrostomy Exchange 12/30/24 * CT Renal 03/08/25 * NM Kidney Diuretic 03/08/25 * NM Kidney Diuretic 04/12/25 [facility] 07-24-2025 Emergency department Discharge summary Discharge Instructions Thank you for allowing [facility] to assist you with your healthcare needs. [...] to receive it can visit one of [facility] vaccine clinics. There are many vaccine clinic locations within the [facility]. For locations and available times, please visit [email or web address]/. It is important to note that some COVID mobile vaccine clinics are held outdoors and may be canceled in rainy or stormy conditions. To learn more about pediatric vaccinations (ages 5-11), we invite you to visit the [facility] webpage. https://www.[facility].org/pages/0815-Amemy-Araamjxhudu-Rdwpplrtvy-Thysz-Xix stions.htmlTo learn more about the COVID-19 vaccine, we invite you to visit the CDC website for a list of frequently asked questions. https://www.cdc.gov/coronavirus/2019-ncov/vaccines/faq.html [facility] Patient Portal Access Instructions: Stay connected with your healthcare team and access your personal medical information anytime with the [employer] Patient Portal. If you would like a full copy of your medical records please contact the [facility] Medical Records Department Friday through Friday between 8a.m. and 4:30p.m. Please follow the directions below to access the portal: 1.Access the email account you provided upon registration to the hospital.2.Look for an invitation email from [facility].3.Open the email and access the invitation link: Accept Invitation to [facility]4.Fill in the required quintero to create your account. Sign into www.[employer] with your username and password that you [...] you will allow to register on the [facility] Patient Portal for access to your information. You can also access the [facility] Patient Portal on the [employer] joya. Simply click on Health Records under [employer] and then click on the [employer] logo. HOW TO SAFELY DISPOSE OF PRESCRIPTION [...] Call your local pharmacy or go to [email or web address] to find one close to you.3.Make use of household items: Use cat litter or old coffee grounds to dispose medications if other options arenot available. Mix your drugs with these household products, seal them in an airtight container andthrow it into the garbage. Call [facility]: [phone] to be sure your drugs can be [...] aware that I should contact my doctor. 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 Spoke to patient, appt scheduled 05/26/[address] Fonseca in [place]07-15-2025 Telephone encounter Note* Telephone Encounter - Lida Warren - 05/17/2025 1:40 PM EDT Referral received from [facility] to discuss nephrectomy for chronic hydronephrosis and obstructive uropathy. Spoke to patient, appt scheduled 05/26/[address] Raymundo Coburn. [id number] Miscellaneous Notes* Telephone Encounter - Lida Warren - 05/17/2025 1:40 PM EDT Referral received from [facility] to discuss nephrectomy for chronic hydronephrosis and obstructive uropathy. Spoke to patient, appt scheduled 05/26/[address] Fonseca in [place]. documented in this [facility]07-07-2025 Hospital Discharge instructions Patient Education 05/09/2025 [...] and water are not available, use alcohol-based soldering machine operator automatic to keep from spreading the infection to [...] Yellow color of the eyes or skin 4717-4[address] The [employer] [place] [address]. All rights reserved. This information is not intended as a substitute for professional medical care. Always follow yourhealthcare professional's instructions. 05/09/2025 04:54:31 Abdominal Pain Abdominal [...] foods again, start with small amounts of kmvi-yi-mofwtq, low- fat foods. These include apple sauce, [...] increase stomach acid. Don't use aspirin or yush-gap-dcqvshj pain and fever medicines, if possible. This includes nonsteroidal anti-inflammatory drugs (NSAIDs). Lose excess weight. Finish eating at least 2 hours before you go to bed or lie down. Raise the head of your bed. 8849-55[address] [employer]. [address] [place] [address]. All rights reserved. This information is not intended as a substitute for professional medical care. Always follow yourhealthcare professional's instructions. Follow Up Care 05/08/2025 23:40:08 With:OLE PACE MD Address: [address] [place] [phone]- [phone] When:2-4 days [facility] 07-07-2025 Emergency department Discharge summary Discharge Instructions Thank you for allowing [facility] to assist you with your healthcare needs. The following is importantdischarge information regarding your hospital visit. Diagnosis from Today's Visit Cervical cancer Lt flank pain Vomiting What to Do Next Instructions from Your Care Team No qualifying data available. Post Acute Orders No qualifying data available. You Need to Schedule the Following Appointments Follow Up with OLE PACE MD When:Within 2-4 days Where:[address] [place] [phone]- [phone] Allergies Haldol Tongue swelling Oranges Tongue swelling, [...] and water are not available, use alcohol-based soldering machine operator automatic to keep from spreading the infection to [...] Yellow color of the eyes or skin 4375-4659 [employer]. [address] [place] [address]. All rights reserved. This information is not [...] foods again, start with small amounts of uogw-rw-cpjchx, low- fat foods. These include apple sauce, [...] increase stomach acid. Don't use aspirin or owpd-muy-njnqyuo pain and fever medicines, if possible. This includes nonsteroidal anti-inflammatory drugs (NSAIDs). Lose excess weight. Finish eating at least 2 hours before you go to bed or lie down. Raise the head of your bed. 4750-6417 [employer]. [address] [place] [address]. All rights reserved. This information is not intended as a substitute for professional medical care. Always follow yourhealthcare professional's instructions. Additional Information VACCINATE! IT SAVES LIVES! Members of the community who have not yet received the COVID-19 vaccine and would like to receive it can visit one of [facility] vaccine clinics. There are many vaccine clinic locations within the [facility]. For locations and available times, please visit www.[email or web address]/. It is important to note that some COVID mobile vaccine clinics are held outdoors and may be canceled in rainy or stormy conditions. To learn more about pediatric vaccinations (ages 5-11), we invite you to visit the [facility] webpage. https://www.[facility].org/pages/1914-Kkbtx-Cxorfprrhme-Hcnkbzynal-Zhmtb-Aif stions.htmlTo learn more about the COVID-19 vaccine, we invite you to visit the CDC website for a list of frequently asked questions. https://www.cdc.gov/coronavirus/2019-ncov/vaccines/faq.html [facility] Patient Portal Access Instructions: Stay connected with your healthcare team and access your personal medical information anytime with the [employer] Patient Portal. If you would like a full copy of your medical records please contact the [facility] Medical Records Department Friday through Friday between 8a.m. and 4:30p.m. Please follow the directions below to access the portal: 1.Access the email account you provided upon registration to the [facility].2.Look for an invitation email from [facility].3.Open the email and access the invitation link: Accept Invitation to [facility] [employer]4.Fill in the required quintero to create your account. Sign into www.[employer] with your username and password that you [...] you will allow to register on the [facility] [facility] Patient Portal for access to your information. You can also access the [facility] [facility] Patient Portal on the G-CON joya. Simply click on Health Records under [employer] and then click on the [employer] logo. HOW TO SAFELY DISPOSE OF PRESCRIPTION [...] Call your local pharmacy or go to [email or web address] to find one close to you.3.Make use of household items: Use cat litter or old coffee grounds to dispose medications if other options arenot available. Mix your drugs with these household products, seal them in an airtight container andthrow it into the garbage. Call [facility]: [phone] to be sure your drugs can be [...] aware that I should contact my doctor. Patient/Wire Hanger Signature: Date/Time: Relationship to Patient: Witness Name/Signature: Date/Time: [facility] [id number] Note* Exam Date Time Procedure Performing Provider Status 05/09/25 1:[address] Abdomen/Pelvis w/o Contrast JUVENTINO GRECO MD; Auth (Verified) [id number] ORIGINAL EXAMINATION: CT OF THE ABDOMEN AND [...] 05/09/2025 1:46:35 AM Ordering Provider: JASKARAN MEDRANO [id number] Discharge summary Date of Service 05/07/2025 Discharge [...] tube via previouslyestablished tract with new 12 Guamanian nephrostomy catheter tip curled in theleft renal [...] PACE MD When:Within 1-2 days Where:[address] [place] [address]- [phone] Additional Information: Please call the office to [...] by TERRY RAMOS on 05/07/2025 12:09 PM [id number] Discharge summary Date of Service 05/07/2025 Discharge [...] tube via previouslyestablished tract with new 12 Guamanian nephrostomy catheter tip curled in theleft renal [...] PACE MD When:Within 1-2 days Where:[address] [place] [address]- [phone] Additional Information: Please call the office to [...] by TERRY RAMOS on 05/07/2025 12:09 PM [facility] [id number] Hospital Discharge instructions Patient Education 05/07/2025 09:18:13 Radiology- Nephrostomy/Nephroureteral Tube Exchange 12/26/2022(CUSTOM) [facility] Nephrostomy/Nephroureteral Tube Exchange Discharge Instructions Interventional Radiology [facility] [address] [place], [place] [address] The procedure that you had done today [...] the feeling of the need to urinate. Ioqj-exl-wqlcslt pain medication should be used for pain [...] gauze. Supplies may be obtained at: [facility] [address] [facility] [address] [facility] Any questions or concerns, please contact your physician or Interventional Radiology at [phone] from 8-4:30pm Friday-Friday. If you do not have a follow up appointment scheduled at the time of discharge, please call Interventional Radiology at the number listed above. Follow Up Care 05/04/2025 18:16:37 With:OLE PACE MD Address: [address] [place] [phone] When:1-2 days Comments:Please call the office to schedule a hospital follow up appointment. [facility] 07-05-2025 Note Discharge Instructions Thank you for allowing [facility] to assist you with your healthcare needs. [...] 05/11/2025 11:00 AM EDT OLE PACE MD [facility] Confirmed SO OV Follow Up 05/18/2025 11:20 AM EDT [facility] [address] [place] [phone] Confirmed IR Nephrostomy Exchange 05/19/2025 01:00 PM EDT IR Confirmed Follow Up Appointments Follow Up with OLE PACE MD When:Within 1-2 days Where:[address] [facility] [place] [phone] Additional Information: Please call the office to [...] medication providers or retail pharmacies. Education Materials CARMEL Nephrostomy/Nephroureteral Tube Exchange Discharge Instructions Interventional Radiology [facility] [address] [address] The procedure that you had done today [...] the feeling of the need to urinate. Sulu-cvz-xhofvly pain medication should be used for pain [...] the gauze. Supplies may be obtained at: [facility] [address] [facility] [address] [facility] Any questions or concerns, please contact your physician or Interventional Radiology at [phone] from 8-4:30pm Friday-Friday. If you do not have a follow up appointment scheduled at the time of discharge, please call Interventional Radiology at the number listed above. Additional Information VACCINATE! IT SAVES LIVES! Members of the community who have not yet received the COVID-19 vaccine and would like to receive it can visit one of [facility] vaccine clinics. There are many vaccine clinic locations within the [facility]. For locations and available times, please visit [email or web address]/. It is important to note that some COVID mobile vaccine clinics are held outdoors and may be canceled in rainy or stormy conditions. To learn more about pediatric vaccinations (ages 5-11), we invite you to visit the [employer] [facility] webpage. https://www.akronDocOnYous.org/pages/6741-Rdgqx-Aqhkpymthzv-Somhafjoct-Dvppl-Pnr stions.htmlTo learn more about the COVID-19 vaccine, we invite you to visit the CDC website for a list of frequently asked questions.https://www.cdc.gov/coronavirus/2019-ncov/vaccines/faq.html [facility] Patient Portal Access Instructions: Stay connected with your healthcare team and access your personal medical information anytime with the [facility] Patient Portal. Please follow the directions below to create your [facility] account: 1.Access the email account you provided upon registration to the hospital/physician office.2.Look for an invitation email from [facility].3.Open the email and access the invitation link: AcceptInvitation to [facility].4.Fill in the required quintero to create your account. To access your account, visit [employer]/AteoOneChart. Click the blue button labeled Access Patient [...] who you will allowto register on the [facility] Patient Portal for access to your information. You can also access the [facility] Patient Portal on the Ateo Anywhere joya. Simply click on Patient Portal and then log into your account. If you would like to receive a full copy of your medical records, please contact the [facility] Medical Records Department by calling [phone], Friday through Friday between 8 a.m. and [...] Call your local pharmacy or go to http://ShareMeister/1X7Bj2t to find one close to you.3.Make use of household items: Use cat litter or old coffee grounds to dispose medications if other options arenot available. Mix your drugs with these household products, seal them in an airtight container andthrow it into the garbage. Call [facility]: [phone] to be sure your drugs can be [...] been reviewed and explained to me and I,ANTONELLA LALY Austen understand my current condition and have read and understand these discharge instructions. I have received a written copy of the plan/instructions. If I have questions, I am aware that I should contact my doctor. Patient/Wire Hanger Signature: Date/Time: Relationship to Patient: Witness Name/Signature: Date/Time: [facility]Ewnnxmpc21-06-2456 Note Date of Service 05/06/2025 Chief Complaint [...] by TERRY RAMOS on 05/06/2025 01:01 PM [facility] HospitalGdopzdgr54-40-0977 Note* Exam Date Time Procedure Performing Provider Status 05/05/25 5:36 PM IR Nephrostomy Tube CLOTILDE RANDHAWA; Rhett (Verified) [id number] ORIGINAL PROCEDURE: INTRODUCTION-12 Guamanian left NEPHRO TUBE via previously established tract [...] wire recanalization of previously established tract, 5 Guamanian catheter was advanced and antegrade nephrostogram was performed. Catheter was exchanged over stiff guidewire for new 12 Guamanian nephrostomy catheter. Tip curled in left renal pelvis. Antegrade nephrostogram performed to confirm satisfactory tube position. Catheter affixed to the patient's skin. External drainage bag and dressing applied. Patient tolerated procedure well. No complication suggested. CONTRAST: 8 mL Isovue 300 SEDATION: Moderate sedation was ordered and supervised by the attending with physician lksl-ju-ysxx monitoring. Medications were provided and recorded by Radiology nurses. See radiology nursing notes for further discussion. FLUOROSCOPY DOSE AND TYPE: Radiation Exposure Index: Kerma 6.68 mGy, 1.5 minutes fluoroscopy time for procedure DESCRIPTION OF PROCEDURE: Informed consent was obtained after a detailed explanation of the procedure including risks, benefits, and alternatives. Felt protocol was observed. Sterile gowns, masks, hats and gloves utilized for maximal sterile barrier. As above in technique section FINDINGS: Intraprocedural images demonstrate satisfactory caval is a diop of previously established tract into the left renal collecting system. Antegrade nephrostogram demonstrates mild left hydronephrosis. Postprocedure images demonstrate new 12 Guamanian left nephrostomy tube tip curled in the left renal pelvis. No complication suggested. IMPRESSION: Replacement of previously dislodged left nephrostomy tube via previously established tract with new 12 Guamanian nephrostomy catheter tip curled in the left [...] 05/05/2025 5:58:35 PM Ordering Provider: GUCCI MACKEY [facility] [id number] Note IR Procedure Record Summary Primary Physician: CLOTILDE RANDHAWA DO Finalized Date/Time: 05/05/25 17:33:43 Pt. Name: LALY NAVAS/Sex: 1990 Female Med Rec #: [id number] Physician: RHIANNON ARTEAGA MD Financial #: [id number] Pt. Type: O Room/Bed: 72/A Admit/Disch: 05/04/25 18:15:33 - Institution: Allergies identified [...] Fairchild Megan R Rad Fierstos, Megan R Rad Tech 05/05/25 17:32:47 Tech 05/05/25 17:32:47 Tech 05/05/25 17:32:47 Entry 4 Case Attendee Sam Sim Role Performed Scrub Technologist Details Time In 05/05/25 16:50:00 Time Out 05/05/25 17:31:00 Procedure/Preference IR Nephrostomy Tube (SN) Card Last Modified By: Padmini Fairchild Tech 05/05/25 17:32:47 Radiology Procedures- IR Entry 1 Procedure/Preference IR Nephrostomy Tube (SN) Actual Procedure ir nephrostomy tube Card Primary Procedure Yes Primary Surgeon CLOTILDE RANDHAWA DO Anesthesia/Sedation IV Sedation, Local Type Additional Procedure Times Start 05/05/25 17:13:00 Stop 05/05/25 17:21:00 Specialty Service SN Radiology Procedure EBL 0 mL Last Modified By: Padmini Fairchild Tech 05/05/25 17:32:50 Radiology Procedure Details - IR [...] for suture Last Modified By: Padmini Fairchild [employer] 05/05/25 17:29:05 General Case Data - IR Entry 1 Case Information Room AH IR 17 Case Level IR Level 3 Wound Class None Specialty SN Radiology Procedure ASA Class None Diagnosis Preop Diagnosis left neph tube fell out Postop Same As Preop Yes Postop Diagnosis left neph tube fell out Last Modified By: Padmini Fairchild [employer] 05/05/25 17:33:07 Medication Administration- IR Entry 1 [...] Back from: Last Modified By: Padmini Fairchild Conferensum Padmini Fairchild [employer] 05/05/25 17:17:38 Tech 05/05/25 17:17:38 Procedure Case Times- IR Entry 1 Patient In Procedure Patient In OR 05/05/25 16:50:00 Patient Out of OR 05/05/25 17:31:00 Procedure Start/Stop Procedure Start Time 05/05/25 17:13:00 Procedure Stop Time 05/05/25 17:21:00 Last Modified By: Padmini Fairchild R [employer] 05/05/25 17:29:18 Immediate Post OP Note - IR Entry 1 Immediate Post Yes Findings Successful left neph Procedure Note tube reinsertion displayed for Physician to review Closure Technique Closure Technique Other than Primary Last Modified By: Padmini Fairchild Picking Crew Supervisor 05/05/25 17:18:38 Immediate Post OP Note - IR Signed By: CLOTILDE RANDHAWA DO 05/05/25 17:21 Allergy Information- IR Entry 1 Allergies Reviewed? Yes Allergies Reviewed Medical Record With Last Modified By: Padmini Fairchild Picking Crew Supervisor 05/05/25 17:11:17 Radiology Protocols/Time Out- IR Entry [...] and RN, Sam Sim results are properly Gurinder Edwards Megan labeled and R Picking Crew Supervisor appropriately displayed, Alcohol based prep dry Instrument Sterility Team Members Sam Sim Verifying Sterility Procedure IR Nephrostomy Tube (SN) Last Modified By: Padmini Fairchild Picking Crew Supervisor 05/05/25 17:16:02 Skin Prep- IR Entry 1 Procedure IR Nephrostomy Tube (SN) Skin Prep Prep Area Flank Side Left By Sam Sim Prep Agents Chloraprep Hair Removal Method N/A Last Modified By: Padmini Fairchild Picking Crew Supervisor 05/05/25 17:18:04 Patient Positioning- IR Entry 1 Procedure IR Nephrostomy Tube (SN) Body Position OP Prone Feet Uncrossed? n/a Pressure Points n/a Checked Last Modified By: Padmini Fairchild Picking Crew Supervisor 05/05/25 17:18:13 Radiology Procedure Plan - IR [...] Radiology - Action Plan Outcomes Met? Yes Exhibit Designer Lyla Saucedo RN Procedure Plan Last Modified By: Padmini Fairchild 05/05/25 17:18:59 Case Comments Finalized By: Padmini Fairchild Document Signatures Signed By: Padmini Fairchild 05/05/25 17:33 [facility] [id number] Procedure note Date of Service INTERVENTIONAL RADIOLOGY POST PROCEDURE NOTE Pre-Procedure Diagnosis: [accidental removal left nephrostomy tube ] Post Procedure Diagnosis: Same. Broke Beater Operator: Dr. Clotilde Randhawa DO Procedure: [recanalization of [...] CLOTILDE RANDHAWA DO on 05/05/2025 05:26 PM [facility] HospitalZwkhlyri08-13-0815 Evaluation + Plan noteExtracted from: Title:History and [...] Date:05/11/2025 11:00:00 AM Scheduled Provider:OLE PACE MD Location:[facility] Appointment Type:PALL OV Follow Up Appointment Date:05/18/2025 11:20:00 AM Scheduled Provider: Location[facility] Appointment Type:SO OV Follow Up Appointment Date:05/19/2025 01:00:00 PM Scheduled Provider: Location:IR Appointment Type:IR Nephrostomy Exchange Future Scheduled Tests Laboratory* hCG, quantitative (AH/AM Only) 11/15/24 Radiology* IR Nephrostomy Exchange 05/19/25 * IR Nephrostomy Exchange 12/30/24 * CT Renal 03/08/25 * NM Kidney Diuretic 03/08/25 * NM Kidney Diuretic 04/12/25 [facility] 07-03-2025 History and physical note Date of [...] attention are all normal. Lab Results 05/04 WBC: 7.5 10^3/mcL (05/04/25:38:00) RBC: 3.73 10^6/mcL Low (05/04/25::00) Hgb: 12.6 G/dL (05/04/25:38:00) Hct: 35.2 % (05/04/25:38:00) MCV: 94.3 fL (05/04/25:38:00) MCH: 33.7 pg High (05/04/25:38:00) MCHC: 35.7 G/dL (05/04/25:38:00) RDW: 15.4 % (05/04/25:38:00) Platelet: 336 10^3/mcL (05/04/25:38:00) MPV: 6.6 fL (05/04/25:38:00) Monocyte Distribution Width: 19.63 (05/04/25:38:00) Neutrophil %: 61.8 % (05/04/25:38:00) Lymphocyte %: 28.8 % (05/04/25:38:00) Monocyte %: 7.4 % (05/04/25:38:00) Eosinophil %: 1.2 % (05/04/25:38:00) Basophil %: 0.8 % (05/04/25:38:00) Neutrophil, Absolute: 4.6 10^3/mcL (05/04/25 21:38:00) Lymphocyte, Absolute: 2.2 10^3/mcL (05/04/25:38:00) Monocyte, Absolute: 0.6 10^3/mcL (05/04/25 21:38:00) Eosinophil, Absolute: 0.1 10^3/mcL (05/04/25 21:38:00) Basophil, Absolute: 0.1 10^3/mcL (05/04/25 21:38:00) UA Specimen Type: Void (05/04/25:38:00) UA Color: Yellow (05/04/25:38:00) UA Appear: Clear (05/04/25:38:00) UA Spec Grav: 1.010 (05/04/25 21:38:00) UA Glucose: Negative. (05/04/25 21:38:00) UA Bili: Negative. (05/04/25:38:00) UA Ketones: Negative.1 (05/04/25 21:38:00) UA Blood: Negative. (05/04/25:38:00) UA pH: 8.0 (05/04/25:38:00) UA Protein: Negative.1 (05/04/25:38:00) UA Urobilinogen: 0.2 (05/04/25:38:00) UA Nitrite: Negative. (05/04/25 21:38:00) UA Leuk Est: Negative. (05/04/25:38:00) UA RBC: 3-5 Abnormal (05/03/25 10:09:00) UA WBC: 25-50 Abnormal (05/03/25 10:09:00) UA Squam Epithelial: 0-2 (05/03/25 10:09:00) UA Amorphus: 2+ (05/03/25 10:09:00) UA Bacteria: 3+ Abnormal (05/03/25 10:09:00) Urine POC: Negative (05/05/25 00:44:00) Glucose Level: 91 mg/dL (05/04/25:38:00) Sodium Level: 142 mEq/L (05/04/25 21:38:00) Potassium Level: 4.2 mEq/L (05/04/25:38:00) Chloride: 109 mEq/L (05/04/25:38:00) CO2: 25 mEq/L (05/04/25:38:00) Electrolyte Balance: 8 mEq/L (05/04/25 21:38:00) BUN: <5.0 Low (05/04/25 21:38:00) Creatinine Lvl (s): 0.92 mg/dL (05/04/25 21:38:00) Estimated Glomerular Filtration Rate: 83 ml/min/1.73sqm (05/04/25 21:38:00) BUN/Creatinine Ratio: Unable to Calculate (05/04/25:38:00) Calcium [...] RHIANNON ARTEAGA MD on 05/05/2025 01:11 AM [facility] HospitalScoowoem24-72-6433 Hospital Discharge instructions Patient Education 05/03/2025 12:19:03 [...] may use Herbs, vitamins, and other supplements Yymf-hrk-rqgnxrm medicines that don t need a prescription, [...] or if you develop fever or chills. [phone] The [employer]. [address] [place] [address], [place] [address]. All rights reserved. This information is not intended as a substitute for professional medical care. Always follow [facility] professional's instructions. Follow Up Care 05/03/2025 04:50:47 With:Call our interventional radiology department to schedule an outpatient nephrostomy exchange if you desire. Address:Unknown When:2-4 days With:You may follow-up with [facility] for nephrostomy exchange since that is where you told our urology practice that is where you will seek urolog care Address:Unknown When:2-4 days With:OLE PACE MD Address: [address] [place] [phone] When:2-4 days [facility] 07-01-2025 Emergency department Discharge summary Discharge Instructions Thank you for allowing [facility] to assist you with your healthcare needs. The following is importantdischarge information regarding your hospital visit. Diagnosis from Today's Visit Left flank pain What to Do Next Instructions from Your Care Team You are stable to discharge home. You would previously told our urology group that you would follow-up with [facility] in the future for urologic care. He may follow-up with [facility] orcall our interventional radiology department to schedule [...] Follow Up with You may follow-up with [facility] for nephrostomy exchange since that is whereyou told our urology practice that is where you will seek urolog care When:Within 2-4 days Follow Up with OLE PACE MD When:Within 2-4 days Where:[address] [place] [phone] Allergies Haldol Tongue swelling Oranges Tongue swelling, [...] may use Herbs, vitamins, and other supplements Gvgw-ppe-kiggttf medicines that don t need a prescription, [...] or if you develop fever or chills. [phone] [employer]. [address] [place] [address], [place] [address]. All rights reserved. This information is not intended as a substitute for professional medical care. Always follow yourhealthcare professional's instructions. Additional Information VACCINATE! IT SAVES LIVES! Members of the community who have not yet received the COVID-19 vaccine and would like to receive it can visit one of [facility] vaccine clinics. There are many vaccine clinic locations within the [facility]. For locations and available times, please visit www.gettheshot.coronavirus.[place].gov/. It is important to note that some COVID mobile vaccine clinics are held outdoors and may be canceled in rainy or stormy conditions. To learn more about pediatric vaccinations (ages 5-11), we invite you to visit the [employer] [facility] webpage. https://www.WindGen Power Productss.org/pages/9800-Uuazf-Yklbybmdvkg-Krqfyavixz-Yhnig-Tid stions.htmlTo learn more about the COVID-19 vaccine, we invite you to visit the CDC website for a list of frequently asked questions. https://www.cdc.gov/coronavirus/2019-ncov/vaccines/faq.html [facility] [employer] Patient Portal Access Instructions: Stay connected with your healthcare team and access your personal medical information anytime with the [employer] Patient Portal. If you would like a full copy of your medical records please contact the [facility] Medical Records Department Friday through Friday between 8a.m. and 4:30p.m. Please follow the directions below to access the portal: 1.Access the email account you provided upon registration to the hospital.2.Look for an invitation email from [facility].3.Open the email and access the invitation link: Accept Invitation to [facility]4.Fill in the required quintero to create your account. Sign into www.Spreadtrum Communications with your username and password that you [...] you will allow to register on the [employer] Patient Portal for access to your information. You can also access the [employer] Patient Portal on the G-CON joya. Simply click on Health Records under [employer] and then click on the [employer] logo. [...] Call your local pharmacy or go to http://AmpliPhi Biosciences.Segmint/0T8Eg3p to find one close to you.3.Make use of household items: Use cat litter or old coffee grounds to dispose medications if other options arenot available. Mix your drugs with these household products, seal them in an airtight container andthrow it into the garbage. Call [facility]: [phone] to be sure your drugs can be [...] been reviewed and explained to me and ANTONELLA Smith RACHAEL L understand my current condition and have read and understand these discharge instructions. I have received a written copy of the plan/instructions. If I have questions, I am aware that I should contact my doctor. Patient/Wire Hanger Signature: Date/Time: Relationship to Patient: Witness Name/Signature: Date/Time: [facility] HospitalPdneaiif48-59-9322 Note* Exam Date Time Procedure Performing Provider Status 05/03/25 10:[address] Abdomen/Pelvis w/o Contrast CLOTILDE BENSON MD; Auth (Verified) [id number] ORIGINAL EXAMINATION: CT OF THE ABDOMEN AND [...] CT W/IV CONTRAST AT 4AM TODAY IN [place] NEPHROSTOMY LEFT SINCE 2019 CERVICAL CA W/ [...] 05/03/2025 11:34:06 AM Ordering Provider: CLOTILDE VILLA [facility] HospitalEioxmxxd02-33-8420 Discharge summary [facility] Medical Records Department [address] [place] [address] Emergency Department Summary 04/09/25 MR#: [id number] Acct: [id number] Name: LALY NAVAS Rep #:[id number] : 1990 34 From: Jatin Garcia MD [...] has been doing but the pain is xgf-si-ygrjxvu and she is feeling very nauseated and does not want to waste her pain management prescription by vomiting it up. She denies any fevers or chills. No dysuria orhematuria. She has been on antibiotics for several weeks, currently on Bactrim,and states that she was admitted to [facility] where her oncologist and urologist are, she [...] has known about those issues for years. [facility] Medical History Nephrostomy present Kidney failure Kidney [...] % (Auto) 54.6 Lymph % (Auto) 32.0 [place] % (Auto) 8.9 Eos % (Auto) 3.2 [...] Clarity Clear Urine pH 6.0 Ur Specific Harbeson 1.010 Urine Protein Negative Urine Glucose (UA) [...] Staff - Active Staff] - Print Language: Samoan Disposition Disposition: Home, Self Care What to do if you have Problems For any increased pain, shortness of breath, bleeding, nausea or vomiting, chestpain, or any unexpected problems, contact your Primary Care Provider. Call [facility] ([phone]) or report tothe closest Emergency Room. Call 911 if necessary. 04/09/25 0244 Cosigner Signature (if applicable): CC: OLE PACE ~ Signed [place]06-05-2025 Discharge summary Date of Service 04/07/25 Discharge [...] PACE MD When:Within 2-4 days Where:[address] [place] [address]- [phone] Follow Up Appointments No qualifying data available. [...] FRED CARBAJAL MD on 04/07/2025 05:39 PM [facility] HospitalQnavyqnh71-93-6816 Urology Progress note Date of Service 04/07/2025 I went to the patient's room to discuss her situation along with my nurse practitioner, Amberly Haque. I told the patient that I am no longer comfortable doing her surgery since she was threatening me and making demands. The patient stated that [facility] has been neglecting her care. The patient then proceeded to remove her IV. The patient stated that she will be going to see [facility] at the [facility]. On multiple occasions the patient [...] GONZALEZ SANDERS MD on 04/07/2025 01:05 PM [facility] HospitalCkuwcycd80-31-3401 Note Reason for Consultation Admission From: Home No qualifying data available. Skin Team Findings Vitals and Measurements T: 36.6 C (Oral) TMIN: 36.5 C (Oral) TMAX: 36.8 C (Oral) HR: 67 RR: 20 BP: 143/94 SpO2: 96% HT: 165.1 cm WT: 51.8 kg BMI: 19 Pressure Area Details No pressure injuries. Patient has an established nephrostomy. Orders placed in to [facility]. Assessments and Recommendations ------Assessments------ Current Skin/Wound Interventions: [...] Paola Chiang RN on 04/07/2025 11:27 AM [facility] HospitalOxpjsuxh09-41-2069 Urology Consult note Date of Service 04/07/2025 [...] and have her follow up at the [facility]. I strongly advised that she should remain compliant with our recommendations. Apparently, her boyfriend then called the office and raised his voice at my nurse and the patient called the district or district office director and said shewants me to do her [...] GONZALEZ SANDERS MD on 04/07/2025 09:46 AM [facility] HospitalVyefaoad06-87-0923 Palliative care Progress note Palliative care consulted [...] SANTINO SAWYER MD on 04/07/2025 09:25 AM [facility] HospitalNsnvfcys46-00-4828 History and physical note Date of Service [...] Tumor cells, benign: 2002 Medications Home Medications (6) Active Ativan 1 [...] BHUPENDRA GALVEZ DO on 04/06/2025 11:09 PM [facility] HospitalOaujrnog46-99-7648 Note* Exam Date Time Procedure Performing Provider Status 04/06/25 4:45 PM US Renal SCOOBY JOSE MD; Auth (Verified) [id number] ORIGINAL EXAMINATION: ULTRASOUND OF THE KIDNEYS 04/06/2025 [...] Date: 04/06/2025 4:58:12 PM Ordering Provider: DAO COBURN [facility] HospitalVkqkrkkw43-02-5053 Note* Exam Date Time Procedure Performing Provider Status 04/06/25 3:46 PM XR Abdomen AP TRICIA ADAMSON DO; Auth (Verified) [id number] ORIGINAL EXAMINATION: ONE SUPINE XRAY VIEW(S) OF [...] Date: 04/06/2025 4:01:45 PM Ordering Provider: DAO COBURN [facility] Hospital Discharge instructions Follow Up Care 04/06/2025 13:04:40 With:OLE PACE MD Address: [address] [place] [address] [place] [address]- [phone] When:2-4 days [facility] 06-04-2025 Evaluation + Plan noteExtracted from: Title:History [...] Exchange Appointment Date:05/18/2025 11:20:00 AM Scheduled Provider: Location:[facility] Appointment Type:SO OV Follow Up Future Scheduled Tests Laboratory* hCG, quantitative (AH/AM Only) 11/15/24 Radiology* IR Nephrostomy Exchange 04/13/25 * IR Nephrostomy Exchange 12/30/24 * CT Renal 03/08/25 * NM Kidney Diuretic 03/08/25 * NM Kidney Diuretic 04/12/25 [facility] 06-03-2025 Discharge summary Date of Service 04/05/2025 Discharge Diagnosis Acute on chronic left-sided abdominal and flank pain Acute urinary traction Chronic left nephrostomy tube Anxiety/depression Acute on chronic cancer-related pain Hospital Course Patient is a 34-year-old female with PMHx Cervical cancer in remission, 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 She presented to [facility] on 04/04/2025 with complaints of left flank [...] by LIZY PHAM on 04/05/2025 05:25 PM [facility]Iusmpttp95-06-2153 Palliative care Progress note Palliative care was [...] SANTINO SAWYER MD on 04/05/2025 01:49 PM [facility]Kgntclky05-62-1398 Urology Consult note Date of Service 04/05/25 [...] 15:44 EDT Digitally Signed by AURA BOWER APRN-TECHNICAL PROGRAM MANAGER on 04/05/2025 11:56 AM [facility]Ivjstlwr49-08-1823 Note Reason for Consultation Admission From: Home [...] Paola Chiang RN on 04/05/2025 11:38 AM [id number] History and physical note Date of Service [...] care was recommending that she go to [facility] urology for consideration of reconstructive surgery or [...] Tumor cells, benign: 2001 Medications Home Medications (7) Active albuterol MDI [...] RHIANNON ARTEAGA MD on 04/04/2025 09:33 PM [facility] HospitalBwigfetm49-61-7763 Note* Exam Date Time Procedure Performing Provider Status 04/04/25 7:18 PM EKG (ED) - NITA BAUGH MD; A [facility] (Verified) ECG Final Report SINUS RHYTHM PROBABLE LEFT ATRIAL ENLARGEMENT This EKG was read and contributed directly to the care of the patient Electronic Signature: NITA RUGGIERO MD 04/04/2025 19:44:44 [id number] Note* Exam Date Time Procedure Performing Provider Status 04/04/25 3:[address] Abdomen/Pelvis w/o Contrast Isaías BENSON MD; Auth (Verified) [id number] ORIGINAL EXAMINATION: CT OF THE ABDOMEN AND [...] Date: 04/04/2025 4:10:13 PM Ordering Provider: [facility] Evaluation + Plan noteExtracted from: Title:History and [...] care was recommending that she go to [facility] urology for consideration of reconstructive surgery or [...] Exchange Appointment Date:05/18/2025 11:20:00 AM Scheduled Provider: Location:[facility] Appointment Type:SO OV Follow Up Future Scheduled Tests Laboratory* hCG, quantitative (AH/AM Only) 11/15/24 Radiology* IR Nephrostomy Exchange 04/13/25 * IR Nephrostomy Exchange 12/30/24 * CT Renal 03/08/25 * NM Kidney Diuretic 03/08/25 * NM Kidney Diuretic 04/11/25 [facility] 05-13-2025 Hospital Discharge instructions Patient Education 03/15/2025 [...] worse Numbness or weakness in a leg [phone] [employer]. [address] [place] [address], [place] [address]. All rights reserved. This information is not intended as a substitute for professional medical care. Always follow yourhealthcare professional's instructions. Follow Up Care 03/15/2025 14:38:03 With:OLE PACE MD Address: [address] [place] [phone]- [phone] When:2-4 days [facility] 05-13-2025 Emergency department Discharge summary Discharge Instructions [...] OLE PACE MD When:Within 2-4 days Where:[address] [place] [address] [place] [address]- [phone] Allergies Haldol Tongue swelling Oranges Tongue swelling, [...] worse Numbness or weakness in a leg [phone] [employer]. [address] [place] [address]. All rights reserved. This information is not intended as a substitute for professional medical care. Always follow yourhealthcare professional's instructions. Additional Information VACCINATE! IT SAVES LIVES! Members of the community who have not yet received the COVID-19 vaccine and would like to receive it can visit one of [facility] vaccine clinics. There are many vaccine clinic locations within the [facility]. For locations and available times, please visit www.gettheshot.coronavirus.[place].gov/. It is important to note that some COVID mobile vaccine clinics are held outdoors and may be canceled in rainy or stormy conditions. To learn more about pediatric vaccinations (ages 5-11), we invite you to visit the [facility] webpage. https://www.[facility]ron[facility]ous.org/pages/8706-Qposh-Hlrfmljatna-Sddpsrgxeu-Dqanq-Nrn stions.htmlTo learn more about the COVID-19 vaccine, we invite you to visit the CDC website for a list of frequently asked questions. https://www.cdc.gov/coronavirus/2019-ncov/vaccines/faq.html [facility] Patient Portal Access Instructions: Stay connected with your healthcare team and access your personal medical information anytime with the [facility] Patient Portal. If you would like a full copy of your medical records please contact the [facility] Medical Records Department Friday through Friday between 8a.m. and 4:30p.m. Please follow the directions below to access the portal: 1.Access the email account you provided upon registration to the hospital.2.Look for an invitation email from [facility].3.Open the email and access the invitation link: Accept Invitation to [facility]4.Fill in the required quintero to create your account. Sign into www.[employer] with your username and password that you [...] you will allow to register on the [facility] Patient Portal for access to your information. You can also access the [facility] Patient Portal on the [employer]. Simply click on Health Records under P[employer] and then click on the [facility] logo. [...] Call your local pharmacy or go to http://[email or web address]/5K7Cu2k to find one close to you.3.Make use of household items: Use cat litter or old coffee grounds to dispose medications if other options arenot available. Mix your drugs with these household products, seal them in an airtight container andthrow it into the garbage. Call [facility]: [phone] to be sure your drugs can be [...] aware that I should contact my doctor. Patient/Wire Hanger Signature: Date/Time: Relationship to Patient: Witness Name/Signature: Date/Time: [facility] Kppynemt27-35-6069 Emergency department Discharge summary Discharge Instructions Thank [...] PACE MD When:Within 2-4 days Where:[address] [facility] [place] [phone] Allergies Haldol Tongue swelling Oranges Tongue swelling, [...] worse Numbness or weakness in a leg [phone] [employer]. [address] [place] [address]. All rights reserved. This information is not intended as a substitute for professional medical care. Always follow yourhealthcare professional's instructions. Additional Information VACCINATE! IT SAVES LIVES! Members of the community who have not yet received the COVID-19 vaccine and would like to receive it can visit one of [facility] vaccine clinics. There are many vaccine clinic locations within the [facility]. For locations and available times, please visit www.gettheshot.coronavirus.[place].gov/. It is important to note that some COVID mobile vaccine clinics are held outdoors and may be canceled in rainy or stormy conditions. To learn more about pediatric vaccinations (ages 5-11), we invite you to visit the [facility] [employer] [facility] webpage. https://www.[facility].org/pages/6222-Tlkhu-Nqudfucravm-Tdsdsyvhgk-Mqsyy-Oqt stions.htmlTo learn more about the COVID-19 vaccine, we invite you to visit the CDC website for a list of frequently asked questions. https://www.cdc.gov/coronavirus/2019-ncov/vaccines/faq.html [facility] Patient Portal Access Instructions: Stay connected with your healthcare team and access your personal medical information anytime with the [facility] Patient Portal. If you would like a full copy of your medical records please contact the [facility] Medical Records Department Friday through Friday between 8a.m. and 4:30p.m. Please follow the directions below to access the portal: 1.Access the email account you provided upon registration to the [facility].2.Look for an invitation email from [facility].3.Open the email and access the invitation link: Accept Invitation to [facility]4.Fill in the required quintero to create your account. Sign into www.[employer] with your username and password that you [...] you will allow to register on the [facility] Patient Portal for access to your information. You can also access the [facility] Patient Portal on the [employer] joya. Simply click on Health Records under [employer] and then click on the [employer] logo. HOW TO SAFELY DISPOSE OF PRESCRIPTION [...] Call your local pharmacy or go to http://Am[email or web address]/[email or web address] to find one close to you.3.Make use of household items: Use cat litter or old coffee grounds to dispose medications if other options arenot available. Mix your drugs with these household products, seal them in an airtight container andthrow it into the garbage. Call [facility]: [phone] to be sure your drugs can be [...] aware that I should contact my doctor. Patient/Wire Hanger Signature: Date/Time: Relationship to Patient: Witness Name/Signature: Date/Time: [facility] HospitalUsemnkax91-51-9831 Note* Exam Date Time Procedure Performing Provider Status 03/15/25 5:[address] Abd/Pelvis w/ IV Contrast Only CESAR FIERRO DO; Auth (Verified) [id number] ORIGINAL EXAMINATION: CT OF THE ABDOMEN AND [...] Date: 03/15/2025 6:11:20 PM Ordering Provider: [facility] HospitalDdupjzrt85-31-1602 Hospital Discharge instructions Patient Education 03/09/2025 16:35:01 [...] lost, tell your healthcare provider right away. 9530-4345 [employer]. [address] [place] [address]. All rights reserved. This information is not intended as a substitute for professional medical care. Always follow yourhealthcare professional's instructions. Follow Up Care 03/09/2025 12:12:49 With:GONZALEZ SANDERS MD, AQS Address: [address] [place] [phone]- [phone] When:2-4 days only if needed With:OLE PACE MD Address: [address] [place] [phone]- [phone] When:2-4 days [facility] 05-07-2025 Emergency department Discharge summary Discharge Instructions Thank you for allowing [facility] to assist you with your healthcare needs. The following is importantdischarge information regarding your hospital visit. Diagnosis from Today's Visit Flank pain What to Do Next Instructions from Your Care Team No qualifying data available. Post Acute Orders No qualifying data available. You Need to Schedule the Following Appointments Follow Up with GONZALEZ SANDERS MD, AQS When:Within 2-4 days, only if needed Where:[address] [place] [phone] Follow Up with OLE PACE MD When:Within 2-4 days Where:[address] [facility] [place] [address]- [phone] Allergies Haldol Tongue swelling Oranges Tongue swelling, [...] lost, tell your healthcare provider right away. [phone] [employer]. [address] [place] [address], [place] [address]. All rights reserved. This information is not intended as a substitute for professional medical care. Always follow yourhealthcare professional's instructions. Additional Information VACCINATE! IT SAVES LIVES! Members of the community who have not yet received the COVID-19 vaccine and would like to receive it can visit one of [facility] vaccine clinics. There are many vaccine clinic locations within the [facility]. For locations and available times, please visit www.gettheshot.coronavirus.[place].gov/. It is important to note that some COVID mobile vaccine clinics are held outdoors and may be canceled in rainy or stormy conditions. To learn more about pediatric vaccinations (ages 5-11), we invite you to visit the [facility] webpage. https://www.[facility].org/pages/0109-Atkvs-Siwfexfqtun-Eijeztxwjf-Nksqt-Swa stions.htmlTo learn more about the COVID-19 vaccine, we invite you to visit the CDC website for a list of frequently asked questions. https://www.cdc.gov/coronavirus/2019-ncov/vaccines/faq.html [facility] Patient Portal Access Instructions: Stay connected with your healthcare team and access your personal medical information anytime with the [facility] Patient Portal. If you would like a full copy of your medical records please contact the [facility] Medical Records Department Friday through Friday between 8a.m. and 4:30p.m. Please follow the directions below to access the portal: 1.Access the email account you provided upon registration to the [facility].2.Look for an invitation email from [facility].3.Open the email and access the invitation link: Accept Invitation to [facility]4.Fill in the required quintero to create your account. Sign into www.[employer] with your username and password that you [...] you will allow to register on the [facility] Patient Portal for access to your information. You can also access the [facility] Patient Portal on the [employer]. Simply click on Health Records under [employer] and then click on the [employer] logo. HOW TO SAFELY DISPOSE OF PRESCRIPTION [...] Call your local pharmacy or go to http://bit.Segmint/2C0Qw9d to find one close to you.3.Make use of household items: Use cat litter or old coffee grounds to dispose medications if other options arenot available. Mix your drugs with these household products, seal them in an airtight container andthrow it into the garbage. Call [facility]: [phone] to be sure your drugs can be [...] aware that I should contact my doctor. Patient/Wire Hanger Signature: Date/Time: Relationship to Patient: Witness Name/Signature: Date/Time: [facility] HospitalGupgwygq48-59-4792 Note* Exam Date Time Procedure Performing Provider Status 03/09/25 3:[address] Renal SCOOBY JOSE MD; Auth (Verified) [id number] ORIGINAL EXAMINATION: CT RENAL 03/09/2025 3:54 pm [...] Sign Date: 03/09/2025 4:13:54 PM Ordering Provider: [facility]05-07-2025 Note* Exam Date Time Procedure Performing Provider Status 03/09/25 1:49 PM XR Chest 1 View MARTHA TRIVEDI MD; Auth (Verified) [id number] ORIGINAL EXAMINATION: ONE XRAY VIEW OF THE [...] Sign Date: 03/09/2025 2:07:59 PM Ordering Provider: [facility]04-16-2025 Evaluation + Plan noteExtracted from: Title:IR Pre-Procedure [...] 02/14/2025 and can be found in the [facility] Records (PaeDae). Shantelle Herrera PA-C Interventional Radiology Pager: [phone] IR dept: [phone] Available on [employer] Appointments Appointment Date:03/14/2025 01:30:00 PM Scheduled Provider:OLE PACE MD Location:[facility] Palliative Appointment Type:PALL OV Follow Up Appointment Date:05/18/2025 11:20:00 AM Scheduled Provider: Location:[facility]C Appointment Type:SO OV Follow Up Future Scheduled Tests Laboratory* Clostridium difficile (PCR) 03/04/24 * Ova + Parasite Exam 03/04/24 * hCG, quantitative (AH/AM Only) 11/15/24 Radiology* IR Nephrostomy Exchange 12/30/24 [facility] 04-16-2025 Hospital Discharge instructions Patient Education 02/16/2025 10:11:22 Radiology- Nephrostomy/Nephroureteral Tube Exchange 12/26/2022 (Custom) [facility] Nephrostomy/Nephroureteral Tube Exchange Discharge Instructions Interventional Radiology [facility] [address] [place] [address] The procedure that you had done today [...] the feeling of the need to urinate. Wufx-wmz-givcbss pain medication should be used for pain [...] may be obtained at: [facility] [address] [facility] [address] [facility] Any questions or concerns, please contact your physician or Interventional Radiology at [phone] from 8-4:30pm Friday-Friday. If you do not have a follow up appointment scheduled at the time of discharge, please call Interventional Radiology at the number listed above. Follow Up Care 12/22/2024 11:44:53 With:PINA PANTOJA APRN-[facility] Address: [address] [place] [address] [place] [address]- [phone] When: Unknown Comments:Schedule appointment as soon as possible [facility] 04-16-2025 Note* Bita Frias: SIGN, AUTHOR, SIGN, AUTHOR, PERFORM Event Display: IR Procedure Record Authored Date: IR Procedure Record Summary Primary Physician: Finalized Date/Time: 02/16/25 09:07:22 Pt. Name: ANTONELLALALY /Sex: 1990 Female Med Rec #: [id number] Physician: Financial #: [id number] Pt. Type: S Room/Bed[facility]/A Admit/Disch: 02/16/25 06:14:49 - Institution: Allergies [...] Bita Frias JEFFREY MD EYRING, ERIK S APRN-DRY CLEANING MACHINE OPERATOR HELPER Role Performed Tin Flopper 1 Anesthesiologist DRY CLEANING MACHINE OPERATOR HELPER Details Time In 02/16/25 08:10:00 02/16/25 08:10:00 [...] 12 mL Medication CONTRAST ISOVUE 300/30ML 10/CA [id number] Radiology Flouroscopy Fluoroscopy Used? Yes Fluoro Dose (mGy) 3 Fluoro Time 1.2 min Radiology Local Local Used? Yes Local Type: lido 2% Local Dose 3 ml Radiology Procedure Site Site/Location lt flank Site Condition No complications Suture 2.0 Ethibond Suture Dressing Type Gauze sponge 4 X 4, Bioclusive 4 X 5 Technologist Notes [id number] lt neph tube exchange Last Modified By: [...] and Tech, Capo, Blaine results are properly L, Bita Frias labeled and LACHO Metz JEFFREY MD, appropriately FRED ZAYAS displayed, Alcohol WAGE AND SALARY ADMINISTRATOR-DRY CLEANING MACHINE OPERATOR HELPER, Marisa Gastelum based prep dry RN Instrument [...] Radiology - Action Plan Outcomes Met? Yes Exhibit Designer Marisa Gastelum RN Completing Procedure Plan Last Modified By: Bita Frias 02/16/25 08:35:44 Case Comments <None> Finalized By: Bita Frias Document Signatures Signed By: Bita Frias 02/16/25 09:05 Bita Frias 02/16/25 09:07 [facility] 04-16-2025 Summary of episode note Discharge Instructions Thank you for allowing [facility] to assist you with your healthcare needs. The following is importantdischarge information regarding your hospital visit. Your Care Team OLE PACE MD What to do next Scheduled Follow-Up Appointments Appointment Type When With Where Contact Information StatusPALL OV Follow Up 03/14/2025 01:30 PM EDT OLE PACE MD [facility] Confirmed SO OV Follow Up 05/18/2025 11:20 AM EDT [facility] [address] [place] [phone] Confirmed Follow Up Appointments Follow Up with PINA PANTOJA APRN-TECHNICAL PROGRAM MANAGER Where:[address] [place] [address] [place] [address]- [phone] Additional Information: Schedule appointment as soon as [...] medication providers or retail pharmacies. Education Materials CARMEL Nephrostomy/Nephroureteral Tube Exchange Discharge Instructions Interventional Radiology [facility] [address] [place] [address] The procedure that you had done today [...] the feeling of the need to urinate. Yufb-qes-kpqyiwq pain medication should be used for pain [...] may be obtained at: [facility] [address] [facility] [address] [facility] Any questions or concerns, please contact your physician or Interventional Radiology at [phone] from 8-4:30pm Friday-Friday. If you do not have a follow up appointment scheduled at the time of discharge, please call Interventional Radiology at the number listed above. Additional Information VACCINATE! IT SAVES LIVES! Members of the community who have not yet received the COVID-19 vaccine and would like to receive it can visit one of [facility] vaccine clinics. There are many vaccine clinic locations within the [facility]. For locations and available times, please visit https://gettheshot.[email or web address].[place].gov/. It is important to note that some COVID mobile vaccine clinics are held outdoors and may be canceled in rainy or stormy conditions. To learn more about pediatric vaccinations (ages 5-11), we invite you to visit the [facility] webpage. https://www.[facility].org/pages/7733-Cevki-Pgyqrzgugjc-Bixljsdsit-Umkyb-Fql stions.htmlTo learn more about the COVID-19 vaccine, we invite you to visit the CDC website for a list of frequently asked questions.https://www.cdc.gov/coronavirus/2019-ncov/vaccines/faq.html [facility] Patient Portal Access Instructions: Stay connected with your healthcare team and access your personal medical information anytime with the [facility] Patient Portal. Please follow the directions below to create your [employer] account: 1.Access the email account you provided upon registration to the hospital/physician office.2.Look for an invitation email from [facility].3.Open the email and access the invitation link: AcceptInvitation to [facility].4.Fill in the required quintero to create your account. To access your account, visit [email or web address]. Click the blue button labeled Access Patient [...] who you will allowto register on the [facility] Patient Portal for access to your information. You can also access the [facility] Patient Portal on the [facility] joya. Simply click on Patient Portal and then log into your account. If you would like to receive a full copy of your medical records, please contact the [facility] Medical Records Department by calling [phone], Friday through Friday between 8 a.m. and [...] Call your local pharmacy or go to http://bit.Segmint/0L8Fe1c to find one close to you.3.Make use of household items: Use cat litter or old coffee grounds to dispose medications if other options arenot available. Mix your drugs with these household products, seal them in an airtight container andthrow it into the garbage. Call [facility]: [phone] to be sure your drugs can be [...] aware that I should contact my doctor. Patient/Wire Hanger Signature: Date/Time: Relationship to Patient: Witness Name/Signature: Date/Time: [facility] HospitalFqmubkfq08-18-9918 Note* Exam Date Time Procedure Performing Provider Status 02/16/25 9:09 AM IR Nephrostomy Exchange MADELINE APARICIO; Auth (Verified) [id number] ORIGINAL PROCEDURE: 1. Percutaneous left nephrostomy tube exchange with fluoroscopy CLINICAL STATEMENT: History of cervical cancer with left ureteral obstruction WOOD REPATCHER: Tadeo Leija PA-C MATERIALS: 12 Fr X [...] using 2 identifiers, confirming site and side. Maxillofacial Prosthodontist image with contrast injection demonstrates stable appearance [...] Date: 02/16/2025 4:47:28 PM Ordering Provider: PINA PANTOJA [facility]Fpyoputg73-45-9632 Note IR Procedure Record Summary Primary Physician: Finalized Date/Time: 02/16/25 09:07:22 Pt. Name: LALY NAVAS/Sex: 1990 Female Med Rec #: [id number] Physician: Financial #: [id number] Pt. Type: S Room/Bed: [facility] [facility]0/A Admit/Disch: 02/16/25 06:14:49 - Institution: Allergies [...] Bita Frias JEFFREY MD EYRING, ERIK S WAGE AND SALARY ADMINISTRATOR-DRY CLEANING MACHINE OPERATOR HELPER Role Performed Tin Flopper 1 Anesthesiologist DRY CLEANING MACHINE OPERATOR HELPER Details Time In 02/16/25 08:10:00 02/16/25 08:10:00 [...] Card (SN) Primary Procedure Yes Primary Surgeon TADOE LEIJA PA-C Anesthesia/Sedation General, Local Type Additional Procedure Times Start 02/16/25 08:38:00 Stop 02/16/25 08:46:00 Specialty Service SN Radiology Procedure EBL 1 mL Last Modified By: Bita Frias 02/16/25 09:05:28 Radiology Procedure Details - IR Entry 1 Radiology Sedation Case Times Sedation Total Time 0 Radiology - Fluid/Drainage Radiology Contrast Contrast Used? Yes Dose 12 mL Medication CONTRAST ISOVUE 300/30ML 10/CA 204296 Radiology Flouroscopy Fluoroscopy Used? Yes Fluoro Dose (mGy) 3 Fluoro Time 1.2 min Radiology Local Local Used? Yes Local Type: lido 2% Local Dose 3 ml Radiology Procedure Site Site/Location lt flank Site Condition No complications Suture 2.0 Ethibond Suture Dressing Type Gauze sponge 4 X 4, Bioclusive 4 X 5 Technologist Notes [id number] lt neph tube exchange Last Modified By: [...] marked, Present for Time Out Padmini Fairchild R Rad Relevant images and Tech, Capo, Blaine results are properly L, Bita Frias labeled and LACHO Metz JEFFREY MD, appropriately FRED ZAYAS displayed, Alcohol WAGE AND SALARY ADMINISTRATOR-Nirav ESPINOZA Hannah based prep dry RN Instrument [...] Radiology - Action Plan Outcomes Met? Yes Exhibit Designer Marisa Gastelum RN Completing Procedure Plan Last Modified By: Bita Frias 02/16/25 08:35:44 Case Comments Finalized By: Bita Frias Document Signatures Signed By: Bita Frias 02/16/25 09:05 Bita Frias 02/16/25 09:07 [id number] Procedure note IR Brief Post Procedure Note [...] follow. Tadeo Leija PA-C Interventional Radiology Pager: [phone] IR dept: [id number] Available on aBIZinaBOX Digitally Signed by TADEO LEIJA PA-C on 02/16/2025 09:00 AM [id number] Anesthesiology Consult note Patient: LALY NAVAS Age: [...] for anxiety, # 90 tab(s),2 Refill(s), Pharmacy: [facility] Palliative care patient THO (generalized anxiety disorder), 167.6, cm, 12/22/24 8:11:00 EST, Height, 53.6, kg, ... Lexapro 20 mg oral tablet: Dose : 20 mg = 1 tab(s), Oral, qDay, # 30 tab(s), 5 Refill(s), Pharmacy:[facility] 167.6, cm, 12/22/24 8:11:00 EST, Height, kg, 12/22/24 8:11:00 EST,Dosing Weight ondansetron 4 mg oral tablet: Dose : 4 mg = 1 tab(s), Oral, BID, TAKE ONE TABLET BY MOUTH EVERY 8 HOURS NEEDED FOR NAUSEA AND VOMITING, # 60 tab(s), 2 Refill(s), Pharmacy: [facility], [facility] 167.6, cm, 11/15/24 8:43:00 EST, Height, kg, 10/13/24 6:49:00 EST, Dosing... oxyCODONE 5 mg oral tablet ( IMMEDIATE release ): Dose : 10 mg = 2 tab(s), Oral, q6h, PRN for pain,# 240 tab(s), 0 Refill(s), Pharmacy: [facility] Cervical ca Cancer related pain, 167.6, cm, [...] Problem list: Medical Anxiety / SNOMED CT 13929652 / Confirmed Asthma / SNOMED CT 317402673 / Confirmed Decreased appetite / SNOMED CT 795767654 / Confirmed Dehydration / SNOMED CT 01292099 / Confirmed Bilateral flank pain / SNOMED CT 772454449 / Confirmed History of chemotherapy / SNOMED CT 0906981955 / Confirmed Hx of cervical cancer / SNOMED CT 4431427209 / Confirmed History of radiation therapy / SNOMED CT 2335296148 / Confirmed Hydronephrosis, left / SNOMED CT 82944899 / Confirmed Acute kidney injury / SNOMED CT 91546201 / Confirmed Left flank pain / SNOMED CT 055664722 / Confirmed Cervical cancer / SNOMED CT 517732092 / Confirmed Moderate protein-calorie malnutrition / SNOMED CT 535379426 / Confirmed Nausea and vomiting / SNOMED CT 50925919 / Confirmed Cancer related pain / SNOMED CT 4736198968 / Confirmed DVT prophylaxis / SNOMED CT 707193458 / Confirmed Palliative care encounter / SNOMED CT 086366252 / Confirmed Premature menopause / SNOMED CT 8037916866 / Confirmed Pyelonephritis / SNOMED CT 96566130 / Confirmed Nephrostomy status / SNOMED CT 481011280 / Confirmed Obstructive uropathy / SNOMED CT 54755215 / Confirmed Resolved: Chronic kidney disease, stage 3 (moderate) / SNOMED CT 4960218716 Resolved: Port-A-Cath in place / SNOMED CT 2770013198 Resolved: History of COVID-19 / SNOMED CT 1438034402 Resolved: Hydronephrosis of left kidney / SNOMED CT 97943339 Resolved: ESBL (extended spectrum beta-lactamase) producing bacteria infection / SNOMED CT 7521768282 Resolved: ESBL (extended spectrum beta-lactamase) producing bacteria infection / SNOMED CT 2188310723 Resolved: Cervicitis / SNOMED CT 720308049 Resolved: Mass of cervix / SNOMED CT 075748013 Resolved: Encounter for antineoplastic chemotherapy / SNOMED CT 346761692 Resolved: Tinnitus / SNOMED CT 455631311 Resolved: Complicated UTI (urinary tract infection) / SNOMED CT 162963573 Canceled: Cervical cancer / SNOMED CT 2031795101 Canceled: Dysuria / SNOMED CT 02037200 Canceled: Flank pain / SNOMED CT 905757897 Canceled: Hydronephrosis / SNOMED CT 22514921 Canceled: Cervical cancer / SNOMED CT 193691463 Canceled: Cervical ca / SNOMED CT 778302195 Canceled: Secondary amenorrhea / SNOMED CT 498095328 Canceled: Nephrostomy status / SNOMED CT 670107872, Active Problems (34) Acid reflux Acute kidney [...] ESBL (extended spectrum beta-lactamase) producing bacteria infection (0388029861): Onset on 02/23/2023 at 32 years. Resolved on 05/07/2023 at 32 years. ESBL (extended spectrum beta-lactamase) producing bacteria infection (8611892788): Onset on 08/09/2022 at 31 years. Resolved on 01/02/2023 at 32 years. Comments: 01/02/2023 SUMEET 10:02 JAMAL Haynes Removed ESBL disease alert from 08/2022 per infection control protocol on 01/02/23. Mass of cervix (084004007): Resolved. Chronic kidney disease, stage 3 (moderate) (5519905605): Resolved. Hydronephrosis of left kidney (79007695): Resolved. Cervicitis (909685776): Resolved. Encounter for antineoplastic chemotherapy (336578991): Resolved. Port-A-Cath in place (2695037060): Resolved. Tinnitus (897905061): Resolved. Complicated UTI (urinary tract infection) (455674457): Resolved. History of COVID-19 (8130534376): Resolved. Family History: Cancer Sister COPD - Chronic obstructive pulmonary disease Mother Father Kidney stone Mother Asthma Mother Breast cancer Mother Hypertension Mother Heart disease Mother Substance abuse Father Alcohol abuse Father Stroke Grandparent Father Malignant tumor of ovary Sister Heart attack Mother Diabetes Grandparent Procedure history: Nephrostomy using fluoroscopic guidance (2280695804) on 06/16/2024 at 33 Years. Comments: 06/21/2024 11:46 Fany Beard LPN left JJ stent ([id number]) on 06/16/2024 at 33 Years. Comments: 06/21/2024 11:47 Fany Beard LPN left Nephrostomy tube (779690932) on 10/05/2023 at 32 Years. Comments: 11/19/2023 9:37 SUMEET - Fany Ruelas SALESPERSON [employer] left side Nephrostomy with tube drainage (07427190) in the month of 07/2023 at 32 Years. Comments: 06/13/2020 10:09 JAMAL Guaman left Nephrostomy with tube drainage (11899019) on 01/10/2021 at 30 Years. Cannulation of Portacath (830310407) in 2020 at 30 Years. Comments: 06/13/2020 10:09 JAMAL Guaman right JJ stent ([id number]) on 11/15/2020 at 29 Years. Radiation (200687339) in the month of 06/2020 at 29 Years. Comments: 06/26/2020 6:12 GINNY Burton RN Mayi A via tandems and oviod X2 Cervical biopsy (39276584) in 2019 at 29 Years. Comments: 04/12/2020 18:25 Eri Conte RN pt states she had a cervical biopsy done on 04/07/2020 at [facility] for a cervical mass Tumor cells, benign (37870600) in 2001 at 11 Years. 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 done at [facility] in [place] Social History: Social & Psychosocial Habits Alcohol [...] home Comment: current vaping - 08/06/2024 07:22 JAMAL Dominguez Home/Environment 02/16/2025Risk Assessment: No Risk 02/16/2025 Living [...] Signs (last 24 hrs) Last Charted Temp Vwkbldng55.9 DegC (FEB 16 06:37) QVW095 mmHg (FEB 16 06:37) DBP79 mmHg (FEB 16 06:37) Measurements from flowsheet : Measurements 02/16/2025 6:37 EDT Height 167.6 cm Height in inches 66 inch(es) Admission Weight 110.7 kg Weight Lbs 243.5 lb Weight Method Actual [place] Body Weight 59.26 kg Type of Scale [...] Documentation reviewed: Current records. Assessment and Plan [place] Society of Anesthesiologists (ASA) physical status classification: Class II. Anesthetic Preoperative Plan Premedication: intravenous. Anesthetic technique: General. Induction: intravenously. Maintenance airway: Oral endotracheal tube. Postoperative pain management: Per surgeon. Informed consent: signed by patient. Digitally Signed by OLE MONK MD on 02/16/2025 08:05 AM [id number] History and physical note IR PREPROCEDURE H&P [...] 02/14/2025 and can be found in the [facility] ([employer]). Shantelle Herrera PA-C Interventional Radiology Pager: [phone] IR dept: [phone] Available on aBIZinaBOX Digitally Signed by SHANTELLE HERRERA PA-C on 02/16/2025 07:50 AM Digitally Signed by MADELINE APARICIO MD on 02/16/2025 08:12 AM [facility] HospitalYaqubjkb74-20-7295 Hospital Discharge instructions Patient Education 12/22/2024 12:16:43 Radiology- Nephrostomy/Nephroureteral Tube Exchange 12/26/2022(CUSTOM) CARMEL Nephrostomy/Nephroureteral Tube Exchange Discharge Instructions Interventional Radiology [facility] [address] [place] [address] The procedure that you had done today [...] the feeling of the need to urinate. Lroa-deh-njwybzz pain medication should be used for pain [...] the gauze. Supplies may be obtained at: [facility] [address] [facility] [address] [facility] Any questions or concerns, please contact your physician or Interventional Radiology at [phone] from 8-4:30pm Friday-Friday. If you do not have a follow up appointment scheduled at the time of discharge, please call Interventional Radiology at the number listed above. 12/22/2024 12:16:34 Radiology- Port Removal 08/13/2024(CUSTOM) CARMEL Port Removal Discharge Instructions Interventional Radiology [facility] [address] [place] [address] Your physician has requested that you have [...] for 7 days. Special instructions: PAIN CONTROL: Bmbr-xfb-iykzjtk pain medication should be used for pain [...] instruction below: 8:00 am- 5:00 pm call [phone] After 24 hours, contact the physician who ordered this procedure for you. Additional Instructions: Follow Up Care 12/09/2024 13:25:55 With:OLE PACE MD Address: [address] [place] [address] [place] [phone] [phone] When: Unknown Comments:Call with any questions or concerns [facility] 02-19-2025 Evaluation + Plan noteExtracted from: Title:Preprocedure [...] 12/13/24 and can be found in the [facility] ([facility]). Lacey Loera PA-C Interventional Radiology IR Dept [id number] Available on RETAIL PRO Future Appointments Appointment Date:01/05/2025 12:30:00 PM Scheduled Provider: Location:IR Appointment Type:IR Procedure Follow Up Appointment Date:01/17/2025 03:00:00 PM Scheduled Provider:OLE PACE MD Location:[facility] Palliative Appointment Type:PALL OV Follow Up Appointment Date:02/16/2025 08:00:00 AM Scheduled Provider: Location:IR Appointment Type:IR Nephrostomy Exchange Appointment Date:05/18/2025 11:20:00 AM Scheduled Provider: Location:[facility] Appointment Type:SO OV Follow Up Future Scheduled Tests Laboratory* Clostridium difficile (PCR) 03/04/24 * Ova + Parasite Exam 03/04/24 * hCG, quantitative (AH/AM Only) 11/15/24 Radiology* IR Nephrostomy Exchange 02/16/25 * IR Procedure Follow Up 01/05/25 [facility] 02-19-2025 Summary of episode note Discharge Instructions Thank you for allowing [facility] to assist you with your healthcare needs. The following is importantdischarge information regarding your hospital visit. Your Care Team OLE PACE MD What to do next Scheduled Follow-Up Appointments Appointment Type When With Where Contact Information StatusIR Procedure Follow Up 01/05/2025 12:30 PM EST IR Confirmed PALL OV Follow Up 01/17/2025 03:00 PM EDT OLE PACE MD [facility] Confirmed IR Nephrostomy Exchange 02/16/2025 08:00 AM EDT IR Confirmed SO OV Follow Up 05/18/2025 11:20 AM EDT [facility] [address] [place] [id number] Confirmed Follow Up Appointments Follow Up with OLE PACE MD Where:[address] [place] [address] [place] [address]- [phone] Additional Information: Call with any questions or [...] medication providers or retail pharmacies. Education Materials CARMEL Nephrostomy/Nephroureteral Tube Exchange Discharge Instructions Interventional Radiology [facility] [address] [place] [address] The procedure that you had done today [...] the feeling of the need to urinate. Eodb-qwe-htiogtl pain medication should be used for pain [...] the gauze. Supplies may be obtained at: [address] [facility] Any questions or concerns, please contact your physician or Interventional Radiology at [phone] from 8-4:30pm Friday-Friday. If you do not have a follow up appointment scheduled at the time of discharge, please call Interventional Radiology at the number listed above. CARMEL Port Removal Discharge Instructions Interventional Radiology [facility] [address] [place] [address] Your physician has requested that you have [...] for 7 days. Special instructions: PAIN CONTROL: Shmv-ypi-misflcu pain medication should be used for pain [...] instruction below: 8:00 am- 5:00 pm call [phone] After 24 hours, contact the physician who ordered this procedure for you. Additional Instructions: Additional Information VACCINATE! IT SAVES LIVES! Members of the community who have not yet received the COVID-19 vaccine and would like to receive it can visit one of [facility] vaccine clinics. There are many vaccine clinic locations within the [facility]. For locations and available times, please visit [email or web address] It is important to note that some COVID mobile vaccine clinics are held outdoors and may be canceled in rainy or stormy conditions. To learn more about pediatric vaccinations (ages 5-11), we invite you to visit the [facility] webpage. [email or web address] learn more about the COVID-19 vaccine, we invite you to visit the CDC website for a list of frequently asked questions.https://www.cdc.gov/coronavirus/2019-ncov/vaccines/faq.html [facility] Patient Portal Access Instructions: Stay connected with your healthcare team and access your personal medical information anytime with the [facility] Patient Portal. Please follow the directions below to create your [facility] account: 1.Access the email account you provided upon registration to the hospital/physician office.2.Look for an invitation email from [facility].3.Open the email and access the invitation link: AcceptInvitation to [facility].4.Fill in the required quintero to create your account. To access your account, visit [employer]/Ateo[employer]Chart. Click the blue button labeled Access Patient Portal and then log in with the username and password that you created in the steps above. You will be able to view your test results, lab results, a summary of your visits, upcoming appointments and more. There is also a convenient messaging option where you can send secure messages to your p E[employer]ider. In addition, you will have the ability to download any documents or summaries to your computer and/or send the information securely to a physician. Remember that your healthcare information is confidential, so carefully consider who you will allowto register on the [facility] Patient Portal for access to your information. You can also access the [facility] Patient Portal on the [employer] joya. Simply click on Patient Portal and then log into your account. If you would like to receive a full copy of your medical records, please contact the [facility] Medical Records Department by calling [phone], Friday through Friday between 8 a.m. and [...] Call your local pharmacy or go to [email or web address] to find one close to you.3.Make use of household items: Use cat litter or old coffee grounds to dispose medications if other options arenot available. Mix your drugs with these household products, seal them in an airtight container andthrow it into the garbage. Call [facility]: [phone] to be sure your drugs can be [...] aware that I should contact my doctor. Patient/Wire Hanger Signature: Date/Time: Relationship to Patient: Witness Name/Signature: Date/Time: [facility] [id number] Note* Exam Date Time Procedure Performing Provider Status 12/22/24 11:11 AM IR Nephrostomy Exchange GERDA RANDHAWA DO; Auth (Verified) [id number] ORIGINAL PROCEDURE: IR NEPHROSTOMY TUBE CHANGE 12/22/2024 [...] Guidewires advanced over which previously placed 12 Guamanian nephrostomy tube was exchanged for a new 12 Guamanian nephrostomy tube. Tip curled within left renal [...] the procedure including risks, benefits, and alternatives. Felt protocol was observed. Sterile gowns, masks, hats and gloves utilized for maximal sterile barrier. FINDINGS: Antegrade nephrostogram demonstrates satisfactory position of previously placed left nephrostomy tube. Postprocedure images demonstrate new nephrostomy catheter with tip curled within decompressed left renal pelvis. No complication suggested. IMPRESSION: Maintenance exchange of previously placed left nephrostomy tube for new 12 Guamanian nephrostomy catheter via previously established tract with tip curled in decompressed left renal pelvis. No complication suggested. Interpreted by: Clotilde Randhawa DO Preliminary Report By: Clotilde Randhawa DO Electronically signed By Clotilde Randhawa DO Dictated Date: 12/22/2024 3:54:55 PM Prelim Date: 12/22/2024 3:57:35 PM Sign Date: 12/22/2024 3:57:35 PM Ordering Provider: NASRIN [facility]02-19-2025 Procedure note Date of Service INTERVENTIONAL RADIOLOGY POST PROCEDURE NOTE Pre-Procedure Diagnosis: [left nephrostomy tube maintenance exchange, iv access port removal / no further need for port] Post Procedure Diagnosis: Same. Broke Beater Operator: Dr. Clotilde Randhawa DO Procedure: [left nephrostomy [...] CLOTILDE RANDHAWA DO on 12/22/2024 11:10 AM [facility] [id number] Note* Exam Date Time Procedure Performing Provider Status 12/22/24 10:40 AM IR Port Removal CLOTILDE RANDHAWA DO; Auth (Verified) [id number] ORIGINAL PROCEDURE: IR REMOVAL OF TUNNELED CATHETER [...] the procedure including risks, benefits, and alternatives. Felt protocol was observed. Sterile gowns, masks, hats [...] 12/22/2024 3:59:55 PM Ordering Provider: NASRIN ISABEL [facility] HospitalMqarujiy36-08-3405 History and physical note IR PREPROCEDURE H&P [...] 12/13/24 and can be found in the [facility] Records ([facility]). Lacey Loera PA-C Interventional Radiology IR Dept [id number] Available on RETAIL PRO Digitally Signed by LACEY LOERA PA-C on 12/22/2024 09:52 AM Digitally Signed by CLOTILDE RANDHAWA DO on 12/22/2024 12:44 PM [facility] HospitalCutzkigw07-11-7697 Anesthesiology Consult note Patient: LALY NAVAS Age: [...] Problem list: Medical Anxiety / SNOMED CT 27449380 / Confirmed Asthma / SNOMED CT 188761799 / Confirmed Decreased appetite / SNOMED CT 842260894 / Confirmed Dehydration / SNOMED CT 61571647 / Confirmed Bilateral flank pain / SNOMED CT 921348013 / Confirmed History of chemotherapy / SNOMED CT 1321704419 / Confirmed Hx of cervical cancer / SNOMED CT 1717605884 / Confirmed History of radiation therapy / SNOMED CT 7050596755 / Confirmed Hydronephrosis, left / SNOMED CT 85749378 / Confirmed Acute kidney injury / SNOMED CT 51274923 / Confirmed Left flank pain / SNOMED CT 916455214 / Confirmed Cervical cancer / SNOMED CT 358077214 / Confirmed Moderate protein-calorie malnutrition / SNOMED CT 736614932 / Confirmed Nausea and vomiting / SNOMED CT 25929774 / Confirmed Cancer related pain / SNOMED CT 4945308334 / Confirmed DVT prophylaxis / SNOMED CT 415801518 / Confirmed Palliative care encounter / SNOMED CT 158597310 / Confirmed Premature menopause / SNOMED CT 1563169320 / Confirmed Pyelonephritis / SNOMED CT 82341732 / Confirmed Nephrostomy status / SNOMED CT 696122671 / Confirmed Obstructive uropathy / SNOMED CT 50127746 / Confirmed Resolved: Chronic kidney disease, stage 3 (moderate) / SNOMED CT 2798223413 Resolved: Port-A-Cath in place / SNOMED CT 2642816968 Resolved: History of COVID-19 / SNOMED CT 7549411519 Resolved: Hydronephrosis of left kidney / SNOMED CT 28036624 Resolved: ESBL (extended spectrum beta-lactamase) producing bacteria infection / SNOMED CT 5460811974 Resolved: ESBL (extended spectrum beta-lactamase) producing bacteria infection / SNOMED CT 0466167523 Resolved: Cervicitis / SNOMED CT 331788079 Resolved: Mass of cervix / SNOMED CT 615386734 Resolved: Encounter for antineoplastic chemotherapy / SNOMED CT 502084601 Resolved: Tinnitus / SNOMED CT 917797643 Resolved: Complicated UTI (urinary tract infection) / SNOMED CT 621550675 Canceled: Cervical cancer / SNOMED CT 5196688744 Canceled: Dysuria / SNOMED CT 73662145 Canceled: Flank pain / SNOMED CT 150835050 Canceled: Hydronephrosis / SNOMED CT 74340975 Canceled: Cervical cancer / SNOMED CT 614975104 Canceled: Cervical ca / SNOMED CT 482511181 Canceled: Secondary amenorrhea / SNOMED CT 534113263 Canceled: Nephrostomy status / SNOMED CT 156845745, Active Problems (33) Acid reflux Acute kidney [...] ESBL (extended spectrum beta-lactamase) producing bacteria infection (1224634167): Onset on 02/23/2023 at 32 years. Resolved on 05/07/2023 at 32 years. ESBL (extended spectrum beta-lactamase) producing bacteria infection (4259462305): Onset on 08/09/2022 at 31 years. Resolved on 01/02/2023 at 32 years. Comments: 01/02/2023 EST 10:02 JAMAL Haynes Removed ESBL disease alert from 08/2022 per infection control protocol on 01/02/23. Mass of cervix (992680224): Resolved. Chronic kidney disease, stage 3 (moderate) (5868279486): Resolved. Hydronephrosis of left kidney (74793115): Resolved. Cervicitis (608425876): Resolved. Encounter for antineoplastic chemotherapy (784778299): Resolved. Port-A-Cath in place (9337129009): Resolved. Tinnitus (642839784): Resolved. Complicated UTI (urinary tract infection) (121408847): Resolved. History of COVID-19 (3584345410): Resolved. Procedure history: Nephrostomy using fluoroscopic guidance (4798224351) on 06/16/2024 at 33 Years. Comments: 06/21/2024 11:46 Fany Beard LPN left JJ stent ([id number]) on 06/16/2024 at 33 Years. Comments: 06/21/2024 11:47 Fany Beard LPN left Nephrostomy tube (507377536) on 10/05/2023 at 32 Years. Comments: 11/19/2023 9:37 Fany Sanchez LPN left side Nephrostomy with tube drainage (86141291) in the month of 07/2023 at 32 Years. Comments: 06/13/2020 10:09 JAMAL Guaman left Nephrostomy with tube drainage (62558709) on 01/10/2021 at 30 Years. Cannulation of Portacath (533169903) in 2020 at 30 Years. Comments: 06/13/2020 10:09 JAMAL Guaman right JJ stent ([id number]) on 11/15/2020 at 29 Years. Radiation (758706929) in the month of 06/2020 at 29 Years. Comments: 06/26/2020 6:12 GINNY Burton RN Mayi A via tandems and oviod X2 Cervical biopsy ([id number]) in 2019 at 29 Years. Comments: 04/12/2020 18:25 Eri Conte RN pt states she had a cervical biopsy done on 04/07/2020 at [facility] for a cervical mass Tumor cells, benign (26712288) in 2001 at 11 Years. 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 done at [facility] in [place] Social History: Social & Psychosocial Habits Alcohol [...] home Comment: current vaping - 08/06/2024 07:22 Leta Ferrer RN [facility] Home/Environment 12/22/2024Risk Assessment: No Risk 12/22/2024 [...] Signs (last 24 hrs) Last Charted Temp Oqoylhcr58.4 DegC (DEC 22 08:08) Heart Rate ApicalL 57 bpm (DEC 22 08:08) UTX386 mmHg (DEC 22 08:08) DBP80 mmHg (DEC 22 08:08) Measurements from flowsheet : Measurements 12/22/2024 8:08 EST Height 167.6 cm Height in inches 66 inch(es) Admission Weight 53.6 kg Weight Lbs 117.9 lb [place] Body Weight 59.26 kg Admission Body Mass [...] Documentation reviewed: Current records. Assessment and Plan [place] Society of Anesthesiologists (ASA) physical status classification: Class III. Anesthetic Preoperative Plan Premedication: intravenous. Anesthetic technique: General. Induction: intravenously. Maintenance airway: Oral endotracheal tube. Postoperative pain management: Per surgeon. Risks discussed: nausea, vomiting, sore throat, dental injury, hypotension, allergic reaction, serious complications. Informed consent: signed by patient. Digitally Signed by NOEMI AYALA MD on 12/22/2024 09:03 AM [id number] Discharge instructions Patient Education 08/11/2024 12:13:30 Radiology- Nephrostomy/Nephroureteral Tube Exchange 12/26/2022(CUSTOM) CARMEL Nephrostomy/Nephroureteral Tube Exchange Discharge Instructions Interventional Radiology [facility] [address] [place] [address] The procedure that you had done today [...] the feeling of the need to urinate. Ehio-dze-ohqnkho pain medication should be used for pain [...] the gauze. Supplies may be obtained at: [facility] [address] [facility] Any questions or concerns, please contact your physician or Interventional Radiology at [phone] from 8-4:30pm Friday-Friday. If you do not have a follow up appointment scheduled at the time of discharge, please call Interventional Radiology at the number listed above. [facility] 10-09-2024 Evaluation + Plan noteExtracted from: Title:IR [...] 07/19/2024 and can be found in the [facility] ([facility]). Sky Newsome PA-C Interventional Radiology Pager: [phone] IR dept: [phone] Available on aBIZinaBOX Future Appointments Appointment Date:08/16/2024 09:00:00 AM Scheduled Provider:OLE PACE MD Location:[facility] Palliative Appointment Type:PALL OV Follow Up Future Scheduled Tests Laboratory* Clostridium difficile (PCR) 03/04/24 * Ova + Parasite Exam 03/04/24 Radiology* IR Nephrostomy Tube Change Lt Guide 09/04/23 [facility] 10-09-2024 Note* Juana Wilhelm RN: SIGN, AUTHOR, SIGN, AUTHOR, PERFORM Event Display: IR Procedure Record Authored Date: [id number] IR Procedure Record Summary Primary Physician: Finalized Date/Time: 08/11/24 10:35:27 Pt. Name: LALY NAVAS Austen /Sex: 1990 Female Med Rec #: [id number] Physician: Financial #: [id number] Pt. Type: S Room/Bed: [facility] Admit/Disch: 08/11/24 07:53:56 - Institution: Allergies [...] Case Attendee GARTH GOSS MD, Blaine Sim, Picking Crew SupervisorMendel Edwards Role Performed Procedure Surgeon Scrub Technologist Circulating [...] Case Attendee Juana Wilhelm RN, ADAM A APRN-DRY CLEANING MACHINE OPERATOR HELPER Role Performed Procedure Nurse DRY CLEANING MACHINE OPERATOR HELPER Details Time In 08/11/24 09:58:00 08/11/24 09:58:00 [...] Out Blaine Scanlon, Relevant images and Sam Sim Grace, results are properly Juana Wilhelm RN [...] Radiology - Action Plan Outcomes Met? Yes Exhibit Designer Juana Wilhelm RN Completing Procedure Plan Last Modified By: Juana Wilhelm RN 08/11/24 09:41:12 Case Comments <None> Finalized By: Juana Wilhelm RN Document Signatures Signed By: Juana Wilhelm RN 08/11/24 10:35 Juana Wilhelm RN 08/11/24 10:35 [facility] 10-09-2024 Summary of episode note Discharge Instructions Thank you for allowing [facility] to assist you with your healthcare needs. The following is importantdischarge information regarding your hospital visit. Your Care Team OLE PACE MD What to do next Scheduled Follow-Up Appointments Appointment Type When With Where Contact Information StatusPALL OV Follow Up 08/16/2024 09:00 AM EDT OLE PACE MD [facility] Confirmed Allergies Haldol Tongue swelling [...] medication providers or retail pharmacies. Education Materials CARMEL Nephrostomy/Nephroureteral Tube Exchange Discharge Instructions Interventional Radiology [facility] [address] [place] [address] The procedure that you had done today [...] the feeling of the need to urinate. Qgtp-fjq-fiixixv pain medication should be used for pain [...] the gauze. Supplies may be obtained at: [facility] [address] [facility] Any questions or concerns, please contact your physician or Interventional Radiology at [phone] from 8-4:30pm Friday-Friday. If you do not have a follow up appointment scheduled at the time of discharge, please call Interventional Radiology at the number listed above. Additional Information VACCINATE! IT SAVES LIVES! Members of the community who have not yet received the COVID-19 vaccine and would like to receive it can visit one of [facility] vaccine clinics. There are many vaccine clinic locations within the [facility]. For locations and available times, please visit [email or web address]/. It is important to note that some COVID mobile vaccine clinics are held outdoors and may be canceled in rainy or stormy conditions. To learn more about pediatric vaccinations (ages 5-11), we invite you to visit the [facility] webpage. https://www.[facility].org/pages/7122-Nbdni-Igxonaqztpo-Osorjnikzh-Mrunh-Szw stions.htmlTo learn more about the COVID-19 vaccine, we invite you to visit the CDC website for a list of frequently asked questions.https://www.cdc.gov/coronavirus/2019-ncov/vaccines/faq.html [facility] Patient Portal Access Instructions: Stay connected with your healthcare team and access your personal medical information anytime with the [facility] [employer] Patient Portal. Please follow the directions below to create your [employer] account: 1.Access the email account you provided upon registration to the hospital/physician office.2.Look for an invitation email from [facility].3.Open the email and access the invitation link: AcceptInvitation to [employer].4.Fill in the required quintero to create your account. To access your account, visit [email or web address] [place]. Click the blue button labeled Access Patient Portal and then log in with the username and password that you created in the steps above. You will be able to view your test results, lab results, a summary of your visits, upcoming appointments and more. There is also a convenient messaging option where you can send secure messages to your p [employer]ider. In addition, you will have the ability to download any documents or summaries to your computer and/or send the information securely to a physician. Remember that your healthcare information is confidential, so carefully consider who you will allowto register on the [facility] Patient Portal for access to your information. You can also access the [facility] Patient Portal on the [facility] [employer] joya. Simply click on Patient Portal and then log into your account. If you would like to receive a full copy of your medical records, please contact the [facility] Medical Records Department by calling [phone], Friday through Friday between 8 a.m. and [...] Call your local pharmacy or go to http://bit.ly/0Y7Yq1a to find one close to you.3.Make use of household items: Use cat litter or old coffee grounds to dispose medications if other options arenot available. Mix your drugs with these household products, seal them in an airtight container andthrow it into the garbage. Call [facility]: [phone] to be sure your drugs can be [...] aware that I should contact my doctor. Patient/Wire Hanger Signature: Date/Time: Relationship to Patient: Witness Name/Signature: Date/Time: [facility] Note ORIGINAL HISTORY: ORDERING SYSTEM PROVIDED HISTORY: Reason for Exam: cervical caner PROCEDURE: 1. Nephrostomy tube exchange under fluoroscopy LATERALITY: Left WOOD REPATCHER: Dr. Goss Resident: Dr. English MATERIALS: 12 Fr drainage catheter Amplatz Harbeson bag Jese catheter ANESTHESIA: General anaesthesia. INTRASERVICE [...] sterilely prepped and draped. Time out performed. Maxillofacial Prosthodontist image demonstrates stable appearance of the nephrostomy [...] Sign Date: 08/11/2024 5:39:17 PM Ordering Provider: [facility]10-09-2024 Note IR Procedure Record Summary Primary Physician: Finalized Date/Time: 08/11/24 10:35:27 Pt. Name: LALY NAVAS Austen Chapman./Sex: 1990 Female Med Rec #: [id number] Physician: Financial #: [id number] Pt. Type: S Room/Bed: [facility] Admit/Disch: 08/11/24 07:53:56 - Institution: Allergies [...] Case Attendee GARTH GOSS MD, Blaine Sim, Picking Crew Supervisor Grace Role Performed Procedure Surgeon Scrub Technologist [...] Case Attendee Juana Wilhelm RN, ADAM A APRN-DRY CLEANING MACHINE OPERATOR HELPER Role Performed Procedure Nurse DRY CLEANING MACHINE OPERATOR HELPER Details Time In 08/11/24 09:58:00 08/11/24 09:58:00 [...] Members GARTH GOSS MD, Verifying Sterility CapoChristianon Austen Procedure IR Nephrostomy Exchange (SN) Last Modified [...] Radiology - Action Plan Outcomes Met? Yes Exhibit Designer Juana Wilhelm RN Completing Procedure Plan Last Modified By: Juana Wilhelm RN 08/11/24 09:41:12 Case Comments Finalized By: Juana Wilhelm RN Document Signatures Signed By: Juana Wilhelm RN 08/11/24 10:35 Juana Wilhelm RN 08/11/24 10:35 [facility]hsxzwjp74-91-7781 History and physical note IR PREPROCEDURE H&P [...] 07/19/2024 and can be found in the [facility] (PaeDae). Sky Newsome PA-C Interventional Radiology Pager: [phone] IR dept: x [phone] Available on aBIZinaBOX Digitally Signed by SKY NEWSOME PA-C on 08/11/2024 09:39 AM [facility] HospitalKimubhyz41-64-0497 Anesthesiology Consult note Patient: LALY NAVAS Age: [...] for further details Acid reflux (controlled with fpif-gpl-nmxqlpp Pepto), anxiety, asthma, bradycardia, cervical cancer, cervicitis, [...] Problem list: Medical Anxiety / SNOMED CT 28158760 / Confirmed Asthma / SNOMED CT 573234742 / Confirmed Decreased appetite / SNOMED CT 844286322 / Confirmed Dehydration / SNOMED CT 85745536 / Confirmed Port-A-Cath in place / SNOMED CT 4677898807 / Confirmed Bilateral flank pain / SNOMED CT 059252847 / Confirmed History of chemotherapy / SNOMED CT 8250529907 / Confirmed Hx of cervical cancer / SNOMED CT 4503120995 / Confirmed History of radiation therapy / SNOMED CT 9644689654 / Confirmed Hydronephrosis, left / SNOMED CT 14063824 / Confirmed Acute kidney injury / SNOMED CT 87492932 / Confirmed Left flank pain / SNOMED CT 672577269 / Confirmed Cervical cancer / SNOMED CT 935688516 / Confirmed Moderate protein-calorie malnutrition / SNOMED CT 854645530 / Confirmed Nausea and vomiting / SNOMED CT 78205986 / Confirmed Cancer related pain / SNOMED CT 1436971309 / Confirmed DVT prophylaxis / SNOMED CT 100682885 / Confirmed Palliative care encounter / SNOMED CT 030925755 / Confirmed Premature menopause / SNOMED CT 7736632776 / Confirmed Pyelonephritis / SNOMED CT 96857066 / Confirmed Nephrostomy status / SNOMED CT 226799019 / Confirmed Obstructive uropathy / SNOMED CT 87663340 / Confirmed, Active Problems (32) Acid reflux [...] ESBL (extended spectrum beta-lactamase) producing bacteria infection (0381635028): Onset on 02/23/2023 at 32 years. Resolved on 05/07/2023 at 32 years. ESBL (extended spectrum beta-lactamase) producing bacteria infection (7724881761): Onset on 08/09/2022 at 31 years. Resolved on 01/02/2023 at 32 years. Comments: 01/02/2023 SUMEET 10:02 JAMAL Haynes Removed ESBL disease alert from 08/2022 per infection control protocol on 01/02/23. Mass of cervix (625588279): Resolved. Chronic kidney disease, stage 3 (moderate) (9466050671): Resolved. Hydronephrosis of left kidney (55488721): Resolved. Cervicitis (835671974): Resolved. Encounter for antineoplastic chemotherapy (960071086): Resolved. Tinnitus (453113951): Resolved. Complicated UTI (urinary tract infection) (887518338): Resolved. History of COVID-19 (6356774134): Resolved. Family History: Cancer Sister COPD - Chronic obstructive pulmonary disease Mother Kidney stone Mother Asthma Mother Breast cancer Mother Hypertension Mother Heart disease Mother Substance abuse Father Alcohol abuse Father Stroke Grandparent Father Heart attack Mother Diabetes Grandparent Procedure history: Nephrostomy using fluoroscopic guidance (3800049664) on 06/16/2024 at 33 Years. Comments: 06/21/2024 11:46 Fany Beard LPN left JJ stent ([id number]) on 06/16/2024 at 33 Years. Comments: 06/21/2024 11:47 Fany Beard LPN left Nephrostomy tube (362996033) on 10/05/2023 at 32 Years. Comments: 11/19/2023 9:37 Fany Sanchez LPN left side Nephrostomy with tube drainage (05098711) in the month of 07/2023 at 32 Years. Comments: 06/13/2020 10:09 JAMAL Guaman left Nephrostomy with tube drainage (62334607) on 01/10/2021 at 30 Years. Cannulation of Portacath (014878564) in 2020 at 30 Years. Comments: 06/13/2020 10:09 JAMAL Guaman right JJ stent ([id number]) on 11/15/2020 at 29 Years. Radiation (216080290) in the month of 06/2020 at 29 Years. Comments: 06/26/2020 6:12 GINNY Burton RN Mayi A via tandems and oviod X2 Cervical biopsy (78639040) in 2019 at 29 Years. Comments: 04/12/2020 18:25 Eri Conte RN pt states she had a cervical biopsy done on 04/07/2020 at [facility] for a cervical mass Tumor cells, benign (37932494) in 2001 at 11 Years. 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 done at [facility] in [place] Social History: Social & Psychosocial Habits Alcohol [...] Patient if Patient Independent Adult: Unmarried Nutrition/Health 4Risk Assessment: No Risk 08/11/2024 Type of diet: [...] Signs (last 24 hrs) Last Charted Temp Ccjdnsna29.6 DegC (AUG 11 08:31) Heart Rate Dbkyug85 bpm (AUG 11 08:31) HWF092 mmHg (AUG 11 08:31) DBP78 mmHg (AUG 11 08:) Measurements from flowsheet : Measurements 08/11/2024 8:31 EDT Height 163.8 cm Height in inches 64.5 inch(es) Admission Weight 59.5 kg Weight Lbs 130.9 lb Weight Method Actual [place] Body Weight 55.82 kg Type of Scale [...] Weight Lbs 130.9 lb Weight Method Actual [place] Body Weight 55.82 kg Type of Scale [...] no difficulties Skin Temperature Warm Skin Description [place] Skin Integrity Intact IV Present Present Neurological [...] Person #1 We May Share PHI [place] [phone] Designated Person #1 Relationship Father Designated Person #2 We May Share PHI [phone] Designated Person #2 Relationship Sibling Additional Designated [...] No Advanced Directives Yes Advance Directive Type [place] Declaration (Living Will) Advance Directive Location Indicates [...] Method Explanation, Printed materials Preferred Spoken Language Samoan Preferred Written Language Samoan Family/Caregiver Prefer Spoken Language Samoan Family/Caregiver Prefer Written Language Samoan Teaching Evaluation Verbalizes/Nonverbally indicates understanding Safety Brochure [...] 1,000 mL mL . Assessment and Plan [place] Society of Anesthesiologists (ASA) physical status classification: [...] NAYELI BRICE DO on 08/11/2024 09:33 AM [facility]Ertpmhtz66-93-3367 Evaluation + Plan note Future Appointments Appointment Date:08/11/2024 10:00:00 AM Scheduled Provider: Location:IR Appointment Type:IR Nephrostomy Exchange Appointment Date:08/16/2024 09:00:00 AM Scheduled Provider:OLE PACE MD Location:[facility] Palliative Appointment Type:PALL OV Follow Up Future Scheduled Tests Laboratory* Clostridium difficile (PCR) 03/04/24 * Ova + Parasite Exam 03/04/24 Radiology* IR Nephrostomy Exchange 08/11/24 * IR Nephrostomy Tube Change Lt Guide 09/04/23 [facility] 09-24-2024 Interventional radiology Progress note The patient was notified via phone her next neph tube exchange in IR with anesthesia is scheduled for Wed 08/11 arrival at 0800 same day surgery. The patient was also notified her pre test appointmentis scheduled for 08/04 at 9am. The patient confirmed and verbalized understanding. Digitally Signed by JAMAL Coleman on 07/27/2024 11:32 AM [facility] HospitalRxwilgvd68-52-3283 NoteORIGINAL PROCEDURE: Nephrostogram with left percutaneous nephrostomy [...] in the usual sterile fashion. A fluoroscopic director of litigation image was obtained demonstrating the expected position [...] Sign Date: 06/14/2024 2:56:33 PM Ordering Provider: [facility]06-09-2024 Evaluation + Plan noteExtracted from: Title:IR Pre-Procedure [...] 05/24/24 and can be found in the [facility] ([facility]). Milagro Mcgarry PA-C Interventional Radiology IR Dept [id number] Available on Care Aware Future Appointments Appointment Date:06/21/2024 11:30:00 AM Scheduled Provider:OLE PACE MD Location:[facility] Appointment Type:PALL OV Follow Up Future Scheduled Tests Laboratory* Clostridium difficile (PCR) 03/04/24 * Ova + Parasite Exam 03/04/24 Radiology* IR Nephrostomy Exchange 06/09/24 * IR Nephrostomy Tube Change Lt Guide 09/04/23 [facility] 08-07-2024 Hospital Discharge instructions Patient Education 06/09/2024 11:02:59 Radiology- Nephrostomy/Nephroureteral Tube Exchange 12/26/2022(CUSTOM) CARMEL Nephrostomy/Nephroureteral Tube Exchange Discharge Instructions Interventional Radiology [facility] [address] [place] [address] The procedure that you had done today [...] the feeling of the need to urinate. Bvaw-mfc-gkdhhqf pain medication should be used for pain [...] the gauze. Supplies may be obtained at: [facility] [address] [facility] Any questions or concerns, please contact your physician or Interventional Radiology at [phone] from 8-4:30pm Friday-Friday. If you do not have a follow up appointment scheduled at the time of discharge, please call Interventional Radiology at the number listed above. 06/09/2024 11:02:47 1- [facility] General Discharge Guidelines (07/18/2023) (CUSTOM) VANESSA SAME [...] Care 06/07/2024 11:54:07 With:JULIAN ISABEL MD Address: [address] [place] [address] [place] [address]- [phone] When: Unknown Comments:Call the office to schedule a follow up appointment if not already done. [facility] 08-07-2024 Note* Cristina Simons RN: SIGN, AUTHOR, SIGN, AUTHOR, PERFORM Event Display: IR Procedure Record Authored Date: [id number] IR Procedure Record Summary Primary Physician: VIRAL MANUEL MD Finalized Date/Time: 06/09/24 09:42:49 Pt. Name: LALY NAVAS/Sex: 1990 Female Med Rec #: [id number] Physician: Financial #: [id number] Pt. Type: S Room/Bed: [facility]/A Admit/Disch: 06/09/24 05:55:56 - Institution: Allergies identified [...] RN Role Performed Primary Surgeon Assisting Surgeon Tin Flopper 1 Details Time In 06/09/24 08:45:00 06/09/24 08:45:00 06/09/24 08:18:00 Time Out 06/09/24 09:22:00 06/09/24 09:22:00 06/09/24 09:38:00 Procedure/Preference IR Nephrostomy Exchange IR Nephrostomy Exchange IR Nephrostomy Exchange Card (SN) (SN) (SN) Last Modified By: Cristina Simons RN, Tracie N RN Aller, Tracie N RN 06/09/24 09:42:01 06/09/24 09:42:01 06/09/24 09:42:01 Entry 4 Entry 5 Entry 6 Case Attendee Padmini Fairchild, DENISE Mariee WAGE AND SALARY ADMINISTRATOR-DRY CLEANING MACHINE OPERATOR HELPER Role Performed Scrub Technologist Circulating Technologist DRY CLEANING MACHINE OPERATOR HELPER Details Time In 06/09/24 08:18:00 06/09/24 08:18:00 [...] 65 mL Medication CONTRAST ISOVUE 300/30ML 10/[place] 190783 Radiology Flouroscopy Fluoroscopy Used? Yes Fluoro Dose [...] Fairchild appropriately Tech, DENISE MONROY displayed, Alcohol WAGE AND SALARY ADMINISTRATOR-DRY CLEANING MACHINE OPERATOR HELPER based prep dry, Double verification of sterility indicators complete Instrument Sterility Team Members Padmini Fairchild Verifying Sterility Tech Procedure IR Nephrostomy Exchange (SN) Last Modified By: Cristina Simosn RN 06/09/24 08:50:31 Skin Prep- IR Entry [...] Radiology - Action Plan Outcomes Met? Yes Exhibit Designer Cristina Simons RN Completing Procedure Plan Last Modified By: Cristina Simons RN 06/09/24 08:51:45 Case Comments <None> Finalized By: Cristina Simons RN Document Signatures Signed By: Cristina Simons RN 06/09/24 09:42 Cristina Simons RN 06/09/24 09:42 [facility] 08-07-2024 Summary of episode note Discharge Instructions Thank you for allowing [facility] to assist you with your healthcare needs. The following is importantdischarge information regarding your hospital visit. Your Care Team OTHER, PROVIDER NOT SPECIFIED What to do next Scheduled Follow-Up Appointments Appointment Type When With Where Contact Information StatusPALL OV Follow Up 06/21/2024 11:30 AM OLE MATUTE MD [facility] Confirmed Follow Up Appointments Follow Up with JULIAN ISABEL MD Where:[address] [facility] [place] [address]- [phone] Additional Information: Call the office to schedule [...] cervical cancer Unchanged potassium chloride (Potassium Chloride (Avx-Wqnu-Btl M20) 20 mEq oral tablet, extended release) [...] medication providers or retail pharmacies. Education Materials CARMEL Nephrostomy/Nephroureteral Tube Exchange Discharge Instructions Interventional Radiology [facility] [address] [place] [address] The procedure that you had done today [...] the feeling of the need to urinate. Jyxe-iyg-ljgjolc pain medication should be used for pain [...] the gauze. Supplies may be obtained at: [facility] [address] [facility] Any questions or concerns, please contact your physician or Interventional Radiology at [phone] from 8-4:30pm Friday-Friday. If you do not [...] to receive it can visit one of [facility] vaccine clinics. There are many vaccine clinic locations within the [facility]. For locations and available times, please visit [email or web address]/. It is important to note that some COVID mobile vaccine clinics are held outdoors and may be canceled in rainy or stormy conditions. To learn more about pediatric vaccinations (ages 5-11), we invite you to visit the [facility] webpage. https://www.[facility].org/pages/8006-Fctgs-Wpvaqablazw-Eajmhtocpx-Xeusm-Kdf stions.htmlTo learn more about the COVID-19 vaccine, we invite you to visit the CDC website for a list of frequently asked questions.https://www.cdc.gov/coronavirus/2019-ncov/vaccines/faq.html [facility] Patient Portal Access Instructions: Stay connected with your healthcare team and access your personal medical information anytime with the [facility] Patient Portal. Please follow the directions below to create your [employer] account: 1.Access the email account you provided upon registration to the hospital/physician office.2.Look for an invitation email from [facility].3.Open the email and access the invitation link: AcceptInvitation to [employer].4.Fill in the required quintero to create your account. To access your account, visit [email or web address]. Click the blue button labeled Access Patient [...] who you will allowto register on the [facility] Patient Portal for access to your information. You can also access the [facility] Patient Portal on the [employer] Anywhere joya. Simply click on Patient Portal and then log into your account. If you would like to receive a full copy of your medical records, please contact the [facility] Medical Records Department by calling [phone], Friday through Friday between 8 a.m. and [...] Call your local pharmacy or go to [email or web address] to find one close to you.3.Make use of household items: Use cat litter or old coffee grounds to dispose medications if other options arenot available. Mix your drugs with these household products, seal them in an airtight container andthrow it into the garbage. Call [facility]: [phone] to be sure your drugs can be [...] Materials Radiology- Nephrostomy/Nephroureteral Tube Exchange 12/26/2022(CUSTOM) 1- [facility] General Discharge Guidelines (07/18/2023) (CUSTOM) Medication Leaflets My discharge plan and instructions have been reviewed and explained to me and I,LALY NAVAS understand my current condition and have read and understand these discharge instructions. I have received a written copy of the plan/instructions. If I have questions, I am aware that I should contact my doctor. Patient/Wire Hanger Signature: Date/Time: Relationship to Patient: Witness Name/Signature: Date/Time: [facility]136 Note IR Procedure Record Summary Primary Physician: VIRAL MANUEL MD Finalized Date/Time: 06/09/24 09:42:49 Pt. Name: ANTONELLALALY /Sex: 1990 Female Med Rec #: [id number] Physician: Financial #: [id number] Pt. Type: S Room/Bed: [facility]6/A Admit/Disch: 06/09/24 05:55:56 - Institution: Allergies identified [...] RN Role Performed Primary Surgeon Assisting Surgeon Tin Flopper 1 Details Time In 06/09/24 08:45:00 06/09/24 08:45:00 06/09/24 08:18:00 Time Out 06/09/24 09:22:00 06/09/24 09:22:00 06/09/24 09:38:00 Procedure/Preference IR Nephrostomy Exchange IR Nephrostomy Exchange IR Nephrostomy Exchange Card (SN) (SN) (SN) Last Modified By: Cristina Simons RN, Tracie N RN Aller, Tracie N RN 06/09/24 09:42:01 06/09/24 09:42:01 06/09/24 09:42:01 Entry 4 Entry 5 Entry 6 Case Attendee Padmini Fairchild, DENISE Mariee WAGE AND SALARY ADMINISTRATOR-DRY CLEANING MACHINE OPERATOR HELPER Role Performed Scrub Technologist Circulating Technologist DRY CLEANING MACHINE OPERATOR HELPER Details Time In 06/09/24 08:18:00 06/09/24 08:18:00 [...] 65 mL Medication CONTRAST ISOVUE 300/30ML 10/CA 922819 Radiology Flouroscopy Fluoroscopy Used? Yes Fluoro Dose [...] and Cristina Simons RN, results are properly Justice, Waldemar G, labeled and Padmini Fairchild appropriately Tech, DENISE MONROY displayed, Alcohol WAGE AND SALARY ADMINISTRATOR-DRY CLEANING MACHINE OPERATOR HELPER based prep dry, Double verification of sterility [...] Radiology - Action Plan Outcomes Met? Yes Exhibit Designer Cristina Simons RN Completing Procedure Plan Last Modified By: Cristina Simons RN 06/09/24 08:51:45 Case Comments Finalized By: Cristina Simons RN Document Signatures Signed By: Cristina Simons RN 06/09/24 09:42 Cristina Simons RN 06/09/24 09:42 [facility]Kkbesvuz96-43-5190 History and physical note IR PREPROCEDURE H&P [...] 05/24/24 and can be found in the [facility] ([facility]). Milagro Mcgarry PA-C Interventional Radiology IR Dept [id number] Available on Care Aware Digitally Signed by MILAGRO MCGARRY PA-C on 06/09/2024 07:59 AM Digitally Signed by VIRAL MANUEL MD on 06/09/2024 08:34 AM [facility] HospitalHeaznibt18-58-7991 Anesthesiology Consult note Patient: LALY NAVAS Age: [...] pain, 120 tab(s), 0 Refill(s) Potassium Chloride (Fnb-Idfg-Opd M20) 20 mEq oral tablet, extended release: [...] Problem list: Medical Anxiety / SNOMED CT 61589085 / Confirmed Asthma / SNOMED CT 258094557 / Confirmed Decreased appetite / SNOMED CT 507672173 / Confirmed Dehydration / SNOMED CT 61369416 / Confirmed Port-A-Cath in place / SNOMED CT 7022905377 / Confirmed Bilateral flank pain / SNOMED CT 245647479 / Confirmed History of chemotherapy / SNOMED CT 3264585943 / Confirmed Hx of cervical cancer / SNOMED CT 4988081301 / Confirmed History of radiation therapy / SNOMED CT 7813363496 / Confirmed Hydronephrosis, left / SNOMED CT 20941954 / Confirmed Acute kidney injury / SNOMED CT 26199574 / Confirmed Left flank pain / SNOMED CT 589626123 / Confirmed Cervical cancer / SNOMED CT 526347540 / Confirmed Moderate protein-calorie malnutrition / SNOMED CT 484477741 / Confirmed Nausea and vomiting / SNOMED CT 91014788 / Confirmed Cancer related pain / SNOMED CT 3951664339 / Confirmed DVT prophylaxis / SNOMED CT 881203126 / Confirmed Palliative care encounter / SNOMED CT 060281749 / Confirmed Premature menopause / SNOMED CT 6541881087 / Confirmed Pyelonephritis / SNOMED CT 18108785 / Confirmed Nephrostomy status / SNOMED CT 895950862 / Confirmed Complicated UTI (urinary tract infection) / SNOMED CT 871686849 / Confirmed Obstructive uropathy / SNOMED CT 57645894 / Confirmed, Active Problems (28) Acute kidney [...] ESBL (extended spectrum beta-lactamase) producing bacteria infection (7110784562): Onset on 02/23/2023 at 32 years. Resolved on 05/07/2023 at 32 years. ESBL (extended spectrum beta-lactamase) producing bacteria infection (2102295997): Onset on 08/09/2022 at 31 years. Resolved on 01/02/2023 at 32 years. Comments: 01/02/2023 EST 10:02 JAMAL Haynes Removed ESBL disease alert from 08/2022 per infection control protocol on 01/02/23. Mass of cervix (860272448): Resolved. Chronic kidney disease, stage 3 (moderate) (5215183627): Resolved. Hydronephrosis of left kidney (74589587): Resolved. Cervicitis (575422440): Resolved. Encounter for antineoplastic chemotherapy (710125402): Resolved. Tinnitus (917213579): Resolved. History of COVID-19 (4087871628): Resolved. Family History: Cancer Sister COPD - Chronic obstructive pulmonary disease Mother Kidney stone Mother Asthma Mother Breast cancer Mother Hypertension Mother Heart disease Mother Substance abuse Father Alcohol abuse Father Stroke Grandparent Father Heart attack Mother Diabetes Grandparent Procedure history: Nephrostomy tube (635736179) on 10/05/2023 at 32 Years. Comments: 11/19/2023 9:37 EST - Fany Ruelas LPN left side Nephrostomy with tube drainage (57633537) in the month of 07/2023 at 32 Years. Comments: 06/13/2020 10:09 JAMAL Guaman left Nephrostomy with tube drainage (38164837) on 01/10/2021 at 30 Years. Cannulation of Portacath (140584079) in 2020 at 30 Years. Comments: 06/13/2020 10:09 JAMAL Guaman right JJ stent ([id number]) on 11/15/2020 at 29 Years. Radiation (037602285) in the month of 06/2020 at 29 Years. Comments: 06/26/2020 6:12 GINNY Burton RN Mayi A via tandems and oviod X2 Cervical biopsy (20415106) in 2019 at 29 Years. Comments: 04/12/2020 18:25 Eri Conte RN pt states she had a cervical biopsy done on 04/07/2020 at [facility] for a cervical mass Tumor cells, benign (86829778) in 2001 at 11 Years. 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 done at [facility] in [place] Social History: Social & Psychosocial Habits Alcohol [...] treatment: None Ready to change: Yes Home/Environment 06/09/2024isk Assessment: No Risk 06/09/2024 Living situation: Home/Independent [...] Signs (last 24 hrs) Last Charted Temp Ttkdlxwa32.4 DegC (JUN 09 06:46) FKH288 mmHg (JUN 09 06:46) DBPH 90 mmHg (JUN 09 06:46) BMI21.18 (JUN 09 06:48) Measurements from flowsheet : Measurements 06/09/2024 6:48 EDT Body Mass Index 21.18 kg/m2 06/09/2024 6:46 EDT Height 167.6 cm Height in inches 66 inch(es) Admission Weight 59.5 kg Weight Lbs 130.9 lb Weight Method Actual [place] Body Weight 59.26 kg Type of Scale [...] Documentation reviewed: Current records. Assessment and Plan [place] Society of Anesthesiologists (ASA) physical status classification: [...] HILDA HADDAD MD on 06/09/2024 09:02 AM [facility] HospitalHbciuwqr66-44-0891 Note. MICRO - Microbiology PROCEDURE: Blood Culture [...] Locations *1: This test was performed at: [address], [address] [place] [address] ([place])05-23-2024 Note. MICRO - Microbiology PROCEDURE: Blood Culture [...] Locations *1: This test was performed at: [address], [address] [place] [address] ([place])04-14-2024 NoteORIGINAL PROCEDURE: Percutaneous left nephrostomy tube exchange with fluoroscopy CLINICAL STATEMENT: History of cervical cancer with left hydronephrosis WOOD REPATCHER: Tadeo Leija PA-C MATERIALS: 10 Fr X [...] using 2 identifiers, confirming site and side. Maxillofacial Prosthodontist image with contrast injection demonstrates stable appearance [...] Sign Date: 04/14/2024 5:53:55 PM Ordering Provider: [facility] ([place])04-14-2024 Hospital Discharge instructions Patient Education 04/14/2024 14:01:07 Radiology- Nephrostomy/Nephroureteral Tube Exchange 12/26/2022(CUSTOM) [facility] Nephrostomy/Nephroureteral Tube Exchange Discharge Instructions Interventional Radiology [facility] [address] [place] [address] The procedure that you had done today [...] the feeling of the need to urinate. Kepg-tab-rvegdxc pain medication should be used for pain [...] the gauze. Supplies may be obtained at: [facility] [address] [facility] [address] [facility] Any questions or concerns, please contact your physician or Interventional Radiology at [phone] from 8-4:30pm Friday-Friday. If you do not [...] follow-up instructions. Follow Up Care 03/10/2024 10:15:11 With:OEL PACE MD Address: [address] [place] [address] [place] [address]- [phone] When: Unknown Comments:Follow-up as scheduled [facility] 06-12-2024 Note* Dustin Palm RN: SIGN, AUTHOR, PERFORM Event Display: IR Procedure Record Authored Date: IR Procedure Record Summary Primary Physician: Finalized Date/Time: 04/14/24 13:19:12 Pt. Name: LALY NAVAS D.O.B./Sex: 1990 Female Med Rec #: [id number] Physician: Financial #: [id number] Pt. Type: S Room/Bed: 0110/A Admit/Disch: 04/14/24 [...] Entry 3 Case Attendee TADEO LEIJA PA-C, Picking Crew SupervisorKarolina Bonner Role Performed Radiology PA/RA Scrub Technologist [...] 5 Case Attendee Dustin Palm RN, JACKSON APRN-DRY CLEANING MACHINE OPERATOR HELPER Role Performed Tin Flopper 1 DRY CLEANING MACHINE OPERATOR HELPER Details Time In 04/14/24 12:44:00 04/14/24 12:44:00 [...] Time Out Sam Junior Relevant images and AMoi Jacque M., results are properly Dustin Palm RN, labeled and BREANN BRAVO appropriately WAGE AND SALARY ADMINISTRATOR-DRY CLEANING MACHINE OPERATOR HELPER displayed, Alcohol based prep dry Instrument Sterility [...] Radiology - Action Plan Outcomes Met? Yes Exhibit Designer Dustin Palm RN Completing Procedure Plan Last Modified By: Dustin Palm RN 04/14/24 12:53:11 Case Comments <None> Finalized By: Dustin Palm RN Document Signatures Signed By: Dustin Palm RN 04/14/24 13:18 [facility] 06-12-2024 Procedure note IR Brief Post Procedure Note Preprocedure Dx: cervical cancer with hydronephrosis Post Procedure Dx: Same Procedure: LEFT nephrostomy tube exchange Anesthesia: MAC and Local EBL: Minimal Complications: None Status: Unchanged Findings: 1. Successful LEFT nephrostomy tube exchange. Plan: 1. Attached to dependent drainage bag. Full report to follow. Orders in [employer]. Tadeo Leija PA-C Interventional Radiology Pager: [phone] IR dept: [id number] Available on aBIZinaBOX Digitally Signed by TADEO LEIJA PA-C on 04/14/2024 02:50 PM [facility] HospitalUxjwygid49-52-8913 Summary of episode note Discharge Instructions Thank you for allowing [facility] to assist you with your healthcare needs. The following is importantdischarge information regarding your hospital visit. Your Care Team OTHER, PROVIDER NOT SPECIFIED What to do next Scheduled Follow-Up Appointments Appointment Type When With Where Contact Information StatusSO OV Follow Up 04/19/2024 11:00 AM EDT [facility] [address] [place] [phone] Confirmed PALL OV Follow Up 04/28/2024 11:30 AM EDT OLE PACE MD [facility] Confirmed Follow Up Appointments Follow Up with OLE PACE MD Where:[address] [place] [address] [place] [address]- [phone] Additional Information: Follow-up as scheduled Allergies Haldol [...] medication providers or retail pharmacies. Education Materials CARMEL Nephrostomy/Nephroureteral Tube Exchange Discharge Instructions Interventional Radiology [facility] [address] [place] [address] The procedure that you had done today [...] the feeling of the need to urinate. Xbtf-tdd-mhxtjjg pain medication should be used for pain [...] the gauze. Supplies may be obtained at: [facility] [address] [facility] [address] [facility] Any questions or concerns, please contact your physician or Interventional Radiology at [phone] from 8-4:30pm Friday-Friday. If you do not [...] to receive it can visit one of [facility] vaccine clinics. There are many vaccine clinic locations within the [facility]. For locations and available times, please visit [email or web address] It is important to note that some COVID mobile vaccine clinics are held outdoors and may be canceled in rainy or stormy conditions. To learn more about pediatric vaccinations (ages 5-11), we invite you to visit the [facility] webpage. [email or web address] [email or web address] learn more about the COVID-19 vaccine, we invite you to visit the CDC website for a list of frequently asked questions.https://www.cdc.gov/coronavirus/2019-ncov/vaccines/faq.html [facility] Patient Portal Access Instructions: Stay connected with your healthcare team and access your personal medical information anytime with the [facility] Patient Portal. Please follow the directions below to create your [facility] account: 1.Access the email account you provided upon registration to the hospital/physician office.2.Look for an invitation email from [facility].3.Open the email and access the invitation link: AcceptInvitation to [facility].4.Fill in the required quintero to create your account. To access your account, visit [email or web address]. Click the blue button labeled Access Patient [...] who you will allowto register on the [facility] [employer] Patient Portal for access to your information. You can also access the [facility] Patient Portal on the [facility] [employer] joya. Simply click on Patient Portal and then log into your account. If you would like to receive a full copy of your medical records, please contact the [facility] Medical Records Department by calling [phone], Friday through Friday between 8 a.m. and [...] Call your local pharmacy or go to [email or web address] to find one close to you.3.Make use of household items: Use cat litter or old coffee grounds to dispose medications if other options arenot available. Mix your drugs with these household products, seal them in an airtight container andthrow it into the garbage. Call [facility]: [phone] to be sure your drugs can be [...] Materials Radiology- Nephrostomy/Nephroureteral Tube Exchange 12/26/2022(CUSTOM) 1- [facility] General Discharge Guidelines (07/18/2023) (CUSTOM) Medication Leaflets My discharge plan and instructions have been reviewed and explained to me and I,LALY NAVAS understand my current condition and have read and understand these discharge instructions. I have received a written copy of the plan/instructions. If I have questions, I am aware that I should contact my doctor. Patient/Wire Hanger Signature: Date/Time: Relationship to Patient: Witness Name/Signature: Date/Time: [facility] HospitalDzgezxaz96-13-0359 Evaluation + Plan noteExtracted from: Title:IR Pre-Procedure [...] Ready to change: Yes. Physical Exam Vitals: Bvisfptlnxr55.2 (11:36) Systolic Blood Yacppoml871 (11:36) Diastolic Blood Buqxgghc70 (11:36) Pulse79 (11:36) KuS709 (11:36) Respiratory RateNo result General: Alert, cooperative. The remainder of the physical exam is noncontributory. Labs Anticoagulation Labs No qualifying data available. No qualifying data available. Assessment/Treatment Plan Image Guided LEFT Nephrostomy Tube Exchange with possible intervention Post Procedure Discharge Plan Patient to be discharged home. Milagro Mcgarry PA-C Interventional Radiology Pager [phone] IR Dept [id number] Available on Care Aware Future Appointments Appointment Date:04/19/2024 11:00:00 AM Scheduled Provider: Location[facility] Appointment Type:SO OV Follow Up Appointment Date:04/28/2024 11:30:00 AM Scheduled Provider:OLE PACE MD Location:[facility] Appointment Type:PALL OV Follow Up Future Scheduled Tests Laboratory* Clostridium difficile (PCR) 03/04/24 * Ova + Parasite Exam 03/04/24 Radiology* IR Nephrostomy Tube Change Lt Guide 09/04/23 [facility] 06-12-2024 Note IR Procedure Record Summary Primary Physician: Finalized Date/Time: 04/14/24 13:19:12 Pt. Name: LALY NAVAS [place] /Sex: 1990 Female Med Rec #: [id number] Physician: Financial #: [id number] Pt. Type: S Room/Bed: [facility]0/A Admit/Disch: 04/14/24 11:12:45 - Institution: Allergies identified [...] Entry 3 Case Attendee TADEO LEIJA PA-C, Rad Tech Kathy A Brooks, Jacque M. Role Performed Radiology PA/RA Scrub Technologist Circulating [...] 5 Case Attendee Dustin Palm RN, JACKSON WAGE AND SALARY ADMINISTRATOR-DRY CLEANING MACHINE OPERATOR HELPER Role Performed Tin Flopper 1 DRY CLEANING MACHINE OPERATOR HELPER Details Time In 04/14/24 12:44:00 04/14/24 12:44:00 [...] Time Out Sam Junior Relevant images and AMoi Jacque M., results are properly Dustin Palm RN, labeled and BREANN BRAVO appropriately WAGE AND SALARY ADMINISTRATOR-DRY CLEANING MACHINE OPERATOR HELPER displayed, Alcohol based prep dry Instrument Sterility [...] Radiology - Action Plan Outcomes Met? Yes Exhibit Designer Dustin Palm RN Completing Procedure Plan Last Modified By: Dustin Palm RN 04/14/24 12:53:11 Case Comments Finalized By: Dustin Palm RN Document Signatures Signed By: Dustin Palm RN 04/14/24 13:18 [facility] HospitalBznuzbir43-29-0458 Note ORIGINAL PROCEDURE: Percutaneous left nephrostomy tube exchange with fluoroscopy CLINICAL STATEMENT: History of cervical cancer with left hydronephrosis WOOD REPATCHER: Tadeo Leija PA-C MATERIALS: 10 Fr X [...] using 2 identifiers, confirming site and side. Maxillofacial Prosthodontist image with contrast injection demonstrates stable appearance [...] Sign Date: 04/14/2024 5:53:55 PM Ordering Provider: [facility]06-12-[facility]24 History and physical note Interventional Radiology Focused [...] Ready to change: Yes. Physical Exam Vitals: Bilftgvpcvl00.2 (11:36) Systolic Blood Pdijfosm067 (11:36) Diastolic Blood Retkjing98 (11:36) Pulse79 (11:36) HoJ110 (11:36) Respiratory RateNo result General: Alert, cooperative. The remainder of the physical exam is noncontributory. Labs Anticoagulation Labs No qualifying data available. No qualifying data available. Assessment/Treatment Plan Image Guided LEFT Nephrostomy Tube Exchange with possible intervention Post Procedure Discharge Plan Patient to be discharged home. Milagro Mcgarry PA-C Interventional Radiology Pager [phone] IR Dept [id number] Available on Care Aware Digitally Signed by MILAGRO MCGARRY PA-C on 04/14/2024 12:38 PM Digitally Signed by VIRAL MANUEL MD on 04/14/2024 03:28 PM [facility] HospitalFdgajtuf73-14-3064 Anesthesiology Consult note Patient: LALY NAVAS Age: [...] Problem list: Medical Anxiety / SNOMED CT 49665708 / Confirmed Asthma / SNOMED CT 928507928 / Confirmed Decreased appetite / SNOMED CT 294819536 / Confirmed Dehydration / SNOMED CT 26517690 / Confirmed Port-A-Cath in place / SNOMED CT 6630262222 / Confirmed Bilateral flank pain / SNOMED CT 685587638 / Confirmed History of chemotherapy / SNOMED CT 9868839924 / Confirmed Hx of cervical cancer / SNOMED CT 8464779085 / Confirmed History of radiation therapy / SNOMED CT 3135560044 / Confirmed Hydronephrosis, left / SNOMED CT 15798703 / Confirmed Acute kidney injury / SNOMED CT 48755076 / Confirmed Left flank pain / SNOMED CT 343625379 / Confirmed Cervical cancer / SNOMED CT 379685311 / Confirmed Moderate protein-calorie malnutrition / SNOMED CT 574546857 / Confirmed Nausea and vomiting / SNOMED CT 74069045 / Confirmed Cancer related pain / SNOMED CT 6305195088 / Confirmed DVT prophylaxis / SNOMED CT 957996230 / Confirmed Palliative care encounter / SNOMED CT 893838427 / Confirmed Premature menopause / SNOMED CT 7740109052 / Confirmed Pyelonephritis / SNOMED CT 57390979 / Confirmed Nephrostomy status / SNOMED CT 301563942 / Confirmed Complicated UTI (urinary tract infection) / SNOMED CT 620689386 / Confirmed Obstructive uropathy / SNOMED CT 53440586 / Confirmed, Active Problems (28) Acute kidney [...] ESBL (extended spectrum beta-lactamase) producing bacteria infection (3911705836): Onset on 02/23/2023 at 32 years. Resolved on 05/07/2023 at 32 years. ESBL (extended spectrum beta-lactamase) producing bacteria infection (2975344955): Onset on 08/09/2022 at 31 years. Resolved on 01/02/2023 at 32 years. Comments: 01/02/2023 SUMEET 10:02 JAMAL Haynes Removed ESBL disease alert from 08/2022 per infection control protocol on 01/02/23. Mass of cervix (076809056): Resolved. Chronic kidney disease, stage 3 (moderate) (9909701291): Resolved. Hydronephrosis of left kidney (65307695): Resolved. Cervicitis (204821012): Resolved. Encounter for antineoplastic chemotherapy (582630639): Resolved. Tinnitus (890208979): Resolved. History of COVID-19 (3778133759): Resolved. Procedure history: Nephrostomy tube (595132137) on 10/05/2023 at 32 Years. Comments: 11/19/2023 9:37 Fany Sanchez LPN left side Nephrostomy with tube drainage (59636553) in the month of 07/2023 at 32 Years. Comments: 06/13/2020 10:09 JAMAL Guaman left Nephrostomy with tube drainage (75702823) on 01/10/2021 at 30 Years. Cannulation of Portacath (573307776) in 2020 at 30 Years. Comments: 06/13/2020 10:09 EDCharlie Soliz RN Lizzy Germain right JJ stent ([id number]) on 11/15/2020 at 29 Years. Radiation (996988534) in the month of 06/2020 at 29 Years. Comments: 06/26/2020 6:12 GINNY Burton RN Mayi A via tandems and oviod X2 Cervical biopsy (80055450) in 2019 at 29 Years. Comments: 04/12/2020 18:25 Eri Conte RN pt states she had a cervical biopsy done on 04/07/2020 at [facility] for a cervical mass Tumor cells, benign (59630661) in 2001 at 11 Years. 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 done at [facility] in [place] Social History: Social & Psychosocial Habits Alcohol 4Risk Assessment: Denies Alcohol Use 03/04/2024 Use: Past [...] change: Yes Home/Environment 4Risk Assessment: No Risk 03/04/2024 Living situation: Home/Independent [...] records, Reviewed prior records. Assessment and Plan [place] Society of Anesthesiologists (ASA) physical status classification: [...] DAVID SMITH MD on 04/14/2024 01:24 PM [facility] HospitalSynbhyfx03-56-1114 NoteORIGINAL PROCEDURE: Percutaneous nephrostomy tube exchange with fluoroscopy CLINICAL STATEMENT: Left nephrostomy tube exchange, routine LATERALITY: LEFT WOOD REPATCHER: Lacey Loera PA-C MATERIALS: 10 Fr X [...] using 2 identifiers, confirming site and side. Maxillofacial Prosthodontist image with contrast injection demonstrates stable appearance [...] Sign Date: 03/04/2024 9:14:43 AM Ordering Provider: [facility] [facility] ([place])03-03-2024 Hospital Discharge instructions Patient Education 03/03/2024 14:38:37 Radiology- Nephrostomy/Nephroureteral Tube Exchange 12/26/2022(CUSTOM) CARMEL Nephrostomy/Nephroureteral Tube Exchange Discharge Instructions Interventional Radiology [facility] [address] [place] [address] The procedure that you had done today [...] the feeling of the need to urinate. Imhj-ozq-aucimhw pain medication should be used for pain [...] the gauze. Supplies may be obtained at: [facility] [address] [facility] Any questions or concerns, please contact your physician or Interventional Radiology at [phone] from 8-4:30pm Friday-Friday. If you do not have a follow up appointment scheduled at the time of discharge, please call Interventional Radiology at the number listed above. 03/03/2024 14:38:26 1- [facility] General Discharge Guidelines (07/18/2023) (CUSTOM) VANESSA SAME [...] 02/19/2024 13:58:52 With:MADELINE APARICIO MD, [facility] Address: [address] [place] [address] [facility] [place] [address]- [phone] When: Unknown Comments:Follow-up as scheduled [facility] 05-01-2024 History and physical note IR PREPROCEDURE [...] 02/04/2024 and can be found in the [facility] (PaeDae). Lacey Loera PA-C Interventional Radiology IR Dept [id number] Available on RETAIL PRO Digitally Signed by LACEY LOERA PA-C on 03/03/2024 03:54 PM [id number] Note* Cristina Simons RN: SIGN, AUTHOR, PERFORM Event Display: IR Procedure Record Authored Date: IR Procedure Record Summary Primary Physician: LACEY LOERA PA-C Finalized Date/Time: 03/03/24 13:42:51 Pt. Name: LALY NAVAS/Sex: 1990 Female Med Rec #: [id number] Physician: Financial #: [id number] Pt. Type: S Room/Bed: [facility]/A Admit/Disch: 03/03/24 10:48:31 - Institution: Allergies identified in patient's electronic medical record at time of printing on 03/03/24 Entry 1 Entry 2 Entry 3 Substance Haldol Oranges penicillin Reaction Type Allergy Allergy Allergy Last Modified By: Fnay Ruelas LPN, Kimberly V. RN Holt, Kimberly V. RN 11/19/23 09:39:23 07/21/23 10:11:02 07/21/23 10:10:45 Case Attendance- IR Entry 1 Entry 2 Entry 3 Case Attendee LACEY LOERA RYAN L Aller, Tracie N RN PA-C WAGE AND SALARY ADMINISTRATOR-DRY CLEANING MACHINE OPERATOR HELPER Role Performed Primary Surgeon DRY CLEANING MACHINE OPERATOR HELPER Tin Flopper 1 Details Time In 03/03/24 13:33:00 03/03/24 13:10:00 03/03/24 13:29:00 Time Out 03/03/24 13:39:00 03/03/24 13:46:00 03/03/24 13:46:00 Procedure/Preference IR Nephrostomy Exchange IR Nephrostomy Exchange IR Nephrostomy Exchange Card (SN) (SN) (SN) Last Modified By: Cristina Simons RN, Tracie N RN Aller, Tracie N RN 03/03/24 13:40:25 03/03/24 13:40:25 03/03/24 13:40:25 Entry 4 Entry 5 Case Attendee Padmini Fairchild, Picking Crew Supervisor Grace Tech Role Performed Scrub Technologist Circulating [...] 6 mL Medication CONTRAST ISOVUE 300/30ML 10/CA 327346 Radiology Flouroscopy Fluoroscopy Used? Yes Fluoro Dose [...] RADHA CHU RYAN L Relevant images and WAGE AND SALARY ADMINISTRATOR-Kristyn ESPINOZA, results are properly Cristina Hitchcock RN, Gurinder, labeled and Padmini Vargas Tech, appropriately Angela Picking Crew Supervisor Grace displayed, Alcohol based prep dry, Double [...] Radiology - Action Plan Outcomes Met? Yes Exhibit Designer Cristina Simons RN Completing Procedure Plan Last Modified By: Cristina Simons RN 03/03/24 13:35:19 Case Comments <None> Finalized By: Cristina Simons RN Document Signatures Signed By: Cristina Simons RN 03/03/24 13:42 [facility] 05-01-2024 Summary of episode note Discharge Instructions Thank you for allowing [facility] to assist you with your healthcare needs. The following is importantdischarge information regarding your hospital visit. What to do next Scheduled Follow-Up Appointments Appointment Type When With Where Contact InformationTelephone 03/04/2024 09:30 AM EDT OLE PACE [facility] SO OV Follow Up 04/07/2024 03:20 PM EDT [facility] [address] [place] [phone] Follow Up Appointments Follow Up with MADELINE APARICIO MD, [facility] When Why: Follow-up as scheduled Where: [address] [place] [address] [place] [phone] The Following Activity and Diet Have Been [...] medication providers or retail pharmacies. Education Materials CARMEL Nephrostomy/Nephroureteral Tube Exchange Discharge Instructions Interventional Radiology [facility] [address] [place] [address] The procedure that you had done today [...] the feeling of the need to urinate. Krlm-dur-cecvsot pain medication should be used for pain [...] may be obtained at: [facility] [address] [facility] Any questions or concerns, please contact your physician or Interventional Radiology at [phone] from 8-4:30pm Friday-Friday. If you do not [...] to receive it can visit one of [facility] vaccine clinics. There are many vaccine clinic locations within the [facility]. For locations and available times, please visit [email or web address] It is important to note that some COVID mobile vaccine clinics are held outdoors and may be canceled in rainy or stormy conditions. To learn more about pediatric vaccinations (ages 5-11), we invite you to visit the [facility] webpage. https://www.[employer].org/pages/4714-Wbbzd-Pmwibvhblzr-Uzmmpyglti-Njhvb-Agk stions.htmlTo learn more about the COVID-19 vaccine, we invite you to visit the CDC website for a list of frequently asked questions.https://www.cdc.gov/coronavirus/2019-ncov/vaccines/faq.html [facility] Patient Portal Access Instructions: Stay connected with your healthcare team and access your personal medical information anytime with the [facility] Patient Portal. Please follow the directions below to create your [facility] account: 1.Access the email account you provided upon registration to the hospital/physician office.2.Look for an invitation email from [facility].3.Open the email and access the invitation link: AcceptInvitation to [facility].4.Fill in the required quintero to create your account. To access your account, visit [employer]/Newslabst. Click the blue button labeled Access Patient [...] who you will allowto register on the [facility] for access to your information. You can also access the [facility] on the [facility] joya. Simply click on Patient Portal and then log into your account. If you would like to receive a full copy of your medical records, please contact the [facility] Medical Records Department by calling [phone], Friday through Friday between 8 a.m. and [...] Call your local pharmacy or go to [email or web address] to find one close to you.3.Make use of household items: Use cat litter or old coffee grounds to dispose medications if other options arenot available. Mix your drugs with these household products, seal them in an airtight container andthrow it into the garbage. Call [facility]: [phone] to be sure your drugs can be [...] Materials Radiology- Nephrostomy/Nephroureteral Tube Exchange 12/26/2022(CUSTOM) 1- [facility] General Discharge Guidelines (07/18/2023) (CUSTOM) Medication Leaflets My discharge plan and instructions have been reviewed and explained to me and I,LALY NAVAS understand my current condition and have read and understand these discharge instructions. I have received a written copy of the plan/instructions. If I have questions, I am aware that I should contact my doctor. Patient/Wire Hanger Signature: Date/Time: Relationship to Patient: Witness Name/Signature: Date/Time: [id number] Evaluation + Plan noteExtracted from: Title:Preprocedure HP [...] 02/04/2024 and can be found in the [facility] Records (PaeDae). Lacey Loera PA-C Interventional Radiology IR Dept [id number] Available on RETAIL PRO Future Appointments Appointment Date:03/04/2024 09:30:00 AM Scheduled Provider:OLE PACE MD Location:[facility] Appointment Type:Telephone Appointment Date:04/07/2024 03:20:00 PM Scheduled Provider: Location:[facility] Appointment Type:SO OV Follow Up Future Scheduled Tests Radiology* IR Nephrostomy Tube Change Lt Guide 09/04/23 [facility] 05-01-2024 Note IR Procedure Record Summary Primary Physician: LACEY LOERA PA-C Finalized Date/Time: 03/03/24 13:42:51 Pt. Name: LALY NAVAS Austen Chapman./Sex: 1990 Female Med Rec #: [id number] Physician: Financial #: [id number] Pt. Type: S Room/Bed: [facility]/A Admit/Disch: 03/03/24 10:48:31 - Institution: Allergies identified [...] RYAN L Aller, Tracie N RN PA-C WAGE AND SALARY ADMINISTRATOR-DRY CLEANING MACHINE OPERATOR HELPER Role Performed Primary Surgeon DRY CLEANING MACHINE OPERATOR HELPER Tin Flopper 1 Details Time In 03/03/24 13:33:00 03/03/24 13:10:00 03/03/24 13:29:00 Time Out 03/03/24 13:39:00 03/03/24 13:46:00 03/03/24 13:46:00 Procedure/Preference IR Nephrostomy Exchange IR Nephrostomy Exchange IR Nephrostomy Exchange Card (SN) (SN) (SN) Last Modified By: Cristina Simons RN, Tracie N RN Aller, Tracie N RN 03/03/24 13:40:25 03/03/24 13:40:25 03/03/24 13:40:25 Entry 4 Entry 5 Case Attendee Padmini Fairchild, Picking Crew Supervisor Grace Tech Role Performed Scrub Technologist Circulating [...] 6 mL Medication CONTRAST ISOVUE 300/30ML 10/CA 252305 Radiology Flouroscopy Fluoroscopy Used? Yes Fluoro Dose [...] Out KIMBERLEY, CESAR GARCIA Relevant images and WAGE AND SALARY ADMINISTRATOR-Kristyn ESPINOZA, results are properly Cristina Hitchcock RN, Gurinder, johnny and Padmini Vargas Tech, appropriately Angela Picking Crew Supervisor Grace displayed, Alcohol based prep dry, Double [...] Radiology - Action Plan Outcomes Met? Yes Exhibit Designer Cristina Simons RN Completing Procedure Plan Last Modified By: Cristina Simons RN 03/03/24 13:35:19 Case Comments Finalized By: Cristina Simons RN Document Signatures Signed By: Cristina Simons RN 03/03/24 13:42 [facility] [id number] Anesthesiology Consult note Patient: LALY NAVAS Age: [...] Problem list: Medical Anxiety / SNOMED CT 65128302 / Confirmed Asthma / SNOMED CT 290689616 / Confirmed Decreased appetite / SNOMED CT 816130146 / Confirmed Dehydration / SNOMED CT 46921696 / Confirmed Port-A-Cath in place / SNOMED CT 2918064217 / Confirmed Bilateral flank pain / SNOMED CT 048716507 / Confirmed History of chemotherapy / SNOMED CT 4815514107 / Confirmed Hx of cervical cancer / SNOMED CT 4393003865 / Confirmed History of radiation therapy / SNOMED CT 4667191631 / Confirmed Hydronephrosis, left / SNOMED CT 56492648 / Confirmed Acute kidney injury / SNOMED CT 25415078 / Confirmed Left flank pain / SNOMED CT 051012168 / Confirmed Cervical cancer / SNOMED CT 931095877 / Confirmed Moderate protein-calorie malnutrition / SNOMED CT 936639606 / Confirmed Nausea and vomiting / SNOMED CT 90038996 / Confirmed Cancer related pain / SNOMED CT 5273780926 / Confirmed DVT prophylaxis / SNOMED CT 660516021 / Confirmed Palliative care encounter / SNOMED CT 909581714 / Confirmed Premature menopause / SNOMED CT 8213565524 / Confirmed Pyelonephritis / SNOMED CT 18546344 / Confirmed Nephrostomy status / SNOMED CT 149024533 / Confirmed Complicated UTI (urinary tract infection) / SNOMED CT 638827588 / Confirmed Obstructive uropathy / SNOMED CT 86479134 / Confirmed, Active Problems (28) Acute kidney [...] ESBL (extended spectrum beta-lactamase) producing bacteria infection (5108367687): Onset on 02/23/2023 at 32 years. Resolved on 05/07/2023 at 32 years. ESBL (extended spectrum beta-lactamase) producing bacteria infection (8409416228): Onset on 08/09/2022 at 31 years. Resolved on 01/02/2023 at 32 years. Comments: 01/02/2023 EST 10:02 JAMAL Haynes Removed ESBL disease alert from 08/2022 per infection control protocol on 01/02/23. Mass of cervix (017115453): Resolved. Chronic kidney disease, stage 3 (moderate) (3108634122): Resolved. Hydronephrosis of left kidney (79905565): Resolved. Cervicitis (726976019): Resolved. Encounter for antineoplastic chemotherapy (744711292): Resolved. Tinnitus (139275245): Resolved. History of COVID-19 (0206411255): Resolved. Family History: Cancer Sister COPD - Chronic obstructive pulmonary disease Mother Kidney stone Mother Asthma Mother Breast cancer Mother Hypertension Mother Heart disease Mother Substance abuse Father Alcohol abuse Father Stroke Grandparent Father Heart attack Mother Diabetes Grandparent Procedure history: Nephrostomy tube (287621900) on 10/05/2023 at 32 Years. Comments: 11/19/2023 9:37 Fany Sanchez LPN left side Nephrostomy with tube drainage (63387121) in the month of 07/2023 at 32 Years. Comments: 06/13/2020 10:09 JAMAL Guaman left Nephrostomy with tube drainage (89108861) on 01/10/2021 at 30 Years. Cannulation of Portacath (162411563) in 2020 at 30 Years. Comments: 06/13/2020 10:09 JAMAL Guaman right JJ stent (6267869433) on 11/15/2020 at 29 Years. Radiation (017055699) in the month of 06/2020 at 29 Years. Comments: 06/26/2020 6:12 GINNY Burton RN Mayi A via tandems and oviod X2 Cervical biopsy (96593497) in 2019 at 29 Years. Comments: 04/12/2020 18:25 Eri Conte RN pt states she had a cervical biopsy done on 04/07/2020 at [facility] for a cervical mass Tumor cells, benign (59906663) in 2001 at 11 Years. 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 done at [facility] in [place] Social History Social & Psychosocial Habits Alcohol 03/03/2024 Assessment: Denies Alcohol Use 03/03/2024 Use: Past Type: Beer Frequency: 1-2 times per week Employment/School 02/04/2024 Status: Employed Substance Abuse 03/03/2024 Use: Never 03/03/2024 Assessment: Denies Substance Abuse Tobacco 03/03/2024 Tobacco [...] treatment: None Ready to change: Yes Home/Environment 03/03/2024 Assessment: No Risk 03/03/2024 Domestic Concerns None Living situation: Home/Independent Safe place to go: Yes Lives In Mobile home Current Home Treatments None Special Services and Community Resources None Financial concerns: No Marital Status of Patient if Patient Independent Adult: Unmarried Nutrition/Health 03/03/2024 Type of diet: Regular Appetite Fair Eating Difficulties None Caffeine intake amount: 1 can pop per day 03/03/2024 Assessment: No Risk 03/03/2024 Type of diet: [...] mmHg Diastolic Blood Pressure Non-Invasive 97 mmHg [place] Vital Signs(last 24 hrs) Last Charted KEG435 mmHg (MARCH 03 11:18) DBPH 97mmHg (MARCH 03 11:18) Measurements from flowsheet : Measurements 03/03/2024 11:18 EDT Height 167.6 cm Height in inches 66 inch(es) Admission Weight 59.5 kg Weight Lbs 130.9 lb Weight Method Actual [place] Body Weight 59.26 kg Type of Scale [...] Musculoskeletal No tenderness. Integumentary: Intact, Warm, Dry, [place]. Neurologic: Alert, Oriented. Review / Management Results review: No qualifying data available , Lab results 03/03/2024 11:22 EDT SN - Preop - CTm Pt Ready for OR/Proced 03/03/2024 11:21 03/03/2024 11:21 EDT Individuals Taught Patient Learning Readiness Willing to learn Barriers to Learning None evident Teaching Method Explanation, Printed materials Preferred Spoken Language Samoan Preferred Written Language Samoan General Infection Prevention Strategies Hand hygiene Surgical Site Infection Prevention SSI FAQ provided Infection Prevention Teaching Evaluation Verbalizes/Nonverbally indicates understanding Pre Procedure/Surgery Education Appropriate expectations, Bring glasses, hearing aids, contact lenscase, Date/Time of procedure/surgery, Hospital gown requirement worn to OR, Leave valuables, jewelry, wedding ring at home, Meds to take or hold, NPO, Responsible mobile lounge driver or operator for discharge, Surgical skin prep Procedure/Surgical Teaching [...] Weight Lbs 130.9 lb Weight Method Actual [place] Body Weight 59.26 kg Type of Scale [...] Quadrants Present Skin Temperature Warm Skin Description [place], Normal for ethnicity, Dry Skin Integrity Intact [...] Jewelry removed Belongings At Bedside Cell phone, Instrument Repair Specialist, Pants, Rings, Shirt, Shoes, Undergarments Last Fluid Intake 03/02/2024 23:30 Last Food Intake 03/02/2024 19:00 Last Void 03/03/2024 11:18 03/03/2024 11:14 EDT SN - Preop - CTm Pt in SDS Room 03/03/2024 11:13 03/03/2024 11:14 EDT Designated Person #1 We May Share PHI Designated Person #1 We May Share PHI Designated Person #1 Relationship Sibling Designated Person #2 We May Share PHI [phone] Designated Person #2 Relationship Sibling Additional Designated Person Share PHI Densie Padronjamanaty Privacy Restrictions Requested None Status No, per [...] evident Teaching Method Demonstration Preferred Spoken Language Samoan Preferred Written Language Samoan Teaching Evaluation Verbalizes/Nonverbally indicates understanding Safety Brochure Information Reviewed Yes [facility] Carcamo Video Viewed Previously viewed Information Given by [...] Day Patient History . Assessment and Plan [place] Society of Anesthesiologists (ASA) physical status classification: [...] wishes to proceed with anesthesia. neg [facility] . Digitally Signed by MIRANDA ARMENDARIZ on 03/03/2024 12:57 PM Digitally Signed by NAYELI BRICE DO on 03/03/2024 01:07 PM [id number] NoteORIGINAL PROCEDURE: Percutaneous nephrostomy tube exchange with fluoroscopy CLINICAL STATEMENT: Patient with cervical cancer and left hydronephrosis managed with left nephrostomy tube LATERALITY: Left WOOD REPATCHER: Lacey Loera PA-C MATERIALS: 10 Fr X [...] using 2 identifiers, confirming site and side. Maxillofacial Prosthodontist image with contrast injection demonstrates stable appearance [...] Sign Date: 01/23/2024 12:41:56 PM Ordering Provider: [facility] ([place])01-21-2024 Hospital Discharge instructions Patient Education 01/21/2024 14:24:03 1-[facility] Discharge Instructions Template (08/2018) VANESSA SAME DAY [...] us better serve our patients. Form: 1522 (11597) R: 02/0901/21/2024 14:16:54 Radiology- Nephrostomy/Nephroureteral Tube Exchange 12/26/2022(CUSTOM) CARMEL Nephrostomy/Nephroureteral Tube Exchange Discharge Instructions Interventional Radiology [facility] [address] [place] [address] The procedure that you had done today [...] the feeling of the need to urinate. Kyms-cvt-jeqdvjx pain medication should be used for pain [...] the gauze. Supplies may be obtained at: [facility] [address] [facility] Any questions or concerns, please contact your physician or Interventional Radiology at [phone] from 8-4:30pm Friday-Friday. If you do not have a follow up appointment scheduled at the time of discharge, please call Interventional Radiology at the number listed above. Follow Up Care 01/13/2024 12:19:12 With:MADELINE APARICIO MD, [facility] Address: [address] [place] [address] [facility] [place] [phone] When: Unknown Comments:Follow-up with Dr. Aparicio as needed. [facility] 03-20-2024 Note* Alicia Jean RN: SIGN, AUTHOR, SIGN, AUTHOR, PERFORM Event Display: IR Procedure Record Authored Date: [id number] IR Procedure Record Summary Primary Physician: Finalized Date/Time: 01/21/24 13:58:22 Pt. Name: LALY NAVAS Austen /Sex: 1990 Female Med Rec #: [id number] Physician: Financial #: [id number] Pt. Type: S Room/Bed: [facility]/A Admit/Disch: 01/21/24 11:00:42 - Institution: Allergies identified [...] LOERA ANTHONY J Beans, Aaron RN PA-C WAGE AND SALARY ADMINISTRATOR-DRY CLEANING MACHINE OPERATOR HELPER Role Performed Radiology PA/RA Anesthesiologist Tin Flopper 1 Details Time In 01/21/24 13:08:00 01/21/24 [...] Colten G Craemer, Alexis Tech Role Performed Tin Flopper 1 Scrub Technologist Circulating Technologist Details Time [...] mL Medication OMNIPAQUE 350 50ML 10/PK Y-[address] [facility] [id number] Radiology Flouroscopy Fluoroscopy Used? Yes Fluoro Dose (mGy) 9.52 Fluoro Time 0.8 minutes Radiology Local Local Used? Yes Local Type: lido 2 % Local Dose 8cc Radiology Procedure Site Site/Location Left flank Site Condition No complications Suture 2.0 Ethibond Suture Dressing Type Tagaderm, Gauze sponge 4 X 4 Technologist Notes Left neph exchange using 10F x 35cm M-Drain lot # [id number] Last Modified By: Dustin Palm RN 01/21/24 [...] BALDOMERO CHU ANTHONY J Relevant images and WAGE AND SALARY ADMINISTRATOR-DRY CLEANING MACHINE OPERATOR HELPER, Dustin Palm results are properly RN, Alicia Jean labeled and RN, Waldemar Winters, appropriately LamineemerLorenzo Tech displayed, Alcohol based prep dry, Double [...] Radiology - Action Plan Outcomes Met? Yes Exhibit Designer Dustin Palm RN Completing Procedure Plan Last Modified By: Dustin Palm RN 01/21/24 13:32:48 Case Comments <None> Finalized By: Alicia Jean RN Document Signatures Signed By: Alicia Jean RN 01/21/24 13:57 Alicia Jean RN 01/21/24 13:58 [facility] 03-20-2024 Summary of episode note Discharge Instructions Thank you for allowing [facility] to assist you with your healthcare needs. The following is importantdischarge information regarding your hospital visit. Your Care Team PHYSICIAN, NONE What to do next Scheduled Follow-Up Appointments Appointment Type When With Where Contact InformationPALL OV Follow Up 02/03/2024 10:30 AM OLE MATUTE MD Palliative Care SO OV Follow Up 04/07/2024 03:20 PM BRITTNI INFANTE APRN-TECHNICAL PROGRAM MANAGER [facility] [address] [place] [phone] Follow Up Appointments Follow Up with MADELINE APARICIO MD, [facility] When Why: Follow-up with Dr. Aparicio as needed. Where: [address] [place] [address] [place] [address]- [phone] The Following Activity and Diet Have Been [...] us better serve our patients. Form: 1522 (65052) R: 02/09 CARMEL Nephrostomy/Nephroureteral Tube Exchange Discharge Instructions Interventional Radiology [facility] [address] [place] [address] The procedure that you had done today [...] the feeling of the need to urinate. Lixe-cei-wwitvby pain medication should be used for pain [...] the gauze. Supplies may be obtained at: [facility] [address] [facility] Any questions or concerns, please contact your physician or Interventional Radiology at [phone] from 8-4:30pm Friday-Friday. If you do not have a follow up appointment scheduled at the time of discharge, please call Interventional Radiology at the number listed above. Additional Information VACCINATE! IT SAVES LIVES! Members of the community who have not yet received the COVID-19 vaccine and would like to receive it can visit one of [facility] vaccine clinics. There are many vaccine clinic locations within the [facility]. For locations and available times, please visit [email or web address] It is important to note that some COVID mobile vaccine clinics are held outdoors and may be canceled in rainy or stormy conditions. To learn more about pediatric vaccinations (ages 5-11), we invite you to visit the [facility] webpage. https://www.[facility].org/pages/1899-Bohra-Rafuuzcpreh-Gwoqwykgtv-Eiica-Qtv stions.htmlTo learn more about the COVID-19 vaccine, we invite you to visit the CDC website for a list of frequently asked questions.https://www.cdc.gov/coronavirus/2019-ncov/vaccines/faq.html [facility] Patient Portal Access Instructions: Stay connected with your healthcare team and access your personal medical information anytime with the [facility] Patient Portal. Please follow the directions below to create your [facility] account: 1.Access the email account you provided upon registration to the hospital/physician office.2.Look for an invitation email from [facility].3.Open the email and access the invitation link: AcceptInvitation to [facility].4.Fill in the required quintero to create your account. To access your account, visit [employer]/AteoOneChart. Click the blue button labeled Access Patient Portal and then log in with the username and password that you created in the steps above. You will be able to view your test results, lab results, a summary of your visits, upcoming appointments and more. There is also a convenient messaging option where you can send secure messages to your p ETHERAvider. In addition, you will have the ability to download any documents or summaries to your computer and/or send the information securely to a physician. Remember that your healthcare information is confidential, so carefully consider who you will allowto register on the [facility] Patient Portal for access to your information. You can also access the [facility] Patient Portal on the [facility] joya. Simply click on Patient Portal and then log into your account. If you would like to receive a full copy of your medical records, please contact the [facility] Medical Records Department by calling [phone], Friday through Friday between 8 a.m. and [...] Call your local pharmacy or go to [email or web address] to find one close to you.3.Make use of household items: Use cat litter or old coffee grounds to dispose medications if other options arenot available. Mix your drugs with these household products, seal them in an airtight container andthrow it into the garbage. Call [facility]: [phone] to be sure your drugs can be [...] aware that I should contact my doctor. Patient/Wire Hanger Signature: Date/Time: Relationship to Patient: Witness Name/Signature: Date/Time: [facility] HospitalAkfjgbxt84-32-0075 Evaluation + Plan noteExtracted from: Title:IR Pre-Procedure [...] 01/06/2024 and can be found in the [facility] ([facility]). Tadeo Leija PA-C Interventional Radiology Pager: [phone] IR dept: x [phone] Available on aBIZinaBOX Future Appointments Appointment Date:02/03/2024 10:30:00 AM Scheduled Provider:OLE PACE MD Location:[facility] Palliative Appointment Type:PALL OV Follow Up Appointment Date:04/07/2024 03:20:00 PM Scheduled Provider:BRITTNI LU APRN-TECHNICAL PROGRAM MANAGER Location:[facility] Appointment Type:SO OV Follow Up Future Scheduled Tests Laboratory* Urinalysis 02/14/23 Radiology* IR Neph Cath-Neph Ureter W/Guide Left 06/30/23 * IR Nephrostomy Tube Change Lt Guide 09/04/23 [facility] 03-20-2024 Note IR Procedure Record Summary Primary Physician: Finalized Date/Time: 01/21/24 13:58:22 Pt. Name: LALY NAVAS Austen Chapman./Sex: 1990 Female Med Rec #: [id number] Physician: Financial #: [id number] Pt. Type: S Room/Bed: [facility]/A Admit/Disch: 01/21/24 11:00:42 - Institution: Allergies identified [...] LOERA ANTHONY J Beans, Aaron RN PA-C WAGE AND SALARY ADMINISTRATOR-DRY CLEANING MACHINE OPERATOR HELPER Role Performed Radiology PA/RA Anesthesiologist Tin Flopper 1 Details Time In 01/21/24 13:08:00 01/21/24 [...] Colten G Craemer, Alexis Tech Role Performed Tin Flopper 1 Scrub Technologist Circulating Technologist Details Time [...] mL Medication OMNIPAQUE 350 50ML 10/PK Y-[address] [facility] [id number] Radiology Flouroscopy Fluoroscopy Used? Yes Fluoro Dose (mGy) 9.52 Fluoro Time 0.8 minutes Radiology Local Local Used? Yes Local Type: lido 2 % Local Dose 8cc Radiology Procedure Site Site/Location Left flank Site Condition No complications Suture 2.0 Ethibond Suture Dressing Type Tagaderm, Gauze sponge 4 X 4 Technologist Notes Left neph exchange using 10F x 35cm M-Drain lot # [id number] Last Modified By: Dustin Palm RN 01/21/24 [...] Out KIMBERLEY, MARVIN ALEXANDRE Relevant images and WAGE AND SALARY ADMINISTRATOR-Néstor ESPINOZA Aaron results are properly RN, Alicia Jean labeled and RNSingh Colten G, appropriately Craemer, Lorenzo Tech displayed, Alcohol based [...] Radiology - Action Plan Outcomes Met? Yes Exhibit Designer Dustin Palm RN Completing Procedure Plan Last Modified By: Dustin Palm RN 01/21/24 13:32:48 Case Comments Finalized By: Alicia Jean RN Document Signatures Signed By: Alicia Jean RN 01/21/24 13:57 Alicia Jean RN 01/21/24 13:58 [facility] [id number] Anesthesiology Consult note Patient: LALY NAVAS Age: [...] Problem list: Medical Anxiety / SNOMED CT 66236640 / Confirmed Asthma / SNOMED CT 338635932 / Confirmed Decreased appetite / SNOMED CT 973619312 / Confirmed Dehydration / SNOMED CT 74441114 / Confirmed Port-A-Cath in place / SNOMED CT 0887323360 / Confirmed Bilateral flank pain / SNOMED CT 703397664 / Confirmed History of chemotherapy / SNOMED CT 5864451866 / Confirmed Hx of cervical cancer / SNOMED CT 1069340590 / Confirmed History of radiation therapy / SNOMED CT 9481074509 / Confirmed Hydronephrosis, left / SNOMED CT 56557405 / Confirmed Acute kidney injury / SNOMED CT 64540703 / Confirmed Left flank pain / SNOMED CT 680022551 / Confirmed Cervical cancer / SNOMED CT 089207628 / Confirmed Moderate protein-calorie malnutrition / SNOMED CT 765774175 / Confirmed Nausea and vomiting / SNOMED CT 87813051 / Confirmed Cancer related pain / SNOMED CT 6951679003 / Confirmed DVT prophylaxis / SNOMED CT 295546085 / Confirmed Palliative care encounter / SNOMED CT 048187948 / Confirmed Premature menopause / SNOMED CT 3796974051 / Confirmed Pyelonephritis / SNOMED CT 35677986 / Confirmed Nephrostomy status / SNOMED CT 995113466 / Confirmed Complicated UTI (urinary tract infection) / SNOMED CT 144477983 / Confirmed Obstructive uropathy / SNOMED CT 18698206 / Confirmed, Active Problems (28) Acute kidney [...] ESBL (extended spectrum beta-lactamase) producing bacteria infection (6263820074): Onset on 02/23/2023 at 32 years. Resolved on 05/07/2023 at 32 years. ESBL (extended spectrum beta-lactamase) producing bacteria infection (0284461351): Onset on 08/09/2022 at 31 years. Resolved on 01/02/2023 at 32 years. Comments: 01/02/2023 EST 10:02 JAMAL Haynes Removed ESBL disease alert from 08/2022 per infection control protocol on 01/02/23. Mass of cervix (569137255): Resolved. Chronic kidney disease, stage 3 (moderate) (9470881752): Resolved. Hydronephrosis of left kidney (27237362): Resolved. Cervicitis (675941550): Resolved. Encounter for antineoplastic chemotherapy (370547206): Resolved. Tinnitus (254754301): Resolved. History of COVID-19 (4748308452): Resolved. Procedure history: Nephrostomy tube (358713014) on 10/05/2023 at 32 Years. Comments: 11/19/2023 9:37 Fany Sanchez LPN left side Nephrostomy with tube drainage (20579058) in the month of 07/2023 at 32 Years. Comments: 06/13/2020 10:09 JAMAL Guaman left Nephrostomy with tube drainage (46976564) on 01/10/2021 at 30 Years. Cannulation of Portacath (744674925) in 2020 at 30 Years. Comments: 06/13/2020 10:09 JAMAL Guaman right JJ stent ([id number]) on 11/15/2020 at 29 Years. Radiation (660094739) in the month of 06/2020 at 29 Years. Comments: 06/26/2020 6:12 JAMAL Braswell A via tandems and oviod X2 Cervical biopsy (52797052) in 2019 at 29 Years. Comments: 04/12/2020 18:25 Eri Conte RN pt states she had a cervical biopsy done on 04/07/2020 at [facility] for a cervical mass Tumor cells, benign (25995396) in 2001 at 11 Years. 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 done at [facility] in [place] Social History Social & Psychosocial Habits Alcohol 4Risk Assessment: Denies Alcohol Use 01/06/2024 Use: Past [...] change: Yes Home/Environment 4Risk Assessment: No Risk 01/06/2024 Domestic Concerns None [...] pop per day 4Risk Assessment: No Risk 01/06/2024 Type of diet: [...] Examination Vital Signs(last 24 hrs) Last Charted PWQ962 mmHg (JAN 20 11:50) DBP84 mmHg (JAN 20 11:50) Measurements from flowsheet : Measurements 01/21/2024 11:50 EDT Height 167.6 cm Height in inches 66 inch(es) Admission Weight 58.2 kg Weight Lbs 128 lb [place] Body Weight 59.26 kg Admission Body Mass [...] Documentation reviewed: Current records. Assessment and Plan [place] Society of Anesthesiologists (ASA) physical status classification: [...] HILDA HADDAD MD on 01/21/2024 01:09 PM [facility] [id number] History and physical note IR PREPROCEDURE H&P [...] 01/06/2024 and can be found in the [facility] ([facility]). Tadeo Leija PA-C Interventional Radiology Pager: [phone] IR dept: x [phone] Available on aBIZinaBOX Digitally Signed by TADEO LEIJA PA-C on 01/21/2024 01:01 PM Digitally Signed by VIRAL MANUEL MD on 01/21/2024 09:32 PM [facility] HospitalMydlcmnr58-42-2894 Interventional radiology Progress note Lizy had called today and said she is not feeling well and to cancel her neph tube change with anesthesia. I called anesthesia and let them know and transferred her to [place] for rescheduling. Digitally Signed by Patti Ching on 01/14/2024 08:59 AM [facility] HospitalVfmxaltr28-47-5056 NoteORIGINAL PROCEDURE: IR NEPHROSTOMY TUBE CHANGE MODERATE [...] 6:36:53 PM Ordering Provider: BRITTNI [facility] ([place]12-03-2023 Hospital Discharge instructions Patient Education 12/03/2023 12:30:02 Radiology- Nephrostomy/Nephroureteral Tube Exchange 12/26/2022(CUSTOM) CARMEL Nephrostomy/Nephroureteral Tube Exchange Discharge Instructions Interventional Radiology [facility] [address] [address] The procedure that you had done today [...] the feeling of the need to urinate. Vtpw-xol-pcccogf pain medication should be used for pain [...] the gauze. Supplies [facility] be obtained at: [facility] [address] [facility] [address] [facility] Any questions or concerns, please contact your physician or Interventional Radiology at [phone] from 8-4:30pm Friday-Friday. If you do not have a follow up appointment scheduled at the time of discharge, please call Interventional Radiology at the number listed above. Follow Up Care 10/14/2023 17:16:46 With:RITA YEH MD, [facility] Address: [address] [place] [address] [place] [address]- [phone] When: Unknown Comments:Follow-up as scheduled. Schedule appointment as soon as possible [facility] 01-31-2024 Evaluation + Plan noteExtracted from: Title:IR [...] 11/19/2023 and can be found in the [facility] ([facility]). Tadeo Leija PA-C Interventional Radiology Pager: [phone] IR dept: x [phone] Available on [facility] Future Appointments Appointment Date:12/08/2023 03:00:00 PM Scheduled Provider:OLE PACE MD Location:[facility] Palliative Appointment Type:PALL OV Follow Up Appointment Date:12/08/2023 03:40:00 PM Scheduled Provider:BRITTNI LU Location:[facility] Appointment Type:SO OV Appointment Date:01/14/2024 10:00:00 AM Scheduled Provider: Location:IR Appointment Type:IR Nephrostomy Exchange Future Scheduled Tests Laboratory* Urinalysis 02/14/23 Radiology* IR Nephrostomy Exchange 01/14/24 * IR Neph Cath-Neph Ureter W/Guide Left 06/30/23 * IR Nephrostomy Tube Change Lt Guide 09/04/23 [facility] 01-31-2024 Note* Lexi Marcano RN: SIGN, AUTHOR, SIGN, AUTHOR, PERFORM Event Display: IR Procedure Record Authored Date: [id number] IR Procedure Record Summary Primary Physician: RITA YEH MD Finalized Date/Time: 12/03/23 11:48:38 Pt. Name: LALY NAVAS Austen /Sex: 1990 Female Med Rec #: [id number] Physician: Financial #: [id number] Pt. Type: S Room/Bed: [facility]/A Admit/Disch: 12/03/23 09:22:31 - Institution: Allergies identified [...] Attendee RITA YEH MD, Jacque M. Herrick, [facility] Leatha Boyce Role Performed Primary Surgeon Scrub Technologist Circulating [...] Case Attendee Lexi Marcano RN Role Performed Tin Flopper 1 Details Time In 12/03/23 11:18:00 Time [...] mL Medication OMNIPAQUE 300 50ML 10/PK Y-[address] [facility] [phone] Radiology Flouroscopy Fluoroscopy Used? Yes Fluoro Dose (mGy) 5.39 Fluoro Time 1.6 min Radiology Local Local Used? Yes Local Type: lidocaine 2% Local Dose 4cc Radiology Procedure Site Site/Location left flank Site Condition No complications Dressing Type Bioclusive 4 X 5, Gauze Technologist Notes 10f x 35cm m-drain sponge 4 X 4 lot#[id number] Last Modified By: Lexi Marcano RN 12/03/23 [...] Radiology - Action Plan Outcomes Met? Yes Exhibit Designer Lexi Marcano RN Completing Procedure Plan Last Modified By: Lexi Marcano RN 12/03/23 11:33:21 Case Comments <None> Finalized By: Lexi Marcano RN Document Signatures Signed By: Lexi Marcano RN 12/03/23 11:48 Lexi Marcano RN 12/03/23 11:48 [facility] 01-31-2024 Summary of episode note Discharge Instructions Thank you for allowing [facility] to assist you with your healthcare needs. The following is importantdischarge information regarding your hospital visit. Your Care Team PHYSICIAN, NONE What to do next Scheduled Follow-Up Appointments Appointment Type When With Where Contact InformationPALL OV Follow Up 12/08/2023 03:00 PM OLE MCNEIL MD [facility] SO OV 12/08/2023 03:40 PM BRITTNI COLEMAN WAGE AND SALARY ADMINISTRATOR-TECHNICAL PROGRAM MANAGER [facility] [address] [place] [phone] IR Nephrostomy Exchange 01/14/2024 10:00 AM EDT IR Follow Up Appointments Follow Up with RITA YEH MD, [facility] When Why: Follow-up as scheduled. Schedule appointment as soon as possible Where: [address] [place] [address] [place] [address]- [phone] The Following Activity and Diet Have Been [...] medication providers or retail pharmacies. Education Materials CARMEL Nephrostomy/Nephroureteral Tube Exchange Discharge Instructions Interventional Radiology [facility] [address] [place] [address] The procedure that you had done today [...] the feeling of the need to urinate. Lgiy-cxv-ghsljar pain medication should be used for pain [...] the gauze. Supplies may be obtained at: [facility] [address] [facility] [address] [facility] Any questions or concerns, please contact your physician or Interventional Radiology at [phone] from 8-4:30pm Friday-Friday. If you do not have a follow up appointment scheduled at the time of discharge, please call Interventional Radiology at the number listed above. Additional Information VACCINATE! IT SAVES LIVES! Members of the community who have not yet received the COVID-19 vaccine and would like to receive it can visit one of [facility] vaccine clinics. There are many vaccine clinic locations within the [facility]. For locations and available times, please visit [email or web address]/. It is important to note that some COVID mobile vaccine clinics are held outdoors and may be canceled in rainy or stormy conditions. To learn more about pediatric vaccinations (ages 5-11), we invite you to visit the [facility] webpage. https://www.[email or web address].org/pages/8284-Domjr-Nmdeayqxmzd-Hthowojcsf-Roimc-Rat stions.htmlTo learn more about the COVID-19 vaccine, we invite you to visit the CDC website for a list of frequently asked questions.https://www.cdc.gov/coronavirus/2019-ncov/vaccines/faq.html [facility] [employer] Patient Portal Access Instructions: Stay connected with your healthcare team and access your personal medical information anytime with the [facility] Patient Portal. Please follow the directions below to create your [facility] account: 1.Access the email account you provided upon registration to the hospital/physician office.2.Look for an invitation email from [facility].3.Open the email and access the invitation link: AcceptInvitation to [facility] [employer] [employer].4.Fill in the required quintero to create your account. To access your account, visit [email or web address]. Click the blue button labeled Access Patient Portal and then log in with the username and password that you created in the steps above. You will be able to view your test results, lab results, a summary of your visits, upcoming appointments and more. There is also a convenient messaging option where you can send secure messages to your p ETHERAvider. In addition, you will have the ability to download any documents or summaries to your computer and/or send the information securely to a physician. Remember that your healthcare information is confidential, so carefully consider who you will allowto register on the [facility] [employer] Patient Portal for access to your information. You can also access the [facility] Patient Portal on the [employer] joya. Simply click on Patient Portal and then log into your account. If you would like to receive a full copy of your medical records, please contact the [facility] Medical Records Department by calling [phone], Friday through Friday between 8 a.m. and [...] Call your local pharmacy or go to [email or web address] to find one close to you.3.Make use of household items: Use cat litter or old coffee grounds to dispose medications if other options arenot available. Mix your drugs with these household products, seal them in an airtight container andthrow it into the garbage. Call [facility]: [phone] to be sure your drugs can be [...] aware that I should contact my doctor. Patient/Wire Hanger Signature: Date/Time: Relationship to Patient: Witness Name/Signature: Date/Time: [facility] HospitalPxzhmznt70-52-1677 Note IR Procedure Record Summary Primary Physician: RITA YEH MD Finalized Date/Time: 12/03/23 11:48:38 Pt. Name: ILEANA NAVASAusten Boyce D.O.B./Sex: 1990 Female Med Rec #: [id number] Physician: Financial #: [id number] Pt. Type: S Room/Bed: [facility]/A Admit/Disch: 12/03/23 09:22:31 - Institution: Allergies identified [...] Attendee RITA YEH MD, Jacque M. Herrick, Picking Crew Supervisor Leatha Boyce Role Performed Primary Surgeon Scrub Technologist Circulating [...] Case Attendee Lexi Marcano RN Role Performed Tin Flopper 1 Details Time In 12/03/23 11:18:00 Time [...] mL Medication OMNIPAQUE 300 50ML 10/PK Y-[address] [facility] [phone] Radiology Flouroscopy Fluoroscopy Used? Yes Fluoro Dose (mGy) 5.39 Fluoro Time 1.6 min Radiology Local Local Used? Yes Local Type: lidocaine 2% Local Dose 4cc Radiology Procedure Site Site/Location left flank Site Condition No complications Dressing Type Bioclusive 4 X 5, Gauze Technologist Notes 10f x 35cm m-drain sponge 4 X 4 lot#[id number] Last Modified By: Lexi Marcano RN 12/03/23 [...] Radiology - Action Plan Outcomes Met? Yes Exhibit Designer Lexi Marcano RN Completing Procedure Plan Last Modified By: Lexi Marcano RN 12/03/23 11:33:21 Case Comments Finalized By: Lexi Marcano RN Document Signatures Signed By: Lexi Marcano RN 12/03/23 11:48 Lexi Marcano RN 12/03/23 11:48 [facility] HospitalAgtrxnwz46-99-1807 Anesthesiology Consult note Patient: LALY NAVAS Age: [...] Problem list: Medical Anxiety / SNOMED CT 73117173 / Confirmed Asthma / SNOMED CT 050734532 / Confirmed Decreased appetite / SNOMED CT 974000157 / Confirmed Dehydration / SNOMED CT 24073487 / Confirmed Port-A-Cath in place / SNOMED CT 4464676219 / Confirmed Bilateral flank pain / SNOMED CT 383530615 / Confirmed History of chemotherapy / SNOMED CT 7259721307 / Confirmed Hx of cervical cancer / SNOMED CT 3052244967 / Confirmed History of radiation therapy / SNOMED CT 4080012473 / Confirmed Hydronephrosis, left / SNOMED CT 20293788 / Confirmed Acute kidney injury / SNOMED CT 97414423 / Confirmed Left flank pain / SNOMED CT 059647811 / Confirmed Cervical cancer / SNOMED CT 911334578 / Confirmed Moderate protein-calorie malnutrition / SNOMED CT 806852932 / Confirmed Nausea and vomiting / SNOMED CT 41223238 / Confirmed Cancer related pain / SNOMED CT 3125087811 / Confirmed DVT prophylaxis / SNOMED CT 587960716 / Confirmed Palliative care encounter / SNOMED CT 741136476 / Confirmed Premature menopause / SNOMED CT 2122819661 / Confirmed Pyelonephritis / SNOMED CT 60542236 / Confirmed Nephrostomy status / SNOMED CT 615862829 / Confirmed Complicated UTI (urinary tract infection) / SNOMED CT 092078122 / Confirmed Obstructive uropathy / SNOMED CT 79551869 / Confirmed, Active Problems (28) Acute kidney [...] ESBL (extended spectrum beta-lactamase) producing bacteria infection (8433302214): Onset on 02/23/2023 at 32 years. Resolved on 05/07/2023 at 32 years. ESBL (extended spectrum beta-lactamase) producing bacteria infection (4523197686): Onset on 08/09/2022 at 31 years. Resolved on 01/02/2023 at 32 years. Comments: 01/02/2023 SUMEET 10:02 JAMAL Haynes Removed ESBL disease alert from 08/2022 per infection control protocol on 01/02/23. Mass of cervix (992706119): Resolved. Chronic kidney disease, stage 3 (moderate) (2554173234): Resolved. Hydronephrosis of left kidney (60422645): Resolved. Cervicitis (663017869): Resolved. Encounter for antineoplastic chemotherapy (439899161): Resolved. Tinnitus (219685426): Resolved. History of COVID-19 (1616496964): Resolved. Procedure history: Nephrostomy tube (395335515) on 10/05/2023 at 32 Years. Comments: 11/19/2023 9:37 Fany Sanchez LPN left side Nephrostomy with tube drainage (10377503) in the month of 07/2023 at 32 Years. Comments: 06/13/2020 10:09 JAMAL Guaman left Nephrostomy with tube drainage (16611976) on 01/10/2021 at 30 Years. Cannulation of Portacath (159089290) in 2020 at 30 Years. Comments: 06/13/2020 10:09 GINNY Soliz RN Lizzy Germain right JJ stent ([id number]) on 11/15/2020 at 29 Years. Radiation (958910796) in the month of 06/2020 at 29 Years. Comments: 06/26/2020 6:12 GINNY Burton RN Mayi A via tandems and oviod X2 Cervical biopsy (09795037) in 2019 at 29 Years. Comments: 04/12/2020 18:25 Eri Conte RN pt states she had a cervical biopsy done on 04/07/2020 at [facility] for a cervical mass Tumor cells, benign (89140064) in 2001 at 11 Years. 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 done at [facility] in [place] Social History Social & Psychosocial Habits Alcohol [...] Weight 58.6 kg Weight Lbs 128.9 lb [place] Body Weight 59.26 kg Admission Body Mass [...] records, Reviewed prior records. Assessment and Plan [place] Society of Anesthesiologists (ASA) physical status classification: [...] DAVID SMITH MD on 12/03/2023 11:13 AM [facility] HospitalYviybcoz90-00-8742 History and physical note IR PREPROCEDURE H&P [...] 11/19/2023 and can be found in the [facility] ([facility]). Tadeo Leija PA-C Interventional Radiology Pager: [phone] IR dept: x [phone] Available on [facility] Digitally Signed by TADEO LEIJA PA-C on 12/03/2023 10:44 AM [facility] [id number] Hospital Discharge instructions Patient Education 10/22/2023 16:36:58 1-SDS Discharge Instructions Template (08/2018)(CUSTOM) [facility] SAME DAY SURGERY DISCHARGE INSTRUCTIONS PLEASE FOLLOW [...] us better serve our patients. Form: 1522 (20214) R: 02/0910/22/2023 16:36:17 Radiology- Nephrostomy/Nephroureteral Tube Exchange 12/26/2022(CUSTOM) [facility] Nephrostomy/Nephroureteral Tube Exchange Discharge Instructions Interventional Radiology [facility] [address] [place] [address] The procedure that you had done today [...] the feeling of the need to urinate. Iroj-kna-rrnxeru pain medication should be used for pain [...] the gauze. Supplies may be obtained at: [facility] [address] [place] [address] [address] Any questions or concerns, please contact your physician or Interventional Radiology at [phone] from 8-4:30pm Friday-Friday. If you do not have a follow up appointment scheduled at the time of discharge, please call Interventional Radiology at the number listed above. Follow Up Care 10/09/2023 15:32:25 With:BRITTNI LU APRN-[facility] Address: [address] [place] [address] [place] [address]- [phone] When: Unknown Comments:Follow-up as scheduled [facility] 12-20-2023 Note* Cristina Simons RN: SIGN, AUTHOR, SIGN, AUTHOR, PERFORM Event Display: IR Procedure Record Authored Date: [id number] IR Procedure Record Summary Primary Physician: VIRAL MASON MD, Ph.D Finalized Date/Time: 10/22/23 15:04:59 Pt. Name: ANTONELLALALYO.B./Sex: 1990 Female Med Rec #: [id number] Physician: Financial #: [id number] Pt. Type: S Room/Bed: [facility]/A Admit/Disch: 10/22/23 09:10:31 - Institution: Allergies identified [...] Tech Kathy A Role Performed Primary Surgeon Tin Flopper 1 Scrub Technologist Details Time In 10/22/23 14:47:00 10/22/23 14:31:00 10/22/23 14:31:00 Time Out 10/22/23 14:54:00 10/22/23 15:02:00 10/22/23 15:02:00 Procedure/Preference IR Nephrostomy Exchange IR Nephrostomy Exchange IR Nephrostomy Exchange Card (SN) (SN) (SN) Last Modified By: Cristina Simons RN, Tracie N RN Aller, Tracie N RN 10/22/23 14:56:59 10/22/23 14:56:59 10/22/23 14:56:59 Entry 4 Entry 5 Case Attendee Karolina Prater MATTHEW J APRN-DRY CLEANING MACHINE OPERATOR HELPER Role Performed Circulating Technologist DRY CLEANING MACHINE OPERATOR HELPER Details Time In 10/22/23 14:31:00 10/22/23 14:31:00 [...] mL Medication OMNIPAQUE 300 50ML 10/PK Y-[address] [facility] [id number] Radiology Flouroscopy Fluoroscopy Used? Yes Fluoro Dose [...] labeled and ELIANA Bermudez MATTHEW J appropriately WAGE AND SALARY ADMINISTRATOR-DRY CLEANING MACHINE OPERATOR HELPER displayed, Alcohol based prep dry, Double verification [...] Radiology - Action Plan Outcomes Met? Yes Exhibit Designer Cristina Simons RN Completing Procedure Plan Last Modified By: Cristina Simons RN 10/22/23 14:40:41 Case Comments <None> Finalized By: Cristina Simons RN Document Signatures Signed By: Cristina Simons RN 10/22/23 14:57 Cristina Simons RN 10/22/23 15:04 [facility] 12-20-2023 Summary of episode note Discharge Instructions Thank you for allowing [facility] to assist you with your healthcare needs. The following is importantdischarge information regarding your hospital visit. Your Care Team FLIP MARTIN MD What to do next Scheduled Follow-Up Appointments Appointment Type When With Where Contact InformationSO OV Follow Up 10/31/2023 10:00 AM BRITTNI COLEMAN APRN-TECHNICAL PROGRAM MANAGER [facility] [address] [place] [phone] PALL OV Follow Up 11/18/2023 09:30 AM OLE MCNEIL MD [facility] IR Nephrostomy Exchange 12/03/2023 11:00 AM EST IR Follow Up Appointments Follow Up with BRITTNI LU When Why: Follow-up as scheduled Where: [address] [facility] [place] [address]- [phone] The Following Activity and Diet Have Been [...] us better serve our patients. Form: 1524 (40494) R: 02/09 [facility] Nephrostomy/Nephroureteral Tube Exchange Discharge Instructions Interventional Radiology [facility] [place] [address] The procedure that you had done today [...] the feeling of the need to urinate. Jdpq-tqs-rjpxdtz pain medication should be used for pain [...] the gauze. Supplies may be obtained at: [facility] [address] [facility] [address] [facility] Any questions or concerns, please contact your physician or Interventional Radiology at [phone] from 8-4:30pm Friday-Friday. If you do not have a follow up appointment scheduled at the time of discharge, please call Interventional Radiology at the number listed above. Additional Information VACCINATE! IT SAVES LIVES! Members of the community who have not yet received the COVID-19 vaccine and would like to receive it can visit one of [facility] vaccine clinics. There are many vaccine clinic locations within the [facility]. For locations and available times, please visit [email or web address]/. It is important to note that some COVID mobile vaccine clinics are held outdoors and may be canceled in rainy or stormy conditions. To learn more about pediatric vaccinations (ages 5-11), we invite you to visit the [facility] webpage. https://www.[employer].org/pages/5179-Oneer-Ccwpljxuydb-Udpxjmhbzx-Fpedf-Mho stions.htmlTo learn more about the COVID-19 vaccine, we invite you to visit the CDC website for a list of frequently asked questions.https://www.cdc.gov/coronavirus/2019-ncov/vaccines/faq.html [facility] Patient Portal Access Instructions: Stay connected with your healthcare team and access your personal medical information anytime with the [facility] Patient Portal. Please follow the directions below to create your [facility] account: 1.Access the email account you provided upon registration to the hospital/physician office.2.Look for an invitation email from [facility].3.Open the email and access the invitation link: AcceptInvitation to [employer] [employer].4.Fill in the required quintero to create your account. To access your account, visit [email or web address]. Click the blue button labeled Access Patient [...] who you will allowto register on the [facility] Patient Portal for access to your information. You can also access the [facility] Patient Portal on the [employer] joya. Simply click on Patient Portal and then log into your account. If you would like to receive a full copy of your medical records, please contact the [facility] Medical Records Department by calling [phone], Friday through Friday between 8 a.m. and [...] Call your local pharmacy or go to [email or web address] to find one close to you.3.Make use of household items: Use cat litter or old coffee grounds to dispose medications if other options arenot available. Mix your drugs with these household products, seal them in an airtight container andthrow it into the garbage. Call [facility]: [phone] to be sure your drugs can be [...] aware that I should contact my doctor. Patient/Wire Hanger Signature: Date/Time: Relationship to Patient: Witness Name/Signature: Date/Time: [facility] Note IR Procedure Record Summary Primary Physician: VIRAL MASON MD, Ph.D Finalized Date/Time: 10/22/23 15:04:59 Pt. Name: LALY NAVASO.B./Sex: 1990 Female Med Rec #: [id number] Physician: Financial #: [id number] Pt. Type: S Room/Bed: [facility]/A Admit/Disch: 10/22/23 09:10:31 - Institution: Allergies identified in patient's electronic medical record at time of printing on 10/22/23 Entry 1 Entry 2 Substance Oranges penicillin Reaction Type Allergy Allergy Last Modified By: Shoshana Renteria RN, Kimberly V. RN 07/21/23 10:11:02 07/21/23 10:10:45 Case Attendance- IR Entry 1 Entry 2 Entry 3 Case Attendee VIRAL MASON MD, Ph.D Cristina Simons RN Picking Crew SupervisorMendel Jenkins Role Performed Primary Surgeon Tin Flopper 1 Scrub Technologist Details Time In 10/22/23 14:47:00 10/22/23 14:31:00 10/22/23 14:31:00 Time Out 10/22/23 14:54:00 10/22/23 15:02:00 10/22/23 15:02:00 Procedure/Preference IR Nephrostomy Exchange IR Nephrostomy Exchange IR Nephrostomy Exchange Card (SN) (SN) (SN) Last Modified By: Cristina Simons RN Cristina Simons RN, Tracie N RN 10/22/23 14:56:59 10/22/23 14:56:59 10/22/23 14:56:59 Entry 4 Entry 5 Case Attendee Karolina Prater MATTHEW J WAGE AND SALARY ADMINISTRATOR-DRY CLEANING MACHINE OPERATOR HELPER Role Performed Circulating Technologist DRY CLEANING MACHINE OPERATOR HELPER Details Time In 10/22/23 14:31:00 10/22/23 14:31:00 [...] mL Medication OMNIPAQUE 300 50ML 10/PK Y-[address] [facility] [id number] Radiology Flouroscopy Fluoroscopy Used? Yes Fluoro Dose [...] labeled and ELIANA Bermudez MATTHEW J appropriately WAGE AND SALARY ADMINISTRATOR-DRY CLEANING MACHINE OPERATOR HELPER displayed, Alcohol based prep dry, Double verification [...] Radiology - Action Plan Outcomes Met? Yes Exhibit Designer Cristina Simons RN Completing Procedure Plan Last Modified By: Cristina Simons RN 10/22/23 14:40:41 Case Comments Finalized By: Cristina Simons RN Document Signatures Signed By: Cristina Simons RN 10/22/23 14:57 Cristina Simons RN 10/22/23 15:04 [id number] Note ORIGINAL EXAMINATION: IR NEPHROSTOMY TUBE VPMSLO0810/22/2023 3:02 pm IR NEPHROSTOMY TUBE CHANGE HISTORY: [...] Sign Date: 10/22/2023 4:31:01 PM Ordering Provider: [facility]12-20-2023 Procedure note Interventional Radiology Procedure Note Pre-procedure Diagnosis: obstruction Post-procedure Diagnosis: same Procedure: 10F Neph exchange Technique/Findings: Routine left neph tube exchange. Anesthesia utilized. Full report to follow. Orders in Cerner. Performed by: Viral Mason MD, PhD Indian Blanket Weaver: None Complications: None Estimated Blood loss: Minimal Specimen: None Digitally Signed by VIRAL MASON MD, Ph.D on 10/22/2023 02:58 PM [facility]Tdceipkh09-40-6342 Anesthesiology Consult note Patient: LALY NAVAS Age: [...] food, # 120 EA, 0 Refill(s), Pharmacy: [facility], 167.6, cm, 05/15/23 15:33:00 EDT, Height LORazepam 1 mg oral tablet: Dose : 1 mg = 1 tab(s), Oral, BID, # 60 tab(s), 0 Refill(s), Pharmacy: [facility] Cancer related pain History of cervical cancer, 167.6, cm, 09/03/23 13:59:00 EDT, Height, 63.6, kg, 09/03/23 13:59:00 EDT, Dosing Weight OxyContin 15 mg oral tablet, extended release: Dose : 15 mg = 1 tab(s), Oral, BID, # 60 tab(s), 0 Refill(s), Pharmacy: [facility] Cancer related pain Cervical ca, 167.6, cm, 09/03/23 13:59:00 EDT, Height, 63.6, kg, 09/03/23 13:59:00 EDT, Dosing Weight ondansetron 4 mg oral tablet: Dose : 4 mg = 1 tab(s), Oral, q6h, PRN Nausea/Vomiting, # 60 tab(s), 2 Refill(s), Pharmacy: [facility] 167.6, cm, 09/03/23 13:59:00 EDT, Height, kg, 09/03/23 13:59:00 EDT, Dosing Weight oxyCODONE 15 mg oral tablet ( IMMEDIATE release ): Dose : 15 mg = 1 tab(s), Oral, q6hr, may fill on10/05/23, # 120 tab(s), 0 Refill(s), Pharmacy: [facility] Cervical cancer, 167.6, cm, 09/03/23 13:59:00 EDT, [...] Problem list: Medical Anxiety / SNOMED CT 31046592 / Confirmed Asthma / SNOMED CT 884429313 / Confirmed Decreased appetite / SNOMED CT 580423112 / Confirmed Dehydration / SNOMED CT 26066042 / Confirmed Port-A-Cath in place / SNOMED CT 5114176745 / Confirmed Bilateral flank pain / SNOMED CT 154539553 / Confirmed History of chemotherapy / SNOMED CT 3960811236 / Confirmed Hx of cervical cancer / SNOMED CT 1502411451 / Confirmed History of radiation therapy / SNOMED CT 8234757027 / Confirmed Hydronephrosis, left / SNOMED CT 27606065 / Confirmed Acute kidney injury / SNOMED CT 81727063 / Confirmed Left flank pain / SNOMED CT 146821900 / Confirmed Cervical cancer / SNOMED CT 896235314 / Confirmed Moderate protein-calorie malnutrition / SNOMED CT 235192108 / Confirmed Nausea and vomiting / SNOMED CT 18072753 / Confirmed Cancer related pain / SNOMED CT 3125917925 / Confirmed DVT prophylaxis / SNOMED CT 939177106 / Confirmed Palliative care encounter / SNOMED CT 286574846 / Confirmed Premature menopause / SNOMED CT 1044645763 / Confirmed Pyelonephritis / SNOMED CT 17267721 / Confirmed Nephrostomy status / SNOMED CT 891198324 / Confirmed Complicated UTI (urinary tract infection) / SNOMED CT 140634433 / Confirmed Obstructive uropathy / SNOMED CT 89614173 / Confirmed, Active Problems (28) Acute kidney [...] ESBL (extended spectrum beta-lactamase) producing bacteria infection (2915274198): Onset on 02/23/2023 at 32 years. Resolved on 05/07/2023 at 32 years. ESBL (extended spectrum beta-lactamase) producing bacteria infection (6407644487): Onset on 08/09/2022 at 31 years. Resolved on 01/02/2023 at 32 years. Comments: 01/02/2023 EST 10:02 JAMAL Haynes Removed ESBL disease alert from 08/2022 per infection control protocol on 01/02/23. Mass of cervix (376894412): Resolved. Chronic kidney disease, stage 3 (moderate) (2840722670): Resolved. Hydronephrosis of left kidney (53921513): Resolved. Cervicitis (134291787): Resolved. Encounter for antineoplastic chemotherapy (569762200): Resolved. Tinnitus (575636910): Resolved. History of COVID-19 (5040279674): Resolved. Family History: Cancer Sister COPD - Chronic obstructive pulmonary disease Mother Kidney stone Mother Asthma Mother Breast cancer Mother Hypertension Mother Heart disease Mother Substance abuse Father Alcohol abuse Father Stroke Grandparent Father Heart attack Mother Diabetes Grandparent Procedure history: Nephrostomy with tube drainage (21478195) in the month of 07/2023 at 32 Years. Comments: 06/13/2020 10:09 JAMAL Guaman left Nephrostomy with tube drainage (56866009) on 01/10/2021 at 30 Years. Cannulation of Portacath (190498483) in 2020 at 30 Years. Comments: 06/13/2020 10:09 JAMAL Guaman right JJ stent (4363031070) on 11/15/2020 at 29 Years. Radiation (320650371) in the month of 06/2020 at 29 Years. Comments: 06/26/2020 6:12 GINNY Burton RN Mayi A via tandems and oviod X2 Cervical biopsy (58323412) in 2019 at 29 Years. Comments: 04/12/2020 18:25 Eri Conte RN pt states she had a cervical biopsy done on 04/07/2020 at [facility] for a cervical mass Tumor cells, benign (77439556) in 2001 at 11 Years. 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 done at [facility] in [place] Social History Social & Psychosocial Habits Alcohol [...] Resp Rate 16 br/min (OCT 22 10:16) XFN949 mmHg (OCT 22 10:16) DBP83 mmHg (OCT 22 10:16) Measurements from flowsheet : Measurements 10/22/2023 10:16 EST Height 167.6 cm Height in inches 66 inch(es) Admission Weight 61.4 kg Weight Lbs 135.1 lb [place] Body Weight 59.26 kg Admission Body Mass Index 21.86 m2 General: Alert and oriented. Airway: Mallampati classification: II (soft palate, fauces, uvula visible). Dentition Evaluation: Intact. Respiratory: Lungs are clear to auscultation, Respirations are non-labored. Cardiovascular: Normal rate, Regular rhythm. Heart Sounds: Normal. Neurologic: Alert, Oriented. Review / Management Results review: No qualifying data available . Documentation reviewed: Current records. Assessment and Plan [place] Society of Anesthesiologists (ASA) physical status classification: Class III. Anesthetic Preoperative Plan Premedication: intravenous. Anesthetic technique: MAC. Postoperative pain management: Per surgeon. Informed consent: signed by patient. Notes: Cervical CA. Digitally Signed by OLE MONK MD on 10/22/2023 02:01 PM [id number] Evaluation + Plan noteExtracted from: Title:IR Pre-Procedure [...] Ready to change: Yes. Physical Exam Vitals: Gqcxgdjkowf67.9 (10:16) Systolic Blood Tbrjguxs149 (10:16) Diastolic Blood Ihgjeyyw58 (10:16) Pulse76 (10:16) DoS6188 (10:16) Respiratory Rate16 (10:16) General: Alert, cooperative. Heart: Regular Lungs: Clear +LEFT neph tube The remainder of the physical exam is noncontributory. Labs Anticoagulation Labs No qualifying data available. No qualifying data available. Assessment/Treatment Plan LEFT nephrostomy tube exchange Post Procedure Discharge Plan Patient to be discharged home. Tadeo Leija PA-C Interventional Radiology Pager: [phone] IR dept: x [phone] Available on NATIONSPLAY Future Appointments Appointment Date:10/31/2023 10:00:00 AM Scheduled Provider:BRITTNI LU Location:[facility] Appointment Type:SO OV Follow Up Appointment Date:11/18/2023 09:30:00 AM Scheduled Provider:OLE PACE MD Location:[facility] Appointment Type:PALL OV Follow Up Appointment Date:12/03/2023 11:00:00 AM Scheduled Provider: Location:IR Appointment Type:IR Nephrostomy Exchange Future Scheduled Tests Laboratory* Urinalysis 02/14/23 Radiology* IR Nephrostomy Exchange 12/03/23 * IR Neph Cath-Neph Ureter W/Guide Left 06/30/23 * IR Nephrostomy Tube Change Lt Guide 09/04/23 [facility] 12-20-2023 Note Interventional Radiology Focused Preprocedure History/Physical [...] Ready to change: Yes. Physical Exam Vitals: Jthmrdxdxdd81.9 (10:16) Systolic Blood Jpwkqvpd500 (10:16) Diastolic Blood Qpdkumjt98 (10:16) Pulse76 (10:16) NxK7395 (10:16) Respiratory Rate16 (10:16) General: Alert, cooperative. Heart: Regular Lungs: Clear +LEFT neph tube The remainder of the physical exam is noncontributory. Labs Anticoagulation Labs No qualifying data available. No qualifying data available. Assessment/Treatment Plan LEFT nephrostomy tube exchange Post Procedure Discharge Plan Patient to be discharged home. Tadeo Leija PA-C Interventional Radiology Pager: [phone] IR dept: x [phone] Available on Cortext Digitally Signed by TADEO LEIJA PA-C on 10/22/2023 01:31 PM [facility]qinydsf36-79-5101 Note. MICRO - Microbiology PROCEDURE: Blood Culture [...] Locations *1: This test was performed at: [facility], [address] [place] [address], [facility]- , [facility] ([place])07-24-2023 Hospital Discharge instructions Patient Education 07/24/2023 16:23:03 Radiology- Nephrostomy/Nephroureteral Tube Exchange 12/26/2022(CUSTOM) [facility] Nephrostomy/Nephroureteral Tube Exchange Discharge Instructions Interventional Radiology [facility] [address] [place] [address] The procedure that you had done today [...] the feeling of the need to urinate. Aznw-ssl-adhjrcd pain medication should be used for pain [...] the gauze. Supplies may be obtained at: [facility] [address] [facility] [address] [facility] Any questions or concerns, please contact your physician or Interventional Radiology at [phone] from 8-4:30pm Friday-Friday. If you do not have a follow up appointment scheduled at the time of discharge, please call Interventional Radiology at the number listed above. 07/24/2023 16:19:42 1-[facility] Discharge Instructions Template (08/2018)(CUSTOM) [facility] SAME DAY [...] us better serve our patients. Form: 1522 89191) R: 02/09 Follow Up Care 07/22/2023 14:03:34 With:MADELINE APARICIO MD, [facility] Address: [address] [place] [address] [facility] [place] [phone] When: Unknown Comments:Follow-up as scheduled [facility] 09-21-2023 Nurse Progress note Patient returned from [...] Tadeo Whitmore RN on 07/24/2023 04:51 PM [facility] [id number] Summary of episode note Discharge Instructions Thank you for allowing [facility] to assist you with your healthcare needs. The following is importantdischarge information regarding your hospital visit. Your Care Team FLIP MARTIN MD What to do next Scheduled Follow-Up Appointments Appointment Type When With Where Contact InformationSO OV Follow Up 07/30/2023 11:30 AM EDT FLIP MARTIN MD [facility] [address] [place] [phone] PALL New Patient 07/31/2023 03:00 PM EDT OLE PACE MD Palliative Care IR Nephrostomy Tube Change Lt Guide 09/04/2023 01:00 PM EDT IR Follow Up Appointments Follow Up with MADELINE APARICIO MD, [facility] When Why: Follow-up as scheduled Where: [address] [place] [address] [facility] [place] [address]- [phone] The Following Activity and Diet Have Been [...] medication providers or retail pharmacies. Education Materials [facility] Nephrostomy/Nephroureteral Tube Exchange Discharge Instructions Interventional Radiology [facility] [address] [place] [address] The procedure that you had done today [...] the feeling of the need to urinate. Pjzh-uww-aybxjke pain medication should be used for pain [...] the gauze. Supplies may be obtained at: [facility] [address] [facility] [address] [facility] Any questions or concerns, please contact your physician or Interventional Radiology at [phone] from 8-4:30pm Friday-Friday. If you do not [...] us better serve our patients. Form: 1522 (10788) R: 02/09 Additional Information VACCINATE! IT SAVES LIVES! Members of the community who have not yet received the COVID-19 vaccine and would like to receive it can visit one of [facility] vaccine clinics. There are many vaccine clinic locations within the [facility]. For locations and available times, please visit [email or web address].gov/. It is important to note that some COVID mobile vaccine clinics are held outdoors and may be canceled in rainy or stormy conditions. To learn more about pediatric vaccinations (ages 5-11), we invite you to visit the [facility] webpage. https://www.[facility].org/pages/2815-Nztmv-Fnclhwbfitu-Vtqunmiuzz-Bquaz-Upl stions.htmlTo learn more about the COVID-19 vaccine, we invite you to visit the CDC website for a list of frequently asked questions.https://www.cdc.gov/coronavirus/2019-ncov/vaccines/faq.html [facility] [employer] [employer] Patient Portal Access Instructions: Stay connected with your healthcare team and access your personal medical information anytime with the [facility] [employer] [employer] Patient Portal. Please follow the directions below to create your [employer] account: 1.Access the email account you provided upon registration to the hospital/physician office.2.Look for an invitation email from [facility].3.Open the email and access the invitation link: AcceptInvitation to [facility] [employer] [employer].4.Fill in the required quintero to create your account. To access your account, visit [email or web address]. Click the blue button labeled Access Patient Portal and then log in with the username and password that you created in the steps above. You will be able to view your test results, lab results, a summary of your visits, upcoming appointments and more. There is also a convenient messaging option where you can send secure messages to your p [employer]. In addition, you will have the ability to download any documents or summaries to your computer and/or send the information securely to a physician. Remember that your healthcare information is confidential, so carefully consider who you will allowto register on the [facility] Patient Portal for access to your information. You can also access the [facility] [employer] [employer] Patient Portal on the [facility] joya. Simply click on Patient Portal and then log into your account. If you would like to receive a full copy of your medical records, please contact the [facility] Medical Records Department by calling [phone], Friday through Friday between 8 a.m. and [...] Call your local pharmacy or go to [email or web address] to find one close to you.3.Make use of household items: Use cat litter or old coffee grounds to dispose medications if other options arenot available. Mix your drugs with these household products, seal them in an airtight container andthrow it into the garbage. [facility]: [phone] to be sure your drugs can be [...] Education Materials Radiology- Nephrostomy/Nephroureteral Tube Exchange 12/26/2022(CUSTOM) 1-SDS Discharge Instructions Template (08/2018)(CUSTOM) Medication Leaflets My discharge plan and instructions have been reviewed and explained to me and I,LALY NAVAS understand my current condition and have read and understand these discharge instructions. I have received a written copy of the plan/instructions. If I have questions, I am aware that I should contact my doctor. Patient/Wire Hanger Signature: Date/Time: Relationship to Patient: Witness Name/Signature: Date/Time: [id number] Note IR Procedure Record Summary Primary Physician: MADELINE APARICIO MD Finalized Date/Time: 07/24/23 14:16:14 Pt. Name: LALY NAVAS Austen /Sex: 1990 Female Med Rec #: [id number] Physician: Financial #: [id number] Pt. Type: S Room/Bed: [facility] Admit/Disch: 07/24/23 09:40:57 - Institution: Allergies identified in patient's electronic medical record at time of printing on 07/24/23 Entry 1 Entry 2 Substance Oranges penicillin Reaction Type Allergy Allergy Last Modified By: Shoshana Renteria RN, Kimberly V. RN 07/21/23 10:11:02 07/21/23 10:10:45 Case Attendance- IR Entry 1 Entry 2 Entry 3 Case Attendee MADELINE APARICIO MD, MATTHEW C Aller, Tracie N RN WAGE AND SALARY ADMINISTRATOR-DRY CLEANING MACHINE OPERATOR HELPER Role Performed Primary Surgeon DRY CLEANING MACHINE OPERATOR HELPER Tin Flopper 1 Details Time In 07/24/23 12:59:00 07/24/23 [...] mL Medication OMNIPAQUE 300 50ML 10/PK Y-[address] [facility] 7573-1002-23 Radiology Flouroscopy Fluoroscopy Used? Yes Fluoro Dose [...] Time Out DENISE BUCIO Relevant images and WAGE AND SALARY ADMINISTRATOR-Kristyn ESPINOZA, results are properly Cristina Hitchcock RN, Bárbara, labeled and Picking Crew SupervisorMendel Zhang L, appropriately Sam Henry Amanda K Confirm/obtain preop antibiotic order., Alcohol based [...] Groin Side Left Right By Sam Granger Picking Crew SupervisorMendel Boyce L Prep Agents Betadine Solution Chloraprep Hair [...] Radiology - Action Plan Outcomes Met? Yes Exhibit Designer Cristina Simons RN Completing Procedure Plan Last Modified By: Cristina Simons RN 07/24/23 12:48:58 Case Comments Finalized By: Sam Henry Document Signatures Signed By: Cristina Simons RN 07/24/23 13:58 Sam Henry 07/24/23 14:15 [facility] Lida Piper 07/24/23 14:16 [facility] [id number] Evaluation + Plan noteExtracted from: Title:IR Pre-Procedure [...] 06/26/23 and can be found in the [facility] ([facility]). Milagro Mcgarry PA-C Interventional Radiology IR Dept [id number] Available on [facility] Future Appointments Appointment Date:07/30/2023 11:30:00 AM Scheduled Provider:FLIP MARTIN MD Location:[facility] Appointment Type:SO OV Follow Up Appointment Date:07/31/2023 03:00:00 PM Scheduled Provider:OLE PACE MD Location:[facility] Palliative Appointment Type:PALL New Patient Appointment Date:09/04/2023 01:00:00 PM Scheduled Provider: Location:IR Appointment Type:IR Nephrostomy Tube Change Lt Guide Future Scheduled Tests Laboratory* Pathology Tire Repairer Request 05/15/23 * Urinalysis 02/14/23 Radiology* IR [...] IR Nephrostomy Tube Change Lt Guide 06/21/24 [facility] 09-21-2023 Note* Cristina Simons RN: SIGN Cristina Simons RN: SIGN, Cristina Head RN: AUTHOR, AUTHOR, PERFORM, SIGN Sam Henry K: MY, AUTHOR Sam Henry K: AUTHOR Event Display: IR Procedure Record Authored Date: [id number] IR Procedure Record Summary Primary Physician: MADELINE APARICIO MD Finalized Date/Time: 07/24/23 14:16:14 Pt. Name: LALY NAVAS/Sex: 1990 Female Med Rec #: [id number] Physician: Financial #: [id number] Pt. Type: S Room/Bed: [facility]/B Admit/Disch: 07/24/23 09:40:57 - Institution: Allergies identified in patient's electronic medical record at time of printing on 07/24/23 Entry 1 Entry 2 Substance Oranges penicillin Reaction Type Allergy Allergy Last Modified By: Shoshana Renteria RN, Kimberly V. RN 07/21/23 10:11:02 07/21/23 10:10:45 Case Attendance- IR Entry 1 Entry 2 Entry 3 Case Attendee MADELINE APARICIO MD, MATTHEW C Aller, Tracie N RN WAGE AND SALARY ADMINISTRATOR-DRY CLEANING MACHINE OPERATOR HELPER Role Performed Primary Surgeon DRY CLEANING MACHINE OPERATOR HELPER Tin Flopper 1 Details Time In 07/24/23 12:59:00 07/24/23 [...] 13:58:17 Entry 4 Entry 5 Case Attendee Bárbara Picking Crew Supervisor Leatha Henry Picking Crew Supervisor Austen Piper Role Performed Scrub Technologist Circulating [...] EBL 0 mL 3 Last Modified By: aSm Henry Rad Tech Amanda K 07/24/23 Lida Piper 07/24/23 14:14:35 14:14:10 Radiology Procedure Details - IR Entry 1 Radiology Sedation Case Times Sedation Total Time 0 minutes Radiology - Fluid/Drainage Radiology Contrast Contrast Used? Yes Dose 10 mL Medication OMNIPAQUE 300 50ML 10/PK Y-[address] [facility] [id number] Radiology Flouroscopy Fluoroscopy Used? Yes Fluoro Dose [...] Time Out DENISE BUCIO Relevant images and WAGE AND SALARY ADMINISTRATOR-Kristyn ESPINOZA, results are properly Cristina Hitchcock RN, Bárbara, johnny and Picking Crew Supervisor Leatha Boyce, appropriately Sam Henry Amanda K Confirm/obtain preop antibiotic order., Alcohol based [...] Groin Side Left Right By Sam Granger Picking Crew SupervisorMendel Boyce Prep Agents Betadine Solution Chloraprep Hair [...] Radiology - Action Plan Outcomes Met? Yes Exhibit Designer Cristina Simons RN Completing Procedure Plan Last Modified By: Cristina Simons RN 07/24/23 12:48:58 Case Comments <None> Finalized By: Sam Henry Document Signatures Signed By: Cristina Simons RN 07/24/23 13:58 Sam Henry 07/24/23 14:15 Sam Henry 07/24/23 14:16 [facility] 09-21-2023 History and physical note IR PREPROCEDURE [...] 06/26/23 and can be found in the [facility] Records ([facility]). Milagro Mcgarry PA-C Interventional Radiology IR Dept [id number] Available on [employer] Digitally Signed by MILAGRO MCGARRY PA-C on 07/24/2023 12:20 PM Digitally Signed by MADELINE APARICIO MD on 07/24/2023 05:58 PM [facility] [id number] Anesthesiology Consult note Patient: LALY NAVAS Age: [...] Medical Left flank pain / SNOMED CT 102269342 / Confirmed Nausea and vomiting / SNOMED CT 63781577 / Confirmed Dehydration / SNOMED CT 54164875 / Confirmed Asthma / SNOMED CT 451287165 / Confirmed Obstructive uropathy / SNOMED CT 64215634 / Confirmed Acute kidney injury / SNOMED CT 35850541 / Confirmed Moderate protein-calorie malnutrition / SNOMED CT 382052071 / Confirmed Port-A-Cath in place / SNOMED CT 4120491839 / Confirmed History of chemotherapy / SNOMED CT 4346737292 / Confirmed History of radiation therapy / SNOMED CT 0569947419 / Confirmed Complicated UTI (urinary tract infection) / SNOMED CT 673025305 / Confirmed Anxiety / SNOMED CT 85408477 / Confirmed DVT prophylaxis / SNOMED CT 541179050 / Confirmed Decreased appetite / SNOMED CT 853831645 / Confirmed Cervical cancer / SNOMED CT 357139281 / Confirmed Nephrostomy status / SNOMED CT 706153354 / Confirmed Premature menopause / SNOMED CT 3642293123 / Confirmed Pyelonephritis / SNOMED CT 22500097 / Confirmed Bilateral flank pain / SNOMED CT 289308752 / Confirmed Cancer related pain / SNOMED CT 4224052748 / Confirmed, Active Problems (25) Acute kidney [...] ESBL (extended spectrum beta-lactamase) producing bacteria infection (4906754957): Onset on 02/23/2023 at 32 years. Resolved on 05/07/2023 at 32 years. ESBL (extended spectrum beta-lactamase) producing bacteria infection (9866969952): Onset on 08/09/2022 at 31 years. Resolved on 01/02/2023 at 32 years. Comments: 01/02/2023 EST 10:02 JAMAL Holloway Removed ESBL disease alert from 08/2022 per infection control protocol on 01/02/23. Mass of cervix (348197804): Resolved. Chronic kidney disease, stage 3 (moderate) (5194850704): Resolved. Hydronephrosis of left kidney (04564697): Resolved. Cervicitis (298253640): Resolved. Encounter for antineoplastic chemotherapy (607918206): Resolved. Tinnitus (090243313): Resolved. History of COVID-19 (5779315196): Resolved. Family History: Cancer Sister COPD - Chronic obstructive pulmonary disease Mother Kidney stone Mother Asthma Mother Breast cancer Mother Hypertension Mother Heart disease Mother Substance abuse Father Alcohol abuse Father Stroke Grandparent Father Heart attack Mother Diabetes Grandparent Procedure history: Nephrostomy with tube drainage (65065720) in the month of 07/2023 at 32 Years. Comments: 06/13/2020 10:09 JAMAL Guaman left Nephrostomy with tube drainage (63244109) on 01/10/2021 at 30 Years. Cannulation of Portacath (316143795) in 2020 at 30 Years. Comments: 06/13/2020 10:09 JAMAL Guaman right JJ stent ([id number]) on 11/15/2020 at 29 Years. Radiation (766925493) in the month of 06/2020 at 29 Years. Comments: 06/26/2020 6:12 GINNY Burton RN Mayi A via tandems and oviod X2 Cervical biopsy (47882973) in 2019 at 29 Years. Comments: 04/12/2020 18:25 Eri Conte RN pt states she had a cervical biopsy done on 04/07/2020 at [facility] for a cervical mass Tumor cells, benign (22717355) in 2001 at 11 Years. 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 done at [facility] in [place] Social History Social & Psychosocial Habits Alcohol [...] Resp Rate 18 br/min (JUL 24 10:08) CJH413 mmHg (JUL 24 10:08) DBP83 mmHg (JUL 24 10:08) Measurements from flowsheet : Measurements 07/24/2023 10:08 EDT Height 167.6 cm Height in inches 66 inch(es) Admission Weight 67.8 kg Weight Lbs 149.2 lb Weight Method Actual [place] Body Weight 59.26 kg Type of Scale [...] Weight Lbs 149.2 lb Weight Method Actual [place] Body Weight 59.26 kg Type of Scale [...] Devices Nephrostomy Skin Temperature Warm Skin Description [place], Dry Skin Integrity Intact Characteristics of Speech [...] Patient History PreTest (Modified) 07/24/2023 9:27 EDT Heaven GRAY 07/24/2023 9:27 EDT GUSTABOumstefanyy CSUMMARY 07/23/2023 11:58 EDT Message PAC Team Auth Message 07/23/2023 0:00 EDT Precert Scanned NEPH CATH EXCHANGE AUTH . Assessment and Plan [place] Society of Anesthesiologists (ASA) physical status classification: Class III. Anesthetic Preoperative Plan Anesthetic technique: General. Induction: intravenously. Maintenance airway: Oral endotracheal tube. Postoperative pain management: Per surgeon. Risks discussed: nausea, vomiting, headache, sore throat, dental injury, hypotension, allergic reaction, serious complications. Informed consent: signed by patient. Notes: smoker, asthma, cervical CA. Digitally Signed by MARIN COTE MD on 07/24/2023 12:05 PM [facility] [id number] Procedure note Brief IR Post Procedure Note - Outpatient Pre Procedure Dx: Cervical ca hx, left ureteral scarring requiring chronic catheter, poor compliance where prior PCNU was stuck in ureter, fibrin sheath of port Post Procedure Dx: Same Procedure: 1. Conversion of left PCNU to PCN 2. Port venogram 3. Port catheter fibrin sheath stripping Broke Beater Operator: Markus Indian Blanket Weaver: None Anesthesia: Local, MAC EBL: Minimal Complications:None [...] MD Vascular & Interventional Radiology [facility] ([facility]) [email or web address] Pager: [phone] [facility] IR Dept (26/05): [phone] RAC-VIR [id number] [facility]-VIR Digitally Signed by MADELINE APARICIO MD on 07/24/2023 01:58 PM [facility] HospitalIgwkcpmg11-01-0003 Hospital Discharge instructions Patient Education 07/16/2023 13:40:49 [...] strategies to do this. General instructions Take umaz-imc-vbfmfpn and prescription medicines only as told by [...] 07/12/2003 Document Revised: 10/02/2018 Document Reviewed: 04/08/2017 [employer] Patient Education 2020 [employer] Follow Up Care 07/08/2023 20:13:58 With:OLE PACE MD Address: [address] [place] [address] [place] [address]- [phone] When:07/24/2023 15:00:00 With:FLIP MARTIN MD Address: [address] [place] [address] [place] [address]- [phone] When:07/30/2023 11:30:00 [facility] 09-13-2023 Palliative care Progress note Awaiting prior auth Digitally Signed by SANTINO SAWYER MD on 07/16/2023 06:16 AM [facility] [id number] Note Date of Service 07/16/23 Subjective Patient [...] Tract Infection - 07/07/23 Patient presented to [facility] for UTI symptoms. - Urinalysis on 07/07 was remarkable for signs of UTI at [facility]. Patient was placed on BactrimDS twice daily x10 days for outpatient management after discussion with Dr. Hilliard. - 07/07/23 CT abdomen/pelvis obtained at that time showed Left-sided nephrostomy is present extendingto the bladder. There is an irregularly shaped hypodense focus in the upper pole of the kidney without enhancement. Mucosal thickening versus underfilling of the colon. - 07/08 Patient again presents to [facility] with N/V, pain and UTI symptoms - [...] was supposed to see Dr. Andrea at [facility]. Referral was sent to this provider to be scheduled end of May/early June. Patient did not do this. - Discussion with Dr. Martin via telehealth visit, patient was encouraged again to follow-up with [facility] urology for possible nephrectomy in order [...] MARIA GODOY DO on 07/16/2023 06:55 AM [facility] HospitalXtqikgkq95-16-8012 Note Discharge Instructions Thank you for allowing [facility] to assist you with your healthcare needs. [...] Surgery 07/24/2023 11:25 AM EDT Main OR [phone] IR Neph Cath-Neph Ureter W/Guide Left 07/24/2023 12:00 PM EDT IR PALL New Patient 07/24/2023 03:00 PM EDT OLE PACE MDltman Palliative Care SO OV Follow Up 07/30/2023 11:30 AM EDT FLIP MARTIN MD [facility] [address] [place] [id number] Follow Up Appointments Follow Up with FLIP MARTIN MD When 07/30/2023 11:30 AM EDT Where: [address] [place] [address] [place] [address]- [phone] The Following Activity and Diet Have Been [...] Cervical ca Duration: 9 Days Pickup at [facility]. Changed LORazepam (LORazepam 1 mg oral tablet) 1 tab(s) by mouth Every 8 hours Changed oxyCODONE (oxyCODONE 5 mg oral tablet ( IMMEDIATE release )) 3 tab(s) by mouth Every 4 hours as needed for as needed for pain Cancer related pain Cervical ca Duration: 7 Days Pickup at [facility]. Changed oxyCODONE (OxyContin 15 mg oral tablet, extended release) 1 tab(s) by mouth Two (2) times a day Cancer related pain Cervical ca Pickup at [facility]. Unchanged calcium-vitamin D (Calcium Plus Vitamin D3 [...] hours as needed for Nausea/Vomiting Pharmacy Information [facility] [address] [place], [place] [phone] Please take this list to your next [...] strategies to do this. General instructions Take myyr-nxb-teopgeg and prescription medicines only as told by [...] 07/12/2003 Document Revised: 10/02/2018 Document Reviewed: 04/08/2017 [employer] Patient Education 2020 [employer] Additional Information VACCINATE! IT SAVES LIVES! Members of the community who have not yet received the COVID-19 vaccine and would like to receive it can visit one of [facility] vaccine clinics. There are many vaccine clinic locations within the [facility]. For locations and available times, please visit [email or web address] It is important to note that some COVID mobile vaccine clinics are held outdoors and may be canceled in rainy or stormy conditions. To learn more about pediatric vaccinations (ages 5-11), we invite you to visit the [facility] webpage. [email or web address]/pages/[email or web address]-Nvwdzlxzdjc-Aqztsmicza-Gupgc-Afn stions.htmlTo learn more about the COVID-19 vaccine, we invite you to visit the CDC website for a list of frequently asked questions.https://www.cdc.gov/coronavirus/2019-ncov/vaccines/faq.html [employer] Patient Portal Access Instructions: Stay connected with your healthcare team and access your personal medical information anytime with the [employer] Patient Portal. Please follow the directions below to create your [employer] account: 1.Access the email account you provided upon registration to the hospital/physician office.2.Look for an invitation email from [facility].3.Open the email and access the invitation link: AcceptInvitation to [employer].4.Fill in the required quintero to create your account. To access your account, visit [employer]. Click the blue button labeled Access Patient [...] who you will allowto register on the [employer] Patient Portal for access to your information. You can also access the [employer] Patient Portal on the [employer] joya. Simply click on Patient Portal and then log into your account. If you would like to receive a full copy of your medical records, please contact the [facility] Medical Records Department by calling [phone], Friday through Friday between 8 a.m. and [...] Call your local pharmacy or go to [email or web address] to find one close to you.3.Make use of household items: Use cat litter or old coffee grounds to dispose medications if other options arenot available. Mix your drugs with these household products, seal them in an airtight container andthrow it into the garbage. Call [facility]: [phone] to be sure your drugs can be [...] aware that I should contact my doctor. Patient/Wire Hanger Signature: Date/Time: Relationship to Patient: Witness Name/Signature: Date/Time: [facility] HospitalWeeuoolr44-31-7539 Note Date of Service 07/16/23 Subjective Patient [...] Tract Infection - 07/07/23 Patient presented to [facility] for UTI symptoms. - Urinalysis on 07/07 was remarkable for signs of UTI at [facility]. Patient was placed on BactrimDS twice daily x10 days for outpatient management after discussion with Dr. Hilliard. - 07/07/23 CT abdomen/pelvis obtained at that time showed Left-sided nephrostomy is present extendingto the bladder. There is an irregularly shaped hypodense focus in the upper pole of the kidney without enhancement. Mucosal thickening versus underfilling of the colon. - 07/08 [facility] and [facility] symptoms - [...] was supposed to see Dr. Andrea at [facility]. Referral was sent to this provider to be scheduled end of May/early June. Patient did not do this. - Discussion with Dr. Martin via telehealth visit, patient was encouraged again to follow-up with [facility] urology for possible nephrectomy in order [...] MARIA GODOY DO on 07/16/2023 06:55 AM [facility] [id number] Palliative care Progress note Awaiting prior auth Digitally Signed by SANTINO SAWYER MD on 07/16/2023 06:16 AM [facility] HospitalRrvtyvdm98-91-9982 Palliative care Progress note Chart reviewed in detail. EKG remains pending to evaluate for possible QTc prolongation in anticipation of possibly starting methadone. Per documentation, patient resistant to starting methadone. Prescription written for oxycodone, OxyContin in anticipation of discharge tomorrow in case there is prior authorization needed. Digitally Signed by SANTINO SAWYER MD on 07/15/2023 12:19 PM [facility] [id number] Palliative care Progress note Chart reviewed in detail. EKG remains pending to evaluate for possible QTc prolongation in anticipation of possibly starting methadone. Per documentation, patient resistant to starting methadone. Prescription written for oxycodone, OxyContin in anticipation of discharge tomorrow in case there is prior authorization needed. Digitally Signed by SANTINO SAWYER MD on 07/15/2023 12:19 PM [facility] HospitalOeymiaqr38-23-5249 Note Date of Service 07/15/2023 Chief Complaint [...] Urinary Tract Infection -07/07/23 Patient presented to [facility] for UTI symptoms. - Urinalysis on 07/07 was remarkable for signs of UTI at [facility]. Patient was placed on BactrimDS twice daily x10 days for outpatient management after discussion with Dr. Hilliard. - 07/07/23 CT abdomen/pelvis obtained at that time showed Left-sided nephrostomy is present extendingto the bladder. There is an irregularly shaped hypodense focus in the upper pole of the kidney without enhancement. Mucosal thickening versus underfilling of the colon. -07/08 Patient again presents to [facility] with N/V, pain and UTI symptoms -Patient [...] was supposed to see Dr. Andrea at [facility]. Referral was sent to this provider to be scheduled end of May/early June. Patient did not dothis. -Discussion with Dr. Martin via telehealth visit, patient was encouraged again to follow-up with [facility] urology for possible nephrectomy in order [...] ANGELA ALVARADO DO on 07/15/2023 06:33 AM [facility] HospitalKduceano96-08-7962 Nurse Progress note Nephrostomy dressing changed. Site [...] Elicia Rojo RN on 07/15/2023 10:28 AM [facility] HospitalButycnyn21-76-1126 Note Date of Service 07/15/2023 Chief Complaint [...] 100 UOP: 75cc clear urine in nephrostomy. 3150/24 Pain control: Oral Oxycontin , oxycodone, Gabapentin, [...] Urinary Tract Infection -07/07/23 Patient presented to [facility] for UTI symptoms. - Urinalysis on 07/07 was remarkable for signs of UTI at [facility]. Patient was placed on BactrimDS twice daily x10 days for outpatient management after discussion with Dr. Hilliard. - 07/07/23 CT abdomen/pelvis obtained at that time showed Left-sided nephrostomy is present extendingto the bladder. There is an irregularly shaped hypodense focus in the upper pole of the kidney without enhancement. Mucosal thickening versus underfilling of the colon. -07/08 Patient again presents to [facility] with N/V, pain and UTI symptoms -Patient [...] was supposed to see Dr. Andrea at [facility]. Referral was sent to this provider to be scheduled end of May/early June. Patient did not dothis. -Discussion with Dr. Martin via telehealth visit, patient was encouraged again to follow-up with [facility] urology for possible nephrectomy in order [...] ANGELA ALVARADO DO on 07/15/2023 06:33 AM [facility] HospitalLvxuhcgw16-35-1601 Palliative care Progress note Date of Service [...] BUN: <5.0 L Creatinine Lvl (s): 0.69 0910 09:56 WBC: 8.1 Hgb: 11.5 L Hct: [...] SANTINO SAWYER MD on 07/14/2023 03:31 PM [facility] HospitalAgjkkksv08-86-7089 Note Date of Service 07/14/2023 Chief Complaint [...] 100 UOP: 75cc clear urine in nephrostomy. 3150/24 Pain control: Oral Oxycontin , oxycodone, Gabapentin, [...] Urinary Tract Infection -07/07/23 Patient presented to [facility] for UTI symptoms. - Urinalysis on 07/07 was remarkable for signs of UTI at [facility]. Patient was placed on BactrimDS twice daily x10 days for outpatient management after discussion with Dr. Hilliard. - 07/07/23 CT abdomen/pelvis obtained at that time showed Left-sided nephrostomy is present extendingto the bladder. There is an irregularly shaped hypodense focus in the upper pole of the kidney without enhancement. Mucosal thickening versus underfilling of the colon. -07/08 Patient again presents to [facility] with N/V, pain and UTI symptoms -Patient [...] the same - consult to psych, onc rn social work, nurse navigator - plan for patient to follow up with pain management outpatient. Left Nephrostomy Tube -Patient was scheduled with interventional radiology for nephroureteral tube change on 06/24/2023. Patient did not show for appointment. -Patient does not currently follow with a urologist. She was supposed to see Dr. Andrea at [facility]. Referral was sent to this provider to be scheduled end of May/early June. Patient did not dothis. -Discussion with Dr. Martin via telehealth visit, patient was encouraged again to follow-up with [facility] urology for possible nephrectomy in order [...] ANGELA ALVARADO DO on 07/14/2023 06:45 AM [facility] [id number] Mental health Consult note Date of Service [...] Patient reports that she lives alone in [facility] [place] [facility], and due to her chronic [...] 4 different options for psychotherapy follow-up in [place], where she lives, including family life counseling, the counseling center, [facility] and [place]. She expresses understanding and agrees [...] mg= 1 tab(s), Oral, qDay Sterile Water RETIREMENT, 2.2 mL, IV Push, prep pharm Zofran, [...] CAIO KNOX MD on 07/14/2023 08:48 AM [facility] [id number] Note Date of Service 07/14/2023 Chief Complaint [...] Urinary Tract Infection -07/07/23 Patient presented to [facility] for UTI symptoms. - Urinalysis on 07/07 was remarkable for signs of UTI at [facility]. Patient was placed on BactrimDS twice daily x10 days for outpatient management after discussion with Dr. Hilliard. - 07/07/23 CT abdomen/pelvis obtained at that time showed Left-sided nephrostomy is present extendingto the bladder. There is an irregularly shaped hypodense focus in the upper pole of the kidney without enhancement. Mucosal thickening versus underfilling of the colon. -07/08 Patient again presents to [facility] with N/V, pain and UTI symptoms -Patient [...] the same - consult to psych, onc rn social work, nurse navigator - plan for patient to follow up with pain management outpatient. Left Nephrostomy Tube -Patient was scheduled with interventional radiology for nephroureteral tube change on 06/24/2023. Patient did not show for appointment. -Patient does not currently follow with a urologist. She was supposed to see Dr. Andrea at [facility]. Referral was sent to this provider to be scheduled end of May/early June. Patient did not dothis. -Discussion with Dr. Martin via telehealth visit, patient was encouraged again to follow-up with [facility] urology for possible nephrectomy in order [...] ANGELA ALVARADO DO on 07/14/2023 06:45 AM [facility] [id number] Palliative care Consult note Date of Service 07/11/2023 Reason for Consult Cancer related pain management Participants in Discussion Lizy, the patient History of Present Illness Lizy Navas is a 32-year-old, Samoan-speaking, female with past medical history of advanced [...] She has never completed healthcare power of sports attorney. We discussed legal surrogate decision making hierarchy. She would not want her family making decisions regarding her medical care. Provided information regarding healthcare power of sports attorney. She would like totalk to her friend about this. We offered to complete healthcare power of sports attorney here in hospitalbut if she is discharged prior to completing this she knows she can complete healthcare power of sports attorney paperwork outpatient as well. Problem List/Past [...] 2 mL, IV Push, q6h Sterile Water RETIREMENT, 2.2 mL, IV Push, prep pharm Toradol, [...] SANTINO SAWYER MD on 07/11/2023 02:36 PM [facility] [id number] Nurse Progress note patient states that she fell, she thinks she passed out. Neuro assessment negative, no evidence of injury. charge nurse notified Digitally Signed by JAMAL Ferrer on 07/10/2023 04:10 PM [facility] [id number] Note. MICRO - Microbiology PROCEDURE: Urine Culture [...] Locations *1: This test was performed at: [address], [address]- , [facility] ([place])07-10-2023 Note. MICRO - Microbiology PROCEDURE: Urine Culture [...] Locations *1: This test was performed at: [address], [facility] , [facility] ([place])07-10-2023 NoteORIGINAL PROCEDURE: IR NEPHROSTOMY TUBE CHANGE MODERATE CONSCIOUS SEDATION 07/09/2023 HISTORY: ORDERING SYSTEM PROVIDED HISTORY: Reason for Exam: Overdue for nephrostomy tube exchange, last changed in April Routine nephroureteral stent check unchanged TECHNIQUE: Parada portions of the exam: 1. Retrieval of foreign body. 2. Antegrade nephrostogram. 3. Angioplasty of the ureter. 4. Replacement of nephroureteral stent with up sizing to 10 Guamanian CONTRAST: 80 cc SEDATION: Moderate sedation was ordered and supervised by the attending with physician [id number] monitoring. Medications were provided and recorded by Radiology nurses. FLUOROSCOPY DOSE AND TYPE: Radiation Exposure Index: 26.1 minutes of fluoroscopic time was 344 AKA, DESCRIPTION OF PROCEDURE: Informed consent was obtained after a detailed explanation of the procedure including risks, benefits, and alternatives. Felt protocol was observed. Sterile gowns, masks, hats [...] made to attempt exchange of an 8 Guamanian nephroureteral stent. Under fluoroscopic guidance, a all [...] significant amount of backwards pressure, the 8 Guamanian nephroureteral stent is unable to be pulled. [...] the bladder. At this point, a 7 Guamanian 45 cm sheath is now advanced into the bladder from the nephrostomy tube access through the ureter at which point, a 15 mm 6 Guamanian snare is advanced and used to snare the broken piece of 014 wire with retrieval of foreign body performed. Next, a new nephroureteral stent is advanced. Given that the 8 Guamanian had occluded previously, decision was made to place a 10 Guamanian nephroureteral stent. Over the stiff glide, a [...] Sign Date: 07/10/2023 1:33:51 PM Ordering Provider: [facility] ([place])07-10-2023 Note ORIGINAL PROCEDURE: VR PORTOGRAPHY MODERATE CONSCIOUS SEDATION 07/09/2023 HISTORY: ORDERING SYSTEM PROVIDED HISTORY: Reason for Exam: port not aspirating TECHNIQUE: The previously accessed MediPort (Lujan needle) was injected with contrast and fluoroscopic images are obtained. CONTRAST: 20 cc of Visipaque SEDATION: Moderate sedation was ordered and supervised by the attending with physician [id number] monitoring. Medications were provided and recorded by Radiology nurses. FLUOROSCOPY DOSE AND TYPE: Radiation Exposure Index: 12 AK, total fluoro time was 22 seconds DESCRIPTION OF PROCEDURE: Informed consent was obtained after a detailed explanation of the procedure including risks, benefits, and alternatives. Felt protocol was observed. Sterile gowns, masks, hats [...] Sign Date: 07/10/2023 10:42:17 AM Ordering Provider: Pending sale to [facility] ([place])07-10-2023 Note System generated consult for an established nephrostomy tube and was exchanged yesterday. Securement DSG: gauze & transparent DSG is dry and intact. Recommend to change as needed at least every 7days. Digitally Signed by Rhea Pruett RN, Skin Team on 07/10/2023 09:37 AM [facility] [id number] Note IR Procedure Record Summary Primary Physician: JOHANNA JEAN BAPTISTE MD Finalized Date/Time: 07/10/23 09:11:10 Pt. Name: ANTONELLA LALY L /Sex: 1990 Female Med Rec #: [id number] Physician: FLIP MARTIN MD Financial #: [id number] Pt. Type: I Room/Bed: [facility]/A Admit/Disch: 07/08/23 20:11:38 - Institution: Allergies identified in patient's electronic medical record at time of printing on 07/10/23 Entry 1 Entry 2 Substance Oranges penicillin Reaction Type Allergy Allergy Last Modified By: JAMAL Scott RN Evan 02/03/21 10/04/22 08:25:47 17:13:24 Case Attendance- IR Entry 1 Entry 2 Entry 3 Case Attendee JOHANNA JEAN BAPTISTE MD, Tracie N RN Lee, RN Melanie L Role Performed Primary Surgeon Procedure Nurse Tin Flopper 1 Details Time In 07/09/23 11:45:00 07/09/23 [...] Perc W/Guide S Last Modified By: Elaine Picking Crew Supervisor Elaine, Picking Crew Supervisor Elaine, Picking Crew Supervisor Lida K 07/09/23 Lida K 07/09/23 Lida K 07/09/23 14:10:01 14:10:01 14:10:01 Entry 4 Entry 5 Entry 6 Case Attendee Padmini Fairchild Picking Crew SupervisorMarisa Jaramillo RN Role Performed Scrub Technologist Circulating [...] Perc W/Guide S Last Modified By: Elaine Picking Crew Supervisor Elaine Picking Crew Supervisor Elaine, Picking Crew Supervisor Lida K 07/09/23 Lida K 07/09/23 Lida K 07/09/23 14:10:01 14:10:01 14:10:01 Entry 7 Entry 8 Entry 9 Case Attendee Karolina Prater, Picking Crew SupervisorCristina Mckeon RN Role Performed Scrub Technologist Circulating [...] Amanda K 07/09/23 Lida Piper 07/09/23 Lida K 07/09/23 14:10:01 14:10:01 14:10:01 [...] Amanda K 07/09/23 Lida Piper 07/09/23 Lida K 07/09/23 14:10:23 14:10:30 14:10:42 Radiology Procedure Details - IR Entry 1 Radiology Sedation Case Times Sedation Start Time 07/09/23 12:22:00 Sedation Stop Time 07/09/23 13:45:00 Sedation Total Time 1hr 23min Radiology - Fluid/Drainage Radiology Contrast Contrast Used? Yes Dose 100 mL Medication OMNIPAQUE 300 50ML 10/PK Y-[address] [facility] [id number] Radiology Flouroscopy Fluoroscopy Used? Yes Fluoro Dose [...] 07/09/23 Lida Piper 07/09/23 Lida Piper 07/09/23 13:03:12 13:03:12 13:04:16 Entry 7 Entry [...] MD Back from: Last Modified By: Elaine Picking Crew Supervisor Elaine, Picking Crew Supervisor Human, Picking Crew Supervisor Lida K 07/09/23 Lida K 07/09/23 Lida [...] Back from: Last Modified By: Sam Henry, Picking Crew Supervisor Elaine, Picking Crew Supervisor Lida K 07/09/23 Lida K 07/09/23 Lida [...] By: Sam Henry Rad Tech Amanda K 07/09/23 Lida Piper 07/09/23 13:21:18 13:31:12 Procedure Case Times- IR [...] Present for Time Out Cristina Simons RN, Polo RN Gurinder Lai Megan R Picking Crew SupervisorAngela Picking Crew Supervisor Grace Instrument Sterility Procedure IR Nephrostomy Tube [...] Radiology - Action Plan Outcomes Met? Yes Exhibit Designer Cristina Simons RN Completing Procedure Plan Last Modified By: Cristina Simons RN 07/09/23 12:00:09 Case Comments Added Jese CAtheter and 2nd stiff glidewire used from bag and tag product wrappers so patient couldbe charged appropriately. [facility] RT-R(CV) [employer] Finalized By: Ana Tipton Document Signatures Signed By: Sam Henry 07/09/23 14:14 Ana Tipton 07/10/23 09:11 [facility] [id number] History and physical note Date of Service [...] problem. She was most recently admitted to [facility] on 04/27 to05/07/23. She was subsequently discharged on daptomycin and ciprofloxacin to continue until 05/16. She was also seen at [facility] on 07/07. At that time, she [...] outpatient management per . She presented to [facility] again 07/08/23 with complaints of dysuria, flank pain, vomiting with suspected UTI/kidney infection per patient. A urinalysis and urine culture were obtained there, however records are not with the patient upon evaluation. She was transferred from [facility] emergency department to [place] emergency department with plan for direct [facility]. She is currently awaiting bed placement at [...] breathing, constipation, new vaginal or vulvar lesions. 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 Amenorrheic since initiation of Chemoradiation. Denies mammogram ever. Colonoscopy in 2019. Denies history of STDs. Not sexually active. Family History Mother with breast cancer Sister with cervical cancer Grandmother with cervical cancer Aunts with cervical cancer Cousins with cervical cancer ONCOLOGY HISTORY: - 04/04/2020: CT scan abdomen and pelvis. [facility]. Thickened cervical wall with involvementof the lower [...] underwent for intracavitary brachii therapy applications with [id number]-rhaq-wvqv iridium 192afterloading device utilizing a tandem and [...] Start Date End Date Elapsed Days IMRT CERTIFIED PROFESSIONAL MIDWIFE Pelvis 6X 180 4,500 04/26/2020 06/02/2020 37 3D PM Bst 18X 180 540 06/05/2020 06/07/2020 2 GENETIC TESTING: - Patient [facility] No reportable somatic or germline [...] ciprofloxacin until 05/16 -07/07/23 Patient presented to [facility] for UTI symptoms. - Urinalysis on 07/07 was remarkable for signs of UTI at [facility]. Patient was placed on BactrimDS twice daily x10 days for outpatient management after discussion with Dr. Hilliard. - 07/07/23 CT abdomen/pelvis obtained at that time showed Left-sided nephrostomy is present extendingto the bladder. There is an irregularly shaped hypodense focus in the upper pole of the kidney without enhancement. Mucosal thickening versus underfilling of the colon. -07/08 Patient again presents to [facility] with transfer to [facility] for direct admission. -Patient notes dysuria, flank [...] was supposed to see Dr. Andrea at [facility]. Referral was sent to this provider to be scheduled end of May/early June. Patient did not dothis. -Discussion with Dr. Martin via telehealth visit, patient was encouraged again to follow-up with [facility] urology for possible nephrectomy in order [...] ANGELA ALVARADO DO on 07/09/2023 04:30 AM [facility] [id number] Note ORIGINAL PROCEDURE: IR NEPHROSTOMY TUBE CHANGE MODERATE CONSCIOUS SEDATION 07/09/2023 HISTORY: ORDERING SYSTEM PROVIDED HISTORY: Reason for Exam: Overdue for nephrostomy tube exchange, last changed in April Routine nephroureteral stent check unchanged TECHNIQUE: Parada portions of the exam: 1. Retrieval of foreign body. 2. Antegrade nephrostogram. 3. Angioplasty of the ureter. 4. Replacement of nephroureteral stent with up sizing to 10 Guamanian CONTRAST: 80 cc SEDATION: Moderate sedation was ordered and supervised by the attending with physician [id number] monitoring. Medications were provided and recorded by Radiology nurses. FLUOROSCOPY DOSE AND TYPE: Radiation Exposure Index: 26.1 minutes of fluoroscopic time was 344 AKA, DESCRIPTION OF PROCEDURE: Informed consent was obtained after a detailed explanation of the procedure including risks, benefits, and alternatives. Felt protocol was observed. Sterile gowns, masks, hats [...] made to attempt exchange of an 8 Guamanian nephroureteral stent. Under fluoroscopic guidance, a all [...] significant amount of backwards pressure, the 8 Guamanian nephroureteral stent is unable to be pulled. [...] the bladder. At this point, a 7 Guamanian 45 cm sheath is now advanced into the bladder from the nephrostomy tube access through the ureter at which point, a 15 mm 6 Guamanian snare is advanced and used to snare the broken piece of 014 wire with retrieval of foreign body performed. Next, a new nephroureteral stent is advanced. Given that the 8 Guamanian had occluded previously, decision was made to place a 10 Guamanian nephroureteral stent. Over the stiff glide, a [...] Date: 07/10/2023 1:33:51 PM Ordering Provider: SASHA [facility]09-06-2023 Note ORIGINAL PROCEDURE: VR PORTOGRAPHY MODERATE CONSCIOUS SEDATION 07/09/2023 HISTORY: ORDERING SYSTEM PROVIDED HISTORY: Reason for Exam: port not aspirating TECHNIQUE: The previously accessed MediPort (Lujan needle) was injected with contrast and fluoroscopic images are obtained. CONTRAST: 20 cc of Visipaque SEDATION: Moderate sedation was ordered and supervised by the attending with physician [id number]-[id number] monitoring. Medications were provided and recorded by Radiology nurses. FLUOROSCOPY DOSE AND TYPE: Radiation Exposure Index: 12 AK, total fluoro time was 22 seconds DESCRIPTION OF PROCEDURE: Informed consent was obtained after a detailed explanation of the procedure including risks, benefits, and alternatives. Felt protocol was observed. Sterile gowns, masks, hats [...] Date: 07/10/2023 10:42:17 AM Ordering Provider: MADELINE APARICIOSheltering Arms [id number] Evaluation + Plan note Extracted from: Title:Tire Repairer/Onc History and Physical Author:ANGELA ALVARADO DO Date:07/09/23 [...] ciprofloxacin until 05/16 -07/07/23 Patient presented to [facility] for UTI symptoms. - Urinalysis on 07/07 was remarkable for signs of UTI at [facility]. Patient was placed on Bactrim DS twice daily x10 days for outpatient management after discussion with Dr. Hilliard. - 07/07/23 CT abdomen/pelvis obtained at that time showed Left-sided nephrostomy is present extending to the bladder. There is an irregularly shaped hypodense focus in the upper pole of the kidney without enhancement. Mucosal thickening versus underfilling of the colon. -07/08 Patient again presents to [facility] with transfer to [facility] for direct admission. -Patient notes dysuria, flank [...] was supposed to see Dr. Andrea at [facility]. Referral was sent to this provider to be scheduled end of May/early June. Patient did not do this. -Discussion with Dr. Martin via telehealth visit, patient was encouraged again to follow-up with [facility] urology for possible nephrectomy in order [...] Date:07/30/2023 11:30:00 AM Scheduled Provider:FLIP MARTIN MD Location:CERTIFIED PROFESSIONAL MIDWIFE ONC Appointment Type:SO OV Follow Up Future Scheduled Tests Laboratory* Pathology Tire Repairer Request 05/15/23 * Urinalysis 02/14/23 Radiology* IR [...] BD Bone Density DEXA Axial Skeleton 05/15/23 [facility] 09-06-2023 Procedure note INTERVENTIONAL RADIOLOGY POST PROCEDURE NOTE Pre-Procedure Diagnosis: Routine nephroureteral stent check and change Post Procedure Diagnosis: Same. Broke Beater Operator: Dr. Johanna Jean Baptiste MD Procedure: 1. Retrieval of foreign body. 2. Antegrade nephrostogram. 3. Angioplasty of the left ureter. 4. Nephrostomy tube check and change with upsizing Anesthesia: Conscious sedation Findings: The 8 Guamanian nephroureteral stent had occluded distally with a Glidewire unable to penetrate into the bladder. Mukund wire placed with balloon angioplasty of the distal ureter performed to a4 mm balloon. Successful 8 Guamanian nephroureteral stent check and change into 10 Guamanian nephroureteral stent placement. 014 wire had broken [...] JEAN BAPTISTE MD on 07/09/2023 01:56 PM [facility] [id number] History and physical note Date of Service [...] problem. She was most recently admitted to [facility] on 04/27 to05/07/23. She was subsequently discharged on daptomycin and ciprofloxacin to continue until 05/16. She was also seen at [facility] on 07/07. At that time, she [...] outpatient management per . She presented to [facility] again 07/08/23 with complaints of dysuria, flank pain, vomiting with suspected UTI/kidney infection per patient. A urinalysis and urine culture were obtained there, however records are not with the patient upon evaluation. She was transferred from [facility] emergency department to [place] emergency department with plan for direct admission to [facility]. She is currently awaiting bed placement at [...] breathing, constipation, new vaginal or vulvar lesions. 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 Amenorrheic since initiation of Chemoradiation. Denies mammogram ever. Colonoscopy in 2020. Denies history of STDs. Not sexually active. Family History Mother with breast cancer Sister with cervical cancer Grandmother with cervical cancer Aunts with cervical cancer Cousins with cervical cancer ONCOLOGY HISTORY: - 04/04/2020: CT scan abdomen and pelvis. [facility]. Thickened cervical wall with involvementof the lower [...] underwent for intracavitary brachii therapy applications with yzza-pfup-nwoj iridium 192afterloading device utilizing a tandem and [...] Start Date End Date Elapsed Days IMRT CERTIFIED PROFESSIONAL MIDWIFE Pelvis 6X 180 4,500 04/26/2020 06/02/2020 37 3D PM Bst 18X 180 540 06/05/2020 06/07/2020 2 GENETIC TESTING: - Patient had genetic testing sent through [facility]. No reportable somatic or germline pathogenic or [...] ciprofloxacin until 05/16 -07/07/23 Patient presented to [facility] for UTI symptoms. - Urinalysis on 07/07 was remarkable for signs of UTI at [facility]. Patient was placed on BactrimDS twice daily x10 days for outpatient management after discussion with Dr. Hilliard. - 07/07/23 CT abdomen/pelvis obtained at that time showed Left-sided nephrostomy is present extendingto the bladder. There is an irregularly shaped hypodense focus in the upper pole of the kidney without enhancement. Mucosal thickening versus underfilling of the colon. -07/08 Patient again presents to [facility] with transfer to [facility] for direct admission. -Patient notes dysuria, flank [...] was supposed to see Dr. Andrea at [facility]. Referral was sent to this provider to be scheduled end of May/early June. Patient did not dothis. -Discussion with Dr. Martin via telehealth visit, patient was encouraged again to follow-up with [facility] urology for possible nephrectomy in order [...] ANGELA ALVARADO DO on 07/09/2023 04:30 AM [facility] [id number] History and physical note Date of Service [...] problem. She was most recently admitted to [facility] on 04/27 to05/07/23. She was subsequently discharged on daptomycin and ciprofloxacin to continue until 05/16. She was also seen at [facility] on 07/07. At that time, she [...] outpatient management per . She presented to [facility] again 07/08/23 with complaints of dysuria, flank pain, vomiting with suspected UTI/kidney infection per patient. A urinalysis and urine culture were obtained there, however records are not with the patient upon evaluation. She was transferred from [facility] emergency department to [place] emergency department with plan for direct admission to [facility]. She is currently awaiting bed placement at [...] breathing, constipation, new vaginal or vulvar lesions. 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 Amenorrheic since initiation of Chemoradiation. Denies mammogram ever. Colonoscopy in 2019. Denies history of STDs. Not sexually active. Family History Mother with breast cancer Sister with cervical cancer Grandmother with cervical cancer Aunts with cervical cancer Cousins with cervical cancer ONCOLOGY HISTORY: - 04/04/2020: CT scan abdomen and pelvis. [facility]. Thickened cervical wall with involvementof the lower [...] underwent for intracavitary brachii therapy applications with [id number]-fbcr-ezcp iridium 192afterloading device utilizing a tandem and [...] Start Date End Date Elapsed Days IMRT CERTIFIED PROFESSIONAL MIDWIFE Pelvis 6X 180 4,500 04/26/2020 06/02/2020 37 3D PM Bst 18X 180 540 06/05/2020 06/07/2020 2 GENETIC TESTING: - Patient had genetic testing sent through [facility]. No reportable somatic or germline pathogenic or [...] ciprofloxacin until 05/16 -07/07/23 Patient presented to [facility] for UTI symptoms. - Urinalysis on 07/07 was remarkable for signs of UTI at [facility]. Patient was placed on BactrimDS twice daily x10 days for outpatient management after discussion with Dr. Hilliard. - 07/07/23 CT abdomen/pelvis obtained at that time showed Left-sided nephrostomy is present extendingto the bladder. There is an irregularly shaped hypodense focus in the upper pole of the kidney without enhancement. Mucosal thickening versus underfilling of the colon. -07/08 Patient again presents to [facility] with transfer to [facility] for direct admission. -Patient notes dysuria, flank [...] was supposed to see Dr. Andrea at [facility]. Referral was sent to this provider to be scheduled end of May/early June. Patient did not dothis. -Discussion with Dr. Martin via telehealth visit, patient was encouraged again to follow-up with [facility] urology for possible nephrectomy in order [...] ANGELA ALVARADO DO on 07/09/2023 04:30 AM [id number] History and physical note Date of Service [...] problem. She was most recently admitted to [facility] on 04/27 to05/07/23. She was subsequently discharged on daptomycin and ciprofloxacin to continue until 05/16. She was also seen at [facility] on 07/07. At that time, she [...] outpatient management per . She presented to [facility] again 07/08/23 with complaints of dysuria, flank pain, vomiting with suspected UTI/kidney infection per patient. A urinalysis and urine culture were obtained there, however records are not with the patient upon evaluation. She was transferred from [facility] emergency department to [place] emergency department with plan for direct admission to [facility]. She is currently awaiting bed placement at [...] breathing, constipation, new vaginal or vulvar lesions. 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 Amenorrheic since initiation of Chemoradiation. Denies mammogram ever. Colonoscopy in 2019. Denies history of STDs. Not sexually active. Family History Mother with breast cancer Sister with cervical cancer Grandmother with cervical cancer Aunts with cervical cancer Cousins with cervical cancer ONCOLOGY HISTORY: - 04/04/2020: CT scan abdomen and pelvis. [facility]. Thickened cervical wall with involvementof the lower [...] underwent for intracavitary brachii therapy applications with jnbc-pvfb-agsx iridium 192afterloading device utilizing a tandem and ring. 2400 cGy was delivered at 600 cGy per fraction to point A from June 14, 2020 through July 11, 2020. The plan was to deliver 5 brachytherapy applications, however, the patient failed to show for surgery 3 times. Therefore, the decision to forego the last treatment was made as it had been nearly 3 months since initiating therapy. Course: C1 Pelvis Treatment Site Ref. ID Energy Dose/Fx (cGy) #Fx Total Dose (cGy) Start Date End Date Elapsed Days IMRT CERTIFIED PROFESSIONAL MIDWIFE Pelvis 6X 180 4,500 04/26/2020 06/02/2020 37 3D PM Bst 18X 180 540 06/05/2020 06/07/2020 2 GENETIC TESTING: - Patient had genetic testing sent through [facility]. No reportable somatic or germline pathogenic or [...] ciprofloxacin until 05/16 -07/07/23 Patient presented to [facility] for UTI symptoms. - Urinalysis on 07/07 was remarkable for signs of UTI at [facility]. Patient was placed on BactrimDS twice daily x10 days for outpatient management after discussion with Dr. Hilliard. - 07/07/23 CT abdomen/pelvis obtained at that time showed Left-sided nephrostomy is present extendingto the bladder. There is an irregularly shaped hypodense focus in the upper pole of the kidney without enhancement. Mucosal thickening versus underfilling of the colon. -07/08 Patient again presents to [facility] with transfer to [facility] for direct admission. -Patient notes dysuria, flank [...] was supposed to see Dr. Andrea at [facility]. Referral was sent to this provider to be scheduled end of May/early June. Patient did not dothis. -Discussion with Dr. Martin via telehealth visit, patient was encouraged again to follow-up with [facility] urology for possible nephrectomy in order [...] ANGELA ALVARADO DO on 07/09/2023 04:30 AM [facility] [id number] History and physical note Date of Service [...] problem. She was most recently admitted to [facility] on 04/27 to05/07/23. She was subsequently discharged on daptomycin and ciprofloxacin to continue until 05/16. She was also seen at [facility] on 07/07. At that time, she [...] outpatient management per . She presented to [facility] again 07/08/23 with complaints of dysuria, flank pain, vomiting with suspected UTI/kidney infection per patient. A urinalysis and urine culture were obtained there, however records are not with the patient upon evaluation. She was transferred from [facility] emergency department to [place] emergency department with plan for direct admission to [facility]. She is currently awaiting bed placement at [...] breathing, constipation, new vaginal or vulvar lesions. 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 Amenorrheic since initiation of Chemoradiation. Denies mammogram ever. Colonoscopy in 2020. Denies history of STDs. Not sexually active. Family History Mother with breast cancer Sister with cervical cancer Grandmother with cervical cancer Aunts with cervical cancer Cousins with cervical cancer ONCOLOGY HISTORY: - 04/04/2020: CT scan abdomen and pelvis. [facility]. Thickened cervical wall with involvementof the lower [...] underwent for intracavitary brachii therapy applications with nucq-cywy-ozwd iridium 192afterloading device utilizing a tandem and [...] Start Date End Date Elapsed Days IMRT CERTIFIED PROFESSIONAL MIDWIFE Pelvis 6X 180 4,500 04/26/2020 06/02/2020 37 3D PM Bst 18X 180 540 06/05/2020 06/07/2020 2 GENETIC TESTING: - Patient had genetic testing sent through [facility]. No reportable somatic or germline pathogenic or [...] ciprofloxacin until 05/16 -07/07/23 Patient presented to [facility] for UTI symptoms. - Urinalysis on 07/07 was remarkable for signs of UTI at [facility]. Patient was placed on BactrimDS twice daily x10 days for outpatient management after discussion with Dr. Hilliard. - 07/07/23 CT abdomen/pelvis obtained at that time showed Left-sided nephrostomy is present extendingto the bladder. There is an irregularly shaped hypodense focus in the upper pole of the kidney without enhancement. Mucosal thickening versus underfilling of the colon. -07/08 Patient again presents to [facility] with transfer to [facility] for direct admission. -Patient notes dysuria, flank [...] was supposed to see Dr. Andrea at [facility]. Referral was sent to this provider to be scheduled end of May/early June. Patient did not dothis. -Discussion with Dr. Martin via telehealth visit, patient was encouraged again to follow-up with [facility] urology for possible nephrectomy in order [...] ANGELA ALVARADO DO on 07/09/2023 04:30 AM [facility] [id number] Hospital Discharge instructions Patient Education 05/07/2023 16:32:38 [...] Treatment for this condition includes: Antibiotic medicine. Ytzh-dtc-ttchiwx medicines to treat discomfort. Drinking enough water [...] Follow these instructions at home: Medicines Take kvan-cwl-mwzvszd and prescription medicines only as told by [...] 07/30/2006 Document Revised: 10/07/2019 Document Reviewed: 04/29/2019 [employer] Patient Education 2020 [employer] Follow Up Care 04/27/2023 16:04:23 With:[facility] [phone] Address:Unknown When:05/13/2023 14:00:00 Comments:This is the initial appointment for your chest port needle/dressing change if you are unable to schedule yourself for Friday with [facility] when you call on Friday. Please call to cancel this appointment if you are able to get an appointment with [facility]. With:[facility] (labwork and port needle/dressing changes) [phone] Address: When: Unknown Comments:The slope runner who would schedule you for this dressing change is out of the office this week. Nursing blacksmith supervisor was unable to schedule you as well. You will need to call them to schedule your appointments after discharge for future weekly dressing changes every Friday. Labwork does not have to be scheduled ahead of time (allow walk-ins). With:FLIP MARTIN MD Address: [address] [place] [address] [place] [address] [phone] When:05/15/2023 15:20:00 [facility] 07-05-2023 Note Discharge Instructions Thank you for allowing [facility] to assist you with your healthcare needs. [...] 05/15/2023 03:20 PM EDT FLIP MARTIN MD [facility] [address] [place] [phone] IR Neph Cath-Neph Ureter W/Guide Left 06/24/2023 11:00 AM EDT IR Follow Up Appointments Follow Up with FLIP MARTIN MD When 05/15/2023 03:20 PM EDT Where: [address] [facility] [place] [address] [phone] Follow Up with [facility] [phone] When 05/13/2023 02:00 PM EDT Why: This is the initial appointment for your chest port needle/dressing change if you are unable to schedule yourself for Friday with [facility] when you call on Friday. Please call to cancel this appointment if you are able to get an appointment with [facility]. Follow Up with [facility] (labwork and port needle/dressing changes) [phone] When Why: The slope runner who would schedule you for this dressing change is out of the office this week. Nursing blacksmith supervisor was unable to schedule you as [...] can cap the tube - notify IR [id number], 04/29/23 10:34:14 EDT The Following Treatments Have Been Ordered for You Discharge Labs Discharge Outpatient Labwork - Ordered -- Chest Port Care/ Labs, Chemo/ATB infusion, Your appointment is: 05/13/23 14:00:00 EDT, Stop Datefor chest port care/labs is 05/16/2023., 05/07/23 14:48:00 EDT Discharge Outpatient Labwork - Ordered -- CBC, differential, hepatic panel, renal panel and CPK every Friday and send results to fax number [phone] Ruvalcaba CBC, differential, hepatic panel, [...] 12 hours Duration: 10 Days Pickup at [facility] New DAPTOmycin (DAPTOmycin 500 mg intravenous injection) 383.4 Milligram Intravenous Every 24 hours Duration: 10 Days Pickup at [facility] Changed LORazepam (LORazepam 1 mg oral tablet) [...] hours as needed for Pain Pharmacy Information [facility]: [address] [place] [address] [phone] Please take this list to your next [...] Treatment for this condition includes: Antibiotic medicine. Xbzy-dlp-cydmpyt medicines to treat discomfort. Drinking enough water [...] Follow these instructions at home: Medicines Take gpun-mfj-blnxtxc and prescription medicines only as told by [...] 07/30/2006 Document Revised: 10/07/2019 Document Reviewed: 04/29/2019 [employer] Patient Education 2020 [employer]. Additional Information VACCINATE! IT SAVES LIVES! Members of the community who have not yet received the COVID-19 vaccine and would like to receive it can visit one of [facility] vaccine clinics. There are many vaccine clinic locations within the [facility]. For locations and available times, please visit [email or web address] It is important to note that some COVID mobile vaccine clinics are held outdoors and may be canceled in rainy or stormy conditions. To learn more about pediatric vaccinations (ages 5-11), we invite you to visit the [facility] webpage. [email or web address].org/pages/[email or web address]-Btxmv-Twejcbtorbc-Awmroaqodh-Ybjnp-Xmv stions.htmlTo learn more about the COVID-19 vaccine, we invite you to visit the CDC website for a list of frequently asked questions.https://www.cdc.gov/coronavirus/2019-ncov/vaccines/faq.html [facility] Patient Portal Access Instructions: Stay connected with your healthcare team and access your personal medical information anytime with the [facility] Patient Portal. Please follow the directions below to create your [facility] account: 1.Access the email account you provided upon registration to the hospital/physician office.2.Look for an invitation email from [facility].3.Open the email and access the invitation link: AcceptInvitation to [employer].4.Fill in the required quintero to create your account. To access your account, visit [email or web address]. Click the blue button labeled Access Patient [...] who you will allowto register on the [facility] Patient Portal for access to your information. You can also access the [employer] One[facility] Patient Portal on the [employer] joya. Simply click on Patient Portal and then log into your account. If you would like to receive a full copy of your medical records, please contact the [facility] Medical Records Department by calling [phone], Friday through Friday between 8 a.m. and [...] Call your local pharmacy or go to [email or web address] to find one close to you.3.Make use of household items: Use cat litter or old coffee grounds to dispose medications if other options arenot available. Mix your drugs with these household products, seal them in an airtight container andthrow it into the garbage. [facility]: [phone] to be sure your drugs can be [...] been reviewed and explained to me and ANTONELLA Smith RACHAEL L understand my current condition and have read and understand these discharge instructions. I have received a written copy of the plan/instructions. If I have questions, I am aware that I should contact my doctor. Patient/Wire Hanger Signature: Date/Time: Relationship to Patient: Witness Name/Signature: Date/Time: [facility] [id number] Note Date of Service 05/07/2023 Chief Complaint [...] sent to Dr. CondonFriday. Plan for discharge today. IV Abx can be given through patient's port. For DEXA scan outpatient considering new finding of possible sacral fracture. Digitally Signed by NOLAN MOODY MD on 05/07/2023 06:31 AM [facility] HospitalZzqiztbf57-45-1330 Note Date of Service 05/07/2023 Chief Complaint [...] NOLAN MOODY MD on 05/07/2023 06:31 AM [facility] HospitalXmtxkkqu03-69-3077 Note Date of Service 05/06/2023 Chief Complaint [...] AM Digitally Signed by CLOTILDE GARCIA MD [facility] HospitalNkucpnrx74-68-1037 Note Date of Service 05/05/23 Chief Complaint [...] TIMO MENCHACA DO on 05/05/2023 06:48 AM [facility] HospitalPkrulquy93-79-9175 Infectious disease Progress note Date of Service [...] Friday and send results to fax number [phone] Ruvalcaba Please call Dr. Ruvalcaba's office for a follow-up appointment in 2 weeks, Phone number [phone]. Digitally Signed by Emili Clark RN on 05/05/2023 10:48 AM Digitally Signed by NATHAN BASILIO MD on 05/05/2023 02:48 PM [facility] HospitalVcpayrhz93-09-0603 Note Date of Service 05/05/23 Chief Complaint [...] TIMO MENCHACA DO on 05/05/2023 06:48 AM [facility] HospitalNglskukn74-00-3833 Infectious disease Consult note Date of Service 05/03/2023 Reason for Consultation Complicated UTI-polymicrobial Referring Physician Dr. Martin History of Present Illness This is a 32 yo female with history of Stage III cervical cancer s/p chemoradiation currently in remission, presents to [facility] emergency room for concern for UTI and [...] for antimicrobial management. Discussed the case with INTERVENTION SPECIALIST team yesterday, patient continues to note improvement so far on current antibiotic therapy with 3 attention and abdominal discomfort Review of Systems Urinary retention abdominal pain and bilateral flank pain and generalized fatigue, otherwise [id number] point review of system was recent fevers [...] s/p chemoradiation currently in remission, presents to [facility] emergency room for concern for UTI and [...] she agreed to the plan Discussed with INTERVENTION SPECIALIST team yesterday Thank you for this consultation, [...] Signed by Brenda López Licensed Scribe on 05/03/2023 09:45 AM Digitally Signed by MARGOTH RUVALCABA BA, MD on 05/03/2023 10:12 AM [facility] HospitalHgvckgzy76-57-4130 Palliative care Progress note Date of Service [...] worsening abdominal and back pains. Patient returns [facility] on 04/27/2023 with similar symptoms of abdominal [...] supportive and involved in her life. Per [place] revised code in the event she is [...] by NUBIA POWERS on 05/01/2023 10:55 AM [facility] HospitalTpvjeosy02-07-6315 Note IR Procedure Record Summary Primary Physician: MADELINE APARICIO MD Finalized Date/Time: 05/01/23 09:20:17 Pt. Name: LALY NAVAS/Sex: 1990 Female Med Rec #: [id number] Physician: FLIP MARTIN MD Financial #: [id number] Pt. Type: I Room/Bed: [facility]/A Admit/Disch: 04/27/23 16:03:09 - Institution: Allergies identified in patient's electronic medical record at time of printing on 05/01/23 Entry 1 Entry 2 Substance Oranges penicillin Reaction Type Allergy Allergy Last Modified By: JAMAL Scott RN Evan 02/03/21 10/04/22 08:25:47 17:13:24 Case Attendance- IR Entry 1 Entry 2 Entry 3 Case Attendee MADELINE APARICIO MD, Colten G Herrick [employer] Leatha Boyce Role Performed Primary Surgeon Circulating Technologist Scrub [...] 10:38:09 Entry 4 Entry 5 Case Attendee Elaine [employer] JAMAL Feliciano Role Performed Tin Flopper 1 Procedure Nurse Details Time In 04/29/23 [...] mL Medication OMNIPAQUE 300 50ML 10/PK Y-[address] [facility] [id number] Radiology Flouroscopy Fluoroscopy Used? Yes Fluoro Dose (mGy) 54.12 Fluoro Time 3.1mins Radiology Local Local Used? Yes Local Type: lidocaine 2% Local Dose 10cc Radiology Procedure Site Site/Location Lt side back Site Condition No complications Suture 0 Prolene Dressing Type Gauze sponge 4 X 4, Tagaderm Technologist Notes 8.7NZn54vl [place] Nephroureterostomy Stent inserted on the LT side [...] Radiology - Action Plan Outcomes Met? Yes Exhibit Designer JAMAL Feliciano Completing Procedure Plan Last Modified By: JAMAL Feliciano 04/29/23 10:19:46 Case Comments Finalized By: Karolina Prater Document Signatures Signed By: JAMAL Harding 04/29/23 13:59 JAMAL Harding 04/29/23 15:12 Karolina Prater 04/29/23 15:28 Waldemar Winters 04/29/23 10:38 Waldemar Winters 04/29/23 10:39 Waldemar Winters 04/29/23 10:39 Sam Granger Leatha L 04/29/23 10:42 Waldemar Winters 04/29/23 10:38 Karolina Prater 04/29/23 13:16 Karolina Prater 04/29/23 13:17 Karolina Prater 04/29/23 13:17 JAMAL Harding 04/29/23 13:53 JAMAL Harding 04/29/23 13:56 JAMAL Harding 04/29/23 13:59 Karolina Prater 05/01/23 09:20 [facility] [id number] Note ORIGINAL HISTORY: ORDERING SYSTEM PROVIDED HISTORY: Reason for Exam: Patient with UTI and nephrostomy tube not replaced since 02/17 COMPARISON: CT 04/27/23; last change 02/17/23 PROCEDURE: 1. Nephroureteral drain tube exchange under fluoroscopy LATERALITY: Left WOOD REPATCHER: Dr. Aparicio EMBROIDERER: None The procedure, risks, and alternatives, were discussed and all questions were answered. Informed consent obtained. Maximal sterile barrier technique, hand hygiene, skin prep, and sterile ultrasound techniques (if used) utilized. Percutaneous site was sterilely prepped and draped. Time out performed. Maxillofacial Prosthodontist image demonstrates stable appearance of the nephroureteral [...] nursing personnel under direct supervision by the log yard derrick operator. SEDATION TIME (min): 50 FLUORO (min): [...] Sign Date: 04/30/2023 3:21:11 PM Ordering Provider: SYIBL LYNCH [facility] HospitalSgcukcus88-27-2144 Note Nephrostomy site with gauze & transparent dressing, no complications. Bag with yellow urine noted. Digitally Signed by JAMAL Phipps on 04/30/2023 02:47 PM [facility] HospitalLhznhjdz99-10-3854 Palliative care Consult note Date of Service 04/30/2023 Reason for Consult Pain management Referring physician: Dr. Vinnie Sotelo Chief complaint: Left flank pain and abdominal pain History of Present Illness Patient is a 32-year-old female with past medical history of stage IIIb cervical cancer (status post chemoradiation, currently in remission), hydronephrosis (left nephrostomy tube since 2019), frequent UTIs. Patient noted with multiple readmissions. Last admission on 02/23/2023 for a worsening abdominal and back pains. Patient returns [facility] on 04/27/2023 with similar symptoms of abdominal [...] worsening abdominal and back pains. Patient returns [facility] on 04/27/2023 with similar symptoms of abdominal pain and flank pain. Patient is status post nephro tube exchange, continues on antibiotic for UTI. Patient continues with uncontrolled cancer related pain, palliative [...] biological sister, Zandra. I educated patient per [place] revised code in the event she is [...] Cancer related pain I have reviewed the [place] Automated Rx Reporting System (OARRS) report for [...] by NUBIA POWERS on 04/30/2023 11:33 AM [facility] [id number] Note Patient not in room. Plan for Nephrostomy exchange today. Will reassess later. Digitally Signed by JAMAL Phipps on 04/29/2023 11:07 AM [facility] HospitalDcrgvwzp40-59-4443 Note ORIGINAL HISTORY: ORDERING SYSTEM PROVIDED HISTORY: Reason for Exam: Patient with UTI and nephrostomy tube not replaced since 02/17 COMPARISON: CT 04/27/23; last change 02/17/23 PROCEDURE: 1. Nephroureteral drain tube exchange under fluoroscopy LATERALITY: Left WOOD REPATCHER: Dr. Aparicio EMBROIDERER: None The procedure, risks, and alternatives, were discussed and all questions were answered. Informed consent obtained. Maximal sterile barrier technique, hand hygiene, skin prep, and sterile ultrasound techniques (if used) utilized. Percutaneous site was sterilely prepped and draped. Time out performed. Maxillofacial Prosthodontist image demonstrates stable appearance of the nephroureteral [...] nursing personnel under direct supervision by the log yard derrick operator. SEDATION TIME (min): 50 FLUORO (min): [...] Sign Date: 04/30/2023 3:21:11 PM Ordering Provider: [facility]06-27-2023 Procedure note Brief IR Post Procedure Note - Inpatient/Obs Pre Procedure Dx: Cancer, left hydro Post Procedure Dx: Same Procedure: 1. Left PCNU dry ice machine operator: Markus Indian Blanket Weaver: None Anesthesia: Local, moderate sedation EBL: Minimal [...] tube. Full report to follow. Orders in [facility]. Madeline Aparicio MD Vascular & Interventional Radiology [facility] ([facility]) Vamsi [email or web address] Pager: [phone] [facility] IR Dept (26/05): [id number] [facility] [phone] [facility] Digitally Signed by MADELINE APARICIO MD on 04/29/2023 10:33 AM [facility] [id number] History and physical note Date of Service 04/27/23 Chief Complaint Unable to uinate X 9 days. 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 History of Present Illness 32 yo Woman with history of Stage IIIB cervical cancer s/p chemoradiation currently in remission, presents to [facility] emergency room for concern for UTI and [...] subsequently admitted for treatment of complicated UTI. 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 Amenorrheic since initiation of Chemoradiation. Denies mammogram ever. Colonoscopy in 2020. Denies history of STDs. Not sexually active. Family History Mother with breast cancer Sister with cervical cancer Grandmother with cervical cancer Aunts with cervical cancer Cousins with cervical cancer ONCOLOGY HISTORY: - 04/04/2020: CT scan abdomen and pelvis. [facility]. Thickened cervical wall with involvementof the lower [...] underwent for intracavitary brachii therapy applications with glbm-pxqb-xhpc iridium 192afterloading device utilizing a tandem and [...] Start Date End Date Elapsed Days IMRT CERTIFIED PROFESSIONAL MIDWIFE Pelvis 6X 180 4,500 04/26/2020 06/02/2020 37 3D PM Bst 18X 180 540 06/05/2020 06/07/2020 2 GENETIC TESTING: - Patient had genetic testing sent through [facility]. No reportable somatic or germline pathogenic or [...] SASHA MON MD on 04/28/2023 03:41 AM [id number] Evaluation + Plan noteExtracted from: Title:History and [...] in the past seeing a urologist in [place] to consider nephrectomy. She has had a consultation at previously, but she states that she would rather see somebody at [facility] because she did not necessarily feel [...] Please also put in a consult to CERTIFIED PROFESSIONAL MIDWIFE oncology nurse navigator. I explained the plan to the patient. I answered all of her questions. FLIP MARTIN MD FACOG Future Appointments Appointment Date:05/13/2023 02:00:00 PM Scheduled Provider: Location:INF Appointment Type:INF Labwork Appointment Date:05/15/2023 03:20:00 PM Scheduled Provider:FLIP MARTIN MD Location:[facility] ONC Appointment Type:SO OV Follow Up Appointment [...] IR Neph Cath-Neph Ureter W/Guide Left 06/24/23 [facility] 06-26-2023 Progress note Date of Service APRIL [...] FLIP MARTIN MD on 04/28/2023 07:51 AM [facility] [id number] History and physical note Date of Service 04/27/23 Chief Complaint Unable to uinate X 9 days. 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 History of Present Illness 32 yo Woman with history of Stage IIIB cervical cancer s/p chemoradiation currently in remission, presents to [place] emergency room for concern for UTI and [...] subsequently admitted for treatment of complicated UTI. 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 Amenorrheic since initiation of Chemoradiation. Denies mammogram ever. Colonoscopy in 2019. Denies history of STDs. Not sexually active. Family History Mother with breast cancer Sister with cervical cancer Grandmother with cervical cancer Aunts with cervical cancer Cousins with cervical cancer ONCOLOGY HISTORY: - 04/04/2020: CT scan abdomen and pelvis. [facility]. Thickened cervical wall with involvementof the lower [...] underwent for intracavitary brachii therapy applications with gsih-axsm-zcme iridium 192afterloading device utilizing a tandem and [...] Start Date End Date Elapsed Days IMRT CERTIFIED PROFESSIONAL MIDWIFE Pelvis 6X 180 4,500 04/26/2020 06/02/2020 37 3D PM Bst 18X 180 540 06/05/2020 06/07/2020 2 GENETIC TESTING: - Patient had genetic testing sent through [facility]. No reportable somatic or germline pathogenic or [...] Result Date: April 27, 2023 Verified By: PASSERINI MD, SHAHBAZ M CLINICAL STATEMENT: IMPRESSION: Left collecting system and [...] SASHA MON MD on 04/28/2023 03:41 AM [facility] [id number] Note ORIGINAL EXAMINATION: CT OF THE ABDOMEN [...] Shahbaz Denny MD Preliminary Report By: Dora Blueaugustine Electronically signed By Shahbaz Denny MD Dictated Date: 04/27/2023 10:30:54 PM Prelim Date: 04/27/2023 10:51:07 PM Sign Date: 04/27/2023 11:04:03 PM Ordering Provider: [facility]06-25-2023 Note ORIGINAL EXAMINATION: CT OF THE ABDOMEN [...] Sign Date: 04/27/2023 11:04:03 PM Ordering Provider: [facility]06-25-2023 History and physical note Date of Service 04/27/23 Chief Complaint Unable to uinate X 9 days. 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 History of Present Illness 32 yo Woman with history of Stage IIIB cervical cancer s/p chemoradiation currently in remission, presents to [place] emergency room for concern for UTI and [...] subsequently admitted for treatment of complicated UTI. 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 Amenorrheic since initiation of Chemoradiation. Denies mammogram ever. Colonoscopy in 2019. Denies history of STDs. Not sexually active. Family History Mother with breast cancer Sister with cervical cancer Grandmother with cervical cancer Aunts with cervical cancer Cousins with cervical cancer ONCOLOGY HISTORY: - 04/04/2020: CT scan abdomen and pelvis. [facility]. Thickened cervical wall with involvementof the lower [...] underwent for intracavitary brachii therapy applications with siqo-bvpm-khtz iridium 192afterloading device utilizing a tandem and [...] Start Date End Date Elapsed Days IMRT CERTIFIED PROFESSIONAL MIDWIFE Pelvis 6X 180 4,500 04/26/2020 06/02/2020 37 3D PM Bst 18X 180 540 06/05/2020 06/07/2020 2 GENETIC TESTING: - Patient had genetic testing sent through [employer]. No reportable somatic or germline pathogenic or [...] SASHA MON MD on 04/28/2023 03:41 AM [facility] [id number] Hospital Discharge instructions Patient Education 03/05/2023 17:42:39 [...] or mouth. Supplies needed: Soap. Alcohol-based hand soldering machine operator automatic. Standard cleaning products. Disinfectants, such as bleach. [...] water are not available, use alcohol-based hand soldering machine operator automatic. Avoid touching your face, mouth, nose, or [...] water. Air-dry your dishes or use a bath mix operator. Do not share dishes or eating utensils. [...] certain germs and not others. Read the accounts payable professional's instructions or read online resources to determine [...] minutes after each use, or according to accounts payable professional's instructions. Wash reusable cleaning cloths and sanitize [...] water are not available, use alcohol-based hand soldering machine operator automatic. In general: Stay home except to get [...] for Professionals in Infection Control and Epidemiology: professionals.site.apic.org/uaqfrzoy-ux-nwyy/jvu-kthydjgttu-pypfitd/home/ Summary It is important to know how [...] 07/29/2009 Document Revised: 02/15/2020 Document Reviewed: 01/14/2020 [employer] Patient Education 2019 [employer] Follow Up Care 02/23/2023 11:57:17 With:MARGOTH RUVALCABA BA, MD, Infectious Disease, Infectious Disease Group Address: [facility] [address] [place] [address]- When: Unknown Comments:Call for a follow up appointment within 1 week With:OLE SUTTON MD, [facility] Address: [address] [facility] [address] [place] [address] [place] [address] [phone] When: Unknown Comments:Call for a follow up appointment within 1 week With:[facility] Address: [address] [place] [address]- [phone] When:03/10/2023 09:00:00 Comments:Go to the ambulatory unit for your once weekly labwork and port dressing change on 03/10 at 9AM With:FLIP MARTIN MD Address: [address] [place] [address] [place] [address]- [phone] When:03/05/2023 15:30:00 Comments:Follow-up at scheduled appointment on March 05 at 3:30pm or call the office sooner if problems arise. [facility] 05-03-2023 Nurse Progress note Patient went home on IV antibiotics so she needed to stay accessed with her port for delivery of said IV antibiotics. Digitally Signed by Dania Hall RN on 03/05/2023 06:51 PM [facility] [id number] Note Date of Service 03/05/2023 Chief Complaint [...] sleep. 6. Tobacco use - Nicotine patches (/ PPD). 7. Anxiety - Continue Ativan TID [...] FARZANA CAST DO on 03/05/2023 06:40 AM [facility] [id number] Note Discharge Instructions Thank you for allowing [...] 03/19/2023 03:10 PM EDT FLIP MARTIN MD [facility] [address] [place] [phone] IR Neph Cath-Neph Ureter W/Guide Left 05/12/2023 11:00 AM EDT IR Follow Up Appointments Follow Up with [facility] When 03/10/2023 09:00 AM EDT Why: Go to the ambulatory unit for your once weekly labwork and port dressing change on 03/10 at 9AM Where: [address] [place] [address]- [phone] Follow Up with FLIP MARTIN MD When 03/05/2023 03:30 PM EDT Why: Follow-up at scheduled appointment on March 05 at 3:30pm or call the office sooner if problems arise. Where: [address] [place] [address] [place] [address]- [phone] Follow Up with MARGOTH RUVALCABA BA, MD, Infectious Disease, Infectious Disease Group When Why: Call for a follow up appointment within 1 week Where: [facility] [address] [place], [place] [id number]- Follow Up with OLE SUTTON MD, [facility] When Why: Call for a follow up appointment within 1 week Where: [address] [facility] [address] [place] [address]- [phone] The Following Activity and Diet Have Been [...] or mouth. Supplies needed: Soap. Alcohol-based hand soldering machine operator automatic. Standard cleaning products. Disinfectants, such as bleach. [...] water are not available, use alcohol-based hand soldering machine operator automatic. Avoid touching your face, mouth, nose, or [...] water. Air-dry your dishes or use a bath mix operator. Do not share dishes or eating utensils. [...] certain germs and not others. Read the accounts payable professional's instructions or read online resources to determine [...] minutes after each use, or according to accounts payable professional's instructions. Wash reusable cleaning cloths and sanitize [...] water are not available, use alcohol-based hand soldering machine operator automatic. In general: Stay home except to get [...] for Professionals in Infection Control and Epidemiology: professionals.site.apic.org/ngerphxe-uf-nzkf/bpw-mjvoyaziph-flsiqgf/home/ Summary It is important to know how [...] 07/29/2009 Document Revised: 02/15/2020 Document Reviewed: 01/14/2020 [employer] Patient Education 2019 [employer]. Additional Information VACCINATE! IT SAVES LIVES! Members of the community who have not yet received the COVID-19 vaccine and would like to receive it can visit one of [facility] vaccine clinics. There are many vaccine clinic locations within the [facility]. For locations and available times, please visit https://gettheshot.coronavirus.[place].gov/. It is important to note that some COVID mobile vaccine clinics are held outdoors and may be canceled in rainy or stormy conditions. To learn more about pediatric vaccinations (ages 5-11), we invite you to visit the [facility] webpage. https://www.[facility].org/pages/9918-Nclsw-Vpujxwnswxt-Toiqjbyxsi-Ozork-Xcd stions.htmlTo learn more about the COVID-19 vaccine, we invite you to visit the CDC website for a list of frequently asked questions. https://www.cdc.gov/coronavirus/2019-ncov/vaccines/faq.html [place] [facility] Patient [facility] Access Instructions: Stay connected with your healthcare team and access your personal medical information anytime with the [place] [facility] Patient Portal.If you would like a full copy of your medical records, please contact the [facility] Medical Records Department, Friday through Friday between 8a.m. and 4:30p.m. Please follow the directions below to access the portal: 1.Access the email account you provided upon registration to the hospital.2.Look for an invitation email from [facility].3.Open the email and access the invitation link: Accept Invitation to [employer]4.Fill in the required quintero to create your [...] you will allow to register on the [place] [employer] Patient Portal for access to your information. You can also access the [employer] Patient Portal on the [employer]. Simply click on Health Records under [employer] and then click on the [employer] logo. [...] Call your local pharmacy or go to http://[employer].Segmint/3G5Lr9n to find one close to you.3.Make use of household items: Use cat litter or old coffee grounds to dispose medications if other options arenot available. Mix your drugs with these household products, seal them in an airtight container andthrow it into the garbage. Call [facility]: [phone] to be sure your drugs can be [...] aware that I should contact my doctor. Patient/Wire Hanger Signature: Date/Time: Relationship to Patient: Witness Name/Signature: Date/Time: [facility] [id number] Note Date of Service 03/05/2023 Chief Complaint [...] FARZANA CAST DO on 03/05/2023 06:40 AM [facility] HospitalNmjroqth49-17-6519 Note Date of Service 03/05/2023 Chief Complaint [...] FARZANA CAST DO on 03/05/2023 06:40 AM [facility] [id number] Note Date of Service 03/04/2023 Chief Complaint [...] EDT Consult to Palliative Care SCD Machine ([id number]) SCD Sleeves - Knee ([id number]) Patient is a 32 yo woman with [...] FARZANA CAST DO on 03/04/2023 06:43 AM [facility] HospitalYkvaraqp28-37-1658 Palliative care Progress note Date of Service [...] Date: February 26, 2023 Verified By: ALEC PERDOZA MD CLINICAL STATEMENT: IMPRESSION: 2.4 cm peripherally [...] She is agreeable to rotating to immediate releasemorphine 15 mg every 4 hours as needed (which is similar to 10 mg oxycodone since it is equal to 12.5 oral morphine equivalents). Given her utilization, long-acting morphine will be increased to 60 mg every 12 hours. 6. Tobacco use team tobacco [...] of her medications be sent to the [place] pharmacy so that it is less complicated [...] SANTINO SAWYER MD on 03/04/2023 09:57 AM [facility] HospitalZzotljxl34-30-5369 Palliative care Progress note Date of Service [...] of her medications be sent to the [place] pharmacy so that it is less complicated [...] SANTINO SAWYER MD on 03/04/2023 09:57 AM [facility] HospitalGdyoanoi87-99-2793 Palliative care Progress note Date of Service [...] of her medications be sent to the [place] pharmacy so that it is less complicated [...] SANTINO SAWYER MD on 03/04/2023 09:57 AM [facility] [id number] Note Date of Service 03/04/2023 Chief Complaint [...] EDT Consult to Palliative Care SCD Machine ([id number]) SCD Sleeves - Knee ([id number]) Patient is a 32 yo woman with [...] reported uncontrolled pain Digitally Signed by FARZANA ACST DO on 03/04/2023 06:43 AM [facility] HospitalYhfocwlm00-76-6074 Note Date of Service 03/04/2023 Chief Complaint [...] EDT Consult to Palliative Care SCD Machine ([id number]) SCD Sleeves - Knee ([id number]) Patient is a 32 yo woman with a history of stage IIIB cervical cancer s/p chemoradiation in remission, has a history obstructive uropathy with left nephrostomy tube in place. Admitted for pelvic pain and complicated urinary tract infection. Admit to regular floor Condition: Stable Vitals: q8hr Activity: Up Ad Marisa Diet: Regular IVF: NS 75/hr, Ertapenem 1g qd DVT Prophylaxis: SCDyesenia, Susannah 40 qd (Refused 03/02) Consults: Palliative, Infectious Disease Dispo: Continue pain management. Continue Ertapenem. Will need outpatient IV antibiotic therapy. Outpatient IV antibiotic education prior to discharge. Reconsult palliative for patient reported uncontrolled pain Digitally Signed by FARZANA CAST DO on 03/04/2023 06:43 AM [facility] HospitalTbgxqhkv09-40-6195 Note Date of Service 03/03/2023 Chief Complaint [...] FARZANA CAST DO on 03/03/2023 06:56 AM [facility] HospitalCwankvqg25-77-7088 Note Date of Service 03/03/2023 Chief Complaint [...] FARZANA CAST DO on 03/03/2023 06:56 AM [facility] HospitalIewbmgpk75-68-5291 Infectious disease Progress note Date of Service [...] and back pain. She then presented to [place]. Patient was placed on meropenem. Patient urine [...] by CAMERON RICKS on 02/28/2023 10:42 AM [facility] HospitalMsyuyrwp77-85-6217 Urology Consult note Date of Service February [...] tube. The patient is not known to [place] urology. She reports that she gets her [...] and also the local urologist here in [place]. Depending on These discussions, this may warrant referral to [facility] vs local treatment. -- Tricia Diop MD Urology [facility] Problem List/Past Medical History Ongoing Acute [...] TRICIA DIOP MD on 02/28/2023 12:08 PM [facility] HospitalFesfgduf99-53-0800 Infectious disease Progress note Date of Service [...] and back pain. She then presented to [place]. Patient was placed on meropenem. Patient urine [...] by CAMERON RICKS on 02/28/2023 10:42 AM [facility] HospitalWguxlnoi39-64-6781 Infectious disease Progress note Date of Service [...] and back pain. She then presented to [place]. Patient was placed on meropenem. Patient urine [...] - Continue IV Ertapenem. Will discuss with CERTIFIED PROFESSIONAL MIDWIFE regarding possible IR aspiration. Left nephrostomy tube in place, last exchanged 02/17/23. Recommend urology consult. All other management per primary team Shared/split visit with my collaborating physician Dr. Margoth Martin This dictation was performed using voice recognition software and may include grammatical and/or spelling errors. Digitally Signed by CAMERON RICKS on 02/27/2023 02:49 PM Digitally Signed by CAMERON RICKS on 02/27/2023 02:57 PM [facility] HospitalTtsgbcgp57-25-1250 Infectious disease Progress note Date of Service [...] and back pain. She then presented to [place]. Patient was placed on meropenem. Patient urine [...] - Continue IV Ertapenem. Will discuss with CERTIFIED PROFESSIONAL MIDWIFE regarding possible IR aspiration. Left nephrostomy tube in place, last exchanged 02/17/23. Recommend urology consult. All other management per primary team Shared/split visit with my collaborating physician Dr. Margoth Martin This dictation was performed using voice recognition software and may include grammatical and/or spelling errors. Digitally Signed by CAMERON RICKS on 02/27/2023 02:49 PM Digitally Signed by CAMERON RICKS on 02/27/2023 02:57 PM [facility] HospitalFhfsmuil56-99-4695 Note ORIGINAL EXAMINATION: CT OF THE ABDOMEN [...] Sign Date: 02/27/2023 4:48:38 AM Ordering Provider: [facility]04-26-2023 Note ORIGINAL EXAMINATION: CT OF THE ABDOMEN [...] 02/27/2023 4:48:38 AM Ordering Provider: [facility]04-26-2023 Infectious disease Consult note Date of Service [...] and back pain. She then presented to [place]. Patient was placed on meropenem. Patient urine [...] by CAMERON RICKS on 02/26/2023 03:[address]26-2023 Palliative care Progress note Code Status Code [...] to make her own medical decisions, per [place] law medical decision making would fall to [...] by NUBIA POWERS on 02/26/2023 01:02 PM [facility] [id number] Infectious disease Consult note Date of Service [...] and back pain. She then presented to [place]. Patient was placed on meropenem. Patient urine [...] by CAMERON RICKS on 02/26/2023 03:51 PM [facility] HospitalEpjkamwd92-66-9475 Palliative care Progress note Date of Service [...] to make her own medical decisions, per [place] law medical decision making would fall to [...] that she sees a counselor [facility] [place]. Patient's counselor is Lenora. Review of labs, historical records, progress notes, and diagnostics Digitally Signed by NUBIA POWERS on 02/25/2023 03:33 PM [facility] HospitalTsnuvvyb40-45-7422 Note System generated consult secondary to documentation of established left nephrostomy tube. Insertionsite has a dry and intact gauze with transparent dressing. Nephrostomy drainable pouch intact, no issues. Digitally Signed by JAMAL Bach February on 02/25/2023 12:38 PM [facility] HospitalSsskflqz85-57-4382 Palliative care Consult note Date of Service [...] to make her own medical decisions, per [place] law medical decision making would fall to [...] by NUBIA POWERS on 02/24/2023 02:58 PM [facility] HospitalKzotzdzb65-49-4014 History and physical note Date of Service 02/23/2023 Chief Complaint Pt c/o abdominal and back pain for the past two weeks, rates pain 9/10. History of Present Illness 32 yo Woman with history of Stage IIIB cervical cancer s/p chemoradiation currently in remission, presents to [place] emergency room for concern for UTI and [...] Zofran. Blood culture and urine culture sent. 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 Amenorrheic since initiation of Chemoradiation. Denies mammogram ever. Colonoscopy in 2019. Denies history of STDs. Not sexually active. Family History Mother with breast cancer Sister with cervical cancer Grandmother with cervical cancer Aunts with cervical cancer Cousins with cervical cancer ONCOLOGY HISTORY: - 04/04/2020: CT scan abdomen and pelvis. [facility]. Thickened cervical wall with involvementof the lower [...] cGy in 3 fractions through [facility] PA quitnero with midline block taken her final pelvic tumor dose to 5040 centigray. She was treated with concurrent cisplatin based chemotherapy. The patient then underwent for intracavitary brachii therapy applications with frgi-lopp-wven iridium 192afterloading device utilizing a tandem and [...] Start Date End Date Elapsed Days IMRT CERTIFIED PROFESSIONAL MIDWIFE Pelvis 6X 180 4,500 04/26/2020 06/02/2020 37 3D PM Bst 18X 180 540 06/05/2020 06/07/2020 2 GENETIC TESTING: - Patient had genetic testing sent through [facility]. No reportable somatic or germline pathogenic or [...] JODI HILLIARD MD on 02/24/2023 07:51 AM [facility] HospitalYtfnvipv85-16-5729 Evaluation + Plan noteExtracted from: Title:CERTIFIED PROFESSIONAL MIDWIFE/ONC History and Physical Author:ENZO JONES DO Date:02/23/23 [...] Date:03/19/2023 03:10:00 PM Scheduled Provider:FLIP MARTIN MD Location:[facility]ESSION[facility]WIFE ONC Appointment Type:SO OV Follow Up Appointment [...] IR Neph Cath-Neph Ureter W/Guide Left 06/02/23 [facility] 04-17-2023 Hospital Discharge instructions Patient Education 02/17/2023 10:41:47 Radiology- Nephrostomy/Nephroureteral Tube Exchange 12/26/2022(CUSTOM) CARMEL Nephrostomy/Nephroureteral Tube Exchange Discharge Instructions Interventional Radiology [facility] [address] [place] [address] The procedure that you had done today [...] the feeling of the need to urinate. Vvcv-yxf-ngmivfy pain medication should be used for pain [...] the gauze. Supplies may be obtained at: [facility] [address] [facility] [address] [facility] Any questions or concerns, please contact your physician or Interventional Radiology at [phone] from 8-4:30pm Friday-Friday. If you do not [...] until you are awake and alert. Take jcnd-tdx-rqjsvjd and prescription medicines only as told by [...] 08/10/2014 Document Revised: 10/02/2018 Document Reviewed: 02/08/2017 [employer] Patient Education [employer]. Follow Up Care 12/16/2022 14:31:35 [facility] Address: [address] [place] [address] [place] [address]- [phone] When: Unknown With:Go to emergency room if symptoms worsen Address:Unknown When: Unknown [facility] 04-17-2023 Note* JAMAL Feliciano: SIGN, AUTHOR, PERFORM Event Display: IR Procedure Record Authored Date: IR Procedure Record Summary Primary Physician: VIRAL MANUEL MD Finalized Date/Time: 02/17/23 10:12:03 Pt. Name: LALY NAVAS/Sex: 1990 Female Med Rec #: [id number] Physician: Financial #: [id number] Pt. Type: O Room/Bed: / Admit/Disch: 02/17/23 08:45:00 - Institution: Allergies identified in patient's electronic medical record at time of printing on 02/17/23 Entry 1 Entry 2 Substance Oranges penicillin Reaction Type Allergy Allergy Last Modified By: JAMAL Scott RN Evan 04/03/21 12/02/22 08:25:47 17:13:24 Case Attendance- IR Entry 1 Entry 2 Entry 3 Case Attendee VIRAL MANUEL MD, Jacque M. Hershberger, Terra L [facility] Role Performed Primary Surgeon Scrub Technologist [...] mL/beat Medication OMNIPAQUE 300 50ML 10/PK Y-[address] [facility] [id number] Radiology Flouroscopy Fluoroscopy Used? Yes Fluoro Dose [...] than Primary Last Modified By: Patti Ching Picking Crew Supervisor 02/17/23 09:58:41 Immediate Post Procedure Note - [...] images and Patti Ching results are properly Picking Crew SupervisorBraden RN labeled and Ventura appropriately displayed, Alcohol [...] Radiology - Action Plan Outcomes Met? Yes Exhibit Designer JAMAL Feliciano Completing Procedure Plan Last Modified By: JAMAL Feliciano 02/17/23 09:46:55 Case Comments <None> Finalized By: JAMAL Feliciano Document Signatures Signed By: JAMAL Feliciano 02/17/23 10:12 [facility] 04-17-2023 Summary of episode note Discharge Instructions Thank you for allowing [facility] to assist you with your healthcare needs. The following is importantdischarge information regarding your hospital visit. Your Care Team FLIP MARTIN MD What to do next Scheduled Follow-Up Appointments Appointment Type When With Where Contact InformationSO OV 02/20/2023 02:50 PM FLIP ELLISON MD [facility] [address] [facility] [place] [address] Follow Up Appointments Follow Up with BRITTNI LU When Where: [address] [place] [address] [place] [address] [phone] Follow Up with Go to emergency room [...] medication providers or retail pharmacies. Education Materials CARMEL Nephrostomy/Nephroureteral Tube Exchange Discharge Instructions Interventional Radiology [facility] [address] [place] [address] The procedure that you had done today [...] the feeling of the need to urinate. Rvbx-dyw-lzpxjcl pain medication should be used for pain [...] may be obtained at: [facility] [address] [facility] [address] [facility] Any questions or concerns, please contact your physician or Interventional Radiology at [phone] from 8-4:30pm Friday-Friday. If you do not [...] until you are awake and alert. Take whfh-wid-jwozhfw and prescription medicines only as told by [...] Document Reviewed: 02/08/2017 Elsevier Patient Education 2020 [employer] Inc. Additional Information VACCINATE! IT SAVES LIVES! Members of the community who have not yet received the COVID-19 vaccine and would like to receive it can visit one of [facility] vaccine clinics. There are many vaccine clinic locations within the [facility]. For locations and available times, please visit [email or web address] It is important to note that some COVID mobile vaccine clinics are held outdoors and may be canceled in rainy or stormy conditions. To learn more about pediatric vaccinations (ages 5-11), we invite you to visit the [facility] webpage. https://www.[facility].org/pages/8871-Ctpce-Qdbhxtrbosb-Yeegijoktn-Nxpkj-Udp stions.htmlTo learn more about the COVID-19 vaccine, we invite you to visit the CDC website for a list of frequently asked questions. https://www.cdc.gov/coronavirus/2019-ncov/vaccines/faq.html [facility] Patient Portal Access Instructions: Stay connected with your healthcare team and access your personal medical information anytime with the [facility] Patient Portal.If you would like a full copy of your medical records, please contact the [facility] Medical Records Department, Friday through Friday between 8a.m. and 4:30p.m. Please follow the directions below to access the portal: 1.Access the email account you provided upon registration to the [facility].2.Look for an invitation email from [facility].3.Open the email and access the invitation link: Accept Invitation to [facility]4.Fill in the required quintero to create your account. Sign into www.[employer] with your username and password that you [...] you will allow to register on the [facility] Patient Portal for access to your information. You can also access the [facility] Patient Portal on the [employer]. Simply click on Health Records under [employer] and then click on the Ateo logo. HOW TO SAFELY DISPOSE OF PRESCRIPTION [...] Call your local pharmacy or go to http://bit.ly/7Q5Ta3j to find one close to you.3.Make use of household items: Use cat litter or old coffee grounds to dispose medications if other options arenot available. Mix your drugs with these household products, seal them in an airtight container andthrow it into the garbage. Call [facility]: [phone] to be sure your drugs can be [...] aware that I should contact my doctor. Patient/Wire Hanger Signature: Date/Time: Relationship to Patient: Witness Name/Signature: Date/Time: [facility]4371 Procedure note INTERVENTIONAL RADIOLOGY POST PROCEDURE NOTE DATE: 02/17/2023 10:20:22 NAME: LALY NAVAS Pre-Procedure Diagnosis: Left ureteral obstruction. Post Procedure Diagnosis: Same. Broke Beater Operator: Dr. Viral Manuel Procedure: Left nephroureteral catheter exchange. Anesthesia: Procedural sedation. Findings: Success. Estimated Blood Loss: Minimal (Less Than 10 mL). Specimen: None. Complications: None. Full report with procedural details to follow and will become available under the Radiology tab of Results Review. Please contact for any questions or concerns. Viral Manuel MD Interventional Radiology Pager: [phone] Digitally Signed by VIRAL MANUEL MD on 02/17/2023 10:22 AM [facility]Kr[facility]rcvi77-46-1546 Note IR Procedure Record Summary Primary Physician: VIRAL MANUEL MD Finalized Date/Time: 02/17/23 10:12:03 Pt. Name: LALY NAVAS /Sex: 1990 Female Med Rec #: [id number] Physician: Financial #: [id number] Pt. Type: O Room/Bed: / Admit/Disch: 02/17/23 [...] mL/beat Medication OMNIPAQUE 300 50ML 10/PK Y-[address] [facility] [id number] Radiology Flouroscopy Fluoroscopy Used? Yes Fluoro Dose [...] than Primary Last Modified By: Patti Ching Picking Crew Supervisor 02/17/23 09:58:41 Immediate Post Procedure Note - [...] images and Patti Ching results are properly Picking Crew SupervisorBraden RN labeled and Ventura appropriately displayed, Alcohol [...] Radiology - Action Plan Outcomes Met? Yes Exhibit Designer JAMAL Felciiano Completing Procedure Plan Last Modified By: JAMAL Feliciano 02/17/23 09:46:55 Case Comments Finalized By: JAMAL Feliciano Document Signatures Signed By: JAMAL Feliciano 02/17/23 10:12 [facility]un[facility]wl51[facility]-3428 Hospital Discharge instructions Patient Education 01/06/2023 15:48:10 Urinary Tract Infection, Adult, Yriw-sv-Fzho Urinary Tract Infection, Adult A urinary tract [...] Follow these instructions at home: Medicines Take ooak-qvf-cktulzb and prescription medicines only as told by [...] 04/07/2009 Document Revised: 10/07/2019 Document Reviewed: 04/29/2019 Albumatic Patient Education 2020 [employer] Follow Up Care 01/01/2023 16:30:26 With:FLIP MARTIN MD Address: [address] [place] [address] [place] [address]- When:01/30/2023 14:10:00 [facility] 03-06-2023 Note Discharge Instructions Thank you for allowing [facility] to assist you with your healthcare needs. [...] schedule a follow up appointment Where: [address] [place] [address] [place] [address]- The Following Activity and Diet Have Been [...] 12 hours Duration: 4 Days Pickup at [facility] New mirtazapine (mirtazapine 15 mg oral tablet) 1 tab(s) by mouth Once a day Refills: 3 Pickup at [facility] Pharmacy Information [facility]: [address] [place], [place] [phone] What How Much When Why Comments Stop [...] Follow these instructions at home: Medicines Take ogaw-lxg-vkgodrr and prescription medicines only as told by [...] 04/07/2009 Document Revised: 10/07/2019 Document Reviewed: 04/29/2019 [employer] Patient Education 2020 [employer] Inc. Additional Information VACCINATE! IT SAVES LIVES! Members of the community who have not yet received the COVID-19 vaccine and would like to receive it can visit one of [facility] vaccine clinics. There are many vaccine clinic locations within the [facility]. For locations and available times, please visit [email or web address] It is important to note that some COVID mobile vaccine clinics are held outdoors and may be canceled in rainy or stormy conditions. To learn more about pediatric vaccinations (ages 5-11), we invite you to visit the [facility] webpage. https://www.[facility].org/pages/4891-Invkp-Auiwgbfdnyu-Xoezyaacie-Bdtyc-Psb stions.htmlTo learn more about the COVID-19 vaccine, we invite you to visit the CDC website for a list of frequently asked questions. https://www.cdc.gov/coronavirus/2019-ncov/vaccines/faq.html [facility] Patient Portal Access Instructions: Stay connected with your healthcare team and access your personal medical information anytime with the [facility] Patient Portal.If you would like a full copy of your medical records, please contact the [facility] Medical Records Department, Friday through Friday between 8a.m. and 4:30p.m. Please follow the directions below to access the portal: 1.Access the email account you provided upon registration to the hospital.2.Look for an invitation email from [facility].3.Open the email and access the invitation link: Accept Invitation to [facility]4.Fill in the required quintero to create your account. Sign into www.[employer] with your username and password that you [...] you will allow to register on the [facility] Patient Portal for access to your information. You can also access the [facility] Patient Portal on the [employer]. Simply click on Health Records under [employer] and then click on the [employer] logo. [...] Call your local pharmacy or go to http://[email or web address] to find one close to you.3.Make use of household items: Use cat litter or old coffee grounds to dispose medications if other options arenot available. Mix your drugs with these household products, seal them in an airtight container andthrow it into the garbage. Call [facility]: [phone] to be sure your drugs can be [...] Patient Education Materials Urinary Tract Infection, Adult, Xtxe-zz-Egoo Medication Leaflets My discharge plan and instructions have been reviewed and explained to me and I,LALY NAVAS understand my current condition and have read and understand these discharge instructions. I have received a written copy of the plan/instructions. If I have questions, I am aware that I should contact my doctor. Patient/Wire Hanger Signature: Date/Time: Relationship to Patient: Witness Name/Signature: Date/Time: [facility]Xxqiugxu73-99-6260 Discharge summary Date of Service 01/06/2023 Discharge [...] to Physician - Ordered -- 01/03/23 11:20:00 SUMEET, CLOTILDE SHAY MD, Routine, I don't want to exit [...] schedule a follow up appointment Where: [address] [place] [address] [place] [address]- Follow Up Appointments 2 week follow up [...] PM Digitally Signed by FLIP MARTIN MD [facility] HospitalUvnkjqpa40-26-7952 Note Date of Service 01/06/2023 Chief Complaint [...] tab(s), Oral, q6h Lab Results 36hr Labs / 0547 Creatinine Lvl (s) 0.79 Albumin Level [...] AM Digitally Signed by FLIP MARTIN MD [facility] HospitalXkqwntiw81-58-2311 Note Date of Service 01/05/2023 Chief Complaint [...] function stable - IVF NS 20cc/hr - 3/1 Urogram: No evidence of right urinary tract [...] ENZO JONES DO on 01/05/2023 08:50 AM [facility] HospitalIuexuwvr32-74-8581 Note Date of Service 01/05/2023 Chief Complaint [...] ENZO JONES DO on 01/05/2023 08:50 AM [facility] HospitalRmddnkjh11-00-5275 Note Date of Service 01/05/2023 Chief Complaint [...] ENZO JONES DO on 01/05/2023 08:50 AM [facility] HospitalPboxibxu80-32-6639 Note Date of Service 01/05/2023 Chief Complaint [...] ENZO JONES DO on 01/05/2023 08:50 AM [facility] HospitalCyytyzev09-88-7652 Note Date of Service 01/04/23 Chief Complaint [...] entire meals. She states that the Dilaudid INSTRUCTOR MILITARY SCIENCE helpswith her pain. She is denying any [...] mL, IV Push, q4h Continuous: (2) HYDROmorphone INSTRUCTOR MILITARY SCIENCE in 50mL NS 10 mg 10 mg [...] to history of chemoradiation therapy - Dilaudid INSTRUCTOR MILITARY SCIENCE started overnight History of cervical cancer - Stage IIIB SCC of cervix - S/p Chemoradiation, currently in remission -Recent CT 08/02/22 unremarkable for signs of cancer recurrence -Recent Pap smear (07/15) negative for cervical dysplasia, however positive for HPV. For 6 months follow up per Dr. Martin's last note - Port-A-Cath in place Tobacco - For Nicotine patch if patient desires - Smokes /2 PPD Anxiety - Declined counseling - Continue Ativan home dose TID PRN Asthma - Not in acute exacerbation Obstructive uropathy s/p Left Nephrostomy tube - exchanged 01/02/23 Poor appetite - resolving with remeron Disposition: IV antibiotics. dilaudid INSTRUCTOR MILITARY SCIENCE for pain control Digitally Signed by NIECY THAPA DO on 01/04/2023 07:25 AM [facility] HospitalAgolevpn56-25-7461 Note Date of Service 01/04/23 Chief Complaint [...] entire meals. She states that the Dilaudid INSTRUCTOR MILITARY SCIENCE helpswith her pain. She is denying any [...] mL, IV Push, q4h Continuous: (2) HYDROmorphone INSTRUCTOR MILITARY SCIENCE in 50mL NS 10 mg 10 mg [...] to history of chemoradiation therapy - Dilaudid INSTRUCTOR MILITARY SCIENCE started overnight History of cervical cancer - [...] resolving with remeron Disposition: IV antibiotics. dilaudid INSTRUCTOR MILITARY SCIENCE for pain control Digitally Signed by NIECY THAPA DO on 01/04/2023 07:25 AM [facility] HospitalDyessvhu12-29-5421 Note Date of Service 01/04/23 Chief Complaint [...] entire meals. She states that the Dilaudid INSTRUCTOR MILITARY SCIENCE helpswith her pain. She is denying any [...] mL, IV Push, q4h Continuous: (2) HYDROmorphone INSTRUCTOR MILITARY SCIENCE in 50mL NS 10 mg 10 mg [...] to history of chemoradiation therapy - Dilaudid INSTRUCTOR MILITARY SCIENCE started overnight History of cervical cancer - [...] resolving with remeron Disposition: IV antibiotics. dilaudid INSTRUCTOR MILITARY SCIENCE for pain control Digitally Signed by NIECY THAPA DO on 01/04/2023 07:25 AM [facility] HospitalIfmgwqxs07-34-1454 Note Date of Service 01/03/2023 Chief Complaint [...] ALANNA SCANLON DO on 01/03/2023 07:57 AM [facility] HospitalJxuazayv94-08-8495 Consult note Chief complaint history of anxiety [...] CLOTILDE SHAY MD on 01/03/2023 11:53 AM [facility] HospitalPhxzmtla95-92-6257 Note Date of Service 01/03/2023 Chief Complaint [...] ALANNA SCANLON DO on 01/03/2023 07:57 AM [facility] HospitalQzjihzer97-88-3949 Note IR Procedure Record Summary Primary Physician: VIRAL MANUEL MD Finalized Date/Time: 01/03/23 09:23:36 Pt. Name: ANTONELLALALYO.B./Sex: 1990 Female Med Rec #: [id number] Physician: FLIP MARTIN MD Financial #: [id number] Pt. Type: I Room/Bed: 6660/A Admit/Disch: 01/01/23 16:28:38 - Institution: Allergies identified in patient's electronic medical record at time of printing on 01/03/23 Entry 1 Entry 2 Substance Oranges penicillin Reaction Type Allergy Allergy Last Modified By: JAMAL Scott RN Evan 02/03/21 10/04/22 08:25:47 17:13:24 Case Attendance- IR Entry 1 Entry 2 Entry 3 Case Attendee VIRAL MANUEL MDvinnie, [facility] JAMAL Beasley Role Performed Primary Surgeon Scrub [...] 09:19:37 Entry 4 Case Attendee Patti Ching Picking Crew Supervisor Role Performed Circulating Technologist Details Time In [...] cervical cancer Last Modified By: Patti Ching [employer] 01/02/23 15:28:59 Medication Administration- IR Entry 1 [...] than Primary Last Modified By: Patti Ching Picking Crew Supervisor 01/02/23 15:28:35 Immediate Post Procedure Note - IR Signed By: VIRAL MANUEL MD 01/02/23 15:46 Allergy Information- IR Entry 1 Allergies Reviewed? Yes Allergies Reviewed Patient With Last Modified By: Patti Ching Picking Crew Supervisor 01/02/23 15:25:06 Radiology Protocols/Time Out- IR Entry [...] are properly E, Patti Ching labeled and Picking Crew Supervisor appropriately displayed, Alcohol based prep dry Instrument [...] Method N/A Last Modified By: Patti Ching Picking Crew Supervisor 01/02/23 15:28:03 Patient Positioning- IR Entry 1 Procedure IR Neph Cath-Neph Body Position OP Prone Ureter W/Guide Left SN Feet Uncrossed? Yes Pressure Points Yes Checked Last Modified By: Patti Ching Picking Crew Supervisor 01/02/23 15:28:11 Radiology Procedure Plan - IR [...] Radiology - Action Plan Outcomes Met? Yes Exhibit Designer JAMAL Lindsey Completing Procedure Plan Last Modified By: Patti Ching Picking Crew Supervisor 01/02/23 15:28:48 Case Comments Had to remove Doc, RN, Techs and patient from room using procedure stop time. Then Edit rad procedure details Fluoro MGY and Total time which I got from IR Equipment/Techs notes so that the document would be complete then finalized it so charges could drop and report could flow to [facility]. [facility] RT- R(CV) Temple Meat C[employer] 01-03-2023 Finalized By: Ana Tipton Document Signatures Signed By: Ana Tipton 01/03/23 09:23 [facility] HospitalArcicnmg50-36-1396 Note Date of Service 01/03/2023 Chief Complaint [...] ALANNA SCANLON DO on 01/03/2023 07:57 AM [facility] HospitalKnvyhbpb31-45-8565 Note ORIGINAL PROCEDURE: Nephrostogram with left percutaneous [...] in the usual sterile fashion. A fluoroscopic director of litigation image was obtained demonstrating the expected position [...] Date: 01/03/2023 12:42:41 AM Ordering Provider: ALANNA SCANLON [facility] HospitalKysvnqwu16-92-6217 Note Date of Service 01/02/2023 Chief Complaint [...] ALANNA SCANLON DO on 01/02/2023 07:57 AM [facility] HospitalKsmzehot65-54-7397 Note ORIGINAL PROCEDURE: Nephrostogram with left percutaneous [...] in the usual sterile fashion. A fluoroscopic director of litigation image was obtained demonstrating the expected position [...] Date: 01/03/2023 12:42:41 AM Ordering Provider: ALANNA [facility]03-02-2023 Note System generated consult secondary to documented left nephrostomy tube. System intact with Band-Aidover insertion site. Patient states plan is for an exchange today. No needs at this time. Digitally Signed by JAMAL Bach February01/02/2023 11:29 AM [facility] HospitalYrekofio81-11-1293 Note Date of Service 01/02/2023 Chief Complaint [...] ALANNA SCANLON DO on 01/02/2023 07:57 AM [facility] HospitalOiqrlihz81-26-1787 History and physical note Date of Service [...] chest pain, dizziness, vaginal bleeding, vaginal discharge. 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 Amenorrheic since initiation of Chemoradiation. Denies mammogram ever. Colonoscopy in 2019. Denies history of STDs. Not sexually active. Family History Mother with breast cancer Sister with cervical cancer Grandmother with cervical cancer Aunts with cervical cancer Cousins with cervical cancer ONCOLOGY HISTORY: - 04/04/2020: CT scan abdomen and pelvis. [facility]. Thickened cervical wall with involvementof the lower [...] underwent for intracavitary brachii therapy applications with jrib-zqcc-qeql iridium 192 afterloading device utilizing a tandem and ring. 2400 cGy was delivered at 600 cGy per fraction topoint A from June 14, 2020 through July 11, 2020. The plan was to deliver 5 brachytherapy applications, however, the patient failed to show for surgery 3 times. Therefore, the decision to forego the last treatment was made as it had been nearly 3 months since initiating therapy. Course: C1 Pelvis Treatment Site Ref. ID Energy Dose/Fx (cGy) #Fx Total Dose (cGy) Start Date End Date Elapsed Days IMRT CERTIFIED PROFESSIONAL MIDWIFE Pelvis 6X 180 4,500 04/26/2020 06/02/2020 37 3D PM Bst 18X 180 540 06/05/2020 06/07/2020 2 GENETIC TESTING: - Patient had genetic testing sent through [facility]. No reportable somatic or germline pathogenic or [...] G/dL (01/01/23 13:18:00) A/G Ratio: 1.2 ratio (01/01/23:18:00) Bili Total: 0.2 mg/dL (01/01/23 13:18:00) Bili [...] 48 ng/mL (01/01/23 13:18:00) Folate: 9.92 ng/mL (01/01/23:18:00) Vit. D 25-Hydroxy: 18.6 ng/mL (01/01/23 13:18:00) [...] ALANNA SCANLON DO on 01/01/2023 06:18 PM [facility] HospitalCjtckoeu41-62-0780 Note Date of Service 01/02/2023 Chief Complaint [...] ALANNA SCANLON DO on 01/02/2023 07:57 AM [facility] HospitalDyltphnj35-58-8126 Note ORIGINAL EXAMINATION: CT UROGRAM 01/01/2023 6:17 [...] AM Ordering Provider: ALANNA [facility]03-01-2023 Note ORIGINAL EXAMINATION: CT UROGRAM 01/01/2023 6:17 [...] Date: 01/02/2023 12:04:48 AM Ordering Provider: ALANNA [facility]03-01-2023 History and physical note Date of Service [...] chest pain, dizziness, vaginal bleeding, vaginal discharge. 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 Amenorrheic since initiation of Chemoradiation. Denies mammogram ever. Colonoscopy in 2019. Denies history of STDs. Not sexually active. Family History Mother with breast cancer Sister with cervical cancer Grandmother with cervical cancer Aunts with cervical cancer Cousins with cervical cancer ONCOLOGY HISTORY: - 04/04/2020: CT scan abdomen and pelvis. [facility]. Thickened cervical wall with involvementof the lower [...] underwent for intracavitary brachii therapy applications with fady-woxp-vecl iridium 192afterloading device utilizing a tandem and [...] Start Date End Date Elapsed Days IMRT CERTIFIED PROFESSIONAL MIDWIFE Pelvis 6X 180 4,500 04/26/2020 06/02/2020 37 3D PM Bst 18X 180 540 06/05/2020 06/07/2020 2 GENETIC TESTING: - [facility]. No reportable somatic or germline [...] Low (01/01/23 13:18:00) Iron: 35 mcg/dL Low (01/01/23:18:00) TIBC: 288 mcg/dL (01/01/23:18:00) Iron Sat: 12 % (01/01/23 13:18:00) GFR Non-: >60 (01/01/23:18:00) GFR : >60 [...] Code Status DNR DNI Digitally Signed by ALNANA SCANLON DO on 01/01/2023 06:18 PM [facility] HospitalHkoettxn67-47-7611 Summary of episode note LALY NAVAS :1990 Visit Date:01/01/2023 Your Visit Summary Your Diagnosis Malignant neoplasm of cervix uteri, unspecified, Cervical cancer Tests Performed .Auto Differential .Estimated Glomerular Filtration Rate .Neutro Absolute B12 Basic Metabolic Panel Complete Blood Count Ferritin Folate Level Hepatic Function Panel ([facility]) Iron Studies Magnesium Level Phosphorus Level [...] Folate - 9.92 ng/mL Hepatic Function Panel ([facility]) (01/01/2023) Total Protein - 6.9 G/dL Albumin [...] to receive it can visit one of [facility] vaccine clinics. There are many vaccine clinic locations within the [facility]. For locations and available times, please visit [email or web address]/. It is important to note that some COVID mobile vaccine clinics are held outdoors and may be canceled in rainy or stormy conditions. To learn more about pediatric vaccinations (ages 5-11), we invite you to visit the [facility] webpage. https://www.[email or web address].org/pages/3891-Jhkoc-Yyovuridtam-Vdkrqkhvjd-Bmdoo-Lij stions.htmlTo learn more about the COVID-19 vaccine, we invite you to visit the CDC website for a list of frequently asked questions. https://www.cdc.gov/coronavirus/2019-ncov/vaccines/faq.html [facility] Patient Portal Access Instructions: Stay connected with your healthcare team and access your personal medical information anytime with the [facility] Patient Portal.If you would like a full copy of your medical records, please contact the [facility] Medical Records Department, Friday through Friday between 8a.m. and 4:30p.m. Please follow the directions below to access the portal: 1.Access the email account you provided upon registration to the [facility].2.Look for an invitation email from [facility].3.Open the email and access the invitation link: Accept Invitation to [facility]4.Fill in the required quintero to create your account. Sign into www.Spreadtrum Communications with your username and password that you [...] you will allow to register on the [facility] Patient Portal for access to your information. You can also access the [facility] Patient Portal on the [employer]. Simply click on Health Records under [employer] and then click on the Ateo logo. HOW TO SAFELY DISPOSE OF PRESCRIPTION [...] Call your local pharmacy or go to http://bit.Segmint/4M6At2q to find one close to you.3.Make use of household items: Use cat litter or old coffee grounds to dispose medications if other options arenot available. Mix your drugs with these household products, seal them in an airtight container andthrow it into the garbage. Call [facility]: [phone] to be sure your drugs can be [...] aware that I should contact my doctor. Patient/Wire Hanger Signature: Date/Time: Relationship to Patient: Witness Name/Signature: Date/Time: [id number] Evaluation + Plan noteExtracted from: Title:History and [...] Date:01/30/2023 02:10:00 PM Scheduled Provider:FLIP MARTIN MD Location:[facility] Appointment Type:SO OV Follow Up Appointment [...] IR Neph Cath-Neph Ureter W/Guide Left 02/17/23 [facility] 01-13-2023 Note ORIGINAL PROCEDURE: INTRODUCTION-NEPHRO TUBE MODERATE CONSCIOUS SEDATION 11/15/2022 HISTORY: ORDERING SYSTEM PROVIDED HISTORY: Reason for Exam: CERVICAL CA, LAST CHANGE 10/02/22 TECHNIQUE: Fluoroscopy CONTRAST: 8 cc Omnipaque 300 SEDATION: Moderate sedation was ordered and supervised by the attending with physician vrob-fv-ofpe monitoring. Medications were provided and recorded by Radiology nurses. FLUOROSCOPY DOSE AND TYPE OR TIME AND EXPOSURES: Fluoroscopy: Time: 23.8 minutes. Air kerma: 92.0 mGy Number of images: 15 DESCRIPTION OF PROCEDURE: Informed consent was obtained after a detailed explanation of the procedure including risks, benefits, and alternatives. Felt protocol was observed. Sterile gowns, masks, hats [...] to the urinary bladder. 9 and 10 Guamanian vascular sheath were guided over the catheter [...] was then readily removed. A new 8 Guamanian 24 cm nephroureteral stent was guided into [...] balloon. 3. Placement of a new 8 Guamanian 24 cm nephroureteral stent in the left renal collecting system Interpreted by: Janet Florez Preliminary Report By: Janet Florez Electronically signed By Janet Florez Dictated Date: 11/15/2022 4:52:51 PM Prelim Date: 11/15/2022 5:22:54 PM Sign Date: 11/15/2022 5:22:54 PM Ordering Provider: BRITTNI LU [id number] Hospital Discharge instructions Patient Education 11/15/2022 13:39:47 Radiology- Nephrostomy Tube Insertion (CUSTOM) CARMEL Nephrostomy Tube Exchange Discharge Instructions Interventional Radiology [facility] [address] [address] The procedure that you had done today [...] mayexperience the feeling of needing to urinate. Bqlu-dzw-hurmjkj pain medication should be used for pain [...] instruction below: 8:00 am- 5:00 pm call [phone] After 5:00 pm call [phone] After 24 hours, contact the physician who [...] until you are awake and alert. Take couf-zmr-gbajlzr and prescription medicines only as told by [...] 08/10/2014 Document Revised: 10/02/2018 Document Reviewed: 02/08/2017 Albumatic Patient Education 2020 [employer] Follow Up Care 11/12/2022 14:00:32 With:BRITTNI LU WAGE AND SALARY ADMINISTRATOR-TECHNICAL PROGRAM MANAGER Address: [address] [facility] [place] [phone] When: Unknown Comments:Follow-up as scheduled With:Call Physician Referral Address:Unknown When: Unknown [facility] 01-13-2023 Evaluation + Plan noteExtracted from: Title:IR [...] Ready to change: Yes. Physical Exam Vitals: Gvrltczfdbr96.8 (09:52) Systolic Blood PressureNo result Diastolic Blood PressureNo result Pulse69 (09:52) JyW199 (09:52) Respiratory Rate14 (09:52) General: Alert, cooperative. [...] Date:11/20/2022 09:00:00 AM Scheduled Provider:FLIP MARTIN MD Location:[facility] Appointment Type:SO OV Appointment Date:01/01/2023 11:30:00 AM Scheduled Provider:FLIP MARTIN MD Location:[facility] Appointment Type: OV Follow Up Diagnostic Tests Pending * [...] IR Neph Cath-Neph Ureter W/Guide Left 06/02/23 [facility] 01-13-2023 Summary of episode note Discharge Instructions Thank you for allowing [facility] to assist you with your healthcare needs. The following is importantdischarge information regarding your hospital visit. Your Care Team FLIP MARTIN MD What to do next Scheduled Follow-Up Appointments Appointment Type When With Where Contact InformationSO OV 11/20/2022 09:00 AM [facility] [address] [place] [phone] SO OV Follow Up 01/01/2023 11:30 AM FLIP CORRALES MD [facility] [address] [place] [phone] Follow Up Appointments Follow Up with BRITTNI LU When Why: Follow-up as scheduled Where: [address] [place] [address] [place] [address] [phone] Follow Up with Call Physician Referral When [...] medication providers or retail pharmacies. Education Materials CARMEL Nephrostomy Tube Exchange Discharge Instructions Interventional Radiology [facility] [address] [place] [address] The procedure that you had done today [...] mayexperience the feeling of needing to urinate. Swas-pyy-pidgmgm pain medication should be used for pain [...] instruction below: 8:00 am- 5:00 pm call [phone] After 5:00 pm call [phone] After 24 hours, contact the physician who [...] until you are awake and alert. Take oylg-pfr-zbjuhdo and prescription medicines only as told by [...] Document Reviewed: 02/08/2017 Elsevier Patient Education 2020 [employer] Inc. Additional Information VACCINATE! IT SAVES LIVES! Members of the community who have not yet received the COVID-19 vaccine and would like to receive it can visit one of [facility] vaccine clinics. There are many vaccine clinic locations within the [facility]. For locations and available times, please visit https://[email or web address].[place].gov/. It is important to note that some COVID mobile vaccine clinics are held outdoors and may be canceled in rainy or stormy conditions. To learn more about pediatric vaccinations (ages 5-11), we invite you to visit the [employer] [facility] webpage. https://www.[employer].org/pages/4825-Ryvxp-Kkgazwkuqij-Bgitbuxzlt-Ssjsf-Rst stions.htmlTo learn more about the COVID-19 vaccine, we invite you to visit the [employer] website for a list of frequently asked questions. https://Spreadtrum Communications/assets/Youxevse-hrm-Klzuofrg/mgnnw-Kekbkcc-Egupqvivfx _Asked-Questions.pdf [facility] Patient Portal Access Instructions: Stay connected with your healthcare team and access your personal medical information anytime with the [facility] Patient Portal.If you would like a full copy of your medical records, please contact the [facility] Medical Records Department, Friday through Friday between 8a.m. and 4:30p.m. Please follow the directions below to access the portal: 1.Access the email account you provided upon registration to the hospital.2.Look for an invitation email from [facility].3.Open the email and access the invitation link: Accept Invitation to [facility]4.Fill in the required quintero to create your account. Sign into www.[email or web address] Communications with your username and password that you [...] you will allow to register on the [facility] Patient Portal for access to your information. You can also access the [employer] Patient Portal on the G-[employer] joya. Simply click on Health Records under [employer] and then click on the Ateo logo. HOW TO SAFELY DISPOSE OF PRESCRIPTION [...] Call your local pharmacy or go to http://[employer].Segmint/1M8Cc4f to find one close to you.3.Make use of household items: Use cat litter or old coffee grounds to dispose medications if other options arenot available. Mix your drugs with these household products, seal them in an airtight container andthrow it into the garbage. Call [facility]: [phone] to be sure your drugs can be [...] been reviewed and explained to me and I,ANTONELLALALY understand my current condition and have read and understand these discharge instructions. I have received a written copy of the plan/instructions. If I have questions, I am aware that I should contact my doctor. Patient/Wire Hanger Signature: Date/Time: Relationship to Patient: Witness Name/Signature: Date/Time: [facility] [id number] Note ORIGINAL PROCEDURE: INTRODUCTION-NEPHRO TUBE MODERATE CONSCIOUS SEDATION 11/15/2022 HISTORY: ORDERING SYSTEM PROVIDED HISTORY: Reason for Exam: CERVICAL CA, LAST CHANGE 10/02/22 TECHNIQUE: Fluoroscopy CONTRAST: 8 cc Omnipaque 300 SEDATION: Moderate sedation was ordered and supervised by the attending with physician myiy-rx-ohsl monitoring. Medications were provided and recorded by Radiology nurses. FLUOROSCOPY DOSE AND TYPE OR TIME AND EXPOSURES: Fluoroscopy: Time: 23.8 minutes. Air kerma: 92.0 mGy Number of images: 15 DESCRIPTION OF PROCEDURE: Informed consent was obtained after a detailed explanation of the procedure including risks, benefits, and alternatives. Felt protocol was observed. Sterile gowns, masks, hats [...] to the urinary bladder. 9 and 10 Guamanian vascular sheath were guided over the catheter [...] was then readily removed. A new 8 Guamanian 24 cm nephroureteral stent was guided into [...] balloon. 3. Placement of a new 8 Guamanian 24 cm nephroureteral stent in the left renal collecting system Interpreted by: Janet Florez Preliminary Report By: Janet Florez Electronically signed By Janet Florez Dictated Date: 11/15/2022 4:52:51 PM Prelim Date: 11/15/2022 5:22:54 PM Sign Date: 11/15/2022 5:22:54 PM Ordering Provider: [facility]01-13-2023 Note IR Procedure Record Summary Primary Physician: Finalized Date/Time: 11/15/22 12:56:45 Pt. Name: LALY NAVAS/Sex: 1990 Female Med Rec #: [id number] Physician: Financial #: [id number] Pt. Type: O Room/Bed: / Admit/Disch: 11/15/22 09:39:00 - Institution: Allergies identified in patient's electronic medical record at time of printing on 11/15/22 Entry 1 Entry 2 Substance Oranges penicillin Reaction Type Allergy Allergy Last Modified By: JAMAL Scott RN Evan 02/03/21 10/04/22 08:25:47 17:13:24 Case Attendance- IR Entry 1 Entry 2 Entry 3 Case Attendee JANET FLOREZ MD, RN Padmini Bocanegra Picking Crew Supervisor Role Performed Radiologist Procedure Procedure Nurse Scrub [...] SN Primary Procedure Yes Primary Surgeon GAUTAMJANET Hitchcock MD Anesthesia/Sedation Local, IV Sedation Type Additional [...] 4 X 5, Gauze Technologist Notes 8.5F Perham sponge 4 X 4 Nephroureterostomy stent LT [...] Patton, RN Deborah E Verbal Order Read GAUTAMJANET MD GAUTAM, JANET Metz MD GAUTAM, JANET [...] Reviewed Medical Record With Last Modified By: Sandi Picking Crew Supervisor Devika A 11/15/22 11:28:34 Radiology Protocols/Time Out- [...] Padmini Fairchild Rad results are properly Tech, Juleslon, Picking Crew Supervisor labeled and Devika A appropriately displayed, Confirm/obtain preop antibiotic order., Double verification of sterility indicators complete Instrument Sterility Team Members JANET FLOREZ MD, Verifying Sterility JAMAL Lindsey, Padmini Fairchild Picking Crew Supervisor, Bollon, Picking Crew Supervisor Devika A Procedure IR Neph Cath-Neph Ureter W/Guide Left SN Last Modified By: Sandi Picking Crew Supervisor Devika A 11/15/22 11:31:48 Skin Prep- IR Entry 1 Procedure IR Neph Cath-Neph Ureter W/Guide Left SN Skin Prep Prep Area Back Side Left By Fierstos, Padmini R Rad Prep Agents Betadine Solution Tech Hair Removal Method N/A Last Modified By: aSm Juniorhy Alice 11/15/22 11:32:20 Patient Positioning- IR Entry 1 Procedure IR Neph Cath-Neph Body Position OP Prone Ureter W/Guide Left SN Feet Uncrossed? Yes Pressure Points Yes Checked Last Modified By: Sam Junior 11/15/22 11:32:34 Radiology Procedure Plan - IR [...] Radiology - Action Plan Outcomes Met? Yes Exhibit Designer JAMAL Lindsey, Completing Sam Junior Procedure Plan Last Modified By: Sam Junior 11/15/22 11:37:18 Transfer Post Procedure- IR Entry 1 RAD - Transport to Recovery Patient Transported IV Via Portable With Post-op Destination Receiving Transported By JAMAL Lindsey Post Procedure Time Out Double Verification Yes Date/Time Verified 11/15/22 11:05:00 of ID band on patient Completed Verfied ID Band on Sam Juniorhy A by Last Modified By: Karolina Prater 11/15/22 12:56:41 Case Comments Finalized By: Karolina Prater Document Signatures Signed By: Karolina Prater 11/15/22 12:56 [id number] Discharge summary Date of Service 11/15/2022 Discharge [...] JANET FLOREZ MD on 11/15/2022 12:51 PM [id number] Interventional radiology Consult note INTERVENTIONAL RADIOLOGY POST PROCEDURE NOTE DATE: 11/15/2022 12:39:24 NAME: LALY NAVAS Pre-Procedure Diagnosis: _Bladder cancer Post Procedure Diagnosis: Same. Broke Beater Operator: Dr. Caio Florez Procedure: _Nu stent exchange [...] Boyce MD Interventional Radiology IR dept: x 12770 Available on [employer] Digitally Signed by JANET FLOREZ MD on 11/15/2022 12:40 PM [facility] [id number] Note Interventional Radiology Focused Preprocedure History/Physical Reason [...] Ready to change: Yes. Physical Exam Vitals: Junwoowqxid16.8 (09:52) Systolic Blood PressureNo result Diastolic Blood PressureNo result Pulse69 (09:52) UiO483 (09:52) Respiratory Rate14 (09:52) General: Alert, cooperative. [...] JANET FLOREZ MD on 11/15/2022 01:56 PM [id number] Hospital Discharge instructions Patient Education 10/08/2022 16:44:11 Pyelonephritis, Adult, Mcor-am-Oefs Pyelonephritis, Adult Pyelonephritis is an infection that [...] even if youstart to feel better. Take xapf-kdv-lmkibxj and prescription medicines only as told by [...] 11/27/2005 Document Revised: 08/24/2019 Document Reviewed: 08/24/2019 Albumatic Patient Education 2020 [employer] Follow Up Care 09/30/2022 10:05:59 With:[facility] Address: When: Unknown Comments:[facility] to provide iv pole, tubing, and medication for iv antibiotics With:FLIP MARTIN Address: [address] [place] [address] [place] [address] [facility] (1) When: Unknown Comments:Please call the office to schedule a follow up appointment within 2 weeks With:[facility] Address:Unknown When:10/11/2022 09:00:00 Comments:Outpatient port care dressing change and labs [facility] 12-06-2022 Note Discharge Instructions Thank you for allowing [facility] to assist you with your healthcare needs. The following is importantdischarge information regarding your hospital visit. Your Care Team FLIP MARTIN MD Your Diagnosis Pyelonephritis Cervical cancer Obstructive uropathy Asthma Decreased appetite Tobacco use Anxiety Flank pain What to do next Scheduled Follow-Up Appointments Appointment Type When With Where Contact InformationSO OV Follow Up 01/01/2023 11:30 AM FLIP CORRALES MD [facility] [address] [place] [address] [place] [phone] Follow Up Appointments Follow Up with [facility] When 10/11/2022 09:00 AM EST Why: Outpatient port care dressing change and labs Follow Up with [facility] When Why: [facility] to provide iv pole, tubing, and medication for iv antibiotics Where: Follow Up with FLIP MARTIN When Why: Please call the office to schedule a follow up appointment within 2 weeks Where: [address] [place] [address] [place] [address]- Business (1) The Following Activity and Diet [...] needed for constipation Refills: 2 Pickup at [facility] New dronabinol (Marinol 2.5 mg oral capsule) 1 cap by mouth Two (2) times a day Cervical cancer Decreased appetite Duration: 21 Days Pickup at [facility] New gabapentin (gabapentin 300 mg oral capsule) 1 cap by mouth Daily at bedtime Cervical cancer Duration: 30 Days Refills: 3 Pickup at [facility] New meropenem (meropenem 1000 mg intravenous injection) 1,000 Milligram IV Piggyback Every 8 hours New morphine (MS Contin 30 mg/ 8-12 hrs oral tablet, extended release) 1 tab(s) by mouth Every 12 hours Cervical cancer Duration: 21 Days Pickup at [facility] New oxyCODONE (oxyCODONE 10 mg oral tablet ( IMMEDIATE release )) 1 tab(s) by mouth Every 4 hours as needed for abdominal discomfort Cervical cancer Duration: 21 Days Pickup at [facility] Unchanged acetaminophen (Tylenol 325 mg [...] prior to taking pain medication Pickup at [facility] Unchanged sodium chloride (Normal Saline Flush 0.9% injectable solution) 10 Milliliter IR Drain Every day Pickup at [facility] Pharmacy Information [facility]: [address] [place] [address] [phone] [facility]: [address] [place] [phone] What How Much When Why Comments Stop [...] even if youstart to feel better. Take ekvq-rfo-tullkge and prescription medicines only as told by [...] 11/27/2005 Document Revised: 08/24/2019 Document Reviewed: 08/24/2019 Albumatic Patient Education 2020 [employer]. Additional Information VACCINATE! IT SAVES LIVES! Members of the community who have not yet received the COVID-19 vaccine and would like to receive it can visit one of [facility] vaccine clinics. There are many vaccine clinic locations within the [facility]. For locations and available times, please visit https://gettheshot.coronavirus.[place].gov/. It is important to note that some COVID mobile vaccine clinics are held outdoors and may be canceled in rainy or stormy conditions. To learn more about pediatric vaccinations (ages 5-11), we invite you to visit the [facility] webpage. https://www.[facility].org/pages/9349-Hycps-Vntsskzxmvr-Alyupujzaf-Jvvnc-Klz stions.htmlTo learn more about the COVID-19 vaccine, we invite you to visit the [employer] website for a list of frequently asked questions. https://Safer[employer]i.Scytl/assets/Jbmypcqm-sot-Kwwozbjp/ptfkx-Npcnhea-Ehoblcvqhz _Asked-Questions.pdf [facility] Patient Portal Access Instructions: Stay connected with your healthcare team and access your personal medical information anytime with the [facility] Patient Portal.If you would like a full copy of your medical records, please contact the [facility] Medical Records Department, Friday through Friday between 8a.m. and 4:30p.m. Please follow the directions below to access the portal: 1.Access the email account you provided upon registration to the [facility].2.Look for an invitation email from [facility].3.Open the email and access the invitation link: Accept Invitation to [facility]4.Fill in the required quintero to create your account. Sign into [email or web address] with your username and password that you [...] you will allow to register on the [facility] Patient Portal for access to your information. You can also access the [facility] Patient Portal on the [employer]. Simply click on Health Records under [employer] and then click on the [employer] logo. HOW TO SAFELY DISPOSE OF PRESCRIPTION [...] Call your local pharmacy or go to http://[employer].Segmint/3W0Wl7v to find one close to you.3.Make use of household items: Use cat litter or old coffee grounds to dispose medications if other options arenot available. Mix your drugs with these household products, seal them in an airtight container andthrow it into the garbage. Call [facility]: [phone] to be sure your drugs can be [...] a CHART COPY. Signatures Patient Education Materials Pyclemonephritis, Adult, Bxwx-kp-Vguf Medication Leaflets My discharge plan and instructions have been reviewed and explained to me and I,LALY NAVAS understand my current condition and have read and understand these discharge instructions. I have received a written copy of the plan/instructions. If I have questions, I am aware that I should contact my doctor. Patient/Wire Hanger Signature: Date/Time: Relationship to Patient: Witness Name/Signature: Date/Time: [facility] HospitalJcovutib60-04-0036 Note Date of Service 10/08/22 Chief Complaint [...] Result Date: October 05, 2022 Verified By: SCOOYB JOSE MD CLINICAL STATEMENT: IMPRESSION: Mild circumferential [...] 1. Successful placement of a new 8 Guamanian 26 cm left nephroureteral stent. 2. Left [...] DILLAN KUMAR MD on 10/08/2022 05:52 AM [facility] [id number] Note Date of Service 10/08/22 Chief Complaint [...] 1. Successful placement of a new 8 Guamanian 26 cm left nephroureteral stent. 2. Left [...] DILLAN KUMAR MD on 10/08/2022 05:52 AM [facility] [id number] Note Date of Service 10/08/22 Chief Complaint [...] 1. Successful placement of a new 8 Guamanian 26 cm left nephroureteral stent. 2. Left [...] DILLAN KUMAR MD on 10/08/2022 05:52 AM [facility] [id number] Nurse Progress note Tried explaining to patient [...] by JAMAL Ferrer on 10/08/2022 12:32 AM [facility] [id number] Note Date of Service 10/07/22 Chief Complaint [...] 1. Successful placement of a new 8 Guamanian 26 cm left nephroureteral stent. 2. Left [...] -Renal function Left:right, 27:73%. -Current Pain management: INSTRUCTOR MILITARY SCIENCE, 15 mg MS Contin BID, Gabapentin 300 [...] DILLAN KUMAR MD on 10/07/2022 06:01 AM [facility] [id number] Note Date of Service 10/07/22 Chief Complaint [...] 1. Successful placement of a new 8 Guamanian 26 cm left nephroureteral stent. 2. Left [...] -Renal function Left:right, 27:73%. -Current Pain management: INSTRUCTOR MILITARY SCIENCE, 15 mg MS Contin BID, Gabapentin 300 [...] DILLAN KUMAR MD on 10/07/2022 06:01 AM [facility] [id number] Note Date of Service 10/06/22 Chief Complaint [...] mL, IR Drain, q8h Continuous: (1) HYDROmorphone INSTRUCTOR [employer]IT[employer] SCIENCE in 50mL NS 10 mg 10 mg [...] 1. Successful placement of a new 8 Guamanian 26 cm left nephroureteral stent. 2. Left [...] -Renal function Left:right, 27:73%. -Current Pain management: INSTRUCTOR MILITARY SCIENCE, 15 mg MS Contin BID, Gabapentin 300 [...] DILLAN KUMAR MD on 10/06/2022 08:18 AM [facility] [id number] Note Date of Service 10/06/22 Chief Complaint [...] mL, IR Drain, q8h Continuous: (1) HYDROmorphone INSTRUCTOR MILIT[employer] SCIENCE in 50mL NS 10 mg 10 mg [...] 1. Successful placement of a new 8 Guamanian 26 cm left nephroureteral stent. 2. Left [...] -Renal function Left:right, 27:73%. -Current Pain management: [employer], 15 mg MS Contin BID, Gabapentin 300 [...] DILLAN KUMAR MD on 10/06/2022 08:18 AM [id number] Note Date of Service 10/06/22 Chief Complaint [...] mL, IR Drain, q8h Continuous: (1) HYDROmorphone [employer] in 50mL NS 10 mg 10 mg [...] 1. Successful placement of a new 8 Guamanian 26 cm left nephroureteral stent. 2. Left [...] -Renal function Left:right, 27:73%. -Current Pain management: [employer], 15 mg MS Contin BID, Gabapentin 300 [...] DILLAN KUMAR MD on 10/06/2022 08:18 AM [id number] Note ORIGINAL EXAMINATION: CT UROGRAM 10/05/2022 2:05 [...] pathologically enlarged left para-aortic lymph nodes seen. Wire Hanger lymph node is seen on series 2, [...] Sign Date: 10/05/2022 9:17:10 PM Ordering Provider: [facility]12-03-2022 Note ORIGINAL EXAMINATION: CT UROGRAM 10/05/2022 [...] pathologically enlarged left para-aortic lymph nodes seen. Wire Hanger lymph node is seen on series 2, [...] Sign Date: 10/05/2022 9:17:10 PM Ordering Provider: [facility]12-03-2022 Note Date of Service 10/05/22 [...] Daily sodium chloride 0.9% 10 ml syringe jerir flush 10 mL, IR Drain, q8h Continuous: (1) HYDROmorphone [employer] in 50mL NS 10 mg 10 mg [...] 1. Successful placement of a new 8 Guamanian 26 cm left nephroureteral stent. 2. Left [...] with Dr. Martin. -Renal function Left:right, 27:73%. -[employer] continued for now, consider d/c to oral [...] DILLAN KUMAR MD on 10/05/2022 08:33 AM [id number] Note Date of Service 10/05/22 Chief Complaint [...] mL, IR Drain, q8h Continuous: (1) HYDROmorphone [employer] in 50mL NS 10 mg 10 mg [...] 1. Successful placement of a new 8 Guamanian 26 cm left nephroureteral stent. 2. Left [...] with Dr. Martin. -Renal function Left:right, 27:73%. -[employer] continued for now, consider d/c to oral [...] DILLAN KUMAR MD on 10/05/2022 08:33 AM [facility] [id number] Note Date of Service 10/04/22 Chief Complaint [...] 720.00 Output Urine Voided 250.00 Urostomy Output: 2024. Total Summary Total Intake 720.00 Total Output [...] mL, IR Drain, q8h Continuous: (1) HYDROmorphone [employer] in 50mL NS 10 mg 10 mg [...] 1. Successful placement of a new 8 Guamanian 26 cm left nephroureteral stent. 2. Left [...] from her pyelonephritis. We will stop the [employer] and transition to oral medications. Will discuss [...] DILLAN KUMAR MD on 10/04/2022 06:55 AM [facility] [id number] Infectious disease Progress note Date of Service 10/04/2022 Objective Vitals and Measurements T: 36.7 C (Oral) TMIN: 36.7 C (Oral) TMAX: 36.9 C (Oral) HR: 88 RR: 18 BP: 108/73 SpO2: 98% Physical Exam Chart reviewed, patient examined. Patient is alert and oriented x3, tearful and a bit anxious but FSC, resting in bed on Dilaudid [employer] pump. Dilaudid PCR syringe is empty, RN [...] Patient reports she is very unhappy with CERTIFIED PROFESSIONAL MIDWIFE resident who assessed her this morning. Requesting to speak with Dr Martin. injection mold technician notified. SGOT 12, SGPT <7 FOCUSED ASSESSMENT: [...] mL, IR Drain, q8h Continuous: (1) HYDROmorphone [employer] in 50mL NS 10 mg 10 mg [...] Emili Clark RN on 10/04/2022 09:27 AM [facility] [id number] Infectious disease Progress note Date of Service 10/04/2022 Objective Vitals and Measurements T: 36.7 C (Oral) TMIN: 36.7 C (Oral) TMAX: 36.9 C (Oral) HR: 88 RR: 18 BP: 108/73 SpO2: 98% Physical Exam Chart reviewed, patient examined. Patient is alert and oriented x3, tearful and a bit anxious but FSC, resting in bed on Dilaudid [employer] pump. Dilaudid PCR syringe is empty, RN [...] Patient reports she is very unhappy with CERTIFIED PROFESSIONAL MIDWIFE resident who assessed her this morning. Requesting to speak with Dr Martin. injection mold technician notified. SGOT 12, SGPT <7 FOCUSED ASSESSMENT: [...] mL, IR Drain, q8h Continuous: (1) HYDROmorphone [employer] in 50mL NS 10 mg 10 mg [...] Emili Clark RN on 10/04/2022 09:27 AM [facility] [id number] Note Date of Service 10/04/22 Chief Complaint [...] 720.00 Output Urine Voided 250.00 Urostomy Output: 2024. Total Summary Total Intake 720.00 Total Output [...] mL, IR Drain, q8h Continuous: (1) HYDROmorphone [employer] in 50mL NS 10 mg 10 mg [...] 1. Successful placement of a new 8 Guamanian 26 cm left nephroureteral stent. 2. Left [...] from her pyelonephritis. We will stop the [employer] and transition to oral medications. Will discuss [...] DILLAN KUMAR MD on 10/04/2022 06:55 AM [facility] [id number] Note Date of Service 10/03/2022 Chief Complaint Abdominal pain Difficulty urinating Subjective Patient reports her acute pain has improved with the Dilaudid [employer] however her chronic pain at the nephrostomy [...] mL, IR Drain, q8h Continuous: (1) HYDROmorphone [employer] in 50mL NS 10 mg 10 mg [...] 1. Successful placement of a new 8 Guamanian 26 cm left nephroureteral stent. 2. Left [...] for NM Kidney scan. Will discuss discontinuing [employer] Dilaudid with Dr. Hilliard today. Digitally Signed by PRIMO CANELA MD on 10/03/2022 06:57 AM [facility] [id number] Note ORIGINAL EXAMINATION: NUCLEAR MEDICINE RENAL SCAN10/03/2022 [...] Sign Date: 10/03/2022 2:27:51 PM Ordering Provider: [facility]12-01-2022 Note ORIGINAL EXAMINATION: NUCLEAR MEDICINE RENAL SCAN10/03/2022 [...] Sign Date: 10/03/2022 2:27:51 PM Ordering Provider: [facility]12-01-2022 Infectious disease Progress note Date of Service 10/03/2022 Objective Vitals and Measurements T: 36.7 C (Oral) TMIN: 36.7 C (Oral) TMAX: 36.8 C (Oral) HR: 96 RR: 16 BP: 106/73 SpO2: 97% Physical Exam Chart reviewed, patient examined. Patient is alert and oriented x3, resting in bed on Dilaudid [employer] pump. No c/o VD. Reports improving nausea. [...] mL, IR Drain, q8h Continuous: (1) HYDROmorphone [employer] in 50mL NS 10 mg 10 mg [...] (s): 0.64 Imaging Results and Diagnostics 10/03 [place] Kidney Scan Pending completion and results Problem List History of cervical cancer status post chemoradiation Left nephrostomy tube in place, last exchanged 08/14/2022 Acute pyelonephritis Complicated UTI Chest port in place Digitally Signed by Emili Clark RN on 10/03/2022 08:58 AM [facility] [id number] Consult note Chief complaint anxiety History of present illness 31-year-old female admitted with a history of cervical cancer status post chemoradiation as well as a history of obstructive uropathy states longstanding anxiety. I evaluated this patient in the presence of rn social work Tasha Wallace. Patient states that she does [...] CLOTILDE SHAY MD on 10/03/2022 10:14 AM [facility] [id number] Note IR Procedure Record Summary Primary Physician: JANET FLOREZ MD Finalized Date/Time: 10/03/22 09:10:23 Pt. Name: LALY NAVAS /Sex: 1990 Female Med Rec #: [id number] Physician: FLIP MARTIN MD Financial #: [id number] Pt. Type: I Room/Bed: 6672/A Admit/Disch: 09/30/22 10:04:48 - Institution: Allergies identified in patient's electronic medical record at time of printing on 10/03/22 Entry 1 Substance penicillin Reaction Type Allergy Last Modified By: JAMAL Samuel 02/03/21 17:13:24 Case Attendance- IR Entry 1 Entry 2 Entry 3 Case Attendee JANET FLOREZ MD [facility], Marisa Kearney RN Picking Crew Supervisor Role Performed Primary Surgeon Scrub Technologist Procedure Nurse Details Time In 10/02/22 14:24:00 10/02/22 14:24:00 10/02/22 14:24:00 Time Out 10/02/22 14:50:00 10/02/22 14:55:00 10/02/22 14:55:00 Procedure/Preference IR Neph Cath-Neph IR Neph Cath-Neph IR Neph Cath-Neph Card Ureter W/Guide Left SN Ureter W/Guide Left SN Ureter W/Guide Left SN Last Modified By: Padmini Fairchild Megan R Rad Fierstos, Megan R Picking Crew Supervisor 10/02/22 14:53:31 Tech 10/02/22 14:53:31 Tech 10/02/22 14:53:31 Entry 4 Case Attendee Padmini Fairchild Picking Crew Supervisor Role Performed Circulating Technologist Details Time In 10/02/22 14:24:00 Time Out 10/02/22 14:55:00 Procedure/Preference IR Neph Cath-Neph Card Ureter W/Guide Left SN Last Modified By: Padmini Fairchild Picking Crew Supervisor 10/02/22 14:53:31 Radiology Procedures- IR Entry 1 Procedure/Preference IR Neph Cath-Neph Actual Procedure IR Neph-ureter w guide Card Ureter W/Guide Left SN left SN Primary Procedure Yes Primary Surgeon JANET FLOREZ MD Anesthesia/Sedation Local, IV Sedation Type Additional Procedure Times Start 10/02/22 14:30:00 Stop 10/02/22 14:50:00 Specialty Service SN Radiology Procedure EBL 1 mL Last Modified By: Padmini Fairchild Picking Crew Supervisor 10/02/22 15:00:02 Radiology Procedure Details - IR [...] cervical cancer Last Modified By: Padmini Fairchild Aplica 10/02/22 14:31:54 Medication Administration- IR Entry 1 [...] RN Hill, Hannah RN Verbal Order Read GAUTAMJANET MD GAUTAM, JANET Metz MD GAUTAM, JANET Metz MD Back from: Last Modified By: Marisa [...] than Primary Last Modified By: Padmini Fairchild R Picking Crew Supervisor 10/02/22 14:31:36 Immediate Post Procedure Note - IR Signed By: JANET FLOREZ MD 10/02/22 14:51 Allergy Information- IR Entry 1 Allergies Reviewed? Yes Allergies Reviewed Medical Record With Last Modified By: Padmini Fairchild Picking Crew Supervisor 10/02/22 14:25:11 Radiology Protocols/Time Out- IR Entry [...] Time Out Patti Ching Relevant images and Picking Crew Supervisor, Marisa Gastelum results are properly RN, Padmini Fairchild labeled and Picking Crew Supervisor appropriately displayed, Alcohol based prep dry Instrument Sterility Team Members Patti Ching Verifying Sterility Picking Crew Supervisor Procedure IR Neph Cath-Neph Ureter W/Guide Left SN Last Modified By: Padmini Fairchild Picking Crew Supervisor 10/02/22 14:30:43 Skin Prep- IR Entry 1 Procedure IR Neph Cath-Neph Ureter W/Guide Left SN Skin Prep Prep Area Flank Side Left By Patti Ching Prep Agents Betadine Scrub Picking Crew Supervisor Hair Removal Method N/A Last Modified By: Padmini Fairchild Picking Crew Supervisor 10/02/22 14:29:37 Patient Positioning- IR Entry 1 Procedure IR Neph Cath-Neph Body Position OP Prone Ureter W/Guide Left SN Feet Uncrossed? Yes Pressure Points n/a Checked Last Modified By: Padmini Fairchild Picking Crew Supervisor 10/02/22 14:29:49 Radiology Procedure Plan - IR [...] Radiology - Action Plan Outcomes Met? Yes Exhibit Designer Marisa Gastelum RN Completing Procedure Plan Last Modified By: Padmini Fairchild Picking Crew Supervisor 10/02/22 14:31:10 Case Comments Finalized By: Ana Tipton Document Signatures Signed By: Padmini Fairchild 10/02/22 15:02 Ana Tipton 10/03/22 09:10 [facility] [id number] Infectious disease Progress note Date of Service 10/03/2022 Objective Vitals and Measurements T: 36.7 C (Oral) TMIN: 36.7 C (Oral) TMAX: 36.8 C (Oral) HR: 96 RR: 16 BP: 106/73 SpO2: 97% Physical Exam Chart reviewed, patient examined. Patient is alert and oriented x3, resting in bed on Dilaudid [employer] pump. No c/o VD. Reports improving nausea. [...] mL, IR Drain, q8h Continuous: (1) HYDROmorphone [employer] in 50mL NS 10 mg 10 mg [...] (s): 0.64 Imaging Results and Diagnostics 10/03 [place] Kidney Scan Pending completion and results Problem List History of cervical cancer status post chemoradiation Left nephrostomy tube in place, last exchanged 08/14/2022 Acute pyelonephritis Complicated UTI Chest port in place Digitally Signed by Emili Clark RN on 10/03/2022 08:58 AM [facility] [id number] Note Date of Service 10/03/2022 Chief Complaint Abdominal pain Difficulty urinating Subjective Patient reports her acute pain has improved with the Dilaudid [employer] however her chronic pain at the nephrostomy [...] mL, IR Drain, q8h Continuous: (1) HYDROmorphone [employer] in 50mL NS 10 mg 10 mg [...] 1. Successful placement of a new 8 Guamanian 26 cm left nephroureteral stent. 2. Left [...] for NM Kidney scan. Will discuss discontinuing [employer] Dilaudid with Dr. Hilliard today. Digitally Signed by PRIMO CANELA MD on 10/03/2022 06:57 AM [facility] [id number] Note ORIGINAL PROCEDURE: INTRODUCTION-NEPHRO TUBE MODERATE CONSCIOUS [...] the nurse. The patient has an active [employer] pump present. Very generous lidocaine was utilized FLUOROSCOPY DOSE AND TYPE OR TIME AND EXPOSURES: Fluoroscopy time 0.8min Total DLP: 5 mGy Number of images: 2 DESCRIPTION OF PROCEDURE: Informed consent was obtained after a detailed explanation of the procedure including risks, benefits, and alternatives. Felt protocol was observed. Sterile gowns, masks, hats [...] catheter was readily removed. A new 8 Guamanian 26 cm nephroureteral stent was placed. Its [...] 1. Successful placement of a new 8 Guamanian 26 cm left nephroureteral stent. 2. Left nephrostogram and antegrade pyelography Interpreted by: Janet Florez Preliminary Report By: Janet Florez Electronically signed By Janet Florez Dictated Date: 10/02/2022 7:44:31 PM Prelim Date: 10/02/2022 7:49:25 PM Sign Date: 10/02/2022 7:49:25 PM Ordering Provider: AYANNA PETERSON [facility] [id number] Note Date of Service 10/02/2022 Chief Complaint Abdominal pain Difficulty urinating Subjective Patient seen and examined. She is upset this morning, she was not given her diet order in time and eventually was too upset to eat after it was brought to her. Her pain has improved significantly with the [employer] Dilaudid. She denies nausea, vomiting, fever, chills, [...] mL, IR Drain, Daily Continuous: (1) HYDROmorphone [employer] in 50mL NS 10 mg 10 mg [...] Activity: Ambulate >> Diet: Regular, NPO at [place] (CLD with medications) >> IVF: NS 90 [...] pending, for [place] Kidney scan, NPO at [place] for nephrostomy tube exchange, resume diet after. Will discuss discontinuing [employer] Dilaudid after nephrostomy exchange. Digitally Signed by PRIMO CANELA MD on 10/02/2022 06:39 AM [facility] [id number] Note ORIGINAL PROCEDURE: INTRODUCTION-NEPHRO TUBE MODERATE CONSCIOUS [...] the nurse. The patient has an active [employer] pump present. Very generous lidocaine was utilized FLUOROSCOPY DOSE AND TYPE OR TIME AND EXPOSURES: Fluoroscopy time 0.8min Total DLP: 5 mGy Number of images: 2 DESCRIPTION OF PROCEDURE: Informed consent was obtained after a detailed explanation of the procedure including risks, benefits, and alternatives. Felt protocol was observed. Sterile gowns, masks, hats [...] catheter was readily removed. A new 8 Guamanian 26 cm nephroureteral stent was placed. Its [...] 1. Successful placement of a new 8 Guamanian 26 cm left nephroureteral stent. 2. Left nephrostogram and antegrade pyelography Interpreted by: Janet Florez Preliminary Report By: Janet Florez Electronically signed By Janet Florez Dictated Date: 10/02/2022 7:44:31 PM Prelim Date: 10/02/2022 7:49:25 PM Sign Date: 10/02/2022 7:49:25 PM Ordering Provider: [facility]11-30-2022 Note Date of Service 10/02/2022 Chief Complaint Abdominal pain Difficulty urinating Subjective Patient seen and examined. She is upset this morning, she was not given her diet order in time and eventually was too upset to eat after it was brought to her. Her pain has improved significantly with the [employer] Dilaudid. She denies nausea, vomiting, fever, chills, [...] mL, IR Drain, Daily Continuous: (1) HYDROmorphone [employer] in 50mL NS 10 mg 10 mg [...] pending, for [place] Kidney scan, NPO at [place] for nephrostomy tube exchange, resume diet after. Will discuss discontinuing [employer] Dilaudid after nephrostomy exchange. Digitally Signed by PRIMO CANELA MD on 10/02/2022 06:39 AM [facility] [id number] Infectious disease Progress note Date of Service 10/02/2022 Objective Vitals and Measurements T: 36.4 C (Oral) TMIN: 36.4 C (Oral) TMAX: 36.9 C (Oral) HR: 75 RR: 18 BP: 115/86 SpO2: 100% Physical Exam Chart reviewed, patient examined. Patient is alert and oriented x3, rather flat in affect, resting in bed on Dilaudid [employer] pump. No c/o VD. Reports ongoing nausea, requesting Ativan and Zofran. Reports generalized fatigue, did not sleep well overnight. Reports continued bilateral flank as well as abdominal pain, although does report improvement with [employer]. No other new complaints this AM, bedside [...] mL, IR Drain, Daily Continuous: (1) HYDROmorphone [employer] in 50mL NS 10 mg 10 mg [...] Emili Clark RN on 10/02/2022 08:54 AM [facility] [id number] Infectious disease Progress note Date of Service 10/02/2022 Objective Vitals and Measurements T: 36.4 C (Oral) TMIN: 36.4 C (Oral) TMAX: 36.9 C (Oral) HR: 75 RR: 18 BP: 115/86 SpO2: 100% Physical Exam Chart reviewed, patient examined. Patient is alert and oriented x3, rather flat in affect, resting in bed on Dilaudid [employer] pump. No c/o VD. Reports ongoing nausea, requesting Ativan and Zofran. Reports generalized fatigue, did not sleep well overnight. Reports continued bilateral flank as well as abdominal pain, although does report improvement with [employer]. No other new complaints this AM, bedside [...] mL, IR Drain, Daily Continuous: (1) HYDROmorphone [employer] in 50mL NS 10 mg 10 mg [...] Emili Clark RN on 10/02/2022 08:54 AM [facility] [id number] Note Date of Service 10/02/2022 Chief Complaint Abdominal pain Difficulty urinating Subjective Patient seen and examined. She is upset this morning, she was not given her diet order in time and eventually was too upset to eat after it was brought to her. Her pain has improved significantly with the [employer] Dilaudid. She denies nausea, vomiting, fever, chills, [...] mL, IR Drain, Daily Continuous: (1) HYDROmorphone [employer] in 50mL NS 10 mg 10 mg [...] pending, for [place] Kidney scan, NPO at [place] for nephrostomy tube exchange, resume diet after. Will discuss discontinuing [employer] Dilaudid after nephrostomy exchange. Digitally Signed by PRIMO CANELA MD on 10/02/2022 06:39 AM [facility] [id number] Infectious disease Consult note Date of Service [...] 50.4 kg (09/30/22) Dosing Weight: 50.4 kg (11/28/22) Left nephrostomy tube in place draining patent [...] faecalis Nuclear medicine renal scan is pending CERTIFIED PROFESSIONAL MIDWIFE/onc board and following Discussed with patient, she [...] 100 mg= 1 cap(s), Oral, BID Dilaudid [employer] (0.2mg/1 mL) 10 mg, 10 mg= 50 [...] RUVALCABA BA, MD on 10/01/2022 11:23 AM [facility] [id number] Infectious disease Consult note Date of Service [...] faecalis Nuclear medicine renal scan is pending CERTIFIED PROFESSIONAL MIDWIFE/onc board and following Discussed with patient, she [...] 100 mg= 1 cap(s), Oral, BID Dilaudid [employer] (0.2mg/1 mL) 10 mg, 10 mg= 50 [...] RUVALCABA BA, MD on 10/01/2022 11:23 AM [facility] [id number] Note System generated consult for an establish left nephrostomy tube. Tube is secured with a StayFIX securement device. Patient is scheduled tomorrow for tube exchange. Digitally Signed by Rhea Pruett RN, Skin Team on 10/01/2022 10:01 AM [facility] [id number] Note Date of Service 10/01/2022 Chief Complaint [...] PRIMO CANELA MD on 10/01/2022 06:59 AM [facility] [id number] History and physical note Date of Service [...] chest pain, dizziness, vaginal bleeding, vaginal discharge. 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 Amenorrheic since initiation of Chemoradiation. Denies mammogram ever. Colonoscopy in 2019. Denies history of STDs. Not sexually active. Family History Mother with breast cancer Sister with cervical cancer Grandmother with cervical cancer Aunts with cervical cancer Cousins with cervical cancer ONCOLOGY HISTORY: - 04/04/2020: CT scan abdomen and pelvis. [facility]. Thickened cervical wall with involvementof the lower [...] underwent for intracavitary brachii therapy applications with oejs-hofy-jnsr iridium 192afterloading device utilizing a tandem and [...] Start Date End Date Elapsed Days IMRT CERTIFIED PROFESSIONAL MIDWIFE Pelvis 6X 180 4,500 04/26/2020 06/02/2020 37 3D PM Bst 18X 180 540 06/05/2020 06/07/2020 2 GENETIC TESTING: - Patient had genetic testing sent through [facility]. No reportable somatic or germline pathogenic or [...] PRIMO CANELA MD on 09/30/2022 08:19 PM [facility] [id number] Note Date of Service 10/01/2022 Chief Complaint [...] PRIMO CANELA MD on 10/01/2022 06:59 AM [facility] [id number] History and physical note Date of Service [...] chest pain, dizziness, vaginal bleeding, vaginal discharge. 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 Amenorrheic since initiation of Chemoradiation. Denies mammogram ever. Colonoscopy in 2019. Denies history of STDs. Not sexually active. Family History Mother with breast cancer Sister with cervical cancer Grandmother with cervical cancer Aunts with cervical cancer Cousins with cervical cancer ONCOLOGY HISTORY: - 04/04/2020: CT scan abdomen and pelvis. [facility]. Thickened cervical wall with involvementof the lower [...] underwent for intracavitary brachii therapy applications with [id number]-znzt-enhz iridium 192afterloading device utilizing a tandem and [...] Start Date End Date Elapsed Days IMRT CERTIFIED PROFESSIONAL MIDWIFE Pelvis 6X 180 4,500 04/26/2020 06/02/2020 37 3D PM Bst 18X 180 540 06/05/2020 06/07/2020 2 GENETIC TESTING: - Patient had genetic testing sent through [facility]. No reportable somatic or germline pathogenic or [...] PRIMO CANELA MD on 09/30/2022 08:19 PM [facility] [id number] Evaluation + Plan noteExtracted from: Title:Gynecology Oncology [...] Date:01/01/2023 11:30:00 AM Scheduled Provider:FLIP MARTIN MD Location:CERTIFIED PROFESSIONAL MIDWIFE ONC Appointment Type:SO OV Follow Up Future [...] IR Neph Cath-Neph Ureter W/Guide Left 06/02/23 [facility] 10-14-2022 Hospital Discharge instructions Patient Education 08/16/2022 13:25:49 Radiology- Nephrostomy Tube Insertion(CUSTOM) CARMEL Nephrostomy Tube Insertion Discharge Instructions Interventional Radiology [facility] [address] [place] [address] The procedure that you had done today [...] mayexperience the feeling of needing to urinate. Zxeg-eoz-gjbpayl pain medication should be used for pain [...] instruction below: 8:00 am- 5:00 pm call [phone] After 5:00 pm call [phone] After 24 hours, contact the physician who ordered this procedure for you. Special Instructions: Follow Up Care 08/08/2022 16:44:45 With:FLIP MARTIN MD Address: [address] [place] [address] [place] [address]- [phone] When: Unknown Comments:call office for a follow up appointment even tho you have 1 for next year With:DOMINIQUE MARY MD Address: [address] [place] [address] [place] [address]- When:1-2 days Comments:Accepting new patients With:PRIYANK RWOLAND MD Address: [address] [place] [address]- When:1-2 days Comments:Accepting new patients With:RYAN POTTS WAGE AND SALARY ADMINISTRATOR-[facility] Address: [phone] [address] [address]- When:1-2 days Comments:Accepting new patients [facility] 10-14-2022 Note Discharge Instructions Thank you for allowing [facility] to assist you with your healthcare needs. [...] 01/01/2023 11:30 AM EST FLIP MARTIN MD [facility] [address] [place] [phone] Follow Up Appointments Follow Up with FLIP MARTIN MD When Why: call office for a follow up appointment even tho you have 1 for next year Where: [address] [place] [address] [place] [phone] Follow Up with DOMINIQUE MARY MD When Within 1-2 days Why: Accepting new patients Where: [address] [facility] [facility] [place] [address]- Follow Up with PRIYANK ROWLAND MD When Within 1-2 days Why: Accepting new patients Where: [address] [place] [address]- Follow Up with RYAN POTTS APRN-TECHNICAL PROGRAM MANAGER When Within 1-2 days Why: Accepting new patients Where: [address] [place] [address]- The Following Activity and Diet Have Been [...] Muscle spasm Duration: 10 Days Pickup at [facility] 172 New HYDROmorphone (Dilaudid 2 mg oral tablet) 1 tab(s) by mouth Every 4 hours as needed for as needed for pain Cancer related pain History of radiation therapy Duration: 5 Days Pickup at [facility] 172 New lidocaine topical (lidocaine 5% topical patch) 1 patch(es) Topical Once a day remove patches after 12 hours Pickup at [facility] 1724 New naproxen (naproxen 250 mg oral tablet) 1 tab(s) by mouth Two (2) times a day Pickup at [facility] 172 New nitrofurantoin (Macrobid 100 mg oral capsule) 1 cap by mouth Two (2) times a day Duration: 3 Days Take with food Pickup at [facility] 1724 New promethazine (promethazine 12.5 mg rectal suppository) 1 suppository(ies) in the rectum Every 6 hours as needed for for nausea/vomiting Pickup at [facility] 172 Changed acetaminophen (Tylenol 325 mg oral capsule) 650 Milligram by mouth Every 4 hours as needed for Pain, scale 1-3 Changed acetaminophen (Tylenol 325 mg oral tablet) 2 tab(s) by mouth Every 4 hours as needed for for pain Duration: 7 Days Pickup at [facility] 172 Unchanged LORazepam (Ativan 1 mg [...] Milliliter IR Drain Every day Pharmacy Information [facility] 1724: [address] [place], [place] [id number] [phone] What How Much When Why Comments Stop [...] medication providers or retail pharmacies. Education Materials CARMEL Nephrostomy Tube Insertion Discharge Instructions Interventional Radiology [facility] [address] [place] [address] The procedure that you had done today [...] mayexperience the feeling of needing to urinate. Uocm-usv-xkhetmh pain medication should be used for pain [...] instruction below: 8:00 am- 5:00 pm call [phone] After 5:00 pm call [phone] After 24 hours, contact the physician who ordered this procedure for you. Special Instructions: Additional Information VACCINATE! IT SAVES LIVES! Members of the community who have not yet received the COVID-19 vaccine and would like to receive it can visit one of [facility] vaccine clinics. There are many vaccine clinic locations within the [facility]. For locations and available times, please visit [email or web address] It is important to note that some COVID mobile vaccine clinics are held outdoors and may be canceled in rainy or stormy conditions. To learn more about pediatric vaccinations (ages 5-11), we invite you to visit the [facility] webpage. https://www.[facility].org/pages/6491-Mhofa-Knuiyokrqwh-Abzpbfidkf-Svcza-Lyd stions.htmlTo learn more about the COVID-19 vaccine, we invite you to visit the [employer] website for a list of frequently asked questions. [email or web address]://[email or web address]/assets/Inwttcfu-[email or web address]-Vipyptba/ribvk-Sflgpyy-Bffpstcgub _Asked-Questions.pdf [facility] Patient Portal Access Instructions: Stay connected with your healthcare team and access your personal medical information anytime with the [facility] Patient Portal.If you would like a full copy of your medical records, please contact the [facility] Medical Records Department, Friday through Friday between 8a.m. and 4:30p.m. Please follow the directions below to access the portal: 1.Access the email account you provided upon registration to the hospital.2.Look for an invitation email from [facility].3.Open the email and access the invitation link: Accept Invitation to [facility]4.Fill in the required quintero to create your account. Sign into [email or web address] with your username and password that you [...] you will allow to register on the [facility] [employer] Patient Portal for access to your information. You can also access the [facility] Patient Portal on the [employer]. Simply click on Health Records under [employer] and then click on the [facility] logo. [...] Call your local pharmacy or go to http://bit.[email or web address]/5G4Ak4p to find one close to you.3.Make use of household items: Use cat litter or old coffee grounds to dispose medications if other options arenot available. Mix your drugs with these household products, seal them in an airtight container andthrow it into the garbage. Call [facility]: [phone] to be sure your drugs can be [...] aware that I should contact my doctor. Patient/Wire Hanger Signature: Date/Time: Relationship to Patient: Witness Name/Signature: Date/Time: [facility]kpw[facility]fn77-35-7319 Palliative care Progress note Date of Service [...] on an every 4 hour basis, the CERTIFIED PROFESSIONAL MIDWIFE team may want to consider starting her on a long-acting pain medicine if they felt as though that was appropriate. I did explain to Dr. Fitzgerald since this is a chronic pain, we would not manage in the outpatient setting. Patient's OARRS re port was reviewed. Digitally Signed by LESIA DENIS on 08/16/2022 01:17 PM [facility]Pnfoqpag23-13-8892 Note Date of Service 08/16/2022 Chief Complaint [...] Converses easily. Abdom: Soft, nontender, nondistended. +BS i4qdfsdhbtv Extrem: no edema, no erythema, nontender Weight [...] MD Digitally Signed by CLOTILDE GARCIA MD [facility] HospitalAnnroqtn79-96-0343 Note Date of Service 08/15/2022 Chief Complaint [...] Converses easily. Abdom: Soft, nontender, nondistended. +BS z4gxjnjfubw Extrem: no edema, no erythema, nontender Weight [...] ALANNA SCANLON DO on 08/15/2022 08:02 AM [facility] HospitalNfmucffd71-90-9807 Palliative care Consult note Date of Service [...] by LESIA DENIS on 08/15/2022 03:37 PM [facility] HospitalWoqcbhld25-19-7416 Note Date of Service 08/15/2022 Chief Complaint [...] Converses easily. Abdom: Soft, nontender, nondistended. +BS x4erlpntkts Extrem: no edema, no erythema, nontender Weight [...] ALANNA SCANLON DO on 08/15/2022 08:02 AM [facility] HospitalRcqsjnyr84-30-1037 Note Date of Service 08/15/2022 Chief Complaint [...] Converses easily. Abdom: Soft, nontender, nondistended. +BS o3qwakdhwfh Extrem: no edema, no erythema, nontender Weight [...] ALANNA SCANLON DO on 08/15/2022 08:02 AM [facility] HospitalCoiwggkm80-19-7446 Note Date of Service 08/15/2022 Chief Complaint [...] Converses easily. Abdom: Soft, nontender, nondistended. +BS q6ermwqaepc Extrem: no edema, no erythema, nontender Weight [...] ALANNA SCANLON DO on 08/15/2022 08:02 AM [facility] HospitalSatgzckr36-76-6788 Note Date of Service 08/15/2022 Chief Complaint [...] Converses easily. Abdom: Soft, nontender, nondistended. +BS d9fnrgtpqrf Extrem: no edema, no erythema, nontender Weight [...] ALANNA SCANLON DO on 08/15/2022 08:02 AM [facility] HospitalKetviher30-33-3337 Nurse Progress note Patient refused colace. Stated It's been giving heartburn for the last 3 days. Digitally Signed by Cecilia English LPN on 08/14/2022 08:22 PM [facility] HospitalAliyfomv06-61-1475 Nurse Progress note Patient refused colace. Stated It's been giving heartburn for the last 3 days. Digitally Signed by Cecilia English LPN on 08/14/2022 08:22 PM [facility] HospitalMcfsidsk41-96-5369 Note Date of Service 08/14/2022 Chief Complaint [...] Converses easily. Abdom: Soft, nontender, nondistended. +BS m2jzyotkrqb. L nephrostomy fluid yellow tinged. Extrem: no [...] ALANNA SCANLON DO on 08/14/2022 06:50 AM [facility] HospitalVzmuwudt73-81-4555 Note IR Procedure Record Summary Primary Physician: VIRAL MANUEL MD Finalized Date/Time: 08/14/22 14:10:33 Pt. Name: LALY NAVAS Austen /Sex: 1990 Female Med Rec #: [id number] Physician: FLIP MARTIN MD Financial #: [id number] Pt. Type: I Room/Bed: 61/A Admit/Disch: 08/08/22 16:43:27 - Institution: Allergies identified in patient's electronic medical record at time of printing on 08/14/22 Entry 1 Entry 2 Substance codeine penicillin Reaction Type Allergy Allergy Last Modified By: Cesar Hyman RN, RN Morris 02/03/21 04/12/20 15:04:17 17:13:24 Case Attendance- IR Entry 1 Entry 2 Entry 3 Case [facility]end[facility] JAMAL Andres Role Performed Primary Surgeon [...] Dose 10 mL Medication OMNIPAQUE 350 50ML Y-540 Radiology Flouroscopy Fluoroscopy Used? Yes Fluoro [...] site marked, Present for Time Out Sandi Picking Crew SupervisorMendel Fortune Relevant images and A, JAMAL Cuellar results are properly labeled and appropriately displayed, Alcohol based prep dry, Double verification of sterility indicators complete Instrument Sterility Team Members VIRAL MANUEL MD, Verifying Sterility Sandi Picking Crew Supervisor Devika A Procedure IR Neph Cath-Neph Ureter W/Guide Left SN Last Modified By: JAMAL Cuellar 08/14/22 14:10:26 Skin Prep- IR Entry 1 Procedure IR Neph Cath-Neph Ureter W/Guide Left SN Skin Prep Prep Area Flank Side Left By Sandi Picking Crew Supervisor Devika A Prep Agents Betadine Solution Hair [...] Radiology - Action Plan Outcomes Met? Yes Exhibit Designer Lexi Marcano RN Completing Procedure Plan Last Modified By: Lexi Marcano RN 08/14/22 12:53:32 Case Comments Finalized By: JAMAL Cuellar Document Signatures Signed By: Sam Junior 08/14/22 13:21 Lexi Marcano RN 08/14/22 12:56 JAMAL Cuellar 08/14/22 14:10 [facility] HospitalKrgqipbv89-04-3733 Note Date of Service 08/14/2022 Chief Complaint [...] Converses easily. Abdom: Soft, nontender, nondistended. +BS r6hnsndvnpl. L nephrostomy fluid yellow tinged. Extrem: no [...] ALANNA SCANLON DO on 08/14/2022 06:50 AM [facility] HospitalDhmseuxa96-14-2605 Note Date of Service 08/14/2022 Chief Complaint [...] Converses easily. Abdom: Soft, nontender, nondistended. +BS p9rxefcncrm. L nephrostomy fluid yellow tinged. Extrem: no [...] ALANNA SCANLON DO on 08/14/2022 06:50 AM [facility] HospitalCteinqxx07-86-8505 Note Date of Service 08/13/2022 Chief Complaint [...] Converses easily. Abdom: Soft, nontender, nondistended. +BS a7acafurpas Extrem: no edema, no erythema, nontender Weight [...] ALANNA SCANLON DO on 08/13/2022 07:00 AM [facility] HospitalHcvkzwar15-49-7340 Note Date of Service 08/13/2022 Chief Complaint [...] Converses easily. Abdom: Soft, nontender, nondistended. +BS s4yfdrhebcy Extrem: no edema, no erythema, nontender Weight [...] ALANNA SCANLON DO on 08/13/2022 07:00 AM [facility] HospitalTxvyvasd71-60-9857 Note ORIGINAL EXAMINATION: THREE XRAY VIEWS OF [...] Sign Date: 08/12/2022 11:43:25 PM Ordering Provider: ASHLEY GRAVES [facility] HospitalJezisexx11-31-8932 Note ORIGINAL EXAMINATION: THREE XRAY VIEWS OF [...] Clotilde Archer MD Preliminary Report By: Dora Gennaro Electronically signed By Clotilde Archer MD Dictated Date: 08/12/2022 11:37:56 PM Prelim Date: 08/12/2022 11:41:09 PM Sign Date: 08/12/2022 11:43:25 PM Ordering Provider: [facility]10-10-2022 Note Date of Service 08/12/2022 Chief Complaint [...] Converses easily. Abdom: Soft, nontender, nondistended. +BS u5benwkapwd Extrem: no edema, no erythema, nontender Weight [...] ALANNA SCANLON DO on 08/12/2022 06:50 AM [facility] HospitalZzpqvfjy86-06-1985 Note Date of Service 08/12/2022 Chief Complaint [...] Converses easily. Abdom: Soft, nontender, nondistended. +BS j0mkhzazktx Extrem: no edema, no erythema, nontender Weight [...] ALANNA SCANLON DO on 08/12/2022 06:50 AM [facility] HospitalNgbpqzfw47-79-5253 Note Date of Service 08/10/22 Chief Complaint [...] MARIA GODOY DO on 08/10/2022 07:21 AM [facility] HospitalIhzerefp72-47-0863 Note Date of Service 08/09/2022 Chief Complaint [...] use. Converses easily. Abdom: Soft, nondistended. +BS y3nvbhkrfog Extrem: no edema, no erythema, nontender Weight [...] Dr. Martin 4. Anxiety - consider social media senior associate consult - declined counseling 5. Cervical cancer [...] prophylaxis - SCDs Orders: diphenhydrAMINE, Start: 08/08/22 17:26: EDT, Dose = 25 mg, = 1 tab(s), Oral, qHS, PRN, as needed for insomnia, 08/08/22 17:: EDT docusate, Start: 08/08/22 20:00:00 EDT, Dose = 100 mg, = 1 cap(s), Oral, BID, 08/08/22 17:: EDT famotidine, Start: 08/08/22 17:: EDT, Dose = 20 mg, = 1 tab(s), Oral, BID, PRN, Reflux, 0, 08/08/22 17:: EDT HYDROmorphone, Start: 08/08/22 EDT, Dose = 1 mg, = 1 mL, IV Push, q2h, PRN, Pain, scale 7-10, 0, 08/08/22 17:: EDT HYDROmorphone, Start: 08/08/22 17: EDT, Dose = 0.5 mg, = 0.5 mL, IV Push, q2h, PRN, Pain, scale 4-6, 0, 08/08/22 17::00 EDT melatonin, Start: 08/08/22 17:: EDT, Dose = 3 mg, = 1 tab(s), Oral, qHS, PRN, as needed for insomnia, 0, 08/08/22 17:26:00 EDT ondansetron, Start: 08/08/22 18:00:00 EDT, Dose = 4 mg, = 2 mL, IV Push, q4h, 0, 08/08/22 17::00 EDT oxyCODONE, Start: 08/08/22 17::00 EDT, Dose = 5 mg, = 1 tab(s), Oral, q4h, PRN, Pain, scale 4-6, 08/08/22 17:26:00 EDT oxyCODONE, Start: 08/08/22 17::00 EDT, Dose = 10 mg, = 2 tab(s), Oral, q4h, PRN, Pain, scale 7-10, 08/08/22 17:26:00 EDT pantoprazole, Start: 08/08/22 17:26:00 EDT, Dose = 40 mg, IV Push, qDay, PRN, Reflux, mL/hr, Infuseover: 2 minute(s), 0, 08/08/22 17:26:00 EDT promethazine, Start: 08/08/22 17:26:00 EDT, Dose = 12.5 mg, = 1 [...] ALANNA SCANLON DO on 08/09/2022 07:30 AM [facility] HospitalThlprwaq25-98-4361 History and physical note Result type: History and Physical Result date: August 08, 2022 15:00 EDT Result status: Auth (Verified) Result title: History and Physical Performed by: ALANNA SCANLON DO on August 08, 2022 12:25 EDT Verified by: ALANNA SCANLON DO on August 08, 2022 20:00 EDT Encounter info: [id number], CERTIFIED PROFESSIONAL MIDWIFE ONC, Office, 08/08/2022 - * Final Report [...] 31 Years old woman who presents from [facility] (drove self) for back pain, likely UTI. [...] use. Converses easily. Abdom: Soft, nondistended. +BS g7tzlzolzwm. Tenderness to palpation in the left lower [...] ALANNA SCANLON DO on 08/09/2022 11:59 AM [facility] HospitalFhmgvsrp78-64-6039 Note Date of Service 08/11/2022 Chief Complaint [...] FARZANA CAST DO on 08/11/2022 07:48 AM [facility] HospitalMwprsyuq22-03-4293 Note Date of Service 08/11/2022 Chief Complaint [...] FARZANA CAST DO on 08/11/2022 07:48 AM [facility] HospitalLhaimgnc55-92-4625 Note Date of Service 08/10/22 Chief Complaint [...] S/p Chemoradiation, in remission - Recent CT 9/30/22 unremarkable for signs of cancer recurrence - [...] MARIA GODOY DO on 08/10/2022 07:21 AM [facility] HospitalCjrlkxed73-57-9680 Note Date of Service 08/10/22 Chief Complaint [...] MARIA GODOY DO on 08/10/2022 07:21 AM [facility] HospitalLzuherjk37-62-8331 Note Date of Service 08/09/2022 Chief Complaint [...] use. Converses easily. Abdom: Soft, nondistended. +BS s0fsrlchsnc Extrem: no edema, no erythema, nontender Weight [...] Dr. Martin 4. Anxiety - consider social media senior associate consult - declined counseling 5. Cervical cancer [...] 0, 08/08/22 17:26:00 EDT oxyCODONE, Start: 08/08/22 17:26:00 EDT, Dose = 5 mg, = 1 tab(s), Oral, q4h, PRN, Pain, scale 4-6, 08/08/22 17:26:00 EDT oxyCODONE, Start: 08/08/22 17:26:00 EDT, Dose = 10 mg, = 2 tab(s), Oral, q4h, PRN, Pain, scale 7-10, 08/08/22 17:26:00 EDT pantoprazole, Start: 08/08/22 17:26:00 EDT, Dose = 40 mg, IV Push, qDay, PRN, Reflux, mL/hr, Infuseover: 2 minute(s), 0, 08/08/22 17:26:00 EDT promethazine, Start: 08/08/22 17:26:00 EDT, Dose = 12.5 mg, = 1 [...] ALANNA SCANLON DO on 08/09/2022 07:30 AM [facility] HospitalLrbokrmu16-31-8934 Note System generated consult secondary to established nephrostomy tube. Appliance intact with dry dressing; draining well. Patient states no issues. Digitally Signed by JAMAL Bach February on 08/09/2022 12:02 PM [facility] HospitalXxtuufra49-58-2524 Note ORIGINAL EXAMINATION: ULTRASOUND OF THE KIDNEYS [...] Sign Date: 08/09/2022 8:05:44 AM Ordering Provider: [facility]10-07-2022 History and physical note Result type: History and Physical Result date: August 08, 2022 15:00 EDT Result status: Auth (Verified) Result title: History and Physical Performed by: ALANNA SCANLON DO on August 08, 2022 12:25 EDT Verified by: ALANNA SCANLON DO on August 08, 2022 20:00 EDT Encounter info: [id number], CERTIFIED PROFESSIONAL MIDWIFE ONC, Office, 08/08/2022 - * Final Report [...] 31 Years old woman who presents from [facility] (drove self) for back pain, likely UTI. [...] use. Converses easily. Abdom: Soft, nondistended. +BS z4kushpvltm. Tenderness to palpation in the left lower [...] on antibiotics due to recent UTI without improvementin symptoms on a completed antibiotic course. We [...] ALANNA SCANLON DO on 08/09/2022 11:59 AM [facility] HospitalWigvuuqr44-36-8347 Note Date of Service 08/09/2022 Chief Complaint [...] use. Converses easily. Abdom: Soft, nondistended. +BS e3wuqlpqwsw Extrem: no edema, no erythema, nontender Weight [...] Dr. Martin 4. Anxiety - consider social media senior associate consult - declined counseling 5. Cervical cancer [...] Push, q2h, PRN, Pain, scale 7-10, 0, 08/08/22:26:00 EDT HYDROmorphone, Start: 08/08/22:: EDT, Dose = 0.5 mg, = 0.5 mL, IV Push, q2h, PRN, Pain, scale 4-6, 0, 08/08/22::00 EDT melatonin, Start: 08/08/22: EDT, Dose = 3 mg, = 1 tab(s), Oral, qHS, PRN, as needed for insomnia, 0, 08/08/22::00 EDT ondansetron, Start: 08/08/22 18:00:00 EDT, Dose = 4 mg, = 2 mL, IV Push, q4h, 0, 08/08/22::00 EDT oxyCODONE, Start: 08/08/22:: EDT, Dose = 5 mg, = 1 tab(s), Oral, q4h, PRN, Pain, scale 4-6, 08/08/22::00 EDT oxyCODONE, Start: 08/08/22:: EDT, Dose = 10 mg, = 2 tab(s), Oral, q4h, PRN, Pain, scale 7-10, 08/08/22::00 EDT pantoprazole, Start: 08/08/22 17::00 EDT, Dose = 40 mg, IV Push, qDay, PRN, Reflux, mL/hr, Infuseover: 2 minute(s), 0, 08/08/22::00 EDT promethazine, Start: 08/08/22::00 EDT, Dose = 12.5 mg, = 1 [...] ALANNA SCANLON DO on 08/09/2022 07:30 AM [facility] HospitalLxdpusrl95-41-3362 Note ORIGINAL EXAMINATION: ULTRASOUND OF THE KIDNEYS [...] Sign Date: 08/09/2022 8:05:44 AM Ordering Provider: [facility]10-06-2022 Summary of episode note ILEANA NAVASAusten Boyce [...] Care Team Attending Physician - BRITTNI LU APRN-TECHNICAL PROGRAM MANAGER Primary Care Physician - FLIP MARTIN MD Vitals Temperature (Oral) 36.6 C Heart Rate 71 Respiratory Rate 18 Blood Pressure 126/87(Left Arm) What to do next Scheduled Follow-Up Appointments Appointment Type When With Where Contact InformationIR Neph Cath-Neph Ureter W/Guide Left 08/15/2022 01:00 PM EDT IR SO OV Follow Up 01/01/2023 11:30 AM FLIP CORRALES MD [facility] [address] [place] [phone] Medications What How Much When Why Instructions [...] - 7.1 10^3/mcL BMP w/ Ionized Calcium (Cancer Center) (08/08/2022) Glucose Level - 97 mg/dL [...] to receive it can visit one of [facility] vaccine clinics. There are many vaccine clinic locations within the [facility]. For locations and available times, please visit [email or web address]. It is important to note that some COVID mobile vaccine clinics are held outdoors and may be canceled in rainy orstormy conditions. To learn more about pediatric vaccinations (ages 5-11), we invite you to visit the [facility] webpage. https://www.[email or web address].org/pages/0445-Obeax-Iqsmdvfnyyw-Wvjhbvcchc-Hgmps-Oco stions.htmlTo learn more about the COVID-19 vaccine, we invite you to visit the [facility] website for a list of frequently asked questions. [email or web address]/[email or web address]-Prfdvhj-Mvxqdxwoej _[email or web address]-Questions.pdf [facility] Patient Portal Access Instructions: Stay connected with your healthcare team and access your personal medical information anytime with the [employer] [employer] Patient Portal.If you would like a full copy of your medical records, please contact the [facility] Medical Records Department, Friday through Friday between 8a.m. and 4:30p.m. Please follow the directions below to access the portal: 1.Access the email account you provided upon registration to the [facility].2.Look for an invitation email from [facility].3.Open the email and access the invitation link: Accept Invitation to [facility]4.Fill in the required quintero to create your account. Sign into www.[email or web address] with your username and password that you [...] you will allow to register on the [facility] Patient Portal for access to your information. You can also access the [facility] Patient Portal on the [employer]. Simply click on Health Records under [employer] and then click on the [employer] logo. HOW TO SAFELY DISPOSE OF PRESCRIPTION [...] Call your local pharmacy or go to http://bit.Segmint/1T7Yf2w to find one close to you.3.Make use of household items: Use cat litter or old coffee grounds to dispose medications if other options arenot available. Mix your drugs with these household products, seal them in an airtight container andthrow it into the garbage. Call [facility]: [phone] to be sure your drugs can be [...] aware that I should contact my doctor. Patient/Wire Hanger Signature: Date/Time: Relationship to Patient: Witness Name/Signature: Date/Time: [facility] HospitalRfvrhofb70-01-9864 Note* JAMAL Lindsey: SIGN, AUTHOR, PERFORM Event Display: IR Procedure Record Authored Date: [id number] IR Procedure Record Summary Primary Physician: Finalized Date/Time: 07/04/22 13:57:26 Pt. Name: ILEANA NAVASAusten Boyce D.O.B./Sex: 1990 Female Med Rec #: [id number] Physician: Financial #: [id number] Pt. Type: O Room/Bed: / Admit/Disch: 07/04/22 [...] 5, Gauze Technologist Notes 8.5F x 26cm Perham sponge 4 X 4 Nephroureterostomy Stent lot#[id number] LT Renal Last Modified By: JAAML Lindsey 07/04/22 13:56:46 General Case Data - [...] 07/04/22 12:47:00 Last Modified By: Sam Junior Tech Devika A 07/04/22 12:51:46 Immediate Post Procedure [...] properly Gail Phillips, Sam Junior labeled and Tech Devika A appropriately displayed, Double verification of sterility indicators complete Instrument Sterility Procedure IR Neph Cath-Neph Ureter W/Guide Left SN Last Modified By: Sam Junior 07/04/22 12:54:50 Skin Prep- IR Entry 1 Procedure IR Neph Cath-Neph Ureter W/Guide Left SN Skin Prep Prep Area Back Side Left By Patti Johnson Rad Prep Agents Betadine Solution Tech Hair Removal Method N/A Last Modified By: Sam Junior 07/04/22 12:55:26 Patient Positioning- IR Entry 1 [...] Radiology - Action Plan Outcomes Met? Yes Exhibit Designer JAMAL Lindsey Completing Procedure Plan Last Modified [...] Signatures Signed By: JAMAL Lindsey 07/04/22 13:57 [facility] 09-01-2022 Evaluation + Plan noteExtracted from: Title:IR [...] Ready to change: Yes. Physical Exam Vitals: Rxisydccfcu86.7 (10:37) Systolic Blood PressureNo result Diastolic Blood PressureNo result Pulse88 (10:37) RbG048 (10:37) Respiratory Rate18 (10:37) General: Alert, cooperative. [...] Date:01/01/2023 11:30:00 AM Scheduled Provider:FLIP MARTIN MD Location:[facility] Appointment Type:SO OV Follow Up Future [...] IR Neph Cath-Neph Ureter W/Guide Left 06/02/23 [facility] 09-01-2022 Note IR Procedure Record Summary Primary Physician: Finalized Date/Time: 07/04/22 13:57:26 Pt. Name: LORI NAVASCHRIS Mittal/Sex: 1990 Female Med Rec #: [id number] Physician: Financial #: [id number] Pt. Type: O Room/Bed: / Admit/Disch: 07/04/22 10:21:00 - Institution: Allergies identified in patient's electronic medical record at time of printing on 07/04/22 Entry 1 Entry 2 Substance codeine penicillin Reaction Type Allergy Allergy Last Modified By: Cesar Hyman RN, RN Evan 02/03/21 04/12/20 15:04:17 17:13:24 Case Attendance- IR Entry 1 Entry 2 Entry 3 Case Attendee VIRAL MANUEL MD, JAMAL Joe Role Performed Radiologist Procedure Scrub Technologist Procedure Nurse Details Time In 07/04/22 12:25:00 09/01/22 12:15:00 07/04/22 12:15:00 Time Out 07/04/22 12:47:00 [...] 5, Gauze Technologist Notes 8.5F x 26cm Perham sponge 4 X 4 Nephroureterostomy Stent lot#[id number] LT Renal Last Modified By: JAMAL Lindsey [...] Method N/A Last Modified By: Sam Junior Tech Devika A 07/04/22 12:55:26 Patient Positioning- IR [...] Radiology - Action Plan Outcomes Met? Yes Exhibit Designer JAMAL Lindsey Completing Procedure Plan Last Modified [...] by Last Modified By: Sam Junior Mendel Jenkins 07/04/22 13:00:26 Case Comments Finalized By: JAMAL Lindsey Document Signatures Signed By: JAMAL Lindsey 07/04/22 13:57 [id number] Discharge instructions Patient Education 07/04/2022 11:35:17 Radiology- Nephrostomy Tube Insertion(CUSTOM) CARMEL Nephrostomy Tube Insertion Discharge Instructions Interventional Radiology [facility] [address] [place] [address] The procedure that you had done today [...] mayexperience the feeling of needing to urinate. Mork-rim-csvhdob pain medication should be used for pain [...] instruction below: 8:00 am- 5:00 pm call [phone] After 5:00 pm call [phone] After 24 hours, contact the physician who [...] until you are awake and alert. Take pemm-knx-lxhuqkm and prescription medicines only as told by [...] 08/10/2014 Document Revised: 10/02/2018 Document Reviewed: 02/08/2017 [employer] Patient Education 2020 [employer] Follow Up Care 05/23/2022 11:54:48 With:FLIP MARTIN MD Address: [phone] When: Unknown Comments:Follow-up as scheduled [facility] 09-01-2022 Note INTERVENTIONAL RADIOLOGY POST PROCEDURE NOTE DATE: 07/04/2022 13:14:19 NAME: ANTONELLALALY Pre-Procedure Diagnosis: Left ureteral obstruction. Post Procedure Diagnosis: Same. Broke Beater Operator: Dr. Viral Manuel Procedure: Left nephroureteral catheter exchange. Anesthesia: Procedural sedation. Findings: Success. Estimated Blood Loss: Minimal (Less Than 10 mL). Specimen: None. Complications: None. Full report with procedural details to follow and will become available under the Radiology tab of Results Review. Please contact for any questions or concerns. Viral Manuel MD Interventional Radiology Pager: [phone] Digitally Signed by VIRAL MANUEL MD on 07/04/2022 01:14 PM [id number] Summary of episode note Discharge Instructions Thank you for allowing [facility] to assist you with your healthcare needs. The following is importantdischarge information regarding your hospital visit. Your Care Team FLIP MARTIN MD What to do next Scheduled Follow-Up Appointments Appointment Type When With Where Contact InformationSO OV Follow Up 01/01/2023 11:30 AM EST FLIP MARTIN MD [facility] Follow Up Appointments Follow Up with FLIP MARTIN MD When Why: Follow-up as scheduled Where: [phone] Allergies codeine penicillin Medications Please ask your [...] medication providers or retail pharmacies. Education Materials CARMEL Nephrostomy Tube Insertion Discharge Instructions Interventional Radiology [facility] [address] [address] The procedure that you had done today [...] mayexperience the feeling of needing to urinate. Srna-ixg-ccjcqsg pain medication should be used for pain [...] instruction below: 8:00 am- 5:00 pm call [phone] After 5:00 pm call [phone] After 24 hours, contact the physician who [...] until you are awake and alert. Take vunb-wap-jdjxial and prescription medicines only as told by [...] 08/10/2014 Document Revised: 10/02/2018 Document Reviewed: 02/08/2017 [employer] Patient Education 2020 [employer] Additional Information VACCINATE! IT SAVES LIVES! Members of the community who have not yet received the COVID-19 vaccine and would like to receive it can visit one of [facility] vaccine clinics. There are many vaccine clinic locations within the [facility]. For locations and available times, please visit [email or web address]/. It is important to note that some COVID mobile vaccine clinics are held outdoors and may be canceled in rainy or stormy conditions. To learn more about pediatric vaccinations (ages 5-11), we invite you to visit the [facility] webpage. https://www.[email or web address]/pages/[email or web address]-Vmsmy-Iobpxrekfkc-Akzmkycrkj-Beskr-Gkl stions.htmlTo learn more about the COVID-19 vaccine, we invite you to visit the [employer] website for a list of frequently asked questions. [email or web address]/[email or web address]-[email or web address]-Rrweofwl/xdylk-Wtusgar-Gzkucefyjb _[email or web address]-Questions.pdf [facility] Patient Portal Access Instructions: Stay connected with your healthcare team and access your personal medical information anytime with the [facility] Patient Portal.If you would like a full copy of your medical records, please contact the [facility] Medical Records Department, Friday through Friday between 8a.m. and 4:30p.m. Please follow the directions below to access the portal: 1.Access the email account you provided upon registration to the [facility].2.Look for an invitation email from [facility].3.Open the email and access the invitation link: Accept Invitation to [facility] [employer]4.Fill in the required quintero to create your account. Sign into www.[employer] with your username and password that you [...] you will allow to register on the [facility] Patient Portal for access to your information. You can also access the [facility] Patient Portal on the [employer]. Simply click on Health Records under [employer] and then click on the [employer] logo. HOW TO SAFELY DISPOSE OF PRESCRIPTION [...] Call your local pharmacy or go to [email or web address] to find one close to you.3.Make use of household items: Use cat litter or old coffee grounds to dispose medications if other options arenot available. Mix your drugs with these household products, seal them in an airtight container andthrow it into the garbage. Call [facility]: [phone] to be sure your drugs can be [...] aware that I should contact my doctor. Patient/Wire Hanger Signature: Date/Time: Relationship to Patient: Witness Name/Signature: Date/Time: [id number] History and physical note Interventional Radiology Focused [...] Ready to change: Yes. Physical Exam Vitals: Eoavczsdcff29.7 (10:37) Systolic Blood PressureNo result Diastolic Blood PressureNo result Pulse88 (10:37) PcF773 (10:37) Respiratory Rate18 (10:37) General: Alert, cooperative. [...] VIRAL MANUEL MD on 07/04/2022 01:35 PM [id number] Hospital Discharge instructions Patient Education 04/19/2022 16:08:04 [...] recently been a patient in a hospital, correction, or another care facility. Have another illness [...] soap and water or an alcohol-based hand soldering machine operator automatic before they enter your roomand before they [...] soap and water or an alcohol-based hand soldering machine operator automatic before they enter your room and before they leave your room. Taking antibiotics exactly as prescribed by your health care provider. Washing your hands with soap and water or an alcohol-based hand soldering machine operator automatic after: ?Using the bathroom. ?Touching or coming [...] soap and water or an alcohol-based hand soldering machine operator automatic, especially after using the bathroom. This information is not intended to replace advice given to you by your health care provider. Make sure you discuss any questions you have with your health care provider. Document Released: 11/22/2017 Document Revised: 10/02/2018 Document Reviewed: 11/22/2017 [employer] Patient Education 2020 [employer] Follow Up Care 04/14/2022 22:01:45 With:A referral has been made to [facility] for additional resources. Address: When: Unknown With:MARGOTH RUVALCABA BA, MD, Infectious Disease, Infectious Disease Group Address: [facility] [address] [place] [address]- When: Unknown Comments:Please call for a follow up appointment within 2 weeks With:[facility] - [phone] Address: When: Unknown With:[facility] - [phone]. Please go to [place] for labs to be drawn and Port dressing change. APPT scheduled: SUNDAY 04/22 @ 11:00 AM. (Main entrance; Registration on left) Address: When: Unknown With:FLIP MARTIN MD Address: [address] [place] [address] [phone] When:05/30/2022 14:50:00 [facility] 06-13-2022 Evaluation + Plan noteExtracted from: Title:History [...] tract infections. A UA was collected at [address] [place] [address] and was positive for nitrates. Patient has been and remains afebrile, WBC 11.0, patient was previously on ciprofloxacin and was transitioned to Bactrim today [facility] however did not take any of this medication yet, she received Rocephin at [facility] and we will switch her to meropenem due to previous sensitivities. Patient has left nephrostomy tube with clear yellow urine. She states that she emptied her nephrostomy tube for 600 cc of clear yellow urine today. A CT scan was obtained to [facility] which showed slightly dilated left ureter [...] Charted Minimum Maximum Temp 36.7(APR 15:20) 36.7(APR 15:20) 36.8(APR 14:) Resp Rate 18(APR 15:20) 18(APR 14:09) 18(APR 14:) SBP 100(APR 15:20) 100(APR 15:20) H 149(APR 14:) DBP 69(APR 15:20) 69(APR 15:20) H 95(APR 14:) Physical exam: General Appearance: [...] this - Awaiting urine cultures collected at [facility], will follow up on throughout the week [...] urine culture and sensitivities. Addendum by BRITTNI LU-TECHNICAL PROGRAM MANAGER on April 15, 2022 11:03:55 EDT This [...] Date:05/30/2022 02:50:00 PM Scheduled Provider:FLIP MARTIN MD Location:[facility] Appointment Type:SO OV Follow Up Future Scheduled Tests Radiology* IR Neph Cath-Neph Ureter W/Guide Left 05/23/22 [facility] 06-09-2022 Hospital Discharge instructions Patient Education 04/11/2022 14:21:02 Radiology- Procedure/Biopsy 02/16/2020 (CUSTOM) CARMEL Radiology Procedure/Biopsy Discharge Instructions Interventional Radiology [facility] [address] [place] [address] Today, you had a . This procedure/biopsy [...] 1 to 2 days following the procedure. Mjft-dez-mzgflje pain medication should be used for pain [...] instruction below: 8:00 am- 5:00 pm call [phone] After 5:00 pm call [phone] After 24 hours, contact the physician who [...] with primary care provider Address:Unknown When: Unknown [facility] 05-24-2022 Evaluation + Plan noteExtracted from: Title:IR [...] Ready to change: Yes. Physical Exam Vitals: Koddvhlhfpm35.7 (11:47) Systolic Blood PressureNo result Diastolic Blood PressureNo result Pulse76 (11:47) GdO562 (11:47) Respiratory Rate18 (11:47) General: Alert, cooperative. Heart: RRR Lungs: CTA bilaterally The remainder of the physical exam is noncontributory. Labs Anticoagulation Labs No qualifying data available. No qualifying data available. Assessment/Treatment Plan Image guided left nephroureteral tube exchange Post Procedure Discharge Plan Patient to be discharged home. Fani Beckman PA-C Interventional Radiology Pager: [phone] IR dept: x [phone] Available on [employer] Future Appointments Appointment Date:05/30/2022 02:50:00 PM Scheduled Provider:FLIP MARTIN MD Location:[facility] Appointment Type:SO OV Follow Up [facility] 02-18-2022 Evaluation + Plan noteExtracted from: Title:IR pre-procedure H&P - LEFT nephrostomy tube exchange Author:FANI BECKMAN PA-C Date:12/21/21 Interventional Radiology Focused Preprocedure History/Physical Reason for Visit Nephrostomy in Place, Due for Exchange History of Presenting Illness/Planned IR Procedure 30 y.o female with history of cervical cancer and hydronephrosis presents for routine LEFT nephrostomy tube exchange. Patient had ureteral stent placed in 06/2021 at [facility] and has not had a nephrostomy tube [...] Ready to change: Yes. Physical Exam Vitals: Raudivcsdzm94.7 (10:38) Systolic Blood PressureNo result Diastolic Blood PressureNo result Pulse81 (10:38) ZiR395 (10:38) Respiratory Rate16 (10:38) General: Alert, cooperative. : + LEFT nephrostomy tube The remainder of the physical exam is noncontributory. Labs Anticoagulation Labs No qualifying data available. No qualifying data available. Assessment/Treatment Plan Image guided LEFT nephrostomy tube change Post Procedure Discharge Plan Patient to be discharged home. Fani Beckman PA-C Interventional Radiology Pager: [phone] IR dept: x [phone] Available on [employer] Future Appointments Appointment Date:01/29/2022 11:00:00 AM Scheduled Provider: Location:IR Appointment Type:IR Neph Cath-Neph Ureter W/Guide Left Future Scheduled Tests Laboratory* Urinalysis 12/22/20 * Urine Culture 12/22/20 Radiology* IR Neph Cath-Neph Ureter W/Guide Left 01/29/22 * US Renal 12/27/20 [facility] 02-18-2022 Hospital Discharge instructions Patient Education 12/21/2021 11:35:22 Radiology- Procedure/Biopsy 02/16/2020 (CUSTOM) CARMEL Radiology Procedure/Biopsy Discharge Instructions Interventional Radiology [facility] [address] [place] [address] Today, you had a Left Nephrostomy Tube [...] 1 to 2 days following the procedure. Ytci-ifn-juzmknk pain medication should be used for pain [...] instruction below: 8:00 am- 5:00 pm call [phone] After 5:00 pm call [phone] After 24 hours, contact the physician who [...] with primary care provider Address:Unknown When: Unknown [facility] 09-11-2021 NoteSend Summary: Discharge Summary Providers: Provider [...] at Discharge: .Home Vital Signs: T PRBPSpO2 Value36.04713441/01883% Date/Time07/14 8: 8: 8: 8: 8:43 Range(36.8C [...] Follow up Scheduled Date/Time: 09-Aug-2021 11:10 Location: [facility], [address] [place] [address], [address] [address] Discharge Medications: Home Medication sulfamethoxazole-trimethoprim 800 mg-160 mg oral tablet - 1 tab(s) orally every 12 hours PRN Medication LORazepam 1 mg oral tablet - 1 tab(s) orally 3 times a day, As Needed Electronic Signatures: Shira Teran) (Signed 19-Jul-2021 12:33) Authored: Send Summary, Summary Content, Ongoing Care, Note Completion Last Updated: 19-Jul-2021 12:33 by Shira Teran)[facility]09-09-2021 NoteHistory of Present Illness: HPI: LALY NAVAS is a 30 year old Female with PMH stage IIIB invasive squamous cell carcinoma (dx [...] As Needed. Objective: Objective Information: T PRBPSpO2 [id number]/24555% Date/Time07/12 0: 0: 0: 0: 0:17 Range(36.4C [...] Reference Range: STRAW,YELLOW Appearance, Urine HAZY Specific [place], Urine 1.010 pH, Urine 6.0 Protein, Urine [...] Authorization (EUA) and has been verified by [facility] ([facility]). This test is only authorized for the duration of time korin Date of Symptom Onset [id number] Culture, Blood Trending View [id number] 14:43:00 11-Jul-2021 14:42:00 Culture, BloodNEGATIVE TO DATE, [...] Lymphocyte Count 2.39 Monocyt (more content not included)...[facility]09-09-2021 Hospital Discharge instructions* Vascular Access Port: [id number] Access Port: right chestVascular Access Port: top entry * Activity:activity as tolerated. * Follow Up Appointment 1:Physician/Dept/Service: Dr Polo Harden for Referral: Follow upScheduled Date/Time: 09-Aug-2021 11:10Location: [facility], [address] [place] [address], [address], [place], [place] [address]Phone Number: [phone] [facility]08-30-2021 NotePre-procedure Verification and Time Out: [...] normal anatomy Procedure performed by: Dr. Munoz Indian Blanket Weaver(s): Arie Esqueda (resident) Estimated Blood Loss (mL): [...] Completion Last Updated: 02-Jul-2021 15:23 by Rohith Munoz)[facility] Author Jatin Garcia [place] Note Date/Time April 09, 2025 2:44a [facility] Medical Records Department [address] [place] [address] Emergency Department Summary 04/09/25 MR#: [id number] Acct: [id number] Name: LALY NAVAS Rep #:[id number] : 1990 34 From: Jatin Garcia MD [...] has been doing but the pain is qev-ux-kwxgvye and she is feeling very nauseated and does not want to waste her pain management prescription by vomiting it up. She denies any fevers or chills. No dysuria orhematuria. She has been on antibiotics for several weeks, currently on Bactrim,and states that she was admitted to [facility] where her oncologist and urologist are, she [...] has known about those issues for years. [facility] Medical History Nephrostomy present Kidney failure Kidney [...] 04/09/25 00:21 Penicillins (PCN) Allergy Hives Verified 06/07/25 00:21 Social History Smoking Status: Current every [...] % (Auto) 54.6 Lymph % (Auto) 32.0 [place] % (Auto) 8.9 Eos % (Auto) 3.2 [...] Clarity Clear Urine pH 6.0 Ur Specific [place] 1.010 Urine Protein Negative Urine Glucose (UA) [...] Staff - Active Staff] - Print Language: Samoan Disposition Disposition: Home, Self Care What to do if you have Problems For any increased pain, shortness of breath, bleeding, nausea or vomiting, chestpain, or any unexpected problems, contact your Primary Care Provider. Call [facility] ([phone]) or report to the closest Emergency Room. Call 911 if necessary. 04/09/25 0244 <Electronically signed by Jatin Garcia MD> Cosigner Signature (if applicable): CC: OLE PACE ~ Signed [place] Work Phone: Evaluation + Plan note Future Appointments Appointment Date:11/22/2021 03:40:00 PM Scheduled Provider:FLIP MARTIN MD Location:[facility] Appointment Type:SO OV Follow Up Future Scheduled Tests Laboratory* Urinalysis 12/22/20 * Urine Culture 12/22/20 * Complete Blood Count 08/30/20 * Complete Metabolic Panel 08/30/20 Radiology* XR Abdomen AP 11/09/20 * IR Nephrostomy Tube Change Lt Guide 08/31/20 * US Renal 12/27/20 * IR Nephrostomy Tube Remove Lt Guide 09/06/20 [facility] Evaluation + Plan note Future Appointments Appointment Date:03/26/2022 01:00:00 PM Scheduled Provider: Location:IR Appointment Type:IR Neph Cath-Neph Ureter W/Guide Left Appointment Date:05/30/2022 02:50:00 PM Scheduled Provider:FLIP MARTIN MD Location:[facility] Appointment Type:SO OV Follow Up Future Scheduled Tests Radiology* IR Neph Cath-Neph Ureter W/Guide Left 03/26/22 [facility] Evaluation + Plan note Future Appointments Appointment Date:05/23/2022 11:00:00 AM Scheduled Provider: Location:IR Appointment Type:IR Neph Cath-Neph Ureter W/Guide Left Appointment Date:05/30/2022 02:50:00 PM Scheduled Provider:FLIP MARTIN MD Location:[facility] Appointment Type:SO OV Follow Up Future Scheduled Tests Radiology* IR Neph Cath-Neph Ureter W/Guide Left 05/23/22 [facility] Evaluation + Plan note Future Appointments Appointment Date:08/15/2022 01:00:00 PM Scheduled Provider: Location:IR Appointment Type:IR Neph Cath-Neph Ureter W/Guide Left Appointment Date:01/01/2023 11:30:00 AM Scheduled Provider:FLIP MARTIN MD Location:[facility] Appointment Type:SO OV Follow Up Diagnostic [...] IR Neph Cath-Neph Ureter W/Guide Left 08/15/22 [facility] Evaluation + Plan note Future Appointments Appointment Date:10/02/2022 11:00:00 AM Scheduled Provider: Location:IR Appointment Type:IR Neph Cath-Neph Ureter W/Guide Left Appointment Date:01/01/2023 11:30:00 AM Scheduled Provider:FLIP MARTIN MD Location:[facility] Appointment Type:SO OV Follow Up Future [...] IR Neph Cath-Neph Ureter W/Guide Left 10/02/22 [facility] Evaluation + Plan note Future Appointments Appointment Date:10/02/2022 11:00:00 AM Scheduled Provider: Location:IR Appointment Type:IR Neph Cath-Neph Ureter W/Guide Left Appointment Date:01/01/2023 11:30:00 AM Scheduled Provider:FLIP MARTIN MD Location:[facility] Appointment Type:SO OV Follow Up Diagnostic [...] IR Neph Cath-Neph Ureter W/Guide Left 10/02/22 [facility] Evaluation + Plan note Future Appointments Appointment [...] IR Neph Cath-Neph Ureter W/Guide Left 01/07/23 [facility] Evaluation + Plan note Future Appointments Appointment [...] IR Neph Cath-Neph Ureter W/Guide Left 01/07/23 [facility] evaluation + Plan note Future Appointments Appointment Date:02/20/2023 02:50:00 PM Scheduled Provider:FLIP MARTIN MD Location:[facility] Appointment Type:SO OV Appointment Date:05/12/2023 11:00:00 [...] IR Neph Cath-Neph Ureter W/Guide Left 05/12/23 [facility] Evaluation + Plan note Future Appointments Appointment Date:06/24/2023 11:00:00 AM Scheduled Provider: Location:IR Appointment Type:IR Neph Cath-Neph Ureter W/Guide Left Appointment Date:08/20/2023 03:20:00 PM Scheduled Provider:FLIP MARTIN MD Location:[facility] Appointment Type:SO OV Follow Up Future Scheduled Tests Laboratory* Pathology Tire Repairer Request 05/15/23 * Urinalysis 02/14/23 Radiology* IR [...] BD Bone Density DEXA Axial Skeleton 05/15/23 [facility] Evaluation + Plan note Future Appointments Appointment Date:06/30/2023 02:00:00 PM Scheduled Provider: Location:IR Appointment Type:IR Neph Cath-Neph Ureter W/Guide Left Appointment Date:07/30/2023 11:30:00 AM Scheduled Provider:FLIP MARTIN MD Location:[facility] Appointment Type:SO OV Follow Up Future Scheduled Tests Laboratory* Pathology Tire Repairer Request 05/15/23 * Urinalysis 02/14/23 Radiology* IR [...] BD Bone Density DEXA Axial Skeleton 05/15/23 [facility] Evaluation + Plan note Future Appointments Appointment Date:07/31/2023 03:00:00 PM Scheduled Provider:OLE PACE MD Location:[facility] Palliative Appointment Type:PALL New Patient Appointment Date:09/04/2023 01:00:00 PM Scheduled Provider: Location:IR Appointment Type:IR Nephrostomy Tube Change Lt Guide Appointment Date:10/31/2023 10:00:00 AM Scheduled Provider:BRITTNI LU Location:[facility] Appointment Type:SO OV Follow Up Future Scheduled Tests Laboratory* Pathology Tire Repairer Request 05/15/23 * Urinalysis 02/14/23 Radiology* IR [...] IR Nephrostomy Tube Change Lt Guide 06/21/24 [facility] Evaluation + Plan note Future Appointments Appointment Date:09/04/2023 01:00:00 PM Scheduled Provider: Location:IR Appointment Type:IR Nephrostomy Tube Change Lt Guide Appointment Date:09/09/2023 10:30:00 AM Scheduled Provider:OLE PACE MD Location:[facility] Appointment Type:PALL OV Follow Up Appointment Date:10/31/2023 10:00:00 AM Scheduled Provider:BRITTNI LU Location:[facility] Appointment Type:SO OV Follow Up Future Scheduled Tests Laboratory* Pathology Tire Repairer Request 05/15/23 * Urinalysis 02/14/23 Radiology* IR [...] IR Nephrostomy Tube Change Lt Guide 06/21/24 [facility] Evaluation + Plan note Future Appointments Appointment Date:10/14/2023 01:00:00 PM Scheduled Provider:OLE PACE MD Location:[facility] Appointment Type:PALL OV Follow Up Appointment Date:10/31/2023 10:00:00 AM Scheduled Provider:BRITTNI LU Location:[facility] Appointment Type:SO OV Follow Up Future Scheduled Tests Laboratory* Urinalysis 02/14/23 Radiology* IR Neph Cath-Neph Ureter W/Guide Left 06/30/23 * IR Nephrostomy Tube Change Lt Guide 09/04/23 [facility] Evaluation + Plan note Future Appointments Appointment Date:12/03/2023 11:00:00 AM Scheduled Provider: Location:IR Appointment Type:IR Nephrostomy Exchange Appointment Date:12/08/2023 03:00:00 PM Scheduled Provider:OLE PACE MD Location:[facility] Appointment Type:PALL OV Follow Up Appointment Date:12/08/2023 03:40:00 PM Scheduled Provider:BRITTNI LU Location:[facility] Appointment Type:SO OV Future Scheduled Tests Laboratory* Urinalysis 02/14/23 Radiology* IR Nephrostomy Exchange 12/03/23 * IR Neph Cath-Neph Ureter W/Guide Left 06/30/23 * IR Nephrostomy Tube Change Lt Guide 09/04/23 [facility] evaluation + Plan note Future Appointments Appointment Date:01/06/2024 10:30:00 AM Scheduled Provider:OLE PACE MD Location:[facility] Appointment Type:PALL OV Follow Up Appointment Date:01/14/2024 10:00:00 AM Scheduled Provider: Location:IR Appointment Type:IR Nephrostomy Exchange Appointment Date:04/07/2024 03:20:00 PM Scheduled Provider:BRITTNI LU Location:[facility] Appointment Type:SO OV Follow Up Future Scheduled Tests Laboratory* Pathology Tire Repairer Request 12/08/23 * Urinalysis 02/14/23 Radiology* IR Nephrostomy Exchange 01/14/24 * IR Neph Cath-Neph Ureter W/Guide Left 06/30/23 * IR Nephrostomy Tube Change Lt Guide 09/04/23 [facility] Evaluation + Plan note Future Appointments Appointment Date:01/14/2024 10:00:00 AM Scheduled Provider: Location:IR Appointment Type:IR Nephrostomy Exchange Appointment Date:02/03/2024 10:30:00 AM Scheduled Provider:OLE PACE MD Location:[facility] Appointment Type:PALL OV Follow Up Appointment Date:04/07/2024 03:20:00 PM Scheduled Provider:BRITTNI LU Location:[facility] Appointment Type:SO OV Follow Up Future Scheduled Tests Laboratory* Urinalysis 02/14/23 Radiology* IR Nephrostomy Exchange 01/14/24 * IR Neph Cath-Neph Ureter W/Guide Left 06/30/23 * IR Nephrostomy Tube Change Lt Guide 09/04/23 [facility] evaluation + Plan note Future Appointments Appointment Date:04/01/2024 11:00:00 AM Scheduled Provider:OLE PACE MD Location:[facility] Appointment Type:PALL OV Follow Up Appointment Date:04/07/2024 03:20:00 PM Scheduled Provider: Location:[facility] Appointment Type:SO OV Follow Up Future Scheduled Tests Laboratory* Clostridium difficile (PCR) 03/04/24 * Ova + Parasite Exam 03/04/24 Radiology* IR Nephrostomy Tube Change Lt Guide 09/04/23 [facility] evaluation + Plan note Future Appointments Appointment Date:03/14/2025 01:30:00 PM Scheduled Provider:OLE PACE MD Location:[facility] Appointment Type:PALL OV Follow Up Appointment Date:03/30/2025 10:40:00 AM Scheduled Provider:GONZALEZ SANDERS MD Location:UROLOGY Appointment Type:URO OV Appointment Date:04/13/2025 01:00:00 PM Scheduled Provider: Location:IR Appointment Type:IR Nephrostomy Exchange Appointment Date:05/18/2025 11:20:00 AM Scheduled Provider: Location:[facility] Appointment Type:SO OV Follow Up Future Scheduled Tests Laboratory* hCG, quantitative (AH/AM Only) 11/15/24 Radiology* IR Nephrostomy Exchange 04/13/25 * IR Nephrostomy Exchange 12/30/24 * CT Renal 03/08/25 * NM Kidney Diuretic 03/08/25 [facility] evaluation + Plan note Future Appointments Appointment Date:03/30/2025 10:40:00 AM Scheduled Provider:GONZALEZ SANDERS MD Location:UROLOGY Appointment Type:URO OV Appointment Date:03/30/2025 11:30:00 AM Scheduled Provider:OLE PACE MD Location:[facility] Appointment Type:PALL OV Follow Up Appointment Date:04/13/2025 01:00:00 PM Scheduled Provider: Location:IR Appointment Type:IR Nephrostomy Exchange Appointment Date:05/18/2025 11:20:00 AM Scheduled Provider: Location:[facility] Appointment Type:SO OV Follow Up Future Scheduled Tests Laboratory* hCG, quantitative (AH/AM Only) 11/15/24 Radiology* IR Nephrostomy Exchange 04/13/25 * IR Nephrostomy Exchange 12/30/24 * CT Renal 03/08/25 * NM Kidney Diuretic 03/08/25 [facility] evaluation + Plan note Future Appointments Appointment Date:04/13/2025 01:00:00 PM Scheduled Provider: Location:IR Appointment Type:IR Nephrostomy Exchange Appointment Date:05/18/2025 11:20:00 AM Scheduled Provider: Location:[facility] Appointment Type:SO OV Follow Up Future Scheduled Tests Laboratory* hCG, quantitative (AH/AM Only) 11/15/24 Radiology* IR Nephrostomy Exchange 04/13/25 * IR Nephrostomy Exchange 12/30/24 * CT Renal 03/08/25 * NM Kidney Diuretic 03/08/25 * NM Kidney Diuretic 03/30/25 [facility] evaluation + Plan note Future Appointments Appointment Date:04/12/2025 08:30:00 AM Scheduled Provider: Location:XRAY Appointment Type:NM Kidney Diuretic Appointment Date:04/13/2025 01:00:00 PM Scheduled Provider: Location:IR Appointment Type:IR Nephrostomy Exchange Appointment Date:05/11/2025 11:00:00 AM Scheduled Provider:OLE PACE MD Location:[facility] Appointment Type:PALL OV Follow Up Appointment Date:05/18/2025 11:20:00 AM Scheduled Provider: Location:[facility] Appointment Type:SO OV Follow Up Future Scheduled Tests Laboratory* hCG, quantitative (AH/AM Only) 11/15/24 Radiology* IR Nephrostomy Exchange 04/13/25 * IR Nephrostomy Exchange 12/30/24 * CT Renal 03/08/25 * NM Kidney Diuretic 03/08/25 * NM Kidney Diuretic 04/12/25 [facility] evaluation + Plan note Future Appointments Appointment Date:05/11/2025 11:00:00 AM Scheduled Provider:OLE PACE MD Location:[facility] Appointment Type:PALL OV Follow Up Appointment Date:05/18/2025 11:20:00 AM Scheduled Provider: Location:[facility] Appointment Type:SO OV Follow Up Future Scheduled Tests Laboratory* hCG, quantitative (AH/AM Only) 11/15/24 Radiology* IR Nephrostomy Exchange 12/30/24 * CT Renal 03/08/25 * NM Kidney Diuretic 03/08/25 * NM Kidney Diuretic 04/12/25 [facility] evaluation + Plan note Future Appointments Appointment Date:05/11/2025 11:00:00 AM Scheduled Provider:OLE PACE MD Location:[facility] Appointment Type:PALL OV Follow Up Appointment Date:05/18/2025 11:20:00 AM Scheduled Provider: Location:[facility] Appointment Type:SO OV Follow Up Appointment Date:05/19/2025 01:00:00 PM Scheduled Provider: Location:IR Appointment Type:IR Nephrostomy Exchange Future Scheduled Tests Laboratory* hCG, quantitative (AH/AM Only) 11/15/24 Radiology* IR Nephrostomy Exchange 05/19/25 * IR Nephrostomy Exchange 12/30/24 * CT Renal 03/08/25 * NM Kidney Diuretic 03/08/25 * NM Kidney Diuretic 04/12/25 [facility] Evaluation + Plan note Future Appointments Appointment Date:06/08/2025 11:30:00 AM Scheduled Provider:OLE PACE MD Location:[facility] Appointment Type:PALL OV Follow Up Appointment Date:06/29/2025 08:00:00 AM Scheduled Provider: Location:IR Appointment Type:IR Nephrostomy Exchange Future Scheduled Tests Laboratory* hCG, quantitative (AH/AM Only) 11/15/24 Radiology* IR Nephrostomy Exchange 06/29/25 * IR Nephrostomy Exchange 12/30/24 * CT Renal 03/08/25 * NM Kidney Diuretic 03/08/25 * NM Kidney Diuretic 04/12/25 [facility] Evaluation note* Respiratory/Thorax: Patent airways, CTAB, normal [...] senses, motor, response and reflexes, normal strength [facility] information available [place] Work Phone: Hospital course Narrative No data available for this section [facility] Hospital Discharge instructions No data available for this section [facility] Hospital Discharge instructionsAdditional Instructions Your urine does have some subtle signs of infection versus chronic colonization from the nephrostomy tube. Out of abundance of caution we will put you on antibiotics for this. A culture was sent. Your lab work otherwise normal. I do not think you have malpositioning of your nephrostomy tube. Please continue to follow-up outpatient with your urologist through [facility]. Follow-up with your main doctor for discussion of further pain management.[place] Work Phone: Progress note No data available for this section [facility] Reason for referral (narrative)No reason for referral [facility]: Summary note* Cierra Adamson N: PERFORM Event Display: Patient Summary Documents Authored Date: [id number] [facility] Summary Purpose Family History No Family History [...] Do you have a Healthcare Power of Landscaping Manager? No April 09, 2025 12:20am Advance Directive Response Recorded Date/ Time Do you have a Healthcare Power of Landscaping Manager? No June 02, 2025 12:13am Do you have a Healthcare Power of Landscaping Manager? No April 09, 2025 12:20am Chief Complaint and Reason for Visit Chief Complaint Admit Date KIDNEY STONES April 09, 2025 12:20 am Chief Complaint Admit Date KIDNEY STONES April 09, 2025 12:20 am PAIN June 01, 2025 11:5 4pm Additional Source Comments INFORMATION SOURCE (unrecogn ized section and content) DATE CREATED AUTHOR 05/23/2020 [facility] DATE CREATED AUTHOR AUTHOR'S ORGANIZ ATION 10/25/2020 [facility] DATE CREATED AUTHOR AUTHOR'S ORGANIZ ATION 08/11/2021 [facility] DATE CREATED AUTHOR AUTHOR'S ORGANIZ ATION 08/29/2021 [facility] DATE CREATED AUTHOR AUTHOR'S ORGANIZ ATION 06/25/2024 [facility] ([place]) DATE CREATED AUTHOR AUTHOR'S ORGANIZ ATION 04/18/2025 [facility] DATE CREATED AUTHOR AUTHOR'S ORGANIZ ATION 05/21/2025 [facility] DATE CREATED AUTHOR AUTHOR'S ORGANIZ ATION 05/31/2025 [facility] DATE CREATED AUTHOR AUTHOR'S ORGANIZ ATION 06/02/2025 [facility] <item> Privacy Markings (unrecogniz ed section and [...] April 09, 2025 End: April 09, 2025 OLE PACE Primary Care Provider Active Star t: April 09, 2025 End: April 09, 2025 Exhibit Designer Relationship Specialty Start Date End Date Ben oFnseca MD [address] [place] [address] [address] [place] [address] Surgeon Urology 05/17/25 Team Status: Active Member Role/Relationship Status Dates OLE PACE Primary Care Provider Active Team Status: Inactive Member Role/Relationship Status Dates Dr. Jatin Garcia MD Attending Provider Active Start: April 09, 2025 End: April 09, 2025 Dr. Jatin Garcia MD Emergency Provider Active Start: April 09, 2025 End: April 09, 2025 SANJEEV HANDY Primary Care Provider Active Star t: April 09, 2025 End: April 09, 2025 Team Status: Inactive Member Role/Relationship Status Dates OLESANJEEV Primary Care Provider Active Star t: June 01, 2025 End: June 02, 2025 Dr. Maryellen Haile DO Emergency Provider Active Start: June 01, 2025 End: June 02, 2025 Care Team (unrecognized sect ion and content) Care Team Personnel Name: Pari Brice Position: Quality Review Member Role: Coating Supervisor Name: FLIP MARTIN MD Position: P4 Oncology Provider Member Role: Primary Care Physician Address: Address: [address] [place] [address] [address] [place] [address] Name: Maryann Mae RN Position: [facility] Member Role: Palliative Care Team Related Persons Name: HAM GRISSOM Name: JESSICA NAVAS Name: ZANDRA ALCANTARA Name: AUSTIN HADDAD Care Team Personnel Name: Pari Brice Position: Quality Review Member Role: Coating Supervisor Name: FLIP MARTIN MD Position: P4 Oncology Provider Med Service: [facility]IFE-ONC Infusion Therapy Member Role: Primary Care Physician Address: Address: [address] [place] [address] Gynecologic Oncology [place], [place] [address] Name: FLIP MARTIN MD Position: P4 Oncology Provider Med Service: CERTIFIED PROFESSIONAL MIDWIFE-ONC Infusion Therapy Member Role: Primary Care Physician Address: Address: [address] [place] [address] [facility] [facility] Name: Maryann Mae RN Position: [facility] Med Service: Palliative Care Member Role: Palliative Care Team Related Persons Name: HAM GRISSOM Name: JESSICA NAVAS Name: ZANDRA ALCANTARA Name: AUSTIN HADDAD Care Team Personnel Name: Pari Brice Position: Quality Review Member Role: Coating Supervisor Name: FLIP MARTIN MD Position: Oncology Provider Med Service: CERTIFIED PROFESSIONAL MIDWIFE-ONC Infusion Therapy Member Role: Primary Care Physician Address: Address: [address] [place] [address] [facility] On[address] Name: FLIP MARTIN MD Position: Oncology Provider Med Service: CERTIFIED PROFESSIONAL MIDWIFE-ONC Infusion Therapy Member Role: Primary Care Physician Address: Address: [address] [place] [address] [facility] On[address] Name: Maryann Mae RN Position: [facility] Med Service: Palliative Care Member Role: Palliative Care Team Related Persons Name: HAM GRISSOM Name: JESSICA NAVAS Name: ZANDRA ALCANTARA Name: AUSTIN HADDAD Care Team Personnel Name: Pari Brice Position: Quality Review Member Role: Coating Supervisor Name: FLIP MARTIN MD Position: Oncology Provider Member Role: Primary Care Physician Address: Address: [address] [place] [address] [facility] On[address] Name: Maryann Mae RN Position: [facility] Member Role: Palliative Care Team Related Persons Name: HAM GRISSOM Name: JESSICA NAVAS Name: ZANDRA ALCANTARA Name: AUSTIN HADDAD Care Team Personnel Name: FLIP MARTIN MD Position: Oncology Provider Member Role: Primary Care Physician Address: Address: [address] [place] [address] [facility] On[address] Name: Maryann Mae RN Position: [facility] Member Role: Palliative Care Team Related Persons Name: HAM GRISSOM Name: JESSICA NAVAS Name: ZANDRA ALCANTARA Name: AUSTIN HADDAD Care Team Personnel Name: Pari Brice Position: Quality Review Member Role: Coating Supervisor Name: FLIP MARTIN MD Position: P4 Oncology Provider Member Role: Primary Care Physician Address: Address: [address] [place] [address] [facility] On[address] Name: Maryann Mae RN Position: [facility] Member Role: Palliative Care Team Related Persons Name: HAM GRISSOM Name: JESSICA NAVAS Name: ZANDRA ALCANTARA Name: AUSTIN HADDAD Care Team Personnel Name: Pari Brice Position: Quality Review Member Role: Coating Supervisor Name: FLIP MARTIN MD Position: P4 Oncology Provider Member Role: Primary Care Physician Address: Address: [address] [place] [address] [address] On[address] Name: Maryann Mae RN Position: [facility] Member Role: Palliative Care Team Related Persons Name: HAM GRISSOM Name: JESSICA NAVAS Name: ZANDRA ALCANTARA Name: AUSTIN HADDAD Care Team Personnel Name: Pari Brice Position: Quality Review Member Role: Coating Supervisor Name: FLIP MARTIN MD Position: P4 Oncology Provider Member Role: Primary Care Physician Address: Address: [address] [place] [address] [facility] On[address] Name: Maryann Mae RN Position: [facility] Member Role: Palliative Care Team Related Persons Name: HAM GRISSOM Name: JESSICA NAVAS Name: ZANDRA ALCANTARA Name: AUSTIN HADDAD Care Team Personnel Name: Pari Brice Position: Quality Review Member Role: Coating Supervisor Name: FLIP MARTIN MD Position: P4 Oncology Provider Member Role: Primary Care Physician Address: Address: [address] [place] [address] [address] On[address] Name: Maryann Mae RN Position: [facility] Member Role: Palliative Care Team Related [...] BE BASED ON THE PRIMARY CLINICAL RECORDS. [facility] [email or web address] [facility]. provides no warranty or guarantee of the accuracy or completeness of information in this document.
--- NOTE | 2025-06-04 00:48 | CT_ITS ---
PROCEDURE: ABDOMEN/PELVIS W IV CONT ONLY 06/04/2025 REASON FOR EXAM: PAIN TECHNIQUE: ABDOMEN/PELVIS W IV CONT ONLY Coronal and Sagittal reconstruction series were provided. CONTRAST: Isovue 370 VOLUME: 75 mL One or more dose reduction techniques were used (e.g., Automated exposure control, adjustment of the mA and/or kV according to patient size, use of iterative reconstruction technique. RADIATION DOSE SUMMARY: CTDlvol: 6 mGy DLP: 272 mGycm COMPARISON: No FINDINGS: Under aerated lung bases. Normal heart size. Liver is upper limits of normal for size, correlate for medical liver disease. Normal gallbladder, pancreas,, adrenal glands, right kidney. Left renal scarring. Percutaneous nephrostomy tube in good position. Simple left renal cysts. Thickening of the left-sided urothelial lining possible UTI or chronic inflammation. Multiple distal left ureteral stones, series 2 images 106, 116, 119, largest measures 3 mm. Unremarkable bladder. Status post hysterectomy. Small pelvic free fluid. Mild retroperitoneal adenopathy, at the kidney level, likely related to chronic left kidney inflammation. Mild presacral edema. No free air. Nonobstructed bowel. Normal appendix. No acute large bowel findings. Diverticulosis. No acute abdominal wall findings. CT/Abdomen/Pelvis W IV Cont ONLY IMPRESSION: Left renal scarring and percutaneous nephrostomy in good position. Left-sided urinary tract infection versus chronic inflammation of the urothelial lining. Multiple small distal left ureteral sto rubio. Reading Location: [place] [address]
[2025-06-04] MEDS: 0.9% Normal Saline (1000mL) 1,000 ML 999 ML IV (00:58)
[2025-06-04 01:08] LABS: Mucous, Urine 0 SEEN /hpf (<or=2+)
[2025-06-04 01:10] LABS: Hematocrit 35.7 % (37-47); Hemoglobin 12.3 g/dL (12.0-15.0); Immature Granulocytes Count 0.050 X10^3/uL (0.0-0.0); Mean Corp Hgb Conc 34.5 g/dL (32-36); Mean Corpuscular Volume 95.2 fL (81-99); Mean Platelet Vol. 9.0 fl (6.2-12.0); NRBC Flagged by Analyzer 0 % (0-5); Platelet Count 324 K/mm3 (150-450); RBC Distribution Width CV 14.6 % (11.6-14.6); RBC Distribution Width SD 51.7 fl (35.1-43.9); Red Blood Count 3.75 M/mm3 (4.2-5.4); White Blood Count 10.0 K/mm3 (4.4-11.0)
[2025-06-04 01:12] LABS: Color, Urine Straw (Yellow); Glucose, Dipstick Normal (Normal); Ketone-Dipstick Negative (Negative); Leukocyte Esterase-Dipstick 500 /ul (Negative); Nitrite-Dipstick Positive (Negative); Occult Blood-Urine 150 /ul (Negative); Protein-Dipstick 100 mg/dl (Negative); Specific Gravity, Urine 1.010 (1.002-1.030); Urine Bilirubin Dipstick Negative (Negative)
[2025-06-04 01:27] VITALS: BP 110/71; PULSE 66; RESP 18; O2SAT 100
[2025-06-04 01:42] LABS: Red Blood Cells-Urine 25-50 SEEN /hpf (0-5); Squamous Epithelial Cells - UA 0-5 SEEN /hpf (5-10); Transitional Epithelial - Ur 5-10 SEEN /hpf (0-5)
[2025-06-04 01:52] LABS: Lipase 15 U/L (13-75)
[2025-06-04 02:02] LABS: AST(SGOT) 14 U/L (<=31); Alanine Aminotransfer ALT/SGPT 8 U/L (<=34); Albumin, Serum 4.0 g/dL (3.5-5.0); Alkaline Phosphatase 65 U/L (35-104); Anion Gap 11 (5-15); BUN 14 mg/dL (4-19); BUN/Creat Ratio 15.5 RATIO (10-20); Calcium,Total 9.1 mg/dL (7.6-11.0); Carbon Dioxide 23.2 mmol/L (21.0-32.0); Chloride 103 mmol/L (98-108); Estimated Creatinine Clearance 69.57 ml/min (50-250); Globulin 2.1 g/dL (2.2-4.2); Glucose 87 mg/dL (70-99); Potassium 3.6 mmol/L (3.3-5.1)
[2025-06-04 03:00] VITALS: BP 131/80; PULSE 76; RESP 18; O2SAT 99
[2025-06-04 04:00] VITALS: BP 137/87; PULSE 65; RESP 18; TEMP 36.6; O2SAT 99
--- NOTE | 2025-06-04 04:30 | EX.ED.DYSGE1 ---
HPI History of Present Illness Chief Complaint: Abd Pain Informant: patient Narrative Narrative: Progressive left side abdominal pain over the last 4 days. Was seen few days ago in the ED. History of cervical cancer in 2020 states metastasized to her left kidney. She required a left nephrostomy tube. She states she is currently in remission. Her nephrostomy tube is draining. No imaging performed at her last visit. She sees [facility] specialist. From urology Dr. Sanders. However states has a new urologist appointment through [facility] this week. This morning vomiting unable to keep things down. She sees palliative care she is on oxycodone 10 mg every 6 hours last dose 6 AM this morning. She is unable keep things down. [facility] Medical History Nephrostomy present Kidney failure Kidney stone Cervical cancer Home Medications ?Medication ?Instructions ?Recorded ?Last Taken ?Type escitalopram oxalate 20 mg tablet 20 mg PO DAILY 04/09/25 Unknown History (Lexapro) lorazepam 1 mg tablet (Ativan) 1 mg PO Q8H PRN anxiety 04/09/25 06/03/25 06:00 History ondansetron HCl 4 mg tablet 4 mg PO Q6H PRN nausea and vomiting 04/09/25 Unknown History oxycodone 5 mg tablet 10 mg PO Q6H PRN pain 04/09/25 06/03/25 06:00 History sulfamethoxazole 800 1 tab PO BID 04/09/25 Unknown History mg-trimethoprim 160 mg tablet (Bactrim DS) cefdinir 300 mg capsule 300 mg PO Q12H #14 caps 06/04/25 Unknown Rx ondansetron 4 mg disintegrating 4 mg PO Q8H PRN PRN Nausea #10 tabs 06/04/25 Unknown Rx tablet Allergy/AdvReac Type Severity Reaction Status Date / Time haloperidol (From Haldol) Allergy Angioedema Verified 06/03/25 23:28 Penicillins (PCN) Allergy Hives Verified 06/03/25 23:28 Social History Smoking Status: Current every day smoker tobacco type: cigarettes and e-cigarettes ROS ROS ED Constitutional Constitutional ED: Reports chills; Denies fever(s) or sweats ENT ENT ED: Denies sore throat Cardiovascular Cardiovascular: Denies chest pain, leg edema, palpitations or racing heartbeat Respiratory/Chest Respiratory/Chest: Denies cough, dyspnea or dyspnea on exertion Gastrointestinal Gastrointestinal: Reports abdominal pain, nausea and vomiting; Denies diarrhea Genitourinary Genitourinary ED: Denies dysuria, hematuria or urinary frequency Musculoskeletal Musculoskeletal: Reports back pain; Denies extremity pain or neck pain Integumentary Denies rash or wounds Neurologic Neurologic: Denies headache(s), paresthesias or weakness EXAM Physical Exam Const Vital Signs: 06/03/25 23:28 06/04/25 01:27 06/04/25 03:00 Temperature 98 F Temperature Source Oral Pulse Rate 90 66 76 Respiratory Rate 18 18 18 Blood Pressure 143/90 H 110/71 131/80 H Blood Pressure Mean 107 84 97 Pulse Ox 99 100 99 Oxygen Delivery Method Room Air Room Air Room Air 06/04/25 04:00 Temperature 98 F Temperature Source Pulse Rate 65 Respiratory Rate 18 Blood Pressure 137/87 H Blood Pressure Mean 103 Pulse Ox 99 Oxygen Delivery Method Positive well nourished and well developed Constitutional Narrative: Uncomfortable nontoxic. General Appearance ED: well developed HEENT HEENT Narrative: Mild dry mucosal membranes. normocephalic and atraumatic Eyes General Eye ED: Yes normal appearance of both eyes Neck full ROM Chest Wall Chest: Negative for tenderness Resp normal respiratory effort and normal air movement Effort and Inspection: symmetric chest movement; Negative for respiratory distress Cardio regular rate, regular rhythm and no murmurs Peripheral Pulses: pulses 2+ throughout GI normal to inspection, nondistended, normoactive bowel sounds GI Narrative: Mild tenderness left side abdomen no guarding or rebound. Palpation: Negative for guarding or rebound tenderness present Back/Spine Back/Spine Narrative: Left nephrostomy tube with yellow urine. No blood. Extremity normal to inspection General Extremety ED: Negative for edema or tenderness General Extremity: Negative for edema Neuro oriented x3 and no sensory deficits noted Sensorium / Orientation: awake and alert Skin no rashes or lesions noted and no wounds MDM MDM MDM Narrative Medical decision making narrative: Interventions / MDM: Differential diagnosis: Left flank pain, history of metastatic cervical cancer, nephrostomy tube, UTI, kidney stones Diagnosis considered but do not suspect: Bowel obstruction however CT negative. My EKG interpretation: N/A Imaging independently reviewed and interpreted by myself: CT abdomen pelvis IV contrast: Left side urethral lining thickening there is multiple small left distal ureteral stones. No hydro. Nephrostomy tube is intact. External documents reviewed: N/A Test considered but not ordered:N/A ED course: Patient uncomfortable abdominal pain and vomiting. Labs were ordered, reporting history of cancer worsening pain and vomiting. Has a nephrostomy tube that is draining. CT scan abdomen pelvis IV contrast further evaluation. IV established for fluids Zofran morphine ordered. Abdominal labs are normal urine positive for infection culture sent IV Rocephin given. Additional morphine pending CT results. CT results notes multiple ureteral stones she has a nephrostomy tube therefore no hydronephrosis. Pain was much more controlled nausea was controlled. She has distal stones with a UTI. However she does have a nephrostomy tube. She has pain medicines at home she is on empiric Bactrim. I discussed with her for concerns for pain control can tried to admit however may need to transfer as no urology present. Shared decision was made with the patient. She is give additional morphine for pain control she is on oxycodone 10 mg at home. She states she has follow-up with a new urologist through [facility] this week. Patient was orally challenged no difficulties. Pain was controlled. Medications to her pharmacy for pain control. Discussed return precautions with the patient. All questions were answered. Re-evaluation: stable Disposition discussed with patient/family/significant other: Patient Case discussed with consulting clinician: N/A This note was generated with Jiv[employer] dictation software. It may contain incorrect words, spelling, and punctuation that were not noted in checking the note before signing. Lab Data Attestation: I reviewed the patient's lab results. Labs: Laboratory Results - last 24 hr 06/04/25 06/04/25 00:58 00:59 WBC 10.0 RBC 3.75 L Hgb 12.3 Hct 35.7 L MCV 95.2 MCH 32.8 H MCHC 34.5 RDW Std Deviation 51.7 H RDW Coeff of Bereket 14.6 Plt Count 324 MPV 9.0 Immature Gran % (Auto) 0.500 Neut % (Auto) 61.2 Lymph % (Auto) 27.3 [place] % (Auto) 7.7 Eos % (Auto) 2.6 Baso % (Auto) 0.7 Absolute Neuts (auto) 6.1 Absolute Lymphs (auto) 2.73 Nucleated RBC % 0 Sodium 137 Potassium 3.6 Chloride 103 Carbon Dioxide 23.2 Anion Gap 11 BUN 14 Creatinine 0.87 Estim Creat Clear Calc 69.57 Est GFR (MDRD) Non-Af 89 BUN/Creatinine Ratio 15.5 Glucose 87 Calcium 9.1 Total Bilirubin 0.16 AST 14 ALT 8 Alkaline Phosphatase 65 Total Protein 6.1 Albumin 4.0 Globulin 2.1 L Albumin/Globulin Ratio 1.9 Lipase 15 Urine Color Straw Urine Clarity Sl. Cloudy Urine pH 7.0 Ur Specific [place] 1.010 Urine Protein 100 H Urine Glucose (UA) Normal Urine Ketones Negative Urine Occult Blood 150 H Urine Nitrite Positive H Urine Bilirubin Negative Urine Urobilinogen Normal Ur Leukocyte Esterase 500 H Urine RBC 25-50 SEEN Urine WBC >100 SEEN Ur Squamous Epith Cells 0-5 SEEN Ur Transition Epith Cell 5-10 SEEN Urine Bacteria 2+ Urine Mucus 0 SEEN Radiography Diagnostic Testing: Clinical Impression(s) from Imaging Studies Abdomen/Pelvis CT 06/04/25 00:48 IMPRESSION: Left renal scarring and percutaneous nephrostomy in good position. Left-sided urinary tract infection versus chronic inflammation of the urothelial lining. Multiple small distal left ureteral stones. Reading Location: [place] [address] Discharge Plan Triage Chief Complaint: Abd Pain Other Complaint: Flank Pain ED Provider: Yeison Webber Dx/Rx/DC Orders Clinical Impression: Nausea and vomiting, History of insertion of nephrostomy tube, Left flank pain, Kidney stone on left side, UTI (urinary tract infection) Instructions: Urinary Tract Infections in Women, ED Vomiting (Adult), ED Kidney Stone with Pain Prescriptions: New ondansetron 4 mg tablet,disintegrating 4 mg PO Q8H PRN PRN (Reason: Nausea) Qty: 10 0RF cefdinir 300 mg capsule 300 mg PO Q12H Qty: 14 0RF No Action oxycodone 5 mg tablet 10 mg PO Q6H PRN (Reason: pain) lorazepam [Ativan] 1 mg tablet 1 mg PO Q8H PRN (Reason: anxiety) escitalopram oxalate [Lexapro] 20 mg tablet 20 mg PO DAILY ondansetron HCl 4 mg tablet 4 mg PO Q6H PRN (Reason: nausea and vomiting) sulfamethoxazole-trimethoprim [Bactrim DS] 800-160 mg tablet 1 tab PO BID Primary Care Provider: OLE GREEN Referrals: OLE GREEN [Other] Activity Restrictions/Additional Instructions: You have multiple stones distal left ureter. You have a current nephrostomy tube that is in appropriate position. You have a urinary infection status post IV Rocephin. White count normal at 10 your creatinine normal at 0.87. Taking finish antibiotic as prescribed urine culture is pending. Nausea and home pain medicines as needed. Follow-up with your urologist as scheduled this week. If you develop any worsening symptoms not controlled with medications return for reevaluation. Print Language: Zambian Disposition Disposition: Home, Self Care Discharge Date/Time: 06/04/25 04:52
== END 2025-06-04 04:52 | disposition home or self-care (01) ==
PROVIDERS: Emergency Provider Emergency Medicine; Visit Provider Emergency Medicine
DX: R11.2 Nausea with vomiting, unspecified (principal); Z93.6 Other artificial openings of urinary tract status; R10.9 Unspecified abdominal pain; N39.0 Urinary tract infection, site not specified; N20.0 Calculus of kidney; F17.210 Nicotine dependence, cigarettes, uncomplicated; Z85.41 Personal history of malignant neoplasm of cervix uteri
CPT/HCPCS: 74177; 80053; 81001; 83690; 85025; 87077; 87086; 87088; 87186; 96361; 96365; 96375; 96376; 99284; Q9967; A4216; J2405

== ENCOUNTER 2025-06-04 23:53 | Emergency (ER) | payer MEDICARE, SELFPAY ==
[2025-06-04 23:54] VITALS: BP 122/28; PULSE 90; RESP 18; TEMP 37.1; O2SAT 98; BMI 20.2
--- NOTE | 2025-06-05 00:11 | EDS_ITS ---
HPI History of Present Illness Chief Complaint: Flank Pain Informant: patient Narrative Narrative: Presents worsening pain now in her abdomen rating towards her groin. Seen by myself yesterday diagnosed with kidney stone to multiple and left distal ureter. She has chronic nephrostomy tube on the same side 5 years ago history of reported cervical cancer that metastasized to her left kidney. She was in remission. She had infection of the urine from nephrostomy. She was given Rocephin yesterday. Her pain was controlled yesterday along with her nausea. States pain returned at 10 AM with nausea and vomiting. She sees palliative care on oxycodone 10 mg every 6 hours. Her last dose was at 10 AM. She was able to keep her antibiotics down of cefdinir. Denies fever or chills. She is pending a new urologist at [facility] this week she was previously seeing Dr. Sanders at [place]. She has appointment with her palliative doctor tomorrow. She states she was trying to wait it out. Prior similar symptoms: Yes PFSH PFSH Medical History Nephrostomy present Kidney failure Kidney stone Cervical cancer Home Medications ?Medication ?Instructions ?Recorded ?Last Taken ?Type escitalopram oxalate 20 mg tablet 20 mg PO DAILY 04/09 Unknown History (Lexapro) lorazepam 1 mg tablet (Ativan) 1 mg PO Q8H PRN anxiety 04/09/25 06/03/25 06:00 History ondansetron HCl 4 mg tablet 4 mg PO Q6H PRN nausea and vomiting 04/09/25 Unknown History oxycodone 5 mg tablet 10 mg PO Q6H PRN pain 06/03/25 06:00 History sulfamethoxazole 800 1 tab PO BID 04/09/25 Unknow n History mg-trimethoprim 160 mg tablet (Bactrim DS) cefdinir 300 mg capsule 300 mg PO Q12H #14 caps 12/28 Unknown Rx ondansetron 4 mg disintegrating 4 mg PO Q8H PRN PRN Na usea #10 tabs 06/04/25 Unknown Rx tablet Allergy/AdvReac Type Severity Reaction Status Date / Time haloperidol (From Haldol) Allergy Angioedema Verified 06/04/25 23:54 Penicillins (PCN) Allergy Hives Verified 06/04/25 23:54 Social History Smoking Status: Current every day smoker tobacco type: cigarettes and e-c igarettes ROS ROS ED Constitutional Constitutional ED: Denies chills, fever(s) or sweats ENT ENT ED: Denies sore throat Cardiovascular Cardiovascular: Denies chest pain, leg edema, palpitations or racing heartbeat Respiratory/Chest Respiratory/Chest: Denies cough, dyspnea or dyspnea on exertion Gastrointestinal Gastrointestinal: Reports abdominal pain, nausea and vomiting; Denies diarrhea Genitourinary Genitourinary ED: Denies dysuria, hematuria or urinary frequency Musculoskeletal Musculoskeletal: Denies back pain, extremity pain or neck pain Integumentary Denies rash or wounds Neurologic Neurologic: Denies headache(s), paresthesias or weakness EXAM Physical Exam Const Vital Signs: 06/04/25 23:54 06/05/25 01:53 06/05/25 02:12 Temperature 98.8 F 96.9 F L Temperature Source Oral Pulse Rate 90 85 79 Respiratory Rate 18 20 H 18 Blood Pressure 122/28 H 127/88 H 117/79 Blood Pressure Mean 59 101 91 Pulse Ox 98 99 99 Oxygen Delivery Method Room Air Room Air Positive well nourished and well developed Constitutional Narrative: Nontoxic, uncomfortable. General Appearance ED: well developed HEENT Reports moist mucous membranes normocephalic and atraumatic Eyes General Eye ED: Yes normal appearance of both eyes Neck full ROM Chest Wall Chest: Negative for tenderness Resp normal respiratory effort and normal air movement Effort and Inspection: symmetric chest movement; Negative for respiratory distress Cardio regular rate, regular rhythm and no murmurs Peripheral Pulses: pulses 2+ throughout GI normal to inspection, nondistended, normoactive bowel sounds GI Narrative: Mild tenderness left lower quadrant. No guarding or rebound. Palpation: Negative for guarding or rebound tenderness present Back/Spine Back/Spine Narrative: Left nephrostomy tube with yellow urine. Extremity normal to inspection General Extremety ED: Negative for edema or tenderness General Extremity: Negative for edema Neuro oriented x3 and no sensory deficits noted Sensorium / Orientation: awake and alert Skin no rashes or lesions noted and no wounds MDM MDM MDM Narrative Medical decision making narrative: Interventions / MDM: Differential diagnosis: Renal colic, urolithiasis, chronic nephrostomy tube Diagnosis considered but do not suspect: N/A My EKG interpretation: N/A Imaging independently reviewed and interpreted by myself: N/A External documents reviewed: Reviewed CT image from yesterday multiple small left distal ureteral stone largest being 3 mm. Urine culture from yesterday pending results. However seen 06/02 2025 UA negative there was a culture sent noting Pseudomonas resistance to meropenem and Zosyn sensitive to the quinolones. Test considered but not ordered:N/A ED course: Patient diagnosed urolithiasis multiple yesterday. Urine infection. Denies fever or chills. Reports pain radiating to her groin likely migration of stones. IV established will check basic labs will dose morphine Zofran. 0054: Pain down by 1 point per patient. Nausea improved. Itching from the morphine for which Benadryl was given earlier. Labs white count 9.8 not worsening from yesterday. Creatinine normal. Apparently IV infiltrated on her right wrist which was switched over the left side she has swelling, ice was placed to the wrist. Will try IV Dilaudid. Will reevaluate. 0225: Pain much more improved on reevaluation. Not intractable pain at this time. Consider admission or transfer with the patient as this was her return visit. However with her UTI she had no fevers no chills white count is normal normal renal function. Discussed with her we will continue with her current antibiotic if cultures return different we will call her to change. She has appointment with her palliative doctor in 2 days for which she states will give her her urology information at [facility]. She states referred for evaluation for nephrectomy secondary recurrent infections from her nephrostomy. Return precautions. All questions were answered. Re-evaluation: stable Disposition discussed with patient/family/significant other: Patient Case discussed with consulting clinician: N/A This note was generated with zoidu dictation software. It may contain incorrect words, spelling, and punctuation that were not noted in checking the note before signing. Lab Data Attestation: I reviewed the patient's lab results. Labs: Laboratory Results - last 24 hr 06/05/25 00:10 WBC 9.8 RBC 3.43 L Hgb 11.2 L Hct 33.0 L MCV 96.2 MCH 32.7 H MCHC 33.9 RDW Std Deviation 52.6 H RDW Coeff of [place]re[place] 15.0 H Plt Count 309 MPV 8.7 Immature Gran % (Auto) 0.500 Neut % (Auto) 63.1 Lymph % (Auto) 27.1 [place] % (Auto) 6.4 Eos % (Auto) 2.2 Baso % (Auto) 0.7 Absolute Neuts (auto) 6.2 Absolute Lymphs (auto) 2.66 Nucleated RBC % 0 Sodium 137 Potassium 4.3 Chloride 103 Carbon Dioxide 21.5 Anion Gap 12 BUN 10 Creatinine 0.97 Estim Creat Clear Calc 70.00 Est GFR (MDRD) Non-Af 77 BUN/Creatinine Ratio 10.3 Glucose 118 H Calcium 8.8 Discharge Plan Triage Chief Complaint: Flank Pain ED Provider: Yeison Webber Dx/Rx/DC Orders Clinical Impression: Renal colic on left side, Kidney stone on left side Instructions: ED Kidney Stone with Pain Prescriptions: No Action ondansetron 4 mg tablet,disintegrating 4 mg PO Q8H PRN PRN (Reason: Nausea) Qty: 10 0RF cefdinir 300 mg capsule 300 mg PO Q12H Qty: 14 0RF oxycodone 5 mg tablet 10 mg PO Q6H PRN (Reason: pain) lorazepam [Ativan] 1 mg tablet 1 mg PO Q8H PRN (Reason: anxiety) escitalopram oxalate [Lexapro] 20 mg tablet 20 mg PO DAILY ondansetron HCl 4 mg tablet 4 mg PO Q6H PRN (Reason: nausea and vomiting) sulfamethoxazole-trimethoprim [Bactrim DS] 800-160 mg tablet 1 tab PO BID Primary Care Provider: OLE GREEN Referrals: [facility] Doctor,Out of [Non-Staff] - Activity Restrictions/Additional Instructions: Continue your antibiotic. Continue home pain medicine and nausea medicine as needed. As noted multiple small kidney stones with a left side near bladder. Follow-up with your urologist. Print Language: Guamanian Disposition Disposition: Home, Self Care Discharge Date/Time: 06/05/25 02:13
[2025-06-05 00:14] LABS: Hematocrit 33.0 % (37-47); Hemoglobin 11.2 g/dL (12.0-15.0); Immature Granulocytes Count 0.050 X10^3/uL (0.0-0.0); Mean Corp Hgb Conc 33.9 g/dL (32-36); Mean Corpuscular Volume 96.2 fL (81-99); Mean Platelet Vol. 8.7 fl (6.2-12.0); NRBC Flagged by Analyzer 0 % (0-5); Platelet Count 309 K/mm3 (150-450); RBC Distribution Width CV 15.0 % (11.6-14.6); RBC Distribution Width SD 52.6 fl (35.1-43.9); Red Blood Count 3.43 M/mm3 (4.2-5.4); White Blood Count 9.8 K/mm3 (4.4-11.0)
[2025-06-05] MEDS: 0.9% Normal Saline (1000mL) 1,000 ML 999 ML IV (00:15)
[2025-06-05 00:34] LABS: Anion Gap 12 (5-15); BUN 10 mg/dL (4-19); BUN/Creat Ratio 10.3 RATIO (10-20); Calcium,Total 8.8 mg/dL (7.6-11.0); Carbon Dioxide 21.5 mmol/L (21.0-32.0); Chloride 103 mmol/L (98-108); Estimated Creatinine Clearance 70.00 ml/min (50-250); Glucose 118 mg/dL (70-99); Potassium 4.3 mmol/L (3.3-5.1)
--- OUTSIDE RECORDS SUMMARY | 2025-06-05 00:36 | XMS RPT_ITS | CCD ---
Author Organization [facility] Care Team Providers Care Senior Network Engineer Name Role Phone Flip Martin Unavailable Unavailable [...] Consulting Unavailable PHYSICIAN, NONE Primary Care Unavailable ROYN OMER, BRITTNI Attending Unavailalice ROSARIO MD, DALY Consulting Unavailable VARUN LORA, FLIP Attending Unavailable VARUN LORA, FLIP Admitting Unavailable [...] Emergency Provider OLE PACE Primary Care Provider Ben Fonseca MD Unavailable Dr. Jatin Garcia MD Attending Provider Dr. Maryellen Haile DO Emergency Provider GONZALEZ CARTER DO Admitting Unavailable DIDGONZALEZ ORTIZ DO Primary Care Unavailable DIDGONZALEZ ORTIZ DO Attending Unavailable RADHA, GUCCI E Admitting Unavailable RADHA, GUCCI E Primary Care Unavailable RADHA, GUCCI E Attending Unavailable ALICIA RODRIGUEZ MD Admitting Unavailable ALICIA RODRIGUEZ MD Primary Care Unavailable ALICIA RODRIGUEZ MD Attending Unavailable DIDGONZALEZ ORTIZ DO Admitting Unavailable GONZALEZ CARTER DO Primary Care Unavailable DIDGONZALEZ ORTIZ DO Attending Unavailable CSERNYIKCHRISTO DO Attending Unavailable CSERNYIK, CHRISTO GUDINO Admitting Unavailable CSERNYIK, CHRISTO DO Primary Care Unavailable KORINA AGUILAR MD Attending Unavailable KORINA AGUILAR MD Admitting Unavailable KORINA AGUILAR MD Primary Care Unavailable GONZALEZ CARTER DO Primary Care Unavailable GONZALEZ CARTER DO Attending Unavailable GONZALEZ CARTER DO Admitting Unavailable DIDGONZALEZ ORTIZ DO Admitting Unavailable GONZALEZ CARTER DO Primary Care Unavailable GONZALEZ CARTER DO Attending Unavailable GONZALEZ CARTER DO Admitting Unavailable GONZALEZ CARTER DO Primary Care Unavailable GONZALEZ CARTER DO Attending Unavailable RADHA, GUCCI E Primary Care Unavailable RADHA, GUCCI E Attending Unavailable RADHA, GUCCI E Admitting Unavailable GONZALEZ CARTER DO Admitting Unavailable GONZALEZ CARTER DO Primary Care Unavailable GONZALEZ CARTER DO Attending Unavailable BEATRICE QUEZADA DO Attending Unavailable BEATRICE QUEZADA DO Admitting Unavailable BEATRICE QUEZADA DO Primary Care Unavailable RADHA, GUCCI E Admitting Unavailable RADHA, GUCCI E Primary Care Unavailable RADHA, GUCCI E Attending Unavailable RADHA, GUCCI E Attending Unavailable RADHA, GUCCI E Admitting Unavailable RADHA, GUCCI E Primary Care Unavailable GABBY MANDEL DO Attending Unavailable GABBY MANDEL DO Admitting Unavailable GABBY MANDEL DO Primary Care Unavailable GONZALEZ CARTER DO Primary Care Unavailable DIDGONZALEZ ORTIZ DO Attending Unavailable GONZALEZ CARTER DO Admitting Unavailable FLIP MARTIN MD Attending Unavailable FLIP MARTIN MD Admitting Unavailable FLIP MARTIN MD Primary Care Unavailable FLIP MARTIN MD Consulting Unavailable PROVIDER, UNKNOWN Consulting Unavailable AL, NEMR BADIE Attending Unavailable AL, NEMR BADIE Admitting Unavailable AL, NEMR BADIE Primary Care Unavailable GONZALEZ CARTER DO Admitting Unavailable GONZALEZ CARTER DO Primary Care Unavailable GONZALEZ CARTER DO Attending Unavailable ALICIA RODRIGUEZ MD Attending Unavailable ALICIA RODRIGUEZ MD Admitting Unavailable ALICIA RODRIGUEZ MD Primary Care Unavailable GONZALEZ CARTER DO Primary Care Unavailable GONZALEZ CARTER DO Attending Unavailable GONZALEZ CARTER DO Admitting Unavailable DR OLI HERRERA MD Admitting Unavailable SKY HARRIS Attending Unavailable SANJEEV LORA, OLE A Primary Care Unavailable OLE PACE MD Attending Unavailable SANJEEV LORA, OLE A Primary Care Unavailable SANJEEV LORA, OLE Jenkins Attending Unavailable SANJEEV LORA, OLE A Primary Care Unavailable SANJEEV LORA, OLE A Primary Care Unavailable OLE PACE MD Attending Unavailable GONZALEZ SANDERS MD Attending Unavailable SANJEEV LORA, OLE A Primary Care Unavailable OLE PACE MD Attending Unavailable SANJEEV LORA, OLE Jenkins Primary Care Unavailable NAYELI BRICE DO Consulting Unavailcydney PACE MD, OLE Jenkins Primary Care Unavailable NASRIN ISABEL MD Attending Unavailable GARTH GOSS MD Consulting Unavailable OLE PACE MD A Primary Care Unavailable OLE PACE MD Attending Unavailable OLE PACE MD Attending Unavailable SANJEEV LORA, OLE A Primary Care Unavailable NASRIN ISABEL MD Attending Unavailable OLE PACE MD A Primary Care Unavailable OLE PACE MD Primary Care Unavailable JENNI LORA, DR JURADO Admitting Unavailab GUCCI Mcelroy DO Attending Unavailable CLOTILDE RANDHAWA DO Consulting Unavailable OLE PANTOJA MD, I Consulting Unavailable GONZALEZ SANDERS MD Consulting Unavailable BHUPENDRA GALVEZ DO Admitting Unavailable OLE PACE MD Primary Care Unavailable FRED CARBAJAL MD Attending Unavailable DR RHIANNON ARTEAGA MD Admitting Unavailab SANTINO Davenport MD Consulting Unavailable HENRY GUDINO, DR SEGAL Attending Unavailable OLE PACE MD Primary Care Unavailable GONZALEZ SANDERS MD Consulting Unavailable OLE PACE MD Consulting Unavailable OLE PACE MD Attending Unavailable OLE PACE MD Primary Care Unavailable NASRIN ISABEL MD Attending Unavailable OLE PACE MD Primary Care Unavailable OLE PACE MD Primary Care Unavailable LEONARDO NULL Attending Unavaila OLE Wong MD Primary Care Unavailable CLOTILDE RANDHAWA DO Attending Unavailable GONZALEZ SANDERS MD Attending Unavailable OLE PACE MD Primary Care Unavailable AVILA OMER, PINA Jenkins Attending Unavail able OLE PACE MD Primary Care Unavailable MARKUS LORA, DR CORREA Attending Unavailable OLE PACE MD Primary Care Unavailable TADEO LEIJA PA-C Attending Unavailcydney PACE MD, OLE A Primary Care Unavailable VON BACA MD Attending Unavaila CLOTILDE Vasquez DO Consulting Unavailable SANJEEV LORA, OLE A Primary Care Unavailable MARIN COTE MD Consulting Unavailable AVILA CATHOLIC PRIEST-ELECTRIC MOTOR TESTER, PINA Jenkins Attending Unavail able SANJEEV LORA, OLE A Primary Care Unavailable OLE MONK MD Consulting Unavailable AVILA CATHOLIC PRIEST-ELECTRIC MOTOR TESTER, PINA Jenkins Attending Unavail able SANJEEV LORA, OLE A Primary Care Unavailable SANJEEV LORA, OLE A Primary Care Unavailable CLOTILDE RANDHAWA DO Consulting Unavailable MAAME LORA, NASRIN Attending Unavailable SANJEEV LORA, OLE A Primary Care Unavailable MAAME LORA, NASRIN Attending Unavailable SANJEEV LORA, OLE A Primary Care Unavailable AVILA ALLENN-ELECTRIC MOTOR TESTER, PINA A Attending Unavail able MATHEW LORA, GONZALEZ Patterson Attending Unavailable SANJEEV LORA, OLE A Primary Care Unavailable SANJEEV LORA, OLE A Primary Care Unavailable CYNTHIA GUDINO, DR ARLEY Germain Attending Unavailable GUCCI ALEXANDRE Attending Unavailable AVILA LORA, OLE Smith Consulting Unavailable SANJEEV LORA, OLE A Primary Care Unavailable DELMAR MICHAEL DO Attending Unavailable SANJEEV LORA, OLE A Primary Care Unavailable SANJEEV LORA, OLE A Primary Care Unavailable GUCCI ALEXANDRE Attending Unavailable SANJEEV LORA, OLE A Primary Care Unavailable JASKARAN MEDRANO MD Attending Unavailable Jatin Garcia Attending Unavailable BEVERLY, QUIRINO Primary Care Unavailable Maryellen Haile Attending Unavailable BEVERLY, QUIRINO Primary Care Unavailable Yeison Webber Attending Unavailable QUIRINO PAUL Primary Care Unavailable Dr. Yeison Webber DO Emergency Provider Allergies Allergy Classification Reported Allergen(s) Allergy Type Date of Onset Reaction(s) Facility Haloperidol (1 source) Haloperidol; Translations: [haloperidol] Drug Allergy Tongue swelling (finding) [facility] Penicillins (antibiotic) (1 source) Penicillin; Translations: [penicillins] Drug Allergy Weal (disorder) [facility] (10 sources) Codeine; Translations: [codeine] Drug Allergy [facility] (1 source) oxyCODONE; Translations: [oxycodone] Drug Allergy Vomitting, Nausea [facility] (20 sources) Penicillin; Translations: [penicillins] Drug Allergy Weal (disorder) [facility] (20 sources) [place] - fruit Food allergy Tongue swelling (finding), Difficulty breathing (finding) [facility] (20 sources) Haloperidol; Translations: [haloperidol] Drug Allergy 5 Tongue swelling (finding) [facility] (3 sources) Penicillins Allergy to substance 5 [facility] (1 source) Haloperidol Drug Allergy [facility] (1 source) Penicillins Drug allergy (disorder) [facility] (1 source) Haloperidol Drug Allergy 5 [facility] (1 source) Penicillins Drug allergy (disorder) 5 [facility] Medications Current Medications Medication Drug Class(es) [...] tab(s), 1 Refill(s), 08/30/22 13:02:00 EDT, Pharmacy: [facility], 167.6, cm, 08/08/22 16:51:00 [...] day(s), # 120 tab(s), 0 Refill(s), Pharmacy: [facility], Cervical cancer, 167.6, cm, 01/01/23 16:31:00 EST, Height, 47.7, kg, 01/01/23 16:31:00 EST, Dosing Weight Start Date: 01/21/23 Stop Date: 02/20/23 Status: Ordered Start: 12-19-2022 End: 01-18-2023 take 1 tablet by mouth every six hours acetaminophen-oxyCODONE 325 mg-5 mg oral tablet Dose = 1 tab(s), Oral, q6hr, X 30 day(s), # 120 tab(s), 0 Refill(s), Pharmacy: [facility], Cervical cancer, 167.6, cm, 11/15/22 9:52:00 EST, Height, 50, kg, 11/15/22 9:52:00 EST, Dosing Weight Start Date: 12/19/22 Stop Date: 01/18/23 Status: Ordered Start: 10-21-2022 End: 11-20-2022 take 1 tablet by mouth every six hours acetaminophen-oxyCODONE 325 mg-5 mg oral tablet Dose = 1 tab(s), Oral, q6hr, X 30 day(s), # 120 tab(s), 0 Refill(s), Pharmacy: [facility], Cervical cancer, 167.6, cm, 09/30/22 17:45:00 EST, Height, 50.4, kg, 09/30/22 17:45:00 EST, Dosing Weight Start Date: 10/21/22 Stop Date: 11/20/22 Status: Ordered Start: 09-18-2022 End: 10-18-2022 take 1 tablet by mouth every six hours acetaminophen-oxyCODONE 325 mg-5 mg oral tablet Dose = 1 tab(s), Oral, q6hr, X 30 day(s), # 120 tab(s), 0 Refill(s), Pharmacy: [facility], Cervical cancer, 167.6, cm, 08/08/22 16:51:00 EDT, Height, 52.5, kg, 08/08/22 16:51:00 EDT, Dosing Weight Start Date: 09/18/22 Stop Date: 10/18/22 Status: Ordered Start: 07-22-2022 End: 08-21-2022 take 1 tablet by mouth every six hours acetaminophen-oxyCODONE 325 mg-5 mg oral tablet Dose = 1 tab(s), Oral, q6hr, X 30 day(s), # 120 tab(s), 0 Refill(s), Pharmacy: [facility], Cervical cancer, 167.6, cm, 07/04/22 10:37:00 EDT, Height, 45.4 Start Date: 07/22/22 Stop Date: 08/21/22 Status: Ordered Start: 06-19-2022 End: 07-19-2022 take 1 tablet by mouth every six hours as needed for pain acetaminophen-oxyCODONE 325 mg-5 mg oral tablet Dose = 1 tab(s), Oral, q6hr, PRN for pain, X 30 day(s), # 120 tab(s), 0 Refill(s), Pharmacy: [facility], Cervical ca Cancer related [...] day(s), # 120 tab(s), 0 Refill(s), Pharmacy: [facility], Cervical ca Cancer related [...] day(s), # 120 tab(s), 0 Refill(s), Pharmacy: [facility], Cervical ca, 167.6, cm, [...] day(s), # 120 tab(s), 0 Refill(s), Pharmacy: [facility], Cervical ca, 167.6, cm, [...] day(s), # 180 tab(s), 0 Refill(s), Pharmacy: [facility], Cervical cancer, 167.6, cm, [...] BID, # 60 tab(s), 1 Refill(s), Pharmacy: [facility], 167.6, cm, 05/22/21 17:26:00 [...] food, # 120 EA, 0 Refill(s), Pharmacy: [facility], 167.6, cm, 05/15/23 15:33:00 EDT, Height Start Date: 05/15/23 Status: Ordered cefdinir 300 mg oral capsule (1 source) Cephalosporin Antibacterial Start: 06-04-2025 take 1 capsule by mouth every twelve hours Cefdinir 300 mg capsule Active 300 mg PO Q12H 14 June 04, 2025 12:00am ciprofloxacin 500 mg oral tablet (3 sources) Quinolone Antimicrobial Start: 05-07-2023 End: 05-17-2023 ciprofloxacin 500 mg oral tablet Dose : 500 mg = 1 tab(s), Oral, q12h, X 10 day(s), # 20 tab(s), 0 Refill(s), 05/17/23 6:33:00 EDT, Pharmacy: [facility], 167, cm, 04/28/23 13:10:00 EDT, Height, 63.9 Start Date: 05/07/23 Stop Date: 05/17/23 Status: Ordered Start: 01-06-2023 End: 01-10-2023 ciprofloxacin 500 mg oral ta blet Dose : 500 mg = 1 tab(s), Oral, q12h, X 4 day(s), # 9 tab(s), 0 Refill(s), 01/10/23 14:45:00 EST, Pharmacy: [facility], 167.6, cm, 01/01/23 16:31:00 EST, Height, 47.7 Start Date: 01/06/23 Stop Date: 01/10/23 Status: Ordered cyclobenzaprine hydrochloride 5 mg oral tablet (1 source) Muscle Relaxant Start: 08-16-2022 End: 08-26-2022 cyclobenzaprine 5 mg oral tablet Dose : 5 mg = 1 tab(s), Oral, TID, PRN Muscle spasm, X 10 day(s), # 30 tab(s), 0 Refill(s), 08/26/22 13:05:00 EDT, Pharmacy: [facility], 167.6, cm, 08/08/22 16:51:00 EDT, Height Start Date: 08/16/22 Stop Date: 08/26/22 Status: Ordered DAPTOmycin 500 mg injection (2 sources) Lipopeptide Antibacterial Start: 05-07-2023 End: 05-17-2023 inject 1 dose intravenously every twenty-four hours DAPTOmycin 500 mg intravenous injection Dose : 383.4 mg =, Intravenous, q24h, X 10 day(s), # 10 EA, 0 Refill(s), 05/17/23 6:32:00 EDT, Pharmacy: [facility], 167, cm, 04/28/23 13:10:00 EDT, Height, 63.9 Start Date: 05/07/23 Stop Date: 05/17/23 Status: Ordered docusate sodium 100 mg oral capsule (4 sources) Start: 10-08-2022 Colace 100 mg oral capsule Dose : 100 mg = 1 cap(s), Oral, BID, PRN as needed for constipation, # 60 cap(s), 2 Refill(s), Pharmacy: [facility], 167.6, cm, 09/30/22 17:45:00 EST, Height, kg, 09/30/22 17:45:00 EST, Dosing Weight Start Date: 10/08/22 Status: Ordered dronabinol 2.5 mg oral capsule (1 source) Cannabinoid Start: 10-08-2022 End: 10-29-2022 Marinol 2.5 mg oral capsule Dose : 2.5 mg = 1 cap(s), Oral, BID, X 21 day(s), # 42 cap(s), 0 Refill(s), 10/29/22 14:33:00 EST, Pharmacy: [facility], Cervical cancer Decreased appetite, 167.6, [...] qDay, # 30 tab(s), 5 Refill(s), Pharmacy: [facility] 167.6, cm, 06/09/24 6:47:00 EDT, Height, kg, 06/09/24 6:47:00 EDT, Dosing Weight Start Date: 06/17/24 Status: Ordered Start: 03-16-2024 Lexapro 20 mg oral tablet Dose : 20 mg = 1 tab(s), Oral, qDay, # 30 tab(s), 2 Refill(s), Pharmacy: [facility] 167.6, cm, 03/04/24 9:28:00 EDT, Height, kg, 03/04/24 9:28:00 EDT, Dosing Weight Start Date: 03/16/24 Status: Ordered Start: 01-06-2024 Lexapro 10 mg oral tablet Dose : 10 mg = 1 tab(s), Oral, qDay, # 30 tab(s), 1 Refill(s), Pharmacy: [facility], 167.6, cm, 01/06/24 10:18:00 EST, Height, kg, 01/06/24 10:18:00 EST, Dosing Weight Start Date: 01/06/24 Status: Ordered Start: 12-08-2023 Lexapro 10 mg oral tablet Dose : 10 mg = 1 tab(s), Oral, qDay, # 30 tab(s), 1 Refill(s), Pharmacy: [facility], 167.6, cm, 12/08/23 14:57:00 EST, Height, kg, 12/08/23 14:57:00 EST, Dosing Weight Start Date: 12/08/23 Status: Ordered Start: 09-12-2023 escitalopram 1 0 mg oral tablet Dose : 10 mg = 1 tab(s), Oral, qDay, # 30 tab(s), 1 Refill(s), Pharmacy: [facility] 167.6, cm, 09/03/23 13:59:00 EDT, Height, kg, 09/03/23 13:59:00 EDT, Dosing Weight Start Date: 09/12/23 Status: Ordered estrogens, conjugated (half-way) 0.625 mg / medroxyPROGESTERone acetate 2.5 mg oral tablet (2 sources) Progestin, Estrogen Start: 02-21-2022 take 1 tablet by mouth once daily Prempro 0.625 mg-2.5 mg oral tablet Dose = 1 tab(s), Oral, qDay, # 90 tab(s), 2 Refill(s), Pharmacy: [facility], 167.6, cm, 02/21/22 15:19:00 EDT, Height Start Date: 02/21/22 Status: Ordered HYDROmorphone hydrochloride 2 mg oral tablet (2 sources) Opioid Agonist Start: 08-16-2022 End: 08-21-2022 Dilaudid 2 mg oral tablet Dose : 2 mg = 1 tab(s), Oral, q4h, PRN as needed for pain, X 5 day(s), # 28 tab(s), 0 Refill(s), 08/21/22 13:06:00 EDT, Pharmacy: [facility], Cancer related pain History of radiation therapy, 167.6, cm, 08/08/22 16:51:00 EDT, Height, 52.5 Start Date: 08/16/22 Stop Date: 08/21/22 Status: Ordered Start: 04-19-2022 End: 04-26-2022 Dilaudid 2 mg oral tablet Do se : 1 mg = 0.5 tab(s), Oral, q4h, PRN as needed for pain, # 28 tab(s), 0 Refill(s), Pharmacy: [facility], Cervical cancer Cancer related [...] hours, # 30 patch(es), 0 Refill(s), Pharmacy: [facility], 167.6, cm, 08/08/22 16:51:00 [...] anxiety, # 60 tab(s), 1 Refill(s), [facility] Palliative care patient THO (generalized anxiety disorder), 167.6, cm, 06/21/24 11:41:00 EDT, Height, 62.2, kg, 06/21/24 11:41:00 EDT, Dosing Weight Start Date: 07/15/24 Stop Date: 09/13/24 Status: Ordered Start: 05-14-2024 End: 07-13-2024 Ativan 1 mg oral tablet Dose : 1 mg = 1 tab(s), Oral, BID, PRN as needed for anxiety, # 60 tab(s), 1 Refill(s), [facility] Palliative care patient THO (generalized anxiety disorder), 167.6, cm, 04/28/24 11:26:00 EDT, Height, 62.5, kg, 04/28/24 11:26:00 EDT, Dosing Weight Start Date: 05/14/24 Stop Date: 07/13/24 Status: Ordered Start: 01-06-2024 End: 04-18-2024 Ativan 1 mg oral tablet Dose : 1 mg = 1 tab(s), Oral, BID, PRN as needed for anxiety, # 60 tab(s), 0 Refill(s), Pharmacy: [facility], Palliative care patient THO (generalized anxiety disorder), 167.6, cm, 03/04/24 9:28:00 EDT, Height, 60, kg, 03/04/24 9:28:00 EDT, Dosing Weight Start Date: 03/19/24 Stop Date: 04/18/24 Status: Ordered Start: 11-19-2023 LORazepam 1 mg oral tablet Dose : 1 mg = 1 tab(s), Oral, BID, # 60 tab(s), 0 Refill(s), Pharmacy: [facility] Cancer related pain History of cervical cancer, 167.6, cm, 11/19/23 9:33:00 EST, Height, 61.3, kg, 11/19/23 9:33:00 EST, Dosing Weight Start Date: 11/19/23 Status: Ordered Start: 10-20-2023 LORazepam 1 mg oral tablet Dose : 1 mg = 1 tab(s), Oral, BID, # 60 tab(s), 0 Refill(s), Pharmacy: [facility] Cancer related pain History of cervical cancer, 167.6, cm, 09/03/23 13:59:00 EDT, Height, 63.6, kg, 09/03/23 13:59:00 EDT, Dosing Weight Start Date: 10/20/23 Status: Ordered Start: 08-21-2023 LORazepam 1 mg oral tablet Dose : 1 mg = 1 tab(s), Oral, BID, # 60 tab(s), 1 Refill(s), Pharmacy: [facility] Cancer related pain History of cervical cancer, [...] 0 Refill(s), 07/25/23 1:35:00 PM EDT, Pharmacy: [facility] Anxiety Cervical ca, 167.6, cm, 07/09/23 7:02:00 EDT, Height, 62.8, kg, 07/09/23 7:02:00 EDT, Dosing Weight Start Date: 07/16/23 Stop Date: 07/25/23 Status: Ordered Start: 09-24-2021 End: 03-14-2023 Ativan 1 mg oral tablet Dose : 1 mg = 1 tab(s), Oral, TID, PRN PRN as needed for anxiety, X 30 day(s), # 90 tab(s), 0 Refill(s), 03/14/23 9:57:00 EDT, Pharmacy: [facility], Cervical cancer Anxiety, 167.6, cm, 01/01/23 16:31:00 EST, Height, 47.7, kg, 01/01/23 16:... Start Date: 02/12/23 Stop Date: 03/14/23 Status: Ordered Start: 06-22-2021 End: 09-20-2021 Ativan 1 mg oral tablet Dose : 1 mg = 1 tab(s), Oral, TID, X 30 day(s), # 90 tab(s), 2 Refill(s), 09/20/21 15:11:00 EST, Pharmacy: [facility], Cervical cancer, 167.6, cm, 05/22/21 17:26:00 EDT, Height, 45.4, kg, 05/22/21 17:26:00 EDT, Dosing Weight Start Date: 06/22/21 Stop Date: 09/20/21 Status: Ordered megestrol 40 mg/mL oral suspension (1 source) Start: 05-17-2021 take 1 dose by mouth once daily megestrol 40 mg/mL oral suspension Dose : 800 mg = 20 mL, Oral, Daily, # 600 mL, 2 Refill(s), Pharmacy: [facility], 167.6, cm, 05/17/21 14:03:00 EDT, Height, kg, 05/17/21 14:03:00 EDT, Dosing Weight Start Date: 05/17/21 Status: Ordered metoclopramide 5 mg oral tablet (3 sources) Dopamine-2 Receptor Antagonist Start: 03-05-2024 metoclopramide 5 mg oral tablet 0 Refill(s) Start Date: 01/06/24 Status: Ordered Start: 11-19-2023 End: 12-19-2023 metoclopramide 5 mg oral tab let Dose : 5 mg = 1 tab(s), Oral, achs, PRN nausea, X 15 day(s), # 60 tab(s), 1 Refill(s), 12/19/23 10:06:00 AM EST, Pharmacy: [facility] 167.6, cm, 11/19/23 9:33:00 EST, Height, kg, 11/19/23 9:33:00 EST, Dosing Weight Start Date: 11/19/23 Stop Date: 12/19/23 Status: Ordered mirtazapine 15 mg oral table t (10 sources) Start: 07-04-2023 mirtazapine 15 mg oral tablet Dose : 15 mg = 1 tab(s), Oral, qDay, # 30 tab(s), 0 Refill(s), Pharmacy: [facility] 167.6, cm, 06/24/23 13:14:00 EDT, Height, kg, 06/24/23 13:14:00 EDT, Dosing Weight Start Date: 07/04/23 Status: Ordered Start: 06-03-2023 mirtazapine 15 mg oral tablet Dose : 15 mg = 1 tab(s), Oral, qDay, # 30 tab(s), 0 Refill(s), Pharmacy: [facility], 167.6, cm, 05/15/23 15:33:00 EDT, Height, kg, 05/15/23 15:33:00 EDT, Dosing Weight Start Date: 06/03/23 Status: Ordered Start: 04-28-2023 mirtazapine 15 mg oral tablet Dose : 15 mg = 1 tab(s), Oral, qDay Start Date: 04/28/23 Status: Ordered Start: 01-06-2023 mirtazapine 15 mg oral tablet Dose : 15 mg = 1 tab(s), Oral, qDay, # 30 tab(s), 3 Refill(s), Pharmacy: [facility], 167.6, cm, 01/01/23 16:31:00 [...] q12h, # 60 tab(s), 0 Refill(s), Pharmacy: [facility] Cervical cancer, 167.6, cm, 05/15/23 15:33:00 EDT, [...] q12h, # 28 tab(s), 0 Refill(s), Pharmacy: [facility], Cervical cancer, 167, cm, 04/28/23 13:10:00 EDT, Height, 63.9 Start Date: 05/07/23 Stop Date: 05/21/23 Status: Ordered Start: 03-04-2023 take 1 tablet by saloni th every hour, then take 1 tablet by mouth every twelve hours MS Contin 30 mg/8-12 hrs oral tablet, extended release Dose : 30 mg = 1 tab(s), Oral, q12h, # 60 tab(s), 0 Refill(s), Pharmacy: [facility], Cervical cancer Cancer related pain, 167.6, cm, 02/23/23 21:09:00 EDT, Height, 55.7 Start Date: 03/04/23 Status: Ordered Start: 10-08-2022 End: 10-29-2022 take 1 tablet by mouth every hour, then take 1 tablet by mouth every twelve hours MS Contin 30 mg/8-12 hrs oral tablet, extended release Dose : 30 mg = 1 tab(s), Oral, q12h, # 42 tab(s), 0 Refill(s), Pharmacy: [facility], Cervical cancer, 167.6, cm, 09/30/22 17:45:00 EST, Height, 50.4 Start Date: 10/08/22 Stop Date: 10/29/22 Status: Ordered naproxen 250 mg oral tablet (4 sources) Nonsteroidal Anti-inflammatory Drug Start: 08-16-2022 naproxen 250 mg oral tablet Dose : 250 mg = 1 tab(s), Oral, BID, # 60 tab(s), 0 Refill(s), Pharmacy: [facility], 167.6, cm, 08/08/22 16:51:00 EDT, Height Start Date: 08/16/22 Status: Ordered nitrofurantoin, macrocrystals 25 mg / nitrofurantoin, monohydrate 75 mg oral capsule (1 source) Nitrofuran Antibacterial Start: 08-16-2022 End: 08-19-2022 Macrobid 100 mg oral capsule Dose : 100 mg = 1 cap(s), Oral, BID, Take with food, X 3 day(s), # 6 cap(s), 0 Refill(s), 08/19/22 13:08:00 EDT, Pharmacy: [facility], 167.6, cm, 08/08/22 16:51:00 EDT, Height, 52.5 Start Date: 08/16/22 Stop Date: 08/19/22 Status: Ordered Normal saline (14 sources) Start: 11-21-2022 Normal Saline Flush 0.9% injectable solution Dose : 0.09 gram(s) = 10 mL, IR Drain, Daily, # 300 mL, 12 Refill(s), Pharmacy: [facility], 167.6, cm, 11/15/22 9:52:00 EST, Height, kg, 11/15/22 9:52:00 EST, Dosing Weight Start Date: 11/21/22 Status: Ordered Start: 10-09-2022 Normal Saline Flush 0.9% injectable solution Dose : 0.09 gram(s) = 10 mL, IR Drain, Daily, # 300 mL, 12 Refill(s), Pharmacy: [facility], 167.6, cm, 09/30/22 17:45:00 EST, Height, kg, 09/30/22 17:45:00 EST, Dosing Weight Start Date: 10/09/22 Status: Ordered Start: 10-08-2022 Normal Saline Flush 0.9% injectable solution Dose : 0.09 gram(s) = 10 mL, IR Drain, Daily, # 300 mL, 12 Refill(s), Pharmacy: [facility], 167.6, cm, 09/30/22 17:45:00 EST, Height, kg, 09/30/22 17:45:00 EST, Dosing Weight Start Date: 10/08/22 Status: Ordered Start: 04-12-2021 Normal Saline Flush 0.9% injectable solution Dose : 0.09 gram(s) = 10 mL, IR Drain, Daily, # 300 mL, 12 Refill(s), Pharmacy: [facility], 167.6, cm, 04/12/21 10:36:00 EDT, Height, kg, 04/12/21 10:36:00 EDT, Dosing Weight Start Date: 04/12/21 Status: Ordered OLANZapine 5 mg oral tablet (3 sources) Atypical Antipsychotic Start: 06-21-2022 OLANZap ine 5 mg oral tablet Dose : 5 mg = 1 tab(s), Oral, qHS, # 90 tab(s), 3 Refill(s), Pharmacy: [facility], 167.6, cm, 05/23/22 11:20:00 EDT, Height, kg, 05/23/22 11:20:00 EDT, Dosing Weight Start Date: 06/21/22 Status: Ordered Start: 04-19-2022 OLANZapine 5 m g oral tablet Dose : 5 mg = 1 tab(s), Oral, qHS, # 30 tab(s), 1 Refill(s), Pharmacy: [facility], 167.6, cm, 04/14/22 22:09:00 EDT, Height Start Date: 04/19/22 Status: Ordered ondansetron 4 mg disintegrating oral tablet (20 sources) 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 Start: 06-04-2025 take 1 tablet by mouth every eight hours as needed for nausea Ondansetron 4 mg tablet,disintegrating Active 4 mg PO EVERY 8 HOURS NEEDED as needed for Nausea June 04, 2025 12:00am Start: 12-10-2024 take 1 tablet by saloni th every six hours as needed for nausea and vomiting Ondansetron Hcl 4 mg tablet Active 4 mg PO EVERY 6 HOURS as needed for nausea and vomiting April 09, 2025 12:00am Start: 05-24-2024 ondansetron 4 mg oral tablet Dose : 4 mg = 1 tab(s), Oral, BID, TAKE ONE TABLET BY MOUTH EVERY 8 HOURS NEEDED FOR NAUSEA AND VOMITING, # 60 tab(s), 2 Refill(s), Pharmacy: [facility] 167.6, cm, 05/24/24 11:29:00 EDT, Height, kg, 05/24/24 11:29:00 EDT, Dosing Weight Start Date: 05/24/24 Status: Ordered Start: 03-16-2024 End: 04-30-2024 Zofran 4 mg oral tablet Dose : 4 mg = 1 tab(s), Oral, q8h, PRN Nausea/Vomiting, X 15 day(s), # 45 tab(s), 2 Refill(s), 04/30/24 4:58:00 PM EDT, Pharmacy: [facility] 167.6, cm, 03/04/24 9:28:00 EDT, Height, [...] 4 Refill(s), 02/07/24 9:38:00 AM EDT, Pharmacy: [facility] 167.6, cm, 11/19/23 9:33:00 EST, Height, kg, 11/19/23 9:33:00 EST, Dosing Weight Start Date: 11/24/23 Stop Date: 02/07/24 Status: Ordered Start: 04-28-2023 End: 10-30-2023 ondansetron 4 mg oral tablet Dose : 4 mg = 1 tab(s), Oral, q6h, PRN Nausea/Vomiting, # 60 tab(s), 2 Refill(s), Pharmacy: [facility] 167.6, cm, 09/03/23 13:59:00 EDT, Height, kg, 09/03/23 13:59:00 EDT, Dosing Weight Start Date: 09/15/23 Stop Date: 10/30/23 Status: Ordered Start: 01-23-2023 End: 02-22-2023 ondansetron 4 mg oral tablet Dose : 4 mg = 1 tab(s), Oral, q6h, PRN Nausea/Vomiting, # 120 tab(s), 0 Refill(s), Pharmacy: [facility], 167.6, cm, 01/01/23 16:31:00 EST, Height Start Date: 01/23/23 Stop Date: 02/22/23 Status: Ordered Start: 10-08-2022 End: 12-07-2022 Zofran 4 mg oral tablet Dose : 4 mg = 1 tab(s), Oral, q6h, PRN Nausea/Vomiting, # 60 tab(s), 1 Refill(s), Pharmacy: [facility], Cervical cancer, 167.6, cm, 09/30/22 17:45:00 EST, Height, kg, 09/30/22 17:45:00 EST, Dosing Weight Start Date: 11/06/22 Status: Ordered Start: 07-19-2022 End: 09-17-2022 Zofran 4 mg oral tablet Dose : 4 mg = 1 tab(s), Oral, q6h, PRN Nausea/Vomiting, Take 20-30 minutes prior to taking pain medication, # 120 tab(s), 1 Refill(s), Pharmacy: [facility], 167.6, cm, 07/04/22 10:37:00 EDT, Height, kg, 07/04/22 10:37:00 EDT, Dosing Weight Start Date: 07/19/22 Stop Date: 09/17/22 Status: Ordered Start: 03-14-2022 End: 06-18-2022 Zofran 4 mg oral tablet Dose : 4 mg = 1 tab(s), Oral, q6h, PRN Nausea/Vomiting, Take 20-30 minutes prior to taking pain medication, # 120 tab(s), 1 Refill(s), Pharmacy: [facility], 167.6, cm, 04/14/22 22:09:00 EDT, Height, kg, 04/14/22 22:09:00 EDT, Dosing Weight Start Date: 04/19/22 Stop Date: 06/18/22 Status: Ordered Start: 11-05-2021 End: 06-17-2022 take 1 dose by mouth every six hours ondansetron 4 mg oral disintegrating strip Dose : 4 mg = 1 film, Oral, q6h, X 30 day(s), # 30 film, 4 Refill(s), 06/17/22 12:00:00 EDT, Pharmacy: [facility], 167.6, cm, 01/16/22 19:29:00 EDT, Height, kg, 01/16/22 19:29:00 EDT, Dosing Weight Start Date: 01/18/22 Stop Date: 06/17/22 Status: Ordered Start: 08-07-2021 End: 10-06-2021 take 1 dose by mouth every six hours ondansetron 4 mg oral disintegrating strip Dose : 4 mg = 1 film, Oral, q6h, X 30 day(s), # 30 film, 1 Refill(s), 10/06/21 11:19:00 EST, Pharmacy: [facility], 167.6, cm, 05/22/21 17:26:00 [...] today, # 240 tab(s), 0 Refill(s), Pharmacy: [facility] Cervical ca Cancer related pain, 164, cm, [...] pain, # 240 tab(s), 0 Refill(s), Pharmacy: [facility] Cervical ca Cancer related pain, 165.1, cm, 04/11/25 10:32:00 EDT, Height, 50, kg, 04/11/25 10:32:00 EDT, Dosing Weight Start Date: 04/11/25 Status: Ordered Quantity: 240.0 Unit: tab(s) Repeat number: 1 Indications: Neoplasm related pain (acute) (chronic); Malignant neoplasm of cervix uteri, unspecified; Start: 04-09-2025 take 2 tablets by cox [facility] every six hours as needed for pain Oxycodone 5 mg tablet Active 10 mg PO EVERY 6 HOURS as needed for pain 0 April 09, 2025 12:00am Start: 03-10-2025 oxyCODONE 5 mg oral tablet ( IMMEDIATE release ) Dose : 10 mg = 2 tab(s), Oral, q6h, PRN for pain, may dispense 03/11/25, # 240 tab(s), 0 Refill(s), Pharmacy: [facility] Cervical ca Cancer related pain, 165.1, cm, [...] pain, # 240 tab(s), 0 Refill(s), Pharmacy: [facility] Cervical ca Cancer related pain, 167.6, cm, [...] today, # 240 tab(s), 0 Refill(s), Pharmacy: [facility] Cervical ca Cancer related pain, 167.6, cm, 07/19/24 11:26:00 EDT, Height, 60.9, kg, 07/19/24 11:26:00 EDT, Dosing Weight Start Date: 07/19/24 Status: Ordered Start: 05-24-2024 oxyCODONE 5 mg oral tablet ( IMMEDIATE release ) Dose : 5 mg = 1 tab(s), Oral, q6hr, PRN for pain, # 120 tab(s), 0 Refill(s), Pharmacy: [facility] Cancer related pain History of cervical cancer, 167.6, cm, 05/24/24 11:29:00 EDT, Height, 61.5, kg, 05/24/24 11:29:00 EDT, Dosing Weight Start Date: 05/24/24 Status: Ordered Start: 04-01-2024 oxyCODONE 5 mg oral tablet ( IMMEDIATE release ) Dose : 10 mg = 2 tab(s), Oral, q8h, PRN for pain, # 150 tab(s), 0 Refill(s), Pharmacy: [facility] Cancer related pain History of cervical cancer, 167.6, cm, 03/04/24 9:28:00 EDT, Height, 60, kg, 03/04/24 9:28:00 EDT, Dosing Weight Start Date: 04/01/24 Status: Ordered Start: 02-04-2024 oxyCODONE 5 mg oral tablet ( IMMEDIATE release ) Dose : 10 mg = 2 tab(s), Oral, q8h, PRN for pain, # 150 tab(s), 0 Refill(s), Pharmacy: [facility] Cancer related pain History of cervical cancer, 167.6, cm, 03/04/24 9:28:00 EDT, Height, 60, kg, 03/04/24 9:28:00 EDT, Dosing Weight Start Date: 03/04/24 Status: Ordered Start: 01-06-2024 oxyCODONE 10 m g oral tablet Dose : 10 mg = 1 tab(s), Oral, q8h, PRN for pain, # 90 tab(s), 0 Refill(s), Pharmacy: [facility], Cancer related pain History of cervical cancer, 167.6, cm, 01/06/24 10:18:00 EST, Height, 58.3, kg, 01/06/24 10:18:00 EST, Dosing Weight Start Date: 01/06/24 Status: Ordered Start: 12-08-2023 oxyCODONE 10 m g oral tablet Dose : 10 mg = 1 tab(s), Oral, q6h, PRN for pain, # 120 tab(s), 0 Refill(s), Pharmacy: [facility], Cancer related pain History of cervical cancer, 167.6, cm, 12/08/23 14:57:00 EST, Height, 58.2, kg, 12/08/23 14:57:00 EST, Dosing Weight Start Date: 12/08/23 Status: Ordered Start: 11-20-2023 OxyContin 10 m g oral tablet, extended release Dose : 10 mg = 1 tab(s), Oral, q12h, # 60 tab(s), 0 Refill(s), Pharmacy: [facility] Cervical ca, 167.6, cm, 11/19/23 9:33:00 EST, Height, 61.3, kg, 11/19/23 9:33:00 EST, Dosing Weight Start Date: 11/20/23 Status: Ordered Start: 11-05-2023 oxyCODONE 15 m g oral tablet ( IMMEDIATE release ) Dose : 15 mg = 1 tab(s), Oral, q6hr, PRN as needed for pain, # 120 tab(s), 0 Refill(s), Pharmacy: [facility] Cervical cancer, 167.6, cm, 10/22/23 10:21:00 EST, Height, 61.4, kg, 10/22/23 10:21:00 EST, Dosing Weight Start Date: 11/05/23 Status: Ordered Start: 10-16-2023 OxyContin 15 m g oral tablet, extended release Dose : 15 mg = 1 tab(s), Oral, BID, # 60 tab(s), 0 Refill(s), Pharmacy: [facility] Cancer related pain Cervical ca, 167.6, cm, 09/03/23 13:59:00 EDT, Height, 63.6, kg, 09/03/23 13:59:00 EDT, Dosing Weight Start Date: 10/16/23 Status: Ordered Start: 09-12-2023 oxyCODONE 15 m g oral tablet ( IMMEDIATE release ) Dose : 15 mg = 1 tab(s), Oral, q6hr, may fill on 10/05/23, # 120 tab(s), 0 Refill(s), Pharmacy: [facility] Cervical cancer, 167.6, cm, 09/03/23 13:59:00 EDT, Height, 63.6, kg, 09/03/23 13:59:00 EDT, Dosing Weight Start Date: 09/12/23 Status: Ordered Start: 09-12-2023 OxyContin 15 m g oral tablet, extended release Dose : 15 mg = 1 tab(s), Oral, BID, # 60 tab(s), 0 Refill(s), Pharmacy: [facility] Cancer related pain Cervical ca, 167.6, cm, 09/03/23 13:59:00 EDT, Height, 63.6, kg, 09/03/23 13:59:00 EDT, Dosing Weight Start Date: 09/12/23 Status: Ordered Start: 08-21-2023 oxyCODONE 10 m g oral tablet ( IMMEDIATE release ) Dose : 10 mg = 1 tab(s), Oral, q6h, PRN as needed for pain, # 120 tab(s), 0 Refill(s), Pharmacy: [facility] Cancer related pain History of cervical cancer, 167.6, cm, 08/21/23 15:13:00 EDT, Height, 64.2, kg, 08/21/23 15:13:00 EDT, Dosing Weight Start Date: 08/21/23 Status: Ordered Start: 08-06-2023 OxyContin 15 m g oral tablet, extended release Dose : 15 mg = 1 tab(s), Oral, BID, # 60 tab(s), 0 Refill(s), Pharmacy: [facility] Cancer related pain Cervical ca, 167.6, cm, 07/30/23 11:18:00 EDT, Height, 62.6, kg, 07/30/23 11:18:00 EDT, Dosing Weight Start Date: 08/06/23 Status: Ordered Start: 07-24-2023 End: 08-03-2023 oxyCODONE 5 mg oral tablet ( IMMEDIATE release ) Dose : 15 mg = 3 tab(s), Oral, q4hr, PRN as needed for pain, # 180 tab(s), 0 Refill(s), Pharmacy: [facility] Cancer related pain Cervical ca, 167.6, cm, 07/24/23 10:14:00 EDT, Height, 67.8, kg, 07/24/23 10:14:00 EDT, Dosing Weight Start Date: 07/24/23 Stop Date: 08/03/23 Status: Ordered Start: 07-15-2023 OxyContin 15 m g oral tablet, extended release Dose : 15 mg = 1 tab(s), Oral, BID, # 60 tab(s), 0 Refill(s), Pharmacy: [facility] Cancer related pain Cervical ca, 167.6, cm, 07/09/23 7:02:00 EDT, Height, 62.8, kg, 07/09/23 7:02:00 EDT, Dosing Weight Start Date: 07/15/23 Status: Ordered Start: 07-15-2023 End: 07-22-2023 oxyCODONE 5 mg oral tablet ( IMMEDIATE release ) Dose : 15 mg = 3 tab(s), Oral, q4hr, PRN as needed for pain, # 126 tab(s), 0 Refill(s), Pharmacy: [facility] Cancer related pain Cervical ca, 167.6, cm, [...] 0 Refill(s), 07/26/23 11:49:00 AM EDT, Pharmacy: [facility] Cervical cancer, 167.6, cm, 06/24/23 13:14:00 EDT, Height, 64, kg, 06/24/23 13:14:00 EDT, Dosing Weight Start Date: 06/26/23 Stop Date: 07/26/23 Status: Ordered Start: 05-07-2023 End: 05-17-2023 oxyCODONE 10 mg oral tablet ( IMMEDIATE release ) Dose : 10 mg = 1 tab(s), Oral, q4h, PRN Pain, X 5 day(s), # 30 tab(s), 0 Refill(s), 05/17/23 10:46:00 EDT, Pharmacy: [facility], Cervical cancer, 167, cm, [...] tab(s), 0 Refill(s), 04/03/23 8:11:00 EDT, Pharmacy: [facility], Cervical cancer Cancer related pain, 167.6, cm, 02/23/23 21:09:00 EDT, Height, 55.7 Start Date: 03/04/23 Stop Date: 04/03/23 Status: Ordered Start: 10-08-2022 End: 10-29-2022 oxyCODONE 10 mg oral tablet ( IMMEDIATE release ) Dose : 10 mg = 1 tab(s), Oral, q4h, PRN abdominal discomfort, X 21 day(s), # 126 tab(s), 0 Refill(s), 10/29/22 14:33:00 EST, Pharmacy: [facility], Cervical cancer, 167.6, cm, 09/30/22 17:45:00 EST, Height, 50.4 Start Date: 10/08/22 Stop Date: 10/29/22 Status: Ordered pantoprazole 40 mg delayed release oral tablet (2 sources) Proton Pump Inhibitor Start: 11-19-2023 pantoprazole 40 mg o ral enteric coated tablet Dose : 40 mg = 1 tab(s), Oral, qDayAC, # 30 tab(s), 1 Refill(s), Pharmacy: [facility] 167.6, cm, 11/19/23 9:33:00 EST, Height, kg, 11/19/23 9:33:00 EST, Dosing Weight Start Date: 11/19/23 Status: Ordered potassium chloride 20 meq oral tablet (1 source) Start: 04-28-2024 Potassium Chlo ride (Yyt-Bxqa-Nhm M20) 20 mEq oral tablet, extended release [...] tab(s), 1 Refill(s), 06/18/22 15:02:00 EDT, Pharmacy: [facility], 167.6, cm, 04/14/22 22:09:00 EDT, Height Start Date: 04/19/22 Stop Date: 06/18/22 Status: Ordered sertraline 25 mg oral tablet (2 sources) Serotonin Reuptake Inhibitor Start: 08-21-2023 Zoloft 25 mg oral tablet Dose : 25 mg = 1 tab(s), Oral, qDay, # 30 tab(s), 1 Refill(s), Pharmacy: [facility] 167.6, cm, 08/21/23 15:13:00 EDT, Height, kg, 08/21/23 15:13:00 EDT, Dosing Weight Start Date: 08/21/23 Status: Ordered tamsulosin hydrochloride 0.4 mg oral capsule (2 sources) alpha-Adrenergic Linsey Start: 07-19-2024 tamsulosin 0.4 mg or al capsule Dose : 0.4 mg = 1 cap(s), Oral, BID, # 30 cap(s), 2 Refill(s), Pharmacy: [facility] 167.6, cm, 07/19/24 11:26:00 EDT, Height, [...] qHS, # 30 cap(s), 0 Refill(s), Pharmacy: [facility], Cervical cancer, 167.6, cm, 05/15/23 15:33:00 EDT, Height, 65.9, kg, 05/15/23 15:33:00 EDT, Dosing Weight Start Date: 06/09/23 Stop Date: 07/09/23 Status: Ordered Start: 04-28-2023 End: 06-07-2023 take 1 capsule by mouth once daily at bedtime gabapentin 300 mg oral capsule 1 cap(s), Oral, qHS, # 30 cap(s), 30, 0 Refill(s), Pharmacy: [facility], 167, cm, 04/28/23 13:10:00 [...] nausea/vomiting, # 40 supp, 0 Refill(s), Pharmacy: [facility], 167.6, cm, 08/08/22 16:51:00 EDT, Height Start Date: 08/16/22 Status: Ordered sulfamethoxazole 800 mg / trimethoprim 160 mg oral tablet (13 sources) Dihydrofolate Reductase Inhibitor Antibacterial, Sulfonamide Antimicrobial Start: 04-09-2025 End: 06-03-2025 Sulfamethoxazole-Tri methoprim (Bactrim Ds) 800-160 mg tablet Discontinued 1 {tbl} PO TWICE A DAY 14 7 0 June 02, 2025 12:00am June 03, 2025 11:32pm Start: 03-08-2025 End: 04-07-2025 take 1 tablet by mouth twice daily Bactrim DS 800 mg-160 mg oral tablet Dose = 1 tab(s), Oral, BID, X 30 day(s), # 60 tab(s), 0 Refill(s), Pharmacy: [facility] 165.1, cm, 03/08/25 14:18:00 EDT, Height, 55.2, [...] day(s), # 10 tab(s), 0 Refill(s), Pharmacy: [facility], 167.6, cm, 01/01/23 16:31:00 [...] hours Quantity: 20 Refills: 0 Ordered: 14-Jul-2021 ServetaAdriano pattersona Start: 14-Jul-2021 Generic Substitution Allowed Problems Active Problems Problem Classification Problem Date [...] (ESBL) resistance] Episodic Calculus of urinary tract (15 sources) Kidney stone; Translations: [Ureteric stone] Onset: [...] Chronic Complication of device; implant or graft (4 sources) Disorders of urogenital prostheses or implants; Translations: [Unspecified complication of genitourinary prosthetic device, implant and graft, initial encounter] Onset: 05-27-2025 Episodic Crushing injury or internal injury (20 sources) Injury of kidney 04-16-2020 Episodic E Codes: Fall (1 source) Unspecified fall, initial encounter; Translations: [Unspecified fall, initial encounter] Episodic Esophageal disorders (1 source) Gastro-esophageal reflux disease without esophagitis; Translations: [Gastro-esophageal reflux disease without esophagitis] Onset: 05-27-2025 Chronic Essential hypertension (1 source) Essential hypertension; Translations: [Essential (primary) hypertension] Onset: 07-09-2023 Chronic Fluid and electrolyte disorders (20 sources) Dehydration 04-16-2020 Episodic Gastritis and duodenitis (2 sources) Duodenitis; Translations: [Duodenitis without bleeding] Onset: 04-15-2022 Episodic Genitourinary symptoms and ill-defined conditions (13 sources) Urostomy present; Translations: [Other artificial openings [...] diseases of kidney and ureters (3 sources) Occlusion of ureter; Translations: [Crossing vessel [...] (1 source) Pain; Translations: [Pain, unspecified] Episodic Residual codes; unclassified (1 source) Acquired absence of both cervix and uterus; Translations: [Acquired absence of both cervix and uterus] Onset: 05-27-2025 Episodic Residual codes; unclassified (1 source) Personal history of antineoplastic chemotherapy; Translations: [Personal history of antineoplastic chemotherapy] Onset: 05-27-2025 Episodic Residual codes; unclassified (1 source) Personal history of irradiation; Translations: [Personal history of irradiation] Onset: 05-27-2025 Episodic Residual codes; unclassified (1 source) Procedure and treatment not carried out because of patient's decision for other reasons; Translations: [Procedure and treatment not carried out because of patient's decision for other reasons] Onset: 05-27-2025 Episodic Spondylosis; intervertebral disc disorders; other back [...] Test Name Value Interpretation Reference Range Facility Abdomen/Pelvis W IV Cont ONL Yon 08-02-2025 Abdomen/Pelvis W IV Cont ONLY [facility] Imaging Services [address] [place], [place] [id number] Abdomen/Pelvis W IV Cont ONLY MR#: [id number] Acct: [id number] Name: LALY NAVAS Rep #: [id number] : 1990 F 34 From: Garland Crowley MD PCP: [facility] Status: REG ER Study: Abdomen/Pelvis W IV Cont ONLY Date of Exam: Exam# [id number] Ordering Dr: Yeison Webber DO PROCEDURE: ABDOMEN/PELVIS W IV CONT ONLY 06/04/2025 REASON FOR EXAM: PAIN TECHNIQUE: ABDOMEN/PELVIS W IV CONT ONLY Coronal and Sagittal reconstruction series were provided. CONTRAST: Isovue 370 VOLUME: 75 mL One or more dose reduction techniques were used (e.g., Automated exposure control, adjustment of the mA and/or kV according to patient size, use of iterative reconstruction technique. RADIATION DOSE SUMMARY: CTDlvol: 6 mGy DLP: 272 mGycm COMPARISON: No FINDINGS: Under aerated lung bases. Normal heart size. Liver is upper limits of normal for size, correlate for medical liver disease. Normal gallbladder, pancreas,, adrenal glands, right kidney. Left renal scarring. Percutaneous nephrostomy tube in good position. Simple left renal cysts. Thickening of the left-sided urothelial lining possible UTI or chronic inflammation. Multiple distal left ureteral stones, series 2 images 106, 116, 119, largest measures 3 mm. Unremarkable bladder. Status post hysterectomy. Small pelvic free fluid. Mild retroperitoneal adenopathy, at the kidney level, likely related to chronic left kidney inflammation. Mild presacral edema. No free air. Nonobstructed bowel. Normal appendix. No acute large bowel findings. Diverticulosis. No acute abdominal wall findings. CT/Abdomen/Pelvis W IV Cont ONLY IMPRESSION: Left renal scarring and percutaneous nephrostomy in good position. Left-sided urinary tract infection versus chronic inflammation of the urothelial lining. Multiple small distal left ureteral stones. Reading Location: [place] [address] CC: Dr. Yeison Webber DO; [facility] [employer] Attendant: Signed Normal [facility] Absolute lymphocyte countOrd ered By: Yeison Webber on 06-04-2025 Lymphocytes Auto (Unsp spec) [#/Vol] 2.73 10*3/uL 0.83-4.51 [facility] Absolute neutrophil countOrd ered By: Yeison Webber on 06-04-2025 Neutrophils (Bld) [#/Vol] 6.1 10*3/uL 2.0-7.7 [facility] Anion gap in Serum or Plasma Ordered By: Yeison Webber on 06-04-2025 Anion gap [Moles/Vol] 11 mmol/L 5-15 [facility] Automated lymphocyte count a s percentage of total leukocytesOrdered By: Yeison Webber on 06-04-2025 Lymphocytes/100 WBC Auto (Unsp spec) 27.3 % 19-41 [facility] BUN/creatinine ratioOrdered By: Yeison Webber on 06-04-2025 Urea nitrogen/Creatinine [Mass ratio] 15.5 mg/mg 10-20 [facility] Basophil percentageOrdered B y: Yeison Webber on 06-04-2025 Basophils/100 WBC (Bld) 0.7 % 0-1 [facility] Bilirubin Test strip Ql (U)O rdered By: Yeison Webber on 06-04-2025 Bilirubin Ql (U) Negative Negative [facility] Bilirubin, totalOrdered By: Yeison Webber on 06-04-2025 Bilirubin [Mass/Vol] 0.16 mg/dL 0.00-1.30 [facility] CBC W/Diff, Automatedon Absolute Lymph 2.73 X10 3/uL Normal 0.83-4.51 [facility] Comment on above: Performed By: #### L [id number], L100.0100, [id number] #### [facility] [address] [place], [address] Absolute Neut 6.1 X10 3/uL Normal 2.0-7.7 [facility] Comment on above: Performed By: #### L [id number], L100.0100, [id number] #### [facility] [address] [place], [address] Basophils/100 WBC (Bld) 0.7 % Normal 0-1 [facility] Comment on above: Performed By: #### L [id number], L100.0100, [id number] #### [facility] [address] [place], [address] Eosinophils/100 WBC (Bld) 2.6 % Normal 0-5 [facility] Comment on above: Performed By: #### L [id number], L100.0100, [id number] #### [facility] [address] [place], [address] Erythrocyte distribution width (RBC) [Ratio] 14.6 % Normal 11.6-14.6 [facility] Comment on above: Performed By: #### L [id number], L100.0100, [id number] #### [facility] [address] [place], [address] Hematocrit (Bld) [Volume fraction] 35.7 % Low 37-47 [facility] Comment on above: Performed By: #### L [id number], L100.0100, [id number] #### [facility] [address] [place], [address] Hemoglobin (Bld) [Mass/Vol] 12.3 g/dL Normal 12.0-15.0 [facility] Comment on above: Performed By: #### L [id number], L100.0100, [id number] #### [facility] [address] [place], [address] IG% 0.500 Normal 0.0-0.9 [facility] Comment on above: Result Comment: IG% - Immature Granulocytes (promyelocytes, myelocytes and metamyelocytes) > 1% indicates that a LEFT SHIFT is Present. Performed By: #### L [id number], L100.0100, [id number] #### [facility] [address] [place], [address] Lymphocytes/100 WBC (Bld) 27.3 % Normal 19-41 [facility] Comment on above: Performed By: #### L [id number], L100.0100, [id number] #### [facility] [address] [place], [address] MCH (RBC) [Entitic mass] 32.8 pg High 27.0-32.0 [facility] Comment on above: Performed By: #### L [id number], L100.0100, [id number] #### [facility] [address] [place], [address] MCHC (RBC) [Mass/Vol] 34.5 g/dL Normal 32-36 [facility] Comment on above: Performed By: #### L [id number], L100.0100, [id number] #### [facility] [address] [place], [address] MCV (RBC) [Entitic vol] 95.2 fL Normal 81-99 [facility] Comment on above: Performed By: #### L [id number], L100.0100, [id number] #### [facility] [address] [place], [address] Monocytes/100 WBC (Bld) 7.7 % Normal 0-10 [facility] Comment on above: Performed By: #### L [id number], L100.0100, [id number] #### [facility] [address] [place], [address] Neutrophils/100 WBC (Bld) 61.2 % Normal 47-70 [facility] Comment on above: Performed By: #### L [id number], L100.0100, [id number] #### [facility] [address] [place], [address] Nucleated RBC (Bld) [#/Vol] 0 10*3/uL Normal 0-5 [facility] Comment on above: Performed By: #### L [id number], L100.0100, [id number] #### [facility] [address] [place], [address] Platelet mean volume (Bld) [Entitic vol] 9.0 fL Normal 6.2-12.0 [facility] Comment on above: Performed By: #### L 501.2450, L100.0100, L500.4050 #### [facility] [address] [place], [address] Platelets (Bld) [#/Vol] 324 10*3/uL Normal 150-450 [facility] Comment on above: Performed By: #### L 501.2450, L100.0100, L500.4050 #### [facility] [address] [place], [address] RBC (Bld) [#/Vol] 3.75 10*6/uL Low 4.2-5.4 [facility] Comment on above: Performed By: #### L 501.2450, L100.0100, L500.4050 #### [facility] [address] [place], [address] RDW SD 51.7 fl High 35.1-43.9 [facility] Comment on above: Performed By: #### L 501.2450, L100.0100, L500.4050 #### [facility] [address] [place], [address] WBC (Bld) [#/Vol] 10.0 10*3/uL Normal 4.4-11.0 [facility] Comment on above: Performed By: #### L 501.2450, L100.0100, L500.4050 #### [facility] [address] [place], [address] Carbon dioxide, total [Moles /volume] in Central venous bloodOrdered By: Yeison Webber on 06-04-2025 CO2 [Moles/Vol] 23.2 mmol/L 21.0-32.0 [facility] Chloride assayOrdered By: Richard Webber on 06-04-2025 Chloride [Moles/Vol] 103 mmol/L 98-108 [facility] Comprehensive Metabolic Prof ilon 06-04-2025 Albumin [Mass/Vol] 4.0 g/dL Normal 3.5-5.0 [facility] Comment on above: Performed By: #### L 501.2450, L100.0100, L500.4050 #### [facility] [address] [place], [address] Albumin/Globulin [Mass ratio] 1.9 {ratio} Normal 0.9-2.4 [facility] Comment on above: Performed By: #### L 501.2450, L100.0100, L500.4050 #### [facility] [address] [place], [address] ALK PHOS 65 U/L Normal 35-104 [facility] Comment on above: Performed By: #### L 501.2450, L100.0100, L500.4050 #### [facility] [address] [place], [address] ALT [Catalytic activity/Vol] 8 U/L Normal <=34 [facility] Comment on above: Performed By: #### L 501.2450, L100.0100, L500.4050 #### [facility] [address] [place], [address] AST [Catalytic activity/Vol] 14 U/L Normal <=31 [facility] Comment on above: Performed By: #### L 501.2450, L100.0100, L500.4050 #### [facility] [address] [place], [address] Bilirubin [Mass/Vol] 0.16 mg/dL Normal 0.00-1.30 [facility] Comment on above: Performed By: #### L 501.2450, L100.0100, L500.4050 #### [facility] [address] [place], [address] BUN/CRE 15.5 RATIO Normal 10-20 [facility] Comment on above: Performed By: #### L 501.2450, L100.0100, L500.4050 #### [facility] [address] [place], [address] Calcium [Mass/Vol] 9.1 mg/dL Normal 7.6-11.0 [facility] Comment on above: Performed By: #### L 501.2450, L100.0100, L500.4050 #### [facility] [address] [place], [address] Chloride [Moles/Vol] 103 mmol/L Normal 98-108 [facility] Comment on above: Performed By: #### L 501.2450, L100.0100, L500.4050 #### [facility] [address] [place], [address] CO2 [Moles/Vol] 23.2 mmol/L Normal 21.0-32.0 [facility] Comment on above: Performed By: #### L 501.2450, L100.0100, L500.4050 #### [facility] [address] [place], [address] Creatinine [Mass/Vol] 0.87 mg/dL Normal 0.70-1.20 [facility] Comment on above: Performed By: #### L 501.2450, L100.0100, L500.4050 #### [facility] [address] [place], [address] ECRCL 69.57 ml/min Normal 50-250 [facility] Comment on above: Performed By: #### L 501.2450, L100.0100, L500.4050 #### [facility] [address] [place], [address] GAP 11 Normal 5-15 [facility] Comment on above: Performed By: #### L 501.2450, L100.0100, L500.4050 #### [facility] [address] [place], [address] GFR/1.73 sq M.predicted among non-blacks MDRD (S/P/Bld) [Vol rate/Area] 89 mL/min/{1.73_m2} Normal >60 [facility] Comment on above: Result Comment: mL/m in/1.73m2 CKD-EPI Creatinine Equation (2020) Performed By: #### L 501.2450, L100.0100, L500.4050 #### [facility] [address] [place], [address] Globulin (S) [Mass/Vol] 2.1 g/dL Low 2.2-4.2 [facility] Comment on above: Performed By: #### L 501.2450, L100.0100, L500.4050 #### [facility] [address] [place], [address] Glucose [Mass/Vol] 87 mg/dL Normal 70-99 [facility] Comment on above: Performed By: #### L 501.2450, L100.0100, L500.4050 #### [facility] [address] [place], [address] Potassium [Moles/Vol] 3.6 mmol/L Normal 3.3-5.1 [facility] Comment on above: Performed By: #### L 501.2450, L100.0100, L500.4050 #### [facility] [address] [place], [address] Sodium [Moles/Vol] 137 mmol/L Normal 133-145 [facility] Comment on above: Performed By: #### L 501.2450, L100.0100, L500.4050 #### [facility] [address] [place], [address] T PROT 6.1 g/dL Normal 5.9-8.4 [facility] Comment on above: Performed By: #### L 501.2450, L100.0100, L500.4050 #### [facility] [address] [place], [address] Urea nitrogen [Mass/Vol] 14 mg/dL Normal 4-19 [facility] Comment on above: Performed By: #### L 501.2450, L100.0100, L500.4050 #### [facility] [address] [place], [address] Eosinophil percentageOrdered By: Yeison Webber on 06-04-2025 Eosinophils/100 WBC (Bld) 2.6 % 0-5 [facility] Erythrocyte distribution wid th ratioOrdered By: Yeison Webber on 06-04-2025 Erythrocyte distribution width (RBC) [Ratio] 14.6 % 11.6-14.6 [facility] Erythrocyte distribution wid th standard deviationOrdered By: Yeison Webber on 06-04-2025 Erythrocyte distribution width (RBC) [Ratio] 51.7 fl High 35.1-43.9 [facility] Glomerular filtration rate ( GFR) estimation/1.73 sq m using serum, plasma, or whole bOrdered By: Yeison Webber on 06-04-2025 GFR/1.73 sq M.predicted among non-blacks MDRD (S/P/Bld) [Vol rate/Area] 89 mL/min/{1.73_m2} >60 [facility] Comment on above: mL/min/1.73m2 CKD-EP I Creatinine Equation (2020) Hematocrit Auto (Bld) [Volum e fraction]Ordered By: Yeison Webber on 06-04-2025 Hematocrit (Bld) [Volume fraction] 35.7 % Low 37-47 [facility] Hemoglobin measurementOrdere d By: Yeison Webber on 06-04-2025 Hemoglobin (Bld) [Mass/Vol] 12.3 g/dL 12.0-15.0 [facility] Immature granulocytes/100 WB C Auto (Bld)Ordered By: Yeison Webber on 06-04-2025 Immature granulocytes/100 WBC (Bld) 0.500 % 0.0-0.9 [facility] Comment on above: IG% - Immature Granu locytes (promyelocytes, myelocytes and metamyelocytes) > 1% indicates that a LEFT SHIFT is Present. Ketones Test strip Ql (U)Ord ered By: Yeison Webber on 06-04-2025 Ketones Ql (U) Negative Negative [facility] - Chemistry and C hemistry - challengeOrdered By: Yeison Webber on 06-04-2025 AST [Catalytic activity/Vol] 14 U/L <32 [facility] Lipaseon 06-04-2025 Lipase [Catalytic activity/Vol] 15 U/L Normal 13-75 [facility] Comment on above: Result Comment: Plea note: LIPASE revised reference range effective 23. New Lipase methodology. Expected to produce lower values than the previous assay method. NEW Reference Range: 13 - 75 U/L Performed By: #### L 501.2450, L100.0100, L500.4050 #### [facility] [address] [place] [address], [id number] Lipase measurementOrdered By : Yeison Webber on 06-04-2025 Lipase [Catalytic activity/Vol] 15 U/L 13-75 [facility] Comment on above: Please note:LIPASE r evised reference range effective 23. New Lipase methodology. Expected to produce lower values than the previous assay method. NEW Reference Range: 13 - 75 U/L MCV (mean corpuscular volume ) determinationOrdered By: Yeison Webber on 06-04-2025 MCV (RBC) [Entitic vol] 95.2 fL 81-99 [facility] Mean corpuscular hemoglobin (MCH) determinationOrdered By: Yeison Webber on 06-04-2025 MCH (RBC) [Entitic mass] 32.8 pg High 27.0-32.0 [facility] Mean corpuscular hemoglobin concentration (MCHC) determinationOrdered By: Yeison Webber on 06-04-2025 MCHC (RBC) [Mass/Vol] 34.5 g/dL 32-36 [facility] Mean platelet volume determi nationOrdered By: Yeison Webber on 06-04-2025 Platelet mean volume (Bld) [Entitic vol] 9.0 fL 6.2-12.0 [facility] Microscopic analysis of urin e for red blood cells (RBC)Ordered By: Yeison Webber on 06-04-2025 Microscopic analysis of urine for red blood cells (RBC) 25-50 SEEN /hpf 0-5 [facility] Monocyte percentageOrdered B y: Yeison Webber on 06-04-2025 Monocytes/100 WBC (Bld) 7.7 % 0-10 [facility] Mucus LM Ql (Urine sed)Order ed By: Yeison Webber on 06-04-2025 Mucus Ql (Urine sed) 0 SEEN /hpf [facility] Neutrophil percentageOrdered By: Yeison Webber on 06-04-2025 Neutrophils/100 WBC (Bld) 61.2 % 47-70 [facility] Nitrite Test strip Ql (U)Ord ered By: Yeison Webber on 06-04-2025 Nitrite Ql (U) Positive High Negative [facility] Nucleated red blood cell per centageOrdered By: Yeison Webber on 06-04-2025 Nucleated RBC/100 WBC (Bld) [Ratio] 0 % 0-5 [facility] Platelet countOrdered By: Richard eWbber on 06-04-2025 Platelets (Bld) [#/Vol] 324 10*3/uL 150-450 [facility] Potassium measurement (mass/ volume)Ordered By: Yeison Webber on 06-04-2025 Potassium (Unsp spec) [Mass/Vol] 3.6 mmol/L 3.3-5.1 [facility] Protein Test strip Ql (U)Ord ered By: Yeison Webber on 06-04-2025 Protein Ql (U) 100 mg/dl High Negative [facility] RBC Auto (Bld) [#/Vol]Ordere d By: Yeison Webber on 06-04-2025 RBC (Bld) [#/Vol] 3.75 10*6/uL Low 4.2-5.4 [facility] Serum creatinine measurement (mass/volume)Ordered By: Yeison Webber on 06-04-2025 Creatinine [Mass/Vol] 0.87 mg/dL 0.70-1.20 [facility] Serum globulin measurementOr dered By: Yeison Webber on 06-04-2025 Globulin (S) [Mass/Vol] 2.1 g/dL Low 2.2-4.2 [facility] Serum glucose measurement (m ass/volume)Ordered By: Yeison Webber on 06-04-2025 Glucose [Mass/Vol] 87 mg/dL 70-99 [facility] Serum or plasma alanine garcia otransferase (ALT) measurementOrdered By: Yeison Webber on 06-04-2025 ALT [Catalytic activity/Vol] 8 U/L <35 [facility] Serum or plasma albumin zach urement (mass/volume)Ordered By: Yeison Webber on 06-04-2025 Albumin [Mass/Vol] 4.0 g/dL 3.5-5.0 [facility] Serum or plasma albumin/glob ulin mass ratioOrdered By: Yeison Webber on 06-04-2025 Albumin/Globulin [Mass ratio] 1.9 {ratio} 0.9-2.4 [facility] Serum or plasma alkaline rai sphatase measurementOrdered By: Yeison Webber on 06-04-2025 ALP [Catalytic activity/Vol] 65 U/L 35-104 [facility] Serum or plasma calcium zach urement (mass/volume)Ordered By: Yeison Webber on 06-04-2025 Calcium [Mass/Vol] 9.1 mg/dL 7.6-11.0 [facility] Serum or plasma urea nitroge n measurement (mass/volume)Ordered By: Yeison Webber on 06-04-2025 Urea nitrogen [Mass/Vol] 14 mg/dL 4-19 [facility] Sodium levelOrdered By: Yeison Webber on 06-04-2025 Sodium [Moles/Vol] 137 mmol/L 133-145 [facility] Squamous epithelial cells de tection in urine sediment by light microscopyOrdered By: Yeison Webber on 06-04-2025 Epithelial cells.squamous LM Ql (Urine sed) 0-5 SEEN /hpf 5-10 [facility] Total proteinOrdered By: Brian Webber on 06-04-2025 Protein [Mass/Vol] 6.1 g/dL 5.9-8.4 [facility] Transitional cells detection in urine sediment by light microscopyOrdered By: Yeison Webber on 06-04-2025 Transitional cells LM Ql (Urine sed) 5-10 SEEN /hpf 0-5 [facility] Urinalysis, Completeon 06-04 BACTERIA 2+ /hpf Normal None Seen [facility] Comment on above: Order Comment: HOLLIE TER SPECIMEN Performed By: #### L 400.0001 #### [facility] [address] [place], [address] EPI,SQUAMOUS 0-5 SEEN Normal 5-10 [facility] Comment on above: Order Comment: HOLLIE TER SPECIMEN Performed By: #### L 400.0001 #### [facility] [address] [place], [address] EPI,TRANSITION 5-10 SEEN Normal 0-5 [facility] Comment on above: Order Comment: HOLLIE TER SPECIMEN Performed By: #### L 400.0001 #### [facility] [address] [place], [address] RBC 25-50 SEEN Normal 0-5 [facility] Comment on above: Order Comment: HOLLIE TER SPECIMEN Performed By: #### L 400.0001 #### [facility] [address] [place], [address] WBC >100 SEEN Normal 0-5 [facility] Comment on above: Order Comment: HOLLIE TER SPECIMEN Performed By: #### L 400.0001 #### [facility] [address] [place], [address] BILIRUBIN URINE Negative Normal Negative [facility] Comment on above: Order Comment: HOLLIE TER SPECIMEN Performed By: #### L 400.0001 #### [facility] [address] [place], [address] Clarity (U) Sl. Cloudy Normal Clear [facility] Comment on above: Order Comment: HOLLIE TER SPECIMEN Performed By: #### L 400.0001 #### [facility] [address] [place], [address] Color (U) Straw Normal Yellow [facility] Comment on above: Order Comment: HOLLIE TER SPECIMEN Performed By: #### L 400.0001 #### [facility] [address] [place], [address] GLUCOSE, UR Normal Normal Normal [facility] Comment on above: Order Comment: HOLLIE TER SPECIMEN Performed By: #### L 400.0001 #### [facility] [address] [place], [address] KETONE UR Negative Normal Negative [facility] Comment on above: Order Comment: HOLLIE TER SPECIMEN Performed By: #### L 400.0001 #### [facility] [address] [place], [address] LEUK ESTERASE 500 /ul Abnormal Negative [facility] Comment on above: Order Comment: HOLLIE TER SPECIMEN Performed By: #### L 400.0001 #### [facility] [address] [place], [address] Nitrite Ql (U) Positive Abnormal Negative [facility] Comment on above: Order Comment: HOLLIE TER SPECIMEN Performed By: #### L 400.0001 #### [facility] [address] [place], [address] OCCULT BLOOD-UR 150 /ul Abnormal Negative [facility] Comment on above: Order Comment: HOLLIE TER SPECIMEN Performed By: #### L 400.0001 #### [facility] [address] [place], [address] pH UR 7.0 Normal 5.0 - 8.0 [facility] Comment on above: Order Comment: HOLLIE TER SPECIMEN Performed By: #### L 400.0001 #### [facility] [address] [place], [address] PROT DIPSTX 100 mg/dl Abnormal Negative [facility] Comment on above: Order Comment: HOLLIE TER SPECIMEN Performed By: #### L 400.0001 #### [facility] [address] [place], [address] SP.GR. DIPSTX 1.010 Normal 1.002-1.030 [facility] Comment on above: Order Comment: HOLLIE TER SPECIMEN Performed By: #### L 400.0001 #### [facility] [address] [place], [address] UROBILI Normal Normal Normal [facility] Comment on above: Order Comment: HOLLIE TER SPECIMEN Performed By: #### L 400.0001 #### [facility] [address] [place], [address] Mucus Ql (Urine sed) 0 SEEN Normal [facility] Comment on above: Order Comment: HOLLIE TER SPECIMEN Performed By: #### L 400.0001 #### [facility] [address] [place], [address] Urine clarityOrdered By: Brian Webber on 06-04-2025 Clarity (U) Sl. Cloudy Clear [facility] Urine color determinationOrd ered By: Yeison Webber on 06-04-2025 Color (U) Straw Yellow [facility] Urine glucose detectionOrder ed By: Yeison Webber on 06-04-2025 Glucose Ql (U) Normal mg/dl Normal [facility] Urine leukocyte esterase det ection by dipstickOrdered By: Yeison Webber on 06-04-2025 Leukocyte esterase Test strip Ql (U) 500 /ul High Negative [facility] Urine pHOrdered By: Yeison Webber on 06-04-2025 pH (U) 7.0 [pH] 5.0 - 8.0 [facility] Urine sediment bacteria coun t by microscopy (number/high power field)Ordered By: Yeison Webber on 06-04-2025 Bacteria LM.HPF (Urine sed) [#/Area] 2 /[HPF] None Seen [facility] Urine specific gravity measu rementOrdered By: Yeison Webber on 06-04-2025 Specific gravity (U) [Rel density] 1.010 1.002-1.030 [facility] Urine urobilinogen measureme ntOrdered By: Yeison Webber on 06-04-2025 Urobilinogen Ql (U) Normal mg/dl Normal [facility] White blood cell (WBC) count Ordered By: Yeison Webber on 06-04-2025 WBC (Bld) [#/Vol] 10.0 10*3/uL 4.4-11.0 [facility] White blood cell countOrdere d By: Yeison Webber on 06-04-2025 White blood cell count >100 SEEN /hpf 0-5 [facility] Urine Cultureon 06-03-2025 URC Identification and sensitivity to follow. GNR Poss Pseudomonas sp [place] Count >100,000 Normal [facility] Comment on above: Performed By: #### M 100.2200 #### [facility] [address] [place], [place], [id number] Absolute lymphocyte countOrd ered By: Maryellen Haile on 06-02-2025 Lymphocytes Auto (Unsp spec) [#/Vol] 3.10 10*3/uL 0.83-4.51 [facility] Absolute neutrophil countOrd ered By: Maryellen Haile on 06-02-2025 Neutrophils (Bld) [#/Vol] 5.2 10*3/uL 2.0-7.7 [facility] Anion gap in Serum or Plasma Ordered By: Maryellen Haile on 06-02-2025 Anion gap [Moles/Vol] 13 mmol/L 5-15 [facility] Automated lymphocyte count a s percentage of total leukocytesOrdered By: Maryellen Haile on 06-02-2025 Lymphocytes/100 WBC Auto (Unsp spec) 32.7 % 19-41 [facility] BUN/creatinine ratioOrdered By: Maryellen Haile on 06-02-2025 Urea nitrogen/Creatinine [Mass ratio] 9.5 mg/mg Low 10-20 [facility] Basophil percentageOrdered B y: Maryellen Haile on 06-02-2025 Basophils/100 WBC (Bld) 0.9 % 0-1 [facility] Bilirubin Test strip Ql (U)O rdered By: Maryellen Haile on 06-02-2025 Bilirubin Ql (U) Negative Negative [facility] Bilirubin, totalOrdered By: Maryellen Haile on 06-02-2025 Bilirubin [Mass/Vol] mg/dL 0.00-1.30 [facility] CBC W/Diff, Automatedon 05-05 Absolute Lymph 3.10 X10 3/uL Normal 0.83-4.51 [facility] Comment on above: Performed By: #### L 500.2500, L100.0100 #### [facility] [address] [place], [address] Absolute Neut 5.2 X10 3/uL Normal 2.0-7.7 [facility] Comment on above: Performed By: #### L 500.2500, L100.0100 #### [facility] [address] [place], [address] Basophils/100 WBC (Bld) 0.9 % Normal 0-1 [facility] Comment on above: Performed By: #### L 500.2500, L100.0100 #### [facility] [address] [place], [address] Eosinophils/100 WBC (Bld) 2.5 % Normal 0-5 [facility] Comment on above: Performed By: #### L 500.2500, L100.0100 #### [facility] [address] [place], [address] Erythrocyte distribution width (RBC) [Ratio] 14.7 % High 11.6-14.6 [facility] Comment on above: Performed By: #### L 500.2500, L100.0100 #### [facility] [address] [place], [address] Hematocrit (Bld) [Volume fraction] 33.2 % Low 37-47 [facility] Comment on above: Performed By: #### L 500.2500, L100.0100 #### [facility] [address] [place], [address] Hemoglobin (Bld) [Mass/Vol] 11.3 g/dL Low 12.0-15.0 [facility] Comment on above: Performed By: #### L 500.2500, L100.0100 #### [facility] [address] [place], [address] IG% 0.300 Normal 0.0-0.9 [facility] Comment on above: Result Comment: IG% - Immature Granulocytes (promyelocytes, myelocytes and metamyelocytes) > 1% indicates that a LEFT SHIFT is Present. Performed By: #### L 500.2500, L100.0100 #### [facility] [address] [place], [address] Lymphocytes/100 WBC (Bld) 32.7 % Normal 19-41 [facility] Comment on above: Performed By: #### L 500.2500, L100.0100 #### [facility] [address] [place], [address] MCH (RBC) [Entitic mass] 32.8 pg High 27.0-32.0 [facility] Comment on above: Performed By: #### L 500.2500, L100.0100 #### [facility] [address] [place], [address] MCHC (RBC) [Mass/Vol] 34.0 g/dL Normal 32-36 [facility] Comment on above: Performed By: #### L 500.2500, L100.0100 #### [facility] [address] [place], [address] MCV (RBC) [Entitic vol] 96.5 fL Normal 81-99 [facility] Comment on above: Performed By: #### L 500.2500, L100.0100 #### [facility] [address] [place], [address] Monocytes/100 WBC (Bld) 9.0 % Normal 0-10 [facility] Comment on above: Performed By: #### L 500.2500, L100.0100 #### [facility] [address] [place], [address] Neutrophils/100 WBC (Bld) 54.6 % Normal 47-70 [facility] Comment on above: Performed By: #### L 500.2500, L100.0100 #### [facility] [address] [place], [address] Nucleated RBC (Bld) [#/Vol] 0 10*3/uL Normal 0-5 [facility] Comment on above: Performed By: #### L 500.2500, L100.0100 #### [facility] [address] [place], [address] Platelet mean volume (Bld) [Entitic vol] 9.5 fL Normal 6.2-12.0 [facility] Comment on above: Performed By: #### L 500.2500, L100.0100 #### [facility] [address] [place], [address] Platelets (Bld) [#/Vol] 333 10*3/uL Normal 150-450 [facility] Comment on above: Performed By: #### L 500.2500, L100.0100 #### [facility] [address] [place], [address] RBC (Bld) [#/Vol] 3.44 10*6/uL Low 4.2-5.4 [facility] Comment on above: Performed By: #### L 500.2500, L100.0100 #### [facility] [address] [place], [address] RDW SD 51.6 fl High 35.1-43.9 [facility] Comment on above: Performed By: #### L 500.2500, L100.0100 #### [facility] [address] [place], [address] WBC (Bld) [#/Vol] 9.5 10*3/uL Normal 4.4-11.0 [facility] Comment on above: Performed By: #### L 500.2500, L100.0100 #### [facility] [address] [place], [address] Carbon dioxide, total [Moles /volume] in Central venous bloodOrdered By: Maryellen Haile on 06-02-2025 CO2 [Moles/Vol] 22.2 mmol/L 21.0-32.0 [facility] Chloride assayOrdered By: Rajesh Haile on 06-02-2025 Chloride [Moles/Vol] 102 mmol/L 98-108 [facility] Comprehensive Metabolic Prof ilon 06-02-2025 Albumin [Mass/Vol] 3.9 g/dL Normal 3.5-5.0 [facility] Comment on above: Performed By: #### L 500.2500, L100.0100 #### [facility] [address] [place], [address] Albumin/Globulin [Mass ratio] 1.8 {ratio} Normal 0.9-2.4 [facility] Comment on above: Performed By: #### L 500.2500, L100.0100 #### [facility] [address] [place], [address] ALK PHOS 64 U/L Normal 35-104 [facility] Comment on above: Performed By: #### L 500.2500, L100.0100 #### [facility] [address] [place], [address] ALT [Catalytic activity/Vol] 11 U/L Normal <=34 [facility] Comment on above: Performed By: #### L 500.2500, L100.0100 #### [facility] [address] [place], [address] AST [Catalytic activity/Vol] 15 U/L Normal <=31 [facility] Comment on above: Performed By: #### L 500.2500, L100.0100 #### [facility] [address] [place], [address] BUN/CRE 9.5 RATIO Low 10-20 [facility] Comment on above: Performed By: #### L 500.2500, L100.0100 #### [facility] [address] [place], [address] Calcium [Mass/Vol] 9.0 mg/dL Normal 7.6-11.0 [facility] Comment on above: Performed By: #### L 500.2500, L100.0100 #### [facility] [address] [place], [address] Chloride [Moles/Vol] 102 mmol/L Normal 98-108 [facility] Comment on above: Performed By: #### L 500.2500, L100.0100 #### [facility] [address] [place], [address] CO2 [Moles/Vol] 22.2 mmol/L Normal 21.0-32.0 [facility] Comment on above: Performed By: #### L 500.2500, L100.0100 #### [facility] [address] [place], [address] Creatinine [Mass/Vol] 1.01 mg/dL Normal 0.70-1.20 [facility] Comment on above: Performed By: #### L 500.2500, L100.0100 #### [facility] [address] [place], [address] ECRCL 66.39 ml/min Normal 50-250 [facility] Comment on above: Performed By: #### L 500.2500, L100.0100 #### [facility] [address] [place], [address] GAP 13 Normal 5-15 [facility] Comment on above: Performed By: #### L 500.2500, L100.0100 #### [facility] [address] [place], [address] GFR/1.73 sq M.predicted among non-blacks MDRD (S/P/Bld) [Vol rate/Area] 74 mL/min/{1.73_m2} Normal >60 [facility] Comment on above: Result Comment: mL/m in/1.73m2 CKD-EPI Creatinine Equation (2020) Performed By: #### L 500.2500, L100.0100 #### [facility] [address] [place], [address] Globulin (S) [Mass/Vol] 2.2 g/dL Normal 2.2-4.2 [facility] Comment on above: Performed By: #### L 500.2500, L100.0100 #### [facility] [address] [place], [address] Glucose [Mass/Vol] 110 mg/dL High 70-99 [facility] Comment on above: Performed By: #### L 500.2500, L100.0100 #### [facility] [address] [place], [address] Potassium [Moles/Vol] 3.8 mmol/L Normal 3.3-5.1 [facility] Comment on above: Performed By: #### L 500.2500, L100.0100 #### [facility] [address] [place], [address] Sodium [Moles/Vol] 138 mmol/L Normal 133-145 [facility] Comment on above: Performed By: #### L 500.2500, L100.0100 #### [facility] [address] [place], [address] T BILI < 0.15 Normal 0.00-1.30 [facility] Comment on above: Performed By: #### L 500.2500, L100.0100 #### [facility] [address] [place], [address] T PROT 6.0 g/dL Normal 5.9-8.4 [facility] Comment on above: Performed By: #### L 500.2500, L100.0100 #### [facility] [address] [place], [address] Urea nitrogen [Mass/Vol] 10 mg/dL Normal 4-19 [facility] Comment on above: Performed By: #### L 500.2500, L100.0100 #### [facility] [address] 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 She has chronic pain and intermittent nausea with this. States she has chronic left flank pain and takes 10 mg of oxycodone as needed (2 5 mg). States he is having increased pain today. The pain is in her left flank and radiates up her back and around to her abdomen. Her last dose of pain medicine was at 6 AM. She then developed associated nausea and vomiting. She has had this before but her symptoms are more severe than normal. She denies any associated fever. Denies any change in her urine output. She had been following at [place] with Dr. Sanders but states that she is getting established with a doctor at [facility]. She is not established yet. She denies any blood in her urine. No other complaints or concerns reported at this time. [facility] Medical History Nephrostomy present Kidney failure [...] ory mg-trimethoprim 160 mg tablet (Bactrim DS) sulfamethoxazole 800 1 tab PO BID 7 days #14 tabs 06/02 Unknown Rx mg-trimethoprim 160 mg tablet (Bactrim DS) Allergy/AdvReac Type Severity Reaction Status Date / Time haloperidol (From Haldol) Allergy Angioedema Verified 06/01/25 23:55 Penicillins (PCN) Allergy Hives Verified 06/01/25 23:55 Social History Smoking Status: Current every day smoker tobacco type: cigarettes and e-cigarettes ROS ROS ED Constitutional Constitutional ED: Denies chills or fever(s) ENT ENT ED: Denies sore throat Cardiovascular Cardiovascular: Denies chest pain Respiratory/Chest Respiratory/Chest: Denies cough Gastrointestinal Gastrointestinal: Reports abdominal pain, nausea and vomiting Genitourinary Genitourinary ED: Reports other Details: Left side nephrostomy tube Musculoskeletal Musculoskeletal: Reports back pain Hematologic/Lymphatic Hematologic/Lymphatic: Denies easy bleeding or easy bruising EXAM Physical Exam Const Vital Signs: 06/01/25 23:55 06/02/25 00:56 06/02/25 02:54 Temperature 98.9 F 98.6 F 98.6 F Temperature Source Oral Oral Pulse Rate 88 88 75 Respiratory Rate 16 16 18 Blood Pressure 131/114 H 127/95 H 118/75 Blood Pressure Mean 119 105 89 Pulse Ox 97 97 98 Oxygen Delivery Method Room Air Room Air Positive well nourished and well developed General Appearance ED: well developed and NAD HEENT Reports moist mucous membranes Neck supple Chest Wall inspection of chest normal Resp normal respiratory effort Cardio regular rate and regular rhythm GI non-distended Inspection: Negative for abdominal distention Auscultation: normoactive bowel sounds Palpation: soft and tender suprapubic Back/Spine Back/Spine Narrative: Left-sided nephrostomy tube in place, no surrounding erythema from the tube site General Back: CVA tenderness left Extremity normal to inspection Neuro oriented x3 Sensorium / Orientation: alert Psych mental status grossly normal Skin no rashes or lesions noted and no wounds MDM MDM MDM Narrative Medical decision making narrative: Patient valuated for nausea, vomiting and left-sided flank pain as well as abdominal pain. 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 Patient was seen in our ER 04/09/2025 for similar presentation. Differential includes pyelonephritis, chronic pain exacerbation, dehydration, LOAN, electrolyte derangement. She is having good urine output from her nephrostomy tubes lower suspicion for malpositioning of it. Patient given IV morphine and Zofran for symptom control. CBC, BMP and urinalysis both from voided as well as nephrostomy obtained. CBC normal with a normal white blood cell co (more content not included)... Normal [facility] Eosinophil percentageOrdered By: Maryellen Haile on 06-02-2025 Eosinophils/100 WBC (Bld) 2.5 % 0-5 [facility] Erythrocyte distribution wid th ratioOrdered By: Maryellen Haile on 06-02-2025 Erythrocyte distribution width (RBC) [Ratio] 14.7 % High 11.6-14.6 [facility] Erythrocyte distribution wid th standard deviationOrdered By: Maryellen Haile on 06-02-2025 Erythrocyte distribution width (RBC) [Ratio] 51.6 fl High 35.1-43.9 [facility] Glomerular filtration rate ( GFR) estimation/1.73 sq m using serum, plasma, or whole bOrdered By: Maryellen Haile on 06-02-2025 GFR/1.73 sq M.predicted among non-blacks MDRD (S/P/Bld) [Vol rate/Area] 74 mL/min/{1.73_m2} >60 [facility] Comment on above: mL/min/1.73m2 CKD-EP I Creatinine Equation (2020) Hematocrit Auto (Bld) [Volum e fraction]Ordered By: Maryellen Haile on 06-02-2025 Hematocrit (Bld) [Volume fraction] 33.2 % Low 37-47 [facility] Hemoglobin measurementOrdere d By: Maryellen Haile on 06-02-2025 Hemoglobin (Bld) [Mass/Vol] 11.3 g/dL Low 12.0-15.0 [facility] Immature granulocytes/100 WB C Auto (Bld)Ordered By: Maryellen Haile on 06-02-2025 Immature granulocytes/100 WBC (Bld) 0.300 % 0.0-0.9 [facility] Comment on above: IG% - Immature Granu locytes (promyelocytes, myelocytes and metamyelocytes) > 1% indicates that a LEFT SHIFT is Present. Ketones Test strip Ql (U)Ord ered By: Maryellen Haile on 06-02-2025 Ketones Ql (U) Negative Negative [facility] - Chemistry and C hemistry - challengeOrdered By: Maryellen Haile on 06-02-2025 AST [Catalytic activity/Vol] 15 U/L <32 [facility] MCV (mean corpuscular volume ) determinationOrdered By: Maryellen Haile 06-02-2025 MCV (RBC) [Entitic vol] 96.5 fL 81-99 [facility] Mean corpuscular hemoglobin (MCH) determinationOrdered By: Maryellen Haile on 06-02-2025 MCH (RBC) [Entitic mass] 32.8 pg High 27.0-32.0 [facility] Mean corpuscular hemoglobin concentration (MCHC) determinationOrdered By: Maryellen Haile on 06-02-2025 MCHC (RBC) [Mass/Vol] 34.0 g/dL 32-36 [facility] Mean platelet volume determi nationOrdered By: Maryellen Haile on 06-02-2025 Platelet mean volume (Bld) [Entitic vol] 9.5 fL 6.2-12.0 [facility] Microscopic analysis of urin e for red blood cells (RBC)Ordered By: Maryellen Haile on 06-02-2025 Microscopic analysis of urine for red blood cells (RBC) 0 SEEN /hpf 0-5 [facility] Monocyte percentageOrdered B y: Maryellen Haile on 06-02-2025 Monocytes/100 WBC (Bld) 9.0 % 0-10 [facility] Mucus LM Ql (Urine sed)Order ed By: Maryellen Haile on 06-02-2025 Mucus Ql (Urine sed) 0 SEEN /hpf [facility] Neutrophil percentageOrdered By: Maryellen Haile on 06-02-2025 Neutrophils/100 WBC (Bld) 54.6 % 47-70 [facility] Nitrite Test strip Ql (U)Ord ered By: Maryellen Haile on 06-02-2025 Nitrite Ql (U) Negative Negative [facility] Nucleated red blood cell per centageOrdered By: Maryellen Haile on 06-02-2025 Nucleated RBC/100 WBC (Bld) [Ratio] 0 % 0-5 [facility] Platelet countOrdered By: Rajesh Haile on 06-02-2025 Platelets (Bld) [#/Vol] 333 10*3/uL 150-450 [facility] Potassium measurement (mass/ volume)Ordered By: Maryellen Haile on 06-02-2025 Potassium (Unsp spec) [Mass/Vol] 3.8 mmol/L 3.3-5.1 [facility] ,Urineon 06-02-2025 Beta HCG ( test) Ql (U) Negative Normal [facility] Comment on above: Result Comment: Very dilute urine specimens, as indicated by a low specific gravity, may not contain leasing representative levels of hCG. If is still suspected, a first morning urine specimen should be collected 48 hours later and tested. Performed By: #### L 500.2500, L100.0100 #### [facility] [address] [place], [address] Protein Test strip Ql (U)Ord ered By: Maryellen Haile on 06-02-2025 Protein Ql (U) 15 mg/dl High Negative [facility] RBC Auto (Bld) [#/Vol]Ordere d By: Maryellen Haile on 06-02-2025 RBC (Bld) [#/Vol] 3.44 10*6/uL Low 4.2-5.4 [facility] Serum creatinine measurement (mass/volume)Ordered By: Maryellen Haile on 06-02-2025 Creatinine [Mass/Vol] 1.01 mg/dL 0.70-1.20 [facility] Serum globulin measurementOr dered By: Maryellen Haile on 06-02-2025 Globulin (S) [Mass/Vol] 2.2 g/dL 2.2-4.2 [facility] Serum glucose measurement (m ass/volume)Ordered By: Maryellen Haile on 06-02-2025 Glucose [Mass/Vol] 110 mg/dL High 70-99 [facility] Serum or plasma alanine garcia otransferase (ALT) measurementOrdered By: Maryellen Haile on 06-02-2025 ALT [Catalytic activity/Vol] 11 U/L <35 [facility] Serum or plasma albumin zach urement (mass/volume)Ordered By: Maryellen Haile on 06-02-2025 Albumin [Mass/Vol] 3.9 g/dL 3.5-5.0 [facility] Serum or plasma albumin/glob ulin mass ratioOrdered By: Maryellen Haile 06-02-2025 Albumin/Globulin [Mass ratio] 1.8 {ratio} 0.9-2.4 [facility] Serum or plasma alkaline rai sphatase measurementOrdered By: Maryellen Haile on 06-02-2025 ALP [Catalytic activity/Vol] 64 U/L 35-104 [facility] Serum or plasma calcium zach urement (mass/volume)Ordered By: Maryellen Haile 06-02-2025 Calcium [Mass/Vol] 9.0 mg/dL 7.6-11.0 [facility] Serum or plasma urea nitroge n measurement (mass/volume)Ordered By: Maryellen Haile on 06-02-2025 Urea nitrogen [Mass/Vol] 10 mg/dL 4-19 [facility] Sodium levelOrdered By: Joni Haile on 06-02-2025 Sodium [Moles/Vol] 138 mmol/L 133-145 [facility] Squamous epithelial cells de tection in urine sediment by light microscopyOrdered By: Maryellen Haile on 06-02-2025 Epithelial cells.squamous LM Ql (Urine sed) 0 SEEN /hpf 03-12 [facility] Total proteinOrdered By: Roseanne Haile on 06-02-2025 Protein [Mass/Vol] 6.0 g/dL 5.9-8.4 [facility] Urinalysis, Completeon 06-02 BACTERIA 0 SEEN Normal None Seen [facility] Comment on above: Order Comment: YOSELIN CTOR TO SPECIFY Performed By: #### L 500.2500, L100.0100 #### [facility] [address] [place], [address] EPI,SQUAMOUS 0 SEEN Normal 03-12 [facility] Comment on above: Order Comment: YOSELIN CTOR TO SPECIFY Performed By: #### L 500.2500, L100.0100 #### [facility] [address] [place], [address] Mucus Ql (Urine sed) 0 SEEN Normal [facility] Comment on above: Order Comment: YOSELIN CTOR TO SPECIFY Performed By: #### L 500.2500, L100.0100 #### [facility] [address] [place], [address] RBC 0 SEEN Normal 0-5 [facility] Comment on above: Order Comment: YOSELIN CTOR TO SPECIFY Performed By: #### L 500.2500, L100.0100 #### [facility] [address] [place], [address] WBC 0 SEEN Normal 0-5 [facility] Comment on above: Order Comment: YOSELIN CTOR TO SPECIFY Performed By: #### L 500.2500, L100.0100 #### [facility] [address] [place], [address] BACTERIA 1+ /hpf Normal None Seen [facility] Comment on above: Order Comment: YOSELIN CTOR TO SPECIFY Performed By: #### L 500.2500, L100.0100 #### [facility] [address] [place], [address] WBC 0-5 SEEN Normal 0-5 [facility] Comment on above: Order Comment: YOSELIN CTOR TO SPECIFY Performed By: #### L 500.2500, L100.0100 #### [facility] [address] [place], [address] EPI,SQUAMOUS 0 SEEN Normal 5-10 [facility] Comment on above: Order Comment: YOSELIN CTOR TO SPECIFY Performed By: #### L 500.2500, L100.0100 #### [facility] [address] [place], [address] Mucus Ql (Urine sed) 0 SEEN Normal [facility] Comment on above: Order Comment: YOSELIN CTOR TO SPECIFY Performed By: #### L 500.2500, L100.0100 #### [facility] [address] [place], [address] RBC 0 SEEN Normal 0-5 [facility] Comment on above: Order Comment: YOSELIN CTOR TO SPECIFY Performed By: #### L 500.2500, L100.0100 #### [facility] [address] [place], [address] Urine clarityOrdered By: Roseanne Haile on 06-02-2025 Clarity (U) Clear Clear [facility] Urine color determinationOrd ered By: Maryellen Haile on 06-02-2025 Color (U) Yellow Yellow [facility] Urine glucose detectionOrder ed By: Maryellen Haile on 06-02-2025 Glucose Ql (U) Normal mg/dl Normal [facility] Urine leukocyte esterase det ection by dipstickOrdered By: Maryellen Haile on 06-02-2025 Leukocyte esterase Test strip Ql (U) Negative Negative [facility] Urine pHOrdered By: Maryellen alarcon on 06-02-2025 pH (U) 6.0 [pH] 5.0 - 8.0 [facility] Urine testOrdered By: Maryellen Haile on 06-02-2025 HCG ( test) Ql (U) Negative [facility] Comment on above: Very dilute urine sp ecimens, as indicated by a low specificgravity, may not contain leasing representative levels of hCG. If is still suspected, a first morning urinespecimen should be collected 48 hours later and tested. Urine sediment bacteria coun t by microscopy (number/high power field)Ordered By: Maryellen Haile on 06-02-2025 Bacteria LM.HPF (Urine sed) [#/Area] 0 /[HPF] None Seen [facility] Urine specific gravity measu rementOrdered By: Maryellen Haile on 06-02-2025 Specific gravity (U) [Rel density] 1.015 1.002-1.030 [facility] Urine urobilinogen measureme ntOrdered By: Maryellen Haile on 06-02-2025 Urobilinogen Ql (U) Normal mg/dl Normal [facility] White blood cell (WBC) count Ordered By: Maryellen Haile on 06-02-2025 WBC (Bld) [#/Vol] 9.5 10*3/uL 4.4-11.0 [facility] White blood cell countOrdere d By: Maryellen Haile on 06-02-2025 White blood cell count 0 SEEN /hpf 0-5 [facility] CBC + DIFFon 06-01-2025 Baso # 0.03 x10EE3/UL Normal 0.00 - 0.10 [facility] Comment on above: Performed By: #### 2 [id number] ####[facility],[address] [place] [address] Basophils/100 WBC (Bld) 0.4 % Normal 0.0 - 2.0 [facility] Comment on above: Performed By: #### 2 [id number] ####[place] [address] CBC + DIFF Normal [facility] Comment on above: Result Comment: CBC- COMPLETE BLOOD COUNT Performed By: #### 2 [id number] ####[facility],[address] [place] [address] EO # 0.20 x10EE3/UL Normal 0.00 - 0.50 [facility] Comment on above: Performed By: #### 2 [id number] ####[place] [address] Eosinophils/100 WBC (Bld) 2.3 % Normal 0.0 - 7.0 [facility] Comment on above: Performed By: #### 2 [id number] ####[place] [address] Erythrocyte distribution width (RBC) [Ratio] 14.1 % Normal 12.0 - 15.6 [facility] Comment on above: Performed By: #### 2 [id number] ####[place] [address] Hematocrit (Bld) [Volume fraction] 37.2 % Normal 34.0 - 46.0 [facility] Comment on above: Performed By: #### 2 [id number] ####[facility],[address] [place] [address] Hemoglobin (Bld) [Mass/Vol] 12.7 g/dL Normal 12.0 - 16.0 [facility] Comment on above: Performed By: #### 2 [id number] ####[facility],[address] [place] [address] Lymph # 1.96 x10EE3/UL Normal 0.80 - 2.80 [facility] Comment on above: Performed By: #### 2 [id number] ####[facility] [place] [address] Lymphocytes/100 WBC (Bld) 21.8 % Normal 20.0 - 45.0 [facility] Comment on above: Performed By: #### 2 [id number] ####[facility],[address] [place] [address] MANUAL DIFF N/A Normal [facility] Comment on above: Performed By: #### 2 [id number] ####[facility],[address] [place] [address] MCH (RBC) [Entitic mass] 33 pg Normal 27 - 33 [facility] Comment on above: Performed By: #### 2 38298 ####[facility],[address] [place] [address] MCHC 34 X10 3 Normal 32 - 36 [facility] Comment on above: Performed By: #### 2 09644 ####[facility],[address] [place] [address] MCV (RBC) [Entitic vol] 97 fL Normal 80 - 99 [facility] Comment on above: Performed By: #### 2 72420 ####[facility],[address] [place] [address] [place] # 0.86 x10EE3/UL Normal 0.20 - 1.00 [facility] Comment on above: Performed By: #### 2 55958 ####[facility],[address] [place] [address] MONOS % 9.6 % Normal 0.0 - 10.0 [facility] Comment on above: Performed By: #### 2 94932 ####[facility],[address] [place] [address] Morphology Efra (Bld) [Interp] N/A Normal [facility] Comment on above: Performed By: #### 2 21294 ####[facility],[address],[place] [address] Neut # 5.92 x10EE3/UL Normal 1.50 - 7.10 [facility] Comment on above: Performed By: #### 2 39590 ####[facility],[address] [place] [address] 93112 Neutrophils/100 WBC (Bld) 65.9 % Normal 46.0 - 76.0 [facility] Comment on above: Performed By: #### 2 96913 ####[facility],[address] [place] [address] 41044 PLATELET 388 x10EE3/UL Normal 150 - 450 [facility] Comment on above: Performed By: #### 2 74651 ####[facility],[address] [place] [address] 13739 Platelet mean volume (Bld) [Entitic vol] 7.3 fL Normal 6.6 - 10.5 [facility] Comment on above: Result Comment: AUTO MATED DIFFERENTIAL Performed By: #### 2 04845 ####[facility],[address] [place] [address] 50935 RBC 3.84 x 10EE6/UL Low 4.10 - 5.30 [facility] Comment on above: Performed By: #### 2 38705 ####[facility],[address] [place] [address] 50406 WBC 9.0 x 10EE3/UL Normal 4.5 - 10.8 [facility] Comment on above: Performed By: #### 2 92694 ####[facility],[address] [place] [address] 24414 CBLon 06-01-2025 CBL Normal [facility] CMP with eGFRon 06-01-2025 AGE 34 years Normal [facility] Comment on above: Performed By: #### 2 52442 ####[facility],[address] [place] [address] 97199 Albumin [Mass/Vol] 3.7 g/dL Normal 3.4 - 5.0 [facility] Comment on above: Performed By: #### 2 18941 ####[facility],[address] [place] [address] 29450 Albumin/Globulin [Mass ratio] 1.2 {ratio} Normal 0.9 - 1.6 [facility] Comment on above: Performed By: #### 2 35390 ####[facility],[address] [place] [address] 77760 ALK PHOS 68 U/L Normal 46 - 116 [facility] Comment on above: Performed By: #### 2 00975 ####[facility],[address] [place] [address] 09544 ALT [Catalytic activity/Vol] 22 U/L Normal 16 - 63 [facility] Comment on above: Performed By: #### 2 94858 ####[facility],[address] [place] [address] 46526 Anion gap [Moles/Vol] 13 mmol/L Normal 10 - 20 [facility] Comment on above: Performed By: #### 2 03071 ####[facility],[address] [place] [address] 31798 AST [Catalytic activity/Vol] 13 U/L Normal 13 - 39 [facility] Comment on above: Performed By: #### 2 52068 ####[facility],[address] [place] [address] 47012 B/C RATIO 12 ratio Normal 0 - 30 [facility] Comment on above: Performed By: #### 2 79875 ####[facility],[address] [place] [address] 92365 Bilirubin [Mass/Vol] 0.2 mg/dL Normal 0.2 - 1.0 [facility] Comment on above: Performed By: #### 2 97044 ####[facility],[address] [place] [address] 89042 Calcium [Mass/Vol] 9.2 mg/dL Normal 8.5 - 10.1 [facility] Comment on above: Performed By: #### 2 26433 ####[facility],[address] [place] [address] 35241 Chloride [Moles/Vol] 102 mmol/L Normal 98 - 107 [facility] Comment on above: Performed By: #### 2 08413 ####[facility],[address] [place] [address] 19026 CMP with eGFR Normal [facility] Comment on above: Result Comment: COMP REHENSIVE METABOLIC PANEL Performed By: #### 2 16183 ####[facility],[address] [place] [address] 28830 CO2 [Moles/Vol] 30.0 mmol/L Normal 21.0 - 32.0 [facility] Comment on above: Performed By: #### 2 17845 ####[facility],[address] [place] [address] 10531 Creatinine [Mass/Vol] 1.05 mg/dL High 0.55 - 1.02 [facility] Comment on above: Performed By: #### 2 57706 ####[facility],[address] [place] [address] 74953 eGFR 59 ML/MINUTE Low 60 - 999 [facility] Comment on above: Performed By: #### 2 88719 ####[facility],[address] [place] [address] 22073 GFR/1.73 sq M.predicted among non-blacks MDRD (S/P/Bld) [Vol rate/Area] mL/min/{1.73_m2} Normal 60 - 999 [facility] Comment on above: Result Comment: ACCO RDING TO THE NATIONAL KIDNEY DISEASE EDUCATION PROGRAM(NKDE), A NORMAL eGFRIS A VALUE GREATER THAN OR EQUAL TO 60 ML/MIN/1.73 SQ METERS.CHRONIC KIDNEY DISEASE: <60mL/MIN/1.73 SQ METERSKIDNEY FAILURE: <15mL/MIN/1.73 SQ METERSTHIS TEST SHOULD ONLY BE USED FOR PATIENTS 18 YEARS OF AGE AND OLDER. Performed By: #### 2 65945 ####[facility],[address] [place] [address] 35959 Globulin (S) [Mass/Vol] 3.2 g/dL Normal 1.5 - 3.8 [facility] Comment on above: Performed By: #### 2 38460 ####[facility],[address] [place] [address] 80958 Glucose [Mass/Vol] 91 mg/dL Normal 74 - 106 [facility] Comment on above: Performed By: #### 2 24699 ####[facility],[address] [place] [address] 04581 Potassium [Moles/Vol] 3.9 mmol/L Normal 3.5 - 5.1 [facility] Comment on above: Performed By: #### 2 34816 ####[facility],[address] [place] [address] 07435 Protein [Mass/Vol] 6.9 g/dL Normal 6.4 - 8.2 [facility] Comment on above: Performed By: #### 2 29417 ####[facility],[address] [place] [address] 93819 Sodium [Moles/Vol] 141 mmol/L Normal 136 - 145 [facility] Comment on above: Performed By: #### 2 17507 ####[facility],[address] [place] [address] 44553 Urea nitrogen [Mass/Vol] 13 mg/dL Normal 7 - 18 [facility] Comment on above: Performed By: #### 2 59697 ####[facility],[address] [place] [address] 19146 ED MED ADMINISTRATION DETAIL on 06-01-2025 ED MED ADMINISTRATION DETAIL Normal [facility] ED NURSES CLINICAL NOTEon ED NURSES CLINICAL NOTE Normal [facility] ED ORDER SHEET (CPOE ONLY)on 06-01-2025 ED ORDER SHEET (CPOE ONLY) Normal [facility] ED PHYSICIAN CLINICAL REPORT on 06-01-2025 ED PHYSICIAN CLINICAL REPORT Normal [facility] ED SUPER BILLon 06-01-2025 ED SUPER BILL Normal [facility] ED VISIT SUMMARYon ED VISIT SUMMARY Normal [facility] ED VITALS FLOW SHEETon 06-01 ED VITALS FLOW SHEET Normal [facility] LACTATEon 06-01-2025 Lactate [Moles/Vol] 0.7 mmol/L Normal 0.4 - 2.0 [facility] Comment on above: Performed By: #### 2 14332 ####[facility],[address] [place] [address] 94423 PREG SERUM QUANTon HCG QUANTITATIVE 3 Normal [facility] Comment on above: Result Comment: Refe [...] 3RD TRIMESTER 1000-50,000 Performed By: #### 2 76171 ####[facility],[address] [place] [address] 91287 SERUM QUALon 06-01 EXTERNAL QC DONE? YES Normal [facility] Comment on above: Performed By: #### 2 04159 ####[facility],[address] [place] [address] 73992 INTERNAL QC PASS Normal [facility] Comment on above: Performed By: #### 2 80105 ####[facility],[address] [place] [address] 88266 SER Positive Normal NEGATIVE [facility] Comment on above: Result Comment: A FA INT LINE APPEARED ON TEST LINE, BUT THQUANTITATIVE RESULT WAS ONLY 3 MIU/ML. Performed By: #### 2 74368 ####[facility],[address] [place] [address] 44963 TROPONINon 06-01-2025 HS TROPONIN <4.0 Normal 0.0 - 51.4 [facility] Comment on above: Performed By: #### 2 99204 ####[facility],[address] [place] [address] 89602 .Auto Diffon 05-30-2025 Basophil, Absolute 0.1 10 3/mcL Normal 0.0-0.3 [facility] Comment on above: Performed By: #### G FR, ADIFF, ANEU, CBC, BMP ####[address] [address] Basophils/100 WBC (Bld) 0.9 % Normal 0.0-2.5 [facility] Comment on above: Performed By: #### G FR, ADIFF, ANEU, CBC, BMP ####[address] [address] Eosinophil, Absolute 0.3 10 3/mcL Normal 0.0-0.7 [facility] Comment on above: Performed By: #### G FR, ADIFF, ANEU, CBC, BMP ####[address] [address] Eosinophils/100 WBC (Bld) 3.9 % Normal 0.0-6.0 [facility] Comment on above: Performed By: #### G FR, ADIFF, ANEU, CBC, BMP ####[address] [address] Lymphocyte, Absolute 2.2 10 3/mcL Normal 0.9-4.3 [facility] Comment on above: Performed By: #### G FR, ADIFF, ANEU, CBC, BMP ####[address] [address] Lymphocytes/100 WBC (Bld) 27.4 % Normal 20.0-40.0 [facility] Comment on above: Performed By: #### G FR, ADIFF, ANEU, CBC, BMP ####[address] [address] Monocyte, Absolute 0.9 10 3/mcL Normal 0.1-1.4 [facility] Comment on above: Performed By: #### G FR, ADIFF, ANEU, CBC, BMP ####[address] [address] Monocytes/100 WBC (Bld) 11.1 % Normal 2.0-13.0 [facility] Comment on above: Performed By: #### G FR, ADIFF, ANEU, CBC, BMP ####[address] [address] Neutrophils/100 WBC (Bld) 56.7 % Normal 50.0-75.0 [facility] Comment on above: Performed By: #### G FR, ADIFF, ANEU, CBC, BMP ####[place] [address] .GFRon 05-30-2025 Estimated Glomerular Filtration Rate 91 ml/min/1.73sqm Normal [facility] Comment on above: Result Comment: [...] #### G FR, ADIFF, ANEU, CBC, BMP ####[address] [address] .NEUABSon 05-30-2025 Neutrophil, Absolute 4.5 10 3/mcL Normal 2.3-8.1 [facility] Comment on above: Performed By: #### G FR, ADIFF, ANEU, CBC, BMP ####[place] [address] BMPon 05-30-2025 BUN/Creatinine Ratio 10.6 ratio Normal 10.0-22.0 [facility] Comment on above: Performed By: #### G FR, ADIFF, ANEU, CBC, BMP ####[address] [address] Calcium [Mass/Vol] 9.1 mg/dL Normal 8.7-10.4 [facility] Comment on above: Performed By: #### G FR, ADIFF, ANEU, CBC, BMP ####[place] [address] Chloride [Moles/Vol] 111 mmol/L High 98-110 [facility] Comment on above: Performed By: #### G FR, ADIFF, ANEU, CBC, BMP ####[address] [address] CO2 [Moles/Vol] 26 mmol/L Normal 22-32 [facility] Comment on above: Performed By: #### G FR, ADIFF, ANEU, CBC, BMP ####[place] [address] Creatinine [Mass/Vol] 0.85 mg/dL Normal 0.50-1.20 [facility] Comment on above: Result Comment: Test ing performed on [employer] analyzer using enzymatic creatinine methodology. Performed By: #### G FR, ADIFF, ANEU, CBC, BMP ####[address] [address] Electrolyte Balance 6.0 mEq/L Normal 4.0-15.0 [facility] Comment on above: Performed By: #### G FR, ADIFF, ANEU, CBC, BMP ####[place] [id number] Glucose [Mass/Vol] 90 mg/dL Normal 70-110 [facility] Comment on above: Performed By: #### G FR, ADIFF, ANEU, CBC, BMP ####[place] [address] Potassium [Moles/Vol] 4.2 mmol/L Normal 3.5-5.0 [facility] Comment on above: Performed By: #### G FR, ADIFF, ANEU, CBC, BMP ####[place] [address] Sodium [Moles/Vol] 143 mmol/L Normal 136-145 [facility] Comment on above: Performed By: #### G FR, ADIFF, ANEU, CBC, BMP ####[place] [address] Urea nitrogen [Mass/Vol] 9.0 mg/dL Normal 8.0-22.0 [facility] Comment on above: Performed By: #### G FR, ADIFF, ANEU, CBC, BMP ####[place] [address] CBCon 05-30-2025 Erythrocyte distribution width (RBC) [Ratio] 15.1 % Normal 11.5-15.5 [facility] Comment on above: Performed By: #### G FR, ADIFF, ANEU, CBC, BMP ####[place] [address] Hematocrit (Bld) [Volume fraction] 38.6 % Normal 34.0-46.0 [facility] Comment on above: Performed By: #### G FR, ADIFF, ANEU, CBC, BMP ####[place] [address] Hgb 13.0 G/dL Normal 12.0-16.0 [facility] Comment on above: Performed By: #### G FR, ADIFF, ANEU, CBC, BMP ####[place] [address] MCH (RBC) [Entitic mass] 33.0 pg Normal 27.0-33.0 [facility] Comment on above: Performed By: #### G FR, ADIFF, ANEU, CBC, BMP ####[place] [address] MCHC 33.7 G/dL Normal 32.0-36.0 [facility] Comment on above: Performed By: #### G FR, ADIFF, ANEU, CBC, BMP ####[place] [address] MCV (RBC) [Entitic vol] 97.8 fL Normal 80.0-99.0 [facility] Comment on above: Performed By: #### G FR, ADIFF, ANEU, CBC, BMP ####[place] [address] Platelet 310 10 3/mcL Normal 150-450 [facility] Comment on above: Performed By: #### G FR, ADIFF, ANEU, CBC, BMP ####[place] [address] Platelet mean volume (Bld) [Entitic vol] 7.9 fL Normal 6.6-10.5 [facility] Comment on above: Performed By: #### G FR, ADIFF, ANEU, CBC, BMP ####[place] [address] RBC 3.95 10 6/mcL Low 4.10-5.30 [facility] Comment on above: Performed By: #### G FR, ADIFF, ANEU, CBC, BMP ####[place] [address] WBC 7.9 10 3/mcL Normal 4.5-10.8 [facility] Comment on above: Performed By: #### G FR, ADIFF, ANEU, CBC, BMP ####[place] [address] LABORATORYOrdered By: SYSTEM SYSTEM on 05-30-2025 Basophils [...] 0.85 mg/dL Normal 0.50 - 1.20 mg/dL AH ADM SS Comment on above: Interpretive Data: T esting performed on [employer] analyzer using enzymatic creatinine methodology. Electrolyte Balance [...] 11.1 % Normal 2.0 - 13.0 % Workflow [...] Basophil, Absolute 0.1 10 3/mcL Normal 0.0-0.3 [facility] Comment on above: Performed By: #### C BC, ADIFF, BMP, GFR, ANEU ####[address] [address] Basophils/100 WBC (Bld) 1.0 % Normal 0.0-2.5 [facility] Comment on above: Performed By: #### C BC, ADIFF, BMP, GFR, ANEU ####[address] [address] Eosinophil, Absolute 0.2 10 3/mcL Normal 0.0-0.7 [facility] Comment on above: Performed By: #### C BC, ADIFF, BMP, GFR, ANEU ####[address] [address] Eosinophils/100 WBC (Bld) 2.4 % Normal 0.0-6.0 [facility] Comment on above: Performed By: #### C BC, ADIFF, BMP, GFR, ANEU ####[address] [address] Lymphocyte, Absolute 1.7 10 3/mcL Normal 0.9-4.3 [facility] Comment on above: Performed By: #### C BC, ADIFF, BMP, GFR, ANEU ####[address] [address] Lymphocytes/100 WBC (Bld) 20.8 % Normal 20.0-40.0 [facility] Comment on above: Performed By: #### C BC, ADIFF, BMP, GFR, ANEU ####[address] [address] Monocyte, Absolute 0.6 10 3/mcL Normal 0.1-1.4 [facility] Comment on above: Performed By: #### C BC, ADIFF, BMP, GFR, ANEU ####[address] [address] Monocytes/100 WBC (Bld) 7.7 % Normal 2.0-13.0 [facility] Comment on above: Performed By: #### C BC, ADIFF, BMP, GFR, ANEU ####[address] [address] Neutrophils/100 WBC (Bld) 68.1 % Normal 50.0-75.0 [facility] Comment on above: Performed By: #### C BC, ADIFF, BMP, GFR, ANEU ####[address] [address] .GFRon 05-29-2025 Estimated Glomerular Filtration Rate 99 ml/min/1.73sqm Normal [facility] Comment on above: Result Comment: [...] BC, ADIFF, BMP, GFR, ANEU ####[place] [address] .NEUABSon 05-29-2025 Neutrophil, Absolute 5.7 10 3/mcL Normal 2.3-8.1 [facility] Comment on above: Performed By: #### C BC, ADIFF, BMP, GFR, ANEU ####[place] [address] BMPon 05-29-2025 BUN/Creatinine Ratio 6.3 ratio Low 10.0-22.0 [facility] Comment on above: Performed By: #### C BC, ADIFF, BMP, GFR, ANEU ####[place] [address] Calcium [Mass/Vol] 9.4 mg/dL Normal 8.7-10.4 [facility] Comment on above: Performed By: #### C BC, ADIFF, BMP, GFR, ANEU ####[place] [address] Chloride [Moles/Vol] 110 mmol/L Normal 98-110 [facility] Comment on above: Performed By: #### C BC, ADIFF, BMP, GFR, ANEU ####[place] [address] CO2 [Moles/Vol] 23 mmol/L Normal 22-32 [facility] Comment on above: Performed By: #### C BC, ADIFF, BMP, GFR, ANEU ####[place] [address] Creatinine [Mass/Vol] 0.79 mg/dL Normal 0.50-1.20 [facility] Comment on above: Result Comment: Test ing performed on [employer] analyzer using enzymatic creatinine methodology. Performed By: #### C BC, ADIFF, BMP, GFR, ANEU ####[place] [address] Electrolyte Balance 9.0 mEq/L Normal 4.0-15.0 [facility] Comment on above: Performed By: #### C BC, ADIFF, BMP, GFR, ANEU ####[address] [address] Glucose [Mass/Vol] 98 mg/dL Normal 70-110 [facility] Comment on above: Performed By: #### C BC, ADIFF, BMP, GFR, ANEU ####[place] [address] Potassium [Moles/Vol] 4.2 mmol/L Normal 3.5-5.0 [facility] Comment on above: Performed By: #### C BC, ADIFF, BMP, GFR, ANEU ####[place] [address] Sodium [Moles/Vol] 142 mmol/L Normal 136-145 [facility] Comment on above: Performed By: #### C BC, ADIFF, BMP, GFR, ANEU ####[place] [address] Urea nitrogen [Mass/Vol] 5.0 mg/dL Low 8.0-22.0 [facility] Comment on above: Performed By: #### C BC, ADIFF, BMP, GFR, ANEU ####[place] [id number] CBCon 05-29-2025 Erythrocyte distribution width (RBC) [Ratio] 15.8 % High 11.5-15.5 [facility] Comment on above: Performed By: #### C BC, ADIFF, BMP, GFR, ANEU ####[place] [address] Hematocrit (Bld) [Volume fraction] 39.3 % Normal 34.0-46.0 [facility] Comment on above: Performed By: #### C BC, ADIFF, BMP, GFR, ANEU ####[place] [address] Hgb 13.2 G/dL Normal 12.0-16.0 [facility] Comment on above: Performed By: #### C BC, ADIFF, BMP, GFR, ANEU ####[place] [address] MCH (RBC) [Entitic mass] 33.0 pg Normal 27.0-33.0 [facility] Comment on above: Performed By: #### C BC, ADIFF, BMP, GFR, ANEU ####[place] [address] MCHC 33.6 G/dL Normal 32.0-36.0 [facility] Comment on above: Performed By: #### C BC, ADIFF, BMP, GFR, ANEU ####[place] [address] MCV (RBC) [Entitic vol] 98.2 fL Normal 80.0-99.0 [facility] Comment on above: Performed By: #### C BC, ADIFF, BMP, GFR, ANEU ####[place] [address] Platelet 316 10 3/mcL Normal 150-450 [facility] Comment on above: Performed By: #### C BC, ADIFF, BMP, GFR, ANEU ####[place] [address] Platelet mean volume (Bld) [Entitic vol] 7.8 fL Normal 6.6-10.5 [facility] Comment on above: Performed By: #### C BC, ADIFF, BMP, GFR, ANEU ####[place] [address] RBC 4.00 10 6/mcL Low 4.10-5.30 [facility] Comment on above: Performed By: #### C BC, ADIFF, BMP, GFR, ANEU ####[place] [address] WBC 8.3 10 3/mcL Normal 4.5-10.8 [facility] Comment on above: Performed By: #### C BC, ADIFF, BMP, GFR, ANEU ####[place] [address] CURon 05-29-2025 [facility] LABORATORYOrdered By: SYSTEM SYSTEM on 05-29-2025 [...] 23 mmol/L Normal 22 - 32 mEq/L AH ADM SS Creatinine [Mass/Vol] 0.79 mg/dL Normal 0.50 - 1.20 mg/dL AH ADM SS Comment on above: Interpretive Data: T esting performed on [employer] analyzer using enzymatic creatinine methodology. Electrolyte Balance 9.0 mEq/L Normal 4.0 - 15 .0 mEq/L ADM SS Eosinophils (Bld) [#/Vol] 0.2 103/mcL Normal 0.0 - 0.7 10^3/mcL AH Workflow SS Eosinophils/100 WBC (Bld) 2.4 % Normal 0.0 - 6.0 % Workflow SS Erythrocyte distribution width (RBC) [Ratio] 15.8 % High 11.5 - 15.5 % AH Workflow SS Estimated Glomerular Filtration Rate 99 [...] 39.3 % Normal 34.0 - 46.0 % AH [...] 5.0 mg/dL Low 8.0 - 22.0 mg/dL ADM SS Urea nitrogen/Creatinine [Mass ratio] 6.3 ratio Low 10.0 - 22.0 ratio AH ADM SS WBC (Bld) [#/Vol] 8.3 103/mcL Normal 4.5 - 10.8 10^3/mcL AH Workflow SS URINE CULTURE [CCL]on 2024 Bacteria identified Cx Nom (U) Normal [facility] Comment on above: Performed By: #### 2 48549 ####[facility],[address] [place] [address] .Auto Diffon 05-28-2025 Basophil, Absolute 0.1 10 3/mcL Normal 0.0-0.3 [facility] Comment on above: Performed By: #### G FR, ANEU, CBC, ADIFF, CMP ####[address] [address] Basophils/100 WBC (Bld) 1.5 % Normal 0.0-2.5 [facility] Comment on above: Performed By: #### G FR, ANEU, CBC, ADIFF, CMP ####[address] [address] Eosinophil, Absolute 0.2 10 3/mcL Normal 0.0-0.7 [facility] Comment on above: Performed By: #### G FR, ANEU, CBC, ADIFF, CMP ####[address] [address] Eosinophils/100 WBC (Bld) 2.6 % Normal 0.0-6.0 [facility] Comment on above: Performed By: #### G FR, ANEU, CBC, ADIFF, CMP ####[address] [address] Lymphocyte, Absolute 2.2 10 3/mcL Normal 0.9-4.3 [facility] Comment on above: Performed By: #### G FR, ANEU, CBC, ADIFF, CMP ####[address] [address] Lymphocytes/100 WBC (Bld) 30.4 % Normal 20.0-40.0 [facility] Comment on above: Performed By: #### G FR, ANEU, CBC, ADIFF, CMP ####[address] [address] Monocyte, Absolute 0.6 10 3/mcL Normal 0.1-1.4 [facility] Comment on above: Performed By: #### G FR, ANEU, CBC, ADIFF, CMP ####[address] [address] Monocytes/100 WBC (Bld) 8.1 % Normal 2.0-13.0 [facility] Comment on above: Performed By: #### G FR, ANEU, CBC, ADIFF, CMP ####[address] [address] Neutrophils/100 WBC (Bld) 57.4 % Normal 50.0-75.0 [facility] Comment on above: Performed By: #### G FR, ANEU, CBC, ADIFF, CMP ####[address] [address] .GFRon 05-28-2025 Estimated Glomerular Filtration Rate 88 ml/min/1.73sqm Normal [facility] Comment on above: Result Comment: [...] #### G FR, ANEU, CBC, ADIFF, CMP ####[address] [address] .NEUABSon 05-28-2025 Neutrophil, Absolute 4.2 10 3/mcL Normal 2.3-8.1 [facility] Comment on above: Performed By: #### G FR, ANEU, CBC, ADIFF, CMP ####[address] [address] CBCon 05-28-2025 Erythrocyte distribution width (RBC) [Ratio] 15.2 % Normal 11.5-15.5 [facility] Comment on above: Performed By: #### G FR, ANEU, CBC, ADIFF, CMP ####[place] [address] Hematocrit (Bld) [Volume fraction] 34.4 % Normal 34.0-46.0 [facility] Comment on above: Performed By: #### G FR, ANEU, CBC, ADIFF, CMP ####[place] [address] Hgb 11.7 G/dL Low 12.0-16.0 [facility] Comment on above: Performed By: #### G FR, ANEU, CBC, ADIFF, CMP ####[place] [address] MCH (RBC) [Entitic mass] 33.2 pg High 27.0-33.0 [facility] Comment on above: Performed By: #### G FR, ANEU, CBC, ADIFF, CMP ####[place] [address] MCHC 34.0 G/dL Normal 32.0-36.0 [facility] Comment on above: Performed By: #### G FR, ANEU, CBC, ADIFF, CMP ####[place] [address] MCV (RBC) [Entitic vol] 97.8 fL Normal 80.0-99.0 [facility] Comment on above: Performed By: #### G FR, ANEU, CBC, ADIFF, CMP ####[place] [address] Platelet 313 10 3/mcL Normal 150-450 [facility] Comment on above: Performed By: #### G FR, ANEU, CBC, ADIFF, CMP ####[place] [address] Platelet mean volume (Bld) [Entitic vol] 7.0 fL Normal 6.6-10.5 [facility] Comment on above: Performed By: #### G FR, ANEU, CBC, ADIFF, CMP ####[place] [place] [address] RBC 3.52 10 6/mcL Low 4.10-5.30 [facility] Comment on above: Performed By: #### G FR, ANEU, CBC, ADIFF, CMP ####[place] [address] WBC 7.4 10 3/mcL Normal 4.5-10.8 [facility] Comment on above: Performed By: #### G FR, ANEU, CBC, ADIFF, CMP ####[place] [address] CMPon 05-28-2025 Albumin Level 3.1 G/dL Low 3.2-4.8 [facility] Comment on above: Performed By: #### G FR, ANEU, CBC, ADIFF, CMP ####[place] [address] Albumin/Globulin [Mass ratio] 1.3 {ratio} Normal 0.9-1.6 [facility] Comment on above: Performed By: #### G FR, ANEU, CBC, ADIFF, CMP ####[place] [address] ALP [Catalytic activity/Vol] 59 U/L Normal 38-126 [facility] Comment on above: Performed By: #### G FR, ANEU, CBC, ADIFF, CMP ####[place] [address] ALT [Catalytic activity/Vol] 10 U/L Normal 10-49 [facility] Comment on above: Performed By: #### G FR, ANEU, CBC, ADIFF, CMP ####[place] [address] AST [Catalytic activity/Vol] 15 U/L Normal 8-34 [facility] Comment on above: Performed By: #### G FR, ANEU, CBC, ADIFF, CMP ####[place] [address] Bili Total 0.30 mg/dL Normal 0.20-1.20 [facility] Comment on above: Result Comment: Use of this assay is not recommended for patients undergoing treatment with eltrombopag due to the potential for falsely elevated results. Performed By: #### G FR, ANEU, CBC, ADIFF, CMP ####[place] [address] BUN/Creatinine Ratio 12.6 ratio Normal 10.0-22.0 [facility] Comment on above: Performed By: #### G FR, ANEU, CBC, ADIFF, CMP ####[address] [address] Calcium [Mass/Vol] 8.5 mg/dL Low 8.7-10.4 [facility] Comment on above: Performed By: #### G FR, ANEU, CBC, ADIFF, CMP ####[place] [address] Chloride [Moles/Vol] 111 mmol/L High 98-110 [facility] Comment on above: Performed By: #### G FR, ANEU, CBC, ADIFF, CMP ####[place] [address] CO2 [Moles/Vol] 24 mmol/L Normal 22-32 [facility] Comment on above: Performed By: #### G FR, ANEU, CBC, ADIFF, CMP ####[place] [address] Creatinine [Mass/Vol] 0.87 mg/dL Normal 0.50-1.20 [facility] Comment on above: Result Comment: Test ing performed on [employer] analyzer using enzymatic creatinine methodology. Performed By: #### G FR, ANEU, CBC, ADIFF, CMP ####[place] [address] Electrolyte Balance 8.0 mEq/L Normal 4.0-15.0 [facility] Comment on above: Performed By: #### G FR, ANEU, CBC, ADIFF, CMP ####[address] [address] Globulin 2.4 G/dL Low 2.5-4.2 [facility] Comment on above: Performed By: #### G FR, ANEU, CBC, ADIFF, CMP ####[place] [id number] Glucose [Mass/Vol] 91 mg/dL Normal 70-110 [facility] Comment on above: Performed By: #### G FR, ANEU, CBC, ADIFF, CMP ####[place] [address] Potassium [Moles/Vol] 3.6 mmol/L Normal 3.5-5.0 [facility] Comment on above: Performed By: #### G FR, ANEU, CBC, ADIFF, CMP ####[place] [address] Sodium [Moles/Vol] 143 mmol/L Normal 136-145 [facility] Comment on above: Performed By: #### G FR, ANEU, CBC, ADIFF, CMP ####[place] [address] Total Protein 5.5 G/dL Low 5.7-8.2 [facility] Comment on above: Performed By: #### G FR, ANEU, CBC, ADIFF, CMP ####[place] [address] Urea nitrogen [Mass/Vol] 11.0 mg/dL Normal 8.0-22.0 [facility] Comment on above: Performed By: #### G FR, ANEU, CBC, ADIFF, CMP ####[place] [address] LABORATORYOrdered By: SYSTEM SYSTEM on 05-28-2025 Albumin [...] above: Interpretive Data: T esting performed on [employer] analyzer using enzymatic creatinine methodology. Electrolyte Balance [...] Normal 9.0 - 1 4.4 seconds [facility] Comment on above: Interpretive Data: E ffective 05/17/08, Protime results may be affected by some antibiotics (i.e. Ciprofloxacin, Azithromycin, Bactrim) which may potentiate the action of oral anticoagulants, with further increases in Protime/INR. PT International Ratio 1.1 ratio Invalid Interpretation Code AH [facility] Comment on above: Interpretive Data: T hebert [employer] (CHEST, 1991, 102:312S-25S) [...] 11.0 mg/dL Normal 8.0 - 22.0 mg/dL ADM SS Urea nitrogen/Creatinine [Mass ratio] 12.6 ratio Normal 10.0 - 22.0 ratio AH ADM SS WBC (Bld) [#/Vol] 7.4 103/mcL Normal 4.5 - 10.8 10^3/mcL Workflow SS MGon 05-28-2025 Magnesium [Mass/Vol] 1.9 mg/dL Normal 1.6-2.4 [facility] Comment on above: Performed By: #### P RO, MG ####[place] [address] PROon 05-28-2025 INR Coag (PPP) [Relative time] 1.1 {INR} Normal [facility] Comment on above: Result Comment: The [employer] (CHEST, 1991, 102:312S-25S)recommended therapeutic range for oral anticoagulant therapy is:LOW RISK: Prophylaxis of venous thrombosis INR: 2.0-3.0 Treatment of pulmonary embolism 2.0-3.0 Prevention of systemic embolism 2.0-3.0HIGH RISK: Mechanical prosthetic valves 2.5-3.5 Performed By: #### P RO, MG ####[place] [address] PT Coag (PPP) [Time] 12.8 s Normal 9.0-14.4 [facility] Comment on above: Result Comment: Effe ctive 05/17/08, Protime results may be affected by some antibiotics (i.e. Ciprofloxacin, Azithromycin, Bactrim) which may potentiate the action of oral anticoagulants, with further increases in Protime/INR. Performed By: #### P RO, MG ####[address] [address] .Auto Diffon 05-27-2025 Basophil, Absolute 0.1 10 3/mcL Normal 0.0-0.3 [facility] Comment on above: Performed By: #### L AC, ADIFF, GFR, CBC, ANEU, BMP, MDW ####[address] [address] Basophils/100 WBC (Bld) 0.8 % Normal 0.0-2.5 [facility] Comment on above: Performed By: #### L AC, ADIFF, GFR, CBC, ANEU, BMP, MDW ####[address] [address] Eosinophil, Absolute 0.1 10 3/mcL Normal 0.0-0.7 [facility] Comment on above: Performed By: #### L AC, ADIFF, GFR, CBC, ANEU, BMP, MDW ####[address] [address] Eosinophils/100 WBC (Bld) 1.4 % Normal 0.0-6.0 [facility] Comment on above: Performed By: #### L AC, ADIFF, GFR, CBC, ANEU, BMP, MDW ####[address] [address] Lymphocyte, Absolute 2.4 10 3/mcL Normal 0.9-4.3 [facility] Comment on above: Performed By: #### L AC, ADIFF, GFR, CBC, ANEU, BMP, MDW ####[address] [address] Lymphocytes/100 WBC (Bld) 22.7 % Normal 20.0-40.0 [facility] Comment on above: Performed By: #### L AC, ADIFF, GFR, CBC, ANEU, BMP, MDW ####[address] [address] Monocyte, Absolute 0.7 10 3/mcL Normal 0.1-1.4 [facility] Comment on above: Performed By: #### L AC, ADIFF, GFR, CBC, ANEU, BMP, YOUNG ####[place] [id number] [place] [address] Monocytes/100 WBC (Bld) 6.5 % Normal 2.0-13.0 [facility] Comment on above: Performed By: #### L AC, ADIFF, GFR, CBC, ANEU, BMP, W ####[address] [address] Neutrophils/100 WBC (Bld) 68.6 % Normal 50.0-75.0 [facility] Comment on above: Performed By: #### L AC, ADIFF, GFR, CBC, ANEU, BMP, MDW ####[address] [address] .GFRon 05-27-2025 Estimated Glomerular Filtration Rate 81 ml/min/1.73sqm Normal [facility] Comment on above: Result Comment: [...] AC, ADIFF, GFR, CBC, ANEU, BMP, YOUNG ####[place] [id number] [place] [address] .MDWon 05-27-2025 Monocyte Distribution Width 20.07 High 0.00-20.00 [facility] Comment on above: Result Comment: For adults in ED, MDW>20.0 may be associated with a higher risk of sepsis during the first 12hrs of hospital admission Performed By: #### L AC, ADIFF, GFR, CBC, ANEU, BMP, YOUNG ####[address] [address] .NEUABSon 05-27-2025 Neutrophil, Absolute 7.3 10 3/mcL Normal 2.3-8.1 [facility] Comment on above: Performed By: #### L AC, ADIFF, GFR, CBC, ANEU, BMP, YOUNG ####[address] 05-27-2025 BUN/Creatinine Ratio 12.8 ratio Normal 10.0-22.0 [facility] Comment on above: Performed By: #### L AC, ADIFF, GFR, CBC, ANEU, BMP, YOUNG ####[place] [address] Calcium [Mass/Vol] 9.1 mg/dL Normal 8.7-10.4 [facility] Comment on above: Performed By: #### L AC, ADIFF, GFR, CBC, ANEU, BMP, YOUNG ####[place] [address] Chloride [Moles/Vol] 111 mmol/L High 98-110 [facility] Comment on above: Performed By: #### L AC, ADIFF, GFR, CBC, ANEU, BMP, YOUNG ####[place] [address] CO2 [Moles/Vol] 24 mmol/L Normal 22-32 [facility] Comment on above: Performed By: #### L AC, ADIFF, GFR, CBC, ANEU, BMP, YOUNG ####[place] [address] Creatinine [Mass/Vol] 0.94 mg/dL Normal 0.50-1.20 [facility] Comment on above: Result Comment: Test ing performed on [employer] analyzer using enzymatic creatinine methodology. Performed By: #### L AC, ADIFF, GFR, CBC, ANEU, BMP, YOUNG ####[place] [address] Electrolyte Balance 6.0 mEq/L Normal 4.0-15.0 [facility] Comment on above: Performed By: #### L AC, ADIFF, GFR, CBC, ANEU, BMP, YOUNG ####[place] [id number] Glucose [Mass/Vol] 95 mg/dL Normal 70-110 [facility] Comment on above: Performed By: #### L AC, ADIFF, GFR, CBC, ANEU, BMP, YOUNG ####[place] [id number] Potassium [Moles/Vol] 4.3 mmol/L Normal 3.5-5.0 [facility] Comment on above: Performed By: #### L AC, ADIFF, GFR, CBC, ANEU, BMP, YOUNG ####[place] [address] Sodium [Moles/Vol] 141 mmol/L Normal 136-145 [facility] Comment on above: Performed By: #### L AC, ADIFF, GFR, CBC, ANEU, BMP, YOUNG ####[place] [address] Urea nitrogen [Mass/Vol] 12.0 mg/dL Normal 8.0-22.0 [facility] Comment on above: Performed By: #### L AC, ADIFF, GFR, CBC, ANEU, BMP, YOUNG ####[address] [address] CBCon 05-27-2025 Erythrocyte distribution width (RBC) [Ratio] 15.4 % Normal 11.5-15.5 [facility] Comment on above: Performed By: #### L AC, ADIFF, GFR, CBC, ANEU, BMP, YOUNG ####[place] [address] Hematocrit (Bld) [Volume fraction] 40.0 % Normal 34.0-46.0 [facility] Comment on above: Performed By: #### L AC, ADIFF, GFR, CBC, ANEU, BMP, YOUNG ####[place] [id number] Hgb 13.4 G/dL Normal 12.0-16.0 [facility] Comment on above: Performed By: #### L AC, ADIFF, GFR, CBC, ANEU, BMP, W ####[place] [address] MCH (RBC) [Entitic mass] 32.6 pg Normal 27.0-33.0 [facility] Comment on above: Performed By: #### L AC, ADIFF, GFR, CBC, ANEU, BMP, W ####[place] [address] MCHC 33.4 G/dL Normal 32.0-36.0 [facility] Comment on above: Performed By: #### L AC, ADIFF, GFR, CBC, ANEU, BMP, W ####[place] [address] MCV (RBC) [Entitic vol] 97.3 fL Normal 80.0-99.0 [facility] Comment on above: Performed By: #### L AC, ADIFF, GFR, CBC, ANEU, BMP, MDW ####[place] [address] Platelet 357 10 3/mcL Normal 150-450 [facility] Comment on above: Performed By: #### L AC, ADIFF, GFR, CBC, ANEU, BMP, MDW ####[place] [address] Platelet mean volume (Bld) [Entitic vol] 7.2 fL Normal 6.6-10.5 [facility] Comment on above: Performed By: #### L AC, ADIFF, GFR, CBC, ANEU, BMP, MDW ####[place] [address] RBC 4.11 10 6/mcL Normal 4.10-5.30 [facility] Comment on above: Performed By: #### L AC, ADIFF, GFR, CBC, ANEU, BMP, MDW ####[place] [id number] WBC 10.6 10 3/mcL Normal 4.5-10.8 [facility] Comment on above: Performed By: #### L AC, ADIFF, GFR, CBC, ANEU, BMP, MDW ####[place] [address] ED MED ADMINISTRATION DETAIL on 05-27-2025 ED MED ADMINISTRATION DETAIL Normal [facility] ED NURSES CLINICAL NOTEon ED NURSES CLINICAL NOTE Normal J l [facility] ED ORDER SHEET (CPOE ONLY)on 05-27-2025 ED ORDER SHEET (CPOE ONLY) Normal [facility] ED PHYSICIAN CLINICAL REPORT on 05-27-2025 ED PHYSICIAN CLINICAL REPORT Normal [facility] ED SUPER BILLon 05-27-2025 ED SUPER BILL Normal [facility] ED VISIT SUMMARYon ED VISIT SUMMARY Normal [facility] ED VITALS FLOW SHEETon 05-27 ED VITALS FLOW SHEET Normal [facility] LABORATORYOrdered By: Bassam Dixon on 05-27-2025 Appearance (U) Cloudy *ABN* (05/27/25 6:16 PM) Invalid Interpretation Code Clear AH Auto Urine SS Bacteria LM.HPF (Urine sed) [#/Area] 1 /[HPF] Invalid Interpretation Code Negative Auto Urine SS [...] test) Ql (U) Negative (05/27/25 5:04 PM) [facility] Work Phone: LACon 05-27-2025 Lactic Acid Lvl 0.7 mmol/L Normal 0.5-2.2 [facility] Comment on above: Performed By: #### L AC, ADIFF, GFR, CBC, ANEU, BMP, MDW ####[place] [id number] [place] [address] No Panel Informationon 05-27 Microscopic examination of blood, culture Culture has been received in lab and is no growth to date. Routine cultures are held for 5 days. [facility] Work Phone: Microscopic examination of blood, culture Culture has been received in lab and is no growth to date. Routine cultures are held for 5 days. [facility] Work Phone: Culture Urine 10,000 - 50,000 cfu/ ml Mixed growth consistent with normal urogenital blanco. [facility] Work Phone: UAon 05-27-2025 Color (U) Yellow Normal [facility] Comment on above: Performed By: #### U A, UAMIC ####[facility] [place] [address] Glucose (U) [Mass/Vol] Negative Normal Negative [facility] Comment on above: Performed By: #### U A, UAMIC ####[facility] [place] [address] Ketones Ql (U) Negative Normal Neg-Trace [facility] Comment on above: Performed By: #### U A, UAMIC ####[facility] [place] [address] UA Appear Cloudy Abnormal Clear [facility] Comment on above: Performed By: #### U A, UAMIC ####[facility] [place] [address] UA Blood Moderate Abnormal Neg-Trace [facility] Comment on above: Performed By: #### U A, UAMIC ####[place] [address] UA Leuk Est Large Abnormal Negative [facility] Comment on above: Performed By: #### U A, UAMIC ####[place] [address] UA Nitrite Positive Abnormal Negative [facility] Comment on above: Performed By: #### U A, UAMIC ####[place] [address] UA pH >=8.5 Abnormal 5.0 - 8.0 [facility] Comment on above: Performed By: #### U A, UAMIC ####[place] [address] UA Protein 100 mg/dL Abnormal Negative [facility] Comment on above: Performed By: #### U A, UAMIC ####[place] [address] UA Spec Grav 1.010 Normal 1.006-1.029 [facility] Comment on above: Performed By: #### U A, UAMIC ####[place] [address] UA Specimen Type Hilario Catheter Normal [facility] Comment on above: Performed By: #### U A, UAMIC ####[place] [address] UA Urobilinogen 0.2 E.U./dL Normal 0.2-1.0 [facility] Comment on above: Performed By: #### U A, UAMIC ####[facility] [place] [address] Urobilinogen (U) [Mass/Vol] Negative Normal Neg-Trace [facility] Comment on above: Performed By: #### U A, UAMIC ####[place] [address] Color (U) Yellow Normal [facility] Comment on above: Performed By: #### U A, UAMIC ####[place] [address] Glucose (U) [Mass/Vol] Negative Normal Negative [facility] Comment on above: Performed By: #### U A, UAMIC ####[place] [address] Ketones Ql (U) Negative Normal Neg-Trace [facility] Comment on above: Performed By: #### U A, UAMIC ####[place] [address] UA Appear Cloudy Abnormal Clear [facility] Comment on above: Performed By: #### U A, UAMIC ####[place] [address] UA Blood Negative Normal Neg-Trace [facility] Comment on above: Performed By: #### U A, UAMIC ####[place] [address] UA Leuk Est Trace Normal Negative [facility] Comment on above: Performed By: #### U A, UAMIC ####[place] [address] UA Nitrite Negative Normal Negative [facility] Comment on above: Performed By: #### U A, UAMIC ####[place] [address] UA pH 8.5 Abnormal 5.0 - 8.0 [facility] Comment on above: Performed By: #### U A, UAMIC ####[place] [address] UA Protein Trace Normal Negative [facility] Comment on above: Performed By: #### U A, UAMIC ####[place] [address] UA Spec Grav 1.020 Normal 1.006-1.029 [facility] Comment on above: Performed By: #### U A, UAMIC ####[place] [address] UA Specimen Type Clean Catch Normal [facility] Comment on above: Performed By: #### U A, UAMIC ####[place] [address] UA Urobilinogen 1.0 E.U./dL Normal 0.2-1.0 [facility] Comment on above: Performed By: #### U A, UAMIC ####[place] [address] Urobilinogen (U) [Mass/Vol] Negative Normal Neg-Trace [facility] Comment on above: Performed By: #### U A, UAMIC ####[place] [address] UAMICon 05-27-2025 UA Bacteria 1+ /hpf Abnormal Negative [facility] Comment on above: Performed By: #### U A, UAMIC ####[place] [address] UA Crenated RBCs 0-2 Abnormal [facility] Comment on above: Performed By: #### U A, UAMIC ####[place] [address] UA RBC 3-5 Abnormal 0-2 [facility] Comment on above: Performed By: #### U A, UAMIC ####[place] [address] UA Squam Epithelial 0-2 Normal 0-20 [facility] Comment on above: Performed By: #### U A, UAMIC ####[place] [address] UA Trip Rai Crystals 3+ /hpf Normal [facility] Comment on above: Performed By: #### U A, UAMIC ####[place] [address] UA WBC 10-20 Abnormal 0-5 [facility] Comment on above: Performed By: #### U A UAMIC ####[facility] [place] [address] UA RBC Rare Normal 0-2 [facility] Comment on above: Performed By: #### U A UAMIC ####[facility] [place] [address] UA Squam Epithelial 0-2 Normal 0-20 [facility] Comment on above: Performed By: #### U A UAMIC ####[facility] [place] [address] UA WBC Rare Normal 0-5 [facility] Comment on above: Performed By: #### U A UAMIC ####[place] [address] CBC + DIFFon 05-26-2025 Baso # 0.04 x10EE3/UL Normal 0.00 - 0.10 [facility] Comment on above: Performed By: #### 2 96158 ####[facility],[address] [place] [address] Basophils/100 WBC (Bld) 0.4 % Normal 0.0 - 2.0 [facility] Comment on above: Performed By: #### 2 10992 ####[facility],[address] [place] [address] CBC + DIFF Normal [facility] Comment on above: Result Comment: CBC- COMPLETE BLOOD COUNT Performed By: #### 2 79661 ####[facility],[address] [place] [address] EO # 0.28 x10EE3/UL Normal 0.00 - 0.50 [facility] Comment on above: Performed By: #### 2 40141 ####[facility],[address] [place] [address] Eosinophils/100 WBC (Bld) 3.1 % Normal 0.0 - 7.0 [facility] Comment on above: Performed By: #### 2 89032 ####[facility],[address] [place], [place] [id number] Erythrocyte distribution width (RBC) [Ratio] 14.1 % Normal 12.0 - 15.6 [facility] Comment on above: Performed By: #### 2 93377 ####[facility],[address] [place], [place] [id number] Hematocrit (Bld) [Volume fraction] 34.1 % Normal 34.0 - 46.0 [facility] Comment on above: Performed By: #### 2 90635 ####[facility],[address] [place] [address] Hemoglobin (Bld) [Mass/Vol] 12.1 g/dL Normal 12.0 - 16.0 [facility] Comment on above: Performed By: #### 2 59719 ####[facility],[address] [place] [address] Lymph # 2.66 x10EE3/UL Normal 0.80 - 2.80 [facility] Comment on above: Performed By: #### 2 27534 ####[facility],[address] [place], [place] [id number] Lymphocytes/100 WBC (Bld) 29.1 % Normal 20.0 - 45.0 [facility] Comment on above: Performed By: #### 2 02815 ####[facility],[address] [place], [place] [id number] MANUAL DIFF N/A Normal [facility] Comment on above: Performed By: #### 2 61981 ####[facility],[address] [place], [place] [id number] MCH (RBC) [Entitic mass] 34 pg High 27 - 33 [facility] Comment on above: Performed By: #### 2 00879 ####[facility],[address] [place] [address] MCHC 36 X10 3 Normal 32 - 36 [facility] Comment on above: Performed By: #### 2 87514 ####[facility],[address] [place], [place] [id number] MCV (RBC) [Entitic vol] 96 fL Normal 80 - 99 [facility] Comment on above: Performed By: #### 2 42339 ####[facility],[address] [place] [address] [place] # 0.65 x10EE3/UL Normal 0.20 - 1.00 [facility] Comment on above: Performed By: #### 2 84165 ####[facility],[address] [place] [address] MONOS % 7.1 % Normal 0.0 - 10.0 [facility] Comment on above: Performed By: #### 2 12367 ####[facility],[address] [place], [place] [phone] Morphology Efra (Bld) [Interp] N/A Normal [facility] Comment on above: Performed By: #### 2 67783 ####[facility],[address] [place] [address] Neut # 5.51 x10EE3/UL Normal 1.50 - 7.10 [facility] Comment on above: Performed By: #### 2 91663 ####[facility],[address] [place] [address] Neutrophils/100 WBC (Bld) 60.3 % Normal 46.0 - 76.0 [facility] Comment on above: Performed By: #### 2 76325 ####[facility],[address] [place] [address] PLATELET 372 x10EE3/UL Normal 150 - 450 [facility] Comment on above: Performed By: #### 2 32075 ####[facility],[address] [place] [address] Platelet mean volume (Bld) [Entitic vol] 6.7 fL Normal 6.6 - 10.5 [facility] Comment on above: Result Comment: AUTO MATED DIFFERENTIAL Performed By: #### 2 65619 ####[facility],[address] [place] [address] RBC 3.55 x 10EE6/UL Low 4.10 - 5.30 [facility] Comment on above: Performed By: #### 2 11706 ####[facility],[address] [place] [address] WBC 9.1 x 10EE3/UL Normal 4.5 - 10.8 [facility] Comment on above: Performed By: #### 2 45770 ####[facility],[address] [place] [address] CMP with eGFRon 05-26-2025 AGE 34 years Normal [facility] Comment on above: Performed By: #### 2 43407 ####[facility],[address] [place] [address] Albumin [Mass/Vol] 3.7 g/dL Normal 3.4 - 5.0 [facility] Comment on above: Performed By: #### 2 99135 ####[facility],[address] [place] [address] Albumin/Globulin [Mass ratio] 1.3 {ratio} Normal 0.9 - 1.6 [facility] Comment on above: Performed By: #### 2 63843 ####[facility],[address] [place] [address] ALK PHOS 66 U/L Normal 46 - 116 [facility] Comment on above: Performed By: #### 2 84903 ####[facility],[address] [place] [address]238 ALT [Catalytic activity/Vol] 17 U/L Normal 16 - 63 [facility] Comment on above: Performed By: #### 2 20439 ####[facility],[address] [place] [address] Anion gap [Moles/Vol] 18 mmol/L Normal 10 - 20 [facility] Comment on above: Performed By: #### 2 46141 ####[facility],[address] [place] [address] 18209 AST [Catalytic activity/Vol] 14 U/L Normal 13 - 39 [facility] Comment on above: Performed By: #### 2 74946 ####[facility],[address] [place] [address]641 B/C RATIO 11 ratio Normal 0 - 30 [facility] Comment on above: Performed By: #### 2 75298 ####[facility],[address] [place] [address] Bilirubin [Mass/Vol] 0.2 mg/dL Normal 0.2 - 1.0 [facility] [facility] Comment on above: Performed By: #### 2 47130 ####[facility],[address] [place] [address] 29263 Calcium [Mass/Vol] 8.7 mg/dL Normal 8.5 - 10.1 [facility] Comment on above: Performed By: #### 2 81898 ####[facility],[address] [place] [address] 40683 Chloride [Moles/Vol] 106 mmol/L Normal 98 - 107 [facility] Comment on above: Performed By: #### 2 36513 ####[facility],[address] [place] [address] 90097 CMP with eGFR Normal [facility] Comment on above: Result Comment: COMP REHENSIVE METABOLIC PANEL Performed By: #### 2 65696 ####[facility],[address] [place] [address] 40931 CO2 [Moles/Vol] 21.5 mmol/L Normal 21.0 - 32.0 [facility] Comment on above: Performed By: #### 2 15532 ####[facility],[address] [place] [address] 57879 Creatinine [Mass/Vol] 1.17 mg/dL High 0.55 - 1.02 [facility] Comment on above: Performed By: #### 2 47405 ####[facility],[address] [place] [address] 01332 eGFR 52 ML/MINUTE Low 60 - 999 [facility] Comment on above: Performed By: #### 2 88056 ####[facility],[address] [place] [address] 76975 GFR/1.73 sq M.predicted among non-blacks MDRD (S/P/Bld) [Vol rate/Area] mL/min/{1.73_m2} Normal 60 - 999 [facility] Comment on above: Result Comment: ACCO RDING TO THE NATIONAL KIDNEY DISEASE EDUCATION PROGRAM(NKDE), A NORMAL eGFRIS A VALUE GREATER THAN OR EQUAL TO 60 ML/MIN/1.73 SQ METERS.CHRONIC KIDNEY DISEASE: <60mL/MIN/1.73 SQ METERSKIDNEY FAILURE: <15mL/MIN/1.73 SQ METERSTHIS TEST SHOULD ONLY BE USED FOR PATIENTS 18 YEARS OF AGE AND OLDER. Performed By: #### 2 51827 ####[facility],[address] [place] [address] 03259 Globulin (S) [Mass/Vol] 2.9 g/dL Normal 1.5 - 3.8 [facility] Comment on above: Performed By: #### 2 91578 ####[facility],[address] [place] [address] 88755 Glucose [Mass/Vol] 101 mg/dL Normal 74 - 106 [facility] Comment on above: Performed By: #### 2 51221 ####[facility],[address] [place] [address] 36787 Potassium [Moles/Vol] 4.1 mmol/L Normal 3.5 - 5.1 [facility] Comment on above: Performed By: #### 2 59894 ####[facility],[address] [place] [address] 47306 Protein [Mass/Vol] 6.6 g/dL Normal 6.4 - 8.2 [facility] Comment on above: Performed By: #### 2 31743 ####[facility],[address] [place] [address] Sodium [Moles/Vol] 141 mmol/L Normal 136 - 145 [facility] Comment on above: Performed By: #### 2 96000 ####[facility],[address] [place] [address] Urea nitrogen [Mass/Vol] 13 mg/dL Normal 7 - 18 [facility] Comment on above: Performed By: #### 2 28250 ####[facility],[address] [place] [address] LACTATEon 05-26-2025 Lactate [Moles/Vol] 0.8 mmol/L Normal 0.4 - 2.0 [facility] Comment on above: Performed By: #### 2 30737 ####[facility],[address] [place] [address] SERUM QUALon 05-26 EXTERNAL QC DONE? YES Normal [facility] Comment on above: Performed By: #### 2 00590 ####[facility],[address] [place] [address] INTERNAL QC PASS Normal [facility] Comment on above: Performed By: #### 2 95559 ####[facility],[address] [place] [address] SER Negative Normal NEGATIVE [facility] Comment on above: Performed By: #### 2 79317 ####[facility],[address] [place], [place] [id number] URINALYSISon 05-26-2025 Amorphous 2+ Normal [facility] Comment on above: Performed By: #### 2 64336 ####[facility],[address] [place] [address] Bacteria 3+ Normal [facility] Comment on above: Performed By: #### 2 54308 ####[facility],[address] [place], [place] [id number] Bilirubin Ql (U) Negative Normal NORMAL: NEGATIVE [facility] Comment on above: Performed By: #### 2 97705 ####[facility],[address] [place] [address] Casts NONE Normal [facility] Comment on above: Performed By: #### 2 67802 ####[facility],[address] [place] [address] Clarity (U) sl.cloudy Normal NORMAL: CLEAR [facility] Comment on above: Performed By: #### 2 28141 ####[facility],[address] [place] [address] Color (U) yellow Normal NORMAL: YELLOW [facility] Comment on above: Performed By: #### 2 19523 ####[facility],[address] [place] [address] Crystals LM Nom (Urine sed) SEE BELOW Normal [facility] Comment on above: Performed By: #### 2 13372 ####[facility],[address] [place], [place] [id number] Epi Cells OCC Normal [facility] Comment on above: Performed By: #### 2 77906 ####[facility],[address] [place] [address] 70229 Glucose Ql (U) NORM Normal NORMAL: NORMAL [facility] Comment on above: Performed By: #### 2 29189 ####[facility],[address] [place] [address] 05117 Hemoglobin Ql (U) 150 Abnormal NORMAL: NEGATIVE [facility] Comment on above: Performed By: #### 2 86072 ####[facility],[address] [place] [address] 74888 Ketone Negative Normal NORMAL: NEGATIVE [facility] Comment on above: Performed By: #### 2 26587 ####[facility],[address] [place], [place] [id number] Leukocytes 500 Abnormal NORMAL: NEGATIVE [facility] Comment on above: Performed By: #### 2 73614 ####[facility],[address] [place] [address] 46170 Mucous NONE Normal [facility] Comment on above: Performed By: #### 2 60062 ####[facility],[address] [place], [place] [id number] Nitrite Ql (U) Positive Normal NORMAL: NEGATIVE [facility] Comment on above: Performed By: #### 2 25992 ####[facility],[address] [place] [address] pH (U) 8 [pH] Normal NORMAL: 5.0-8.0 [facility] Comment on above: Performed By: #### 2 93813 ####[facility],[address] [place] [address] Protein Ql (U) 100 Abnormal NORMAL: NEGATIVE [facility] Comment on above: Performed By: #### 2 18931 ####[facility],[address] [place] [address] 20114 Rbc 0-5 Normal 0-3/hpf [facility] Comment on above: Performed By: #### 2 61957 ####[facility],[address] [place] [address] Sp [place] 1.010 Normal NORMAL: 1.010-1.030 [facility] Comment on above: Performed By: #### 2 42112 ####[facility],[address] [place], [place] [phone] Specimen Type R Normal [facility] Comment on above: Performed By: #### 2 12012 ####[facility],[address] [place] [address] Triple Phos 1+ Normal NORMAL: NONE [facility] Comment on above: Performed By: #### 2 07908 ####[facility],[address] [place], [place] [phone] Urinalysis dipstick W Reflex Microscopic panel (U) SEE BELOW Normal [facility] Comment on above: Result Comment: MICR OSCOPIC Performed By: #### 2 82752 ####[facility],[address] [place] [address] Urobilinog NORM Normal NORMAL: NORMAL [facility] Comment on above: Performed By: #### 2 39250 ####[facility],[address] [place] [address] Wbc 11-15 Normal 0-5/hpf [facility] Comment on above: Performed By: #### 2 39320 ####[facility],[address] [place] [address] Yeast NONE Normal [facility] Comment on above: Performed By: #### 2 93885 ####[facility],[address] [place] [address] .Auto Diffon 05-25-2025 Basophil, Absolute 0.1 10 3/mcL Normal 0.0-0.3 [facility] Comment on above: Performed By: #### G ZENOBIA VALDES ANEU, MDW, ADMACEY, CBC ####[address] [address] Basophils/100 WBC (Bld) 1.3 % Normal 0.0-2.5 [facility] Comment on above: Performed By: #### G ZENOBIA VALDES ANEU, MDW, ADMACEY, CBC ####[address] [address] Eosinophil, Absolute 0.2 10 3/mcL Normal 0.0-0.7 [facility] Comment on above: Performed By: #### G ZENOBIA VALDES ANEU, MDW, CHEN, CBC ####[address] [address] Eosinophils/100 WBC (Bld) 1.8 % Normal 0.0-6.0 [facility] Comment on above: Performed By: #### G ZENOBIA VALDES ANEU, MDW, ADMACEY, CBC ####[address] [address] Lymphocyte, Absolute 2.8 10 3/mcL Normal 0.9-4.3 [facility] Comment on above: Performed By: #### G FR, BMP, ANEU, MDW, ADIFF, CBC ####[address] [address] Lymphocytes/100 WBC (Bld) 27.0 % Normal 20.0-40.0 [facility] Comment on above: Performed By: #### G FR, BMP, ANEU, MDW, ADIFF, CBC ####[address] [address] Monocyte, Absolute 0.8 10 3/mcL Normal 0.1-1.4 [facility] Comment on above: Performed By: #### G FR, BMP, ANEU, MDW, ADIFF, CBC ####[address] [address] Monocytes/100 WBC (Bld) 8.0 % Normal 2.0-13.0 [facility] Comment on above: Performed By: #### G FR, BMP, ANEU, MDW, ADIFF, CBC ####[address] [address] Neutrophils/100 WBC (Bld) 61.9 % Normal 50.0-75.0 [facility] Comment on above: Performed By: #### G FR, BMP, ANEU, MDW, ADIFF, CBC ####[address] [address] .GFRon 05-25-2025 Estimated Glomerular Filtration Rate 81 ml/min/1.73sqm Normal [facility] Comment on above: Result Comment: [...] calculate theeGFR results. Performed By: #### G ZENOBIA VALDES ANEU, MDW, CHEN, CBC ####[address] [address] .MDWon 05-25-2025 Monocyte Distribution Width 21.37 High 0.00-20.00 [facility] Comment on above: Result Comment: For adults in ED, MDW>20.0 may be associated with a higher risk of sepsis during the first 12hrs of hospital admission Performed By: #### G , ZENOBIA, YOUNG LEVI, ADIFF, CBC ####[place] [address] .NEUABSon 05-25-2025 Neutrophil, Absolute 6.4 10 3/mcL Normal 2.3-8.1 [facility] Comment on above: Performed By: #### G , ZENOBIA, YOUNG LVEI, ADIFF, CBC ####[place] [address] BMPon 05-25-2025 BUN/Creatinine Ratio 7.4 ratio Low 10.0-22.0 [facility] Comment on above: Performed By: #### G , ZENOBIA, YOUNG LEVI, ADIFF, CBC ####[place] [address] Calcium [Mass/Vol] 9.6 mg/dL Normal 8.7-10.4 [facility] Comment on above: Performed By: #### G FR, ZENOBIA, YOUNG LEVI, ADIFF, CBC ####[place] [address] Chloride [Moles/Vol] 108 mmol/L Normal 98-110 [facility] Comment on above: Performed By: #### G FR, ZENOBIA, YOUNG LEVI, ADIFF, CBC ####[place] [address] CO2 [Moles/Vol] 26 mmol/L Normal 22-32 [facility] Comment on above: Performed By: #### G , ZENOBIA, MD GURMEETW, ADIFF, CBC ####[address] [address] Creatinine [Mass/Vol] 0.94 mg/dL Normal 0.50-1.20 [facility] Comment on above: Result Comment: Test ing performed on [employer] analyzer using enzymatic creatinine methodology. Performed By: #### G FR, BMP, GURMEET, W, ADIFF, CBC ####[place] [address] Electrolyte Balance 6.0 mEq/L Normal 4.0-15.0 [facility] Comment on above: Performed By: #### G FR, BMP, GURMEET, W, ADIFF, CBC ####[address] [address] Glucose [Mass/Vol] 92 mg/dL Normal 70-110 [facility] Comment on above: Performed By: #### G FR, ZENOBIA, GURMEET, W, ADIFF, CBC ####[place] [address] Potassium [Moles/Vol] 4.0 mmol/L Normal 3.5-5.0 [facility] Comment on above: Result Comment: Spec imen slightly hemolyzed. Performed By: #### G FR, BMP, GURMEET, MDW, ADIFF, CBC ####[address] [address] Sodium [Moles/Vol] 140 mmol/L Normal 136-145 [facility] Comment on above: Performed By: #### G FR, BMP, GURMEET, W, ADIFF, CBC ####[address] [address] Urea nitrogen [Mass/Vol] 7.0 mg/dL Low 8.0-22.0 [facility] Comment on above: Performed By: #### G FR, BMP, GURMEET, W, ADIFF, CBC ####[address] [address] CBCon 05-25-2025 Erythrocyte distribution width (RBC) [Ratio] 15.6 % High 11.5-15.5 [facility] Comment on above: Performed By: #### G FR, BMP, ANEU, MDW, ADIFF, CBC ####[place] [address] Hematocrit (Bld) [Volume fraction] 41.5 % Normal 34.0-46.0 [facility] Comment on above: Performed By: #### G FR, BMP, ANEU, MDW, ADIFF, CBC ####[place] [address] Hgb 14.1 G/dL Normal 12.0-16.0 [facility] Comment on above: Performed By: #### G FR, BMP, ANEU, MDW, ADIFF, CBC ####[place] [address] MCH (RBC) [Entitic mass] 32.9 pg Normal 27.0-33.0 [facility] Comment on above: Performed By: #### G FR, BMP, ANEU, MDW, ADIFF, CBC ####[place] [address] MCHC 34.0 G/dL Normal 32.0-36.0 [facility] Comment on above: Performed By: #### G FR, BMP, ANEU, MDW, ADIFF, CBC ####[place] [address] MCV (RBC) [Entitic vol] 96.7 fL Normal 80.0-99.0 [facility] Comment on above: Performed By: #### G FR, BMP, ANEU, MDW, ADIFF, CBC ####[place] [address] Platelet 431 10 3/mcL Normal 150-450 [facility] Comment on above: Performed By: #### G FR, BMP, ANEU, MDW, ADIFF, CBC ####[place] [address] Platelet mean volume (Bld) [Entitic vol] 7.1 fL Normal 6.6-10.5 [facility] Comment on above: Performed By: #### G FR, BMP, ANEU, MDW, ADIFF, CBC ####[place] [id number] [place] [address] RBC 4.29 10 6/mcL Normal 4.10-5.30 [facility] Comment on above: Performed By: #### G , ZENOBIA, GURMEET, YOUNG, CHEN, CBC ####[facility] [place] [address] WBC 10.3 10 3/mcL Normal 4.5-10.8 [facility] Comment on above: Performed By: #### G , ZENOBIA, GURMEET, YOUNG, ADIFF, CBC ####[facility] [place] [address] ABDOMEN/PELVIS W/O CONTRA STon 05-25-2025 CT ABDOMEN/PELVIS W/O CONTRAST Normal [facility] LABORATORYOrdered By: Ricky Mary on 05-25-2025 Beta HCG ( test) Ql (U) Negative (05/25/25 10:32 PM) [facility] Work Phone: LABORATORYOrdered By: Rosalinda Tello [...] Urine SS UA Specimen Type Clean Catch (7/23/25 10:20 PM) Normal AH Auto Urine SS UA Urobilinogen 1.0 [...] 32 mEq/L AH ADM SS Creatinine [Mass/Vol] 0.94 mg/dL Normal 0.50 - 1.20 mg/dL AH ADM SS Comment on above: Interpretive Data: T esting performed on [employer] analyzer using enzymatic creatinine methodology. Electrolyte Balance 6.0 mEq/L Normal 4.0 - 15 .0 mEq/L AH ADM SS Eosinophils (Bld) [#/Vol] 0.2 103/mcL Normal 0.0 - 0.7 10^3/mcL AH Workflow SS Eosinophils/100 WBC (Bld) 1.8 % Normal 0.0 - 6.0 % AH Workflow SS Erythrocyte distribution width (RBC) [Ratio] 15.6 % High 11.5 - 15.5 % AH Workflow SS Estimated Glomerular Filtration Rate 81 ml/min/1.73sqm Invalid Interpretation Code AH ADM SS [...] 92 mg/dL Normal 70 - 110 mg/dL AH ADM SS Hematocrit (Bld) [Volume fraction] 41.5 [...] SS UAon 05-25-2025 Color (U) Yellow Normal [facility] Comment on above: Performed By: #### U A ####[place] [address] Glucose (U) [Mass/Vol] Negative Normal Negative [facility] Comment on above: Performed By: #### U A ####[place] [address] Ketones Ql (U) Negative Normal Neg-Trace [facility] Comment on above: Performed By: #### U A ####[place] [address] UA Appear Clear Normal Clear [facility] Comment on above: Performed By: #### U A ####[place] [address] UA Blood Negative Normal Neg-Trace [facility] Comment on above: Performed By: #### U A ####[place] [address] UA Leuk Est Negative Normal Negative [facility] Comment on above: Performed By: #### U A ####[place] [address] UA Nitrite Negative Normal Negative [facility] Comment on above: Performed By: #### U A ####[place] [address] UA pH 8.0 Normal 5.0 - 8.0 [facility] Comment on above: Performed By: #### U A ####[place] [address] UA Protein Negative Normal Negative [facility] Comment on above: Performed By: #### U A ####[place] [address] UA Spec Grav 1.010 Normal 1.006-1.029 [facility] Comment on above: Performed By: #### U A ####[place] [address] UA Specimen Type Clean Catch Normal [facility] Comment on above: Performed By: #### U A ####[place] [address] UA Urobilinogen 1.0 E.U./dL Normal 0.2-1.0 [facility] Comment on above: Performed By: #### U A ####[place] [address] Urobilinogen (U) [Mass/Vol] Negative Normal Neg-Trace [facility] Comment on above: Performed By: #### U A ####[place] [address] .Auto Diffon 05-09-2025 Basophil, Absolute 0.1 10 3/mcL Normal 0.0-0.3 [facility] Comment on above: Performed By: #### C BC, CMP, MDW, GFR, LIP, ADIFF, ANEU ####[place] [address] Basophils/100 WBC (Bld) 1.0 % Normal 0.0-2.5 [facility] Comment on above: Performed By: #### C BC, CMP, MDW, GFR, LIP, ADIFF, ANEU ####[place] [address] Eosinophil, Absolute 0.2 10 3/mcL Normal 0.0-0.7 [facility] Comment on above: Performed By: #### C BC, CMP, MDW, GFR, LIP, ADIFF, ANEU ####[place] [address] Eosinophils/100 WBC (Bld) 1.9 % Normal 0.0-6.0 [facility] Comment on above: Performed By: #### C BC, CMP, MDW, GFR, LIP, ADIFF, ANEU ####[address] [address] Lymphocyte, Absolute 2.4 10 3/mcL Normal 0.9-4.3 [facility] Comment on above: Performed By: #### C BC, CMP, MDW, GFR, LIP, ADIFF, ANEU ####[address] [address] Lymphocytes/100 WBC (Bld) 27.3 % Normal 20.0-40.0 [facility] Comment on above: Performed By: #### C BC, CMP, MDW, GFR, LIP, ADIFF, ANEU ####[address] [address] Monocyte, Absolute 0.7 10 3/mcL Normal 0.1-1.4 [facility] Comment on above: Performed By: #### C BC, CMP, MDW, GFR, LIP, ADIFF, ANEU ####[address] [address] Monocytes/100 WBC (Bld) 7.9 % Normal 2.0-13.0 [facility] Comment on above: Performed By: #### C BC, CMP, MDW, GFR, LIP, ADIFF, ANEU ####[address] [address] Neutrophils/100 WBC (Bld) 61.9 % Normal 50.0-75.0 [facility] Comment on above: Performed By: #### C BC, CMP, MDW, GFR, LIP, ADIFF, ANEU ####[address] [address] .GFRon 05-09-2025 Estimated Glomerular Filtration Rate 90 ml/min/1.73sqm Normal [facility] Comment on above: Result Comment: [...] BC, CMP, MDW, GFR, LIP, ADIFF, ANEU ####[address] [address] .MDWon 05-09-2025 Monocyte Distribution Width 19.78 Normal 0.00-20.00 [facility] Comment on above: Result Comment: For ED adult patients suspected of sepsis, MDW<=20.0 does not rule out sepsis or risk of sepsis Performed By: #### C BC, CMP, MDW, GFR, LIP, ADIFF, ANEU ####[place] [address] .NEUABSon 05-09-2025 Neutrophil, Absolute 5.4 10 3/mcL Normal 2.3-8.1 [facility] Comment on above: Performed By: #### C BC, CMP, MDW, GFR, LIP, ADIFF, ANEU ####[place] [address] BACTERIAL WOUND CULTURE [CCL ]on 05-09-2025 BACTERIAL WOUND CULTURE [CCL] Normal [facility] Comment on above: Result Comment: _CUL TURE WOUND [CCL]_SEE SCANNED REPORT Performed By: #### 2 27171 ####[facility],[address] [place] [address] CBCon 05-09-2025 Erythrocyte distribution width (RBC) [Ratio] 15.0 % Normal 11.5-15.5 [facility] Comment on above: Performed By: #### C BC, CMP, MDW, GFR, LIP, ADIFF, ANEU ####[place] [address] Hematocrit (Bld) [Volume fraction] 35.4 % Normal 34.0-46.0 [facility] Comment on above: Performed By: #### C BC, CMP, MDW, GFR, LIP, ADIFF, ANEU ####[place] [address] Hgb 12.0 G/dL Normal 12.0-16.0 [facility] Comment on above: Performed By: #### C BC, CMP, MDW, GFR, LIP, ADIFF, ANEU ####[place] [address] MCH (RBC) [Entitic mass] 32.3 pg Normal 27.0-33.0 [facility] Comment on above: Performed By: #### C BC, CMP, MDW, GFR, LIP, ADIFF, ANEU ####[place] [address] MCHC 33.9 G/dL Normal 32.0-36.0 [facility] Comment on above: Performed By: #### C BC, CMP, MDW, GFR, LIP, ADIFF, ANEU ####[place] [address] MCV (RBC) [Entitic vol] 95.0 fL Normal 80.0-99.0 [facility] Comment on above: Performed By: #### C BC, CMP, MDW, GFR, LIP, ADIFF, ANEU ####[place] [address] Platelet 347 10 3/mcL Normal 150-450 [facility] Comment on above: Performed By: #### C BC, CMP, MDW, GFR, LIP, ADIFF, ANEU ####[place] [address] Platelet mean volume (Bld) [Entitic vol] 6.9 fL Normal 6.6-10.5 [facility] Comment on above: Performed By: #### C BC, CMP, MDW, GFR, LIP, ADIFF, ANEU ####[place] [address] RBC 3.73 10 6/mcL Low 4.10-5.30 [facility] Comment on above: Performed By: #### C BC, CMP, MDW, GFR, LIP, ADIFF, ANEU ####[place] [id number] WBC 8.7 10 3/mcL Normal 4.5-10.8 [facility] Comment on above: Performed By: #### C BC, CMP, MDW, GFR, LIP, ADIFF, ANEU ####[place] [id number] CMPon 05-09-2025 Albumin Level 3.7 G/dL Normal 3.2-4.8 [facility] Comment on above: Performed By: #### C BC, CMP, MDW, GFR, LIP, ADIFF, ANEU ####[place] [address] Albumin/Globulin [Mass ratio] 1.3 {ratio} Normal 0.9-1.6 [facility] Comment on above: Performed By: #### C BC, CMP, MDW, GFR, LIP, ADIFF, ANEU ####[place] [address] ALP [Catalytic activity/Vol] 71 U/L Normal 38-126 [facility] Comment on above: Performed By: #### C BC, CMP, MDW, GFR, LIP, ADIFF, ANEU ####[place] [address] ALT [Catalytic activity/Vol] 9 U/L Low 10-49 [facility] Comment on above: Performed By: #### C BC, CMP, MDW, GFR, LIP, ADIFF, ANEU ####[place] [address] AST [Catalytic activity/Vol] 18 U/L Normal 8-34 [facility] Comment on above: Performed By: #### C BC, CMP, MDW, GFR, LIP, ADIFF, ANEU ####[place] [address] Bili Total <0.20 Normal 0.20-1.20 [facility] Comment on above: Result Comment: Use of this assay is not recommended for patients undergoing treatment with eltrombopag due to the potential for falsely elevated results. Performed By: #### C BC, CMP, MDW, GFR, LIP, ADIFF, ANEU ####[place] [address] BUN/Creatinine Ratio 9.3 ratio Low 10.0-22.0 [facility] Comment on above: Performed By: #### C BC, CMP, MDW, GFR, LIP, ADIFF, ANEU ####[address] [address] Calcium [Mass/Vol] 9.5 mg/dL Normal 8.7-10.4 [facility] Comment on above: Performed By: #### C BC, CMP, MDW, GFR, LIP, ADIFF, ANEU ####[address] [address] Chloride [Moles/Vol] 103 mmol/L Normal 98-110 [facility] Comment on above: Performed By: #### C BC, CMP, MDW, GFR, LIP, ADIFF, ANEU ####[place] [id number] CO2 [Moles/Vol] 28 mmol/L Normal 22-32 [facility] Comment on above: Performed By: #### C BC, CMP, MDW, GFR, LIP, ADIFF, ANEU ####[place] [id number] Creatinine [Mass/Vol] 0.86 mg/dL Normal 0.50-1.20 [facility] Comment on above: Result Comment: Test ing performed on [employer] analyzer using enzymatic creatinine methodology. Performed By: #### C BC, CMP, MDW, GFR, LIP, ADIFF, ANEU ####[place] [id number] Electrolyte Balance 12.0 mEq/L Normal 4.0-15.0 [facility] Comment on above: Performed By: #### C BC, CMP, MDW, GFR, LIP, ADIFF, ANEU ####[address] [address] Globulin 2.9 G/dL Normal 2.5-4.2 [facility] Comment on above: Performed By: #### C BC, CMP, MDW, GFR, LIP, ADIFF, ANEU ####[place] [id number] Glucose [Mass/Vol] 93 mg/dL Normal 70-110 [facility] Comment on above: Performed By: #### C BC, CMP, MDW, GFR, LIP, ADIFF, ANEU ####[address] [address] Potassium [Moles/Vol] 4.0 mmol/L Normal 3.5-5.0 [facility] Comment on above: Performed By: #### C BC, CMP, MDW, GFR, LIP, ADIFF, ANEU ####[address] [address] Sodium [Moles/Vol] 143 mmol/L Normal 136-145 [facility] Comment on above: Performed By: #### C BC, CMP, MDW, GFR, LIP, ADIFF, ANEU ####[address] [address] Total Protein 6.6 G/dL Normal 5.7-8.2 [facility] Comment on above: Performed By: #### C BC, CMP, MDW, GFR, LIP, ADIFF, ANEU ####[address] [address] Urea nitrogen [Mass/Vol] 8.0 mg/dL Normal 8.0-22.0 [facility] Comment on above: Performed By: #### C BC, CMP, MDW, GFR, LIP, ADIFF, ANEU ####[address] [address] [address] ABDOMEN/PELVIS W/O CONTRA STon 05-09-2025 CT ABDOMEN/PELVIS W/O CONTRAST Normal [facility] LABORATORYOrdered By: Guero Zendejas on [...] 10. 4 mg/dL ADM SS Chloride [Moles/Vol] 103 mmol/L Normal 98 - 11 0 mEq/L AH ADM SS CO2 [Moles/Vol] 28 mmol/L Normal 22 - 32 mEq/L ADM SS Creatinine [Mass/Vol] 0.86 mg/dL Normal 0.50 - 1.20 mg/dL ADM SS Comment on above: Interpretive Data: T esting performed on [employer] analyzer using enzymatic creatinine methodology. Electrolyte Balance [...] 12.0 G/dL Normal 12.0 - 16.0 G/dL AH Workflow SS Lipase [Catalytic activity/Vol] 23 U/L [...] 05-09-2025 Lipase Level 23 U/L Normal 12-53 [facility] Comment on above: Performed By: #### C BC, CMP, MDW, GFR, LIP, ADIFF, ANEU ####[place] [address] UAon 05-09-2025 Color (U) Yellow Normal [facility] Comment on above: Performed By: #### U A, UAMIC ####[place] [address] Glucose (U) [Mass/Vol] Negative Normal Negative [facility] Comment on above: Performed By: #### U A, UAMIC ####[place] [address] Ketones Ql (U) Negative Normal Neg-Trace [facility] Comment on above: Performed By: #### U A, UAMIC ####[place] [address] UA Appear Clear Normal Clear [facility] Comment on above: Performed By: #### U A, UAMIC ####[place] [address] UA Blood Trace Normal Neg-Trace [facility] Comment on above: Performed By: #### U A, UAMIC ####[place] [address] UA Leuk Est Large Abnormal Negative [facility] Comment on above: Performed By: #### U A, UAMIC ####[place] [address] UA Nitrite Negative Normal Negative [facility] Comment on above: Performed By: #### U A, UAMIC ####[place] [address] UA pH 8.5 Abnormal 5.0 - 8.0 [facility] Comment on above: Performed By: #### U A, UAMIC ####[place] [address] UA Protein Trace Normal Negative [facility] Comment on above: Performed By: #### U A, UAMIC ####[place] [address] UA Spec Grav <=1.005 Abnormal 1.006-1.029 [facility] Comment on above: Performed By: #### U A, UAMIC ####[place] [address] UA Specimen Type Void Normal [facility] Comment on above: Performed By: #### U A, UAMIC ####[place] [address] UA Urobilinogen 0.2 E.U./dL Normal 0.2-1.0 [facility] Comment on above: Performed By: #### U A, UAMIC ####[place] [address] Urobilinogen (U) [Mass/Vol] Negative Normal Neg-Trace [facility] Comment on above: Performed By: #### U A, UAMIC ####[place] [address] UAMICon 05-09-2025 UA Bacteria Trace Abnormal Negative [facility] Comment on above: Performed By: #### U A, UAMIC ####[place] [address] UA Mucous Trace Normal [facility] Comment on above: Performed By: #### U A, UAMIC ####[place] [address] UA RBC 0-2 Normal 0-2 [facility] Comment on above: Performed By: #### U A, UAMIC ####[place] [address] UA Squam Epithelial 0-2 Normal 0-20 [facility] Comment on above: Performed By: #### U A, UAMIC ####[place] [address] UA WBC 5-10 Abnormal 0-5 [facility] Comment on above: Performed By: #### U A, UAMIC ####[address] [address] CBLon 05-08-2025 CBL Normal [facility] .Auto Diffon 05-07-2025 Basophil, Absolute 0.1 10 3/mcL Normal 0.0-0.3 [facility] Comment on above: Performed By: #### B MP, ANEU, CBC, MG, ADIFF, GFR ####[address] [address] Basophils/100 WBC (Bld) 0.9 % Normal 0.0-2.5 [facility] Comment on above: Performed By: #### B MP, ANEU, CBC, MG, ADIFF, GFR ####[address] [address] Eosinophil, Absolute 0.3 10 3/mcL Normal 0.0-0.7 [facility] Comment on above: Performed By: #### B MP, ANEU, CBC, MG, ADIFF, GFR ####[address] [address] Eosinophils/100 WBC (Bld) 3.1 % Normal 0.0-6.0 [facility] Comment on above: Performed By: #### B MP, ANEU, CBC, MG, ADIFF, GFR ####[address] [address] Lymphocyte, Absolute 2.0 10 3/mcL Normal 0.9-4.3 [facility] Comment on above: Performed By: #### B MP, ANEU, CBC, MG, ADIFF, GFR ####[address] [address] Lymphocytes/100 WBC (Bld) 22.6 % Normal 20.0-40.0 [facility] Comment on above: Performed By: #### B MP, ANEU, CBC, MG, ADIFF, GFR ####[address] [address] Monocyte, Absolute 0.8 10 3/mcL Normal 0.1-1.4 [facility] Comment on above: Performed By: #### B MP, ANEU, CBC, MG, ADIFF, GFR ####[address] [address] Monocytes/100 WBC (Bld) 9.2 % Normal 2.0-13.0 [facility] Comment on above: Performed By: #### B MP, ANEU, CBC, MG, ADIFF, GFR ####[address] [address] Neutrophils/100 WBC (Bld) 64.2 % Normal 50.0-75.0 [facility] Comment on above: Performed By: #### B MP, ANEU, CBC, MG, ADIFF, GFR ####[address] [address] .GFRon 05-07-2025 Estimated Glomerular Filtration Rate 94 ml/min/1.73sqm Normal [facility] Comment on above: Result Comment: [...] B MP, ANEU, CBC, MG, ADIFF, GFR ####[address] [address] .NEUABSon 05-07-2025 Neutrophil, Absolute 5.7 10 3/mcL Normal 2.3-8.1 [facility] Comment on above: Performed By: #### B MP, ANEU, CBC, MG, ADIFF, GFR ####[address] [address] BMPon 05-07-2025 BUN/Creatinine Ratio Unable to Calculate Normal 10.0-2 2.0 [facility] Comment on above: Result Comment: Unab le to calculate this test result accurately. Results used to calculate this test are outside the reportable range. Performed By: #### B MP, ANEU, CBC, MG, ADIFF, GFR ####[address] [address] Urea nitrogen [Mass/Vol] mg/dL Low 8.0-22.0 [facility] Comment on above: Performed By: #### B MP, ANEU, CBC, MG, ADIFF, GFR ####[address] [address] Calcium [Mass/Vol] 9.0 mg/dL Normal 8.7-10.4 [facility] Comment on above: Performed By: #### B MP, ANEU, CBC, MG, ADIFF, GFR ####[address] [address] Chloride [Moles/Vol] 109 mmol/L Normal 98-110 [facility] Comment on above: Performed By: #### B MP, ANEU, CBC, MG, ADIFF, GFR ####[address] [address] CO2 [Moles/Vol] 26 mmol/L Normal 22-32 [facility] Comment on above: Performed By: #### B MP, ANEU, CBC, MG, ADIFF, GFR ####[address] [address] Creatinine [Mass/Vol] 0.83 mg/dL Normal 0.50-1.20 [facility] Comment on above: Result Comment: Test ing performed on [employer] analyzer using enzymatic creatinine methodology. Performed By: #### B MP, ANEU, CBC, MG, ADIFF, GFR ####[address] [address] Electrolyte Balance 7.0 mEq/L Normal 4.0-15.0 [facility] Comment on above: Performed By: #### B MP, ANEU, CBC, MG, ADIFF, GFR ####[address] [address] Glucose [Mass/Vol] 91 mg/dL Normal 70-110 [facility] Comment on above: Performed By: #### B MP, ANEU, CBC, MG, ADIFF, GFR ####[place] [address] Potassium [Moles/Vol] 4.2 mmol/L Normal 3.5-5.0 [facility] Comment on above: Performed By: #### B MP, ANEU, CBC, MG, ADIFF, GFR ####[place] [address] Sodium [Moles/Vol] 142 mmol/L Normal 136-145 [facility] Comment on above: Performed By: #### B MP, ANEU, CBC, MG, ADIFF, GFR ####[place] [address] CBCon 05-07-2025 Erythrocyte distribution width (RBC) [Ratio] 15.4 % Normal 11.5-15.5 [facility] Comment on above: Performed By: #### B MP, ANEU, CBC, MG, ADIFF, GFR ####[place] [address] Hematocrit (Bld) [Volume fraction] 36.7 % Normal 34.0-46.0 [facility] Comment on above: Performed By: #### B MP, ANEU, CBC, MG, ADIFF, GFR ####[place] [address] Hgb 12.2 G/dL Normal 12.0-16.0 [facility] Comment on above: Performed By: #### B MP, ANEU, CBC, MG, ADIFF, GFR ####[place] [address] MCH (RBC) [Entitic mass] 32.8 pg Normal 27.0-33.0 [facility] Comment on above: Performed By: #### B MP, ANEU, CBC, MG, ADIFF, GFR ####[place] [address] MCHC 33.4 G/dL Normal 32.0-36.0 [facility] Comment on above: Performed By: #### B MP, ANEU, CBC, MG, ADIFF, GFR ####[place] [address] MCV (RBC) [Entitic vol] 98.4 fL Normal 80.0-99.0 [facility] Comment on above: Performed By: #### B MP, ANEU, CBC, MG, ADIFF, GFR ####[place] [address] Platelet 318 10 3/mcL Normal 150-450 [facility] Comment on above: Performed By: #### B MP, ANEU, CBC, MG, ADIFF, GFR ####[place] [address] Platelet mean volume (Bld) [Entitic vol] 7.0 fL Normal 6.6-10.5 [facility] Comment on above: Performed By: #### B MP, ANEU, CBC, MG, ADIFF, GFR ####[place] [address] RBC 3.73 10 6/mcL Low 4.10-5.30 [facility] Comment on above: Performed By: #### B MP, ANEU, CBC, MG, ADIFF, GFR ####[place] [address] WBC 8.8 10 3/mcL Normal 4.5-10.8 [facility] Comment on above: Performed By: #### B MP, ANEU, CBC, MG, ADIFF, GFR ####[place] [address] LABORATORYOrdered By: SYSTEM SYSTEM on 05-07-2025 Basophils [...] above: Interpretive Data: T esting performed on [employer] analyzer using enzymatic creatinine methodology. Electrolyte Balance [...] 8.8 103/mcL Normal 4.5 - 10.8 10^3/mcL Workflow SS LABORATORYOrdered By: Jennifer Ching on [...] 05-07-2025 Magnesium [Mass/Vol] 2.0 mg/dL Normal 1.6-2.4 [facility] Comment on above: Performed By: #### B MP, ANEU, CBC, MG, ADIFF, GFR ####[place] [address] URINE CULTURE [CCL]on 2024 Bacteria identified Cx Nom (U) Normal [facility] Comment on above: Performed By: #### 2 [id number] ####[facility],[address] [place] [address] .Auto Diffon 05-05-2025 Basophil, Absolute 0.1 10 3/mcL Normal 0.0-0.3 [facility] Comment on above: Performed By: #### C BC, ANEU, ADIFF ####[address] [address] Basophils/100 WBC (Bld) 1.0 % Normal 0.0-2.5 [facility] Comment on above: Performed By: #### C BC, ANEU, ADIFF ####[address] [address] Eosinophil, Absolute 0.2 10 3/mcL Normal 0.0-0.7 [facility] Comment on above: Performed By: #### C BC, ANEU, ADIFF ####[address] [address] Eosinophils/100 WBC (Bld) 3.0 % Normal 0.0-6.0 [facility] Comment on above: Performed By: #### C BC, ANEU, ADIFF ####[address] [address] Lymphocyte, Absolute 2.3 10 3/mcL Normal 0.9-4.3 [facility] Comment on above: Performed By: #### C BC, ANEU, ADIFF ####[address] [address] Lymphocytes/100 WBC (Bld) 32.4 % Normal 20.0-40.0 [facility] Comment on above: Performed By: #### C BC, ANEU, ADIFF ####[address] [address] Monocyte, Absolute 0.6 10 3/mcL Normal 0.1-1.4 [facility] Comment on above: Performed By: #### C BC, ANEU, ADIFF ####[address] [address] Monocytes/100 WBC (Bld) 8.2 % Normal 2.0-13.0 [facility] Comment on above: Performed By: #### C GUMREET PERES, ADIFF ####[place] [id number] [place] [address] Neutrophils/100 WBC (Bld) 55.4 % Normal 50.0-75.0 [facility] Comment on above: Performed By: #### C GURMEET PERES, ADIFF ####[address] [address] .GFRon 05-05-2025 Estimated Glomerular Filtration Rate 84 ml/min/1.73sqm Normal [facility] Comment on above: Result Comment: [...] results. Performed By: #### B MP, GFR ####[address] [address] .NEUABSon 05-05-2025 Neutrophil, Absolute 3.9 10 3/mcL Normal 2.3-8.1 [facility] Comment on above: Performed By: #### C GURMEET PERES, ADIFF ####[place] [id number] [place] [address] BMPon 05-05-2025 BUN/Creatinine Ratio 6.6 ratio Low 10.0-22.0 [facility] Comment on above: Order Comment: Josh camejo for 0501 the morning of patient admission. Performed By: #### B MP, GFR ####[address] [address] Calcium [Mass/Vol] 8.8 mg/dL Normal 8.7-10.4 [facility] Comment on above: Order Comment: Routi ne for 0501 the morning of patient admission. Performed By: #### B MP, GFR ####[place] [id number] Chloride [Moles/Vol] 111 mmol/L High 98-110 [facility] Comment on above: Order Comment: Routi ne for 0501 the morning of patient admission. Performed By: #### B MP, GFR ####[place] [id number] CO2 [Moles/Vol] 22 mmol/L Normal 22-32 [facility] Comment on above: Order Comment: Routi ne for 0501 the morning of patient admission. Performed By: #### B MP, GFR ####[place] [address] Creatinine [Mass/Vol] 0.91 mg/dL Normal 0.50-1.20 [facility] Comment on above: Order Comment: Routi ne for 0501 the morning of patient admission. Result Comment: Test ing performed on [employer] analyzer using enzymatic creatinine methodology. Performed By: #### B MP, GFR ####[place] [address] Electrolyte Balance 9.0 mEq/L Normal 4.0-15.0 [facility] Comment on above: Order Comment: Routi ne for 0501 the morning of patient admission. Performed By: #### B MP, GFR ####[place] [id number] Glucose [Mass/Vol] 84 mg/dL Normal 70-110 [facility] Comment on above: Order Comment: Routi ne for 0501 the morning of patient admission. Performed By: #### B MP, GFR ####[place] [id number] Potassium [Moles/Vol] 4.1 mmol/L Normal 3.5-5.0 [facility] Comment on above: Order Comment: Routi ne for 0501 the morning of patient admission. Performed By: #### B MP, GFR ####[place] [id number] Sodium [Moles/Vol] 142 mmol/L Normal 136-145 [facility] Comment on above: Order Comment: Routi ne for 0501 the morning of patient admission. Performed By: #### B MP, GFR ####[place] [address] Urea nitrogen [Mass/Vol] 6.0 mg/dL Low 8.0-22.0 [facility] Comment on above: Order Comment: Routi ne for 0501 the morning of patient admission. Performed By: #### B MP, GFR ####[place] [address] CBCon 05-05-2025 Erythrocyte distribution width (RBC) [Ratio] 15.5 % Normal 11.5-15.5 [facility] Comment on above: Order Comment: Routi ne for 0501 the morning of patient admission. Performed By: #### C GURMEET PERES, ADIFF ####[place] [address] Hematocrit (Bld) [Volume fraction] 33.8 % Low 34.0-46.0 [facility] Comment on above: Order Comment: Routi ne for 0501 the morning of patient admission. Performed By: #### C GURMEET PERES, ADIFF ####[place] [address] Hgb 11.7 G/dL Low 12.0-16.0 [facility] Comment on above: Order Comment: Routi ne for 0501 the morning of patient admission. Performed By: #### C BCGURMEET, ADIFF ####[place] [address] MCH (RBC) [Entitic mass] 33.5 pg High 27.0-33.0 [facility] Comment on above: Order Comment: Routi ne for 0501 the morning of patient admission. Performed By: #### C BC ANEU, ADIFF ####[place] [address] MCHC 34.6 G/dL Normal 32.0-36.0 [facility] Comment on above: Order Comment: Routi ne for 0501 the morning of patient admission. Performed By: #### C GURMEET PERES, ADIFF ####[place] [address] MCV (RBC) [Entitic vol] 96.8 fL Normal 80.0-99.0 [facility] Comment on above: Order Comment: Routi ne for 0501 the morning of patient admission. Performed By: #### C BCGURMEET, ADIFF ####[place] [address] Platelet 350 10 3/mcL Normal 150-450 [facility] Comment on above: Order Comment: Routi ne for 0501 the morning of patient admission. Performed By: #### C GURMEET PERES, ADIFF ####[place] [address] Platelet mean volume (Bld) [Entitic vol] 7.0 fL Normal 6.6-10.5 [facility] Comment on above: Order Comment: Routi ne for 0501 the morning of patient admission. Performed By: #### C GURMEET PERES, ADIFF ####[place] [address] RBC 3.49 10 6/mcL Low 4.10-5.30 [facility] Comment on above: Order Comment: Routi ne for 0501 the morning of patient admission. Performed By: #### C BCGURMEET, ADIFF ####[place] [address] WBC 7.1 10 3/mcL Normal 4.5-10.8 [facility] Comment on above: Order Comment: Routi ne for 0501 the morning of patient admission. Performed By: #### C BC ANEU, ADIFF ####[place] [address] IR NEPHROSTOMY TUBEon 2024 IR NEPHROSTOMY TUBE Normal [facility] LABORATORYOrdered By: SYSTEM SYSTEM on 05-05-2025 [...] above: Interpretive Data: T esting performed on [employer] analyzer using enzymatic creatinine methodology. Electrolyte Balance [...] test) Ql (U) Negative (05/05/25 12:44 AM) [facility] Work Phone: .Auto Diffon 05-04-2025 Basophil, Absolute 0.1 10 3/mcL Normal 0.0-0.3 [facility] Comment on above: Performed By: #### B MP, CBC, GFR, ADIFFGURMEET MDW ####[address] [address] Basophils/100 WBC (Bld) 0.8 % Normal 0.0-2.5 [facility] Comment on above: Performed By: #### B MP, CBC, GFR, ADIFFGURMEET MDW ####[address] [address] Eosinophil, Absolute 0.1 10 3/mcL Normal 0.0-0.7 [facility] Comment on above: Performed By: #### B MP, CBC, GFR, ADIFFGURMEET MDW ####[address] [address] Eosinophils/100 WBC (Bld) 1.2 % Normal 0.0-6.0 [facility] Comment on above: Performed By: #### B MP, CBC, GFR, ADIFFGURMEET MDW ####[address] [address] Lymphocyte, Absolute 2.2 10 3/mcL Normal 0.9-4.3 [facility] Comment on above: Performed By: #### B MP, CBC, GFR, ADIFFGURMEET MDW ####[address] [address] Lymphocytes/100 WBC (Bld) 28.8 % Normal 20.0-40.0 [facility] Comment on above: Performed By: #### B MP, CBC, GFR, ADIFFGURMEET MDW ####[address] [address] Monocyte, Absolute 0.6 10 3/mcL Normal 0.1-1.4 [facility] Comment on above: Performed By: #### B MP, CBC, GFR, ADIFFGURMEET MDW ####[address] [address] Monocytes/100 WBC (Bld) 7.4 % Normal 2.0-13.0 [facility] Comment on above: Performed By: #### B MP, CBC, GFR, ADIFFGURMEET MDW ####[place] [address] Neutrophils/100 WBC (Bld) 61.8 % Normal 50.0-75.0 [facility] Comment on above: Performed By: #### B MP, CBC, GFR, ADIFFGURMEET MDW ####[place] [address] .GFRon 05-04-2025 Estimated Glomerular Filtration Rate 83 ml/min/1.73sqm Normal [facility] Comment on above: Result Comment: [...] CBC, GFR, ADGURMEET CHOUDHURY MDW ####[place] [address] .MDWon 05-04-2025 Monocyte Distribution Width 19.63 Normal 0.00-20.00 [facility] Comment on above: Result Comment: For ED adult patients suspected of sepsis, MDW<=20.0 does not rule out sepsis or risk of sepsis Performed By: #### B MP, CBC, GFR, ADIFFGURMEET MDW ####[place] [address] .NEUABSon 05-04-2025 Neutrophil, Absolute 4.6 10 3/mcL Normal 2.3-8.1 [facility] Comment on above: Performed By: #### B MP, CBC, GFR, ADIFFGURMEET MDW ####[place] [address] BMPon 05-04-2025 BUN/Creatinine Ratio Unable to Calculate Normal 10.0-2 2.0 [facility] Comment on above: Result Comment: Unab le to calculate this test result accurately. Results used to calculate this test are outside the reportable range. Performed By: #### B MP, CBC, GFR, ADGURMEET CHOUDHURY MDW ####[address] [address] Urea nitrogen [Mass/Vol] mg/dL Low 8.0-22.0 [facility] Comment on above: Performed By: #### B MP, CBC, GFR, ADGURMEET CHOUDHURY MDW ####[address] [address] Calcium [Mass/Vol] 9.2 mg/dL Normal 8.7-10.4 [facility] Comment on above: Performed By: #### B MP, CBC, GFR, GURMEET SIDDIQUI MDW ####[address] [address] Chloride [Moles/Vol] 109 mmol/L Normal 98-110 [facility] Comment on above: Performed By: #### B MP, CBC, GFR, GURMEET SIDDIQUI MDW ####[address] [address] CO2 [Moles/Vol] 25 mmol/L Normal 22-32 [facility] Comment on above: Performed By: #### B MP, CBC, GFR, GURMEET SIDDIQUI MDW ####[address] [address] Creatinine [Mass/Vol] 0.92 mg/dL Normal 0.50-1.20 [facility] Comment on above: Result Comment: Test ing performed on [employer] analyzer using enzymatic creatinine methodology. Performed By: #### B MP, CBC, GFR, GURMEET SIDDIQUI MDW ####[address] [address] Electrolyte Balance 8.0 mEq/L Normal 4.0-15.0 [facility] Comment on above: Performed By: #### B MP, CBC, GFR, ADGURMEET CHOUDHURY MDW ####[place] [address] Glucose [Mass/Vol] 91 mg/dL Normal 70-110 [facility] Comment on above: Performed By: #### B MP, CBC, GFR, GURMEET SIDDIQUI MDW ####[place] [address] Potassium [Moles/Vol] 4.2 mmol/L Normal 3.5-5.0 [facility] Comment on above: Performed By: #### B MP, CBC, GFR, GURMEET SIDDIQUI MDW ####[place] [address] Sodium [Moles/Vol] 142 mmol/L Normal 136-145 [facility] Comment on above: Performed By: #### B MP, CBC, GFR, GURMEET SIDDIQUI MDW ####[place] [address] CBCon 05-04-2025 Erythrocyte distribution width (RBC) [Ratio] 15.4 % Normal 11.5-15.5 [facility] Comment on above: Performed By: #### B MP, CBC, GFR, GURMEET SIDDIQUI MDW ####[place] [address] Hematocrit (Bld) [Volume fraction] 35.2 % Normal 34.0-46.0 [facility] Comment on above: Performed By: #### B MP, CBC, GFR, GURMEET SIDDIQUI MDW ####[place] [address] Hgb 12.6 G/dL Normal 12.0-16.0 [facility] Comment on above: Performed By: #### B MP, CBC, GFR, GURMEET SIDDIQUI MDW ####[place] [address] MCH (RBC) [Entitic mass] 33.7 pg High 27.0-33.0 [facility] Comment on above: Performed By: #### B MP, CBC, GFR, GURMEET SIDDIQUI MDW ####[place] [address] MCHC 35.7 G/dL Normal 32.0-36.0 [facility] Comment on above: Performed By: #### B MP, CBC, GFRCHEN ANEU, MDW ####[place] [address] MCV (RBC) [Entitic vol] 94.3 fL Normal 80.0-99.0 [facility] Comment on above: Performed By: #### B MP, CBC, GFRCHEN ANEU, MDW ####[place] [address] Platelet 336 10 3/mcL Normal 150-450 [facility] Comment on above: Performed By: #### B LUIS, CBC, GFRCHEN ANEU, MDW ####[place] [address] Platelet mean volume (Bld) [Entitic vol] 6.6 fL Normal 6.6-10.5 [facility] Comment on above: Performed By: #### B MP, CBC, GFRCHEN ANEU, MDW ####[place] [address] RBC 3.73 10 6/mcL Low 4.10-5.30 [facility] Comment on above: Performed By: #### B MP, CBC, GFRCHEN ANEU, MDW ####[place] [address] WBC 7.5 10 3/mcL Normal 4.5-10.8 [facility] Comment on above: Performed By: #### B MP, CBC, GFRCHEN ANEU, MDW ####[place] [id number] CURon 05-04-2025 CUR Normal [facility] ED MED ADMINISTRATION DETAIL on 05-04-2025 ED MED ADMINISTRATION DETAIL Normal [facility] ED NURSES CLINICAL NOTEon ED NURSES CLINICAL NOTE Normal [facility] ED ORDER SHEET (CPOE ONLY)on 05-04-2025 ED ORDER SHEET (CPOE ONLY) Normal [facility] ED PHYSICIAN CLINICAL REPORT on 05-04-2025 ED PHYSICIAN CLINICAL REPORT Normal [facility] ED SUPER BILLon 05-04-2025 ED SUPER BILL Normal [facility] ED VISIT SUMMARYon ED VISIT SUMMARY Normal [facility] ED VITALS FLOW SHEETon 05-04 ED VITALS FLOW SHEET Normal [facility] LABORATORYOrdered By: Alanna Russo on 05-04-2025 [...] Specimen Type Void (05/04/25 9:38 PM) Normal Auto Urine SS UA Urobilinogen 0.2 [...] 25 mmol/L Normal 22 - 32 mEq/L ADM SS Creatinine [Mass/Vol] 0.92 mg/dL Normal 0.50 - 1.20 mg/dL ADM SS Comment on above: Interpretive Data: T esting performed on [employer] analyzer using enzymatic creatinine methodology. Electrolyte Balance [...] 35.7 G/dL Normal 32.0 - 36.0 G/dL AH Workflow SS MCV (RBC) [Entitic vol] 94.3 [...] range. UAon 05-04-2025 Color (U) Yellow Normal [facility] Comment on above: Performed By: #### U A ####[facility] [place] [address] Glucose (U) [Mass/Vol] Negative Normal Negative [facility] Comment on above: Performed By: #### U A ####[place] [address] Ketones Ql (U) Negative Normal Neg-Trace [facility] Comment on above: Performed By: #### U A ####[place] [address] UA Appear Clear Normal Clear [facility] Comment on above: Performed By: #### U A ####[place] [address] UA Blood Negative Normal Neg-Trace [facility] Comment on above: Performed By: #### U A ####[place] [address] UA Leuk Est Negative Normal Negative [facility] Comment on above: Performed By: #### U A ####[place] [address] UA Nitrite Negative Normal Negative [facility] Comment on above: Performed By: #### U A ####[place] [address] UA pH 8.0 Normal 5.0 - 8.0 [facility] Comment on above: Performed By: #### U A ####[place] [address] UA Protein Negative Normal Negative [facility] Comment on above: Performed By: #### U A ####[place] [address] UA Spec Grav 1.010 Normal 1.006-1.029 [facility] Comment on above: Performed By: #### U A ####[place] [address] UA Specimen Type Void Normal [facility] Comment on above: Performed By: #### U A ####[place] [address] UA Urobilinogen 0.2 E.U./dL Normal 0.2-1.0 [facility] Comment on above: Performed By: #### U A ####[place] [address] Urobilinogen (U) [Mass/Vol] Negative Normal Neg-Trace [facility] Comment on above: Performed By: #### U A ####[address] [address] .Auto Diffon 05-03-2025 Basophil, Absolute 0.0 10 3/mcL Normal 0.0-0.3 [facility] Comment on above: Performed By: #### C BC, LAC, ADIFF, MDW, GFR, ANEU, CMP ####[place] [address] Basophils/100 WBC (Bld) 0.5 % Normal 0.0-2.5 [facility] Comment on above: Performed By: #### C BC, LAC, ADIFF, MDW, GFR, ANEU, CMP ####[place] [address] Eosinophil, Absolute 0.2 10 3/mcL Normal 0.0-0.7 [facility] Comment on above: Performed By: #### C BC, LAC, ADIFF, MDW, GFR, ANEU, CMP ####[place] [address] Eosinophils/100 WBC (Bld) 2.5 % Normal 0.0-6.0 [facility] Comment on above: Performed By: #### C BC, LAC, ADIFF, MDW, GFR, ANEU, CMP ####[place] [address] Lymphocyte, Absolute 2.1 10 3/mcL Normal 0.9-4.3 [facility] Comment on above: Performed By: #### C BC, LAC, ADIFF, MDW, GFR, ANEU, CMP ####[place] [address] Lymphocytes/100 WBC (Bld) 23.8 % Normal 20.0-40.0 [facility] Comment on above: Performed By: #### C BC, LAC, ADIFF, MDW, GFR, ANEU, CMP ####[address] [address] Monocyte, Absolute 0.9 10 3/mcL Normal 0.1-1.4 [facility] Comment on above: Performed By: #### C BC, LAC, ADIFF, MDW, GFR, ANEU, CMP ####[address] [address] Monocytes/100 WBC (Bld) 10.3 % Normal 2.0-13.0 [facility] Comment on above: Performed By: #### C BC, LAC, ADIFF, MDW, GFR, ANEU, CMP ####[address] [address] Neutrophils/100 WBC (Bld) 62.9 % Normal 50.0-75.0 [facility] Comment on above: Performed By: #### C BC, LAC, ADIFF, MDW, GFR, ANEU, CMP ####[address] [address] .GFRon 05-03-2025 Estimated Glomerular Filtration Rate 84 ml/min/1.73sqm Normal [facility] Comment on above: Result Comment: [...] BC, LAC, ADIFF, MDW, GFR, ANEU, CMP ####[address] [address] .MDWon 05-03-2025 Monocyte Distribution Width 19.35 Normal 0.00-20.00 [facility] Comment on above: Result Comment: For ED adult patients suspected of sepsis, MDW<=20.0 does not rule out sepsis or risk of sepsis Performed By: #### C BC, LAC, ADIFF, MDW, GFR, ANEU, CMP ####[place] [address] .NEUABSon 05-03-2025 Neutrophil, Absolute 5.5 10 3/mcL Normal 2.3-8.1 [facility] Comment on above: Performed By: #### C BC, LAC, ADIFF, MDW, GFR, ANEU, CMP ####[place] [address] CBCon 05-03-2025 Erythrocyte distribution width (RBC) [Ratio] 15.1 % Normal 11.5-15.5 [facility] Comment on above: Performed By: #### C BC, LAC, ADIFF, MDW, GFR, ANEU, CMP ####[place] [address] Hematocrit (Bld) [Volume fraction] 36.4 % Normal 34.0-46.0 [facility] Comment on above: Performed By: #### C BC, LAC, ADIFF, MDW, GFR, ANEU, CMP ####[place] [address] Hgb 12.3 G/dL Normal 12.0-16.0 [facility] Comment on above: Performed By: #### C BC, LAC, ADIFF, MDW, GFR, ANEU, CMP ####[place] [address] MCH (RBC) [Entitic mass] 32.5 pg Normal 27.0-33.0 [facility] Comment on above: Performed By: #### C BC, LAC, ADIFF, MDW, GFR, ANEU, CMP ####[place] [address] MCHC 33.9 G/dL Normal 32.0-36.0 [facility] Comment on above: Performed By: #### C BC, LAC, ADIFF, MDW, GFR, ANEU, CMP ####[place] [address] MCV (RBC) [Entitic vol] 96.0 fL Normal 80.0-99.0 [facility] Comment on above: Performed By: #### C BC, KI, CHEN, W, GFR, ANEU, CMP ####[address] [address] Platelet 314 10 3/mcL Normal 150-450 [facility] Comment on above: Performed By: #### C BC, LAC, CHEN, MDW, GFR, ANEU, CMP ####[place] [address] Platelet mean volume (Bld) [Entitic vol] 7.4 fL Normal 6.6-10.5 [facility] Comment on above: Performed By: #### C BC, LAC, CHEN, MDW, GFR, ANEU, CMP ####[place] [address] RBC 3.79 10 6/mcL Low 4.10-5.30 [facility] Comment on above: Performed By: #### C BC, LAC, CHEN, MDW, GFR, ANEU, CMP ####[place] [address] WBC 8.7 10 3/mcL Normal 4.5-10.8 [facility] Comment on above: Performed By: #### C BC, LAC, CHEN, MDW, GFR, ANEU, CMP ####[place] [address] CBC + DIFFon 05-03-2025 Baso # 0.03 x10EE3/UL Normal 0.00 - 0.10 [facility] Comment on above: Performed By: #### 2 36783 ####[facility],[address] [place] [address] Basophils/100 WBC (Bld) 0.4 % Normal 0.0 - 2.0 [facility] Comment on above: Performed By: #### 2 16897 ####[facility],[address] [place], [place] [address] CBC + DIFF Normal [facility] Comment on above: Result Comment: CBC- COMPLETE BLOOD COUNT Performed By: #### 2 68225 ####[address] [address] EO # 0.29 x10EE3/UL Normal 0.00 - 0.50 [facility] Comment on above: Performed By: #### 2 11215 ####[facility],[address] [place] [address] Eosinophils/100 WBC (Bld) 3.4 % Normal 0.0 - 7.0 [facility] Comment on above: Performed By: #### 2 00945 ####[place] [address] Erythrocyte distribution width (RBC) [Ratio] 14.2 % Normal 12.0 - 15.6 [facility] Comment on above: Performed By: #### 2 64763 ####[place] [address] Hematocrit (Bld) [Volume fraction] 32.5 % Low 34.0 - 46.0 [facility] Comment on above: Performed By: #### 2 97547 ####[place] [address] Hemoglobin (Bld) [Mass/Vol] 11.5 g/dL Low 12.0 - 16.0 [facility] Comment on above: Performed By: #### 2 28678 ####[place] [id number] Lymph # 1.68 x10EE3/UL Normal 0.80 - 2.80 [facility] Comment on above: Performed By: #### 2 93012 ####[place] [id number] Lymphocytes/100 WBC (Bld) 19.8 % Low 20.0 - 45.0 [facility] Comment on above: Performed By: #### 2 33230 ####[place] [address] MANUAL DIFF N/A Normal [facility] Comment on above: Performed By: #### 2 10426 ####[facility],[address] [place] [address] MCH (RBC) [Entitic mass] 34 pg High 27 - 33 [facility] Comment on above: Performed By: #### 2 93694 ####[facility],[address] [place] [address] MCHC 35 X10 3 Normal 32 - 36 [facility] Comment on above: Performed By: #### 2 58404 ####[facility],[address] [place] [address] MCV (RBC) [Entitic vol] 97 fL Normal 80 - 99 [facility] Comment on above: Performed By: #### 2 85087 ####[facility],[address] [place] [address] [place] # 0.74 x10EE3/UL Normal 0.20 - 1.00 [facility] Comment on above: Performed By: #### 2 27881 ####[facility],[address] [place] [address] MONOS % 8.7 % Normal 0.0 - 10.0 [facility] Comment on above: Performed By: #### 2 65320 ####[facility],[address] [place] [address] Morphology Efra (Bld) [Interp] N/A Normal [facility] Comment on above: Performed By: #### 2 10399 ####[facility],[address] [place] [address] Neut # 5.74 x10EE3/UL Normal 1.50 - 7.10 [facility] Comment on above: Performed By: #### 2 90084 ####[facility],[address] [place] [address] Neutrophils/100 WBC (Bld) 67.7 % Normal 46.0 - 76.0 [facility] Comment on above: Performed By: #### 2 74581 ####[facility],[address] [place] [address] PLATELET 328 x10EE3/UL Normal 150 - 450 [facility] Comment on above: Performed By: #### 2 23583 ####[facility],[address] [place] [address] Platelet mean volume (Bld) [Entitic vol] 6.8 fL Normal 6.6 - 10.5 [facility] Comment on above: Result Comment: AUTO MATED DIFFERENTIAL Performed By: #### 2 90405 ####[facility],[address] [place] [address] RBC 3.35 x 10EE6/UL Low 4.10 - 5.30 [facility] Comment on above: Performed By: #### 2 76796 ####[facility],[address] [place] [address] WBC 8.5 x 10EE3/UL Normal 4.5 - 10.8 [facility] Comment on above: Performed By: #### 2 39481 ####[facility],[address] [place] [address] Baso # 0.04 x10EE3/UL Normal 0.00 - 0.10 [facility] Comment on above: Performed By: #### 2 84497 ####[facility],[address] [place] [address] Basophils/100 WBC (Bld) 0.4 % Normal 0.0 - 2.0 [facility] Comment on above: Performed By: #### 2 50722 ####[place] [address] CBC + DIFF Normal [facility] Comment on above: Result Comment: CBC- COMPLETE BLOOD COUNT Performed By: #### 2 00041 ####[facility],[address] [place] [address] EO # 0.23 x10EE3/UL Normal 0.00 - 0.50 [facility] Comment on above: Performed By: #### 2 27574 ####[facility],[address] [place] [address] Eosinophils/100 WBC (Bld) 2.4 % Normal 0.0 - 7.0 [facility] Comment on above: Performed By: #### 2 00259 ####[facility],[address] [place] [address] Erythrocyte distribution width (RBC) [Ratio] 13.8 % Normal 12.0 - 15.6 [facility] Comment on above: Performed By: #### 2 70478 ####[facility],[address] [place] [address] Hematocrit (Bld) [Volume fraction] 37.3 % Normal 34.0 - 46.0 [facility] Comment on above: Performed By: #### 2 49468 ####[facility],[address] [place] [address] Hemoglobin (Bld) [Mass/Vol] 13.0 g/dL Normal 12.0 - 16.0 [facility] Comment on above: Performed By: #### 2 16266 ####[facility],[address] [place] [address] Lymph # 2.29 x10EE3/UL Normal 0.80 - 2.80 [facility] Comment on above: Performed By: #### 2 25210 ####[facility],[address] [place] [address] Lymphocytes/100 WBC (Bld) 23.2 % Normal 20.0 - 45.0 [facility] Comment on above: Performed By: #### 2 10899 ####[facility],[address] [place], [place] [address] MANUAL DIFF N/A Normal [facility] Comment on above: Performed By: #### 2 25025 ####[facility],[address] [place] [address] MCH (RBC) [Entitic mass] 34 pg High 27 - 33 [facility] Comment on above: Performed By: #### 2 92108 ####[facility],[address] [place] [address] MCHC 35 X10 3 Normal 32 - 36 [facility] Comment on above: Performed By: #### 2 86082 ####[facility],[address] [place] [address] MCV (RBC) [Entitic vol] 96 fL Normal 80 - 99 [facility] Comment on above: Performed By: #### 2 87870 ####[facility],[address] [place] [address] [place] # 0.89 x10EE3/UL Normal 0.20 - 1.00 [facility] Comment on above: Performed By: #### 2 17676 ####[facility],[address] [place] [address] MONOS % 9.0 % Normal 0.0 - 10.0 [facility] Comment on above: Performed By: #### 2 09532 ####[facility],[address] [place], [place] [address] Morphology Efra (Bld) [Interp] N/A Normal [facility] Comment on above: Performed By: #### 2 65444 ####[facility],[address] [place] [address] Neut # 6.41 x10EE3/UL Normal 1.50 - 7.10 [facility] Comment on above: Performed By: #### 2 66028 ####[facility],[address] [place] [address] Neutrophils/100 WBC (Bld) 65.1 % Normal 46.0 - 76.0 [facility] Comment on above: Performed By: #### 2 72687 ####[facility],[address] [place] [address] PLATELET 371 x10EE3/UL Normal 150 - 450 [facility] Comment on above: Performed By: #### 2 09152 ####[facility],[address] [place] [address] Platelet mean volume (Bld) [Entitic vol] 6.7 fL Normal 6.6 - 10.5 [facility] Comment on above: Result Comment: AUTO MATED DIFFERENTIAL Performed By: #### 2 24412 ####[facility],[address] [place] [address] RBC 3.87 x 10EE6/UL Low 4.10 - 5.30 [facility] Comment on above: Performed By: #### 2 32230 ####[facility],[address] [place] [address] WBC 9.9 x 10EE3/UL Normal 4.5 - 10.8 [facility] Comment on above: Performed By: #### 2 69067 ####[facility],[address] [place], [place] [address] CMPon 05-03-2025 Albumin Level 3.5 G/dL Normal 3.2-4.8 [facility] Comment on above: Performed By: #### C BC, LAC, CHEN, MDW, GFR, ANEU, CMP ####[address] [address] Albumin/Globulin [Mass ratio] 1.5 {ratio} Normal 0.9-1.6 [facility] Comment on above: Performed By: #### C BC, LAC, CHEN, MDW, GFR, ANEU, CMP ####[address] [address] ALP [Catalytic activity/Vol] 62 U/L Normal 38-126 [facility] Comment on above: Performed By: #### C BC, LAC, CHEN, MDW, GFR, ANEU, CMP ####[address] [address] ALT [Catalytic activity/Vol] 10 U/L Normal 10-49 [facility] Comment on above: Performed By: #### C BC, LAC, ADIFF, MDW, GFR, ANEU, CMP ####[address] [address] AST [Catalytic activity/Vol] 22 U/L Normal 8-34 [facility] Comment on above: Performed By: #### C BC, LAC, ADIFF, MDW, GFR, ANEU, CMP ####[address] [address] Bili Total 0.20 mg/dL Normal 0.20-1.20 [facility] Comment on above: Result Comment: Use of this assay is not recommended for patients undergoing treatment with eltrombopag due to the potential for falsely elevated results. Performed By: #### C BC, LAC, ADIFF, MDW, GFR, ANEU, CMP ####[address] [address] BUN/Creatinine Ratio 8.8 ratio Low 10.0-22.0 [facility] Comment on above: Performed By: #### C BC, LAC, ADIFF, MDW, GFR, ANEU, CMP ####[address] [address] Calcium [Mass/Vol] 8.3 mg/dL Low 8.7-10.4 [facility] Comment on above: Performed By: #### C BC, LAC, ADIFF, MDW, GFR, ANEU, CMP ####[address] [address] Chloride [Moles/Vol] 111 mmol/L High 98-110 [facility] Comment on above: Performed By: #### C BC, LAC, ADIFF, MDW, GFR, ANEU, CMP ####[address] [address] CO2 [Moles/Vol] 24 mmol/L Normal 22-32 [facility] Comment on above: Performed By: #### C BC, LAC, ADIFF, MDW, GFR, ANEU, CMP ####[address] [address] Creatinine [Mass/Vol] 0.91 mg/dL Normal 0.50-1.20 [facility] Comment on above: Result Comment: Test ing performed on [employer] analyzer using enzymatic creatinine methodology. Performed By: #### C BC, LAC, ADIFF, MDW, GFR, ANEU, CMP ####[address] [address] Electrolyte Balance 4.0 mEq/L Normal 4.0-15.0 [facility] Comment on above: Performed By: #### C BC, LAC, ADIFF, MDW, GFR, ANEU, CMP ####[place] [id number] Globulin 2.4 G/dL Low 2.5-4.2 [facility] Comment on above: Performed By: #### C BC, LAC, ADIFF, MDW, GFR, ANEU, CMP ####[place] [id number] Glucose [Mass/Vol] 85 mg/dL Normal 70-110 [facility] Comment on above: Performed By: #### C BC, LAC, ADIFF, MDW, GFR, ANEU, CMP ####[place] [id number] Potassium [Moles/Vol] 5.0 mmol/L Normal 3.5-5.0 [facility] Comment on above: Result Comment: Spec imen slightly hemolyzed. Performed By: #### C BC, LAC, ADIFF, MDW, GFR, ANEU, CMP ####[place] [id number] Sodium [Moles/Vol] 139 mmol/L Normal 136-145 [facility] Comment on above: Performed By: #### C BC, LAC, ADIFF, MDW, GFR, ANEU, CMP ####[place] [id number] Total Protein 5.9 G/dL Normal 5.7-8.2 [facility] Comment on above: Performed By: #### C BC, LAC, ADIFF, MDW, GFR, ANEU, CMP ####[place] [id number] Urea nitrogen [Mass/Vol] 8.0 mg/dL Normal 8.0-22.0 [facility] Comment on above: Performed By: #### C BC, LAC, CHEN, W, GFR, ANEU, CMP ####[facility] [place] [address] CMP with eGFRon 05-03-2025 AGE 34 years Normal [facility] Comment on above: Performed By: #### 2 33797 ####[facility],[address] [place] [address] Albumin [Mass/Vol] 2.9 g/dL Low 3.4 - 5.0 [facility] Comment on above: Performed By: #### 2 05969 ####[facility],[address] [place] [address] Albumin/Globulin [Mass ratio] 1.0 {ratio} Normal 0.9 - 1.6 [facility] Comment on above: Performed By: #### 2 13343 ####[facility],[address] [place] [address] ALK PHOS 64 U/L Normal 46 - 116 [facility] Comment on above: Performed By: #### 2 44324 ####[facility],[address] [place] [address] ALT [Catalytic activity/Vol] 17 U/L Normal 16 - 63 [facility] Comment on above: Performed By: #### 2 24729 ####[facility],[address] [place] [address] Anion gap [Moles/Vol] 11 mmol/L Normal 10 - 20 [facility] Comment on above: Performed By: #### 2 08801 ####[facility],[address] [place] [address] AST [Catalytic activity/Vol] 15 U/L Normal 13 - 39 [facility] Comment on above: Performed By: #### 2 43586 ####[facility],[address] [place] [address] B/C RATIO 9 ratio Normal 0 - 30 [facility] Comment on above: Performed By: #### 2 23129 ####[facility],[address] [place] [address] Bilirubin [Mass/Vol] 0.3 mg/dL Normal 0.2 - 1.0 [facility] Comment on above: Performed By: #### 2 63280 ####[facility],[address] [place] [address] Calcium [Mass/Vol] 8.3 mg/dL Low 8.5 - 10.1 [facility] Comment on above: Performed By: #### 2 24740 ####[facility],[address] [place] [address] Chloride [Moles/Vol] 107 mmol/L Normal 98 - 107 [facility] Comment on above: Performed By: #### 2 31796 ####[facility],[address] [place] [address] CMP with eGFR Normal [facility] Comment on above: Result Comment: COMP REHENSIVE METABOLIC PANEL Performed By: #### 2 26838 ####[facility],[address] [place] [address] CO2 [Moles/Vol] 25.1 mmol/L Normal 21.0 - 32.0 [facility] Comment on above: Performed By: #### 2 87786 ####[facility],[address] [place] [address] Creatinine [Mass/Vol] 0.81 mg/dL Normal 0.55 - 1.02 [facility] Comment on above: Performed By: #### 2 36486 ####[facility],[address] [place] [address] GFR/1.73 sq M.predicted among non-blacks MDRD (S/P/Bld) [Vol rate/Area] mL/min/{1.73_m2} Normal 60 - 999 [facility] Comment on above: Performed By: #### 2 24872 ####[facility],[address] [place] [address] Result Comment: ACCO RDING TO THE NATIONAL KIDNEY DISEASE EDUCATION PROGRAM(NKDE), A NORMAL eGFRIS A VALUE GREATER THAN OR EQUAL TO 60 ML/MIN/1.73 SQ METERS.CHRONIC KIDNEY DISEASE: <60mL/MIN/1.73 SQ METERSKIDNEY FAILURE: <15mL/MIN/1.73 SQ METERSTHIS TEST SHOULD ONLY BE USED FOR PATIENTS 18 YEARS OF AGE AND OLDER. Globulin (S) [Mass/Vol] 2.8 g/dL Normal 1.5 - 3.8 [facility] Comment on above: Performed By: #### 2 43252 ####[facility],[address] [place] [address] Glucose [Mass/Vol] 82 mg/dL Normal 74 - 106 [facility] Comment on above: Performed By: #### 2 11841 ####[facility],[address] [place] [address] Potassium [Moles/Vol] 3.9 mmol/L Normal 3.5 - 5.1 [facility] Comment on above: Performed By: #### 2 20125 ####[facility],[address] [place] [address] Protein [Mass/Vol] 5.7 g/dL Low 6.4 - 8.2 [facility] Comment on above: Performed By: #### 2 84132 ####[facility],[address] [place] [address] Sodium [Moles/Vol] 139 mmol/L Normal 136 - 145 [facility] Comment on above: Performed By: #### 2 84648 ####[facility],[address] [place] [address] Urea nitrogen [Mass/Vol] 7 mg/dL Normal 7 - 18 [facility] Comment on above: Performed By: #### 2 23032 ####[facility],[address] [place] [address] AGE 34 years Normal [facility] Comment on above: Performed By: #### 2 10493 ####[facility],[address] [place] [address] Albumin [Mass/Vol] 3.4 g/dL Normal 3.4 - 5.0 [facility] Comment on above: Performed By: #### 2 85624 ####[facility],[address] [place] [address] Albumin/Globulin [Mass ratio] 1.0 {ratio} Normal 0.9 - 1.6 [facility] Comment on above: Performed By: #### 2 03835 ####[facility],[address] [place] [address] ALK PHOS 74 U/L Normal 46 - 116 [facility] Comment on above: Performed By: #### 2 30499 ####[facility],[address] [place] [address] ALT [Catalytic activity/Vol] 20 U/L Normal 16 - 63 [facility] Comment on above: Performed By: #### 2 77109 ####[facility],[address] [place] [address] Anion gap [Moles/Vol] 15 mmol/L Normal 10 - 20 [facility] Comment on above: Performed By: #### 2 19664 ####[facility],[address] [place] [address] AST [Catalytic activity/Vol] 11 U/L Low 13 - 39 [facility] Comment on above: Performed By: #### 2 66438 ####[facility],[address] [place] [address] B/C RATIO 7 ratio Normal 0 - 30 [facility] Comment on above: Performed By: #### 2 57937 ####[facility],[address] [place] [address] Bilirubin [Mass/Vol] 0.5 mg/dL Normal 0.2 - 1.0 [facility] Comment on above: Performed By: #### 2 31653 ####[facility],[address] [place] [address] Calcium [Mass/Vol] 8.8 mg/dL Normal 8.5 - 10.1 [facility] Comment on above: Performed By: #### 2 69625 ####[facility],[address] [place] [address] Chloride [Moles/Vol] 103 mmol/L Normal 98 - 107 [facility] Comment on above: Performed By: #### 2 76031 ####[facility],[address] [place] [address] CMP with eGFR Normal [facility] Comment on above: Result Comment: COMP REHENSIVE METABOLIC PANEL Performed By: #### 2 60750 ####[facility],[address] [place] [address] CO2 [Moles/Vol] 25.4 mmol/L Normal 21.0 - 32.0 [facility] Comment on above: Performed By: #### 2 73862 ####[facility],[address] [place], [place] [address] 52728 Creatinine [Mass/Vol] 0.99 mg/dL Normal 0.55 - 1.02 [facility] Comment on above: Performed By: #### 2 44640 ####[facility],[address] [place] [address] 49026 GFR/1.73 sq M.predicted among non-blacks MDRD (S/P/Bld) [Vol rate/Area] mL/min/{1.73_m2} Normal 60 - 999 [facility] Comment on above: Performed By: #### 2 35023 ####[facility],[address] [place] [address] 44680 Result Comment: ACCO RDING TO THE NATIONAL KIDNEY DISEASE EDUCATION PROGRAM(NKDE), A NORMAL eGFRIS A VALUE GREATER THAN OR EQUAL TO 60 ML/MIN/1.73 SQ METERS.CHRONIC KIDNEY DISEASE: <60mL/MIN/1.73 SQ METERSKIDNEY FAILURE: <15mL/MIN/1.73 SQ METERSTHIS TEST SHOULD ONLY BE USED FOR PATIENTS 18 YEARS OF AGE AND OLDER. Globulin (S) [Mass/Vol] 3.3 g/dL Normal 1.5 - 3.8 [facility] Comment on above: Performed By: #### 2 81156 ####[facility],[address] [place] [address] 48419 Glucose [Mass/Vol] 109 mg/dL High 74 - 106 [facility] Comment on above: Performed By: #### 2 19406 ####[address] [address] Potassium [Moles/Vol] 3.3 mmol/L Low 3.5 - 5.1 [facility] Comment on above: Performed By: #### 2 74742 ####[address] [address] Protein [Mass/Vol] 6.7 g/dL Normal 6.4 - 8.2 [facility] Comment on above: Performed By: #### 2 46581 ####[facility],[address] [place] [address] 38423 Sodium [Moles/Vol] 140 mmol/L Normal 136 - 145 [facility] Comment on above: Performed By: #### 2 91433 ####[facility],[address] [place] [address] 89753 Urea nitrogen [Mass/Vol] 7 mg/dL Normal 7 - 18 [facility] Comment on above: Performed By: #### 2 26495 ####[address] [address] [address] ABDOMEN/PELVIS Won 2024 CT ABDOMEN/PELVIS W Normal [facility] CT ABDOMEN/PELVIS W/O CONTRA STon 05-03-2025 CT ABDOMEN/PELVIS W/O CONTRAST Normal [facility] ED MED ADMINISTRATION DETAIL on 05-03-2025 ED MED ADMINISTRATION DETAIL Normal [facility] ED NURSES CLINICAL NOTEon ED NURSES CLINICAL NOTE Normal J l [facility] ED ORDER SHEET (CPOE ONLY)on 05-03-2025 ED ORDER SHEET (CPOE ONLY) Normal [facility] ED PHYSICIAN CLINICAL REPORT on 05-03-2025 ED PHYSICIAN CLINICAL REPORT Normal [facility] ED SUPER BILLon 05-03-2025 ED SUPER BILL Normal [facility] ED VISIT SUMMARYon ED VISIT SUMMARY Normal [facility] ED VITALS FLOW SHEETon 05-03 ED VITALS FLOW SHEET Normal [facility] LABORATORYOrdered By: Madyson Magallanes on 05-03-2025 [...] above: Interpretive Data: T esting performed on [employer] analyzer using enzymatic creatinine methodology. Electrolyte Balance 4.0 mEq/L Normal 4.0 - 15 .0 mEq/L ADM SS Eosinophils (Bld) [#/Vol] 0.2 103/mcL Normal 0.0 - 0.7 10^3/mcL AH Workflow SS Eosinophils/100 WBC (Bld) 2.5 % Normal 0.0 - 6.0 % AH [...] 12.3 G/dL Normal 12.0 - 16.0 G/dL AH Workflow SS Lymphocytes (Bld) [#/Vol] 2.1 103/mcL Normal 0.9 - 4.3 10^3/mcL AH Workflow SS Lymphocytes/100 WBC (Bld) 23.8 % Normal 20.0 - 40.0 % AH [...] 5.0 mmol/L Normal 3.5 - 5.0 mEq/L ADM [...] Type Clean Catch (05/03/25 6:12 AM) Normal AH Auto Urine SS UA Urobilinogen 0.2 E.U./dL Normal 0.2-1.0 AH Auto Urine SS LACon 05-03-2025 Lactic Acid Lvl 0.7 mmol/L Normal 0.5-2.2 [facility] Comment on above: Performed By: #### C BC, LAC, CHEN, MDW, GFR, ANEU, CMP ####[facility] [place] [address] LACTATEon 05-03-2025 Lactate [Moles/Vol] 0.6 mmol/L Normal 0.4 - 2.0 [facility] Comment on above: Performed By: #### 2 11141 ####[facility],[address] [place] [address] LIPASEon 05-03-2025 Lipase [Catalytic activity/Vol] 104.0 U/L High 15.0 - 78.0 [facility] Comment on above: Result Comment: *PLE ASE NOTE THAT RANGES FOR LIPASE HAVE CHANGED OF 10/31/23 DUE TO AN ASSAYUPDATE BY THE HOTEL DESK CLERK.THE NEW ASSAY RANGE IS 6-250 U/L, WITH A REFERENCERANGE OF 16-77 U/L. Performed By: #### 2 06767 ####[facility],[address] [place], [place] [id number] No Panel Informationon 05-03 Culture Urine Specimen received in lab. [facility] Work Phone: Microscopic examination of blood, culture Culture has been received in lab and is no growth to date. Routine cultures are held for 5 days. [facility] Work Phone: Microscopic examination of blood, culture Culture has been received in lab and is no growth to date. Routine cultures are held for 5 days. [facility] Work Phone: URINEon 05-03-2025 Beta HCG ( test) Ql (U) Negative Normal NEGATIVE [facility] Comment on above: Performed By: #### 2 81095 ####[place] [address] EXTERNAL QC DONE? YES Normal [facility] Comment on above: Result Comment: Very dilute urine specimens, as indicated by a low specific gravity, may notcontain leasing representative levels of hCG. If is still suspected, a firstmorning urine specimen should be collected 48 hours later and tested. Performed By: #### 2 43373 ####[facility],[address] [place], [place] [address] INTERNAL QC PASS Normal [facility] Comment on above: Performed By: #### 2 15864 ####[address] [address] UAon 05-03-2025 Color (U) Yellow Normal [facility] Comment on above: Order Comment: from nephrostomy tube Performed By: #### U A, UAMIC ####[address] [address] Glucose (U) [Mass/Vol] Negative Normal Negative [facility] Comment on above: Order Comment: from nephrostomy tube Performed By: #### U A, UAMIC ####[place] [address] Ketones Ql (U) Negative Normal Neg-Trace [facility] Comment on above: Order Comment: from nephrostomy tube Performed By: #### U A, UAMIC ####[place] [address] UA Appear Cloudy Abnormal Clear [facility] Comment on above: Order Comment: from nephrostomy tube Performed By: #### U A, UAMIC ####[place] [address] UA Blood Small Abnormal Neg-Trace [facility] Comment on above: Order Comment: from nephrostomy tube Performed By: #### U A, UAMIC ####[place] [address] UA Leuk Est Moderate Abnormal Negative [facility] Comment on above: Order Comment: from nephrostomy tube Performed By: #### U A, UAMIC ####[place] [address] UA Nitrite Negative Normal Negative [facility] Comment on above: Order Comment: from nephrostomy tube Performed By: #### U A, UAMIC ####[place] [address] UA pH 8.5 Abnormal 5.0 - 8.0 [facility] Comment on above: Order Comment: from nephrostomy tube Performed By: #### U A, UAMIC ####[place] [address] UA Protein 100 mg/dL Abnormal Negative [facility] Comment on above: Order Comment: from nephrostomy tube Performed By: #### U A, UAMIC ####[place] [address] UA Spec Grav >=1.030 Abnormal 1.006-1.029 [facility] Comment on above: Order Comment: from nephrostomy tube Performed By: #### U A, UAMIC ####[place] [address] UA Specimen Type Not Given [facility] Comment on above: Order Comment: from nephrostomy tube Performed By: #### U A, UAMIC ####[place] [address] UA Urobilinogen 0.2 E.U./dL Normal 0.2-1.0 [facility] Comment on above: Order Comment: from nephrostomy tube Performed By: #### U A, UAMIC ####[place] [address] Urobilinogen (U) [Mass/Vol] Negative Normal Neg-Trace [facility] Comment on above: Order Comment: from nephrostomy tube Performed By: #### U A UAMIC ####[place] [address] Color (U) Yellow Normal [facility] Comment on above: Performed By: #### U A ####[place] [address] Glucose (U) [Mass/Vol] Negative Normal Negative [facility] Comment on above: Performed By: #### U A ####[place] [address] Ketones Ql (U) Negative Normal Neg-Trace [facility] Comment on above: Performed By: #### U A ####[place] [address] UA Appear Clear Normal Clear [facility] Comment on above: Performed By: #### U A ####[place] [address] UA Blood Negative Normal Neg-Trace [facility] Comment on above: Performed By: #### U A ####[place] [address] UA Leuk Est Negative Normal Negative [facility] Comment on above: Performed By: #### U A ####[place] [address] UA Nitrite Negative Normal Negative [facility] Comment on above: Performed By: #### U A ####[place] [address] UA pH 6.5 Normal 5.0 - 8.0 [facility] Comment on above: Performed By: #### U A ####[place] [address] UA Protein Trace Normal Negative [facility] Comment on above: Performed By: #### U A ####[place] [address] UA Spec Grav >=1.030 Abnormal 1.006-1.029 [facility] Comment on above: Performed By: #### U A ####[place] [address] UA Specimen Type Clean Catch Normal [facility] Comment on above: Performed By: #### U A ####[place] [address] UA Urobilinogen 0.2 E.U./dL Normal 0.2-1.0 [facility] Comment on above: Performed By: #### U A ####[place] [address] Urobilinogen (U) [Mass/Vol] Negative Normal Neg-Trace [facility] Comment on above: Performed By: #### U A ####[place] [address] UAMICon 05-03-2025 UA Amorphus 2+ /hpf Normal [facility] Comment on above: Performed By: #### U A, UAMIC ####[place] [address] UA Bacteria 3+ /hpf Abnormal Negative [facility] Comment on above: Performed By: #### U A, UAMIC ####[place] [address] UA RBC 3-5 Abnormal 0-2 [facility] Comment on above: Performed By: #### U A, UAMIC ####[place] [address] UA Squam Epithelial 0-2 Normal 0-20 [facility] Comment on above: Performed By: #### U A, UAMIC ####[facility] [place] [address] UA WBC 25-50 Abnormal 0-5 [facility] Comment on above: Performed By: #### U A, UAMIC ####[facility] [place] [address] URINALYSISon 05-03-2025 Amorphous 2+ Normal [facility] Comment on above: Performed By: #### 2 26446 ####[facility],[address] [place] [address] Bacteria 2+ Normal [facility] Comment on above: Performed By: #### 2 89126 ####[facility],[address] [place] [address]89 Bilirubin Ql (U) Negative Normal NORMAL: NEGATIVE [facility] Comment on above: Performed By: #### 2 22849 ####[facility],[address] [place], [place] [id number] Casts NONE Normal [facility] Comment on above: Performed By: #### 2 40216 ####[facility],[address] [place] [address]676 Clarity (U) SL. CLOUDY Abnormal NORMAL: CLEAR [facility] Comment on above: Performed By: #### 2 72578 ####[facility],[address] [place] [address]76 Color (U) YELLOW Normal NORMAL: YELLOW [facility] Comment on above: Performed By: #### 2 59832 ####[facility],[address] [place] [address]77[address] Crystals LM Nom (Urine sed) NONE Normal [facility] Comment on above: Performed By: #### 2 14674 ####[facility],[address] [place] [address] 67664 Epi Cells NONE Normal [facility] Comment on above: Performed By: #### 2 76485 ####[facility],[address] [place] [address]19 Glucose Ql (U) NORM Normal NORMAL: NORMAL [facility] Comment on above: Performed By: #### 2 24177 ####[facility],[address] [place] [address]841 Hemoglobin Ql (U) 150 Abnormal NORMAL: NEGATIVE [facility] Comment on above: Performed By: #### 2 88874 ####[facility],[address] [place] [address]800 Ketone Negative Normal NORMAL: NEGATIVE [facility] Comment on above: Performed By: #### 2 76859 ####[facility],[address] [place] [address] Leukocytes 500 Abnormal NORMAL: NEGATIVE [facility] Comment on above: Performed By: #### 2 69082 ####[facility],[address] [place], [place] [id number] Mucous NONE Normal [facility] Comment on above: Performed By: #### 2 40991 ####[facility],[address] [place] [address] Nitrite Ql (U) Negative Normal NORMAL: NEGATIVE [facility] Comment on above: Performed By: #### 2 53533 ####[facility],[address] [place] [address] 08031 pH (U) 7.0 [pH] Normal NORMAL: 5.0-8.0 [facility] Comment on above: Performed By: #### 2 61879 ####[facility],[address] [place] [address] Protein Ql (U) 30 Abnormal NORMAL: NEGATIVE [facility] Comment on above: Performed By: #### 2 87449 ####[facility],[address] [place], [place] [id number] Rbc 0-5 Normal 0-3/hpf [facility] Comment on above: Performed By: #### 2 32648 ####[facility],[address] [place], [place] [address] Sp [place] 1.005 Low NORMAL: 1.010-1.030 [facility] Comment on above: Performed By: #### 2 38572 ####[facility],[address] [place] [address] Specimen Type R Normal [facility] Comment on above: Result Comment: NEPH ROSTOMY Performed By: #### 2 38829 ####[facility],[address] [place] [address] Urinalysis dipstick W Reflex Microscopic panel (U) SEE BELOW Normal [facility] Comment on above: Result Comment: MICR OSCOPIC Performed By: #### 2 39489 ####[facility],[address] [place] [address] Urobilinog NORMAL Normal NORMAL: NORMAL [facility] Comment on above: Performed By: #### 2 39168 ####[facility],[address] [place] [address] Wbc 6-10 Normal 0-5/hpf [facility] Comment on above: Performed By: #### 2 80422 ####[facility],[address] [place] [address] Yeast NONE Normal [facility] Comment on above: Performed By: #### 2 64441 ####[facility],[address] [place] [address] Bilirubin Ql (U) Negative Normal NORMAL: NEGATIVE [facility] Comment on above: Performed By: #### 2 16271 ####[facility],[address] [place] [address] Clarity (U) CLEAR Normal NORMAL: CLEAR [facility] Comment on above: Performed By: #### 2 14074 ####[facility],[address] [place] [address] Color (U) YELLOW Normal NORMAL: YELLOW [facility] Comment on above: Performed By: #### 2 12445 ####[facility],[address] [place] [address] Glucose Ql (U) NORM Normal NORMAL: NORMAL [facility] Comment on above: Performed By: #### 2 02052 ####[facility],[address] [place] [address] Hemoglobin Ql (U) Negative Normal NORMAL: NEGATIVE [facility] Comment on above: Performed By: #### 2 61870 ####[facility],[address] [place] [address] Ketone Negative Normal NORMAL: NEGATIVE [facility] Comment on above: Performed By: #### 2 09637 ####[facility],[address] [place] [address] Leukocytes Negative Normal NORMAL: NEGATIVE [facility] Comment on above: Performed By: #### 2 12387 ####[facility],[address] [place] [address] Nitrite Ql (U) Negative Normal NORMAL: NEGATIVE [facility] Comment on above: Performed By: #### 2 75858 ####[facility],[address] [place] [address] pH (U) 6.0 [pH] Normal NORMAL: 5.0-8.0 [facility] Comment on above: Performed By: #### 2 49395 ####[facility],[address] [place] [address]64 Protein Ql (U) Negative Normal NORMAL: NEGATIVE [facility] Comment on above: Performed By: #### 2 95881 ####[facility],[address] [place] [address] Sp [place] 1.010 Normal NORMAL: 1.010-1.030 [facility] Comment on above: Performed By: #### 2 89285 ####[facility],[address] [place] [address] Specimen Type R Normal [facility] Comment on above: Result Comment: BLAD JULITO Performed By: #### 2 46281 ####[facility],[address] [place] [address] Urinalysis dipstick W Reflex Microscopic panel (U) NOT INDICATED Normal [facility] Comment on above: Performed By: #### 2 47411 ####[facility],[address] [place] [address] Urobilinog NORMAL Normal NORMAL: NORMAL [facility] Comment on above: Performed By: #### 2 09722 ####[facility],[address] [place] [address] ED MED ADMINISTRATION DETAIL on 04-30-2025 ED MED ADMINISTRATION DETAIL Normal [facility] ED NURSES CLINICAL NOTEon ED NURSES CLINICAL NOTE Normal [facility] ED ORDER SHEET (CPOE ONLY)on 04-30-2025 ED ORDER SHEET (CPOE ONLY) Normal [facility] ED SUPER BILLon 04-30-2025 ED SUPER BILL Normal [facility] ED VISIT SUMMARYon ED VISIT SUMMARY Normal [facility] ED VITALS FLOW SHEETon 04-30 ED VITALS FLOW SHEET Normal [facility] Absolute lymphocyte countOrd ered By: Jatin Garcia on 04-09-2025 Lymphocytes Auto (Unsp spec) [#/Vol] 2.78 10*3/uL 0.83-4.51 [facility] Absolute neutrophil countOrd ered By: Jatin Garcia on 04-09-2025 Neutrophils (Bld) [#/Vol] 4.7 10*3/uL 2.0-7.7 [facility] Anion gap in Serum or Plasma Ordered By: Jatin Garcia on 04-09-2025 Anion gap [Moles/Vol] 14 mmol/L 5-15 [facility] Automated lymphocyte count a s percentage of total leukocytesOrdered By: Jatin Garcia on 04-09-2025 Lymphocytes/100 WBC Auto (Unsp spec) 32.0 % 19-41 [facility] BUN/creatinine ratioOrdered By: Jatin Garcia on 04-09-2025 Urea nitrogen/Creatinine [Mass ratio] 9.0 mg/mg Low 10-20 [facility] Basic Metabolic Profile (BMP )on 04-09-2025 BUN/CRE 9.0 RATIO Low 10-20 [facility] Comment on above: Performed By: #### L 500.2500, L100.0100 #### [facility] [address] [place], [address] Calcium [Mass/Vol] 9.1 mg/dL Normal 7.6-11.0 [facility] Comment on above: Performed By: #### L 500.2500, L100.0100 #### [facility] [address] [place], [address] Chloride [Moles/Vol] 106 mmol/L Normal 98-108 [facility] Comment on above: Performed By: #### L 500.2500, L100.0100 #### [facility] [address] [place], [address] CO2 [Moles/Vol] 19.8 mmol/L Low 21.0-32.0 [facility] Comment on above: Performed By: #### L 500.2500, L100.0100 #### [facility] [address] [place], [address] Creatinine [Mass/Vol] 0.96 mg/dL Normal 0.70-1.20 [facility] Comment on above: Performed By: #### L 500.2500, L100.0100 #### [facility] [address] [place], [address] ECRCL 72.90 ml/min Normal 50-250 [facility] Comment on above: Performed By: #### L 500.2500, L100.0100 #### [facility] [address] [place], [address] GAP 14 Normal 5-15 [facility] Comment on above: Performed By: #### L 500.2500, L100.0100 #### [facility] [address] [place], [address] GFR/1.73 sq M.predicted among non-blacks MDRD (S/P/Bld) [Vol rate/Area] 79 mL/min/{1.73_m2} Normal >60 [facility] Comment on above: Result Comment: mL/m in/1.73m2 CKD-EPI Creatinine Equation (2020) Performed By: #### L 500.2500, L100.0100 #### [facility] [address] [place], [address] Glucose [Mass/Vol] 120 mg/dL High 70-99 [facility] Comment on above: Performed By: #### L 500.2500, L100.0100 #### [facility] [address] [place], [address] Potassium [Moles/Vol] 3.4 mmol/L Normal 3.3-5.1 [facility] Comment on above: Performed By: #### L 500.2500, L100.0100 #### [facility] [address] [place], [address] Sodium [Moles/Vol] 140 mmol/L Normal 133-145 [facility] Comment on above: Performed By: #### L 500.2500, L100.0100 #### [facility] [address] [place], [address] Urea nitrogen [Mass/Vol] 9 mg/dL Normal 4-19 [facility] Comment on above: Performed By: #### L 500.2500, L100.0100 #### [facility] [address] [place], [address] Basophil percentageOrdered B y: Jatin Garcia on 04-09-2025 Basophils/100 WBC (Bld) 1.0 % 0-1 [facility] Bilirubin Test strip Ql (U)O rdered By: Jatin Garcia on 06-07-2025 Bilirubin Ql (U) Negative Negative [facility] CBC W/Diff, Automatedon 06-0 7-2024 Absolute Lymph 2.78 X10 3/uL Normal 0.83-4.51 [facility] Comment on above: Performed By: #### L 500.2500, L100.0100 #### [facility] [address] [place], [address] Absolute Neut 4.7 X10 3/uL Normal 2.0-7.7 [facility] Comment on above: Performed By: #### L 500.2500, L100.0100 #### [facility] [address] [place], [address] Basophils/100 WBC (Bld) 1.0 % Normal 0-1 [facility] Comment on above: Performed By: #### L 500.2500, L100.0100 #### [facility] [address] [place], [address] Eosinophils/100 WBC (Bld) 3.2 % Normal 0-5 [facility] Comment on above: Performed By: #### L 500.2500, L100.0100 #### [facility] [address] [place], [address] Erythrocyte distribution width (RBC) [Ratio] 14.6 % Normal 11.6-14.6 [facility] Comment on above: Performed By: #### L 500.2500, L100.0100 #### [facility] [address] [place], [address] Hematocrit (Bld) [Volume fraction] 36.4 % Low 37-47 [facility] Comment on above: Performed By: #### L 500.2500, L100.0100 #### [facility] [address] [place], [address] Hemoglobin (Bld) [Mass/Vol] 12.3 g/dL Normal 12.0-15.0 [facility] Comment on above: Performed By: #### L 500.2500, L100.0100 #### [facility] [address] [place], [address] IG% 0.300 Normal 0.0-0.9 [facility] Comment on above: Result Comment: IG% - Immature Granulocytes (promyelocytes, myelocytes and metamyelocytes) > 1% indicates that a LEFT SHIFT is Present. Performed By: #### L 500.2500, L100.0100 #### [facility] [address] [place], [address] Lymphocytes/100 WBC (Bld) 32.0 % Normal 19-41 [facility] Comment on above: Performed By: #### L 500.2500, L100.0100 #### [facility] [address] [place], [address] MCH (RBC) [Entitic mass] 32.3 pg High 27.0-32.0 [facility] Comment on above: Performed By: #### L 500.2500, L100.0100 #### [facility] [address] [place], [address] MCHC (RBC) [Mass/Vol] 33.8 g/dL Normal 32-36 [facility] Comment on above: Performed By: #### L 500.2500, L100.0100 #### [facility] [address] [place], [address] MCV (RBC) [Entitic vol] 95.5 fL Normal 81-99 [facility] Comment on above: Performed By: #### L 500.2500, L100.0100 #### [facility] [address] [place], [address] Monocytes/100 WBC (Bld) 8.9 % Normal 0-10 [facility] Comment on above: Performed By: #### L 500.2500, L100.0100 #### [facility] [address] [place], [address] Neutrophils/100 WBC (Bld) 54.6 % Normal 47-70 [facility] Comment on above: Performed By: #### L 500.2500, L100.0100 #### [facility] [address] [place], [address] Nucleated RBC (Bld) [#/Vol] 0 10*3/uL Normal 0-5 [facility] Comment on above: Performed By: #### L 500.2500, L100.0100 #### [facility] [address] [place], [address] Platelet mean volume (Bld) [Entitic vol] 9.4 fL Normal 6.2-12.0 [facility] Comment on above: Performed By: #### L 500.2500, L100.0100 #### [facility] [address] [place], [address] Platelets (Bld) [#/Vol] 297 10*3/uL Normal 150-450 [facility] Comment on above: Performed By: #### L 500.2500, L100.0100 #### [facility] [address] [place], [address] RBC (Bld) [#/Vol] 3.81 10*6/uL Low 4.2-5.4 [facility] Comment on above: Performed By: #### L 500.2500, L100.0100 #### [facility] [address] [place], [address] RDW SD 51.2 fl High 35.1-43.9 [facility] Comment on above: Performed By: #### L 500.2500, L100.0100 #### [facility] [address] [place], [address] WBC (Bld) [#/Vol] 8.7 10*3/uL Normal 4.4-11.0 [facility] Comment on above: Performed By: #### L 500.2500, L100.0100 #### [facility] [address] [place], [address] Carbon dioxide, total [Moles /volume] in Central venous bloodOrdered By: Jatin Garcia on 04-09-2025 CO2 [Moles/Vol] 19.8 mmol/L Low 21.0-32.0 [facility] Chloride assayOrdered By: Sammy Garcia on 04-09-2025 Chloride [Moles/Vol] 106 mmol/L 98-108 [facility] Emergency Department Summary on 04-09-2025 Emergency Department Summary [facility] Medical Records Department [address] [place] [address] Emergency Department Summary 04/09/25 MR#: [id number] Acct: [id number] Name: LALY NAVAS Rep #: [id number] : 1990 34 From: Jatin Garcia MD [...] has been doing but the pain is [id number] and she is feeling very nauseated and does not want to waste her pain management prescription by vomiting it up. She denies any fevers or chills. No dysuria or hematuria. She has been on antibiotics for several weeks, currently on Bactrim, and states that she was admitted to [place] where her oncologist and urologist are, she [...] has known about those issues for years. [facility] Medical History Nephrostomy present Kidney failure [...] throughout Psych (more content not included)... Normal [facility] Eosinophil percentageOrdered By: Jatin Garcia on 04-09-2025 Eosinophils/100 WBC (Bld) 3.2 % 0-5 [facility] Erythrocyte distribution wid th ratioOrdered By: Jatin Garcia on 04-09-2025 Erythrocyte distribution width (RBC) [Ratio] 14.6 % 11.6-14.6 [facility] Erythrocyte distribution wid th standard deviationOrdered By: Jatin Garcia on 04-09-2025 Erythrocyte distribution width (RBC) [Ratio] 51.2 fl High 35.1-43.9 [facility] Glomerular filtration rate ( GFR) estimation/1.73 sq m using serum, plasma, or whole bOrdered By: Jatin Garcia on 04-09-2025 GFR/1.73 sq M.predicted among non-blacks MDRD (S/P/Bld) [Vol rate/Area] 79 mL/min/{1.73_m2} >60 [facility] Comment on above: mL/min/1.73m2 CKD-EP I Creatinine Equation (2020) Hematocrit Auto (Bld) [Volum e fraction]Ordered By: Jatin Garcia on 04-09-2025 Hematocrit (Bld) [Volume fraction] 36.4 % Low 37-47 [facility] Hemoglobin measurementOrdere d By: Jatin Garcia on 04-09-2025 Hemoglobin (Bld) [Mass/Vol] 12.3 g/dL 12.0-15.0 [facility] Immature granulocytes/100 WB C Auto (Bld)Ordered By: Jatin Garcia on 04-09-2025 Immature granulocytes/100 WBC (Bld) 0.300 % 0.0-0.9 [facility] Comment on above: IG% - Immature Granu locytes (promyelocytes, myelocytes and metamyelocytes) > 1% indicates that a LEFT SHIFT is Present. Ketones Test strip Ql (U)Ord ered By: Jatin Garcia on 04-09-2025 Ketones Ql (U) Negative Negative [facility] MCV (mean corpuscular volume ) determinationOrdered By: Jatin Garcia on 04-09-2025 MCV (RBC) [Entitic vol] 95.5 fL 81-99 [facility] Mean corpuscular hemoglobin (MCH) determinationOrdered By: Jatin Garcia on 04-09-2025 MCH (RBC) [Entitic mass] 32.3 pg High 27.0-32.0 [facility] Mean corpuscular hemoglobin concentration (MCHC) determinationOrdered By: Jatin Garcia on 04-09-2025 MCHC (RBC) [Mass/Vol] 33.8 g/dL 32-36 [facility] Mean platelet volume determi nationOrdered By: Jatin Garcia on 04-09-2025 Platelet mean volume (Bld) [Entitic vol] 9.4 fL 6.2-12.0 [facility] Microscopic analysis of urin e for red blood cells (RBC)Ordered By: Jatin Garcia on 04-09-2025 Microscopic analysis of urine for red blood cells (RBC) 0 SEEN /hpf 0-5 [facility] Monocyte percentageOrdered B y: Jatin Garcia on 04-09-2025 Monocytes/100 WBC (Bld) 8.9 % 0-10 [facility] Mucus LM Ql (Urine sed)Order ed By: Jatin Garcia on 04-09-2025 Mucus Ql (Urine sed) 0 SEEN /hpf [facility] Neutrophil percentageOrdered By: Jatin Garcia on 04-09-2025 Neutrophils/100 WBC (Bld) 54.6 % 47-70 [facility] Nitrite Test strip Ql (U)Ord ered By: Jatin Garcia on 04-09-2025 Nitrite Ql (U) Negative Negative [facility] Nucleated red blood cell per centageOrdered By: Jatin Garcia on 04-09-2025 Nucleated RBC/100 WBC (Bld) [Ratio] 0 % 0-5 [facility] Platelet countOrdered By: Sammy Garcia on 04-09-2025 Platelets (Bld) [#/Vol] 297 10*3/uL 150-450 [facility] Potassium measurement (mass/ volume)Ordered By: Jatin Garcia on 04-09-2025 Potassium (Unsp spec) [Mass/Vol] 3.4 mmol/L 3.3-5.1 [facility] Protein Test strip Ql (U)Ord ered By: Jatin Garcia on 04-09-2025 Protein Ql (U) Negative Negative [facility] RBC Auto (Bld) [#/Vol]Ordere d By: Jatin Garcia on 04-09-2025 RBC (Bld) [#/Vol] 3.81 10*6/uL Low 4.2-5.4 [facility] Serum creatinine measurement (mass/volume)Ordered By: Jatin Garcia on 04-09-2025 Creatinine [Mass/Vol] 0.96 mg/dL 0.70-1.20 [facility] Serum glucose measurement (m ass/volume)Ordered By: Jatin Garcia on 04-09-2025 Glucose [Mass/Vol] 120 mg/dL High 70-99 [facility] Serum or plasma calcium zach urement (mass/volume)Ordered By: Jatin Garcia on 04-09-2025 Calcium [Mass/Vol] 9.1 mg/dL 7.6-11.0 [facility] Serum or plasma urea nitroge n measurement (mass/volume)Ordered By: Jatin Garcia on 04-09-2025 Urea nitrogen [Mass/Vol] 9 mg/dL 4-19 [facility] Sodium levelOrdered By: Gilbert Garcia on 04-09-2025 Sodium [Moles/Vol] 140 mmol/L 133-145 [facility] Squamous epithelial cells de tection in urine sediment by light microscopyOrdered By: Jatin Garcia on 04-09-2025 Epithelial cells.squamous LM Ql (Urine sed) 0-5 SEEN /hpf 5-10 [facility] Urinalysis, Completeon 04-09 EPI,SQUAMOUS 0-5 SEEN Normal 5-10 [facility] Comment on above: Order Comment: YOSELIN CTOR TO SPECIFY Performed By: #### L 500.2500, L100.0100 #### [facility] [address] [place], [address] WBC 0-5 SEEN Normal 0-5 [facility] Comment on above: Order Comment: YOSELIN CTOR TO SPECIFY Performed By: #### L 500.2500, L100.0100 #### [facility] [address] [place], [address] BACTERIA 0 SEEN Normal None Seen [facility] Comment on above: Order Comment: YOSELIN CTOR TO SPECIFY Performed By: #### L 500.2500, L100.0100 #### [facility] [address] [place], [address] Mucus Ql (Urine sed) 0 SEEN Normal [facility] Comment on above: Order Comment: YOSELIN CTOR TO SPECIFY Performed By: #### L 500.2500, L100.0100 #### [facility] [address] [place], [address] RBC 0 SEEN Normal 0-5 [facility] Comment on above: Order Comment: YOSELIN CTOR TO SPECIFY Performed By: #### L 500.2500, L100.0100 #### [facility] [address] [place], [address] Urine clarityOrdered By: Angel Garcia on 04-09-2025 Clarity (U) Clear Clear [facility] Urine color determinationOrd ered By: Jatin Garcia on 06-07-2025 Color (U) Straw Yellow [facility] Urine glucose detectionOrder ed By: Jatin Garcia on 04-09-2025 Glucose Ql (U) Normal mg/dl Normal [facility] Urine leukocyte esterase det ection by dipstickOrdered By: Jatin Garcia on 04-09-2025 Leukocyte esterase Test strip Ql (U) Negative Negative [facility] Urine pHOrdered By: Jatin Garcia on 04-09-2025 pH (U) 6.0 [pH] 5.0 - 8.0 [facility] Urine sediment bacteria coun t by microscopy (number/high power field)Ordered By: Jatin Garcia on 04-09-2025 Bacteria LM.HPF (Urine sed) [#/Area] 0 /[HPF] None Seen [facility] Urine specific gravity measu rementOrdered By: Jatin Garcia on 04-09-2025 Specific gravity (U) [Rel density] 1.010 1.002-1.030 [facility] Urine urobilinogen measureme ntOrdered By: Jatin Garcia on 04-09-2025 Urobilinogen Ql (U) Normal mg/dl Normal [facility] White blood cell (WBC) count Ordered By: Jatin Garcia on 04-09-2025 WBC (Bld) [#/Vol] 8.7 10*3/uL 4.4-11.0 [facility] White blood cell countOrdere d By: Jatin Garcia on 04-09-2025 White blood cell count 0-5 SEEN /hpf 0-5 [facility] .Auto Diffon 04-07-2025 Basophil, Absolute 0.1 10 3/mcL Normal 0.0-0.3 [facility] Comment on above: Performed By: #### G FR, LAC, ADIFF, ANEU, BMP, CBC, MG ####[address] [address] Basophils/100 WBC (Bld) 1.1 % Normal 0.0-2.5 [facility] Comment on above: Performed By: #### G FR, LAC, ADIFF, ANEU, BMP, CBC, MG ####[address] [address] Eosinophil, Absolute 0.2 10 3/mcL Normal 0.0-0.7 [facility] Comment on above: Performed By: #### G FR, LAC, ADIFF, ANEU, BMP, CBC, MG ####[address] [address] Eosinophils/100 WBC (Bld) 3.8 % Normal 0.0-6.0 [facility] Comment on above: Performed By: #### G FR, LAC, ADIFF, ANEU, BMP, CBC, MG ####[address] [address] Lymphocyte, Absolute 2.1 10 3/mcL Normal 0.9-4.3 [facility] Comment on above: Performed By: #### G FR, LAC, ADIFF, ANEU, BMP, CBC, MG ####[address] [address] Lymphocytes/100 WBC (Bld) 32.4 % Normal 20.0-40.0 [facility] Comment on above: Performed By: #### G FR, LAC, ADIFF, ANEU, BMP, CBC, MG ####[address] [address] Monocyte, Absolute 0.6 10 3/mcL Normal 0.1-1.4 [facility] Comment on above: Performed By: #### G FR, LAC, ADIFF, ANEU, BMP, CBC, MG ####[address] [address] Monocytes/100 WBC (Bld) 8.9 % Normal 2.0-13.0 [facility] Comment on above: Performed By: #### G FR, LAC, ADIFF, ANEU, BMP, CBC, MG ####[address] [address] Neutrophils/100 WBC (Bld) 53.8 % Normal 50.0-75.0 [facility] Comment on above: Performed By: #### G FR, LAC, ADIFF, ANEU, BMP, CBC, MG ####[address] [address] .GFRon 04-07-2025 Estimated Glomerular Filtration Rate 87 ml/min/1.73sqm Normal [facility] Comment on above: Result Comment: [...] FR, LAC, ADIFF, ANEU, BMP, CBC, MG ####[place] [id number] [place] [address] .NEUABSon 04-07-2025 Neutrophil, Absolute 3.5 10 3/mcL Normal 2.3-8.1 [facility] Comment on above: Performed By: #### G FR, LAC, ADIFF, ANEU, BMP, CBC, MG ####[address] [address] BMPon 04-07-2025 BUN/Creatinine Ratio 10.2 ratio Normal 10.0-22.0 [facility] Comment on above: Performed By: #### G FR, LAC, ADIFF, ANEU, BMP, CBC, MG ####[address] [address] Calcium [Mass/Vol] 9.4 mg/dL Normal 8.7-10.4 [facility] Comment on above: Performed By: #### G FR, LAC, ADIFF, ANEU, BMP, CBC, MG ####[place] [id number] [place] [address] Chloride [Moles/Vol] 110 mmol/L Normal 98-110 [facility] Comment on above: Performed By: #### G FR, LAC, ADIFF, ANEU, BMP, CBC, MG ####[address] [address] CO2 [Moles/Vol] 27 mmol/L Normal 22-32 [facility] Comment on above: Performed By: #### G FR, LAC, ADIFF, ANEU, BMP, CBC, MG ####[place] [address] Creatinine [Mass/Vol] 0.88 mg/dL Normal 0.50-1.20 [facility] Comment on above: Result Comment: Test ing performed on [employer] analyzer using enzymatic creatinine methodology. Performed By: #### G FR, LAC, ADIFF, ANEU, BMP, CBC, MG ####[place] [address] Electrolyte Balance 6.0 mEq/L Normal 4.0-15.0 [facility] Comment on above: Performed By: #### G FR, LAC, ADIFF, ANEU, BMP, CBC, MG ####[place] [address] Glucose [Mass/Vol] 101 mg/dL Normal 70-110 [facility] Comment on above: Performed By: #### G FR, LAC, ADIFF, ANEU, BMP, CBC, MG ####[place] [address] Potassium [Moles/Vol] 3.6 mmol/L Normal 3.5-5.0 [facility] Comment on above: Performed By: #### G FR, LAC, ADIFF, ANEU, BMP, CBC, MG ####[address] [address] Sodium [Moles/Vol] 143 mmol/L Normal 136-145 [facility] Comment on above: Performed By: #### G FR, LAC, ADIFF, ANEU, BMP, CBC, MG ####[place] [address] Urea nitrogen [Mass/Vol] 9.0 mg/dL Normal 8.0-22.0 [facility] Comment on above: Performed By: #### G FR, LAC, ADIFF, ANEU, BMP, CBC, MG ####[address] [address] CBCon 04-07-2025 Erythrocyte distribution width (RBC) [Ratio] 15.2 % Normal 11.5-15.5 [facility] Comment on above: Performed By: #### G FR, LAC, ADIFF, ANEU, BMP, CBC, MG ####[place] [address] Hematocrit (Bld) [Volume fraction] 38.2 % Normal 34.0-46.0 [facility] Comment on above: Performed By: #### G FR, LAC, ADIFF, ANEU, BMP, CBC, MG ####[place] [address] Hgb 13.2 G/dL Normal 12.0-16.0 [facility] Comment on above: Performed By: #### G FR, LAC, ADIFF, ANEU, BMP, CBC, MG ####[place] [address] MCH (RBC) [Entitic mass] 33.2 pg High 27.0-33.0 [facility] Comment on above: Performed By: #### G FR, LAC, ADIFF, ANEU, BMP, CBC, MG ####[place] [address] MCHC 34.6 G/dL Normal 32.0-36.0 [facility] Comment on above: Performed By: #### G FR, LAC, ADIFF, ANEU, BMP, CBC, MG ####[place] [address] MCV (RBC) [Entitic vol] 95.8 fL Normal 80.0-99.0 [facility] Comment on above: Performed By: #### G FR, LAC, ADIFF, ANEU, BMP, CBC, MG ####[place] [address] Platelet 335 10 3/mcL Normal 150-450 [facility] Comment on above: Performed By: #### G FR, LAC, ADIFF, ANEU, BMP, CBC, MG ####[place] [address] Platelet mean volume (Bld) [Entitic vol] 7.4 fL Normal 6.6-10.5 [facility] Comment on above: Performed By: #### G FR, LAC, ADIFF, ANEU, BMP, CBC, MG ####[facility] [place] [address] RBC 3.99 10 6/mcL Low 4.10-5.30 [facility] Comment on above: Performed By: #### G FR, LAC, ADIFF, ANEU, BMP, CBC, MG ####[facility] [place] [address] WBC 6.4 10 3/mcL Normal 4.5-10.8 [facility] Comment on above: Performed By: #### G FR, LAC, ADIFF, ANEU, BMP, CBC, MG ####[facility] [place] [address] LABORATORYOrdered By: SYSTEM SYSTEM on 04-07-2025 Basophils [...] 0.88 mg/dL Normal 0.50 - 1.20 mg/dL AH ADM SS Comment on above: Interpretive Data: T esting performed on [employer] analyzer using enzymatic creatinine methodology. Electrolyte Balance 6.0 mEq/L Normal 4.0 - 15 .0 mEq/L ADM SS Eosinophils (Bld) [#/Vol] 0.2 103/mcL Normal 0.0 - 0.7 10^3/mcL AH Workflow SS Eosinophils/100 WBC (Bld) 3.8 % [...] 7.4 fL Normal 6.6 - 10.5 fL Workflow SS Platelets (Bld) [#/Vol] 335 103/mcL [...] 10.2 ratio Normal 10.0 - 22.0 ratio ADM SS WBC (Bld) [#/Vol] 6.4 103/mcL Normal 4.5 - 10.8 10^3/mcL Workflow SS LACon 04-07-2025 Lactic Acid Lvl 0.5 mmol/L Normal 0.5-2.2 [facility] Comment on above: Performed By: #### G FR, LAC, ADIFF, ANEU, BMP, CBC, MG ####[address] [address] MGon 04-07-2025 Magnesium [Mass/Vol] 2.1 mg/dL Normal 1.6-2.4 [facility] Comment on above: Performed By: #### G FR, LAC, ADIFF, ANEU, BMP, CBC, MG ####[address] [address] .Auto Diffon 04-06-2025 Basophil, Absolute 0.1 10 3/mcL Normal 0.0-0.3 [facility] Comment on above: Performed By: #### A DIFF, ANEU, CBC, GFR, BMP, MDW ####[address] [address] Basophils/100 WBC (Bld) 1.3 % Normal 0.0-2.5 [facility] Comment on above: Performed By: #### A DIFF, ANEU, CBC, GFR, BMP, MDW ####[address] [address] Eosinophil, Absolute 0.1 10 3/mcL Normal 0.0-0.7 [facility] Comment on above: Performed By: #### A DIFF, ANEU, CBC, GFR, BMP, MDW ####[address] [address] Eosinophils/100 WBC (Bld) 1.5 % Normal 0.0-6.0 [facility] Comment on above: Performed By: #### A DIFF, ANEU, CBC, GFR, BMP, MDW ####[address] [address] Lymphocyte, Absolute 2.0 10 3/mcL Normal 0.9-4.3 [facility] Comment on above: Performed By: #### A DIFF, ANEU, CBC, GFR, BMP, MDW ####[address] [address] Lymphocytes/100 WBC (Bld) 20.5 % Normal 20.0-40.0 [facility] Comment on above: Performed By: #### A DIFF, ANEU, CBC, GFR, BMP, MDW ####[address] [address] Monocyte, Absolute 0.8 10 3/mcL Normal 0.1-1.4 [facility] Comment on above: Performed By: #### A DIFF, ANEU, CBC, GFR, BMP, MDW ####[address] [address] Monocytes/100 WBC (Bld) 7.9 % Normal 2.0-13.0 [facility] Comment on above: Performed By: #### A DIFF, ANEU, CBC, GFR, BMP, MDW ####[address] [address] Neutrophils/100 WBC (Bld) 68.8 % Normal 50.0-75.0 [facility] Comment on above: Performed By: #### A DIFF, ANEU, CBC, GFR, BMP, MDW ####[address] [address] .GFRon 04-06-2025 Estimated Glomerular Filtration Rate 80 ml/min/1.73sqm Normal [facility] Comment on above: Result Comment: [...] ANEU, CBC, GFR, BMP, YOUNG ####[place] [address] .MDWon 04-06-2025 Monocyte Distribution Width 21.04 High 0.00-20.00 [facility] Comment on above: Result Comment: For adults in ED, MDW>20.0 may be associated with a higher risk of sepsis during the first 12hrs of hospital admission Performed By: #### A DIFF, ANEU, CBC, GFR, BMP, YOUNG ####[place] [address] .NEUABSon 04-06-2025 Neutrophil, Absolute 6.8 10 3/mcL Normal 2.3-8.1 [facility] Comment on above: Performed By: #### A DIFF, ANEU, CBC, GFR, BMP, YOUNG ####[place] [address] BMPon 04-06-2025 BUN/Creatinine Ratio 10.5 ratio Normal 10.0-22.0 [facility] Comment on above: Performed By: #### A DIFF, ANEU, CBC, GFR, BMPYOUNG ####[place] [address] Calcium [Mass/Vol] 9.6 mg/dL Normal 8.7-10.4 [facility] Comment on above: Performed By: #### A DIFF, ANEU, CBC, GFR, BMP, YOUNG ####[address] [address] Chloride [Moles/Vol] 108 mmol/L Normal 98-110 [facility] Comment on above: Performed By: #### A DIFF, ANEU, CBC, GFR, BMP, YOUNG ####[address] [address] CO2 [Moles/Vol] 28 mmol/L Normal 22-32 [facility] Comment on above: Performed By: #### A DIFF, ANEU, CBC, GFR, BMP, YOUNG ####[address] [address] Creatinine [Mass/Vol] 0.95 mg/dL Normal 0.50-1.20 [facility] Comment on above: Result Comment: Test ing performed on [employer] analyzer using enzymatic creatinine methodology. Performed By: #### A DIFF, ANEU, CBC, GFR, BMPYOUNG ####[place] [address] Electrolyte Balance 4.0 mEq/L Normal 4.0-15.0 [facility] Comment on above: Performed By: #### A DIFF, ANEU, CBC, GFR, YOUNG FREGOSO ####[address] [address] Glucose [Mass/Vol] 84 mg/dL Normal 70-110 [facility] Comment on above: Performed By: #### A DIFF, ANEU, CBC, GFR, BMPYOUNG ####[address] [address] Potassium [Moles/Vol] 4.4 mmol/L Normal 3.5-5.0 [facility] Comment on above: Performed By: #### A DIFF, ANEU, CBC, GFR, YOUNG FREGOSO ####[address] [address] Sodium [Moles/Vol] 140 mmol/L Normal 136-145 [facility] Comment on above: Performed By: #### A DIFF, ANEU, CBC, GFR, BMP, YOUNG ####[address] [address] Urea nitrogen [Mass/Vol] 10.0 mg/dL Normal 8.0-22.0 [facility] Comment on above: Performed By: #### A DIFF, ANEU, CBC, GFR, BMP, YOUNG ####[place] [address] CBCon 04-06-2025 Erythrocyte distribution width (RBC) [Ratio] 15.2 % Normal 11.5-15.5 [facility] Comment on above: Performed By: #### A DIFF, ANEU, CBC, GFR, BMP, YOUNG ####[place] [address] Hematocrit (Bld) [Volume fraction] 40.7 % Normal 34.0-46.0 [facility] Comment on above: Performed By: #### A DIFF, ANEU, CBC, GFR, BMP, YOUNG ####[place] [address] Hgb 13.7 G/dL Normal 12.0-16.0 [facility] Comment on above: Performed By: #### A DIFF, ANEU, CBC, GFR, BMP, YOUNG ####[place] [address] MCH (RBC) [Entitic mass] 32.5 pg Normal 27.0-33.0 [facility] Comment on above: Performed By: #### A DIFF, ANEU, CBC, GFR, BMP, YOUNG ####[place] [address] MCHC 33.8 G/dL Normal 32.0-36.0 [facility] Comment on above: Performed By: #### A DIFF, ANEU, CBC, GFR, BMP, YOUNG ####[place] [address] MCV (RBC) [Entitic vol] 96.3 fL Normal 80.0-99.0 [facility] Comment on above: Performed By: #### A DIFF, ANEU, CBC, GFR, BMP, W ####[place] [address] Platelet 329 10 3/mcL Normal 150-450 [facility] Comment on above: Performed By: #### A DIFF, ANEU, CBC, GFR, BMP, MDW ####[place] [address] Platelet mean volume (Bld) [Entitic vol] 7.5 fL Normal 6.6-10.5 [facility] Comment on above: Performed By: #### A DIFF, ANEU, CBC, GFR, BMP, MDW ####[place] [address] RBC 4.22 10 6/mcL Normal 4.10-5.30 [facility] Comment on above: Performed By: #### A DIFF, ANEU, CBC, GFR, BMP, MDW ####[place] [address] WBC 9.9 10 3/mcL Normal 4.5-10.8 [facility] Comment on above: Performed By: #### A DIFF, ANEU, CBC, GFR, BMP, W ####[place] [address] LABORATORYOrdered By: SYSTEM SYSTEM on 04-06-2025 Basophils [...] above: Interpretive Data: T esting performed on [employer] analyzer using enzymatic creatinine methodology. Electrolyte Balance [...] Filtration Rate 80 ml/min/1.73sqm Invalid Interpretation Code ADM SS Comment [...] 10^3/mcL AH Workflow SS LABORATORYOrdered By: Deshaun Fountain on 04-06-2025 Appearance (U) Clear (04/06/25 3:08 [...] Type Clean Catch (04/06/25 3:08 PM) Normal Auto Urine SS UA Urobilinogen 0.2 E.U./dL Normal 0.2-1.0 Auto Urine SS UAon 04-06-2025 Color (U) Yellow Normal [facility] Comment on above: Performed By: #### U A ####[place] [address] Glucose (U) [Mass/Vol] Negative Normal Negative [facility] Comment on above: Performed By: #### U A ####[place] [address] Ketones Ql (U) Negative Normal Neg-Trace [facility] Comment on above: Performed By: #### U A ####[place] [address] UA Appear Clear Normal Clear [facility] Comment on above: Performed By: #### U A ####[place] [address] UA Blood Negative Normal Neg-Trace [facility] Comment on above: Performed By: #### U A ####[place] [address] UA Leuk Est Negative Normal Negative [facility] Comment on above: Performed By: #### U A ####[place] [address] UA Nitrite Negative Normal Negative [facility] Comment on above: Performed By: #### U A ####[place] [address] UA pH 6.5 Normal 5.0 - 8.0 [facility] Comment on above: Performed By: #### U A ####[place] [address] UA Protein Negative Normal Negative [facility] Comment on above: Performed By: #### U A ####[place] [address] UA Spec Grav <=1.005 Abnormal 1.006-1.029 [facility] Comment on above: Performed By: #### U A ####[place] [address] UA Specimen Type Clean Catch Normal [facility] Comment on above: Performed By: #### U A ####[place] [address] UA Urobilinogen 0.2 E.U./dL Normal 0.2-1.0 [facility] Comment on above: Performed By: #### U A ####[place] [address] Urobilinogen (U) [Mass/Vol] Negative Normal Neg-Trace [facility] Comment on above: Performed By: #### U A ####[place] [address] US RENALon 04-06-2025 US RENAL Normal [facility] XR ABDOMEN APon 04-06-2025 XR ABDOMEN AP Normal [facility] .Auto Diffon 04-05-2025 Basophil, Absolute 0.1 10 3/mcL Normal 0.0-0.3 [facility] Comment on above: Performed By: #### B MP, GFR, ANEU, CBC, ADIFF ####[place] [address] Basophils/100 WBC (Bld) 1.4 % Normal 0.0-2.5 [facility] Comment on above: Performed By: #### B MP, GFR, ANEU, CBC, ADIFF ####[place] [address] Eosinophil, Absolute 0.3 10 3/mcL Normal 0.0-0.7 [facility] Comment on above: Performed By: #### B MP, GFR, ANEU, CBC, ADIFF ####[address] [address] Eosinophils/100 WBC (Bld) 3.7 % Normal 0.0-6.0 [facility] Comment on above: Performed By: #### B MP, GFR, ANEU, CBC, ADIFF ####[address] [address] Lymphocyte, Absolute 2.2 10 3/mcL Normal 0.9-4.3 [facility] Comment on above: Performed By: #### B MP, GFR, ANEU, CBC, ADIFF ####[address] [address] Lymphocytes/100 WBC (Bld) 31.9 % Normal 20.0-40.0 [facility] Comment on above: Performed By: #### B MP, GFR, ANEU, CBC, ADIFF ####[address] [address] Monocyte, Absolute 0.7 10 3/mcL Normal 0.1-1.4 [facility] Comment on above: Performed By: #### B MP, GFR, ANEU, CBC, ADIFF ####[address] [address] Monocytes/100 WBC (Bld) 9.8 % Normal 2.0-13.0 [facility] Comment on above: Performed By: #### B MP, GFR, ANEU, CBC, ADIFF ####[address] [address] Neutrophils/100 WBC (Bld) 53.2 % Normal 50.0-75.0 [facility] Comment on above: Performed By: #### B MP, GFR, ANEU, CBC, ADIFF ####[address] [address] .GFRon 04-05-2025 Estimated Glomerular Filtration Rate 96 ml/min/1.73sqm Normal [facility] Comment on above: Result Comment: [...] #### B MP, GFR, ANEU, CBC, ADIFF ####[address] [address] .NEUABSon 04-05-2025 Neutrophil, Absolute 3.7 10 3/mcL Normal 2.3-8.1 [facility] Comment on above: Performed By: #### B MP, GFR, ANEU, CBC, ADIFF ####[address] [address] BMPon 04-05-2025 BUN/Creatinine Ratio 12.3 ratio Normal 10.0-22.0 [facility] Comment on above: Order Comment: Routi ne for 0501 the morning of patient admission. Performed By: #### B MP, GFR, ANEU, CBC, ADIFF ####[place] [address] Calcium [Mass/Vol] 8.9 mg/dL Normal 8.7-10.4 [facility] Comment on above: Order Comment: Routi ne for 0501 the morning of patient admission. Performed By: #### B MP, GFR, ANEU, CBC, ADIFF ####[place] [address] Chloride [Moles/Vol] 110 mmol/L Normal 98-110 [facility] Comment on above: Order Comment: Routi ne for 0501 the morning of patient admission. Performed By: #### B MP, GFR, ANEU, CBC, ADIFF ####[address] [address] CO2 [Moles/Vol] 26 mmol/L Normal 22-32 [facility] Comment on above: Order Comment: Routi ne for 0501 the morning of patient admission. Performed By: #### B MP, GFR, ANEU, CBC, ADIFF ####[address] [address] Creatinine [Mass/Vol] 0.81 mg/dL Normal 0.50-1.20 [facility] Comment on above: Order Comment: Routi ne for 0501 the morning of patient admission. Result Comment: Test ing performed on [employer] analyzer using enzymatic creatinine methodology. Performed By: #### B MP, GFR, ANEU, CBC, ADIFF ####[address] [address] Electrolyte Balance 5.0 mEq/L Normal 4.0-15.0 [facility] Comment on above: Order Comment: Routi ne for 0501 the morning of patient admission. Performed By: #### B MP, GFR, ANEU, CBC, ADIFF ####[address] [address] Glucose [Mass/Vol] 84 mg/dL Normal 70-110 [facility] Comment on above: Order Comment: Routi ne for 0501 the morning of patient admission. Performed By: #### B MP, GFR, ANEU, CBC, ADIFF ####[place] [id number] Potassium [Moles/Vol] 4.2 mmol/L Normal 3.5-5.0 [facility] Comment on above: Order Comment: Routi ne for 0501 the morning of patient admission. Result Comment: Spec imen slightly hemolyzed. Performed By: #### B MP, GFR, ANEU, CBC, ADIFF ####[place] [id number] Sodium [Moles/Vol] 141 mmol/L Normal 136-145 [facility] Comment on above: Order Comment: Routi ne for 0501 the morning of patient admission. Performed By: #### B MP, GFR, ANEU, CBC, ADIFF ####[place] [id number] Urea nitrogen [Mass/Vol] 10.0 mg/dL Normal 8.0-22.0 [facility] Comment on above: Order Comment: Routi ne for 0501 the morning of patient admission. Performed By: #### B MP, GFR, ANEU, CBC, ADIFF ####[address] [address] CBCon 04-05-2025 Erythrocyte distribution width (RBC) [Ratio] 15.6 % High 11.5-15.5 [facility] Comment on above: Order Comment: Routi ne for 0501 the morning of patient admission. Performed By: #### B MP, GFR, ANEU, CBC, ADIFF ####[place] [address] Hematocrit (Bld) [Volume fraction] 37.4 % Normal 34.0-46.0 [facility] Comment on above: Order Comment: Routi ne for 0501 the morning of patient admission. Performed By: #### B MP, GFR, ANEU, CBC, ADIFF ####[place] [address] Hgb 12.7 G/dL Normal 12.0-16.0 [facility] Comment on above: Order Comment: Routi ne for 0501 the morning of patient admission. Performed By: #### B MP, GFR, ANEU, CBC, ADIFF ####[place] [address] MCH (RBC) [Entitic mass] 32.9 pg Normal 27.0-33.0 [facility] Comment on above: Order Comment: Routi ne for 0501 the morning of patient admission. Performed By: #### B MP, GFR, ANEU, CBC, ADIFF ####[place] [address] MCHC 34.0 G/dL Normal 32.0-36.0 [facility] Comment on above: Order Comment: Routi ne for 0501 the morning of patient admission. Performed By: #### B MP, GFR, ANEU, CBC, ADIFF ####[place] [address] MCV (RBC) [Entitic vol] 96.7 fL Normal 80.0-99.0 [facility] Comment on above: Order Comment: Routi ne for 0501 the morning of patient admission. Performed By: #### B MP, GFR, ANEU, CBC, ADIFF ####[place] [address] Platelet 369 10 3/mcL Normal 150-450 [facility] Comment on above: Order Comment: Routi ne for 0501 the morning of patient admission. Performed By: #### B MP, GFR, ANEU, CBC, ADIFF ####[address] [address] Platelet mean volume (Bld) [Entitic vol] 7.7 fL Normal 6.6-10.5 [facility] Comment on above: Order Comment: Routi ne for 0501 the morning of patient admission. Performed By: #### B MP, GFR, ANEU, CBC, ADIFF ####[place] [address] RBC 3.87 10 6/mcL Low 4.10-5.30 [facility] Comment on above: Order Comment: Routi ne for 0501 the morning of patient admission. Performed By: #### B MP, GFR, ANEU, CBC, ADIFF ####[place] [address] WBC 7.0 10 3/mcL Normal 4.5-10.8 [facility] Comment on above: Order Comment: Routi ne for 0501 the morning of patient admission. Performed By: #### B MP, GFR, ANEU, CBC, ADIFF ####[place] [address] CURon 04-05-2025 [facility] MAIN LABORATORYOrdered By: SYSTEM SYSTEM on 04-05-2025 [...] above: Interpretive Data: T esting performed on [employer] analyzer using enzymatic creatinine methodology. Electrolyte Balance [...] 7.7 fL Normal 6.6 - 10.5 fL AH Workflow SS Platelets (Bld) [#/Vol] 369 103/mcL [...] 12.3 ratio Normal 10.0 - 22.0 ratio AH ADM SS WBC (Bld) [#/Vol] 7.0 103/mcL Normal 4.5 - 10.8 10^3/mcL Workflow SS .Auto Diffon 04-04-2025 Basophil, Absolute 0.2 10 3/mcL Normal 0.0-0.3 [facility] Comment on above: Performed By: #### C BC, BMP, GFR, CHEN LEVI MDW ####[place] [address] [place] [address] Basophils/100 WBC (Bld) 1.4 % Normal 0.0-2.5 [facility] Comment on above: Performed By: #### C BC, BMP, GFR, CHEN LEVI MDW ####[place] [address] [address] [place] [address] Eosinophil, Absolute 0.2 10 3/mcL Normal 0.0-0.7 [facility] Comment on above: Performed By: #### C BC, BMP, GFR, CHEN LEVI MDW ####[place] [address] [address] Eosinophils/100 WBC (Bld) 1.3 % Normal 0.0-6.0 [facility] Comment on above: Performed By: #### C BC, BMP, GFR, ANEUCHEN MDW ####[address] [address] Lymphocyte, Absolute 2.3 10 3/mcL Normal 0.9-4.3 [facility] Comment on above: Performed By: #### C BC, BMP, GFR, ANEUCHEN MDW ####[address] [address] Lymphocytes/100 WBC (Bld) 20.4 % Normal 20.0-40.0 [facility] Comment on above: Performed By: #### C BC, BMP, GFR, CHEN LEVI MDW ####[address] [address] Monocyte, Absolute 1.1 10 3/mcL Normal 0.1-1.4 [facility] Comment on above: Performed By: #### C BC, BMP, GFR, ANEUCHEN MDW ####[address] [address] Monocytes/100 WBC (Bld) 9.3 % Normal 2.0-13.0 [facility] Comment on above: Performed By: #### C BC, BMP, GFR, CHEN LEVI MDW ####[address] [address] Neutrophils/100 WBC (Bld) 67.6 % Normal 50.0-75.0 [facility] Comment on above: Performed By: #### C BC, BMP, GFR, CHEN LEVI MDW ####[address] [address] .GFRon 04-04-2025 Estimated Glomerular Filtration Rate 92 ml/min/1.73sqm Normal [facility] Comment on above: Result Comment: [...] C BC, BMP, GFR, CHEN LEVI MDW ####[address] [address] .MDWon 04-04-2025 Monocyte Distribution Width 18.36 Normal 0.00-20.00 [facility] Comment on above: Result Comment: For ED adult patients suspected of sepsis, MDW<=20.0 does not rule out sepsis or risk of sepsis Performed By: #### C BC, BMP, GFR, CHEN LEVI MDW ####[place] [address] .NEUABSon 04-04-2025 Neutrophil, Absolute 7.8 10 3/mcL Normal 2.3-8.1 [facility] Comment on above: Performed By: #### C BC, BMP, GFR, CHEN LEVI MDW ####[place] [address] BMPon 04-04-2025 BUN/Creatinine Ratio 14.3 ratio Normal 10.0-22.0 [facility] Comment on above: Performed By: #### C BC, BMP, GFR, CHEN LEVI MDW ####[place] [address] Calcium [Mass/Vol] 10.2 mg/dL Normal 8.7-10.4 [facility] Comment on above: Performed By: #### C BC, BMP, GFR, CHEN LEVI MDW ####[place] [address] Chloride [Moles/Vol] 108 mmol/L Normal 98-110 [facility] Comment on above: Performed By: #### C BC, BMP, GFR, CHEN LEVI MDW ####[address] [address] CO2 [Moles/Vol] 27 mmol/L Normal 22-32 [facility] Comment on above: Performed By: #### C BC, BMP, GFR, CHEN LEVI MDW ####[address] [address] Creatinine [Mass/Vol] 0.84 mg/dL Normal 0.50-1.20 [facility] Comment on above: Result Comment: Test ing performed on [employer] analyzer using enzymatic creatinine methodology. Performed By: #### C BC, BMP, GFR, CHEN LEVI MDW ####[address] [address] Electrolyte Balance 6.0 mEq/L Normal 4.0-15.0 [facility] Comment on above: Performed By: #### C BC, BMP, GFR, CHEN LEVI MDW ####[address] [address] Glucose [Mass/Vol] 78 mg/dL Normal 70-110 [facility] Comment on above: Performed By: #### C BC, BMP, GFR, CHEN LEVI MDW ####[address] [address] Potassium [Moles/Vol] 3.8 mmol/L Normal 3.5-5.0 [facility] Comment on above: Performed By: #### C BC, BMP, GFR, CHEN LEVI MDW ####[address] [address] Sodium [Moles/Vol] 141 mmol/L Normal 136-145 [facility] Comment on above: Performed By: #### C BC, BMP, GFR, CHEN LEVI MDW ####[address] [address] Urea nitrogen [Mass/Vol] 12.0 mg/dL Normal 8.0-22.0 [facility] Comment on above: Performed By: #### C BC, BMP, GFR, CHEN LEVI MDW ####[place] [address] CBCon 04-04-2025 Erythrocyte distribution width (RBC) [Ratio] 15.6 % High 11.5-15.5 [facility] Comment on above: Performed By: #### C BC, BMP, GFR, CHEN LEVI MDW ####[place] [address] Hematocrit (Bld) [Volume fraction] 45.3 % Normal 34.0-46.0 [facility] Comment on above: Performed By: #### C BC, BMP, GFR, CHEN LEVI MDW ####[place] [address] Hgb 15.1 G/dL Normal 12.0-16.0 [facility] Comment on above: Performed By: #### C BC, BMP, GFR, CHEN LEVI MDW ####[place] [address] MCH (RBC) [Entitic mass] 32.1 pg Normal 27.0-33.0 [facility] Comment on above: Performed By: #### C BC, BMP, GFR, CHEN LEVI MDW ####[place] [address] MCHC 33.3 G/dL Normal 32.0-36.0 [facility] Comment on above: Performed By: #### C BC, BMP, GFR, CHEN LEVI MDW ####[place] [address] MCV (RBC) [Entitic vol] 96.4 fL Normal 80.0-99.0 [facility] Comment on above: Performed By: #### C BC, BMP, GFR, CHEN LEVI MDW ####[place] [address] Platelet 381 10 3/mcL Normal 150-450 [facility] Comment on above: Performed By: #### C BC, BMP, GFR, CHEN LEVI MDW ####[place] [address] Platelet mean volume (Bld) [Entitic vol] 7.8 fL Normal 6.6-10.5 [facility] Comment on above: Performed By: #### C BC, BMP, GFR, CHEN LEVI MDW ####[facility] [place] [address] RBC 4.70 10 6/mcL Normal 4.10-5.30 [facility] Comment on above: Performed By: #### C BC, BMP, GFR, CHEN LEVI MDW ####[facility] [place] [address] WBC 11.5 10 3/mcL High 4.5-10.8 [facility] Comment on above: Performed By: #### C BC, BMP, GFR, CHEN LEVI MDW ####[facility] [place] [address] [address] ABDOMEN/PELVIS W/O CONTRA STon 04-04-2025 CT ABDOMEN/PELVIS W/O CONTRAST Normal [facility] LABORATORYOrdered By: Bel Wetzel on 04-04-2025 Beta HCG ( test) Ql (U) Negative (04/04/25 3:11 PM) [facility] Work Phone: Urine Preg POC Confirmation Sent to lab (04/04/25 3:11 PM) [facility] Work Phone: LABORATORYOrdered By: Jaguar Cisneros [...] above: Interpretive Data: T esting performed on [employer] analyzer using enzymatic creatinine methodology. Electrolyte Balance [...] Probable Contamination. Suggest recollection if clinically indicated. [facility] Work Phone: No Panel InformationOrdered By: Jaguar Cisneros on 04-04-2025 UA Nitrite Negative (04/04/25 2:55 PM) Normal Negative AH Auto Urine SS UA Urobilinogen 0.2 E.U./dL Normal 0.2-1.0 AH Auto Urine SS UAon 04-04-2025 Color (U) Yellow Normal [facility] Comment on above: Order Comment: To be taken from nephrostomy Performed By: #### U AMIC, UA ####[place] [id number] [place] [address] Glucose (U) [Mass/Vol] Negative Normal Negative [facility] Comment on above: Order Comment: To be taken from nephrostomy Performed By: #### U AMIC, UA ####[facility] [place] [address] Ketones Ql (U) Negative Normal Neg-Trace [facility] Comment on above: Order Comment: To be taken from nephrostomy Performed By: #### U AMIC, UA ####[facility] [place] [address] UA Appear Cloudy Abnormal Clear [facility] Comment on above: Order Comment: To be taken from nephrostomy Performed By: #### U AMIC, UA ####[facility] [place] [address] UA Blood Moderate Abnormal Neg-Trace [facility] Comment on above: Order Comment: To be taken from nephrostomy Performed By: #### U AMIC, UA ####[facility] [place] [address] UA Leuk Est Large Abnormal Negative [facility] Comment on above: Order Comment: To be taken from nephrostomy Performed By: #### U AMIC, UA ####[facility] [place] [address] UA Nitrite Negative Normal Negative [facility] Comment on above: Order Comment: To be taken from nephrostomy Performed By: #### U AMIC, UA ####[facility] [place] [address] UA pH >=8.5 Abnormal 5.0 - 8.0 [facility] Comment on above: Order Comment: To be taken from nephrostomy Performed By: #### U AMIC, UA ####[place] [address] [place] [address] UA Protein 100 mg/dL Abnormal Negative [facility] Comment on above: Order Comment: To be taken from nephrostomy Performed By: #### U AMIC, UA ####[facility] [place] [address] UA Spec Grav 1.010 Normal 1.006-1.029 [facility] Comment on above: Order Comment: To be taken from nephrostomy Performed By: #### U AMIC, UA ####[place] [address] UA Specimen Type Not Given [facility] Comment on above: Order Comment: To be taken from nephrostomy Performed By: #### U AMIC, UA ####[place] [address] UA Urobilinogen 0.2 E.U./dL Normal 0.2-1.0 [facility] Comment on above: Order Comment: To be taken from nephrostomy Performed By: #### U AMIC, UA ####[place] [address] Urobilinogen (U) [Mass/Vol] Negative Normal Neg-Trace [facility] Comment on above: Order Comment: To be taken from nephrostomy Performed By: #### U AMIC, UA ####[place] [address] Color (U) Yellow Normal [facility] Comment on above: Performed By: #### U A ####[place] [address] Glucose (U) [Mass/Vol] Negative Normal Negative [facility] Comment on above: Performed By: #### U A ####[address] [place] [address] Ketones Ql (U) Negative Normal Neg-Trace [facility] Comment on above: Performed By: #### U A ####[place] [address] UA Appear Clear Normal Clear [facility] Comment on above: Performed By: #### U A ####[place] [address] UA Blood Negative Normal Neg-Trace [facility] Comment on above: Performed By: #### U A ####[place] [address] UA Leuk Est Trace Normal Negative [facility] Comment on above: Performed By: #### U A ####[place] [address] UA Nitrite Negative Normal Negative [facility] Comment on above: Performed By: #### U A ####[place] [address] UA pH 6.5 Normal 5.0 - 8.0 [facility] Comment on above: Performed By: #### U A ####[place] [address] UA Protein Negative Normal Negative [facility] Comment on above: Performed By: #### U A ####[place] [address] UA Spec Grav 1.015 Normal 1.006-1.029 [facility] Comment on above: Performed By: #### U A ####[place] [address] UA Specimen Type Clean Catch Normal [facility] Comment on above: Performed By: #### U A ####[place] [address] UA Urobilinogen 0.2 E.U./dL Normal 0.2-1.0 [facility] Comment on above: Performed By: #### U A ####[place] [address] Urobilinogen (U) [Mass/Vol] Negative Normal Neg-Trace [facility] Comment on above: Performed By: #### U A ####[facility] [place] [address] UAMICon 04-04-2025 UA Bacteria 2+ /hpf Abnormal Negative [facility] Comment on above: Performed By: #### U AMIC, UA ####[facility] [place] [address] UA RBC 10-20 Abnormal 0-2 [facility] Comment on above: Performed By: #### U AMIC, UA ####[facility] [place] [address] UA Squam Epithelial 3-5 Normal 0-20 [facility] Comment on above: Performed By: #### U AMIC, UA ####[facility] [place] [address] UA Trip Rai Crystals 3+ /hpf Normal [facility] Comment on above: Performed By: #### U AMIC, UA ####[facility] [place] [address] UA WBC 10-20 Abnormal 0-5 [facility] Comment on above: Performed By: #### U AMIC, UA ####[facility] [place] [address] CBC + DIFFon 04-03-2025 Baso # 0.04 x10EE3/UL Normal 0.00 - 0.10 [facility] Comment on above: Performed By: #### 2 84345 ####[facility],[address] [place] [address] Basophils/100 WBC (Bld) 0.4 % Normal 0.0 - 2.0 [facility] Comment on above: Performed By: #### 2 81325 ####[facility],[address] [place] [address] CBC + DIFF Normal [facility] Comment on above: Result Comment: CBC- COMPLETE BLOOD COUNT Performed By: #### 2 50277 ####[facility],[address] [place] [address] EO # 0.16 x10EE3/UL Normal 0.00 - 0.50 [facility] Comment on above: Performed By: #### 2 08470 ####[facility],[address] [place], [place] [id number] Eosinophils/100 WBC (Bld) 1.6 % Normal 0.0 - 7.0 [facility] Comment on above: Performed By: #### 2 66213 ####[facility],[address] [place] [address] Erythrocyte distribution width (RBC) [Ratio] 13.9 % Normal 12.0 - 15.6 [facility] Comment on above: Performed By: #### 2 96238 ####[facility],[address] [place] [address] Hematocrit (Bld) [Volume fraction] 39.2 % Normal 34.0 - 46.0 [facility] Comment on above: Performed By: #### 2 13016 ####[facility],[address] [place] [address] Hemoglobin (Bld) [Mass/Vol] 13.7 g/dL Normal 12.0 - 16.0 [facility] Comment on above: Performed By: #### 2 96180 ####[facility],[address] [place] [address] Lymph # 2.51 x10EE3/UL Normal 0.80 - 2.80 [facility] Comment on above: Performed By: #### 2 15079 ####[facility],[address] [place], [place] [id number] Lymphocytes/100 WBC (Bld) 24.6 % Normal 20.0 - 45.0 [facility] Comment on above: Performed By: #### 2 [address]43 ####[place] [id number] MANUAL DIFF N/A Normal [facility] Comment on above: Performed By: #### 2 20526 ####[facility],[address] [place], [place] [id number] MCH (RBC) [Entitic mass] 33 pg Normal 27 - 33 [facility] Comment on above: Performed By: #### 2 11784 ####[place] [address] MCHC 35 X10 3 Normal 32 - 36 [facility] Comment on above: Performed By: #### 2 93862 ####[facility],[address] [place] [address] MCV (RBC) [Entitic vol] 95 fL Normal 80 - 99 [facility] Comment on above: Performed By: #### 2 32227 ####[facility],[address] [place] [address] [place] # 0.91 x10EE3/UL Normal 0.20 - 1.00 [facility] Comment on above: Performed By: #### 2 67707 ####[place] [address] MONOS % 8.9 % Normal 0.0 - 10.0 [facility] Comment on above: Performed By: #### 2 97027 ####[place] [address] Morphology Efra (Bld) [Interp] N/A Normal [facility] Comment on above: Performed By: #### 2 90842 ####[facility],[address] [place] [address] Neut # 6.59 x10EE3/UL Normal 1.50 - 7.10 [facility] Comment on above: Performed By: #### 2 57705 ####[place] [address] Neutrophils/100 WBC (Bld) 64.6 % Normal 46.0 - 76.0 [facility] Comment on above: Performed By: #### 2 00425 ####[place] [address] PLATELET 361 x10EE3/UL Normal 150 - 450 [facility] Comment on above: Performed By: #### 2 95804 ####[facility],[address] [place] [address] 08862 Platelet mean volume (Bld) [Entitic vol] 7.1 fL Normal 6.6 - 10.5 [facility] Comment on above: Result Comment: AUTO MATED DIFFERENTIAL Performed By: #### 2 30199 ####[facility],[address] [place] [address] RBC 4.13 x 10EE6/UL Normal 4.10 - 5.30 [facility] Comment on above: Performed By: #### 2 87027 ####[facility],[address] [place], [place] [address] WBC 10.2 x 10EE3/UL Normal 4.5 - 10.8 [facility] Comment on above: Performed By: #### 2 58810 ####[facility],[address] [place], [place] [address] CMP with eGFRon 04-03-2025 AGE 34 years Normal [facility] Comment on above: Performed By: #### 2 06581 ####[facility],[address] [place], [place] [address] Albumin [Mass/Vol] 3.8 g/dL Normal 3.4 - 5.0 [facility] Comment on above: Performed By: #### 2 55345 ####[facility],[address] [place] [address] 91476 Albumin/Globulin [Mass ratio] 1.1 {ratio} Normal 0.9 - 1.6 [facility] Comment on above: Performed By: #### 2 71858 ####[facility],[address] [place] [address] 43988 ALK PHOS 85 U/L Normal 46 - 116 [facility] Comment on above: Performed By: #### 2 20904 ####[facility],[address] [place] [address] 26041 ALT [Catalytic activity/Vol] 14 U/L Low 16 - 63 [facility] Comment on above: Performed By: #### 2 67820 ####[facility],[address] [place] [address] 09138 Anion gap [Moles/Vol] 13 mmol/L Normal 10 - 20 [facility] Comment on above: Performed By: #### 2 62639 ####[facility],[address] [place] [address] 83740 AST [Catalytic activity/Vol] 18 U/L Normal 13 - 39 [facility] Comment on above: Performed By: #### 2 05950 ####[facility],[address] [place] [address] 96470 B/C RATIO 14 ratio Normal 0 - 30 [facility] Comment on above: Performed By: #### 2 04988 ####[facility],[address] [place] [address] 96638 Bilirubin [Mass/Vol] 0.4 mg/dL Normal 0.2 - 1.0 [facility] Comment on above: Performed By: #### 2 79089 ####[facility],[address] [place] [address] 65670 Calcium [Mass/Vol] 9.2 mg/dL Normal 8.5 - 10.1 [facility] Comment on above: Performed By: #### 2 18991 ####[facility],[address] [place] [address] 88926 Chloride [Moles/Vol] 103 mmol/L Normal 98 - 107 [facility] Comment on above: Performed By: #### 2 84288 ####[facility],[address] [place] [address] 26488 CMP with eGFR Normal [facility] Comment on above: Result Comment: COMP REHENSIVE METABOLIC PANEL Performed By: #### 2 66068 ####[facility],[address] [place] [address] 70016 CO2 [Moles/Vol] 25.0 mmol/L Normal 21.0 - 32.0 [facility] Comment on above: Performed By: #### 2 75233 ####[facility],[address] [place] [address] 37620 Creatinine [Mass/Vol] 0.95 mg/dL Normal 0.55 - 1.02 [facility] Comment on above: Performed By: #### 2 59073 ####[facility],[address] [place] [address] 00952 GFR/1.73 sq M.predicted among non-blacks MDRD (S/P/Bld) [Vol rate/Area] mL/min/{1.73_m2} Normal 60 - 999 [facility] Comment on above: Performed By: #### 2 49683 ####[facility],[address] [place] [address] Result Comment: ACCO RDING TO THE NATIONAL KIDNEY DISEASE EDUCATION PROGRAM(NKDE), A NORMAL eGFRIS A VALUE GREATER THAN OR EQUAL TO 60 ML/MIN/1.73 SQ METERS.CHRONIC KIDNEY DISEASE: <60mL/MIN/1.73 SQ METERSKIDNEY FAILURE: <15mL/MIN/1.73 SQ METERSTHIS TEST SHOULD ONLY BE USED FOR PATIENTS 18 YEARS OF AGE AND OLDER. Globulin (S) [Mass/Vol] 3.5 g/dL Normal 1.5 - 3.8 [facility] Comment on above: Performed By: #### 2 81627 ####[facility],[address] [place] [address] 37422 Glucose [Mass/Vol] 78 mg/dL Normal 74 - 106 [facility] Comment on above: Performed By: #### 2 08563 ####[facility],[address] [place] [address] 09889 Potassium [Moles/Vol] 4.0 mmol/L Normal 3.5 - 5.1 [facility] Comment on above: Performed By: #### 2 44176 ####[facility],[address] [place] [address] 28652 Protein [Mass/Vol] 7.3 g/dL Normal 6.4 - 8.2 [facility] Comment on above: Performed By: #### 2 29518 ####[facility],[address] [place] [address] 60913 Sodium [Moles/Vol] 137 mmol/L Normal 136 - 145 [facility] Comment on above: Performed By: #### 2 73247 ####[facility],[address] [place] [address] 18898 Urea nitrogen [Mass/Vol] 13 mg/dL Normal 7 - 18 [facility] Comment on above: Performed By: #### 2 13688 ####[facility],[address] [place], [place] [address] CT ABDOMEN/PELVIS WOon 04-03 CT ABDOMEN/PELVIS WO Normal [facility] ED MED ADMINISTRATION DETAIL on 04-03-2025 ED MED ADMINISTRATION DETAIL Normal [facility] ED NURSES CLINICAL NOTEon ED NURSES CLINICAL NOTE Normal [facility] ED ORDER SHEET (CPOE ONLY)on 04-03-2025 ED ORDER SHEET (CPOE ONLY) Normal [facility] ED PHYSICIAN CLINICAL REPORT on 04-03-2025 ED PHYSICIAN CLINICAL REPORT Normal [facility] ED SUPER BILLon 04-03-2025 ED SUPER BILL Normal [facility] ED VISIT SUMMARYon ED VISIT SUMMARY Normal [facility] ED VITALS FLOW SHEETon 04-03 ED VITALS FLOW SHEET Normal [facility] LACTATEon 04-03-2025 Lactate [Moles/Vol] 0.7 mmol/L Normal 0.4 - 2.0 [facility] Comment on above: Performed By: #### 2 37596 ####[facility],[address] [place], [place] [address] LIPASEon 04-03-2025 Lipase [Catalytic activity/Vol] 36.0 U/L Normal 15.0 - 78.0 [facility] Comment on above: Result Comment: *PLE ASE NOTE THAT RANGES FOR LIPASE HAVE CHANGED OF 10/31/23 DUE TO AN ASSAYUPDATE BY THE HOTEL DESK CLERK.THE NEW ASSAY RANGE IS 6-250 U/L, WITH A REFERENCERANGE OF 16-77 U/L. Performed By: #### 2 31724 ####[facility],[address] [place], [place] [address] URINALYSISon 04-03-2025 Bilirubin Ql (U) Negative Normal NORMAL: NEGATIVE [facility] Comment on above: Performed By: #### 2 63853 ####[facility],[address] [place] [address] Clarity (U) clear Normal NORMAL: CLEAR [facility] Comment on above: Performed By: #### 2 00595 ####[facility],[address] [place], [place] [address] Color (U) yellow Normal NORMAL: YELLOW [facility] Comment on above: Performed By: #### 2 02283 ####[facility],[address] [place] [address] 14709 Glucose Ql (U) NORM Normal NORMAL: NORMAL [facility] Comment on above: Performed By: #### 2 42683 ####[facility],[address] [place] [address] 88146 Hemoglobin Ql (U) Negative Normal NORMAL: NEGATIVE [facility] Comment on above: Performed By: #### 2 73972 ####[facility],[address] [place] [address] 93032 Ketone Negative Normal NORMAL: NEGATIVE [facility] Comment on above: Performed By: #### 2 81802 ####[facility],[address] [place] [address] 04425 Leukocytes Negative Normal NORMAL: NEGATIVE [facility] Comment on above: Performed By: #### 2 19683 ####[facility] [place] [address] Nitrite Ql (U) Negative Normal NORMAL: NEGATIVE [facility] Comment on above: Performed By: #### 2 69172 ####[facility],[address] [place] [address] pH (U) 7 [pH] Normal NORMAL: 5.0-8.0 [facility] Comment on above: Performed By: #### 2 80026 ####[place] [address] Protein Ql (U) Negative Normal NORMAL: NEGATIVE [facility] Comment on above: Performed By: #### 2 82962 ####[place] [address] Sp [place] 1.010 Normal NORMAL: 1.010-1.030 [facility] Comment on above: Performed By: #### 2 60209 ####[place] [address] Specimen Type R Normal [facility] Comment on above: Performed By: #### 2 72889 ####[place] [address] Urinalysis dipstick W Reflex Microscopic panel (U) NOT INDICATED Normal [facility] Comment on above: Performed By: #### 2 73295 ####[place] [address] Urobilinog NORM Normal NORMAL: NORMAL [facility] Comment on above: Performed By: #### 2 04148 ####[place] [address] CBC + DIFFon 04-01-2025 Baso # 0.05 x10EE3/UL Normal 0.00 - 0.10 [facility] Comment on above: Performed By: #### 2 34800 ####[place] [address] Basophils/100 WBC (Bld) 0.5 % Normal 0.0 - 2.0 [facility] Comment on above: Performed By: #### 2 57588 ####[place] [address] CBC + DIFF Normal [facility] Comment on above: Result Comment: CBC- COMPLETE BLOOD COUNT Performed By: #### 2 92015 ####[facility],[address] [place] [address] EO # 0.24 x10EE3/UL Normal 0.00 - 0.50 [facility] Comment on above: Performed By: #### 2 23577 ####[place] [address] Eosinophils/100 WBC (Bld) 2.1 % Normal 0.0 - 7.0 [facility] Comment on above: Performed By: #### 2 55910 ####[place] [address] Erythrocyte distribution width (RBC) [Ratio] 13.9 % Normal 12.0 - 15.6 [facility] Comment on above: Performed By: #### 2 14240 ####[place] [address] Hematocrit (Bld) [Volume fraction] 40.5 % Normal 34.0 - 46.0 [facility] Comment on above: Performed By: #### 2 97050 ####[place] [address] Hemoglobin (Bld) [Mass/Vol] 14.3 g/dL Normal 12.0 - 16.0 [facility] Comment on above: Performed By: #### 2 17652 ####[place] [address] Lymph # 2.89 x10EE3/UL High 0.80 - 2.80 [facility] Comment on above: Performed By: #### 2 35064 ####[facility],[address] [place] [address] Lymphocytes/100 WBC (Bld) 25.5 % Normal 20.0 - 45.0 [facility] Comment on above: Performed By: #### 2 96082 ####[facility],[address] [place] [address] MANUAL DIFF N/A Normal [facility] Comment on above: Performed By: #### 2 13310 ####[facility],[address] [place] [address] MCH (RBC) [Entitic mass] 34 pg High 27 - 33 [facility] Comment on above: Performed By: #### 2 46318 ####[facility],[address] [place] [address] MCHC 35 X10 3 Normal 32 - 36 [facility] Comment on above: Performed By: #### 2 47679 ####[facility],[address] [place] [address] MCV (RBC) [Entitic vol] 97 fL Normal 80 - 99 [facility] Comment on above: Performed By: #### 2 31196 ####[facility],[address] [place] [address] [place] # 0.95 x10EE3/UL Normal 0.20 - 1.00 [facility] Comment on above: Performed By: #### 2 76236 ####[facility],[address] [place] [address] MONOS % 8.4 % Normal 0.0 - 10.0 [facility] Comment on above: Performed By: #### 2 06224 ####[facility],[address] [place] [address] Morphology Efra (Bld) [Interp] N/A Normal [facility] Comment on above: Performed By: #### 2 84412 ####[facility],[address],[place] [address] Neut # 7.19 x10EE3/UL High 1.50 - 7.10 [facility] Comment on above: Performed By: #### 2 48538 ####[facility],[address] [place] [address] 31812 Neutrophils/100 WBC (Bld) 63.5 % Normal 46.0 - 76.0 [facility] Comment on above: Performed By: #### 2 49134 ####[facility],[address] [place] [address] 92354 PLATELET 406 x10EE3/UL Normal 150 - 450 [facility] Comment on above: Performed By: #### 2 57574 ####[facility],[address] [place] [address] 72386 Platelet mean volume (Bld) [Entitic vol] 7.2 fL Normal 6.6 - 10.5 [facility] Comment on above: Result Comment: AUTO MATED DIFFERENTIAL Performed By: #### 2 01636 ####[facility],[address] [place] [address] 88784 RBC 4.20 x 10EE6/UL Normal 4.10 - 5.30 [facility] Comment on above: Performed By: #### 2 77832 ####[facility],[address] [place] [address] 54709 WBC 11.3 x 10EE3/UL High 4.5 - 10.8 [facility] Comment on above: Performed By: #### 2 31157 ####[facility],[address] [place] [address] 84388 CMP with eGFRon 04-01-2025 AGE 34 years Normal [facility] Comment on above: Performed By: #### 2 00488 ####[facility],[address] [place] [address] 40192 Albumin [Mass/Vol] 3.6 g/dL Normal 3.4 - 5.0 [facility] Comment on above: Performed By: #### 2 81532 ####[facility],[address] [place] [address] 02384 Albumin/Globulin [Mass ratio] 1.1 {ratio} Normal 0.9 - 1.6 [facility] Comment on above: Performed By: #### 2 71170 ####[facility],[address] [place] [address] 80436 ALK PHOS 79 U/L Normal 46 - 116 [facility] Comment on above: Performed By: #### 2 66456 ####[facility],[address] [place] [address] 19453 ALT [Catalytic activity/Vol] 16 U/L Normal 16 - 63 [facility] Comment on above: Performed By: #### 2 28305 ####[facility],[address] [place] [address] 57621 Anion gap [Moles/Vol] 14 mmol/L Normal 10 - 20 [facility] Comment on above: Performed By: #### 2 51839 ####[facility],[address] [place] [address] 90208 AST [Catalytic activity/Vol] 16 U/L Normal 13 - 39 [facility] Comment on above: Performed By: #### 2 57750 ####[facility],[address] [place] [address] 42484 B/C RATIO 11 ratio Normal 0 - 30 [facility] Comment on above: Performed By: #### 2 34570 ####[facility],[address] [place] [address] 51581 Bilirubin [Mass/Vol] 0.3 mg/dL Normal 0.2 - 1.0 [facility] Comment on above: Performed By: #### 2 71090 ####[facility],[address] [place] [address] 65787 Calcium [Mass/Vol] 8.9 mg/dL Normal 8.5 - 10.1 [facility] Comment on above: Performed By: #### 2 80858 ####[facility],[address] [place] [address] 97276 Chloride [Moles/Vol] 105 mmol/L Normal 98 - 107 [facility] Comment on above: Performed By: #### 2 77101 ####[facility],[address] [place] [address] 37161 CMP with eGFR Normal [facility] Comment on above: Result Comment: COMP REHENSIVE METABOLIC PANEL Performed By: #### 2 51759 ####[facility],[address] [place] [address] 75034 CO2 [Moles/Vol] 26.8 mmol/L Normal 21.0 - 32.0 [facility] Comment on above: Performed By: #### 2 06390 ####[facility],[address] [place] [address] 18946 Creatinine [Mass/Vol] 1.04 mg/dL High 0.55 - 1.02 [facility] Comment on above: Performed By: #### 2 30148 ####[facility],[address] [place] [address] 32464 eGFR 60 ML/MINUTE Normal 60 - 999 [facility] Comment on above: Performed By: #### 2 77743 ####[facility],[address] [place] [address] 93615 GFR/1.73 sq M.predicted among non-blacks MDRD (S/P/Bld) [Vol rate/Area] mL/min/{1.73_m2} Normal 60 - 999 [facility] Comment on above: Result Comment: ACCO RDING TO THE NATIONAL KIDNEY DISEASE EDUCATION PROGRAM(NKDE), A NORMAL eGFRIS A VALUE GREATER THAN OR EQUAL TO 60 ML/MIN/1.73 SQ METERS.CHRONIC KIDNEY DISEASE: <60mL/MIN/1.73 SQ METERSKIDNEY FAILURE: <15mL/MIN/1.73 SQ METERSTHIS TEST SHOULD ONLY BE USED FOR PATIENTS 18 YEARS OF AGE AND OLDER. Performed By: #### 2 72999 ####[facility],[address] [place] [address] 83685 Globulin (S) [Mass/Vol] 3.2 g/dL Normal 1.5 - 3.8 [facility] Comment on above: Performed By: #### 2 05380 ####[facility],[address] [place] [address] 16967 Glucose [Mass/Vol] 91 mg/dL Normal 74 - 106 [facility] Comment on above: Performed By: #### 2 41035 ####[facility],[address] [place] [address] 09680 Potassium [Moles/Vol] 4.1 mmol/L Normal 3.5 - 5.1 [facility] Comment on above: Performed By: #### 2 43744 ####[facility],[address] [place] [address] 21523 Protein [Mass/Vol] 6.8 g/dL Normal 6.4 - 8.2 [facility] Comment on above: Performed By: #### 2 92593 ####[facility],[address] [place] [address] 08407 Sodium [Moles/Vol] 142 mmol/L Normal 136 - 145 [facility] Comment on above: Performed By: #### 2 51615 ####[facility],[address] [place] [address] 97947 Urea nitrogen [Mass/Vol] 11 mg/dL Normal 7 - 18 [facility] Comment on above: Performed By: #### 2 32517 ####[facility],[address] [place] [address] 61441 CORONAVIRUS (SARS) ANTIGEN T ESTon 04-01-2025 EXTERNAL QC DONE? YES Normal [facility] Comment on above: Performed By: #### 2 70525 ####[facility],[address] [place] [address] 69991 INTERNAL CONTROL PASS Normal [facility] Comment on above: Performed By: #### 2 39477 ####[facility],[address] [place] [address] 12271 SARS ANTIGEN Negative Normal NORMAL: NEGATIVE [facility] Comment on above: Performed By: #### 2 82818 ####[facility],[address] [place] [address] 81326 SEND TO IC? NO Normal [facility] Comment on above: Result Comment: SARS -CoV-2THIS TEST IS BEING USED UNDER THE FDA EUA PROCEDURE. THIS ASSAY HAS BEENVALIDATED AT [facility] FOR USE WITH NASAL AND NASOPHARYNGEAL SWABSPECIMENS.INTERPRETIVE [...] BY HEALTHCARE PROVIDERS IN CONSULTATION WITH PUBLIC [facility]. Performed By: #### 2 37728 ####[facility],[address] [place] [address] ED MED ADMINISTRATION DETAIL on 04-01-2025 ED MED ADMINISTRATION DETAIL Normal [facility] ED NURSES CLINICAL NOTEon ED NURSES CLINICAL NOTE Normal [facility] ED ORDER SHEET (CPOE ONLY)on 04-01-2025 ED ORDER SHEET (CPOE ONLY) Normal [facility] ED PHYSICIAN CLINICAL REPORT on 04-01-2025 ED PHYSICIAN CLINICAL REPORT Normal [facility] ED SUPER BILLon 04-01-2025 ED SUPER BILL Normal [facility] ED VISIT SUMMARYon ED VISIT SUMMARY Normal [facility] ED VITALS FLOW SHEETon 04-01 ED VITALS FLOW SHEET Normal [facility] INFLUENZA VIRUS RAPID A/Bon 04-01-2025 INFLUENZA VIRUS RAPID A/B Normal [facility] Comment on above: Performed By: #### 2 80754 ####[facility],[address] [place] [address] LACTATEon 04-01-2025 Lactate [Moles/Vol] 1.7 mmol/L Normal 0.4 - 2.0 [facility] Comment on above: Performed By: #### 2 31332 ####[facility],[address] [place] [address] LIPASEon 04-01-2025 Lipase [Catalytic activity/Vol] 169.0 U/L High 15.0 - 78.0 [facility] Comment on above: Result Comment: *PLE ASE NOTE THAT RANGES FOR LIPASE HAVE CHANGED OF 10/31/23 DUE TO AN ASSAYUPDATE BY THE HOTEL DESK CLERK.THE NEW ASSAY RANGE IS 6-250 U/L, WITH A REFERENCERANGE OF 16-77 U/L. Performed By: #### 2 65380 ####[facility],[address] [place] [address] SERUM QUALon 04-01 EXTERNAL QC DONE? YES Normal [facility] Comment on above: Performed By: #### 2 60052 ####[facility],[address] [place] [address] 99522 INTERNAL QC PASS Normal [facility] Comment on above: Performed By: #### 2 33953 ####[facility],[address] [place] [address],[facility] 44352 SER Negative Normal NEGATIVE [facility] Comment on above: Performed By: #### 2 69216 ####[facility],[address] [place] [address] 48009 TROPONINon 04-01-2025 HS TROPONIN 4.1 pg/mL Normal 0.0 - 51.4 [facility] Comment on above: Performed By: #### 2 41195 ####[facility],[address] [place] [address] 52510 URINALYSISon 04-01-2025 Amorphous NONE Normal [facility] Comment on above: Performed By: #### 2 64727 ####[facility],[address] [place] [address] 11942 Bacteria NONE Normal [facility] Comment on above: Performed By: #### 2 85921 ####[facility],[address] [place] [address] 56569 Bilirubin Ql (U) Negative Normal NORMAL: NEGATIVE [facility] Comment on above: Performed By: #### 2 60829 ####[facility],[address] [place] [address] 07534 Casts NONE Normal [facility] Comment on above: Performed By: #### 2 65364 ####[facility],[address] [place] [address] 80982 Clarity (U) clear Normal NORMAL: CLEAR [facility] Comment on above: Performed By: #### 2 34092 ####[facility],[address] [place] [address] 24829 Color (U) yellow Normal NORMAL: YELLOW [facility] Comment on above: Performed By: #### 2 37457 ####[facility],[address] [place] [address] 61954 Crystals LM Nom (Urine sed) NONE Normal [facility] Comment on above: Performed By: #### 2 61704 ####[facility],[address] [place] [address] 36590 Epi Cells OCC Normal [facility] Comment on above: Performed By: #### 2 89545 ####[facility],[address] [place] [address] 33016 Glucose Ql (U) NORM Normal NORMAL: NORMAL [facility] Comment on above: Performed By: #### 2 14671 ####[facility],[address] [place] [address] 86981 Hemoglobin Ql (U) 10 Abnormal NORMAL: NEGATIVE [facility] Comment on above: Performed By: #### 2 13276 ####[facility],[address] [place] [address] 83639 Ketone Negative Normal NORMAL: NEGATIVE [facility] Comment on above: Performed By: #### 2 62964 ####[facility],[address] [place] [address] 83331 Leukocytes 25 Abnormal NORMAL: NEGATIVE [facility] Comment on above: Performed By: #### 2 82548 ####[facility],[address] [place] [address] 96596 Mucous NONE Normal [facility] Comment on above: Performed By: #### 2 50078 ####[facility],[address] [place] [address] 73277 Nitrite Ql (U) Negative Normal NORMAL: NEGATIVE [facility] Comment on above: Performed By: #### 2 23497 ####[facility],[address] [place] [address] 00736 pH (U) 6.5 [pH] Normal NORMAL: 5.0-8.0 [facility] Comment on above: Performed By: #### 2 32354 ####[facility],[address] [place] [address] Protein Ql (U) 15 Abnormal NORMAL: NEGATIVE [facility] Comment on above: Performed By: #### 2 60389 ####[facility],[address] [place], [place] [address] Rbc NONE Normal 0-3/hpf [facility] Comment on above: Performed By: #### 2 59311 ####[facility],[address] [place] [address] Sp [place] 1.015 Normal NORMAL: 1.010-1.030 [facility] Comment on above: Performed By: #### 2 50854 ####[facility],[address] [place] [address] Specimen Type R Normal [facility] Comment on above: Performed By: #### 2 07864 ####[facility],[address] [place] [address] Urinalysis dipstick W Reflex Microscopic panel (U) SEE BELOW Normal [facility] Comment on above: Result Comment: MICR OSCOPIC Performed By: #### 2 33179 ####[facility],[address] [place] [address] Urobilinog NORM Normal NORMAL: NORMAL [facility] Comment on above: Performed By: #### 2 94234 ####[facility],[address] [place] [address] Wbc 1-5 Normal 0-5/hpf [facility] Comment on above: Performed By: #### 2 05220 ####[facility],[address] [place] [address] Yeast NONE Normal [facility] Comment on above: Performed By: #### 2 21806 ####[facility],[address] [place] [address] URINE CULTURE [CCL]on 2024 Bacteria identified Cx Nom (U) Normal [facility] Comment on above: Performed By: #### 2 26652 ####[facility],[address] [place] [address] 04976 C-REACTIVE PROTEINon 025 CRP 0.15 mg/dl Normal 0.00 - 0.90 [facility] Comment on above: Performed By: #### 2 58881 ####[facility],[address] [place] [address] 65272 CBC + DIFFon 03-23-2025 Baso # 0.07 x10EE3/UL Normal 0.00 - 0.10 [facility] Comment on above: Performed By: #### 2 31741 ####[facility],[address] [place] [address] 55852 Basophils/100 WBC (Bld) 0.5 % Normal 0.0 - 2.0 [facility] Comment on above: Performed By: #### 2 41305 ####[facility],[address] [place] [address] 06939 CBC + DIFF Normal [facility] Comment on above: Result Comment: CBC- COMPLETE BLOOD COUNT Performed By: #### 2 72173 ####[facility],[address] [place] [address] 12670 CELL COUNT 100 Normal [facility] Comment on above: Performed By: #### 2 69936 ####[facility],[address] [place] [address] 10965 EO # 0.39 x10EE3/UL Normal 0.00 - 0.50 [facility] Comment on above: Performed By: #### 2 85832 ####[facility],[address] [place] [address] 11309 Eosinophils/100 WBC (Bld) 2.6 % Normal 0.0 - 7.0 [facility] Comment on above: Performed By: #### 2 49341 ####[facility],[address] [place] [address] 17478 Erythrocyte distribution width (RBC) [Ratio] 13.8 % Normal 12.0 - 15.6 [facility] Comment on above: Performed By: #### 2 83573 ####[facility],[address] [place] [address] Hematocrit (Bld) [Volume fraction] 44.3 % Normal 34.0 - 46.0 [facility] Comment on above: Performed By: #### 2 97969 ####[facility],[address] [place] [address] Hemoglobin (Bld) [Mass/Vol] 15.4 g/dL Normal 12.0 - 16.0 [facility] Comment on above: Performed By: #### 2 40917 ####[facility],[address] [place] [address] Lymph # 5.14 x10EE3/UL High 0.80 - 2.80 [facility] Comment on above: Performed By: #### 2 26966 ####[facility],[address] [place] [address] 60245 Lymphocytes/100 WBC (Bld) 34.4 % Normal 20.0 - 45.0 [facility] Comment on above: Performed By: #### 2 11938 ####[facility],[address] [place], [place] [address] Lymphocytes/100 WBC (Bld) 42 % Normal 20 - 45 [facility] Comment on above: Performed By: #### 2 93202 ####[facility],[address] [place] [address] 17355 MANUAL DIFF SEE BELOW Normal [facility] Comment on above: Performed By: #### 2 06046 ####[address] [address] MCH (RBC) [Entitic mass] 34 pg High 27 - 33 [facility] Comment on above: Performed By: #### 2 07183 ####[address] [address] MCHC 35 X10 3 Normal 32 - 36 [facility] Comment on above: Performed By: #### 2 01375 ####[facility],[address] [place] [address] MCV (RBC) [Entitic vol] 97 fL Normal 80 - 99 [facility] Comment on above: Performed By: #### 2 53643 ####[facility],[address] [place] [address] [place] # 1.37 x10EE3/UL High 0.20 - 1.00 [facility] Comment on above: Performed By: #### 2 19011 ####[facility],[address] [place] [address] MONOS 8 % Normal 0 - 10 [facility] Comment on above: Performed By: #### 2 76191 ####[facility],[address] [place] [address] MONOS % 9.2 % Normal 0.0 - 10.0 [facility] Comment on above: Performed By: #### 2 70709 ####[facility],[address] [place] [address] Morphology Efra (Bld) [Interp] SEE BELOW Normal [facility] Comment on above: Performed By: #### 2 52860 ####[facility],[address] [place] [address] Neut # 7.98 x10EE3/UL High 1.50 - 7.10 [facility] Comment on above: Performed By: #### 2 53533 ####[place] [address] Neutrophils/100 WBC (Bld) 53.4 % Normal 46.0 - 76.0 [facility] Comment on above: Performed By: #### 2 24219 ####[place] [address] PLATELET 512 x10EE3/UL High 150 - 450 [facility] Comment on above: Performed By: #### 2 73064 ####[facility],[address] [place] [address] 87568 Platelet mean volume (Bld) [Entitic vol] 7.8 fL Normal 6.6 - 10.5 [facility] Comment on above: Result Comment: AUTO MATED DIFFERENTIAL Performed By: #### 2 05152 ####[facility],[address] [place], [place] [address] PLT EST INCREASED Normal [facility] Comment on above: Performed By: #### 2 87992 ####[facility],[address] [place] [address] RBC 4.59 x 10EE6/UL Normal 4.10 - 5.30 [facility] Comment on above: Performed By: #### 2 69395 ####[facility],[address] [place] [address] SEGS 50 % Normal 46 - 76 [facility] Comment on above: Performed By: #### 2 96651 ####[facility],[address] [place] [address] 56190 WBC 15.0 x 10EE3/UL High 4.5 - 10.8 [facility] Comment on above: Performed By: #### 2 86202 ####[facility],[address] [place] [address] Other RBC MORPH NORMAL Normal [facility] Comment on above: Performed By: #### 2 69122 ####[facility],[address] [place] [address] 14248 CMP with eGFRon 03-23-2025 AGE 34 years Normal [facility] Comment on above: Performed By: #### 2 11748 ####[facility],[address] [place], [place] [address] Albumin [Mass/Vol] 4.0 g/dL Normal 3.4 - 5.0 [facility] Comment on above: Performed By: #### 2 97408 ####[facility],[address] [place] [address] 71736 Albumin/Globulin [Mass ratio] 1.1 {ratio} Normal 0.9 - 1.6 [facility] Comment on above: Performed By: #### 2 00509 ####[facility],[address] [place] [address] 63865 ALK PHOS 88 U/L Normal 46 - 116 [facility] Comment on above: Performed By: #### 2 58899 ####[facility],[address] [place] [address] 58130 ALT [Catalytic activity/Vol] 14 U/L Low 16 - 63 [facility] Comment on above: Performed By: #### 2 99760 ####[facility],[address] [place] [address] 16683 Anion gap [Moles/Vol] 14 mmol/L Normal 10 - 20 [facility] Comment on above: Performed By: #### 2 23147 ####[facility],[address] [place] [address] 36853 AST [Catalytic activity/Vol] 17 U/L Normal 13 - 39 [facility] Comment on above: Performed By: #### 2 33651 ####[facility],[address] [place] [address] 66975 B/C RATIO 8 ratio Normal 0 - 30 [facility] Comment on above: Performed By: #### 2 76704 ####[facility],[address] [place] [address] 70832 Bilirubin [Mass/Vol] 0.4 mg/dL Normal 0.2 - 1.0 [facility] Comment on above: Performed By: #### 2 34025 ####[facility],[address] [place] [address] 17941 Calcium [Mass/Vol] 9.3 mg/dL Normal 8.5 - 10.1 [facility] Comment on above: Performed By: #### 2 45304 ####[facility],[address] [place] [address] 62086 Chloride [Moles/Vol] 103 mmol/L Normal 98 - 107 [facility] Comment on above: Performed By: #### 2 35509 ####[facility],[address] [place] [address] 83821 CMP with eGFR Normal [facility] Comment on above: Result Comment: COMP REHENSIVE METABOLIC PANEL Performed By: #### 2 62552 ####[facility],[address] [place] [address] 61518 CO2 [Moles/Vol] 25.1 mmol/L Normal 21.0 - 32.0 [facility] Comment on above: Performed By: #### 2 33754 ####[facility],[address] [place] [address] 07822 Creatinine [Mass/Vol] 1.06 mg/dL High 0.55 - 1.02 [facility] Comment on above: Performed By: #### 2 63084 ####[facility],[address] [place] [address] 11101 eGFR 59 ML/MINUTE Low 60 - 999 [facility] Comment on above: Performed By: #### 2 50822 ####[facility],[address] [place] [address] 25862 GFR/1.73 sq M.predicted among non-blacks MDRD (S/P/Bld) [Vol rate/Area] mL/min/{1.73_m2} Normal 60 - 999 [facility] Comment on above: Result Comment: ACCO RDING TO THE NATIONAL KIDNEY DISEASE EDUCATION PROGRAM(NKDE), A NORMAL eGFRIS A VALUE GREATER THAN OR EQUAL TO 60 ML/MIN/1.73 SQ METERS.CHRONIC KIDNEY DISEASE: <60mL/MIN/1.73 SQ METERSKIDNEY FAILURE: <15mL/MIN/1.73 SQ METERSTHIS TEST SHOULD ONLY BE USED FOR PATIENTS 18 YEARS OF AGE AND OLDER. Performed By: #### 2 21148 ####[facility],[address] [place] [address] 65136 Globulin (S) [Mass/Vol] 3.6 g/dL Normal 1.5 - 3.8 [facility] Comment on above: Performed By: #### 2 46068 ####[facility],[address] [place] [address] 76616 Glucose [Mass/Vol] 106 mg/dL Normal 74 - 106 [facility] Comment on above: Performed By: #### 2 66033 ####[facility],[address] [place] [address] 55777 Potassium [Moles/Vol] 3.3 mmol/L Low 3.5 - 5.1 [facility] Comment on above: Performed By: #### 2 00774 ####[facility],[address] [place] [address] 74825 Protein [Mass/Vol] 7.6 g/dL Normal 6.4 - 8.2 [facility] Comment on above: Performed By: #### 2 65586 ####[facility],[address] [place] [address] 12263 Sodium [Moles/Vol] 139 mmol/L Normal 136 - 145 [facility] Comment on above: Performed By: #### 2 37307 ####[facility],[address] [place] [address] 03734 Urea nitrogen [Mass/Vol] 8 mg/dL Normal 7 - 18 [facility] Comment on above: Performed By: #### 2 07477 ####[facility],[address] [place] [address] 14508 ED MED ADMINISTRATION DETAIL on 03-23-2025 ED MED ADMINISTRATION DETAIL Normal [facility] ED NURSES CLINICAL NOTEon ED NURSES CLINICAL NOTE Normal [facility] ED ORDER SHEET (CPOE ONLY)on 03-23-2025 ED ORDER SHEET (CPOE ONLY) Normal [facility] ED PHYSICIAN CLINICAL REPORT on 03-23-2025 ED PHYSICIAN CLINICAL REPORT Normal [facility] ED SUPER BILLon 03-23-2025 ED SUPER BILL Normal [facility] ED VISIT SUMMARYon ED VISIT SUMMARY Normal [facility] ED VITALS FLOW SHEETon 03-23 ED VITALS FLOW SHEET Normal [facility] URINALYSISon 03-23-2025 Amorphous NONE Normal [facility] Comment on above: Performed By: #### 2 35801 ####[facility],[address] [place] [address] 30702 Bacteria 3+ Normal [facility] Comment on above: Performed By: #### 2 08290 ####[facility],[address] [place] [address] 79714 Bilirubin Ql (U) Negative Normal NORMAL: NEGATIVE [facility] Comment on above: Performed By: #### 2 50501 ####[facility],[address] [place] [address] 43346 Casts NONE Normal [facility] Comment on above: Performed By: #### 2 81231 ####[facility],[address] [place] [address] 70860 Clarity (U) sl.cloudy Normal NORMAL: CLEAR [facility] Comment on above: Performed By: #### 2 13731 ####[facility],[address] [place] [address] 89521 Color (U) yellow Normal NORMAL: YELLOW [facility] Comment on above: Performed By: #### 2 97342 ####[facility],[address] [place] [address] 49863 Crystals LM Nom (Urine sed) SEE BELOW Normal [facility] Comment on above: Performed By: #### 2 68308 ####[facility],[address] [place] [address] 17065 Epi Cells NONE Normal [facility] Comment on above: Performed By: #### 2 20979 ####[facility],[address] [place] [address] 32955 Glucose Ql (U) NORM Normal NORMAL: NORMAL [facility] Comment on above: Performed By: #### 2 51807 ####[facility],[address] [place] [address] 91188 Hemoglobin Ql (U) 250 Abnormal NORMAL: NEGATIVE [facility] Comment on above: Performed By: #### 2 50624 ####[facility],[address] [place] [address] 21797 Ketone Negative Normal NORMAL: NEGATIVE [facility] Comment on above: Performed By: #### 2 56780 ####[facility],[address] [place] [address] 57151 Leukocytes 500 Abnormal NORMAL: NEGATIVE [facility] Comment on above: Performed By: #### 2 79217 ####[facility],[address] [place] [address] 19456 Mucous NONE Normal [facility] Comment on above: Performed By: #### 2 75954 ####[facility],[address] [place] [address] 71479 Nitrite Ql (U) Positive Normal NORMAL: NEGATIVE [facility] Comment on above: Performed By: #### 2 80243 ####[facility],[address] [place] [address] 42169 pH (U) 8 [pH] Normal NORMAL: 5.0-8.0 [facility] Comment on above: Performed By: #### 2 13474 ####[facility],[address] [place] [address] 78380 Protein Ql (U) 500 Abnormal NORMAL: NEGATIVE [facility] Comment on above: Performed By: #### 2 36551 ####[facility],[address] [place] [address] 80713 Rbc 15-20 Normal 0-3/hpf [facility] Comment on above: Performed By: #### 2 19912 ####[facility],[address] [place] [address] Sp [place] 1.015 Normal NORMAL: 1.010-1.030 [facility] Comment on above: Performed By: #### 2 24231 ####[facility],[address] [place] [address] Specimen Type R Normal [facility] Comment on above: Performed By: #### 2 82028 ####[facility],[address] [place] [address] Triple Phos 1+ Normal NORMAL: NONE [facility] Comment on above: Performed By: #### 2 23274 ####[facility],[address] [place] [address] Urinalysis dipstick W Reflex Microscopic panel (U) SEE BELOW Normal [facility] Comment on above: Result Comment: MICR OSCOPIC Performed By: #### 2 58913 ####[facility],[address] [place] [address] Urobilinog NORM Normal NORMAL: NORMAL [facility] Comment on above: Performed By: #### 2 67947 ####[facility],[address] [place] [address] Wbc 26-50 Normal 0-5/hpf [facility] Comment on above: Performed By: #### 2 27224 ####[facility],[address] [place] [address] Yeast NONE Normal [facility] Comment on above: Performed By: #### 2 87818 ####[place] [address] .Auto Diffon 03-15-2025 Basophil, Absolute 0.1 10 3/mcL Normal 0.0-0.3 [facility] Comment on above: Performed By: #### G FR, ANEU, CMP, CBC, ADIFF, MDW, LAC ####[address] [address] Basophils/100 WBC (Bld) 0.7 % Normal 0.0-2.5 [facility] Comment on above: Performed By: #### G FR, ANEU, CMP, CBC, ADIFF, MDW, LAC ####[address] [address] Eosinophil, Absolute 0.2 10 3/mcL Normal 0.0-0.7 [facility] Comment on above: Performed By: #### G FR, ANEU, CMP, CBC, ADIFF, MDW, LAC ####[address] [address] Eosinophils/100 WBC (Bld) 2.0 % Normal 0.0-6.0 [facility] Comment on above: Performed By: #### G FR, ANEU, CMP, CBC, ADIFF, MDW, LAC ####[address] [address] Lymphocyte, Absolute 1.9 10 3/mcL Normal 0.9-4.3 [facility] Comment on above: Performed By: #### G FR, ANEU, CMP, CBC, ADIFF, MDW, LAC ####[address] [address] Lymphocytes/100 WBC (Bld) 22.2 % Normal 20.0-40.0 [facility] Comment on above: Performed By: #### G FR, ANEU, CMP, CBC, ADIFF, MDW, LAC ####[address] [address] Monocyte, Absolute 1.0 10 3/mcL Normal 0.1-1.4 [facility] Comment on above: Performed By: #### G FR, ANEU, CMP, CBC, ADIFF, MDW, LAC ####[address] [address] Monocytes/100 WBC (Bld) 11.4 % Normal 2.0-13.0 [facility] Comment on above: Performed By: #### G FR, ANEU, CMP, CBC, ADIFF, MDW, LAC ####[address] [address] Neutrophils/100 WBC (Bld) 63.7 % Normal 50.0-75.0 [facility] Comment on above: Performed By: #### G FR, ANEU, CMP, CBC, YOUNG SIDDIQUI, LAC ####[place] [address] .GFRon 03-15-2025 Estimated Glomerular Filtration Rate 98 ml/min/1.73sqm Normal [facility] Comment on above: Result Comment: [...] #### G FR, ANEU, CMP, CBC, CHEN, W, LAC ####[place] [address] .MDWon 03-15-2025 Monocyte Distribution Width 19.00 Normal 0.00-20.00 [facility] Comment on above: Result Comment: For ED adult patients suspected of sepsis, MDW<=20.0 does not rule out sepsis or risk of sepsis Performed By: #### G FR, ANEU, CMP, CBC, YOUNG SIDDIQUI, LAC ####[place] [address] .NEUABSon 03-15-2025 Neutrophil, Absolute 5.5 10 3/mcL Normal 2.3-8.1 [facility] Comment on above: Performed By: #### G FR, ANEU, CMP, CBC, CHEN, W, LAC ####[place] [address] CBCon 03-15-2025 Erythrocyte distribution width (RBC) [Ratio] 14.7 % Normal 11.5-15.5 [facility] Comment on above: Performed By: #### G FR, ANEU, CMP, CBC, ADIFF, MDW, LAC ####[place] [address] Hematocrit (Bld) [Volume fraction] 38.6 % Normal 34.0-46.0 [facility] Comment on above: Performed By: #### G FR, ANEU, CMP, CBC, ADIFF, MDW, LAC ####[place] [address] Hgb 12.6 G/dL Normal 12.0-16.0 [facility] Comment on above: Performed By: #### G FR, ANEU, CMP, CBC, ADIFF, MDW, LAC ####[place] [address] MCH (RBC) [Entitic mass] 31.4 pg Normal 27.0-33.0 [facility] Comment on above: Performed By: #### G FR, ANEU, CMP, CBC, ADIFF, MDW, LAC ####[place] [address] MCHC 32.5 G/dL Normal 32.0-36.0 [facility] Comment on above: Performed By: #### G FR, ANEU, CMP, CBC, ADIFF, MDW, LAC ####[place] [address] MCV (RBC) [Entitic vol] 96.7 fL Normal 80.0-99.0 [facility] Comment on above: Performed By: #### G FR, ANEU, CMP, CBC, ADIFF, MDW, LAC ####[place] [address] Platelet 294 10 3/mcL Normal 150-450 [facility] Comment on above: Performed By: #### G FR, ANEU, CMP, CBC, ADIFF, MDW, LAC ####[place] [address] Platelet mean volume (Bld) [Entitic vol] 7.3 fL Normal 6.6-10.5 [facility] Comment on above: Performed By: #### G FR, ANEU, CMP, CBC, ADIFF, MDW, LAC ####[address] [address] RBC 4.00 10 6/mcL Low 4.10-5.30 [facility] Comment on above: Performed By: #### G FR, ANEU, CMP, CBC, ADIFF, MDW, LAC ####[place] [address] WBC 8.7 10 3/mcL Normal 4.5-10.8 [facility] Comment on above: Performed By: #### G FR, ANEU, CMP, CBC, ADIFF, MDW, LAC ####[place] [address] CMPon 03-15-2025 Albumin Level 4.0 G/dL Normal 3.2-4.8 [facility] Comment on above: Performed By: #### G FR, ANEU, CMP, CBC, ADIFF, MDW, LAC ####[place] [address] Albumin/Globulin [Mass ratio] 1.2 {ratio} Normal 0.9-1.6 [facility] Comment on above: Performed By: #### G FR, ANEU, CMP, CBC, ADIFF, MDW, LAC ####[place] [address] ALP [Catalytic activity/Vol] 72 U/L Normal 38-126 [facility] Comment on above: Performed By: #### G FR, ANEU, CMP, CBC, ADIFF, MDW, LAC ####[place] [address] ALT [Catalytic activity/Vol] 9 U/L Low 10-49 [facility] Comment on above: Performed By: #### G FR, ANEU, CMP, CBC, ADIFF, MDW, LAC ####[place] [address] AST [Catalytic activity/Vol] 19 U/L Normal 8-34 [facility] Comment on above: Performed By: #### G FR, ANEU, CMP, CBC, ADIFF, MDW, LAC ####[address] [address] Bili Total 0.30 mg/dL Normal 0.20-1.20 [facility] Comment on above: Result Comment: Use of this assay is not recommended for patients undergoing treatment with eltrombopag due to the potential for falsely elevated results. Performed By: #### G FR, ANEU, CMP, CBC, ADIFF, MDW, LAC ####[place] [address] BUN/Creatinine Ratio 7.5 ratio Low 10.0-22.0 [facility] Comment on above: Performed By: #### G FR, ANEU, CMP, CBC, ADIFF, MDW, LAC ####[place] [address] Calcium [Mass/Vol] 9.7 mg/dL Normal 8.7-10.4 [facility] Comment on above: Performed By: #### G FR, ANEU, CMP, CBC, ADIFF, MDW, LAC ####[place] [address] Chloride [Moles/Vol] 107 mmol/L Normal 98-110 [facility] Comment on above: Performed By: #### G FR, ANEU, CMP, CBC, ADIFF, MDW, LAC ####[place] [address] CO2 [Moles/Vol] 28 mmol/L Normal 22-32 [facility] Comment on above: Performed By: #### G FR, ANEU, CMP, CBC, ADIFF, MDW, LAC ####[place] [address] Creatinine [Mass/Vol] 0.80 mg/dL Normal 0.50-1.20 [facility] Comment on above: Result Comment: Test ing performed on [employer] analyzer using enzymatic creatinine methodology. Performed By: #### G FR, ANEU, CMP, CBC, ADIFF, MDW, LAC ####[place] [address] Electrolyte Balance 3.0 mEq/L Low 4.0-15.0 [facility] Comment on above: Performed By: #### G FR, ANEU, CMP, CBC, CHEN, MDW, LAC ####[address] [address] Globulin 3.3 G/dL Normal 2.5-4.2 [facility] Comment on above: Performed By: #### G FR, ANEU, CMP, CBC, ADMACEY, MDW, LAC ####[address] [address] Glucose [Mass/Vol] 101 mg/dL Normal 70-110 [facility] Comment on above: Performed By: #### G FR, ANEU, CMP, CBC, ADMACEY, MDW, LAC ####[place] [id number] Potassium [Moles/Vol] 3.8 mmol/L Normal 3.5-5.0 [facility] Comment on above: Result Comment: Spec imen slightly hemolyzed. Performed By: #### G FR, ANEU, CMP, CBC, CHEN, MDW, LAC ####[place] [address] Sodium [Moles/Vol] 138 mmol/L Normal 136-145 [facility] Comment on above: Performed By: #### G FR, ANEU, CMP, CBC, CHEN, MDW, LAC ####[place] [address] Total Protein 7.3 G/dL Normal 5.7-8.2 [facility] Comment on above: Performed By: #### G FR, ANEU, CMP, CBC, CHEN, MDW, LAC ####[place] [address] Urea nitrogen [Mass/Vol] 6.0 mg/dL Low 8.0-22.0 [facility] Comment on above: Performed By: #### G FR, ANEU, CMP, CBC, CHEN, MDW, LAC ####[place] [address] CT ABD/PELVIS W/ IV CONTRAST ONLYon 03-15-2025 CT ABD/PELVIS W/ IV CONTRAST ONLY Normal [facility] LABORATORYOrdered By: SYSTEM SYSTEM on [...] above: Interpretive Data: T esting performed on [employer] analyzer using enzymatic creatinine methodology. Electrolyte Balance [...] Lactic Acid Lvl 1.3 mmol/L Normal 0.5-2.2 [facility] Comment on above: Performed By: #### G FR, ANEU, CMP, CBC, ADIFF, MDW, LAC ####[place] [address] UAon 03-15-2025 Color (U) Yellow Normal [facility] Comment on above: Performed By: #### U A, UAMIC ####[place] [address] Glucose (U) [Mass/Vol] Negative Normal Negative [facility] Comment on above: Performed By: #### U A, UAMIC ####[address] [address] Ketones Ql (U) Trace Normal Neg-Trace [facility] Comment on above: Performed By: #### U A, UAMIC ####[place] [address] UA Appear Clear Normal Clear [facility] Comment on above: Performed By: #### U A, UAMIC ####[place] [address] UA Blood Small Abnormal Neg-Trace [facility] Comment on above: Performed By: #### U A, UAMIC ####[place] [address] UA Leuk Est Trace Normal Negative [facility] Comment on above: Performed By: #### U A, UAMIC ####[place] [address] UA Nitrite Negative Normal Negative [facility] Comment on above: Performed By: #### U A, UAMIC ####[place] [address] UA pH 6.5 Normal 5.0 - 8.0 [facility] Comment on above: Performed By: #### U A, UAMIC ####[place] [address] UA Protein Trace Normal Negative [facility] Comment on above: Performed By: #### U A, UAMIC ####[place] [address] UA Spec Grav 1.020 Normal 1.006-1.029 [facility] Comment on above: Performed By: #### U A, UAMIC ####[place] [address] UA Specimen Type Clean Catch Normal [facility] Comment on above: Performed By: #### U A, UAMIC ####[place] [address] UA Urobilinogen 1.0 E.U./dL Normal 0.2-1.0 [facility] Comment on above: Performed By: #### U A, UAMIC ####[place] [address] Urobilinogen (U) [Mass/Vol] Negative Normal Neg-Trace [facility] Comment on above: Performed By: #### U A, UAMIC ####[place] [address] UAMICon 03-15-2025 UA Bacteria Trace Abnormal Negative [facility] Comment on above: Performed By: #### U A, UAMIC ####[place] [address] UA Mucous 4+ /hpf Normal [facility] Comment on above: Performed By: #### U A, UAMIC ####[place] [address] UA RBC 5-10 Abnormal 0-2 [facility] Comment on above: Performed By: #### U A, UAMIC ####[place] [address] UA Squam Epithelial 3-5 Normal 0-20 [facility] Comment on above: Performed By: #### U A, UAMIC ####[place] [address] UA WBC 0-2 Normal 0-5 [facility] Comment on above: Performed By: #### U A, UAMIC ####[place] [address] .Auto Diffon 03-09-2025 Basophil, Absolute 0.1 10 3/mcL Normal 0.0-0.3 [facility] Comment on above: Performed By: #### A DIFF, ANEU, GFR, CBC, LAC, LIP, CMP, MDW ####[place] [address] Basophils/100 WBC (Bld) 1.0 % Normal 0.0-2.5 [facility] Comment on above: Performed By: #### A DIFF, ANEU, GFR, CBC, LAC, LIP, CMP, MDW ####[place] [address] Eosinophil, Absolute 0.2 10 3/mcL Normal 0.0-0.7 [facility] Comment on above: Performed By: #### A DIFF, ANEU, GFR, CBC, LAC, LIP, CMP, MDW ####[place] [address] Eosinophils/100 WBC (Bld) 2.5 % Normal 0.0-6.0 [facility] Comment on above: Performed By: #### A DIFF, ANEU, GFR, CBC, LAC, LIP, CMP, MDW ####[address] [place] [address] Lymphocyte, Absolute 2.2 10 3/mcL Normal 0.9-4.3 [facility] Comment on above: Performed By: #### A DIFF, ANEU, GFR, CBC, LAC, LIP, CMP, MDW ####[address] [address] Lymphocytes/100 WBC (Bld) 24.2 % Normal 20.0-40.0 [facility] Comment on above: Performed By: #### A DIFF, ANEU, GFR, CBC, LAC, LIP, CMP, MDW ####[address] [address] Monocyte, Absolute 0.6 10 3/mcL Normal 0.1-1.4 [facility] Comment on above: Performed By: #### A DIFF, ANEU, GFR, CBC, LAC, LIP, CMP, MDW ####[address] [address] Monocytes/100 WBC (Bld) 6.8 % Normal 2.0-13.0 [facility] Comment on above: Performed By: #### A DIFF, ANEU, GFR, CBC, LAC, LIP, CMP, MDW ####[address] [address] Neutrophils/100 WBC (Bld) 65.5 % Normal 50.0-75.0 [facility] Comment on above: Performed By: #### A DIFF, ANEU, GFR, CBC, LAC, LIP, CMP, MDW ####[address] [address] .GFRon 03-09-2025 Estimated Glomerular Filtration Rate 88 ml/min/1.73sqm Normal [facility] Comment on above: Result Comment: [...] CBC, LAC, LIP, CMP, MDW ####[place] [address] .MDWon 03-09-2025 Monocyte Distribution Width 14.95 Normal 0.00-20.00 [facility] Comment on above: Result Comment: For ED adult patients suspected of sepsis, MDW<=20.0 does not rule out sepsis or risk of sepsis Performed By: #### A DIFF, ANEU, GFR, CBC, LAC, LIP, CMP, MDW ####[place] [address] .NEUABSon 03-09-2025 Neutrophil, Absolute 5.9 10 3/mcL Normal 2.3-8.1 [facility] Comment on above: Performed By: #### A DIFF, ANEU, GFR, CBC, LAC, LIP, CMP, MDW ####[place] [address] CBCon 03-09-2025 Erythrocyte distribution width (RBC) [Ratio] 14.4 % Normal 11.5-15.5 [facility] Comment on above: Performed By: #### A DIFF, ANEU, GFR, CBC, LAC, LIP, CMP, MDW ####[place] [address] Hematocrit (Bld) [Volume fraction] 43.5 % Normal 34.0-46.0 [facility] Comment on above: Performed By: #### A DIFF, ANEU, GFR, CBC, LAC, LIP, CMP, MDW ####[place] [address] Hgb 14.6 G/dL Normal 12.0-16.0 [facility] Comment on above: Performed By: #### A DIFF, ANEU, GFR, CBC, LAC, LIP, CMP, MDW ####[place] [address] MCH (RBC) [Entitic mass] 32.5 pg Normal 27.0-33.0 [facility] Comment on above: Performed By: #### A DIFF, ANEU, GFR, CBC, LAC, LIP, CMP, MDW ####[place] [address] MCHC 33.7 G/dL Normal 32.0-36.0 [facility] Comment on above: Performed By: #### A DIFF, ANEU, GFR, CBC, LAC, LIP, CMP, MDW ####[place] [address] MCV (RBC) [Entitic vol] 96.5 fL Normal 80.0-99.0 [facility] Comment on above: Performed By: #### A DIFF, ANEU, GFR, CBC, LAC, LIP, CMP, MDW ####[place] [address] Platelet 370 10 3/mcL Normal 150-450 [facility] Comment on above: Performed By: #### A DIFF, ANEU, GFR, CBC, LAC, LIP, CMP, MDW ####[place] [address] Platelet mean volume (Bld) [Entitic vol] 7.4 fL Normal 6.6-10.5 [facility] Comment on above: Performed By: #### A DIFF, ANEU, GFR, CBC, LAC, LIP, CMP, MDW ####[place] [address] RBC 4.50 10 6/mcL Normal 4.10-5.30 [facility] Comment on above: Performed By: #### A DIFF, ANEU, GFR, CBC, LAC, LIP, CMP, MDW ####[place] [address] WBC 9.0 10 3/mcL Normal 4.5-10.8 [facility] Comment on above: Performed By: #### A DIFF, ANEU, GFR, CBC, LAC, LIP, CMP, MDW ####[place] [address] CMPon 03-09-2025 Albumin Level 4.4 G/dL Normal 3.2-4.8 [facility] Comment on above: Performed By: #### A DIFF, ANEU, GFR, CBC, LAC, LIP, CMP, MDW ####[place] [address] Albumin/Globulin [Mass ratio] 1.4 {ratio} Normal 0.9-1.6 [facility] Comment on above: Performed By: #### A DIFF, ANEU, GFR, CBC, LAC, LIP, CMP, MDW ####[place] [address] ALP [Catalytic activity/Vol] 76 U/L Normal 38-126 [facility] Comment on above: Performed By: #### A DIFF, ANEU, GFR, CBC, LAC, LIP, CMP, MDW ####[place] [address] ALT [Catalytic activity/Vol] 11 U/L Normal 10-49 [facility] Comment on above: Performed By: #### A DIFF, ANEU, GFR, CBC, LAC, LIP, CMP, MDW ####[place] [address] AST [Catalytic activity/Vol] 19 U/L Normal 8-34 [facility] Comment on above: Performed By: #### A DIFF, ANEU, GFR, CBC, LAC, LIP, CMP, MDW ####[place] [address] Bili Total 0.40 mg/dL Normal 0.20-1.20 [facility] Comment on above: Result Comment: Use of this assay is not recommended for patients undergoing treatment with eltrombopag due to the potential for falsely elevated results. Performed By: #### A DIFF, ANEU, GFR, CBC, LAC, LIP, CMP, MDW ####[place] [address] BUN/Creatinine Ratio 10.3 ratio Normal 10.0-22.0 [facility] Comment on above: Performed By: #### A DIFF, ANEU, GFR, CBC, LAC, LIP, CMP, MDW ####[place] [address] Calcium [Mass/Vol] 9.9 mg/dL Normal 8.7-10.4 [facility] Comment on above: Performed By: #### A DIFF, ANEU, GFR, CBC, LAC, LIP, CMP, MDW ####[address] [address] Chloride [Moles/Vol] 109 mmol/L Normal 98-110 [facility] Comment on above: Performed By: #### A DIFF, ANEU, GFR, CBC, LAC, LIP, CMP, W ####[address] [address] CO2 [Moles/Vol] 27 mmol/L Normal 22-32 [facility] Comment on above: Performed By: #### A DIFF, ANEU, GFR, CBC, LAC, LIP, CMP, YOUNG ####[place] [id number] Creatinine [Mass/Vol] 0.87 mg/dL Normal 0.50-1.20 [facility] Comment on above: Result Comment: Test ing performed on [employer] analyzer using enzymatic creatinine methodology. Performed By: #### A DIFF, ANEU, GFR, CBC, LAC, LIP, CMP, YOUNG ####[place] [id number] Electrolyte Balance 4.0 mEq/L Normal 4.0-15.0 [facility] Comment on above: Performed By: #### A DIFF, ANEU, GFR, CBC, LAC, LIP, CMP, YOUNG ####[address] [address] Globulin 3.1 G/dL Normal 2.5-4.2 [facility] Comment on above: Performed By: #### A DIFF, ANEU, GFR, CBC, LAC, LIP, CMP, W ####[address] [address] Glucose [Mass/Vol] 80 mg/dL Normal 70-110 [facility] Comment on above: Performed By: #### A DIFF, ANEU, GFR, CBC, LAC, LIP, CMP, MDW ####[address] [address] Potassium [Moles/Vol] 3.9 mmol/L Normal 3.5-5.0 [facility] Comment on above: Performed By: #### A DIFF, ANEU, GFR, CBC, LAC, LIP, CMP, MDW ####[place] [address] [place] [address] Sodium [Moles/Vol] 140 mmol/L Normal 136-145 [facility] Comment on above: Performed By: #### A DIFF, ANEU, GFR, CBC, LAC, LIP, CMP, MDW ####[address] [address] Total Protein 7.5 G/dL Normal 5.7-8.2 [facility] Comment on above: Performed By: #### A DIFF, ANEU, GFR, CBC, LAC, LIP, CMP, MDW ####[address] [address] Urea nitrogen [Mass/Vol] 9.0 mg/dL Normal 8.0-22.0 [facility] Comment on above: Performed By: #### A DIFF, ANEU, GFR, CBC, LAC, LIP, CMP, MDW ####[address] [address] [address] RENALon 03-09-2025 CT RENAL Normal [facility] LABORATORYOrdered By: Nicole Wilson on [...] above: Interpretive Data: T esting performed on [employer] analyzer using enzymatic creatinine methodology. Electrolyte Balance [...] 9.0 103/mcL Normal 4.5 - 10.8 10^3/mcL Workflow SS LACon 03-09-2025 Lactic Acid Lvl 0.9 mmol/L Normal 0.5-2.2 [facility] Comment on above: Performed By: #### A DIFF, ANEU, GFR, CBC, LAC, LIP, CMP, MDW ####[place] [address] LIPon 03-09-2025 Lipase Level 25 U/L Normal 12-53 [facility] Comment on above: Result Comment: No te - New Reference Range in effect 20 Performed By: #### A DIFF, ANEU, GFR, CBC, LAC, LIP, CMP, MDW ####[place] [address] UAon 03-09-2025 Color (U) Yellow Normal [facility] Comment on above: Performed By: #### U A, UAMIC ####[place] [address] Glucose (U) [Mass/Vol] Negative Normal Negative [facility] Comment on above: Performed By: #### U A, UAMIC ####[place] [address] Ketones Ql (U) Negative Normal Neg-Trace [facility] Comment on above: Performed By: #### U A, UAMIC ####[place] [address] UA Appear Clear Normal Clear [facility] Comment on above: Performed By: #### U A, UAMIC ####[place] [address] UA Blood Small Abnormal Neg-Trace [facility] Comment on above: Performed By: #### U A, UAMIC ####[place] [address] UA Leuk Est Moderate Abnormal Negative [facility] Comment on above: Performed By: #### U A, UAMIC ####[place] [address] UA Nitrite Negative Normal Negative [facility] Comment on above: Performed By: #### U A, UAMIC ####[place] [address] UA pH 7.5 Normal 5.0 - 8.0 [facility] Comment on above: Performed By: #### U A, UAMIC ####[place] [address] UA Protein Trace Normal Negative [facility] Comment on above: Performed By: #### U A, UAMIC ####[place] [address] UA Spec Grav <=1.005 Abnormal 1.006-1.029 [facility] Comment on above: Performed By: #### U A, UAMIC ####[place] [address] UA Specimen Type Not Given Normal [facility] Comment on above: Performed By: #### U A, UAMIC ####[place] [address] UA Urobilinogen 0.2 E.U./dL Normal 0.2-1.0 [facility] Comment on above: Performed By: #### U A, UAMIC ####[place] [address] Urobilinogen (U) [Mass/Vol] Negative Normal Neg-Trace [facility] Comment on above: Performed By: #### U A, UAMIC ####[place] [address] UAMICon 03-09-2025 UA Bacteria Trace Abnormal Negative [facility] Comment on above: Performed By: #### U A, UAMIC ####[place] [address] UA Crenated RBCs Rare Abnormal [facility] Comment on above: Performed By: #### U A, UAMIC ####[facility] [place] [address] UA RBC 3-5 Abnormal 0-2 [facility] Comment on above: Performed By: #### U A, UAMIC ####[facility] [place] [address] UA Squam Epithelial Rare Normal 0-20 [facility] Comment on above: Performed By: #### U A, UAMIC ####[facility] [place], [place] [id number] UA WBC 3-5 Normal 0-5 [facility] Comment on above: Performed By: #### U A, UAMIC ####[facility] [place] [address] XR CHEST 1 VIEWon 03-09-2025 XR CHEST 1 VIEW Normal [facility] ED MED ADMINISTRATION DETAIL on 03-08-2025 ED MED ADMINISTRATION DETAIL Normal [facility] ED MED ADMINISTRATION DETAIL Normal [facility] ED NURSES CLINICAL NOTEon ED NURSES CLINICAL NOTE Normal [facility] ED NURSES CLINICAL NOTE Normal [facility] ED ORDER SHEET (CPOE ONLY)on 03-08-2025 ED ORDER SHEET (CPOE ONLY) Normal [facility] ED ORDER SHEET (CPOE ONLY) Normal [facility] ED PHYSICIAN CLINICAL REPORT on 03-08-2025 ED PHYSICIAN CLINICAL REPORT Normal [facility] ED PHYSICIAN CLINICAL REPORT Normal [facility] ED SUPER BILLon 03-08-2025 ED SUPER BILL Normal [facility] ED SUPER BILL Normal [facility] ED VISIT SUMMARYon ED VISIT SUMMARY Normal [facility] ED VISIT SUMMARY Normal [facility] ED VITALS FLOW SHEETon 03-08 ED VITALS FLOW SHEET Normal [facility] ED VITALS FLOW SHEET Normal [facility] URINE CULTURE [CCL]on 2024 Bacteria identified Cx Nom (U) Normal [facility] Comment on above: Performed By: #### 2 [address] ####[facility],[address] [place] [address] BMP with eGFRon 03-07-2025 AGE 34 years Normal [facility] Comment on above: Performed By: #### 2 58515 ####[facility],[address] [place] [address] Anion gap [Moles/Vol] 14 mmol/L Normal 10 - 20 [facility] Comment on above: Performed By: #### 2 40515 ####[facility],[address] [place] [address] BMP with eGFR Normal [facility] Comment on above: Result Comment: BASI C METABOLIC PANEL Performed By: #### 2 40601 ####[facility],[address] [place] [address] Calcium [Mass/Vol] 8.8 mg/dL Normal 8.5 - 10.1 [facility] Comment on above: Performed By: #### 2 86699 ####[facility],[address] [place] [address] Chloride [Moles/Vol] 105 mmol/L Normal 98 - 107 [facility] Comment on above: Performed By: #### 2 24968 ####[facility],[address] [place] [address] CO2 [Moles/Vol] 26.5 mmol/L Normal 21.0 - 32.0 [facility] Comment on above: Performed By: #### 2 12685 ####[facility],[address] [place] [address] Creatinine [Mass/Vol] 0.94 mg/dL Normal 0.55 - 1.02 [facility] Comment on above: Performed By: #### 2 73201 ####[facility],[address] [place] [address] GFR/1.73 sq M.predicted among non-blacks MDRD (S/P/Bld) [Vol rate/Area] mL/min/{1.73_m2} Normal 60 - 999 [facility] Comment on above: Performed By: #### 2 37316 ####[facility],[address] [place] [address] Result Comment: ACCO RDING TO THE NATIONAL KIDNEY DISEASE EDUCATION PROGRAM(NKDE), A NORMAL eGFRIS A VALUE GREATER THAN OR EQUAL TO 60 ML/MIN/1.73 SQ METERS.CHRONIC KIDNEY DISEASE: <60mL/MIN/1.73 SQ METERSKIDNEY FAILURE: <15mL/MIN/1.73 SQ METERSTHIS TEST SHOULD ONLY BE USED FOR PATIENTS 18 YEARS OF AGE AND OLDER. Glucose [Mass/Vol] 109 mg/dL High 74 - 106 [facility] Comment on above: Performed By: #### 2 50914 ####[facility],[address] [place] [address] Potassium [Moles/Vol] 3.7 mmol/L Normal 3.5 - 5.1 [facility] Comment on above: Performed By: #### 2 87435 ####[facility],[address] [place] [address] Sodium [Moles/Vol] 142 mmol/L Normal 136 - 145 [facility] Comment on above: Performed By: #### 2 27586 ####[facility],[address] [place] [address] Urea nitrogen [Mass/Vol] 11 mg/dL Normal 7 - 18 [facility] Comment on above: Performed By: #### 2 19808 ####[facility],[address] [place] [address] CBC + DIFFon 03-07-2025 Baso # 0.04 x10EE3/UL Normal 0.00 - 0.10 [facility] Comment on above: Performed By: #### 2 17667 ####[facility],[address] [place] [address] Basophils/100 WBC (Bld) 0.5 % Normal 0.0 - 2.0 [facility] Comment on above: Performed By: #### 2 70702 ####[facility],[address] [place], [place] [address] CBC + DIFF Normal [facility] Comment on above: Result Comment: CBC- COMPLETE BLOOD COUNT Performed By: #### 2 48975 ####[facility],[address] [place] [address] EO # 0.19 x10EE3/UL Normal 0.00 - 0.50 [facility] Comment on above: Performed By: #### 2 01893 ####[facility],[address] [place], [place] [address] Eosinophils/100 WBC (Bld) 2.5 % Normal 0.0 - 7.0 [facility] Comment on above: Performed By: #### 2 59971 ####[facility],[address] [place] [address] Erythrocyte distribution width (RBC) [Ratio] 13.4 % Normal 12.0 - 15.6 [facility] Comment on above: Performed By: #### 2 03597 ####[facility],[address] [place] [address] Hematocrit (Bld) [Volume fraction] 36.1 % Normal 34.0 - 46.0 [facility] Comment on above: Performed By: #### 2 69225 ####[facility],[address] [place], [place] [address] Hemoglobin (Bld) [Mass/Vol] 12.4 g/dL Normal 12.0 - 16.0 [facility] Comment on above: Performed By: #### 2 15678 ####[facility],[address] [place] [address] Lymph # 2.18 x10EE3/UL Normal 0.80 - 2.80 [facility] Comment on above: Performed By: #### 2 88109 ####[facility],[address],[place] [address] Lymphocytes/100 WBC (Bld) 27.9 % Normal 20.0 - 45.0 [facility] Comment on above: Performed By: #### 2 01450 ####[facility],[address] [place] [address] MANUAL DIFF N/A Normal [facility] Comment on above: Performed By: #### 2 91404 ####[facility],[address] [place] [address] MCH (RBC) [Entitic mass] 33 pg Normal 27 - 33 [facility] Comment on above: Performed By: #### 2 34695 ####[facility],[address] [place] [address] MCHC 34 X10 3 Normal 32 - 36 [facility] Comment on above: Performed By: #### 2 68886 ####[facility],[address] [place] [address] MCV (RBC) [Entitic vol] 97 fL Normal 80 - 99 [facility] Comment on above: Performed By: #### 2 26500 ####[facility],[address] [place] [address] [place] # 0.67 x10EE3/UL Normal 0.20 - 1.00 [facility] Comment on above: Performed By: #### 2 19974 ####[facility],[address] [place] [address] MONOS % 8.5 % Normal 0.0 - 10.0 [facility] Comment on above: Performed By: #### 2 28225 ####[facility],[address] [place], [place] [address] Morphology Efra (Bld) [Interp] N/A Normal [facility] Comment on above: Performed By: #### 2 58952 ####[facility],[address] [place] [address] Neut # 4.76 x10EE3/UL Normal 1.50 - 7.10 [facility] Comment on above: Performed By: #### 2 17592 ####[facility],[address] [place] [address] Neutrophils/100 WBC (Bld) 60.8 % Normal 46.0 - 76.0 [facility] Comment on above: Performed By: #### 2 08117 ####[facility],[address] [place], [place] [address] PLATELET 367 x10EE3/UL Normal 150 - 450 [facility] Comment on above: Performed By: #### 2 11702 ####[facility],[address] [place] [address] Platelet mean volume (Bld) [Entitic vol] 6.9 fL Normal 6.6 - 10.5 [facility] Comment on above: Result Comment: AUTO MATED DIFFERENTIAL Performed By: #### 2 08539 ####[facility],[address] [place], [place] [address] RBC 3.74 x 10EE6/UL Low 4.10 - 5.30 [facility] Comment on above: Performed By: #### 2 77666 ####[facility],[address] [place] [address] WBC 7.8 x 10EE3/UL Normal 4.5 - 10.8 [facility] Comment on above: Performed By: #### 2 71095 ####[facility],[address] [place] [address] ED MED ADMINISTRATION DETAIL on 03-07-2025 ED MED ADMINISTRATION DETAIL Normal [facility] ED NURSES CLINICAL NOTEon ED NURSES CLINICAL NOTE Normal [facility] ED ORDER SHEET (CPOE ONLY)on 03-07-2025 ED ORDER SHEET (CPOE ONLY) Normal [facility] ED PHYSICIAN CLINICAL REPORT on 03-07-2025 ED PHYSICIAN CLINICAL REPORT Normal [facility] ED SUPER BILLon 03-07-2025 ED SUPER BILL Normal [facility] ED VISIT SUMMARYon ED VISIT SUMMARY Normal [facility] ED VITALS FLOW SHEETon 03-07 ED VITALS FLOW SHEET Normal [facility] CMP with eGFRon 03-06-2025 AGE 34 years Normal [facility] Comment on above: Performed By: #### 2 78100 ####[facility],[address] [place] [address]7983 Albumin [Mass/Vol] 3.5 g/dL Normal 3.4 - 5.0 [facility] Comment on above: Performed By: #### 2 68050 ####[facility],[address] [place] [address] Albumin/Globulin [Mass ratio] 1.2 {ratio} Normal 0.9 - 1.6 [facility] Comment on above: Performed By: #### 2 50146 ####[facility],[address] [place] [address]235 ALK PHOS 70 U/L Normal 46 - 116 [facility] Comment on above: Performed By: #### 2 28629 ####[facility],[address] [place] [address] 33899 ALT [Catalytic activity/Vol] 15 U/L Low 16 - 63 [facility] Comment on above: Performed By: #### 2 58205 ####[facility],[address] [place] [address]2962 Anion gap [Moles/Vol] 11 mmol/L Normal 10 - 20 [facility] Comment on above: Performed By: #### 2 21139 ####[facility],[address] [place] [address]185 AST [Catalytic activity/Vol] 21 U/L Normal 13 - 39 [facility] Comment on above: Result Comment: NATHANIEL ANA LILIA SAMPLE;MANUAL DILUTION PERFORMED Performed By: #### 2 43145 ####[facility],[address] [place] [address]53 B/C RATIO 11 ratio Normal 0 - 30 [facility] Comment on above: Performed By: #### 2 42165 ####[facility],[address] [place] [address]191 Bilirubin [Mass/Vol] 0.3 mg/dL Normal 0.2 - 1.0 [facility] Comment on above: Performed By: #### 2 13376 ####[facility],[address] [place] [address]25 Calcium [Mass/Vol] 8.8 mg/dL Normal 8.5 - 10.1 [facility] Comment on above: Performed By: #### 2 85224 ####[place] [address] Chloride [Moles/Vol] 107 mmol/L Normal 98 - 107 [facility] Comment on above: Performed By: #### 2 17331 ####[place] [address] CMP with eGFR Normal [facility] Comment on above: Result Comment: COMP REHENSIVE METABOLIC PANEL Performed By: #### 2 03998 ####[address] [address] CO2 [Moles/Vol] 24.2 mmol/L Normal 21.0 - 32.0 [facility] Comment on above: Performed By: #### 2 23217 ####[address] [address] Creatinine [Mass/Vol] 1.03 mg/dL High 0.55 - 1.02 [facility] Comment on above: Performed By: #### 2 44654 ####[address] [address] GFR/1.73 sq M.predicted among non-blacks MDRD (S/P/Bld) [Vol rate/Area] mL/min/{1.73_m2} Normal 60 - 999 [facility] Comment on above: Performed By: #### 2 74399 ####[facility],[address] [place] [address] Result Comment: ACCO RDING TO THE NATIONAL KIDNEY DISEASE EDUCATION PROGRAM(NKDE), A NORMAL eGFRIS A VALUE GREATER THAN OR EQUAL TO 60 ML/MIN/1.73 SQ METERS.CHRONIC KIDNEY DISEASE: <60mL/MIN/1.73 SQ METERSKIDNEY FAILURE: <15mL/MIN/1.73 SQ METERSTHIS TEST SHOULD ONLY BE USED FOR PATIENTS 18 YEARS OF AGE AND OLDER. Globulin (S) [Mass/Vol] 2.9 g/dL Normal 1.5 - 3.8 [facility] Comment on above: Performed By: #### 2 98611 ####[facility],[address] [place] [address]980 Glucose [Mass/Vol] 111 mg/dL High 74 - 106 [facility] Comment on above: Performed By: #### 2 70785 ####[facility],[address] [place] [address]35 Potassium [Moles/Vol] 3.6 mmol/L Normal 3.5 - 5.1 [facility] Comment on above: Performed By: #### 2 62733 ####[facility],[address] [place] [address] 36096 Protein [Mass/Vol] 6.4 g/dL Normal 6.4 - 8.2 [facility] Comment on above: Performed By: #### 2 87251 ####[facility],[address] [place] [address]1983 Sodium [Moles/Vol] 139 mmol/L Normal 136 - 145 [facility] Comment on above: Performed By: #### 2 59091 ####[facility],[address] [place] [address] 56960 Urea nitrogen [Mass/Vol] 11 mg/dL Normal 7 - 18 [facility] Comment on above: Performed By: #### 2 73823 ####[facility],[address] [place] [address] CBC + DIFFon 03-05-2025 Baso # 0.03 x10EE3/UL Normal 0.00 - 0.10 [facility] Comment on above: Performed By: #### 2 50033 ####[facility],[address] [place] [address]67 Basophils/100 WBC (Bld) 0.3 % Normal 0.0 - 2.0 [facility] Comment on above: Performed By: #### 2 73044 ####[facility],[address] [place] [address] CBC + DIFF Normal [facility] Comment on above: Result Comment: CBC- COMPLETE BLOOD COUNT Performed By: #### 2 65611 ####[facility],[address] [place] [address] EO # 0.28 x10EE3/UL Normal 0.00 - 0.50 [facility] Comment on above: Performed By: #### 2 96546 ####[facility],[address] [place] [address]1382 Eosinophils/100 WBC (Bld) 3.0 % Normal 0.0 - 7.0 [facility] Comment on above: Performed By: #### 2 10371 ####[facility],[address] [place], [place] [address] Erythrocyte distribution width (RBC) [Ratio] 13.4 % Normal 12.0 - 15.6 [facility] Comment on above: Performed By: #### 2 55346 ####[facility],[address] [place], [place] [address] Hematocrit (Bld) [Volume fraction] 38.4 % Normal 34.0 - 46.0 [facility] Comment on above: Performed By: #### 2 59165 ####[facility],[address] [place] [address]776 Hemoglobin (Bld) [Mass/Vol] 13.7 g/dL Normal 12.0 - 16.0 [facility] Comment on above: Performed By: #### 2 26580 ####[facility],[address] [place] [address] 02167 Lymph # 2.75 x10EE3/UL Normal 0.80 - 2.80 [facility] Comment on above: Performed By: #### 2 78157 ####[facility],[address] [place], [place] [address] Lymphocytes/100 WBC (Bld) 30.0 % Normal 20.0 - 45.0 [facility] Comment on above: Performed By: #### 2 72688 ####[facility],[address] [place], [place] [address] MANUAL DIFF N/A Normal [facility] Comment on above: Performed By: #### 2 84599 ####[facility],[address] [place] [address] MCH (RBC) [Entitic mass] 34 pg High 27 - 33 [facility] Comment on above: Performed By: #### 2 80787 ####[facility],[address] [place] [address] 48743 MCHC 36 X10 3 Normal 32 - 36 [facility] Comment on above: Performed By: #### 2 46193 ####[facility],[address] [place] [address] 40651 MCV (RBC) [Entitic vol] 95 fL Normal 80 - 99 [facility] Comment on above: Performed By: #### 2 70424 ####[facility],[address] [place] [address]75[address] [place] # 0.71 x10EE3/UL Normal 0.20 - 1.00 [facility] Comment on above: Performed By: #### 2 72298 ####[facility],[address] [place] [address] 14246 MONOS % 7.7 % Normal 0.0 - 10.0 [facility] Comment on above: Performed By: #### 2 69720 ####[facility],[address] [place] [address] 040[address] Morphology Efra (Bld) [Interp] N/A Normal [facility] Comment on above: Performed By: #### 2 31194 ####[facility],[address] [place] [address] 38396 Neut # 5.41 x10EE3/UL Normal 1.50 - 7.10 [facility] Comment on above: Performed By: #### 2 22309 ####[facility],[address] [place] [address] 42429 Neutrophils/100 WBC (Bld) 59.0 % Normal 46.0 - 76.0 [facility] Comment on above: Performed By: #### 2 85370 ####[facility],[address] [place] [address] 39204 PLATELET 347 x10EE3/UL Normal 150 - 450 [facility] Comment on above: Performed By: #### 2 14039 ####[facility],[address] [place] [address] 72983 Platelet mean volume (Bld) [Entitic vol] 6.8 fL Normal 6.6 - 10.5 [facility] Comment on above: Result Comment: AUTO MATED DIFFERENTIAL Performed By: #### 2 62922 ####[facility],[address] [place] [address] 10635 RBC 4.05 x 10EE6/UL Low 4.10 - 5.30 [facility] Comment on above: Performed By: #### 2 82992 ####[facility],[address] [place] [address] 58163 WBC 9.2 x 10EE3/UL Normal 4.5 - 10.8 [facility] Comment on above: Performed By: #### 2 70281 ####[facility],[address] [place] [address] KUB (KIDNEY STONE PROTOCO L)on 03-05-2025 CT KUB (KIDNEY STONE PROTOCOL) Normal [facility] LACTATEon 03-05-2025 Lactate [Moles/Vol] 1.5 mmol/L Normal 0.4 - 2.0 [facility] Comment on above: Performed By: #### 2 87867 ####[facility],[address] [place], [place] [phone] URINALYSISon 03-05-2025 Amorphous 1+ Normal [facility] Comment on above: Performed By: #### 2 80888 ####[facility],[address] [place] [address] Bacteria 3+ Normal [facility] Comment on above: Performed By: #### 2 50025 ####[facility],[address] [place], [place] [address] Bilirubin Ql (U) Negative Normal NORMAL: NEGATIVE [facility] Comment on above: Performed By: #### 2 41815 ####[facility],[address] [place], [place] [address] Casts NONE Normal [facility] Comment on above: Performed By: #### 2 32080 ####[facility],[address] [place], [place] [address] Clarity (U) sl.cloudy Normal NORMAL: CLEAR [facility] Comment on above: Performed By: #### 2 15502 ####[facility],[address] [place], [place] [address] Color (U) p.yel Normal NORMAL: YELLOW [facility] Comment on above: Performed By: #### 2 00989 ####[facility],[address] [place] [address] 05333 Crystals LM Nom (Urine sed) NONE Normal [facility] Comment on above: Performed By: #### 2 42464 ####[facility],[address] [place] [address] 96025 Epi Cells FEW Normal [facility] Comment on above: Performed By: #### 2 14498 ####[facility],[address] [place] [address] 52726 Glucose Ql (U) NORM Normal NORMAL: NORMAL [facility] Comment on above: Performed By: #### 2 31117 ####[facility],[address] [place] [address]0620 Hemoglobin Ql (U) 50 Abnormal NORMAL: NEGATIVE [facility] Comment on above: Performed By: #### 2 21426 ####[facility],[address] [place] [address],[facility] [address] Ketone Negative Normal NORMAL: NEGATIVE [facility] Comment on above: Performed By: #### 2 16401 ####[facility],[address] [place] [address] 56633 Leukocytes 500 Abnormal NORMAL: NEGATIVE [facility] Comment on above: Performed By: #### 2 09342 ####[facility],[address] [place] [address]405 Mucous NONE Normal [facility] Comment on above: Performed By: #### 2 44812 ####[facility],[address] [place] [address] 60007 Nitrite Ql (U) Negative Normal NORMAL: NEGATIVE [facility] Comment on above: Performed By: #### 2 47086 ####[facility],[address] [place] [address] 90302 pH (U) 7 [pH] Normal NORMAL: 5.0-8.0 [facility] Comment on above: Performed By: #### 2 74934 ####[facility],[address] [place] [address] 96985 Protein Ql (U) 30 Abnormal NORMAL: NEGATIVE [facility] Comment on above: Performed By: #### 2 94037 ####[facility],[address] [place] [address] 08531 Rbc 0-5 Normal 0-3/hpf [facility] Comment on above: Performed By: #### 2 32618 ####[facility],[address] [place] [address] Sp [place] 1.010 Normal NORMAL: 1.010-1.030 [facility] Comment on above: Performed By: #### 2 13838 ####[facility],[address] [place] [address] Specimen Type R Normal [facility] Comment on above: Performed By: #### 2 23792 ####[facility],[address] [place] [address] Urinalysis dipstick W Reflex Microscopic panel (U) SEE BELOW Normal [facility] Comment on above: Result Comment: MICR OSCOPIC Performed By: #### 2 47748 ####[facility],[address] [place] [address] Urobilinog NORM Normal NORMAL: NORMAL [facility] Comment on above: Performed By: #### 2 73726 ####[facility],[address] [place] [address] Wbc 26-50 Normal 0-5/hpf [facility] Comment on above: Performed By: #### 2 44130 ####[facility],[address] [place] [address] Yeast NONE Normal [facility] Comment on above: Performed By: #### 2 85019 ####[facility],[address] [place] [address] .Auto Diffon 02-16-2025 Basophil, Absolute 0.1 10 3/mcL Normal 0.0-0.3 [facility] Comment on above: Performed By: #### A DIFF, CBC, BMP, ANEU, GFR ####[address] [address] Basophils/100 WBC (Bld) 0.7 % Normal 0.0-2.5 [facility] Comment on above: Performed By: #### A DIFF, CBC, BMP, ANEU, GFR ####[address] [address] Eosinophil, Absolute 0.3 10 3/mcL Normal 0.0-0.7 [facility] Comment on above: Performed By: #### A DIFF, CBC, BMP, ANEU, GFR ####[address] [address] Eosinophils/100 WBC (Bld) 4.1 % Normal 0.0-6.0 [facility] Comment on above: Performed By: #### A DIFF, CBC, BMP, ANEU, GFR ####[address] [address] Lymphocyte, Absolute 2.1 10 3/mcL Normal 0.9-4.3 [facility] Comment on above: Performed By: #### A DIFF, CBC, BMP, ANEU, GFR ####[address] [address] Lymphocytes/100 WBC (Bld) 28.4 % Normal 20.0-40.0 [facility] Comment on above: Performed By: #### A DIFF, CBC, BMP, ANEU, GFR ####[address] [address] Monocyte, Absolute 0.6 10 3/mcL Normal 0.1-1.4 [facility] Comment on above: Performed By: #### A DIFF, CBC, BMP, ANEU, GFR ####[address] [address] Monocytes/100 WBC (Bld) 8.2 % Normal 2.0-13.0 [facility] Comment on above: Performed By: #### A DIFF, CBC, BMP, ANEU, GFR ####[address] [address] Neutrophils/100 WBC (Bld) 58.6 % Normal 50.0-75.0 [facility] Comment on above: Performed By: #### A DIFF, CBC, BMP, ANEU, GFR ####[address] [address] .GFRon 02-16-2025 Estimated Glomerular Filtration Rate 98 ml/min/1.73sqm Normal [facility] Comment on above: Result Comment: [...] #### A DIFF, CBC, BMP, ANEU, GFR ####[address] [address] .NEUABSon 02-16-2025 Neutrophil, Absolute 4.3 10 3/mcL Normal 2.3-8.1 [facility] Comment on above: Performed By: #### A DIFF, CBC, BMP, ANEU, GFR ####[address] [address] BMPon 02-16-2025 BUN/Creatinine Ratio 8.8 ratio Low 10.0-22.0 [facility] Comment on above: Order Comment: hemol yzed 02/16/2025 07:26:12 EDT Performed By: #### A DIFF, CBC, BMP, ANEU, GFR ####[address] [address] Calcium [Mass/Vol] 10.0 mg/dL Normal 8.7-10.4 [facility] Comment on above: Order Comment: hemol yzed 02/16/2025 07:26:12 EDT Performed By: #### A DIFF, CBC, BMP, ANEU, GFR ####[address] [address] Chloride [Moles/Vol] 106 mmol/L Normal 98-110 [facility] Comment on above: Order Comment: hemol yzed 02/16/2025 07:26:12 EDT Performed By: #### A DIFF, CBC, BMP, ANEU, GFR ####[address] [address] CO2 [Moles/Vol] 27 mmol/L Normal 22-32 [facility] Comment on above: Order Comment: hemol yzed 02/16/2025 07:26:12 EDT Performed By: #### A DIFF, CBC, BMP, ANEU, GFR ####[address] [address] Creatinine [Mass/Vol] 0.80 mg/dL Normal 0.50-1.20 [facility] Comment on above: Order Comment: hemol yzed 02/16/2025 07:26:12 EDT Result Comment: Test ing performed on [employer] analyzer using enzymatic creatinine methodology. Performed By: #### A DIFF, CBC, BMP, ANEU, GFR ####[address] [address] Electrolyte Balance 5.0 mEq/L Normal 4.0-15.0 [facility] Comment on above: Order Comment: hemol yzed 02/16/2025 07:26:12 EDT Performed By: #### A DIFF, CBC, BMP, ANEU, GFR ####[address] [address] Glucose [Mass/Vol] 89 mg/dL Normal 70-110 [facility] Comment on above: Order Comment: hemol yzed 02/16/2025 07:26:12 EDT Performed By: #### A DIFF, CBC, BMP, ANEU, GFR ####[address] [address] Potassium [Moles/Vol] 3.7 mmol/L Normal 3.5-5.0 [facility] Comment on above: Order Comment: hemol yzed 02/16/2025 07:26:12 EDT Performed By: #### A DIFF, CBC, BMP, ANEU, GFR ####[address] [address] Sodium [Moles/Vol] 138 mmol/L Normal 136-145 [facility] Comment on above: Order Comment: hemol yzed 02/16/2025 07:26:12 EDT Performed By: #### A DIFF, CBC, BMP, ANEU, GFR ####[place] [address] Urea nitrogen [Mass/Vol] 7.0 mg/dL Low 8.0-22.0 [facility] Comment on above: Order Comment: hemol yzed 02/16/2025 07:26:12 EDT Performed By: #### A DIFF, CBC, BMP, ANEU, GFR ####[place] [address] CBCon 02-16-2025 Erythrocyte distribution width (RBC) [Ratio] 14.1 % Normal 11.5-15.5 [facility] Comment on above: Performed By: #### A DIFF, CBC, BMP, ANEU, GFR ####[place] [address] Hematocrit (Bld) [Volume fraction] 43.1 % Normal 34.0-46.0 [facility] Comment on above: Performed By: #### A DIFF, CBC, BMP, ANEU, GFR ####[place] [address] Hgb 14.6 G/dL Normal 12.0-16.0 [facility] Comment on above: Performed By: #### A DIFF, CBC, BMP, ANEU, GFR ####[place] [address] MCH (RBC) [Entitic mass] 32.9 pg Normal 27.0-33.0 [facility] Comment on above: Performed By: #### A DIFF, CBC, BMP, ANEU, GFR ####[place] [address] MCHC 33.9 G/dL Normal 32.0-36.0 [facility] Comment on above: Performed By: #### A DIFF, CBC, BMP, ANEU, GFR ####[place] [address] MCV (RBC) [Entitic vol] 97.2 fL Normal 80.0-99.0 [facility] Comment on above: Performed By: #### A DIFF, CBC, BMP, ANEU, GFR ####[place] [address] Platelet 296 10 3/mcL Normal 150-450 [facility] Comment on above: Performed By: #### A DIFF, CBC, BMP, ANEU, GFR ####[place] [address] [place] [address] Platelet mean volume (Bld) [Entitic vol] 7.5 fL Normal 6.6-10.5 [facility] Comment on above: Performed By: #### A DIFF, CBC, BMP, ANEU, GFR ####[address] [address] RBC 4.44 10 6/mcL Normal 4.10-5.30 [facility] Comment on above: Performed By: #### A DIFF, CBC, BMP, ANEU, GFR ####[address] [address] WBC 7.3 10 3/mcL Normal 4.5-10.8 [facility] Comment on above: Performed By: #### A DIFF, CBC, BMP, ANEU, GFR ####[address] [address] IR NEPHROSTOMY EXCHANGEon IR NEPHROSTOMY EXCHANGE Normal [facility] LABORATORYOrdered By: SYSTEM SYSTEM on 02-16-2025 Calcium [Mass/Vol] 10.0 mg/dL Normal 8.7 - 10. 4 mg/dL ADM SS Chloride [Moles/Vol] 106 mmol/L Normal 98 - 11 0 mEq/L ADM SS CO2 [Moles/Vol] 27 mmol/L Normal 22 - 32 mEq/L ADM SS Creatinine [Mass/Vol] 0.80 mg/dL Normal 0.50 - 1.20 mg/dL ADM SS Comment on above: Interpretive Data: T esting performed on [employer] analyzer using enzymatic creatinine methodology. Electrolyte Balance [...] 14.1 % Normal 11.5 - 15.5 % Workflow SS Hematocrit (Bld) [Volume fraction] 43.1 % Normal 34.0 - 46.0 % AH Workflow SS Hemoglobin (Bld) [Mass/Vol] 14.6 G/dL Normal 12.0 - 16.0 G/dL Workflow SS Lymphocytes (Bld) [#/Vol] 2.1 103/mcL Normal 0.9 - 4.3 10^3/mcL AH Workflow SS Lymphocytes/100 WBC (Bld) 28.4 % Normal 20.0 - 40.0 % Workflow SS MCH (RBC) [Entitic mass] 32.9 pg Normal 27.0 - 33.0 pg Workflow [...] 0 10^6/mcL Workflow SS WBC (Bld) [#/Vol] 7.3 103/mcL Normal 4.5 - 10.8 10^3/mcL AH Workflow SS LABORATORYOrdered By: Nell Gillespie on 02-16-2025 Beta HCG ( test) Ql (U) Negative (02/16/25 6:58 AM) [facility] Work Phone: CBC + DIFFon 02-10-2025 Baso # 0.03 x10EE3/UL Normal 0.00 - 0.10 [facility] Comment on above: Performed By: #### 2 32545 ####[facility],[address] [place], [place] [address] Basophils/100 WBC (Bld) 0.3 % Normal 0.0 - 2.0 [facility] Comment on above: Performed By: #### 2 19652 ####[facility],[address] [place] [address]47 CBC + DIFF Normal [facility] Comment on above: Result Comment: CBC- COMPLETE BLOOD COUNT Performed By: #### 2 50594 ####[facility],[address] [place] [address] EO # 0.11 x10EE3/UL Normal 0.00 - 0.50 [facility] Comment on above: Performed By: #### 2 76595 ####[facility],[address] [place] [address] 37075 Eosinophils/100 WBC (Bld) 1.1 % Normal 0.0 - 7.0 [facility] Comment on above: Performed By: #### 2 34151 ####[facility],[address] [place], [place] [address] Erythrocyte distribution width (RBC) [Ratio] 13.3 % Normal 12.0 - 15.6 [facility] Comment on above: Performed By: #### 2 07636 ####[facility],[address] [place] [address] Hematocrit (Bld) [Volume fraction] 41.1 % Normal 34.0 - 46.0 [facility] Comment on above: Performed By: #### 2 39027 ####[facility],[address] [place] [address] Hemoglobin (Bld) [Mass/Vol] 14.7 g/dL Normal 12.0 - 16.0 [facility] Comment on above: Performed By: #### 2 71463 ####[facility],[address] [place] [address] 62610 Lymph # 3.18 x10EE3/UL High 0.80 - 2.80 [facility] Comment on above: Performed By: #### 2 76190 ####[facility],[address] [place] [address] 07803 Lymphocytes/100 WBC (Bld) 29.2 % Normal 20.0 - 45.0 [facility] Comment on above: Performed By: #### 2 91121 ####[facility],[address] [place] [address] 92674 MANUAL DIFF N/A Normal [facility] Comment on above: Performed By: #### 2 50015 ####[facility],[address] [place] [address] MCH (RBC) [Entitic mass] 34 pg High 27 - 33 [facility] Comment on above: Performed By: #### 2 58665 ####[facility],[address] [place] [address] MCHC 36 X10 3 Normal 32 - 36 [facility] Comment on above: Performed By: #### 2 33817 ####[facility],[address] [place] [address] MCV (RBC) [Entitic vol] 96 fL Normal 80 - 99 [facility] Comment on above: Performed By: #### 2 99670 ####[facility],[address] [place] [address] [place] # 0.64 x10EE3/UL Normal 0.20 - 1.00 [facility] Comment on above: Performed By: #### 2 67334 ####[facility],[address] [place] [address] MONOS % 5.9 % Normal 0.0 - 10.0 [facility] Comment on above: Performed By: #### 2 78396 ####[facility],[address] [place] [address] Morphology Efra (Bld) [Interp] N/A Normal [facility] Comment on above: Performed By: #### 2 23192 ####[facility],[address] [place] [address] Neut # 6.90 x10EE3/UL Normal 1.50 - 7.10 [facility] Comment on above: Performed By: #### 2 91944 ####[facility],[address] [place] [address] Neutrophils/100 WBC (Bld) 63.5 % Normal 46.0 - 76.0 [facility] Comment on above: Performed By: #### 2 53745 ####[facility],[address] [place] [address] 69497 PLATELET 320 x10EE3/UL Normal 150 - 450 [facility] Comment on above: Performed By: #### 2 76188 ####[facility],[address] [place] [address] 12856 Platelet mean volume (Bld) [Entitic vol] 6.6 fL Normal 6.6 - 10.5 [facility] Comment on above: Result Comment: AUTO MATED DIFFERENTIAL Performed By: #### 2 22655 ####[facility],[address] [place] [address] 15529 RBC 4.29 x 10EE6/UL Normal 4.10 - 5.30 [facility] Comment on above: Performed By: #### 2 68670 ####[facility],[address] [place] [address] 00821 WBC 10.9 x 10EE3/UL High 4.5 - 10.8 [facility] Comment on above: Performed By: #### 2 02475 ####[facility],[address] [place] [address] 02435 CMP with eGFRon 02-10-2025 AGE 34 years Normal [facility] Comment on above: Performed By: #### 2 35468 ####[facility],[address] [place] [address]390 Albumin [Mass/Vol] 4.0 g/dL Normal 3.4 - 5.0 [facility] Comment on above: Performed By: #### 2 75734 ####[facility],[address] [place] [address] 07014 Albumin/Globulin [Mass ratio] 1.3 {ratio} Normal 0.9 - 1.6 [facility] Comment on above: Performed By: #### 2 63665 ####[facility],[address] [place] [address] 64643 ALK PHOS 73 U/L Normal 46 - 116 [facility] Comment on above: Performed By: #### 2 97138 ####[facility],[address] [place] [address] 05145 ALT [Catalytic activity/Vol] 13 U/L Low 16 - 63 [facility] Comment on above: Performed By: #### 2 56643 ####[facility],[address] [place] [address] 17419 Anion gap [Moles/Vol] 17 mmol/L Normal 10 - 20 [facility] Comment on above: Performed By: #### 2 21391 ####[facility],[address] [place] [address] 21471 AST [Catalytic activity/Vol] 11 U/L Low 13 - 39 [facility] Comment on above: Performed By: #### 2 14259 ####[facility],[address] [place] [address] 37142 B/C RATIO 12 ratio Normal 0 - 30 [facility] Comment on above: Performed By: #### 2 52260 ####[facility],[address] [place] [address] 82894 Bilirubin [Mass/Vol] 0.6 mg/dL Normal 0.2 - 1.0 [facility] Comment on above: Performed By: #### 2 41877 ####[facility],[address] [place] [address] 84476 Calcium [Mass/Vol] 9.5 mg/dL Normal 8.5 - 10.1 [facility] Comment on above: Performed By: #### 2 63933 ####[facility],[address] [place] [address] 17866 Chloride [Moles/Vol] 100 mmol/L Normal 98 - 107 [facility] Comment on above: Performed By: #### 2 37276 ####[facility],[address] [place] [address] 84663 CMP with eGFR Normal [facility] Comment on above: Result Comment: COMP REHENSIVE METABOLIC PANEL Performed By: #### 2 59811 ####[facility],[address] [place] [address] 69943 CO2 [Moles/Vol] 25.6 mmol/L Normal 21.0 - 32.0 [facility] Comment on above: Performed By: #### 2 98618 ####[facility],[address] [place] [address] 40003 Creatinine [Mass/Vol] 1.10 mg/dL High 0.55 - 1.02 [facility] Comment on above: Performed By: #### 2 54645 ####[facility],[address] [place] [address] 52629 eGFR 56 ML/MINUTE Low 60 - 999 [facility] Comment on above: Performed By: #### 2 96992 ####[address] [address] GFR/1.73 sq M.predicted among non-blacks MDRD (S/P/Bld) [Vol rate/Area] mL/min/{1.73_m2} Normal 60 - 999 [facility] Comment on above: Result Comment: ACCO RDING TO THE NATIONAL KIDNEY DISEASE EDUCATION PROGRAM(NKDE), A NORMAL eGFRIS A VALUE GREATER THAN OR EQUAL TO 60 ML/MIN/1.73 SQ METERS.CHRONIC KIDNEY DISEASE: <60mL/MIN/1.73 SQ METERSKIDNEY FAILURE: <15mL/MIN/1.73 SQ METERSTHIS TEST SHOULD ONLY BE USED FOR PATIENTS 18 YEARS OF AGE AND OLDER. Performed By: #### 2 20493 ####[facility],[address] [place] [address] 55969 Globulin (S) [Mass/Vol] 3.2 g/dL Normal 1.5 - 3.8 [facility] Comment on above: Performed By: #### 2 17524 ####[facility],[address] [place] [address] 03471 Glucose [Mass/Vol] 72 mg/dL Low 74 - 106 [facility] Comment on above: Performed By: #### 2 21067 ####[facility],[address] [place] [address] 58070 Potassium [Moles/Vol] 3.4 mmol/L Low 3.5 - 5.1 [facility] Comment on above: Performed By: #### 2 27616 ####[facility],[address] [place] [address] 19919 Protein [Mass/Vol] 7.2 g/dL Normal 6.4 - 8.2 [facility] Comment on above: Performed By: #### 2 96810 ####[facility],[address] [place] [address] 36290 Sodium [Moles/Vol] 139 mmol/L Normal 136 - 145 [facility] Comment on above: Performed By: #### 2 91796 ####[facility],[address] [place], [place] [address] Urea nitrogen [Mass/Vol] 13 mg/dL Normal 7 - 18 [facility] Comment on above: Performed By: #### 2 68032 ####[facility],[address] [place] [address] ABDOMEN/PELVIS WOon 02-10 CT ABDOMEN/PELVIS WO Normal [facility] ED MED ADMINISTRATION DETAIL on 02-10-2025 ED MED ADMINISTRATION DETAIL Normal [facility] ED NURSES CLINICAL NOTEon ED NURSES CLINICAL NOTE Normal [facility] ED ORDER SHEET (CPOE ONLY)on 02-10-2025 ED ORDER SHEET (CPOE ONLY) Normal [facility] ED PHYSICIAN CLINICAL REPORT on 02-10-2025 ED PHYSICIAN CLINICAL REPORT Normal [facility] ED SUPER BILLon 02-10-2025 ED SUPER BILL Normal [facility] ED VISIT SUMMARYon ED VISIT SUMMARY Normal [facility] ED VITALS FLOW SHEETon 02-10 ED VITALS FLOW SHEET Normal [facility] LACTATEon 02-10-2025 Lactate [Moles/Vol] 0.7 mmol/L Normal 0.4 - 2.0 [facility] Comment on above: Performed By: #### 2 41500 ####[facility],[address] [place] [address] 78255 URINALYSISon 02-10-2025 Amorphous NONE Normal [facility] Comment on above: Performed By: #### 2 31849 ####[facility],[address] [place] [address] 87345 Bacteria 3+ Normal [facility] Comment on above: Performed By: #### 2 02365 ####[facility],[address] [place] [address] 29045 Bilirubin Ql (U) Negative Normal NORMAL: NEGATIVE [facility] Comment on above: Performed By: #### 2 68251 ####[facility],[address] [place], [place] [address] Casts NONE Normal [facility] Comment on above: Performed By: #### 2 46903 ####[facility],[address] [place] [address] 82009 Clarity (U) sl.cloudy Normal NORMAL: CLEAR [facility] Comment on above: Performed By: #### 2 75010 ####[facility],[address] [place] [address] 08840 Color (U) yellow Normal NORMAL: YELLOW [facility] Comment on above: Performed By: #### 2 25717 ####[facility],[address] [place] [address] 07327 Crystals LM Nom (Urine sed) NONE Normal [facility] Comment on above: Performed By: #### 2 00709 ####[facility],[address] [place] [address] 77478 Epi Cells OCC Normal [facility] Comment on above: Performed By: #### 2 32059 ####[facility],[address] [place] [address] 91078 Glucose Ql (U) NORM Normal NORMAL: NORMAL [facility] Comment on above: Performed By: #### 2 86935 ####[facility],[address] [place] [address] 49191 Hemoglobin Ql (U) 250 Abnormal NORMAL: NEGATIVE [facility] Comment on above: Performed By: #### 2 77145 ####[facility],[address] [place], [place] [address] Ketone Negative Normal NORMAL: NEGATIVE [facility] Comment on above: Performed By: #### 2 62803 ####[facility],[address] [place] [address] Leukocytes 500 Abnormal NORMAL: NEGATIVE [facility] Comment on above: Performed By: #### 2 58565 ####[facility],[address] [place] [address] Mucous NONE Normal [facility] Comment on above: Performed By: #### 2 52169 ####[facility],[address] [place], [place] [address] Nitrite Ql (U) Negative Normal NORMAL: NEGATIVE [facility] Comment on above: Performed By: #### 2 89644 ####[facility],[address] [place], [place] [address] pH (U) 8 [pH] Normal NORMAL: 5.0-8.0 [facility] Comment on above: Performed By: #### 2 66445 ####[facility],[address] [place], [place] [address] Protein Ql (U) 100 Abnormal NORMAL: NEGATIVE [facility] Comment on above: Performed By: #### 2 64982 ####[facility],[address] [place], [place] [address] Rbc TNTC Normal 0-3/hpf [facility] Comment on above: Performed By: #### 2 14184 ####[facility],[address] [place] [address] Sp [place] 1.015 Normal NORMAL: 1.010-1.030 [facility] Comment on above: Performed By: #### 2 51529 ####[facility],[address] [place] [address] Specimen Type R Normal [facility] Comment on above: Performed By: #### 2 40867 ####[facility],[address] [place] [address] Urinalysis dipstick W Reflex Microscopic panel (U) SEE BELOW Normal [facility] Comment on above: Result Comment: MICR OSCOPIC Performed By: #### 2 48950 ####[facility],[address] [place] [address] Urobilinog NORM Normal NORMAL: NORMAL [facility] Comment on above: Performed By: #### 2 82796 ####[facility],[address] [place] [address] WBC (U) [#/Vol] /uL Normal 0-5/hpf [facility] Comment on above: Performed By: #### 2 51824 ####[facility],[address] [place] [address] Yeast NONE Normal [facility] Comment on above: Performed By: #### 2 70416 ####[facility],[address] [place] [address] Amorphous NONE Normal [facility] Comment on above: Performed By: #### 2 91983 ####[facility],[address] [place] [address] Bacteria TRACE Normal [facility] Comment on above: Performed By: #### 2 56250 ####[facility],[address] [place] [address] Bilirubin Ql (U) Negative Normal NORMAL: NEGATIVE [facility] Comment on above: Performed By: #### 2 82724 ####[facility],[address] [place] [address] Casts NONE Normal [facility] Comment on above: Performed By: #### 2 76256 ####[facility],[address] [place] [address] 82541 Clarity (U) sl.cloudy Normal NORMAL: CLEAR [facility] Comment on above: Performed By: #### 2 50941 ####[facility],[address] [place] [address] 35052 Color (U) alanna Normal NORMAL: YELLOW [facility] Comment on above: Performed By: #### 2 07536 ####[facility],[address] [place] [address] 27508 Crystals LM Nom (Urine sed) NONE Normal [facility] Comment on above: Performed By: #### 2 20869 ####[facility],[address] [place] [address] 55478 Epi Cells MANY Normal [facility] Comment on above: Performed By: #### 2 50287 ####[facility],[address] [place] [address] 91250 Glucose Ql (U) NORM Normal NORMAL: NORMAL [facility] Comment on above: Performed By: #### 2 02633 ####[facility],[address] [place] [address] 76276 Hemoglobin Ql (U) 25 Abnormal NORMAL: NEGATIVE [facility] Comment on above: Performed By: #### 2 03525 ####[facility],[address] [place] [address] 71495 Ketone Negative Normal NORMAL: NEGATIVE [facility] Comment on above: Performed By: #### 2 62632 ####[facility],[address] [place] [address] 51621 Leukocytes Negative Normal NORMAL: NEGATIVE [facility] Comment on above: Performed By: #### 2 31662 ####[facility],[address] [place] [address] 92283 Mucous NONE Normal [facility] Comment on above: Performed By: #### 2 41095 ####[facility],[address] [place] [address] Nitrite Ql (U) Negative Normal NORMAL: NEGATIVE [facility] Comment on above: Performed By: #### 2 98727 ####[facility],[address] [place] [address] pH (U) 5 [pH] Normal NORMAL: 5.0-8.0 [facility] Comment on above: Performed By: #### 2 92257 ####[facility],[address] [place] [address] Protein Ql (U) 30 Abnormal NORMAL: NEGATIVE [facility] Comment on above: Performed By: #### 2 90330 ####[facility],[address] [place] [address] Rbc 0-5 Normal 0-3/hpf [facility] Comment on above: Performed By: #### 2 63854 ####[facility],[address] [place] [address] Sp [place] 1.025 Normal NORMAL: 1.010-1.030 [facility] Comment on above: Performed By: #### 2 91456 ####[facility],[address] [place] [address] Specimen Type R Normal [facility] Comment on above: Performed By: #### 2 18440 ####[facility],[address] [place] [address] Urinalysis dipstick W Reflex Microscopic panel (U) SEE BELOW Normal [facility] Comment on above: Result Comment: MICR OSCOPIC Performed By: #### 2 23923 ####[facility],[address] [place] [address] Urobilinog 1 Abnormal NORMAL: NORMAL [facility] Comment on above: Performed By: #### 2 75848 ####[facility],[address] [place] [address] Wbc 1-5 Normal 0-5/hpf [facility] Comment on above: Performed By: #### 2 96340 ####[facility],[address] [place] [address] 86598 Yeast NONE Normal [facility] Comment on above: Performed By: #### 2 73630 ####[facility],[address] [place] [address] 76503 URINE CULTURE [CCL]on 2024 Bacteria identified Cx Nom (U) Normal [facility] Comment on above: Performed By: #### 2 36533 ####[facility],[address] [place], [place] [address] Bacteria identified Cx Nom (U) Normal [facility] Comment on above: Performed By: #### 2 78487 ####[facility],[address] [place], [place] [address] URINE CULTURE [CCL]on 2024 Bacteria identified Cx Nom (U) Normal [facility] Comment on above: Performed By: #### 2 28039 ####[facility],[address] [place], [place] [address] CBC + DIFFon 01-29-2025 BANDS 2 % Normal 0 - 5 [facility] Comment on above: Performed By: #### 2 47753 ####[facility],[address] [place], [place] [address] Baso # 0.04 x10EE3/UL Normal 0.00 - 0.10 [facility] Comment on above: Performed By: #### 2 65273 ####[facility],[address] [place] [address] 77725 Basophils/100 WBC (Bld) 0.2 % Normal 0.0 - 2.0 [facility] Comment on above: Performed By: #### 2 53601 ####[facility],[address] [place], [place] [address] CBC + DIFF Normal [facility] Comment on above: Result Comment: CBC- COMPLETE BLOOD COUNT Performed By: #### 2 94350 ####[place] [address] EO # 0.12 x10EE3/UL Normal 0.00 - 0.50 [facility] Comment on above: Performed By: #### 2 54630 ####[place] [address] Eosinophils/100 WBC (Bld) 0.7 % Normal 0.0 - 7.0 [facility] Comment on above: Performed By: #### 2 56590 ####[place] [address] Erythrocyte distribution width (RBC) [Ratio] 13.6 % Normal 12.0 - 15.6 [facility] Comment on above: Performed By: #### 2 00030 ####[place] [address] Hematocrit (Bld) [Volume fraction] 43.6 % Normal 34.0 - 46.0 [facility] Comment on above: Performed By: #### 2 63721 ####[place] [address] Hemoglobin (Bld) [Mass/Vol] 15.2 g/dL Normal 12.0 - 16.0 [facility] Comment on above: Performed By: #### 2 57385 ####[place] [phone] Lymph # 0.83 x10EE3/UL Normal 0.80 - 2.80 [facility] Comment on above: Performed By: #### 2 55896 ####[place] [address] Lymphocytes/100 WBC (Bld) 4.8 % Low 20.0 - 45.0 [facility] Comment on above: Performed By: #### 2 24629 ####[address],[place] [address] Lymphocytes/100 WBC (Bld) 4 % Low 20 - 45 [facility] Comment on above: Performed By: #### 2 40666 ####[facility],[address] [place] [address] MANUAL DIFF SEE BELOW Normal [facility] Comment on above: Performed By: #### 2 13617 ####[facility],[address] [place] [address] MCH (RBC) [Entitic mass] 34 pg High 27 - 33 [facility] Comment on above: Performed By: #### 2 47070 ####[place] [address] MCHC 35 X10 3 Normal 32 - 36 [facility] Comment on above: Performed By: #### 2 13037 ####[place] [address] MCV (RBC) [Entitic vol] 98 fL Normal 80 - 99 [facility] Comment on above: Performed By: #### 2 25526 ####[place] [address] [place] # 1.74 x10EE3/UL High 0.20 - 1.00 [facility] Comment on above: Performed By: #### 2 36453 ####[place] [address] MONOS 11 % High 0 - 10 [facility] Comment on above: Performed By: #### 2 59646 ####[place] [address] MONOS % 10.0 % Normal 0.0 - 10.0 [facility] Comment on above: Performed By: #### 2 80448 ####[place] [address] Morphology Efra (Bld) [Interp] REVIEWED Normal [facility] Comment on above: Performed By: #### 2 65762 ####[facility],[address] [place] [address] 63095 Neut # 14.65 x10EE3/UL High 1.50 - 7.10 [facility] Comment on above: Performed By: #### 2 83235 ####[facility],[address] [place] [address] 79423 Neutrophils/100 WBC (Bld) 84.3 % High 46.0 - 76.0 [facility] Comment on above: Performed By: #### 2 99686 ####[facility],[address] [place] [address] 88552 PLATELET 437 x10EE3/UL Normal 150 - 450 [facility] Comment on above: Performed By: #### 2 39200 ####[facility],[address] [place] [address] 76787 Platelet mean volume (Bld) [Entitic vol] 8.2 fL Normal 6.6 - 10.5 [facility] Comment on above: Result Comment: AUTO MATED DIFFERENTIAL Performed By: #### 2 06308 ####[facility],[address] [place] [address] 49136 RBC 4.47 x 10EE6/UL Normal 4.10 - 5.30 [facility] Comment on above: Performed By: #### 2 56665 ####[facility],[address] [place] [address] 71775 SEGS 83 % High 46 - 76 [facility] Comment on above: Performed By: #### 2 67574 ####[facility],[address] [place] [address] 91653 WBC 17.4 x 10EE3/UL High 4.5 - 10.8 [facility] Comment on above: Performed By: #### 2 38442 ####[facility],[address] [place] [address] 34824 CMP with eGFRon 01-29-2025 AGE 34 years Normal [facility] Comment on above: Performed By: #### 2 71365 ####[facility],[address] [place] [address] 83686 Albumin [Mass/Vol] 4.1 g/dL Normal 3.4 - 5.0 [facility] Comment on above: Performed By: #### 2 56433 ####[facility],[address] [place] [address] 24053 Albumin/Globulin [Mass ratio] 1.4 {ratio} Normal 0.9 - 1.6 [facility] Comment on above: Performed By: #### 2 82865 ####[facility],[address] [place] [address] 22849 ALK PHOS 91 U/L Normal 46 - 116 [facility] Comment on above: Performed By: #### 2 81947 ####[facility],[address] [place] [address] 44613 ALT [Catalytic activity/Vol] 19 U/L Normal 16 - 63 [facility] Comment on above: Performed By: #### 2 47981 ####[facility],[address] [place] [address] 09340 Anion gap [Moles/Vol] 15 mmol/L Normal 10 - 20 [facility] Comment on above: Performed By: #### 2 37556 ####[facility],[address] [place] [address] 93553 AST [Catalytic activity/Vol] 14 U/L Normal 13 - 39 [facility] Comment on above: Performed By: #### 2 69203 ####[facility],[address] [place] [address] 84111 B/C RATIO 10 ratio Normal 0 - 30 [facility] Comment on above: Performed By: #### 2 06367 ####[facility],[address] [place] [address] 42216 Bilirubin [Mass/Vol] 0.4 mg/dL Normal 0.2 - 1.0 [facility] Comment on above: Performed By: #### 2 45322 ####[place] [phone] Calcium [Mass/Vol] 9.4 mg/dL Normal 8.5 - 10.1 [facility] Comment on above: Performed By: #### 2 61426 ####[place] [phone] Chloride [Moles/Vol] 106 mmol/L Normal 98 - 107 [facility] Comment on above: Performed By: #### 2 56470 ####[place] [phone] CMP with eGFR Normal [facility] Comment on above: Result Comment: COMP REHENSIVE METABOLIC PANEL Performed By: #### 2 20914 ####[place] [address] CO2 [Moles/Vol] 24.0 mmol/L Normal 21.0 - 32.0 [facility] Comment on above: Performed By: #### 2 03806 ####[place] [phone] Creatinine [Mass/Vol] 1.01 mg/dL Normal 0.55 - 1.02 [facility] Comment on above: Performed By: #### 2 42455 ####[place] [phone] GFR/1.73 sq M.predicted among non-blacks MDRD (S/P/Bld) [Vol rate/Area] mL/min/{1.73_m2} Normal 60 - 999 [facility] Comment on above: Performed By: #### 2 42185 ####[place] [address] Result Comment: ACCO RDING TO THE NATIONAL KIDNEY DISEASE EDUCATION PROGRAM(NKDE), A NORMAL eGFRIS A VALUE GREATER THAN OR EQUAL TO 60 ML/MIN/1.73 SQ METERS.CHRONIC KIDNEY DISEASE: <60mL/MIN/1.73 SQ METERSKIDNEY FAILURE: <15mL/MIN/1.73 SQ METERSTHIS TEST SHOULD ONLY BE USED FOR PATIENTS 18 YEARS OF AGE AND OLDER. Globulin (S) [Mass/Vol] 3.0 g/dL Normal 1.5 - 3.8 [facility] Comment on above: Performed By: #### 2 67620 ####[facility],[address] [place] [address] 66147 Glucose [Mass/Vol] 166 mg/dL High 74 - 106 [facility] Comment on above: Performed By: #### 2 23409 ####[address] [address] Potassium [Moles/Vol] 3.3 mmol/L Low 3.5 - 5.1 [facility] Comment on above: Performed By: #### 2 46369 ####[facility],[address] [place] [address] 12245 Protein [Mass/Vol] 7.1 g/dL Normal 6.4 - 8.2 [facility] Comment on above: Performed By: #### 2 55812 ####[address] [address] Sodium [Moles/Vol] 142 mmol/L Normal 136 - 145 [facility] Comment on above: Performed By: #### 2 37729 ####[facility],[address] [place] [address] 71068 Urea nitrogen [Mass/Vol] 10 mg/dL Normal 7 - 18 [facility] Comment on above: Performed By: #### 2 21711 ####[address] [address] ED MED ADMINISTRATION DETAIL on 01-29-2025 ED MED ADMINISTRATION DETAIL Normal [facility] ED NURSES CLINICAL NOTEon ED NURSES CLINICAL NOTE Normal [facility] ED ORDER SHEET (CPOE ONLY)on 01-29-2025 ED ORDER SHEET (CPOE ONLY) Normal [facility] ED PHYSICIAN CLINICAL REPORT on 01-29-2025 ED PHYSICIAN CLINICAL REPORT Normal [facility] ED PHYSICIAN DISCHARGE REPOR Ton 01-29-2025 ED PHYSICIAN DISCHARGE REPORT Normal [facility] ED SUPER BILLon 01-29-2025 ED SUPER BILL Normal [facility] ED VISIT SUMMARYon ED VISIT SUMMARY Normal [facility] ED VITALS FLOW SHEETon 01-29 ED VITALS FLOW SHEET Normal [facility] SERUM QUALon 01-29 EXTERNAL QC DONE? YES Normal [facility] Comment on above: Performed By: #### 2 81102 ####[facility],[address] [place] [address] INTERNAL QC PASS Normal [facility] Comment on above: Performed By: #### 2 42820 ####[facility],[address] [place] [address] SER Negative Normal NEGATIVE [facility] Comment on above: Performed By: #### 2 36685 ####[facility],[address] [place] [address] URINALYSISon 01-29-2025 Amorphous NONE Normal [facility] Comment on above: Performed By: #### 2 18320 ####[facility],[address] [place] [address] Bacteria TRACE Normal [facility] Comment on above: Performed By: #### 2 98909 ####[facility],[address] [place] [address] Bilirubin Ql (U) Negative Normal NORMAL: NEGATIVE [facility] Comment on above: Performed By: #### 2 59399 ####[facility],[address] [place] [address] Casts NONE Normal [facility] Comment on above: Performed By: #### 2 27315 ####[facility],[address] [place] [address] Clarity (U) SL. CLOUDY Abnormal NORMAL: CLEAR [facility] Comment on above: Performed By: #### 2 83119 ####[facility],[address] [place], [place] [phone] Color (U) p.yel Normal NORMAL: YELLOW [facility] Comment on above: Performed By: #### 2 49757 ####[facility],[address] [place], [place] [phone] Crystals LM Nom (Urine sed) NONE Normal [facility] Comment on above: Performed By: #### 2 59549 ####[facility],[address] [place], [place] [phone] Epi Cells NONE Normal [facility] Comment on above: Performed By: #### 2 37211 ####[facility],[address] [place], [place] [address] Glucose Ql (U) NORM Normal NORMAL: NORMAL [facility] Comment on above: Performed By: #### 2 74801 ####[facility],[address] [place] [address] 66454 Hemoglobin Ql (U) 150 Abnormal NORMAL: NEGATIVE [facility] Comment on above: Performed By: #### 2 67764 ####[facility],[address] [place] [address] 06719 Ketone Negative Normal NORMAL: NEGATIVE [facility] Comment on above: Performed By: #### 2 74685 ####[facility],[address] [place] [address] 29209 Leukocytes 500 Abnormal NORMAL: NEGATIVE [facility] Comment on above: Performed By: #### 2 25845 ####[facility],[address] [place] [address] 81170 Mucous NONE Normal [facility] Comment on above: Performed By: #### 2 48907 ####[facility],[address] [place] [address] 62778 Nitrite Ql (U) Negative Normal NORMAL: NEGATIVE [facility] [facility] Comment on above: Performed By: #### 2 27437 ####[facility],[address] [place] [address] pH (U) 7 [pH] Normal NORMAL: 5.0-8.0 [facility] Comment on above: Performed By: #### 2 75778 ####[facility],[address] [place] [address] Protein Ql (U) 15 Abnormal NORMAL: NEGATIVE [facility] Comment on above: Performed By: #### 2 12230 ####[facility],[address] [place] [address] Rbc 5-10 Normal 0-3/hpf [facility] Comment on above: Performed By: #### 2 56331 ####[facility],[address] [place] [address] Sp [place] 1.010 Normal NORMAL: 1.010-1.030 [facility] Comment on above: Performed By: #### 2 95409 ####[facility],[address] [place] [address] Specimen Type R Normal [facility] Comment on above: Performed By: #### 2 23128 ####[facility],[address] [place] [address] Urinalysis dipstick W Reflex Microscopic panel (U) SEE BELOW Normal [facility] Comment on above: Result Comment: MICR OSCOPIC Performed By: #### 2 63927 ####[facility],[address] [place], [place] [id number] Urobilinog NORM Normal NORMAL: NORMAL [facility] Comment on above: Performed By: #### 2 94211 ####[facility],[address] [place] [address] Wbc 16-25 Normal 0-5/hpf [facility] Comment on above: Performed By: #### 2 31606 ####[facility],[address] [place] [address] 56462 Yeast 1+ Normal [facility] Comment on above: Performed By: #### 2 12927 ####[facility],[address] [place] [address] 11066 CBC + DIFFon 01-21-2025 Baso # 0.03 x10EE3/UL Normal 0.00 - 0.10 [facility] Comment on above: Performed By: #### 2 99732 ####[facility],[address] [place] [address] 17290 Basophils/100 WBC (Bld) 0.3 % Normal 0.0 - 2.0 [facility] Comment on above: Performed By: #### 2 07986 ####[facility],[address] [place] [address] 59558 CBC + DIFF Normal [facility] Comment on above: Result Comment: CBC- COMPLETE BLOOD COUNT Performed By: #### 2 28965 ####[facility],[address] [place] [address] 20029 EO # 0.06 x10EE3/UL Normal 0.00 - 0.50 [facility] Comment on above: Performed By: #### 2 64420 ####[facility],[address] [place] [address] 70365 Eosinophils/100 WBC (Bld) 0.5 % Normal 0.0 - 7.0 [facility] Comment on above: Performed By: #### 2 32988 ####[facility],[address] [place] [address] 50396 Erythrocyte distribution width (RBC) [Ratio] 13.7 % Normal 12.0 - 15.6 [facility] Comment on above: Performed By: #### 2 14436 ####[facility],[address] [place] [address] 97534 Hematocrit (Bld) [Volume fraction] 43.1 % Normal 34.0 - 46.0 [facility] Comment on above: Performed By: #### 2 43359 ####[facility],[address] [place] [address] 77098 Hemoglobin (Bld) [Mass/Vol] 14.8 g/dL Normal 12.0 - 16.0 [facility] Comment on above: Performed By: #### 2 39407 ####[facility],[address] [place] [address] 70698 Lymph # 1.74 x10EE3/UL Normal 0.80 - 2.80 [facility] Comment on above: Performed By: #### 2 00935 ####[facility],[address] [place] [address] 06253 Lymphocytes/100 WBC (Bld) 12.8 % Low 20.0 - 45.0 [facility] Comment on above: Performed By: #### 2 24295 ####[facility],[address] [place] [address] 26432 MANUAL DIFF N/A Normal [facility] Comment on above: Performed By: #### 2 41563 ####[facility],[address] [place] [address] 92605 MCH (RBC) [Entitic mass] 34 pg High 27 - 33 [facility] Comment on above: Performed By: #### 2 92778 ####[facility],[address] [place] [address] 49699 MCHC 34 X10 3 Normal 32 - 36 [facility] Comment on above: Performed By: #### 2 66550 ####[facility],[address] [place] [address] 44120 MCV (RBC) [Entitic vol] 97 fL Normal 80 - 99 [facility] Comment on above: Performed By: #### 2 88888 ####[facility],[address] [place] [address] 11872 [place] # 1.16 x10EE3/UL High 0.20 - 1.00 [facility] Comment on above: Performed By: #### 2 58302 ####[facility],[address] [place] [address] 39116 MONOS % 8.6 % Normal 0.0 - 10.0 [facility] Comment on above: Performed By: #### 2 32878 ####[facility],[address] [place] [address] 07364 Morphology Efra (Bld) [Interp] N/A Normal [facility] Comment on above: Performed By: #### 2 09740 ####[facility],[address] [place] [address] 86606 Neut # 10.59 x10EE3/UL High 1.50 - 7.10 [facility] Comment on above: Performed By: #### 2 38944 ####[facility],[address] [place] [address] 73196 Neutrophils/100 WBC (Bld) 78.0 % High 46.0 - 76.0 [facility] Comment on above: Performed By: #### 2 66874 ####[facility],[address] [place] [address] 41879 PLATELET 385 x10EE3/UL Normal 150 - 450 [facility] Comment on above: Performed By: #### 2 69437 ####[facility],[address] [place] [address] 74363 Platelet mean volume (Bld) [Entitic vol] 7.3 fL Normal 6.6 - 10.5 [facility] Comment on above: Result Comment: AUTO MATED DIFFERENTIAL Performed By: #### 2 98631 ####[facility],[address] [place] [address] 81596 RBC 4.43 x 10EE6/UL Normal 4.10 - 5.30 [facility] Comment on above: Performed By: #### 2 66130 ####[facility],[address] [place] [address] 31006 WBC 13.6 x 10EE3/UL High 4.5 - 10.8 [facility] Comment on above: Performed By: #### 2 42105 ####[facility],[address] [place] [address] 16201 CMP with eGFRon 01-21-2025 AGE 34 years Normal [facility] Comment on above: Performed By: #### 2 82454 ####[facility],[address] [place] [address] 01987 Albumin [Mass/Vol] 4.1 g/dL Normal 3.4 - 5.0 [facility] Comment on above: Performed By: #### 2 92438 ####[facility],[address] [place] [address] 34560 Albumin/Globulin [Mass ratio] 1.2 {ratio} Normal 0.9 - 1.6 [facility] Comment on above: Performed By: #### 2 34573 ####[facility],[address] [place] [address] 48628 ALK PHOS 77 U/L Normal 46 - 116 [facility] Comment on above: Performed By: #### 2 34114 ####[facility],[address] [place] [address] 39397 ALT [Catalytic activity/Vol] 13 U/L Low 16 - 63 [facility] Comment on above: Performed By: #### 2 51887 ####[facility],[address] [place] [address] 40896 Anion gap [Moles/Vol] 16 mmol/L Normal 10 - 20 [facility] Comment on above: Performed By: #### 2 52257 ####[facility],[address] [place] [address] 49656 AST [Catalytic activity/Vol] 13 U/L Normal 13 - 39 [facility] Comment on above: Performed By: #### 2 87723 ####[facility],[address] [place] [address] 70580 B/C RATIO 15 ratio Normal 0 - 30 [facility] Comment on above: Performed By: #### 2 61244 ####[facility],[address] [place] [address] 84642 Bilirubin [Mass/Vol] 0.4 mg/dL Normal 0.2 - 1.0 [facility] Comment on above: Performed By: #### 2 40154 ####[facility],[address] [place] [address] 04444 Calcium [Mass/Vol] 9.2 mg/dL Normal 8.5 - 10.1 [facility] Comment on above: Performed By: #### 2 00549 ####[facility],[address] [place], [place] [address] Chloride [Moles/Vol] 103 mmol/L Normal 98 - 107 [facility] Comment on above: Performed By: #### 2 09696 ####[facility],[address] [place] [address] CMP with eGFR Normal [facility] Comment on above: Result Comment: COMP REHENSIVE METABOLIC PANEL Performed By: #### 2 56282 ####[facility],[address] [place] [address] 62017 CO2 [Moles/Vol] 23.4 mmol/L Normal 21.0 - 32.0 [facility] Comment on above: Performed By: #### 2 70571 ####[facility],[address] [place] [address] 03498 Creatinine [Mass/Vol] 0.87 mg/dL Normal 0.55 - 1.02 [facility] Comment on above: Performed By: #### 2 98312 ####[facility],[address] [place] [address] 28929 GFR/1.73 sq M.predicted among non-blacks MDRD (S/P/Bld) [Vol rate/Area] mL/min/{1.73_m2} Normal 60 - 999 [facility] Comment on above: Performed By: #### 2 14471 ####[facility],[address] [place] [address] Result Comment: ACCO RDING TO THE NATIONAL KIDNEY DISEASE EDUCATION PROGRAM(NKDE), A NORMAL eGFRIS A VALUE GREATER THAN OR EQUAL TO 60 ML/MIN/1.73 SQ METERS.CHRONIC KIDNEY DISEASE: <60mL/MIN/1.73 SQ METERSKIDNEY FAILURE: <15mL/MIN/1.73 SQ METERSTHIS TEST SHOULD ONLY BE USED FOR PATIENTS 18 YEARS OF AGE AND OLDER. Globulin (S) [Mass/Vol] 3.4 g/dL Normal 1.5 - 3.8 [facility] Comment on above: Performed By: #### 2 17289 ####[facility],[address] [place], [place] [address] Glucose [Mass/Vol] 108 mg/dL High 74 - 106 [facility] Comment on above: Performed By: #### 2 13061 ####[facility],[address] [place], [place] [address] Potassium [Moles/Vol] 3.2 mmol/L Low 3.5 - 5.1 [facility] Comment on above: Performed By: #### 2 17297 ####[facility],[address] [place], [place] [address] Protein [Mass/Vol] 7.5 g/dL Normal 6.4 - 8.2 [facility] Comment on above: Performed By: #### 2 12349 ####[facility],[address] [place] [address] 94578 Sodium [Moles/Vol] 139 mmol/L Normal 136 - 145 [facility] Comment on above: Performed By: #### 2 58449 ####[facility],[address] [place] [address] 55582 Urea nitrogen [Mass/Vol] 13 mg/dL Normal 7 - 18 [facility] Comment on above: Performed By: #### 2 51177 ####[facility],[address] [place] [address] 69597 CORONAVIRUS (SARS) ANTIGEN T ESTon 01-21-2025 EXTERNAL QC DONE? YES Normal [facility] Comment on above: Performed By: #### 2 94794 ####[facility],[address] [place] [address] 80935 INTERNAL CONTROL PASS Normal [facility] Comment on above: Performed By: #### 2 09466 ####[facility],[address] [place] [address] 26032 SARS ANTIGEN Negative Normal NORMAL: NEGATIVE [facility] Comment on above: Performed By: #### 2 86766 ####[facility],[address] [place] [address] 37712 SEND TO IC? NO Normal [facility] Comment on above: Result Comment: SARS -CoV-2THIS TEST IS BEING USED UNDER THE FDA EUA PROCEDURE. THIS ASSAY HAS BEENVALIDATED AT [facility] FOR USE WITH NASAL AND NASOPHARYNGEAL SWABSPECIMENS.INTERPRETIVE [...] BECONSIDERED BY HEALTHCARE PROVIDERS IN CONSULTATION WITH [facility]. Performed By: #### 2 62545 ####[facility],[address] [place] [address] ED MED ADMINISTRATION DETAIL on 01-21-2025 ED MED ADMINISTRATION DETAIL Normal [facility] ED NURSES CLINICAL NOTEon ED NURSES CLINICAL NOTE Normal [facility] ED ORDER SHEET (CPOE ONLY)on 01-21-2025 ED ORDER SHEET (CPOE ONLY) Normal [facility] ED PHYSICIAN CLINICAL REPORT on 01-21-2025 ED PHYSICIAN CLINICAL REPORT Normal [facility] ED PHYSICIAN DISCHARGE REPOR Ton 01-21-2025 ED PHYSICIAN DISCHARGE REPORT Normal [facility] ED SUPER BILLon 01-21-2025 ED SUPER BILL Normal [facility] ED VISIT SUMMARYon ED VISIT SUMMARY Normal [facility] ED VITALS FLOW SHEETon 01-21 ED VITALS FLOW SHEET Normal [facility] INFLUENZA VIRUS RAPID A/Bon 01-21-2025 INFLUENZA VIRUS RAPID A/B Normal [facility] Comment on above: Performed By: #### 2 40922 ####[facility],[address] [place], [place] [address] LACTATEon 01-21-2025 Lactate [Moles/Vol] 1.0 mmol/L Normal 0.4 - 2.0 [facility] Comment on above: Performed By: #### 2 81162 ####[facility],[address] [place] [address] 56866 LIPASEon 01-21-2025 Lipase [Catalytic activity/Vol] 10.0 U/L Low 15.0 - 78.0 [facility] Comment on above: Result Comment: *PLE ASE NOTE THAT RANGES FOR LIPASE HAVE CHANGED OF 10/31/23 DUE TO AN ASSAYUPDATE BY THE HOTEL DESK CLERK.THE NEW ASSAY RANGE IS 6-250 U/L, WITH A REFERENCERANGE OF 16-77 U/L. Performed By: #### 2 95143 ####[facility],[address] [place] [address] SERUM QUALon 01-21 EXTERNAL QC DONE? YES Normal [facility] Comment on above: Performed By: #### 2 66594 ####[facility],[address] [place] [address] INTERNAL QC PASS Normal [facility] Comment on above: Performed By: #### 2 54553 ####[facility],[address] [place] [address] SER Negative Normal NEGATIVE [facility] Comment on above: Performed By: #### 2 15927 ####[facility],[address] [place] [address] IR NEPHROSTOMY EXCHANGEon IR NEPHROSTOMY EXCHANGE Normal [facility] IR PORT REMOVALon 12-22-2024 IR PORT REMOVAL Normal [facility] By: Nell Gillespie on 12-22-2024 Beta HCG ( test) Ql (U) Negative (12/22/24 10:06 AM) [facility] Work Phone: ED MED ADMINISTRATION DETAIL on 12-11-2024 ED MED ADMINISTRATION DETAIL Normal [facility] ED NURSES CLINICAL NOTEon ED NURSES CLINICAL NOTE Normal [facility] ED ORDER SHEET (CPOE ONLY)on 12-11-2024 ED ORDER SHEET (CPOE ONLY) Normal [facility] ED PHYSICIAN CLINICAL REPORT on 12-11-2024 ED PHYSICIAN CLINICAL REPORT Normal [facility] ED PHYSICIAN DISCHARGE REPOR Ton 12-11-2024 ED PHYSICIAN DISCHARGE REPORT Normal [facility] ED SUPER BILLon 12-11-2024 ED SUPER BILL Normal [facility] ED VISIT SUMMARYon ED VISIT SUMMARY Normal [facility] ED VITALS FLOW SHEETon 12-11 ED VITALS FLOW SHEET Normal [facility] CBC + DIFFon 12-10-2024 Baso # 0.04 x10EE3/UL Normal 0.00 - 0.10 [facility] Comment on above: Performed By: #### 2 94196 ####[facility],[address] [place] [address] Basophils/100 WBC (Bld) 0.3 % Normal 0.0 - 2.0 [facility] Comment on above: Performed By: #### 2 47441 ####[facility],[address] [place] [address] CBC + DIFF Normal [facility] Comment on above: Result Comment: CBC- COMPLETE BLOOD COUNT Performed By: #### 2 88463 ####[facility],[address] [place] [address] EO # 0.18 x10EE3/UL Normal 0.00 - 0.50 [facility] Comment on above: Performed By: #### 2 46002 ####[facility],[address] [place] [address] Eosinophils/100 WBC (Bld) 1.6 % Normal 0.0 - 7.0 [facility] Comment on above: Performed By: #### 2 26528 ####[facility],[address] [place] [address] Erythrocyte distribution width (RBC) [Ratio] 14.4 % Normal 12.0 - 15.6 [facility] Comment on above: Performed By: #### 2 29115 ####[facility],[address] [place] [address] Hematocrit (Bld) [Volume fraction] 42.6 % Normal 34.0 - 46.0 [facility] Comment on above: Performed By: #### 2 53902 ####[facility],[address] [place] [address] Hemoglobin (Bld) [Mass/Vol] 14.4 g/dL Normal 12.0 - 16.0 [facility] Comment on above: Performed By: #### 2 44350 ####[facility],[address] [place] [address] Lymph # 1.79 x10EE3/UL Normal 0.80 - 2.80 [facility] Comment on above: Performed By: #### 2 46957 ####[facility],[address] [place] [address] Lymphocytes/100 WBC (Bld) 15.3 % Low 20.0 - 45.0 [facility] Comment on above: Performed By: #### 2 38291 ####[facility],[address] [place] [address] MANUAL DIFF N/A Normal [facility] Comment on above: Performed By: #### 2 58328 ####[facility],[address] [place], [place] [id number] MCH (RBC) [Entitic mass] 33 pg Normal 27 - 33 [facility] Comment on above: Performed By: #### 2 36101 ####[facility],[address] [place] [address] 61776 MCHC 34 X10 3 Normal 32 - 36 [facility] Comment on above: Performed By: #### 2 85775 ####[facility],[address] [place] [address] 93449 MCV (RBC) [Entitic vol] 98 fL Normal 80 - 99 [facility] Comment on above: Performed By: #### 2 62698 ####[facility],[address] [place] [address] 17220 [place] # 0.96 x10EE3/UL Normal 0.20 - 1.00 [facility] Comment on above: Performed By: #### 2 49425 ####[facility],[address] [place] [address] 93658 MONOS % 8.2 % Normal 0.0 - 10.0 [facility] Comment on above: Performed By: #### 2 34380 ####[facility],[address] [place] [address] 91315 Morphology Efra (Bld) [Interp] N/A Normal [facility] Comment on above: Performed By: #### 2 49522 ####[facility],[address] [place] [address] 16726 Neut # 8.76 x10EE3/UL High 1.50 - 7.10 [facility] Comment on above: Performed By: #### 2 70914 ####[facility],[address] [place] [address] 80187 Neutrophils/100 WBC (Bld) 74.6 % Normal 46.0 - 76.0 [facility] Comment on above: Performed By: #### 2 63258 ####[facility],[address] [place] [address] 26737 PLATELET 444 x10EE3/UL Normal 150 - 450 [facility] Comment on above: Performed By: #### 2 64479 ####[facility],[address] [place] [address] 34675 Platelet mean volume (Bld) [Entitic vol] 7.1 fL Normal 6.6 - 10.5 [facility] Comment on above: Result Comment: AUTO MATED DIFFERENTIAL Performed By: #### 2 92228 ####[facility],[address] [place] [address] 18332 RBC 4.35 x 10EE6/UL Normal 4.10 - 5.30 [facility] Comment on above: Performed By: #### 2 84379 ####[facility],[address] [place] [address] 64584 WBC 11.7 x 10EE3/UL High 4.5 - 10.8 [facility] Comment on above: Performed By: #### 2 21143 ####[facility],[address] [place] [address] 05171 CMP with eGFRon 12-10-2024 AGE 33 years Normal [facility] Comment on above: Performed By: #### 2 90319 ####[facility],[address] [place] [address] 67903 Albumin [Mass/Vol] 4.2 g/dL Normal 3.4 - 5.0 [facility] Comment on above: Performed By: #### 2 06493 ####[facility],[address] [place] [address] 79175 Albumin/Globulin [Mass ratio] 1.3 {ratio} Normal 0.9 - 1.6 [facility] Comment on above: Performed By: #### 2 00224 ####[facility],[address] [place] [address] 83618 ALK PHOS 82 U/L Normal 46 - 116 [facility] Comment on above: Performed By: #### 2 20315 ####[facility],[address] [place] [address] 40774 ALT [Catalytic activity/Vol] 12 U/L Low 16 - 63 [facility] Comment on above: Performed By: #### 2 61761 ####[facility],[address] [place] [address] 07975 Anion gap [Moles/Vol] 14 mmol/L Normal 10 - 20 [facility] Comment on above: Performed By: #### 2 48568 ####[facility],[address] [place] [address] 30539 AST [Catalytic activity/Vol] 14 U/L Normal 13 - 39 [facility] Comment on above: Performed By: #### 2 24786 ####[facility],[address] [place] [address] 94667 B/C RATIO 11 ratio Normal 0 - 30 [facility] Comment on above: Performed By: #### 2 39732 ####[facility],[address] [place] [address] 63200 Bilirubin [Mass/Vol] 0.4 mg/dL Normal 0.2 - 1.0 [facility] Comment on above: Performed By: #### 2 25555 ####[facility],[address] [place] [address] 05660 Calcium [Mass/Vol] 9.1 mg/dL Normal 8.5 - 10.1 [facility] Comment on above: Performed By: #### 2 85007 ####[facility],[address] [place] [address] 09249 Chloride [Moles/Vol] 102 mmol/L Normal 98 - 107 [facility] Comment on above: Performed By: #### 2 01536 ####[facility],[address] [place] [address] 16294 CMP with eGFR Normal [facility] Comment on above: Result Comment: COMP REHENSIVE METABOLIC PANEL Performed By: #### 2 52339 ####[facility],[address] [place] [address] 84921 CO2 [Moles/Vol] 28.0 mmol/L Normal 21.0 - 32.0 [facility] Comment on above: Performed By: #### 2 11967 ####[facility],[address] [place] [address] 17674 Creatinine [Mass/Vol] 1.09 mg/dL High 0.55 - 1.02 [facility] Comment on above: Performed By: #### 2 16350 ####[facility],[address] [place] [address] 21037 eGFR 57 ML/MINUTE Low 60 - 999 [facility] Comment on above: Performed By: #### 2 16429 ####[facility],[address] [place] [address] 58801 GFR/1.73 sq M.predicted among non-blacks MDRD (S/P/Bld) [Vol rate/Area] mL/min/{1.73_m2} Normal 60 - 999 [facility] Comment on above: Result Comment: ACCO RDING TO THE NATIONAL KIDNEY DISEASE EDUCATION PROGRAM(NKDE), A NORMAL eGFRIS A VALUE GREATER THAN OR EQUAL TO 60 ML/MIN/1.73 SQ METERS.CHRONIC KIDNEY DISEASE: <60mL/MIN/1.73 SQ METERSKIDNEY FAILURE: <15mL/MIN/1.73 SQ METERSTHIS TEST SHOULD ONLY BE USED FOR PATIENTS 18 YEARS OF AGE AND OLDER. Performed By: #### 2 17786 ####[facility],[address] [place] [address] 07300 Globulin (S) [Mass/Vol] 3.2 g/dL Normal 1.5 - 3.8 [facility] Comment on above: Performed By: #### 2 19151 ####[address] [address] Glucose [Mass/Vol] 91 mg/dL Normal 74 - 106 [facility] Comment on above: Performed By: #### 2 48716 ####[facility],[address] [place] [address] 04840 Potassium [Moles/Vol] 3.7 mmol/L Normal 3.5 - 5.1 [facility] Comment on above: Performed By: #### 2 31124 ####[facility],[address] [place] [address] 01993 Protein [Mass/Vol] 7.4 g/dL Normal 6.4 - 8.2 [facility] Comment on above: Performed By: #### 2 82794 ####[facility],[address] [place] [address] 37131 Sodium [Moles/Vol] 140 mmol/L Normal 136 - 145 [facility] Comment on above: Performed By: #### 2 17355 ####[facility],[address] [place] [address] 40330 Urea nitrogen [Mass/Vol] 12 mg/dL Normal 7 - 18 [facility] Comment on above: Performed By: #### 2 68402 ####[facility],[address] [place] [address] CPKon 12-10-2024 CPK 86 U/L Normal 26 - 192 [facility] Comment on above: Performed By: #### 2 13118 ####[facility],[address] [place] [address] CT ABDOMEN/PELVIS Won 2024 CT ABDOMEN/PELVIS W Normal [facility] SERUM QUALon 12-10 EXTERNAL QC DONE? YES Normal [facility] Comment on above: Performed By: #### 2 02126 ####[facility],[address] [place] [address] INTERNAL QC PASS Normal [facility] Comment on above: Performed By: #### 2 44864 ####[facility],[address] [place] [address] SER Negative Normal NEGATIVE [facility] Comment on above: Performed By: #### 2 25629 ####[facility],[address] [place], [place] [id number] URINALYSISon 12-10-2024 Bilirubin Ql (U) Negative Normal NORMAL: NEGATIVE [facility] Comment on above: Performed By: #### 2 67826 ####[facility],[address] [place], [place] [id number] Clarity (U) clear Normal NORMAL: CLEAR [facility] Comment on above: Performed By: #### 2 75485 ####[facility],[address] [place] [address] 86390 Color (U) yellow Normal NORMAL: YELLOW [facility] Comment on above: Performed By: #### 2 89668 ####[facility],[address] [place] [address] 45194 Glucose Ql (U) NORM Normal NORMAL: NORMAL [facility] Comment on above: Performed By: #### 2 38151 ####[facility],[address] [place] [address] 33046 Hemoglobin Ql (U) Negative Normal NORMAL: NEGATIVE [facility] Comment on above: Performed By: #### 2 35259 ####[facility],[address] [place] [address] 66774 Ketone Negative Normal NORMAL: NEGATIVE [facility] Comment on above: Performed By: #### 2 12347 ####[facility],[address] [place], [place] [address] Leukocytes Negative Normal NORMAL: NEGATIVE [facility] Comment on above: Performed By: #### 2 87602 ####[facility],[address] [place], [place] [address] Nitrite Ql (U) Negative Normal NORMAL: NEGATIVE [facility] Comment on above: Performed By: #### 2 63338 ####[facility],[address] [place] [address] pH (U) 7 [pH] Normal NORMAL: 5.0-8.0 [facility] Comment on above: Performed By: #### 2 11905 ####[facility],[address] [place], [place] [address] Protein Ql (U) Negative Normal NORMAL: NEGATIVE [facility] Comment on above: Performed By: #### 2 84640 ####[facility],[address] [place] [address] Sp [place] 1.015 Normal NORMAL: 1.010-1.030 [facility] Comment on above: Performed By: #### 2 07110 ####[facility],[address] [place] [address] Specimen Type R Normal [facility] Comment on above: Performed By: #### 2 27922 ####[facility],[address] [place] [address] Urinalysis dipstick W Reflex Microscopic panel (U) NOT INDICATED Normal [facility] Comment on above: Performed By: #### 2 82218 ####[facility],[address] [place], [place] [phone] Urobilinog NORM Normal NORMAL: NORMAL [facility] Comment on above: Performed By: #### 2 11581 ####[facility],[address] [place] [address] [employer] Cytology Reporton 2024 [employer] Cytology Report Normal [facility] HPVon 11-18-2024 HPV Interp Normal See Interp HPVN [facility] Comment on above: Order Comment: Order placed by AP_HPV_ORDER rule from [id number] Result Comment: High Risk HPV Typing: NEGATIVEHPV [...] Performed By: #### H PV ####[place] [address] HPV Source Cervix Normal [facility] Comment on above: Order Comment: Order placed by AP_HPV_ORDER rule from [id number] Performed By: #### H PV ####[place] [address] CBLon 11-11-2024 CBL Normal [facility] URINE CULTURE [CCL]on 2024 Bacteria identified Cx Nom (U) Normal [facility] Comment on above: Performed By: #### 2 29271 ####[facility],[address] [place] [address] 92394 CBC + DIFFon 11-06-2024 Baso # 0.03 x10EE3/UL Normal 0.00 - 0.10 [facility] Comment on above: Performed By: #### 2 84402 ####[facility],[address] [place] [address] 03679 Basophils/100 WBC (Bld) 0.3 % Normal 0.0 - 2.0 [facility] Comment on above: Performed By: #### 2 08206 ####[facility],[address] [place] [address] 55084 CBC + DIFF Normal [facility] Comment on above: Result Comment: CBC- COMPLETE BLOOD COUNT Performed By: #### 2 13691 ####[facility],[address] [place] [address] 45470 EO # 0.15 x10EE3/UL Normal 0.00 - 0.50 [facility] Comment on above: Performed By: #### 2 81623 ####[facility],[address] [place] [address] 05456 Eosinophils/100 WBC (Bld) 1.5 % Normal 0.0 - 7.0 [facility] Comment on above: Performed By: #### 2 33899 ####[facility],[address] [place] [address] 87813 Erythrocyte distribution width (RBC) [Ratio] 14.8 % Normal 12.0 - 15.6 [facility] Comment on above: Performed By: #### 2 77767 ####[facility],[address] [place] [address] 42425 Hematocrit (Bld) [Volume fraction] 40.4 % Normal 34.0 - 46.0 [facility] Comment on above: Performed By: #### 2 71763 ####[facility],[address] [place] [address] 19966 Hemoglobin (Bld) [Mass/Vol] 13.9 g/dL Normal 12.0 - 16.0 [facility] Comment on above: Performed By: #### 2 34405 ####[facility],[address] [place] [address] Lymph # 2.56 x10EE3/UL Normal 0.80 - 2.80 [facility] Comment on above: Performed By: #### 2 91909 ####[facility],[address] [place] [address] Lymphocytes/100 WBC (Bld) 25.3 % Normal 20.0 - 45.0 [facility] Comment on above: Performed By: #### 2 56641 ####[facility],[address] [place] [address] MANUAL DIFF N/A Normal [facility] Comment on above: Performed By: #### 2 73631 ####[facility],[address] [place] [address] MCH (RBC) [Entitic mass] 33 pg Normal 27 - 33 [facility] Comment on above: Performed By: #### 2 11098 ####[facility],[address] [place] [address] MCHC 34 X10 3 Normal 32 - 36 [facility] Comment on above: Performed By: #### 2 29138 ####[facility],[address] [place], [place] [address] MCV (RBC) [Entitic vol] 97 fL Normal 80 - 99 [facility] Comment on above: Performed By: #### 2 42234 ####[facility],[address] [place] [address] 22768 [place] # 0.91 x10EE3/UL Normal 0.20 - 1.00 [facility] Comment on above: Performed By: #### 2 32621 ####[facility],[address] [place] [address] MONOS % 9.0 % Normal 0.0 - 10.0 [facility] Comment on above: Performed By: #### 2 12746 ####[facility],[address] [place] [address] 07314 Morphology Efra (Bld) [Interp] N/A Normal [facility] Comment on above: Performed By: #### 2 52824 ####[facility],[address] [place] [address] 98633 Neut # 6.45 x10EE3/UL Normal 1.50 - 7.10 [facility] Comment on above: Performed By: #### 2 66460 ####[facility],[address] [place] [address] 10299 Neutrophils/100 WBC (Bld) 63.8 % Normal 46.0 - 76.0 [facility] Comment on above: Performed By: #### 2 81183 ####[facility],[address] [place] [address] 73974 PLATELET 457 x10EE3/UL High 150 - 450 [facility] Comment on above: Performed By: #### 2 55744 ####[facility],[address] [place] [address] 43146 Platelet mean volume (Bld) [Entitic vol] 6.6 fL Normal 6.6 - 10.5 [facility] Comment on above: Result Comment: AUTO MATED DIFFERENTIAL Performed By: #### 2 42994 ####[facility],[address] [place] [address] 98542 RBC 4.15 x 10EE6/UL Normal 4.10 - 5.30 [facility] Comment on above: Performed By: #### 2 31968 ####[facility],[address] [place] [address] 90692 WBC 10.1 x 10EE3/UL Normal 4.5 - 10.8 [facility] Comment on above: Performed By: #### 2 16274 ####[facility],[address] [place] [address] 84602 CHEST 1 VIEWon 11-06-2024 CHEST 1 VIEW Normal [facility] CMP with eGFRon 11-06-2024 AGE 33 years Normal [facility] Comment on above: Performed By: #### 2 47017 ####[facility],[address] [place] [address] 19690 Albumin [Mass/Vol] 3.9 g/dL Normal 3.4 - 5.0 [facility] Comment on above: Performed By: #### 2 22279 ####[facility],[address] [place] [address] 96887 Albumin/Globulin [Mass ratio] 1.1 {ratio} Normal 0.9 - 1.6 [facility] Comment on above: Performed By: #### 2 78326 ####[facility],[address] [place] [address] 43152 ALK PHOS 81 U/L Normal 46 - 116 [facility] Comment on above: Performed By: #### 2 89486 ####[facility],[address] [place] [address] 76992 ALT [Catalytic activity/Vol] 13 U/L Low 16 - 63 [facility] Comment on above: Performed By: #### 2 51283 ####[facility],[address] [place] [address] 06209 Anion gap [Moles/Vol] 15 mmol/L Normal 10 - 20 [facility] Comment on above: Performed By: #### 2 74171 ####[facility],[address] [place] [address] 56463 AST [Catalytic activity/Vol] 12 U/L Low 13 - 39 [facility] Comment on above: Performed By: #### 2 68664 ####[facility],[address] [place] [address] 10505 B/C RATIO 6 ratio Normal 0 - 30 [facility] Comment on above: Performed By: #### 2 47357 ####[facility],[address] [place] [address] 90503 Bilirubin [Mass/Vol] 0.5 mg/dL Normal 0.2 - 1.0 [facility] Comment on above: Performed By: #### 2 70463 ####[facility],[address] [place] [address] 19573 Calcium [Mass/Vol] 9.1 mg/dL Normal 8.5 - 10.1 [facility] Comment on above: Performed By: #### 2 51264 ####[facility],[address] [place] [address] 16774 Chloride [Moles/Vol] 101 mmol/L Normal 98 - 107 [facility] Comment on above: Performed By: #### 2 61177 ####[facility],[address] [place] [address] 50721 CMP with eGFR Normal [facility] Comment on above: Result Comment: COMP REHENSIVE METABOLIC PANEL Performed By: #### 2 60269 ####[facility],[address] [place] [address] 32905 CO2 [Moles/Vol] 28.6 mmol/L Normal 21.0 - 32.0 [facility] Comment on above: Performed By: #### 2 20439 ####[facility],[address] [place] [address] 78856 Creatinine [Mass/Vol] 1.08 mg/dL High 0.55 - 1.02 [facility] Comment on above: Performed By: #### 2 96749 ####[facility],[address] [place] [address] 89798 eGFR 58 ML/MINUTE Low 60 - 999 [facility] Comment on above: Performed By: #### 2 93404 ####[facility],[address] [place] [address] 42867 GFR/1.73 sq M.predicted among non-blacks MDRD (S/P/Bld) [Vol rate/Area] mL/min/{1.73_m2} Normal 60 - 999 [facility] Comment on above: Result Comment: ACCO RDING TO THE NATIONAL KIDNEY DISEASE EDUCATION PROGRAM(NKDE), A NORMAL eGFRIS A VALUE GREATER THAN OR EQUAL TO 60 ML/MIN/1.73 SQ METERS.CHRONIC KIDNEY DISEASE: <60mL/MIN/1.73 SQ METERSKIDNEY FAILURE: <15mL/MIN/1.73 SQ METERSTHIS TEST SHOULD ONLY BE USED FOR PATIENTS 18 YEARS OF AGE AND OLDER. Performed By: #### 2 51531 ####[facility],[address] [place] [address] 75729 Globulin (S) [Mass/Vol] 3.5 g/dL Normal 1.5 - 3.8 [facility] Comment on above: Performed By: #### 2 72332 ####[facility],[address] [place] [address] 98567 Glucose [Mass/Vol] 79 mg/dL Normal 74 - 106 [facility] Comment on above: Performed By: #### 2 74746 ####[facility],[address] [place] [address] 14482 Potassium [Moles/Vol] 3.9 mmol/L Normal 3.5 - 5.1 [facility] Comment on above: Performed By: #### 2 56653 ####[facility],[address] [place] [address] 97810 Protein [Mass/Vol] 7.4 g/dL Normal 6.4 - 8.2 [facility] Comment on above: Performed By: #### 2 56715 ####[facility],[address] [place] [address] 38781 Sodium [Moles/Vol] 141 mmol/L Normal 136 - 145 [facility] Comment on above: Performed By: #### 2 01262 ####[facility],[address] [place] [address] 44708 Urea nitrogen [Mass/Vol] 7 mg/dL Normal 7 - 18 [facility] Comment on above: Performed By: #### 2 88610 ####[facility],[address] [place], [place] [address] CT ABDOMEN/PELVIS Won 2024 CT ABDOMEN/PELVIS W Normal [facility] CULTURE BLOOD [VANESSA]on Microscopic examination of blood, culture CULTURE BLOOD [VANESSA] _BLOOD CULTURE_ GO TO [employer] REPORTS AND ATTACHMENTS FOR SCANNED REPORT 11/12/[id number] TE Normal [facility] Comment on above: Performed By: #### 2 78348 ####[facility],[address] [place] [address] Microscopic examination of blood, culture CULTURE BLOOD [VANESSA] _BLOOD CULTURE_ GO TO [employer] REPORTS AND ATTACHMENTS FOR SCANNED REPORT 11/12/[id number].[id number] TE Normal [facility] Comment on above: Performed By: #### 2 23821 ####[facility],[address] [place], [place] [address] ED MED ADMINISTRATION DETAIL on 11-06-2024 ED MED ADMINISTRATION DETAIL Normal [facility] ED NURSES CLINICAL NOTEon ED NURSES CLINICAL NOTE Normal [facility] ED ORDER SHEET (CPOE ONLY)on 11-06-2024 ED ORDER SHEET (CPOE ONLY) Normal [facility] ED PHYSICIAN CLINICAL REPORT on 11-06-2024 ED PHYSICIAN CLINICAL REPORT Normal [facility] ED PHYSICIAN DISCHARGE REPOR Ton 11-06-2024 ED PHYSICIAN DISCHARGE REPORT Normal [facility] ED SUPER BILLon 11-06-2024 ED SUPER BILL Normal [facility] ED VISIT SUMMARYon ED VISIT SUMMARY Normal [facility] ED VITALS FLOW SHEETon 11-06 ED VITALS FLOW SHEET Normal [facility] LACTATEon 11-06-2024 Lactate [Moles/Vol] 1.1 mmol/L Normal 0.4 - 2.0 [facility] Comment on above: Performed By: #### 2 29785 ####[facility],[address] [place], [place] [id number] URINEon 11-06-2024 Beta HCG ( test) Ql (U) Negative Normal NEGATIVE [facility] Comment on above: Performed By: #### 2 55439 ####[facility],[address] [place] [address] EXTERNAL QC DONE? YES Normal [facility] Comment on above: Performed By: #### 2 76241 ####[facility],[address] [place] [address] INTERNAL QC PASS Normal [facility] Comment on above: Performed By: #### 2 22402 ####[facility],[address] [place] [address] TROPONINon 11-06-2024 HS TROPONIN <4.0 Normal 0.0 - 51.4 [facility] Comment on above: Performed By: #### 2 06410 ####[facility],[address] [place] [address] URINALYSISon 11-06-2024 Amorphous NONE Normal [facility] Comment on above: Performed By: #### 2 44706 ####[facility],[address] [place] [address] Bacteria TRACE Normal [facility] Comment on above: Performed By: #### 2 71756 ####[facility],[address] [place] [address] Bilirubin Ql (U) Negative Normal NORMAL: NEGATIVE [facility] Comment on above: Performed By: #### 2 61940 ####[facility],[address] [place] [address] Casts NONE Normal [facility] Comment on above: Performed By: #### 2 99688 ####[facility],[address] [place] [address] Clarity (U) SL. CLOUDY Abnormal NORMAL: CLEAR [facility] Comment on above: Performed By: #### 2 49249 ####[facility],[address] [place] [address] 02990 Color (U) yellow Normal NORMAL: YELLOW [facility] Comment on above: Performed By: #### 2 06916 ####[facility],[address] [place] [address] 55603 Crystals LM Nom (Urine sed) NONE Normal [facility] Comment on above: Performed By: #### 2 53597 ####[facility],[address] [place] [address] 04611 Epi Cells OCC Normal [facility] Comment on above: Performed By: #### 2 62947 ####[facility],[address] [place], [place] [address] Glucose Ql (U) NORM Normal NORMAL: NORMAL [facility] Comment on above: Performed By: #### 2 42271 ####[facility],[address] [place], [place] [address] Hemoglobin Ql (U) 10 Abnormal NORMAL: NEGATIVE [facility] Comment on above: Performed By: #### 2 65947 ####[facility],[address] [place] [address] 74395 Ketone Negative Normal NORMAL: NEGATIVE [facility] Comment on above: Performed By: #### 2 99958 ####[facility],[address] [place] [address] 79638 Leukocytes Negative Normal NORMAL: NEGATIVE [facility] Comment on above: Performed By: #### 2 35010 ####[facility],[address] [place] [address] 21442 Mucous NONE Normal [facility] Comment on above: Performed By: #### 2 45957 ####[facility],[address] [place] [address] 46674 Nitrite Ql (U) Negative Normal NORMAL: NEGATIVE [facility] Comment on above: Performed By: #### 2 13349 ####[facility],[address] [place] [address] pH (U) 6 [pH] Normal NORMAL: 5.0-8.0 [facility] Comment on above: Result Comment: UNAB LE TO PERFORM PROTEIN Performed By: #### 2 22179 ####[facility],[address] [place] [address] Rbc 0-5 Normal 0-3/hpf [facility] Comment on above: Performed By: #### 2 21708 ####[facility],[address] [place] [address] Sp [place] 1.020 Normal NORMAL: 1.010-1.030 [facility] Comment on above: Performed By: #### 2 11455 ####[facility],[address] [place] [address] Specimen Type R Normal [facility] Comment on above: Performed By: #### 2 28528 ####[facility],[address] [place] [address] Urinalysis dipstick W Reflex Microscopic panel (U) SEE BELOW Normal [facility] Comment on above: Result Comment: MICR OSCOPIC Performed By: #### 2 15371 ####[facility],[address] [place] [address] Urobilinog NORM Normal NORMAL: NORMAL [facility] Comment on above: Performed By: #### 2 43875 ####[facility],[address] [place] [address] Wbc NONE Normal 0-5/hpf [facility] Comment on above: Performed By: #### 2 87546 ####[facility],[address] [place] [address] Yeast NONE Normal [facility] Comment on above: Performed By: #### 2 95275 ####[facility],[address] [place] [address] Amorphous NONE Normal [facility] Comment on above: Performed By: #### 2 08438 ####[facility],[address] [place] [address] 53113 Bacteria 4+ Normal [facility] Comment on above: Performed By: #### 2 53623 ####[facility],[address] [place] [address] 35662 Bilirubin Ql (U) Negative Normal NORMAL: NEGATIVE [facility] Comment on above: Performed By: #### 2 75783 ####[facility],[address] [place] [address] 11866 Casts NONE Normal [facility] Comment on above: Performed By: #### 2 36674 ####[facility],[address] [place] [address] 08454 Clarity (U) CLOUDY Abnormal NORMAL: CLEAR [facility] Comment on above: Performed By: #### 2 44405 ####[facility],[address] [place], [place] [address] Color (U) orange Normal NORMAL: YELLOW [facility] Comment on above: Performed By: #### 2 48214 ####[facility],[address] [place] [address] 06466 Crystals LM Nom (Urine sed) NONE Normal [facility] Comment on above: Performed By: #### 2 27867 ####[facility],[address] [place] [address] 02643 Epi Cells NONE Normal [facility] Comment on above: Performed By: #### 2 15955 ####[facility],[address] [place] [address] 61233 Glucose Ql (U) NORM Normal NORMAL: NORMAL [facility] Comment on above: Performed By: #### 2 49244 ####[facility],[address] [place] [address] 10343 Hemoglobin Ql (U) 250 Abnormal NORMAL: NEGATIVE [facility] Comment on above: Performed By: #### 2 01212 ####[facility],[address] [place] [address] 07415 Ketone Negative Normal NORMAL: NEGATIVE [facility] Comment on above: Performed By: #### 2 23249 ####[facility],[address] [place] [address] 11355 Leukocytes 500 Abnormal NORMAL: NEGATIVE [facility] Comment on above: Performed By: #### 2 23858 ####[facility],[address] [place] [address] 31512 Mucous NONE Normal [facility] Comment on above: Performed By: #### 2 43894 ####[facility],[address] [place] [address] 70141 Nitrite Ql (U) Positive Normal NORMAL: NEGATIVE [facility] Comment on above: Performed By: #### 2 60271 ####[facility],[address] [place], [place] [address] pH (U) 7 [pH] Normal NORMAL: 5.0-8.0 [facility] Comment on above: Result Comment: UNAB LE TO PERFORM PROTEIN Performed By: #### 2 13706 ####[facility],[address] [place] [address] 56713 Rbc TNTC Normal 0-3/hpf [facility] Comment on above: Performed By: #### 2 12839 ####[facility],[address] [place] [address] 93894 Sp [place] 1.010 Normal NORMAL: 1.010-1.030 [facility] Comment on above: Performed By: #### 2 04962 ####[facility],[address] [place] [address] 14623 Specimen Type R Normal [facility] Comment on above: Performed By: #### 2 99425 ####[facility],[address] [place], [place] [address] Urinalysis dipstick W Reflex Microscopic panel (U) SEE BELOW Normal [facility] Comment on above: Result Comment: MICR OSCOPIC Performed By: #### 2 16314 ####[facility],[address] [place], [place] [address] Urobilinog NORM Normal NORMAL: NORMAL [facility] Comment on above: Performed By: #### 2 61057 ####[facility],[address] [place] [address] 41343 WBC (U) [#/Vol] /uL Normal 0-5/hpf [facility] Comment on above: Performed By: #### 2 42746 ####[facility],[address] [place] [address] 37260 Yeast NONE Normal [facility] Comment on above: Performed By: #### 2 00684 ####[facility],[address] [place] [address] IR NEPHROSTOMY EXCHANGEon IR NEPHROSTOMY EXCHANGE Normal [facility] ED MED ADMINISTRATION DETAIL on 09-04-2024 ED MED ADMINISTRATION DETAIL Normal [facility] ED NURSES CLINICAL NOTEon ED NURSES CLINICAL NOTE Normal [facility] ED ORDER SHEET (CPOE ONLY)on 09-04-2024 ED ORDER SHEET (CPOE ONLY) Normal [facility] ED PHYSICIAN CLINICAL REPORT on 09-04-2024 ED PHYSICIAN CLINICAL REPORT Normal [facility] ED PHYSICIAN DISCHARGE REPOR Ton 09-04-2024 ED PHYSICIAN DISCHARGE REPORT Normal [facility] ED SUPER BILLon 09-04-2024 ED SUPER BILL Normal [facility] ED VISIT SUMMARYon ED VISIT SUMMARY Normal [facility] ED VITALS FLOW SHEETon 09-04 ED VITALS FLOW SHEET Normal [facility] BMP with eGFRon 08-31-2024 AGE 33 years Normal [facility] Comment on above: Performed By: #### 2 70962 ####[facility],[address] [place], [place] [phone] Anion gap [Moles/Vol] 17 mmol/L Normal 10 - 20 [facility] Comment on above: Performed By: #### 2 32519 ####[facility],[address] [place] [address] 05597 BMP with eGFR Normal [facility] Comment on above: Result Comment: BASI C METABOLIC PANEL Performed By: #### 2 12429 ####[facility],[address] [place] [address] 41943 Calcium [Mass/Vol] 8.3 mg/dL Low 8.5 - 10.1 [facility] Comment on above: Performed By: #### 2 49723 ####[facility],[address] [place] [address] 03511 Chloride [Moles/Vol] 109 mmol/L High 98 - 107 [facility] Comment on above: Performed By: #### 2 12759 ####[facility],[address] [place] [address] 56787 CO2 [Moles/Vol] 20.7 mmol/L Low 21.0 - 32.0 [facility] Comment on above: Performed By: #### 2 90896 ####[facility],[address] [place] [address] 76758 Creatinine [Mass/Vol] 0.96 mg/dL Normal 0.55 - 1.02 [facility] Comment on above: Performed By: #### 2 76912 ####[facility],[address] [place] [address] 43569 GFR/1.73 sq M.predicted among non-blacks MDRD (S/P/Bld) [Vol rate/Area] mL/min/{1.73_m2} Normal 60 - 999 [facility] Comment on above: Performed By: #### 2 78207 ####[facility],[address] [place] [address] 48096 Result Comment: ACCO RDING TO THE NATIONAL KIDNEY DISEASE EDUCATION PROGRAM(NKDE), A NORMAL eGFRIS A VALUE GREATER THAN OR EQUAL TO 60 ML/MIN/1.73 SQ METERS.CHRONIC KIDNEY DISEASE: <60mL/MIN/1.73 SQ METERSKIDNEY FAILURE: <15mL/MIN/1.73 SQ METERSTHIS TEST SHOULD ONLY BE USED FOR PATIENTS 18 YEARS OF AGE AND OLDER. Glucose [Mass/Vol] 124 mg/dL High 74 - 106 [facility] Comment on above: Performed By: #### 2 52349 ####[facility],[address] [place] [address] 49404 Potassium [Moles/Vol] 3.5 mmol/L Normal 3.5 - 5.1 [facility] Comment on above: Performed By: #### 2 34831 ####[facility],[address] [place] [address] 97789 Sodium [Moles/Vol] 143 mmol/L Normal 136 - 145 [facility] Comment on above: Performed By: #### 2 11513 ####[facility],[address] [place] [address] 00754 Urea nitrogen [Mass/Vol] 8 mg/dL Normal 7 - 18 [facility] Comment on above: Performed By: #### 2 57943 ####[facility],[address] [place] [address] 94291 AGE 33 years Normal [facility] Comment on above: Performed By: #### 2 89141 ####[facility],[address] [place] [address] 79952 Anion gap [Moles/Vol] 18 mmol/L Normal 10 - 20 [facility] Comment on above: Performed By: #### 2 93109 ####[facility],[address] [place] [address] 18374 BMP with eGFR Normal [facility] Comment on above: Result Comment: BASI C METABOLIC PANEL Performed By: #### 2 37839 ####[facility],[address] [place] [address] 30770 Calcium [Mass/Vol] 9.4 mg/dL Normal 8.5 - 10.1 [facility] Comment on above: Performed By: #### 2 96926 ####[facility],[address] [place] [address] 44703 Chloride [Moles/Vol] 104 mmol/L Normal 98 - 107 [facility] Comment on above: Performed By: #### 2 49522 ####[facility],[address] [place] [address] 45427 CO2 [Moles/Vol] 24.0 mmol/L Normal 21.0 - 32.0 [facility] Comment on above: Performed By: #### 2 57497 ####[facility],[address] [place] [address] 11617 Creatinine [Mass/Vol] 1.11 mg/dL High 0.55 - 1.02 [facility] Comment on above: Performed By: #### 2 81342 ####[facility],[address] [place] [address] 89159 eGFR 56 ML/MINUTE Low 60 - 999 [facility] Comment on above: Performed By: #### 2 89278 ####[facility],[address] [place] [address] 24527 GFR/1.73 sq M.predicted among non-blacks MDRD (S/P/Bld) [Vol rate/Area] mL/min/{1.73_m2} Normal 60 - 999 [facility] Comment on above: Result Comment: ACCO RDING TO THE NATIONAL KIDNEY DISEASE EDUCATION PROGRAM(NKDE), A NORMAL eGFRIS A VALUE GREATER THAN OR EQUAL TO 60 ML/MIN/1.73 SQ METERS.CHRONIC KIDNEY DISEASE: <60mL/MIN/1.73 SQ METERSKIDNEY FAILURE: <15mL/MIN/1.73 SQ METERSTHIS TEST SHOULD ONLY BE USED FOR PATIENTS 18 YEARS OF AGE AND OLDER. Performed By: #### 2 28870 ####[facility],[address] [place] [address] 04283 Glucose [Mass/Vol] 146 mg/dL High 74 - 106 [facility] Comment on above: Performed By: #### 2 29938 ####[facility],[address] [place] [address] Potassium [Moles/Vol] 2.9 mmol/L Critically low 3.5 - 5.1 [facility] Comment on above: Result Comment: { CA LLED TO ED AT 0650{ READ BACK BY TADEO TO CWB Performed By: #### 2 49299 ####[facility],[address] [place] [address] Sodium [Moles/Vol] 143 mmol/L Normal 136 - 145 [facility] Comment on above: Performed By: #### 2 03725 ####[facility],[address] [place] [address] Urea nitrogen [Mass/Vol] 9 mg/dL Normal 7 - 18 [facility] Comment on above: Performed By: #### 2 06350 ####[facility],[address] [place] [address] CBC + DIFFon 08-31-2024 Baso # 0.06 x10EE3/UL Normal 0.00 - 0.10 [facility] Comment on above: Performed By: #### 2 40903 ####[facility],[address] [place] [address] Basophils/100 WBC (Bld) 0.3 % Normal 0.0 - 2.0 [facility] Comment on above: Performed By: #### 2 40059 ####[facility],[address] [place] [address] CBC + DIFF Normal [facility] Comment on above: Result Comment: CBC- COMPLETE BLOOD COUNT Performed By: #### 2 23063 ####[place] [address] EO # 0.19 x10EE3/UL Normal 0.00 - 0.50 [facility] Comment on above: Performed By: #### 2 34946 ####[facility],[address] [place], [place] [address] Eosinophils/100 WBC (Bld) 1.1 % Normal 0.0 - 7.0 [facility] Comment on above: Performed By: #### 2 61822 ####[facility],[address] [place] [address] Erythrocyte distribution width (RBC) [Ratio] 14.0 % Normal 12.0 - 15.6 [facility] Comment on above: Performed By: #### 2 68297 ####[facility],[address] [place] [address] Hematocrit (Bld) [Volume fraction] 47.1 % High 34.0 - 46.0 [facility] Comment on above: Performed By: #### 2 62156 ####[facility],[address] [place] [address] Hemoglobin (Bld) [Mass/Vol] 15.6 g/dL Normal 12.0 - 16.0 [facility] Comment on above: Performed By: #### 2 54640 ####[facility],[address] [place] [address] Lymph # 3.41 x10EE3/UL High 0.80 - 2.80 [facility] Comment on above: Performed By: #### 2 31424 ####[facility],[address] [place], [place] [address] Lymphocytes/100 WBC (Bld) 20.7 % Normal 20.0 - 45.0 [facility] Comment on above: Performed By: #### 2 75882 ####[facility],[address] [place], [place] [address] MANUAL DIFF N/A Normal [facility] Comment on above: Performed By: #### 2 96653 ####[facility],[address] [place], [place] [address] MCH (RBC) [Entitic mass] 32 pg Normal 27 - 33 [facility] Comment on above: Performed By: #### 2 86789 ####[facility],[address] [place] [address] 67395 MCHC 33 X10 3 Normal 32 - 36 [facility] Comment on above: Performed By: #### 2 84213 ####[facility],[address] [place] [address] 60651 MCV (RBC) [Entitic vol] 97 fL Normal 80 - 99 [facility] Comment on above: Performed By: #### 2 14454 ####[facility],[address] [place] [address] [place] # 1.00 x10EE3/UL Normal 0.20 - 1.00 [facility] Comment on above: Performed By: #### 2 12881 ####[facility],[address] [place] [address] 43241 MONOS % 6.1 % Normal 0.0 - 10.0 [facility] Comment on above: Performed By: #### 2 01581 ####[facility],[address] [place], [place] [address] Morphology Efra (Bld) [Interp] N/A Normal [facility] Comment on above: Performed By: #### 2 03051 ####[facility],[address] [place] [address] 33133 Neut # 11.82 x10EE3/UL High 1.50 - 7.10 [facility] Comment on above: Performed By: #### 2 06556 ####[facility],[address] [place], [place] [address] Neutrophils/100 WBC (Bld) 71.8 % Normal 46.0 - 76.0 [facility] Comment on above: Performed By: #### 2 65974 ####[facility],[address] [place], [place] [address] PLATELET 387 x10EE3/UL Normal 150 - 450 [facility] Comment on above: Performed By: #### 2 13090 ####[facility],[address] [place] [address] Platelet mean volume (Bld) [Entitic vol] 7.1 fL Normal 6.6 - 10.5 [facility] Comment on above: Result Comment: AUTO MATED DIFFERENTIAL Performed By: #### 2 37991 ####[facility],[address] [place] [address] RBC 4.88 x 10EE6/UL Normal 4.10 - 5.30 [facility] Comment on above: Performed By: #### 2 90275 ####[facility],[address] [place] [address] WBC 16.5 x 10EE3/UL High 4.5 - 10.8 [facility] Comment on above: Performed By: #### 2 08662 ####[facility],[address] [place] [address] CT ABDOMEN/PELVIS WOon 08-31 CT ABDOMEN/PELVIS WO Normal [facility] SERUM QUALon 08-31 EXTERNAL QC DONE? YES Normal [facility] Comment on above: Performed By: #### 2 87721 ####[facility],[address] [place] [address] INTERNAL QC PASS Normal [facility] Comment on above: Performed By: #### 2 38653 ####[facility],[address] [place] [address] SER Positive Normal NEGATIVE [facility] Comment on above: Performed By: #### 2 60853 ####[facility],[address] [place], [place] [address] EMERGENCY REPORTon EMERGENCY REPORT Normal [facility] IR NEPHROSTOMY EXCHANGEon IR NEPHROSTOMY EXCHANGE Normal [facility] LABORATORYOrdered By: Courtney Freed on 08-11-2024 Beta HCG ( test) Ql (U) Negative (08/11/24 8:31 AM) [facility] Work Phone: .Auto Diffon 08-06-2024 Basophil, Absolute 0.1 10 3/mcL Normal 0.0-0.3 [facility] Comment on above: Performed By: #### B MP, ANEU, GFR, ADIFF, CBC ####[address] [address] Basophils/100 WBC (Bld) 1.2 % Normal 0.0-2.5 [facility] Comment on above: Performed By: #### B MP, ANEU, GFR, ADIFF, CBC ####[address] [address] Eosinophil, Absolute 0.4 10 3/mcL Normal 0.0-0.7 [facility] Comment on above: Performed By: #### B MP, ANEU, GFR, ADIFF, CBC ####[address] [address] Eosinophils/100 WBC (Bld) 4.3 % Normal 0.0-6.0 [facility] Comment on above: Performed By: #### B MP, ANEU, GFR, ADIFF, CBC ####[address] [address] Lymphocyte, Absolute 1.8 10 3/mcL Normal 0.9-4.3 [facility] Comment on above: Performed By: #### B MP, ANEU, GFR, ADIFF, CBC ####[address] [address] Lymphocytes/100 WBC (Bld) 20.0 % Normal 20.0-40.0 [facility] Comment on above: Performed By: #### B MP, ANEU, GFR, ADIFF, CBC ####[address] [address] Monocyte, Absolute 0.5 10 3/mcL Normal 0.1-1.4 [facility] Comment on above: Performed By: #### B MP, ANEU, GFR, ADIFF, CBC ####[address] [address] Monocytes/100 WBC (Bld) 6.1 % Normal 2.0-13.0 [facility] Comment on above: Performed By: #### B MP, ANEU, GFR, ADIFF, CBC ####[place] [address] [place] [address] 73658 Neutrophils/100 WBC (Bld) 68.4 % Normal 50.0-75.0 [facility] Comment on above: Performed By: #### B MP, ANEU, GFR, ADIFF, CBC ####[address] [address] .GFRon 08-06-2024 GFR >60 [facility] Comment on above: Result Comment: GFR [...] #### B MP, ANEU, GFR, ADIFF, CBC ####[address] [address] GFR Non- >60 [facility] Comment on above: Result Comment: GFR [...] #### B MP, ANEU, GFR, ADIFF, CBC ####[address] [address] .NEUABSon 08-06-2024 Neutrophil, Absolute 6.1 10 3/mcL Normal 2.3-8.1 [facility] Comment on above: Performed By: #### B MP, ANEU, GFR, ADIFF, CBC ####[address] [address] BMPon 08-06-2024 BUN/Creatinine Ratio 13.3 ratio Normal 10.0-22.0 [facility] Comment on above: Performed By: #### B MP, ANEU, GFR, ADIFF, CBC ####[place] [address] Calcium [Mass/Vol] 10.7 mg/dL High 8.7-10.4 [facility] Comment on above: Performed By: #### B MP, ANEU, GFR, ADIFF, CBC ####[place] [address] Chloride [Moles/Vol] 110 mmol/L Normal 98-110 [facility] Comment on above: Performed By: #### B MP, ANEU, GFR, ADIFF, CBC ####[place] [address] CO2 [Moles/Vol] 27 mmol/L Normal 22-32 [facility] Comment on above: Performed By: #### B MP, ANEU, GFR, ADIFF, CBC ####[place] [address] Creatinine [Mass/Vol] 0.90 mg/dL Normal 0.50-1.20 [facility] Comment on above: Result Comment: Test ing performed on [employer] analyzer using enzymatic creatinine methodology. Performed By: #### B MP, ANEU, GFR, ADIFF, CBC ####[place] [address] Electrolyte Balance 6.0 mEq/L Normal 4.0-15.0 [facility] Comment on above: Performed By: #### B MP, ANEU, GFR, ADIFF, CBC ####[place] [address] Glucose [Mass/Vol] 85 mg/dL Normal 70-110 [facility] Comment on above: Performed By: #### B MP, ANEU, GFR, ADIFF, CBC ####[place] [address] Potassium [Moles/Vol] 4.4 mmol/L Normal 3.5-5.0 [facility] Comment on above: Performed By: #### B MP, ANEU, GFR, ADIFF, CBC ####[place] [address] Sodium [Moles/Vol] 143 mmol/L Normal 136-145 [facility] Comment on above: Performed By: #### B MP, ANEU, GFR, ADIFF, CBC ####[place] [address] Urea nitrogen [Mass/Vol] 12.0 mg/dL Normal 8.0-22.0 [facility] Comment on above: Performed By: #### B MP, ANEU, GFR, ADIFF, CBC ####[place] [address] CBCon 08-06-2024 Erythrocyte distribution width (RBC) [Ratio] 16.0 % High 11.5-15.5 [facility] Comment on above: Performed By: #### B MP, ANEU, GFR, ADIFF, CBC ####[place] [address] Hematocrit (Bld) [Volume fraction] 40.0 % Normal 34.0-46.0 [facility] Comment on above: Performed By: #### B MP, ANEU, GFR, ADIFF, CBC ####[place] [address] Hgb 13.5 G/dL Normal 12.0-16.0 [facility] Comment on above: Performed By: #### B MP, ANEU, GFR, ADIFF, CBC ####[place] [address] MCH (RBC) [Entitic mass] 32.6 pg Normal 27.0-33.0 [facility] Comment on above: Performed By: #### B MP, ANEU, GFR, ADIFF, CBC ####[place] [address] MCHC 33.8 G/dL Normal 32.0-36.0 [facility] Comment on above: Performed By: #### B MP, ANEU, GFR, ADIFF, CBC ####[place] [address] MCV (RBC) [Entitic vol] 96.4 fL Normal 80.0-99.0 [facility] Comment on above: Performed By: #### B MP, ANEU, GFR, ADIFF, CBC ####[place] [address] Platelet 429 10 3/mcL Normal 150-450 [facility] Comment on above: Performed By: #### B MP, ANEU, GFR, ADIFF, CBC ####[place] [address] Platelet mean volume (Bld) [Entitic vol] 7.4 fL Normal 6.6-10.5 [facility] Comment on above: Performed By: #### B MP, ANEU, GFR, ADIFF, CBC ####[place] [address] RBC 4.15 10 6/mcL Normal 4.10-5.30 [facility] Comment on above: Performed By: #### B MP, ANEU, GFR, ADIFF, CBC ####[place] [address] WBC 8.9 10 3/mcL Normal 4.5-10.8 [facility] Comment on above: Performed By: #### B MP, ANEU, GFR, ADIFF, CBC ####[place] [address] LABORATORYOrdered By: SYSTEM SYSTEM on 08-06-2024 Basophils [...] above: Interpretive Data: T esting performed on [employer] analyzer using enzymatic creatinine methodology. Electrolyte Balance [...] (S/P/Bld) [Vol rate/Area] ml/min/1.73sqm Invalid Interpretation Code [facility] S Comment on above: Interpretive Data: [...] (S/P/Bld) [Vol rate/Area] ml/min/1.73sqm Invalid Interpretation Code [facility] S Comment on above: Interpretive Data: [...] # 0.04 x10EE3/UL Normal 0.00 - 0.10 [facility] Comment on above: Performed By: #### 2 75269 ####[facility],[address] [place], [place] [address] Basophils/100 WBC (Bld) 0.3 % Normal 0.0 - 2.0 [facility] Comment on above: Performed By: #### 2 22730 ####[facility],[address] [place] [address] CBC + DIFF Normal [facility] Comment on above: Result Comment: CBC- COMPLETE BLOOD COUNT Performed By: #### 2 25839 ####[facility],[address] [place] [address] 00907 EO # 0.37 x10EE3/UL Normal 0.00 - 0.50 [facility] Comment on above: Performed By: #### 2 74695 ####[facility],[address] [place], [place] [address] Eosinophils/100 WBC (Bld) 3.1 % Normal 0.0 - 7.0 [facility] Comment on above: Performed By: #### 2 20285 ####[facility],[address] [place] [address] Erythrocyte distribution width (RBC) [Ratio] 14.5 % Normal 12.0 - 15.6 [facility] Comment on above: Performed By: #### 2 24873 ####[facility],[address] [place] [address] 05945 Hematocrit (Bld) [Volume fraction] 43.4 % Normal 34.0 - 46.0 [facility] Comment on above: Performed By: #### 2 41623 ####[facility],[address] [place] [address] 78392 Hemoglobin (Bld) [Mass/Vol] 15.0 g/dL Normal 12.0 - 16.0 [facility] Comment on above: Performed By: #### 2 06712 ####[facility],[address] [place] [address] Lymph # 2.32 x10EE3/UL Normal 0.80 - 2.80 [facility] Comment on above: Performed By: #### 2 44821 ####[facility],[address] [place], [place] [address] Lymphocytes/100 WBC (Bld) 19.9 % Low 20.0 - 45.0 [facility] Comment on above: Performed By: #### 2 07728 ####[facility],[address] [place] [address] 03019 MANUAL DIFF N/A Normal [facility] Comment on above: Performed By: #### 2 14127 ####[facility],[address] [place] [address] 18546 MCH (RBC) [Entitic mass] 32 pg Normal 27 - 33 [facility] Comment on above: Performed By: #### 2 63972 ####[facility],[address] [place] [address] 21099 MCHC 35 X10 3 Normal 32 - 36 [facility] Comment on above: Performed By: #### 2 27206 ####[facility],[address] [place] [address] 66205 MCV (RBC) [Entitic vol] 94 fL Normal 80 - 99 [facility] Comment on above: Performed By: #### 2 55067 ####[facility],[address] [place] [address] 22712 [place] # 0.68 x10EE3/UL Normal 0.20 - 1.00 [facility] Comment on above: Performed By: #### 2 19889 ####[facility],[address] [place] [address] 42640 MONOS % 5.8 % Normal 0.0 - 10.0 [facility] Comment on above: Performed By: #### 2 78243 ####[facility],[address] [place] [address] 06300 Morphology Efra (Bld) [Interp] N/A Normal [facility] Comment on above: Performed By: #### 2 59447 ####[facility],[address] [place] [address] 95140 Neut # 8.28 x10EE3/UL High 1.50 - 7.10 [facility] Comment on above: Performed By: #### 2 84157 ####[facility],[address] [place] [address] 85274 Neutrophils/100 WBC (Bld) 70.9 % Normal 46.0 - 76.0 [facility] Comment on above: Performed By: #### 2 38335 ####[facility],[address] [place] [address] 19198 PLATELET 398 x10EE3/UL Normal 150 - 450 [facility] Comment on above: Performed By: #### 2 41756 ####[facility],[address] [place] [address] 01205 Platelet mean volume (Bld) [Entitic vol] 6.5 fL Low 6.6 - 10.5 [facility] Comment on above: Result Comment: AUTO MATED DIFFERENTIAL Performed By: #### 2 13507 ####[facility],[address] [place] [address] 62273 RBC 4.62 x 10EE6/UL Normal 4.10 - 5.30 [facility] Comment on above: Performed By: #### 2 81696 ####[facility],[address] [place] [address] 40589 WBC 11.7 x 10EE3/UL High 4.5 - 10.8 [facility] Comment on above: Performed By: #### 2 42144 ####[facility],[address] [place] [address] 40745 CMP with eGFRon 07-10-2024 AGE 33 years Normal [facility] Comment on above: Performed By: #### 2 66618 ####[facility],[address] [place] [address] 12608 Albumin [Mass/Vol] 3.8 g/dL Normal 3.4 - 5.0 [facility] Comment on above: Performed By: #### 2 89991 ####[facility],[address] [place] [address] 83381 Albumin/Globulin [Mass ratio] 1.2 {ratio} Normal 0.9 - 1.6 [facility] Comment on above: Performed By: #### 2 43125 ####[facility],[address] [place] [address] 26671 ALK PHOS 99 U/L Normal 46 - 116 [facility] Comment on above: Performed By: #### 2 64533 ####[facility],[address] [place] [address] 88153 ALT [Catalytic activity/Vol] 13 U/L Low 16 - 63 [facility] Comment on above: Performed By: #### 2 12634 ####[facility],[address] [place] [address] 66096 Anion gap [Moles/Vol] 17 mmol/L Normal 10 - 20 [facility] Comment on above: Performed By: #### 2 05178 ####[facility],[address] [place] [address] 00726 AST [Catalytic activity/Vol] 19 U/L Normal 13 - 39 [facility] Comment on above: Performed By: #### 2 07678 ####[facility],[address] [place] [address] 75367 B/C RATIO 6 ratio Normal 0 - 30 [facility] Comment on above: Performed By: #### 2 32510 ####[facility],[address] [place] [address] 50838 Bilirubin [Mass/Vol] 0.3 mg/dL Normal 0.2 - 1.0 [facility] Comment on above: Performed By: #### 2 32894 ####[facility],[address] [place] [address] 20686 Calcium [Mass/Vol] 9.3 mg/dL Normal 8.5 - 10.1 [facility] Comment on above: Performed By: #### 2 01590 ####[facility],[address] [place] [address] 62584 Chloride [Moles/Vol] 102 mmol/L Normal 98 - 107 [facility] Comment on above: Performed By: #### 2 88723 ####[facility],[address] [place] [address] 51855 CMP with eGFR Normal [facility] Comment on above: Result Comment: COMP REHENSIVE METABOLIC PANEL Performed By: #### 2 99983 ####[facility],[address] [place] [address] 38501 CO2 [Moles/Vol] 26.3 mmol/L Normal 21.0 - 32.0 [facility] Comment on above: Performed By: #### 2 26843 ####[facility],[address] [place] [address] 56077 Creatinine [Mass/Vol] 1.00 mg/dL Normal 0.55 - 1.02 [facility] Comment on above: Performed By: #### 2 78486 ####[facility],[address] [place] [address] 35101 GFR/1.73 sq M.predicted among non-blacks MDRD (S/P/Bld) [Vol rate/Area] mL/min/{1.73_m2} Normal 60 - 999 [facility] Comment on above: Performed By: #### 2 67361 ####[facility],[address] [place] [address] 58719 Result Comment: ACCO RDING TO THE NATIONAL KIDNEY DISEASE EDUCATION PROGRAM(NKDE), A NORMAL eGFRIS A VALUE GREATER THAN OR EQUAL TO 60 ML/MIN/1.73 SQ METERS.CHRONIC KIDNEY DISEASE: <60mL/MIN/1.73 SQ METERSKIDNEY FAILURE: <15mL/MIN/1.73 SQ METERSTHIS TEST SHOULD ONLY BE USED FOR PATIENTS 18 YEARS OF AGE AND OLDER. Globulin (S) [Mass/Vol] 3.2 g/dL Normal 1.5 - 3.8 [facility] Comment on above: Performed By: #### 2 96306 ####[facility],[address] [place] [address] 10286 Glucose [Mass/Vol] 99 mg/dL Normal 74 - 106 [facility] Comment on above: Performed By: #### 2 69410 ####[facility],[address] [place] [address] 77455 Potassium [Moles/Vol] 4.0 mmol/L Normal 3.5 - 5.1 [facility] Comment on above: Performed By: #### 2 06686 ####[facility],[address] [place] [address] 06097 Protein [Mass/Vol] 7.0 g/dL Normal 6.4 - 8.2 [facility] Comment on above: Performed By: #### 2 77679 ####[facility],[address] [place] [address] Sodium [Moles/Vol] 141 mmol/L Normal 136 - 145 [facility] Comment on above: Performed By: #### 2 55514 ####[address] [address] Urea nitrogen [Mass/Vol] 6 mg/dL Low 7 - 18 [facility] Comment on above: Performed By: #### 2 86053 ####[facility],[address] [place] [address] URINALYSISon 07-10-2024 Amorphous NONE Normal [facility] Comment on above: Performed By: #### 2 31786 ####[facility],[address] [place] [address]0002 Bacteria NONE Normal [facility] Comment on above: Performed By: #### 2 19705 ####[facility],[address] [place] [address]338 Bilirubin Ql (U) Negative Normal NORMAL: NEGATIVE [facility] Comment on above: Performed By: #### 2 27408 ####[facility],[address] [place] [address]345 Casts NONE Normal [facility] Comment on above: Performed By: #### 2 35967 ####[facility],[address] [place] [address]44 Clarity (U) clear Normal NORMAL: CLEAR [facility] Comment on above: Performed By: #### 2 66340 ####[facility],[address] [place] [address]48 Color (U) yellow Normal NORMAL: YELLOW [facility] Comment on above: Performed By: #### 2 31911 ####[facility],[address] [place] [address] 70193 Crystals LM Nom (Urine sed) NONE Normal [facility] Comment on above: Performed By: #### 2 22544 ####[facility],[address] [place] [address] 43298 Epi Cells NONE Normal [facility] Comment on above: Performed By: #### 2 05392 ####[facility],[address] [place] [address]603 Glucose Ql (U) NORM Normal NORMAL: NORMAL [facility] Comment on above: Performed By: #### 2 70277 ####[facility],[address] [place] [address]851 Hemoglobin Ql (U) 10 Abnormal NORMAL: NEGATIVE [facility] Comment on above: Performed By: #### 2 76712 ####[facility],[address] [place] [address] 96422 Ketone Negative Normal NORMAL: NEGATIVE [facility] Comment on above: Performed By: #### 2 51385 ####[facility],[address] [place] [address] 83111 Leukocytes 25 Abnormal NORMAL: NEGATIVE [facility] Comment on above: Performed By: #### 2 57158 ####[facility],[address] [place] [address] 35832 Mucous NONE Normal [facility] Comment on above: Performed By: #### 2 30212 ####[facility],[address] [place] [address] 21586 Nitrite Ql (U) Negative Normal NORMAL: NEGATIVE [facility] Comment on above: Performed By: #### 2 59141 ####[facility],[address] [place] [address] 25234 pH (U) 8 [pH] Normal NORMAL: 5.0-8.0 [facility] Comment on above: Performed By: #### 2 95314 ####[facility],[address] [place] [address] 71843 Protein Ql (U) 15 Abnormal NORMAL: NEGATIVE [facility] Comment on above: Performed By: #### 2 65483 ####[facility],[address] [place] [address] 14831 Rbc NONE Normal 0-3/hpf [facility] Comment on above: Performed By: #### 2 17136 ####[facility],[address] [place] [address] 50986 Sp [place] 1.010 Normal NORMAL: 1.010-1.030 [facility] Comment on above: Performed By: #### 2 11046 ####[facility],[address] [place] [address] Specimen Type UNSPECIFIED Normal [facility] Comment on above: Performed By: #### 2 95409 ####[facility],[address] [place], [place] [id number] Urinalysis dipstick W Reflex Microscopic panel (U) SEE BELOW Normal [facility] Comment on above: Result Comment: MICR OSCOPIC Performed By: #### 2 17904 ####[facility],[address] [place] [address] Urobilinog NORM Normal NORMAL: NORMAL [facility] Comment on above: Performed By: #### 2 92122 ####[facility],[address] [place] [address] Wbc 1-5 Normal 0-5/hpf [facility] Comment on above: Performed By: #### 2 15563 ####[facility],[address] [place] [address] Yeast NONE Normal [facility] Comment on above: Performed By: #### 2 59547 ####[facility],[address] [place], [place] [id number] .GFRon 06-09-2024 GFR >60 Normal [facility] ([place]) Comment on above: Result Comment: GFR Population [...] Performed By: #### G FR, BMP #### [address] [address] GFR Non- >60 Normal [facility] ([place] Comment on above: Result Comment: GFR Population [...] Performed By: #### G FR, BMP #### [address] [address] [facility] 06-09-2024 BUN/Creatinine Ratio 14.1 ratio Normal 10.0-22.0 [facility] ([place] Comment on above: Performed By: #### G FR, BMP #### [address] [address] Calcium [Mass/Vol] 9.0 mg/dL Normal 8.7-10.4 [facility] ([place]) Comment on above: Performed By: #### Deondre FR, BMP #### [address] [address] Chloride [Moles/Vol] 113 mmol/L High 98-110 [facility] ([place] Comment on above: Performed By: #### G FR, BMP #### [address] [address] CO2 [Moles/Vol] 22 mmol/L Normal 22-32 [facility] ([place] Comment on above: Performed By: #### G FR, BMP #### [address] [address] Creatinine [Mass/Vol] 0.85 mg/dL Normal 0.50-1.20 [facility] ([place] Comment on above: Performed By: #### G FR, BMP #### [address] [address] Electrolyte Balance 5.0 mEq/L Normal 4.0-15.0 [facility] ([place] Comment on above: Performed By: #### G , BMP #### [address] [address] Glucose [Mass/Vol] 98 mg/dL Normal 70-110 [facility] ([place] Comment on above: Performed By: #### G , BMP #### [address] [address] Potassium [Moles/Vol] 4.2 mmol/L Normal 3.5-5.0 [facility] ([place] Comment on above: Result Comment: Spec imen slightly hemolyzed. Performed By: #### Deondre VALDES, BMP #### [address] [address] Sodium [Moles/Vol] 140 mmol/L Normal 136-145 [facility] ([place] Comment on above: Performed By: #### Deondre VALDES, BMP #### [address] [address] Urea nitrogen [Mass/Vol] 12.0 mg/dL Normal 8.0-22.0 [facility] ([place] Comment on above: Performed By: #### Deondre VALDES, BMP #### [address] [address] LABORATORYOrdered By: Tamia Woodson on 06-09-2024 Beta HCG ( test) Ql (U) Negative (06/09/24 7:24 AM) [facility] Work Phone: LABORATORYOrdered By: SYSTEM SYSTEM on 06-09-2024 Calcium [Mass/Vol] 9.0 mg/dL Normal 8.7 - 10. 4 mg/dL AH ADM SS Chloride [Moles/Vol] 113 mmol/L High 98 - 11 0 mEq/L AH ADM SS CO2 [Moles/Vol] 22 mmol/L Normal 22 - 32 mEq/L AH ADM SS Creatinine [Mass/Vol] 0.85 mg/dL Normal 0.50 - 1.20 mg/dL AH ADM SS Electrolyte Balance 5.0 mEq/L Normal 4.0 - 15 .0 mEq/L ADM SS GFR/1.73 sq M.predicted among blacks MDRD (S/P/Bld) [Vol rate/Area] ml/min/1.73sqm Invalid Interpretation Code [facility] S Comment on above: Interpretive Data: [...] (S/P/Bld) [Vol rate/Area] ml/min/1.73sqm Invalid Interpretation Code [facility] S Comment on above: Interpretive Data: [...] AH ADM SS Urea nitrogen/Creatinine [Mass ratio] 14.1 ratio Normal 10.0 - 22.0 ratio ADM SS LABORATORYOrdered By: Marisa Dutton on 03-03-2024 Beta HCG ( test) Ql (U) Negative (03/03/24 1:07 PM) [facility] Work Phone: .Auto Diffon 01-21-2024 Basophil, Absolute 0.1 10 3/mcL Normal 0.0-0.3 [facility] ([place]) Comment on above: Performed By: #### C BC, ADIFF, PRO, BMP, ANEU, GFR #### [address] [address] Basophils/100 WBC (Bld) 0.8 % Normal 0.0-2.5 A [facility] ([place]) Comment on above: Performed By: #### C BC, ADIFF, PRO, BMP, ANEU, GFR #### [address] [address] Eosinophil, Absolute 0.2 10 3/mcL Normal 0.0-0.7 [facility] ([place] Comment on above: Performed By: #### C BC, ADIFF, PRO, BMP, ANEU, GFR #### [address] [address] Eosinophils/100 WBC (Bld) 1.4 % Normal 0.0-6.0 [facility] ([place] Comment on above: Performed By: #### C BC, ADIFF, PRO, BMP, ANEU, GFR #### [address] [address] Lymphocyte, Absolute 1.9 10 3/mcL Normal 0.9-4.3 [facility] ([place] Comment on above: Performed By: #### C BC, ADIFF, PRO, BMP, ANEU, GFR #### [address] [address] Lymphocytes/100 WBC (Bld) 16.4 % Low 20.0-40.0 [facility] ([place] Comment on above: Performed By: #### C BC, ADIFF, PRO, BMP, ANEU, GFR #### [address] [address] Monocyte, Absolute 1.1 10 3/mcL Normal 0.1-1.4 [facility] ([place] Comment on above: Performed By: #### C BC, ADIFF, PRO, BMP, ANEU, GFR #### [address] [address] Monocytes/100 WBC (Bld) 9.9 % Normal 2.0-13.0 A [facility] ([place]) Comment on above: Performed By: #### C BC, ADIFF, PRO, BMP, ANEU, GFR #### [address] [address] Neutrophils/100 WBC (Bld) 71.5 % Normal 50.0-75.0 [facility] ([place] Comment on above: Performed By: #### C BC, ADIFF, PRO, BMP, ANEU, GFR #### [address] [address] .GFRon 01-21-2024 GFR Non- >60 Normal [facility] ([place] Comment on above: Result Comment: GFR Population [...] BC, ADIFF, PRO, BMP, ANEU, GFR #### [address] [address] GFR >60 Normal [facility] ([place] Comment on above: Result Comment: GFR Population [...] BC, ADIFF, PRO, BMP, ANEU, GFR #### [address] [address] .NEUABSon 01-21-2024 Neutrophil, Absolute 8.1 10 3/mcL Normal 2.3-8.1 [facility] ([place] Comment on above: Performed By: #### C BC, ADIFF, PRO, BMP, ANEU, GFR #### [address] [address] BMPon 01-21-2024 BUN/Creatinine Ratio 13.3 ratio Normal 10.0-22.0 [facility] ([place]) Comment on above: Order Comment: Speci men hemolyzed. called to allmichaela in SDU for recollect at 01/21/2024 12:12:11 EDT Performed By: #### C BC, ADIFF, PRO, BMP, ANEU, GFR #### [address] [address] Calcium [Mass/Vol] 10.2 mg/dL Normal 8.7-10.4 [facility] ([place] Comment on above: Order Comment: Speci men hemolyzed. called to ally in SDU for recollect at 01/21/2024 12:12:11 EDT Performed By: #### C BC, ADIFF, PRO, BMP, ANEU, GFR #### [address] [address] Chloride [Moles/Vol] 106 mmol/L Normal 98-110 [facility] ([place] Comment on above: Order Comment: Speci men hemolyzed. called to ally in SDU for recollect at 01/21/2024 12:12:11 EDT Performed By: #### C BC, ADIFF, PRO, BMP, ANEU, GFR #### [address] [address] CO2 [Moles/Vol] 20 mmol/L Low 22-32 [facility] ([place] Comment on above: Order Comment: Speci men hemolyzed. called to ally in SDU for recollect at 01/21/2024 12:12:11 EDT Performed By: #### C BC, ADIFF, PRO, BMP, ANEU, GFR #### [address] [address] Creatinine [Mass/Vol] 0.90 mg/dL Normal 0.50-1.20 [facility] ([place] Comment on above: Order Comment: Speci men hemolyzed. called to ally in SDU for recollect at 01/21/2024 12:12:11 EDT Performed By: #### C BC, ADIFF, PRO, BMP, ANEU, GFR #### [address] [address] Electrolyte Balance 9.0 mEq/L Normal 4.0-15.0 [facility] ([place] Comment on above: Order Comment: Speci men hemolyzed. called to ally in SDU for recollect at 01/21/2024 12:12:11 EDT Performed By: #### C BC, ADIFF, PRO, BMP, ANEU, GFR #### [address] [address] Glucose [Mass/Vol] 85 mg/dL Normal 70-110 [facility] ([place] Comment on above: Order Comment: Speci men hemolyzed. called to ally in SDU for recollect at 01/21/2024 12:12:11 EDT Performed By: #### C BC, ADIFF, PRO, BMP, ANEU, GFR #### [address] [address] Potassium [Moles/Vol] 5.8 mmol/L High 3.5-5.0 [facility] ([place] Comment on above: Order Comment: Speci men hemolyzed. called to ally in SDU for recollect at 01/21/2024 12:12:11 EDT Result Comment: Spec imen hemolyzed. Results may be falsely elevated. Performed By: #### C BC, ADIFF, PRO, BMP, ANEU, GFR #### [address] [address] Sodium [Moles/Vol] 135 mmol/L Low 136-145 [facility] ([place] Comment on above: Order Comment: Speci men hemolyzed. called to ally in SDU for recollect at 01/21/2024 12:12:11 EDT Performed By: #### C BC, ADIFF, PRO, BMP, ANEU, GFR #### [place] [id number] Urea nitrogen [Mass/Vol] 12.0 mg/dL Normal 8.0-22.0 [facility] ([place] Comment on above: Order Comment: Speci men hemolyzed. called to ally in SDU for recollect at 01/21/2024 12:12:11 EDT Result Comment: Spec imen hemolyzed. Results may be falsely elevated. Performed By: #### C BC, ADIFF, PRO, BMP, ANEU, GFR #### [address] [address] CBCon 01-21-2024 Erythrocyte distribution width (RBC) [Ratio] 17.2 % High 11.5-15.5 [facility] ([place] Comment on above: Performed By: #### C BC, ADIFF, PRO, BMP, ANEU, GFR #### [address] [address] Hematocrit (Bld) [Volume fraction] 44.3 % Normal 34.0-46.0 [facility] ([place] Comment on above: Performed By: #### C BC, ADIFF, PRO, BMP, ANEU, GFR #### [address] [address] Hgb 15.0 G/dL Normal 12.0-16.0 [facility] ([place] Comment on above: Performed By: #### C BC, ADIFF, PRO, BMP, ANEU, GFR #### [place] [address] MCH (RBC) [Entitic mass] 31.3 pg Normal 27.0-33.0 [facility] ([place] Comment on above: Performed By: #### C BC, ADIFF, PRO, BMP, ANEU, GFR #### [place] [address] MCHC 33.8 G/dL Normal 32.0-36.0 [facility] ([place]) Comment on above: Performed By: #### C BC, ADIFF, PRO, BMP, ANEU, GFR #### [place] [address] MCV (RBC) [Entitic vol] 92.6 fL Normal 80.0-99.0 A [facility] ([place]) Comment on above: Performed By: #### C BC, ADIFF, PRO, BMP, ANEU, GFR #### [place] [address] Platelet 429 10 3/mcL Normal 150-450 [facility] ([place] Comment on above: Performed By: #### C BC, ADIFF, PRO, BMP, ANEU, GFR #### [place] [address] Platelet mean volume (Bld) [Entitic vol] 6.7 fL Normal 6.6-10.5 [facility] ([place] Comment on above: Performed By: #### C BC, ADIFF, PRO, BMP, ANEU, GFR #### [place] [address] RBC 4.78 10 6/mcL Normal 4.10-5.30 [facility] ([place]) Comment on above: Performed By: #### C BC, ADIFF, PRO, BMP, ANEU, GFR #### [place] [address] WBC 11.3 10 3/mcL High 4.5-10.8 [facility] ([place] Comment on above: Performed By: #### C BC, ADIFF, PRO, BMP, ANEU, GFR #### [facility] [address] [place] [address] LABORATORYOrdered By: SYSTEM SYSTEM on 01-21-2024 Calcium [...] (S/P/Bld) [Vol rate/Area] ml/min/1.73sqm Invalid Interpretation Code [facility] S Comment on above: Interpretive Data: [...] (S/P/Bld) [Vol rate/Area] ml/min/1.73sqm Invalid Interpretation Code [facility] S Comment on above: Interpretive Data: [...] AH Workflow SS MCV (RBC) [Entitic vol] 92.6 [...] 11.3 103/mcL High 4.5 - 10.8 10^3/mcL AH Workflow SS LABORATORYOrdered By: Josue Rodrigez on 01-21-2024 Beta HCG ( test) Ql (U) Negative (01/21/24 11:50 AM) [facility] Work Phone: LABORATORYOrdered By: Delmar Long [...] Comment on above: Interpretive Data: Charlie ambrosio [employer] (CHEST, 1992, 102:312S-25S) recommended therapeutic range for oral anticoagulant therapy is: LOW RISK: Prophylaxis of venous thrombosis INR: 2.0-3.0 Treatment of pulmonary embolism 2.0-3.0 Prevention of systemic embolism 2.0-3.0 HIGH RISK: Mechanical prosthetic valves 2.5-3.5 PROon 01-21-2024 INR Coag (PPP) [Relative time] 1.1 {INR} Normal [facility] ([place]) Comment on above: Result Comment: The [employer] [employer] (CHEST, 1991, 102:312S-25S) recommended therapeutic range for oral anticoagulant therapy is: LOW RISK: Prophylaxis of venous thrombosis INR: 2.0-3.0 Treatment of pulmonary embolism 2.0-3.0 Prevention of systemic embolism 2.0-3.0 HIGH RISK: Mechanical prosthetic valves 2.5-3.5 Performed By: #### C BC, ADIFF, PRO, BMP, ANEU, GFR #### [address] [address] PT Coag (PPP) [Time] 12.6 s Normal 9.0-14.2 [facility] ([place]) Comment on above: Result Comment: Effe ctive 05/17/08, Protime results may be affected by some antibiotics (i.e. Ciprofloxacin, Azithromycin, Bactrim) which may potentiate the action of oral anticoagulants, with further increases in Protime/INR. Performed By: #### C BC, ADIFF, PRO, BMP, ANEU, GFR #### [address] [address] [employer] Cytology Reporton 2023 [employer] Cytology Report . Pathology Reports Accession: Collected Date/Time: Received Date/Time: Pathologist: [id number] 12/08/2023 16:49 EST 12/08/2023 18:00 EST TRICIA CAST MD [employer] Cytology Report SPECIMEN: Specimen Description: Liquid Prep [...] Reports Accession: Collected Date/Time: Received Date/Time: Pathologist: [id number] 12/08/2023 16:49 EST 12/08/2023 18:00 EST TRICIA CAST MD COMMENT: This Pap Test was successfully processed and evaluated with the assistance of the Anafore[employer] Test Imaging System. Electronically Signed by Pathology report verified by [facility] Screened by: DANY DW Electronically signed by TRICIA CAST Sign-Out Date: 12/12/2023 17:27 Performing Lab: [facility], [address] [place] [address] Pathology Dept Disclaimer The Pap test is a screening test for cervical cancer. As evidenced by published data, it is subject to both inherent false negative and false positive results. Your patient's results should be interpreted in context with pertinent clinical history including gynecological examination. Normal [facility] ([place]) HPVon 12-10-2023 HPV Interp Normal See Interp HPVN [facility] ([place] Comment on above: Order Comment: Order placed by AP_HPV_ORDER rule from [id number] Result Comment: High Risk HPV Typing: NEGATIVE [...] BC, ADIFF, PRO, BMP, ANEU, GFR #### [place] [address] HPV Source Cervix Normal [facility] ([place]) Comment on above: Order Comment: Order placed by AP_HPV_ORDER rule from [id number] Performed By: #### C BC, ADIFF, PRO, BMP, ANEU, GFR #### [place] [address] DRUGUon 12-08-2023 Amphetamine (u) Negative Normal Negative [facility] ([place]) Comment on above: Performed By: #### U OXYS, DRUGU #### [place] [address] Barbiturate (u) Negative Normal Negative [facility] ([place] Comment on above: Performed By: #### U OXYS, DRUGU #### [place] [address] Benzodiazepine (u) Negative Normal Negative [facility] ([place]) Comment on above: Performed By: #### U OXYS, DRUGU #### [place] [address] Cannabinoid (u) Positive Abnormal Negative [facility] ([place]) Comment on above: Performed By: #### U OXYS, DRUGU #### [place] [address] Cocaine Ql (U) Negative Normal Negative [facility] ([place] Comment on above: Performed By: #### U OXYS, DRUGU #### [place] [address] Fentanyl (u) Negative Normal Negative [facility] ([place] Comment on above: Result Comment: Test ing has been performed FOR MEDICAL PURPOSES ONLY. Performed By: #### U OXYS, DRUGU #### [address] [address] Methadone Ql (U) Negative Normal Negative [facility] ([place] Comment on above: Performed By: #### U OXYS, DRUGU #### [address] [address] Opiate (u) Negative Normal Negative [facility] ([place] Comment on above: Performed By: #### U OXYS, DRUGU #### [address] [address] Oxycodone (u) Negative Normal Negative [facility] ([place] Comment on above: Result Comment: Test ing has been performed FOR MEDICAL PURPOSES ONLY. Performed By: #### U OXYS DRUGU #### [address] [address] PCP (u) Negative Normal Negative [facility] ([place] Comment on above: Performed By: #### U OXYS DRUGU #### [address] [address] Propoxyphene (u) Negative Normal Negative [facility] ([place] Comment on above: Performed By: #### U OXYYesenia DRUGU #### [address] [address] U pH Drug Scrn 8.0 Normal 5.0-8.0 [facility] ([place] Comment on above: Performed By: #### U OXYS DRUGU #### [address] [address] Urine Drugs screened: See Below Normal [facility] ([place] Comment on above: Result Comment: This drug [...] Performed By: #### U OXYS, DRUGU #### [place] [address] LABORATORYOrdered By: Alanna Russo on 12-08-2023 Amphetamines [...] NEPHROSTOMY EXCHANGE ORIGINAL EXAMINATION: IR NEPHROSTOMY TUBE [id number]/22/2023 3:02 pm IR NEPHROSTOMY TUBE CHANGE HISTORY: [...] 4:31:01 PM Ordering Provider: FLIP MARTIN Normal [facility] ([place]) Cassandra 07-30-2023 Amphetamine (u) Negative Normal Negative [facility] ([place] Comment on above: Performed By: #### U OXYS, DRUGU #### [address] [address] Barbiturate (u) Negative Normal Negative [facility] ([place] Comment on above: Performed By: #### U OXYS, DRUGU #### [address] [address] Benzodiazepine (u) Negative Normal Negative [facility] ([place]) Comment on above: Performed By: #### U OXYS, DRUGU #### [address] [address] Cannabinoid (u) Positive Abnormal Negative [facility] ([place] Comment on above: Performed By: #### U OXYS, DRUGU #### [place] [address] Cocaine Ql (U) Negative Normal Negative [facility] ([place] Comment on above: Performed By: #### U OXYS, DRUGU #### [address] [address] Fentanyl (u) Negative Normal Negative [facility] ([place] Comment on above: Result Comment: Test ing has been performed FOR MEDICAL PURPOSES ONLY. Performed By: #### U OXYS, DRUGU #### [place] [id number] Methadone Ql (U) Negative Normal Negative [facility] ([place] Comment on above: Performed By: #### U OXYS, DRUGU #### [address] [address] Opiate (u) Positive Abnormal Negative [facility] ([place] Comment on above: Performed By: #### U OXYS, DRUGU #### [address] [address] Oxycodone (u) Positive Abnormal Negative [facility] ([place] Comment on above: Result Comment: Test ing has been performed FOR MEDICAL PURPOSES ONLY. Performed By: #### U OXYS, DRUGU #### [facility] [address] [place] [address] PCP (u) Negative Normal Negative [facility] ([place] Comment on above: Performed By: #### U OXYS, DRUGU #### [facility] [address] [place] [address] Propoxyphene (u) Negative Normal Negative [facility] ([place] Comment on above: Performed By: #### U OXYS DRUGU #### [address] [address] U pH Drug Scrn 5.5 Normal 5.0-8.0 [facility] ([place] Comment on above: Performed By: #### U OXYYesenia DRUGU #### [address] [address] Urine Drugs screened: See Below Normal [facility] ([place] Comment on above: Result Comment: This drug [...] Performed By: #### U OXYYesenia DRUGU #### [address] [address] IR TUNNELED CATHETER INSERTI ON/PORTon 07-28-2023 IR TUNNELED CATHETER INSERTION/PORT ORIGINAL HISTORY: Cervical cancer with port unable to aspirate blood. Fibrin sheath confirmed on venogram 07/24/2023. Port placed 05/02/[address] Mason PROCEDURE: 1. Ultrasound guidance for venous access 2. Port venogram under fluoroscopy 3. Fibrin sheath stripping of right venous chest port MAINTAINER CENTRAL OFFICE: Dr. Aparicio MANUFACTURING SUPPORT ENGINEER: None MATERIALS: 6 Fr sheath Snare J [...] Date: 07/28/2023 8:00:17 PM Ordering Provider: BRITTNI UL [facility] ([place] IR NEPHROSTOMY TUBE CHANGE L EFT W/GUIDEon [...] to nephrostomy catheter under fluoroscopy LATERALITY: Left MAINTAINER CENTRAL OFFICE: Dr. Aparicio MANUFACTURING SUPPORT ENGINEER: None The procedure, risks, and alternatives, were discussed and all questions were answered. Informed consent obtained. Maximal sterile barrier technique, hand hygiene, skin prep, and sterile ultrasound techniques (if used) utilized. Percutaneous site was sterilely prepped and draped. Time out performed. Demand Generator Manager image demonstrates nephroureteral catheter. Contrast injection through [...] unchanged MATERIALS: 10 Fr drainage catheter [facility] [place] bag ANESTHESIA: General anesthesia FLUORO: 1.5 min [...] 07/26/2023 1:06:17 PM Ordering Provider: FLIP Aragon [facility]) .Auto Diffon 07-16-2023 Basophil, Absolute 0.1 10 3/mcL Normal 0.0-0.3 [facility] ([place]) Comment on above: Performed By: #### C BC, ADIFF, PRO, BMP, ANEU, GFR #### [address] [address] Basophils/100 WBC (Bld) 1.4 % Normal 0.0-2.5 A [facility], [facility] ([place]) Comment on above: Performed By: #### C BC, ADIFF, PRO, BMP, ANEU, GFR #### [address] [address] Eosinophil, Absolute 0.6 10 3/mcL Normal 0.0-0.7 [facility] ([place]) Comment on above: Performed By: #### C BC, ADIFF, PRO, BMP, ANEU, GFR #### [address] [address] Eosinophils/100 WBC (Bld) 7.7 % High 0.0-6.0 [facility] ([place]) Comment on above: Performed By: #### C BC, ADIFF, PRO, BMP, ANEU, GFR #### [address] [address] Lymphocyte, Absolute 2.1 10 3/mcL Normal 0.9-4.3 [facility] ([place]) Comment on above: Performed By: #### C BC, ADIFF, PRO, BMP, ANEU, GFR #### [address] [address] Lymphocytes/100 WBC (Bld) 26.7 % Normal 20.0-40.0 [facility] ([place]) Comment on above: Performed By: #### C BC, ADIFF, PRO, BMP, ANEU, GFR #### [address] [address] Monocyte, Absolute 1.0 10 3/mcL Normal 0.1-1.4 [facility] ([place]) Comment on above: Performed By: #### C BC, ADIFF, PRO, BMP, ANEU, GFR #### [address] [address] Monocytes/100 WBC (Bld) 12.7 % Normal 2.0-13.0 [facility] ([place]) Comment on above: Performed By: #### C BC, ADIFF, PRO, BMP, ANEU, GFR #### [address] [address] Neutrophils/100 WBC (Bld) 51.5 % Normal 50.0-75.0 [facility] ([place]) Comment on above: Performed By: #### C BC, ADIFF, PRO, BMP, ANEU, GFR #### [address] [address] .GFRon 07-16-2023 GFR >60 Normal [facility] ([place]) Comment on above: Result Comment: GFR Population [...] BC, ADIFF, PRO, BMP, ANEU, GFR #### [place] [address] GFR Non- >60 Normal [facility] ([place] Comment on above: Result Comment: GFR Population [...] BC, ADIFF, PRO, BMP, ANEU, GFR #### [place] [address] .NEUABSon 07-16-2023 Neutrophil, Absolute 4.0 10 3/mcL Normal 2.3-8.1 [facility] ([place] Comment on above: Performed By: #### C BC, ADIFF, PRO, BMP, ANEU, GFR #### [address] [address] CBCon 07-16-2023 Erythrocyte distribution width (RBC) [Ratio] 15.7 % High 11.5-15.5 [facility] ([place] Comment on above: Performed By: #### C BC, ADIFF, PRO, BMP, ANEU, GFR #### [place] [address] Hematocrit (Bld) [Volume fraction] 36.9 % Normal 34.0-46.0 [facility] ([place] Comment on above: Performed By: #### C BC, ADIFF, PRO, BMP, ANEU, GFR #### [place] [address] Hgb 12.3 G/dL Normal 12.0-16.0 [facility] ([place] Comment on above: Performed By: #### C BC, ADIFF, PRO, BMP, ANEU, GFR #### [place] [address] MCH (RBC) [Entitic mass] 30.1 pg Normal 27.0-33.0 [facility] ([place] Comment on above: Performed By: #### C BC, ADIFF, PRO, BMP, ANEU, GFR #### [place] [address] MCHC 33.3 G/dL Normal 32.0-36.0 [facility] ([place] Comment on above: Performed By: #### C BC, ADIFF, PRO, BMP, ANEU, GFR #### [place] [address] MCV (RBC) [Entitic vol] 90.3 fL Normal 80.0-99.0 A [facility] ([place]) Comment on above: Performed By: #### C BC, ADIFF, PRO, BMP, ANEU, GFR #### [place] [address] Platelet 396 10 3/mcL Normal 150-450 [facility] ([place] Comment on above: Performed By: #### C BC, ADIFF, PRO, BMP, ANEU, GFR #### [place] [address] Platelet mean volume (Bld) [Entitic vol] 7.1 fL Normal 6.6-10.5 [facility] ([place] Comment on above: Performed By: #### C BC, ADIFF, PRO, BMP, ANEU, GFR #### [place] [id number] RBC 4.08 10 6/mcL Low 4.10-5.30 [facility] ([place] Comment on above: Performed By: #### C BC, ADIFF, PRO, BMP, ANEU, GFR #### [place] [address] WBC 7.9 10 3/mcL Normal 4.5-10.8 [facility] ([place] Comment on above: Performed By: #### C BC, ADIFF, PRO, BMP, ANEU, GFR #### [place] [address] CMPon 07-16-2023 ALT/SGPT <7 Low 10-49 [facility] ([place] Comment on above: Performed By: #### C BC, ADIFF, PRO, BMP, ANEU, GFR #### [place] [address] Bili Total <0.20 Normal 0.20-1.20 [facility] ([place] Comment on above: Result Comment: Use of this assay is not recommended for patients undergoing treatment with eltrombopag due to the potential for falsely elevated results. Performed By: #### C BC, ADIFF, PRO, BMP, ANEU, GFR #### [place] [address] BUN/Creatinine Ratio Unable to Calculate Normal 10.0-2 2.0 [facility] ([place] Comment on above: Result Comment: Unab le to calculate this test result accurately. Results used to calculate this test are outside the reportable range. Performed By: #### C BC, ADIFF, PRO, BMP, ANEU, GFR #### [place] [address] Urea nitrogen [Mass/Vol] mg/dL Low 8.0-22.0 [facility] ([place] Comment on above: Performed By: #### C BC, ADIFF, PRO, BMP, ANEU, GFR #### [address] [address] Albumin Level 2.8 G/dL Low 3.2-4.8 [facility] ([place] Comment on above: Performed By: #### C BC, ADIFF, PRO, BMP, ANEU, GFR #### [address] [address] Albumin/Globulin [Mass ratio] 0.8 {ratio} Low 0.9-1.6 [facility] ([place] Comment on above: Performed By: #### C BC, ADIFF, PRO, BMP, ANEU, GFR #### [address] [address] ALP [Catalytic activity/Vol] 83 U/L Normal 38-126 [facility] ([place] Comment on above: Performed By: #### C BC, ADIFF, PRO, BMP, ANEU, GFR #### [address] [address] AST [Catalytic activity/Vol] 9 U/L Normal 8-34 [facility] ([place] Comment on above: Performed By: #### C BC, ADIFF, PRO, BMP, ANEU, GFR #### [address] [address] Calcium [Mass/Vol] 9.4 mg/dL Normal 8.7-10.4 [facility] ([place]) Comment on above: Performed By: #### C BC, ADIFF, PRO, BMP, ANEU, GFR #### [address] [address] Chloride [Moles/Vol] 103 mmol/L Normal 98-110 [facility] ([place]) Comment on above: Performed By: #### C BC, ADIFF, PRO, BMP, ANEU, GFR #### [address] [address] CO2 [Moles/Vol] 28 mmol/L Normal 22-32 [facility] ([place] Comment on above: Performed By: #### C BC, ADIFF, PRO, BMP, ANEU, GFR #### [address] [address] Creatinine [Mass/Vol] 0.76 mg/dL Normal 0.50-1.20 [facility] ([place]) Comment on above: Performed By: #### C BC, ADIFF, PRO, BMP, ANEU, GFR #### [place] [id number] Electrolyte Balance 7.0 mEq/L Normal 4.0-15.0 [facility] ([place]) Comment on above: Performed By: #### C BC, ADIFF, PRO, BMP, ANEU, GFR #### [place] [id number] Globulin 3.3 G/dL Normal 1.5-3.8 [facility] ([place] Comment on above: Performed By: #### C BC, ADIFF, PRO, BMP, ANEU, GFR #### [place] [address] Glucose [Mass/Vol] 98 mg/dL Normal 70-110 [facility] ([place]) Comment on above: Performed By: #### C BC, ADIFF, PRO, BMP, ANEU, GFR #### [place] [id number] Potassium [Moles/Vol] 4.5 mmol/L Normal 3.5-5.0 [facility] ([place] Comment on above: Performed By: #### C BC, ADIFF, PRO, BMP, ANEU, GFR #### [place] [id number] Sodium [Moles/Vol] 138 mmol/L Normal 136-145 [facility] ([place]) Comment on above: Performed By: #### C BC, ADIFF, PRO, BMP, ANEU, GFR #### [place] [address] Total Protein 6.1 G/dL Normal 5.7-8.2 [facility] ([place]) Comment on above: Result Comment: No te - New Reference Range in effect 20 Performed By: #### C BC, ADIFF, PRO, BMP, ANEU, GFR #### [place] [address] LABORATORYOrdered By: SYSTEM SYSTEM on 07-16-2023 Albumin [...] (S/P/Bld) [Vol rate/Area] ml/min/1.73sqm Invalid Interpretation Code [facility] S Comment on above: Interpretive Data: [...] (S/P/Bld) [Vol rate/Area] ml/min/1.73sqm Invalid Interpretation Code [facility] S Comment on above: Interpretive Data: [...] 07-16-2023 Magnesium [Mass/Vol] 2.0 mg/dL Normal 1.6-2.4 [facility] ([place]) Comment on above: Performed By: #### C BC, ADIFF, PRO, BMP, ANEU, GFR #### [place] [address] PHOSon 07-16-2023 Phosphate [Mass/Vol] 5.8 mg/dL High 2.4-5.1 [facility] ([place]) Comment on above: Result Comment: No te - New Reference Range in effect 20 Performed By: #### C BC, ADIFF, PRO, BMP, ANEU, GFR #### [place] [address] .Auto Diffon 07-15-2023 Basophil, Absolute 0.1 10 3/mcL Normal 0.0-0.3 [facility] ([place]) Comment on above: Performed By: #### C BC, ADIFF, PRO, BMP, ANEU, GFR #### [address] [address] Basophils/100 WBC (Bld) 1.2 % Normal 0.0-2.5 A [facility] ([place]) Comment on above: Performed By: #### C BC, ADIFF, PRO, BMP, ANEU, GFR #### [place] [id number] Eosinophil, Absolute 0.6 10 3/mcL Normal 0.0-0.7 [facility] ([place]) Comment on above: Performed By: #### C BC, ADIFF, PRO, BMP, ANEU, GFR #### [address] [address] Eosinophils/100 WBC (Bld) 7.1 % High 0.0-6.0 [facility] ([place] Comment on above: Performed By: #### C BC, ADIFF, PRO, BMP, ANEU, GFR #### [address] [address] Lymphocyte, Absolute 2.0 10 3/mcL Normal 0.9-4.3 [facility] ([place]) Comment on above: Performed By: #### C BC, ADIFF, PRO, BMP, ANEU, GFR #### [address] [address] Lymphocytes/100 WBC (Bld) 25.6 % Normal 20.0-40.0 [facility] ([place] Comment on above: Performed By: #### C BC, ADIFF, PRO, BMP, ANEU, GFR #### [address] [address] Monocyte, Absolute 1.1 10 3/mcL Normal 0.1-1.4 [facility] ([place]) Comment on above: Performed By: #### C BC, ADIFF, PRO, BMP, ANEU, GFR #### [address] [address] Monocytes/100 WBC (Bld) 14.0 % High 2.0-13.0 [facility] ([place]) Comment on above: Performed By: #### C BC, ADIFF, PRO, BMP, ANEU, GFR #### [address] [address] Neutrophils/100 WBC (Bld) 52.1 % Normal 50.0-75.0 [facility] ([place] Comment on above: Performed By: #### C BC, ADIFF, PRO, BMP, ANEU, GFR #### [address] [address] .GFRon 07-15-2023 GFR >60 Normal [facility] ([place]) Comment on above: Result Comment: GFR Population [...] BC, ADIFF, PRO, BMP, ANEU, GFR #### [address] [address] GFR Non- >60 Normal [facility] ([place]) Comment on above: Result Comment: GFR Population [...] BC, ADIFF, PRO, BMP, ANEU, GFR #### [address] [address] .NEUABSon 07-15-2023 Neutrophil, Absolute 4.0 10 3/mcL Normal 2.3-8.1 [facility] ([place] Comment on above: Performed By: #### C BC, ADIFF, PRO, BMP, ANEU, GFR #### [address] [address] CBCon 07-15-2023 Erythrocyte distribution width (RBC) [Ratio] 15.2 % Normal 11.5-15.5 [facility] ([place] Comment on above: Performed By: #### C BC, ADIFF, PRO, BMP, ANEU, GFR #### [place] [address] Hematocrit (Bld) [Volume fraction] 35.2 % Normal 34.0-46.0 [facility] ([place] Comment on above: Performed By: #### C BC, ADIFF, PRO, BMP, ANEU, GFR #### [place] [address] Hgb 11.9 G/dL Low 12.0-16.0 [facility] ([place] Comment on above: Performed By: #### C BC, ADIFF, PRO, BMP, ANEU, GFR #### [place] [address] MCH (RBC) [Entitic mass] 30.3 pg Normal 27.0-33.0 [facility] ([place] Comment on above: Performed By: #### C BC, ADIFF, PRO, BMP, ANEU, GFR #### [place] [address] MCHC 33.7 G/dL Normal 32.0-36.0 [facility] ([place] Comment on above: Performed By: #### C BC, ADIFF, PRO, BMP, ANEU, GFR #### [place] [address] MCV (RBC) [Entitic vol] 89.9 fL Normal 80.0-99.0 A [facility] ([place] Comment on above: Performed By: #### C BC, ADIFF, PRO, BMP, ANEU, GFR #### [place] [address] Platelet 358 10 3/mcL Normal 150-450 [facility] ([place]) Comment on above: Performed By: #### C BC, ADIFF, PRO, BMP, ANEU, GFR #### [place] [address] Platelet mean volume (Bld) [Entitic vol] 6.9 fL Normal 6.6-10.5 [facility] ([place] Comment on above: Performed By: #### C BC, ADIFF, PRO, BMP, ANEU, GFR #### [address] [address] RBC 3.92 10 6/mcL Low 4.10-5.30 [facility] ([place]) Comment on above: Performed By: #### C BC, ADIFF, PRO, BMP, ANEU, GFR #### [place] [id number] WBC 7.7 10 3/mcL Normal 4.5-10.8 [facility] ([place] Comment on above: Performed By: #### C BC, ADIFF, PRO, BMP, ANEU, GFR #### [place] [id number] CMPon 07-15-2023 Albumin Level 2.8 G/dL Low 3.2-4.8 [facility] ([place]) Comment on above: Performed By: #### C BC, ADIFF, PRO, BMP, ANEU, GFR #### [place] [address] Albumin/Globulin [Mass ratio] 0.9 {ratio} Normal 0.9-1.6 [facility] ([place] Comment on above: Performed By: #### C BC, ADIFF, PRO, BMP, ANEU, GFR #### [place] [address] ALP [Catalytic activity/Vol] 82 U/L Normal 38-126 [facility] ([place] Comment on above: Performed By: #### C BC, ADIFF, PRO, BMP, ANEU, GFR #### [place] [address] ALT/SGPT <8 Low 10-49 [facility] ([place] Comment on above: Performed By: #### C BC, ADIFF, PRO, BMP, ANEU, GFR #### [place] [id number] AST [Catalytic activity/Vol] 9 U/L Normal 8-34 [facility] ([place] Comment on above: Performed By: #### C BC, ADIFF, PRO, BMP, ANEU, GFR #### [address] [address] Bili Total 0.20 mg/dL Normal 0.20-1.20 [facility] ([place] Comment on above: Result Comment: Use of this assay is not recommended for patients undergoing treatment with eltrombopag due to the potential for falsely elevated results. Performed By: #### C BC, ADIFF, PRO, BMP, ANEU, GFR #### [place] [id number] BUN/Creatinine Ratio 8.1 ratio Low 10.0-22.0 [facility] ([place]) Comment on above: Performed By: #### C BC, ADIFF, PRO, BMP, ANEU, GFR #### [place] [id number] Calcium [Mass/Vol] 9.3 mg/dL Normal 8.7-10.4 [facility] ([place]) Comment on above: Performed By: #### C BC, ADIFF, PRO, BMP, ANEU, GFR #### [place] [id number] Chloride [Moles/Vol] 104 mmol/L Normal 98-110 [facility] ([place]) Comment on above: Performed By: #### C BC, ADIFF, PRO, BMP, ANEU, GFR #### [place] [id number] CO2 [Moles/Vol] 25 mmol/L Normal 22-32 [facility] ([place] Comment on above: Performed By: #### C BC, ADIFF, PRO, BMP, ANEU, GFR #### [address] [address] Creatinine [Mass/Vol] 0.74 mg/dL Normal 0.50-1.20 [facility] ([place] Comment on above: Performed By: #### C BC, ADIFF, PRO, BMP, ANEU, GFR #### [place] [id number] Electrolyte Balance 7.0 mEq/L Normal 4.0-15.0 [facility] ([place] Comment on above: Performed By: #### C BC, ADIFF, PRO, BMP, ANEU, GFR #### [address] [address] Globulin 3.1 G/dL Normal 1.5-3.8 [facility] ([place] Comment on above: Performed By: #### C BC, ADIFF, PRO, BMP, ANEU, GFR #### [address] [address] Glucose [Mass/Vol] 96 mg/dL Normal 70-110 [facility] ([place] Comment on above: Performed By: #### C BC, ADIFF, PRO, BMP, ANEU, GFR #### [address] [address] Potassium [Moles/Vol] 4.4 mmol/L Normal 3.5-5.0 [facility] ([place] Comment on above: Performed By: #### C BC, ADIFF, PRO, BMP, ANEU, GFR #### [address] [address] Sodium [Moles/Vol] 136 mmol/L Normal 136-145 [facility] ([place] Comment on above: Performed By: #### C BC, ADIFF, PRO, BMP, ANEU, GFR #### [address] [address] Total Protein 5.9 G/dL Normal 5.7-8.2 [facility] ([place]) Comment on above: Result Comment: No te - New Reference Range in effect 20 Performed By: #### C BC, ADIFF, PRO, BMP, ANEU, GFR #### [address] [address] Urea nitrogen [Mass/Vol] 6.0 mg/dL Low 8.0-22.0 [facility] ([place] Comment on above: Performed By: #### C BC, ADIFF, PRO, BMP, ANEU, GFR #### [address] [address] LABORATORYOrdered By: SYSTEM SYSTEM on 07-15-2023 Albumin BCP dye [Mass/Vol] 2.8 G/dL Invalid Interpretation Code 3.2 - 4.8 G/dL AH ADM SS Albumin/Globulin [Mass ratio] 0.9 {ratio} Invalid Interpretation Code 0.9 - 1.6 ratio ADM SS ALP [Catalytic activity/Vol] 82 U/L [...] - 450 10^3/mcL Workflow SS Potassium [Moles/Vol] 4.4 mmol/L Invalid [...] 07-15-2023 Magnesium [Mass/Vol] 2.0 mg/dL Normal 1.6-2.4 [facility] ([place]) Comment on above: Performed By: #### C BC, ADIFF, PRO, BMP, ANEU, GFR #### [address] [address] PHOSon 07-15-2023 Phosphate [Mass/Vol] 5.0 mg/dL Normal 2.4-5.1 [facility] ([place]) Comment on above: Result Comment: No te - New Reference Range in effect 20 Performed By: #### C BC, ADIFF, PRO, BMP, ANEU, GFR #### [address] [address] .Auto Diffon 07-14-2023 Basophil, Absolute 0.1 10 3/mcL Normal 0.0-0.3 [facility] ([place]) Comment on above: Performed By: #### C BC, ADIFF, PRO, BMP, ANEU, GFR #### [address] [address] Basophils/100 WBC (Bld) 0.8 % Normal 0.0-2.5 A [facility] ([place] Comment on above: Performed By: #### C BC, ADIFF, PRO, BMP, ANEU, GFR #### [address] [address] Eosinophil, Absolute 0.5 10 3/mcL Normal 0.0-0.7 [facility] ([place] Comment on above: Performed By: #### C BC, ADIFF, PRO, BMP, ANEU, GFR #### [address] [address] Eosinophils/100 WBC (Bld) 6.0 % Normal 0.0-6.0 [facility] ([place] Comment on above: Performed By: #### C BC, ADIFF, PRO, BMP, ANEU, GFR #### [address] [address] Lymphocyte, Absolute 1.6 10 3/mcL Normal 0.9-4.3 [facility] ([place] Comment on above: Performed By: #### C BC, ADIFF, PRO, BMP, ANEU, GFR #### [address] [address] Lymphocytes/100 WBC (Bld) 21.0 % Normal 20.0-40.0 [facility] ([place] Comment on above: Performed By: #### C BC, ADIFF, PRO, BMP, ANEU, GFR #### [address] [address] Monocyte, Absolute 1.1 10 3/mcL Normal 0.1-1.4 [facility] ([place]) Comment on above: Performed By: #### C BC, ADIFF, PRO, BMP, ANEU, GFR #### [address] [address] Monocytes/100 WBC (Bld) 14.0 % High 2.0-13.0 A [facility] ([place] Comment on above: Performed By: #### C BC, ADIFF, PRO, BMP, ANEU, GFR #### [address] [address] Neutrophils/100 WBC (Bld) 58.2 % Normal 50.0-75.0 [facility] ([place] Comment on above: Performed By: #### C BC, ADIFF, PRO, BMP, ANEU, GFR #### [address] [address] .GFRon 07-14-2023 GFR Non- >60 Normal [facility] ([place] Comment on above: Result Comment: GFR Population [...] Performed By: #### G FR, BMP #### [address] [address] GFR >60 Normal [facility] ([place] Comment on above: Result Comment: GFR Population [...] Performed By: #### G FR, BMP #### [place] [address] .NEUABSon 07-14-2023 Neutrophil, Absolute 4.5 10 3/mcL Normal 2.3-8.1 [facility] ([place] Comment on above: Performed By: #### C BC, ADIFF, PRO, BMP, ANEU, GFR #### [place] [id number] CBCon 07-14-2023 Erythrocyte distribution width (RBC) [Ratio] 15.4 % Normal 11.5-15.5 [facility] ([place] Comment on above: Performed By: #### C BC, ADIFF, PRO, BMP, ANEU, GFR #### [place] [address] Hematocrit (Bld) [Volume fraction] 36.1 % Normal 34.0-46.0 [facility] ([place] Comment on above: Performed By: #### C BC, ADIFF, PRO, BMP, ANEU, GFR #### [place] [id number] Hgb 12.0 G/dL Normal 12.0-16.0 [facility] ([place] Comment on above: Performed By: #### C BC, ADIFF, PRO, BMP, ANEU, GFR #### [place] [address] MCH (RBC) [Entitic mass] 29.8 pg Normal 27.0-33.0 [facility] ([place] Comment on above: Performed By: #### C BC, ADIFF, PRO, BMP, ANEU, GFR #### [place] [address] MCHC 33.3 G/dL Normal 32.0-36.0 [facility] ([place] Comment on above: Performed By: #### C BC, ADIFF, PRO, BMP, ANEU, GFR #### [place] [address] MCV (RBC) [Entitic vol] 89.6 fL Normal 80.0-99.0 A [facility] ([place] Comment on above: Performed By: #### C BC, ADIFF, PRO, BMP, ANEU, GFR #### [place] [address] Platelet 299 10 3/mcL Normal 150-450 [facility] ([place] Comment on above: Performed By: #### C BC, ADIFF, PRO, BMP, ANEU, GFR #### [place] [address] Platelet mean volume (Bld) [Entitic vol] 7.7 fL Normal 6.6-10.5 [facility] ([place] Comment on above: Performed By: #### C BC, ADIFF, PRO, BMP, ANEU, GFR #### [place] [address] RBC 4.03 10 6/mcL Low 4.10-5.30 [facility] ([place] Comment on above: Performed By: #### C BC, ADIFF, PRO, BMP, ANEU, GFR #### [place] [address] WBC 7.7 10 3/mcL Normal 4.5-10.8 [facility] ([place] Comment on above: Performed By: #### C BC, ADIFF, PRO, BMP, ANEU, GFR #### [address] [address] CMPon 07-14-2023 BUN/Creatinine Ratio Unable to Calculate Normal 10.0-2 2.0 [facility] ([place] Comment on above: Result Comment: Unab le to calculate this test result accurately. Results used to calculate this test are outside the reportable range. Performed By: #### G FR, BMP #### [address] [address] Urea nitrogen [Mass/Vol] mg/dL Low 8.0-22.0 [facility] ([place] Comment on above: Performed By: #### G FR, BMP #### [place] [address] Albumin Level 2.8 G/dL Low 3.2-4.8 [facility] ([place] Comment on above: Performed By: #### G FR, BMP #### [place] [address] Albumin/Globulin [Mass ratio] 0.9 {ratio} Normal 0.9-1.6 [facility] ([place] Comment on above: Performed By: #### G FR, BMP #### [address] [address] ALP [Catalytic activity/Vol] 84 U/L Normal 38-126 [facility] ([place] Comment on above: Performed By: #### G FR, BMP #### [address] [address] ALT/SGPT <8 Low 10-49 [facility] ([place] Comment on above: Performed By: #### G FR, BMP #### [place] [id number] AST [Catalytic activity/Vol] 11 U/L Normal 8-34 [facility] ([place] Comment on above: Performed By: #### G FR, BMP #### [address] [address] Bili Total 0.30 mg/dL Normal 0.20-1.20 [facility] ([place] Comment on above: Result Comment: Use of this assay is not recommended for patients undergoing treatment with eltrombopag due to the potential for falsely elevated results. Performed By: #### Deondre VALDES, BMP #### [place] [address] Calcium [Mass/Vol] 9.2 mg/dL Normal 8.7-10.4 [facility] ([place] Comment on above: Performed By: #### Deondre VALDES, BMP #### [place] [address] Chloride [Moles/Vol] 105 mmol/L Normal 98-110 [facility] ([place] Comment on above: Performed By: #### Deondre VALDES, BMP #### [place] [address] CO2 [Moles/Vol] 26 mmol/L Normal 22-32 [facility] ([place] Comment on above: Performed By: #### Deondre VALDES, BMP #### [place] [address] Creatinine [Mass/Vol] 0.69 mg/dL Normal 0.50-1.20 [facility] ([place] Comment on above: Performed By: #### Deondre VALDES, BMP #### [place] [address] Electrolyte Balance 8.0 mEq/L Normal 4.0-15.0 [facility] ([place] Comment on above: Performed By: #### Deondre VALDES, BMP #### [place] [id number] Globulin 3.1 G/dL Normal 1.5-3.8 [facility] ([place] Comment on above: Performed By: #### Deondre VALDES, BMP #### [place] [address] Glucose [Mass/Vol] 86 mg/dL Normal 70-110 [facility] ([place] Comment on above: Performed By: #### Deonder VALDES, BMP #### [place] [address] Potassium [Moles/Vol] 4.3 mmol/L Normal 3.5-5.0 [facility] ([place] Comment on above: Performed By: #### Deondre VALDES, ZENOBIA #### [facility] [address] [place] [address] Sodium [Moles/Vol] 139 mmol/L Normal 136-145 [facility] ([place] Comment on above: Performed By: #### Deondre VALDES, ZENOBIA #### [facility] [address] [place] [address] Total Protein 5.9 G/dL Normal 5.7-8.2 [facility] ([place] Comment on above: Result Comment: No te - New Reference Range in effect 20 Performed By: #### Deondre VALDES, ZENOBIA #### [address] [address] LABORATORYOrdered By: SYSTEM SYSTEM on 07-14-2023 Albumin [...] (S/P/Bld) [Vol rate/Area] ml/min/1.73sqm Invalid Interpretation Code [facility] S Comment on above: Interpretive Data: [...] (S/P/Bld) [Vol rate/Area] ml/min/1.73sqm Invalid Interpretation Code [facility] S Comment on above: Interpretive Data: [...] 1.5 - 3.8 G/dL AH ADM SS Glucose [Mass/Vol] 86 mg/dL Invalid [...] 10^3/mcL AH Workflow SS Lymphocytes/100 WBC (Bld) 21.0 % [...] 07-14-2023 Magnesium [Mass/Vol] 2.0 mg/dL Normal 1.6-2.4 [facility] ([place]) Comment on above: Performed By: #### C BC, CHEN, PRO, BMP, ANEU, GFR #### [place] [address] PHOSon 07-14-2023 Phosphate [Mass/Vol] 5.3 mg/dL High 2.4-5.1 [facility] ([place]) Comment on above: Result Comment: No te - New Reference Range in effect 20 Performed By: #### C BC, ADIFF, PRO, BMP, ANEU, GFR #### [address] [address] .Auto Diffon 07-13-2023 Basophil, Absolute 0.1 10 3/mcL Normal 0.0-0.3 [facility] ([place]) Comment on above: Performed By: #### C BC, ADIFF, PRO, BMP, ANEU, GFR #### [address] [address] Basophils/100 WBC (Bld) 1.2 % Normal 0.0-2.5 A [facility], [facility] ([place]) Comment on above: Performed By: #### C BC, ADIFF, PRO, BMP, ANEU, GFR #### [address] [address] Eosinophil, Absolute 0.5 10 3/mcL Normal 0.0-0.7 [facility] ([place]) Comment on above: Performed By: #### C BC, ADIFF, PRO, BMP, ANEU, GFR #### [address] [address] Eosinophils/100 WBC (Bld) 5.6 % Normal 0.0-6.0 [facility] ([place]) Comment on above: Performed By: #### C BC, ADIFF, PRO, BMP, ANEU, GFR #### [address] [address] Lymphocyte, Absolute 1.5 10 3/mcL Normal 0.9-4.3 [facility] ([place]) Comment on above: Performed By: #### C BC, ADIFF, PRO, BMP, ANEU, GFR #### [address] [address] Lymphocytes/100 WBC (Bld) 18.4 % Low 20.0-40.0 [facility] ([place]) Comment on above: Performed By: #### C BC, ADIFF, PRO, BMP, ANEU, GFR #### [address] [address] Monocyte, Absolute 0.8 10 3/mcL Normal 0.1-1.4 [facility] ([place]) Comment on above: Performed By: #### C BC, ADIFF, PRO, BMP, ANEU, GFR #### [address] [address] Monocytes/100 WBC (Bld) 10.2 % Normal 2.0-13.0 A [facility], [facility] ([place]) Comment on above: Performed By: #### C BC, ADIFF, PRO, BMP, ANEU, GFR #### [address] [address] Neutrophils/100 WBC (Bld) 64.6 % Normal 50.0-75.0 [facility] ([place]) Comment on above: Performed By: #### C BC, ADIFF, PRO, BMP, ANEU, GFR #### [address] [address] .GFRon 07-13-2023 GFR >60 Normal [facility] ([place]) Comment on above: Result Comment: GFR Population [...] BC, ADIFF, PRO, BMP, ANEU, GFR #### [address] [address] GFR Non- >60 Normal [facility] ([place] Comment on above: Result Comment: GFR Population [...] BC, ADIFF, PRO, BMP, ANEU, GFR #### [place] [address] .NEUABSon 07-13-2023 Neutrophil, Absolute 5.2 10 3/mcL Normal 2.3-8.1 [facility] ([place] Comment on above: Performed By: #### C BC, ADIFF, PRO, BMP, ANEU, GFR #### [place] [address] CBCon 07-13-2023 Erythrocyte distribution width (RBC) [Ratio] 15.3 % Normal 11.5-15.5 [facility] ([place] Comment on above: Performed By: #### C BC, ADIFF, PRO, BMP, ANEU, GFR #### [place] [address] Hematocrit (Bld) [Volume fraction] 35.2 % Normal 34.0-46.0 [facility] ([place] Comment on above: Performed By: #### C BC, ADIFF, PRO, BMP, ANEU, GFR #### [place] [address] Hgb 11.5 G/dL Low 12.0-16.0 [facility] ([place] Comment on above: Performed By: #### C BC, ADIFF, PRO, BMP, ANEU, GFR #### [place] [address] MCH (RBC) [Entitic mass] 29.5 pg Normal 27.0-33.0 [facility] ([place] Comment on above: Performed By: #### C BC, ADIFF, PRO, BMP, ANEU, GFR #### [place] [address] MCHC 32.6 G/dL Normal 32.0-36.0 [facility] ([place] Comment on above: Performed By: #### C BC, ADIFF, PRO, BMP, ANEU, GFR #### [place] [address] MCV (RBC) [Entitic vol] 90.5 fL Normal 80.0-99.0 A [facility] ([place]) Comment on above: Performed By: #### C BC, ADIFF, PRO, BMP, ANEU, GFR #### [place] [address] Platelet 295 10 3/mcL Normal 150-450 [facility] ([place]) Comment on above: Performed By: #### C BC, ADIFF, PRO, BMP, ANEU, GFR #### [place] [address] Platelet mean volume (Bld) [Entitic vol] 7.8 fL Normal 6.6-10.5 [facility] ([place]) Comment on above: Performed By: #### C BC, ADIFF, PRO, BMP, ANEU, GFR #### [place] [address] RBC 3.89 10 6/mcL Low 4.10-5.30 [facility] ([place]) Comment on above: Performed By: #### C BC, ADIFF, PRO, BMP, ANEU, GFR #### [place] [address] WBC 8.1 10 3/mcL Normal 4.5-10.8 [facility] ([place] Comment on above: Performed By: #### C BC, ADIFF, PRO, BMP, ANEU, GFR #### [place] [address] CMPon 07-13-2023 BUN/Creatinine Ratio Unable to Calculate Normal 10.0-2 2.0 [facility] ([place] Comment on above: Result Comment: Unab le to calculate this test result accurately. Results used to calculate this test are outside the reportable range. Performed By: #### C BC, ADIFF, PRO, BMP, ANEU, GFR #### [place] [address] Urea nitrogen [Mass/Vol] mg/dL Low 8.0-22.0 [facility] ([place] Comment on above: Performed By: #### C BC, ADIFF, PRO, BMP, ANEU, GFR #### [place] [id number] Albumin Level 2.6 G/dL Low 3.2-4.8 [facility] ([place] Comment on above: Performed By: #### C BC, ADIFF, PRO, BMP, ANEU, GFR #### [place] [id number] Albumin/Globulin [Mass ratio] 1.0 {ratio} Normal 0.9-1.6 [facility] ([place] Comment on above: Performed By: #### C BC, ADIFF, PRO, BMP, ANEU, GFR #### [place] [id number] ALP [Catalytic activity/Vol] 78 U/L Normal 38-126 [facility] ([place] Comment on above: Performed By: #### C BC, ADIFF, PRO, BMP, ANEU, GFR #### [place] [address] ALT/SGPT <8 Low 10-49 [facility] ([place] Comment on above: Performed By: #### C BC, ADIFF, PRO, BMP, ANEU, GFR #### [place] [id number] AST [Catalytic activity/Vol] 9 U/L Normal 8-34 [facility] ([place] Comment on above: Performed By: #### C BC, ADIFF, PRO, BMP, ANEU, GFR #### [place] [id number] Bili Total 0.20 mg/dL Normal 0.20-1.20 [facility] ([place] Comment on above: Result Comment: Use of this assay is not recommended for patients undergoing treatment with eltrombopag due to the potential for falsely elevated results. Performed By: #### C BC, ADIFF, PRO, BMP, ANEU, GFR #### [place] [id number] Calcium [Mass/Vol] 8.7 mg/dL Normal 8.7-10.4 [facility] ([place]) Comment on above: Performed By: #### C BC, ADIFF, PRO, BMP, ANEU, GFR #### [address] [address] Chloride [Moles/Vol] 107 mmol/L Normal 98-110 [facility] ([place]) Comment on above: Performed By: #### C BC, ADIFF, PRO, BMP, ANEU, GFR #### [address] [address] CO2 [Moles/Vol] 25 mmol/L Normal 22-32 [facility] ([place] Comment on above: Performed By: #### C BC, ADIFF, PRO, BMP, ANEU, GFR #### [address] [address] Creatinine [Mass/Vol] 0.73 mg/dL Normal 0.50-1.20 [facility] ([place]) Comment on above: Performed By: #### C BC, ADIFF, PRO, BMP, ANEU, GFR #### [address] [address] Electrolyte Balance 7.0 mEq/L Normal 4.0-15.0 [facility] ([place]) Comment on above: Performed By: #### C BC, ADIFF, PRO, BMP, ANEU, GFR #### [address] [address] Globulin 2.7 G/dL Normal 1.5-3.8 [facility] ([place] Comment on above: Performed By: #### C BC, ADIFF, PRO, BMP, ANEU, GFR #### [address] [address] Glucose [Mass/Vol] 130 mg/dL High 70-110 [facility] ([place]) Comment on above: Performed By: #### C BC, ADIFF, PRO, BMP, ANEU, GFR #### [address] [address] Potassium [Moles/Vol] 3.9 mmol/L Normal 3.5-5.0 [facility] ([place] Comment on above: Performed By: #### C BC, ADIFF, PRO, BMP, ANEU, GFR #### [address] [address] Sodium [Moles/Vol] 139 mmol/L Normal 136-145 [facility] ([place]) Comment on above: Performed By: #### C BC, ADIFF, PRO, BMP, ANEU, GFR #### [address] [address] Total Protein 5.3 G/dL Low 5.7-8.2 [facility] ([place]) Comment on above: Result Comment: No te - New Reference Range in effect 20 Performed By: #### C BC, ADIFF, PRO, BMP, ANEU, GFR #### [place] [id number] MGon 07-13-2023 Magnesium [Mass/Vol] 1.8 mg/dL Normal 1.6-2.4 [facility] ([place]) Comment on above: Performed By: #### C BC, ADIFF, PRO, BMP, ANEU, GFR #### [address] [address] PHOSon 07-13-2023 Phosphate [Mass/Vol] 4.1 mg/dL Normal 2.4-5.1 [facility] ([place]) Comment on above: Result Comment: No te - New Reference Range in effect 20 Performed By: #### C BC, ADIFF, PRO, BMP, ANEU, GFR #### [address] [address] .Auto Diffon 07-12-2023 Basophil, Absolute 0.1 10 3/mcL Normal 0.0-0.3 [facility] ([place]) Comment on above: Performed By: #### C BC, ADIFF, PRO, BMP, ANEU, GFR #### [address] [address] Basophils/100 WBC (Bld) 1.1 % Normal 0.0-2.5 A [facility] ([place]) Comment on above: Performed By: #### C BC, ADIFF, PRO, BMP, ANEU, GFR #### [address] [address] Eosinophil, Absolute 0.6 10 3/mcL Normal 0.0-0.7 [facility] ([place]) Comment on above: Performed By: #### C BC, ADIFF, PRO, BMP, ANEU, GFR #### [address] [address] Eosinophils/100 WBC (Bld) 8.1 % High 0.0-6.0 [facility] ([place] Comment on above: Performed By: #### C BC, ADIFF, PRO, BMP, ANEU, GFR #### [address] [address] Lymphocyte, Absolute 1.4 10 3/mcL Normal 0.9-4.3 [facility] ([place] Comment on above: Performed By: #### C BC, ADIFF, PRO, BMP, ANEU, GFR #### [address] [address] Lymphocytes/100 WBC (Bld) 18.4 % Low 20.0-40.0 [facility] ([place] Comment on above: Performed By: #### C BC, ADIFF, PRO, BMP, ANEU, GFR #### [address] [address] Monocyte, Absolute 0.7 10 3/mcL Normal 0.1-1.4 [facility] ([place]) Comment on above: Performed By: #### C BC, ADIFF, PRO, BMP, ANEU, GFR #### [address] [address] Monocytes/100 WBC (Bld) 9.0 % Normal 2.0-13.0 [facility] ([place]) Comment on above: Performed By: #### C BC, ADIFF, PRO, BMP, ANEU, GFR #### [address] [address] Neutrophils/100 WBC (Bld) 63.4 % Normal 50.0-75.0 [facility] ([place]) Comment on above: Performed By: #### C BC, ADIFF, PRO, BMP, ANEU, GFR #### [address] [address] .GFRon 07-12-2023 GFR >60 Normal [facility] ([place]) Comment on above: Result Comment: GFR Population [...] BC, ADIFF, PRO, BMP, ANEU, GFR #### [place] [address] GFR Non- >60 Normal [facility] ([place] Comment on above: Result Comment: GFR Population [...] BC, ADIFF, PRO, BMP, ANEU, GFR #### [place] [address] .NEUABSon 07-12-2023 Neutrophil, Absolute 4.8 10 3/mcL Normal 2.3-8.1 [facility] ([place] Comment on above: Performed By: #### C BC, ADIFF, PRO, BMP, ANEU, GFR #### [address] [address] CBCon 07-12-2023 Erythrocyte distribution width (RBC) [Ratio] 15.7 % High 11.5-15.5 [facility] ([place] Comment on above: Performed By: #### C BC, ADIFF, PRO, BMP, ANEU, GFR #### [place] [address] Hematocrit (Bld) [Volume fraction] 35.4 % Normal 34.0-46.0 [facility] ([place]) Comment on above: Performed By: #### C BC, ADIFF, PRO, BMP, ANEU, GFR #### [place] [address] Hgb 11.6 G/dL Low 12.0-16.0 [facility] ([place] Comment on above: Performed By: #### C BC, ADIFF, PRO, BMP, ANEU, GFR #### [place] [address] MCH (RBC) [Entitic mass] 29.9 pg Normal 27.0-33.0 [facility] ([place]) Comment on above: Performed By: #### C BC, ADIFF, PRO, BMP, ANEU, GFR #### [place] [address] MCHC 32.6 G/dL Normal 32.0-36.0 [facility] ([place] Comment on above: Performed By: #### C BC, ADIFF, PRO, BMP, ANEU, GFR #### [place] [address] MCV (RBC) [Entitic vol] 91.5 fL Normal 80.0-99.0 A [facility] ([place]) Comment on above: Performed By: #### C BC, ADIFF, PRO, BMP, ANEU, GFR #### [place] [id number] Platelet 251 10 3/mcL Normal 150-450 [facility] ([place] Comment on above: Performed By: #### C BC, ADIFF, PRO, BMP, ANEU, GFR #### [place] [address] Platelet mean volume (Bld) [Entitic vol] 7.6 fL Normal 6.6-10.5 [facility] ([place] Comment on above: Performed By: #### C BC, ADIFF, PRO, BMP, ANEU, GFR #### [address] [address] RBC 3.87 10 6/mcL Low 4.10-5.30 [facility] ([place] Comment on above: Performed By: #### C BC, ADIFF, PRO, BMP, ANEU, GFR #### [place] [address] WBC 7.5 10 3/mcL Normal 4.5-10.8 [facility] ([place]) Comment on above: Performed By: #### C BC, ADIFF, PRO, BMP, ANEU, GFR #### [address] [address] CMPon 07-12-2023 Albumin Level 2.5 G/dL Low 3.2-4.8 [facility] ([place] Comment on above: Performed By: #### C BC, ADIFF, PRO, BMP, ANEU, GFR #### [place] [address] Albumin/Globulin [Mass ratio] 0.9 {ratio} Normal 0.9-1.6 [facility] ([place] Comment on above: Performed By: #### C BC, ADIFF, PRO, BMP, ANEU, GFR #### [address] [address] ALP [Catalytic activity/Vol] 78 U/L Normal 38-126 [facility] ([place] Comment on above: Performed By: #### C BC, ADIFF, PRO, BMP, ANEU, GFR #### [place] [id number] ALT/SGPT <8 Low 10-49 [facility] ([place] Comment on above: Performed By: #### C BC, ADIFF, PRO, BMP, ANEU, GFR #### [place] [id number] AST [Catalytic activity/Vol] 10 U/L Normal 8-34 [facility] ([place] Comment on above: Performed By: #### C BC, ADIFF, PRO, BMP, ANEU, GFR #### [address] [address] Bili Total <0.20 Normal 0.20-1.20 [facility] ([place] Comment on above: Result Comment: Use of this assay is not recommended for patients undergoing treatment with eltrombopag due to the potential for falsely elevated results. Performed By: #### C BC, ADIFF, PRO, BMP, ANEU, GFR #### [place] [id number] BUN/Creatinine Ratio 10.8 ratio Normal 10.0-22.0 [facility] ([place]) Comment on above: Performed By: #### C BC, ADIFF, PRO, BMP, ANEU, GFR #### [place] [id number] Calcium [Mass/Vol] 8.6 mg/dL Low 8.7-10.4 [facility] ([place] Comment on above: Performed By: #### C BC, ADIFF, PRO, BMP, ANEU, GFR #### [place] [id number] Chloride [Moles/Vol] 109 mmol/L Normal 98-110 [facility] ([place]) Comment on above: Performed By: #### C BC, ADIFF, PRO, BMP, ANEU, GFR #### [place] [id number] CO2 [Moles/Vol] 23 mmol/L Normal 22-32 [facility] ([place] Comment on above: Performed By: #### C BC, ADIFF, PRO, BMP, ANEU, GFR #### [address] [address] Creatinine [Mass/Vol] 0.74 mg/dL Normal 0.50-1.20 [facility] ([place] Comment on above: Performed By: #### C BC, ADIFF, PRO, BMP, ANEU, GFR #### [place] [id number] Electrolyte Balance 9.0 mEq/L Normal 4.0-15.0 [facility] ([place] Comment on above: Performed By: #### C BC, ADIFF, PRO, BMP, ANEU, GFR #### [address] [address] Globulin 2.7 G/dL Normal 1.5-3.8 [facility] ([place] Comment on above: Performed By: #### C BC, ADIFF, PRO, BMP, ANEU, GFR #### [address] [address] Glucose [Mass/Vol] 86 mg/dL Normal 70-110 [facility] ([place] Comment on above: Performed By: #### C BC, ADIFF, PRO, BMP, ANEU, GFR #### [address] [address] Potassium [Moles/Vol] 4.4 mmol/L Normal 3.5-5.0 [facility] ([place] Comment on above: Performed By: #### C BC, ADIFF, PRO, BMP, ANEU, GFR #### [place] [id number] Sodium [Moles/Vol] 141 mmol/L Normal 136-145 [facility] ([place] Comment on above: Performed By: #### C BC, ADIFF, PRO, BMP, ANEU, GFR #### [address] [address] Total Protein 5.2 G/dL Low 5.7-8.2 [facility] ([place]) Comment on above: Result Comment: No te - New Reference Range in effect 20 Performed By: #### C BC, ADIFF, PRO, BMP, ANEU, GFR #### [address] [address] Urea nitrogen [Mass/Vol] 8.0 mg/dL Normal 8.0-22.0 [facility] ([place] Comment on above: Performed By: #### C BC, ADIFF, PRO, BMP, ANEU, GFR #### [address] [address] MGon 07-12-2023 Magnesium [Mass/Vol] 2.0 mg/dL Normal 1.6-2.4 [facility] ([place]) Comment on above: Performed By: #### C BC, ADIFF, PRO, BMP, ANEU, GFR #### [place] [address] PHOSon 07-12-2023 Phosphate [Mass/Vol] 4.1 mg/dL Normal 2.4-5.1 [facility] ([place]) Comment on above: Result Comment: No te - New Reference Range in effect 20 Performed By: #### C BC, ADIFF, PRO, BMP, ANEU, GFR #### [place] [address] .Auto Diffon 07-11-2023 Basophil, Absolute 0.1 10 3/mcL Normal 0.0-0.3 [facility] ([place]) Comment on above: Performed By: #### C BC, ADIFF, PRO, BMP, ANEU, GFR #### [place] [address] Basophils/100 WBC (Bld) 0.8 % Normal 0.0-2.5 A [facility] ([place] Comment on above: Performed By: #### C BC, ADIFF, PRO, BMP, ANEU, GFR #### [place] [address] Eosinophil, Absolute 0.6 10 3/mcL Normal 0.0-0.7 [facility] ([place] Comment on above: Performed By: #### C BC, ADIFF, PRO, BMP, ANEU, GFR #### [place] [address] Eosinophils/100 WBC (Bld) 5.9 % Normal 0.0-6.0 [facility] ([place] Comment on above: Performed By: #### C BC, ADIFF, PRO, BMP, ANEU, GFR #### [place] [address] Lymphocyte, Absolute 1.3 10 3/mcL Normal 0.9-4.3 [facility] ([place]) Comment on above: Performed By: #### C BC, ADIFF, PRO, BMP, ANEU, GFR #### [place] [id number] [address] [place] [address] Lymphocytes/100 WBC (Bld) 12.3 % Low 20.0-40.0 [facility] ([place] Comment on above: Performed By: #### C BC, ADIFF, PRO, BMP, ANEU, GFR #### [place] [id number] [address] [place] [address] Monocyte, Absolute 1.2 10 3/mcL Normal 0.1-1.4 [facility] ([place] Comment on above: Performed By: #### C BC, ADIFF, PRO, BMP, ANEU, GFR #### [address] [address] Monocytes/100 WBC (Bld) 11.5 % Normal 2.0-13.0 [facility] ([place] Comment on above: Performed By: #### C BC, ADIFF, PRO, BMP, ANEU, GFR #### [address] [address] Neutrophils/100 WBC (Bld) 69.5 % Normal 50.0-75.0 [facility] ([place] Comment on above: Performed By: #### C BC, ADIFF, PRO, BMP, ANEU, GFR #### [address] [address] .GFRon 07-11-2023 GFR Non- >60 Normal [facility] ([place] Comment on above: Result Comment: GFR Population [...] BC, ADIFF, PRO, BMP, ANEU, GFR #### [address] [address] GFR >60 Normal [facility] ([place]) Comment on above: Result Comment: GFR Population [...] BC, ADIFF, PRO, BMP, ANEU, GFR #### [address] [address] .NEUABSon 07-11-2023 Neutrophil, Absolute 7.1 10 3/mcL Normal 2.3-8.1 [facility] ([place] Comment on above: Performed By: #### C BC, ADIFF, PRO, BMP, ANEU, GFR #### [place] [id number] CBCon 07-11-2023 Erythrocyte distribution width (RBC) [Ratio] 15.7 % High 11.5-15.5 [facility] ([place] Comment on above: Performed By: #### C BC, ADIFF, PRO, BMP, ANEU, GFR #### [address] [address] Hematocrit (Bld) [Volume fraction] 37.2 % Normal 34.0-46.0 [facility] ([place] Comment on above: Performed By: #### C BC, ADIFF, PRO, BMP, ANEU, GFR #### [address] [address] Hgb 12.2 G/dL Normal 12.0-16.0 [facility] ([place] Comment on above: Performed By: #### C BC, ADIFF, PRO, BMP, ANEU, GFR #### [place] [address] MCH (RBC) [Entitic mass] 29.9 pg Normal 27.0-33.0 [facility] ([place] Comment on above: Performed By: #### C BC, ADIFF, PRO, BMP, ANEU, GFR #### [place] [address] MCHC 32.9 G/dL Normal 32.0-36.0 [facility] ([place] Comment on above: Performed By: #### C BC, ADIFF, PRO, BMP, ANEU, GFR #### [place] [address] MCV (RBC) [Entitic vol] 90.8 fL Normal 80.0-99.0 A [facility] ([place] Comment on above: Performed By: #### C BC, ADIFF, PRO, BMP, ANEU, GFR #### [place] [address] Platelet 226 10 3/mcL Normal 150-450 [facility] ([place]) Comment on above: Performed By: #### C BC, ADIFF, PRO, BMP, ANEU, GFR #### [place] [address] Platelet mean volume (Bld) [Entitic vol] 7.6 fL Normal 6.6-10.5 [facility] ([place] Comment on above: Performed By: #### C BC, ADIFF, PRO, BMP, ANEU, GFR #### [place] [address] RBC 4.10 10 6/mcL Normal 4.10-5.30 [facility] ([place]) Comment on above: Performed By: #### C BC, ADIFF, PRO, BMP, ANEU, GFR #### [place] [address] WBC 10.3 10 3/mcL Normal 4.5-10.8 [facility] ([place] Comment on above: Performed By: #### C BC, ADIFF, PRO, BMP, ANEU, GFR #### [place] [address] CMPon 09-08-2023 Albumin Level 2.7 G/dL Low 3.2-4.8 [facility] ([place] Comment on above: Performed By: #### C BC, ADIFF, PRO, BMP, ANEU, GFR #### [place] [address] Albumin/Globulin [Mass ratio] 1.0 {ratio} Normal 0.9-1.6 [facility] ([place] Comment on above: Performed By: #### C BC, ADIFF, PRO, BMP, ANEU, GFR #### [place] [address] ALP [Catalytic activity/Vol] 85 U/L Normal 38-126 [facility] ([place] Comment on above: Performed By: #### C BC, ADIFF, PRO, BMP, ANEU, GFR #### [place] [address] ALT/SGPT <8 Low 10-49 [facility] ([place] Comment on above: Performed By: #### C BC, ADIFF, PRO, BMP, ANEU, GFR #### [place] [address] AST [Catalytic activity/Vol] 12 U/L Normal 8-34 [facility] ([place] Comment on above: Performed By: #### C BC, ADIFF, PRO, BMP, ANEU, GFR #### [place] [address] Bili Total 0.20 mg/dL Normal 0.20-1.20 [facility] ([place] Comment on above: Result Comment: Use of this assay is not recommended for patients undergoing treatment with eltrombopag due to the potential for falsely elevated results. Performed By: #### C BC, ADIFF, PRO, BMP, ANEU, GFR #### [place] [address] BUN/Creatinine Ratio 8.3 ratio Low 10.0-22.0 [facility] ([place]) Comment on above: Performed By: #### C BC, ADIFF, PRO, BMP, ANEU, GFR #### [place] [id number] Calcium [Mass/Vol] 8.7 mg/dL Normal 8.7-10.4 [facility] ([place] Comment on above: Performed By: #### C BC, ADIFF, PRO, BMP, ANEU, GFR #### [address] [address] Chloride [Moles/Vol] 107 mmol/L Normal 98-110 [facility] ([place] Comment on above: Performed By: #### C BC, ADIFF, PRO, BMP, ANEU, GFR #### [address] [address] CO2 [Moles/Vol] 24 mmol/L Normal 22-32 [facility] ([place] Comment on above: Performed By: #### C BC, ADIFF, PRO, BMP, ANEU, GFR #### [address] [address] Creatinine [Mass/Vol] 0.84 mg/dL Normal 0.50-1.20 [facility] ([place] Comment on above: Performed By: #### C BC, ADIFF, PRO, BMP, ANEU, GFR #### [address] [address] Electrolyte Balance 7.0 mEq/L Normal 4.0-15.0 [facility] ([place] Comment on above: Performed By: #### C BC, ADIFF, PRO, BMP, ANEU, GFR #### [address] [address] Globulin 2.7 G/dL Normal 1.5-3.8 [facility] ([place] Comment on above: Performed By: #### C BC, ADIFF, PRO, BMP, ANEU, GFR #### [address] [address] Glucose [Mass/Vol] 104 mg/dL Normal 70-110 [facility] ([place] Comment on above: Performed By: #### C BC, ADIFF, PRO, BMP, ANEU, GFR #### [address] [address] Potassium [Moles/Vol] 4.2 mmol/L Normal 3.5-5.0 [facility] ([place] Comment on above: Result Comment: Spec imen slightly hemolyzed. Performed By: #### C BC, ADIFF, PRO, BMP, ANEU, GFR #### [address] [address] Sodium [Moles/Vol] 138 mmol/L Normal 136-145 [facility] ([place] Comment on above: Performed By: #### C BC, ADIFF, PRO, BMP, ANEU, GFR #### [address] [address] Total Protein 5.4 G/dL Low 5.7-8.2 [facility] ([place] Comment on above: Result Comment: No te - New Reference Range in effect 20 Performed By: #### C BC, ADIFF, PRO, BMP, ANEU, GFR #### [place] [address] Urea nitrogen [Mass/Vol] 7.0 mg/dL Low 8.0-22.0 [facility] ([place] Comment on above: Performed By: #### C BC, ADIFF, PRO, BMP, ANEU, GFR #### [place] [address] MGon 07-11-2023 Magnesium [Mass/Vol] 2.1 mg/dL Normal 1.6-2.4 [facility] ([place]) Comment on above: Performed By: #### C BC, ADIFF, PRO, BMP, ANEU, GFR #### [address] [address] PHOSon 07-11-2023 Phosphate [Mass/Vol] 3.4 mg/dL Normal 2.4-5.1 [facility] ([place]) Comment on above: Result Comment: No te - New Reference Range in effect 20 Performed By: #### C BC, ADIFF, PRO, BMP, ANEU, GFR #### [address] [id number] .Auto Diffon 07-10-2023 Basophil, Absolute 0.0 10 3/mcL Normal 0.0-0.3 [facility] ([place]) Comment on above: Performed By: #### U OXYS, DRUGU #### [address] [id number] Basophils/100 WBC (Bld) 0.3 % Normal 0.0-2.5 A [facility] 1928–1983 ([place]) Comment on above: Performed By: #### U OXYS, DRUGU #### [address] [address] Eosinophil, Absolute 0.3 10 3/mcL Normal 0.0-0.7 [facility] ([place] Comment on above: Performed By: #### U OXYS, DRUGU #### [address] [address] Eosinophils/100 WBC (Bld) 3.5 % Normal 0.0-6.0 [facility] ([place]) Comment on above: Performed By: #### U OXYS, DRUGU #### [address] [address] Lymphocyte, Absolute 0.6 10 3/mcL Low 0.9-4.3 [facility] ([place] Comment on above: Performed By: #### U OXYS, DRUGU #### [address] [address] Lymphocytes/100 WBC (Bld) 6.8 % Low 20.0-40.0 [facility] ([place] Comment on above: Performed By: #### U OXYS, DRUGU #### [address] [address] Monocyte, Absolute 0.6 10 3/mcL Normal 0.1-1.4 [facility] ([place]) Comment on above: Performed By: #### U OXYS, DRUGU #### [address] [address] Monocytes/100 WBC (Bld) 7.6 % Normal 2.0-13.0 A [facility] ([place]) Comment on above: Performed By: #### U OXYS, DRUGU #### [address] [address] Neutrophils/100 WBC (Bld) 81.8 % High 50.0-75.0 [facility] ([place] Comment on above: Performed By: #### JAY OZUNA #### [address] [address] .GFRon 07-10-2023 GFR >60 Normal [facility] ([place]) Comment on above: Result Comment: GFR Population [...] meters Performed By: #### JAY OZUNA #### [address] [address] GFR Non- >60 Normal [facility] ([place] Comment on above: Result Comment: GFR Population [...] meters Performed By: #### JAY OZUNA #### [address] [address] .NEUABSon 07-10-2023 Neutrophil, Absolute 6.7 10 3/mcL Normal 2.3-8.1 [facility] ([place] Comment on above: Performed By: #### Rere VEGAS DRUGU #### [address] [address] CBCon 07-10-2023 Erythrocyte distribution width (RBC) [Ratio] 16.6 % High 11.5-15.5 [facility] ([place] Comment on above: Performed By: #### U OXYS, DRUGU #### [address] [address] Hematocrit (Bld) [Volume fraction] 35.0 % Normal 34.0-46.0 [facility] ([place] Comment on above: Performed By: #### U OXYS DRUGU #### [place] [id number] Hgb 10.4 G/dL Low 12.0-16.0 [facility] ([place] Comment on above: Performed By: #### U OXYYesenia DRUGU #### [address] [address] MCH (RBC) [Entitic mass] 29.8 pg Normal 27.0-33.0 [facility] ([place] Comment on above: Performed By: #### U OXYYesenia DRUGU #### [place] [id number] MCHC 29.6 G/dL Low 32.0-36.0 [facility] ([place] Comment on above: Performed By: #### U OXYYesenia DRUGU #### [address] [address] MCV (RBC) [Entitic vol] 100.6 fL High 80.0-99.0 A [facility] ([place] Comment on above: Performed By: #### U OXYS DRUGU #### [address] [address] Platelet 220 10 3/mcL Normal 150-450 [facility] ([place] Comment on above: Performed By: #### U OXYS DRUGU #### [address] [address] Platelet mean volume (Bld) [Entitic vol] 6.8 fL Normal 6.6-10.5 [facility] ([place] Comment on above: Performed By: #### U OXYS, DRUGU #### [address] [address] RBC 3.48 10 6/mcL Low 4.10-5.30 [facility] ([place] Comment on above: Performed By: #### U OXYS, DRUGU #### [address] [address] WBC 8.2 10 3/mcL Normal 4.5-10.8 [facility] ([place] Comment on above: Performed By: #### U OXYS, DRUGU #### [address] [address] CMPon 07-10-2023 Albumin Level 3.1 G/dL Low 3.2-4.8 [facility] ([place] Comment on above: Order Comment: Conta minated - nurse draw - notified Rocio Pantoja 07/10/2023 06:20:49 EDT Performed By: #### U OXYS, DRUGU #### [place] [id number] Albumin/Globulin [Mass ratio] 1.1 {ratio} Normal 0.9-1.6 [facility] ([place] Comment on above: Order Comment: Conta minated - nurse draw - notified Rocio Pantoja 07/10/2023 06:20:49 EDT Performed By: #### U OXYS, DRUGU #### [address] [address] ALP [Catalytic activity/Vol] 95 U/L Normal 38-126 [facility] ([place] Comment on above: Order Comment: Conta minated - nurse draw - notified Rocio Pantoja 07/10/2023 06:20:49 EDT Performed By: #### U OXYS, DRUGU #### [address] [address] ALT/SGPT <8 Low 10-49 [facility] ([place] Comment on above: Order Comment: Conta minated - nurse draw - notified Rocio Pantoja 07/10/2023 06:20:49 EDT Performed By: #### U OXYS, DRUGU #### [address] [address] AST [Catalytic activity/Vol] 15 U/L Normal 8-34 [facility] ([place] Comment on above: Order Comment: Conta minated - nurse draw - notified Rocio Pantoja 07/10/2023 06:20:49 EDT Performed By: #### U OXYS, DRUGU #### [address] [address] Bili Total 0.30 mg/dL Normal 0.20-1.20 [facility] ([place]) Comment on above: Order Comment: Conta minated - nurse draw - notified Rocio Rialto 07/10/2023 06:20:49 EDT Result Comment: Use of this assay is not recommended for patients undergoing treatment with eltrombopag due to the potential for falsely elevated results. Performed By: #### U OXYS DRUGU #### [place] [phone] BUN/Creatinine Ratio 6.9 ratio Low 10.0-22.0 [facility] ([place]) Comment on above: Order Comment: Conta minated - nurse draw - notified Rocio Rialto 07/10/2023 06:20:49 EDT Performed By: #### U ADRIAN DRUGU #### [address] [address] Calcium [Mass/Vol] 8.8 mg/dL Normal 8.7-10.4 [facility] ([place]) Comment on above: Order Comment: Conta minated - nurse draw - notified Rocio Pantoja 07/10/2023 06:20:49 EDT Performed By: #### U OXYS, DRUGU #### [address] [address] Chloride [Moles/Vol] 106 mmol/L Normal 98-110 [facility] ([place]) Comment on above: Order Comment: Conta minated - nurse draw - notified Rocio Pantoja 07/10/2023 06:20:49 EDT Performed By: #### U OXYS, DRUGU #### [address] [address] CO2 [Moles/Vol] 20 mmol/L Low 22-32 [facility] ([place] Comment on above: Order Comment: Conta minated - nurse draw - notified Rocio Pantoja 07/10/2023 06:20:49 EDT Performed By: #### U OXYS, DRUGU #### [address] [address] Creatinine [Mass/Vol] 0.87 mg/dL Normal 0.50-1.20 [facility] ([place]) Comment on above: Order Comment: Conta minated - nurse draw - notified Rocio Pantoja 07/10/2023 06:20:49 EDT Performed By: #### U OXYS, DRUGU #### [address] [address] Electrolyte Balance 10.0 mEq/L Normal 4.0-15.0 [facility] ([place]) Comment on above: Order Comment: Conta minated - nurse draw - notified Rocio Pantoja 07/10/2023 06:20:49 EDT Performed By: #### U OXYS, DRUGU #### [address] [address] Globulin 2.8 G/dL Normal 1.5-3.8 [facility] ([place] Comment on above: Order Comment: Conta minated - nurse draw - notified Rocio Pantoja 07/10/2023 06:20:49 EDT Performed By: #### U OXYS, DRUGU #### [address] [address] Glucose [Mass/Vol] 95 mg/dL Normal 70-110 [facility] ([place] Comment on above: Order Comment: Conta minated - nurse draw - notified Rocio Pantoja 07/10/2023 06:20:49 EDT Performed By: #### U OXYS, DRUGU #### [address] [address] Potassium [Moles/Vol] 4.0 mmol/L Normal 3.5-5.0 [facility] ([place] Comment [place] above: Order Comment: Conta minated - nurse draw - notified Rocio Pantoja 07/10/2023 06:20:49 EDT Performed By: #### U OXYS, DRUGU #### [address] [address] Sodium [Moles/Vol] 136 mmol/L Normal 136-145 [facility] ([place] Comment on above: Order Comment: Conta minated - nurse draw - notified Rocio Pantoja 07/10/2023 06:20:49 EDT Performed By: #### U OXYS, DRUGU #### [address] [address] Total Protein 5.9 G/dL Normal 5.7-8.2 [facility] ([place] Comment on above: Order Comment: Conta minated - nurse draw - notified Rocio Rialto 07/10/2023 06:20:49 EDT Result Comment: No te - New Reference Range in effect 20 Performed By: #### U OXYS, DRUGU #### [address] [address] Urea nitrogen [Mass/Vol] 6.0 mg/dL Low 8.0-22.0 [facility] ([place] Comment on above: Order Comment: Conta minated - nurse draw - notified Rocio Rialto 07/10/2023 06:20:49 EDT Performed By: #### U OXYS, DRUGU #### [address] [address] MGon 07-10-2023 Magnesium [Mass/Vol] 1.8 mg/dL Normal 1.6-2.4 [facility] ([place] Comment on above: Performed By: #### U OXYS, DRUGU #### [address] [address] PHOSon 07-10-2023 Phosphate [Mass/Vol] 3.2 mg/dL Normal 2.4-5.1 [facility] ([place]) Comment on above: Result Comment: No te - New Reference Range in effect 20 Performed By: #### U OXYS, DRUGU #### [address] [address] .Auto Diffon 07-09-2023 Basophil, Absolute 0.1 10 3/mcL Normal 0.0-0.3 [facility] ([place]) Comment on above: Performed By: #### C BC, ADIFF, PRO, BMP, ANEU, GFR #### [address] [address] Basophils/100 WBC (Bld) 1.2 % Normal 0.0-2.5 A [facility] ([place]) Comment on above: Performed By: #### C BC, ADIFF, PRO, BMP, ANEU, GFR #### [address] [address] Eosinophil, Absolute 0.3 10 3/mcL Normal 0.0-0.7 [facility] ([place] Comment on above: Performed By: #### C BC, ADIFF, PRO, BMP, ANEU, GFR #### [address] [address] Eosinophils/100 WBC (Bld) 4.0 % Normal 0.0-6.0 [facility] ([place] Comment on above: Performed By: #### C BC, ADIFF, PRO, BMP, ANEU, GFR #### [address] [address] Lymphocyte, Absolute 2.5 10 3/mcL Normal 0.9-4.3 [facility] ([place] Comment on above: Performed By: #### C BC, ADIFF, PRO, BMP, ANEU, GFR #### [address] [address] Lymphocytes/100 WBC (Bld) 29.3 % Normal 20.0-40.0 [facility] ([place] Comment on above: Performed By: #### C BC, ADIFF, PRO, BMP, ANEU, GFR #### [address] [address] Monocyte, Absolute 0.7 10 3/mcL Normal 0.1-1.4 [facility] ([place]) Comment on above: Performed By: #### C BC, ADIFF, PRO, BMP, ANEU, GFR #### [address] [address] Monocytes/100 WBC (Bld) 7.9 % Normal 2.0-13.0 A [facility] ([place] Comment on above: Performed By: #### C BC, ADIFF, PRO, BMP, ANEU, GFR #### [address] [address] Neutrophils/100 WBC (Bld) 57.6 % Normal 50.0-75.0 [facility] ([place] Comment on above: Performed By: #### C BC, ADIFF, PRO, BMP, ANEU, GFR #### [address] [address] .GFRon 07-09-2023 GFR >60 Normal [facility] ([place] Comment on above: Result Comment: GFR Population [...] BC, ADIFF, PRO, BMP, ANEU, GFR #### [address] [address] GFR Non- >60 Normal [facility] ([place] Comment on above: Result Comment: GFR Population [...] BC, ADIFF, PRO, BMP, ANEU, GFR #### [address] [address] .MDWon 07-09-2023 Monocyte Distribution Width 15.99 Normal 0.00-20.00 [facility] ([place] Comment on above: Result Comment: For ED adult patients suspected of sepsis, MDW<=20.0 does not rule out sepsis or risk of sepsis Performed By: #### C BC, ADIFF, PRO, BMP, ANEU, GFR #### [address] [address] .NEUABSon 07-09-2023 Neutrophil, Absolute 4.9 10 3/mcL Normal 2.3-8.1 [facility] ([place] Comment on above: Performed By: #### C BC, ADIFF, PRO, BMP, ANEU, GFR #### [place] [id number] ABO/Rh (Gel)on 07-09-2023 ABO/Rh Interp Positive Invalid Interpretation Code [facility] ([place] Comment on above: Performed By: #### C BC, ADIFF, PRO, BMP, ANEU, GFR #### [place] [id number] ABS (Gel)on 07-09-2023 ABSC Interp (Gel) Negative Normal [facility] ([place] Comment on above: Performed By: #### C BC, ADIFF, PRO, BMP, ANEU, GFR #### [place] [address] CBCon 07-09-2023 Erythrocyte distribution width (RBC) [Ratio] 16.1 % High 11.5-15.5 [facility] ([place] Comment on above: Performed By: #### C BC, ADIFF, PRO, BMP, ANEU, GFR #### [place] [address] Hematocrit (Bld) [Volume fraction] 36.4 % Normal 34.0-46.0 [facility] ([place] Comment on above: Performed By: #### C BC, ADIFF, PRO, BMP, ANEU, GFR #### [place] [address] Hgb 12.0 G/dL Normal 12.0-16.0 [facility] ([place] Comment on above: Performed By: #### C BC, ADIFF, PRO, BMP, ANEU, GFR #### [place] [address] MCH (RBC) [Entitic mass] 29.8 pg Normal 27.0-33.0 [facility] ([place] Comment on above: Performed By: #### C BC, ADIFF, PRO, BMP, ANEU, GFR #### [place] [address] MCHC 33.0 G/dL Normal 32.0-36.0 [facility] ([place] Comment on above: Performed By: #### C BC, ADIFF, PRO, BMP, ANEU, GFR #### [place] [address] MCV (RBC) [Entitic vol] 90.3 fL Normal 80.0-99.0 A [facility] ([place] Comment on above: Performed By: #### C BC, ADIFF, PRO, BMP, ANEU, GFR #### [place] [address] Platelet 344 10 3/mcL Normal 150-450 [facility] ([place] Comment on above: Performed By: #### C BC, ADIFF, PRO, BMP, ANEU, GFR #### [place] [address] Platelet mean volume (Bld) [Entitic vol] 6.9 fL Normal 6.6-10.5 [facility] ([place] Comment on above: Performed By: #### C BC, ADIFF, PRO, BMP, ANEU, GFR #### [place] [address] RBC 4.03 10 6/mcL Low 4.10-5.30 [facility] ([place] Comment on above: Performed By: #### C BC, ADIFF, PRO, BMP, ANEU, GFR #### [address] [address] WBC 8.5 10 3/mcL Normal 4.5-10.8 [facility] ([place] Comment on above: Performed By: #### C BC, ADIFF, PRO, BMP, ANEU, GFR #### [address] [address] CMPon 07-09-2023 Albumin Level 3.6 G/dL Normal 3.2-4.8 [facility] ([place] Comment on above: Performed By: #### C BC, ADIFF, PRO, BMP, ANEU, GFR #### [place] [id number] Albumin/Globulin [Mass ratio] 1.3 {ratio} Normal 0.9-1.6 [facility] ([place] Comment on above: Performed By: #### C BC, ADIFF, PRO, BMP, ANEU, GFR #### [place] [address] ALP [Catalytic activity/Vol] 87 U/L Normal 38-126 [facility] ([place] Comment on above: Performed By: #### C BC, ADIFF, PRO, BMP, ANEU, GFR #### [place] [address] ALT/SGPT <8 Low 10-49 [facility] ([place] Comment on above: Performed By: #### C BC, ADIFF, PRO, BMP, ANEU, GFR #### [place] [id number] AST [Catalytic activity/Vol] 12 U/L Normal 8-34 [facility] ([place] Comment on above: Performed By: #### C BC, ADIFF, PRO, BMP, ANEU, GFR #### [place] [address] Bili Total 0.30 mg/dL Normal 0.20-1.20 [facility] ([place] Comment on above: Result Comment: Use of this assay is not recommended for patients undergoing treatment with eltrombopag due to the potential for falsely elevated results. Performed By: #### C BC, ADIFF, PRO, BMP, ANEU, GFR #### [place] [id number] BUN/Creatinine Ratio 9.3 ratio Low 10.0-22.0 [facility] ([place]) Comment on above: Performed By: #### C BC, ADIFF, PRO, BMP, ANEU, GFR #### [place] [id number] Calcium [Mass/Vol] 8.9 mg/dL Normal 8.7-10.4 [facility] ([place] Comment on above: Performed By: #### C BC, ADIFF, PRO, BMP, ANEU, GFR #### [place] [id number] Chloride [Moles/Vol] 108 mmol/L Normal 98-110 [facility] ([place] Comment on above: Performed By: #### C BC, ADIFF, PRO, BMP, ANEU, GFR #### [place] [id number] CO2 [Moles/Vol] 23 mmol/L Normal 22-32 [facility] ([place] Comment on above: Performed By: #### C BC, ADIFF, PRO, BMP, ANEU, GFR #### [place] [address] Creatinine [Mass/Vol] 0.86 mg/dL Normal 0.50-1.20 [facility] ([place] Comment on above: Performed By: #### C BC, ADIFF, PRO, BMP, ANEU, GFR #### [place] [id number] Electrolyte Balance 8.0 mEq/L Normal 4.0-15.0 [facility] ([place] Comment on above: Performed By: #### C BC, ADIFF, PRO, BMP, ANEU, GFR #### [place] [id number] Globulin 2.8 G/dL Normal 1.5-3.8 [facility] ([place] Comment on above: Performed By: #### C BC, ADIFF, PRO, BMP, ANEU, GFR #### [address] [address] Glucose [Mass/Vol] 89 mg/dL Normal 70-110 [facility] ([place] Comment on above: Performed By: #### C BC, ADIFF, PRO, BMP, ANEU, GFR #### [address] [address] Potassium [Moles/Vol] 3.3 mmol/L Low 3.5-5.0 [facility] ([place] Comment on above: Performed By: #### C BC, ADIFF, PRO, BMP, ANEU, GFR #### [place] [id number] Sodium [Moles/Vol] 139 mmol/L Normal 136-145 [facility] ([place] Comment on above: Performed By: #### C BC, ADIFF, PRO, BMP, ANEU, GFR #### [place] [address] Total Protein 6.4 G/dL Normal 5.7-8.2 [facility] ([place] Comment on above: Result Comment: No te - New Reference Range in effect 20 Performed By: #### C BC, ADIFF, PRO, BMP, ANEU, GFR #### [place] [address] Urea nitrogen [Mass/Vol] 8.0 mg/dL Normal 8.0-22.0 [facility] ([place] Comment on above: Performed By: #### C BC, ADIFF, PRO, BMP, ANEU, GFR #### [place] [address] LABORATORYOrdered By: Emi Dalton on 07-09-2023 Appearance [...] an d Antimicrobial susceptibilityOrdered By: [facility] on 07-09-2023 Bacteria identified Cx Nom (Bld) Culture has been received in lab and is no growth to date. Culture will be held for four weeks. [facility] MGon 07-09-2023 Magnesium [Mass/Vol] 2.0 mg/dL Normal 1.6-2.4 [facility] ([place]) Comment on above: Performed By: #### C BC, ADIFF, PRO, BMP, ANEU, GFR #### [address] [address] No Panel Informationon 07-09 Culture Urine 10,000 - 50,000 cfu/ ml Multiple bacterial morphotypes present. Probable Contamination. Suggest recollection if clinically indicated. [facility] Work Phone: Culture Urine 10,000 - 50,000 cfu/ ml Multiple bacterial morphotypes present. Probable Contamination. Suggest recollection if clinically indicated. [facility] Work Phone: PHOSon 07-09-2023 Phosphate [Mass/Vol] 3.4 mg/dL Normal 2.4-5.1 [facility] ([place] Comment on above: Result Comment: No te - New Reference Range in effect 20 Performed By: #### C BC, ADIFF, PRO, BMP, ANEU, GFR #### [place] [address] UAon 07-09-2023 Color (U) Red Abnormal [facility] ([place] Comment on above: Performed By: #### C BC, ADIFF, PRO, BMP, ANEU, GFR #### [place] [address] Glucose (U) [Mass/Vol] Negative Normal Negative [facility] ([place] Comment on above: Performed By: #### C BC, ADIFF, PRO, BMP, ANEU, GFR #### [place] [address] Ketones Ql (U) Negative Normal Neg-Trace [facility] ([place] Comment on above: Performed By: #### C BC, ADIFF, PRO, BMP, ANEU, GFR #### [place] [id number] UA Appear Turbid Abnormal Clear [facility] ([place] Comment on above: Performed By: #### C BC, ADIFF, PRO, BMP, ANEU, GFR #### [place] [id number] UA Blood Large Abnormal Neg-Trace [facility] ([place] Comment on above: Performed By: #### C BC, ADIFF, PRO, BMP, ANEU, GFR #### [address] [address] UA Leuk Est Large Abnormal Negative [facility] ([place] Comment on above: Performed By: #### C BC, ADIFF, PRO, BMP, ANEU, GFR #### [address] [address] UA Nitrite Negative Normal Negative [facility] ([place] Comment on above: Performed By: #### C BC, ADIFF, PRO, BMP, ANEU, GFR #### [address] [address] UA pH 6.5 Normal 5.0 - 8.0 [facility] ([place] Comment on above: Performed By: #### C BC, ADIFF, PRO, BMP, ANEU, GFR #### [address] [address] UA Protein >=1000 Abnormal Negative [facility] ([place] Comment on above: Performed By: #### C BC, ADIFF, PRO, BMP, ANEU, GFR #### [address] [address] UA Spec Grav 1.025 Normal 1.006-1.029 [facility] ([place] Comment on above: Performed By: #### C BC, ADIFF, PRO, BMP, ANEU, GFR #### [address] [address] UA Specimen Type Catheter Normal [facility] ([place] Comment on above: Performed By: #### C BC, ADIFF, PRO, BMP, ANEU, GFR #### [address] [address] UA Urobilinogen 1.0 E.U./dL Normal 0.2-1.0 [facility] ([place] Comment on above: Performed By: #### C BC, ADIFF, PRO, BMP, ANEU, GFR #### [address] [address] Urobilinogen (U) [Mass/Vol] Negative Normal Neg-Trace [facility] ([place] Comment on above: Performed By: #### C BC, ADIFF, PRO, BMP, ANEU, GFR #### [address] [address] Color (U) Yellow Normal [facility] ([place] Comment on above: Performed By: #### C BC, ADIFF, PRO, BMP, ANEU, GFR #### [address] [address] Glucose (U) [Mass/Vol] Negative Normal Negative [facility] ([place] Comment on above: Performed By: #### C BC, ADIFF, PRO, BMP, ANEU, GFR #### [address] [address] Ketones Ql (U) Trace Normal Neg-Trace [facility] [place] Comment on above: Performed By: #### C BC, ADIFF, PRO, BMP, ANEU, GFR #### [place] [address] UA Appear Cloudy Abnormal Clear [facility] ([place] Comment on above: Performed By: #### C BC, ADIFF, PRO, BMP, ANEU, GFR #### [address] [address] UA Blood Moderate Abnormal Neg-Trace [facility] ([place] Comment on above: Performed By: #### C BC, ADIFF, PRO, BMP, ANEU, GFR #### [address] [address] UA Leuk Est Moderate Abnormal Negative [facility] ([place] Comment on above: Performed By: #### C BC, ADIFF, PRO, BMP, ANEU, GFR #### [address] [address] UA Nitrite Negative Normal Negative [facility] ([place] Comment on above: Performed By: #### C BC, ADIFF, PRO, BMP, ANEU, GFR #### [address] [address] UA pH 6.5 Normal 5.0 - 8.0 [facility] ([place] Comment on above: Performed By: #### C BC, ADIFF, PRO, BMP, ANEU, GFR #### [address] [address] UA Protein 100 mg/dL Abnormal Negative [facility] ([place] Comment on above: Performed By: #### C BC, ADIFF, PRO, BMP, ANEU, GFR #### [address] [address] UA Spec Grav 1.020 Normal 1.006-1.029 [facility] ([place] Comment on above: Performed By: #### C BC, ADIFF, PRO, BMP, ANEU, GFR #### [place] [address] UA Specimen Type Catheter Normal [facility] ([place] Comment on above: Performed By: #### C BC, ADIFF, PRO, BMP, ANEU, GFR #### [address] [address] UA Urobilinogen 0.2 E.U./dL Normal 0.2-1.0 [facility] ([place] Comment on above: Performed By: #### C BC, ADIFF, PRO, BMP, ANEU, GFR #### [address] [address] Urobilinogen (U) [Mass/Vol] Negative Normal Neg-Trace [facility] ([place] Comment on above: Performed By: #### C BC, ADIFF, PRO, BMP, ANEU, GFR #### [address] [address] UAMICon 07-09-2023 UA Bacteria 2+ /hpf Abnormal Negative [facility] ([place] Comment on above: Performed By: #### C BC, ADIFF, PRO, BMP, ANEU, GFR #### [address] [address] UA Mucous 2+ /hpf Normal [facility] ([place] Comment on above: Performed By: #### C BC, ADIFF, PRO, BMP, ANEU, GFR #### [address] [address] UA RBC LOADED Abnormal 0-2 [facility] ([place] Comment on above: Performed By: #### C BC, ADIFF, PRO, BMP, ANEU, GFR #### [address] [address] UA Squam Epithelial 5-10 Normal 0-20 [facility] ([place] Comment on above: Performed By: #### C BC, ADIFF, PRO, BMP, ANEU, GFR #### [address] [address] UA WBC 10-20 Abnormal 0-5 [facility] ([place] Comment on above: Performed By: #### C BC, ADIFF, PRO, BMP, ANEU, GFR #### [place] [address] UA Crenated RBCs 3-5 Abnormal [facility] ([place] Comment on above: Performed By: #### C BC, ADIFF, PRO, BMP, ANEU, GFR #### [place] [address] UA Mucous 1+ /hpf Normal [facility] ([place] Comment on above: Performed By: #### C BC, ADIFF, PRO, BMP, ANEU, GFR #### [place] [address] UA RBC 5-10 Abnormal 0-2 [facility] ([place] Comment on above: Performed By: #### C BC, ADIFF, PRO, BMP, ANEU, GFR #### [place] [address] UA Squam Epithelial 5-10 Normal 0-20 [facility] ([place] Comment on above: Performed By: #### C BC, ADIFF, PRO, BMP, ANEU, GFR #### [place] [address] UA WBC 25-50 Abnormal 0-5 [facility] ([place] Comment on above: Performed By: #### C BC, ADIFF, PRO, BMP, ANEU, GFR #### [place] [address] LABORATORYOrdered By: SYSTEM SYSTEM on 05-07-2023 Albumin [...] 32 mEq/L AH ADM SS Creatinine [Mass/Vol] 0.81 mg/dL Invalid [...] U/L AH ADM SS AST [Catalytic activity/Vol] 25 U/L [...] 10^3/mcL AH Workflow SS Eosinophils/100 WBC (Bld) 8.8 % [...] % AH Workflow SS Hemoglobin (Bld) [Mass/Vol] 12.8 G/dL [...] (05/02/23 6:22 AM) Invalid Interpretation Code Negative Auto Urine SS UA pH 7.0 (05/02/23 6:22 AM) Invalid Interpretation Code 5.0 - 8.0 AH Auto Urine SS UA Protein 30 mg/dL Invalid Interpretation Code Negativemg/ dL AH Auto Urine SS UA RBC Negative Invalid Interpretation Code 0-2/HPF Auto Urine SS UA Spec Grav 1.015 [...] Culture Urine No growth at 48 hours. [facility] Work Phone: Culture Urine No growth at 48 hours. [facility] Work Phone: LABORATORYOrdered By: SYSTEM SYSTEM [...] or 2. Interpretative criteria are not available. [facility] Work Phone: Cefotaxime ANA LILIA [Susc]on 04-04 Enterococcus faecalis Enterococcus faecalis [facility] Work Phone: Klebsiella oxytoca Raoultella ornithinolytica Klebsiella oxytoca Raoultella ornithinolytica [facility] Work Phone: Myroides odoratimimus [facility] Work Phone: Vagococcus fluvialis Vagococcus fluvialis [facility] Work Phone: LABORATORYOrdered By: Jesus Pedro [...] Blood Culture: No Growth at 5 days. [facility] Work Phone: Culture Urine >100,000 cfu/ml Mult iple bacterial morphotypes present. Probable Contamination. Suggest recollection if clinically indicated. [facility] Work Phone: LABORATORYOrdered By: SYSTEM SYSTEM [...] 10.5 fL Workflow SS Platelets (Bld) [#/Vol] 400 103/mcL [...] - 10.8 10^3/mcL Workflow SS LABORATORYOrdered By: Daja Muir on [...] Infectious Disease /Intensivists. Please consult Physicians accordingly. [facility] Work Phone: LABORATORYOrdered By: Juan Diego [...] test) Ql (U) Negative (02/23/23 12:06 PM) [facility] Work Phone: No Panel Informationon 02-23 Culture Urine No growth at 48 hours. [facility] Work Phone: Microscopic examination of blood, culture Blood Culture: No Growth at 5 days. [facility] Work Phone: cefTRIAXone ANA LILIA [[facility]]on Escherichia coli ESBL Escherichia coli ESBL [facility] Work Phone: LABORATORYOrdered By: SYSTEM SYSTEM [...] fL AH Workflow SS Platelets (Bld) [#/Vol] 319 103/mcL Invalid Interpretation Code 150 - 450 10^3/mcL AH Workflow SS Potassium [Moles/Vol] 4.2 mmol/L Invalid Interpretation Code 3.5 - 5.0 mEq/L AH ADM SS Comment on above: Result Comment: Spec imen slightly hemolyzed. Protein [Mass/Vol] 4.8 G/dL Invalid Interpretation Code 5.7 - 8.2 G/dL AH ADM SS RBC (Bld) [#/Vol] 3.54 106/mcL [...] 10^3/mcL AH Workflow SS Lymphocytes/100 WBC (Bld) 29.7 % [...] - 10.8 10^3/mcL Workflow SS LABORATORYOrdered By: Gabriela Gabriel on [...] an d Antimicrobial susceptibilityOrdered By: [facility] on 01-01-2023 Bacteria identified Cx Nom (Bld) Culture has been received in lab and is no growth to date. Culture will be held for four weeks. [facility] No Panel Informationon 01-01 Culture Urine >100,000 cfu/ml Multiple bacterial morphotypes present. Probable Contamination. Suggest recollection if clinically indicated. [facility] Work Phone: Culture Urine >100,000 cfu/ml Multiple bacterial morphotypes present. Probable Contamination. Suggest recollection if clinically indicated. [facility] Work Phone: LABORATORYOrdered By: SYSTEM SYSTEM [...] [Relative time] 1.0 {INR} Invalid Interpretation Code Auto Coag SS PT Coag (PPP) [Time] [...] 5.30 10^6/mcL AH Workflow SS Sodium [Moles/Vol] 141 mmol/L Invalid [...] AH Workflow SS MCV (RBC) [Entitic vol] 102.6 [...] Culture Urine No growth at 48 hours. [facility] Work Phone: LABORATORYOrdered By: Alicia Gardiner [...] an d Antimicrobial susceptibilityOrdered By: [facility] on 09-30-2022 Bacteria identified Cx Nom (Bld) Culture has been received in lab and is no growth to date. Culture will be held for four weeks. [facility] No Panel Informationon 09-30 Culture Urine >100,000 cfu/ml Mult iple bacterial morphotypes present. Probable Contamination. Suggest recollection if clinically indicated. [facility] Work Phone: LABORATORYOrdered By: SYSTEM SYSTEM [...] 10^3/mcL AH Workflow SS Eosinophils/100 WBC (Bld) 11.8 % [...] or 2. Interpretative criteria are not available. [facility] Work Phone: Amikacin ANA LILIA [Susc]on 2021 Corynebacterium amycolatum Corynebacterium amycolatum [facility] Work Phone: Escherichia coli ESBL Escherichia coli ESBL [facility] Work Phone: LABORATORYOrdered By: Nilda Flores [...] Calculate Invalid Interpretation Code 0.1 - 10.0 AH Chemistry S Comment on above: Result Comment: [...] Interpretation Code 1.12 - 1.32 mmol/L [facility] SS Chloride [Moles/Vol] 112 mmol/L Invalid Interpretation Code 98 - 110 mEq/L [facility] SS CO2 [Moles/Vol] 18 mmol/L Invalid Interpretation Code 22 - 32 mEq/L [facility] SS Creatinine [Mass/Vol] 0.88 mg/dL Invalid Interpretation Code 0.50 - 1.20 mg/dL CC P SS Electrolyte Balance 8.0 mEq/L Invalid Interpretation Code 4.0 - 15.0 mEq/L [facility] SS Glucose [Mass/Vol] 97 mg/dL Invalid Interpretation [...] Probable Contamination. Suggest recollection if clinically indicated. [facility] Work Phone: LABORATORYOrdered By: SYSTEM SYSTEM [...] 13.0 % AH Workflow SS Neutrophil, Absolute 4.7 103/mcL Invalid [...] - 8.2 G/dL AH ADM SS RBC 3.68 106/mcL Invalid Interpretation [...] cfu/ml. No Significant growth. Sensitivity not indicated. [facility] Work Phone: No Panel Informationon 04-14 Culture Urine >100,000 cfu/ml Escherichia coli ESBL Extended-Spectrum B-Lactamase isolate may be clinically resistant to therapy with Penicillins, Cephalosporinsor Aztreonam despite apparent in vitro susceptibility to some of these agents. Use of Imipenem is currently restricted to Infectious Disease /Intensivists. Please consult Physicians accordingly. >100,000 cfu/ml Enterococcus faecalis [facility] Work Phone: Enterococcus faecalis Enterococcus faecalis [facility] Work Phone: Escherichia coli ESBL Escherichia coli ESBL [facility] Work Phone: LABORATORYOrdered By: Oc De Leon on 12-21-2021 Beta HCG ( test) Ql (U) Negative (12/21/21 11:24 AM) [facility] Work Phone: Clinical Event Note-Hospital ist [...] no voice mail Electronic Signatures: Akin Lewis ([employer]IEST-ELECTRIC MOTOR TESTER) (Signed 20-Jul-2021 02:23) Authored: Clinical Event Note Last Updated: 20-Jul-2021 02:23 by Akin Lewis ([employer]IEST-ELECTRIC MOTOR TESTER) Normal [facility] BASIC METABOLIC PANELon 07-04 Anion gap [Moles/Vol] 13 mmol/L Normal 10 - 20 [facility] Comment on above: Performed By: #### B MP #### [facility] [address] [place] [address] Calcium [Mass/Vol] 9.3 mg/dL Normal 8.6 - 10.6 [facility] Comment on above: Performed By: #### B MP #### [facility] [address] [place] [address] Chloride [Moles/Vol] 107 mmol/L Normal 98 - 107 [facility] Comment on above: Performed By: #### B MP #### [facility] [address] [place] [address] Creatinine [Mass/Vol] 0.76 mg/dL Normal 0.50 - 1.05 [facility] Comment on above: Performed By: #### B MP #### [facility] [address] [place] [address] GFR- AM. >60 Normal >60 [facility] Comment on above: Result Comment: CALC ULATIONS OF ESTIMATED GFR ARE PERFORMED USING THE MDRD STUDY EQUATION FOR THE IDMS-TRACEABLE CREATININE METHODS. CLIN CHEM 2007;53:766-72 Performed By: #### B MP #### [facility] [address] [place] [address] GFR-NON AM. >60 Normal >60 [facility] Comment on above: Performed By: #### B MP #### [facility] [address] [place] [address] Glucose [Mass/Vol] 77 mg/dL Normal 74 - 99 [facility] Comment on above: Performed By: #### B MP #### [facility] [address] [place] [address] HCO3 (Bld) [Moles/Vol] 26 mmol/L Normal 21 - 32 [facility] Comment on above: Performed By: #### B MP #### [facility] [address] [place] [address] Potassium [Moles/Vol] 4.2 mmol/L Normal 3.5 - 5.3 [facility] Comment on above: Performed By: #### B MP #### [facility] [address] [place] [address] Sodium [Moles/Vol] 142 mmol/L Normal 136 - 145 [facility] Comment on above: Performed By: #### B MP #### [facility] [address] [place] [address] Urea nitrogen [Mass/Vol] 8 mg/dL Normal 6 - 23 [facility] Comment on above: Performed By: #### B MP #### [facility] [address] [place] [address] CBCon 07-14-2021 Erythrocyte distribution width (RBC) [Ratio] 13.8 % Normal 11.5 - 14.5 [facility] Comment on above: Performed By: #### C BC #### [facility] [address] [place] [address] Hematocrit (Bld) [Volume fraction] 35.6 % Low 36.0 - 46.0 [facility] Comment on above: Performed By: #### C BC #### [facility] [address] [place] [address] Hemoglobin (Bld) [Mass/Vol] 12.3 g/dL Normal 12.0 - 16.0 [facility] Comment on above: Performed By: #### C BC #### [facility] [address] [place] [address] MCHC (RBC) [Mass/Vol] 34.6 g/dL Normal 32.0 - 36.0 [facility] Comment on above: Performed By: #### C BC #### [facility] [address] [place] [address] MCV (RBC) [Entitic vol] 108 fL High 80 - 100 [facility] Comment on above: Performed By: #### C BC #### [facility] [address] [place] [address] NUCLEATED RBC 0.0 /100 WBC Normal 0.0-0.0 [facility] Comment on above: Performed By: #### C BC #### [facility] [address] [place] [address] Platelets (Bld) [#/Vol] 462 10*3/uL High 150 - 450 [facility] Comment on above: Performed By: #### C BC #### [facility] [address] [place] [address] RBC 3.29 x10E12/L Low 4.00 - 5.20 [facility] Comment on above: Performed By: #### C BC #### [facility] [address] [place] [address] WBC (Bld) [#/Vol] 6.6 10*3/uL Normal 4.4 - 11.3 [facility] Comment on above: Performed By: #### C BC #### [facility] [address] [place] [address] Order Reconciliationon 07-14 Order Reconciliation Page 1 [...] patch TransDermal Every 24 HoursNotes from Pharmacy: [facility] 12-Jul-2021 20:53 Nicotine 14 mg/ [...] be shared with your follow-up providers (doctor, administrative office manager, physical therapist, etc.). Guidelines for a Healthy [...] be shared with your follow-up providers (doctor, administrative office manager, physical therapist, etc.). Guidelines for a Healthy Lifestyle LORazepam 1 mg oral tablet 1 tab(s) orally 3 times a day, As Needed sulfamethoxazole-trimeth oprim 800 mg-160 mg oral tablet 1 tab(s) orally every 12 hours Normal [facility] BASIC METABOLIC PANELon 07-04-2020 Anion gap [Moles/Vol] 9 mmol/L Low 10 - 20 [facility] Comment on above: Performed By: #### B MP #### [facility] [address] [place] [address] Calcium [Mass/Vol] 8.7 mg/dL Normal 8.6 - 10.6 [facility] Comment on above: Performed By: #### B MP #### [facility] [address] [place] [address] Chloride [Moles/Vol] 105 mmol/L Normal 98 - 107 [facility] Comment on above: Performed By: #### B MP #### [facility] [address] [place] [address] Creatinine [Mass/Vol] 0.67 mg/dL Normal 0.50 - 1.05 [facility] Comment on above: Performed By: #### B MP #### [facility] [address] [place] [address] GFR- AM. >60 Normal >60 [facility] Comment on above: Result Comment: CALC ULATIONS OF ESTIMATED GFR ARE PERFORMED USING THE MDRD STUDY EQUATION FOR THE IDMS-TRACEABLE CREATININE METHODS. CLIN CHEM 2007;53:766-72 Performed By: #### B MP #### [facility] [address] [place] [address] GFR-NON AM. >60 Normal >60 [facility] Comment on above: Performed By: #### B MP #### [facility] [address] [place] [address] Glucose [Mass/Vol] 89 mg/dL Normal 74 - 99 [facility] Comment on above: Performed By: #### B MP #### [facility] [address] [place] [address] HCO3 (Bld) [Moles/Vol] 28 mmol/L Normal 21 - 32 [facility] Comment on above: Performed By: #### B MP #### [facility] [address] [place] [address] Potassium [Moles/Vol] 4.2 mmol/L Normal 3.5 - 5.3 [facility] Comment on above: Performed By: #### B MP #### [facility] [address] [place] [address] Sodium [Moles/Vol] 138 mmol/L Normal 136 - 145 [facility] Comment on above: Performed By: #### B MP #### [facility] [address] [place] [address] Urea nitrogen [Mass/Vol] 7 mg/dL Normal 6 - 23 [facility] Comment on above: Performed By: #### B MP #### [facility] [address] [place] [address] CBCon 07-13-2021 Erythrocyte distribution width (RBC) [Ratio] 13.7 % Normal 11.5 - 14.5 [facility] Comment on above: Performed By: #### C BC #### [facility] [address] [place] [address] Hematocrit (Bld) [Volume fraction] 35.5 % Low 36.0 - 46.0 [facility] Comment on above: Performed By: #### C BC #### [facility] [address] [place] [address] Hemoglobin (Bld) [Mass/Vol] 11.7 g/dL Low 12.0 - 16.0 [facility] Comment on above: Performed By: #### C BC #### [facility] [address] [place] [address] MCHC (RBC) [Mass/Vol] 33.0 g/dL Normal 32.0 - 36.0 [facility] Comment on above: Performed By: #### C BC #### [facility] [address] [place] [address] MCV (RBC) [Entitic vol] 109 fL High 80 - 100 [facility]3] Comment on above: Performed By: #### C BC #### [facility] [address] [place] [address] NUCLEATED RBC 0.0 /100 WBC Normal 0.0-0.0 [facility] Comment on above: Performed By: #### C BC #### [facility] [address] [place] [address] Platelets (Bld) [#/Vol] 425 10*3/uL Normal 150 - 450 [facility] Comment on above: Performed By: #### C BC #### [facility] [address] [place] [address] RBC 3.26 x10E12/L Low 4.00 - 5.20 [facility] Comment on above: Performed By: #### C BC #### [facility] [address] [place] [address] WBC (Bld) [#/Vol] 5.9 10*3/uL Normal 4.4 - 11.3 [facility] Comment on above: Performed By: #### C BC #### [facility] [address] [place] [address] Daily Progress Note-Medicine on 07-13-2021 Daily Progress Note-Medicine Service: Medicine Subjective Data: LALY NAVAS is a 30 year old Female who is Hospital Day # 3. Patient states she is feeling better today. Still having some pain around the left nephrostomy tube. Objective Data: Objective Information: T PRBPSpO2 [id number]/72359% Date/Time07/13 16: 16: 16: 16: 16:02 Range(36.8C - 37.3C ) (68 - 90 ) (18 - 18 ) (109 - 120 )/ (75 - 93 ) (98% - 100% ) Highest temp of 37.3 C was recorded at 07/13 8:26 Pain reported at 07/13 6:36: 7 = Severe ---- Intake and Output ----- Mn/Dy/Year TimeIntakeOutputNet Jul 13, 2021 2:00 [id number] Jul 13, 2021 6:00 [id number] Jul 12, 2021 10:00 [id number] The Intake and Output Totals for the last 24 hours are: IntakeOutputNet [id number] Physical Exam by System: Constitutional: Well developed, [...] Updated: 13-Jul-2021 19:06 by Shira Teran) Normal [facility] Discharge [id number] Discharge Profile2 Discharge Orders: Anticipated Discharge Date: Anticipated Discharge [id number] Hospital Providers: Provider RoleProvider Name AttendingShira Teran DNAR: DNAR Status: none Activity: activity as tolerated. Diet: Dietresume normal diet Provider FINAL REVIEW of Orders: Final Review: Final Review of Medication Reconciliation and Orders Completedby Physician Reviewing ProviderShira Teran MD at 14-Jul-2021 14:12:33 Appointments: Follow-Up Appointment 01: Physician/Dept/ServiceDr Polo Plummer Reason for ReferralFollow up Scheduled Date/[id number] 11:10 [facility], [address] [place] [address], [address], [place] [address] Phone [phone] Electronic Signatures: Shira Teran) (Signed 14-Jul-2021 14:12) Authored: Discharge Orders, Provider FINAL REVIEW of Orders Delmar Ramos ([employer]ATH[employer] PRIEST-ELECTRIC MOTOR TESTER) (Signed 13-Jul-2021 10:30) Authored: Discharge Orders, Appointments, Gold Form - Network Project Manager Summary Last Updated: 14-Jul-2021 14:12 by Shira Teran) Normal [facility] LACTATEon 07-13-2021 Lactate [Moles/Vol] 1.2 mmol/L Normal 0.4 - 2.0 [facility] Comment on above: Result Comment: Roseline puncture immediately after or during the administration of Metamizole may lead to falsely low results. Testing should be performed immediately prior to Metamizole dosing. Performed By: #### L ACT #### [facility] [address] [place] [id number] Admission Risk Screen - Adul ton 07-12-2021 Admission Risk Screen - Adult Allergies: Allergies: No Known Allergies: Patient Verification: New W ID Band Applied in my Departmentno Type of ID Patient is WearingW wristband, but not applied here Patient Transferred from Other Facility ([facility], [facility],etc)no Patient Identity Verified Bypatient [...] AlertFor Ebola-like Symptoms: Isolate Patient and Notify Provider/Ship'S Cook For Contact: Notify Provider/Ship'S Cook Advance Directive: Advance Directive/DNRno (1) Advance Directive [...] Learning Preferencesverbal instruction Cultural Considerationsnone Developmental Considerationsnone Amish Considerationsnone Learning Assessment (Other Learner): Other learner availableno Depression Screen: During the past month, have you often been bothered by feeling down, depressed or hopelessyes During the past month, have you often had little interest or pleasure in doing thingsyes Have you had any thoughts of harming anyone elseno (2) [place] Suicide: Risk Screen Not Applicable/Able to Answerable to be screened In the Past Month: Have you wished you were or could go to sleep and not wake upno(2) In the Past Month: Have you had any actual thoughts of killing yourself no(2) Lifetime: Have you ever done, started to do, or prepared to do anything to end your lifeno [place] Suicide Risknegative Adult Nutrition Screen: Have you [...] (nonverbal)verbalization Chroni (more content not included)... Normal [facility] BASIC METABOLIC PANELon 09- Anion gap [Moles/Vol] 12 mmol/L Normal - [facility] Comment on above: Performed By: #### B MP #### [facility] [address] [place] [address] Calcium [Mass/Vol] 8.9 mg/dL Normal 8.6 - 10.6 [facility] Comment on above: Performed By: #### B MP #### [facility] [address] [place] [address] Chloride [Moles/Vol] 104 mmol/L Normal 98 - 107 [facility] Comment on above: Performed By: #### B MP #### [facility] [address] [place] [address] Creatinine [Mass/Vol] 0.69 mg/dL Normal 0.50 - 1.05 [facility] Comment on above: Performed By: #### B MP #### [facility] [address] [place] [address] GFR- AM. >60 Normal >60 [facility] Comment on above: Result Comment: CALC ULATIONS OF ESTIMATED GFR ARE PERFORMED USING THE MDRD STUDY EQUATION FOR THE IDMS-TRACEABLE CREATININE METHODS. CLIN CHEM 2007;53:766-72 Performed By: #### B MP #### [facility] [address] [place] [address] GFR-NON AM. >60 Normal >60 [facility] Comment on above: Performed By: #### B MP #### [facility] [address] [place] [address] Glucose [Mass/Vol] 85 mg/dL Normal 74 - 99 [facility] Comment on above: Performed By: #### B MP #### [facility] [address] [place] [address] HCO3 (Bld) [Moles/Vol] 28 mmol/L Normal 21 - 32 [facility] Comment on above: Performed By: #### B MP #### [facility] [address] [place] [address] Potassium [Moles/Vol] 4.2 mmol/L Normal 3.5 - 5.3 [facility] Comment on above: Performed By: #### B MP #### [facility] [address] [place] [address] Sodium [Moles/Vol] 140 mmol/L Normal 136 - 145 [facility] Comment on above: Performed By: #### B MP #### [facility] [address] [place] [address] Urea nitrogen [Mass/Vol] 7 mg/dL Normal 6 - 23 [facility] Comment on above: Performed By: #### B MP #### [facility] [address] [place] [address] CBCon 07-12-2021 Erythrocyte distribution width (RBC) [Ratio] 13.9 % Normal 11.5 - 14.5 [facility] Comment on above: Performed By: #### C BC #### [facility] [address] [place] [address] Hematocrit (Bld) [Volume fraction] 33.8 % Low 36.0 - 46.0 [facility] Comment on above: Performed By: #### C BC #### [facility] [address] [place] [address] Hemoglobin (Bld) [Mass/Vol] 11.2 g/dL Low 12.0 - 16.0 [facility] Comment on above: Performed By: #### C BC #### [facility] [address] [place] [address] MCHC (RBC) [Mass/Vol] 33.1 g/dL Normal 32.0 - 36.0 [facility] Comment on above: Performed By: #### C BC #### [facility] [address] [place] [address] MCV (RBC) [Entitic vol] 108 fL High 80 - 100 [facility]3] Comment on above: Performed By: #### C BC #### [facility] [address] [place] [address] NUCLEATED RBC 0.0 /100 WBC Normal 0.0-0.0 [facility] Comment on above: Performed By: #### C BC #### [facility] [address] [place] [address] Platelets (Bld) [#/Vol] 438 10*3/uL Normal 150 - 450 [facility] Comment on above: Performed By: #### C BC #### [facility] [address] [place] [address] RBC 3.13 x10E12/L Low 4.00 - 5.20 [facility] Comment on above: Performed By: #### C BC #### [facility] [address] [place] [address] WBC (Bld) [#/Vol] 8.7 10*3/uL Normal 4.4 - 11.3 [facility] Comment on above: Performed By: #### C BC #### [facility] [address] [place] [address] Discharge Planning [id number] 07-12-2021 Discharge Planning Note2 Discharge Planning: Discharge Barriersnone Planned Dispositionhome Discharge Destinationhome AMPAC < 20no PCP/Next Provider Follow Up Scheduledyes Ronald of Choice Explainedno Anticipated Discharge [id number] Discharge Planning 07/12/2021 @ 1540 Transitional Care Coordination Progress Note: Patient discussed during interdisciplinary rounds. Team members present: Attending and TCC Plan per Medical/Surgical team: UTI, cultures pending. PMH Stg 3 invasive SCCA. PCNT drain in place Status: observation Payor source: [facility] Discharge disposition: Home with SO. Home care with [facility] just ended on 07/11. Pt declines the need for Home Care nurse. Pt independent with PCNT care. Potential Barriers: none ADOD: 07/13 Admission assessment completed at the bedside with the patient. See assessment tab for details. Pt's significant other will transport pt home when medically ready. Pari Abbott RN [phone] Transitional Clerical Supervisor Note: 07/14/2021@ 14:47. Patient is medically ready for discharge. No home care is required. Coleen Villa RN [facility] [phone] 07/14/21 1545-discussed d/c instructions with pt who verbalized understanding prior to d/c. de-accessed right chest mediport pt tolerated well. pt left unit prior to being given printed script for atb therapy. attending notified. Yolanda mckinley, rn plasma center: Discharge Planning Assessment [id number] Discharge Planning Assessment Completed byPari Abbott RNTCC Primary Contact Name and NumberMATT [phone], SO Prior Level of Functioningindependent with ADLs and SO helps with iADLs Independent with PCNT drain and site care Lives Withsignificant other Living Arrangementsmobile home; 3 steps to enter mobile home. Tub shower with seat Stated Reason for AdmissionABD PAIN(1) Arrived Fromemergency department (1) PCPsingh Preferred Pharmacy Name/LocationJennifer Hurd Recent Falls/ Injury/ Need Assist with Ambulationno falls, no AD DME Supplier Name/Numbernone Home Care Agency/Support Servicesnone Diabetic/Supplies Needednone Hemodialysis Schedulenone Resource/Environmental Concernsnone(1) Anticipated Transition [place](1) Services Anticipated at Transitionnone(1) Readmission Within the [...] Profile - Adult v2 12-Jul-2021 00:17 Normal [facility] HCG,URINEon 07-12-2021 Beta HCG ( test) Ql (U) Negative Normal Negative [facility] Comment on above: Performed By: #### U AMI #### [facility] [address] [place] [address] Nutrition Therapy-Assessment on 07-12-2021 Nutrition Therapy-Assessment Assessment Subjective/Objective: Note Type: Assessment Note Authored by: Registered Dietitian Master Ocean Pager Number: [phone] Nutrition Note: The patient is a 30 [...] denies Mobility: normal activity Food Allergies Comment: [facility] Nutritional Supplements: has a multivitamins and a [...] Mouth: negative Nails: negative Estimated Needs: kcals/day: [id number] Predictive Equation Used: kcals/kg; 30-35 gms protein/day: [...] suggestions of meals/foods to try. Discussed utilizing [employer] for resources in her area. Education Provided to: patient Understanding of Diet: good Anticipated Compliance: fair Follow up: refer pt to outpatient nutrition therapy for follow up (likely closer to home) Nutrition Goals: Goals: Nutrition Therapy: consume prescribed supplement, electrolytes within normal limits NUTRITION R (more content not included)... Normal [facility] Order Reconciliationon 07-12 Order Reconciliation Page 1 [...] tab(s) orally 3 times a day, As [id number]-Jul-2021 PM LORazepam Tablet (ATIVAN)DOSE = 1 mg Oral Every 8 Hours, PRN AnxietyLORazepam 1 mg oral tablet continued as the inpatient order LORazepam Percocet 5/325 oral tablet orally every 4-6 hours, As [id number]-Jul-2021 Reviewed and Held Zofran 4 mg oral tablet orally every 4 hours, As [id number]- 2021 PM Reviewed and Held Documentation of [...] 6 Hours, PRN Nausea and/or Vomiting Normal [facility] Patient Profile - Adult v2on 07-12-2021 Patient Profile - Adult v2 Profile: Initial Info: How to be Addressedrachael (1) Spoken Language PreferredEnglish (1) Source of Informationpatient Stated Reason for AdmissionABD PAIN Primary Contact Name and NumberMATT [phone] Wants Family/Rep Notified of Admissionyes, primary contact Notify PCPnotify PCP Informed of Patient Visiting Rightsyes Arrived Fromemergency department Patient Belongingsremains with patient Patient Belongings Remaining with Patientvision aids; cell phone/electronics; purse/wallet; clothing Medications Brought to Hospitalyes Medication Dispositionlocked in unit medication cabinet General Health: Blood Avoidance/Restrictionsno ne(1) Weight in kg48.6 kilogram(s) Weight in ton081.1 pound(s) Weight Methodactual (measured) Scale Typestanding Height [...] Last Updated: 12-Jul-2021 00:30 by Rod Cruz (ORSS) References: 1. Data Referenced From Patient Profile - Procedure-H and P 02-Jul-2021 11:54 2. Data Referenced From 1. Vital Signs 11-Jul-2021 13:01 3. Data Referenced From Risk Screen - Adult Emergency 11-Jul-2021 20:39 4. Data Referenced From Triage - ED 11-Jul-2021 13:01 Normal [facility] BLOOD CULTURE, BACTERIALon 0 07-11-2021 BLOOD CULTURE, BACTERIAL PATIENT: LALY NAVAS LOCATION: [place] [address] BILL#: [id number] : 86 AGE: SEX: F ORDERED BY: LATANYA CUELLAR SOURCE: Blood COLLECTED: 07/11/21 14:43 ANTIBIOTICS AT BINA.: RECEIVED : 07/11/21 15:49 SITE: PERIPHERAL R E S U L T S BLOOD CULTURE, BACTERIAL FINAL 07/16/21 17:42 No Growth at 1 days No Growth at 2 days No Growth at 3 days No Growth at 4 days NO GROWTH - FINAL REPORT Normal [facility] Comment on above: Performed By: #### B LDC #### [facility] [address] [place] [address] BLOOD CULTURE, BACTERIAL PATIENT: LALY NAVAS LOCATION: [facility] BILL#: [id number] : 86 AGE: SEX: F ORDERED BY: LATANYA CUELLAR SOURCE: Blood COLLECTED: 07/11/21 14:42 ANTIBIOTICS AT BINA.: RECEIVED : 07/11/21 15:47 SITE: PERIPHERAL R E S U L T S BLOOD CULTURE, BACTERIAL FINAL 07/16/21 17:42 No Growth at 1 days No Growth at 2 days No Growth at 3 days No Growth at 4 days NO GROWTH - FINAL REPORT Normal [facility] Comment on above: Performed By: #### B LDC #### [facility] [address] [place] [address] CBC AND DIFFERENTIALon 07-11 % AUTOMATED IMMATURE GRAN 0.6 % Normal 0.0 - 0.9 [facility] Comment on above: Result Comment: Zoila ture Granulocyte Count (IG) includes promyelocytes, myelocytes and metamyelocytes but does not include bands. Percent differential counts (%) should be interpreted in the context of the absolute cell counts (cells/L). Performed By: #### U AMIC #### [facility] [address] [place] [address] Basophils (Bld) [#/Vol] 0.09 10*3/uL Normal 0.00 - 0.1 0 [facility] Comment on above: Performed By: #### U AMIC #### [facility] [address] [place] [address] Basophils/100 WBC (Bld) 1.0 % Normal 0.0 - 2.0 U [facility] Comment on above: Performed By: #### U AMIC #### [facility] [address] [place] [address] Eosinophils (Bld) [#/Vol] 0.56 10*3/uL Normal 0.00 - 0.70 [facility] Comment on above: Performed By: #### U AMIC #### [facility] [address] [place] [address] Eosinophils/100 WBC (Bld) 6.2 % Normal 0.0 - 6.0 [facility] Comment on above: Performed By: #### U AMIC #### [facility] [address] [place] [address] Erythrocyte distribution width (RBC) [Ratio] 14.1 % Normal 11.5 - 14.5 [facility] Comment on above: Performed By: #### U AMIC #### [facility] [address] [place] [address] Hematocrit (Bld) [Volume fraction] 35.9 % Low 36.0 - 46.0 [facility] Comment on above: Performed By: #### U AMIC #### [facility] [address] [place] [address] Hemoglobin (Bld) [Mass/Vol] 12.3 g/dL Normal 12.0 - 16.0 [facility] Comment on above: Performed By: #### U AMIC #### [facility] [address] [place] [address] Lymphocytes (Bld) [#/Vol] 2.39 10*3/uL Normal 1.20 - 4.80 [facility] Comment on above: Performed By: #### U AMIC #### [facility] [address] [place] [address] Lymphocytes/100 WBC (Bld) 26.5 % Normal 13.0 - 44.0 [facility] Comment on above: Performed By: #### U AMIC #### [facility] [address] [place] [address] MCHC (RBC) [Mass/Vol] 34.3 g/dL Normal 32.0 - 36.0 [facility] Comment on above: Performed By: #### U AMIC #### [facility] [address] [place] [address] MCV (RBC) [Entitic vol] 106 fL High 80 - 100 U [facility] Comment on above: Performed By: #### U AMIC #### [facility] [address] [place] [address] Monocytes (Bld) [#/Vol] 0.79 10*3/uL Normal 0.10 - 1.0 0 [facility] Comment on above: Performed By: #### U AMIC #### [facility] [address] [place] [address] Monocytes/100 WBC (Bld) 8.8 % Normal 2.0 - 10.0 [facility] Comment on above: Performed By: #### U AMIC #### [facility] [address] [place] [address] Neutrophils (Bld) [#/Vol] 5.13 10*3/uL Normal 1.20 - 7.70 [facility] Comment on above: Performed By: #### U AMIC #### [facility] [address] [place] [address] Neutrophils/100 WBC (Bld) 56.9 % Normal 40.0 - 80.0 [facility] Comment on above: Performed By: #### U AMIC #### [facility] [address] [place] [address] NUCLEATED RBC 0.0 /100 WBC Normal 0.0-0.0 [facility] Comment on above: Performed By: #### U AMIC #### [facility] [address] [place] [address] Platelets (Bld) [#/Vol] 477 10*3/uL High 150 - 450 [facility] Comment on above: Performed By: #### U AMIC #### [facility] [address] [place] [address] RBC 3.38 x10E12/L Low 4.00 - 5.20 [facility] Comment on above: Performed By: #### U AMIC #### [facility] [address] [place] [address] WBC (Bld) [#/Vol] 9.0 10*3/uL Normal 4.4 - 11.3 [facility] Comment on above: Performed By: #### U AMIC #### [facility] [address] [place] [address] COMPREHENSIVE PANELon 2020 Albumin [Mass/Vol] 4.0 g/dL Normal 3.4 - 5.0 [facility] Comment on above: Performed By: #### B #### [facility] [address] [place] [address] ALP [Catalytic activity/Vol] 65 U/L Normal 33 - 110 [facility] Comment on above: Performed By: #### B MP #### [facility] [address] [place] [address] ALT [Catalytic activity/Vol] 4 U/L Low 7 - 45 [facility] Comment on above: Result Comment: Sarah ents treated with Sulfasalazine may generate falsely decreased results for ALT. Performed By: #### B MP #### [facility] [address] [place] [address] Anion gap [Moles/Vol] 15 mmol/L Normal 10 - 20 [facility] Comment on above: Performed By: #### B MP #### [facility] [address] [place] [address] AST [Catalytic activity/Vol] 11 U/L Normal 9 - 39 [facility] Comment on above: Performed By: #### B MP #### [facility] [address] [place] [address] Bilirubin [Mass/Vol] 0.4 mg/dL Normal 0.0 - 1.2 [facility] Comment on above: Performed By: #### B MP #### [facility] [address] [place] [address] Calcium [Mass/Vol] 9.1 mg/dL Normal 8.6 - 10.6 [facility] Comment on above: Performed By: #### B MP #### [facility] [address] [place] [address] Chloride [Moles/Vol] 104 mmol/L Normal 98 - 107 [facility] Comment on above: Performed By: #### B MP #### [facility] [address] [place] [address] Creatinine [Mass/Vol] 0.69 mg/dL Normal 0.50 - 1.05 [facility] Comment on above: Performed By: #### B MP #### [facility] [address] [place] [address] GFR- AM. >60 Normal >60 [facility] Comment on above: Result Comment: CALC ULATIONS OF ESTIMATED GFR ARE PERFORMED USING THE MDRD STUDY EQUATION FOR THE IDMS-TRACEABLE CREATININE METHODS. CLIN CHEM 2007;53:766-72 Performed By: #### B MP #### [facility] [address] [place] [address] GFR-NON AM. >60 Normal >60 [facility] Comment on above: Performed By: #### B MP #### [facility] [address] [place] [address] Glucose [Mass/Vol] 79 mg/dL Normal 74 - 99 [facility] Comment on above: Performed By: #### B MP #### [facility] [address] [place] [address] HCO3 (Bld) [Moles/Vol] 23 mmol/L Normal 21 - 32 [facility] Comment on above: Performed By: #### B MP #### [facility] [address] [place] [address] Potassium [Moles/Vol] 3.8 mmol/L Normal 3.5 - 5.3 [facility] Comment on above: Performed By: #### B MP #### [facility] [address] [place] [address] Protein [Mass/Vol] 6.4 g/dL Normal 6.4 - 8.2 [facility] Comment on above: Performed By: #### B MP #### [facility] [address] [place] [address] Sodium [Moles/Vol] 138 mmol/L Normal 136 - 145 [facility] Comment on above: Performed By: #### B MP #### [facility] [address] [place] [address] Urea nitrogen [Mass/Vol] 8 mg/dL Normal 6 - 23 [facility] Comment on above: Performed By: #### B MP #### [facility] [address] [place] [address] COOX PANEL,VENOUSon 07-11-20 21 CO HGB 5.0 % Abnormal [facility] Comment on above: Result Comment: REF VALUES NONSMOKERS 0.5-1.5% SMOKERS 0.5-10.0% Performed By: #### C OOXV ####[id number] [place] [address] MET HGB 0.6 % Normal 0.0 - 1.5 [facility] Comment on above: Performed By: #### C OOXV ####[id number] [facility] [address] CORONAVIRUS 2019 BY PCRon SARS-CoV-2 (COVID-19) RNA SUZI+probe Ql (Unsp spec) Not detected Normal Not Detected [facility] Comment on above: Result Comment: . This test has received [facility] Emergency Use Authorization (EUA) and has been verified by [facility] ([facility]). This test is only authorized for the duration of time that circumstances exist to justify the authorization of the emergency use of in vitro diagnostic tests for the detection of SARS-CoV-2 virus and/or diagnosis of COVID-19 infection under section 564(b)(1) of the Act, 21 U.S.C. 360bbb-3(b)(1), unless the authorization is terminated or revoked sooner. [facility] is certified under CLIA-88 as qualified to perform high complexity testing. Testing is performed in the [facility] located at [address] [place] [address]. SARS-CoV-2/Flu/RSV Multiplex Test: Fact sheet for providers: https://www.fda.gov/media/438271/download Fact sheet for patients: https://www.fda.gov/media/062298/download Performed By: #### U AMIC #### [facility] [address] [place] [id number] Lab Specimen Source Nasal, Nasopharyngeal Normal [facility] Comment on above: Performed By: #### U AMIC #### [facility] [address] [place] [address] DATE OF SYMPTOM ONSET [YYYYMMDD]? [id number] Normal [facility] Comment on above: Performed By: #### U AMIC #### [facility] [address] [place] [address] Consult-Urologyon 07-11-2021 Consult-Urology Service: Service: Urology Consult: [...] Known Allergies: Objective: Objective Information: T PRBPSpO2 [id number]/9799% Date/Time07/11 13: 13:019 13:019 13:019 13:01 Range(36.8C - 36.8C ) [...] afebrile, normotensi (more content not included)... Normal [facility] Covid 19 Resultson 1 SARS-CoV-2 (COVID-19) RNA [...] You may also be contacted by the [facility] to see if any of [...] or Naproxen (Aleve) can also be used. Drmb-lsh-imaegae cough and cold medicines can be used according to the instructions on the package. Some zftv-ixu-aumkopn medicines also contain acetaminophen. Make sure you [...] water are not available, use alcohol-based hand rural route carrier. Avoid touching your eyes, nose, and mouth [...] 24 liu (more content not included)... Normal [facility] Provider Note - ED v3on 09-0 Provider Note - ED v3 Provider Note: [...] SIGNIFICANT EVENTS: (more content not included)... Normal [facility] Risk Screen - Adult Emergenc yon 07-11-2021 [...] material; verbal instruction Cultural Considerationsnone Developmental Considerationsnone Amish Considerationsnone Learning Assessment (Other Learner): Learning Assessment (Other Learner): Other learner availableno Pressure Injury/TB/Substance: Pressure Injury: Pressure Injury Present on Admissionno Do you have a coughno Smoking Statusnever smoker Alcohol Usedenies Resources OfferedThrive consult ( for ED's that have services) Admission Risk Screen: Significant IndicatorsComplete CAGE: CAGE: Is this an injured patient at a Trauma Center ([facility]/[place] /[place]): yes C: Have you ever felt you needed to Cut down on your drinking: no A: Have people Annoyed you by criticizing your drinking: no G: Have you ever felt Guilty about drinking: no E: Have you ever felt you needed a drink first thing in the morning (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 Triage - EDon 07-11-2021 Triage - ED [...] obeys commands Best Verbal Response: (V5) oriented [place] Score: 15 Omega Assessment Qualifiers: patient not [...] patient cognitively impaired not cognitively impaired Interventions: Keeley Fall Interventions: LOW INTERVENTIONS: *patient oriented to [...] 11-Jul-2021 13:06 by David Riggins (RN) Normal [facility] UA MICROSCOPICon 07-11-2021 BACTERIA 1+ /HPF Abnormal [facility] Comment on above: Performed By: #### U AMIC #### [facility] [address] [place] [address] Mucus Ql (Urine sed) 4+ /LPF Normal [facility] Comment on above: Performed By: #### U AMIC #### [facility] [address] [place] [address] RBC 9 /HPF Abnormal 0-5 [facility] Comment on above: Performed By: #### U AMIC #### [facility] [address] [place] [address] WBC (U) [#/Vol] /uL Abnormal 0-5 [facility] Comment on above: Performed By: #### U AMIC #### [facility] [address] [place] [address] WBC CLUMPS OCC Normal [facility] Comment on above: Performed By: #### U AMIC #### [facility] [address] [place] [address] Lab Specimen Source Normal [facility] Comment on above: Performed By: #### U AMIC #### [facility] [address] [place] [address] Performed By: #### B MP #### [facility] [address] [place] [address] URINALYSIS WITH CULTURE IF I NDICATEDon 07-11-2021 Appearance (U) HAZY Normal CLEAR [facility] Comment on above: Performed By: #### B MP #### [facility] [address] [place] [address] Bilirubin Ql (U) Negative Normal NEGATIVE [facility] Comment on above: Performed By: #### B MP #### [facility] [address] [place] [address] Color (U) YELLOW Normal STRAW,YELLO W [facility] Comment on above: Performed By: #### B MP #### [facility] [address] [place] [address] Glucose Ql (U) Negative Normal NEGATIVE [facility] Comment on above: Performed By: #### B MP #### [facility] [address] [place] [address] Hemoglobin Ql (U) SMALL (1+) Abnormal NEGATIVE [facility] Comment on above: Performed By: #### B MP #### [facility] [address] [place] [address] Ketones Ql (U) Negative Normal NEGATIVE [facility] Comment on above: Performed By: #### B MP #### [facility] [address] [place] [address] Leukocyte esterase Test strip Ql (U) LARGE (3+) Abnormal NEGATIVE [facility] Comment on above: Performed By: #### B MP #### [facility] [address] [place] [address] Nitrite Ql (U) Positive Abnormal NEGATIVE [facility] Comment on above: Performed By: #### B MP #### [facility] [address] [place] [address] pH (U) 6.0 [pH] Normal 5.0 - 8.0 [facility] Comment on above: Performed By: #### B MP #### [facility] [address] [place] [address] Protein Ql (U) 100 (2+) Abnormal NEGATIVE [facility] Comment on above: Performed By: #### B MP #### [facility] [address] [place] [address] Specific gravity (U) [Rel density] 1.010 Normal 1.005 - 1.035 [facility] Comment on above: Performed By: #### B MP #### [facility] [address] [place] [address] Urobilinogen (U) [Mass/Vol] mg/dL Normal 0.0 - 1.9 [facility] Comment on above: Performed By: #### B MP #### [facility] [address] [place] [address] URINE CULTURE,BACTERIALon 09 -08-2021 URINE CULTURE,BACTERIAL PATIENT: LALY NAVAS LOCATION: [address]#: [id number] : 86 AGE: SEX: F ORDERED BY: LATANYA CUELLAR SOURCE: URINE COLLECTED: 07/11/21 15:06 ANTIBIOTICS AT BINA.: RECEIVED : 07/11/21 16:38 SITE: E S U L T S URINE [...] DOSE DEPENDENT NS=NONSUSCEPTIBLE X=REPORTED IN ERROR Normal [facility] Comment on above: Performed By: #### U AMIC #### [facility] [address] [place] [address] VENOUS FULL PANELon 07-11-20 21 Anion gap [Moles/Vol] 8 mmol/L Low 10 - 25 [facility] Comment on above: Performed By: #### V FPA3 ####[id number] [place] [address] BASE EXCESS-BLOOD 0.3 mmol/L Normal -2.0 - 3.0 [facility] Comment on above: Performed By: #### V FPA3 ####[id number] [place] [address] BICARB, CALCULATED 24.6 mmol/L Normal 22.0 - 26.0 [facility] Comment on above: Performed By: #### V FPA3 ####[id number] [place] [address] CALCIUM,IONIZED 1.21 mmol/L Normal 1.10 - 1.33 [facility] Comment on above: Performed By: #### V FPA3 ####[id number] [place] [address] Chloride [Moles/Vol] 106 mmol/L Normal 98 - 107 [facility] Comment on above: Performed By: #### V FPA3 ####[id number] [place] [address] Glucose [Mass/Vol] 84 mg/dL Normal 74 - 99 [facility] Comment on above: Performed By: #### V FPA3 ####[id number] [place] [address] Hematocrit (Bld) [Volume fraction] 38.0 % Normal 36.0 - 46.0 [facility] Comment on above: Performed By: #### V FPA3 ####[id number] [place] [address] HGB,CALCULATED 12.9 g/dL Normal 12.0 - 16.0 [facility] Comment on above: Performed By: #### V FPA3 ####[id number] [place] [address] Lactate [Moles/Vol] 0.8 mmol/L Normal 0.4 - 2.0 [facility] Comment on above: Performed By: #### V FPA3 ####[id number] [place] [address] Oxygen (Bld) [Partial pressure] 37 mm[Hg] Normal 35 - 45 [facility] Comment on above: Performed By: #### V FPA3 ####[id number] [place] [address] PATIENT TEMPERATURE 37.0 degrees C Normal [facility]3] Comment on above: Result Comment: NOTE : PATIENT RESULTS ARE NOT CORRECTED FOR TEMPERATURE. Performed By: #### V FPA3 ####[id number] [place] [address] PCO2 38 mmHg Low 41 - 51 [facility] Comment on above: Performed By: #### V FPA3 ####[id number] [place] [address] pH (Bld) 7.42 [pH] Normal 7.33 - 7.43 [facility] Comment on above: Performed By: #### V FPA3 ####[id number] [place] [address] Potassium [Moles/Vol] 3.8 mmol/L Normal 3.5 - 5.3 [facility] Comment on above: Performed By: #### V FPA3 ####[id number] [place] [address] SO2 76 % High 45 - 75 [facility] Comment on above: Performed By: #### V FPA3 ####[id number] [place] [address] Sodium [Moles/Vol] 135 mmol/L Low 136 - 145 [facility] [facility] Comment on above: Performed By: #### V FPA3 ####[id number] [place] [address] CONVERT NEPHROSTOMY CATH-NEP HROURETERAL CATH,PERC INCLUDE NEPHROSTO/URETEROGRAM [...] or ureteral stent. COMPARISON: None. ACCESSION NUMBER(S): [id number]; [id number]; [id number] ORDERING CLINICIAN: POLO PLUMMER TECHNIQUE: INTERVENTIONALIST(S): Attending: [...] Maximum sterile barrier technique was implemented. Initial spray maker fluoroscopic image demonstrates an intact percutaneous nephrostomy tube in satisfactory position. ANTEGRADE PYELOGRAM FINDINGS: Dilute contrast was then injected through the existing percutaneous nephrostomy tube. This demonstrated Initial spray maker fluoroscopic spot image demonstrates an intact existing [...] removed over the wire. Subsequently, a 5 Afghan Kumpe catheter was advanced over the wire and the wire catheter combination were advanced into the distal ureter attempt was made to advanced wire past the stricture, which was unsuccessful. The Kumpe catheter was removed and a 9 Afghan x 30 cm peel-away sheath was advanced [...] and a 4 mm x 4 mm [place] balloon was advanced over the wire. And balloon dilatation of the distal left ureter was performed under fluoroscopy. An appropriate measurement was taken and a new 8.5 Fr x 24 cm nephroureteral stent/catheter was subsequently inserted over the guidewire. The guidewire and nephrostomy inner stylet were removed. The self-formin (more content not included)... Normal [facility] DIL/NEPH/UREon 07-02-2021 DIL/NEPH/URE Patient Name: LALY NAVAS [...] or ureteral stent. COMPARISON: None. ACCESSION NUMBER(S): [id number]; [id number]; [id number] ORDERING CLINICIAN: POLO PLUMMER TECHNIQUE: INTERVENTIONALIST(S): Attending: [...] Maximum sterile barrier technique was implemented. Initial spray maker fluoroscopic image demonstrates an intact percutaneous nephrostomy tube in satisfactory position. ANTEGRADE PYELOGRAM FINDINGS: Dilute contrast was then injected through the existing percutaneous nephrostomy tube. This demonstrated Initial spray maker fluoroscopic spot image demonstrates an intact existing [...] removed over the wire. Subsequently, a 5 Afghan Kumpe catheter was advanced over the wire and the wire catheter combination were advanced into the distal ureter attempt was made to advanced wire past the stricture, which was unsuccessful. The Kumpe catheter was removed and a 9 Afghan x 30 cm peel-away sheath was advanced [...] and a 4 mm x 4 mm [place] balloon was advanced over the wire. And balloon dilatation of the distal left ureter was performed under fluoroscopy. An appropriate measurement was taken and a new 8.5 Fr x 24 cm nephroureteral stent/catheter was subsequently inserted over the guidewire. The guidewire and nephrostomy inner stylet were removed. The self-formin (more content not included)... Normal [facility] DIL/URETERon 07-02-2021 DIL/URETER Patient Name: LALY NAVAS [...] or ureteral stent. COMPARISON: None. ACCESSION NUMBER(S): [id number]; [id number]; [id number] ORDERING CLINICIAN: POLO PLUMMER TECHNIQUE: INTERVENTIONALIST(S): Attending: [...] Maximum sterile barrier technique was implemented. Initial spray maker fluoroscopic image demonstrates an intact percutaneous nephrostomy tube in satisfactory position. ANTEGRADE PYELOGRAM FINDINGS: Dilute contrast was then injected through the existing percutaneous nephrostomy tube. This demonstrated Initial spray maker fluoroscopic spot image demonstrates an intact existing [...] removed over the wire. Subsequently, a 5 Afghan Kumpe catheter was advanced over the wire and the wire catheter combination were advanced into the distal ureter attempt was made to advanced wire past the stricture, which was unsuccessful. The Kumpe catheter was removed and a 9 Afghan x 30 cm peel-away sheath was advanced [...] and a 4 mm x 4 mm [place] balloon was advanced over the wire. And balloon dilatation of the distal left ureter was performed under fluoroscopy. An appropriate measurement was taken and a new 8.5 Fr x 24 cm nephroureteral stent/catheter was subsequently inserted over the guidewire. The guidewire and nephrostomy inner stylet were removed. The self-formin (more content not included)... Normal [facility] Office Visit (Urology)on Follow-up visit Orders SocHx: [...] Chief Complaint left NT History of Present [id number] year old female diagnosed with cervical cancer [...] UC ORGANISM 1: NO SIGNIFICANT GROWTH Normal [facility] Comment on above: Performed By: #### M 120.0100 #### ML - LABORATORY [address] [place] [address] CA 125on 04-26-2020 CA 125 21 U/mL Normal <39 [facility] Comment on above: Performed By: #### C A125 #### [facility] Routine Lab [address] [id number] GC/Chlamydia Amp, Uron 04-06 Chlamydia Amplif, Ur Normal [facility] Comment on above: Result Comment: Nega tive for For screening asymptomatic women, a vaginal swab specimen (APTIMA vaginal swab 486651) is optimal. Urine specimens have reduced sensitivity for Chlamydia trachomatis or Neisseria gonorrhoeae infection in female patients without symptoms. This test was developed and its performance characteristics determined by [facility] [place] ([facility] It has not been cleared or approved by the FDA. [facility] is regulated under CLIA as qualified to perform high complexity testing. This test is used for clinical purposes. It should not be regarded as investigational or for research. Chlamydia For screening asymptomatic women, a vaginal swab specimen (APTIMA vaginal swab 998376) is optimal. Urine specimens have reduced sensitivity for Chlamydia trachomatis or Neisseria gonorrhoeae infection in female patients without symptoms. This test was developed and its performance characteristics determined by [facility] [place] ( [facility]). It has not been cleared or approved by the FDA. [facility] is regulated under CLIA as qualified to perform high complexity testing. This test is used for clinical purposes. It should not be regarded as investigational or for research. trachomatis by For screening asymptomatic women, a vaginal swab specimen (APTIMA vaginal swab 422997) is optimal. Urine specimens have reduced sensitivity for Chlamydia trachomatis or Neisseria gonorrhoeae infection in female patients without symptoms. This test was developed and its performance characteristics determined by [facility] [place] ([facility] It has not been cleared or approved by the FDA. [facility] is regulated under CLIA as qualified to perform high complexity testing. This test is used for clinical purposes. It should not be regarded as investigational or for research. amplification. For screening asymptomatic women, a vaginal swab specimen (APTIMA vaginal swab 948228) is optimal. Urine specimens have reduced sensitivity for Chlamydia trachomatis or Neisseria gonorrhoeae infection in female patients without symptoms. This test was developed and its performance characteristics determined by [facility] and [facility] [place] ([facility] It has not been cleared or approved by the FDA. [facility] is regulated under CLIA as qualified to perform high complexity testing. This test is used for clinical purposes. It should not be regarded as investigational or for research. Performed By: #### U GCCT #### [facility] Routine Lab [address] [place], [place] [address] GC Amplification, Ur NGNEG Normal [facility] Comment on above: Performed By: #### U GCCT #### [facility] Routine Lab [address] [place], [place] [address] GC/Chlamydia Amp, Uron 04-03 Chlamydia Amplif, Ur Normal [facility] Comment on above: Result Comment: Nega tive for For screening asymptomatic women, a vaginal swab specimen (APTIMA vaginal swab 241847) is optimal. Urine specimens have reduced sensitivity for Chlamydia trachomatis or Neisseria gonorrhoeae infection in female patients without symptoms. This test was developed and its performance characteristics determined by [facility] and [facility] [place] ([facility] It has not been cleared or approved by the FDA. [facility] is regulated under CLIA as qualified to perform high complexity testing. This test is used for clinical purposes. It should not be regarded as investigational or for research. Chlamydia For screening asymptomatic women, a vaginal swab specimen (APTIMA vaginal swab 543933) is optimal. Urine specimens have reduced sensitivity for Chlamydia trachomatis or Neisseria gonorrhoeae infection in female patients without symptoms. This test was developed and its performance characteristics determined by [facility] [place] ([facility] It has not been cleared or approved by the FDA. [facility] is regulated under CLIA as qualified to perform high complexity testing. This test is used for clinical purposes. It should not be regarded as investigational or for research. trachomatis by For screening asymptomatic women, a vaginal swab specimen (APTIMA vaginal swab 223867) is optimal. Urine specimens have reduced sensitivity for Chlamydia trachomatis or Neisseria gonorrhoeae infection in female patients without symptoms. This test was developed and its performance characteristics determined by [facility] and [facility] [place] ([facility] It has not been cleared or approved by the FDA. [facility] is regulated under CLIA as qualified to perform high complexity testing. This test is used for clinical purposes. It should not be regarded as investigational or for research. amplification. For screening asymptomatic women, a vaginal swab specimen (APTIMA vaginal swab 319003) is optimal. Urine specimens have reduced sensitivity for Chlamydia trachomatis or Neisseria gonorrhoeae infection in female patients without symptoms. This test was developed and its performance characteristics determined by [facility] [place] ([facility] It has not been cleared or approved by the FDA. [facility] is regulated under CLIA as qualified to perform high complexity testing. This test is used for clinical purposes. It should not be regarded as investigational or for research. Performed By: #### U GCCT #### [facility] Routine Lab [address] [place], [place] [address] GC Amplification, Ur NGNEG Normal [facility] Comment on above: Performed By: #### U GCCT #### [facility] Routine Lab [address] [place], [place] [id number] Vital Signs Date Time Vital Sign Value Performing Clinician Facility 06-04-2025 04:00-0400 Body temperature 98 [degF] Dr. Jatin Garcia MD Work Phone: 0(428)515-338343 [place] [address] 06-04-2025 04:00-0400 Diastolic blood pressure 87 mm[Hg] Dr. Jatin Garcia MD Work Phone: 3(705)627-914743 [place] [address] 06-04-2025 04:00-0400 Heart rate 65 /min Dr. Jatin Garcia MD Work Phone: 1(949)737-018343 [place] [address] 06-04-2025 04:00-0400 Respiratory rate 18 /min Dr. Jatin Garcia MD Work Phone: 6(639)075-083443 [place] [address] 06-04-2025 04:00-0400 SaO2% (BldA) [Mass fraction] 99 % Dr. Jatin Garcia MD Work Phone: 5(576)397-565943 [place] [address] 06-04-2025 04:00-0400 Systolic blood pressure 137 mm[Hg] Dr. Jatin Garcia MD Work Phone: 8(678)659-945143 [place] [address] 06-03-2025 23:28-0400 Body height 165.[address] Jatin Garcia MD Work Phone: 8(986)104-031643 [place] [address] 06-03-2025 23:28-0400 Body mass index (BMI) [Ratio] 18.1 kg/m2 Dr. Jatin Garcia MD Work Phone: 9(186)695-716043 [place] [address] 06-03-2025 23:28-0400 Body weight 49.[address] Jatin Garcia MD Work Phone: 6(354)163-674443 [place] [address] 06-02-2025 02:54-0400 Body temperature 98.6 [degF] Dr. Jatin Garcia MD Work Phone: 9(051)810-979543 [place] [address] 06-02-2025 02:54-0400 Diastolic blood pressure 75 mm[Hg] Dr. Jatin Garcia MD Work Phone: 9(664)514-922043 [place] [address] 06-02-2025 02:54-0400 Heart rate 75 /min Dr. Jatin Garcia MD Work Phone: 8(809)585-707943 [place] [address] 06-02-2025 02:54-0400 Respiratory rate 18 /min Dr. Jatin Garcia MD Work Phone: 1(843)573-680119 [place] [address] 06-02-2025 02:54-0400 SaO2% (BldA) [Mass fraction] 98 % Dr. Jatin Garcia MD Work Phone: 2(638)684-473119 [place] [address] 06-02-2025 02:54-0400 Systolic blood pressure 118 mm[Hg] Dr. Jatin Garcia MD Work Phone: 6(156)908-129443 [place] [address] 06-01-2025 23:55-0400 Body height 165.[address] Jatin Garcia MD Work Phone: 3(549)684-015343 [place] [address] 06-01-2025 23:55-0400 Body mass index (BMI) [Ratio] 20 kg/m2 Dr. Jatin Garcia MD Work Phone: 9(814)494-445143 [place] [address] 06-01-2025 23:55-0400 Body weight 54.[address] Jatin Garcia MD Work Phone: 3(763)742-386543 [place] [address] 04-09-2025 02:52-0400 Body temperature 98 [degF] Dr. Jatin Garcia MD Work Phone: 8(482)801-780643 [place] [address] 04-09-2025 02:52-0400 Diastolic blood pressure 72 mm[Hg] Dr. Jatin Garcia MD Work Phone: 7(527)949-303943 [place] [address] 04-09-2025 02:52-0400 Heart rate 81 /min Dr. Jatin Garcia MD Work Phone: 1(238)945-246719 [place] [address] 04-09-2025 02:52-0400 Respiratory rate 14 /min Dr. Jatin Garcia MD Work Phone: 6(804)561-423643 [place] [address] 04-09-2025 02:52-0400 SaO2% (BldA) [Mass fraction] 98 % Dr. Jatin Garcia MD Work Phone: 2(568)295-322519 [place] [address] 04-09-2025 02:52-0400 Systolic blood pressure 118 mm[Hg] Dr. Jatin Garcia MD Work Phone: 7(056)849-554043 [place] [address] 04-09-2025 00:20-0400 Body height 165.[address] Jatin Garcia MD Work Phone: [facility] 04-09-2025 00:20-0400 Body mass index (BMI) [Ratio] 22.4 kg/m2 Dr. Jatin Garcia MD Work Phone: [facility] 04-09-2025 00:20-0400 Body weight [address] Jatin Garcia MD Work Phone: [facility] 03-15-2025 19:03-0400 Diastolic Blood Pressure Non-Invasive 91 mm[Hg] GUCCI ALEXANDRE MD [address] 03-15-2025 19:03-0400 Heart rate 77 /min GUCCI ALEXANDRE MD [address] [place] [address] 03-15-2025 19:03-0400 Respiratory rate 18 /min GUCCI ALEXANDRE MD [address] [place] [address] 03-15-2025 19:03-0400 Systolic Blood Pressure Non-Invasive 158 mm[Hg] GUCCI ALEXANDRE MD [address] [place] [address] 03-15-2025 16:48-0400 Diastolic Blood Pressure Non-Invasive 87 mm[Hg] GUCCI ALEXANDRE MD [address] [place] [address] 03-15-2025 16:48-0400 Heart rate 67 /min GUCCI ALEXANDRE MD [address] [place] [address] 03-15-2025 16:48-0400 Respiratory rate 18 /min GUCCI ALEXANDRE MD [address] [place] [address] 03-15-2025 16:48-0400 Systolic Blood Pressure Non-Invasive 144 mm[Hg] GUCCI ALEXANDRE MD [address] [place] [address] 03-15-2025 14:52-0400 Body temperature 98.42 [degF] GUCCI ALEXANDRE MD [address] [place] [address] 03-15-2025 14:52-0400 Body weight 53.1 kg GUCCI ALEXANDRE MD [address] [place] [address] 03-15-2025 14:52-0400 Diastolic Blood Pressure Non-Invasive 86 mm[Hg] GUCCI ALEXANDRE MD [facility] 03-15-2025 14:52-0400 Heart rate 69 /min GUCCI ALEXANDRE MD [facility] 03-15-2025 14:52-0400 Respiratory rate 18 /min GUCCI ALEXANDRE MD [facility] 03-15-2025 14:52-0400 Systolic Blood Pressure Non-Invasive 130 mm[Hg] GUCCI ALEXANDRE MD [facility] 03-09-2025 16:36-0400 Diastolic Blood Pressure Non-Invasive 92 mm[Hg] DELMAR MICHAEL DO [facility] 03-09-2025 16:36-0400 Heart rate 57 /min DELMAR ALEC DO [facility] 03-09-2025 16:36-0400 Respiratory rate 18 /min DELMAR ALEC DO [facility] 03-09-2025 16:36-0400 Systolic Blood Pressure Non-Invasive 142 mm[Hg] DELMAR ALEC DO [facility] 03-09-2025 14:20-0400 Diastolic Blood Pressure Non-Invasive 86 mm[Hg] DELMAR ALEC DO [facility] 03-09-2025 14:20-0400 Heart rate 80 /min DELMAR ALEC DO [facility] 03-09-2025 14:20-0400 Respiratory rate 18 /min DELMAR ALEC DO [facility] 03-09-2025 14:20-0400 Systolic Blood Pressure Non-Invasive 130 mm[Hg] DELMAR ALEC DO [facility] 03-09-2025 12:17-0400 Body temperature 96.98 [degF] DELMAR MICHAEL DO [facility] 03-09-2025 12:17-0400 Body weight 53 kg DELMAR MICHAEL DO [facility] 03-09-2025 12:17-0400 Diastolic Blood Pressure Non-Invasive 95 mm[Hg] DELMAR MICHAEL DO [facility] 03-09-2025 12:17-0400 Heart rate 81 /min DELMAR MICHAEL DO [facility] 03-09-2025 12:17-0400 Respiratory rate 18 /min DELMAR MICHAEL DO [facility] 03-09-2025 12:17-0400 Systolic Blood Pressure Non-Invasive 134 mm[Hg] DELMAR MICHAEL DO [facility] 02-16-2025 10:00-0400 Body temperature 96.98 [degF] PINA PANTOJA [employer] [facility] 02-16-2025 10:00-0400 Heart rate 63 /min PINA PANTOJA [employer] [facility] 02-16-2025 10:00-0400 Respiratory rate 18 /min PINA PANTOJA [employer] [facility] 02-16-2025 10:00-0400 Systolic Blood Pressure Non-Invasive 122 mm[Hg] PINA PANTOJA [employer] [facility] 02-16-2025 09:40-0400 Heart rate 60 /min PINA PANTOJA [employer] [facility] 02-16-2025 09:40-0400 Body temperature 97.52 [degF] PINA PANTOJA [employer] [facility] 02-16-2025 09:40-0400 Diastolic Blood Pressure Non-Invasive 79 mm[Hg] PINA PANTOJA [employer] [facility] 02-16-2025 09:40-0400 Mean blood pressure 88 mm[Hg] PINA PANTOJA [employer] [facility] 02-16-2025 09:40-0400 Respiratory rate 16 /min PINA PANTOJA [employer] [facility] 02-16-2025 09:40-0400 Systolic Blood Pressure Non-Invasive 104 mm[Hg] PINAALICE PANTOJA [employer]ATHOLIC [employer] [facility] 02-16-2025 09:25-0400 Diastolic Blood Pressure Non-Invasive 71 mm[Hg] PINA PANTOJA [employer] [facility] 02-16-2025 09:25-0400 Mean blood pressure 83 mm[Hg] PINA PANTOJA [employer] [facility] 02-16-2025 09:25-0400 Systolic Blood Pressure Non-Invasive 107 mm[Hg] PINAALICE PANTOJA [employer] [facility] 02-16-2025 09:25-0400 Heart rate 67 /min PINA PANTOJA [employer] [facility] 02-16-2025 09:25-0400 Respiratory rate 16 /min PINA PANTOJA [employer] [facility] 02-16-2025 09:10-0400 Mean blood pressure 101 mm[Hg] PINA PANTOJA [employer] [facility] 02-16-2025 09:10-0400 Blood Pressure Cuff Size PINAALICE PANTOJA [employer] [facility] 02-16-2025 09:10-0400 Blood Pressure Location PINAALICE PANTOJA [employer] [facility] 02-16-2025 09:10-0400 Blood Pressure Method PINAALICE PANTOJA [employer] [facility] 02-16-2025 09:10-0400 Body temperature 97.52 [degF] PINA PANTOJA [employer] [facility] 02-16-2025 09:00-0400 Respiratory Rate - Anes 4 br/min PINA PANTOJA [employer] [facility] 02-16-2025 08:55-0400 Respiratory Rate - Anes 19 br/min PINA PANTOJA [employer] [facility] 02-16-2025 08:50-0400 Respiratory Rate - Anes 10 br/min PINA PANTOJA [employer] [facility] 02-16-2025 06:37-0400 Body height 167.6 cm PINA PANTOJA [employer] [facility] 02-16-2025 06:37-0400 Body weight 110.7 kg PINA PANTOJA [employer] [facility] 02-16-2025 06:37-0400 Heart rate 70 /min PINA PANTOJA [employer] [facility] 12-22-2024 12:10-0500 Body temperature 96.98 [degF] NASRIN ISABEL MD [facility] 12-22-2024 12:10-0500 Diastolic Blood Pressure Non-Invasive 66 mm[Hg] NASRIN ISABEL MD [facility] 12-22-2024 12:10-0500 Heart rate 54 /min NASRIN ISABEL MD [facility] 12-22-2024 12:10-0500 Respiratory rate 16 /min NASRIN ISABEL MD [facility] 12-22-2024 12:10-0500 Systolic Blood Pressure Non-Invasive 106 mm[Hg] NASRIN ISABEL MD [facility] 12-22-2024 11:54-0500 Body temperature 97.34 [degF] NASRIN ISABEL MD [facility] 12-22-2024 11:54-0500 Diastolic Blood Pressure Non-Invasive 77 mm[Hg] NASRIN ISABEL MD [facility] 12-22-2024 11:54-0500 Heart rate 53 /min NASRIN ISABEL MD [facility] 12-22-2024 11:54-0500 Mean blood pressure 89 mm[Hg] NASRIN ISABEL MD [facility] 12-22-2024 11:54-0500 Respiratory rate 18 /min NASRIN ISABEL MD [facility] 12-22-2024 11:54-0500 Systolic Blood Pressure Non-Invasive 117 mm[Hg] NASRIN ISABEL MD [facility] 12-22-2024 11:35-0500 Diastolic Blood Pressure Non-Invasive 80 mm[Hg] NASRIN ISABEL MD [facility] 12-22-2024 11:35-0500 Heart rate 51 /min NASRIN ISABEL MD [facility] 12-22-2024 11:35-0500 Mean blood pressure 89 mm[Hg] NASRIN ISABEL MD [facility] 12-22-2024 11:35-0500 Respiratory rate 18 /min NASRIN ISABEL MD [facility] 12-22-2024 11:35-0500 Systolic Blood Pressure Non-Invasive 111 mm[Hg] NASRIN ISABEL MD [facility] 12-22-2024 11:20-0500 Body temperature 97.16 [degF] NASRIN ISABEL MD [facility] 12-22-2024 11:20-0500 Heart rate 76 /min NASRIN ISABEL MD [facility] 12-22-2024 11:20-0500 Mean blood pressure 108 mm[Hg] NASRIN ISABEL MD [facility] 12-22-2024 11:15-0500 Respiratory Rate - Anes 0 br/min NASRIN ISABEL MD [facility] 12-22-2024 11:10-0500 Respiratory Rate - Anes 6 br/min NASRIN ISABEL MD [facility] 12-22-2024 11:05-0500 Respiratory Rate - Anes 13 br/min NASRIN ISABEL MD [facility] 12-22-2024 10:45-0500 Body temperature 96.8 [degF] NASRIN ISABEL MD [facility] 12-22-2024 10:30-0500 Body temperature 96.8 [degF] NASRIN ISABEL MD [facility] 12-22-2024 10:15-0500 Body temperature 96.8 [degF] NASRIN ISABEL MD [facility] 12-22-2024 08:08-0500 Body height 167.6 cm NASRIN ISABEL MD [facility] 12-22-2024 08:08-0500 Body weight 53.6 kg NASRIN ISABEL MD [facility] 12-22-2024 08:08-0500 Heart rate 57 /min NASRIN ISABEL MD [facility] 08-11-2024 12:08-0400 Body temperature 96.62 [degF] NASRIN ISABEL MD [facility] 08-11-2024 12:08-0400 Diastolic Blood Pressure Non-Invasive 94 mm[Hg] NASRIN ISABEL MD [facility] 08-11-2024 12:08-0400 Heart rate 80 /min NASRIN ISABEL MD [facility] 08-11-2024 12:08-0400 Heart rate 64 /min NASRIN ISABEL MD [facility] 08-11-2024 12:08-0400 Respiratory rate 16 /min NASRIN ISABEL MD [facility] 08-11-2024 12:08-0400 Systolic Blood Pressure Non-Invasive 137 mm[Hg] NASRIN ISABEL MD [facility] 08-11-2024 11:44-0400 Heart rate 59 /min NASRIN ISABEL MD [facility] 08-11-2024 11:35-0400 Body temperature 96.8 [degF] NASRIN ISABEL MD [facility] 08-11-2024 11:35-0400 Diastolic Blood Pressure Non-Invasive 97 mm[Hg] NASRIN ISABEL MD [facility] 08-11-2024 11:35-0400 Heart rate 61 /min NASRIN ISABEL MD [facility] 08-11-2024 11:35-0400 Mean blood pressure 108 mm[Hg] NASRIN ISABEL MD [facility] 08-11-2024 11:35-0400 Respiratory rate 16 /min NASRIN ISABEL MD [facility] 08-11-2024 11:35-0400 Systolic Blood Pressure Non-Invasive 127 mm[Hg] NASRIN ISABEL MD [facility] 08-11-2024 11:20-0400 Diastolic Blood Pressure Non-Invasive 99 mm[Hg] NASRIN ISABEL MD [facility] 08-11-2024 11:20-0400 Mean blood pressure 113 mm[Hg] NASRIN ISABEL MD [facility] 08-11-2024 11:20-0400 Respiratory rate 16 /min NASRIN ISABEL MD [facility] 08-11-2024 11:20-0400 Systolic Blood Pressure Non-Invasive 138 mm[Hg] NASRIN ISABEL MD [facility] 08-11-2024 10:50-0400 Body temperature 97.16 [degF] NASRIN ISABEL MD [facility] 08-11-2024 10:40-0400 Respiratory Rate - Anes 0 br/min NASRIN ISABEL MD [facility] 08-11-2024 10:35-0400 Body temperature 96.82 [degF] NASRIN ISABEL MD [facility] 08-11-2024 10:35-0400 Respiratory Rate - Anes 9 br/min NASRIN ISABEL MD [facility] 08-11-2024 10:30-0400 Body temperature 96.73 [degF] NASRIN ISABEL MD [facility] 08-11-2024 10:30-0400 Respiratory Rate - Anes 9 br/min NASRIN ISABEL MD [facility] 08-11-2024 10:25-0400 Body temperature 96.8 [degF] NASRIN ISABEL MD [facility] 08-11-2024 08:31-0400 Body height 163.8 cm NASRIN ISABEL MD [facility] 08-11-2024 08:31-0400 Body weight 59.5 kg NASRIN ISABEL MD [facility] 08-11-2024 08:31-0400 Heart rate 72 /min NASRIN ISABEL MD [facility] 08-06-2024 07:07-0400 Blood Pressure Cuff Size NASRIN ISABEL MD [facility] 08-06-2024 07:07-0400 Blood Pressure Location NASRIN ISABEL MD [facility] 08-06-2024 07:07-0400 Blood Pressure Method NASRIN ISABEL MD [facility] 08-06-2024 07:07-0400 Body height 165 cm NASRIN ISABEL MD [facility] 08-06-2024 07:07-0400 Body temperature 98.06 [degF] NASRIN ISABEL MD [facility] 08-06-2024 07:07-0400 Body weight 59.8 kg NASRIN ISABEL MD [facility] 08-06-2024 07:07-0400 Body weight 21.97 kg/m2 NASRIN ISABEL MD [facility] 08-06-2024 07:07-0400 Diastolic Blood Pressure Non-Invasive 75 mm[Hg] NASRIN ISABEL MD [facility] 08-06-2024 07:07-0400 Heart rate 64 /min NASRIN ISABEL MD [facility] 08-06-2024 07:07-0400 Systolic Blood Pressure Non-Invasive 151 mm[Hg] NASRIN ISABEL MD [facility] 06-09-2024 10:50-0400 Body temperature 96.98 [degF] NASRIN ISABEL MD [facility] 06-09-2024 10:50-0400 Diastolic Blood Pressure Non-Invasive 86 mm[Hg] NASRIN ISABEL MD [facility] 06-09-2024 10:50-0400 Heart rate 58 /min NASRIN ISABEL MD [facility] 06-09-2024 10:50-0400 Respiratory rate 18 /min NASRIN ISABEL MD [facility] 08-07-2024 10:50-0400 Systolic Blood Pressure Non-Invasive 122 mm[Hg] NASRIN ISABEL MD [facility] 06-09-2024 10:40-0400 Body temperature 96.8 [degF] NASRIN ISABEL MD [facility] 06-09-2024 10:40-0400 Diastolic Blood Pressure Non-Invasive 98 mm[Hg] NASRIN ISABEL MD [facility] 06-09-2024 10:40-0400 Heart rate 59 /min NASRIN ISABEL MD [facility] 06-09-2024 10:40-0400 Mean blood pressure 108 mm[Hg] NASRIN ISABEL MD [facility] 06-09-2024 10:40-0400 Respiratory rate 16 /min NASRIN ISABEL MD [facility] 06-09-2024 10:40-0400 Systolic Blood Pressure Non-Invasive 121 mm[Hg] NASRIN ISABEL MD [facility] 06-09-2024 10:25-0400 Diastolic Blood Pressure Non-Invasive 94 mm[Hg] NASRIN ISABEL MD [facility] 06-09-2024 10:25-0400 Heart rate 54 /min NASRIN ISABEL MD [facility] 06-09-2024 10:25-0400 Mean blood pressure 108 mm[Hg] NASRIN ISABEL MD [facility] 06-09-2024 10:25-0400 Respiratory rate 16 /min NASRIN ISABEL MD [facility] 06-09-2024 10:25-0400 Systolic Blood Pressure Non-Invasive 142 mm[Hg] NASRIN ISABEL MD [facility] 06-09-2024 10:10-0400 Heart rate 57 /min NASRIN ISABEL MD [facility] 06-09-2024 10:10-0400 Mean blood pressure 111 mm[Hg] NASRIN ISABEL MD [facility] 06-09-2024 09:40-0400 Body temperature 97.16 [degF] NASRIN ISABEL MD [facility] 06-09-2024 09:35-0400 Respiratory Rate - Anes 13 br/min NASRIN ISABEL MD [facility] 06-09-2024 09:30-0400 Respiratory Rate - Anes 5 br/min NASRIN ISABEL MD [facility] 06-09-2024 09:25-0400 Respiratory Rate - Anes 6 br/min NASRIN ISABEL MD [facility] 06-09-2024 09:20-0400 Body temperature 96.73 [degF] NASRIN ISABEL MD [facility] 06-09-2024 09:15-0400 Body temperature 96.69 [degF] NASRIN ISABEL MD [facility] 06-09-2024 09:10-0400 Body temperature 96.55 [degF] NASRIN ISABEL MD [facility] 06-09-2024 06:48-0400 Body weight 21.18 kg/m2 NASRIN ISABEL MD [facility] 06-09-2024 06:46-0400 Body height 167.6 cm NASRIN ISABEL MD [facility] 06-09-2024 06:46-0400 Body weight 59.5 kg NASRIN ISABEL MD [facility] 06-09-2024 06:46-0400 Heart rate 70 /min NASRIN ISABEL MD [facility] 04-14-2024 13:47-0400 Body temperature 95.72 [degF] OLE PACE MD [facility] 04-14-2024 13:47-0400 Diastolic Blood Pressure Non-Invasive 88 mm[Hg] OLE PACE MD [facility] 04-14-2024 13:47-0400 Heart rate 54 /min OLE PACE MD [facility] 04-14-2024 13:47-0400 Reason For Taking VItal Signs OLE PACE MD [facility] 04-14-2024 13:47-0400 Respiratory rate 16 /min OLE PCAE MD [facility] 04-14-2024 13:47-0400 Systolic Blood Pressure Non-Invasive 123 mm[Hg] OLE PACE MD [facility] 04-14-2024 13:40-0400 Body temperature 96.8 [degF] OLE PACE MD [facility] 04-14-2024 13:40-0400 Diastolic Blood Pressure Non-Invasive 84 mm[Hg] OLE PACE MD [facility] 04-14-2024 13:40-0400 Heart rate 53 /min OLE PACE MD [facility] 04-14-2024 13:40-0400 Mean blood pressure 92 mm[Hg] OLE PACE MD [facility] 04-14-2024 13:40-0400 Respiratory rate 16 /min OLE PACE MD [facility] 04-14-2024 13:40-0400 Systolic Blood Pressure Non-Invasive 113 mm[Hg] OLE PACE MD [facility] 04-14-2024 13:25-0400 Body temperature 97.34 [degF] OLE PACE MD [facility] 04-14-2024 13:25-0400 Diastolic Blood Pressure Non-Invasive 85 mm[Hg] OLE PACE MD [facility] 04-14-2024 13:25-0400 Heart rate 47 /min OLE PACE MD [facility] 04-14-2024 13:25-0400 Mean blood pressure 95 mm[Hg] OLE PACE MD [facility] 04-14-2024 13:25-0400 Respiratory rate 16 /min OLE PACE MD [facility] 04-14-2024 13:25-0400 Systolic Blood Pressure Non-Invasive 123 mm[Hg] OLE PACE MD [facility] 04-14-2024 13:15-0400 Heart rate 61 /min OLE PACE MD [facility] 04-14-2024 13:15-0400 Respiratory Rate - Anes 11 br/min OLE PACE MD [facility] 04-14-2024 13:10-0400 Respiratory Rate - Anes 14 br/min OLE PACE MD [facility] 04-14-2024 13:05-0400 Respiratory Rate - Anes 0 br/min OLE PACE MD [facility] 04-14-2024 11:36-0400 Body height 167.6 cm OLE PACE MD [facility] 04-14-2024 11:36-0400 Body weight 61.5 kg OLE PACE MD [facility] 04-14-2024 11:36-0400 Heart rate 79 /min OLE PACE MD [facility] 03-03-2024 15:27-0400 Body temperature 97.52 [degF] OLE PACE MD [facility] 03-03-2024 15:27-0400 Diastolic blood pressure 95 mm[Hg] OLE PACE MD [facility] 03-03-2024 15:27-0400 Heart rate 58 /min OLE PACE MD [facility] 03-03-2024 15:27-0400 Respiratory rate 16 /min OLE PACE MD [facility] 03-03-2024 15:27-0400 Systolic blood pressure 140 mm[Hg] OLE PACE MD [facility] 03-03-2024 13:53-0400 Body temperature 96.98 [degF] OLE PACE MD [address] [place] [address] 03-03-2024 13:53-0400 Diastolic Blood Pressure Non-Invasive 81 mm[Hg] OLE PACE MD [address] 03-03-2024 13:53-0400 Heart rate 62 /min OLE PACE MD [address] [place] [address] 03-03-2024 13:53-0400 Reason For Taking VItal Signs OLE PACE MD [address] [place] [address] 03-03-2024 13:53-0400 Respiratory rate 16 /min OLE PACE MD [facility] 03-03-2024 13:53-0400 Systolic Blood Pressure Non-Invasive 125 mm[Hg] OLE PACE MD [facility] 03-03-2024 13:45-0400 Heart rate 69 /min OLE PACE MD [facility] 03-03-2024 13:45-0400 Respiratory Rate - Anes 17 br/min OLE PACE MD [facility] 03-03-2024 13:44-0400 Diastolic Blood Pressure Non-Invasive 95 mm[Hg] OLE PACE MD [facility] 03-03-2024 13:44-0400 Systolic Blood Pressure Non-Invasive 139 mm[Hg] OLE PACE MD [address] [place] [address] 03-03-2024 13:40-0400 Diastolic Blood Pressure Non-Invasive 93 mm[Hg] OLE PACE MD [facility] 03-03-2024 13:40-0400 Heart rate 86 /min OLE PACE MD [address] [place] [address] 03-03-2024 13:40-0400 Respiratory Rate - Anes 14 br/min OLE PACE MD [facility] 03-03-2024 13:40-0400 Systolic Blood Pressure Non-Invasive 122 mm[Hg] OLE PACE MD [address] 03-03-2024 13:35-0400 Heart rate 78 /min OLE PACE MD [address] [place] [address] 03-03-2024 13:35-0400 Respiratory Rate - Anes 20 br/min OLE PACE MD [facility] 03-03-2024 11:18-0400 Body height 167.6 cm OLE PACE MD [address] [place] [address] 03-03-2024 11:18-0400 Body temperature 98.96 [degF] OLE PACE MD [address] [place] [address] 03-03-2024 11:18-0400 Body weight 59.5 kg OLE PACE MD [address] [place] [address] 03-03-2024 11:18-0400 Heart rate 64 /min OLE PACE MD [address] [place] [address] 03-03-2024 11:18-0400 Respiratory rate 16 /min OLE PACE MD [address] [place] [address] 01-21-2024 15:05-0400 Body temperature 97.34 [degF] OLE PACE MD [address] [place] [address] 01-21-2024 15:05-0400 Diastolic blood pressure 81 mm[Hg] OLE PACE MD [address] [place] [address] 01-21-2024 15:05-0400 Heart rate 84 /min OLE PACE MD [facility] 01-21-2024 15:05-0400 Respiratory rate 16 /min OLE PACE MD [facility] 01-21-2024 15:05-0400 Systolic blood pressure 118 mm[Hg] OLE PACE MD [facility] 01-21-2024 13:53-0400 Body temperature 97.7 [degF] OLE PACE MD [facility] 01-21-2024 13:53-0400 Diastolic Blood Pressure Non-Invasive 85 mm[Hg] OLE PACE MD [facility] 01-21-2024 13:53-0400 Heart rate 71 /min OLE PACE MD [address] [place] [address] 01-21-2024 13:53-0400 Respiratory rate 16 /min OLE PACE MD [facility] 01-21-2024 13:53-0400 Systolic Blood Pressure Non-Invasive 122 mm[Hg] OLE PACE MD [facility] 01-21-2024 13:38-0400 Diastolic Blood Pressure Non-Invasive 89 mm[Hg] OLE PACE MD [facility] 01-21-2024 13:38-0400 Systolic Blood Pressure Non-Invasive 122 mm[Hg] OLE PACE MD [facility] 01-21-2024 13:35-0400 Diastolic Blood Pressure Non-Invasive 80 mm[Hg] OLE PACE MD [facility] 01-21-2024 13:35-0400 Heart rate 89 /min OLE PACE MD [facility] 01-21-2024 13:35-0400 Respiratory Rate - Anes 13 br/min OLE PACE MD [facility] 01-21-2024 13:35-0400 Systolic Blood Pressure Non-Invasive 104 mm[Hg] OLE PACE MD [facility] 01-21-2024 13:30-0400 Heart rate 82 /min OLE PACE MD [facility] 01-21-2024 13:30-0400 Respiratory Rate - Anes 11 br/min OLE PACE MD [facility] 01-21-2024 13:25-0400 Heart rate 82 /min OLE PACE MD [facility] 01-21-2024 13:25-0400 Respiratory Rate - Anes 12 br/min OLE PACE MD [facility] 01-21-2024 11:50-0400 Body height 167.6 cm OLE PACE MD [facility] 01-21-2024 11:50-0400 Body temperature 98.42 [degF] OLE PACE MD [facility] 01-21-2024 11:50-0400 Body weight 58.2 kg OLE PACE MD [facility] 01-21-2024 11:50-0400 Heart rate 87 /min OLE PACE MD [facility] 01-21-2024 11:50-0400 Respiratory rate 16 /min OLE PACE MD [facility] 12-03-2023 13:39-0500 Body temperature 96.8 [degF] BRITTNI LU [employer] [facility] 12-03-2023 13:39-0500 Diastolic blood pressure 95 mm[Hg] BRITTNI LU [employer] [facility] 12-03-2023 13:39-0500 Heart rate 51 /min BRITTNI LU [employer] [facility] 12-03-2023 13:39-0500 Respiratory rate 16 /min BRITTNI POPEDEZ [employer] [facility] 12-03-2023 13:39-0500 Systolic blood pressure 141 mm[Hg] BRITTNI LU [employer] [facility] 12-03-2023 12:10-0500 Body temperature 97.34 [degF] BRITTNI POPEDEZ [employer] [facility] 12-03-2023 12:10-0500 Diastolic Blood Pressure Non-Invasive 88 mm[Hg] BRITTNI LU [employer] [facility] 12-03-2023 12:10-0500 Heart rate 69 /min BRITTNI LU [employer] [facility] 12-03-2023 12:10-0500 Respiratory rate 16 /min BRITTNI POPEDEZ [employer] [facility] 12-03-2023 12:10-0500 Systolic Blood Pressure Non-Invasive 134 mm[Hg] BRITTNI POPEDEZ [employer] [facility] 12-03-2023 11:50-0500 Respiratory Rate - Anes 11 br/min BRITTNI POPEDEZ [employer] [facility] 12-03-2023 11:48-0500 Diastolic Blood Pressure Non-Invasive 83 mm[Hg] BRITTNI POPEDEZ [employer] [facility] 12-03-2023 11:48-0500 Systolic Blood Pressure Non-Invasive 120 mm[Hg] BRITTNI LU [employer] [facility] 12-03-2023 11:45-0500 Body temperature 96.8 [degF] BRITTNI LU [employer] [facility] 12-03-2023 11:45-0500 Diastolic Blood Pressure Non-Invasive 80 mm[Hg] BRITTNI LU [employer]IC [employer] [facility] 12-03-2023 11:45-0500 Heart rate 71 /min BRITTNI LU [employer] [facility] 12-03-2023 11:45-0500 Respiratory Rate - Anes 17 br/min BRITTNI POPEDEZ [employer] [facility] 12-03-2023 11:45-0500 Systolic Blood Pressure Non-Invasive 117 mm[Hg] BRITTNI POPEDEZ [employer] [facility] 12-03-2023 11:40-0500 Body temperature 96.8 [degF] BRITTNI LU [employer] [facility] 12-03-2023 11:40-0500 Heart rate 76 /min BRITTNI POPEDEZ [employer] [facility] 12-03-2023 11:40-0500 Respiratory Rate - Anes 20 br/min BRITTNI POPEDEZ [employer] [facility] 12-03-2023 11:35-0500 Body temperature 96.8 [degF] BRITTNI POPEDEZ [employer] [facility] 12-03-2023 11:35-0500 Heart rate 76 /min BRITTNI POPEDEZ [employer] [facility] 12-03-2023 09:41-0500 Body height 167.6 cm BRITTNI POPEDEZ [employer] [facility] 12-03-2023 09:41-0500 Body temperature 97.52 [degF] BRITTNI LU [employer] [facility] 12-03-2023 09:41-0500 Body weight 58.6 kg BRITTNI POPEDEZ [employer] [facility] 12-03-2023 09:41-0500 Heart rate 78 /min BRITTNI LU [employer] [facility] 12-03-2023 09:41-0500 Respiratory rate 18 /min BRITTNI LU [employer] [facility] 10-22-2023 16:30-0500 Body temperature 96.98 [degF] BRITTNI LU [employer] [facility] 10-22-2023 16:30-0500 Diastolic Blood Pressure Non-Invasive 81 mm[Hg] BRITTNI LU [employer] [facility] 10-22-2023 16:30-0500 Heart rate 72 /min BRITTNI LU [employer] [facility] 10-22-2023 16:30-0500 Respiratory rate 16 /min BRITTNI LU [employer] [facility] 10-22-2023 16:30-0500 Systolic Blood Pressure Non-Invasive 115 mm[Hg] BRITTNI LU [employer] [facility] 10-22-2023 16:15-0500 Body temperature 97.34 [degF] BRITTNI LU [employer] [facility] 10-22-2023 16:15-0500 Diastolic Blood Pressure Non-Invasive 76 mm[Hg] BRITTNI LU [employer] [facility] 10-22-2023 16:15-0500 Respiratory rate 16 /min BRITTNI LU [employer] [facility] 10-22-2023 16:15-0500 Systolic Blood Pressure Non-Invasive 107 mm[Hg] BRITTNI LU [employer]OLIC [employer] [facility] 10-22-2023 16:10-0500 Diastolic Blood Pressure Non-Invasive 76 mm[Hg] BRITTNI LU CATHOLIC [employer] [facility] 10-22-2023 16:10-0500 Heart rate 52 /min BRITTNI LU [employer] [facility] 10-22-2023 16:10-0500 Mean blood pressure 87 mm[Hg] BRITTNI LU [employer]IC [employer] [facility] 10-22-2023 16:10-0500 Systolic Blood Pressure Non-Invasive 107 mm[Hg] BRITTNI LU [employer] [facility] 10-22-2023 15:51-0500 Heart rate 49 /min BRITTNI LU [employer] [facility] 10-22-2023 15:51-0500 Respiratory rate 16 /min BRITTNI POPEDEZ [employer] [facility] 10-22-2023 15:35-0500 Heart rate 50 /min BRITTNI LU [employer] [facility] 10-22-2023 15:18-0500 Mean blood pressure 111 mm[Hg] BRITTNI LU C[employer]OLIC [employer] [facility] 10-22-2023 15:05-0500 Body temperature 97.34 [degF] BRITTNI POPEDEZ [employer] [facility] 10-22-2023 10:16-0500 Body height 167.6 cm BRITTNI POPEDEZ [employer] [facility] 10-22-2023 10:16-0500 Body weight 61.4 kg BRITTNI LU [employer] [facility] 10-22-2023 10:16-0500 Heart rate 76 /min BRITTNI LU [employer] [facility] 07-24-2023 16:14-0400 Body temperature 97.16 [degF] FLIP MARTIN MD [facility] 07-24-2023 16:14-0400 Diastolic Blood Pressure Non-Invasive 82 1 FLIP MARTIN MD [facility] 07-24-2023 16:14-0400 Heart rate 65 /min FLIP MARTIN MD [facility] 07-24-2023 16:14-0400 Respiratory rate 16 /min FLIP MARTIN MD [facility] 07-24-2023 16:14-0400 Systolic Blood Pressure Non-Invasive 109 1 FLIP MARTIN MD [facility] 07-24-2023 16:00-0400 Body temperature 97.52 [degF] FLIP MARTIN MD [facility] 07-24-2023 16:00-0400 Heart rate 81 /min FLIP MARTIN MD [facility] 07-24-2023 16:00-0400 systolic 108 mm[Hg] FLIP MARTIN MD [facility] 07-24-2023 15:45-0400 Diastolic Blood Pressure Non-Invasive 74 1 FLIP MARTIN MD [facility] 07-24-2023 15:45-0400 Heart rate 85 /min FLIP MARTIN MD [facility] 07-24-2023 15:45-0400 Mean blood pressure 84 mm[Hg] FLIP MARTIN MD [facility] 07-24-2023 15:45-0400 Respiratory rate 16 /min FLIP MARTIN MD [facility] 07-24-2023 15:45-0400 Systolic Blood Pressure Non-Invasive 106 1 FLIP MARTIN MD [facility] 07-24-2023 15:30-0400 diastolic 87 mm[Hg] FLIP MARTIN MD [facility] 07-24-2023 15:30-0400 Heart rate 78 /min FLIP MARTIN MD [facility] 07-24-2023 15:00-0400 Mean blood pressure 92 mm[Hg] FLIP MARTIN MD [address] 07-24-2023 14:34-0400 Mean blood pressure 114 mm[Hg] FLIP MARTIN MD [address] [place] [address] 07-24-2023 14:00-0400 Body temperature 97.34 [degF] FLIP MARTIN MD [address] 07-24-2023 13:55-0400 Respiratory Rate - Anes 17 br/min FLIP MARTIN MD [facility] 07-24-2023 13:50-0400 Body temperature 93.88 [degF] FLIP MARTIN MD [address] 07-24-2023 13:50-0400 Respiratory Rate - Anes 14 br/min FLIP MARTIN MD [facility] 07-24-2023 13:45-0400 Body temperature 93.9 [degF] FLIP MARTIN MD [facility] 07-24-2023 13:45-0400 Respiratory Rate - Anes 16 br/min FLIP MARTIN MD [facility] 07-24-2023 13:40-0400 Body temperature 93.87 [degF] FLIP MARTIN MD [facility] 07-24-2023 10:08-0400 Body height 167.6 cm FLIP MARTIN MD [facility] 07-24-2023 10:08-0400 Body weight 67.8 kg FLIP MARTIN MD [facility] 07-24-2023 10:08-0400 Heart rate 100 /min FLIP MARTIN MD [facility] 07-16-2023 09:45-0400 Body temperature 97.88 [degF] FLIP MARTIN MD [facility] 07-16-2023 09:45-0400 Diastolic Blood Pressure Non-Invasive 81 1 FLIP MARTIN MD [facility] 07-16-2023 09:45-0400 Heart rate 103 /min FLIP MARTIN MD [facility] 07-16-2023 09:45-0400 Reason For Taking VItal Signs FLIP MARTIN MD [facility] 07-16-2023 09:45-0400 Respiratory rate 16 /min FLIP MARTIN MD [facility] 07-16-2023 09:45-0400 Systolic Blood Pressure Non-Invasive 107 1 FLIP MARTIN MD [facility] 07-16-2023 06:25-0400 Body temperature 98.42 [degF] FLIP MARTIN MD [facility] 07-16-2023 06:25-0400 Diastolic Blood Pressure Non-Invasive 77 1 FLIP MARTIN MD [facility] 07-16-2023 06:25-0400 Heart rate 106 /min FLIP MARTIN MD [facility] 07-16-2023 06:25-0400 Reason For Taking VItal Signs FLIP MARTIN MD [facility] 07-16-2023 06:25-0400 Respiratory rate 16 /min FLIP MARTIN MD [facility] 07-16-2023 06:25-0400 Systolic Blood Pressure Non-Invasive 110 1 FLIP MARTIN MD [facility] 07-16-2023 02:07-0400 Body temperature 98.6 [degF] FLIP MARTIN MD [facility] 07-16-2023 02:07-0400 Diastolic Blood Pressure Non-Invasive 81 1 FLIP MARTIN MD [facility] 07-16-2023 02:07-0400 Heart rate 97 /min FLIP MARTIN MD [facility] 07-16-2023 02:07-0400 Systolic Blood Pressure Non-Invasive 108 1 FLIP MARTIN MD [facility] 07-15-2023 21:54-0400 Respiratory rate 18 /min FLIP MARTIN MD [facility] 07-15-2023 15:00-0400 Reason For Taking VItal Signs FLIP MATRIN MD [facility] 07-15-2023 14:00-0400 Blood Pressure Cuff Size FLIP MARTIN MD [facility] 07-15-2023 14:00-0400 Blood Pressure Location FLIP MARTIN MD [facility] 07-15-2023 14:00-0400 Blood Pressure Method FLIP MARTIN MD [facility] 07-14-2023 22:31-0400 Blood Pressure Cuff Size FLIP MARTIN MD [facility] 07-14-2023 22:31-0400 Blood Pressure Location FLIP MARTIN MD [facility] 07-14-2023 22:31-0400 Blood Pressure Method FLIP MARTIN MD [facility] 07-14-2023 14:39-0400 Blood Pressure Cuff Size FLIP MARTIN MD [facility] 07-14-2023 14:39-0400 Blood Pressure Location FLIP MARTIN MD [facility] 07-14-2023 14:39-0400 Blood Pressure Method FLIP MARTIN MD [facility] 07-09-2023 19:11-0400 Heart rate 88 /min FLIP MARTIN MD [address] [place] [address] 07-09-2023 14:26-0400 Heart rate 68 /min FLIP MARTIN MD [address] [place] [address] 07-09-2023 13:50-0400 Heart rate 88 /min FLIP MARTIN MD [address] [place] [address] 07-09-2023 07:02-0400 Body height 167.6 cm FLIP MARTIN MD [facility] 07-09-2023 07:02-0400 Body weight 62.8 kg FLIP MARTIN MD [address] 07-09-2023 07:02-0400 Body weight 22.36 kg/m2 FLIP MARTIN MD [facility] 07-08-2023 20:24-0400 Body weight 62.8 kg FLIP MARTIN MD [facility] 05-07-2023 14:50-0400 Body temperature 97.88 [degF] FLIP MARTIN MD [facility] 05-07-2023 14:50-0400 Diastolic Blood Pressure Non-Invasive 87 1 FLIP MARTIN MD [facility] 05-07-2023 14:50-0400 Heart rate 90 /min FLIP MARTIN MD [facility] 05-07-2023 14:50-0400 Respiratory rate 16 /min FLIP MARTIN MD [facility] 05-07-2023 14:50-0400 Systolic Blood Pressure Non-Invasive 119 1 FLIP MARTIN MD [facility] 05-07-2023 09:41-0400 Body temperature 98.42 [degF] FLIP MARTIN MD [facility] 05-07-2023 09:41-0400 Diastolic Blood Pressure Non-Invasive 90 1 FLIP MARTIN MD [facility] 05-07-2023 09:41-0400 Heart rate 83 /min FLIP MARTIN MD [facility] 05-07-2023 09:41-0400 Respiratory rate 16 /min FLIP MARTIN MD [facility] 05-07-2023 09:41-0400 Systolic Blood Pressure Non-Invasive 148 1 FLIP MARTIN MD [facility] 05-07-2023 06:22-0400 Body temperature 98.24 [degF] FLIP MARTIN MD [facility] 05-07-2023 06:22-0400 Diastolic Blood Pressure Non-Invasive 74 1 FLIP MARTIN MD [facility] 05-07-2023 06:22-0400 Heart rate 81 /min FLIP MARTIN MD [facility] 05-07-2023 06:22-0400 Respiratory rate 16 /min FLIP MARTIN MD [facility] 05-07-2023 06:22-0400 Systolic Blood Pressure Non-Invasive 109 1 FLIP MARTIN MD [facility] 05-04-2023 15:52-0400 Blood Pressure Cuff Size FLIP MARTIN MD [facility] 05-04-2023 15:52-0400 Blood Pressure Location FLIP MARTIN MD [facility] 05-04-2023 15:52-0400 Blood Pressure Method FLIP MARTIN MD [facility] 05-04-2023 03:44-0400 Reason For Taking VItal Signs FLIP MARTIN MD [facility] 05-03-2023 23:02-0400 Reason For Taking VItal Signs FLIP MARTIN MD [facility] 05-03-2023 18:07-0400 Reason For Taking VItal Signs FLIP MARTIN MD [facility] 04-30-2023 18:27-0400 Blood Pressure Cuff Size FLIP MARTIN MD [facility] 04-30-2023 18:27-0400 Blood Pressure Location FLIP MARTIN MD [facility] 04-30-2023 18:27-0400 Blood Pressure Method FLIP MARTIN MD [facility] 04-30-2023 18:27-0400 Heart rate 79 /min FLIP MARTIN MD [facility] 04-30-2023 14:28-0400 Blood Pressure Cuff Size FLIP MARTIN MD [facility] 04-30-2023 14:28-0400 Heart rate 83 /min FLIP MARTIN MD [facility] 04-30-2023 10:52-0400 Heart rate 90 /min FLIP MARTIN MD [facility] 04-29-2023 11:30-0400 Respiratory Rate - Anes 18 br/min FLIP MARTIN MD [facility] 04-29-2023 10:40-0400 Heart rate 72 /min FLIP MARTIN MD [facility] 04-29-2023 10:25-0400 Heart rate 73 /min FLIP MARTIN MD [facility] 04-29-2023 10:20-0400 Heart rate 74 /min FLIP MARTIN MD [facility] 04-28-2023 13:10-0400 Body height 167 cm FLIP MARTIN MD [facility] 04-28-2023 13:10-0400 Body weight 63.9 kg FLIP MARTIN MD [facility] 04-28-2023 13:10-0400 Body weight 22.91 kg/m2 FLIP MARTIN MD [facility] 04-28-2023 01:00-0400 Mean blood pressure 106 mm[Hg] FLIP MARTIN MD [facility] 04-28-2023 00:45-0400 Mean blood pressure 113 mm[Hg] FLIP MARTIN MD [facility] 04-28-2023 00:30-0400 Mean blood pressure 110 mm[Hg] FLIP MARTIN MD [facility] 04-27-2023 16:11-0400 Body weight 63.9 kg FLIP MATRIN MD [facility] 03-05-2023 16:12-0400 Body temperature 98.6 [degF] FLIP MARTIN MD [facility] 03-05-2023 16:12-0400 Diastolic Blood Pressure Non-Invasive 80 1 FLIP MARTIN MD [facility] 03-05-2023 16:12-0400 Heart rate 87 /min FLIP MARTIN MD [facility] 03-05-2023 16:12-0400 Respiratory rate 16 /min FLIP MARTIN MD [facility] 03-05-2023 16:12-0400 Systolic Blood Pressure Non-Invasive 108 1 FLIP MARTIN MD [facility] 03-05-2023 07:05-0400 Body temperature 97.88 [degF] FLIP MARTIN MD [facility] 03-05-2023 07:05-0400 Diastolic Blood Pressure Non-Invasive 68 1 FLIP MARTIN MD [facility] 03-05-2023 07:05-0400 Heart rate 96 /min FLIP MARTIN MD [facility] 03-05-2023 07:05-0400 Respiratory rate 16 /min FLIP MARTIN MD [facility] 03-05-2023 07:05-0400 Systolic Blood Pressure Non-Invasive 99 1 FLIP MARTIN MD [facility] 03-04-2023 21:26-0400 Body temperature 98.42 [degF] FLIP MARTIN MD [facility] 03-04-2023 21:26-0400 Diastolic Blood Pressure Non-Invasive 88 1 FLIP MARTIN MD [facility] 03-04-2023 21:26-0400 Heart rate 93 /min FLIP MARTIN MD [facility] 03-04-2023 21:26-0400 Reason For Taking VItal Signs FLIP MARTIN MD [facility] 03-04-2023 21:26-0400 Respiratory rate 18 /min FLIP MARTIN MD [facility] 03-04-2023 21:26-0400 Systolic Blood Pressure Non-Invasive 122 1 FLIP MARTIN MD [facility] 03-03-2023 21:35-0400 Reason For Taking VItal Signs FLIP MARTIN MD [facility] 03-01-2023 20:41-0400 Reason For Taking VItal Signs FLIP MARTIN MD [facility] 03-01-2023 08:57-0400 Heart rate 68 /min FLIP MARTIN MD [facility] 03-01-2023 04:50-0400 Blood Pressure Location FLIP MARTIN MD [facility] 03-01-2023 04:50-0400 Blood Pressure Method FLIP MARTIN MD [facility] 02-23-2023 21:09-0400 Body height 167.6 cm FLIP MARTIN MD [facility] 02-23-2023 21:09-0400 Body weight 55.7 kg FLIP MARTIN MD [facility] 02-23-2023 21:09-0400 Body weight 19.83 kg/m2 FILP MARTIN MD [facility] 02-23-2023 11:58-0400 Body temperature 97.7 [degF] FLIP MARTIN MD [facility] 02-23-2023 11:58-0400 Body weight 55.7 kg FLIP MARTIN MD [facility] 02-17-2023 11:08-0400 Diastolic Blood Pressure Non-Invasive 77 1 BRITTNI LU [employer]ATH[employer] [facility] 02-17-2023 11:08-0400 Heart rate 85 /min BRITTNI LU [employer] [facility] 02-17-2023 11:08-0400 Respiratory rate 16 /min BRITTNI LU [employer] [facility] 02-17-2023 11:08-0400 Systolic Blood Pressure Non-Invasive 119 1 BRITTNI LU [employer] [facility] 02-17-2023 10:50-0400 Diastolic Blood Pressure Non-Invasive 83 1 BRITTNI LU [employer] [facility] 02-17-2023 10:50-0400 Heart rate 78 /min BRITTNI LU [employer] [facility] 02-17-2023 10:50-0400 Respiratory rate 16 /min BRITTNI POPEDEZ [employer] [facility] 02-17-2023 10:50-0400 Systolic Blood Pressure Non-Invasive 137 1 BRITTNI LU [employer] [facility] 02-17-2023 10:35-0400 Diastolic Blood Pressure Non-Invasive 87 1 BRITTNI POPEDEZ [employer] [facility] 02-17-2023 10:35-0400 Heart rate 84 /min BRITTNI LU [employer] [facility] 02-17-2023 10:35-0400 Respiratory rate 16 /min BRITTNI LU [employer] [facility] 02-17-2023 10:35-0400 Systolic Blood Pressure Non-Invasive 128 1 BRITTNI POPEDEZ [employer] [facility] 02-17-2023 09:02-0400 Blood Pressure Cuff Size BRITTNI LU [employer] [facility] 02-17-2023 09:02-0400 Blood Pressure Location BRITTNI POPEDEZ [employer] [facility] 02-17-2023 09:02-0400 Blood Pressure Method BRITTNI LU [employer] [facility] 02-17-2023 09:02-0400 Body height 167.6 cm BRITTNI LU [employer] [facility] 02-17-2023 09:02-0400 Body temperature 97.88 [degF] BRITTNI LU [employer] [facility] 02-17-2023 09:02-0400 Body weight 50 kg BRITTNI LU [employer] [facility] 02-17-2023 09:02-0400 Body weight 17.8 kg/m2 BRITTNI LU [employer] [facility] 02-17-2023 09:02-0400 Heart rate 94 /min BRITTNI LU [employer] [facility] 01-06-2023 12:50-0500 Body temperature 98.06 [degF] FLIP MARTIN MD [facility] 01-06-2023 12:50-0500 Diastolic Blood Pressure Non-Invasive 92 1 FLIP MARTIN MD [facility] 01-06-2023 12:50-0500 Heart rate 73 /min FLIP MARTIN MD [facility] 01-06-2023 12:50-0500 Reason For Taking VItal Signs FLIP MARTIN MD [facility] 01-06-2023 12:50-0500 Respiratory rate 16 /min FLIP MARTIN MD [facility] 01-06-2023 12:50-0500 Systolic Blood Pressure Non-Invasive 137 1 FLIP MARTIN MD [facility] 01-06-2023 07:55-0500 Body temperature 98.06 [degF] FLIP MARTIN MD [facility] 01-06-2023 07:55-0500 Diastolic Blood Pressure Non-Invasive 87 1 FLIP MARTIN MD [facility] 01-06-2023 07:55-0500 Heart rate 64 /min FLIP MARTIN MD [facility] 01-06-2023 07:55-0500 Reason For Taking VItal Signs FLIP MARTIN MD [facility] 01-06-2023 07:55-0500 Respiratory rate 16 /min FLIP MARTIN MD [facility] 01-06-2023 07:55-0500 Systolic Blood Pressure Non-Invasive 121 1 FLIP MATRIN MD [facility] 01-06-2023 07:53-0500 Reason For Taking VItal Signs FLIP MARTIN MD [facility] 01-06-2023 04:04-0500 Body temperature 97.88 [degF] FLIP MARTIN MD [facility] 01-06-2023 04:04-0500 Diastolic Blood Pressure Non-Invasive 73 1 FLIP MARTIN MD [facility] 01-06-2023 04:04-0500 Heart rate 68 /min FLIP MARTIN MD [facility] 01-06-2023 04:04-0500 Respiratory rate 16 /min FLIP MARTIN MD [facility] 01-06-2023 04:04-0500 Systolic Blood Pressure Non-Invasive 109 1 FLIP MARTIN MD [facility] 01-05-2023 23:23-0500 Heart rate 80 /min FLIP MARTIN MD [facility] 01-05-2023 04:12-0500 Blood Pressure Cuff Size FLIP MARTIN MD [facility] 01-05-2023 04:12-0500 Blood Pressure Location FLIP MARTIN MD [facility] 01-05-2023 04:12-0500 Blood Pressure Method FLIP MARTIN MD [facility] 01-05-2023 00:07-0500 Blood Pressure Cuff Size FLIP MARTIN MD [facility] 01-05-2023 00:07-0500 Blood Pressure Location FLIP MARTIN MD [facility] 01-05-2023 00:07-0500 Blood Pressure Method FLIP MARTIN MD [address] [place] [address] 01-04-2023 20:20-0500 Blood Pressure Method FLIP MARTIN MD [address] [place] [address] 01-02-2023 15:45-0500 Heart rate 97 /min FLIP MARTIN MD [address] [place] [address] 01-02-2023 15:40-0500 Heart rate 100 /min FLIP MARTIN MD [address] [place] [address] 01-02-2023 15:35-0500 Heart rate 90 /min FLIP MARTIN MD [facility] 01-01-2023 16:31-0500 Body height 167.6 cm FLIP MARTIN MD [address] [place] [address] 01-01-2023 16:31-0500 Body weight 47.7 kg FLIP MARTIN MD [facility] 01-01-2023 16:31-0500 Body weight 16.98 kg/m2 FLIP MARTIN MD [facility] 01-01-2023 16:08-0500 Body temperature 97.88 [degF] FLIP MARTIN MD [facility] 01-01-2023 16:08-0500 Diastolic Blood Pressure Non-Invasive 91 1 FLIP MARTIN MD [facility] 01-01-2023 16:08-0500 Heart rate 72 /min FLIP MARTIN MD [facility] 01-01-2023 16:08-0500 Respiratory rate 16 /min FLIP MARTIN MD [facility] 01-01-2023 16:08-0500 Systolic Blood Pressure Non-Invasive 129 1 FLIP MARTIN MD [facility] 01-01-2023 15:22-0500 Diastolic Blood Pressure Non-Invasive 89 1 FLIP MARTIN MD [facility] 01-01-2023 15:22-0500 Heart rate 50 /min FLIP MARTIN MD [facility] 01-01-2023 15:22-0500 Respiratory rate 16 /min FLIP MARTIN MD [facility] 01-01-2023 15:22-0500 Systolic Blood Pressure Non-Invasive 121 1 FLIP MARTIN MD [facility] 01-01-2023 13:37-0500 Body height 167.6 cm FLIP MARTIN MD [facility] 01-01-2023 13:37-0500 Respiratory rate 18 /min FLIP MARTIN MD [facility] 01-01-2023 13:31-0500 Body temperature 97.88 [degF] FLIP MARTIN MD [facility] 01-01-2023 13:31-0500 Diastolic Blood Pressure Non-Invasive 106 1 FLIP MARTIN MD [facility] 01-01-2023 13:31-0500 Heart rate 62 /min FLIP MARTIN MD [facility] 01-01-2023 13:31-0500 Systolic Blood Pressure Non-Invasive 137 1 FLIP MARTIN MD [facility] 11-15-2022 13:45-0500 Diastolic Blood Pressure Non-Invasive 60 1 BRITTNI LU [employer] [facility] 11-15-2022 13:45-0500 Heart rate 63 /min BRITTNI LU [employer] [facility] 11-15-2022 13:45-0500 Respiratory rate 16 /min BRITTNI LU [employer] [facility] 11-15-2022 13:45-0500 Systolic Blood Pressure Non-Invasive 125 1 BRITTNI LU [employer] [facility] 11-15-2022 13:30-0500 Diastolic Blood Pressure Non-Invasive 95 1 BRITTNI POPEDEZ [employer] [facility] 11-15-2022 13:30-0500 Heart rate 60 /min BRITTNI LU [employer] [facility] 11-15-2022 13:30-0500 Respiratory rate 14 /min BRITTNI POPEDEZ [employer] [facility] 11-15-2022 13:30-0500 Systolic Blood Pressure Non-Invasive 132 1 BRITTNI POPEDEZ [employer] [facility] 11-15-2022 13:17-0500 Diastolic Blood Pressure Non-Invasive 84 1 BRITTNI POPEDEZ [employer] [facility] 11-15-2022 13:17-0500 Heart rate 67 /min BRITTNI PRATHERZ [employer] [facility] 11-15-2022 13:17-0500 Respiratory rate 14 /min BRITTNI LU [employer] [facility] 11-15-2022 13:17-0500 Systolic Blood Pressure Non-Invasive 136 1 BRITTNI LU [employer] [facility] 11-15-2022 12:35-0500 Heart rate 66 /min BRITTNI POPEDEZ [employer] [facility] 11-15-2022 12:25-0500 Heart rate 67 /min BRITTNI LU [employer] [facility] 11-15-2022 12:20-0500 Heart rate 72 /min BRITTNI LU [employer] [facility] 11-15-2022 09:52-0500 Blood Pressure Cuff Size BRITTNI LU [employer] [facility] 11-15-2022 09:52-0500 Blood Pressure Location BRITTNI LU [employer] [facility] 11-15-2022 09:52-0500 Blood Pressure Method BRITTNI LU [employer] [facility] 11-15-2022 09:52-0500 Body height 167.6 cm BRITTNI LU [employer] [facility] 11-15-2022 09:52-0500 Body temperature 98.24 [degF] BRITTNI LU [employer] [facility] 11-15-2022 09:52-0500 Body weight 50 kg BRITTNI LU [employer] [facility] 11-15-2022 09:52-0500 Body weight 17.8 kg/m2 BRITTNI LU [employer] [facility] 10-08-2022 14:35-0500 Diastolic Blood Pressure Non-Invasive 83 1 FLIP MARTIN MD [facility] 10-08-2022 14:35-0500 Heart rate 85 /min FLIP MARTIN MD [facility] 10-08-2022 14:35-0500 Reason For Taking VItal Signs FLIP MARTIN MD [facility] 10-08-2022 14:35-0500 Respiratory rate 16 /min FLIP MARTIN MD [facility] 10-08-2022 14:35-0500 Systolic Blood Pressure Non-Invasive 114 1 FLIP MARTIN MD [facility] 10-08-2022 07:30-0500 Body temperature 98.24 [degF] FLIP MARTIN MD [facility] 10-08-2022 07:30-0500 Diastolic Blood Pressure Non-Invasive 73 1 FLIP MARTIN MD [address] 10-08-2022 07:30-0500 Heart rate 81 /min FLIP MARTIN MD [address] [place] [address] 10-08-2022 07:30-0500 Reason For Taking VItal Signs FLIP MARTIN MD [address] [place] [address] 10-08-2022 07:30-0500 Respiratory rate 14 /min FLIP MARTIN MD [facility] 10-08-2022 07:30-0500 Systolic Blood Pressure Non-Invasive 99 1 FLIP MARTIN MD [facility] 10-07-2022 21:42-0500 Body temperature 98.24 [degF] FLIP MARTIN MD [facility] 10-07-2022 21:42-0500 Diastolic Blood Pressure Non-Invasive 69 1 FLIP MARTIN MD [facility] 10-07-2022 21:42-0500 Heart rate 86 /min FLIP MARTIN MD [facility] 10-07-2022 21:42-0500 Respiratory rate 16 /min FLIP MARTIN MD [facility] 10-07-2022 21:42-0500 Systolic Blood Pressure Non-Invasive 94 1 FLIP MARTIN MD [facility] 10-07-2022 15:38-0500 Body temperature 98.24 [degF] FLIP MARTIN MD [facility] 10-07-2022 15:38-0500 Reason For Taking VItal Signs FLIP MARTIN MD [facility] 10-05-2022 20:19-0500 Heart rate 102 /min FLIP MARTIN MD [facility] 10-05-2022 15:56-0500 Heart rate 74 /min FLIP MARTIN MD [facility] 10-05-2022 12:04-0500 Heart rate 79 /min FLIP MARTIN MD [facility] 10-01-2022 21:35-0500 Heart rate 62 /min FLIP MARTIN MD [facility] 09-30-2022 17:45-0500 Body height 167.6 cm FLIP MARTIN MD [facility] 09-30-2022 17:45-0500 Body weight 50.4 kg FLIP MARTIN MD [facility] 09-30-2022 17:45-0500 Body weight 17.94 kg/m2 FLIP MARTIN MD [facility] 09-30-2022 10:13-0500 Body weight 50.4 kg FLIP MARTIN MD [facility] 09-27-2022 15:45-0500 Body temperature 99.14 [degF] GUCCI ALEXANDRE MD [facility] 09-27-2022 15:45-0500 Body weight 50.2 kg GUCCI ALEXANDRE MD [facility] 09-27-2022 15:45-0500 Diastolic Blood Pressure Non-Invasive 108 1 GUCCI ALEXANDRE MD [facility] 09-27-2022 15:45-0500 Heart rate 122 /min GUCCI ALEXANDRE MD [facility] 09-27-2022 15:45-0500 Systolic Blood Pressure Non-Invasive 126 1 GUCCI ALEXANDRE MD [facility] 08-16-2022 13:01-0400 Body temperature 98.06 [degF] FLIP MARTIN MD [facility] 08-16-2022 13:01-0400 Diastolic blood pressure 75 mm[Hg] FLIP MARTIN MD [facility] 08-16-2022 13:01-0400 Heart rate 107 /min FLIP MARTIN MD [facility] 08-16-2022 13:01-0400 Reason For Taking VItal Signs FLIP MARTIN MD [facility] 08-16-2022 13:01-0400 Respiratory rate 16 /min FLIP MARTIN MD [facility] 08-16-2022 13:01-0400 Systolic blood pressure 102 mm[Hg] FLIP MARTIN MD [facility] [facility] 08-16-2022 07:18-0400 Body temperature 97.52 [degF] FLIP MARTIN MD [facility] 08-16-2022 07:18-0400 Diastolic blood pressure 88 mm[Hg] FLIP MARTIN MD [facility] 08-16-2022 07:18-0400 Heart rate 99 /min FLIP MARTIN MD [facility] 08-16-2022 07:18-0400 Reason For Taking VItal Signs FLIP MARTIN MD [facility] 08-16-2022 07:18-0400 Respiratory rate 16 /min FLIP MARTIN MD [facility] 08-16-2022 07:18-0400 Systolic blood pressure 131 mm[Hg] FLIP MARTIN MD [facility] 08-16-2022 04:44-0400 Body temperature 97.7 [degF] FLIP MARTIN MD [facility] 08-16-2022 04:44-0400 Diastolic blood pressure 82 mm[Hg] FLIP MARTIN MD [facility] 08-16-2022 04:44-0400 Heart rate 92 /min FLIP MARTIN MD [facility] 08-16-2022 04:44-0400 Respiratory rate 16 /min FLIP MARTIN MD [facility] 08-16-2022 04:44-0400 Systolic blood pressure 108 mm[Hg] FLIP MARTIN MD [facility] 08-15-2022 20:36-0400 Mean blood pressure 94 mm[Hg] FLIP MARTIN MD [facility] 08-15-2022 20:36-0400 Reason For Taking VItal Signs FLIP MARTIN MD [facility] 08-15-2022 08:42-0400 Heart rate 92 /min FLIP MARTIN MD [facility] 08-14-2022 13:15-0400 Heart rate 75 /min FLIP MARTIN MD [facility] 08-14-2022 13:15-0400 Mean blood pressure 104 mm[Hg] FLIP MARTIN MD [facility] 08-14-2022 13:05-0400 Heart rate 80 /min FLIP MARTIN MD [facility] 08-14-2022 13:05-0400 Mean blood pressure 104 mm[Hg] FLIP MARTIN MD [facility] 08-11-2022 03:14-0400 Heart rate 88 /min FLIP MARTIN MD [facility] 08-10-2022 23:33-0400 Heart rate 75 /min FLIP MARTIN MD [facility] 08-08-2022 16:51-0400 Body height 167.6 cm FLIP MARTIN MD [facility] 08-08-2022 16:51-0400 Body weight 52.5 kg FLIP MARTIN MD [facility] 08-08-2022 16:51-0400 Body weight 18.69 kg/m2 FLIP MARTIN MD [facility] 08-08-2022 16:05-0400 Diastolic blood pressure 87 mm[Hg] BRITTNI LU CATHOLIC PRIEST-ELECTRIC MOTOR TESTER [facility] 08-08-2022 16:05-0400 Heart rate 65 /min BRITTNI LU [employer]IE[employer]ELECTRIC MOTOR TESTER [facility] 08-08-2022 16:05-0400 Respiratory rate 18 /min BRITTNI LU CATHOLIC [employer]IEST[employer]ELECTRIC MOTOR TESTER [facility] 08-08-2022 16:05-0400 Systolic blood pressure 130 mm[Hg] BRITTNI LU CATHOLIC PRIEST[employer]ELECTRIC MOTOR TESTER [facility] 08-08-2022 14:27-0400 Body temperature 97.88 [degF] BRITTNI LU CATHOLIC PRIEST[employer]ELECTRIC MOTOR TESTER [facility] 08-08-2022 14:27-0400 Reason For Taking VItal Signs BRITTNI LU CATHOLIC PRIEST-ELECTRIC MOTOR TESTER [facility] 08-08-2022 13:43-0400 diastolic 87 mm[Hg] BRITTNI LU CATHOLIC PRIEST[employer]ELECTRIC MOTOR TESTER [facility] 08-08-2022 13:43-0400 Heart rate 71 /min BRITTNI LU CATHOLIC PRIEST[employer]ELECTRIC MOTOR TESTER [facility] 08-08-2022 13:43-0400 Respiratory rate 18 /min BRITTNI LU CATHOLIC PRIEST[employer]ELECTRIC MOTOR TESTER [facility] 08-08-2022 13:43-0400 systolic 126 mm[Hg] BRITTNI LU CATHOLIC PRIEST[employer]ELECTRIC MOTOR TESTER [facility] 07-04-2022 13:38-0400 Diastolic blood pressure 80 mm[Hg] BRITTNI LU CATHOLIC PRIEST-ELECTRIC MOTOR TESTER [facility] 07-04-2022 13:38-0400 Heart rate 77 /min BRITTNI LU CATHOLIC PRIEST[employer]ELECTRIC MOTOR TESTER [facility] 07-04-2022 13:38-0400 Mean blood pressure 91 mm[Hg] BRITTNI LU CATHOLIC PRIEST[employer]ELECTRIC MOTOR TESTER [facility] 07-04-2022 13:38-0400 Respiratory rate 18 /min BRITTNI LU CATHOLIC PRIEST-ELECTRIC MOTOR TESTER [facility] 07-04-2022 13:38-0400 Systolic blood pressure 113 mm[Hg] BRITTNI LU CATHOLIC PRIEST-ELECTRIC MOTOR TESTER [facility] 07-04-2022 13:20-0400 Diastolic blood pressure 85 mm[Hg] BRITTNI LU CATHOLIC PRIEST-ELECTRIC MOTOR TESTER [facility] 07-04-2022 13:20-0400 Heart rate 74 /min BRITTNI LU CATHOLIC PRIEST[employer]ELECTRIC MOTOR TESTER [facility] 07-04-2022 13:20-0400 Mean blood pressure 95 mm[Hg] BRITTNI LU CATHOLIC PRIEST-ELECTRIC MOTOR TESTER [facility] 07-04-2022 13:20-0400 Respiratory rate 16 /min BRITTNI LU CATHOLIC PRIEST[employer]ELECTRIC MOTOR TESTER [facility] 07-04-2022 13:20-0400 Systolic blood pressure 114 mm[Hg] BRITTNI LU CATHOLIC PRIEST-ELECTRIC MOTOR TESTER [facility] 07-04-2022 12:58-0400 Diastolic blood pressure 86 mm[Hg] BRITTNI POPEDEZ CATHOLIC PRIEST-ELECTRIC MOTOR TESTER [facility] 07-04-2022 12:58-0400 Heart rate 77 /min BRITTNI POPEDEZ CATHOLIC PRIEST-ELECTRIC MOTOR TESTER [facility] 07-04-2022 12:58-0400 Mean blood pressure 99 mm[Hg] BRITTNI POPEDEZ CATHOLIC PRIEST-ELECTRIC MOTOR TESTER [facility] 07-04-2022 12:58-0400 Respiratory rate 16 /min BRITTNI POPEDEZ CATHOLIC PRIEST-ELECTRIC MOTOR TESTER [facility] 07-04-2022 12:58-0400 Systolic blood pressure 124 mm[Hg] BRITTNI POPEDEZ CATHOLIC PRIEST-ELECTRIC MOTOR TESTER [facility] 07-04-2022 10:37-0400 Body height 167.6 cm BRITTNI POPEDEZ CATHOLIC PRIEST-ELECTRIC MOTOR TESTER [facility] 07-04-2022 10:37-0400 Body temperature 98.06 [degF] BRITTNI POPEDEZ CATHOLIC PRIEST-ELECTRIC MOTOR TESTER [facility] 07-04-2022 10:37-0400 Body weight 45.4 kg BRITTNI POPEDEZ CATHOLIC PRIEST-ELECTRIC MOTOR TESTER [facility] 07-04-2022 10:37-0400 Body weight 16.16 kg/m2 BRITTNI POPEDEZ CATHOLIC PRIEST-ELECTRIC MOTOR TESTER [facility] 07-04-2022 10:37-0400 diastolic 87 mm[Hg] BRITTNI LU CATHOLIC PRIEST-ELECTRIC MOTOR TESTER [facility] 07-04-2022 10:37-0400 Heart rate 88 /min BRITTNI POPEDEZ CATHOLIC PRIEST-ELECTRIC MOTOR TESTER [facility] 07-04-2022 10:37-0400 systolic 123 mm[Hg] BRITTNI LU CATHOLIC PRIEST[employer]ELECTRIC MOTOR TESTER [facility] 04-19-2022 16:12-0400 Body temperature 98.42 [degF] FLIP MARTIN MD [facility] 04-19-2022 16:12-0400 Diastolic blood pressure 88 mm[Hg] FLIP MARTIN MD [facility] 04-19-2022 16:12-0400 Heart rate 72 /min FLIP MARTIN MD [facility] 04-19-2022 16:12-0400 Reason For Taking VItal Signs FLIP MARTIN MD [facility] 04-19-2022 16:12-0400 Respiratory rate 16 /min FLIP MARTIN MD [facility] 04-19-2022 16:12-0400 Systolic blood pressure 125 mm[Hg] FLIP MARTIN MD [facility] 04-19-2022 12:04-0400 Body temperature 98.6 [degF] FLIP MARTIN MD [facility] 04-19-2022 12:04-0400 Diastolic blood pressure 100 mm[Hg] FLIP MARTIN MD [facility] 04-19-2022 12:04-0400 Heart rate 82 /min FLIP MARTIN MD [facility] 04-19-2022 12:04-0400 Reason For Taking VItal Signs FLIP MARTIN MD [facility] 04-19-2022 12:04-0400 Respiratory rate 16 /min FLIP MARTIN MD [facility] 04-19-2022 12:04-0400 Systolic blood pressure 133 mm[Hg] FLIP MARTIN MD [facility] 04-19-2022 08:19-0400 Body temperature 97.7 [degF] FLIP MARTIN MD [facility] 04-19-2022 08:19-0400 Diastolic blood pressure 87 mm[Hg] FLIP MARTIN MD [facility] 04-19-2022 08:19-0400 Heart rate 78 /min FLPI MARTIN MD [facility] 04-19-2022 08:19-0400 Reason For Taking VItal Signs FLIP MARTIN MD [facility] 04-19-2022 08:19-0400 Respiratory rate 16 /min FLIP MARTIN MD [facility] 04-19-2022 08:19-0400 Systolic blood pressure 123 mm[Hg] FLIP MARTIN MD [facility] 04-17-2022 13:37-0400 Mean blood pressure 109 mm[Hg] FLIP MARTIN MD [facility] 04-17-2022 08:19-0400 Mean blood pressure 88 mm[Hg] FLIP MARTIN MD [facility] 04-15-2022 21:40-0400 Mean blood pressure 106 mm[Hg] FLIP MARTIN MD [facility] 04-14-2022 22:09-0400 Body height 167.6 cm FLIP MARTIN MD [facility] 04-14-2022 22:09-0400 Body weight 45.4 kg FLIP MARTIN MD [facility] 04-14-2022 22:09-0400 Body weight 16.16 kg/m2 FLIP MARTIN MD [facility] 04-11-2022 15:18-0400 Diastolic blood pressure 96 mm[Hg] BRITTNI LU CATHOLIC PRIEST[employer]ELECTRIC MOTOR TESTER [facility] 04-11-2022 15:18-0400 Heart rate 72 /min BRITTNI LU CATHOLIC PRIEST[employer]ELECTRIC MOTOR TESTER [facility] 04-11-2022 15:18-0400 Respiratory rate 16 /min BRITTNI LU CATHOLIC PRIEST[employer]ELECTRIC MOTOR TESTER [facility] 04-11-2022 15:18-0400 Systolic blood pressure 144 mm[Hg] BRITTNI LU CATHOLIC PRIEST[employer]ELECTRIC MOTOR TESTER [facility] 04-11-2022 14:45-0400 Diastolic Blood Pressure NBP 87 1 BRITTNI LU CATHOLIC PRIEST-ELECTRIC MOTOR TESTER [facility] 04-11-2022 14:45-0400 Heart rate 69 /min BRITTNI LU CATHOLIC PRIEST-ELECTRIC MOTOR TESTER [facility] 04-11-2022 14:45-0400 Respiratory rate 14 /min BRITTNI LU CATHOLIC PRIEST-ELECTRIC MOTOR TESTER [facility] 04-11-2022 14:45-0400 Systolic Blood Pressure NBP 130 1 BRITTNI LU CATHOLIC PRIEST-ELECTRIC MOTOR TESTER [facility] 04-11-2022 14:30-0400 Diastolic Blood Pressure NBP 93 1 BRITTNI LU CATHOLIC PRIEST-ELECTRIC MOTOR TESTER [facility] 04-11-2022 14:30-0400 Heart rate 70 /min BRITTNI POPEDEZ CATHOLIC PRIEST-ELECTRIC MOTOR TESTER [facility] 04-11-2022 14:30-0400 Respiratory rate 14 /min BRITTNI LU CATHOLIC PRIEST[employer]ELECTRIC MOTOR TESTER [facility] 04-11-2022 14:30-0400 Systolic Blood Pressure NBP 126 1 BRITTNI LU CATHOLIC PRIEST[employer]ELECTRIC MOTOR TESTER [facility] 04-11-2022 14:15-0400 Diastolic blood pressure 97 mm[Hg] BRITTNI LU CATHOLIC PRIEST-ELECTRIC MOTOR TESTER [facility] 04-11-2022 14:15-0400 Heart rate 77 /min BRITTNI LU CATHOLIC PRIEST-ELECTRIC MOTOR TESTER [facility] 04-11-2022 14:15-0400 Mean blood pressure 112 mm[Hg] BRITTNI LU CATHOLIC PRIEST-ELECTRIC MOTOR TESTER [facility] 04-11-2022 14:15-0400 Systolic blood pressure 142 mm[Hg] BRITTNI LU CATHOLIC PRIEST-ELECTRIC MOTOR TESTER [facility] 04-11-2022 14:10-0400 Diastolic blood pressure 111 mm[Hg] BRITTNI LU CATHOLIC PRIEST-ELECTRIC MOTOR TESTER [facility] 04-11-2022 14:10-0400 Heart rate 76 /min BRITTNI LU CATHOLIC PRIEST-ELECTRIC MOTOR TESTER [facility] 04-11-2022 14:10-0400 Mean blood pressure 124 mm[Hg] BRITTNI LU CATHOLIC PRIEST-ELECTRIC MOTOR TESTER [facility] 04-11-2022 14:10-0400 Systolic blood pressure 150 mm[Hg] BRITTNI LU CATHOLIC PRIEST-ELECTRIC MOTOR TESTER [facility] 04-11-2022 14:05-0400 Heart rate 85 /min BRITTNI LU CATHOLIC PRIEST-ELECTRIC MOTOR TESTER [facility] 04-11-2022 14:05-0400 Mean blood pressure 96 mm[Hg] BRITTNI LU CATHOLIC PRIEST-ELECTRIC MOTOR TESTER [facility] 04-11-2022 13:05-0400 Body temperature 97.88 [degF] BRITTNI LU CATHOLIC PRIEST[employer]ELECTRIC MOTOR TESTER [facility] 03-26-2022 11:47-0400 Body height 167.6 cm ERI PATRICK CATHOLIC PRIEST-ELECTRIC MOTOR TESTER [facility] 03-26-2022 11:47-0400 Body temperature 98.06 [degF] ERI PATRICK CATHOLIC PRIEST-ELECTRIC MOTOR TESTER [facility] 03-26-2022 11:47-0400 Body weight 45.4 kg ERI PATRICK CATHOLIC PRIEST-ELECTRIC MOTOR TESTER [facility] 03-26-2022 11:47-0400 Body weight 16.16 kg/m2 ERI PATRICK CATHOLIC PRIEST-ELECTRIC MOTOR TESTER [facility] 03-26-2022 11:47-0400 diastolic 88 mm[Hg] ERI PATRICK CATHOLIC PRIEST-ELECTRIC MOTOR TESTER [facility] 03-26-2022 11:47-0400 Heart rate 76 /min ERI PATRICK CATHOLIC PRIEST-ELECTRIC MOTOR TESTER [facility] 03-26-2022 11:47-0400 Respiratory rate 18 /min ERI PATRICK CATHOLIC PRIEST-ELECTRIC MOTOR TESTER [facility] 03-26-2022 11:47-0400 systolic 132 mm[Hg] ERI PATRICK CATHOLIC PRIEST-ELECTRIC MOTOR TESTER [facility] 12-21-2021 10:38-0500 Body height 167.6 cm FLIP MARTIN MD [facility] 12-21-2021 10:38-0500 Body temperature 98.06 [degF] FLIP MARTIN MD [facility] 12-21-2021 10:38-0500 Body weight 47.7 kg FLIP MARTIN MD [facility] 12-21-2021 10:38-0500 Body weight 16.98 kg/m2 FLIP MARTIN MD [facility] 12-21-2021 10:38-0500 diastolic 101 mm[Hg] FLIP MARTIN MD [facility] 12-21-2021 10:38-0500 Heart rate 81 /min FLIP MARTIN MD [facility] 12-21-2021 10:38-0500 Respiratory rate 16 /min FLIP MARTIN MD [facility] 12-21-2021 10:38-0500 systolic 129 mm[Hg] FLIP MARTIN MD [facility] 07-14-2021 10:43-0400 Body temperature 98.42 [degF] Flip Martin [facility] 07-14-2021 10:43-0400 Diastolic blood pressure 83 mm[Hg] Flip Martin [facility] 07-14-2021 10:43-0400 Heart rate 68 /min Flip Martin [facility] 07-14-2021 10:43-0400 Respiratory rate 18 /min Flip Martin [facility] 07-14-2021 10:43-0400 SaO2% (BldA) [Mass fraction] 100 % Flip Martin [facility] 07-14-2021 10:43-0400 Systolic blood pressure 129 mm[Hg] Flip Martin [facility] 07-14-2021 07:44-0400 Body weight 47.7 kg Flip Martin [facility] Encounters Encounter Date Encounter Type Care Provider Facility Start: 06-03-2025 End: 06-04-2025 Emergency department patient visit Yeison Webber Facility:[facility] Start: 06-01-2025 End: 06-02-2025 Emergency department patient visit Dr. Jatin Garcia MD Work Phone: -Emergency Department Work Phone: Start: 06-01-2025 End: 06-01-2025 Emergency department patient visit [facility] Start: 05-27-2025 End: 05-30-2025 Evaluation and management of inpatient DR OLI HERRERA MD [facility] Start: 05-26-2025 End: 05-26-2025 Emergency department patient visit [facility] Start: 05-25-2025 End: 05-26-2025 Emergency department patient visit DR ARLEY MARIE DO [facility] Start: 05-17-2025 End: 05-17-2025 Telephone encounter Ben Fonseca MD Work Phone: [facility] Start: 05-11-2025 ambulatory PINA PANTOJA CATHOLIC PRIEST-ELECTRIC MOTOR TESTER Facility:A Start: 05-11-2025 End: 05-11-2025 ambulatory OLE PACE MD Facility:A Start: 05-08-2025 End: 05-09-2025 Emergency department patient visit JASKARAN MEDRANO MD [facility] Start: 05-04-2025 End: 05-07-2025 Emergency department patient visit OLE PACE MD Facility:A Start: 05-04-2025 End: 05-07-[address] RHIANNON ARTEAGA MD [facility] Start: 05-03-2025 End: 05-03-2025 Emergency department patient visit [facility] Start: 05-03-2025 End: 05-03-2025 Emergency department patient visit GUCCI ALEXANDRE MD [employer] [facility] Start: 05-02-2025 End: 05-03-2025 Emergency department patient visit GABBY ELENA [facility] Start: 04-29-2025 End: 04-29-2025 Emergency department patient visit GONZALEZ DO CARTER [facility] Start: 04-11-2025 End: 04-11-2025 ambulatory OLE PACE MD Facility:A Start: 04-11-2025 End: 04-11-2025 Patient encounter procedure LEONARDO PENA CATHOLIC PRIEST-ELECTRIC MOTOR TESTER [employer] [facility] Start: 04-09-2025 End: 04-09-2025 Emergency department patient visit Dr. Jatin Garcia MD Work Phone: -Emergency Department Work Phone: Start: 04-06-2025 End: 04-07-2025 Emergency department patient visit GONZALEZ SANDERS MD Facility:A Start: 04-06-2025 End: 04-07-2025 Observation BHUPENDRA GALVEZ DO [employer] [facility] Start: 04-05-2025 ambulatory PINA PANTOJA CATHOLIC PRIEST-ELECTRIC MOTOR TESTER Facility:A Start: 04-04-2025 End: 04-05-2025 Emergency department patient visit DR RHIANNON ARTEAGA MD Facility:A Start: 04-04-2025 End: 04-05-[address] RHIANNON ARTEAGA MD [employer] [facility] Start: 04-04-2025 ambulatory GONZALEZ SANDERS MD [facility] y:A Start: 04-03-2025 End: 04-03-2025 Emergency department patient visit CHRISTO GUDINO JUAAN [facility] Start: 04-01-2025 End: 04-01-2025 Emergency department patient visit GONZALEZ ABEBE [facility] Start: 03-30-2025 End: 03-30-2025 ambulatory GONZALEZ SANDERS MD Facility:A Start: 03-30-2025 End: 03-30-2025 Patient encounter procedure GONZALEZ SANDERS MD [facility] Start: 03-25-[address] MADELINE APARICIO MD [facility] ity:A Start: 03-23-2025 End: 03-23-2025 Emergency department patient visit [facility] Start: 03-15-2025 End: 03-15-2025 Emergency department patient visit GUCCI ALEXANDRE MD [employer] [facility] Start: 03-09-2025 End: 03-09-2025 Emergency department patient visit DELMAR MICHAEL [employer] [facility] Start: 03-08-2025 End: 03-08-2025 Emergency department patient visit [facility] Alan [facility] Start: 03-08-2025 End: 03-08-2025 ambulatory GONZALEZ SANDERS MD Facility:A Start: 03-08-2025 End: 03-08-2025 Patient encounter procedure GONZALEZ SANDERS MD [employer] [facility] Start: 03-07-2025 End: 03-07-2025 Emergency department patient visit ALICIA LORA [facility] Start: 03-05-2025 End: 03-06-2025 Emergency department patient visit GONZALEZ ABEBE [facility] Start: 02-16-2025 End: 02-16-2025 ambulatory OLE MONK MD Facility:A Start: 02-16-2025 End: 02-16-2025 SAME DAY STAY PINA PANTOJA CATHOLIC PRIEST[employer]ELECTRIC MOTOR TESTER [employer] [facility] Start: 02-14-2025 End: 02-14-2025 ambulatory OLE PACE MD Facility:A Start: 02-10-2025 End: 02-10-2025 Emergency department patient visit GONZALEZ GUDINO [facility] Start: 02-01-2025 ambulatory OLE PACE MD Faci lity:A Start: 01-29-2025 End: 01-29-2025 Emergency [facility] Start: 01-21-2025 End: 01-21-2025 Emergency department patient visit BEATRICE MCNAMARA [facility] Start: 12-22-2024 ambulatory OLE PACE MD Faci lity:A Start: 12-22-2024 End: 12-22-2024 ambulatory OLE PACE MD Facility:A Start: 12-22-2024 End: 12-22-2024 SAME DAY STAY NASRIN ISABEL MD [facility] Start: 12-13-2024 End: 12-13-2024 ambulatory OLE PACE MD Facility:A Start: 12-10-2024 End: 12-10-2024 Emergency department patient visit GONZALEZ GUDINO [facility] Start: 11-15-2024 End: 11-19-2024 ambulatory NASRIN ISABEL MD Facility:A Start: 11-15-2024 End: 11-15-2024 ambulatory NASRIN ISABEL MD Facility:A Start: 11-06-2024 End: 11-06-2024 Emergency department patient visit KORINA AGUILAR [facility] Start: 10-13-2024 End: 10-13-2024 ambulatory VON BACA MD Facility:A Start: 10-01-2024 ambulatory TADEO Julien cility:A Start: 09-28-2024 End: 09-28-2024 ambulatory OLE PACE MD Facility:A Start: 08-31-2024 End: 08-31-2024 Emergency department patient visit ALICIA LORA [facility] Start: 08-16-2024 End: 08-16-2024 ambulatory OLE PACE MD Facility:A Start: 08-11-2024 End: 08-11-2024 ambulatory NAYELI BRICE DO Facility:A Start: 08-11-2024 End: 08-11-2024 SAME DAY STAY NASRIN ISABEL MD [facility] Start: 08-06-2024 End: 08-06-2024 Admission to establishment NASRIN ISABEL MD [facility] Start: 08-06-2024 End: 08-06-2024 ambulatory OLE PACE MD Facility:A Start: 07-19-2024 End: 07-19-2024 ambulatory OLE PACE MD Facility:A Start: 07-10-2024 ambulatory FLIP LORA [facility] Start: 07-10-2024 End: 07-10-2024 Emergency department patient visit [facility] Start: 06-24-2024 End: 06-24-2024 Emergency department patient visit [facility] Start: 06-21-2024 End: 06-21-2024 ambulatory PROVIDER NOT SPECIFIED OTHER Facility:A Start: 06-10-2024 ambulatory PROVIDER NOT SPECIFIED OTHER Facility:A Start: 06-10-2024 ambulatory PROVIDER NOT SPECIFIED OTHER Facility:A Start: 06-09-2024 End: 06-09-2024 ambulatory VIRAL MANUEL MD Facility:A Start: 06-09-2024 End: 06-09-2024 SAME DAY STAY NASRIN ISABEL MD [facility] Start: 05-25-2024 ambulatory PROVIDER NOT SPECIFIED OTHER Facility:A Start: 05-24-2024 End: 05-24-2024 ambulatory PROVIDER NOT SPECIFIED OTHER Facility:A Start: 04-28-2024 End: 04-28-2024 ambulatory PROVIDER NOT SPECIFIED OTHER Facility:A Start: 04-14-2024 End: 04-14-2024 ambulatory DAVID SMITH MD Facility:A Start: 04-14-2024 End: 04-14-2024 SAME DAY STAY OLE PACE [facility] Start: 03-04-2024 End: 03-04-2024 Patient encounter procedure [facility]LE PACE [facility] Start: 03-03-2024 End: 03-04-2024 ambulatory PROVIDER NOT SPECIFIED OTHER Facility:A Start: 03-03-2024 End: 03-03-2024 SAME DAY STAY OLE PACE MD [facility] Start: 02-04-2024 End: 02-04-2024 ambulatory NONE PHYSICIAN Facility:A Start: 01-21-2024 End: 01-21-2024 ambulatory HILDA HADDAD MD Facility:A Start: 01-21-2024 End: 01-21-2024 SAME DAY STAY OLE PACE MD [facility] Start: 01-13-2024 ambulatory NONE PHYSICIAN Facility :A Start: 01-06-2024 End: 01-06-2024 ambulatory NONE PHYSICIAN Facility:A Start: 01-06-2024 End: 01-06-2024 Patient encounter procedure OLE PACE MD [facility] Start: 12-17-2023 ambulatory NONE PHYSICIAN Facility :A Start: 12-08-2023 End: 12-08-2023 ambulatory NONE PHYSICIAN Facility:A Start: 12-08-2023 End: 12-08-2023 Patient encounter procedure OLE PACE MD [facility] Start: 12-08-2023 End: 12-08-2023 ambulatory NONE PHYSICIAN Facility:A Start: 12-03-2023 End: 12-03-2023 ambulatory RITA YEH MD Facility:A Start: 12-03-2023 End: 12-03-2023 SAME DAY STAY BRITTNI LU APRN-ELECTRIC MOTOR TESTER [employer] [facility] Start: 11-19-2023 End: 11-19-2023 ambulatory HOWARD PHYSICIAN Facility:A Start: 11-19-2023 End: 11-19-2023 Patient encounter procedure OLE PACE MD [employer] [facility] Start: 10-22-2023 End: 10-22-2023 ambulatory VIRAL MASON MD, Ph.D Facility:A Start: 10-22-2023 End: 10-22-2023 SAME DAY STAY BRITTNI LU YANA-ELECTRIC MOTOR TESTER [facility] Start: 09-12-2023 End: 09-12-2023 ambulatory FLIP MARTIN MD Facility:A Start: 09-12-2023 End: 09-12-2023 Patient encounter procedure OLE PACE MD [facility] Start: 08-28-2023 End: 08-28-2023 ambulatory FLIP MARTIN MD Facility:A Start: 08-25-2023 [facility] Start: 08-21-2023 End: 08-21-2023 ambulatory FLIP MARTIN MD Facility:A Start: 08-21-2023 End: 08-21-2023 Patient encounter procedure OLE PACE MD [facility] Start: 07-30-2023 End: 08-03-2023 ambulatory FLIP MARTIN MD Facility:A Start: 07-30-2023 End: 07-30-2023 ambulatory FLIP MARTIN MD Facility:A Start: 07-30-2023 End: 07-30-2023 Patient encounter procedure FLIP MARTIN MD [employer] [facility] Start: 07-24-2023 End: 07-24-2023 ambulatory MARIN COTE MD Facility:A Start: 07-24-2023 End: 07-24-2023 SAME DAY STAY FLIP MARTIN MD [facility] Start: 07-18-2023 ambulatory FLIP MARTIN MD Facili ty:A Start: 07-08-2023 End: 07-16-2023 Evaluation and management of inpatient FLIP MARTIN MD [facility] Start: 07-08-2023 ambulatory FLIP MARTIN MD Facili ty:A Start: 06-26-2023 End: 06-26-2023 ambulatory FLIP MARTIN MD Facility:A Start: 06-26-2023 End: 06-26-2023 Patient encounter procedure FLIP MARTIN MD [facility] Start: 05-15-2023 End: 05-15-2023 Patient encounter procedure FLIP MARTIN MD [facility] Start: 04-27-2023 End: 05-07-2023 Evaluation and management of inpatient FLIP MARTIN MD [facility] Start: 02-23-2023 End: 03-05-2023 Evaluation and management of inpatient FLIP MARTIN MD [facility] Start: 02-17-2023 End: 02-17-2023 Patient encounter procedure BRITTNI OMER [facility] Start: 01-01-2023 End: 01-06-2023 Evaluation and management of inpatient FLIP MARTIN MD [facility] Start: 01-01-2023 End: 01-01-2023 Patient encounter procedure FLIP MARTIN MD [facility] Start: 01-01-2023 End: 01-01-2023 Patient encounter procedure FLIP MARTIN MD [facility] Start: 11-15-2022 End: 11-15-2022 Patient encounter procedure BRITTNI LU CATHOLIC [employer]IE[employer]IC MOTOR TE[employer] [facility] Start: 09-30-2022 End: 10-08-2022 Evaluation and management of inpatient FLIP MARTIN MD [facility] Start: 09-27-2022 End: 09-27-2022 Emergency department patient visit GUCCI ALEXANDRE MD [facility] Start: 08-08-2022 End: 08-16-2022 Evaluation and management of inpatient FLIP MARTIN MD [facility] Start: 08-08-2022 End: 08-08-2022 Patient encounter procedure BRITTNI LU CATHOLIC PRIE[employer]ELECTRIC MOTOR TESTER [facility] Start: 07-04-2022 End: 07-04-2022 Patient encounter procedure BRITTNI LU CATHOLIC PRIEST[employer]ELECTRIC MOTOR TESTER [facility] Start: 04-14-2022 End: 04-19-2022 Evaluation and management of inpatient FLIP MARTIN MD [facility] Start: 04-11-2022 End: 04-11-2022 Patient encounter procedure BRITTNI LU CATHOLIC PRIEST[employer]ELECTRIC MOTOR TESTER [facility] Start: 03-26-2022 End: 03-26-2022 Patient encounter procedure ERI DARNELL ALLENN-ELECTRIC MOTOR TESTER [facility] Start: 02-21-2022 End: 02-21-2022 Patient encounter procedure FLIP MARTIN MD [facility] Start: 12-21-2021 End: 12-21-2021 Patient encounter procedure FLIP MARTIN MD [facility] Start: 08-23-2021 End: 08-23-2021 Patient encounter procedure FLIP MARTIN MD [facility] Start: 07-11-2021 End: 07-14-2021 Evaluation and management of inpatient Shira Servetas [facility] [id number] Procedures Date Procedure Procedure Detail Performing Clinician Start: 06-04-2025 Urnls dip stick/tabl et reagent auto microscopy Dr. Jatin Garcia MD Work Phone: Start: 06-04-[address] Jatin Garcia MD Work Phone: Start: 06-04-2025 Computed tomography of abdomen and pelvis with intravenous contrast Dr. Jatin Garcia MD Work Phone: Start: 06-02-2025 Urnls dip stick/tabl et reagent auto microscopy Dr. Jatin Garcia MD Work Phone: Start: 06-02-[address] Jatin Garcia MD Work Phone: Start: 05-26-2025 Urinalysis GONZALEZ Jiménez Comment on above: Result Comment: URIN ALYSIS Performed By: #### 2 [id number] ####[facility],[address] [place] [address] Start: 05-05-2025 Exchange nephrostomy catheter prq w/img gid rs&i DR ARLEY MARIE DO Start: 05-03-2025 End: 05-03-2025 Urinalysis GONZALEZ CARTER Comment on above: Result Comment: URIN ALYSIS Performed By: #### 2 [id number] ####[place] [id number] Start: 04-09-2025 Urnls dip stick/tabl et reagent auto microscopy Dr. Jatin Garcia MD Work Phone: Start: 04-09-[address] Jatin Garcia MD Work Phone: Start: 04-03-2025 Urinalysis GONZALEZ Jiménez Comment on above: Result Comment: URIN ALYSIS Performed By: #### 2 [id number] ####[place] [id number] Start: 04-01-2025 Urinalysis GONZALEZ Jiménez Comment on above: Result Comment: URIN ALYSIS Performed By: #### 2 [id number] ####[facility],[address] [place] [address] Start: 03-23-2025 Urinalysis GONZALEZ Jiménez Comment on above: Result Comment: URIN ALYSIS Performed By: #### 2 [id number] ####[facility],[address] [place] [address] Start: 03-05-2025 Urinalysis GONZALEZ Jiménez Comment on above: Result Comment: URIN ALYSIS Performed By: #### 2 [id number] ####[facility],[address] [place] [address] Start: 02-16-2025 Exchange nephrostomy catheter prq w/img gid rs&i GONZALEZ SANDERS MD Start: 02-10-2025 Urinalysis GONZALEZ Jiménez Comment on above: Result Comment: URIN ALYSIS Performed By: #### 2 [id number] ####[facility],[address] [place] [address] Start: 02-10-2025 Urinalysis GONZALEZ URBANO R Comment on above: Result Comment: URIN ALYSIS Performed By: #### 2 [id number] ####[facility],[address] [place] [address] Start: 01-29-2025 Urinalysis GONZALEZ URBANO R Comment on above: Result Comment: URIN ALYSIS Performed By: #### 2 [id number] ####[facility],[address] [place] [address] Start: 12-22-2024 Exchange nephrostomy catheter prq w/img gid rs&i GONZALEZ SANDERS MD Start: 12-22-2024 Removal of implantab le venous access port GONZALEZ SANDERS MD Start: 12-10-2024 Urinalysis GONZALEZ URBANO R Comment on above: Result Comment: URIN ALYSIS Performed By: #### 2 [id number] ####[facility],[address] [place] [address] Start: 11-06-2024 End: 11-06-2024 Urinalysis GONZALEZ CARTER Comment on above: Result Comment: URIN ALYSIS Performed By: #### 2 [id number] ####[place] [address] Start: 10-13-2024 Exchange nephrostomy catheter prq w/img gid rs&i GONZALEZ SANDERS MD Start: 07-10-2024 Urinalysis GONZALEZ URBANO R Comment on above: Result Comment: URIN ALYSIS Performed By: #### 2 [id number] ####[facility],[address] [place] [address] Start: 06-16-2024 JJ-stent (physical object) NASRIN ISABEL [...] a cervical biopsy done on 04/07/2020 [facility] for a cervical mass Start: 11-03-2001 Tumor cells, benign (morphologic abnormality) FLIP MARTIN MD Comment on above: 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 done [facility] [place] Cannulation of subcutaneous reservoir FLIP MARTIN MD Comment on above: right H/O: surgery H/O insertion of nephrostomy tube Dr. Jatin Garcia MD Work Phone: H/O: surgery History of inser tion of nephrostomy tube Dr. Jatin Garcia MD Work Phone: History of radiation therapy History of radiation therapy( Confirmed ) FLIP MARTIN MD Nephrostomy with tub e drainage FLIP MARTIN MD Comment on above: left Plan of Treatment Date Care Activity Detail Author Start: 2063 RSV Immunization for Adults (1 - 1-dose 75+ series) RSV Immunization for Adults (1 - 1-dose 75+ series) [facility] Start: 2038 Zoster Vaccines (1 of 2) Zoster Vaccines (1 of 2) [facility] Start: 07-04-2025 Influenza vaccination Influenza Vaccine (#1) [facility] Start: 06-04-2025 Bacteria identified in Urine by Culture Urine Culture [facility] Start: 06-04-2025 [facility] Start: 06-04-2025 [facility] Start: 06-02-2025 Bacteria identified in Urine by Culture Urine Culture [facility] Start: 06-02-2025 Urine culture Urine Culture [facility] Start: 06-02-2025 [facility] Start: 05-26-2025 End: 05-26-2025 Patient encounter procedure 05/26/2025 2:00 PM EDT Office Visit [facility] [address] [facility] [place] [id number] Ben Fonseca MD [address] [place], [place] [id number] [facility] Start: 04-09-2025 [facility] Start: 07-04-2024 COVID-19 Vaccine ( season) COVID-19 Vaccine ( season) [facility] Start: 08-09-2021 Patient encounter procedure [facility] [place] Start: 07-14-2021 End: 07-15-2022 Pneumococcal 13-Valent (PREVNAR 13) Vaccine 0.5 mL IntraMuscular Once ; DOSE = 0.5 mL IntraMuscular Once Start: 14-Jul-2021 End: 14-Jul-2022 Ordered: 13-Jul-2021 Alycia Pritchett [facility] Start: 2018 Screening for malignant neoplasm of cervix [facility] Start: 2009 Screening for malignant neoplasm of cervix Pap Smear [facility] Start: 2007 DTaP/Tdap/Td Vaccines (1 - Tdap) DTaP/Tdap/Td Vaccines (1 - Tdap) [facility] Start: 2007 Hepatitis B Vaccines (1 of 3 - 19+ 3-dose series) Hepatitis B Vaccines (1 of 3 - 19+ 3-dose series) [facility] Start: 2006 Hepatitis C screening Hepatitis C Screening [facility] Start: 2001 Varicella vaccination Varicella Vaccines (1 of 2 - 13+ 2-dose series) [facility] Start: 2000 Depression Screening Depression Screening [facility] Start: 1989 MMR Vaccines (1 of 1 - Standard series) MMR Vaccines (1 of 1 - Standard series) [facility] Start: 1988 HIV screening HIV Screening [facility] Patient Education [facility] Work Phone: Patient referral [facility] Work Phone: 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 Urine culture [facility] Urine culture [facility] Immunizations Immunization Date Immunization Notes Care Provider Fa irish 06-16-2001 hepatitis B pediatri c vaccine [facility] LU CATHOLIC PRIE[employer]ELECTRIC MOTOR TESTER [facility] 06-16-2001 measles/mumps/rubell a virus vaccine BRITTNI LU CATHOLIC PRIEST[employer]ELECTRIC MOTOR TESTER [facility] 06-21-1998 hepatitis B pediatri c vaccine [facility] LU CATHOLIC PRIEST[employer]ELECTRIC MOTOR TESTER [facility] 04-06-1990 measles/mumps/rubell a virus vaccine [facility] LU CATHOLIC PRIEST[employer]ELECTRIC MOTOR TESTER [facility] Payers Date Payer Category Payer Medicare [id number] 2024 Self-pay 2024 Medicare [id number] 2023 Private Health Insurance [id number] 2022 Medicaid [id number] 2022 Private Health Insurance [id number] 1988 Unknown [id number] 2.16840.1.507230.3.579.2. 1988 Unknown [id number] 2.16840.1.675807.3.579.2. 62 1988 Unknown [id number] 2.16840.1.798492.3.579.2 1988 Unknown [id number] 2.840.1.539009.3.579.2 1988 Unknown [id number] 2.840.1.666050.3.579.2 1988 Unknown [id number] 2.840.1.940374.3.579.2 1988 Unknown [id number] 2.840.1.210267.3.579.2 1988 Unknown [id number] 2.840.1.599657.3.579.2 1988 Unknown [id number] 2.840.1.766134.3.579.2 1988 Unknown [id number] 2.840.1.996887.3.579.2 1988 Unknown [id number] 2.840.1.241805.3.579.2 1988 Unknown [id number] 2.16840.1.960205.3.579.2 1988 Unknown [id number] 2.16840.1.172276.3.579.2 1988 Unknown [id number] 2.16840.1.796858.3.579.2 62 1988 Unknown [id number] 2.16840.1.740634.3.579.2. 1988 Unknown [id number] 2.840.1.208590.3.579.2. 1988 Unknown [id number] 2.840.1.269861.3.579.2 1988 Unknown [id number] 2.840.1.941747.3.579.2. 1988 Unknown [id number] 2.840.1.715843.3.579.2. 1988 Unknown [id number] .840.1.544516.3.579.2 1988 Unknown [id number] 2.840.1.574141.3.579.2 1988 Unknown [id number] .1.791245.3.579.2 1988 Unknown [id number] 2.840.1.789556.3.579.2. 1988 Unknown [id number] .1.427723.3.579.2 1988 Unknown [id number] 84.1.030403.3.579.2. 1988 Unknown [id number] .1.718150.3.579.2. 1988 Unknown [id number] 2840.1.488736.3.579.2. 1988 Unknown [id number] 840.1.847583.3.579.2. 1988 Unknown [id number] 2840.1.764956.3.579.2 1988 Unknown [id number] 2840.1.500532.3.579.2 1988 Unknown [id number] 840.1.380450.3.579.2. 627 1988 Unknown [id number] 2.16840.1.696174.3.579.2. 1988 Unknown [id number] 2.16840.1.988669.3.579.2. 7 1988 Unknown [id number] 2.16840.1.112332.3.579.2. 1988 Unknown [id number] 2.16840.1.354145.3.579.2. 1988 Unknown [id number] 2.840.1.676687.3.579.2 1988 Unknown [id number] 2.840.1.176537.3.579.2 1988 Unknown [id number] 2.840.1.373722.3.579.2 1988 Unknown [id number] 2.840.1.487027.3.579.2 1988 Unknown [id number] 2.840.1.905555.3.579.2 1988 Unknown [id number] 2.840.1.009551.3.579.2. 1988 Unknown [id number] 840.1.031397.3.579.2 1988 Unknown [id number] 2.840.1.079410.3.579.2. 1988 Unknown [id number] 216840.1.543984.3.579.2 1988 Unknown [id number] 2.16840.1.198167.3.579.2. 1988 Unknown [id number] 2840.1.733281.3.579.2 1988 Unknown [id number] 2.16840.1.266752.3.579.2 1988 Unknown [id number] 2.16840.1.494518.3.579.2 1988 Unknown [id number] 2.16840.1.224547.3.579.2 1988 Unknown [id number] 2.840.1.736120.3.579.2 1988 Unknown [id number] 2.840.1.201344.3.579.2 1988 Unknown [id number] 2.840.1.976082.3.579.2 1988 Unknown [id number] 2.840.1.672269.3.579.2 1988 Unknown [id number] 2.840.1.464261.3.579.2 1988 Unknown [id number] 2.840.1.478581.3.579.2 1988 Unknown [id number] 2.840.1.420392.3.579.2 1988 Unknown [id number] 2.840.1.222109.3.579.2 1988 Unknown [id number] 2.840.1.996436.3.579.2 1988 Unknown [id number] 2.840.1.441133.3.579.2 1988 Unknown [id number] 2.16840.1.606394.3.579.2 1988 Unknown [id number] 2.16840.1.583675.3.579.2 1988 Unknown [id number] 2.16840.1.303328.3.579.2. 627 1988 Unknown [id number] 2.16.840.1.626664.3.579.2. 627 1988 Unknown [id number] 2.16.840.1.654625.3.579.2. 627 1988 Unknown [id number] 2.16.840.1.056698.3.579.2. 651 1988 Unknown [id number] 2.16.840.1.654368.3.579.2. 651 1988 Unknown [id number] 2.16840.1.915129.3.579.2. 651 1988 Unknown [id number] 2.16840.1.559096.3.579.2. 651 1988 Unknown [id number] 2.840.1.674788.3.579.2. 651 1988 Unknown [id number] 2.16840.1.176575.3.579.2. 651 1988 Unknown [id number] 2.16840.1.516677.3.579.2. 651 1988 Unknown [id number] 2.16840.1.976040.3.579.2. 651 1988 Unknown [id number] 2.16840.1.409847.3.579.2. 651 1988 Unknown [id number] 2.16840.1.079390.3.579.2. 651 1988 Unknown [id number] 2.16840.1.445158.3.579.2. 651 1988 Unknown [id number] 2.16840.1.819740.3.579.2. 651 1988 Unknown [id number] 2.16840.1.472129.3.579.2. 651 1988 Unknown [id number] 2.16.840.1.713826.3.579.2. 651 1988 Unknown [id number] 2.16.840.1.431660.3.579.2. 651 1988 Unknown [id number] 2.16.840.1.576277.3.579.2. 651 1988 Unknown [id number] 2.16.840.1.877935.3.579.2. 651 1988 Unknown [id number] 2.16.840.1.450953.3.579.2. 651 1988 Unknown [id number] 2.16.840.1.879877.3.579.2. 651 1988 Unknown [id number] 2.16.840.1.026275.3.579.2. 651 1988 Unknown [id number] 2.16.840.1.455642.3.579.2. 651 Unknown [facility] Medicare [id number] Unknown [id number] 2.16.840.1.221907.3.579.2. 462 Unknown [id number] 2.16.840.1.802154.3.579.2. 462 Unknown [id number] 2.16.840.1.737139.3.579.2. 462 Social History Date Type Detail Facility [facility] [place] Tobacco smoking consumption unknown [facility] Start: 04-12-2020 End: 02-16-2025 Light tobacco smoker (finding) [facility] Comment on above: current vaping Start: 1990 Sex Assigned At Female [facility] Start: 07-09-2023 End: 12-16-2024 Tobacco smoking status Ex-smoker (finding) [facility] Comment on above: current vaping Tobacco smoking status Never [facility] Comment on above: current vaping Sexual Orientation [facility] Start: 04-10-2020 End: 05-16-2025 Sex Female (finding) [facility] Start: 04-09-2025 End: 06-03-2025 Tobacco smoking status NJIS Smokes tobacco daily (finding) [facility] Start: 1988 Sex assigned at Not on file [facility] Gender identity Not on file [facility] Medical Equipment Procedure Code Equipment Code Equipment [...] Assessment Result Facility 03-09-2025 Functional Status Independent [facility] 03-09-2025 Functional Status Standard Safet y ID band on, Call device within reach, Bed in low position, Wheels locked, Upper/Half-Length side-rails up, Phone within reach, personal items within reach, Assistive devices within reach, Bedside Cart Locked, Law enforcement present [facility] 02-16-2025 Functional Status Awake, Resting [facility] 02-16-2025 Functional Status Less than 8 hours [facility] 12-22-2024 Functional Status Independent [facility] 12-22-2024 Functional Status Repositions self [facility] 12-22-2024 Functional Status Maintained [facility] 12-16-2024 Functional Status [facility] 08-11-2024 Functional Status Independent [facility] 08-11-2024 Functional Status Repositions self [facility] 08-11-2024 Functional Status Maintained [facility] 08-06-2024 Functional Status Sensory Deficits None [facility] 06-09-2024 Functional Status Awake, Up ad marisa [facility] 06-09-2024 Functional Status [facility] 06-09-2024 Functional Status Maintained [facility] 04-14-2024 Functional Status Awake, Resting [facility] 04-14-2024 Functional Status Sensory Deficits None [facility] 03-03-2024 Functional Status Awake, Resting [facility] 03-03-2024 [facility] [place] 01-21-2024 Functional Status Awake, Resting [facility] 01-21-2024 Functional Status Independent [facility] 01-21-2024 Functional Status Maintained [facility] 12-03-2023 Functional Status Up ad marisa [facility] 12-03-2023 Functional Status ID band on, Allergy Band on, Call device within reach, Bed in low position, Wheels locked, Upper/Half-Length side-rails up, Phone within reach, personal items within reach, Visitor at bedside, Non-Slip footwear [facility] 12-03-2023 Functional Status Maintained [facility] 10-22-2023 Functional Status Awake [facility] 10-22-2023 Functional Status [facility] 10-22-2023 Functional Status Maintained [facility] 07-24-2023 Functional Status Awake [facility] 07-24-2023 Functional Status [facility] 07-24-2023 Functional Status Maintained [facility] 07-16-2023 Functional Status Room check performed [facility] 07-16-2023 Functional Status [facility] 07-16-2023 Functional Status [facility] 07-15-2023 Functional Status [facility] 07-15-2023 Functional Status [facility] 07-15-2023 Functional [facility] 07-15-[facility]23 Functional Status Dinner Percent 75 [facility] 07-15-2023 Functional Status [facility] 07-15-2023 Functional [facility] Functional Status Maintained [facility] 07-14-2023 Functional Status [facility] 07-13-2023 Functional Status [facility] 07-13-2023 Functional Status [facility] 07-13-2023 Functional Status Independent [facility] 07-13-2023 Functional Status [facility] 07-12-2023 Functional Status [facility] 07-11-2023 Functional Status Done [facility] 07-11-2023 Functional Status [facility] 07-10-2023 Functional Status [facility] 07-10-2023 Functional Status [facility] 07-09-2023 Functional Status Beds/Devices H ospital bed, pressure reduction mattress [facility] 07-09-2023 Functional Status Personal ADL [facility]-09[facility]23 Functional Status Sensory Deficits None [facility] 05-07-2023 Functional Status Room check performed [facility] 05-07-2023 Functional Status [facility] 05-07-2023 Functional Status [facility] 05-07-2023 Functional Status [facility] 05-06-2023 Functional Status [facility] 05-05-2023 Functional Status Lunch Percent 75 [facility] 05-05-2023 Functional Status [facility] 05-04-2023 Functional Status Patient refused [facility] 05-03-2023 Functional Status Hospital bed [facility] 05-02-2023 Functional Status Done [facility] 05-02-2023 Functional Status [facility] 05-01-2023 Functional Status [facility] 04-30-2023 Functional Status Feeding Assistance Inde pendent [facility] 04-29-2023 Functional Status [facility] 04-29-2023 Functional Status NPO Status Maintained [facility] 04-28-2023 Functional Status Sensory Deficits None [facility] 03-05-2023 Functional Status 75 [facility] 03-05-2023 Functional Status Not done 1 [facility] 03-05-2023 Functional Status Non-Slip footw ear, Room check performed [facility] 03-04-2023 Functional Status [facility] 03-04-2023 Functional Status [facility] 03-04-2023 Functional Status Independent [facility] 03-02-2023 Functional Status [facility] 03-01-2023 Functional Status [facility] 03-01-2023 Functional Status Repositions self [facility] 03-01-2023 Functional Status [facility] 02-28-2023 Functional Status [facility] 02-28-2023 Functional Status [facility] 02-28-2023 Functional Status SCD Removed/Of f bilateral knee [facility] 02-28-2023 Functional Status [facility] 02-27-2023 Functional Status [facility] 02-27-2023 Functional Status [facility] 02-27-2023 Functional Status [facility] 02-25-2023 Functional Status [facility] 02-24-2023 Functional Status [facility] 02-24-2023 Functional Status Living Situation Lives alone [facility] 02-24-2023 Functional Status [facility] 02-17-2023 Functional Status Ambulating in avila, Ambulating in room, Up ad marisa, Up to bathroom [facility] 02-17-2023 Functional Status Maintained [facility] 01-06-2023 Functional Status None [facility] 01-06-2023 Functional Status SCD Removed/Of f bilateral knee [facility] 01-06-2023 Functional Status [facility] 01-06-2023 Functional Status [facility] 01-06-2023 Functional Status Yes [facility] 01-06-2023 Functional Status Room check performed [facility] 01-05-2023 Functional Status [facility] 01-04-2023 Functional Status SCD On/Re-appl ied bilateral knee [facility] 01-03-2023 Functional Status Independent [facility] 01-02-2023 Functional Status NPO Status confirmed [facility] 01-02-2023 Functional Status Living Situation Lives alone [facility] 01-01-2023 Functional Status Awake [facility] 01-01-2023 Functional Status [facility] 11-15-2022 Functional Status ID band on, Allergy Band on, Safety level maintained [facility] 11-15-2022 Functional Status NPO Status confirmed [facility] 11-15-2022 Functional Status [facility] 10-08-2022 Functional Status Yes [facility] 10-08-2022 Functional Status [facility] 10-08-2022 Functional Status [facility] 10-08-2022 Functional Status [facility] 10-07-2022 Functional Status [facility] 10-07-2022 Functional Status High Risk Safe ty Room check performed [facility] 10-07-2022 Functional Status [facility] 10-07-2022 Functional Status [facility] 10-06-2022 Functional Status [facility] 10-06-2022 Functional Status [facility] 10-05-2022 Functional Status [facility] 10-05-2022 Functional Status Hospital bed [facility] 10-05-2022 Functional Status [facility] 10-03-2022 Functional Status Living Situation Lives alone [facility] 10-03-2022 Functional Status Independent [facility]02-[facility] Functional Status Mod I 2 [facility] 10-01-2022 [facility] Functional Status Door open, Room check performed [facility] 08-15-2022 Functional Status Demonstrates C orrect Call Light Use Yes [facility] 08-15-2022 Functional Status [facility] 08-15-2022 Functional Status [facility] 08-15-2022 Functional Status [facility] 08-14-2022 Functional Status Maintained [facility] 08-13-2022 Functional Status [facility] 08-12-2022 Functional Status [facility] 08-11-2022 Functional Status Assistive Device None [facility]10[facility] Functional Status Independent, Setup [facility] 08-09-2022 Functional Status bilateral knee high [facility] 08-09-2022 Functional Status [facility] 08-08-2022 Functional Status Awake, Remains up in chair, Repositions self, Resting [facility] 08-08-2022 Functional Status [facility] 07-04-2022 Functional Status confirmed [facility] 07-04-2022 Functional Status [facility] 04-19-2022 Functional Status Yes [facility] 04-19-2022 Functional Status Patient refused [facility] 04-19-2022 Functional Status Room check performed [facility] 04-18-2022 Functional Status [facility] 04-18-2022 Functional Status [facility] 04-18-2022 Functional Status [facility] 04-18-2022 Functional Status [facility] 04-18-2022 Functional Status SCD Removed/Of f bilateral knee high [facility] 04-18-2022 Functional Status [facility] 04-17-2022 Functional Status [facility] 04-17-2022 Functional Status [facility] 04-17-2022 Functional Status [facility] 04-16-2022 Functional Status [facility] 04-15-2022 Functional Status [facility] 04-15-2022 Functional Status [facility] 04-15-2022 Functional Status [facility] 04-11-2022 Functional Status confirmed [facility] 04-11-2022 Functional Status Sensory Deficits None [facility] 03-26-2022 Functional Status ID band on, Allergy Band on [facility] Functional observable [facility] [place] Mental Status Date Assessment Result Facility 03-15-2025 Mental Status Orientation Oriented x 4 [facility] 03-09-2025 Mental Status Orientation Oriented x 4 [facility] 03-09-2025 [facility] 12-22-2024 [facility] x [facility] 08-11-2024 [facility] Status [facility] x [facility] 08-11-[facility]24 [facility] 08-11-[facility]24 Mental Status Orientation Asse ssment Oriented x 4 [facility] 06-09-2024 Mental Status [facility] x [facility] 04-14-[facility]24 [facility] x [facility] 03-03-2024 Mental Status Orientation Oriented x 4 [facility] 03-03-2024 [facility] 03-03-[facility] 01-21-2024 Mental Status Orientation Oriented x 4 [facility] 01-21-2024 [facility] 01-21-[facility]24 [facility] 12-03-2023 Mental Status Orientation Oriented x 4 [facility] 12-03-2023 [facility] 12-03-[facility]23 [facility] 10-22-2023 Mental Status [facility] x [facility] 07-24-2023 Mental Status [facility] x [facility] 07[facility]16-2023 Mental Status [facility] x [facility] 07[facility]15-[facility]23 [facility] 07-15-[facility]23 [facility] 07-14-[facility]23 [facility] 05-07-2023 Mental Status Orientation Oriented x 4 [facility] 05-06-2023 [facility] 05-05[facility] Mental Status Orientation Asse ssment Oriented x 4 [facility] 05-05-2023 [facility]-05[facility] 03-05-[facility]23 [facility] x [facility] 03[facility]04-[facility]23 [facility] 03-04[facility] 03-03-[facility] 02-17-[facility]23 Mental Status Orientation Oriented x 4 [facility] 02-17-2023 [facility] 01-06-[facility]23 Mental Status Orientation Oriented x 4 [facility] 01-05-2023 [facility] 01-05[facility] 01-02-[facility]23 Mental Status Orientation Asse ssment Oriented x 4 [facility] 01-01-2023 [facility] 01-01[facility]23 Mental Status Orientation Oriented x 4 [facility] 11-15-2022 Mental Status [facility] x [facility] 10-08-2022 Mental Status Orientation Oriented x 4 [facility] 10-08-2022 [facility] 10-07[facility] 10-06-[facility]22 Mental Status Orientation Asse ssment Oriented x 4 [facility] 10-03-2022 [facility] Status [facility] 10-02[facility] 08-16-[facility]22 [facility] x [facility] 08-15-[facility]22 [facility] 08-14-[facility] 08-11[facility] 08-08-[facility] Mental Status Orientation Oriented x 4 [facility] 07-04-2022 Mental Status [facility] x [facility] 07-04-[facility]22 [facility] 04-19-2022 Mental Status Orientation Oriented x 4 [facility] 04-18-2022 Mental Status [facility] 04-18-2022 Mental Status [facility] 04-11-2022 Mental Status Oriented x 4 [facility] 04-11-2022 Mental Status [facility] 07-13-2021 Cognitive functi ons [id number] [facility] Clinical Notes 07-02-2021 to 06-04-2025 Note Date & Type Note Facility 06-04-2025 Radiology Diagnostic study note [facility] Imaging Services [address] [facility] [place], [place] [id number] Abdomen/Pelvis W IV Cont ONLY MR#: [id number] Acct: [id number] Name: LALY NAVAS Rep #: [id number] : 1990 F 34 From: Stefanie Crowley MD PCP: OLE PACE Status: REG ER Study:Abdomen/Pelvis W IV Cont ONLY Date of E xam: 06/04/25 Exam# [id number] Ordering Dr: Yeison Webber DO PROCEDURE: ABDOMEN/PELVIS W IV CONT ONLY 06/04/2025 REASON FOR EXAM: PAIN TECHNIQUE: ABDOMEN/PELVIS W IV CONT ONLY Coronal and Sagittal reconstruction series were provided. CONTRAST: Isovue 370 VOLUME: 75 mL One or more dose reduction techniques were used (e.g., Automated exposure control, adjustment of the mA and/or kV according to patient size, use of iterative reconstruction technique. RADIATION DOSE SUMMARY: CTDlvol: 6 mGy DLP: 272 mGycm COMPARISON: No FINDINGS: Under aerated lung bases. Normal heart size. Liver is upper limits of normal for size, correlate for medical liver disease. Normal gallbladder, pancreas,, adrenal glands, right kidney. Left renal scarring. Percutaneous nephrostomy tube in good position. Simple left renal cysts. Thickening of the left-sided urothelial lining possible UTI or chronic inflammation. Multiple distal left ureteral stones, series 2 images 106, 116, 119, largest measures 3 mm. Unremarkable bladder. Status post hysterectomy. Small pelvic free fluid. Mild retroperitoneal adenopathy, at the kidney level, likely related to chronic left kidney inflammation. Mild presacral edema. No free air. Nonobstructed bowel. Normal appendix. No acute large bowel findings. Diverticulosis. No acute abdominal wall findings. CT/Abdomen/Pelvis W IV Cont ONLY IMPRESSION: Left renal scarring and percutaneous nephrostomy in good position. Left-sided urinary tract infection versus chronic inflammation of the urothelial lining. Multiple small distal left ureteral stones. Reading Location: [facility] CC: Dr. 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 She was afebrile but hypertensive on [...] her. Patient does have follow-up appointment with [facility] urology and will require further management. Unfortunately, [...] OLE PACE MD When:Within 1-2 days Where:[address] [place] [address] [place] [address]- [phone] Additional Information: Please call the office to schedule a hospital follow up appointment. Follow Up Appointments No qualifying data available. Follow Up Labs/Studies Discharge Labs No Follow-up Labs Discharge Studies No Follow-up Studies Discharge Diet No qualifying data available. Discharge Activity No qualifying data available. Digitally Signed by SKY HARRIS MD on 05/30/2025 04:50 PM [facility] 05-30-2025 Pastoral care Progress note Pastoral Care Note Entered On: 05/30/2025 15:47 EDT Performed On: 05/30/2025 11:55 EDT by Gump, Viral N Pastoral Care Spiritual Care Visit Initiated by [...] by Viral Villalobos on 05/30/2025 03:45 PM [facility] 05-30-2025 Nurse Progress note Patient insisted on leaving AMA. Tried to encourage patient to at least wait until the DrApril could come to speak with her. She refused any information and did not want to speak with DrApril before leaving. Patient was given AMA paperwork per her request. Digitally Signed by Padmini Ramirez LPN on 05/30/2025 12:51 PM [facility] 05-30-2025 Note Patient denies any issues managing Nephrostomy at home. Skin team not following. Digitally Signed by JAMAL Phipps on 05/30/2025 12:35 PM [facility] 05-29-2025 Note Date of Service 05/29/2025 Subjective Patient is a 34-year-old female with history of chronic hydronephrosis, chronic left ureteral stone status post recent nephrostomy tube placement in May 07, 2025, presenting with acute complicated UTI. Patient was recently discharged from urology service at [facility]. Currently planning to establish care with urology at [facility] on Friday. Overnight, patient is [...] from midnight. Discussed with urology team at [facility]. Patient was recently discharged from the service. [...] TIFFANY ARCHULETA MD on 05/29/2025 04:15 PM [facility] 05-29-2025 Hospital Discharg e instructions Additional Instructions You have multiple stones distal left ureter. You have a current nephrostomy tube that is in appropriate position. You have a urinary infection status post IV Rocephin. White count normal at 10 your creatinine normal at 0.87. Taking finish antibiotic as prescribed urine culture is pending. Nausea and home pain medicines as needed. Follow-up with your urologist as scheduled this week. If you develop any worsening symptoms not controlled with medications return for reevaluation. [facility] Work Phone: 05-28-2025 Note Date of Service 05/28/2025 Subjective Patient is a 34-year-old female with history of chronic hydronephrosis, chronic left ureteral stone status post recent nephrostomy tube placement in May 07, 2025, presenting with acute complicated UTI. Patient was recently discharged from urology service at [facility]. Currently planning to establish care with urology at [facility] on Friday. Overnight, patient is [...] tube replacement. Discussed with urology team at [facility]. Patient was recently discharged from the service. SCD for DVT prophylaxis Level of Care Indication Regular Floor DVT Prophylaxis Other: specify in note Maintenance IVF Indication NA / No maintenance IVF Indwelling Urinary Catheter Indication Obstruction Anticipated Timeline of Discharge 48 hours Anticipated DC Disposition Home without services Digitally Signed by TIFFANY ARCHULETA MD on 05/28/2025 01:36 PM [facility] 05-27-2025 History and physical note [facility]ist History and Physical Date [...] multiple times in the past. Urology from [facility] will no longer see the patient as she has been discharged from their service due to the patient's attitude toward staff. Patient reports that for the last several days she has had severe left sided flank pain. Has also had nausea but no vomiting. Denies fevers. Of note the patient does have an appointment with urology at [facility] on Friday afternoon to be evaluated for [...] negative. Vitals Signs(Last 24 hrs)__Last Charted Minimum _Maximum Temp36.7(MAY 27 15:21)36.7(MAY 27 15:21)36.8(MAY 27 12:53) [...] does have an appointment with urology at [facility] Friday afternoon to be evaluated for possible nephrectomy. Anxiety/depression. Continue home medications Chronic asthma not in exacerbation Cervical cancer in remission Chronic pain syndrome follows with palliative care Prophylaxis SCD in case of procedure Code status full code Digitally Signed by OLI HERRERA MD on 05/27/2025 10:35 PM [facility] 05-27-2025 Hospital Discharg e instructions Follow Up Care 05/27/2025 12:51:48 With:OLE PACE MD Address: [address] [place] [address] [place] [address]- [phone] When:1-2 days Comments:Please call the office to schedule a hospital follow up appointment. [facility] 05-27-2025 Evaluation + Plan note Extrac raghu from: Title:Clinical Document Author:OLI HERRERA MD Date:05/27/25 [facility]ist History and Physical Date [...] multiple times in the past. Urology from [facility] will no longer see the patient as she has been discharged from their service due to the patient's attitude toward staff. Patient reports that for the last several days she has had severe left sided flank pain. Has also had nausea but no vomiting. Denies fevers. Of note the patient does have an appointment with urology at [facility] on Friday afternoon to be evaluated for [...] does have an appointment with urology at [facility] Friday afternoon to be evaluated for possible [...] Diuretic 03/08/25 * NM Kidney Diuretic 04/12/25 [facility] 07-24-2025 Emergency department Discharge summary Discharge Instructions Thank you for allowing [facility] to assist you with your healthcare needs. [...] to receive it can visit one of [facility] vaccine clinics. There are many vaccine clinic locations within the State. For locations and available times, please visit www.gettheshot.coronavirus.[place].gov/. It is important to note that some COVID mobile vaccine clinics are held outdoors and may be canceled in rainy or stormy conditions. To learn more about pediatric vaccinations (ages 5-11), we invite you to visit the [facility] webpage. https://www.[facility].org/pages/7390-Wtnly-Uwezsezvdrz-Ujpihxsade-Eywwx-Ulh stions.htmlTo learn more about the COVID-19 vaccine, we invite you to visit the CDC website for a list of frequently asked questions. https://www.cdc.gov/coronavirus/2019-ncov/vaccines/faq.html [facility] Patient Portal Access Instructions: Stay connected with your healthcare team and access your personal medical information anytime with the [facility] Patient Portal. If you would like a full copy of your medical records please contact the [facility] Medical Records Department Friday through Friday between 8a.m. and 4:30p.m. Please follow the directions below to access the portal: 1.Access the email account you provided upon registration to the hospital.2.Look for an invitation email from [facility].3.Open the email and access the invitation link: Accept Invitation to [facility]4.Fill in the required quintero to create your account. Sign into [email or web address] with your username and password that you [...] you will allow to register on the [facility] Patient Portal for access to your information. You can also access the [facility] Patient Portal on the [employer] joya. Simply click on Health Records under Livemap and then click on the [employer] logo. HOW TO SAFELY DISPOSE OF PRESCRIPTION [...] Call your local pharmacy or go to [email or web address] to find one close to you.3.Make use of household items: Use cat litter or old coffee grounds to dispose medications if other options arenot available. Mix your drugs with these household products, seal them in an airtight container andthrow it into the garbage. Call [facility]: [phone] to be sure your drugs can be [...] aware that I should contact my doctor. 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 Spoke to patient, appt scheduled 05/26/[address] Raymundo Coburn.[facility]07-15-2025 Telephone encounter Note* Telephone Encounter - Lidazia Warren - 05/17/2025 1:40 PM EDT Referral received from [facility] to discuss nephrectomy for chronic hydronephrosis and obstructive uropathy. Spoke to patient, appt scheduled 05/26/[address] Raymundo Coburn. [id number] Miscellaneous Notes* Telephone Encounter - Lida Warren - 05/17/2025 1:40 PM EDT Referral received from [facility] to discuss nephrectomy for chronic hydronephrosis and obstructive uropathy. Spoke to patient, appt scheduled 05/26/[address] Raymundo Coburn. documented in this [facility]07-07-2025 Hospital Discharge instructions Patient Education 05/09/2025 04:54:31 [...] and water are not available, use alcohol-based rural route carrier to keep from spreading the infection to [...] Yellow color of the eyes or skin 0669-1103 [employer] [address] [place] [address]. All rights reserved. This information is not [...] foods again, start with small amounts of nyht-hp-gpazzu, low- fat foods. These include apple sauce, [...] increase stomach acid. Don't use aspirin or bdqj-bml-jkdgnbq pain and fever medicines, if possible. This includes nonsteroidal anti-inflammatory drugs (NSAIDs). Lose excess weight. Finish eating at least 2 hours before you go to bed or lie down. Raise the head of your bed. [phone] [employer] [address] [place] [address], [place] [address]. All rights reserved. This information is not intended as a substitute for professional medical care. Always follow yourhealthcare professional's instructions. Follow Up Care 05/08/2025 23:40:08 With:OLE PACE MD Address: [address] [place] [phone]- [phone] When:2-4 days [facility] 07-07-2025 Emergency department Discharge summary Discharge Instructions Thank you for allowing [facility] to assist you with your healthcare needs. The following is importantdischarge information regarding your hospital visit. Diagnosis from Today's Visit Cervical cancer Lt flank pain Vomiting What to Do Next Instructions from Your Care Team No qualifying data available. Post Acute Orders No qualifying data available. You Need to Schedule the Following Appointments Follow Up with OLE PACE MD When:Within 2-4 days Where:[address] [place] [phone] [phone] Allergies Haldol Tongue swelling Oranges Tongue swelling, [...] and water are not available, use alcohol-based rural route carrier to keep from spreading the infection to [...] Yellow color of the eyes or skin 0612-3861 [employer] [address] [place] [address]. All rights reserved. This information is not [...] foods again, start with small amounts of eagl-oj-trpxwo, low- fat foods. These include apple sauce, [...] increase stomach acid. Don't use aspirin or twkp-hqv-ktqldgc pain and fever medicines, if possible. This includes nonsteroidal anti-inflammatory drugs (NSAIDs). Lose excess weight. Finish eating at least 2 hours before you go to bed or lie down. Raise the head of your bed. 6822-4832 [employer] [address] [place] [address], [place] [address]. All rights reserved. This information is not intended as a substitute for professional medical care. Always follow yourhealthcare professional's instructions. Additional Information VACCINATE! IT SAVES LIVES! Members of the community who have not yet received the COVID-19 vaccine and would like to receive it can visit one of [facility] vaccine clinics. There are many vaccine clinic locations within the [facility]. For locations and available times, please visit www.gettheshot.coronavirus.[place].gov/. It is important to note that some COVID mobile vaccine clinics are held outdoors and may be canceled in rainy or stormy conditions. To learn more about pediatric vaccinations (ages 5-11), we invite you to visit the [facility] webpage. https://www.[facility].org/pages/8340-Dngej-Phwbslptzco-Pjaladykus-Rkhad-Rzn stions.htmlTo learn more about the COVID-19 vaccine, we invite you to visit the CDC website for a list of frequently asked questions. https://www.cdc.gov/coronavirus/2019-ncov/vaccines/faq.html [facility] Patient Portal Access Instructions: Stay connected with your healthcare team and access your personal medical information anytime with the [facility] Patient Portal. If you would like a full copy of your medical records please contact the [facility] Medical Records Department Friday through Friday between 8a.m. and 4:30p.m. Please follow the directions below to access the portal: 1.Access the email account you provided upon registration to the hospital.2.Look for an invitation email from [facility].3.Open the email and access the invitation link: Accept Invitation to [facility]4.Fill in the required quintero to create your [...] you will allow to register on the [facility] Patient Portal for access to your information. You can also access the [facility] Patient Portal on the Flipora. Simply click on Health Records under Livemap and then click on the Vanessa logo. [...] Call your local pharmacy or go to [email or web address] to find one close to you.3.Make use of household items: Use cat litter or old coffee grounds to dispose medications if other options arenot available. Mix your drugs with these household products, seal them in an airtight container andthrow it into the garbage. Call [facility]: [phone] to be sure your drugs can be [...] aware that I should contact my doctor. 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 Follow Up Follow Up with OLE PCAE MD When:Within 1-2 days Where:[address] [place] [address] [place] [phone] Additional Information: Please call the office to [...] 30 minutes [1] Progress Note; TERRY RAMOS APRN-KANDY 05/06/2025 12:49 EDT Digitally Signed by TERRY RAMOS on 05/07/2025 12:09 PM [facility] HospitalIigzoenq63-14-4753 Discharge summary Date of Service 05/07/2025 Discharge [...] tube via previouslyestablished tract with new 12 Afghan nephrostomy catheter tip curled in theleft renal [...] OLE PACE MD When:Within 1-2 days Where:[address] [place] [phone] [phone] Additional Information: Please call the office to [...] by TERRY RAMOS on 05/07/2025 12:09 PM [facility] HospitalNfapyijn64-06-4296 Hospital Discharge instructions Patient Education 05/07/2025 09:18:13 Radiology- Nephrostomy/Nephroureteral Tube Exchange 12/26/2022(CUSTOM) ESPARTO Nephrostomy/Nephroureteral Tube Exchange Discharge Instructions Interventional Radiology [facility] [address] [place] [address] The procedure that you had done today [...] the feeling of the need to urinate. Akwd-wjl-xjtijvr pain medication should be used for pain [...] the gauze. Supplies may be obtained at: [address] [facility] Any questions or concerns, please contact your physician or Interventional Radiology at [phone] from 8-4:30pm Friday-Friday. If you do not have a follow up appointment scheduled at the time of discharge, please call Interventional Radiology at the number listed above. Follow Up Care 05/04/2025 18:16:37 With:OLE PACE MD Address: [address] [place] [phone] When:1-2 days Comments:Please call the office to schedule a hospital follow up appointment. [facility] 07-05-2025 Note Discharge Instructions Thank you for allowing [facility] to assist you with your healthcare needs. [...] 05/11/2025 11:00 AM EDT OLE PACE MD [facility] Confirmed SO OV Follow Up 05/18/2025 11:20 AM EDT [facility] [address] [place] [phone] Confirmed IR Nephrostomy Exchange 05/19/2025 01:00 PM EDT IR Confirmed Follow Up Appointments Follow Up with OLE PACE MD When:Within 1-2 days Where:[address] [place] [phone] Additional Information: Please call the office to [...] medication providers or retail pharmacies. Education Materials ESPARTO Nephrostomy/Nephroureteral Tube Exchange Discharge Instructions Interventional Radiology [facility] [address] [place] [address] The procedure that you had done today [...] the feeling of the need to urinate. Seaz-bss-slkmhrh pain medication should be used for pain [...] the gauze. Supplies may be obtained at: [facility] [address] [facility] [address] [facility] Any questions or concerns, please contact your physician or Interventional Radiology at [phone] from 8-4:30pm Friday-Friday. If you do not have a follow up appointment scheduled at the time of discharge, please call Interventional Radiology at the number listed above. Additional Information VACCINATE! IT SAVES LIVES! Members of the community who have not yet received the COVID-19 vaccine and would like to receive it can visit one of [facility] vaccine clinics. There are many vaccine clinic locations within the [facility]. For locations and available times, please visit https://gettheshot.coronavirus.[place].gov/. It is important to note that some COVID mobile vaccine clinics are held outdoors and may be canceled in rainy or stormy conditions. To learn more about pediatric vaccinations (ages 5-11), we invite you to visit the [facility] webpage. https://www.[facility].org/pages/8508-Skuae-Tdgcnawclhy-Nxuwtmxhcz-Eornf-Fzj stions.htmlTo learn more about the COVID-19 vaccine, we invite you to visit the CDC website for a list of frequently asked questions.https://www.cdc.gov/coronavirus/2019-ncov/vaccines/faq.html [facility] Patient Portal Access Instructions: Stay connected with your healthcare team and access your personal medical information anytime with the [facility] Patient Portal. Please follow the directions below to create your [facility] account: 1.Access the email account you provided upon registration to the hospital/physician office.2.Look for an invitation email from [facility].3.Open the email and access the invitation link: AcceptInvitation to [facility].4.Fill in the required quintero to create your account. To access your account, visit ArcMail/[email or web address]. Click the blue button labeled Access Patient Portal and then log in with the username and password that you created in the steps above. You will be able to view your test results, lab results, a summary of your visits, upcoming appointments and more. There is also a convenient messaging option where you can send secure messages to your p [email or web address].tkvider. In addition, you will have the ability to download any documents or summaries to your computer and/or send the information securely to a physician. Remember that your healthcare information is confidential, so carefully consider who you will allowto register on the [facility] Patient Portal for access to your information. You can also access the [facility] Patient Portal on the [employer] joya. Simply click on Patient Portal and then log into your account. If you would like to receive a full copy of your medical records, please contact the [facility] Medical Records Department by calling [phone], Friday through Friday between 8 a.m. and [...] Call your local pharmacy or go to [email or web address] to find one close to you.3.Make use of household items: Use cat litter or old coffee grounds to dispose medications if other options arenot available. Mix your drugs with these household products, seal them in an airtight container andthrow it into the garbage. Call [facility]: [phone] to be sure your drugs can be [...] aware that I should contact my doctor. 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: Date/Time: Relationship to Patient: Witness Name/Signature: Date/Time: [facility] [id number] Note Date of Service 05/06/2025 Chief Complaint [...] by TERRY RAMOS on 05/06/2025 01:01 PM [facility] HospitalSbltboyq66-65-8667 Note* Exam Date Time Procedure Performing Provider Status 05/05/25 5:36 PM IR Nephrostomy Tube CLOTILDE RANDHAWA; Rhett (Verified) [id number] ORIGINAL PROCEDURE: INTRODUCTION-12 Afghan left NEPHRO TUBE via previously established tract [...] wire recanalization of previously established tract, 5 Afghan catheter was advanced and antegrade nephrostogram was performed. Catheter was exchanged over stiff guidewire for new 12 Afghan nephrostomy catheter. Tip curled in left renal pelvis. Antegrade nephrostogram performed to confirm satisfactory tube position. Catheter affixed to the patient's skin. External drainage bag and dressing applied. Patient tolerated procedure well. No complication suggested. CONTRAST: 8 mL Isovue 300 SEDATION: Moderate sedation was ordered and supervised by the attending with physician evwo-lm-usbc monitoring. Medications were provided and recorded by Radiology nurses. See radiology nursing notes for further discussion. FLUOROSCOPY DOSE AND TYPE: Radiation Exposure Index: Kerma 6.68 mGy, 1.5 minutes fluoroscopy time for procedure DESCRIPTION OF PROCEDURE: Informed consent was obtained after a detailed explanation of the procedure including risks, benefits, and alternatives. Payne protocol was observed. Sterile gowns, masks, hats and gloves utilized for maximal sterile barrier. As above in technique section FINDINGS: Intraprocedural images demonstrate satisfactory caval is a diop of previously established tract into the left renal collecting system. Antegrade nephrostogram demonstrates mild left hydronephrosis. Postprocedure images demonstrate new 12 Afghan left nephrostomy tube tip curled in the left renal pelvis. No complication suggested. IMPRESSION: Replacement of previously dislodged left nephrostomy tube via previously established tract with new 12 Afghan nephrostomy catheter tip curled in the left [...] 05/05/2025 5:58:35 PM Ordering Provider: GUCCI MACKEY [facility] [id number] Note IR Procedure Record Summary Primary Physician: CLOTILDE RANDHAWA DO Finalized Date/Time: 05/05/25 17:33:43 Pt. Name: ANTONELLALALY D.O.B./Sex: 1990 Female Med Rec #: [id number] Physician: RHIANNON ARTEAGA MD Financial #: [id number] Pt. Type: O Room/Bed: [facility]/A Admit/Disch: 05/04/25 18:15:33 - Institution: Allergies identified [...] Fairchild Megan R Rad Fierstos, Megan R Orchestrator 05/05/25 17:32:47 Tech 05/05/25 17:32:47 Tech 05/05/25 17:32:47 Entry 4 Case Attendee Sam Sim Role Performed Scrub Technologist Details Time In 05/05/25 16:50:00 Time Out 05/05/25 17:31:00 Procedure/Preference IR Nephrostomy Tube (SN) Card Last Modified By: Padmini Fairchild Orchestrator 05/05/25 17:32:47 Radiology Procedures- IR Entry 1 Procedure/Preference IR Nephrostomy Tube (SN) Actual Procedure ir nephrostomy tube Card Primary Procedure Yes Primary Surgeon CLOTILDE RANDHAWA DO Anesthesia/Sedation IV Sedation, Local Type Additional Procedure Times Start 05/05/25 17:13:00 Stop 05/05/25 17:21:00 Specialty Service SN Radiology Procedure EBL 0 mL Last Modified By: Padmini Fairchild Orchestrator 05/05/25 17:32:50 Radiology Procedure Details - IR [...] for suture Last Modified By: Padmini Fairchild Orchestrator 05/05/25 17:29:05 General Case Data - IR Entry 1 Case Information Room IR 17 Case Level IR Level 3 Wound Class None Specialty SN Radiology Procedure ASA Class None Diagnosis Preop Diagnosis left neph tube fell out Postop Same As Preop Yes Postop Diagnosis left neph tube fell out Last Modified By: Padmini Fairchild [employer] 05/05/25 17:33:07 Medication Administration- IR Entry 1 [...] Back from: Last Modified By: Padmini Fairchild Megan R [employer] 05/05/25 17:17:38 Tech 05/05/25 17:17:38 Procedure Case Times- IR Entry 1 Patient In Procedure Patient In OR 05/05/25 16:50:00 Patient Out of OR 05/05/25 17:31:00 Procedure Start/Stop Procedure Start Time 05/05/25 17:13:00 Procedure Stop Time 05/05/25 17:21:00 Last Modified By: Padmini Fairchild [employer] 05/05/25 17:29:18 Immediate Post OP Note - IR Entry 1 Immediate Post Yes Findings Successful left neph Procedure Note tube reinsertion displayed for Physician to review Closure Technique Closure Technique Other than Primary Last Modified By: Padmini Fairchild [employer] 05/05/25 17:18:38 Immediate Post OP Note - IR Signed By: CLOTILDE RANDHAWA DO 05/05/25 17:21 Allergy Information- IR Entry 1 Allergies Reviewed? Yes Allergies Reviewed Medical Record With Last Modified By: Padmini Fairchild [employer] 05/05/25 17:11:17 Radiology Protocols/Time Out- IR Entry [...] properly Grace, Padmini Fairchild labeled and R Orchestrator appropriately displayed, Alcohol based prep dry Instrument Sterility Team Members Sam Sim Verifying Sterility Procedure IR Nephrostomy Tube (SN) Last Modified By: Padmini Fairchild Orchestrator 05/05/25 17:16:02 Skin Prep- IR Entry 1 Procedure IR Nephrostomy Tube (SN) Skin Prep Prep Area Flank Side Left By Sam Sim Prep Agents Chloraprep Hair Removal Method N/A Last Modified By: Padmini Fairchild Orchestrator 05/05/25 17:18:04 Patient Positioning- IR Entry 1 Procedure IR Nephrostomy Tube (SN) Body Position OP Prone Feet Uncrossed? n/a Pressure Points n/a Checked Last Modified By: Padmini Fairchild Orchestrator 05/05/25 17:18:13 Radiology Procedure Plan - IR [...] Radiology - Action Plan Outcomes Met? Yes Senior Network Engineer Lyla Saucedo Completing stone setter Plan Last Modified By: Padmini Fairchild Orchestrator 05/05/25 17:18:59 Case Comments Finalized By: Padmini Fairchild Document Signatures Signed By: Padmini Fairchild 05/05/25 17:33 [facility] [id number] Procedure note Date of Service INTERVENTIONAL RADIOLOGY POST PROCEDURE NOTE Pre-Procedure Diagnosis: [accidental removal left nephrostomy tube ] Post Procedure Diagnosis: Same. Tanker Driver: Dr. Clotilde Randhawa DO Procedure: [recanalization of [...] CLOTILDE RANDHAWA DO on 05/05/2025 05:26 PM [facility] [id number] Evaluation + Plan noteExtracted from: Title:History and [...] Date:05/11/2025 11:00:00 AM Scheduled Provider:OLE PACE MD Location:[facility] Pall[facility] Appointment Type:PALL OV Follow Up Appointment Date:05/18/2025 11:20:00 AM Scheduled Provider: Location:[facility] Appointment Type:SO OV Follow Up Appointment Date:05/19/2025 01:00:00 PM Scheduled Provider: Location:IR Appointment Type:IR Nephrostomy Exchange Future Scheduled Tests Laboratory* hCG, quantitative (AH/AM Only) 11/15/24 Radiology* IR Nephrostomy Exchange 05/19/25 * IR Nephrostomy Exchange 12/30/24 * CT Renal 03/08/25 * NM Kidney Diuretic 03/08/25 * NM Kidney Diuretic 04/12/25 [facility] 07-03-2025 History and physical note Date [...] % (05/04/25 21:38:00) Basophil %: 0.8 % (05/04/25 21:38:00) Neutrophil, Absolute: 4.6 10^3/mcL (05/04/25 21:38:00) Lymphocyte, [...] Bili: Negative. (05/04/25 21:38:00) UA Ketones: Negative.1 (05/04/25 21:38:00) UA Blood: Negative. (05/04/25 21:38:00) UA pH: 8.0 (05/04/25:38:00) UA Protein: Negative.1 (05/04/25 21:38:00) UA Urobilinogen: 0.2 (05/04/25 21:38:00) UA Nitrite: Negative. (05/04/25 21:38:00) UA Leuk Est: Negative. (05/04/25 21:38:00) UA [...] Tumor cells, benign: 2002 Medications Home Medications (5) Active Ativan 1 [...] RHIANNON ARTEAGA MD on 05/05/2025 01:11 AM [facility] [id number] Hospital Discharge instructions Patient Education 05/03/2025 12:19:03 [...] may use Herbs, vitamins, and other supplements Qnin-hsx-szsyrmw medicines that don t need a prescription, [...] or if you develop fever or chills. 2761-7921 [employer] [address] [place] [address]. All rights reserved. This information is not intended as a substitute for professional medical care. Always follow yourhealthcare professional's instructions. Follow Up Care 05/03/2025 04:50:47 With:Call our interventional radiology department to schedule an outpatient nephrostomy exchange if you desire. Address:Unknown When:2-4 days With:You may follow-up with [facility] for nephrostomy exchange since that is where you told our urology practice that is where you will seek urolog care Address:Unknown When:2-4 days With:OLE PACE MD Address: [facility] [address] [place] [phone] When:2-4 days [facility] 07-01-2025 Emergency department Discharge summary Discharge Instructions Thank you for allowing [facility] to assist you with your healthcare needs. The following is importantdischarge information regarding your hospital visit. Diagnosis from Today's Visit Left flank pain What to Do Next Instructions from Your Care Team You are stable to discharge home. You would previously told our urology group that you would follow-up with [facility] in the future for urologic care. He may follow-up with [facility] orcall our interventional radiology department to [...] Follow Up with You may follow-up with [facility] for nephrostomy exchange since that is whereyou told our urology practice that is where you will seek urolog care When:Within 2-4 days Follow Up with OLE PACE MD When:Within 2-4 days Where:[address] [place] [phone] Allergies Haldol Tongue swelling Oranges Tongue swelling, [...] may use Herbs, vitamins, and other supplements Psad-pch-krfofyk medicines that don t need a prescription, [...] or if you develop fever or chills. 8668-3977 [employer] [address] [place] [address]. All rights reserved. This information is not intended as a substitute for professional medical care. Always follow yourhealthcare professional's instructions. Additional Information VACCINATE! IT SAVES LIVES! Members of the community who have not yet received the COVID-19 vaccine and would like to receive it can visit one of [facility] vaccine clinics. There are many vaccine clinic locations within the [facility]. For locations and available times, please visit www.gettheshot.coronavirus.[place].gov/. It is important to note that some COVID mobile vaccine clinics are held outdoors and may be canceled in rainy or stormy conditions. To learn more about pediatric vaccinations (ages 5-11), we invite you to visit the [facility] webpage. https://www.[facility].org/pages/1090-Igqyc-Tbfdtfjqrxw-Imeyoabeyc-Hpspy-Vtf stions.htmlTo learn more about the COVID-19 vaccine, we invite you to visit the CDC website for a list of frequently asked questions. https://www.cdc.gov/coronavirus/2019-ncov/vaccines/faq.html [facility] Patient Portal Access Instructions: Stay connected with your healthcare team and access your personal medical information anytime with the [facility] Patient Portal. If you would like a full copy of your medical records please contact the [facility] Medical Records Department Friday through Friday between 8a.m. and 4:30p.m. Please follow the directions below to access the portal: 1.Access the email account you provided upon registration to the [facility].2.Look for an invitation email from [facility].3.Open the email and access the invitation link: [facility] to [facility]4.Fill in the required quintero to create your account. Sign into [email or web address] with your username and password that you [...] you will allow to register on the [facility] Patient Portal for access to your information. You can also access the [facility] Patient Portal on the Flipora. Simply click on Health Records under Home Dialysis PlusData and then click on the [employer] logo. HOW TO SAFELY DISPOSE OF PRESCRIPTION [...] Call your local pharmacy or go to http://bit.ly/9M4Hm4u to find one close to you.3.Make use of household items: Use cat litter or old coffee grounds to dispose medications if other options arenot available. Mix your drugs with these household products, seal them in an airtight container andthrow it into the garbage. Call [facility]: [phone] to be sure your drugs can be [...] aware that I should contact my doctor. 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: Date/Time: Relationship to Patient: Witness Name/Signature: Date/Time: [facility] HospitalZqgkgxka57-17-6268 Note* Exam Date Time Procedure Performing Provider Status 05/03/25 10:[address] Abdomen/Pelvis w/o Contrast KELLEYCLOTILDE Jiménez MD; Auth (Verified) [id number] ORIGINAL EXAMINATION: CT OF THE ABDOMEN AND [...] CT W/IV CONTRAST AT 4AM TODAY IN [place] NEPHROSTOMY LEFT SINCE 2019 CERVICAL CA W/ [...] 05/03/2025 11:34:06 AM Ordering Provider: CLOTILDE VILLA [facility] HospitalHumfdufz90-45-0622 Discharge summary [facility] Medical Records Department [address] [place] [address] Emergency Department Summary 04/09/25 MR#: [id number] Acct: [id number] Name: LALY NAVAS Rep #:[id number] : 1990 34 From: Jatin Garcia MD [...] has been doing but the pain is izy-te-xbhqemc and she is feeling very nauseated and does not want to waste her pain management prescription by vomiting it up. She denies any fevers or chills. No dysuria orhematuria. She has been on antibiotics for several weeks, currently on Bactrim,and states that she was admitted to [facility] where her oncologist and urologist are, she [...] has known about those issues for years. [facility] Medical History Nephrostomy present Kidney failure [...] % (Auto) 54.6 Lymph % (Auto) 32.0 [place] % (Auto) 8.9 Eos % (Auto) 3.2 [...] Clarity Clear Urine pH 6.0 Ur Specific [place] 1.010 Urine Protein Negative Urine Glucose (UA) [...] Staff - Active Staff] - Print Language: Nigerian Disposition Disposition: Home, Self Care What to do if you have Problems For any increased pain, shortness of breath, bleeding, nausea or vomiting, chestpain, or any unexpected problems, contact your Primary Care Provider. Call [facility] ([phone]) or report tothe closest Emergency Room. Call 911 if necessary. 04/09/25 0244 Cosigner Signature (if applicable): CC: OLE PACE ~ Signed [facility]06-05-2025 Discharge summary Date of Service 04/07/25 Discharge [...] OLE PACE MD When:Within 2-4 days Where:[address] [place] [address] [place] [phone] Follow Up Appointments No qualifying data available. Follow Up Labs/Studies Discharge Labs No Follow-up Labs Discharge Studies No Follow-up Studies Discharge Diet No qualifying data available. Discharge Activity No qualifying data available. Condition on Discharge LEFT AGAINST MEDICAL ADVICE Discharge Disposition LEFT AGAINST MEDICAL ADVICE Information Provided To LEFT AGAINST MEDICAL ADVICE Time Spent 40min Digitally Signed by FRED CABRAJAL MD on 04/07/2025 05:39 PM [facility] HospitalPrqavkum58-62-1699 Urology Progress note Date of Service 04/07/2025 I went to the patient's room to discuss her situation along with my nurse practitioner, Amberly Haque. I told the patient that I am no longer comfortable doing her surgery since she was threatening me and making demands. The patient stated that [facility] has been neglecting her care. The patient then proceeded to remove her IV. The patient stated that she will be going to see [facility] at the [facility]. On multiple occasions the patient stated [...] GONZALEZ SANDERS MD on 04/07/2025 01:05 PM [facility] HospitalScfoeolw98-15-7432 Note Reason for Consultation Admission From: Home No qualifying data available. Skin Team Findings Vitals and Measurements T: 36.6 C (Oral) TMIN: 36.5 C (Oral) TMAX: 36.8 C (Oral) HR: 67 RR: 20 BP: 143/94 SpO2: 96% HT: 165.1 cm WT: 51.8 kg BMI: 19 Pressure Area Details No pressure injuries. Patient has an established nephrostomy. Orders placed in to [facility]. Assessments and Recommendations ------Assessments------ Current Skin/Wound Interventions: [...] Paola Chiang RN on 04/07/2025 11:27 AM [facility]yc[facility]ly45[facility]6514 Urology Consult note Date of Service 04/07/2025 [...] and have her follow up at the [facility]. I strongly advised that she should remain compliant with our recommendations. Apparently, her boyfriend then called the office and raised his voice at my nurse and the patient called the senior escrow officer and said shewants me to do [...] GONZALEZ SANDERS MD on 04/07/2025 09:46 AM [id number] Palliative care Progress note Palliative care consulted [...] SANTINO SAWYER MD on 04/07/2025 09:25 AM [facility] HospitalBdtzdgcl82-52-1936 History and physical note Date of Service [...] BHUPENDRA GALVEZ DO on 04/06/2025 11:09 PM [facility]Ainmvlgw40-98-9199 Note* Exam Date Time Procedure Performing Provider Status 04/06/25 4:45 PM US Renal SCOOBY JOSE MD; Auth (Verified) [id number] ORIGINAL EXAMINATION: ULTRASOUND OF THE KIDNEYS 04/06/2025 [...] Sign Date: 04/06/2025 4:58:12 PM Ordering Provider: [facility]06-04-2025 Note* Exam Date Time Procedure Performing Provider Status 04/06/25 3:46 PM XR Abdomen AP TRICIA ADAMSON DO; Auth (Verified) [id number] ORIGINAL EXAMINATION: ONE SUPINE XRAY VIEW(S) OF [...] Sign Date: 04/06/2025 4:01:45 PM Ordering Provider: [facility]06-04-2025 Hospital Discharge instructions Follow Up Care 04/06/2025 13:04:40 With:OLE PACE MD Address: [address] [place] [address] [place] [address]- [phone] When:2-4 days [facility] 06-04-2025 Evaluation + Plan noteExtracted from: [...] Exchange Appointment Date:05/18/2025 11:20:00 AM Scheduled Provider: Location:MANAGER OF HOSPITAL ONC Appointment Type:SO OV Follow Up Future Scheduled Tests Laboratory* hCG, quantitative (AH/AM Only) 11/15/24 Radiology* IR Nephrostomy Exchange 04/13/25 * IR Nephrostomy Exchange 12/30/24 * CT Renal 03/08/25 * NM Kidney Diuretic 03/08/25 * NM Kidney Diuretic 04/12/25 [facility] 06-03-2025 Discharge summary Date of Service 04/05/2025 Discharge Diagnosis Acute on chronic left-sided abdominal and flank pain Acute urinary traction Chronic left nephrostomy tube Anxiety/depression Acute on chronic cancer-related pain Hospital Course Patient is a 34-year-old female with PMHx Cervical cancer in remission, 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 She presented to [facility] on 04[facility]04[facility]2025 with complaints of left [...] by LIZY PHAM on 04/05/2025 05:25 PM [facility] HospitalNvdhfzjw79-47-6853 Palliative care Progress note Palliative care was [...] SANTINO SAWYER MD on 04/05/2025 01:49 PM [facility] HospitalSxwnjtuf40-09-3256 Urology Consult note Date of Service 04/05/25 [...] 15:44 EDT Digitally Signed by AURA BOWER APRN-ELECTRIC MOTOR TESTER on 04/05/2025 11:56 AM [facility] HospitalRegignhc32-46-4924 Note Reason for Consultation Admission From: Home [...] Paola Chiang RN on 04/05/2025 11:38 AM [facility] HospitalBixkuzaf04-92-4078 History and physical note Date of Service [...] care was recommending that she go to [facility] urology for consideration of reconstructive surgery [...] RHIANNON ARTEAGA MD on 04/04/2025 09:33 PM [facility] HospitalRjwewzjj40-05-3132 Note* Exam Date Time Procedure Performing Provider Status 04/04/25 7:18 PM EKG (ED) - CV NITA RUGGIERO MD; A [facility] (Verified) ECG Final Report SINUS RHYTHM PROBABLE LEFT ATRIAL ENLARGEMENT This EKG was read and contributed directly to the care of the patient Electronic Signature: NITA RUGGIERO MD 04/04/2025 19:44:44 [facility] HospitalFvitcotg41-94-2744 Note* Exam Date Time Procedure Performing Provider Status 04/04/25 3:[address] Abdomen/Pelvis w/o Contrast Isaías BENSON MD; Auth (Verified) [id number] ORIGINAL EXAMINATION: CT OF THE ABDOMEN AND [...] Sign Date: 04/04/2025 4:10:13 PM Ordering Provider: [facility]06-02-2025 Evaluation + Plan noteExtracted from: Title:History and [...] care was recommending that she go to [facility] urology for consideration of reconstructive surgery [...] Exchange Appointment Date:05/18/2025 11:20:00 AM Scheduled Provider: Location:MANAGER OF HOSPITAL ONC Appointment Type:SO OV Follow Up Future Scheduled Tests Laboratory* hCG, quantitative (AH/AM Only) 11/15/24 Radiology* IR Nephrostomy Exchange 04/13/25 * IR Nephrostomy Exchange 12/30/24 * CT Renal 03/08/25 * NM Kidney Diuretic 03/08/25 * NM Kidney Diuretic 04/11/25 [facility] 05-13-2025 Hospital Discharge instructions Patient Education [...] worse Numbness or weakness in a leg [phone] [employer] [address] [place] [address]. All rights reserved. This information is not intended as a substitute for professional medical care. Always follow yourhealthcare professional's instructions. Follow Up Care 03/15/2025 14:38:03 With:OLE PACE MD Address: [address] [place] [phone]- [phone] When:2-4 days [facility] 05-13-2025 Emergency department Discharge summary Discharge Instructions Thank you for allowing [facility] to assist you with your healthcare needs. The following is importantdischarge information regarding your hospital visit. What to Do Next Instructions from Your Care Team No qualifying data available. Post Acute Orders No qualifying data available. You Need to Schedule the Following Appointments Follow Up with OLE PACE MD When:Within 2-4 days Where:[address] [place] [phone]- [phone] Allergies Haldol Tongue swelling Oranges Tongue swelling, [...] worse Numbness or weakness in a leg [phone] [employer] [address] [place] [address], [place] [address]. All rights reserved. This information is not intended as a substitute for professional medical care. Always follow yourhealthcare professional's instructions. Additional Information VACCINATE! IT SAVES LIVES! Members of the community who have not yet received the COVID-19 vaccine and would like to receive it can visit one of [facility] vaccine clinics. There are many vaccine clinic locations within the [facility]. For locations and available times, please visit www.gettheshot.coronavirus.[place].gov/. It is important to note that some COVID mobile vaccine clinics are held outdoors and may be canceled in rainy or stormy conditions. To learn more about pediatric vaccinations (ages 5-11), we invite you to visit the [facility] webpage. https://www.[facility].org/pages/3675-Guihk-Jsflxwmygou-Izmbfynmks-Zrcpy-Sdi stions.htmlTo learn more about the COVID-19 vaccine, we invite you to visit the CDC website for a list of frequently asked questions. https://www.cdc.gov/coronavirus/2019-ncov/vaccines/faq.html [facility] Patient Portal Access Instructions: Stay connected with your healthcare team and access your personal medical information anytime with the [facility] Patient Portal. If you would like a full copy of your medical records please contact the [facility] Medical Records Department Friday through Friday between 8a.m. and 4:30p.m. Please follow the directions below to access the portal: 1.Access the email account you provided upon [facility] to [facility].2.Look for an invitation email from [facility].3.Open the email and access the invitation link: Accept Invitation to [facility]4.Fill in the required quintero to create your account. Sign into [email or web address] with your username and password that you [...] you will allow to register on the [facility] Patient Portal for access to your information. You can also access the [facility] Patient Portal on the Reconnex joya. Simply click on Health Records under Undo Softwareta and then click on the [facility] logo. [...] Call your local pharmacy or go to http://bit.Milabra/8Q2Mn7n to find one close to you.3.Make use of household items: Use cat litter or old coffee grounds to dispose medications if other options arenot available. Mix your drugs with these household products, seal them in an airtight container andthrow it into the garbage. Call [facility]: [phone] to be sure your drugs can be [...] aware that I should contact my doctor. 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 [address] [facility], [place] [address]. All rights reserved. This information is not intended as a substitute for professional medical care. Always follow yourhealthcare professional's instructions. Additional Information VACCINATE! IT SAVES LIVES! Members of the community who have not yet received the COVID-19 vaccine and would like to receive it can visit one of [facility] vaccine clinics. There are many vaccine clinic locations within the [facility]. For locations and available times, please visit www.gettheshot.coronavirus.[place].gov/. It is important to note that some COVID mobile vaccine clinics are held outdoors and may be canceled in rainy or stormy conditions. To learn more about pediatric vaccinations (ages 5-11), we invite you to visit the [facility] webpage. https://www.[facility]ron[facility].org/pages/2120-Bouqc-Ukdptikiecl-Imyjokwmrn-Fqjij-Ocj stions.htmlTo learn more about the COVID-19 vaccine, we invite you to visit the CDC website for a list of frequently asked questions. https://www.cdc.gov/coronavirus/2019-ncov/vaccines/faq.html [facility] Patient Portal Access Instructions: Stay connected with your healthcare team and access your personal medical information anytime with the [facility] Patient Portal. If you would like a full copy of your medical records please contact the [facility] Medical Records Department Friday through Friday between 8a.m. and 4:30p.m. Please follow the directions below to access the portal: 1.Access the email account you provided upon registration to the hospital.2.Look for an invitation email from [facility].3.Open the email and access the invitation link: Accept Invitation to [facility]4.Fill in the required quintero to create your account. Sign into [email or web address] with your username and password that you [...] you will allow to register on the [facility] Patient Portal for access to your information. You can also access the [facility] Patient Portal on the Reconnex joya. Simply click on Health Records under Livemap and then click on the [facility] logo. [...] Call your local pharmacy or go to http://3DiVi Company.Milabra/3O3Sa0x to find one close to you.3.Make use of household items: Use cat litter or old coffee grounds to dispose medications if other options arenot available. Mix your drugs with these household products, seal them in an airtight container andthrow it into the garbage. Call [facility]: [phone] to be sure your drugs can be [...] aware that I should contact my doctor. 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: Date/Time: Relationship to Patient: Witness Name/Signature: Date/Time: [facility] HospitalVvtktxob06-40-0370 Note* Exam Date Time Procedure Performing Provider Status 03/15/25 5:[address] Abd/Pelvis w/ IV Contrast Only RAMO CESAR RUBY DO; Auth (Verified) [id number] ORIGINAL EXAMINATION: CT OF THE ABDOMEN AND [...] Interpreted by: Cesar Chen Preliminary Report By: Csear Chen Electronically signed By Cesar Chen Dictated Date: 03/15/2025 6:02:41 PM Prelim Date: 03/15/2025 6:11:20 PM Sign Date: 03/15/2025 6:11:20 PM Ordering Provider[facility] HospitalOrpigrjb09-40-6367 Hospital Discharge instructions Patient Education 03/09/2025 16:35:01 [...] lost, tell your healthcare provider right away. [phone] [employer] [address] [place] [address], [place] [address]. All rights reserved. This information is not intended as a substitute for professional medical care. Always follow yourhealthcare professional's instructions. Follow Up Care 03/09/2025 12:12:49 With:GONZALEZ SANDERS MD, [facility] Address: [address] [place] [phone]- [phone] When:2-4 days only if needed With:OLE PACE MD Address: [address] [place] [phone]- [phone] When:2-4 days [facility] 05-07-2025 Emergency department Discharge summary Discharge Instructions Thank you for allowing [facility] to assist you with your healthcare needs. The following is importantdischarge information regarding your hospital visit. Diagnosis from Today's Visit Flank pain What to Do Next Instructions from Your Care Team No qualifying data available. Post Acute Orders No qualifying data available. You Need to Schedule the Following Appointments Follow Up with GONZALEZ SANDERS MD, [facility] When:Within 2-4 days, only if needed Where:[address] [place] [phone]- [phone] Follow Up with OLE PACE MD When:Within 2-4 days Where:[address] [place] [phone]- [phone] Allergies Haldol Tongue swelling Oranges Tongue swelling, [...] lost, tell your healthcare provider right away. [phone] [employer] [address] [place] [address]. All rights reserved. This information is not intended as a substitute for professional medical care. Always follow yourhealthcare professional's instructions. Additional Information VACCINATE! IT SAVES LIVES! Members of the community who have not yet received the COVID-19 vaccine and would like to receive it can visit one of [facility] vaccine clinics. There are many vaccine clinic locations within the [facility]. For locations and available times, please visit www.gettheshot.coronavirus.[place].gov/. It is important to note that some COVID mobile vaccine clinics are held outdoors and may be canceled in rainy or stormy conditions. To learn more about pediatric vaccinations (ages 5-11), we invite you to visit the [facility] webpage. https://www.[facility].org/pages/3232-Sdduf-Angbzhrcuaf-Lmdravejag-Oullq-Chy stions.htmlTo learn more about the COVID-19 vaccine, we invite you to visit the CDC website for a list of frequently asked questions. https://www.cdc.gov/coronavirus/2019-ncov/vaccines/faq.html [facility] Patient Portal Access Instructions: Stay connected with your healthcare team and access your personal medical information anytime with the [facility] Patient Portal. If you would like a full copy of your medical records please contact the [facility] Medical Records Department Friday through Friday between 8a.m. and 4:30p.m. Please follow the directions below to access the portal: 1.Access the email account you provided upon registration to the hospital.2.Look for an invitation email from [facility].3.Open the email and access the invitation link: Accept Invitation to [facility]4.Fill in the required quintero to create your account. Sign into [email or web address] with your username and password that you [...] you will allow to register on the [facility] Patient Portal for access to your information. You can also access the [facility] Patient Portal on the Flipora. Simply click on Health Records under Livemap and then click on the [facility] logo. [...] Call your local pharmacy or go to [email or web address] Company.Milabra/4W4Mr1k to find one close to you.3.Make use of household items: Use cat litter or old coffee grounds to dispose medications if other options arenot available. Mix your drugs with these household products, seal them in an airtight container andthrow it into the garbage. Call [facility]: [phone] to be sure your drugs can be [...] aware that I should contact my doctor. 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: Date/Time: Relationship to Patient: Witness Name/Signature: Date/Time: [facility]Jblfzvht49-30-9949 Note* Exam Date Time Procedure Performing Provider Status 03/09/25 3:[address] Renal SCOOBY JOSE MD; Auth (Verified) [id number] ORIGINAL EXAMINATION: CT RENAL 03/09/2025 3:54 pm [...] Date: 03/09/2025 4:13:54 PM Ordering Provider: SHAHBAZ RIZO [facility] HospitalWwydtkqs79-45-2506 Note* Exam Date Time Procedure Performing Provider Status 03/09/25 1:49 PM XR Chest 1 View MARTHA TRIVEDI MD; Auth (Verified) [id number] ORIGINAL EXAMINATION: ONE XRAY VIEW OF THE [...] 03/09/2025 2:07:59 PM Ordering Provider: SHAHBAZ RIZO [facility] HospitalAdrguxjp13-85-8714 Evaluation + Plan noteExtracted from: Title:IR Pre-Procedure [...] 02/14/2025 and can be found in the [facility] ([facility]). Shantelle Herrera PA-C Interventional Radiology Pager: [phone] IR dept: x [phone] Available on [employer] Future Appointments Appointment Date:03/14/2025 01:30:00 PM Scheduled Provider:OLE PACE MD Location:[facility] Palliative Appointment Type:PALL OV Follow Up Appointment Date:05/18/2025 11:20:00 AM Scheduled Provider: Location:MANAGER OF HOSPITAL ONC Appointment Type:SO OV Follow Up Future Scheduled Tests Laboratory* Clostridium difficile (PCR) 03/04/24 * Ova + Parasite Exam 03/04/24 * hCG, quantitative (AH/AM Only) 11/15/24 Radiology* IR Nephrostomy Exchange 12/30/24 [facility] 04-16-2025 Hospital Discharge instructions Patient Education 02/16/2025 10:11:22 Radiology- Nephrostomy/Nephroureteral Tube Exchange 12/26/2022 (Custom) ESPARTO Nephrostomy/Nephroureteral Tube Exchange Discharge Instructions Interventional Radiology [facility] Imaging Services [address] [place] [address] The procedure that you had done today [...] the feeling of the need to urinate. Xtmu-rhu-dcuhqec pain medication should be used for pain [...] the gauze. Supp[facility] be obtained at: [facility] [address] [facility] [address] [facility] Any questions or concerns, please contact your physician or Interventional Radiology at [phone] from 8-4:30pm Friday-Friday. If you do not have a follow up appointment scheduled at the time of discharge, please call Interventional Radiology at the number listed above. Follow Up Care 12/22/2024 11:44:53 With:PINA PANTOJA APRN-[facility] Address: [address] [place] [address] [place] [address]- [phone] When: Unknown Comments:Schedule appointment as soon as possible [facility] 04-16-2025 Note* Bita Frias: SIGN, AUTHOR, SIGN, AUTHOR, PERFORM Event Display: IR Procedure Record Authored Date: [id number] IR Procedure Record Summary Primary Physician: Finalized Date/Time: 02/16/25 09:07:22 Pt. Name: LALY NAVAS Austen Mittal/Sex: 1990 Female Med Rec #: [id number] Physician: Financial #: [id number] Pt. Type: S Room/Bed: [facility]/A Admit/Disch: 02/16/25 06:14:49 - Institution: Allergies identified [...] Case Attendee Bita Frias JEFFREY MD EYRING, FRED S CATHOLIC PRIEST-HUMANITIES PROFESSOR Role Performed Elastic Attacher Zigzag 1 Anesthesiologist HUMANITIES PROFESSOR Details Time In 02/16/25 08:10:00 02/16/25 08:10:00 [...] 12 mL Medication CONTRAST ISOVUE 300/30ML 10/CA [id number] Radiology Flouroscopy Fluoroscopy Used? Yes Fluoro Dose (mGy) 3 Fluoro Time 1.2 min Radiology Local Local Used? Yes Local Type: lido 2% Local Dose 3 ml Radiology Procedure Site Site/Location lt flank Site Condition No complications Suture 2.0 Ethibond Suture Dressing Type Gauze sponge 4 X 4, Bioclusive 4 X 5 Technologist Notes [id number] lt neph tube exchange Last Modified By: [...] Out Padmini [place] Relevant images and Tech, [place], [place] results are properly L, Bita Frias labeled and LACHO Metz JEFFREY MD, appropriately FRED ZAYAS displayed, Alcohol CATHOLIC PRIEST-Nirav ESPINOZA Hannah based prep dry RN Instrument [...] Radiology - Action Plan Outcomes Met? Yes Senior Network Engineer Marisa Gastelum RN Completing Procedure Plan Last Modified By: Bita Frias 02/16/25 08:35:44 Case Comments <None> Finalized By: Bita Frias Document Signatures Signed By: Bita Frias 02/16/25 09:05 Bita Frias 02/16/25 09:07 [facility] 04-16-2025 Summary of episode note Discharge Instructions Thank you for allowing [facility] to assist you with your healthcare needs. The following is importantdischarge information regarding your hospital visit. Your Care Team OLE PACE MD What to do next Scheduled Follow-Up Appointments Appointment Type When With Where Contact Information StatusPALL OV Follow Up 03/14/2025 01:30 PM EDT OLE PACE MD Palliative Care Confirmed SO OV Follow Up 05/18/2025 11:20 AM EDT [facility] [address] [place] [address] Confirmed Follow Up Appointments Follow Up with PINA PANTOJA APRN-ELECTRIC MOTOR TESTER Where:[address] [place] [address] [place] [address]- [phone] Additional Information: Schedule appointment as soon as [...] medication providers or retail pharmacies. Education Materials ESPARTO Nephrostomy/Nephroureteral Tube Exchange Discharge Instructions Interventional Radiology [facility] [address] [place] [address] The procedure that you had done today [...] the feeling of the need to urinate. Sqki-mic-brrkkoo pain medication should be used for pain [...] the gauze. Supplies may be obtained at: [facility] [address] [facility] [address] [facility] Any questions or concerns, please contact your physician or Interventional Radiology at [phone] from 8-4:30pm Friday-Friday. If you do not have a follow up appointment scheduled at the time of discharge, please call Interventional Radiology at the number listed above. Additional Information VACCINATE! IT SAVES LIVES! Members of the community who have not yet received the COVID-19 vaccine and would like to receive it can visit one of [facility] vaccine clinics. There are many vaccine clinic locations within the [facility]. For locations and available times, please visit https://gettheshot.coronavirus.[place].gov/. It is important to note that some COVID mobile vaccine clinics are held outdoors and may be canceled in rainy or stormy conditions. To learn more about pediatric vaccinations (ages 5-11), we invite you to visit the [facility] webpage. https://www.Panopticon Laboratoriess.org/pages/1955-Apivj-Cykwmhqhihd-Injcdiggvm-Ehiek-Vls stions.htmlTo learn more about the COVID-19 vaccine, we invite you to visit the CDC website for a list of frequently asked questions.https://www.cdc.gov/coronavirus/2019-ncov/vaccines/faq.html [facility] Patient Portal Access Instructions: Stay connected with your healthcare team and access your personal medical information anytime with the [facility] Patient Portal. Please follow the directions below to create your [facility] account: 1.Access the email account you provided upon registration to the hospital/physician office.2.Look for an invitation email from [facility].3.Open the email and access the invitation link: AcceptInvitation to [facility].4.Fill in the required quintero to create your account. To access your account, visit ArcMail/ADEA [employer]. Click the blue button labeled Access Patient [...] who you will allowto register on the [facility] Patient Portal for access to your information. You can also access the [facility] on the [facility] joya. Simply click on Patient Portal and then log into your account. If you would like to receive a full copy of your medical records, please contact the [facility] Medical Records Department by calling [phone], Friday through Friday between 8 a.m. and [...] Call your local pharmacy or go to [email or web address] to find one close to you.3.Make use of household items: Use cat litter or old coffee grounds to dispose medications if other options arenot available. Mix your drugs with these household products, seal them in an airtight container andthrow it into the garbage. Call [facility]: [phone] to be sure your drugs can be [...] aware that I should contact my doctor. 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 Percutaneous left nephrostomy tube exchange with fluoroscopy CLINICAL STATEMENT: History of cervical cancer with left ureteral obstruction MAINTAINER CENTRAL OFFICE: Tadeo Leija PA-C MATERIALS: 12 Fr X [...] using 2 identifiers, confirming site and side. Demand Generator Manager image with contrast injection demonstrates stable appearance [...] Sign Date: 02/16/2025 4:47:28 PM Ordering Provider: [facility]04-16-2025 Note IR Procedure Record Summary Primary Physician: Finalized Date/Time: 02/16/25 09:07:22 Pt. Name: ILEANA NAVASAusten Mittal/Sex: 1990 Female Med Rec #: [id number] Physician: Financial #: [id number] Pt. Type: S Room/Bed: [facility]/A Admit/Disch: 02/16/25 06:14:49 - Institution: Allergies identified [...] Bita Frias JEFFREY MD EYRING, ERIK S APRN-HUMANITIES PROFESSOR Role Performed Elastic Attacher Zigzag 1 Anesthesiologist HUMANITIES PROFESSOR Details Time In 02/16/25 08:10:00 02/16/25 08:10:00 [...] 12 mL Medication CONTRAST ISOVUE 300/30ML 10/CA 555162 Radiology Flouroscopy Fluoroscopy Used? Yes Fluoro Dose (mGy) 3 Fluoro Time 1.2 min Radiology Local Local Used? Yes Local Type: lido 2% Local Dose 3 ml Radiology Procedure Site Site/Location lt flank Site Condition No complications Suture 2.0 Ethibond Suture Dressing Type Gauze sponge 4 X 4, Bioclusive 4 X 5 Technologist Notes [id number] lt neph tube exchange Last Modified By: [...] Out Padmini Fairchild Relevant images and Tech, [place], [place] results are properly L, Bita Frias labeled and LACHO Metz JEFFREY MD, appropriately FRED ZAYAS displayed, Alcohol CATHOLIC PRIEST-Nirav ESPINOZA Hannah based prep dry RN Instrument [...] Radiology - Action Plan Outcomes Met? Yes Senior Network Engineer Marisa Gastelum RN Completing Procedure Plan Last Modified By: Bita Frias 02/16/25 08:35:44 Case Comments Finalized By: Bita Frias Document Signatures Signed By: Bita Frias 02/16/25 09:05 Bita Frias 02/16/25 09:07 [facility] HospitalFfafkrov25-16-0576 Procedure note IR Brief Post Procedure Note [...] follow. Tadeo Leija PA-C Interventional Radiology Pager: [phone] IR dept: [phone] Available on [employer] Digitally Signed by TADEO LEIJA PA-C on 02/16/2025 09:00 AM [facility] HospitalBaqythwf86-89-0448 Anesthesiology Consult note Patient: LALY NAVAS Age: [...] for anxiety, # 90 tab(s),2 Refill(s), Pharmacy: [facility] Palliative care patient THO (generalized anxiety disorder), 167.6, cm, 12/22/24 8:11:00 EST, Height, 53.6, kg, ... Lexapro 20 mg oral tablet: Dose : 20 mg = 1 tab(s), Oral, qDay, # 30 tab(s), 5 Refill(s), Pharmacy[facility] 167.6, cm, 12/22/24 8:11:00 EST, Height, kg, 12/22/24 8:11:00 EST,Dosing Weight ondansetron 4 mg oral tablet: Dose : 4 mg = 1 tab(s), Oral, BID, TAKE ONE TABLET BY MOUTH EVERY 8 HOURS NEEDED FOR NAUSEA AND VOMITING, # 60 tab(s), 2 Refill(s), Pharmacy: [facility] 167.6, cm, 11/15/24 8:43:00 EST, Height, kg, 10/13/24 6:49:00 EST, Dosing... oxyCODONE 5 mg oral tablet ( IMMEDIATE release ): Dose : 10 mg = 2 tab(s), Oral, q6h, PRN for pain,# 240 tab(s), 0 Refill(s), Pharmacy: [facility] Cervical ca Cancer related pain, 167.6, [...] Problem list: Medical Anxiety / SNOMED CT 54258584 / Confirmed Asthma / SNOMED CT 650446315 / Confirmed Decreased appetite / SNOMED CT 010312590 / Confirmed Dehydration / SNOMED CT 89547897 / Confirmed Bilateral flank pain / SNOMED CT 183231511 / Confirmed History of chemotherapy / SNOMED CT 6590479277 / Confirmed Hx of cervical cancer / SNOMED CT 6803480787 / Confirmed History of radiation therapy / SNOMED CT 6912970785 / Confirmed Hydronephrosis, left / SNOMED CT 42598697 / Confirmed Acute kidney injury / SNOMED CT 17020738 / Confirmed Left flank pain / SNOMED CT 929886030 / Confirmed Cervical cancer / SNOMED CT 468692270 / Confirmed Moderate protein-calorie malnutrition / SNOMED CT 060518332 / Confirmed Nausea and vomiting / SNOMED CT 81962457 / Confirmed Cancer related pain / SNOMED CT 7556605124 / Confirmed DVT prophylaxis / SNOMED CT 434388604 / Confirmed Palliative care encounter / SNOMED CT 796340205 / Confirmed Premature menopause / SNOMED CT 9429234521 / Confirmed Pyelonephritis / SNOMED CT 99069428 / Confirmed Nephrostomy status / SNOMED CT 227903378 / Confirmed Obstructive uropathy / SNOMED CT 98118793 / Confirmed Resolved: Chronic kidney disease, stage 3 (moderate) / SNOMED CT 1864017013 Resolved: Port-A-Cath in place / SNOMED CT 3975396298 Resolved: History of COVID-19 / SNOMED CT 0186637731 Resolved: Hydronephrosis of left kidney / SNOMED CT 71062723 Resolved: ESBL (extended spectrum beta-lactamase) producing bacteria infection / SNOMED CT 6246737574 Resolved: ESBL (extended spectrum beta-lactamase) producing bacteria infection / SNOMED CT 4300174419 Resolved: Cervicitis / SNOMED CT 416349968 Resolved: Mass of cervix / SNOMED CT 303907553 Resolved: Encounter for antineoplastic chemotherapy / SNOMED CT 901308658 Resolved: Tinnitus / SNOMED CT 965255384 Resolved: Complicated UTI (urinary tract infection) / SNOMED CT 861192440 Canceled: Cervical cancer / SNOMED CT 1495896002 Canceled: Dysuria / SNOMED CT 35659364 Canceled: Flank pain / SNOMED CT 669665639 Canceled: Hydronephrosis / SNOMED CT 08118803 Canceled: Cervical cancer / SNOMED CT 043337101 Canceled: Cervical ca / SNOMED CT 797153897 Canceled: Secondary amenorrhea / SNOMED CT 616764557 Canceled: Nephrostomy status / SNOMED CT 951005638, Active Problems (34) Acid reflux Acute kidney [...] ESBL (extended spectrum beta-lactamase) producing bacteria infection (6743570372): Onset on 02/23/2023 at 32 years. Resolved on 05/07/2023 at 32 years. ESBL (extended spectrum beta-lactamase) producing bacteria infection (7619411887): Onset on 08/09/2022 at 31 years. Resolved on 01/02/2023 at 32 years. Comments: 01/02/2023 SUMEET 10:02 JAMAL Haynes Tino Removed ESBL disease alert from 08/2022 per infection control protocol on 01/02/23. Mass of cervix (156881006): Resolved. Chronic kidney disease, stage 3 (moderate) (0321263644): Resolved. Hydronephrosis of left kidney (77040191): Resolved. Cervicitis (478737841): Resolved. Encounter for antineoplastic chemotherapy (154898222): Resolved. Port-A-Cath in place (8819726571): Resolved. Tinnitus (920068254): Resolved. Complicated UTI (urinary tract infection) (429570137): Resolved. History of COVID-19 (7771867950): Resolved. Family History: Cancer Sister COPD - Chronic obstructive pulmonary disease Mother Father Kidney stone Mother Asthma Mother Breast cancer Mother Hypertension Mother Heart disease Mother Substance abuse Father Alcohol abuse Father Stroke Grandparent Father Malignant tumor of ovary Sister Heart attack Mother Diabetes Grandparent Procedure history: Nephrostomy using fluoroscopic guidance (4459591417) on 06/16/2024 at 33 Years. Comments: 06/21/2024 11:46 aFny Beard LPN left JJ stent ([id number]) on 06/16/2024 at 33 Years. Comments: 06/21/2024 11:47 Fany Beard LPN left Nephrostomy tube (790779183) on 10/05/2023 at 32 Years. Comments: 11/19/2023 9:37 Fany Sanchez LPN left side Nephrostomy with tube drainage (75480453) in the month of 07/2023 at 32 Years. Comments: 06/13/2020 10:09 JAMAL Guaman left Nephrostomy with tube drainage (96244733) on 01/10/2021 at 30 Years. Cannulation of Portacath (951954635) in 2020 at 30 Years. Comments: 06/13/2020 10:09 JAMAL Guaman right JJ stent ([id number]) on 11/15/2020 at 29 Years. Radiation (836408409) in the month of 06/2020 at 29 Years. Comments: 06/26/2020 6:12 GINNY Burton RN Mayi A via tandems and oviod X2 Cervical biopsy (99574168) in 2019 at 29 Years. Comments: 04/12/2020 18:25 Eri Conte RN pt states she had a cervical biopsy done on 04/07/2020 at [facility] for a cervical mass Tumor cells, benign (01377955) in 2001 at 11 Years. 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 done at [facility] [place] Social History: Social & Psychosocial Habits Alcohol [...] Signs (last 24 hrs) Last Charted Temp Qoqdwajc69.9 DegC (FEB 16 06:37) NTV158 mmHg (FEB 16 06:37) DBP79 mmHg (FEB 16 06:37) Measurements from flowsheet : Measurements 02/16/2025 6:37 EDT Height 167.6 cm Height in inches 66 inch(es) Admission Weight 110.7 kg Weight Lbs 243.5 lb Weight Method Actual [place] Body Weight 59.26 kg Type of Scale [...] Documentation reviewed: Current records. Assessment and Plan [place] [employer] Anesthesiologists (ASA) physical status classification: Class II. Anesthetic Preoperative Plan Premedication: intravenous. Anesthetic technique: General. Induction: intravenously. Maintenance airway: Oral endotracheal tube. Postoperative pain management: Per surgeon. Informed consent: signed by patient. Digitally Signed by OLE MONK MD on 02/16/2025 08:05 AM [facility] HospitalSwdtlmdb73-66-6204 History and physical note IR PREPROCEDURE H&P [...] 02/14/2025 and can be found in the [facility] ([place]). Shantelle Herrera PA-C Interventional Radiology Pager: [phone] IR dept: [phone] Available on [employer] Digitally Signed by SHANTELLE HERRERA PA-C on 02/16/2025 07:50 AM Digitally Signed by MADELINE APARICIO MD on 02/16/2025 08:12 AM [facility] HospitalLcswmqqq31-55-7985 Hospital Discharge instructions Patient Education 12/22/2024 12:16:43 Radiology- Nephrostomy/Nephroureteral Tube Exchange 12/26/2022(CUSTOM) ESP[facility]O Nephrostomy/Nephroureteral Tube Exchange Discharge Instructions Interventional Radiology [facility] Imaging Services [address] [place] [address] The procedure that you had done today [...] the feeling of the need to urinate. Zvli-vdz-pejyelt pain medication should be used for pain [...] the gauze. Supplies may be obtained at: [facility] [address] [facility] [address] [facility] Any questions or concerns, please contact your physician or Interventional Radiology at [phone] from 8-4:30pm Friday-Friday. If you do not have a follow up appointment scheduled at the time of discharge, please call Interventional Radiology at the number listed above. 12/22/2024 12:16:34 Radiology- Port Removal 08/13/2024(CUSTOM) ESPARTO Port Removal Discharge Instructions Interventional Radiology [facility] Imaging Services [address] [place] [address] Your physician has requested that you have [...] for 7 days. Special instructions: PAIN CONTROL: Utzl-ugz-tukxabf pain medication should be used for pain [...] instruction below: 8:00 am- 5:00 pm call [phone] After 24 hours, contact the physician who ordered this procedure for you. Additional Instructions: Follow Up Care 12/09/2024 13:25:55 With:OLE PACE MD Address: [address] [place] [phone] When: Unknown Comments:Call with any questions or concerns [facility] 02-19-2025 Evaluation + Plan noteExtracted from: [...] 12/13/24 and can be found in the [facility] ([facility]). Lacey Loera PA-C Interventional Radiology IR Dept [id number] Available on [employer] Future Appointments Appointment Date:01/05/2025 12:30:00 PM Scheduled Provider: Location:IR Appointment Type:IR Procedure Follow Up Appointment Date:01/17/2025 03:00:00 PM Scheduled Provider:OLE PACE MD Location:[facility] Palliative Appointment Type:PALL OV Follow Up Appointment Date:02/16/2025 08:00:00 AM Scheduled Provider: Location:IR Appointment Type:IR Nephrostomy Exchange Appointment Date:05/18/2025 11:20:00 AM Scheduled Provider: Location:[facility] OF HOSPITAL ONC Appointment Type:SO OV Follow Up Future Scheduled Tests Laboratory* Clostridium difficile (PCR) 03/04/24 * Ova + Parasite Exam 03/04/24 * hCG, quantitative (AH/AM Only) 11/15/24 Radiology* IR Nephrostomy Exchange 02/16/25 * IR Procedure Follow Up 01/05/25 [facility] 02-19-2025 Summary of episode note Discharge Instructions Thank you for allowing [facility] to assist you with your healthcare needs. The following is importantdischarge information regarding your hospital visit. Your Care Team OLE PACE MD What to do next Scheduled Follow-Up Appointments Appointment Type When With Where Contact Information StatusIR Procedure Follow Up 01/05/2025 12:30 PM EST IR Confirmed PALL OV Follow Up 01/17/2025 03:00 PM EDT OLE PACE MD [facility] Confirmed IR Nephrostomy Exchange 02/16/2025 08:00 AM EDT IR Confirmed SO OV Follow Up 05/18/2025 11:20 AM EDT [facility] [address] [place] [phone] Confirmed Follow Up Appointments Follow Up with OLE PACE MD Where:[address] [place] [address] [place] [phone] Additional Information: Call with any questions or [...] medication providers or retail pharmacies. Education Materials ESPARTO Nephrostomy/Nephroureteral Tube Exchange Discharge Instructions Interventional Radiology [facility] Imaging Services [address] [facility] [address] The procedure that you had done today [...] the feeling of the need to urinate. Xiri-vlr-rcdwhng pain medication should be used for pain [...] the gauze. Supplies may be obtained at: [facility] [address] [facility] [address] [facility] Any questions or concerns, please contact your physician or Interventional Radiology at [phone] from 8-4:30pm Friday-Friday. If you do not have a follow up appointment scheduled at the time of discharge, please call Interventional Radiology at the number listed above. ESPARTO Port Removal Discharge Instructions Interventional Radiology [facility] Services [address] [place] [address] Your physician has requested that you have [...] for 7 days. Special instructions: PAIN CONTROL: Yota-crq-zduendt pain medication should be used for pain [...] instruction below: 8:00 am- 5:00 pm call [phone] After 24 hours, contact the physician who ordered this procedure for you. Additional Instructions: Additional Information VACCINATE! IT SAVES LIVES! Members of the community who have not yet received the COVID-19 vaccine and would like to receive it can visit one of [facility] vaccine clinics. There are many vaccine clinic locations within the [facility]. For locations and available times, please visit [email or web address].coronavirus.[place].gov/. It is important to note that some COVID mobile vaccine clinics are held outdoors and may be canceled in rainy or stormy conditions. To learn more about pediatric vaccinations (ages 5-11), we invite you to visit the [facility] webpage. [email or web address].[email or web address]/[email or web address]-Krxszoqbpx-[email or web address] [email or web address].htmlTo learn more about the COVID-19 vaccine, we invite you to visit the CDC website for a list of frequently asked questions.https://www.cdc.gov/coronavirus/2019-ncov/vaccines/faq.html [facility] Patient Portal Access Instructions: Stay connected with your healthcare team and access your personal medical information anytime with the [facility] Patient Portal. Please follow the directions below to create your Authernative account: 1.Access the email account you provided upon registration to the hospital/physician office.2.Look for an invitation email from [facility].3.Open the email and access the invitation link: AcceptInvitation to [facility].4.Fill in the required quintero to create your account. To access your account, visit [email or web address]. Click the blue button labeled Access Patient [...] who you will allowto register on the [facility] Patient Portal for access to your information. You can also access the [facility] Patient Portal on the [facility] joya. Simply click on Patient Portal and then log into your account. If you would like to receive a full copy of your medical records, please contact the [facility] Medical Records Department by calling [phone], Friday through Friday between 8 a.m. and [...] Call your local pharmacy or go to [email or web address] to find one close to you.3.Make use of household items: Use cat litter or old coffee grounds to dispose medications if other options arenot available. Mix your drugs with these household products, seal them in an airtight container andthrow it into the garbage. Call [facility]: [phone] to be sure your drugs can be [...] aware that I should contact my doctor. 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 Tip curled within left renal [...] the procedure including risks, benefits, and alternatives. Payne protocol was observed. Sterile gowns, masks, hats and gloves utilized for maximal sterile barrier. FINDINGS: Antegrade nephrostogram demonstrates satisfactory position of previously placed left nephrostomy tube. Postprocedure images demonstrate new nephrostomy catheter with tip curled within decompressed left renal pelvis. No complication suggested. IMPRESSION: Maintenance exchange of previously placed left nephrostomy tube for new 12 Afghan nephrostomy catheter via previously established tract with tip curled in decompressed left renal pelvis. No complication suggested. Interpreted by: Clotilde Randhawa DO Preliminary Report By: Clotilde Randhawa DO Electronically signed By Clotilde Randhawa DO Dictated Date: 12/22/2024 3:54:55 PM Prelim Date: 12/22/2024 3:57:35 PM Sign Date: 12/22/2024 3:57:35 PM Ordering Provider: [facility]02-19-2025 Procedure note Date of Service INTERVENTIONAL RADIOLOGY POST PROCEDURE NOTE Pre-Procedure Diagnosis: [left nephrostomy tube maintenance exchange, iv access port removal / no further need for port] Post Procedure Diagnosis: Same. Tanker Driver: Dr. Clotilde Randhawa DO Procedure: [left nephrostomy [...] CLOTILDE RANDHAWA DO on 12/22/2024 11:10 AM [facility] HospitalGntmweyb10-79-3578 Note* Exam Date Time Procedure Performing Provider Status 12/22/24 10:40 AM IR Port Removal CLOTILDE RANDHAWA DO; Auth (Verified) [id number] ORIGINAL PROCEDURE: IR REMOVAL OF TUNNELED CATHETER [...] the procedure including risks, benefits, and alternatives. Payne protocol was observed. Sterile gowns, masks, hats [...] 12/22/2024 3:59:55 PM Ordering Provider: NASRIN ISABEL [facility] [id number] History and physical note IR PREPROCEDURE H&P [...] 12/13/24 and can be found in the [facility] ([employer]). Lacey Loera PA-C Interventional Radiology IR Dept [id number] Available on [employer] Digitally Signed by LACEY LOERA PA-C on 12/22/2024 09:52 AM Digitally Signed by CLOTILDE RANDHAWA DO on 12/22/2024 12:44 PM [facility] HospitalVfovawsa95-70-8370 Anesthesiology Consult note Patient: LALY NAVAS Age: [...] Problem list: Medical Anxiety / SNOMED CT 70338286 / Confirmed Asthma / SNOMED CT 411505484 / Confirmed Decreased appetite / SNOMED CT 994022261 / Confirmed Dehydration / SNOMED CT 91987408 / Confirmed Bilateral flank pain / SNOMED CT 291391117 / Confirmed History of chemotherapy / SNOMED CT 4262955397 / Confirmed Hx of cervical cancer / SNOMED CT 7025705294 / Confirmed History of radiation therapy / SNOMED CT 8996804926 / Confirmed Hydronephrosis, left / SNOMED CT 53905918 / Confirmed Acute kidney injury / SNOMED CT 89197812 / Confirmed Left flank pain / SNOMED CT 480849266 / Confirmed Cervical cancer / SNOMED CT 489300765 / Confirmed Moderate protein-calorie malnutrition / SNOMED CT 477278220 / Confirmed Nausea and vomiting / SNOMED CT 31510012 / Confirmed Cancer related pain / SNOMED CT 9860635611 / Confirmed DVT prophylaxis / SNOMED CT 208411372 / Confirmed Palliative care encounter / SNOMED CT 095518995 / Confirmed Premature menopause / SNOMED CT 4671803476 / Confirmed Pyelonephritis / SNOMED CT 40305572 / Confirmed Nephrostomy status / SNOMED CT 275944561 / Confirmed Obstructive uropathy / SNOMED CT 65184200 / Confirmed Resolved: Chronic kidney disease, stage 3 (moderate) / SNOMED CT 8402579623 Resolved: Port-A-Cath in place / SNOMED CT 1908593295 Resolved: History of COVID-19 / SNOMED CT 1506262015 Resolved: Hydronephrosis of left kidney / SNOMED CT 92471782 Resolved: ESBL (extended spectrum beta-lactamase) producing bacteria infection / SNOMED CT 1728653646 Resolved: ESBL (extended spectrum beta-lactamase) producing bacteria infection / SNOMED CT 5394431110 Resolved: Cervicitis / SNOMED CT 576567963 Resolved: Mass of cervix / SNOMED CT 981767567 Resolved: Encounter for antineoplastic chemotherapy / SNOMED CT 069546694 Resolved: Tinnitus / SNOMED CT 298398598 Resolved: Complicated UTI (urinary tract infection) / SNOMED CT 188398425 Canceled: Cervical cancer / SNOMED CT 7045641640 Canceled: Dysuria / SNOMED CT 64267043 Canceled: Flank pain / SNOMED CT 749646031 Canceled: Hydronephrosis / SNOMED CT 42514073 Canceled: Cervical cancer / SNOMED CT 006217256 Canceled: Cervical ca / SNOMED CT 209862494 Canceled: Secondary amenorrhea / SNOMED CT 653754908 Canceled: Nephrostomy status / SNOMED CT 423692377, Active Problems (33) Acid reflux Acute kidney [...] ESBL (extended spectrum beta-lactamase) producing bacteria infection (8160878668): Onset on 02/23/2023 at 32 years. Resolved on 05/07/2023 at 32 years. ESBL (extended spectrum beta-lactamase) producing bacteria infection (8796410164): Onset on 08/09/2022 at 31 years. Resolved on 01/02/2023 at 32 years. Comments: 01/02/2023 SUMEET 10:02 JAMAL Haynes Removed ESBL disease alert from 08/2022 per infection control protocol on 01/02/23. Mass of cervix (274143383): Resolved. Chronic kidney disease, stage 3 (moderate) (7011592925): Resolved. Hydronephrosis of left kidney (61003501): Resolved. Cervicitis (291663043): Resolved. Encounter for antineoplastic chemotherapy (944889548): Resolved. Port-A-Cath in place (1555400330): Resolved. Tinnitus (530234618): Resolved. Complicated UTI (urinary tract infection) (018601602): Resolved. History of COVID-19 (5346923292): Resolved. Procedure history: Nephrostomy using fluoroscopic guidance ([id number]) on 06/16/2024 at 33 Years. Comments: 06/21/2024 11:46 Fany Beard LPN left JJ stent ([id number]) on 06/16/2024 at 33 Years. Comments: 06/21/2024 11:47 Fany Beard LPN left Nephrostomy tube ([id number]) on 10/05/2023 at 32 Years. Comments: 11/19/2023 9:37 Fany Sanchez LPN left side Nephrostomy with tube drainage ([id number]) in the month of 07/2023 at 32 Years. Comments: 06/13/2020 10:09 JAMAL Guaman left Nephrostomy with tube drainage ([id number]) on 01/10/2021 at 30 Years. Cannulation of Portacath ([id number]) in 2020 at 30 Years. Comments: 06/13/2020 10:09 JAMAL Guaman right JJ stent ([id number]) on 11/15/2020 at 29 Years. Radiation ([id number]) in the month of 06/2020 at 29 Years. Comments: 06/26/2020 6:12 GINNY Burton RN Mayi A via tandems and oviod X2 Cervical biopsy ([id number]) in 2019 at 29 Years. Comments: 04/12/2020 18:25 Eri Conte RN pt states she had a cervical biopsy done on 04/07/2020 at [facility] for a cervical mass Tumor cells, benign ([id number]) in 2001 at 11 Years. 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 done at [facility] [place] Social History: Social & Psychosocial Habits Alcohol [...] Signs (last 24 hrs) Last Charted Temp Oucnzaho88.4 DegC (DEC 22 08:08) Heart Rate ApicalL 57 bpm (DEC 22 08:08) LEY938 mmHg (DEC 22 08:08) DBP80 mmHg (DEC 22 08:08) Measurements from flowsheet : Measurements 12/22/2024 8:08 EST Height 167.6 cm Height in inches 66 inch(es) Admission Weight 53.6 kg Weight Lbs 117.9 lb [place] Body Weight 59.26 kg Admission Body Mass [...] Documentation reviewed: Current records. Assessment and Plan [place] Society of Anesthesiologists (ASA) physical status classification: Class III. Anesthetic Preoperative Plan Premedication: intravenous. Anesthetic technique: General. Induction: intravenously. Maintenance airway: Oral endotracheal tube. Postoperative pain management: Per surgeon. Risks discussed: nausea, vomiting, sore throat, dental injury, hypotension, allergic reaction, serious complications. Informed consent: signed by patient. Digitally Signed by NOEMI AYALA MD on 12/22/2024 09:03 AM [id number] Discharge instructions Patient Education 08/11/2024 12:13:30 Radiology- Nephrostomy/Nephroureteral Tube Exchange 12/26/2022(CUSTOM) ESPARTO Nephrostomy/Nephroureteral Tube Exchange Discharge Instructions Interventional Radiology [facility] Services [address] [place] [address] The procedure that you had done today [...] the feeling of the need to urinate. Xzxw-ifg-ljfassh pain medication should be used for pain [...] gauze. Supplies may be obtained at: [facility] [address] [facility] [address] [facility] Any questions or concerns, please contact your physician or Interventional Radiology at [phone] from 8-4:30pm Friday-Friday. If you do not have a follow up appointment scheduled at the time of discharge, please call Interventional Radiology at the number listed above. [facility] 10-09-2024 Evaluation + Plan noteExtracted from: [...] 07/19/2024 and can be found in the [facility] ([facility]). Sky Newsome PA-C Interventional Radiology Pager: [phone] IR dept: x [phone] Available on [employer] Future Appointments Appointment Date:08/16/2024 09:00:00 AM Scheduled Provider:OLE PACE MD Location:[facility] Appointment Type:PALL OV Follow Up Future Scheduled Tests Laboratory* Clostridium difficile (PCR) 03/04/24 * Ova + Parasite Exam 03/04/24 Radiology* IR Nephrostomy Tube Change Lt Guide 09/04/23 [facility] 10-09-2024 Note* Juana Wilhelm RN: SIGN, AUTHOR, SIGN, AUTHOR, PERFORM Event Display: IR Procedure Record Authored Date: [id number] IR Procedure Record Summary Primary Physician: Finalized Date/Time: 08/11/24 10:35:27 Pt. Name: LALY NAVAS D.O.B./Sex: 1990 Female Med Rec #: [id number] Physician: Financial #: [id number] Pt. Type: S Room/Bed: [facility] Admit/Disch: 08/11/24 07:53:56 - Institution: Allergies [...] Attendee GARTH GOSS MD, Brandon L Allen, OrchestratorMendel Edwards Role Performed Procedure Surgeon Scrub Technologist [...] Case Attendee Juana Wilhelm RN, ADAM A APRN-HUMANITIES PROFESSOR Role Performed Procedure Nurse HUMANITIES PROFESSOR Details Time In 08/11/24 09:58:00 08/11/24 09:58:00 [...] Team Members GARTH GOSS MD, Verifying Sterility [place] L Procedure IR Nephrostomy Exchange (SN) Last [...] Radiology - Action Plan Outcomes Met? Yes Senior Network Engineer Juana Wilhelm RN Completing Procedure Plan Last Modified By: Juana Wilhelm RN 08/11/24 09:41:12 Case Comments <None> Finalized By: Juana Wilhelm RN Document Signatures Signed By: Juana Wilhelm RN 08/11/24 10:35 Juana Wilhelm RN 08/11/24 10:35 [facility] 10-09-2024 Summary of episode note Discharge Instructions Thank you for allowing [facility] to assist you with your healthcare needs. The following is importantdischarge information regarding your hospital visit. Your Care Team OLE PACE MD What to do next Scheduled Follow-Up Appointments Appointment Type When With Where Contact Information StatusPALL OV Follow Up 08/16/2024 09:00 AM EDT OLE PACE MD [facility] Confirmed Allergies Haldol Tongue swelling [...] medication providers or retail pharmacies. Education Materials ESPARTO Nephrostomy/Nephroureteral Tube Exchange Discharge Instructions Interventional Radiology [facility] [address] [place] [address] The procedure that you had done today [...] the feeling of the need to urinate. Raoc-xzs-ieehcdn pain medication should be used for pain [...] the gauze. Supplies may be obtained at: [facility] [address] [facility] [address] [facility] Any questions or concerns, please contact your physician or Interventional Radiology at [phone] from 8-4:30pm Friday-Friday. If you do not have a follow up appointment scheduled at the time of discharge, please call Interventional Radiology at the number listed above. Additional Information VACCINATE! IT SAVES LIVES! Members of the community who have not yet received the COVID-19 vaccine and would like to receive it can visit one of [facility] vaccine clinics. There are many vaccine clinic locations within the [facility]. For locations and available times, please visit [email or web address] It is important to note that some COVID mobile vaccine clinics are held outdoors and may be canceled in rainy or stormy conditions. To learn more about pediatric vaccinations (ages 5-11), we invite you to visit the [facility] webpage. [email or web address]/[email or web address]-[email or web address]-[email or web address] stions.htmlTo learn more about the COVID-19 vaccine, we invite you to visit the CDC website for a list of frequently asked questions.https://www.cdc.gov/coronavirus/2019-ncov/vaccines/faq.html [facility] Patient Portal Access Instructions: Stay connected with your healthcare team and access your personal medical information anytime with the [facility] Patient Portal. Please follow the directions below to create your [employer] account: 1.Access the email account you provided upon registration to the hospital/physician office.2.Look for an invitation email from [facility].3.Open the email and access the invitation link: AcceptInvitation to VanessaVoyat.4.Fill in the required quintero to create your account. To access your account, visit [employer] PriveOneChart. Click the blue button labeled Access Patient [...] who you will allowto register on the [facility] Patient Portal for access to your information. You can also access the [facility] Patient Portal on the [facility] joya. Simply click on Patient Portal and then log into your account. If you would like to receive a full copy of your medical records, please contact the [facility] Medical Records Department by calling [phone], Friday through Friday between 8 a.m. and [...] Call your local pharmacy or go to [email or web address] to find one close to you.3.Make use of household items: Use cat litter or old coffee grounds to dispose medications if other options arenot available. Mix your drugs with these household products, seal them in an airtight container andthrow it into the garbage. Call [facility]: [phone] to be sure your drugs can be [...] aware that I should contact my doctor. 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 Nephrostomy tube exchange under fluoroscopy LATERALITY: Left MAINTAINER CENTRAL OFFICE: Dr. Goss Resident: Dr. English MATERIALS: 12 Fr drainage catheter Amplatz [place] bag Jese catheter ANESTHESIA: General anaesthesia. INTRASERVICE [...] sterilely prepped and draped. Time out performed. Demand Generator Manager image demonstrates stable appearance of the nephrostomy [...] Sign Date: 08/11/2024 5:39:17 PM Ordering Provider: [facility]10-09-2024 Note IR Procedure Record Summary Primary Physician: Finalized Date/Time: 08/11/24 10:35:27 Pt. Name: LALY NAVAS/Sex: 1990 Female Med Rec #: [id number] Physician: Financial #: [id number] Pt. Type: S Room[facility]B Admit/Disch: 08/11/24 07:53:56 - Institution: Allergies identified in patient's electronic medical record at time of printing on 08/11/24 Entry 1 Entry 2 Entry 3 Substance Haldol Oranges penicillin Reaction Type Allergy Allergy Allergy Last Modified By: Ruelas, Fany Shoshana Frias LPN, RN, Kimberly V. RN 11/19/23 09:39:23 07/21/23 10:11:02 07/21/23 10:10:45 Case Attendance- IR Entry 1 Entry 2 Entry 3 Case Attendee GARTH GOSS MD, Brandon L Allen, Orchestrator Grace Role Performed Procedure Surgeon Scrub Technologist [...] Case Attendee Juana Wilhelm RN, ADAM A APRN-HUMANITIES PROFESSOR Role Performed Procedure Nurse HUMANITIES PROFESSOR Details Time In 08/11/24 09:58:00 08/11/24 09:58:00 [...] Radiology - Action Plan Outcomes Met? Yes Senior Network Engineer Juana Wilhelm RN Completing Procedure Plan Last Modified By: Juana Wilhelm RN 08/11/24 09:41:12 Case Comments Finalized By: Juana Wilhelm RN Document Signatures Signed By: Juana Wilhelm RN 08/11/24 10:35 Juana Wilhelm RN 08/11/24 10:35 [facility] [id number] History and physical note IR PREPROCEDURE H&P [...] 07/19/2024 and can be found in the [facility] ([facility]). Sky Newsome PA-C Interventional Radiology Pager: [phone] IR dept: x [phone] Available on [employer] Digitally Signed by SKY NEWSOME PA-C on 08/11/2024 09:39 AM [facility] [id number] Anesthesiology Consult note Patient: LALY NAVAS Age: [...] for further details Acid reflux (controlled with mvpa-yul-fzzophd Pepto), anxiety, asthma, bradycardia, cervical cancer, cervicitis, [...] Problem list: Medical Anxiety / SNOMED CT 75920320 / Confirmed Asthma / SNOMED CT 001731121 / Confirmed Decreased appetite / SNOMED CT 384112200 / Confirmed Dehydration / SNOMED CT 53022362 / Confirmed Port-A-Cath in place / SNOMED CT 2925276404 / Confirmed Bilateral flank pain / SNOMED CT 819216054 / Confirmed History of chemotherapy / SNOMED CT 9113799288 / Confirmed Hx of cervical cancer / SNOMED CT 6805492490 / Confirmed History of radiation therapy / SNOMED CT 2842699908 / Confirmed Hydronephrosis, left / SNOMED CT 38707681 / Confirmed Acute kidney injury / SNOMED CT 84962995 / Confirmed Left flank pain / SNOMED CT 459675508 / Confirmed Cervical cancer / SNOMED CT 396387347 / Confirmed Moderate protein-calorie malnutrition / SNOMED CT 461999754 / Confirmed Nausea and vomiting / SNOMED CT 06430442 / Confirmed Cancer related pain / SNOMED CT 8163179815 / Confirmed DVT prophylaxis / SNOMED CT 619005880 / Confirmed Palliative care encounter / SNOMED CT 908816307 / Confirmed Premature menopause / SNOMED CT 5935045282 / Confirmed Pyelonephritis / SNOMED CT 36325879 / Confirmed Nephrostomy status / SNOMED CT 069815214 / Confirmed Obstructive uropathy / SNOMED CT 34152976 / Confirmed, Active Problems (32) Acid reflux [...] ESBL (extended spectrum beta-lactamase) producing bacteria infection (7764789986): Onset on 02/23/2023 at 32 years. Resolved on 05/07/2023 at 32 years. ESBL (extended spectrum beta-lactamase) producing bacteria infection (7521081662): Onset on 08/09/2022 at 31 years. Resolved on 01/02/2023 at 32 years. Comments: 01/02/2023 EST 10:02 SUMEET - JAMAL Pantoja Removed ESBL disease alert from 08/2022 per infection control protocol on 01/02/23. Mass of cervix (911628319): Resolved. Chronic kidney disease, stage 3 (moderate) (2807777680): Resolved. Hydronephrosis of left kidney (43692048): Resolved. Cervicitis (128392450): Resolved. Encounter for antineoplastic chemotherapy (285787292): Resolved. Tinnitus (577971978): Resolved. Complicated UTI (urinary tract infection) (358718443): Resolved. History of COVID-19 (4327904735): Resolved. Family History: Cancer Sister COPD - Chronic obstructive pulmonary disease Mother Kidney stone Mother Asthma Mother Breast cancer Mother Hypertension Mother Heart disease Mother Substance abuse Father Alcohol abuse Father Stroke Grandparent Father Heart attack Mother Diabetes Grandparent Procedure history: Nephrostomy using fluoroscopic guidance (9175103217) on 06/16/2024 at 33 Years. Comments: 06/21/2024 11:46 Fany Beard LPN left JJ stent ([id number]) on 06/16/2024 at 33 Years. Comments: 06/21/2024 11:47 Fany Beard LPN left Nephrostomy tube (782978816) on 10/05/2023 at 32 Years. Comments: 11/19/2023 9:37 Fany Sanchez LPN left side Nephrostomy with tube drainage (44809849) in the month of 07/2023 at 32 Years. Comments: 06/13/2020 10:09 JAMAL Guaman left Nephrostomy with tube drainage (39113766) on 01/10/2021 at 30 Years. Cannulation of Portacath (290966721) in 2020 at 30 Years. Comments: 06/13/2020 10:09 JAMAL Guaman right JJ stent ([id number]) on 11/15/2020 at 29 Years. Radiation (191584155) in the month of 06/2020 at 29 Years. Comments: 06/26/2020 6:12 GINNY Burton RN Mayi A via tandems and oviod X2 Cervical biopsy ([id number]) in 2019 at 29 Years. Comments: 04/12/2020 18:25 Eri Conte RN pt states she had a cervical biopsy done on 04/07/2020 at [facility] for a cervical mass Tumor cells, benign (54312724) in 2002 at 11 Years. 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 done at [facility] [place] Social History: Social & Psychosocial Habits Alcohol [...] vaping - 08/06/2024 07:22 JAMAL Dominguez Home/Environment 08/11/2024isk Assessment: No Risk 08/11/2024 Living situation: Home/Independent Safe place to go: Yes Financial concerns: No Domestic Concerns None Lives In Mobile home Current Home Treatments None Special Services and Community Resources None Marital Status of Patient if Patient Independent Adult: Unmarried Nutrition/Health 08/11/2024 Assessment: No Risk 08/11/2024 Type of diet: [...] Signs (last 24 hrs) Last Charted Temp Lnvjkeor85.6 DegC (AUG 11 08:) Heart Rate Kactdf64 bpm (AUG 11 08:31) IPG513 mmHg (AUG 11 08:) DBP78 mmHg (AUG 11 08:) Measurements from flowsheet : Measurements 08/11/2024 8:31 EDT Height 163.8 cm Height in inches 64.5 inch(es) Admission Weight 59.5 kg Weight Lbs 130.9 lb Weight Method Actual [place] Body Weight 55.82 kg Type of Scale [...] Weight Lbs 130.9 lb Weight Method Actual [place] Body Weight 55.82 kg Type of Scale [...] no difficulties Skin Temperature Warm Skin Description [place] Skin Integrity Intact IV Present Present Neurological [...] #1 We May Share PHI Didier Navas [phone] Designated Person #1 Relationship Father Designated Person #2 We May Share PHI [phone] Designated Person #2 Relationship Sibling Additional Designated [...] after midnight, No makeup, No jewelry, Responsible Alliance Party, Aware of surgery location, Instructed to bring home medications Individuals Taught Patient Learning Readiness Willing to learn Barriers to Learning None evident Teaching Method Explanation, Printed materials Preferred Spoken Language Nigerian Preferred Written Language Nigerian Family/Caregiver Prefer Spoken Language Nigerian Family/Caregiver Prefer Written Language Nigerian Teaching Evaluation Verbalizes/Nonverbally indicates understanding Safety Brochure Information Reviewed Yes [facility] Video Viewed No Information Given [...] 1,000 mL mL . Assessment and Plan [place] Society of Anesthesiologists (ASA) physical status classification: [...] NAYELI BRICE DO on 08/11/2024 09:33 AM [facility] HospitalJasqlvjv93-24-5928 Evaluation + Plan note Future Appointments Appointment Date:08/11/2024 10:00:00 AM Scheduled Provider: Location:IR Appointment Type:IR Nephrostomy Exchange Appointment Date:08/16/2024 09:00:00 AM Scheduled Provider:OLE PACE MD Location:[facility] Appointment Type:PALL OV Follow Up Future Scheduled Tests Laboratory* Clostridium difficile (PCR) 03/04/24 * Ova + Parasite Exam 03/04/24 Radiology* IR Nephrostomy Exchange 08/11/24 * IR Nephrostomy Tube Change Lt Guide 09/04/23 [facility] 09-24-2024 Interventional radiology Progress note The patient was notified via phone her next neph tube exchange in IR with anesthesia is scheduled for Wed 08/11 arrival at 0800 same day surgery. The patient was also notified her pre test appointmentis scheduled for 08/04 at 9am. The patient confirmed and verbalized understanding. Digitally Signed by JAMAL Coleman on 07/27/2024 11:32 AM [facility] HospitalUmgtiixa30-18-3673 NoteORIGINAL PROCEDURE: Nephrostogram with left percutaneous nephrostomy [...] in the usual sterile fashion. A fluoroscopic spray maker image was obtained demonstrating the expected position [...] Sign Date: 06/14/2024 2:56:33 PM Ordering Provider: [facility] ([place])06-09-2024 Evaluation + Plan noteExtracted from: Title:IR Pre-Procedure [...] 05/24/24 and can be found in the [facility] ([facility]). Milagro Mcgarry PA-C Interventional Radiology IR Dept [id number] Available on [facility] A[facility] Future Appointments Appointment Date:06/21/2024 11:30:00 AM Scheduled Provider:OLE PACE MD Location:[facility] Appointment Type:PALL OV Follow Up Future Scheduled Tests Laboratory* Clostridium difficile (PCR) 03/04/24 * Ova + Parasite Exam 03/04/24 Radiology* IR Nephrostomy Exchange 06/09/24 * IR Nephrostomy Tube Change Lt Guide 09/04/23 [facility] 08-07-2024 Hospital Discharge instructions Patient Education 06/09/2024 11:02:59 Radiology- Nephrostomy/Nephroureteral Tube Exchange 12/26/2022(CUSTOM) ESPARTO Nephrostomy/Nephroureteral Tube Exchange Discharge Instructions Interventional Radiology [facility] Imaging Services [address] [place] [address] The procedure that you had done today [...] the feeling of the need to urinate. Jllv-iqj-tmvibql pain medication should be used for pain [...] the gauze. Supplies may be obtained at: [facility] [address] [facility] [address] [facility] Any questions or concerns, please contact your physician or Interventional Radiology at [phone] from 8-4:30pm Friday-Friday. If you do not have a follow up appointment scheduled at the time of discharge, please call Interventional Radiology at the number listed above. 06/09/2024 11:02:47 1- [facility] General Discharge Guidelines (07/18/2023) (CUSTOM) VANESSA SAME [...] Care 06/07/2024 11:54:07 With:JULIAN ISABEL MD Address: [address] [place] [address] [place] [address] [phone] When: Unknown Comments:Call the office to schedule a follow up appointment if not already done. [facility] 08-07-2024 Note* Cristina Simons RN: SIGN, AUTHOR, SIGN, AUTHOR, PERFORM Event Display: IR Procedure Record Authored Date: [id number] IR Procedure Record Summary Primary Physician: VIRAL MANUEL MD Finalized Date/Time: 06/09/24 09:42:49 Pt. Name: LALY NAVAS Austen Lambert/Sex: 1990 Female Med Rec #: [id number] Physician: Financial #: [id number] Pt. Type: S Room/Bed: [facility] [place]/A Admit/Disch: 06/09/24 05:55:56 - Institution: Allergies identified [...] RN Role Performed Primary Surgeon Assisting Surgeon Elastic Attacher Zigzag 1 Details Time In 06/09/24 08:45:00 06/09/24 08:45:00 06/09/24 08:18:00 Time Out 06/09/24 09:22:00 06/09/24 09:22:00 06/09/24 09:38:00 Procedure/Preference IR Nephrostomy Exchange IR Nephrostomy Exchange IR Nephrostomy Exchange Card (SN) (SN) (SN) Last Modified By: Aller, Cristina Valadez RN, RN, Tracie N RN 06/09/24 09:42:01 06/09/24 09:42:01 06/09/24 09:42:01 Entry 4 Entry 5 Entry 6 Case Attendee Padmini Fairchild, DENISE Mariee CATHOLIC PRIEST-HUMANITIES PROFESSOR Role Performed Scrub Technologist Circulating Technologist HUMANITIES PROFESSOR Details Time In 06/09/24 08:18:00 06/09/24 08:18:00 [...] 65 mL Medication CONTRAST ISOVUE 300/30ML 10/CA 515784 Radiology Flouroscopy Fluoroscopy Used? Yes Fluoro Dose [...] Fairchild appropriately Tech, DENISE MONROY displayed, Alcohol CATHOLIC PRIEST-HUMANITIES PROFESSOR based prep dry, Double verification of sterility indicators complete Instrument Sterility Team Members Padmini Fairchild Verifying Sterility Tech Procedure IR Nephrostomy Exchange (SN) Last Modified By: Cristina Simons RN 06/09/24 08:50:31 Skin Prep- IR Entry 1 Procedure IR Nephrostomy Exchange (SN) Skin Prep Prep Area Flank Side Left By Padmini Fairchidl Prep Agents Chloraprep Tech Hair Removal Method [...] Radiology - Action Plan Outcomes Met? Yes Senior Network Engineer Cristina Simons RN Completing Procedure Plan Last Modified By: Cristina Simons RN 06/09/24 08:51:45 Case Comments <None> Finalized By: Cristina Simons RN Document Signatures Signed By: Cristina Simons RN 06/09/24 09:42 Cristina Simons RN 06/09/24 09:42 [facility] 08-07-2024 Summary of episode note Discharge Instructions Thank you for allowing [facility] to assist you with your healthcare needs. The following is importantdischarge information regarding your hospital visit. Your Care Team OTHER, PROVIDER NOT SPECIFIED What to do next Scheduled Follow-Up Appointments Appointment Type When With Where Contact Information StatusPALL OV Follow Up 06/21/2024 11:30 AM OLE MATUTE MD [facility] Confirmed Follow Up Appointments Follow Up with JULIAN ISABEL MD Where:[address] [facility] [place] [address]- [phone] Additional Information: Call the office to schedule [...] cervical cancer Unchanged potassium chloride (Potassium Chloride (Zhx-Xnkm-Xbl M20) 20 mEq oral tablet, extended release) [...] medication providers or retail pharmacies. Education Materials ESPARTO Nephrostomy/Nephroureteral Tube Exchange Discharge Instructions Interventional Radiology [facility] Imaging Services [address] [place] [address] The procedure that you had done today [...] the feeling of the need to urinate. Elcs-txx-xlzoqjp pain medication should be used for pain [...] the gauze. Supplies may be obtained at: [facility] [address] [facility] [address] [facility] Any questions or concerns, please contact your physician or Interventional Radiology at [phone] from 8-4:30pm Friday-Friday. If you do not [...] to receive it can visit one of [facility] vaccine clinics. There are many vaccine clinic locations within the [facility]. For locations and available times, please visit [email or web address].[place].gov/. It is important to note that some COVID mobile vaccine clinics are held outdoors and may be canceled in rainy or stormy conditions. To learn more about pediatric vaccinations (ages 5-11), we invite you to visit the [facility] webpage. https://www.[facility].org/pages/2679-Ogohz-Uwbdukdrwzz-Ccpblaqwgl-Yprlc-Xoz stions.htmlTo learn more about the COVID-19 vaccine, we invite you to visit the CDC website for a list of frequently asked questions.https://www.cdc.gov/coronavirus/2019-ncov/vaccines/faq.html [facility] Patient Portal Access Instructions: Stay connected with your healthcare team and access your personal medical information anytime with the [facility] Patient Portal. Please follow the directions below to create your [facility] account: 1.Access the email account you provided upon registration to the hospital/physician office.2.Look for an invitation email from [facility].3.Open the email and access the invitation link: AcceptInvitation to [facility].4.Fill in the required quintero to create your account. To access your account, visit ArcMail/AnchorFree. Click the blue button labeled Access Patient Portal and then log in with the username and password that you created in the steps above. You will be able to view your test results, lab results, a summary of your visits, upcoming appointments and more. There is also a convenient messaging option where you can send secure messages to your p [email or web address]. In addition, you will have the ability to download any documents or summaries to your computer and/or send the information securely to a physician. Remember that your healthcare information is confidential, so carefully consider who you will allowto register on the [facility] Patient Portal for access to your information. You can also access the [facility] Patient Portal on the [employer] joya. Simply click on Patient Portal and then log into your account. If you would like to receive a full copy of your medical records, please contact the [facility] Medical Records Department by calling [phone], Friday through Friday between 8 a.m. and [...] Call your local pharmacy or go to http://bit.Milabra/4C0Vx5u to find one close to you.3.Make use of household items: Use cat litter or old coffee grounds to dispose medications if other options arenot available. Mix your drugs with these household products, seal them in an airtight container andthrow it into the garbage. Call [facility]: [phone] to be sure your drugs can be [...] Materials Radiology- Nephrostomy/Nephroureteral Tube Exchange 12/26/2022(CUSTOM) 1- [facility] General Discharge Guidelines (07/18/2023) (CUSTOM) Medication Leaflets My discharge plan and instructions have been reviewed and explained to me and I,LALY NAVAS understand my current condition and have read and understand these discharge instructions. I have received a written copy of the plan/instructions. If I have questions, I am aware that I should contact my doctor. 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 Name: LALY NAVAS Austen /Sex: 1990 Female Med Rec #: [id number] Physician: Financial #: [id number] Pt. Type: S Room/Bed: [facility]/A Admit/Disch: 06/09/24 05:55:56 - Institution: Allergies identified [...] RN Role Performed Primary Surgeon Assisting Surgeon Elastic Attacher Zigzag 1 Details Time In 06/09/24 08:45:00 06/09/24 08:45:00 06/09/24 08:18:00 Time Out 06/09/24 09:22:00 06/09/24 09:22:00 06/09/24 09:38:00 Procedure/Preference IR Nephrostomy Exchange IR Nephrostomy Exchange IR Nephrostomy Exchange Card (SN) (SN) (SN) Last Modified By: Cristina Simons RN, Tracie N RN Aller, Tracie N RN 06/09/24 09:42:01 06/09/24 09:42:01 06/09/24 09:42:01 Entry 4 Entry 5 Entry 6 Case Attendee Padmini Fairchild, DENISE Mariee CATHOLIC PRIEST-HUMANITIES PROFESSOR Role Performed Scrub Technologist Circulating Technologist HUMANITIES PROFESSOR Details Time In 06/09/24 08:18:00 06/09/24 08:18:00 [...] 65 mL Medication CONTRAST ISOVUE 300/30ML 10/CA 068545 Radiology Flouroscopy Fluoroscopy Used? Yes Fluoro Dose [...] Fairchild appropriately Tech, DENISE MONROY displayed, Alcohol CATHOLIC PRIEST-HUMANITIES PROFESSOR based prep dry, Double verification of sterility [...] Radiology - Action Plan Outcomes Met? Yes Senior Network Engineer Cristina Simons RN Completing Procedure Plan Last Modified By: Cristina Simons RN 06/09/24 08:51:45 Case Comments Finalized By: Cristina Simons RN Document Signatures Signed By: Cristina Simons RN 06/09/24 09:42 Cristina Simons RN 06/09/24 09:42 [facility]Zapzdfxb14-20-0533 History and physical note IR PREPROCEDURE H&P [...] 05/24/24 and can be found in the [facility] ([facility]). Milagro Mcgarry PA-C Interventional Radiology IR Dept [id number] Available on Care Aware Digitally Signed by MILAGRO MCGARRY PA-C on 06/09/2024 07:59 AM Digitally Signed by VIRAL MANUEL MD on 06/09/2024 08:34 AM [facility] HospitalQtgcfxji93-68-1847 Anesthesiology Consult note Patient: LALY NAVAS Age: [...] pain, 120 tab(s), 0 Refill(s) Potassium Chloride (Gli-Fhgl-Gtt M20) 20 mEq oral tablet, extended release: [...] Problem list: Medical Anxiety / SNOMED CT 21140929 / Confirmed Asthma / SNOMED CT 185126518 / Confirmed Decreased appetite / SNOMED CT 546808849 / Confirmed Dehydration / SNOMED CT 52669434 / Confirmed Port-A-Cath in place / SNOMED CT 1691734076 / Confirmed Bilateral flank pain / SNOMED CT 045813748 / Confirmed History of chemotherapy / SNOMED CT 0241904940 / Confirmed Hx of cervical cancer / SNOMED CT 7595793902 / Confirmed History of radiation therapy / SNOMED CT 6570441345 / Confirmed Hydronephrosis, left / SNOMED CT 39343553 / Confirmed Acute kidney injury / SNOMED CT 76363351 / Confirmed Left flank pain / SNOMED CT 272267641 / Confirmed Cervical cancer / SNOMED CT 530712318 / Confirmed Moderate protein-calorie malnutrition / SNOMED CT 150979433 / Confirmed Nausea and vomiting / SNOMED CT 10175650 / Confirmed Cancer related pain / SNOMED CT 9930294184 / Confirmed DVT prophylaxis / SNOMED CT 451565650 / Confirmed Palliative care encounter / SNOMED CT 725625966 / Confirmed Premature menopause / SNOMED CT 6606257586 / Confirmed Pyelonephritis / SNOMED CT 50119884 / Confirmed Nephrostomy status / SNOMED CT 003520479 / Confirmed Complicated UTI (urinary tract infection) / SNOMED CT 158789559 / Confirmed Obstructive uropathy / SNOMED CT 60243746 / Confirmed, Active Problems (28) Acute kidney [...] ESBL (extended spectrum beta-lactamase) producing bacteria infection (8212009365): Onset on 02/23/2023 at 32 years. Resolved on 05/07/2023 at 32 years. ESBL (extended spectrum beta-lactamase) producing bacteria infection (4937238655): Onset on 08/09/2022 at 31 years. Resolved on 01/02/2023 at 32 years. Comments: 01/02/2023 EST 10:02 JAMAL Haynes Tino Removed ESBL disease alert from 08/2022 per infection control protocol on 01/02/23. Mass of cervix (409332177): Resolved. Chronic kidney disease, stage 3 (moderate) (1206076368): Resolved. Hydronephrosis of left kidney (89021159): Resolved. Cervicitis (485771689): Resolved. Encounter for antineoplastic chemotherapy (795769444): Resolved. Tinnitus (928009695): Resolved. History of COVID-19 (0792859460): Resolved. Family History: Cancer Sister COPD - Chronic obstructive pulmonary disease Mother Kidney stone Mother Asthma Mother Breast cancer Mother Hypertension Mother Heart disease Mother Substance abuse Father Alcohol abuse Father Stroke Grandparent Father Heart attack Mother Diabetes Grandparent Procedure history: Nephrostomy tube (274808079) on 10/05/2023 at 32 Years. 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 Comments: 06/13/2020 10:09 JAMAL Guaman left Nephrostomy with tube drainage (46531946) on 01/10/2021 at 30 Years. Cannulation of Portacath (970764049) in 2020 at 30 Years. Comments: 06/13/2020 10:09 JAMAL Guaman right JJ stent (9645623439) on 11/15/2020 at 29 Years. Radiation (274123709) in the month of 06/2020 at 29 Years. Comments: 06/26/2020 6:12 GINNY Burton RN Mayi A via tandems and oviod X2 Cervical biopsy (40312922) in 2019 at 29 Years. Comments: 04/12/2020 18:25 Eri Conte RN pt states she had a cervical biopsy done on 04/07/2020 at [facility] for a cervical mass Tumor cells, benign (14784446) in 2001 at 11 Years. 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 done at [facility] [place] Social History: Social & Psychosocial Habits Alcohol [...] intake amount: 1 can pop per day 06/09/2024 Assessment: No Risk 06/09/2024 Type of diet: [...] Signs (last 24 hrs) Last Charted Temp Mhogecbm40.4 DegC (JUN 09 06:46) SLG670 mmHg (JUN 09 06:46) DBPH 90 mmHg (JUN 09 06:46) BMI21.18 (JUN 09 06:48) Measurements from flowsheet : Measurements 06/09/2024 6:48 EDT Body Mass Index 21.18 kg/m2 06/09/2024 6:46 EDT Height 167.6 cm Height in inches 66 inch(es) Admission Weight 59.5 kg Weight Lbs 130.9 lb Weight Method Actual [place] Body Weight 59.26 kg Type of Scale [...] Documentation reviewed: Current records. Assessment and Plan [place] [employer] Anesthesiologists (ASA) physical status classification: [...] HILDA HADDAD MD on 06/09/2024 09:02 AM [facility] [id number] Note. MICRO - Microbiology PROCEDURE: Blood Culture [...] Locations *1: This test was performed at: [address], [address] [place] [address])05-23-2024 Note. MICRO - Microbiology PROCEDURE: Blood Culture [...] Locations *1: This test was performed at: [address], [address] [place], [place] 9311004-14-2024 NoteORIGINAL PROCEDURE: Percutaneous left nephrostomy tube exchange with fluoroscopy CLINICAL STATEMENT: History of cervical cancer with left hydronephrosis MAINTAINER CENTRAL OFFICE: Tadeo Leija PA-C MATERIALS: 10 Fr X [...] using 2 identifiers, confirming site and side. Demand Generator Manager image with contrast injection demonstrates stable appearance [...] PM Ordering Provider: [facility]04-14-2024 Hospital Discharge instructions Patient Education 04/14/2024 14:01:07 Radiology- Nephrostomy/Nephroureteral Tube Exchange 12/26/2022(CUSTOM) ESP[facility]O Nephrostomy/Nephroureteral Tube Exchange Discharge Instructions Interventional Radiology [facility] Imaging Services [address] [place] [address] The procedure that you had done today [...] the feeling of the need to urinate. Eeiq-ehu-thildbc pain medication should be used for pain [...] the gauze. Supplies may be obtained at: [facility] [address] [facility] [address] [facility] Any questions or concerns, please contact your physician or Interventional Radiology at [phone] from 8-4:30pm Friday-Friday. If you do not have a follow up appointment scheduled at the time of discharge, please call Interventional Radiology at the number listed above. 04/14/2024 14:00:43 1- [facility] General Discharge Guidelines (07/18/2023) (CUSTOM) VANESSA SAME [...] Care 03/10/2024 10:15:11 With:OLE PACE MD Address: [address] [place] [phone] When: Unknown Comments:Follow-up as scheduled [facility] 06-12-2024 Note* Dustin Palm RN: SIGN, AUTHOR, PERFORM Event Display: IR Procedure Record Authored Date: IR Procedure Record Summary Primary Physician: Finalized Date/Time: 04/14/24 13:19:12 Pt. Name: ANTONELLA LALY Mittal/Sex: 1990 Female Med Rec #: [id number] Physician: Financial #: [id number] Pt. Type: S Room/Bed: 0110/A Admit/Disch: 04/14/24 [...] Entry 3 Case Attendee TADEO LEIJA PA-C, Orchestrator Karolina Reyes Role Performed Radiology PA/RA Scrub [...] 13:14:16 Entry 4 Entry 5 Case Attendee Dsutin Palm RN, JACKSON CATHOLIC PRIEST-HUMANITIES PROFESSOR Role Performed Elastic Attacher Zigzag 1 HUMANITIES PROFESSOR Details Time In 04/14/24 12:44:00 04/14/24 12:44:00 [...] Time Out Sam Junior Relevant images and Moi Jenkins Jacque M., results are properly Dustin Palm RN, labeled and BREANN BRAVO appropriately CATHOLIC PRIEST-HUMANITIES PROFESSOR displayed, Alcohol based prep dry Instrument Sterility [...] Radiology - Action Plan Outcomes Met? Yes Senior Network Engineer Dustin Palm RN Completing Procedure Plan Last Modified By: Dustin Palm RN 04/14/24 12:53:11 Case Comments <None> Finalized By: Dustin Palm RN Document Signatures Signed By: Dustin Palm RN 04/14/24 13:18 [facility] 06-12-2024 Procedure note IR Brief Post Procedure Note Preprocedure Dx: cervical cancer with hydronephrosis Post Procedure Dx: Same Procedure: LEFT nephrostomy tube exchange Anesthesia: MAC and Local EBL: Minimal Complications: None Status: Unchanged Findings: 1. Successful LEFT nephrostomy tube exchange. Plan: 1. Attached to dependent drainage bag. Full report to follow. Orders in [employer]. Tadeo Leija PA-C Interventional Radiology Pager: [phone] dept: [phone] Available on [employer] Digitally Signed by TADEO LEIJA PA-C on 04/14/2024 02:50 PM [facility] HospitalHizomjph81-64-5409 Summary of episode note Discharge Instructions Thank you for allowing [facility] to assist you with your healthcare needs. The following is importantdischarge information regarding your hospital visit. Your Care Team OTHER, PROVIDER NOT SPECIFIED What to do next Scheduled Follow-Up Appointments Appointment Type When With Where Contact Information StatusSO OV Follow Up 04/19/2024 11:00 AM EDT [facility] [address] [place] [phone] Confirmed PALL OV Follow Up 04/28/2024 11:30 AM EDT OLE PACE MD [facility] Confirmed Follow Up Appointments Follow Up with OLE PACE MD Where:[address] [place] [address] [place] [address]- [phone] Additional Information: Follow-up as scheduled Allergies Haldol [...] medication providers or retail pharmacies. Education Materials ESPARTO Nephrostomy/Nephroureteral Tube Exchange Discharge Instructions Interventional Radiology [facility] Imaging Services [address] [place] [address] The procedure that you had done today [...] the feeling of the need to urinate. Eydy-glf-psqmqvg pain medication should be used for pain [...] the gauze. Supplies may be obtained at: [facility] [address] [facility] [address] [facility] Any questions or concerns, please contact your physician or Interventional Radiology at [phone] from 8-4:30pm Friday-Friday. If you do not [...] to receive it can visit one of [facility] vaccine clinics. There are many vaccine clinic locations within the [facility]. For locations and available times, please visit [email or web address].gov/. It is important to note that some COVID mobile vaccine clinics are held outdoors and may be canceled in rainy or stormy conditions. To learn more about pediatric vaccinations (ages 5-11), we invite you to visit the [facility] webpage. https://www.[employer].org/pages/0828-Ndpfr-Njlglqdlpau-Kmydfxbamr-Relxc-Uce stions.htmlTo learn more about the COVID-19 vaccine, we invite you to visit the CDC website for a list of frequently asked questions.https://www.cdc.gov/coronavirus/2019-ncov/vaccines/faq.html [facility] Patient Portal Access Instructions: Stay connected with your healthcare team and access your personal medical information anytime with the [facility] Patient Portal. Please follow the directions below to create your [facility] account: 1.Access the email account you provided upon registration to the hospital/physician office.2.Look for an invitation email from [facility].3.Open the email and access the invitation link: AcceptInvitation to [facility].4.Fill in the required quintero to create your account. To access your account, visit ArcMail/Ch[employer] PriveOneChart. Click the blue button labeled Access Patient [...] who you will allowto register on the [facility] Patient Portal for access to your information. You can also access the [facility] Patient Portal on the [facility] joya. Simply click on Patient Portal and then log into your account. If you would like to receive a full copy of your medical records, please contact the [facility] Medical Records Department by calling [phone], Friday through Friday between 8 a.m. and [...] Call your local pharmacy or go to [email or web address]/[email or web address] to find one close to you.3.Make use of household items: Use cat litter or old coffee grounds to dispose medications if other options arenot available. Mix your drugs with these household products, seal them in an airtight container andthrow it into the garbage. Call [facility]: [phone] to be sure your drugs can be [...] Materials Radiology- Nephrostomy/Nephroureteral Tube Exchange 12/26/2022(CUSTOM) 1- [facility] General Discharge Guidelines (07/18/2023) (CUSTOM) Medication Leaflets My discharge plan and instructions have been reviewed and explained to me and I,LALY NAVAS understand my current condition and have read and understand these discharge instructions. I have received a written copy of the plan/instructions. If I have questions, I am aware that I should contact my doctor. 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 Physical Exam Vitals: Sjibhxggybi20.2 (11:36) Systolic Blood Xgpksnxq589 (11:36) Diastolic Blood Slcqkikv91 (11:36) Pulse79 (11:36) KtH974 (11:36) Respiratory RateNo result General: Alert, cooperative. The remainder of the physical exam is noncontributory. Labs Anticoagulation Labs No qualifying data available. No qualifying data available. Assessment/Treatment Plan Image Guided LEFT Nephrostomy Tube Exchange with possible intervention Post Procedure Discharge Plan Patient to be discharged home. Milagro Mcgarry PA-C Interventional Radiology Pager [phone] IR Dept [id number] Available on Care Aware Future Appointments Appointment Date:04/19/2024 11:00:00 AM Scheduled Provider: Location:[facility]C Appointment Type:SO OV Follow Up Appointment Date:04/28/2024 11:30:00 AM Scheduled Provider:OLE PACE MD Location:[facility] Appointment Type:PALL OV Follow Up Future Scheduled Tests Laboratory* Clostridium difficile (PCR) 03/04/24 * Ova + Parasite Exam 03/04/24 Radiology* IR Nephrostomy Tube Change Lt Guide 09/04/23 [facility] 06-12-2024 Note IR Procedure Record Summary Primary Physician: Finalized Date/Time: 04/14/24 13:19:12 Pt. Name: LALY NAVAS/Sex: 1990 Female Med Rec #: [id number] Physician: Financial #: [id number] Pt. Type: S Room/Bed: [facility]/A Admit/Disch: 04/14/24 11:12:45 - Institution: Allergies identified [...] Entry 3 Case Attendee TADEO LEIJA PA-C, Orchestrator Karolina Reyes Role Performed Radiology PA/RA Scrub [...] 5 Case Attendee Dustin Palm RN, JACKSON CATHOLIC PRIEST-HUMANITIES PROFESSOR Role Performed Elastic Attacher Zigzag 1 HUMANITIES PROFESSOR Details Time In 04/14/24 12:44:00 04/14/24 12:44:00 [...] site marked, Present for Time Out Sandi [employer]LO [employer] Devika Relevant images and Moi Jenkins Jacque M., results are properly Dustin Palm RN, labeled and BREANN BRAVO appropriately CATHOLIC PRIEST-HUMANITIES PROFESSOR displayed, Alcohol based prep dry Instrument Sterility Procedure IR Nephrostomy Exchange (SN) Last Modified By: Dustin Palm RN 04/14/24 12:52:45 Skin Prep- IR Entry 1 Procedure IR Nephrostomy Exchange (SN) Skin Prep Prep Area Flank Side Left By Sandi [employer]LO [employer] Devika A Prep Agents Chloraprep Hair Removal [...] Radiology - Action Plan Outcomes Met? Yes Senior Network Engineer Dustin Palm RN Completing Procedure Plan Last Modified By: Dustin Palm RN 04/14/24 12:53:11 Case Comments Finalized By: Dustin Palm RN Document Signatures Signed By: Dustin Palm RN 04/14/24 13:18 [facility] HospitalEidfcjzw92-24-0777 Note ORIGINAL PROCEDURE: Percutaneous left nephrostomy tube exchange with fluoroscopy CLINICAL STATEMENT: History of cervical cancer with left hydronephrosis MAINTAINER CENTRAL OFFICE: Tadeo Leija PA-C MATERIALS: 10 Fr X [...] using 2 identifiers, confirming site and side. Demand Generator Manager image with contrast injection demonstrates stable appearance [...] Sign Date: 04/14/2024 5:53:55 PM Ordering Provider: [facility]06-12-2024 History and physical note Interventional Radiology Focused [...] Ready to change: Yes. Physical Exam Vitals: Tjpzaqasspe43.2 (11:36) Systolic Blood Wwypghnn938 (11:36) Diastolic Blood Tzjibqjo15 (11:36) Pulse79 (11:36) PuN313 (11:36) Respiratory RateNo result General: Alert, cooperative. The remainder of the physical exam is noncontributory. Labs Anticoagulation Labs No qualifying data available. No qualifying data available. Assessment/Treatment Plan Image Guided LEFT Nephrostomy Tube Exchange with possible intervention Post Procedure Discharge Plan Patient to be discharged home. Milagro Mcgarry PA-C Interventional Radiology Pager [phone] IR Dept [id number] Available on Care Aware Digitally Signed by MILAGRO MCGARRY PA-C on 04/14/2024 12:38 PM Digitally Signed by VIRAL MANUEL MD on 04/14/2024 03:28 PM [facility] HospitalKveufrcu26-43-5046 Anesthesiology Consult note Patient: LALY NAVAS Age: [...] Problem list: Medical Anxiety / SNOMED CT 90764534 / Confirmed Asthma / SNOMED CT 046544353 / Confirmed Decreased appetite / SNOMED CT 055375953 / Confirmed Dehydration / SNOMED CT 07072089 / Confirmed Port-A-Cath in place / SNOMED CT 2727535585 / Confirmed Bilateral flank pain / SNOMED CT 449908194 / Confirmed History of chemotherapy / SNOMED CT 1250823213 / Confirmed Hx of cervical cancer / SNOMED CT 4175203095 / Confirmed History of radiation therapy / SNOMED CT 5193600706 / Confirmed Hydronephrosis, left / SNOMED CT 64767214 / Confirmed Acute kidney injury / SNOMED CT 50550644 / Confirmed Left flank pain / SNOMED CT 525478692 / Confirmed Cervical cancer / SNOMED CT 720422652 / Confirmed Moderate protein-calorie malnutrition / SNOMED CT 972570070 / Confirmed Nausea and vomiting / SNOMED CT 12033359 / Confirmed Cancer related pain / SNOMED CT 4402221549 / Confirmed DVT prophylaxis / SNOMED CT 643551228 / Confirmed Palliative care encounter / SNOMED CT 463212467 / Confirmed Premature menopause / SNOMED CT 6011390620 / Confirmed Pyelonephritis / SNOMED CT 76129964 / Confirmed Nephrostomy status / SNOMED CT 189326998 / Confirmed Complicated UTI (urinary tract infection) / SNOMED CT 081596573 / Confirmed Obstructive uropathy / SNOMED CT 40083416 / Confirmed, Active Problems (28) Acute kidney [...] ESBL (extended spectrum beta-lactamase) producing bacteria infection (9950307344): Onset on 02/23/2023 at 32 years. Resolved on 05/07/2023 at 32 years. ESBL (extended spectrum beta-lactamase) producing bacteria infection (8862750891): Onset on 08/09/2022 at 31 years. Resolved on 01/02/2023 at 32 years. Comments: 01/02/2023 EST 10:02 JAMAL Haynes Removed ESBL disease alert from 08/2022 per infection control protocol on 01/02/23. Mass of cervix (229652928): Resolved. Chronic kidney disease, stage 3 (moderate) (7810883202): Resolved. Hydronephrosis of left kidney (65369590): Resolved. Cervicitis (921961242): Resolved. Encounter for antineoplastic chemotherapy (102324591): Resolved. Tinnitus (761821211): Resolved. History of COVID-19 (4883822455): Resolved. Procedure history: Nephrostomy tube (089429612) on 10/05/2023 at 32 Years. 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 Comments: 06/13/2020 10:09 JAMAL Guaman left Nephrostomy with tube drainage (24588090) on 01/10/2021 at 30 Years. Cannulation of Portacath (397035173) in 2020 at 30 Years. Comments: 06/13/2020 10:09 JAMAL Guaman right JJ stent ([id number]) on 11/15/2020 at 29 Years. Radiation (971526927) in the month of 06/2020 at 29 Years. Comments: 06/26/2020 6:12 JAMAL Braswell A via tandems and oviod X2 Cervical biopsy (48870841) in 2019 at 29 Years. Comments: 04/12/2020 18:25 Eri Conte RN pt states she had a cervical biopsy done on 04/07/2020 at [facility] for a cervical mass Tumor cells, benign (82855233) in 2002 at 11 Years. 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 done at [facility] [place] Social History: Social & Psychosocial Habits Alcohol [...] treatment: None Ready to change: Yes Home/Environment 03/04/2024 Assessment: No Risk 03/04/2024 Living situation: Home/Independent Safe place to go: Yes Financial concerns: No Domestic Concerns None Lives In Mobile home Current Home Treatments None Special Services and Community Resources None Marital Status of Patient if Patient Independent Adult: Unmarried Nutrition/Health 03/04/2024 Type of diet: Regular Appetite Fair Eating Difficulties None Caffeine intake amount: 1 can pop per day 03/04/2024 Assessment: No Risk 03/04/2024 Type of diet: [...] records, Reviewed prior records. Assessment and Plan [place] Society of Anesthesiologists (ASA) physical status classification: [...] DAVID SMITH MD on 04/14/2024 01:24 PM [id number] NoteORIGINAL PROCEDURE: Percutaneous nephrostomy tube exchange with fluoroscopy CLINICAL STATEMENT: Left nephrostomy tube exchange, routine LATERALITY: LEFT MAINTAINER CENTRAL OFFICE: Lacey Loera PA-C MATERIALS: 10 Fr X [...] using 2 identifiers, confirming site and side. Demand Generator Manager image with contrast injection demonstrates stable appearance [...] Sign Date: 03/04/2024 9:14:43 AM Ordering Provider: OLE [facility] ([place])03-03-2024 Hospital Discharge instructions Patient Education 03/03/2024 14:38:37 Radiology- Nephrostomy/Nephroureteral Tube Exchange 12/26/2022(CUSTOM) [facility] Nephrostomy/Nephroureteral Tube Exchange Discharge Instructions Interventional Radiology [facility] Imaging Services [address] [place] [address] The procedure that you had done today [...] the feeling of the need to urinate. Hhga-rqq-ryhjlng pain medication should be used for pain [...] the gauze. Supplies may be obtained at: [facility] [address] [facility] [address] [facility] Any questions or concerns, please contact your physician or Interventional Radiology at [phone] from 8-4:30pm Friday-Friday. If you do not have a follow up appointment scheduled at the time of discharge, please call Interventional Radiology at the number listed above. 03/03/2024 14:38:26 1- [facility] General Discharge Guidelines (07/18/2023) (CUSTOM) VANESSA SAME [...] 02/19/2024 13:58:52 With:MADELINE APARICIO MD, [facility] Address: [address] [place] [address] [facility] [place] [address] [phone] When: Unknown Comments:Follow-up as scheduled [facility] 05-01-2024 History and physical note IR [...] 02/04/2024 and can be found in the [facility] Records (Stamps[facility]). Lacey Loera PA-C Interventional Radiology IR Dept [id number] Available on [employer] Digitally Signed by LACEY LOERA PA-C on 03/03/2024 03:54 PM [facility] [id number] Note* Cristina Simons RN: SIGN, AUTHOR, PERFORM Event Display: IR Procedure Record Authored Date: IR Procedure Record Summary Primary Physician: LACEY LOERA PA-C Finalized Date/Time: 03/03/24 13:42:51 Pt. Name: LALY NAVAS/Sex: 1990 Female Med Rec #: [id number] Physician: Financial #: [id number] Pt. Type: S Room/Bed: 0118/A Admit/Disch: 03/03/24 10:48:31 - Institution: Allergies identified [...] 3 Case Attendee LACEY LOERA RYAN L Cristina Simons RN, PA-C CATHOLIC PRIEST-HUMANITIES PROFESSOR Role Performed Primary Surgeon HUMANITIES PROFESSOR Elastic Attacher Zigzag 1 Details Time In 03/03/24 13:33:00 03/03/24 13:10:00 03/03/24 13:29:00 Time Out 03/03/24 13:39:00 03/03/24 13:46:00 03/03/24 13:46:00 Procedure/Preference IR Nephrostomy Exchange IR Nephrostomy Exchange IR Nephrostomy Exchange Card (SN) (SN) (SN) Last Modified By: Cristina Simons RN, Tracie N RN Aller, Tracie N RN 03/03/24 13:40:25 03/03/24 13:40:25 03/03/24 13:40:25 Entry 4 Entry 5 Case Attendee Padmini Fairchild Rad Angela, Orchestrator Grace Tech Role Performed Scrub Technologist Circulating [...] 6 mL Medication CONTRAST ISOVUE 300/30ML 10/CA 543416 Radiology Flouroscopy Fluoroscopy Used? Yes Fluoro Dose [...] CHU RYAN L Relevant images and Kristyn LOBATO results are properly Cristina Hitchcock RN, Gurinder, labeled and Padmini Vargas Tech, appropriately Angela, Orchestrator Grace displayed, Alcohol based prep dry, Double [...] Radiology - Action Plan Outcomes Met? Yes Senior Network Engineer Cristina Simons RN Completing Procedure Plan Last Modified By: Cristina Simons RN 03/03/24 13:35:19 Case Comments <None> Finalized By: Cristina Simons RN Document Signatures Signed By: Cristina Simons RN 03/03/24 13:42 [facility] 05-01-2024 Summary of episode note Discharge Instructions Thank you for allowing [facility] to assist you with your healthcare needs. The following is importantdischarge information regarding your hospital visit. What to do next Scheduled Follow-Up Appointments Appointment Type When With Where Contact InformationTelephone 03/04/2024 09:30 AM EDT OLE PACE MD Palliative Care SO OV Follow Up 04/07/2024 03:20 PM EDT [facility] [address] [facility] [place] [address] Follow Up Appointments Follow Up with MADELINE APARICIO MD, [facility] When Why: Follow-up as scheduled Where: [address] [place] [address] [facility] [place] [address]- [phone] The Following Activity and Diet Have Been [...] medication providers or retail pharmacies. Education Materials [facility] Nephrostomy/Nephroureteral Tube Exchange Discharge Instructions Interventional Radiology [facility] Imaging Services [facility] [place] [address] The procedure that you had done today [...] the feeling of the need to urinate. Whwn-ltu-dkygozp pain medication should be used for pain [...] the gauze. Supplies may be obtained at: [facility] [address] [facility] [address] [facility] Any questions or concerns, please contact your physician or Interventional Radiology at [phone] from 8-4:30pm Friday-Friday. If you do not have a follow up appointment scheduled at the time of discharge, please call Interventional Radiology at the number listed above. [facility] SAME DAY SURGERY DISCHARGE INSTRUCTIONS PLEASE FOLLOW [...] to receive it can visit one of [facility] vaccine clinics. There are many vaccine clinic locations within the [facility]. For locations and available times, please visit [email or web address].[email or web address] It is important to note that some COVID mobile vaccine clinics are held outdoors and may be canceled in rainy or stormy conditions. To learn more about pediatric vaccinations (ages 5-11), we invite you to visit the [facility] webpage. https://www.[email or web address].org/pages/0290-Nhhbg-Lgwolfbingr-Wjkopymysa-Tzrfg-Vop stions.htmlTo learn more about the COVID-19 vaccine, we invite you to visit the CDC website for a list of frequently asked questions.https://www.cdc.gov/coronavirus/2019-ncov/vaccines/faq.html [facility] Patient Portal Access Instructions: Stay connected with your healthcare team and access your personal medical information anytime with the [facility] Patient Portal. Please follow the directions below to create your [facility] account: 1.Access the email account you provided upon registration to the hospital/physician office.2.Look for an invitation email from [facility].3.Open the email and access the invitation link: AcceptInvitation to [facility].4.Fill in the required quintero to create your account. To access your account, visit Arc[employer] PriveOneChart. Click the blue button labeled Access Patient [...] who you will allowto register on the [facility] Patient Portal for access to your information. You can also access the [facility] Patient Portal on the [employer] joya. Simply click on Patient Portal and then log into your account. If you would like to receive a full copy of your medical records, please contact the [facility] Medical Records Department by calling [phone], Friday through Friday between 8 a.m. and [...] Call your local pharmacy or go to [email or web address] to find one close to you.3.Make use of household items: Use cat litter or old coffee grounds to dispose medications if other options arenot available. Mix your drugs with these household products, seal them in an airtight container andthrow it into the garbage. Call [facility]: [phone] to be sure your drugs can be [...] Materials Radiology- Nephrostomy/Nephroureteral Tube Exchange 12/26/2022(CUSTOM) 1- [facility] General Discharge Guidelines (07/18/2023) (CUSTOM) Medication Leaflets My discharge plan and instructions have been reviewed and explained to me and I,LALY NAVAS understand my current condition and have read and understand these discharge instructions. I have received a written copy of the plan/instructions. If I have questions, I am aware that I should contact my doctor. 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 Lacey Loera PA-C Interventional Radiology IR Dept [id number] Available on [employer] Future Appointments Appointment Date:03/04/2024 09:30:00 AM Scheduled Provider:OLE PACE MD Location:[facility] Appointment Type:Telephone Appointment Date:04/07/2024 03:20:00 PM Scheduled Provider: Location:[facility] Appointment Type:SO OV Follow Up Future Scheduled Tests Radiology* IR Nephrostomy Tube Change Lt Guide 09/04/23 [facility] 05-01-2024 Note IR Procedure Record Summary Primary Physician: LACEY LOERA PA-C Finalized Date/Time: 03/03/24 13:42:51 Pt. Name: LALY NAVAS Austen GardnerB./Sex: 1990 Female Med Rec #: [id number] Physician: Financial #: [id number] Pt. Type: S Room/Bed: [facility]/A Admit/Disch: 03/03/24 10:48:31 - Institution: Allergies identified [...] RYAN L Aller, Tracie N RN PA-C CATHOLIC PRIEST-HUMANITIES PROFESSOR Role Performed Primary Surgeon HUMANITIES PROFESSOR Elastic Attacher Zigzag 1 Details Time In 03/03/24 13:33:00 03/03/24 [...] 6 mL Medication CONTRAST ISOVUE 300/30ML 10/CA 675780 Radiology Flouroscopy Fluoroscopy Used? Yes Fluoro Dose [...] Out KIMBERLEY, CESAR GARCIA Relevant images and CATHOLIC PRIEST-Kristyn ESPINOZA, results are properly Cristina Hitchcock RN, [...] Radiology - Action Plan Outcomes Met? Yes Senior Network Engineer Cristina Simons RN Completing Procedure Plan Last Modified By: Cristina Simons RN 03/03/24 13:35:19 Case Comments Finalized By: Cristina Simons RN Document Signatures Signed By: Cristina Simons RN 03/03/24 13:42 [facility] [id number] Anesthesiology Consult note Patient: LALY NAVAS Age: [...] Problem list: Medical Anxiety / SNOMED CT 29130603 / Confirmed Asthma / SNOMED CT 769617861 / Confirmed Decreased appetite / SNOMED CT 809954001 / Confirmed Dehydration / SNOMED CT 02696343 / Confirmed Port-A-Cath in place / SNOMED CT 9116707591 / Confirmed Bilateral flank pain / SNOMED CT 116230363 / Confirmed History of chemotherapy / SNOMED CT 6079412189 / Confirmed Hx of cervical cancer / SNOMED CT 9485968527 / Confirmed History of radiation therapy / SNOMED CT 2588519669 / Confirmed Hydronephrosis, left / SNOMED CT 45537677 / Confirmed Acute kidney injury / SNOMED CT 19967382 / Confirmed Left flank pain / SNOMED CT 199059492 / Confirmed Cervical cancer / SNOMED CT 705931219 / Confirmed Moderate protein-calorie malnutrition / SNOMED CT 977532084 / Confirmed Nausea and vomiting / SNOMED CT 38640644 / Confirmed Cancer related pain / SNOMED CT 1761605371 / Confirmed DVT prophylaxis / SNOMED CT 510638326 / Confirmed Palliative care encounter / SNOMED CT 132034752 / Confirmed Premature menopause / SNOMED CT 5401373280 / Confirmed Pyelonephritis / SNOMED CT 17171051 / Confirmed Nephrostomy status / SNOMED CT 876436586 / Confirmed Complicated UTI (urinary tract infection) / SNOMED CT 697756966 / Confirmed Obstructive uropathy / SNOMED CT 62239187 / Confirmed, Active Problems (28) Acute kidney [...] ESBL (extended spectrum beta-lactamase) producing bacteria infection (1546300737): Onset on 02/23/2023 at 32 years. Resolved on 05/07/2023 at 32 years. ESBL (extended spectrum beta-lactamase) producing bacteria infection (1709149904): Onset on 08/09/2022 at 31 years. Resolved on 01/02/2023 at 32 years. Comments: 01/02/2023 EST 10:02 JAMAL Haynes Removed ESBL disease alert from 08/2022 per infection control protocol on 01/02/23. Mass of cervix (981371401): Resolved. Chronic kidney disease, stage 3 (moderate) (5761848685): Resolved. Hydronephrosis of left kidney (39401210): Resolved. Cervicitis (245389749): Resolved. Encounter for antineoplastic chemotherapy (276622772): Resolved. Tinnitus (078048606): Resolved. History of COVID-19 (6263417808): Resolved. Family History: Cancer Sister COPD - Chronic obstructive pulmonary disease Mother Kidney stone Mother Asthma Mother Breast cancer Mother Hypertension Mother Heart disease Mother Substance abuse Father Alcohol abuse Father Stroke Grandparent Father Heart attack Mother Diabetes Grandparent Procedure history: Nephrostomy tube (000055577) on 10/05/2023 at 32 Years. 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 Comments: 06/13/2020 10:09 JAMAL Guaman left Nephrostomy with tube drainage (48236791) on 01/10/2021 at 30 Years. Cannulation of Portacath (449692069) in 2020 at 30 Years. Comments: 06/13/2020 10:09 JAMAL Guaman right JJ stent ([id number]) on 11/15/2020 at 29 Years. Radiation (516368400) in the month of 06/2020 at 29 Years. Comments: 06/26/2020 6:12 JAMAL Braswell A via tandems and oviod X2 Cervical biopsy (96884457) in 2019 at 29 Years. Comments: 04/12/2020 18:25 Eri Conte RN pt states she had a cervical biopsy done on 04/07/2020 at [facility] for a cervical mass Tumor cells, benign (50368130) in 2001 at 11 Years. 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 done at [facility] [place] Social History Social & Psychosocial Habits Alcohol [...] pop per day 4Risk Assessment: No Risk 03/03/2024 Type of diet: [...] mmHg Diastolic Blood Pressure Non-Invasive 97 mmHg OR Vital Signs(last 24 hrs) Last Charted UEV826 mmHg (MARCH 03 11:18) DBPH 97mmHg (MARCH 03 11:18) Measurements from flowsheet : Measurements 03/03/2024 11:18 EDT Height 167.6 cm Height in inches 66 inch(es) Admission Weight 59.5 kg Weight Lbs 130.9 lb Weight Method Actual [place] Body Weight 59.26 kg Type of Scale [...] Musculoskeletal No tenderness. Integumentary: Intact, Warm, Dry, [place]. Neurologic: Alert, Oriented. Review / Management Results review: No qualifying data available , Lab results 03/03/2024 11:22 EDT SN - Preop - CTm Pt Ready for OR/Proced 03/03/2024 11:21 03/03/2024 11:21 EDT Individuals Taught Patient Learning Readiness Willing to learn Barriers to Learning None evident Teaching Method Explanation, Printed materials Preferred Spoken Language Nigerian Preferred Written Language Nigerian General Infection Prevention Strategies Hand hygiene Surgical Site Infection Prevention SSI FAQ provided Infection Prevention Teaching Evaluation Verbalizes/Nonverbally indicates understanding Pre Procedure/Surgery Education Appropriate expectations, Bring glasses, hearing aids, contact lenscase, Date/Time of procedure/surgery, Hospital gown requirement worn to OR, Leave valuables, jewelry, wedding ring at home, Meds to take or hold, NPO, 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, Surgical skin prep Procedure/Surgical [...] Weight Lbs 130.9 lb Weight Method Actual [place] Body Weight 59.26 kg Type of Scale [...] Quadrants Present Skin Temperature Warm Skin Description [place], Normal for ethnicity, Dry Skin Integrity Intact [...] Jewelry removed Belongings At Bedside Cell phone, Maxillofacial Prosthetics Dentist, Pants, Rings, Shirt, Shoes, Undergarments Last Fluid Intake 03/02/2024 23:30 Last Food Intake 03/02/2024 19:00 Last Void 03/03/2024 11:18 03/03/2024 11:14 EDT SN - Preop - CTm Pt in SDS Room 03/03/2024 11:13 03/03/2024 11:14 EDT Designated Person #1 We May Share PHI Designated Person #1 We May Share PHI Designated Person #1 Relationship Sibling Designated Person #2 We May Share PHI [phone] Designated Person #2 Relationship Sibling Additional Designated [...] evident Teaching Method Demonstration Preferred Spoken Language Nigerian Preferred Written Language Nigerian Teaching Evaluation Verbalizes/Nonverbally indicates understanding Safety Brochure Information Reviewed Yes [facility] Video Viewed Previously viewed Information [...] Day Patient History . Assessment and Plan [place] Society of Anesthesiologists (ASA) physical status classification: [...] and wishes to proceed with anesthesia. neg [facility] . Digitally Signed by MIRANDA ARMENDARIZ on 03/03/2024 12:57 PM Digitally Signed by NAYELI BRICE DO on 03/03/2024 01:07 PM [facility] HospitalCzmjrese21-77-1494 NoteORIGINAL PROCEDURE: Percutaneous nephrostomy tube exchange with fluoroscopy CLINICAL STATEMENT: Patient with cervical cancer and left hydronephrosis managed with left nephrostomy tube LATERALITY: Left MAINTAINER CENTRAL OFFICE: Lacey Loera PA-C MATERIALS: 10 Fr X [...] using 2 identifiers, confirming site and side. Demand Generator Manager image with contrast injection demonstrates stable appearance [...] PM Ordering Provider: [facility] [place]01-21-2024 Hospital Discharge instructions Patient Education 01/21/2024 14:24:03 [facility] Discharge Instructions Template (08/2018) [facility] SAME DAY SURGERY DISCHARGE INSTRUCTIONS PLEASE FOLLOW [...] us better serve our patients. Form: 1522 (46860) R: 02/0901/21/2024 14:16:54 Radiology- Nephrostomy/Nephroureteral Tube Exchange 12/26/2022(CUSTOM) [facility] Nephrostomy/Nephroureteral Tube Exchange Discharge Instructions Interventional Radiology [facility] Imaging Services [address] [place] [address] The procedure that you had done today [...] the feeling of the need to urinate. Sedc-bdh-zvhpzvo pain medication should be used for pain [...] the gauze. [facility] obtained [facility]: [facility] [address] [facility] [address] [facility] Any questions or concerns, please contact your physician or Interventional Radiology at [phone] from 8-4:30pm Friday-Friday. If you do not have a follow up appointment scheduled at the time of discharge, please call Interventional Radiology at the number listed above. Follow Up Care 01/13/2024 12:19:12 With:MADELINE APARICIO MD, [facility] Address: [address] [place] [address] [place] [address] [phone] When: Unknown Comments:Follow-up with Dr. Aparicio as needed. [facility] 03-20-2024 Note* Alicia Jean RN: SIGN, AUTHOR, SIGN, AUTHOR, PERFORM Event Display: IR Procedure Record Authored Date: IR Procedure Record Summary Primary Physician: Finalized Date/Time: 01/21/24 13:58:22 Pt. Name: LALY NAVAS./Sex: 1990 Female Med Rec #: [id number] Physician: Financial #: [id number] Pt. Type: S Room/Bed: 0122/A Admit/Disch: 01/21/24 11:00:42 - Institution: Allergies identified [...] LOERA ANTHONY J Beans, Aaron RN PA-C CATHOLIC PRIEST-HUMANITIES PROFESSOR Role Performed Radiology PA/RA Anesthesiologist Elastic Attacher Zigzag 1 Details Time In 01/21/24 13:08:00 01/21/24 [...] Colten G Craemer, Alexis Tech Role Performed Elastic Attacher Zigzag 1 Scrub Technologist Circulating Technologist Details Time [...] mL Medication OMNIPAQUE 350 50ML 10/PK Y-540 [facility] [id number] Radiology Flouroscopy Fluoroscopy Used? Yes Fluoro Dose (mGy) 9.52 Fluoro Time 0.8 minutes Radiology Local Local Used? Yes Local Type: lido 2 % Local Dose 8cc Radiology Procedure Site Site/Location Left flank Site Condition No complications Suture 2.0 Ethibond Suture Dressing Type Tagaderm, Gauze sponge 4 X 4 Technologist Notes Left neph exchange using 10F x 35cm M-Drain lot # [id number] Last Modified By: Dustin Palm RN 01/21/24 [...] BALDOMERO CHU ANTHONY J Relevant images and CATHOLIC PRIEST-Néstor ESPINOZA Aaron results are properly RNMiranda Brittaney labeled and RNSingh Colten G, appropriately Lorenzo [...] Radiology - Action Plan Outcomes Met? Yes Senior Network Engineer Dustin Palm RN Completing Procedure Plan Last Modified By: Dustin Palm RN 01/21/24 13:32:48 Case Comments <None> Finalized By: Alicia Jean RN Document Signatures Signed By: Alicia Jean RN 01/21/24 13:57 Alicia Jean RN 01/21/24 13:58 [facility] 03-20-2024 Summary of episode note Discharge Instructions Thank you for allowing [facility] to assist you with your healthcare needs. The following is importantdischarge information regarding your hospital visit. Your Care Team PHYSICIAN, NONE What to do next Scheduled Follow-Up Appointments Appointment Type When With Where Contact InformationPALL OV Follow Up 02/03/2024 10:30 AM EDOLE CAMPBELL MD [facility] SO OV Follow Up 04/07/2024 03:20 PM EDT BRITTNI LU CATHOLIC PRIEST-ELECTRIC MOTOR TESTER [facility] [address] [place] [phone] Follow Up Appointments Follow Up with MADELINE APARICIO MD, [facility] When Why: Follow-up with Dr. Aparicio as needed. Where: [address] [place] [address] [place] [address]- [phone] The Following Activity and Diet Have Been [...] us better serve our patients. Form: 1522 (75625) R: 02/09 [facility] Nephrostomy/Nephroureteral Tube Exchange Discharge Instructions Interventional Radiology [facility] Imaging Services [address] [place] [address] The procedure that you had done today [...] the feeling of the need to urinate. Rasq-aru-bkqhyov pain medication should be used for pain [...] the gauze. Supplies may be obtained at: [facility] [address] [facility] [address] [facility] Any questions or concerns, please contact your physician or Interventional Radiology at [phone] from 8-4:30pm Friday-Friday. If you do not have a follow up appointment scheduled at the time of discharge, please call Interventional Radiology at the number listed above. Additional Information VACCINATE! IT SAVES LIVES! Members of the community who have not yet received the COVID-19 vaccine and would like to receive it can visit one of [facility] vaccine clinics. There are many vaccine clinic locations within the [facility]. For locations and available times, please visit [email or web address].gov/. It is important to note that some COVID mobile vaccine clinics are held outdoors and may be canceled in rainy or stormy conditions. To learn more about pediatric vaccinations (ages 5-11), we invite you to visit the [facility] webpage. https://www.[facility].org/pages/9244-Lorfj-Owoukxgtamc-Mpurkunxng-Aumgy-Wgs stions.htmlTo learn more about the COVID-19 vaccine, we invite you to visit the CDC website for a list of frequently asked questions.https://www.cdc.gov/coronavirus/2019-ncov/vaccines/faq.html Authernative Patient Portal Access Instructions: Stay connected with your healthcare team and access your personal medical information anytime with the Authernative Patient Portal. Please follow the directions below to create your Authernative account: 1.Access the email account you provided upon registration to the hospital/physician office.2.Look for an invitation email from [facility].3.Open the email and access the invitation link: AcceptInvitation to [facility].4.Fill in the required quintero to create your account. To access your account, visit [email or web address]. Click the blue button labeled Access Patient Portal and then log in with the username and password that you created in the steps above. You will be able to view your test results, lab results, a summary of your visits, upcoming appointments and more. There is also a convenient messaging option where you can send secure messages to your p [email or web address]. In addition, you will have the ability to download any documents or summaries to your computer and/or send the information securely to a physician. Remember that your healthcare information is confidential, so carefully consider who you will allowto register on the [facility] Patient Portal for access to your information. You can also access the [facility] Patient Portal on the [facility] Tiny Printswhere joya. Simply click on Patient Portal and then log into your account. If you would like to receive a full copy of your medical records, please contact the [facility] Medical Records Department by calling [phone], Friday through Friday between 8 a.m. and [...] Call your local pharmacy or go to http://bit.ly/4Y1Mq1p to find one close to you.3.Make use of household items: Use cat litter or old coffee grounds to dispose medications if other options arenot available. Mix your drugs with these household products, seal them in an airtight container andthrow it into the garbage. Call [facility]: [phone] to be sure your drugs can be [...] aware that I should contact my doctor. 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 Tadeo Leija PA-C Interventional Radiology Pager: [phone] IR dept: x [phone] Available on [employer]ue [employer] Future Appointments Appointment Date:02/03/2024 10:30:00 AM Scheduled Provider:OLE PACE MD Location:[facility] Palliative Appointment Type:PALL OV Follow Up Appointment Date:04/07/2024 03:20:00 PM Scheduled Provider:BRITTNI LU Location:[facility] Appointment Type:SO OV Follow Up Future Scheduled Tests Laboratory* Urinalysis 02/14/23 Radiology* IR Neph Cath-Neph Ureter W/Guide Left 06/30/23 * IR Nephrostomy Tube Change Lt Guide 09/04/23 [facility] 03-20-2024 Note IR Procedure Record Summary Primary Physician: Finalized Date/Time: 01/21/24 13:58:22 Pt. Name: LALY NAVAS/Sex: 1990 Female Med Rec #: [id number] Physician: Financial #: [id number] Pt. Type: S Room/Bed: [facility]/A Admit/Disch: 01/21/24 11:00:42 - Institution: Allergies identified [...] LOERA ANTHONY J Beans, Aaron RN PA-C CATHOLIC PRIEST-HUMANITIES PROFESSOR Role Performed Radiology PA/RA Anesthesiologist Elastic Attacher Zigzag 1 Details Time In 01/21/24 13:08:00 01/21/24 [...] Colten G Craemer, Alexis Tech Role Performed Elastic Attacher Zigzag 1 Scrub Technologist Circulating Technologist Details Time [...] mL Medication OMNIPAQUE 350 50ML 10/PK Y-540 [facility] 7826-1860-58 Radiology Flouroscopy Fluoroscopy Used? Yes Fluoro Dose (mGy) 9.52 Fluoro Time 0.8 minutes Radiology Local Local Used? Yes Local Type: lido 2 % Local Dose 8cc Radiology Procedure Site Site/Location Left flank Site Condition No complications Suture 2.0 Ethibond Suture Dressing Type Tagaderm, Gauze sponge 4 X 4 Technologist Notes Left neph exchange using 10F x 35cm M-Drain lot # [id number] Last Modified By: Dustin Palm RN 01/21/24 [...] BALDOMERO CHU ANTHONY J Relevant images and CATHOLIC PRIEST-OLGA, Dustin Palm results are properly RN, Alicia [...] Radiology - Action Plan Outcomes Met? Yes Senior Network Engineer Dustin Palm RN Completing Procedure Plan Last Modified By: Dustin Palm RN 01/21/24 13:32:48 Case Comments Finalized By: Alicia Jean RN Document Signatures Signed By: Alicia Jean RN 01/21/24 13:57 Alicia Jean RN 01/21/24 13:58 [facility] HospitalTacnhxjx12-08-0617 Anesthesiology Consult note Patient: LALY NAVAS Age: [...] Problem list: Medical Anxiety / SNOMED CT 41699482 / Confirmed Asthma / SNOMED CT 865079526 / Confirmed Decreased appetite / SNOMED CT 824321535 / Confirmed Dehydration / SNOMED CT 11621916 / Confirmed Port-A-Cath in place / SNOMED CT 3640735569 / Confirmed Bilateral flank pain / SNOMED CT 232983047 / Confirmed History of chemotherapy / SNOMED CT 4062186129 / Confirmed Hx of cervical cancer / SNOMED CT 4864928628 / Confirmed History of radiation therapy / SNOMED CT 7971928873 / Confirmed Hydronephrosis, left / SNOMED CT 62490283 / Confirmed Acute kidney injury / SNOMED CT 63950208 / Confirmed Left flank pain / SNOMED CT 202947895 / Confirmed Cervical cancer / SNOMED CT 095490066 / Confirmed Moderate protein-calorie malnutrition / SNOMED CT 513249183 / Confirmed Nausea and vomiting / SNOMED CT 73690857 / Confirmed Cancer related pain / SNOMED CT 6600283276 / Confirmed DVT prophylaxis / SNOMED CT 123599517 / Confirmed Palliative care encounter / SNOMED CT 767859735 / Confirmed Premature menopause / SNOMED CT 2137937883 / Confirmed Pyelonephritis / SNOMED CT 32724386 / Confirmed Nephrostomy status / SNOMED CT 497986201 / Confirmed Complicated UTI (urinary tract infection) / SNOMED CT 078339969 / Confirmed Obstructive uropathy / SNOMED CT 25244964 / Confirmed, Active Problems (28) Acute kidney [...] ESBL (extended spectrum beta-lactamase) producing bacteria infection (4307247347): Onset on 02/23/2023 at 32 years. Resolved on 05/07/2023 at 32 years. ESBL (extended spectrum beta-lactamase) producing bacteria infection (3686161025): Onset on 08/09/2022 at 31 years. Resolved on 01/02/2023 at 32 years. Comments: 01/02/2023 EST 10:02 JAMAL Haynes Removed ESBL disease alert from 08/2022 per infection control protocol on 01/02/23. Mass of cervix (261132173): Resolved. Chronic kidney disease, stage 3 (moderate) (3179765338): Resolved. Hydronephrosis of left kidney (10971170): Resolved. Cervicitis (253898958): Resolved. Encounter for antineoplastic chemotherapy (422916739): Resolved. Tinnitus (652014572): Resolved. History of COVID-19 (1795596489): Resolved. Procedure history: Nephrostomy tube (053885758) on 10/05/2023 at 32 Years. Comments: 11/19/2023 9:37 Fany Sanchez LPN left side Nephrostomy with tube drainage (42374388) in the month of 07/2023 at 32 Years. Comments: 06/13/2020 10:09 JAMAL Guaman left Nephrostomy with tube drainage (63565159) on 01/10/2021 at 30 Years. Cannulation of Portacath (502612138) in 2020 at 30 Years. Comments: 06/13/2020 10:09 JAMAL Guaman right JJ stent (3703866243) on 11/15/2020 at 29 Years. Radiation (555310696) in the month of 06/2020 at 29 Years. Comments: 06/26/2020 6:12 JAMAL Braswell via tandems and oviod X2 Cervical biopsy (63889574) in 2019 at 29 Years. Comments: 04/12/2020 18:25 Eri Conte RN pt states she had a cervical biopsy done on 04/07/2020 at [facility] for a cervical mass Tumor cells, benign (84879326) in 2002 at 11 Years. 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 done [facility] [place] Social History Social & Psychosocial Habits Alcohol [...] Examination Vital Signs(last 24 hrs) Last Charted IVZ918 mmHg (JAN 20 11:50) DBP84 mmHg (JAN 20 11:50) Measurements from flowsheet : Measurements 01/21/2024 11:50 EDT Height 167.6 cm Height in inches 66 inch(es) Admission Weight 58.2 kg Weight Lbs 128 lb [place] Body Weight 59.26 kg Admission Body Mass [...] Documentation reviewed: Current records. Assessment and Plan [place] [employer] Anesthesiologists (ASA) physical status classification: [...] HILDA HADDAD MD on 01/21/2024 01:09 PM [facility] HospitalHmstxdul88-41-4425 History and physical note IR PREPROCEDURE H&P [...] 01/06/2024 and can be found in the [facility] ([facility]). Tadeo Leija PA-C Interventional Radiology Pager: [phone] IR dept: x [phone] Available on [employer] Digitally Signed by TADEO LEIJA PA-C on 01/21/2024 01:01 PM Digitally Signed by VIRAL MANUEL MD on 01/21/2024 09:32 PM [facility] HospitalAyyjjjav24-39-6332 Interventional radiology Progress note Lizy had called today and said she is not feeling well and to cancel her neph tube change with anesthesia. I called anesthesia and let them know and transferred her to [place] for rescheduling. Digitally Signed by Patti Ching on 01/14/2024 08:59 AM [facility] HospitalSkabavru66-77-0466 NoteORIGINAL PROCEDURE: IR NEPHROSTOMY TUBE CHANGE MODERATE [...] Sign Date: 12/04/2023 6:36:53 PM Ordering Provider: [facility]12-03-2023 Hospital Discharge instructions Patient Education 12/03/2023 12:30:02 Radiology- Nephrostomy/Nephroureteral Tube Exchange 12/26/2022(CUSTOM) ESP[facility] Nephrostomy/Nephroureteral Tube Exchange Discharge Instructions Interventional Radiology [facility] Imaging Services [address] [place] [address] The procedure that you had done today [...] the feeling of the need to urinate. Kueu-nni-hrdtjbj pain medication should be used for pain [...] the gauze. Supplies may be obtained at: [facility] [address] [facility] [address] [facility] Any questions or concerns, please contact your physician or Interventional Radiology at [phone] from 8-4:30pm Friday-Friday. If you do not have a follow up appointment scheduled at the time of discharge, please call Interventional Radiology at the number listed above. Follow Up Care 10/14/2023 17:16:46 With:RITA YEH MD, [facility] Address: [address] [place] [address] [place] [address]- [phone] When: Unknown Comments:Follow-up as scheduled. Schedule appointment as soon as possible [facility] 01-31-2024 Evaluation + Plan noteExtracted from: [...] 11/19/2023 and can be found in the [facility] (Stampsy). Tadeo Leija PA-C Interventional Radiology Pager: [phone] IR dept: x [phone] Available on Coxhealtht Future Appointments Appointment Date:12/08/2023 03:00:00 PM Scheduled Provider:OLE PACE MD Location:[facility] Palliative Appointment Type:PALL OV Follow Up Appointment Date:12/08/2023 03:40:00 PM Scheduled Provider:BRITTNI LU Location:[facility] Appointment Type:SO OV Appointment Date:01/14/2024 10:00:00 AM Scheduled Provider: Location:IR Appointment Type:IR Nephrostomy Exchange Future Scheduled Tests Laboratory* Urinalysis 02/14/23 Radiology* IR Nephrostomy Exchange 01/14/24 * IR Neph Cath-Neph Ureter W/Guide Left 06/30/23 * IR Nephrostomy Tube Change Lt Guide 09/04/23 [facility] 01-31-2024 Note* Lexi Marcano RN: SIGN, AUTHOR, SIGN, AUTHOR, PERFORM Event Display: IR Procedure Record Authored Date: [id number] IR Procedure Record Summary Primary Physician: RITA YEH MD Finalized Date/Time: 12/03/23 11:48:38 Pt. Name: LALY NAVASO.B./Sex: 1990 Female Med Rec #: [id number] Physician: Financial #: [id number] Pt. Type: S Room/Bed: [facility]/A Admit/Disch: 12/03/23 09:22:31 - Institution: Allergies identified [...] Attendee RITA YEH MD, Jacque M. Herrick, Orchestrator Leatha Role Performed Primary Surgeon Scrub Technologist [...] Case Attendee Lexi Marcano RN Role Performed Elastic Attacher Zigzag 1 Details Time In 12/03/23 11:18:00 Time [...] mL Medication OMNIPAQUE 300 50ML 10/PK Y-530 [facility] 6299-4603-89 Radiology Flouroscopy Fluoroscopy Used? Yes Fluoro Dose (mGy) 5.39 Fluoro Time 1.6 min Radiology Local Local Used? Yes Local Type: lidocaine 2% Local Dose 4cc Radiology Procedure Site Site/Location left flank Site Condition No complications Dressing Type Bioclusive 4 X 5, Gauze Technologist Notes 10f x 35cm m-drain sponge 4 X 4 lot#[id number] Last Modified By: Lexi Marcano RN 12/03/23 [...] Radiology - Action Plan Outcomes Met? Yes Senior Network Engineer Lexi Marcano RN Completing Procedure Plan Last Modified By: Lexi Marcano RN 12/03/23 11:33:21 Case Comments <None> Finalized By: Lexi Marcano RN Document Signatures Signed By: Lexi Marcano RN 12/03/23 11:48 Lexi Marcano RN 12/03/23 11:48 [facility] 01-31-2024 Summary of episode note Discharge Instructions Thank you for allowing [facility] to assist you with your healthcare needs. The following is importantdischarge information regarding your hospital visit. Your Care Team PHYSICIAN, NONE What to do next Scheduled Follow-Up Appointments Appointment Type When With Where Contact InformationPALL OV Follow Up 12/08/2023 03:00 PM OLE MCNEIL MD Palliative Care SO OV 12/08/2023 03:40 PM BRITTNI COLEMAN CATHOLIC PRIEST-ELECTRIC MOTOR TESTER [facility] [address] [facility] [place] [address] IR Nephrostomy Exchange 01/14/2024 10:00 AM EDT IR Follow Up Appointments Follow Up with RITA YEH MD, [facility] When Why: Follow-up as scheduled. Schedule appointment as soon as possible Where: [address] [place] [address] [place] [address]- [phone] The Following Activity and Diet Have Been [...] medication providers or retail pharmacies. Education Materials ESPARTO Nephrostomy/Nephroureteral Tube Exchange Discharge Instructions Interventional Radiology [facility] Imaging Services [address] [place] [address] The procedure that you had done today [...] the feeling of the need to urinate. Abps-elm-qgufkgc pain medication should be used for pain [...] the gauze. Supplies may be obtained at: [facility] [address] [facility] [address] [facility] Any questions or concerns, please contact your physician or Interventional Radiology at [phone] from 8-4:30pm Friday-Friday. If you do not have a follow up appointment scheduled at the time of discharge, please call Interventional Radiology at the number listed above. Additional Information VACCINATE! IT SAVES LIVES! Members of the community who have not yet received the COVID-19 vaccine and would like to receive it can visit one of [facility] vaccine clinics. There are many vaccine clinic locations within the [facility]. For locations and available times, please visit [email or web address].gov/. It is important to note that some COVID mobile vaccine clinics are held outdoors and may be canceled in rainy or stormy conditions. To learn more about pediatric vaccinations (ages 5-11), we invite you to visit the [facility] webpage. https://www.[facility].org/pages/7089-Xwdqw-Twiilpfwicm-Nfksprkeuy-Asfdf-Cmx stions.htmlTo learn more about the COVID-19 vaccine, we invite you to visit the CDC website for a list of frequently asked questions.https://www.cdc.gov/coronavirus/2019-ncov/vaccines/faq.html VanessaVoyat Patient Portal Access Instructions: Stay connected with your healthcare team and access your personal medical information anytime with the [facility] Patient Portal. Please follow the directions below to create your VanessaVoyat account: 1.Access the email account you provided upon registration to the hospital/physician office.2.Look for an invitation email from [facility].3.Open the email and access the invitation link: AcceptInvitation to VanessaVoyat.4.Fill in the required quintero to create your account. To access your account, visit ArcMail/Chauffeur PriveOneChart. Click the blue button labeled Access Patient [...] who you will allowto register on the [facility] Patient Portal for access to your information. You can also access the [facility] Hospital[facility] Patient Portal on the [facility] Anywhere joya. Simply click on Patient Portal and then log into your account. If you would like to receive a full copy of your medical records, please contact the [facility] Medical Records Department by calling [phone], Friday through Friday between 8 a.m. and [...] Call your local pharmacy or go to [email or web address] to find one close to you.3.Make use of household items: Use cat litter or old coffee grounds to dispose medications if other options arenot available. Mix your drugs with these household products, seal them in an airtight container andthrow it into the garbage. Call [facility]: [phone] to be sure your drugs can be [...] aware that I should contact my doctor. 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 Name: LALY NAVAS /Sex: 1990 Female Med Rec #: [id number] Physician: Financial #: [id number] Pt. Type: S Room/Bed: 0128/A Admit/Disch: 12/03/23 09:22:31 - Institution: Allergies identified [...] Attendee RITA YEH MD, Jacque M. Herrick, Orchestrator Leatha Boyce Role Performed Primary Surgeon Scrub [...] Case Attendee Lexi Marcano RN Role Performed Elastic Attacher Zigzag 1 Details Time In 12/03/23 11:18:00 Time [...] mL Medication OMNIPAQUE 300 50ML 10/PK Y-530 [facility] 9291-1930-22 Radiology Flouroscopy Fluoroscopy Used? Yes Fluoro Dose (mGy) 5.39 Fluoro Time 1.6 min Radiology Local Local Used? Yes Local Type: lidocaine 2% Local Dose 4cc Radiology Procedure Site Site/Location left flank Site Condition No complications Dressing Type Bioclusive 4 X 5, Gauze Technologist Notes 10f x 35cm m-drain sponge 4 X 4 lot#[id number] Last Modified By: Lexi Marcano RN 12/03/23 [...] Radiology - Action Plan Outcomes Met? Yes Senior Network Engineer Lexi Marcano RN Completing Procedure Plan Last Modified By: Lexi Marcano RN 12/03/23 11:33:21 Case Comments Finalized By: Lexi Marcano RN Document Signatures Signed By: Lexi Marcano RN 12/03/23 11:48 Lexi Marcano RN 12/03/23 11:48 [facility] HospitalUlaxxnjk00-02-2875 Anesthesiology Consult note Patient: LALY NAVAS Age: [...] Problem list: Medical Anxiety / SNOMED CT 96639500 / Confirmed Asthma / SNOMED CT 876267377 / Confirmed Decreased appetite / SNOMED CT 091264235 / Confirmed Dehydration / SNOMED CT 37834259 / Confirmed Port-A-Cath in place / SNOMED CT 8822422069 / Confirmed Bilateral flank pain / SNOMED CT 334785619 / Confirmed History of chemotherapy / SNOMED CT 1260441226 / Confirmed Hx of cervical cancer / SNOMED CT 9028504743 / Confirmed History of radiation therapy / SNOMED CT 9732725646 / Confirmed Hydronephrosis, left / SNOMED CT 18655942 / Confirmed Acute kidney injury / SNOMED CT 06001460 / Confirmed Left flank pain / SNOMED CT 416307710 / Confirmed Cervical cancer / SNOMED CT 205454068 / Confirmed Moderate protein-calorie malnutrition / SNOMED CT 881046464 / Confirmed Nausea and vomiting / SNOMED CT 27703672 / Confirmed Cancer related pain / SNOMED CT 1452748190 / Confirmed DVT prophylaxis / SNOMED CT 651480164 / Confirmed Palliative care encounter / SNOMED CT 969128334 / Confirmed Premature menopause / SNOMED CT 5537639005 / Confirmed Pyelonephritis / SNOMED CT 16927686 / Confirmed Nephrostomy status / SNOMED CT 383514823 / Confirmed Complicated UTI (urinary tract infection) / SNOMED CT 528343594 / Confirmed Obstructive uropathy / SNOMED CT 41657819 / Confirmed, Active Problems (28) Acute kidney [...] ESBL (extended spectrum beta-lactamase) producing bacteria infection (7705632513): Onset on 02/23/2023 at 32 years. Resolved on 05/07/2023 at 32 years. ESBL (extended spectrum beta-lactamase) producing bacteria infection (0337487281): Onset on 08/09/2022 at 31 years. Resolved on 01/02/2023 at 32 years. Comments: 01/02/2023 EST 10:02 JAMAL Haynes Removed ESBL disease alert from 08/2022 per infection control protocol on 01/02/23. Mass of cervix (231457221): Resolved. Chronic kidney disease, stage 3 (moderate) (8336241541): Resolved. Hydronephrosis of left kidney (57904105): Resolved. Cervicitis (719787460): Resolved. Encounter for antineoplastic chemotherapy (141236793): Resolved. Tinnitus (148080013): Resolved. History of COVID-19 (4435296643): Resolved. Procedure history: Nephrostomy tube (932507883) on 10/05/2023 at 32 Years. Comments: 11/19/2023 9:37 Fany Sanchez LPN left side Nephrostomy with tube drainage (89756835) in the month of 07/2023 at 32 Years. Comments: 06/13/2020 10:09 JAMAL Guaman left Nephrostomy with tube drainage (63932276) on 01/10/2021 at 30 Years. Cannulation of Portacath (134724239) in 2020 at 30 Years. Comments: 06/13/2020 10:09 JAMAL Guaman right JJ stent ([id number]) on 11/15/2020 at 29 Years. Radiation (329675304) in the month of 06/2020 at 29 Years. Comments: 06/26/2020 6:12 JAMAL Braswell A via tandems and oviod X2 Cervical biopsy (51466931) in 2019 at 29 Years. Comments: 04/12/2020 18:25 Eri Conte RN pt states she had a cervical biopsy done on 04/07/2020 at [facility] for a cervical mass Tumor cells, benign (92587403) in 2001 at 11 Years. 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 done at [facility] [place] Social History Social & Psychosocial Habits Alcohol [...] intake amount: 1 can pop per day 12/03/2023 Assessment: No Risk 12/03/2023 Type of diet: [...] Weight 58.6 kg Weight Lbs 128.9 lb [place] Body Weight 59.26 kg Admission Body Mass [...] records, Reviewed prior records. Assessment and Plan [place] Society of Anesthesiologists (ASA) physical status classification: [...] DAVID SMITH MD on 12/03/2023 11:13 AM [facility] HospitalSubmjdie63-95-6449 History and physical note IR PREPROCEDURE H&P [...] 11/19/2023 and can be found in the [facility] ([facility]). Tadeo Leija PA-C Interventional Radiology Pager: [phone] IR dept: x [phone] Available on Coxhealtht Digitally Signed by TADEO LEIJA PA-C on 12/03/2023 10:44 AM [facility] [facility] Hospital Discharge instructions Patient Education 10/22/2023 16:36:58 [facility] Discharge Instructions Template (08/2018)(CUSTOM) [facility] SAME DAY SURGERY DISCHARGE INSTRUCTIONS PLEASE FOLLOW [...] us better serve our patients. Form: 1522 (07714) R: 02/0910/22/2023 16:36:17 Radiology- Nephrostomy/Nephroureteral Tube Exchange 12/26/2022(CUSTOM) [facility] Nephrostomy/Nephroureteral Tube Exchange Discharge Instructions Interventional Radiology [facility] Imaging Services [facility] [place] [address] The procedure that you had done today [...] the feeling of the need to urinate. Dewo-bcl-tbllsts pain medication should be used for pain [...] the gauze. Supplies may be obtained at: [facility] [address] [facility] [address] [facility] Any questions or concerns, please contact your physician or Interventional Radiology at [phone] from 8-4:30pm Friday-Friday. If you do not have a follow up appointment scheduled at the time of discharge, please call Interventional Radiology at the number listed above. Follow Up Care 10/09/2023 15:32:25 With:BRITTNI LU Address: [address] [facility] [place] [address]- [phone] When: Unknown Comments:Follow-up as scheduled [facility] 12-20-2023 Note* Cristina Simons RN: SIGN, AUTHOR, SIGN, AUTHOR, PERFORM Event Display: IR Procedure Record Authored Date: [id number] IR Procedure Record Summary Primary Physician: VIRAL MASON MD, Ph.D Finalized Date/Time: 10/22/23 15:04:59 Pt. Name: LALY NAVAS /Sex: 1990 Female Med Rec #: [id number] Physician: Financial #: [id number] Pt. Type: S Room/Bed: [facility]5/A Admit/Disch: 10/22/23 09:10:31 - Institution: Allergies identified in patient's electronic medical record at time of printing on 10/22/23 Entry 1 Entry 2 Substance Oranges penicillin Reaction Type Allergy Allergy Last Modified By: Shoshana Renteria RN, Kimberly V. RN 07/21/23 10:11:02 07/21/23 10:10:45 Case Attendance- IR Entry 1 Entry 2 Entry 3 Case Attendee VIRAL MASON MD, Ph.D Cristina Simons RN OrchestratorMendel Fortune A Role Performed Primary Surgeon Elastic Attacher Zigzag 1 Scrub Technologist Details Time In 10/22/23 14:47:00 10/22/23 14:31:00 10/22/23 14:31:00 Time Out 10/22/23 14:54:00 10/22/23 15:02:00 10/22/23 15:02:00 Procedure/Preference IR Nephrostomy Exchange IR Nephrostomy Exchange IR Nephrostomy Exchange Card (SN) (SN) (SN) Last Modified By: Cristina Simons RN, Tracie N RN Aller, Tracie N RN 10/22/23 14:56:59 10/22/23 14:56:59 10/22/23 14:56:59 Entry 4 Entry 5 Case Attendee Karolina Prater MATTHEW J CATHOLIC PRIEST-HUMANITIES PROFESSOR Role Performed Circulating Technologist HUMANITIES PROFESSOR Details Time In 10/22/23 14:31:00 10/22/23 14:31:00 [...] mL Medication OMNIPAQUE 300 50ML 10/PK Y-530 [facility] 2842-7007-34 Radiology Flouroscopy Fluoroscopy Used? Yes Fluoro Dose [...] labeled and ELIANA Bermudez MATTHEW J appropriately CATHOLIC PRIEST-HUMANITIES PROFESSOR displayed, Alcohol based prep dry, Double verification [...] Radiology - Action Plan Outcomes Met? Yes Senior Network Engineer Cristina Simons RN Completing Procedure Plan Last Modified By: Cristina Simons RN 10/22/23 14:40:41 Case Comments <None> Finalized By: Cristina Simons RN Document Signatures Signed By: Cristina Simons RN 10/22/23 14:57 Cristina Simons RN 10/22/23 15:04 [facility] 12-20-2023 Summary of episode note Discharge Instructions Thank you for allowing [facility] to assist you with your healthcare needs. The following is importantdischarge information regarding your hospital visit. Your Care Team FLIP MARTIN MD What to do next Scheduled Follow-Up Appointments Appointment Type When With Where Contact InformationSO OV Follow Up 10/31/2023 10:00 AM EST BRITTNI LU [facility] [address] [place] [phone] PALL OV Follow Up 11/18/2023 09:30 AM OLE MCNEIL MD [facility] IR Nephrostomy Exchange 12/03/2023 11:00 AM EST IR Follow Up Appointments Follow Up with BRITTNI LU When Why: Follow-up as scheduled Where: [address] [place] [address] [place] [address]- [phone] The Following Activity and Diet Have Been [...] us better serve our patients. Form: 1522 (60295) R: 02/09 [facility] Nephrostomy/Nephroureteral Tube Exchange Discharge Instructions Interventional Radiology [facility] Imaging Services [address] [place] [address] The procedure that you had done today [...] the feeling of the need to urinate. Hixm-tig-vijokdw pain medication should be used for pain [...] the gauze. Supplies may be obtained at: [facility] [address] [facility] [address] [facility] Any questions or concerns, please contact your physician or Interventional Radiology at [phone] from 8-4:30pm Friday-Friday. If you do not have a follow up appointment scheduled at the time of discharge, please call Interventional Radiology at the number listed above. Additional Information VACCINATE! IT SAVES LIVES! Members of the community who have not yet received the COVID-19 vaccine and would like to receive it can visit one of [facility] vaccine clinics. There are many vaccine clinic locations within the [facility]. For locations and available times, please visit [email or web address].[place].gov/. It is important to note that some COVID mobile vaccine clinics are held outdoors and may be canceled in rainy or stormy conditions. To learn more about pediatric vaccinations (ages 5-11), we invite you to visit the [facility] webpage. https://www.[facility].org/pages/8874-Gghfa-Jximizsqvwh-Wupgnoqufy-Hmlui-Gmq stions.htmlTo learn more about the COVID-19 vaccine, we invite you to visit the CDC website for a list of frequently asked questions.https://www.cdc.gov/coronavirus/2019-ncov/vaccines/faq.html [facility] Patient Portal Access Instructions: Stay connected with your healthcare team and access your personal medical information anytime with the [facility] Patient Portal. Please follow the directions below to create your VanessaVoyat account: 1.Access the email account you provided upon registration to the hospital/physician office.2.Look for an invitation email from [facility].3.Open the email and access the invitation link: AcceptInvitation to [facility].4.Fill in the required quintero to create your account. To access your account, visit ArcMail/Emergent Discoveryhart. Click the blue button labeled Access Patient Portal and then log in with the username and password that you created in the steps above. You will be able to view your test results, lab results, a summary of your visits, upcoming appointments and more. There is also a convenient messaging option where you can send secure messages to your p [email or web address]. In addition, you will have the ability to download any documents or summaries to your computer and/or send the information securely to a physician. Remember that your healthcare information is confidential, so carefully consider who you will allowto register on the [facility] Patient Portal for access to your information. You can also access the [facility] Patient Portal on the [facility] joya. Simply click on Patient Portal and then log into your account. If you would like to receive a full copy of your medical records, please contact the [facility] Medical Records Department by calling [phone], Friday through Friday between 8 a.m. and [...] Call your local pharmacy or go to http://bit.Milabra/[email or web address] to find one close to you.3.Make use of household items: Use cat litter or old coffee grounds to dispose medications if other options arenot available. Mix your drugs with these household products, seal them in an airtight container andthrow it into the garbage. Call [facility]: [phone] to be sure your drugs can be [...] aware that I should contact my doctor. 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 Name: LALY NAVAS Austen Anna/Sex: 1990 Female Med Rec #: [id number] Physician: Financial #: [id number] Pt. Type: S Room/Bed: [facility]/A Admit/Disch: 10/22/23 09:10:31 - Institution: [...] Tech Kathy A Role Performed Primary Surgeon Elastic Attacher Zigzag 1 Scrub Technologist Details Time In 10/22/23 14:47:00 10/22/23 14:31:00 10/22/23 14:31:00 Time Out 10/22/23 14:54:00 10/22/23 15:02:00 10/22/23 15:02:00 Procedure/Preference IR Nephrostomy Exchange IR Nephrostomy Exchange IR Nephrostomy Exchange Card (SN) (SN) (SN) Last Modified By: Cristina Simons RN, Tracie N RN Aller, Tracie N RN 10/22/23 14:56:59 10/22/23 14:56:59 10/22/23 14:56:59 Entry 4 Entry 5 Case Attendee Karolina Prater MATTHEW J CATHOLIC PRIEST-HUMANITIES PROFESSOR Role Performed Circulating Technologist HUMANITIES PROFESSOR Details Time In 10/22/23 14:31:00 10/22/23 14:31:00 [...] mL Medication OMNIPAQUE 300 50ML 10/PK Y-530 [facility] 5772-4236-33 Radiology Flouroscopy Fluoroscopy Used? Yes Fluoro Dose [...] Jacque labeled ELIANA Stern MATTHEW J appropriately CATHOLIC PRIEST-HUMANITIES PROFESSOR displayed, Alcohol based prep dry, Double verification [...] Radiology - Action Plan Outcomes Met? Yes Senior Network Engineer Cristina Simons RN Completing Procedure Plan Last Modified By: Cristina Simons RN 10/22/23 14:40:41 Case Comments Finalized By: Cristina Simons RN Document Signatures Signed By: Cristina Simons RN 10/22/23 14:57 Cristina Simons RN 10/22/23 15:04 [id number] Note ORIGINAL EXAMINATION: IR NEPHROSTOMY TUBE [id number]/22/2023 3:02 pm IR NEPHROSTOMY TUBE CHANGE HISTORY: [...] Sign Date: 10/22/2023 4:31:01 PM Ordering Provider: [facility]12-20-2023 Procedure note Interventional Radiology Procedure Note Pre-procedure Diagnosis: obstruction Post-procedure Diagnosis: same Procedure: 10F Neph exchange Technique/Findings: Routine left neph tube exchange. Anesthesia utilized. Full report to follow. Orders in [facility]. Performed by: Viral Mason MD, PhD Glass Enamel Mixer: None Complications: None Estimated Blood loss: Minimal Specimen: None Digitally Signed by VIRAL MASON MD, Ph.D on 10/22/2023 02:58 PM [facility] HospitalGducakxn64-05-1620 Anesthesiology Consult note Patient: LALY NAVAS Age: [...] food, # 120 EA, 0 Refill(s), Pharmacy: [facility], 167.6, cm, 05/15/23 15:33:00 EDT, Height LORazepam 1 mg oral tablet: Dose : 1 mg = 1 tab(s), Oral, BID, # 60 tab(s), 0 Refill(s), [facility] [employer] Cancer related pain History of cervical cancer, 167.6, cm, 09/03/23 13:59:00 EDT, Height, 63.6, kg, 09/03/23 13:59:00 EDT, Dosing Weight OxyContin 15 mg oral tablet, extended release: Dose : 15 mg = 1 tab(s), Oral, BID, # 60 tab(s), 0 Refill(s), Pharmacy: [facility] [employer] Cancer related pain Cervical ca, 167.6, cm, 09/03/23 13:59:00 EDT, Height, 63.6, kg, 09/03/23 13:59:00 EDT, Dosing Weight ondansetron 4 mg oral tablet: Dose : 4 mg = 1 tab(s), Oral, q6h, PRN Nausea/Vomiting, # 60 tab(s), 2 Refill(s), Pharmacy: [facility] 167.6, cm, 09/03/23 13:59:00 EDT, Height, kg, 09/03/23 13:59:00 EDT, Dosing Weight oxyCODONE 15 mg oral tablet ( IMMEDIATE release ): Dose : 15 mg = 1 tab(s), Oral, q6hr, may fill on10/05/23, # 120 tab(s), 0 Refill(s), Pharmacy: [facility] Cervical cancer, 167.6, cm, 09/03/23 13:59:00 EDT, [...] Problem list: Medical Anxiety / SNOMED CT 09439476 / Confirmed Asthma / SNOMED CT 998234433 / Confirmed Decreased appetite / SNOMED CT 414790299 / Confirmed Dehydration / SNOMED CT 19002524 / Confirmed Port-A-Cath in place / SNOMED CT 7330440227 / Confirmed Bilateral flank pain / SNOMED CT 450555275 / Confirmed History of chemotherapy / SNOMED CT 1767866573 / Confirmed Hx of cervical cancer / SNOMED CT 1285856226 / Confirmed History of radiation therapy / SNOMED CT 0017212118 / Confirmed Hydronephrosis, left / SNOMED CT 74872196 / Confirmed Acute kidney injury / SNOMED CT 86866556 / Confirmed Left flank pain / SNOMED CT 001890112 / Confirmed Cervical cancer / SNOMED CT 883114822 / Confirmed Moderate protein-calorie malnutrition / SNOMED CT 985513563 / Confirmed Nausea and vomiting / SNOMED CT 56687066 / Confirmed Cancer related pain / SNOMED CT 2484838880 / Confirmed DVT prophylaxis / SNOMED CT 657106701 / Confirmed Palliative care encounter / SNOMED CT 015872420 / Confirmed Premature menopause / SNOMED CT 3691992927 / Confirmed Pyelonephritis / SNOMED CT 89567865 / Confirmed Nephrostomy status / SNOMED CT 182004824 / Confirmed Complicated UTI (urinary tract infection) / SNOMED CT 847432794 / Confirmed Obstructive uropathy / SNOMED CT 22077537 / Confirmed, Active Problems (28) Acute kidney [...] ESBL (extended spectrum beta-lactamase) producing bacteria infection (0882596907): Onset on 02/23/2023 at 32 years. Resolved on 05/07/2023 at 32 years. ESBL (extended spectrum beta-lactamase) producing bacteria infection (1564789828): Onset on 08/09/2022 at 31 years. Resolved on 01/02/2023 at 32 years. Comments: 01/02/2023 SUMEET 10:02 JAMAL Haynes Removed ESBL disease alert from 08/2022 per infection control protocol on 01/02/23. Mass of cervix (486595727): Resolved. Chronic kidney disease, stage 3 (moderate) (5869881147): Resolved. Hydronephrosis of left kidney (09616609): Resolved. Cervicitis (464907717): Resolved. Encounter for antineoplastic chemotherapy (578034858): Resolved. Tinnitus (487496080): Resolved. History of COVID-19 (2323887189): Resolved. Family History: Cancer Sister COPD - Chronic obstructive pulmonary disease Mother Kidney stone Mother Asthma Mother Breast cancer Mother Hypertension Mother Heart disease Mother Substance abuse Father Alcohol abuse Father Stroke Grandparent Father Heart attack Mother Diabetes Grandparent Procedure history: Nephrostomy with tube drainage (20914059) in the month of 07/2023 at 32 Years. Comments: 06/13/2020 10:09 JAMAL Guaman left Nephrostomy with tube drainage (17026844) on 01/10/2021 at 30 Years. Cannulation of Portacath (189446720) in 2020 at 30 Years. Comments: 06/13/2020 10:09 JAMAL Guaman right JJ stent (1525515810) on 11/15/2020 at 29 Years. Radiation (251625013) in the month of 06/2020 at 29 Years. Comments: 06/26/2020 6:12 JAMAL Braswell A via tandems and oviod X2 Cervical biopsy (97672055) in 2019 at 29 Years. Comments: 04/12/2020 18:25 Eri Conte RN pt states she had a cervical biopsy done on 04/07/2020 at [facility] for a cervical mass Tumor cells, benign (29541463) in 2001 at 11 Years. 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 done at [facility] [place] Social History Social & Psychosocial Habits Alcohol [...] Resp Rate 16 br/min (OCT 22 10:16) OGV605 mmHg (OCT 22 10:16) DBP83 mmHg (OCT 22 10:16) Measurements from flowsheet : Measurements 10/22/2023 10:16 EST Height 167.6 cm Height in inches 66 inch(es) Admission Weight 61.4 kg Weight Lbs 135.1 lb [place] Body Weight 59.26 kg Admission Body Mass Index 21.86 m2 General: Alert and oriented. Airway: Mallampati classification: II (soft palate, fauces, uvula visible). Dentition Evaluation: Intact. Respiratory: Lungs are clear to auscultation, Respirations are non-labored. Cardiovascular: Normal rate, Regular rhythm. Heart Sounds: Normal. Neurologic: Alert, Oriented. Review / Management Results review: No qualifying data available . Documentation reviewed: Current records. Assessment and Plan [place] [employer] Anesthesiologists (ASA) physical status classification: Class III. Anesthetic Preoperative Plan Premedication: intravenous. Anesthetic technique: MAC. Postoperative pain management: Per surgeon. Informed consent: signed by patient. Notes: Cervical CA. Digitally Signed by OLE MONK MD on 10/22/2023 02:01 PM [facility] HospitalOxtwytys13-31-0535 Evaluation + Plan noteExtracted from: Title:IR Pre-Procedure [...] Ready to change: Yes. Physical Exam Vitals: Rvmrkpshbsr48.9 (10:16) Systolic Blood Dmxtaiig273 (10:16) Diastolic Blood Typpkwzy53 (10:16) Pulse76 (10:16) KmG1749 (10:16) Respiratory Rate16 (10:16) General: Alert, cooperative. Heart: Regular Lungs: Clear +LEFT neph tube The remainder of the physical exam is noncontributory. Labs Anticoagulation Labs No qualifying data available. No qualifying data available. Assessment/Treatment Plan LEFT nephrostomy tube exchange Post Procedure Discharge Plan Patient to be discharged home. Tadeo Leija PA-C Interventional Radiology Pager: [phone] IR dept: [phone] Available on Coxhealtht Future Appointments Appointment Date:10/31/2023 10:00:00 AM Scheduled Provider:BRITTNI LU Location:[facility]NA[facility] OF [facility]C Appointment Type:SO OV Follow Up Appointment Date:11/18/2023 09:30:00 AM Scheduled Provider:OLE PACE MD Location:[facility] Pall[facility] Appointment Type:PALL OV Follow Up Appointment Date:12/03/2023 11:00:00 AM Scheduled Provider: Location:IR Appointment Type:IR Nephrostomy Exchange Future Scheduled Tests Laboratory* Urinalysis 02/14/23 Radiology* IR Nephrostomy Exchange 12/03/23 * IR Neph Cath-Neph Ureter W/Guide Left 06/30/23 * IR Nephrostomy Tube Change Lt Guide 09/04/23 [facility] 12-20-2023 Note Interventional Radiology Focused Preprocedure [...] Ready to change: Yes. Physical Exam Vitals: Vqaqqmundlp82.9 (10:16) Systolic Blood Lrhykoup009 (10:16) Diastolic Blood Jbnjzvoo54 (10:16) Pulse76 (10:16) ErH9086 (10:16) Respiratory Rate16 (10:16) General: Alert, cooperative. Heart: Regular Lungs: Clear +LEFT neph tube The remainder of the physical exam is noncontributory. Labs Anticoagulation Labs No qualifying data available. No qualifying data available. Assessment/Treatment Plan LEFT nephrostomy tube exchange Post Procedure Discharge Plan Patient to be discharged home. Tadeo Leija PA-C Interventional Radiology Pager: [phone] dept: [phone] Available on Cortext Digitally Signed by TADEO LEIJA PA-C on 10/22/2023 01:31 PM [facility] HospitalXymlpdwn21-36-5584 Note. MICRO - Microbiology PROCEDURE: Blood Culture [...] Locations *1: This test was performed at: [facility], [address] [place] [address], [facility]- , [facility] ([place])07-24-2023 Hospital Discharge instructions Patient Education 07/24/2023 16:23:03 Radiology- Nephrostomy/Nephroureteral Tube Exchange 12/26/2022(CUSTOM) [facility] Nephrostomy/Nephroureteral Tube Exchange Discharge Instructions Interventional Radiology [facility] Imaging Services [address] [place] [address] The procedure that you had done today [...] the feeling of the need to urinate. Rkqs-mtw-skdmciw pain medication should be used for pain [...] the gauze. Supplies may be obtained at: [facility] [address] [facility] [address] [facility] Any questions or concerns, please contact your physician or Interventional Radiology at [phone] from 8-4:30pm Friday-Friday. If you do not have a follow up appointment scheduled at the time of discharge, please call Interventional Radiology at the number listed above. 07/24/2023 16:19:42 [facility] Discharge Instructions Template (08/2018)(CUSTOM) VANESSA SAME DAY [...] us better serve our patients. Form: 1522 (04008) R: 02/09 Follow Up Care 07/22/2023 14:03:34 With:MADELINE APARICIO MD, [facility] Address: [address] [place] [address] [place] [address] [phone] When: Unknown Comments:Follow-up as scheduled [facility] 09-21-2023 Nurse Progress note Patient returned [...] Tadeo Whitmore RN on 07/24/2023 04:51 PM [facility] HospitalSalkbxvx75-03-5957 Summary of episode note Discharge Instructions Thank you for allowing [facility] to assist you with your healthcare needs. The following is importantdischarge information regarding your hospital visit. Your Care Team FLIP MARTIN MD What to do next Scheduled Follow-Up Appointments Appointment Type When With Where Contact InformationSO OV Follow Up 07/30/2023 11:30 AM EDT FLIP MARTIN MD Gynecologic Oncology [address] [place] [address] PALL New Patient 07/31/2023 03:00 PM EDT OLE PACE MD Palliative Care IR Nephrostomy Tube Change Lt Guide 09/04/2023 01:00 PM EDT IR Follow Up Appointments Follow Up with MADELINE APARICIO MD, [facility] When Why: Follow-up as scheduled Where: [address] [place] [address] [facility] [place] [address] [phone] The Following Activity and Diet Have Been [...] medication providers or retail pharmacies. Education Materials ESPARTO Nephrostomy/Nephroureteral Tube Exchange Discharge Instructions Interventional Radiology [facility] Services [address] [place] [address] The procedure that you had done today [...] the feeling of the need to urinate. Mkxc-ebd-uwqxyfc pain medication should be used for pain [...] the gauze. Supplies may be obtained at: [facility] [address] [facility] [address] [facility] Any questions or concerns, please contact your physician or Interventional Radiology at [phone] from 8-4:30pm Friday-Friday. If you do not [...] us better serve our patients. Form: 1522 (67922) R: 02/09 Additional Information VACCINATE! IT SAVES LIVES! Members of the community who have not yet received the COVID-19 vaccine and would like to receive it can visit one of [facility] vaccine clinics. There are many vaccine clinic locations within the [facility]. For locations and available times, please visit [email or web address].[place].gov/. It is important to note that some COVID mobile vaccine clinics are held outdoors and may be canceled in rainy or stormy conditions. To learn more about pediatric vaccinations (ages 5-11), we invite you to visit the [facility] webpage. https://www.[facility].org/pages/5440-Duxtn-Rtuouigehlg-Umyucoyfad-Fqelz-Fou stions.htmlTo learn more about the COVID-19 vaccine, we invite you to visit the CDC website for a list of frequently asked questions.https://www.cdc.gov/coronavirus/2019-ncov/vaccines/faq.html [facility] Patient Portal Access Instructions: Stay connected with your healthcare team and access your personal medical information anytime with the [facility] Patient Portal. Please follow the directions below to create your [facility] account: 1.Access the email account you provided upon registration to the hospital/physician office.2.Look for an invitation email from [facility].3.Open the email and access the invitation link: AcceptInvitation to [facility].4.Fill in the required quintero to create your account. To access your account, visit [email or web address]. Click the blue button labeled Access Patient [...] who you will allowto register on the [facility] Patient Portal for access to your information. You can also access the [facility] Patient Portal on the [facility] joya. Simply click on Patient Portal and then log into your account. If you would like to receive a full copy of your medical records, please contact the [facility] Medical Records Department by calling [phone], Friday through Friday between 8 a.m. and [...] Call your local pharmacy or go to [email or web address] to find one close to you.3.Make use of household items: Use cat litter or old coffee grounds to dispose medications if other options arenot available. Mix your drugs with these household products, seal them in an airtight container andthrow it into the garbage. Call [facility]: [phone] to be sure your drugs can be [...] aware that I should contact my doctor. 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 Name: LALY NAVAS/Sex: 1990 Female Med Rec #: [id number] Physician: Financial #: [id number] Pt. Type: S Room/Bed: [facility] Admit/Disch: 07/24/23 09:40:57 - Institution: Allergies identified in patient's electronic medical record at time of printing on 07/24/23 Entry 1 Entry 2 Substance Oranges penicillin Reaction Type Allergy Allergy Last Modified By: Shoshana Renteria RN, Kimberly V. RN 07/21/23 10:11:02 07/21/23 10:10:45 Case Attendance- IR Entry 1 Entry 2 Entry 3 Case Attendee MADELINE APARICIO MD, MATTHEW C Aller, Tracie N RN CATHOLIC PRIEST-HUMANITIES PROFESSOR Role Performed Primary Surgeon HUMANITIES PROFESSOR Elastic Attacher Zigzag 1 Details Time In 07/24/23 12:59:00 07/24/23 [...] mL Medication OMNIPAQUE 300 50ML 10/PK Y-530 [facility] 7809-0188-87 Radiology Flouroscopy Fluoroscopy Used? Yes Fluoro Dose [...] Allergies Reviewed Patient With Last Modified By: Cirstina Simons RN 07/24/23 12:45:03 Radiology Protocols/Time Out- [...] Time Out DENISE BUCIO Relevant images and CATHOLIC PRIEST-Kristyn ESPINOZA, results are properly Cristina Hitchcock RN, Bárbara, johnny and Orchestrator Leatha Austen, appropriately Elaine Orchestrator sarai Lida Veronique Confirm/obtain preop antibiotic order., Alcohol based prep [...] Chest, Groin Side Left Right By Bárbara Orchestrator Leatha Granger, Orchestrator Leatha Austen Boyce Prep Agents Betadine Solution Chloraprep Hair Removal Method N/A Clipped Last Modified By: Elaine Orchestrator Sam Henry 07/24/23 Lida Piper 07/24/23 14:12:39 14:12:39 Patient [...] Radiology - Action Plan Outcomes Met? Yes Senior Network Engineer Cristina Simons RN Completing Procedure Plan Last Modified By: Cristina Simons RN 07/24/23 12:48:58 Case Comments Finalized By: Sam Henry Document Signatures Signed By: Cristina Simons RN 07/24/23 13:58 Sam Henry 07/24/23 14:15 Sam Henry 07/24/23 14:16 [id number] Evaluation + Plan noteExtracted from: Title:IR Pre-Procedure [...] 06/26/23 and can be found in the [facility] ([employer]). Milagro Mcgarry PA-C Interventional Radiology IR Dept [id number] Available on [facility] Future Appointments Appointment Date:07/30/2023 11:30:00 AM Scheduled Provider:FLIP MARTIN MD Location:[facility] Appointment Type:SO OV Follow Up Appointment Date:07/31/2023 03:00:00 PM Scheduled Provider:OLE PACE MD Location:[facility] Palliative Appointment Type:PALL New Patient Appointment Date:09/04/2023 01:00:00 PM Scheduled Provider: Location:IR Appointment Type:IR Nephrostomy Tube Change Lt Guide Future Scheduled Tests Laboratory* Pathology Metal Window Frame Maker Request 05/15/23 * Urinalysis 02/14/23 Radiology* IR [...] IR Nephrostomy Tube Change Lt Guide 06/21/24 [facility] 09-21-2023 Note* Cristina Simons RN: Cristina Fuentes RN: SIGN, AUTHOR Cristina Simons RN: AUTHOR, AUTHOR, PERFORM, SIGN Sam Henry K: SIGN, AUTHOR Sam Henry K: AUTHOR Event Display: IR Procedure Record Authored Date: IR Procedure Record Summary Primary Physician: MADELINE APARICIO MD Finalized Date/Time: 07/24/23 14:16:14 Pt. Name: LALY NAVAS /Sex: 1990 Female Med Rec #: [id number] Physician: Financial #: [id number] Pt. Type: S Room/Bed: [facility] Admit/Disch: 07/24/23 09:40:57 - Institution: Allergies identified in patient's electronic medical record at time of printing on 07/24/23 Entry 1 Entry 2 Substance Oranges penicillin Reaction Type Allergy Allergy Last Modified By: Shoshana Renteria RN, Kimberly V. RN 07/21/23 10:11:02 07/21/23 10:10:45 Case Attendance- IR Entry 1 Entry 2 Entry 3 Case Attendee MADELINE APARICIO MD, MATTHEW C Aller, Tracie N RN CATHOLIC PRIEST-HUMANITIES PROFESSOR Role Performed Primary Surgeon HUMANITIES PROFESSOR Elastic Attacher Zigzag 1 Details Time In 07/24/23 12:59:00 07/24/23 [...] mL Medication OMNIPAQUE 300 50ML 10/PK Y-530 [facility] 9093-1430-43 Radiology Flouroscopy Fluoroscopy Used? Yes Fluoro Dose [...] Time Out DENISE BUCIO Relevant images and CATHOLIC PRIEST-Kristyn ESPINOZA, results are properly Cristina Hitchcock RN, Bárbara, johnny and OrchestratorMendel Boyce, appropriately Sam Henry Amanda K Confirm/obtain [...] Henry Rad Tech Amanda K 07/24/23 Lida Veronique 07/24/23 14:12:39 14:12:39 Patient Positioning- IR Entry [...] Radiology - Action Plan Outcomes Met? Yes Senior Network Engineer Cristina Simons RN Completing Procedure Plan Last Modified By: Cristina Simons RN 07/24/23 12:48:58 Case Comments <None> Finalized By: Sam Henry Document Signatures Signed By: Cristina Simons RN 07/24/23 13:58 Sam Henry 07/24/23 14:15 Sam Henry 07/24/23 14:16 [facility] 09-21-2023 History and physical note IR [...] 06/26/23 and can be found in the [facility] ([employer]). Milagro Mcgarry PA-C Interventional Radiology IR Dept [id number] Available on [employer]ext Digitally Signed by MILAGRO MCGARRY PA-C on 07/24/2023 12:20 PM Digitally Signed by MADELINE APARICIO MD on 07/24/2023 05:58 PM [facility] [id number] Anesthesiology Consult note Patient: LALY NAVAS Age: [...] Medical Left flank pain / SNOMED CT 549473452 / Confirmed Nausea and vomiting / SNOMED CT 75622158 / Confirmed Dehydration / SNOMED CT 85670446 / Confirmed Asthma / SNOMED CT 885544620 / Confirmed Obstructive uropathy / SNOMED CT 76867514 / Confirmed Acute kidney injury / SNOMED CT 21994244 / Confirmed Moderate protein-calorie malnutrition / SNOMED CT 221284604 / Confirmed Port-A-Cath in place / SNOMED CT 3230568871 / Confirmed History of chemotherapy / SNOMED CT 6984950062 / Confirmed History of radiation therapy / SNOMED CT 3277319136 / Confirmed Complicated UTI (urinary tract infection) / SNOMED CT 464694408 / Confirmed Anxiety / SNOMED CT 73011511 / Confirmed DVT prophylaxis / SNOMED CT 819977393 / Confirmed Decreased appetite / SNOMED CT 399241525 / Confirmed Cervical cancer / SNOMED CT 637007104 / Confirmed Nephrostomy status / SNOMED CT 857128788 / Confirmed Premature menopause / SNOMED CT 5752265375 / Confirmed Pyelonephritis / SNOMED CT 36457878 / Confirmed Bilateral flank pain / SNOMED CT 623204485 / Confirmed Cancer related pain / SNOMED CT 6942383763 / Confirmed, Active Problems (25) Acute kidney [...] ESBL (extended spectrum beta-lactamase) producing bacteria infection (7786705646): Onset on 02/23/2023 at 32 years. Resolved on 05/07/2023 at 32 years. ESBL (extended spectrum beta-lactamase) producing bacteria infection (6651737215): Onset on 08/09/2022 at 31 years. Resolved on 01/02/2023 at 32 years. Comments: 01/02/2023 EST 10:02 JAMAL Holloway Removed ESBL disease alert from 08/2022 per infection control protocol on 01/02/23. Mass of cervix (962009338): Resolved. Chronic kidney disease, stage 3 (moderate) (9669988638): Resolved. Hydronephrosis of left kidney (17504079): Resolved. Cervicitis (089580265): Resolved. Encounter for antineoplastic chemotherapy (468033466): Resolved. Tinnitus (427908516): Resolved. History of COVID-19 (5937583080): Resolved. Family History: Cancer Sister COPD - Chronic obstructive pulmonary disease Mother Kidney stone Mother Asthma Mother Breast cancer Mother Hypertension Mother Heart disease Mother Substance abuse Father Alcohol abuse Father Stroke Grandparent Father Heart attack Mother Diabetes Grandparent Procedure history: Nephrostomy with tube drainage (54144748) in the month of 07/2023 at 32 Years. Comments: 06/13/2020 10:09 JAMAL Guaman left Nephrostomy with tube drainage (15729077) on 01/10/2021 at 30 Years. Cannulation of Portacath (667353753) in 2020 at 30 Years. Comments: 06/13/2020 10:09 JAMAL Guaman right JJ stent (4874102120) on 11/15/2020 at 29 Years. Radiation (333307145) in the month of 06/2020 at 29 Years. Comments: 06/26/2020 6:12 GINNY Burton RN Mayi A via tandems and oviod X2 Cervical biopsy (07731043) in 2019 at 29 Years. Comments: 04/12/2020 18:25 Eri Conte RN pt states she had a cervical biopsy done on 04/07/2020 at [facility] for a cervical mass Tumor cells, benign (89545221) in 2001 at 11 Years. 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 done at [facility] [place] Social History Social & Psychosocial Habits Alcohol [...] Resp Rate 18 br/min (JUL 24 10:08) GYM040 mmHg (JUL 24 10:08) DBP83 mmHg (JUL 24 10:08) Measurements from flowsheet : Measurements 07/24/2023 10:08 EDT Height 167.6 cm Height in inches 66 inch(es) Admission Weight 67.8 kg Weight Lbs 149.2 lb Weight Method Actual [place] Body Weight 59.26 kg Type of Scale [...] Weight Lbs 149.2 lb Weight Method Actual [place] Body Weight 59.26 kg Type of Scale [...] Devices Nephrostomy Skin Temperature Warm Skin Description [place], Dry Skin Integrity Intact Characteristics of Speech [...] CATH EXCHANGE AUTH . Assessment and Plan [place] Society [employer] Anesthesiologists (ASA) physical status classification: Class III. Anesthetic Preoperative Plan Anesthetic technique: General. Induction: intravenously. Maintenance airway: Oral endotracheal tube. Postoperative pain management: Per surgeon. Risks discussed: nausea, vomiting, headache, sore throat, dental injury, hypotension, allergic reaction, serious complications. Informed consent: signed by patient. Notes: smoker, asthma, cervical CA. Digitally Signed by MARIN COTE MD on 07/24/2023 12:05 PM [facility] [id number] Procedure note Brief IR Post Procedure Note - Outpatient Pre Procedure Dx: Cervical ca hx, left ureteral scarring requiring chronic catheter, poor compliance where prior PCNU was stuck in ureter, fibrin sheath of port Post Procedure Dx: Same Procedure: 1. Conversion of left PCNU to PCN 2. Port venogram 3. Port catheter fibrin sheath stripping Tanker Driver: Markus Glass Enamel Mixer: None Anesthesia: Local, MAC EBL: Minimal Complications:None [...] MD Vascular & Interventional Radiology [facility] ([facility]) Vamsi [email or web address] Pager: [phone] [facility] Dept (26/05): [phone] [facility] [id number] [facility] Digitally Signed by MADELINE APARICIO MD on 07/24/2023 01:58 PM [facility] HospitalKicpsodt31-62-7731 Hospital Discharge instructions Patient Education 07/16/2023 13:40:49 [...] strategies to do this. General instructions Take stsx-xea-jwjoymy and prescription medicines only as told by [...] 07/12/2003 Document Revised: 10/02/2018 Document Reviewed: 04/08/2017 [employer] Patient Education 2020 [employer] Follow Up Care 07/08/2023 20:13:58 With:OLE PACE MD Address: [address] [facility] [place] [address]- [phone] When:07/24/2023 15:00:00 With:FLIP MARTIN MD Address: [address] [facility] [place] [address]- [phone] When:07/30/2023 11:30:00 [facility] 09-13-2023 Palliative care Progress note Awaiting prior auth Digitally Signed by SANTINO SAWYER MD on 07/16/2023 06:16 AM [facility] HospitalSsoxjrbz47-67-8245 Note Date of Service 07/16/23 Subjective Patient [...] Tract Infection - 07/07/23 Patient presented to [facility] for UTI symptoms. - Urinalysis on 07/07 was remarkable for signs of UTI at [facility]. Patient was placed on BactrimDS twice daily x10 days for outpatient management after discussion with Dr. Hilliard. - 07/07/23 CT abdomen/pelvis obtained at that time showed Left-sided nephrostomy is present extendingto the bladder. There is an irregularly shaped hypodense focus in the upper pole of the kidney without enhancement. Mucosal thickening versus underfilling of the colon. - 07/08 Patient again presents to [facility] with N/V, pain and UTI symptoms - [...] supposed to see Dr. Andrea at [facility]. Referral was sent to this provider to be scheduled end of May/early June. Patient did not do this. - Discussion with Dr. Martin via telehealth visit, patient was encouraged again to follow-up with [facility] urology for possible nephrectomy in order to [...] evaluation as above, and f/u with Dr. Pace forpain management Will discuss the above with Dr. Hilliard Digitally Signed by LUZ MARIA GODOY DO on 07/16/2023 06:55 AM [facility] HospitalLkpzoozs70-67-0102 Note Discharge Instructions Thank you for allowing [facility] to assist you with your healthcare needs. [...] 07/24/2023 11:25 AM EDT Main OR [phone] IR Neph Cath-Neph Ureter W/Guide Left 07/24/2023 12:00 PM EDT IR PALL New Patient 07/24/2023 03:00 PM EDT OLE PACE MD Palliative Care SO OV Follow Up 07/30/2023 11:30 AM EDT FLIP MARTIN MD Gynecologic Oncology [address] [place] [address] Follow Up Appointments Follow Up with FLIP MARTIN MD When 07/30/2023 11:30 AM EDT Where: [address] [place] [address] [place] [address]- [phone] The Following Activity and Diet Have Been [...] Cervical ca Duration: 9 Days Pickup at [facility]. Changed LORazepam (LORazepam 1 mg oral tablet) 1 tab(s) by mouth Every 8 hours Changed oxyCODONE (oxyCODONE 5 mg oral tablet ( IMMEDIATE release )) 3 tab(s) by mouth Every 4 hours as needed for as needed for pain Cancer related pain Cervical ca Duration: 7 Days Pickup at [facility]. Changed oxyCODONE (OxyContin 15 mg oral tablet, extended release) 1 tab(s) by mouth Two (2) times a day Cancer related pain Cervical ca Pickup at [facility]. Unchanged calcium-vitamin D (Calcium Plus Vitamin D3 [...] hours as needed for Nausea/Vomiting Pharmacy Information [facility] [address] [place], [place] [id number] [phone] Please take this list to your next [...] strategies to do this. General instructions Take bbch-opi-lxdlhjb and prescription medicines only as told by [...] 07/12/2003 Document Revised: 10/02/2018 Document Reviewed: 04/08/2017 [employer] Patient Education 2020 [employer]. Additional Information VACCINATE! IT SAVES LIVES! Members of the community who have not yet received the COVID-19 vaccine and would like to receive it can visit one of [facility] vaccine clinics. There are many vaccine clinic locations within the [facility]. For locations and available times, please visit https://gettheshot.coronavirus.[place].gov/. It is important to note that some COVID mobile vaccine clinics are held outdoors and may be canceled in rainy or stormy conditions. To learn more about pediatric vaccinations (ages 5-11), we invite you to visit the [facility] webpage. https://www.[email or web address].[email or web address]/pages/[email or web address]-Pzoni-Vjfnhmdosqd-Hlfnbetctr-Qepsa-Hru stions.htmlTo learn more about the COVID-19 vaccine, we invite you to visit the CDC website for a list of frequently asked questions.https://www.cdc.gov/coronavirus/2019-ncov/vaccines/faq.html [facility] Patient Portal Access Instructions: Stay connected with your healthcare team and access your personal medical information anytime with the [facility] Patient Portal. Please follow the directions below to create your [employer] account: 1.Access the email account you provided upon registration to the hospital/physician office.2.Look for an invitation email from [facility].3.Open the email and access the invitation link: AcceptInvitation to [facility].4.Fill in the required quintero to create your account. To access your account, visit [email or web address]. Click the blue button labeled Access Patient [...] who you will allowto register on the [facility] Patient Portal for access to your information. You can also access the [facility] Patient Portal on the [facility] joya. Simply click on Patient Portal and then log into your account. If you would like to receive a full copy of your medical records, please contact the [facility] Medical Records Department by calling [phone], Friday through Friday between 8 a.m. and [...] Call your local pharmacy or go to http://bit.ly/5Y5Kp7h to find one close to you.3.Make use of household items: Use cat litter or old coffee grounds to dispose medications if other options arenot available. Mix your drugs with these household products, seal them in an airtight container andthrow it into the garbage. Call [facility]: [phone] to be sure your drugs can be [...] aware that I should contact my doctor. 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 - Urinalysis on 07/07 was remarkable for signs of UTI at [facility]. Patient was placed on BactrimDS twice daily x10 days for outpatient management after discussion with Dr. Hilliard. - 07/07/23 CT abdomen/pelvis obtained at that time showed Left-sided nephrostomy is present extendingto the bladder. There is an irregularly shaped hypodense focus in the upper pole of the kidney without enhancement. Mucosal thickening versus underfilling of the colon. - 07/08 Patient again presents to [facility] with N/V, pain and UTI symptoms - [...] Contin was discontinued at that time. She wasstarted on oxycodone 10 mg every 6 hours [...] supposed to see Dr. Andrea at [facility]. Referral was sent to this provider to be scheduled end of May/early June. Patient did not do this. - Discussion with Dr. Martin via telehealth visit, patient was encouraged again to follow-up with [facility] urology for possible nephrectomy in order to [...] MARIA GODOY DO on 07/16/2023 06:55 AM [facility] HospitalNantmgbs00-12-1478 Palliative care Progress note Awaiting prior auth Digitally Signed by SANTINO SAWYER MD on 07/16/2023 06:16 AM [facility] HospitalUdkizgej23-09-4620 Palliative care Progress note Chart reviewed in detail. EKG remains pending to evaluate for possible QTc prolongation in anticipation of possibly starting methadone. Per documentation, patient resistant to starting methadone. Prescription written for oxycodone, OxyContin in anticipation of discharge tomorrow in case there is prior authorization needed. Digitally Signed by SANTINO SAWYER MD on 07/15/2023 12:19 PM [facility] HospitalWieocswn56-32-1606 Palliative care Progress note Chart reviewed in detail. EKG remains pending to evaluate for possible QTc prolongation in anticipation of possibly starting methadone. Per documentation, patient resistant to starting methadone. Prescription written for oxycodone, OxyContin in anticipation of discharge tomorrow in case there is prior authorization needed. Digitally Signed by SANTINO SAWYER MD on 07/15/2023 12:19 PM [facility] HospitalDzflhmqt36-03-7479 Note Date of Service 07/15/2023 Chief Complaint [...] Urinary Tract Infection -07/07/23 Patient presented to [facility] for UTI symptoms. - Urinalysis on 07/07 was remarkable for signs of UTI at [facility]. Patient was placed on BactrimDS twice daily x10 days for outpatient management after discussion with Dr. Hilliard. - 07/07/23 CT abdomen/pelvis obtained at that time showed Left-sided nephrostomy is present extendingto the bladder. There is an irregularly shaped hypodense focus in the upper pole of the kidney without enhancement. Mucosal thickening versus underfilling of the colon. -07/08 Patient again presents to [facility] with N/V, pain and UTI symptoms -Patient [...] supposed to see Dr. Andrea at [facility]. Referral was sent to this provider to be scheduled end of May/early June. Patient did not dothis. -Discussion with Dr. Martin via telehealth visit, patient was encouraged again to follow-up with [facility] urology for possible nephrectomy in order to [...] ANGELA ALVARADO DO on 07/15/2023 06:33 AM [facility] HospitalZdfpiqkk98-25-9478 Nurse Progress note Nephrostomy dressing changed. Site [...] Elicia Rojo RN on 07/15/2023 10:28 AM [facility] HospitalBxsezmgc42-01-9953 Note Date of Service 07/15/2023 Chief Complaint [...] Urinary Tract Infection -07/07/23 Patient presented to [facility] for UTI symptoms. - Urinalysis on 07/07 was remarkable for signs of UTI at [facility]. Patient was placed on BactrimDS twice daily x10 days for outpatient management after discussion with Dr. Hilliard. - 07/07/23 CT abdomen/pelvis obtained at that time showed Left-sided nephrostomy is present extendingto the bladder. There is an irregularly shaped hypodense focus in the upper pole of the kidney without enhancement. Mucosal thickening versus underfilling of the colon. -07/08 Patient again presents to [facility] with N/V, pain and UTI symptoms -Patient [...] supposed to see Dr. Andrea at [facility]. Referral was sent to this provider to be scheduled end of May/early June. Patient did not dothis. -Discussion with Dr. Martin via telehealth visit, patient was encouraged again to follow-up with [facility] urology for possible nephrectomy in order to [...] ANGELA ALVARADO DO on 07/15/2023 06:33 AM [facility] HospitalYcmdtrlz31-79-4232 Palliative care Progress note Date of Service [...] SANTINO SAWYER MD on 07/14/2023 03:31 PM [facility] HospitalJdngclkf52-01-4862 Note Date of Service 07/14/2023 Chief Complaint [...] Urinary Tract Infection -07/07/23 Patient presented to [facility] for UTI symptoms. - Urinalysis on 07/07 was remarkable for signs of UTI at [facility]. Patient was placed on BactrimDS twice daily x10 days for outpatient management after discussion with Dr. Hilliard. - 07/07/23 CT abdomen/pelvis obtained at that time showed Left-sided nephrostomy is present extendingto the bladder. There is an irregularly shaped hypodense focus in the upper pole of the kidney without enhancement. Mucosal thickening versus underfilling of the colon. -07/08 Patient again presents to [facility] with N/V, pain and UTI symptoms -Patient [...] the same - consult to psych, onc socially responsible investment adviser, nurse navigator - plan for patient to follow up with pain management outpatient. Left Nephrostomy Tube -Patient was scheduled with interventional radiology for nephroureteral tube change on 06/24/2023. Patient did not show for appointment. -Patient does not currently follow with a urologist. She was supposed to see Dr. Andrea at [facility]. Referral was sent to this provider to be scheduled end of May/early June. Patient did not dothis. -Discussion with Dr. Martin via telehealth visit, patient was encouraged again to follow-up with [facility] urology for possible nephrectomy in order to [...] ANGELA ALVARADO DO on 07/14/2023 06:45 AM [id number] Mental health Consult note Date of Service [...] Patient reports that she lives alone in [facility], and due to her chronic health [...] 4 different options for psychotherapy follow-up in [place], where she lives, including family life counseling, the counseling center, [facility], and [facility]. She expresses understanding and agrees to consider. [...] mg= 1 tab(s), Oral, qDay Sterile Water ALF, 2.2 mL, IV Push, prep pharm Zofran, [...] CAIO KNOX MD on 07/14/2023 08:48 AM [facility] [id number] Note Date of Service 07/14/2023 Chief Complaint [...] Urinary Tract Infection -07/07/23 Patient presented to [facility] for UTI symptoms. - Urinalysis on 07/07 was remarkable for signs of UTI at [facility]. Patient was placed on BactrimDS twice daily x10 days for outpatient management after discussion with Dr. Hilliard. - 07/07/23 CT abdomen/pelvis obtained at that time showed Left-sided nephrostomy is present extendingto the bladder. There is an irregularly shaped hypodense focus in the upper pole of the kidney without enhancement. Mucosal thickening versus underfilling of the colon. -07/08 Patient again presents to [facility] with N/V, pain and UTI symptoms -Patient [...] the same - consult to psych, onc socially responsible investment adviser, nurse navigator - plan for patient to follow up with pain management outpatient. Left Nephrostomy Tube -Patient was scheduled with interventional radiology for nephroureteral tube change on 06/24/2023. Patient did not show for appointment. -Patient does not currently follow with a urologist. She was supposed to see Dr. Andrea at [facility]. Referral was sent to this provider to be scheduled end of May/early June. Patient did not dothis. -Discussion with Dr. Martin via telehealth visit, patient was encouraged again to follow-up with [facility] urology for possible nephrectomy in order to [...] ANGELA ALVARADO DO on 07/14/2023 06:45 AM [facility] [id number] Palliative care Consult note Date of Service 07/11/2023 Reason for Consult Cancer related pain management Participants in Discussion Lizy, the patient History of Present Illness Lizy Navas is a 32-year-old, Nigerian-speaking, female with past medical history of advanced [...] She has never completed healthcare power of divorce attorney. We discussed legal surrogate decision making hierarchy. She would not want her family making decisions regarding her medical care. Provided information regarding healthcare power of divorce attorney. She would like totalk to her friend about this. We offered to complete healthcare power of divorce attorney here in hospitalbut if she is discharged prior to completing this she knows she can complete healthcare power of divorce attorney paperwork outpatient as well. Problem List/Past [...] 2 mL, IV Push, q6h Sterile Water ALF, 2.2 mL, IV Push, prep pharm Toradol, [...] SANITNO SAWYER MD on 07/11/2023 02:36 PM [facility] [id number] Nurse Progress note patient states that she fell, she thinks she passed out. Neuro assessment negative, no evidence of injury. charge nurse notified Digitally Signed by JAMAL Ferrer on 07/10/2023 04:10 PM [facility] [id number] Note. MICRO - Microbiology PROCEDURE: Urine Culture [...] Locations *1: This test was performed at: [facility], [address] [place] [address], [id number] , [facility] ([place])07-10-2023 Note. MICRO - Microbiology PROCEDURE: Urine Culture [...] Locations *1: This test was performed at: [facility], [address] [place] [address], [id number]- , [facility] ([place])07-10-2023 NoteORIGINAL PROCEDURE: IR NEPHROSTOMY TUBE CHANGE MODERATE CONSCIOUS SEDATION 07/09/2023 HISTORY: ORDERING SYSTEM PROVIDED HISTORY: Reason for Exam: Overdue for nephrostomy tube exchange, last changed in April Routine nephroureteral stent check unchanged TECHNIQUE: Parada portions of the exam: 1. Retrieval of foreign body. 2. Antegrade nephrostogram. 3. Angioplasty of the ureter. 4. Replacement of nephroureteral stent with up sizing to 10 Afghan CONTRAST: 80 cc SEDATION: Moderate sedation was ordered and supervised by the attending with physician apeq-zf-pbmc monitoring. Medications were provided and recorded by Radiology nurses. FLUOROSCOPY DOSE AND TYPE: Radiation Exposure Index: 26.1 minutes of fluoroscopic time was 344 AKA, DESCRIPTION OF PROCEDURE: Informed consent was obtained after a detailed explanation of the procedure including risks, benefits, and alternatives. Payne protocol was observed. Sterile gowns, masks, hats [...] made to attempt exchange of an 8 Afghan nephroureteral stent. Under fluoroscopic guidance, a all [...] significant amount of backwards pressure, the 8 Afghan nephroureteral stent is unable to be pulled. [...] the bladder. At this point, a 7 Afghan 45 cm sheath is now advanced into the bladder from the nephrostomy tube access through the ureter at which point, a 15 mm 6 Afghan snare is advanced and used to snare the broken piece of 014 wire with retrieval of foreign body performed. Next, a new nephroureteral stent is advanced. Given that the 8 Afghan had occluded previously, decision was made to place a 10 Afghan nephroureteral stent. Over the stiff glide, a [...] Ordering Provider: SASHA [facility] ([place])07-10-2023 Note ORIGINAL PROCEDURE: VR PORTOGRAPHY MODERATE CONSCIOUS SEDATION 07/09/2023 HISTORY: ORDERING SYSTEM PROVIDED HISTORY: Reason for Exam: port not aspirating TECHNIQUE: The previously accessed MediPort (Lujan needle) was injected with contrast and fluoroscopic images are obtained. CONTRAST: 20 cc of Visipaque SEDATION: Moderate sedation was ordered and supervised by the attending with physician ohuf-nr-[id number] monitoring. Medications were provided and recorded by Radiology nurses. FLUOROSCOPY DOSE AND TYPE: Radiation Exposure Index: 12 AK, total fluoro time was 22 seconds DESCRIPTION OF PROCEDURE: Informed consent was obtained after a detailed explanation of the procedure including risks, benefits, and alternatives. Payne protocol was observed. Sterile gowns, masks, hats [...] Sign Date: 07/10/2023 10:42:17 AM Ordering Provider: [facility] RANDALLIAPRAKASH [facility] ([place])07-10-2023 Note System generated consult for an established nephrostomy tube and was exchanged yesterday. Securement DSG: gauze & transparent DSG is dry and intact. Recommend to change as needed at least every 7days. Digitally Signed by Rhea Pruett RN, Skin Team on 07/10/2023 09:37 AM [facility] [id number] Note IR Procedure Record Summary Primary Physician: JOHANNA JEAN BAPTISTE MD Finalized Date/Time: 07/10/23 09:11:10 Pt. Name: LALY NVAAS Austen GardnerB./Sex: 1990 Female Med Rec #: [id number] Physician: FLIP MARTIN MD Financial #: [id number] Pt. Type: I Room/Bed: 6672/A Admit/Disch: 07/08/23 [...] JEAN BAPTISTE MD, Tracie N RN Lee, JAMAL Boyce Role Performed Primary Surgeon Procedure Nurse Elastic Attacher Zigzag 1 Details Time In 07/09/23 11:45:00 07/09/23 [...] Hultman, Rad Tech Amanda K 07/09/23 Lida K 07/09/23 Lida K [...] W/Guide S Last Modified By: Sam Henry OrchestratorMendel Henry Orchestrator Lida Piper 07/09/23 Lida K 07/09/23 Lida K 07/09/23 14:10:01 14:10:01 14:10:01 Entry 7 Entry 8 Entry 9 Case Attendee Karolina Prater, OrchestratorCristina Mckeon RN Role Performed Scrub Technologist Circulating [...] W/Guide S Last Modified By: Sam Henry Orchestrator Elaine, Orchestrator Lida Piper 07/09/23 Lida K 07/09/23 Lida [...] Primary Procedure Yes No No Primary Surgeon MUFTI, SALJOHANNA MARRERO MD, MD, SALMAN S MD Anesthesia/Sedation Local, IV Sedation Local, IV Sedation Local, IV Sedation Type Additional Procedure Times Start 07/09/23 12:20:00 07/09/23 12:20:00 07/09/23 12:20:00 Stop 07/09/23 13:45:00 07/09/23 13:45:00 07/09/23 13:45:00 Specialty Service SN Radiology Procedure SN Radiology Procedure SN Radiology Procedure EBL 5 mL 0 mL 0 mL Last Modified By: Sam Henry OrchestratorMendel Henry Orchestrator Lida Piper 07/09/23 Lida K 07/09/23 Lida K 07/09/23 14:10:23 14:10:30 14:10:42 Radiology Procedure Details - IR Entry 1 Radiology Sedation Case Times Sedation Start Time 07/09/23 12:22:00 Sedation Stop Time 07/09/23 13:45:00 Sedation Total Time 1hr 23min Radiology - Fluid/Drainage Radiology Contrast Contrast Used? Yes Dose 100 mL Medication OMNIPAQUE 300 50ML 10/PK Y-530 [facility] 1611-0712-50 Radiology Flouroscopy Fluoroscopy Used? Yes Fluoro Dose [...] MD Back from: Last Modified By: Elaine Orchestrator Elaine, Orchestrator Hultman, Orchestrator Lida K 07/09/23 Lida K 07/09/23 Lida [...] MD Back from: Last Modified By: Elaine Orchestrator Hultman, Orchestrator Hultman, Orchestrator Lida K 07/09/23 Lida K 07/09/23 Lida [...] Hultman, Rad Tech Amanda K 07/09/23 Lida K 07/09/23 Lida K [...] Henry Rad Tech Amanda K 07/09/23 Lida K 07/09/23 13:21:18 13:31:12 [...] JAMAL Cuellar Fierstos, Megan R Rad TechAngela Rad Tech Grace Instrument Sterility Procedure IR Nephrostomy Tube [...] Radiology - Action Plan Outcomes Met? Yes Senior Network Engineer Cristina Simons RN Completing Procedure Plan Last Modified By: Crisitna Simons RN 07/09/23 12:00:09 Case Comments Added Jese CAtheter and 2nd stiff glidewire used from bag and tag product wrappers so patient couldbe charged appropriately. [facility] RT-R(CV) Parts Counter Representative Finalized By: Ana Titpon Document Signatures Signed By: Sam Henry 07/09/23 14:14 Ana Tipton 07/10/23 09:11 [facility] [id number] History and physical note Date of Service [...] problem. She was most recently admitted to [facility] on 04/27 to05/07/23. She was subsequently discharged on daptomycin and ciprofloxacin to continue until 05/16. She was also seen at [facility] on 07/07. At that time, she had [...] outpatient management per . She presented to [facility] again 07/08/23 with complaints of dysuria, flank pain, vomiting with suspected UTI/kidney infection per patient. A urinalysis and urine culture were obtained there, however records are not with the patient upon evaluation. She was transferred from [facility] emergency department to [place] emergency department with plan for direct admission [facility]. She is currently awaiting bed placement [...] breathing, constipation, new vaginal or vulvar lesions. 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 Amenorrheic since initiation of Chemoradiation. Denies mammogram ever. Colonoscopy in 2019. Denies history of STDs. Not sexually active. Family History Mother with breast cancer Sister with cervical cancer Grandmother with cervical cancer Aunts with cervical cancer Cousins with cervical cancer ONCOLOGY HISTORY: - 04/04/2020: CT scan abdomen and pelvis. [facility]. Thickened cervical wall with involvementof the lower [...] underwent for intracavitary brachii therapy applications with cvxv-ttix-xlja iridium 192afterloading device utilizing a tandem and [...] Start Date End Date Elapsed Days IMRT MANAGER OF HOSPITAL Pelvis 6X 180 4,500 04/26/2020 06/02/2020 37 3D PM Bst 18X 180 540 06/05/2020 06/07/2020 2 GENETIC TESTING: - Patient had genetic testing sent through [facility]. No reportable somatic or germline pathogenic [...] ciprofloxacin until 05/16 -07/07/23 Patient presented to [facility] for UTI symptoms. - Urinalysis on 07/07 was remarkable for signs of UTI at [facility]. Patient was placed on BactrimDS twice daily x10 days for outpatient management after discussion with Dr. Hilliard. - 07/07/23 CT abdomen/pelvis obtained at that time showed Left-sided nephrostomy is present extendingto the bladder. There is an irregularly shaped hypodense focus in the upper pole of the kidney without enhancement. Mucosal thickening versus underfilling of the colon. -07/08 Patient again presents to [facility] with transfer to [facility] for direct admission. -Patient notes dysuria, [...] supposed to see Dr. Andrea at [facility]. Referral was sent to this provider to be scheduled end of May/early June. Patient did not dothis. -Discussion with Dr. Martin via telehealth visit, patient was encouraged again to follow-up with [facility] urology for possible nephrectomy in order to [...] ANGELA ALVARADO DO on 07/09/2023 04:30 AM [facility] [id number] Note ORIGINAL PROCEDURE: IR NEPHROSTOMY TUBE CHANGE MODERATE CONSCIOUS SEDATION 07/09/2023 HISTORY: ORDERING SYSTEM PROVIDED HISTORY: Reason for Exam: Overdue for nephrostomy tube exchange, last changed in April Routine nephroureteral stent check unchanged TECHNIQUE: Parada portions of the exam: 1. Retrieval of foreign body. 2. Antegrade nephrostogram. 3. Angioplasty of the ureter. 4. Replacement of nephroureteral stent with up sizing to 10 Afghan CONTRAST: 80 cc SEDATION: Moderate sedation was ordered and supervised by the attending with physician uaoi-ry-zaug monitoring. Medications were provided and recorded by Radiology nurses. FLUOROSCOPY DOSE AND TYPE: Radiation Exposure Index: 26.1 minutes of fluoroscopic time was 344 AKA, DESCRIPTION OF PROCEDURE: Informed consent was obtained after a detailed explanation of the procedure including risks, benefits, and alternatives. Payne protocol was observed. Sterile gowns, masks, hats [...] made to attempt exchange of an 8 Afghan nephroureteral stent. Under fluoroscopic guidance, a all [...] significant amount of backwards pressure, the 8 Afghan nephroureteral stent is unable to be pulled. [...] the bladder. At this point, a 7 Afghan 45 cm sheath is now advanced into the bladder from the nephrostomy tube access through the ureter at which point, a 15 mm 6 Afghan snare is advanced and used to snare the broken piece of 014 wire with retrieval of foreign body performed. Next, a new nephroureteral stent is advanced. Given that the 8 Afghan had occluded previously, decision was made to place a 10 Afghan nephroureteral stent. Over the stiff glide, a [...] Date: 07/10/2023 1:33:51 PM Ordering Provider: SASHA NJILYAC[facility] [id number] Note ORIGINAL PROCEDURE: VR PORTOGRAPHY MODERATE CONSCIOUS SEDATION 07/09/2023 HISTORY: ORDERING SYSTEM PROVIDED HISTORY: Reason for Exam: port not aspirating TECHNIQUE: The previously accessed MediPort (Lujan needle) was injected with contrast and fluoroscopic images are obtained. CONTRAST: 20 cc of Visipaque SEDATION: Moderate sedation was ordered and supervised by the attending with physician qvum-sj-fuso monitoring. Medications were provided and recorded by Radiology nurses. FLUOROSCOPY DOSE AND TYPE: Radiation Exposure Index: 12 AK, total fluoro time was 22 seconds DESCRIPTION OF PROCEDURE: Informed consent was obtained after a detailed explanation of the procedure including risks, benefits, and alternatives. Payne protocol was observed. Sterile gowns, masks, hats [...] Sign Date: 07/10/2023 10:42:17 AM Ordering Provider: [facility]09-06-2023 Evaluation + Plan note Extracted from: Title:Metal Window Frame Maker/Onc History and Physical Author:ANGELA ALVARADO DO Date:07/09/23 [...] ciprofloxacin until 05/16 -07/07/23 Patient presented to [facility] for UTI symptoms. - Urinalysis on 07/07 was remarkable for signs of UTI at [facility]. Patient was placed on Bactrim DS twice daily x10 days for outpatient management after discussion with Dr. Hilliard. - 07/07/23 CT abdomen/pelvis obtained at that time showed Left-sided nephrostomy is present extending to the bladder. There is an irregularly shaped hypodense focus in the upper pole of the kidney without enhancement. Mucosal thickening versus underfilling of the colon. -07/08 Patient again presents to [facility] with transfer to [facility] for direct admission. -Patient notes dysuria, [...] supposed to see Dr. Andrea at [facility]. Referral was sent to this provider to be scheduled end of May/early June. Patient did not do this. -Discussion with Dr. Martin via telehealth visit, patient was encouraged again to follow-up with [facility] urology for possible nephrectomy in order to [...] 05:59:54 EDT Patient seen and evaluated with kb resident. Agree with above. Concern for complicated [...] Date:07/30/2023 11:30:00 AM Scheduled Provider:FLIP MARTIN MD Location:MANAGER OF HOSPITAL ONC Appointment Type:SO OV Follow Up Future Scheduled Tests Laboratory* Pathology Metal Window Frame Maker Request 05/15/23 * Urinalysis 02/14/23 Radiology* IR [...] BD Bone Density DEXA Axial Skeleton 05/15/23 [facility] 09-06-2023 Procedure note INTERVENTIONAL RADIOLOGY POST PROCEDURE NOTE Pre-Procedure Diagnosis: Routine nephroureteral stent check and change Post Procedure Diagnosis: Same. Tanker Driver: Dr. Johanna Jean Baptiste MD Procedure: 1. Retrieval of foreign body. 2. Antegrade nephrostogram. 3. Angioplasty of the left ureter. 4. Nephrostomy tube check and change with upsizing Anesthesia: Conscious sedation Findings: The 8 Afghan nephroureteral stent had occluded distally with a Glidewire unable to penetrate into the bladder. Mukund wire placed with balloon angioplasty of the distal ureter performed to a4 mm balloon. Successful 8 Afghan nephroureteral stent check and change into 10 Afghan nephroureteral stent placement. 014 wire had broken [...] JEAN BAPTISTE MD on 07/09/2023 01:56 PM [facility] [id number] History and physical note Date of Service [...] problem. She was most recently admitted to [facility] on 04/27 to05/07/23. She was subsequently discharged on daptomycin and ciprofloxacin to continue until 05/16. She was also seen at [facility] on 07/07. At that time, she had [...] outpatient management per . She presented to [facility] again 07/08/23 with complaints of dysuria, flank pain, vomiting with suspected UTI/kidney infection per patient. A urinalysis and urine culture were obtained there, however records are not with the patient upon evaluation. She was transferred from [facility] emergency department to [place] emergency department with plan for direct admission [facility]. She is currently awaiting bed placement [...] breathing, constipation, new vaginal or vulvar lesions. 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 Amenorrheic since initiation of Chemoradiation. Denies mammogram ever. Colonoscopy in 2019. Denies history of STDs. Not sexually active. Family History Mother with breast cancer Sister with cervical cancer Grandmother with cervical cancer Aunts with cervical cancer Cousins with cervical cancer ONCOLOGY HISTORY: - 04/04/2020: CT scan abdomen and pelvis. [facility]. Thickened cervical wall with involvementof the lower [...] underwent for intracavitary brachii therapy applications with duts-rozz-drpo iridium 192afterloading device utilizing a tandem and [...] Start Date End Date Elapsed Days IMRT MANAGER OF HOSPITAL Pelvis 6X 180 4,500 04/26/2020 06/02/2020 37 3D PM Bst 18X 180 540 06/05/2020 06/07/2020 2 GENETIC TESTING: - [facility] No reportable somatic or germline [...] ciprofloxacin until 05/16 -07/07/23 Patient presented to [facility] for UTI symptoms. - Urinalysis on 07/07 was remarkable for signs of UTI at [facility]. Patient was placed on BactrimDS twice daily x10 days for outpatient management after discussion with Dr. Hilliard. - 07/07/23 CT abdomen/pelvis obtained at that time showed Left-sided nephrostomy is present extendingto the bladder. There is an irregularly shaped hypodense focus in the upper pole of the kidney without enhancement. Mucosal thickening versus underfilling of the colon. -07/08 Patient again presents to [facility] with transfer to [facility] for direct admission. -Patient notes dysuria, [...] supposed to see Dr. Andrea at [facility]. Referral was sent to this provider to be scheduled end of May/early June. Patient did not dothis. -Discussion with Dr. Martin via telehealth visit, patient was encouraged again to follow-up with [facility] urology for possible nephrectomy in order to [...] ANGELA ALVARADO DO on 07/09/2023 04:30 AM [facility] [id number] History and physical note Date of Service [...] problem. She was most recently admitted to [facility] on 04/27 to05/07/23. She was subsequently discharged on daptomycin and ciprofloxacin to continue until 05/16. She was also seen at [facility] on 07/07. At that time, she had [...] outpatient management per . She presented to [facility] again 07/08/23 with complaints of dysuria, flank pain, vomiting with suspected UTI/kidney infection per patient. A urinalysis and urine culture were obtained there, however records are not with the patient upon evaluation. She was transferred from [facility] emergency department to [place] emergency department with plan for direct admission to [facility]. She is currently awaiting bed placement [...] breathing, constipation, new vaginal or vulvar lesions. 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 Amenorrheic since initiation of Chemoradiation. Denies mammogram ever. Colonoscopy in 2019. Denies history of STDs. Not sexually active. Family History Mother with breast cancer Sister with cervical cancer Grandmother with cervical cancer Aunts with cervical cancer Cousins with cervical cancer ONCOLOGY HISTORY: - 04/04/2020: CT scan abdomen and pelvis. [facility]. Thickened cervical wall with involvementof the lower [...] underwent for intracavitary brachii therapy applications with dvsj-upbl-zqui iridium 192afterloading device utilizing a tandem and [...] Start Date End Date Elapsed Days IMRT MANAGER OF HOSPITAL Pelvis 6X 180 4,500 04/26/2020 06/02/2020 37 3D PM Bst 18X 180 540 06/05/2020 06/07/2020 2 GENETIC TESTING: - Patient had genetic testing sent through [facility]. No reportable somatic or germline pathogenic [...] ciprofloxacin until 05/16 -07/07/23 Patient presented to [facility] for UTI symptoms. - Urinalysis on 07/07 was remarkable for signs of UTI at [facility]. Patient was placed on BactrimDS twice daily x10 days for outpatient management after discussion with Dr. Hilliard. - 07/07/23 CT abdomen/pelvis obtained at that time showed Left-sided nephrostomy is present extendingto the bladder. There is an irregularly shaped hypodense focus in the upper pole of the kidney without enhancement. Mucosal thickening versus underfilling of the colon. -07/08 Patient again presents to [facility] with transfer to [facility] for direct admission. -Patient notes dysuria, [...] supposed to see Dr. Andrea at [facility]. Referral was sent to this provider to be scheduled end of May/early June. Patient did not dothis. -Discussion with Dr. Martin via telehealth visit, patient was encouraged again to follow-up with [facility] urology for possible nephrectomy in order to [...] ANGELA ALVARADO DO on 07/09/2023 04:30 AM [facility] [id number] History and physical note Date of Service [...] problem. She was most recently admitted to [facility] on 04/27 to05/07/23. She was subsequently discharged on daptomycin and ciprofloxacin to continue until 05/16. She was also seen at [facility] on 07/07. At that time, she had [...] outpatient management per . She presented to [facility] again 07/08/23 with complaints of dysuria, flank pain, vomiting with suspected UTI/kidney infection per patient. A urinalysis and urine culture were obtained there, however records are not with the patient upon evaluation. She was transferred from [facility] emergency department to [place] emergency department with plan for direct admission to [facility]. She is currently awaiting bed placement [...] breathing, constipation, new vaginal or vulvar lesions. 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 Amenorrheic since initiation of Chemoradiation. Denies mammogram ever. Colonoscopy in 2019. Denies history of STDs. Not sexually active. Family History Mother with breast cancer Sister with cervical cancer Grandmother with cervical cancer Aunts with cervical cancer Cousins with cervical cancer ONCOLOGY HISTORY: - 04/04/2020: CT scan abdomen and pelvis. [facility]. Thickened cervical wall with involvementof the lower [...] underwent for intracavitary brachii therapy applications with dioe-vhyn-cgty iridium 192afterloading device utilizing a tandem and [...] Start Date End Date Elapsed Days IMRT MANAGER OF HOSPITAL Pelvis 6X 180 4,500 04/26/2020 06/02/2020 37 3D PM Bst 18X 180 540 06/05/2020 06/07/2020 2 GENETIC TESTING: - Patient had genetic testing sent through [facility]. No reportable somatic or germline pathogenic [...] ciprofloxacin until 05/16 -07/07/23 Patient presented to [facility] for UTI symptoms. - Urinalysis on 07/07 was remarkable for signs of UTI at [facility]. Patient was placed on BactrimDS twice daily x10 days for outpatient management after discussion with Dr. Hilliard. - 07/07/23 CT abdomen/pelvis obtained at that time showed Left-sided nephrostomy is present extendingto the bladder. There is an irregularly shaped hypodense focus in the upper pole of the kidney without enhancement. Mucosal thickening versus underfilling of the colon. -07/08 Patient again presents to [facility] with transfer to [facility] for direct admission. -Patient notes dysuria, [...] supposed to see Dr. Andrea at [facility]. Referral was sent to this provider to be scheduled end of May/early June. Patient did not dothis. -Discussion with Dr. Martin via telehealth visit, patient was encouraged again to follow-up with [facility] urology for possible nephrectomy in order to [...] ANGELA ALVARADO DO on 07/09/2023 04:30 AM [facility]qvaxmkc79-30-9230 History and physical note Date of Service [...] problem. She was most recently admitted to [facility] on 04/27 to05/07/23. She was subsequently discharged on daptomycin and ciprofloxacin to continue until 05/16. She was also seen at [facility] on 07/07. At that time, she had [...] outpatient management per . She presented to [facility] again 07/08/23 with complaints of dysuria, flank pain, vomiting with suspected UTI/kidney infection per patient. A urinalysis and urine culture were obtained there, however records are not with the patient upon evaluation. She was transferred from [facility] emergency department to [place] emergency department with plan for direct admission to [facility]. She is currently awaiting bed placement [...] breathing, constipation, new vaginal or vulvar lesions. 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 Amenorrheic since initiation of Chemoradiation. Denies mammogram ever. Colonoscopy in 2019. Denies history of STDs. Not sexually active. Family History Mother with breast cancer Sister with cervical cancer Grandmother with cervical cancer Aunts with cervical cancer Cousins with cervical cancer ONCOLOGY HISTORY: - 04/04/2020: CT scan abdomen and pelvis. [facility]. Thickened cervical wall with involvementof the lower [...] underwent for intracavitary brachii therapy applications with sjqv-yjll-pejc iridium 192afterloading device utilizing a tandem and [...] Start Date End Date Elapsed Days IMRT MANAGER OF HOSPITAL Pelvis 6X 180 4,500 04/26/2020 06/02/2020 37 3D PM Bst 18X 180 540 06/05/2020 06/07/2020 2 GENETIC TESTING: - [facility] No reportable somatic or germline [...] ciprofloxacin until 05/16 -07/07/23 Patient presented to [facility] for UTI symptoms. - Urinalysis on 07/07 was remarkable for signs of UTI at [facility]. Patient was placed on BactrimDS twice daily x10 days for outpatient management after discussion with Dr. Hilliard. - 07/07/23 CT abdomen/pelvis obtained at that time showed Left-sided nephrostomy is present extendingto the bladder. There is an irregularly shaped hypodense focus in the upper pole of the kidney without enhancement. Mucosal thickening versus underfilling of the colon. -07/08 Patient again presents to [facility] with transfer to [facility] for direct admission. -Patient notes dysuria, [...] supposed to see Dr. Andrea at [facility]. Referral was sent to this provider to be scheduled end of May/early June. Patient did not dothis. -Discussion with Dr. Martin via telehealth visit, patient was encouraged again to follow-up with [facility] urology for possible nephrectomy in order to [...] ANGELA ALVARADO DO on 07/09/2023 04:30 AM [facility] HospitalFxferwpf39-29-2418 Hospital Discharge instructions Patient Education 05/07/2023 16:32:38 [...] Treatment for this condition includes: Antibiotic medicine. Rfud-sev-jilsybh medicines to treat discomfort. Drinking enough water [...] Follow these instructions at home: Medicines Take qiml-uyq-fcoqcbn and prescription medicines only as told by [...] 07/30/2006 Document Revised: 10/07/2019 Document Reviewed: 04/29/2019 [employer] Patient Education 2020 Offerti. Follow Up Care 04/27/2023 16:04:23 With:[facility] [phone] Address:Unknown When:05/13/2023 14:00:00 Comments:This is the initial appointment for your chest port needle/dressing change if you are unable to schedule yourself for Friday with [facility] when you call on Friday. Please call to cancel this appointment if you are able to get an appointment with [facility]. With:[facility] (labwork and port needle/dressing changes) [phone] Address: When: Unknown Comments:The medical/surgery registered nurse who would schedule you for this dressing change is out of the office this week. Nursing mill labor supervisor was unable to schedule you as well. You will need to call them to schedule your appointments after discharge for future weekly dressing changes every Friday. Labwork does not have to be scheduled ahead of time (allow walk-ins). With:FLIP MARTIN MD Address: [address] [place] [address] [place] [address]- [phone] When:05/15/2023 15:20:00 [facility] 07-05-2023 Note Discharge Instructions Thank you for allowing [facility] to assist you with your healthcare needs. [...] 05/15/2023 03:20 PM EDT FLIP MARTIN MD [facility] [address] [place] [phone] IR Neph Cath-Neph Ureter W/Guide Left 06/24/2023 11:00 AM EDT IR Follow Up Appointments Follow Up with FLIP MARTIN MD When 05/15/2023 03:20 PM EDT Where: [address] [place] [address] [place] [address] [phone] Follow Up with [facility] [phone] When 05/13/2023 02:00 PM EDT Why: This is the initial appointment for your chest port needle/dressing change if you are unable to schedule yourself for Friday with [facility] when you call on Friday. Please call to cancel this appointment if you are able to get an appointment with [facility]. Follow Up with [facility] (labwork and port needle/dressing changes) [phone] When Why: The medical/surgery registered nurse who would schedule you for this dressing change is out of the office this week. Nursing mill labor supervisor was unable to schedule you as [...] can cap the tube - notify IR [id number], 04/29/23 10:34:14 EDT The Following Treatments Have Been Ordered for You Discharge Labs Discharge Outpatient Labwork - Ordered -- Chest Port Care/ Labs, Chemo/ATB infusion, Your appointment is: 05/13/23 14:00:00 EDT, Stop Datefor chest port care/labs is 05/16/2023., 05/07/23 14:48:00 EDT Discharge Outpatient Labwork - Ordered -- CBC, differential, hepatic panel, renal panel and CPK every Friday and send results to fax number [phone] Ruvalcaba CBC, differential, hepatic panel, [...] 12 hours Duration: 10 Days Pickup at [facility] New DAPTOmycin (DAPTOmycin 500 mg intravenous injection) 383.4 Milligram Intravenous Every 24 hours Duration: 10 Days Pickup at [facility] Changed LORazepam (LORazepam 1 mg oral [...] hours as needed for Pain Pharmacy Information [facility]: [address] [place] [address] [phone] Please take this list to your next [...] Treatment for this condition includes: Antibiotic medicine. Uzmc-myq-qzbirac medicines to treat discomfort. Drinking enough water [...] Follow these instructions at home: Medicines Take tcfq-ziq-soqokti and prescription medicines only as told by [...] 07/30/2006 Document Revised: 10/07/2019 Document Reviewed: 04/29/2019 [employer] Patient Education 2020 Offerti. Additional Information VACCINATE! IT SAVES LIVES! Members of the community who have not yet received the COVID-19 vaccine and would like to receive it can visit one of [facility] vaccine clinics. There are many vaccine clinic locations within the [facility]. For locations and available times, please visit https://gettheshot.coronavirus.[place].gov/. It is important to note that some COVID mobile vaccine clinics are held outdoors and may be canceled in rainy or stormy conditions. To learn more about pediatric vaccinations (ages 5-11), we invite you to visit the [facility] webpage. https://www.[facility].org/pages/1383-Xerop-Rptrfiticue-Pnjuokbuxd-Osbjz-Ukq stions.htmlTo learn more about the COVID-19 vaccine, we invite you to visit the CDC website for a list of frequently asked questions.https://www.cdc.gov/coronavirus/2019-ncov/vaccines/faq.html [facility] Patient Portal Access Instructions: Stay connected with your healthcare team and access your personal medical information anytime with the [facility] Patient Portal. Please follow the directions below to create your [facility] account: 1.Access the email account you provided upon registration to the hospital/physician office.2.Look for an invitation email from [facility].3.Open the email and access the invitation link: AcceptInvitation to [facility].4.Fill in the required quintero to create your account. To access your account, visit [email or web address]. Click the blue button labeled Access Patient [...] who you will allowto register on the [facility] Patient Portal for access to your information. You can also access the [facility] Patient Portal on the [facility] [employer] joya. Simply click on Patient Portal and then log into your account. If you would like to receive a full copy of your medical records, please contact the [facility] Medical Records Department by calling [phone], Friday through Friday between 8 a.m. and [...] Call your local pharmacy or go to http://bit.Milabra/9T2Rr0f to find one close to you.3.Make use of household items: Use cat litter or old coffee grounds to dispose medications if other options arenot available. Mix your drugs with these household products, seal them in an airtight container andthrow it into the garbage. Call [facility]: [phone] to be sure your drugs can be [...] aware that I should contact my doctor. 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 Zimmeray. Plan for discharge today. IV Abx can be given through patient's port. For DEXA scan outpatient considering new finding of possible sacral fracture. Digitally Signed by NOLAN MOODY MD on 05/07/2023 06:31 AM [facility] HospitalWcahpvus97-73-0909 Note Date of Service 05/07/2023 Chief Complaint [...] NOLAN MOODY MD on 05/07/2023 06:31 AM [facility] HospitalKrxlvosn59-10-0912 Note Date of Service 05/06/2023 Chief Complaint [...] AM Digitally Signed by CLOTILDE GARCIA MD [facility] HospitalYyqqbbrd50-84-1779 Note Date of Service 05/05/23 Chief Complaint [...] TIMO MENCHACA DO on 05/05/2023 06:48 AM [facility] HospitalTblzofwu14-78-7316 Infectious disease Progress note Date of Service [...] Friday and send results to fax number [phone] Ruvalcaba Please call Dr. Ruvalcaba's office for a follow-up appointment in 2 weeks, Phone number [phone]. Digitally Signed by Emili Clark RN on 05/05/2023 10:48 AM Digitally Signed by NATHAN BASILIO MD on 05/05/2023 02:48 PM [facility] HospitalChorqbud56-91-4413 Note Date of Service 05/05/23 Chief Complaint [...] TIMO MENCHACA DO on 05/05/2023 06:48 AM [facility] HospitalPpnzausr97-23-8957 Infectious disease Consult note Date of Service 05/03/2023 Reason for Consultation Complicated UTI-polymicrobial Referring Physician Dr. Martin History of Present Illness This is a 32 yo female with history of Stage III cervical cancer s/p chemoradiation currently in remission, presents to [facility] emergency room for concern for UTI and [...] for antimicrobial management. Discussed the case with SEWER REPAIRER team yesterday, patient continues to note improvement so far on current antibiotic therapy with 3 attention and abdominal discomfort Review of Systems Urinary retention abdominal pain and bilateral flank pain and generalized fatigue, otherwise defmsc17 point review of system was recent fevers [...] s/p chemoradiation currently in remission, presents to [facility] emergency room for concern for UTI and [...] she agreed to the plan Discussed with SEWER REPAIRER team yesterday Thank you for this consultation, [...] RUVALCABA BA, MD on 05/03/2023 10:12 AM [facility] [id number] Palliative care Progress note Date of Service [...] worsening abdominal and back pains. Patient returns [facility] on 04/27/2023 with similar symptoms of abdominal pain and flank pain. Patient is status post nephro tube exchange, continues on antibiotic for UTI.Patient continues with uncontrolled cancer related pain, palliative care consulted for pain management. Goals of care: Continues to receive goal congruent care. Patient states plan is for outpatient evaluation at [facility]. Palliative care consulted for symptom management, patient [...] by NUBIA POWERS on 05/01/2023 10:55 AM [facility] HospitalFtbucmqk93-92-1847 Note IR Procedure Record Summary Primary Physician: MADELINE APARICIO MD Finalized Date/Time: 05/01/23 09:20:17 Pt. Name: LALY NAVAS Austen /Sex: 1990 Female Med Rec #: [id number] Physician: FLIP MARTIN MD Financial #: [id number] Pt. Type: I Room/Bed: [facility]/A Admit/Disch: 04/27/23 16:03:09 - Institution: Allergies [...] Entry 4 Entry 5 Case Attendee Sam Henry RN Corey Amanda K Role Performed Elastic Attacher Zigzag 1 Procedure Nurse Details Time In 04/29/23 [...] mL Medication OMNIPAQUE 300 50ML 10/PK Y-530 [facility] [id number] Radiology Flouroscopy Fluoroscopy Used? Yes Fluoro Dose (mGy) 54.12 Fluoro Time 3.1mins Radiology Local Local Used? Yes Local Type: lidocaine 2% Local Dose 10cc Radiology Procedure Site Site/Location Lt side back Site Condition No complications Suture 0 Prolene Dressing Type Gauze sponge 4 X 4, Tagaderm Technologist Notes 8.5LTp30ir [place] Nephroureterostomy Stent inserted on the LT side [...] No No No Physician? Administered by: JAMAL Feliciano, JAMAL Feliciano, JAMAL Whitehead Verbal Order Read MADELINE APARICIO [...] Radiology - Action Plan Outcomes Met? Yes Senior Network Engineer JAMAL Feliciano Completing Procedure Plan Last Modified By: JAMAL Feliciano 04/29/23 10:19:46 Case Comments Finalized By: Karolina Prater Document Signatures Signed By: JAMAL Harding 04/29/23 13:59 JAMAL Harding 04/29/23 15:12 Karolina Prater 04/29/23 15:28 Justice, Waldemar Mendosa 04/29/23 10:38 Justice, Waldemar G 04/29/23 10:39 Justice, Waldemar G 04/29/23 10:39 Sam Granger L 04/29/23 10:42 Justice, Waldemar G 04/29/23 10:38 Karolina Prater 04/29/23 13:16 Karolina Prater 04/29/23 13:17 Karolina Prater 04/29/23 13:17 JAMAL Harding 04/29/23 13:53 JAMAL Harding 04/29/23 13:56 JAMAL Harding 04/29/23 13:59 Karolina Prater 05/01/23 09:20 [facility] [id number] Note ORIGINAL HISTORY: ORDERING SYSTEM PROVIDED HISTORY: Reason for Exam: Patient with UTI and nephrostomy tube not replaced since 02/17 COMPARISON: CT 04/27/23; last change 02/17/23 PROCEDURE: 1. Nephroureteral drain tube exchange under fluoroscopy LATERALITY: Left MAINTAINER CENTRAL OFFICE: Dr. Aparicio MANUFACTURING SUPPORT ENGINEER: None The procedure, risks, and alternatives, were discussed and all questions were answered. Informed consent obtained. Maximal sterile barrier technique, hand hygiene, skin prep, and sterile ultrasound techniques (if used) utilized. Percutaneous site was sterilely prepped and draped. Time out performed. Demand Generator Manager image demonstrates stable appearance of the nephroureteral [...] nursing personnel under direct supervision by the cylinder press operator. SEDATION TIME (min): 50 FLUORO (min): [...] Date: 04/30/2023 3:21:11 PM Ordering Provider: SYBIL LYNCH [facility] HospitalRtbkutxu47-35-4129 Note Nephrostomy site with gauze & transparent dressing, no complications. Bag with yellow urine noted. Digitally Signed by JAMAL Phipps on 04/30/2023 02:47 PM [facility] HospitalPikszfwf08-43-7005 Palliative care Consult note Date of Service [...] worsening abdominal and back pains. Patient returns [facility] on 04/27/2023 with similar symptoms of [...] worsening abdominal and back pains. Patient returns [facility] on 04/27/2023 with similar symptoms of [...] by NUBIA POWERS on 04/30/2023 11:33 AM [facility] HospitalOqllkzay17-49-8897 Note Patient not in room. Plan for Nephrostomy exchange today. Will reassess later. Digitally Signed by JAMAL Phipps on 04/29/2023 11:07 AM [facility] HospitalDucvwytw20-21-2287 Note ORIGINAL HISTORY: ORDERING SYSTEM PROVIDED HISTORY: Reason for Exam: Patient with UTI and nephrostomy tube not replaced since 02/17 COMPARISON: CT 04/27/23; last change 02/17/23 PROCEDURE: 1. Nephroureteral drain tube exchange under fluoroscopy LATERALITY: Left MAINTAINER CENTRAL OFFICE: Dr. Aparicio MANUFACTURING SUPPORT ENGINEER: None The procedure, risks, and alternatives, were discussed and all questions were answered. Informed consent obtained. Maximal sterile barrier technique, hand hygiene, skin prep, and sterile ultrasound techniques (if used) utilized. Percutaneous site was sterilely prepped and draped. Time out performed. Demand Generator Manager image demonstrates stable appearance of the nephroureteral [...] nursing personnel under direct supervision by the cylinder press operator. SEDATION TIME (min): 50 FLUORO (min): [...] Sign Date: 04/30/2023 3:21:11 PM Ordering Provider: [facility]06-27-2023 Procedure note Brief IR Post Procedure Note - Inpatient/Obs Pre Procedure Dx: Cancer, left hydro Post Procedure Dx: Same Procedure: 1. Left PCNU product managent intern: Markus Glass Enamel Mixer: None Anesthesia: Local, moderate sedation EBL: Minimal [...] MD Vascular & Interventional Rad[facility] ([facility]) Vamsi [email or web address] Pager: [phone] [facility] IR Dept (26/05): [id number] RAC-VIR [id number] [facility]-VIR Digitally Signed by MADELINE APARICIO MD on 04/29/2023 10:33 AM [facility] HospitalBkaivrrm73-76-2404 History and physical note Date of Service 04/27/23 Chief Complaint Unable to uinate X 9 days. 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 History of Present Illness 32 yo Woman with history of Stage IIIB cervical cancer s/p chemoradiation currently in remission, presents to [facility] emergency room for concern for UTI and [...] subsequently admitted for treatment of complicated UTI. 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 Amenorrheic since initiation of Chemoradiation. Denies mammogram ever. Colonoscopy in 2019. Denies history of STDs. Not sexually active. Family History Mother with breast cancer Sister with cervical cancer Grandmother with cervical cancer Aunts with cervical cancer Cousins with cervical cancer ONCOLOGY HISTORY: - 04/04/2020: CT scan abdomen and pelvis. [facility]. Thickened cervical wall with involvementof the lower [...] underwent for intracavitary brachii therapy applications with tkcw-jvlj-obkq iridium 192afterloading device utilizing a tandem and [...] Start Date End Date Elapsed Days IMRT MANA[facility] OF [facility]OSPITAL Pelvis 6X 180 4,500 04/26/2020 06/02/2020 37 3D PM Bst 18X 180 540 06/05/2020 06/07/2020 2 GENETIC TESTING: - Patient had genetic testing sent through [facility]. No reportable somatic or germline pathogenic [...] SASHA MON MD on 04/28/2023 03:41 AM [facility] HospitalNmvzqjeq39-02-2802 Evaluation + Plan noteExtracted from: Title:History and [...] in the past seeing a urologist in [place] to consider nephrectomy. She has had a consultation at previously, but she states that she would rather see somebody at [facility] because she did not necessarily feel [...] Please also put in a consult to MANA[facility] OF [facility]ITAL oncology nurse navigator. I explained the plan to the patient. I answered all of her questions. FLIP MARTIN MD FACOG Future Appointments Appointment Date:05/13/2023 02:00:00 PM Scheduled Provider: Location:INF Appointment Type:INF Labwork Appointment Date:05/15/2023 03:20:00 PM Scheduled Provider:FLIP MARTIN MD Location:[facility] ONC Appointment Type:SO OV Follow Up Appointment [...] IR Neph Cath-Neph Ureter W/Guide Left 06/24/23 [facility] 06-26-2023 Progress note Date of Service [...] FLIP MARTIN MD on 04/28/2023 07:51 AM [facility] HospitalDgjugyvc28-44-0005 History and physical note Date of Service 04/27/23 Chief Complaint Unable to uinate X 9 days. 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 History of Present Illness 32 yo Woman with history of Stage IIIB cervical cancer s/p chemoradiation currently in remission, presents to [facility] emergency room for concern for UTI and [...] subsequently admitted for treatment of complicated UTI. 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 Amenorrheic since initiation of Chemoradiation. Denies mammogram ever. Colonoscopy in 2020. Denies history of STDs. Not sexually active. Family History Mother with breast cancer Sister with cervical cancer Grandmother with cervical cancer Aunts with cervical cancer Cousins with cervical cancer ONCOLOGY HISTORY: - 04/04/2020: CT scan abdomen and pelvis. [facility]. Thickened cervical wall with involvementof the lower [...] underwent for intracavitary brachii therapy applications with wbrk-hvvh-arhr iridium 192afterloading device utilizing a tandem and [...] Start Date End Date Elapsed Days IMRT MANAGER OF HOSPITAL Pelvis 6X 180 4,500 04/26/2020 06/02/2020 37 3D PM Bst 18X 180 540 06/05/2020 06/07/2020 2 GENETIC TESTING: - Patient had genetic testing sent through [facility]. No reportable somatic or germline pathogenic [...] SASHA MON MD on 04/28/2023 03:41 AM [facility]7523 Note ORIGINAL EXAMINATION: CT OF THE ABDOMEN [...] Sign Date: 04/27/2023 11:04:03 PM Ordering Provider: [facility]06-25-2023 Note ORIGINAL EXAMINATION: CT OF [...] Date: 04/27/2023 11:04:03 PM Ordering Provider: [facility]06-25-2023 History and physical note Date of Service 04/27/23 Chief Complaint Unable to uinate X 9 days. 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 History of Present Illness 32 yo Woman with history of Stage IIIB cervical cancer s/p chemoradiation currently in remission, presents to [facility] emergency room for concern for UTI and [...] subsequently admitted for treatment of complicated UTI. 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 Amenorrheic since initiation of Chemoradiation. Denies mammogram ever. Colonoscopy in 2019. Denies history of STDs. Not sexually active. Family History Mother with breast cancer Sister with cervical cancer Grandmother with cervical cancer Aunts with cervical cancer Cousins with cervical cancer ONCOLOGY HISTORY: - 04/04/2020: CT scan abdomen and pelvis. [facility]. Thickened cervical wall with involvementof the lower [...] underwent for intracavitary brachii therapy applications with iiej-ybnt-lwtw iridium 192 afterloading device utilizing a tandem [...] Start Date End Date Elapsed Days IMRT MANAGER OF HOSPITAL Pelvis 6X 180 4,500 04/26/2020 06/02/2020 37 3D PM Bst 18X 180 540 06/05/2020 06/07/2020 2 GENETIC TESTING: - [facility] No reportable somatic or germline [...] SASHA MON MD on 04/28/2023 03:41 AM [facility]ewpxwln99-[facility]-6191 Hospital Discharge instructions Patient Education 03/05/2023 17:42:39 [...] or mouth. Supplies needed: Soap. Alcohol-based hand rural route carrier. Standard cleaning products. Disinfectants, such as bleach. [...] water are not available, use alcohol-based hand rural route carrier. Avoid touching your face, mouth, nose, or [...] water. Air-dry your dishes or use a medical radiation therapist. Do not share dishes or eating utensils. [...] certain germs and not others. Read the health education aide's instructions or read online resources to determine [...] minutes after each use, or according to health education aide's instructions. Wash reusable cleaning cloths and sanitize [...] water are not available, use alcohol-based hand rural route carrier. In general: Stay home except to get [...] for Professionals in Infection Control and Epidemiology: professionals.site.apic.org/cqrcqkae-av-rxuh/fmo-xyhyzmrtch-neiqplb/home/ Summary It is important to know how [...] 07/29/2009 Document Revised: 02/15/2020 Document Reviewed: 01/14/2020 Machinima Patient Education 2019 [employer]. Follow Up Care 02/23/2023 11:57:17 With:MARGOTH RUVALCABA BA, MD, Infectious Disease, Infectious Disease Group Address: [facility] [address] [place] [address]- When: Unknown Comments:Call for a follow up appointment within 1 week With:OLE SUTTON MD, [facility] Address: [address] [facility] [address] [facility] [place] [address]- [phone] When: Unknown Comments:Call for a follow up appointment within 1 week With:[facility] Address: [address] [place] [address]- [phone] When:03/10/2023 09:00:00 Comments:Go to the ambulatory unit for your once weekly labwork and port dressing change on 03/10 at 9AM With:FLIP MARTIN MD Address: [address] [place] [address] [place] [address]- [phone] When:03/05/2023 15:30:00 Comments:Follow-up at scheduled appointment on March 05 at 3:30pm or call the office sooner if problems arise. [facility] 05-03-2023 Nurse Progress note Patient went home on IV antibiotics so she needed to stay accessed with her port for delivery of said IV antibiotics. Digitally Signed by Dania Hall RN on 03/05/2023 06:51 PM [facility] HospitalNraazpqp53-59-0651 Note Date of Service 03/05/2023 Chief Complaint [...] FARZANA CAST DO on 03/05/2023 06:40 AM [facility] HospitalVtvdsivz42-05-1007 Note Discharge Instructions Thank you for allowing [facility] to assist you with your healthcare needs. [...] 03/19/2023 03:10 PM EDT FLIP MARTIN MD [facility] [address] [place] [phone] IR Neph Cath-Neph Ureter W/Guide Left 05/12/2023 11:00 AM EDT IR Follow Up Appointments Follow Up with [facility] When 03/10/2023 09:00 AM EDT Why: Go to the ambulatory unit for your once weekly labwork and port dressing change on 03/10 at 9AM Where: [address] [place] [address]- [phone] Follow Up with FLIP MARTIN MD When 03/05/2023 03:30 PM EDT Why: Follow-up at scheduled appointment on March 05 at 3:30pm or call the office sooner if problems arise. Where: [address] [place] [address] [place] [address] [phone] Follow Up with MARGOTH RUVALCABA BA, MD, Infectious Disease, Infectious Disease Group When Why: Call for a follow up appointment within 1 week Where: [facility] [address] [place] [address]- Follow Up with OLE SUTTON MD, [facility] When Why: Call for a follow up appointment within 1 week Where: [address] [facility] [address] [facility] [place] [address] [phone] The Following Activity and Diet Have Been [...] or mouth. Supplies needed: Soap. Alcohol-based hand rural route carrier. Standard cleaning products. Disinfectants, such as bleach. [...] water are not available, use alcohol-based hand rural route carrier. Avoid touching your face, mouth, nose, or [...] water. Air-dry your dishes or use a medical radiation therapist. Do not share dishes or eating utensils. [...] certain germs and not others. Read the health education aide's instructions or read online resources to determine [...] minutes after each use, or according to health education aide's instructions. Wash reusable cleaning cloths and sanitize [...] water are not available, use alcohol-based hand rural route carrier. In general: Stay home except to get [...] for Professionals in Infection Control and Epidemiology: professionals.site.apic.org/azycehfa-ik-ltep/xuq-vgvmndtdoa-crkdmsi/home/ Summary It is important to know how [...] 02/15/2020 Document Reviewed: 01/14/2020 Elsevier Patient Education 2019 [employer] Inc. Additional Information VACCINATE! IT SAVES LIVES! Members of the community who have not yet received the COVID-19 vaccine and would like to receive it can visit one of [facility] vaccine clinics. There are many vaccine clinic locations within the [facility]. For locations and available times, please visit https://gettheshot.coronavirus.[place].gov/. It is important to note that some COVID mobile vaccine clinics are held outdoors and may be canceled in rainy or stormy conditions. To learn more about pediatric vaccinations (ages 5-11), we invite you to visit the [facility] webpage. https://www.akronChangelights.org/pages/7505-Gewwq-Wsfdfyayzot-Tmkpacjcfa-Rgcqo-Cui stions.htmlTo learn more about the COVID-19 vaccine, we invite you to visit the CDC website for a list of frequently asked questions. https://www.cdc.gov/coronavirus/2019-ncov/vaccines/faq.html [facility] Patient Portal Access Instructions: Stay connected with your healthcare team and access your personal medical information anytime with the [facility] Patient Portal.If you would like a full copy of your medical records, please contact the [facility] Medical Records Department, Friday through Friday between 8a.m. and 4:30p.m. Please follow the directions below to access the portal: 1.Access the email account you provided upon registration to the [facility].2.Look for an invitation email from [facility].3.Open the email and access the invitation link: Accept Invitation to [facility]4.Fill in the required quintero to create your account. Sign into [email or web address] with your username and password that you [...] you will allow to register on the [facility] Patient Portal for access to your information. You can also access the [facility] Patient Portal on the Reconnex joya. Simply click on Health Records under Livemap and then click on the Chauffeur Prive logo. HOW TO SAFELY DISPOSE OF PRESCRIPTION [...] Call your local pharmacy or go to [email or web address] [email or web address] to find one close to you.3.Make use of household items: Use cat litter or old coffee grounds to dispose medications if other options arenot available. Mix your drugs with these household products, seal them in an airtight container andthrow it into the garbage. Call [facility]: [phone] to be sure your drugs can be [...] aware that I should contact my doctor. 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: Date/Time: Relationship to Patient: Witness Name/Signature: Date/Time: [facility] HospitalZxceywri79-44-6543 Note Date of Service 03/05/2023 Chief Complaint [...] FARZANA CAST DO on 03/05/2023 06:40 AM [facility] HospitalAruxlzxj57-18-2607 Note Date of Service 03/05/2023 Chief Complaint [...] FARZANA CAST DO on 03/05/2023 06:40 AM [facility] HospitalNsjcfvrp57-68-3142 Note Date of Service 03/04/2023 Chief Complaint [...] EDT Consult to Palliative Care SCD Machine ([id number]) SCD Sleeves - Knee ([id number]) Patient is a 32 yo woman with [...] FARZANA CAST DO on 03/04/2023 06:43 AM [facility] HospitalMnnpccqw92-63-2660 Palliative care Progress note Date of Service [...] of her medications be sent to the [facility] pharmacy so that it is less complicated [...] participate in her care. Digitally Signed by SANITNO SAWYER MD on 03/04/2023 09:57 AM [facility] HospitalGpxpuzki91-94-5294 Palliative care Progress note Date of Service [...] of her medications be sent to the [facility] pharmacy so that it is less complicated [...] SANTINO SAWYER MD on 03/04/2023 09:57 AM [facility] HospitalNzyribka89-58-4256 Palliative care Progress note Date of Service [...] of her medications be sent to the [facility] pharmacy so that it is less complicated [...] SANTINO SAWYER MD on 03/04/2023 09:57 AM [facility] HospitalYaxhsvds47-41-9738 Note Date of Service 03/04/2023 Chief Complaint [...] EDT Consult to Palliative Care SCD Machine ([id number]) SCD Sleeves - Knee (24180) Patient is a 32 yo woman with [...] FARZANA CAST DO on 03/04/2023 06:43 AM [facility] HospitalNdaaxdjr23-69-9104 Note Date of Service 03/04/2023 Chief Complaint [...] EDT Consult to Palliative Care SCD Machine ([id number]) SCD Sleeves - Knee (62343) Patient is a 32 yo woman with [...] FARZANA CAST DO on 03/04/2023 06:43 AM [facility] HospitalWyaezdev51-85-2467 Note Date of Service 03/03/2023 Chief Complaint CHRONIC CANCER RELATED PAIN, COMPLICATED UTI Subjective Patient seen and evaluated. No acute events overnight. Pain control improved this morning. Shay does still endorse pain in her LLQ [...] FARZANA CAST DO on 03/03/2023 06:56 AM [facility] HospitalQuajyrjz35-71-1628 Note Date of Service 03/03/2023 Chief Complaint [...] FARZANA CAST DO on 03/03/2023 06:56 AM [facility] HospitalWevveygh67-07-8965 Infectious disease Progress note Date of Service [...] and back pain. She then presented to [facility]. Patient was placed on meropenem. Patient urine [...] by CAMERON RICKS on 02/28/2023 10:42 AM [facility] HospitalDbfxwzgu57-87-2169 Urology Consult note Date of Service February [...] tube. The patient is not known to [facility]. She reports that she gets her [...] and also the local urologist here in [place]. Depending on These discussions, this may warrant referral to [facility] vs local treatment. -- Tricia iDop MD Urology [facility] Problem List/Past Medical History Ongoing Acute kidney [...] JJ stent: 11/15/20 Radiation: 06/2020 Cervical biopsy: 2020 Tumor cells, benign: 2002 Nephrostomy with tube drainage Medications Inpatient Ativan, [...] TRICIA DIOP MD on 02/28/2023 12:08 PM [facility] HospitalYtfklqgb84-70-1516 Infectious disease Progress note Date of Service [...] and back pain. She then presented to [facility]. Patient was placed on meropenem. Patient urine [...] by CAMERON RICKS on 02/28/2023 10:42 AM [facility] HospitalGiymbeqa12-09-8406 Infectious disease Progress note Date of Service [...] and back pain. She then presented to [facility]. Patient was placed on meropenem. Patient urine [...] - Continue IV Ertapenem. Will discuss with MANAGER OF HOSPITAL regarding possible IR aspiration. Left nephrostomy tube in place, last exchanged 02/17/23. Recommend urology consult. All other management per primary team Shared/split visit with my collaborating physician Dr. Margoth Martin This dictation was performed using voice recognition software and may include grammatical and/or spelling errors. Digitally Signed by CAMERON RICKS on 02/27/2023 02:49 PM Digitally Signed by CAMERON RICKS on 02/27/2023 02:57 PM [facility] HospitalPcbriivl47-83-0847 Infectious disease Progress note Date of Service [...] and back pain. She then presented to [facility]. Patient was placed on meropenem. Patient urine [...] - Continue IV Ertapenem. Will discuss with MANAGER OF HOSPITAL regarding possible IR aspiration. Left nephrostomy tube in place, last exchanged 02/17/23. Recommend urology consult. All other management per primary team Shared/split visit with my collaborating physician Dr. Margoth Martin This dictation was performed using voice recognition software and may include grammatical and/or spelling errors. Digitally Signed by CAMERON RICKS on 02/27/2023 02:49 PM Digitally Signed by CAMERON RICKS on 02/27/2023 02:57 PM [facility] HospitalFxgbluxx00-56-6313 Note ORIGINAL EXAMINATION: CT OF THE ABDOMEN [...] Sign Date: 02/27/2023 4:48:38 AM Ordering Provider: [facility]04-26-2023 Note ORIGINAL EXAMINATION: CT OF THE ABDOMEN [...] Sign Date: 02/27/2023 4:48:38 AM Ordering Provider: [facility]04-26-2023 Infectious disease Consult note Date of Service [...] and back pain. She then presented to [facility]. Patient was placed on meropenem. Patient urine [...] by CAMERON RICKS on 02/26/2023 03:51 PM [facility] HospitalKnnegpsn26-14-7244 Palliative care Progress note Code Status Code [...] by NUBIA POWERS on 02/26/2023 01:02 PM [facility] HospitalPdkfpwus50-27-6187 Infectious disease Consult note Date of Service [...] and back pain. She then presented to [facility]. Patient was placed on meropenem. Patient urine [...] by CAMERON RICKS on 02/26/2023 03:51 PM [facility] HospitalPikcisgi92-25-2690 Palliative care Progress note Date of Service [...] counselor weekly at [facility] in [place]. Patient's counselor is Lenora. Review of labs, historical records, progress notes, and diagnostics Digitally Signed by NUBIA POWERS on 02/25/2023 03:33 PM [facility] HospitalQpzqgubi48-22-6546 Note System generated consult secondary to documentation of established left nephrostomy tube. Insertionsite has a dry and intact gauze with transparent dressing. Nephrostomy drainable pouch intact, no issues. Digitally Signed by JAMAL Bach February on 02/25/2023 12:38 PM [facility] HospitalUkgaofpp42-60-6182 Palliative care Consult note Date of Service [...] by NUBIA POWERS on 02/24/2023 02:58 PM [facility] HospitalNtlqavow43-22-8179 History and physical note Date of Service 02/23/2023 Chief Complaint Pt c/o abdominal and back pain for the past two weeks, rates pain 9/10. History of Present Illness 32 yo Woman with history of Stage IIIB cervical cancer s/p chemoradiation currently in remission, presents to [facility] emergency room for concern for UTI and [...] Zofran. Blood culture and urine culture sent. 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 Amenorrheic since initiation of Chemoradiation. Denies mammogram ever. Colonoscopy in 2019. Denies history of STDs. Not sexually active. Family History Mother with breast cancer Sister with cervical cancer Grandmother with cervical cancer Aunts with cervical cancer Cousins with cervical cancer ONCOLOGY HISTORY: - 04/04/2020: CT scan abdomen and pelvis. [facility]. Thickened cervical wall with involvementof the lower [...] underwent for intracavitary brachii therapy applications with yxql-ihwm-uify iridium 192afterloading device utilizing a tandem and [...] Start Date End Date Elapsed Days IMRT MANAGER OF HOSPITAL Pelvis 6X 180 4,500 04/26/2020 06/02/2020 37 3D PM Bst 18X 180 540 06/05/2020 06/07/2020 2 GENETIC TESTING: - [facility] No reportable somatic or germline [...] JODI HILLIARD MD on 02/24/2023 07:51 AM [facility] HospitalRarqoxhk88-99-1692 Evaluation + Plan noteExtracted from: Title:MANAGER OF HOSPITAL/ONC History and Physical Author:ENZO JONES DO Date:02/23/23 [...] Date:03/19/2023 03:10:00 PM Scheduled Provider:FLIP MARTIN MD Location:MANAGER OF HOSPITAL ONC Appointment Type:SO OV Follow Up Appointment [...] IR Neph Cath-Neph Ureter W/Guide Left 06/02/23 [facility] 04-17-2023 Hospital Discharge instructions Patient Education 02/17/2023 10:41:47 Radiology- Nephrostomy/Nephroureteral Tube Exchange 12/26/2022(CUSTOM) ESPARTO Nephrostomy/Nephroureteral Tube Exchange Discharge Instructions Interventional Radiology [facility] Imaging Services [address] [place] [address] The procedure that you had done today [...] the feeling of the need to urinate. Payk-cpw-wexetgw pain medication should be used for pain [...] Supplies may be obtained at: [facility] [address] [facility] [address] [facility] Any questions or concerns, please contact your physician or Interventional Radiology at [phone] from 8-4:30pm Friday-Friday. If you do not [...] until you are awake and alert. Take ktxx-enj-srwwlrs and prescription medicines only as told by [...] 08/10/2014 Document Revised: 10/02/2018 Document Reviewed: 02/08/2017 [employer]in[employer] Patient Education 2020 [employer]. Follow Up Care 12/16/2022 14:31:35 With:LUBRITTNI Lu CATHOLIC PRIEST-ELECTRIC MOTOR TESTER Address: [address] [place] [address] [place] [address] [phone] When: Unknown With:Go to emergency room if symptoms worsen Address:Unknown When: Unknown [facility] 04-17-2023 Note* JAMAL Feliciano: SIGN, AUTHOR, PERFORM Event Display: IR Procedure Record Authored Date: [id number] IR Procedure Record Summary Primary Physician: VIRAL MANUEL MD Finalized Date/Time: 02/17/23 10:12:03 Pt. Name: LORI NAVASCHRIS Boyce /Sex: 1990 Female Med Rec #: [id number] Physician: Financial #: [id number] Pt. Type: O Room/Bed: / Admit/Disch: 02/17/23 [...] MANUEL MD, Jacque M. Hershberger, Terra L Orchestrator Role Performed Primary Surgeon Scrub Technologist Circulating Technologist Details Time In 02/17/23 09:49:00 02/17/23 09:31:00 02/17/23 09:31:00 Time Out 02/17/23 10:20:00 02/17/23 10:20:00 02/17/23 10:20:00 Procedure/Preference IR Neph Cath-Neph IR Neph Cath-Neph IR Neph Cath-Neph Card Ureter W/Guide Left SN Ureter W/Guide Left SN Ureter W/Guide Left SN Last Modified By: Braden, JAMAL Waggoner RN Corey 02/17/23 10:09:24 02/17/23 10:09:24 02/17/23 [...] mL/beat Medication OMNIPAQUE 300 50ML 10/PK Y-530 [facility] 3073-7266-29 Radiology Flouroscopy Fluoroscopy Used? Yes Fluoro Dose [...] hydromorphone Time Administered 02/17/23 09:51:00 02/17/23 09:51:00 04/17/23 09:51:00 Route of Admin IV Push IV Push IV Push Dose 50mg 1mg 1mg Volume VORB * *Verbal Order Read Back (VORB) is required for NON- PHYSICIAN administration of medications. Administered by No No No Physician? Administered by: JAMAL Feliciano RN Corey Snider, JAMAL Whitehead Verbal Order Read VIRAL MANUEL MD, JAMES [...] Corey Snider, JAMAL Whitehead Verbal Order Read VIRAL MANUEL MD, JAMES [...] than Primary Last Modified By: Patti Ching Orchestrator 02/17/23 09:58:41 Immediate Post Procedure Note - [...] images and Patti Ching results are properly Orchestrator, JAMAL Feliciano labeled and [place] appropriately displayed, [...] Radiology - Action Plan Outcomes Met? Yes Senior Network Engineer JAMAL Feliciano Completing Procedure Plan Last Modified By: JAMAL Feliciano 02/17/23 09:46:55 Case Comments <None> Finalized By: JAMAL Feliciano Document Signatures Signed By: JAMAL Feliciano 02/17/23 10:12 [facility] 04-17-2023 Summary of episode note Discharge Instructions Thank you for allowing [facility] to assist you with your healthcare needs. The following is importantdischarge information regarding your hospital visit. Your Care Team FLIP MARTIN MD What to do next Scheduled Follow-Up Appointments Appointment Type When With Where Contact InformationSO OV 02/20/2023 02:50 PM EDT FLIP MARTIN MD [facility] [address] [place] [phone] Follow Up Appointments Follow Up with BRITTNI LU When Where: [address] [place] [address] [place] [phone] Follow Up with Go to emergency room [...] medication providers or retail pharmacies. Education Materials ESPARTO Nephrostomy/Nephroureteral Tube Exchange Discharge Instructions Interventional Radiology [facility] Imaging Services [address] [place] [address] The procedure that you had done today [...] the feeling of the need to urinate. Uxii-ysd-hdgevgn pain medication should be used for pain [...] the gauze. Supplies may be obtained at: [facility] [address] [facility] [address] [facility] Any questions or concerns, please contact your physician or Interventional Radiology at [phone] from 8-4:30pm Friday-Friday. If you do not [...] until you are awake and alert. Take jgnn-aqe-dwzkqnf and prescription medicines only as told by [...] 08/10/2014 Document Revised: 10/02/2018 Document Reviewed: 02/08/2017 [employer]inima Patient Education 2020 Offerti. Additional Information VACCINATE! IT SAVES LIVES! Members of the community who have not yet received the COVID-19 vaccine and would like to receive it can visit one of [facility] vaccine clinics. There are many vaccine clinic locations within the [facility]. For locations and available times, please visit https://gettheshot.coronavirus.[place].gov/. It is important to note that some COVID mobile vaccine clinics are held outdoors and may be canceled in rainy or stormy conditions. To learn more about pediatric vaccinations (ages 5-11), we invite you to visit the [facility] webpage. https://www.[facility].org/pages/8433-Klnes-Ipegmwqpaqh-Twsaiwpcex-Aiftt-Qpy stions.htmlTo learn more about the COVID-19 vaccine, we invite you to visit the CDC website for a list of frequently asked questions. https://www.cdc.gov/coronavirus/2019-ncov/vaccines/faq.html [facility] Patient Portal Access Instructions: Stay connected with your healthcare team and access your personal medical information anytime with the [facility] Patient Portal.If you would like a full copy of your medical records, please contact the [facility] Medical Records Department, Friday through Friday between 8a.m. and 4:30p.m. Please follow the directions below to access the portal: 1.Access the email account you provided upon registration to the hospital.2.Look for an invitation email from [facility].3.Open the email and access the invitation link: Accept Invitation to [facility]4.Fill in the required quintero to create your account. Sign into [email or web address] with your username and password that you [...] you will allow to register on the [facility] Patient Portal for access to your information. You can also access the [facility] Patient Portal on the Reconnex joya. Simply click on Health Records under Livemap and then click on the Vanessa logo. [...] Call your local pharmacy or go to [email or web address] to find one close to you.3.Make use of household items: Use cat litter or old coffee grounds to dispose medications if other options arenot available. Mix your drugs with these household products, seal them in an airtight container andthrow it into the garbage. Call [facility]: [phone] to be sure your drugs can be [...] aware that I should contact my doctor. 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 Post Procedure Diagnosis: Same. Tanker Driver: Dr. Viral Manuel Procedure: Left nephroureteral catheter exchange. Anesthesia: Procedural sedation. Findings: Success. Estimated Blood Loss: Minimal (Less Than 10 mL). Specimen: None. Complications: None. Full report with procedural details to follow and will become available under the Radiology tab of Results Review. Please contact for any questions or concerns. Viral Manuel MD Interventional Radiology Pager: [phone] Digitally Signed by VIRAL MANUEL MD on 02/17/2023 10:22 AM [facility] HospitalYetdijrl20-54-1875 Note IR Procedure Record Summary Primary Physician: VIRAL MANUEL MD Finalized Date/Time: 02/17/23 10:12:03 Pt. Name: LALY NAVAS /Sex: 1990 Female Med Rec #: [id number] Physician: Financial #: [id number] Pt. Type: O Room/Bed: / Admit/Disch: 02/17/23 [...] MANUEL MD, Jacque M. Hershberger, Terra L Orchestrator Role Performed Primary Surgeon Scrub Technologist Circulating [...] mL/beat Medication OMNIPAQUE 300 50ML 10/PK Y-530 [facility] 3033-6696-97 Radiology Flouroscopy Fluoroscopy Used? Yes Fluoro Dose [...] Corey Snider, JAMAL Whitehead Verbal Order Read VIRAL MANUEL MD, JAMES [...] than Primary Last Modified By: Patti Ching Tech 02/17/23 09:58:41 Immediate Post Procedure Note - [...] images and Patti Ching results are properly Orchestrator, JAMAL Feliciano labeled and Ventura appropriately displayed, [...] Radiology - Action Plan Outcomes Met? Yes Senior Network Engineer JAMAL Feliciano Completing Procedure Plan Last Modified By: JAMAL Feliciano 02/17/23 09:46:55 Case Comments Finalized By: JAMAL Feliciano Document Signatures Signed By: JAMAL Feliciano 02/17/23 10:12 [facility] HospitalRupaprqf27-92-0540 Hospital Discharge instructions Patient Education 01/06/2023 15:48:10 Urinary Tract Infection, Adult, Blum-vr-Wepb Urinary Tract Infection, Adult A urinary tract [...] Follow these instructions at home: Medicines Take ddmh-twd-zziqcet and prescription medicines only as told by [...] 04/07/2009 Document Revised: 10/07/2019 Document Reviewed: 04/29/2019 [employer] Patient Education 2020 [employer]. Follow Up Care 01/01/2023 16:30:26 With:FLIP MARTIN MD Address: [address] [place] [address] [place] [address]- When:01/30/2023 14:10:00 [facility] 03-06-2023 Note Discharge Instructions Thank you for allowing [facility] to assist you with your healthcare needs. [...] schedule a follow up appointment Where: [address] [place] [address] [place] [address]- The Following Activity and Diet Have Been [...] 12 hours Duration: 4 Days Pickup at [facility] New mirtazapine (mirtazapine 15 mg oral tablet) 1 tab(s) by mouth Once a day Refills: 3 Pickup at [facility] Pharmacy Information [facility]24: [address] [place], [place] [id number] [phone] What How Much When Why Comments Stop [...] Follow these instructions at home: Medicines Take abpg-gbt-apyzcne and prescription medicines only as told by [...] 04/07/2009 Document Revised: 10/07/2019 Document Reviewed: 04/29/2019 [employer] Patient Education 2020 [employer] Additional Information VACCINATE! IT SAVES LIVES! Members of the community who have not yet received the COVID-19 vaccine and would like to receive it can visit one of [facility] vaccine clinics. There are many vaccine clinic locations within the [facility]. For locations and available times, please visit https://gettheshot.coronavirus.[place].gov/. It is important to note that some COVID mobile vaccine clinics are held outdoors and may be canceled in rainy or stormy conditions. To learn more about pediatric vaccinations (ages 5-11), we invite you to visit the [facility] webpage. https://www.[facility].org/pages/1053-Pcfon-Izvhhdjjtiv-Iwjogrqsiy-Zxwjp-Lbk stions.htmlTo learn more about the COVID-19 vaccine, we invite you to visit the CDC website for a list of frequently asked questions. https://www.cdc.gov/coronavirus/2019-ncov/vaccines/faq.html [facility] Patient Portal Access Instructions: Stay connected with your healthcare team and access your personal medical information anytime with the [facility] Patient Portal.If you would like a full copy of your medical records, please contact the [facility] Medical Records Department, Friday through Friday between 8a.m. and 4:30p.m. Please follow the directions below to access the portal: 1.Access the email account you [facility].2.Look for an invitation email from [facility].3.Open the email and access the invitation link: Accept Invitation to [facility]4.Fill in the required quintero to create your account. Sign into [email or web address] with your username and password that you [...] you will allow to register on the [facility] Patient Portal for access to your information. You can also access the [facility] Patient Portal on the Flipora. Simply click on Health Records under Livemap and then click on the Chauffeur Prive logo. HOW TO SAFELY DISPOSE OF PRESCRIPTION [...] Call your local pharmacy or go to [email or web address] [email or web address] to find one close to you.3.Make use of household items: Use cat litter or old coffee grounds to dispose medications if other options arenot available. Mix your drugs with these household products, seal them in an airtight container andthrow it into the garbage. Call [facility]: [phone] to be sure your drugs can be [...] Patient Education Materials Urinary Tract Infection, Adult, Hnkd-yo-Rpmy Medication Leaflets My discharge plan and instructions have been reviewed and explained to me and I,LALY NAVAS understand my current condition and have read and understand these discharge instructions. I have received a written copy of the plan/instructions. If I have questions, I am aware that I should contact my doctor. 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: Date/Time: Relationship to Patient: Witness Name/Signature: Date/Time: [facility] HospitalWfbxjysu74-53-0984 Discharge summary Date of Service 01/06/2023 Discharge [...] Code Status - Ordered -- 01/01/23 17:37:00 BOBBY FAYRCC-Arrest Intubate & Mechanical Vent, Constant Order Admission [...] schedule a follow up appointment Where: [address] [place] [address] Gynecologic Oncology [place] [id number]- Follow Up Appointments 2 week follow up [...] PM Digitally Signed by FLIP MARTIN MD [facility] HospitalRezdbcaz56-68-1810 Note Date of Service 01/06/2023 Chief Complaint [...] AM Digitally Signed by FLIP MARTIN MD [facility] HospitalZvphcaln52-62-7517 Note Date of Service 01/05/2023 Chief Complaint [...] ENZO JONES DO on 01/05/2023 08:50 AM [facility] HospitalFnybwelz78-15-1908 Note Date of Service 01/05/2023 Chief Complaint [...] ENZO JONES DO on 01/05/2023 08:50 AM [facility] HospitalRpltisko54-90-7144 Note Date of Service 01/05/2023 Chief Complaint [...] ENZO JONES DO on 01/05/2023 08:50 AM [facility] HospitalUpjlqjhs02-83-3386 Note Date of Service 01/05/2023 Chief Complaint [...] ENZO JONES DO on 01/05/2023 08:50 AM [facility] HospitalIxtrnpjr82-97-4253 Note Date of Service 01/04/23 Chief Complaint [...] entire meals. She states that the Dilaudid GERIATRIC CARE MANAGER helpswith her pain. She is denying any [...] mL, IV Push, q4h Continuous: (2) HYDROmorphone GERIATRIC CARE MANAGER in 50mL NS 10 mg 10 mg [...] to history of chemoradiation therapy - Dilaudid GERIATRIC CARE MANAGER started overnight History of cervical cancer - [...] resolving with remeron Disposition: IV antibiotics. dilaudid GERIATRIC CARE MANAGER for pain control Digitally Signed by NIECY THAPA DO on 01/04/2023 07:25 AM [facility] HospitalUkvpqdtn31-47-7179 Note Date of Service 01/04/23 Chief Complaint [...] entire meals. She states that the Dilaudid GERIATRIC CARE MANAGER helpswith her pain. She is denying any [...] mL, IV Push, q4h Continuous: (2) HYDROmorphone GERIATRIC CARE MANAGER in 50mL NS 10 mg 10 mg [...] to history of chemoradiation therapy - Dilaudid GERIATRIC CARE MANAGER started overnight History of cervical cancer - [...] resolving with remeron Disposition: IV antibiotics. dilaudid GERIATRIC CARE MANAGER for pain control Digitally Signed by NIECY THAPA DO on 01/04/2023 07:25 AM [facility] HospitalRodgaoxu02-65-1274 Note Date of Service 01/04/23 Chief Complaint [...] entire meals. She states that the Dilaudid GERIATRIC CARE MANAGER helpswith her pain. She is denying any [...] mL, IV Push, q4h Continuous: (2) HYDROmorphone GERIATRIC CARE MANAGER in 50mL NS 10 mg 10 mg [...] to history of chemoradiation therapy - Dilaudid GERIATRIC CARE MANAGER started overnight History of cervical cancer - [...] resolving with remeron Disposition: IV antibiotics. dilaudid GERIATRIC CARE MANAGER for pain control Digitally Signed by NIECY THAPA DO on 01/04/2023 07:25 AM [facility] HospitalCzgceayr49-01-6023 Note Date of Service 01/03/2023 Chief Complaint [...] Date: January 02, 2023 Verified By: VIRAL AMNUEL MD CLINICAL STATEMENT: IMPRESSION: Successful left percutaneous [...] ALANNA SCANLON DO on 01/03/2023 07:57 AM [facility] HospitalBqzdvojg01-79-6047 Consult note Chief complaint history of anxiety [...] CLOTILDE SHAY MD on 01/03/2023 11:53 AM [facility] HospitalMjdyvzmf04-51-9139 Note Date of Service 01/03/2023 Chief Complaint [...] ALANNA SCANLON DO on 01/03/2023 07:57 AM [facility] HospitalAvpupilh99-44-8047 Note IR Procedure Record Summary Primary Physician: VIRAL MANUEL MD Finalized Date/Time: 01/03/23 09:23:36 Pt. Name: LALY NAVAS /Sex: 1990 Female Med Rec #: [id number] Physician: FLIP MARTIN MD Financial #: [id number] Pt. Type: I Room/Bed: [facility]/A Admit/Disch: 01/01/23 16:28:38 - Institution: Allergies identified in patient's electronic medical record at time of printing on 01/03/23 Entry 1 Entry 2 Substance Oranges penicillin Reaction Type Allergy Allergy Last Modified By: JAMAL Scott RN Evan 02/03/21 10/04/22 08:25:47 17:13:24 Case Attendance- IR Entry 1 Entry 2 Entry 3 Case Attendee VIRAL MANUEL MD, OrchestratorMendel Lindsey, RN Gail Phillips Role Performed Primary [...] EBL 1 mL Last Modified By: JAMAL Lindseyh Alan 01/02/23 15:44:39 Radiology Procedure Details - IR [...] than Primary Last Modified By: Patti Ching Orchestrator 01/02/23 15:28:35 Immediate Post Procedure Note - IR Signed By: VIRAL MANUEL MD 01/02/23 15:46 Allergy Information- IR Entry 1 Allergies Reviewed? Yes Allergies Reviewed Patient With Last Modified By: Patti Ching Orchestrator 01/02/23 15:25:06 Radiology Protocols/Time Out- IR Entry [...] are properly E, Patti Ching labeled and Orchestrator appropriately displayed, Alcohol based prep dry Instrument [...] Method N/A Last Modified By: Patti Ching Tech 01/02/23 15:28:03 Patient Positioning- IR Entry 1 Procedure IR Neph Cath-Neph Body Position OP Prone Ureter W/Guide Left SN Feet Uncrossed? Yes Pressure Points Yes Checked Last Modified By: Patti Ching Tech 01/02/23 15:28:11 Radiology Procedure Plan - IR [...] Radiology - Action Plan Outcomes Met? Yes Senior Network Engineer JAMAL Lindsey Completing Procedure Plan Last Modified By: Patti Ching Tech 01/02/23 15:28:48 Case Comments Had to remove JAMAL Joyce, [place] and patient from room using procedure stop time. Then Edit rad procedure details Fluoro MGY and Total time which I got from IR Equipment/Techs notes so that the document would be complete then finalized it so charges could drop and report could flow to [facility]. Sintia RT- R(CV) Parts Counter Representative 01-03-2023 Finalized By: Ana Tipton Document Signatures Signed By: Ana Tipton 01/03/23 09:23 [facility] HospitalAdtzlcps22-80-8575 Note Date of Service 01/03/2023 Chief Complaint [...] ALANNA SCANLON DO on 01/03/2023 07:57 AM [facility] HospitalAybgdhug08-82-3397 Note ORIGINAL PROCEDURE: Nephrostogram with left percutaneous [...] in the usual sterile fashion. A fluoroscopic spray maker image was obtained demonstrating the expected position [...] Sign Date: 01/03/2023 12:42:41 AM Ordering Provider: [facility]03-02-2023 Note Date of Service 01/02/2023 Chief [...] ALANNA SCANLON DO on 01/02/2023 07:57 AM [facility] HospitalNhfpqwiy79-34-7766 Note ORIGINAL PROCEDURE: Nephrostogram with left percutaneous [...] in the usual sterile fashion. A fluoroscopic spray maker image was obtained demonstrating the expected position [...] Date: 01/03/2023 12:42:41 AM Ordering Provider: ALANNA [facility]03-02-2023 Note System generated consult secondary to documented left nephrostomy tube. System intact with Band-Aidover insertion site. Patient states plan is for an exchange today. No needs at this time. Digitally Signed by JAMAL Bach February01/02/2023 11:29 AM [facility] HospitalOxowdeoh24-57-3338 Note Date of Service 01/02/2023 Chief Complaint [...] ALANNA SCANLON DO on 01/02/2023 07:57 AM [facility] HospitalVkalrvex79-25-9625 History and physical note Date of Service [...] chest pain, dizziness, vaginal bleeding, vaginal discharge. 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 Amenorrheic since initiation of Chemoradiation. Denies mammogram ever. Colonoscopy in 2019. Denies history of STDs. Not sexually active. Family History Mother with breast cancer Sister with cervical cancer Grandmother with cervical cancer Aunts with cervical cancer Cousins with cervical cancer ONCOLOGY HISTORY: - 04/04/2020: CT scan abdomen and pelvis. [facility]. Thickened cervical wall with involvementof the lower [...] underwent for intracavitary brachii therapy applications with uwzp-pjnk-ryje iridium 192afterloading device utilizing a tandem and [...] Start Date End Date Elapsed Days IMRT MANAGER OF HOSPITAL Pelvis 6X 180 4,500 04/26/2020 06/02/2020 37 3D PM Bst 18X 180 540 06/05/2020 06/07/2020 2 GENETIC TESTING: - [facility] No reportable somatic or germline [...] (01/01/23 13:18:00) UA CA Ox Crystal: 2+ (01/01/23:18:00) UA Trip Rai Crystals: 3+ (01/01/23 13:18:00) Glucose Level: 84 mg/dL (01/01/23 13:18:00) Sodium Level: 139 mEq/L (01/01/23 13:18:00) Potassium Level: 3.8 mEq/L (01/01/23 13:18:00) Chloride: 112 mEq/L High (01/01/23 13:18:00) CO2: 25 mEq/L (01/01/23 13:18:00) Electrolyte Balance: 2 mEq/L Low (01/01/23:18:00) BUN: 11 mg/dL (01/01/23 13:18:00) Creatinine Lvl (s): 0.85 mg/dL (01/01/23 13:18:00) BUN/Creatinine Ratio: 12.9 ratio (01/01/23:18:) Calcium Lvl: 9.9 mg/dL (01/01/23 13:18:00) Magnesium Lvl: 1.9 mg/dL (01/01/23 13:18:00) Phosphorus: 3.1 mg/dL (01/01/23 13:18:00) Total Protein: 6.9 G/dL (01/01/23 13:18:00) Albumin Level: 3.8 G/dL (01/01/23 13:18:00) Globulin: 3.1 G/dL (01/01/23 13:18:00) A/G Ratio: 1.2 ratio (01/01/23 13:18:00) Bili Total: 0.2 mg/dL (01/01/23:18:00) Bili Direct: <0.1 (01/01/23:18:) Bili Indirect: Unable to Calculate (01/01/23:18:00) Alk Phos: 82 U/L (01/01/23 13:18:00) AST/SGOT: 14 U/L (01/01/23:18:00) ALT/SGPT: <8 Low (01/01/23:18:00) Iron: 35 mcg/dL Low (01/01/23:18:00) TIBC: 288 mcg/dL (01/01/23:18:) Iron Sat: 12 % (01/01/23:18:00) GFR Non-: >60 (01/01/23:18:00) GFR : >60 (01/01/23:18:) Ferritin: 48 ng/mL (01/01/23:18:) Folate: 9.92 ng/mL (01/01/23:18:00) Vit. D 25-Hydroxy: [...] ALANNA SCANLON DO on 01/01/2023 06:18 PM [facility] HospitalMbcbxezo60-41-2952 Note Date of Service 01/02/2023 Chief Complaint [...] ALANNA SCANLON DO on 01/02/2023 07:57 AM [facility] HospitalIfirbrlj59-05-4397 Note ORIGINAL EXAMINATION: CT UROGRAM 01/01/2023 6:17 [...] Date: 01/02/2023 12:04:48 AM Ordering Provider: ALANNA SCNALON [facility] HospitalCpdbazuw67-02-8022 Note ORIGINAL EXAMINATION: CT UROGRAM 01/01/2023 6:17 [...] Sign Date: 01/02/2023 12:04:48 AM Ordering Provider: [facility]03-01-2023 History and physical note Date of [...] chest pain, dizziness, vaginal bleeding, vaginal discharge. 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 Amenorrheic since initiation of Chemoradiation. Denies mammogram ever. Colonoscopy in 2020. Denies history of STDs. Not sexually active. Family History Mother with breast cancer Sister with cervical cancer Grandmother with cervical cancer Aunts with cervical cancer Cousins with cervical cancer ONCOLOGY HISTORY: - 04/04/2020: CT scan abdomen and pelvis. [facility]. Thickened cervical wall with involvementof the lower [...] underwent for intracavitary brachii therapy applications with nwkm-jsib-mqoe iridium 192afterloading device utilizing a tandem and [...] Start Date End Date Elapsed Days IMRT MANAGER OF HOSPITAL Pelvis 6X 180 4,500 04/26/2020 06/02/2020 37 3D PM Bst 18X 180 540 06/05/2020 06/07/2020 2 GENETIC TESTING: - Patient had genetic testing sent through [facility]. No reportable somatic or germline pathogenic [...] mEq/L High (01/01/23 13:18:00) CO2: 25 mEq/L (03/01/23 13:18:00) Electrolyte Balance: 2 mEq/L Low (01/01/23 13:18:00) BUN: 11 mg/dL (01/01/23:18:00) Creatinine Lvl (s): 0.85 mg/dL (01/01/23 13:18:00) BUN/Creatinine Ratio: 12.9 ratio (01/01/23 13:18:00) Calcium Lvl: 9.9 mg/dL (01/01/23:18:00) Magnesium Lvl: 1.9 mg/dL (01/01/23:18:00) Phosphorus: 3.1 mg/dL (01/01/23 13:18:00) Total Protein: 6.9 G/dL (01/01/23:18:00) Albumin Level: 3.8 G/dL (01/01/23:18:00) Globulin: 3.1 G/dL (01/01/23 13:18:00) A/G Ratio: 1.2 ratio (01/01/23:18:) Bili Total: 0.2 mg/dL (01/01/23:18:00) Bili Direct: <0.1 (01/01/23:18:00) Bili Indirect: Unable to Calculate (01/01/23:18:00) Alk Phos: 82 U/L (01/01/23 13:18:00) AST/SGOT: 14 U/L (01/01/23 13:18:00) ALT/SGPT: <8 Low (01/01/23:18:00) Iron: 35 mcg/dL Low (01/01/23:18:00) TIBC: 288 mcg/dL (01/01/23 13:18:00) Iron Sat: 12 % (01/01/23:18:00) GFR Non-: >60 (01/01/23:18:00) GFR : >60 (01/01/23:18:00) Ferritin: 48 ng/mL (01/01/23 13:18:00) Folate: 9.92 [...] ALANNA SCANLON DO on 01/01/2023 06:18 PM [facility] HospitalBkpvqkie92-04-5619 Summary of episode note LALY NAVAS :1990 Visit Date:01/01/2023 Your Visit Summary Your Diagnosis Malignant neoplasm of cervix uteri, unspecified, Cervical cancer Tests Performed .Auto Differential .Estimated Glomerular Filtration Rate .Neutro Absolute B12 Basic Metabolic Panel Complete Blood Count Ferritin Folate Level Hepatic Function Panel (Cancer Center) Iron Studies Magnesium Level Phosphorus Level [...] Folate - 9.92 ng/mL Hepatic Function Panel ([facility]) (01/01/2023) Total Protein - 6.9 G/dL Albumin [...] to receive it can visit one of [facility] vaccine clinics. There are many vaccine clinic locations within the [facility]. For locations and available times, please visit www.gettheshot.coronavirus.[place].gov/. It is important to note that some COVID mobile vaccine clinics are held outdoors and may be canceled in rainy or stormy conditions. To learn more about pediatric vaccinations (ages 5-11), we invite you to visit the [facility] webpage. https://www.[facility].org/pages/9982-Mlpaf-Ggdpfidkzoj-Lhgxxqdlnt-Dzrxy-Irk stions.htmlTo learn more about the COVID-19 vaccine, we invite you to visit the CDC website for a list of frequently asked questions. https://www.cdc.gov/coronavirus/2019-ncov/vaccines/faq.html [facility] Patient Portal Access Instructions: Stay connected with your healthcare team and access your personal medical information anytime with the [facility] Patient Portal.If you would like a full copy of your medical records, please contact the [facility] Medical Records Department, Friday through Friday between 8a.m. and 4:30p.m. Please follow the directions below to access the portal: 1.Access the email account you provided upon registration to the hospital.2.Look for an invitation email from [facility].3.Open the email and access the invitation link: Accept Invitation to [facility]4.Fill in the required quintero to create your account. Sign into [email or web address] with your username and password that you [...] you will allow to register on the [facility] Patient Portal for access to your information. You can also access the [facility] Patient Portal on the Reconnex joya. Simply click on Health Records under Livemap and then click on the Chauffeur Prive logo. HOW TO SAFELY DISPOSE OF PRESCRIPTION [...] Call your local pharmacy or go to [email or web address] [email or web address]/[email or web address] to find one close to you.3.Make use of household items: Use cat litter or old coffee grounds to dispose medications if other options arenot available. Mix your drugs with these household products, seal them in an airtight container andthrow it into the garbage. Call [facility]: [phone] to be sure your drugs can be [...] aware that I should contact my doctor. 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: Date/Time: Relationship to Patient: Witness Name/Signature: Date/Time: [facility] HospitalQssihazo44-17-5011 Evaluation + Plan noteExtracted from: Title:History and [...] Date:01/30/2023 02:10:00 PM Scheduled Provider:FLIP MARTIN MD Location:MANAGER OF HOSPITAL ONC Appointment Type:SO OV Follow Up Appointment [...] IR Neph Cath-Neph Ureter W/Guide Left 02/17/23 [facility] 01-13-2023 Note ORIGINAL PROCEDURE: INTRODUCTION-NEPHRO TUBE MODERATE CONSCIOUS SEDATION 11/15/2022 HISTORY: ORDERING SYSTEM PROVIDED HISTORY: Reason for Exam: CERVICAL CA, LAST CHANGE 10/02/22 TECHNIQUE: Fluoroscopy CONTRAST: 8 cc Omnipaque 300 SEDATION: Moderate sedation was ordered and supervised by the attending with physician kcmv-ws-eagy monitoring. Medications were provided and recorded by Radiology nurses. FLUOROSCOPY DOSE AND TYPE OR TIME AND EXPOSURES: Fluoroscopy: Time: 23.8 minutes. Air kerma: 92.0 mGy Number of images: 15 DESCRIPTION OF PROCEDURE: Informed consent was obtained after a detailed explanation of the procedure including risks, benefits, and alternatives. Payne protocol was observed. Sterile gowns, masks, hats [...] to the urinary bladder. 9 and 10 Afghan vascular sheath were guided over the catheter [...] was then readily removed. A new 8 Afghan 24 cm nephroureteral stent was guided into [...] balloon. 3. Placement of a new 8 Afghan 24 cm nephroureteral stent in the left renal collecting system Interpreted by: Janet Florez Preliminary Report By: Janet Florez Electronically signed By Janet Florez Dictated Date: 11/15/2022 4:52:51 PM Prelim Date: 11/15/2022 5:22:54 PM Sign Date: 11/15/2022 5:22:54 PM Ordering Provider: [facility]ITTNI LU [id number] Discharge instructions Patient Education 11/15/2022 13:39:47 Radiology- Nephrostomy Tube Insertion (CUSTOM) ESPARTO Nephrostomy Tube Exchange Discharge Instructions Interventional Radiology [facility] Services [address] [place] [address] The procedure that you had done today [...] mayexperience the feeling of needing to urinate. Vnhj-fzg-ohmwanm pain medication should be used for pain [...] instruction below: 8:00 am- 5:00 pm call [phone] After 5:00 pm call [phone] After 24 hours, contact the physician who [...] until you are awake and alert. Take ihyu-qfy-vvtjpdr and prescription medicines only as told by [...] 08/10/2014 Document Revised: 10/02/2018 Document Reviewed: 02/08/2017 [employer] Patient Education Taykey. Follow Up Care 11/12/2022 14:00:32 With:BRITTNI LU APRN-ELECTRIC MOTOR TESTER Address: [address] [place] [address] [place] [phone] When: Unknown Comments:Follow-up as scheduled With:Call Physician Referral Address:Unknown When: Unknown [facility] 01-13-2023 Evaluation + Plan noteExtracted from: [...] Ready to change: Yes. Physical Exam Vitals: Qplevvlshyr79.8 (09:52) Systolic Blood PressureNo result Diastolic Blood PressureNo result Pulse69 (09:52) RhV356 (09:52) Respiratory Rate14 (09:52) General: Alert, cooperative. [...] Date:11/20/2022 09:00:00 AM Scheduled Provider:FLIP MARTIN MD Location:[facility]C Appointment Type:SO OV Appointment Date:01/01/2023 11:30:00 AM Scheduled Provider:FLIP MARTIN MD Location:MANA[facility] OF HOSPITAL ONC Appointment Type:SO OV Follow Up Diagnostic [...] IR Neph Cath-Neph Ureter W/Guide Left 06/02/23 [facility] 01-13-2023 Summary of episode note Discharge Instructions Thank you for allowing [facility] to assist you with your healthcare needs. The following is importantdischarge information regarding your hospital visit. Your Care Team FLIP MARTIN MD What to do next Scheduled Follow-Up Appointments Appointment Type When With Where Contact InformationSO OV 11/20/2022 09:00 AM FLIP CORRALES MD Gynecologic Oncology [address] [place] [phone] SO OV Follow Up 01/01/2023 11:30 AM FLIP CORRALES MD Gynecologic Oncology [address] [place] [address] Follow Up Appointments Follow Up with BRITTNI LU When Why: Follow-up as scheduled Where: [address] [place] [address] [place] [phone] Follow Up with Call Physician Referral When [...] medication providers or retail pharmacies. Education Materials ESPARTO Nephrostomy Tube Exchange Discharge Instructions Interventional Radiology [facility] [address] [place] [address] The procedure that you had done today [...] mayexperience the feeling of needing to urinate. Dddg-snp-hdpufnk pain medication should be used for pain [...] instruction below: 8:00 am- 5:00 pm call [phone] After 5:00 pm call [phone] After 24 hours, contact the physician who [...] until you are awake and alert. Take zdtb-pxg-tmqhikb and prescription medicines only as told by [...] 08/10/2014 Document Revised: 10/02/2018 Document Reviewed: 02/08/2017 [employer] Patient Education 2020 [employer] Additional Information VACCINATE! IT SAVES LIVES! Members of the community who have not yet received the COVID-19 vaccine and would like to receive it can visit one of [facility] vaccine clinics. There are many vaccine clinic locations within the [facility]. For locations and available times, please visit [email or web address]/. It is important to note that some COVID mobile vaccine clinics are held outdoors and may be canceled in rainy or stormy conditions. To learn more about pediatric vaccinations (ages 5-11), we invite you to visit the [facility] webpage. https://www.[email or web address].org/pages/5240-Hpoot-Gkjlcqxlnvk-Wyqhlwwvvv-Vhnhr-Lrf stions.htmlTo learn more about the COVID-19 vaccine, we invite you to visit the [facility] website for a list of frequently asked questions. [email or web address]/rtuwx-Zsgilgf-Biehuztaeo _Asked-Questions.pdf [facility] Patient Portal Access Instructions: Stay connected with your healthcare team and access your personal medical information anytime with the [facility] Patient Portal.If you would like a full copy of your medical records, please contact the [facility] Medical Records Department, Friday through Friday between 8a.m. and 4:30p.m. Please follow the directions below to access the portal: 1.Access the email account you provided upon [facility].2.Look for an invitation email from [facility].3.Open the email and access the invitation link: Accept Invitation to [facility]4.Fill in the required quintero to create your account. Sign into www.[email or web address] with your username and password that you [...] you will allow to register on the [facility] Patient Portal for access to your information. You can also access the [facility] Patient Portal on the Flipora. Simply click on Health Records under Undo Software[employer] and then click on the [employer] P[employer] logo. HOW TO SAFELY DISPOSE OF PRESCRIPTION [...] Call your local pharmacy or go to [email or web address] [email or web address] to find one close to you.3.Make use of household items: Use cat litter or old coffee grounds to dispose medications if other options arenot available. Mix your drugs with these household products, seal them in an airtight container andthrow it into the garbage. Call [facility]: [phone] to be sure your drugs can be [...] aware that I should contact my doctor. 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 Medications were provided and recorded by Radiology nurses. FLUOROSCOPY DOSE AND TYPE OR TIME AND EXPOSURES: Fluoroscopy: Time: 23.8 minutes. Air kerma: 92.0 mGy Number of images: 15 DESCRIPTION OF PROCEDURE: Informed consent was obtained after a detailed explanation of the procedure including risks, benefits, and alternatives. Payne protocol was observed. Sterile gowns, masks, hats [...] to the urinary bladder. 9 and 10 Afghan vascular sheath were guided over the catheter [...] was then readily removed. A new 8 Afghan 24 cm nephroureteral stent was guided into [...] balloon. 3. Placement of a new 8 Afghan 24 cm nephroureteral stent in the left renal collecting system Interpreted by: Janet Florez Preliminary Report By: Janet Florez Electronically signed By Janet Florez Dictated Date: 11/15/2022 4:52:51 PM Prelim Date: 11/15/2022 5:22:54 PM Sign Date: 11/15/2022 5:22:54 PM Ordering Provider: [facility]01[facility]13-2023 Note IR Procedure Record Summary Primary Physician: Finalized Date/Time: 11/15/22 12:56:45 Pt. Name: ANTONELLALALYO.B./Sex: 1990 Female Med Rec #: [id number] Physician: Financial #: [id number] Pt. Type: O Room/Bed: / Admit/Disch: 11/15/22 09:39:00 - Institution: Allergies identified in patient's electronic medical record at time of printing on 11/15/22 Entry 1 Entry 2 Substance Oranges penicillin Reaction Type Allergy Allergy Last Modified By: JAMAL Scott RN Evan 02/03/21 10/04/22 08:25:47 17:13:24 Case Attendance- IR Entry 1 Entry 2 Entry 3 Case Attendee GAUTAM, JANET Lindsey, Padmini Alarcon Orchestrator Role Performed Radiologist Procedure Procedure Nurse Scrub [...] 4 X 5, Gauze Technologist Notes 8.5F [place] sponge 4 X 4 Nephroureterostomy stent LT Renal Last Modified By: Karolina Prater 11/15/22 12:52:49 Cultures and Specimens- IR Entry 1 Kind Culture Type Urine Date/Time 11/15/22 11:30:00 Source LT Renal Last Modified By: Sandi Sam Fortune Alice 11/15/22 11:36:35 General Case Data - IR Entry 1 Case Information Room AH IR 17 Case Level IR Level 2 Wound Class None Specialty SN Radiology Procedure ASA Class None Diagnosis Preop Diagnosis cerival cancer Postop Same As Preop Yes Postop Diagnosis cerival cancer Last Modified By: Sandi Sam Fortune Alice 11/15/22 11:37:38 Medication Administration- IR Entry 1 [...] Padmini Fairchild Rad results are properly Tech, Bollon, Orchestrator labeled and Devika A appropriately displayed, Confirm/obtain preop antibiotic order., Double verification of sterility indicators complete Instrument Sterility Team Members JANET FLOREZ MD, Verifying Sterility JAMAL Lindsey, FierstoPadmini patterson Orchestrator, Bollon, Orchestrator Devika A Procedure IR Neph Cath-Neph Ureter W/Guide Left SN Last Modified By: Sam Junior Devika A 11/15/22 11:31:48 Skin Prep- IR Entry 1 Procedure IR Neph Cath-Neph Ureter W/Guide Left SN Skin Prep Prep Area Back Side Left By Padmini Fairchild Prep Agents Betadine Solution Tech Hair Removal [...] Radiology - Action Plan Outcomes Met? Yes Senior Network Engineer JAMAL Lindsey, Completing Sam Junior Procedure Plan [...] Signatures Signed By: Karolina Prater 11/15/22 12:56 [facility] [id number] Discharge summary Date of Service 11/15/2022 Discharge [...] JANET FLOREZ MD on 11/15/2022 12:51 PM [facility] [id number] Interventional radiology Consult note INTERVENTIONAL RADIOLOGY POST PROCEDURE NOTE DATE: 11/15/2022 12:39:24 NAME: LALY NAVAS Pre-Procedure Diagnosis: _Bladder cancer Post Procedure Diagnosis: Same. Tanker Driver: Dr. Caio Florez Procedure: _Nu stent exchange [...] Boyce MD Interventional Radiology IR dept: x [id number] Available on [facility] [employer] Digitally Signed by JANET FLOREZ MD on 11/15/2022 12:40 PM [facility] HospitalIcdvfhhm49-47-6419 Note Interventional Radiology Focused Preprocedure History/Physical Reason [...] Ready to change: Yes. Physical Exam Vitals: Apjpzwgqweq06.8 (09:52) Systolic Blood PressureNo result Diastolic Blood PressureNo result Pulse69 (09:52) QlN027 (09:52) Respiratory Rate14 (09:52) General: Alert, cooperative. [...] JANET FLOREZ MD on 11/15/2022 01:56 PM [facility] [id number] Hospital Discharge instructions Patient Education 10/08/2022 16:44:11 Pyelonephritis, Adult, Kqwv-zk-Ibli Pyelonephritis, Adult Pyelonephritis is an infection that [...] even if youstart to feel better. Take fikf-sqz-unxwqzt and prescription medicines only as told by [...] 11/27/2005 Document Revised: 08/24/2019 Document Reviewed: 08/24/2019 [employer] Patient Education 2020 [employer]. Follow Up Care 09/30/2022 10:05:59 With:[facility] Address: When: Unknown Comments:[facility] to provide iv pole, tubing, and medication for iv antibiotics With:FLIP MARTIN Address: [address] [place] [address] [place] [address]- Business (1) When: Unknown Comments:Please call the office to schedule a follow up appointment within 2 weeks With:[facility] Address:Unknown When:10/11/2022 09:00:00 Comments:Outpatient port care dressing change and labs [facility] 12-06-2022 Note Discharge Instructions Thank you [...] 01/01/2023 11:30 AM EST FLIP MARTIN MD [facility] [address] [place] [phone] Follow Up Appointments Follow Up with [facility] When 10/11/2022 09:00 AM EST Why: Outpatient port care dressing change and labs Follow Up with [facility] When Why: [facility] to provide iv pole, tubing, and medication for iv antibiotics Where: Follow Up with FLIP MARTIN When Why: Please call the office to schedule a follow up appointment within 2 weeks Where: [address] [place] [address] [place] [address]- Business (1) The Following Activity and Diet [...] needed for constipation Refills: 2 Pickup at [facility] New dronabinol (Marinol 2.5 mg oral capsule) 1 cap by mouth Two (2) times a day Cervical cancer Decreased appetite Duration: 21 Days Pickup at [facility] New gabapentin (gabapentin 300 mg oral capsule) 1 cap by mouth Daily at bedtime Cervical cancer Duration: 30 Days Refills: 3 Pickup at [facility] New meropenem (meropenem 1000 mg intravenous injection) 1,000 Milligram IV Piggyback Every 8 hours New morphine (MS Contin 30 mg/ 8-12 hrs oral tablet, extended release) 1 tab(s) by mouth Every 12 hours Cervical cancer Duration: 21 Days Pickup at [facility] New oxyCODONE (oxyCODONE 10 mg oral tablet ( IMMEDIATE release )) 1 tab(s) by mouth Every 4 hours as needed for abdominal discomfort Cervical cancer Duration: 21 Days Pickup at [facility] Unchanged acetaminophen (Tylenol 325 mg oral capsule) [...] prior to taking pain medication Pickup at [facility] Unchanged sodium chloride (Normal Saline Flush 0.9% injectable solution) 10 Milliliter IR Drain Every day Pickup at [facility] Pharmacy Information [facility]: [address] [place] [phone] [facility]: [address] [place] [phone] What How Much When Why Comments Stop [...] even if youstart to feel better. Take zesn-ckk-uoabczu and prescription medicines only as told by [...] 11/27/2005 Document Revised: 08/24/2019 Document Reviewed: 08/24/2019 [employer] Patient Education 2020 [employer] Additional Information VACCINATE! IT SAVES LIVES! Members of the community who have not yet received the COVID-19 vaccine and would like to receive it can visit one of [facility] vaccine clinics. There are many vaccine clinic locations within the [facility]. For locations and available times, please visit [email or web address].gov/. It is important to note that some COVID mobile vaccine clinics are held outdoors and may be canceled in rainy or stormy conditions. To learn more about pediatric vaccinations (ages 5-11), we invite you to visit the [facility] webpage. https://www.[email or web address]/pages/6986-Kiwgi-Zxegspavopx-Wmltcvlcdu-Azuju-Vtg stions.htmlTo learn more about the COVID-19 vaccine, we invite you to visit the [employer] website for a list of frequently asked questions. [email or web address] _Asked-Questions.pdf [facility] Patient Portal Access Instructions: Stay connected with your healthcare team and access your personal medical information anytime with the [facility] Patient Portal.If you would like a full copy of your medical records, please contact the [facility] Medical Records Department, Friday through Friday between 8a.m. and 4:30p.m. Please follow the directions below to access the portal: 1.Access the email account you provided upon registration to the hospital.2.Look for an invitation email from [facility].3.Open the email and access the invitation link: Accept Invitation to [facility]4.Fill in the required quintero to create your account. Sign into www.[email or web address] with your username and password that you [...] you will allow to register on the [employer] Patient Portal for access to your information. You can also access the [employer] Patient Portal on the Reconnex joya. Simply click on Health Records under Livemap and then click on the Chauffeur Prive logo. HOW TO SAFELY DISPOSE OF PRESCRIPTION [...] Call your local pharmacy or go to [email or web address] [email or web address]/[email or web address] to find one close to you.3.Make use of household items: Use cat litter or old coffee grounds to dispose medications if other options arenot available. Mix your drugs with these household products, seal them in an airtight container andthrow it into the garbage. Call [facility]: [phone] to be sure your drugs can be [...] COPY. Signatures Patient Education Materials Pyelonephritis, Adult, Qvzo-cq-Unyi Medication Leaflets My discharge plan and instructions have been reviewed and explained to me and I,LALY NAVAS understand my current condition and have read and understand these discharge instructions. I have received a written copy of the plan/instructions. If I have questions, I am aware that I should contact my doctor. 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 Successful placement of a new 8 Afghan 26 cm left nephroureteral stent. 2. Left [...] DILLAN KUMAR MD on 10/08/2022 05:52 AM [facility] [id number] Note Date of Service 10/08/22 Chief Complaint [...] 1. Successful placement of a new 8 Afghan 26 cm left nephroureteral stent. 2. Left [...] DILLAN KUMAR MD on 10/08/2022 05:52 AM [facility] [id number] Note Date of Service 10/08/22 Chief Complaint [...] 1. Successful placement of a new 8 Afghan 26 cm left nephroureteral stent. 2. Left [...] DILLAN KUMAR MD on 10/08/2022 05:52 AM [facility] [id number] Nurse Progress note Tried explaining to patient [...] by JAMAL Ferrer on 10/08/2022 12:32 AM [facility] [id number] Note Date of Service 10/07/22 Chief Complaint [...] 1. Successful placement of a new 8 Afghan 26 cm left nephroureteral stent. 2. Left [...] -Renal function Left:right, 27:73%. -Current Pain management: GERIATRIC CARE MANAGER, 15 mg MS Contin BID, Gabapentin 300 [...] DILLAN KUMAR MD on 10/07/2022 06:01 AM [facility] [id number] Note Date of Service 10/07/22 Chief Complaint [...] 1. Successful placement of a new 8 Afghan 26 cm left nephroureteral stent. 2. Left [...] -Renal function Left:right, 27:73%. -Current Pain management: GERIATRIC CARE MANAGER, 15 mg MS Contin BID, Gabapentin 300 [...] DILLAN KUMAR MD on 10/07/2022 06:01 AM [facility] [id number] Note Date of Service 10/06/22 Chief Complaint [...] mL, IR Drain, q8h Continuous: (1) HYDROmorphone GERIATRIC CARE MANAGER in 50mL NS 10 mg 10 mg [...] 1. Successful placement of a new 8 Afghan 26 cm left nephroureteral stent. 2. Left [...] -Renal function Left:right, 27:73%. -Current Pain management: GERIATRIC CARE MANAGER, 15 mg MS Contin BID, Gabapentin 300 [...] DILLAN KUMAR MD on 10/06/2022 08:18 AM [facility] [id number] Note Date of Service 10/06/22 Chief Complaint [...] mL, IR Drain, q8h Continuous: (1) HYDROmorphone GERIATRIC CARE MANAGER in 50mL NS 10 mg 10 mg [...] 1. Successful placement of a new 8 Afghan 26 cm left nephroureteral stent. 2. Left [...] -Renal function Left:right, 27:73%. -Current Pain management: GERIATRIC CARE MANAGER, 15 mg MS Contin BID, Gabapentin 300 [...] DILLAN KUMAR MD on 10/06/2022 08:18 AM [facility] [id number] Note Date of Service 10/06/22 Chief Complaint [...] mL, IR Drain, q8h Continuous: (1) HYDROmorphone GERIATRIC CARE MANAGER in 50mL NS 10 mg 10 mg [...] 1. Successful placement of a new 8 Afghan 26 cm left nephroureteral stent. 2. Left [...] -Renal function Left:right, 27:73%. -Current Pain management: GERIATRIC CARE MANAGER, 15 mg MS Contin BID, Gabapentin 300 [...] DILLAN KUMAR MD on 10/06/2022 08:18 AM [facility] [id number] Note ORIGINAL EXAMINATION: CT UROGRAM 10/05/2022 2:05 [...] pathologically enlarged left para-aortic lymph nodes seen. 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 The [...] Sign Date: 10/05/2022 9:17:10 PM Ordering Provider: [facility]12-03-2022 Note Date of Service 10/05/22 [...] mL, IR Drain, q8h Continuous: (1) HYDROmorphone GERIATRIC CARE MANAGER in 50mL NS 10 mg 10 mg [...] 1. Successful placement of a new 8 Afghan 26 cm left nephroureteral stent. 2. Left [...] with Dr. Martin. -Renal function Left:right, 27:73%. -GERIATRIC CARE MANAGER continued for now, consider d/c to oral [...] DILLAN KUMAR MD on 10/05/2022 08:33 AM [facility] [id number] Note Date of Service 10/05/22 Chief Complaint [...] mL, IR Drain, q8h Continuous: (1) HYDROmorphone GERIATRIC CARE MANAGER in 50mL NS 10 mg 10 mg [...] 1. Successful placement of a new 8 Afghan 26 cm left nephroureteral stent. 2. Left [...] with Dr. Martin. -Renal function Left:right, 27:73%. -GERIATRIC CARE MANAGER continued for now, consider d/c to oral [...] DILLAN KUMAR MD on 10/05/2022 08:33 AM [facility] [id number] Note Date of Service 10/04/22 Chief Complaint [...] mL, IR Drain, q8h Continuous: (1) HYDROmorphone GERIATRIC CARE MANAGER in 50mL NS 10 mg 10 mg [...] 1. Successful placement of a new 8 Afghan 26 cm left nephroureteral stent. 2. Left [...] from her pyelonephritis. We will stop the GERIATRIC CARE MANAGER and transition to oral medications. Will discuss [...] DILLAN KUMAR MD on 10/04/2022 06:55 AM [facility] [id number] Infectious disease Progress note Date of Service 10/04/2022 Objective Vitals and Measurements T: 36.7 C (Oral) TMIN: 36.7 C (Oral) TMAX: 36.9 C (Oral) HR: 88 RR: 18 BP: 108/73 SpO2: 98% Physical Exam Chart reviewed, patient examined. Patient is alert and oriented x3, tearful and a bit anxious but FSC, resting in bed on Dilaudid GERIATRIC CARE MANAGER pump. Dilaudid PCR syringe is empty, RN [...] Patient reports she is very unhappy with MANAGER OF HOSPITAL resident who assessed her this morning. Requesting to speak with Dr Martin. quality improvement engineer notified. SGOT 12, SGPT <7 FOCUSED ASSESSMENT: [...] Daily sodium chloride 0.9% 10 ml syringe jreri flush 10 mL, IR Drain, q8h Continuous: (1) HYDROmorphone GERIATRIC CARE MANAGER in 50mL NS 10 mg 10 mg [...] Emili Clark RN on 10/04/2022 09:27 AM [facility] HospitalGocdehdz28-57-7149 Infectious disease Progress note Date of Service 10/04/2022 Objective Vitals and Measurements T: 36.7 C (Oral) TMIN: 36.7 C (Oral) TMAX: 36.9 C (Oral) HR: 88 RR: 18 BP: 108/73 SpO2: 98% Physical Exam Chart reviewed, patient examined. Patient is alert and oriented x3, tearful and a bit anxious but FSC, resting in bed on Dilaudid GERIATRIC CARE MANAGER pump. Dilaudid PCR syringe is empty, RN [...] Patient reports she is very unhappy with MANAGER OF HOSPITAL resident who assessed her this morning. Requesting to speak with Dr Martin. quality improvement engineer notified. SGOT 12, SGPT <7 FOCUSED ASSESSMENT: [...] mL, IR Drain, q8h Continuous: (1) HYDROmorphone GERIATRIC CARE MANAGER in 50mL NS 10 mg 10 mg [...] Emili Clark RN on 10/04/2022 09:27 AM [facility] [id number] Note Date of Service 10/04/22 Chief Complaint [...] mL, IR Drain, q8h Continuous: (1) HYDROmorphone GERIATRIC CARE MANAGER in 50mL NS 10 mg 10 mg [...] 1. Successful placement of a new 8 Afghan 26 cm left nephroureteral stent. 2. Left [...] from her pyelonephritis. We will stop the GERIATRIC CARE MANAGER and transition to oral medications. Will discuss [...] DILLAN KUMAR MD on 10/04/2022 06:55 AM [place] [address]-01-2022 Note Date of Service 10/03/2022 Chief Complaint Abdominal pain Difficulty urinating Subjective Patient reports her acute pain has improved with the Dilaudid GERIATRIC CARE MANAGER however her chronic pain at the nephrostomy [...] mL, IR Drain, q8h Continuous: (1) HYDROmorphone GERIATRIC CARE MANAGER in 50mL NS 10 mg 10 mg [...] 1. Successful placement of a new 8 Afghan 26 cm left nephroureteral stent. 2. Left [...] for NM Kidney scan. Will discuss discontinuing GERIATRIC CARE MANAGER Dilaudid with Dr. Hilliard today. Digitally Signed by PRIMO CANELA MD on 10/03/2022 06:57 AM [id number] Note ORIGINAL EXAMINATION: NUCLEAR MEDICINE RENAL SCAN10/03/2022 [...] Date: 10/03/2022 2:27:51 PM Ordering Provider: DILLAN [facility]12-01-2022 Note ORIGINAL EXAMINATION: NUCLEAR MEDICINE RENAL SCAN10/03/2022 [...] Sign Date: 10/03/2022 2:27:51 PM Ordering Provider: [facility]12-01-2022 Infectious disease Progress note Date of Service 10/03/2022 Objective Vitals and Measurements T: 36.7 C (Oral) TMIN: 36.7 C (Oral) TMAX: 36.8 C (Oral) HR: 96 RR: 16 BP: 106/73 SpO2: 97% Physical Exam Chart reviewed, patient examined. Patient is alert and oriented x3, resting in bed on Dilaudid GERIATRIC CARE MANAGER pump. No c/o VD. Reports improving nausea. [...] mL, IR Drain, q8h Continuous: (1) HYDROmorphone GERIATRIC CARE MANAGER in 50mL NS 10 mg 10 mg [...] Emili Clark RN on 10/03/2022 08:58 AM [facility] [id number] Consult note Chief complaint anxiety History of present illness 31-year-old female admitted with a history of cervical cancer status post chemoradiation as well as a history of obstructive uropathy states longstanding anxiety. I evaluated this patient in the presence of socially responsible investment adviser Tasha Wallace. Patient states that she does [...] CLOTILDE SHAY MD on 10/03/2022 10:14 AM [facility] [id number] Note IR Procedure Record Summary Primary Physician: JANET FLOREZ MD Finalized Date/Time: 10/03/22 09:10:23 Pt. Name: ANTONELLALALY /Sex: 1990 Female Med Rec #: [id number] Physician: FLIP MARTIN MD Financial #: [id number] Pt. Type: I Room/Bed: [facility]/A Admit/Disch: 09/30/22 10:04:48 - Institution: Allergies identified in patient's electronic medical record at time of printing on 10/03/22 Entry 1 Substance penicillin Reaction Type Allergy Last Modified By: JAMAL Samuel 02/03/21 17:13:24 Case Attendance- IR Entry 1 Entry 2 Entry 3 Case Attendee JANET FLOREZ MDhbPatti ng Hannah RN Orchestrator Role Performed Primary Surgeon Scrub Technologist Procedure Nurse Details Time In 10/02/22 14:24:00 10/02/22 14:24:00 10/02/22 14:24:00 Time Out 10/02/22 14:50:00 10/02/22 14:55:00 10/02/22 14:55:00 Procedure/Preference IR Neph Cath-Neph IR Neph Cath-Neph IR Neph Cath-Neph Card Ureter W/Guide Left SN Ureter W/Guide Left SN Ureter W/Guide Left SN Last Modified By: Padmini Fairchild Rad Padmini Fairchild Rad Padmini Fairchild Orchestrator 10/02/22 14:53:31 Tech 10/02/22 14:53:31 Tech 10/02/22 14:53:31 Entry 4 Case Attendee Padmini Fairchild Orchestrator Role Performed Circulating Technologist Details Time In 10/02/22 14:24:00 Time Out 10/02/22 14:55:00 Procedure/Preference IR Neph Cath-Neph Card Ureter W/Guide Left SN Last Modified By: Padmini Fairchild Orchestrator 10/02/22 14:53:31 Radiology Procedures- IR Entry 1 Procedure/Preference IR Neph Cath-Neph Actual Procedure IR Neph-ureter w guide Card Ureter W/Guide Left SN left SN Primary Procedure Yes Primary Surgeon JANET FLOREZ MD Anesthesia/Sedation Local, IV Sedation Type Additional Procedure Times Start 10/02/22 14:30:00 Stop 10/02/22 14:50:00 Specialty Service SN Radiology Procedure EBL 1 mL Last Modified By: Padmini Fairchild Orchestrator 10/02/22 15:00:02 Radiology Procedure Details - IR [...] cervical cancer Last Modified By: Padmini Fairchild Orchestrator 10/02/22 14:31:54 Medication Administration- IR Entry 1 [...] than Primary Last Modified By: Padmini Fairchild [employer] 10/02/22 14:31:36 Immediate Post Procedure Note - IR Signed By: JANET FLOREZ MD 10/02/22 14:51 Allergy Information- IR Entry 1 Allergies Reviewed? Yes Allergies Reviewed Medical Record With Last Modified By: Padmini Fairchild [employer] 10/02/22 14:25:11 Radiology Protocols/Time Out- IR Entry [...] Time Out Patti Ching Relevant images and Orchestrator, Marisa Gastelum results are properly RN, Padmini Fairchild labeled and Orchestrator appropriately displayed, Alcohol based prep dry Instrument Sterility Team Members Patit Ching Verifying Sterility Orchestrator Procedure IR Neph Cath-Neph Ureter W/Guide Left SN Last Modified By: Padmini Fairchild Orchestrator 10/02/22 14:30:43 Skin Prep- IR Entry 1 Procedure IR Neph Cath-Neph Ureter W/Guide Left SN Skin Prep Prep Area Flank Side Left By Patti Ching Prep Agents Betadine Scrub Orchestrator Hair Removal Method N/A Last Modified By: Padmini Fairchild Orchestrator 10/02/22 14:29:37 Patient Positioning- IR Entry 1 Procedure IR Neph Cath-Neph Body Position OP Prone Ureter W/Guide Left SN Feet Uncrossed? Yes Pressure Points n/a Checked Last Modified By: Padmini Fairchild Orchestrator 10/02/22 14:29:49 Radiology Procedure Plan - IR [...] Radiology - Action Plan Outcomes Met? Yes Senior Network Engineer Marisa Gastelum RN Completing Procedure Plan Last Modified By: Padmini Fairchild [employer] 10/02/22 14:31:10 Case Comments Finalized By: Ana Tipton Document Signatures Signed By: Padmini Fairchild [employer] 10/02/22 15:02 Ana Tipton 10/03/22 09:10 [id number] Infectious disease Progress note Date of Service 10/03/2022 Objective Vitals and Measurements T: 36.7 C (Oral) TMIN: 36.7 C (Oral) TMAX: 36.8 C (Oral) HR: 96 RR: 16 BP: 106/73 SpO2: 97% Physical Exam Chart reviewed, patient examined. Patient is alert and oriented x3, resting in bed on Dilaudid GERIATRIC CARE MANAGER pump. No c/o VD. Reports improving nausea. [...] mL, IR Drain, q8h Continuous: (1) HYDROmorphone GERIATRIC CARE MANAGER in 50mL NS 10 mg 10 mg [...] Emili Clark RN on 10/03/2022 08:58 AM [facility] [id number] Note Date of Service 10/03/2022 Chief Complaint Abdominal pain Difficulty urinating Subjective Patient reports her acute pain has improved with the Dilaudid GERIATRIC CARE MANAGER however her chronic pain at the nephrostomy [...] mL, IR Drain, q8h Continuous: (1) HYDROmorphone GERIATRIC CARE MANAGER in 50mL NS 10 mg 10 mg [...] 1. Successful placement of a new 8 Afghan 26 cm left nephroureteral stent. 2. Left [...] for NM Kidney scan. Will discuss discontinuing GERIATRIC CARE MANAGER Dilaudid with Dr. Hilliard today. Digitally Signed by PRIMO CANELA MD on 10/03/2022 06:57 AM [facility] [id number] Note ORIGINAL PROCEDURE: INTRODUCTION-NEPHRO TUBE MODERATE CONSCIOUS [...] the nurse. The patient has an active GERIATRIC CARE MANAGER pump present. Very generous lidocaine was utilized FLUOROSCOPY DOSE AND TYPE OR TIME AND EXPOSURES: Fluoroscopy time 0.8min Total DLP: 5 mGy Number of images: 2 DESCRIPTION OF PROCEDURE: Informed consent was obtained after a detailed explanation of the procedure including risks, benefits, and alternatives. Payne protocol was observed. Sterile gowns, masks, hats [...] catheter was readily removed. A new 8 Afghan 26 cm nephroureteral stent was placed. Its [...] 1. Successful placement of a new 8 Afghan 26 cm left nephroureteral stent. 2. Left nephrostogram and antegrade pyelography Interpreted by: Janet Florez Preliminary Report By: Janet Florez Electronically signed By Janet Florez Dictated Date: 10/02/2022 7:44:31 PM Prelim Date: 10/02/2022 7:49:25 PM Sign Date: 10/02/2022 7:49:25 PM Ordering Provider: [facility]11-30-2022 Note Date of Service 10/02/2022 Chief Complaint Abdominal pain Difficulty urinating Subjective Patient seen and examined. She is upset this morning, she was not given her diet order in time and eventually was too upset to eat after it was brought to her. Her pain has improved significantly with the GERIATRIC CARE MANAGER Dilaudid. She denies nausea, vomiting, fever, chills, [...] mL, IR Drain, Daily Continuous: (1) HYDROmorphone GERIATRIC CARE MANAGER in 50mL NS 10 mg 10 mg [...] pending, for NM Kidney scan, NPO at [place] for nephrostomy tube exchange, resume diet after. Will discuss discontinuing GERIATRIC CARE MANAGER Dilaudid after nephrostomy exchange. Digitally Signed by PRIMO CANELA MD on 10/02/2022 06:39 AM [facility] [id number] Note ORIGINAL PROCEDURE: INTRODUCTION-NEPHRO TUBE MODERATE CONSCIOUS [...] the nurse. The patient has an active GERIATRIC CARE MANAGER pump present. Very generous lidocaine was utilized FLUOROSCOPY DOSE AND TYPE OR TIME AND EXPOSURES: Fluoroscopy time 0.8min Total DLP: 5 mGy Number of images: 2 DESCRIPTION OF PROCEDURE: Informed consent was obtained after a detailed explanation of the procedure including risks, benefits, and alternatives. Payne protocol was observed. Sterile gowns, masks, hats [...] catheter was readily removed. A new 8 Afghan 26 cm nephroureteral stent was placed. Its [...] 1. Successful placement of a new 8 Afghan 26 cm left nephroureteral stent. 2. Left nephrostogram and antegrade pyelography Interpreted by: Janet Florez Preliminary Report By: Janet Florez Electronically signed By Janet Florez Dictated Date: 10/02/2022 7:44:31 PM Prelim Date: 10/02/2022 7:49:25 PM Sign Date: 10/02/2022 7:49:25 PM Ordering Provider: [facility]11-30-2022 Note Date of Service 10/02/2022 Chief Complaint Abdominal pain Difficulty urinating Subjective Patient seen and examined. She is upset this morning, she was not given her diet order in time and eventually was too upset to eat after it was brought to her. Her pain has improved significantly with the GERIATRIC CARE MANAGER Dilaudid. She denies nausea, vomiting, fever, chills, [...] mL, IR Drain, Daily Continuous: (1) HYDROmorphone GERIATRIC CARE MANAGER in 50mL NS 10 mg 10 mg [...] Activity: Ambulate >> Diet: Regular, NPO at [place] (CLD with medications) >> IVF: NS 90 [...] pending, for NM Kidney scan, NPO at [place] for nephrostomy tube exchange, resume diet after. Will discuss discontinuing GERIATRIC CARE MANAGER Dilaudid after nephrostomy exchange. Digitally Signed by PRIMO CANELA MD on 10/02/2022 06:39 AM [facility] [id number] Infectious disease Progress note Date of Service 10/02/2022 Objective Vitals and Measurements T: 36.4 C (Oral) TMIN: 36.4 C (Oral) TMAX: 36.9 C (Oral) HR: 75 RR: 18 BP: 115/86 SpO2: 100% Physical Exam Chart reviewed, patient examined. Patient is alert and oriented x3, rather flat in affect, resting in bed on Dilaudid GERIATRIC CARE MANAGER pump. No c/o VD. Reports ongoing nausea, requesting Ativan and Zofran. Reports generalized fatigue, did not sleep well overnight. Reports continued bilateral flank as well as abdominal pain, although does report improvement with GERIATRIC CARE MANAGER. No other new complaints this AM, bedside [...] mL, IR Drain, Daily Continuous: (1) HYDROmorphone GERIATRIC CARE MANAGER in 50mL NS 10 mg 10 mg [...] Emili Clark RN on 10/02/2022 08:54 AM [facility] [id number] Infectious disease Progress note Date of Service 10/02/2022 Objective Vitals and Measurements T: 36.4 C (Oral) TMIN: 36.4 C (Oral) TMAX: 36.9 C (Oral) HR: 75 RR: 18 BP: 115/86 SpO2: 100% Physical Exam Chart reviewed, patient examined. Patient is alert and oriented x3, rather flat in affect, resting in bed on Dilaudid GERIATRIC CARE MANAGER pump. No c/o VD. Reports ongoing nausea, requesting Ativan and Zofran. Reports generalized fatigue, did not sleep well overnight. Reports continued bilateral flank as well as abdominal pain, although does report improvement with GERIATRIC CARE MANAGER. No other new complaints this AM, bedside [...] mL, IR Drain, Daily Continuous: (1) HYDROmorphone GERIATRIC CARE MANAGER in 50mL NS 10 mg 10 mg [...] Emili Clark RN on 10/02/2022 08:54 AM [facility] [id number] Note Date of Service 10/02/2022 Chief Complaint Abdominal pain Difficulty urinating Subjective Patient seen and examined. She is upset this morning, she was not given her diet order in time and eventually was too upset to eat after it was brought to her. Her pain has improved significantly with the GERIATRIC CARE MANAGER Dilaudid. She denies nausea, vomiting, fever, chills, [...] mL, IR Drain, Daily Continuous: (1) HYDROmorphone GERIATRIC CARE MANAGER in 50mL NS 10 mg 10 mg [...] Activity: Ambulate >> Diet: Regular, NPO at [place] (CLD with medications) >> IVF: NS 90 [...] pending, for NM Kidney scan, NPO at [place] for nephrostomy tube exchange, resume diet after. Will discuss discontinuing GERIATRIC CARE MANAGER Dilaudid after nephrostomy exchange. Digitally Signed by PRIMO CANELA MD on 10/02/2022 06:39 AM [facility] [id number] Infectious disease Consult note Date of Service [...] faecalis Nuclear medicine renal scan is pending MANAGER OF HOSPITAL/onc board and following Discussed with patient, she [...] 100 mg= 1 cap(s), Oral, BID Dilaudid GERIATRIC CARE MANAGER (0.2mg/1 mL) 10 mg, 10 mg= 50 [...] RUVALCABA BA, MD on 10/01/2022 11:23 AM [facility] HospitalGlgmaqzt48-83-1971 Infectious disease Consult note Date of Service [...] faecalis Nuclear medicine renal scan is pending MANAGER OF HOSPITAL/onc board and following Discussed with patient, she [...] 100 mg= 1 cap(s), Oral, BID Dilaudid GERIATRIC CARE MANAGER (0.2mg/1 mL) 10 mg, 10 mg= 50 [...] Digitally Signed by Brenda López Scribe on 10/01/2022 10:58 AM Digitally Signed by MARGOTH RUVALCABA BA, MD on 10/01/2022 11:23 AM [facility] [id number] Note System generated consult for an establish left nephrostomy tube. Tube is secured with a StayFIX securement device. Patient is scheduled tomorrow for tube exchange. Digitally Signed by Rhea Pruett RN, Skin Team on 10/01/2022 10:01 AM [facility] [id number] Note Date of Service 10/01/2022 Chief Complaint [...] PRIMO CANELA MD on 10/01/2022 06:59 AM [facility] [id number] History and physical note Date of Service [...] chest pain, dizziness, vaginal bleeding, vaginal discharge. 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 Amenorrheic since initiation of Chemoradiation. Denies mammogram ever. Colonoscopy in 2019. Denies history of STDs. Not sexually active. Family History Mother with breast cancer Sister with cervical cancer Grandmother with cervical cancer Aunts with cervical cancer Cousins with cervical cancer ONCOLOGY HISTORY: - 04/04/2020: CT scan abdomen and pelvis. [facility]. Thickened cervical wall with involvementof the lower [...] underwent for intracavitary brachii therapy applications with hwfk-thgo-gjrs iridium 192afterloading device utilizing a tandem and [...] Start Date End Date Elapsed Days IMRT MANAGER OF HOSPITAL Pelvis 6X 180 4,500 04/26/2020 06/02/2020 37 3D PM Bst 18X 180 540 06/05/2020 06/07/2020 2 GENETIC TESTING: - Patient had genetic testing sent through [facility]. No reportable somatic or germline pathogenic [...] PRIMO CANELA MD on 09/30/2022 08:19 PM [facility] [id number] Note Date of Service 10/01/2022 Chief Complaint [...] PRIMO CANELA MD on 10/01/2022 06:59 AM [facility] [id number] History and physical note Date of Service [...] chest pain, dizziness, vaginal bleeding, vaginal discharge. 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 Amenorrheic since initiation of Chemoradiation. Denies mammogram ever. Colonoscopy in 2019. Denies history of STDs. Not sexually active. Family History Mother with breast cancer Sister with cervical cancer Grandmother with cervical cancer Aunts with cervical cancer Cousins with cervical cancer ONCOLOGY HISTORY: - 04/04/2020: CT scan abdomen and pelvis. [facility]. Thickened cervical wall with involvementof the lower [...] underwent for intracavitary brachii therapy applications with pdez-rayx-xqxd iridium 192afterloading device utilizing a tandem and [...] Start Date End Date Elapsed Days IMRT MANAGER OF HOSPITAL Pelvis 6X 180 4,500 04/26/2020 06/02/2020 37 3D PM Bst 18X 180 540 06/05/2020 06/07/2020 2 GENETIC TESTING: - [facility] No reportable somatic or germline [...] PRIMO CANELA MD on 09/30/2022 08:19 PM [facility] [id number] Evaluation + Plan noteExtracted from: Title:Gynecology Oncology [...] Date:01/01/2023 11:30:00 AM Scheduled Provider:FLIP MARTIN MD Location:MANAGER OF HOSPITAL ONC Appointment Type:SO OV Follow Up Future [...] IR Neph Cath-Neph Ureter W/Guide Left 06/02/23 [facility] 10-14-2022 Hospital Discharge instructions Patient Education 08/16/2022 13:25:49 Radiology- Nephrostomy Tube Insertion(CUSTOM) ESPARTO Nephrostomy Tube Insertion Discharge Instructions Interventional Radiology [facility] Imaging Services [address] [place] [address] The procedure that you had done today [...] mayexperience the feeling of needing to urinate. Vypb-dax-yvbbspc pain medication should be used for pain [...] instruction below: 8:00 am- 5:00 pm call [phone] After 5:00 pm call [phone] After 24 hours, contact the physician who ordered this procedure for you. Special Instructions: Follow Up Care 08/08/2022 16:44:45 With:FLIP MARTIN MD Address: [address] [place] [address] [place] [address]- [phone] When: Unknown Comments:call office for a follow up appointment even tho you have 1 for next year With:DOMINIQUE MARY MD Address: [address] [place] [address] [place] [address]- When:1-2 days Comments:Accepting new patients With:PRIYANK ROWLAND MD Address: [address] [place] [address]- When:1-2 days Comments:Accepting new patients With:RYAN POTTS APRN-[facility] Address: [address] [facility] [address] [place] [address]- When:1-2 days Comments:Accepting new patients [facility] 10-14-2022 Note Discharge Instructions Thank you for allowing [facility] to assist you with your healthcare needs. [...] Up 01/01/2023 11:30 AM FLIP CORRALES MD [facility] [address] [place] [address] Follow Up Appointments Follow Up with FLIP MARTIN MD When Why: call office for a follow up appointment even tho you have 1 for next year Where: [address] [facility] [place] [phone] Follow Up with DOMINIQUE MARY MD When Within 1-2 days Why: Accepting new patients Where: [address] [place] [address]- Follow Up with PRIYANK ROWLAND MD When Within 1-2 days Why: Accepting new patients Where: [address] [place] [address]- Follow Up with RYAN POTTS When Within 1-2 days Why: Accepting new patients Where: [address] [place] [address]- The Following Activity and Diet Have Been [...] Muscle spasm Duration: 10 Days Pickup at [facility]79 New HYDROmorphone (Dilaudid 2 mg oral tablet) 1 tab(s) by mouth Every 4 hours as needed for as needed for pain Cancer related pain History of radiation therapy Duration: 5 Days Pickup at [facility] 172 New lidocaine topical (lidocaine 5% topical patch) 1 patch(es) Topical Once a day remove patches after 12 hours Pickup at [facility] 172 New naproxen (naproxen 250 mg oral tablet) 1 tab(s) by mouth Two (2) times a day Pickup at [facility] 172 New nitrofurantoin (Macrobid 100 mg oral capsule) 1 cap by mouth Two (2) times a day Duration: 3 Days Take with food Pickup at [facility] 172 New promethazine (promethazine 12.5 mg rectal suppository) 1 suppository(ies) in the rectum Every 6 hours as needed for for nausea/vomiting Pickup at [facility] 172 Changed acetaminophen (Tylenol 325 mg oral capsule) 650 Milligram by mouth Every 4 hours as needed for Pain, scale 1-3 Changed acetaminophen (Tylenol 325 mg oral tablet) 2 tab(s) by mouth Every 4 hours as needed for for pain Duration: 7 Days Pickup at [facility] 172 Unchanged LORazepam (Ativan 1 mg oral [...] Milliliter IR Drain Every day Pharmacy Information [facility]24: [address] [place], [place] [id number] [phone] What How Much When Why Comments Stop [...] medication providers or retail pharmacies. Education Materials ESPARTO Nephrostomy Tube Insertion Discharge Instructions Interventional Radiology [facility] [address] [place] [address] The procedure that you had done today [...] mayexperience the feeling of needing to urinate. Byoz-tcq-gqcvnfl pain medication should be used for pain [...] instruction below: 8:00 am- 5:00 pm call [phone] After 5:00 pm call [phone] After 24 hours, contact the physician who ordered this procedure for you. Special Instructions: Additional Information VACCINATE! IT SAVES LIVES! Members of the community who have not yet received the COVID-19 vaccine and would like to receive it can visit one of [facility] vaccine clinics. There are many vaccine clinic locations within the [facility]. For locations and available times, please visit [email or web address] It is important to note that some COVID mobile vaccine clinics are held outdoors and may be canceled in rainy or stormy conditions. To learn more about pediatric vaccinations (ages 5-11), we invite you to visit the [facility] webpage. [email or web address]/[email or web address] [email or web address].htmlTo learn more about the COVID-19 vaccine, we invite you to visit the [facility] website for a list of frequently asked questions. [email or web address] _[email or web address].pdf [facility] Patient Portal Access Instructions: Stay connected with your healthcare team and access your personal medical information anytime with the [facility] Patient Portal.If you would like a full copy of your medical records, please contact the [facility] Medical Records Department, Friday through Friday between 8a.m. and 4:30p.m. Please follow the directions below to access the portal: 1.Access the email account you provided upon registration to the hospital.2.Look for an invitation email from [facility].3.Open the email and access the invitation link: Accept Invitation to [facility]4.Fill in the required quintero to create your account. Sign into [email or web address] with your username and password that you [...] you will allow to register on the [facility] Patient Portal for access to your information. You can also access the [facility] Patient Portal on the [employer]. Simply click on Health Records under Livemap and then click on the [employer] logo. HOW TO SAFELY DISPOSE OF PRESCRIPTION [...] Call your local pharmacy or go to [email or web address] to find one close to you.3.Make use of household items: Use cat litter or old coffee grounds to dispose medications if other options arenot available. Mix your drugs with these household products, seal them in an airtight container andthrow it into the garbage. Call [facility]: [phone] to be sure your drugs can be [...] aware that I should contact my doctor. 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 I did explain to Dr. Fitzgerald since this is a chronic pain, we would not manage in the outpatient setting. Patient's OARRS re port was reviewed. Digitally Signed by LESIA DENIS on 08/16/2022 01:17 PM [facility] HospitalUadoulow23-81-1315 Note Date of Service 08/16/2022 Chief Complaint [...] Converses easily. Abdom: Soft, nontender, nondistended. +BS n6henwpyrlw Extrem: no edema, no erythema, nontender Weight [...] MD Digitally Signed by CLOTILDE GARCIA MD [facility] HospitalKpaqfqbd79-28-7565 Note Date of Service 08/15/2022 Chief Complaint [...] Converses easily. Abdom: Soft, nontender, nondistended. +BS z4bxxtiihgk Extrem: no edema, no erythema, nontender Weight [...] ALANNA SCANLON DO on 08/15/2022 08:02 AM [facility] HospitalGkmhlbsf64-59-2999 Palliative care Consult note Date of Service [...] Full Code, Constant Order Digitally Signed by ELSIA DNEIS on 08/15/2022 03:37 PM [facility] HospitalEcfoolcw08-83-6928 Note Date of Service 08/15/2022 Chief Complaint [...] Converses easily. Abdom: Soft, nontender, nondistended. +BS g2ukrudutwc Extrem: no edema, no erythema, nontender Weight [...] ALANNA SCANLON DO on 08/15/2022 08:02 AM [facility] HospitalZweztyjl99-90-8074 Note Date of Service 08/15/2022 Chief Complaint [...] Converses easily. Abdom: Soft, nontender, nondistended. +BS d6mvlsunpzh Extrem: no edema, no erythema, nontender Weight [...] ALANNA SCANLON DO on 08/15/2022 08:02 AM [facility] HospitalAzrtygpx62-61-4104 Note Date of Service 08/15/2022 Chief Complaint [...] Converses easily. Abdom: Soft, nontender, nondistended. +BS n7evuihxwpz Extrem: no edema, no erythema, nontender Weight [...] ALANNA SCANLON DO on 08/15/2022 08:02 AM [facility] HospitalFzczzmdh00-00-3960 Note Date of Service 08/15/2022 Chief Complaint [...] Converses easily. Abdom: Soft, nontender, nondistended. +BS v0qncnbnnns Extrem: no edema, no erythema, nontender Weight [...] ALANNA SCANLON DO on 08/15/2022 08:02 AM [facility] HospitalYnuyjxad04-47-1635 Nurse Progress note Patient refused colace. Stated It's been giving heartburn for the last 3 days. Digitally Signed by Cecilia Egnlish LPN on 08/14/2022 08:22 PM [facility] HospitalFqackshh65-68-9326 Nurse Progress note Patient refused colace. Stated It's been giving heartburn for the last 3 days. Digitally Signed by Cecilia English LPN on 08/14/2022 08:22 PM [facility] HospitalMhmvochc34-41-4365 Note Date of Service 08/14/2022 Chief Complaint [...] Converses easily. Abdom: Soft, nontender, nondistended. +BS p3toumsgmos. L nephrostomy fluid yellow tinged. Extrem: no [...] ALANNA SCANLON DO on 08/14/2022 06:50 AM [facility] HospitalOhxhbvnl53-00-2452 Note IR Procedure Record Summary Primary Physician: VIRAL MANUEL MD Finalized Date/Time: 08/14/22 14:10:33 Pt. Name: LALY NAVAS/Sex: 1990 Female Med Rec #: [id number] Physician: FLIP MARTIN MD Financial #: [id number] Pt. Type: I Room/Bed: [facility]/A Admit/Disch: 08/08/22 16:43:27 - Institution: Allergies identified in patient's electronic medical record at time of printing on 08/14/22 Entry 1 Entry 2 Substance codeine penicillin Reaction Type Allergy Allergy Last Modified By: Cesar Hyman RN, RN Evan 02/03/21 04/12/20 15:04:17 17:13:24 Case Attendance- IR Entry 1 Entry 2 Entry 3 Case Attendee VIRAL MANUEL MD [facility], [facility] JAMAL Andres Role Performed Primary Surgeon Scrub [...] Sam Junior Relevant images and A, JAMAL Cuellar results are properly labeled and appropriately displayed, Alcohol based prep dry, Double verification of sterility indicators complete Instrument Sterility Team Members VIRAL MANUEL MD, Verifying Sterility Sam Junior A Procedure IR Neph Cath-Neph Ureter W/Guide Left SN Last Modified By: JAMAL Cuellar 08/14/22 14:10:26 Skin Prep- IR Entry 1 Procedure IR Neph Cath-Neph Ureter W/Guide Left SN Skin Prep Prep Area Flank Side Left By Sam Junior Prep Agents Betadine Solution Hair Removal Method [...] Radiology - Action Plan Outcomes Met? Yes Senior Network Engineer Lexi Marcano RN Completing Procedure Plan Last Modified By: Lexi Marcano RN 08/14/22 12:53:32 Case Comments Finalized By: JAMAL Cuellar Document Signatures Signed By: Sam Junior 08/14/22 13:21 Lexi Marcano RN 08/14/22 12:56 JAMAL Cuellar 08/14/22 14:10 [facility] HospitalWcyjdhoj79-95-8075 Note Date of Service 08/14/2022 Chief Complaint [...] Converses easily. Abdom: Soft, nontender, nondistended. +BS k0rogcphutt. L nephrostomy fluid yellow tinged. Extrem: no [...] ALANNA SCANLON DO on 08/14/2022 06:50 AM [facility] HospitalAdngspfq00-21-2715 Note Date of Service 08/14/2022 Chief Complaint [...] Converses easily. Abdom: Soft, nontender, nondistended. +BS d5xbfvfkuga. L nephrostomy fluid yellow tinged. Extrem: no [...] ALANNA SCANLON DO on 08/14/2022 06:50 AM [facility] HospitalPtivemmc93-80-0128 Note Date of Service 08/13/2022 Chief Complaint [...] Converses easily. Abdom: Soft, nontender, nondistended. +BS l6gylicrteo Extrem: no edema, no erythema, nontender Weight [...] ALANNA SCANLON DO on 08/13/2022 07:00 AM [facility] HospitalPcdsfbik37-17-7358 Note Date of Service 08/13/2022 Chief Complaint [...] Converses easily. Abdom: Soft, nontender, nondistended. +BS y7pczlytsun Extrem: no edema, no erythema, nontender Weight [...] ALANNA SCANLON DO on 08/13/2022 07:00 AM [facility] HospitalGqqzwbhf28-36-5232 Note ORIGINAL EXAMINATION: THREE XRAY VIEWS OF [...] Sign Date: 08/12/2022 11:43:25 PM Ordering Provider: [facility]10-10-2022 Note ORIGINAL EXAMINATION: THREE XRAY VIEWS [...] Sign Date: 08/12/2022 11:43:25 PM Ordering Provider: [facility]10-10-2022 Note Date of Service 08/12/2022 Chief Complaint [...] Converses easily. Abdom: Soft, nontender, nondistended. +BS y7nbzpyrgck Extrem: no edema, no erythema, nontender Weight [...] ALANNA SCANLON DO on 08/12/2022 06:50 AM [facility] HospitalAggnlzfw05-51-0241 Note Date of Service 08/12/2022 Chief Complaint [...] Converses easily. Abdom: Soft, nontender, nondistended. +BS l4jjfxrnnny Extrem: no edema, no erythema, nontender Weight [...] ALANNA SCANLON DO on 08/12/2022 06:50 AM [facility] HospitalQpkplpzg02-28-0964 Note Date of Service 08/10/22 Chief Complaint [...] MARIA GODOY DO on 08/10/2022 07:21 AM [facility] HospitalJrzczcuc97-62-3622 Note Date of Service 08/09/2022 Chief Complaint [...] use. Converses easily. Abdom: Soft, nondistended. +BS i6qpkvxvrtt Extrem: no edema, no erythema, nontender Weight [...] -2019, Dr. Martin 4. Anxiety - consider psychotherapist social worker consult - declined counseling 5. [...] scale 7-10, 0, 08/08/22::00 EDT HYDROmorphone, Start: 08/08/22 EDT, Dose = 0.5 mg, = 0.5 mL, IV Push, q2h, PRN, Pain, scale 4-6, 0, 08/08/22 EDT melatonin, Start: 08/08/22: EDT, Dose = 3 mg, = 1 tab(s), Oral, qHS, PRN, as needed for insomnia, 0, 08/08/22: EDT ondansetron, Start: 08/08/22 18:00:00 EDT, Dose = 4 mg, = 2 mL, IV Push, q4h, 0, 08/08/22 EDT oxyCODONE, Start: 08/08/22 EDT, Dose = 5 mg, = 1 tab(s), Oral, q4h, PRN, Pain, scale 4-6, 08/08/22: EDT oxyCODONE, Start: 08/08/22 EDT, Dose = 10 mg, = 2 tab(s), Oral, q4h, PRN, Pain, scale 7-10, 08/08/22 EDT pantoprazole, Start: 08/08/22:: EDT, Dose = [...] ALANNA SCANLON DO on 08/09/2022 07:30 AM [facility] HospitalMlhaxrvp29-93-2306 History and physical note Result type: History and Physical Result date: August 08, 2022 15:00 EDT Result status: Auth (Verified) Result title: History and Physical Performed by: ALANNA SCANLON DO on August 08, 2022 12:25 EDT Verified by: ALANNA SCANLON DO on August 08, 2022 20:00 EDT Encounter info: [id number], MANAGER OF HOSPITAL ONC, Office, 08/08/2022 - * Final Report [...] 31 Years old woman who presents from [facility] (drove self) for back pain, likely UTI. [...] use. Converses easily. Abdom: Soft, nondistended. +BS n0ducvlrqgf. Tenderness to palpation in the left lower [...] ALANNA SCANLON DO on 08/09/2022 11:59 AM [facility] HospitalQvmgsdny59-20-8514 Note Date of Service 08/11/2022 Chief Complaint [...] FARZANA CAST DO on 08/11/2022 07:48 AM [facility] HospitalGubxrftn09-45-1117 Note Date of Service 08/11/2022 Chief Complaint [...] FARZANA CAST DO on 08/11/2022 07:48 AM [facility] HospitalOzpzdedf34-75-8091 Note Date of Service 08/10/22 Chief Complaint [...] on 08/10/2022 07:10 AM Digitally Signed by WALTLUZ MARIA on 08/10/2022 07:21 AM [facility] HospitalXosnvwnk91-84-3035 Note Date of Service 08/10/22 Chief Complaint [...] MARIA GODOY DO on 08/10/2022 07:21 AM [facility] HospitalGuimsshf84-71-0385 Note Date of Service 08/09/2022 Chief Complaint [...] use. Converses easily. Abdom: Soft, nondistended. +BS z4uzzchsnaq Extrem: no edema, no erythema, nontender Weight [...] -2019, Dr. Martin 4. Anxiety - consider psychotherapist social worker consult - declined counseling 5. [...] prophylaxis - SCDs Orders: diphenhydrAMINE, Start: 08/08/22 17:: EDT, Dose = 25 mg, = 1 tab(s), Oral, qHS, PRN, as needed for insomnia, 08/08/22 17:26:00 EDT docusate, Start: 08/08/22 20:00:00 EDT, Dose = 100 mg, = 1 cap(s), Oral, BID, 08/08/22 17:: EDT famotidine, Start: 08/08/22 17:: EDT, Dose = 20 mg, = 1 tab(s), Oral, BID, PRN, Reflux, 0, 08/08/22 17::00 EDT HYDROmorphone, Start: 08/08/22 17:: EDT, Dose = 1 mg, = 1 mL, IV Push, q2h, PRN, Pain, scale 7-10, 0, 08/08/22 17:26:00 EDT HYDROmorphone, Start: 08/08/22 17::00 EDT, Dose = 0.5 mg, = 0.5 [...] ALANNA SCANLON DO on 08/09/2022 07:30 AM [facility] HospitalMpmrynob81-26-6194 Note System generated consult secondary to established nephrostomy tube. Appliance intact with dry dressing; draining well. Patient states no issues. Digitally Signed by JAMAL Bach February on 08/09/2022 12:02 PM [facility] HospitalBwzzuvtb24-32-4374 Note ORIGINAL EXAMINATION: ULTRASOUND OF THE KIDNEYS [...] Hernandez Rodrigez MD Preliminary Report By: Dora Gonzaleselen Electronically signed By Hernandez Rodrigez MD Dictated Date: 08/09/2022 3:41:45 AM Prelim Date: 08/09/2022 3:48:30 AM Sign Date: 08/09/2022 8:05:44 AM Ordering Provider: DILLAN [facility]10-07-2022 History and physical note Result type: History and Physical Result date: August 08, 2022 15:00 EDT Result status: Auth (Verified) Result title: History and Physical Performed by: ALANNA SCANLON DO on August 08, 2022 12:25 EDT Verified by: ALANNA SCANLON DO on August 08, 2022 20:00 EDT Encounter info: [id number], MANAGER OF HOSPITAL ONC, Office, 08/08/2022 - * Final Report [...] 31 [facility]. Originally [...] use. Converses easily. Abdom: Soft, nondistended. +BS q2nqyfxsfli. Tenderness to palpation in the left lower [...] ALANNA SCANLON DO on 08/09/2022 11:59 AM [facility] HospitalLtfbenev22-57-4648 Note Date of Service 08/09/2022 Chief Complaint [...] use. Converses easily. Abdom: Soft, nondistended. +BS c2goqvhnmqp Extrem: no edema, no erythema, nontender Weight [...] time and monitor 2. History of chemotherapy -2020, Dr. Martin 3. History of radiation therapy -2019, Dr. Martin 4. Anxiety - consider psychotherapist social worker consult - declined counseling 5. [...] Oral, q4h, PRN, Pain, scale 7-10, 08/08/22 17::00 EDT pantoprazole, Start: 08/08/22 17:: EDT, Dose = 40 mg, IV Push, qDay, PRN, Reflux, mL/hr, Infuseover: 2 minute(s), 0, 08/08/22 17::00 EDT promethazine, Start: 08/08/22 17::00 EDT, Dose = 12.5 mg, = 1 tab(s), Oral, q6h, PRN, Nausea/Vomiting, 08/08/22 17::00 EDT Ambulate Blood Glucose Call Parameter Blood [...] ALANNA SCANLON DO on 08/09/2022 07:30 AM [facility] HospitalYndtgmvi74-63-1657 Note ORIGINAL EXAMINATION: ULTRASOUND OF THE KIDNEYS [...] Sign Date: 08/09/2022 8:05:44 AM Ordering Provider: [facility]10-06-2022 Summary of episode note LALY NAVAS :1990 [...] Care Team Attending Physician - BRITTNI LU APRN-ELECTRIC MOTOR TESTER Primary Care Physician - FLIP MARTIN MD Vitals Temperature (Oral) 36.6 C Heart Rate 71 Respiratory Rate 18 Blood Pressure 126/87(Left Arm) What to do next Scheduled Follow-Up Appointments Appointment Type When With Where Contact InformationIR Neph Cath-Neph Ureter W/Guide Left 08/15/2022 01:00 PM EDT IR SO OV Follow Up 01/01/2023 11:30 AM FLIP CORRALES MD [facility] [address] [place] [phone] Medications What How Much When Why Instructions [...] - 7.1 10^3/mcL BMP w/ Ionized Calcium ([facility]) (08/08/2022) Glucose Level - 97 mg/dL [...] to receive it can visit one of [facility] vaccine clinics. There are many vaccine clinic locations within the [facility]. For locations and available times, please visit [email or web address]. It is important to note that some COVID mobile vaccine clinics are held outdoors and may be canceled in rainy orstormy conditions. To learn more about pediatric vaccinations (ages 5-11), we invite you to visit the [facility] webpage. https://www.[email or web address]/pages/7526-Vaixj-Pjkkrnuqzul-Hciphmmmxw-Fkgba-Rgs stions.htmlTo learn more about the COVID-19 vaccine, we invite you to visit the [facility] website for a list of frequently asked questions. [email or web address]/Rulnajlu-vqr-Tykclskx/smrjy-Shxchqi-Urlwojlcqx _Asked-Questions.pdf [facility] Patient Portal Access Instructions: Stay connected with your healthcare team and access your personal medical information anytime with the [facility] Patient Portal.If you would like a full copy of your medical records, please contact the [facility] Medical Records Department, Friday through Friday between 8a.m. and 4:30p.m. Please follow the directions below to access the portal: 1.Access the email account you provided upon registration to the hospital.2.Look for an invitation email from [facility].3.Open the email and access the invitation link: Accept Invitation to [facility]4.Fill in the required quintero to create your account. Sign into [email or web address] with your username and password that you [...] you will allow to register on the [facility] Patient Portal for access to your information. You can also access the [facility] Patient Portal on the Flipora. Simply click on Health Records under Livemap and then click on the Vanessa logo. [...] Call your local pharmacy or go to [email or web address] to find one close to you.3.Make use of household items: Use cat litter or old coffee grounds to dispose medications if other options arenot available. Mix your drugs with these household products, seal them in an airtight container andthrow it into the garbage. Call [facility]: [phone] to be sure your drugs can be [...] aware that I should contact my doctor. 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 Name: LALY NAVAS /Sex: 1990 Female Med Rec #: [id number] Physician: Financial #: [id number] Pt. Type: O Room/Bed: / Admit/Disch: 07/04/22 [...] Left SN Last Modified By: Sam Junior OrchestratorSam Valero 07/04/22 12:51:23 A 07/04/22 12:52:44 A 07/04/22 [...] 5, Gauze Technologist Notes 8.5F x 26cm [place] sponge 4 X 4 Nephroureterostomy Stent lot#[id number] LT Renal Last Modified By: JAMAL Lindsey 07/04/22 13:56:46 General Case Data - IR Entry 1 Case Information Room IR 18 Case Level IR Level 2 Wound Class None Specialty SN Radiology Procedure ASA Class None Diagnosis Preop Diagnosis cerival cancer Postop Same As Preop Yes Postop Diagnosis cerival cancer Last Modified By: Sam Juniorhy Alice 07/04/22 12:56:49 Medication Administration- IR Entry [...] No No No Physician? Administered by: JAMAL iLndsey RN Deborah E Patton, RN Deborah E [...] César Oglesby RN results are properly Gail E, Sam Junior labeled and Tech Devika A [...] Points Yes Checked Last Modified By: Sam Juniorhy Alice 07/04/22 12:55:41 Radiology Procedure Plan - [...] Radiology - Action Plan Outcomes Met? Yes Senior Network Engineer JAMAL Lindsey Completing Procedure Plan Last Modified [...] Lindsey by Last Modified By: Sam Junior Tech Devika Alice 07/04/22 13:00:26 Case Comments <None> Finalized By: JAMAL Lindsey Document Signatures Signed By: JAMAL Lindsey 07/04/22 13:57 [facility] 09-01-2022 Evaluation + Plan noteExtracted from: [...] Ready to change: Yes. Physical Exam Vitals: Sqdhxhhmzrk49.7 (10:37) Systolic Blood PressureNo result Diastolic Blood PressureNo result Pulse88 (10:37) CsM866 (10:37) Respiratory Rate18 (10:37) General: Alert, cooperative. [...] Date:01/01/2023 11:30:00 AM Scheduled Provider:FLIP MARTIN MD Location:MANAGER OF HOSPITAL ONC Appointment Type:SO OV Follow Up Future [...] IR Neph Cath-Neph Ureter W/Guide Left 06/02/23 [facility] 09-01-2022 Note IR Procedure Record Summary Primary Physician: Finalized Date/Time: 07/04/22 13:57:26 Pt. Name: ILEANA NAVASAusten LambertO.B./Sex: 1990 Female Med Rec #: [id number] Physician: Financial #: [id number] Pt. Type: O Room/Bed: / Admit/Disch: 07/04/22 [...] 5, Gauze Technologist Notes 8.5F x 26cm [place] sponge 4 X 4 Nephroureterostomy Stent lot#[id number] LT Renal Last Modified By: JAMAL Lindsey 07/04/22 13:56:46 General Case Data - IR Entry 1 Case Information Room IR 18 Case Level IR Level 2 Wound Class None Specialty SN Radiology Procedure ASA Class None Diagnosis Preop Diagnosis cerival cancer Postop Same As Preop Yes Postop Diagnosis cerival cancer Last Modified By: Sam Junoir 07/04/22 12:56:49 Medication Administration- IR Entry 1 [...] Prep Prep Area Back Side Left By Elizabeth Patti Austen Rad Prep Agents Betadine Solution Tech Hair [...] Radiology - Action Plan Outcomes Met? Yes Senior Network Engineer JAMAL Lindsey Completing Procedure Plan Last Modified [...] Signatures Signed By: JAMAL Lindsey 07/04/22 13:57 [facility] HospitalDjyrvwvu76-42-0328 Hospital Discharge instructions Patient Education 07/04/2022 11:35:17 Radiology- Nephrostomy Tube Insertion(CUSTOM) ESPARTO Nephrostomy Tube Insertion Discharge Instructions Interventional Radiology [facility] [address] [facility] [address] The procedure that you had done today [...] mayexperience the feeling of needing to urinate. Uyiw-mhr-ozlectk pain medication should be used for pain [...] instruction below: 8:00 am- 5:00 pm call [phone] After 5:00 pm call [phone] After 24 hours, contact the physician who [...] until you are awake and alert. Take ebfr-eko-wbuwria and prescription medicines only as told by [...] 08/10/2014 Document Revised: 10/02/2018 Document Reviewed: 02/08/2017 [employer] Patient Education [employer] Follow Up Care 05/23/2022 11:54:48 With:FLIP MARTIN MD Address: [phone] When: Unknown Comments:Follow-up as scheduled [facility] 09-01-2022 Note INTERVENTIONAL RADIOLOGY POST PROCEDURE NOTE DATE: 07/04/2022 13:14:19 NAME: LALY NAVAS Pre-Procedure Diagnosis: Left ureteral obstruction. Post Procedure Diagnosis: Same. Tanker Driver: Dr. Viral Manuel Procedure: Left nephroureteral catheter exchange. Anesthesia: Procedural sedation. Findings: Success. Estimated Blood Loss: Minimal (Less Than 10 mL). Specimen: None. Complications: None. Full report with procedural details to follow and will become available under the Radiology tab of Results Review. Please contact for any questions or concerns. Viral Manuel MD Interventional Radiology Pager: [phone] Digitally Signed by VIRAL MANUEL MD on 07/04/2022 01:14 PM [facility] HospitalTxeatqbz61-56-9349 Summary of episode note Discharge Instructions Thank you for allowing [facility] to assist you with your healthcare needs. The following is importantdischarge information regarding your hospital visit. Your Care Team FLIP MARTIN MD What to do next Scheduled Follow-Up Appointments Appointment Type When With Where Contact InformationSO OV Follow Up 01/01/2023 11:30 AM LFIP CORRALES MD [facility] Follow Up Appointments Follow Up with FLIP MARTIN MD When Why: Follow-up as scheduled Where: [phone] Allergies codeine penicillin Medications Please ask your [...] medication providers or retail pharmacies. Education Materials ESPARTO Nephrostomy Tube Insertion Discharge Instructions Interventional Radiology [facility] [address] [place] [address] The procedure that you had done today [...] mayexperience the feeling of needing to urinate. Vgxg-yuo-vtejnwl pain medication should be used for pain [...] instruction below: 8:00 am- 5:00 pm call [phone] After 5:00 pm call [phone] After 24 hours, contact the physician who [...] until you are awake and alert. Take oyxb-lzr-emosevs and prescription medicines only as told by [...] 08/10/2014 Document Revised: 10/02/2018 Document Reviewed: 02/08/2017 [employer] Patient Education 2020 [employer] Additional Information VACCINATE! IT SAVES LIVES! Members of the community who have not yet received the COVID-19 vaccine and would like to receive it can visit one of [facility] vaccine clinics. There are many vaccine clinic locations within the [facility]. For locations and available times, please visit [email or web address]/. It is important to note that some COVID mobile vaccine clinics are held outdoors and may be canceled in rainy or stormy conditions. To learn more about pediatric vaccinations (ages 5-11), we invite you to visit the [facility] webpage. https://www.[email or web address]/pages/[email or web address]-Onpfd-Ddqdvcojbzt-Rfuypgyzyu-Lrwkv-Zbb stions.htmlTo learn more about the COVID-19 vaccine, we invite you to visit the [employer] website for a list of frequently asked questions. [email or web address] _Asked-Questions.pdf [facility] Patient Portal Access Instructions: Stay connected with your healthcare team and access your personal medical information anytime with the [facility] Patient Portal.If you would like a full copy of your medical records, please contact the [facility] Medical Records Department, Friday through Friday between 8a.m. and 4:30p.m. Please follow the directions below to access the portal: 1.Access the email account you provided upon [facility].2.Look for an invitation email from [facility].3.Open the email and access the invitation link: Accept Invitation to [facility]4.Fill in the required quintero to create your account. Sign into [email or web address] with your username and password that you [...] you will allow to register on the [facility] Patient Portal for access to your information. You can also access the [facility] Patient Portal on the Reconnex joya. Simply click on Health Records under Livemap and then click on the [employer] logo. HOW TO SAFELY DISPOSE OF PRESCRIPTION [...] Call your local pharmacy or go to http://MedPassage/1R9Bl5c to find one close to you.3.Make use of household items: Use cat litter or old coffee grounds to dispose medications if other options arenot available. Mix your drugs with these household products, seal them in an airtight container andthrow it into the garbage. Call [facility]: [phone] to be sure your drugs can be [...] aware that I should contact my doctor. 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 Physical Exam Vitals: Wfyijwxalyf58.7 (10:37) Systolic Blood PressureNo result Diastolic Blood PressureNo result Pulse88 (10:37) BlP728 (10:37) Respiratory Rate18 (10:37) General: Alert, cooperative. [...] VIRAL MANUEL MD on 07/04/2022 01:35 PM [facility]Kozatbfv07-[facility]-1153 Hospital Discharge instructions Patient Education 04/19/2022 16:08:04 [...] recently been a patient in a hospital, senior care, or another care facility. Have another illness [...] soap and water or an alcohol-based hand rural route carrier before they enter your roomand before they [...] soap and water or an alcohol-based hand rural route carrier before they enter your room and before they leave your room. Taking antibiotics exactly as prescribed by your health care provider. Washing your hands with soap and water or an alcohol-based hand rural route carrier after: ?Using the bathroom. ?Touching or coming [...] soap and water or an alcohol-based hand rural route carrier, especially after using the bathroom. This information is not intended to replace advice given to you by your health care provider. Make sure you discuss any questions you have with your health care provider. Document Released: 11/22/2017 Document Revised: 10/02/2018 Document Reviewed: 11/22/2017 [employer] Patient Education 2020 [employer]ert[employer]. Follow Up Care 04/14/2022 22:01:45 With:A referral has been made to [facility] for additional resources. Address: When: Unknown With:MARGOTH RUVALCABA BA, MD, Infectious Disease, Infectious Disease Group Address: [facility] [address] [place] [address]- When: Unknown Comments:Please call for a follow up appointment within 2 weeks With:[facility] - [phone] Address: When: Unknown With:[facility] - [phone]. Please go to [facility] for labs to be drawn and Port dressing change. APPT scheduled: SUNDAY 04/22 @ 11:00 AM. (Main entrance; Registration on left) Address: When: Unknown With:FLIP MARTIN MD Address: [address] [place] [id number] When:05/30/2022 14:50:00 [facility] 06-13-2022 Evaluation + Plan noteExtracted from: [...] tract infections. A UA was collected at [address] [place] [address] and was positive for nitrates. Patient has been and remains afebrile, WBC 11.0, patient was previously on ciprofloxacin and was transitioned to Bactrim today [facility] however did not take any of this medication yet, she received Rocephin at [facility] and we will switch her to meropenem due to previous sensitivities. Patient has left nephrostomy tube with clear yellow urine. She states that she emptied her nephrostomy tube for 600 cc of clear yellow urine today. A CT scan was obtained to [facility] which showed slightly dilated left ureter and [...] Minimum Maximum Temp 36.7(APR 15 04:20) 36.7(APR 15 04:20) 36.8(NILDA 12 22:09) Resp Rate 18(APR 15 04:20) 18(APR 14 22:09) 18(APR 14:09) SBP 100(APR 15 04:20) 100(APR 15 04:20) H 149(APR 14:) DBP 69(APR 15 04:20) 69(APR 15 04:20) H 95(APR 14 22:09) Physical exam: General Appearance: resting on room [...] this - Awaiting urine cultures collected at [facility], will follow up on throughout the week [...] urine culture and sensitivities. Addendum by BRITTNI LU-ELECTRIC MOTOR TESTER on April 15, 2022 11:03:55 EDT This [...] Date:05/30/2022 02:50:00 PM Scheduled Provider:FLIP MARTIN MD Location:[facility] Appointment Type:SO OV Follow Up Future Scheduled Tests Radiology* IR Neph Cath-Neph Ureter W/Guide Left 05/23/22 [facility] 06-09-2022 Hospital Discharge instructions Patient Education 04/11/2022 14:21:02 Radiology- Procedure/Biopsy 02/16/2020 (CUSTOM) [facility] Radiology Procedure/Biopsy Discharge Instructions Interventional Radiology [facility] [address] [address] Today, you had a . This procedure/biopsy [...] 1 to 2 days following the procedure. Bklq-lta-ladpnbb pain medication should be used for pain [...] instruction below: 8:00 am- 5:00 pm call [phone] After 5:00 pm call [phone] After 24 hours, contact the physician who [...] with primary care provider Address:Unknown When: Unknown [facility] 05-24-2022 Evaluation + Plan noteExtracted from: [...] Ready to change: Yes. Physical Exam Vitals: Gpjovxpygmi59.7 (11:47) Systolic Blood PressureNo result Diastolic Blood PressureNo result Pulse76 (11:47) YvK556 (11:47) Respiratory Rate18 (11:47) General: Alert, cooperative. Heart: RRR Lungs: CTA bilaterally The remainder of the physical exam is noncontributory. Labs Anticoagulation Labs No qualifying data available. No qualifying data available. Assessment/Treatment Plan Image guided left nephroureteral tube exchange Post Procedure Discharge Plan Patient to be discharged home. Fani Beckman PA-C Interventional Radiology Pager: [phone] IR dept: [phone] Available on [employer] Future Appointments Appointment Date:05/30/2022 02:50:00 PM Scheduled Provider:FLIP MARTIN MD Location:[facility] Appointment Type:SO Follow Up [facility] 02-18-2022 Evaluation + Plan noteExtracted from: [...] had ureteral stent placed in 06/2021 at [facility] and has not had a nephrostomy tube [...] Ready to change: Yes. Physical Exam Vitals: Gdvoxinaqog99.7 (10:38) Systolic Blood PressureNo result Diastolic Blood PressureNo result Pulse81 (10:38) ZiZ283 (10:38) Respiratory Rate16 (10:38) General: Alert, cooperative. : + LEFT nephrostomy tube The remainder of the physical exam is noncontributory. Labs Anticoagulation Labs No qualifying data available. No qualifying data available. Assessment/Treatment Plan Image guided LEFT nephrostomy tube change Post Procedure Discharge Plan Patient to be discharged home. Fani Beckman PA-C Interventional Radiology Pager: [phone] IR dept: [phone] Available on [employer] Future Appointments Appointment Date:01/29/2022 11:00:00 AM Scheduled Provider: Location:IR Appointment Type:IR Neph Cath-Neph Ureter W/Guide Left Future Scheduled Tests Laboratory* Urinalysis 12/22/20 * Urine Culture 12/22/20 Radiology* IR Neph Cath-Neph Ureter W/Guide Left 01/29/22 * US Renal 12/27/20 [facility] 02-18-2022 Hospital Discharge instructions Patient Education 12/21/2021 11:35:22 Radiology- Procedure/Biopsy 02/16/2020 (CUSTOM) [facility] Radiology Procedure/Biopsy Discharge Instructions Interventional Radiology [facility] [address] [address] Today, you had a Left Nephrostomy Tube [...] 1 to 2 days following the procedure. Fnou-obq-tbtghvv pain medication should be used for pain [...] instruction below: 8:00 am- 5:00 pm call [phone] After 5:00 pm call [phone] After 24 hours, contact the physician who [...] with primary care provider Address:Unknown When: Unknown [facility] 09-11-2021 NoteSend Summary: Discharge Summary Providers: [...] at Discharge: .Home Vital Signs: T PRBPSpO2 Value36.56104754/38445% Date/Time07/14 8: 8: 8: 8: 8:43 Range(36.8C [...] Follow up Scheduled Date/Time: 09-Aug-2021 11:10 Location: [facility], [address] [place] [address], [address], [place] [address] Discharge Medications: Home Medication sulfamethoxazole-trimethoprim 800 mg-160 mg oral tablet - 1 tab(s) orally every 12 hours PRN Medication LORazepam 1 mg oral tablet - 1 tab(s) orally 3 times a day, As Needed Electronic Signatures: Shira Teran) (Signed 19-Jul-2021 12:33) Authored: Send Summary, Summary Content, Ongoing Care, Note Completion Last Updated: 19-Jul-2021 12:33 by Shira Teran)[facility]09[facility]09[facility]2021 NoteHistory of Present Illness: HPI: LALY NAVAS [...] As Needed. Objective: Objective Information: T PRBPSpO2 Value36.51037814/53562% Date/Time07/12 0: 0: 0: 0: 0:17 Range(36.4C [...] Reference Range: STRAW,YELLOW Appearance, Urine HAZY Specific [place], Urine 1.010 pH, Urine 6.0 Protein, Urine [...] Authorization (EUA) and has been verified by [facility] ([facility]). This test is only authorized for the duration of time korin Date of Symptom Onset [id number] Culture, Blood Trending View [id number] 14:43:00 11-Jul-2021 14:42:00 Culture, BloodNEGATIVE TO DATE, [...] Lymphocyte Count 2.39 Monocyt (more content not included)...[facility]09[facility]2021 Hospital Discharge instructions* Vascular Access Port: [id number] Access Port: right chestVascular Access Port: top entry * Activity:activity as tolerated. * Follow Up Appointment 1:Physician/Dept/Service: Dr Polo Harden for Referral: Follow upScheduled Date/Time: 09-Aug-2021 11:10Location: [facility], [address] [place] [address], [address], [place], [place] [address]Phone Number: [phone] [facility]08-30-2021 NotePre-procedure Verification and Time Out: Pre-Procedure Verification and Time Out: Procedure Locationprocedure area HUDDLE - Pre-procedure Verificationcompleted TIME OUT - Final Verificationcompleted immediately prior to procedure start DEBRIEFcompleted General Information: Anesthesia Critical Care: Non-Anesthesia Post-Procedure Diagnosis: same Procedure Name: 1- PCN to NU catheter conversion. 2- balloon dilatation of the distal left ureter Findings: grossly normal anatomy Procedure performed by: Dr. Munoz Glass Enamel Mixer(s): Arie Esqueda (resident) Estimated Blood Loss (mL): [...] Completion Last Updated: 02-Jul-2021 15:23 by Rohith Munoz)[facility]Discharge summary Author Jatin Garcia [facility] Note Date/Time April 09, 2025 2:44a [facility] Medical Records Department [address] [place] [address] Emergency Department Summary 04/09/25 MR#: [id number] Acct: [id number] Name: LALY NAVAS Rep #:[id number] : 1990 34 From: Jatin Garcia MD [...] has been doing but the pain is ial-ds-pnfchuc and she is feeling very nauseated and does not want to waste her pain management prescription by vomiting it up. She denies any fevers or chills. No dysuria orhematuria. She has been on antibiotics for several weeks, currently on Bactrim,and states that she was admitted to [place] where her oncologist and urologist are, she [...] has known about those issues for years. [facility] Medical History Nephrostomy present Kidney failure [...] % (Auto) 54.6 Lymph % (Auto) 32.0 [place] % (Auto) 8.9 Eos % (Auto) 3.2 [...] Clarity Clear Urine pH 6.0 Ur Specific [place] 1.010 Urine Protein Negative Urine Glucose (UA) [...] Staff - Active Staff] - Print Language: Nigerian Disposition Disposition: Home, Self Care What to do if you have Problems For any increased pain, shortness of breath, bleeding, nausea or vomiting, chestpain, or any unexpected problems, contact your Primary Care Provider. Call [facility] ([phone]) or report to the closest Emergency Room. Call 911 if necessary. 04/09/25 0244 <Electronically signed by Jatin Garcia MD> Cosigner Signature (if applicable): CC: OLE PACE ~ Signed [facility] Work Phone: Evaluation + Plan note Future Appointments Appointment Date:11/22/2021 03:40:00 PM Scheduled Provider:FLIP MARTIN MD Location:[facility]C Appointment Type:SO OV Follow Up Future Scheduled Tests Laboratory* Urinalysis 12/22/20 * Urine Culture 12/22/20 * Complete Blood Count 08/30/20 * Complete Metabolic Panel 08/30/20 Radiology* XR Abdomen AP 11/09/20 * IR Nephrostomy Tube Change Lt Guide 08/31/20 * US Renal 12/27/20 * IR Nephrostomy Tube Remove Lt Guide 09/06/20 [facility] Evaluation + Plan note Future Appointments Appointment Date:03/26/2022 01:00:00 PM Scheduled Provider: Location:IR Appointment Type:IR Neph Cath-Neph Ureter W/Guide Left Appointment Date:05/30/2022 02:50:00 PM Scheduled Provider:FLIP MARTIN MD Location:[facility] Appointment Type:SO OV Follow Up Future Scheduled Tests Radiology* IR Neph Cath-Neph Ureter W/Guide Left 03/26/22 [facility] Evaluation + Plan note Future Appointments Appointment Date:05/23/2022 11:00:00 AM Scheduled Provider: Location:IR Appointment Type:IR Neph Cath-Neph Ureter W/Guide Left Appointment Date:05/30/2022 02:50:00 PM Scheduled Provider:FLIP MARTIN MD Location:[facility] Appointment Type:SO OV Follow Up Future Scheduled Tests Radiology* IR Neph Cath-Neph Ureter W/Guide Left 05/23/22 [facility] Evaluation + Plan note Future Appointments Appointment Date:08/15/2022 01:00:00 PM Scheduled Provider: Location:IR Appointment Type:IR Neph Cath-Neph Ureter W/Guide Left Appointment Date:01/01/2023 11:30:00 AM Scheduled Provider:FLIP MARTIN MD Location:[facility] Appointment Type:SO OV Follow Up Diagnostic [...] IR Neph Cath-Neph Ureter W/Guide Left 08/15/22 [facility] Evaluation + Plan note Future Appointments Appointment Date:10/02/2022 11:00:00 AM Scheduled Provider: Location:IR Appointment Type:IR Neph Cath-Neph Ureter W/Guide Left Appointment Date:01/01/2023 11:30:00 AM Scheduled Provider:FLIP MARTIN MD Location:[facility] Appointment Type:SO OV Follow Up Future [...] IR Neph Cath-Neph Ureter W/Guide Left 10/02/22 [facility] Evaluation + Plan note Future Appointments Appointment Date:10/02/2022 11:00:00 AM Scheduled Provider: Location:IR Appointment Type:IR Neph Cath-Neph Ureter W/Guide Left Appointment Date:01/01/2023 11:30:00 AM Scheduled Provider:FLIP MARTIN MD Location:[facility] Appointment Type:SO OV Follow Up Diagnostic [...] IR Neph Cath-Neph Ureter W/Guide Left 10/02/22 [facility] Evaluation + Plan note Future Appointments [...] IR Neph Cath-Neph Ureter W/Guide Left 01/07/23 [facility] Evaluation + Plan note Future Appointments [...] IR Neph Cath-Neph Ureter W/Guide Left 01/07/23 [facility] Evaluation + Plan note Future Appointments Appointment Date:02/20/2023 02:50:00 PM Scheduled Provider:FLIP MARTIN MD Location:[facility] Appointment Type:SO OV Appointment Date:05/12/2023 11:00:00 [...] IR Neph Cath-Neph Ureter W/Guide Left 05/12/23 [facility] Evaluation + Plan note Future Appointments Appointment Date:06/24/2023 11:00:00 AM Scheduled Provider: Location:IR Appointment Type:IR Neph Cath-Neph Ureter W/Guide Left Appointment Date:08/20/2023 03:20:00 PM Scheduled Provider:FLIP MARTIN MD Location:[facility] Appointment Type:SO OV Follow Up Future Scheduled Tests Laboratory* Pathology Metal Window Frame Maker Request 05/15/23 * Urinalysis 02/14/23 Radiology* IR [...] BD Bone Density DEXA Axial Skeleton 05/15/23 [facility] evaluation + Plan note Future Appointments Appointment Date:06/30/2023 02:00:00 PM Scheduled Provider: Location:IR Appointment Type:IR Neph Cath-Neph Ureter W/Guide Left Appointment Date:07/30/2023 11:30:00 AM Scheduled Provider:FLIP MARTIN MD Location:[facility] Appointment Type:SO OV Follow Up Future Scheduled Tests Laboratory* Pathology Metal Window Frame Maker Request 05/15/23 * Urinalysis 02/14/23 Radiology* IR [...] BD Bone Density DEXA Axial Skeleton 05/15/23 [facility] Evaluation + Plan note Future Appointments Appointment Date:07/31/2023 03:00:00 PM Scheduled Provider:OLE PACE MD Location:[facility] Appointment Type:PALL New Patient Appointment Date:09/04/2023 01:00:00 PM Scheduled Provider: Location:IR Appointment Type:IR Nephrostomy Tube Change Lt Guide Appointment Date:10/31/2023 10:00:00 AM Scheduled Provider:BRITTNI LU Location:[facility] Appointment Type:SO OV Follow Up Future Scheduled Tests Laboratory* Pathology Metal Window Frame Maker Request 05/15/23 * Urinalysis 02/14/23 Radiology* IR [...] IR Nephrostomy Tube Change Lt Guide 06/21/24 [facility] Evaluation + Plan note Future Appointments Appointment Date:09/04/2023 01:00:00 PM Scheduled Provider: Location:IR Appointment Type:IR Nephrostomy Tube Change Lt Guide Appointment Date:09/09/2023 10:30:00 AM Scheduled Provider:OLE PACE MD Location:[facility] Appointment Type:PALL OV Follow Up Appointment Date:10/31/2023 10:00:00 AM Scheduled Provider:BRITTNI LU Location:[facility] Appointment Type:SO OV Follow Up Future Scheduled Tests Laboratory* Pathology Metal Window Frame Maker Request 05/15/23 * Urinalysis 02/14/23 Radiology* IR [...] IR Nephrostomy Tube Change Lt Guide 06/21/24 [facility] Evaluation + Plan note Future Appointments Appointment Date:10/14/2023 01:00:00 PM Scheduled Provider:OLE PACE MD Location:[facility] Appointment Type:PALL OV Follow Up Appointment Date:10/31/2023 10:00:00 AM Scheduled Provider:BRITTNI LU Location:[facility] Appointment Type:SO OV Follow Up Future Scheduled Tests Laboratory* Urinalysis 02/14/23 Radiology* IR Neph Cath-Neph Ureter W/Guide Left 06/30/23 * IR Nephrostomy Tube Change Lt Guide 09/04/23 [facility] Evaluation + Plan note Future Appointments Appointment Date:12/03/2023 11:00:00 AM Scheduled Provider: Location:IR Appointment Type:IR Nephrostomy Exchange Appointment Date:12/08/2023 03:00:00 PM Scheduled Provider:OLE PACE MD Location:[facility] Appointment Type:PALL OV Follow Up Appointment Date:12/08/2023 03:40:00 PM Scheduled Provider:BRITTNI LU Location:[facility] Appointment Type:SO OV Future Scheduled Tests Laboratory* Urinalysis 02/14/23 Radiology* IR Nephrostomy Exchange 12/03/23 * IR Neph Cath-Neph Ureter W/Guide Left 06/30/23 * IR Nephrostomy Tube Change Lt Guide 09/04/23 [facility] evaluation + Plan note Future Appointments Appointment Date:01/06/2024 10:30:00 AM Scheduled Provider:OLE PACE MD Location:[facility] Appointment Type:PALL OV Follow Up Appointment Date:01/14/2024 10:00:00 AM Scheduled Provider: Location:IR Appointment Type:IR Nephrostomy Exchange Appointment Date:04/07/2024 03:20:00 PM Scheduled Provider:BRITTNI LU Location:[facility] Appointment Type:SO OV Follow Up Future Scheduled Tests Laboratory* Pathology Metal Window Frame Maker Request 12/08/23 * Urinalysis 02/14/23 Radiology* IR Nephrostomy Exchange 01/14/24 * IR Neph Cath-Neph Ureter W/Guide Left 06/30/23 * IR Nephrostomy Tube Change Lt Guide 09/04/23 [facility] evaluation + Plan note Future Appointments Appointment Date:01/14/2024 10:00:00 AM Scheduled Provider: Location:IR Appointment Type:IR Nephrostomy Exchange Appointment Date:02/03/2024 10:30:00 AM Scheduled Provider:OLE PACE MD Location:[facility] Appointment Type:PALL OV Follow Up Appointment Date:04/07/2024 03:20:00 PM Scheduled Provider:BRITTNI LU Location:[facility] Appointment Type:SO OV Follow Up Future Scheduled Tests Laboratory* Urinalysis 02/14/23 Radiology* IR Nephrostomy Exchange 01/14/24 * IR Neph Cath-Neph Ureter W/Guide Left 06/30/23 * IR Nephrostomy Tube Change Lt Guide 09/04/23 [facility] evaluation + Plan note Future Appointments Appointment Date:04/01/2024 11:00:00 AM Scheduled Provider:OLE PACE MD Location:[facility] Appointment Type:PALL OV Follow Up Appointment Date:04/07/2024 03:20:00 PM Scheduled Provider: Location:[facility] Appointment Type:SO OV Follow Up Future Scheduled Tests Laboratory* Clostridium difficile (PCR) 03/04/24 * Ova + Parasite Exam 03/04/24 Radiology* IR Nephrostomy Tube Change Lt Guide 09/04/23 [facility] evaluation + Plan note Future Appointments Appointment Date:03/14/2025 01:30:00 PM Scheduled Provider:OLE PACE MD Location:[facility] Appointment Type:PALL OV Follow Up Appointment Date:03/30/2025 10:40:00 AM Scheduled Provider:GONZALEZ SANDERS MD Location:UROLOGY Appointment Type:URO OV Appointment Date:04/13/2025 01:00:00 PM Scheduled Provider: Location:IR Appointment Type:IR Nephrostomy Exchange Appointment Date:05/18/2025 11:20:00 AM Scheduled Provider: Location:[facility] Appointment Type:SO OV Follow Up Future Scheduled Tests Laboratory* hCG, quantitative (AH/AM Only) 11/15/24 Radiology* IR Nephrostomy Exchange 04/13/25 * IR Nephrostomy Exchange 12/30/24 * CT Renal 03/08/25 * NM Kidney Diuretic 03/08/25 [facility] Evaluation + Plan note Future Appointments Appointment Date:03/30/2025 10:40:00 AM Scheduled Provider:GONZALEZ SANDERS MD Location:UROLOGY Appointment Type:URO OV Appointment Date:03/30/2025 11:30:00 AM Scheduled Provider:OLE PACE MD Location:[facility] Appointment Type:PALL OV Follow Up Appointment Date:04/13/2025 01:00:00 PM Scheduled Provider: Location:IR Appointment Type:IR Nephrostomy Exchange Appointment Date:05/18/2025 11:20:00 AM Scheduled Provider: Location:[facility] Appointment Type:SO OV Follow Up Future Scheduled Tests Laboratory* hCG, quantitative (AH/AM Only) 11/15/24 Radiology* IR Nephrostomy Exchange 04/13/25 * IR Nephrostomy Exchange 12/30/24 * CT Renal 03/08/25 * NM Kidney Diuretic 03/08/25 [facility] Evaluation + Plan note Future Appointments Appointment Date:04/13/2025 01:00:00 PM Scheduled Provider: Location:IR Appointment Type:IR Nephrostomy Exchange Appointment Date:05/18/2025 11:20:00 AM Scheduled Provider: Location:[facility] Appointment Type:SO OV Follow Up Future Scheduled Tests Laboratory* hCG, quantitative (AH/AM Only) 11/15/24 Radiology* IR Nephrostomy Exchange 04/13/25 * IR Nephrostomy Exchange 12/30/24 * CT Renal 03/08/25 * NM Kidney Diuretic 03/08/25 * NM Kidney Diuretic 03/30/25 [facility] Evaluation + Plan note Future Appointments Appointment Date:04/12/2025 08:30:00 AM Scheduled Provider: Location:XRAY Appointment Type:NM Kidney Diuretic Appointment Date:04/13/2025 01:00:00 PM Scheduled Provider: Location:IR Appointment Type:IR Nephrostomy Exchange Appointment Date:05/11/2025 11:00:00 AM Scheduled Provider:OLE PCAE MD Location:[facility] Appointment Type:PALL OV Follow Up Appointment Date:05/18/2025 11:20:00 AM Scheduled Provider: Location:[facility] Appointment Type:SO OV Follow Up Future Scheduled Tests Laboratory* hCG, quantitative (AH/AM Only) 11/15/24 Radiology* IR Nephrostomy Exchange 04/13/25 * IR Nephrostomy Exchange 12/30/24 * CT Renal 03/08/25 * NM Kidney Diuretic 03/08/25 * NM Kidney Diuretic 04/12/25 [facility] evaluation + Plan note Future Appointments Appointment Date:05/11/2025 11:00:00 AM Scheduled Provider:OLE PACE MD Location:[facility] Appointment Type:PALL OV Follow Up Appointment Date:05/18/2025 11:20:00 AM Scheduled Provider: Location:[facility] Appointment Type:SO OV Follow Up Future Scheduled Tests Laboratory* hCG, quantitative (AH/AM Only) 11/15/24 Radiology* IR Nephrostomy Exchange 12/30/24 * CT Renal 03/08/25 * NM Kidney Diuretic 03/08/25 * NM Kidney Diuretic 04/12/25 [facility] evaluation + Plan note Future Appointments Appointment Date:05/11/2025 11:00:00 AM Scheduled Provider:OLE PACE MD Location:[facility] Appointment Type:PALL OV Follow Up Appointment Date:05/18/2025 11:20:00 AM Scheduled Provider: Location:[facility] Appointment Type:SO OV Follow Up Appointment Date:05/19/2025 01:00:00 PM Scheduled Provider: Location:IR Appointment Type:IR Nephrostomy Exchange Future Scheduled Tests Laboratory* hCG, quantitative (AH/AM Only) 11/15/24 Radiology* IR Nephrostomy Exchange 05/19/25 * IR Nephrostomy Exchange 12/30/24 * CT Renal 03/08/25 * NM Kidney Diuretic 03/08/25 * NM Kidney Diuretic 04/12/25 [facility] evaluation + Plan note Future Appointments Appointment Date:06/08/2025 11:30:00 AM Scheduled Provider:OLE PACE MD Location:[facility] Appointment Type:PALL OV Follow Up Appointment Date:06/29/2025 08:00:00 AM Scheduled Provider: Location:IR Appointment Type:IR Nephrostomy Exchange Future Scheduled Tests Laboratory* hCG, quantitative (AH/AM Only) 11/15/24 Radiology* IR Nephrostomy Exchange 06/29/25 * IR Nephrostomy Exchange 12/30/24 * CT Renal 03/08/25 * NM Kidney Diuretic 03/08/25 * NM Kidney Diuretic 04/12/25 [facility] Evaluation note* Respiratory/Thorax: Patent airways, CTAB, [...] senses, motor, response and reflexes, normal strength [facility]Evaluation noteNo assessment information available [facility] Work Phone: Hospital course Narrative No data available for this section [facility] Hospital Discharge instructions No data available for this section [facility] Hospital Discharge instructionsAdditional Instructions Your urine [...] main doctor for discussion of further pain management.[facility] Work Phone: Progress note No data available for this section [facility] Reason for referral (narrative)No reason for referral information availableWA[facility] Work Phone: Summary note* Cierra Adamson N: PERFORM Event Display: Patient Summary Documents Authored Date: [id number] [facility] Summary Purpose Family History No Family [...] FoundNo Family History Records Found Advance Directives Advance Directive Response Recorded Date/ Time Do you have a Healthcare Power of Perfusionist? No April 09, 2025 12:20am Advance Directive Response Recorded Date/ Time Do you have a Healthcare Power of Perfusionist? No June 02, 2025 12:13am Do you have a Healthcare Power of Perfusionist? No April 09, 2025 12:20am Advance Directive Response Recorded Date/ Time Do you have a Healthcare Power of Perfusionist? No June 02, 2025 12:13am Do you have a Healthcare Power of Perfusionist? No June 03, 2025 11:33pm Do you have a Healthcare Power of Perfusionist? No April 09, 2025 12:20am Chief Complaint and Reason for Visit Chief Complaint Admit Date KIDNEY STONES April 09, 2025 12:20 am Chief Complaint Admit Date KIDNEY STONES April 09, 2025 12:20 am PAIN June 01, 2025 11:5 4pm Chief Complaint Admit Date KIDNEY STONES April 09, 2025 12:20 am PAIN June 01, 2025 11:5 4pm abd pain, flank pain June 03, 2025 11 :27pm Additional Source Comments INFORMATION SOURCE (unrecogn ized section and content) DATE CREATED AUTHOR 05/23/2020 [facility] DATE CREATED AUTHOR AUTHOR'S ORGANIZ ATION 10/25/2020 [facility] DATE CREATED AUTHOR AUTHOR'S ORGANIZ ATION 08/11/2021 [employer] DATE CREATED AUTHOR AUTHOR'S ORGANIZ ATION 08/29/2021 [facility] DATE CREATED AUTHOR AUTHOR'S ORGANIZ ATION 06/25/2024 [facility] ([place]) DATE CREATED AUTHOR AUTHOR'S ORGANIZ ATION 05/21/2025 [facility] DATE CREATED AUTHOR AUTHOR'S ORGANIZ ATION 06/02/2025 [facility] DATE CREATED AUTHOR AUTHOR'S ORGANIZ ATION 06/04/2025 [facility] DATE CREATED AUTHOR AUTHOR'S ORGANIZ ATION 06/04/2025 [facility] <item> Privacy Markings (unrecogniz ed section [...] April 09, 2025 End: April 09, 2025 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 Maryellen Haile DO Emergency Provider Active Start: June 01, 2025 End: June 02, 2025 Team Status: Inactive Member Role/Relationship Status Dates SANJEEV HANDY Primary Care Provider Active Star t: June 03, 2025 End: June 04, 2025 Dr. Yeison Webber DO Emergency Provider Active Start : June 03, 2025 End: June 04, 2025 Care Team (unrecognized sect ion and content) Care Team Personnel Name: Pari Brice Position: Quality Review Member Role: Clerical Supervisor Name: FLIP MARTIN MD Position: P4 Oncology Provider Member Role: Primary Care Physician Address: Address: [address] [place] [address] [address] [place] [address] [place] Name: Maryann Mae RN Position: [facility] Member Role: Palliative Care Team Related Persons Name: HAM GRISSOM Name: JESSICA NAVAS Name: ZANDRA ALCANTARA Name: AUSTIN HADDAD Care Team Personnel Name: Pari Brice Position: Quality Review Member Role: Clerical Supervisor Name: FLIP MARTIN MD Position: P4 Oncology Provider Med Service: [facility] Infusion Therapy Member Role: Primary Care Physician Address: Address: [address] [place] [address] Gynec[address] On[address] [place], [place] [address] Name: FLIP MARTIN MD Position: P4 Oncology Provider Med Service: [facility] Infusion Therapy Member Role: Primary Care Physician Address: Address: [address] [place] [address] [facility] Name: Maryann Mae RN Position: [facility] Med Service: Palliative Care Member Role: Palliative Care Team Related Persons Name: HAM GRISSOM Name: JESSICA NAVAS Name: ZANDRA ALCANTARA Name: AUSTIN HADDAD Care Team Personnel Name: Pari Brice Position: Quality Review Member Role: Clerical Supervisor Name: FLIP MARTIN MD Position: Oncology Provider Med Service: [facility] Infusion Therapy Member Role: Primary Care Physician Address: Address: [address] [place] [address] [facility] Name: FLIP MARTIN MD Position: Oncology Provider Med Service: [facility] Infusion Therapy Member Role: Primary Care Physician Address: Address: [address] [place] [address] [facility] Name: Maryann Mae RN Position: [facility] Med Service: Palliative Care Member Role: Palliative Care Team Related Persons Name: HAM GRISSOM Name: JESSICA NAVAS Name: ZANDRA ALCANTARA Name: AUSTIN HADDAD Care Team Personnel Name: Pari Brice Position: Quality Review Member Role: Clerical Supervisor Name: FLIP MARTIN MD Position: Oncology Provider Member Role: Primary Care Physician Address: Address: [address] [place] [address] [facility] Name: Maryann Mae RN Position: [facility] Member Role: Palliative Care Team Related Persons Name: HAM GRISSOM Name: JESSICA NAVAS Name: ZANDRA ALCANTARA Name: AUSTIN HADDAD Care Team Personnel Name: FLIP MARTIN MD Position: Oncology Provider Member Role: Primary Care Physician Address: Address: [address] [place] [address] [facility] Name: Maryann Mae RN Position: [facility] Member Role: Palliative Care Team Related Persons Name: HAM GRISSOM Name: JESSICA NAVAS Name: ZANDRA ALCANTARA Name: AUSTIN HADDAD Care Team Personnel Name: Pari Brice Position: Quality Review Member Role: Clerical Supervisor Name: FLIP MARTIN MD Position: P4 Oncology Provider Member Role: Primary Care Physician Address: Address: [address] [place] [address] [facility] [facility] Name: Maryann Mae RN Position: [facility] Member Role: Palliative Care Team Related Persons Name: HAM GRISSOM Name: JESSICA NAVAS Name: ZANDRA ALCANTARA Name: AUSTIN HADDAD Care Team Personnel Name: Pari Brice Position: Quality Review Member Role: Clerical Supervisor Name: FLIP MARTIN MD Position: P4 Oncology Provider Member Role: Primary Care Physician Address: Address: [address] [place] [address] [facility] Name: Maryann Mae RN Position: [facility] Member Role: Palliative Care Team Related Persons Name: HAM GRISSOM Name: JESSICA NAVAS Name: ZANDRA ALCANTARA Name: AUSTIN HADDAD Care Team Personnel Name: Pari Brice Position: Quality Review Member Role: Clerical Supervisor Name: FLIP MARTIN MD Position: P4 Oncology Provider Member Role: Primary Care Physician Address: Address: [address] [place] [address] [facility] [facility] Name: Maryann Mae RN Position: [facility] Member Role: Palliative Care Team Related Persons Name: HAM GRISSOM Name: JESSICA NAVAS Name: ZANDRA ALCANTARA Name: AUSTIN HADDAD Care Team Personnel Name: aPri Brice Position: Quality Review Member Role: Clerical Supervisor Name: FLIP MARTIN MD Position: P4 Oncology Provider Member Role: Primary Care Physician Address: Address: [address] [place] [address] [facility] Name: Maryann Mae RN Position: [facility] Member Role: Palliative Care Team Related [...] BE BASED ON THE PRIMARY CLINICAL RECORDS. [facility] [facility]. provides no warranty or guarantee of the accuracy or completeness of information in this document.
[2025-06-05] MEDS: DiphenhydrAMINE 50 MG/ML Syringe 25 MG IV (00:38)
[2025-06-05 01:53] VITALS: BP 127/88; PULSE 85; RESP 20; O2SAT 99
[2025-06-05 02:12] VITALS: BP 117/79; PULSE 79; RESP 18; TEMP 36.1; O2SAT 99
== END 2025-06-05 02:13 | disposition home or self-care (01) ==
PROVIDERS: Emergency Provider Emergency Medicine; Visit Provider Emergency Medicine
DX: N20.0 Calculus of kidney (principal); Z93.6 Other artificial openings of urinary tract status; M79.89 Other specified soft tissue disorders; Z51.5 Encounter for palliative care; F17.210 Nicotine dependence, cigarettes, uncomplicated; Z87.442 Personal history of urinary calculi; Z85.41 Personal history of malignant neoplasm of cervix uteri
CPT/HCPCS: 80048; 85025; 96361; 96374; 96375; 99283; J2405

== ENCOUNTER 2025-06-07 00:19 | Emergency (ER) | payer MEDICARE, SELFPAY ==
[2025-06-07 00:20] VITALS: BP 121/80; PULSE 100; RESP 18; TEMP 36.5; O2SAT 100; BMI 20.5
--- OUTSIDE RECORDS SUMMARY | 2025-06-07 00:59 | XMS RPT_ITS | CCD ---
Author Organization [facility] Care Team Providers Care Accounting Consultant Name Role Phone Flip Martin Unavailable Unavailable Shira Teran Unavailable Urology Consult Unavailable Unavailable Polo Plummer Unavailable FLIP MARTIN MD Primary Care Physician [phone] FLIP MARTIN MD Primary Care Physician [phone] PHYSICIAN, NONE Primary Care Physician Unavailab le OTHER, PROVIDER NOT SPECIFIED Primary Care Physi pedro Unavailable FLIP MARTIN MD Primary Care Unavailable MADELINE APARICIO Attending Unavailable MAIRN COTE MD Consulting Unavailable FLIP MARTIN MD [...] Care Unavailable FLIP MARTIN MD Attending Unavailable LFIP MARTIN MD Primary Care Unavailable FLIP MARTIN MD Attending Unavailable FLIP MARTIN MD Primary Care Unavailable OLE PACE MD Attending Unavailable PHYSICIAN, NONE Primary Care Unavailable OLE PACE MD Attending Unavailable OTHER, PROVIDER NOT SPECIFIED Primary Care Un available YUNIEL GUDINO, NAYELI Consulting UnavailOLE Mcknight MD Attending Unavailable [...] Primary Care Unavailable RONY OMER, BRITTNI Attending UnavailDALY Perez MD Consulting Unavailable FLIP MARTIN MD Attending Unavailable [...] Emergency Provider OLE PACE Primary Care Provider [phone] Ben Fonseca MD Unavailable Dr. Jatin Garcia MD Attending Provider Dr. Maryellen Haile DO Emergency Provider SHARON LORA, DR OLI Jenkins Admitting Unavailable SKY HARRIS Attending Unavailable SANJEEV LORA, OLE A Primary Care Unavailable OLE PACE MD Attending Unavailable SANJEEV LORA, OLE A Primary Care Unavailable SANJEEV LORA, OLE Jenkins Attending Unavailable SANJEEV LORA, OLE A Primary Care Unavailable SANJEEV LORA, OLE A Primary Care Unavailable SANJEEV LORA, OLE Jenkins Attending Unavailable GONZALEZ SANDERS MD Attending Unavailable SANJEEV LORA, OLE A Primary Care Unavailable SANJEEV LORA, OLE Jenkins Attending Unavailable SANJEEV LORA, OLE A Primary Care Unavailable NAYELI BRICE DO Consulting Unavailcydney PACE MD, OLE A Primary Care Unavailable NASRIN IASBEL MD Attending Unavailable GARTH GOSS MD Consulting Unavailable SANJEEV LORA, OLE A Primary Care Unavailable OLE PACE MD Attending Unavailable OLE PACE MD Attending Unavailable SANJEEV LORA, OLE A Primary Care Unavailable NASRIN ISABEL MD Attending Unavailable SANJEEV LORA, OLE A Primary Care Unavailable SANJEEV LORA, OLE A Primary Care Unavailable JENNI LORA, DR JURADO [...] DR SEGAL Attending Unavailable OLE PACE MD A Primary Care Unavailable GONZALEZ SANDERS MD Consulting Unavailable OLE PACE MD Consulting Unavailable OLE PACE MD Attending Unavailable OLE PACE MD A Primary Care Unavailable NASRIN ISABEL MD Attending Unavailable OLE PACE MD A Primary Care Unavailable OLE PACE MD A Primary Care Unavailable LEONARDO NULL Attending Unavaila OLE Wong MD A Primary Care Unavailable CLOTILDE RANDHAWA DO Attending Unavailable GONZALEZ SANDERS MD Attending Unavailable OLE PACE MD A Primary Care Unavailable AVILA OMER, PINA Jenkins Attending Unavail able OLE PACE MD A Primary Care Unavailable MARKUS LORA, DR CORREA Attending Unavailable OLE APCE MD A Primary Care Unavailable TADEO LEIJA PA-C Attending Unavailabl alan PACE MD, OLE A Primary Care Unavailable VON BACA MD Attending Unavaila ble CLOTILDE RANDHAWA DO Consulting Unavailable SANJEEV LORA, OLE A Primary Care Unavailable MARIN OCTE MD Consulting Unavailable AVILA BRIM GREASER OPERATOR-EMPLOYER RELATIONS REPRESENTATIVE, PINA Jenkins Attending Unavail able SANJEEV LORA, OLE A Primary Care Unavailable OLE MONK MD Consulting Unavailable AVILA BRIM GREASER OPERATOR-EMPLOYER RELATIONS REPRESENTATIVE, PINA Jenkins Attending Unavail able SANJEEV LORA, OLE A Primary Care Unavailable SANJEEV LORA, OLE A Primary Care Unavailable CLOTILDE RANDHAWA DO Consulting Unavailable MAAME LORA, NASRIN Attending Unavailable SANJEEV LORA, OLE A Primary Care Unavailable MAAME LORA, NASRIN Attending Unavailable SANJEEV LORA, OLE A Primary Care Unavailable AVILA BRIM GREASER OPERATOR-EMPLOYER RELATIONS REPRESENTATIVE, PINA A Attending Unavail able GONZALEZ SANDERS MD Attending Unavailable SANJEEV LORA, OLE A Primary Care Unavailable SANJEEV LORA, OLE Jenkins Primary Care Unavailable DR ARLEY MARIE DO Attending Unavailable GUCCI ALEXANDRE Attending Unavailable OLE PANTOJA MD, I Consulting Unavailable SANJEEV LORA, OLE Jenkins Primary Care Unavailable DELMAR MICHAEL DO Attending Unavailable SANJEEV LORA, OLE A Primary Care Unavailable SANJEEV LORA, OLE Jenkins Primary Care Unavailable GUCCI ALEXANDRE Attending Unavailable SANJEEV LORA, OLE Jenkins Primary Care Unavailable JASKARAN MEDRANO MD Attending Unavailable Dr. Yeison Webber DO Emergency Provider OLE PACE Primary Care Provider [phone] BRIJESH, VIRAL Primary Care Unavailable Yeison Webber Attending Unavailable Maryellen Haile Attending Unavailable ELDER, VIRAL Primary Care Unavailable ELDER, VIRAL Primary Care Unavailable Yieson Webber Attending Unavailable ELDER, VIRAL Primary Care Unavailable Jatin Garcia Attending Unavailable GONZALEZ CARTER DO Primary Care Unavailable GONZALEZ CARTER DO Attending Unavailable GONZALEZ CARTER DO Admitting Unavailable GONZALEZ CARTER DO Admitting Unavailable GONZALEZ CARTER DO Primary Care Unavailable GONZALEZ CARTER DO Attending Unavailable ALICIA RODRIGUEZ MD Attending Unavailable ALICIA RODRIGUEZ MD Admitting Unavailable ALICIA RODRIGUEZ MD Primary Care Unavailable GONZALEZ CARTER DO Admitting Unavailable GONZALEZ CARTER DO Primary Care Unavailable GONZALEZ CARTER DO Attending Unavailable GONZALEZ CARTER DO Primary Care Unavailable GONZALEZ CARTER DO Attending Unavailable GONZALEZ CARTER DO Admitting Unavailable KORINA AGUILAR MD Attending Unavailable KORINA AGUILAR MD Admitting Unavailable KORINA AGUILAR MD Primary Care Unavailable MOY, OBED C Attending Unavailable WINTER, OBED C Admitting Unavailable MOY, OBED C Primary Care Unavailable GONZALEZ CARTER DO Admitting Unavailable DIDDIANA, GONZALEZ GUDINO Primary Care Unavailable DIDGONZALEZ ORTIZ DO Attending Unavailable DIDDIANA, GONZALEZ GUDINO Admitting Unavailable DIDGONZALEZ ORTIZ DO Primary Care Unavailable DIDGONZALEZ ORTIZ DO Attending Unavailable RADHA, GUCCI E Admitting Unavailable RADHA, GUCCI E Primary Care Unavailable RADHA, GUCCI E Attending Unavailable RADHA, GUCCI E Admitting Unavailable RADHA, GUCCI E Primary Care Unavailable RADHA, GUCCI E Attending Unavailable OMLEY, BEATRICE DO Attending Unavailable OMLEY, BEATRCIE DO Admitting Unavailable OMLEY, BEATRICE DO Primary Care Unavailable RADHA, GUCCI E Admitting Unavailable RADHA, GUCCI E Primary Care Unavailable RADHA, GUCCI E Attending Unavailable MANDEL, GABBY GUDINO Attending Unavailable MANDELGABBY DO Admitting Unavailable GABBY MANDEL DO Primary Care Unavailable FLIP MARTIN MD Consulting Unavailable FLIP MRATIN MD Attending Unavailable FLIP MARTIN MD Admitting Unavailable FLIP MARTIN MD Primary Care Unavailable PROVIDER, UNKNOWN Consulting Unavailable AL, NEMR BADIE Attending Unavailable AL, NEMR BADIE Admitting Unavailable AL, NEMR BADIE Primary Care Unavailable RADHA, GUCCI E Attending Unavailable RADHA, GUCCI E Admitting Unavailable RADHA, GUCCI E Primary Care Unavailable ALICIA RODRIGUEZ MD Admitting Unavailable ALICIA [...] Care Unavailable DIDGONZALEZ ORTIZ DO Attending Unavailable CSERNYIK, CHRISTO DO Attending Unavailable CSERNYIK, CHRISTO Admitting Unavailable CSERNYIK, CHRISTO DO Primary Care Unavailable Allergies Allergy Classification Reported Allergen(s) Allergy Type Date of Onset Reaction(s) Facility Haloperidol (1 source) Haloperidol; Translations: [haloperidol] Drug Allergy Tongue swelling (finding) [facility] Penicillins (antibiotic) (1 source) Penicillin; Translations: [penicillins] Drug Allergy Weal (disorder) [facility] (10 sources) Codeine; Translations: [codeine] Drug Allergy [facility] (1 source) oxyCODONE; Translations: [oxycodone] Drug Allergy Vomitting, Nausea [facility] (20 sources) Penicillin; Translations: [penicillins] Drug Allergy Weal (disorder) [facility] (20 sources) [place] - fruit Food allergy Tongue swelling (finding), Difficulty breathing (finding) [facility] (20 sources) Haloperidol; Translations: [haloperidol] Drug Allergy 5 Tongue swelling (finding) [facility] (4 sources) Penicillins Allergy to substance 5 [facility] (1 source) Haloperidol Drug Allergy 5 [facility] (1 source) Penicillins Drug allergy (disorder) 5 [facility] (1 source) Haloperidol Drug Allergy [facility] (1 source) Penicillins Drug allergy (disorder) [facility] Medications Current Medications Medication Drug Class(es) [...] tab(s), 1 Refill(s), 08/30/22 13:02:00 EDT, Pharmacy: [facility] 1724, 167.6, cm, 08/08/22 16:51:00 EDT, Height [...] day(s), # 120 tab(s), 0 Refill(s), Pharmacy: [facility], Cervical cancer, 167.6, cm, 01/01/23 16:31:00 EST, Height, 47.7, kg, 01/01/23 16:31:00 EST, Dosing Weight Start Date: 01/21/23 Stop Date: 02/20/23 Status: Ordered Start: 12-19-2022 End: 01-18-2023 take 1 tablet by mouth every six hours acetaminophen-oxyCODONE 325 mg-5 mg oral tablet Dose = 1 tab(s), Oral, q6hr, X 30 day(s), # 120 tab(s), 0 Refill(s), Pharmacy: [facility], Cervical cancer, 167.6, cm, 11/15/22 9:52:00 EST, Height, 50, kg, 11/15/22 9:52:00 EST, Dosing Weight Start Date: 12/19/22 Stop Date: 01/18/23 Status: Ordered Start: 10-21-2022 End: 11-20-2022 take 1 tablet by mouth every six hours acetaminophen-oxyCODONE 325 mg-5 mg oral tablet Dose = 1 tab(s), Oral, q6hr, X 30 day(s), # 120 tab(s), 0 Refill(s), Pharmacy: [facility], Cervical cancer, 167.6, cm, 09/30/22 17:45:00 EST, Height, 50.4, kg, 09/30/22 17:45:00 EST, Dosing Weight Start Date: 10/21/22 Stop Date: 11/20/22 Status: Ordered Start: 09-18-2022 End: 10-18-2022 take 1 tablet by mouth every six hours acetaminophen-oxyCODONE 325 mg-5 mg oral tablet Dose = 1 tab(s), Oral, q6hr, X 30 day(s), # 120 tab(s), 0 Refill(s), Pharmacy: [facility], Cervical cancer, 167.6, cm, 08/08/22 16:51:00 EDT, Height, 52.5, kg, 08/08/22 16:51:00 EDT, Dosing Weight Start Date: 09/18/22 Stop Date: 10/18/22 Status: Ordered Start: 07-22-2022 End: 08-21-2022 take 1 tablet by mouth every six hours acetaminophen-oxyCODONE 325 mg-5 mg oral tablet Dose = 1 tab(s), Oral, q6hr, X 30 day(s), # 120 tab(s), 0 Refill(s), Pharmacy: [facility], Cervical cancer, 167.6, cm, 07/04/22 10:37:00 EDT, Height, 45.4 Start Date: 07/22/22 Stop Date: 08/21/22 Status: Ordered Start: 06-19-2022 End: 07-19-2022 take 1 tablet by mouth every six hours as needed for pain acetaminophen-oxyCODONE 325 mg-5 mg oral tablet Dose = 1 tab(s), Oral, q6hr, PRN for pain, X 30 day(s), # 120 tab(s), 0 Refill(s), Pharmacy: [facility], Cervical ca Cancer related [...] day(s), # 120 tab(s), 0 Refill(s), Pharmacy: [facility], Cervical ca Cancer related [...] day(s), # 120 tab(s), 0 Refill(s), Pharmacy: [facility], Cervical ca, 167.6, cm, [...] day(s), # 120 tab(s), 0 Refill(s), Pharmacy: [facility], Cervical ca, 167.6, cm, [...] day(s), # 180 tab(s), 0 Refill(s), Pharmacy: [facility], Cervical cancer, 167.6, cm, 05/22/21 17:26:00 EDT, Height, 45.4, kg, 05/22/21 17:26:00 EDT, Dosing Weight Start Date: 08/15/21 Stop Date: 09/14/21 Status: Ordered take 9 tablets by mo [facility] every four to six hours as needed [...] BID, # 60 tab(s), 1 Refill(s), Pharmacy: [facility], 167.6, cm, 05/22/21 17:26:00 [...] food, # 120 EA, 0 Refill(s), Pharmacy: [facility], 167.6, cm, 05/15/23 15:33:00 EDT, Height Start Date: 05/15/23 Status: Ordered cefdinir 300 mg oral capsule (2 sources) Cephalosporin Antibacterial Start: 06-04-2025 take 1 capsule [...] tab(s), 0 Refill(s), 05/17/23 6:33:00 EDT, Pharmacy: [facility], 167, cm, 04/28/23 13:10:00 EDT, Height, 63.9 Start Date: 05/07/23 Stop Date: 05/17/23 Status: Ordered Start: 01-06-2023 End: 01-10-2023 ciprofloxacin 500 mg oral ta blet Dose : 500 mg = 1 tab(s), Oral, q12h, X 4 day(s), # 9 tab(s), 0 Refill(s), 01/10/23 14:45:00 EST, Pharmacy: [facility], 167.6, cm, 01/01/23 16:31:00 EST, Height, 47.7 Start Date: 01/06/23 Stop Date: 01/10/23 Status: Ordered cyclobenzaprine hydrochloride 5 mg oral tablet (1 source) Muscle Relaxant Start: 08-16-2022 End: 08-26-2022 cyclobenzaprine 5 mg oral tablet Dose : 5 mg = 1 tab(s), Oral, TID, PRN Muscle spasm, X 10 day(s), # 30 tab(s), 0 Refill(s), 08/26/22 13:05:00 EDT, Pharmacy: [facility], 167.6, cm, 08/08/22 16:51:00 EDT, Height Start Date: 08/16/22 Stop Date: 08/26/22 Status: Ordered DAPTOmycin 500 mg injection (2 sources) Lipopeptide Antibacterial Start: 05-07-2023 End: 05-17-2023 inject 1 dose intravenously every twenty-four hours DAPTOmycin 500 mg intravenous injection Dose : 383.4 mg =, Intravenous, q24h, X 10 day(s), # 10 EA, 0 Refill(s), 05/17/23 6:32:00 EDT, Pharmacy: [facility], 167, cm, 04/28/23 13:10:00 EDT, Height, 63.9 Start Date: 05/07/23 Stop Date: 05/17/23 Status: Ordered docusate sodium 100 mg oral capsule (4 sources) Start: 10-08-2022 Colace 100 mg oral capsule Dose : 100 mg = 1 cap(s), Oral, BID, PRN as needed for constipation, # 60 cap(s), 2 Refill(s), Pharmacy: [facility], 167.6, cm, 09/30/22 17:45:00 EST, Height, kg, 09/30/22 17:45:00 EST, Dosing Weight Start Date: 10/08/22 Status: Ordered dronabinol 2.5 mg oral capsule (1 source) Cannabinoid Start: 10-08-2022 End: 10-29-2022 Marinol 2.5 mg oral capsule Dose : 2.5 mg = 1 cap(s), Oral, BID, X 21 day(s), # 42 cap(s), 0 Refill(s), 10/29/22 14:33:00 EST, Pharmacy: [facility], Cervical cancer Decreased appetite, 167.6, [...] qDay, # 30 tab(s), 5 Refill(s), [facility] 167.6, cm, 06/09/24 6:47:00 EDT, Height, kg, 06/09/24 6:47:00 EDT, Dosing Weight Start Date: 06/17/24 Status: Ordered Start: 03-16-2024 Lexapro 20 mg oral tablet Dose : 20 mg = 1 tab(s), Oral, qDay, # 30 tab(s), 2 Refill(s), Pharmacy: [facility] 167.6, cm, 03/04/24 9:28:00 EDT, Height, kg, 03/04/24 9:28:00 EDT, Dosing Weight Start Date: 03/16/24 Status: Ordered Start: 01-06-2024 Lexapro 10 mg oral tablet Dose : 10 mg = 1 tab(s), Oral, qDay, # 30 tab(s), 1 Refill(s), Pharmacy: [facility], 167.6, cm, 01/06/24 10:18:00 EST, Height, kg, 01/06/24 10:18:00 EST, Dosing Weight Start Date: 01/06/24 Status: Ordered Start: 12-08-2023 Lexapro 10 mg oral tablet Dose : 10 mg = 1 tab(s), Oral, qDay, # 30 tab(s), 1 Refill(s), Pharmacy: [facility], 167.6, cm, 12/08/23 14:57:00 EST, Height, kg, 12/08/23 14:57:00 EST, Dosing Weight Start Date: 12/08/23 Status: Ordered Start: 09-12-2023 escitalopram 1 0 mg oral tablet Dose : 10 mg = 1 tab(s), Oral, qDay, # 30 tab(s), 1 Refill(s), Pharmacy: [facility] 167.6, cm, 09/03/23 13:59:00 EDT, Height, kg, 09/03/23 13:59:00 EDT, Dosing Weight Start Date: 09/12/23 Status: Ordered estrogens, conjugated (half-way) 0.625 mg / medroxyPROGESTERone acetate 2.5 mg oral tablet (2 sources) Progestin, Estrogen Start: 02-21-2022 take 1 tablet by mouth once daily Prempro 0.625 mg-2.5 mg oral tablet Dose = 1 tab(s), Oral, qDay, # 90 tab(s), 2 Refill(s), Pharmacy: [facility], 167.6, cm, 02/21/22 15:19:00 EDT, Height Start Date: 02/21/22 Status: Ordered HYDROmorphone hydrochloride 2 mg oral tablet (2 sources) Opioid Agonist Start: 08-16-2022 End: 08-21-2022 Dilaudid 2 mg oral tablet Dose : 2 mg = 1 tab(s), Oral, q4h, PRN as needed for pain, X 5 day(s), # 28 tab(s), 0 Refill(s), 08/21/22 13:06:00 EDT, Pharmacy: [facility], Cancer related pain History of radiation therapy, 167.6, cm, 08/08/22 16:51:00 EDT, Height, 52.5 Start Date: 08/16/22 Stop Date: 08/21/22 Status: Ordered Start: 04-19-2022 End: 04-26-2022 Dilaudid 2 mg oral tablet Do se : 1 mg = 0.5 tab(s), Oral, q4h, PRN as needed for pain, # 28 tab(s), 0 Refill(s), Pharmacy: [facility], Cervical cancer Cancer related [...] hours, # 30 patch(es), 0 Refill(s), Pharmacy: [facility], 167.6, cm, 08/08/22 16:51:00 [...] anxiety, # 60 tab(s), 1 Refill(s), Pharmacy: [facility] Palliative care patient THO (generalized anxiety disorder), 167.6, cm, 06/21/24 11:41:00 EDT, Height, 62.2, kg, 06/21/24 11:41:00 EDT, Dosing Weight Start Date: 07/15/24 Stop Date: 09/13/24 Status: Ordered Start: 05-14-2024 End: 07-13-2024 Ativan 1 mg oral tablet Dose : 1 mg = 1 tab(s), Oral, BID, PRN as needed for anxiety, # 60 tab(s), 1 Refill(s), Pharmacy: [facility] Palliative care patient THO (generalized anxiety disorder), 167.6, cm, 04/28/24 11:26:00 EDT, Height, 62.5, kg, 04/28/24 11:26:00 EDT, Dosing Weight Start Date: 05/14/24 Stop Date: 07/13/24 Status: Ordered Start: 01-06-2024 End: 06-16-2024 Ativan 1 mg oral tablet Dose : 1 mg = 1 tab(s), Oral, BID, PRN as needed for anxiety, # 60 tab(s), 0 Refill(s), Pharmacy: [facility], Palliative care patient THO (generalized anxiety disorder), 167.6, cm, 03/04/24 9:28:00 EDT, Height, 60, kg, 03/04/24 9:28:00 EDT, Dosing Weight Start Date: 03/19/24 Stop Date: 04/18/24 Status: Ordered Start: 11-19-2023 LORazepam 1 mg oral tablet Dose : 1 mg = 1 tab(s), Oral, BID, # 60 tab(s), 0 Refill(s), [facility] Cancer related pain History of cervical cancer, 167.6, cm, 11/19/23 9:33:00 EST, Height, 61.3, kg, 11/19/23 9:33:00 EST, Dosing Weight Start Date: 11/19/23 Status: Ordered Start: 10-20-2023 LORazepam 1 mg oral tablet Dose : 1 mg = 1 tab(s), Oral, BID, # 60 tab(s), 0 Refill(s), Pharmacy: [facility] Cancer related pain History of cervical cancer, 167.6, cm, 09/03/23 13:59:00 EDT, Height, 63.6, kg, 09/03/23 13:59:00 EDT, Dosing Weight Start Date: 10/20/23 Status: Ordered Start: 08-21-2023 LORazepam 1 mg oral tablet Dose : 1 mg = 1 tab(s), Oral, BID, # 60 tab(s), 1 Refill(s), Pharmacy: [facility] Cancer related pain History of cervical cancer, [...] 0 Refill(s), 07/25/23 1:35:00 PM EDT, Pharmacy: [facility] Anxiety Cervical ca, 167.6, cm, 07/09/23 7:02:00 EDT, Height, 62.8, kg, 07/09/23 7:02:00 EDT, Dosing Weight Start Date: 07/16/23 Stop Date: 07/25/23 Status: Ordered Start: 09-24-2021 End: 03-14-2023 Ativan 1 mg oral tablet Dose : 1 mg = 1 tab(s), Oral, TID, PRN PRN as needed for anxiety, X 30 day(s), # 90 tab(s), 0 Refill(s), 03/14/23 9:57:00 EDT, Pharmacy: [facility], Cervical cancer Anxiety, 167.6, cm, 01/01/23 16:31:00 EST, Height, 47.7, kg, 01/01/23 16:... Start Date: 02/12/23 Stop Date: 03/14/23 Status: Ordered Start: 06-22-2021 End: 09-20-2021 Ativan 1 mg oral tablet Dose : 1 mg = 1 tab(s), Oral, TID, X 30 day(s), # 90 tab(s), 2 Refill(s), 09/20/21 15:11:00 EST, Pharmacy: [facility], Cervical cancer, 167.6, cm, 05/22/21 17:26:00 EDT, Height, 45.4, kg, 05/22/21 17:26:00 EDT, Dosing Weight Start Date: 06/22/21 Stop Date: 09/20/21 Status: Ordered megestrol 40 mg/mL oral suspension (1 source) Start: 05-17-2021 take 1 dose by mouth once daily megestrol 40 mg/mL oral suspension Dose : 800 mg = 20 mL, Oral, Daily, # 600 mL, 2 Refill(s), Pharmacy: [facility], 167.6, cm, 05/17/21 14:03:00 [...] 1 Refill(s), 12/19/23 10:06:00 AM EST, Pharmacy: [facility] 167.6, cm, 11/19/23 9:33:00 EST, Height, kg, 11/19/23 9:33:00 EST, Dosing Weight Start Date: 11/19/23 Stop Date: 12/19/23 Status: Ordered mirtazapine 15 mg oral table t (10 sources) Start: 07-04-2023 mirtazapine 15 mg oral tablet Dose : 15 mg = 1 tab(s), Oral, qDay, # 30 tab(s), 0 Refill(s), Pharmacy: [facility] 167.6, cm, 06/24/23 13:14:00 EDT, Height, kg, 06/24/23 13:14:00 EDT, Dosing Weight Start Date: 07/04/23 Status: Ordered Start: 06-03-2023 mirtazapine 15 mg oral tablet Dose : 15 mg = 1 tab(s), Oral, qDay, # 30 tab(s), 0 Refill(s), Pharmacy: [facility], 167.6, cm, 05/15/23 15:33:00 EDT, Height, kg, 05/15/23 15:33:00 EDT, Dosing Weight Start Date: 06/03/23 Status: Ordered Start: 04-28-2023 mirtazapine 15 mg oral tablet Dose : 15 mg = 1 tab(s), Oral, qDay Start Date: 04/28/23 Status: Ordered Start: 01-06-2023 mirtazapine 15 mg oral tablet Dose : 15 mg = 1 tab(s), Oral, qDay, # 30 tab(s), 3 Refill(s), Pharmacy: [facility], 167.6, cm, 01/01/23 16:31:00 [...] q12h, # 60 tab(s), 0 Refill(s), Pharmacy: [facility] Cervical cancer, 167.6, cm, 05/15/23 15:33:00 EDT, [...] q12h, # 28 tab(s), 0 Refill(s), Pharmacy: [facility], Cervical cancer, 167, cm, 04/28/23 13:10:00 EDT, Height, 63.9 Start Date: 05/07/23 Stop Date: 05/21/23 Status: Ordered Start: 03-04-2023 take 1 tablet by saloni th every hour, then take 1 tablet by mouth every twelve hours MS Contin 30 mg/8-12 hrs oral tablet, extended release Dose : 30 mg = 1 tab(s), Oral, q12h, # 60 tab(s), 0 Refill(s), Pharmacy: [facility], Cervical cancer Cancer related pain, 167.6, cm, 02/23/23 21:09:00 EDT, Height, 55.7 Start Date: 03/04/23 Status: Ordered Start: 10-08-2022 End: 10-29-2022 take 1 tablet by mouth every hour, then take 1 tablet by mouth every twelve hours MS Contin 30 mg/8-12 hrs oral tablet, extended release Dose : 30 mg = 1 tab(s), Oral, q12h, # 42 tab(s), 0 Refill(s), Pharmacy: [facility], Cervical cancer, 167.6, cm, 09/30/22 17:45:00 EST, Height, 50.4 Start Date: 10/08/22 Stop Date: 10/29/22 Status: Ordered naproxen 250 mg oral tablet (4 sources) Nonsteroidal Anti-inflammatory Drug Start: 08-16-2022 naproxen 250 mg oral tablet Dose : 250 mg = 1 tab(s), Oral, BID, # 60 tab(s), 0 Refill(s), Pharmacy: [facility], 167.6, cm, 08/08/22 16:51:00 EDT, Height Start Date: 08/16/22 Status: Ordered nitrofurantoin, macrocrystals 25 mg / nitrofurantoin, monohydrate 75 mg oral capsule (1 source) Nitrofuran Antibacterial Start: 08-16-2022 End: 08-19-2022 Macrobid 100 mg oral capsule Dose : 100 mg = 1 cap(s), Oral, BID, Take with food, X 3 day(s), # 6 cap(s), 0 Refill(s), 08/19/22 13:08:00 EDT, Pharmacy: [facility], 167.6, cm, 08/08/22 16:51:00 EDT, Height, 52.5 Start Date: 08/16/22 Stop Date: 08/19/22 Status: Ordered Normal saline (14 sources) Start: 11-21-2022 Normal Saline Flush 0.9% injectable solution Dose : 0.09 gram(s) = 10 mL, IR Drain, Daily, # 300 mL, 12 Refill(s), Pharmacy: [facility], 167.6, cm, 11/15/22 9:52:00 EST, Height, kg, 11/15/22 9:52:00 EST, Dosing Weight Start Date: 11/21/22 Status: Ordered Start: 10-09-2022 Normal Saline Flush 0.9% injectable solution Dose : 0.09 gram(s) = 10 mL, IR Drain, Daily, # 300 mL, 12 Refill(s), Pharmacy: [facility], 167.6, cm, 09/30/22 17:45:00 EST, Height, kg, 09/30/22 17:45:00 EST, Dosing Weight Start Date: 10/09/22 Status: Ordered Start: 10-08-2022 Normal Saline Flush 0.9% injectable solution Dose : 0.09 gram(s) = 10 mL, IR Drain, Daily, # 300 mL, 12 Refill(s), Pharmacy: [facility], 167.6, cm, 09/30/22 17:45:00 EST, Height, kg, 09/30/22 17:45:00 EST, Dosing Weight Start Date: 10/08/22 Status: Ordered Start: 04-12-2021 Normal Saline Flush 0.9% injectable solution Dose : 0.09 gram(s) = 10 mL, IR Drain, Daily, # 300 mL, 12 Refill(s), Pharmacy: [facility], 167.6, cm, 04/12/21 10:36:00 EDT, Height, kg, 04/12/21 10:36:00 EDT, Dosing Weight Start Date: 04/12/21 Status: Ordered OLANZapine 5 mg oral tablet (3 sources) Atypical Antipsychotic Start: 06-21-2022 OLANZap ine 5 mg oral tablet Dose : 5 mg = 1 tab(s), Oral, qHS, # 90 tab(s), 3 Refill(s), Pharmacy: [facility], 167.6, cm, 05/23/22 11:20:00 EDT, Height, kg, 05/23/22 11:20:00 EDT, Dosing Weight Start Date: 06/21/22 Status: Ordered Start: 04-19-2022 OLANZapine 5 m g oral tablet Dose : 5 mg = 1 tab(s), Oral, qHS, # 30 tab(s), 1 Refill(s), Pharmacy: [facility], 167.6, cm, 04/14/22 22:09:00 EDT, Height Start Date: 04/19/22 Status: Ordered ondansetron 4 mg disintegrating oral tablet (20 sources) 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 Start: 06-04-2025 take 1 tablet by mouth every eight hours as needed for nausea Ondansetron 4 mg tablet,disintegrating Active 4 mg PO EVERY 8 HOURS NEEDED as needed for Nausea 10 0 June 04, 2025 12:00am Start: 12-10-2024 take [...] VOMITING, # 60 tab(s), 2 Refill(s), Pharmacy: [facility] 167.6, cm, 05/24/24 11:29:00 EDT, Height, kg, 05/24/24 11:29:00 EDT, Dosing Weight Start Date: 05/24/24 Status: Ordered Start: 03-16-2024 End: 04-30-2024 Zofran 4 mg oral tablet Dose : 4 mg = 1 tab(s), Oral, q8h, PRN Nausea/Vomiting, X 15 day(s), # 45 tab(s), 2 Refill(s), 04/30/24 4:58:00 PM EDT, Pharmacy: [facility] 167.6, cm, 03/04/24 9:28:00 EDT, Height, [...] 4 Refill(s), 02/07/24 9:38:00 AM EDT, Pharmacy: [facility] 167.6, cm, 11/19/23 9:33:00 EST, Height, kg, 11/19/23 9:33:00 EST, Dosing Weight Start Date: 11/24/23 Stop Date: 02/07/24 Status: Ordered Start: 04-28-2023 End: 10-30-2023 ondansetron 4 mg oral tablet Dose : 4 mg = 1 tab(s), Oral, q6h, PRN Nausea/Vomiting, # 60 tab(s), 2 Refill(s), Pharmacy: [facility] 167.6, cm, 09/03/23 13:59:00 EDT, Height, kg, 09/03/23 13:59:00 EDT, Dosing Weight Start Date: 09/15/23 Stop Date: 10/30/23 Status: Ordered Start: 01-23-2023 End: 02-22-2023 ondansetron 4 mg oral tablet Dose : 4 mg = 1 tab(s), Oral, q6h, PRN Nausea/Vomiting, # 120 tab(s), 0 Refill(s), Pharmacy: [facility], 167.6, cm, 01/01/23 16:31:00 EST, Height Start Date: 01/23/23 Stop Date: 02/22/23 Status: Ordered Start: 10-08-2022 End: 12-07-2022 Zofran 4 mg oral tablet Dose : 4 mg = 1 tab(s), Oral, q6h, PRN Nausea/Vomiting, # 60 tab(s), 1 Refill(s), Pharmacy: [facility], Cervical cancer, 167.6, cm, 09/30/22 17:45:00 EST, Height, kg, 09/30/22 17:45:00 EST, Dosing Weight Start Date: 11/06/22 Status: Ordered Start: 07-19-2022 End: 11-15-2022 Zofran 4 mg oral tablet Dose : 4 mg = 1 tab(s), Oral, q6h, PRN Nausea/Vomiting, Take 20-30 minutes prior to taking pain medication, # 120 tab(s), 1 Refill(s), Pharmacy: [facility], 167.6, cm, 07/04/22 10:37:00 EDT, Height, kg, 07/04/22 10:37:00 EDT, Dosing Weight Start Date: 07/19/22 Stop Date: 09/17/22 Status: Ordered Start: 03-14-2022 End: 06-18-2022 Zofran 4 mg oral tablet Dose : 4 mg = 1 tab(s), Oral, q6h, PRN Nausea/Vomiting, Take 20-30 minutes prior to taking pain medication, # 120 tab(s), 1 Refill(s), Pharmacy: [facility], 167.6, cm, 04/14/22 22:09:00 EDT, Height, kg, 04/14/22 22:09:00 EDT, Dosing Weight Start Date: 04/19/22 Stop Date: 06/18/22 Status: Ordered Start: 11-05-2021 End: 06-17-2022 take 1 dose by mouth every six hours ondansetron 4 mg oral disintegrating strip Dose : 4 mg = 1 film, Oral, q6h, X 30 day(s), # 30 film, 4 Refill(s), 06/17/22 12:00:00 EDT, Pharmacy: [facility], 167.6, cm, 01/16/22 19:29:00 EDT, Height, kg, 01/16/22 19:29:00 EDT, Dosing Weight Start Date: 01/18/22 Stop Date: 06/17/22 Status: Ordered Start: 08-07-2021 End: 10-06-2021 take 1 dose by mouth every six hours ondansetron 4 mg oral disintegrating strip Dose : 4 mg = 1 film, Oral, q6h, X 30 day(s), # 30 film, 1 Refill(s), 10/06/21 11:19:00 EST, Pharmacy: [facility], 167.6, cm, 05/22/21 17:26:00 EDT, Height, kg, 05/22/21 17:26:00 EDT, Dosing Weight Start Date: 08/07/21 Stop Date: 10/06/21 Status: Ordered take 9 tablets by mo uth every four hours as needed Zofran 4 [...] today, # 240 tab(s), 0 Refill(s), Pharmacy: [facility] Cervical ca Cancer related pain, 164, cm, [...] pain, # 240 tab(s), 0 Refill(s), Pharmacy: [facility] Cervical ca Cancer related pain, 165.1, [...] 03/11/25, # 240 tab(s), 0 Refill(s), Pharmacy: [facility] Cervical ca Cancer related pain, 165.1, [...] pain, # 240 tab(s), 0 Refill(s), Pharmacy: [facility] Cervical ca Cancer related pain, 167.6, cm, [...] today, # 240 tab(s), 0 Refill(s), Pharmacy: [facility] Cervical ca Cancer related pain, 167.6, cm, 07/19/24 11:26:00 EDT, Height, 60.9, kg, 07/19/24 11:26:00 EDT, Dosing Weight Start Date: 07/19/24 Status: Ordered Start: 05-24-2024 oxyCODONE 5 mg oral tablet ( IMMEDIATE release ) Dose : 5 mg = 1 tab(s), Oral, q6hr, PRN for pain, # 120 tab(s), 0 Refill(s), Pharmacy: [facility] Cancer related pain History of cervical cancer, 167.6, cm, 05/24/24 11:29:00 EDT, Height, 61.5, kg, 05/24/24 11:29:00 EDT, Dosing Weight Start Date: 05/24/24 Status: Ordered Start: 04-01-2024 oxyCODONE 5 mg oral tablet ( IMMEDIATE release ) Dose : 10 mg = 2 tab(s), Oral, q8h, PRN for pain, # 150 tab(s), 0 Refill(s), Pharmacy: [facility] Cancer related pain History of cervical cancer, 167.6, cm, 03/04/24 9:28:00 EDT, Height, 60, kg, 03/04/24 9:28:00 EDT, Dosing Weight Start Date: 04/01/24 Status: Ordered Start: 02-04-2024 oxyCODONE 5 mg oral tablet ( IMMEDIATE release ) Dose : 10 mg = 2 tab(s), Oral, q8h, PRN for pain, # 150 tab(s), 0 Refill(s), Pharmacy: [facility] Cancer related pain History of cervical cancer, 167.6, cm, 03/04/24 9:28:00 EDT, Height, 60, kg, 03/04/24 9:28:00 EDT, Dosing Weight Start Date: 03/04/24 Status: Ordered Start: 01-06-2024 oxyCODONE 10 m g oral tablet Dose : 10 mg = 1 tab(s), Oral, q8h, PRN for pain, # 90 tab(s), 0 Refill(s), Pharmacy: [facility], Cancer related pain History of cervical cancer, 167.6, cm, 01/06/24 10:18:00 EST, Height, 58.3, kg, 01/06/24 10:18:00 EST, Dosing Weight Start Date: 01/06/24 Status: Ordered Start: 12-08-2023 oxyCODONE 10 m g oral tablet Dose : 10 mg = 1 tab(s), Oral, q6h, PRN for pain, # 120 tab(s), 0 Refill(s), Pharmacy: [facility], Cancer related pain History of cervical cancer, 167.6, cm, 12/08/23 14:57:00 EST, Height, 58.2, kg, 12/08/23 14:57:00 EST, Dosing Weight Start Date: 12/08/23 Status: Ordered Start: 11-20-2023 OxyContin 10 m g oral tablet, extended release Dose : 10 mg = 1 tab(s), Oral, q12h, # 60 tab(s), 0 Refill(s), Pharmacy: [facility] Cervical ca, 167.6, cm, 11/19/23 9:33:00 EST, Height, 61.3, kg, 11/19/23 9:33:00 EST, Dosing Weight Start Date: 11/20/23 Status: Ordered Start: 11-05-2023 oxyCODONE 15 m g oral tablet ( IMMEDIATE release ) Dose : 15 mg = 1 tab(s), Oral, q6hr, PRN as needed for pain, # 120 tab(s), 0 Refill(s), Pharmacy: [facility] Cervical cancer, 167.6, cm, 10/22/23 10:21:00 EST, Height, 61.4, kg, 10/22/23 10:21:00 EST, Dosing Weight Start Date: 11/05/23 Status: Ordered Start: 10-16-2023 OxyContin 15 m g oral tablet, extended release Dose : 15 mg = 1 tab(s), Oral, BID, # 60 tab(s), 0 Refill(s), Pharmacy: [facility] Cancer related pain Cervical ca, 167.6, cm, 09/03/23 13:59:00 EDT, Height, 63.6, kg, 09/03/23 13:59:00 EDT, Dosing Weight Start Date: 10/16/23 Status: Ordered Start: 09-12-2023 oxyCODONE 15 m g oral tablet ( IMMEDIATE release ) Dose : 15 mg = 1 tab(s), Oral, q6hr, may fill on 10/05/23, # 120 tab(s), 0 Refill(s), Pharmacy: [facility] Cervical cancer, 167.6, cm, 09/03/23 13:59:00 EDT, Height, 63.6, kg, 09/03/23 13:59:00 EDT, Dosing Weight Start Date: 09/12/23 Status: Ordered Start: 09-12-2023 OxyContin 15 m g oral tablet, extended release Dose : 15 mg = 1 tab(s), Oral, BID, # 60 tab(s), 0 Refill(s), Pharmacy: [facility] Cancer related pain Cervical ca, 167.6, cm, 09/03/23 13:59:00 EDT, Height, 63.6, kg, 09/03/23 13:59:00 EDT, Dosing Weight Start Date: 09/12/23 Status: Ordered Start: 08-21-2023 oxyCODONE 10 m g oral tablet ( IMMEDIATE release ) Dose : 10 mg = 1 tab(s), Oral, q6h, PRN as needed for pain, # 120 tab(s), 0 Refill(s), Pharmacy: [facility] Cancer related pain History of cervical cancer, 167.6, cm, 08/21/23 15:13:00 EDT, Height, 64.2, kg, 08/21/23 15:13:00 EDT, Dosing Weight Start Date: 08/21/23 Status: Ordered Start: 08-06-2023 OxyContin 15 m g oral tablet, extended release Dose : 15 mg = 1 tab(s), Oral, BID, # 60 tab(s), 0 Refill(s), Pharmacy: [facility] Cancer related pain Cervical ca, 167.6, cm, 07/30/23 11:18:00 EDT, Height, 62.6, kg, 07/30/23 11:18:00 EDT, Dosing Weight Start Date: 08/06/23 Status: Ordered Start: 07-24-2023 End: 08-03-2023 oxyCODONE 5 mg oral tablet ( IMMEDIATE release ) Dose : 15 mg = 3 tab(s), Oral, q4hr, PRN as needed for pain, # 180 tab(s), 0 Refill(s), Pharmacy: [facility] Cancer related pain Cervical ca, 167.6, cm, 07/24/23 10:14:00 EDT, Height, 67.8, kg, 07/24/23 10:14:00 EDT, Dosing Weight Start Date: 07/24/23 Stop Date: 08/03/23 Status: Ordered Start: 07-15-2023 OxyContin 15 m g oral tablet, extended release Dose : 15 mg = 1 tab(s), Oral, BID, # 60 tab(s), 0 Refill(s), Pharmacy: [facility] Cancer related pain Cervical ca, 167.6, cm, 07/09/23 7:02:00 EDT, Height, 62.8, kg, 07/09/23 7:02:00 EDT, Dosing Weight Start Date: 07/15/23 Status: Ordered Start: 07-15-2023 End: 07-22-2023 oxyCODONE 5 mg oral tablet ( IMMEDIATE release ) Dose : 15 mg = 3 tab(s), Oral, q4hr, PRN as needed for pain, # 126 tab(s), 0 Refill(s), Pharmacy: [facility] Cancer related pain Cervical ca, 167.6, cm, [...] 0 Refill(s), 07/26/23 11:49:00 AM EDT, Pharmacy: [facility] Cervical cancer, 167.6, cm, 06/24/23 13:14:00 EDT, Height, 64, kg, 06/24/23 13:14:00 EDT, Dosing Weight Start Date: 06/26/23 Stop Date: 07/26/23 Status: Ordered Start: 05-07-2023 End: 05-17-2023 oxyCODONE 10 mg oral tablet ( IMMEDIATE release ) Dose : 10 mg = 1 tab(s), Oral, q4h, PRN Pain, X 5 day(s), # 30 tab(s), 0 Refill(s), 05/17/23 10:46:00 EDT, Pharmacy: [facility], Cervical cancer, 167, cm, [...] tab(s), 0 Refill(s), 04/03/23 8:11:00 EDT, Pharmacy: [facility], Cervical cancer Cancer related pain, 167.6, cm, 02/23/23 21:09:00 EDT, Height, 55.7 Start Date: 03/04/23 Stop Date: 04/03/23 Status: Ordered Start: 10-08-2022 End: 10-29-2022 oxyCODONE 10 mg oral tablet ( IMMEDIATE release ) Dose : 10 mg = 1 tab(s), Oral, q4h, PRN abdominal discomfort, X 21 day(s), # 126 tab(s), 0 Refill(s), 10/29/22 14:33:00 EST, Pharmacy: [facility], Cervical cancer, 167.6, cm, 09/30/22 17:45:00 EST, Height, 50.4 Start Date: 10/08/22 Stop Date: 10/29/22 Status: Ordered pantoprazole 40 mg delayed release oral tablet (2 sources) Proton Pump Inhibitor Start: 11-19-2023 pantoprazole 40 mg o ral enteric coated tablet Dose : 40 mg = 1 tab(s), Oral, qDayAC, # 30 tab(s), 1 Refill(s), Pharmacy: [facility] 167.6, cm, 11/19/23 9:33:00 EST, Height, kg, 11/19/23 9:33:00 EST, Dosing Weight Start Date: 11/19/23 Status: Ordered potassium chloride 20 meq oral tablet (1 source) Start: 04-28-2024 Potassium Chlo ride (Jgl-[employer] M20) 20 mEq oral tablet, extended release [...] tab(s), 1 Refill(s), 06/18/22 15:02:00 EDT, Pharmacy: [facility], 167.6, cm, 04/14/22 22:09:00 EDT, Height Start Date: 04/19/22 Stop Date: 06/18/22 Status: Ordered sertraline 25 mg oral tablet (2 sources) Serotonin Reuptake Inhibitor Start: 08-21-2023 Zoloft 25 mg oral tablet Dose : 25 mg = 1 tab(s), Oral, qDay, # 30 tab(s), 1 Refill(s), Pharmacy: [facility] 167.6, cm, 08/21/23 15:13:00 EDT, Height, kg, 08/21/23 15:13:00 EDT, Dosing Weight Start Date: 08/21/23 Status: Ordered tamsulosin hydrochloride 0.4 mg oral capsule (2 sources) alpha-Adrenergic Linsey Start: 07-19-2024 tamsulosin 0.4 mg or al capsule Dose : 0.4 mg = 1 cap(s), Oral, BID, # 30 cap(s), 2 Refill(s), Pharmacy: [facility] 167.6, cm, 07/19/24 11:26:00 EDT, Height, [...] qHS, # 30 cap(s), 0 Refill(s), Pharmacy: [facility], Cervical cancer, 167.6, cm, 05/15/23 15:33:00 EDT, Height, 65.9, kg, 05/15/23 15:33:00 EDT, Dosing Weight Start Date: 06/09/23 Stop Date: 07/09/23 Status: Ordered Start: 04-28-2023 End: 06-07-2023 take 1 capsule by mouth once daily at bedtime gabapentin 300 mg oral capsule 1 cap(s), Oral, qHS, # 30 cap(s), 30, 0 Refill(s), Pharmacy: [facility], 167, cm, 04/28/23 13:10:00 [...] nausea/vomiting, # 40 supp, 0 Refill(s), Pharmacy: [facility], 167.6, cm, 08/08/22 16:51:00 EDT, Height Start Date: 08/16/22 Status: Ordered sulfamethoxazole 800 mg / trimethoprim 160 mg oral tablet (15 sources) Dihydrofolate Reductase Inhibitor Antibacterial, Sulfonamide Antimicrobial [...] day(s), # 60 tab(s), 0 Refill(s), Pharmacy: [facility] 165.1, cm, 03/08/25 14:18:00 EDT, Height, [...] day(s), # 10 tab(s), 0 Refill(s), Pharmacy: [facility], 167.6, cm, 01/01/23 16:31:00 [...] Servetas, Shira Start: 14-Jul-2021 Generic Substitution Allowed Problems Active [...] (ESBL) resistance] Episodic Calculus of urinary tract (17 sources) Kidney stone; Translations: [Ureteric stone] Onset: [...] 04-15-2022 Episodic Genitourinary symptoms and ill-defined conditions (14 sources) Urostomy present; Translations: [Other artificial openings [...] Episodic Other diseases of kidney and ureters (4 sources) Occlusion of ureter; 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 Comment on above: Performed By: #### M 100.2200 #### [facility] [address] [place], [place], [id number] Absolute lymphocyte countOrd ered By: Yeison Webber on 06-05-2025 Lymphocytes Auto (Unsp spec) [#/Vol] 2.66 10*3/uL 0.83-4.51 [facility] Absolute neutrophil countOrd ered By: Yeison Webber on 06-05-2025 Neutrophils (Bld) [#/Vol] 6.2 10*3/uL 2.0-7.7 [facility] Anion gap in Serum or Plasma Ordered By: Yeison Webber on 06-05-2025 Anion gap [Moles/Vol] 12 mmol/L 5-15 [facility] Automated lymphocyte count a s percentage of total leukocytesOrdered By: Yeison Webber on 06-05-2025 Lymphocytes/100 WBC Auto (Unsp spec) 27.1 % 19-41 [facility] BUN/creatinine ratioOrdered By: Yeison Webber on 06-05-2025 Urea nitrogen/Creatinine [Mass ratio] 10.3 mg/mg 10- [facility] Basic Metabolic Profile (BMP )on 06-05-2025 BUN/CRE 10.3 RATIO Normal - [facility] Comment on above: Performed By: #### L 100.0100, L500.2500 #### [facility] [address] [place], [place], [id number] Calcium [Mass/Vol] 8.8 mg/dL Normal 7.6-11.0 [facility] Comment on above: Performed By: #### L 100.0100, L500.2500 #### [facility] [address] [place], [address] Chloride [Moles/Vol] 103 mmol/L Normal 98-108 [facility] Comment on above: Performed By: #### L 100.0100, L500.2500 #### [facility] [address] [place], [address] CO2 [Moles/Vol] 21.5 mmol/L Normal 21.0-32.0 [facility] Comment on above: Performed By: #### L 100.0100, L500.2500 #### [facility] [address] [place], [address] Creatinine [Mass/Vol] 0.97 mg/dL Normal 0.70-1.20 [facility] Comment on above: Performed By: #### L 100.0100, L500.2500 #### [facility] [address] [place], [address] ECRCL 70.00 ml/min Normal 50-250 [facility] Comment on above: Performed By: #### L 100.0100, L500.2500 #### [facility] [address] [place], [address] GAP 12 Normal 5-15 [facility] Comment on above: Performed By: #### L 100.0100, L500.2500 #### [facility] [address] [place], [address] GFR/1.73 sq M.predicted among non-blacks MDRD (S/P/Bld) [Vol rate/Area] 77 mL/min/{1.73_m2} Normal >60 [facility] Comment on above: Result Comment: mL/m in/1.73m2 CKD-EPI Creatinine Equation (2020) Performed By: #### L 100.0100, L500.2500 #### [facility] [address] [place], [address] Glucose [Mass/Vol] 118 mg/dL High 70-99 [facility] Comment on above: Performed By: #### L 100.0100, L500.2500 #### [facility] [address] [place], [address] Potassium [Moles/Vol] 4.3 mmol/L Normal 3.3-5.1 [facility] Comment on above: Performed By: #### L 100.0100, L500.2500 #### [facility] [address] [place], [address] Sodium [Moles/Vol] 137 mmol/L Normal 133-145 [facility] Comment on above: Performed By: #### L 100.0100, L500.2500 #### [facility] [address] [place], [address] Urea nitrogen [Mass/Vol] 10 mg/dL Normal 4-19 [facility] Comment on above: Performed By: #### L 100.0100, L500.2500 #### [facility] [address] [place], [address] Basophil percentageOrdered B y: Yeison Webber on 06-05-2025 Basophils/100 WBC (Bld) 0.7 % 0-1 [facility] CBC + DIFFon 06-05-2025 Baso # 0.04 x10EE3/UL Normal 0.00 - 0.10 [facility] Comment on above: Performed By: #### 2 [id number] ####[facility],[address] [place] [address] Basophils/100 WBC (Bld) 0.4 % Normal 0.0 - 2.0 [facility] Comment on above: Performed By: #### 2 [id number] ####[facility],[address] [place], [place] [id number] CBC + DIFF Normal [facility] Comment on above: Result Comment: CBC- COMPLETE BLOOD COUNT Performed By: #### 2 [id number] ####[facility],[address] [place] [address] EO # 0.36 x10EE3/UL Normal 0.00 - 0.50 [facility] Comment on above: Performed By: #### 2 [id number] ####[facility],[address] [place] [address] Eosinophils/100 WBC (Bld) 3.2 % Normal 0.0 - 7.0 [facility] Comment on above: Performed By: #### 2 [id number] ####[facility],[address] [place] [address] Erythrocyte distribution width (RBC) [Ratio] 14.0 % Normal 12.0 - 15.6 [facility] Comment on above: Performed By: #### 2 [id number] ####[facility],[address] [place] [address] Hematocrit (Bld) [Volume fraction] 36.2 % Normal 34.0 - 46.0 [facility] Comment on above: Performed By: #### 2 [id number] ####[facility],[address] [place], [place] [id number] Hemoglobin (Bld) [Mass/Vol] 12.2 g/dL Normal 12.0 - 16.0 [facility] Comment on above: Performed By: #### 2 [id number] ####[facility],[address] [place] [address] Lymph # 2.05 x10EE3/UL Normal 0.80 - 2.80 [facility] Comment on above: Performed By: #### 2 [id number] ####[facility],[address] [place], [place] [id number] Lymphocytes/100 WBC (Bld) 18.2 % Low 20.0 - 45.0 [facility] Comment on above: Performed By: #### 2 [id number] ####[facility],[address] [place] [address] MANUAL DIFF N/A Normal [facility] Comment on above: Performed By: #### 2 [id number] ####[facility],[address] [place] [address] MCH (RBC) [Entitic mass] 33 pg Normal 27 - 33 [facility] Comment on above: Performed By: #### 2 [id number] ####[facility],[address] [place] [address] MCHC 34 X10 3 Normal 32 - 36 [facility] Comment on above: Performed By: #### 2 [id number] ####[facility],[address] [place] [address] MCV (RBC) [Entitic vol] 99 fL Normal 80 - 99 [facility] Comment on above: Performed By: #### 2 [id number] ####[facility],[address] [place] [address] [place] # 0.97 x10EE3/UL Normal 0.20 - 1.00 [facility] Comment on above: Performed By: #### 2 [id number] ####[facility],[address] [place] [address] MONOS % 8.6 % Normal 0.0 - 10.0 [facility] Comment on above: Performed By: #### 2 [id number] ####[facility],[address] [place] [address] Morphology Efra (Bld) [Interp] N/A Normal [facility] Comment on above: Performed By: #### 2 [id number] ####[facility],[address] [place] [address] Neut # 7.85 x10EE3/UL High 1.50 - 7.10 [facility] Comment on above: Performed By: #### 2 [id number] ####[facility],[address] [place] [address] Neutrophils/100 WBC (Bld) 69.6 % Normal 46.0 - 76.0 [facility] Comment on above: Performed By: #### 2 31501 ####[facility],[address] [place] [address] PLATELET 371 x10EE3/UL Normal 150 - 450 [facility] Comment on above: Performed By: #### 2 [id number] ####[facility],[address] [place] [address] Platelet mean volume (Bld) [Entitic vol] 7.3 fL Normal 6.6 - 10.5 [facility] Comment on above: Result Comment: AUTO MATED DIFFERENTIAL Performed By: #### 2 [id number] ####[facility],[address] [place] [address] RBC 3.66 x 10EE6/UL Low 4.10 - 5.30 [facility] Comment on above: Performed By: #### 2 [id number] ####[facility],[address] [place] [address] WBC 11.3 x 10EE3/UL High 4.5 - 10.8 [facility] Comment on above: Performed By: #### 2 [id number] ####[facility],[address] [place] [address] CBC W/Diff, Automatedon 08-0 3-2024 Absolute Lymph 2.66 X10 3/uL Normal 0.83-4.51 [facility] Comment on above: Performed By: #### L 100.0100, L500.2500 #### [facility] [address] [place], [address] Absolute Neut 6.2 X10 3/uL Normal 2.0-7.7 [facility] Comment on above: Performed By: #### L 100.0100, L500.2500 #### [facility] [address] [place], [address] Basophils/100 WBC (Bld) 0.7 % Normal 0-1 [facility] Comment on above: Performed By: #### L 100.0100, L500.2500 #### [facility] [address] [place], [address] Eosinophils/100 WBC (Bld) 2.2 % Normal 0-5 [facility] Comment on above: Performed By: #### L 100.0100, L500.2500 #### [facility] [address] [place], [address] Erythrocyte distribution width (RBC) [Ratio] 15.0 % High 11.6-14.6 [facility] Comment on above: Performed By: #### L 100.0100, L500.2500 #### [facility] [address] [place], [address] Hematocrit (Bld) [Volume fraction] 33.0 % Low 37-47 [facility] Comment on above: Performed By: #### L 100.0100, L500.2500 #### [facility] [address] [place], [address] Hemoglobin (Bld) [Mass/Vol] 11.2 g/dL Low 12.0-15.0 [facility] Comment on above: Performed By: #### L 100.0100, L500.2500 #### [facility] [address] [place], [address] IG% 0.500 Normal 0.0-0.9 [facility] Comment on above: Result Comment: IG% - Immature Granulocytes (promyelocytes, myelocytes and metamyelocytes) > 1% indicates that a LEFT SHIFT is Present. Performed By: #### L 100.0100, L500.2500 #### [facility] [address] [place], [address] Lymphocytes/100 WBC (Bld) 27.1 % Normal 19-41 [facility] Comment on above: Performed By: #### L 100.0100, L500.2500 #### [facility] [address] [place], [address] MCH (RBC) [Entitic mass] 32.7 pg High 27.0-32.0 [facility] Comment on above: Performed By: #### L 100.0100, L500.2500 #### [facility] [address] [place], [address] MCHC (RBC) [Mass/Vol] 33.9 g/dL Normal 32-36 [facility] Comment on above: Performed By: #### L 100.0100, L500.2500 #### [facility] [address] [place], [address] MCV (RBC) [Entitic vol] 96.2 fL Normal 81-99 [facility] Comment on above: Performed By: #### L 100.0100, L500.2500 #### [facility] [address] [place], [address] Monocytes/100 WBC (Bld) 6.4 % Normal 0-10 [facility] Comment on above: Performed By: #### L 100.0100, L500.2500 #### [facility] [address] [place], [address] Neutrophils/100 WBC (Bld) 63.1 % Normal 47-70 [facility] Comment on above: Performed By: #### L 100.0100, L500.2500 #### [facility] [address] [place], [address] Nucleated RBC (Bld) [#/Vol] 0 10*3/uL Normal 0-5 [facility] Comment on above: Performed By: #### L 100.0100, L500.2500 #### [facility] [address] [place], [address] Platelet mean volume (Bld) [Entitic vol] 8.7 fL Normal 6.2-12.0 [facility] Comment on above: Performed By: #### L 100.0100, L500.2500 #### [facility] [address] [place], [address] Platelets (Bld) [#/Vol] 309 10*3/uL Normal 150-450 [facility] Comment on above: Performed By: #### L 100.0100, L500.2500 #### [facility] [address] [place], [address] RBC (Bld) [#/Vol] 3.43 10*6/uL Low 4.2-5.4 [facility] Comment on above: Performed By: #### L 100.0100, L500.2500 #### [facility] [address] [place], [address] RDW SD 52.6 fl High 35.1-43.9 [facility] Comment on above: Performed By: #### L 100.0100, L500.2500 #### [facility] [address] [place], [address] WBC (Bld) [#/Vol] 9.8 10*3/uL Normal 4.4-11.0 [facility] Comment on above: Performed By: #### L 100.0100, L500.2500 #### [facility] [address] [place], [address] CMP with eGFRon 06-05-2025 AGE 34 years Normal [facility] Comment on above: Performed By: #### 2 41530 ####[facility],[address] [place] [address] Albumin [Mass/Vol] 3.1 g/dL Low 3.4 - 5.0 [facility] Comment on above: Performed By: #### 2 41159 ####[facility],[address] [place] [address] Albumin/Globulin [Mass ratio] 1.1 {ratio} Normal 0.9 - 1.6 [facility] Comment on above: Performed By: #### 2 33131 ####[facility],[address] [place] [address] ALK PHOS 56 U/L Normal 46 - 116 [facility] Comment on above: Performed By: #### 2 08713 ####[facility],[address] [place] [address] ALT [Catalytic activity/Vol] 15 U/L Low 16 - 63 [facility] Comment on above: Performed By: #### 2 33031 ####[facility],[address] [place] [address] Anion gap [Moles/Vol] 12 mmol/L Normal 10 - 20 [facility] Comment on above: Performed By: #### 2 10948 ####[facility],[address] [place] [address] AST [Catalytic activity/Vol] 12 U/L Low 13 - 39 [facility] Comment on above: Performed By: #### 2 65852 ####[facility],[address] [place] [address] B/C RATIO 13 ratio Normal 0 - 30 [facility] Comment on above: Performed By: #### 2 38908 ####[facility],[address] [place] [address] Bilirubin [Mass/Vol] 0.2 mg/dL Normal 0.2 - 1.0 [facility] Comment on above: Performed By: #### 2 99642 ####[facility],[address] [place] [address] Calcium [Mass/Vol] 8.4 mg/dL Low 8.5 - 10.1 [facility] Comment on above: Performed By: #### 2 03241 ####[facility],[address] [place] [address] Chloride [Moles/Vol] 106 mmol/L Normal 98 - 107 [facility] Comment on above: Performed By: #### 2 76419 ####[facility],[address] [place] [address] CMP with eGFR Normal [facility] Comment on above: Result Comment: COMP REHENSIVE METABOLIC PANEL Performed By: #### 2 85524 ####[facility],[address] [place] [address] CO2 [Moles/Vol] 26.0 mmol/L Normal 21.0 - 32.0 [facility] Comment on above: Performed By: #### 2 80096 ####[facility],[address] [place] [address] Creatinine [Mass/Vol] 0.93 mg/dL Normal 0.55 - 1.02 [facility] Comment on above: Performed By: #### 2 61690 ####[facility],[address] [place] [address] GFR/1.73 sq M.predicted among non-blacks MDRD (S/P/Bld) [Vol rate/Area] mL/min/{1.73_m2} Normal 60 - 999 [facility] Comment on above: Performed By: #### 2 36614 ####[facility],[address] [place], [place] [address] Result Comment: ACCO RDING TO THE NATIONAL KIDNEY DISEASE EDUCATION PROGRAM(NKDE), A NORMAL eGFRIS A VALUE GREATER THAN OR EQUAL TO 60 ML/MIN/1.73 SQ METERS.CHRONIC KIDNEY DISEASE: <60mL/MIN/1.73 SQ METERSKIDNEY FAILURE: <15mL/MIN/1.73 SQ METERSTHIS TEST SHOULD ONLY BE USED FOR PATIENTS 18 YEARS OF AGE AND OLDER. Globulin (S) [Mass/Vol] 2.9 g/dL Normal 1.5 - 3.8 [facility] Comment on above: Performed By: #### 2 87789 ####[facility],[address] [place] [address] Glucose [Mass/Vol] 88 mg/dL Normal 74 - 106 [facility] Comment on above: Performed By: #### 2 58941 ####[facility],[address] [place] [address] Potassium [Moles/Vol] 4.4 mmol/L Normal 3.5 - 5.1 [facility] Comment on above: Performed By: #### 2 44761 ####[facility],[address] [place] [address] Protein [Mass/Vol] 6.0 g/dL Low 6.4 - 8.2 [facility] Comment on above: Performed By: #### 2 04758 ####[facility],[address] [place] [address] Sodium [Moles/Vol] 140 mmol/L Normal 136 - 145 [facility] Comment on above: Performed By: #### 2 97809 ####[facility],[address] [place] [address] Urea nitrogen [Mass/Vol] 12 mg/dL Normal 7 - 18 [facility] Comment on above: Performed By: #### 2 46230 ####[facility],[address] [place] [address] Carbon dioxide, total [Moles /volume] in Central venous bloodOrdered By: Yeison Webber on 06-05-2025 CO2 [Moles/Vol] 21.5 mmol/L 21.0-32.0 [facility] Chloride assayOrdered By: Richard Webber on 06-05-2025 Chloride [Moles/Vol] 103 mmol/L 98-108 [facility] ED MED ADMINISTRATION DETAIL on 06-05-2025 ED MED ADMINISTRATION DETAIL Normal [facility] ED NURSES CLINICAL NOTEon ED NURSES CLINICAL NOTE Normal [facility] ED ORDER SHEET (CPOE ONLY)on 06-05-2025 ED ORDER SHEET (CPOE ONLY) Normal [facility] ED PHYSICIAN CLINICAL REPORT on 06-05-2025 ED PHYSICIAN CLINICAL REPORT Normal [facility] ED SUPER BILLon 06-05-2025 ED SUPER BILL Normal [facility] ED VISIT SUMMARYon ED VISIT SUMMARY Normal [facility] ED VITALS FLOW SHEETon 06-05 ED VITALS FLOW SHEET Normal [facility] Emergency Department Summary on 06-05-2025 Emergency Department Summary [facility] Medical Records Department [address] [place] [address] Emergency Department Summary 06/05/25 MR#: [id number] Acct: [id number] Name: LALY NAVAS Rep #: [id number] : 1990 34 From: Yeison Francis PCP: OEL PACE Status:DEP ER Location: ED HPI History of Present Illness Chief Complaint: Flank Pain Informant: patient Narrative Narrative: Presents worsening pain now in her abdomen rating towards her groin. Seen by myself yesterday diagnosed with kidney stone to multiple and left distal ureter. She has chronic nephrostomy tube on the same side 5 years ago history of reported cervical cancer that metastasized to her left kidney. She was in remission. She had infection of the urine from nephrostomy. She was given Rocephin yesterday. Her pain was controlled yesterday along with her nausea. States pain returned at 10 AM with nausea and vomiting. She sees palliative care on oxycodone 10 mg every 6 hours. Her last dose was at 10 AM. She was able to keep her antibiotics down of cefdinir. Denies fever or chills. She is pending a new urologist at [facility] this week she was previously seeing Dr. Sanders at [place]. She has appointment with her palliative doctor tomorrow. She states she was trying to wait it out. Prior similar symptoms: Yes PFSH PFS Medical History Nephrostomy present Kidney failure Kidney stone Cervical cancer Home Medications ???Medication ???Instructions ???Recorded ???Last Taken ???Type escitalopram oxalate 20 mg tablet 20 mg PO DAILY 04/09/25 Unknown H istory (Lexapro) lorazepam 1 mg tablet (Ativan) 1 mg PO Q8H PRN anxiety 04/09/25 0 06/03/25 06:00 History ondansetron HCl 4 mg tablet 4 mg PO Q6H PRN nausea and vomitin g 04/09/25 Unknown History oxycodone 5 mg tablet 10 mg PO Q6H PRN pain 04/09/2511/27 06:00 History sulfamethoxazole 800 1 tab PO BID 04/09/25 Unknown Hist ory mg-trimethoprim 160 mg tablet (Bactrim DS) cefdinir 300 mg capsule 300 mg PO Q12H #14 caps 06/04/25 U nknown Rx ondansetron 4 mg disintegrating 4 mg PO Q8H PRN PRN Nausea #10 tab s 06/04/25 Unknown Rx tablet Allergy/AdvReac Type Severity Reaction Status Date / Time haloperidol (From Haldol) Allergy Angioedema Verified 06/04/25 23:54 Penicillins (PCN) Allergy Hives Verified 06/04/25 23:54 Social History Smoking Status: Current every day smoker tobacco type: cigarettes and e-cigarettes ROS ROS ED Constitutional Constitutional ED: Denies chills, fever(s) or sweats ENT ENT ED: Denies sore throat Cardiovascular Cardiovascular: Denies chest pain, leg edema, palpitations or racing heartbeat Respiratory/Chest Respiratory/Chest: Denies cough, dyspnea or dyspnea on exertion Gastrointestinal Gastrointestinal: Reports abdominal pain, nausea and vomiting; Denies diarrhea Genitourinary Genitourinary ED: Denies dysuria, hematuria or urinary frequency Musculoskeletal Musculoskeletal: Denies back pain, extremity pain or neck pain Integumentary Denies rash or wounds Neurologic Neurologic: Denies headache(s), paresthesias or weakness EXAM Physical Exam Const Vital Signs: 06/04/25 23:54 06/05/25 01:53 06/05/25 02:12 Temperature 98.8 F 96.9 F L Temperature Source Oral Pulse Rate 90 85 79 Respiratory Rate 18 20 H 18 Blood Pressure 122/28 H 127/88 H 117/79 Blood Pressure Mean 59 101 91 Pulse Ox 98 99 99 Oxygen Delivery Method Room Air Room Air Positive well nourished and well developed Constitutional Narrative: Nontoxic, uncomfortable. General Appearance ED: well developed HEENT Reports moist mucous membranes normocephalic and atraumatic Eyes General Eye ED: Yes normal appearance of both eyes Neck full ROM Chest Wall Chest: Negative for tenderness Resp normal respiratory effort and normal air movement Effort and Inspection: symmetric chest movement; Negative for respiratory distress Cardio regular rate, regular rhythm and no murmurs Peripheral Pulses: pulses 2+ throughout GI normal to inspection, nondistended, normoactive bowel sounds GI Narrative: Mild tenderness left lower quadrant. No guarding or rebound. Palpation: Negative for guarding or rebound tenderness present Back/Spine Back/Spine Narrative: Left nephrostomy tube with yellow urine. Extremity normal to inspection General Extremety ED: Negative for edema or tenderness General Extremity: Negative for edema Neuro oriented x3 and no sensory deficits noted Sensorium / Orientation: awake and alert Skin no rashes or lesions noted and no wounds MDM MDM MDM Narrative Medical decision making narrative: Interventions / MDM: Differential diagnosis: Renal colic, urolithia (more content not included)... Normal [facility] Eosinophil percentageOrdered By: Yeison Webber on 06-05-2025 Eosinophils/100 WBC (Bld) 2.2 % 0-5 [facility] Erythrocyte distribution wid th ratioOrdered By: Yeison Webber on 06-05-2025 Erythrocyte distribution width (RBC) [Ratio] 15.0 % High 11.6-14.6 [facility] Erythrocyte distribution wid th standard deviationOrdered By: Yeison Webber on 06-05-2025 Erythrocyte distribution width (RBC) [Ratio] 52.6 fl High 35.1-43.9 [facility] Glomerular filtration rate ( GFR) estimation/1.73 sq m using serum, plasma, or whole bOrdered By: Yeison Webber on 06-05-2025 GFR/1.73 sq M.predicted among non-blacks MDRD (S/P/Bld) [Vol rate/Area] 77 mL/min/{1.73_m2} >60 [facility] Comment on above: mL/min/1.73m2 CKD-EP I Creatinine Equation (2020) Hematocrit Auto (Bld) [Volum e fraction]Ordered By: Yeison Webber on 06-05-2025 Hematocrit (Bld) [Volume fraction] 33.0 % Low 37-47 [facility] Hemoglobin measurementOrdere d By: Yeison Webber on 06-05-2025 Hemoglobin (Bld) [Mass/Vol] 11.2 g/dL Low 12.0-15.0 [facility] Immature granulocytes/100 WB C Auto (Bld)Ordered By: Yeison Webber on 06-05-2025 Immature granulocytes/100 WBC (Bld) 0.500 % 0.0-0.9 [facility] Comment on above: IG% - Immature Granu locytes (promyelocytes, myelocytes and metamyelocytes) > 1% indicates that a LEFT SHIFT is Present. LACTATEon 06-05-2025 Lactate [Moles/Vol] 1.1 mmol/L Normal 0.4 - 2.0 [facility] Comment on above: Performed By: #### 2 82561 ####[facility],[address] [place], [place] [address] LIPASEon 06-05-2025 Lipase [Catalytic activity/Vol] 15.0 U/L Normal 15.0 - 78.0 [facility] Comment on above: Result Comment: *PLE ASE NOTE THAT RANGES FOR LIPASE HAVE CHANGED OF 10/31/23 DUE TO AN ASSAYUPDATE BY THE PURCHASING DEPARTMENT CLERK.THE NEW ASSAY RANGE IS 6-250 U/L, WITH A REFERENCERANGE OF 16-77 U/L. Performed By: #### 2 13105 ####[facility],[address] [place], [place] [address] MCV (mean corpuscular volume ) determinationOrdered By: Yeison Webber on 06-05-2025 MCV (RBC) [Entitic vol] 96.2 fL 81-99 [facility] Mean corpuscular hemoglobin (MCH) determinationOrdered By: Yeison Webber on 06-05-2025 MCH (RBC) [Entitic mass] 32.7 pg High 27.0-32.0 [facility] Mean corpuscular hemoglobin concentration (MCHC) determinationOrdered By: Yeison Webber on 06-05-2025 MCHC (RBC) [Mass/Vol] 33.9 g/dL 32-36 [facility] Mean platelet volume determi nationOrdered By: Yeison Webber on 06-05-2025 Platelet mean volume (Bld) [Entitic vol] 8.7 fL 6.2-12.0 [facility] Monocyte percentageOrdered B y: Yeison Webber on 06-05-2025 Monocytes/100 WBC (Bld) 6.4 % 0-10 [facility] Neutrophil percentageOrdered By: Yeison Webber on 06-05-2025 Neutrophils/100 WBC (Bld) 63.1 % 47-70 [facility] Nucleated red blood cell per centageOrdered By: Yeison Webber on 06-05-2025 Nucleated RBC/100 WBC (Bld) [Ratio] 0 % 0-5 [facility] Platelet countOrdered By: Richard Webber on 06-05-2025 Platelets (Bld) [#/Vol] 309 10*3/uL 150-450 [facility] Potassium measurement (mass/ volume)Ordered By: Yeison Webber on 06-05-2025 Potassium (Unsp spec) [Mass/Vol] 4.3 mmol/L 3.3-5.1 [facility] RBC Auto (Bld) [#/Vol]Ordere d By: Yeison Webber on 06-05-2025 RBC (Bld) [#/Vol] 3.43 10*6/uL Low 4.2-5.4 [facility] Serum creatinine measurement (mass/volume)Ordered By: Yeison Webber on 06-05-2025 Creatinine [Mass/Vol] 0.97 mg/dL 0.70-1.20 [facility] Serum glucose measurement (m ass/volume)Ordered By: Yeison Webber on 06-05-2025 Glucose [Mass/Vol] 118 mg/dL High 70-99 [facility] Serum or plasma calcium zach urement (mass/volume)Ordered By: Yeison Webber on 06-05-2025 Calcium [Mass/Vol] 8.8 mg/dL 7.6-11.0 [facility] Serum or plasma urea nitroge n measurement (mass/volume)Ordered By: Yeison Webber on 06-05-2025 Urea nitrogen [Mass/Vol] 10 mg/dL 4-19 [facility] Sodium levelOrdered By: Yeison Webber on 06-05-2025 Sodium [Moles/Vol] 137 mmol/L 133-145 [facility] URINALYSISon 06-05-2025 Amorphous NONE Normal [facility] Comment on above: Performed By: #### 2 34263 ####[facility],[address] [place] [address] Bacteria 2+ Normal [facility] Comment on above: Performed By: #### 2 72161 ####[facility],[address] [place] [address]0414 Bilirubin Ql (U) Negative Normal NORMAL: NEGATIVE [facility] Comment on above: Performed By: #### 2 51157 ####[facility],[address] [place] [address] Casts NONE Normal [facility] Comment on above: Performed By: #### 2 11733 ####[facility],[address] [place] [address] Clarity (U) SL. CLOUDY Abnormal NORMAL: CLEAR [facility] Comment on above: Performed By: #### 2 85323 ####[facility],[address] [place], [place] [address] Color (U) p.yel Normal NORMAL: YELLOW [facility] Comment on above: Performed By: #### 2 42399 ####[facility],[address] [place] [address]4848 Crystals LM Nom (Urine sed) NONE Normal [facility] Comment on above: Performed By: #### 2 88513 ####[facility],[address] [place] [address] 40188 Epi Cells OCC Normal [facility] Comment on above: Performed By: #### 2 00871 ####[facility],[address] [place] [address] ERROR DUE TO MISTYPED Normal [facility] Comment on above: Performed By: #### 2 84751 ####[facility],[address],[place] [address] Glucose Ql (U) NORM Normal NORMAL: NORMAL [facility] Comment on above: Performed By: #### 2 10345 ####[facility],[address] [place] [address]0822 Hemoglobin Ql (U) 150 Abnormal NORMAL: NEGATIVE [facility] Comment on above: Performed By: #### 2 71257 ####[facility],[address] [place] [address] 67670 Ketone Negative Normal NORMAL: NEGATIVE [facility] Comment on above: Performed By: #### 2 10260 ####[facility],[address] [place] [address] 26397 Leukocytes 500 Abnormal NORMAL: NEGATIVE [facility] Comment on above: Performed By: #### 2 16770 ####[facility],[address] [place] [address] 94397 Mucous 1+ Normal [facility] Comment on above: Performed By: #### 2 35853 ####[facility],[address] [place] [address]35 Nitrite Ql (U) Positive Normal NORMAL: NEGATIVE [facility] Comment on above: Performed By: #### 2 39048 ####[facility],[address] [place] [address] 35946 pH (U) 7 [pH] Normal NORMAL: 5.0-8.0 [facility] Comment on above: Performed By: #### 2 50889 ####[facility],[address] [place] [address] 53219 Protein Ql (U) 30 Abnormal NORMAL: NEGATIVE [facility] Comment on above: Performed By: #### 2 88443 ####[facility],[address] [place] [address] 53982 Rbc 5-10 Normal 0-3/hpf [facility] Comment on above: Performed By: #### 2 99975 ####[facility],[address] [place] [address] 1.010 Normal NORMAL: 1.010-1.030 [facility] Comment on above: Performed By: #### 2 34425 ####[facility],[address] [place] [address] Specimen Type R Normal [facility] Comment on above: Performed By: #### 2 89566 ####[facility],[address] [place] [address] Urinalysis dipstick W Reflex Microscopic panel (U) SEE BELOW Normal [facility] Comment on above: Result Comment: MICR OSCOPIC Performed By: #### 2 65713 ####[facility],[address] [place] [address] Urobilinog NORM Normal NORMAL: NORMAL [facility] Comment on above: Performed By: #### 2 03535 ####[facility],[address] [place] [address] Wbc 16-25 Normal 0-5/hpf [facility] Comment on above: Performed By: #### 2 29579 ####[facility],[address] [place] [address] Yeast NONE Normal [facility] Comment on above: Result Comment: ==== FOLLOWING RESULTS REPORTED IN ERROR CA] Clarity clear <-- *Previously reported in error 06/05/25.1956.ALA. .URIS Performed By: #### 2 82883 ####[facility],[address] [place], [place] [address] Urine Cultureon 06-05-2025 [facility] Copy of report sent to Infection Control Printer [id number] 06/05/25 111 PERLA. Urine Culture RESULTS CALLED TO ERIBERTO IRVIN 06/05/25 1117 Eliz Miller. REPORT READ BACK BY . Urine Culture Pseudomonas aeruginosa [place] Count >100,000 MARKER Multi Drug Resistant OrganismA MARKER Multi Drug Resistant OrganismA Aztreonam Islt KB 19 I Pseudomonas aeruginosa: REACTION Ciprofloxacin Islt ANA LILIA 0.25 S levoFLOXacin Islt ANA LILIA 1 Meropenem Islt ANA LILIA 8 R Pip+Tazo Islt ANA LILAI >=128 R Pseudomonas aeruginosa: REACTION Amikacin Islt ANA LILIA 4 S Imipenem Islt ANA LILIA >=16 Tobramycin Islt ANA LILIA <=[address] [facility] Comment on above: Performed By: #### L 100.0100, L500.2500 #### [facility] [address] [place], [place], [address] White blood cell (WBC) count Ordered By: Yeison Webber on 06-05-2025 WBC (Bld) [#/Vol] 9.8 10*3/uL 4.4-11.0 [facility] Abdomen/Pelvis W IV Cont ONL Yon 06-04-2025 Abdomen/Pelvis W IV Cont ONLY [facility] Imaging Services [address] [place], [place] [address] Abdomen/Pelvis W IV Cont ONLY MR#: [id number] Acct: [id number] Name: LALY NAVAS Rep #: [id number] : 1990 F 34 From: Garland Crowley MD PCP: OLE PACE Status: [facility] ER Study: Abdomen/Pelvis W IV Cont ONLY Date of Exam: Exam# [id number] Ordering Dr: Yeison Webber DO PROCEDURE: ABDOMEN/PELVIS [...] small distal left ureteral stones. Reading Location: [place] [address] CC: Dr. Yeison Webber, DO; [facility]ACE Fire Tender: Signed Normal [facility] Absolute lymphocyte countOrd ered By: Yeison Webber on 06-04-2025 Lymphocytes Auto (Unsp spec) [#/Vol] 2.73 10*3/uL 0.83-4.51 [facility] [facility] Absolute neutrophil countOrd ered By: Yeison Webber on 06-04-2025 Neutrophils (Bld) [#/Vol] 6.1 10*3/uL 2.0-7.7 [facility] Anion gap in Serum or Plasma Ordered By: Yeison Webber on 06-04-2025 Anion gap [Moles/Vol] 11 mmol/L 5-15 [facility] Automated lymphocyte count a s percentage of total leukocytesOrdered By: Yeison Webber on 06-04-2025 Lymphocytes/100 WBC Auto (Unsp spec) 27.3 % 19-41 [facility] BUN/creatinine ratioOrdered By: Yeison Webber on 06-04-2025 Urea nitrogen/Creatinine [Mass ratio] 15.5 mg/mg 10-20 [facility] Basophil percentageOrdered B y: Yeison Webber on 06-04-2025 Basophils/100 WBC (Bld) 0.7 % 0-1 [facility] Bilirubin Test strip Ql (U)O rdered By: Yeison Webber on 06-04-2025 Bilirubin Ql (U) Negative Negative [facility] Bilirubin, totalOrdered By: Yeison Webber on 06-04-2025 Bilirubin [Mass/Vol] 0.16 mg/dL 0.00-1.30 [facility] CBC W/Diff, Automatedon 08- Absolute Lymph 2.73 X10 3/uL Normal 0.83-4.51 [facility] Comment on above: Performed By: #### L 500.4050, L501.2450, L100.0100 ####[facility] [address] [place], [address] Absolute Neut 6.1 X10 3/uL Normal 2.0-7.7 [facility] Comment on above: Performed By: #### L 500.4050, L501.2450, L100.0100 ####[facility] [address] [place], [address] Basophils/100 WBC (Bld) 0.7 % Normal 0-1 [facility] Comment on above: Performed By: #### L 500.4050, L501.2450, L100.0100 ####[facility] [address] [place], [address] Eosinophils/100 WBC (Bld) 2.6 % Normal 0-5 [facility] Comment on above: Performed By: #### L 500.4050, L501.2450, L100.0100 ####[facility] [address] [place], [address] Erythrocyte distribution width (RBC) [Ratio] 14.6 % Normal 11.6-14.6 [facility] Comment on above: Performed By: #### L 500.4050, L501.2450, L100.0100 ####[facility] [address] [place], [address] Hematocrit (Bld) [Volume fraction] 35.7 % Low 37-47 [facility] Comment on above: Performed By: #### L 500.4050, L501.2450, L100.0100 ####[facility] [address] [place], [address] Hemoglobin (Bld) [Mass/Vol] 12.3 g/dL Normal 12.0-15.0 [facility] Comment on above: Performed By: #### L 500.4050, L501.2450, L100.0100 ####[facility] [address] [place], [address] IG% 0.500 Normal 0.0-0.9 [facility] Comment on above: Result Comment: IG% - Immature Granulocytes (promyelocytes, myelocytes and metamyelocytes) > 1% indicates that a LEFT SHIFT is Present. Performed By: #### L 500.4050, L501.2450, L100.0100 ####[facility] [address] [place], [address] Lymphocytes/100 WBC (Bld) 27.3 % Normal 19-41 [facility] Comment on above: Performed By: #### L 500.4050, L501.2450, L100.0100 ####[facility] [address] [place], [address] MCH (RBC) [Entitic mass] 32.8 pg High 27.0-32.0 [facility] Comment on above: Performed By: #### L 500.4050, L501.2450, L100.0100 ####[facility] [address] [place], [address] MCHC (RBC) [Mass/Vol] 34.5 g/dL Normal 32-36 [facility] Comment on above: Performed By: #### L 500.4050, L501.2450, L100.0100 ####[facility] [address] [place], [address] MCV (RBC) [Entitic vol] 95.2 fL Normal 81-99 [facility] Comment on above: Performed By: #### L 500.4050, L501.2450, L100.0100 ####[facility] [address] [place], [address] Monocytes/100 WBC (Bld) 7.7 % Normal 0-10 [facility] Comment on above: Performed By: #### L 500.4050, L501.2450, L100.0100 ####[facility] [address] [place], [address] Neutrophils/100 WBC (Bld) 61.2 % Normal 47-70 [facility] Comment on above: Performed By: #### L 500.4050, L501.2450, L100.0100 ####[facility] [address] [place], [address] Nucleated RBC (Bld) [#/Vol] 0 10*3/uL Normal 0-5 [facility] Comment on above: Performed By: #### L 500.4050, L501.2450, L100.0100 ####[facility] [address] [place], [address] Platelet mean volume (Bld) [Entitic vol] 9.0 fL Normal 6.2-12.0 [facility] Comment on above: Performed By: #### L 500.4050, L501.2450, L100.0100 ####[facility] [address] [place], [address] Platelets (Bld) [#/Vol] 324 10*3/uL Normal 150-450 [facility] Comment on above: Performed By: #### L 500.4050, L501.2450, L100.0100 ####[facility] [address] [place], [address] RBC (Bld) [#/Vol] 3.75 10*6/uL Low 4.2-5.4 [facility] Comment on above: Performed By: #### L 500.4050, L501.2450, L100.0100 ####[facility] [address] [place], [address] RDW SD 51.7 fl High 35.1-43.9 [facility] Comment on above: Performed By: #### L 500.4050, L501.2450, L100.0100 ####[facility] [address] [place], [address] WBC (Bld) [#/Vol] 10.0 10*3/uL Normal 4.4-11.0 [facility] Comment on above: Performed By: #### L 500.4050, L501.2450, L100.0100 ####[facility] [address] [place], [address] Carbon dioxide, total [Moles /volume] in Central venous bloodOrdered By: Yeison Webber on 06-04-2025 CO2 [Moles/Vol] 23.2 mmol/L 21.0-32.0 [facility] Chloride assayOrdered By: Richard Webber on 06-04-2025 Chloride [Moles/Vol] 103 mmol/L 98-108 [facility] Comprehensive Metabolic Prof ilon 06-04-2025 Albumin [Mass/Vol] 4.0 g/dL Normal 3.5-5.0 [facility] Comment on above: Performed By: #### L 500.4050, L501.2450, L100.0100 ####[facility] [address] [place], [address] Albumin/Globulin [Mass ratio] 1.9 {ratio} Normal 0.9-2.4 [facility] Comment on above: Performed By: #### L 500.4050, L501.2450, L100.0100 ####[facility] [address] [place], [address] ALK PHOS 65 U/L Normal 35-104 [facility] Comment on above: Performed By: #### L 500.4050, L501.2450, L100.0100 ####[facility] [address] [place], [address] ALT [Catalytic activity/Vol] 8 U/L Normal <=34 [facility] Comment on above: Performed By: #### L 500.4050, L501.2450, L100.0100 ####[facility] [address] [place], [address] AST [Catalytic activity/Vol] 14 U/L Normal <=31 [facility] Comment on above: Performed By: #### L 500.4050, L501.2450, L100.0100 ####[facility] [address] [place], [address] Bilirubin [Mass/Vol] 0.16 mg/dL Normal 0.00-1.30 [facility] Comment on above: Performed By: #### L 500.4050, L501.2450, L100.0100 ####[facility] [address] [place], [address] BUN/CRE 15.5 RATIO Normal 10-20 [facility] Comment on above: Performed By: #### L 500.4050, L501.2450, L100.0100 ####[facility] [address] [place], [address] Calcium [Mass/Vol] 9.1 mg/dL Normal 7.6-11.0 [facility] Comment on above: Performed By: #### L 500.4050, L501.2450, L100.0100 ####[facility] [address] [place], [address] Chloride [Moles/Vol] 103 mmol/L Normal 98-108 [facility] Comment on above: Performed By: #### L 500.4050, L501.2450, L100.0100 ####[facility] [address] [place], [address] CO2 [Moles/Vol] 23.2 mmol/L Normal 21.0-32.0 [facility] Comment on above: Performed By: #### L 500.4050, L501.2450, L100.0100 ####[facility] [address] [place], [address] Creatinine [Mass/Vol] 0.87 mg/dL Normal 0.70-1.20 [facility] Comment on above: Performed By: #### L 500.4050, L501.2450, L100.0100 ####[facility] [address] [place], [address] ECRCL 69.57 ml/min Normal 50-250 [facility] Comment on above: Performed By: #### L 500.4050, L501.2450, L100.0100 ####[facility] [address] [place], [address] GAP 11 Normal 5-15 [facility] Comment on above: Performed By: #### L 500.4050, L501.2450, L100.0100 ####[facility] [address] [place], [address] GFR/1.73 sq M.predicted among non-blacks MDRD (S/P/Bld) [Vol rate/Area] 89 mL/min/{1.73_m2} Normal >60 [facility] Comment on above: Result Comment: mL/m in/1.73m2 CKD-EPI Creatinine Equation (2020) Performed By: #### L 500.4050, L501.2450, L100.0100 ####[facility] [address] [place], [address] Globulin (S) [Mass/Vol] 2.1 g/dL Low 2.2-4.2 [facility] Comment on above: Performed By: #### L 500.4050, L501.2450, L100.0100 ####[facility] [address] [place], [address] Glucose [Mass/Vol] 87 mg/dL Normal 70-99 [facility] Comment on above: Performed By: #### L 500.4050, L501.2450, L100.0100 ####[facility] [address] [place], [address] Potassium [Moles/Vol] 3.6 mmol/L Normal 3.3-5.1 [facility] Comment on above: Performed By: #### L 500.4050, L501.2450, L100.0100 ####[facility] [address] [place], [address] Sodium [Moles/Vol] 137 mmol/L Normal 133-145 [facility] Comment on above: Performed By: #### L 500.4050, L501.2450, L100.0100 ####[facility] [address] [place], [address] T PROT 6.1 g/dL Normal 5.9-8.4 [facility] Comment on above: Performed By: #### L 500.4050, L501.2450, L100.0100 ####[facility] [address] [place], [address] Urea nitrogen [Mass/Vol] 14 mg/dL Normal 4-19 [facility] Comment on above: Performed By: #### L 500.4050, L501.2450, L100.0100 ####[facility] [address] [place], [address] Emergency Department Summary on 06-04-2025 Emergency Department Summary [facility] Medical Records Department [address] [place] [place] [address] Emergency Department Summary 06/04/25 MR#: [id number] Acct: [id number] Name: LALY NAVAS Rep #: [id number] : 1990 34 From: Yeison Francis PCP: [facility] Status:DEP ER Location: ED HPI History of Present Illness Chief Complaint: Abd Pain Informant: patient Narrative Narrative: Progressive left side abdominal pain over the last 4 days. Was seen few days ago in the ED. History of cervical cancer in 2020 states metastasized to her left kidney. She required a left nephrostomy tube. She states she is currently in remission. Her nephrostomy tube is draining. No imaging performed at her last visit. She sees [facility] specialist. From urology Dr. Sanders. However states has a new urologist appointment through [facility] this week. This morning vomiting unable to keep things down. She sees palliative care she is on oxycodone 10 mg every 6 hours last dose 6 AM this morning. She is unable keep things down. [facility] Medical History Nephrostomy present Kidney failure Kidney stone Cervical cancer Home Medications ???Medication ???Instructions ???Recorded ???Last Taken ???Type escitalopram oxalate 20 mg tablet 20 mg PO DAILY 04/09/25 Unknown H istory (Lexapro) lorazepam 1 mg tablet (Ativan) 1 mg PO Q8H PRN anxiety 04/09/25 0 06/03/25 06:00 History ondansetron HCl 4 mg tablet 4 mg PO Q6H PRN nausea and vomitin g 04/09/25 Unknown History oxycodone 5 mg tablet 10 mg PO Q6H PRN pain 04/09/2511/27 06:00 History sulfamethoxazole 800 1 tab PO BID 04/09/25 Unknown Hist ory mg-trimethoprim 160 mg tablet (Bactrim DS) cefdinir 300 mg capsule 300 mg PO Q12H #14 caps 06/04/25 U nknown Rx ondansetron 4 mg disintegrating 4 mg PO Q8H PRN PRN Nausea #10 tab s 06/04/25 Unknown Rx tablet Allergy/AdvReac Type Severity Reaction Status Date / Time haloperidol (From Haldol) Allergy Angioedema Verified 06/03/25 23:28 Penicillins (PCN) Allergy Hives Verified 06/03/25 23:28 Social History Smoking Status: Current every day smoker tobacco type: cigarettes and e-cigarettes ROS ROS ED Constitutional Constitutional ED: Reports chills; Denies fever(s) or sweats ENT ENT ED: Denies sore throat Cardiovascular Cardiovascular: Denies chest pain, leg edema, palpitations or racing heartbeat Respiratory/Chest Respiratory/Chest: Denies cough, dyspnea or dyspnea on exertion Gastrointestinal Gastrointestinal: Reports abdominal pain, nausea and vomiting; Denies diarrhea Genitourinary Genitourinary ED: Denies dysuria, hematuria or urinary frequency Musculoskeletal Musculoskeletal: Reports back pain; Denies extremity pain or neck pain Integumentary Denies rash or wounds Neurologic Neurologic: Denies headache(s), paresthesias or weakness EXAM Physical Exam Const Vital Signs: 06/03/25 23:28 06/04/25 01:27 06/04/25 03:00 Temperature 98 F Temperature Source Oral Pulse Rate 90 66 76 Respiratory Rate 18 18 18 Blood Pressure 143/90 H 110/71 131/80 H Blood Pressure Mean 107 84 97 Pulse Ox 99 100 99 Oxygen Delivery Method Room Air Room Air Room Air 06/04/25 04:00 Temperature 98 F Temperature Source Pulse Rate 65 Respiratory Rate 18 Blood Pressure 137/87 H Blood Pressure Mean 103 Pulse Ox 99 Oxygen Delivery Method Positive well nourished and well developed Constitutional Narrative: Uncomfortable nontoxic. General Appearance ED: well developed HEENT HEENT Narrative: Mild dry mucosal membranes. normocephalic and atraumatic Eyes General Eye ED: Yes normal appearance of both eyes Neck full ROM Chest Wall Chest: Negative for tenderness Resp normal respiratory effort and normal air movement Effort and Inspection: symmetric chest movement; Negative for respiratory distress Cardio regular rate, regular rhythm and no murmurs Peripheral Pulses: pulses 2+ throughout GI normal to inspection, nondistended, normoactive bowel sounds GI Narrative: Mild tenderness left side abdomen no guarding or rebound. Palpation: Negative for guarding or rebound tenderness present Back/Spine Back/Spine Narrative: Left nephrostomy tube with yellow urine. No blood. Extremity normal to inspection General Extremety ED: Negative for edema or tenderness General Extremity: Negative for edema Neuro oriented x3 and no sensory deficits noted Sensorium / Orientation: awake and alert Skin no rashes or lesions noted and no wounds MDM MDM MDM Narrative Medical decision making narrative: Interventions / MDM: Differential diagnosis: Left flank pain, history of metastatic cervical cancer, n (more content not included)... Normal [facility] Eosinophil percentageOrdered By: Yeison Webber on 06-04-2025 Eosinophils/100 WBC (Bld) 2.6 % 0-5 [facility] Erythrocyte distribution wid th ratioOrdered By: Yeison Webber on 06-04-2025 Erythrocyte distribution width (RBC) [Ratio] 14.6 % 11.6-14.6 [facility] Erythrocyte distribution wid th standard deviationOrdered By: Yeison Webber on 06-04-2025 Erythrocyte distribution width (RBC) [Ratio] 51.7 fl High 35.1-43.9 [facility] Glomerular filtration rate ( GFR) estimation/1.73 sq m using serum, plasma, or whole bOrdered By: Yeison Webber on 06-04-2025 GFR/1.73 sq M.predicted among non-blacks MDRD (S/P/Bld) [Vol rate/Area] 89 mL/min/{1.73_m2} >60 [facility] Comment on above: mL/min/1.73m2 CKD-EP I Creatinine Equation (2020) Hematocrit Auto (Bld) [Volum e fraction]Ordered By: Yeison Webber on 06-04-2025 Hematocrit (Bld) [Volume fraction] 35.7 % Low 37-47 [facility] Hemoglobin measurementOrdere d By: Yeison Webber on 06-04-2025 Hemoglobin (Bld) [Mass/Vol] 12.3 g/dL 12.0-15.0 [facility] Immature granulocytes/100 WB C Auto (Bld)Ordered By: Yeison Webber on 06-04-2025 Immature granulocytes/100 WBC (Bld) 0.500 % 0.0-0.9 [facility] Comment on above: IG% - Immature Granu locytes (promyelocytes, myelocytes and metamyelocytes) > 1% indicates that a LEFT SHIFT is Present. Ketones Test strip Ql (U)Ord ered By: Yeison Webber on 06-04-2025 Ketones Ql (U) Negative Negative [facility] Laboratory - Chemistry and C hemistry - challengeOrdered By: Yeison Webber on 06-04-2025 AST [Catalytic activity/Vol] 14 U/L <32 [facility] Lipaseon 06-04-2025 Lipase [Catalytic activity/Vol] 15 U/L Normal 13-75 [facility] Comment on above: Result Comment: Carlyn osuna note: LIPASE revised reference range effective 23. New Lipase methodology. Expected to produce lower values than the previous assay method. NEW Reference Range: 13 - 75 U/L Performed By: #### L 500.4050, L501.2450, L100.0100 ####[facility] [address] [place], [address] Lipase measurementOrdered By : Yeison Webber on 06-04-2025 Lipase [Catalytic activity/Vol] 15 U/L 13-75 [facility] Comment on above: Please note:LIPASE r evised reference range effective 23. New Lipase methodology. Expected to produce lower values than the previous assay method. NEW Reference Range: 13 - 75 U/L MCV (mean corpuscular volume ) determinationOrdered By: Yeison Webber on 06-04-2025 MCV (RBC) [Entitic vol] 95.2 fL 81-99 [facility] Mean corpuscular hemoglobin (MCH) determinationOrdered By: Yeison Webber on 06-04-2025 MCH (RBC) [Entitic mass] 32.8 pg High 27.0-32.0 [facility] Mean corpuscular hemoglobin concentration (MCHC) determinationOrdered By: Yeison Webber on 06-04-2025 MCHC (RBC) [Mass/Vol] 34.5 g/dL 32-36 [facility] Mean platelet volume determi nationOrdered By: Yeison Webber on 06-04-2025 Platelet mean volume (Bld) [Entitic vol] 9.0 fL 6.2-12.0 [facility] Microscopic analysis of urin e for red blood cells (RBC)Ordered By: Yeison Webber on 06-04-2025 Microscopic analysis of urine for red blood cells (RBC) 25-50 SEEN /hpf 0-5 [facility] Monocyte percentageOrdered B y: Yeison Webber on 06-04-2025 Monocytes/100 WBC (Bld) 7.7 % 0-10 [facility] Mucus LM Ql (Urine sed)Order ed By: Yeison Webber on 06-04-2025 Mucus Ql (Urine sed) 0 SEEN /hpf [facility] Neutrophil percentageOrdered By: Yeison Webber on 06-04-2025 Neutrophils/100 WBC (Bld) 61.2 % 47-70 [facility] Nitrite Test strip Ql (U)Ord ered By: Yeison Webber on 06-04-2025 Nitrite Ql (U) Positive High Negative [facility] Nucleated red blood cell per centageOrdered By: Yeison Webber on 06-04-2025 Nucleated RBC/100 WBC (Bld) [Ratio] 0 % 0-5 [facility] Platelet countOrdered By: Richard Webber on 06-04-2025 Platelets (Bld) [#/Vol] 324 10*3/uL 150-450 [facility] Potassium measurement (mass/ volume)Ordered By: Yeison Webber on 06-04-2025 Potassium (Unsp spec) [Mass/Vol] 3.6 mmol/L 3.3-5.1 [facility] Protein Test strip Ql (U)Ord ered By: Yeison Webber on 06-04-2025 Protein Ql (U) 100 mg/dl High Negative [facility] RBC Auto (Bld) [#/Vol]Ordere d By: Yeison Webber on 06-04-2025 RBC (Bld) [#/Vol] 3.75 10*6/uL Low 4.2-5.4 [facility] Serum creatinine measurement (mass/volume)Ordered By: Yeison Webber on 06-04-2025 Creatinine [Mass/Vol] 0.87 mg/dL 0.70-1.20 [facility] Serum globulin measurementOr dered By: Yeison Webber on 06-04-2025 Globulin (S) [Mass/Vol] 2.1 g/dL Low 2.2-4.2 [facility] Serum glucose measurement (m ass/volume)Ordered By: Yeison Webber on 06-04-2025 Glucose [Mass/Vol] 87 mg/dL 70-99 [facility] Serum or plasma alanine garcia otransferase (ALT) measurementOrdered By: Yeison Webber on 06-04-2025 ALT [Catalytic activity/Vol] 8 U/L <35 [facility] Serum or plasma albumin zach urement (mass/volume)Ordered By: Yeison Webber on 06-04-2025 Albumin [Mass/Vol] 4.0 g/dL 3.5-5.0 [facility] Serum or plasma albumin/glob ulin mass ratioOrdered By: Yeison Webber on 06-04-2025 Albumin/Globulin [Mass ratio] 1.9 {ratio} 0.9-2.4 [facility] Serum or plasma alkaline rai sphatase measurementOrdered By: Yeison Webber on 06-04-2025 ALP [Catalytic activity/Vol] 65 U/L 35-104 [facility] Serum or plasma calcium zach urement (mass/volume)Ordered By: Yeison Webber on 06-04-2025 Calcium [Mass/Vol] 9.1 mg/dL 7.6-11.0 [facility] Serum or plasma urea nitroge n measurement (mass/volume)Ordered By: Yeison Webber on 06-04-2025 Urea nitrogen [Mass/Vol] 14 mg/dL 4-19 [facility] Sodium levelOrdered By: Yeison Webber on 06-04-2025 Sodium [Moles/Vol] 137 mmol/L 133-145 [facility] Squamous epithelial cells de tection in urine sediment by light microscopyOrdered By: Yeison Webber on 06-04-2025 Epithelial cells.squamous LM Ql (Urine sed) 0-5 SEEN /hpf 5-10 [facility] Total proteinOrdered By: Brian Webber on 06-04-2025 Protein [Mass/Vol] 6.1 g/dL 5.9-8.4 [facility] Transitional cells detection in urine sediment by light microscopyOrdered By: Yeison Webber on 06-04-2025 Transitional cells LM Ql (Urine sed) 5-10 SEEN /hpf 0-5 [facility] Urinalysis, Completeon 06-04 BACTERIA 2+ /hpf Normal None Seen [facility] Comment on above: Order Comment: HOLLIE TER SPECIMEN Performed By: #### L 400.0001 #### [facility] [address] [place], [address] EPI,SQUAMOUS 0-5 SEEN Normal 5-10 [facility] Comment on above: Order Comment: HOLLIE TER SPECIMEN Performed By: #### L 400.0001 #### [facility] [address] [place], [address] EPI,TRANSITION 5-10 SEEN Normal 0-5 [facility] Comment on above: Order Comment: HOLLIE TER SPECIMEN Performed By: #### L 400.0001 #### [facility] [address] [place], [address] RBC 25-50 SEEN Normal 0-5 [facility] Comment on above: Order Comment: HOLLIE TER SPECIMEN Performed By: #### L 400.0001 #### [facility] [address] [place], [address] WBC >100 SEEN Normal 0-5 [facility] Comment on above: Order Comment: HOLLIE TER SPECIMEN Performed By: #### L 400.0001 #### [facility] [address] [place], [address] BILIRUBIN URINE Negative Normal Negative [facility] Comment on above: Order Comment: HOLLIE TER SPECIMEN Performed By: #### L 400.0001 #### [facility] [address] [place], [address] Clarity (U) Sl. Cloudy Normal Clear [facility] Comment on above: Order Comment: HOLLIE TER SPECIMEN Performed By: #### L 400.0001 #### [facility] [address] [place], [address] Color (U) Straw Normal Yellow [facility] Comment on above: Order Comment: HOLLIE TER SPECIMEN Performed By: #### L 400.0001 #### [facility] [address] [place], [address] GLUCOSE, UR Normal Normal Normal [facility] Comment on above: Order Comment: HOLLIE TER SPECIMEN Performed By: #### L 400.0001 #### [facility] [address] [place], [address] KETONE UR Negative Normal Negative [facility] Comment on above: Order Comment: HOLLIE TER SPECIMEN Performed By: #### L 400.0001 #### [facility] Laboratory [address] [place], [address] LEUK ESTERASE 500 /ul Abnormal Negative [facility] Comment on above: Order Comment: HOLLIE TER SPECIMEN Performed By: #### L 400.0001 #### [facility] [address] [place], [address] Nitrite Ql (U) Positive Abnormal Negative [facility] Comment on above: Order Comment: HOLLIE TER SPECIMEN Performed By: #### L 400.0001 #### [facility] [address] [place], [address] OCCULT BLOOD-UR 150 /ul Abnormal Negative [facility] Comment on above: Order Comment: HOLLIE TER SPECIMEN Performed By: #### L 400.0001 #### [facility] [address] [place], [address] pH UR 7.0 Normal 5.0 - 8.0 [facility] Comment on above: Order Comment: HOLLIE TER SPECIMEN Performed By: #### L 400.0001 #### [facility] [address] [place], [address] PROT DIPSTX 100 mg/dl Abnormal Negative [facility] Comment on above: Order Comment: HOLLIE TER SPECIMEN Performed By: #### L 400.0001 #### [facility] [address] [place], [address] SP.GR. DIPSTX 1.010 Normal 1.002-1.030 [facility] Comment on above: Order Comment: HOLLIE TER SPECIMEN Performed By: #### L 400.0001 #### [facility] [address] [place], [address] UROBILI Normal Normal Normal [facility] Comment on above: Order Comment: HOLLIE TER SPECIMEN Performed By: #### L 400.0001 #### [facility] [address] [place], [place], [id number] Mucus Ql (Urine sed) 0 SEEN Normal [facility] Comment on above: Order Comment: HOLLIE TER SPECIMEN Performed By: #### L 400.0001 #### [facility] [address] [place], [place], [id number] Urine clarityOrdered By: Brian Webber on 06-04-2025 Clarity (U) Sl. Cloudy Clear [facility] Urine color determinationOrd ered By: Yeison Webber on 06-04-2025 Color (U) Straw Yellow [facility] Urine glucose detectionOrder ed By: Yeison Webber on 06-04-2025 Glucose Ql (U) Normal mg/dl Normal [facility] Urine leukocyte esterase det ection by dipstickOrdered By: Yeison Webber on 06-04-2025 Leukocyte esterase Test strip Ql (U) 500 /ul High Negative [facility] Urine pHOrdered By: Yeison Webber on 06-04-2025 pH (U) 7.0 [pH] 5.0 - 8.0 [facility] Urine sediment bacteria coun t by microscopy (number/high power field)Ordered By: Yeison Webber on 06-04-2025 Bacteria LM.HPF (Urine sed) [#/Area] 2 /[HPF] None Seen [facility] Urine specific gravity measu rementOrdered By: Yeison Webber on 06-04-2025 Specific gravity (U) [Rel density] 1.010 1.002-1.030 [facility] Urine urobilinogen measureme ntOrdered By: Yeison Webber on 06-04-2025 Urobilinogen Ql (U) Normal mg/dl Normal [facility] White blood cell (WBC) count Ordered By: Yeison Webber on 06-04-2025 WBC (Bld) [#/Vol] 10.0 10*3/uL 4.4-11.0 [facility] White blood cell countOrdere d By: Yeison Webber on 06-04-2025 White blood cell count >100 SEEN /hpf 0-5 [facility] Absolute lymphocyte countOrd ered By: Maryellen Haile on 06-02-2025 Lymphocytes Auto (Unsp spec) [#/Vol] 3.10 10*3/uL 0.83-4.51 [facility] Absolute neutrophil countOrd ered By: Maryellen Haile on 06-02-2025 Neutrophils (Bld) [#/Vol] 5.2 10*3/uL 2.0-7.7 [facility] Anion gap in Serum or Plasma Ordered By: Maryellen Haile on 06-02-2025 Anion gap [Moles/Vol] 13 mmol/L 5-15 [facility] Automated lymphocyte count a s percentage of total leukocytesOrdered By: aMryellen Haile on 06-02-2025 Lymphocytes/100 WBC Auto (Unsp spec) 32.7 % 19-41 [facility] BUN/creatinine ratioOrdered By: Maryellen Haile on 06-02-2025 Urea nitrogen/Creatinine [Mass ratio] 9.5 mg/mg Low 10-20 [facility] Basophil percentageOrdered B y: Maryellen Haile on 06-02-2025 Basophils/100 WBC (Bld) 0.9 % 0-1 [facility] Bilirubin Test strip Ql (U)O rdered By: Maryellen Haile on 06-02-2025 Bilirubin Ql (U) Negative Negative [facility] Bilirubin, totalOrdered By: Maryellen Haile on 06-02-2025 Bilirubin [Mass/Vol] mg/dL 0.00-1.30 [facility] CBC W/Diff, Automatedon 05-05 Absolute Lymph 3.10 X10 3/uL Normal 0.83-4.51 [facility] Comment on above: Performed By: #### L 100.0100, L500.4050 ####[facility] [address] [place], [place], [id number] Absolute Neut 5.2 X10 3/uL Normal 2.0-7.7 [facility] Comment on above: Performed By: #### L 100.0100, L500.4050 ####[facility] [address] [place], [address] Basophils/100 WBC (Bld) 0.9 % Normal 0-1 [facility] Comment on above: Performed By: #### L 100.0100, L500.4050 ####[facility] [address] [place], [address] Eosinophils/100 WBC (Bld) 2.5 % Normal 0-5 [facility] Comment on above: Performed By: #### L 100.0100, L500.4050 ####[facility] [address] [place], [address] Erythrocyte distribution width (RBC) [Ratio] 14.7 % High 11.6-14.6 [facility] Comment on above: Performed By: #### L 100.0100, L500.4050 ####[facility] [address] [place], [address] Hematocrit (Bld) [Volume fraction] 33.2 % Low 37-47 [facility] Comment on above: Performed By: #### L 100.0100, L500.4050 ####[facility] [address] [place], [address] Hemoglobin (Bld) [Mass/Vol] 11.3 g/dL Low 12.0-15.0 [facility] Comment on above: Performed By: #### L 100.0100, L500.4050 ####[facility] [address] [place], [address] IG% 0.300 Normal 0.0-0.9 [facility] Comment on above: Result Comment: IG% - Immature Granulocytes (promyelocytes, myelocytes and metamyelocytes) > 1% indicates that a LEFT SHIFT is Present. Performed By: #### L 100.0100, L500.4050 ####[facility] [address] [place], [address] Lymphocytes/100 WBC (Bld) 32.7 % Normal 19-41 [facility] Comment on above: Performed By: #### L 100.0100, L500.4050 ####[facility] [address] [place], [address] MCH (RBC) [Entitic mass] 32.8 pg High 27.0-32.0 [facility] Comment on above: Performed By: #### L 100.0100, L500.4050 ####[facility] [address] [place], [address] MCHC (RBC) [Mass/Vol] 34.0 g/dL Normal 32-36 [facility] Comment on above: Performed By: #### L 100.0100, L500.4050 ####[facility] [address] [place], [address] MCV (RBC) [Entitic vol] 96.5 fL Normal 81-99 [facility] Comment on above: Performed By: #### L 100.0100, L500.4050 ####[facility] [address] [place], [address] Monocytes/100 WBC (Bld) 9.0 % Normal 0-10 [facility] Comment on above: Performed By: #### L 100.0100, L500.4050 ####[facility] [address] [place], [address] Neutrophils/100 WBC (Bld) 54.6 % Normal 47-70 [facility] Comment on above: Performed By: #### L 100.0100, L500.4050 ####[facility] [address] [place], [address] Nucleated RBC (Bld) [#/Vol] 0 10*3/uL Normal 0-5 [facility] Comment on above: Performed By: #### L 100.0100, L500.4050 ####[facility] [address] [place], [address] Platelet mean volume (Bld) [Entitic vol] 9.5 fL Normal 6.2-12.0 [facility] Comment on above: Performed By: #### L 100.0100, L500.4050 ####[facility] [address] [place], [address] Platelets (Bld) [#/Vol] 333 10*3/uL Normal 150-450 [facility] Comment on above: Performed By: #### L 100.0100, L500.4050 ####[facility] [address] [place], [address] RBC (Bld) [#/Vol] 3.44 10*6/uL Low 4.2-5.4 [facility] Comment on above: Performed By: #### L 100.0100, L500.4050 ####[facility] [address] [place], [address] RDW SD 51.6 fl High 35.1-43.9 [facility] Comment on above: Performed By: #### L 100.0100, L500.4050 ####[facility] [address] [place], [address] WBC (Bld) [#/Vol] 9.5 10*3/uL Normal 4.4-11.0 [facility] Comment on above: Performed By: #### L 100.0100, L500.4050 ####[facility] [address] [place], [address] Carbon dioxide, total [Moles /volume] in Central venous bloodOrdered By: Maryellen Haile on 06-02-2025 CO2 [Moles/Vol] 22.2 mmol/L 21.0-32.0 [facility] Chloride assayOrdered By: Rajesh Haile on 06-02-2025 Chloride [Moles/Vol] 102 mmol/L 98-108 [facility] Comprehensive Metabolic Prof ilon 06-02-2025 Albumin [Mass/Vol] 3.9 g/dL Normal 3.5-5.0 [facility] Comment on above: Performed By: #### L 100.0100, L500.4050 ####[facility] [address] [place], [address] Albumin/Globulin [Mass ratio] 1.8 {ratio} Normal 0.9-2.4 [facility] Comment on above: Performed By: #### L 100.0100, L500.4050 ####[facility] [address] [place], [address] ALK PHOS 64 U/L Normal 35-104 [facility] Comment on above: Performed By: #### L 100.0100, L500.4050 ####[facility] [address] [place], [address] ALT [Catalytic activity/Vol] 11 U/L Normal <=34 [facility] Comment on above: Performed By: #### L 100.0100, L500.4050 ####[facility] [address] [place], [address] AST [Catalytic activity/Vol] 15 U/L Normal <=31 [facility] Comment on above: Performed By: #### L 100.0100, L500.4050 ####[facility] [address] [place], [address] BUN/CRE 9.5 RATIO Low 10-20 [facility] Comment on above: Performed By: #### L 100.0100, L500.4050 ####[facility] [address] [place], [address] Calcium [Mass/Vol] 9.0 mg/dL Normal 7.6-11.0 [facility] Comment on above: Performed By: #### L 100.0100, L500.4050 ####[facility] [address] [place], [address] Chloride [Moles/Vol] 102 mmol/L Normal 98-108 [facility] Comment on above: Performed By: #### L 100.0100, L500.4050 ####[facility] [address] [place], [address] CO2 [Moles/Vol] 22.2 mmol/L Normal 21.0-32.0 [facility] Comment on above: Performed By: #### L 100.0100, L500.4050 ####[facility] [address] [place], [address] Creatinine [Mass/Vol] 1.01 mg/dL Normal 0.70-1.20 [facility] Comment on above: Performed By: #### L 100.0100, L500.4050 ####[facility] [address] [place], [address] ECRCL 66.39 ml/min Normal 50-250 [facility] Comment on above: Performed By: #### L 100.0100, L500.4050 ####[facility] [address] [place], [address] GAP 13 Normal 5-15 [facility] Comment on above: Performed By: #### L 100.0100, L500.4050 ####[facility] [address] [place], [address] GFR/1.73 sq M.predicted among non-blacks MDRD (S/P/Bld) [Vol rate/Area] 74 mL/min/{1.73_m2} Normal >60 [facility] Comment on above: Result Comment: mL/m in/1.73m2 CKD-EPI Creatinine Equation (2020) Performed By: #### L 100.0100, L500.4050 ####[facility] [address] [place], [address] Globulin (S) [Mass/Vol] 2.2 g/dL Normal 2.2-4.2 [facility] Comment on above: Performed By: #### L 100.0100, L500.4050 ####[facility] [address] [place], [address] Glucose [Mass/Vol] 110 mg/dL High 70-99 [facility] Comment on above: Performed By: #### L 100.0100, L500.4050 ####[facility] [address] [place], [address] Potassium [Moles/Vol] 3.8 mmol/L Normal 3.3-5.1 [facility] Comment on above: Performed By: #### L 100.0100, L500.4050 ####[facility] [address] [place], [address] Sodium [Moles/Vol] 138 mmol/L Normal 133-145 [facility] Comment on above: Performed By: #### L 100.0100, L500.4050 ####[facility] [address] [place], [address] T BILI < 0.15 Normal 0.00-1.30 [facility] Comment on above: Performed By: #### L 100.0100, L500.4050 ####[facility] [address] [place], [address] T PROT 6.0 g/dL Normal 5.9-8.4 [facility] Comment on above: Performed By: #### L 100.0100, L500.4050 ####[facility] [address] [place], [address] Urea nitrogen [Mass/Vol] 10 mg/dL Normal 4-19 [facility] Comment on above: Performed By: #### L 100.0100, L500.4050 ####[facility] [address] [place], [address] Emergency Department Summary on 06-02-2025 Emergency Department Summary [facility] Medical Records Department [address] [place] [address] Emergency Department Summary 06/02/25 MR#: [id number] Acct: [id number] Name: LALY NAVAS Rep #: [id number] : 1990 34 From: Maryellen Haile DO [...] urine output. She had been following at [place] with Dr. Sanders but states that she is getting established with a doctor at [facility]. She is not established yet. She denies any blood in her urine. No other complaints or concerns reported at this time. [facility] Medical History Nephrostomy present Kidney failure [...] cell co (more content not included)... Normal [facility] Eosinophil percentageOrdered By: Maryellen Haile on 06-02-2025 Eosinophils/100 WBC (Bld) 2.5 % 0-5 [facility] Erythrocyte distribution wid th ratioOrdered By: Maryellen Haile on 06-02-2025 Erythrocyte distribution width (RBC) [Ratio] 14.7 % High 11.6-14.6 [facility] Erythrocyte distribution wid th standard deviationOrdered By: Maryellen Haile on 06-02-2025 Erythrocyte distribution width (RBC) [Ratio] 51.6 fl High 35.1-43.9 [facility] Glomerular filtration rate ( GFR) estimation/1.73 sq m using serum, plasma, or whole bOrdered By: Maryellen Haile on 06-02-2025 GFR/1.73 sq M.predicted among non-blacks MDRD (S/P/Bld) [Vol rate/Area] 74 mL/min/{1.73_m2} >60 [facility] Comment on above: mL/min/1.73m2 CKD-EP I Creatinine Equation (2020) Hematocrit Auto (Bld) [Volum e fraction]Ordered By: Maryellen Haile on 06-02-2025 Hematocrit (Bld) [Volume fraction] 33.2 % Low 37-47 [facility] Hemoglobin measurementOrdere d By: Maryellen Haile on 06-02-2025 Hemoglobin (Bld) [Mass/Vol] 11.3 g/dL Low 12.0-15.0 [facility] Immature granulocytes/100 WB C Auto (Bld)Ordered By: Maryellen Haile on 06-02-2025 Immature granulocytes/100 WBC (Bld) 0.300 % 0.0-0.9 [facility] Comment on above: IG% - Immature Granu locytes (promyelocytes, myelocytes and metamyelocytes) > 1% indicates that a LEFT SHIFT is Present. Ketones Test strip Ql (U)Ord ered By: Maryellen Haile on 06-02-2025 Ketones Ql (U) Negative Negative [facility] Laboratory - Chemistry and C hemistry - challengeOrdered By: Maryellen Haile on 06-02-2025 AST [Catalytic activity/Vol] 15 U/L <32 [facility] MCV (mean corpuscular volume ) determinationOrdered By: Maryellen Haile on 06-02-2025 MCV (RBC) [Entitic vol] 96.5 fL 81-99 [facility] Mean corpuscular hemoglobin (MCH) determinationOrdered By: Maryellen Haile on 06-02-2025 MCH (RBC) [Entitic mass] 32.8 pg High 27.0-32.0 [facility] Mean corpuscular hemoglobin concentration (MCHC) determinationOrdered By: Maryellen Haile on 06-02-2025 MCHC (RBC) [Mass/Vol] 34.0 g/dL 32-36 [facility] Mean platelet volume determi nationOrdered By: Maryellen Haile on 06-02-2025 Platelet mean volume (Bld) [Entitic vol] 9.5 fL 6.2-12.0 [facility] Microscopic analysis of urin e for red blood cells (RBC)Ordered By: Maryellen Haile on 06-02-2025 Microscopic analysis of urine for red blood cells (RBC) 0 SEEN /hpf 0-5 [facility] Monocyte percentageOrdered B y: Maryellen Haile on 06-02-2025 Monocytes/100 WBC (Bld) 9.0 % 0-10 [facility] Mucus LM Ql (Urine sed)Order ed By: Maryellen Haile on 06-02-2025 Mucus Ql (Urine sed) 0 SEEN /hpf [facility] Neutrophil percentageOrdered By: Maryellen Haile on 06-02-2025 Neutrophils/100 WBC (Bld) 54.6 % 47-70 [facility] Nitrite Test strip Ql (U)Ord ered By: Maryellen Haile on 06-02-2025 Nitrite Ql (U) Negative Negative [facility] Nucleated red blood cell per centageOrdered By: Maryellen Haile on 06-02-2025 Nucleated RBC/100 WBC (Bld) [Ratio] 0 % 0-5 [facility] Platelet countOrdered By: Rajesh Haile on 06-02-2025 Platelets (Bld) [#/Vol] 333 10*3/uL 150-450 [facility] Potassium measurement (mass/ volume)Ordered By: Maryellen Haile on 06-02-2025 Potassium (Unsp spec) [Mass/Vol] 3.8 mmol/L 3.3-5.1 [facility] ,Urineon 06-02-2025 Beta HCG ( test) Ql (U) Negative Normal [facility] Comment on above: Result Comment: Very dilute urine specimens, as indicated by a low specific gravity, may not contain brewery representative levels of hCG. If is still suspected, a first morning urine specimen should be collected 48 hours later and tested. Performed By: #### L 400.7600, L400.0001 #### [facility] [address] [place], [address] Protein Test strip Ql (U)Ord ered By: Maryellen Haile on 06-02-2025 Protein Ql (U) 15 mg/dl High Negative [facility] RBC Auto (Bld) [#/Vol]Ordere d By: Maryellen Haile on 06-02-2025 RBC (Bld) [#/Vol] 3.44 10*6/uL Low 4.2-5.4 [facility] Serum creatinine measurement (mass/volume)Ordered By: Mayrellen Haile on 06-02-2025 Creatinine [Mass/Vol] 1.01 mg/dL 0.70-1.20 [facility] Serum globulin measurementOr dered By: Maryellen Haile on 06-02-2025 Globulin (S) [Mass/Vol] 2.2 g/dL 2.2-4.2 [facility] Serum glucose measurement (m ass/volume)Ordered By: Maryellen Haile on 06-02-2025 Glucose [Mass/Vol] 110 mg/dL High 70-99 [facility] Serum or plasma alanine garcia otransferase (ALT) measurementOrdered By: Maryellen Haile on 06-02-2025 ALT [Catalytic activity/Vol] 11 U/L <35 [facility] Serum or plasma albumin zach urement (mass/volume)Ordered By: Maryellen Haile on 06-02-2025 Albumin [Mass/Vol] 3.9 g/dL 3.5-5.0 [facility] Serum or plasma albumin/glob ulin mass ratioOrdered By: Maryellen Haile on 06-02-2025 Albumin/Globulin [Mass ratio] 1.8 {ratio} 0.9-2.4 [facility] Serum or plasma alkaline rai sphatase measurementOrdered By: Maryellen Haile on 06-02-2025 ALP [Catalytic activity/Vol] 64 U/L 35-104 [facility] Serum or plasma calcium zach urement (mass/volume)Ordered By: Maryellen Haile on 06-02-2025 Calcium [Mass/Vol] 9.0 mg/dL 7.6-11.0 [facility] Serum or plasma urea nitroge n measurement (mass/volume)Ordered By: Maryellen Haile on 06-02-2025 Urea nitrogen [Mass/Vol] 10 mg/dL 4-19 [facility] Sodium levelOrdered By: Joni Haile on 06-02-2025 Sodium [Moles/Vol] 138 mmol/L 133-145 [facility] Squamous epithelial cells de tection in urine sediment by light microscopyOrdered By: Maryellen Haile on 06-02-2025 Epithelial cells.squamous LM Ql (Urine sed) 0 SEEN /hpf 5-10 [facility] Total proteinOrdered By: Roseanne Haile on 06-02-2025 Protein [Mass/Vol] 6.0 g/dL 5.9-8.4 [facility] Urinalysis, Completeon 06-02 BACTERIA 0 SEEN Normal None Seen [facility] Comment on above: Order Comment: COLLE CTOR TO SPECIFY Performed By: #### L 400.0001 ####[facility] [address] [place], [address] EPI,SQUAMOUS 0 SEEN Normal 5-10 [facility] Comment on above: Order Comment: COLLE CTOR TO SPECIFY Performed By: #### L 400.0001 ####[facility] [address] [place], [address] Mucus Ql (Urine sed) 0 SEEN Normal [facility] Comment on above: Order Comment: COLLE CTOR TO SPECIFY Performed By: #### L 400.0001 ####[facility] [address] [place], [address] RBC 0 SEEN Normal 0-5 [facility] Comment on above: Order Comment: COLLE CTOR TO SPECIFY Performed By: #### L 400.0001 ####[facility] [address] [place], [address] WBC 0 SEEN Normal 0-5 [facility] Comment on above: Order Comment: YOSELIN CTOR TO SPECIFY Performed By: #### L 400.0001 ####[facility] [address] [place], [address] BACTERIA 1+ /hpf Normal None Seen [facility] Comment on above: Order Comment: COLLE CTOR TO SPECIFY Performed By: #### L 400.7600, L400.0001 #### [facility] [address] [place], [address] WBC 0-5 SEEN Normal 0-5 [facility] Comment on above: Order Comment: COLLE CTOR TO SPECIFY Performed By: #### L 400.7600, L400.0001 #### [facility] [address] [place], [address] EPI,SQUAMOUS 0 SEEN Normal 5-10 [facility] Comment on above: Order Comment: COLLE CTOR TO SPECIFY Performed By: #### L 400.7600, L400.0001 #### [facility] [address] [place], [address] Mucus Ql (Urine sed) 0 SEEN Normal [facility] Comment on above: Order Comment: YOSELIN CTOR TO SPECIFY Performed By: #### L 400.7600, L400.0001 #### [facility] [address] [place], [address] RBC 0 SEEN Normal 0-5 [facility] Comment on above: Order Comment: YOSELIN CTOR TO SPECIFY Performed By: #### L 400.7600, L400.0001 #### [facility] [address] [place], [address] Urine clarityOrdered By: Roseanne Haile on 06-02-2025 Clarity (U) Clear Clear [facility] Urine color determinationOrd ered By: Maryellen Haile on 06-02-2025 Color (U) Yellow Yellow [facility] Urine glucose detectionOrder ed By: Maryellen Haile on 06-02-2025 Glucose Ql (U) Normal mg/dl Normal [facility] Urine leukocyte esterase det ection by dipstickOrdered By: Maryellen Haile on 06-02-2025 Leukocyte esterase Test strip Ql (U) Negative Negative [facility] Urine pHOrdered By: Maryellen alarcon on 06-02-2025 pH (U) 6.0 [pH] 5.0 - 8.0 [facility] Urine testOrdered By: Maryellen Haile on 06-02-2025 HCG ( test) Ql (U) Negative [facility] Comment on above: Very dilute urine sp ecimens, as indicated by a low specificgravity, may not contain brewery representative levels of hCG. If is still suspected, a first morning urinespecimen should be collected 48 hours later and tested. Urine sediment bacteria coun t by microscopy (number/high power field)Ordered By: Maryellen Haile on 06-02-2025 Bacteria LM.HPF (Urine sed) [#/Area] 0 /[HPF] None Seen [facility] Urine specific gravity measu rementOrdered By: Maryellen Haile on 06-02-2025 Specific gravity (U) [Rel density] 1.015 1.002-1.030 [facility] [facility] Urine urobilinogen measureme ntOrdered By: Maryellen Haile on 06-02-2025 Urobilinogen Ql (U) Normal mg/dl Normal [facility] White blood cell (WBC) count Ordered By: Maryellen Haile on 06-02-2025 WBC (Bld) [#/Vol] 9.5 10*3/uL 4.4-11.0 [facility] White blood cell countOrdere d By: Maryellen Haile on 06-02-2025 White blood cell count 0 SEEN /hpf 0-5 [facility] CBC + DIFFon 06-01-2025 Baso # 0.03 x10EE3/UL Normal 0.00 - 0.10 [facility] Comment on above: Performed By: #### 2 02046 ####[facility],[address] [place] [address] 45474 Basophils/100 WBC (Bld) 0.4 % Normal 0.0 - 2.0 [facility] Comment on above: Performed By: #### 2 54391 ####[facility],[address] [place] [address] 24396 CBC + DIFF Normal [facility] Comment on above: Result Comment: CBC- COMPLETE BLOOD COUNT Performed By: #### 2 55628 ####[facility],[address] [place] [address] 23405 EO # 0.20 x10EE3/UL Normal 0.00 - 0.50 [facility] Comment on above: Performed By: #### 2 93208 ####[facility],[address] [place] [address] 17030 Eosinophils/100 WBC (Bld) 2.3 % Normal 0.0 - 7.0 [facility] Comment on above: Performed By: #### 2 46148 ####[facility],[address] [place] [address] 17228 Erythrocyte distribution width (RBC) [Ratio] 14.1 % Normal 12.0 - 15.6 [facility] Comment on above: Performed By: #### 2 35071 ####[facility],[address] [place] [address] Hematocrit (Bld) [Volume fraction] 37.2 % Normal 34.0 - 46.0 [facility] Comment on above: Performed By: #### 2 38080 ####[facility],[address] [place] [address] Hemoglobin (Bld) [Mass/Vol] 12.7 g/dL Normal 12.0 - 16.0 [facility] Comment on above: Performed By: #### 2 11711 ####[facility],[address] [place] [address] Lymph # 1.96 x10EE3/UL Normal 0.80 - 2.80 [facility] Comment on above: Performed By: #### 2 41054 ####[facility],[address] [place] [address] Lymphocytes/100 WBC (Bld) 21.8 % Normal 20.0 - 45.0 [facility] Comment on above: Performed By: #### 2 25702 ####[facility],[address] [place] [address] MANUAL DIFF N/A Normal [facility] Comment on above: Performed By: #### 2 46156 ####[facility],[address] [place], [place] [id number] MCH (RBC) [Entitic mass] 33 pg Normal 27 - 33 [facility] Comment on above: Performed By: #### 2 46679 ####[facility],[address] [place], [place] [id number] MCHC 34 X10 3 Normal 32 - 36 [facility] Comment on above: Performed By: #### 2 06242 ####[facility],[address] [place], [place] [phone] MCV (RBC) [Entitic vol] 97 fL Normal 80 - 99 [facility] Comment on above: Performed By: #### 2 07856 ####[facility],[address] [place] [address] [place] # 0.86 x10EE3/UL Normal 0.20 - 1.00 [facility] Comment on above: Performed By: #### 2 55776 ####[facility],[address] [place] [address] 14674 MONOS % 9.6 % Normal 0.0 - 10.0 [facility] Comment on above: Performed By: #### 2 52539 ####[facility],[address] [place] [address] 18701 Morphology Efra (Bld) [Interp] N/A Normal [facility] Comment on above: Performed By: #### 2 05696 ####[facility],[address] [place] [address] 07691 Neut # 5.92 x10EE3/UL Normal 1.50 - 7.10 [facility] Comment on above: Performed By: #### 2 25327 ####[facility],[address] [place] [address] 17846 Neutrophils/100 WBC (Bld) 65.9 % Normal 46.0 - 76.0 [facility] Comment on above: Performed By: #### 2 16320 ####[facility],[address] [place] [address] 00824 PLATELET 388 x10EE3/UL Normal 150 - 450 [facility] Comment on above: Performed By: #### 2 44136 ####[facility],[address] [place] [address] 39529 Platelet mean volume (Bld) [Entitic vol] 7.3 fL Normal 6.6 - 10.5 [facility] Comment on above: Result Comment: AUTO MATED DIFFERENTIAL Performed By: #### 2 67178 ####[facility],[address] [place] [address] 61831 RBC 3.84 x 10EE6/UL Low 4.10 - 5.30 [facility] Comment on above: Performed By: #### 2 63533 ####[facility],[address] [place] [address] 13586 WBC 9.0 x 10EE3/UL Normal 4.5 - 10.8 [facility] Comment on above: Performed By: #### 2 76837 ####[facility],[address] [place] [address] 75411 CBLon 06-01-2025 CBL Normal [facility] CMP with eGFRon 06-01-2025 AGE 34 years Normal [facility] Comment on above: Performed By: #### 2 95234 ####[facility],[address] [place] [address] 76790 Albumin [Mass/Vol] 3.7 g/dL Normal 3.4 - 5.0 [facility] Comment on above: Performed By: #### 2 31050 ####[facility],[address] [place] [address] 14579 Albumin/Globulin [Mass ratio] 1.2 {ratio} Normal 0.9 - 1.6 [facility] Comment on above: Performed By: #### 2 48044 ####[facility],[address] [place] [address] 16207 ALK PHOS 68 U/L Normal 46 - 116 [facility] Comment on above: Performed By: #### 2 45460 ####[facility],[address] [place] [address] 09582 ALT [Catalytic activity/Vol] 22 U/L Normal 16 - 63 [facility] Comment on above: Performed By: #### 2 52839 ####[facility],[address] [place] [address] 20407 Anion gap [Moles/Vol] 13 mmol/L Normal 10 - 20 [facility] Comment on above: Performed By: #### 2 64008 ####[facility],[address] [place] [address] 01182 AST [Catalytic activity/Vol] 13 U/L Normal 13 - 39 [facility] Comment on above: Performed By: #### 2 78973 ####[facility],[address] [place] [address] 37725 B/C RATIO 12 ratio Normal 0 - 30 [facility] Comment on above: Performed By: #### 2 19031 ####[facility],[address] [place] [address] 24093 Bilirubin [Mass/Vol] 0.2 mg/dL Normal 0.2 - 1.0 [facility] Comment on above: Performed By: #### 2 00261 ####[facility],[address] [place] [address] 72952 Calcium [Mass/Vol] 9.2 mg/dL Normal 8.5 - 10.1 [facility] Comment on above: Performed By: #### 2 07921 ####[facility],[address] [place] [address] 83007 Chloride [Moles/Vol] 102 mmol/L Normal 98 - 107 [facility] Comment on above: Performed By: #### 2 73112 ####[facility],[address] [place] [address] 96046 CMP with eGFR Normal [facility] Comment on above: Result Comment: COMP REHENSIVE METABOLIC PANEL Performed By: #### 2 87825 ####[facility],[address] [place] [address] 84758 CO2 [Moles/Vol] 30.0 mmol/L Normal 21.0 - 32.0 [facility] Comment on above: Performed By: #### 2 23393 ####[facility],[address] [place] [address] 99134 Creatinine [Mass/Vol] 1.05 mg/dL High 0.55 - 1.02 [facility] Comment on above: Performed By: #### 2 40087 ####[facility],[address] [place] [address] 82452 eGFR 59 ML/MINUTE Low 60 - 999 [facility] Comment on above: Performed By: #### 2 41953 ####[facility],[address] [place] [address] 36490 GFR/1.73 sq M.predicted among non-blacks MDRD (S/P/Bld) [Vol rate/Area] mL/min/{1.73_m2} Normal 60 - 999 [facility] Comment on above: Result Comment: ACCO RDING TO THE NATIONAL KIDNEY DISEASE EDUCATION PROGRAM(NKDE), A NORMAL eGFRIS A VALUE GREATER THAN OR EQUAL TO 60 ML/MIN/1.73 SQ METERS.CHRONIC KIDNEY DISEASE: <60mL/MIN/1.73 SQ METERSKIDNEY FAILURE: <15mL/MIN/1.73 SQ METERSTHIS TEST SHOULD ONLY BE USED FOR PATIENTS 18 YEARS OF AGE AND OLDER. Performed By: #### 2 12668 ####[facility],[address] [place] [address] 89302 Globulin (S) [Mass/Vol] 3.2 g/dL Normal 1.5 - 3.8 [facility] Comment on above: Performed By: #### 2 64128 ####[facility],[address] [place] [address] 39160 Glucose [Mass/Vol] 91 mg/dL Normal 74 - 106 [facility] Comment on above: Performed By: #### 2 03089 ####[facility],[address] [place] [address] 96909 Potassium [Moles/Vol] 3.9 mmol/L Normal 3.5 - 5.1 [facility] Comment on above: Performed By: #### 2 92542 ####[facility],[address] [place] [address] 25322 Protein [Mass/Vol] 6.9 g/dL Normal 6.4 - 8.2 [facility] Comment on above: Performed By: #### 2 41334 ####[facility],[address] [place] [address] 60779 Sodium [Moles/Vol] 141 mmol/L Normal 136 - 145 [facility] Comment on above: Performed By: #### 2 08390 ####[facility],[address] [place] [address] 79079 Urea nitrogen [Mass/Vol] 13 mg/dL Normal 7 - 18 [facility] Comment on above: Performed By: #### 2 21026 ####[facility],[address] [place] [address] 33786 ED MED ADMINISTRATION DETAIL on 06-01-2025 ED MED ADMINISTRATION DETAIL Normal [facility] ED NURSES CLINICAL NOTEon ED NURSES CLINICAL NOTE Normal [facility] ED ORDER SHEET (CPOE ONLY)on 06-01-2025 ED ORDER SHEET (CPOE ONLY) Normal [facility] ED PHYSICIAN CLINICAL REPORT on 06-01-2025 ED PHYSICIAN CLINICAL REPORT Normal [facility] ED SUPER BILLon 06-01-2025 ED SUPER BILL Normal [facility] ED VISIT SUMMARYon 5 ED VISIT SUMMARY Normal [facility] ED VITALS FLOW SHEETon 06-01 ED VITALS FLOW SHEET Normal [facility] LACTATEon 06-01-2025 Lactate [Moles/Vol] 0.7 mmol/L Normal 0.4 - 2.0 [facility] Comment on above: Performed By: #### 2 14182 ####[facility],[address] [place] [address] 13837 PREG SERUM QUANTon 5 HCG QUANTITATIVE 3 Normal [facility] Comment on above: Result Comment: Refe deanne Range: Male: <5 Female: Non: <5 1 [...] 3RD TRIMESTER 1000-50,000 Performed By: #### 2 66304 ####[facility],[address] [place] [address] SERUM QUALon 06-01 EXTERNAL QC DONE? YES Normal [facility] Comment on above: Performed By: #### 2 54031 ####[facility],[address] [place] [address] INTERNAL QC PASS Normal [facility] Comment on above: Performed By: #### 2 95111 ####[facility],[address] [place] [address] SER Positive Normal NEGATIVE [facility] Comment on above: Result Comment: A FA INT LINE APPEARED ON TEST LINE, BUT THQUANTITATIVE RESULT WAS ONLY 3 MIU/ML. Performed By: #### 2 01512 ####[facility],[address] [place] [address] TROPONINon 06-01-2025 HS TROPONIN <4.0 Normal 0.0 - 51.4 [facility] Comment on above: Performed By: #### 2 87581 ####[facility],[address] [place] [address] .Auto Diffon 05-30-2025 Basophil, Absolute 0.1 10 3/mcL Normal 0.0-0.3 [facility] Comment on above: Performed By: #### G FR, ADIFF, ANEU, CBC, BMP ####[facility] [place] [address] 43108 Basophils/100 WBC (Bld) 0.9 % Normal 0.0-2.5 [facility] Comment on above: Performed By: #### G FR, ADIFF, ANEU, CBC, BMP ####[facility] [place] [address] 90589 Eosinophil, Absolute 0.3 10 3/mcL Normal 0.0-0.[address] [facility] Comment on above: Performed By: #### G FR, ADIFF, ANEU, CBC, BMP ####[address] [address] Eosinophils/100 WBC (Bld) 3.9 % Normal 0.0-6.0 [facility] Comment on above: Performed By: #### G FR, ADIFF, ANEU, CBC, BMP ####[address] [address] Lymphocyte, Absolute 2.2 10 3/mcL Normal 0.9-4.[address] [facility] Comment on above: Performed By: #### G FR, ADIFF, ANEU, CBC, BMP ####[address] [address] Lymphocytes/100 WBC (Bld) 27.4 % Normal 20.0-40.0 [facility] Comment on above: Performed By: #### G FR, ADIFF, ANEU, CBC, BMP ####[address] [address] Monocyte, Absolute 0.9 10 3/mcL Normal 0.1-1.4 [facility] Comment on above: Performed By: #### G FR, ADIFF, ANEU, CBC, BMP ####[address] [address] Monocytes/100 WBC (Bld) 11.1 % Normal 2.0-13.0 [facility] Comment on above: Performed By: #### G FR, ADIFF, ANEU, CBC, BMP ####[address] 8[address]64 Neutrophils/100 WBC (Bld) 56.7 % Normal 50.0-75.0 [facility] Comment on above: Performed By: #### G FR, ADIFF, ANEU, CBC, BMP ####[address] [address] .GFRon 05-30-2025 Estimated Glomerular Filtration Rate 91 ml/min/1.73sqm [facility] Comment on above: Result Comment: Stag [...] #### G FR, ADIFF, ANEU, CBC, BMP ####[address] [address] .NEUABSon 05-30-2025 Neutrophil, Absolute 4.5 10 3/mcL Normal 2.3-8.[address] [facility] Comment on above: Performed By: #### G FR, ADIFF, ANEU, CBC, BMP ####[address] [address] BMPon 05-30-2025 BUN/Creatinine Ratio 10.6 ratio Normal 10.0-22.0 [facility] Comment on above: Performed By: #### G FR, ADIFF, ANEU, CBC, BMP ####[address] [address] Calcium [Mass/Vol] 9.1 mg/dL Normal 8.7-10.4 [facility] Comment on above: Performed By: #### G FR, ADIFF, ANEU, CBC, BMP ####[address] [address] Chloride [Moles/Vol] 111 mmol/L High 98-110 [facility] Comment on above: Performed By: #### G FR, ADIFF, ANEU, CBC, BMP ####[address] [address]284 CO2 [Moles/Vol] 26 mmol/L Normal 22-32 [facility] Comment on above: Performed By: #### G FR, ADIFF, ANEU, CBC, BMP ####[address] [address] Creatinine [Mass/Vol] 0.85 mg/dL Normal 0.50-1.20 [facility] Comment on above: Result Comment: Test ing performed on Cortexica analyzer using enzymatic creatinine methodology. Performed By: #### G FR ADMACEY ANEU, CBC, BMP ####[address] [address] Electrolyte Balance 6.0 mEq/L Normal 4.0-15.0 [facility] Comment on above: Performed By: #### G , ADMACEY ANEU, CBC, BMP ####[address] [address] Glucose [Mass/Vol] 90 mg/dL Normal 70-110 [facility] Comment on above: Performed By: #### G CHEN VALDES ANEU, CBC, BMP ####[address] [address] Potassium [Moles/Vol] 4.2 mmol/L Normal 3.5-5.0 [facility] Comment on above: Performed By: #### Deondre VALDES, CHEN ANEU, CBC, BMP ####[place] [address] Sodium [Moles/Vol] 143 mmol/L Normal 136-145 [facility] Comment on above: Performed By: #### G , CHEN ANEU, CBC, BMP ####[place] [address] Urea nitrogen [Mass/Vol] 9.0 mg/dL Normal 8.0-22.0 [facility] Comment on above: Performed By: #### G CHEN VALDES ANEU, CBC, BMP ####[address] [address] CBCon 05-30-2025 Erythrocyte distribution width (RBC) [Ratio] 15.1 % Normal 11.5-15.5 [facility] Comment on above: Performed By: #### G FR, ADIFF, ANEU, CBC, BMP ####[address] [address] Hematocrit (Bld) [Volume fraction] 38.6 % Normal 34.0-46.0 [facility] Comment on above: Performed By: #### G FR, ADIFF, ANEU, CBC, BMP ####[place] [address] Hgb 13.0 G/dL Normal 12.0-16.0 [facility] Comment on above: Performed By: #### G FR, ADIFF, ANEU, CBC, BMP ####[place] [address] MCH (RBC) [Entitic mass] 33.0 pg Normal 27.0-33.0 [facility] Comment on above: Performed By: #### G FR, ADIFF, ANEU, CBC, BMP ####[place] [address] MCHC 33.7 G/dL Normal 32.0-36.0 [facility] Comment on above: Performed By: #### G FR, ADIFF, ANEU, CBC, BMP ####[place] [address] MCV (RBC) [Entitic vol] 97.8 fL Normal 80.0-99.0 [facility] Comment on above: Performed By: #### G FR, ADIFF, ANEU, CBC, BMP ####[place] [address] Platelet 310 10 3/mcL Normal 150-450 [facility] Comment on above: Performed By: #### G FR, ADIFF, ANEU, CBC, BMP ####[place] [address] Platelet mean volume (Bld) [Entitic vol] 7.9 fL Normal 6.6-10.5 [facility] Comment on above: Performed By: #### G FR, ADIFF, ANEU, CBC, BMP ####[place] [address] RBC 3.95 10 6/mcL Low 4.10-5.30 [facility] Comment on above: Performed By: #### G FR, ADIFF, ANEU, CBC, BMP ####[place] [address] WBC 7.9 10 3/mcL Normal 4.5-10.8 [facility] Comment on above: Performed By: #### G FR, ADIFF, ANEU, CBC, BMP ####[place] [address] LABORATORYOrdered By: SYSTEM SYSTEM on 05-30-2025 Basophils [...] above: Interpretive Data: T esting performed on Cortexica analyzer using enzymatic creatinine methodology. Electrolyte Balance [...] 90 mg/dL Normal 70 - 110 mg/dL AH [...] 33.7 G/dL Normal 32.0 - 36.0 G/dL Workflow [...] mEq/L AH ADM SS RBC (Bld) [#/Vol] 3.95 106/mcL [...] Basophil, Absolute 0.1 10 3/mcL Normal 0.0-0.3 [facility] Comment on above: Performed By: #### C BC, ADIFF, BMP, GFR, ANEU ####[address] [address] Basophils/100 WBC (Bld) 1.0 % Normal 0.0-2.5 [facility] Comment on above: Performed By: #### C BC, ADIFF, BMP, GFR, ANEU ####[address] [address] Eosinophil, Absolute 0.2 10 3/mcL Normal 0.0-0.[address] [facility] Comment on above: Performed By: #### C BC, ADIFF, BMP, GFR, ANEU ####[address] [address] Eosinophils/100 WBC (Bld) 2.4 % Normal 0.0-6.0 [facility] Comment on above: Performed By: #### C BC, ADIFF, BMP, GFR, ANEU ####[address] [address] Lymphocyte, Absolute 1.7 10 3/mcL Normal 0.9-4.[address] [facility] Comment on above: Performed By: #### C BC, ADIFF, BMP, GFR, ANEU ####[address] [address] Lymphocytes/100 WBC (Bld) 20.8 % Normal 20.0-40.0 [facility] Comment on above: Performed By: #### C BC, ADIFF, BMP, GFR, ANEU ####[address] [address] Monocyte, Absolute 0.6 10 3/mcL Normal 0.1-1.4 [facility] Comment on above: Performed By: #### C BC, ADIFF, BMP, GFR, ANEU ####[address] [address] Monocytes/100 WBC (Bld) 7.7 % Normal 2.0-13.0 [facility] Comment on above: Performed By: #### C BC, ADIFF, BMP, GFR, ANEU ####[address] [address] Neutrophils/100 WBC (Bld) 68.1 % Normal 50.0-75.0 [facility] Comment on above: Performed By: #### C BC, ADIFF, BMP, GFR, ANEU ####[address] [address] .GFRon 05-29-2025 Estimated Glomerular Filtration Rate 99 ml/min/1.73sqm Normal [facility] Comment on above: Result [...] #### C BC, ADIFF, BMP, GFR, ANEU ####[address] [address] .NEUABSon 05-29-2025 Neutrophil, Absolute 5.7 10 3/mcL Normal 2.3-8.[address] [facility] Comment on above: Performed By: #### C BC, ADIFF, BMP, GFR, ANEU ####[address] [address] BMPon 05-29-2025 BUN/Creatinine Ratio 6.3 ratio Low 10.0-22.0 [facility] Comment on above: Performed By: #### C BC, ADIFF, BMP, GFR, ANEU ####[address] [address] Calcium [Mass/Vol] 9.4 mg/dL Normal 8.7-10.4 [facility] Comment on above: Performed By: #### C BC, ADIFF, BMP, GFR, ANEU ####[address] [address] Chloride [Moles/Vol] 110 mmol/L Normal 98-110 [facility] Comment on above: Performed By: #### C BC, ADIFF, BMP, GFR, ANEU ####[address] [address] CO2 [Moles/Vol] 23 mmol/L Normal 22-32 [facility] Comment on above: Performed By: #### C BC, ADIFF, BMP, GFR, ANEU ####[place] [id number] Creatinine [Mass/Vol] 0.79 mg/dL Normal 0.50-1.20 [facility] Comment on above: Result Comment: Test ing performed on Cortexica analyzer using enzymatic creatinine methodology. Performed By: #### C BC, ADIFF, BMP, GFR, ANEU ####[address] [address] Electrolyte Balance 9.0 mEq/L Normal 4.0-15.0 [facility] Comment on above: Performed By: #### C BC, ADIFF, BMP, GFR, ANEU ####[address] [address] Glucose [Mass/Vol] 98 mg/dL Normal 70-110 [facility] Comment on above: Performed By: #### C BC, ADIFF, BMP, GFR, ANEU ####[address] [address] Potassium [Moles/Vol] 4.2 mmol/L Normal 3.5-5.0 [facility] Comment on above: Performed By: #### C BC, ADIFF, BMP, GFR, ANEU ####[address] [address] Sodium [Moles/Vol] 142 mmol/L Normal 136-145 [facility] Comment on above: Performed By: #### C BC, ADIFF, BMP, GFR, ANEU ####[place] [address] Urea nitrogen [Mass/Vol] 5.0 mg/dL Low 8.0-22.0 [facility] Comment on above: Performed By: #### C BC, ADIFF, BMP, GFR, ANEU ####[place] [address] CBCon 05-29-2025 Erythrocyte distribution width (RBC) [Ratio] 15.8 % High 11.5-15.5 [facility] Comment on above: Performed By: #### C BC, ADIFF, BMP, GFR, ANEU ####[place] [address] Hematocrit (Bld) [Volume fraction] 39.3 % Normal 34.0-46.0 [facility] Comment on above: Performed By: #### C BC, ADIFF, BMP, GFR, ANEU ####[place] [address] Hgb 13.2 G/dL Normal 12.0-16.0 [facility] Comment on above: Performed By: #### C BC, ADIFF, BMP, GFR, ANEU ####[place] [address] MCH (RBC) [Entitic mass] 33.0 pg Normal 27.0-33.0 [facility] Comment on above: Performed By: #### C BC, ADIFF, BMP, GFR, ANEU ####[place] [address] MCHC 33.6 G/dL Normal 32.0-36.0 [facility] Comment on above: Performed By: #### C BC, ADIFF, BMP, GFR, ANEU ####[place] [address] MCV (RBC) [Entitic vol] 98.2 fL Normal 80.0-99.0 [facility] Comment on above: Performed By: #### C BC, ADIFF, BMP, GFR, ANEU ####[place] [address] Platelet 316 10 3/mcL Normal 150-450 [facility] Comment on above: Performed By: #### C BC, ADIFF, BMP, GFR, ANEU ####[place] [id number] [place] [address] Platelet mean volume (Bld) [Entitic vol] 7.8 fL Normal 6.6-10.5 [facility] Comment on above: Performed By: #### C BC, ADIFF, BMP, GFR, ANEU ####[address] [address] RBC 4.00 10 6/mcL Low 4.10-5.30 [facility] Comment on above: Performed By: #### C BC, ADIFF, BMP, GFR, ANEU ####[address] [address] WBC 8.3 10 3/mcL Normal 4.5-10.8 [facility] Comment on above: Performed By: #### C BC, ADIFF, BMP, GFR, ANEU ####[place] [address] CURon 05-29-2025 [facility]IN [...] above: Interpretive Data: T esting performed on Cortex[employer] analyzer using enzymatic creatinine methodology. Electrolyte Balance 9.0 mEq/L Normal 4.0 - 15 .0 mEq/L AH ADM SS Eosinophils (Bld) [#/Vol] 0.2 103/mcL Normal 0.0 - 0.7 10^3/mcL AH Workflow SS Eosinophils/100 WBC (Bld) 2.4 % Normal 0.0 - 6.0 % AH [...] 68.1 % Normal 50.0 - 75.0 % Workflow SS Platelet mean volume (Bld) [Entitic vol] 7.8 fL Normal 6.6 - 10.5 fL AH Workflow SS Platelets (Bld) [#/Vol] 316 103/mcL Normal 150 - 450 10^3/mcL AH Workflow SS Potassium [Moles/Vol] 4.2 mmol/L Normal 3.5 - 5.0 mEq/L ADM SS RBC (Bld) [#/Vol] 4.00 106/mcL Low 4.10 - 5.3 0 10^6/mcL AH Workflow SS Sodium [Moles/Vol] 142 mmol/L Normal 136 - 145 mEq/L ADM SS Urea nitrogen [Mass/Vol] 5.0 mg/dL Low 8.0 - 22.0 mg/dL ADM SS Urea nitrogen/Creatinine [Mass ratio] 6.3 ratio Low 10.0 - 22.0 ratio ADM SS WBC (Bld) [#/Vol] 8.3 103/mcL Normal 4.5 - 10.8 10^3/mcL Workflow SS URINE CULTURE [CCL]on 2024 Bacteria identified Cx Nom (U) Normal [facility] Comment on above: Performed By: #### 2 [id number] ####[facility],[address] [place] [address] .Auto Diffon 05-28-2025 Basophil, Absolute 0.1 10 3/mcL Normal 0.0-0.3 [facility] Comment on above: Performed By: #### G FR, ANEU, CBC, ADIFF, CMP ####[address] [address] Basophils/100 WBC (Bld) 1.5 % Normal 0.0-2.5 [facility] Comment on above: Performed By: #### G FR, ANEU, CBC, ADIFF, CMP ####[address] [address] Eosinophil, Absolute 0.2 10 3/mcL Normal 0.0-0.[address] [facility] Comment on above: Performed By: #### G FR, ANEU, CBC, ADIFF, CMP ####[address] [address] Eosinophils/100 WBC (Bld) 2.6 % Normal 0.0-6.0 [facility] Comment on above: Performed By: #### G FR, ANEU, CBC, ADIFF, CMP ####[address] [address] Lymphocyte, Absolute 2.2 10 3/mcL Normal 0.9-4.[address] [facility] Comment on above: Performed By: #### G FR, ANEU, CBC, ADIFF, CMP ####[address] [address] Lymphocytes/100 WBC (Bld) 30.4 % Normal 20.0-40.0 [facility] Comment on above: Performed By: #### G FR, ANEU, CBC, ADIFF, CMP ####[address] [address] Monocyte, Absolute 0.6 10 3/mcL Normal 0.1-1.4 [facility] Comment on above: Performed By: #### G FR, ANEU, CBC, ADIFF, CMP ####[address] [address] Monocytes/100 WBC (Bld) 8.1 % Normal 2.0-13.0 [facility] Comment on above: Performed By: #### G FR, ANEU, CBC, ADIFF, CMP ####[address] [address] Neutrophils/100 WBC (Bld) 57.4 % Normal 50.0-75.0 [facility] Comment on above: Performed By: #### G FR, ANEU, CBC, ADIFF, CMP ####[address] [address] .GFRon 05-28-2025 Estimated Glomerular Filtration Rate 88 ml/min/1.73sqm Normal [facility] Comment on above: Result [...] #### G FR, ANEU, CBC, ADIFF, CMP ####[place] [address] .NEUABSon 05-28-2025 Neutrophil, Absolute 4.2 10 3/mcL Normal 2.3-8.[address] [facility] Comment on above: Performed By: #### G FR, ANEU, CBC, ADIFF, CMP ####[place] [address] CBCon 05-28-2025 Erythrocyte distribution width (RBC) [Ratio] 15.2 % Normal 11.5-15.5 [facility] Comment on above: Performed By: #### G FR, ANEU, CBC, ADIFF, CMP ####[place] [address] Hematocrit (Bld) [Volume fraction] 34.4 % Normal 34.0-46.0 [facility] Comment on above: Performed By: #### G FR, ANEU, CBC, ADIFF, CMP ####[place] [address] Hgb 11.7 G/dL Low 12.0-16.0 [facility] Comment on above: Performed By: #### G FR, ANEU, CBC, ADIFF, CMP ####[place] [address] MCH (RBC) [Entitic mass] 33.2 pg High 27.0-33.0 [facility] Comment on above: Performed By: #### G FR, ANEU, CBC, ADIFF, CMP ####[place] [address] MCHC 34.0 G/dL Normal 32.0-36.0 [facility] Comment on above: Performed By: #### G FR, ANEU, CBC, ADIFF, CMP ####[place] [address] MCV (RBC) [Entitic vol] 97.8 fL Normal 80.0-99.0 [facility] Comment on above: Performed By: #### G FR, ANEU, CBC, ADIFF, CMP ####[place] [address] Platelet 313 10 3/mcL Normal 150-450 [facility] Comment on above: Performed By: #### G FR, ANEU, CBC, ADIFF, CMP ####[place] [address] Platelet mean volume (Bld) [Entitic vol] 7.0 fL Normal 6.6-10.5 [facility] Comment on above: Performed By: #### G FR, ANEU, CBC, ADIFF, CMP ####[place] [address] RBC 3.52 10 6/mcL Low 4.10-5.30 [facility] Comment on above: Performed By: #### G FR, ANEU, CBC, ADIFF, CMP ####[place] [address] WBC 7.4 10 3/mcL Normal 4.5-10.8 [facility] Comment on above: Performed By: #### G FR, ANEU, CBC, ADIFF, CMP ####[place] [address] CMPon 05-28-2025 Albumin Level 3.1 G/dL Low 3.2-4.8 [facility] Comment on above: Performed By: #### G FR, ANEU, CBC, ADIFF, CMP ####[place] [address] Albumin/Globulin [Mass ratio] 1.3 {ratio} Normal 0.9-1.6 [facility] Comment on above: Performed By: #### G FR, ANEU, CBC, ADIFF, CMP ####[place] [address] ALP [Catalytic activity/Vol] 59 U/L Normal 38-126 [facility] Comment on above: Performed By: #### G FR, ANEU, CBC, ADIFF, CMP ####[place] [address] ALT [Catalytic activity/Vol] 10 U/L Normal 10-49 [facility] Comment on above: Performed By: #### G FR, ANEU, CBC, ADIFF, CMP ####[place] [address] AST [Catalytic activity/Vol] 15 U/L Normal 8-34 [facility] Comment on above: Performed By: #### G FR, ANEU, CBC, ADIFF, CMP ####[place] [address] Bili Total 0.30 mg/dL Normal 0.20-1.20 [facility] Comment on above: Result Comment: Use of this assay is not recommended for patients undergoing treatment with eltrombopag due to the potential for falsely elevated results. Performed By: #### G FR, ANEU, CBC, ADIFF, CMP ####[place] [address] BUN/Creatinine Ratio 12.6 ratio Normal 10.0-22.0 [facility] Comment on above: Performed By: #### G FR, ANEU, CBC, ADIFF, CMP ####[place] [address] Calcium [Mass/Vol] 8.5 mg/dL Low 8.7-10.4 [facility] Comment on above: Performed By: #### G FR, ANEU, CBC, ADIFF, CMP ####[place] [address] Chloride [Moles/Vol] 111 mmol/L High 98-110 [facility] Comment on above: Performed By: #### G FR, ANEU, CBC, ADIFF, CMP ####[place] [address] CO2 [Moles/Vol] 24 mmol/L Normal 22-32 [facility] Comment on above: Performed By: #### G FR, ANEU, CBC, ADIFF, CMP ####[place] [id number] Creatinine [Mass/Vol] 0.87 mg/dL Normal 0.50-1.20 [facility] Comment on above: Result Comment: Test ing performed on Cortexica analyzer using enzymatic creatinine methodology. Performed By: #### G FR, ANEU, CBC, ADIFF, CMP ####[address] [address] Electrolyte Balance 8.0 mEq/L Normal 4.0-15.0 [facility] Comment on above: Performed By: #### G FR, ANEU, CBC, ADIFF, CMP ####[address] [address] Globulin 2.4 G/dL Low 2.5-4.2 [facility] Comment on above: Performed By: #### G FR, ANEU, CBC, ADIFF, CMP ####[place] [address] Glucose [Mass/Vol] 91 mg/dL Normal 70-110 [facility] Comment on above: Performed By: #### G FR, ANEU, CBC, ADIFF, CMP ####[place] [address] Potassium [Moles/Vol] 3.6 mmol/L Normal 3.5-5.0 [facility] Comment on above: Performed By: #### G FR, ANEU, CBC, ADIFF, CMP ####[place] [address] Sodium [Moles/Vol] 143 mmol/L Normal 136-145 [facility] Comment on above: Performed By: #### G FR, ANEU, CBC, ADIFF, CMP ####[place] [address] Total Protein 5.5 G/dL Low 5.7-8.2 [facility] Comment on above: Performed By: #### G FR, ANEU, CBC, ADIFF, CMP ####[place] [address] Urea nitrogen [Mass/Vol] 11.0 mg/dL Normal 8.0-22.0 [facility] Comment on above: Performed By: #### G FR, ANEU, CBC, ADIFF, CMP ####[place] [address] LABORATORYOrdered By: SYSTEM SYSTEM on 05-28-2025 Albumin BCP dye [Mass/Vol] 3.1 G/dL Low 3.2 - 4.8 G/dL AH ADM SS Albumin/Globulin [Mass ratio] 1.3 {ratio} Normal 0.9 - 1.6 ratio AH ADM SS ALP [Catalytic activity/Vol] 59 U/L Normal 38 - 126 U/L AH ADM SS ALT No additional P-5'-P [Catalytic activity/Vol] 10 U/L Normal 10 - 49 U/L AH ADM SS AST [Catalytic activity/Vol] 15 U/L Normal 8 - 34 U/L AH ADM SS Basophils (Bld) [#/Vol] 0.1 103/mcL Normal 0.0 - 0.3 10^3/mcL AH Workflow SS Basophils/100 WBC (Bld) 1.5 % Normal 0.0 - 2.5 % AH [...] above: Interpretive Data: T esting performed on Cortexica analyzer using enzymatic creatinine methodology. Electrolyte Balance 8.0 mEq/L Normal 4.0 - 15 .0 mEq/L AH ADM SS Eosinophils (Bld) [#/Vol] 0.2 103/mcL Normal 0.0 - 0.7 10^3/mcL AH Workflow SS Eosinophils/100 WBC (Bld) 2.6 % Normal 0.0 - 6.0 % AH [...] Comment on above: Interpretive Data: Charlie ambrosio [employer] (CHEST, 1991, 102:[id number]) [...] 12.6 ratio Normal 10.0 - 22.0 ratio ADM SS WBC (Bld) [#/Vol] 7.4 103/mcL Normal 4.5 - 10.8 10^3/mcL Workflow SS MGon 05-28-2025 Magnesium [Mass/Vol] 1.9 mg/dL Normal 1.6-2.4 [facility] Comment on above: Performed By: #### P RO, MG ####[place] [address] PROon 05-28-2025 INR Coag (PPP) [Relative time] 1.1 {INR} Normal [facility] Comment on above: Result Comment: [employer] (CHEST, 1991, 102:[id number])recommended therapeutic range for oral anticoagulant therapy is:LOW RISK: Prophylaxis of venous thrombosis INR: 2.0-3.0 Treatment of pulmonary embolism 2.0-3.0 Prevention of systemic embolism 2.0-3.0HIGH RISK: Mechanical prosthetic valves 2.5-3.5 Performed By: #### P RO, MG ####[place] [address] PT Coag (PPP) [Time] 12.8 s Normal 9.0-14.4 [facility] Comment on above: Result Comment: Effe ctive 05/17/08, Protime results may be affected by some antibiotics (i.e. Ciprofloxacin, Azithromycin, Bactrim) which may potentiate the action of oral anticoagulants, with further increases in Protime/INR. Performed By: #### P RO, MG ####[place] [address] .Auto Diffon 05-27-2025 Basophil, Absolute 0.1 10 3/mcL Normal 0.0-0.3 [facility] Comment on above: Performed By: #### L AC, ADIFF, GFR, CBC, ANEU, BMP, YOUNG ####[place] [address] Basophils/100 WBC (Bld) 0.8 % Normal 0.0-2.5 [facility] Comment on above: Performed By: #### L AC, ADIFF, GFR, CBC, ANEU, BMP, YOUNG ####[place] [address] Eosinophil, Absolute 0.1 10 3/mcL Normal 0.0-0.[address] [facility] Comment on above: Performed By: #### L AC, ADIFF, GFR, CBC, ANEU, BMP, YOUNG ####[address] [address] Eosinophils/100 WBC (Bld) 1.4 % Normal 0.0-6.0 [facility] Comment on above: Performed By: #### L AC, ADIFF, GFR, CBC, ANEU, BMP, YOUNG ####[address] [address] Lymphocyte, Absolute 2.4 10 3/mcL Normal 0.9-4.[address] [facility] Comment on above: Performed By: #### L AC, ADIFF, GFR, CBC, ANEU, BMP, YOUNG ####[address] [address] Lymphocytes/100 WBC (Bld) 22.7 % Normal 20.0-40.0 [facility] Comment on above: Performed By: #### L AC, ADIFF, GFR, CBC, ANEU, BMP, YOUNG ####[address] [address] Monocyte, Absolute 0.7 10 3/mcL Normal 0.1-1.4 [facility] Comment on above: Performed By: #### L AC, ADIFF, GFR, CBC, ANEU, BMP, YOUNG ####[address] [address] Monocytes/100 WBC (Bld) 6.5 % Normal 2.0-13.0 [facility] Comment on above: Performed By: #### L AC, ADIFF, GFR, CBC, ANEU, BMP, YOUNG ####[address] [address] Neutrophils/100 WBC (Bld) 68.6 % Normal 50.0-75.0 [facility] Comment on above: Performed By: #### L AC, ADIFF, GFR, CBC, ANEU, BMP, YOUNG ####[address] [address] .GFRon 05-27-2025 Estimated Glomerular Filtration Rate 81 ml/min/1.73sqm Normal [facility] Comment on above: Result [...] AC, ADIFF, GFR, CBC, ANEU, BMP, MDW ####[address] [address] .MDWon 05-27-2025 Monocyte Distribution Width 20.07 High 0.00-20.00 [facility] Comment on above: Result Comment: For adults in ED, MDW>20.0 may be associated with a higher risk of sepsis during the first 12hrs of hospital admission Performed By: #### L AC, ADIFF, GFR, CBC, ANEU, BMP, MDW ####[address] [address] .NEUABSon 05-27-2025 Neutrophil, Absolute 7.3 10 3/mcL Normal 2.3-8.[address] [facility] Comment on above: Performed By: #### L AC, ADIFF, GFR, CBC, ANEU, BMP, MDW ####[address] [address] [facility] BUN/Creatinine Ratio 12.8 ratio Normal 10.0-22.0 [facility] Comment on above: Performed By: #### L AC, ADIFF, GFR, CBC, ANEU, BMP, MDW ####[address] [address] Calcium [Mass/Vol] 9.1 mg/dL Normal 8.7-10.4 [facility] Comment on above: Performed By: #### L AC, ADIFF, GFR, CBC, ANEU, BMP, MDW ####[address] [address] Chloride [Moles/Vol] 111 mmol/L High 98-110 [facility] Comment on above: Performed By: #### L AC, ADIFF, GFR, CBC, ANEU, BMP, YOUNG ####[address] [address] CO2 [Moles/Vol] 24 mmol/L Normal 22-32 [facility] Comment on above: Performed By: #### L AC, ADIFF, GFR, CBC, ANEU, BMP, YOUNG ####[place] [address] Creatinine [Mass/Vol] 0.94 mg/dL Normal 0.50-1.20 [facility] Comment on above: Result Comment: Test ing performed on Cortexica analyzer using enzymatic creatinine methodology. Performed By: #### L AC, ADIFF, GFR, CBC, ANEU, BMP, YOUNG ####[place] [address] Electrolyte Balance 6.0 mEq/L Normal 4.0-15.0 [facility] Comment on above: Performed By: #### L AC, ADIFF, GFR, CBC, ANEU, BMP, YOUNG ####[place] [address] Glucose [Mass/Vol] 95 mg/dL Normal 70-110 [facility] Comment on above: Performed By: #### L AC, ADIFF, GFR, CBC, ANEU, BMP, YOUNG ####[place] [address] Potassium [Moles/Vol] 4.3 mmol/L Normal 3.5-5.0 [facility] Comment on above: Performed By: #### L AC, ADIFF, GFR, CBC, ANEU, BMP, YOUNG ####[place] [address] Sodium [Moles/Vol] 141 mmol/L Normal 136-145 [facility] Comment on above: Performed By: #### L AC, ADIFF, GFR, CBC, ANEU, BMP, W ####[place] [address] Urea nitrogen [Mass/Vol] 12.0 mg/dL Normal 8.0-22.0 [facility] Comment on above: Performed By: #### L AC, ADIFF, GFR, CBC, ANEU, BMP, MDW ####[place] [address] CBCon 05-27-2025 Erythrocyte distribution width (RBC) [Ratio] 15.4 % Normal 11.5-15.5 [facility] Comment on above: Performed By: #### L AC, ADIFF, GFR, CBC, ANEU, BMP, MDW ####[place] [address] Hematocrit (Bld) [Volume fraction] 40.0 % Normal 34.0-46.0 [facility] Comment on above: Performed By: #### L AC, ADIFF, GFR, CBC, ANEU, BMP, MDW ####[place] [address] Hgb 13.4 G/dL Normal 12.0-16.0 [facility] Comment on above: Performed By: #### L AC, ADIFF, GFR, CBC, ANEU, BMP, MDW ####[place] [address] MCH (RBC) [Entitic mass] 32.6 pg Normal 27.0-33.0 [facility] Comment on above: Performed By: #### L AC, ADIFF, GFR, CBC, ANEU, BMP, MDW ####[place] [address] MCHC 33.4 G/dL Normal 32.0-36.0 [facility] Comment on above: Performed By: #### L AC, ADIFF, GFR, CBC, ANEU, BMP, MDW ####[place] [address] MCV (RBC) [Entitic vol] 97.3 fL Normal 80.0-99.0 [facility] Comment on above: Performed By: #### L AC, ADIFF, GFR, CBC, ANEU, BMP, MDW ####[place] [address] Platelet 357 10 3/mcL Normal 150-450 [facility] Comment on above: Performed By: #### L AC, ADIFF, GFR, CBC, ANEU, ZENOBIA, YOUNG ####[place] [id number] [place] [address] Platelet mean volume (Bld) [Entitic vol] 7.2 fL Normal 6.6-10.5 [facility] Comment on above: Performed By: #### L AC, ADIFF, GFR, CBC, ANEU, BMP, YOUNG ####[place] [address] RBC 4.11 10 6/mcL Normal 4.10-5.30 [facility] Comment on above: Performed By: #### L AC, ADIFF, GFR, CBC, ANEU, BMP, YOUNG ####[place] [id number] [place] [address] WBC 10.6 10 3/mcL Normal 4.5-10.8 [facility] Comment on above: Performed By: #### L AC, ADIFF, GFR, CBC, ANEU, BMP, YOUNG ####[place] [address] ED MED ADMINISTRATION DETAIL on 05-27-2025 ED MED ADMINISTRATION DETAIL Normal [facility] ED NURSES CLINICAL NOTEon ED NURSES CLINICAL NOTE Normal [facility] ED ORDER SHEET (CPOE ONLY)on 05-27-2025 ED ORDER SHEET (CPOE ONLY) Normal [facility] ED PHYSICIAN CLINICAL REPORT on 05-27-2025 ED PHYSICIAN CLINICAL REPORT Normal [facility] ED SUPER BILLon 05-27-2025 ED SUPER BILL Normal [facility] ED VISIT SUMMARYon ED VISIT SUMMARY Normal [facility] ED VITALS FLOW SHEETon 05-27 ED VITALS FLOW SHEET Normal [facility] LABORATORYOrdered By: Bassam Dixon on 05-27-2025 Appearance [...] test) Ql (U) Negative (05/27/25 5:04 PM) [facility] Work Phone: LACon 05-27-2025 Lactic Acid Lvl 0.7 mmol/L Normal 0.5-2.2 [facility] Comment on above: Performed By: #### L AC, ADIFF, GFR, CBC, ANEU, BMP, MDW ####[place] [address] No Panel Informationon 05-27 Microscopic examination of blood, culture Culture has been received in lab and is no growth to date. Routine cultures are held for 5 days. [facility] Work Phone: Microscopic examination of blood, culture Culture has been received in lab and is no growth to date. Routine cultures are held for 5 days. [facility] Work Phone: Culture Urine 10,000 - 50,000 cfu/ ml Mixed growth consistent with normal urogenital blanco. [facility] Work Phone: UAon 05-27-2025 Color (U) Yellow Normal [facility] Comment on above: Performed By: #### U A, UAMIC ####[place] [address] Glucose (U) [Mass/Vol] Negative Normal Negative [facility] Comment on above: Performed By: #### U A, UAMIC ####[place] [address] Ketones Ql (U) Negative Normal Neg-Trace [facility] Comment on above: Performed By: #### U A, UAMIC ####[place] [address] UA Appear Cloudy Abnormal Clear [facility] Comment on above: Performed By: #### U A, UAMIC ####[place] [address] UA Blood Moderate Abnormal Neg-Trace [facility] Comment on above: Performed By: #### U A, UAMIC ####[place] [address] UA Leuk Est Large Abnormal Negative [facility] Comment on above: Performed By: #### U A, UAMIC ####[place] [address] UA Nitrite Positive Abnormal Negative [facility] Comment on above: Performed By: #### U A, UAMIC ####[place] [address] UA pH >=8.5 Abnormal 5.0 - 8.0 [facility] Comment on above: Performed By: #### U A, UAMIC ####[place] [address] UA Protein 100 mg/dL Abnormal Negative [facility] Comment on above: Performed By: #### U A, UAMIC ####[place] [address] UA Spec Grav 1.010 Normal 1.006-1.029 [facility] Comment on above: Performed By: #### U A, UAMIC ####[place] [address] UA Specimen Type Hilario Catheter Normal [facility] Comment on above: Performed By: #### U A, UAMIC ####[place] [address] UA Urobilinogen 0.2 E.U./dL Normal 0.2-1.0 [facility] Comment on above: Performed By: #### U A, UAMIC ####[place] [address] Urobilinogen (U) [Mass/Vol] Negative Normal Neg-Trace [facility] Comment on above: Performed By: #### U A, UAMIC ####[place] [address] Color (U) Yellow Normal [facility] Comment on above: Performed By: #### U A, UAMIC ####[place] [address] Glucose (U) [Mass/Vol] Negative Normal Negative [facility] Comment on above: Performed By: #### U A, UAMIC ####[place] [address] Ketones Ql (U) Negative Normal Neg-Trace [facility] Comment on above: Performed By: #### U A, UAMIC ####[place] [address] UA Appear Cloudy Abnormal Clear [facility] Comment on above: Performed By: #### U A, UAMIC ####[place] [address] UA Blood Negative Normal Neg-Trace [facility] Comment on above: Performed By: #### U A, UAMIC ####[place] [address] UA Leuk Est Trace Normal Negative [facility] Comment on above: Performed By: #### U A, UAMIC ####[place] [address] UA Nitrite Negative Normal Negative [facility] Comment on above: Performed By: #### U A, UAMIC ####[place] [address] UA pH 8.5 Abnormal 5.0 - 8.0 [facility] Comment on above: Performed By: #### U A, UAMIC ####[place] [address] UA Protein Trace Normal Negative [facility] Comment on above: Performed By: #### U A, UAMIC ####[place] [address] UA Spec Grav 1.020 Normal 1.006-1.029 [facility] Comment on above: Performed By: #### U A, UAMIC ####[place] [address] UA Specimen Type Clean Catch Normal [facility] Comment on above: Performed By: #### U A, UAMIC ####[place] [address] UA Urobilinogen 1.0 E.U./dL Normal 0.2-1.0 [facility] Comment on above: Performed By: #### U A, UAMIC ####[place] [address] Urobilinogen (U) [Mass/Vol] Negative Normal Neg-Trace [facility] Comment on above: Performed By: #### U A, UAMIC ####[place] [address] UAMICon 05-27-2025 UA Bacteria 1+ /hpf Abnormal Negative [facility] Comment on above: Performed By: #### U A, UAMIC ####[id number] [place] [address] UA Crenated RBCs 0-2 Abnormal [facility] Comment on above: Performed By: #### U A, UAMIC ####[place] [address] UA RBC 3-5 Abnormal 0-2 [facility] Comment on above: Performed By: #### U A, UAMIC ####[place] [address] UA Squam Epithelial 0-2 Normal 0-20 [facility] Comment on above: Performed By: #### U A, UAMIC ####[place] [address] UA Trip Rai Crystals 3+ /hpf Normal [facility] Comment on above: Performed By: #### U A, UAMIC ####[place] [address] UA WBC 10-20 Abnormal 0-5 [facility] Comment on above: Performed By: #### U A, UAMIC ####[place] [address] UA RBC Rare Normal 02 [facility] Comment on above: Performed By: #### U A, UAMIC ####[place] [address] UA Squam Epithelial 0-2 Normal 0-20 [facility] Comment on above: Performed By: #### U A, UAMIC ####[place] [address] UA WBC Rare Normal 0-5 [facility] Comment on above: Performed By: #### U A, UAMIC ####[place] [address] CBC + DIFFon 05-26-2025 Baso # 0.04 x10EE3/UL Normal 0.00 - 0.10 [facility] Comment on above: Performed By: #### 2 [id number] ####[facility],[address] [place] [address] Basophils/100 WBC (Bld) 0.4 % Normal 0.0 - 2.0 [facility] Comment on above: Performed By: #### 2 [id number] ####[facility],[address] [place] [address] CBC + DIFF Normal [facility] Comment on above: Result Comment: CBC- COMPLETE BLOOD COUNT Performed By: #### [id number] ####[facility],[address] [place] [address] EO # 0.28 x10EE3/UL Normal 0.00 - 0.50 [facility] Comment on above: Performed By: #### 2 [id number] ####[place] [address] Eosinophils/100 WBC (Bld) 3.1 % Normal 0.0 - 7.0 [facility] Comment on above: Performed By: #### 2 [id number] ####[place] [address] Erythrocyte distribution width (RBC) [Ratio] 14.1 % Normal 12.0 - 15.6 [facility] Comment on above: Performed By: #### 2 [id number] ####[place] [address] Hematocrit (Bld) [Volume fraction] 34.1 % Normal 34.0 - 46.0 [facility] Comment on above: Performed By: #### 2 [id number] ####[place] [address] Hemoglobin (Bld) [Mass/Vol] 12.1 g/dL Normal 12.0 - 16.0 [facility] Comment on above: Performed By: #### 2 [id number] ####[place] [address] Lymph # 2.66 x10EE3/UL Normal 0.80 - 2.80 [facility] Comment on above: Performed By: #### 2 70341 ####[address] [address] Lymphocytes/100 WBC (Bld) 29.1 % Normal 20.0 - 45.0 [facility] Comment on above: Performed By: #### 2 30571 ####[facility],[address] [place] [address] MANUAL DIFF N/A Normal [facility] Comment on above: Performed By: #### 2 52272 ####[facility],[address] [place] [address] MCH (RBC) [Entitic mass] 34 pg High 27 - 33 [facility] Comment on above: Performed By: #### 2 37103 ####[place] [address] MCHC 36 X10 3 Normal 32 - 36 [facility] Comment on above: Performed By: #### 2 37378 ####[place] [address] MCV (RBC) [Entitic vol] 96 fL Normal 80 - 99 [facility] Comment on above: Performed By: #### 2 38972 ####[place] [address] [place] # 0.65 x10EE3/UL Normal 0.20 - 1.00 [facility] Comment on above: Performed By: #### 2 84156 ####[place] [address] MONOS % 7.1 % Normal 0.0 - 10.0 [facility] Comment on above: Performed By: #### 2 59017 ####[place] [address] Morphology Efra (Bld) [Interp] N/A Normal [facility] Comment on above: Performed By: #### 2 04666 ####[place] [address] Neut # 5.51 x10EE3/UL Normal 1.50 - 7.10 [facility] Comment on above: Performed By: #### 2 62374 ####[facility],[address] [place] [address] Neutrophils/100 WBC (Bld) 60.3 % Normal 46.0 - 76.0 [facility] Comment on above: Performed By: #### 2 76107 ####[facility],[address] [place], [place] [phone] PLATELET 372 x10EE3/UL Normal 150 - 450 [facility] Comment on above: Performed By: #### 2 49560 ####[facility],[address] [place] [address] Platelet mean volume (Bld) [Entitic vol] 6.7 fL Normal 6.6 - 10.5 [facility] Comment on above: Result Comment: AUTO MATED DIFFERENTIAL Performed By: #### 2 79454 ####[facility],[address] [place] [address] RBC 3.55 x 10EE6/UL Low 4.10 - 5.30 [facility] Comment on above: Performed By: #### 2 37815 ####[facility],[address] [place], [place] [phone] WBC 9.1 x 10EE3/UL Normal 4.5 - 10.8 [facility] Comment on above: Performed By: #### 2 39608 ####[facility],[address] [place], [place] [phone] CMP with eGFRon 05-26-2025 AGE 34 years Normal [facility] Comment on above: Performed By: #### 2 61668 ####[place] [id number] Albumin [Mass/Vol] 3.7 g/dL Normal 3.4 - 5.0 [facility] Comment on above: Performed By: #### 2 73482 ####[facility],[address] [place] [address] Albumin/Globulin [Mass ratio] 1.3 {ratio} Normal 0.9 - 1.6 [facility] Comment on above: Performed By: #### 2 53155 ####[facility],[address] [place] [address] ALK PHOS 66 U/L Normal 46 - 116 [facility] Comment on above: Performed By: #### 2 65159 ####[facility],[address] [place] [address] ALT [Catalytic activity/Vol] 17 U/L Normal 16 - 63 [facility] Comment on above: Performed By: #### 2 85580 ####[facility],[address] [place] [address] Anion gap [Moles/Vol] 18 mmol/L Normal 10 - 20 [facility] Comment on above: Performed By: #### 2 11363 ####[facility],[address] [place] [address] AST [Catalytic activity/Vol] 14 U/L Normal 13 - 39 [facility] Comment on above: Performed By: #### 2 67988 ####[facility],[address] [place] [address] B/C RATIO 11 ratio Normal 0 - 30 [facility] Comment on above: Performed By: #### 2 27005 ####[facility],[address] [place] [address] Bilirubin [Mass/Vol] 0.2 mg/dL Normal 0.2 - 1.0 [facility] Comment on above: Performed By: #### 2 13230 ####[facility],[address] [place] [address] Calcium [Mass/Vol] 8.7 mg/dL Normal 8.5 - 10.1 [facility] Comment on above: Performed By: #### 2 90084 ####[facility],[address] [place], [place] [phone] Chloride [Moles/Vol] 106 mmol/L Normal 98 - 107 [facility] Comment on above: Performed By: #### 2 33388 ####[facility],[address] [place] [address] CMP with eGFR Normal [facility] Comment on above: Result Comment: COMP REHENSIVE METABOLIC PANEL Performed By: #### 2 25028 ####[facility],[address] [place], [place] [phone] CO2 [Moles/Vol] 21.5 mmol/L Normal 21.0 - 32.0 [facility] Comment on above: Performed By: #### 2 90619 ####[facility],[address] [place] [address] Creatinine [Mass/Vol] 1.17 mg/dL High 0.55 - 1.02 [facility] Comment on above: Performed By: #### 2 94254 ####[facility],[address] [place] [address] eGFR 52 ML/MINUTE Low 60 - 999 [facility] Comment on above: Performed By: #### 2 06226 ####[facility],[address] [place], [place] [phone] GFR/1.73 sq M.predicted among non-blacks MDRD (S/P/Bld) [Vol rate/Area] mL/min/{1.73_m2} Normal 60 - 999 [facility] Comment on above: Result Comment: ACCO RDING TO THE NATIONAL KIDNEY DISEASE EDUCATION PROGRAM(NKDE), A NORMAL eGFRIS A VALUE GREATER THAN OR EQUAL TO 60 ML/MIN/1.73 SQ METERS.CHRONIC KIDNEY DISEASE: <60mL/MIN/1.73 SQ METERSKIDNEY FAILURE: <15mL/MIN/1.73 SQ METERSTHIS TEST SHOULD ONLY BE USED FOR PATIENTS 18 YEARS OF AGE AND OLDER. Performed By: #### 2 13191 ####[facility],[address],[place] [address] Globulin (S) [Mass/Vol] 2.9 g/dL Normal 1.5 - 3.8 [facility] Comment on above: Performed By: #### 2 61193 ####[facility],[address] [place] [address] Glucose [Mass/Vol] 101 mg/dL Normal 74 - 106 [facility] Comment on above: Performed By: #### 2 44094 ####[facility],[address] [place] [address] Potassium [Moles/Vol] 4.1 mmol/L Normal 3.5 - 5.1 [facility] Comment on above: Performed By: #### 2 88198 ####[facility],[address] [place] [address] Protein [Mass/Vol] 6.6 g/dL Normal 6.4 - 8.2 [facility] Comment on above: Performed By: #### 2 86239 ####[facility],[address] [place] [address] Sodium [Moles/Vol] 141 mmol/L Normal 136 - 145 [facility] Comment on above: Performed By: #### 2 07468 ####[facility],[address] [place] [address] Urea nitrogen [Mass/Vol] 13 mg/dL Normal 7 - 18 [facility] Comment on above: Performed By: #### 2 17054 ####[facility],[address] [place] [address] LACTATEon 05-26-2025 Lactate [Moles/Vol] 0.8 mmol/L Normal 0.4 - 2.0 [facility] Comment on above: Performed By: #### 2 09119 ####[facility],[address] [place] [address] SERUM QUALon 05-26 EXTERNAL QC DONE? YES Normal [facility] Comment on above: Performed By: #### 2 64393 ####[facility],[address] [place] [address],[place] [phone] INTERNAL QC PASS Normal [facility] Comment on above: Performed By: #### 2 23192 ####[facility],[address] [place] [address],[place] [phone] SER Negative Normal NEGATIVE [facility] Comment on above: Performed By: #### 2 62195 ####[facility],[address] [place], [place] [phone] URINALYSISon 05-26-2025 Amorphous 2+ Normal [facility] Comment on above: Performed By: #### 2 67694 ####[facility],[address] [place], [place] [phone] Bacteria 3+ Normal [facility] Comment on above: Performed By: #### 2 46175 ####[facility],[address] [place], [place] [address] Bilirubin Ql (U) Negative Normal NORMAL: NEGATIVE [facility] Comment on above: Performed By: #### 2 75645 ####[facility],[address] [place], [place] [phone] Casts NONE Normal [facility] Comment on above: Performed By: #### 2 33934 ####[facility],[address] [place], [place] [address] Clarity (U) sl.cloudy Normal NORMAL: CLEAR [facility] Comment on above: Performed By: #### 2 02229 ####[facility],[address] [place] [address] Color (U) yellow Normal NORMAL: YELLOW [facility] Comment on above: Performed By: #### 2 34601 ####[facility],[address] [place] [address] Crystals LM Nom (Urine sed) SEE BELOW Normal [facility] Comment on above: Performed By: #### 2 86116 ####[facility],[address] [place] [address] Epi Cells OCC Normal [facility] Comment on above: Performed By: #### 2 57500 ####[facility],[address] [place] [address] Glucose Ql (U) NORM Normal NORMAL: NORMAL [facility] Comment on above: Performed By: #### 2 91414 ####[facility],[address] [place] [address] Hemoglobin Ql (U) 150 Abnormal NORMAL: NEGATIVE [facility] Comment on above: Performed By: #### 2 26706 ####[facility],[address] [place] [address] Ketone Negative Normal NORMAL: NEGATIVE [facility] Comment on above: Performed By: #### 2 15441 ####[facility],[address] [place] [address] Leukocytes 500 Abnormal NORMAL: NEGATIVE [facility] Comment on above: Performed By: #### 2 00574 ####[facility],[address] [place] [address] Mucous NONE Normal [facility] Comment on above: Performed By: #### 2 45077 ####[facility],[address] [place] [address] Nitrite Ql (U) Positive Normal NORMAL: NEGATIVE [facility] Comment on above: Performed By: #### 2 11777 ####[facility],[address] [place] [address] pH (U) 8 [pH] Normal NORMAL: 5.0-8.0 [facility] Comment on above: Performed By: #### 2 61310 ####[facility],[address] [place] [address] Protein Ql (U) 100 Abnormal NORMAL: NEGATIVE [facility] Comment on above: Performed By: #### 2 56641 ####[facility],[address] [place] [address] Rbc 0-5 Normal 0-3/hpf [facility] Comment on above: Performed By: #### 2 42867 ####[facility],[address] [place] [address] 1.010 Normal NORMAL: 1.010-1.030 [facility] Comment on above: Performed By: #### 2 60167 ####[facility],[address] [place] [address] Specimen Type R Normal [facility] Comment on above: Performed By: #### 2 89114 ####[facility],[address] [place] [address] Triple Phos 1+ Normal NORMAL: NONE [facility] Comment on above: Performed By: #### 2 03510 ####[facility],[address] [place] [address] Urinalysis dipstick W Reflex Microscopic panel (U) SEE BELOW Normal [facility] Comment on above: Result Comment: MICR OSCOPIC Performed By: #### 2 77150 ####[facility],[address] [place] [address] Urobilinog NORM Normal NORMAL: NORMAL [facility] Comment on above: Performed By: #### 2 56703 ####[facility],[address] [place] [address] Wbc 11-15 Normal 0-5/hpf [facility] Comment on above: Performed By: #### 2 26577 ####[facility],[address] [place] [address] Yeast NONE Normal [facility] Comment on above: Performed By: #### 2 25525 ####[facility],[address] [place] [address] .Auto Diffon 05-25-2025 Basophil, Absolute 0.1 10 3/mcL Normal 0.0-0.3 [facility] Comment on above: Performed By: #### G FR, BMP, ANEU, MDW, ADIFF, CBC ####[address] [address] Basophils/100 WBC (Bld) 1.3 % Normal 0.0-2.5 [facility] Comment on above: Performed By: #### G FR, BMP, ANEU, MDW, ADIFF, CBC ####[address] [address] Eosinophil, Absolute 0.2 10 3/mcL Normal 0.0-0.[address] [facility] Comment on above: Performed By: #### G FR, BMP, ANEU, MDW, ADIFF, CBC ####[address] [address] Eosinophils/100 WBC (Bld) 1.8 % Normal 0.0-6.0 [facility] Comment on above: Performed By: #### G FR, BMP, ANEU, MDW, ADIFF, CBC ####[address] [address] Lymphocyte, Absolute 2.8 10 3/mcL Normal 0.9-4.[address] [facility] Comment on above: Performed By: #### G FR, BMP, ANEU, MDW, ADIFF, CBC ####[address] [address] Lymphocytes/100 WBC (Bld) 27.0 % Normal 20.0-40.0 [facility] Comment on above: Performed By: #### G FR, BMP, ANEU, MDW, ADIFF, CBC ####[address] [address] Monocyte, Absolute 0.8 10 3/mcL Normal 0.1-1.4 [facility] Comment on above: Performed By: #### G FR, BMP, ANEU, MDW, ADIFF, CBC ####[address] [address] Monocytes/100 WBC (Bld) 8.0 % Normal 2.0-13.0 [facility] Comment on above: Performed By: #### G FR, BMP, ANEU, MDW, ADIFF, CBC ####[place] [address] Neutrophils/100 WBC (Bld) 61.9 % Normal 50.0-75.0 [facility] Comment on above: Performed By: #### G FR, BMP, ANEU, MDW, ADIFF, CBC ####[place] [address] .GFRon 05-25-2025 Estimated Glomerular Filtration Rate 81 ml/min/1.73sqm Normal [facility] Comment on above: Result [...] theeGFR results. Performed By: #### G FR, ZENOBIA, GURMEET, MDW, ADIFF, CBC ####[place] [address] .MDWon 05-25-2025 Monocyte Distribution Width 21.37 High 0.00-20.00 [facility] Comment on above: Result Comment: For adults in ED, MDW>20.0 may be associated with a higher risk of sepsis during the first 12hrs of hospital admission Performed By: #### G FR, BMP, ANEU, MDW, ADIFF, CBC ####[place] [address] .NEUABSon 05-25-2025 Neutrophil, Absolute 6.4 10 3/mcL Normal 2.3-8.[address] [facility] Comment on above: Performed By: #### G FR, BMP, ANEU, MDW, ADIFF, CBC ####[place] [address] BMPon 05-25-2025 BUN/Creatinine Ratio 7.4 ratio Low 10.0-22.0 [facility] Comment on above: Performed By: #### G FR, ZENOBIA, GURMEET, YOUNG, ADIFF, CBC ####[address] [address] Calcium [Mass/Vol] 9.6 mg/dL Normal 8.7-10.4 [facility] Comment on above: Performed By: #### G FR, BMP, GURMEET, YOUNG, ADIFF, CBC ####[address] [address] Chloride [Moles/Vol] 108 mmol/L Normal 98-110 [facility] Comment on above: Performed By: #### G FR, ZENOBIA, YOUNG LEVI, ADIFF, CBC ####[address] [address] CO2 [Moles/Vol] 26 mmol/L Normal 22-32 [facility] Comment on above: Performed By: #### G FR, BMP, GURMEET, W, ADIFF, CBC ####[address] [address] Creatinine [Mass/Vol] 0.94 mg/dL Normal 0.50-1.20 [facility] Comment on above: Result Comment: Test ing performed on Cortexica analyzer using enzymatic creatinine methodology. Performed By: #### G FR, ZENOBIA, GURMEET, YOUNG, ADIFF, CBC ####[address] [address] Electrolyte Balance 6.0 mEq/L Normal 4.0-15.0 [facility] Comment on above: Performed By: #### G FR, BMP, GURMEET, W, ADIFF, CBC ####[address] [address] Glucose [Mass/Vol] 92 mg/dL Normal 70-110 [facility] Comment on above: Performed By: #### G FR, BMP, GURMEET, W, ADIFF, CBC ####[address] [address] Potassium [Moles/Vol] 4.0 mmol/L Normal 3.5-5.0 [facility] Comment on above: Result Comment: Spec imen slightly hemolyzed. Performed By: #### G FR, BMP, ANEU, MDW, ADIFF, CBC ####[place] [address] Sodium [Moles/Vol] 140 mmol/L Normal 136-145 [facility] Comment on above: Performed By: #### G FR, BMP, ANEU, MDW, ADIFF, CBC ####[place] [address] Urea nitrogen [Mass/Vol] 7.0 mg/dL Low 8.0-22.0 [facility] Comment on above: Performed By: #### G FR, BMP, ANEU, MDW, ADIFF, CBC ####[place] [address] CBCon 05-25-2025 Erythrocyte distribution width (RBC) [Ratio] 15.6 % High 11.5-15.5 [facility] Comment on above: Performed By: #### G FR, BMP, ANEU, MDW, ADIFF, CBC ####[place] [address] Hematocrit (Bld) [Volume fraction] 41.5 % Normal 34.0-46.0 [facility] Comment on above: Performed By: #### G FR, BMP, ANEU, MDW, ADIFF, CBC ####[place] [address] Hgb 14.1 G/dL Normal 12.0-16.0 [facility] Comment on above: Performed By: #### G FR, BMP, ANEU, MDW, ADIFF, CBC ####[place] [address] MCH (RBC) [Entitic mass] 32.9 pg Normal 27.0-33.0 [facility] Comment on above: Performed By: #### G FR, BMP, ANEU, MDW, ADIFF, CBC ####[place] [address] MCHC 34.0 G/dL Normal 32.0-36.0 [facility] Comment on above: Performed By: #### G FR, BMP, ANEU, MDW, ADIFF, CBC ####[place] [address] MCV (RBC) [Entitic vol] 96.7 fL Normal 80.0-99.0 [facility] Comment on above: Performed By: #### G FR, BMP, ANEU, MDW, ADIFF, CBC ####[place] [address] Platelet 431 10 3/mcL Normal 150-450 [facility] Comment on above: Performed By: #### G FR, BMP, ANEU, MDW, ADIFF, CBC ####[place] [address] Platelet mean volume (Bld) [Entitic vol] 7.1 fL Normal 6.6-10.5 [facility] Comment on above: Performed By: #### G FR, BMP, ANEU, MDW, ADIFF, CBC ####[place] [address] RBC 4.29 10 6/mcL Normal 4.10-5.30 [facility] Comment on above: Performed By: #### G FR, BMP, ANEU, MDW, ADIFF, CBC ####[place] [address] WBC 10.3 10 3/mcL Normal 4.5-10.8 [facility] Comment on above: Performed By: #### G FR, BMP, ANEU, MDW, ADIFF, CBC ####[place] [address] CT ABDOMEN/PELVIS W/O CONTRA STon 05-25-2025 CT ABDOMEN/PELVIS W/O CONTRAST Normal [facility] LABORATORYOrdered By: Ricky Mary on 05-25-2025 Beta HCG ( test) Ql (U) Negative (05/25/25 10:32 PM) [facility] Work Phone: LABORATORYOrdered By: Rosalinda Tello on 05-25-2025 Appearance (U) Clear (05/25/25 10:20 PM) Normal Clear AH Auto Urine SS [...] Est Negative (05/25/25 10:20 PM) Normal Negative AH Auto Urine SS UA Nitrite Negative (05/25/25 10:20 PM) Normal Negative AH Auto Urine SS UA pH 8.0 (05/25/25 10:20 PM) Normal 5.0 - 8.0 AH Auto Urine SS UA Protein Negative Normal Negative AH Auto Urine SS UA Spec Grav 1.010 (05/25/25 10:20 PM) Normal 1.006-1.029 AH Auto Urine SS UA Specimen Type Clean Catch (05/25/25 10:20 PM) Normal AH Auto Urine [...] above: Interpretive Data: T esting performed on Cortexica analyzer using enzymatic creatinine methodology. Electrolyte Balance [...] Rate 81 ml/min/1.73sqm Invalid Interpretation Code ADM Comment on above: Interpretive Data: Stages of [...] 41.5 % Normal 34.0 - 46.0 % Workflow SS Hemoglobin (Bld) [Mass/Vol] 14.1 G/dL Normal 12.0 - 16.0 G/dL AH Workflow SS Lymphocytes (Bld) [#/Vol] 2.8 103/mcL Normal 0.9 - 4.3 10^3/mcL Workflow SS Lymphocytes/100 WBC (Bld) 27.0 % Normal 20.0 - 40.0 % Workflow SS MCH (RBC) [Entitic mass] 32.9 pg Normal 27.0 - 33.0 pg AH Workflow SS MCHC 34.0 G/dL Normal 32.0 - 36.0 G/dL Workflow SS MCV (RBC) [Entitic vol] 96.7 fL Normal 80.0 - 99.0 fL Workflow SS Monocyte distribution width Auto (Bld) [Entitic vol] 21.37 1 High 0.00 - 20.00 Workflow SS Comment on [...] 7.1 fL Normal 6.6 - 10.5 fL Workflow SS Platelets (Bld) [#/Vol] 431 103/mcL Normal 150 - 450 10^3/mcL Workflow SS Potassium [Moles/Vol] 4.0 mmol/L Normal 3.5 - 5.0 mEq/L ADM SS Comment on above: Result Comment: Spec imen slightly hemolyzed. RBC (Bld) [#/Vol] 4.29 106/mcL Normal 4.10 - 5.3 0 10^6/mcL Workflow SS Sodium [Moles/Vol] 140 mmol/L Normal 136 - 145 mEq/L ADM SS Urea nitrogen [Mass/Vol] 7.0 mg/dL Low 8.0 - 22.0 mg/dL ADM SS Urea nitrogen/Creatinine [Mass ratio] 7.4 ratio Low 10.0 - 22.0 ratio ADM SS WBC (Bld) [#/Vol] 10.3 103/mcL Normal 4.5 - 10.8 10^3/mcL Workflow SS UAon 05-25-2025 Color (U) Yellow Normal [facility] Comment on above: Performed By: #### U A ####[address] [address] Glucose (U) [Mass/Vol] Negative Normal Negative [facility] Comment on above: Performed By: #### U A ####[address] [address] Ketones Ql (U) Negative Normal Neg-Trace [facility] Comment on above: Performed By: #### U A ####[address] [address] UA Appear Clear Normal Clear [facility] Comment on above: Performed By: #### U A ####[place] [address] UA Blood Negative Normal Neg-Trace [facility] Comment on above: Performed By: #### U A ####[place] [address] UA Leuk Est Negative Normal Negative [facility] Comment on above: Performed By: #### U A ####[place] [address] UA Nitrite Negative Normal Negative [facility] Comment on above: Performed By: #### U A ####[place] [address] UA pH 8.0 Normal 5.0 - 8.0 [facility] Comment on above: Performed By: #### U A ####[place] [address] UA Protein Negative Normal Negative [facility] Comment on above: Performed By: #### U A ####[place] [address] UA Spec Grav 1.010 Normal 1.006-1.029 [facility] Comment on above: Performed By: #### U A ####[place] [address] UA Specimen Type Clean Catch Normal [facility] Comment on above: Performed By: #### U A ####[place] [address] UA Urobilinogen 1.0 E.U./dL Normal 0.2-1.0 [facility] Comment on above: Performed By: #### U A ####[place] [address] Urobilinogen (U) [Mass/Vol] Negative Normal Neg-Trace [facility] Comment on above: Performed By: #### U A ####[place] [address] .Auto Diffon 05-09-2025 Basophil, Absolute 0.1 10 3/mcL Normal 0.0-0.3 [facility] Comment on above: Performed By: #### C BC, CMP, MDW, GFR, LIP, ADIFF, ANEU ####[address] [address] Basophils/100 WBC (Bld) 1.0 % Normal 0.0-2.5 [facility] Comment on above: Performed By: #### C BC, CMP, MDW, GFR, LIP, ADIFF, ANEU ####[address] [address] Eosinophil, Absolute 0.2 10 3/mcL Normal 0.0-0.[address] [facility] Comment on above: Performed By: #### C BC, CMP, MDW, GFR, LIP, ADIFF, ANEU ####[address] [address] Eosinophils/100 WBC (Bld) 1.9 % Normal 0.0-6.0 [facility] Comment on above: Performed By: #### C BC, CMP, MDW, GFR, LIP, ADIFF, ANEU ####[address] [address] Lymphocyte, Absolute 2.4 10 3/mcL Normal 0.9-4.[address] [facility] Comment on above: Performed By: #### C BC, CMP, MDW, GFR, LIP, ADIFF, ANEU ####[address] [address] Lymphocytes/100 WBC (Bld) 27.3 % Normal 20.0-40.0 [facility] Comment on above: Performed By: #### C BC, CMP, MDW, GFR, LIP, ADIFF, ANEU ####[address] [address] Monocyte, Absolute 0.7 10 3/mcL Normal 0.1-1.4 [facility] Comment on above: Performed By: #### C BC, CMP, MDW, GFR, LIP, ADIFF, ANEU ####[address] [address] Monocytes/100 WBC (Bld) 7.9 % Normal 2.0-13.0 [facility] [facility] Comment on above: Performed By: #### C BC, CMP, MDW, GFR, LIP, ADIFF, ANEU ####[place] [address] Neutrophils/100 WBC (Bld) 61.9 % Normal 50.0-75.0 [facility] Comment on above: Performed By: #### C BC, CMP, MDW, GFR, LIP, ADIFF, ANEU ####[place] [address] .GFRon 05-09-2025 Estimated Glomerular Filtration Rate 90 ml/min/1.73sqm Normal [facility] Comment on above: Result [...] BC, CMP, MDW, GFR, LIP, ADIFF, ANEU ####[place] [address] .MDWon 05-09-2025 Monocyte Distribution Width 19.78 Normal 0.00-20.00 [facility] Comment on above: Result Comment: For ED adult patients suspected of sepsis, MDW<=20.0 does not rule out sepsis or risk of sepsis Performed By: #### C BC, CMP, MDW, GFR, LIP, ADIFF, ANEU ####[place] [address] .NEUABSon 05-09-2025 Neutrophil, Absolute 5.4 10 3/mcL Normal 2.3-8.[address] [facility] Comment on above: Performed By: #### C BC, CMP, MDW, GFR, LIP, ADIFF, ANEU ####[place] [address] BACTERIAL WOUND CULTURE [CCL ]on 05-09-2025 BACTERIAL WOUND CULTURE [CCL] Normal [facility] Comment on above: Result Comment: _CUL TURE WOUND [CCL]_SEE SCANNED REPORT Performed By: #### [id number] ####[facility],[address] [place] [address] CBCon 05-09-2025 Erythrocyte distribution width (RBC) [Ratio] 15.0 % Normal 11.5-15.5 [facility] Comment on above: Performed By: #### C BC, CMP, MDW, GFR, LIP, ADIFF, ANEU ####[place] [address] Hematocrit (Bld) [Volume fraction] 35.4 % Normal 34.0-46.0 [facility] Comment on above: Performed By: #### C BC, CMP, MDW, GFR, LIP, ADIFF, ANEU ####[place] [address] Hgb 12.0 G/dL Normal 12.0-16.0 [facility] Comment on above: Performed By: #### C BC, CMP, MDW, GFR, LIP, ADIFF, ANEU ####[place] [address] MCH (RBC) [Entitic mass] 32.3 pg Normal 27.0-33.0 [facility] Comment on above: Performed By: #### C BC, CMP, MDW, GFR, LIP, ADIFF, ANEU ####[place] [address] MCHC 33.9 G/dL Normal 32.0-36.0 [facility] Comment on above: Performed By: #### C BC, CMP, MDW, GFR, LIP, ADIFF, ANEU ####[place] [address] MCV (RBC) [Entitic vol] 95.0 fL Normal 80.0-99.0 [facility] Comment on above: Performed By: #### C BC, CMP, MDW, GFR, LIP, ADIFF, ANEU ####[place] [address] Platelet 347 10 3/mcL Normal 150-450 [facility] Comment on above: Performed By: #### C BC, CMP, MDW, GFR, LIP, ADIFF, ANEU ####[place] [address] Platelet mean volume (Bld) [Entitic vol] 6.9 fL Normal 6.6-10.5 [facility] Comment on above: Performed By: #### C BC, CMP, MDW, GFR, LIP, ADIFF, ANEU ####[place] [address] RBC 3.73 10 6/mcL Low 4.10-5.30 [facility] Comment on above: Performed By: #### C BC, CMP, MDW, GFR, LIP, ADIFF, ANEU ####[place] [address] WBC 8.7 10 3/mcL Normal 4.5-10.8 [facility] Comment on above: Performed By: #### C BC, CMP, MDW, GFR, LIP, ADIFF, ANEU ####[place] [address] CMPon 05-09-2025 Albumin Level 3.7 G/dL Normal 3.2-4.8 [facility] Comment on above: Performed By: #### C BC, CMP, MDW, GFR, LIP, ADIFF, ANEU ####[place] [address] Albumin/Globulin [Mass ratio] 1.3 {ratio} Normal 0.9-1.6 [facility] Comment on above: Performed By: #### C BC, CMP, MDW, GFR, LIP, ADIFF, ANEU ####[place] [address] ALP [Catalytic activity/Vol] 71 U/L Normal 38-126 [facility] Comment on above: Performed By: #### C BC, CMP, MDW, GFR, LIP, ADIFF, ANEU ####[place] [address] ALT [Catalytic activity/Vol] 9 U/L Low 10-49 [facility] Comment on above: Performed By: #### C BC, CMP, MDW, GFR, LIP, ADIFF, ANEU ####[address] [address] AST [Catalytic activity/Vol] 18 U/L Normal 8-34 [facility] Comment on above: Performed By: #### C BC, CMP, MDW, GFR, LIP, ADIFF, ANEU ####[address] [address] Bili Total <0.20 Normal 0.20-1.20 [facility] Comment on above: Result Comment: Use of this assay is not recommended for patients undergoing treatment with eltrombopag due to the potential for falsely elevated results. Performed By: #### C BC, CMP, MDW, GFR, LIP, ADIFF, ANEU ####[place] [address] BUN/Creatinine Ratio 9.3 ratio Low 10.0-22.0 [facility] Comment on above: Performed By: #### C BC, CMP, MDW, GFR, LIP, ADIFF, ANEU ####[address] [address] Calcium [Mass/Vol] 9.5 mg/dL Normal 8.7-10.4 [facility] Comment on above: Performed By: #### C BC, CMP, MDW, GFR, LIP, ADIFF, ANEU ####[address] [address] Chloride [Moles/Vol] 103 mmol/L Normal 98-110 [facility] Comment on above: Performed By: #### C BC, CMP, MDW, GFR, LIP, ADIFF, ANEU ####[address] [address] CO2 [Moles/Vol] 28 mmol/L Normal 22-32 [facility] Comment on above: Performed By: #### C BC, CMP, MDW, GFR, LIP, ADIFF, ANEU ####[address] [address] Creatinine [Mass/Vol] 0.86 mg/dL Normal 0.50-1.20 [facility] Comment on above: Result Comment: Test ing performed on Cortexica analyzer using enzymatic creatinine methodology. Performed By: #### C BC, CMP, MDW, GFR, LIP, ADIFF, ANEU ####[address] [address] Electrolyte Balance 12.0 mEq/L Normal 4.0-15.0 [facility] Comment on above: Performed By: #### C BC, CMP, MDW, GFR, LIP, ADIFF, ANEU ####[address] [address] Globulin 2.9 G/dL Normal 2.5-4.2 [facility] Comment on above: Performed By: #### C BC, CMP, MDW, GFR, LIP, ADIFF, ANEU ####[address] [address] Glucose [Mass/Vol] 93 mg/dL Normal 70-110 [facility] Comment on above: Performed By: #### C BC, CMP, MDW, GFR, LIP, ADIFF, ANEU ####[address] [address] Potassium [Moles/Vol] 4.0 mmol/L Normal 3.5-5.0 [facility] Comment on above: Performed By: #### C BC, CMP, MDW, GFR, LIP, ADIFF, ANEU ####[address] [address] Sodium [Moles/Vol] 143 mmol/L Normal 136-145 [facility] Comment on above: Performed By: #### C BC, CMP, MDW, GFR, LIP, ADIFF, ANEU ####[address] [address] Total Protein 6.6 G/dL Normal 5.7-8.2 [facility] Comment on above: Performed By: #### C BC, CMP, MDW, GFR, LIP, ADIFF, ANEU ####[address] [address] Urea nitrogen [Mass/Vol] 8.0 mg/dL Normal 8.0-22.0 [facility] Comment on above: Performed By: #### C BC, CMP, MDW, GFR, LIP, ADIFF, ANEU ####[facility] [place] [address] CT ABDOMEN/PELVIS W/O CONTRA STon 05-09-2025 CT ABDOMEN/PELVIS W/O CONTRAST Normal [facility] LABORATORYOrdered By: Guero Zendejas on 05-09-2025 Appearance (U) Clear (05/09/25 12:32 AM) Normal Clear AH Auto Urine SS Bacteria LM.HPF (Urine sed) [#/Area] Trace /HPF Invalid Interpretation Code Negative AH Auto Urine SS Bilirubin Ql (U) Negative (05/09/25 12:32 AM) Normal Neg-Trace AH Auto Urine SS Color (U) Yellow (05/09/25 [...] 3.7 G/dL Normal 3.2 - 4.8 G/dL ADM SS Albumin/Globulin [Mass ratio] 1.3 {ratio} Normal 0.9 - 1.6 ratio AH ADM SS ALP [Catalytic activity/Vol] 71 U/L Normal 38 - 126 U/L ADM SS ALT No additional P-5'-P [Catalytic activity/Vol] 9 U/L Low 10 - 49 U/L AH ADM SS AST [Catalytic activity/Vol] 18 U/L Normal 8 - 34 U/L ADM SS Basophils (Bld) [#/Vol] 0.1 103/mcL Normal 0.0 - 0.3 10^3/mcL Workflow SS Basophils/100 WBC (Bld) 1.0 % Normal 0.0 - 2.5 % Workflow SS Bilirubin [Mass/Vol] mg/dL Normal 0.20 - 1.20 mg/dL ADM [...] above: Interpretive Data: T esting performed on Cortex[employer] analyzer using enzymatic creatinine methodology. Electrolyte Balance [...] Filtration Rate 90 ml/min/1.73sqm Invalid Interpretation Code AH ADM SS [...] 23 U/L Normal 12 - 53 U/L ADM SS Lymphocytes (Bld) [#/Vol] 2.4 103/mcL Normal 0.9 - 4.3 10^3/mcL Workflow SS Lymphocytes/100 WBC (Bld) 27.3 % Normal 20.0 - 40.0 % AH Workflow SS MCH (RBC) [Entitic mass] 32.3 pg Normal 27.0 - 33.0 pg AH Workflow SS MCHC 33.9 G/dL Normal 32.0 - 36.0 G/dL Workflow SS MCV (RBC) [Entitic vol] 95.0 fL Normal 80.0 - 99.0 fL Workflow SS Monocyte distribution width Auto (Bld) [Entitic vol] 19.78 1 Normal 0.00 - 20.00 Workflow SS Comment on above: Result Comment: For ED adult patients suspected of sepsis, MDW<=20.0 does not rule out sepsis or risk of sepsis Monocytes (Bld) [#/Vol] 0.7 103/mcL Normal 0.1 - 1.4 10^3/mcL Workflow SS Monocytes/100 WBC (Bld) 7.9 % Normal 2.0 - 13.0 % Workflow SS Neutrophils (Bld) [#/Vol] 5.4 103/mcL Normal 2.3 - 8.1 10^3/mcL AH Workflow SS Neutrophils/100 WBC (Bld) 61.9 % Normal 50.0 - 75.0 % AH Workflow SS Platelet mean volume (Bld) [Entitic vol] 6.9 fL Normal 6.6 - 10.5 fL Workflow SS Platelets (Bld) [#/Vol] 347 103/mcL Normal 150 - 450 10^3/mcL AH Workflow SS Potassium [Moles/Vol] 4.0 mmol/L Normal 3.5 - 5.0 mEq/L ADM SS Protein [Mass/Vol] 6.6 G/dL Normal 5.7 - 8.2 G/dL ADM SS RBC (Bld) [#/Vol] 3.73 106/mcL Low 4.10 - 5.3 0 10^6/mcL AH Workflow SS Sodium [Moles/Vol] 143 mmol/L Normal 136 - 145 mEq/L ADM SS Urea nitrogen [Mass/Vol] 8.0 mg/dL Normal 8.0 - 22.0 mg/dL ADM SS Urea nitrogen/Creatinine [Mass ratio] 9.3 ratio Low 10.0 - 22.0 ratio ADM SS WBC (Bld) [#/Vol] 8.7 103/mcL Normal 4.5 - 10.8 10^3/mcL Workflow SS LIPon 05-09-2025 Lipase Level 23 U/L Normal 12-53 [facility] Comment on above: Performed By: #### C BC, CMP, MDW, GFR, LIP, ADIFF, ANEU ####[address] [address] UAon 05-09-2025 Color (U) Yellow Normal [facility] Comment on above: Performed By: #### U A UAMIC ####[address] [address] Glucose (U) [Mass/Vol] Negative Normal Negative [facility] Comment on above: Performed By: #### U A UAMIC ####[address] [address] Ketones Ql (U) Negative Normal Neg-Trace [facility] Comment on above: Performed By: #### U A, UAMIC ####[place] [address] UA Appear Clear Normal Clear [facility] Comment on above: Performed By: #### U A, UAMIC ####[place] [address] UA Blood Trace Normal Neg-Trace [facility] Comment on above: Performed By: #### U A, UAMIC ####[place] [address] UA Leuk Est Large Abnormal Negative [facility] Comment on above: Performed By: #### U A, UAMIC ####[place] [address] UA Nitrite Negative Normal Negative [facility] Comment on above: Performed By: #### U A, UAMIC ####[place] [address] UA pH 8.5 Abnormal 5.0 - 8.0 [facility] Comment on above: Performed By: #### U A, UAMIC ####[place] [address] UA Protein Trace Normal Negative [facility] Comment on above: Performed By: #### U A, UAMIC ####[place] [address] UA Spec Grav <=1.005 Abnormal 1.006-1.029 [facility] Comment on above: Performed By: #### U A, UAMIC ####[place] [address] UA Specimen Type Void Normal [facility] Comment on above: Performed By: #### U A, UAMIC ####[place] [address] UA Urobilinogen 0.2 E.U./dL Normal 0.2-1.0 [facility] Comment on above: Performed By: #### U A, UAMIC ####[place] [address] Urobilinogen (U) [Mass/Vol] Negative Normal Neg-Trace [facility] Comment on above: Performed By: #### U A, UAMIC ####[place] [address] UAMICon 05-09-2025 UA Bacteria Trace Abnormal Negative [facility] Comment on above: Performed By: #### U A, UAMIC ####[place] [address] UA Mucous Trace Normal [facility] Comment on above: Performed By: #### U A, UAMIC ####[place] [address] UA RBC 0-2 Normal 0-2 [facility] Comment on above: Performed By: #### U A, UAMIC ####[place] [address] UA Squam Epithelial 0-2 Normal 0-20 [facility] Comment on above: Performed By: #### U A, UAMIC ####[place] [address] UA WBC 5-10 Abnormal 0-5 [facility] Comment on above: Performed By: #### U A, UAMIC ####[place] [address] CBLon 05-08-2025 CBL Normal [facility] .Auto Diffon 05-07-2025 Basophil, Absolute 0.1 10 3/mcL Normal 0.0-0.3 [facility] Comment on above: Performed By: #### B MP, ANEU, CBC, MG, ADIFF, GFR ####[place] [address] Basophils/100 WBC (Bld) 0.9 % Normal 0.0-2.5 [facility] Comment on above: Performed By: #### B MP, ANEU, CBC, MG, ADIFF, GFR ####[place] [address] Eosinophil, Absolute 0.3 10 3/mcL Normal 0.0-0.[address] [facility] Comment on above: Performed By: #### B MP, ANEU, CBC, MG, ADIFF, GFR ####[address] [address] Eosinophils/100 WBC (Bld) 3.1 % Normal 0.0-6.0 [facility] Comment on above: Performed By: #### B MP, ANEU, CBC, MG, ADIFF, GFR ####[address] [address] Lymphocyte, Absolute 2.0 10 3/mcL Normal 0.9-4.[address] [facility] Comment on above: Performed By: #### B MP, ANEU, CBC, MG, ADIFF, GFR ####[address] [address] Lymphocytes/100 WBC (Bld) 22.6 % Normal 20.0-40.0 [facility] Comment on above: Performed By: #### B MP, ANEU, CBC, MG, ADIFF, GFR ####[address] [address] Monocyte, Absolute 0.8 10 3/mcL Normal 0.1-1.4 [facility] Comment on above: Performed By: #### B MP, ANEU, CBC, MG, ADIFF, GFR ####[address] [address] Monocytes/100 WBC (Bld) 9.2 % Normal 2.0-13.0 [facility] Comment on above: Performed By: #### B MP, ANEU, CBC, MG, ADIFF, GFR ####[address] [address] Neutrophils/100 WBC (Bld) 64.2 % Normal 50.0-75.0 [facility] Comment on above: Performed By: #### B MP, ANEU, CBC, MG, ADIFF, GFR ####[address] [address] .GFRon 05-07-2025 Estimated Glomerular Filtration Rate 94 ml/min/1.73sqm Normal [facility] Comment on above: Result [...] B MP, ANEU, CBC, MG, ADIFF, GFR ####[address] [address] .NEUABSon 05-07-2025 Neutrophil, Absolute 5.7 10 3/mcL Normal 2.3-8.[address] [facility] Comment on above: Performed By: #### B MP, ANEU, CBC, MG, ADIFF, GFR ####[address] [address] BMPon 05-07-2025 BUN/Creatinine Ratio Unable to Calculate Normal 10.0-2 2.0 [facility] Comment on above: Result Comment: Unab le to calculate this test result accurately. Results used to calculate this test are outside the reportable range. Performed By: #### B MP, ANEU, CBC, MG, ADIFF, GFR ####[address] [address] Urea nitrogen [Mass/Vol] mg/dL Low 8.0-22.0 [facility] Comment on above: Performed By: #### B MP, ANEU, CBC, MG, ADIFF, GFR ####[address] [address] Calcium [Mass/Vol] 9.0 mg/dL Normal 8.7-10.4 [facility] Comment on above: Performed By: #### B MP, ANEU, CBC, MG, ADIFF, GFR ####[place] [id number] Chloride [Moles/Vol] 109 mmol/L Normal 98-110 [facility] Comment on above: Performed By: #### B MP, ANEU, CBC, MG, ADIFF, GFR ####[place] [address] CO2 [Moles/Vol] 26 mmol/L Normal 22-32 [facility] Comment on above: Performed By: #### B MP, ANEU, CBC, MG, ADIFF, GFR ####[place] [address] Creatinine [Mass/Vol] 0.83 mg/dL Normal 0.50-1.20 [facility] Comment on above: Result Comment: Test ing performed on Cortex[employer] analyzer using enzymatic creatinine methodology. Performed By: #### B MP, ANEU, CBC, MG, ADIFF, GFR ####[place] [address] Electrolyte Balance 7.0 mEq/L Normal 4.0-15.0 [facility] Comment on above: Performed By: #### B MP, ANEU, CBC, MG, ADIFF, GFR ####[place] [address] Glucose [Mass/Vol] 91 mg/dL Normal 70-110 [facility] Comment on above: Performed By: #### B MP, ANEU, CBC, MG, ADIFF, GFR ####[place] [address] Potassium [Moles/Vol] 4.2 mmol/L Normal 3.5-5.0 [facility] Comment on above: Performed By: #### B MP, ANEU, CBC, MG, ADIFF, GFR ####[place] [address] Sodium [Moles/Vol] 142 mmol/L Normal 136-145 [facility] Comment on above: Performed By: #### B MP, ANEU, CBC, MG, ADIFF, GFR ####[place] [address] CBCon 05-07-2025 Erythrocyte distribution width (RBC) [Ratio] 15.4 % Normal 11.5-15.5 [facility] Comment on above: Performed By: #### B MP, ANEU, CBC, MG, ADIFF, GFR ####[address] [place] [address] Hematocrit (Bld) [Volume fraction] 36.7 % Normal 34.0-46.0 [facility] Comment on above: Performed By: #### B MP, ANEU, CBC, MG, ADIFF, GFR ####[place] [address] Hgb 12.2 G/dL Normal 12.0-16.0 [facility] Comment on above: Performed By: #### B MP, ANEU, CBC, MG, ADIFF, GFR ####[place] [address] MCH (RBC) [Entitic mass] 32.8 pg Normal 27.0-33.0 [facility] Comment on above: Performed By: #### B MP, ANEU, CBC, MG, ADIFF, GFR ####[place] [address] MCHC 33.4 G/dL Normal 32.0-36.0 [facility] Comment on above: Performed By: #### B MP, ANEU, CBC, MG, ADIFF, GFR ####[place] [address] MCV (RBC) [Entitic vol] 98.4 fL Normal 80.0-99.0 [facility] Comment on above: Performed By: #### B MP, ANEU, CBC, MG, ADIFF, GFR ####[place] [address] Platelet 318 10 3/mcL Normal 150-450 [facility] Comment on above: Performed By: #### B MP, ANEU, CBC, MG, ADIFF, GFR ####[place] [address] Platelet mean volume (Bld) [Entitic vol] 7.0 fL Normal 6.6-10.5 [facility] Comment on above: Performed By: #### B MP, ANEU, CBC, MG, ADIFF, GFR ####[place] [address] RBC 3.73 10 6/mcL Low 4.10-5.30 [facility] Comment on above: Performed By: #### B MP, ANEU, CBC, MG, ADIFF, GFR ####[facility] [place] [address] WBC 8.8 10 3/mcL Normal 4.5-10.8 [facility] Comment on above: Performed By: #### B MP, ANEU, CBC, MG, ADIFF, GFR ####[facility] [place] [address] LABORATORYOrdered By: SYSTEM SYSTEM on 05-07-2025 Basophils (Bld) [#/Vol] 0.1 103/mcL Normal 0.0 - 0.3 10^3/mcL Workflow SS Basophils/100 WBC (Bld) 0.9 % Normal 0.0 - 2.5 % Workflow SS Calcium [Mass/Vol] 9.0 mg/dL Normal 8.7 - 10. 4 mg/dL ADM SS Chloride [Moles/Vol] 109 mmol/L Normal 98 - 11 0 mEq/L ADM SS CO2 [Moles/Vol] 26 mmol/L Normal 22 - 32 mEq/L ADM SS Creatinine [Mass/Vol] 0.83 mg/dL Normal 0.50 - 1.20 mg/dL ADM SS Comment on above: Interpretive Data: T esting performed on [employer] CH analyzer using enzymatic creatinine methodology. Electrolyte [...] 91 mg/dL Normal 70 - 110 mg/dL AH ADM SS Hematocrit (Bld) [Volume fraction] 36.7 % Normal 34.0 - 46.0 % AH Workflow SS Hemoglobin (Bld) [Mass/Vol] 12.2 G/dL Normal 12.0 - 16.0 G/dL AH Workflow SS Lymphocytes (Bld) [#/Vol] 2.0 103/mcL Normal 0.9 - 4.3 10^3/mcL AH Workflow SS Lymphocytes/100 WBC (Bld) 22.6 % Normal 20.0 - 40.0 % AH Workflow SS Magnesium [Mass/Vol] 2.0 mg/dL Normal 1.6 - 2 .4 mg/dL ADM SS MCH (RBC) [Entitic mass] 32.8 pg Normal 27.0 - 33.0 pg AH Workflow SS MCHC 33.4 G/dL Normal 32.0 [...] 5.0 mEq/L ADM SS RBC (Bld) [#/Vol] 3.73 106/mcL [...] 05-07-2025 Magnesium [Mass/Vol] 2.0 mg/dL Normal 1.6-2.4 [facility] Comment on above: Performed By: #### B MP, ANEU, CBC, MG, ADIFF, GFR ####[address] [address] URINE CULTURE [CCL]on 2024 Bacteria identified Cx Nom (U) Normal [facility] Comment on above: Performed By: #### 2 [id number] ####[facility],[address] [place] [address] .Auto Diffon 05-05-2025 Basophil, Absolute 0.1 10 3/mcL Normal 0.0-0.3 [facility] Comment on above: Performed By: #### C BC, ANEU, ADIFF ####[address] [address] Basophils/100 WBC (Bld) 1.0 % Normal 0.0-2.5 [facility] Comment on above: Performed By: #### C BC, ANEU, ADIFF ####[place] [id number] [place] [address] Eosinophil, Absolute 0.2 10 3/mcL Normal 0.0-0.[address] [facility] Comment on above: Performed By: #### C BC, ANEU, ADIFF ####[address] [address] Eosinophils/100 WBC (Bld) 3.0 % Normal 0.0-6.0 [facility] Comment on above: Performed By: #### C BC, ANEU, ADIFF ####[facility] [place] [address] Lymphocyte, Absolute 2.3 10 3/mcL Normal 0.9-4.[address] [facility] Comment on above: Performed By: #### C BC, ANEU, ADIFF ####[facility] [place] [address] Lymphocytes/100 WBC (Bld) 32.4 % Normal 20.0-40.0 [facility] Comment on above: Performed By: #### C BC, ANEU, ADIFF ####[facility] [place] [address] Monocyte, Absolute 0.6 10 3/mcL Normal 0.1-1.4 [facility] Comment on above: Performed By: #### C BC, ANEU, ADIFF ####[facility] [place] [address] Monocytes/100 WBC (Bld) 8.2 % Normal 2.0-13.0 [facility] Comment on above: Performed By: #### C BC, ANEU, ADIFF ####[facility] [place] [address] Neutrophils/100 WBC (Bld) 55.4 % Normal 50.0-75.0 [facility] Comment on above: Performed By: #### C BC, ANEU, ADIFF ####[facility] [place] [address] .GFRon 05-05-2025 Estimated Glomerular Filtration Rate 84 ml/min/1.73sqm Normal [facility] Comment on above: Result [...] results. Performed By: #### B MP, GFR ####[place] [address] .NEUABSon 05-05-2025 Neutrophil, Absolute 3.9 10 3/mcL Normal 2.3-8.[address] [facility] Comment on above: Performed By: #### C BC, ANEU, ADIFF ####[place] [address] BMPon 05-05-2025 BUN/Creatinine Ratio 6.6 ratio Low 10.0-22.0 [facility] Comment on above: Order Comment: Routi ne for 0501 the morning of patient admission. Performed By: #### B MP, GFR ####[place] [address] Calcium [Mass/Vol] 8.8 mg/dL Normal 8.7-10.4 [facility] Comment on above: Order Comment: Routi ne for 0501 the morning of patient admission. Performed By: #### B MP, GFR ####[place] [address] Chloride [Moles/Vol] 111 mmol/L High 98-110 [facility] Comment on above: Order Comment: Routi ne for 0501 the morning of patient admission. Performed By: #### B MP, GFR ####[place] [id number] CO2 [Moles/Vol] 22 mmol/L Normal 22-32 [facility] Comment on above: Order Comment: Routi ne for 0501 the morning of patient admission. Performed By: #### B MP, GFR ####[place] [address] Creatinine [Mass/Vol] 0.91 mg/dL Normal 0.50-1.20 [facility] Comment on above: Order Comment: Routi ne for 0501 the morning of patient admission. Result Comment: Test ing performed on Cortexica analyzer using enzymatic creatinine methodology. Performed By: #### B MP, GFR ####[place] [address] Electrolyte Balance 9.0 mEq/L Normal 4.0-15.0 [facility] Comment on above: Order Comment: Routi ne for 0501 the morning of patient admission. Performed By: #### B MP, GFR ####[place] [address] Glucose [Mass/Vol] 84 mg/dL Normal 70-110 [facility] Comment on above: Order Comment: Routi ne for 0501 the morning of patient admission. Performed By: #### B MP, GFR ####[place] [address] Potassium [Moles/Vol] 4.1 mmol/L Normal 3.5-5.0 [facility] Comment on above: Order Comment: Routi ne for 0501 the morning of patient admission. Performed By: #### B MP, GFR ####[place] [address] Sodium [Moles/Vol] 142 mmol/L Normal 136-145 [facility] Comment on above: Order Comment: Routi ne for 0501 the morning of patient admission. Performed By: #### B MP, GFR ####[place] [address] Urea nitrogen [Mass/Vol] 6.0 mg/dL Low 8.0-22.0 [facility] Comment on above: Order Comment: Routi ne for 0501 the morning of patient admission. Performed By: #### B MP, GFR ####[place] [address] CBCon 05-05-2025 Erythrocyte distribution width (RBC) [Ratio] 15.5 % Normal 11.5-15.5 [facility] Comment on above: Order Comment: Routi ne for 0501 the morning of patient admission. Performed By: #### C BC, ANEU, ADIFF ####[place] [address] Hematocrit (Bld) [Volume fraction] 33.8 % Low 34.0-46.0 [facility] Comment on above: Order Comment: Routi ne for 0501 the morning of patient admission. Performed By: #### C BC ANEU, ADIFF ####[place] [address] Hgb 11.7 G/dL Low 12.0-16.0 [facility] Comment on above: Order Comment: Routi ne for 0501 the morning of patient admission. Performed By: #### C BC, ANEU, ADIFF ####[place] [address] MCH (RBC) [Entitic mass] 33.5 pg High 27.0-33.0 [facility] Comment on above: Order Comment: Routi ne for 0501 the morning of patient admission. Performed By: #### C BC ANEU, ADIFF ####[place] [address] MCHC 34.6 G/dL Normal 32.0-36.0 [facility] Comment on above: Order Comment: Routi ne for 0501 the morning of patient admission. Performed By: #### C BC ANEU, ADIFF ####[place] [address] MCV (RBC) [Entitic vol] 96.8 fL Normal 80.0-99.0 [facility] Comment on above: Order Comment: Routi ne for 0501 the morning of patient admission. Performed By: #### C BC ANEU, ADIFF ####[place] [address] Platelet 350 10 3/mcL Normal 150-450 [facility] Comment on above: Order Comment: Routi ne for 0501 the morning of patient admission. Performed By: #### C BC ANEU, ADIFF ####[place] [address] Platelet mean volume (Bld) [Entitic vol] 7.0 fL Normal 6.6-10.5 [facility] Comment on above: Order Comment: Routi ne for 0501 the morning of patient admission. Performed By: #### C BC, ANEU, ADIFF ####[place] [address] RBC 3.49 10 6/mcL Low 4.10-5.30 [facility] Comment on above: Order Comment: Josh camejo for 0501 the morning of patient admission. Performed By: #### C GURMEET PERES, ADIFF ####[id number] [place] [address] WBC 7.1 10 3/mcL Normal 4.5-10.8 [facility] Comment on above: Order Comment: Josh camejo for 0501 the morning of patient admission. Performed By: #### C GURMEET PERES, ADIFF ####[facility] [place] [address] IR NEPHROSTOMY TUBEon 2024 IR NEPHROSTOMY TUBE Normal [facility] LABORATORYOrdered By: SYSTEM SYSTEM on 05-05-2025 Basophils (Bld) [#/Vol] 0.1 103/mcL Normal 0.0 - 0.3 10^3/mcL Workflow SS Basophils/100 WBC (Bld) 1.0 % Normal 0.0 - 2.5 % Workflow SS Calcium [Mass/Vol] 8.8 mg/dL Normal 8.7 - 10. 4 mg/dL ADM SS Chloride [Moles/Vol] 111 mmol/L High 98 - 11 0 mEq/L ADM SS CO2 [Moles/Vol] 22 mmol/L Normal 22 - 32 mEq/L ADM SS Creatinine [Mass/Vol] 0.91 mg/dL Normal 0.50 - 1.20 mg/dL ADM SS Comment on above: Interpretive Data: T esting performed on Cortexica analyzer using enzymatic creatinine methodology. Electrolyte Balance [...] AH ADM SS Hematocrit (Bld) [Volume fraction] 33.8 [...] 4.1 mmol/L Normal 3.5 - 5.0 mEq/L ADM SS RBC (Bld) [#/Vol] 3.49 106/mcL [...] test) Ql (U) Negative (05/05/25 12:44 AM) [facility] Work Phone: .Auto Diffon 05-04-2025 Basophil, Absolute 0.1 10 3/mcL Normal 0.0-0.3 [facility] Comment on above: Performed By: #### B MP, CBC, GFR, ADGURMEET CHOUDHURY MDW ####[address] [address] Basophils/100 WBC (Bld) 0.8 % Normal 0.0-2.5 [facility] Comment on above: Performed By: #### B MP, CBC, GFR, ADGURMEET CHOUDHURY MDW ####[place] [id number] [place] [address] Eosinophil, Absolute 0.1 10 3/mcL Normal 0.0-0.[address] [facility] Comment on above: Performed By: #### B MP, CBC, GFR, ADGURMEET CHOUDHURY MDW ####[place] [id number] [place] [address] Eosinophils/100 WBC (Bld) 1.2 % Normal 0.0-6.0 [facility] Comment on above: Performed By: #### B MP, CBC, GFR, ADGURMEET CHOUDHURY MDW ####[address] [address] Lymphocyte, Absolute 2.2 10 3/mcL Normal 0.9-4.[address] [facility] Comment on above: Performed By: #### B MP, CBC, GFR, ADGURMEET CHOUDHURY MDW ####[address] [address] Lymphocytes/100 WBC (Bld) 28.8 % Normal 20.0-40.0 [facility] Comment on above: Performed By: #### B MP, CBC, GFR, ADGURMEET CHOUDHURY MDW ####[address] [address] Monocyte, Absolute 0.6 10 3/mcL Normal 0.1-1.4 [facility] Comment on above: Performed By: #### B MP, CBC, GFR, ADGURMEET CHOUDHURY MDW ####[address] [address] Monocytes/100 WBC (Bld) 7.4 % Normal 2.0-13.0 [facility] Comment on above: Performed By: #### B MP, CBC, GFR, ADGURMEET CHOUDHURY MDW ####[address] [address] Neutrophils/100 WBC (Bld) 61.8 % Normal 50.0-75.0 [facility] Comment on above: Performed By: #### B MP, CBC, GFR, ADGURMEET CHOUDHURY MDW ####[address] [address] .GFRon 05-04-2025 Estimated Glomerular Filtration Rate 83 ml/min/1.73sqm Normal [facility] Comment on above: Result [...] B MP, CBC, GFR, GURMEET SIDDIQUI MDW ####[address] [address] .MDWon 05-04-2025 Monocyte Distribution Width 19.63 Normal 0.00-20.00 [facility] Comment on above: Result Comment: For ED adult patients suspected of sepsis, MDW<=20.0 does not rule out sepsis or risk of sepsis Performed By: #### B MP, CBC, GFR, ADGURMEET CHOUDHURY MDW ####[address] [address] .NEUABSon 05-04-2025 Neutrophil, Absolute 4.6 10 3/mcL Normal 2.3-8.[address] [facility] Comment on above: Performed By: #### B MP, CBC, GFR, ADGURMEET CHOUDHURY MDW ####[place] [address] BMPon 05-04-2025 BUN/Creatinine Ratio Unable to Calculate Normal 10.0-2 2.0 [facility] Comment on above: Result Comment: Unab le to calculate this test result accurately. Results used to calculate this test are outside the reportable range. Performed By: #### B MP, CBC, GFR, ADGURMEET CHOUDHURY MDW ####[place] [address] Urea nitrogen [Mass/Vol] mg/dL Low 8.0-22.0 [facility] Comment on above: Performed By: #### B MP, CBC, GFR, ADGURMEET CHOUDHURY MDW ####[place] [address] Calcium [Mass/Vol] 9.2 mg/dL Normal 8.7-10.4 [facility] Comment on above: Performed By: #### B MP, CBC, GFR, ADGURMEET CHOUDHURY MDW ####[place] [address] Chloride [Moles/Vol] 109 mmol/L Normal 98-110 [facility] Comment on above: Performed By: #### B MP, CBC, GFR, ADMACEY ANEU, MDW ####[address] [address] CO2 [Moles/Vol] 25 mmol/L Normal 22-32 [facility] Comment on above: Performed By: #### B MP, CBC, GFR, GURMEET SIDDIQUI MDW ####[address] [address] Creatinine [Mass/Vol] 0.92 mg/dL Normal 0.50-1.20 [facility] Comment on above: Result Comment: Test ing performed on Cortexica analyzer using enzymatic creatinine methodology. Performed By: #### B MP, CBC, GFR, GURMEET SIDDIQUI MDW ####[place] [address] Electrolyte Balance 8.0 mEq/L Normal 4.0-15.0 [facility] Comment on above: Performed By: #### B MP, CBC, GFRCHEN ANEU, MDW ####[place] [address] Glucose [Mass/Vol] 91 mg/dL Normal 70-110 [facility] Comment on above: Performed By: #### B MP, CBC, GFRCHEN ANEU, MDW ####[address] [address] Potassium [Moles/Vol] 4.2 mmol/L Normal 3.5-5.0 [facility] Comment on above: Performed By: #### B MP, CBC, GFR, GURMEET SIDDIQUI MDW ####[place] [address] Sodium [Moles/Vol] 142 mmol/L Normal 136-145 [facility] Comment on above: Performed By: #### B MP, CBC, GFRCHEN ANEU, MDW ####[address] [address] CBCon 05-04-2025 Erythrocyte distribution width (RBC) [Ratio] 15.4 % Normal 11.5-15.5 [facility] Comment on above: Performed By: #### B MP, CBC, GFR, GURMEET SIDDIQUI MDW ####[place] [address] Hematocrit (Bld) [Volume fraction] 35.2 % Normal 34.0-46.0 [facility] Comment on above: Performed By: #### B MP, CBC, GFR, GURMEET SIDDIQUI MDW ####[place] [address] Hgb 12.6 G/dL Normal 12.0-16.0 [facility] Comment on above: Performed By: #### B MP, CBC, GFR, GURMEET SIDDIQUI MDW ####[place] [address] MCH (RBC) [Entitic mass] 33.7 pg High 27.0-33.0 [facility] Comment on above: Performed By: #### B MP, CBC, GFR, GURMEET SIDDIQUI MDW ####[place] [address] MCHC 35.7 G/dL Normal 32.0-36.0 [facility] Comment on above: Performed By: #### B MP, CBC, GFR, GURMEET SIDDIQUI MDW ####[place] [address] MCV (RBC) [Entitic vol] 94.3 fL Normal 80.0-99.0 [facility] Comment on above: Performed By: #### B MP, CBC, GFR, GURMEET SIDDIQUI MDW ####[place] [address] Platelet 336 10 3/mcL Normal 150-450 [facility] Comment on above: Performed By: #### B MP, CBC, GFR, GURMEET SIDDIQUI MDW ####[place] [address] Platelet mean volume (Bld) [Entitic vol] 6.6 fL Normal 6.6-10.5 [facility] Comment on above: Performed By: #### B MP, CBC, GFR, GURMEET SIDDIQUI MDW ####[place] [address] RBC 3.73 10 6/mcL Low 4.10-5.30 [facility] Comment on above: Performed By: #### B MP, CBC, GFR, GURMEET SIDDIQUI MDW ####[id number] [place] [address] WBC 7.5 10 3/mcL Normal 4.5-10.8 [facility] Comment on above: Performed By: #### B MP, CBC, GFR, GURMEET SIDDIQUI MDW ####[facility] [place] [address] CURon 05-04-2025 CUR Normal [facility] ED MED ADMINISTRATION DETAIL on 05-04-2025 ED MED ADMINISTRATION DETAIL Normal [facility] ED NURSES CLINICAL NOTEon ED NURSES CLINICAL NOTE Normal [facility] ED ORDER SHEET (CPOE ONLY)on 05-04-2025 ED ORDER SHEET (CPOE ONLY) Normal [facility] ED PHYSICIAN CLINICAL REPORT on 05-04-2025 ED PHYSICIAN CLINICAL REPORT Normal [facility] ED SUPER BILLon 05-04-2025 ED SUPER BILL Normal [facility] ED VISIT SUMMARYon ED VISIT SUMMARY Normal [facility] ED VITALS FLOW SHEETon 05-04 ED VITALS FLOW SHEET Normal [facility] LABORATORYOrdered By: Alanna Russo on 05-04-2025 Appearance (U) Clear (05/04/25 9:38 PM) Normal Clear Auto Urine SS Bilirubin Ql (U) Negative (05/04/25 9:38 PM) Normal Neg-Trace Auto Urine SS Color (U) Yellow (05/04/25 [...] Grav 1.010 (05/04/25 9:38 PM) Normal 1.006-1.029 Auto Urine SS UA Specimen Type Void (05/04/25 9:38 PM) Normal Auto Urine SS UA Urobilinogen 0.2 E.U./dL Normal 0.2-1.0 Auto Urine SS LABORATORYOrdered By: SYSTEM SYSTEM on 05-04-2025 Basophils (Bld) [#/Vol] 0.1 103/mcL Normal 0.0 - 0.3 10^3/mcL AH Workflow SS Basophils/100 WBC (Bld) 0.8 % Normal 0.0 - 2.5 % AH Workflow SS Calcium [Mass/Vol] 9.2 mg/dL Normal 8.7 - 10. 4 mg/dL ADM SS Chloride [Moles/Vol] 109 mmol/L Normal 98 - 11 0 mEq/L ADM SS CO2 [Moles/Vol] 25 mmol/L Normal 22 - 32 mEq/L ADM SS Creatinine [Mass/Vol] 0.92 mg/dL Normal 0.50 - 1.20 mg/dL ADM SS Comment on above: Interpretive Data: T esting performed on Cortexica analyzer using enzymatic creatinine methodology. Electrolyte Balance 8.0 mEq/L Normal 4.0 - 15 .0 mEq/L ADM SS Eosinophils (Bld) [#/Vol] 0.1 103/mcL Normal 0.0 - 0.7 10^3/mcL AH Workflow SS Eosinophils/100 WBC (Bld) 1.2 % Normal 0.0 - 6.0 % AH Workflow SS Erythrocyte distribution width (RBC) [Ratio] 15.4 % Normal 11.5 - 15.5 % AH Workflow SS Estimated Glomerular Filtration Rate 83 [...] 91 mg/dL Normal 70 - 110 mg/dL AH ADM SS Hematocrit (Bld) [Volume fraction] 35.2 % Normal 34.0 - 46.0 % AH Workflow SS Hemoglobin (Bld) [Mass/Vol] 12.6 G/dL Normal 12.0 - 16.0 G/dL AH Workflow SS Lymphocytes (Bld) [#/Vol] 2.2 103/mcL Normal 0.9 - 4.3 10^3/mcL AH Workflow SS Lymphocytes/100 WBC (Bld) 28.8 % Normal 20.0 - 40.0 % AH Workflow SS MCH (RBC) [Entitic mass] 33.7 pg High 27.0 - 33.0 pg AH Workflow SS MCHC 35.7 G/dL Normal 32.0 [...] 5.0 mEq/L ADM SS RBC (Bld) [#/Vol] 3.73 106/mcL Low 4.10 - 5.3 0 10^6/mcL Workflow SS Sodium [Moles/Vol] 142 mmol/L Normal [...] range. UAon 05-04-2025 Color (U) Yellow Normal [facility] Comment on above: Performed By: #### U A ####[place] [address] Glucose (U) [Mass/Vol] Negative Normal Negative [facility] Comment on above: Performed By: #### U A ####[place] [address] Ketones Ql (U) Negative Normal Neg-Trace [facility] Comment on above: Performed By: #### U A ####[place] [id number] UA Appear Clear Normal Clear [facility] Comment on above: Performed By: #### U A ####[address] [address] UA Blood Negative Normal Neg-Trace [facility] Comment on above: Performed By: #### U A ####[address] [address] UA Leuk Est Negative Normal Negative [facility] Comment on above: Performed By: #### U A ####[place] [id number] UA Nitrite Negative Normal Negative [facility] Comment on above: Performed By: #### U A ####[place] [address] UA pH 8.0 Normal 5.0 - 8.0 [facility] Comment on above: Performed By: #### U A ####[place] [address] UA Protein Negative Normal Negative [facility] Comment on above: Performed By: #### U A ####[place] [address] UA Spec Grav 1.010 Normal 1.006-1.029 [facility] Comment on above: Performed By: #### U A ####[place] [address] UA Specimen Type Void Normal [facility] Comment on above: Performed By: #### U A ####[place] [address] UA Urobilinogen 0.2 E.U./dL Normal 0.2-1.0 [facility] Comment on above: Performed By: #### U A ####[place] [address] Urobilinogen (U) [Mass/Vol] Negative Normal Neg-Trace [facility] Comment on above: Performed By: #### U A ####[place] [address] .Auto Diffon 05-03-2025 Basophil, Absolute 0.0 10 3/mcL Normal 0.0-0.3 [facility] Comment on above: Performed By: #### C BC, KI, YOUNG SIDDIQUI, GFR, ANEU, CMP ####[place] [address] Basophils/100 WBC (Bld) 0.5 % Normal 0.0-2.5 [facility] Comment on above: Performed By: #### C BC, KI, CHEN, YOUNG, GFR, ANEU, CMP ####[place] [address] Eosinophil, Absolute 0.2 10 3/mcL Normal 0.0-0.[address] [facility] Comment on above: Performed By: #### C BC, LAC, ADIFF, MDW, GFR, ANEU, CMP ####[address] [address] Eosinophils/100 WBC (Bld) 2.5 % Normal 0.0-6.0 [facility] Comment on above: Performed By: #### C BC, LAC, ADIFF, MDW, GFR, ANEU, CMP ####[address] [address] Lymphocyte, Absolute 2.1 10 3/mcL Normal 0.9-4.[address] [facility] Comment on above: Performed By: #### C BC, LAC, ADIFF, MDW, GFR, ANEU, CMP ####[address] [address] Lymphocytes/100 WBC (Bld) 23.8 % Normal 20.0-40.0 [facility] Comment on above: Performed By: #### C BC, LAC, ADIFF, MDW, GFR, ANEU, CMP ####[address] [address] Monocyte, Absolute 0.9 10 3/mcL Normal 0.1-1.4 [facility] Comment on above: Performed By: #### C BC, LAC, ADIFF, MDW, GFR, ANEU, CMP ####[address] [address] Monocytes/100 WBC (Bld) 10.3 % Normal 2.0-13.0 [facility] Comment on above: Performed By: #### C BC, LAC, ADIFF, MDW, GFR, ANEU, CMP ####[address] [address] Neutrophils/100 WBC (Bld) 62.9 % Normal 50.0-75.0 [facility] Comment on above: Performed By: #### C BC, LAC, ADIFF, MDW, GFR, ANEU, CMP ####[address] [address] .GFRon 05-03-2025 Estimated Glomerular Filtration Rate 84 ml/min/1.73sqm Normal [facility] Comment on above: Result [...] BC, LAC, ADIFF, MDW, GFR, ANEU, CMP ####[place] [address] .MDWon 05-03-2025 Monocyte Distribution Width 19.35 Normal 0.00-20.00 [facility] Comment on above: Result Comment: For ED adult patients suspected of sepsis, MDW<=20.0 does not rule out sepsis or risk of sepsis Performed By: #### C BC, LAC, ADIFF, MDW, GFR, ANEU, CMP ####[place] [address] .NEUABSon 05-03-2025 Neutrophil, Absolute 5.5 10 3/mcL Normal 2.3-8.[address] [facility] Comment on above: Performed By: #### C BC, LAC, ADIFF, MDW, GFR, ANEU, CMP ####[place] [address] CBCon 05-03-2025 Erythrocyte distribution width (RBC) [Ratio] 15.1 % Normal 11.5-15.5 [facility] Comment on above: Performed By: #### C BC, LAC, ADIFF, MDW, GFR, ANEU, CMP ####[place] [address] Hematocrit (Bld) [Volume fraction] 36.4 % Normal 34.0-46.0 [facility] Comment on above: Performed By: #### C BC, LAC, ADIFF, MDW, GFR, ANEU, CMP ####[place] [address] Hgb 12.3 G/dL Normal 12.0-16.0 [facility] Comment on above: Performed By: #### C BC, LAC, ADIFF, MDW, GFR, ANEU, CMP ####[place] [address] MCH (RBC) [Entitic mass] 32.5 pg Normal 27.0-33.0 [facility] Comment on above: Performed By: #### C BC, LAC, ADIFF, MDW, GFR, ANEU, CMP ####[place] [address] MCHC 33.9 G/dL Normal 32.0-36.0 [facility] Comment on above: Performed By: #### C BC, LAC, ADIFF, MDW, GFR, ANEU, CMP ####[place] [address] MCV (RBC) [Entitic vol] 96.0 fL Normal 80.0-99.0 [facility] Comment on above: Performed By: #### C BC, LAC, ADIFF, MDW, GFR, ANEU, CMP ####[place] [address] Platelet 314 10 3/mcL Normal 150-450 [facility] Comment on above: Performed By: #### C BC, LAC, ADIFF, MDW, GFR, ANEU, CMP ####[place] [address] Platelet mean volume (Bld) [Entitic vol] 7.4 fL Normal 6.6-10.5 [facility] Comment on above: Performed By: #### C BC, LAC, ADIFF, MDW, GFR, ANEU, CMP ####[place] [address] RBC 3.79 10 6/mcL Low 4.10-5.30 [facility] Comment on above: Performed By: #### C BC, LAC, ADIFF, MDW, GFR, ANEU, CMP ####[place] [address] WBC 8.7 10 3/mcL Normal 4.5-10.8 [facility] Comment on above: Performed By: #### C BC, LAC, ADMACEY, MDW, GFR, ANEU, CMP ####[facility] [place] [address] CBC + DIFFon 05-03-2025 Baso # 0.03 x10EE3/UL Normal 0.00 - 0.10 [facility] Comment on above: Performed By: #### 2 17717 ####[facility],[address] [place], [place] [id number] Basophils/100 WBC (Bld) 0.4 % Normal 0.0 - 2.0 [facility] Comment on above: Performed By: #### 2 97102 ####[facility],[address] [place] [address] CBC + DIFF Normal [facility] Comment on above: Result Comment: CBC- COMPLETE BLOOD COUNT Performed By: #### 2 45030 ####[facility],[address] [place] [address] EO # 0.29 x10EE3/UL Normal 0.00 - 0.50 [facility] Comment on above: Performed By: #### 2 36824 ####[facility],[address] [place] [address] Eosinophils/100 WBC (Bld) 3.4 % Normal 0.0 - 7.0 [facility] Comment on above: Performed By: #### 2 33719 ####[facility],[address] [place], [place] [address] Erythrocyte distribution width (RBC) [Ratio] 14.2 % Normal 12.0 - 15.6 [facility] Comment on above: Performed By: #### 2 97967 ####[facility],[address] [place] [address] Hematocrit (Bld) [Volume fraction] 32.5 % Low 34.0 - 46.0 [facility] Comment on above: Performed By: #### 2 12697 ####[facility],[address] [place] [address] Hemoglobin (Bld) [Mass/Vol] 11.5 g/dL Low 12.0 - 16.0 [facility] Comment on above: Performed By: #### 2 01969 ####[facility],[address] [place] [address] Lymph # 1.68 x10EE3/UL Normal 0.80 - 2.80 [facility] Comment on above: Performed By: #### 2 28239 ####[facility],[address] [place] [address] Lymphocytes/100 WBC (Bld) 19.8 % Low 20.0 - 45.0 [facility] Comment on above: Performed By: #### 2 41391 ####[facility],[address] [place] [address] MANUAL DIFF N/A Normal [facility] Comment on above: Performed By: #### 2 83472 ####[facility],[address] [place] [address] MCH (RBC) [Entitic mass] 34 pg High 27 - 33 [facility] Comment on above: Performed By: #### 2 19046 ####[facility],[address] [place] [address] MCHC 35 X10 3 Normal 32 - 36 [facility] Comment on above: Performed By: #### 2 45162 ####[facility],[address] [place] [address] MCV (RBC) [Entitic vol] 97 fL Normal 80 - 99 [facility] Comment on above: Performed By: #### 2 20010 ####[facility],[address] [place] [address] [place] # 0.74 x10EE3/UL Normal 0.20 - 1.00 [facility] Comment on above: Performed By: #### 2 47438 ####[facility],[address] [place] [address] MONOS % 8.7 % Normal 0.0 - 10.0 [facility] Comment on above: Performed By: #### 2 93419 ####[facility],[address] [place] [address] Morphology Efra (Bld) [Interp] N/A Normal [facility] Comment on above: Performed By: #### 2 44594 ####[facility],[address] [place] [address] Neut # 5.74 x10EE3/UL Normal 1.50 - 7.10 [facility] Comment on above: Performed By: #### 2 61791 ####[facility],[address] [place] [address] Neutrophils/100 WBC (Bld) 67.7 % Normal 46.0 - 76.0 [facility] Comment on above: Performed By: #### 2 60363 ####[facility],[address] [place] [address] PLATELET 328 x10EE3/UL Normal 150 - 450 [facility] Comment on above: Performed By: #### 2 81098 ####[facility],[address] [place] [address] Platelet mean volume (Bld) [Entitic vol] 6.8 fL Normal 6.6 - 10.5 [facility] Comment on above: Result Comment: AUTO MATED DIFFERENTIAL Performed By: #### [id number] ####[facility],[address] [place] [id number] RBC 3.35 x 10EE6/UL Low 4.10 - 5.30 [facility] Comment on above: Performed By: #### [id number] ####[facility],[address] [place] [id number] WBC 8.5 x 10EE3/UL Normal 4.5 - 10.8 [facility] Comment on above: Performed By: #### [id number] ####[facility],[address] [place] [address] Baso # 0.04 x10EE3/UL Normal 0.00 - 0.10 [facility] Comment on above: Performed By: #### [id number] ####[facility],[address] [place] [address] Basophils/100 WBC (Bld) 0.4 % Normal 0.0 - 2.0 [facility] Comment on above: Performed By: #### [id number] ####[facility],[address] [place] [address] CBC + DIFF Normal [facility] Comment on above: Result Comment: CBC- COMPLETE BLOOD COUNT Performed By: #### [id number] ####[facility],[address] [place] [address] EO # 0.23 x10EE3/UL Normal 0.00 - 0.50 [facility] Comment on above: Performed By: #### [id number] ####[facility],[address] [place] [address] Eosinophils/100 WBC (Bld) 2.4 % Normal 0.0 - 7.0 [facility] Comment on above: Performed By: #### 2 58080 ####[facility],[address] [place] [address] Erythrocyte distribution width (RBC) [Ratio] 13.8 % Normal 12.0 - 15.6 [facility] Comment on above: Performed By: #### 2 79513 ####[facility],[address] [place] [address] Hematocrit (Bld) [Volume fraction] 37.3 % Normal 34.0 - 46.0 [facility] Comment on above: Performed By: #### 2 90299 ####[facility],[address] [place] [address] Hemoglobin (Bld) [Mass/Vol] 13.0 g/dL Normal 12.0 - 16.0 [facility] Comment on above: Performed By: #### 2 68679 ####[facility],[address] [place] [address] Lymph # 2.29 x10EE3/UL Normal 0.80 - 2.80 [facility] Comment on above: Performed By: #### 2 92040 ####[facility],[address] [place] [address] Lymphocytes/100 WBC (Bld) 23.2 % Normal 20.0 - 45.0 [facility] Comment on above: Performed By: #### 2 28817 ####[facility],[address] [place] [address] MANUAL DIFF N/A Normal [facility] Comment on above: Performed By: #### 2 27275 ####[facility],[address] [place] [address] MCH (RBC) [Entitic mass] 34 pg High 27 - 33 [facility] Comment on above: Performed By: #### 2 49239 ####[facility],[address] [place] [address] MCHC 35 X10 3 Normal 32 - 36 [facility] Comment on above: Performed By: #### 2 72582 ####[facility],[address] [place], [place] [phone] MCV (RBC) [Entitic vol] 96 fL Normal 80 - 99 [facility] Comment on above: Performed By: #### 2 90771 ####[facility],[address] [place], [place] [address] [place] # 0.89 x10EE3/UL Normal 0.20 - 1.00 [facility] Comment on above: Performed By: #### 2 88401 ####[facility],[address] [place] [address] MONOS % 9.0 % Normal 0.0 - 10.0 [facility] Comment on above: Performed By: #### 2 45212 ####[facility],[address] [place] [address] Morphology Efra (Bld) [Interp] N/A Normal [facility] Comment on above: Performed By: #### 2 15612 ####[facility],[address] [place] [address] Neut # 6.41 x10EE3/UL Normal 1.50 - 7.10 [facility] Comment on above: Performed By: #### 2 20973 ####[place] [address] Neutrophils/100 WBC (Bld) 65.1 % Normal 46.0 - 76.0 [facility] Comment on above: Performed By: #### 2 42362 ####[place] [address] PLATELET 371 x10EE3/UL Normal 150 - 450 [facility] Comment on above: Performed By: #### 2 47781 ####[place] [address] Platelet mean volume (Bld) [Entitic vol] 6.7 fL Normal 6.6 - 10.5 [facility] Comment on above: Result Comment: AUTO MATED DIFFERENTIAL Performed By: #### 2 89168 ####[facility],[address] [place], [place] [address] RBC 3.87 x 10EE6/UL Low 4.10 - 5.30 [facility] Comment on above: Performed By: #### 2 06639 ####[place] [id number] WBC 9.9 x 10EE3/UL Normal 4.5 - 10.8 [facility] Comment on above: Performed By: #### 2 15419 ####[facility],[address] [place], [place] [address] Albumin Level 3.5 G/dL Normal 3.2-4.8 [facility] Comment on above: Performed By: #### C BC, LAC, ADIFF, MDW, GFR, ANEU, CMP ####[place] [address] Albumin/Globulin [Mass ratio] 1.5 {ratio} Normal 0.9-1.6 [facility] Comment on above: Performed By: #### C BC, LAC, ADIFF, MDW, GFR, ANEU, CMP ####[address] [address] ALP [Catalytic activity/Vol] 62 U/L Normal 38-126 [facility] Comment on above: Performed By: #### C BC, LAC, ADIFF, MDW, GFR, ANEU, CMP ####[place] [address] ALT [Catalytic activity/Vol] 10 U/L Normal 10-49 [facility] Comment on above: Performed By: #### C BC, LAC, ADIFF, MDW, GFR, ANEU, CMP ####[place] [id number] AST [Catalytic activity/Vol] 22 U/L Normal 8-34 [facility] Comment on above: Performed By: #### C BC, LAC, ADIFF, MDW, GFR, ANEU, CMP ####[place] [address] Bili Total 0.20 mg/dL Normal 0.20-1.20 [facility] Comment on above: Result Comment: Use of this assay is not recommended for patients undergoing treatment with eltrombopag due to the potential for falsely elevated results. Performed By: #### C BC, LAC, ADIFF, MDW, GFR, ANEU, CMP ####[place] [address] BUN/Creatinine Ratio 8.8 ratio Low 10.0-22.0 [facility] Comment on above: Performed By: #### C BC, LAC, ADIFF, MDW, GFR, ANEU, CMP ####[place] [id number] Calcium [Mass/Vol] 8.3 mg/dL Low 8.7-10.4 [facility] Comment on above: Performed By: #### C BC, LAC, ADIFF, MDW, GFR, ANEU, CMP ####[place] [address] Chloride [Moles/Vol] 111 mmol/L High 98-110 [facility] Comment on above: Performed By: #### C BC, LAC, ADIFF, MDW, GFR, ANEU, CMP ####[place] [id number] CO2 [Moles/Vol] 24 mmol/L Normal 22-32 [facility] Comment on above: Performed By: #### C BC, LAC, ADIFF, MDW, GFR, ANEU, CMP ####[place] [address] Creatinine [Mass/Vol] 0.91 mg/dL Normal 0.50-1.20 [facility] Comment on above: Result Comment: Test ing performed on Cortexica analyzer using enzymatic creatinine methodology. Performed By: #### C BC, LAC, ADIFF, MDW, GFR, ANEU, CMP ####[place] [address] Electrolyte Balance 4.0 mEq/L Normal 4.0-15.0 [facility] Comment on above: Performed By: #### C BC, LAC, ADIFF, MDW, GFR, ANEU, CMP ####[place] [id number] Globulin 2.4 G/dL Low 2.5-4.2 [facility] Comment on above: Performed By: #### C BC, LAC, ADIFF, MDW, GFR, ANEU, CMP ####[place] [address] Glucose [Mass/Vol] 85 mg/dL Normal 70-110 [facility] Comment on above: Performed By: #### C BC, LAC, ADIFF, MDW, GFR, ANEU, CMP ####[place] [address] [place] [address] Potassium [Moles/Vol] 5.0 mmol/L Normal 3.5-5.0 [facility] Comment on above: Result Comment: Spec imen slightly hemolyzed. Performed By: #### C BC, LAC, ADIFF, MDW, GFR, ANEU, CMP ####[address] [address] Sodium [Moles/Vol] 139 mmol/L Normal 136-145 [facility] Comment on above: Performed By: #### C BC, LAC, ADIFF, MDW, GFR, ANEU, CMP ####[address] [address] Total Protein 5.9 G/dL Normal 5.7-8.2 [facility] Comment on above: Performed By: #### C BC, LAC, ADIFF, MDW, GFR, ANEU, CMP ####[address] [address] Urea nitrogen [Mass/Vol] 8.0 mg/dL Normal 8.0-22.0 [facility] Comment on above: Performed By: #### C BC, LAC, ADIFF, MDW, GFR, ANEU, CMP ####[address] [address] CMP with eGFRon 05-03-2025 AGE 34 years Normal [facility] Comment on above: Performed By: #### 2 18276 ####[facility],[address] [place], [place] [phone] Albumin [Mass/Vol] 2.9 g/dL Low 3.4 - 5.0 [facility] Comment on above: Performed By: #### 2 77050 ####[facility],[address] [place], [place] [address] Albumin/Globulin [Mass ratio] 1.0 {ratio} Normal 0.9 - 1.6 [facility] Comment on above: Performed By: #### 2 16791 ####[facility],[address],[place] [address] ALK PHOS 64 U/L Normal 46 - 116 [facility] Comment on above: Performed By: #### 2 54901 ####[facility],[address] [place] [address] ALT [Catalytic activity/Vol] 17 U/L Normal 16 - 63 [facility] Comment on above: Performed By: #### 2 99395 ####[facility],[address] [place] [address] Anion gap [Moles/Vol] 11 mmol/L Normal 10 - 20 [facility] Comment on above: Performed By: #### 2 92059 ####[facility],[address] [place] [address] AST [Catalytic activity/Vol] 15 U/L Normal 13 - 39 [facility] Comment on above: Performed By: #### 2 22773 ####[facility],[address] [place] [address] B/C RATIO 9 ratio Normal 0 - 30 [facility] Comment on above: Performed By: #### 2 92555 ####[facility],[address] [place] [address] Bilirubin [Mass/Vol] 0.3 mg/dL Normal 0.2 - 1.0 [facility] Comment on above: Performed By: #### 2 18839 ####[facility],[address] [place] [address] Calcium [Mass/Vol] 8.3 mg/dL Low 8.5 - 10.1 [facility] Comment on above: Performed By: #### 2 96335 ####[facility],[address] [place] [address] Chloride [Moles/Vol] 107 mmol/L Normal 98 - 107 [facility] Comment on above: Performed By: #### 2 18740 ####[facility],[address] [place] [address] CMP with eGFR Normal [facility] Comment on above: Result Comment: COMP REHENSIVE METABOLIC PANEL Performed By: #### 2 14321 ####[facility],[address] [place], [place] [address] CO2 [Moles/Vol] 25.1 mmol/L Normal 21.0 - 32.0 [facility] Comment on above: Performed By: #### 2 18245 ####[place] [id number] Creatinine [Mass/Vol] 0.81 mg/dL Normal 0.55 - 1.02 [facility] Comment on above: Performed By: #### 2 92709 ####[facility],[address] [place], [place] [address] GFR/1.73 sq M.predicted among non-blacks MDRD (S/P/Bld) [Vol rate/Area] mL/min/{1.73_m2} Normal 60 - 999 [facility] Comment on above: Performed By: #### 2 93368 ####[place] [id number] Result Comment: ACCO RDING TO THE NATIONAL KIDNEY DISEASE EDUCATION PROGRAM(NKDE), A NORMAL eGFRIS A VALUE GREATER THAN OR EQUAL TO 60 ML/MIN/1.73 SQ METERS.CHRONIC KIDNEY DISEASE: <60mL/MIN/1.73 SQ METERSKIDNEY FAILURE: <15mL/MIN/1.73 SQ METERSTHIS TEST SHOULD ONLY BE USED FOR PATIENTS 18 YEARS OF AGE AND OLDER. Globulin (S) [Mass/Vol] 2.8 g/dL Normal 1.5 - 3.8 [facility] Comment on above: Performed By: #### 2 83478 ####[address] [address] Glucose [Mass/Vol] 82 mg/dL Normal 74 - 106 [facility] Comment on above: Performed By: #### 2 51058 ####[address] [address] Potassium [Moles/Vol] 3.9 mmol/L Normal 3.5 - 5.1 [facility] Comment on above: Performed By: #### 2 27735 ####[facility],[address] [place] [address] Protein [Mass/Vol] 5.7 g/dL Low 6.4 - 8.2 [facility] Comment on above: Performed By: #### 2 13368 ####[facility],[address] [place] [address] Sodium [Moles/Vol] 139 mmol/L Normal 136 - 145 [facility] Comment on above: Performed By: #### 2 75774 ####[facility],[address] [place] [address] Urea nitrogen [Mass/Vol] 7 mg/dL Normal 7 - 18 [facility] Comment on above: Performed By: #### 2 81038 ####[facility],[address] [place] [address] AGE 34 years Normal [facility] Comment on above: Performed By: #### 2 76191 ####[facility],[address] [place] [address] Albumin [Mass/Vol] 3.4 g/dL Normal 3.4 - 5.0 [facility] Comment on above: Performed By: #### 2 55121 ####[facility],[address] [place], [place] [phone] Albumin/Globulin [Mass ratio] 1.0 {ratio} Normal 0.9 - 1.6 [facility] Comment on above: Performed By: #### 2 10410 ####[facility],[address] [place] [address] ALK PHOS 74 U/L Normal 46 - 116 [facility] Comment on above: Performed By: #### 2 95299 ####[facility],[address] [place] [address] ALT [Catalytic activity/Vol] 20 U/L Normal 16 - 63 [facility] Comment on above: Performed By: #### 2 40843 ####[facility],[address] [place] [address] Anion gap [Moles/Vol] 15 mmol/L Normal 10 - 20 [facility] Comment on above: Performed By: #### 2 44110 ####[facility],[address] [place] [address] AST [Catalytic activity/Vol] 11 U/L Low 13 - 39 [facility] Comment on above: Performed By: #### 2 67945 ####[facility],[address] [place] [address] B/C RATIO 7 ratio Normal 0 - 30 [facility] Comment on above: Performed By: #### 2 52060 ####[facility],[address] [place] [address] Bilirubin [Mass/Vol] 0.5 mg/dL Normal 0.2 - 1.0 [facility] Comment on above: Performed By: #### 2 40362 ####[facility],[address] [place] [address] Calcium [Mass/Vol] 8.8 mg/dL Normal 8.5 - 10.1 [facility] Comment on above: Performed By: #### 2 75179 ####[facility],[address] [place] [address] Chloride [Moles/Vol] 103 mmol/L Normal 98 - 107 [facility] Comment on above: Performed By: #### 2 35438 ####[facility],[address] [place] [address] CMP with eGFR Normal [facility] Comment on above: Result Comment: COMP REHENSIVE METABOLIC PANEL Performed By: #### 2 57013 ####[facility],[address] [place], [place] [address] CO2 [Moles/Vol] 25.4 mmol/L Normal 21.0 - 32.0 [facility] Comment on above: Performed By: #### 2 48680 ####[facility],[address] [place] [address] Creatinine [Mass/Vol] 0.99 mg/dL Normal 0.55 - 1.02 [facility] Comment on above: Performed By: #### 2 26011 ####[facility],[address] [place] [address] GFR/1.73 sq M.predicted among non-blacks MDRD (S/P/Bld) [Vol rate/Area] mL/min/{1.73_m2} Normal 60 - 999 [facility] Comment on above: Performed By: #### 2 91404 ####[facility],[address] [place] [address] Result Comment: ACCO RDING TO THE NATIONAL KIDNEY DISEASE EDUCATION PROGRAM(NKDE), A NORMAL eGFRIS A VALUE GREATER THAN OR EQUAL TO 60 ML/MIN/1.73 SQ METERS.CHRONIC KIDNEY DISEASE: <60mL/MIN/1.73 SQ METERSKIDNEY FAILURE: <15mL/MIN/1.73 SQ METERSTHIS TEST SHOULD ONLY BE USED FOR PATIENTS 18 YEARS OF AGE AND OLDER. Globulin (S) [Mass/Vol] 3.3 g/dL Normal 1.5 - 3.8 [facility] Comment on above: Performed By: #### 2 10287 ####[facility],[address] [place] [address] Glucose [Mass/Vol] 109 mg/dL High 74 - 106 [facility] Comment on above: Performed By: #### 2 43407 ####[facility],[address] [place] [address] Potassium [Moles/Vol] 3.3 mmol/L Low 3.5 - 5.1 [facility] Comment on above: Performed By: #### 2 47795 ####[facility],[address] [place] [address] Protein [Mass/Vol] 6.7 g/dL Normal 6.4 - 8.2 [facility] Comment on above: Performed By: #### 2 68294 ####[facility],[address] [place] [address] Sodium [Moles/Vol] 140 mmol/L Normal 136 - 145 [facility] Comment on above: Performed By: #### 2 52249 ####[facility],[address] [place] [address] Urea nitrogen [Mass/Vol] 7 mg/dL Normal 7 - 18 [facility] Comment on above: Performed By: #### 2 87473 ####[facility],[address] [place] [address] ABDOMEN/PELVIS Won 2024 CT ABDOMEN/PELVIS W Normal [facility] CT ABDOMEN/PELVIS W/O CONTRA STon 05-03-2025 CT ABDOMEN/PELVIS W/O CONTRAST Normal [facility] ED MED ADMINISTRATION DETAIL on 05-03-2025 ED MED ADMINISTRATION DETAIL Normal [facility] ED NURSES CLINICAL NOTEon ED NURSES CLINICAL NOTE Normal [facility] ED ORDER SHEET (CPOE ONLY)on 05-03-2025 ED ORDER SHEET (CPOE ONLY) Normal [facility] ED PHYSICIAN CLINICAL REPORT on 05-03-2025 ED PHYSICIAN CLINICAL REPORT Normal [facility] ED SUPER BILLon 05-03-2025 ED SUPER BILL Normal [facility] ED VISIT SUMMARYon ED VISIT SUMMARY Normal [facility] ED VITALS FLOW SHEETon 05-03 ED VITALS FLOW SHEET Normal [facility] LABORATORYOrdered By: Madyson Magallanes on 05-03-2025 Appearance [...] 62 U/L Normal 38 - 126 U/L ADM SS ALT No additional P-5'-P [Catalytic activity/Vol] 10 U/L Normal 10 - 49 U/L AH ADM SS AST [Catalytic activity/Vol] 22 U/L Normal 8 - 34 U/L AH ADM SS Basophils (Bld) [#/Vol] 0.0 103/mcL Normal 0.0 - 0.3 10^3/mcL Workflow SS Basophils/100 WBC (Bld) 0.5 % Normal 0.0 - 2.5 % Workflow SS Bilirubin [Mass/Vol] 0.20 mg/dL Normal 0.20 - 1.20 mg/dL ADM [...] above: Interpretive Data: T esting performed on Cortexica analyzer using enzymatic creatinine methodology. Electrolyte Balance [...] 2.4 G/dL Low 2.5 - 4.2 G/dL AH ADM SS Glucose [Mass/Vol] 85 mg/dL Normal 70 - 110 mg/dL AH ADM SS Hematocrit (Bld) [Volume fraction] 36.4 % Normal 34.0 - 46.0 % AH Workflow SS Hemoglobin (Bld) [Mass/Vol] 12.3 G/dL [...] Lactic Acid Lvl 0.7 mmol/L Normal 0.5-2.2 [facility] Comment on above: Performed By: #### C BC, LAC, ADIFF, MDW, GFR, ANEU, CMP ####[facility] [place] [address] LACTATEon 05-03-2025 Lactate [Moles/Vol] 0.6 mmol/L Normal 0.4 - 2.0 [facility] Comment on above: Performed By: #### 2 75415 ####[facility],[address] [place] [address] LIPASEon 05-03-2025 Lipase [Catalytic activity/Vol] 104.0 U/L High 15.0 - 78.0 [facility] Comment on above: Result Comment: *PLE ASE NOTE THAT RANGES FOR LIPASE HAVE CHANGED OF 10/31/23 DUE TO AN ASSAYUPDATE BY THE PURCHASING DEPARTMENT CLERK.THE NEW ASSAY RANGE IS 6-250 U/L, WITH A REFERENCERANGE OF 16-77 U/L. Performed By: #### 2 11825 ####[facility],[address] [place], [place] [address] No Panel Informationon 05-03 Culture Urine Specimen received in lab. [facility] Work Phone: Microscopic examination of blood, culture Culture has been received in lab and is no growth to date. Routine cultures are held for 5 days. [facility] Work Phone: Microscopic examination of blood, culture Culture has been received in lab and is no growth to date. Routine cultures are held for 5 days. [facility] Work Phone: URINEon 05-03-2025 Beta HCG ( test) Ql (U) Negative Normal NEGATIVE [facility] Comment on above: Performed By: #### 2 75874 ####[facility],[address] [place] [address] EXTERNAL QC DONE? YES Normal [facility] Comment on above: Result Comment: Very dilute urine specimens, as indicated by a low specific gravity, may notcontain brewery representative levels of hCG. If is still suspected, a firstmorning urine specimen should be collected 48 hours later and tested. Performed By: #### 2 92082 ####[facility],[address] [place] [address] INTERNAL QC PASS Normal [facility] Comment on above: Performed By: #### 2 13518 ####[facility],[address] [place] [address] UAon 05-03-2025 Color (U) Yellow Normal [facility] Comment on above: Order Comment: from nephrostomy tube Performed By: #### U A, UAMIC ####[place] [address] Glucose (U) [Mass/Vol] Negative Normal Negative [facility] Comment on above: Order Comment: from nephrostomy tube Performed By: #### U A, UAMIC ####[place] [address] Ketones Ql (U) Negative Normal Neg-Trace [facility] Comment on above: Order Comment: from nephrostomy tube Performed By: #### U A, UAMIC ####[facility] [place] [address] UA Appear Cloudy Abnormal Clear [facility] Comment on above: Order Comment: from nephrostomy tube Performed By: #### U A, UAMIC ####[facility] [place] [address] UA Blood Small Abnormal Neg-Trace [facility] Comment on above: Order Comment: from nephrostomy tube Performed By: #### U A, UAMIC ####[facility] [place] [address] UA Leuk Est Moderate Abnormal Negative [facility] Comment on above: Order Comment: from nephrostomy tube Performed By: #### U A, UAMIC ####[place] [address] UA Nitrite Negative Normal Negative [facility] Comment on above: Order Comment: from nephrostomy tube Performed By: #### U A, UAMIC ####[place] [address] UA pH 8.5 Abnormal 5.0 - 8.0 [facility] Comment on above: Order Comment: from nephrostomy tube Performed By: #### U A, UAMIC ####[place] [address] UA Protein 100 mg/dL Abnormal Negative [facility] Comment on above: Order Comment: from nephrostomy tube Performed By: #### U A, UAMIC ####[place] [address] UA Spec Grav >=1.030 Abnormal 1.006-1.029 [facility] Comment on above: Order Comment: from nephrostomy tube Performed By: #### U A, UAMIC ####[place] [address] UA Specimen Type Not Given [facility] Comment on above: Order Comment: from nephrostomy tube Performed By: #### U A, UAMIC ####[place] [address] UA Urobilinogen 0.2 E.U./dL Normal 0.2-1.0 [facility] Comment on above: Order Comment: from nephrostomy tube Performed By: #### U A, UAMIC ####[place] [address] Urobilinogen (U) [Mass/Vol] Negative Normal Neg-Trace [facility] Comment on above: Order Comment: from nephrostomy tube Performed By: #### U A, UAMIC ####[place] [address] Color (U) Yellow Normal [facility] Comment on above: Performed By: #### U A ####[place] [address] Glucose (U) [Mass/Vol] Negative Normal Negative [facility] Comment on above: Performed By: #### U A ####[facility] [place] [address] Ketones Ql (U) Negative Normal Neg-Trace [facility] Comment on above: Performed By: #### U A ####[place] [address] UA Appear Clear Normal Clear [facility] Comment on above: Performed By: #### U A ####[place] [address] UA Blood Negative Normal Neg-Trace [facility] Comment on above: Performed By: #### U A ####[place] [address] UA Leuk Est Negative Normal Negative [facility] Comment on above: Performed By: #### U A ####[place] [address] UA Nitrite Negative Normal Negative [facility] Comment on above: Performed By: #### U A ####[place] [address] UA pH 6.5 Normal 5.0 - 8.0 [facility] Comment on above: Performed By: #### U A ####[place] [address] UA Protein Trace Normal Negative [facility] Comment on above: Performed By: #### U A ####[place] [address] UA Spec Grav >=1.030 Abnormal 1.006-1.029 [facility] Comment on above: Performed By: #### U A ####[place] [address] UA Specimen Type Clean Catch Normal [facility] Comment on above: Performed By: #### U A ####[place] [address] UA Urobilinogen 0.2 E.U./dL Normal 0.2-1.0 [facility] Comment on above: Performed By: #### U A ####[place] [address] Urobilinogen (U) [Mass/Vol] Negative Normal Neg-Trace [facility] Comment on above: Performed By: #### U A ####[place] [address] UAMICon 05-03-2025 UA Amorphus 2+ /hpf Normal [facility] Comment on above: Performed By: #### U A, UAMIC ####[place] [address] UA Bacteria 3+ /hpf Abnormal Negative [facility] Comment on above: Performed By: #### U A, UAMIC ####[place] [address] UA RBC 3-5 Abnormal 0-2 [facility] Comment on above: Performed By: #### U A, UAMIC ####[place] [address] UA Squam Epithelial 0-2 Normal 0-20 [facility] Comment on above: Performed By: #### U A, UAMIC ####[place] [address] UA WBC 25-50 Abnormal 0-5 [facility] Comment on above: Performed By: #### U A, UAMIC ####[place] [address] URINALYSISon 05-03-2025 Amorphous 2+ Normal [facility] Comment on above: Performed By: #### 2 82723 ####[facility],[address] [place] [address] Bacteria 2+ Normal [facility] Comment on above: Performed By: #### 2 01010 ####[facility],[address] [place] [address] Bilirubin Ql (U) Negative Normal NORMAL: NEGATIVE [facility] Comment on above: Performed By: #### 2 62442 ####[facility],[address] [place] [address] 57367 Casts NONE Normal [facility] Comment on above: Performed By: #### 2 66240 ####[facility],[address] [place] [address] 67977 Clarity (U) SL. CLOUDY Abnormal NORMAL: CLEAR [facility] Comment on above: Performed By: #### 2 69590 ####[facility],[address] [place] [address] 59385 Color (U) YELLOW Normal NORMAL: YELLOW [facility] Comment on above: Performed By: #### 2 46833 ####[facility],[address] [place] [address] 98827 Crystals LM Nom (Urine sed) NONE Normal [facility] Comment on above: Performed By: #### 2 50638 ####[facility],[address] [place], [place] [id number] Epi Cells NONE Normal [facility] Comment on above: Performed By: #### 2 74352 ####[facility],[address] [place] [address] 64978 Glucose Ql (U) NORM Normal NORMAL: NORMAL [facility] Comment on above: Performed By: #### 2 67714 ####[facility],[address] [place] [address] 90609 Hemoglobin Ql (U) 150 Abnormal NORMAL: NEGATIVE [facility] Comment on above: Performed By: #### 2 12089 ####[facility],[address] [place] [address] 80030 Ketone Negative Normal NORMAL: NEGATIVE [facility] Comment on above: Performed By: #### 2 32786 ####[facility],[address] [place] [address]146 Leukocytes 500 Abnormal NORMAL: NEGATIVE [facility] Comment on above: Performed By: #### 2 81155 ####[facility],[address] [place] [address] 21534 Mucous NONE Normal [facility] Comment on above: Performed By: #### 2 08947 ####[facility],[address] [place] [address] 08035 Nitrite Ql (U) Negative Normal NORMAL: NEGATIVE [facility] Comment on above: Performed By: #### 2 24284 ####[facility],[address] [place] [address] 35946 pH (U) 7.0 [pH] Normal NORMAL: 5.0-8.0 [facility] Comment on above: Performed By: #### 2 63348 ####[facility],[address] [place] [address] 78201 Protein Ql (U) 30 Abnormal NORMAL: NEGATIVE [facility] Comment on above: Performed By: #### 2 30043 ####[facility],[address] [place] [address] Rbc 0-5 Normal 0-3/hpf [facility] Comment on above: Performed By: #### 2 90600 ####[facility],[address] [place] [address] 1.005 Low NORMAL: 1.010-1.030 [facility] Comment on above: Performed By: #### 2 03737 ####[facility],[address] [place] [address] Specimen Type R Normal [facility] Comment on above: Result Comment: NEPH ROSTOMY Performed By: #### 2 23139 ####[facility],[address] [place] [address] Urinalysis dipstick W Reflex Microscopic panel (U) SEE BELOW Normal [facility] Comment on above: Result Comment: MICR OSCOPIC Performed By: #### 2 21158 ####[facility],[address] [place], [place] [id number] Urobilinog NORMAL Normal NORMAL: NORMAL [facility] Comment on above: Performed By: #### 2 53361 ####[facility],[address] [place] [address] Wbc 6-10 Normal 0-5/hpf [facility] Comment on above: Performed By: #### 2 78393 ####[facility],[address] [place] [address] 77103 Yeast NONE Normal [facility] Comment on above: Performed By: #### 2 08011 ####[facility],[address] [place] [address] 10571 Bilirubin Ql (U) Negative Normal NORMAL: NEGATIVE [facility] Comment on above: Performed By: #### 2 03427 ####[facility],[address] [place] [address]15 Clarity (U) CLEAR Normal NORMAL: CLEAR [facility] Comment on above: Performed By: #### 2 72461 ####[facility],[address] [place] [address] 60696 Color (U) YELLOW Normal NORMAL: YELLOW [facility] Comment on above: Performed By: #### 2 17794 ####[facility],[address] [place] [address] 27411 Glucose Ql (U) NORM Normal NORMAL: NORMAL [facility] Comment on above: Performed By: #### 2 30034 ####[facility],[address] [place] [address] 46523 Hemoglobin Ql (U) Negative Normal NORMAL: NEGATIVE [facility] Comment on above: Performed By: #### 2 03554 ####[facility],[address] [place] [address] 14994 Ketone Negative Normal NORMAL: NEGATIVE [facility] Comment on above: Performed By: #### 2 06108 ####[facility],[address] [place] [address] 51784 Leukocytes Negative Normal NORMAL: NEGATIVE [facility] Comment on above: Performed By: #### 2 94664 ####[facility],[address] [place] [address] 62517 Nitrite Ql (U) Negative Normal NORMAL: NEGATIVE [facility] Comment on above: Performed By: #### 2 21970 ####[facility],[address] [place] [address] pH (U) 6.0 [pH] Normal NORMAL: 5.0-8.0 [facility] Comment on above: Performed By: #### 2 69680 ####[facility],[address] [place] [address] Protein Ql (U) Negative Normal NORMAL: NEGATIVE [facility] Comment on above: Performed By: #### 2 52554 ####[facility],[address] [place] [address] 1.010 Normal NORMAL: 1.010-1.030 [facility] Comment on above: Performed By: #### 2 09745 ####[facility],[address] [place] [address] Specimen Type R Normal [facility] Comment on above: Result Comment: BLAD JULITO Performed By: #### 2 89840 ####[facility],[address] [place] [address] Urinalysis dipstick W Reflex Microscopic panel (U) NOT INDICATED Normal [facility] Comment on above: Performed By: #### 2 57587 ####[facility],[address] [place] [address] Urobilinog NORMAL Normal NORMAL: NORMAL [facility] Comment on above: Performed By: #### 2 06227 ####[facility],[address] [place] [address] ED MED ADMINISTRATION DETAIL on 04-30-2025 ED MED ADMINISTRATION DETAIL Normal [facility] ED NURSES CLINICAL NOTEon ED NURSES CLINICAL NOTE Normal [facility] ED ORDER SHEET (CPOE ONLY)on 04-30-2025 ED ORDER SHEET (CPOE ONLY) Normal [facility] ED SUPER BILLon 04-30-2025 ED SUPER BILL Normal [facility] ED VISIT SUMMARYon ED VISIT SUMMARY Normal [facility] ED VITALS FLOW SHEETon 04-30 ED VITALS FLOW SHEET Normal [facility] Absolute lymphocyte countOrd ered By: Jatin Garcia on 04-09-2025 Lymphocytes Auto (Unsp spec) [#/Vol] 2.78 10*3/uL 0.83-4.51 [facility] Absolute neutrophil countOrd ered By: Jatin Garcia on 04-09-2025 Neutrophils (Bld) [#/Vol] 4.7 10*3/uL 2.0-7.7 [facility] Anion gap in Serum or Plasma Ordered By: Jatin Garcia on 04-09-2025 Anion gap [Moles/Vol] 14 mmol/L 5-15 [facility] Automated lymphocyte count a s percentage of total leukocytesOrdered By: Jatin Garcia on 04-09-2025 Lymphocytes/100 WBC Auto (Unsp spec) 32.0 % -41 [facility] BUN/creatinine ratioOrdered By: Jatin Garcia on 04-09-2025 Urea nitrogen/Creatinine [Mass ratio] 9.0 mg/mg Low 10-20 [facility] Basic Metabolic Profile (BMP )on 04-09-2025 BUN/CRE 9.0 RATIO Low 10-20 [facility] Comment on above: Performed By: #### L 500.2500, L100.0100 #### [facility] [address] [place], [address] Calcium [Mass/Vol] 9.1 mg/dL Normal 7.6-11.0 [facility] Comment on above: Performed By: #### L 500.2500, L100.0100 #### [facility] [address] [place], [address] Chloride [Moles/Vol] 106 mmol/L Normal 98-108 [facility] Comment on above: Performed By: #### L 500.2500, L100.0100 #### [facility] [address] [place], [address] CO2 [Moles/Vol] 19.8 mmol/L Low 21.0-32.0 [facility] Comment on above: Performed By: #### L 500.2500, L100.0100 #### [facility] [address] [place], [address] Creatinine [Mass/Vol] 0.96 mg/dL Normal 0.70-1.20 [facility] Comment on above: Performed By: #### L 500.2500, L100.0100 #### [facility] [address] [place], [address] ECRCL 72.90 ml/min Normal 50-250 [facility] Comment on above: Performed By: #### L 500.2500, L100.0100 #### [facility] [address] [place], [address] GAP 14 Normal 5-15 [facility] Comment on above: Performed By: #### L 500.2500, L100.0100 #### [facility] [address] [place], [address] GFR/1.73 sq M.predicted among non-blacks MDRD (S/P/Bld) [Vol rate/Area] 79 mL/min/{1.73_m2} Normal >60 [facility] Comment on above: Result Comment: mL/m in/1.73m2 CKD-EPI Creatinine Equation (2020) Performed By: #### L 500.2500, L100.0100 #### [facility] [address] [place], [address] Glucose [Mass/Vol] 120 mg/dL High 70-99 [facility] Comment on above: Performed By: #### L 500.2500, L100.0100 #### [facility] [address] [place], [address] Potassium [Moles/Vol] 3.4 mmol/L Normal 3.3-5.1 [facility] Comment on above: Performed By: #### L 500.2500, L100.0100 #### [facility] [address] [place], [address] Sodium [Moles/Vol] 140 mmol/L Normal 133-145 [facility] Comment on above: Performed By: #### L 500.2500, L100.0100 #### [facility] [address] [place], [address] Urea nitrogen [Mass/Vol] 9 mg/dL Normal 4-19 [facility] Comment on above: Performed By: #### L 500.2500, L100.0100 #### [facility] [address] [place], [address] Basophil percentageOrdered B y: Jatin Garcia on 04-09-2025 Basophils/100 WBC (Bld) 1.0 % 0-1 [facility] Bilirubin Test strip Ql (U)O rdered By: Jatin Garcia on 04-09-2025 Bilirubin Ql (U) Negative Negative [facility] CBC W/Diff, Automatedon 06- Absolute Lymph 2.78 X10 3/uL Normal 0.83-4.51 [facility] Comment on above: Performed By: #### L 500.2500, L100.0100 #### [facility] [address] [place], [address] Absolute Neut 4.7 X10 3/uL Normal 2.0-7.7 [facility] Comment on above: Performed By: #### L 500.2500, L100.0100 #### [facility] [address] [place], [address] Basophils/100 WBC (Bld) 1.0 % Normal 0-1 [facility] Comment on above: Performed By: #### L 500.2500, L100.0100 #### [facility] [address] [place], [address] Eosinophils/100 WBC (Bld) 3.2 % Normal 0-5 [facility] Comment on above: Performed By: #### L 500.2500, L100.0100 #### [facility] [address] [place], [address] Erythrocyte distribution width (RBC) [Ratio] 14.6 % Normal 11.6-14.6 [facility] Comment on above: Performed By: #### L 500.2500, L100.0100 #### [facility] [address] [place], [address] Hematocrit (Bld) [Volume fraction] 36.4 % Low 37-47 [facility] Comment on above: Performed By: #### L 500.2500, L100.0100 #### [facility] [address] [place], [address] Hemoglobin (Bld) [Mass/Vol] 12.3 g/dL Normal 12.0-15.0 [facility] Comment on above: Performed By: #### L 500.2500, L100.0100 #### [facility] [address] [place], [address] IG% 0.300 Normal 0.0-0.9 [facility] Comment on above: Result Comment: IG% - Immature Granulocytes (promyelocytes, myelocytes and metamyelocytes) > 1% indicates that a LEFT SHIFT is Present. Performed By: #### L 500.2500, L100.0100 #### [facility] [address] [place], [address] Lymphocytes/100 WBC (Bld) 32.0 % Normal 19-41 [facility] Comment on above: Performed By: #### L 500.2500, L100.0100 #### [facility] [address] [place], [address] MCH (RBC) [Entitic mass] 32.3 pg High 27.0-32.0 [facility] Comment on above: Performed By: #### L 500.2500, L100.0100 #### [facility] [address] [place], [address] MCHC (RBC) [Mass/Vol] 33.8 g/dL Normal 32-36 [facility] Comment on above: Performed By: #### L 500.2500, L100.0100 #### [facility] [address] [place], [address] MCV (RBC) [Entitic vol] 95.5 fL Normal 81-99 [facility] Comment on above: Performed By: #### L 500.2500, L100.0100 #### [facility] [address] [place], [address] Monocytes/100 WBC (Bld) 8.9 % Normal 0-10 [facility] Comment on above: Performed By: #### L 500.2500, L100.0100 #### [facility] [address] [place], [address] Neutrophils/100 WBC (Bld) 54.6 % Normal 47-70 [facility] Comment on above: Performed By: #### L 500.2500, L100.0100 #### [facility] [address] [place], [address] Nucleated RBC (Bld) [#/Vol] 0 10*3/uL Normal 0-5 [facility] Comment on above: Performed By: #### L 500.2500, L100.0100 #### [facility] [address] [place], [address] Platelet mean volume (Bld) [Entitic vol] 9.4 fL Normal 6.2-12.0 [facility] Comment on above: Performed By: #### L 500.2500, L100.0100 #### [facility] [address] [place], [address] Platelets (Bld) [#/Vol] 297 10*3/uL Normal 150-450 [facility] Comment on above: Performed By: #### L 500.2500, L100.0100 #### [facility] [address] [place], [address] RBC (Bld) [#/Vol] 3.81 10*6/uL Low 4.2-5.4 [facility] Comment on above: Performed By: #### L 500.2500, L100.0100 #### [facility] [address] [place], [address] RDW SD 51.2 fl High 35.1-43.9 [facility] Comment on above: Performed By: #### L 500.2500, L100.0100 #### [facility] [address] [place], [address] WBC (Bld) [#/Vol] 8.7 10*3/uL Normal 4.4-11.0 [facility] Comment on above: Performed By: #### L 500.2500, L100.0100 #### [facility] [address] [place], [address] Carbon dioxide, total [Moles /volume] in Central venous bloodOrdered By: Jatin Garcia on 04-09-2025 CO2 [Moles/Vol] 19.8 mmol/L Low 21.0-32.0 [facility] Chloride assayOrdered By: Sammy Garcia on 04-09-2025 Chloride [Moles/Vol] 106 mmol/L 98-108 [facility] Emergency Department Summary on 04-09-[address] [facility] Medical Records Department [address] [place] [address] Emergency Department Summary 04/09/25 MR#: [id number] Acct: [id number] Name: LALY NAVAS Rep #: [id number] : 1990 34 From: Jatin Garcia MD [...] has been doing but the pain is [id number] and she is feeling very nauseated and does not want to waste her pain management prescription by vomiting it up. She denies any fevers or chills. No dysuria or hematuria. She has been on antibiotics for several weeks, currently on Bactrim, and states that she was admitted to [place] where her oncologist and urologist are, she [...] has known about those issues for years. [facility] Medical History Nephrostomy present Kidney failure [...] throughout Psych (more content not included)... Normal [facility] Eosinophil percentageOrdered By: Jatin Garcia on 04-09-2025 Eosinophils/100 WBC (Bld) 3.2 % 0-5 [facility] Erythrocyte distribution wid th ratioOrdered By: Jatin Garcia on 04-09-2025 Erythrocyte distribution width (RBC) [Ratio] 14.6 % 11.6-14.6 [facility] Erythrocyte distribution wid th standard deviationOrdered By: Jatin Garcia on 04-09-2025 Erythrocyte distribution width (RBC) [Ratio] 51.2 fl High 35.1-43.9 [facility] Glomerular filtration rate ( GFR) estimation/1.73 sq m using serum, plasma, or whole bOrdered By: Jatin Garcia on 04-09-2025 GFR/1.73 sq M.predicted among non-blacks MDRD (S/P/Bld) [Vol rate/Area] 79 mL/min/{1.73_m2} >60 [facility] Comment on above: mL/min/1.73m2 CKD-EP I Creatinine Equation (2020) Hematocrit Auto (Bld) [Volum e fraction]Ordered By: Jatin Garcia on 04-09-2025 Hematocrit (Bld) [Volume fraction] 36.4 % Low 37-47 [facility] Hemoglobin measurementOrdere d By: Jatin Garcia on 04-09-2025 Hemoglobin (Bld) [Mass/Vol] 12.3 g/dL 12.0-15.0 [facility] Immature granulocytes/100 WB C Auto (Bld)Ordered By: Jatin Garcia 04-09-2025 Immature granulocytes/100 WBC (Bld) 0.300 % 0.0-0.9 [facility] Comment on above: IG% - Immature Granu locytes (promyelocytes, myelocytes and metamyelocytes) > 1% indicates that a LEFT SHIFT is Present. Ketones Test strip Ql (U)Ord ered By: Jatin Garcia on 04-09-2025 Ketones Ql (U) Negative Negative [facility] MCV (mean corpuscular volume ) determinationOrdered By: Jatin Garcia on 04-09-2025 MCV (RBC) [Entitic vol] 95.5 fL 81-99 [facility] Mean corpuscular hemoglobin (MCH) determinationOrdered By: Jatin Garcia 04-09-2025 MCH (RBC) [Entitic mass] 32.3 pg High 27.0-32.0 [facility] Mean corpuscular hemoglobin concentration (MCHC) determinationOrdered By: Jatin Garcia on 04-09-2025 MCHC (RBC) [Mass/Vol] 33.8 g/dL 32-36 [facility] Mean platelet volume determi nationOrdered By: Jatin Garcia on 04-09-2025 Platelet mean volume (Bld) [Entitic vol] 9.4 fL 6.2-12.0 [facility] Microscopic analysis of urin e for red blood cells (RBC)Ordered By: Jatin Garcia on 04-09-2025 Microscopic analysis of urine for red blood cells (RBC) 0 SEEN /hpf 0-5 [facility] Monocyte percentageOrdered B y: Jatin Garcia on 04-09-2025 Monocytes/100 WBC (Bld) 8.9 % 0-10 [facility] Mucus LM Ql (Urine sed)Order ed By: Jatin Garcia on 04-09-2025 Mucus Ql (Urine sed) 0 SEEN /hpf [facility] Neutrophil percentageOrdered By: Jatin Garcia on 04-09-2025 Neutrophils/100 WBC (Bld) 54.6 % 47-70 [facility] Nitrite Test strip Ql (U)Ord ered By: Jatin Garcia on 04-09-2025 Nitrite Ql (U) Negative Negative [facility] Nucleated red blood cell per centageOrdered By: Jatin Garcia on 04-09-2025 Nucleated RBC/100 WBC (Bld) [Ratio] 0 % 0-5 [facility] Platelet countOrdered By: Sammy Garcia on 04-09-2025 Platelets (Bld) [#/Vol] 297 10*3/uL 150-450 [facility] Potassium measurement (mass/ volume)Ordered By: Jatin Garcia on 04-09-2025 Potassium (Unsp spec) [Mass/Vol] 3.4 mmol/L 3.3-5.1 [facility] Protein Test strip Ql (U)Ord ered By: Jatin Garcia on 04-09-2025 Protein Ql (U) Negative Negative [facility] RBC Auto (Bld) [#/Vol]Ordere d By: Jatin Garcia on 04-09-2025 RBC (Bld) [#/Vol] 3.81 10*6/uL Low 4.2-5.4 [facility] Serum creatinine measurement (mass/volume)Ordered By: Jatin Garcia on 04-09-2025 Creatinine [Mass/Vol] 0.96 mg/dL 0.70-1.20 [facility] Serum glucose measurement (m ass/volume)Ordered By: Jatin Garcia on 04-09-2025 Glucose [Mass/Vol] 120 mg/dL High 70-99 [facility] Serum or plasma calcium zach urement (mass/volume)Ordered By: Jatin Garcia on 04-09-2025 Calcium [Mass/Vol] 9.1 mg/dL 7.6-11.0 [facility] Serum or plasma urea nitroge n measurement (mass/volume)Ordered By: Jatin Garcia on 04-09-2025 Urea nitrogen [Mass/Vol] 9 mg/dL 4-19 [facility] Sodium levelOrdered By: Gilbert Garcia on 04-09-2025 Sodium [Moles/Vol] 140 mmol/L 133-145 [facility] Squamous epithelial cells de tection in urine sediment by light microscopyOrdered By: Jatin Garcia on 04-09-2025 Epithelial cells.squamous LM Ql (Urine sed) 0-5 SEEN /hpf 5-10 [facility] Urinalysis, Completeon 04-09 EPI,SQUAMOUS 0-5 SEEN Normal -10 [facility] Comment on above: Order Comment: YOSELIN CTOR TO SPECIFY Performed By: #### L 400.0001 #### [facility] [address] [place], [place], [id number] WBC 0-5 SEEN Normal 0-5 [facility] Comment on above: Order Comment: YOSELIN CTOR TO SPECIFY Performed By: #### L 400.0001 #### [facility] [address] [place], [place], [id number] BACTERIA 0 SEEN Normal None Seen [facility] Comment on above: Order Comment: YOSELIN CTOR TO SPECIFY Performed By: #### L 400.0001 #### [facility] [address] [place], [address] Mucus Ql (Urine sed) 0 SEEN Normal [facility] Comment on above: Order Comment: YOSELIN CTOR TO SPECIFY Performed By: #### L 400.0001 #### [facility] [address] [place], [address] RBC 0 SEEN Normal 0-5 [facility] Comment on above: Order Comment: YOSELIN CTOR TO SPECIFY Performed By: #### L 400.0001 #### [facility] [address] [place], [address] Urine clarityOrdered By: Angel Garcia on 04-09-2025 Clarity (U) Clear Clear [facility] Urine color determinationOrd ered By: Jatin Garcia on 04-09-2025 Color (U) Straw Yellow [facility] Urine glucose detectionOrder ed By: Jatin Garcia on 04-09-2025 Glucose Ql (U) Normal mg/dl Normal [facility] Urine leukocyte esterase det ection by dipstickOrdered By: Jatin Garcia on 04-09-2025 Leukocyte esterase Test strip Ql (U) Negative Negative [facility] Urine pHOrdered By: Jatin Garcia on 04-09-2025 pH (U) 6.0 [pH] 5.0 - 8.0 [facility] Urine sediment bacteria coun t by microscopy (number/high power field)Ordered By: Jatin Garcia on 04-09-2025 Bacteria LM.HPF (Urine sed) [#/Area] 0 /[HPF] None Seen [facility] Urine specific gravity measu rementOrdered By: Jatin Garcia on 04-09-2025 Specific gravity (U) [Rel density] 1.010 1.002-1.030 [facility] Urine urobilinogen measureme ntOrdered By: Jatin Garcia on 04-09-2025 Urobilinogen Ql (U) Normal mg/dl Normal [facility] White blood cell (WBC) count Ordered By: Jatin Garcia on 04-09-2025 WBC (Bld) [#/Vol] 8.7 10*3/uL 4.4-11.0 [facility] White blood cell countOrdere d By: Jatin Radha on 04-09-2025 White blood cell count 0-5 SEEN /hpf 0-5 [facility] .Auto Diffon 04-07-2025 Basophil, Absolute 0.1 10 3/mcL Normal 0.0-0.3 [facility] Comment on above: Performed By: #### G FR, LAC, ADIFF, ANEU, BMP, CBC, MG ####[address] [address] Basophils/100 WBC (Bld) 1.1 % Normal 0.0-2.5 [facility] Comment on above: Performed By: #### G FR, LAC, ADIFF, ANEU, BMP, CBC, MG ####[address] [address] Eosinophil, Absolute 0.2 10 3/mcL Normal 0.0-0.[address] [facility] Comment on above: Performed By: #### G FR, LAC, ADIFF, ANEU, BMP, CBC, MG ####[address] [address] Eosinophils/100 WBC (Bld) 3.8 % Normal 0.0-6.0 [facility] Comment on above: Performed By: #### G FR, LAC, ADIFF, ANEU, BMP, CBC, MG ####[address] [address] Lymphocyte, Absolute 2.1 10 3/mcL Normal 0.9-4.[address] [facility] Comment on above: Performed By: #### G FR, LAC, ADIFF, ANEU, BMP, CBC, MG ####[address] [address] Lymphocytes/100 WBC (Bld) 32.4 % Normal 20.0-40.0 [facility] Comment on above: Performed By: #### G FR, LAC, ADIFF, ANEU, BMP, CBC, MG ####[address] [address] Monocyte, Absolute 0.6 10 3/mcL Normal 0.1-1.4 [facility] Comment on above: Performed By: #### G FR, LAC, ADIFF, ANEU, BMP, CBC, MG ####[address] [address] Monocytes/100 WBC (Bld) 8.9 % Normal 2.0-13.0 [facility] Comment on above: Performed By: #### G FR, LAC, ADIFF, ANEU, BMP, CBC, MG ####[address] [address] Neutrophils/100 WBC (Bld) 53.8 % Normal 50.0-75.0 [facility] Comment on above: Performed By: #### G FR, LAC, ADIFF, ANEU, BMP, CBC, MG ####[address] [address] .GFRon 04-07-2025 Estimated Glomerular Filtration Rate 87 ml/min/1.73sqm Normal [facility] Comment on above: Result [...] FR, LAC, ADIFF, ANEU, BMP, CBC, MG ####[address] [address] .NEUABSon 04-07-2025 Neutrophil, Absolute 3.5 10 3/mcL Normal 2.3-8.[address] [facility] Comment on above: Performed By: #### G FR, LAC, ADIFF, ANEU, BMP, CBC, MG ####[address] [address] BMPon 04-07-2025 BUN/Creatinine Ratio 10.2 ratio Normal 10.0-22.0 [facility] Comment on above: Performed By: #### G FR, LAC, ADIFF, ANEU, BMP, CBC, MG ####[address] [address] Calcium [Mass/Vol] 9.4 mg/dL Normal 8.7-10.4 [facility] Comment on above: Performed By: #### G FR, LAC, ADIFF, ANEU, BMP, CBC, MG ####[address] [address] Chloride [Moles/Vol] 110 mmol/L Normal 98-110 [facility] Comment on above: Performed By: #### G FR, LAC, ADIFF, ANEU, BMP, CBC, MG ####[address] [address] CO2 [Moles/Vol] 27 mmol/L Normal 22-32 [facility] Comment on above: Performed By: #### G FR, LAC, ADIFF, ANEU, BMP, CBC, MG ####[place] [address] Creatinine [Mass/Vol] 0.88 mg/dL Normal 0.50-1.20 [facility] Comment on above: Result Comment: Test ing performed on Cortexica analyzer using enzymatic creatinine methodology. Performed By: #### G FR, LAC, ADIFF, ANEU, BMP, CBC, MG ####[address] [address] Electrolyte Balance 6.0 mEq/L Normal 4.0-15.0 [facility] Comment on above: Performed By: #### G FR, LAC, ADIFF, ANEU, BMP, CBC, MG ####[place] [id number] Glucose [Mass/Vol] 101 mg/dL Normal 70-110 [facility] Comment on above: Performed By: #### G FR, LAC, ADIFF, ANEU, BMP, CBC, MG ####[place] [address] Potassium [Moles/Vol] 3.6 mmol/L Normal 3.5-5.0 [facility] Comment on above: Performed By: #### G FR, LAC, ADIFF, ANEU, BMP, CBC, MG ####[place] [address] Sodium [Moles/Vol] 143 mmol/L Normal 136-145 [facility] Comment on above: Performed By: #### G FR, LAC, ADIFF, ANEU, BMP, CBC, MG ####[place] [address] Urea nitrogen [Mass/Vol] 9.0 mg/dL Normal 8.0-22.0 [facility] Comment on above: Performed By: #### G FR, LAC, ADIFF, ANEU, BMP, CBC, MG ####[place] [address] CBCon 04-07-2025 Erythrocyte distribution width (RBC) [Ratio] 15.2 % Normal 11.5-15.5 [facility] Comment on above: Performed By: #### G FR, LAC, ADIFF, ANEU, BMP, CBC, MG ####[place] [address] Hematocrit (Bld) [Volume fraction] 38.2 % Normal 34.0-46.0 [facility] Comment on above: Performed By: #### G FR, LAC, ADIFF, ANEU, BMP, CBC, MG ####[place] [address] Hgb 13.2 G/dL Normal 12.0-16.0 [facility] Comment on above: Performed By: #### G FR, LAC, ADIFF, ANEU, BMP, CBC, MG ####[place] [address] MCH (RBC) [Entitic mass] 33.2 pg High 27.0-33.0 [facility] Comment on above: Performed By: #### G FR, LAC, ADIFF, ANEU, BMP, CBC, MG ####[place] [address] MCHC 34.6 G/dL Normal 32.0-36.0 [facility] Comment on above: Performed By: #### G FR, LAC, ADIFF, ANEU, BMP, CBC, MG ####[place] [address] MCV (RBC) [Entitic vol] 95.8 fL Normal 80.0-99.0 [facility] Comment on above: Performed By: #### G FR, LAC, ADIFF, ANEU, BMP, CBC, MG ####[place] [address] Platelet 335 10 3/mcL Normal 150-450 [facility] Comment on above: Performed By: #### G FR, LAC, ADIFF, ANEU, BMP, CBC, MG ####[place] [address] Platelet mean volume (Bld) [Entitic vol] 7.4 fL Normal 6.6-10.5 [facility] Comment on above: Performed By: #### G FR, LAC, ADIFF, ANEU, BMP, CBC, MG ####[place] [address] RBC 3.99 10 6/mcL Low 4.10-5.30 [facility] Comment on above: Performed By: #### G FR, LAC, ADIFF, ANEU, BMP, CBC, MG ####[place] [address] WBC 6.4 10 3/mcL Normal 4.5-10.8 [facility] Comment on above: Performed By: #### G FR, LAC, ADIFF, ANEU, BMP, CBC, MG ####[place] [address] LABORATORYOrdered By: SYSTEM SYSTEM on 04-07-2025 Basophils (Bld) [#/Vol] 0.1 103/mcL Normal 0.0 - 0.3 10^3/mcL AH Workflow SS Basophils/100 WBC (Bld) 1.1 % Normal 0.0 - 2.5 % AH [...] above: Interpretive Data: T esting performed on Cortexica analyzer using enzymatic creatinine methodology. Electrolyte Balance [...] 38.2 % Normal 34.0 - 46.0 % Workflow SS Hemoglobin (Bld) [Mass/Vol] 13.2 G/dL Normal 12.0 - 16.0 G/dL Workflow SS Lactate [Moles/Vol] 0.5 mmol/L Normal 0.5 - 2. 2 mmol/L ADM SS Lymphocytes (Bld) [#/Vol] 2.1 103/mcL Normal 0.9 - 4.3 10^3/mcL AH Workflow SS Lymphocytes/100 WBC (Bld) 32.4 % Normal 20.0 - 40.0 % Workflow SS Magnesium [Mass/Vol] 2.1 mg/dL Normal 1.6 - 2 .4 mg/dL AH ADM SS MCH (RBC) [Entitic mass] 33.2 [...] Lactic Acid Lvl 0.5 mmol/L Normal 0.5-2.2 [facility] Comment on above: Performed By: #### G FR, LAC, ADIFF, ANEU, BMP, CBC, MG ####[place] [address] MGon 04-07-2025 Magnesium [Mass/Vol] 2.1 mg/dL Normal 1.6-2.4 [facility] Comment on above: Performed By: #### G FR, LAC, ADIFF, ANEU, BMP, CBC, MG ####[address] [address] .Auto Diffon 04-06-2025 Basophil, Absolute 0.1 10 3/mcL Normal 0.0-0.3 [facility] Comment on above: Performed By: #### A DIFF, ANEU, CBC, GFR, BMP, MDW ####[address] [address] Basophils/100 WBC (Bld) 1.3 % Normal 0.0-2.5 [facility] Comment on above: Performed By: #### A DIFF, ANEU, CBC, GFR, BMP, MDW ####[address] [address] Eosinophil, Absolute 0.1 10 3/mcL Normal 0.0-0.[address] [facility] Comment on above: Performed By: #### A DIFF, ANEU, CBC, GFR, BMP, MDW ####[address] [address] Eosinophils/100 WBC (Bld) 1.5 % Normal 0.0-6.0 [facility] Comment on above: Performed By: #### A DIFF, ANEU, CBC, GFR, BMP, MDW ####[address] [address] Lymphocyte, Absolute 2.0 10 3/mcL Normal 0.9-4.[address] [facility] Comment on above: Performed By: #### A DIFF, ANEU, CBC, GFR, BMP, MDW ####[address] [address] Lymphocytes/100 WBC (Bld) 20.5 % Normal 20.0-40.0 [facility] Comment on above: Performed By: #### A DIFF, ANEU, CBC, GFR, BMP, MDW ####[address] [address] Monocyte, Absolute 0.8 10 3/mcL Normal 0.1-1.4 [facility] Comment on above: Performed By: #### A DIFF, ANEU, CBC, GFR, BMP, MDW ####[address] [address] Monocytes/100 WBC (Bld) 7.9 % Normal 2.0-13.0 [facility] Comment on above: Performed By: #### A DIFF, ANEU, CBC, GFR, BMP, MDW ####[address] [address] Neutrophils/100 WBC (Bld) 68.8 % Normal 50.0-75.0 [facility] Comment on above: Performed By: #### A DIFF, ANEU, CBC, GFR, BMP, MDW ####[address] [address] .GFRon 04-06-2025 Estimated Glomerular Filtration Rate 80 ml/min/1.73sqm Normal [facility] Comment on above: Result [...] A DIFF, ANEU, CBC, GFR, BMP, MDW ####[address] [address] .MDWon 04-06-2025 Monocyte Distribution Width 21.04 High 0.00-20.00 [facility] Comment on above: Result Comment: For adults in ED, MDW>20.0 may be associated with a higher risk of sepsis during the first 12hrs of hospital admission Performed By: #### A DIFF, ANEU, CBC, GFR, BMP, MDW ####[address] [address] .NEUABSon 04-06-2025 Neutrophil, Absolute 6.8 10 3/mcL Normal 2.3-8.[address] [facility] Comment on above: Performed By: #### A DIFF, ANEU, CBC, GFR, BMP, W ####[place] [id number] BMPon 04-06-2025 BUN/Creatinine Ratio 10.5 ratio Normal 10.0-22.0 [facility] Comment on above: Performed By: #### A DIFF, ANEU, CBC, GFR, BMP, YOUNG ####[place] [address] Calcium [Mass/Vol] 9.6 mg/dL Normal 8.7-10.4 [facility] Comment on above: Performed By: #### A DIFF, ANEU, CBC, GFR, BMP, YOUNG ####[place] [address] Chloride [Moles/Vol] 108 mmol/L Normal 98-110 [facility] Comment on above: Performed By: #### A DIFF, ANEU, CBC, GFR, BMP, YOUNG ####[place] [address] CO2 [Moles/Vol] 28 mmol/L Normal 22-32 [facility] Comment on above: Performed By: #### A DIFF, ANEU, CBC, GFR, BMP, YOUNG ####[place] [address] Creatinine [Mass/Vol] 0.95 mg/dL Normal 0.50-1.20 [facility] Comment on above: Result Comment: Test ing performed on Cortexica analyzer using enzymatic creatinine methodology. Performed By: #### A DIFF, ANEU, CBC, GFR, BMP, W ####[place] [address] Electrolyte Balance 4.0 mEq/L Normal 4.0-15.0 [facility] Comment on above: Performed By: #### A DIFF, ANEU, CBC, GFR, BMP, W ####[place] [id number] Glucose [Mass/Vol] 84 mg/dL Normal 70-110 [facility] Comment on above: Performed By: #### A DIFF, ANEU, CBC, GFR, BMP, YOUNG ####[address] [address] Potassium [Moles/Vol] 4.4 mmol/L Normal 3.5-5.0 [facility] Comment on above: Performed By: #### A DIFF, ANEU, CBC, GFR, BMP, YOUNG ####[place] [address] Sodium [Moles/Vol] 140 mmol/L Normal 136-145 [facility] Comment on above: Performed By: #### A DIFF, ANEU, CBC, GFR, BMPYOUNG ####[place] [address] Urea nitrogen [Mass/Vol] 10.0 mg/dL Normal 8.0-22.0 [facility] Comment on above: Performed By: #### A DIFF, ANEU, CBC, GFR, BMP, YOUNG ####[place] [id number] CBCon 04-06-2025 Erythrocyte distribution width (RBC) [Ratio] 15.2 % Normal 11.5-15.5 [facility] Comment on above: Performed By: #### A DIFF, ANEU, CBC, GFR, BMP, YOUNG ####[place] [address] Hematocrit (Bld) [Volume fraction] 40.7 % Normal 34.0-46.0 [facility] Comment on above: Performed By: #### A DIFF, ANEU, CBC, GFR, BMP, YOUNG ####[place] [address] Hgb 13.7 G/dL Normal 12.0-16.0 [facility] Comment on above: Performed By: #### A DIFF, ANEU, CBC, GFR, BMP, YOUNG ####[place] [address] MCH (RBC) [Entitic mass] 32.5 pg Normal 27.0-33.0 [facility] Comment on above: Performed By: #### A DIFF, ANEU, CBC, GFR, YOUNG FREGOSO ####[place] [address] MCHC 33.8 G/dL Normal 32.0-36.0 [facility] Comment on above: Performed By: #### A DIFF, ANEU, CBC, GFR, YOUNG FREGOSO ####[place] [address] MCV (RBC) [Entitic vol] 96.3 fL Normal 80.0-99.0 [facility] Comment on above: Performed By: #### A DIFF, ANEU, CBC, GFR, YOUNG FREGOSO ####[place] [address] Platelet 329 10 3/mcL Normal 150-450 [facility] Comment on above: Performed By: #### A DIFF, ANEU, CBC, GFR, YOUNG FREGOSO ####[place] [address] Platelet mean volume (Bld) [Entitic vol] 7.5 fL Normal 6.6-10.5 [facility] Comment on above: Performed By: #### A DIFF, ANEU, CBC, GFR, YOUNG FREGOSO ####[place] [address] RBC 4.22 10 6/mcL Normal 4.10-5.30 [facility] Comment on above: Performed By: #### A DIFF, ANEU, CBC, GFR, YOUNG FREGOSO ####[place] [address] WBC 9.9 10 3/mcL Normal 4.5-10.8 [facility] Comment on above: Performed By: #### A DIFF, ANEU, CBC, GFR, YOUNG FREGOSO ####[place] [address] LABORATORYOrdered By: SYSTEM SYSTEM on 04-06-2025 Basophils [...] above: Interpretive Data: T esting performed on Cortexica analyzer using enzymatic creatinine methodology. Electrolyte Balance [...] 40.7 % Normal 34.0 - 46.0 % Workflow SS Hemoglobin (Bld) [Mass/Vol] 13.7 G/dL Normal 12.0 - 16.0 G/dL Workflow [...] (U) Clear (04/06/25 3:08 PM) Normal Clear Auto Urine SS Bilirubin Ql (U) Negative (04/06/25 3:08 PM) Normal Neg-Trace Auto Urine SS Color (U) Yellow (04/06/25 3:08 PM) Normal AH Auto Urine SS Glucose Test strip (U) [Mass/Vol] Negative Normal Negative Auto Urine SS Hemoglobin Auto test strip (U) [Mass/Vol] Negative (04/06/25 3:08 PM) Normal Neg-Trace Auto Urine SS Ketones Ql (U) Negative Normal Neg-Trace Auto Urine SS UA Leuk Est Negative (04/06/25 3:08 PM) Normal Negative Auto Urine SS UA Nitrite Negative (04/06/25 3:08 PM) Normal Negative Auto Urine SS UA pH 6.5 (04/06/25 3:08 PM) Normal 5.0 - 8.0 Auto Urine SS UA Protein Negative Normal Negative Auto Urine SS UA Spec Grav <=1.005 *ABN* (04/06/25 3:08 PM) Invalid Interpretation Code 1.006-1.029 Auto Urine SS UA Specimen Type Clean Catch (04/06/25 3:08 PM) Normal Auto Urine SS UA Urobilinogen 0.2 E.U./dL Normal 0.2-1.0 Auto Urine SS UAon 04-06-2025 Color (U) Yellow Normal [facility] Comment on above: Performed By: #### U A ####[address] [address] Glucose (U) [Mass/Vol] Negative Normal Negative [facility] Comment on above: Performed By: #### U A ####[place] [id number] [place] [address] Ketones Ql (U) Negative Normal Neg-Trace [facility] Comment on above: Performed By: #### U A ####[place] [id number] [address] [place] [address] UA Appear Clear Normal Clear [facility] Comment on above: Performed By: #### U A ####[address] [address] UA Blood Negative Normal Neg-Trace [facility] Comment on above: Performed By: #### U A ####[place] [address] UA Leuk Est Negative Normal Negative [facility] Comment on above: Performed By: #### U A ####[place] [address] UA Nitrite Negative Normal Negative [facility] Comment on above: Performed By: #### U A ####[place] [address] UA pH 6.5 Normal 5.0 - 8.0 [facility] Comment on above: Performed By: #### U A ####[place] [address] UA Protein Negative Normal Negative [facility] Comment on above: Performed By: #### U A ####[place] [address] UA Spec Grav <=1.005 Abnormal 1.006-1.029 [facility] Comment on above: Performed By: #### U A ####[place] [address] UA Specimen Type Clean Catch Normal [facility] Comment on above: Performed By: #### U A ####[place] [address] UA Urobilinogen 0.2 E.U./dL Normal 0.2-1.0 [facility] Comment on above: Performed By: #### U A ####[place] [address] Urobilinogen (U) [Mass/Vol] Negative Normal Neg-Trace [facility] Comment on above: Performed By: #### U A ####[place] [address] US RENALon 04-06-2025 US RENAL Normal [facility] XR ABDOMEN APon 04-06-2025 XR ABDOMEN AP Normal [facility] .Auto Diffon 04-05-2025 Basophil, Absolute 0.1 10 3/mcL Normal 0.0-0.3 [facility] Comment on above: Performed By: #### B MP, GFR, ANEU, CBC, ADIFF ####[address] [address] Basophils/100 WBC (Bld) 1.4 % Normal 0.0-2.5 [facility] Comment on above: Performed By: #### B MP, GFR, ANEU, CBC, ADIFF ####[address] [address] Eosinophil, Absolute 0.3 10 3/mcL Normal 0.0-0.[address] [facility] Comment on above: Performed By: #### B MP, GFR, ANEU, CBC, ADIFF ####[address] [address] Eosinophils/100 WBC (Bld) 3.7 % Normal 0.0-6.0 [facility] Comment on above: Performed By: #### B MP, GFR, ANEU, CBC, ADIFF ####[address] [address] Lymphocyte, Absolute 2.2 10 3/mcL Normal 0.9-4.[address] [facility] Comment on above: Performed By: #### B MP, GFR, ANEU, CBC, ADIFF ####[address] [address] Lymphocytes/100 WBC (Bld) 31.9 % Normal 20.0-40.0 [facility] Comment on above: Performed By: #### B MP, GFR, ANEU, CBC, ADIFF ####[address] [address] Monocyte, Absolute 0.7 10 3/mcL Normal 0.1-1.4 [facility] Comment on above: Performed By: #### B MP, GFR, ANEU, CBC, ADIFF ####[address] [address] Monocytes/100 WBC (Bld) 9.8 % Normal 2.0-13.0 [facility] Comment on above: Performed By: #### B MP, GFR, ANEU, CBC, ADIFF ####[address] [address] Neutrophils/100 WBC (Bld) 53.2 % Normal 50.0-75.0 [facility] Comment on above: Performed By: #### B MP, GFR, ANEU, CBC, ADIFF ####[place] [address] .GFRon 04-05-2025 Estimated Glomerular Filtration Rate 96 ml/min/1.73sqm Normal [facility] Comment on above: Result [...] #### B MP, GFR, ANEU, CBC, ADIFF ####[place] [address] .NEUABSon 04-05-2025 Neutrophil, Absolute 3.7 10 3/mcL Normal 2.3-8.[address] [facility] Comment on above: Performed By: #### B MP, GFR, ANEU, CBC, ADIFF ####[place] [address] BMPon 04-05-2025 BUN/Creatinine Ratio 12.3 ratio Normal 10.0-22.0 [facility] Comment on above: Order Comment: Routi ne for 0501 the morning of patient admission. Performed By: #### B MP, GFR, ANEU, CBC, ADIFF ####[place] [address] Calcium [Mass/Vol] 8.9 mg/dL Normal 8.7-10.4 [facility] Comment on above: Order Comment: Routi ne for 0501 the morning of patient admission. Performed By: #### B MP, GFR, ANEU, CBC, ADIFF ####[address] [address] Chloride [Moles/Vol] 110 mmol/L Normal 98-110 [facility] Comment on above: Order Comment: Routi ne for 0501 the morning of patient admission. Performed By: #### B MP, GFR, ANEU, CBC, ADIFF ####[address] [address] CO2 [Moles/Vol] 26 mmol/L Normal 22-32 [facility] Comment on above: Order Comment: Routi ne for 0501 the morning of patient admission. Performed By: #### B MP, GFR, ANEU, CBC, ADIFF ####[place] [id number] Creatinine [Mass/Vol] 0.81 mg/dL Normal 0.50-1.20 [facility] Comment on above: Order Comment: Routi ne for 0501 the morning of patient admission. Result Comment: Test ing performed on Cortexica analyzer using enzymatic creatinine methodology. Performed By: #### B MP, GFR, ANEU, CBC, ADIFF ####[place] [address] Electrolyte Balance 5.0 mEq/L Normal 4.0-15.0 [facility] Comment on above: Order Comment: Routi ne for 0501 the morning of patient admission. Performed By: #### B MP, GFR, ANEU, CBC, ADIFF ####[place] [id number] Glucose [Mass/Vol] 84 mg/dL Normal 70-110 [facility] Comment on above: Order Comment: Routi ne for 0501 the morning of patient admission. Performed By: #### B MP, GFR, ANEU, CBC, ADIFF ####[place] [id number] Potassium [Moles/Vol] 4.2 mmol/L Normal 3.5-5.0 [facility] Comment on above: Order Comment: Routi ne for 0501 the morning of patient admission. Result Comment: Spec imen slightly hemolyzed. Performed By: #### B MP, GFR, ANEU, CBC, ADIFF ####[place] [address] Sodium [Moles/Vol] 141 mmol/L Normal 136-145 [facility] Comment on above: Order Comment: Routi ne for 0501 the morning of patient admission. Performed By: #### B MP, GFR, ANEU, CBC, ADIFF ####[place] [address] Urea nitrogen [Mass/Vol] 10.0 mg/dL Normal 8.0-22.0 [facility] Comment on above: Order Comment: Routi ne for 0501 the morning of patient admission. Performed By: #### B MP, GFR, ANEU, CBC, ADIFF ####[place] [address] CBCon 04-05-2025 Erythrocyte distribution width (RBC) [Ratio] 15.6 % High 11.5-15.5 [facility] Comment on above: Order Comment: Routi ne for 0501 the morning of patient admission. Performed By: #### B MP, GFR, ANEU, CBC, ADIFF ####[place] [address] Hematocrit (Bld) [Volume fraction] 37.4 % Normal 34.0-46.0 [facility] Comment on above: Order Comment: Routi ne for 0501 the morning of patient admission. Performed By: #### B MP, GFR, ANEU, CBC, ADIFF ####[place] [address] Hgb 12.7 G/dL Normal 12.0-16.0 [facility] Comment on above: Order Comment: Routi ne for 0501 the morning of patient admission. Performed By: #### B MP, GFR, ANEU, CBC, ADIFF ####[place] [address] MCH (RBC) [Entitic mass] 32.9 pg Normal 27.0-33.0 [facility] Comment on above: Order Comment: Routi ne for 0501 the morning of patient admission. Performed By: #### B MP, GFR, ANEU, CBC, ADIFF ####[place] [address] MCHC 34.0 G/dL Normal 32.0-36.0 [facility] Comment on above: Order Comment: Routi ne for 0501 the morning of patient admission. Performed By: #### B MP, GFR, ANEU, CBC, ADIFF ####[place] [address] MCV (RBC) [Entitic vol] 96.7 fL Normal 80.0-99.0 [facility] Comment on above: Order Comment: Routi ne for 0501 the morning of patient admission. Performed By: #### B MP, GFR, ANEU, CBC, ADIFF ####[place] [address] Platelet 369 10 3/mcL Normal 150-450 [facility] Comment on above: Order Comment: Routi ne for 0501 the morning of patient admission. Performed By: #### B MP, GFR, ANEU, CBC, ADIFF ####[place] [address] Platelet mean volume (Bld) [Entitic vol] 7.7 fL Normal 6.6-10.5 [facility] Comment on above: Order Comment: Routi ne for 0501 the morning of patient admission. Performed By: #### B MP, GFR, ANEU, CBC, ADIFF ####[place] [address] RBC 3.87 10 6/mcL Low 4.10-5.30 [facility] Comment on above: Order Comment: Routi ne for 0501 the morning of patient admission. Performed By: #### B MP, GFR, ANEU, CBC, ADIFF ####[place] [address] WBC 7.0 10 3/mcL Normal 4.5-10.8 [facility] Comment on above: Order Comment: Routi ne for 0501 the morning of patient admission. Performed By: #### B MP, GFR, ANEU, CBC, ADIFF ####[place] [address] CURon 04-05-2025 CUR [facility] MAIN LABORATORYOrdered By: SYSTEM SYSTEM [...] above: Interpretive Data: T esting performed on Cortexica analyzer using enzymatic creatinine methodology. Electrolyte Balance 5.0 mEq/L Normal 4.0 - 15 .0 mEq/L ADM SS Eosinophils (Bld) [#/Vol] 0.3 103/mcL Normal 0.0 - 0.7 10^3/mcL Workflow SS Eosinophils/100 WBC (Bld) 3.7 % Normal 0.0 - 6.0 % Workflow SS Erythrocyte distribution width (RBC) [Ratio] 15.6 % High 11.5 - 15.5 % Workflow SS Estimated Glomerular Filtration Rate 96 [...] 37.4 % Normal 34.0 - 46.0 % Workflow SS Hemoglobin (Bld) [Mass/Vol] 12.7 G/dL [...] AH ADM SS Urea nitrogen/Creatinine [Mass ratio] 12.3 ratio Normal 10.0 - 22.0 ratio AH ADM SS WBC (Bld) [#/Vol] 7.0 103/mcL Normal 4.5 - 10.8 10^3/mcL AH Workflow SS .Auto Diffon 04-04-2025 Basophil, Absolute 0.2 10 3/mcL Normal 0.0-0.3 [facility] MAIN Comment on above: Performed By: #### C BC, BMP, GFR, ANEUCHEN MDW ####[address] [address] Basophils/100 WBC (Bld) 1.4 % Normal 0.0-2.5 [facility] MAIN Comment on above: Performed By: #### C BC, BMP, GFR, ANEUCHEN MDW ####[address] [address] Eosinophil, Absolute 0.2 10 3/mcL Normal 0.0-0.[address] [facility] MAIN Comment on above: Performed By: #### C BC, BMP, GFR, ANEU, YOUNG SIDDIQUI ####[address] [address] Eosinophils/100 WBC (Bld) 1.3 % Normal 0.0-6.0 [facility] MAIN Comment on above: Performed By: #### C BC, BMP, GFR, ANEUCHEN MDW ####[address] [address] Lymphocyte, Absolute 2.3 10 3/mcL Normal 0.9-4.[address] [facility] MAIN Comment on above: Performed By: #### C BC, BMP, GFR, ANEUCHEN MDW ####[address] [address] Lymphocytes/100 WBC (Bld) 20.4 % Normal 20.0-40.0 [facility] MAIN Comment on above: Performed By: #### C BC, BMP, GFR, ANEU, YOUNG SIDDIQUI ####[address] [address] Monocyte, Absolute 1.1 10 3/mcL Normal 0.1-1.4 [facility] MAIN Comment on above: Performed By: #### C BC, BMP, GFR, ANEU, YOUNG SIDDIQUI ####[address] [address] Monocytes/100 WBC (Bld) 9.3 % Normal 2.0-13.0 [facility] MAIN Comment on above: Performed By: #### C BC, BMP, GFR, CHEN LEVI MDW ####[place] [address] Neutrophils/100 WBC (Bld) 67.6 % Normal 50.0-75.0 [facility] MAIN Comment on above: Performed By: #### C BC, BMP, GFR, CHEN LEVI MDW ####[place] [address] .GFRon 04-04-2025 Estimated Glomerular Filtration Rate 92 ml/min/1.73sqm Normal [facility] MAIN Comment on above: Result [...] C BC, BMP, GFR, CHEN LEVI MDW ####[place] [address] .MDWon 04-04-2025 Monocyte Distribution Width 18.36 Normal 0.00-20.00 [facility] MAIN Comment on above: Result Comment: For ED adult patients suspected of sepsis, MDW<=20.0 does not rule out sepsis or risk of sepsis Performed By: #### C BC, BMP, GFR, CHEN LEVI MDW ####[place] [address] .NEUABSon 04-04-2025 Neutrophil, Absolute 7.8 10 3/mcL Normal 2.3-8.[address] [facility] MAIN Comment on above: Performed By: #### C BC, BMP, GFR, CHEN LEVI MDW ####[place] [address] BMPon 04-04-2025 BUN/Creatinine Ratio 14.3 ratio Normal 10.0-22.0 [facility] MAIN Comment on above: Performed By: #### C BC, BMP, GFR, CHEN LEVI MDW ####[place] [address] Calcium [Mass/Vol] 10.2 mg/dL Normal 8.7-10.4 [facility] MAIN Comment on above: Performed By: #### C BC, BMP, GFR, CHEN LEVI MDW ####[place] [address] Chloride [Moles/Vol] 108 mmol/L Normal 98-110 [facility] MAIN Comment on above: Performed By: #### C BC, BMP, GFR, CHEN LEVI MDW ####[place] [address] CO2 [Moles/Vol] 27 mmol/L Normal 22-32 [facility] MAIN Comment on above: Performed By: #### C BC, BMP, GFR, CHEN LEVI MDW ####[place] [address] Creatinine [Mass/Vol] 0.84 mg/dL Normal 0.50-1.20 [facility] MAIN Comment on above: Result Comment: Test ing performed on Cortexica analyzer using enzymatic creatinine methodology. Performed By: #### C BC, BMP, GFR, CHEN LEVI MDW ####[place] [address] Electrolyte Balance 6.0 mEq/L Normal 4.0-15.0 [facility] MAIN Comment on above: Performed By: #### C BC, BMP, GFR, CHEN LEVI MDW ####[place] [address] Glucose [Mass/Vol] 78 mg/dL Normal 70-110 [facility] MAIN Comment on above: Performed By: #### C BC, BMP, GFR, CHEN LEVI MDW ####[address] [place] [address] Potassium [Moles/Vol] 3.8 mmol/L Normal 3.5-5.0 [facility] MAIN Comment on above: Performed By: #### C BC, BMP, GFR, CHEN LEVI MDW ####[place] [address] Sodium [Moles/Vol] 141 mmol/L Normal 136-145 [facility] MAIN Comment on above: Performed By: #### C BC, BMP, GFR, CHEN LEVI MDW ####[place] [address] Urea nitrogen [Mass/Vol] 12.0 mg/dL Normal 8.0-22.0 [facility] MAIN Comment on above: Performed By: #### C BC, BMP, GFR, CHEN LEVI MDW ####[place] [id number] CBCon 04-04-2025 Erythrocyte distribution width (RBC) [Ratio] 15.6 % High 11.5-15.5 [facility] MAIN Comment on above: Performed By: #### C BC, BMP, GFR, CHEN LEVI MDW ####[place] [address] Hematocrit (Bld) [Volume fraction] 45.3 % Normal 34.0-46.0 [facility] MAIN Comment on above: Performed By: #### C BC, BMP, GFR, CHEN LEVI MDW ####[place] [address] Hgb 15.1 G/dL Normal 12.0-16.0 [facility] MAIN Comment on above: Performed By: #### C BC, BMP, GFR, CHEN LEVI MDW ####[place] [address] MCH (RBC) [Entitic mass] 32.1 pg Normal 27.0-33.0 [facility] MAIN Comment on above: Performed By: #### C BC, BMP, GFR, CHEN LEVI MDW ####[place] [address] MCHC 33.3 G/dL Normal 32.0-36.0 [facility] MAIN Comment on above: Performed By: #### C BC, BMP, GFR, CHEN LEVI MDW ####[address] [address] MCV (RBC) [Entitic vol] 96.4 fL Normal 80.0-99.0 [facility] MAIN Comment on above: Performed By: #### C BC, BMP, GFR, CHEN LEVI MDW ####[place] [address] Platelet 381 10 3/mcL Normal 150-450 [facility] MAIN Comment on above: Performed By: #### C LARISA, BMP, GFRGURMEET ADIFF, MDW ####[place] [address] Platelet mean volume (Bld) [Entitic vol] 7.8 fL Normal 6.6-10.5 [facility] MAIN Comment on above: Performed By: #### C BC, BMP, GFR, CHEN LEVI MDW ####[place] [address] RBC 4.70 10 6/mcL Normal 4.10-5.30 [facility] MAIN Comment on above: Performed By: #### C BC, BMP, GFRGURMEET ADIFF, MDW ####[place] [id number] WBC 11.5 10 3/mcL High 4.5-10.8 [facility] MAIN Comment on above: Performed By: #### C BC, BMP, GFR, CHEN LEVI MDW ####[place] [address] CT ABDOMEN/PELVIS W/O CONTRA STon 04-04-2025 CT ABDOMEN/PELVIS W/O CONTRAST Normal [facility] MAIN LABORATORYOrdered By: Bel Wetzel on 04-04-2025 Beta HCG ( test) Ql (U) Negative (04/04/25 3:11 PM) [facility] Work Phone: Urine Preg POC Confirmation Sent to lab (04/04/25 3:11 PM) [facility] Work Phone: LABORATORYOrdered By: Jaguar Cisneros on [...] - 32 mEq/L ADM SS Creatinine [Mass/Vol] 0.84 mg/dL Normal 0.50 - 1.20 mg/dL AH ADM SS Comment on above: Interpretive Data: T esting performed on Cortexica analyzer using enzymatic creatinine methodology. Electrolyte Balance [...] Filtration Rate 92 ml/min/1.73sqm Invalid Interpretation Code AH ADM SS [...] Probable Contamination. Suggest recollection if clinically indicated. [facility] Work Phone: No Panel InformationOrdered By: Jaguar Cisneros on 04-04-2025 UA Nitrite Negative (04/04/25 2:55 PM) Normal Negative AH Auto Urine SS UA Urobilinogen 0.2 E.U./dL Normal 0.2-1.0 AH Auto Urine SS UAon 04-04-2025 Color (U) Yellow Normal [facility] MAIN Comment on above: Order Comment: To be taken from nephrostomy Performed By: #### U AMIC, UA ####[address] [address] Glucose (U) [Mass/Vol] Negative Normal Negative [facility] MAIN Comment on above: Order Comment: To be taken from nephrostomy Performed By: #### U AMIC, UA ####[place] [id number] [place] [address] Ketones Ql (U) Negative Normal Neg-Trace [facility] MAIN Comment on above: Order Comment: To be taken from nephrostomy Performed By: #### U AMIC, UA ####[place] [id number] [place] [address] UA Appear Cloudy Abnormal Clear [facility] MAIN Comment on above: Order Comment: To be taken from nephrostomy Performed By: #### U AMIC, UA ####[place] [id number] [place] [address] UA Blood Moderate Abnormal Neg-Trace [facility] MAIN Comment on above: Order Comment: To be taken from nephrostomy Performed By: #### U AMIC, UA ####[facility] [place] [address] UA Leuk Est Large Abnormal Negative [facility] MAIN Comment on above: Order Comment: To be taken from nephrostomy Performed By: #### U AMIC, UA ####[place] [address] UA Nitrite Negative Normal Negative [facility] MAIN Comment on above: Order Comment: To be taken from nephrostomy Performed By: #### U AMIC, UA ####[place] [address] UA pH >=8.5 Abnormal 5.0 - 8.0 [facility] MAIN Comment on above: Order Comment: To be taken from nephrostomy Performed By: #### U AMIC, UA ####[place] [address] UA Protein 100 mg/dL Abnormal Negative [facility] MAIN Comment on above: Order Comment: To be taken from nephrostomy Performed By: #### U AMIC, UA ####[place] [address] UA Spec Grav 1.010 Normal 1.006-1.029 [facility] MAIN Comment on above: Order Comment: To be taken from nephrostomy Performed By: #### U AMIC, UA ####[place] [address] UA Specimen Type Not Given Normal [facility] MAIN Comment on above: Order Comment: To be taken from nephrostomy Performed By: #### U AMIC, UA ####[place] [address] UA Urobilinogen 0.2 E.U./dL Normal 0.2-1.0 [facility] MAIN Comment on above: Order Comment: To be taken from nephrostomy Performed By: #### U AMIC, UA ####[place] [address] Urobilinogen (U) [Mass/Vol] Negative Normal Neg-Trace [facility] MAIN Comment on above: Order Comment: To be taken from nephrostomy Performed By: #### U AMIC, UA ####[place] [address] Color (U) Yellow Normal [facility] MAIN Comment on above: Performed By: #### U A ####[place] [address] Glucose (U) [Mass/Vol] Negative Normal Negative [facility] MAIN Comment on above: Performed By: #### U A ####[place] [address] Ketones Ql (U) Negative Normal Neg-Trace [facility] MAIN Comment on above: Performed By: #### U A ####[place] [address] UA Appear Clear Normal Clear [facility] MAIN Comment on above: Performed By: #### U A ####[place] [address] UA Blood Negative Normal Neg-Trace [facility] MAIN Comment on above: Performed By: #### U A ####[place] [address] UA Leuk Est Trace Normal Negative [facility] MAIN Comment on above: Performed By: #### U A ####[place] [address] UA Nitrite Negative Normal Negative [facility] MAIN Comment on above: Performed By: #### U A ####[place] [address] UA pH 6.5 Normal 5.0 - 8.0 [facility] MAIN Comment on above: Performed By: #### U A ####[place] [address] UA Protein Negative Normal Negative [facility] MAIN Comment on above: Performed By: #### U A ####[place] [address] UA Spec Grav 1.015 Normal 1.006-1.029 [facility] MAIN Comment on above: Performed By: #### U A ####[place] [address] UA Specimen Type Clean Catch Normal [facility] MAIN Comment on above: Performed By: #### U A ####[place] [address] UA Urobilinogen 0.2 E.U./dL Normal 0.2-1.0 [facility] MAIN Comment on above: Performed By: #### U A ####[place] [address] Urobilinogen (U) [Mass/Vol] Negative Normal Neg-Trace [facility] MAIN Comment on above: Performed By: #### U A ####[place] [address] UAMICon 04-04-2025 UA Bacteria 2+ /hpf Abnormal Negative [facility] MAIN Comment on above: Performed By: #### U AMIC, UA ####[place] [address] UA RBC 10-20 Abnormal 0-2 [facility] MAIN Comment on above: Performed By: #### U AMIC, UA ####[place] [address] UA Squam Epithelial 3-5 Normal 0-20 [facility] MAIN Comment on above: Performed By: #### U AMIC, UA ####[place] [address] UA Trip Rai Crystals 3+ /hpf Normal [facility] MAIN Comment on above: Performed By: #### U AMIC, UA ####[place] [address] UA WBC 10-20 Abnormal 0-5 [facility] MAIN Comment on above: Performed By: #### U AMIC, UA ####[place] [address] CBC + DIFFon 04-03-2025 Baso # 0.04 x10EE3/UL Normal 0.00 - 0.10 [facility] Comment on above: Performed By: #### 2 51123 ####[facility],[address] [place] [address] Basophils/100 WBC (Bld) 0.4 % Normal 0.0 - 2.0 [facility] Comment on above: Performed By: #### 2 31326 ####[facility],[address] [place] [address] CBC + DIFF Normal [facility] Comment on above: Result Comment: CBC- COMPLETE BLOOD COUNT Performed By: #### 2 58586 ####[place] [address] EO # 0.16 x10EE3/UL Normal 0.00 - 0.50 [facility] Comment on above: Performed By: #### 2 34963 ####[facility],[address] [place] [address] Eosinophils/100 WBC (Bld) 1.6 % Normal 0.0 - 7.0 [facility] Comment on above: Performed By: #### 2 98625 ####[facility],[address] [place] [address] Erythrocyte distribution width (RBC) [Ratio] 13.9 % Normal 12.0 - 15.6 [facility] Comment on above: Performed By: #### 2 37655 ####[facility],[address] [place] [address] Hematocrit (Bld) [Volume fraction] 39.2 % Normal 34.0 - 46.0 [facility] Comment on above: Performed By: #### 2 12041 ####[facility],[address] [place] [address] Hemoglobin (Bld) [Mass/Vol] 13.7 g/dL Normal 12.0 - 16.0 [facility] Comment on above: Performed By: #### 2 49974 ####[facility],[address] [place] [address] Lymph # 2.51 x10EE3/UL Normal 0.80 - 2.80 [facility] Comment on above: Performed By: #### 2 71496 ####[facility],[address] [place] [address] Lymphocytes/100 WBC (Bld) 24.6 % Normal 20.0 - 45.0 [facility] Comment on above: Performed By: #### 2 57554 ####[facility],[address] [place] [address] MANUAL DIFF N/A Normal [facility] Comment on above: Performed By: #### 2 35778 ####[facility],[address] [place] [address] MCH (RBC) [Entitic mass] 33 pg Normal 27 - 33 [facility] Comment on above: Performed By: #### 2 54772 ####[facility],[address] [place] [address] MCHC 35 X10 3 Normal 32 - 36 [facility] Comment on above: Performed By: #### 2 41459 ####[facility],[address] [place], [place] [address] MCV (RBC) [Entitic vol] 95 fL Normal 80 - 99 [facility] Comment on above: Performed By: #### 2 41746 ####[facility],[address] [place] [address] [place] # 0.91 x10EE3/UL Normal 0.20 - 1.00 [facility] Comment on above: Performed By: #### 2 82375 ####[facility],[address] [place] [address] MONOS % 8.9 % Normal 0.0 - 10.0 [facility] Comment on above: Performed By: #### 2 18064 ####[facility],[address] [place], [place] [address] Morphology Efra (Bld) [Interp] N/A Normal [facility] Comment on above: Performed By: #### 2 39777 ####[facility],[address] [place] [address] Neut # 6.59 x10EE3/UL Normal 1.50 - 7.10 [facility] Comment on above: Performed By: #### 2 29465 ####[facility],[address] [place] [address] Neutrophils/100 WBC (Bld) 64.6 % Normal 46.0 - 76.0 [facility] Comment on above: Performed By: #### 2 63595 ####[facility],[address] [place], [place] [address] PLATELET 361 x10EE3/UL Normal 150 - 450 [facility] Comment on above: Performed By: #### 2 40577 ####[facility],[address] [place] [address] Platelet mean volume (Bld) [Entitic vol] 7.1 fL Normal 6.6 - 10.5 [facility] Comment on above: Result Comment: AUTO MATED DIFFERENTIAL Performed By: #### 2 43204 ####[facility],[address] [place] [address] RBC 4.13 x 10EE6/UL Normal 4.10 - 5.30 [facility] Comment on above: Performed By: #### 2 88742 ####[facility],[address] [place] [address] WBC 10.2 x 10EE3/UL Normal 4.5 - 10.8 [facility] Comment on above: Performed By: #### 2 93293 ####[facility],[address] [place] [address] CMP with eGFRon 04-03-2025 AGE 34 years Normal [facility] Comment on above: Performed By: #### 2 33322 ####[facility],[address] [place] [address] Albumin [Mass/Vol] 3.8 g/dL Normal 3.4 - 5.0 [facility] Comment on above: Performed By: #### 2 79433 ####[facility],[address] [place] [address] Albumin/Globulin [Mass ratio] 1.1 {ratio} Normal 0.9 - 1.6 [facility] Comment on above: Performed By: #### 2 13261 ####[facility],[address] [place] [address] ALK PHOS 85 U/L Normal 46 - 116 [facility] Comment on above: Performed By: #### 2 80209 ####[facility],[address] [place] [address] ALT [Catalytic activity/Vol] 14 U/L Low 16 - 63 [facility] Comment on above: Performed By: #### 2 27997 ####[facility],[address] [place] [address] Anion gap [Moles/Vol] 13 mmol/L Normal 10 - 20 [facility] Comment on above: Performed By: #### 2 78598 ####[facility],[address] [place] [address] AST [Catalytic activity/Vol] 18 U/L Normal 13 - 39 [facility] Comment on above: Performed By: #### 2 39353 ####[facility],[address] [place] [address] B/C RATIO 14 ratio Normal 0 - 30 [facility] Comment on above: Performed By: #### 2 01241 ####[facility],[address] [place] [address] Bilirubin [Mass/Vol] 0.4 mg/dL Normal 0.2 - 1.0 [facility] Comment on above: Performed By: #### 2 87293 ####[facility],[address] [place] [address] Calcium [Mass/Vol] 9.2 mg/dL Normal 8.5 - 10.1 [facility] Comment on above: Performed By: #### 2 97960 ####[facility],[address] [place] [address] Chloride [Moles/Vol] 103 mmol/L Normal 98 - 107 [facility] Comment on above: Performed By: #### 2 19065 ####[facility],[address] [place] [address] CMP with eGFR Normal [facility] Comment on above: Result Comment: COMP REHENSIVE METABOLIC PANEL Performed By: #### 2 16993 ####[facility],[address] [place] [address] CO2 [Moles/Vol] 25.0 mmol/L Normal 21.0 - 32.0 [facility] Comment on above: Performed By: #### 2 44283 ####[facility],[address] [place] [address] Creatinine [Mass/Vol] 0.95 mg/dL Normal 0.55 - 1.02 [facility] Comment on above: Performed By: #### 2 43685 ####[facility],[address] [place] [address] GFR/1.73 sq M.predicted among non-blacks MDRD (S/P/Bld) [Vol rate/Area] mL/min/{1.73_m2} Normal 60 - 999 [facility] Comment on above: Performed By: #### 2 77102 ####[facility],[address] [place] [address] Result Comment: ACCO RDING TO THE NATIONAL KIDNEY DISEASE EDUCATION PROGRAM(NKDE), A NORMAL eGFRIS A VALUE GREATER THAN OR EQUAL TO 60 ML/MIN/1.73 SQ METERS.CHRONIC KIDNEY DISEASE: <60mL/MIN/1.73 SQ METERSKIDNEY FAILURE: <15mL/MIN/1.73 SQ METERSTHIS TEST SHOULD ONLY BE USED FOR PATIENTS 18 YEARS OF AGE AND OLDER. Globulin (S) [Mass/Vol] 3.5 g/dL Normal 1.5 - 3.8 [facility] Comment on above: Performed By: #### 2 19942 ####[facility],[address] [place] [address] Glucose [Mass/Vol] 78 mg/dL Normal 74 - 106 [facility] Comment on above: Performed By: #### 2 87876 ####[facility],[address] [place] [address] Potassium [Moles/Vol] 4.0 mmol/L Normal 3.5 - 5.1 [facility] Comment on above: Performed By: #### 2 75088 ####[facility],[address] [place] [address] Protein [Mass/Vol] 7.3 g/dL Normal 6.4 - 8.2 [facility] Comment on above: Performed By: #### 2 54262 ####[facility],[address] [place] [address] Sodium [Moles/Vol] 137 mmol/L Normal 136 - 145 [facility] Comment on above: Performed By: #### 2 67887 ####[facility],[address] [place] [address] Urea nitrogen [Mass/Vol] 13 mg/dL Normal 7 - 18 [facility] Comment on above: Performed By: #### 2 97706 ####[facility],[address] [place] [address] ABDOMEN/PELVIS WOon 04-03 CT ABDOMEN/PELVIS WO Normal [facility] ED MED ADMINISTRATION DETAIL on 04-03-2025 ED MED ADMINISTRATION DETAIL Normal [facility] ED NURSES CLINICAL NOTEon ED NURSES CLINICAL NOTE Normal [facility] ED ORDER SHEET (CPOE ONLY)on 04-03-2025 ED ORDER SHEET (CPOE ONLY) Normal [facility] ED PHYSICIAN CLINICAL REPORT on 04-03-2025 ED PHYSICIAN CLINICAL REPORT Normal [facility] ED SUPER BILLon 04-03-2025 ED SUPER BILL Normal [facility] ED VISIT SUMMARYon ED VISIT SUMMARY Normal [facility] ED VITALS FLOW SHEETon 04-03 ED VITALS FLOW SHEET Normal [facility] LACTATEon 04-03-2025 Lactate [Moles/Vol] 0.7 mmol/L Normal 0.4 - 2.0 [facility] Comment on above: Performed By: #### 2 71723 ####[facility],[address] [place] [address] LIPASEon 04-03-2025 Lipase [Catalytic activity/Vol] 36.0 U/L Normal 15.0 - 78.0 [facility] Comment on above: Result Comment: *PLE ASE NOTE THAT RANGES FOR LIPASE HAVE CHANGED OF 10/31/23 DUE TO AN ASSAYUPDATE BY THE PURCHASING DEPARTMENT CLERK.THE NEW ASSAY RANGE IS 6-250 U/L, WITH A REFERENCERANGE OF 16-77 U/L. Performed By: #### 2 86609 ####[facility],[address] [place] [address] URINALYSISon 04-03-2025 Bilirubin Ql (U) Negative Normal NORMAL: NEGATIVE [facility] Comment on above: Performed By: #### 2 19261 ####[facility],[address] [place] [address] Clarity (U) clear Normal NORMAL: CLEAR [facility] Comment on above: Performed By: #### 2 88327 ####[facility],[address] [place] [address] Color (U) yellow Normal NORMAL: YELLOW [facility] Comment on above: Performed By: #### 2 89641 ####[facility],[address] [place], [place] [id number] Glucose Ql (U) NORM Normal NORMAL: NORMAL [facility] Comment on above: Performed By: #### 2 46578 ####[facility],[address] [place] [address] 32888 Hemoglobin Ql (U) Negative Normal NORMAL: NEGATIVE [facility] Comment on above: Performed By: #### 2 47729 ####[facility],[address] [place] [address] 06285 Ketone Negative Normal NORMAL: NEGATIVE [facility] Comment on above: Performed By: #### 2 99295 ####[facility],[address] [place] [address] 33105 Leukocytes Negative Normal NORMAL: NEGATIVE [facility] Comment on above: Performed By: #### 2 07196 ####[facility],[address] [place] [address] 86529 Nitrite Ql (U) Negative Normal NORMAL: NEGATIVE [facility] Comment on above: Performed By: #### 2 85694 ####[facility],[address] [place] [address] 70297 pH (U) 7 [pH] Normal NORMAL: 5.0-8.0 [facility] Comment on above: Performed By: #### 2 50080 ####[facility],[address] [place] [address] 85248 Protein Ql (U) Negative Normal NORMAL: NEGATIVE [facility] Comment on above: Performed By: #### 2 42497 ####[facility],[address] [place] [address] 1.010 Normal NORMAL: 1.010-1.030 [facility] Comment on above: Performed By: #### 2 54828 ####[facility],[address] [place] [address] 07777 Specimen Type R Normal [facility] Comment on above: Performed By: #### 2 93848 ####[facility],[address] [place] [address] 64272 Urinalysis dipstick W Reflex Microscopic panel (U) NOT INDICATED Normal [facility] Comment on above: Performed By: #### 2 17465 ####[facility],[address] [place] [address] Urobilinog NORM Normal NORMAL: NORMAL [facility] Comment on above: Performed By: #### 2 41581 ####[facility],[address] [place] [address] CBC + DIFFon 04-01-2025 Baso # 0.05 x10EE3/UL Normal 0.00 - 0.10 [facility] Comment on above: Performed By: #### 2 94887 ####[facility],[address] [place] [address] Basophils/100 WBC (Bld) 0.5 % Normal 0.0 - 2.0 [facility] Comment on above: Performed By: #### 2 37333 ####[facility],[address] [place] [address] CBC + DIFF Normal [facility] Comment on above: Result Comment: CBC- COMPLETE BLOOD COUNT Performed By: #### 2 49446 ####[facility],[address] [place] [address] EO # 0.24 x10EE3/UL Normal 0.00 - 0.50 [facility] Comment on above: Performed By: #### 2 03311 ####[facility],[address] [place], [place] [id number] Eosinophils/100 WBC (Bld) 2.1 % Normal 0.0 - 7.0 [facility] Comment on above: Performed By: #### 2 03169 ####[facility],[address] [place] [address] Erythrocyte distribution width (RBC) [Ratio] 13.9 % Normal 12.0 - 15.6 [facility] Comment on above: Performed By: #### 2 08752 ####[facility],[address] [place] [address] 95617 Hematocrit (Bld) [Volume fraction] 40.5 % Normal 34.0 - 46.0 [facility] Comment on above: Performed By: #### 2 48838 ####[facility],[address] [place] [address] 98135 Hemoglobin (Bld) [Mass/Vol] 14.3 g/dL Normal 12.0 - 16.0 [facility] Comment on above: Performed By: #### 2 36327 ####[facility],[address] [place] [address] Lymph # 2.89 x10EE3/UL High 0.80 - 2.80 [facility] Comment on above: Performed By: #### 2 00523 ####[facility],[address] [place] [address] 46787 Lymphocytes/100 WBC (Bld) 25.5 % Normal 20.0 - 45.0 [facility] Comment on above: Performed By: #### 2 58639 ####[facility],[address] [place] [address] 65424 MANUAL DIFF N/A Normal [facility] Comment on above: Performed By: #### 2 69794 ####[facility],[address] [place] [address] 01473 MCH (RBC) [Entitic mass] 34 pg High 27 - 33 [facility] Comment on above: Performed By: #### 2 42855 ####[facility],[address] [place] [address] 16072 MCHC 35 X10 3 Normal 32 - 36 [facility] Comment on above: Performed By: #### 2 01071 ####[facility],[address] [place] [address] 83545 MCV (RBC) [Entitic vol] 97 fL Normal 80 - 99 [facility] Comment on above: Performed By: #### 2 52443 ####[facility],[address] [place] [address] 38464 [place] # 0.95 x10EE3/UL Normal 0.20 - 1.00 [facility] Comment on above: Performed By: #### 2 46594 ####[facility],[address] [place] [address] 04279 MONOS % 8.4 % Normal 0.0 - 10.0 [facility] Comment on above: Performed By: #### 2 14912 ####[facility],[address] [place] [address] 07178 Morphology Efra (Bld) [Interp] N/A Normal [facility] Comment on above: Performed By: #### 2 02761 ####[facility],[address] [place] [address] 77985 Neut # 7.19 x10EE3/UL High 1.50 - 7.10 [facility] Comment on above: Performed By: #### 2 46420 ####[facility],[address] [place] [address] 96425 Neutrophils/100 WBC (Bld) 63.5 % Normal 46.0 - 76.0 [facility] Comment on above: Performed By: #### 2 07919 ####[facility],[address] [place] [address] 99508 PLATELET 406 x10EE3/UL Normal 150 - 450 [facility] Comment on above: Performed By: #### 2 89928 ####[facility],[address] [place] [address] 15115 Platelet mean volume (Bld) [Entitic vol] 7.2 fL Normal 6.6 - 10.5 [facility] Comment on above: Result Comment: AUTO MATED DIFFERENTIAL Performed By: #### 2 49249 ####[facility],[address] [place] [address] 23898 RBC 4.20 x 10EE6/UL Normal 4.10 - 5.30 [facility] Comment on above: Performed By: #### 2 81281 ####[facility],[address] [place] [address] 21355 WBC 11.3 x 10EE3/UL High 4.5 - 10.8 [facility] Comment on above: Performed By: #### 2 77648 ####[facility],[address] [place] [address] 63683 CMP with eGFRon 04-01-2025 AGE 34 years Normal [facility] Comment on above: Performed By: #### 2 50494 ####[facility],[address] [place] [address] 76272 Albumin [Mass/Vol] 3.6 g/dL Normal 3.4 - 5.0 [facility] Comment on above: Performed By: #### 2 60360 ####[facility],[address] [place] [address] 75364 Albumin/Globulin [Mass ratio] 1.1 {ratio} Normal 0.9 - 1.6 [facility] Comment on above: Performed By: #### 2 41015 ####[facility],[address] [place] [address] 69470 ALK PHOS 79 U/L Normal 46 - 116 [facility] Comment on above: Performed By: #### 2 17399 ####[facility],[address] [place] [address] 51305 ALT [Catalytic activity/Vol] 16 U/L Normal 16 - 63 [facility] Comment on above: Performed By: #### 2 50267 ####[facility],[address] [place] [address] 68873 Anion gap [Moles/Vol] 14 mmol/L Normal 10 - 20 [facility] Comment on above: Performed By: #### 2 19832 ####[facility],[address] [place] [address] 82629 AST [Catalytic activity/Vol] 16 U/L Normal 13 - 39 [facility] Comment on above: Performed By: #### 2 82186 ####[facility],[address] [place] [address] 72602 B/C RATIO 11 ratio Normal 0 - 30 [facility] Comment on above: Performed By: #### 2 97434 ####[facility],[address] [place] [address] 07198 Bilirubin [Mass/Vol] 0.3 mg/dL Normal 0.2 - 1.0 [facility] Comment on above: Performed By: #### 2 80450 ####[facility],[address] [place] [address] 49693 Calcium [Mass/Vol] 8.9 mg/dL Normal 8.5 - 10.1 [facility] Comment on above: Performed By: #### 2 15846 ####[facility],[address] [place] [address] 01055 Chloride [Moles/Vol] 105 mmol/L Normal 98 - 107 [facility] Comment on above: Performed By: #### 2 11701 ####[facility],[address] [place] [address] 62068 CMP with eGFR Normal [facility] Comment on above: Result Comment: COMP REHENSIVE METABOLIC PANEL Performed By: #### 2 54758 ####[facility],[address] [place] [address] 84690 CO2 [Moles/Vol] 26.8 mmol/L Normal 21.0 - 32.0 [facility] Comment on above: Performed By: #### 2 38180 ####[facility],[address] [place] [address] 38416 Creatinine [Mass/Vol] 1.04 mg/dL High 0.55 - 1.02 [facility] Comment on above: Performed By: #### 2 04112 ####[facility],[address] [place] [address] 00121 eGFR 60 ML/MINUTE Normal 60 - 999 [facility] Comment on above: Performed By: #### 2 19719 ####[facility],[address] [place] [address] 11872 GFR/1.73 sq M.predicted among non-blacks MDRD (S/P/Bld) [Vol rate/Area] mL/min/{1.73_m2} Normal 60 - 999 [facility] Comment on above: Result Comment: ACCO RDING TO THE NATIONAL KIDNEY DISEASE EDUCATION PROGRAM(NKDE), A NORMAL eGFRIS A VALUE GREATER THAN OR EQUAL TO 60 ML/MIN/1.73 SQ METERS.CHRONIC KIDNEY DISEASE: <60mL/MIN/1.73 SQ METERSKIDNEY FAILURE: <15mL/MIN/1.73 SQ METERSTHIS TEST SHOULD ONLY BE USED FOR PATIENTS 18 YEARS OF AGE AND OLDER. Performed By: #### 2 69197 ####[facility],[address] [place] [address] 38155 Globulin (S) [Mass/Vol] 3.2 g/dL Normal 1.5 - 3.8 [facility] Comment on above: Performed By: #### 2 04964 ####[facility],[address] [place] [address] 30877 Glucose [Mass/Vol] 91 mg/dL Normal 74 - 106 [facility] Comment on above: Performed By: #### 2 57109 ####[facility],[address] [place] [address] 66090 Potassium [Moles/Vol] 4.1 mmol/L Normal 3.5 - 5.1 [facility] Comment on above: Performed By: #### 2 56093 ####[facility],[address] [place] [address] 12033 Protein [Mass/Vol] 6.8 g/dL Normal 6.4 - 8.2 [facility] Comment on above: Performed By: #### 2 99127 ####[facility],[address] [place] [address] 43313 Sodium [Moles/Vol] 142 mmol/L Normal 136 - 145 [facility] Comment on above: Performed By: #### 2 42446 ####[facility],[address] [place] [address] 27779 Urea nitrogen [Mass/Vol] 11 mg/dL Normal 7 - 18 [facility] Comment on above: Performed By: #### 2 65641 ####[facility],[address] [place], [place] [phone] CORONAVIRUS (SARS) ANTIGEN T ESTon 04-01-2025 EXTERNAL QC DONE? YES Normal [facility] Comment on above: Performed By: #### 2 86967 ####[facility],[address] [place] [address] INTERNAL CONTROL PASS Normal [facility] Comment on above: Performed By: #### 2 81563 ####[facility],[address] [place] [address] SARS ANTIGEN Negative Normal NORMAL: NEGATIVE [facility] Comment on above: Performed By: #### 2 82799 ####[facility],[address] [place], [place] [id number] SEND TO ? NO Normal [facility] Comment on above: Result Comment: SARS -CoV-2THIS TEST IS BEING USED UNDER THE FDA EUA PROCEDURE. THIS ASSAY HAS BEENVALIDATED AT [facility] FOR USE WITH NASAL AND NASOPHARYNGEAL [...] BECONSIDERED BY HEALTHCARE PROVIDERS IN CONSULTATION WITH [facility]. Performed By: #### 2 91128 ####[facility],[address] [place] [address] ED MED ADMINISTRATION DETAIL on 04-01-2025 ED MED ADMINISTRATION DETAIL Normal [facility] ED NURSES CLINICAL NOTEon ED NURSES CLINICAL NOTE Normal [facility] ED ORDER SHEET (CPOE ONLY)on 04-01-2025 ED ORDER SHEET (CPOE ONLY) Normal [facility] ED PHYSICIAN CLINICAL REPORT on 04-01-2025 ED PHYSICIAN CLINICAL REPORT Normal [facility] ED SUPER BILLon 04-01-2025 ED SUPER BILL Normal [facility] ED VISIT SUMMARYon ED VISIT SUMMARY Normal [facility] ED VITALS FLOW SHEETon 04-01 ED VITALS FLOW SHEET Normal [facility] INFLUENZA VIRUS RAPID A/Bon 04-01-2025 INFLUENZA VIRUS RAPID A/B Normal [facility] Comment on above: Performed By: #### 2 18642 ####[facility],[address] [place], [place] [phone] LACTATEon 04-01-2025 Lactate [Moles/Vol] 1.7 mmol/L Normal 0.4 - 2.0 [facility] Comment on above: Performed By: #### 2 92292 ####[facility],[address] [place] [address] LIPASEon 04-01-2025 Lipase [Catalytic activity/Vol] 169.0 U/L High 15.0 - 78.0 [facility] Comment on above: Result Comment: *PLE ASE NOTE THAT RANGES FOR LIPASE HAVE CHANGED OF 10/31/23 DUE TO AN ASSAYUPDATE BY THE PURCHASING DEPARTMENT CLERK.THE NEW ASSAY RANGE IS 6-250 U/L, WITH A REFERENCERANGE OF 16-77 U/L. Performed By: #### 2 48612 ####[facility],[address] [place] [address] SERUM QUALon 04-01 EXTERNAL QC DONE? YES Normal [facility] Comment on above: Performed By: #### 2 76016 ####[facility],[address] [place] [address] INTERNAL QC PASS Normal [facility] Comment on above: Performed By: #### 2 54336 ####[facility],[address] [place] [address] SER Negative Normal NEGATIVE [facility] Comment on above: Performed By: #### 2 48386 ####[facility],[address] [place] [address] TROPONINon 04-01-2025 HS TROPONIN 4.1 pg/mL Normal 0.0 - 51.4 [facility] Comment on above: Performed By: #### 2 70017 ####[facility],[address] [place], [place] [phone] URINALYSISon 04-01-2025 Amorphous NONE Normal [facility] Comment on above: Performed By: #### 2 98688 ####[facility],[address] [place] [address] Bacteria NONE Normal [facility] Comment on above: Performed By: #### 2 16003 ####[facility],[address] [place] [address] 29647 Bilirubin Ql (U) Negative Normal NORMAL: NEGATIVE [facility] Comment on above: Performed By: #### 2 28311 ####[facility],[address] [place], [place] [phone] Casts NONE Normal [facility] Comment on above: Performed By: #### 2 59964 ####[facility],[address] [place] [address] Clarity (U) clear Normal NORMAL: CLEAR [facility] Comment on above: Performed By: #### 2 49376 ####[facility],[address] [place] [address] Color (U) yellow Normal NORMAL: YELLOW [facility] Comment on above: Performed By: #### 2 63395 ####[facility],[address] [place], [place] [phone] Crystals LM Nom (Urine sed) NONE Normal [facility] Comment on above: Performed By: #### 2 89862 ####[facility],[address] [place], [place] [phone] Epi Cells OCC Normal [facility] Comment on above: Performed By: #### 2 70955 ####[facility],[address] [place] [address] 51588 Glucose Ql (U) NORM Normal NORMAL: NORMAL [facility] Comment on above: Performed By: #### 2 40242 ####[facility],[address] [place] [address] 95891 Hemoglobin Ql (U) 10 Abnormal NORMAL: NEGATIVE [facility] Comment on above: Performed By: #### 2 55317 ####[facility],[address] [place] [address] 55514 Ketone Negative Normal NORMAL: NEGATIVE [facility] Comment on above: Performed By: #### 2 46018 ####[facility],[address] [place], [place] [address] Leukocytes 25 Abnormal NORMAL: NEGATIVE [facility] Comment on above: Performed By: #### 2 66113 ####[facility],[address] [place] [address] 84544 Mucous NONE Normal [facility] Comment on above: Performed By: #### 2 90806 ####[facility],[address] [place] [address] Nitrite Ql (U) Negative Normal NORMAL: NEGATIVE [facility] Comment on above: Performed By: #### 2 86631 ####[facility],[address] [place] [address] pH (U) 6.5 [pH] Normal NORMAL: 5.0-8.0 [facility] Comment on above: Performed By: #### 2 85829 ####[facility],[address] [place] [address] Protein Ql (U) 15 Abnormal NORMAL: NEGATIVE [facility] Comment on above: Performed By: #### 2 31218 ####[facility],[address] [place] [address] 73806 Rbc NONE Normal 0-3/hpf [facility] Comment on above: Performed By: #### 2 36578 ####[facility],[address] [place] [address] 1.015 Normal NORMAL: 1.010-1.030 [facility] Comment on above: Performed By: #### 2 46105 ####[facility],[address] [place] [address] Specimen Type R Normal [facility] Comment on above: Performed By: #### 2 29067 ####[facility],[address] [place] [address] Urinalysis dipstick W Reflex Microscopic panel (U) SEE BELOW Normal [facility] Comment on above: Result Comment: MICR OSCOPIC Performed By: #### 2 06999 ####[facility],[address] [place], [place] [phone] Urobilinog NORM Normal NORMAL: NORMAL [facility] Comment on above: Performed By: #### 2 97021 ####[facility],[address] [place], [place] [phone] Wbc 1-5 Normal 0-5/hpf [facility] Comment on above: Performed By: #### 2 87734 ####[facility],[address] [place] [address] Yeast NONE Normal [facility] Comment on above: Performed By: #### 2 92914 ####[facility],[address] [place] [address] URINE CULTURE [CCL]on 2024 Bacteria identified Cx Nom (U) Normal [facility] Comment on above: Performed By: #### 2 48664 ####[facility],[address] [place] [address] C-REACTIVE PROTEINon 025 CRP 0.15 mg/dl Normal 0.00 - 0.90 [facility] Comment on above: Performed By: #### 2 97693 ####[facility],[address] [place] [address] CBC + DIFFon 03-23-2025 Baso # 0.07 x10EE3/UL Normal 0.00 - 0.10 [facility] Comment on above: Performed By: #### 2 09956 ####[facility],[address] [place], [place] [phone] Basophils/100 WBC (Bld) 0.5 % Normal 0.0 - 2.0 [facility] Comment on above: Performed By: #### 2 48965 ####[facility],[address] [place] [address] CBC + DIFF Normal [facility] Comment on above: Result Comment: CBC- COMPLETE BLOOD COUNT Performed By: #### 2 80050 ####[facility],[address] [place] [address] 65822 CELL COUNT 100 Normal [facility] Comment on above: Performed By: #### 2 01301 ####[facility],[address] [place] [address] 14475 EO # 0.39 x10EE3/UL Normal 0.00 - 0.50 [facility] Comment on above: Performed By: #### 2 84765 ####[facility],[address] [place] [address] 82234 Eosinophils/100 WBC (Bld) 2.6 % Normal 0.0 - 7.0 [facility] Comment on above: Performed By: #### 2 52133 ####[facility],[address] [place] [address] 38910 Erythrocyte distribution width (RBC) [Ratio] 13.8 % Normal 12.0 - 15.6 [facility] Comment on above: Performed By: #### 2 94728 ####[facility],[address] [place] [address] 14606 Hematocrit (Bld) [Volume fraction] 44.3 % Normal 34.0 - 46.0 [facility] Comment on above: Performed By: #### 2 39760 ####[facility],[address] [place] [address] 90646 Hemoglobin (Bld) [Mass/Vol] 15.4 g/dL Normal 12.0 - 16.0 [facility] Comment on above: Performed By: #### 2 12894 ####[facility],[address] [place] [address] 94343 Lymph # 5.14 x10EE3/UL High 0.80 - 2.80 [facility] Comment on above: Performed By: #### 2 77820 ####[facility],[address] [place] [address] 27976 Lymphocytes/100 WBC (Bld) 34.4 % Normal 20.0 - 45.0 [facility] Comment on above: Performed By: #### 2 08863 ####[facility],[address] [place] [address] Lymphocytes/100 WBC (Bld) 42 % Normal 20 - 45 [facility] Comment on above: Performed By: #### 2 08518 ####[facility],[address] [place] [address] MANUAL DIFF SEE BELOW Normal [facility] Comment on above: Performed By: #### 2 88084 ####[facility],[address] [place] [address] MCH (RBC) [Entitic mass] 34 pg High 27 - 33 [facility] Comment on above: Performed By: #### 2 88341 ####[facility],[address] [place] [address] MCHC 35 X10 3 Normal 32 - 36 [facility] Comment on above: Performed By: #### 2 76448 ####[facility],[address] [place] [address] MCV (RBC) [Entitic vol] 97 fL Normal 80 - 99 [facility] Comment on above: Performed By: #### 2 14818 ####[facility],[address] [place] [address] [place] # 1.37 x10EE3/UL High 0.20 - 1.00 [facility] Comment on above: Performed By: #### 2 87559 ####[facility],[address] [place] [address] MONOS 8 % Normal 0 - 10 [facility] Comment on above: Performed By: #### 2 92259 ####[facility],[address] [place] [address] MONOS % 9.2 % Normal 0.0 - 10.0 [facility] Comment on above: Performed By: #### 2 87571 ####[facility],[address],[place] [address] Morphology Efra (Bld) [Interp] SEE BELOW Normal [facility] Comment on above: Performed By: #### 2 15976 ####[facility],[address] [place] [address] 95269 Neut # 7.98 x10EE3/UL High 1.50 - 7.10 [facility] Comment on above: Performed By: #### 2 78807 ####[facility],[address] [place] [address] 60051 Neutrophils/100 WBC (Bld) 53.4 % Normal 46.0 - 76.0 [facility] Comment on above: Performed By: #### 2 88869 ####[facility],[address] [place], [place] [address] PLATELET 512 x10EE3/UL High 150 - 450 [facility] Comment on above: Performed By: #### 2 82466 ####[place] [address] Platelet mean volume (Bld) [Entitic vol] 7.8 fL Normal 6.6 - 10.5 [facility] Comment on above: Result Comment: AUTO MATED DIFFERENTIAL Performed By: #### 2 16715 ####[facility],[address] [place] [address] 34770 PLT EST INCREASED Normal [facility] Comment on above: Performed By: #### 2 61585 ####[facility],[address] [place] [address] 84639 RBC 4.59 x 10EE6/UL Normal 4.10 - 5.30 [facility] Comment on above: Performed By: #### 2 06497 ####[address] [address] SEGS 50 % Normal 46 - 76 [facility] Comment on above: Performed By: #### 2 65964 ####[facility],[address] [place], [place] [address] WBC 15.0 x 10EE3/UL High 4.5 - 10.8 [facility] Comment on above: Performed By: #### 2 39489 ####[facility],[address] [place], [place] [address] Other RBC MORPH NORMAL Normal [facility] Comment on above: Performed By: #### 2 57399 ####[facility],[address] [place] [address]336 CMP with eGFRon 03-23-2025 AGE 34 years Normal [facility] Comment on above: Performed By: #### 2 98884 ####[facility],[address] [place] [address] 18265 Albumin [Mass/Vol] 4.0 g/dL Normal 3.4 - 5.0 [facility] Comment on above: Performed By: #### 2 82994 ####[facility],[address] [place], [place] [address] Albumin/Globulin [Mass ratio] 1.1 {ratio} Normal 0.9 - 1.6 [facility] Comment on above: Performed By: #### 2 94112 ####[facility],[address] [place] [address] 83050 ALK PHOS 88 U/L Normal 46 - 116 [facility] Comment on above: Performed By: #### 2 39477 ####[facility],[address] [place] [address] 11909 ALT [Catalytic activity/Vol] 14 U/L Low 16 - 63 [facility] Comment on above: Performed By: #### 2 85975 ####[facility],[address] [place] [address] 51772 Anion gap [Moles/Vol] 14 mmol/L Normal 10 - 20 [facility] Comment on above: Performed By: #### 2 44564 ####[facility],[address] [place] [address] 46754 AST [Catalytic activity/Vol] 17 U/L Normal 13 - 39 [facility] Comment on above: Performed By: #### 2 74472 ####[facility],[address] [place] [address] 92057 B/C RATIO 8 ratio Normal 0 - 30 [facility] Comment on above: Performed By: #### 2 70458 ####[facility],[address] [place] [address]255 Bilirubin [Mass/Vol] 0.4 mg/dL Normal 0.2 - 1.0 [facility] Comment on above: Performed By: #### 2 66980 ####[facility],[address] [place] [address] 8[address]40 Calcium [Mass/Vol] 9.3 mg/dL Normal 8.5 - 10.1 [facility] Comment on above: Performed By: #### 2 19041 ####[facility],[address] [place], [place] [address] Chloride [Moles/Vol] 103 mmol/L Normal 98 - 107 [facility] Comment on above: Performed By: #### 2 52429 ####[facility],[address] [place] [address] CMP with eGFR Normal [facility] Comment on above: Result Comment: COMP REHENSIVE METABOLIC PANEL Performed By: #### 2 09535 ####[facility],[address] [place] [address]271 CO2 [Moles/Vol] 25.1 mmol/L Normal 21.0 - 32.0 [facility] Comment on above: Performed By: #### 2 26487 ####[facility],[address] [place] [address]3931 Creatinine [Mass/Vol] 1.06 mg/dL High 0.55 - 1.02 [facility] Comment on above: Performed By: #### 2 30009 ####[facility],[address] [place], [place] [address] eGFR 59 ML/MINUTE Low 60 - 999 [facility] Comment on above: Performed By: #### 2 05264 ####[address] [address] GFR/1.73 sq M.predicted among non-blacks MDRD (S/P/Bld) [Vol rate/Area] mL/min/{1.73_m2} Normal 60 - 999 [facility] Comment on above: Result Comment: ACCO RDING TO THE NATIONAL KIDNEY DISEASE EDUCATION PROGRAM(NKDE), A NORMAL eGFRIS A VALUE GREATER THAN OR EQUAL TO 60 ML/MIN/1.73 SQ METERS.CHRONIC KIDNEY DISEASE: <60mL/MIN/1.73 SQ METERSKIDNEY FAILURE: <15mL/MIN/1.73 SQ METERSTHIS TEST SHOULD ONLY BE USED FOR PATIENTS 18 YEARS OF AGE AND OLDER. Performed By: #### 2 97275 ####[address] [address] Globulin (S) [Mass/Vol] 3.6 g/dL Normal 1.5 - 3.8 [facility] Comment on above: Performed By: #### 2 21284 ####[address] [address] Glucose [Mass/Vol] 106 mg/dL Normal 74 - 106 [facility] Comment on above: Performed By: #### 2 35843 ####[address] [address] Potassium [Moles/Vol] 3.3 mmol/L Low 3.5 - 5.1 [facility] Comment on above: Performed By: #### 2 02688 ####[address] [address] Protein [Mass/Vol] 7.6 g/dL Normal 6.4 - 8.2 [facility] Comment on above: Performed By: #### 2 40182 ####[address] [address] Sodium [Moles/Vol] 139 mmol/L Normal 136 - 145 [facility] Comment on above: Performed By: #### 2 36878 ####[facility],[address] [place] [address] 89967 Urea nitrogen [Mass/Vol] 8 mg/dL Normal 7 - 18 [facility] Comment on above: Performed By: #### 2 56215 ####[facility],[address] [place] [address] ED MED ADMINISTRATION DETAIL on 03-23-2025 ED MED ADMINISTRATION DETAIL Normal [facility] ED NURSES CLINICAL NOTEon ED NURSES CLINICAL NOTE Normal [facility] ED ORDER SHEET (CPOE ONLY)on 03-23-2025 ED ORDER SHEET (CPOE ONLY) Normal [facility] ED PHYSICIAN CLINICAL REPORT on 03-23-2025 ED PHYSICIAN CLINICAL REPORT Normal [facility] ED SUPER BILLon 03-23-2025 ED SUPER BILL Normal [facility] ED VISIT SUMMARYon ED VISIT SUMMARY Normal [facility] ED VITALS FLOW SHEETon 03-23 ED VITALS FLOW SHEET Normal [facility] URINALYSISon 03-23-2025 Amorphous NONE Normal [facility] Comment on above: Performed By: #### 2 22453 ####[facility],[address] [place] [address] Bacteria 3+ Normal [facility] Comment on above: Performed By: #### 2 81957 ####[facility],[address] [place] [address] 10963 Bilirubin Ql (U) Negative Normal NORMAL: NEGATIVE [facility] Comment on above: Performed By: #### 2 93918 ####[facility],[address] [place] [address] 87725 Casts NONE Normal [facility] Comment on above: Performed By: #### 2 00599 ####[facility],[address] [place], [place] [id number] Clarity (U) sl.cloudy Normal NORMAL: CLEAR [facility] Comment on above: Performed By: #### 2 42856 ####[facility],[address] [place] [address] 46491 Color (U) yellow Normal NORMAL: YELLOW [facility] Comment on above: Performed By: #### 2 35415 ####[facility],[address] [place] [address] 83808 Crystals LM Nom (Urine sed) SEE BELOW Normal [facility] Comment on above: Performed By: #### 2 24434 ####[facility],[address] [place], [place] [address] Epi Cells NONE Normal [facility] Comment on above: Performed By: #### 2 52332 ####[facility],[address] [place] [address] 20922 Glucose Ql (U) NORM Normal NORMAL: NORMAL [facility] Comment on above: Performed By: #### 2 34680 ####[facility],[address] [place] [address] 36735 Hemoglobin Ql (U) 250 Abnormal NORMAL: NEGATIVE [facility] Comment on above: Performed By: #### 2 61809 ####[facility],[address] [place] [address] 72184 Ketone Negative Normal NORMAL: NEGATIVE [facility] Comment on above: Performed By: #### 2 70521 ####[facility],[address] [place] [address] 27921 Leukocytes 500 Abnormal NORMAL: NEGATIVE [facility] Comment on above: Performed By: #### 2 48348 ####[facility],[address] [place] [address] 91261 Mucous NONE Normal [facility] Comment on above: Performed By: #### 2 59155 ####[facility],[address] [place] [address] 76746 Nitrite Ql (U) Positive Normal NORMAL: NEGATIVE [facility] Comment on above: Performed By: #### 2 11629 ####[facility],[address] [place] [address] pH (U) 8 [pH] Normal NORMAL: 5.0-8.0 [facility] Comment on above: Performed By: #### 2 63287 ####[facility],[address] [place] [address] Protein Ql (U) 500 Abnormal NORMAL: NEGATIVE [facility] Comment on above: Performed By: #### 2 23882 ####[facility],[address] [place] [address] Rbc 15-20 Normal 0-3/hpf [facility] Comment on above: Performed By: #### 2 61104 ####[facility],[address] [place] [address] 1.015 Normal NORMAL: 1.010-1.030 [facility] Comment on above: Performed By: #### 2 01631 ####[facility],[address] [place] [address] Specimen Type R Normal [facility] Comment on above: Performed By: #### 2 50286 ####[facility],[address] [place] [address] Triple Phos 1+ Normal NORMAL: NONE [facility] Comment on above: Performed By: #### 2 41543 ####[facility],[address] [place] [address] Urinalysis dipstick W Reflex Microscopic panel (U) SEE BELOW Normal [facility] Comment on above: Result Comment: MICR OSCOPIC Performed By: #### 2 04967 ####[facility],[address] [place] [address] Urobilinog NORM Normal NORMAL: NORMAL [facility] Comment on above: Performed By: #### 2 80400 ####[facility],[address] [place] [address] Wbc 26-50 Normal 0-5/hpf [facility] Comment on above: Performed By: #### 2 27668 ####[facility],[address] [place] [address] Yeast NONE Normal [facility] Comment on above: Performed By: #### 2 89233 ####[facility],[address] [place] [address] .Auto Diffon 03-15-2025 Basophil, Absolute 0.1 10 3/mcL Normal 0.0-0.3 [facility] Comment on above: Performed By: #### G FR, ANEU, CMP, CBC, ADMACEY, MDW, LAC ####[address] [address] Basophils/100 WBC (Bld) 0.7 % Normal 0.0-2.5 [facility] Comment on above: Performed By: #### G FR, ANEU, CMP, CBC, ADIFF, MDW, LAC ####[address] [address] Eosinophil, Absolute 0.2 10 3/mcL Normal 0.0-0.[address] [facility] Comment on above: Performed By: #### G FR, ANEU, CMP, CBC, ADIFF, MDW, LAC ####[address] [address] Eosinophils/100 WBC (Bld) 2.0 % Normal 0.0-6.0 [facility] Comment on above: Performed By: #### G FR, ANEU, CMP, CBC, ADIFF, MDW, LAC ####[address] [address] Lymphocyte, Absolute 1.9 10 3/mcL Normal 0.9-4.[address] [facility] Comment on above: Performed By: #### G FR, ANEU, CMP, CBC, ADIFF, MDW, LAC ####[address] [address] Lymphocytes/100 WBC (Bld) 22.2 % Normal 20.0-40.0 [facility] Comment on above: Performed By: #### G FR, ANEU, CMP, CBC, ADIFF, MDW, LAC ####[place] [id number] [place] [address]47 Monocyte, Absolute 1.0 10 3/mcL Normal 0.1-1.4 [facility] Comment on above: Performed By: #### G FR, ANEU, CMP, CBC, ADIFF, MDW, LAC ####[place] [id number] [place] [address] 02784 Monocytes/100 WBC (Bld) 11.4 % Normal 2.0-13.0 [facility] Comment on above: Performed By: #### G FR, ANEU, CMP, CBC, ADIFF, MDW, LAC ####[place] [id number] [place] [address] 92847 Neutrophils/100 WBC (Bld) 63.7 % Normal 50.0-75.0 [facility] Comment on above: Performed By: #### G FR, ANEU, CMP, CBC, ADIFF, MDW, LAC ####[address] [address] .GFRon 03-15-2025 Estimated Glomerular Filtration Rate 98 ml/min/1.73sqm Normal [facility] Comment on above: Result [...] FR, ANEU, CMP, CBC, ADIFF, MDW, LAC ####[address] [address] .MDWon 03-15-2025 Monocyte Distribution Width 19.00 Normal 0.00-20.00 [facility] Comment on above: Result Comment: For ED adult patients suspected of sepsis, MDW<=20.0 does not rule out sepsis or risk of sepsis Performed By: #### G FR, ANEU, CMP, CBC, ADIFF, MDW, LAC ####[place] [address] .NEUABSon 03-15-2025 Neutrophil, Absolute 5.5 10 3/mcL Normal 2.3-8.[address] [facility] Comment on above: Performed By: #### G FR, ANEU, CMP, CBC, ADIFF, MDW, LAC ####[place] [address] CBCon 03-15-2025 Erythrocyte distribution width (RBC) [Ratio] 14.7 % Normal 11.5-15.5 [facility] Comment on above: Performed By: #### G FR, ANEU, CMP, CBC, ADIFF, MDW, LAC ####[place] [address] Hematocrit (Bld) [Volume fraction] 38.6 % Normal 34.0-46.0 [facility] Comment on above: Performed By: #### G FR, ANEU, CMP, CBC, ADIFF, MDW, LAC ####[place] [address] Hgb 12.6 G/dL Normal 12.0-16.0 [facility] Comment on above: Performed By: #### G FR, ANEU, CMP, CBC, ADIFF, MDW, LAC ####[place] [address] MCH (RBC) [Entitic mass] 31.4 pg Normal 27.0-33.0 [facility] Comment on above: Performed By: #### G FR, ANEU, CMP, CBC, ADIFF, MDW, LAC ####[place] [address] MCHC 32.5 G/dL Normal 32.0-36.0 [facility] Comment on above: Performed By: #### G FR, ANEU, CMP, CBC, ADIFF, MDW, LAC ####[place] [address] MCV (RBC) [Entitic vol] 96.7 fL Normal 80.0-99.0 [facility] Comment on above: Performed By: #### G FR, ANEU, CMP, CBC, MD CHENW, LAC ####[place] [address] Platelet 294 10 3/mcL Normal 150-450 [facility] Comment on above: Performed By: #### G FR, ANEU, CMP, CBC, CHEN, W, LAC ####[place] [address] Platelet mean volume (Bld) [Entitic vol] 7.3 fL Normal 6.6-10.5 [facility] Comment on above: Performed By: #### G FR, ANEU, CMP, CBC, CHEN, W, LAC ####[place] [address] RBC 4.00 10 6/mcL Low 4.10-5.30 [facility] Comment on above: Performed By: #### G FR, ANEU, CMP, CBC, CHEN, W, LAC ####[place] [address] WBC 8.7 10 3/mcL Normal 4.5-10.8 [facility] Comment on above: Performed By: #### G FR, ANEU, CMP, CBC, CHEN, W, LAC ####[place] [address] CMPon 03-15-2025 Albumin Level 4.0 G/dL Normal 3.2-4.8 [facility] Comment on above: Performed By: #### G FR, ANEU, CMP, CBC, CHEN, W, LAC ####[place] [address] Albumin/Globulin [Mass ratio] 1.2 {ratio} Normal 0.9-1.6 [facility] Comment on above: Performed By: #### G FR, ANEU, CMP, CBC, CHEN, MDW, LAC ####[address] [address] ALP [Catalytic activity/Vol] 72 U/L Normal 38-126 [facility] Comment on above: Performed By: #### G FR, ANEU, CMP, CBC, ADMACEY, W, LAC ####[address] [address] ALT [Catalytic activity/Vol] 9 U/L Low 10-49 [facility] Comment on above: Performed By: #### G FR, ANEU, CMP, CBC, ADMACEY, MDW, LAC ####[place] [id number] AST [Catalytic activity/Vol] 19 U/L Normal 8-34 [facility] Comment on above: Performed By: #### G FR, ANEU, CMP, CBC, ADMACEY, MDW, LAC ####[place] [address] Bili Total 0.30 mg/dL Normal 0.20-1.20 [facility] Comment on above: Result Comment: Use of this assay is not recommended for patients undergoing treatment with eltrombopag due to the potential for falsely elevated results. Performed By: #### G FR, ANEU, CMP, CBC, CHEN, W, LAC ####[place] [address] BUN/Creatinine Ratio 7.5 ratio Low 10.0-22.0 [facility] Comment on above: Performed By: #### G FR, ANEU, CMP, CBC, CHEN, MDW, LAC ####[place] [id number] Calcium [Mass/Vol] 9.7 mg/dL Normal 8.7-10.4 [facility] Comment on above: Performed By: #### G FR, ANEU, CMP, CBC, CHEN, MDW, LAC ####[place] [address] Chloride [Moles/Vol] 107 mmol/L Normal 98-110 [facility] Comment on above: Performed By: #### G FR, ANEU, CMP, CBC, ADMACEY, MDW, LAC ####[address] [address] CO2 [Moles/Vol] 28 mmol/L Normal 22-32 [facility] Comment on above: Performed By: #### G FR, ANEU, CMP, CBC, ADIFF, MDW, LAC ####[place] [address] Creatinine [Mass/Vol] 0.80 mg/dL Normal 0.50-1.20 [facility] Comment on above: Result Comment: Test ing performed on Cortexica analyzer using enzymatic creatinine methodology. Performed By: #### G FR, ANEU, CMP, CBC, ADIFF, MDW, LAC ####[place] [address] Electrolyte Balance 3.0 mEq/L Low 4.0-15.0 [facility] Comment on above: Performed By: #### G FR, ANEU, CMP, CBC, ADIFF, MDW, LAC ####[place] [id number] Globulin 3.3 G/dL Normal 2.5-4.2 [facility] Comment on above: Performed By: #### G FR, ANEU, CMP, CBC, ADMACEY, MDW, LAC ####[place] [address] Glucose [Mass/Vol] 101 mg/dL Normal 70-110 [facility] Comment on above: Performed By: #### G FR, ANEU, CMP, CBC, ADIFF, MDW, LAC ####[place] [address] Potassium [Moles/Vol] 3.8 mmol/L Normal 3.5-5.0 [facility] Comment on above: Result Comment: Spec imen slightly hemolyzed. Performed By: #### G FR, ANEU, CMP, CBC, ADIFF, MDW, LAC ####[place] [address] Sodium [Moles/Vol] 138 mmol/L Normal 136-145 [facility] Comment on above: Performed By: #### G FR, ANEU, CMP, CBC, ADIFF, MDW, LAC ####[facility] [place] [address] Total Protein 7.3 G/dL Normal 5.7-8.2 [facility] Comment on above: Performed By: #### G FR, ANEU, CMP, CBC, YOUNG SIDDIQUI, LAC ####[facility] [place] [address] Urea nitrogen [Mass/Vol] 6.0 mg/dL Low 8.0-22.0 [facility] Comment on above: Performed By: #### G FR, ANEU, CMP, CBC, YOUNG SIDDIQUI, LAC ####[facility] [place] [address] ABD/PELVIS W/ IV CONTRAST ONLYon 03-15-2025 CT ABD/PELVIS W/ IV CONTRAST ONLY Normal [facility] LABORATORYOrdered By: SYSTEM SYSTEM [...] above: Interpretive Data: T esting performed on Cortexica analyzer using enzymatic creatinine methodology. Electrolyte Balance [...] Lactic Acid Lvl 1.3 mmol/L Normal 0.5-2.2 [facility] Comment on above: Performed By: #### G FR, ANEU, CMP, CBC, ADIFF, MDW, LAC ####[place] [address] UAon 03-15-2025 Color (U) Yellow Normal [facility] Comment on above: Performed By: #### U A, UAMIC ####[place] [address] Glucose (U) [Mass/Vol] Negative Normal Negative [facility] Comment on above: Performed By: #### U A, UAMIC ####[place] [address] Ketones Ql (U) Trace Normal Neg-Trace [facility] Comment on above: Performed By: #### U A, UAMIC ####[place] [address] UA Appear Clear Normal Clear [facility] Comment on above: Performed By: #### U A, UAMIC ####[place] [address] UA Blood Small Abnormal Neg-Trace [facility] Comment on above: Performed By: #### U A, UAMIC ####[place] [address] UA Leuk Est Trace Normal Negative [facility] Comment on above: Performed By: #### U A, UAMIC ####[place] [address] UA Nitrite Negative Normal Negative [facility] Comment on above: Performed By: #### U A, UAMIC ####[place] [address] UA pH 6.5 Normal 5.0 - 8.0 [facility] Comment on above: Performed By: #### U A, UAMIC ####[place] [address] UA Protein Trace Normal Negative [facility] Comment on above: Performed By: #### U A, UAMIC ####[place] [address] UA Spec Grav 1.020 Normal 1.006-1.029 [facility] Comment on above: Performed By: #### U A, UAMIC ####[place] [address] UA Specimen Type Clean Catch Normal [facility] Comment on above: Performed By: #### U A, UAMIC ####[place] [address] UA Urobilinogen 1.0 E.U./dL Normal 0.2-1.0 [facility] Comment on above: Performed By: #### U A, UAMIC ####[place] [address] Urobilinogen (U) [Mass/Vol] Negative Normal Neg-Trace [facility] Comment on above: Performed By: #### U A, UAMIC ####[place] [address] UAMICon 03-15-2025 UA Bacteria Trace Abnormal Negative [facility] Comment on above: Performed By: #### U A, UAMIC ####[place] [address] UA Mucous 4+ /hpf Normal [facility] Comment on above: Performed By: #### U A, UAMIC ####[place] [address] UA RBC 5-10 Abnormal 0-2 [facility] Comment on above: Performed By: #### U A, UAMIC ####[place] [address] UA Squam Epithelial 3-5 Normal 0-20 [facility] Comment on above: Performed By: #### U A, UAMIC ####[place] [address] UA WBC 0-2 Normal 0-5 [facility] Comment on above: Performed By: #### U A, UAMIC ####[place] [address] .Auto Diffon 03-09-2025 Basophil, Absolute 0.1 10 3/mcL Normal 0.0-0.3 [facility] Comment on above: Performed By: #### A DIFF, ANEU, GFR, CBC, LAC, LIP, CMP, MDW ####[place] [address] Basophils/100 WBC (Bld) 1.0 % Normal 0.0-2.5 [facility] Comment on above: Performed By: #### A DIFF, ANEU, GFR, CBC, LAC, LIP, CMP, MDW ####[address] [address] Eosinophil, Absolute 0.2 10 3/mcL Normal 0.0-0.[address] [facility] Comment on above: Performed By: #### A DIFF, ANEU, GFR, CBC, LAC, LIP, CMP, MDW ####[address] [address] Eosinophils/100 WBC (Bld) 2.5 % Normal 0.0-6.0 [facility] Comment on above: Performed By: #### A DIFF, ANEU, GFR, CBC, LAC, LIP, CMP, MDW ####[address] [address] Lymphocyte, Absolute 2.2 10 3/mcL Normal 0.9-4.[address] [facility] Comment on above: Performed By: #### A DIFF, ANEU, GFR, CBC, LAC, LIP, CMP, MDW ####[address] [address] Lymphocytes/100 WBC (Bld) 24.2 % Normal 20.0-40.0 [facility] Comment on above: Performed By: #### A DIFF, ANEU, GFR, CBC, LAC, LIP, CMP, MDW ####[address] [address] Monocyte, Absolute 0.6 10 3/mcL Normal 0.1-1.4 [facility] Comment on above: Performed By: #### A DIFF, ANEU, GFR, CBC, LAC, LIP, CMP, MDW ####[address] [address] Monocytes/100 WBC (Bld) 6.8 % Normal 2.0-13.0 [facility] Comment on above: Performed By: #### A DIFF, ANEU, GFR, CBC, LAC, LIP, CMP, MDW ####[address] [address] Neutrophils/100 WBC (Bld) 65.5 % Normal 50.0-75.0 [facility] Comment on above: Performed By: #### A DIFF, ANEU, GFR, CBC, LAC, LIP, CMP, MDW ####[place] [address] .GFRon 03-09-2025 Estimated Glomerular Filtration Rate 88 ml/min/1.73sqm Normal [facility] Comment on above: Result [...] ANEU, GFR, CBC, LAC, LIP, CMP, MDW ####[place] [address] .MDWon 03-09-2025 Monocyte Distribution Width 14.95 Normal 0.00-20.00 [facility] Comment on above: Result Comment: For ED adult patients suspected of sepsis, MDW<=20.0 does not rule out sepsis or risk of sepsis Performed By: #### A DIFF, ANEU, GFR, CBC, LAC, LIP, CMP, MDW ####[place] [address] .NEUABSon 03-09-2025 Neutrophil, Absolute 5.9 10 3/mcL Normal 2.3-8.[address] [facility] Comment on above: Performed By: #### A DIFF, ANEU, GFR, CBC, LAC, LIP, CMP, MDW ####[place] [address] CBCon 03-09-2025 Erythrocyte distribution width (RBC) [Ratio] 14.4 % Normal 11.5-15.5 [facility] Comment on above: Performed By: #### A DIFF, ANEU, GFR, CBC, LAC, LIP, CMP, MDW ####[place] [address] Hematocrit (Bld) [Volume fraction] 43.5 % Normal 34.0-46.0 [facility] Comment on above: Performed By: #### A DIFF, ANEU, GFR, CBC, LAC, LIP, CMP, MDW ####[place] [address] Hgb 14.6 G/dL Normal 12.0-16.0 [facility] Comment on above: Performed By: #### A DIFF, ANEU, GFR, CBC, LAC, LIP, CMP, MDW ####[place] [address] MCH (RBC) [Entitic mass] 32.5 pg Normal 27.0-33.0 [facility] Comment on above: Performed By: #### A DIFF, ANEU, GFR, CBC, LAC, LIP, CMP, MDW ####[place] [address] MCHC 33.7 G/dL Normal 32.0-36.0 [facility] Comment on above: Performed By: #### A DIFF, ANEU, GFR, CBC, LAC, LIP, CMP, MDW ####[place] [address] MCV (RBC) [Entitic vol] 96.5 fL Normal 80.0-99.0 [facility] Comment on above: Performed By: #### A DIFF, ANEU, GFR, CBC, LAC, LIP, CMP, MDW ####[place] [address] Platelet 370 10 3/mcL Normal 150-450 [facility] Comment on above: Performed By: #### A DIFF, ANEU, GFR, CBC, LAC, LIP, CMP, MDW ####[place] [address] Platelet mean volume (Bld) [Entitic vol] 7.4 fL Normal 6.6-10.5 [facility] Comment on above: Performed By: #### A DIFF, ANEU, GFR, CBC, LAC, LIP, CMP, MDW ####[address] [address] RBC 4.50 10 6/mcL Normal 4.10-5.30 [facility] Comment on above: Performed By: #### A DIFF, ANEU, GFR, CBC, LAC, LIP, CMP, MDW ####[place] [address] WBC 9.0 10 3/mcL Normal 4.5-10.8 [facility] Comment on above: Performed By: #### A DIFF, ANEU, GFR, CBC, LAC, LIP, CMP, MDW ####[place] [address] CMPon 03-09-2025 Albumin Level 4.4 G/dL Normal 3.2-4.8 [facility] Comment on above: Performed By: #### A DIFF, ANEU, GFR, CBC, LAC, LIP, CMP, MDW ####[place] [address] Albumin/Globulin [Mass ratio] 1.4 {ratio} Normal 0.9-1.6 [facility] Comment on above: Performed By: #### A DIFF, ANEU, GFR, CBC, LAC, LIP, CMP, MDW ####[address] [address] ALP [Catalytic activity/Vol] 76 U/L Normal 38-126 [facility] Comment on above: Performed By: #### A DIFF, ANEU, GFR, CBC, LAC, LIP, CMP, MDW ####[address] [address] ALT [Catalytic activity/Vol] 11 U/L Normal 10-49 [facility] Comment on above: Performed By: #### A DIFF, ANEU, GFR, CBC, LAC, LIP, CMP, MDW ####[place] [address] AST [Catalytic activity/Vol] 19 U/L Normal 8-34 [facility] Comment on above: Performed By: #### A DIFF, ANEU, GFR, CBC, LAC, LIP, CMP, MDW ####[place] [id number] Bili Total 0.40 mg/dL Normal 0.20-1.20 [facility] Comment on above: Result Comment: Use of this assay is not recommended for patients undergoing treatment with eltrombopag due to the potential for falsely elevated results. Performed By: #### A DIFF, ANEU, GFR, CBC, LAC, LIP, CMP, MDW ####[place] [address] BUN/Creatinine Ratio 10.3 ratio Normal 10.0-22.0 [facility] Comment on above: Performed By: #### A DIFF, ANEU, GFR, CBC, LAC, LIP, CMP, MDW ####[place] [address] Calcium [Mass/Vol] 9.9 mg/dL Normal 8.7-10.4 [facility] Comment on above: Performed By: #### A DIFF, ANEU, GFR, CBC, LAC, LIP, CMP, MDW ####[place] [address] Chloride [Moles/Vol] 109 mmol/L Normal 98-110 [facility] Comment on above: Performed By: #### A DIFF, ANEU, GFR, CBC, LAC, LIP, CMP, MDW ####[place] [id number] CO2 [Moles/Vol] 27 mmol/L Normal 22-32 [facility] Comment on above: Performed By: #### A DIFF, ANEU, GFR, CBC, LAC, LIP, CMP, MDW ####[place] [address] Creatinine [Mass/Vol] 0.87 mg/dL Normal 0.50-1.20 [facility] Comment on above: Result Comment: Test ing performed on Cortexica analyzer using enzymatic creatinine methodology. Performed By: #### A DIFF, ANEU, GFR, CBC, LAC, LIP, CMP, MDW ####[place] [address] Electrolyte Balance 4.0 mEq/L Normal 4.0-15.0 [facility] Comment on above: Performed By: #### A DIFF, ANEU, GFR, CBC, LAC, LIP, CMP, MDW ####[address] [address] Globulin 3.1 G/dL Normal 2.5-4.2 [facility] Comment on above: Performed By: #### A DIFF, ANEU, GFR, CBC, LAC, LIP, CMP, MDW ####[address] [address] Glucose [Mass/Vol] 80 mg/dL Normal 70-110 [facility] Comment on above: Performed By: #### A DIFF, ANEU, GFR, CBC, LAC, LIP, CMP, MDW ####[address] [address] Potassium [Moles/Vol] 3.9 mmol/L Normal 3.5-5.0 [facility] Comment on above: Performed By: #### A DIFF, ANEU, GFR, CBC, LAC, LIP, CMP, MDW ####[address] [address] Sodium [Moles/Vol] 140 mmol/L Normal 136-145 [facility] Comment on above: Performed By: #### A DIFF, ANEU, GFR, CBC, LAC, LIP, CMP, MDW ####[address] [address] Total Protein 7.5 G/dL Normal 5.7-8.2 [facility] Comment on above: Performed By: #### A DIFF, ANEU, GFR, CBC, LAC, LIP, CMP, MDW ####[address] [address] Urea nitrogen [Mass/Vol] 9.0 mg/dL Normal 8.0-22.0 [facility] Comment on above: Performed By: #### A DIFF, ANEU, GFR, CBC, LAC, LIP, CMP, MDW ####[address] [address] [address] RENALon 03-09-2025 CT RENAL Normal [facility] LABORATORYOrdered By: Nicole Wilson [...] 0-5 AH Auto Urine SS LABORATORYOrdered By: [email or web address] SYSTEM on 03-09-2025 Albumin BCP dye [Mass/Vol] [...] % Workflow SS Bilirubin [Mass/Vol] 0.40 mg/dL Normal 0.20 - 1.20 mg/dL ADM [...] above: Interpretive Data: T esting performed on Cortexica analyzer using enzymatic creatinine methodology. Electrolyte Balance [...] Filtration Rate 88 ml/min/1.73sqm Invalid Interpretation Code AH ADM SS [...] 80 mg/dL Normal 70 - 110 mg/dL AH ADM SS Hematocrit (Bld) [Volume fraction] 43.5 % Normal 34.0 - 46.0 % AH Workflow SS Hemoglobin (Bld) [Mass/Vol] 14.6 G/dL Normal 12.0 - 16.0 G/dL AH Workflow SS Lactate [Moles/Vol] 0.9 mmol/L Normal [...] vol] 14.95 1 Normal 0.00 - 20.00 Workflow SS [...] 10.5 fL Workflow SS Platelets (Bld) [#/Vol] 370 103/mcL Normal 150 - 450 10^3/mcL AH Workflow SS Potassium [Moles/Vol] 3.9 mmol/L Normal 3.5 - 5.0 mEq/L ADM SS Protein [Mass/Vol] 7.5 G/dL Normal 5.7 - 8.2 G/dL ADM SS RBC (Bld) [#/Vol] 4.50 106/mcL Normal 4.10 - 5.3 0 10^6/mcL AH Workflow SS Sodium [Moles/Vol] 140 mmol/L Normal 136 - 145 mEq/L ADM SS Urea nitrogen [Mass/Vol] 9.0 mg/dL Normal 8.0 - 22.0 mg/dL ADM SS Urea nitrogen/Creatinine [Mass ratio] 10.3 ratio Normal 10.0 - 22.0 ratio ADM SS WBC (Bld) [#/Vol] 9.0 103/mcL Normal 4.5 - 10.8 10^3/mcL Workflow SS LACon 03-09-2025 Lactic Acid Lvl 0.9 mmol/L Normal 0.5-2.2 [facility] Comment on above: Performed By: #### A DIFF, ANEU, GFR, CBC, LAC, LIP, CMP, MDW ####[place] [address] LIPon 03-09-2025 Lipase Level 25 U/L Normal 12-53 [facility] Comment on above: Result Comment: No te - New Reference Range in effect 20 Performed By: #### A DIFF, ANEU, GFR, CBC, LAC, LIP, CMP, MDW ####[place] [address] UAon 03-09-2025 Color (U) Yellow Normal [facility] Comment on above: Performed By: #### U A, UAMIC ####[facility] [place] [address] Glucose (U) [Mass/Vol] Negative Normal Negative [facility] Comment on above: Performed By: #### U A, UAMIC ####[facility] [place] [address] Ketones Ql (U) Negative Normal Neg-Trace [facility] Comment on above: Performed By: #### U A, UAMIC ####[facility] [place] [address] UA Appear Clear Normal Clear [facility] Comment on above: Performed By: #### U A, UAMIC ####[place] [address] UA Blood Small Abnormal Neg-Trace [facility] Comment on above: Performed By: #### U A, UAMIC ####[place] [address] UA Leuk Est Moderate Abnormal Negative [facility] Comment on above: Performed By: #### U A, UAMIC ####[place] [address] UA Nitrite Negative Normal Negative [facility] Comment on above: Performed By: #### U A, UAMIC ####[place] [address] UA pH 7.5 Normal 5.0 - 8.0 [facility] Comment on above: Performed By: #### U A, UAMIC ####[place] [address] UA Protein Trace Normal Negative [facility] Comment on above: Performed By: #### U A, UAMIC ####[facility] [place] [address] UA Spec Grav <=1.005 Abnormal 1.006-1.029 [facility] Comment on above: Performed By: #### U A, UAMIC ####[place] [address] UA Specimen Type Not Given Normal [facility] Comment on above: Performed By: #### U A, UAMIC ####[place] [id number] UA Urobilinogen 0.2 E.U./dL Normal 0.2-1.0 [facility] Comment on above: Performed By: #### U A, UAMIC ####[place] [address] Urobilinogen (U) [Mass/Vol] Negative Normal Neg-Trace [facility] Comment on above: Performed By: #### U A, UAMIC ####[place] [address] UAMICon 03-09-2025 UA Bacteria Trace Abnormal Negative [facility] Comment on above: Performed By: #### U A, UAMIC ####[place] [address] UA Crenated RBCs Rare Abnormal [facility] Comment on above: Performed By: #### U A, UAMIC ####[place] [address] UA RBC 3-5 Abnormal 0-2 [facility] Comment on above: Performed By: #### U A, UAMIC ####[facility] [place] [address] UA Squam Epithelial Rare Normal 0-20 [facility] Comment on above: Performed By: #### U A, UAMIC ####[place] [address] UA WBC 3-5 Normal 0-5 [facility] Comment on above: Performed By: #### U A, UAMIC ####[place] [address] XR CHEST 1 VIEWon 03-09-2025 XR CHEST 1 VIEW Normal [facility] ED MED ADMINISTRATION DETAIL on 03-08-2025 ED MED ADMINISTRATION DETAIL Normal [facility] ED MED ADMINISTRATION DETAIL Normal [facility] ED NURSES CLINICAL NOTEon ED NURSES CLINICAL NOTE Normal [facility] ED NURSES CLINICAL NOTE Normal [facility] ED ORDER SHEET (CPOE ONLY)on 03-08-2025 ED ORDER SHEET (CPOE ONLY) Normal [facility] ED ORDER SHEET (CPOE ONLY) Normal [facility] ED PHYSICIAN CLINICAL REPORT on 03-08-2025 ED PHYSICIAN CLINICAL REPORT Normal [facility] ED PHYSICIAN CLINICAL REPORT Normal [facility] ED SUPER BILLon 03-08-2025 ED SUPER BILL Normal [facility] ED SUPER BILL Normal [facility] ED VISIT SUMMARYon ED VISIT SUMMARY Normal [facility] ED VISIT SUMMARY Normal [facility] ED VITALS FLOW SHEETon 03-08 ED VITALS FLOW SHEET Normal [facility] ED VITALS FLOW SHEET Normal [facility] URINE CULTURE [CCL]on 2024 Bacteria identified Cx Nom (U) Normal [facility] Comment on above: Performed By: #### 2 87650 ####[facility],[address] [place] [address] BMP with eGFRon 03-07-2025 AGE 34 years Normal [facility] Comment on above: Performed By: #### 2 50432 ####[facility],[address] [place] [address] Anion gap [Moles/Vol] 14 mmol/L Normal 10 - 20 [facility] Comment on above: Performed By: #### 2 77536 ####[facility],[address] [place] [address] BMP with eGFR Normal [facility] Comment on above: Result Comment: BASI C METABOLIC PANEL Performed By: #### 2 01739 ####[facility],[address] [place] [address] Calcium [Mass/Vol] 8.8 mg/dL Normal 8.5 - 10.1 [facility] Comment on above: Performed By: #### 2 78603 ####[facility],[address] [place] [address] Chloride [Moles/Vol] 105 mmol/L Normal 98 - 107 [facility] Comment on above: Performed By: #### 2 84578 ####[facility],[address] [place] [address] CO2 [Moles/Vol] 26.5 mmol/L Normal 21.0 - 32.0 [facility] Comment on above: Performed By: #### 2 11591 ####[facility],[address] [place] [address] Creatinine [Mass/Vol] 0.94 mg/dL Normal 0.55 - 1.02 [facility] Comment on above: Performed By: #### 2 48190 ####[facility],[address] [place] [address] GFR/1.73 sq M.predicted among non-blacks MDRD (S/P/Bld) [Vol rate/Area] mL/min/{1.73_m2} Normal 60 - 999 [facility] Comment on above: Performed By: #### 2 21115 ####[facility],[address] [place] [address] Result Comment: ACCO RDING TO THE NATIONAL KIDNEY DISEASE EDUCATION PROGRAM(NKDE), A NORMAL eGFRIS A VALUE GREATER THAN OR EQUAL TO 60 ML/MIN/1.73 SQ METERS.CHRONIC KIDNEY DISEASE: <60mL/MIN/1.73 SQ METERSKIDNEY FAILURE: <15mL/MIN/1.73 SQ METERSTHIS TEST SHOULD ONLY BE USED FOR PATIENTS 18 YEARS OF AGE AND OLDER. Glucose [Mass/Vol] 109 mg/dL High 74 - 106 [facility] Comment on above: Performed By: #### 2 49818 ####[facility],[address] [place] [address] Potassium [Moles/Vol] 3.7 mmol/L Normal 3.5 - 5.1 [facility] Comment on above: Performed By: #### 2 18144 ####[facility],[address] [place] [address] Sodium [Moles/Vol] 142 mmol/L Normal 136 - 145 [facility] Comment on above: Performed By: #### 2 45406 ####[facility],[address] [place], [place] [address] Urea nitrogen [Mass/Vol] 11 mg/dL Normal 7 - 18 [facility] Comment on above: Performed By: #### 2 14462 ####[facility],[address] [place] [address] CBC + DIFFon 03-07-2025 Baso # 0.04 x10EE3/UL Normal 0.00 - 0.10 [facility] Comment on above: Performed By: #### 2 16162 ####[facility],[address] [place], [place] [address] Basophils/100 WBC (Bld) 0.5 % Normal 0.0 - 2.0 [facility] Comment on above: Performed By: #### 2 96952 ####[facility],[address] [place] [address] CBC + DIFF Normal [facility] Comment on above: Result Comment: CBC- COMPLETE BLOOD COUNT Performed By: #### 2 84716 ####[facility],[address] [place] [address] EO # 0.19 x10EE3/UL Normal 0.00 - 0.50 [facility] Comment on above: Performed By: #### 2 94022 ####[facility],[address] [place], [place] [address] Eosinophils/100 WBC (Bld) 2.5 % Normal 0.0 - 7.0 [facility] Comment on above: Performed By: #### 2 91772 ####[facility],[address] [place] [address] Erythrocyte distribution width (RBC) [Ratio] 13.4 % Normal 12.0 - 15.6 [facility] Comment on above: Performed By: #### 2 05429 ####[facility],[address],[place] [address] Hematocrit (Bld) [Volume fraction] 36.1 % Normal 34.0 - 46.0 [facility] Comment on above: Performed By: #### 2 52853 ####[facility],[address] [place], [place] [address] Hemoglobin (Bld) [Mass/Vol] 12.4 g/dL Normal 12.0 - 16.0 [facility] Comment on above: Performed By: #### 2 99983 ####[facility],[address] [place] [address] Lymph # 2.18 x10EE3/UL Normal 0.80 - 2.80 [facility] Comment on above: Performed By: #### 2 24165 ####[facility],[address] [place], [place] [address] Lymphocytes/100 WBC (Bld) 27.9 % Normal 20.0 - 45.0 [facility] Comment on above: Performed By: #### 2 71016 ####[facility],[address] [place], [place] [address] MANUAL DIFF N/A Normal [facility] Comment on above: Performed By: #### 2 56631 ####[facility],[address] [place], [place] [address] MCH (RBC) [Entitic mass] 33 pg Normal 27 - 33 [facility] Comment on above: Performed By: #### 2 73536 ####[facility],[address] [place], [place] [address] MCHC 34 X10 3 Normal 32 - 36 [facility] Comment on above: Performed By: #### 2 52290 ####[facility],[address] [place] [address] MCV (RBC) [Entitic vol] 97 fL Normal 80 - 99 [facility] Comment on above: Performed By: #### 2 19157 ####[facility],[address],[place] [address] [place] # 0.67 x10EE3/UL Normal 0.20 - 1.00 [facility] Comment on above: Performed By: #### 2 35519 ####[facility],[address] [place] [address] MONOS % 8.5 % Normal 0.0 - 10.0 [facility] Comment on above: Performed By: #### 2 41739 ####[facility],[address] [place] [address] Morphology Efra (Bld) [Interp] N/A Normal [facility] Comment on above: Performed By: #### 2 41907 ####[facility],[address] [place] [address] Neut # 4.76 x10EE3/UL Normal 1.50 - 7.10 [facility] Comment on above: Performed By: #### 2 83976 ####[place] [address] Neutrophils/100 WBC (Bld) 60.8 % Normal 46.0 - 76.0 [facility] Comment on above: Performed By: #### 2 09629 ####[place] [address] PLATELET 367 x10EE3/UL Normal 150 - 450 [facility] Comment on above: Performed By: #### 2 33547 ####[place] [address] Platelet mean volume (Bld) [Entitic vol] 6.9 fL Normal 6.6 - 10.5 [facility] Comment on above: Result Comment: AUTO MATED DIFFERENTIAL Performed By: #### 2 28942 ####[place] [address] RBC 3.74 x 10EE6/UL Low 4.10 - 5.30 [facility] Comment on above: Performed By: #### 2 98855 ####[facility],[address] [place] [address] WBC 7.8 x 10EE3/UL Normal 4.5 - 10.8 [facility] Comment on above: Performed By: #### 2 89828 ####[facility],[address] [place] [address] ED MED ADMINISTRATION DETAIL on 03-07-2025 ED MED ADMINISTRATION DETAIL Normal [facility] ED NURSES CLINICAL NOTEon ED NURSES CLINICAL NOTE Normal [facility] ED ORDER SHEET (CPOE ONLY)on 03-07-2025 ED ORDER SHEET (CPOE ONLY) Normal [facility] ED PHYSICIAN CLINICAL REPORT on 03-07-2025 ED PHYSICIAN CLINICAL REPORT Normal [facility] ED SUPER BILLon 03-07-2025 ED SUPER BILL Normal [facility] ED VISIT SUMMARYon ED VISIT SUMMARY Normal [facility] ED VITALS FLOW SHEETon 03-07 ED VITALS FLOW SHEET Normal [facility] CMP with eGFRon 03-06-2025 AGE 34 years Normal [facility] Comment on above: Performed By: #### 2 86616 ####[facility],[address] [place] [address] Albumin [Mass/Vol] 3.5 g/dL Normal 3.4 - 5.0 [facility] Comment on above: Performed By: #### 2 32748 ####[facility],[address] [place] [address] Albumin/Globulin [Mass ratio] 1.2 {ratio} Normal 0.9 - 1.6 [facility] Comment on above: Performed By: #### 2 86638 ####[facility],[address] [place] [address] ALK PHOS 70 U/L Normal 46 - 116 [facility] Comment on above: Performed By: #### 2 67971 ####[facility],[address],[place] [address] ALT [Catalytic activity/Vol] 15 U/L Low 16 - 63 [facility] Comment on above: Performed By: #### 2 81905 ####[facility],[address] [place] [address] Anion gap [Moles/Vol] 11 mmol/L Normal 10 - 20 [facility] Comment on above: Performed By: #### 2 53189 ####[facility],[address] [place] [address] AST [Catalytic activity/Vol] 21 U/L Normal 13 - 39 [facility] Comment on above: Result Comment: NATHANIEL ANA LILIA SAMPLE;MANUAL DILUTION PERFORMED Performed By: #### 2 91539 ####[facility],[address] [place] [address] B/C RATIO 11 ratio Normal 0 - 30 [facility] Comment on above: Performed By: #### 2 13547 ####[facility],[address] [place], [place] [address] Bilirubin [Mass/Vol] 0.3 mg/dL Normal 0.2 - 1.0 [facility] Comment on above: Performed By: #### 2 61219 ####[facility],[address] [place], [place] [address] Calcium [Mass/Vol] 8.8 mg/dL Normal 8.5 - 10.1 [facility] Comment on above: Performed By: #### 2 01637 ####[facility],[address] [place], [place] [address] Chloride [Moles/Vol] 107 mmol/L Normal 98 - 107 [facility] Comment on above: Performed By: #### 2 97141 ####[facility],[address] [place], [place] [address] CMP with eGFR Normal [facility] Comment on above: Result Comment: COMP REHENSIVE METABOLIC PANEL Performed By: #### 2 52113 ####[facility],[address] [place] [address] CO2 [Moles/Vol] 24.2 mmol/L Normal 21.0 - 32.0 [facility] Comment on above: Performed By: #### 2 09314 ####[facility],[address] [place] [address] Creatinine [Mass/Vol] 1.03 mg/dL High 0.55 - 1.02 [facility] Comment on above: Performed By: #### 2 92712 ####[facility],[address] [place] [address] GFR/1.73 sq M.predicted among non-blacks MDRD (S/P/Bld) [Vol rate/Area] mL/min/{1.73_m2} Normal 60 - 999 [facility] Comment on above: Performed By: #### 2 39240 ####[facility],[address] [place] [address] Result Comment: ACCO RDING TO THE NATIONAL KIDNEY DISEASE EDUCATION PROGRAM(NKDE), A NORMAL eGFRIS A VALUE GREATER THAN OR EQUAL TO 60 ML/MIN/1.73 SQ METERS.CHRONIC KIDNEY DISEASE: <60mL/MIN/1.73 SQ METERSKIDNEY FAILURE: <15mL/MIN/1.73 SQ METERSTHIS TEST SHOULD ONLY BE USED FOR PATIENTS 18 YEARS OF AGE AND OLDER. Globulin (S) [Mass/Vol] 2.9 g/dL Normal 1.5 - 3.8 [facility] Comment on above: Performed By: #### 2 69280 ####[facility],[address] [place] [address] Glucose [Mass/Vol] 111 mg/dL High 74 - 106 [facility] Comment on above: Performed By: #### 2 10244 ####[facility],[address] [place] [address] Potassium [Moles/Vol] 3.6 mmol/L Normal 3.5 - 5.1 [facility] Comment on above: Performed By: #### 2 28230 ####[facility],[address] [place] [address] Protein [Mass/Vol] 6.4 g/dL Normal 6.4 - 8.2 [facility] Comment on above: Performed By: #### 2 09343 ####[facility],[address] [place] [address] Sodium [Moles/Vol] 139 mmol/L Normal 136 - 145 [facility] Comment on above: Performed By: #### 2 35795 ####[facility],[address] [place] [address] Urea nitrogen [Mass/Vol] 11 mg/dL Normal 7 - 18 [facility] Comment on above: Performed By: #### 2 17506 ####[facility],[address] [place] [address] 96749 CBC + DIFFon 03-05-2025 Baso # 0.03 x10EE3/UL Normal 0.00 - 0.10 [facility] Comment on above: Performed By: #### 2 57972 ####[facility],[address] [place] [address] 76652 Basophils/100 WBC (Bld) 0.3 % Normal 0.0 - 2.0 [facility] Comment on above: Performed By: #### 2 71774 ####[facility],[address] [place] [address] 27696 CBC + DIFF Normal [facility] Comment on above: Result Comment: CBC- COMPLETE BLOOD COUNT Performed By: #### 2 09907 ####[facility],[address] [place] [address] 92634 EO # 0.28 x10EE3/UL Normal 0.00 - 0.50 [facility] Comment on above: Performed By: #### 2 41001 ####[facility],[address] [place] [address] 65282 Eosinophils/100 WBC (Bld) 3.0 % Normal 0.0 - 7.0 [facility] Comment on above: Performed By: #### 2 95728 ####[facility],[address] [place] [address] Erythrocyte distribution width (RBC) [Ratio] 13.4 % Normal 12.0 - 15.6 [facility] Comment on above: Performed By: #### 2 12421 ####[facility],[address] [place] [address] Hematocrit (Bld) [Volume fraction] 38.4 % Normal 34.0 - 46.0 [facility] Comment on above: Performed By: #### 2 63648 ####[facility],[address] [place] [address] Hemoglobin (Bld) [Mass/Vol] 13.7 g/dL Normal 12.0 - 16.0 [facility] Comment on above: Performed By: #### 2 17766 ####[facility],[address] [place] [address] Lymph # 2.75 x10EE3/UL Normal 0.80 - 2.80 [facility] Comment on above: Performed By: #### 2 55308 ####[facility],[address] [place] [address] Lymphocytes/100 WBC (Bld) 30.0 % Normal 20.0 - 45.0 [facility] Comment on above: Performed By: #### 2 95643 ####[facility],[address] [place], [place] [phone] MANUAL DIFF N/A Normal [facility] Comment on above: Performed By: #### 2 99538 ####[place] [id number] MCH (RBC) [Entitic mass] 34 pg High 27 - 33 [facility] Comment on above: Performed By: #### 2 88795 ####[facility],[address] [place] [address] MCHC 36 X10 3 Normal 32 - 36 [facility] Comment on above: Performed By: #### 2 51761 ####[facility],[address] [place] [address] 90807 MCV (RBC) [Entitic vol] 95 fL Normal 80 - 99 [facility] Comment on above: Performed By: #### 2 21375 ####[facility],[address] [place] [address] [place] # 0.71 x10EE3/UL Normal 0.20 - 1.00 [facility] Comment on above: Performed By: #### 2 81417 ####[facility],[address] [place] [address] 92977 MONOS % 7.7 % Normal 0.0 - 10.0 [facility] Comment on above: Performed By: #### 2 24408 ####[facility],[address] [place], [place] [phone] Morphology Efra (Bld) [Interp] N/A Normal [facility] Comment on above: Performed By: #### 2 21901 ####[facility],[address] [place] [address] 64684 Neut # 5.41 x10EE3/UL Normal 1.50 - 7.10 [facility] Comment on above: Performed By: #### 2 44527 ####[facility],[address] [place] [address] 00303 Neutrophils/100 WBC (Bld) 59.0 % Normal 46.0 - 76.0 [facility] Comment on above: Performed By: #### 2 51870 ####[facility],[address] [place] [address] 22389 PLATELET 347 x10EE3/UL Normal 150 - 450 [facility] Comment on above: Performed By: #### 2 91061 ####[facility],[address] [place] [address] 52846 Platelet mean volume (Bld) [Entitic vol] 6.8 fL Normal 6.6 - 10.5 [facility] Comment on above: Result Comment: AUTO MATED DIFFERENTIAL Performed By: #### 2 72842 ####[facility],[address] [place] [address] RBC 4.05 x 10EE6/UL Low 4.10 - 5.30 [facility] Comment on above: Performed By: #### 2 82278 ####[facility],[address] [place] [address] WBC 9.2 x 10EE3/UL Normal 4.5 - 10.8 [facility] Comment on above: Performed By: #### 2 04073 ####[facility],[address] [place] [address] CT KUB (KIDNEY STONE PROTOCO L)on 03-05-2025 CT KUB (KIDNEY STONE PROTOCOL) Normal [facility] LACTATEon 03-05-2025 Lactate [Moles/Vol] 1.5 mmol/L Normal 0.4 - 2.0 [facility] Comment on above: Performed By: #### 2 30016 ####[facility],[address] [place] [address] URINALYSISon 03-05-2025 Amorphous 1+ Normal [facility] Comment on above: Performed By: #### 2 71105 ####[facility],[address] [place] [address] Bacteria 3+ Normal [facility] Comment on above: Performed By: #### 2 27464 ####[facility],[address] [place] [address] Bilirubin Ql (U) Negative Normal NORMAL: NEGATIVE [facility] Comment on above: Performed By: #### 2 01583 ####[facility],[address] [place] [address] Casts NONE Normal [facility] Comment on above: Performed By: #### 2 58715 ####[facility],[address] [place] [address] Clarity (U) sl.cloudy Normal NORMAL: CLEAR [facility] Comment on above: Performed By: #### 2 02110 ####[facility],[address] [place], [place] [phone] Color (U) p.yel Normal NORMAL: YELLOW [facility] Comment on above: Performed By: #### 2 77048 ####[facility],[address] [place], [place] [phone] Crystals LM Nom (Urine sed) NONE Normal [facility] Comment on above: Performed By: #### 2 12771 ####[facility],[address] [place], [place] [phone] Epi Cells FEW Normal [facility] Comment on above: Performed By: #### 2 29882 ####[facility],[address] [place], [place] [address] Glucose Ql (U) NORM Normal NORMAL: NORMAL [facility] Comment on above: Performed By: #### 2 57492 ####[facility],[address] [place] [address] 11408 Hemoglobin Ql (U) 50 Abnormal NORMAL: NEGATIVE [facility] Comment on above: Performed By: #### 2 09119 ####[facility],[address] [place] [address] 69018 Ketone Negative Normal NORMAL: NEGATIVE [facility] Comment on above: Performed By: #### 2 15326 ####[facility],[address] [place] [address] 90706 Leukocytes 500 Abnormal NORMAL: NEGATIVE [facility] Comment on above: Performed By: #### 2 86136 ####[facility],[address] [place] [address] 00408 Mucous NONE Normal [facility] Comment on above: Performed By: #### 2 52721 ####[facility],[address] [place] [address] 01402 Nitrite Ql (U) Negative Normal NORMAL: NEGATIVE [facility] Comment on above: Performed By: #### 2 73953 ####[facility],[address] [place] [address] pH (U) 7 [pH] Normal NORMAL: 5.0-8.0 [facility] Comment on above: Performed By: #### 2 50735 ####[facility],[address] [place] [address] Protein Ql (U) 30 Abnormal NORMAL: NEGATIVE [facility] Comment on above: Performed By: #### 2 52559 ####[facility],[address] [place] [address] Rbc 0-5 Normal 0-3/hpf [facility] Comment on above: Performed By: #### 2 81703 ####[facility],[address] [place] [address] 1.010 Normal NORMAL: 1.010-1.030 [facility] Comment on above: Performed By: #### 2 90040 ####[facility],[address] [place] [address] Specimen Type R Normal [facility] Comment on above: Performed By: #### 2 77915 ####[facility],[address] [place] [address] Urinalysis dipstick W Reflex Microscopic panel (U) SEE BELOW Normal [facility] Comment on above: Result Comment: MICR OSCOPIC Performed By: #### 2 82507 ####[facility],[address] [place], [place] [phone] Urobilinog NORM Normal NORMAL: NORMAL [facility] Comment on above: Performed By: #### 2 25347 ####[facility],[address] [place] [address] Wbc 26-50 Normal 0-5/hpf [facility] Comment on above: Performed By: #### 2 98889 ####[facility],[address] [place] [address] 22594 Yeast NONE Normal [facility] Comment on above: Performed By: #### 2 90477 ####[facility],[address] [place] [address] 18977 .Auto Diffon 02-16-2025 Basophil, Absolute 0.1 10 3/mcL Normal 0.0-0.3 [facility] Comment on above: Performed By: #### A DIFF, CBC, BMP, ANEU, GFR ####[address] [address] Basophils/100 WBC (Bld) 0.7 % Normal 0.0-2.5 [facility] Comment on above: Performed By: #### A DIFF, CBC, BMP, ANEU, GFR ####[address] [address] Eosinophil, Absolute 0.3 10 3/mcL Normal 0.0-0.[address] [facility] Comment on above: Performed By: #### A DIFF, CBC, BMP, ANEU, GFR ####[address] [address] Eosinophils/100 WBC (Bld) 4.1 % Normal 0.0-6.0 [facility] Comment on above: Performed By: #### A DIFF, CBC, BMP, ANEU, GFR ####[address] [address] Lymphocyte, Absolute 2.1 10 3/mcL Normal 0.9-4.[address] [facility] Comment on above: Performed By: #### A DIFF, CBC, BMP, ANEU, GFR ####[address] [address] Lymphocytes/100 WBC (Bld) 28.4 % Normal 20.0-40.0 [facility] Comment on above: Performed By: #### A DIFF, CBC, BMP, ANEU, GFR ####[address] [address] Monocyte, Absolute 0.6 10 3/mcL Normal 0.1-1.4 [facility] Comment on above: Performed By: #### A DIFF, CBC, BMP, ANEU, GFR ####[place] [id number] [address] [place] [address] 99753 Monocytes/100 WBC (Bld) 8.2 % Normal 2.0-13.0 [facility] Comment on above: Performed By: #### A DIFF, CBC, BMP, ANEU, GFR ####[address] [address] Neutrophils/100 WBC (Bld) 58.6 % Normal 50.0-75.0 [facility] Comment on above: Performed By: #### A DIFF, CBC, BMP, ANEU, GFR ####[address] [address] .GFRon 02-16-2025 Estimated Glomerular Filtration Rate 98 ml/min/1.73sqm Normal [facility] Comment on above: Result [...] #### A DIFF, CBC, BMP, ANEU, GFR ####[address] [address] .NEUABSon 02-16-2025 Neutrophil, Absolute 4.3 10 3/mcL Normal 2.3-8.[address] [facility] Comment on above: Performed By: #### A DIFF, CBC, BMP, ANEU, GFR ####[address] [address] BMPon 02-16-2025 BUN/Creatinine Ratio 8.8 ratio Low 10.0-22.0 [facility] Comment on above: Order Comment: hemol yzed 02/16/2025 07:26:12 EDT Performed By: #### A DIFF, CBC, BMP, ANEU, GFR ####[address] [address] Calcium [Mass/Vol] 10.0 mg/dL Normal 8.7-10.4 [facility] Comment on above: Order Comment: hemol yzed 02/16/2025 07:26:12 EDT Performed By: #### A DIFF, CBC, BMP, ANEU, GFR ####[address] [address] Chloride [Moles/Vol] 106 mmol/L Normal 98-110 [facility] Comment on above: Order Comment: hemol yzed 02/16/2025 07:26:12 EDT Performed By: #### A DIFF, CBC, BMP, ANEU, GFR ####[address] [address] CO2 [Moles/Vol] 27 mmol/L Normal 22-32 [facility] Comment on above: Order Comment: hemol yzed 02/16/2025 07:26:12 EDT Performed By: #### A DIFF, CBC, BMP, ANEU, GFR ####[address] [address] Creatinine [Mass/Vol] 0.80 mg/dL Normal 0.50-1.20 [facility] Comment on above: Order Comment: hemol yzed 02/16/2025 07:26:12 EDT Result Comment: Test ing performed on Cortexica analyzer using enzymatic creatinine methodology. Performed By: #### A DIFF, CBC, BMP, ANEU, GFR ####[address] [address] Electrolyte Balance 5.0 mEq/L Normal 4.0-15.0 [facility] Comment on above: Order Comment: hemol yzed 02/16/2025 07:26:12 EDT Performed By: #### A DIFF, CBC, BMP, ANEU, GFR ####[address] [address] Glucose [Mass/Vol] 89 mg/dL Normal 70-110 [facility] Comment on above: Order Comment: hemol yzed 02/16/2025 07:26:12 EDT Performed By: #### A DIFF, CBC, BMP, ANEU, GFR ####[place] [address] Potassium [Moles/Vol] 3.7 mmol/L Normal 3.5-5.0 [facility] Comment on above: Order Comment: hemol yzed 02/16/2025 07:26:12 EDT Performed By: #### A DIFF, CBC, BMP, ANEU, GFR ####[place] [address] Sodium [Moles/Vol] 138 mmol/L Normal 136-145 [facility] Comment on above: Order Comment: hemol yzed 02/16/2025 07:26:12 EDT Performed By: #### A DIFF, CBC, BMP, ANEU, GFR ####[place] [address] Urea nitrogen [Mass/Vol] 7.0 mg/dL Low 8.0-22.0 [facility] Comment on above: Order Comment: hemol yzed 02/16/2025 07:26:12 EDT Performed By: #### A DIFF, CBC, BMP, ANEU, GFR ####[place] [address] CBCon 02-16-2025 Erythrocyte distribution width (RBC) [Ratio] 14.1 % Normal 11.5-15.5 [facility] Comment on above: Performed By: #### A DIFF, CBC, BMP, ANEU, GFR ####[place] [address] Hematocrit (Bld) [Volume fraction] 43.1 % Normal 34.0-46.0 [facility] Comment on above: Performed By: #### A DIFF, CBC, BMP, ANEU, GFR ####[place] [address] Hgb 14.6 G/dL Normal 12.0-16.0 [facility] Comment on above: Performed By: #### A DIFF, CBC, BMP, ANEU, GFR ####[place] [address] MCH (RBC) [Entitic mass] 32.9 pg Normal 27.0-33.0 [facility] Comment on above: Performed By: #### A DIFF, CBC, BMP, ANEU, GFR ####[place] [address] MCHC 33.9 G/dL Normal 32.0-36.0 [facility] Comment on above: Performed By: #### A DIFF, CBC, BMP, ANEU, GFR ####[place] [address] MCV (RBC) [Entitic vol] 97.2 fL Normal 80.0-99.0 [facility] Comment on above: Performed By: #### A DIFF, CBC, BMP, ANEU, GFR ####[place] [address] Platelet 296 10 3/mcL Normal 150-450 [facility] Comment on above: Performed By: #### A DIFF, CBC, BMP, ANEU, GFR ####[place] [address] Platelet mean volume (Bld) [Entitic vol] 7.5 fL Normal 6.6-10.5 [facility] Comment on above: Performed By: #### A DIFF, CBC, BMP, ANEU, GFR ####[place] [address] RBC 4.44 10 6/mcL Normal 4.10-5.30 [facility] Comment on above: Performed By: #### A DIFF, CBC, BMP, ANEU, GFR ####[place] [address] WBC 7.3 10 3/mcL Normal 4.5-10.8 [facility] Comment on above: Performed By: #### A DIFF, CBC, BMP, ANEU, GFR ####[place] [address] IR NEPHROSTOMY EXCHANGEon IR NEPHROSTOMY EXCHANGE Normal [facility] MA[facility] LABORATORYOrdered By: SYSTEM SYSTEM on 02-16-2025 [...] above: Interpretive Data: T esting performed on Cortexica analyzer using enzymatic creatinine methodology. Electrolyte Balance [...] 0.7 10^3/mcL Workflow SS Eosinophils/100 WBC (Bld) 4.1 % [...] test) Ql (U) Negative (02/16/25 6:58 AM) [facility] Work Phone: CBC + DIFFon 02-10-2025 Baso # 0.03 x10EE3/UL Normal 0.00 - 0.10 [facility] Comment on above: Performed By: #### 2 29913 ####[facility],[address] [place] [address] 45094 Basophils/100 WBC (Bld) 0.3 % Normal 0.0 - 2.0 [facility] Comment on above: Performed By: #### 2 10202 ####[facility],[address] [place] [address] 40661 CBC + DIFF Normal [facility] Comment on above: Result Comment: CBC- COMPLETE BLOOD COUNT Performed By: #### 2 01869 ####[facility],[address] [place] [address] 77558 EO # 0.11 x10EE3/UL Normal 0.00 - 0.50 [facility] Comment on above: Performed By: #### 2 43058 ####[facility],[address] [place] [address] 82468 Eosinophils/100 WBC (Bld) 1.1 % Normal 0.0 - 7.0 [facility] Comment on above: Performed By: #### 2 22918 ####[facility],[address] [place] [address] 21927 Erythrocyte distribution width (RBC) [Ratio] 13.3 % Normal 12.0 - 15.6 [facility] Comment on above: Performed By: #### 2 54965 ####[facility],[address] [place] [address] 84727 Hematocrit (Bld) [Volume fraction] 41.1 % Normal 34.0 - 46.0 [facility] Comment on above: Performed By: #### 2 79666 ####[facility],[address] [place] [address] 45159 Hemoglobin (Bld) [Mass/Vol] 14.7 g/dL Normal 12.0 - 16.0 [facility] Comment on above: Performed By: #### 2 26679 ####[facility],[address] [place] [address] Lymph # 3.18 x10EE3/UL High 0.80 - 2.80 [facility] Comment on above: Performed By: #### 2 76684 ####[facility],[address] [place] [address] Lymphocytes/100 WBC (Bld) 29.2 % Normal 20.0 - 45.0 [facility] Comment on above: Performed By: #### 2 68809 ####[facility],[address] [place], [place] [address] MANUAL DIFF N/A Normal [facility] Comment on above: Performed By: #### 2 45578 ####[facility],[address] [place] [address] MCH (RBC) [Entitic mass] 34 pg High 27 - 33 [facility] Comment on above: Performed By: #### 2 00199 ####[facility],[address] [place] [address] MCHC 36 X10 3 Normal 32 - 36 [facility] Comment on above: Performed By: #### 2 25891 ####[facility],[address] [place] [address] 79188 MCV (RBC) [Entitic vol] 96 fL Normal 80 - 99 [facility] Comment on above: Performed By: #### 2 89569 ####[facility],[address] [place] [address] [place] # 0.64 x10EE3/UL Normal 0.20 - 1.00 [facility] Comment on above: Performed By: #### 2 71797 ####[facility],[address] [place] [address] MONOS % 5.9 % Normal 0.0 - 10.0 [facility] Comment on above: Performed By: #### 2 00313 ####[facility],[address] [place] [address]105 Morphology Efra (Bld) [Interp] N/A Normal [facility] Comment on above: Performed By: #### 2 81737 ####[facility],[address] [place] [address] 16225 Neut # 6.90 x10EE3/UL Normal 1.50 - 7.10 [facility] Comment on above: Performed By: #### 2 92958 ####[facility],[address] [place] [address] 65975 Neutrophils/100 WBC (Bld) 63.5 % Normal 46.0 - 76.0 [facility] Comment on above: Performed By: #### 2 65553 ####[facility],[address] [place] [address] 47852 PLATELET 320 x10EE3/UL Normal 150 - 450 [facility] Comment on above: Performed By: #### 2 39263 ####[facility],[address] [place] [address] 31438 Platelet mean volume (Bld) [Entitic vol] 6.6 fL Normal 6.6 - 10.5 [facility] Comment on above: Result Comment: AUTO MATED DIFFERENTIAL Performed By: #### 2 71383 ####[facility],[address] [place] [address] 37725 RBC 4.29 x 10EE6/UL Normal 4.10 - 5.30 [facility] Comment on above: Performed By: #### 2 09632 ####[facility],[address] [place] [address] 01136 WBC 10.9 x 10EE3/UL High 4.5 - 10.8 [facility] Comment on above: Performed By: #### 2 47236 ####[facility],[address] [place] [address] 79175 CMP with eGFRon 02-10-2025 AGE 34 years Normal [facility] Comment on above: Performed By: #### 2 98836 ####[facility],[address] [place] [address] 05528 Albumin [Mass/Vol] 4.0 g/dL Normal 3.4 - 5.0 [facility] Comment on above: Performed By: #### 2 26684 ####[facility],[address] [place], [place] [address] Albumin/Globulin [Mass ratio] 1.3 {ratio} Normal 0.9 - 1.6 [facility] Comment on above: Performed By: #### 2 06167 ####[facility],[address] [place] [address] 92985 ALK PHOS 73 U/L Normal 46 - 116 [facility] Comment on above: Performed By: #### 2 58630 ####[facility],[address] [place] [address] 22856 ALT [Catalytic activity/Vol] 13 U/L Low 16 - 63 [facility] Comment on above: Performed By: #### 2 82796 ####[facility],[address] [place] [address]646 Anion gap [Moles/Vol] 17 mmol/L Normal 10 - 20 [facility] Comment on above: Performed By: #### 2 89143 ####[facility],[address] [place] [address] 38014 AST [Catalytic activity/Vol] 11 U/L Low 13 - 39 [facility] Comment on above: Performed By: #### 2 75278 ####[facility],[address] [place] [address] 20754 B/C RATIO 12 ratio Normal 0 - 30 [facility] Comment on above: Performed By: #### 2 03598 ####[facility],[address] [place] [address]60 Bilirubin [Mass/Vol] 0.6 mg/dL Normal 0.2 - 1.0 [facility] Comment on above: Performed By: #### 2 15171 ####[facility],[address] [place] [address] Calcium [Mass/Vol] 9.5 mg/dL Normal 8.5 - 10.1 [facility] Comment on above: Performed By: #### 2 94592 ####[facility],[address] [place] [address] Chloride [Moles/Vol] 100 mmol/L Normal 98 - 107 [facility] Comment on above: Performed By: #### 2 21903 ####[facility],[address] [place] [address] CMP with eGFR Normal [facility] Comment on above: Result Comment: COMP REHENSIVE METABOLIC PANEL Performed By: #### 2 01585 ####[facility],[address] [place] [address] CO2 [Moles/Vol] 25.6 mmol/L Normal 21.0 - 32.0 [facility] Comment on above: Performed By: #### 2 92239 ####[facility],[address] [place] [address] Creatinine [Mass/Vol] 1.10 mg/dL High 0.55 - 1.02 [facility] Comment on above: Performed By: #### 2 96115 ####[facility],[address] [place] [address] eGFR 56 ML/MINUTE Low 60 - 999 [facility] Comment on above: Performed By: #### 2 13296 ####[address] [address] GFR/1.73 sq M.predicted among non-blacks MDRD (S/P/Bld) [Vol rate/Area] mL/min/{1.73_m2} Normal 60 - 999 [facility] Comment on above: Result Comment: ACCO RDING TO THE NATIONAL KIDNEY DISEASE EDUCATION PROGRAM(NKDE), A NORMAL eGFRIS A VALUE GREATER THAN OR EQUAL TO 60 ML/MIN/1.73 SQ METERS.CHRONIC KIDNEY DISEASE: <60mL/MIN/1.73 SQ METERSKIDNEY FAILURE: <15mL/MIN/1.73 SQ METERSTHIS TEST SHOULD ONLY BE USED FOR PATIENTS 18 YEARS OF AGE AND OLDER. Performed By: #### 2 85173 ####[address] [address] Globulin (S) [Mass/Vol] 3.2 g/dL Normal 1.5 - 3.8 [facility] Comment on above: Performed By: #### 2 80848 ####[address] [address] Glucose [Mass/Vol] 72 mg/dL Low 74 - 106 [facility] Comment on above: Performed By: #### 2 [id number] ####[address] [address] Potassium [Moles/Vol] 3.4 mmol/L Low 3.5 - 5.1 [facility] [place] [facility] Comment on above: Performed By: #### 2 06908 ####[address] [address] Protein [Mass/Vol] 7.2 g/dL Normal 6.4 - 8.2 [facility] Comment on above: Performed By: #### 2 89779 ####[facility],[address] [place] [address] Sodium [Moles/Vol] 139 mmol/L Normal 136 - 145 [facility] Comment on above: Performed By: #### 2 40663 ####[address] [address] Urea nitrogen [Mass/Vol] 13 mg/dL Normal 7 - 18 [facility] Comment on above: Performed By: #### 2 57172 ####[address] [address] [address] ABDOMEN/PELVIS WOon 02-10 CT ABDOMEN/PELVIS WO Normal [facility] ED MED ADMINISTRATION DETAIL on 02-10-2025 ED MED ADMINISTRATION DETAIL Normal [facility] ED NURSES CLINICAL NOTEon ED NURSES CLINICAL NOTE Normal [facility] ED ORDER SHEET (CPOE ONLY)on 02-10-2025 ED ORDER SHEET (CPOE ONLY) Normal [facility] ED PHYSICIAN CLINICAL REPORT on 02-10-2025 ED PHYSICIAN CLINICAL REPORT Normal [facility] ED SUPER BILLon 02-10-2025 ED SUPER BILL Normal [facility] ED VISIT SUMMARYon ED VISIT SUMMARY Normal [facility] ED VITALS FLOW SHEETon 02-10 ED VITALS FLOW SHEET Normal [facility] LACTATEon 02-10-2025 Lactate [Moles/Vol] 0.7 mmol/L Normal 0.4 - 2.0 [facility] Comment on above: Performed By: #### 2 77449 ####[facility],[address] [place] [address] URINALYSISon 02-10-2025 Amorphous NONE Normal [facility] Comment on above: Performed By: #### 2 74851 ####[facility],[address] [place] [address] Bacteria 3+ Normal [facility] Comment on above: Performed By: #### 2 60719 ####[facility],[address] [place] [address] Bilirubin Ql (U) Negative Normal NORMAL: NEGATIVE [facility] Comment on above: Performed By: #### 2 58676 ####[facility],[address] [place] [address] Casts NONE Normal [facility] Comment on above: Performed By: #### 2 61512 ####[facility],[address] [place] [address] Clarity (U) sl.cloudy Normal NORMAL: CLEAR [facility] Comment on above: Performed By: #### 2 31839 ####[facility],[address] [place] [address] Color (U) yellow Normal NORMAL: YELLOW [facility] Comment on above: Performed By: #### 2 25775 ####[facility],[address] [place] [address]337 Crystals LM Nom (Urine sed) NONE Normal [facility] Comment on above: Performed By: #### 2 33605 ####[facility],[address] [place] [address]48 Epi Cells OCC Normal [facility] Comment on above: Performed By: #### 2 41953 ####[facility],[address] [place] [address] Glucose Ql (U) NORM Normal NORMAL: NORMAL [facility] Comment on above: Performed By: #### 2 29099 ####[facility],[address] [place] [address]008 Hemoglobin Ql (U) 250 Abnormal NORMAL: NEGATIVE [facility] Comment on above: Performed By: #### 2 87009 ####[facility],[address] [place] [address]76 Ketone Negative Normal NORMAL: NEGATIVE [facility] Comment on above: Performed By: #### 2 93166 ####[facility],[address] [place] [address] Leukocytes 500 Abnormal NORMAL: NEGATIVE [facility] Comment on above: Performed By: #### 2 55970 ####[facility],[address] [place] [address] Mucous NONE Normal [facility] Comment on above: Performed By: #### 2 66207 ####[facility],[address] [place] [address] Nitrite Ql (U) Negative Normal NORMAL: NEGATIVE [facility] Comment on above: Performed By: #### 2 69865 ####[facility],[address] [place] [address] pH (U) 8 [pH] Normal NORMAL: 5.0-8.0 [facility] Comment on above: Performed By: #### 2 11898 ####[facility],[address] [place] [address] Protein Ql (U) 100 Abnormal NORMAL: NEGATIVE [facility] Comment on above: Performed By: #### 2 14017 ####[facility],[address] [place] [address] Rbc TNTC Normal 0-3/hpf [facility] Comment on above: Performed By: #### 2 85696 ####[facility],[address] [place] [address] 1.015 Normal NORMAL: 1.010-1.030 [facility] Comment on above: Performed By: #### 2 08306 ####[facility],[address] [place] [address] Specimen Type R Normal [facility] Comment on above: Performed By: #### 2 43892 ####[facility],[address] [place] [address] Urinalysis dipstick W Reflex Microscopic panel (U) SEE BELOW Normal [facility] Comment on above: Result Comment: MICR OSCOPIC Performed By: #### 2 29633 ####[facility],[address] [place] [address] Urobilinog NORM Normal NORMAL: NORMAL [facility] Comment on above: Performed By: #### 2 96529 ####[facility],[address] [place] [address] WBC (U) [#/Vol] /uL Normal 0-5/hpf [facility] Comment on above: Performed By: #### 2 62163 ####[facility],[address] [place] [address] Yeast NONE Normal [facility] Comment on above: Performed By: #### 2 12131 ####[facility],[address] [place] [address] Amorphous NONE Normal [facility] Comment on above: Performed By: #### 2 13689 ####[facility],[address] [place] [address] Bacteria TRACE Normal [facility] Comment on above: Performed By: #### 2 89808 ####[facility],[address] [place] [address] Bilirubin Ql (U) Negative Normal NORMAL: NEGATIVE [facility] Comment on above: Performed By: #### 2 73760 ####[facility],[address] [place] [address] Casts NONE Normal [facility] Comment on above: Performed By: #### 2 46516 ####[facility],[address] [place] [address] Clarity (U) sl.cloudy Normal NORMAL: CLEAR [facility] Comment on above: Performed By: #### 2 17959 ####[facility],[address] [place] [address] Color (U) alanna Normal NORMAL: YELLOW [facility] Comment on above: Performed By: #### 2 35350 ####[facility],[address] [place] [address] Crystals LM Nom (Urine sed) NONE Normal [facility] Comment on above: Performed By: #### 2 04300 ####[facility],[address] [place] [address] Epi Cells MANY Normal [facility] Comment on above: Performed By: #### 2 52380 ####[facility],[address] [place] [address] Glucose Ql (U) NORM Normal NORMAL: NORMAL [facility] Comment on above: Performed By: #### 2 00782 ####[facility],[address] [place] [address] Hemoglobin Ql (U) 25 Abnormal NORMAL: NEGATIVE [facility] Comment on above: Performed By: #### 2 31182 ####[facility],[address] [place] [address] Ketone Negative Normal NORMAL: NEGATIVE [facility] Comment on above: Performed By: #### 2 71398 ####[facility],[address] [place] [address] Leukocytes Negative Normal NORMAL: NEGATIVE [facility] Comment on above: Performed By: #### 2 30859 ####[facility],[address] [place] [address] Mucous NONE Normal [facility] Comment on above: Performed By: #### 2 45695 ####[facility],[address] [place] [address] Nitrite Ql (U) Negative Normal NORMAL: NEGATIVE [facility] Comment on above: Performed By: #### 2 12478 ####[facility],[address] [place] [address] pH (U) 5 [pH] Normal NORMAL: 5.0-8.0 [facility] Comment on above: Performed By: #### 2 23366 ####[facility],[address] [place] [address] Protein Ql (U) 30 Abnormal NORMAL: NEGATIVE [facility] Comment on above: Performed By: #### 2 08950 ####[facility],[address] [place] [address] Rbc 0-5 Normal 0-3/hpf [facility] Comment on above: Performed By: #### 2 94366 ####[facility],[address] [place] [address] [address] 1.025 Normal NORMAL: 1.010-1.030 [facility] Comment on above: Performed By: #### 2 99359 ####[facility],[address] [place] [address] Specimen Type R Normal [facility] Comment on above: Performed By: #### 2 88594 ####[facility],[address] [place], [place] [address] Urinalysis dipstick W Reflex Microscopic panel (U) SEE BELOW Normal [facility] Comment on above: Result Comment: MICR OSCOPIC Performed By: #### 2 87452 ####[facility],[address] [place] [address] Urobilinog 1 Abnormal NORMAL: NORMAL [facility] Comment on above: Performed By: #### 2 05056 ####[facility],[address] [place] [address] Wbc 1-5 Normal 0-5/hpf [facility] Comment on above: Performed By: #### 2 15243 ####[facility],[address] [place], [place] [address] Yeast NONE Normal [facility] Comment on above: Performed By: #### 2 51274 ####[facility],[address] [place], [place] [address] URINE CULTURE [CCL]on 2024 Bacteria identified Cx Nom (U) Normal [facility] Comment on above: Performed By: #### 2 77374 ####[facility],[address] [place], [place] [address] Bacteria identified Cx Nom (U) Normal [facility] Comment on above: Performed By: #### 2 30835 ####[facility],[address] [place] [address] URINE CULTURE [CCL]on 2024 Bacteria identified Cx Nom (U) Normal [facility] Comment on above: Performed By: #### 2 48197 ####[facility],[address] [place], [place] [address] CBC + DIFFon 01-29-2025 BANDS 2 % Normal 0 - 5 [facility] Comment on above: Performed By: #### 2 95913 ####[facility],[address] [place] [address] Baso # 0.04 x10EE3/UL Normal 0.00 - 0.10 [facility] Comment on above: Performed By: #### 2 00930 ####[facility],[address] [place] [address] Basophils/100 WBC (Bld) 0.2 % Normal 0.0 - 2.0 [facility] Comment on above: Performed By: #### 2 95965 ####[facility],[address] [place] [address] CBC + DIFF Normal [facility] Comment on above: Result Comment: CBC- COMPLETE BLOOD COUNT Performed By: #### 2 82106 ####[facility],[address] [place] [address] EO # 0.12 x10EE3/UL Normal 0.00 - 0.50 [facility] Comment on above: Performed By: #### 2 59882 ####[facility],[address] [place] [address] Eosinophils/100 WBC (Bld) 0.7 % Normal 0.0 - 7.0 [facility] Comment on above: Performed By: #### 2 96494 ####[facility],[address] [place] [address] Erythrocyte distribution width (RBC) [Ratio] 13.6 % Normal 12.0 - 15.6 [facility] Comment on above: Performed By: #### 2 85449 ####[facility],[address] [place] [address] Hematocrit (Bld) [Volume fraction] 43.6 % Normal 34.0 - 46.0 [facility] Comment on above: Performed By: #### 2 74402 ####[facility],[address] [place], [place] [address] Hemoglobin (Bld) [Mass/Vol] 15.2 g/dL Normal 12.0 - 16.0 [facility] Comment on above: Performed By: #### 2 00632 ####[facility],[address] [place], [place] [address] Lymph # 0.83 x10EE3/UL Normal 0.80 - 2.80 [facility] Comment on above: Performed By: #### 2 58261 ####[facility],[address] [place], [place] [address] Lymphocytes/100 WBC (Bld) 4.8 % Low 20.0 - 45.0 [facility] Comment on above: Performed By: #### 2 78978 ####[facility],[address] [place], [place] [address] Lymphocytes/100 WBC (Bld) 4 % Low 20 - 45 [facility] Comment on above: Performed By: #### 2 87857 ####[facility],[address] [place] [address] MANUAL DIFF SEE BELOW Normal [facility] Comment on above: Performed By: #### 2 11374 ####[facility],[address] [place] [address] 19895 MCH (RBC) [Entitic mass] 34 pg High 27 - 33 [facility] Comment on above: Performed By: #### 2 72405 ####[facility],[address] [place] [address] 08908 MCHC 35 X10 3 Normal 32 - 36 [facility] Comment on above: Performed By: #### 2 33638 ####[facility],[address] [place] [address] 78487 MCV (RBC) [Entitic vol] 98 fL Normal 80 - 99 [facility] Comment on above: Performed By: #### 2 79111 ####[facility],[address] [place], [place] [address] [place] # 1.74 x10EE3/UL High 0.20 - 1.00 [facility] Comment on above: Performed By: #### 2 62799 ####[facility],[address] [place] [address] MONOS 11 % High 0 - 10 [facility] Comment on above: Performed By: #### 2 89467 ####[facility],[address] [place] [address] MONOS % 10.0 % Normal 0.0 - 10.0 [facility] Comment on above: Performed By: #### 2 42702 ####[facility],[address] [place] [address] Morphology Efra (Bld) [Interp] REVIEWED Normal [facility] Comment on above: Performed By: #### 2 29319 ####[facility],[address] [place] [address] Neut # 14.65 x10EE3/UL High 1.50 - 7.10 [facility] Comment on above: Performed By: #### 2 42864 ####[place] [address] Neutrophils/100 WBC (Bld) 84.3 % High 46.0 - 76.0 [facility] Comment on above: Performed By: #### 2 73672 ####[place] [address] PLATELET 437 x10EE3/UL Normal 150 - 450 [facility] Comment on above: Performed By: #### 2 60586 ####[facility],[address] [place] [address] Platelet mean volume (Bld) [Entitic vol] 8.2 fL Normal 6.6 - 10.5 [facility] Comment on above: Result Comment: AUTO MATED DIFFERENTIAL Performed By: #### 2 08699 ####[place] [id number] RBC 4.47 x 10EE6/UL Normal 4.10 - 5.30 [facility] Comment on above: Performed By: #### 2 73422 ####[facility],[address] [place], [place] [address] SEGS 83 % High 46 - 76 [facility] Comment on above: Performed By: #### 2 57057 ####[facility],[address] [place], [place] [address] WBC 17.4 x 10EE3/UL High 4.5 - 10.8 [facility] Comment on above: Performed By: #### 2 34939 ####[facility],[address] [place] [address] CMP with eGFRon 01-29-2025 AGE 34 years Normal [facility] Comment on above: Performed By: #### 2 90985 ####[facility],[address] [place] [address] Albumin [Mass/Vol] 4.1 g/dL Normal 3.4 - 5.0 [facility] Comment on above: Performed By: #### 2 58466 ####[facility],[address] [place], [place] [address] Albumin/Globulin [Mass ratio] 1.4 {ratio} Normal 0.9 - 1.6 [facility] Comment on above: Performed By: #### 2 79664 ####[facility],[address] [place] [address]11 ALK PHOS 91 U/L Normal 46 - 116 [facility] Comment on above: Performed By: #### 2 75290 ####[facility],[address] [place] [address] 34820 ALT [Catalytic activity/Vol] 19 U/L Normal 16 - 63 [facility] Comment on above: Performed By: #### 2 73986 ####[facility],[address] [place], [place] [address] Anion gap [Moles/Vol] 15 mmol/L Normal 10 - 20 [facility] [place] [facility] Comment on above: Performed By: #### 2 56036 ####[facility],[address] [place] [address] AST [Catalytic activity/Vol] 14 U/L Normal 13 - 39 [facility] Comment on above: Performed By: #### 2 67932 ####[facility],[address] [place] [address] B/C RATIO 10 ratio Normal 0 - 30 [facility] Comment on above: Performed By: #### 2 17018 ####[facility],[address] [place] [address] Bilirubin [Mass/Vol] 0.4 mg/dL Normal 0.2 - 1.0 [facility] Comment on above: Performed By: #### 2 98081 ####[facility],[address] [place] [address] Calcium [Mass/Vol] 9.4 mg/dL Normal 8.5 - 10.1 [facility] Comment on above: Performed By: #### 2 60848 ####[facility],[address] [place] [address] Chloride [Moles/Vol] 106 mmol/L Normal 98 - 107 [facility] Comment on above: Performed By: #### 2 90496 ####[facility],[address] [place] [address] 33731 CMP with eGFR Normal [facility] Comment on above: Result Comment: COMP REHENSIVE METABOLIC PANEL Performed By: #### 2 99801 ####[facility],[address] [place] [address] 60675 CO2 [Moles/Vol] 24.0 mmol/L Normal 21.0 - 32.0 [facility] Comment on above: Performed By: #### 2 59021 ####[facility],[address] [place] [address] 50695 Creatinine [Mass/Vol] 1.01 mg/dL Normal 0.55 - 1.02 [facility] Comment on above: Performed By: #### 2 52635 ####[facility],[address] [place] [address] 48001 GFR/1.73 sq M.predicted among non-blacks MDRD (S/P/Bld) [Vol rate/Area] mL/min/{1.73_m2} Normal 60 - 999 [facility] Comment on above: Performed By: #### 2 26879 ####[facility],[address] [place] [address] Result Comment: ACCO RDING TO THE NATIONAL KIDNEY DISEASE EDUCATION PROGRAM(NKDE), A NORMAL eGFRIS A VALUE GREATER THAN OR EQUAL TO 60 ML/MIN/1.73 SQ METERS.CHRONIC KIDNEY DISEASE: <60mL/MIN/1.73 SQ METERSKIDNEY FAILURE: <15mL/MIN/1.73 SQ METERSTHIS TEST SHOULD ONLY BE USED FOR PATIENTS 18 YEARS OF AGE AND OLDER. Globulin (S) [Mass/Vol] 3.0 g/dL Normal 1.5 - 3.8 [facility] Comment on above: Performed By: #### 2 86605 ####[facility],[address] [place] [address] 10540 Glucose [Mass/Vol] 166 mg/dL High 74 - 106 [facility] Comment on above: Performed By: #### 2 67292 ####[facility],[address] [place] [address] 60011 Potassium [Moles/Vol] 3.3 mmol/L Low 3.5 - 5.1 [facility] [place] [facility] Comment on above: Performed By: #### 2 23839 ####[facility],[address] [place] [address] 14558 Protein [Mass/Vol] 7.1 g/dL Normal 6.4 - 8.2 [facility] Comment on above: Performed By: #### 2 71264 ####[facility],[address] [place] [address] Sodium [Moles/Vol] 142 mmol/L Normal 136 - 145 [facility] Comment on above: Performed By: #### 2 87726 ####[facility],[address] [place] [address] Urea nitrogen [Mass/Vol] 10 mg/dL Normal 7 - 18 [facility] Comment on above: Performed By: #### 2 23080 ####[facility],[address] [place] [address] ED MED ADMINISTRATION DETAIL on 01-29-2025 ED MED ADMINISTRATION DETAIL Normal [facility] ED NURSES CLINICAL NOTEon ED NURSES CLINICAL NOTE Normal [facility] ED ORDER SHEET (CPOE ONLY)on 01-29-2025 ED ORDER SHEET (CPOE ONLY) Normal [facility] ED PHYSICIAN CLINICAL REPORT on 01-29-2025 ED PHYSICIAN CLINICAL REPORT Normal [facility] ED PHYSICIAN DISCHARGE REPOR Ton 01-29-2025 ED PHYSICIAN DISCHARGE REPORT Normal [facility] ED SUPER BILLon 01-29-2025 ED SUPER BILL Normal [facility] ED VISIT SUMMARYon ED VISIT SUMMARY Normal [facility] ED VITALS FLOW SHEETon 01-29 ED VITALS FLOW SHEET Normal [facility] SERUM QUALon 01-29 EXTERNAL QC DONE? YES Normal [facility] Comment on above: Performed By: #### 2 54536 ####[facility],[address] [place] [address] INTERNAL QC PASS Normal [facility] Comment on above: Performed By: #### 2 91523 ####[facility],[address] [place] [address] SER Negative Normal NEGATIVE [facility] Comment on above: Performed By: #### 2 20487 ####[facility],[address] [place] [address] URINALYSISon 01-29-2025 Amorphous NONE Normal [facility] Comment on above: Performed By: #### 2 95837 ####[facility],[address] [place] [address] 21459 Bacteria TRACE Normal [facility] Comment on above: Performed By: #### 2 35093 ####[facility],[address] [place] [address] 30092 Bilirubin Ql (U) Negative Normal NORMAL: NEGATIVE [facility] Comment on above: Performed By: #### 2 70844 ####[facility],[address] [place] [address] Casts NONE Normal [facility] Comment on above: Performed By: #### 2 36800 ####[facility],[address] [place], [place] [address] Clarity (U) SL. CLOUDY Abnormal NORMAL: CLEAR [facility] Comment on above: Performed By: #### 2 89859 ####[facility],[address] [place] [address] 14188 Color (U) p.yel Normal NORMAL: YELLOW [facility] Comment on above: Performed By: #### 2 27528 ####[facility],[address] [place] [address] 62499 Crystals LM Nom (Urine sed) NONE Normal [facility] Comment on above: Performed By: #### 2 77380 ####[facility],[address] [place] [address] 04283 Epi Cells NONE Normal [facility] Comment on above: Performed By: #### 2 79741 ####[facility],[address] [place] [address] 96906 Glucose Ql (U) NORM Normal NORMAL: NORMAL [facility] Comment on above: Performed By: #### 2 44206 ####[facility],[address] [place] [address] 72950 Hemoglobin Ql (U) 150 Abnormal NORMAL: NEGATIVE [facility] Comment on above: Performed By: #### 2 36631 ####[facility],[address] [place] [address] 47787 Ketone Negative Normal NORMAL: NEGATIVE [facility] Comment on above: Performed By: #### 2 27023 ####[facility],[address] [place] [address] 90681 Leukocytes 500 Abnormal NORMAL: NEGATIVE [facility] Comment on above: Performed By: #### 2 70100 ####[facility],[address] [place] [address] Mucous NONE Normal [facility] Comment on above: Performed By: #### 2 12565 ####[facility],[address] [place], [place] [phone] Nitrite Ql (U) Negative Normal NORMAL: NEGATIVE [facility] Comment on above: Performed By: #### 2 20913 ####[facility],[address] [place] [address] pH (U) 7 [pH] Normal NORMAL: 5.0-8.0 [facility] Comment on above: Performed By: #### 2 28489 ####[facility],[address] [place] [address] Protein Ql (U) 15 Abnormal NORMAL: NEGATIVE [facility] Comment on above: Performed By: #### 2 55962 ####[facility],[address] [place], [place] [phone] Rbc 5-10 Normal 0-3/hpf [facility] Comment on above: Performed By: #### 2 92716 ####[facility],[address] [place] [address] 1.010 Normal NORMAL: 1.010-1.030 [facility] Comment on above: Performed By: #### 2 92596 ####[facility],[address] [place] [address] Specimen Type R Normal [facility] Comment on above: Performed By: #### 2 02417 ####[facility],[address] [place] [address] Urinalysis dipstick W Reflex Microscopic panel (U) SEE BELOW Normal [facility] Comment on above: Result Comment: MICR OSCOPIC Performed By: #### 2 44702 ####[facility],[address] [place] [address] Urobilinog NORM Normal NORMAL: NORMAL [facility] Comment on above: Performed By: #### 2 17346 ####[facility],[address] [place] [address] Wbc 16-25 Normal 0-5/hpf [facility] Comment on above: Performed By: #### 2 20380 ####[facility],[address] [place] [address] Yeast 1+ Normal [facility] Comment on above: Performed By: #### 2 25149 ####[facility],[address] [place] [address] CBC + DIFFon 01-21-2025 Baso # 0.03 x10EE3/UL Normal 0.00 - 0.10 [facility] Comment on above: Performed By: #### 2 13725 ####[facility],[address] [place] [address] 53393 Basophils/100 WBC (Bld) 0.3 % Normal 0.0 - 2.0 [facility] Comment on above: Performed By: #### 2 67655 ####[facility],[address] [place], [place] [address] CBC + DIFF Normal [facility] Comment on above: Result Comment: CBC- COMPLETE BLOOD COUNT Performed By: #### 2 02210 ####[facility],[address] [place] [address] 09140 EO # 0.06 x10EE3/UL Normal 0.00 - 0.50 [facility] Comment on above: Performed By: #### 2 38787 ####[place] [address] Eosinophils/100 WBC (Bld) 0.5 % Normal 0.0 - 7.0 [facility] Comment on above: Performed By: #### 2 54038 ####[place] [address] Erythrocyte distribution width (RBC) [Ratio] 13.7 % Normal 12.0 - 15.6 [facility] Comment on above: Performed By: #### 2 87729 ####[place] [address] Hematocrit (Bld) [Volume fraction] 43.1 % Normal 34.0 - 46.0 [facility] Comment on above: Performed By: #### 2 71334 ####[place] [address] Hemoglobin (Bld) [Mass/Vol] 14.8 g/dL Normal 12.0 - 16.0 [facility] Comment on above: Performed By: #### 2 96795 ####[place] [address] Lymph # 1.74 x10EE3/UL Normal 0.80 - 2.80 [facility] Comment on above: Performed By: #### 2 50104 ####[place] [id number] Lymphocytes/100 WBC (Bld) 12.8 % Low 20.0 - 45.0 [facility] Comment on above: Performed By: #### 2 32688 ####[place] [id number] MANUAL DIFF N/A Normal [facility] Comment on above: Performed By: #### 2 31509 ####[place] [address] MCH (RBC) [Entitic mass] 34 pg High 27 - 33 [facility] Comment on above: Performed By: #### 2 57802 ####[facility],[address] [place] [address]4721 MCHC 34 X10 3 Normal 32 - 36 [facility] Comment on above: Performed By: #### 2 29273 ####[facility],[address] [place] [address] 81591 MCV (RBC) [Entitic vol] 97 fL Normal 80 - 99 [facility] Comment on above: Performed By: #### 2 40713 ####[facility],[address] [place] [address] [place] # 1.16 x10EE3/UL High 0.20 - 1.00 [facility] Comment on above: Performed By: #### 2 89457 ####[facility],[address] [place] [address] 80815 MONOS % 8.6 % Normal 0.0 - 10.0 [facility] Comment on above: Performed By: #### 2 72518 ####[facility],[address] [place] [address] 39075 Morphology Efra (Bld) [Interp] N/A Normal [facility] Comment on above: Performed By: #### 2 60769 ####[facility],[address] [place] [address] 48431 Neut # 10.59 x10EE3/UL High 1.50 - 7.10 [facility] Comment on above: Performed By: #### 2 40521 ####[facility],[address] [place] [address] 27564 Neutrophils/100 WBC (Bld) 78.0 % High 46.0 - 76.0 [facility] Comment on above: Performed By: #### 2 32006 ####[facility],[address] [place], [place] [phone] PLATELET 385 x10EE3/UL Normal 150 - 450 [facility] Comment on above: Performed By: #### 2 63230 ####[facility],[address] [place] [address] Platelet mean volume (Bld) [Entitic vol] 7.3 fL Normal 6.6 - 10.5 [facility] Comment on above: Result Comment: AUTO MATED DIFFERENTIAL Performed By: #### 2 38412 ####[facility],[address] [place] [address] RBC 4.43 x 10EE6/UL Normal 4.10 - 5.30 [facility] Comment on above: Performed By: #### 2 82819 ####[facility],[address] [place] [address] WBC 13.6 x 10EE3/UL High 4.5 - 10.8 [facility] Comment on above: Performed By: #### 2 06147 ####[facility],[address] [place] [address] CMP with eGFRon 01-21-2025 AGE 34 years Normal [facility] Comment on above: Performed By: #### 2 06260 ####[facility],[address] [place] [address] Albumin [Mass/Vol] 4.1 g/dL Normal 3.4 - 5.0 [facility] Comment on above: Performed By: #### 2 45197 ####[facility],[address] [place], [place] [address] Albumin/Globulin [Mass ratio] 1.2 {ratio} Normal 0.9 - 1.6 [facility] Comment on above: Performed By: #### 2 49095 ####[facility],[address] [place] [address] ALK PHOS 77 U/L Normal 46 - 116 [facility] Comment on above: Performed By: #### 2 86849 ####[facility],[address] [place] [address] ALT [Catalytic activity/Vol] 13 U/L Low 16 - 63 [facility] Comment on above: Performed By: #### 2 74690 ####[facility],[address] [place] [address] Anion gap [Moles/Vol] 16 mmol/L Normal 10 - 20 [facility] Comment on above: Performed By: #### 2 79035 ####[facility],[address] [place] [address] AST [Catalytic activity/Vol] 13 U/L Normal 13 - 39 [facility] Comment on above: Performed By: #### 2 33076 ####[facility],[address] [place] [address] B/C RATIO 15 ratio Normal 0 - 30 [facility] Comment on above: Performed By: #### 2 34923 ####[facility],[address] [place] [address] Bilirubin [Mass/Vol] 0.4 mg/dL Normal 0.2 - 1.0 [facility] Comment on above: Performed By: #### 2 48692 ####[facility],[address] [place] [address] Calcium [Mass/Vol] 9.2 mg/dL Normal 8.5 - 10.1 [facility] Comment on above: Performed By: #### 2 34256 ####[facility],[address] [place], [place] [address] Chloride [Moles/Vol] 103 mmol/L Normal 98 - 107 [facility] Comment on above: Performed By: #### 2 71935 ####[facility],[address] [place] [address] CMP with eGFR Normal [facility] Comment on above: Result Comment: COMP REHENSIVE METABOLIC PANEL Performed By: #### 2 59026 ####[facility],[address] [place] [address] CO2 [Moles/Vol] 23.4 mmol/L Normal 21.0 - 32.0 [facility] Comment on above: Performed By: #### 2 48342 ####[facility],[address] [place] [address] 69529 Creatinine [Mass/Vol] 0.87 mg/dL Normal 0.55 - 1.02 [facility] Comment on above: Performed By: #### 2 85206 ####[facility],[address] [place], [place] [address] GFR/1.73 sq M.predicted among non-blacks MDRD (S/P/Bld) [Vol rate/Area] mL/min/{1.73_m2} Normal 60 - 999 [facility] Comment on above: Performed By: #### 2 58260 ####[facility],[address] [place] [address] Result Comment: ACCO RDING TO THE NATIONAL KIDNEY DISEASE EDUCATION PROGRAM(NKDE), A NORMAL eGFRIS A VALUE GREATER THAN OR EQUAL TO 60 ML/MIN/1.73 SQ METERS.CHRONIC KIDNEY DISEASE: <60mL/MIN/1.73 SQ METERSKIDNEY FAILURE: <15mL/MIN/1.73 SQ METERSTHIS TEST SHOULD ONLY BE USED FOR PATIENTS 18 YEARS OF AGE AND OLDER. Globulin (S) [Mass/Vol] 3.4 g/dL Normal 1.5 - 3.8 [facility] Comment on above: Performed By: #### 2 50033 ####[facility],[address] [place] [address] 59569 Glucose [Mass/Vol] 108 mg/dL High 74 - 106 [facility] Comment on above: Performed By: #### 2 56938 ####[facility],[address] [place] [address] 50159 Potassium [Moles/Vol] 3.2 mmol/L Low 3.5 - 5.1 [facility] Comment on above: Performed By: #### 2 50837 ####[facility],[address] [place] [address] 69999 Protein [Mass/Vol] 7.5 g/dL Normal 6.4 - 8.2 [facility] Comment on above: Performed By: #### 2 65230 ####[facility],[address] [place] [address] 08175 Sodium [Moles/Vol] 139 mmol/L Normal 136 - 145 [facility] Comment on above: Performed By: #### 2 37886 ####[facility],[address] [place] [address] 64870 Urea nitrogen [Mass/Vol] 13 mg/dL Normal 7 - 18 [facility] Comment on above: Performed By: #### 2 47437 ####[facility],[address] [place], [place] [address] CORONAVIRUS (SARS) ANTIGEN T ESTon 01-21-2025 EXTERNAL QC DONE? YES Normal [facility] Comment on above: Performed By: #### 2 62254 ####[facility],[address] [place] [address] INTERNAL CONTROL PASS Normal [facility] Comment on above: Performed By: #### 2 39901 ####[facility],[address] [place] [address] 61643 SARS ANTIGEN Negative Normal NORMAL: NEGATIVE [facility] Comment on above: Performed By: #### 2 06144 ####[facility],[address] [place] [address] 71311 SEND TO ? NO Normal [facility] Comment on above: Result Comment: SARS -CoV-2THIS TEST IS BEING USED UNDER THE FDA EUA PROCEDURE. THIS ASSAY HAS BEENVALIDATED AT [facility] FOR USE WITH NASAL AND NASOPHARYNGEAL [...] BY HEALTHCARE PROVIDERS IN CONSULTATION WITH PUBLIC [facility]. Performed By: #### 2 96492 ####[facility],[address] [place] [address] ED MED ADMINISTRATION DETAIL on 01-21-2025 ED MED ADMINISTRATION DETAIL Normal [facility] ED NURSES CLINICAL NOTEon ED NURSES CLINICAL NOTE Normal [facility] ED ORDER SHEET (CPOE ONLY)on 01-21-2025 ED ORDER SHEET (CPOE ONLY) Normal [facility] ED PHYSICIAN CLINICAL REPORT on 01-21-2025 ED PHYSICIAN CLINICAL REPORT Normal [facility] ED PHYSICIAN DISCHARGE REPOR Ton 01-21-2025 ED PHYSICIAN DISCHARGE REPORT Normal [facility] ED SUPER BILLon 01-21-2025 ED SUPER BILL Normal [facility] ED VISIT SUMMARYon ED VISIT SUMMARY Normal [facility] ED VITALS FLOW SHEETon 01-21 ED VITALS FLOW SHEET Normal [facility] INFLUENZA VIRUS RAPID A/Bon 01-21-2025 INFLUENZA VIRUS RAPID A/B Normal [facility] Comment on above: Performed By: #### 2 10000 ####[facility],[address] [place] [address] LACTATEon 01-21-2025 Lactate [Moles/Vol] 1.0 mmol/L Normal 0.4 - 2.0 [facility] Comment on above: Performed By: #### 2 19158 ####[facility],[address] [place] [address] LIPASEon 01-21-2025 Lipase [Catalytic activity/Vol] 10.0 U/L Low 15.0 - 78.0 [facility] Comment on above: Result Comment: *PLE ASE NOTE THAT RANGES FOR LIPASE HAVE CHANGED OF 10/31/23 DUE TO AN ASSAYUPDATE BY THE PURCHASING DEPARTMENT CLERK.THE NEW ASSAY RANGE IS 6-250 U/L, WITH A REFERENCERANGE OF 16-77 U/L. Performed By: #### 2 99120 ####[facility],[address] [place] [address] SERUM QUALon 01-21 EXTERNAL QC DONE? YES Normal [facility] Comment on above: Performed By: #### 2 13271 ####[facility],[address] [place] [address] INTERNAL QC PASS Normal [facility] Comment on above: Performed By: #### 2 54506 ####[facility],[address] [place] [address] SER Negative Normal NEGATIVE [facility] Comment on above: Performed By: #### 2 01081 ####[facility],[address] [place] [address] IR NEPHROSTOMY EXCHANGEon IR NEPHROSTOMY EXCHANGE Normal A [facility] IR PORT REMOVALon 12-22-2024 IR PORT REMOVAL Normal [facility]ORYOrdered By: Nell Vegacisco on 12-22-2024 Beta HCG ( test) Ql (U) Negative (12/22/24 10:06 AM) [facility] Work Phone: ED MED ADMINISTRATION DETAIL on 12-11-2024 ED MED ADMINISTRATION DETAIL Normal [facility] ED NURSES CLINICAL NOTEon ED NURSES CLINICAL NOTE Normal [facility] ED ORDER SHEET (CPOE ONLY)on 12-11-2024 ED ORDER SHEET (CPOE ONLY) Normal [facility] ED PHYSICIAN CLINICAL REPORT on 12-11-2024 ED PHYSICIAN CLINICAL REPORT Normal [facility] ED PHYSICIAN DISCHARGE REPOR Ton 12-11-2024 ED PHYSICIAN DISCHARGE REPORT Normal [facility] ED SUPER BILLon 12-11-2024 ED SUPER BILL Normal [facility] ED VISIT SUMMARYon ED VISIT SUMMARY Normal [facility] ED VITALS FLOW SHEETon 12-11 ED VITALS FLOW SHEET Normal [facility] CBC + DIFFon 12-10-2024 Baso # 0.04 x10EE3/UL Normal 0.00 - 0.10 [facility] Comment on above: Performed By: #### 2 23326 ####[facility],[address] [place] [address] Basophils/100 WBC (Bld) 0.3 % Normal 0.0 - 2.0 [facility] Comment on above: Performed By: #### 2 25053 ####[facility],[address] [place] [address] CBC + DIFF Normal [facility] Comment on above: Result Comment: CBC- COMPLETE BLOOD COUNT Performed By: #### 2 83226 ####[facility],[address] [place] [address] EO # 0.18 x10EE3/UL Normal 0.00 - 0.50 [facility] Comment on above: Performed By: #### 2 56862 ####[facility],[address] [place] [address] 08877 Eosinophils/100 WBC (Bld) 1.6 % Normal 0.0 - 7.0 [facility] Comment on above: Performed By: #### 2 54897 ####[facility],[address] [place] [address] Erythrocyte distribution width (RBC) [Ratio] 14.4 % Normal 12.0 - 15.6 [facility] Comment on above: Performed By: #### 2 45429 ####[facility],[address] [place] [address] Hematocrit (Bld) [Volume fraction] 42.6 % Normal 34.0 - 46.0 [facility] Comment on above: Performed By: #### 2 26612 ####[facility],[address] [place] [address] Hemoglobin (Bld) [Mass/Vol] 14.4 g/dL Normal 12.0 - 16.0 [facility] Comment on above: Performed By: #### 2 86466 ####[facility],[address] [place] [address] Lymph # 1.79 x10EE3/UL Normal 0.80 - 2.80 [facility] Comment on above: Performed By: #### 2 16616 ####[facility],[address] [place], [place] [address] Lymphocytes/100 WBC (Bld) 15.3 % Low 20.0 - 45.0 [facility] Comment on above: Performed By: #### 2 94055 ####[facility],[address] [place] [address] 63259 MANUAL DIFF N/A Normal [facility] Comment on above: Performed By: #### 2 60593 ####[facility],[address] [place], [place] [address] MCH (RBC) [Entitic mass] 33 pg Normal 27 - 33 [facility] Comment on above: Performed By: #### 2 14359 ####[facility],[address] [place] [address] 93487 MCHC 34 X10 3 Normal 32 - 36 [facility] Comment on above: Performed By: #### 2 05086 ####[facility],[address] [place] [address] 26521 MCV (RBC) [Entitic vol] 98 fL Normal 80 - 99 [facility] Comment on above: Performed By: #### 2 58303 ####[facility],[address] [place] [address] 55758 [place] # 0.96 x10EE3/UL Normal 0.20 - 1.00 [facility] Comment on above: Performed By: #### 2 56210 ####[facility],[address] [place] [address] 14124 MONOS % 8.2 % Normal 0.0 - 10.0 [facility] Comment on above: Performed By: #### 2 85307 ####[facility],[address] [place] [address] 74171 Morphology Efra (Bld) [Interp] N/A Normal [facility] Comment on above: Performed By: #### 2 76533 ####[facility],[address] [place] [address] 74086 Neut # 8.76 x10EE3/UL High 1.50 - 7.10 [facility] Comment on above: Performed By: #### 2 19152 ####[facility],[address] [place] [address] 86509 Neutrophils/100 WBC (Bld) 74.6 % Normal 46.0 - 76.0 [facility] Comment on above: Performed By: #### 2 23033 ####[facility],[address] [place] [address] 37704 PLATELET 444 x10EE3/UL Normal 150 - 450 [facility] Comment on above: Performed By: #### 2 88800 ####[facility],[address] [place] [address] 16792 Platelet mean volume (Bld) [Entitic vol] 7.1 fL Normal 6.6 - 10.5 [facility] Comment on above: Result Comment: AUTO MATED DIFFERENTIAL Performed By: #### 2 99095 ####[facility],[address] [place] [address] 67007 RBC 4.35 x 10EE6/UL Normal 4.10 - 5.30 [facility] Comment on above: Performed By: #### 2 93342 ####[facility],[address] [place] [address] 51872 WBC 11.7 x 10EE3/UL High 4.5 - 10.8 [facility] Comment on above: Performed By: #### 2 60915 ####[facility],[address] [place], [place] [address] CMP with eGFRon 12-10-2024 AGE 33 years Normal [facility] Comment on above: Performed By: #### 2 18505 ####[facility],[address] [place] [address] 88659 Albumin [Mass/Vol] 4.2 g/dL Normal 3.4 - 5.0 [facility] Comment on above: Performed By: #### 2 68961 ####[facility],[address] [place] [address] 28946 Albumin/Globulin [Mass ratio] 1.3 {ratio} Normal 0.9 - 1.6 [facility] Comment on above: Performed By: #### 2 50249 ####[facility],[address] [place] [address] 06297 ALK PHOS 82 U/L Normal 46 - 116 [facility] Comment on above: Performed By: #### 2 36213 ####[facility],[address] [place] [address] 08426 ALT [Catalytic activity/Vol] 12 U/L Low 16 - 63 [facility] Comment on above: Performed By: #### 2 59503 ####[facility],[address] [place] [address] 50133 Anion gap [Moles/Vol] 14 mmol/L Normal 10 - 20 [facility] Comment on above: Performed By: #### 2 03149 ####[facility],[address] [place] [address] 16198 AST [Catalytic activity/Vol] 14 U/L Normal 13 - 39 [facility] Comment on above: Performed By: #### 2 07291 ####[facility],[address] [place] [address] 03065 B/C RATIO 11 ratio Normal 0 - 30 [facility] Comment on above: Performed By: #### 2 74465 ####[facility],[address] [place] [address] 62560 Bilirubin [Mass/Vol] 0.4 mg/dL Normal 0.2 - 1.0 [facility] Comment on above: Performed By: #### 2 11712 ####[facility],[address] [place] [address] 92836 Calcium [Mass/Vol] 9.1 mg/dL Normal 8.5 - 10.1 [facility] Comment on above: Performed By: #### 2 95301 ####[facility],[address] [place] [address] 40332 Chloride [Moles/Vol] 102 mmol/L Normal 98 - 107 [facility] Comment on above: Performed By: #### 2 08430 ####[facility],[address] [place] [address] 90121 CMP with eGFR Normal [facility] Comment on above: Result Comment: COMP REHENSIVE METABOLIC PANEL Performed By: #### 2 59685 ####[facility],[address] [place] [address] 34109 CO2 [Moles/Vol] 28.0 mmol/L Normal 21.0 - 32.0 [facility] Comment on above: Performed By: #### 2 48414 ####[facility],[address] [place] [address] 09201 Creatinine [Mass/Vol] 1.09 mg/dL High 0.55 - 1.02 [facility] Comment on above: Performed By: #### 2 12750 ####[facility],[address] [place] [address] 56419 eGFR 57 ML/MINUTE Low 60 - 999 [facility] Comment on above: Performed By: #### 2 38424 ####[address] [address] GFR/1.73 sq M.predicted among non-blacks MDRD (S/P/Bld) [Vol rate/Area] mL/min/{1.73_m2} Normal 60 - 999 [facility] Comment on above: Result Comment: ACCO RDING TO THE NATIONAL KIDNEY DISEASE EDUCATION PROGRAM(NKDE), A NORMAL eGFRIS A VALUE GREATER THAN OR EQUAL TO 60 ML/MIN/1.73 SQ METERS.CHRONIC KIDNEY DISEASE: <60mL/MIN/1.73 SQ METERSKIDNEY FAILURE: <15mL/MIN/1.73 SQ METERSTHIS TEST SHOULD ONLY BE USED FOR PATIENTS 18 YEARS OF AGE AND OLDER. Performed By: #### 2 29651 ####[facility],[address] [place] [address] 30296 Globulin (S) [Mass/Vol] 3.2 g/dL Normal 1.5 - 3.8 [facility] Comment on above: Performed By: #### 2 53056 ####[facility],[address] [place] [address] 00086 Glucose [Mass/Vol] 91 mg/dL Normal 74 - 106 [facility] Comment on above: Performed By: #### 2 58233 ####[address] [address] Potassium [Moles/Vol] 3.7 mmol/L Normal 3.5 - 5.1 [facility] Comment on above: Performed By: #### 2 23295 ####[facility],[address] [place] [place] [address] Protein [Mass/Vol] 7.4 g/dL Normal 6.4 - 8.2 [facility] Comment on above: Performed By: #### 2 38578 ####[facility],[address] [place] [address] Sodium [Moles/Vol] 140 mmol/L Normal 136 - 145 [facility] Comment on above: Performed By: #### 2 56473 ####[place] [address] Urea nitrogen [Mass/Vol] 12 mg/dL Normal 7 - 18 [facility] Comment on above: Performed By: #### 2 19855 ####[place] [address] CPKon 12-10-2024 CPK 86 U/L Normal 26 - 192 [facility] Comment on above: Performed By: #### 2 59159 ####[facility],[address] [place] [address] CT ABDOMEN/PELVIS Won 2024 CT ABDOMEN/PELVIS W Normal [facility] SERUM QUALon 12-10 EXTERNAL QC DONE? YES Normal [facility] Comment on above: Performed By: #### 2 41409 ####[facility],[address] [place] [address] INTERNAL QC PASS Normal [facility] Comment on above: Performed By: #### 2 67695 ####[facility],[address] [place] [address] SER Negative Normal NEGATIVE [facility] Comment on above: Performed By: #### 2 74960 ####[facility],[address] [place] [address] URINALYSISon 12-10-2024 Bilirubin Ql (U) Negative Normal NORMAL: NEGATIVE [facility] Comment on above: Performed By: #### 2 41401 ####[facility],[address] [place] [address] 82034 Clarity (U) clear Normal NORMAL: CLEAR [facility] Comment on above: Performed By: #### 2 03040 ####[facility],[address] [place] [address] 36078 Color (U) yellow Normal NORMAL: YELLOW [facility] Comment on above: Performed By: #### 2 54791 ####[facility],[address] [place] [address] 95078 Glucose Ql (U) NORM Normal NORMAL: NORMAL [facility] Comment on above: Performed By: #### 2 06177 ####[facility],[address] [place] [address] 13897 Hemoglobin Ql (U) Negative Normal NORMAL: NEGATIVE [facility] Comment on above: Performed By: #### 2 80794 ####[facility],[address] [place] [address] 25513 Ketone Negative Normal NORMAL: NEGATIVE [facility] Comment on above: Performed By: #### 2 66701 ####[facility],[address] [place] [address] 15925 Leukocytes Negative Normal NORMAL: NEGATIVE [facility] Comment on above: Performed By: #### 2 90011 ####[facility],[address] [place] [address] 00824 Nitrite Ql (U) Negative Normal NORMAL: NEGATIVE [facility] Comment on above: Performed By: #### 2 98197 ####[facility],[address] [place] [address] 47198 pH (U) 7 [pH] Normal NORMAL: 5.0-8.0 [facility] Comment on above: Performed By: #### 2 11933 ####[facility],[address] [place] [address] Protein Ql (U) Negative Normal NORMAL: NEGATIVE [facility] Comment on above: Performed By: #### 2 33840 ####[facility],[address] [place] [address] 1.015 Normal NORMAL: 1.010-1.030 [facility] Comment on above: Performed By: #### 2 54764 ####[facility],[address] [place] [address] Specimen Type R Normal [facility] Comment on above: Performed By: #### 2 46845 ####[facility],[address] [place] [address] Urinalysis dipstick W Reflex Microscopic panel (U) NOT INDICATED Normal [facility] Comment on above: Performed By: #### 2 59477 ####[place] [address] Urobilinog NORM Normal NORMAL: NORMAL [facility] Comment on above: Performed By: #### 2 21310 ####[place] [address] Education Supervisor Cytology Reporton 2024 Education Supervisor Cytology Report Normal [facility] HPVon 11-18-2024 HPV Interp Normal [facility] Comment on above: Order Comment: Order placed by AP_HPV_ORDER rule from [id number] Result Comment: High Risk HPV Typing: NEGATIVEHPV [...] Interp HPVN Performed By: #### H PV ####[place] [address] HPV Source Cervix Normal [facility] Comment on above: Order Comment: Order placed by AP_HPV_ORDER rule from [id number] Performed By: #### H PV ####[place] [address] CBLon 11-11-2024 CBL Normal [facility] URINE CULTURE [CCL]on 2024 Bacteria identified Cx Nom (U) Normal [facility] Comment on above: Performed By: #### 2 48186 ####[facility],[address] [place] [address] 61078 CBC + DIFFon 11-06-2024 Baso # 0.03 x10EE3/UL Normal 0.00 - 0.10 [facility] Comment on above: Performed By: #### 2 46952 ####[facility],[address] [place] [address] 76955 Basophils/100 WBC (Bld) 0.3 % Normal 0.0 - 2.0 [facility] Comment on above: Performed By: #### 2 69066 ####[facility],[address] [place] [address] 55292 CBC + DIFF Normal [facility] Comment on above: Result Comment: CBC- COMPLETE BLOOD COUNT Performed By: #### 2 02046 ####[facility],[address] [place] [address] 07992 EO # 0.15 x10EE3/UL Normal 0.00 - 0.50 [facility] Comment on above: Performed By: #### 2 70796 ####[facility],[address] [place] [address] 30052 Eosinophils/100 WBC (Bld) 1.5 % Normal 0.0 - 7.0 [facility] Comment on above: Performed By: #### 2 84042 ####[facility],[address] [place] [address] Erythrocyte distribution width (RBC) [Ratio] 14.8 % Normal 12.0 - 15.6 [facility] Comment on above: Performed By: #### 2 91037 ####[facility],[address] [place] [address] Hematocrit (Bld) [Volume fraction] 40.4 % Normal 34.0 - 46.0 [facility] Comment on above: Performed By: #### 2 67831 ####[facility],[address] [place] [address] Hemoglobin (Bld) [Mass/Vol] 13.9 g/dL Normal 12.0 - 16.0 [facility] Comment on above: Performed By: #### 2 25305 ####[facility],[address] [place] [address] Lymph # 2.56 x10EE3/UL Normal 0.80 - 2.80 [facility] Comment on above: Performed By: #### 2 15003 ####[facility],[address] [place] [address] Lymphocytes/100 WBC (Bld) 25.3 % Normal 20.0 - 45.0 [facility] Comment on above: Performed By: #### 2 95412 ####[facility],[address] [place], [place] [address] MANUAL DIFF N/A Normal [facility] Comment on above: Performed By: #### 2 19219 ####[facility],[address] [place], [place] [address] MCH (RBC) [Entitic mass] 33 pg Normal 27 - 33 [facility] Comment on above: Performed By: #### 2 64825 ####[facility],[address] [place] [address] MCHC 34 X10 3 Normal 32 - 36 [facility] Comment on above: Performed By: #### 2 31494 ####[facility],[address] [place] [address] 69497 MCV (RBC) [Entitic vol] 97 fL Normal 80 - 99 [facility] Comment on above: Performed By: #### 2 26785 ####[facility],[address] [place] [address] 68217 [place] # 0.91 x10EE3/UL Normal 0.20 - 1.00 [facility] Comment on above: Performed By: #### 2 19443 ####[facility],[address] [place] [address] 44943 MONOS % 9.0 % Normal 0.0 - 10.0 [facility] Comment on above: Performed By: #### 2 22648 ####[facility],[address] [place] [address] 16578 Morphology Efra (Bld) [Interp] N/A Normal [facility] Comment on above: Performed By: #### 2 22801 ####[facility],[address] [place] [address] 40251 Neut # 6.45 x10EE3/UL Normal 1.50 - 7.10 [facility] Comment on above: Performed By: #### 2 55791 ####[facility],[address] [place] [address] 28886 Neutrophils/100 WBC (Bld) 63.8 % Normal 46.0 - 76.0 [facility] Comment on above: Performed By: #### 2 39786 ####[facility],[address] [place] [address] 11558 PLATELET 457 x10EE3/UL High 150 - 450 [facility] Comment on above: Performed By: #### 2 69138 ####[facility],[address] [place] [address] 25338 Platelet mean volume (Bld) [Entitic vol] 6.6 fL Normal 6.6 - 10.5 [facility] Comment on above: Result Comment: AUTO MATED DIFFERENTIAL Performed By: #### 2 95036 ####[facility],[address] [place] [address] 41680 RBC 4.15 x 10EE6/UL Normal 4.10 - 5.30 [facility] Comment on above: Performed By: #### 2 86854 ####[facility],[address] [place] [address] 67106 WBC 10.1 x 10EE3/UL Normal 4.5 - 10.8 [facility] Comment on above: Performed By: #### 2 55085 ####[facility],[address] [place], [place] [address] CHEST 1 VIEWon 11-06-2024 CHEST 1 VIEW Normal [facility] CMP with eGFRon 11-06-2024 AGE 33 years Normal [facility] Comment on above: Performed By: #### 2 89088 ####[facility],[address] [place] [address] 60950 Albumin [Mass/Vol] 3.9 g/dL Normal 3.4 - 5.0 [facility] Comment on above: Performed By: #### 2 90146 ####[facility],[address] [place] [address] 52352 Albumin/Globulin [Mass ratio] 1.1 {ratio} Normal 0.9 - 1.6 [facility] Comment on above: Performed By: #### 2 05213 ####[facility],[address] [place] [address] 51762 ALK PHOS 81 U/L Normal 46 - 116 [facility] Comment on above: Performed By: #### 2 12983 ####[facility],[address] [place] [address] 14809 ALT [Catalytic activity/Vol] 13 U/L Low 16 - 63 [facility] Comment on above: Performed By: #### 2 99294 ####[facility],[address] [place] [address] 73344 Anion gap [Moles/Vol] 15 mmol/L Normal 10 - 20 [facility] Comment on above: Performed By: #### 2 33690 ####[facility],[address] [place] [address] 03329 AST [Catalytic activity/Vol] 12 U/L Low 13 - 39 [facility] Comment on above: Performed By: #### 2 00389 ####[facility],[address] [place] [address] 97560 B/C RATIO 6 ratio Normal 0 - 30 [facility] Comment on above: Performed By: #### 2 53066 ####[facility],[address] [place] [address] 60318 Bilirubin [Mass/Vol] 0.5 mg/dL Normal 0.2 - 1.0 [facility] Comment on above: Performed By: #### 2 35787 ####[facility],[address] [place] [address] 28660 Calcium [Mass/Vol] 9.1 mg/dL Normal 8.5 - 10.1 [facility] Comment on above: Performed By: #### 2 34584 ####[facility],[address] [place] [address] 06255 Chloride [Moles/Vol] 101 mmol/L Normal 98 - 107 [facility] Comment on above: Performed By: #### 2 80107 ####[facility],[address] [place] [address] 61931 CMP with eGFR Normal [facility] Comment on above: Result Comment: COMP REHENSIVE METABOLIC PANEL Performed By: #### 2 49660 ####[facility],[address] [place] [address] 70602 CO2 [Moles/Vol] 28.6 mmol/L Normal 21.0 - 32.0 [facility] Comment on above: Performed By: #### 2 70207 ####[facility],[address] [place] [address] 45585 Creatinine [Mass/Vol] 1.08 mg/dL High 0.55 - 1.02 [facility] Comment on above: Performed By: #### 2 57020 ####[facility],[address] [place] [address] 95457 eGFR 58 ML/MINUTE Low 60 - 999 [facility] Comment on above: Performed By: #### 2 39104 ####[facility],[address] [place] [address] 58108 GFR/1.73 sq M.predicted among non-blacks MDRD (S/P/Bld) [Vol rate/Area] mL/min/{1.73_m2} Normal 60 - 999 [facility] Comment on above: Result Comment: ACCO RDING TO THE NATIONAL KIDNEY DISEASE EDUCATION PROGRAM(NKDE), A NORMAL eGFRIS A VALUE GREATER THAN OR EQUAL TO 60 ML/MIN/1.73 SQ METERS.CHRONIC KIDNEY DISEASE: <60mL/MIN/1.73 SQ METERSKIDNEY FAILURE: <15mL/MIN/1.73 SQ METERSTHIS TEST SHOULD ONLY BE USED FOR PATIENTS 18 YEARS OF AGE AND OLDER. Performed By: #### 2 56976 ####[facility],[address] [place] [address] 02097 Globulin (S) [Mass/Vol] 3.5 g/dL Normal 1.5 - 3.8 [facility] Comment on above: Performed By: #### 2 80389 ####[facility],[address] [place] [address] 51135 Glucose [Mass/Vol] 79 mg/dL Normal 74 - 106 [facility] Comment on above: Performed By: #### 2 65111 ####[facility],[address] [place] [address] 96803 Potassium [Moles/Vol] 3.9 mmol/L Normal 3.5 - 5.1 [facility] Comment on above: Performed By: #### 2 88523 ####[facility],[address] [place] [address] 84247 Protein [Mass/Vol] 7.4 g/dL Normal 6.4 - 8.2 [facility] Comment on above: Performed By: #### 2 70981 ####[facility],[address] [place] [address] 11105 Sodium [Moles/Vol] 141 mmol/L Normal 136 - 145 [facility] Comment on above: Performed By: #### 2 83480 ####[facility],[address] [place] [address] 80377 Urea nitrogen [Mass/Vol] 7 mg/dL Normal 7 - 18 [facility] Comment on above: Performed By: #### 2 10427 ####[facility],[address] [place], [place] [address] CT ABDOMEN/PELVIS Won 2024 CT ABDOMEN/PELVIS W Normal [facility] CULTURE BLOOD [VANESSA]on Microscopic examination of blood, culture CULTURE BLOOD [VANESSA] _BLOOD CULTURE_ GO TO CPSI REPORTS AND ATTACHMENTS FOR SCANNED REPORT 11/12/[email or web address] TE Normal [facility] Comment on above: Performed By: #### 2 64242 ####[facility],[address] [place] [address] 97683 Microscopic examination of blood, culture CULTURE BLOOD [VANESSA] _BLOOD CULTURE_ GO TO CPSI REPORTS AND ATTACHMENTS FOR SCANNED REPORT 11/12/[id number] TE Normal [facility] Comment on above: Performed By: #### 2 57326 ####[facility],[address] [place] [address] 36656 ED MED ADMINISTRATION DETAIL on 11-06-2024 ED MED ADMINISTRATION DETAIL Normal [facility] ED NURSES CLINICAL NOTEon ED NURSES CLINICAL NOTE Normal [facility] ED ORDER SHEET (CPOE ONLY)on 11-06-2024 ED ORDER SHEET (CPOE ONLY) Normal [facility] ED PHYSICIAN CLINICAL REPORT on 11-06-2024 ED PHYSICIAN CLINICAL REPORT Normal [facility] ED PHYSICIAN DISCHARGE REPOR Ton 11-06-2024 ED PHYSICIAN DISCHARGE REPORT Normal [facility] ED SUPER BILLon 11-06-2024 ED SUPER BILL Normal [facility] ED VISIT SUMMARYon ED VISIT SUMMARY Normal [facility] ED VITALS FLOW SHEETon 11-06 ED VITALS FLOW SHEET Normal [facility] LACTATEon 11-06-2024 Lactate [Moles/Vol] 1.1 mmol/L Normal 0.4 - 2.0 [facility] Comment on above: Performed By: #### 2 30955 ####[facility],[address] [place] [address] URINEon 11-06-2024 Beta HCG ( test) Ql (U) Negative Normal NEGATIVE [facility] Comment on above: Performed By: #### 2 70410 ####[facility],[address] [place] [address] EXTERNAL QC DONE? YES Normal [facility] Comment on above: Performed By: #### 2 13540 ####[facility],[address] [place] [address] INTERNAL QC PASS Normal [facility] Comment on above: Performed By: #### 2 00251 ####[facility],[address] [place] [address] 16838 TROPONINon 11-06-2024 HS TROPONIN <4.0 Normal 0.0 - 51.4 [facility] Comment on above: Performed By: #### 2 36609 ####[facility],[address] [place] [address] 01288 URINALYSISon 11-06-2024 Amorphous NONE Normal [facility] Comment on above: Performed By: #### 2 04390 ####[facility],[address] [place] [address] 55020 Bacteria TRACE Normal [facility] Comment on above: Performed By: #### 2 60384 ####[facility],[address] [place] [address] 17379 Bilirubin Ql (U) Negative Normal NORMAL: NEGATIVE [facility] Comment on above: Performed By: #### 2 87027 ####[facility],[address] [place], [place] [address] Casts NONE Normal [facility] Comment on above: Performed By: #### 2 88661 ####[facility],[address] [place] [address] Clarity (U) SL. CLOUDY Abnormal NORMAL: CLEAR [facility] Comment on above: Performed By: #### 2 13660 ####[facility],[address] [place], [place] [address] Color (U) yellow Normal NORMAL: YELLOW [facility] Comment on above: Performed By: #### 2 60077 ####[facility],[address] [place] [address] 49853 Crystals LM Nom (Urine sed) NONE Normal [facility] Comment on above: Performed By: #### 2 58925 ####[facility],[address] [place] [address] 70532 Epi Cells OCC Normal [facility] Comment on above: Performed By: #### 2 03572 ####[facility],[address] [place] [address] 24675 Glucose Ql (U) NORM Normal NORMAL: NORMAL [facility] Comment on above: Performed By: #### 2 45708 ####[facility],[address] [place] [address] 46191 Hemoglobin Ql (U) 10 Abnormal NORMAL: NEGATIVE [facility] Comment on above: Performed By: #### 2 00945 ####[facility],[address],[place] [address] Ketone Negative Normal NORMAL: NEGATIVE [facility] Comment on above: Performed By: #### 2 15792 ####[facility],[address] [place] [address] 61620 Leukocytes Negative Normal NORMAL: NEGATIVE [facility] Comment on above: Performed By: #### 2 60803 ####[facility],[address] [place], [place] [address] Mucous NONE Normal [facility] Comment on above: Performed By: #### 2 22695 ####[facility],[address] [place] [address] 91021 Nitrite Ql (U) Negative Normal NORMAL: NEGATIVE [facility] Comment on above: Performed By: #### 2 76124 ####[facility],[address] [place] [address] pH (U) 6 [pH] Normal NORMAL: 5.0-8.0 [facility] Comment on above: Result Comment: UNAB LE TO PERFORM PROTEIN Performed By: #### 2 77911 ####[facility],[address] [place] [address] Rbc 0-5 Normal 0-3/hpf [facility] Comment on above: Performed By: #### 2 07106 ####[facility],[address] [place] [address] 1.020 Normal NORMAL: 1.010-1.030 [facility] Comment on above: Performed By: #### 2 22013 ####[facility],[address] [place], [place] [address] Specimen Type R Normal [facility] Comment on above: Performed By: #### 2 46402 ####[facility],[address] [place], [place] [address] Urinalysis dipstick W Reflex Microscopic panel (U) SEE BELOW Normal [facility] Comment on above: Result Comment: MICR OSCOPIC Performed By: #### 2 44870 ####[facility],[address] [place] [address] 19681 Urobilinog NORM Normal NORMAL: NORMAL [facility] Comment on above: Performed By: #### 2 33264 ####[facility],[address] [place] [address] 76585 Wbc NONE Normal 0-5/hpf [facility] Comment on above: Performed By: #### 2 69225 ####[facility],[address] [place] [address] 71632 Yeast NONE Normal [facility] Comment on above: Performed By: #### 2 55589 ####[facility],[address] [place] [address] Amorphous NONE Normal [facility] Comment on above: Performed By: #### 2 77046 ####[facility],[address] [place] [address] Bacteria 4+ Normal [facility] Comment on above: Performed By: #### 2 31974 ####[facility],[address] [place] [address] 06554 Bilirubin Ql (U) Negative Normal NORMAL: NEGATIVE [facility] Comment on above: Performed By: #### 2 64335 ####[facility],[address] [place] [address] 82377 Casts NONE Normal [facility] Comment on above: Performed By: #### 2 51160 ####[facility],[address] [place] [address] 74431 Clarity (U) CLOUDY Abnormal NORMAL: CLEAR [facility] Comment on above: Performed By: #### 2 49289 ####[facility],[address] [place] [address] 76927 Color (U) orange Normal NORMAL: YELLOW [facility] Comment on above: Performed By: #### 2 41262 ####[facility],[address] [place] [address] 90208 Crystals LM Nom (Urine sed) NONE Normal [facility] Comment on above: Performed By: #### 2 27297 ####[facility],[address] [place] [address] 35280 Epi Cells NONE Normal [facility] Comment on above: Performed By: #### 2 78311 ####[facility],[address] [place] [address] 27540 Glucose Ql (U) NORM Normal NORMAL: NORMAL [facility] Comment on above: Performed By: #### 2 41430 ####[facility],[address] [place] [address] 28235 Hemoglobin Ql (U) 250 Abnormal NORMAL: NEGATIVE [facility] Comment on above: Performed By: #### 2 16983 ####[facility],[address] [place] [address] 17381 Ketone Negative Normal NORMAL: NEGATIVE [facility] Comment on above: Performed By: #### 2 40342 ####[facility],[address] [place] [address] 12341 Leukocytes 500 Abnormal NORMAL: NEGATIVE [facility] Comment on above: Performed By: #### 2 64137 ####[facility],[address] [place] [address] 54822 Mucous NONE Normal [facility] Comment on above: Performed By: #### 2 72636 ####[facility],[address] [place] [address] 52057 Nitrite Ql (U) Positive Normal NORMAL: NEGATIVE [facility] Comment on above: Performed By: #### 2 21620 ####[facility],[address] [place] [address] 10175 pH (U) 7 [pH] Normal NORMAL: 5.0-8.0 [facility] Comment on above: Result Comment: UNAB LE TO PERFORM PROTEIN Performed By: #### 2 73816 ####[facility],[address] [place] [address] 06701 Rbc TNTC Normal 0-3/hpf [facility] Comment on above: Performed By: #### 2 57055 ####[facility],[address] [place] [address] 1.010 Normal NORMAL: 1.010-1.030 [facility] Comment on above: Performed By: #### 2 36330 ####[facility] [facility],[address] [place] [address] Specimen Type R Normal [facility] Comment on above: Performed By: #### 2 [id number] ####[facility],[address] [place] [address] Urinalysis dipstick W Reflex Microscopic panel (U) SEE BELOW Normal [facility] Comment on above: Result Comment: MICR OSCOPIC Performed By: #### 2 38405 ####[facility],[address] [place] [address] Urobilinog NORM Normal NORMAL: NORMAL [facility] Comment on above: Performed By: #### 2 46747 ####[facility],[address] [place] [address] WBC (U) [#/Vol] /uL Normal 0-5/hpf [facility] Comment on above: Performed By: #### 2 63937 ####[facility],[address] [place] [address] Yeast NONE Normal [facility] Comment on above: Performed By: #### 2 38019 ####[facility],[address] [place] [address] IR NEPHROSTOMY EXCHANGEon IR NEPHROSTOMY EXCHANGE Normal A [facility] ED MED ADMINISTRATION DETAIL on 09-04-2024 ED MED ADMINISTRATION DETAIL Normal [facility] ED NURSES CLINICAL NOTEon ED NURSES CLINICAL NOTE Normal [facility] ED ORDER SHEET (CPOE ONLY)on 09-04-2024 ED ORDER SHEET (CPOE ONLY) Normal [facility] ED PHYSICIAN CLINICAL REPORT on 09-04-2024 ED PHYSICIAN CLINICAL REPORT Normal [facility] ED PHYSICIAN DISCHARGE REPOR Ton 09-04-2024 ED PHYSICIAN DISCHARGE REPORT Normal [facility] ED SUPER BILLon 09-04-2024 ED SUPER BILL Normal [facility] ED VISIT SUMMARYon ED VISIT SUMMARY Normal [facility] ED VITALS FLOW SHEETon 09-04 ED VITALS FLOW SHEET Normal [facility] BMP with eGFRon 08-31-2024 AGE 33 years Normal [facility] Comment on above: Performed By: #### 2 48955 ####[facility],[address] [place] [address] 27225 Anion gap [Moles/Vol] 17 mmol/L Normal 10 - [facility] Comment on above: Performed By: #### 2 33706 ####[facility],[address] [place] [address] 91258 BMP with eGFR Normal [facility] Comment on above: Result Comment: BASI C METABOLIC PANEL Performed By: #### 2 14445 ####[facility],[address] [place] [address] 06316 Calcium [Mass/Vol] 8.3 mg/dL Low 8.5 - 10.1 [facility] Comment on above: Performed By: #### 2 75090 ####[facility],[address] [place] [address] 48945 Chloride [Moles/Vol] 109 mmol/L High 98 - 107 [facility] Comment on above: Performed By: #### 2 39839 ####[facility],[address] [place] [address] 16834 CO2 [Moles/Vol] 20.7 mmol/L Low 21.0 - 32.0 [facility] Comment on above: Performed By: #### 2 31018 ####[facility],[address] [place] [address] 19025 Creatinine [Mass/Vol] 0.96 mg/dL Normal 0.55 - 1.02 [facility] Comment on above: Performed By: #### 2 27202 ####[facility],[address] [place] [address] 22194 GFR/1.73 sq M.predicted among non-blacks MDRD (S/P/Bld) [Vol rate/Area] mL/min/{1.73_m2} Normal 60 - 999 [facility] Comment on above: Performed By: #### 2 26396 ####[facility],[address] [place] [address] Result Comment: ACCO RDING TO THE NATIONAL KIDNEY DISEASE EDUCATION PROGRAM(NKDE), A NORMAL eGFRIS A VALUE GREATER THAN OR EQUAL TO 60 ML/MIN/1.73 SQ METERS.CHRONIC KIDNEY DISEASE: <60mL/MIN/1.73 SQ METERSKIDNEY FAILURE: <15mL/MIN/1.73 SQ METERSTHIS TEST SHOULD ONLY BE USED FOR PATIENTS 18 YEARS OF AGE AND OLDER. Glucose [Mass/Vol] 124 mg/dL High 74 - 106 [facility] Comment on above: Performed By: #### 2 08032 ####[facility],[address] [place] [address] 39665 Potassium [Moles/Vol] 3.5 mmol/L Normal 3.5 - 5.1 [facility] Comment on above: Performed By: #### 2 62740 ####[facility],[address] [place] [address] 38951 Sodium [Moles/Vol] 143 mmol/L Normal 136 - 145 [facility] Comment on above: Performed By: #### 2 20277 ####[facility],[address] [place] [address] 52467 Urea nitrogen [Mass/Vol] 8 mg/dL Normal 7 - 18 [facility] Comment on above: Performed By: #### 2 84387 ####[facility],[address] [place], [place] [address] AGE 33 years Normal [facility] Comment on above: Performed By: #### 2 68022 ####[facility],[address] [place] [address] 97627 Anion gap [Moles/Vol] 18 mmol/L Normal 10 - 20 [facility] Comment on above: Performed By: #### 2 37158 ####[facility],[address] [place] [address] 11876 BMP with eGFR Normal [facility] Comment on above: Result Comment: BASI C METABOLIC PANEL Performed By: #### 2 86279 ####[facility],[address] [place] [address] 92861 Calcium [Mass/Vol] 9.4 mg/dL Normal 8.5 - 10.1 [facility] Comment on above: Performed By: #### 2 45157 ####[facility],[address] [place] [address] 63050 Chloride [Moles/Vol] 104 mmol/L Normal 98 - 107 [facility] Comment on above: Performed By: #### 2 61859 ####[facility],[address] [place] [address] 52328 CO2 [Moles/Vol] 24.0 mmol/L Normal 21.0 - 32.0 [facility] Comment on above: Performed By: #### 2 17181 ####[facility],[address] [place] [address] 08099 Creatinine [Mass/Vol] 1.11 mg/dL High 0.55 - 1.02 [facility] Comment on above: Performed By: #### 2 85110 ####[facility],[address] [place] [address] 11192 eGFR 56 ML/MINUTE Low 60 - 999 [facility] Comment on above: Performed By: #### 2 71053 ####[facility],[address] [place] [address] 16156 GFR/1.73 sq M.predicted among non-blacks MDRD (S/P/Bld) [Vol rate/Area] mL/min/{1.73_m2} Normal 60 - 999 [facility] Comment on above: Result Comment: ACCO RDING TO THE NATIONAL KIDNEY DISEASE EDUCATION PROGRAM(NKDE), A NORMAL eGFRIS A VALUE GREATER THAN OR EQUAL TO 60 ML/MIN/1.73 SQ METERS.CHRONIC KIDNEY DISEASE: <60mL/MIN/1.73 SQ METERSKIDNEY FAILURE: <15mL/MIN/1.73 SQ METERSTHIS TEST SHOULD ONLY BE USED FOR PATIENTS 18 YEARS OF AGE AND OLDER. Performed By: #### 2 71662 ####[facility],[address] [place] [address] 57658 Glucose [Mass/Vol] 146 mg/dL High 74 - 106 [facility] Comment on above: Performed By: #### 2 69426 ####[address] [address] Potassium [Moles/Vol] 2.9 mmol/L Critically low 3.5 - 5.1 [facility] Comment on above: Result Comment: { CA LLED TO ED AT 0650{ READ BACK BY TADEO TO CWB Performed By: #### 2 19200 ####[facility],[address] [place] [address] 13660 Sodium [Moles/Vol] 143 mmol/L Normal 136 - 145 [facility] Comment on above: Performed By: #### 2 55722 ####[facility],[address] [place] [address] 24047 Urea nitrogen [Mass/Vol] 9 mg/dL Normal 7 - 18 [facility] Comment on above: Performed By: #### 2 63097 ####[address] [address] CBC + DIFFon 08-31-2024 Baso # 0.06 x10EE3/UL Normal 0.00 - 0.10 [facility] Comment on above: Performed By: #### 2 35711 ####[facility] [place] [address] 68892 Basophils/100 WBC (Bld) 0.3 % Normal 0.0 - 2.0 [facility] Comment on above: Performed By: #### 2 32358 ####[facility],[address] [place] [address] CBC + DIFF Normal [facility] Comment on above: Result Comment: CBC- COMPLETE BLOOD COUNT Performed By: #### 2 29766 ####[facility],[address] [place] [address] EO # 0.19 x10EE3/UL Normal 0.00 - 0.50 [facility] Comment on above: Performed By: #### 2 48582 ####[facility],[address] [place] [address] Eosinophils/100 WBC (Bld) 1.1 % Normal 0.0 - 7.0 [facility] Comment on above: Performed By: #### 2 54774 ####[facility],[address] [place] [address] Erythrocyte distribution width (RBC) [Ratio] 14.0 % Normal 12.0 - 15.6 [facility] Comment on above: Performed By: #### 2 84624 ####[facility],[address] [place] [address] Hematocrit (Bld) [Volume fraction] 47.1 % High 34.0 - 46.0 [facility] Comment on above: Performed By: #### 2 22836 ####[facility],[address] [place], [place] [address] Hemoglobin (Bld) [Mass/Vol] 15.6 g/dL Normal 12.0 - 16.0 [facility] Comment on above: Performed By: #### 2 79675 ####[facility],[address] [place], [place] [address] Lymph # 3.41 x10EE3/UL High 0.80 - 2.80 [facility] Comment on above: Performed By: #### 2 09768 ####[facility],[address] [place] [address] 67243 Lymphocytes/100 WBC (Bld) 20.7 % Normal 20.0 - 45.0 [facility] Comment on above: Performed By: #### 2 85650 ####[facility],[address] [place] [address] 32210 MANUAL DIFF N/A Normal [facility] Comment on above: Performed By: #### 2 54888 ####[facility],[address] [place] [address] 81697 MCH (RBC) [Entitic mass] 32 pg Normal 27 - 33 [facility] Comment on above: Performed By: #### 2 85353 ####[facility],[address] [place] [address] MCHC 33 X10 3 Normal 32 - 36 [facility] Comment on above: Performed By: #### 2 80237 ####[facility],[address] [place] [address] 63200 MCV (RBC) [Entitic vol] 97 fL Normal 80 - 99 [facility] Comment on above: Performed By: #### 2 29428 ####[facility],[address] [place] [address] 48827 [place] # 1.00 x10EE3/UL Normal 0.20 - 1.00 [facility] Comment on above: Performed By: #### 2 23707 ####[facility],[address] [place] [address] 00135 MONOS % 6.1 % Normal 0.0 - 10.0 [facility] Comment on above: Performed By: #### 2 87744 ####[facility],[address] [place] [address] 86457 Morphology Efra (Bld) [Interp] N/A Normal [facility] Comment on above: Performed By: #### 2 03006 ####[facility],[address] [place] [address] 56642 Neut # 11.82 x10EE3/UL High 1.50 - 7.10 [facility] Comment on above: Performed By: #### 2 90137 ####[facility],[address] [place] [address] 97165 Neutrophils/100 WBC (Bld) 71.8 % Normal 46.0 - 76.0 [facility] Comment on above: Performed By: #### 2 67469 ####[facility],[address] [place] [address] 35845 PLATELET 387 x10EE3/UL Normal 150 - 450 [facility] Comment on above: Performed By: #### 2 97053 ####[facility],[address] [place] [address] 42825 Platelet mean volume (Bld) [Entitic vol] 7.1 fL Normal 6.6 - 10.5 [facility] Comment on above: Result Comment: AUTO MATED DIFFERENTIAL Performed By: #### 2 93483 ####[facility],[address] [place] [address] 45570 RBC 4.88 x 10EE6/UL Normal 4.10 - 5.30 [facility] Comment on above: Performed By: #### 2 06121 ####[facility],[address] [place] [address] 95913 WBC 16.5 x 10EE3/UL High 4.5 - 10.8 [facility] Comment on above: Performed By: #### 2 85637 ####[facility],[address] [place] [address] ABDOMEN/PELVIS WOon 08-31 CT ABDOMEN/PELVIS WO Normal [facility] SERUM QUALon 08-31 EXTERNAL QC DONE? YES Normal [facility] Comment on above: Performed By: #### 2 34335 ####[facility],[address] [place] [address] 79200 INTERNAL QC PASS Normal [facility] Comment on above: Performed By: #### 2 02722 ####[facility],[address] [place] [address] SER Positive Normal NEGATIVE [facility] Comment on above: Performed By: #### 2 29486 ####[facility],[address] [place] [address] EMERGENCY REPORTon EMERGENCY REPORT Normal [facility] IR NEPHROSTOMY EXCHANGEon IR NEPHROSTOMY EXCHANGE Normal [facility] LABORATORYOrdered By: Courtney Freed on 08-11-2024 Beta HCG ( test) Ql (U) Negative (08/11/24 8:31 AM) [facility] Work Phone: .Auto Diffon 08-06-2024 Basophil, Absolute 0.1 10 3/mcL Normal 0.0-0.3 [facility] Comment on above: Performed By: #### B MP, ANEU, GFR, ADIFF, CBC ####[address] [address] Basophils/100 WBC (Bld) 1.2 % Normal 0.0-2.5 [facility] Comment on above: Performed By: #### B MP, ANEU, GFR, ADIFF, CBC ####[address] [address] Eosinophil, Absolute 0.4 10 3/mcL Normal 0.0-0.[address] [facility] Comment on above: Performed By: #### B MP, ANEU, GFR, ADIFF, CBC ####[place] [id number] [place] [address] 36731 Eosinophils/100 WBC (Bld) 4.3 % Normal 0.0-6.0 [facility] Comment on above: Performed By: #### B MP, ANEU, GFR, ADIFF, CBC ####[place] [id number] [place] [address] 00817 Lymphocyte, Absolute 1.8 10 3/mcL Normal 0.9-4.[address] [facility] Comment on above: Performed By: #### B MP, ANEU, GFR, ADIFF, CBC ####[address] [address] Lymphocytes/100 WBC (Bld) 20.0 % Normal 20.0-40.0 [facility] Comment on above: Performed By: #### B MP, ANEU, GFR, ADIFF, CBC ####[address] [address] Monocyte, Absolute 0.5 10 3/mcL Normal 0.1-1.4 [facility] Comment on above: Performed By: #### B MP, ANEU, GFR, ADIFF, CBC ####[address] [address] Monocytes/100 WBC (Bld) 6.1 % Normal 2.0-13.0 [facility] Comment on above: Performed By: #### B MP, ANEU, GFR, ADIFF, CBC ####[address] [address] Neutrophils/100 WBC (Bld) 68.4 % Normal 50.0-75.0 [facility] Comment on above: Performed By: #### B MP, ANEU, GFR, ADIFF, CBC ####[address] [address] .GFRon 08-06-2024 GFR >60 Normal [facility] Comment on above: Result Comment: [...] #### B MP, ANEU, GFR, ADIFF, CBC ####[address] [address] GFR Non- >60 Normal [facility] Comment on above: Result [...] #### B MP, ANEU, GFR, ADIFF, CBC ####[address] [address] .NEUABSon 08-06-2024 Neutrophil, Absolute 6.1 10 3/mcL Normal 2.3-8.[address] [facility] Comment on above: Performed By: #### B MP, ANEU, GFR, ADIFF, CBC ####[address] [address] BMPon 08-06-2024 BUN/Creatinine Ratio 13.3 ratio Normal 10.0-22.0 [facility] Comment on above: Performed By: #### B MP, ANEU, GFR, ADIFF, CBC ####[address] [address] Calcium [Mass/Vol] 10.7 mg/dL High 8.7-10.4 [facility] Comment on above: Performed By: #### B MP, ANEU, GFR, ADIFF, CBC ####[address] [address] Chloride [Moles/Vol] 110 mmol/L Normal 98-110 [facility] Comment on above: Performed By: #### B MP, ANEU, GFR, ADIFF, CBC ####[address] [address] CO2 [Moles/Vol] 27 mmol/L Normal 22-32 [facility] Comment on above: Performed By: #### B MP, ANEU, GFR, ADIFF, CBC ####[place] [address] Creatinine [Mass/Vol] 0.90 mg/dL Normal 0.50-1.20 [facility] Comment on above: Result Comment: Test ing performed on Cortexica analyzer using enzymatic creatinine methodology. Performed By: #### B MP, ANEU, GFR, ADIFF, CBC ####[place] [address] Electrolyte Balance 6.0 mEq/L Normal 4.0-15.0 [facility] Comment on above: Performed By: #### B MP, ANEU, GFR, ADIFF, CBC ####[place] [address] Glucose [Mass/Vol] 85 mg/dL Normal 70-110 [facility] Comment on above: Performed By: #### B MP, ANEU, GFR, ADIFF, CBC ####[place] [address] Potassium [Moles/Vol] 4.4 mmol/L Normal 3.5-5.0 [facility] Comment on above: Performed By: #### B MP, ANEU, GFR, ADIFF, CBC ####[place] [address] Sodium [Moles/Vol] 143 mmol/L Normal 136-145 [facility] Comment on above: Performed By: #### B MP, ANEU, GFR, ADIFF, CBC ####[place] [address] Urea nitrogen [Mass/Vol] 12.0 mg/dL Normal 8.0-22.0 [facility] Comment on above: Performed By: #### B MP, ANEU, GFR, ADIFF, CBC ####[address] [address] CBCon 08-06-2024 Erythrocyte distribution width (RBC) [Ratio] 16.0 % High 11.5-15.5 [facility] Comment on above: Performed By: #### B MP, ANEU, GFR, ADIFF, CBC ####[place] [address] Hematocrit (Bld) [Volume fraction] 40.0 % Normal 34.0-46.0 [facility] Comment on above: Performed By: #### B MP, ANEU, GFR, ADIFF, CBC ####[place] [address] Hgb 13.5 G/dL Normal 12.0-16.0 [facility] Comment on above: Performed By: #### B MP, ANEU, GFR, ADIFF, CBC ####[place] [address] MCH (RBC) [Entitic mass] 32.6 pg Normal 27.0-33.0 [facility] Comment on above: Performed By: #### B MP, ANEU, GFR, ADIFF, CBC ####[place] [address] MCHC 33.8 G/dL Normal 32.0-36.0 [facility] Comment on above: Performed By: #### B MP, ANEU, GFR, ADIFF, CBC ####[place] [address] MCV (RBC) [Entitic vol] 96.4 fL Normal 80.0-99.0 [facility] Comment on above: Performed By: #### B MP, ANEU, GFR, ADIFF, CBC ####[place] [address] Platelet 429 10 3/mcL Normal 150-450 [facility] Comment on above: Performed By: #### B MP, ANEU, GFR, ADIFF, CBC ####[place] [address] Platelet mean volume (Bld) [Entitic vol] 7.4 fL Normal 6.6-10.5 [facility] Comment on above: Performed By: #### B MP, ANEU, GFR, ADIFF, CBC ####[place] [address] RBC 4.15 10 6/mcL Normal 4.10-5.30 [facility] Comment on above: Performed By: #### B MP, ANEU, GFR, ADIFF, CBC ####[facility] [place] [address] 31732 WBC 8.9 10 3/mcL Normal 4.5-10.8 [facility] Comment on above: Performed By: #### B MP, ANEU, GFR, ADIFF, CBC ####[facility] [place] [address] LABORATORYOrdered By: SYSTEM SYSTEM on 08-06-2024 Basophils [...] above: Interpretive Data: T esting performed on Cortexica analyzer using enzymatic creatinine methodology. Electrolyte Balance [...] 40.0 % Normal 34.0 - 46.0 % Workflow SS Hemoglobin (Bld) [Mass/Vol] 13.5 G/dL Normal 12.0 - 16.0 G/dL Workflow SS Lymphocytes (Bld) [#/Vol] 1.8 103/mcL Normal 0.9 - 4.3 10^3/mcL Workflow SS Lymphocytes/100 WBC (Bld) 20.0 % Normal 20.0 - 40.0 % Workflow SS MCH (RBC) [Entitic mass] 32.6 pg Normal 27.0 - 33.0 pg Workflow SS MCHC 33.8 G/dL Normal 32.0 - 36.0 G/dL Workflow SS MCV (RBC) [Entitic vol] 96.4 fL Normal 80.0 - 99.0 fL Workflow [...] # 0.04 x10EE3/UL Normal 0.00 - 0.10 [facility] Comment on above: Performed By: #### 2 01736 ####[facility],[address] [place], [place] [address] Basophils/100 WBC (Bld) 0.3 % Normal 0.0 - 2.0 [facility] Comment on above: Performed By: #### 2 06083 ####[facility],[address] [place] [address] 45925 CBC + DIFF Normal [facility] Comment on above: Result Comment: CBC- COMPLETE BLOOD COUNT Performed By: #### 2 69511 ####[facility],[address] [place] [address] 03657 EO # 0.37 x10EE3/UL Normal 0.00 - 0.50 [facility] Comment on above: Performed By: #### 2 82418 ####[facility],[address] [place] [address] 45729 Eosinophils/100 WBC (Bld) 3.1 % Normal 0.0 - 7.0 [facility] Comment on above: Performed By: #### 2 44286 ####[facility],[address] [place] [address] 41358 Erythrocyte distribution width (RBC) [Ratio] 14.5 % Normal 12.0 - 15.6 [facility] Comment on above: Performed By: #### 2 39761 ####[facility],[address] [place] [address] 34666 Hematocrit (Bld) [Volume fraction] 43.4 % Normal 34.0 - 46.0 [facility] Comment on above: Performed By: #### 2 23942 ####[facility],[address] [place] [address] 72971 Hemoglobin (Bld) [Mass/Vol] 15.0 g/dL Normal 12.0 - 16.0 [facility] Comment on above: Performed By: #### 2 46171 ####[facility],[address] [place] [address] 42113 Lymph # 2.32 x10EE3/UL Normal 0.80 - 2.80 [facility] Comment on above: Performed By: #### 2 44984 ####[facility],[address] [place] [address] 46354 Lymphocytes/100 WBC (Bld) 19.9 % Low 20.0 - 45.0 [facility] Comment on above: Performed By: #### 2 33768 ####[facility],[address] [place] [address] 84684 MANUAL DIFF N/A Normal [facility] Comment on above: Performed By: #### 2 70246 ####[facility],[address] [place] [address] 10418 MCH (RBC) [Entitic mass] 32 pg Normal 27 - 33 [facility] Comment on above: Performed By: #### 2 52177 ####[facility],[address] [place] [address] 71709 MCHC 35 X10 3 Normal 32 - 36 [facility] Comment on above: Performed By: #### 2 29791 ####[facility],[address] [place] [address] 48231 MCV (RBC) [Entitic vol] 94 fL Normal 80 - 99 [facility] Comment on above: Performed By: #### 2 46015 ####[facility],[address] [place] [address] 61184 [place] # 0.68 x10EE3/UL Normal 0.20 - 1.00 [facility] Comment on above: Performed By: #### 2 84067 ####[facility],[address] [place] [address] 27166 MONOS % 5.8 % Normal 0.0 - 10.0 [facility] Comment on above: Performed By: #### 2 14811 ####[facility],[address] [place] [address] 52919 Morphology Efra (Bld) [Interp] N/A Normal [facility] Comment on above: Performed By: #### 2 47571 ####[facility],[address] [place] [address] 51333 Neut # 8.28 x10EE3/UL High 1.50 - 7.10 [facility] Comment on above: Performed By: #### 2 41988 ####[facility],[address] [place] [address] 78668 Neutrophils/100 WBC (Bld) 70.9 % Normal 46.0 - 76.0 [facility] Comment on above: Performed By: #### 2 20716 ####[facility],[address] [place] [address] 51031 PLATELET 398 x10EE3/UL Normal 150 - 450 [facility] Comment on above: Performed By: #### 2 54018 ####[facility],[address] [place] [address] 82229 Platelet mean volume (Bld) [Entitic vol] 6.5 fL Low 6.6 - 10.5 [facility] Comment on above: Result Comment: AUTO MATED DIFFERENTIAL Performed By: #### 2 41574 ####[facility],[address] [place] [address] 99704 RBC 4.62 x 10EE6/UL Normal 4.10 - 5.30 [facility] Comment on above: Performed By: #### 2 87535 ####[facility],[address] [place] [address] 06180 WBC 11.7 x 10EE3/UL High 4.5 - 10.8 [facility] Comment on above: Performed By: #### 2 [id number] ####[facility],[address] [place] [address] CMP with eGFRon 07-10-2024 AGE 33 years Normal [facility] Comment on above: Performed By: #### 2 30251 ####[facility],[address] [place] [address]4626 Albumin [Mass/Vol] 3.8 g/dL Normal 3.4 - 5.0 [facility] Comment on above: Performed By: #### 2 39487 ####[facility],[address] [place] [address] 79728 Albumin/Globulin [Mass ratio] 1.2 {ratio} Normal 0.9 - 1.6 [facility] Comment on above: Performed By: #### 2 80998 ####[facility],[address] [place] [address] 36742 ALK PHOS 99 U/L Normal 46 - 116 [facility] Comment on above: Performed By: #### 2 02397 ####[facility],[address] [place] [address] 27942 ALT [Catalytic activity/Vol] 13 U/L Low 16 - 63 [facility] Comment on above: Performed By: #### 2 49634 ####[facility],[address] [place] [address] 94125 Anion gap [Moles/Vol] 17 mmol/L Normal 10 - 20 [facility] Comment on above: Performed By: #### 2 02462 ####[facility],[address] [place] [address] 67711 AST [Catalytic activity/Vol] 19 U/L Normal 13 - 39 [facility] Comment on above: Performed By: #### 2 87795 ####[facility],[address] [place] [address] 00826 B/C RATIO 6 ratio Normal 0 - 30 [facility] Comment on above: Performed By: #### 2 08427 ####[facility],[address] [place] [address]5901 Bilirubin [Mass/Vol] 0.3 mg/dL Normal 0.2 - 1.0 [facility] Comment on above: Performed By: #### 2 30411 ####[facility],[address] [place] [address]1040 Calcium [Mass/Vol] 9.3 mg/dL Normal 8.5 - 10.1 [facility] Comment on above: Performed By: #### 2 86741 ####[facility],[address] [place] [address] 46511 Chloride [Moles/Vol] 102 mmol/L Normal 98 - 107 [facility] Comment on above: Performed By: #### 2 97856 ####[facility],[address] [place] [address] 20516 CMP with eGFR Normal [facility] Comment on above: Result Comment: COMP REHENSIVE METABOLIC PANEL Performed By: #### 2 15287 ####[facility],[address] [place] [address] 86577 CO2 [Moles/Vol] 26.3 mmol/L Normal 21.0 - 32.0 [facility] Comment on above: Performed By: #### 2 03138 ####[facility],[address] [place] [address] 35614 Creatinine [Mass/Vol] 1.00 mg/dL Normal 0.55 - 1.02 [facility] Comment on above: Performed By: #### 2 74370 ####[facility],[address] [place] [address] GFR/1.73 sq M.predicted among non-blacks MDRD (S/P/Bld) [Vol rate/Area] mL/min/{1.73_m2} Normal 60 - 999 [facility] Comment on above: Performed By: #### 2 24787 ####[facility],[address] [place] [address] Result Comment: ACCO RDING TO THE NATIONAL KIDNEY DISEASE EDUCATION PROGRAM(NKDE), A NORMAL eGFRIS A VALUE GREATER THAN OR EQUAL TO 60 ML/MIN/1.73 SQ METERS.CHRONIC KIDNEY DISEASE: <60mL/MIN/1.73 SQ METERSKIDNEY FAILURE: <15mL/MIN/1.73 SQ METERSTHIS TEST SHOULD ONLY BE USED FOR PATIENTS 18 YEARS OF AGE AND OLDER. Globulin (S) [Mass/Vol] 3.2 g/dL Normal 1.5 - 3.8 [facility] Comment on above: Performed By: #### 2 39182 ####[facility],[address] [place] [address] 30972 Glucose [Mass/Vol] 99 mg/dL Normal 74 - 106 [facility] Comment on above: Performed By: #### 2 05200 ####[facility],[address] [place] [address] 44563 Potassium [Moles/Vol] 4.0 mmol/L Normal 3.5 - 5.1 [facility] Comment on above: Performed By: #### 2 58388 ####[facility],[address] [place] [address] Protein [Mass/Vol] 7.0 g/dL Normal 6.4 - 8.2 [facility] Comment on above: Performed By: #### 2 91851 ####[facility],[address] [place] [address] Sodium [Moles/Vol] 141 mmol/L Normal 136 - 145 [facility] Comment on above: Performed By: #### 2 28283 ####[facility],[address] [place] [address] Urea nitrogen [Mass/Vol] 6 mg/dL Low 7 - 18 [facility] Comment on above: Performed By: #### 2 96661 ####[facility],[address] [place] [address] URINALYSISon 07-10-2024 Amorphous NONE Normal [facility] Comment on above: Performed By: #### 2 34171 ####[facility],[address] [place] [address] Bacteria NONE Normal [facility] Comment on above: Performed By: #### 2 85508 ####[facility],[address] [place] [address] Bilirubin Ql (U) Negative Normal NORMAL: NEGATIVE [facility] Comment on above: Performed By: #### 2 01375 ####[facility],[address] [place] [address] Casts NONE Normal [facility] Comment on above: Performed By: #### 2 77252 ####[facility],[address] [place], [place] [address] Clarity (U) clear Normal NORMAL: CLEAR [facility] Comment on above: Performed By: #### 2 11537 ####[facility],[address] [place] [address] 89661 Color (U) yellow Normal NORMAL: YELLOW [facility] Comment on above: Performed By: #### 2 92577 ####[facility],[address] [place] [address] 38422 Crystals LM Nom (Urine sed) NONE Normal [facility] Comment on above: Performed By: #### 2 66655 ####[facility],[address] [place] [address] 73518 Epi Cells NONE Normal [facility] Comment on above: Performed By: #### 2 39276 ####[facility],[address] [place] [address] 22296 Glucose Ql (U) NORM Normal NORMAL: NORMAL [facility] Comment on above: Performed By: #### 2 19254 ####[facility],[address] [place], [place] [address] Hemoglobin Ql (U) 10 Abnormal NORMAL: NEGATIVE [facility] Comment on above: Performed By: #### 2 04317 ####[facility],[address] [place] [address] 98315 Ketone Negative Normal NORMAL: NEGATIVE [facility] Comment on above: Performed By: #### 2 12703 ####[facility],[address] [place] [address] 50738 Leukocytes 25 Abnormal NORMAL: NEGATIVE [facility] Comment on above: Performed By: #### 2 65909 ####[facility],[address] [place] [address] 97254 Mucous NONE Normal [facility] Comment on above: Performed By: #### 2 66304 ####[facility],[address] [place] [address] 28946 Nitrite Ql (U) Negative Normal NORMAL: NEGATIVE [facility] Comment on above: Performed By: #### 2 74044 ####[facility],[address] [place], [place] [address] pH (U) 8 [pH] Normal NORMAL: 5.0-8.0 [facility] Comment on above: Performed By: #### 2 50662 ####[facility],[address] [place] [address] Protein Ql (U) 15 Abnormal NORMAL: NEGATIVE [facility] Comment on above: Performed By: #### 2 90579 ####[facility],[address] [place] [address] Rbc NONE Normal 0-3/hpf [facility] Comment on above: Performed By: #### 2 75270 ####[facility],[address] [place] [address] 1.010 Normal NORMAL: 1.010-1.030 [facility] Comment on above: Performed By: #### 2 87882 ####[facility],[address] [place] [address] Specimen Type UNSPECIFIED Normal [facility] Comment on above: Performed By: #### 2 04783 ####[facility],[address] [place] [address] Urinalysis dipstick W Reflex Microscopic panel (U) SEE BELOW Normal [facility] Comment on above: Result Comment: MICR OSCOPIC Performed By: #### 2 10842 ####[facility],[address] [place] [address] Urobilinog NORM Normal NORMAL: NORMAL [facility] Comment on above: Performed By: #### 2 75484 ####[facility],[address] [place] [address] Wbc 1-5 Normal 0-5/hpf [facility] Comment on above: Performed By: #### 2 08317 ####[facility],[address] [place] [address] Yeast NONE Normal [facility] Comment on above: Performed By: #### 2 46333 ####[facility],[address] [facility] [address] .GFRon 06-09-2024 GFR >60 Normal [facility] ([place]) Comment on above: Result Comment: GFR Population [...] Performed By: #### Deondre VALDES, BMP #### [address] [address] GFR Non- >[address] [facility] ([place]) Comment on above: Result Comment: GFR Population [...] Performed By: #### G , BMP #### [address] [address] BMPon 06-09-2024 BUN/Creatinine Ratio 14.1 ratio Normal 10.0-22.0 [facility] ([place]) Comment on above: Performed By: #### G FR, BMP #### [address] [address] Calcium [Mass/Vol] 9.0 mg/dL Normal 8.7-10.4 [facility] ([place]) Comment on above: Performed By: #### Deondre VALDES, BMP #### [address] [address] Chloride [Moles/Vol] 113 mmol/L High 98-110 [facility] ([place]) Comment on above: Performed By: #### Deondre VALDES, BMP #### [address] [address] CO2 [Moles/Vol] 22 mmol/L Normal 22-32 [facility] ([place]) Comment on above: Performed By: #### Deondre VALDES, BMP #### [address] [address] Creatinine [Mass/Vol] 0.85 mg/dL Normal 0.50-1.20 [facility] ([place]) Comment on above: Performed By: #### Deondre VALDES, BMP #### [address] [address] Electrolyte Balance 5.0 mEq/L Normal 4.0-15.0 [facility] ([place]) Comment on above: Performed By: #### Deondre VALDES, BMP #### [address] [address] Glucose [Mass/Vol] 98 mg/dL Normal 70-110 [facility] ([place] Comment on above: Performed By: #### Deondre VALDES, BMP #### [address] [address] Potassium [Moles/Vol] 4.2 mmol/L Normal 3.5-5.0 [facility] ([place]) Comment on above: Result Comment: Spec imen slightly hemolyzed. Performed By: #### G , BMP #### [address] [address] Sodium [Moles/Vol] 140 mmol/L Normal 136-145 [facility] ([place] Comment on above: Performed By: #### Deondre VALDES, BMP #### [address] [address] Urea nitrogen [Mass/Vol] 12.0 mg/dL Normal 8.0-22.0 [facility] ([place]) Comment on above: Performed By: #### G FR, BMP #### [facility] [address] [place] [address] LABORATORYOrdered By: Tamia Woodson on 06-09-2024 Beta HCG ( test) Ql (U) Negative (06/09/24 7:24 AM) [facility] Work Phone: LABORATORYOrdered By: SYSTEM SYSTEM on [...] (S/P/Bld) [Vol rate/Area] ml/min/1.73sqm Invalid Interpretation Code [facility] [employer] S Comment on above: Interpretive Data: [...] (S/P/Bld) [Vol rate/Area] ml/min/1.73sqm Invalid Interpretation Code [employer] S Comment on above: Interpretive Data: [...] 98 mg/dL Normal 70 - 110 mg/dL AH ADM SS Potassium [Moles/Vol] 4.2 mmol/L Normal 3.5 - 5.0 mEq/L AH ADM SS Comment on above: Result Comment: Spec imen slightly hemolyzed. Sodium [Moles/Vol] 140 mmol/L Normal 136 - 145 mEq/L AH ADM SS Urea nitrogen [Mass/Vol] 12.0 mg/dL Normal 8.0 - 22.0 mg/dL ADM SS Urea nitrogen/Creatinine [Mass ratio] 14.1 ratio Normal 10.0 - 22.0 ratio AH ADM SS LABORATORYOrdered By: Marisa Dutton on 03-03-2024 Beta HCG ( test) Ql (U) Negative (03/03/24 1:07 PM) [facility] Work Phone: .Auto Diffon 01-21-2024 Basophil, Absolute 0.1 10 3/mcL Normal 0.0-0.3 [facility] ([place]) Comment on above: Performed By: #### C BC, ADIFF, PRO, BMP, ANEU, GFR #### [address] [address] Basophils/100 WBC (Bld) 0.8 % Normal 0.0-2.5 [facility] ([place]) Comment on above: Performed By: #### C BC, ADIFF, PRO, BMP, ANEU, GFR #### [address] [address] Eosinophil, Absolute 0.2 10 3/mcL Normal 0.0-0.7 [facility] ([place]) Comment on above: Performed By: #### C BC, ADIFF, PRO, BMP, ANEU, GFR #### [address] [address] Eosinophils/100 WBC (Bld) 1.4 % Normal 0.0-6.0 [facility] ([place]) Comment on above: Performed By: #### C BC, ADIFF, PRO, BMP, ANEU, GFR #### [address] [address] Lymphocyte, Absolute 1.9 10 3/mcL Normal 0.9-4.3 [facility] ([place]) Comment on above: Performed By: #### C BC, ADIFF, PRO, BMP, ANEU, GFR #### [address] [address] Lymphocytes/100 WBC (Bld) 16.4 % Low 20.0-40.0 [facility] ([place]) Comment on above: Performed By: #### C BC, ADIFF, PRO, BMP, ANEU, GFR #### [address] [address] Monocyte, Absolute 1.1 10 3/mcL Normal 0.1-1.4 [facility] ([place]) Comment on above: Performed By: #### C BC, ADIFF, PRO, BMP, ANEU, GFR #### [address] [address] Monocytes/100 WBC (Bld) 9.9 % Normal 2.0-13.0 [facility] ([place]) Comment on above: Performed By: #### C BC, ADIFF, PRO, BMP, ANEU, GFR #### [address] [address] Neutrophils/100 WBC (Bld) 71.5 % Normal 50.0-75.0 [facility] ([place]) Comment on above: Performed By: #### C BC, ADIFF, PRO, BMP, ANEU, GFR #### [address] [address] .GFRon 01-21-2024 GFR Non- >[address] [facility] ([place]) Comment on above: Result Comment: GFR Population [...] BC, ADIFF, PRO, BMP, ANEU, GFR #### [address] [address] GFR >60 Normal [facility] ([place]) Comment on above: Result Comment: GFR Population [...] BC, ADIFF, PRO, BMP, ANEU, GFR #### [address] [address] .NEUABSon 01-21-2024 Neutrophil, Absolute 8.1 10 3/mcL Normal 2.3-8.1 [facility] ([place]) Comment on above: Performed By: #### C BC, ADIFF, PRO, BMP, ANEU, GFR #### [address] [address] BMPon 01-21-2024 BUN/Creatinine Ratio 13.3 ratio Normal 10.0-22.0 [facility] ([place]) Comment on above: Order Comment: Speci men hemolyzed. called to shon in SDU for recollect at 01/21/2024 12:12:11 EDT Performed By: #### C BC, ADIFF, PRO, BMP, ANEU, GFR #### [address] [address] Calcium [Mass/Vol] 10.2 mg/dL Normal 8.7-10.4 [facility] ([place]) Comment on above: Order Comment: Speci men hemolyzed. called to ally in SDU for recollect at 01/21/2024 12:12:11 EDT Performed By: #### C BC, ADIFF, PRO, BMP, ANEU, GFR #### [address] [address] Chloride [Moles/Vol] 106 mmol/L Normal 98-110 [facility] ([place]) Comment on above: Order Comment: Speci men hemolyzed. called to ally in SDU for recollect at 01/21/2024 12:12:11 EDT Performed By: #### C BC, ADIFF, PRO, BMP, ANEU, GFR #### [address] [address] CO2 [Moles/Vol] 20 mmol/L Low 22-32 [facility] ([place]) Comment on above: Order Comment: Speci men hemolyzed. called to ally in SDU for recollect at 01/21/2024 12:12:11 EDT Performed By: #### C BC, ADIFF, PRO, BMP, ANEU, GFR #### [address] [address] Creatinine [Mass/Vol] 0.90 mg/dL Normal 0.50-1.20 [facility] ([place]) Comment on above: Order Comment: Speci men hemolyzed. called to ally in SDU for recollect at 01/21/2024 12:12:11 EDT Performed By: #### C BC, ADIFF, PRO, BMP, ANEU, GFR #### [address] [address] Electrolyte Balance 9.0 mEq/L Normal 4.0-15.0 [facility] ([place]) Comment on above: Order Comment: Speci men hemolyzed. called to ally in SDU for recollect at 01/21/2024 12:12:11 EDT Performed By: #### C BC, ADIFF, PRO, BMP, ANEU, GFR #### [address] [address] Glucose [Mass/Vol] 85 mg/dL Normal 70-110 [facility] ([place]) Comment on above: Order Comment: Speci men hemolyzed. called to ally in SDU for recollect at 01/21/2024 12:12:11 EDT Performed By: #### C BC, ADIFF, PRO, BMP, ANEU, GFR #### [address] [address] Potassium [Moles/Vol] 5.8 mmol/L High 3.5-5.0 [facility] ([place]) Comment on above: Order Comment: Speci men hemolyzed. called to ally in SDU for recollect at 01/21/2024 12:12:11 EDT Result Comment: Spec imen hemolyzed. Results may be falsely elevated. Performed By: #### C BC, ADIFF, PRO, BMP, ANEU, GFR #### [address] [address] Sodium [Moles/Vol] 135 mmol/L Low 136-145 [facility] ([place]) Comment on above: Order Comment: Speci men hemolyzed. called to ally in SDU for recollect at 01/21/2024 12:12:11 EDT Performed By: #### C BC, ADIFF, PRO, BMP, ANEU, GFR #### [address] [address] Urea nitrogen [Mass/Vol] 12.0 mg/dL Normal 8.0-22.0 [facility] ([place]) Comment on above: Order Comment: Speci men hemolyzed. called to ally in SDU for recollect at 01/21/2024 12:12:11 EDT Result Comment: Spec imen hemolyzed. Results may be falsely elevated. Performed By: #### C BC, ADIFF, PRO, BMP, ANEU, GFR #### [address] [address] CBCon 01-21-2024 Erythrocyte distribution width (RBC) [Ratio] 17.2 % High 11.5-15.5 [facility] ([place]) Comment on above: Performed By: #### C BC, ADIFF, PRO, BMP, ANEU, GFR #### [place] [id number] Hematocrit (Bld) [Volume fraction] 44.3 % Normal 34.0-46.0 [facility] ([place]) Comment on above: Performed By: #### C BC, ADIFF, PRO, BMP, ANEU, GFR #### [place] [address] Hgb 15.0 G/dL Normal 12.0-16.0 [facility] ([place]) Comment on above: Performed By: #### C BC, ADIFF, PRO, BMP, ANEU, GFR #### [place] [address] MCH (RBC) [Entitic mass] 31.3 pg Normal 27.0-33.0 [facility] ([place]) Comment on above: Performed By: #### C BC, ADIFF, PRO, BMP, ANEU, GFR #### [place] [address] MCHC 33.8 G/dL Normal 32.0-36.0 [facility] ([place]) Comment on above: Performed By: #### C BC, ADIFF, PRO, BMP, ANEU, GFR #### [place] [address] MCV (RBC) [Entitic vol] 92.6 fL Normal 80.0-99.0 A [facility] ([place]) Comment on above: Performed By: #### C BC, ADIFF, PRO, BMP, ANEU, GFR #### [place] [address] Platelet 429 10 3/mcL Normal 150-450 [facility] ([place]) Comment on above: Performed By: #### C BC, ADIFF, PRO, BMP, ANEU, GFR #### [place] [id number] [place] [address] Platelet mean volume (Bld) [Entitic vol] 6.7 fL Normal 6.6-10.5 [facility] ([place]) Comment on above: Performed By: #### C BC, ADIFF, PRO, BMP, ANEU, GFR #### [place] [id number] [place] [address] RBC 4.78 10 6/mcL Normal 4.10-5.30 [facility] ([place]) Comment on above: Performed By: #### C BC, ADIFF, PRO, BMP, ANEU, GFR #### [place] [id number] [place] [address] WBC 11.3 10 3/mcL High 4.5-10.8 [facility] ([place]) Comment on above: Performed By: #### C BC, ADIFF, PRO, BMP, ANEU, GFR #### [address] [address] LABORATORYOrdered By: SYSTEM SYSTEM on 01-21-2024 Calcium [...] 16.4 % Low 20.0 - 40.0 % AH Workflow SS MCH (RBC) [Entitic mass] 31.3 [...] 10^3/mcL AH Workflow SS RBC (Bld) [#/Vol] 4.78 106/mcL Normal 4.10 - 5.3 0 10^6/mcL AH Workflow SS WBC (Bld) [#/Vol] 11.3 103/mcL High 4.5 - 10.8 10^3/mcL AH Workflow SS LABORATORYOrdered By: Josue Rodrigez on 01-21-2024 Beta HCG ( test) Ql (U) Negative (01/21/24 11:50 AM) [facility] Work Phone: LABORATORYOrdered By: Delmar Long on 01-21-2024 PT Coag (PPP) [Time] 12.6 s Normal 9.0 - 1 4.2 seconds Minoo Comment on above: Interpretive Data: E ffective 05/17/08, Protime results may be affected by some antibiotics (i.e. Ciprofloxacin, Azithromycin, Bactrim) which may potentiate the action of oral anticoagulants, with further increases in Protime/INR. PT International Ratio 1.1 ratio Invalid Interpretation Code Minoo Comment on above: Interpretive Data: [employer] (CHEST, 1991, 102:312S-25S) recommended therapeutic range for oral anticoagulant therapy is: LOW RISK: Prophylaxis of venous thrombosis INR: 2.0-3.0 Treatment of pulmonary embolism 2.0-3.0 Prevention of systemic embolism 2.0-3.0 HIGH RISK: Mechanical prosthetic valves 2.5-3.5 PROon 01-21-2024 INR Coag (PPP) [Relative time] 1.1 {INR} Normal [facility] ([place]) Comment on above: Result Comment: [employer] (CHEST, 1991, 102:312S-25S) recommended therapeutic range for oral anticoagulant therapy is: LOW RISK: Prophylaxis of venous thrombosis INR: 2.0-3.0 Treatment of pulmonary embolism 2.0-3.0 Prevention of systemic embolism 2.0-3.0 HIGH RISK: Mechanical prosthetic valves 2.5-3.5 Performed By: #### C BC, ADIFF, PRO, BMP, ANEU, GFR #### [address] [address] PT Coag (PPP) [Time] 12.6 s Normal 9.0-14.2 [facility] ([place]) Comment on above: Result Comment: Effe ctive 05/17/08, Protime results may be affected by some antibiotics (i.e. Ciprofloxacin, Azithromycin, Bactrim) which may potentiate the action of oral anticoagulants, with further increases in Protime/INR. Performed By: #### C BC, ADIFF, PRO, BMP, ANEU, GFR #### [address] [address] Education Supervisor Cytology Reporton 2023 Education Supervisor Cytology Report . Pathology Reports Accession: Collected Date/Time: Received Date/Time: Pathologist: [id number] 12/08/2023 16:49 EST 12/08/2023 18:00 EST TRICIA CAST MD Education Supervisor Cytology Report SPECIMEN: Specimen Description: Liquid Prep [...] Reports Accession: Collected Date/Time: Received Date/Time: Pathologist: [id number] 12/08/2023 16:49 EST 12/08/2023 18:00 EST TRICIA CAST MD COMMENT: This Pap Test was successfully processed and evaluated with the assistance of the [employer] ThinPrep Test Imaging System. Electronically Signed by Pathology report verified by [facility] Screened by: DANY SAENZ Electronically signed by TRICIA CAST Sign-Out Date: 12/12/2023 17:27 Performing Lab: [facility], [address] [place] [address] Pathology Dept Disclaimer The Pap test is a screening test for cervical cancer. As evidenced by published data, it is subject to both inherent false negative and false positive results. Your patient's results should be interpreted in context with pertinent clinical history including gynecological examination. Normal [facility] ([place]) HPVon 12-10-2023 HPV Interp Normal See Interp HPVN [facility] ([place]) Comment on above: Order Comment: Order placed by AP_HPV_ORDER rule from [id number] Result Comment: High Risk HPV Typing: NEGATIVE [...] and sufficient DNA to be detected. See [facility] HPVN Performed By: #### C BC, ADIFF, PRO, BMP, ANEU, GFR #### [address] [address] HPV Source Cervix Normal [facility] ([place]) Comment on above: Order Comment: Order placed by AP_HPV_ORDER rule from [id number] Performed By: #### C BC, ADIFF, PRO, BMP, ANEU, GFR #### [address] [address] DRUGUon 12-08-2023 Amphetamine (u) Negative Normal Negative [facility] ([place]) Comment on above: Performed By: #### U OXYS DRUGU #### [address] [address] Barbiturate (u) Negative Normal Negative [facility] ([place]) Comment on above: Performed By: #### U OXYS DRUGU #### [address] [address] Benzodiazepine (u) Negative Normal Negative [facility] ([place]) Comment on above: Performed By: #### U OXYS, DRUGU #### [address] [address] Cannabinoid (u) Positive Abnormal Negative [facility] ([place]) Comment on above: Performed By: #### U OXYS, DRUGU #### [address] [address] Cocaine Ql (U) Negative Normal Negative [facility] ([place]) Comment on above: Performed By: #### U OXYS, DRUGU #### [address] [address] Fentanyl (u) Negative Normal Negative [facility] ([place]) Comment on above: Result Comment: Test ing has been performed FOR MEDICAL PURPOSES ONLY. Performed By: #### U OXYS, DRUGU #### [address] [address] Methadone Ql (U) Negative Normal Negative [facility] ([place] Comment on above: Performed By: #### U OXYS, DRUGU #### [address] [address] Opiate (u) Negative Normal Negative [facility] ([place]) Comment on above: Performed By: #### U OXYS, DRUGU #### [place] [id number] Oxycodone (u) Negative Normal Negative [facility] ([place]) Comment on above: Result Comment: Test ing has been performed FOR MEDICAL PURPOSES ONLY. Performed By: #### U OXYS, DRUGU #### [address] [address] PCP (u) Negative Normal Negative [facility] ([place]) Comment on above: Performed By: #### U OXYS, DRUGU #### [address] [address] Propoxyphene (u) Negative Normal Negative [facility] ([place]) Comment on above: Performed By: #### U OXYS, DRUGU #### [address] [address] U pH Drug Scrn 8.0 Normal 5.0-8.0 [facility] ([place]) Comment on above: Performed By: #### U DAMIÁN CAMPBELLU #### [address] [address] Urine Drugs screened: See Below Normal [facility] ([place]) Comment on above: Result Comment: This drug [...] MEDICAL PURPOSES ONLY. Performed By: #### U JAY CAMPBELL #### [address] [address] LABORATORYOrdered By: Alanna Russo on 12-08-2023 Amphetamines [...] NEPHROSTOMY EXCHANGE ORIGINAL EXAMINATION: IR NEPHROSTOMY TUBE [id number]/22/2023 3:02 pm IR NEPHROSTOMY TUBE CHANGE HISTORY: [...] 4:31:01 PM Ordering Provider: FLIP MARTIN Normal [facility] ([place]) DRUGUon 07-30-2023 Amphetamine (u) Negative Normal Negative [facility] ([place]) Comment on above: Performed By: #### U OXYS, DRUGU #### [address] [address] Barbiturate (u) Negative Normal Negative [facility] ([place]) Comment on above: Performed By: #### U OXYS, DRUGU #### [address] [address] Benzodiazepine (u) Negative Normal Negative [facility] ([place]) Comment on above: Performed By: #### U OXYS, DRUGU #### [address] [address] Cannabinoid (u) Positive Abnormal Negative [facility] ([place]) Comment on above: Performed By: #### U OXYS, DRUGU #### [address] [address] Cocaine Ql (U) Negative Normal Negative [facility] ([place]) Comment on above: Performed By: #### U OXYS, DRUGU #### [address] [address] Fentanyl (u) Negative Normal Negative [facility] ([place] Comment on above: Result Comment: Test ing has been performed FOR MEDICAL PURPOSES ONLY. Performed By: #### U OXYS, DRUGU #### [address] [address] Methadone Ql (U) Negative Normal Negative [facility] ([place]) Comment on above: Performed By: #### U OXYS, DRUGU #### [address] [address] Opiate (u) Positive Abnormal Negative [facility] ([place] Comment on above: Performed By: #### U OXYS, DRUGU #### [address] [address] Oxycodone (u) Positive Abnormal Negative [facility] ([place]) Comment on above: Result Comment: Test ing has been performed FOR MEDICAL PURPOSES ONLY. Performed By: #### U OXYS, DRUGU #### [place] [address] PCP (u) Negative Normal Negative [facility] ([place]) Comment on above: Performed By: #### U OXYS, DRUGU #### [address] [address] Propoxyphene (u) Negative Normal Negative [facility] ([place] Comment on above: Performed By: #### U OXYS, DRUGU #### [place] [address] U pH Drug Scrn 5.5 Normal 5.0-8.0 [facility] ([place]) Comment on above: Performed By: #### U OXYS, DRUGU #### [address] [address] Urine Drugs screened: See Below Normal [facility] ([place]) Comment on above: Result Comment: This drug [...] Performed By: #### U ADRIAN DRUGU #### [place] [id number] [address] [place] [address] IR TUNNELED CATHETER INSERTI ON/PORTon 07-28-2023 IR TUNNELED CATHETER INSERTION/PORT ORIGINAL HISTORY: Cervical cancer with port unable to aspirate blood. Fibrin sheath confirmed on venogram 07/24/2023. Port placed 05/02/[address] Mason PROCEDURE: 1. Ultrasound guidance for venous access 2. Port venogram under fluoroscopy 3. Fibrin sheath stripping of right venous chest port VETERINARY BACTERIOLOGIST: Dr. Aparicio FILM PROCESSING UTILITY WORKER: None MATERIALS: 6 Fr sheath Snare J [...] 07/28/2023 8:00:17 PM Ordering Provider: BRITTNI LU [facility] ([place]) IR NEPHROSTOMY TUBE CHANGE L EFT W/GUIDEon [...] to nephrostomy catheter under fluoroscopy LATERALITY: Left VETERINARY BACTERIOLOGIST: Dr. Aparicio FILM PROCESSING UTILITY WORKER: None The procedure, risks, and alternatives, were discussed and all questions were answered. Informed consent obtained. Maximal sterile barrier technique, hand hygiene, skin prep, and sterile ultrasound techniques (if used) utilized. Percutaneous site was sterilely prepped and draped. Time out performed. Drive Away Driver image demonstrates nephroureteral catheter. Contrast injection through [...] unchanged MATERIALS: 10 Fr drainage catheter [employer] [place] bag ANESTHESIA: General anesthesia FLUORO: 1.5 min [...] 07/26/2023 1:06:17 PM Ordering Provider: FLIP Aragon [facility] ([place]) .Auto Diffon 07-16-2023 Basophil, Absolute 0.1 10 3/mcL Normal 0.0-0.3 [facility] ([place]) Comment on above: Performed By: #### C BC, ADIFF, PRO, BMP, ANEU, GFR #### [address] [address] Basophils/100 WBC (Bld) 1.4 % Normal 0.0-2.5 [facility] ([place]) Comment on above: Performed By: #### C BC, ADIFF, PRO, BMP, ANEU, GFR #### [address] [address] Eosinophil, Absolute 0.6 10 3/mcL Normal 0.0-0.7 [facility] ([place]) Comment on above: Performed By: #### C BC, ADIFF, PRO, BMP, ANEU, GFR #### [address] [address] Eosinophils/100 WBC (Bld) 7.7 % High 0.0-6.0 [facility] ([place]) Comment on above: Performed By: #### C BC, ADIFF, PRO, BMP, ANEU, GFR #### [address] [address] Lymphocyte, Absolute 2.1 10 3/mcL Normal 0.9-4.3 [facility] ([place]) Comment on above: Performed By: #### C BC, ADIFF, PRO, BMP, ANEU, GFR #### [address] [address] Lymphocytes/100 WBC (Bld) 26.7 % Normal 20.0-40.0 [facility] ([place]) Comment on above: Performed By: #### C BC, ADIFF, PRO, BMP, ANEU, GFR #### [address] [address] Monocyte, Absolute 1.0 10 3/mcL Normal 0.1-1.4 [facility] ([place]) Comment on above: Performed By: #### C BC, ADIFF, PRO, BMP, ANEU, GFR #### [address] [address] Monocytes/100 WBC (Bld) 12.7 % Normal 2.0-13.0 [facility] ([place]) Comment on above: Performed By: #### C BC, ADIFF, PRO, BMP, ANEU, GFR #### [address] [address] Neutrophils/100 WBC (Bld) 51.5 % Normal 50.0-75.0 [facility] ([place]) Comment on above: Performed By: #### C BC, ADIFF, PRO, BMP, ANEU, GFR #### [address] [address] .GFRon 07-16-2023 GFR >60 Normal [facility] ([place]) Comment on above: Result Comment: GFR Population [...] BC, ADIFF, PRO, BMP, ANEU, GFR #### [address] [address] GFR Non- >[address] [facility] ([place]) Comment on above: Result Comment: GFR Population [...] BC, ADIFF, PRO, BMP, ANEU, GFR #### [place] [address] .NEUABSon 07-16-2023 Neutrophil, Absolute 4.0 10 3/mcL Normal 2.3-8.1 [facility] ([place]) Comment on above: Performed By: #### C BC, ADIFF, PRO, BMP, ANEU, GFR #### [place] [address] CBCon 07-16-2023 Erythrocyte distribution width (RBC) [Ratio] 15.7 % High 11.5-15.5 [facility] ([place]) Comment on above: Performed By: #### C BC, ADIFF, PRO, BMP, ANEU, GFR #### [place] [address] Hematocrit (Bld) [Volume fraction] 36.9 % Normal 34.0-46.0 [facility] ([place]) Comment on above: Performed By: #### C BC, ADIFF, PRO, BMP, ANEU, GFR #### [place] [address] Hgb 12.3 G/dL Normal 12.0-16.0 [facility] ([place]) Comment on above: Performed By: #### C BC, ADIFF, PRO, BMP, ANEU, GFR #### [place] [address] MCH (RBC) [Entitic mass] 30.1 pg Normal 27.0-33.0 [facility] ([place]) Comment on above: Performed By: #### C BC, ADIFF, PRO, BMP, ANEU, GFR #### [place] [address] MCHC 33.3 G/dL Normal 32.0-36.0 [facility] ([place]) Comment on above: Performed By: #### C BC, ADIFF, PRO, BMP, ANEU, GFR #### [place] [address] MCV (RBC) [Entitic vol] 90.3 fL Normal 80.0-99.0 [facility] ([place]) Comment on above: Performed By: #### C BC, ADIFF, PRO, BMP, ANEU, GFR #### [place] [address] Platelet 396 10 3/mcL Normal 150-450 [facility] ([place]) Comment on above: Performed By: #### C BC, ADIFF, PRO, BMP, ANEU, GFR #### [place] [address] Platelet mean volume (Bld) [Entitic vol] 7.1 fL Normal 6.6-10.5 [facility] ([place]) Comment on above: Performed By: #### C BC, ADIFF, PRO, BMP, ANEU, GFR #### [place] [address] RBC 4.08 10 6/mcL Low 4.10-5.30 [facility] ([place]) Comment on above: Performed By: #### C BC, ADIFF, PRO, BMP, ANEU, GFR #### [place] [address] WBC 7.9 10 3/mcL Normal 4.5-10.8 [facility] ([place]) Comment on above: Performed By: #### C BC, ADIFF, PRO, BMP, ANEU, GFR #### [place] [address] CMPon 07-16-2022 ALT/SGPT <7 Low 10-49 [facility] ([place]) Comment on above: Performed By: #### C BC, ADIFF, PRO, BMP, ANEU, GFR #### [place] [address] Bili Total <0.20 Normal 0.20-1.20 [facility] ([place]) Comment on above: Result Comment: Use of this assay is not recommended for patients undergoing treatment with eltrombopag due to the potential for falsely elevated results. Performed By: #### C BC, ADIFF, PRO, BMP, ANEU, GFR #### [place] [id number] BUN/Creatinine Ratio Unable to Calculate Normal 10.0-[address] [facility] ([place]) Comment on above: Result Comment: Unab le to calculate this test result accurately. Results used to calculate this test are outside the reportable range. Performed By: #### C BC, ADIFF, PRO, BMP, ANEU, GFR #### [place] [id number] Urea nitrogen [Mass/Vol] mg/dL Low 8.0-22.0 [facility] ([place]) Comment on above: Performed By: #### C BC, ADIFF, PRO, BMP, ANEU, GFR #### [place] [id number] Albumin Level 2.8 G/dL Low 3.2-4.8 [facility] ([place]) Comment on above: Performed By: #### C BC, ADIFF, PRO, BMP, ANEU, GFR #### [place] [id number] Albumin/Globulin [Mass ratio] 0.8 {ratio} Low 0.9-1.6 [facility] ([place]) Comment on above: Performed By: #### C BC, ADIFF, PRO, BMP, ANEU, GFR #### [place] [id number] ALP [Catalytic activity/Vol] 83 U/L Normal 38-126 [facility] ([place]) Comment on above: Performed By: #### C BC, ADIFF, PRO, BMP, ANEU, GFR #### [place] [id number] AST [Catalytic activity/Vol] 9 U/L Normal 8-34 [facility] ([place]) Comment on above: Performed By: #### C BC, ADIFF, PRO, BMP, ANEU, GFR #### [address] [address] Calcium [Mass/Vol] 9.4 mg/dL Normal 8.7-10.4 [facility] ([place]) Comment on above: Performed By: #### C BC, ADIFF, PRO, BMP, ANEU, GFR #### [address] [address] Chloride [Moles/Vol] 103 mmol/L Normal 98-110 [facility] ([place]) Comment on above: Performed By: #### C BC, ADIFF, PRO, BMP, ANEU, GFR #### [address] [address] CO2 [Moles/Vol] 28 mmol/L Normal 22-32 [facility] ([place]) Comment on above: Performed By: #### C BC, ADIFF, PRO, BMP, ANEU, GFR #### [address] [address] Creatinine [Mass/Vol] 0.76 mg/dL Normal 0.50-1.20 [facility] ([place]) Comment on above: Performed By: #### C BC, ADIFF, PRO, BMP, ANEU, GFR #### [address] [address] Electrolyte Balance 7.0 mEq/L Normal 4.0-15.0 [facility] ([place]) Comment on above: Performed By: #### C BC, ADIFF, PRO, BMP, ANEU, GFR #### [address] [address] Globulin 3.3 G/dL Normal 1.5-3.8 [facility] ([place]) Comment on above: Performed By: #### C BC, ADIFF, PRO, BMP, ANEU, GFR #### [address] [address] Glucose [Mass/Vol] 98 mg/dL Normal 70-110 [facility] ([place]) Comment on above: Performed By: #### C BC, ADIFF, PRO, BMP, ANEU, GFR #### [address] [address] Potassium [Moles/Vol] 4.5 mmol/L Normal 3.5-5.0 [facility] ([place]) Comment on above: Performed By: #### C BC, ADIFF, PRO, BMP, ANEU, GFR #### [place] [id number] [address] [place] [address] Sodium [Moles/Vol] 138 mmol/L Normal 136-145 [facility] ([place]) Comment on above: Performed By: #### C BC, ADIFF, PRO, BMP, ANEU, GFR #### [place] [id number] [address] [place] [address] Total Protein 6.1 G/dL Normal 5.7-8.2 [facility] ([place]) Comment on above: Result Comment: No te - New Reference Range in effect 20 Performed By: #### C BC, ADIFF, PRO, BMP, ANEU, GFR #### [address] [address] LABORATORYOrdered By: SYSTEM SYSTEM on 07-16-2023 Albumin [...] (S/P/Bld) [Vol rate/Area] ml/min/1.73sqm Invalid Interpretation Code [facility] Data Chemistry S Comment on above: Interpretive Data: [...] (S/P/Bld) [Vol rate/Area] ml/min/1.73sqm Invalid Interpretation Code [facility] Data Chemistry S Comment on above: Interpretive Data: [...] 3.8 G/dL AH ADM SS Glucose [Mass/Vol] 98 mg/dL Invalid Interpretation Code 70 - 110 mg/dL AH ADM SS Hematocrit (Bld) [Volume fraction] 36.9 % Invalid Interpretation Code 34.0 - 46.0 % AH Workflow SS Hemoglobin (Bld) [Mass/Vol] 12.3 G/dL [...] 2.0 mg/dL Normal 1.6-2.4 [facility] ([place]) Comment on above: Performed By: #### C LARISA, CHEN, PRO, BMP, ANEU, GFR #### [place] [address] PHOSon 07-16-2023 Phosphate [Mass/Vol] 5.8 mg/dL High 2.4-5.1 [facility] ([place]) Comment on above: Result Comment: No te - New Reference Range in effect 20 Performed By: #### C BC, ADIFF, PRO, BMP, ANEU, GFR #### [address] [address] .Auto Diffon 07-15-2023 Basophil, Absolute 0.1 10 3/mcL Normal 0.0-0.3 [facility] ([place]) Comment on above: Performed By: #### C BC, ADIFF, PRO, BMP, ANEU, GFR #### [address] [address] Basophils/100 WBC (Bld) 1.2 % Normal 0.0-2.5 [facility] ([place]) Comment on above: Performed By: #### C BC, ADIFF, PRO, BMP, ANEU, GFR #### [address] [address] Eosinophil, Absolute 0.6 10 3/mcL Normal 0.0-0.7 [facility] ([place]) Comment on above: Performed By: #### C BC, ADIFF, PRO, BMP, ANEU, GFR #### [address] [address] Eosinophils/100 WBC (Bld) 7.1 % High 0.0-6.0 [facility] ([place]) Comment on above: Performed By: #### C BC, ADIFF, PRO, BMP, ANEU, GFR #### [address] [address] Lymphocyte, Absolute 2.0 10 3/mcL Normal 0.9-4.3 [facility] ([place]) Comment on above: Performed By: #### C BC, ADIFF, PRO, BMP, ANEU, GFR #### [address] [address] Lymphocytes/100 WBC (Bld) 25.6 % Normal 20.0-40.0 [facility] ([place]) Comment on above: Performed By: #### C BC, ADIFF, PRO, BMP, ANEU, GFR #### [address] [address] Monocyte, Absolute 1.1 10 3/mcL Normal 0.1-1.4 [facility] ([place]) Comment on above: Performed By: #### C BC, ADIFF, PRO, BMP, ANEU, GFR #### [address] [address] Monocytes/100 WBC (Bld) 14.0 % High 2.0-13.0 [facility] ([place]) Comment on above: Performed By: #### C BC, ADIFF, PRO, BMP, ANEU, GFR #### [address] [address] Neutrophils/100 WBC (Bld) 52.1 % Normal 50.0-75.0 [facility] ([place]) Comment on above: Performed By: #### C BC, ADIFF, PRO, BMP, ANEU, GFR #### [address] [address] .GFRon 07-15-2023 GFR >60 Normal [facility] ([place]) Comment on above: Result Comment: GFR Population [...] BC, ADIFF, PRO, BMP, ANEU, GFR #### [address] [address] GFR Non- >[address] [facility] ([place]) Comment on above: Result Comment: GFR Population [...] BC, ADIFF, PRO, BMP, ANEU, GFR #### [address] [address] .NEUABSon 07-15-2023 Neutrophil, Absolute 4.0 10 3/mcL Normal 2.3-8.1 [facility] ([place]) Comment on above: Performed By: #### C BC, ADIFF, PRO, BMP, ANEU, GFR #### [place] [address] CBCon 07-15-2023 Erythrocyte distribution width (RBC) [Ratio] 15.2 % Normal 11.5-15.5 [facility] ([place]) Comment on above: Performed By: #### C BC, ADIFF, PRO, BMP, ANEU, GFR #### [place] [address] Hematocrit (Bld) [Volume fraction] 35.2 % Normal 34.0-46.0 [facility] ([place]) Comment on above: Performed By: #### C BC, ADIFF, PRO, BMP, ANEU, GFR #### [place] [address] Hgb 11.9 G/dL Low 12.0-16.0 [facility] ([place]) Comment on above: Performed By: #### C BC, ADIFF, PRO, BMP, ANEU, GFR #### [place] [address] MCH (RBC) [Entitic mass] 30.3 pg Normal 27.0-33.0 [facility] ([place]) Comment on above: Performed By: #### C BC, ADIFF, PRO, BMP, ANEU, GFR #### [place] [address] MCHC 33.7 G/dL Normal 32.0-36.0 [facility] ([place]) Comment on above: Performed By: #### C BC, ADIFF, PRO, BMP, ANEU, GFR #### [place] [address] MCV (RBC) [Entitic vol] 89.9 fL Normal 80.0-99.0 [facility] ([place]) Comment on above: Performed By: #### C BC, ADIFF, PRO, BMP, ANEU, GFR #### [place] [address] Platelet 358 10 3/mcL Normal 150-450 [facility] ([place]) Comment on above: Performed By: #### C BC, ADIFF, PRO, BMP, ANEU, GFR #### [place] [address] Platelet mean volume (Bld) [Entitic vol] 6.9 fL Normal 6.6-10.5 [facility] ([place]) Comment on above: Performed By: #### C BC, ADIFF, PRO, BMP, ANEU, GFR #### [place] [address] RBC 3.92 10 6/mcL Low 4.10-5.30 [facility] ([place]) Comment on above: Performed By: #### C BC, ADIFF, PRO, BMP, ANEU, GFR #### [place] [address] WBC 7.7 10 3/mcL Normal 4.5-10.8 [facility] ([place]) Comment on above: Performed By: #### C BC, ADIFF, PRO, BMP, ANEU, GFR #### [place] [address] CMPon 07-15-2023 Albumin Level 2.8 G/dL Low 3.2-4.8 [facility] ([place]) Comment on above: Performed By: #### C BC, ADIFF, PRO, BMP, ANEU, GFR #### [place] [address] Albumin/Globulin [Mass ratio] 0.9 {ratio} Normal 0.9-1.6 [facility] ([place]) Comment on above: Performed By: #### C BC, ADIFF, PRO, BMP, ANEU, GFR #### [address] [address] ALP [Catalytic activity/Vol] 82 U/L Normal 38-126 [facility] ([place]) Comment on above: Performed By: #### C BC, ADIFF, PRO, BMP, ANEU, GFR #### [address] [address] ALT/SGPT <8 Low 10-49 [facility] ([place]) Comment on above: Performed By: #### C BC, ADIFF, PRO, BMP, ANEU, GFR #### [address] [address] AST [Catalytic activity/Vol] 9 U/L Normal 8-34 [facility] ([place]) Comment on above: Performed By: #### C BC, ADIFF, PRO, BMP, ANEU, GFR #### [address] [address] Bili Total 0.20 mg/dL Normal 0.20-1.20 [facility] ([place]) Comment on above: Result Comment: Use of this assay is not recommended for patients undergoing treatment with eltrombopag due to the potential for falsely elevated results. Performed By: #### C BC, ADIFF, PRO, BMP, ANEU, GFR #### [place] [id number] BUN/Creatinine Ratio 8.1 ratio Low 10.0-22.0 [facility] ([place]) Comment on above: Performed By: #### C BC, ADIFF, PRO, BMP, ANEU, GFR #### [address] [address] Calcium [Mass/Vol] 9.3 mg/dL Normal 8.7-10.4 [facility] ([place]) Comment on above: Performed By: #### C BC, ADIFF, PRO, BMP, ANEU, GFR #### [place] [id number] Chloride [Moles/Vol] 104 mmol/L Normal 98-110 [facility] ([place]) Comment on above: Performed By: #### C BC, ADIFF, PRO, BMP, ANEU, GFR #### [address] [address] CO2 [Moles/Vol] 25 mmol/L Normal 22-32 [facility] ([place]) Comment on above: Performed By: #### C BC, ADIFF, PRO, BMP, ANEU, GFR #### [address] [address] Creatinine [Mass/Vol] 0.74 mg/dL Normal 0.50-1.20 [facility] ([place]) Comment on above: Performed By: #### C BC, ADIFF, PRO, BMP, ANEU, GFR #### [address] [address] Electrolyte Balance 7.0 mEq/L Normal 4.0-15.0 [facility] ([place]) Comment on above: Performed By: #### C BC, ADIFF, PRO, BMP, ANEU, GFR #### [place] [id number] Globulin 3.1 G/dL Normal 1.5-3.8 [facility] ([place]) Comment on above: Performed By: #### C BC, ADIFF, PRO, BMP, ANEU, GFR #### [place] [id number] Glucose [Mass/Vol] 96 mg/dL Normal 70-110 [facility] ([place]) Comment on above: Performed By: #### C BC, ADIFF, PRO, BMP, ANEU, GFR #### [address] [address] Potassium [Moles/Vol] 4.4 mmol/L Normal 3.5-5.0 [facility] ([place]) Comment on above: Performed By: #### C BC, ADIFF, PRO, BMP, ANEU, GFR #### [place] [id number] Sodium [Moles/Vol] 136 mmol/L Normal 136-145 [facility] ([place] Comment on above: Performed By: #### C BC, ADIFF, PRO, BMP, ANEU, GFR #### [place] [id number] Total Protein 5.9 G/dL Normal 5.7-8.2 [facility] ([place]) Comment on above: Result Comment: No te - New Reference Range in effect 20 Performed By: #### C BC, ADIFF, PRO, BMP, ANEU, GFR #### [facility] [address] [place] [address] Urea nitrogen [Mass/Vol] 6.0 mg/dL Low 8.0-22.0 [facility] ([place]) Comment on above: Performed By: #### C BC, ADIFF, PRO, BMP, ANEU, GFR #### [facility] [address] [place] [phone] LABORATORYOrdered By: SYSTEM SYSTEM on 07-15-2023 Albumin [...] 10.4 mg/dL AH ADM SS Chloride [Moles/Vol] 104 mmol/L Invalid Interpretation Code 98 - 110 mEq/L AH ADM SS CO2 [Moles/Vol] 25 mmol/L Invalid Interpretation Code 22 - 32 mEq/L AH ADM SS Creatinine [Mass/Vol] 0.74 mg/dL Invalid [...] (S/P/Bld) [Vol rate/Area] ml/min/1.73sqm Invalid Interpretation Code [facility] Data Chemistry S Comment on above: Interpretive Data: [...] (S/P/Bld) [Vol rate/Area] ml/min/1.73sqm Invalid Interpretation Code [facility] Data Chemistry S Comment on above: Interpretive Data: [...] Code 4.5 - 10.8 10^3/mcL Workflow SS MGon 07-15-2023 Magnesium [Mass/Vol] 2.0 mg/dL Normal 1.6-2.4 [facility] ([place]) Comment on above: Performed By: #### C BC, ADIFF, PRO, BMP, ANEU, GFR #### [place] [address] PHOSon 07-15-2023 Phosphate [Mass/Vol] 5.0 mg/dL Normal 2.4-5.1 [facility] ([place]) Comment on above: Result Comment: No te - New Reference Range in effect 20 Performed By: #### C BC, ADIFF, PRO, BMP, ANEU, GFR #### [place] [address] .Auto Diffon 07-14-2023 Basophil, Absolute 0.1 10 3/mcL Normal 0.0-0.3 [facility] ([place]) Comment on above: Performed By: #### C BC, ADIFF, PRO, BMP, ANEU, GFR #### [address] [address] Basophils/100 WBC (Bld) 0.8 % Normal 0.0-2.5 [facility] ([place]) Comment on above: Performed By: #### C BC, ADIFF, PRO, BMP, ANEU, GFR #### [address] [address] Eosinophil, Absolute 0.5 10 3/mcL Normal 0.0-0.7 [facility] ([place]) Comment on above: Performed By: #### C BC, ADIFF, PRO, BMP, ANEU, GFR #### [address] [address] Eosinophils/100 WBC (Bld) 6.0 % Normal 0.0-6.0 [facility] ([place]) Comment on above: Performed By: #### C BC, ADIFF, PRO, BMP, ANEU, GFR #### [address] [address] Lymphocyte, Absolute 1.6 10 3/mcL Normal 0.9-4.3 [facility] ([place]) Comment on above: Performed By: #### C BC, ADIFF, PRO, BMP, ANEU, GFR #### [address] [address] Lymphocytes/100 WBC (Bld) 21.0 % Normal 20.0-40.0 [facility] ([place]) Comment on above: Performed By: #### C BC, ADIFF, PRO, BMP, ANEU, GFR #### [address] [address] Monocyte, Absolute 1.1 10 3/mcL Normal 0.1-1.4 [facility] ([place]) Comment on above: Performed By: #### C BC, ADIFF, PRO, BMP, ANEU, GFR #### [address] [address] Monocytes/100 WBC (Bld) 14.0 % High 2.0-13.0 [facility] ([place]) Comment on above: Performed By: #### C BC, ADIFF, PRO, BMP, ANEU, GFR #### [address] [address] Neutrophils/100 WBC (Bld) 58.2 % Normal 50.0-75.0 [facility] ([place]) Comment on above: Performed By: #### C BC, ADIFF, PRO, BMP, ANEU, GFR #### [address] [address] .GFRon 07-14-2023 GFR Non- >[address] [facility] ([place]) Comment on above: Result Comment: GFR Population [...] Performed By: #### G FR, BMP #### [address] [address] GFR >60 Normal [facility] ([place]) Comment on above: Result Comment: GFR Population [...] Performed By: #### G FR, BMP #### [address] [address] .NEUABSon 09-11-2023 Neutrophil, Absolute 4.5 10 3/mcL Normal 2.3-8.1 [facility] ([place]) Comment on above: Performed By: #### C BC, ADIFF, PRO, BMP, ANEU, GFR #### [address] [address] CBCon 07-14-2023 Erythrocyte distribution width (RBC) [Ratio] 15.4 % Normal 11.5-15.5 [facility] ([place]) Comment on above: Performed By: #### C BC, ADIFF, PRO, BMP, ANEU, GFR #### [place] [address] Hematocrit (Bld) [Volume fraction] 36.1 % Normal 34.0-46.0 [facility] ([place]) Comment on above: Performed By: #### C BC, ADIFF, PRO, BMP, ANEU, GFR #### [place] [address] Hgb 12.0 G/dL Normal 12.0-16.0 [facility] ([place]) Comment on above: Performed By: #### C BC, ADIFF, PRO, BMP, ANEU, GFR #### [place] [address] MCH (RBC) [Entitic mass] 29.8 pg Normal 27.0-33.0 [facility] ([place]) Comment on above: Performed By: #### C BC, ADIFF, PRO, BMP, ANEU, GFR #### [place] [address] MCHC 33.3 G/dL Normal 32.0-36.0 [facility] ([place]) Comment on above: Performed By: #### C BC, ADIFF, PRO, BMP, ANEU, GFR #### [place] [address] MCV (RBC) [Entitic vol] 89.6 fL Normal 80.0-99.0 [facility] ([place]) Comment on above: Performed By: #### C BC, ADIFF, PRO, BMP, ANEU, GFR #### [place] [address] Platelet 299 10 3/mcL Normal 150-450 [facility] ([place]) Comment on above: Performed By: #### C BC, ADIFF, PRO, BMP, ANEU, GFR #### [address] [address] Platelet mean volume (Bld) [Entitic vol] 7.7 fL Normal 6.6-10.5 [facility] ([place]) Comment on above: Performed By: #### C BC, ADIFF, PRO, BMP, ANEU, GFR #### [address] [address] RBC 4.03 10 6/mcL Low 4.10-5.30 [facility] ([place]) Comment on above: Performed By: #### C BC, ADIFF, PRO, BMP, ANEU, GFR #### [place] [id number] WBC 7.7 10 3/mcL Normal 4.5-10.8 [facility] ([place]) Comment on above: Performed By: #### C BC, ADIFF, PRO, BMP, ANEU, GFR #### [address] [address] CMPon 07-14-2023 BUN/Creatinine Ratio Unable to Calculate Normal 10.0-[address] [facility] ([place]) Comment on above: Result Comment: Unab le to calculate this test result accurately. Results used to calculate this test are outside the reportable range. Performed By: #### G FR, BMP #### [place] [id number] Urea nitrogen [Mass/Vol] mg/dL Low 8.0-22.0 [facility] ([place]) Comment on above: Performed By: #### G FR, BMP #### [place] [id number] Albumin Level 2.8 G/dL Low 3.2-4.8 [facility] ([place]) Comment on above: Performed By: #### G FR, BMP #### [place] [address] Albumin/Globulin [Mass ratio] 0.9 {ratio} Normal 0.9-1.6 [facility] ([place]) Comment on above: Performed By: #### Deondre VALDES, BMP #### [address] [address] ALP [Catalytic activity/Vol] 84 U/L Normal 38-126 [facility] ([place]) Comment on above: Performed By: #### G FR, BMP #### [address] [address] ALT/SGPT <8 Low 10-49 [facility] ([place]) Comment on above: Performed By: #### G , BMP #### [address] [address] AST [Catalytic activity/Vol] 11 U/L Normal 8-34 [facility] ([place]) Comment on above: Performed By: #### Deondre VALDES, BMP #### [address] [address] Bili Total 0.30 mg/dL Normal 0.20-1.20 [facility] ([place]) Comment on above: Result Comment: Use of this assay is not recommended for patients undergoing treatment with eltrombopag due to the potential for falsely elevated results. Performed By: #### Deondre VALDES, BMP #### [address] [address] Calcium [Mass/Vol] 9.2 mg/dL Normal 8.7-10.4 [facility] ([place]) Comment on above: Performed By: #### Deondre VALDES, BMP #### [address] [address] Chloride [Moles/Vol] 105 mmol/L Normal 98-110 [facility] ([place]) Comment on above: Performed By: #### Deondre FR, BMP #### [address] [address] CO2 [Moles/Vol] 26 mmol/L Normal 22-32 [facility] ([place] Comment on above: Performed By: #### Deondre FR, BMP #### [address] [address] Creatinine [Mass/Vol] 0.69 mg/dL Normal 0.50-1.20 [facility] ([place]) Comment on above: Performed By: #### Deondre VALDES, BMP #### [address] [address] Electrolyte Balance 8.0 mEq/L Normal 4.0-15.0 [facility] ([place] Comment on above: Performed By: #### Deondre VALDES, BMP #### [address] [address] Globulin 3.1 G/dL Normal 1.5-3.8 [facility] ([place]) Comment on above: Performed By: #### Deondre VALDES, BMP #### [address] [address] Glucose [Mass/Vol] 86 mg/dL Normal 70-110 [facility] ([place] Comment on above: Performed By: #### Deondre VALDES, BMP #### [address] [address] Potassium [Moles/Vol] 4.3 mmol/L Normal 3.5-5.0 [facility] ([place]) Comment on above: Performed By: #### Deondre VALDES, BMP #### [address] [address] Sodium [Moles/Vol] 139 mmol/L Normal 136-145 [facility] ([place] Comment on above: Performed By: #### Deondre VALDES, BMP #### [address] [address] Total Protein 5.9 G/dL Normal 5.7-8.2 [facility] ([place]) Comment on above: Result Comment: No te - New Reference Range in effect 20 Performed By: #### Deondre VALDES, BMP #### [address] [address] LABORATORYOrdered By: SYSTEM SYSTEM on 07-14-2023 Albumin [...] 2.0 mg/dL Normal 1.6-2.4 [facility] ([place]) Comment on above: Performed By: #### C BC, ADIFF, PRO, BMP, ANEU, GFR #### [place] [address] PHOSon 07-14-2023 Phosphate [Mass/Vol] 5.3 mg/dL High 2.4-5.1 [facility] ([place]) Comment on above: Result Comment: No te - New Reference Range in effect 20 Performed By: #### C BC, ADIFF, PRO, BMP, ANEU, GFR #### [place] [address] .Auto Diffon 07-13-2023 Basophil, Absolute 0.1 10 3/mcL Normal 0.0-0.3 [facility] ([place]) Comment on above: Performed By: #### C BC, ADIFF, PRO, BMP, ANEU, GFR #### [address] [address] Basophils/100 WBC (Bld) 1.2 % Normal 0.0-2.5 [facility] ([place]) Comment on above: Performed By: #### C BC, ADIFF, PRO, BMP, ANEU, GFR #### [address] [address] Eosinophil, Absolute 0.5 10 3/mcL Normal 0.0-0.7 [facility] ([place]) Comment on above: Performed By: #### C BC, ADIFF, PRO, BMP, ANEU, GFR #### [address] [address] Eosinophils/100 WBC (Bld) 5.6 % Normal 0.0-6.0 [facility] ([place]) Comment on above: Performed By: #### C BC, ADIFF, PRO, BMP, ANEU, GFR #### [address] [address] Lymphocyte, Absolute 1.5 10 3/mcL Normal 0.9-4.3 [facility] ([place]) Comment on above: Performed By: #### C BC, ADIFF, PRO, BMP, ANEU, GFR #### [address] [address] Lymphocytes/100 WBC (Bld) 18.4 % Low 20.0-40.0 [facility] ([place]) Comment on above: Performed By: #### C BC, ADIFF, PRO, BMP, ANEU, GFR #### [address] [address] Monocyte, Absolute 0.8 10 3/mcL Normal 0.1-1.4 [facility] ([place]) Comment on above: Performed By: #### C BC, ADIFF, PRO, BMP, ANEU, GFR #### [address] [address] Monocytes/100 WBC (Bld) 10.2 % Normal 2.0-13.0 [facility] ([place]) Comment on above: Performed By: #### C BC, ADIFF, PRO, BMP, ANEU, GFR #### [address] [address] Neutrophils/100 WBC (Bld) 64.6 % Normal 50.0-75.0 [facility] ([place]) Comment on above: Performed By: #### C BC, ADIFF, PRO, BMP, ANEU, GFR #### [address] [address] .GFRon 07-13-2023 GFR >60 Normal [facility] ([place]) Comment on above: Result Comment: GFR Population [...] BC, ADIFF, PRO, BMP, ANEU, GFR #### [address] [address] GFR Non- >[address] [facility] ([place]) Comment on above: Result Comment: GFR Population [...] BC, ADIFF, PRO, BMP, ANEU, GFR #### [address] [address] .NEUABSon 07-13-2023 Neutrophil, Absolute 5.2 10 3/mcL Normal 2.3-8.1 [facility] ([place]) Comment on above: Performed By: #### C BC, ADIFF, PRO, BMP, ANEU, GFR #### [address] [address] CBCon 07-13-2023 Erythrocyte distribution width (RBC) [Ratio] 15.3 % Normal 11.5-15.5 [facility] ([place]) Comment on above: Performed By: #### C BC, ADIFF, PRO, BMP, ANEU, GFR #### [address] [address] Hematocrit (Bld) [Volume fraction] 35.2 % Normal 34.0-46.0 [facility] ([place]) Comment on above: Performed By: #### C BC, ADIFF, PRO, BMP, ANEU, GFR #### [place] [address] Hgb 11.5 G/dL Low 12.0-16.0 [facility] ([place]) Comment on above: Performed By: #### C BC, ADIFF, PRO, BMP, ANEU, GFR #### [place] [address] MCH (RBC) [Entitic mass] 29.5 pg Normal 27.0-33.0 [facility] ([place]) Comment on above: Performed By: #### C BC, ADIFF, PRO, BMP, ANEU, GFR #### [place] [address] MCHC 32.6 G/dL Normal 32.0-36.0 [facility] ([place]) Comment on above: Performed By: #### C BC, ADIFF, PRO, BMP, ANEU, GFR #### [place] [address] MCV (RBC) [Entitic vol] 90.5 fL Normal 80.0-99.0 [facility] ([place]) Comment on above: Performed By: #### C BC, ADIFF, PRO, BMP, ANEU, GFR #### [place] [address] Platelet 295 10 3/mcL Normal 150-450 [facility] ([place]) Comment on above: Performed By: #### C BC, ADIFF, PRO, BMP, ANEU, GFR #### [place] [address] Platelet mean volume (Bld) [Entitic vol] 7.8 fL Normal 6.6-10.5 [facility] ([place]) Comment on above: Performed By: #### C BC, ADIFF, PRO, BMP, ANEU, GFR #### [place] [address] RBC 3.89 10 6/mcL Low 4.10-5.30 [facility] ([place]) Comment on above: Performed By: #### C BC, ADIFF, PRO, BMP, ANEU, GFR #### [address] [address] WBC 8.1 10 3/mcL Normal 4.5-10.8 [facility] ([place]) Comment on above: Performed By: #### C BC, ADIFF, PRO, BMP, ANEU, GFR #### [address] [address] CMPon 07-13-2023 BUN/Creatinine Ratio Unable to Calculate Normal 10.0-[address] [facility] ([place]) Comment on above: Result Comment: Unab le to calculate this test result accurately. Results used to calculate this test are outside the reportable range. Performed By: #### C BC, ADIFF, PRO, BMP, ANEU, GFR #### [address] [address] Urea nitrogen [Mass/Vol] mg/dL Low 8.0-22.0 [facility] ([place]) Comment on above: Performed By: #### C BC, ADIFF, PRO, BMP, ANEU, GFR #### [address] [address] Albumin Level 2.6 G/dL Low 3.2-4.8 [facility] ([place]) Comment on above: Performed By: #### C BC, ADIFF, PRO, BMP, ANEU, GFR #### [address] [address] Albumin/Globulin [Mass ratio] 1.0 {ratio} Normal 0.9-1.6 [facility] ([place]) Comment on above: Performed By: #### C BC, ADIFF, PRO, BMP, ANEU, GFR #### [address] [address] ALP [Catalytic activity/Vol] 78 U/L Normal 38-126 [facility] ([place]) Comment on above: Performed By: #### C BC, ADIFF, PRO, BMP, ANEU, GFR #### [address] [address] ALT/SGPT <8 Low 10-49 [facility] ([place]) Comment on above: Performed By: #### C BC, ADIFF, PRO, BMP, ANEU, GFR #### [address] [address] AST [Catalytic activity/Vol] 9 U/L Normal 8-34 [facility] ([place]) Comment on above: Performed By: #### C BC, ADIFF, PRO, BMP, ANEU, GFR #### [address] [address] Bili Total 0.20 mg/dL Normal 0.20-1.20 [facility] ([place]) Comment on above: Result Comment: Use of this assay is not recommended for patients undergoing treatment with eltrombopag due to the potential for falsely elevated results. Performed By: #### C BC, ADIFF, PRO, BMP, ANEU, GFR #### [address] [address] Calcium [Mass/Vol] 8.7 mg/dL Normal 8.7-10.4 [facility] ([place]) Comment on above: Performed By: #### C BC, ADIFF, PRO, BMP, ANEU, GFR #### [place] [id number] Chloride [Moles/Vol] 107 mmol/L Normal 98-110 [facility] ([place]) Comment on above: Performed By: #### C BC, ADIFF, PRO, BMP, ANEU, GFR #### [address] [address] CO2 [Moles/Vol] 25 mmol/L Normal 22-32 [facility] ([place]) Comment on above: Performed By: #### C BC, ADIFF, PRO, BMP, ANEU, GFR #### [address] [address] Creatinine [Mass/Vol] 0.73 mg/dL Normal 0.50-1.20 [facility] ([place]) Comment on above: Performed By: #### C BC, ADIFF, PRO, BMP, ANEU, GFR #### [address] [address] Electrolyte Balance 7.0 mEq/L Normal 4.0-15.0 [facility] ([place]) Comment on above: Performed By: #### C BC, ADIFF, PRO, BMP, ANEU, GFR #### [address] [address] Globulin 2.7 G/dL Normal 1.5-3.8 [facility] ([place]) Comment on above: Performed By: #### C BC, ADIFF, PRO, BMP, ANEU, GFR #### [address] [address] Glucose [Mass/Vol] 130 mg/dL High 70-110 [facility] ([place]) Comment on above: Performed By: #### C BC, ADIFF, PRO, BMP, ANEU, GFR #### [address] [address] Potassium [Moles/Vol] 3.9 mmol/L Normal 3.5-5.0 [facility] ([place]) Comment on above: Performed By: #### C BC, ADIFF, PRO, BMP, ANEU, GFR #### [address] [address] Sodium [Moles/Vol] 139 mmol/L Normal 136-145 [facility] ([place]) Comment on above: Performed By: #### C BC, ADIFF, PRO, BMP, ANEU, GFR #### [address] [address] Total Protein 5.3 G/dL Low 5.7-8.2 [facility] ([place]) Comment on above: Result Comment: No te - New Reference Range in effect 20 Performed By: #### C BC, ADIFF, PRO, BMP, ANEU, GFR #### [address] [address] MGon 07-13-2023 Magnesium [Mass/Vol] 1.8 mg/dL Normal 1.6-2.4 [facility] ([place]) Comment on above: Performed By: #### C BC, ADIFF, PRO, BMP, ANEU, GFR #### [address] [address] PHOSon 07-13-2023 Phosphate [Mass/Vol] 4.1 mg/dL Normal 2.4-5.1 [facility] ([place]) Comment on above: Result Comment: No te - New Reference Range in effect 20 Performed By: #### C BC, ADIFF, PRO, BMP, ANEU, GFR #### [address] [address] .Auto Diffon 07-12-2023 Basophil, Absolute 0.1 10 3/mcL Normal 0.0-0.3 [facility] ([place]) Comment on above: Performed By: #### C BC, ADIFF, PRO, BMP, ANEU, GFR #### [address] [address] Basophils/100 WBC (Bld) 1.1 % Normal 0.0-2.5 [facility] ([place]) Comment on above: Performed By: #### C BC, ADIFF, PRO, BMP, ANEU, GFR #### [address] [address] Eosinophil, Absolute 0.6 10 3/mcL Normal 0.0-0.7 [facility] ([place]) Comment on above: Performed By: #### C BC, ADIFF, PRO, BMP, ANEU, GFR #### [address] [address] Eosinophils/100 WBC (Bld) 8.1 % High 0.0-6.0 [facility] ([place]) Comment on above: Performed By: #### C BC, ADIFF, PRO, BMP, ANEU, GFR #### [address] [address] Lymphocyte, Absolute 1.4 10 3/mcL Normal 0.9-4.3 [facility] ([place]) Comment on above: Performed By: #### C BC, ADIFF, PRO, BMP, ANEU, GFR #### [address] [address] Lymphocytes/100 WBC (Bld) 18.4 % Low 20.0-40.0 [facility] ([place]) Comment on above: Performed By: #### C BC, ADIFF, PRO, BMP, ANEU, GFR #### [address] [address] Monocyte, Absolute 0.7 10 3/mcL Normal 0.1-1.4 [facility] ([place]) Comment on above: Performed By: #### C BC, ADIFF, PRO, BMP, ANEU, GFR #### [address] [address] Monocytes/100 WBC (Bld) 9.0 % Normal 2.0-13.0 [facility] ([place]) Comment on above: Performed By: #### C BC, ADIFF, PRO, BMP, ANEU, GFR #### [address] [address] Neutrophils/100 WBC (Bld) 63.4 % Normal 50.0-75.0 [facility] ([place]) Comment on above: Performed By: #### C BC, ADIFF, PRO, BMP, ANEU, GFR #### [address] [address] .GFRon 07-12-2023 GFR >60 Normal [facility] ([place]) Comment on above: Result Comment: GFR Population [...] BC, ADIFF, PRO, BMP, ANEU, GFR #### [address] [address] GFR Non- >[address] [facility] ([place]) Comment on above: Result Comment: GFR Population [...] BC, ADIFF, PRO, BMP, ANEU, GFR #### [place] [address] .NEUABSon 07-12-2023 Neutrophil, Absolute 4.8 10 3/mcL Normal 2.3-8.1 [facility] ([place]) Comment on above: Performed By: #### C BC, ADIFF, PRO, BMP, ANEU, GFR #### [place] [address] CBCon 07-12-2023 Erythrocyte distribution width (RBC) [Ratio] 15.7 % High 11.5-15.5 [facility] ([place]) Comment on above: Performed By: #### C BC, ADIFF, PRO, BMP, ANEU, GFR #### [place] [address] Hematocrit (Bld) [Volume fraction] 35.4 % Normal 34.0-46.0 [facility] ([place]) Comment on above: Performed By: #### C BC, ADIFF, PRO, BMP, ANEU, GFR #### [place] [address] Hgb 11.6 G/dL Low 12.0-16.0 [facility] ([place]) Comment on above: Performed By: #### C BC, ADIFF, PRO, BMP, ANEU, GFR #### [place] [address] MCH (RBC) [Entitic mass] 29.9 pg Normal 27.0-33.0 [facility] ([place]) Comment on above: Performed By: #### C BC, ADIFF, PRO, BMP, ANEU, GFR #### [place] [address] MCHC 32.6 G/dL Normal 32.0-36.0 [facility] ([place]) Comment on above: Performed By: #### C BC, ADIFF, PRO, BMP, ANEU, GFR #### [place] [id number] MCV (RBC) [Entitic vol] 91.5 fL Normal 80.0-99.0 [facility] ([place]) Comment on above: Performed By: #### C BC, ADIFF, PRO, BMP, ANEU, GFR #### [place] [address] Platelet 251 10 3/mcL Normal 150-450 [facility] ([place]) Comment on above: Performed By: #### C BC, ADIFF, PRO, BMP, ANEU, GFR #### [place] [address] Platelet mean volume (Bld) [Entitic vol] 7.6 fL Normal 6.6-10.5 [facility] ([place]) Comment on above: Performed By: #### C BC, ADIFF, PRO, BMP, ANEU, GFR #### [place] [address] RBC 3.87 10 6/mcL Low 4.10-5.30 [facility] ([place]) Comment on above: Performed By: #### C BC, ADIFF, PRO, BMP, ANEU, GFR #### [place] [address] WBC 7.5 10 3/mcL Normal 4.5-10.8 [facility] ([place]) Comment on above: Performed By: #### C BC, ADIFF, PRO, BMP, ANEU, GFR #### [place] [address] CMPon 07-12-2023 Albumin Level 2.5 G/dL Low 3.2-4.8 [facility] ([place]) Comment on above: Performed By: #### C BC, ADIFF, PRO, BMP, ANEU, GFR #### [place] [address] Albumin/Globulin [Mass ratio] 0.9 {ratio} Normal 0.9-1.6 [facility] ([place]) Comment on above: Performed By: #### C BC, ADIFF, PRO, BMP, ANEU, GFR #### [address] [address] ALP [Catalytic activity/Vol] 78 U/L Normal 38-126 [facility] ([place]) Comment on above: Performed By: #### C BC, ADIFF, PRO, BMP, ANEU, GFR #### [place] [id number] ALT/SGPT <8 Low 10-49 [facility] ([place]) Comment on above: Performed By: #### C BC, ADIFF, PRO, BMP, ANEU, GFR #### [place] [id number] AST [Catalytic activity/Vol] 10 U/L Normal 8-34 [facility] ([place]) Comment on above: Performed By: #### C BC, ADIFF, PRO, BMP, ANEU, GFR #### [place] [id number] Bili Total <0.20 Normal 0.20-1.20 [facility] ([place]) Comment on above: Result Comment: Use of this assay is not recommended for patients undergoing treatment with eltrombopag due to the potential for falsely elevated results. Performed By: #### C BC, ADIFF, PRO, BMP, ANEU, GFR #### [place] [id number] BUN/Creatinine Ratio 10.8 ratio Normal 10.0-22.0 [facility] ([place]) Comment on above: Performed By: #### C BC, ADIFF, PRO, BMP, ANEU, GFR #### [address] [address] Calcium [Mass/Vol] 8.6 mg/dL Low 8.7-10.4 [facility] ([place]) Comment on above: Performed By: #### C BC, ADIFF, PRO, BMP, ANEU, GFR #### [place] [id number] Chloride [Moles/Vol] 109 mmol/L Normal 98-110 [facility] ([place]) Comment on above: Performed By: #### C BC, ADIFF, PRO, BMP, ANEU, GFR #### [address] [address] CO2 [Moles/Vol] 23 mmol/L Normal 22-32 [facility] ([place]) Comment on above: Performed By: #### C BC, ADIFF, PRO, BMP, ANEU, GFR #### [address] [address] Creatinine [Mass/Vol] 0.74 mg/dL Normal 0.50-1.20 [facility] ([place]) Comment on above: Performed By: #### C BC, ADIFF, PRO, BMP, ANEU, GFR #### [address] [address] Electrolyte Balance 9.0 mEq/L Normal 4.0-15.0 [facility] ([place] Comment on above: Performed By: #### C BC, ADIFF, PRO, BMP, ANEU, GFR #### [place] [id number] Globulin 2.7 G/dL Normal 1.5-3.8 [facility] ([place]) Comment on above: Performed By: #### C BC, ADIFF, PRO, BMP, ANEU, GFR #### [address] [address] Glucose [Mass/Vol] 86 mg/dL Normal 70-110 [facility] ([place] Comment on above: Performed By: #### C BC, ADIFF, PRO, BMP, ANEU, GFR #### [address] [address] Potassium [Moles/Vol] 4.4 mmol/L Normal 3.5-5.0 [facility] ([place]) Comment on above: Performed By: #### C BC, ADIFF, PRO, BMP, ANEU, GFR #### [place] [id number] Sodium [Moles/Vol] 141 mmol/L Normal 136-145 [facility] ([place] Comment on above: Performed By: #### C BC, ADIFF, PRO, BMP, ANEU, GFR #### [place] [address] Total Protein 5.2 G/dL Low 5.7-8.2 [facility] ([place]) Comment on above: Result Comment: No te - New Reference Range in effect 20 Performed By: #### C BC, ADIFF, PRO, BMP, ANEU, GFR #### [place] [address] Urea nitrogen [Mass/Vol] 8.0 mg/dL Normal 8.0-22.0 [facility] ([place]) Comment on above: Performed By: #### C BC, ADIFF, PRO, BMP, ANEU, GFR #### [place] [address] MGon 07-12-2023 Magnesium [Mass/Vol] 2.0 mg/dL Normal 1.6-2.4 [facility] ([place]) Comment on above: Performed By: #### C BC, ADIFF, PRO, BMP, ANEU, GFR #### [place] [id number] PHOSon 07-12-2023 Phosphate [Mass/Vol] 4.1 mg/dL Normal 2.4-5.1 [facility] ([place]) Comment on above: Result Comment: No te - New Reference Range in effect 20 Performed By: #### C BC, ADIFF, PRO, BMP, ANEU, GFR #### [place] [id number] .Auto Diffon 07-11-2023 Basophil, Absolute 0.1 10 3/mcL Normal 0.0-0.3 [facility] ([place]) Comment on above: Performed By: #### C BC, ADIFF, PRO, BMP, ANEU, GFR #### [place] [id number] Basophils/100 WBC (Bld) 0.8 % Normal 0.0-2.5 [facility] ([place]) Comment on above: Performed By: #### C BC, ADIFF, PRO, BMP, ANEU, GFR #### [address] [address] Eosinophil, Absolute 0.6 10 3/mcL Normal 0.0-0.7 [facility] ([place]) Comment on above: Performed By: #### C BC, ADIFF, PRO, BMP, ANEU, GFR #### [address] [address] Eosinophils/100 WBC (Bld) 5.9 % Normal 0.0-6.0 [facility] ([place]) Comment on above: Performed By: #### C BC, ADIFF, PRO, BMP, ANEU, GFR #### [address] [address] Lymphocyte, Absolute 1.3 10 3/mcL Normal 0.9-4.3 [facility] ([place]) Comment on above: Performed By: #### C BC, ADIFF, PRO, BMP, ANEU, GFR #### [address] [address] Lymphocytes/100 WBC (Bld) 12.3 % Low 20.0-40.0 [facility] ([place]) Comment on above: Performed By: #### C BC, ADIFF, PRO, BMP, ANEU, GFR #### [address] [address] Monocyte, Absolute 1.2 10 3/mcL Normal 0.1-1.4 [facility] ([place]) Comment on above: Performed By: #### C BC, ADIFF, PRO, BMP, ANEU, GFR #### [address] [address] Monocytes/100 WBC (Bld) 11.5 % Normal 2.0-13.0 [facility] ([place]) Comment on above: Performed By: #### C BC, ADIFF, PRO, BMP, ANEU, GFR #### [address] [address] Neutrophils/100 WBC (Bld) 69.5 % Normal 50.0-75.0 [facility] ([place]) Comment on above: Performed By: #### C BC, ADIFF, PRO, BMP, ANEU, GFR #### [address] [address] .GFRon 09-08-2023 GFR Non- >[address] [facility] ([place]) Comment on above: Result Comment: GFR Population [...] BC, ADIFF, PRO, BMP, ANEU, GFR #### [place] [address] GFR >60 Normal [facility] ([place] Comment on above: Result Comment: GFR Population [...] BC, ADIFF, PRO, BMP, ANEU, GFR #### [place] [address] .NEUABSon 07-11-2023 Neutrophil, Absolute 7.1 10 3/mcL Normal 2.3-8.1 [facility] ([place]) Comment on above: Performed By: #### C BC, ADIFF, PRO, BMP, ANEU, GFR #### [address] [address] CBCon 07-11-2023 Erythrocyte distribution width (RBC) [Ratio] 15.7 % High 11.5-15.5 [facility] ([place]) Comment on above: Performed By: #### C BC, ADIFF, PRO, BMP, ANEU, GFR #### [place] [address] Hematocrit (Bld) [Volume fraction] 37.2 % Normal 34.0-46.0 [facility] ([place]) Comment on above: Performed By: #### C BC, ADIFF, PRO, BMP, ANEU, GFR #### [place] [address] Hgb 12.2 G/dL Normal 12.0-16.0 [facility] ([place]) Comment on above: Performed By: #### C BC, ADIFF, PRO, BMP, ANEU, GFR #### [place] [address] MCH (RBC) [Entitic mass] 29.9 pg Normal 27.0-33.0 [facility] ([place]) Comment on above: Performed By: #### C BC, ADIFF, PRO, BMP, ANEU, GFR #### [place] [address] MCHC 32.9 G/dL Normal 32.0-36.0 [facility] ([place]) Comment on above: Performed By: #### C BC, ADIFF, PRO, BMP, ANEU, GFR #### [place] [address] MCV (RBC) [Entitic vol] 90.8 fL Normal 80.0-99.0 [facility] ([place] Comment on above: Performed By: #### C BC, ADIFF, PRO, BMP, ANEU, GFR #### [place] [address] Platelet 226 10 3/mcL Normal 150-450 [facility] ([place]) Comment on above: Performed By: #### C BC, ADIFF, PRO, BMP, ANEU, GFR #### [place] [address] Platelet mean volume (Bld) [Entitic vol] 7.6 fL Normal 6.6-10.5 [facility] ([place]) Comment on above: Performed By: #### C BC, ADIFF, PRO, BMP, ANEU, GFR #### [address] [id number] RBC 4.10 10 6/mcL Normal 4.10-5.30 [facility] ([place]) Comment on above: Performed By: #### C BC, ADIFF, PRO, BMP, ANEU, GFR #### [place] [address] WBC 10.3 10 3/mcL Normal 4.5-10.8 [facility] ([place]) Comment on above: Performed By: #### C BC, ADIFF, PRO, BMP, ANEU, GFR #### [address] [id number] CMPon 07-11-2023 Albumin Level 2.7 G/dL Low 3.2-4.8 [facility] ([place]) Comment on above: Performed By: #### C BC, ADIFF, PRO, BMP, ANEU, GFR #### [place] [place] [address] Albumin/Globulin [Mass ratio] 1.0 {ratio} Normal 0.9-1.6 [facility] ([place]) Comment on above: Performed By: #### C BC, ADIFF, PRO, BMP, ANEU, GFR #### [address] [address] ALP [Catalytic activity/Vol] 85 U/L Normal 38-126 [facility] ([place]) Comment on above: Performed By: #### C BC, ADIFF, PRO, BMP, ANEU, GFR #### [place] [id number] ALT/SGPT <8 Low 10-49 [facility] ([place]) Comment on above: Performed By: #### C BC, ADIFF, PRO, BMP, ANEU, GFR #### [place] [id number] AST [Catalytic activity/Vol] 12 U/L Normal 8-34 [facility] ([place]) Comment on above: Performed By: #### C BC, ADIFF, PRO, BMP, ANEU, GFR #### [address] [address] Bili Total 0.20 mg/dL Normal 0.20-1.20 [facility] ([place]) Comment on above: Result Comment: Use of this assay is not recommended for patients undergoing treatment with eltrombopag due to the potential for falsely elevated results. Performed By: #### C BC, ADIFF, PRO, BMP, ANEU, GFR #### [address] [address] BUN/Creatinine Ratio 8.3 ratio Low 10.0-22.0 [facility] ([place]) Comment on above: Performed By: #### C BC, ADIFF, PRO, BMP, ANEU, GFR #### [address] [address] Calcium [Mass/Vol] 8.7 mg/dL Normal 8.7-10.4 [facility] ([place]) Comment on above: Performed By: #### C BC, ADIFF, PRO, BMP, ANEU, GFR #### [address] [address] Chloride [Moles/Vol] 107 mmol/L Normal 98-110 [facility] ([place]) Comment on above: Performed By: #### C BC, ADIFF, PRO, BMP, ANEU, GFR #### [address] [address] CO2 [Moles/Vol] 24 mmol/L Normal 22-32 [facility] ([place]) Comment on above: Performed By: #### C BC, ADIFF, PRO, BMP, ANEU, GFR #### [address] [address] Creatinine [Mass/Vol] 0.84 mg/dL Normal 0.50-1.20 [facility] ([place]) Comment on above: Performed By: #### C BC, ADIFF, PRO, BMP, ANEU, GFR #### [address] [address] Electrolyte Balance 7.0 mEq/L Normal 4.0-15.0 [facility] ([place]) Comment on above: Performed By: #### C BC, ADIFF, PRO, BMP, ANEU, GFR #### [address] [address] Globulin 2.7 G/dL Normal 1.5-3.8 [facility] ([place]) Comment on above: Performed By: #### C BC, ADIFF, PRO, BMP, ANEU, GFR #### [address] [address] Glucose [Mass/Vol] 104 mg/dL Normal 70-110 [facility] ([place]) Comment on above: Performed By: #### C BC, ADIFF, PRO, BMP, ANEU, GFR #### [place] [id number] Potassium [Moles/Vol] 4.2 mmol/L Normal 3.5-5.0 [facility] ([place]) Comment on above: Result Comment: Spec imen slightly hemolyzed. Performed By: #### C BC, ADIFF, PRO, BMP, ANEU, GFR #### [place] [id number] Sodium [Moles/Vol] 138 mmol/L Normal 136-145 [facility] ([place]) Comment on above: Performed By: #### C BC, ADIFF, PRO, BMP, ANEU, GFR #### [place] [id number] Total Protein 5.4 G/dL Low 5.7-8.2 [facility] ([place]) Comment on above: Result Comment: No te - New Reference Range in effect 20 Performed By: #### C BC, ADIFF, PRO, BMP, ANEU, GFR #### [place] [id number] Urea nitrogen [Mass/Vol] 7.0 mg/dL Low 8.0-22.0 [facility] ([place]) Comment on above: Performed By: #### C BC, ADIFF, PRO, BMP, ANEU, GFR #### [address] [address] MGon 07-11-2023 Magnesium [Mass/Vol] 2.1 mg/dL Normal 1.6-2.4 [facility] ([place]) Comment on above: Performed By: #### C BC, ADIFF, PRO, BMP, ANEU, GFR #### [address] [address] PHOSon 07-11-2023 Phosphate [Mass/Vol] 3.4 mg/dL Normal 2.4-5.1 [facility] ([place]) Comment on above: Result Comment: No te - New Reference Range in effect 20 Performed By: #### C BC, ADIFF, PRO, BMP, ANEU, GFR #### [address] [address] .Auto Diffon 07-10-2023 Basophil, Absolute 0.0 10 3/mcL Normal 0.0-0.3 [facility] ([place]) Comment on above: Performed By: #### DAMIÁN OZUNAU #### [address] [address] Basophils/100 WBC (Bld) 0.3 % Normal 0.0-2.5 [facility] ([place]) Comment on above: Performed By: #### DAMIÁN OZUNAU #### [address] [address] Eosinophil, Absolute 0.3 10 3/mcL Normal 0.0-0.7 [facility] ([place]) Comment on above: Performed By: #### U OXYDAMIÁN PattersonU #### [address] [address] Eosinophils/100 WBC (Bld) 3.5 % Normal 0.0-6.0 [facility] ([place]) Comment on above: Performed By: #### U DAMIÁN CAMPBELLU #### [address] [address] Lymphocyte, Absolute 0.6 10 3/mcL Low 0.9-4.3 [facility] ([place]) Comment on above: Performed By: #### U DAMIÁN CAMPBELLU #### [address] [address] Lymphocytes/100 WBC (Bld) 6.8 % Low 20.0-40.0 [facility] ([place]) Comment on above: Performed By: #### JAY OZUNA #### [address] [address] Monocyte, Absolute 0.6 10 3/mcL Normal 0.1-1.4 [facility] ([place]) Comment on above: Performed By: #### JAY OZUNA #### [address] [address] Monocytes/100 WBC (Bld) 7.6 % Normal 2.0-13.0 [facility] ([place]) Comment on above: Performed By: #### JAY OZUNA #### [address] [address] Neutrophils/100 WBC (Bld) 81.8 % High 50.0-75.0 [facility] ([place]) Comment on above: Performed By: #### JAY OZUNA #### [address] [address] .GFRon 07-10-2023 GFR >60 Normal [facility] ([place]) Comment on above: Result Comment: GFR Population [...] mL/min/1.73 square meters Performed By: #### U DAMIÁN CAMPBELLU #### [address] [address] GFR Non- >[address] [facility] ([place]) Comment on above: Result Comment: GFR Population [...] Performed By: #### U OXYS DRUGU #### [address] [address] .NEUABSon 07-10-2023 Neutrophil, Absolute 6.7 10 3/mcL Normal 2.3-8.1 [facility] ([place]) Comment on above: Performed By: #### Rere OXYDAMIÁN PattersonU #### [address] [address] CBCon 07-10-2023 Erythrocyte distribution width (RBC) [Ratio] 16.6 % High 11.5-15.5 [facility] ([place]) Comment on above: Performed By: #### U OXYYesenia DRUGU #### [place] [address] Hematocrit (Bld) [Volume fraction] 35.0 % Normal 34.0-46.0 [facility] ([place]) Comment on above: Performed By: #### U OXYYesenia DRUGU #### [place] [address] Hgb 10.4 G/dL Low 12.0-16.0 [facility] ([place]) Comment on above: Performed By: #### U OXYYesenia DRUGU #### [place] [address] MCH (RBC) [Entitic mass] 29.8 pg Normal 27.0-33.0 [facility] ([place]) Comment on above: Performed By: #### U OXYS DRUGU #### [place] [id number] MCHC 29.6 G/dL Low 32.0-36.0 [facility] ([place]) Comment on above: Performed By: #### U DAMIÁN CAMPBELLU #### [address] [address] MCV (RBC) [Entitic vol] 100.6 fL High 80.0-99.0 [facility] ([place]) Comment on above: Performed By: #### U DAMIÁN CAMPBELLU #### [address] [address] Platelet 220 10 3/mcL Normal 150-450 [facility] ([place]) Comment on above: Performed By: #### U DAMIÁN CAMPBELLU #### [address] [address] Platelet mean volume (Bld) [Entitic vol] 6.8 fL Normal 6.6-10.5 [facility] ([place]) Comment on above: Performed By: #### DAMIÁN OZUNAU #### [address] [address] RBC 3.48 10 6/mcL Low 4.10-5.30 [facility] ([place]) Comment on above: Performed By: #### JAY OZUNA #### [address] [address] WBC 8.2 10 3/mcL Normal 4.5-10.8 [facility] ([place]) Comment on above: Performed By: #### U DAMIÁN CAMPBELLU #### [address] [address] CMPon 07-10-2023 Albumin Level 3.1 G/dL Low 3.2-4.8 [facility] ([place]) Comment on above: Order Comment: Conta minated - nurse draw - notified Rocio Pantoja 07/10/2023 06:20:49 EDT Performed By: #### U OXYJAY Patterson #### [address] [address] Albumin/Globulin [Mass ratio] 1.1 {ratio} Normal 0.9-1.6 [facility] ([place]) Comment on above: Order Comment: Conta minated - nurse draw - notified Rocio Pantoja 07/10/2023 06:20:49 EDT Performed By: #### U OXYS, DRUGU #### [address] [address] ALP [Catalytic activity/Vol] 95 U/L Normal 38-126 [facility] ([place]) Comment on above: Order Comment: Conta minated - nurse draw - notified Rocio Pantoja 07/10/2023 06:20:49 EDT Performed By: #### U OXYS, DRUGU #### [address] [address] ALT/SGPT <8 Low 10-49 [facility] ([place]) Comment on above: Order Comment: Conta minated - nurse draw - notified Rocio Pantoja 07/10/2023 06:20:49 EDT Performed By: #### U OXYS, DRUGU #### [place] [id number] AST [Catalytic activity/Vol] 15 U/L Normal 8-34 [facility] ([place]) Comment on above: Order Comment: Conta minated - nurse draw - notified Rocio Pantoja 07/10/2023 06:20:49 EDT Performed By: #### U OXYS, DRUGU #### [address] [address] Bili Total 0.30 mg/dL Normal 0.20-1.20 [facility] ([place]) Comment on above: Order Comment: Conta minated - nurse draw - notified Rocio Pantoja 07/10/2023 06:20:49 EDT Result Comment: Use of this assay is not recommended for patients undergoing treatment with eltrombopag due to the potential for falsely elevated results. Performed By: #### U OXYS, DRUGU #### [address] [address] BUN/Creatinine Ratio 6.9 ratio Low 10.0-22.0 [facility] ([place]) Comment on above: Order Comment: Conta minated - nurse draw - notified Rocio Pantoja 07/10/2023 06:20:49 EDT Performed By: #### U OXYS, DRUGU #### [address] [address] Calcium [Mass/Vol] 8.8 mg/dL Normal 8.7-10.4 [facility] ([place]) Comment on above: Order Comment: Conta minated - nurse draw - notified Rocio Pantoja 07/10/2023 06:20:49 EDT Performed By: #### U OXYS, DRUGU #### [address] [address] Chloride [Moles/Vol] 106 mmol/L Normal 98-110 [facility] ([place]) Comment on above: Order Comment: Conta minated - nurse draw - notified Rocio Pantoja 07/10/2023 06:20:49 EDT Performed By: #### U OXYS, DRUGU #### [address] [address] CO2 [Moles/Vol] 20 mmol/L Low 22-32 [facility] ([place]) Comment on above: Order Comment: Conta minated - nurse draw - notified Rocio Pantoja 07/10/2023 06:20:49 EDT Performed By: #### U OXYS, DRUGU #### [address] [address] Creatinine [Mass/Vol] 0.87 mg/dL Normal 0.50-1.20 [facility] ([place]) Comment on above: Order Comment: Conta minated - nurse draw - notified Rocio Pantoja 07/10/2023 06:20:49 EDT Performed By: #### U OXYS, DRUGU #### [address] [address] Electrolyte Balance 10.0 mEq/L Normal 4.0-15.0 [facility] ([place]) Comment on above: Order Comment: Conta minated - nurse draw - notified Rocio Pantoja 07/10/2023 06:20:49 EDT Performed By: #### U OXYS, DRUGU #### [address] [address] Globulin 2.8 G/dL Normal 1.5-3.8 [facility] ([place]) Comment on above: Order Comment: Conta minated - nurse draw - notified Rocio Pantoja 07/10/2023 06:20:49 EDT Performed By: #### U OXYYesenia DRUGU #### [address] [address] Glucose [Mass/Vol] 95 mg/dL Normal 70-110 [facility] ([place]) Comment on above: Order Comment: Conta minated - nurse draw - notified Rocio Pantoja 07/10/2023 06:20:49 EDT Performed By: #### U OXYS, DRUGU #### [address] [address] Potassium [Moles/Vol] 4.0 mmol/L Normal 3.5-5.0 [facility] ([place]) Comment on above: Order Comment: Conta minated - nurse draw - notified Rocio Pantoja 07/10/2023 06:20:49 EDT Performed By: #### U OXYYesenia DRUGU #### [address] [address] Sodium [Moles/Vol] 136 mmol/L Normal 136-145 [facility] ([place]) Comment on above: Order Comment: Conta minated - nurse draw - notified Rocio Pantoja 07/10/2023 06:20:49 EDT Performed By: #### U OXYYesenia DRUGU #### [address] [address] Total Protein 5.9 G/dL Normal 5.7-8.2 [facility] ([place]) Comment on above: Order Comment: Conta minated - nurse draw - notified Rocio Pantoja 07/10/2023 06:20:49 EDT Result Comment: No te - New Reference Range in effect 20 Performed By: #### U OXYS, DRUGU #### [address] [address] Urea nitrogen [Mass/Vol] 6.0 mg/dL Low 8.0-22.0 [facility] ([place]) Comment on above: Order Comment: Conta minated - nurse draw - notified Rocio Pantoja 07/10/2023 06:20:49 EDT Performed By: #### U DAMIÁN CAMPBELLU #### [address] [address] MGon 07-10-2023 Magnesium [Mass/Vol] 1.8 mg/dL Normal 1.6-2.4 [facility] ([place]) Comment on above: Performed By: #### DAMIÁN OZUNAU #### [address] [address] PHOSon 07-10-2023 Phosphate [Mass/Vol] 3.2 mg/dL Normal 2.4-5.1 [facility] ([place]) Comment on above: Result Comment: No te - New Reference Range in effect 20 Performed By: #### JAY OZUNA #### [address] [address] .Auto Diffon 07-09-2023 Basophil, Absolute 0.1 10 3/mcL Normal 0.0-0.3 [facility] ([place]) Comment on above: Performed By: #### C BC, ADIFF, PRO, BMP, ANEU, GFR #### [address] [address] Basophils/100 WBC (Bld) 1.2 % Normal 0.0-2.5 [facility] ([place]) Comment on above: Performed By: #### C BC, ADIFF, PRO, BMP, ANEU, GFR #### [address] [address] Eosinophil, Absolute 0.3 10 3/mcL Normal 0.0-0.7 [facility] ([place]) Comment on above: Performed By: #### C BC, ADIFF, PRO, BMP, ANEU, GFR #### [address] [address] Eosinophils/100 WBC (Bld) 4.0 % Normal 0.0-6.0 [facility] ([place]) Comment on above: Performed By: #### C BC, ADIFF, PRO, BMP, ANEU, GFR #### [address] [address] Lymphocyte, Absolute 2.5 10 3/mcL Normal 0.9-4.3 [facility] ([place]) Comment on above: Performed By: #### C BC, ADIFF, PRO, BMP, ANEU, GFR #### [address] [address] Lymphocytes/100 WBC (Bld) 29.3 % Normal 20.0-40.0 [facility] ([place]) Comment on above: Performed By: #### C BC, ADIFF, PRO, BMP, ANEU, GFR #### [address] [address] Monocyte, Absolute 0.7 10 3/mcL Normal 0.1-1.4 [facility] ([place]) Comment on above: Performed By: #### C BC, ADIFF, PRO, BMP, ANEU, GFR #### [address] [address] Monocytes/100 WBC (Bld) 7.9 % Normal 2.0-13.0 [facility] ([place]) Comment on above: Performed By: #### C BC, ADIFF, PRO, BMP, ANEU, GFR #### [address] [address] Neutrophils/100 WBC (Bld) 57.6 % Normal 50.0-75.0 [facility] ([place]) Comment on above: Performed By: #### C BC, ADIFF, PRO, BMP, ANEU, GFR #### [address] [address] .GFRon 07-09-2023 GFR >60 Normal [facility] ([place]) Comment on above: Result Comment: GFR Population [...] BC, ADIFF, PRO, BMP, ANEU, GFR #### [address] [address] GFR Non- >[address] [facility] ([place]) Comment on above: Result Comment: GFR Population [...] BC, ADIFF, PRO, BMP, ANEU, GFR #### [address] [address] .MDWon 07-09-2023 Monocyte Distribution Width 15.99 Normal 0.00-20.00 [facility] ([place]) Comment on above: Result Comment: For ED adult patients suspected of sepsis, MDW<=20.0 does not rule out sepsis or risk of sepsis Performed By: #### C BC, ADIFF, PRO, BMP, ANEU, GFR #### [address] [address] .NEUABSon 07-09-2023 Neutrophil, Absolute 4.9 10 3/mcL Normal 2.3-8.1 [facility] ([place]) Comment on above: Performed By: #### C BC, ADIFF, PRO, BMP, ANEU, GFR #### [place] [address] ABO/Rh (Gel)on 07-09-2023 ABO/Rh Interp Positive Invalid Interpretation Code [facility] ([place]) Comment on above: Performed By: #### C BC, ADIFF, PRO, BMP, ANEU, GFR #### [place] [id number] ABS (Gel)on 07-09-2023 ABSC Interp (Gel) Negative Normal [facility] ([place]) Comment on above: Performed By: #### C BC, ADIFF, PRO, BMP, ANEU, GFR #### [place] [id number] CBCon 07-09-2023 Erythrocyte distribution width (RBC) [Ratio] 16.1 % High 11.5-15.5 [facility] ([place]) Comment on above: Performed By: #### C BC, ADIFF, PRO, BMP, ANEU, GFR #### [place] [address] Hematocrit (Bld) [Volume fraction] 36.4 % Normal 34.0-46.0 [facility] ([place]) Comment on above: Performed By: #### C BC, ADIFF, PRO, BMP, ANEU, GFR #### [place] [address] Hgb 12.0 G/dL Normal 12.0-16.0 [facility] ([place]) Comment on above: Performed By: #### C BC, ADIFF, PRO, BMP, ANEU, GFR #### [place] [address] MCH (RBC) [Entitic mass] 29.8 pg Normal 27.0-33.0 [facility] ([place]) Comment on above: Performed By: #### C BC, ADIFF, PRO, BMP, ANEU, GFR #### [place] [address] MCHC 33.0 G/dL Normal 32.0-36.0 [facility] ([place]) Comment on above: Performed By: #### C BC, ADIFF, PRO, BMP, ANEU, GFR #### [place] [address] MCV (RBC) [Entitic vol] 90.3 fL Normal 80.0-99.0 [facility] ([place]) Comment on above: Performed By: #### C BC, ADIFF, PRO, BMP, ANEU, GFR #### [place] [address] Platelet 344 10 3/mcL Normal 150-450 [facility] ([place]) Comment on above: Performed By: #### C BC, ADIFF, PRO, BMP, ANEU, GFR #### [place] [address] Platelet mean volume (Bld) [Entitic vol] 6.9 fL Normal 6.6-10.5 [facility] ([place]) Comment on above: Performed By: #### C BC, ADIFF, PRO, BMP, ANEU, GFR #### [place] [id number] RBC 4.03 10 6/mcL Low 4.10-5.30 [facility] ([place]) Comment on above: Performed By: #### C BC, ADIFF, PRO, BMP, ANEU, GFR #### [place] [id number] WBC 8.5 10 3/mcL Normal 4.5-10.8 [facility] ([place]) Comment on above: Performed By: #### C BC, ADIFF, PRO, BMP, ANEU, GFR #### [place] [address] CMPon 07-09-2023 Albumin Level 3.6 G/dL Normal 3.2-4.8 [facility] ([place]) Comment on above: Performed By: #### C BC, ADIFF, PRO, BMP, ANEU, GFR #### [place] [address] Albumin/Globulin [Mass ratio] 1.3 {ratio} Normal 0.9-1.6 [facility] ([place]) Comment on above: Performed By: #### C BC, ADIFF, PRO, BMP, ANEU, GFR #### [place] [address] ALP [Catalytic activity/Vol] 87 U/L Normal 38-126 [facility] ([place]) Comment on above: Performed By: #### C BC, ADIFF, PRO, BMP, ANEU, GFR #### [place] [address] ALT/SGPT <8 Low 10-49 [facility] ([place]) Comment on above: Performed By: #### C BC, ADIFF, PRO, BMP, ANEU, GFR #### [address] [address] AST [Catalytic activity/Vol] 12 U/L Normal 8-34 [facility] ([place]) Comment on above: Performed By: #### C BC, ADIFF, PRO, BMP, ANEU, GFR #### [address] [address] Bili Total 0.30 mg/dL Normal 0.20-1.20 [facility] ([place]) Comment on above: Result Comment: Use of this assay is not recommended for patients undergoing treatment with eltrombopag due to the potential for falsely elevated results. Performed By: #### C BC, ADIFF, PRO, BMP, ANEU, GFR #### [place] [id number] BUN/Creatinine Ratio 9.3 ratio Low 10.0-22.0 [facility] ([place]) Comment on above: Performed By: #### C BC, ADIFF, PRO, BMP, ANEU, GFR #### [address] [address] Calcium [Mass/Vol] 8.9 mg/dL Normal 8.7-10.4 [facility] ([place]) Comment on above: Performed By: #### C BC, ADIFF, PRO, BMP, ANEU, GFR #### [address] [address] Chloride [Moles/Vol] 108 mmol/L Normal 98-110 [facility] ([place]) Comment on above: Performed By: #### C BC, ADIFF, PRO, BMP, ANEU, GFR #### [address] [address] CO2 [Moles/Vol] 23 mmol/L Normal 22-32 [facility] ([place]) Comment on above: Performed By: #### C BC, ADIFF, PRO, BMP, ANEU, GFR #### [address] [address] Creatinine [Mass/Vol] 0.86 mg/dL Normal 0.50-1.20 [facility] ([place]) Comment on above: Performed By: #### C BC, ADIFF, PRO, BMP, ANEU, GFR #### [place] [id number] Electrolyte Balance 8.0 mEq/L Normal 4.0-15.0 [facility] ([place]) Comment on above: Performed By: #### C BC, ADIFF, PRO, BMP, ANEU, GFR #### [address] [address] Globulin 2.8 G/dL Normal 1.5-3.8 [facility] ([place]) Comment on above: Performed By: #### C BC, ADIFF, PRO, BMP, ANEU, GFR #### [place] [id number] Glucose [Mass/Vol] 89 mg/dL Normal 70-110 [facility] ([place] Comment on above: Performed By: #### C BC, ADIFF, PRO, BMP, ANEU, GFR #### [address] [address] Potassium [Moles/Vol] 3.3 mmol/L Low 3.5-5.0 [facility] ([place]) Comment on above: Performed By: #### C BC, ADIFF, PRO, BMP, ANEU, GFR #### [place] [id number] Sodium [Moles/Vol] 139 mmol/L Normal 136-145 [facility] ([place]) Comment on above: Performed By: #### C BC, ADIFF, PRO, BMP, ANEU, GFR #### [place] [id number] Total Protein 6.4 G/dL Normal 5.7-8.2 [facility] ([place]) Comment on above: Result Comment: No te - New Reference Range in effect 20 Performed By: #### C BC, ADIFF, PRO, BMP, ANEU, GFR #### [address] [address] Urea nitrogen [Mass/Vol] 8.0 mg/dL Normal 8.0-22.0 [facility] ([place]) Comment on above: Performed By: #### C BC, ADIFF, PRO, BMP, ANEU, GFR #### [address] [address] LABORATORYOrdered By: Emi Dalton on 07-09-2023 Appearance [...] - Microbiology an d Antimicrobial susceptibilityOrdered By: [facility] on 07-09-2023 Bacteria identified Cx Nom (Bld) Culture has been received in lab and is no growth to date. Culture will be held for four weeks. [facility] MGon 07-09-2023 Magnesium [Mass/Vol] 2.0 mg/dL Normal 1.6-2.4 [facility] ([place]) Comment on above: Performed By: #### C BC, ADIFF, PRO, BMP, ANEU, GFR #### [address] [address] No Panel Informationon 07-09 Culture Urine 10,000 - 50,000 cfu/ ml Multiple bacterial morphotypes present. Probable Contamination. Suggest recollection if clinically indicated. [facility] Work Phone: Culture Urine 10,000 - 50,000 cfu/ ml Multiple bacterial morphotypes present. Probable Contamination. Suggest recollection if clinically indicated. [facility] Work Phone: PHOSon 07-09-2023 Phosphate [Mass/Vol] 3.4 mg/dL Normal 2.4-5.1 [facility] ([place]) Comment on above: Result Comment: No te - New Reference Range in effect 20 Performed By: #### C BC, ADIFF, PRO, BMP, ANEU, GFR #### [address] [address] UAon 07-09-2023 Color (U) Red Abnormal [facility] ([place]) Comment on above: Performed By: #### C BC, ADIFF, PRO, BMP, ANEU, GFR #### [address] [address] Glucose (U) [Mass/Vol] Negative Normal Negative [facility] ([place]) Comment on above: Performed By: #### C BC, ADIFF, PRO, BMP, ANEU, GFR #### [address] [address] Ketones Ql (U) Negative Normal Neg-Trace [facility] ([place]) Comment on above: Performed By: #### C BC, ADIFF, PRO, BMP, ANEU, GFR #### [place] [address] UA Appear Turbid Abnormal Clear [facility] ([place]) Comment on above: Performed By: #### C BC, ADIFF, PRO, BMP, ANEU, GFR #### [address] [address] UA Blood Large Abnormal Neg-Trace [facility] ([place]) Comment on above: Performed By: #### C BC, ADIFF, PRO, BMP, ANEU, GFR #### [place] [address] UA Leuk Est Large Abnormal Negative [facility] ([place]) Comment on above: Performed By: #### C BC, ADIFF, PRO, BMP, ANEU, GFR #### [place] [address] UA Nitrite Negative Normal Negative [facility] ([place]) Comment on above: Performed By: #### C BC, ADIFF, PRO, BMP, ANEU, GFR #### [place] [address] UA pH 6.5 Normal 5.0 - 8.0 [facility] ([place]) Comment on above: Performed By: #### C BC, ADIFF, PRO, BMP, ANEU, GFR #### [place] [address] UA Protein >=[address] [facility] ([place]) Comment on above: Performed By: #### C BC, ADIFF, PRO, BMP, ANEU, GFR #### [place] [address] UA Spec Grav 1.025 Normal 1.006-1.029 [facility] ([place]) Comment on above: Performed By: #### C BC, ADIFF, PRO, BMP, ANEU, GFR #### [place] [address] UA Specimen Type Catheter Normal [facility] ([place]) Comment on above: Performed By: #### C BC, ADIFF, PRO, BMP, ANEU, GFR #### [place] [id number] UA Urobilinogen 1.0 E.U./dL Normal 0.2-1.0 [facility] ([place]) Comment on above: Performed By: #### C BC, ADIFF, PRO, BMP, ANEU, GFR #### [place] [address] Urobilinogen (U) [Mass/Vol] Negative Normal Neg-Trace [facility] ([place]) Comment on above: Performed By: #### C BC, ADIFF, PRO, BMP, ANEU, GFR #### [place] [address] Color (U) Yellow Normal [facility] ([place]) Comment on above: Performed By: #### C BC, ADIFF, PRO, BMP, ANEU, GFR #### [place] [address] Glucose (U) [Mass/Vol] Negative Normal Negative [facility] ([place]) Comment on above: Performed By: #### C BC, ADIFF, PRO, BMP, ANEU, GFR #### [place] [address] Ketones Ql (U) Trace Normal Neg-Trace [facility] ([place]) Comment on above: Performed By: #### C BC, ADIFF, PRO, BMP, ANEU, GFR #### [place] [address] UA Appear Cloudy Abnormal Clear [facility] ([place] Comment on above: Performed By: #### C BC, ADIFF, PRO, BMP, ANEU, GFR #### [place] [id number] UA Blood Moderate Abnormal Neg-Trace [facility] ([place] Comment on above: Performed By: #### C BC, ADIFF, PRO, BMP, ANEU, GFR #### [address] [address] [address] UA Leuk Est Moderate Abnormal Negative [facility] ([place]) Comment on above: Performed By: #### C BC, ADIFF, PRO, BMP, ANEU, GFR #### [address] [address] UA Nitrite Negative Normal Negative [facility] ([place]) Comment on above: Performed By: #### C BC, ADIFF, PRO, BMP, ANEU, GFR #### [address] [address] UA pH 6.5 Normal 5.0 - 8.0 [facility] ([place]) Comment on above: Performed By: #### C BC, ADIFF, PRO, BMP, ANEU, GFR #### [address] [address] UA Protein 100 mg/dL Abnormal Negative [facility] ([place]) Comment on above: Performed By: #### C BC, ADIFF, PRO, BMP, ANEU, GFR #### [address] [address] UA Spec Grav 1.020 Normal 1.006-1.029 [facility] ([place]) Comment on above: Performed By: #### C BC, ADIFF, PRO, BMP, ANEU, GFR #### [address] [address] UA Specimen Type Catheter Normal [facility] ([place]) Comment on above: Performed By: #### C BC, ADIFF, PRO, BMP, ANEU, GFR #### [address] [address] UA Urobilinogen 0.2 E.U./dL Normal 0.2-1.0 [facility] ([place]) Comment on above: Performed By: #### C BC, ADIFF, PRO, BMP, ANEU, GFR #### [address] [address] Urobilinogen (U) [Mass/Vol] Negative Normal Neg-Trace [facility] ([place]) Comment on above: Performed By: #### C BC, ADIFF, PRO, BMP, ANEU, GFR #### [address] [address] UAMICon 07-09-2023 UA Bacteria 2+ /hpf Abnormal Negative [facility] ([place]) Comment on above: Performed By: #### C BC, ADIFF, PRO, BMP, ANEU, GFR #### [address] [address] UA Mucous 2+ /hpf Normal [facility] ([place]) Comment on above: Performed By: #### C BC, ADIFF, PRO, BMP, ANEU, GFR #### [address] [address] UA RBC LOADED Abnormal 0-2 [facility] ([place]) Comment on above: Performed By: #### C BC, ADIFF, PRO, BMP, ANEU, GFR #### [address] [address] UA Squam Epithelial 5-10 Normal 0-20 [facility] ([place]) Comment on above: Performed By: #### C BC, ADIFF, PRO, BMP, ANEU, GFR #### [address] [address] UA WBC 10-20 Abnormal 0-5 [facility] ([place]) Comment on above: Performed By: #### C BC, ADIFF, PRO, BMP, ANEU, GFR #### [address] [address] UA Crenated RBCs 3-[address] [facility] ([place]) Comment on above: Performed By: #### C BC, ADIFF, PRO, BMP, ANEU, GFR #### [address] [address] UA Mucous 1+ /hpf Normal [facility] ([place]) Comment on above: Performed By: #### C BC, ADIFF, PRO, BMP, ANEU, GFR #### [address] [address] UA RBC 5-10 Abnormal 0-2 [facility] ([place]) Comment on above: Performed By: #### C BC, ADIFF, PRO, BMP, ANEU, GFR #### [facility] [address] [place] [address] UA Squam Epithelial 5-10 Normal 0-20 [facility] ([place]) Comment on above: Performed By: #### C BC, ADIFF, PRO, BMP, ANEU, GFR #### [facility] [address] [place] [address] UA WBC 25-50 Abnormal 0-5 [facility] ([place]) Comment on above: Performed By: #### C BC, ADIFF, PRO, BMP, ANEU, GFR #### [facility] [address] [place] [id number] LABORATORYOrdered By: SYSTEM SYSTEM on 05-07-2023 Albumin [...] 1.20 mg/dL AH ADM SS Electrolyte Balance 6.0 mEq/L Invalid [...] Invalid Interpretation Code 5.0 - 20.0 mcg/mL ADM SS Comment on above: Result Comment: ..re ad back by Terry Saldana Pharmacist at 05/05/2023 01:00:00 EDT WBC (Bld) [#/Vol] 5.6 103/mcL Invalid Interpretation Code 4.5 - 10.8 10^3/mcL Workflow SS LABORATORYOrdered By: Darien Pruett on 05-05-2023 LDose Vancomycin:(trough) See eMAR (05/05/23 12:19 AM) Invalid Interpretation Code Chemistry S LABORATORYOrdered By: Gabriela Gabriel on 05-02-2023 Appearance (U) Hazy *ABN* (05/02/23 6:22 AM) Invalid Interpretation Code Clear Auto Urine [...] (Urine sed) 3-5 /HPF Invalid Interpretation Code Auto Urine SS UA Leuk Est Moderate *ABN* (05/02/23 6:22 AM) Invalid Interpretation Code Negative AH Auto Urine SS UA Mucous Trace /HPF Invalid Interpretation Code Auto Urine SS UA Nitrite Negative (05/02/23 6:22 AM) Invalid Interpretation Code Negative Auto Urine SS UA pH 7.0 (05/02/23 6:22 AM) Invalid Interpretation Code 5.0 - 8.0 AH Auto Urine SS UA Protein 30 mg/dL Invalid Interpretation Code Negativemg/ dL Auto Urine SS UA RBC Negative Invalid [...] Culture Urine No growth at 48 hours. [facility] Work Phone: Culture Urine No growth at 48 hours. [facility] Work Phone: LABORATORYOrdered By: SYSTEM SYSTEM on [...] or 2. Interpretative criteria are not available. [facility] Work Phone: Cefotaxime ANA LILIA [Susc]on 04-04 Enterococcus faecalis Enterococcus faecalis [facility] Work Phone: Klebsiella oxytoca Raoultella ornithinolytica Klebsiella oxytoca Raoultella ornithinolytica [facility] Work Phone: Myroides odoratimimus Myroides odoratincmus [facility] Work Phone: Vagococcus fluvialis Vagococcus fluvialis [facility] Work Phone: LABORATORYOrdered By: Jesus Pedro on [...] Blood Culture: No Growth at 5 days. [facility] Work Phone: Culture Urine >100,000 cfu/ml Mult iple bacterial morphotypes present. Probable Contamination. Suggest recollection if clinically indicated. [facility] Work Phone: LABORATORYOrdered By: SYSTEM SYSTEM on [...] mg/dL ADM SS MCH (RBC) [Entitic mass] 31.3 pg Invalid Interpretation Code 27.0 - 33.0 pg AH Workflow SS MCHC 32.4 G/dL Invalid Interpretation Code 32.0 - 36.0 G/dL Workflow SS MCV (RBC) [Entitic vol] 96.5 [...] 8.2 G/dL ADM SS RBC (Bld) [#/Vol] 3.37 106/mcL Invalid Interpretation Code 4.10 - 5.30 10^6/mcL AH Workflow SS Sodium [Moles/Vol] 137 mmol/L Invalid Interpretation Code 136 - 145 mEq/L ADM SS Urea nitrogen [Mass/Vol] 9.0 mg/dL Invalid Interpretation Code 8.0 - 22.0 mg/dL ADM SS Urea nitrogen/Creatinine [Mass ratio] 11.7 ratio Invalid Interpretation Code 10.0 - 22.0 ratio ADM SS WBC (Bld) [#/Vol] 6.8 103/mcL Invalid Interpretation Code 4.5 - 10.8 10^3/mcL Workflow SS LABORATORYOrdered By: Daja Muir on 03-03-2023 FLUAV RNA SUZI+probe Ql (Resp) Negative 3 (03/03/23 8:16 AM) Invalid Interpretation Code Negative AH Auto Viro/Sero SS Comment on above: Result Comment: [place] [id number] FLUBV RNA SUZI+probe Ql (Resp) Negative 4 (03/03/23 8:16 AM) Invalid Interpretation Code Negative AH Auto Viro/Sero SS Comment on above: Result Comment: Note s RSV PCR Negative 5 (03/03/23 8:16 AM) Invalid Interpretation Code Negative AH Auto Viro/Sero SS Comment on above: Result Comment: Note s [id number] SARS-CoV-2 (COVID-19) RNA SUZI+probe Ql (Resp) Negative 2 (03/03/23 8:16 AM) Invalid Interpretation Code Negative Auto Viro/Sero SS Comment on above: Result Comment: [place] [id number] LABORATORYOrdered By: SYSTEM SYSTEM on 03-03-2023 Albumin [...] 10^3/mcL AH Workflow SS Eosinophils/100 WBC (Bld) 5.9 % [...] 10^3/mcL AH Workflow SS Monocytes/100 WBC (Bld) 14.5 % [...] 8.2 G/dL ADM SS RBC (Bld) [#/Vol] 3.27 106/mcL [...] Infectious Disease /Intensivists. Please consult Physicians accordingly. [facility] Work Phone: LABORATORYOrdered By: Juan Diego Echevarria [...] (02/23/23 12:36 PM) Invalid Interpretation Code 1.006-1.029 AH Auto [...] test) Ql (U) Negative (02/23/23 12:06 PM) [facility] Work Phone: No Panel Informationon 02-23 Culture Urine No growth at 48 hours. [facility] Work Phone: Microscopic examination of blood, culture Blood Culture: No Growth at 5 days. [facility] Work Phone: cefTRIAXone ANA LILIA [Susc]on Escherichia coli ESBL Escherichia coli ESBL [facility] Work Phone: LABORATORYOrdered By: SYSTEM SYSTEM on [...] AH Workflow SS MCV (RBC) [Entitic vol] 98.3 fL Invalid Interpretation Code 80.0 - 99.0 fL AH Workflow SS Monocytes (Bld) [#/Vol] 0.6 103/mcL Invalid Interpretation Code 0.1 - 1.4 10^3/mcL AH Workflow SS Monocytes/100 WBC (Bld) 11.0 % Invalid Interpretation Code 2.0 - 13.0 % AH Workflow SS Neutrophils (Bld) [#/Vol] 2.6 103/mcL [...] ratio AH ADM SS WBC (Bld) [#/Vol] 5.2 103/mcL [...] 5.0 mEq/L AH ADM SS Protein [Mass/Vol] 4.6 G/dL Invalid [...] 10.4 mg/dL AH ADM SS Chloride [Moles/Vol] 115 mmol/L Invalid [...] 10^3/mcL AH Workflow SS Eosinophils/100 WBC (Bld) 8.5 % [...] 10^3/mcL AH Workflow SS Monocytes/100 WBC (Bld) 8.3 % [...] D3 [Mass/Vol] 18.6 ng/mL Invalid Interpretation Code ADM SS Albumin BCP dye [Mass/Vol] 3.8 [...] 10^3/mcL AH Workflow SS Monocytes/100 WBC (Bld) 6.3 % Invalid Interpretation Code 2.0 - 13.0 % AH Workflow SS Neutrophils (Bld) [#/Vol] 6.0 103/mcL Invalid Interpretation Code 2.3 - 8.1 10^3/mcL AH Workflow SS Neutrophils/100 WBC (Bld) 67.5 % Invalid Interpretation Code 50.0 - 75.0 % AH Workflow SS Phosphate [Mass/Vol] 3.1 mg/dL Invalid [...] - Microbiology an d Antimicrobial susceptibilityOrdered By: [facility] on 01-01-2023 Bacteria identified Cx Nom (Bld) Culture has been received in lab and is no growth to date. Culture will be held for four weeks. [facility] No Panel Informationon 01-01 Culture Urine >100,000 cfu/ml Multiple bacterial morphotypes present. Probable Contamination. Suggest recollection if clinically indicated. [facility] Work Phone: Culture Urine >100,000 cfu/ml Multiple bacterial morphotypes present. Probable Contamination. Suggest recollection if clinically indicated. [facility] Work Phone: LABORATORYOrdered By: SYSTEM SYSTEM on 11-15-2022 Basophils (Bld) [#/Vol] 0.0 103/mcL Invalid Interpretation Code 0.0 - 0.3 10^3/mcL Workflow SS Basophils/100 WBC (Bld) 0.3 % Invalid Interpretation Code 0.0 - 2.5 % Workflow SS Creatinine [Mass/Vol] 0.80 mg/dL Invalid Interpretation Code 0.50 - 1.20 mg/dL ADM SS Eosinophils (Bld) [#/Vol] 0.4 103/mcL Invalid Interpretation Code 0.0 - 0.7 10^3/mcL Workflow SS Eosinophils/100 WBC (Bld) 4.7 % [...] Code 150 - 450 10^3/mcL Workflow SS RBC (Bld) [#/Vol] 3.96 106/mcL [...] 1.4 10^3/mcL Workflow SS Monocytes/100 WBC (Bld) 11.1 % [...] 1.4 10^3/mcL Workflow SS Monocytes/100 WBC (Bld) 12.4 % [...] Culture Urine No growth at 48 hours. [facility] Work Phone: LABORATORYOrdered By: Alicia Gardiner on [...] - Microbiology an d Antimicrobial susceptibilityOrdered By: [facility] on 09-30-2022 Bacteria identified Cx Nom (Bld) Culture has been received in lab and is no growth to date. Culture will be held for four weeks. [facility] No Panel Informationon 09-30 Culture Urine >100,000 cfu/ml Mult iple bacterial morphotypes present. Probable Contamination. Suggest recollection if clinically indicated. [facility] Work Phone: LABORATORYOrdered By: SYSTEM SYSTEM on [...] AH ADM SS Hematocrit (Bld) [Volume fraction] 43.5 [...] 10.4 mg/dL AH ADM SS Chloride [Moles/Vol] 108 mmol/L Invalid Interpretation Code 98 - 110 mEq/L ADM SS CO2 [Moles/Vol] 25 mmol/L Invalid Interpretation Code 22 - 32 mEq/L ADM SS Creatinine [Mass/Vol] 0.85 mg/dL Invalid Interpretation Code 0.50 - 1.20 mg/dL AH ADM SS Electrolyte Balance 6.0 mEq/L Invalid [...] 0.7 10^3/mcL Workflow SS Eosinophils/100 WBC (Bld) 9.8 % [...] AH ADM SS MCH (RBC) [Entitic mass] 34.1 [...] mg/dL ADM SS MCH (RBC) [Entitic mass] 33.5 pg Invalid Interpretation Code 27.0 - 33.0 pg Workflow SS MCHC 33.5 G/dL Invalid Interpretation Code 32.0 - 36.0 G/dL Workflow SS MCV (RBC) [Entitic vol] 100.1 fL Invalid Interpretation Code 80.0 - 99.0 fL Workflow SS Monocytes (Bld) [#/Vol] 0.7 103/mcL Invalid Interpretation Code 0.1 - 1.4 10^3/mcL Workflow SS Monocytes/100 WBC (Bld) 12.6 % Invalid Interpretation Code 2.0 - 13.0 % Workflow SS Neutrophils (Bld) [#/Vol] 2.8 103/mcL Invalid Interpretation Code 2.3 - 8.1 10^3/mcL Workflow SS Neutrophils/100 WBC (Bld) 47.7 % Invalid Interpretation Code 50.0 - 75.0 % Workflow SS Phosphate [Mass/Vol] 2.9 mg/dL Invalid [...] or 2. Interpretative criteria are not available. [facility] Work Phone: Amikacin ANA LILIA [place]on 2021 Corynebacterium amycolatum Corynebacterium amycolatum [facility] Work Phone: Escherichia coli ESBL Escherichia coli ESBL [facility] Work Phone: LABORATORYOrdered By: Nilda Flores on [...] Invalid Interpretation Code 10.0 - 22.0 ratio GWP SS Calcium.ionized (Bld) [Moles/Vol] 1.21 mmol/L Invalid Interpretation Code 1.12 - 1.32 mmol/L CC GWP SS Chloride [Moles/Vol] 112 mmol/L Invalid Interpretation Code 98 - 110 mEq/L GWP SS CO2 [Moles/Vol] 18 mmol/L Invalid Interpretation Code 22 - 32 mEq/L CC GWP SS Creatinine [Mass/Vol] 0.88 mg/dL Invalid Interpretation Code 0.50 - 1.20 mg/dL CC GWP SS Electrolyte Balance 8.0 mEq/L Invalid Interpretation Code 4.0 - 15.0 mEq/L GWP SS Glucose [Mass/Vol] 97 mg/dL Invalid Interpretation Code 70 - 110 mg/dL GWP SS Potassium [Moles/Vol] 3.7 mmol/L Invalid Interpretation Code 3.5 - 5.0 [facility]Eq/L [facility] Sodium [Moles/Vol] 138 mmol/L Invalid Interpretation Code 136 - 145 mEq/L [facility] SS Urea nitrogen [Mass/Vol] 9.1 mg/dL Invalid Interpretation Code 8.0 - 22.0 mg/dL [facility] SS LABORATORYOrdered By: Hilda Kirk on 08-08-2022 Creatinine (U) [Mass/Vol] 112.1 mg/dL Invalid Interpretation Code ADM SS Protein (U) [Mass/Vol] 141.4 mg/dL Invalid Interpretation Code ADM SS U Ratio Prot/Creat 1.3 ratio Invalid Interpretation Code ADM SS No Panel Informationon 08-08 Culture Urine >100,000 cfu/ml Multiple bacterial morphotypes present. Probable Contamination. Suggest recollection if clinically indicated. [facility] Work Phone: LABORATORYOrdered By: SYSTEM SYSTEM on [...] % AH Workflow SS Hemoglobin (Bld) [Mass/Vol] 12.5 G/dL Invalid Interpretation Code 12.0 - 16.0 G/dL AH Workflow SS Lymphocytes (Bld) [#/Vol] 1.8 103/mcL Invalid Interpretation Code 0.9 - 4.3 10^3/mcL AH Workflow SS Lymphocytes/100 WBC (Bld) 30.1 % Invalid Interpretation Code 20.0 - 40.0 % AH Workflow SS Magnesium [Mass/Vol] 2.1 mg/dL Invalid Interpretation Code 1.6 - 2.4 mg/dL ADM SS MCH (RBC) [Entitic mass] 33.6 pg Invalid Interpretation Code 27.0 - 33.0 pg AH Workflow SS MCHC 33.4 G/dL Invalid Interpretation Code 32.0 - 36.0 G/dL AH Workflow SS MCV (RBC) [Entitic vol] 100.7 [...] 10^3/mcL AH Workflow SS Monocytes/100 WBC (Bld) 11.9 % Invalid Interpretation Code 2.0 - 13.0 % AH Workflow SS Neutrophils (Bld) [#/Vol] 3.0 103/mcL Invalid Interpretation Code 2.3 - 8.1 10^3/mcL AH Workflow SS Neutrophils/100 WBC (Bld) 51.2 % Invalid Interpretation Code 50.0 - 75.0 % AH Workflow SS Phosphate [Mass/Vol] 2.5 mg/dL Invalid Interpretation Code 2.4 - 5.1 mg/dL ADM SS Platelet mean volume (Bld) [Entitic vol] 6.6 fL Invalid Interpretation Code 6.6 - 10.5 fL AH Workflow SS Platelets (Bld) [#/Vol] 381 103/mcL Invalid Interpretation Code 150 - 450 10^3/mcL AH Workflow SS Potassium [Moles/Vol] 3.5 mmol/L Invalid [...] 34.0 - 46.0 % Workflow SS Hgb 12.1 G/dL Invalid Interpretation Code 12.0 - 16.0 G/dL Workflow SS Lymphocyte, Absolute 1.6 103/mcL Invalid [...] 16.0 G/dL AH Workflow SS Lymphocyte, Absolute 2.4 103/mcL Invalid Interpretation Code 0.9 - 4.3 10^3/mcL AH Workflow SS Lymphocytes/100 WBC (Bld) 29.0 % Invalid Interpretation Code 20.0 - 40.0 % AH Workflow SS Magnesium [Mass/Vol] 1.9 mg/dL Invalid Interpretation Code 1.6 - 2.4 mg/dL AH ADM SS MCH (RBC) [Entitic mass] 33.4 [...] 5.0 mEq/L AH ADM SS Protein [Mass/Vol] 5.8 G/dL Invalid [...] - 22.0 ratio AH ADM SS WBC 8.1 103/mcL Invalid Interpretation Code 4.5 - 10.8 10^3/mcL AH Workflow SS No Panel Informationon 04-15 Culture Urine <10,000 cfu/ml. No Significant growth. Sensitivity not indicated. [facility] Work Phone: No Panel Informationon 04-14 Culture Urine >100,000 cfu/ml Escherichia coli ESBL Extended-Spectrum B-Lactamase isolate may be clinically resistant to therapy with Penicillins, Cephalosporinsor Aztreonam despite apparent in vitro susceptibility to some of these agents. Use of Imipenem is currently restricted to Infectious Disease /Intensivists. Please consult Physicians accordingly. >100,000 cfu/ml Enterococcus faecalis [facility] Work Phone: Enterococcus faecalis Enterococcus faecalis [facility] Work Phone: Escherichia coli ESBL Escherichia coli ESBL [facility] Work Phone: LABORATORYOrdered By: Oc De Leon on 12-21-2021 Beta HCG ( test) Ql (U) Negative (12/21/21 11:24 AM) [facility] Work Phone: Clinical Event Note-Hospital ist Follow [...] no voice mail Electronic Signatures: Akin Lewis ([employer]AS[employer] OPERATOR-EMPLOYER RELATIONS REPRESENTATIVE) (Signed 20-Jul-2021 02:23) Authored: Clinical Event Note Last Updated: 20-Jul-2021 02:23 by Akin Lewis ([employer] OPERATOR-EMPLOYER RELATIONS REPRESENTATIVE) Normal [facility] BASIC METABOLIC PANELon 09-1 Anion gap [Moles/Vol] 13 mmol/L Normal 10 - 20 [facility] Comment on above: Performed By: #### B MP #### [facility] [address] [place] [address] Calcium [Mass/Vol] 9.3 mg/dL Normal 8.6 - 10.6 [facility] Comment on above: Performed By: #### B MP #### [facility] [address] [place] [address] Chloride [Moles/Vol] 107 mmol/L Normal 98 - 107 [facility] Comment on above: Performed By: #### B MP #### [facility] [address] [place] [address] Creatinine [Mass/Vol] 0.76 mg/dL Normal 0.50 - 1.05 [facility] Comment on above: Performed By: #### B MP #### [facility] [address] [place] [address] GFR- AM. >60 Normal >60 [facility] Comment on above: Result Comment: CALC ULATIONS OF ESTIMATED GFR ARE PERFORMED USING THE MDRD STUDY EQUATION FOR THE IDMS-TRACEABLE CREATININE METHODS. CLIN CHEM 2007;53:766-72 Performed By: #### B MP #### [facility] [address] [place] [address] GFR-NON AM. >60 Normal >60 [facility] Comment on above: Performed By: #### B MP #### [facility] [address] [place] [address] Glucose [Mass/Vol] 77 mg/dL Normal 74 - 99 [facility] Comment on above: Performed By: #### B MP #### [facility] [address] [place] [address] HCO3 (Bld) [Moles/Vol] 26 mmol/L Normal 21 - 32 [facility] Comment on above: Performed By: #### B MP #### [facility] [address] [place] [address] Potassium [Moles/Vol] 4.2 mmol/L Normal 3.5 - 5.3 [facility] Comment on above: Performed By: #### B MP #### [facility] [address] [place] [address] Sodium [Moles/Vol] 142 mmol/L Normal 136 - 145 [facility] Comment on above: Performed By: #### B MP #### [facility] [address] [place] [address] Urea nitrogen [Mass/Vol] 8 mg/dL Normal 6 - 23 [facility] Comment on above: Performed By: #### B MP #### [facility] [address] [place] [address] CBCon 07-14-2021 Erythrocyte distribution width (RBC) [Ratio] 13.8 % Normal 11.5 - 14.5 [facility] Comment on above: Performed By: #### C BC #### [facility] [address] [place] [address] Hematocrit (Bld) [Volume fraction] 35.6 % Low 36.0 - 46.0 [facility] Comment on above: Performed By: #### C BC #### [facility] [address] [place] [address] Hemoglobin (Bld) [Mass/Vol] 12.3 g/dL Normal 12.0 - 16.0 [facility] Comment on above: Performed By: #### C BC #### [facility] [address] [place] [address] MCHC (RBC) [Mass/Vol] 34.6 g/dL Normal 32.0 - 36.0 [facility] Comment on above: Performed By: #### C BC #### [facility] [address] [place] [address] MCV (RBC) [Entitic vol] 108 fL High 80 - 100 U [facility] Comment on above: Performed By: #### C BC #### [facility] [address] [place] [address] NUCLEATED RBC 0.0 /100 WBC Normal 0.0-0.0 [facility] Comment on above: Performed By: #### C BC #### [facility] [address] [place] [address] Platelets (Bld) [#/Vol] 462 10*3/uL High 150 - 450 [facility] Comment on above: Performed By: #### C BC #### [facility] [address] [place] [address] RBC 3.29 x10E12/L Low 4.00 - 5.20 [facility] Comment on above: Performed By: #### C BC #### [facility] [address] [place] [address] WBC (Bld) [#/Vol] 6.6 10*3/uL Normal 4.4 - 11.3 [facility] Comment on above: Performed By: #### C BC #### [facility] [address] [place] [address] Order Reconciliationon 07-14 Order Reconciliation Page 1 [...] patch TransDermal Every 24 HoursNotes from Pharmacy: RA 12-Jul-2021 20:53 Nicotine 14 mg/ 24 hour [...] be shared with your follow-up providers (doctor, automobile service station manager, physical therapist, etc.). Guidelines for a [...] be shared with your follow-up providers (doctor, automobile service station manager, physical therapist, etc.). Guidelines for a Healthy Lifestyle LORazepam 1 mg oral tablet 1 tab(s) orally 3 times a day, As Needed sulfamethoxazole-trimeth oprim 800 mg-160 mg oral tablet 1 tab(s) orally every 12 hours Normal [facility] BASIC METABOLIC PANELon 09-1 Anion gap [Moles/Vol] 9 mmol/L Low 10 - 20 [facility] Comment on above: Performed By: #### B MP #### [facility] [address] [place] [address] Calcium [Mass/Vol] 8.7 mg/dL Normal 8.6 - 10.6 [facility] Comment on above: Performed By: #### B MP #### [facility] [address] [place] [address] Chloride [Moles/Vol] 105 mmol/L Normal 98 - 107 [facility] Comment on above: Performed By: #### B MP #### [facility] [address] [place] [address] Creatinine [Mass/Vol] 0.67 mg/dL Normal 0.50 - 1.05 [facility] Comment on above: Performed By: #### B MP #### [facility] [address] [place] [address] GFR- AM. >60 Normal >60 [facility] Comment on above: Result Comment: CALC ULATIONS OF ESTIMATED GFR ARE PERFORMED USING THE MDRD STUDY EQUATION FOR THE IDMS-TRACEABLE CREATININE METHODS. CLIN CHEM 2007;53:766-72 Performed By: #### B MP #### [facility] [address] [place] [address] GFR-NON AM. >60 Normal >60 [facility] Comment on above: Performed By: #### B MP #### [facility] [address] [place] [address] Glucose [Mass/Vol] 89 mg/dL Normal 74 - 99 [facility] Comment on above: Performed By: #### B MP #### [facility] [address] [place] [address] HCO3 (Bld) [Moles/Vol] 28 mmol/L Normal 21 - 32 [facility] Comment on above: Performed By: #### B MP #### [facility] [address] [place] [address] Potassium [Moles/Vol] 4.2 mmol/L Normal 3.5 - 5.3 [facility] Comment on above: Performed By: #### B MP #### [facility] [address] [place] [address] Sodium [Moles/Vol] 138 mmol/L Normal 136 - 145 [facility] Comment on above: Performed By: #### B MP #### [facility] [address] [place] [address] Urea nitrogen [Mass/Vol] 7 mg/dL Normal 6 - 23 [facility] Comment on above: Performed By: #### B MP #### [facility] [address] [place] [address] CBCon 07-13-2021 Erythrocyte distribution width (RBC) [Ratio] 13.7 % Normal 11.5 - 14.5 [facility] Comment on above: Performed By: #### C BC #### [facility] [address] [place] [address] Hematocrit (Bld) [Volume fraction] 35.5 % Low 36.0 - 46.0 [facility] Comment on above: Performed By: #### C BC #### [facility] [address] [place] [address] Hemoglobin (Bld) [Mass/Vol] 11.7 g/dL Low 12.0 - 16.0 [facility] Comment on above: Performed By: #### C BC #### [facility] [facility] [address] [place] [address] MCHC (RBC) [Mass/Vol] 33.0 g/dL Normal 32.0 - 36.0 [facility] Comment on above: Performed By: #### C BC #### [facility] [address] [place] [address] MCV (RBC) [Entitic vol] 109 fL High 80 - 100 U [facility] Comment on above: Performed By: #### C BC #### [facility] [address] [place] [address] NUCLEATED RBC 0.0 /100 WBC Normal 0.0-0.0 [facility] Comment on above: Performed By: #### C BC #### [facility] [address] [place] [address] Platelets (Bld) [#/Vol] 425 10*3/uL Normal 150 - 450 [facility] Comment on above: Performed By: #### C BC #### [facility] [address] [place] [address] RBC 3.26 x10E12/L Low 4.00 - 5.20 [facility] Comment on above: Performed By: #### C BC #### [facility] [address] [place] [address] WBC (Bld) [#/Vol] 5.9 10*3/uL Normal 4.4 - 11.3 [facility] Comment on above: Performed By: #### C #### [facility] [address] [place] [address] Daily Progress Note-Medicine on 07-13-2021 Daily Progress Note-Medicine Service: Medicine Subjective Data: LALY NAVAS is a 30 year old Female who is Hospital Day # 3. Patient states she is feeling better today. Still having some pain around the left nephrostomy tube. Objective Data: Objective Information: T PRBPSpO2 [id number]/84441% Date/Time07/13 16: 16: 16: 16: 16:02 Range(36.8C - 37.3C ) (68 - 90 ) (18 - 18 ) (109 - 120 )/ (75 - 93 ) (98% - 100% ) Highest temp of 37.3 C was recorded at 07/13 8:26 Pain reported at 07/13 6:36: 7 = Severe ---- Intake and Output ----- Mn/Dy/Year TimeIntakeOutputNet Jul 13, 2021 2:00 [id number] Jul 13, 2021 6:00 [id number] Jul 12, 2021 10:00 [id number] The Intake and Output Totals for the last 24 hours are: IntakeOutputNet [id number] Physical Exam by System: Constitutional: Well developed, [...] Updated: 13-Jul-2021 19:06 by Shira Teran) Normal [facility] Discharge [id number] Discharge Profile2 Discharge Orders: Anticipated Discharge Date: Anticipated Discharge [id number] Hospital Providers: Provider RoleProvider Name AttendingShira Teran DNAR: DNAR Status: none Activity: activity as tolerated. Diet: Dietresume normal diet Provider FINAL REVIEW of Orders: Final Review: Final Review of Medication Reconciliation and Orders Completedby Physician Reviewing ProviderShira Teran MD at 14-Jul-2021 14:12:33 Appointments: Follow-Up Appointment 01: Physician/Dept/ServiceDr Polo Plummer Reason for ReferralFollow up Scheduled Date/Clas31-[id number] 11:10 [facility], [address] [place] [address], [address], [place] [address] Phone [phone] Electronic Signatures: Shira Teran) (Signed 14-Jul-2021 14:12) Authored: Discharge Orders, Provider FINAL REVIEW of Orders Delmar Ramos (BRIM GREASER OPERATOR-EMPLOYER RELATIONS REPRESENTATIVE) (Signed 13-Jul-2021 10:30) Authored: Discharge Orders, Appointments, Gold Form - Optical Model Maker And Tester Summary Last Updated: 14-Jul-2021 14:12 by Shira Teran) Normal [facility] LACTATEon 07-13-2021 Lactate [Moles/Vol] 1.2 mmol/L Normal 0.4 - 2.0 [facility] Comment on above: Result Comment: Roseline puncture immediately after or during the administration of Metamizole may lead to falsely low results. Testing should be performed immediately prior to Metamizole dosing. Performed By: #### L ACT #### [facility] [address] [place] [address] Admission Risk Screen - Adul ton 07-12-2021 Admission Risk Screen - Adult Allergies: Allergies: No Known Allergies: Patient Verification: New W ID Band Applied in my Departmentno Type of ID Patient is WearingW wristband, but not applied here Patient Transferred from Other Facility ([facility], [facility],etc)no Patient Identity [...] AlertFor Ebola-like Symptoms: Isolate Patient and Notify Provider/Office Helper For Contact: Notify Provider/Office Helper Advance Directive: Advance Directive/DNRno (1) Advance Directive [...] Learning Preferencesverbal instruction Cultural Considerationsnone Developmental Considerationsnone Rastafari Considerationsnone Learning Assessment (Other Learner): Other learner availableno Depression Screen: During the past month, have you often been bothered by feeling down, depressed or hopelessyes During the past month, have you often had little interest or pleasure in doing thingsyes Have you had any thoughts of harming anyone elseno (2) [place] Suicide: Risk Screen Not Applicable/Able to Answerable to be screened In the Past Month: Have you wished you were or could go to sleep and not wake upno(2) In the Past Month: Have you had any actual thoughts of killing yourself no(2) Lifetime: Have you ever done, started to do, or prepared to do anything to end your lifeno [place] Suicide Risknegative Adult Nutrition Screen: Have you [...] (nonverbal)verbalization Chroni (more content not included)... Normal [facility] BASIC METABOLIC PANELon 09-0 Anion gap [Moles/Vol] 12 mmol/L Normal 10 - 20 [facility] Comment on above: Performed By: #### B MP #### [facility] [address] [place] [address] Calcium [Mass/Vol] 8.9 mg/dL Normal 8.6 - 10.6 [facility] Comment on above: Performed By: #### B MP #### [facility] [address] [place] [address] Chloride [Moles/Vol] 104 mmol/L Normal 98 - 107 [facility] Comment on above: Performed By: #### B MP #### [facility] [address] [place] [address] Creatinine [Mass/Vol] 0.69 mg/dL Normal 0.50 - 1.05 [facility] Comment on above: Performed By: #### B MP #### [facility] [address] [place] [address] GFR- AM. >60 Normal >60 [facility] Comment on above: Result Comment: CALC ULATIONS OF ESTIMATED GFR ARE PERFORMED USING THE MDRD STUDY EQUATION FOR THE IDMS-TRACEABLE CREATININE METHODS. CLIN CHEM 2007;53:766-72 Performed By: #### B MP #### [facility] [address] [place] [address] GFR-NON AM. >60 Normal >60 [facility] Comment on above: Performed By: #### B MP #### [facility] [address] [place] [address] Glucose [Mass/Vol] 85 mg/dL Normal 74 - 99 [facility] Comment on above: Performed By: #### B MP #### [facility] [address] [place] [address] HCO3 (Bld) [Moles/Vol] 28 mmol/L Normal 21 - 32 [facility] Comment on above: Performed By: #### B MP #### [facility] [address] [place] [address] Potassium [Moles/Vol] 4.2 mmol/L Normal 3.5 - 5.3 [facility] Comment on above: Performed By: #### B MP #### [facility] [address] [place] [address] Sodium [Moles/Vol] 140 mmol/L Normal 136 - 145 [facility] Comment on above: Performed By: #### B MP #### [facility] [address] [place] [address] Urea nitrogen [Mass/Vol] 7 mg/dL Normal 6 - 23 [facility] Comment on above: Performed By: #### B MP #### [facility] [address] [place] [address] CBCon 07-12-2021 Erythrocyte distribution width (RBC) [Ratio] 13.9 % Normal 11.5 - 14.5 [facility] Comment on above: Performed By: #### C BC #### [facility] [address] [place] [address] Hematocrit (Bld) [Volume fraction] 33.8 % Low 36.0 - 46.0 [facility] Comment on above: Performed By: #### C BC #### [facility] [address] [place] [address] Hemoglobin (Bld) [Mass/Vol] 11.2 g/dL Low 12.0 - 16.0 [facility] Comment on above: Performed By: #### C BC #### [facility] [address] [place] [address] MCHC (RBC) [Mass/Vol] 33.1 g/dL Normal 32.0 - 36.0 [facility] Comment on above: Performed By: #### C BC #### [facility] [address] [place] [address] MCV (RBC) [Entitic vol] 108 fL High 80 - 100 [facility] Comment on above: Performed By: #### C BC #### [facility] [address] [place] [address] NUCLEATED RBC 0.0 /100 WBC Normal 0.0-0.0 [facility] Comment on above: Performed By: #### C BC #### [facility] [address] [place] [address] Platelets (Bld) [#/Vol] 438 10*3/uL Normal 150 - 450 [facility] Comment on above: Performed By: #### C BC #### [facility] [address] [place] [address] RBC 3.13 x10E12/L Low 4.00 - 5.20 [facility] Comment on above: Performed By: #### C BC #### [facility] [address] [place] [address] WBC (Bld) [#/Vol] 8.7 10*3/uL Normal 4.4 - 11.3 [facility] Comment on above: Performed By: #### C BC #### [facility] [address] [place] [address] Discharge Planning Heel4fg 0 07-12-2021 Discharge Planning Note2 Discharge Planning: Discharge Barriersnone Planned Dispositionhome Discharge Destinationhome [facility] P[facility]/Next Provider Follow Up Scheduledyes [place] of Choice Explainedno Anticipated Discharge [id number] Discharge Planning 07/12/2021 @ 1540 Transitional Care Coordination Progress Note: Patient discussed during interdisciplinary rounds. Team members present: Attending and TCC Plan per Medical/Surgical team: UTI, cultures pending. PMH Stg 3 invasive SCCA. PCNT drain in place Status: observation Payor source: [facility] Plan Discharge disposition: Home with SO. Home care with [facility] just ended on 07/11. Pt declines the need for Home Care nurse. Pt independent with PCNT care. Potential Barriers: none ADOD: 07/13 Admission assessment completed at the bedside with the patient. See assessment tab for details. Pt's significant other will transport pt home when medically ready. Pari Abbott RNCC [phone] Transitional Tractor Operator Laser Leveling Note: 07/14/2021@ 14:47. Patient is medically ready for discharge. No home care is required. Coleen Villa RN [facility] [phone] 07/14/21 7585-discussed d/c instructions with pt who verbalized understanding prior to d/c. de-accessed right chest mediport pt tolerated well. pt left unit prior to being given printed script for atb therapy. attending notified. Yolanda mckinley, internet cafe manager: Discharge Planning Assessment [id number] Discharge Planning Assessment Completed byPari Abbott RNC Primary Contact Name and NumberMATT [phone], SO Prior Level of Functioningindependent with ADLs and SO helps with iADLs Independent with PCNT drain and site care Lives Withsignificant other Living Arrangementsmobile home; 3 steps to enter mobile home. Tub shower with seat Stated Reason for AdmissionABD PAIN(1) Arrived Fromemergency department (1) PCPsingh [facility]/ [facility]/ Need Assist with Ambulationno falls, no AD DME Supplier Name/Numbernone Home Care Agency/Support Servicesnone Diabetic/Supplies Needednone Hemodialysis Schedulenone Resource/Environmental Concernsnone(1) [facility] Services Anticipated at Transitionnone(1) Readmission Within the [...] 14-Jul-2021 14:48) Authored: Discharge Planning Yolanda Ventura (JAMAL) (Signed 14-Jul-2021 16:55) Authored: Discharge Planning Pari Abbott (CLIN COOR) (Signed 12-Jul-2021 15:41) Authored: Discharge Planning, Assessment Last Updated: 14-Jul-2021 16:55 by Yolanda Ventura (RN) References: 1. Data Referenced From Patient Profile - Adult v2 12-Jul-2021 00:17 Normal [facility] HCG,URINEon 07-12-2021 Beta HCG ( test) Ql (U) Negative Normal Negative [facility] Comment on above: Performed By: #### U [facility] #### [facility] [address] [place] [address] Nutrition Therapy-Assessment on 07-12-2021 Nutrition Therapy-Assessment Assessment Subjective/Objective: Note Type: Assessment Note Authored by: Registered Dietitian Rabbit Dresser Pager Number: [phone] Nutrition Note: The patient is a 30 [...] Mouth: negative Nails: negative Estimated Needs: kcals/day: 2457-4536 Predictive Equation Used: kcals/kg; 30-35 gms protein/day: [...] suggestions of meals/foods to try. Discussed utilizing [employer] for resources in her area. Education Provided to: patient Understanding of Diet: good Anticipated Compliance: fair Follow up: refer pt to outpatient nutrition therapy for follow up (likely closer to home) Nutrition Goals: Goals: Nutrition Therapy: consume prescribed supplement, electrolytes within normal limits NUTRITION R (more content not included)... Normal [facility] Order Reconciliationon 07-12 Order Reconciliation [...] tab(s) orally 3 times a day, As [id number]-Jul-2021 PM LORazepam Tablet (ATIVAN)DOSE = 1 mg Oral Every 8 Hours, PRN AnxietyLORazepam 1 mg oral tablet continued as the inpatient order LORazepam Percocet 5/325 oral tablet orally every 4-6 hours, As [id number]-Jul-2021 Reviewed and Held Zofran 4 mg oral tablet orally every 4 hours, As [id number]-Tur- 2021 PM Reviewed and Held Documentation of [...] 6 Hours, PRN Nausea and/or Vomiting Normal [facility] Patient Profile - Adult v2on 07-12-2021 Patient Profile - Adult v2 Profile: Initial Info: How to be Addressedrachael (1) Spoken Language PreferredEnglish (1) Source of Informationpatient Stated Reason for AdmissionABD PAIN Primary Contact Name and NumberMATT [phone] Wants Family/Rep Notified of Admissionyes, primary contact Notify PCPnotify PCP Informed of Patient Visiting Rightsyes Arrived Fromemergency department Patient Belongingsremains with patient Patient Belongings Remaining with Patientvision aids; cell phone/electronics; purse/wallet; clothing Medications Brought to Hospitalyes Medication Dispositionlocked in unit medication cabinet General Health: Blood Avoidance/Restrictionsno ne(1) Weight in kg48.6 kilogram(s) Weight in lln604.1 pound(s) Weight Methodactual (measured) Scale Typestanding Height [...] From Triage - ED 11-Jul-2021 13:01 Normal [facility] BLOOD CULTURE, BACTERIALon 0 07-11-2021 BLOOD CULTURE, BACTERIAL PATIENT: LALY NAVAS LOCATION: [place] [address] BILL#: [id number] : 86 AGE: SEX: F ORDERED BY: LATANYA CUELLAR SOURCE: Blood COLLECTED: 07/11/21 14:43 ANTIBIOTICS AT BINA.: RECEIVED : 07/11/21 15:49 SITE: PERIPHERAL R E S U L T S BLOOD CULTURE, BACTERIAL FINAL 07/16/21 17:42 No Growth at 1 days No Growth at 2 days No Growth at 3 days No Growth at 4 days NO GROWTH - FINAL REPORT Normal [facility] Comment on above: Performed By: #### B LDC #### [facility] [address] [place] [address] BLOOD CULTURE, BACTERIAL PATIENT: LALY NAVAS LOCATION: [place] [address] BILL#: [id number] : 86 AGE: SEX: F ORDERED BY: LATANYA CUELLAR SOURCE: Blood COLLECTED: 07/11/21 14:42 ANTIBIOTICS AT BINA.: RECEIVED : 07/11/21 15:47 SITE: PERIPHERAL R E S U L T S BLOOD CULTURE, BACTERIAL FINAL 07/16/21 17:42 No Growth at 1 days No Growth at 2 days No Growth at 3 days No Growth at 4 days NO GROWTH - FINAL REPORT Normal [facility] Comment on above: Performed By: #### B LDC #### [facility] [address] [place] [id number] CBC AND DIFFERENTIALon 07-11 % AUTOMATED IMMATURE GRAN 0.6 % Normal 0.0 - 0.9 [facility] Comment on above: Result Comment: Zoila ture Granulocyte Count (IG) includes promyelocytes, myelocytes and metamyelocytes but does not include bands. Percent differential counts (%) should be interpreted in the context of the absolute cell counts (cells/L). Performed By: #### U AMIC #### [facility] [address] [place] [address] Basophils (Bld) [#/Vol] 0.09 10*3/uL Normal 0.00 - 0.1 0 [facility] Comment on above: Performed By: #### U AMIC #### [facility] [address] [place] [address] Basophils/100 WBC (Bld) 1.0 % Normal 0.0 - 2.0 [facility] Comment on above: Performed By: #### U AMIC #### [facility] [address] [place] [address] Eosinophils (Bld) [#/Vol] 0.56 10*3/uL Normal 0.00 - 0.70 [facility] Comment on above: Performed By: #### U AMIC #### [facility] [address] [place] [address] Eosinophils/100 WBC (Bld) 6.2 % Normal 0.0 - 6.0 [facility] Comment on above: Performed By: #### U AMIC #### [facility] [address] [place] [address] Erythrocyte distribution width (RBC) [Ratio] 14.1 % Normal 11.5 - 14.5 [facility] Comment on above: Performed By: #### U AMIC #### [facility] [address] [place] [address] Hematocrit (Bld) [Volume fraction] 35.9 % Low 36.0 - 46.0 [facility] Comment on above: Performed By: #### U AMIC #### [facility] [address] [place] [address] Hemoglobin (Bld) [Mass/Vol] 12.3 g/dL Normal 12.0 - 16.0 [facility] Comment on above: Performed By: #### U AMIC #### [facility] [address] [place] [address] Lymphocytes (Bld) [#/Vol] 2.39 10*3/uL Normal 1.20 - 4.80 [facility] Comment on above: Performed By: #### U AMIC #### [facility] [address] [place] [address] Lymphocytes/100 WBC (Bld) 26.5 % Normal 13.0 - 44.0 [facility] Comment on above: Performed By: #### U AMIC #### [facility] [address] [place] [address] MCHC (RBC) [Mass/Vol] 34.3 g/dL Normal 32.0 - 36.0 [facility] Comment on above: Performed By: #### U AMIC #### [facility] [address] [place] [address] MCV (RBC) [Entitic vol] 106 fL High 80 - 100 [facility] Comment on above: Performed By: #### U AMIC #### [facility] [address] [place] [address] Monocytes (Bld) [#/Vol] 0.79 10*3/uL Normal 0.10 - 1.0 0 [facility] Comment on above: Performed By: #### U AMIC #### [facility] [address] [place] [address] Monocytes/100 WBC (Bld) 8.8 % Normal 2.0 - 10.0 [facility] Comment on above: Performed By: #### U AMIC #### [facility] [address] [place] [address] Neutrophils (Bld) [#/Vol] 5.13 10*3/uL Normal 1.20 - 7.70 [facility] Comment on above: Performed By: #### U AMIC #### [facility] [address] [place] [address] Neutrophils/100 WBC (Bld) 56.9 % Normal 40.0 - 80.0 [facility] Comment on above: Performed By: #### U AMIC #### [facility] [address] [place] [address] NUCLEATED RBC 0.0 /100 WBC Normal 0.0-0.0 [facility] Comment on above: Performed By: #### U AMIC #### [facility] [address] [place] [address] Platelets (Bld) [#/Vol] 477 10*3/uL High 150 - 450 [facility] Comment on above: Performed By: #### U AMIC #### [facility] [address] [place] [address] RBC 3.38 x10E12/L Low 4.00 - 5.20 [facility] Comment on above: Performed By: #### U AMIC #### [facility] [address] [place] [address] WBC (Bld) [#/Vol] 9.0 10*3/uL Normal 4.4 - 11.3 [facility] Comment on above: Performed By: #### U AMIC #### [facility] [address] [place] [address] COMPREHENSIVE PANELon 2020 Albumin [Mass/Vol] 4.0 g/dL Normal 3.4 - 5.0 [facility] Comment on above: Performed By: #### B MP #### [facility] [address] [place] [address] ALP [Catalytic activity/Vol] 65 U/L Normal 33 - 110 [facility] Comment on above: Performed By: #### B MP #### [facility] [address] [place] [address] ALT [Catalytic activity/Vol] 4 U/L Low 7 - 45 [facility] Comment on above: Result Comment: Sarah ents treated with Sulfasalazine may generate falsely decreased results for ALT. Performed By: #### B MP #### [facility] [address] [place] [address] Anion gap [Moles/Vol] 15 mmol/L Normal 10 - 20 [facility] Comment on above: Performed By: #### B MP #### [facility] [address] [place] [address] AST [Catalytic activity/Vol] 11 U/L Normal 9 - 39 [facility] Comment on above: Performed By: #### B MP #### [facility] [address] [place] [address] Bilirubin [Mass/Vol] 0.4 mg/dL Normal 0.0 - 1.2 [facility] Comment on above: Performed By: #### B MP #### [facility] [address] [place] [address] Calcium [Mass/Vol] 9.1 mg/dL Normal 8.6 - 10.6 [facility] Comment on above: Performed By: #### B MP #### [facility] [address] [place] [address] Chloride [Moles/Vol] 104 mmol/L Normal 98 - 107 [facility] Comment on above: Performed By: #### B MP #### [facility] [address] [place] [address] Creatinine [Mass/Vol] 0.69 mg/dL Normal 0.50 - 1.05 [facility] Comment on above: Performed By: #### B MP #### [facility] [address] [place] [address] GFR- AM. >60 Normal >60 [facility] Comment on above: Result Comment: CALC ULATIONS OF ESTIMATED GFR ARE PERFORMED USING THE MDRD STUDY EQUATION FOR THE IDMS-TRACEABLE CREATININE METHODS. CLIN CHEM 2007;53:766-72 Performed By: #### B MP #### [facility] [address] [place] [address] GFR-NON AM. >60 Normal >60 [facility] Comment on above: Performed By: #### B MP #### [facility] [address] [place] [address] Glucose [Mass/Vol] 79 mg/dL Normal 74 - 99 [facility] Comment on above: Performed By: #### B MP #### [facility] [address] [place] [address] HCO3 (Bld) [Moles/Vol] 23 mmol/L Normal 21 - 32 [facility] Comment on above: Performed By: #### B MP #### [facility] [address] [place] [address] Potassium [Moles/Vol] 3.8 mmol/L Normal 3.5 - 5.3 [facility] Comment on above: Performed By: #### B MP #### [facility] [address] [place] [address] Protein [Mass/Vol] 6.4 g/dL Normal 6.4 - 8.2 [facility] Comment on above: Performed By: #### B MP #### [facility] [address] [place] [address] Sodium [Moles/Vol] 138 mmol/L Normal 136 - 145 [facility] Comment on above: Performed By: #### B MP #### [facility] [address] [place] [address] Urea nitrogen [Mass/Vol] 8 mg/dL Normal 6 - 23 [facility] Comment on above: Performed By: #### B MP #### [facility] [address] [place] [address] COOX PANEL,VENOUSon 07-11-20 21 CO HGB 5.0 % Abnormal [facility] Comment on above: Result Comment: REF VALUES NONSMOKERS 0.5-1.5% SMOKERS 0.5-10.0% Performed By: #### C OOXV ####[id number] [place] [address] MET HGB 0.6 % Normal 0.0 - 1.5 [facility] Comment on above: Performed By: #### C OOXV ####[id number] [place] [address] CORONAVIRUS 2019 BY PCRon SARS-CoV-2 (COVID-19) RNA SUZI+probe Ql (Unsp spec) Not detected Normal Not Detected [facility] Comment on above: Result Comment: . This test has received FDA Emergency Use Authorization (EUA) and has been verified by [facility] ([facility]). This test is only authorized for the duration of time that circumstances exist to justify the authorization of the emergency use of in vitro diagnostic tests for the detection of SARS-CoV-2 virus and/or diagnosis of COVID-19 infection under section 564(b)(1) of the Act, 21 U.S.C. 360bbb-3(b)(1), unless the authorization is terminated or revoked sooner. [facility] is certified under CLIA-88 as qualified to perform high complexity testing. Testing is performed in the [facility] [place] [address] [place] [address]. SARS-CoV-2/Flu/RSV Multiplex Test: Fact sheet for providers: https://www.fda.gov/media/698629/download Fact sheet for patients: https://www.fda.gov/media/578068/download Performed By: #### U AMIC #### [facility] [id number] [place] [address]. [place] [address] Lab Specimen Source Nasal, Nasopharyngeal Normal [facility] Comment on above: Performed By: #### U AMIC #### [facility] [id number] [place] [address]. [place] [address] DATE OF SYMPTOM ONSET [YYYYMMDD]? [id number] Normal [facility] Comment on above: Performed By: #### U AMIC #### [address] [place] [address] Consult-Urologyon 07-11-2021 Consult-Urology Service: Service: Urology Consult: [...] Known Allergies: Objective: Objective Information: T PRBPSpO2 Value36.401905857/9799% Date/Time07/11 13: 13: 13: 13: 13:01 Range(36.8C [...] afebrile, normotensi (more content not included)... Normal [facility] Covid 19 Resultson 1 SARS-CoV-2 [...] You may also be contacted by the [facility] to see if any of your [...] or Naproxen (Aleve) can also be used. Yidn-eti-czjcvjq cough and cold medicines can be used according to the instructions on the package. Some [id number] medicines also contain acetaminophen. Make sure you [...] water are not available, use alcohol-based hand fruit coordinator. Avoid touching your eyes, nose, and mouth [...] 24 liu (more content not included)... Normal [facility] Provider Note - ED v3on 09-0 Provider [...] (breaths/min): 18 07-11-2021 13:01 SpO2 (%): 99 09-08-2021 13:01 BP Systolic (mm Hg): 134 07-11-2021 [...] SIGNIFICANT EVENTS: (more content not included)... Normal [facility] Risk Screen - Adult Emergenc [...] material; verbal instruction Cultural Considerationsnone Developmental Considerationsnone Rastafari Considerationsnone Learning Assessment (Other Learner): Learning Assessment (Other Learner): Other learner availableno Pressure Injury/TB/Substance: Pressure Injury: Pressure Injury Present on Admissionno Do you have a coughno Smoking Statusnever smoker Alcohol Usedenies Resources OfferedThrive consult ( for ED's that have services) Admission Risk Screen: Significant IndicatorsComplete CAGE: CAGE: Is this an injured patient at a Trauma Center ([facility]/[place] /[place]): yes C: Have you ever felt you needed to Cut down on your drinking: no A: Have people Annoyed you by criticizing your drinking: no G: Have you ever felt Guilty about drinking: no E: Have you ever felt you needed a drink first thing in the morning (Eye-cotton opener) to steady your nerves or to get rid of hangover: no Electronic Signatures: Elkin Almanza (JAMAL) (Signed 11-Jul-2021 20:40) Authored: Preferred Language, Advanced Directives, Family Violence Adult, Learning Assessment (Patient), Learning Assessment (Other Learner), Pressure Injury/TB/Substance, Pressure Injury, CAGE Last Updated: 11-Jul-2021 20:40 by Elkin Almanza) Normal [facility] Triage - EDon 07-11-2021 Triage [...] BMI (kg/m2): 17.088 Calculated BSA (m2) 1.49 [place] Coma Scale: Best Eye Response: (E4) spontaneous Best Motor Response: (M6) obeys commands Best Verbal Response: (V5) oriented [place] Score: 15 Omega Assessment Qualifiers: patient not [...] 11-Jul-2021 13:06 by David Riggins (RN) Normal [facility] UA MICROSCOPICon 07-11-2021 BACTERIA 1+ /HPF Abnormal [facility] Comment on above: Performed By: #### U AMIC #### [facility] [address] [place] [address] Mucus Ql (Urine sed) 4+ /LPF Normal [facility] Comment on above: Performed By: #### U AMIC #### [facility] [address] [place] [address] RBC 9 /HPF Abnormal 0-5 [facility] Comment on above: Performed By: #### U AMIC #### [facility] [address] [place] [address] WBC (U) [#/Vol] /uL Abnormal 0-5 [facility] Comment on above: Performed By: #### U AMIC #### [facility] [address] [place] [address] WBC CLUMPS OCC Normal [facility] Comment on above: Performed By: #### U AMIC #### [facility] [address] [place] [address] Lab Specimen Source Normal [facility] Comment on above: Performed By: #### U AMIC #### [facility] [address] [place] [address] Performed By: #### B MP #### [facility] [address] [place] [address] URINALYSIS WITH CULTURE IF I NDICATEDon 07-11-2021 Appearance (U) HAZY Normal CLEAR [facility] Comment on above: Performed By: #### B MP #### [facility] [address] [place] [address] Bilirubin Ql (U) Negative Normal NEGATIVE [facility] Comment on above: Performed By: #### B MP #### [facility] [address] [place] [address] Color (U) YELLOW Normal STRAW,YELLO W [facility] Comment on above: Performed By: #### B MP #### [facility] [address] [place] [address] Glucose Ql (U) Negative Normal NEGATIVE [facility] Comment on above: Performed By: #### B MP #### [facility] [address] [place] [address] Hemoglobin Ql (U) SMALL (1+) Abnormal NEGATIVE [facility] Comment on above: Performed By: #### B MP #### [facility] [address] [place] [address] Ketones Ql (U) Negative Normal NEGATIVE [facility] Comment on above: Performed By: #### B MP #### [facility] [address] [place] [address] Leukocyte esterase Test strip Ql (U) LARGE (3+) Abnormal NEGATIVE [facility] Comment on above: Performed By: #### B MP #### [facility] [address] [place] [address] Nitrite Ql (U) Positive Abnormal NEGATIVE [facility] Comment on above: Performed By: #### B MP #### [facility] [address] [place] [address] pH (U) 6.0 [pH] Normal 5.0 - 8.0 [facility] Comment on above: Performed By: #### B MP #### [facility] [address] [place] [address] Protein Ql (U) 100 (2+) Abnormal NEGATIVE [facility] Comment on above: Performed By: #### B MP #### [facility] [address] [place] [address] Specific gravity (U) [Rel density] 1.010 Normal 1.005 - 1.035 [facility] Comment on above: Performed By: #### B MP #### [facility] [address] [place] [address] Urobilinogen (U) [Mass/Vol] mg/dL Normal 0.0 - 1.9 [facility] Comment on above: Performed By: #### B MP #### [facility] [address] [place] [address] URINE CULTURE,BACTERIALon URINE CULTURE,BACTERIAL PATIENT: LALY NAVAS LOCATION: [address]#: [id number] : 86 AGE: SEX: F ORDERED BY: LATANYA CUELLAR SOURCE: URINE COLLECTED: 07/11/21 15:06 ANTIBIOTICS AT BINA.: RECEIVED : 07/11/21 16:38 SITE: Tino Boyce T S URINE CULTURE,BACTERIAL FINAL 07/13/21 13:34 [...] DOSE DEPENDENT NS=NONSUSCEPTIBLE X=REPORTED IN ERROR Normal [facility] Comment on above: Performed By: #### U AMIC #### [facility] [address] [place] [id number] VENOUS FULL PANELon 07-11-20 21 Anion gap [Moles/Vol] 8 mmol/L Low 10 - 25 [facility] Comment on above: Performed By: #### V FPA3 ####[id number] [place] [address] BASE EXCESS-BLOOD 0.3 mmol/L Normal -2.0 - 3.0 [facility] Comment on above: Performed By: #### V FPA3 ####[id number] [place] [address] BICARB, CALCULATED 24.6 mmol/L Normal 22.0 - 26.0 [facility] Comment on above: Performed By: #### V FPA3 ####[id number] [id number] CALCIUM,IONIZED 1.21 mmol/L Normal 1.10 - 1.33 [facility] Comment on above: Performed By: #### V FPA3 ####[id number] [place] [address] Chloride [Moles/Vol] 106 mmol/L Normal 98 - 107 [facility] Comment on above: Performed By: #### V FPA3 ####[id number] [place] [address] Glucose [Mass/Vol] 84 mg/dL Normal 74 - 99 [facility] Comment on above: Performed By: #### V FPA3 ####[id number] [place] [address] Hematocrit (Bld) [Volume fraction] 38.0 % Normal 36.0 - 46.0 [facility] Comment on above: Performed By: #### V FPA3 ####[id number] [place] [address] HGB,CALCULATED 12.9 g/dL Normal 12.0 - 16.0 [facility] Comment on above: Performed By: #### V FPA3 ####[id number] [place] [address] Lactate [Moles/Vol] 0.8 mmol/L Normal 0.4 - 2.0 [facility] Comment on above: Performed By: #### V FPA3 ####[id number] [place] [address] Oxygen (Bld) [Partial pressure] 37 mm[Hg] Normal 35 - 45 [facility] Comment on above: Performed By: #### V FPA3 ####[id number] [place] [address] PATIENT TEMPERATURE 37.0 degrees C Normal [facility] Comment on above: Result Comment: NOTE : PATIENT RESULTS ARE NOT CORRECTED FOR TEMPERATURE. Performed By: #### V FPA3 ####[id number] [place] [address] PCO2 38 mmHg Low 41 - 51 [facility] Comment on above: Performed By: #### V FPA3 ####[id number] [place] [address] pH (Bld) 7.42 [pH] Normal 7.33 - 7.43 [facility] Comment on above: Performed By: #### V FPA3 ####[id number] [place] [address] Potassium [Moles/Vol] 3.8 mmol/L Normal 3.5 - 5.3 [facility] Comment on above: Performed By: #### V FPA3 ####[id number] [place] [address] SO2 76 % High 45 - 75 [facility] Comment on above: Performed By: #### V FPA3 ####[id number] [place] [address] Sodium [Moles/Vol] 135 mmol/L Low 136 - 145 [facility] Comment on above: Performed By: #### V FPA3 ####[id number], [place] CONVERT NEPHROSTOMY CATH-NEP HROURETERAL CATH,PERC INCLUDE NEPHROSTO/URETEROGRAM [...] or ureteral stent. COMPARISON: None. ACCESSION NUMBER(S): [id number]; [id number]; [id number] ORDERING CLINICIAN: POLO PLUMMER TECHNIQUE: INTERVENTIONALIST(S): Attending: [...] Maximum sterile barrier technique was implemented. Initial scout professional sports fluoroscopic image demonstrates an intact percutaneous nephrostomy tube in satisfactory position. ANTEGRADE PYELOGRAM FINDINGS: Dilute contrast was then injected through the existing percutaneous nephrostomy tube. This demonstrated Initial scout professional sports fluoroscopic spot image demonstrates an intact existing [...] removed over the wire. Subsequently, a 5 Mongolian Kumpe catheter was advanced over the wire and the wire catheter combination were advanced into the distal ureter attempt was made to advanced wire past the stricture, which was unsuccessful. The Kumpe catheter was removed and a 9 Mongolian x 30 cm peel-away sheath was advanced [...] and a 4 mm x 4 mm [place] balloon was advanced over the wire. And balloon dilatation of the distal left ureter was performed under fluoroscopy. An appropriate measurement was taken and a new 8.5 Fr x 24 cm nephroureteral stent/catheter was subsequently inserted over the guidewire. The guidewire and nephrostomy inner stylet were removed. The self-formin (more content not included)... Normal [facility] DIL/NEPH/UREon 07-02-2021 DIL/NEPH/URE Patient Name: ANTONELLALALY STUDY: CONVERT NEPHROSTOMY CATH-NEPHROURETERAL CATH,PERC INCLUDE NEPHROSTO/URETEROGRAM [...] or ureteral stent. COMPARISON: None. ACCESSION NUMBER(S): [id number]; [id number]; [id number] ORDERING CLINICIAN: POLO PLUMMER TECHNIQUE: INTERVENTIONALIST(S): Attending: [...] Maximum sterile barrier technique was implemented. Initial scout professional sports fluoroscopic image demonstrates an intact percutaneous nephrostomy tube in satisfactory position. ANTEGRADE PYELOGRAM FINDINGS: Dilute contrast was then injected through the existing percutaneous nephrostomy tube. This demonstrated Initial scout professional sports fluoroscopic spot image demonstrates an intact existing [...] removed over the wire. Subsequently, a 5 Mongolian Kumpe catheter was advanced over the wire and the wire catheter combination were advanced into the distal ureter attempt was made to advanced wire past the stricture, which was unsuccessful. The Kumpe catheter was removed and a 9 Mongolian x 30 cm peel-away sheath was advanced [...] and a 4 mm x 4 mm [place] balloon was advanced over the wire. And balloon dilatation of the distal left ureter was performed under fluoroscopy. An appropriate measurement was taken and a new 8.5 Fr x 24 cm nephroureteral stent/catheter was subsequently inserted over the guidewire. The guidewire and nephrostomy inner stylet were removed. The self-formin (more content not included)... Normal [facility] DIL/URETERon 07-02-2021 DIL/URETER Patient Name: ANTONELLA LALY STUDY: CONVERT NEPHROSTOMY CATH-NEPHROURETERAL CATH,PERC INCLUDE NEPHROSTO/URETEROGRAM [...] or ureteral stent. COMPARISON: None. ACCESSION NUMBER(S): [id number]; [id number]; [id number] ORDERING CLINICIAN: POLO PLUMMER TECHNIQUE: INTERVENTIONALIST(S): Attending: [...] Maximum sterile barrier technique was implemented. Initial scout professional sports fluoroscopic image demonstrates an intact percutaneous nephrostomy tube in satisfactory position. ANTEGRADE PYELOGRAM FINDINGS: Dilute contrast was then injected through the existing percutaneous nephrostomy tube. This demonstrated Initial scout professional sports fluoroscopic spot image demonstrates an intact existing [...] removed over the wire. Subsequently, a 5 Mongolian Kumpe catheter was advanced over the wire and the wire catheter combination were advanced into the distal ureter attempt was made to advanced wire past the stricture, which was unsuccessful. The Kumpe catheter was removed and a 9 Mongolian x 30 cm peel-away sheath was advanced [...] and a 4 mm x 4 mm [place] balloon was advanced over the wire. And balloon dilatation of the distal left ureter was performed under fluoroscopy. An appropriate measurement was taken and a new 8.5 Fr x 24 cm nephroureteral stent/catheter was subsequently inserted over the guidewire. The guidewire and nephrostomy inner stylet were removed. The self-formin (more content not included)... Normal [facility] Office Visit (Urology)on Follow-up visit [...] Chief Complaint left NT History of Present C[age]gine17 year old female diagnosed with cervical cancer [...] UC ORGANISM 1: NO SIGNIFICANT GROWTH Normal [facility] Comment on above: Performed By: #### M 120.0100 #### - LABORATORY [address] [place] [address] CA 125on 04-26-2020 CA 125 21 U/mL Normal <39 [facility] Reference [facility] Comment on above: Performed By: #### C A125 #### [facility] Routine Lab [address] [place], [place] [address] GC/Chlamydia Amp, Uron 04-06 Chlamydia Amplif, Ur Normal [facility] Reference Lab Comment on above: Result Comment: Nega tive for For screening asymptomatic women, a vaginal swab specimen (APTIMA vaginal swab 021167) is optimal. Urine specimens have reduced sensitivity for Chlamydia trachomatis or Neisseria gonorrhoeae infection in female patients without symptoms. This test was developed and its performance characteristics determined by [facility] [place] ([facility]). It has not been cleared or approved by the FDA. [facility] is regulated under CLIA as qualified to perform high complexity testing. This test is used for clinical purposes. It should not be regarded as investigational or for research. Chlamydia For screening asymptomatic women, a vaginal swab specimen (APTIMA vaginal swab 235673) is optimal. Urine specimens have reduced sensitivity for Chlamydia trachomatis or Neisseria gonorrhoeae infection in female patients without symptoms. This test was developed and its performance characteristics determined by [facility] [place] ([facility]). It has not been cleared or approved by the FDA. [facility] is regulated under CLIA as qualified to perform high complexity testing. This test is used for clinical purposes. It should not be regarded as investigational or for research. trachomatis by For screening asymptomatic women, a vaginal swab specimen (APTIMA vaginal swab 244480) is optimal. Urine specimens have reduced sensitivity for Chlamydia trachomatis or Neisseria gonorrhoeae infection in female patients without symptoms. This test was developed and its performance characteristics determined by [facility] [place] ([facility]). It has not been cleared or approved by the FDA. [facility] is regulated under CLIA as qualified to perform high complexity testing. This test is used for clinical purposes. It should not be regarded as investigational or for research. amplification. For screening asymptomatic women, a vaginal swab specimen (APTIMA vaginal swab 709520) is optimal. Urine specimens have reduced sensitivity for Chlamydia trachomatis or Neisseria gonorrhoeae infection in female patients without symptoms. This test was developed and its performance characteristics determined by [facility] [place] ([facility]). It has not been cleared or approved by the FDA. [facility] is regulated under CLIA as qualified to perform high complexity testing. This test is used for clinical purposes. It should not be regarded as investigational or for research. Performed By: #### U GCCT #### [facility] Routine Lab [address] [place] [address] GC Amplification, Ur NGNEG Normal [facility] Comment on above: Performed By: #### U GCCT #### [facility] Routine Lab [address] [place] [id number] GC/Chlamydia Amp, Uron 04-03 Chlamydia Amplif, Ur Normal [facility] Reference [facility] Comment on above: Result Comment: Nega tive for For screening asymptomatic women, a vaginal swab specimen (APTIMA vaginal swab 113275) is optimal. Urine specimens have reduced sensitivity for Chlamydia trachomatis or Neisseria gonorrhoeae infection in female patients without symptoms. This test was developed and its performance characteristics determined by [facility] [place] ([facility]). It has not been cleared or approved by the FDA. [facility] is regulated under CLIA as qualified to perform high complexity testing. This test is used for clinical purposes. It should not be regarded as investigational or for research. Chlamydia For screening asymptomatic women, a vaginal swab specimen (APTIMA vaginal swab 381442) is optimal. Urine specimens have reduced sensitivity for Chlamydia trachomatis or Neisseria gonorrhoeae infection in female patients without symptoms. This test was developed and its performance characteristics determined by [facility] [place] ([facility]). It has not been cleared or approved by the FDA. [facility] is regulated under CLIA as qualified to perform high complexity testing. This test is used for clinical purposes. It should not be regarded as investigational or for research. trachomatis by For screening asymptomatic women, a vaginal swab specimen (APTIMA vaginal swab 064608) is optimal. Urine specimens have reduced sensitivity for Chlamydia trachomatis or Neisseria gonorrhoeae infection in female patients without symptoms. This test was developed and its performance characteristics determined by [facility] ( [facility]). It has not been cleared or approved by the FDA. [facility] is regulated under CLIA as qualified to perform high complexity testing. This test is used for clinical purposes. It should not be regarded as investigational or for research. amplification. For screening asymptomatic women, a vaginal swab specimen (APTIMA vaginal swab 507455) is optimal. Urine specimens have reduced sensitivity for Chlamydia trachomatis or Neisseria gonorrhoeae infection in female patients without symptoms. This test was developed and its performance characteristics determined by [facility] [place] ([facility]). It has not been cleared or approved by the FDA. [facility] is regulated under CLIA as qualified to perform high complexity testing. This test is used for clinical purposes. It should not be regarded as investigational or for research. Performed By: #### U GCCT #### [facility] Routine Lab [address] [place], [place] [address] GC Amplification, Ur NGNEG Normal [facility] Reference Lab Comment on above: Performed By: #### U GCCT #### [facility] Routine Lab [address] [place], [place] [address] Vital Signs Date Time Vital Sign Value Performing Clinician Facility 06-05-2025 02:12-0400 Body temperature 96.9 [degF] Dr. Jatin Garcia MD Work Phone: 7(460)743-428472 [place] [address] 06-05-2025 02:12-0400 Diastolic blood pressure 79 mm[Hg] Dr. Jatin Garcia MD Work Phone: 1(273)036-259272 [place] [address] 06-05-2025 02:12-0400 Heart rate 79 /min Dr. Jatin Garcia MD Work Phone: 8(606)992-175672 [place] [address] 06-05-2025 02:12-0400 Respiratory rate 18 /min Dr. Jatin Garcia MD Work Phone: 9(744)168-213172 [place] [address] 06-05-2025 02:12-0400 SaO2% (BldA) [Mass fraction] 99 % Dr. Jatin Garcia MD Work Phone: 0(094)523-487472 [place] [address] 06-05-2025 02:12-0400 Systolic blood pressure 117 mm[Hg] Dr. Jatin Garcia MD Work Phone: 0(950)614-120672 [place] [address] 06-04-2025 23:54-0400 Body height 165.[address] Jatin Garcia MD Work Phone: 7(026)681-677072 [place] [address] 06-04-2025 23:54-0400 Body mass index (BMI) [Ratio] 20.2 kg/m2 Dr. Jatin Garcia MD Work Phone: 6(686)974-916572 [place] [address] 06-04-2025 23:54-0400 Body weight 55.[address] Jatin Garcia MD Work Phone: 7(251)474-658390 [place] [address] 06-04-2025 04:00-0400 Body temperature 98 [degF] Dr. Jatin Garcia MD Work Phone: 2(853)736-228290 [place] [address] 06-04-2025 04:00-0400 Diastolic blood pressure 87 mm[Hg] Dr. Jatin Garcia MD Work Phone: 3(161)079-703990 [place] [address] 06-04-2025 04:00-0400 Heart rate 65 /min Dr. Jatin Garcia MD Work Phone: 7(662)156-351090 [place] [address] 06-04-2025 04:00-0400 Respiratory rate 18 /min Dr. Jatin Garcia MD Work Phone: 6(007)972-566890 [place] [address] 06-04-2025 04:00-0400 SaO2% (BldA) [Mass fraction] 99 % Dr. Jatin Garcia MD Work Phone: 7(258)880-130090 [place] [address] 06-04-2025 04:00-0400 Systolic blood pressure 137 mm[Hg] Dr. Jatin Garcia MD Work Phone: 4(700)419-671090 [place] [address] 06-03-2025 23:28-0400 Body height 165.[address] Jatin Garcia MD Work Phone: 5(777)126-240590 [place] [address] 06-03-2025 23:28-0400 Body mass index (BMI) [Ratio] 18.1 kg/m2 Dr. Jatin Garcia MD Work Phone: 0(869)900-506590 [place] [address] 06-03-2025 23:28-0400 Body weight 49.[address] Jatin Garcia MD Work Phone: 7(855)500-116990 [place] [address] 06-02-2025 02:54-0400 Body temperature 98.6 [degF] Dr. Jatin Garcia MD Work Phone: 1(053)466-265490 [place] [address] 06-02-2025 02:54-0400 Diastolic blood pressure 75 mm[Hg] Dr. Jatin Garcia MD Work Phone: 2(757)382-117990 [place] [address] 06-02-2025 02:54-0400 Heart rate 75 /min Dr. Jatin Garcia MD Work Phone: 2(089)194-213390 [place] [address] 06-02-2025 02:54-0400 Respiratory rate 18 /min Dr. Jatin Garcia MD Work Phone: 3(336)926-800190 [place] [address] 06-02-2025 02:54-0400 SaO2% (BldA) [Mass fraction] 98 % Dr. Jatin Garcia MD Work Phone: 8(897)957-288190 [place] [address] 06-02-2025 02:54-0400 Systolic blood pressure 118 mm[Hg] Dr. Jatin Garcia MD Work Phone: 9(210)497-424290 [place] [address] 06-01-2025 23:55-0400 Body height 165.[address] Jatin Garcia MD Work Phone: 8(810)905-268690 [place] [address] 06-01-2025 23:55-0400 Body mass index (BMI) [Ratio] 20 kg/m2 Dr. Jatin Garcia MD Work Phone: 2(791)794-114190 [place] [address] 06-01-2025 23:55-0400 Body weight 54.[address] Jatin Garcia MD Work Phone: 8(778)168-996690 [place] [address] 04-09-2025 02:52-0400 Body temperature 98 [degF] Dr. Jatin Garcia MD Work Phone: 4(802)195-245290 [place] [address] 04-09-2025 02:52-0400 Diastolic blood pressure 72 mm[Hg] Dr. Jatin Garcia MD Work Phone: 7(277)631-506890 [place] [address] 04-09-2025 02:52-0400 Heart rate 81 /min Dr. Jatin Garcia MD Work Phone: 7(209)046-118972 [place] [address] 04-09-2025 02:52-0400 Respiratory rate 14 /min Dr. Jatin Garcia MD Work Phone: 7(488)745-425472 [address] [place] [address] 04-09-2025 02:52-0400 SaO2% (BldA) [Mass fraction] 98 % Dr. Jatin Garcia MD Work Phone: [facility] 04-09-2025 02:52-0400 Systolic blood pressure 118 mm[Hg] Dr. Jatin Garcia MD Work Phone: [facility] 04-09-2025 00:20-0400 Body height 165.[address] Jatin Garcia MD Work Phone: [facility] 04-09-2025 00:20-0400 Body mass index (BMI) [Ratio] 22.4 kg/m2 Dr. Jatin Garcia MD Work Phone: [facility] 04-09-2025 00:20-0400 Body weight [address] Jatin Garcia MD Work Phone: [facility] 03-15-2025 19:03-0400 Diastolic Blood Pressure Non-Invasive 91 mm[Hg] GUCCI ALEXANDRE MD [facility] 03-15-2025 19:03-0400 Heart rate 77 /min GUCCI ALEXANDRE MD [facility] 03-15-2025 19:03-0400 Respiratory rate 18 /min GUCCI ALEXANDRE MD [facility] 03-15-2025 19:03-0400 Systolic Blood Pressure Non-Invasive 158 mm[Hg] GUCCI ALEXANDRE MD [facility] 03-15-2025 16:48-0400 Diastolic Blood Pressure Non-Invasive 87 mm[Hg] GUCCI ALEXANDRE MD [facility] 03-15-2025 16:48-0400 Heart rate 67 /min GUCCI ALEXANDRE MD [facility] 03-15-2025 16:48-0400 Respiratory rate 18 /min GUCCI ALEXANDRE MD [facility] 03-15-2025 16:48-0400 Systolic Blood Pressure Non-Invasive 144 mm[Hg] GUCCI ALEXANDRE MD [address]13-2025 14:52-0400 Body temperature 98.42 [degF] GUCCI ALEXANDRE MD [facility] 03-15-2025 14:52-0400 Body weight 53.1 kg GUCCI ALEXANDRE MD [facility] 03-15-2025 14:52-0400 Diastolic Blood Pressure Non-Invasive 86 mm[Hg] GUCCI ALEXANDRE MD [facility] 03-15-2025 14:52-0400 Heart rate 69 /min GUCCI ALEXANDRE MD [address] [place] [address] 03-15-2025 14:52-0400 Respiratory rate 18 /min GUCCI ALEXANDRE MD [facility] 03-15-2025 14:52-0400 Systolic Blood Pressure Non-Invasive 130 mm[Hg] GUCCI ALEXANDRE MD [facility] 03-09-2025 16:36-0400 Diastolic Blood Pressure Non-Invasive 92 mm[Hg] DELMAR ALEC DO [facility] 03-09-2025 16:36-0400 Heart rate 57 /min DELMAR ALEC DO [facility] 03-09-2025 16:36-0400 Respiratory rate 18 /min DELMAR ALEC DO [facility] 03-09-2025 16:36-0400 Systolic Blood Pressure Non-Invasive 142 mm[Hg] DELMAR ALEC DO [facility] 03-09-2025 14:20-0400 Diastolic Blood Pressure Non-Invasive 86 mm[Hg] DELMAR ALEC DO [facility] 03-09-2025 14:20-0400 Heart rate 80 /min DELMAR ALEC DO [facility] 03-09-2025 14:20-0400 Respiratory rate 18 /min DELMAR ALEC DO [facility] 03-09-2025 14:20-0400 Systolic Blood Pressure Non-Invasive 130 mm[Hg] DELMAR MICHAEL DO [facility] 03-09-2025 12:17-0400 Body temperature 96.98 [degF] DELMAR MICHAEL DO [facility] 03-09-2025 12:17-0400 Body weight 53 kg DELMAR MICHAEL DO [facility] 03-09-2025 12:17-0400 Diastolic Blood Pressure Non-Invasive 95 mm[Hg] DELMAR MICHAEL DO [facility] 03-09-2025 12:17-0400 Heart rate 81 /min DELMAR MICHAEL DO [facility] 03-09-2025 12:17-0400 Respiratory rate 18 /min DELMAR MICHAEL DO [facility] 03-09-2025 12:17-0400 Systolic Blood Pressure Non-Invasive 134 mm[Hg] DELMAR MICHAEL DO [facility] 02-16-2025 10:00-0400 Body temperature 96.98 [degF] PINA PANTOJA [employer] OPERATOR-EMPLOYER RELATIONS REPRESENTATIVE [facility] 02-16-2025 10:00-0400 Heart rate 63 /min PINA PANTOJA [employer] OPERATOR-EMPLOYER RELATIONS REPRESENTATIVE [facility] 02-16-2025 10:00-0400 Respiratory rate 18 /min PINA PANTOJA [employer] OPERATOR-EMPLOYER RELATIONS REPRESENTATIVE [facility] 02-16-2025 10:00-0400 Systolic Blood Pressure Non-Invasive 122 mm[Hg] PINA PANTOJA [employer] OPERATOR-EMPLOYER RELATIONS REPRESENTATIVE [facility] 02-16-2025 09:40-0400 Heart rate 60 /min PINA PANTOJA [employer] OPERATOR-EMPLOYER RELATIONS REPRESENTATIVE [facility] 02-16-2025 09:40-0400 Body temperature 97.52 [degF] PINA PANTOJA [employer] OPERATOR-EMPLOYER RELATIONS REPRESENTATIVE [facility] 02-16-2025 09:40-0400 Diastolic Blood Pressure Non-Invasive 79 mm[Hg] PINA PANTOJA [employer] OPERATOR-EMPLOYER RELATIONS REPRESENTATIVE [facility] 02-16-2025 09:40-0400 Mean blood pressure 88 mm[Hg] PINA PANTOJA [employer] OPERATOR-EMPLOYER RELATIONS REPRESENTATIVE [facility] 02-16-2025 09:40-0400 Respiratory rate 16 /min PINAALICE PANTOJA [employer]ER OPERATOR-EMPLOYER RELATIONS REPRESENTATIVE [facility] 02-16-2025 09:40-0400 Systolic Blood Pressure Non-Invasive 104 mm[Hg] PINAALICE PANTOJA [employer] OPERATOR-EMPLOYER RELATIONS REPRESENTATIVE [facility] 02-16-2025 09:25-0400 Diastolic Blood Pressure Non-Invasive 71 mm[Hg] PINAALICE PANTOJA [employer]ER OPERATOR-EMPLOYER RELATIONS REPRESENTATIVE [facility] 02-16-2025 09:25-0400 Mean blood pressure 83 mm[Hg] PINAALICE PANTOJA [employer] OPERATOR-EMPLOYER RELATIONS REPRESENTATIVE [facility] 02-16-2025 09:25-0400 Systolic Blood Pressure Non-Invasive 107 mm[Hg] PINA PANTOJA [employer] OPERATOR-EMPLOYER RELATIONS REPRESENTATIVE [facility] 02-16-2025 09:25-0400 Heart rate 67 /min PINAALICE PANTOJA [employer] OPERATOR-EMPLOYER RELATIONS REPRESENTATIVE [facility] 02-16-2025 09:25-0400 Respiratory rate 16 /min PINAALICE PANTOJA [employer] OPERATOR-EMPLOYER RELATIONS REPRESENTATIVE [facility] 02-16-2025 09:10-0400 Mean blood pressure 101 mm[Hg] PINAALICE PANTOJA [employer] OPERATOR-EMPLOYER RELATIONS REPRESENTATIVE [facility] 02-16-2025 09:10-0400 Blood Pressure Cuff Size PINAALICE PANTOJA [employer] OPERATOR-EMPLOYER RELATIONS REPRESENTATIVE [facility] 02-16-2025 09:10-0400 Blood Pressure Location PINAALICE PANTOJA [employer] OPERATOR-EMPLOYER RELATIONS REPRESENTATIVE [facility] 02-16-2025 09:10-0400 Blood Pressure Method PINA PANTOJA [employer] OPERATOR-EMPLOYER RELATIONS REPRESENTATIVE [facility] 02-16-2025 09:10-0400 Body temperature 97.52 [degF] PINA PANTOJA [employer] OPERATOR-EMPLOYER RELATIONS REPRESENTATIVE [facility] 02-16-2025 09:00-0400 Respiratory Rate - Anes 4 br/min PINA PANTOJA [employer] OPERATOR-EMPLOYER RELATIONS REPRESENTATIVE [facility] 02-16-2025 08:55-0400 Respiratory Rate - Anes 19 br/min PINA PANTOJA [employer] OPERATOR-EMPLOYER RELATIONS REPRESENTATIVE [facility] 02-16-2025 08:50-0400 Respiratory Rate - Anes 10 br/min PINA PANTOJA [employer] OPERATOR-EMPLOYER RELATIONS REPRESENTATIVE [facility] 02-16-2025 06:37-0400 Body height 167.6 cm PINA PANTOJA [employer] OPERATOR-EMPLOYER RELATIONS REPRESENTATIVE [facility] 02-16-2025 06:37-0400 Body weight 110.7 kg PINA PANTOJA [employer] OPERATOR-EMPLOYER RELATIONS REPRESENTATIVE [facility] 02-16-2025 06:37-0400 Heart rate 70 /min PINA PANTOJA [employer] OPERATOR-EMPLOYER RELATIONS REPRESENTATIVE [facility] 12-22-2024 12:10-0500 Body temperature 96.98 [degF] NASRIN ISABEL MD [facility] 12-22-2024 12:10-0500 Diastolic Blood Pressure Non-Invasive 66 mm[Hg] NASRIN ISABEL MD [facility] 12-22-2024 12:10-0500 Heart rate 54 /min NASRIN ISABEL MD [facility] 12-22-2024 12:10-0500 Respiratory rate 16 /min NASRIN ISABEL MD [facility] 12-22-2024 12:10-0500 Systolic Blood Pressure Non-Invasive 106 mm[Hg] NASRIN ISABEL MD [facility] 12-22-2024 11:54-0500 Body temperature 97.34 [degF] NASRIN ISABEL MD [facility] 12-22-2024 11:54-0500 Diastolic Blood Pressure Non-Invasive 77 mm[Hg] NASRIN ISABEL MD [facility] 12-22-2024 11:54-0500 Heart rate 53 /min NASRIN ISABEL MD [facility] 12-22-2024 11:54-0500 Mean blood pressure 89 mm[Hg] NASRIN ISABEL MD [facility] 12-22-2024 11:54-0500 Respiratory rate 18 /min NASRIN ISABEL MD [facility] 12-22-2024 11:54-0500 Systolic Blood Pressure Non-Invasive 117 mm[Hg] NASRIN ISABEL MD [facility] 12-22-2024 11:35-0500 Diastolic Blood Pressure Non-Invasive 80 mm[Hg] NASRIN ISABEL MD [facility] 12-22-2024 11:35-0500 Heart rate 51 /min NASRIN ISABEL MD [facility] 12-22-2024 11:35-0500 Mean blood pressure 89 mm[Hg] NASRIN ISABEL MD [facility] 12-22-2024 11:35-0500 Respiratory rate 18 /min NASRIN ISABEL MD [facility] 12-22-2024 11:35-0500 Systolic Blood Pressure Non-Invasive 111 mm[Hg] NASRIN ISABEL MD [facility] 12-22-2024 11:20-0500 Body temperature 97.16 [degF] NASRIN ISABEL MD [facility] 12-22-2024 11:20-0500 Heart rate 76 /min NASRIN ISABEL MD [facility] 12-22-2024 11:20-0500 Mean blood pressure 108 mm[Hg] NASRIN ISABEL MD [facility] 12-22-2024 11:15-0500 Respiratory Rate - Anes 0 br/min NASRIN ISABEL MD [facility] 12-22-2024 11:10-0500 Respiratory Rate - Anes 6 br/min NASRIN ISABEL MD [facility] 12-22-2024 11:05-0500 Respiratory Rate - Anes 13 br/min NASRIN ISABEL MD [facility] 12-22-2024 10:45-0500 Body temperature 96.8 [degF] NASRIN ISABEL MD [facility] 12-22-2024 10:30-0500 Body temperature 96.8 [degF] NASRIN ISABEL MD [facility] 12-22-2024 10:15-0500 Body temperature 96.8 [degF] NASRIN ISABEL MD [facility] 12-22-2024 08:08-0500 Body height 167.6 cm NASRIN ISABEL MD [facility] 12-22-2024 08:08-0500 Body weight 53.6 kg NASRIN ISABEL MD [facility] 12-22-2024 08:08-0500 Heart rate 57 /min NASRIN ISABEL MD [facility] 08-11-2024 12:08-0400 Body temperature 96.62 [degF] NASRIN ISABEL MD [facility] 08-11-2024 12:08-0400 Diastolic Blood Pressure Non-Invasive 94 mm[Hg] NASRIN ISABEL MD [facility] 08-11-2024 12:08-0400 Heart rate 80 /min NASRIN ISABEL MD [facility] 08-11-2024 12:08-0400 Heart rate 64 /min NASRIN ISABEL MD [facility] 08-11-2024 12:08-0400 Respiratory rate 16 /min NASRIN ISABEL MD [facility] 08-11-2024 12:08-0400 Systolic Blood Pressure Non-Invasive 137 mm[Hg] NASRIN ISABEL MD [facility] 08-11-2024 11:44-0400 Heart rate 59 /min NASRIN ISABEL MD [facility] 08-11-2024 11:35-0400 Body temperature 96.8 [degF] NASRIN ISABEL MD [facility] 08-11-2024 11:35-0400 Diastolic Blood Pressure Non-Invasive 97 mm[Hg] NASRIN ISABEL MD [facility] 08-11-2024 11:35-0400 Heart rate 61 /min NASRIN ISABEL MD [facility] 08-11-2024 11:35-0400 Mean blood pressure 108 mm[Hg] NASRIN ISABEL MD [facility] 08-11-2024 11:35-0400 Respiratory rate 16 /min NASRIN ISABEL MD [facility] 08-11-2024 11:35-0400 Systolic Blood Pressure Non-Invasive 127 mm[Hg] NASRIN ISABEL MD [facility] 08-11-2024 11:20-0400 Diastolic Blood Pressure Non-Invasive 99 mm[Hg] NASRIN ISABEL MD [facility] 08-11-2024 11:20-0400 Mean blood pressure 113 mm[Hg] NASRIN ISABEL MD [facility] 08-11-2024 11:20-0400 Respiratory rate 16 /min NASRIN ISABEL MD [facility] 08-11-2024 11:20-0400 Systolic Blood Pressure Non-Invasive 138 mm[Hg] NASRIN ISABEL MD [facility] 08-11-2024 10:50-0400 Body temperature 97.16 [degF] NASRIN ISABEL MD [facility] 08-11-2024 10:40-0400 Respiratory Rate - Anes 0 br/min NASRIN ISABEL MD [facility] 08-11-2024 10:35-0400 Body temperature 96.82 [degF] NASRIN ISABEL MD [facility] 08-11-2024 10:35-0400 Respiratory Rate - Anes 9 br/min NASRIN ISABEL MD [facility] 08-11-2024 10:30-0400 Body temperature 96.73 [degF] NASRIN ISABEL MD [facility] 08-11-2024 10:30-0400 Respiratory Rate - Anes 9 br/min NASRIN ISABEL MD [facility] 08-11-2024 10:25-0400 Body temperature 96.8 [degF] NASRIN ISABEL MD [facility] 08-11-2024 08:31-0400 Body height 163.8 cm NASRIN ISABEL MD [facility] 08-11-2024 08:31-0400 Body weight 59.5 kg NASRIN ISABEL MD [facility] 08-11-2024 08:31-0400 Heart rate 72 /min NASRIN ISABEL MD [facility] 08-06-2024 07:07-0400 Blood Pressure Cuff Size NASRIN ISABEL MD [facility] 08-06-2024 07:07-0400 Blood Pressure Location NASRIN ISABEL MD [facility] 08-06-2024 07:07-0400 Blood Pressure Method NASRIN ISABEL MD [facility] 08-06-2024 07:07-0400 Body height 165 cm NASRIN ISABEL MD [facility] 08-06-2024 07:07-0400 Body temperature 98.06 [degF] NASRIN ISABEL MD [facility] 08-06-2024 07:07-0400 Body weight 59.8 kg NASRIN ISABEL MD [facility] 08-06-2024 07:07-0400 Body weight 21.97 kg/m2 NASRIN ISABEL MD [facility] 08-06-2024 07:07-0400 Diastolic Blood Pressure Non-Invasive 75 mm[Hg] NASRIN ISABEL MD [facility] 08-06-2024 07:07-0400 Heart rate 64 /min NASRIN ISABEL MD [facility] 08-06-2024 07:07-0400 Systolic Blood Pressure Non-Invasive 151 mm[Hg] NASRIN ISABEL MD [facility] 06-09-2024 10:50-0400 Body temperature 96.98 [degF] NASRIN ISABEL MD [facility] 06-09-2024 10:50-0400 Diastolic Blood Pressure Non-Invasive 86 mm[Hg] NASRIN ISABEL MD [facility] 06-09-2024 10:50-0400 Heart rate 58 /min NASRIN ISABEL MD [facility] 06-09-2024 10:50-0400 Respiratory rate 18 /min NASRIN ISABEL MD [facility] 06-09-2024 10:50-0400 Systolic Blood Pressure Non-Invasive 122 mm[Hg] NASRIN ISABEL MD [facility] 06-09-2024 10:40-0400 Body temperature 96.8 [degF] NASRIN ISABEL MD [facility] 06-09-2024 10:40-0400 Diastolic Blood Pressure Non-Invasive 98 mm[Hg] NASRIN ISABEL MD [facility] 06-09-2024 10:40-0400 Heart rate 59 /min NASRIN ISABEL MD [facility] 06-09-2024 10:40-0400 Mean blood pressure 108 mm[Hg] NASRIN ISABEL MD [facility] 06-09-2024 10:40-0400 Respiratory rate 16 /min NASRIN ISABEL MD [facility] 06-09-2024 10:40-0400 Systolic Blood Pressure Non-Invasive 121 mm[Hg] NASRIN ISABEL MD [facility] 06-09-2024 10:25-0400 Diastolic Blood Pressure Non-Invasive 94 mm[Hg] NASRIN ISABEL MD [facility] 06-09-2024 10:25-0400 Heart rate 54 /min NASRIN ISABEL MD [facility] 06-09-2024 10:25-0400 Mean blood pressure 108 mm[Hg] NASRIN ISABEL MD [facility] 06-09-2024 10:25-0400 Respiratory rate 16 /min NASRIN ISABEL MD [facility] 06-09-2024 10:25-0400 Systolic Blood Pressure Non-Invasive 142 mm[Hg] NASRIN ISABEL MD [facility] 06-09-2024 10:10-0400 Heart rate 57 /min NASRIN ISABEL MD [facility] 06-09-2024 10:10-0400 Mean blood pressure 111 mm[Hg] NASRIN ISABEL MD [facility] 06-09-2024 09:40-0400 Body temperature 97.16 [degF] NASRIN ISABEL MD [facility] 06-09-2024 09:35-0400 Respiratory Rate - Anes 13 br/min NASRIN ISABEL MD [facility] 06-09-2024 09:30-0400 Respiratory Rate - Anes 5 br/min NASRIN ISABEL MD [facility] 06-09-2024 09:25-0400 Respiratory Rate - Anes 6 br/min NASRIN ISABEL MD [facility] 06-09-2024 09:20-0400 Body temperature 96.73 [degF] NASRIN ISABEL MD [facility] 06-09-2024 09:15-0400 Body temperature 96.69 [degF] NASRIN ISABEL MD [facility] 06-09-2024 09:10-0400 Body temperature 96.55 [degF] NASRIN ISABEL MD [facility] 06-09-2024 06:48-0400 Body weight 21.18 kg/m2 NASRIN ISABEL MD [facility] 06-09-2024 06:46-0400 Body height 167.6 cm NASRIN ISABEL MD [facility] 06-09-2024 06:46-0400 Body weight 59.5 kg NASRIN ISABEL MD [facility] 06-09-2024 06:46-0400 Heart rate 70 /min NASRIN ISABEL MD [facility] 04-14-2024 13:47-0400 Body temperature 95.72 [degF] OLE PACE MD [facility] 04-14-2024 13:47-0400 Diastolic Blood Pressure Non-Invasive 88 mm[Hg] OLE PACE MD [facility] 04-14-2024 13:47-0400 Heart rate 54 /min OLE PACE MD [facility] 04-14-2024 13:47-0400 Reason For Taking VItal Signs OLE PACE MD [facility] 04-14-2024 13:47-0400 Respiratory rate 16 /min OLE PACE MD [facility] 04-14-2024 13:47-0400 Systolic Blood Pressure Non-Invasive 123 mm[Hg] OLE PACE MD [facility] 04-14-2024 13:40-0400 Body temperature 96.8 [degF] OLE PACE MD [facility] 04-14-2024 13:40-0400 Diastolic Blood Pressure Non-Invasive 84 mm[Hg] OLE PACE MD [facility] 04-14-2024 13:40-0400 Heart rate 53 /min OLE PACE MD [facility] 04-14-2024 13:40-0400 Mean blood pressure 92 mm[Hg] OLE PACE MD [facility] 04-14-2024 13:40-0400 Respiratory rate 16 /min OLE PACE MD [facility] 04-14-2024 13:40-0400 Systolic Blood Pressure Non-Invasive 113 mm[Hg] OLE PACE MD [facility] 04-14-2024 13:25-0400 Body temperature 97.34 [degF] OLE PACE MD [facility] 04-14-2024 13:25-0400 Diastolic Blood Pressure Non-Invasive 85 mm[Hg] OLE PACE MD [facility] 04-14-2024 13:25-0400 Heart rate 47 /min OLE PACE MD [address] [place] [address] 04-14-2024 13:25-0400 Mean blood pressure 95 mm[Hg] OLE PACE MD [address] 04-14-2024 13:25-0400 Respiratory rate 16 /min OLE PACE MD [address] [place] [address] 04-14-2024 13:25-0400 Systolic Blood Pressure Non-Invasive 123 mm[Hg] OLE PACE MD [address] [place] [address] 04-14-2024 13:15-0400 Heart rate 61 /min OLE PACE MD [address] [place] [address] 04-14-2024 13:15-0400 Respiratory Rate - Anes 11 br/min OLE PACE MD [address] [place] [address] 04-14-2024 13:10-0400 Respiratory Rate - Anes 14 br/min OLE PACE MD [facility] 04-14-2024 13:05-0400 Respiratory Rate - Anes 0 br/min OLE PACE MD [address] [place] [address] 04-14-2024 11:36-0400 Body height 167.6 cm OLE PACE MD [address] [place] [address] 04-14-2024 11:36-0400 Body weight 61.5 kg OLE PACE MD [address] [place] [address] 04-14-2024 11:36-0400 Heart rate 79 /min OLE PACE MD [facility] 03-03-2024 15:27-0400 Body temperature 97.52 [degF] OLE PACE MD [facility] 03-03-2024 15:27-0400 Diastolic blood pressure 95 mm[Hg] OLE PACE MD [facility] 03-03-2024 15:27-0400 Heart rate 58 /min OLE PACE MD [facility] 03-03-2024 15:27-0400 Respiratory rate 16 /min OLE PACE MD [address] [place] [address] 03-03-2024 15:27-0400 Systolic blood pressure 140 mm[Hg] OLE PACE MD [address] 03-03-2024 13:53-0400 Body temperature 96.98 [degF] OLE PACE MD [facility] 03-03-2024 13:53-0400 Diastolic Blood Pressure Non-Invasive 81 mm[Hg] OLE PACE MD [address] 03-03-2024 13:53-0400 Heart rate 62 /min OLE PACE MD [address] [place] [address] 03-03-2024 13:53-0400 Reason For Taking VItal Signs OLE PACE MD [facility] 03-03-2024 13:53-0400 Respiratory rate 16 /min OLE PACE MD [facility] 03-03-2024 13:53-0400 Systolic Blood Pressure Non-Invasive 125 mm[Hg] OLE PACE MD [address] [place] [address] 03-03-2024 13:45-0400 Heart rate 69 /min OLE PACE MD [facility] 03-03-2024 13:45-0400 Respiratory Rate - Anes 17 br/min OLE PACE MD [address] [place] [address] 03-03-2024 13:44-0400 Diastolic Blood Pressure Non-Invasive 95 mm[Hg] OLE PACE MD [address] [place] [address] 03-03-2024 13:44-0400 Systolic Blood Pressure Non-Invasive 139 mm[Hg] OLE PACE MD [address] [place] [address] 03-03-2024 13:40-0400 Diastolic Blood Pressure Non-Invasive 93 mm[Hg] OLE PACE MD [address] [place] [address] 03-03-2024 13:40-0400 Heart rate 86 /min OLE PACE MD [address] [place] [address] 03-03-2024 13:40-0400 Respiratory Rate - Anes 14 br/min OLE PACE MD [address] [place] [address] 03-03-2024 13:40-0400 Systolic Blood Pressure Non-Invasive 122 mm[Hg] OLE PACE MD [address] [place] [address] 03-03-2024 13:35-0400 Heart rate 78 /min OLE PACE MD [address] [place] [address] 03-03-2024 13:35-0400 Respiratory Rate - Anes 20 br/min OLE PACE MD [address] [place] [address] 03-03-2024 11:18-0400 Body height 167.6 cm OLE PACE MD [address] [place] [address] 03-03-2024 11:18-0400 Body temperature 98.96 [degF] OLE PACE MD [address] [place] [address] 03-03-2024 11:18-0400 Body weight 59.5 kg OLE PACE MD [address] [place] [address] 03-03-2024 11:18-0400 Heart rate 64 /min OLE PACE MD [address] [place] [address] 03-03-2024 11:18-0400 Respiratory rate 16 /min OLE PACE MD [address] [place] [address] 01-21-2024 15:05-0400 Body temperature 97.34 [degF] OLE PACE MD [facility] 01-21-2024 15:05-0400 Diastolic blood pressure 81 mm[Hg] OLE PACE MD [facility] 01-21-2024 15:05-0400 Heart rate 84 /min OLE PACE MD [facility] 01-21-2024 15:05-0400 Respiratory rate 16 /min OLE PACE MD [facility] 01-21-2024 15:05-0400 Systolic blood pressure 118 mm[Hg] OLE PACE MD [facility] 01-21-2024 13:53-0400 Body temperature 97.7 [degF] OLE PACE MD [facility] 01-21-2024 13:53-0400 Diastolic Blood Pressure Non-Invasive 85 mm[Hg] OLE PACE MD [facility] 01-21-2024 13:53-0400 Heart rate 71 /min OLE PACE MD [facility] 01-21-2024 13:53-0400 Respiratory rate 16 /min OLE PACE MD [facility] 01-21-2024 13:53-0400 Systolic Blood Pressure Non-Invasive 122 mm[Hg] OLE PACE MD [facility] 01-21-2024 13:38-0400 Diastolic Blood Pressure Non-Invasive 89 mm[Hg] OLE PACE MD [facility] 01-21-2024 13:38-0400 Systolic Blood Pressure Non-Invasive 122 mm[Hg] OLE PACE MD [facility] 01-21-2024 13:35-0400 Diastolic Blood Pressure Non-Invasive 80 mm[Hg] OLE PACE MD [facility] 01-21-2024 13:35-0400 Heart rate 89 /min OLE PACE MD [facility] 01-21-2024 13:35-0400 Respiratory Rate - Anes 13 br/min OLE PACE MD [facility] 01-21-2024 13:35-0400 Systolic Blood Pressure Non-Invasive 104 mm[Hg] OLE PACE MD [facility] 01-21-2024 13:30-0400 Heart rate 82 /min OLE PACE MD [facility] 01-21-2024 13:30-0400 Respiratory Rate - Anes 11 br/min LOE PACE MD [facility] 01-21-2024 13:25-0400 Heart rate 82 /min OLE PACE MD [facility] 01-21-2024 13:25-0400 Respiratory Rate - Anes 12 br/min OLE PACE MD [facility] 01-21-2024 11:50-0400 Body height 167.6 cm OLE PACE MD [facility] 01-21-2024 11:50-0400 Body temperature 98.42 [degF] OLE PACE MD [facility] 01-21-2024 11:50-0400 Body weight 58.2 kg OLE PACE MD [facility] 01-21-2024 11:50-0400 Heart rate 87 /min OLE PACE MD [facility] 01-21-2024 11:50-0400 Respiratory rate 16 /min OLE PACE MD [facility] 12-03-2023 13:39-0500 Body temperature 96.8 [degF] BRITTNI LU BRIM GRE[employer]ER OPERATOR-EMPLOYER RELATIONS REPRESENTATIVE [facility] 12-03-2023 13:39-0500 Diastolic blood pressure 95 mm[Hg] BRITTNI PRATHERZ [employer]ER OPERATOR-EMPLOYER RELATIONS REPRESENTATIVE [facility] 12-03-2023 13:39-0500 Heart rate 51 /min BRITTNI LU [employer] OPERATOR-EMPLOYER RELATIONS REPRESENTATIVE [facility] 12-03-2023 13:39-0500 Respiratory rate 16 /min BRITTNI LU [employer] OPERATOR-EMPLOYER RELATIONS REPRESENTATIVE [facility] 12-03-2023 13:39-0500 Systolic blood pressure 141 mm[Hg] BRITTNI LU [employer] OPERATOR-EMPLOYER RELATIONS REPRESENTATIVE [facility] 12-03-2023 12:10-0500 Body temperature 97.34 [degF] BRITTNI LU [employer] OPERATOR-EMPLOYER RELATIONS REPRESENTATIVE [facility] 12-03-2023 12:10-0500 Diastolic Blood Pressure Non-Invasive 88 mm[Hg] BRITTNI LU [employer] OPERATOR-EMPLOYER RELATIONS REPRESENTATIVE [facility] 12-03-2023 12:10-0500 Heart rate 69 /min BRITTNI LU [employer] OPERATOR-EMPLOYER RELATIONS REPRESENTATIVE [facility] 12-03-2023 12:10-0500 Respiratory rate 16 /min BRITTNI LU [employer] OPERATOR-EMPLOYER RELATIONS REPRESENTATIVE [facility] 12-03-2023 12:10-0500 Systolic Blood Pressure Non-Invasive 134 mm[Hg] BRITTNI LU [employer]ER OPERATOR-EMPLOYER RELATIONS REPRESENTATIVE [facility] 12-03-2023 11:50-0500 Respiratory Rate - Anes 11 br/min BRITTNI LU [employer] OPERATOR-EMPLOYER RELATIONS REPRESENTATIVE [facility] 12-03-2023 11:48-0500 Diastolic Blood Pressure Non-Invasive 83 mm[Hg] BRITTNI LU [employer]ER OPERATOR-EMPLOYER RELATIONS REPRESENTATIVE [facility] 12-03-2023 11:48-0500 Systolic Blood Pressure Non-Invasive 120 mm[Hg] BRITTNI UL BRIM [employer]ER OPERATOR-EMPLOYER RELATIONS REPRESENTATIVE [facility] 12-03-2023 11:45-0500 Body temperature 96.8 [degF] BRITTNI LU [employer] OPERATOR-EMPLOYER RELATIONS REPRESENTATIVE [facility] 12-03-2023 11:45-0500 Diastolic Blood Pressure Non-Invasive 80 mm[Hg] BRITTNI LU [employer]ER OPERATOR-EMPLOYER RELATIONS REPRESENTATIVE [facility] 12-03-2023 11:45-0500 Heart rate 71 /min BRITTNI LU [employer]ER OPERATOR-EMPLOYER RELATIONS REPRESENTATIVE [facility] 12-03-2023 11:45-0500 Respiratory Rate - Anes 17 br/min BRITTNI LU [employer] OPERATOR-EMPLOYER RELATIONS REPRESENTATIVE [facility] 12-03-2023 11:45-0500 Systolic Blood Pressure Non-Invasive 117 mm[Hg] BRITTNI LU BR[employer]ER OPERATOR-EMPLOYER RELATIONS REPRESENTATIVE [facility] 12-03-2023 11:40-0500 Body temperature 96.8 [degF] BRITTNI LU BR[employer]ER OPERATOR-EMPLOYER RELATIONS REPRESENTATIVE [facility] 12-03-2023 11:40-0500 Heart rate 76 /min BRITTNI LU [employer] OPERATOR-EMPLOYER RELATIONS REPRESENTATIVE [facility] 12-03-2023 11:40-0500 Respiratory Rate - Anes 20 br/min BRITTNI LU [employer] OPERATOR-EMPLOYER RELATIONS REPRESENTATIVE [facility] 12-03-2023 11:35-0500 Body temperature 96.8 [degF] BRITTNI LU [employer]ER OPERATOR-EMPLOYER RELATIONS REPRESENTATIVE [facility] 12-03-2023 11:35-0500 Heart rate 76 /min BRITTNI LU [employer] OPERATOR-EMPLOYER RELATIONS REPRESENTATIVE [facility] 12-03-2023 09:41-0500 Body height 167.6 cm BRITTNI LU [employer]ER OPERATOR-EMPLOYER RELATIONS REPRESENTATIVE [facility] 12-03-2023 09:41-0500 Body temperature 97.52 [degF] BRITTNI LU BR[employer]ER OPERATOR-EMPLOYER RELATIONS REPRESENTATIVE [facility] 12-03-2023 09:41-0500 Body weight 58.6 kg BRITTNI LU [employer]ER OPERATOR-EMPLOYER RELATIONS REPRESENTATIVE [facility] 12-03-2023 09:41-0500 Heart rate 78 /min BRITTNI LU [employer]ER OPERATOR-EMPLOYER RELATIONS REPRESENTATIVE [facility] 12-03-2023 09:41-0500 Respiratory rate 18 /min BRITTNI POPEDEZ BRIM [employer]ER OPERATOR-EMPLOYER RELATIONS REPRESENTATIVE [facility] 10-22-2023 16:30-0500 Body temperature 96.98 [degF] BRITTNI LU BRIM [employer]ER OPERATOR-EMPLOYER RELATIONS REPRESENTATIVE [facility] 10-22-2023 16:30-0500 Diastolic Blood Pressure Non-Invasive 81 mm[Hg] BRITTNI LU BRIM [employer]ER OPERATOR-EMPLOYER RELATIONS REPRESENTATIVE [facility] 10-22-2023 16:30-0500 Heart rate 72 /min BRITTNI LU BRIM [employer]ER OPERATOR-EMPLOYER RELATIONS REPRESENTATIVE [facility] 10-22-2023 16:30-0500 Respiratory rate 16 /min BRITTNI LU BR[employer]ER OPERATOR-EMPLOYER RELATIONS REPRESENTATIVE [facility] 10-22-2023 16:30-0500 Systolic Blood Pressure Non-Invasive 115 mm[Hg] BRITTNI LU BRIM [employer]ER OPERATOR-EMPLOYER RELATIONS REPRESENTATIVE [facility] 10-22-2023 16:15-0500 Body temperature 97.34 [degF] BRITTNI LU BRIM GREASER OPERATOR-EMPLOYER RELATIONS REPRESENTATIVE [facility] 10-22-2023 16:15-0500 Diastolic Blood Pressure Non-Invasive 76 mm[Hg] BRITTNI LU BRIM [employer]ER OPERATOR-EMPLOYER RELATIONS REPRESENTATIVE [facility] 10-22-2023 16:15-0500 Respiratory rate 16 /min BRITTNI LU BRIM [employer]ER OPERATOR-EMPLOYER RELATIONS REPRESENTATIVE [facility] 10-22-2023 16:15-0500 Systolic Blood Pressure Non-Invasive 107 mm[Hg] BRITTNI LU BRIM [employer]ER OPERATOR-EMPLOYER RELATIONS REPRESENTATIVE [facility] 10-22-2023 16:10-0500 Diastolic Blood Pressure Non-Invasive 76 mm[Hg] BRITTNI LU BRIM [employer]ER OPERATOR-EMPLOYER RELATIONS REPRESENTATIVE [facility] 10-22-2023 16:10-0500 Heart rate 52 /min BRITTNI POPEDEZ BRIM GREASER OPERATOR-EMPLOYER RELATIONS REPRESENTATIVE [facility] 10-22-2023 16:10-0500 Mean blood pressure 87 mm[Hg] BRITTNI LU BRIM GREASER OPERATOR-EMPLOYER RELATIONS REPRESENTATIVE [facility] 10-22-2023 16:10-0500 Systolic Blood Pressure Non-Invasive 107 mm[Hg] BRITTNI POPEDEZ BRIM GREASER OPERATOR-EMPLOYER RELATIONS REPRESENTATIVE [facility] 10-22-2023 15:51-0500 Heart rate 49 /min BRITTNI POPEDEZ BRIM GREASER OPERATOR-EMPLOYER RELATIONS REPRESENTATIVE [facility] 10-22-2023 15:51-0500 Respiratory rate 16 /min BRITTNI LU BRIM [employer]ER OPERATOR-EMPLOYER RELATIONS REPRESENTATIVE [facility] 10-22-2023 15:35-0500 Heart rate 50 /min BRITTNI POPEDEZ BRIM GREASER OPERATOR-EMPLOYER RELATIONS REPRESENTATIVE [facility] 10-22-2023 15:18-0500 Mean blood pressure 111 mm[Hg] BRITTNI LU BRIM GREASER OPERATOR-EMPLOYER RELATIONS REPRESENTATIVE [facility] 10-22-2023 15:05-0500 Body temperature 97.34 [degF] BRITTNI LU BRIM GREASER OPERATOR-EMPLOYER RELATIONS REPRESENTATIVE [facility] 10-22-2023 10:16-0500 Body height 167.6 cm BRITTNI LU BRIM GREASER OPERATOR-EMPLOYER RELATIONS REPRESENTATIVE [facility] 10-22-2023 10:16-0500 Body weight 61.4 kg BRITTNI LU BRIM GREASER OPERATORMonster DigitalEMPLOYER RELATIONS REPRESENTATIVE [facility] 10-22-2023 10:16-0500 Heart rate 76 /min BRITTNI POPEDEZ BRIM GREASER OPERATORMonster DigitalEMPLOYER RELATIONS REPRESENTATIVE [facility] 07-24-2023 16:14-0400 Body temperature 97.16 [degF] FLIP MARTIN MD [facility] 07-24-2023 16:14-0400 Diastolic Blood Pressure Non-Invasive 82 1 FLIP MARTIN MD [facility] 07-24-2023 16:14-0400 Heart rate 65 /min FLIP MARTIN MD [facility] 07-24-2023 16:14-0400 Respiratory rate 16 /min FLIP MARTIN MD [facility] 07-24-2023 16:14-0400 Systolic Blood Pressure Non-Invasive 109 1 FLIP MARTIN MD [facility] 07-24-2023 16:00-0400 Body temperature 97.52 [degF] FLIP MARTIN MD [facility] 07-24-2023 16:00-0400 Heart rate 81 /min FLIP MARTIN MD [facility] 07-24-2023 16:00-0400 systolic 108 mm[Hg] FLPI MARTIN MD [facility] 07-24-2023 15:45-0400 Diastolic Blood Pressure Non-Invasive 74 1 FLIP MARTIN MD [facility] 07-24-2023 15:45-0400 Heart rate 85 /min FLIP MARTIN MD [facility] 07-24-2023 15:45-0400 Mean blood pressure 84 mm[Hg] FLIP MARTIN MD [facility] 07-24-2023 15:45-0400 Respiratory rate 16 /min FLIP MARTIN MD [facility] 07-24-2023 15:45-0400 Systolic Blood Pressure Non-Invasive 106 1 FLIP MARTIN MD [facility] 07-24-2023 15:30-0400 diastolic 87 mm[Hg] FLIP MARTIN MD [facility] 07-24-2023 15:30-0400 Heart rate 78 /min FLIP MARTIN MD [facility] 07-24-2023 15:00-0400 Mean blood pressure 92 mm[Hg] FLIP MARTIN MD [facility] 07-24-2023 14:34-0400 Mean blood pressure 114 mm[Hg] FLIP MARTIN MD [facility] 07-24-2023 14:00-0400 Body temperature 97.34 [degF] FLIP MARTIN MD [facility] 07-24-2023 13:55-0400 Respiratory Rate - Anes 17 br/min FLIP MARTIN MD [facility] 07-24-2023 13:50-0400 Body temperature 93.88 [degF] FLIP MARTIN MD [facility] 07-24-2023 13:50-0400 Respiratory Rate - Anes 14 br/min FLIP MARTIN MD [facility] 07-24-2023 13:45-0400 Body temperature 93.9 [degF] FLIP MARTIN MD [facility] 07-24-2023 13:45-0400 Respiratory Rate - Anes 16 br/min FLIP MARTIN MD [facility] 07-24-2023 13:40-0400 Body temperature 93.87 [degF] FLIP MARTIN MD [facility] 07-24-2023 10:08-0400 Body height 167.6 cm FLIP MARTIN MD [facility] 07-24-2023 10:08-0400 Body weight 67.8 kg FLIP MARTIN MD [facility] 07-24-2023 10:08-0400 Heart rate 100 /min FLIP MARTIN MD [facility] 07-16-2023 09:45-0400 Body temperature 97.88 [degF] FLIP MARTIN MD [facility] 07-16-2023 09:45-0400 Diastolic Blood Pressure Non-Invasive 81 1 FLIP MARTIN MD [facility] 07-16-2023 09:45-0400 Heart rate 103 /min FLIP MARTIN MD [facility] 07-16-2023 09:45-0400 Reason For Taking VItal Signs FLIP MARTIN MD [facility] 07-16-2023 09:45-0400 Respiratory rate 16 /min FLIP MARTIN MD [facility] 07-16-2023 09:45-0400 Systolic Blood Pressure Non-Invasive 107 1 FLIP MARTIN MD [facility] 07-16-2023 06:25-0400 Body temperature 98.42 [degF] FLIP MARTIN MD [facility] 07-16-2023 06:25-0400 Diastolic Blood Pressure Non-Invasive 77 1 FLIP MARTIN MD [facility] 07-16-2023 06:25-0400 Heart rate 106 /min FLIP MARTIN MD [facility] 07-16-2023 06:25-0400 Reason For Taking VItal Signs FLIP MARTIN MD [facility] 07-16-2023 06:25-0400 Respiratory rate 16 /min FLIP MARTIN MD [facility] 07-16-2023 06:25-0400 Systolic Blood Pressure Non-Invasive 110 1 FLIP MARTIN MD [facility] 07-16-2023 02:07-0400 Body temperature 98.6 [degF] FLIP MARTIN MD [facility] 07-16-2023 02:07-0400 Diastolic Blood Pressure Non-Invasive 81 1 FLIP MARTIN MD [facility] 07-16-2023 02:07-0400 Heart rate 97 /min FLIP MARTIN MD [facility] 07-16-2023 02:07-0400 Systolic Blood Pressure Non-Invasive 108 1 FLIP MARTIN MD [facility] 07-15-2023 21:54-0400 Respiratory rate 18 /min FLIP MARTIN MD [facility] 07-15-2023 15:00-0400 Reason For Taking VItal Signs FLIP MARTIN MD [facility] 07-15-2023 14:00-0400 Blood Pressure Cuff Size FLIP MARTIN MD [facility] 07-15-2023 14:00-0400 Blood Pressure Location FLIP MARTIN MD [facility] 07-15-2023 14:00-0400 Blood Pressure Method FLIP MARTIN MD [facility] 07-14-2023 22:31-0400 Blood Pressure Cuff Size FLIP MARTIN MD [facility] 07-14-2023 22:31-0400 Blood Pressure Location FLIP MARTIN MD [facility] 07-14-2023 22:31-0400 Blood Pressure Method FLIP MARTIN MD [facility] 07-14-2023 14:39-0400 Blood Pressure Cuff Size FLIP MARTIN MD [facility] 07-14-2023 14:39-0400 Blood Pressure Location FLIP MARTIN MD [facility] 07-14-2023 14:39-0400 Blood Pressure Method LFIP MARTIN MD [facility] 07-09-2023 19:11-0400 Heart rate 88 /min FLIP MARTIN MD [facility] 07-09-2023 14:26-0400 Heart rate 68 /min FLIP MARTIN MD [facility] 07-09-2023 13:50-0400 Heart rate 88 /min FLIP MARTIN MD [facility] 07-09-2023 07:02-0400 Body height 167.6 cm FLIP MARTIN MD [facility] 07-09-2023 07:02-0400 Body weight 62.8 kg FLIP MARTIN MD [facility] 07-09-2023 07:02-0400 Body weight 22.36 kg/m2 FLIP MARTIN MD [facility] 07-08-2023 20:24-0400 Body weight 62.8 kg FLIP MARTIN MD [facility] 05-07-2023 14:50-0400 Body temperature 97.88 [degF] FLIP MARTIN MD [facility] 05-07-2023 14:50-0400 Diastolic Blood Pressure Non-Invasive 87 1 FLIP MARTIN MD [facility] 05-07-2023 14:50-0400 Heart rate 90 /min FLIP MARTIN MD [facility] 05-07-2023 14:50-0400 Respiratory rate 16 /min FLIP MARTIN MD [facility] 05-07-2023 14:50-0400 Systolic Blood Pressure Non-Invasive 119 1 FLIP MARTIN MD [facility] 05-07-2023 09:41-0400 Body temperature 98.42 [degF] FLIP MARTIN MD [facility] 05-07-2023 09:41-0400 Diastolic Blood Pressure Non-Invasive 90 1 FLIP MARTIN MD [facility] 05-07-2023 09:41-0400 Heart rate 83 /min FLIP MARTIN MD [facility] 05-07-2023 09:41-0400 Respiratory rate 16 /min FLIP MARTIN MD [facility] 05-07-2023 09:41-0400 Systolic Blood Pressure Non-Invasive 148 1 FLIP MARTIN MD [facility] 05-07-2023 06:22-0400 Body temperature 98.24 [degF] FLIP MARTIN MD [facility] 05-07-2023 06:22-0400 Diastolic Blood Pressure Non-Invasive 74 1 FLIP MARTIN MD [facility] 05-07-2023 06:22-0400 Heart rate 81 /min FLIP MARTIN MD [facility] 05-07-2023 06:22-0400 Respiratory rate 16 /min FLIP MARTIN MD [facility] 05-07-2023 06:22-0400 Systolic Blood Pressure Non-Invasive 109 1 FLIP MARTIN MD [facility] 05-04-2023 15:52-0400 Blood Pressure Cuff Size FLIP MARTIN MD [facility] 05-04-2023 15:52-0400 Blood Pressure Location FLIP MARTIN MD [facility] 05-04-2023 15:52-0400 Blood Pressure Method FLIP MARTIN MD [facility] 05-04-2023 03:44-0400 Reason For Taking VItal Signs FLIP MARTIN MD [facility] 05-03-2023 23:02-0400 Reason For Taking VItal Signs FLIP MARTIN MD [facility] 05-03-2023 18:07-0400 Reason For Taking VItal Signs FLIP MARTIN MD [facility] 04-30-2023 18:27-0400 Blood Pressure Cuff Size FLIP MARTIN MD [facility] 04-30-2023 18:27-0400 Blood Pressure Location FLIP MARTIN MD [facility] 04-30-2023 18:27-0400 Blood Pressure Method FLIP MARTIN MD [facility] 04-30-2023 18:27-0400 Heart rate 79 /min FLIP MARTIN MD [facility] 04-30-2023 14:28-0400 Blood Pressure Cuff Size FLIP MARTIN MD [facility] 04-30-2023 14:28-0400 Heart rate 83 /min FLIP MARTIN MD [facility] 04-30-2023 10:52-0400 Heart rate 90 /min FLIP MARTIN MD [facility] 04-29-2023 11:30-0400 Respiratory Rate - Anes 18 br/min FLIP MARTIN MD [facility] 04-29-2023 10:40-0400 Heart rate 72 /min FLIP MARTIN MD [facility] 04-29-2023 10:25-0400 Heart rate 73 /min FLIP MARTIN MD [facility] 04-29-2023 10:20-0400 Heart rate 74 /min FLIP MARTIN MD [facility] 04-28-2023 13:10-0400 Body height 167 cm FLIP MARTIN MD [facility] 04-28-2023 13:10-0400 Body weight 63.9 kg FLIP MARTIN MD [facility] 04-28-2023 13:10-0400 Body weight 22.91 kg/m2 FLIP MARTIN MD [facility] 04-28-2023 01:00-0400 Mean blood pressure 106 mm[Hg] FLIP MARTIN MD [facility] 04-28-2023 00:45-0400 Mean blood pressure 113 mm[Hg] FLIP MARTIN MD [facility] 04-28-2023 00:30-0400 Mean blood pressure 110 mm[Hg] FLIP MARTIN MD [facility] 04-27-2023 16:11-0400 Body weight 63.9 kg FLIP MARTIN MD [facility] 03-05-2023 16:12-0400 Body temperature 98.6 [degF] FLIP MARTIN MD [facility] 03-05-2023 16:12-0400 Diastolic Blood Pressure Non-Invasive 80 1 FLIP MARTIN MD [facility] 03-05-2023 16:12-0400 Heart rate 87 /min FLIP MARTIN MD [facility] 03-05-2023 16:12-0400 Respiratory rate 16 /min FLIP MARTIN MD [facility] 03-05-2023 16:12-0400 Systolic Blood Pressure Non-Invasive 108 1 FLIP MARTIN MD [facility] 03-05-2023 07:05-0400 Body temperature 97.88 [degF] FLIP MARTIN MD [facility] 03-05-2023 07:05-0400 Diastolic Blood Pressure Non-Invasive 68 1 FLIP MARTIN MD [address] 03-05-2023 07:05-0400 Heart rate 96 /min FLIP MARTIN MD [address] 03-05-2023 07:05-0400 Respiratory rate 16 /min FLIP MARTIN MD [facility] 03-05-2023 07:05-0400 Systolic Blood Pressure Non-Invasive 99 1 FLIP MARTIN MD [facility] 03-04-2023 21:26-0400 Body temperature 98.42 [degF] FLIP MARTIN MD [facility] 03-04-2023 21:26-0400 Diastolic Blood Pressure Non-Invasive 88 1 FLPI MARTIN MD [facility] 03-04-2023 21:26-0400 Heart rate 93 /min FLIP MARTIN MD [facility] 03-04-2023 21:26-0400 Reason For Taking VItal Signs FLIP MARTIN MD [facility] 03-04-2023 21:26-0400 Respiratory rate 18 /min FLIP MARTIN MD [facility] 03-04-2023 21:26-0400 Systolic Blood Pressure Non-Invasive 122 1 FLIP MARTIN MD [facility] 03-03-2023 21:35-0400 Reason For Taking VItal Signs FLIP MARTIN MD [facility] 03-01-2023 20:41-0400 Reason For Taking VItal Signs FLIP MARTIN MD [facility] 03-01-2023 08:57-0400 Heart rate 68 /min FLIP MARTIN MD [facility] 03-01-2023 04:50-0400 Blood Pressure Location FLIP MARTIN MD [facility] 03-01-2023 04:50-0400 Blood Pressure Method FLIP MARTIN MD [facility] 02-23-2023 21:09-0400 Body height 167.6 cm FLIP MARTIN MD [facility] 02-23-2023 21:09-0400 Body weight 55.7 kg FLIP MARTIN MD [facility] 02-23-2023 21:09-0400 Body weight 19.83 kg/m2 FLIP MARTIN MD [facility] 02-23-2023 11:58-0400 Body temperature 97.7 [degF] FLIP MARTIN MD [facility] 02-23-2023 11:58-0400 Body weight 55.7 kg FLIP MARTIN MD [facility] 02-17-2023 11:08-0400 Diastolic Blood Pressure Non-Invasive 77 1 BRITTNI LU [employer]IM [employer] OPERATOR-EMPLOYER RELATIONS REPRESENTATIVE [facility] 02-17-2023 11:08-0400 Heart rate 85 /min BRITTNI LU [employer] OPERATOR-EMPLOYER RELATIONS REPRESENTATIVE [facility] 02-17-2023 11:08-0400 Respiratory rate 16 /min BRITTNI LU [employer] OPERATOR-EMPLOYER RELATIONS REPRESENTATIVE [facility] 02-17-2023 11:08-0400 Systolic Blood Pressure Non-Invasive 119 1 BRITTNI LU [employer] OPERATOR-EMPLOYER RELATIONS REPRESENTATIVE [facility] 02-17-2023 10:50-0400 Diastolic Blood Pressure Non-Invasive 83 1 BRITTNI LU [employer] OPERATOR-EMPLOYER RELATIONS REPRESENTATIVE [facility] 02-17-2023 10:50-0400 Heart rate 78 /min BRITTNI POPEDEZ [employer] OPERATOR-EMPLOYER RELATIONS REPRESENTATIVE [facility] 02-17-2023 10:50-0400 Respiratory rate 16 /min BRITTNI POPEDEZ [employer] OPERATOR-EMPLOYER RELATIONS REPRESENTATIVE [facility] 02-17-2023 10:50-0400 Systolic Blood Pressure Non-Invasive 137 1 BRITTNI LU [employer] OPERATOR-EMPLOYER RELATIONS REPRESENTATIVE [facility] 02-17-2023 10:35-0400 Diastolic Blood Pressure Non-Invasive 87 1 BRITTNI LU [employer] OPERATOR-EMPLOYER RELATIONS REPRESENTATIVE [facility] 02-17-2023 10:35-0400 Heart rate 84 /min BRITTNI LU [employer] OPERATOR-EMPLOYER RELATIONS REPRESENTATIVE [facility] 02-17-2023 10:35-0400 Respiratory rate 16 /min BRITTNI LU [employer] OPERATOR-EMPLOYER RELATIONS REPRESENTATIVE [facility] 02-17-2023 10:35-0400 Systolic Blood Pressure Non-Invasive 128 1 BRITTNI LU [employer] OPERATOR-EMPLOYER RELATIONS REPRESENTATIVE [facility] 02-17-2023 09:02-0400 Blood Pressure Cuff Size BRITTNI POPEDEZ [employer]ER OPERATOR-EMPLOYER RELATIONS REPRESENTATIVE [facility] 02-17-2023 09:02-0400 Blood Pressure Location BRITTNI POPEDEZ [employer] OPERATOR-EMPLOYER RELATIONS REPRESENTATIVE [facility] 02-17-2023 09:02-0400 Blood Pressure Method BRITTNI LU [employer] OPERATOR-EMPLOYER RELATIONS REPRESENTATIVE [facility] 02-17-2023 09:02-0400 Body height 167.6 cm BRITTNI LU [employer] [facility] 02-17-2023 09:02-0400 Body temperature 97.88 [degF] BRITTNI POPEDEZ [employer] [facility] 02-17-2023 09:02-0400 Body weight 50 kg BRITTNI LU [employer] [facility] 02-17-2023 09:[id number] Body weight 17.8 kg/m2 BRITTNI LU [employer] [facility] 02-17-2023 09:02-0400 Heart rate 94 /min BRITTNI POPEDEZ [employer] [facility] 01-06-2023 12:50-0500 Body temperature 98.06 [degF] FLIP MARTIN MD [facility] 01-06-2023 12:50-0500 Diastolic Blood Pressure Non-Invasive 92 1 FLIP MARTIN MD [facility] 01-06-2023 12:50-0500 Heart rate 73 /min FLIP MARTIN MD [facility] 01-06-2023 12:50-0500 Reason For Taking VItal Signs FLIP MARTIN MD [facility] 01-06-2023 12:50-0500 Respiratory rate 16 /min FLIP MARTIN MD [facility] 01-06-2023 12:50-0500 Systolic Blood Pressure Non-Invasive 137 1 FLIP MARTIN MD [facility] 01-06-2023 07:55-0500 Body temperature 98.06 [degF] FLIP MARTIN MD [facility] 01-06-2023 07:55-0500 Diastolic Blood Pressure Non-Invasive 87 1 FLIP MARTIN MD [facility] 01-06-2023 07:55-0500 Heart rate 64 /min FLIP MARTIN MD [facility] 01-06-2023 07:55-0500 Reason For Taking VItal Signs FLIP MARTIN MD [facility] 01-06-2023 07:55-0500 Respiratory rate 16 /min FLIP MARTIN MD [facility] 01-06-2023 07:55-0500 Systolic Blood Pressure Non-Invasive 121 1 FLIP MARTIN MD [facility] 01-06-2023 07:53-0500 Reason For Taking VItal Signs FLIP MARTIN MD [facility] 01-06-2023 04:04-0500 Body temperature 97.88 [degF] FLIP MARTIN MD [facility] 01-06-2023 04:04-0500 Diastolic Blood Pressure Non-Invasive 73 1 FLIP MARTIN MD [facility] 01-06-2023 04:04-0500 Heart rate 68 /min FLIP MARTIN MD [facility] 01-06-2023 04:04-0500 Respiratory rate 16 /min FLIP MARTIN MD [facility] 01-06-2023 04:04-0500 Systolic Blood Pressure Non-Invasive 109 1 FLIP MARTIN MD [facility] 01-05-2023 23:23-0500 Heart rate 80 /min FLIP MARTIN MD [facility] 01-05-2023 04:12-0500 Blood Pressure Cuff Size FLIP MARTIN MD [facility] 01-05-2023 04:12-0500 Blood Pressure Location FLIP MARTIN MD [facility] 01-05-2023 04:12-0500 Blood Pressure Method FLIP MARTIN MD [facility] 01-05-2023 00:07-0500 Blood Pressure Cuff Size FLIP MARTIN MD [facility] 01-05-2023 00:07-0500 Blood Pressure Location FLIP MARTIN MD [facility] 01-05-2023 00:07-0500 Blood Pressure Method FLIP MARTIN MD [facility] 01-04-2023 20:20-0500 Blood Pressure Method FLIP MARTIN MD [facility] 01-02-2023 15:45-0500 Heart rate 97 /min FLIP MARTIN MD [facility] 01-02-2023 15:40-0500 Heart rate 100 /min FLIP MARTIN MD [facility] 01-02-2023 15:35-0500 Heart rate 90 /min FLIP MARTIN MD [facility] 01-01-2023 16:31-0500 Body height 167.6 cm FLIP MARTIN MD [facility] 01-01-2023 16:31-0500 Body weight 47.7 kg FLIP MARTIN MD [facility] 01-01-2023 16:31-0500 Body weight 16.98 kg/m2 FLIP MARTIN MD [facility] 01-01-2023 16:08-0500 Body temperature 97.88 [degF] FLIP MARTIN MD [facility] 01-01-2023 16:08-0500 Diastolic Blood Pressure Non-Invasive 91 1 FLIP MARTIN MD [facility] 01-01-2023 16:08-0500 Heart rate 72 /min FLIP MARTIN MD [facility] 01-01-2023 16:08-0500 Respiratory rate 16 /min FLIP MARTIN MD [facility] 01-01-2023 16:08-0500 Systolic Blood Pressure Non-Invasive 129 1 FLIP MARTIN MD [facility] 01-01-2023 15:22-0500 Diastolic Blood Pressure Non-Invasive 89 1 FLIP MARTIN MD [facility] 01-01-2023 15:22-0500 Heart rate 50 /min FLIP MARTIN MD [facility] 01-01-2023 15:22-0500 Respiratory rate 16 /min FLIP MARTIN MD [facility] 01-01-2023 15:22-0500 Systolic Blood Pressure Non-Invasive 121 1 FLIP MARTIN MD [facility] 01-01-2023 13:37-0500 Body height 167.6 cm FLIP MARTIN MD [facility] 01-01-2023 13:37-0500 Respiratory rate 18 /min FLIP MARTIN MD [facility] 01-01-2023 13:31-0500 Body temperature 97.88 [degF] FLIP MARTIN MD [facility] 01-01-2023 13:31-0500 Diastolic Blood Pressure Non-Invasive 106 1 FLIP MARTIN MD [facility] 01-01-2023 13:31-0500 Heart rate 62 /min FLIP MARTIN MD [facility] 01-01-2023 13:31-0500 Systolic Blood Pressure Non-Invasive 137 1 FLIP MARTIN MD [facility] 11-15-2022 13:45-0500 Diastolic Blood Pressure Non-Invasive 60 1 BRITTNI LU [employer] OPERATOR-EMPLOYER RELATIONS REPRESENTATIVE [facility] 11-15-2022 13:45-0500 Heart rate 63 /min BRITTNI LU [employer] OPERATOR-EMPLOYER RELATIONS REPRESENTATIVE [facility] 11-15-2022 13:45-0500 Respiratory rate 16 /min BRITTNI LU [employer] OPERATOR-EMPLOYER RELATIONS REPRESENTATIVE [facility] 11-15-2022 13:45-0500 Systolic Blood Pressure Non-Invasive 125 1 BRITTNI LU [employer] OPERATOR-EMPLOYER RELATIONS REPRESENTATIVE [facility] 11-15-2022 13:30-0500 Diastolic Blood Pressure Non-Invasive 95 1 BRITTNI LU [employer] OPERATOR-EMPLOYER RELATIONS REPRESENTATIVE [facility] 11-15-2022 13:30-0500 Heart rate 60 /min BRITTNI LU [employer] OPERATOR-EMPLOYER RELATIONS REPRESENTATIVE [facility] 11-15-2022 13:30-0500 Respiratory rate 14 /min BRITTNI LU [employer] OPERATOR-EMPLOYER RELATIONS REPRESENTATIVE [facility] 11-15-2022 13:30-0500 Systolic Blood Pressure Non-Invasive 132 1 BRITTNI LU [employer] OPERATOR-EMPLOYER RELATIONS REPRESENTATIVE [facility] 11-15-2022 13:17-0500 Diastolic Blood Pressure Non-Invasive 84 1 BRITTNI LU [employer] OPERATOR-EMPLOYER RELATIONS REPRESENTATIVE [facility] 11-15-2022 13:17-0500 Heart rate 67 /min BRITTNI LU [employer] OPERATOR-EMPLOYER RELATIONS REPRESENTATIVE [facility] 11-15-2022 13:17-0500 Respiratory rate 14 /min BRITTNI LU BRIM [employer] OPERATOR-EMPLOYER RELATIONS REPRESENTATIVE [facility] 11-15-2022 13:17-0500 Systolic Blood Pressure Non-Invasive 136 1 BRITTNI LU BR[employer] OPERATOR-EMPLOYER RELATIONS REPRESENTATIVE [facility] 11-15-2022 12:35-0500 Heart rate 66 /min BRITTNI LU BRIM [employer]ER OPERATOR-EMPLOYER RELATIONS REPRESENTATIVE [facility] 11-15-2022 12:25-0500 Heart rate 67 /min BRITTNI LU [employer]ER OPERATOR-EMPLOYER RELATIONS REPRESENTATIVE [facility] 11-15-2022 12:20-0500 Heart rate 72 /min BRITTNI LU BRIM [employer] OPERATOR-EMPLOYER RELATIONS REPRESENTATIVE [facility] 11-15-2022 09:52-0500 Blood Pressure Cuff Size BRITTNI LU [employer] OPERATOR-EMPLOYER RELATIONS REPRESENTATIVE [facility] 11-15-2022 09:52-0500 Blood Pressure Location BRITTNI LU BRIM [employer] OPERATOR-EMPLOYER RELATIONS REPRESENTATIVE [facility] 11-15-2022 09:52-0500 Blood Pressure Method BRITTNI LU [employer] OPERATOR-EMPLOYER RELATIONS REPRESENTATIVE [facility] 11-15-2022 09:52-0500 Body height 167.6 cm BRITTNI LU [employer] OPERATOR-EMPLOYER RELATIONS REPRESENTATIVE [facility] 11-15-2022 09:52-0500 Body temperature 98.24 [degF] BRITTNI LU BRIM [employer]ER OPERATOR-EMPLOYER RELATIONS REPRESENTATIVE [facility] 11-15-2022 09:52-0500 Body weight 50 kg BRITTNI LU [employer] OPERATOR-EMPLOYER RELATIONS REPRESENTATIVE [facility] 11-15-2022 09:52-0500 Body weight 17.8 kg/m2 BRITTNI LU BR[employer] OPERATOR-EMPLOYER RELATIONS REPRESENTATIVE [facility] 10-08-2022 14:35-0500 Diastolic Blood Pressure Non-Invasive 83 1 FLIP MARTIN MD [facility] 12-06-2022 14:35-0500 Heart rate 85 /min FLIP MARTIN MD [facility] 10-08-2022 14:35-0500 Reason For Taking VItal Signs FLIP MARTIN MD [facility] 10-08-2022 14:35-0500 Respiratory rate 16 /min FLIP MARTIN MD [facility] 10-08-2022 14:35-0500 Systolic Blood Pressure Non-Invasive 114 1 FLIP MARTIN MD [facility] 10-08-2022 07:30-0500 Body temperature 98.24 [degF] FLIP MARTIN MD [address] [place] [address] 10-08-2022 07:30-0500 Diastolic Blood Pressure Non-Invasive 73 1 FLIP MARTIN MD [address] 10-08-2022 07:30-0500 Heart rate 81 /min FLIP MARTIN MD [facility] 10-08-2022 07:30-0500 Reason For Taking VItal Signs FLIP MARTIN MD [facility] 10-08-2022 07:30-0500 Respiratory rate 14 /min FLIP MARTIN MD [facility] 10-08-2022 07:30-0500 Systolic Blood Pressure Non-Invasive 99 1 FLIP MARTIN MD [facility] 10-07-2022 21:42-0500 Body temperature 98.24 [degF] FLIP MARTIN MD [facility] 10-07-2022 21:42-0500 Diastolic Blood Pressure Non-Invasive 69 1 FLIP MARTIN MD [facility] 10-07-2022 21:42-0500 Heart rate 86 /min FLIP MARTIN MD [facility] 10-07-2022 21:42-0500 Respiratory rate 16 /min FLIP MARTIN MD [facility] 10-07-2022 21:42-0500 Systolic Blood Pressure Non-Invasive 94 1 FLIP MARTIN MD [facility] 10-07-2022 15:38-0500 Body temperature 98.24 [degF] FLIP MARTIN MD [facility] 10-07-2022 15:38-0500 Reason For Taking VItal Signs FLIP MARTIN MD [facility] 10-05-2022 20:19-0500 Heart rate 102 /min FLIP MARTIN MD [facility] 10-05-2022 15:56-0500 Heart rate 74 /min FLIP MARTIN MD [facility] 10-05-2022 12:04-0500 Heart rate 79 /min FLIP MARTIN MD [facility] 10-01-2022 21:35-0500 Heart rate 62 /min FLIP MARTIN MD [facility] 09-30-2022 17:45-0500 Body height 167.6 cm FLIP MARTIN MD [facility] 09-30-2022 17:45-0500 Body weight 50.4 kg FLIP MARTIN MD [facility] 09-30-2022 17:45-0500 Body weight 17.94 kg/m2 FLIP MARTIN MD [facility] 09-30-2022 10:13-0500 Body weight 50.4 kg FLIP MARTIN MD [facility] 09-27-2022 15:45-0500 Body temperature 99.14 [degF] GUCCI ALEXANDRE MD [facility] 09-27-2022 15:45-0500 Body weight 50.2 kg GUCCI ALEXANDRE MD [facility] 09-27-2022 15:45-0500 Diastolic Blood Pressure Non-Invasive 108 1 GUCCI ALEXANDRE MD [facility] 09-27-2022 15:45-0500 Heart rate 122 /min GUCCI ALEXANDRE MD [facility] 09-27-2022 15:45-0500 Systolic Blood Pressure Non-Invasive 126 1 GUCCI ALEXANDRE MD [facility] 08-16-2022 13:01-0400 Body temperature 98.06 [degF] FLIP MARTIN MD [facility] 08-16-2022 13:01-0400 Diastolic blood pressure 75 mm[Hg] FLIP MARTIN MD [facility] 08-16-2022 13:01-0400 Heart rate 107 /min FLIP MARTIN MD [facility] 08-16-2022 13:01-0400 Reason For Taking VItal Signs FLIP MARTIN MD [facility] 08-16-2022 13:01-0400 Respiratory rate 16 /min FLIP MARTIN MD [facility] 08-16-2022 13:01-0400 Systolic blood pressure 102 mm[Hg] FLIP MARTIN MD [facility] 08-16-2022 07:18-0400 Body temperature 97.52 [degF] FLIP MARTIN MD [facility] 08-16-2022 07:18-0400 Diastolic blood pressure 88 mm[Hg] FLIP MARTIN MD [facility] 08-16-2022 07:18-0400 Heart rate 99 /min FLIP MARTIN MD [facility] 08-16-2022 07:18-0400 Reason For Taking VItal Signs FLIP MARTIN MD [facility] 08-16-2022 07:18-0400 Respiratory rate 16 /min FLIP MARTIN MD [facility] 08-16-2022 07:18-0400 Systolic blood pressure 131 mm[Hg] FLIP MARTIN MD [facility] 08-16-2022 04:44-0400 Body temperature 97.7 [degF] FLIP MARTIN MD [facility] 08-16-2022 04:44-0400 Diastolic blood pressure 82 mm[Hg] FLIP MARTIN MD [address] [place] [address] 08-16-2022 04:44-0400 Heart rate 92 /min FLIP MARTIN MD [facility] 08-16-2022 04:44-0400 Respiratory rate 16 /min FLIP MARTIN MD [facility] 08-16-2022 04:44-0400 Systolic blood pressure 108 mm[Hg] FLIP MARTIN MD [facility] 08-15-2022 20:36-0400 Mean blood pressure 94 mm[Hg] FLIP MARTIN MD [facility] 08-15-2022 20:36-0400 Reason For Taking VItal Signs FLIP MARTIN MD [facility] 08-15-2022 08:42-0400 Heart rate 92 /min FLIP MARTIN MD [facility] 08-14-2022 13:15-0400 Heart rate 75 /min FLIP MARTIN MD [facility] 08-14-2022 13:15-0400 Mean blood pressure 104 mm[Hg] FLIP MARTIN MD [facility] 08-14-2022 13:05-0400 Heart rate 80 /min FLIP MARTIN MD [facility] 08-14-2022 13:05-0400 Mean blood pressure 104 mm[Hg] FLIP MARTIN MD [facility] 08-11-2022 03:14-0400 Heart rate 88 /min FLIP MARTIN MD [facility] 08-10-2022 23:33-0400 Heart rate 75 /min FLIP MARTIN MD [facility] 08-08-2022 16:51-0400 Body height 167.6 cm FLIP MARTIN MD [facility] 08-08-2022 16:51-0400 Body weight 52.5 kg FLPI MARTIN MD [facility] 08-08-2022 16:51-0400 Body weight 18.69 kg/m2 FLIP MARTIN MD [facility] 08-08-2022 16:05-0400 Diastolic blood pressure 87 mm[Hg] BRITTNI LU [employer] OPERATOR-EMPLOYER RELATIONS REPRESENTATIVE [facility] 08-08-2022 16:05-0400 Heart rate 65 /min BRITTNI LU [employer] OPERATOR-EMPLOYER RELATIONS REPRESENTATIVE [facility] 08-08-2022 16:05-0400 Respiratory rate 18 /min BRITTNI LU [employer] OPERATOR-EMPLOYER RELATIONS REPRESENTATIVE [facility] 08-08-2022 16:05-0400 Systolic blood pressure 130 mm[Hg] BRITTNI LU [employer] OPERATOR-EMPLOYER RELATIONS REPRESENTATIVE [facility] 08-08-2022 14:27-0400 Body temperature 97.88 [degF] BRITTNI LU [employer] OPERATOR-EMPLOYER RELATIONS REPRESENTATIVE [facility] 08-08-2022 14:27-0400 Reason For Taking VItal Signs BRITTNI LU [employer] OPERATOR-EMPLOYER RELATIONS REPRESENTATIVE [facility] 08-08-2022 13:43-0400 diastolic 87 mm[Hg] BRITTNI LU [employer] OPERATOR-EMPLOYER RELATIONS REPRESENTATIVE [facility] 08-08-2022 13:43-0400 Heart rate 71 /min BRITTNI LU [employer] OPERATOR-EMPLOYER RELATIONS REPRESENTATIVE [facility] 08-08-2022 13:43-0400 Respiratory rate 18 /min BRITTNI LU [employer] OPERATOR-EMPLOYER RELATIONS REPRESENTATIVE [facility] 08-08-2022 13:43-0400 systolic 126 mm[Hg] BRITTNI LU [employer] OPERATOR-EMPLOYER RELATIONS REPRESENTATIVE [facility] 07-04-2022 13:38-0400 Diastolic blood pressure 80 mm[Hg] BRITTNI LU [employer] OPERATOR-EMPLOYER RELATIONS REPRESENTATIVE [facility] 07-04-2022 13:38-0400 Heart rate 77 /min BRITTNI LU [employer] OPERATOR-EMPLOYER RELATIONS REPRESENTATIVE [facility] 07-04-2022 13:38-0400 Mean blood pressure 91 mm[Hg] BRITTNI LU [employer] OPERATOR-EMPLOYER RELATIONS REPRESENTATIVE [facility] 07-04-2022 13:38-0400 Respiratory rate 18 /min BRITTNI LU [employer] OPERATOR-EMPLOYER RELATIONS REPRESENTATIVE [facility] 07-04-2022 13:38-0400 Systolic blood pressure 113 mm[Hg] BRITTNI LU [employer] OPERATOR-EMPLOYER RELATIONS REPRESENTATIVE [facility] 07-04-2022 13:20-0400 Diastolic blood pressure 85 mm[Hg] BRITTNI LU [employer] OPERATOR-EMPLOYER RELATIONS REPRESENTATIVE [facility] 07-04-2022 13:20-0400 Heart rate 74 /min BRITTNI LU [employer] OPERATOR-EMPLOYER RELATIONS REPRESENTATIVE [facility] 07-04-2022 13:20-0400 Mean blood pressure 95 mm[Hg] BRITTNI LU [employer] OPERATOR-EMPLOYER RELATIONS REPRESENTATIVE [facility] 07-04-2022 13:20-0400 Respiratory rate 16 /min BRITTNI POPEDEZ [employer] OPERATOR-EMPLOYER RELATIONS REPRESENTATIVE [facility] 07-04-2022 13:20-0400 Systolic blood pressure 114 mm[Hg] BRITTNI LU [employer] OPERATOR-EMPLOYER RELATIONS REPRESENTATIVE [facility] 07-04-2022 12:58-0400 Diastolic blood pressure 86 mm[Hg] BRITTNI POPEDEZ [employer] OPERATOR-EMPLOYER RELATIONS REPRESENTATIVE [facility] 07-04-2022 12:58-0400 Heart rate 77 /min BRITTNI POPEDEZ [employer] OPERATOR-EMPLOYER RELATIONS REPRESENTATIVE [facility] [facility] 07-04-2022 12:58-0400 Mean blood pressure 99 mm[Hg] BRITTNI POPEDEZ BRIM GREASER OPERATOR-EMPLOYER RELATIONS REPRESENTATIVE [facility] 07-04-2022 12:58-0400 Respiratory rate 16 /min BRITTNI POPEDEZ BRIM GREASER OPERATOR-EMPLOYER RELATIONS REPRESENTATIVE [facility] 07-04-2022 12:58-0400 Systolic blood pressure 124 mm[Hg] BRITTNI POPEDEZ BRIM GREASER OPERATOR-EMPLOYER RELATIONS REPRESENTATIVE [facility] 07-04-2022 10:37-0400 Body height 167.6 cm BRITTNI POPEDEZ BRIM GREASER OPERATOR-EMPLOYER RELATIONS REPRESENTATIVE [facility] 07-04-2022 10:37-0400 Body temperature 98.06 [degF] BRITTNI LU BRIM GREASER OPERATOR-EMPLOYER RELATIONS REPRESENTATIVE [facility] 07-04-2022 10:37-0400 Body weight 45.4 kg BRITTNI POPEDEZ BRIM GREASER OPERATOR-EMPLOYER RELATIONS REPRESENTATIVE [facility] 07-04-2022 10:37-0400 Body weight 16.16 kg/m2 BRITTNI LU BRIM GREASER OPERATOR-EMPLOYER RELATIONS REPRESENTATIVE [facility] 07-04-2022 10:37-0400 diastolic 87 mm[Hg] BRITTNI PRATHERZ BRIM GREASER OPERATOR-EMPLOYER RELATIONS REPRESENTATIVE [facility] 07-04-2022 10:37-0400 Heart rate 88 /min BRITTNIRA LU BRIM GREASER OPERATOR-EMPLOYER RELATIONS REPRESENTATIVE [facility] 07-04-2022 10:37-0400 systolic 123 mm[Hg] BRITTNI LU BRIM GREASER OPERATOR-EMPLOYER RELATIONS REPRESENTATIVE [facility] 04-19-2022 16:12-0400 Body temperature 98.42 [degF] FLIP MARTIN MD [facility] 04-19-2022 16:12-0400 Diastolic blood pressure 88 mm[Hg] FLIP MARTIN MD [facility] 04-19-2022 16:12-0400 Heart rate 72 /min FLIP MARTIN MD [facility] 04-19-2022 16:12-0400 Reason For Taking VItal Signs FLIP MARTIN MD [facility] 04-19-2022 16:12-0400 Respiratory rate 16 /min FLIP MARTIN MD [facility] 04-19-2022 16:12-0400 Systolic blood pressure 125 mm[Hg] FLIP MARTIN MD [facility] 04-19-2022 12:04-0400 Body temperature 98.6 [degF] FLIP MARTIN MD [facility] 04-19-2022 12:04-0400 Diastolic blood pressure 100 mm[Hg] FLIP MARTIN MD [facility] 04-19-2022 12:04-0400 Heart rate 82 /min FLIP MARTIN MD [facility] 04-19-2022 12:04-0400 Reason For Taking VItal Signs FLIP MARTIN MD [facility] 04-19-2022 12:04-0400 Respiratory rate 16 /min FLIP MARTIN MD [facility] 04-19-2022 12:04-0400 Systolic blood pressure 133 mm[Hg] FLIP MARTIN MD [facility] 04-19-2022 08:19-0400 Body temperature 97.7 [degF] FLIP MARTIN MD [facility] 04-19-2022 08:19-0400 Diastolic blood pressure 87 mm[Hg] FLIP MARTIN MD [facility] 04-19-2022 08:19-0400 Heart rate 78 /min FLIP MARTIN MD [facility] 04-19-2022 08:19-0400 Reason For Taking VItal Signs FLIP MARTIN MD [facility] 04-19-2022 08:19-0400 Respiratory rate 16 /min FLIP MARTIN MD [facility] 04-19-2022 08:19-0400 Systolic blood pressure 123 mm[Hg] FLIP MARTIN MD [facility] 04-17-2022 13:37-0400 Mean blood pressure 109 mm[Hg] FLIP MARTIN MD [facility] 04-17-2022 08:19-0400 Mean blood pressure 88 mm[Hg] FLIP MARTIN MD [facility] 04-15-2022 21:40-0400 Mean blood pressure 106 mm[Hg] FLIP MARTIN MD [facility] 04-14-2022 22:09-0400 Body height 167.6 cm FLIP MARTIN MD [facility] 04-14-2022 22:09-0400 Body weight 45.4 kg FLIP MARTIN MD [facility] 04-14-2022 22:09-0400 Body weight 16.16 kg/m2 FLIP MARTIN MD [facility] 04-11-2022 15:18-0400 Diastolic blood pressure 96 mm[Hg] BRITTNI PRATHERZ BRIM GREASER OPERATOR-EMPLOYER RELATIONS REPRESENTATIVE [facility] 04-11-2022 15:18-0400 Heart rate 72 /min BRITTNI LU BRIM GREASER OPERATOR-EMPLOYER RELATIONS REPRESENTATIVE [facility] 04-11-2022 15:18-0400 Respiratory rate 16 /min BRITTNI LU [employer]IM GREASER OPERATOR-EMPLOYER RELATIONS REPRESENTATIVE [facility] 04-11-2022 15:18-0400 Systolic blood pressure 144 mm[Hg] BRITTNI LU BRIM GREASER OPERATOR-EMPLOYER RELATIONS REPRESENTATIVE [facility] 04-11-2022 14:45-0400 Diastolic Blood Pressure NBP 87 1 BRITTNI LU BRIM GREASER OPERATOR-EMPLOYER RELATIONS REPRESENTATIVE [facility] 04-11-2022 14:45-0400 Heart rate 69 /min BRITTNI POPEDEZ BRIM GREASER OPERATOR-EMPLOYER RELATIONS REPRESENTATIVE [facility] 04-11-2022 14:45-0400 Respiratory rate 14 /min BRITTNI POPEDEZ BRIM GREASER OPERATOR-EMPLOYER RELATIONS REPRESENTATIVE [facility] 04-11-2022 14:45-0400 Systolic Blood Pressure NBP 130 1 BRITTNI POPEDEZ BRIM GREASER OPERATOR-EMPLOYER RELATIONS REPRESENTATIVE [facility] 04-11-2022 14:30-0400 Diastolic Blood Pressure NBP 93 1 BRITTNI LU BRIM GREASER OPERATOR-EMPLOYER RELATIONS REPRESENTATIVE [facility] 04-11-2022 14:30-0400 Heart rate 70 /min BRITTNI POPEDEZ BRIM GREASER OPERATOR-EMPLOYER RELATIONS REPRESENTATIVE [facility] 04-11-2022 14:30-0400 Respiratory rate 14 /min BRITTNI POPEDEZ BRIM GREASER OPERATOR-EMPLOYER RELATIONS REPRESENTATIVE [facility] 04-11-2022 14:30-0400 Systolic Blood Pressure NBP 126 1 BRITTNI POPEDEZ BRIM GREASER OPERATOR-EMPLOYER RELATIONS REPRESENTATIVE [facility] 04-11-2022 14:15-0400 Diastolic blood pressure 97 mm[Hg] BRITTNI POPEDEZ BRIM GREASER OPERATOR-EMPLOYER RELATIONS REPRESENTATIVE [facility] 04-11-2022 14:15-0400 Heart rate 77 /min BRITTNI LU BRIM GREASER OPERATOR-EMPLOYER RELATIONS REPRESENTATIVE [facility] 04-11-2022 14:15-0400 Mean blood pressure 112 mm[Hg] BRITTNI LU BRIM GREASER OPERATOR-EMPLOYER RELATIONS REPRESENTATIVE [facility] 04-11-2022 14:15-0400 Systolic blood pressure 142 mm[Hg] BRITTNI LU BRIM GREASER OPERATOR-EMPLOYER RELATIONS REPRESENTATIVE [facility] 04-11-2022 14:10-0400 Diastolic blood pressure 111 mm[Hg] BRITTNI LU BRIM GREASER OPERATOR-EMPLOYER RELATIONS REPRESENTATIVE [facility] 04-11-2022 14:10-0400 Heart rate 76 /min BRITTNI POPEDEZ BRIM GREASER OPERATOR-EMPLOYER RELATIONS REPRESENTATIVE [facility] 04-11-2022 14:10-0400 Mean blood pressure 124 mm[Hg] BRITTNI POPEDEZ BRIM GREASER OPERATOR-EMPLOYER RELATIONS REPRESENTATIVE [facility] 04-11-2022 14:10-0400 Systolic blood pressure 150 mm[Hg] BRITTNI POPEDEZ BRIM GREASER OPERATOR-EMPLOYER RELATIONS REPRESENTATIVE [facility] 04-11-2022 14:05-0400 Heart rate 85 /min BRITTNI POPEDEZ BRIM GREASER OPERATOR-EMPLOYER RELATIONS REPRESENTATIVE [facility] 04-11-2022 14:05-0400 Mean blood pressure 96 mm[Hg] BRITTNI POPEDEZ BRIM GREASER OPERATOR-EMPLOYER RELATIONS REPRESENTATIVE [facility] 04-11-2022 13:05-0400 Body temperature 97.88 [degF] BRITTNI LU BRIM GREASER OPERATOR-EMPLOYER RELATIONS REPRESENTATIVE [facility] 03-26-2022 11:47-0400 Body height 167.6 cm ERI PATRICK BRIM GREASER OPERATOR-EMPLOYER RELATIONS REPRESENTATIVE [facility] 03-26-2022 11:47-0400 Body temperature 98.06 [degF] ERI PATRICK BRIM GREASER OPERATOR-EMPLOYER RELATIONS REPRESENTATIVE [facility] 03-26-2022 11:47-0400 Body weight 45.4 kg ERI PATRICK BRIM GREASER OPERATOR-EMPLOYER RELATIONS REPRESENTATIVE [facility] 03-26-2022 11:47-0400 Body weight 16.16 kg/m2 ERI PATRICK BRIM GREASER OPERATOR-EMPLOYER RELATIONS REPRESENTATIVE [facility] 03-26-2022 11:47-0400 diastolic 88 mm[Hg] ERI PATRICK BRIM GREASER OPERATOR-EMPLOYER RELATIONS REPRESENTATIVE [facility] 03-26-2022 11:47-0400 Heart rate 76 /min ERI PATRICK BRIM GREASER OPERATOR-EMPLOYER RELATIONS REPRESENTATIVE [facility] 03-26-2022 11:47-0400 Respiratory rate 18 /min ERI PATRICK BRIM GREASER OPERATOR-EMPLOYER RELATIONS REPRESENTATIVE [facility] 03-26-2022 11:47-0400 systolic 132 mm[Hg] ERI PATRICK BRIM GREASER OPERATOR-EMPLOYER RELATIONS REPRESENTATIVE [facility] 12-21-2021 10:38-0500 Body height 167.6 cm FLIP MARTIN MD [facility] 12-21-2021 10:38-0500 Body temperature 98.06 [degF] FLIP MARTIN MD [facility] 12-21-2021 10:38-0500 Body weight 47.7 kg FLIP MARTIN MD [facility] 12-21-2021 10:38-0500 Body weight 16.98 kg/m2 FLIP MARTIN MD [facility] 12-21-2021 10:38-0500 diastolic 101 mm[Hg] FLIP MARTIN MD [facility] 12-21-2021 10:38-0500 Heart rate 81 /min FLIP MARTIN MD [facility] 12-21-2021 10:38-0500 Respiratory rate 16 /min FLIP MARTIN MD [facility] 12-21-2021 10:38-0500 systolic 129 mm[Hg] FLIP MARTIN MD [facility] 07-14-2021 10:43-0400 Body temperature 98.42 [degF] Flip Martin [facility] 07-14-2021 10:43-0400 Diastolic blood pressure 83 mm[Hg] Flip Martin [facility] 07-14-2021 10:43-0400 Heart rate 68 /min Flip Martin [facility] 07-14-2021 10:43-0400 Respiratory rate 18 /min Flip Martin [facility] 07-14-2021 10:43-0400 SaO2% (BldA) [Mass fraction] 100 % Flip Martin [facility] 07-14-2021 10:43-0400 Systolic blood pressure 129 mm[Hg] Flip Martin [facility] 07-14-2021 07:44-0400 Body weight 47.7 kg Flip Martin [facility] Encounters Encounter Date Encounter Type Care Provider Facility Start: 06-05-2025 End: 06-05-2025 Emergency department patient visit OBED WINTER [facility] Start: 06-04-2025 End: 06-05-2025 Emergency department patient visit Dr. Jatin Garcia MD Work Phone: -Emergency Department Work Phone: Start: 06-03-2025 End: 06-04-2025 Emergency department patient visit Dr. Jatin Garcia MD Work Phone: -Emergency Department Work Phone: Start: 06-01-2025 End: 06-02-2025 Emergency department patient visit Dr. Jatin Garcia MD Work Phone: -Emergency Department Work Phone: Start: 06-01-2025 End: 06-01-2025 Emergency department patient visit GONZALEZ [facility] Start: 05-27-2025 End: 05-30-2025 Evaluation and management of inpatient DR OLI HERRERA MD [facility] Start: 05-26-2025 End: 05-26-2025 Emergency department patient visit GONZALEZ GUDINO [facility] Start: 05-25-2025 End: 05-26-2025 Emergency department patient visit DR ARLEY MARIE DO [facility] Start: 05-17-2025 End: 05-17-2025 Telephone encounter Ben Fonseca MD Work Phone: [facility] Start: 05-11-2025 ambulatory PINA PANTOJA BRIM GREASER OPERATOR-[facility] Facility:A Start: 05-11-2025 End: 05-11-2025 ambulatory OLE PACE MD Facility:A Start: 05-08-2025 End: 05-09-2025 Emergency department patient visit JASKARAN MEDRANO MD [employer] [facility] Start: 05-04-2025 End: 05-07-2025 Emergency department patient visit OLE PACE MD Facility:A Start: 05-04-2025 End: 05-07-[address] RHIANNON ARTEAGA MD [employer] [facility] Start: 05-03-2025 End: 05-03-2025 Emergency department patient visit [facility] Start: 05-03-2025 End: 05-03-2025 Emergency department patient visit GUCCI ALEXANDRE MD [employer] [facility] Start: 05-02-2025 End: 05-03-2025 Emergency department patient visit GABBY ELENA [facility] Start: 04-29-2025 End: 04-29-2025 Emergency department patient visit [facility] Start: 04-11-2025 End: 04-11-2025 ambulatory OLE PACE MD Facility:A Start: 04-11-2025 End: 04-11-2025 Patient encounter procedure LEONARDO OMER [employer] [employer] [facility] Start: 04-09-2025 End: 04-09-2025 Emergency department patient visit Dr. Jatin Garcia MD Work Phone: -Emergency Department Work Phone: Start: 04-06-2025 End: 04-07-2025 Emergency department patient visit GONZALEZ SANDERS MD Facility:A Start: 04-06-2025 End: 04-07-2025 Observation BHUPENDRA GALVEZ DO [employer] [facility] Start: 04-05-2025 ambulatory PINA PANTOJA BRIM GREASER OPERATOR-EMPLOYER RELATIONS REPRESENTATIVE Facility:A Start: 04-04-2025 End: 04-05-2025 Emergency department patient visit DR RHIANNON ARTEAGA MD Facility:A Start: 04-04-2025 End: 04-05-[address] [facility]ANNON [facility]A [facility] Start: 04-04-2025 ambulatory GONZALEZ SANDERS MD Facilit y:A Start: 04-03-2025 End: 04-03-2025 Emergency department patient visit CHRISTO GUDINO [facility] Start: 04-01-2025 End: 04-01-2025 Emergency department patient visit GONZALEZ GUDINO [facility] Start: 03-30-2025 End: 03-30-2025 ambulatory GONZALEZ SANDERS MD Facility:A Start: 03-30-2025 End: 03-30-2025 Patient encounter procedure GONZALEZ SANDERS MD [facility] Start: 03-25-[address] MADELINE APARICIO MD Facil ity:A Start: 03-23-2025 End: 03-23-2025 Emergency department patient visit GUCCI [facility] Start: 03-15-2025 End: 03-15-2025 Emergency department patient visit GUCCI ALEXANDRE MD [facility] Start: 03-09-2025 End: 03-09-2025 Emergency department patient visit DELMAR IMCHAEL DO [facility] Start: 03-08-2025 End: 03-08-2025 Emergency department patient visit GUCCI [facility] Start: 03-08-2025 End: 03-08-2025 ambulatory GONZALEZ SANDERS MD Facility:A Start: 03-08-2025 End: 03-08-2025 Patient encounter procedure GONZALEZ SANDERS MD [facility] Start: 03-07-2025 End: 03-07-2025 Emergency department patient visit ALICIA LORA [facility] Start: 03-05-2025 End: 03-06-2025 Emergency department patient visit GONZALEZ GUDINO [facility] Start: 02-16-2025 End: 02-16-2025 ambulatory OLE MONK MD Facility:A Start: 02-16-2025 End: 02-16-2025 SAME DAY STAY PINA PANTOJA BRIM GREASER OPERATOR-EMPLOYER RELATIONS REPRESENTATIVE [facility] Start: 02-14-2025 End: 02-14-2025 ambulatory OLE PACE MD Facility:A Start: 02-10-2025 End: 02-10-2025 Emergency department patient visit [facility] Start: 02-01-2025 ambulatory OLE PACE MD Faci lity:A Start: 01-29-2025 End: 01-29-2025 Emergency department patient visit GONZALEZ GUDINO [facility] Start: 01-21-2025 End: 01-21-2025 Emergency department patient visit BEATRICE GUDINO BERNARDO [facility] Start: 12-22-2024 ambulatory OLE PACE MD Faci lity:A Start: 12-22-2024 End: 12-22-2024 ambulatory OLE PACE MD Facility:A Start: 12-22-2024 End: 12-22-2024 SAME DAY STAY NASRIN ISABEL MD [facility] Start: 12-13-2024 End: 12-13-2024 ambulatory OLE PACE MD Facility:A Start: 12-10-2024 End: 12-10-2024 Emergency department patient visit GONZALEZ [facility] Start: 11-15-2024 End: 11-19-2024 ambulatory NASRIN ISABEL MD Facility:A Start: 11-15-2024 End: 01-13-2025 ambulatory NASRIN ISABEL MD Facility:A Start: 11-06-2024 End: 11-06-2024 Emergency department patient visit KORINA AGUILAR [facility] Start: 10-13-2024 End: 10-13-2024 ambulatory VON BACA MD Facility:A Start: 10-01-2024 ambulatory TADEO LEIJA PA-C Fa cility:A Start: 09-28-2024 End: 09-28-2024 ambulatory OLE PACE MD Facility:A Start: 08-31-2024 End: 08-31-2024 Emergency department patient visit ALICIA LORA [facility] Start: 08-16-2024 End: 08-16-2024 ambulatory OLE PACE MD Facility:A Start: 08-11-2024 End: 08-11-2024 ambulatory NAYELI BRICE DO Facility:A Start: 08-11-2024 End: 08-11-2024 SAME DAY STAY NASRIN ISABEL MD [facility] Start: 08-06-2024 End: 08-06-2024 Admission to establishment NASRIN ISABEL MD [facility] Start: 08-06-2024 End: 08-06-2024 ambulatory OLE PACE MD Facility:A Start: 07-19-2024 End: 07-19-2024 ambulatory OLE PACE MD Facility:A Start: 07-10-2024 ambulatory FLIP LORA [facility] Start: 07-10-2024 End: 07-10-2024 Emergency department patient visit [facility] Start: 06-24-2024 End: 06-24-2024 Emergency department patient visit [facility] Start: 06-21-2024 End: 06-21-2024 ambulatory PROVIDER NOT SPECIFIED OTHER Facility:A Start: 06-10-2024 ambulatory PROVIDER NOT SPECIFIED OTHER Facility:A Start: 06-10-2024 ambulatory PROVIDER NOT SPECIFIED OTHER Facility:A Start: 06-09-2024 End: 06-09-2024 ambulatory VIRAL MANUEL MD Facility:A Start: 06-09-2024 End: 06-09-2024 SAME DAY STAY NSARIN ISABEL MD [employer] Start: 05-25-2024 ambulatory PROVIDER NOT SPECIFIED OTHER Facility:A Start: 05-24-2024 End: 05-24-2024 ambulatory PROVIDER NOT SPECIFIED OTHER Facility:A Start: 04-28-2024 End: 04-28-2024 ambulatory PROVIDER NOT SPECIFIED OTHER Facility:A Start: 04-14-2024 End: 04-14-2024 ambulatory DAVID SMITH MD Facility:A Start: 04-14-2024 End: 04-14-2024 SAME DAY STAY OLE PACE MD [employer] [facility] Start: 03-04-2024 End: 03-04-2024 Patient encounter procedure OLE PACE MD [employer] [facility] Start: 03-03-2024 End: 03-04-2024 ambulatory PROVIDER NOT SPECIFIED OTHER Facility:A Start: 03-03-2024 End: 03-03-2024 SAME DAY STAY OLE PACE MD [employer] [facility] Start: 02-04-2024 End: 02-04-2024 ambulatory NONE PHYSICIAN Facility:A Start: 01-21-2024 End: 01-21-2024 ambulatory HILDA HADDAD MD Facility:A Start: 01-21-2024 End: 01-21-2024 SAME DAY STAY OLE PACE MD [employer] [facility] Start: 01-13-2024 ambulatory NONE PHYSICIAN Facility :A Start: 01-06-2024 End: 01-06-2024 ambulatory NONE PHYSICIAN Facility:A Start: 01-06-2024 End: 01-06-2024 Patient encounter procedure OLE PACE MD [facility] Start: 12-17-2023 ambulatory NONE PHYSICIAN Facility :A Start: 12-08-2023 End: 12-08-2023 ambulatory NONE PHYSICIAN Facility:A Start: 12-08-2023 End: 12-08-2023 Patient encounter procedure OLE PACE MD [facility] Start: 12-08-2023 End: 12-08-2023 ambulatory NONE PHYSICIAN Facility:A Start: 12-03-2023 End: 12-03-2023 ambulatory RITA YEH MD Facility:A Start: 12-03-2023 End: 12-03-2023 SAME DAY STAY BRITTNI LU BRIM GREASER OPERATOR-EMPLOYER RELATIONS REPRESENTATIVE [facility] Start: 11-19-2023 End: 11-19-2023 ambulatory NONE PHYSICIAN Facility:A Start: 11-19-2023 End: 11-19-2023 Patient encounter procedure OLE PACE MD [facility] Start: 10-22-2023 End: 10-22-2023 ambulatory VIRAL MASON MD, Ph.D Facility:A Start: 10-22-2023 End: 10-22-2023 SAME DAY STAY BRITTNI LU BRIM GREASER OPERATOR-EMPLOYER RELATIONS REPRESENTATIVE [facility] Start: 09-12-2023 End: 09-12-2023 ambulatory FLIP MARTIN MD Facility:A Start: 09-12-2023 End: 09-12-2023 Patient encounter procedure OLE PACE MD [facility] Start: 08-28-2023 End: 08-28-2023 ambulatory FLIP MARTIN MD Facility:A Start: 08-25-2023 ambulatory FLIP MARTIN MD Facili ty:A Start: 08-21-2023 End: 08-21-2023 ambulatory FLIP MARTIN MD Facility:A Start: 08-21-2023 End: 08-21-2023 Patient encounter procedure OLE PACE MD [facility] Start: 07-30-2023 End: 08-03-2023 ambulatory FLIP MARTIN MD Facility:A Start: 07-30-2023 End: 07-30-2023 ambulatory FLIP MARTIN MD Facility:A Start: 07-30-2023 End: 07-30-2023 Patient encounter procedure FLIP MARTIN MD [facility] Start: 07-24-2023 End: 07-24-2023 ambulatory MARIN COTE MD Facility:A Start: 07-24-2023 End: 07-24-2023 SAME DAY STAY FLIP MARTIN MD [facility] Start: 07-18-2023 ambulatory FLIP MARTIN MD Facili ty:A Start: 07-08-2023 End: 07-16-2023 Evaluation and management of inpatient FLIP MARTIN MD [facility] Start: 07-08-2023 ambulatory FLIP MARTIN MD Facili ty:A Start: 06-26-2023 End: 06-26-2023 ambulatory FLIP MARTIN MD Facility:A Start: 06-26-2023 End: 06-26-2023 Patient encounter procedure FLIP MARTIN MD [facility] Start: 05-15-2023 End: 05-15-2023 Patient encounter procedure FLIP MARTIN MD [facility] Start: 04-27-2023 End: 05-07-2023 Evaluation and management of inpatient FLIP MARTIN MD [facility] Start: 02-23-2023 End: 03-05-2023 Evaluation and management of inpatient FLIP MARTIN MD [facility] Start: 02-17-2023 End: 02-17-2023 Patient encounter procedure BRITTNI LU BRIM [employer]ASER OPERATOR-EMPLOYER RELATIONS REPRESENTATIVE [facility] Start: 01-01-2023 End: 01-06-2023 Evaluation and management of inpatient FLIP MARTIN MD [facility] Start: 01-01-2023 End: 01-01-2023 Patient encounter procedure FLIP MARTIN MD [facility] Start: 01-01-2023 End: 01-01-2023 Patient encounter procedure FLIP MARTIN MD [facility] Start: 11-15-2022 End: 11-15-2022 Patient encounter procedure BRITTNI LU [employer] [facility] Start: 09-30-2022 End: 10-08-2022 Evaluation and management of inpatient FLIP MARTIN MD [facility] Start: 09-27-2022 End: 09-27-2022 Emergency department patient visit GUCCI ALEXANDRE MD [facility] Start: 08-08-2022 End: 08-16-2022 Evaluation and management of inpatient FLIP MARTIN MD [facility] Start: 08-08-2022 End: 08-08-2022 Patient encounter procedure BRITTNI LU [employer] OPERATOR-EMPLOYER RELATIONS REPRESENTATIVE [facility] Start: 07-04-2022 End: 07-04-2022 Patient encounter procedure BRITTNI LU BRIM GREASER OPERATOR-EMPLOYER RELATIONS REPRESENTATIVE [facility] Start: 04-14-2022 End: 04-19-2022 Evaluation and management of inpatient FLIP MARTIN MD [facility] Start: 04-11-2022 End: 04-11-2022 Patient encounter procedure BRITTNIRA LU BRIM GREASER OPERATOR-EMPLOYER RELATIONS REPRESENTATIVE [facility] Start: 03-26-2022 End: 03-26-2022 Patient encounter procedure ERI PATRICK BRIM GREASER OPERATOR-EMPLOYER RELATIONS REPRESENTATIVE [facility] Start: 02-21-2022 End: 02-21-2022 Patient encounter procedure FLIP MARTIN MD [facility] Start: 12-21-2021 End: 12-21-2021 Patient encounter procedure FLIP MARTIN MD [facility] Start: 08-23-2021 End: 08-23-2021 Patient encounter procedure FLIP MARTIN MD [facility] Start: 07-11-2021 End: 07-14-2021 Evaluation and management of inpatient Shira Teran [facility] Garcia [id number] Procedures Date Procedure Procedure Detail Performing Clinician Start: 06-05-2025 Urinalysis GONZALEZ Jiménez Comment on above: Result Comment: CORRECTED REPORTURINALYSIS Performed By: #### [id number] ####[facility],[address] [place] [address] Start: 06-05-[address] Jatin Garcia MD Work Phone: Start: 06-04-2025 Urnls dip stick/tabl et reagent [...] Comment: URIN ALYSIS Performed By: #### [id number] ####[facility],[address] [place] [address] Start: 05-05-2025 Exchange nephrostomy catheter prq w/img gid rs&i DR ARLEY MARIE DO Start: 05-03-2025 End: 05-03-2025 Urinalysis GONZALEZ CARTER Comment on above: Result Comment: URIN ALYSIS Performed By: #### [id number] ####[facility],[address] [place] [address] Start: 04-09-2025 Urnls dip stick/tabl et reagent auto microscopy Dr. Jatin Garcia MD Work Phone: Start: 04-09-[address] Jatin Garcia MD Work Phone: Start: 04-03-2025 Urinalysis GONZALEZ URBANO R Comment on above: Result Comment: URIN ALYSIS Performed By: #### [id number] ####[facility],[address] [place] [address] Start: 04-01-2025 Urinalysis GONZALEZ URBANO R Comment on above: Result Comment: URIN ALYSIS Performed By: #### [id number] ####[facility],[address] [place] [address] Start: 03-23-2025 Urinalysis GONZALEZ URBANO R Comment on above: Result Comment: URIN ALYSIS Performed By: #### [id number] ####[facility],[address] [place] [address] Start: 03-05-2025 Urinalysis GONZALEZ URBANO R Comment on above: Result Comment: URIN ALYSIS Performed By: #### [id number] ####[facility],[address] [place] [address] Start: 02-16-2025 Exchange nephrostomy catheter prq w/img gid rs&i GONZALEZ SANDERS MD Start: 02-10-2025 Urinalysis GONZALEZ URBANO R Comment on above: Result Comment: URIN ALYSIS Performed By: #### 2 [id number] ####[facility],[address] [place] [address] Start: 02-10-2025 Urinalysis GONZALEZ URBANO R Comment on above: Result Comment: URIN ALYSIS Performed By: #### 2 [id number] ####[facility],[address] [place] [address] Start: 01-29-2025 Urinalysis GONZALEZ URBANO R Comment on above: Result Comment: URIN ALYSIS Performed By: #### [id number] ####[facility],[address] [place] [address] Start: 12-22-2024 Exchange nephrostomy catheter prq w/img gid rs&i GONZALEZ SANDERS MD Start: 12-22-2024 Removal of implantab le venous access port GONZALEZ SANDERS MD Start: 12-10-2024 Urinalysis GONZALEZ Jiménez Comment on above: Result Comment: URIN ALYSIS Performed By: #### [id number] ####[facility],[address] [place] [address] Start: 11-06-2024 End: 11-06-2024 Urinalysis GONZALEZ CARTER Comment on above: Result Comment: URIN ALYSIS Performed By: #### 2 [id number] ####[facility],[address] [place] [address] Start: 10-13-2024 Exchange nephrostomy catheter prq w/img gid jennifer&i GONZALEZ SANDERS MD Start: 07-10-2024 Urinalysis GONZALEZ Jiménez Comment on above: Result Comment: URIN ALYSIS Performed By: #### 2 [id number] ####[facility],[address] [place] [address] Start: 06-16-2024 JJ-stent (physical object) NSARIN ISABEL MD Comment on above: left Start: [...] a cervical biopsy done on 04/07/2020 at [facility] for a cervical mass Start: 11-03-2001 Tumor cells, benign (morphologic abnormality) FLIP MARTIN MD Comment on above: 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 done at [facility] in [place] Cannulation of subcutaneous reservoir FLIP MARTIN MD [...] for Adults (1 - 1-dose 75+ series) [facility] Start: 2038 Zoster Vaccines (1 of 2) Zoster Vaccines (1 of 2) [facility] Start: 07-04-2025 Influenza vaccination Influenza Vaccine (#1) [facility] Start: 06-05-2025 [facility] Start: 06-04-2025 Bacteria identified in Urine by Culture Urine Culture [facility] Start: 06-04-2025 [facility] Start: 06-04-2025 [facility] Start: 06-02-2025 Bacteria identified in Urine by Culture Urine Culture [facility] Start: 06-02-2025 Urine culture Urine Culture [facility] Start: 06-02-2025 [facility] Start: 05-26-2025 End: 05-26-2025 Patient encounter procedure 05/26/2025 2:00 PM EDT Office Visit [facility] [address] [place] [id number] Ben Fonseca MD [address] [place] [address] [facility] Start: 04-09-2025 [facility] Start: 07-04-2024 COVID-19 Vaccine ( season) COVID-19 Vaccine ( season) [facility] Start: 08-09-2021 Patient encounter procedure [facility] Dorydbjudith Start: 07-14-2021 End: 07-15-2022 Pneumococcal 13-Valent (PREVNAR 13) Vaccine 0.5 mL IntraMuscular Once ; DOSE = 0.5 mL IntraMuscular Once Start: 14-Jul-2021 End: 14-Jul-2022 Ordered: 13-Jul-2021 Alycia Pritchett [facility] Start: 2018 Screening for malignant neoplasm of cervix [facility] Start: 2009 Screening for malignant neoplasm of cervix Pap Smear [facility] Start: 2007 DTaP/Tdap/Td Vaccines (1 - Tdap) DTaP/Tdap/Td Vaccines (1 - Tdap) [facility] Start: 2007 Hepatitis B Vaccines (1 of 3 - 19+ 3-dose series) Hepatitis B Vaccines (1 of 3 - 19+ 3-dose series) [facility] Start: 2006 Hepatitis C screening Hepatitis C Screening [facility] Start: 2001 Varicella vaccination Varicella Vaccines (1 of 2 - 13+ 2-dose series) [facility] Start: 2000 Depression Screening Depression Screening [facility] Start: 1989 MMR Vaccines (1 of 1 - Standard series) MMR Vaccines (1 of 1 - Standard series) [facility] Start: 1988 HIV screening HIV Screening [facility] Patient Education [facility] Work Phone: Patient referral [facility] Work Phone: 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 [facility] Urine culture [facility] Urine culture [facility] Immunizations Immunization Date Immunization Notes Care Provider Fa cility 06-16-2001 hepatitis B pediatri c vaccine BRITTNI LU BRIM GREASER OPERATOR-EMPLOYER RELATIONS REPRESENTATIVE [facility] 06-16-2001 measles/mumps/rubell a virus vaccine [facility] BRIM GREASER OPERATOR-EMPLOYER RELATIONS REPRESENTATIVE [facility] 06-21-1998 hepatitis B pediatri c vaccine BRITTNI LU BRIM GREASER OPERATOR-EMPLOYER RELATIONS REPRESENTATIVE [facility] 04-06-1990 measles/mumps/rubell a virus [facility]AS[facility] OPERATOR-EMPLOYER RELATIONS REPRESENTATIVE [facility] Payers Date Payer Category Payer Medicare [id number] 2024 Self-pay 2024 Medicare [id number] 2023 Private Health Insurance [id number] 2022 Medicaid [id number] 2022 Private Health Insurance [id number] 1988 Unknown [id number] 2.840.1.808918.3.579.2. 627 1988 Unknown [id number] 2.840.1.376142.3.579.2. 627 1988 Unknown [id number] 2.840.1.745183.3.579.2. 627 1988 Unknown [id number] 2.840.1.284845.3.579.2. 1988 Unknown [id number] 2.16840.1.054522.3.579.2 1988 Unknown [id number] 2.16840.1.287536.3.579.2 1988 Unknown [id number] 2.840.1.142866.3.579.2 1988 Unknown [id number] 2.840.1.540018.3.579.2. 1988 Unknown [id number] 2.840.1.788749.3.579.2 1988 Unknown [id number] 2.840.1.277550.3.579.2 1988 Unknown [id number] 2.0.1.302055.3.579.2 1988 Unknown [id number] 2.840.1.951330.3.579.2 1988 Unknown [id number] 2.840.1.024111.3.579.2 1988 Unknown [id number] 2.840.1.122930.3.579.2 1988 Unknown [id number] 2.840.1.369298.3.579.2. 1988 Unknown [id number] 2.840.1.160306.3.579.2 1988 Unknown [id number] 2.840.1.921293.3.579.2 1988 Unknown [id number] 2.840.1.502139.3.579.2. 1988 Unknown [id number] 2.840.1.403902.3.579.2 1988 Unknown [id number] 2.840.1.960932.3.579.2. 1988 Unknown [id number] 2.840.1.624795.3.579.2 1988 Unknown [id number] 2.16840.1.636876.3.579.2 1988 Unknown [id number] 2.840.1.047450.3.579.2 1988 Unknown [id number] 2.840.1.421233.3.579.2 1988 Unknown [id number] 840.1.033319.3.579.2 1988 Unknown [id number] 2840.1.639345.3.579.2 1988 Unknown [id number] 2.840.1.227022.3.579.2 1988 Unknown [id number] 840.1.670602.3.579.2 1988 Unknown [id number] 840.1.001319.3.579.2 1988 Unknown [id number] 2840.1.168633.3.579.2 1988 Unknown [id number] 2840.1.429677.3.579.2 1988 Unknown [id number] 2840.1.937348.3.579.2. 1988 Unknown [id number] 840.1.829792.3.579.2 1988 Unknown [id number] 2.840.1.595646.3.579.2 1988 Unknown [id number] 2840.1.484638.3.579.2. 62 1988 Unknown [id number] 2.16840.1.861085.3.579.2 1988 Unknown [id number] 2.16840.1.713973.3.579.2 1988 Unknown [id number] 2.840.1.357743.3.579.2 1988 Unknown [id number] 2.840.1.179463.3.579.2 1988 Unknown [id number] 2.840.1.221588.3.579.2 1988 Unknown [id number] 2.840.1.968759.3.579.2 1988 Unknown [id number] 2840.1.293758.3.579.2 1988 Unknown [id number] 2.840.1.143291.3.579.2 1988 Unknown [id number] 2.840.1.269168.3.579.2 1988 Unknown [id number] 2840.1.328997.3.579.2 1988 Unknown [id number] 840.1.347329.3.579.2 1988 Unknown [id number] 840.1.378710.3.579.2 1988 Unknown [id number] .840.1.868047.3.579.2 1988 Unknown [id number] 2840.1.778792.3.579.2 1988 Unknown [id number] 2840.1.108211.3.579.2 1988 Unknown [id number] 2.16.840.1.836735.3.579.2. 627 1988 Unknown [id number] 2.16840.1.302746.3.579.2. 62 1988 Unknown [id number] 2.16840.1.507125.3.579.2. 62 1988 Unknown [id number] 2.840.1.501157.3.579.2. 1988 Unknown [id number] 2.840.1.765188.3.579.2. 62 1988 Unknown [id number] 2.840.1.699657.3.579.2. 1988 Unknown [id number] 2.840.1.793532.3.579.2 1988 Unknown [id number] .1.570123.3.579.2. 1988 Unknown [id number] 2.840.1.356277.3.579.2. 62 1988 Unknown [id number] 2840.1.961762.3.579.2. 1988 Unknown [id number] 840.1.566670.3.579.2. 62 1988 Unknown [id number] 840.1.121056.3.579.2. 62 1988 Unknown [id number] 840.1.349821.3.579.2. 62 1988 Unknown [id number] 2840.1.819855.3.579.2. 1988 Unknown [id number] 2.16840.1.758223.3.579.2. 651 1988 Unknown [id number] 2.840.1.494284.3.579.2. 651 1988 Unknown [id number] 2.16.840.1.443094.3.579.2. 651 1988 Unknown [id number] 2.16.840.1.813008.3.579.2. 65 1988 Unknown [id number] 2.16.840.1.457364.3.579.2. 651 1988 Unknown [id number] 2.16.840.1.640727.3.579.2. 65 1988 Unknown [id number] 2.16.840.1.069458.3.579.2. 65 1988 Unknown [id number] 2.16.840.1.329627.3.579.2. 65 1988 Unknown [id number] 2.16.840.1.106013.3.579.2 65 1988 Unknown [id number] 2.16840.1.864813.3.579.2. 65 1988 Unknown [id number] 2.16840.1.904239.3.579.2. 65 1988 Unknown [id number] 2.16.840.1.386012.3.579.2. 65 1988 Unknown [id number] 2.16.840.1.288683.3.579.2. 651 1988 Unknown [id number] 2.16.840.1.213807.3.579.2. 65 1988 Unknown [id number] 2.16.840.1.738246.3.579.2. 651 1988 Unknown [id number] 2.16.840.1.790526.3.579.2. 65 1988 Unknown [id number] 2.16.840.1.941061.3.579.2. 651 1988 Unknown [id number] 2.16.840.1.983631.3.579.2. 65 1988 Unknown [id number] 2.16.840.1.872958.3.579.2. 651 1988 Unknown [id number] 2.16.840.1.981052.3.579.2. 651 1988 Unknown [id number] 2.16.840.1.516824.3.579.2. 651 1988 Unknown [id number] 2.16.840.1.462719.3.579.2. 651 Unknown [facility] Medicare [id number] Unknown [id number] 2.16.840.1.749702.3.579.2. 462 Unknown [id number] 2.16.840.1.711677.3.579.2. 462 Unknown [id number] 2.16.840.1.635002.3.579.2. 462 Unknown [id number] 2.16.840.1.705727.3.579.2. 462 Social History Date Type Detail Facility [facility] Tobacco smoking consumption unknown [facility] Start: 04-12-2020 End: 02-16-2025 Light tobacco smoker (finding) [facility] Comment on above: current vaping Start: 1990 Sex Assigned At Female A [facility] Start: 07-09-2023 End: 12-16-2024 Tobacco smoking status Ex-smoker (finding) [facility] Comment on above: current vaping Tobacco smoking status Never [facility] Comment on above: current vaping Sexual Orientation [facility] Start: 04-10-2020 End: 05-16-2025 Sex Female (finding) [facility] Start: 04-09-2025 End: 06-04-2025 Tobacco smoking status MNIS Smokes tobacco daily (finding) [facility] Start: 1988 Sex assigned at Not on file [facility] Gender identity Not on file [facility] Medical Equipment Procedure Code Equipment Code Equipment [...] Assessment Result Facility 03-09-2025 Functional Status Independent [facility] 03-09-2025 Functional Status Standard Safet y ID band on, Call device within reach, Bed in low position, Wheels locked, Upper/Half-Length side-rails up, Phone within reach, personal items within reach, Assistive devices within reach, Bedside Cart Locked, Law enforcement present [facility] 02-16-2025 Functional Status Awake, Resting [facility] 02-16-2025 Functional Status Less than 8 hours [facility] 12-22-2024 Functional Status Independent [facility] 12-22-2024 Functional Status Repositions self [facility] 12-22-2024 Functional Status Maintained [facility] 12-16-2024 Functional Status [facility] 08-11-2024 Functional Status Independent [facility] 08-11-2024 Functional Status Repositions self [facility] 08-11-2024 Functional Status Maintained [facility] 08-06-2024 Functional Status Sensory Deficits None [facility] 06-09-2024 Functional Status Awake, Up ad marisa [facility] 06-09-2024 Functional Status [facility] 06-09-2024 Functional Status Maintained [facility] 04-14-2024 Functional Status Awake, Resting [facility] 04-14-2024 Functional Status Sensory Deficits None [facility] 03-03-2024 Functional Status Awake, Resting [facility] 03-03-2024 Functional Status [facility] 03-03-2024 Functional Status [facility] 01-21-2024 Functional Status Awake, Resting [facility] 01-21-2024 Functional Status Independent [facility] 01-21-2024 [facility] Functional Status Up ad marisa [facility] 12-03-2023 Functional Status ID band on, Allergy Band on, Call device within reach, Bed in low position, Wheels locked, Upper/Half-Length side-rails up, Phone within reach, personal items within reach, Visitor at bedside, Non-Slip footwear [facility] 12-03-2023 Functional [facility]22-[facility]23 Functional Status Awake [facility] 10-22-2023 Functional Status [facility] 10-22-2023 [facility] 07-24-2023 [facility]ake [facility] 07-24-2023 Functional Status [facility] 07-24-2023 Functional [facility] 07-16-2023 Functional Status Room check performed [facility] 07-16-2023 Functional Status [facility] 07-16-2023 Functional Status [facility] 07-15-2023 Functional Status [facility] 07-15-2023 Functional Status [facility] 07-15-2023 Functional Status [facility] 07-15-2023 Functional Status Dinner Percent 75 [facility] 07-15-2023 Functional Status [facility] [...] Beds/Devices H ospital bed, pressure reduction mattress [facility] 07-09-2023 Functional Status Personal ADL [facility] 07-09-2023 Functional Status Sensory Deficits None A [facility] 05-07-2023 Functional Status Room check performed [facility] 05-07-2023 Functional Status [facility] 05-07-2023 Functional Status [facility] 05-07-2023 Functional Status [facility] 05-06-2023 Functional Status [facility] 05-05-2023 Functional Status Lunch Percent 75 [facility] 05-05-2023 Functional Status [facility] 05-04-2023 Functional Status Patient refused [facility] 05-03-2023 Functional Status Hospital bed [facility] 05-02-2023 Functional Status Done [facility] 05-02-2023 Functional Status [facility] 05-01-2023 Functional Status [facility] 04-30-2023 Functional Status Feeding Assistance Inde pendent [facility] 04-29-2023 Functional Status [facility] 04-29-2023 Functional Status NPO Status Maintained A [facility] 04-28-2023 Functional Status Sensory Deficits None A [facility] 03-05-2023 Functional Status 75 [facility] 03-05-2023 Functional Status Not done 1 [facility] 03-05-2023 Functional Status Non-Slip footw ear, Room check performed [facility] 03-04-2023 Functional Status [facility] 03-04-2023 Functional Status [facility] 03-04-2023 Functional Status Independent [facility] 03-02-2023 Functional Status [facility] 03-01-2023 Functional Status [facility] 03-01-2023 Functional Status Repositions self [facility] 03-01-2023 Functional Status [facility] 02-28-2023 Functional Status [facility] 02-28-2023 Functional Status [facility] 02-28-2023 Functional Status SCD Removed/Of f bilateral knee high [facility] 02-28-2023 Functional Status [facility] 02-27-2023 Functional Status [facility] 02-27-2023 Functional Status [facility] 02-27-2023 Functional Status [facility] 02-25-2023 Functional Status [facility] 02-24-2023 Functional Status [facility] 02-24-2023 Functional Status Living Situation Lives alone [facility] 02-24-2023 Functional Status [facility] 02-17-2023 Functional Status Ambulating in avila, Ambulating in room, Up ad marisa, Up to bathroom [facility] 02-17-2023 Functional Status Maintained [facility] 01-06-2023 Functional Status None [facility] 01-06-2023 Functional Status SCD Removed/Of f bilateral knee [facility] 01-06-2023 Functional Status [facility] 01-06-2023 Functional Status [facility] 01-06-2023 Functional Status Yes [facility] 01-06-2023 Functional Status Room check performed [facility] 01-05-2023 Functional Status [facility] 01-04-2023 Functional Status SCD On/Re-appl ied bilateral knee [facility] 01-03-2023 Functional Status Independent [facility] 01-02-2023 Functional Status NPO Status confirmed [facility] 01-02-2023 Functional Status Living Situation Lives alone [facility] 01-01-2023 Functional Status Awake [facility] 01-01-2023 Functional Status [facility] 11-15-2022 Functional Status ID band on, Allergy Band on, Safety level maintained [facility] 11-15-2022 Functional Status NPO Status confirmed [facility] 11-15-2022 Functional Status [facility] 10-08-2022 Functional Status Yes [facility] 10-08-2022 Functional Status [facility] 10-08-2022 Functional Status [facility] 10-08-2022 Functional Status [facility] 10-07-2022 Functional Status [facility] 10-07-2022 Functional Status High Risk Safe ty Room check performed [facility] 10-07-2022 Functional Status [facility] 10-07-2022 Functional Status [facility] 10-06-2022 Functional Status [facility] 10-06-2022 Functional Status [facility] 10-05-2022 [facility] Hospital bed Van[facility] 10-05-2022 Functional Status Vanessa [facility] 10-03-2022 Functional Status Living Situation Lives alone [facility] 10-03-2022 Functional Status Independent 1 Vanessa [facility] 10-02-2022 Functional [facility] Mod [facility] 08-16-[facility]22 Functional Status Door open, Room check performed [facility] 08-15-2022 Functional Status Demonstrates C orrect Call Light Use Yes [facility] 08-15-2022 Functional [facility] 08-15-[facility] Functional Status Vanessa [facility] 08-15-2022 Functional Status Vanessa [facility] 08-14-2022 Functional [facility]12[facility] 08-11-2022 Functional Status Assistive Device None A [facility] 08-10-2022 Functional [facility] 08-10-2022 Functional Status Independent, Setup [facility] 08-09-2022 Functional Status bilateral knee high [facility] 08-09-2022 [facility] 08-08-[facility]22 Functional Status Awake, Remains up in chair, Repositions self, Resting [facility] 08-08-2022 Functional Status [facility] 07-04-2022 Functional Status confirmed [facility] 07-04-2022 Functional Status [facility] 04-19-2022 Functional Status Yes [facility] 04-19-2022 Functional Status Patient refused [facility] 04-19-2022 Functional Status Room check performed [facility] 04-18-2022 Functional Status [facility] 04-18-2022 Functional Status [facility] 04-18-2022 Functional Status [facility] 04-18-2022 Functional Status [facility] 04-18-2022 Functional Status SCD Removed/Of f bilateral knee high [facility] 04-18-2022 Functional Status [facility] 04-17-2022 Functional Status [facility] 04-17-2022 Functional Status [facility] 04-17-2022 Functional Status [facility] 04-16-2022 Functional Status [facility] 04-15-2022 Functional Status [facility] 04-15-2022 Functional Status [facility] 04-15-2022 Functional Status [facility] 04-11-2022 Functional Status confirmed [facility] 04-11-2022 Functional Status Sensory Deficits None A [facility] 03-26-2022 Functional Status ID band on, Allergy Band on [facility] Functional observable [facility] [place] Mental Status Date Assessment Result Facility 03-15-2025 Mental Status Orientation Oriented x 4 [facility] 03-09-2025 Mental Status Orientation Oriented x 4 [facility] 03-09-2025 Mental Status [facility] 02-16-2025 Mental Status Oriented x 4 [facility] 12-22-2024 Mental Status Oriented x 4 [facility] 08-11-2024 Mental Status Oriented x 4 [facility] 08-11-2024 Mental Status [facility] 08-11-2024 Mental Status Orientation Asse ssment Oriented x 4 [facility] 06-09-2024 [facility] Status Oriented x 4 [facility] 03-03-2024 Mental Status Orientation Oriented x 4 [facility] 03-03-2024 Mental Status [facility] 03-03-2024 Mental Status [facility] 01-21-2024 Mental Status Orientation Oriented x 4 [facility] 01-21-2024 Mental Status [facility] 01-21-2024 Mental Status [facility] 12-03-2023 Mental Status Orientation Oriented x 4 [facility] 12-03-2023 Mental Status [facility] 12-03-2023 Mental Status [facility] 10-22-2023 Mental Status Oriented x 4 [facility] 07-24-2023 Mental Status Oriented x 4 [facility] 07-16-2023 Mental Status Oriented x 4 [facility] 07-15-2023 Mental Status [facility] 07-15-2023 Mental Status [facility] 07-14-2023 Mental Status [facility] 05-07-2023 Mental Status Orientation Oriented x 4 [facility] 05-06-2023 Mental Status [facility] 05-06-2023 Mental Status [facility] 05-05-2023 Mental Status Orientation Asse ssment Oriented x 4 [facility] 05-05-2023 Mental Status [facility] 05-05-2023 Mental Status [facility] 03-05-2023 [facility] 03-04-2023 [facility] 03-03[facility] 02-17-[facility]23 Mental Status Orientation Oriented x 4 [facility] 02-17-2023 [facility] 01-06-[facility]23 Mental Status Orientation Oriented x 4 [facility] 01-05-2023 Mental Status [facility] 01-05-2023 [facility] 01-02-[facility]23 Mental Status Orientation Asse ssment Oriented x 4 [facility] 01-01-2023 Mental Status [facility] 01-01-2023 Mental Status Orientation Oriented x 4 [facility] 11-15-2022 Mental Status [facility] 10-08[facility]22 Mental Status Orientation Oriented x 4 [facility] 10-08-2022 Mental Status [facility] 10-07-2022 Mental Status [facility] 10-06-2022 Mental Status Orientation Asse ssment Oriented x 4 [facility] 10-03-2022 Mental Status [facility] 10-02-[facility]22 [facility] Status [facility] 08-16-2022 Mental Status Oriented x 4 [facility] 08-15-2022 Mental Status [facility] 08-14-2022 [facility] Status [facility] 08-11-2022 [facility] Status [facility] 08-08-2022 Mental Status Orientation Oriented x 4 [facility] 07-04-2022 Mental Status [facility] x [facility] 07-04-2022 [facility] Status [facility] 04-19-2022 Mental Status Orientation Oriented x 4 [facility] 04-18-2022 Mental Status [facility] 04-18-2022 Mental Status [facility] 04-11-2022 Mental Status [facility] x [facility] 04-11-[facility] Mental Status [facility] 07-13-2021 Cognitive functi ons [id number] [facility] Clinical Notes 07-02-2021 to 06-04-2025 Note Date & Type Note Facility 06-04-2025 Radiology Diagnostic study note [facility] Imaging Services [address] [place] [address] Abdomen/Pelvis W IV Cont ONLY MR#: [id number] Acct: [id number] Name: LALY NAVAS Rep #: [id number] : 1990 F 34 From: Stefanie Crowley MD PCP: OLE PACE Status: REG ER Study:Abdomen/Pelvis W IV Cont ONLY Date of E xam: 06/04/25 Exam# [id number] Ordering Dr: Yeison Webber DO PROCEDURE: ABDOMEN/PELVIS [...] small distal left ureteral stones. [place] Location: [facility] CC: Dr. Yeison Webber, DO; OLE PACE ~ Fire Tender: Signed [facility] 05-30-2025 Discharge summary Date of Service 05/30/2025 [...] patient had an appointment with urology [facility] to be evaluated for possible nephrectomy and is no longer established with [facility]. She was afebrile but hypertensive on [...] her. Patient does have follow-up appointment with [facility] urology and will require further management. [...] OLE PACE MD When:Within 1-2 days Where:[address] [place] [address] [place] [address]- [phone] Additional Information: Please call the office to schedule a hospital follow up appointment. Follow Up Appointments No qualifying data available. Follow Up Labs/Studies Discharge Labs No Follow-up Labs Discharge Studies No Follow-up Studies Discharge Diet No qualifying data available. Discharge Activity No qualifying data available. Digitally Signed by SKY HARRIS MD on 05/30/2025 04:50 PM [facility] 05-30-2025 Pastoral care Progress note Pastoral Care [...] by Viral Villalobos on 05/30/2025 03:45 PM [facility] 05-30-2025 Nurse Progress note Patient insisted on leaving AMA. Tried to encourage patient to at least wait until the DrApril could come to speak with her. She refused any information and did not want to speak with before leaving. Patient was given AMA paperwork per her request. Digitally Signed by Padmini Ramirez LPN on 05/30/2025 12:51 PM [facility] 05-30-2025 Note Patient denies any issues managing Nephrostomy at home. Skin team not following. Digitally Signed by JAMAL Phipps on 05/30/2025 12:35 PM [facility] 05-29-2025 Note Date of Service 05/29/2025 Subjective Patient is a 34-year-old female with history of chronic hydronephrosis, chronic left ureteral stone status post recent nephrostomy tube placement in May 07, 2025, presenting with acute complicated UTI. Patient was recently discharged from urology service at [facility]. Currently planning to establish care with urology at [facility] on Friday. Overnight, patient is feeling [...] from midnight. Discussed with urology team at [facility]. Patient was recently discharged from the service. [...] TIFFANY ARCHULETA MD on 05/29/2025 04:15 PM [facility] 05-29-2025 Hospital Discharg e instructions Additional Instructions [...] not controlled with medications return for reevaluation. [facility] Work Phone: 05-28-2025 Note Date of Service 05/28/2025 Subjective Patient is a 34-year-old female with history of chronic hydronephrosis, chronic left ureteral stone status post recent nephrostomy tube placement in May 07, 2025, presenting with acute complicated UTI. Patient was recently discharged from urology service at [facility]. Currently planning to establish care with urology at [facility] on Friday. Overnight, patient is feeling [...] tube replacement. Discussed with urology team at [facility]. Patient was recently discharged from the service. SCD for DVT prophylaxis Level of Care Indication Regular Floor DVT Prophylaxis Other: specify in note Maintenance IVF Indication NA / No maintenance IVF Indwelling Urinary Catheter Indication Obstruction Anticipated Timeline of Discharge 48 hours Anticipated DC Disposition Home without services Digitally Signed by TIFFANY ARCHULETA MD on 05/28/2025 01:36 PM [facility] 05-27-2025 History and physical note [facility] History and Physical Date [...] multiple times in the past. Urology from [facility] will no longer see the patient as she has been discharged from their service due to the patient's attitude toward staff. Patient reports that for the last several days she has had severe left sided flank pain. Has also had nausea but no vomiting. Denies fevers. Of note the patient does have an appointment with urology at [facility] on Friday afternoon to be [...] does have an appointment with urology at [facility] Friday afternoon to be evaluated for possible nephrectomy. Anxiety/depression. Continue home medications Chronic asthma not in exacerbation Cervical cancer in remission Chronic pain syndrome follows with palliative care Prophylaxis SCD in case of procedure Code status full code Digitally Signed by OLI HERRERA MD on 05/27/2025 10:35 PM [facility] 05-27-2025 Hospital Discharg e instructions Follow Up Care 05/27/2025 12:51:48 With:OLE PACE MD Address: [address] [place] [address] [place] [address]- [phone] When:1-2 days Comments:Please call the office to schedule a hospital follow up appointment. [facility] 05-27-2025 Evaluation + Plan note Extrac raghu from: Title:Clinical Document Author:OLI HERRERA MD Date:05/27/25 [facility] History and Physical Date [...] multiple times in the past. Urology from [facility] will no longer see the patient as she has been discharged from their service due to the patient's attitude toward staff. Patient reports that for the last several days she has had severe left sided flank pain. Has also had nausea but no vomiting. Denies fevers. Of note the patient does have an appointment with urology at [facility] on Friday afternoon to be [...] does have an appointment with urology at [facility] Friday afternoon to be evaluated for possible nephrectomy. Anxiety/depression. Continue home medications Chronic asthma not in exacerbation Cervical cancer in remission Chronic pain syndrome follows with palliative care Prophylaxis SCD in case of procedure Code status full code Future Appointments Appointment Date:06/08/2025 11:30:00 AM Scheduled Provider:OLE PACE MD Location:[facility] Palliative Appointment Type:PALL OV Follow Up Appointment Date:06/29/2025 08:00:00 AM Scheduled Provider: Location:IR Appointment Type:IR Nephrostomy Exchange Future Scheduled Tests Laboratory* hCG, quantitative (AH/AM Only) 11/15/24 Radiology* IR Nephrostomy Exchange 06/29/25 * IR Nephrostomy Exchange 12/30/24 * CT Renal 03/08/25 * NM Kidney Diuretic 03/08/25 * NM Kidney Diuretic 04/12/25 [facility] 07-24-2025 Emergency department Discharge summary Discharge Instructions [...] to receive it can visit one of [facility] vaccine clinics. There are many vaccine clinic locations within the [facility]. For locations and available times, please visit [email or web address]/. It is important to note that some COVID mobile vaccine clinics are held outdoors and may be canceled in rainy or stormy conditions. To learn more about pediatric vaccinations (ages 5-11), we invite you to visit the [facility] webpage. https://www.[facility].org/pages/6335-Drzmr-Cpzmmnixydm-Dgjhtygwgl-Kwjqh-Msn stions.htmlTo learn more about the COVID-19 vaccine, we invite you to visit the CDC website for a list of frequently asked questions. https://www.cdc.gov/coronavirus/2019-ncov/vaccines/faq.html [facility] Patient Portal Access Instructions: Stay connected with your healthcare team and access your personal medical information anytime with the [facility] Patient Portal. If you would like a full copy of your medical records please contact the [facility] Medical Records Department Friday through Friday between 8a.m. and 4:30p.m. Please follow the directions below to access the portal: 1.Access the email account you provided upon registration to the [facility].2.Look for an invitation email from [facility].3.Open the email and access the invitation link: Accept Invitation to [facility]4.Fill in the required quintero to create your account. Sign into www.F[employer] You with your username and password that you [...] you will allow to register on the [facility] Patient Portal for access to your information. You can also access the [facility] Patient Portal on the Scripted joya. Simply click on Health Records under [employer] and then click on the [employer] logo. HOW TO SAFELY DISPOSE OF PRESCRIPTION [...] Call your local pharmacy or go to http://bit.TXCOM/0W8Lg0o to find one close to you.3.Make use of household items: Use cat litter or old coffee grounds to dispose medications if other options arenot available. Mix your drugs with these household products, seal them in an airtight container andthrow it into the garbage. Call [facility]: [phone] to be sure your drugs can be [...] aware that I should contact my doctor. Patient/Physical Therapy Aide Signature: Date/Time: Relationship to Patient: Witness Name/Signature: Date/Time: [facility]1075 Note* Exam Date Time Procedure Performing Provider Status 05/25/25 9:[address] Abdomen/Pelvis w/o Contrast CESAR CHEN DO; Auth (Verified) [id number] ORIGINAL EXAMINATION: CT OF THE ABDOMEN AND [...] Date: 05/25/2025 9:38:02 PM Ordering Provider: KORINA ALGERE [id number] NoteReferral received from [facility] to discuss neph[facility] for chronic hydronephrosis and obstructive uropathy. Spoke to patient, appt scheduled 05/26/[address] Raymundo Coburn.[facility]07-15-2025 Telephone encounter Note* Telephone Encounter - Lida Warren - 05/17/2025 1:40 PM EDT Referral received from [facility] to discuss nephrectomy for chronic hydronephrosis and obstructive uropathy. Spoke to patient, appt scheduled 05/26/[address] Raymundo Coburn. [id number] Miscellaneous Notes* Telephone Encounter - Lida aWrren - 05/17/2025 1:40 PM EDT Referral received from [facility] to discuss nephrectomy for chronic hydronephrosis and obstructive uropathy. Spoke to patient, appt scheduled 05/26/[address] Raymundo Coburn. documented in this [facility]07-07-2025 Hospital Discharge instructions Patient Education 05/09/2025 [...] and water are not available, use alcohol-based fruit coordinator to keep from spreading the infection to [...] Yellow color of the eyes or skin 3124-8575 [employer]. [address] [place] [address]. All rights reserved. This information is not [...] foods again, start with small amounts of xdlo-jd-majreg, low- fat foods. These include apple sauce, [...] increase stomach acid. Don't use aspirin or pgeq-xhw-qaiyvpw pain and fever medicines, if possible. This includes nonsteroidal anti-inflammatory drugs (NSAIDs). Lose excess weight. Finish eating at least 2 hours before you go to bed or lie down. Raise the head of your bed. 9894-5013 [employer]. [address] [place] [address], [place] [address]. All rights reserved. This information is not intended as a substitute for professional medical care. Always follow yourhealthcare professional's instructions. Follow Up Care 05/08/2025 23:40:08 With:OLE PACE MD Address: [address] [place] [address], [place] [phone]- [phone] When:2-4 days [facility] 07-07-2025 Emergency department Discharge summary Discharge Instructions [...] OLE PACE MD When:Within 2-4 days Where:[address] [place] [address], [place] [phone]- [phone] Allergies Haldol Tongue swelling Oranges Tongue swelling, [...] and water are not available, use alcohol-based fruit coordinator to keep from spreading the infection to [...] Yellow color of the eyes or skin 5498-3359 [employer]. [address] [place] [address]. All rights reserved. This information is not [...] foods again, start with small amounts of kvko-ae-oygifm, low- fat foods. These include apple sauce, [...] increase stomach acid. Don't use aspirin or pwur-vga-urylegs pain and fever medicines, if possible. This includes nonsteroidal anti-inflammatory drugs (NSAIDs). Lose excess weight. Finish eating at least 2 hours before you go to bed or lie down. Raise the head of your bed. 1026-8170 [employer]. [address] [place] [address], [place] [address]. All rights reserved. This information is not intended as a substitute for professional medical care. Always follow yourhealthcare professional's instructions. Additional Information VACCINATE! IT SAVES LIVES! Members of the community who have not yet received the COVID-19 vaccine and would like to receive it can visit one of [facility] vaccine clinics. There are many vaccine clinic locations within the [facility]. For locations and available times, please visit www.[email or web address]/. It is important to note that some COVID mobile vaccine clinics are held outdoors and may be canceled in rainy or stormy conditions. To learn more about pediatric vaccinations (ages 5-11), we invite you to visit the [facility] webpage. https://www.[facility].org/pages/3019-Faggv-Jqjmsxumnhe-Azxttidolp-Rywzt-Jrz stions.htmlTo learn more about the COVID-19 vaccine, we invite you to visit the CDC website for a list of frequently asked questions. https://www.cdc.gov/coronavirus/2019-ncov/vaccines/faq.html [facility] Patient Portal Access Instructions: Stay connected with your healthcare team and access your personal medical information anytime with the [facility] Patient Portal. If you would like a full copy of your medical records please contact the [facility] Medical Records Department Friday through Friday between 8a.m. and 4:30p.m. Please follow the directions below to access the portal: 1.Access the email account you provided upon registration to the hospital.2.Look for an invitation email from [facility].3.Open the email and access the invitation link: Accept Invitation to [facility]4.Fill in the required quintero to create your account. Sign into www.Fashion & You with your username and password that you [...] you will allow to register on the [facility] Patient Portal for access to your information. You can also access the [facility] Patient Portal on the Scripted joya. Simply click on Health Records under [employer] and then click on the [employer] logo. HOW TO SAFELY DISPOSE OF PRESCRIPTION [...] Call your local pharmacy or go to http://Aptito/1O6Qi5h to find one close to you.3.Make use of household items: Use cat litter or old coffee grounds to dispose medications if other options arenot available. Mix your drugs with these household products, seal them in an airtight container andthrow it into the garbage. Call [facility]: [phone] to be sure your drugs can be [...] aware that I should contact my doctor. Patient/Physical Therapy Aide Signature: Date/Time: Relationship to Patient: Witness Name/Signature: Date/Time: [id number] Note* Exam Date Time Procedure Performing Provider Status 05/09/25 1:[address] Abdomen/Pelvis w/o Contrast JUVENTINO GRECO MD; Auth (Verified) [id number] ORIGINAL EXAMINATION: CT OF THE ABDOMEN AND [...] 05/09/2025 1:46:35 AM Ordering Provider: JASKARAN MEDRANO [id number] Discharge summary Date of Service 05/07/2025 Discharge [...] tube via previouslyestablished tract with new 12 Mongolian nephrostomy catheter tip curled in theleft renal [...] with OLE PACE MD When:Within 1-2 days Where:[facility] [place] [phone]- [phone] Additional Information: Please call the office to [...] by TERRY RAMOS on 05/07/2025 12:09 PM [id number] Discharge summary Date of Service 05/07/2025 Discharge [...] tube via previouslyestablished tract with new 12 Mongolian nephrostomy catheter tip curled in theleft renal [...] with OLE PACE MD When:Within 1-2 days Where:[facility] [address] [place] [phone]- [phone] Additional Information: Please call the office to [...] by TERRY RAMOS on 05/07/2025 12:09 PM [id number] Hospital Discharge instructions Patient Education 05/07/2025 09:18:13 Radiology- Nephrostomy/Nephroureteral Tube Exchange 12/26/2022(CUSTOM) [place] Nephrostomy/Nephroureteral Tube Exchange Discharge Instructions Interventional Radiology [facility] Imaging Services [address] [address] The procedure that you had done today [...] the feeling of the need to urinate. Owfp-pvs-pgryela pain medication should be used for pain [...] the gauze. Supplies may be obtained at: [facility] [address] [facility] Any questions or concerns, please contact your physician or Interventional Radiology at [phone] from 8-4:30pm Friday-Friday. If you do not have a follow up appointment scheduled at the time of discharge, please call Interventional Radiology at the number listed above. Follow Up Care 05/04/2025 18:16:37 With:OLE PACE MD Address: [address] [place] [phone]- [phone] When:1-2 days Comments:Please call the office to schedule a hospital follow up appointment. [facility] 07-05-2025 Note Discharge Instructions Thank you for allowing [facility] to assist you with your healthcare needs. [...] 05/11/2025 11:00 AM EDT OLE PACE MD [facility] Confirmed SO OV Follow Up 05/18/2025 11:20 AM EDT [facility] [address] [place] [phone] Confirmed IR Nephrostomy Exchange 05/19/2025 01:00 PM EDT IR Confirmed Follow Up Appointments Follow Up with OLE PACE MD When:Within 1-2 days Where:[address] [place] [phone]- [phone] Additional Information: Please call the office to [...] medication providers or retail pharmacies. Education Materials [place] Nephrostomy/Nephroureteral Tube Exchange Discharge Instructions Interventional Radiology [facility] Imaging Services [address] [place] [address] The procedure that you had done today [...] the feeling of the need to urinate. Eunb-rzo-hfwqzjs pain medication should be used for pain [...] the gauze. Supplies may be obtained at: [facility] [address] [facility] [address] [facility] Any questions or concerns, please contact your physician or Interventional Radiology at [phone] from 8-4:30pm Friday-Friday. If you do not have a follow up appointment scheduled at the time of discharge, please call Interventional Radiology at the number listed above. Additional Information VACCINATE! IT SAVES LIVES! Members of the community who have not yet received the COVID-19 vaccine and would like to receive it can visit one of [facility] vaccine clinics. There are many vaccine clinic locations within the [facility]. For locations and available times, please visit [email or web address] It is important to note that some COVID mobile vaccine clinics are held outdoors and may be canceled in rainy or stormy conditions. To learn more about pediatric vaccinations (ages 5-11), we invite you to visit the [facility] webpage. https://www.[facility].org/pages/4221-Xhufo-Wnpyzqmxaoa-Uhbcbucycz-Dwuaz-Xxe stions.htmlTo learn more about the COVID-19 vaccine, we invite you to visit the CDC website for a list of frequently asked questions.https://www.cdc.gov/coronavirus/2019-ncov/vaccines/faq.html [facility] Patient Portal Access Instructions: Stay connected with your healthcare team and access your personal medical information anytime with the [facility] Patient Portal. Please follow the directions below to create your [facility] account: 1.Access the email account you provided upon registration to the hospital/physician office.2.Look for an invitation email from [facility].3.Open the email and access the invitation link: [facility]Invitation to [facility].4.Fill in the required quintero to create your account. To access your account, visit [email or web address]. Click the blue button labeled Access Patient [...] who you will allowto register on the [facility] Patient Portal for access to your information. You can also access the [facility] Patient Portal on the [facility] joya. Simply click on Patient Portal and then log into your account. If you would like to receive a full copy of your medical records, please contact the [facility] Medical Records Department by calling [phone], Friday through Friday between 8 a.m. and [...] Call your local pharmacy or go to http://bit.ly/4K9Bk5n to find one close to you.3.Make use of household items: Use cat litter or old coffee grounds to dispose medications if other options arenot available. Mix your drugs with these household products, seal them in an airtight container andthrow it into the garbage. Call [facility]: [phone] to be sure your drugs can be [...] aware that I should contact my doctor. Patient/Physical Therapy Aide Signature: Date/Time: Relationship to Patient: Witness Name/Signature: Date/Time: [facility]zesxhiw64-00-5419 Note Date of Service 05/06/2025 Chief Complaint [...] by TERRY RAMOS on 05/06/2025 01:01 PM [facility] CincinnatiEtlhdwsz11-86-8996 Note* Exam Date Time Procedure Performing Provider Status 05/05/25 5:36 PM IR Nephrostomy Tube CLOTILDE RANDHAWA; Rhett (Verified) [id number] ORIGINAL PROCEDURE: INTRODUCTION-12 Mongolian left NEPHRO TUBE via previously established tract [...] wire recanalization of previously established tract, 5 Mongolian catheter was advanced and antegrade nephrostogram was performed. Catheter was exchanged over stiff guidewire for new 12 Mongolian nephrostomy catheter. Tip curled in left renal pelvis. Antegrade nephrostogram performed to confirm satisfactory tube position. Catheter affixed to the patient's skin. External drainage bag and dressing applied. Patient tolerated procedure well. No complication suggested. CONTRAST: 8 mL Isovue 300 SEDATION: Moderate sedation was ordered and supervised by the attending with physician [id number] monitoring. Medications were provided and recorded by Radiology nurses. See radiology nursing notes for further discussion. FLUOROSCOPY DOSE AND TYPE: Radiation Exposure Index: Kerma 6.68 mGy, 1.5 minutes fluoroscopy time for procedure DESCRIPTION OF PROCEDURE: Informed consent was obtained after a detailed explanation of the procedure including risks, benefits, and alternatives. Eldred protocol was observed. Sterile gowns, masks, hats and gloves utilized for maximal sterile barrier. As above in technique section FINDINGS: Intraprocedural images demonstrate satisfactory caval is a diop of previously established tract into the left renal collecting system. Antegrade nephrostogram demonstrates mild left hydronephrosis. Postprocedure images demonstrate new 12 Mongolian left nephrostomy tube tip curled in the left renal pelvis. No complication suggested. IMPRESSION: Replacement of previously dislodged left nephrostomy tube via previously established tract with new 12 Mongolian nephrostomy catheter tip curled in the left [...] 05/05/2025 5:58:35 PM Ordering Provider: GUCCI MACKEY [facility] CincinnatiYpveifnb14-79-6887 Note IR Procedure Record Summary Primary Physician: CLOTILDE RANDHAWA DO Finalized Date/Time: 05/05/25 17:33:43 Pt. Name: ANTONELLALALY D.O.B./Sex: 1990 Female Med Rec #: [id number] Physician: RHIANNON ARTEAGA MD Financial #: [id number] Pt. Type: O Room/Bed: [facility]/A Admit/Disch: 05/04/25 18:15:33 - Institution: Allergies identified [...] Fairchild Megan R Rad Fierstos, Megan R Make Up Operator Helper 05/05/25 17:32:47 Tech 05/05/25 17:32:47 Tech 05/05/25 17:32:47 Entry 4 Case Attendee Sam Sim Role Performed Scrub Technologist Details Time In 05/05/25 16:50:00 Time Out 05/05/25 17:31:00 Procedure/Preference IR Nephrostomy Tube (SN) Card Last Modified By: Padmini Fairchild Make Up Operator Helper 05/05/25 17:32:47 Radiology Procedures- IR Entry 1 Procedure/Preference IR Nephrostomy Tube (SN) Actual Procedure ir nephrostomy tube Card Primary Procedure Yes Primary Surgeon CLOTILDE RANDHAWA DO Anesthesia/Sedation IV Sedation, Local Type Additional Procedure Times Start 05/05/25 17:13:00 Stop 05/05/25 17:21:00 Specialty Service SN Radiology Procedure EBL 0 mL Last Modified By: Padmini Fairchild Make Up Operator Helper 05/05/25 17:32:50 Radiology Procedure Details - IR [...] for suture Last Modified By: Padmini Fairchild Make Up Operator Helper 05/05/25 17:29:05 General Case Data - IR Entry 1 Case Information Room AH IR 17 Case Level IR Level 3 Wound Class None Specialty SN Radiology Procedure ASA Class None Diagnosis Preop Diagnosis left neph tube fell out Postop Same As Preop Yes Postop Diagnosis left neph tube fell out Last Modified By: Padmini Fairchild Make Up Operator Helper 05/05/25 17:33:07 Medication Administration- IR Entry 1 [...] Back from: Last Modified By: Padmini Fairchild Rad Padmini Fairchild AddShoppers 05/05/25 17:17:38 Tech 05/05/25 17:17:38 Procedure Case Times- IR Entry 1 Patient In Procedure Patient In OR 05/05/25 16:50:00 Patient Out of OR 05/05/25 17:31:00 Procedure Start/Stop Procedure Start Time 05/05/25 17:13:00 Procedure Stop Time 05/05/25 17:21:00 Last Modified By: Padmini Fairchild R AddShoppers 05/05/25 17:29:18 Immediate Post OP Note - IR Entry 1 Immediate Post Yes Findings Successful left neph Procedure Note tube reinsertion displayed for Physician to review Closure Technique Closure Technique Other than Primary Last Modified By: Padmini Fairchild R AddShoppers 05/05/25 17:18:38 Immediate Post OP Note - IR Signed By: CLOTILDE RANDHAWA DO 05/05/25 17:21 Allergy Information- IR Entry 1 Allergies Reviewed? Yes Allergies Reviewed Medical Record With Last Modified By: Padmini Fairchild R AddShoppers 05/05/25 17:11:17 Radiology Protocols/Time Out- IR Entry [...] properly Grace, Padmini Fairchild labeled and R Make Up Operator Helper appropriately displayed, Alcohol based prep dry Instrument Sterility Team Members Sam Sim Verifying Sterility Procedure IR Nephrostomy Tube (SN) Last Modified By: Padmini Fairchild 05/05/25 17:16:02 Skin Prep- IR Entry 1 Procedure IR Nephrostomy Tube (SN) Skin Prep Prep Area Flank Side Left By Sam Sim Prep Agents Chloraprep Hair Removal Method N/A Last Modified By: Padmini Fairchild 05/05/25 17:18:04 Patient Positioning- IR Entry 1 Procedure IR Nephrostomy Tube (SN) Body Position OP Prone Feet Uncrossed? n/a Pressure Points n/a Checked Last Modified By: Padmini Fairchild 05/05/25 17:18:13 Radiology Procedure Plan - IR [...] Radiology - Action Plan Outcomes Met? 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 Polisher Dial: Dr. Clotilde Randhawa, Procedure: [recanalization of previous left nephrostomy tube [...] CLOTILDE RANDHAWA DO on 05/05/2025 05:26 PM [facility] CincinnatiUohskqwm32-24-3226 Evaluation + Plan noteExtracted from: Title:History and [...] Date:05/11/2025 11:00:00 AM Scheduled Provider:OLE PACE MD Location:[facility] Palliative Appointment Type:PALL OV Follow Up Appointment Date:05/18/2025 11:20:00 AM Scheduled Provider: Location[facility] Appointment Type:SO OV Follow Up Appointment Date:05/19/2025 01:00:00 PM Scheduled Provider: Location:IR Appointment Type:IR Nephrostomy Exchange Future Scheduled Tests Laboratory* hCG, quantitative (AH/AM Only) 11/15/24 Radiology* IR Nephrostomy Exchange 05/19/25 * IR Nephrostomy Exchange 12/30/24 * CT Renal 03/08/25 * NM Kidney Diuretic 03/08/25 * NM Kidney Diuretic 04/12/25 [facility] 07-03-2025 History and physical note Date of [...] 10^3/mcL (05/04/25 21:38:00) UA Specimen Type: Void (05/04/25 21:38:00) UA Color: Yellow (05/04/25 21:38:00) UA Appear: Clear (05/04/25:38:00) UA Spec Grav: 1.010 (05/04/25 21:38:00) UA Glucose: Negative. (05/04/25 21:38:00) UA Bili: Negative. (05/04/25 21:38:00) UA Ketones: Negative.1 (05/04/25:38:00) UA Blood: Negative. (05/04/25 21:38:00) UA pH: 8.0 (05/04/25 21:38:00) UA Protein: Negative.1 (05/04/25 21:38:00) UA Urobilinogen: 0.2 (05/04/25:38:) UA Nitrite: Negative. (05/04/25:38:) UA Leuk Est: Negative. (05/04/25:38:) UA RBC: 3-5 Abnormal (05/03/25 10:09:00) UA WBC: 25-50 Abnormal (05/03/25 10:09:00) UA Squam Epithelial: 0-2 (05/03/25 10:09:00) UA Amorphus: 2+ (05/03/25 10:09:00) UA Bacteria: 3+ Abnormal (05/03/25 10:09:00) Urine POC: Negative (05/05/25 00:44:00) Glucose Level: 91 mg/dL (05/04/25:38:) Sodium Level: 142 mEq/L (05/04/25:38:) Potassium Level: 4.2 mEq/L (05/04/25::) Chloride: 109 mEq/L (05/04/25::) CO2: 25 mEq/L (05/04/25:38:) Electrolyte Balance: 8 mEq/L (05/04/25:38:) BUN: <5.0 Low (05/04/25:38:) Creatinine Lvl (s): 0.92 mg/dL (05/04/25:38:) Estimated Glomerular Filtration Rate: 83 ml/min/1.73sqm (05/04/25:38:) BUN/Creatinine Ratio: Unable to Calculate (05/04/25::) Calcium Lvl: 9.2 mg/dL (05/04/25:38:) Magnesium Lvl: 2.1 mg/dL (04/07/25 02:33:00) Total [...] RHIANNON ARTEAGA MD on 05/05/2025 01:11 AM [facility]Mhmvclfn57-89-7497 Hospital Discharge instructions Patient Education 05/03/2025 12:19:03 [...] may use Herbs, vitamins, and other supplements Zdrs-ops-aytcvoc medicines that don t need a prescription, [...] or if you develop fever or chills. 5060-1659 [employer]. [address] [place] [address]. All rights reserved. This information is not intended as a substitute for professional medical care. Always follow yourhealthcare professional's instructions. Follow Up Care 05/03/2025 04:50:47 With:Call our interventional radiology department to schedule an outpatient nephrostomy exchange if you desire. Address:Unknown When:2-4 days With:You may follow-up with [facility] for nephrostomy exchange since that is where you told our urology practice that is where you will seek urolog care Address:Unknown When:2-4 days With:OLE PACE MD Address: [address] [place] [phone]- [phone] When:2-4 days [facility] 07-01-2025 Emergency department Discharge summary Discharge Instructions Thank you for allowing [facility] to assist you with your healthcare needs. The following is importantdischarge information regarding your hospital visit. Diagnosis from Today's Visit Left flank pain What to Do Next Instructions from Your Care Team You are stable to discharge home. You would previously told our urology group that you would follow-up with [facility] in the future for urologic care. He may follow-up with [facility] orcall our interventional radiology department to [...] Follow Up with You may follow-up with [facility] for nephrostomy exchange since that is whereyou told our urology practice that is where you will seek urolog care When:Within 2-4 days Follow Up with OLE PACE MD When:Within 2-4 days Where:[address] [facility] [place] [address] [phone] Allergies Haldol Tongue swelling Oranges Tongue swelling, [...] may use Herbs, vitamins, and other supplements Xvdk-qgf-lliszou medicines that don t need a prescription, [...] or if you develop fever or chills. 4854-4454 [employer]. [address] [place] [address]. All rights reserved. This information is not intended as a substitute for professional medical care. Always follow yourhealthcare professional's instructions. Additional Information VACCINATE! IT SAVES LIVES! Members of the community who have not yet received the COVID-19 vaccine and would like to receive it can visit one of [facility] vaccine clinics. There are many vaccine clinic locations within the [facility]. For locations and available times, please visit www.[email or web address].gov/. It is important to note that some COVID mobile vaccine clinics are held outdoors and may be canceled in rainy or stormy conditions. To learn more about pediatric vaccinations (ages 5-11), we invite you to visit the [facility] webpage. https://www.[facility].org/pages/0825-Jsxkd-Srwnerxliqw-Ohgkgvqxgt-Btgil-Bcu stions.htmlTo learn more about the COVID-19 vaccine, we invite you to visit the CDC website for a list of frequently asked questions. https://www.cdc.gov/coronavirus/2019-ncov/vaccines/faq.html [facility] Patient Portal Access Instructions: Stay connected with your healthcare team and access your personal medical information anytime with the [facility] Patient Portal. If you would like a full copy of your medical records please contact the [facility] Medical Records Department Friday through Friday between 8a.m. and 4:30p.m. Please follow the directions below to access the portal: 1.Access the email account you provided upon [facility].2.Look for an invitation email from [facility].3.Open the email and access the invitation link: Accept Invitation to [facility]4.Fill in the required quintero to create your [...] you will allow to register on the [facility] Patient Portal for access to your information. You can also access the [facility] Patient Portal on the [employer] [facility]jya. Simply click on Health Records under HealthData [...] Call your local pharmacy or go to http://[email or web address].TXCOM/[email or web address] to find one close to you.3.Make use of household items: Use cat litter or old coffee grounds to dispose medications if other options arenot available. Mix your drugs with these household products, seal them in an airtight container andthrow it into the garbage. Call [facility]: [phone] to be sure your drugs can be [...] aware that I should contact my doctor. Patient/Physical Therapy Aide Signature: Date/Time: Relationship to Patient: Witness Name/Signature: Date/Time: [facility] CincinnatiZicqnany76-01-1388 Note* Exam Date Time Procedure Performing Provider Status 05/03/25 10:[address] Abdomen/Pelvis w/o Contrast CLOTILDE BENSON MD; Auth (Verified) [id number] ORIGINAL EXAMINATION: CT OF THE ABDOMEN AND [...] CT W/IV CONTRAST AT 4AM TODAY IN [place] NEPHROSTOMY LEFT SINCE 2019 CERVICAL CA W/ [...] 05/03/2025 11:34:06 AM Ordering Provider: CLOTILDE VILLA [facility] CincinnatiTgmmxyub20-56-7281 Discharge summary [facility] Medical Records Department [address] [place] [address] Emergency Department Summary 04/09/25 MR#: [id number] Acct: [id number] Name: LALY NAVAS Rep #:[id number] : 1990 34 From: Jatin Garcia MD [...] has been doing but the pain is hpn-fz-seuazpr and she is feeling very nauseated and does not want to waste her pain management prescription by vomiting it up. She denies any fevers or chills. No dysuria orhematuria. She has been on antibiotics for several weeks, currently on Bactrim,and states that she was admitted to [facility] where her oncologist and urologist are, she [...] has known about those issues for years. [facility] Medical History Nephrostomy present Kidney failure [...] % (Auto) 54.6 Lymph % (Auto) 32.0 [place] % (Auto) 8.9 Eos % (Auto) 3.2 [...] Clarity Clear Urine pH 6.[address] [place] 1.010 Urine Protein Negative Urine Glucose (UA) [...] Staff - Active Staff] - Print Language: Macanese Disposition Disposition: Home, Self Care What to do if you have Problems For any increased pain, shortness of breath, bleeding, nausea or vomiting, chestpain, or any unexpected problems, contact your Primary Care Provider. Call [facility] ([phone]) or report tothe closest Emergency Room. Call 911 if necessary. 04/09/25 0244 Cosigner Signature (if applicable): CC: OLE PACE ~ Signed [facility]06-05-2025 Discharge summary Date of Service 04/07/25 [...] PACE MD When:Within 2-4 days Where:[address] [place] [phone]- [phone] Follow Up Appointments No qualifying data available. [...] FRED CARBAJAL MD on 04/07/2025 05:39 PM [facility] CincinnatiSmbmmgsd85-97-3290 Urology Progress note Date of Service 04/07/2025 I went to the patient's room to discuss her situation along with my nurse practitioner, Amberly Haque. I told the patient that I am no longer comfortable doing her surgery since she was threatening me and making demands. The patient stated that [facility] has been neglecting her care. The patient then proceeded to remove her IV. The patient stated that she will be going to see [facility] at the [facility]. On multiple occasions the patient stated that [...] GONZALEZ SANDERS MD on 04/07/2025 01:05 PM [facility] CincinnatiMgjkgsoa98-79-4930 Note Reason for Consultation Admission From: Home No qualifying data available. Skin Team Findings Vitals and Measurements T: 36.6 C (Oral) TMIN: 36.5 C (Oral) TMAX: 36.8 C (Oral) HR: 67 RR: 20 BP: 143/94 SpO2: 96% HT: 165.1 cm WT: 51.8 kg BMI: 19 Pressure Area Details No pressure injuries. Patient has an established nephrostomy. Orders placed in to [facility]. Assessments and Recommendations ------Assessments------ Current Skin/Wound [...] Paola Chiang RN on 04/07/2025 11:27 AM [facility] CincinnatiRjgxfcte85-23-3332 Urology Consult note Date of Service 04/07/2025 [...] and have her follow up at the [facility]. I strongly advised that she should remain compliant with our recommendations. Apparently, her boyfriend then called the office and raised his voice at my nurse and the patient called the patient office rep and said shewants me to do her [...] GONZALEZ SANDERS MD on 04/07/2025 09:46 AM [facility] CincinnatiVentigai22-61-9793 Palliative care Progress note Palliative care consulted [...] SANTINO SAWYER MD on 04/07/2025 09:25 AM [facility] CincinnatiBsevilth45-16-3521 History and physical note Date of Service [...] BHUPENDRA GALVEZ DO on 04/06/2025 11:09 PM [facility] CincinnatiXgvbufcp06-41-0188 Note* Exam Date Time Procedure Performing Provider Status 04/06/25 4:45 PM US Renal SCOOBY JOSE MD; Auth (Verified) [id number] ORIGINAL EXAMINATION: ULTRASOUND OF THE KIDNEYS 04/06/2025 [...] 04/06/2025 4:58:12 PM Ordering Provider: DAO COBURN [facility] CincinnatiKjagfqpp31-60-9288 Note* Exam Date Time Procedure Performing Provider Status 04/06/25 3:46 PM XR Abdomen AP TRICIA ADAMSON DO; Auth (Verified) [id number] ORIGINAL EXAMINATION: ONE SUPINE XRAY VIEW(S) OF [...] Sign Date: 04/06/2025 4:01:45 PM Ordering Provider: [facility]06-04-2025 Hospital Discharge instructions Follow Up Care 04/06/2025 13:04:40 With:OLE PACE MD Address: [address] [place] [address] [place] [address]- [phone] When:2-4 days [facility] 06-04-2025 Evaluation + Plan noteExtracted from: Title:History [...] Exchange Appointment Date:05/18/2025 11:20:00 AM Scheduled Provider: Location:[facility] Appointment Type:SO OV Follow Up Future Scheduled Tests Laboratory* hCG, quantitative (AH/AM Only) 11/15/24 Radiology* IR Nephrostomy Exchange 04/13/25 * IR Nephrostomy Exchange 12/30/24 * CT Renal 03/08/25 * NM Kidney Diuretic 03/08/25 * NM Kidney Diuretic 04/12/25 [facility] 06-03-2025 Discharge summary Date of Service 04/05/2025 Discharge Diagnosis Acute on chronic left-sided abdominal and flank pain Acute urinary traction Chronic left nephrostomy tube Anxiety/depression Acute on chronic cancer-related pain Hospital Course Patient is a 34-year-old female with PMHx Cervical cancer in remission, 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 She presented to [facility] on 04/04/2025 with complaints of left flank [...] by LIZY PHAM on 04/05/2025 05:25 PM [facility] CincinnatiJwytegrk33-90-4510 Palliative care Progress note Palliative care was [...] SANTINO SAWYER MD on 04/05/2025 01:49 PM [facility] CincinnatiTnzlpcqy50-80-6883 Urology Consult note Date of Service 04/05/25 [...] 15:44 EDT Digitally Signed by AURA BOWER APRN-KANDY on 04/05/2025 11:56 AM [facility] CincinnatiFccxpufw05-61-0230 Note Reason for Consultation Admission From: Home No qualifying data available. Skin Team Findings Vitals and Measurements T: 36.6 C (Oral) TMIN: 36.4 C (Temporal Artery) TMAX: 36.6 C (Oral) HR: 67 RR: 16 BP: 115/82 SpO2:97% HT: 165.1 cm WT: 52.3 kg BMI: [...] Paola Chiang RN on 04/05/2025 11:38 AM [facility] CincinnatiEoehjoko52-36-9716 History and physical note Date of Service [...] attention are all normal. Lab Results 04/04 WBC: 11.5 10^3/mcL High (04/04/25 14:55:00) RBC: [...] (04/04/25 14:55:00) UA Specimen Type: Not Given (06/02/25 14:55:00) UA Specimen Type: Clean Catch (04/04/25 [...] care was recommending that she go to [facility] urology for consideration of reconstructive surgery [...] RHIANNON ARTEAGA MD on 04/04/2025 09:33 PM [facility] CincinnatiSazrnwft07-99-9050 Note* Exam Date Time Procedure Performing Provider Status 04/04/25 7:18 PM EKG (ED) - CV NITA RUGGIERO MD; [facility] (Verified) ECG Final Report SINUS RHYTHM PROBABLE LEFT ATRIAL ENLARGEMENT This EKG was read and contributed directly to the care of the patient Electronic Signature: NITA RUGGIERO MD 04/04/2025 19:44:44 [facility] CincinnatiGfvtbyaa52-43-9556 Note* Exam Date Time Procedure Performing Provider Status 04/04/25 3:[address] Abdomen/Pelvis w/o Contrast Isaías BENSON MD; Auth (Verified) [id number] ORIGINAL EXAMINATION: CT OF THE ABDOMEN AND [...] Sign Date: 04/04/2025 4:10:13 PM Ordering Provider: [facility]06-02-2025 Evaluation + Plan noteExtracted from: [...] care was recommending that she go to [facility] urology for consideration of reconstructive surgery [...] Exchange Appointment Date:05/18/2025 11:20:00 AM Scheduled Provider: Location:[facility] Appointment Type:SO OV Follow Up Future Scheduled Tests Laboratory* hCG, quantitative (AH/AM Only) 11/15/24 Radiology* IR Nephrostomy Exchange 04/13/25 * IR Nephrostomy Exchange 12/30/24 * CT Renal 03/08/25 * NM Kidney Diuretic 03/08/25 * NM Kidney Diuretic 04/11/25 [facility] 05-13-2025 Hospital Discharge instructions Patient Education 03/15/2025 [...] worse Numbness or weakness in a leg [phone] [employer]. [address] [place] [address], [place] [address]. All rights reserved. This information is not intended as a substitute for professional medical care. Always follow yourhealthcare professional's instructions. Follow Up Care 03/15/2025 14:38:03 With:OLE PACE MD Address: [address] [place] [phone]- [phone] When:2-4 days [facility] 05-13-2025 Emergency department Discharge summary Discharge Instructions Thank you for allowing [facility] to assist you with your healthcare needs. The following is importantdischarge information regarding your hospital visit. What to Do Next Instructions from Your Care Team No qualifying data available. Post Acute Orders No qualifying data available. You Need to Schedule the Following Appointments Follow Up with OLE PACE MD When:Within 2-4 days Where:[address] [place] [phone]- [phone] Allergies Haldol Tongue swelling Oranges Tongue swelling, [...] worse Numbness or weakness in a leg [phone] [employer]. [address] [place] [address]. All rights reserved. This information is not intended as a substitute for professional medical care. Always follow yourhealthcare professional's instructions. Additional Information VACCINATE! IT SAVES LIVES! Members of the community who have not yet received the COVID-19 vaccine and would like to receive it can visit one of [facility] vaccine clinics. There are many vaccine clinic locations within the [facility]. For locations and available times, please visit www.gettheshot.coronavirus.[place].gov/. It is important to note that some COVID mobile vaccine clinics are held outdoors and may be canceled in rainy or stormy conditions. To learn more about pediatric vaccinations (ages 5-11), we invite you to visit the [facility] webpage. https://www.[facility].org/pages/8714-Qtfhy-Dijwaebhhhs-Iavksqmlgu-Acoro-Mto stions.htmlTo learn more about the COVID-19 vaccine, we invite you to visit the CDC website for a list of frequently asked questions. https://www.cdc.gov/coronavirus/2019-ncov/vaccines/faq.html [facility] Patient Portal Access Instructions: Stay connected with your healthcare team and access your personal medical information anytime with the [facility] Patient Portal. If you would like a full copy of your medical records please contact the [facility] Medical Records Department Friday through Friday between 8a.m. and 4:30p.m. Please follow the directions below to access the portal: 1.Access the email account you provided upon [facility].2.Look for an invitation email from [facility].3.Open the email and access the invitation link: Accept Invitation to [facility]4.Fill in the required quintero to create your account. Sign into [email or web address] with your username and password that you [...] you will allow to register on the [facility] Patient Portal for access to your information. You can also access the [facility] Patient Portal on the My Computer Works. Simply click on Health Records under BeyondTrust and then click on the Mogujie logo. HOW TO SAFELY DISPOSE OF PRESCRIPTION [...] Call your local pharmacy or go to http://Solidarium.TXCOM/[email or web address] to find one close to you.3.Make use of household items: Use cat litter or old coffee grounds to dispose medications if other options arenot available. Mix your drugs with these household products, seal them in an airtight container andthrow it into the garbage. Call [facility]: [phone] to be sure your drugs can be [...] aware that I should contact my doctor. Patient/Physical Therapy Aide Signature: Date/Time: Relationship to Patient: Witness Name/Signature: Date/Time: [facility]-2076 Emergency department Discharge summary Discharge Instructions Thank [...] PACE MD When:Within 2-4 days Where:[address] [facility] [place] [address]- [phone] Allergies Haldol Tongue swelling Oranges Tongue swelling, [...] worse Numbness or weakness in a leg [phone] [employer]. [address] [place] [address]. All rights reserved. This information is not intended as a substitute for professional medical care. Always follow yourhealthcare professional's instructions. Additional Information VACCINATE! IT SAVES LIVES! Members of the community who have not yet received the COVID-19 vaccine and would like to receive it can visit one of [facility] vaccine clinics. There are many vaccine clinic locations within the [facility]. For locations and available times, please visit www.gettheshot.coronavirus.[place].gov/. It is important to note that some COVID mobile vaccine clinics are held outdoors and may be canceled in rainy or stormy conditions. To learn more about pediatric vaccinations (ages 5-11), we invite you to visit the [facility] webpage. https://www.[facility].org/pages/0517-Nzwwz-Ldkbrordpbo-Jpcqyenaqe-Taymb-Sic stions.htmlTo learn more about the COVID-19 vaccine, we invite you to visit the CDC website for a list of frequently asked questions. https://www.cdc.gov/coronavirus/2019-ncov/vaccines/faq.html [facility] Patient Portal Access Instructions: Stay connected with your healthcare team and access your personal medical information anytime with the [facility] Patient Portal. If you would like a full copy of your medical records please contact the [facility] Medical Records Department Friday through Friday between 8a.m. and 4:30p.m. Please follow the directions below to access the portal: 1.Access the email account you provided upon [facility].2.Look for an invitation email from [facility].3.Open the email and access the invitation link: Accept Invitation to [facility]4.Fill in the required quintero to create your account. Sign into www.Fashion & You with your username and password that you [...] you will allow to register on the [facility] Patient Portal for access to your information. You can also access the [facility] Patient Portal on the Scripted joya. Simply click on Health Records under GreenVoltsData and then click on the Mogujie logo. HOW TO SAFELY DISPOSE OF PRESCRIPTION [...] Call your local pharmacy or go to http://bit.TXCOM/7Y5Ai5k to find one close to you.3.Make use of household items: Use cat litter or old coffee grounds to dispose medications if other options arenot available. Mix your drugs with these household products, seal them in an airtight container andthrow it into the garbage. Call [facility]: [phone] to be sure your drugs can be [...] aware that I should contact my doctor. Patient/Physical Therapy Aide Signature: Date/Time: Relationship to Patient: Witness Name/Signature: Date/Time: [id number] Note* Exam Date Time Procedure Performing Provider Status 03/15/25 5:[address] Abd/Pelvis w/ IV Contrast Only CESAR FIERRO DO; Auth (Verified) [id number] ORIGINAL EXAMINATION: CT OF THE ABDOMEN AND [...] Date: 03/15/2025 6:11:20 PM Ordering Provider: GUCCI [facility]05-07-2025 Hospital Discharge instructions Patient Education 03/09/2025 16:35:01 [...] lost, tell your healthcare provider right away. [phone] [employer]. [address] [place] [address], [place] [address]. All rights reserved. This information is not intended as a substitute for professional medical care. Always follow yourhealthcare professional's instructions. Follow Up Care 03/09/2025 12:12:49 With:GONZALEZ SANDERS MD, [facility] Address: [address] [place] [phone] When:2-4 days only if needed With:OLE PACE MD Address: [address] [place] [phone]- [phone] When:2-4 days [facility] 05-07-2025 Emergency department Discharge summary Discharge Instructions Thank you for allowing [facility] to assist you with your healthcare needs. The following is importantdischarge information regarding your hospital visit. Diagnosis from Today's Visit Flank pain What to Do Next Instructions from Your Care Team No qualifying data available. Post Acute Orders No qualifying data available. You Need to Schedule the Following Appointments Follow Up with GONZALEZ SANDERS MD, [facility]ITAL[facility] LiveOffice [facility] When:Within 2-4 days, only if needed Where:[address] [place] [phone]- [phone] Follow Up with OLE PACE MD When:Within 2-4 days Where:[address] [place] [address] [phone]- [phone] Allergies Haldol Tongue swelling Oranges Tongue swelling, Difficulty breathing penicillin Hives Medications Please ask your primary doctor or pharmacist before taking any other medication not listed, including over the counter drugs, herbal medications, vitamins and or supplements as they may interact [facility] medications. What How Much When Why [...] lost, tell your healthcare provider right away. [phone] [employer]. [address] [place] [address], [place] [address]. All rights reserved. This information is not intended as a substitute for professional medical care. Always follow yourhealthcare professional's instructions. Additional Information VACCINATE! IT SAVES LIVES! Members of the community who have not yet received the COVID-19 vaccine and would like to receive it can visit one of [facility] vaccine clinics. There are many vaccine clinic locations within the [facility]. For locations and available times, please visit www.gettheshot.coronavirus.[place].gov/. It is important to note that some COVID mobile vaccine clinics are held outdoors and may be canceled in rainy or stormy conditions. To learn more about pediatric vaccinations (ages 5-11), we invite you to visit the [facility] webpage. https://www.[facility].org/pages/9453-Wgbgz-Bzydxsdnhrd-Itftlyadod-Jrsxa-Drj stions.htmlTo learn more about the COVID-19 vaccine, we invite you to visit the CDC website for a list of frequently asked questions. https://www.cdc.gov/coronavirus/2019-ncov/vaccines/faq.html [facility] Patient Portal Access Instructions: Stay connected with your healthcare team and access your personal medical information anytime with the [facility] Patient Portal. If you would like a full copy of your medical records please contact the [facility] Medical Records Department Friday through Friday between 8a.m. and 4:30p.m. Please follow the directions below to access the portal: 1.Access the email account you provided upon [facility].2.Look for an invitation email from [facility].3.Open the email and access the invitation link: Accept Invitation to [facility]4.Fill in the required quintero to create your account. Sign into www.Fashion & You with your username and password that you [...] you will allow to register on the [facility] Patient Portal for access to your information. You can also access the [facility] Patient Portal on the My Computer Works. Simply click on Health Records under [employer] and then click on the Mogujie logo. HOW TO SAFELY DISPOSE OF PRESCRIPTION [...] Call your local pharmacy or go to http://Solidarium.TXCOM/7S5Yk4d to find one close to you.3.Make use of household items: Use cat litter or old coffee grounds to dispose medications if other options arenot available. Mix your drugs with these household products, seal them in an airtight container andthrow it into the garbage. Call [facility]: [phone] to be sure your drugs can be [...] aware that I should contact my doctor. Patient/Physical Therapy Aide Signature: Date/Time: Relationship to Patient: Witness Name/Signature: Date/Time: [facility] [id number] Note* Exam Date Time Procedure Performing Provider Status 03/09/25 3:[address] Renal SCOOBY JOSE MD; Auth (Verified) [id number] ORIGINAL EXAMINATION: CT RENAL 03/09/2025 3:54 pm [...] 03/09/2025 4:13:54 PM Ordering Provider: SHAHBAZ MAY [facility] CincinnatiNewylclz75-24-2892 Note* Exam Date Time Procedure Performing Provider Status 03/09/25 1:49 PM XR Chest 1 View MARTHA TRIVEDI MD; Auth (Verified) [id number] ORIGINAL EXAMINATION: ONE XRAY VIEW OF THE [...] 03/09/2025 2:07:59 PM Ordering Provider: SHAHBAZ RIZO [facility] CincinnatiHchdsvxu26-05-6530 Evaluation + Plan noteExtracted from: Title:IR Pre-Procedure [...] 02/14/2025 and can be found in the [facility] Electronic Medical Records (GitCafe). Shantelle Herrera PA-C Interventional Radiology Pager: [phone] IR dept: [phone] Available on [employer] Future Appointments Appointment Date:03/14/2025 01:30:00 PM Scheduled Provider:OLE PACE MD Location:[facility] Palliative Appointment Type:PALL OV Follow Up Appointment Date:05/18/2025 11:20:00 AM Scheduled Provider: Location:[facility] Appointment Type:SO OV Follow Up Future Scheduled Tests Laboratory* Clostridium difficile (PCR) 03/04/24 * Ova + Parasite Exam 03/04/24 * hCG, quantitative (AH/AM Only) 11/15/24 Radiology* IR Nephrostomy Exchange 12/30/24 [facility] 04-16-2025 Hospital Discharge instructions Patient Education 02/16/2025 10:11:22 Radiology- Nephrostomy/Nephroureteral Tube Exchange 12/26/2022 (Custom) [place] Nephrostomy/Nephroureteral Tube Exchange Discharge Instructions Interventional Radiology [facility] Imaging Services [address] [place] [address] The procedure that you had done today [...] the feeling of the need to urinate. Mimd-tnv-workwcp pain medication should be used for pain [...] the gauze. Supplies may be obtained at: [facility] [address] [facility] [address] [facility] Any questions or concerns, please contact your physician or Interventional Radiology at [phone] from 8-4:30pm Friday-Friday. If you do not have a follow up appointment scheduled at the time of discharge, please call Interventional Radiology at the number listed above. Follow Up Care 12/22/2024 11:44:53 With:PINA PANTOJA APRN-EMPLOYER RELATIONS REPRESENTATIVE Address: [address] [place] [address] Gyne[place] [address]- [phone] When: Unknown Comments:Schedule appointment as soon as possible [facility] 04-16-2025 Note* Bita Frias: SIGN, AUTHOR, SIGN, AUTHOR, PERFORM Event Display: IR Procedure Record Authored Date: [id number] IR Procedure Record Summary Primary Physician: Finalized Date/Time: 02/16/25 09:07:22 Pt. Name: LALY NAVAS /Sex: 1990 Female Med Rec #: [id number] Physician: Financial #: [id number] Pt. Type: S Room/Bed: 0130/A Admit/Disch: 02/16/25 [...] (SN) (SN) (SN) Last Modified By: Bita rFias Elizabeth M Chaddock, Elizabeth M 02/16/25 08:49:03 02/16/25 08:49:03 02/16/25 08:49:03 Entry 4 Entry 5 Entry 6 Case Attendee Bita Frias JEFFREY MD EYRING, ERIK S BRIM GREASER OPERATOR-CONCESSION STAND ATTENDANT Role Performed Auto Parker 1 Anesthesiologist CONCESSION STAND ATTENDANT Details Time In 02/16/25 08:10:00 02/16/25 08:10:00 [...] 12 mL Medication CONTRAST ISOVUE 300/30ML 10/CA 736104 Radiology Flouroscopy Fluoroscopy Used? Yes Fluoro Dose (mGy) 3 Fluoro Time 1.2 min Radiology Local Local Used? Yes Local Type: lido 2% Local Dose 3 ml Radiology Procedure Site Site/Location lt flank Site Condition No complications Suture 2.0 Ethibond Suture Dressing Type Gauze sponge 4 X 4, Bioclusive 4 X 5 Technologist Notes [id number] lt neph tube exchange Last Modified By: [...] marked, Present for Time Out Padmini [facility] Rad Relevant images and Tech, Capo, Blaine results are properly Altagracia Boyce Elizabeth labeled and LACHO Metz JEFFREY MD, appropriately FRED ZAYAS displayed, Alcohol BRIM GREASER OPERATOR-OLGA, Marisa Gastelum based prep dry RN Instrument [...] Radiology - Action Plan Outcomes Met? Yes Accounting Consultant Marisa Gastelum RN Completing Procedure Plan Last Modified By: Bita Frias 02/16/25 08:35:44 Case Comments <None> Finalized By: Bita Frias Document Signatures Signed By: Bita Frias 02/16/25 09:05 Bita Frias 02/16/25 09:07 [facility] 04-16-2025 Summary of episode note Discharge Instructions Thank you for allowing [facility] to assist you with your healthcare needs. The following is importantdischarge information regarding your hospital visit. Your Care Team OLE PACE MD What to do next Scheduled Follow-Up Appointments Appointment Type When With Where Contact Information StatusPALL OV Follow Up 03/14/2025 01:30 PM EDT OLE PACE MD [facility] Confirmed SO OV Follow Up 05/18/2025 11:20 AM EDT [facility] [address] [place] [address], [place] [phone] Confirmed Follow Up Appointments Follow Up with PINA PANTOJA APRN-KANDY Where:[address] [place] [address] [place] [phone]- [phone] Additional Information: Schedule appointment as soon as [...] medication providers or retail pharmacies. Education Materials [place] Nephrostomy/Nephroureteral Tube Exchange Discharge Instructions Interventional Radiology [facility] Imaging Services [address] [facility] [address] The procedure that you had done today [...] the feeling of the need to urinate. Hxvk-por-jfbdtil pain medication should be used for pain [...] the gauze. Supplies may be obtained at: [facility] [address] [facility] [address] [facility] Any questions or concerns, please contact your physician or Interventional Radiology at [phone] from 8-4:30pm Friday-Friday. If you do not have a follow up appointment scheduled at the time of discharge, please call Interventional Radiology at the number listed above. Additional Information VACCINATE! IT SAVES LIVES! Members of the community who have not yet received the COVID-19 vaccine and would like to receive it can visit one of [facility] vaccine clinics. There are many vaccine clinic locations within the [facility]. For locations and available times, please visit https://gettheshot.coronavirus.[place].gov/. It is important to note that some COVID mobile vaccine clinics are held outdoors and may be canceled in rainy or stormy conditions. To learn more about pediatric vaccinations (ages 5-11), we invite you to visit the [facility] webpage. https://www.akron[facility]rras.org/pages/9728-Uuhri-Oahmiwngzxd-Dnlgrwbfjm-Feztl-Bqw stions.htmlTo learn more about the COVID-19 vaccine, we invite you to visit the CDC website for a list of frequently asked questions.https://www.cdc.gov/coronavirus/2019-ncov/vaccines/faq.html [facility] Patient Portal Access Instructions: Stay connected with your healthcare team and access your personal medical information anytime with the [facility] Patient Portal. Please follow the directions below to create your [facility] account: 1.Access the email account you provided upon registration to the hospital/physician office.2.Look for an invitation email from [facility].3.Open the email and access the invitation link: AcceptInvitation to [facility].4.Fill in the required quintero to create your account. To access your account, visit [employer] You/Masabihart. Click the blue button labeled Access Patient [...] who you will allowto register on the [facility] Patient Portal for access to your information. You can also access the [facility] Patient Portal on the Mogujie Anywhere joya. Simply click on Patient Portal and then log into your account. If you would like to receive a full copy of your medical records, please contact the [facility] Medical Records Department by calling [phone], Friday through Friday between 8 a.m. and [...] Call your local pharmacy or go to http://Solidarium.TXCOM/5M4Le1k to find one close to you.3.Make use of household items: Use cat litter or old coffee grounds to dispose medications if other options arenot available. Mix your drugs with these household products, seal them in an airtight container andthrow it into the garbage. Call [facility]: [phone] to be sure your drugs can be [...] aware that I should contact my doctor. Patient/Physical Therapy Aide Signature: Date/Time: Relationship to Patient: Witness Name/Signature: Date/Time: [id number] Note* Exam Date Time Procedure Performing Provider Status 02/16/25 9:09 AM IR Nephrostomy Exchange MADELINE APARICIO; Auth (Verified) [id number] ORIGINAL PROCEDURE: 1. Percutaneous left nephrostomy tube exchange with fluoroscopy CLINICAL STATEMENT: History of cervical cancer with left ureteral obstruction VETERINARY BACTERIOLOGIST: Tadeo Leija PA-C MATERIALS: 12 Fr X [...] using 2 identifiers, confirming site and side. Drive Away Driver image with contrast injection demonstrates stable appearance [...] Date: 02/16/2025 4:47:28 PM Ordering Provider: PINA [facility]04-16-2025 Note IR Procedure Record Summary Primary Physician: Finalized Date/Time: 02/16/25 09:07:22 Pt. Name: LALY NAVAS/Sex: 1990 Female Med Rec #: [id number] Physician: Financial #: [id number] Pt. Type: S Room/Bed: [facility]/A Admit/Disch: 02/16/25 06:14:49 - Institution: Allergies identified [...] Bita Frias JEFFREY MD EYRING, ERIK S APRN-CONCESSION STAND ATTENDANT Role Performed Auto Parker 1 Anesthesiologist CONCESSION STAND ATTENDANT Details Time In 02/16/25 08:10:00 02/16/25 08:10:00 [...] 12 mL Medication CONTRAST ISOVUE 300/30ML 10/CA 777540 Radiology Flouroscopy Fluoroscopy Used? Yes Fluoro Dose (mGy) 3 Fluoro Time 1.2 min Radiology Local Local Used? Yes Local Type: lido 2% Local Dose 3 ml Radiology Procedure Site Site/Location lt flank Site Condition No complications Suture 2.0 Ethibond Suture Dressing Type Gauze sponge 4 X 4, Bioclusive 4 X 5 Technologist Notes [id number] lt neph tube exchange Last Modified By: [...] Blaine results are properly L, Bita Frias and LACHO Metz JEFFREY MD, appropriately FRED ZAYAS displayed, Alcohol BRIM GREASER OPERATOR-CONCESSION STAND ATTENDANT, Marisa Gastelum based prep dry RN Instrument [...] Radiology - Action Plan Outcomes Met? Yes Accounting Consultant Marisa Gastelum RN Completing Procedure Plan Last Modified By: Bita Frias 02/16/25 08:35:44 Case Comments Finalized By: Bita Frias Document Signatures Signed By: Bita Frias 02/16/25 09:05 Bita Frias 02/16/25 09:07 [facility]qcrcp94-51-7564 Procedure note IR Brief Post Procedure Note [...] follow. Tadeo Leija PA-C Interventional Radiology Pager: [phone] IR dept: [id number] Available on [employer] Digitally Signed by TADEO LEIJA PA-C on 02/16/2025 09:00 AM [facility]ff[facility]ri[facility]4415 Anesthesiology Consult note Patient: LALY NAVAS Age: [...] for anxiety, # 90 tab(s),2 Refill(s), Pharmacy: [facility] Palliative care patient THO (generalized anxiety disorder), 167.6, cm, 12/22/24 8:11:00 EST, Height, 53.6, kg, ... Lexapro 20 mg oral tablet: Dose : 20 mg = 1 tab(s), Oral, qDay, # 30 tab(s), 5 Refill(s), Pharmacy:[facility] 167.6, cm, 12/22/24 8:11:00 EST, Height, kg, 12/22/24 8:11:00 EST,Dosing Weight ondansetron 4 mg oral tablet: Dose : 4 mg = 1 tab(s), Oral, BID, TAKE ONE TABLET BY MOUTH EVERY 8 HOURS NEEDED FOR NAUSEA AND VOMITING, # 60 tab(s), 2 Refill(s), Pharmacy: [facility] 167.6, cm, 11/15/24 8:43:00 EST, Height, kg, 10/13/24 6:49:00 EST, Dosing... oxyCODONE 5 mg oral tablet ( IMMEDIATE release ): Dose : 10 mg = 2 tab(s), Oral, q6h, PRN for pain,# 240 tab(s), 0 Refill(s), Pharmacy: [facility] Cervical ca Cancer related pain, 167.6, cm, [...] Problem list: Medical Anxiety / SNOMED CT 07876528 / Confirmed Asthma / SNOMED CT 642170505 / Confirmed Decreased appetite / SNOMED CT 896340788 / Confirmed Dehydration / SNOMED CT 21755974 / Confirmed Bilateral flank pain / SNOMED CT 052669635 / Confirmed History of chemotherapy / SNOMED CT 0268249278 / Confirmed Hx of cervical cancer / SNOMED CT 4881118611 / Confirmed History of radiation therapy / SNOMED CT 2355592580 / Confirmed Hydronephrosis, left / SNOMED CT 09208488 / Confirmed Acute kidney injury / SNOMED CT 35074059 / Confirmed Left flank pain / SNOMED CT 905413250 / Confirmed Cervical cancer / SNOMED CT 808576848 / Confirmed Moderate protein-calorie malnutrition / SNOMED CT 003632725 / Confirmed Nausea and vomiting / SNOMED CT 72018172 / Confirmed Cancer related pain / SNOMED CT 0580004550 / Confirmed DVT prophylaxis / SNOMED CT 467666104 / Confirmed Palliative care encounter / SNOMED CT 874946816 / Confirmed Premature menopause / SNOMED CT 2699689350 / Confirmed Pyelonephritis / SNOMED CT 37574154 / Confirmed Nephrostomy status / SNOMED CT 975416460 / Confirmed Obstructive uropathy / SNOMED CT 79099357 / Confirmed Resolved: Chronic kidney disease, stage 3 (moderate) / SNOMED CT 4331003668 Resolved: Port-A-Cath in place / SNOMED CT 1418882307 Resolved: History of COVID-19 / SNOMED CT 0491915022 Resolved: Hydronephrosis of left kidney / SNOMED CT 10354212 Resolved: ESBL (extended spectrum beta-lactamase) producing bacteria infection / SNOMED CT 7856888992 Resolved: ESBL (extended spectrum beta-lactamase) producing bacteria infection / SNOMED CT 1157311175 Resolved: Cervicitis / SNOMED CT 503678713 Resolved: Mass of cervix / SNOMED CT 761560169 Resolved: Encounter for antineoplastic chemotherapy / SNOMED CT 364726227 Resolved: Tinnitus / SNOMED CT 434254963 Resolved: Complicated UTI (urinary tract infection) / SNOMED CT 289550493 Canceled: Cervical cancer / SNOMED CT 7518921697 Canceled: Dysuria / SNOMED CT 10445763 Canceled: Flank pain / SNOMED CT 681704947 Canceled: Hydronephrosis / SNOMED CT 44097666 Canceled: Cervical cancer / SNOMED CT 324549764 Canceled: Cervical ca / SNOMED CT 527162052 Canceled: Secondary amenorrhea / SNOMED CT 983524144 Canceled: Nephrostomy status / SNOMED CT 467857523, Active Problems (34) Acid reflux Acute kidney [...] ESBL (extended spectrum beta-lactamase) producing bacteria infection (6067119273): Onset on 02/23/2023 at 32 years. Resolved on 05/07/2023 at 32 years. ESBL (extended spectrum beta-lactamase) producing bacteria infection (2158712789): Onset on 08/09/2022 at 31 years. Resolved on 01/02/2023 at 32 years. Comments: 01/02/2023 EST 10:02 JAMAL Haynes Removed ESBL disease alert from 08/2022 per infection control protocol on 01/02/23. Mass of cervix (404937190): Resolved. Chronic kidney disease, stage 3 (moderate) (1852091400): Resolved. Hydronephrosis of left kidney (85807835): Resolved. Cervicitis (425111707): Resolved. Encounter for antineoplastic chemotherapy (136097077): Resolved. Port-A-Cath in place (7334843686): Resolved. Tinnitus (944505555): Resolved. Complicated UTI (urinary tract infection) (886748216): Resolved. History of COVID-19 (3845262664): Resolved. Family History: Cancer Sister COPD - Chronic obstructive pulmonary disease Mother Father Kidney stone Mother Asthma Mother Breast cancer Mother Hypertension Mother Heart disease Mother Substance abuse Father Alcohol abuse Father Stroke Grandparent Father Malignant tumor of ovary Sister Heart attack Mother Diabetes Grandparent Procedure history: Nephrostomy using fluoroscopic guidance (2254575733) on 06/16/2024 at 33 Years. Comments: 06/21/2024 11:46 Fany Beard LPN left JJ stent ([id number]) on 06/16/2024 at 33 Years. Comments: 06/21/2024 11:47 Fany Beard LPN left Nephrostomy tube (538200593) on 10/05/2023 at 32 Years. Comments: 11/19/2023 9:37 Fany Sanchez LPN left side Nephrostomy with tube drainage (56904437) in the month of 07/2023 at 32 Years. Comments: 06/13/2020 10:09 JAMAL Guaman left Nephrostomy with tube drainage (33459627) on 01/10/2021 at 30 Years. Cannulation of Portacath (831297927) in 2020 at 30 Years. Comments: 06/13/2020 10:09 JAMAL Guaman right JJ stent ([id number]) on 11/15/2020 at 29 Years. Radiation (834751988) in the month of 06/2020 at 29 Years. Comments: 06/26/2020 6:12 JAMAL Braswell A via tandems and oviod X2 Cervical biopsy (43865455) in 2019 at 29 Years. Comments: 04/12/2020 18:25 Eri Conte RN pt states she had a cervical biopsy done on 04/07/2020 at [facility] for a cervical mass Tumor cells, benign (45330868) in 2002 at 11 Years. Comments: 04/12/2020 18:07 BRANDEET - Eri Contreras RN 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 done at [facility] in [place] Social History: Social & Psychosocial Habits Alcohol [...] Signs (last 24 hrs) Last Charted Temp Dmbbncko87.9 DegC (FEB 16 06:37) WRH376 mmHg (FEB 16 06:37) DBP79 mmHg (FEB 16 06:37) Measurements from flowsheet : Measurements 02/16/2025 6:37 EDT Height 167.6 cm Height in inches 66 inch(es) Admission Weight 110.7 kg Weight Lbs 243.5 lb Weight Method Actual [place] Body Weight 59.26 kg Type of Scale [...] Documentation reviewed: Current records. Assessment and Plan [place] [employer] Anesthesiologists (ASA) physical status classification: Class II. Anesthetic Preoperative Plan Premedication: intravenous. Anesthetic technique: General. Induction: intravenously. Maintenance airway: Oral endotracheal tube. Postoperative pain management: Per surgeon. Informed consent: signed by patient. Digitally Signed by OLE MONK MD on 02/16/2025 08:05 AM [facility]Aqdbtyeh69-80-3293 History and physical note IR PREPROCEDURE H&P [...] 02/14/2025 and can be found in the [facility] ([facility]). Shantelle Herrera PA-C Interventional Radiology Pager: [phone] IR dept: x [phone] Available on [employer] Digitally Signed by SHANTELLE HERRERA PA-C on 02/16/2025 07:50 AM Digitally Signed by MADELINE APARICIO MD on 02/16/2025 08:12 AM [facility] CincinnatiWyzfallr29-30-6356 Hospital Discharge instructions Patient Education 12/22/2024 12:16:43 Radiology- Nephrostomy/Nephroureteral Tube Exchange 12/26/2022(CUSTOM) [place] Nephrostomy/Nephroureteral Tube Exchange Discharge Instructions Interventional Radiology [facility] Imaging Services [address] [address] The procedure that you had done today [...] the feeling of the need to urinate. Flzu-app-vnotrtx pain medication should be used for pain [...] the gauze. Supplies may be obtained at: [facility] [address] [facility] [address] [facility] Any questions or concerns, please contact your physician or Interventional Radiology at [phone] from 8-4:30pm Friday-Friday. If you do not have a follow up appointment scheduled at the time of discharge, please call Interventional Radiology at the number listed above. 12/22/2024 12:16:34 Radiology- Port Removal 08/13/2024(CUSTOM) [place] Port Removal Discharge Instructions Interventional Radiology [facility] Imaging Services [address] [address] Your physician has requested that you have [...] for 7 days. Special instructions: PAIN CONTROL: Swwu-sua-sshwhnc pain medication should be used for pain [...] instruction below: 8:00 am- 5:00 pm call [phone] After 24 hours, contact the physician who ordered this procedure for you. Additional Instructions: Follow Up Care 12/09/2024 13:25:55 With:OLE PACE MD Address: [address] [place] [phone] When: Unknown Comments:Call with any questions or concerns [facility] 02-19-2025 Evaluation + Plan noteExtracted from: Title:Preprocedure [...] 12/13/24 and can be found in the [facility] ([facility]). Lacey Loera PA-C Interventional Radiology IR Dept [phone] Available on [employer] Future Appointments Appointment Date:01/05/2025 12:30:00 PM Scheduled Provider: Location:IR Appointment Type:IR Procedure Follow Up Appointment Date:01/17/2025 03:00:00 PM Scheduled Provider:OLE PACE MD Location:[facility] Palliative Appointment Type:PALL OV Follow Up Appointment Date:02/16/2025 08:00:00 AM Scheduled Provider: Location:IR Appointment Type:IR Nephrostomy Exchange Appointment Date:05/18/2025 11:20:00 AM Scheduled Provider: Location:[facility] Appointment Type:SO OV Follow Up Future Scheduled Tests Laboratory* Clostridium difficile (PCR) 03/04/24 * Ova + Parasite Exam 03/04/24 * hCG, quantitative (AH/AM Only) 11/15/24 Radiology* IR Nephrostomy Exchange 02/16/25 * IR Procedure Follow Up 01/05/25 [facility] 02-19-2025 Summary of episode note Discharge Instructions Thank you for allowing [facility] to assist you with your healthcare needs. The following is importantdischarge information regarding your hospital visit. Your Care Team OLE PACE MD What to do next Scheduled Follow-Up Appointments Appointment Type When With Where Contact Information StatusIR Procedure Follow Up 01/05/2025 12:30 PM EST IR Confirmed PALL OV Follow Up 01/17/2025 03:00 PM EDT OLE PACE MD [facility] Confirmed IR Nephrostomy Exchange 02/16/2025 08:00 AM EDT IR Confirmed SO OV Follow Up 05/18/2025 11:20 AM EDT [facility] [address] [place] [phone] Confirmed Follow Up Appointments Follow Up with OLE PACE MD Where:[address] [place] [address] [place] [address] [phone] Additional Information: Call with any questions or [...] medication providers or retail pharmacies. Education Materials [place] Nephrostomy/Nephroureteral Tube Exchange Discharge Instructions Interventional Radiology [facility] Services [address] [place] [address] The procedure that you had done today [...] the feeling of the need to urinate. Cciq-ebs-uamvfci pain medication should be used for pain [...] the gauze. Supplies may be obtained at: [facility] [address] [facility] [address] [facility] Any questions or concerns, please contact your physician or Interventional Radiology at [phone] from 8-4:30pm Friday-Friday. If you do not have a follow up appointment scheduled at the time of discharge, please call Interventional Radiology at the number listed above. [place] Port Removal Discharge Instructions Interventional Radiology [facility] [address] [place] [address] Your physician has requested that you have [...] for 7 days. Special instructions: PAIN CONTROL: Dcrd-tbu-fedifwf pain medication should be used for pain [...] instruction below: 8:00 am- 5:00 pm call [phone] After 24 hours, contact the physician who ordered this procedure for you. Additional Instructions: Additional Information VACCINATE! IT SAVES LIVES! Members of the community who have not yet received the COVID-19 vaccine and would like to receive it can visit one of [facility] vaccine clinics. There are many vaccine clinic locations within the [facility]. For locations and available times, please visit [email or web address] It is important to note that some COVID mobile vaccine clinics are held outdoors and may be canceled in rainy or stormy conditions. To learn more about pediatric vaccinations (ages 5-11), we invite you to visit the [facility] webpage. [email or web address] learn more about the COVID-19 vaccine, we invite you to visit the CDC website for a list of frequently asked questions.https://www.cdc.gov/coronavirus/2019-ncov/vaccines/faq.html [facility] Patient Portal Access Instructions: Stay connected with your healthcare team and access your personal medical information anytime with the [facility] Patient Portal. Please follow the directions below to create your [facility] account: 1.Access the email account you provided upon registration to the hospital/physician office.2.Look for an invitation email from [facility].3.Open the email and access the invitation link: AcceptInvitation to [facility].4.Fill in the required quintero to create your account. To access your account, visit [employer]ogujieOneCcarmina. Click the blue button labeled Access Patient [...] who you will allowto register on the [facility] Patient Portal for access to your information. You can also access the [facility] on the [facility] joya. Simply click on Patient Portal and then log into your account. If you would like to receive a full copy of your medical records, please contact the [facility] Medical Records Department by calling [phone], Friday through Friday between 8 a.m. and [...] Call your local pharmacy or go to [email or web address] to find one close to you.3.Make use of household items: Use cat litter or old coffee grounds to dispose medications if other options arenot available. Mix your drugs with these household products, seal them in an airtight container andthrow it into the garbage. Call [facility]: [phone] to be sure your drugs can be [...] aware that I should contact my doctor. Patient/Physical Therapy Aide Signature: Date/Time: Relationship to Patient: Witness Name/Signature: Date/Time: [facility] Cincinnati[facility]kroab58-84-1199 Note* Exam Date Time Procedure Performing Provider Status 12/22/24 11:11 AM IR Nephrostomy Exchange GERDA RANDHAWA DO; Auth (Verified) [id number] ORIGINAL PROCEDURE: IR NEPHROSTOMY TUBE CHANGE 12/22/2024 [...] Guidewires advanced over which previously placed 12 Mongolian nephrostomy tube was exchanged for a new 12 Mongolian nephrostomy tube. Tip curled within left renal [...] the procedure including risks, benefits, and alternatives. Eldred protocol was observed. Sterile gowns, masks, hats and gloves utilized for maximal sterile barrier. FINDINGS: Antegrade nephrostogram demonstrates satisfactory position of previously placed left nephrostomy tube. Postprocedure images demonstrate new nephrostomy catheter with tip curled within decompressed left renal pelvis. No complication suggested. IMPRESSION: Maintenance exchange of previously placed left nephrostomy tube for new 12 Mongolian nephrostomy catheter via previously established tract with tip curled in decompressed left renal pelvis. No complication suggested. Interpreted by: Clotilde Randhawa DO Preliminary Report By: Clotilde Randhawa DO Electronically signed By Clotilde Randhawa DO Dictated Date: 12/22/2024 3:54:55 PM Prelim Date: 12/22/2024 3:57:35 PM Sign Date: 12/22/2024 3:57:35 PM Ordering Provider: [facility]02-19-2025 Procedure note Date of Service INTERVENTIONAL RADIOLOGY POST PROCEDURE NOTE Pre-Procedure Diagnosis: [left nephrostomy tube maintenance exchange, iv access port removal / no further need for port] Post Procedure Diagnosis: Same. Polisher Dial: Dr. Clotilde Randhawa DO Procedure: [left nephrostomy [...] CLOTILDE RANDHAWA DO on 12/22/2024 11:10 AM [facility]Kjrcfdkb70-80-0764 Note* Exam Date Time Procedure Performing Provider Status 12/22/24 10:40 AM IR Port Removal CLOTILDE RANDHAWA DO; Auth (Verified) [id number] ORIGINAL PROCEDURE: IR REMOVAL OF TUNNELED CATHETER [...] the procedure including risks, benefits, and alternatives. Eldred protocol was observed. Sterile gowns, masks, hats [...] 12/22/2024 3:59:55 PM Ordering Provider: NASRIN ISABEL [facility] CincinnatiLulxzakq51-56-4556 History and physical note IR PREPROCEDURE H&P [...] 12/13/24 and can be found in the [facility] ([employer]). Lacey Loera PA-C Interventional Radiology IR Dept [phone] Available on [employer] Digitally Signed by LACEY LOERA PA-C on 12/22/2024 09:52 AM Digitally Signed by CLOTILDE RANDHAWA DO on 12/22/2024 12:44 PM [facility] CincinnatiAvsvrljz92-94-9198 Anesthesiology Consult note Patient: LALY NAVAS Age: [...] Problem list: Medical Anxiety / SNOMED CT 22716779 / Confirmed Asthma / SNOMED CT 009025721 / Confirmed Decreased appetite / SNOMED CT 670950221 / Confirmed Dehydration / SNOMED CT 78727051 / Confirmed Bilateral flank pain / SNOMED CT 734776976 / Confirmed History of chemotherapy / SNOMED CT 6356728913 / Confirmed Hx of cervical cancer / SNOMED CT 2072987976 / Confirmed History of radiation therapy / SNOMED CT 9264465073 / Confirmed Hydronephrosis, left / SNOMED CT 40495745 / Confirmed Acute kidney injury / SNOMED CT 70008420 / Confirmed Left flank pain / SNOMED CT 419948443 / Confirmed Cervical cancer / SNOMED CT 015893745 / Confirmed Moderate protein-calorie malnutrition / SNOMED CT 725193020 / Confirmed Nausea and vomiting / SNOMED CT 74699058 / Confirmed Cancer related pain / SNOMED CT 9819835865 / Confirmed DVT prophylaxis / SNOMED CT 036364541 / Confirmed Palliative care encounter / SNOMED CT 999413177 / Confirmed Premature menopause / SNOMED CT 7851782585 / Confirmed Pyelonephritis / SNOMED CT 25228407 / Confirmed Nephrostomy status / SNOMED CT 687196545 / Confirmed Obstructive uropathy / SNOMED CT 15823100 / Confirmed Resolved: Chronic kidney disease, stage 3 (moderate) / SNOMED CT 8005511333 Resolved: Port-A-Cath in place / SNOMED CT 0696776854 Resolved: History of COVID-19 / SNOMED CT 4403064331 Resolved: Hydronephrosis of left kidney / SNOMED CT 85236506 Resolved: ESBL (extended spectrum beta-lactamase) producing bacteria infection / SNOMED CT 2541879335 Resolved: ESBL (extended spectrum beta-lactamase) producing bacteria infection / SNOMED CT 4023442196 Resolved: Cervicitis / SNOMED CT 014953597 Resolved: Mass of cervix / SNOMED CT 351635618 Resolved: Encounter for antineoplastic chemotherapy / SNOMED CT 259959105 Resolved: Tinnitus / SNOMED CT 550314449 Resolved: Complicated UTI (urinary tract infection) / SNOMED CT 134736677 Canceled: Cervical cancer / SNOMED CT 9727546976 Canceled: Dysuria / SNOMED CT 85642931 Canceled: Flank pain / SNOMED CT 145397881 Canceled: Hydronephrosis / SNOMED CT 76202307 Canceled: Cervical cancer / SNOMED CT 330479266 Canceled: Cervical ca / SNOMED CT 014539738 Canceled: Secondary amenorrhea / SNOMED CT 427000449 Canceled: Nephrostomy status / SNOMED CT 585179615, Active Problems (33) Acid reflux Acute kidney [...] ESBL (extended spectrum beta-lactamase) producing bacteria infection (7411543843): Onset on 02/23/2023 at 32 years. Resolved on 05/07/2023 at 32 years. ESBL (extended spectrum beta-lactamase) producing bacteria infection (0054080640): Onset on 08/09/2022 at 31 years. Resolved on 01/02/2023 at 32 years. Comments: 01/02/2023 EST 10:02 JAMAL Haynes Removed ESBL disease alert from 08/2022 per infection control protocol on 01/02/23. Mass of cervix (050383790): Resolved. Chronic kidney disease, stage 3 (moderate) (2116168345): Resolved. Hydronephrosis of left kidney (40464317): Resolved. Cervicitis (794646860): Resolved. Encounter for antineoplastic chemotherapy (189879919): Resolved. Port-A-Cath in place (0662737355): Resolved. Tinnitus (416255976): Resolved. Complicated UTI (urinary tract infection) (030009728): Resolved. History of COVID-19 (5871153264): Resolved. Procedure history: Nephrostomy using fluoroscopic guidance (9581944253) on 06/16/2024 at 33 Years. Comments: 06/21/2024 11:46 Fany Beard LPN left JJ stent ([id number]) on 06/16/2024 at 33 Years. Comments: 06/21/2024 11:47 Fany Beard LPN left Nephrostomy tube ([id number]) on 10/05/2023 at 32 Years. Comments: 11/19/2023 9:37 EST - Ruelas, Fany L FLARE BREAKER left side Nephrostomy with tube drainage (01863807) in the month of 07/2023 at 32 Years. Comments: 06/13/2020 10:09 JAMAL Guaman left Nephrostomy with tube drainage (62983633) on 01/10/2021 at 30 Years. Cannulation of Portacath (845772963) in 2020 at 30 Years. Comments: 06/13/2020 10:09 JAMAL Guaman right JJ stent ([id number]) on 11/15/2020 at 29 Years. Radiation (182535926) in the month of 06/2020 at 29 Years. Comments: 06/26/2020 6:12 JAMAL Braswella A via tandems and oviod X2 Cervical biopsy (74368045) in 2019 at 29 Years. Comments: 04/12/2020 18:25 Eri Conte RN pt states she had a cervical biopsy done on 04/07/2020 at [facility] for a cervical mass Tumor cells, benign (17753899) in 2001 at 11 Years. 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 done at [facility] in [place] Social History: Social & Psychosocial Habits Alcohol [...] vaping - 08/06/2024 07:22 JAMAL Dominguez Home/Environment 12/22/2024Risk Assessment: No Risk 12/22/2024 Living [...] Signs (last 24 hrs) Last Charted Temp Jnnuowqf94.4 DegC (DEC 22 08:08) Heart Rate ApicalL 57 bpm (DEC 22 08:08) BEL078 mmHg (DEC 22 08:08) DBP80 mmHg (DEC 22 08:08) Measurements from flowsheet : Measurements 12/22/2024 8:08 EST Height 167.6 cm Height in inches 66 inch(es) Admission Weight 53.6 kg Weight Lbs 117.9 lb [place] Body Weight 59.26 kg Admission Body Mass [...] Documentation reviewed: Current records. Assessment and Plan [place] [employer] of Anesthesiologists (ASA) physical status classification: Class III. Anesthetic Preoperative Plan Premedication: intravenous. Anesthetic technique: General. Induction: intravenously. Maintenance airway: Oral endotracheal tube. Postoperative pain management: Per surgeon. Risks discussed: nausea, vomiting, sore throat, dental injury, hypotension, allergic reaction, serious complications. Informed consent: signed by patient. Digitally Signed by NOEMI AYALA MD on 12/22/2024 09:03 AM [facility] CincinnatiQygzuvde06-57-6950 Hospital Discharge instructions Patient Education 08/11/2024 12:13:30 Radiology- Nephrostomy/Nephroureteral Tube Exchange 12/26/2022(CUSTOM) [place] Nephrostomy/Nephroureteral Tube Exchange Discharge Instructions Interventional Radiology [facility] Imaging Services [address] [place] [address] The procedure that you had done today [...] the feeling of the need to urinate. Omng-haq-zafksie pain medication should be used for pain [...] may be obtained at: [facility] [address] [facility] [address] [facility] Any questions or concerns, please contact your physician or Interventional Radiology at [phone] from 8-4:30pm Friday-Friday. If you do not have a follow up appointment scheduled at the time of discharge, please call Interventional Radiology at the number listed above. [facility] 10-09-2024 Evaluation + Plan noteExtracted from: Title:IR [...] 07/19/2024 and can be found in the [facility] ([employer]). Sky Newsome PA-C Interventional Radiology Pager: [phone] IR dept: x [phone] Available on [employer] Future Appointments Appointment Date:08/16/2024 09:00:00 AM Scheduled Provider:OLE PACE MD Location:[facility] Appointment Type:PALL OV Follow Up Future Scheduled Tests Laboratory* Clostridium difficile (PCR) 03/04/24 * Ova + Parasite Exam 03/04/24 Radiology* IR Nephrostomy Tube Change Lt Guide 09/04/23 [facility] 10-09-2024 Note* Juana Wilhelm RN: SIGN, AUTHOR, SIGN, AUTHOR, PERFORM Event Display: IR Procedure Record Authored Date: [id number] IR Procedure Record Summary Primary Physician: Finalized Date/Time: 08/11/24 10:35:27 Pt. Name: LALY NAVAS D.O.B./Sex: 1990 Female Med Rec #: [id number] Physician: Financial #: [id number] Pt. Type: S Room[facility]B Admit/Disch: 08/11/24 07:53:56 - Institution: Allergies identified [...] Attendee GARTH GOSS MD, Brandon L Allen, Make Up Operator Helper Grace Role Performed Procedure Surgeon Scrub Technologist [...] Case Attendee Juana Wilhelm RN, ADAM A APRN-CONCESSION STAND ATTENDANT Role Performed Procedure Nurse CONCESSION STAND ATTENDANT Details Time In 08/11/24 09:58:00 08/11/24 09:58:00 [...] Radiology - Action Plan Outcomes Met? Yes Accounting Consultant Juana Wilhelm RN Completing Procedure Plan Last Modified By: Juana Wilhelm RN 08/11/24 09:41:12 Case Comments <None> Finalized By: Juana Wilhelm RN Document Signatures Signed By: Juana Wilhelm RN 08/11/24 10:35 Juana Wilhelm RN 08/11/24 10:35 [facility] 10-09-2024 Summary of episode note Discharge Instructions Thank you for allowing [facility] to assist you with your healthcare needs. The following is importantdischarge information regarding your hospital visit. Your Care Team OLE PACE MD What to do next Scheduled Follow-Up Appointments Appointment Type When With Where Contact Information StatusPALL OV Follow Up 08/16/2024 09:00 AM EDT OLE PACE MD [facility] Confirmed Allergies Haldol Tongue swelling [...] medication providers or retail pharmacies. Education Materials [place] Nephrostomy/Nephroureteral Tube Exchange Discharge Instructions Interventional Radiology [facility] Imaging Services [facility] [id number] The procedure that you had done today [...] the feeling of the need to urinate. Sprl-yin-cgmrxnn pain medication should be used for pain [...] the gauze. Supplies may be obtained at: [facility] [address] [facility] [address] [facility] Any questions or concerns, please contact your physician or Interventional Radiology at [phone] from 8-4:30pm Friday-Friday. If you do not have a follow up appointment scheduled at the time of discharge, please call Interventional Radiology at the number listed above. Additional Information VACCINATE! IT SAVES LIVES! Members of the community who have not yet received the COVID-19 vaccine and would like to receive it can visit one of [facility] vaccine clinics. There are many vaccine clinic locations within the [facility]. For locations and available times, please visit [email or web address]/. It is important to note that some COVID mobile vaccine clinics are held outdoors and may be canceled in rainy or stormy conditions. To learn more about pediatric vaccinations (ages 5-11), we invite you to visit the [employer] webpage. https://www.[employer].org/pages/5834-Frskx-Ehdhsaeqlkk-Xxerelsufm-Nfcij-Ftt stions.htmlTo learn more about the COVID-19 vaccine, we invite you to visit the CDC website for a list of frequently asked questions.https://www.cdc.gov/coronavirus/2019-ncov/vaccines/faq.html [facility] Patient Portal Access Instructions: Stay connected with your healthcare team and access your personal medical information anytime with the [facility] Patient Portal. Please follow the directions below to create your [facility] account: 1.Access the email account you provided upon registration to the hospital/physician office.2.Look for an invitation email from [facility].3.Open the email and access the invitation link: AcceptInvitation to [facility].4.Fill in the required quintero to create your account. To access your account, visit [employer]/[email or web address]. Click the blue button labeled Access Patient [...] your information. You can also access the [facility] Patient Portal on the [place] [facility] joya. Simply click on Patient Portal and then log into your account. If you would like to receive a full copy of your medical records, please contact the [facility] Medical Records Department by calling [phone], Friday through Friday between 8 a.m. and [...] Call your local pharmacy or go to [email or web address]/[email or web address] to find one close to you.3.Make use of household items: Use cat litter or old coffee grounds to dispose medications if other options arenot available. Mix your drugs with these household products, seal them in an airtight container andthrow it into the garbage. Call [facility]: [phone] to be sure your drugs can be [...] aware that I should contact my doctor. Patient/Physical Therapy Aide Signature: Date/Time: Relationship to Patient: Witness Name/Signature: Date/Time: [facility] Note ORIGINAL HISTORY: ORDERING SYSTEM PROVIDED HISTORY: Reason for Exam: cervical caner PROCEDURE: 1. Nephrostomy tube exchange under fluoroscopy LATERALITY: Left VETERINARY BACTERIOLOGIST: Dr. Goss Resident: Dr. English MATERIALS: 12 Fr drainage catheter Ampl[employer] [place] bag Jese catheter ANESTHESIA: General anaesthesia. INTRASERVICE [...] sterilely prepped and draped. Time out performed. Drive Away Driver image demonstrates stable appearance of the nephrostomy [...] Sign Date: 08/11/2024 5:39:17 PM Ordering Provider: [facility]10-09-2024 Note IR Procedure Record Summary Primary Physician: Finalized Date/Time: 08/11/24 10:35:27 Pt. Name: ANTONELLALALY/Sex: 1990 Female Med Rec #: [id number] Physician: Financial #: [id number] Pt. Type: S Room/Bed: [facility] Admit/Disch: 08/11/24 07:53:56 - Institution: [...] Case Attendee GARTH GOSS MD, Blaine Sim, Sam Edwards Role Performed Procedure Surgeon Scrub Technologist [...] Case Attendee Juana Wilhelm RN, ADAM A APRN-CONCESSION STAND ATTENDANT Role Performed Procedure Nurse CONCESSION STAND ATTENDANT Details Time In 08/11/24 09:58:00 08/11/24 09:58:00 [...] Time 08/11/24 10:31:00 Last Modified By: Juana Wilheml RN 08/11/24 10:31:50 Immediate Post OP Note [...] Radiology - Action Plan Outcomes Met? Yes Accounting Consultant Juana Wilhelm RN Completing Procedure Plan Last Modified By: Juana Wilhelm RN 08/11/24 09:41:12 Case Comments Finalized By: Juana Wilhelm RN Document Signatures Signed By: Juana Wilhelm RN 08/11/24 10:35 Juana Wilhelm RN 08/11/24 10:35 [facility]74-6972 History and physical note IR PREPROCEDURE H&P [...] 07/19/2024 and can be found in the [facility] ([employer]). Sky Newsome PA-C Interventional Radiology Pager: [phone] dept: x [phone] Available on [employer] Digitally Signed by SKY NEWSOME PA-C on 08/11/2024 09:39 AM [facility]gn[facility]ot34-00-5899 Anesthesiology Consult note Patient: LALY NAVAS Age: [...] for further details Acid reflux (controlled with sxrq-wxt-asaycoq Pepto), anxiety, asthma, bradycardia, cervical cancer, cervicitis, [...] Problem list: Medical Anxiety / SNOMED CT 80786391 / Confirmed Asthma / SNOMED CT 135099297 / Confirmed Decreased appetite / SNOMED CT 544111175 / Confirmed Dehydration / SNOMED CT 11899210 / Confirmed Port-A-Cath in place / SNOMED CT 9129277312 / Confirmed Bilateral flank pain / SNOMED CT 555981977 / Confirmed History of chemotherapy / SNOMED CT 0618583200 / Confirmed Hx of cervical cancer / SNOMED CT 0883850621 / Confirmed History of radiation therapy / SNOMED CT 3454799254 / Confirmed Hydronephrosis, left / SNOMED CT 92214360 / Confirmed Acute kidney injury / SNOMED CT 97437139 / Confirmed Left flank pain / SNOMED CT 476122161 / Confirmed Cervical cancer / SNOMED CT 721000015 / Confirmed Moderate protein-calorie malnutrition / SNOMED CT 454119928 / Confirmed Nausea and vomiting / SNOMED CT 47762665 / Confirmed Cancer related pain / SNOMED CT 4290973544 / Confirmed DVT prophylaxis / SNOMED CT 197506846 / Confirmed Palliative care encounter / SNOMED CT 043725212 / Confirmed Premature menopause / SNOMED CT 7030635423 / Confirmed Pyelonephritis / SNOMED CT 99979392 / Confirmed Nephrostomy status / SNOMED CT 061060282 / Confirmed Obstructive uropathy / SNOMED CT 89251236 / Confirmed, Active Problems (32) Acid reflux [...] ESBL (extended spectrum beta-lactamase) producing bacteria infection (1271784956): Onset on 02/23/2023 at 32 years. Resolved on 05/07/2023 at 32 years. ESBL (extended spectrum beta-lactamase) producing bacteria infection (7203478777): Onset on 08/09/2022 at 31 years. Resolved on 01/02/2023 at 32 years. Comments: 01/02/2023 EST 10:02 JAMAL Haynes Removed ESBL disease alert from 08/2022 per infection control protocol on 01/02/23. Mass of cervix (783143316): Resolved. Chronic kidney disease, stage 3 (moderate) (4764964782): Resolved. Hydronephrosis of left kidney (73824271): Resolved. Cervicitis (604221158): Resolved. Encounter for antineoplastic chemotherapy (602211954): Resolved. Tinnitus (186695966): Resolved. Complicated UTI (urinary tract infection) (393670559): Resolved. History of COVID-19 (2486819166): Resolved. Family History: Cancer Sister COPD - Chronic obstructive pulmonary disease Mother Kidney stone Mother Asthma Mother Breast cancer Mother Hypertension Mother Heart disease Mother Substance abuse Father Alcohol abuse Father Stroke Grandparent Father Heart attack Mother Diabetes Grandparent Procedure history: Nephrostomy using fluoroscopic guidance (7196875794) on 06/16/2024 at 33 Years. Comments: 06/21/2024 11:46 Fany Beard LPN left JJ stent ([id number]) on 06/16/2024 at 33 Years. Comments: 06/21/2024 11:47 Fany Beard LPN left Nephrostomy tube (436893692) on 10/05/2023 at 32 Years. Comments: 11/19/2023 9:37 Fany Sanchez LPN left side Nephrostomy with tube drainage (86072053) in the month of 07/2023 at 32 Years. Comments: 06/13/2020 10:09 JAMAL Guaman left Nephrostomy with tube drainage (13147186) on 01/10/2021 at 30 Years. Cannulation of Portacath (516218275) in 2020 at 30 Years. Comments: 06/13/2020 10:09 JAMAL Guaman right JJ stent ([id number]) on 11/15/2020 at 29 Years. Radiation (150563059) in the month of 06/2020 at 29 Years. Comments: 06/26/2020 6:12 JAMAL Braswell A via tandems and oviod X2 Cervical biopsy (76585220) in 2019 at 29 Years. Comments: 04/12/2020 18:25 Eri Conte RN pt states she had a cervical biopsy done on 04/07/2020 at [facility] for a cervical mass Tumor cells, benign (78515036) in 2001 at 11 Years. 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 done at [facility] in [place] Social History: Social & Psychosocial Habits Alcohol [...] Signs (last 24 hrs) Last Charted Temp Mbueugof27.6 DegC (AUG 11 08:31) Heart Rate Xangud62 bpm (AUG 11 08:31) NWR332 mmHg (AUG 11 08:31) DBP78 mmHg (AUG 11 08:31) Measurements from flowsheet : Measurements 08/11/2024 8:31 EDT Height 163.8 cm Height in inches 64.5 inch(es) Admission Weight 59.5 kg Weight Lbs 130.9 lb Weight Method Actual [place] Body Weight 55.82 kg Type of Scale [...] Weight Lbs 130.9 lb Weight Method Actual [place] Body Weight 55.82 kg Type of Scale [...] no difficulties Skin Temperature Warm Skin Description [place] Skin Integrity Intact IV Present Present Neurological [...] #1 We May Share PHI Didier Navas [phone] Designated Person #1 Relationship Father Designated Person #2 We May Share PHI [phone] Designated Person #2 Relationship Sibling Additional Designated [...] No Advanced Directives Yes Advance Directive Type [place] Declaration (Living Will) Advance Directive Location Indicates [...] Method Explanation, Printed materials Preferred Spoken Language Macanese Preferred Written Language Macanese Family/Caregiver Prefer Spoken Language Macanese Family/Caregiver Prefer Written Language Macanese Teaching Evaluation Verbalizes/Nonverbally indicates understanding Safety Brochure Information Reviewed Yes Vanessa Dona Video Viewed No Information Given by Patient [...] 1,000 mL mL . Assessment and Plan [place] Society of Anesthesiologists (ASA) physical status classification: [...] NAYELI BRICE DO on 08/11/2024 09:33 AM [facility]ph[facility]-0620 Evaluation + Plan note Future Appointments Appointment Date:08/11/2024 10:00:00 AM Scheduled Provider: Location:IR Appointment Type:IR Nephrostomy Exchange Appointment Date:08/16/2024 09:00:00 AM Scheduled Provider:OLE PACE MD Location:[facility] Appointment Type:PALL OV Follow Up Future Scheduled Tests Laboratory* Clostridium difficile (PCR) 03/04/24 * Ova + Parasite Exam 5/2/24 Radiology* IR Nephrostomy Exchange 08/11/24 * IR Nephrostomy Tube Change Lt Guide 09/04/23 [facility] 09-24-2024 Interventional radiology Progress note The patient was notified via phone her next neph tube exchange in IR with anesthesia is scheduled for 08/11 arrival at 0800 same day surgery. The patient was also notified her pre test appointmentis scheduled for 08/04 at 9am. The patient confirmed and verbalized understanding. Digitally Signed by JAMAL Coleman on 07/27/2024 11:32 AM [facility]pfyqyvx05-18-4129 NoteORIGINAL PROCEDURE: Nephrostogram with left percutaneous nephrostomy [...] in the usual sterile fashion. A fluoroscopic scout professional sports image was obtained demonstrating the expected position [...] 06/14/2024 2:56:33 PM Ordering Provider: [facility] ([place])06-09-2024 Evaluation + Plan noteExtracted from: Title:IR Pre-Procedure [...] 05/24/24 and can be found in the [place] [facility] ([facility] [place]). Milagro Mcgarry PA-C Interventional Radiology IR Dept [id number] Available on [employer] Future Appointments Appointment Date:06/21/2024 11:30:00 AM Scheduled Provider:OLE PACE MD Location:[facility]iative Appointment Type:PALL OV Follow Up Future Scheduled Tests Laboratory* Clostridium difficile (PCR) 03/04/24 * Ova + Parasite Exam 03/04/24 Radiology* IR Nephrostomy Exchange 06/09/24 * IR Nephrostomy Tube Change Lt Guide 09/04/23 [facility] 08-07-2024 Hospital Discharge instructions Patient Education 06/09/2024 11:02:59 Radiology- Nephrostomy/Nephroureteral Tube Exchange 12/26/2022(CUSTOM) [place] Nephrostomy/Nephroureteral Tube Exchange Discharge Instructions Interventional Radiology [facility] Imaging Services [address] [address] The procedure that you had done today [...] the feeling of the need to urinate. Giiw-wlb-mgzauag pain medication should be used for pain [...] Supplies may be obtained at: [facility] [address] [facility] [address] [facility] Any questions or concerns, please contact your physician or Interventional Radiology at [phone] from 8-4:30pm Friday-Friday. If you do not have a follow up appointment scheduled at the time of discharge, please call Interventional Radiology at the number listed above. 06/09/2024 11:02:47 1- [facility] General Discharge Guidelines (07/18/2023) (CUSTOM) VANESSA [...] Care 06/07/2024 11:54:07 With:JULIAN ISABEL MD Address: [address] [place] [address] Gy[place] [address]- [phone] When: Unknown Comments:Call the office to schedule a follow up appointment if not already done. [facility] 08-07-2024 Note* Cristina Simons RN: SIGN, AUTHOR, SIGN, AUTHOR, PERFORM Event Display: IR Procedure Record Authored Date: [id number] IR Procedure Record Summary Primary Physician: VIRAL MANUEL MD Finalized Date/Time: 06/09/24 09:42:49 Pt. Name: LALY NAVAS Austen Lambert/Sex: 1990 Female Med Rec #: [id number] Physician: Financial #: [id number] Pt. Type: S Room/Bed: [facility]6/A Admit/Disch: 06/09/24 05:55:56 - Institution: [...] RN Role Performed Primary Surgeon Assisting Surgeon Auto Parker 1 Details Time In 06/09/24 08:45:00 06/09/24 08:45:00 06/09/24 08:18:00 Time Out 06/09/24 09:22:00 06/09/24 09:22:00 06/09/24 09:38:00 Procedure/Preference IR Nephrostomy Exchange IR Nephrostomy Exchange IR Nephrostomy Exchange Card (SN) (SN) (SN) Last Modified By: Cristina Simons RN, Tracie N RN Aller, Tracie N RN 06/09/24 09:42:01 06/09/24 09:42:01 06/09/24 09:42:01 Entry 4 Entry 5 Entry 6 Case Attendee Padmini Fairchild Colten G HARLOW, MATTHEW J Tech BRIM GREASER OPERATOR-CONCESSION STAND ATTENDANT Role Performed Scrub Technologist Circulating Technologist CONCESSION STAND ATTENDANT Details Time In 06/09/24 08:18:00 06/09/24 08:18:00 [...] 65 mL Medication CONTRAST ISOVUE 300/30ML 10/[place] 517743 Radiology Flouroscopy Fluoroscopy Used? Yes Fluoro Dose [...] Fairchild appropriately Tech, DENISE MONROY displayed, Alcohol BRIM GREASER OPERATOR-CONCESSION STAND ATTENDANT based prep dry, Double verification of sterility [...] Radiology - Action Plan Outcomes Met? Yes Accounting Consultant Cristina Simons RN Completing Procedure Plan Last Modified By: Cristina Simons RN 06/09/24 08:51:45 Case Comments <None> Finalized By: Cristina Simons RN Document Signatures Signed By: Cristina Simons RN 06/09/24 09:42 Cristina Simons RN 06/09/24 09:42 [facility] 08-07-2024 Summary of episode note Discharge Instructions Thank you for allowing [facility] to assist you with your healthcare needs. The following is importantdischarge information regarding your hospital visit. Your Care Team OTHER, PROVIDER NOT SPECIFIED What to do next Scheduled Follow-Up Appointments Appointment Type When With Where Contact Information StatusPALL OV Follow Up 06/21/2024 11:30 AM OLE MATUTE MD [facility] Confirmed Follow Up Appointments Follow Up with JULIAN ISABEL MD Where:[address] [facility] [place] [address]- [phone] Additional Information: Call the office to schedule [...] cervical cancer Unchanged potassium chloride (Potassium Chloride (Kov-Wsic-Qey M20) 20 mEq oral tablet, extended release) [...] medication providers or retail pharmacies. Education Materials [place] Nephrostomy/Nephroureteral Tube Exchange Discharge Instructions Interventional Radiology [facility] Imaging Services [address] [place] [address] The procedure that you had done today [...] the feeling of the need to urinate. Pxef-wya-bbarrsn pain medication should be used for pain [...] the gauze. Supplies may be obtained at: [facility] [address] [facility] [address] [facility] Any questions or concerns, please contact your physician or Interventional Radiology at [phone] from 8-4:30pm Friday-Friday. If you do not [...] to receive it can visit one of [facility] vaccine clinics. There are many vaccine clinic locations within the [facility]. For locations and available times, please visit [email or web address]/. It is important to note that some COVID mobile vaccine clinics are held outdoors and may be canceled in rainy or stormy conditions. To learn more about pediatric vaccinations (ages 5-11), we invite you to visit the [facility] webpage. https://www.[email or web address].org/pages/5796-Drcgg-Gxqiafbgkfl-Jclxiwwlxb-Tdupy-Pxp stions.htmlTo learn more about the COVID-19 vaccine, we invite you to visit the CDC website for a list of frequently asked questions.https://www.cdc.gov/coronavirus/2019-ncov/vaccines/faq.html [facility] Patient Portal Access Instructions: Stay connected with your healthcare team and access your personal medical information anytime with the [facility] Patient Portal. Please follow the directions below to create your [facility] account: 1.Access the email account you provided upon registration to the hospital/physician office.2.Look for an invitation email from [facility].3.Open the email and access the invitation link: AcceptInvitation to [facility].4.Fill in the required quintero to create your account. To access your account, visit [email or web address]. Click the blue button labeled Access Patient [...] who you will allowto register on the [facility] Patient Portal for access to your information. You can also access the [facility] Patient Portal on the [place] [facility] joya. Simply click on Patient Portal and then log into your account. If you would like to receive a full copy of your medical records, please contact the [facility] Medical Records Department by calling [phone], Friday through Friday between 8 a.m. and [...] Call your local pharmacy or go to http://bit.ly/3X1By0l to find one close to you.3.Make use of household items: Use cat litter or old coffee grounds to dispose medications if other options arenot available. Mix your drugs with these household products, seal them in an airtight container andthrow it into the garbage. Call [facility]: [phone] to be sure your drugs can be [...] Materials Radiology- Nephrostomy/Nephroureteral Tube Exchange 12/26/2022(CUSTOM) 1- [facility] General Discharge Guidelines (07/18/2023) (CUSTOM) Medication Leaflets My discharge plan and instructions have been reviewed and explained to me and IANTONELLA RACHAEL L understand my current condition and have read and understand these discharge instructions. I have received a written copy of the plan/instructions. If I have questions, I am aware that I should contact my doctor. Patient/Physical Therapy Aide Signature: Date/Time: Relationship to Patient: Witness Name/Signature: Date/Time: [facility]4008 Note IR Procedure Record Summary Primary Physician: VIRAL MANUEL MD Finalized Date/Time: 06/09/24 09:42:49 Pt. Name: LALY NAVAS /Sex: 1990 Female Med Rec #: [id number] Physician: Financial #: [id number] Pt. Type: S Room/Bed: [facility]6/A Admit/Disch: 06/09/24 05:55:56 - Institution: [...] RN Role Performed Primary Surgeon Assisting Surgeon Auto Parker 1 Details Time In 06/09/24 08:45:00 06/09/24 08:45:00 06/09/24 08:18:00 Time Out 06/09/24 09:22:00 06/09/24 09:22:00 06/09/24 09:38:00 Procedure/Preference IR Nephrostomy Exchange IR Nephrostomy Exchange IR Nephrostomy Exchange Card (SN) (SN) (SN) Last Modified By: Cristina Simons RN, Tracie N RN Aller, Tracie N RN 06/09/24 09:42:01 06/09/24 09:42:01 06/09/24 09:42:01 Entry 4 Entry 5 Entry 6 Case Attendee Padmini Fairchild Colten G HARLOW, MATTHEW J Tech BRIM GREASER OPERATOR-CONCESSION STAND ATTENDANT Role Performed Scrub Technologist Circulating Technologist CONCESSION STAND ATTENDANT Details Time In 06/09/24 08:18:00 06/09/24 08:18:00 [...] 65 mL Medication CONTRAST ISOVUE 300/30ML 10/[place] 844234 Radiology Flouroscopy Fluoroscopy Used? Yes Fluoro Dose [...] Fairchild appropriately Tech, DENISE MONROY displayed, Alcohol BRIM GREASER OPERATOR-CONCESSION STAND ATTENDANT based prep dry, Double verification of sterility [...] Radiology - Action Plan Outcomes Met? Yes Accounting Consultant Cristina Simons RN Completing Procedure Plan Last Modified By: Cristina Simons RN 06/09/24 08:51:45 Case Comments Finalized By: Cristina Simons RN Document Signatures Signed By: Cristina Simons RN 06/09/24 09:42 Cristina Simons RN 06/09/24 09:42 [facility]ujrmzej45-71-0564 History and physical note IR PREPROCEDURE H&P [...] 05/24/24 and can be found in the [facility] ([employer]). Milagro Mcgarry PA-C Interventional Radiology IR Dept [id number] Available on [facility] Aware Digitally Signed by MILAGRO MCGARRY PA-C on 06/09/2024 07:59 AM Digitally Signed by VIRAL MANUEL MD on 06/09/2024 08:34 AM [facility] CincinnatiRxkwrxzf73-08-8676 Anesthesiology Consult note Patient: LALY NAVAS Age: [...] pain, 120 tab(s), 0 Refill(s) Potassium Chloride (Ofp-Xbzf-Rlm M20) 20 mEq oral tablet, extended release: [...] Problem list: Medical Anxiety / SNOMED CT 02521723 / Confirmed Asthma / SNOMED CT 982383503 / Confirmed Decreased appetite / SNOMED CT 642747552 / Confirmed Dehydration / SNOMED CT 23946836 / Confirmed Port-A-Cath in place / SNOMED CT 4336938946 / Confirmed Bilateral flank pain / SNOMED CT 406095071 / Confirmed History of chemotherapy / SNOMED CT 5992468237 / Confirmed Hx of cervical cancer / SNOMED CT 3795685017 / Confirmed History of radiation therapy / SNOMED CT 2401455134 / Confirmed Hydronephrosis, left / SNOMED CT 14738241 / Confirmed Acute kidney injury / SNOMED CT 29560086 / Confirmed Left flank pain / SNOMED CT 012838368 / Confirmed Cervical cancer / SNOMED CT 192863977 / Confirmed Moderate protein-calorie malnutrition / SNOMED CT 039588154 / Confirmed Nausea and vomiting / SNOMED CT 16710664 / Confirmed Cancer related pain / SNOMED CT 0714307671 / Confirmed DVT prophylaxis / SNOMED CT 954666204 / Confirmed Palliative care encounter / SNOMED CT 411881008 / Confirmed Premature menopause / SNOMED CT 1710935905 / Confirmed Pyelonephritis / SNOMED CT 88065901 / Confirmed Nephrostomy status / SNOMED CT 763023514 / Confirmed Complicated UTI (urinary tract infection) / SNOMED CT 181397391 / Confirmed Obstructive uropathy / SNOMED CT 23804839 / Confirmed, Active Problems (28) Acute kidney [...] ESBL (extended spectrum beta-lactamase) producing bacteria infection (4763798466): Onset on 02/23/2023 at 32 years. Resolved on 05/07/2023 at 32 years. ESBL (extended spectrum beta-lactamase) producing bacteria infection (5615229176): Onset on 08/09/2022 at 31 years. Resolved on 01/02/2023 at 32 years. Comments: 01/02/2023 EST 10:02 SUMEET Pantoja RN Ilda Jiménez Removed ESBL disease alert from 08/2022 per infection control protocol on 01/02/23. Mass of cervix (116609700): Resolved. Chronic kidney disease, stage 3 (moderate) (5159742646): Resolved. Hydronephrosis of left kidney (92642899): Resolved. Cervicitis (069538753): Resolved. Encounter for antineoplastic chemotherapy (367998748): Resolved. Tinnitus (379832104): Resolved. History of COVID-19 (4959002724): Resolved. Family History: Cancer Sister COPD - Chronic obstructive pulmonary disease Mother Kidney stone Mother Asthma Mother Breast cancer Mother Hypertension Mother Heart disease Mother Substance abuse Father Alcohol abuse Father Stroke Grandparent Father Heart attack Mother Diabetes Grandparent Procedure history: Nephrostomy tube (333917444) on 10/05/2023 at 32 Years. Comments: 11/19/2023 9:37 Fany Sanchez LPN left side Nephrostomy with tube drainage (57834577) in the month of 07/2023 at 32 Years. Comments: 06/13/2020 10:09 JAMAL Guaman left Nephrostomy with tube drainage (19610868) on 01/10/2021 at 30 Years. Cannulation of Portacath (191592182) in 2020 at 30 Years. Comments: 06/13/2020 10:09 JAMAL Guaman right JJ stent (6861067437) on 11/15/2020 at 29 Years. Radiation (540140409) in the month of 06/2020 at 29 Years. Comments: 06/26/2020 6:12 JAMAL Braswell A via tandems and oviod X2 Cervical biopsy (75458107) in 2019 at 29 Years. Comments: 04/12/2020 18:25 Eri Conte RN pt states she had a cervical biopsy done on 04/07/2020 at [facility] for a cervical mass Tumor cells, benign (53316777) in 2001 at 11 Years. 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 done at [facility] in [place] Social History: Social & Psychosocial Habits Alcohol [...] Signs (last 24 hrs) Last Charted Temp Wqilorvq50.4 DegC (JUN 09 06:46) IIQ135 mmHg (JUN 09 06:46) DBPH 90 mmHg (JUN 09 06:46) BMI21.18 (JUN 09 06:48) Measurements from flowsheet : Measurements 06/09/2024 6:48 EDT Body Mass Index 21.18 kg/m2 06/09/2024 6:46 EDT Height 167.6 cm Height in inches 66 inch(es) Admission Weight 59.5 kg Weight Lbs 130.9 lb Weight Method Actual [place] Body Weight 59.26 kg Type of Scale [...] Documentation reviewed: Current records. Assessment and Plan [place] [employer] of Anesthesiologists (ASA) physical status classification: [...] HILDA HADDAD MD on 06/09/2024 09:02 AM [facility] CincinnatiCpqefgqi50-02-0420 Note. MICRO - Microbiology PROCEDURE: Blood Culture [...] Locations *1: This test was performed at: [facility], [address] [place] [address], [facility] , [facility] ([place])05-23-2024 Note. MICRO - Microbiology PROCEDURE: Blood Culture [...] Locations *1: This test was performed at: [address], [facility] , [facility] ([place])04-14-2024 NoteORIGINAL PROCEDURE: Percutaneous left nephrostomy tube exchange with fluoroscopy CLINICAL STATEMENT: History of cervical cancer with left hydronephrosis VETERINARY BACTERIOLOGIST: Tadeo Leija PA-C MATERIALS: 10 Fr X [...] using 2 identifiers, confirming site and side. Drive Away Driver image with contrast injection demonstrates stable appearance [...] contents of this report. Interpreted by: Viral Maunel MD Preliminary Report By: Tadeo Leija PA-C Electronically signed By Viral Manuel MD Dictated Date: 04/14/2024 4:57:29 PM Prelim Date: 04/14/2024 4:58:35 PM Sign Date: 04/14/2024 5:53:55 PM Ordering Provider: [facility] ([place])04-14-2024 Hospital Discharge instructions Patient Education 04/14/2024 14:01:07 Radiology- Nephrostomy/Nephroureteral Tube Exchange 12/26/2022(CUSTOM) [place] Nephrostomy/Nephroureteral Tube Exchange Discharge Instructions Interventional Radiology [facility] Imaging Services [address] [place] [address] The procedure that you had done today [...] the feeling of the need to urinate. Mkdk-ooa-kwlzqol pain medication should be used for pain [...] the gauze. Supplies may be obtained at: [facility] [address] [facility] [address] [facility] Any questions or concerns, please contact your physician or Interventional Radiology at [phone] from 8-4:30pm Friday-Friday. If you do not have a follow up appointment scheduled at the time of discharge, please call Interventional Radiology at the number listed above. 04/14/2024 14:00:43 1- [facility] General Discharge Guidelines (07/18/2023) (CUSTOM) VANESSA [...] Care 03/10/2024 10:15:11 With:OLE PACE MD Address: [address] [place] [phone] When: Unknown Comments:Follow-up as scheduled [facility] 06-12-2024 Note* Dustin Palm RN: SIGN, AUTHOR, PERFORM Event Display: IR Procedure Record Authored Date: IR Procedure Record Summary Primary Physician: Finalized Date/Time: 04/14/24 13:19:12 Pt. Name: LALY NAVAS/Sex: 1990 Female Med Rec #: [id number] Physician: Financial #: [id number] Pt. Type: S Room/Bed: [facility]/A Admit/Disch: 04/14/24 11:12:45 - Institution: Allergies [...] Entry 3 Case Attendee TADEO LEIJA PA-C, Make Up Operator HelperKarolina Bonner Role Performed Radiology PA/ Scrub Technologist Circulating [...] 5 Case Attendee Dustin Palm RN, JACKSON BRIM GREASER OPERATOR-CONCESSION STAND ATTENDANT Role Performed Auto Parker 1 CONCESSION STAND ATTENDANT Details Time In 04/14/24 12:44:00 04/14/24 12:44:00 [...] Palm RN, labeled and BREANN BRAVO appropriately BRIM GREASER OPERATOR-CONCESSION STAND ATTENDANT displayed, Alcohol based prep dry Instrument Sterility Procedure IR Nephrostomy Exchange (SN) Last Modified By: Dustin Palm RN 04/14/24 12:52:45 Skin Prep- IR Entry 1 Procedure IR Nephrostomy Exchange (SN) Skin Prep Prep Area Flank Side Left By Sma Junior Prep Agents Chloraprep Hair Removal Method [...] Radiology - Action Plan Outcomes Met? Yes Accounting Consultant Dustin Palm RN Completing Procedure Plan Last Modified By: Dustin Palm RN 04/14/24 12:53:11 Case Comments <None> Finalized By: Dustin Palm RN Document Signatures Signed By: Dustin Palm RN 04/14/24 13:18 [facility] 06-12-2024 Procedure note IR Brief Post Procedure Note Preprocedure Dx: cervical cancer with hydronephrosis Post Procedure Dx: Same Procedure: LEFT nephrostomy tube exchange Anesthesia: MAC and Local EBL: Minimal Complications: None Status: Unchanged Findings: 1. Successful LEFT nephrostomy tube exchange. Plan: 1. Attached to dependent drainage bag. Full report to follow. Orders in [employer]. Tadeo Leija PA-C Interventional Radiology Pager: [phone] IR dept: [id number] Available on [employer] Digitally Signed by TADEO LEIJA PA-C on 04/14/2024 02:50 PM [facility] CincinnatiYugdwabh63-51-9028 Summary of episode note Discharge Instructions Thank you for allowing [facility] to assist you with your healthcare needs. The following is importantdischarge information regarding your hospital visit. Your Care Team OTHER, PROVIDER NOT SPECIFIED What to do next Scheduled Follow-Up Appointments Appointment Type When With Where Contact Information StatusSO OV Follow Up 04/19/2024 11:00 AM EDT [facility] [address] [place] [address] Confirmed PALL OV Follow Up 04/28/2024 11:30 AM EDT OLE PACE MD [facility] Confirmed Follow Up Appointments Follow Up with OLE PACE MD Where:[address] [place] [address] [place] [address]- [phone] Additional Information: Follow-up as scheduled Allergies Haldol [...] medication providers or retail pharmacies. Education Materials [place] Nephrostomy/Nephroureteral Tube Exchange Discharge Instructions Interventional Radiology [facility] Imaging Services [address] [place] [address] The procedure that you had done today [...] the feeling of the need to urinate. Xyzf-lom-jnsvlcz pain medication should be used for pain [...] the gauze. Supplies may be obtained at: [facility] [address] [facility] [address] [facility] Any questions or concerns, please contact your physician or Interventional Radiology at [phone] from 8-4:30pm Friday-Friday. If you do not have a follow up appointment scheduled at the time of discharge, please call Interventional Radiology at the number listed above. [place] SAME DAY SURGERY DISCHARGE INSTRUCTIONS PLEASE FOLLOW [...] to receive it can visit one of [facility] vaccine clinics. There are many vaccine clinic locations within the [facility]. For locations and available times, please visit [email or web address] It is important to note that some COVID mobile vaccine clinics are held outdoors and may be canceled in rainy or stormy conditions. To learn more about pediatric vaccinations (ages 5-11), we invite you to visit the [facility] webpage. [email or web address]/[email or web address]-[email or web address]-Seugd-[email or web address] stions.htmlTo learn more about the COVID-19 vaccine, we invite you to visit the CDC website for a list of frequently asked questions.https://www.cdc.gov/coronavirus/2019-ncov/vaccines/faq.html [facility] Patient Portal Access Instructions: Stay connected with your healthcare team and access your personal medical information anytime with the [facility] Patient Portal. Please follow the directions below to create your [facility] account: 1.Access the email account you provided upon registration to the hospital/physician office.2.Look for an invitation email from [facility].3.Open the email and access the invitation link: AcceptInvitation to [facility].4.Fill in the required quintero to create your account. To access your account, visit [employer]/MogujieOneChart. Click the blue button labeled Access Patient Portal and then log in with the username and password that you created in the steps above. You will be able to view your test results, lab results, a summary of your visits, upcoming appointments and more. There is also a convenient messaging option where you can send secure messages to your p Cool Containersvider. In addition, you will have the ability to download any documents or summaries to your computer and/or send the information securely to a physician. Remember that your healthcare information is confidential, so carefully consider who you will allowto register on the [facility] Patient Portal for access to your information. You can also access the [facility] Patient Portal on the M[employer]where joya. Simply click on Patient Portal and then log into your account. If you would like to receive a full copy of your medical records, please contact the [facility] Medical Records Department by calling [phone], Friday through Friday between 8 a.m. and [...] Call your local pharmacy or go to [email or web address] to find one close to you.3.Make use of household items: Use cat litter or old coffee grounds to dispose medications if other options arenot available. Mix your drugs with these household products, seal them in an airtight container andthrow it into the garbage. Call [facility]: [phone] to be sure your drugs can be [...] Materials Radiology- Nephrostomy/Nephroureteral Tube Exchange 12/26/2022(CUSTOM) 1- [facility] General Discharge Guidelines (07/18/2023) (CUSTOM) Medication Leaflets My discharge plan and instructions have been reviewed and explained to me and I,ANTONELLA LALY L understand my current condition and have read and understand these discharge instructions. I have received a written copy of the plan/instructions. If I have questions, I am aware that I should contact my doctor. Patient/Physical Therapy Aide Signature: Date/Time: Relationship to Patient: Witness Name/Signature: Date/Time: [facility]gqgjlpc97-02-4259 Evaluation + Plan noteExtracted from: Title:IR Pre-Procedure [...] Ready to change: Yes. Physical Exam Vitals: Nrijzeiqcvt13.2 (11:36) Systolic Blood Umkkmyed246 (11:36) Diastolic Blood Zjiivurt41 (11:36) Pulse79 (11:36) HsF549 (11:36) Respiratory RateNo result General: Alert, cooperative. The remainder of the physical exam is noncontributory. Labs Anticoagulation Labs No qualifying data available. No qualifying data available. Assessment/Treatment Plan Image Guided LEFT Nephrostomy Tube Exchange with possible intervention Post Procedure Discharge Plan Patient to be discharged home. Milagro Mcgarry PA-C Interventional Radiology Pager [phone] IR Dept [id number] Available on [facility] Aware Future Appointments Appointment Date:04/19/2024 11:00:00 AM Scheduled Provider: Location:[facility] Appointment Type:SO OV Follow Up Appointment Date:04/28/2024 11:30:00 AM Scheduled Provider:OLE PACE MD Location:[facility] Palliative Appointment Type:PALL OV Follow Up Future Scheduled Tests Laboratory* Clostridium difficile (PCR) 03/04/24 * Ova + Parasite Exam 03/04/24 Radiology* IR Nephrostomy Tube Change Lt Guide 09/04/23 [facility] 06-12-2024 Note IR Procedure Record Summary Primary Physician: Finalized Date/Time: 04/14/24 13:19:12 Pt. Name: LALY NAVAS/Sex: 1990 Female Med Rec #: [id number] Physician: Financial #: [id number] Pt. Type: S Room/Bed: [facility]/A Admit/Disch: 04/14/24 11:12:45 - Institution: Allergies identified in patient's electronic medical record at time of printing on 04/14/24 Entry 1 Entry 2 Entry 3 Substance Haldol Oranges penicillin Reaction Type Allergy Allergy Allergy Last Modified By: Fany Ruelas LPN, Kimberly V. RN Holt, Kimberly V. RN 11/19/23 09:39:23 07/21/23 10:11:02 09/18/23 10:10:45 Case Attendance- IR Entry 1 Entry 2 Entry 3 Case Attendee TADEO LEIJA PA-C, Make Up Operator HelperKarolina Bonner Role Performed Radiology PA/RA Scrub Technologist [...] 5 Case Attendee Dustin Palm RN, JACKSON BRIM GREASER OPERATOR-CONCESSION STAND ATTENDANT Role Performed Auto Parker 1 CONCESSION STAND ATTENDANT Details Time In 04/14/24 12:44:00 04/14/24 12:44:00 [...] Palm RN, labeled and BREANN BRAVO appropriately BRIM GREASER OPERATOR-CONCESSION STAND ATTENDANT displayed, Alcohol based prep dry Instrument Sterility [...] Radiology - Action Plan Outcomes Met? Yes Accounting Consultant Dustin Palm RN Completing Procedure Plan Last Modified By: Dustin Palm RN 04/14/24 12:53:11 Case Comments Finalized By: Dustin Palm RN Document Signatures Signed By: Dustin Palm RN 04/14/24 13:18 [facility] Cincinnati[facility]iletmcl81-20-5240 Note ORIGINAL PROCEDURE: Percutaneous left nephrostomy tube exchange with fluoroscopy CLINICAL STATEMENT: History of cervical cancer with left hydronephrosis VETERINARY BACTERIOLOGIST: Tadeo Leija PA-C MATERIALS: 10 Fr X [...] using 2 identifiers, confirming site and side. Drive Away Driver image with contrast injection demonstrates stable appearance [...] Sign Date: 04/14/2024 5:53:55 PM Ordering Provider: [facility]06-12-2024 History and physical note Interventional Radiology Focused [...] Ready to change: Yes. Physical Exam Vitals: Cgtfztyivme07.2 (11:36) Systolic Blood Bdusimhw728 (11:36) Diastolic Blood Zvtlnhzw52 (11:36) Pulse79 (11:36) ScG557 (11:36) Respiratory RateNo result General: Alert, cooperative. The remainder of the physical exam is noncontributory. Labs Anticoagulation Labs No qualifying data available. No qualifying data available. Assessment/Treatment Plan Image Guided LEFT Nephrostomy Tube Exchange with possible intervention Post Procedure Discharge Plan Patient to be discharged home. Milagro Mcgarry PA-C Interventional Radiology Pager [phone] IR Dept [id number] Available on [facility] Aware Digitally Signed by MILAGRO MCGARRY PA-C on 04/14/2024 12:38 PM Digitally Signed by VIRAL MANUEL MD on 04/14/2024 03:28 PM [facility] CincinnatiSoqixdxv44-07-4047 Anesthesiology Consult note Patient: LALY NAVAS Age: [...] Problem list: Medical Anxiety / SNOMED CT 21169172 / Confirmed Asthma / SNOMED CT 131625117 / Confirmed Decreased appetite / SNOMED CT 815268401 / Confirmed Dehydration / SNOMED CT 78994390 / Confirmed Port-A-Cath in place / SNOMED CT 4542142040 / Confirmed Bilateral flank pain / SNOMED CT 631211453 / Confirmed History of chemotherapy / SNOMED CT 6107995023 / Confirmed Hx of cervical cancer / SNOMED CT 7045723676 / Confirmed History of radiation therapy / SNOMED CT 1595336480 / Confirmed Hydronephrosis, left / SNOMED CT 36385054 / Confirmed Acute kidney injury / SNOMED CT 94067136 / Confirmed Left flank pain / SNOMED CT 040643362 / Confirmed Cervical cancer / SNOMED CT 524698595 / Confirmed Moderate protein-calorie malnutrition / SNOMED CT 440979103 / Confirmed Nausea and vomiting / SNOMED CT 95283293 / Confirmed Cancer related pain / SNOMED CT 0629978649 / Confirmed DVT prophylaxis / SNOMED CT 868345153 / Confirmed Palliative care encounter / SNOMED CT 064310987 / Confirmed Premature menopause / SNOMED CT 1842480325 / Confirmed Pyelonephritis / SNOMED CT 86323824 / Confirmed Nephrostomy status / SNOMED CT 742804676 / Confirmed Complicated UTI (urinary tract infection) / SNOMED CT 073343004 / Confirmed Obstructive uropathy / SNOMED CT 89346466 / Confirmed, Active Problems (28) Acute kidney [...] ESBL (extended spectrum beta-lactamase) producing bacteria infection (1778632338): Onset on 02/23/2023 at 32 years. Resolved on 05/07/2023 at 32 years. ESBL (extended spectrum beta-lactamase) producing bacteria infection (5834957428): Onset on 08/09/2022 at 31 years. Resolved on 01/02/2023 at 32 years. Comments: 01/02/2023 EST 10:02 JAMAL Haynes Removed ESBL disease alert from 08/2022 per infection control protocol on 01/02/23. Mass of cervix (479026515): Resolved. Chronic kidney disease, stage 3 (moderate) (9131622500): Resolved. Hydronephrosis of left kidney (44775322): Resolved. Cervicitis (192457629): Resolved. Encounter for antineoplastic chemotherapy (571843261): Resolved. Tinnitus (610662020): Resolved. History of COVID-19 (8415786834): Resolved. Procedure history: Nephrostomy tube (951471705) on 10/05/2023 at 32 Years. Comments: 11/19/2023 9:37 Fany Sanchez LPN left side Nephrostomy with tube drainage (28232647) in the month of 07/2023 at 32 Years. Comments: 06/13/2020 10:09 JAMAL Guaman left Nephrostomy with tube drainage (43299594) on 01/10/2021 at 30 Years. Cannulation of Portacath (235666064) in 2020 at 30 Years. Comments: 06/13/2020 10:09 JAMAL Guaman right JJ stent ([id number]) on 11/15/2020 at 29 Years. Radiation (660598894) in the month of 06/2020 at 29 Years. Comments: 06/26/2020 6:12 GINNY Burton RN Mayi A via tandems and oviod X2 Cervical biopsy (63964366) in 2019 at 29 Years. Comments: 04/12/2020 18:25 Eri Conte RN pt states she had a cervical biopsy done on 04/07/2020 at [facility] for a cervical mass Tumor cells, benign (92311184) in 2001 at 11 Years. 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 done at [facility] in [place] Social History: Social & Psychosocial Habits Alcohol [...] records, Reviewed prior records. Assessment and Plan [place] [employer] of Anesthesiologists (ASA) physical status classification: [...] DAVID SMITH MD on 04/14/2024 01:24 PM [facility] CincinnatiTnkopdzf16-78-5147 NoteORIGINAL PROCEDURE: Percutaneous nephrostomy tube exchange with fluoroscopy CLINICAL STATEMENT: Left nephrostomy tube exchange, routine LATERALITY: LEFT VETERINARY BACTERIOLOGIST: Lacey Loera PA-C MATERIALS: 10 Fr X [...] using 2 identifiers, confirming site and side. Drive Away Driver image with contrast injection demonstrates stable appearance [...] Sign Date: 03/04/2024 9:14:43 AM Ordering Provider: [facility])03-03-2024 Hospital Discharge instructions Patient Education 03/03/2024 14:38:37 Radiology- Nephrostomy/Nephroureteral Tube Exchange 12/26/2022(CUSTOM) [place] Nephrostomy/Nephroureteral Tube Exchange Discharge Instructions Interventional Radiology [facility] Imaging Services [facility] [place] [address] The procedure that you had done today [...] the feeling of the need to urinate. Sawu-rlr-thhahwx pain medication should be used for pain [...] the gauze. Supplies may be obtained at: [facility] [address] [facility] [address] [facility] Any questions or concerns, please contact your physician or Interventional Radiology at [phone] from 8-4:30pm Friday-Friday. If you do not have a follow up appointment scheduled at the time of discharge, please call Interventional Radiology at the number listed above. 03/03/2024 14:38:26 1- [facility] General Discharge Guidelines (07/18/2023) (CUSTOM) [place] SAME DAY SURGERY DISCHARGE INSTRUCTIONS PLEASE FOLLOW [...] 13:58:52 With:MADELINE APARICIO MD, [facility] Address: [address] [place] [address] [facility] [place] [address]- [phone] When: Unknown Comments:Follow-up as scheduled [facility] 05-01-2024 History and physical note IR PREPROCEDURE [...] 02/04/2024 and can be found in the [facility] ([employer]). Lacey Loera PA-C Interventional Radiology IR Dept [id number] Available on [employer] Digitally Signed by LACEY LOERA PA-C on 03/03/2024 03:54 PM [facility] [id number] Note* Cristina Simons RN: SIGN, AUTHOR, PERFORM Event Display: IR Procedure Record Authored Date: [id number] IR Procedure Record Summary Primary Physician: LACEY LOERA PA-C Finalized Date/Time: 03/03/24 13:42:51 Pt. Name: ANTONELLALALY/Sex: 1990 Female Med Rec #: [id number] Physician: Financial #: [id number] Pt. Type: S Room/Bed: [facility]/A Admit/Disch: 03/03/24 10:48:31 - Institution: Allergies [...] RYAN L Aller, Tracie N RN PA-C BRIM GREASER OPERATOR-CONCESSION STAND ATTENDANT Role Performed Primary Surgeon CONCESSION STAND ATTENDANT Auto Parker 1 Details Time In 03/03/24 13:33:00 03/03/24 13:10:00 03/03/24 13:29:00 Time Out 03/03/24 13:39:00 03/03/24 13:46:00 03/03/24 13:46:00 Procedure/Preference IR Nephrostomy Exchange IR Nephrostomy Exchange IR Nephrostomy Exchange Card (SN) (SN) (SN) Last Modified By: Cristina Simons RN, Tracie N RN Aller, Tracie N RN 03/03/24 13:40:25 03/03/24 13:40:25 03/03/24 13:40:25 Entry 4 Entry 5 Case Attendee Padmini Fairchild, Make Up Operator HelperShodogg Role Performed Scrub Technologist Circulating Technologist Details [...] 6 mL Medication CONTRAST ISOVUE 300/30ML 10/CA 518654 Radiology Flouroscopy Fluoroscopy Used? Yes Fluoro Dose [...] RADHA CHU RYAN L Relevant images and BRIM GREASER OPERATOR-Kristyn ESPINOZA, results are properly Cristina Hitchcock RN, Gurinder, johnny and Padmini Jiménez Make Up Operator Helper, appropriately Angela Make Up Operator HelperMendel Edwards displayed, Alcohol based prep dry, Double verification [...] Radiology - Action Plan Outcomes Met? Yes Accounting Consultant Cristina Simons RN Completing Procedure Plan Last Modified By: Cristina Simons RN 03/03/24 13:35:19 Case Comments <None> Finalized By: Cristina Simons RN Document Signatures Signed By: Cristina Simons RN 03/03/24 13:42 [facility] 05-01-2024 Summary of episode note Discharge Instructions Thank you for allowing [facility] to assist you with your healthcare needs. The following is importantdischarge information regarding your hospital visit. What to do next Scheduled Follow-Up Appointments Appointment Type When With Where Contact InformationTelephone 03/04/2024 09:30 AM EDT OLE PACE MD Palliative Care SO OV Follow Up 04/07/2024 03:20 PM EDCharlie Fernandez Gynecologic Oncology [address] [place] [phone] Follow Up Appointments Follow Up with MADELINE APARICIO MD, [facility] When Why: Follow-up as scheduled Where: [address] [place] [address] [facility] [place] [address]- [phone] The Following Activity and Diet Have Been [...] medication providers or retail pharmacies. Education Materials [place] Nephrostomy/Nephroureteral Tube Exchange Discharge Instructions Interventional Radiology [facility] Imaging Services [address] [place], [place] [id number] The procedure that you had done today [...] the feeling of the need to urinate. Pyho-icj-dvamjge pain medication should be used for pain [...] the gauze. Supplies may be obtained at: [facility] [address] [facility] [address] [facility] Any questions or concerns, please contact your physician or Interventional Radiology at [phone] from 8-4:30pm Friday-Friday. If you do not [...] to receive it can visit one of [facility] vaccine clinics. There are many vaccine clinic locations within the [facility]. For locations and available times, please visit [email or web address]/. It is important to note that some COVID mobile vaccine clinics are held outdoors and may be canceled in rainy or stormy conditions. To learn more about pediatric vaccinations (ages 5-11), we invite you to visit the [facility] webpage. https://www.[facility].org/pages/2933-Vseph-Rqanjieknnm-Rnoqzvmths-Veuzf-Ujk stions.htmlTo learn more about the COVID-19 vaccine, we invite you to visit the CDC website for a list of frequently asked questions.https://www.cdc.gov/coronavirus/2019-ncov/vaccines/faq.html [facility] Patient Portal Access Instructions: Stay connected with your healthcare team and access your personal medical information anytime with the [facility] Patient Portal. Please follow the directions below to create your [facility] account: 1.Access the email account you provided upon registration to the hospital/physician office.2.Look for an invitation email from [facility].3.Open the email and access the invitation link: AcceptInvitation to [facility].4.Fill in the required quintero to create your account. To access your account, visit [employer]. Click the blue button labeled Access Patient Portal and then log in with the username and password that you created in the steps above. You will be able to view your test results, lab results, a summary of your visits, upcoming appointments and more. There is also a convenient messaging option where you can send secure messages to your p [employer]ider. In addition, you will have the ability to download any documents or summaries to your computer and/or send the information securely to a physician. Remember that your healthcare information is confidential, so carefully consider who you will allowto register on the [facility] Patient Portal for access to your information. You can also access the [facility] Patient Portal on the [facility] joya. Simply click on Patient Portal and then log into your account. If you would like to receive a full copy of your medical records, please contact the [facility] Medical Records Department by calling [phone], Friday through Friday between 8 a.m. and [...] Call your local pharmacy or go to [email or web address] to find one close to you.3.Make use of household items: Use cat litter or old coffee grounds to dispose medications if other options arenot available. Mix your drugs with these household products, seal them in an airtight container andthrow it into the garbage. Call [facility]: [phone] to be sure your drugs can be [...] aware that I should contact my doctor. Patient/Physical Therapy Aide Signature: Date/Time: Relationship to Patient: Witness Name/Signature: Date/Time: [facility] [id number] Evaluation + Plan noteExtracted from: Title:Preprocedure HP [...] 02/04/2024 and can be found in the [facility] ([employer]). Lacey Loera PA-C Interventional Radiology IR Dept [id number] Available on [employer] Future Appointments Appointment Date:03/04/2024 09:30:00 AM Scheduled Provider:OLE PACE MD Location:[facility] Appointment Type:Telephone Appointment Date:04/07/2024 03:20:00 PM Scheduled Provider: Location:[facility] Appointment Type:SO OV Follow Up Future Scheduled Tests Radiology* IR Nephrostomy Tube Change Lt Guide 09/04/23 [facility] 05-01-2024 Note IR Procedure Record Summary Primary Physician: LACEY LOERA PA-C Finalized Date/Time: 03/03/24 13:42:51 Pt. Name: LALY NAVAS/Sex: 1990 Female Med Rec #: [id number] Physician: Financial #: [id number] Pt. Type: S Room/Bed: [facility]/A Admit/Disch: 03/03/24 10:48:31 - Institution: Allergies [...] RYAN L Aller, Tracie N RN PA-C BRIM GREASER OPERATOR-CONCESSION STAND ATTENDANT Role Performed Primary Surgeon CONCESSION STAND ATTENDANT Auto Parker 1 Details Time In 03/03/24 13:33:00 03/03/24 13:10:00 03/03/24 13:29:00 Time Out 03/03/24 13:39:00 03/03/24 13:46:00 03/03/24 13:46:00 Procedure/Preference IR Nephrostomy Exchange IR Nephrostomy Exchange IR Nephrostomy Exchange Card (SN) (SN) (SN) Last Modified By: Cristina Simons RN, Tracie N RN Cristina Simons RN 03/03/24 13:40:25 03/03/24 13:40:25 03/03/24 13:40:25 Entry 4 Entry 5 Case Attendee Padmini Fairchild, Make Up Operator Helper Grace Tech Role Performed Scrub Technologist Circulating [...] 6 mL Medication CONTRAST ISOVUE 300/30ML 10/CA 131536 Radiology Flouroscopy Fluoroscopy Used? Yes Fluoro Dose [...] RADHA CHU RYAN L Relevant images and YANA-Kristyn ESPINOZA, results are properly Cristina Hitchcock RN, Gurinder, labeled and Padmini Vargas Tech, appropriately Angela Make Up Operator Helper Grace displayed, Alcohol based prep dry, Double [...] Radiology - Action Plan Outcomes Met? Yes Accounting Consultant Cristina Simons RN Completing Procedure Plan Last Modified By: Cristina Simons RN 03/03/24 13:35:19 Case Comments Finalized By: Cristina Simons RN Document Signatures Signed By: Cristina Simons RN 03/03/24 13:42 [facility] [id number] Anesthesiology Consult note Patient: LALY NAVAS Age: [...] Problem list: Medical Anxiety / SNOMED CT 58973010 / Confirmed Asthma / SNOMED CT 529114182 / Confirmed Decreased appetite / SNOMED CT 626158832 / Confirmed Dehydration / SNOMED CT 17395676 / Confirmed Port-A-Cath in place / SNOMED CT 5110729837 / Confirmed Bilateral flank pain / SNOMED CT 416217691 / Confirmed History of chemotherapy / SNOMED CT 1648054414 / Confirmed Hx of cervical cancer / SNOMED CT 8447268684 / Confirmed History of radiation therapy / SNOMED CT 9878872567 / Confirmed Hydronephrosis, left / SNOMED CT 86258863 / Confirmed Acute kidney injury / SNOMED CT 09754965 / Confirmed Left flank pain / SNOMED CT 754223687 / Confirmed Cervical cancer / SNOMED CT 343754113 / Confirmed Moderate protein-calorie malnutrition / SNOMED CT 181364149 / Confirmed Nausea and vomiting / SNOMED CT 82006594 / Confirmed Cancer related pain / SNOMED CT 8141483619 / Confirmed DVT prophylaxis / SNOMED CT 517328470 / Confirmed Palliative care encounter / SNOMED CT 011297211 / Confirmed Premature menopause / SNOMED CT 8304910438 / Confirmed Pyelonephritis / SNOMED CT 21718483 / Confirmed Nephrostomy status / SNOMED CT 753226800 / Confirmed Complicated UTI (urinary tract infection) / SNOMED CT 671890502 / Confirmed Obstructive uropathy / SNOMED CT 02940065 / Confirmed, Active Problems (28) Acute kidney [...] ESBL (extended spectrum beta-lactamase) producing bacteria infection (2460016237): Onset on 02/23/2023 at 32 years. Resolved on 05/07/2023 at 32 years. ESBL (extended spectrum beta-lactamase) producing bacteria infection (8480695317): Onset on 08/09/2022 at 31 years. Resolved on 01/02/2023 at 32 years. Comments: 01/02/2023 SUMEET 10:02 JAMAL Haynes Removed ESBL disease alert from 08/2022 per infection control protocol on 01/02/23. Mass of cervix (803437814): Resolved. Chronic kidney disease, stage 3 (moderate) (3017758932): Resolved. Hydronephrosis of left kidney (75270470): Resolved. Cervicitis (181841686): Resolved. Encounter for antineoplastic chemotherapy (878599339): Resolved. Tinnitus (439539443): Resolved. History of COVID-19 (8386015788): Resolved. Family History: Cancer Sister COPD - Chronic obstructive pulmonary disease Mother Kidney stone Mother Asthma Mother Breast cancer Mother Hypertension Mother Heart disease Mother Substance abuse Father Alcohol abuse Father Stroke Grandparent Father Heart attack Mother Diabetes Grandparent Procedure history: Nephrostomy tube (441852868) on 10/05/2023 at 32 Years. Comments: 11/19/2023 9:37 Fany Sanchez LPN left side Nephrostomy with tube drainage (75267299) in the month of 07/2023 at 32 Years. Comments: 06/13/2020 10:09 JAMAL Guaman left Nephrostomy with tube drainage (17486710) on 01/10/2021 at 30 Years. Cannulation of Portacath (982645748) in 2020 at 30 Years. Comments: 06/13/2020 10:09 GINNY Soliz RN Lizzy Germain right JJ stent (5708063680) on 11/15/2020 at 29 Years. Radiation (562330921) in the month of 06/2020 at 29 Years. Comments: 06/26/2020 6:12 GINNY Burton RN Mayi A via tandems and oviod X2 Cervical biopsy (83416868) in 2019 at 29 Years. Comments: 04/12/2020 18:25 Eri Conte RN pt states she had a cervical biopsy done on 04/07/2020 at [facility] for a cervical mass Tumor cells, benign (52997963) in 2001 at 11 Years. 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 done at [facility] in [place] Social History Social & Psychosocial Habits Alcohol 03/03/2024isk Assessment: Denies Alcohol Use 03/03/2024 Use: Past [...] mmHg Diastolic Blood Pressure Non-Invasive 97 mmHg [place] Vital Signs(last 24 hrs) Last Charted NWC466 mmHg (MARCH 03 11:18) DBPH 97mmHg (MARCH 03 11:18) Measurements from flowsheet : Measurements 03/03/2024 11:18 EDT Height 167.6 cm Height in inches 66 inch(es) Admission Weight 59.5 kg Weight Lbs 130.9 lb Weight Method Actual [place] Body Weight 59.26 kg Type of Scale [...] Musculoskeletal No tenderness. Integumentary: Intact, Warm, Dry, [place]. Neurologic: Alert, Oriented. Review / Management Results review: No qualifying data available , Lab results 03/03/2024 11:22 EDT SN - Preop - CTm Pt Ready for OR/Proced 03/03/2024 11:21 03/03/2024 11:21 EDT Individuals Taught Patient Learning Readiness Willing to learn Barriers to Learning None evident Teaching Method Explanation, Printed materials Preferred Spoken Language Macanese Preferred Written Language Macanese General Infection Prevention Strategies Hand hygiene Surgical Site Infection Prevention SSI FAQ provided Infection Prevention Teaching Evaluation Verbalizes/Nonverbally indicates understanding Pre Procedure/Surgery Education Appropriate expectations, Bring glasses, hearing aids, contact lenscase, Date/Time of procedure/surgery, Hospital gown requirement worn to OR, Leave valuables, jewelry, wedding ring at home, Meds to take or hold, NPO, Responsible clark driver for discharge, Surgical skin prep Procedure/Surgical [...] Weight Lbs 130.9 lb Weight Method Actual [place] Body Weight 59.26 kg Type of Scale [...] Quadrants Present Skin Temperature Warm Skin Description [place], Normal for ethnicity, Dry Skin Integrity Intact [...] Jewelry removed Belongings At Bedside Cell phone, Filling Machine Operator, Pants, Rings, Shirt, Shoes, Undergarments Last Fluid Intake 03/02/2024 23:30 Last Food Intake 03/02/2024 19:00 Last Void 03/03/2024 11:18 03/03/2024 11:14 EDT SN - Preop - CTm Pt in SDS Room 03/03/2024 11:13 03/03/2024 11:14 EDT Designated Person #1 We May Share PHI Designated Person #1 We May Share PHI Designated Person #1 Relationship Sibling Designated Person #2 We May Share PHI [phone] Designated Person #2 Relationship Sibling Additional Designated [...] evident Teaching Method Demonstration Preferred Spoken Language Macanese Preferred Written Language Macanese Teaching Evaluation Verbalizes/Nonverbally indicates understanding Safety Brochure [...] Day Patient History . Assessment and Plan [place] Society of Anesthesiologists (ASA) physical status classification: [...] and wishes to proceed with anesthesia. neg [facility] . Digitally Signed by MIRANDA ARMENDARIZ on 03/03/2024 12:57 PM Digitally Signed by NAYELI BRICE DO on 03/03/2024 01:07 PM [id number] NoteORIGINAL PROCEDURE: Percutaneous nephrostomy tube exchange with fluoroscopy CLINICAL STATEMENT: Patient with cervical cancer and left hydronephrosis managed with left nephrostomy tube LATERALITY: Left VETERINARY BACTERIOLOGIST: Lacey Loera PA-C MATERIALS: 10 Fr X [...] using 2 identifiers, confirming site and side. Drive Away Driver image with contrast injection demonstrates stable appearance [...] Sign Date: 01/23/2024 12:41:56 PM Ordering Provider: [facility] (ID)01-21-2024 Hospital Discharge instructions Patient Education 01/21/2024 14:24:03 -[facility] Discharge Instructions Template (08/2018) [facility]AN[facility] SAME [...] us better serve our patients. Form: 1522 (09505) R: 02/0901/21/2024 14:16:54 Radiology- Nephrostomy/Nephroureteral Tube Exchange 12/26/2022(CUSTOM) [place] Nephrostomy/Nephroureteral Tube Exchange Discharge Instructions Interventional Radiology [facility] Imaging Services [address] [place] [address] The procedure that you had done today [...] the feeling of the need to urinate. Caim-nln-hrwvpfg pain medication should be used for pain [...] the gauze. Supplies may be obtained at: [facility] [address] [facility] [address] [facility] Any questions or concerns, please contact your physician or Interventional Radiology at [phone] from 8-4:30pm Friday-Friday. If you do not have a follow up appointment scheduled at the time of discharge, please call Interventional Radiology at the number listed above. Follow Up Care 01/13/2024 12:19:12 With:MADELINE APARICIO MD, [facility] Address: [address] [place] [address] [place] [address]- [phone] When: Unknown Comments:Follow-up with Dr. Aparicio as needed. [facility] 03-20-2024 Note* Alicia Jean RN: SIGN, AUTHOR, SIGN, AUTHOR, PERFORM Event Display: IR Procedure Record Authored Date: IR Procedure Record Summary Primary Physician: Finalized Date/Time: 01/21/24 13:58:22 Pt. Name: LALY NAVAS/Sex: 1990 Female Med Rec #: [id number] Physician: Financial #: [id number] Pt. Type: S [facility] [...] LOERA ANTHONY J Beans, Aaron RN PA-C BRIM GREASER OPERATOR-CONCESSION STAND ATTENDANT Role Performed Radiology PA/RA Anesthesiologist Auto Parker 1 Details Time In 01/21/24 13:08:00 01/21/24 [...] Colten G Craemer, Alexis Tech Role Performed Auto Parker 1 Scrub Technologist Circulating Technologist Details Time [...] mL Medication OMNIPAQUE 350 50ML 10/PK Y-540 [facility] [id number] Radiology Flouroscopy Fluoroscopy Used? Yes Fluoro Dose (mGy) 9.52 Fluoro Time 0.8 minutes Radiology Local Local Used? Yes Local Type: lido 2 % Local Dose 8cc Radiology Procedure Site Site/Location Left flank Site Condition No complications Suture 2.0 Ethibond Suture Dressing Type Tagaderm, Gauze sponge 4 X 4 Technologist Notes Left neph exchange using 10F x 35cm M-Drain lot # [id number] Last Modified By: Dustin Palm RN 01/21/24 [...] BALDOMERO CHU ANTHONY J Relevant images and BRIM GREASER OPERATOR-OLGA, Dustin Palm results are properly RN, Alicia [...] Radiology - Action Plan Outcomes Met? Yes Accounting Consultant Dustin Palm RN Completing Procedure Plan Last Modified By: Dustin Palm RN 01/21/24 13:32:48 Case Comments <None> Finalized By: Alicia Jean RN Document Signatures Signed By: Alicia Jean RN 01/21/24 13:57 Alicia Jean RN 01/21/24 13:58 [facility] 03-20-2024 Summary of episode note Discharge Instructions Thank you for allowing [facility] to assist you with your healthcare needs. The following is importantdischarge information regarding your hospital visit. Your Care Team PHYSICIAN, NONE What to do next Scheduled Follow-Up Appointments Appointment Type When With Where Contact InformationPALL OV Follow Up 02/03/2024 10:30 AM EDOLE CAMPBELL MD [facility] SO OV Follow Up 04/07/2024 03:20 PM EDT BRITTNI LU APRN-EMPLOYER RELATIONS REPRESENTATIVE [facility] [address] [place] [phone] Follow Up Appointments Follow Up with MADELINE APARICIO MD, [facility] When Why: Follow-up with Dr. Aparicio as needed. Where: [address] [place] [address] [place] [phone] The Following Activity and Diet Have Been [...] us better serve our patients. Form: 1522 (30486) R: 02/09 [place] Nephrostomy/Nephroureteral Tube Exchange Discharge Instructions Interventional Radiology [facility] Imaging Services [address] [place] [address] The procedure that you had done today [...] the feeling of the need to urinate. Yral-lxq-lqsdzet pain medication should be used for pain [...] the gauze. Supplies may be obtained at: [facility] [address] [facility] [address] [facility] Any questions or concerns, please contact your physician or Interventional Radiology at [phone] from 8-4:30pm Friday-Friday. If you do not have a follow up appointment scheduled at the time of discharge, please call Interventional Radiology at the number listed above. Additional Information VACCINATE! IT SAVES LIVES! Members of the community who have not yet received the COVID-19 vaccine and would like to receive it can visit one of [facility] vaccine clinics. There are many vaccine clinic locations within the [facility]. For locations and available times, please visit [email or web address]/. It is important to note that some COVID mobile vaccine clinics are held outdoors and may be canceled in rainy or stormy conditions. To learn more about pediatric vaccinations (ages 5-11), we invite you to visit the [facility] webpage. https://www.[facility].org/pages/7152-Cansy-Emakljjbobo-Fdkebeccwl-Usgsq-Ara stions.htmlTo learn more about the COVID-19 vaccine, we invite you to visit the CDC website for a list of frequently asked questions.https://www.cdc.gov/coronavirus/2019-ncov/vaccines/faq.html [facility] Patient Portal Access Instructions: Stay connected with your healthcare team and access your personal medical information anytime with the [facility] Patient Portal. Please follow the directions below to create your [facility] account: 1.Access the email account you provided upon registration to the hospital/physician office.2.Look for an invitation email from [facility].3.Open the email and access the invitation link: AcceptInvitation to [facility].4.Fill in the required quintero to create your account. To access your account, visit [employer]. Click the blue button labeled Access Patient [...] will allowto register on the [facility] Patient Portal for access to your information. You can also access the [facility] Patient Portal on the [facility] joya. Simply click on Patient Portal and then log into your account. If you would like to receive a full copy of your medical records, please contact the [facility] Medical Records Department by calling [phone], Friday through Friday between 8 a.m. and [...] Call your local pharmacy or go to [email or web address] to find one close to you.3.Make use of household items: Use cat litter or old coffee grounds to dispose medications if other options arenot available. Mix your drugs with these household products, seal them in an airtight container andthrow it into the garbage. Call [facility]: [phone] to be sure your drugs can be [...] been reviewed and explained to me and I,LAYL NAVAS understand my current condition and have read and understand these discharge instructions. I have received a written copy of the plan/instructions. If I have questions, I am aware that I should contact my doctor. Patient/Physical Therapy Aide Signature: Date/Time: Relationship to Patient: Witness Name/Signature: Date/Time: [facility]agvcq[facility]-71-8400 Evaluation + Plan noteExtracted from: Title:IR Pre-Procedure [...] 01/06/2024 and can be found in the [facility] Records ([employer]). Tadeo Leija PA-C Interventional Radiology Pager: [phone] IR dept: [phone] Available on [employer] Future Appointments Appointment Date:02/03/2024 10:30:00 AM Scheduled Provider:OLE PACE MD Location:[facility] Palliative Appointment Type:PALL OV Follow Up Appointment Date:04/07/2024 03:20:00 PM Scheduled Provider:BRITTNI LU Location:[facility] Appointment Type:SO OV Follow Up Future Scheduled Tests Laboratory* Urinalysis 02/14/23 Radiology* IR Neph Cath-Neph Ureter W/Guide Left 06/30/23 * IR Nephrostomy Tube Change Lt Guide 09/04/23 [facility] 03-20-2024 Note IR Procedure Record Summary Primary Physician: Finalized Date/Time: 01/21/24 13:58:22 Pt. Name: LALY NAVAS./Sex: 1990 Female Med Rec #: [id number] Physician: Financial #: [id number] Pt. Type: S Room/Bed: [facility]/A Admit/Disch: 01/21/24 11:00:42 - Institution: [...] LOERA ANTHONY J Beans, Aaron RN PA-C APRN-CONCESSION STAND ATTENDANT Role Performed Radiology PA/RA Anesthesiologist Auto Parker 1 Details Time In 01/21/24 13:08:00 01/21/24 [...] Colten G Craemer, Alexis Tech Role Performed Auto Parker 1 Scrub Technologist Circulating Technologist Details Time [...] mL Medication OMNIPAQUE 350 50ML 10/PK Y-540 [facility] 4557-8646-51 Radiology Flouroscopy Fluoroscopy Used? Yes Fluoro Dose (mGy) 9.52 Fluoro Time 0.8 minutes Radiology Local Local Used? Yes Local Type: lido 2 % Local Dose 8cc Radiology Procedure Site Site/Location Left flank Site Condition No complications Suture 2.0 Ethibond Suture Dressing Type Tagaderm, Gauze sponge 4 X 4 Technologist Notes Left neph exchange using 10F x 35cm M-Drain lot # [id number] Last Modified By: Dustin Palm RN 01/21/24 [...] concerns). When Applicable Confirmation correct Team Members SCHWARZENTRAUB, LACEY side and site marked, Present for Time Out BALDOMERO CHU ANTHONY J Relevant images and BRIM GREASER OPERATOR-Néstor ESPINOZA Aaron results are properly RN, Alicia [...] Radiology - Action Plan Outcomes Met? Yes Accounting Consultant Dustin Palm RN Completing Procedure Plan Last Modified By: Dustin Palm RN 01/21/24 13:32:48 Case Comments Finalized By: Alicia Jean RN Document Signatures Signed By: Alicia Jean RN 01/21/24 13:57 Alicia Jean RN 01/21/24 13:58 [facility] Anesthesiology Consult note Patient: LALY NAVAS Age: [...] Problem list: Medical Anxiety / SNOMED CT 77616150 / Confirmed Asthma / SNOMED CT 767826477 / Confirmed Decreased appetite / SNOMED CT 165518533 / Confirmed Dehydration / SNOMED CT 40786734 / Confirmed Port-A-Cath in place / SNOMED CT 6049913282 / Confirmed Bilateral flank pain / SNOMED CT 140411161 / Confirmed History of chemotherapy / SNOMED CT 1216962119 / Confirmed Hx of cervical cancer / SNOMED CT 5471086233 / Confirmed History of radiation therapy / SNOMED CT 5759321997 / Confirmed Hydronephrosis, left / SNOMED CT 36118069 / Confirmed Acute kidney injury / SNOMED CT 18025763 / Confirmed Left flank pain / SNOMED CT 867341129 / Confirmed Cervical cancer / SNOMED CT 958927840 / Confirmed Moderate protein-calorie malnutrition / SNOMED CT 824419410 / Confirmed Nausea and vomiting / SNOMED CT 65133924 / Confirmed Cancer related pain / SNOMED CT 8812127339 / Confirmed DVT prophylaxis / SNOMED CT 758991587 / Confirmed Palliative care encounter / SNOMED CT 302903134 / Confirmed Premature menopause / SNOMED CT 1643381972 / Confirmed Pyelonephritis / SNOMED CT 15081337 / Confirmed Nephrostomy status / SNOMED CT 725322029 / Confirmed Complicated UTI (urinary tract infection) / SNOMED CT 455492104 / Confirmed Obstructive uropathy / SNOMED CT 60837748 / Confirmed, Active Problems (28) Acute kidney [...] ESBL (extended spectrum beta-lactamase) producing bacteria infection (6867980021): Onset on 02/23/2023 at 32 years. Resolved on 05/07/2023 at 32 years. ESBL (extended spectrum beta-lactamase) producing bacteria infection (3289507839): Onset on 08/09/2022 at 31 years. Resolved on 01/02/2023 at 32 years. Comments: 01/02/2023 EST 10:02 JAMAL Haynesalice Jiménez Removed ESBL disease alert from 08/2022 per infection control protocol on 01/02/23. Mass of cervix (201305648): Resolved. Chronic kidney disease, stage 3 (moderate) (0977806993): Resolved. Hydronephrosis of left kidney (93612440): Resolved. Cervicitis (577725615): Resolved. Encounter for antineoplastic chemotherapy (041709231): Resolved. Tinnitus (907010505): Resolved. History of COVID-19 (5145532474): Resolved. Procedure history: Nephrostomy tube (646894078) on 10/05/2023 at 32 Years. Comments: 11/19/2023 9:37 Fany Sanchez LPN left side Nephrostomy with tube drainage (97325881) in the month of 07/2023 at 32 Years. Comments: 06/13/2020 10:09 JAMAL Guaman left Nephrostomy with tube drainage (08574255) on 01/10/2021 at 30 Years. Cannulation of Portacath (388927308) in 2020 at 30 Years. Comments: 06/13/2020 10:09 JAMAL Guaman right JJ stent (4772979833) on 11/15/2020 at 29 Years. Radiation (742356427) in the month of 06/2020 at 29 Years. Comments: 06/26/2020 6:12 JAMAL Braswell A via tandems and oviod X2 Cervical biopsy (74854344) in 2019 at 29 Years. Comments: 04/12/2020 18:25 Eri Conte RN pt states she had a cervical biopsy done on 04/07/2020 at [facility] for a cervical mass Tumor cells, benign (34553147) in 2001 at 11 Years. 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 done at [facility] in [place] Social History Social & Psychosocial Habits Alcohol [...] intake amount: 1 can pop per day 01/06/2024 Assessment: No Risk 01/06/2024 Type of diet: [...] Examination Vital Signs(last 24 hrs) Last Charted WTS846 mmHg (JAN 20 11:50) DBP84 mmHg (JAN 20 11:50) Measurements from flowsheet : Measurements 01/21/2024 11:50 EDT Height 167.6 cm Height in inches 66 inch(es) Admission Weight 58.2 kg Weight Lbs 128 lb [place] Body Weight 59.26 kg Admission Body Mass [...] Documentation reviewed: Current records. Assessment and Plan [place] [employer] of Anesthesiologists (ASA) physical status classification: [...] HILDA HADDAD MD on 01/21/2024 01:09 PM [facility]19 History and physical note IR PREPROCEDURE H&P [...] 01/06/2024 and can be found in the [facility] ([facility]). Tdaeo Leija PA-C Interventional Radiology Pager: [phone] IR dept: x [phone] Available on [employer] Digitally Signed by TADEO LEIJA PA-C on 01/21/2024 01:01 PM Digitally Signed by VIRAL MANUEL MD on 01/21/2024 09:32 PM [facility]jc[facility]71-8739 Interventional radiology Progress note Lizy had called today and said she is not feeling well and to cancel her neph tube change with anesthesia. I called anesthesia and let them know and transferred her to [facility] for rescheduling. Digitally Signed by Patti Ching on 01/14/2024 08:59 AM [facility]qqihwyc63-20-8813 NoteORIGINAL PROCEDURE: IR NEPHROSTOMY TUBE CHANGE MODERATE [...] Sign Date: 12/04/2023 6:36:53 PM Ordering Provider: [facility] (ID)12-03-2023 Hospital Discharge instructions Patient Education 12/03/2023 12:30:02 Radiology- Nephrostomy/Nephroureteral Tube Exchange 12/26/2022(CUSTOM) [place] Nephrostomy/Nephroureteral Tube Exchange Discharge Instructions Interventional Radiology [facility] Imaging Services [address] [place] [address] The procedure that you had done today [...] the feeling of the need to urinate. Gowm-wmx-qmqdqxi pain medication should be used for pain [...] the gauze. Supplies may be obtained at: [facility] [address] [facility] [address] [facility] Any questions or concerns, please contact your physician or Interventional Radiology at [phone] from 8-4:30pm Friday-Friday. If you do not have a follow up appointment scheduled at the time of discharge, please call Interventional Radiology at the number listed above. Follow Up Care 10/14/2023 17:16:46 With:RITA YEH MD, [facility] Address: [address] [place] [address] [facility] [place] [address]- [phone] When: Unknown Comments:Follow-up as scheduled. Schedule appointment as soon as possible [facility] 01-31-2024 Evaluation + Plan noteExtracted from: Title:IR [...] 11/19/2023 and can be found in the [facility] ([place]). Tadeo Leija PA-C Interventional Radiology Pager: [phone] IR dept: x [phone] [facility] Future Appointments Appointment Date:12/08/2023 03:00:00 PM Scheduled Provider:OLE PACE MD Location:[facility] Palliative Appointment Type:PALL OV Follow Up Appointment Date:12/08/2023 03:40:00 PM Scheduled Provider:BRITTNI LU Location:[facility] Appointment Type:SO OV Appointment Date:01/14/2024 10:00:00 AM Scheduled Provider: Location:IR Appointment Type:IR Nephrostomy Exchange Future Scheduled Tests Laboratory* Urinalysis 02/14/23 Radiology* IR Nephrostomy Exchange 01/14/24 * IR Neph Cath-Neph Ureter W/Guide Left 06/30/23 * IR Nephrostomy Tube Change Lt Guide 09/04/23 [facility] 01-31-2024 Note* Lexi Marcano RN: SIGN, AUTHOR, SIGN, AUTHOR, PERFORM Event Display: IR Procedure Record Authored Date: [id number] IR Procedure Record Summary Primary Physician: RITA YHE MD Finalized Date/Time: 12/03/23 11:48:38 Pt. Name: LALY NAVAS/Sex: 1990 Female Med Rec #: [id number] Physician: Financial #: [id number] Pt. Type: S Room/Bed: 0128/A Admit/Disch: 12/03/23 09:22:31 - Institution: Allergies identified in patient's electronic medical record at time of printing on 12/03/23 Entry 1 Entry 2 Entry 3 Substance Haldol Oranges penicillin Reaction Type Allergy Allergy Allergy Last Modified By: Urelas, FanyShoshana Rodriguez LPN, RN, Kimberly V. RN 11/19/23 09:39:23 07/21/23 10:11:02 07/21/23 10:10:45 Case Attendance- IR Entry 1 Entry 2 Entry 3 Case Attendee RITA YEH MD, Jacque M. Herrick, Make Up Operator Helper Leatha L Role Performed Primary Surgeon Scrub Technologist Circulating Technologist Details Time In 12/03/23 11:18:00 12/03/23 11:18:00 12/03/23 11:18:00 Time Out 12/03/23 11:53:00 12/03/23 11:53:00 12/03/23 11:53:00 Procedure/Preference IR Nephrostomy Exchange IR Nephrostomy Exchange IR Nephrostomy Exchange Card (SN) (SN) (SN) Last Modified By: Lexi Marcano RN Lexi Marcano RN, Caitlin C RN 12/03/23 11:48:19 12/03/23 11:48:19 12/03/23 11:48:19 Entry 4 Case Attendee Lexi Marcano RN Role Performed Auto Parker 1 Details Time In 12/03/23 11:18:00 Time [...] mL Medication OMNIPAQUE 300 50ML 10/PK Y-530 [facility] 9190-8124-85 Radiology Flouroscopy Fluoroscopy Used? Yes Fluoro Dose (mGy) 5.39 Fluoro Time 1.6 min Radiology Local Local Used? Yes Local Type: lidocaine 2% Local Dose 4cc Radiology Procedure Site Site/Location left flank Site Condition No complications Dressing Type Bioclusive 4 X 5, Gauze Technologist Notes 10f x 35cm m-drain sponge 4 X 4 lot#[id number] Last Modified By: Lexi Marcano RN 12/03/23 [...] Radiology - Action Plan Outcomes Met? Yes Accounting Consultant Lexi Marcano RN Completing Procedure Plan Last Modified By: Lexi Marcano RN 12/03/23 11:33:21 Case Comments <None> Finalized By: Lexi Marcano RN Document Signatures Signed By: Lexi Marcano RN 12/03/23 11:48 Lexi Marcano RN 12/03/23 11:48 [facility] 01-31-2024 Summary of episode note Discharge Instructions Thank you for allowing [facility] to assist you with your healthcare needs. The following is importantdischarge information regarding your hospital visit. Your Care Team PHYSICIAN, NONE What to do next Scheduled Follow-Up Appointments Appointment Type When With Where Contact InformationPALL OV Follow Up 12/08/2023 03:00 PM OLE MCNEIL MD [facility] SO OV 12/08/2023 03:40 PM BRITTNI COLEMAN BRIM GREASER OPERATOR-EMPLOYER RELATIONS REPRESENTATIVE [facility] [address] [place] [address] IR Nephrostomy Exchange 01/14/2024 10:00 AM EDT IR Follow Up Appointments Follow Up with RITA YEH MD, [facility] When Why: Follow-up as scheduled. Schedule appointment as soon as possible Where: [address] [place] [address] [facility] [place] [address]- [phone] The Following Activity and Diet Have Been [...] medication providers or retail pharmacies. Education Materials [place] Nephrostomy/Nephroureteral Tube Exchange Discharge Instructions Interventional Radiology [facility] Imaging Services [address] [place] [address] The procedure that you had done today [...] the feeling of the need to urinate. Ifnd-qqs-jxuhspv pain medication should be used for pain [...] the gauze. Supplies may be obtained at: [facility] [address] [facility] [address] [facility] Any questions or concerns, please contact your physician or Interventional Radiology at [phone] from 8-4:30pm Friday-Friday. If you do not have a follow up appointment scheduled at the time of discharge, please call Interventional Radiology at the number listed above. Additional Information VACCINATE! IT SAVES LIVES! Members of the community who have not yet received the COVID-19 vaccine and would like to receive it can visit one of [facility] vaccine clinics. There are many vaccine clinic locations within the [facility]. For locations and available times, please visit https://[email or web address].[place].gov/. It is important to note that some COVID mobile vaccine clinics are held outdoors and may be canceled in rainy or stormy conditions. To learn more about pediatric vaccinations (ages 5-11), we invite you to visit the [employer] webpage. https://www.[employer].org/pages/5727-Xuifc-Iqsoxplnqcw-Lvawabaawq-Xixau-Wpl stions.htmlTo learn more about the COVID-19 vaccine, we invite you to visit the CDC website for a list of frequently asked questions.https://www.cdc.gov/coronavirus/2019-ncov/vaccines/faq.html [facility] Patient Portal Access Instructions: Stay connected with your healthcare team and access your personal medical information anytime with the [facility] Patient Portal. Please follow the directions below to create your [facility] account: 1.Access the email account you provided upon registration to the hospital/physician office.2.Look for an invitation email from [facility].3.Open the email and access the invitation link: AcceptInvitation to [facility].4.Fill in the required quintero to create your account. To access your account, visit [employer]ujieOneChart. Click the blue button labeled Access Patient [...] will allowto register on the [facility] for access to your information. You can also access the [facility] Patient Portal on the [facility] joya. Simply click on Patient Portal and then log into your account. If you would like to receive a full copy of your medical records, please contact the [facility] Medical Records Department by calling [phone], Friday through Friday between 8 a.m. and [...] Call your local pharmacy or go to http://Aptito/5W4Ot1z to find one close to you.3.Make use of household items: Use cat litter or old coffee grounds to dispose medications if other options arenot available. Mix your drugs with these household products, seal them in an airtight container andthrow it into the garbage. Call [facility]: [phone] to be sure your drugs can be [...] aware that I should contact my doctor. Patient/Physical Therapy Aide Signature: Date/Time: Relationship to Patient: Witness Name/Signature: Date/Time: [facility]ivawdx45-83-5507 Note IR Procedure Record Summary Primary Physician: RITA YEH MD Finalized Date/Time: 12/03/23 11:48:38 Pt. Name: LALY NAVAS D.O.B./Sex: 1990 Female Med Rec #: [id number] Physician: Financial #: [id number] Pt. Type: S Room/Bed: [facility]8/A [...] Attendee RITA YEH MD, Jacque M. Herrick, Make Up Operator Helper Leatha Austen Role Performed Primary Surgeon Scrub Technologist Circulating Technologist Details Time In 12/03/23 11:18:00 12/03/23 11:18:00 12/03/23 11:18:00 Time Out 12/03/23 11:53:00 12/03/23 11:53:00 12/03/23 11:53:00 Procedure/Preference IR Nephrostomy Exchange IR Nephrostomy Exchange IR Nephrostomy Exchange Card (SN) (SN) (SN) Last Modified By: Lexi Marcano RN Lexi Marcano RN, Caitlin C RN 12/03/23 11:48:19 12/03/23 11:48:19 12/03/23 11:48:19 Entry 4 Case Attendee Lexi Marcano RN Role Performed Auto Parker 1 Details Time In 12/03/23 11:18:00 Time [...] mL Medication OMNIPAQUE 300 50ML 10/PK Y-530 [facility] 9338-7138-67 Radiology Flouroscopy Fluoroscopy Used? Yes Fluoro Dose (mGy) 5.39 Fluoro Time 1.6 min Radiology Local Local Used? Yes Local Type: lidocaine 2% Local Dose 4cc Radiology Procedure Site Site/Location left flank Site Condition No complications Dressing Type Bioclusive 4 X 5, Gauze Technologist Notes 10f x 35cm m-drain sponge 4 X 4 lot#[id number] Last Modified By: Lexi Marcano RN 12/03/23 [...] team. When Applicable Confirmation correct Team Members RAMIRO, RITA MD, side and site marked, Present for [...] Radiology - Action Plan Outcomes Met? Yes Accounting Consultant Lexi Marcano RN Completing Procedure Plan Last Modified By: Lexi Marcano RN 12/03/23 11:33:21 Case Comments Finalized By: Lexi Marcano RN Document Signatures Signed By: Lexi Marcano RN 12/03/23 11:48 Lexi Marcano RN 12/03/23 11:48 [facility]kfhonvz87-38-0367 Anesthesiology Consult note Patient: LALY NAVAS Age: [...] Problem list: Medical Anxiety / SNOMED CT 51392751 / Confirmed Asthma / SNOMED CT 342368873 / Confirmed Decreased appetite / SNOMED CT 996202054 / Confirmed Dehydration / SNOMED CT 31246251 / Confirmed Port-A-Cath in place / SNOMED CT 2831678804 / Confirmed Bilateral flank pain / SNOMED CT 319929275 / Confirmed History of chemotherapy / SNOMED CT 5077128101 / Confirmed Hx of cervical cancer / SNOMED CT 8120051398 / Confirmed History of radiation therapy / SNOMED CT 0281991931 / Confirmed Hydronephrosis, left / SNOMED CT 26609391 / Confirmed Acute kidney injury / SNOMED CT 19840277 / Confirmed Left flank pain / SNOMED CT 098146944 / Confirmed Cervical cancer / SNOMED CT 211094747 / Confirmed Moderate protein-calorie malnutrition / SNOMED CT 292042393 / Confirmed Nausea and vomiting / SNOMED CT 64111969 / Confirmed Cancer related pain / SNOMED CT 7143796445 / Confirmed DVT prophylaxis / SNOMED CT 333296372 / Confirmed Palliative care encounter / SNOMED CT 844390131 / Confirmed Premature menopause / SNOMED CT 1709007222 / Confirmed Pyelonephritis / SNOMED CT 27972246 / Confirmed Nephrostomy status / SNOMED CT 190386094 / Confirmed Complicated UTI (urinary tract infection) / SNOMED CT 425781992 / Confirmed Obstructive uropathy / SNOMED CT 01289339 / Confirmed, Active Problems (28) Acute kidney [...] ESBL (extended spectrum beta-lactamase) producing bacteria infection (5300360578): Onset on 02/23/2023 at 32 years. Resolved on 05/07/2023 at 32 years. ESBL (extended spectrum beta-lactamase) producing bacteria infection (4482506217): Onset on 08/09/2022 at 31 years. Resolved on 01/02/2023 at 32 years. Comments: 01/02/2023 EST 10:02 JAMAL Haynes ESBL disease alert from 08/2022 per infection control protocol on 01/02/23. Mass of cervix (530889260): Resolved. Chronic kidney disease, stage 3 (moderate) (4292995309): Resolved. Hydronephrosis of left kidney (85429269): Resolved. Cervicitis (811730154): Resolved. Encounter for antineoplastic chemotherapy (613638386): Resolved. Tinnitus (773768922): Resolved. History of COVID-19 (5883115588): Resolved. Procedure history: Nephrostomy tube (471094446) on 10/05/2023 at 32 Years. Comments: 11/19/2023 9:37 Fany Sanchez LPN left side Nephrostomy with tube drainage (79458224) in the month of 07/2023 at 32 Years. Comments: 06/13/2020 10:09 JAMAL Guaman left Nephrostomy with tube drainage (13749796) on 01/10/2021 at 30 Years. Cannulation of Portacath (221161538) in 2020 at 30 Years. Comments: 06/13/2020 10:09 JAMAL Guaman right JJ stent ([id number]) on 11/15/2020 at 29 Years. Radiation (006278397) in the month of 06/2020 at 29 Years. Comments: 06/26/2020 6:12 GINNY Burton RN Mayi A via tandems and oviod X2 Cervical biopsy (96192764) in 2019 at 29 Years. Comments: 04/12/2020 18:25 Eri Conte RN pt states she had a cervical biopsy done on 04/07/2020 at [facility] for a cervical mass Tumor cells, benign (46823521) in 2001 at 11 Years. 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 done at [facility] in [place] Social History Social & Psychosocial Habits Alcohol 4Risk Assessment: Denies Alcohol Use 12/03/2023 Use: Past [...] Weight 58.6 kg Weight Lbs 128.9 lb [place] Body Weight 59.26 kg Admission Body Mass [...] records, Reviewed prior records. Assessment and Plan [place] [employer] of Anesthesiologists (ASA) physical status classification: [...] DAVID SMITH MD on 12/03/2023 11:13 AM [facility]rakxklj91-15-3340 History and physical note IR PREPROCEDURE H&P [...] 11/19/2023 and can be found in the [facility] ([facility]). Tadeo Leija PA-C Interventional Radiology Pager: [phone] IR dept: x [phone] [facility] Digitally Signed by TADEO LEIJA PA-C on 12/03/2023 10:44 AM [facility]yprxhds59-71-5830 Hospital Discharge instructions Patient Education 10/22/2023 16:36:58 1-SDS Discharge Instructions Template (08/2018)(CUSTOM) [place] SAME DAY SURGERY DISCHARGE INSTRUCTIONS PLEASE FOLLOW [...] us better serve our patients. Form: [id number]) R: 02/0910/22/2023 16:36:17 Radiology- Nephrostomy/Nephroureteral Tube Exchange 12/26/2022(CUSTOM) [place] Nephrostomy/Nephroureteral Tube Exchange Discharge Instructions Interventional Radiology [facility] Imaging Services [address] [place] [address] The procedure that you had done today [...] the feeling of the need to urinate. Dcrc-rga-tvefefb pain medication should be used for pain [...] may be obtained at: [facility] [address] [facility] [address] [facility] Any questions or concerns, please contact your physician or Interventional Radiology at [phone] from 8-4:30pm Friday-Friday. If you do not have a follow up appointment scheduled at the time of discharge, please call Interventional Radiology at the number listed above. Follow Up Care 10/09/2023 15:32:25 With:BRITTNI LUEMPLOYER RELATIONS REPRESENTATIVE Address: [address] [place] [address] [facility] [place] [address]- [phone] When: Unknown Comments:Follow-up as scheduled [facility] 12-20-2023 Note* Cristina Simons RN: SIGN, AUTHOR, SIGN, AUTHOR, PERFORM Event Display: IR Procedure Record Authored Date: [id number] IR Procedure Record Summary Primary Physician: VIRAL MASON MD, Ph.D Finalized Date/Time: 10/22/23 15:04:59 Pt. Name: LALY NAVAS /Sex: 1990 Female Med Rec #: [id number] Physician: Financial #: [id number] Pt. Type: S Room/Bed: [facility]5/A [...] Tech Kathy A Role Performed Primary Surgeon Auto Parker 1 Scrub Technologist Details Time In 10/22/23 14:47:00 10/22/23 14:31:00 10/22/23 14:31:00 Time Out 10/22/23 14:54:00 10/22/23 15:02:00 10/22/23 15:02:00 Procedure/Preference IR Nephrostomy Exchange IR Nephrostomy Exchange IR Nephrostomy Exchange Card (SN) (SN) (SN) Last Modified By: Cristina Simons RN, Tracie N RN Aller, Tracie N RN 10/22/23 14:56:59 10/22/23 14:56:59 10/22/23 14:56:59 Entry 4 Entry 5 Case Attendee Karolina Prater MATTHEW J APRN-CONCESSION STAND ATTENDANT Role Performed Circulating Technologist CONCESSION STAND ATTENDANT Details Time In 10/22/23 14:31:00 10/22/23 14:31:00 Time Out 10/22/23 15:02:00 10/22/23 15:02:00 Procedure/Preference IR Nephrostomy Exchange IR Nephrostomy Exchange Card (SN) (SN) Last Modified By: Cristina Simons RN, Tracie N RN 10/22/23 14:56:59 10/22/23 14:56:59 Radiology Procedures- IR Entry 1 Procedure/Preference IR Nephrostomy Exchange Actual Procedure IR NEPH TUBE CHANGE Card (SN) Primary Procedure Yes Primary Surgeon VIRAL AMSON MD, Ph.D Anesthesia/Sedation General, Local Type Additional [...] mL Medication OMNIPAQUE 300 50ML 10/PK Y-530 [facility] 4660-2102-09 Radiology Flouroscopy Fluoroscopy Used? Yes Fluoro Dose [...] labeled and ELIANA Bermudez MATTHEW J appropriately BRIM GREASER OPERATOR-CONCESSION STAND ATTENDANT displayed, Alcohol based prep dry, Double verification [...] Radiology - Action Plan Outcomes Met? Yes Accounting Consultant Cristina Simons RN Completing Procedure Plan Last Modified By: Cristina Simons RN 10/22/23 14:40:41 Case Comments <None> Finalized By: Cristina Simons RN Document Signatures Signed By: Cristina Simons RN 10/22/23 14:57 Cristina Simons RN 10/22/23 15:04 [facility] 12-20-2023 Summary of episode note Discharge Instructions Thank you for allowing [facility] to assist you with your healthcare needs. The following is importantdischarge information regarding your hospital visit. Your Care Team FLIP MARTIN MD What to do next Scheduled Follow-Up Appointments Appointment Type When With Where Contact InformationSO OV Follow Up 10/31/2023 10:00 AM EST BRITTNI LU [facility] [address] [place] [phone] PALL OV Follow Up 11/18/2023 09:30 AM EST OLE PACE MD [facility] Nephrostomy Exchange 12/03/2023 11:00 AM EST IR Follow Up Appointments Follow Up with BRITTNI LU When Why: Follow-up as scheduled Where: [address] [place] [address] [place] [address]- [phone] The Following Activity and Diet Have Been [...] us better serve our patients. Form: 1522 (92874) R: 02/09 [place] Nephrostomy/Nephroureteral Tube Exchange Discharge Instructions Interventional Radiology [facility] Imaging Services [address] [place] [address] The procedure that you had done today [...] the feeling of the need to urinate. Njgc-tsn-ouyuiud pain medication should be used for pain [...] the gauze. Supplies may be obtained at: [facility] [address] [facility] [address] [facility] Any questions or concerns, please contact your physician or Interventional Radiology at [phone] from 8-4:30pm Friday-Friday. If you do not have a follow up appointment scheduled at the time of discharge, please call Interventional Radiology at the number listed above. Additional Information VACCINATE! IT SAVES LIVES! Members of the community who have not yet received the COVID-19 vaccine and would like to receive it can visit one of [facility] vaccine clinics. There are many vaccine clinic locations within the [facility]. For locations and available times, please visit [email or web address].[place].gov/. It is important to note that some COVID mobile vaccine clinics are held outdoors and may be canceled in rainy or stormy conditions. To learn more about pediatric vaccinations (ages 5-11), we invite you to visit the [facility] webpage. https://www.[facility].org/pages/7164-Cwvcs-Hcbitmqgapq-Acbspvnkzm-Orhsz-Uuo stions.htmlTo learn more about the COVID-19 vaccine, we invite you to visit the CDC website for a list of frequently asked questions.https://www.cdc.gov/coronavirus/2019-ncov/vaccines/faq.html [facility] Patient Portal Access Instructions: Stay connected with your healthcare team and access your personal medical information anytime with the [facility] Patient Portal. Please follow the directions below to create your [facility] account: 1.Access the email account you provided upon registration to the hospital/physician office.2.Look for an invitation email from [facility].3.Open the email and access the invitation link: AcceptInvitation to [facility].4.Fill in the required quintero to create your account. To access your account, visit [email or web address]. Click the blue button labeled Access Patient [...] who you will allowto register on the [facility] Patient Portal for access to your information. You can also access the [facility] Patient Portal on the [facility] joya. Simply click on Patient Portal and then log into your account. If you would like to receive a full copy of your medical records, please contact the [facility] Medical Records Department by calling [phone], Friday through Friday between 8 a.m. and [...] Call your local pharmacy or go to http://bit.ly/7T6Tj3y to find one close to you.3.Make use of household items: Use cat litter or old coffee grounds to dispose medications if other options arenot available. Mix your drugs with these household products, seal them in an airtight container andthrow it into the garbage. Call [facility]: [phone] to be sure your drugs can be [...] aware that I should contact my doctor. Patient/Physical Therapy Aide Signature: Date/Time: Relationship to Patient: Witness Name/Signature: Date/Time: [id number] Note IR Procedure Record Summary Primary Physician: VIRAL MASON MD, Ph.D Finalized Date/Time: 10/22/23 15:04:59 Pt. Name: LALY NAVAS /Sex: 1990 Female Med Rec #: [id number] Physician: Financial #: [id number] Pt. Type: S Room/Bed: [facility]5/A [...] VIRAL MASON MD, Ph.D Cristina Simons RN Make Up Operator HelperMendel Jenkins Role Performed Primary Surgeon Auto Parker 1 Scrub Technologist Details Time In 10/22/23 14:47:00 10/22/23 14:31:00 10/22/23 14:31:00 Time Out 10/22/23 14:54:00 10/22/23 15:02:00 10/22/23 15:02:00 Procedure/Preference IR Nephrostomy Exchange IR Nephrostomy Exchange IR Nephrostomy Exchange Card (SN) (SN) (SN) Last Modified By: Cristina Simons RN, Tracie N RN Aller, Tracie N RN 10/22/23 14:56:59 10/22/23 14:56:59 10/22/23 14:56:59 Entry 4 Entry 5 Case Attendee Karolina Prater MATTHEW J APRN-CONCESSION STAND ATTENDANT Role Performed Circulating Technologist CONCESSION STAND ATTENDANT Details Time In 10/22/23 14:31:00 10/22/23 14:31:00 [...] mL Medication OMNIPAQUE 300 50ML 10/PK Y-530 [facility] 2726-9600-63 Radiology Flouroscopy Fluoroscopy Used? Yes Fluoro Dose [...] and RN, Sam Junior results are properly Devika Jenkins, Karolina Prater labeled and ELIANA Bermudez MATTHEW J appropriately BRIM GREASER OPERATOR-CONCESSION STAND ATTENDANT displayed, Alcohol based prep dry, Double verification [...] Radiology - Action Plan Outcomes Met? Yes Accounting Consultant Cristina Simons RN Completing Procedure Plan Last Modified By: Cristina Simons RN 10/22/23 14:40:41 Case Comments Finalized By: Cristina Simons RN Document Signatures Signed By: Cristina Simons RN 10/22/23 14:57 Cristina Simons RN 10/22/23 15:04 [id number] Note ORIGINAL EXAMINATION: IR NEPHROSTOMY TUBE NEHVKQ7410/22/2023 3:02 pm IR NEPHROSTOMY TUBE CHANGE HISTORY: [...] Sign Date: 10/22/2023 4:31:01 PM Ordering Provider: [facility]12[facility]20-2023 Procedure note Interventional Radiology Procedure Note Pre-procedure Diagnosis: obstruction Post-procedure Diagnosis: same Procedure: 10F Neph exchange Technique/Findings: Routine left neph tube exchange. Anesthesia utilized. Full report to follow. Orders in [employer]. Performed by: Viral Mason MD, PhD Hardening Machine Operator Helper: None Complications: None Estimated Blood loss: Minimal Specimen: None Digitally Signed by VIRAL MASON MD, Ph.D on 10/22/2023 02:58 PM [facility]xetrnil42-80-6236 Anesthesiology Consult note Patient: LALY NAVAS Age: [...] food, # 120 EA, 0 Refill(s), Pharmacy: [facility], 167.6, cm, 05/15/23 15:33:00 EDT, Height LORazepam 1 mg oral tablet: Dose : 1 mg = 1 tab(s), Oral, BID, # 60 tab(s), 0 Refill(s), Pharmacy: [facility] Cancer related pain History of cervical cancer, 167.6, cm, 09/03/23 13:59:00 EDT, Height, 63.6, kg, 09/03/23 13:59:00 EDT, Dosing Weight OxyContin 15 mg oral tablet, extended release: Dose : 15 mg = 1 tab(s), Oral, BID, # 60 tab(s), 0 Refill(s), Pharmacy: [facility] Cancer related pain Cervical ca, 167.6, cm, 09/03/23 13:59:00 EDT, Height, 63.6, kg, 09/03/23 13:59:00 EDT, Dosing Weight ondansetron 4 mg oral tablet: Dose : 4 mg = 1 tab(s), Oral, q6h, PRN Nausea/Vomiting, # 60 tab(s), 2 Refill(s), Pharmacy: [facility] 167.6, cm, 09/03/23 13:59:00 EDT, Height, kg, 09/03/23 13:59:00 EDT, Dosing Weight oxyCODONE 15 mg oral tablet ( IMMEDIATE release ): Dose : 15 mg = 1 tab(s), Oral, q6hr, may fill on10/05/23, # 120 tab(s), 0 Refill(s), Pharmacy: [facility] Cervical cancer, 167.6, cm, 09/03/23 13:59:00 EDT, [...] Problem list: Medical Anxiety / SNOMED CT 46721383 / Confirmed Asthma / SNOMED CT 717003214 / Confirmed Decreased appetite / SNOMED CT 861912545 / Confirmed Dehydration / SNOMED CT 79687192 / Confirmed Port-A-Cath in place / SNOMED CT 1206450130 / Confirmed Bilateral flank pain / SNOMED CT 046525715 / Confirmed History of chemotherapy / SNOMED CT 6921751299 / Confirmed Hx of cervical cancer / SNOMED CT 7010077703 / Confirmed History of radiation therapy / SNOMED CT 4812497824 / Confirmed Hydronephrosis, left / SNOMED CT 62791402 / Confirmed Acute kidney injury / SNOMED CT 76927112 / Confirmed Left flank pain / SNOMED CT 334501174 / Confirmed Cervical cancer / SNOMED CT 306416603 / Confirmed Moderate protein-calorie malnutrition / SNOMED CT 964270133 / Confirmed Nausea and vomiting / SNOMED CT 60349251 / Confirmed Cancer related pain / SNOMED CT 8167332903 / Confirmed DVT prophylaxis / SNOMED CT 533235650 / Confirmed Palliative care encounter / SNOMED CT 262036147 / Confirmed Premature menopause / SNOMED CT 4285544375 / Confirmed Pyelonephritis / SNOMED CT 57697495 / Confirmed Nephrostomy status / SNOMED CT 110967718 / Confirmed Complicated UTI (urinary tract infection) / SNOMED CT 535593311 / Confirmed Obstructive uropathy / SNOMED CT 97598165 / Confirmed, Active Problems (28) Acute kidney [...] ESBL (extended spectrum beta-lactamase) producing bacteria infection (0514937859): Onset on 02/23/2023 at 32 years. Resolved on 05/07/2023 at 32 years. ESBL (extended spectrum beta-lactamase) producing bacteria infection (3418105638): Onset on 08/09/2022 at 31 years. Resolved on 01/02/2023 at 32 years. Comments: 01/02/2023 SUMEET 10:02 JAMAL Haynes Removed ESBL disease alert from 08/2022 per infection control protocol on 01/02/23. Mass of cervix (775033011): Resolved. Chronic kidney disease, stage 3 (moderate) (2225064609): Resolved. Hydronephrosis of left kidney (69626929): Resolved. Cervicitis (259281591): Resolved. Encounter for antineoplastic chemotherapy (798352604): Resolved. Tinnitus (777393485): Resolved. History of COVID-19 (7180676565): Resolved. Family History: Cancer Sister COPD - Chronic obstructive pulmonary disease Mother Kidney stone Mother Asthma Mother Breast cancer Mother Hypertension Mother Heart disease Mother Substance abuse Father Alcohol abuse Father Stroke Grandparent Father Heart attack Mother Diabetes Grandparent Procedure history: Nephrostomy with tube drainage (73485011) in the month of 07/2023 at 32 Years. Comments: 06/13/2020 10:09 JAMAL Guaman left Nephrostomy with tube drainage (41986866) on 01/10/2021 at 30 Years. Cannulation of Portacath (582148384) in 2020 at 30 Years. Comments: 06/13/2020 10:09 JAMAL Guaman right JJ stent (4359863046) on 11/15/2020 at 29 Years. Radiation (768662457) in the month of 06/2020 at 29 Years. Comments: 06/26/2020 6:12 GINNY Burton RN Mayi A via tandems and oviod X2 Cervical biopsy (12035394) in 2019 at 29 Years. Comments: 04/12/2020 18:25 Eri Conte RN pt states she had a cervical biopsy done on 04/07/2020 at [facility] for a cervical mass Tumor cells, benign (26814090) in 2001 at 11 Years. 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 done at [facility] in [place] Social History Social & Psychosocial Habits Alcohol [...] Resp Rate 16 br/min (OCT 22 10:16) UQM718 mmHg (OCT 22 10:16) DBP83 mmHg (OCT 22 10:16) Measurements from flowsheet : Measurements 10/22/2023 10:16 EST Height 167.6 cm Height in inches 66 inch(es) Admission Weight 61.4 kg Weight Lbs 135.1 lb [place] Body Weight 59.26 kg Admission Body Mass Index 21.86 m2 General: Alert and oriented. Airway: Mallampati classification: II (soft palate, fauces, uvula visible). Dentition Evaluation: Intact. Respiratory: Lungs are clear to auscultation, Respirations are non-labored. Cardiovascular: Normal rate, Regular rhythm. Heart Sounds: Normal. Neurologic: Alert, Oriented. Review / Management Results review: No qualifying data available . Documentation reviewed: Current records. Assessment and Plan [place] [employer] Anesthesiologists (ASA) physical status classification: Class III. Anesthetic Preoperative Plan Premedication: intravenous. Anesthetic technique: MAC. Postoperative pain management: Per surgeon. Informed consent: signed by patient. Notes: Cervical CA. Digitally Signed by OLE MONK MD on 10/22/2023 02:01 PM [facility]buljwcc65-02-1447 Evaluation + Plan noteExtracted from: Title:IR Pre-Procedure [...] Ready to change: Yes. Physical Exam Vitals: Udupajujdzt89.9 (10:16) Systolic Blood Judlxbct663 (10:16) Diastolic Blood Corokckn36 (10:16) Pulse76 (10:16) BcD2705 (10:16) Respiratory Rate16 (10:16) General: Alert, cooperative. Heart: Regular Lungs: Clear +LEFT neph tube The remainder of the physical exam is noncontributory. Labs Anticoagulation Labs No qualifying data available. No qualifying data available. Assessment/Treatment Plan LEFT nephrostomy tube exchange Post Procedure Discharge Plan Patient to be discharged home. Tadeo Leija PA-C Interventional Radiology Pager: [phone] IR dept: [phone] Available on Scodixt Future Appointments Appointment Date:10/31/2023 10:00:00 AM Scheduled Provider:BRITTNI LU Location:[facility] Appointment Type:SO OV Follow Up Appointment Date:11/18/2023 09:30:00 AM Scheduled Provider:OLE PACE MD Location:[facility] Appointment Type:PALL OV Follow Up Appointment Date:12/03/2023 11:00:00 AM Scheduled Provider: Location:IR Appointment Type:IR Nephrostomy Exchange Future Scheduled Tests Laboratory* Urinalysis 02/14/23 Radiology* IR Nephrostomy Exchange 12/03/23 * IR Neph Cath-Neph Ureter W/Guide Left 06/30/23 * IR Nephrostomy Tube Change Lt Guide 09/04/23 [facility] 12-20-2023 Note Interventional Radiology Focused Preprocedure History/Physical [...] Ready to change: Yes. Physical Exam Vitals: Sqrbawqyphb65.9 (10:16) Systolic Blood Cwzpfwbn069 (10:16) Diastolic Blood Ziaxaiec58 (10:16) Pulse76 (10:16) QuF8800 (10:16) Respiratory Rate16 (10:16) General: Alert, cooperative. Heart: Regular Lungs: Clear +LEFT neph tube The remainder of the physical exam is noncontributory. Labs Anticoagulation Labs No qualifying data available. No qualifying data available. Assessment/Treatment Plan LEFT nephrostomy tube exchange Post Procedure Discharge Plan Patient to be discharged home. Tadeo Leija PA-C Interventional Radiology Pager: [phone] IR dept: [phone] Available on Cortext Digitally Signed by TADEO LEIJA PA-C on 10/22/2023 01:31 PM [facility] Cincinnati[facility]elamtps52-33-8258 Note. MICRO - Microbiology PROCEDURE: Blood Culture [...] Locations *1: This test was performed at: [facility], [address] [place] [address], [address]- , [facility] ([place])07-24-2023 Hospital Discharge instructions Patient Education 07/24/2023 16:23:03 Radiology- Nephrostomy/Nephroureteral Tube Exchange 12/26/2022(CUSTOM) [place] Nephrostomy/Nephroureteral Tube Exchange Discharge Instructions Interventional Radiology [facility] Imaging Services [address] [facility] [address] The procedure that you had done today [...] the feeling of the need to urinate. Tuxr-hou-zuqpnrf pain medication should be used for pain [...] the gauze. Supplies may be obtained at: [address] [place] Any questions or concerns, please contact your physician or Interventional Radiology at [phone] from 8-4:30pm Friday-Friday. If you do not have a follow up appointment scheduled at the time of discharge, please call Interventional Radiology at the number listed above. 07/24/2023 16:19:42 1-SDS Discharge Instructions Template (08/2018)(YURIDIA) [facility] SAME DAY SURGERY DISCHARGE INSTRUCTIONS PLEASE [...] us better serve our patients. Form: 1522 (80570) R: 02/09 Follow Up Care 07/22/2023 14:03:34 With:MADELINE APARICIO MD, [facility] Address: [address] [place] [address] [facility] [place] [address]- [phone] When: Unknown Comments:Follow-up as scheduled [facility] 09-21-2023 Nurse Progress note Patient returned from [...] Tadeo Whitmore RN on 07/24/2023 04:51 PM [facility] Cincinnati[facility]zfeutvr04-56-2140 Summary of episode note Discharge Instructions Thank you for allowing [facility] to assist you with your healthcare needs. The following is importantdischarge information regarding your hospital visit. Your Care Team FLIP MARTIN MD What to do next Scheduled Follow-Up Appointments Appointment Type When With Where Contact InformationSO OV Follow Up 07/30/2023 11:30 AM [facility]AN[facility] [address] [place] [phone] PALL New Patient 07/31/2023 03:00 PM EDT OLE PACE MD Palliative Care IR Nephrostomy Tube Change Lt Guide 09/04/2023 01:00 PM EDT IR Follow Up Appointments Follow Up with MADELINE APARICIO MD, [facility] When Why: Follow-up as scheduled Where: [address] [facility] [place] [address]- [phone] The Following Activity and Diet Have Been [...] medication providers or retail pharmacies. Education Materials [place] Nephrostomy/Nephroureteral Tube Exchange Discharge Instructions Interventional Radiology [facility] Imaging Services [address] [place] [address] The procedure that you had done today [...] the feeling of the need to urinate. Uhsz-oaq-uybwqlt pain medication should be used for pain [...] the gauze. Supplies may be obtained at: [facility] [address] [facility] [address] [facility] Any questions or concerns, please contact your physician or Interventional Radiology at [phone] from 8-4:30pm Friday-Friday. If you do not [...] us better serve our patients. Form: 1522 (28559) R: 02/09 Additional Information VACCINATE! IT SAVES LIVES! Members of the community who have not yet received the COVID-19 vaccine and would like to receive it can visit one of [facility] vaccine clinics. There are many vaccine clinic locations within the [facility]. For locations and available times, please visit https://[email or web address].[place].gov/. It is important to note that some COVID mobile vaccine clinics are held outdoors and may be canceled in rainy or stormy conditions. To learn more about pediatric vaccinations (ages 5-11), we invite you to visit the [facility] webpage. https://www.[employer]s.org/pages/5762-Bwpxs-Jvalpowrebj-Xjhcmzqewj-Lyxfa-Dwo stions.htmlTo learn more about the COVID-19 vaccine, we invite you to visit the CDC website for a list of frequently asked questions.https://www.cdc.gov/coronavirus/2019-ncov/vaccines/faq.html [facility] Patient Portal Access Instructions: Stay connected with your healthcare team and access your personal medical information anytime with the [facility] Patient Portal. Please follow the directions below to create your [facility] account: 1.Access the email account you provided upon registration to the hospital/physician office.2.Look for an invitation email from [facility].3.Open the email and access the invitation link: AcceptInvitation to [facility].4.Fill in the required quintero to create your account. To access your account, visit [employer]/[email or web address]. Click the blue button labeled Access Patient Portal and then log in with the username and password that you created in the steps above. You will be able to view your test results, lab results, a summary of your visits, upcoming appointments and more. There is also a convenient messaging option where you can send secure messages to your [facility]. In addition, you will have the ability to download any documents or summaries to your computer and/or send the information securely to a physician. Remember that your healthcare information is confidential, so carefully consider who you will allowto register on the [facility] Patient Portal for access to your information. You can also access the [facility] Patient Portal on the [facility] joya. Simply click on Patient Portal and then log into your account. If you would like to receive a full copy of your medical records, please contact the [facility] Medical Records Department by calling [phone], Friday through Friday between 8 a.m. and [...] Call your local pharmacy or go to http://Solidarium.TXCOM/[email or web address] to find one close to you.3.Make use of household items: Use cat litter or old coffee grounds to dispose medications if other options arenot available. Mix your drugs with these household products, seal them in an airtight container andthrow it into the garbage. Call [facility]: [phone] to be sure your drugs can be [...] aware that I should contact my doctor. Patient/Physical Therapy Aide Signature: Date/Time: Relationship to Patient: Witness Name/Signature: Date/Time: [facility]zdkxmjz80-41-9818 Note IR Procedure Record Summary Primary Physician: MADELINE APARICIO MD Finalized Date/Time: 07/24/23 14:16:14 Pt. Name: LALY NAVASO.B./Sex: 1990 Female Med Rec #: [id number] Physician: Financial #: [id number] Pt. Type: S Room/Bed: [facility] Admit/Disch: 07/24/23 09:40:57 - Institution: Allergies identified in patient's electronic medical record at time of printing on 07/24/23 Entry 1 Entry 2 Substance Oranges penicillin Reaction Type Allergy Allergy Last Modified By: Shoshana Renteria RN, Kimberly V. RN 07/21/23 10:11:02 07/21/23 10:10:45 Case Attendance- IR Entry 1 Entry 2 Entry 3 Case Attendee MADELINE APARICIO MD, MATTHEW C Aller, Tracie N RN BRIM GREASER OPERATOR-CONCESSION STAND ATTENDANT Role Performed Primary Surgeon CONCESSION STAND ATTENDANT Auto Parker 1 Details Time In 07/24/23 12:59:00 07/24/23 [...] Entry 4 Entry 5 Case Attendee Bárbara Make Up Operator HelperMendel Henry AddShoppers Austen Piper Role Performed Scrub Technologist Circulating [...] mL Medication OMNIPAQUE 300 50ML 10/PK Y-530 [facility] 4638-9152-59 Radiology Flouroscopy Fluoroscopy Used? Yes Fluoro Dose [...] Time Out DENISE BUCIO Relevant images and BRIM GREASER OPERATOR-Kristyn ESPINOZA, results are properly Cristina Hitchcock RN, Bárbara, labeled and Make Up Operator Helper Leatha Boyce, appropriately Elaine Make Up Operator Helper Lida moon Confirm/obtain preop antibiotic order., Alcohol [...] Chest, Groin Side Left Right By Bárbara Make Up Operator Helper Leatha Granger Make Up Operator Helper Leatha Boyce Prep Agents Betadine Solution Chloraprep Hair Removal Method N/A Clipped Last Modified By: Elaine Make Up Operator HelperMendel Henry Make Up Operator Helper Lida Piper 07/24/23 Lida K 07/24/23 14:12:39 14:12:39 Patient [...] Radiology - Action Plan Outcomes Met? Yes Accounting Consultant Cristina Simons RN Completing Procedure Plan Last Modified By: Cristina Smions RN 07/24/23 12:48:58 Case Comments Finalized By: Sam Henry Document Signatures Signed By: Cristina Simons RN 07/24/23 13:58 Sam Henry 07/24/23 14:15 Sam Henry 07/24/23 14:16 [id number] Evaluation + Plan noteExtracted from: Title:IR Pre-Procedure [...] 06/26/23 and can be found in the [facility] ([facility]). Milagro Mcgarry PA-C Interventional Radiology IR Dept [id number] [facility] Future Appointments Appointment Date:07/30/2023 11:30:00 AM Scheduled Provider:FLIP MARTIN MD Location:[facility] Appointment Type:SO OV Follow Up Appointment Date:07/31/2023 03:00:00 PM Scheduled Provider:OLE PACE MD Location:[facility] Appointment Type:PALL New Patient Appointment Date:09/04/2023 01:00:00 PM Scheduled Provider: Location:IR Appointment Type:IR Nephrostomy Tube Change Lt Guide Future Scheduled Tests Laboratory* Pathology Education Supervisor Request 05/15/23 * Urinalysis 02/14/23 Radiology* IR [...] IR Nephrostomy Tube Change Lt Guide 06/21/24 [facility] 09-21-2023 Note* Cristina Simons RN: Cristina Fuentes RN: SIGN, AUTHOR Cristina Simons RN: AUTHOR, AUTHOR, PERFORM, Sam Antony: SIGN, AUTHOR Sam Henry: AUTHOR Event Display: IR Procedure Record Authored Date: IR Procedure Record Summary Primary Physician: MADELINE APARICIO MD Finalized Date/Time: 07/24/23 14:16:14 Pt. Name: LALY NAVAS Austen /Sex: 1990 Female Med Rec #: [id number] Physician: Financial #: [id number] Pt. Type: S Room/Bed: [facility] Admit/Disch: 07/24/23 09:40:57 - Institution: Allergies identified in patient's electronic medical record at time of printing on 07/24/23 Entry 1 Entry 2 Substance Oranges penicillin Reaction Type Allergy Allergy Last Modified By: Shoshana Renteria RN, Kimberly V. RN 07/21/23 10:11:02 07/21/23 10:10:45 Case Attendance- IR Entry 1 Entry 2 Entry 3 Case Attendee MADELINE APARICIO MD, MATTHEW C Aller, Tracie N RN BRIM GREASER OPERATOR-CONCESSION STAND ATTENDANT Role Performed Primary Surgeon CONCESSION STAND ATTENDANT Auto Parker 1 Details Time In 07/24/23 12:59:00 07/24/23 [...] mL Medication OMNIPAQUE 300 50ML 10/PK Y-530 [facility] [id number] Radiology Flouroscopy Fluoroscopy Used? Yes Fluoro Dose [...] Time Out DENISE BUCIO Relevant images and BRIM GREASER OPERATOR-Kristyn ESPINOZA, results are properly Cristina Hitchcock RN, Bárbara, labeled and Make Up Operator Helper Leatha Boyce, appropriately Elaine, Make Up Operator Helper Lida moon Confirm/obtain preop antibiotic order., Alcohol [...] Groin Side Left Right By Sam Granger BárbaraSam Austen L Prep Agents Betadine Solution Chloraprep Hair [...] Radiology - Action Plan Outcomes Met? Yes Accounting Consultant Cristina Simons RN Completing Procedure Plan Last Modified By: Cristina Simons RN 07/24/23 12:48:58 Case Comments <None> Finalized By: Sam Henry Document Signatures Signed By: Cristina Simons RN 07/24/23 13:58 Sam Henry 07/24/23 14:15 Sam Henry 07/24/23 14:16 [facility] 09-21-2023 History and physical note IR PREPROCEDURE [...] 06/26/23 and can be found in the [facility] ([facility]). Milagro Mcgarry PA-C Interventional Radiology IR Dept [id number] [facility] Digitally Signed by MILAGRO MCGARRY PA-C on 07/24/2023 12:20 PM Digitally Signed by MADELINE APARICIO MD on 07/24/2023 05:58 PM [facility] [id number] Anesthesiology Consult note Patient: LALY NAVAS Age: [...] Medical Left flank pain / SNOMED CT 140553116 / Confirmed Nausea and vomiting / SNOMED CT 34748501 / Confirmed Dehydration / SNOMED CT 99219686 / Confirmed Asthma / SNOMED CT 375033568 / Confirmed Obstructive uropathy / SNOMED CT 17973691 / Confirmed Acute kidney injury / SNOMED CT 56047734 / Confirmed Moderate protein-calorie malnutrition / SNOMED CT 031999058 / Confirmed Port-A-Cath in place / SNOMED CT 0108732126 / Confirmed History of chemotherapy / SNOMED CT 5211071879 / Confirmed History of radiation therapy / SNOMED CT 3368948813 / Confirmed Complicated UTI (urinary tract infection) / SNOMED CT 661673188 / Confirmed Anxiety / SNOMED CT 41223302 / Confirmed DVT prophylaxis / SNOMED CT 183573380 / Confirmed Decreased appetite / SNOMED CT 929705280 / Confirmed Cervical cancer / SNOMED CT 366524818 / Confirmed Nephrostomy status / SNOMED CT 200890667 / Confirmed Premature menopause / SNOMED CT 5698150072 / Confirmed Pyelonephritis / SNOMED CT 12652882 / Confirmed Bilateral flank pain / SNOMED CT 390459062 / Confirmed Cancer related pain / SNOMED CT 1265436317 / Confirmed, Active Problems (25) Acute kidney [...] ESBL (extended spectrum beta-lactamase) producing bacteria infection (5176201396): Onset on 02/23/2023 at 32 years. Resolved on 05/07/2023 at 32 years. ESBL (extended spectrum beta-lactamase) producing bacteria infection (8078928963): Onset on 08/09/2022 at 31 years. Resolved on 01/02/2023 at 32 years. Comments: 01/02/2023 SUMEET 10:02 JAMAL Holloway Removed ESBL disease alert from 08/2022 per infection control protocol on 01/02/23. Mass of cervix (336890941): Resolved. Chronic kidney disease, stage 3 (moderate) (2626511799): Resolved. Hydronephrosis of left kidney (72561408): Resolved. Cervicitis (669297375): Resolved. Encounter for antineoplastic chemotherapy (965268111): Resolved. Tinnitus (210713072): Resolved. History of COVID-19 (2847915245): Resolved. Family History: Cancer Sister COPD - Chronic obstructive pulmonary disease Mother Kidney stone Mother Asthma Mother Breast cancer Mother Hypertension Mother Heart disease Mother Substance abuse Father Alcohol abuse Father Stroke Grandparent Father Heart attack Mother Diabetes Grandparent Procedure history: Nephrostomy with tube drainage (28645504) in the month of 07/2023 at 32 Years. Comments: 06/13/2020 10:09 JAMAL Guaman left Nephrostomy with tube drainage (40722840) on 01/10/2021 at 30 Years. Cannulation of Portacath (513586529) in 2020 at 30 Years. Comments: 06/13/2020 10:09 GINNY Soliz RN Lizzy Germain right JJ stent (3233205986) on 11/15/2020 at 29 Years. Radiation (333998141) in the month of 06/2020 at 29 Years. Comments: 06/26/2020 6:12 GINNY Burton RN Mayi Jenkins via tandems and oviod X2 Cervical biopsy (85112656) in 2019 at 29 Years. Comments: 04/12/2020 18:25 Eri Conte RN pt states she had a cervical biopsy done on 04/07/2020 at [facility] for a cervical mass Tumor cells, benign (92853856) in 2001 at 11 Years. 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 done at [facility] in [place] Social History Social & Psychosocial Habits Alcohol [...] Resp Rate 18 br/min (JUL 24 10:08) SZY298 mmHg (JUL 24 10:08) DBP83 mmHg (JUL 24 10:08) Measurements from flowsheet : Measurements 07/24/2023 10:08 EDT Height 167.6 cm Height in inches 66 inch(es) Admission Weight 67.8 kg Weight Lbs 149.2 lb Weight Method Actual [place] Body Weight 59.26 kg Type of Scale [...] Weight Lbs 149.2 lb Weight Method Actual [place] Body Weight 59.26 kg Type of Scale [...] Devices Nephrostomy Skin Temperature Warm Skin Description [place], Dry Skin Integrity Intact Characteristics of Speech [...] 9:27 EDT Heaven GRAY 07/24/2023 9:27 EDT Heaven GRAY 07/23/2023 11:58 EDT Message PAC Team Auth Message 07/23/2023 0:00 EDT Precert Scanned NEPH CATH EXCHANGE AUTH . Assessment and Plan [place] [employer] Anesthesiologists (ASA) physical status classification: Class III. Anesthetic Preoperative Plan Anesthetic technique: General. Induction: intravenously. Maintenance airway: Oral endotracheal tube. Postoperative pain management: Per surgeon. Risks discussed: nausea, vomiting, headache, sore throat, dental injury, hypotension, allergic reaction, serious complications. Informed consent: signed by patient. Notes: smoker, asthma, cervical CA. Digitally Signed by MARIN COTE MD on 07/24/2023 12:05 PM [facility] CincinnatiFjvanzbo60-95-8603 Procedure note Brief IR Post Procedure Note - Outpatient Pre Procedure Dx: Cervical ca hx, left ureteral scarring requiring chronic catheter, poor compliance where prior PCNU was stuck in ureter, fibrin sheath of port Post Procedure Dx: Same Procedure: 1. Conversion of left PCNU to PCN 2. Port venogram 3. Port catheter fibrin sheath stripping Polisher Dial: Markus Hardening Machine Operator Helper: None Anesthesia: Local, MAC EBL: Minimal Complications:None [...] MD Vascular & Interventional Radiology [facility] ([facility]) [email or web address] [email or web address] Pager: [phone] [facility] Dept (26/05): [phone] [facility] [id number] [facility] Digitally Signed by MADELINE APARICIO MD on 07/24/2023 01:58 PM [facility] CincinnatiZrymnppp62-84-6577 Hospital Discharge instructions Patient Education 07/16/2023 13:40:49 [...] strategies to do this. General instructions Take bleu-rsi-quyurcn and prescription medicines only as told by [...] 07/12/2003 Document Revised: 10/02/2018 Document Reviewed: 04/08/2017 What [employer] Trend Patient Education 2020 [employer]. Follow Up Care 07/08/2023 20:13:58 With:OLE PACE MD Address: [address] [place] [address] [place] [address]- [phone] When:07/24/2023 15:00:00 With:FLIP MARTIN MD Address: [address] [place] [address] [place] [address]- [phone] When:07/30/2023 11:30:00 [facility] 09-13-2023 Palliative care Progress note Awaiting prior auth Digitally Signed by SANTINO SAWYER MD on 07/16/2023 06:16 AM [facility] CincinnatiGnbyvhhz89-16-5303 Note Date of Service 07/16/23 Subjective Patient [...] Tract Infection - 07/07/23 Patient presented to [facility] for UTI symptoms. - Urinalysis on 07/07 was remarkable for signs of UTI at [facility]. Patient was placed on BactrimDS twice daily x10 days for outpatient management after discussion with Dr. Hilliard. - 07/07/23 CT abdomen/pelvis obtained at that time showed Left-sided nephrostomy is present extendingto the bladder. There is an irregularly shaped hypodense focus in the upper pole of the kidney without enhancement. Mucosal thickening versus underfilling of the colon. - 07/08 Patient again presents to [facility] with N/V, pain and UTI symptoms [...] was supposed to see Dr. Andrea at [facility]. Referral was sent to this provider to be scheduled end of May/early June. Patient did not do this. - Discussion with Dr. Martin via telehealth visit, patient was encouraged again to follow-up with [facility] urology for possible nephrectomy in order to [...] MARIA GODOY DO on 07/16/2023 06:55 AM [facility] CincinnatiIunmwtnf49-20-5399 Note Discharge Instructions Thank you for allowing [facility] to assist you with your healthcare needs. [...] Surgery 07/24/2023 11:25 AM EDT Main OR [phone] IR Neph Cath-Neph Ureter W/Guide Left 07/24/2023 12:00 PM EDT IR PALL New Patient 07/24/2023 03:00 PM EDT OLE PACE MD [facility] SO OV Follow Up 07/30/2023 11:30 AM EDT FLIP MARTIN MD [facility] [address] [place] [phone] Follow Up Appointments Follow Up with FLIP MARTIN MD When 07/30/2023 11:30 AM EDT Where: [address] [place] [address] [place] [address]- [phone] The Following Activity and Diet Have Been [...] Cervical ca Duration: 9 Days Pickup at [facility]. Changed LORazepam (LORazepam 1 mg oral tablet) 1 tab(s) by mouth Every 8 hours Changed oxyCODONE (oxyCODONE 5 mg oral tablet ( IMMEDIATE release )) 3 tab(s) by mouth Every 4 hours as needed for as needed for pain Cancer related pain Cervical ca Duration: 7 Days Pickup at [facility]. Changed oxyCODONE (OxyContin 15 mg oral tablet, extended release) 1 tab(s) by mouth Two (2) times a day Cancer related pain Cervical ca Pickup at [facility]. Unchanged calcium-vitamin D (Calcium Plus Vitamin D3 [...] hours as needed for Nausea/Vomiting Pharmacy Information [facility] [address], [place] [phone] Please take this list to your next [...] strategies to do this. General instructions Take qwhx-hkr-xqevmsu and prescription medicines only as told by [...] 07/12/2003 Document Revised: 10/02/2018 Document Reviewed: 04/08/2017 What [employer] Trend Patient Education 2020 [employer] Additional Information VACCINATE! IT SAVES LIVES! Members of the community who have not yet received the COVID-19 vaccine and would like to receive it can visit one of [facility] vaccine clinics. There are many vaccine clinic locations within the [facility]. For locations and available times, please visit https://gettheshot.coronavirus.[place].gov/. It is important to note that some COVID mobile vaccine clinics are held outdoors and may be canceled in rainy or stormy conditions. To learn more about pediatric vaccinations (ages 5-11), we invite you to visit the [facility] webpage. https://www.[email or web address].org/pages/9607-Ypunj-Opoilpzasdo-Grthwjcneb-Hihgb-Fpi stions.htmlTo learn more about the COVID-19 vaccine, we invite you to visit the CDC website for a list of frequently asked questions.https://www.cdc.gov/coronavirus/2019-ncov/vaccines/faq.html [facility] Patient Portal Access Instructions: Stay connected with your healthcare team and access your personal medical information anytime with the [facility] Patient Portal. Please follow the directions below to create your [facility] account: 1.Access the email account you provided upon registration to the hospital/physician office.2.Look for an invitation email from [facility].3.Open the email and access the invitation link: AcceptInvitation to [facility].4.Fill in the required quintero to create your account. To access your account, visit [employer]abicar[employer]. Click the blue button labeled Access Patient [...] will allowto register on the [facility] Portal for access to your information. You can also access the [facility] Patient Portal on the [facility] joya. Simply click on Patient Portal and then log into your account. If you would like to receive a full copy of your medical records, please contact the [facility] Medical Records Department by calling [phone], Friday through Friday between 8 a.m. and [...] Call your local pharmacy or go to [email or web address] to find one close to you.3.Make use of household items: Use cat litter or old coffee grounds to dispose medications if other options arenot available. Mix your drugs with these household products, seal them in an airtight container andthrow it into the garbage. Call [facility]: [phone] to be sure your drugs can be [...] aware that I should contact my doctor. Patient/Physical Therapy Aide Signature: Date/Time: Relationship to Patient: Witness Name/Signature: Date/Time: [facility] CincinnatiDemeuuft39-44-4824 Note Date of Service 07/16/23 Subjective Patient [...] Tract Infection - 07/07/23 Patient presented to [facility] for UTI symptoms. - Urinalysis on 07/07 was remarkable for signs of UTI at [facility]. Patient was placed on BactrimDS twice daily x10 days for outpatient management after discussion with Dr. Hilliard. - 07/07/23 CT abdomen/pelvis obtained at that time showed Left-sided nephrostomy is present extendingto the bladder. There is an irregularly shaped hypodense focus in the upper pole of the kidney without enhancement. Mucosal thickening versus underfilling of the colon. - 07/08 Patient again presents to [facility] with N/V, pain and UTI symptoms [...] was supposed to see Dr. Andrea at [facility]. Referral was sent to this provider to be scheduled end of May/early June. Patient did not do this. - Discussion with Dr. Martin via telehealth visit, patient was encouraged again to follow-up with [facility] urology for possible nephrectomy in order to [...] MARIA GODOY DO on 07/16/2023 06:55 AM [facility] CincinnatiJenpodet19-16-7972 Palliative care Progress note Awaiting prior auth Digitally Signed by SANTINO SAWYER MD on 07/16/2023 06:16 AM [facility] CincinnatiXngmfaju14-19-7860 Palliative care Progress note Chart reviewed in detail. EKG remains pending to evaluate for possible QTc prolongation in anticipation of possibly starting methadone. Per documentation, patient resistant to starting methadone. Prescription written for oxycodone, OxyContin in anticipation of discharge tomorrow in case there is prior authorization needed. Digitally Signed by SANTINO SAWYER MD on 07/15/2023 12:19 PM [facility] CincinnatiTlswpovv89-63-3125 Palliative care Progress note Chart reviewed in detail. EKG remains pending to evaluate for possible QTc prolongation in anticipation of possibly starting methadone. Per documentation, patient resistant to starting methadone. Prescription written for oxycodone, OxyContin in anticipation of discharge tomorrow in case there is prior authorization needed. Digitally Signed by SANTINO SAWYER MD on 07/15/2023 12:19 PM [facility] CincinnatiCgbuakto97-15-9425 Note Date of Service 07/15/2023 Chief Complaint [...] Urinary Tract Infection -07/07/23 Patient presented to [facility] for UTI symptoms. - Urinalysis on 07/07 was remarkable for signs of UTI at [facility]. Patient was placed on BactrimDS twice daily x10 days for outpatient management after discussion with Dr. Hilliard. - 07/07/23 CT abdomen/pelvis obtained at that time showed Left-sided nephrostomy is present extendingto the bladder. There is an irregularly shaped hypodense focus in the upper pole of the kidney without enhancement. Mucosal thickening versus underfilling of the colon. -07/08 Patient again presents to [facility] with N/V, pain and UTI symptoms [...] was supposed to see Dr. Andrea at [facility]. Referral was sent to this provider to be scheduled end of May/early June. Patient did not dothis. -Discussion with Dr. Martin via telehealth visit, patient was encouraged again to follow-up with [facility] urology for possible nephrectomy in order to [...] ANGELA ALVARADO DO on 07/15/2023 06:33 AM [facility] CincinnatiNbjlvcrd55-32-8025 Nurse Progress note Nephrostomy dressing changed. Site [...] Elicia Rojo RN on 07/15/2023 10:28 AM [facility] CincinnatiWfhtdvhi41-40-2805 Note Date of Service 07/15/2023 Chief Complaint [...] Urinary Tract Infection -07/07/23 Patient presented to [facility] for UTI symptoms. - Urinalysis on 07/07 was remarkable for signs of UTI at [facility]. Patient was placed on BactrimDS twice daily x10 days for outpatient management after discussion with Dr. Hilliard. - 07/07/23 CT abdomen/pelvis obtained at that time showed Left-sided nephrostomy is present extendingto the bladder. There is an irregularly shaped hypodense focus in the upper pole of the kidney without enhancement. Mucosal thickening versus underfilling of the colon. -07/08 Patient again presents to [facility] with N/V, pain and UTI symptoms [...] was supposed to see Dr. Andrea at [facility]. Referral was sent to this provider to be scheduled end of May/early June. Patient did not dothis. -Discussion with Dr. Martin via telehealth visit, patient was encouraged again to follow-up with [facility] urology for possible nephrectomy in order to [...] ANGELA ALVARADO DO on 07/15/2023 06:33 AM [facility] CincinnatiPzdmtomh92-93-8841 Palliative care Progress note Date of Service [...] SANTINO SAWYER MD on 07/14/2023 03:31 PM [facility] CincinnatiIrdbncwx40-01-4153 Note Date of Service 07/14/2023 Chief Complaint [...] Urinary Tract Infection -07/07/23 Patient presented to [facility] for UTI symptoms. - Urinalysis on 07/07 was remarkable for signs of UTI at [facility]. Patient was placed on BactrimDS twice daily x10 days for outpatient management after discussion with Dr. Hilliard. - 07/07/23 CT abdomen/pelvis obtained at that time showed Left-sided nephrostomy is present extendingto the bladder. There is an irregularly shaped hypodense focus in the upper pole of the kidney without enhancement. Mucosal thickening versus underfilling of the colon. -07/08 Patient again presents to [facility] with N/V, pain and UTI symptoms [...] same - consult to psych, onc social work manager, nurse navigator - plan for patient to follow up with pain management outpatient. Left Nephrostomy Tube -Patient was scheduled with interventional radiology for nephroureteral tube change on 06/24/2023. Patient did not show for appointment. -Patient does not currently follow with a urologist. She was supposed to see Dr. Andrea at [facility]. Referral was sent to this provider to be scheduled end of May/early June. Patient did not dothis. -Discussion with Dr. Martin via telehealth visit, patient was encouraged again to follow-up with [facility] urology for possible nephrectomy in order to [...] ANGELA ALVARADO DO on 07/14/2023 06:45 AM [facility] CincinnatiXzcjgjvv42-11-7007 Mental health Consult note Date of Service [...] Patient reports that she lives alone in [place], and due to her chronic health [...] 4 different options for psychotherapy follow-up in [place], where she lives, including family life counseling, the counseling center, [facility], and [facility]. She expresses understanding and agrees to consider. [...] mg= 1 tab(s), Oral, qDay Sterile Water LONGTERM, 2.2 mL, IV Push, prep pharm Zofran, [...] CAIO KNOX MD on 07/14/2023 08:48 AM [facility] [id number] Note Date of Service 07/14/2023 Chief Complaint [...] Urinary Tract Infection -07/07/23 Patient presented to [facility] for UTI symptoms. - Urinalysis on 07/07 was remarkable for signs of UTI at [facility]. Patient was placed on BactrimDS twice daily x10 days for outpatient management after discussion with Dr. Hilliard. - 07/07/23 CT abdomen/pelvis obtained at that time showed Left-sided nephrostomy is present extendingto the bladder. There is an irregularly shaped hypodense focus in the upper pole of the kidney without enhancement. Mucosal thickening versus underfilling of the colon. -07/08 Patient again presents to [facility] with N/V, pain and UTI symptoms [...] same - consult to psych, onc social work manager, nurse navigator - plan for patient to follow up with pain management outpatient. Left Nephrostomy Tube -Patient was scheduled with interventional radiology for nephroureteral tube change on 06/24/2023. Patient did not show for appointment. -Patient does not currently follow with a urologist. She was supposed to see Dr. Andrea at [facility]. Referral was sent to this provider to be scheduled end of May/early June. Patient did not dothis. -Discussion with Dr. Martin via telehealth visit, patient was encouraged again to follow-up with [facility] urology for possible nephrectomy in order to [...] ANGELA ALVARADO DO on 07/14/2023 06:45 AM [id number] Palliative care Consult note Date of Service 07/11/2023 Reason for Consult Cancer related pain management Participants in Discussion Lizy, the patient History of Present Illness Lizy Navas is a 32-year-old, Macanese-speaking, female with past medical history of advanced [...] She has never completed healthcare power of corporate attorney. We discussed legal surrogate decision making hierarchy. She would not want her family making decisions regarding her medical care. Provided information regarding healthcare power of corporate attorney. She would like totalk to her friend about this. We offered to complete healthcare power of corporate attorney here in hospitalbut if she is discharged prior to completing this she knows she can complete healthcare power of corporate attorney paperwork outpatient as well. Problem List/Past [...] 2 mL, IV Push, q6h Sterile Water LONGTERM, 2.2 mL, IV Push, prep pharm Toradol, [...] SANTINO SAWYER MD on 07/11/2023 02:36 PM [id number] Nurse Progress note patient states that she fell, she thinks she passed out. Neuro assessment negative, no evidence of injury. charge nurse notified Digitally Signed by JAMAL Ferrer on 07/10/2023 04:10 PM [id number] Note. MICRO - Microbiology PROCEDURE: Urine Culture [...] Locations *1: This test was performed at: [address], [facility] , [facility] ([place])07-10-2023 Note. MICRO - Microbiology PROCEDURE: Urine Culture [...] Locations *1: This test was performed at: [facility], [address] [place] [address], [id number] , [facility] ([place])07-10-2023 NoteORIGINAL PROCEDURE: IR NEPHROSTOMY TUBE CHANGE MODERATE CONSCIOUS SEDATION 07/09/2023 HISTORY: ORDERING SYSTEM PROVIDED HISTORY: Reason for Exam: Overdue for nephrostomy tube exchange, last changed in April Routine nephroureteral stent check unchanged TECHNIQUE: Parada portions of the exam: 1. Retrieval of foreign body. 2. Antegrade nephrostogram. 3. Angioplasty of the ureter. 4. Replacement of nephroureteral stent with up sizing to 10 Mongolian CONTRAST: 80 cc SEDATION: Moderate sedation was ordered and supervised by the attending with physician [id number] monitoring. Medications were provided and recorded by Radiology nurses. FLUOROSCOPY DOSE AND TYPE: Radiation Exposure Index: 26.1 minutes of fluoroscopic time was 344 AKA, DESCRIPTION OF PROCEDURE: Informed consent was obtained after a detailed explanation of the procedure including risks, benefits, and alternatives. Eldred protocol was observed. Sterile gowns, masks, hats [...] made to attempt exchange of an 8 Mongolian nephroureteral stent. Under fluoroscopic guidance, a all [...] significant amount of backwards pressure, the 8 Mongolian nephroureteral stent is unable to be pulled. [...] the bladder. At this point, a 7 Mongolian 45 cm sheath is now advanced into the bladder from the nephrostomy tube access through the ureter at which point, a 15 mm 6 Mongolian snare is advanced and used to snare the broken piece of 014 wire with retrieval of foreign body performed. Next, a new nephroureteral stent is advanced. Given that the 8 Mongolian had occluded previously, decision was made to place a 10 Mongolian nephroureteral stent. Over the stiff glide, a [...] Sign Date: 07/10/2023 1:33:51 PM Ordering Provider: [facility] ([place])07-10-2023 Note ORIGINAL PROCEDURE: VR PORTOGRAPHY MODERATE CONSCIOUS SEDATION 07/09/2023 HISTORY: ORDERING SYSTEM PROVIDED HISTORY: Reason for Exam: port not aspirating TECHNIQUE: The previously accessed MediPort (Lujan needle) was injected with contrast and fluoroscopic images are obtained. CONTRAST: 20 cc of Visipaque SEDATION: Moderate sedation was ordered and supervised by the attending with physician hqrl-jf-spot monitoring. Medications were provided and recorded by Radiology nurses. FLUOROSCOPY DOSE AND TYPE: Radiation Exposure Index: 12 AK, total fluoro time was 22 seconds DESCRIPTION OF PROCEDURE: Informed consent was obtained after a detailed explanation of the procedure including risks, benefits, and alternatives. Eldred protocol was observed. Sterile gowns, masks, hats [...] Sign Date: 07/10/2023 10:42:17 AM Ordering Provider: [facility] ([place])07-10-2023 Note System generated consult for an established nephrostomy tube and was exchanged yesterday. Securement DSG: gauze & transparent DSG is dry and intact. Recommend to change as needed at least every 7days. Digitally Signed by Rhea Pruett RN, Skin Team on 07/10/2023 09:37 AM [id number] Note IR Procedure Record Summary Primary Physician: JOHANNA JEAN BAPTISTE MD Finalized Date/Time: 07/10/23 09:11:10 Pt. Name: LALY NAVAS./Sex: 1990 Female Med Rec #: [id number] Physician: FLIP MARTIN MD Financial #: [id number] Pt. Type: I Room/Bed: [facility]/A Admit/Disch: 07/08/23 20:11:38 - Institution: Allergies [...] Boyce Role Performed Primary Surgeon Procedure Nurse Auto Parker 1 Details Time In 07/09/23 11:45:00 07/09/23 [...] Perc W/Guide S Last Modified By: Elaine Make Up Operator Helper Elaine, Make Up Operator Helper Elaine, Make Up Operator Helper Lida K 07/09/23 Lida Veronique 07/09/23 Lida K 07/09/23 14:10:01 14:10:01 14:10:01 Entry 4 Entry 5 Entry 6 Case Attendee Padmini Fairchild Make Up Operator Helper Marisa Griffith RN Tech Role Performed Scrub Technologist Circulating [...] Perc W/Guide S Last Modified By: Elaine Make Up Operator Helper Elaine Make Up Operator Helper Elaine Make Up Operator Helper Lida Piper 07/09/23 Lida K 07/09/23 Lida K 07/09/23 14:10:01 14:10:01 14:10:01 Entry 7 Entry 8 Entry 9 Case Attendee Karolina Prater, Make Up Operator HelperCristina Mckeon RN Role Performed Scrub Technologist Circulating [...] Perc W/Guide S Last Modified By: Elaine Make Up Operator HelperMendel Henry Make Up Operator Helper Elaine, Make Up Operator Helper Lida Piper 07/09/23 Lida K 07/09/23 Lida [...] mL Medication OMNIPAQUE 300 50ML 10/PK Y-530 [facility] [id number] Radiology Flouroscopy Fluoroscopy Used? Yes Fluoro Dose [...] Hannah RN Hill, Hannah RN 07/09/23 12:25:19 09/06/23 12:25:19 07/09/23 12:25:19 Entry 4 Entry 5 [...] Back from: Last Modified By: Sam Henry, Make Up Operator Helper Elaine, Make Up Operator Helper Lida K 07/09/23 Lida K 07/09/23 Lida [...] MD Back from: Last Modified By: Elaine Make Up Operator Helper Elaine, Make Up Operator Helper Hucamilo, Make Up Operator Helper Lida K 07/09/23 Lida K 07/09/23 Lida [...] Back from: Last Modified By: Sam Henry Make Up Operator Helper Lida K 07/09/23 Lida K 07/09/23 13:21:18 [...] JEAN BAPTISTE MD, Present for Time Out Aller, Cristina Hitchcock RN, JAMAL Cuellar Fierstos, Megan R Make Up Operator HelperAngela Make Up Operator Helper Grace Instrument Sterility Procedure IR Nephrostomy Tube [...] Radiology - Action Plan Outcomes Met? Yes Accounting Consultant Cristina Simons RN Completing Procedure Plan Last Modified By: Cristina Simons RN 07/09/23 12:00:09 Case Comments Added [place] CAtheter and 2nd stiff glidewire used from bag and tag product wrappers so patient couldbe charged appropriately. [facility] RT-R(CV) Audio Production Manager Finalized By: Ana Tipton Document Signatures Signed By: Sam Henry 07/09/23 14:14 Ana Tipton 07/10/23 09:11 [id number] History and physical note Date of Service [...] problem. She was most recently admitted to [facility] on 04/27 to05/07/23. She was subsequently discharged on daptomycin and ciprofloxacin to continue until 05/16. She was also seen at [facility] on 07/07. At that time, she had [...] outpatient management per . She presented to [facility] again 07/08/23 with complaints of dysuria, flank pain, vomiting with suspected UTI/kidney infection per patient. A urinalysis and urine culture were obtained there, however records are not with the patient upon evaluation. She was transferred from [facility] emergency department to [place] emergency department with plan for direct [facility]. She is currently awaiting bed placement at [...] breathing, constipation, new vaginal or vulvar lesions. 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 Amenorrheic since initiation of Chemoradiation. Denies mammogram ever. Colonoscopy in 2019. Denies history of STDs. Not sexually active. Family History Mother with breast cancer Sister with cervical cancer Grandmother with cervical cancer Aunts with cervical cancer Cousins with cervical cancer ONCOLOGY HISTORY: - 04/04/2020: CT scan abdomen and pelvis. [facility]. Thickened cervical wall with involvementof the [...] underwent for intracavitary brachii therapy applications with gorp-etez-zcuw iridium 192afterloading device utilizing a tandem and [...] Start Date End Date Elapsed Days IMRT DEPUTY SHERIFF CUSTODY Pelvis 6X 180 4,500 04/26/2020 06/02/2020 37 3D PM Bst 18X 180 540 06/05/2020 06/07/2020 2 GENETIC TESTING: - Patient had genetic testing sent through [facility]. No reportable somatic or germline pathogenic or actionable mutations were found. Tumor mutational burden was 39th percentile. Microsatellite instability status stable. Somatic variants of unknown significance were found in PRKDC, TRAF3, AGUTSIN, ERBB4, and CXCR4. Variants of unknown significance [...] ciprofloxacin until 05/16 -07/07/23 Patient presented to [facility] for UTI symptoms. - Urinalysis on 07/07 was remarkable for signs of UTI at [facility]. Patient was placed on BactrimDS twice daily x10 days for outpatient management after discussion with Dr. Hilliard. - 07/07/23 CT abdomen/pelvis obtained at that time showed Left-sided nephrostomy is present extendingto the bladder. There is an irregularly shaped hypodense focus in the upper pole of the kidney without enhancement. Mucosal thickening versus underfilling of the colon. -07/08 Patient again presents to [facility] with transfer to [facility] for direct admission. -Patient notes dysuria, flank [...] was supposed to see Dr. Andrea at [facility]. Referral was sent to this provider to be scheduled end of May/early June. Patient did not dothis. -Discussion with Dr. Martin via telehealth visit, patient was encouraged again to follow-up with [facility] urology for possible nephrectomy in order to [...] ANGELA ALVARADO DO on 07/09/2023 04:30 AM [id number] Note ORIGINAL PROCEDURE: IR NEPHROSTOMY TUBE CHANGE MODERATE CONSCIOUS SEDATION 07/09/2023 HISTORY: ORDERING SYSTEM PROVIDED HISTORY: Reason for Exam: Overdue for nephrostomy tube exchange, last changed in April Routine nephroureteral stent check unchanged TECHNIQUE: Parada portions of the exam: 1. Retrieval of foreign body. 2. Antegrade nephrostogram. 3. Angioplasty of the ureter. 4. Replacement of nephroureteral stent with up sizing to 10 Mongolian CONTRAST: 80 cc SEDATION: Moderate sedation was ordered and supervised by the attending with physician [id number] monitoring. Medications were provided and recorded by Radiology nurses. FLUOROSCOPY DOSE AND TYPE: Radiation Exposure Index: 26.1 minutes of fluoroscopic time was 344 AKA, DESCRIPTION OF PROCEDURE: Informed consent was obtained after a detailed explanation of the procedure including risks, benefits, and alternatives. Eldred protocol was observed. Sterile gowns, masks, hats [...] made to attempt exchange of an 8 Mongolian nephroureteral stent. Under fluoroscopic guidance, a all [...] significant amount of backwards pressure, the 8 Mongolian nephroureteral stent is unable to be pulled. [...] the bladder. At this point, a 7 Mongolian 45 cm sheath is now advanced into the bladder from the nephrostomy tube access through the ureter at which point, a 15 mm 6 Mongolian snare is advanced and used to snare the broken piece of 014 wire with retrieval of foreign body performed. Next, a new nephroureteral stent is advanced. Given that the 8 Mongolian had occluded previously, decision was made to place a 10 Mongolian nephroureteral stent. Over the stiff glide, a [...] Sign Date: 07/10/2023 1:33:51 PM Ordering Provider: [facility]09-06-2023 Note ORIGINAL PROCEDURE: VR PORTOGRAPHY MODERATE CONSCIOUS SEDATION 07/09/2023 HISTORY: ORDERING SYSTEM PROVIDED HISTORY: Reason for Exam: port not aspirating TECHNIQUE: The previously accessed MediPort (Lujan needle) was injected with contrast and fluoroscopic images are obtained. CONTRAST: 20 cc of Visipaque SEDATION: Moderate sedation was ordered and supervised by the attending with physician [id number] monitoring. Medications were provided and recorded by Radiology nurses. FLUOROSCOPY DOSE AND TYPE: Radiation Exposure Index: 12 AK, total fluoro time was 22 seconds DESCRIPTION OF PROCEDURE: Informed consent was obtained after a detailed explanation of the procedure including risks, benefits, and alternatives. Eldred protocol was observed. Sterile gowns, masks, hats [...] Sign Date: 07/10/2023 10:42:17 AM Ordering Provider: [facility]09-06-2023 Evaluation + Plan note Extracted from: Title:Education Supervisor/Onc History and Physical Author:ANGELA ALVARADO DO Date:07/09/23 [...] ciprofloxacin until 05/16 -07/07/23 Patient presented to [facility] for UTI symptoms. - Urinalysis on 07/07 was remarkable for signs of UTI at [facility]. Patient was placed on Bactrim DS [...] the colon. -07/08 Patient again presents to [facility] with transfer to [facility] for direct admission. -Patient notes dysuria, flank [...] was supposed to see Dr. Andrea at [facility]. Referral was sent to this provider to be scheduled end of May/early June. Patient did not do this. -Discussion with Dr. Martin via telehealth visit, patient was encouraged again to follow-up with [facility] urology for possible nephrectomy in order to [...] Discussed with Dr. Martin. Addendum by TIMO MENHCACA DO on July 09, 2023 07:00:34 EDT [...] Date:07/30/2023 11:30:00 AM Scheduled Provider:FLIP MARTIN MD Location:DEPUTY SHERIFF CUSTODY ONC Appointment Type:SO OV Follow Up Future Scheduled Tests Laboratory* Pathology Education Supervisor Request 05/15/23 * Urinalysis 02/14/23 Radiology* IR [...] BD Bone Density DEXA Axial Skeleton 05/15/23 [facility] 09-06-2023 Procedure note INTERVENTIONAL RADIOLOGY POST PROCEDURE NOTE Pre-Procedure Diagnosis: Routine nephroureteral stent check and change Post Procedure Diagnosis: Same. Polisher Dial: Dr. Johanna Jean Baptiste MD Procedure: 1. Retrieval of foreign body. 2. Antegrade nephrostogram. 3. Angioplasty of the left ureter. 4. Nephrostomy tube check and change with upsizing Anesthesia: Conscious sedation Findings: The 8 Mongolian nephroureteral stent had occluded distally with a Glidewire unable to penetrate into the bladder. Mukund wire placed with balloon angioplasty of the distal ureter performed to a4 mm balloon. Successful 8 Mongolian nephroureteral stent check and change into 10 Mongolian nephroureteral stent placement. 014 wire had broken [...] JEAN BAPTISTE MD on 07/09/2023 01:56 PM [id number] History and physical note Date of Service [...] problem. She was most recently admitted to [facility] on 04/27 to05/07/23. She was subsequently discharged on daptomycin and ciprofloxacin to continue until 05/16. She was also seen at [facility] on 07/07. At that time, she had [...] outpatient management per . She presented to [facility] again 07/08/23 with complaints of dysuria, flank pain, vomiting with suspected UTI/kidney infection per patient. A urinalysis and urine culture were obtained there, however records are not with the patient upon evaluation. She was transferred from [facility] emergency department to [place] emergency department with plan for direct admission to [facility]. She is currently awaiting bed placement at [...] breathing, constipation, new vaginal or vulvar lesions. 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 Amenorrheic since initiation of Chemoradiation. Denies mammogram ever. Colonoscopy in 2019. Denies history of STDs. Not sexually active. Family History Mother with breast cancer Sister with cervical cancer Grandmother with cervical cancer Aunts with cervical cancer Cousins with cervical cancer ONCOLOGY HISTORY: - 04/04/2020: CT scan abdomen and pelvis. [facility]. Thickened cervical wall with involvementof the [...] underwent for intracavitary brachii therapy applications with jinw-reol-cbal iridium 192afterloading device utilizing a tandem and [...] Start Date End Date Elapsed Days IMRT DEPUTY SHERIFF CUSTODY Pelvis 6X 180 4,500 04/26/2020 06/02/2020 37 3D PM Bst 18X 180 / 540 06/05/2020 06/07/2020 2 GENETIC TESTING: - Patient had genetic testing sent through [facility]. No reportable somatic or germline [...] ciprofloxacin until 05/16 -07/07/23 Patient presented to [facility] for UTI symptoms. - Urinalysis on 07/07 was remarkable for signs of UTI at [facility]. Patient was placed on BactrimDS twice daily x10 days for outpatient management after discussion with Dr. Hilliard. - 07/07/23 CT abdomen/pelvis obtained at that time showed Left-sided nephrostomy is present extendingto the bladder. There is an irregularly shaped hypodense focus in the upper pole of the kidney without enhancement. Mucosal thickening versus underfilling of the colon. -07/08 Patient again presents to [facility] with transfer to [facility] for direct admission. -Patient notes dysuria, flank [...] was supposed to see Dr. Andrea at [facility]. Referral was sent to this provider to be scheduled end of May/early June. Patient did not dothis. -Discussion with Dr. Martin via telehealth visit, patient was encouraged again to follow-up with [facility] urology for possible nephrectomy in order to [...] ANGELA ALVARADO DO on 07/09/2023 04:30 AM [id number] History and physical note Date of Service [...] problem. She was most recently admitted to [facility] on 04/27 to05/07/23. She was subsequently discharged on daptomycin and ciprofloxacin to continue until 05/16. She was also seen at [facility] on 07/07. At that time, she had [...] outpatient management per . She presented to [facility] again 07/08/23 with complaints of dysuria, flank pain, vomiting with suspected UTI/kidney infection per patient. A urinalysis and urine culture were obtained there, however records are not with the patient upon evaluation. She was transferred from [facility] emergency department to [place] emergency department with plan for direct admission to [facility]. She is currently awaiting bed placement at [...] breathing, constipation, new vaginal or vulvar lesions. 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 Amenorrheic since initiation of Chemoradiation. Denies mammogram ever. Colonoscopy in 2019. Denies history of STDs. Not sexually active. Family History Mother with breast cancer Sister with cervical cancer Grandmother with cervical cancer Aunts with cervical cancer Cousins with cervical cancer ONCOLOGY HISTORY: - 04/04/2020: CT scan abdomen and pelvis. [facility]. Thickened cervical wall with involvementof the [...] underwent for intracavitary brachii therapy applications with ggqq-rzqt-nrpk iridium 192afterloading device utilizing a tandem and [...] Start Date End Date Elapsed Days IMRT DEPUTY SHERIFF CUSTODY Pelvis 6X 180 4,500 04/26/2020 06/02/2020 37 3D PM Bst 18X 180 540 06/05/2020 06/07/2020 2 GENETIC TESTING: - [facility] No reportable somatic or [...] ciprofloxacin until 05/16 -07/07/23 Patient presented to [facility] for UTI symptoms. - Urinalysis on 07/07 was remarkable for signs of UTI at [facility]. Patient was placed on BactrimDS twice daily x10 days for outpatient management after discussion with Dr. Hilliard. - 07/07/23 CT abdomen/pelvis obtained at that time showed Left-sided nephrostomy is present extendingto the bladder. There is an irregularly shaped hypodense focus in the upper pole of the kidney without enhancement. Mucosal thickening versus underfilling of the colon. -07/08 Patient again presents to [facility] with transfer to [facility] for direct admission. -Patient notes dysuria, flank [...] was supposed to see Dr. Andrea at [facility]. Referral was sent to this provider to be scheduled end of Jackie/early June. Patient did not dothis. -Discussion with Dr. Martin via telehealth visit, patient was encouraged again to follow-up with [facility] urology for possible nephrectomy in order to [...] Code Status Code Status - Ordered -- 09/05/23 22:24:00 EDT, Full Code, Constant Order Digitally Signed by ANGELA ALVARADO DO on 07/09/2023 04:30 AM [facility] [id number] History and physical note Date of Service [...] problem. She was most recently admitted to [facility] on 04/27 to05/07/23. She was subsequently discharged on daptomycin and ciprofloxacin to continue until 05/16. She was also seen at [facility] on 07/07. At that time, she had [...] outpatient management per . She presented to [facility] again 07/08/23 with complaints of dysuria, flank pain, vomiting with suspected UTI/kidney infection per patient. A urinalysis and urine culture were obtained there, however records are not with the patient upon evaluation. She was transferred from [facility] emergency department to [place] emergency department with plan for direct admission to [facility]. She is currently awaiting bed placement at [...] breathing, constipation, new vaginal or vulvar lesions. 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 Amenorrheic since initiation of Chemoradiation. Denies mammogram ever. Colonoscopy in 2020. Denies history of STDs. Not sexually active. Family History Mother with breast cancer Sister with cervical cancer Grandmother with cervical cancer Aunts with cervical cancer Cousins with cervical cancer ONCOLOGY HISTORY: - 04/04/2020: CT scan abdomen and pelvis. [facility]. Thickened cervical wall with involvementof the [...] underwent for intracavitary brachii therapy applications with nhle-cawl-hfym iridium 192afterloading device utilizing a tandem and [...] Start Date End Date Elapsed Days IMRT DEPUTY SHERIFF CUSTODY Pelvis 6X 180 4,500 04/26/2020 06/02/2020 37 3D PM Bst 18X 180 540 06/05/2020 06/07/2020 2 GENETIC TESTING: - Patient had genetic testing sent through [facility]. No reportable somatic or germline pathogenic or [...] ciprofloxacin until 05/16 -07/07/23 Patient presented to [facility] for UTI symptoms. - Urinalysis on 07/07 was remarkable for signs of UTI at [facility]. Patient was placed on BactrimDS twice daily x10 days for outpatient management after discussion with Dr. Hilliard. - 07/07/23 CT abdomen/pelvis obtained at that time showed Left-sided nephrostomy is present extendingto the bladder. There is an irregularly shaped hypodense focus in the upper pole of the kidney without enhancement. Mucosal thickening versus underfilling of the colon. -07/08 Patient again presents to [facility] with transfer to [facility] for direct admission. -Patient notes dysuria, flank [...] was supposed to see Dr. Andrea at [facility]. Referral was sent to this provider to be scheduled end of May/early June. Patient did not dothis. -Discussion with Dr. Martin via telehealth visit, patient was encouraged again to follow-up with [facility] urology for possible nephrectomy in order to [...] ANGELA ALVARADO DO on 07/09/2023 04:30 AM [id number] History and physical note Date of Service [...] problem. She was most recently admitted to [facility] on 04/27 to05/07/23. She was subsequently discharged on daptomycin and ciprofloxacin to continue until 05/16. She was also seen at [facility] on 07/07. At that time, she had [...] outpatient management per . She presented to [facility] again 07/08/23 with complaints of dysuria, flank pain, vomiting with suspected UTI/kidney infection per patient. A urinalysis and urine culture were obtained there, however records are not with the patient upon evaluation. She was transferred from [facility] emergency department to [facility] emergency department with plan for direct admission to [facility]. She is currently awaiting bed placement at [...] breathing, constipation, new vaginal or vulvar lesions. 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 Amenorrheic since initiation of Chemoradiation. Denies mammogram ever. Colonoscopy in 2019. Denies history of STDs. Not sexually active. Family History Mother with breast cancer Sister with cervical cancer Grandmother with cervical cancer Aunts with cervical cancer Cousins with cervical cancer ONCOLOGY HISTORY: - 04/04/2020: CT scan abdomen and pelvis. [facility]. Thickened cervical wall with involvementof the [...] underwent for intracavitary brachii therapy applications with zjtq-vces-wlyy iridium 192afterloading device utilizing a tandem and [...] Start Date End Date Elapsed Days IMRT DEPUTY SHERIFF CUSTODY Pelvis 6X 180 4,500 04/26/2020 06/02/2020 37 3D PM Bst 18X 180 540 06/05/2020 06/07/2020 2 GENETIC TESTING: - Patient had genetic testing sent through [facility]. No reportable somatic or germline [...] ciprofloxacin until 05/16 -07/07/23 Patient presented to [facility] for UTI symptoms. - Urinalysis on 07/07 was remarkable for signs of UTI at [facility]. Patient was placed on BactrimDS twice daily x10 days for outpatient management after discussion with Dr. Hilliard. - 07/07/23 CT abdomen/pelvis obtained at that time showed Left-sided nephrostomy is present extendingto the bladder. There is an irregularly shaped hypodense focus in the upper pole of the kidney without enhancement. Mucosal thickening versus underfilling of the colon. -07/08 Patient again presents to [facility] with transfer to [facility] for direct admission. -Patient notes dysuria, flank [...] was supposed to see Dr. Andrea at [facility]. Referral was sent to this provider to be scheduled end of May/early June. Patient did not dothis. -Discussion with Dr. Martin via telehealth visit, patient was encouraged again to follow-up with [facility] urology for possible nephrectomy in order to [...] ANGELA ALVARADO DO on 07/09/2023 04:30 AM [facility]bnlbcii00-52-1906 Hospital Discharge instructions Patient Education 05/07/2023 16:32:38 [...] Treatment for this condition includes: Antibiotic medicine. Wuya-vsj-eodpdmp medicines to treat discomfort. Drinking enough water [...] Follow these instructions at home: Medicines Take hmmw-wne-tiogbxx and prescription medicines only as told by [...] 07/30/2006 Document Revised: 10/07/2019 Document Reviewed: 04/29/2019 What the Trend Patient Education 2020 [employer]. Follow Up Care 04/27/2023 16:04:23 With:[facility] [phone] Address:Unknown When:05/13/2023 14:00:00 Comments:This is the initial appointment for your chest port needle/dressing change if you are unable to schedule yourself for Friday with [facility] when you call on Friday. Please call to cancel this appointment if you are able to get an appointment with [facility]. With:[facility] (labwork and port needle/dressing changes) [phone] Address: When: Unknown Comments:The surgery scheduling coordinator who would schedule you for this dressing change is out of the office this week. Nursing supervisor mixing was unable to schedule you as well. You will need to call them to schedule your appointments after discharge for future weekly dressing changes every Friday. Labwork does not have to be scheduled ahead of time (allow walk-ins). With:FLIP MATRIN MD Address: [address] [place] [address] [place] [address] [phone] When:05/15/2023 15:20:00 [facility] 07-05-2023 Note Discharge Instructions Thank you for allowing [facility] to assist you with your healthcare needs. [...] 05/15/2023 03:20 PM EDT FLIP MARTIN MD [facility] [address] [place] [phone] IR Neph Cath-Neph Ureter W/Guide Left 06/24/2023 11:00 AM EDT IR Follow Up Appointments Follow Up with FLIP MARTIN MD When 05/15/2023 03:20 PM EDT Where: [address] [place] [address] [place] [address] [phone] Follow Up with [facility] [phone] When 05/13/2023 02:00 PM EDT Why: This is the initial appointment for your chest port needle/dressing change if you are unable to schedule yourself for Friday with [facility] when you call on Friday. Please call to cancel this appointment if you are able to get an appointment with [facility]. Follow Up with [facility] (labwork and port needle/dressing changes) [phone] When Why: The surgery scheduling coordinator who would schedule you for this dressing change is out of the office this week. Nursing supervisor mixing was unable to schedule you as well. [...] can cap the tube - notify IR [id number], 04/29/23 10:34:14 EDT The Following Treatments Have Been Ordered for You Discharge Labs Discharge Outpatient Labwork - Ordered -- Chest Port Care/ Labs, Chemo/ATB infusion, Your appointment is: 05/13/23 14:00:00 EDT, Stop Datefor chest port care/labs is 05/16/2023., 05/07/23 14:48:00 EDT Discharge Outpatient Labwork - Ordered -- CBC, differential, hepatic panel, renal panel and CPK every Friday and send results to fax number [phone] Ruvalcaba CBC, differential, hepatic panel, [...] 12 hours Duration: 10 Days Pickup at [facility] New DAPTOmycin (DAPTOmycin 500 mg intravenous injection) 383.4 Milligram Intravenous Every 24 hours Duration: 10 Days Pickup at [facility] Changed LORazepam (LORazepam 1 mg [...] hours as needed for Pain Pharmacy Information [facility]: [address] [place] [address] [phone] Please take this list to your next [...] Treatment for this condition includes: Antibiotic medicine. Ojrp-wyf-tntrkih medicines to treat discomfort. Drinking enough water [...] Follow these instructions at home: Medicines Take zrwl-oqb-rkdiyux and prescription medicines only as told by [...] 07/30/2006 Document Revised: 10/07/2019 Document Reviewed: 04/29/2019 What the Trend Patient Education 2020 [employer] Additional Information VACCINATE! IT SAVES LIVES! Members of the community who have not yet received the COVID-19 vaccine and would like to receive it can visit one of [facility] vaccine clinics. There are many vaccine clinic locations within the [facility]. For locations and available times, please visit [email or web address].coronavirus.[place].gov/. It is important to note that some COVID mobile vaccine clinics are held outdoors and may be canceled in rainy or stormy conditions. To learn more about pediatric vaccinations (ages 5-11), we invite you to visit the [facility] webpage. [email or web address]/[email or web address] [email or web address].htmlTo learn more about the COVID-19 vaccine, we invite you to visit the CDC website for a list of frequently asked questions.https://www.cdc.gov/coronavirus/2019-ncov/vaccines/faq.html [facility] Patient Portal Access Instructions: Stay connected with your healthcare team and access your personal medical information anytime with the [facility] Patient Portal. Please follow the directions below to create your [facility] account: 1.Access the email account you provided upon registration to the hospital/physician office.2.Look for an invitation email from [facility].3.Open the email and access the invitation link: AcceptInvitation to [facility].4.Fill in the required quintero to create your account. To access your account, visit [email or web address]. Click the blue button labeled Access Patient [...] who you will allowto register on the [facility] Patient Portal for access to your information. You can also access the [facility] Patient Portal on the [facility] joya. Simply click on Patient Portal and then log into your account. If you would like to receive a full copy of your medical records, please contact the [facility] Medical Records Department by calling [phone], Friday through Friday between 8 a.m. and [...] Call your local pharmacy or go to http://bit.TXCOM/5Y5Zq8m to find one close to you.3.Make use of household items: Use cat litter or old coffee grounds to dispose medications if other options arenot available. Mix your drugs with these household products, seal them in an airtight container andthrow it into the garbage. Call [facility]: [phone] to be sure your drugs can be [...] aware that I should contact my doctor. Patient/Physical Therapy Aide Signature: Date/Time: Relationship to Patient: Witness Name/Signature: Date/Time: [id number] Note Date of Service 05/07/2023 Chief Complaint [...] NOLAN MOODY MD on 05/07/2023 06:31 AM [facility]Sqqgjlpa21-04-5734 Note Date of Service 05/07/2023 Chief Complaint [...] NOLAN MOODY MD on 05/07/2023 06:31 AM [facility]Sulskywg03-86-3762 Note Date of Service 05/06/2023 Chief Complaint [...] AM Digitally Signed by CLOTILDE GARCIA MD [facility] [id number] Note Date of Service 05/05/23 Chief Complaint [...] TIMO MENCHACA DO on 05/05/2023 06:48 AM [facility]Gwchkpyp38-62-0175 Infectious disease Progress note Date of Service [...] every 12 hourly PO with SOT being 6/3 0 and EOT being 05/16 treating as complicated UTI in setting of foreign body. Midline requested Please obtain CBC, differential, hepatic panel, renal panel and CPK every Friday and send results to fax number [phone] Ruvalcaba Please call Dr. Ruvalcaba's office for a follow-up appointment in 2 weeks, Phone number [phone]. Digitally Signed by Emili Clark RN on 05/05/2023 10:48 AM Digitally Signed by NATHAN BASILIO MD on 05/05/2023 02:48 PM [facility] CincinnatiWxmlfjll79-26-6569 Note Date of Service 05/05/23 Chief Complaint [...] TIMO MENCHACA DO on 05/05/2023 06:48 AM [facility] CincinnatiLjbwhyhz54-48-5237 Infectious disease Consult note Date of Service 05/03/2023 Reason for Consultation Complicated UTI-polymicrobial Referring Physician Dr. Martin History of Present Illness This is a 32 yo female with history of Stage III cervical cancer s/p chemoradiation currently in remission, presents to [facility] emergency room for concern for UTI and [...] for antimicrobial management. Discussed the case with APPLICATION DEVELOPMENT DIRECTOR team yesterday, patient continues to note improvement so far on current antibiotic therapy with 3 attention and abdominal discomfort Review of Systems Urinary retention abdominal pain and bilateral flank pain and generalized fatigue, otherwise [id number] point review of system was recent fevers [...] s/p chemoradiation currently in remission, presents to [facility] emergency room for concern for UTI and [...] she agreed to the plan Discussed with APPLICATION DEVELOPMENT DIRECTOR team yesterday Thank you for this consultation, [...] RUVALCABA BA, MD on 05/03/2023 10:12 AM [facility] CincinnatiEsmylhxc21-28-7068 Palliative care Progress note Date of Service [...] worsening abdominal and back pains. Patient returns [facility] on 04/27/2023 with similar symptoms of abdominal pain and flank pain. Patient is status post nephro tube exchange, continues on antibiotic for UTI.Patient continues with uncontrolled cancer related pain, palliative care consulted for pain management. Goals of care: Continues to receive goal congruent care. Patient states plan is for outpatient evaluation at [facility]. Palliative care consulted for symptom management, patient verbalizes pain is improving Next of kin: Patient's parents are . Patient has no children, she is not . She has 1biological sister, Zandra. She has stepdad who remains supportive and involved in her life. Per [place] revised code in the event she is [...] by NUBIA POWERS on 05/01/2023 10:55 AM [facility] CincinnatiYcipijbw56-23-6162 Note IR Procedure Record Summary Primary Physician: MADELINE APARICIO MD Finalized Date/Time: 05/01/23 09:20:17 Pt. Name: LALY NAVAS Austen /Sex: 1990 Female Med Rec #: [id number] Physician: FLIP MARTIN MD Financial #: [id number] Pt. Type: I Room/Bed: [facility]/A Admit/Disch: 04/27/23 16:03:09 - Institution: Allergies identified [...] Henry RN Corey Amanda K Role Performed Auto Parker 1 Procedure Nurse Details Time In 04/29/23 [...] mL Medication OMNIPAQUE 300 50ML 10/PK Y-530 [facility] [id number] Radiology Flouroscopy Fluoroscopy Used? Yes Fluoro Dose (mGy) 54.12 Fluoro Time 3.1mins Radiology Local Local Used? Yes Local Type: lidocaine 2% Local Dose 10cc Radiology Procedure Site Site/Location Lt side back Site Condition No complications Suture 0 Prolene Dressing Type Gauze sponge 4 X 4, Tagaderm Technologist Notes 8.1VYw63yd Crawford Nephroureterostomy Stent inserted on the LT side [...] Corey Snider, JAMAL Whitehead Verbal Order Read MARKUS, MADELINE APARICIO, MADELINE [...] Radiology - Action Plan Outcomes Met? Yes Accounting Consultant JAMAL Feliciano Completing Procedure Plan Last Modified [...] Harding 04/29/23 13:59 Karolina Prater 05/01/23 09:20 [facility]Gpbacgcs02-44-8839 Note ORIGINAL HISTORY: ORDERING SYSTEM PROVIDED HISTORY: Reason for Exam: Patient with UTI and nephrostomy tube not replaced since 02/17 COMPARISON: CT 04/27/23; last change 02/17/23 PROCEDURE: 1. Nephroureteral drain tube exchange under fluoroscopy LATERALITY: Left VETERINARY BACTERIOLOGIST: Dr. Aparicio FILM PROCESSING UTILITY WORKER: None The procedure, risks, and alternatives, were discussed and all questions were answered. Informed consent obtained. Maximal sterile barrier technique, hand hygiene, skin prep, and sterile ultrasound techniques (if used) utilized. Percutaneous site was sterilely prepped and draped. Time out performed. Drive Away Driver image demonstrates stable appearance of the nephroureteral [...] nursing personnel under direct supervision by the knurling machine operator. SEDATION TIME (min): 50 FLUORO (min): [...] 04/30/2023 3:21:11 PM Ordering Provider: SYBIL LYNCH [facility] CincinnatiPbhubkwf47-67-3543 Note Nephrostomy site with gauze & transparent dressing, no complications. Bag with yellow urine noted. Digitally Signed by JAMAL Phipps on 04/30/2023 02:47 PM [facility] [id number] Palliative care Consult note Date of Service [...] worsening abdominal and back pains. Patient returns [facility] on 04/27/2023 with similar symptoms of abdominal [...] is realistic that she will not be pain-free.Patient denies cardiac related chest pain, shortness of [...] Result Date: April 27, 2023 Verified By: BALAJI DENNY MDHEN M CLINICAL STATEMENT: IMPRESSION: Left collecting system [...] worsening abdominal and back pains. Patient returns [facility] on 04/27/2023 with similar symptoms of abdominal [...] biological sister, Zandra. I educated patient per [place] revised code in the event she is [...] Cancer related pain I have reviewed the [place] Automated Rx Reporting System (OARRS) report for [...] by NUBIA POWERS on 04/30/2023 11:33 AM [facility] CincinnatiSfrbzncp88-77-2120 Note Patient not in room. Plan for Nephrostomy exchange today. Will reassess later. Digitally Signed by JAMAL Phipps on 04/29/2023 11:07 AM [facility] CincinnatiQzrpfjfx75-24-3188 Note ORIGINAL HISTORY: ORDERING SYSTEM PROVIDED HISTORY: Reason for Exam: Patient with UTI and nephrostomy tube not replaced since 02/17 COMPARISON: CT 04/27/23; last change 02/17/23 PROCEDURE: 1. Nephroureteral drain tube exchange under fluoroscopy LATERALITY: Left VETERINARY BACTERIOLOGIST: Dr. Aparicio FILM PROCESSING UTILITY WORKER: None The procedure, risks, and alternatives, were discussed and all questions were answered. Informed consent obtained. Maximal sterile barrier technique, hand hygiene, skin prep, and sterile ultrasound techniques (if used) utilized. Percutaneous site was sterilely prepped and draped. Time out performed. Drive Away Driver image demonstrates stable appearance of the nephroureteral [...] nursing personnel under direct supervision by the knurling machine operator. SEDATION TIME (min): 50 FLUORO (min): [...] Sign Date: 04/30/2023 3:21:11 PM Ordering Provider: [facility]06-27-2023 Procedure note Brief IR Post Procedure Note - Inpatient/Obs Pre Procedure Dx: Cancer, left hydro Post Procedure Dx: Same Procedure: 1. Left PCNU superintendent operations division: Markus Hardening Machine Operator Helper: None Anesthesia: Local, moderate sedation EBL: Minimal [...] MD Vascular & Interventional Radiology [facility] ([facility]) [email or web address] Pager: [phone] [facility] IR Dept (26/05): [id number] [facility] [id number] [facility] Digitally Signed by MADELINE APARICIO MD on 04/29/2023 10:33 AM [facility] CincinnatiRthhvplz06-03-8904 History and physical note Date of Service 04/27/23 Chief Complaint Unable to uinate X 9 days. 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 History of Present Illness 32 yo Woman with history of Stage IIIB cervical cancer s/p chemoradiation currently in remission, presents to [facility] emergency room for concern for UTI and [...] subsequently admitted for treatment of complicated UTI. 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 Amenorrheic since initiation of Chemoradiation. Denies mammogram ever. Colonoscopy in 2019. Denies history of STDs. Not sexually active. Family History Mother with breast cancer Sister with cervical cancer Grandmother with cervical cancer Aunts with cervical cancer Cousins with cervical cancer ONCOLOGY HISTORY: - 04/04/2020: CT scan abdomen and pelvis. [facility]. Thickened cervical wall with involvementof the [...] underwent for intracavitary brachii therapy applications with djdn-soua-mudc iridium 192afterloading device utilizing a tandem and [...] Start Date End Date Elapsed Days IMRT DEPUTY SHERIFF CUSTODY Pelvis 6X 180 4,500 04/26/2020 06/02/2020 37 3D PM Bst 18X 180 540 06/05/2020 06/07/2020 2 GENETIC TESTING: - [facility]. No reportable somatic or [...] SASHA MON MD on 04/28/2023 03:41 AM [facility] CincinnatiSefclukm04-[facility]-1952 Evaluation + Plan noteExtracted from: Title:History and [...] in the past seeing a urologist in [place] to consider nephrectomy. She has had a consultation at previously, but she states that she would rather see somebody at [facility] because she did not necessarily feel [...] Please also put in a consult to DEPUTY SHERIFF CUSTODY oncology nurse navigator. I explained the plan to the patient. I answered all of her questions. FLIP MARTIN MD FACOG Future Appointments Appointment Date:05/13/2023 02:00:00 PM Scheduled Provider: Location:INF Appointment Type:INF Labwork Appointment Date:05/15/2023 03:20:00 PM Scheduled Provider:FLIP MARTIN MD Location:[facility]ER[facility] ONC Appointment Type:SO OV Follow Up Appointment [...] IR Neph Cath-Neph Ureter W/Guide Left 06/24/23 [facility] 06-26-2023 Progress note Date of Service APRIL [...] FLIP MARTIN MD on 04/28/2023 07:51 AM [facility] [id number] History and physical note Date of Service 04/27/23 Chief Complaint Unable to uinate X 9 days. 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 History of Present Illness 32 yo Woman with history of Stage IIIB cervical cancer s/p chemoradiation currently in remission, presents to [facility] emergency room for concern for UTI and [...] subsequently admitted for treatment of complicated UTI. 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 Amenorrheic since initiation of Chemoradiation. Denies mammogram ever. Colonoscopy in 2020. Denies history of STDs. Not sexually active. Family History Mother with breast cancer Sister with cervical cancer Grandmother with cervical cancer Aunts with cervical cancer Cousins with cervical cancer ONCOLOGY HISTORY: - 04/04/2020: CT scan abdomen and pelvis. [facility]. Thickened cervical wall with involvementof the [...] underwent for intracavitary brachii therapy applications with aeoj-lrmj-citq iridium 192afterloading device utilizing a tandem and [...] Start Date End Date Elapsed Days IMRT DEPUTY SHERIFF CUSTODY Pelvis 6X 180 4,500 04/26/2020 06/02/2020 37 3D PM Bst 18X 180 540 06/05/2020 06/07/2020 2 GENETIC TESTING: - Patient had genetic testing sent through [facility]. No reportable somatic or germline pathogenic or [...] SASHA MON MD on 04/28/2023 03:41 AM [facility] [id number] Note ORIGINAL EXAMINATION: CT OF THE ABDOMEN [...] Sign Date: 04/27/2023 11:04:03 PM Ordering Provider: [facility]06-25-2023 Note ORIGINAL EXAMINATION: CT OF THE [...] Sign Date: 04/27/2023 11:04:03 PM Ordering Provider: [facility]06-25-2023 History and physical note Date of Service 04/27/23 Chief Complaint Unable to uinate X 9 days. 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 History of Present Illness 32 yo Woman with history of Stage IIIB cervical cancer s/p chemoradiation currently in remission, presents to [facility] emergency room for concern for UTI and [...] subsequently admitted for treatment of complicated UTI. 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 Amenorrheic since initiation of Chemoradiation. Denies mammogram ever. Colonoscopy in 2019. Denies history of STDs. Not sexually active. Family History Mother with breast cancer Sister with cervical cancer Grandmother with cervical cancer Aunts with cervical cancer Cousins with cervical cancer ONCOLOGY HISTORY: - 04/04/2020: CT scan abdomen and pelvis. [facility]. Thickened cervical wall with involvementof the [...] underwent for intracavitary brachii therapy applications with hekn-vqjm-nvie iridium 192afterloading device utilizing a tandem and [...] Start Date End Date Elapsed Days IMRT DEPUTY SHERIFF CUSTODY Pelvis 6X 180 4,500 04/26/2020 06/02/2020 37 3D PM Bst 18X 180 540 06/05/2020 06/07/2020 2 GENETIC TESTING: - Patient had genetic testing sent through [facility]. No reportable somatic or germline [...] SASHA MON MD on 04/28/2023 03:41 AM [facility]rutxuk91[facility]1880 Hospital Discharge instructions Patient Education 03/05/2023 17:42:39 [...] or mouth. Supplies needed: Soap. Alcohol-based hand fruit coordinator. Standard cleaning products. Disinfectants, such as bleach. [...] water are not available, use alcohol-based hand fruit coordinator. Avoid touching your face, mouth, nose, or [...] water. Air-dry your dishes or use a furnace and wash equipment operator. Do not share dishes or eating [...] certain germs and not others. Read the needle punch machine operator helper's instructions or read online resources to determine [...] minutes after each use, or according to needle punch machine operator helper's instructions. Wash reusable cleaning cloths and sanitize [...] water are not available, use alcohol-based hand fruit coordinator. In general: Stay home except to get [...] for Professionals in Infection Control and Epidemiology: professionals.site.apic.org/rswnlpov-tu-oaob/npv-dcgwqhjlcb-fbqqjmx/home/ Summary It is important to know how [...] 07/29/2009 Document Revised: 02/15/2020 Document Reviewed: 01/14/2020 What the Trend Patient Education 2019 [employer]. Follow Up Care 02/23/2023 11:57:17 With:MARGOTH RUVALCABA BA, MD, Infectious Disease, Infectious Disease Group Address: [facility] [address] [place] [address]- When: Unknown Comments:Call for a follow up appointment within 1 week With:OLE SUTTON MD, [facility] Address: [address] [place] [address]- [phone] When: Unknown Comments:Call for a follow up appointment within 1 week With:[facility] Address: [address] [place] [address]- [phone] When:03/10/2023 09:00:00 Comments:Go to the ambulatory unit for your once weekly labwork and port dressing change on 03/10 at 9AM With:FLIP MARTIN MD Address: [address] [facility] [place] [address]- [phone] When:03/05/2023 15:30:00 Comments:Follow-up at scheduled appointment on March 05 at 3:30pm or call the office sooner if problems arise. [facility] 05-03-2023 Nurse Progress note Patient went home on IV antibiotics so she needed to stay accessed with her port for delivery of said IV antibiotics. Digitally Signed by Dania Hall RN on 03/05/2023 06:51 PM [facility] CincinnatiDohcfala37-11-1606 Note Date of Service 03/05/2023 Chief Complaint [...] sleep. 6. Tobacco use - Nicotine patches (/2 PPD). 7. Anxiety - Continue Ativan TID [...] FARZANA CAST DO on 03/05/2023 06:40 AM [facility] CincinnatiKbxqwrhu50-13-7171 Note Discharge Instructions Thank you for allowing [facility] to assist you with your healthcare needs. [...] 03/19/2023 03:10 PM EDT FLIP MARTIN MD [facility] [address] [place] [phone] IR Neph Cath-Neph Ureter W/Guide Left 05/12/2023 11:00 AM EDT IR Follow Up Appointments Follow Up with [facility] When 03/10/2023 09:00 AM EDT Why: Go to the ambulatory unit for your once weekly labwork and port dressing change on 03/10 at 9AM Where: [address] [place] [address]- [phone] Follow Up with FLIP MARTIN MD When 03/05/2023 03:30 PM EDT Why: Follow-up at scheduled appointment on March 05 at 3:30pm or call the office sooner if problems arise. Where: [address] [facility] [place] [address] [phone] Follow Up with MARGOTH RUVALCABA BA, MD, Infectious Disease, Infectious Disease Group When Why: Call for a follow up appointment within 1 week Where: [facility] [address] [place] [address]- Follow Up with OLE SUTTON MD, [facility] When Why: Call for a follow up appointment within 1 week Where: [address] [facility] [address] [facility] [place] [address] [phone] The Following Activity and Diet Have Been [...] or mouth. Supplies needed: Soap. Alcohol-based hand fruit coordinator. Standard cleaning products. Disinfectants, such as bleach. [...] water are not available, use alcohol-based hand fruit coordinator. Avoid touching your face, mouth, nose, or [...] water. Air-dry your dishes or use a furnace and wash equipment operator. Do not share dishes or eating [...] certain germs and not others. Read the needle punch machine operator helper's instructions or read online resources to determine [...] minutes after each use, or according to needle punch machine operator helper's instructions. Wash reusable cleaning cloths and sanitize [...] water are not available, use alcohol-based hand fruit coordinator. In general: Stay home except to get [...] for Professionals in Infection Control and Epidemiology: professionals.site.apic.org/xcxannqo-ao-npcq/wwa-zpxlqkcasv-upxssli/home/ Summary It is important to know how [...] Document Reviewed: 01/14/2020 Elsevier Patient Education 2020 What the Trend Inc. Additional Information VACCINATE! IT SAVES LIVES! Members of the community who have not yet received the COVID-19 vaccine and would like to receive it can visit one of [facility] vaccine clinics. There are many vaccine clinic locations within the State. For locations and available times, please visit https://gettheshot.coronavirus.[place].gov/. It is important to note that some COVID mobile vaccine clinics are held outdoors and may be canceled in rainy or stormy conditions. To learn more about pediatric vaccinations (ages 5-11), we invite you to visit the [facility] webpage. https://www.akronZyrras.org/pages/1052-Dvvca-Jnhlcfbqzqx-Iumfyjglrd-Jbnig-Pti stions.htmlTo learn more about the COVID-19 vaccine, we invite you to visit the CDC website for a list of frequently asked questions. https://www.cdc.gov/coronavirus/2019-ncov/vaccines/faq.html [facility] Patient Portal Access Instructions: Stay connected with your healthcare team and access your personal medical information anytime with the [facility] Patient Portal.If you would like a full copy of your medical records, please contact the [facility] Medical Records Department, Friday through Friday between 8a.m. and 4:30p.m. Please follow the directions below to access the portal: 1.Access the email account you provided upon registration to the hospital.2.Look for an invitation email from [facility].3.Open the email and access the invitation link: Accept Invitation to [facility]4.Fill in the required quintero to create your account. Sign into www.Fashion & You with your username and password that you [...] you will allow to register on the [facility] Patient Portal for access to your information. You can also access the [facility] Patient Portal on the Scripted joya. Simply click on Health Records under Positronta and then click on the Mogujie logo. HOW TO SAFELY DISPOSE OF PRESCRIPTION [...] Call your local pharmacy or go to http://Solidarium.TXCOM/7V5So1r to find one close to you.3.Make use of household items: Use cat litter or old coffee grounds to dispose medications if other options arenot available. Mix your drugs with these household products, seal them in an airtight container andthrow it into the garbage. Call [facility]: [phone] to be sure your drugs can be [...] aware that I should contact my doctor. Patient/Physical Therapy Aide Signature: Date/Time: Relationship to Patient: Witness Name/Signature: Date/Time: [facility] CincinnatiXsdkmvdv32-82-8900 Note Date of Service 03/05/2023 Chief Complaint [...] FARZANA CAST DO on 03/05/2023 06:40 AM [facility] CincinnatiQjprsbax66-54-9605 Note Date of Service 03/05/2023 Chief Complaint [...] sleep. 6. Tobacco use - Nicotine patches (11/04 PPD). 7. Anxiety - Continue Ativan [...] FARZANA CAST DO on 03/05/2023 06:40 AM [facility] CincinnatiArydnpil80-65-6626 Note Date of Service 03/04/2023 Chief Complaint [...] EDT Consult to Palliative Care SCD Machine ([id number]) SCD Sleeves - Knee ([id number]) Patient is a 32 yo woman with [...] FARZANA CAST DO on 03/04/2023 06:43 AM [facility] CincinnatiDdnwxxkl36-92-2151 Palliative care Progress note Date of Service [...] of her medications be sent to the [facility] pharmacy so that it is less complicated [...] SANTINO SAWYER MD on 03/04/2023 09:57 AM [facility] CincinnatiLjinahnz91-60-9917 Palliative care Progress note Date of Service [...] of her medications be sent to the [facility] pharmacy so that it is less complicated [...] SANTINO SAWYER MD on 03/04/2023 09:57 AM [facility] CincinnatiQfuhjdcv06-27-6302 Palliative care Progress note Date of Service [...] of her medications be sent to the [facility] pharmacy so that it is less complicated [...] SANTINO SAWYER MD on 03/04/2023 09:57 AM [facility] CincinnatiVhirsvna93-82-0886 Note Date of Service 03/04/2023 Chief Complaint [...] EDT Consult to Palliative Care SCD Machine ([id number]) SCD Sleeves - Knee ([id number]) Patient is a 32 yo woman with [...] FARZANA CAST DO on 03/04/2023 06:43 AM [facility] CincinnatiXrbsjegd30-14-0705 Note Date of Service 03/04/2023 Chief Complaint [...] EDT Consult to Palliative Care SCD Machine ([id number]) SCD Sleeves - Knee ([id number]) Patient is a 32 yo woman with [...] FARZANA CAST DO on 03/04/2023 06:43 AM [facility] CincinnatiRszgvpfy22-65-5882 Note Date of Service 03/03/2023 Chief Complaint [...] FARZANA CAST DO on 03/03/2023 06:56 AM [facility] CincinnatiAooexnme81-44-2677 Note Date of Service 03/03/2023 Chief Complaint [...] FARZANA CAST DO on 03/03/2023 06:56 AM [facility] CincinnatiFchaifbk56-35-5352 Infectious disease Progress note Date of Service [...] and back pain. She then presented to [facility]. Patient was placed on meropenem. Patient urine [...] by CAMERON RICKS on 02/28/2023 10:42 AM [facility] CincinnatiFnsxvhut94-59-8729 Urology Consult note Date of Service February [...] tube. The patient is not known to [facility]. She reports that she gets her [...] and also the local urologist here in [place]. Depending on These discussions, this may warrant referral to [facility] vs local treatment. -- Tricia Diop MD Urology [facility] Problem List/Past Medical History Ongoing Acute [...] TRICIA DIOP MD on 02/28/2023 12:08 PM [facility] CincinnatiNjhlbxtc32-39-7330 Infectious disease Progress note Date of Service [...] and back pain. She then presented to [facility]. Patient was placed on meropenem. Patient urine [...] by CAMERON RICKS on 02/28/2023 10:42 AM [facility] CincinnatiAtewzvgr36-15-9220 Infectious disease Progress note Date of Service [...] and back pain. She then presented to [facility]. Patient was placed on meropenem. Patient urine [...] - Continue IV Ertapenem. Will discuss with DEPUTY SHERIFF CUSTODY regarding possible IR aspiration. Left nephrostomy tube in place, last exchanged 02/17/23. Recommend urology consult. All other management per primary team Shared/split visit with my collaborating physician Dr. Margoth Martin This dictation was performed using voice recognition software and may include grammatical and/or spelling errors. Digitally Signed by CAMERON RICKS on 02/27/2023 02:49 PM Digitally Signed by CAMERON RICKS on 02/27/2023 02:57 PM [facility] CincinnatiYwrgmwob59-92-9298 Infectious disease Progress note Date of Service [...] and back pain. She then presented to [facility]. Patient was placed on meropenem. Patient urine [...] - Continue IV Ertapenem. Will discuss with DEPUTY SHERIFF CUSTODY regarding possible IR aspiration. Left nephrostomy tube in place, last exchanged 02/17/23. Recommend urology consult. All other management per primary team Shared/split visit with my collaborating physician Dr. Margoth Martin This dictation was performed using voice recognition software and may include grammatical and/or spelling errors. Digitally Signed by CAMERON RICKS on 02/27/2023 02:49 PM Digitally Signed by CAMERON RICKS on 02/27/2023 02:57 PM [facility] CincinnatiPmytjvnm23-53-3791 Note ORIGINAL EXAMINATION: CT OF THE ABDOMEN [...] Sign Date: 02/27/2023 4:48:38 AM Ordering Provider: [facility]04-26-2023 Note ORIGINAL EXAMINATION: CT OF THE [...] Sign Date: 02/27/2023 4:48:38 AM Ordering Provider: [facility]04-26-2023 Infectious disease Consult note Date of [...] and back pain. She then presented to [facility]. Patient was placed on meropenem. Patient urine [...] by CAMERON RICKS on 02/26/2023 03:51 PM [facility] CincinnatiWttyvcys12-57-0116 Palliative care Progress note Code Status Code [...] to make her own medical decisions, per [place] law medical decision making would fall to [...] by NUBIA POWERS on 02/26/2023 01:02 PM [facility] CincinnatiXplscnrw93-28-1234 Infectious disease Consult note Date of Service [...] and back pain. She then presented to [facility]. Patient was placed on meropenem. Patient urine [...] by CAMERON RICKS on 02/26/2023 03:51 PM [facility] CincinnatiHsrgfinm47-60-6977 Palliative care Progress note Date of Service [...] to make her own medical decisions, per [place] law medical decision making would fall to [...] counselor [facility] at [facility] in [place]. Patient's counselor is Lenora. Review of labs, historical records, progress notes, and diagnostics Digitally Signed by NUBIA POWERS on 02/25/2023 03:33 PM [facility] CincinnatiJaathxnu41-44-7578 Note System generated consult secondary to documentation of established left nephrostomy tube. Insertionsite has a dry and intact gauze with transparent dressing. Nephrostomy drainable pouch intact, no issues. Digitally Signed by JAMAL Bach February on 02/25/2023 12:38 PM [facility] CincinnatiAosvdacd66-12-4370 Palliative care Consult note Date of Service [...] to make her own medical decisions, per [place] law medical decision making would fall to [...] by NUBIA POWERS on 02/24/2023 02:58 PM [facility] CincinnatiIlovbyvu70-81-3333 History and physical note Date of Service 02/23/2023 Chief Complaint Pt c/o abdominal and back pain for the past two weeks, rates pain 9/10. History of Present Illness 32 yo Woman with history of Stage IIIB cervical cancer s/p chemoradiation currently in remission, presents to [facility] emergency room for concern for UTI and [...] Zofran. Blood culture and urine culture sent. 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 Amenorrheic since initiation of Chemoradiation. Denies mammogram ever. Colonoscopy in 2019. Denies history of STDs. Not sexually active. Family History Mother with breast cancer Sister with cervical cancer Grandmother with cervical cancer Aunts with cervical cancer Cousins with cervical cancer ONCOLOGY HISTORY: - 04/04/2020: CT scan abdomen and pelvis. [facility]. Thickened cervical wall with involvementof the [...] underwent for intracavitary brachii therapy applications with ggwd-lwkh-dsmb iridium 192afterloading device utilizing a tandem and [...] Start Date End Date Elapsed Days IMRT DEPUTY SHERIFF CUSTODY Pelvis 6X 180 4,500 04/26/2020 06/02/2020 37 3D PM Bst 18X 180 540 06/05/2020 06/07/2020 2 GENETIC TESTING: - Patient had genetic testing sent through [facility]. No reportable somatic or germline [...] JODI HILLIARD MD on 02/24/2023 07:51 AM [facility] CincinnatiJotuxgsk53-05-9736 Evaluation + Plan noteExtracted from: Title:DEPUTY SHERIFF CUSTODY/ONC History and Physical Author:ENZO JONES DO Date:02/23/23 [...] Date:03/19/2023 03:10:00 PM Scheduled Provider:FLIP MARTIN MD Location:DEPUTY SHERIFF CUSTODY ONC Appointment Type:SO OV Follow Up Appointment [...] IR Neph Cath-Neph Ureter W/Guide Left 06/02/23 [facility] 04-17-2023 Hospital Discharge instructions Patient Education 02/17/2023 10:41:47 Radiology- Nephrostomy/Nephroureteral Tube Exchange 12/26/2022(CUSTOM) [place] Nephrostomy/Nephroureteral Tube Exchange Discharge Instructions Interventional Radiology [facility] Imaging Services [facility] [place] [address] The procedure that you had done today [...] the feeling of the need to urinate. Hcuv-lba-gqfcmdc pain medication should be used for pain [...] the gauze. Supplies may be obtained at: [facility] [address] [facility] [address] [facility] Any questions or concerns, please contact your physician or Interventional Radiology at [phone] from 8-4:30pm Friday-Friday. If you do not [...] until you are awake and alert. Take coqc-ccf-ydrolrf and prescription medicines only as told by [...] 08/10/2014 Document Revised: 10/02/2018 Document Reviewed: 02/08/2017 What the Trend Patient Education 2020 What the Trend Inc. Follow Up Care 12/16/2022 14:31:35 With:BRITTNI LU BRIM GREASER OPERATOR-EMPLOYER RELATIONS REPRESENTATIVE Address: [address] [place] [address] [place] [address]- [phone] When: Unknown With:Go to emergency room if symptoms worsen Address:Unknown When: Unknown [facility] 04-17-2023 Note* JAMAL Feliciano: SIGN, AUTHOR, PERFORM Event Display: IR Procedure Record Authored Date: IR Procedure Record Summary Primary Physician: VIRAL MANUEL MD Finalized Date/Time: 02/17/23 10:12:03 Pt. Name: LALY NAVAS Austen /Sex: 1990 Female Med Rec #: [id number] Physician: Financial #: [id number] Pt. Type: O Room/Bed: / Admit/Disch: 02/17/23 [...] MANUEL MD, Jacque M. Hershberger, Terra L Make Up Operator Helper Role Performed Primary Surgeon Scrub Technologist Circulating [...] mL/beat Medication OMNIPAQUE 300 50ML 10/PK Y-530 [facility] [id number] Radiology Flouroscopy Fluoroscopy Used? Yes Fluoro Dose [...] than Primary Last Modified By: Patti Ching Make Up Operator Helper 02/17/23 09:58:41 Immediate Post Procedure Note - IR Signed By: VRIAL MANUEL MD 02/17/23 10:10 Allergy Information- IR [...] images and Patti Ching results are properly Make Up Operator HelperBraden Oglesby RN labeled and [place] appropriately displayed, Alcohol [...] Radiology - Action Plan Outcomes Met? Yes Accounting Consultant JAMAL Feliciano Completing Procedure Plan Last Modified By: JAMAL Feliciano 02/17/23 09:46:55 Case Comments <None> Finalized By: JAMAL Feliciano Document Signatures Signed By: JAMAL Feliciano 02/17/23 10:12 [facility] 04-17-2023 Summary of episode note Discharge Instructions Thank you for allowing [facility] to assist you with your healthcare needs. The following is importantdischarge information regarding your hospital visit. Your Care Team FLIP MARTIN MD What to do next Scheduled Follow-Up Appointments Appointment Type When With Where Contact InformationSO OV 02/20/2023 02:50 PM EDT FLIP MARTIN MD [facility] [address] [place] [phone] Follow Up Appointments Follow Up with BRITTNI LU When Where: [address] [place] [address] [place] [address]- [phone] Follow Up with Go to emergency room [...] medication providers or retail pharmacies. Education Materials [place] Nephrostomy/Nephroureteral Tube Exchange Discharge Instructions Interventional Radiology [facility] Imaging Services [address] [place] [address] The procedure that you had done today [...] the feeling of the need to urinate. Swep-kzs-zyexcri pain medication should be used for pain [...] the gauze. Supplies may be obtained at: [facility] [address] [facility] [address] [facility] Any questions or concerns, please contact your physician or Interventional Radiology at [phone] from 8-4:30pm Friday-Friday. If you do not [...] until you are awake and alert. Take wygj-aoi-kxqocpx and prescription medicines only as told by [...] 08/10/2014 Document Revised: 10/02/2018 Document Reviewed: 02/08/2017 What the Trend Patient Education 2020 What [employer] T[employer] Inc. Additional Information VACCINATE! IT SAVES LIVES! Members of the community who have not yet received the COVID-19 vaccine and would like to receive it can visit one of [facility] vaccine clinics. There are many vaccine clinic locations within the [facility]. For locations and available times, please visit https://gettheshot.coronavirus.[place].gov/. It is important to note that some COVID mobile vaccine clinics are held outdoors and may be canceled in rainy or stormy conditions. To learn more about pediatric vaccinations (ages 5-11), we invite you to visit the [facility] webpage. https://www.[facility].org/pages/3384-Gtoon-Ykvljmrhgtz-Avhzimpepq-Lchlu-Uks stions.htmlTo learn more about the COVID-19 vaccine, we invite you to visit the CDC website for a list of frequently asked questions. https://www.cdc.gov/coronavirus/2019-ncov/vaccines/faq.html [facility] Access Instructions: Stay connected with your healthcare team and access your personal medical information anytime with the [facility] Patient Portal.If you would like a full copy of your medical records, please contact the [facility] Medical Records Department, Friday through Friday between 8a.m. and 4:30p.m. Please follow the directions below to access the portal: 1.Access the email account you provided upon [facility].2.Look for an invitation email from [facility].3.Open the email and access the invitation link: Accept Invitation to [facility]4.Fill in the required quintero to create your account. Sign into www.Fashion & You with your username and password that you [...] you will allow to register on the [facility] Patient Portal for access to your information. You can also access the [facility] Patient Portal on the Scripted joya. Simply click on Health Records under [employer] and then click on the Mogujie logo. HOW TO SAFELY DISPOSE OF PRESCRIPTION [...] Call your local pharmacy or go to http://Solidarium.TXCOM/6Y6Vw4j to find one close to you.3.Make use of household items: Use cat litter or old coffee grounds to dispose medications if other options arenot available. Mix your drugs with these household products, seal them in an airtight container andthrow it into the garbage. Call [facility]: [phone] to be sure your drugs can be [...] aware that I should contact my doctor. Patient/Physical Therapy Aide Signature: Date/Time: Relationship to Patient: Witness Name/Signature: Date/Time: [facility]dhektfr83-38-7529 Procedure note INTERVENTIONAL RADIOLOGY POST PROCEDURE NOTE DATE: 02/17/2023 10:20:22 NAME: LALY NAVAS Pre-Procedure Diagnosis: Left ureteral obstruction. Post Procedure Diagnosis: Same. Polisher Dial: Dr. Viral Manuel Procedure: Left nephroureteral catheter exchange. Anesthesia: Procedural sedation. Findings: Success. Estimated Blood Loss: Minimal (Less Than 10 mL). Specimen: None. Complications: None. Full report with procedural details to follow and will become available under the Radiology tab of Results Review. Please contact for any questions or concerns. Viral Manuel MD Interventional Radiology Pager: [phone] Digitally Signed by VIRAL MANUEL MD on 02/17/2023 10:22 AM [place] [id number] Note IR Procedure Record Summary Primary Physician: VIRAL MANUEL MD Finalized Date/Time: 02/17/23 10:12:03 Pt. Name: LALY NAVAS Austen Mittal/Sex: 1990 Female Med Rec #: [id number] Physician: Financial #: [id number] Pt. Type: O Room/Bed: / Admit/Disch: 02/17/23 [...] MANUEL MD, Jacque M. Hershberger, Terra L Make Up Operator Helper Role Performed Primary Surgeon Scrub Technologist Circulating [...] mL/beat Medication OMNIPAQUE 300 50ML 10/PK Y-530 [facility] [id number] Radiology Flouroscopy Fluoroscopy Used? Yes Fluoro Dose [...] than Primary Last Modified By: Patti Ching Make Up Operator Helper 02/17/23 09:58:41 Immediate Post Procedure Note - [...] images and Patti Ching results are properly Make Up Operator HelperBraden Oglesby RN labeled and [place] appropriately displayed, Alcohol [...] Radiology - Action Plan Outcomes Met? Yes Accounting Consultant JAMAL Feliciano Completing Procedure Plan Last Modified By: JAMAL Feliciano 02/17/23 09:46:55 Case Comments Finalized By: JAMAL Feliciano Document Signatures Signed By: JAMAL Feliciano 02/17/23 10:12 [facility]72 Hospital Discharge instructions Patient Education 01/06/2023 15:48:10 Urinary Tract Infection, Adult, Gehp-ag-Tgke Urinary Tract Infection, Adult A urinary tract [...] Follow these instructions at home: Medicines Take zird-zjd-tmncsnu and prescription medicines only as told by [...] 04/07/2009 Document Revised: 10/07/2019 Document Reviewed: 04/29/2019 What the Trend Patient Education 2020 [employer]. Follow Up Care 01/01/2023 16:30:26 With:FLIP MARTIN MD Address: [address] [place] [address] [place] [address]- When:01/30/2023 14:10:00 [facility] 03-06-2023 Note Discharge Instructions Thank you for allowing [facility] to assist you with your healthcare needs. [...] schedule a follow up appointment Where: [address] [place] [address] [place] [address]- The Following Activity and Diet Have Been [...] 12 hours Duration: 4 Days Pickup at [facility] 1723 New mirtazapine (mirtazapine 15 mg oral tablet) 1 tab(s) by mouth Once a day Refills: 3 Pickup at [facility] Pharmacy Information [facility] 1724: [address] [place], [place] [id number] [phone] What How Much When Why Comments Stop [...] Follow these instructions at home: Medicines Take xfta-ofg-rheruno and prescription medicines only as told by [...] 04/07/2009 Document Revised: 10/07/2019 Document Reviewed: 04/29/2019 [employer] Patient Education 2020 [employer]. Additional Information VACCINATE! IT SAVES LIVES! Members of the community who have not yet received the COVID-19 vaccine and would like to receive it can visit one of [facility] vaccine clinics. There are many vaccine clinic locations within the [facility]. For locations and available times, please visit [email or web address]/. It is important to note that some COVID mobile vaccine clinics are held outdoors and may be canceled in rainy or stormy conditions. To learn more about pediatric vaccinations (ages 5-11), we invite you to visit the [facility] webpage. https://www.[facility].org/pages/9882-Wxtrn-Bletkcvrqxd-Kfxwxovcly-Tkksb-Vhx stions.htmlTo learn more about the COVID-19 vaccine, we invite you to visit the CDC website for a list of frequently asked questions. https://www.cdc.gov/coronavirus/2019-ncov/vaccines/faq.html [facility] Patient Portal Access Instructions: Stay connected with your healthcare team and access your personal medical information anytime with the [facility] Patient Portal.If you would like a full copy of your medical records, please contact the [facility] Medical Records Department, Friday through Friday between 8a.m. and 4:30p.m. Please follow the directions below to access the portal: 1.Access the email account you provided upon [facility].2.Look for an invitation email from [facility].3.Open the email and access the invitation link: Accept Invitation to [facility]4.Fill in the required quintero to create your account. Sign into www.Fashion & You with your username and password that you [...] you will allow to register on the [facility] Patient Portal for access to your information. You can also access the [facility] Patient Portal on the My Computer Works. Simply click on Health Records under [employer] and then click on the [facility] logo. [...] Call your local pharmacy or go to http://Solidarium.TXCOM/7D1Sg9t to find one close to you.3.Make use of household items: Use cat litter or old coffee grounds to dispose medications if other options arenot available. Mix your drugs with these household products, seal them in an airtight container andthrow it into the garbage. Call [facility]: [phone] to be sure your drugs can be [...] Patient Education Materials Urinary Tract Infection, Adult, Pzyl-gz-Xbit Medication Leaflets My discharge plan and instructions have been reviewed and explained to me and I,LALY NAVAS understand my current condition and have read and understand these discharge instructions. I have received a written copy of the plan/instructions. If I have questions, I am aware that I should contact my doctor. Patient/Physical Therapy Aide Signature: Date/Time: Relationship to Patient: Witness Name/Signature: Date/Time: [facility]gukixgk64-20-3724 Discharge summary Date of Service 01/06/2023 Discharge [...] Code Status - Ordered -- 01/01/23 17:37:00 [facility] FAYC-Arrest Intubate & Mechanical Vent, Constant Order Admission [...] schedule a follow up appointment Where: [address] [place] [address] [place] [address]- Follow Up Appointments 2 week follow up [...] PM Digitally Signed by FLIP MARTIN MD [facility] CincinnatiHtanfupx22-86-4645 Note Date of Service 01/06/2023 Chief Complaint [...] AM Digitally Signed by FLIP MARTIN MD [facility] CincinnatiKxlxgrdt85-71-3797 Note Date of Service 01/05/2023 Chief Complaint [...] ENZO JONES DO on 01/05/2023 08:50 AM [facility] CincinnatiYsjvptco69-14-4551 Note Date of Service 01/05/2023 Chief Complaint [...] Eosinophil, Absolute 0.4 Basophil, Absolute 0.1 01/04 05 Creatinine Lvl (s) 0.81 Albumin Level 2.6 [...] ENZO JONES DO on 01/05/2023 08:50 AM [facility] CincinnatiKrlfeuwr53-36-4800 Note Date of Service 01/05/2023 Chief Complaint [...] Eosinophil, Absolute 0.4 Basophil, Absolute 0.1 01/04 05 Creatinine Lvl (s) 0.81 Albumin Level 2.6 [...] ENZO JONES DO on 01/05/2023 08:50 AM [facility] CincinnatiFiebubaf74-07-5710 Note Date of Service 01/05/2023 Chief Complaint [...] ENZO JONES DO on 01/05/2023 08:50 AM [facility] CincinnatiThdokwts35-74-9365 Note Date of Service 01/04/23 Chief Complaint [...] entire meals. She states that the Dilaudid CHIEF SUBSTATION OPERATOR helpswith her pain. She is denying any [...] mL, IV Push, q4h Continuous: (2) HYDROmorphone CHIEF SUBSTATION OPERATOR in 50mL NS 10 mg 10 mg [...] to history of chemoradiation therapy - Dilaudid CHIEF SUBSTATION OPERATOR started overnight History of cervical cancer - [...] resolving with remeron Disposition: IV antibiotics. dilaudid CHIEF SUBSTATION OPERATOR for pain control Digitally Signed by NIECY THAPA DO on 01/04/2023 07:25 AM [facility] CincinnatiHdmnwrrr05-82-3680 Note Date of Service 01/04/23 Chief Complaint [...] entire meals. She states that the Dilaudid CHIEF SUBSTATION OPERATOR helpswith her pain. She is denying any [...] mL, IV Push, q4h Continuous: (2) HYDROmorphone CHIEF SUBSTATION OPERATOR in 50mL NS 10 mg 10 mg [...] to history of chemoradiation therapy - Dilaudid CHIEF SUBSTATION OPERATOR started overnight History of cervical cancer - [...] resolving with remeron Disposition: IV antibiotics. dilaudid CHIEF SUBSTATION OPERATOR for pain control Digitally Signed by NIECY THAPA DO on 01/04/2023 07:25 AM [facility] CincinnatiFcjimwyx33-19-6388 Note Date of Service 01/04/23 Chief Complaint [...] entire meals. She states that the Dilaudid CHIEF SUBSTATION OPERATOR helpswith her pain. She is denying any [...] mL, IV Push, q4h Continuous: (2) HYDROmorphone CHIEF SUBSTATION OPERATOR in 50mL NS 10 mg 10 mg [...] to history of chemoradiation therapy - Dilaudid CHIEF SUBSTATION OPERATOR started overnight History of cervical cancer - [...] resolving with remeron Disposition: IV antibiotics. dilaudid CHIEF SUBSTATION OPERATOR for pain control Digitally Signed by NIECY THAPA DO on 01/04/2023 07:25 AM [facility] CincinnatiEcekauja32-26-4436 Note Date of Service 01/03/2023 Chief Complaint [...] ALANNA SCANLON DO on 01/03/2023 07:57 AM [facility] CincinnatiVhxkrwyz90-59-1489 Consult note Chief complaint history of anxiety [...] CLOTILDE SHAY MD on 01/03/2023 11:53 AM [facility] CincinnatiTebpxzni39-67-2467 Note Date of Service 01/03/2023 Chief Complaint [...] ALANNA SCANLON DO on 01/03/2023 07:57 AM [facility] CincinnatiDsbmblpy97-61-9446 Note IR Procedure Record Summary Primary Physician: VIRAL MANUEL MD Finalized Date/Time: 01/03/23 09:23:36 Pt. Name: LALY NAVAS Austen /Sex: 1990 Female Med Rec #: [id number] Physician: FLIP MARTIN MD Financial #: [id number] Pt. Type: I Room/Bed: [facility]/A Admit/Disch: 01/01/23 16:28:38 - Institution: Allergies identified in patient's electronic medical record at time of printing on 01/03/23 Entry 1 Entry 2 Substance Oranges penicillin Reaction Type Allergy Allergy Last Modified By: JAMAL Scott RN Evan 02/03/21 10/04/22 08:25:47 17:13:24 Case Attendance- IR Entry 1 Entry 2 Entry 3 Case Attendee VIRAL MANUEL MD, Rad Tech Kathy A Patton, RN Gail Phillips Role Performed Primary Surgeon [...] cervical cancer Last Modified By: Patti Ching AddShoppers 01/02/23 15:28:59 Medication Administration- IR Entry 1 [...] than Primary Last Modified By: Patti Ching AddShoppers 01/02/23 15:28:35 Immediate Post Procedure Note - IR Signed By: VIRAL MANUEL MD 01/02/23 15:46 Allergy Information- IR Entry 1 Allergies Reviewed? Yes Allergies Reviewed Patient With Last Modified By: Patti Ching AddShoppers 01/02/23 15:25:06 Radiology Protocols/Time Out- IR Entry [...] team. When Applicable Confirmation correct Team Members BUCHINO, VIRAL MD, side and site marked, Present for Time Out Sam Juinor Relevant images and A, JAMAL Lindsey results are properly E, Patti Ching labeled and Make Up Operator Helper appropriately displayed, Alcohol based prep dry Instrument [...] Radiology - Action Plan Outcomes Met? Yes Accounting Consultant JAMAL Lindsey Completing Procedure Plan Last Modified By: Patti Ching Make Up Operator Helper 01/02/23 15:28:48 Case Comments Had to remove Doc, RN, Techs and patient from room using procedure stop time. Then Edit rad procedure details Fluoro MGY and Total time which I got from IR Equipment/Techs notes so that the document would be complete then finalized it so charges could drop and report could flow to [facility]. can RT- R(CV) Audio Production Manager 01-03-2023 Finalized By: Ana Tipton Document Signatures Signed By: Ana Tipton 01/03/23 09:23 [facility] CincinnatiNvowjmvu23-18-2363 Note Date of Service 01/03/2023 Chief Complaint [...] ALANNA SCANLON DO on 01/03/2023 07:57 AM [facility] CincinnatiQvgifwco78-39-4968 Note ORIGINAL PROCEDURE: Nephrostogram with left percutaneous [...] in the usual sterile fashion. A fluoroscopic scout professional sports image was obtained demonstrating the expected position [...] Sign Date: 01/03/2023 12:42:41 AM Ordering Provider: [facility]03-02-2023 Note Date of Service 01/02/2023 Chief Complaint [...] ALANNA SCANLON DO on 01/02/2023 07:57 AM [facility] CincinnatiHyrfbvcg65-31-5452 Note ORIGINAL PROCEDURE: Nephrostogram with left percutaneous [...] in the usual sterile fashion. A fluoroscopic scout professional sports image was obtained demonstrating the expected position [...] Date: 01/03/2023 12:42:41 AM Ordering Provider: AL[facility] SCANLONSelect [facility] CincinnatiWbzdoabj94-22-6889 Note System generated consult secondary to documented left nephrostomy tube. System intact with Band-Aidover insertion site. Patient states plan is for an exchange today. No needs at this time. Digitally Signed by JAMAL Bach February01/02/2023 11:29 AM [facility] CincinnatiHrqfnyff59-35-7260 Note Date of Service 01/02/2023 Chief Complaint [...] fL (01/02/23 05:14:00) MCH: 33.2 pg High (03/02/23 05:14:00) MCHC: 33.8 G/dL (01/02/23 05:14:00) RDW: [...] ALANNA SCANLON DO on 01/02/2023 07:57 AM [facility] CincinnatiMkhplzby43-05-8205 History and physical note Date of Service [...] chest pain, dizziness, vaginal bleeding, vaginal discharge. 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 Amenorrheic since initiation of Chemoradiation. Denies mammogram ever. Colonoscopy in 2019. Denies history of STDs. Not sexually active. Family History Mother with breast cancer Sister with cervical cancer Grandmother with cervical cancer Aunts with cervical cancer Cousins with cervical cancer ONCOLOGY HISTORY: - 04/04/2020: CT scan abdomen and pelvis. [facility]. Thickened cervical wall with involvementof the [...] underwent for intracavitary brachii therapy applications with axvr-ltfa-rwzq iridium 192afterloading device utilizing a tandem and [...] Start Date End Date Elapsed Days IMRT [facility]UST[facility] Pelvis 6X 180 4,500 04/26/2020 06/02/2020 37 3D PM Bst 18X 180 540 06/05/2020 06/07/2020 2 GENETIC TESTING: - [facility] No reportable somatic or [...] mg/dL (01/01/23 13:18:00) Sodium Level: 139 mEq/L (01/01/23:18:00) Potassium Level: 3.8 mEq/L (01/01/23 13:18:00) Chloride: 112 mEq/L High (01/01/23:18:00) CO2: 25 mEq/L (01/01/23:18:00) Electrolyte Balance: 2 mEq/L Low (01/01/23 13:18:00) [...] Calculate (01/01/23 13:18:00) Alk Phos: 82 U/L (03/01/23 13:18:00) AST/SGOT: 14 U/L (01/01/23 13:18:00) ALT/SGPT: <8 Low (01/01/23 13:18:00) Iron: 35 mcg/dL Low (01/01/23 13:18:00) TIBC: 288 mcg/dL (01/01/23 13:18:00) Iron Sat: 12 % (01/01/23 13:18:00) GFR Non-: >60 (01/01/23:18:00) GFR : >60 (01/01/23 13:18:00) Ferritin: 48 ng/mL (01/01/23:18:00) Folate: 9.92 ng/mL (01/01/23:18:00) Vit. D 25-Hydroxy: 18.6 ng/mL (01/01/23 13:18:00) Vitamin B12 Lvl: 301 pg/mL (01/01/23 13:18:00) U Creatinine: 194.8 mg/dL (01/01/23:18:00) U Protein: 450.4 mg/dL (01/01/23 13:18:00) U [...] ALANNA SCANLON DO on 01/01/2023 06:18 PM [id number] Note Date of Service 01/02/2023 Chief Complaint [...] ALANNA SCANLON DO on 01/02/2023 07:57 AM [facility] CincinnatiDegidhjy01-44-9148 Note ORIGINAL EXAMINATION: CT UROGRAM 01/01/2023 6:17 [...] Sign Date: 01/02/2023 12:04:48 AM Ordering Provider: [facility]03-01-2023 Note ORIGINAL EXAMINATION: CT UROGRAM 01/01/2023 6:17 [...] Sign Date: 01/02/2023 12:04:48 AM Ordering Provider: [facility]03-01-2023 History and physical note Date of [...] chest pain, dizziness, vaginal bleeding, vaginal discharge. 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 Amenorrheic since initiation of Chemoradiation. Denies mammogram ever. Colonoscopy in 2020. Denies history of STDs. Not sexually active. Family History Mother with breast cancer Sister with cervical cancer Grandmother with cervical cancer Aunts with cervical cancer Cousins with cervical cancer ONCOLOGY HISTORY: - 04/04/2020: CT scan abdomen and pelvis. [facility]. Thickened cervical wall with involvementof the [...] underwent for intracavitary brachii therapy applications with evxm-bion-rqig iridium 192 afterloading device utilizing a tandem [...] Start Date End Date Elapsed Days IMRT DEPUTY SHERIFF CUSTODY Pelvis 6X 180 4,500 04/26/2020 06/02/2020 37 3D PM Bst 18X 180 540 06/05/2020 06/07/2020 2 GENETIC TESTING: - [facility] No reportable somatic or [...] 12.9 ratio (01/01/23:18:) Calcium Lvl: 9.9 mg/dL (01/01/23:18:00) Magnesium Lvl: 1.9 mg/dL (01/01/23:18:) Phosphorus: 3.1 mg/dL (01/01/23:18:) Total Protein: 6.9 G/dL (01/01/23:18:00) Albumin Level: 3.8 G/dL (01/01/23:18:) Globulin: 3.1 G/dL (01/01/23:18:) A/G Ratio: 1.2 ratio (01/01/23:18:) Bili Total: 0.2 mg/dL (01/01/23:18) Bili Direct: <0.1 (01/01/23:18:) Bili Indirect: Unable to Calculate (01/01/23:18:) Alk Phos: 82 U/L (01/01/23:18:) AST/SGOT: 14 U/L (01/01/23:18:) ALT/SGPT: <8 Low [...] mg/dL (01/01/23:18:) U Ratio Prot/Creat: 2.3 ratio (01/01/23 13:18:00) [...] ALANNA SCANLON DO on 01/01/2023 06:18 PM [facility]Qmxolqcm06-76-1485 Summary of episode note ANTONELLALALY :1990 Visit Date:01/01/2023 Your Visit Summary Your [...] Folate - 9.92 ng/mL Hepatic Function Panel ([facility]) (01/01/2023) Total Protein - 6.9 G/dL [...] to receive it can visit one of [facility] vaccine clinics. There are many vaccine clinic locations within the [facility]. For locations and available times, please visit www.[email or web address].[email or web address].gov/. It is important to note that some COVID mobile vaccine clinics are held outdoors and may be canceled in rainy or stormy conditions. To learn more about pediatric vaccinations (ages 5-11), we invite you to visit the [facility] webpage. https://www.[employer].org/pages/9929-Tqelv-Ivqseqeftzr-Zgttexpgwd-Vqutz-Dpu stions.htmlTo learn more about the COVID-19 vaccine, we invite you to visit the CDC website for a list of frequently asked questions. https://www.cdc.gov/coronavirus/2019-ncov/vaccines/faq.html [facility] Patient Portal Access Instructions: Stay connected with your healthcare team and access your personal medical information anytime with the [facility] Patient Portal.If you would like a full copy of your medical records, please contact the [facility] Medical Records Department, Friday through Friday between 8a.m. and 4:30p.m. Please follow the directions below to access the portal: 1.Access the email account you provided [facility].2.Look for an invitation email from [facility].3.Open the email and access the invitation link: Accept Invitation to [facility]4.Fill in the required quintero to create your account. Sign into www.Fashion & You with your username and password that you [...] you will allow to register on the [facility] Patient Portal for access to your information. You can also access the [facility] Patient Portal on the My Computer Works. Simply click on Health Records under [employer] and then click on the [employer] logo. HOW TO SAFELY DISPOSE OF PRESCRIPTION [...] Call your local pharmacy or go to http://Solidarium.TXCOM/3N4Ks6f to find one close to you.3.Make use of household items: Use cat litter or old coffee grounds to dispose medications if other options arenot available. Mix your drugs with these household products, seal them in an airtight container andthrow it into the garbage. Call [facility]: [phone] to be sure your drugs can be [...] aware that I should contact my doctor. Patient/Physical Therapy Aide Signature: Date/Time: Relationship to Patient: Witness Name/Signature: Date/Time: [facility]Ewxkgaql05-72-7021 Evaluation + Plan noteExtracted from: Title:History and [...] Date:01/30/2023 02:10:00 PM Scheduled Provider:FLIP MARTIN MD Location:[facility] Appointment Type:SO OV Follow Up Appointment [...] IR Neph Cath-Neph Ureter W/Guide Left 02/17/23 [facility] 01-13-2023 Note ORIGINAL PROCEDURE: INTRODUCTION-NEPHRO TUBE MODERATE CONSCIOUS SEDATION 11/15/2022 HISTORY: ORDERING SYSTEM PROVIDED HISTORY: Reason for Exam: CERVICAL CA, LAST CHANGE 10/02/22 TECHNIQUE: Fluoroscopy CONTRAST: 8 cc Omnipaque 300 SEDATION: Moderate sedation was ordered and supervised by the attending with physician yvyz-dr-bgxl monitoring. Medications were provided and recorded by Radiology nurses. FLUOROSCOPY DOSE AND TYPE OR TIME AND EXPOSURES: Fluoroscopy: Time: 23.8 minutes. Air kerma: 92.0 mGy Number of images: 15 DESCRIPTION OF PROCEDURE: Informed consent was obtained after a detailed explanation of the procedure including risks, benefits, and alternatives. Eldred protocol was observed. Sterile gowns, masks, hats [...] to the urinary bladder. 9 and 10 Mongolian vascular sheath were guided over the catheter [...] was then readily removed. A new 8 Mongolian 24 cm nephroureteral stent was guided into [...] balloon. 3. Placement of a new 8 Mongolian 24 cm nephroureteral stent in the left renal collecting system Interpreted by: Janet Florez Preliminary Report By: Janet Florez Electronically signed By Janet Florez Dictated Date: 11/15/2022 4:52:51 PM Prelim Date: 11/15/2022 5:22:54 PM Sign Date: 11/15/2022 5:22:54 PM Ordering Provider: BRITTNI LU [facility]Jgcuapmh46-29-3760 Hospital Discharge instructions Patient Education 11/15/2022 13:39:47 Radiology- Nephrostomy Tube Insertion (CUSTOM) [place] Nephrostomy Tube Exchange Discharge Instructions Interventional Radiology [facility] Imaging Services [address] [place] [address] The procedure that you had done today [...] mayexperience the feeling of needing to urinate. Amry-jyx-tnxeksp pain medication should be used for pain [...] instruction below: 8:00 am- 5:00 pm call [phone] After 5:00 pm call [phone] After 24 hours, contact the physician who [...] until you are awake and alert. Take wjla-awr-xbusddo and prescription medicines only as told by [...] 08/10/2014 Document Revised: 10/02/2018 Document Reviewed: 02/08/2017 What the Trend Patient Education [employer]. Follow Up Care 11/12/2022 14:00:32 With:BRITTNI LU Address: [address] [place] [address] [place] [address]- [phone] When: Unknown Comments:Follow-up as scheduled With:Call Physician Referral Address:Unknown When: Unknown [facility] 01-13-2023 Evaluation + Plan noteExtracted from: Title:IR [...] Ready to change: Yes. Physical Exam Vitals: Zmcksfehmks11.8 (09:52) Systolic Blood PressureNo result Diastolic Blood PressureNo result Pulse69 (09:52) XoI433 (09:52) Respiratory Rate14 (09:52) General: Alert, cooperative. [...] Date:11/20/2022 09:00:00 AM Scheduled Provider:FLIP MARTIN MD Location:[facility] Appointment Type:SO OV Appointment Date:01/01/2023 11:30:00 AM Scheduled Provider:FLIP MARTIN MD Location:[facility] Appointment Type: OV Follow Up Diagnostic [...] IR Neph Cath-Neph Ureter W/Guide Left 06/02/23 [facility] 01-13-2023 Summary of episode note Discharge Instructions Thank you for allowing [facility] to assist you with your healthcare needs. The following is importantdischarge information regarding your hospital visit. Your Care Team FLIP MARTIN MD What to do next Scheduled Follow-Up Appointments Appointment Type When With Where Contact InformationSO OV 11/20/2022 09:00 AM FLIP CORRALES MD Gynecologic Oncology [address] [place] [address] SO OV Follow Up 01/01/2023 11:30 AM FLIP CORRALES MD Gynecologic Oncology [address] [place] [phone] Follow Up Appointments Follow Up with BRITTNI LU When Why: Follow-up as scheduled Where: [address] [place] [address] [place] [phone] Follow Up with Call Physician Referral When [...] medication providers or retail pharmacies. Education Materials [place] Nephrostomy Tube Exchange Discharge Instructions Interventional Radiology [facility] Imaging Services [address] [place] [id number] The procedure that you had done today [...] mayexperience the feeling of needing to urinate. Cdpl-xzu-krebvod pain medication should be used for pain [...] instruction below: 8:00 am- 5:00 pm call [phone] After 5:00 pm call [phone] After 24 hours, contact the physician who [...] until you are awake and alert. Take vgma-nth-yxvsanx and prescription medicines only as told by [...] 08/10/2014 Document Revised: 10/02/2018 Document Reviewed: 02/08/2017 What the Trend Patient Education 2020 What [employer] Trend Inc. Additional Information VACCINATE! IT SAVES LIVES! Members of the community who have not yet received the COVID-19 vaccine and would like to receive it can visit one of [facility] vaccine clinics. There are many vaccine clinic locations within the [facility]. For locations and available times, please visit https://[email or web address]/. It is important to note that some COVID mobile vaccine clinics are held outdoors and may be canceled in rainy or stormy conditions. To learn more about pediatric vaccinations (ages 5-11), we invite you to visit the [facility] webpage. https://www.[email or web address].org/pages/9086-Sshbb-Fbcgcvtcbfw-Onyheeilmw-Iqxdd-Fsl stions.htmlTo learn more about the COVID-19 vaccine, we invite you to visit the [facility] website for a list of frequently asked questions. [email or web address] _Asked-Questions.pdf [facility] Patient Portal Access Instructions: Stay connected with your healthcare team and access your personal medical information anytime with the [facility] Patient Portal.If you would like a full copy of your medical records, please contact the [facility] Medical Records Department, Friday through Friday between 8a.m. and 4:30p.m. Please follow the directions below to access the portal: 1.Access the email account you provided upon [facility].2.Look for an invitation email from [facility].3.Open the email and access the invitation link: Accept Invitation to [facility]4.Fill in the required quintero to create your account. Sign into www.Fashion & You with your username and password that you [...] you will allow to register on the [facility] Patient Portal for access to your information. You can also access the [facility] Patient Portal on the Scripted joya. Simply click on Health Records under [employer] and then click on the [facility] logo. HOW TO SAFELY DISPOSE OF PRESCRIPTION [...] Call your local pharmacy or go to http://bit.TXCOM/0H6Qz7m to find one close to you.3.Make use of household items: Use cat litter or old coffee grounds to dispose medications if other options arenot available. Mix your drugs with these household products, seal them in an airtight container andthrow it into the garbage. Call [facility]: [phone] to be sure your drugs can be [...] aware that I should contact my doctor. Patient/Physical Therapy Aide Signature: Date/Time: Relationship to Patient: Witness Name/Signature: Date/Time: [facility]ag[facility]-1428 Note ORIGINAL PROCEDURE: INTRODUCTION-NEPHRO TUBE MODERATE CONSCIOUS SEDATION 11/15/2022 HISTORY: ORDERING SYSTEM PROVIDED HISTORY: Reason for Exam: CERVICAL CA, LAST CHANGE 10/02/22 TECHNIQUE: Fluoroscopy CONTRAST: 8 cc Omnipaque 300 SEDATION: Moderate sedation was ordered and supervised by the attending with physician frhn-sl-rbdu monitoring. Medications were provided and recorded by Radiology nurses. FLUOROSCOPY DOSE AND TYPE OR TIME AND EXPOSURES: Fluoroscopy: Time: 23.8 minutes. Air kerma: 92.0 mGy Number of images: 15 DESCRIPTION OF PROCEDURE: Informed consent was obtained after a detailed explanation of the procedure including risks, benefits, and alternatives. Eldred protocol was observed. Sterile gowns, masks, hats [...] to the urinary bladder. 9 and 10 Mongolian vascular sheath were guided over the catheter [...] was then readily removed. A new 8 Mongolian 24 cm nephroureteral stent was guided into [...] balloon. 3. Placement of a new 8 Mongolian 24 cm nephroureteral stent in the left renal collecting system Interpreted by: Janet Florez Preliminary Report By: Janet Florez Electronically signed By Janet Florez Dictated Date: 11/15/2022 4:52:51 PM Prelim Date: 11/15/2022 5:22:54 PM Sign Date: 11/15/2022 5:22:54 PM Ordering Provider: [facility]01-13-2023 Note IR Procedure Record Summary Primary Physician: Finalized Date/Time: 11/15/22 12:56:45 Pt. Name: LALY NAVAS Austen Lambert/Sex: 1990 Female Med Rec #: [id number] Physician: Financial #: [id number] Pt. Type: O Room/Bed: / Admit/Disch: 11/15/22 09:39:00 - Institution: Allergies identified in patient's electronic medical record at time of printing on 11/15/22 Entry 1 Entry 2 Substance Oranges penicillin Reaction Type Allergy Allergy Last Modified By: JAMAL Scott RN Evan 02/03/21 10/04/22 08:25:47 17:13:24 Case Attendance- IR Entry 1 Entry 2 Entry 3 Case Attendee GAUTAM, JANET Lindsey, RN Padmini Bocanegra Make Up Operator Helper Role Performed Radiologist Procedure Procedure Nurse Scrub [...] 4 X 5, Gauze Technologist Notes 8.5F Crawford sponge 4 X 4 Nephroureterostomy stent LT [...] Metz MD Back from: Last Modified By: Sandi AddShoppers Devika Junior, AddShoppers JAMAL Covarrubias 11/15/22 11:46:04 A 11/15/22 11:46:04 11/15/22 11:59:40 [...] Read GAUTAM, JANET Metz MD GAUTAM, JANET TUTTLEN, JANET Metz MD [...] Record With Last Modified By: Sam Junior 11/15/22 11:28:34 Radiology Protocols/Time Out- IR Entry [...] [facility] Rad results are properly Tech, Sandi Make Up Operator Helper labeled and Devika A appropriately displayed, Confirm/obtain preop antibiotic order., Double verification of sterility indicators complete Instrument Sterility Team Members JANET FLOREZ MD, Verifying Sterility JAMAL Lindsey, Dominick Fairchildn R Make Up Operator Helper, Bollon, Make Up Operator Helper Devika A Procedure IR Neph Cath-Neph Ureter W/Guide Left SN Last Modified By: Sandi Make Up Operator Helper Devika A 11/15/22 11:31:48 Skin Prep- IR Entry 1 Procedure IR Neph Cath-Neph Ureter W/Guide Left SN Skin Prep Prep Area Back Side Left By Padmini [facility]child Rad Prep Agents Betadine Solution Tech Hair Removal Method N/A Last Modified By: Sandi Make Up Operator Helper Devika A 11/15/22 11:32:20 Patient Positioning- IR Entry 1 Procedure IR Neph Cath-Neph Body Position OP Prone Ureter W/Guide Left SN Feet Uncrossed? Yes Pressure Points Yes Checked Last Modified By: Sandi Make Up Operator Helper Devika A 11/15/22 11:32:34 Radiology Procedure Plan [...] Radiology - Action Plan Outcomes Met? Yes Accounting Consultant JAMAL Lindsey, Completing Sam Junior Procedure Plan [...] Signatures Signed By: Karolina Prater 11/15/22 12:56 [facility]2902 Discharge summary Date of Service 11/15/2022 Discharge [...] JANET FLOREZ MD on 11/15/2022 12:51 PM [facility]xudzsej38-65-6567 Interventional radiology Consult note INTERVENTIONAL RADIOLOGY POST PROCEDURE NOTE DATE: 11/15/2022 12:39:24 NAME: LAYL NAVAS Pre-Procedure Diagnosis: _Bladder cancer Post Procedure Diagnosis: Same. Polisher Dial: Dr. Caio Florez Procedure: _Nu stent exchange [...] Boyce MD Interventional Radiology IR dept: x [phone] Available on Scodixt Digitally Signed by JANET FLOREZ MD on 11/15/2022 12:40 PM [facility] CincinnatiHwzxipbq39-84-3760 Note Interventional Radiology Focused Preprocedure History/Physical Reason [...] Ready to change: Yes. Physical Exam Vitals: Ypshhgcwids10.8 (09:52) Systolic Blood PressureNo result Diastolic Blood PressureNo result Pulse69 (09:52) ZcP743 (09:52) Respiratory Rate14 (09:52) General: Alert, cooperative. [...] JANET FLOREZ MD on 11/15/2022 01:56 PM [facility] CincinnatiFbuxeeop80-53-1387 Hospital Discharge instructions Patient Education 10/08/2022 16:44:11 Pyelonephritis, Adult, Wtdj-mg-Mnub Pyelonephritis, Adult Pyelonephritis is an infection that [...] even if youstart to feel better. Take avon-gry-uyiuocm and prescription medicines only as told by [...] 11/27/2005 Document Revised: 08/24/2019 Document Reviewed: 08/24/2019 What the Trend Patient Education 2020 What the Trend Inc. Follow Up Care 09/30/2022 10:05:59 With:[facility] Address: When: Unknown Comments:[facility] to provide iv pole, tubing, and medication for iv antibiotics With:FLIP MARTIN Address: [address] [place] [address] [place] [address] [facility] (1) When: Unknown Comments:Please call the office to schedule a follow up appointment within 2 weeks With:[facility] Address:Unknown When:10/11/2022 09:00:00 Comments:Outpatient port care dressing change and labs [facility] 12-06-2022 Note Discharge Instructions Thank you for allowing [facility] to assist you with your healthcare needs. The following is importantdischarge information regarding your hospital visit. Your Care Team FLIP MARTIN MD Your Diagnosis Pyelonephritis Cervical cancer Obstructive uropathy Asthma Decreased appetite Tobacco use Anxiety Flank pain What to do next Scheduled Follow-Up Appointments Appointment Type When With Where Contact InformationSO OV Follow Up 01/01/2023 11:30 AM EST FLIP MARTIN MD [facility] [address] [place] [phone] Follow Up Appointments Follow Up with [facility] When 10/11/2022 09:00 AM EST Why: Outpatient port care dressing change and labs Follow Up with [facility] When Why: [facility] to provide iv pole, tubing, and medication for iv antibiotics Where: Follow Up with FLIP MARTIN When Why: Please call the office to schedule a follow up appointment within 2 weeks Where: [address] [place] [address] [place] [address]- [facility] (1) The Following Activity and Diet Have [...] needed for constipation Refills: [address] [facility] New dronabinol (Marinol 2.5 mg oral capsule) 1 cap by mouth Two (2) times a day Cervical cancer Decreased appetite Duration: [address] [facility] New gabapentin (gabapentin 300 mg oral capsule) 1 cap by mouth Daily at bedtime Cervical cancer Duration: 30 Days Refills: [address] [facility] New meropenem (meropenem 1000 mg intravenous injection) 1,000 Milligram IV Piggyback Every 8 hours New morphine (MS Contin 30 mg/ 8-12 hrs oral tablet, extended release) 1 tab(s) by mouth Every 12 hours Cervical cancer Duration: [address] [facility] New oxyCODONE (oxyCODONE 10 mg oral tablet ( IMMEDIATE release )) 1 tab(s) by mouth Every 4 hours as needed for abdominal discomfort Cervical cancer Duration: [address] [facility] Unchanged acetaminophen (Tylenol 325 mg oral [...] prior to taking pain medication Pickup at [facility] Unchanged sodium chloride (Normal Saline Flush 0.9% injectable solution) 10 Milliliter IR Drain Every day Pickup at [facility] Information [facility]: [address] [place] [phone] [facility]: [address] [place] [phone] What How Much When Why Comments Stop [...] even if youstart to feel better. Take qbnd-tis-jbvijub and prescription medicines only as told by [...] Document Reviewed: 08/24/2019 Elsevier Patient Education 2020 What the Trend Inc. Additional Information VACCINATE! IT SAVES LIVES! Members of the community who have not yet received the COVID-19 vaccine and would like to receive it can visit one of [facility] vaccine clinics. There are many vaccine clinic locations within the [facility]. For locations and available times, please visit https://[email or web address].gov/. It is important to note that some COVID mobile vaccine clinics are held outdoors and may be canceled in rainy or stormy conditions. To learn more about pediatric vaccinations (ages 5-11), we invite you to visit the [facility] webpage. https://www.[email or web address].org/pages/2629-Ryzbt-Bbeyxnopgxy-Fnauwucvfq-Jklji-Zmw stions.htmlTo learn more about the COVID-19 vaccine, we invite you to visit the [facility] website for a list of frequently asked questions. [email or web address]-[email or web address]-[email or web address]-[email or web address] _Asked-Questions.pdf [facility] Patient Portal Access Instructions: Stay connected with your healthcare team and access your personal medical information anytime with the [facility] Patient Portal.If you would like a full copy of your medical records, please contact the [facility] Medical Records Department, Friday through Friday between 8a.m. and 4:30p.m. Please follow the directions below to access the portal: 1.Access the email account you [facility].2.Look for an invitation email from [facility].3.Open the email and access the invitation link: Accept Invitation to [facility]4.Fill in the required quintero to create your account. Sign into www.Fashion & You with your username and password that you [...] you will allow to register on the [facility] Patient Portal for access to your information. You can also access the [facility] Patient Portal on the [employer] joya. Simply click on Health Records under [employer] and then click on the [employer] logo. HOW TO SAFELY DISPOSE OF PRESCRIPTION [...] Call your local pharmacy or go to http://Solidarium.TXCOM/1G5Nv8f to find one close to you.3.Make use of household items: Use cat litter or old coffee grounds to dispose medications if other options arenot available. Mix your drugs with these household products, seal them in an airtight container andthrow it into the garbage. Call [facility]: [phone] to be sure your drugs can be [...] COPY. Signatures Patient Education Materials Pyelonephritis, Adult, Iyka-ti-Xjlb Medication Leaflets My discharge plan and instructions have been reviewed and explained to me and I,LALY NAVAS understand my current condition and have read and understand these discharge instructions. I have received a written copy of the plan/instructions. If I have questions, I am aware that I should contact my doctor. Patient/Physical Therapy Aide Signature: Date/Time: Relationship to Patient: Witness Name/Signature: Date/Time: [facility]byiaod18-29-3589 Note Date of Service 10/08/22 Chief Complaint [...] 1. Successful placement of a new 8 Mongolian 26 cm left nephroureteral stent. 2. Left [...] DILLAN KUMAR MD on 10/08/2022 05:52 AM [facility] Cincinnati[facility]ofgjuwe36-53-2983 Note Date of Service 10/08/22 Chief Complaint [...] 1. Successful placement of a new 8 Mongolian 26 cm left nephroureteral stent. 2. Left [...] DILLAN KUMAR MD on 10/08/2022 05:52 AM [facility] CincinnatiFvwfbmle51-72-9891 Note Date of Service 10/08/22 Chief Complaint [...] 1. Successful placement of a new 8 Mongolian 26 cm left nephroureteral stent. 2. Left [...] DILLAN KUMAR MD on 10/08/2022 05:52 AM [facility] CincinnatiRmkuiast46-27-1619 Nurse Progress note Tried explaining to patient [...] by JAMAL Ferrer on 10/08/2022 12:32 AM [facility] CincinnatiXfeonhnr65-44-3601 Note Date of Service 10/07/22 Chief Complaint [...] 1. Successful placement of a new 8 Mongolian 26 cm left nephroureteral stent. 2. Left [...] -Renal function Left:right, 27:73%. -Current Pain management: CHIEF SUBSTATION OPERATOR, 15 mg MS Contin BID, Gabapentin 300 [...] DILLAN KUMAR MD on 10/07/2022 06:01 AM [facility] Cincinnati[facility]jwozxtq[facility] Note Date of Service 10/07/22 Chief Complaint [...] 1. Successful placement of a new 8 Mongolian 26 cm left nephroureteral stent. 2. Left [...] -Renal function Left:right, 27:73%. -Current Pain management: CHIEF SUBSTATION OPERATOR, 15 mg MS Contin BID, Gabapentin 300 [...] DILLAN KUMAR MD on 10/07/2022 06:01 AM [facility] CincinnatiWzjimqlb60-55-7941 Note Date of Service 10/06/22 Chief Complaint [...] mL, IR Drain, q8h Continuous: (1) HYDROmorphone CHIEF SUBSTATION OPERATOR in 50mL NS 10 mg 10 mg [...] 1. Successful placement of a new 8 Mongolian 26 cm left nephroureteral stent. 2. Left [...] -Renal function Left:right, 27:73%. -Current Pain management: CHIEF SUBSTATION OPERATOR, 15 mg MS Contin BID, Gabapentin 300 [...] DILLAN KUMAR MD on 10/06/2022 08:18 AM [facility] CincinnatiShdztqkw31-16-5796 Note Date of Service 10/06/22 Chief Complaint [...] mL, IR Drain, q8h Continuous: (1) HYDROmorphone CHIEF SUBSTATION OPERATOR in 50mL NS 10 mg 10 mg [...] 1. Successful placement of a new 8 Mongolian 26 cm left nephroureteral stent. 2. Left [...] -Renal function Left:right, 27:73%. -Current Pain management: CHIEF SUBSTATION OPERATOR, 15 mg MS Contin BID, Gabapentin 300 [...] DILLAN KUMAR MD on 10/06/2022 08:18 AM [facility] CincinnatiEimruzhc03-26-6974 Note Date of Service 10/06/22 Chief Complaint [...] mL, IR Drain, q8h Continuous: (1) HYDROmorphone CHIEF SUBSTATION OPERATOR in 50mL NS 10 mg 10 mg [...] 1. Successful placement of a new 8 Mongolian 26 cm left nephroureteral stent. 2. Left [...] -Renal function Left:right, 27:73%. -Current Pain management: CHIEF SUBSTATION OPERATOR, 15 mg MS Contin BID, Gabapentin 300 [...] DILLAN KUMAR MD on 10/06/2022 08:18 AM [facility] CincinnatiBchyjzju73-67-5933 Note ORIGINAL EXAMINATION: CT UROGRAM 10/05/2022 2:05 [...] pathologically enlarged left para-aortic lymph nodes seen. Physical Therapy Aide lymph node is seen on series 2, [...] Sign Date: 10/05/2022 9:17:10 PM Ordering Provider: [facility]12-03-2022 Note ORIGINAL EXAMINATION: CT UROGRAM 10/05/2022 [...] pathologically enlarged left para-aortic lymph nodes seen. Physical Therapy Aide lymph node is seen on series 2, [...] Sign Date: 10/05/2022 9:17:10 PM Ordering Provider: [facility]12-03-2022 Note Date of Service 10/05/22 [...] mL, IR Drain, q8h Continuous: (1) HYDROmorphone CHIEF SUBSTATION OPERATOR in 50mL NS 10 mg 10 mg [...] 1. Successful placement of a new 8 Mongolian 26 cm left nephroureteral stent. 2. Left [...] with Dr. Martin. -Renal function Left:right, 27:73%. -CHIEF SUBSTATION OPERATOR continued for now, consider d/c to oral [...] DILLAN KUMAR MD on 10/05/2022 08:33 AM [facility] CincinnatiMflenhuq00-46-7435 Note Date of Service 10/05/22 Chief Complaint [...] mL, IR Drain, q8h Continuous: (1) HYDROmorphone CHIEF SUBSTATION OPERATOR in 50mL NS 10 mg 10 mg [...] 1. Successful placement of a new 8 Mongolian 26 cm left nephroureteral stent. 2. Left [...] with Dr. Martin. -Renal function Left:right, 27:73%. -CHIEF SUBSTATION OPERATOR continued for now, consider d/c to oral [...] DILLAN KUMAR MD on 10/05/2022 08:33 AM [facility] [id number] Note Date of Service 10/04/22 Chief Complaint [...] mL, IR Drain, q8h Continuous: (1) HYDROmorphone CHIEF SUBSTATION OPERATOR in 50mL NS 10 mg 10 mg [...] 1. Successful placement of a new 8 Mongolian 26 cm left nephroureteral stent. 2. Left [...] from her pyelonephritis. We will stop the CHIEF SUBSTATION OPERATOR and transition to oral medications. Will discuss [...] DILLAN KUMAR MD on 10/04/2022 06:55 AM [facility] CincinnatiMunzsgcr34-10-1661 Infectious disease Progress note Date of Service 10/04/2022 Objective Vitals and Measurements T: 36.7 C (Oral) TMIN: 36.7 C (Oral) TMAX: 36.9 C (Oral) HR: 88 RR: 18 BP: 108/73 SpO2: 98% Physical Exam Chart reviewed, patient examined. Patient is alert and oriented x3, tearful and a bit anxious but FSC, resting in bed on Dilaudid CHIEF SUBSTATION OPERATOR pump. Dilaudid PCR syringe is empty, RN [...] Patient reports she is very unhappy with DEPUTY SHERIFF CUSTODY resident who assessed her this morning. Requesting to speak with Dr Martin. chuck boner notified. SGOT 12, SGPT <7 FOCUSED ASSESSMENT: [...] mL, IR Drain, q8h Continuous: (1) HYDROmorphone CHIEF SUBSTATION OPERATOR in 50mL NS 10 mg 10 mg [...] Emili Clark RN on 10/04/2022 09:27 AM [facility] CincinnatiCewmyzmb84-08-4766 Infectious disease Progress note Date of Service 10/04/2022 Objective Vitals and Measurements T: 36.7 C (Oral) TMIN: 36.7 C (Oral) TMAX: 36.9 C (Oral) HR: 88 RR: 18 BP: 108/73 SpO2: 98% Physical Exam Chart reviewed, patient examined. Patient is alert and oriented x3, tearful and a bit anxious but FSC, resting in bed on Dilaudid CHIEF SUBSTATION OPERATOR pump. Dilaudid PCR syringe is empty, RN [...] Patient reports she is very unhappy with DEPUTY SHERIFF CUSTODY resident who assessed her this morning. Requesting to speak with Dr Martin. chuck boner notified. SGOT 12, SGPT <7 FOCUSED ASSESSMENT: [...] mL, IR Drain, q8h Continuous: (1) HYDROmorphone CHIEF SUBSTATION OPERATOR in 50mL NS 10 mg 10 mg [...] Emili Clark RN on 10/04/2022 09:27 AM [facility] [id number] Note Date of Service 10/04/22 Chief Complaint [...] mL, IR Drain, q8h Continuous: (1) HYDROmorphone CHIEF SUBSTATION OPERATOR in 50mL NS 10 mg 10 mg [...] 1. Successful placement of a new 8 Mongolian 26 cm left nephroureteral stent. 2. Left [...] from her pyelonephritis. We will stop the CHIEF SUBSTATION OPERATOR and transition to oral medications. Will discuss [...] DILLAN KUMAR MD on 10/04/2022 06:55 AM [facility] CincinnatiEvnzuhos31-91-9606 Note Date of Service 10/03/2022 Chief Complaint Abdominal pain Difficulty urinating Subjective Patient reports her acute pain has improved with the Dilaudid CHIEF SUBSTATION OPERATOR however her chronic pain at the nephrostomy [...] mL, IR Drain, q8h Continuous: (1) HYDROmorphone CHIEF SUBSTATION OPERATOR in 50mL NS 10 mg 10 mg [...] 1. Successful placement of a new 8 Mongolian 26 cm left nephroureteral stent. 2. Left [...] for NM Kidney scan. Will discuss discontinuing CHIEF SUBSTATION OPERATOR Dilaudid with Dr. Hilliard today. Digitally Signed by PRIMO CANELA MD on 10/03/2022 06:57 AM [facility] CincinnatiQdwadzpv07-40-2739 Note ORIGINAL EXAMINATION: NUCLEAR MEDICINE RENAL SCAN10/03/2022 [...] Date: 10/03/2022 2:27:51 PM Ordering Provider: [facility]12-01-2022 Note ORIGINAL EXAMINATION: NUCLEAR MEDICINE RENAL SCAN10/03/2022 [...] Sign Date: 10/03/2022 2:27:51 PM Ordering Provider: [facility]12-01-2022 Infectious disease Progress note Date of Service 10/03/2022 Objective Vitals and Measurements T: 36.7 C (Oral) TMIN: 36.7 C (Oral) TMAX: 36.8 C (Oral) HR: 96 RR: 16 BP: 106/73 SpO2: 97% Physical Exam Chart reviewed, patient examined. Patient is alert and oriented x3, resting in bed on Dilaudid CHIEF SUBSTATION OPERATOR pump. No c/o VD. Reports improving nausea. [...] mL, IR Drain, q8h Continuous: (1) HYDROmorphone CHIEF SUBSTATION OPERATOR in 50mL NS 10 mg 10 mg [...] (s): 0.64 Imaging Results and Diagnostics 10/03 [place] Kidney Scan Pending completion and results Problem List History of cervical cancer status post chemoradiation Left nephrostomy tube in place, last exchanged 08/14/2022 Acute pyelonephritis Complicated UTI Chest port in place Digitally Signed by Emili Clark RN on 10/03/2022 08:58 AM [id number] Consult note Chief complaint anxiety History of present illness 31-year-old female admitted with a history of cervical cancer status post chemoradiation as well as a history of obstructive uropathy states longstanding anxiety. I evaluated this patient in the presence of social work manager Tasha Wallace. Patient states that she does [...] CLOTILDE SHAY MD on 10/03/2022 10:14 AM [id number] Note IR Procedure Record Summary Primary Physician: JANET FLOREZ MD Finalized Date/Time: 10/03/22 09:10:23 Pt. Name: LALY NAVAS /Sex: 1990 Female Med Rec #: [id number] Physician: FLIP MARTIN MD Financial #: [id number] Pt. Type: I Room/Bed: [facility]/A Admit/Disch: 09/30/22 10:04:48 - Institution: Allergies identified in patient's electronic medical record at time of printing on 10/03/22 Entry 1 Substance penicillin Reaction Type Allergy Last Modified By: JAMAL Samuel 02/03/21 17:13:24 Case Attendance- IR Entry 1 Entry 2 Entry 3 Case Attendee [facility]Z [facility] Make Up Operator Helper Role Performed Primary Surgeon Scrub Technologist Procedure Nurse Details Time In 10/02/22 14:24:00 10/02/22 14:24:00 10/02/22 14:24:00 Time Out 10/02/22 14:50:00 10/02/22 14:55:00 10/02/22 14:55:00 Procedure/Preference IR Neph Cath-Neph IR Neph Cath-Neph IR Neph Cath-Neph Card Ureter W/Guide Left SN Ureter W/Guide Left SN Ureter W/Guide Left SN Last Modified By: Padmini Fairchild Megan R Rad Fierstos, Megan R Rad Tech 10/02/22 14:53:31 Tech 10/02/22 14:53:31 Tech 10/02/22 14:53:31 Entry 4 Case Attendee Padmini Fairchild Tech Role Performed Circulating Technologist Details Time In 10/02/22 14:24:00 Time Out 10/02/22 14:55:00 Procedure/Preference IR Neph Cath-Neph Card Ureter W/Guide Left SN Last Modified By: Padmini Fairchild Make Up Operator Helper 10/02/22 14:53:31 Radiology Procedures- IR Entry 1 Procedure/Preference IR Neph Cath-Neph Actual Procedure IR Neph-ureter w guide Card Ureter W/Guide Left SN left SN Primary Procedure Yes Primary Surgeon JANET FLOREZ MD Anesthesia/Sedation Local, IV Sedation Type Additional Procedure Times Start 10/02/22 14:30:00 Stop 10/02/22 14:50:00 Specialty Service SN Radiology Procedure EBL 1 mL Last Modified By: Padmini Fairchild Make Up Operator Helper 10/02/22 15:00:02 Radiology Procedure Details - IR [...] cervical cancer Last Modified By: Padmini Fairchild Make Up Operator Helper 10/02/22 14:31:54 Medication Administration- IR Entry 1 [...] than Primary Last Modified By: Padmini Fairchild AddShoppers 10/02/22 14:31:36 Immediate Post Procedure Note - IR Signed By: JANET FLOREZ MD 10/02/22 14:51 Allergy Information- IR Entry 1 Allergies Reviewed? Yes Allergies Reviewed Medical Record With Last Modified By: Padmini Fairchild AddShoppers 10/02/22 14:25:11 Radiology Protocols/Time Out- IR Entry [...] Time Out Patti Ching Relevant images and Make Up Operator Helper, Marisa Gastelum results are properly RN, Padmini Fairchild labeled and Make Up Operator Helper appropriately displayed, Alcohol based prep dry Instrument Sterility Team Members Patti Ching Verifying Sterility Make Up Operator Helper Procedure IR Neph Cath-Neph Ureter W/Guide Left SN Last Modified By: Padmini Fairchild Make Up Operator Helper 10/02/22 14:30:43 Skin Prep- IR Entry 1 Procedure IR Neph Cath-Neph Ureter W/Guide Left SN Skin Prep Prep Area Flank Side Left By Patti Ching Prep Agents Betadine Scrub Make Up Operator Helper Hair Removal Method N/A Last Modified By: Padmini Fairchild Make Up Operator Helper 10/02/22 14:29:37 Patient Positioning- IR Entry 1 Procedure IR Neph Cath-Neph Body Position OP Prone Ureter W/Guide Left SN Feet Uncrossed? Yes Pressure Points n/a Checked Last Modified By: Padmini Fairchild Make Up Operator Helper 10/02/22 14:29:49 Radiology Procedure Plan - IR [...] Radiology - Action Plan Outcomes Met? Yes Accounting Consultant Marisa Gastelum RN Completing Procedure Plan Last Modified By: Padmini Fairchild Make Up Operator Helper 10/02/22 14:31:10 Case Comments Finalized By: Ana Tipton Document Signatures Signed By: Padmini Fairchild Make Up Operator Helper 10/02/22 15:02 Ana Tipton 10/03/22 09:10 [id number] Infectious disease Progress note Date of Service 10/03/2022 Objective Vitals and Measurements T: 36.7 C (Oral) TMIN: 36.7 C (Oral) TMAX: 36.8 C (Oral) HR: 96 RR: 16 BP: 106/73 SpO2: 97% Physical Exam Chart reviewed, patient examined. Patient is alert and oriented x3, resting in bed on Dilaudid CHIEF SUBSTATION OPERATOR pump. No c/o VD. Reports improving nausea. [...] mL, IR Drain, q8h Continuous: (1) HYDROmorphone CHIEF SUBSTATION OPERATOR in 50mL NS 10 mg 10 mg [...] (s): 0.64 Imaging Results and Diagnostics 10/03 DE Kidney Scan Pending completion and results Problem List History of cervical cancer status post chemoradiation Left nephrostomy tube in place, last exchanged 08/14/2022 Acute pyelonephritis Complicated UTI Chest port in place Digitally Signed by Emili Clark RN on 10/03/2022 08:58 AM [id number] Note Date of Service 10/03/2022 Chief Complaint Abdominal pain Difficulty urinating Subjective Patient reports her acute pain has improved with the Dilaudid CHIEF SUBSTATION OPERATOR however her chronic pain at the nephrostomy [...] mL, IR Drain, q8h Continuous: (1) HYDROmorphone CHIEF SUBSTATION OPERATOR in 50mL NS 10 mg 10 mg [...] 1. Successful placement of a new 8 Mongolian 26 cm left nephroureteral stent. 2. Left [...] for NM Kidney scan. Will discuss discontinuing CHIEF SUBSTATION OPERATOR Dilaudid with Dr. Hilliard today. Digitally Signed by PRIMO CANELA MD on 10/03/2022 06:57 AM [id number] Note ORIGINAL PROCEDURE: INTRODUCTION-NEPHRO TUBE MODERATE CONSCIOUS [...] the nurse. The patient has an active CHIEF SUBSTATION OPERATOR pump present. Very generous lidocaine was utilized FLUOROSCOPY DOSE AND TYPE OR TIME AND EXPOSURES: Fluoroscopy time 0.8min Total DLP: 5 mGy Number of images: 2 DESCRIPTION OF PROCEDURE: Informed consent was obtained after a detailed explanation of the procedure including risks, benefits, and alternatives. Eldred protocol was observed. Sterile gowns, masks, hats [...] catheter was readily removed. A new 8 Mongolian 26 cm nephroureteral stent was placed. Its [...] 1. Successful placement of a new 8 Mongolian 26 cm left nephroureteral stent. 2. Left nephrostogram and antegrade pyelography Interpreted by: Janet Florez Preliminary Report By: Janet Florez Electronically signed By Janet Florez Dictated Date: 10/02/2022 7:44:31 PM Prelim Date: 10/02/2022 7:49:25 PM Sign Date: 10/02/2022 7:49:25 PM Ordering Provider: [facility]11-30-2022 Note Date of Service 10/02/2022 Chief Complaint Abdominal pain Difficulty urinating Subjective Patient seen and examined. She is upset this morning, she was not given her diet order in time and eventually was too upset to eat after it was brought to her. Her pain has improved significantly with the CHIEF SUBSTATION OPERATOR Dilaudid. She denies nausea, vomiting, fever, chills, [...] mL, IR Drain, Daily Continuous: (1) HYDROmorphone CHIEF SUBSTATION OPERATOR in 50mL NS 10 mg 10 mg [...] pending, for [place] Kidney scan, NPO at [place] for nephrostomy tube exchange, resume diet after. Will discuss discontinuing CHIEF SUBSTATION OPERATOR Dilaudid after nephrostomy exchange. Digitally Signed by PRIMO CANELA MD on 10/02/2022 06:39 AM [id number] Note ORIGINAL PROCEDURE: INTRODUCTION-NEPHRO TUBE MODERATE CONSCIOUS [...] the nurse. The patient has an active CHIEF SUBSTATION OPERATOR pump present. Very generous lidocaine was utilized FLUOROSCOPY DOSE AND TYPE OR TIME AND EXPOSURES: Fluoroscopy time 0.8min Total DLP: 5 mGy Number of images: 2 DESCRIPTION OF PROCEDURE: Informed consent was obtained after a detailed explanation of the procedure including risks, benefits, and alternatives. Eldred protocol was observed. Sterile gowns, masks, hats [...] catheter was readily removed. A new 8 Mongolian 26 cm nephroureteral stent was placed. Its [...] 1. Successful placement of a new 8 Mongolian 26 cm left nephroureteral stent. 2. Left nephrostogram and antegrade pyelography Interpreted by: Janet Florez Preliminary Report By: Janet Florez Electronically signed By Janet Florez Dictated Date: 10/02/2022 7:44:31 PM Prelim Date: 10/02/2022 7:49:25 PM Sign Date: 10/02/2022 7:49:25 PM Ordering Provider: [facility]11-30-2022 Note Date of Service 10/02/2022 Chief Complaint Abdominal pain Difficulty urinating Subjective Patient seen and examined. She is upset this morning, she was not given her diet order in time and eventually was too upset to eat after it was brought to her. Her pain has improved significantly with the CHIEF SUBSTATION OPERATOR Dilaudid. She denies nausea, vomiting, fever, chills, [...] mL, IR Drain, Daily Continuous: (1) HYDROmorphone CHIEF SUBSTATION OPERATOR in 50mL NS 10 mg 10 mg [...] Activity: Ambulate >> Diet: Regular, NPO at [place] (CLD with medications) >> IVF: NS 90 [...] pending, for [place] Kidney scan, NPO at [place] for nephrostomy tube exchange, resume diet after. Will discuss discontinuing CHIEF SUBSTATION OPERATOR Dilaudid after nephrostomy exchange. Digitally Signed by PRIMO CANELA MD on 10/02/2022 06:39 AM [id number] Infectious disease Progress note Date of Service 10/02/2022 Objective Vitals and Measurements T: 36.4 C (Oral) TMIN: 36.4 C (Oral) TMAX: 36.9 C (Oral) HR: 75 RR: 18 BP: 115/86 SpO2: 100% Physical Exam Chart reviewed, patient examined. Patient is alert and oriented x3, rather flat in affect, resting in bed on Dilaudid CHIEF SUBSTATION OPERATOR pump. No c/o VD. Reports ongoing nausea, requesting Ativan and Zofran. Reports generalized fatigue, did not sleep well overnight. Reports continued bilateral flank as well as abdominal pain, although does report improvement with CHIEF SUBSTATION OPERATOR. No other new complaints this AM, bedside [...] mL, IR Drain, Daily Continuous: (1) HYDROmorphone CHIEF SUBSTATION OPERATOR in 50mL NS 10 mg 10 mg [...] Emili Clark RN on 10/02/2022 08:54 AM [id number] Infectious disease Progress note Date of Service 10/02/2022 Objective Vitals and Measurements T: 36.4 C (Oral) TMIN: 36.4 C (Oral) TMAX: 36.9 C (Oral) HR: 75 RR: 18 BP: 115/86 SpO2: 100% Physical Exam Chart reviewed, patient examined. Patient is alert and oriented x3, rather flat in affect, resting in bed on Dilaudid CHIEF SUBSTATION OPERATOR pump. No c/o VD. Reports ongoing nausea, requesting Ativan and Zofran. Reports generalized fatigue, did not sleep well overnight. Reports continued bilateral flank as well as abdominal pain, although does report improvement with CHIEF SUBSTATION OPERATOR. No other new complaints this AM, bedside [...] mL, IR Drain, Daily Continuous: (1) HYDROmorphone CHIEF SUBSTATION OPERATOR in 50mL NS 10 mg 10 mg [...] Emili Clark RN on 10/02/2022 08:54 AM [facility] [id number] Note Date of Service 10/02/2022 Chief Complaint Abdominal pain Difficulty urinating Subjective Patient seen and examined. She is upset this morning, she was not given her diet order in time and eventually was too upset to eat after it was brought to her. Her pain has improved significantly with the CHIEF SUBSTATION OPERATOR Dilaudid. She denies nausea, vomiting, fever, chills, [...] mL, IR Drain, Daily Continuous: (1) HYDROmorphone CHIEF SUBSTATION OPERATOR in 50mL NS 10 mg 10 mg [...] Activity: Ambulate >> Diet: Regular, NPO at [place] (CLD with medications) >> IVF: NS 90 [...] pending, for [place] Kidney scan, NPO at [place] for nephrostomy tube exchange, resume diet after. Will discuss discontinuing CHIEF SUBSTATION OPERATOR Dilaudid after nephrostomy exchange. Digitally Signed by PRIMO CANELA MD on 10/02/2022 06:39 AM [id number] Infectious disease Consult note Date of Service [...] faecalis Nuclear medicine renal scan is pending DEPUTY SHERIFF CUSTODY/onc board and following Discussed with patient, she [...] 100 mg= 1 cap(s), Oral, BID Dilaudid CHIEF SUBSTATION OPERATOR (0.2mg/1 mL) 10 mg, 10 mg= 50 [...] RUVALCABA BA, MD on 10/01/2022 11:23 AM [facility]Ckbfktit36-35-6608 Infectious disease Consult note Date of Service [...] faecalis Nuclear medicine renal scan is pending DEPUTY SHERIFF CUSTODY/onc board and following Discussed with patient, she [...] 100 mg= 1 cap(s), Oral, BID Dilaudid CHIEF SUBSTATION OPERATOR (0.2mg/1 mL) 10 mg, 10 mg= 50 [...] RUVALCABA BA, MD on 10/01/2022 11:23 AM [facility] [id number] Note System generated consult for an establish left nephrostomy tube. Tube is secured with a StayFIX securement device. Patient is scheduled tomorrow for tube exchange. Digitally Signed by Rhea Pruett RN, Skin Team on 10/01/2022 10:01 AM [facility] [id number] Note Date of Service 10/01/2022 Chief Complaint [...] PRIMO CANELA MD on 10/01/2022 06:59 AM [facility] [id number] History and physical note Date of Service [...] chest pain, dizziness, vaginal bleeding, vaginal discharge. 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 Amenorrheic since initiation of Chemoradiation. Denies mammogram ever. Colonoscopy in 2019. Denies history of STDs. Not sexually active. Family History Mother with breast cancer Sister with cervical cancer Grandmother with cervical cancer Aunts with cervical cancer Cousins with cervical cancer ONCOLOGY HISTORY: - 04/04/2020: CT scan abdomen and pelvis. [facility]. Thickened cervical wall with involvementof the [...] underwent for intracavitary brachii therapy applications with eghu-yqtb-flni iridium 192afterloading device utilizing a tandem and [...] Start Date End Date Elapsed Days IMRT DEPUTY SHERIFF CUSTODY Pelvis 6X 180 4,500 04/26/2020 06/02/2020 37 3D PM Bst 18X 180 540 06/05/2020 06/07/2020 2 GENETIC TESTING: - Patient had genetic testing sent through [facility]. No reportable somatic or germline pathogenic or [...] PRIMO CANELA MD on 09/30/2022 08:19 PM [id number] Note Date of Service 10/01/2022 Chief Complaint [...] PRIMO CANELA MD on 10/01/2022 06:59 AM [facility] [id number] History and physical note Date of Service [...] chest pain, dizziness, vaginal bleeding, vaginal discharge. 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 Amenorrheic since initiation of Chemoradiation. Denies mammogram ever. Colonoscopy in 2019. Denies history of STDs. Not sexually active. Family History Mother with breast cancer Sister with cervical cancer Grandmother with cervical cancer Aunts with cervical cancer Cousins with cervical cancer ONCOLOGY HISTORY: - 04/04/2020: CT scan abdomen and pelvis. [facility]. Thickened cervical wall with involvementof the [...] underwent for intracavitary brachii therapy applications with voxs-yiqq-oxeo iridium 192afterloading device utilizing a tandem and [...] Start Date End Date Elapsed Days IMRT DEPUTY SHERIFF CUSTODY Pelvis 6X 180 4,500 04/26/2020 06/02/2020 37 3D PM Bst 18X 180 540 06/05/2020 06/07/2020 2 GENETIC TESTING: - Patient had genetic testing sent through [facility]. No reportable somatic or germline [...] PRIMO CANELA MD on 09/30/2022 08:19 PM [facility] [id number] Evaluation + Plan noteExtracted from: Title:Gynecology Oncology [...] Date:01/01/2023 11:30:00 AM Scheduled Provider:FLIP MARTIN MD Location:DEPUTY SHERIFF CUSTODY ONC Appointment Type:SO OV Follow Up Future [...] IR Neph Cath-Neph Ureter W/Guide Left 06/02/23 [facility] 10-14-2022 Hospital Discharge instructions Patient Education 08/16/2022 13:25:49 Radiology- Nephrostomy Tube Insertion(CUSTOM) [place] Nephrostomy Tube Insertion Discharge Instructions Interventional Radiology [facility] Imaging Services [facility] [address] The procedure that you had done today [...] mayexperience the feeling of needing to urinate. Ohdd-sij-vnmtbwd pain medication should be used for pain [...] instruction below: 8:00 am- 5:00 pm call [phone] After 5:00 pm call [phone] After 24 hours, contact the physician who ordered this procedure for you. Special Instructions: Follow Up Care 08/08/2022 16:44:45 With:FLIP MARTIN MD Address: [address] [place] [address] [place]nec[place] [address]- [phone] When: Unknown Comments:call office for a follow up appointment even tho you have 1 for next year With:DOMINIQUE MARY MD Address: [address] [place] [address]- When:1-2 days Comments:Accepting new patients With:PRIYANK ROWLAND MD Address: [address] [place] [address]- When:1-2 days Comments:Accepting new patients With:RYAN POTTS BRIM GREASER OPERATOR-[facility] Address: [address] [facility] [address] [place] [address]- When:1-2 days Comments:Accepting new patients [facility] 10-14-2022 Note Discharge Instructions Thank you for allowing [facility] to assist you with your healthcare needs. [...] 01/01/2023 11:30 AM EST FLIP MARTIN MD [facility] [address] [place] [phone] Follow Up Appointments Follow Up with FLIP MARTIN MD When Why: call office for a follow up appointment even tho you have 1 for next year Where: [address] [place] [address] [place] [address]- [phone] Follow Up with DOMINIQUE MARY MD When Within 1-2 days Why: Accepting new patients Where: [address] [place] [address]- Follow Up with PRIYANK ROWLAND MD When Within 1-2 days Why: Accepting new patients Where: [address] [place] [address]- Follow Up with RYAN POTTS APRN-KANDY When Within 1-2 days Why: Accepting new patients Where: [address] [place] [address]- The Following Activity and Diet Have Been [...] Muscle spasm Duration: [facility] New HYDROmorphone (Dilaudid 2 mg oral tablet) 1 tab(s) by mouth Every 4 hours as needed for as needed for pain Cancer related pain History of radiation therapy Duration: 5 [facility] New lidocaine topical (lidocaine 5% topical patch) 1 patch(es) Topical Once a day remove patches after 12 hours Pickup at [facility] 1721 New naproxen (naproxen 250 mg oral tablet) 1 tab(s) by mouth Two (2) times a day Pickup at [facility] 172 New nitrofurantoin (Macrobid 100 mg oral capsule) 1 cap by mouth Two (2) times a day Duration: 3 Days Take with food Pickup at [facility] 172 New promethazine (promethazine 12.5 mg rectal suppository) 1 suppository(ies) in the rectum Every 6 hours as needed for for nausea/vomiting Pickup at [place] [address] Changed acetaminophen (Tylenol 325 mg oral capsule) 650 Milligram by mouth Every 4 hours as needed for Pain, scale 1-3 Changed acetaminophen (Tylenol 325 mg oral tablet) 2 tab(s) by mouth Every 4 hours as needed for for pain Duration: 7 Days Pickup at [place] [address] Unchanged LORazepam (Ativan 1 mg oral tablet) [...] Milliliter IR Drain Every day Pharmacy Information [place] [address]: [address], [place] [id number] [phone] What How Much When Why Comments Stop [...] medication providers or retail pharmacies. Education Materials [place] Nephrostomy Tube Insertion Discharge Instructions Interventional Radiology [facility] Imaging Services [address] [place] [address] The procedure that you had done today [...] mayexperience the feeling of needing to urinate. Csgs-gyn-dqwsnfy pain medication should be used for pain [...] instruction below: 8:00 am- 5:00 pm call [phone] After 5:00 pm call [phone] After 24 hours, contact the physician who ordered this procedure for you. Special Instructions: Additional Information VACCINATE! IT SAVES LIVES! Members of the community who have not yet received the COVID-19 vaccine and would like to receive it can visit one of [facility] vaccine clinics. There are many vaccine clinic locations within the [facility]. For locations and available times, please visit [email or web address] It is important to note that some COVID mobile vaccine clinics are held outdoors and may be canceled in rainy or stormy conditions. To learn more about pediatric vaccinations (ages 5-11), we invite you to visit the [facility] webpage. [email or web address]/[email or web address] [email or web address] learn more about the COVID-19 vaccine, we invite you to visit the [facility] website for a list of frequently asked questions. [email or web address] _[email or web address].pdf [facility] Patient Portal Access Instructions: Stay connected with your healthcare team and access your personal medical information anytime with the [facility] Patient Portal.If you would like a full copy of your medical records, please contact the [facility] Medical Records Department, Friday through Friday between 8a.m. and 4:30p.m. Please follow the directions below to access the portal: 1.Access the email account you provided upon registration to the hospital.2.Look for an invitation email from [facility].3.Open the email and access the invitation link: Accept Invitation to [facility]4.Fill in the required quintero to create your account. Sign into www.[employer] with your username and password that you [...] you will allow to register on the [facility] Patient Portal for access to your information. You can also access the [facility] Patient Portal on the Scripted joya. Simply click on Health Records under [employer] and then click on the [employer] logo. HOW TO SAFELY DISPOSE OF PRESCRIPTION [...] Call your local pharmacy or go to [email or web address] to find one close to you.3.Make use of household items: Use cat litter or old coffee grounds to dispose medications if other options arenot available. Mix your drugs with these household products, seal them in an airtight container andthrow it into the garbage. Call [facility]: [phone] to be sure your drugs can be [...] aware that I should contact my doctor. Patient/Physical Therapy Aide Signature: Date/Time: Relationship to Patient: Witness Name/Signature: Date/Time: [id number] Palliative care Progress note Date of Service [...] on an every 4 hour basis, the DEPUTY SHERIFF CUSTODY team may want to consider starting her on a long-acting pain medicine if they felt as though that was appropriate. I did explain to Dr. Fitzgerald since this is a chronic pain, we would not manage in the outpatient setting. Patient's OARRS re port was reviewed. Digitally Signed by LESIA DENIS on 08/16/2022 01:17 PM [facility]uc[facility]vx22[facility]20 Note Date of Service 08/16/2022 Chief Complaint [...] Converses easily. Abdom: Soft, nontender, nondistended. +BS z4jlwhxpqhp Extrem: no edema, no erythema, nontender Weight [...] MD Digitally Signed by CLOTILDE GARCIA MD [facility]Oxsrxfac80-89-8421 Note Date of Service 08/15/2022 Chief Complaint [...] Converses easily. Abdom: Soft, nontender, nondistended. +BS c2qccxbhakm Extrem: no edema, no erythema, nontender Weight [...] ALANNA SCANLON DO on 08/15/2022 08:02 AM [facility]Pzvwjvyn16-42-6889 Palliative care Consult note Date of Service [...] Result Date: August 09, 2022 Verified By: HENRANDEZ RODRIGEZ MD CLINICAL STATEMENT: IMPRESSION: Normal appearing [...] by LESIA DENIS on 08/15/2022 03:37 PM [facility] CincinnatiMsoimluo17-28-6569 Note Date of Service 08/15/2022 Chief Complaint [...] Converses easily. Abdom: Soft, nontender, nondistended. +BS b0zzgatlhiq Extrem: no edema, no erythema, nontender Weight [...] ALANNA SCANLON DO on 08/15/2022 08:02 AM [facility] CincinnatiZilpzchl83-86-1610 Note Date of Service 08/15/2022 Chief Complaint [...] Converses easily. Abdom: Soft, nontender, nondistended. +BS h7ztxjectdb Extrem: no edema, no erythema, nontender Weight [...] ALANNA SCANLON DO on 08/15/2022 08:02 AM [facility] CincinnatiUoiccmpv34-32-9289 Note Date of Service 08/15/2022 Chief Complaint [...] Converses easily. Abdom: Soft, nontender, nondistended. +BS t8cntxaxxuh Extrem: no edema, no erythema, nontender Weight [...] ALANNA SCANLON DO on 08/15/2022 08:02 AM [facility] CincinnatiCrrrgfgp53-37-9106 Note Date of Service 08/15/2022 Chief Complaint [...] Converses easily. Abdom: Soft, nontender, nondistended. +BS q6dyxdhxnti Extrem: no edema, no erythema, nontender Weight [...] ALANNA SCANLON DO on 08/15/2022 08:02 AM [facility] CincinnatiIpxwmkem66-60-0887 Nurse Progress note Patient refused colace. Stated It's been giving heartburn for the last 3 days. Digitally Signed by Cecilia English LPN on 08/14/2022 08:22 PM [facility] CincinnatiZrtcryhu79-02-3003 Nurse Progress note Patient refused colace. Stated It's been giving heartburn for the last 3 days. Digitally Signed by Cecilia English LPN on 08/14/2022 08:22 PM [facility] CincinnatiFuacuvvq29-23-9124 Note Date of Service 08/14/2022 Chief Complaint [...] Converses easily. Abdom: Soft, nontender, nondistended. +BS u7jxxkqxzfd. L nephrostomy fluid yellow tinged. Extrem: no [...] ALANNA SCANLON DO on 08/14/2022 06:50 AM [facility] CincinnatiXqivhhxk30-42-2115 Note IR Procedure Record Summary Primary Physician: VIRAL MANUEL MD Finalized Date/Time: 08/14/22 14:10:33 Pt. Name: LALY NAVAS.O.B./Sex: 1990 Female Med Rec #: [id number] Physician: FLIP MARTIN MD Financial #: [id number] Pt. Type: I Room/Bed: [facility]/A Admit/Disch: 08/08/22 16:43:27 - Institution: Allergies identified in patient's electronic medical record at time of printing on 08/14/22 Entry 1 Entry 2 Substance codeine penicillin Reaction Type Allergy Allergy Last Modified By: Cesar Hyman RN, RN Evan 02/03/21 04/12/20 15:04:17 17:13:24 Case Attendance- IR Entry 1 Entry 2 Entry 3 Case Attendee VIRAL MANUEL MD, [facility] Devika Cuellar, JAMAL Boyce Role Performed Primary Surgeon Scrub Technologist Procedure [...] Radiology - Action Plan Outcomes Met? Yes Accounting Consultant Lexi Marcano RN Completing Procedure Plan Last Modified By: Lexi Marcano RN 08/14/22 12:53:32 Case Comments Finalized By: JAMAL Cuellar Document Signatures Signed By: Sam Junior 08/14/22 13:21 Lexi Marcano RN 08/14/22 12:56 JAMAL Cuellar 08/14/22 14:10 [facility] CincinnatiFwgeupup95-98-4033 Note Date of Service 08/14/2022 Chief Complaint [...] Converses easily. Abdom: Soft, nontender, nondistended. +BS s0ftglxynca. L nephrostomy fluid yellow tinged. Extrem: no [...] ALANNA SCANLON DO on 08/14/2022 06:50 AM [facility] CincinnatiTlnmxjds17-25-4937 Note Date of Service 08/14/2022 Chief Complaint [...] Converses easily. Abdom: Soft, nontender, nondistended. +BS u8ehmhuffab. L nephrostomy fluid yellow tinged. Extrem: no [...] ALANNA SCANLON DO on 08/14/2022 06:50 AM [facility] CincinnatiRljzwjxu11-82-6479 Note Date of Service 08/13/2022 Chief Complaint Abdominal pain, Nausea/Vomiting, Constipation Subjective Patient seen and examined with Dr. rGaves. She denies BM overnight. Reports projective vomiting [...] Converses easily. Abdom: Soft, nontender, nondistended. +BS w0dzvyikjdj Extrem: no edema, no erythema, nontender Weight [...] BUN: <5.0 L Creatinine Lvl (s): 0.87 10/10 06:05 WBC: 6.7 Hgb: 11.1 L Hct: [...] ALANNA SCANLON DO on 08/13/2022 07:00 AM [facility] CincinnatiQqktwoqw70-14-6061 Note Date of Service 08/13/2022 Chief Complaint [...] Converses easily. Abdom: Soft, nontender, nondistended. +BS u5woqfqmiaf Extrem: no edema, no erythema, nontender Weight [...] ALANNA SCANLON DO on 08/13/2022 07:00 AM [facility] CincinnatiHnivwnif86-26-8880 Note ORIGINAL EXAMINATION: THREE XRAY VIEWS OF [...] Sign Date: 08/12/2022 11:43:25 PM Ordering Provider: [facility]10-10-2022 Note ORIGINAL EXAMINATION: THREE XRAY VIEWS OF [...] 08/12/2022 11:43:25 PM Ordering Provider: [facility]10-10-2022 Note Date of Service 08/12/2022 Chief Complaint [...] Converses easily. Abdom: Soft, nontender, nondistended. +BS s0bjwbfspjs Extrem: no edema, no erythema, nontender Weight [...] coli; 100,000 cfu/ml Escherichia coli #2; ANA ILLIA to follow - Patient with left nephrostomy [...] ALANNA SCANLON DO on 08/12/2022 06:50 AM [facility] CincinnatiGfiiolup21-02-0163 Note Date of Service 08/12/2022 Chief Complaint [...] Converses easily. Abdom: Soft, nontender, nondistended. +BS a3gmstbjzvb Extrem: no edema, no erythema, nontender Weight [...] ALANNA SCANLON DO on 08/12/2022 06:50 AM [facility] CincinnatiMsazbgwy19-09-5346 Note Date of Service 08/10/22 Chief Complaint [...] MARIA GODOY DO on 08/10/2022 07:21 AM [facility] CincinnatiIlatiivf20-35-2502 Note Date of Service 08/09/2022 Chief Complaint [...] use. Converses easily. Abdom: Soft, nondistended. +BS m3tijmuefsb Extrem: no edema, no erythema, nontender Weight [...] -2019, Dr. Martin 4. Anxiety - consider marriage and family social worker consult - declined counseling 5. [...] ALANNA SCANLON DO on 08/09/2022 07:30 AM [facility] CincinnatiDdlmpbov01-87-4914 History and physical note Result type: History and Physical Result date: August 08, 2022 15:00 EDT Result status: Auth (Verified) Result title: History and Physical Performed by: ALANNA SCANLON DO on August 08, 2022 12:25 EDT Verified by: ALANNA SCANLON DO on August 08, 2022 20:00 EDT Encounter info: [id number], [facility], Office, 08/08/2022 - * Final Report [...] 31 Years old woman who presents from [facility] (drove self) for back pain, likely UTI. [...] use. Converses easily. Abdom: Soft, nondistended. +BS k9tbeoxkhmb. Tenderness to palpation in the left lower [...] ALANNA SCANLON DO on 08/09/2022 11:59 AM [facility] CincinnatiAvigrnet68-37-4412 Note Date of Service 08/11/2022 Chief Complaint [...] further concerns or complaints at this time andall questions were addressed thoroughly. No further concerns [...] FARZANA CAST DO on 08/11/2022 07:48 AM [facility] CincinnatiPzelgyis70-89-4705 Note Date of Service 08/11/2022 Chief Complaint [...] FARZANA CAST DO on 08/11/2022 07:48 AM [facility] CincinnatiRmabotja45-38-0733 Note Date of Service 08/10/22 Chief Complaint [...] MARIA GODOY DO on 08/10/2022 07:21 AM [facility] CincinnatiDdumkszn61-85-5574 Note Date of Service 08/10/22 Chief Complaint [...] MARIA GODOY DO on 08/10/2022 07:21 AM [facility] CincinnatiCumugqqt63-31-8088 Note Date of Service 08/09/2022 Chief Complaint [...] use. Converses easily. Abdom: Soft, nondistended. +BS a2stxxnlivs Extrem: no edema, no erythema, nontender Weight [...] -2019, Dr. Martin 4. Anxiety - consider marriage and family social worker consult - declined counseling 5. [...] scale 4-6, 0, 08/08/22:: EDT melatonin, Start: 08/08/22 17:: EDT, Dose = 3 mg, = 1 tab(s), Oral, qHS, PRN, as needed for insomnia, 0, 08/08/22 17::00 EDT ondansetron, Start: 08/08/22 18:00:00 EDT, Dose [...] PRN, Reflux, mL/hr, Infuseover: 2 minute(s), 0, 10/06/22 17:26:00 EDT promethazine, Start: 08/08/22 17:26:00 EDT, [...] ALANNA SCANLON DO on 08/09/2022 07:30 AM [facility] CincinnatiNtgnnsir62-64-1129 Note System generated consult secondary to established nephrostomy tube. Appliance intact with dry dressing; draining well. Patient states no issues. Digitally Signed by JAMAL Bach February on 08/09/2022 12:02 PM [facility] CincinnatiWpactfxz50-35-5091 Note ORIGINAL EXAMINATION: ULTRASOUND OF THE KIDNEYS [...] Date: 08/09/2022 8:05:44 AM Ordering Provider: DILLAN KUMAR [facility] CincinnatiHnmsmktj47-92-7120 History and physical note Result type: History and Physical Result date: August 08, 2022 15:00 EDT Result status: Auth (Verified) Result title: History and Physical Performed by: ALANNA SCANLON DO on August 08, 2022 12:25 EDT Verified by: ALANNA SCANLON DO on August 08, 2022 20:00 EDT Encounter info: [id number], [facility] [employer] [facility], Office, 08/08/2022 - * Final Report [...] 31 Years old woman who presents from [facility] (drove self) for back pain, likely UTI. [...] use. Converses easily. Abdom: Soft, nondistended. +BS k4wrvsecglr. Tenderness to palpation in the left lower [...] ALANNA SCANLON DO on 08/09/2022 11:59 AM [facility] CincinnatiSujjtgfn35-98-4386 Note Date of Service 08/09/2022 Chief Complaint [...] use. Converses easily. Abdom: Soft, nondistended. +BS e0mqegzbrec Extrem: no edema, no erythema, nontender Weight [...] -2019, Dr. Martin 4. Anxiety - consider marriage and family social worker consult - declined counseling 5. [...] 100 mg, = 1 cap(s), Oral, BID, 08/08/22:: EDT famotidine, Start: 08/08/22 17:: EDT, Dose = 20 mg, = 1 tab(s), Oral, BID, PRN, Reflux, 0, 08/08/22::00 EDT HYDROmorphone, Start: 08/08/22 17:: EDT, Dose [...] ALANNA SCANLON DO on 08/09/2022 07:30 AM [facility] CincinnatiYeqywphq90-07-2265 Note ORIGINAL EXAMINATION: ULTRASOUND OF THE KIDNEYS [...] Date: 08/09/2022 8:05:44 AM Ordering Provider: DILLAN [facility]UMARSelect [facility] CincinnatiTmznarzd14-35-5131 Summary of episode note LALY NAVAS :1990 [...] Care Team Attending Physician - BRITTNI LU APRN-EMPLOYER RELATIONS REPRESENTATIVE Primary Care Physician - FLIP MARTIN MD Vitals Temperature (Oral) 36.6 C Heart Rate 71 Respiratory Rate 18 Blood Pressure 126/87(Left Arm) What to do next Scheduled Follow-Up Appointments Appointment Type When With Where Contact InformationIR Neph Cath-Neph Ureter W/Guide Left 08/15/2022 01:00 PM EDT IR SO OV Follow Up 01/01/2023 11:30 AM FLIP CORRALES MD [facility] [address] [place] [id number] Medications What How Much When Why Instructions [...] - 7.1 10^3/mcL BMP w/ Ionized Calcium ([facility]) (08/08/2022) Glucose Level - 97 mg/dL Sodium [...] to receive it can visit one of [facility] vaccine clinics. There are many vaccine clinic locations within the [facility]. For locations and available times, please visit [email or web address]. It is important to note that some COVID mobile vaccine clinics are held outdoors and may be canceled in rainy orstormy conditions. To learn more about pediatric vaccinations (ages 5-11), we invite you to visit the [facility] webpage. https://www.[email or web address]/pages/5784-Sbhlu-Irlajayxqnb-Heqijhqnfx-Yvjwx-Xpj stions.htmlTo learn more about the COVID-19 vaccine, we invite you to visit the [facility] website for a list of frequently asked questions. [email or web address] _[email or web address]-Questions.pdf [facility] Patient Portal Access Instructions: Stay connected with your healthcare team and access your personal medical information anytime with the [facility] Patient Portal.If you would like a full copy of your medical records, please contact the [facility] Medical Records Department, Friday through Friday between 8a.m. and 4:30p.m. Please follow the directions below to access the portal: 1.Access the email account you provided upon registration to the hospital.2.Look for an invitation email from [facility].3.Open the email and access the invitation link: Accept Invitation to [facility]4.Fill in the required quintero to create your account. Sign into www.[employer] You with your username and password that you [...] you will allow to register on the [facility] Patient Portal for access to your information. You can also access the [facility] Patient Portal on the [employer]. Simply click on Health Records under [employer] and then click on the [employer] logo. HOW TO SAFELY DISPOSE OF PRESCRIPTION [...] Call your local pharmacy or go to [email or web address] to find one close to you.3.Make use of household items: Use cat litter or old coffee grounds to dispose medications if other options arenot available. Mix your drugs with these household products, seal them in an airtight container andthrow it into the garbage. Call [facility]: [phone] to be sure your drugs can be [...] aware that I should contact my doctor. Patient/Physical Therapy Aide Signature: Date/Time: Relationship to Patient: Witness Name/Signature: Date/Time: [facility] CincinnatiYhrxulcp84-77-5166 Note* JAMAL Lindsey E: SIGN, AUTHOR, PERFORM Event Display: IR Procedure Record Authored Date: [id number] IR Procedure Record Summary Primary Physician: Finalized Date/Time: 07/04/22 13:57:26 Pt. Name: LALY NAVAS D.O.B./Sex: 1990 Female Med Rec #: [id number] Physician: Financial #: [id number] Pt. Type: O Room/Bed: / Admit/Disch: 07/04/22 10:21:00 - Institution: Allergies identified in patient's electronic medical record at time of printing on 07/04/22 Entry 1 Entry 2 Substance codeine penicillin Reaction Type Allergy Allergy Last Modified By: Cesar Hyman RN, RN Evan 02/03/21 04/12/20 15:04:17 17:13:24 Case Attendance- IR Entry 1 Entry 2 Entry 3 Case Attendee [facility]IRAL [facility]EL [facility] Deborah E Tech Role Performed Radiologist [...] 5, Gauze Technologist Notes 8.5F x 26cm Crawford sponge 4 X 4 Nephroureterostomy Stent lot#[id number] LT Renal Last Modified By: JAMAL Lindsey [...] Radiology - Action Plan Outcomes Met? Yes Accounting Consultant JAMAL Lindsey Completing Procedure Plan Last Modified [...] Signatures Signed By: JAMAL Lindsey 07/04/22 13:57 [facility] 09-01-2022 Evaluation + Plan noteExtracted from: Title:IR [...] Ready to change: Yes. Physical Exam Vitals: Iihzwywckyd74.7 (10:37) Systolic Blood PressureNo result Diastolic Blood PressureNo result Pulse88 (10:37) AkY067 (10:37) Respiratory Rate18 (10:37) General: Alert, cooperative. [...] Date:01/01/2023 11:30:00 AM Scheduled Provider:FLIP MARTIN MD Location:[facility] Appointment Type:SO OV Follow Up Future [...] IR Neph Cath-Neph Ureter W/Guide Left 06/02/23 [facility] 09-01-2022 Note IR Procedure Record Summary Primary Physician: Finalized Date/Time: 07/04/22 13:57:26 Pt. Name: ILEANA NAVASAusten Mittal/Sex: 1990 Female Med Rec #: [id number] Physician: Financial #: [id number] Pt. Type: O Room/Bed: / Admit/Disch: 07/04/22 [...] Procedure EBL 0 mL Last Modified By: Sandi Sam Fortune Alice 07/04/22 12:57:11 Radiology Procedure Details - [...] 5, Gauze Technologist Notes 8.5F x 26cm Crawford sponge 4 X 4 Nephroureterostomy Stent lot#[id number] LT Renal Last Modified By: JAMAL Lindsey 07/04/22 13:56:46 General Case Data - IR Entry 1 Case Information Room IR 18 Case Level IR Level 2 Wound Class None Specialty SN Radiology Procedure ASA Class None Diagnosis Preop Diagnosis cerival cancer Postop Same As Preop Yes Postop Diagnosis cerival cancer Last Modified By: Sandi Make Up Operator Helper Devika Alice 07/04/22 12:56:49 Medication Administration- IR Entry [...] Radiology - Action Plan Outcomes Met? Yes Accounting Consultant JAMAL Lindsey Completing Procedure Plan Last Modified [...] Signatures Signed By: JAMAL Lindsey 07/04/22 13:57 [facility] CincinnatiXtqnotxw63-49-8995 Hospital Discharge instructions Patient Education 07/04/2022 11:35:17 Radiology- Nephrostomy Tube Insertion(CUSTOM) [place] Nephrostomy Tube Insertion Discharge Instructions Interventional Radiology [facility] Imaging Services [address] [place] [address] The procedure that you had done today [...] mayexperience the feeling of needing to urinate. Bqoi-fuk-uwxyefy pain medication should be used for pain [...] instruction below: 8:00 am- 5:00 pm call [phone] After 5:00 pm call [phone] After 24 hours, contact the physician who [...] until you are awake and alert. Take dfyv-myg-zoyfmvk and prescription medicines only as told by [...] 08/10/2014 Document Revised: 10/02/2018 Document Reviewed: 02/08/2017 What the Trend Patient Education [employer]. Follow Up Care 05/23/2022 11:54:48 With:FLIP MARTIN MD Address: [phone] When: Unknown Comments:Follow-up as scheduled [facility] 09-01-2022 Note INTERVENTIONAL RADIOLOGY POST PROCEDURE NOTE DATE: 07/04/2022 13:14:19 NAME: LALY NAVAS Pre-Procedure Diagnosis: Left ureteral obstruction. Post Procedure Diagnosis: Same. Polisher Dial: Dr. Viral Manuel Procedure: Left nephroureteral catheter exchange. Anesthesia: Procedural sedation. Findings: Success. Estimated Blood Loss: Minimal (Less Than 10 mL). Specimen: None. Complications: None. Full report with procedural details to follow and will become available under the Radiology tab of Results Review. Please contact for any questions or concerns. Viral Manuel MD Interventional Radiology Pager: [phone] Digitally Signed by VIRAL MANUEL MD on 07/04/2022 01:14 PM [facility] CincinnatiLiylyupb38-07-6261 Summary of episode note Discharge Instructions Thank you for allowing [facility] to assist you with your healthcare needs. The following is importantdischarge information regarding your hospital visit. Your Care Team FLIP MARTIN MD What to do next Scheduled Follow-Up Appointments Appointment Type When With Where Contact InformationSO OV Follow Up 01/01/2023 11:30 AM EST FLIP MARTIN MD [facility] Follow Up Appointments Follow Up with FLIP MARTIN MD When Why: Follow-up as scheduled Where: [phone] Allergies codeine penicillin Medications Please ask your [...] medication providers or retail pharmacies. Education Materials [place] Nephrostomy Tube Insertion Discharge Instructions Interventional Radiology [facility] Imaging Services [address] [place] [address] The procedure that you had done today [...] mayexperience the feeling of needing to urinate. Hnrk-qbj-drhjddv pain medication should be used for pain [...] instruction below: 8:00 am- 5:00 pm call [phone] After 5:00 pm call [phone] After 24 hours, contact the physician who [...] until you are awake and alert. Take ogpi-lbo-nsfbeas and prescription medicines only as told by [...] 08/10/2014 Document Revised: 10/02/2018 Document Reviewed: 02/08/2017 What the Trend Patient Education 2020 [employer]. Additional Information VACCINATE! IT SAVES LIVES! Members of the community who have not yet received the COVID-19 vaccine and would like to receive it can visit one of [facility] vaccine clinics. There are many vaccine clinic locations within the [facility]. For locations and available times, please visit [email or web address] It is important to note that some COVID mobile vaccine clinics are held outdoors and may be canceled in rainy or stormy conditions. To learn more about pediatric vaccinations (ages 5-11), we invite you to visit the [facility] webpage. https://www.[email or web address].org/pages/3846-Vsfpu-Jlqrpjqxxxg-Kaecvrmrqj-Whgyy-Qsr stions.htmlTo learn more about the COVID-19 vaccine, we invite you to visit the [facility] website for a list of frequently asked questions. [email or web address]/[email or web address] _Asked-Questions.pdf [facility] Patient Portal Access Instructions: Stay connected with your healthcare team and access your personal medical information anytime with the [facility] Patient Portal.If you would like a full copy of your medical records, please contact the [facility] Medical Records Department, Friday through Friday between 8a.m. and 4:30p.m. Please follow the directions below to access the portal: 1.Access the email account you provided upon [facility].2.Look for an invitation email from [facility].3.Open the email and access the invitation link: Accept Invitation to [facility]4.Fill in the required quintero to create your account. Sign into www.Fashion [employer] You with your username and password that you [...] you will allow to register on the [facility] Patient Portal for access to your information. You can also access the [facility] Patient Portal on the My [employer] Works. Simply click on Health Records under [employer]Data and then click on the M[employer] logo. HOW TO SAFELY DISPOSE OF PRESCRIPTION [...] Call your local pharmacy or go to [email or web address] to find one close to you.3.Make use of household items: Use cat litter or old coffee grounds to dispose medications if other options arenot available. Mix your drugs with these household products, seal them in an airtight container andthrow it into the garbage. Call [facility]: [phone] to be sure your drugs can be [...] aware that I should contact my doctor. Patient/Physical Therapy Aide Signature: Date/Time: Relationship to Patient: Witness Name/Signature: Date/Time: [facility]Gsreoznh94-87-5259 History and physical note Interventional Radiology Focused [...] Cervical biopsy: 2020 Tumor cells, benign: 2002 Cannulation of Portacath [...] Ready to change: Yes. Physical Exam Vitals: Iopkotypjho39.7 (10:37) Systolic Blood PressureNo result Diastolic Blood PressureNo result Pulse88 (10:37) SvK740 (10:37) Respiratory Rate18 (10:37) General: Alert, cooperative. [...] VIRAL MANUEL MD on 07/04/2022 01:35 PM [facility] CincinnatiMbrctewa71-17-9990 Hospital Discharge instructions Patient Education 04/19/2022 16:08:04 [...] recently been a patient in a hospital, retirement, or another care facility. Have another illness [...] soap and water or an alcohol-based hand fruit coordinator before they enter your roomand before they [...] soap and water or an alcohol-based hand fruit coordinator before they enter your room and before they leave your room. Taking antibiotics exactly as prescribed by your health care provider. Washing your hands with soap and water or an alcohol-based hand fruit coordinator after: ?Using the bathroom. ?Touching or coming [...] soap and water or an alcohol-based hand fruit coordinator, especially after using the bathroom. This information is not intended to replace advice given to you by your health care provider. Make sure you discuss any questions you have with your health care provider. Document Released: 11/22/2017 Document Revised: 10/02/2018 Document Reviewed: 11/22/2017 What the Trend Patient Education 2020 [employer]. Follow Up Care 04/14/2022 22:01:45 With:A referral has been made to [facility] for additional resources. Address: When: Unknown With:MARGOTH RUVALCABA BA, MD, Infectious Disease, Infectious Disease Group Address: [facility] [address] [place] [address]- When: Unknown Comments:Please call for a follow up appointment within 2 weeks With:[facility] - [phone] Address: When: Unknown With:[facility] - [phone]. Please go to [place] for labs to be drawn and Port dressing change. APPT scheduled: SUNDAY 04/22 @ 11:00 AM. (Main entrance; Registration on left) Address: When: Unknown With:FLIP MARTIN MD Address: [address] [facility] [place] [address] [phone] When:05/30/2022 14:50:00 [facility] 06-13-2022 Evaluation + Plan noteExtracted from: Title:History [...] tract infections. A UA was collected at [address] [place] [address] and was positive for nitrates. Patient has been and remains afebrile, WBC 11.0, patient was previously on ciprofloxacin and was transitioned to Bactrim today [facility] however did not take any of this medication yet, she received Rocephin at [facility] and we will switch her to meropenem due to previous sensitivities. Patient has left nephrostomy tube with clear yellow urine. She states that she emptied her nephrostomy tube for 600 cc of clear yellow urine today. A CT scan was obtained to [facility] which showed slightly dilated left ureter [...] Temp 36.7(APR 15 04:20) 36.7(APR 15:20) 36.8(APR 14:09) Resp Rate 18(APR 15:20) 18(APR 14:09) 18(APR 14:09) SBP 100(APR 15 04:20) 100(APR [...] this - Awaiting urine cultures collected at [facility], will follow up on throughout the [...] culture and sensitivities. Addendum by BRITTNI LU PRN-EMPLOYER RELATIONS REPRESENTATIVE on April 15, 2022 11:03:55 EDT This [...] Date:05/30/2022 02:50:00 PM Scheduled Provider:FLIP MARTIN MD Location[facility] Appointment Type:SO OV Follow Up Future Scheduled Tests Radiology* IR Neph Cath-Neph Ureter W/Guide Left 05/23/22 [facility] 06-09-2022 Hospital Discharge instructions Patient Education 04/11/2022 14:21:02 Radiology- Procedure/Biopsy 02/16/2020 (CUSTOM) [place] Rad[facility] Procedure/Biopsy Discharge Instructions Interventional Radiology [facility] [address] [address] Today, you had a . This procedure/biopsy [...] 1 to 2 days following the procedure. Ysyc-zaa-peztliv pain medication should be used for pain [...] instruction below: 8:00 am- 5:00 pm call [phone] After 5:00 pm call [phone] After 24 hours, contact the physician who [...] with primary care provider Address:Unknown When: Unknown [facility] 05-24-2022 Evaluation + Plan noteExtracted from: Title:IR [...] Ready to change: Yes. Physical Exam Vitals: Mfencqlchci12.7 (11:47) Systolic Blood PressureNo result Diastolic Blood PressureNo result Pulse76 (11:47) WxT656 (11:47) Respiratory Rate18 (11:47) General: Alert, cooperative. Heart: RRR Lungs: CTA bilaterally The remainder of the physical exam is noncontributory. Labs Anticoagulation Labs No qualifying data available. No qualifying data available. Assessment/Treatment Plan Image guided left nephroureteral tube exchange Post Procedure Discharge Plan Patient to be discharged home. Fani Beckman PA-C Interventional Radiology Pager: [phone] IR dept: x [phone] Available on [employer] Future Appointments Appointment Date:05/30/2022 02:50:00 PM Scheduled Provider:FLIP MARTIN MD Location:[facility] Appointment Type:SO Follow Up [facility] 02-18-2022 Evaluation + Plan noteExtracted from: Title:IR pre-procedure H&P - LEFT nephrostomy tube exchange Author:FANI BECKMAN PA-C Date:12/21/21 Interventional Radiology Focused Preprocedure History/Physical Reason for Visit Nephrostomy in Place, Due for Exchange History of Presenting Illness/Planned IR Procedure 30 y.o female with history of cervical cancer and hydronephrosis presents for routine LEFT nephrostomy tube exchange. Patient had ureteral stent placed in 06/2021 at [facility] and has not had a nephrostomy tube [...] Ready to change: Yes. Physical Exam Vitals: Xjyjenyjvoh11.7 (10:38) Systolic Blood PressureNo result Diastolic Blood PressureNo result Pulse81 (10:38) KdH141 (10:38) Respiratory Rate16 (10:38) General: Alert, cooperative. : + LEFT nephrostomy tube The remainder of the physical exam is noncontributory. Labs Anticoagulation Labs No qualifying data available. No qualifying data available. Assessment/Treatment Plan Image guided LEFT nephrostomy tube change Post Procedure Discharge Plan Patient to be discharged home. Fani Beckman PA-C Interventional Radiology Pager: [phone] IR dept: x [phone] [facility] Future Appointments Appointment Date:01/29/2022 11:00:00 AM Scheduled Provider: Location:IR Appointment Type:IR Neph Cath-Neph Ureter W/Guide Left Future Scheduled Tests Laboratory* Urinalysis 12/22/20 * Urine Culture 12/22/20 Radiology* IR Neph Cath-Neph Ureter W/Guide Left 01/29/22 * US Renal 12/27/20 [facility] 02-18-2022 Hospital Discharge instructions Patient Education 12/21/2021 11:35:22 Radiology- Procedure/Biopsy 02/16/2020 (CUSTOM) [place] Radiology Procedure/Biopsy Discharge Instructions Interventional Radiology [facility] [address] [address] Today, you had a Left Nephrostomy Tube [...] 1 to 2 days following the procedure. Wzev-tbn-tglljwg pain medication should be used for pain [...] instruction below: 8:00 am- 5:00 pm call [phone] After 5:00 pm call [phone] After 24 hours, contact the physician who [...] with primary care provider Address:Unknown When: Unknown [facility] 09-11-2021 NoteSend Summary: Discharge Summary Providers: Provider [...] at Discharge: .Home Vital Signs: T PRBPSpO2 Value36.07439514/78239% Date/Time07/14 8: 8: 8: 8: 8:43 Range(36.8C [...] Follow up Scheduled Date/Time: 09-Aug-2021 11:10 Location: [place] [address], [address], [place] [address] Discharge Medications: Home Medication sulfamethoxazole-trimethoprim 800 mg-160 mg oral tablet - 1 tab(s) orally every 12 hours PRN Medication LORazepam 1 mg oral tablet - 1 tab(s) orally 3 times a day, As Needed Electronic Signatures: Shira Teran) (Signed 19-Jul-2021 12:33) Authored: Send Summary, Summary Content, Ongoing Care, Note Completion Last Updated: 19-Jul-2021 12:33 by Shira Teran)[facility]09-09-2021 NoteHistory of Present Illness: HPI: [...] As Needed. Objective: Objective Information: T PRBPSpO2 [id number]/47722% Date/Time07/12 0: 0: 0: 0: 0:17 Range(36.4C [...] Reference Range: STRAW,YELLOW Appearance, Urine HAZY Specific [place], Urine 1.010 pH, Urine 6.0 Protein, Urine [...] Authorization (EUA) and has been verified by [facility] ([facility]). This test is only authorized for the duration of time korin Date of Symptom Onset [id number] Culture, Blood Trending View [id number] 14:43:00 11-Jul-2021 14:42:00 Culture, BloodNEGATIVE TO DATE, [...] Lymphocyte Count 2.39 Monocyt (more content not included)...[facility]09-09-2021 Hospital Discharge instructions* Vascular Access Port: [id number] Access Port: right chestVascular Access Port: top entry * Activity:activity as tolerated. * Follow Up Appointment 1:Physician/Dept/Service: Dr Polo Harden for Referral: Follow upScheduled Date/Time: 09-Aug-2021 11:10Location: [facility], [address] [place] [address], [address], [place], [place] [address]Phone Number: [phone] [facility]08-30-2021 NotePre-procedure Verification and Time Out: [...] normal anatomy Procedure performed by: Dr. Munoz Hardening Machine Operator Helper(s): Arie Esqueda (resident) Estimated Blood Loss (mL): [...] Completion Last Updated: 02-Jul-2021 15:23 by Rohith Munoz)[facility] Author Jatin Garcia [facility] Note Date/Time April 09, 2025 2:44a m [facility] Medical Records Department [address] [place] [address] Emergency Department Summary 04/09/25 MR#: [id number] Acct: [id number] Name: LALY NAVAS Rep #:[id number] : 1990 34 From: Jatin Garcia MD [...] has been doing but the pain is qhf-ox-yuyyemi and she is feeling very nauseated and does not want to waste her pain management prescription by vomiting it up. She denies any fevers or chills. No dysuria orhematuria. She has been on antibiotics for several weeks, currently on Bactrim,and states that she was admitted to [facility] where her oncologist and urologist are, she [...] has known about those issues for years. [facility] Medical History Nephrostomy present Kidney failure [...] % (Auto) 54.6 Lymph % (Auto) 32.0 [place] % (Auto) 8.9 Eos % (Auto) 3.2 [...] Clarity Clear Urine pH 6.[address] [place] 1.010 Urine Protein Negative Urine Glucose (UA) [...] Staff - Active Staff] - Print Language: Macanese Disposition Disposition: Home, Self Care What to do if you have Problems For any increased pain, shortness of breath, bleeding, nausea or vomiting, chestpain, or any unexpected problems, contact your Primary Care Provider. Call [facility] ([phone]) or report to the closest Emergency Room. Call 911 if necessary. 04/09/25 0244 <Electronically signed by Jatin Garcia MD> Cosigner Signature (if applicable): CC: OLE PACE ~ Signed [facility] Work Phone: Evaluation + Plan note Future Appointments Appointment Date:11/22/2021 03:40:00 PM Scheduled Provider:FLIP MARTIN MD Location[facility] Appointment Type:SO OV Follow Up Future Scheduled Tests Laboratory* Urinalysis 12/22/20 * Urine Culture 12/22/20 * Complete Blood Count 08/30/20 * Complete Metabolic Panel 08/30/20 Radiology* XR Abdomen AP 11/09/20 * IR Nephrostomy Tube Change Lt Guide 08/31/20 * US Renal 12/27/20 * IR Nephrostomy Tube Remove Lt Guide 09/06/20 [facility] Evaluation + Plan note Future Appointments Appointment Date:03/26/2022 01:00:00 PM Scheduled Provider: Location:IR Appointment Type:IR Neph Cath-Neph Ureter W/Guide Left Appointment Date:05/30/2022 02:50:00 PM Scheduled Provider:FLIP MARTIN MD Location:[facility] Appointment Type:SO OV Follow Up Future Scheduled Tests Radiology* IR Neph Cath-Neph Ureter W/Guide Left 03/26/22 [facility] evaluation + Plan note Future Appointments Appointment Date:05/23/2022 11:00:00 AM Scheduled Provider: Location:IR Appointment Type:IR Neph Cath-Neph Ureter W/Guide Left Appointment Date:05/30/2022 02:50:00 PM Scheduled Provider:FLIP MARTIN MD Location:[facility] Appointment Type:SO OV Follow Up Future Scheduled Tests Radiology* IR Neph Cath-Neph Ureter W/Guide Left 05/23/22 [facility] evaluation + Plan note Future Appointments Appointment Date:08/15/2022 01:00:00 PM Scheduled Provider: Location:IR Appointment Type:IR Neph Cath-Neph Ureter W/Guide Left Appointment Date:01/01/2023 11:30:00 AM Scheduled Provider:FLIP MARTIN MD Location:[facility] Appointment Type:SO OV Follow Up Diagnostic [...] IR Neph Cath-Neph Ureter W/Guide Left 08/15/22 [facility] Evaluation + Plan note Future Appointments Appointment Date:10/02/2022 11:00:00 AM Scheduled Provider: Location:IR Appointment Type:IR Neph Cath-Neph Ureter W/Guide Left Appointment Date:01/01/2023 11:30:00 AM Scheduled Provider:FLIP MARTIN MD Location:[facility] Appointment Type:SO OV Follow Up Future [...] IR Neph Cath-Neph Ureter W/Guide Left 10/02/22 [facility] Evaluation + Plan note Future Appointments Appointment Date:10/02/2022 11:00:00 AM Scheduled Provider: Location:IR Appointment Type:IR Neph Cath-Neph Ureter W/Guide Left Appointment Date:01/01/2023 11:30:00 AM Scheduled Provider:FLIP MARTIN MD Location:[facility] Appointment Type:SO OV Follow Up Diagnostic [...] IR Neph Cath-Neph Ureter W/Guide Left 10/02/22 [facility] Evaluation + Plan note Future Appointments Appointment [...] IR Neph Cath-Neph Ureter W/Guide Left 01/07/23 [facility] Evaluation + Plan note Future Appointments Appointment [...] IR Neph Cath-Neph Ureter W/Guide Left 01/07/23 [facility] Evaluation + Plan note Future Appointments Appointment Date:02/20/2023 02:50:00 PM Scheduled Provider:FLIP MARTIN MD Location:[facility] Appointment Type:SO OV Appointment Date:05/12/2023 11:00:00 [...] IR Neph Cath-Neph Ureter W/Guide Left 05/12/23 [facility] Evaluation + Plan note Future Appointments Appointment Date:06/24/2023 11:00:00 AM Scheduled Provider: Location:IR Appointment Type:IR Neph Cath-Neph Ureter W/Guide Left Appointment Date:08/20/2023 03:20:00 PM Scheduled Provider:FLIP MARTIN MD Location:[facility] Appointment Type:SO Follow Up Future Scheduled Tests Laboratory* Pathology Education Supervisor Request 05/15/23 * Urinalysis 02/14/23 Radiology* IR [...] BD Bone Density DEXA Axial Skeleton 05/15/23 [facility] Evaluation + Plan note Future Appointments Appointment Date:06/30/2023 02:00:00 PM Scheduled Provider: Location:IR Appointment Type:IR Neph Cath-Neph Ureter W/Guide Left Appointment Date:07/30/2023 11:30:00 AM Scheduled Provider:FLIP MARTIN MD Location:[facility] Appointment Type:SO OV Follow Up Future Scheduled Tests Laboratory* Pathology Education Supervisor Request 05/15/23 * Urinalysis 02/14/23 Radiology* IR [...] BD Bone Density DEXA Axial Skeleton 05/15/23 [facility] Evaluation + Plan note Future Appointments Appointment Date:07/31/2023 03:00:00 PM Scheduled Provider:OLE PACE MD Location:[facility] Appointment Type:PALL New Patient Appointment Date:09/04/2023 01:00:00 PM Scheduled Provider: Location:IR Appointment Type:IR Nephrostomy Tube Change Lt Guide Appointment Date:10/31/2023 10:00:00 AM Scheduled Provider:BRITTNI LU Location:[facility] Appointment Type:SO OV Follow Up Future Scheduled Tests Laboratory* Pathology Education Supervisor Request 05/15/23 * Urinalysis 02/14/23 Radiology* IR [...] IR Nephrostomy Tube Change Lt Guide 06/21/24 [facility] Evaluation + Plan note Future Appointments Appointment Date:09/04/2023 01:00:00 PM Scheduled Provider: Location:IR Appointment Type:IR Nephrostomy Tube Change Lt Guide Appointment Date:09/09/2023 10:30:00 AM Scheduled Provider:OLE PACE MD Location[facility] Appointment Type:PALL OV Follow Up Appointment Date:10/31/2023 10:00:00 AM Scheduled Provider:BRITTNI LU APRN-EMPLOYER RELATIONS REPRESENTATIVE Location:[facility] Appointment Type:SO OV Follow Up Future Scheduled Tests Laboratory* Pathology Education Supervisor Request 05/15/23 * Urinalysis 02/14/23 Radiology* IR [...] IR Nephrostomy Tube Change Lt Guide 06/21/24 [facility] Evaluation + Plan note Future Appointments Appointment Date:10/14/2023 01:00:00 PM Scheduled Provider:OLE PACE MD Location:[facility] Appointment Type:PALL OV Follow Up Appointment Date:10/31/2023 10:00:00 AM Scheduled Provider:BRITTNI LU Location:[facility] Appointment Type:SO OV Follow Up Future Scheduled Tests Laboratory* Urinalysis 02/14/23 Radiology* IR Neph Cath-Neph Ureter W/Guide Left 06/30/23 * IR Nephrostomy Tube Change Lt Guide 09/04/23 [facility] evaluation + Plan note Future Appointments Appointment Date:12/03/2023 11:00:00 AM Scheduled Provider: Location:IR Appointment Type:IR Nephrostomy Exchange Appointment Date:12/08/2023 03:00:00 PM Scheduled Provider:OLE PACE MD Location:[facility] Appointment Type:PALL OV Follow Up Appointment Date:12/08/2023 03:40:00 PM Scheduled Provider:BRITTNI LU Location:[facility] Appointment Type:SO OV Future Scheduled Tests Laboratory* Urinalysis 02/14/23 Radiology* IR Nephrostomy Exchange 12/03/23 * IR Neph Cath-Neph Ureter W/Guide Left 06/30/23 * IR Nephrostomy Tube Change Lt Guide 09/04/23 [facility] evaluation + Plan note Future Appointments Appointment Date:01/06/2024 10:30:00 AM Scheduled Provider:OLE PACE MD Location:[facility] Appointment Type:PALL OV Follow Up Appointment Date:01/14/2024 10:00:00 AM Scheduled Provider: Location:IR Appointment Type:IR Nephrostomy Exchange Appointment Date:04/07/2024 03:20:00 PM Scheduled Provider:BRITTNI LU Location[facility] Appointment Type:SO OV Follow Up Future Scheduled Tests Laboratory* Pathology Education Supervisor Request 12/08/23 * Urinalysis 02/14/23 Radiology* IR Nephrostomy Exchange 01/14/24 * IR Neph Cath-Neph Ureter W/Guide Left 06/30/23 * IR Nephrostomy Tube Change Lt Guide 09/04/23 [facility] evaluation + Plan note Future Appointments Appointment Date:01/14/2024 10:00:00 AM Scheduled Provider: Location:IR Appointment Type:IR Nephrostomy Exchange Appointment Date:02/03/2024 10:30:00 AM Scheduled Provider:OLE PACE MD Location:[facility] Appointment Type:PALL OV Follow Up Appointment Date:04/07/2024 03:20:00 PM Scheduled Provider:BRITTNI LU Location:[facility] Appointment Type:SO OV Follow Up Future Scheduled Tests Laboratory* Urinalysis 02/14/23 Radiology* IR Nephrostomy Exchange 01/14/24 * IR Neph Cath-Neph Ureter W/Guide Left 06/30/23 * IR Nephrostomy Tube Change Lt Guide 09/04/23 [facility] evaluation + Plan note Future Appointments Appointment Date:04/01/2024 11:00:00 AM Scheduled Provider:OLE PACE MD Location:[facility] Appointment Type:PALL OV Follow Up Appointment Date:04/07/2024 03:20:00 PM Scheduled Provider: Location:[facility] Appointment Type:SO OV Follow Up Future Scheduled Tests Laboratory* Clostridium difficile (PCR) 03/04/24 * Ova + Parasite Exam 03/04/24 Radiology* IR Nephrostomy Tube Change Lt Guide 09/04/23 [facility] evaluation + Plan note Future Appointments Appointment Date:03/14/2025 01:30:00 PM Scheduled Provider:OLE PACE MD Location:[facility] Appointment Type:PALL OV Follow Up Appointment Date:03/30/2025 10:40:00 AM Scheduled Provider:GONZALEZ SANDERS MD Location:UROLOGY Appointment Type:URO OV Appointment Date:04/13/2025 01:00:00 PM Scheduled Provider: Location:IR Appointment Type:IR Nephrostomy Exchange Appointment Date:05/18/2025 11:20:00 AM Scheduled Provider: Location:[facility] Appointment Type:SO OV Follow Up Future Scheduled Tests Laboratory* hCG, quantitative (AH/AM Only) 11/15/24 Radiology* IR Nephrostomy Exchange 04/13/25 * IR Nephrostomy Exchange 12/30/24 * CT Renal 03/08/25 * NM Kidney Diuretic 03/08/25 [facility] evaluation + Plan note Future Appointments Appointment Date:03/30/2025 10:40:00 AM Scheduled Provider:GONZALEZ SANDERS MD Location:UROLOGY Appointment Type:URO OV Appointment Date:03/30/2025 11:30:00 AM Scheduled Provider:OLE PACE MD Location:[facility] Appointment Type:PALL OV Follow Up Appointment Date:04/13/2025 01:00:00 PM Scheduled Provider: Location:IR Appointment Type:IR Nephrostomy Exchange Appointment Date:05/18/2025 11:20:00 AM Scheduled Provider: Location:[facility] Appointment Type:SO OV Follow Up Future Scheduled Tests Laboratory* hCG, quantitative (AH/AM Only) 11/15/24 Radiology* IR Nephrostomy Exchange 04/13/25 * IR Nephrostomy Exchange 12/30/24 * CT Renal 03/08/25 * NM Kidney Diuretic 03/08/25 [facility] evaluation + Plan note Future Appointments Appointment Date:04/13/2025 01:00:00 PM Scheduled Provider: Location:IR Appointment Type:IR Nephrostomy Exchange Appointment Date:05/18/2025 11:20:00 AM Scheduled Provider: Location:[facility] Appointment Type:SO OV Follow Up Future Scheduled Tests Laboratory* hCG, quantitative (AH/AM Only) 11/15/24 Radiology* IR Nephrostomy Exchange 04/13/25 * IR Nephrostomy Exchange 12/30/24 * CT Renal 03/08/25 * NM Kidney Diuretic 03/08/25 * NM Kidney Diuretic 03/30/25 [facility] evaluation + Plan note Future Appointments Appointment Date:04/12/2025 08:30:00 AM Scheduled Provider: Location:[facility] Appointment Type:NM Kidney Diuretic Appointment Date:04/13/2025 01:00:00 PM Scheduled Provider: Location:IR Appointment Type:IR Nephrostomy Exchange Appointment Date:05/11/2025 11:00:00 AM Scheduled Provider:OLE PACE MD Location:[facility] Appointment Type:PALL OV Follow Up Appointment Date:05/18/2025 11:20:00 AM Scheduled Provider: Location:[facility] Appointment Type:SO OV Follow Up Future Scheduled Tests Laboratory* hCG, quantitative (AH/AM Only) 11/15/24 Radiology* IR Nephrostomy Exchange 04/13/25 * IR Nephrostomy Exchange 12/30/24 * CT Renal 03/08/25 * NM Kidney Diuretic 03/08/25 * NM Kidney Diuretic 04/12/25 [facility] evaluation + Plan note Future Appointments Appointment Date:05/11/2025 11:00:00 AM Scheduled Provider:OLE PACE MD Location:[facility] Appointment Type:PALL OV Follow Up Appointment Date:05/18/2025 11:20:00 AM Scheduled Provider: Location:[facility] Appointment Type:SO OV Follow Up Future Scheduled Tests Laboratory* hCG, quantitative (AH/AM Only) 11/15/24 Radiology* IR Nephrostomy Exchange 12/30/24 * CT Renal 03/08/25 * NM Kidney Diuretic 03/08/25 * NM Kidney Diuretic 04/12/25 [facility] Evaluation + Plan note Future Appointments Appointment Date:05/11/2025 11:00:00 AM Scheduled Provider:OLE PACE MD Location:[facility] Appointment Type:PALL OV Follow Up Appointment Date:05/18/2025 11:20:00 AM Scheduled Provider: Location:[facility] Appointment Type:SO OV Follow Up Appointment Date:05/19/2025 01:00:00 PM Scheduled Provider: Location:IR Appointment Type:IR Nephrostomy Exchange Future Scheduled Tests Laboratory* hCG, quantitative (AH/AM Only) 11/15/24 Radiology* IR Nephrostomy Exchange 05/19/25 * IR Nephrostomy Exchange 12/30/24 * CT Renal 03/08/25 * NM Kidney Diuretic 03/08/25 * NM Kidney Diuretic 04/12/25 [facility] Evaluation + Plan note Future Appointments Appointment Date:06/08/2025 11:30:00 AM Scheduled Provider:OLE PACE MD Location:[facility] Appointment Type:PALL OV Follow Up Appointment Date:06/29/2025 08:00:00 AM Scheduled Provider: Location:IR Appointment Type:IR Nephrostomy Exchange Future Scheduled Tests Laboratory* hCG, quantitative (AH/AM Only) 11/15/24 Radiology* IR Nephrostomy Exchange 06/29/25 * IR Nephrostomy Exchange 12/30/24 * CT Renal 03/08/25 * NM Kidney Diuretic 03/08/25 * NM Kidney Diuretic 04/12/25 [facility] evaluation note* Respiratory/Thorax: Patent airways, CTAB, normal breath [...] senses, motor, response and reflexes, normal strength [facility] information available [facility] Work Phone: Hospital course Narrative No data available for this section [facility] Hospital Discharge instructions No data available for this section [facility] Hospital Discharge instructionsAdditional Instructions Your urine does have some subtle signs of infection versus chronic colonization from the nephrostomy tube. Out of abundance of caution we will put you on antibiotics for this. A culture was sent. Your lab work otherwise normal. I do not think you have malpositioning of your nephrostomy tube. Please continue to [facility]-up [facility] Follow-up with your main doctor for discussion of further pain management.[facility] Work Phone: Hospital Discharge instructionsAdditional Instructions Continue your antibiotic. Continue home pain medicine and nausea medicine as needed. As noted multiple small kidney stones with a left side near bladder. Follow-up with your urologist.[facility] Work Phone: Progress note No data available for this section [facility] Reason for referral (narrative)No reason for referral information availableWGreen [facility] Work Phone: Summary note* Cierra Adamson N: PERFORM Event Display: Patient Summary Documents Authored Date: [id number] [facility] Summary Purpose Family History No Family History [...] Do you have a Healthcare Power of Automotive Exhaust Emissions Technician? No April 09, 2025 12:20am Advance Directive Response Recorded Date/ Time Do you have a Healthcare Power of Automotive Exhaust Emissions Technician? No June 02, 2025 12:13am Do you have a Healthcare Power of Automotive Exhaust Emissions Technician? No April 09, 2025 12:20am Advance Directive Response Recorded Date/ Time Do you have a Healthcare Power of Automotive Exhaust Emissions Technician? No June 02, 2025 12:13am Do you have a Healthcare Power of Automotive Exhaust Emissions Technician? No June 03, 2025 11:33pm Do you have a Healthcare Power of Automotive Exhaust Emissions Technician? No April 09, 2025 12:20am Advance Directive Response Recorded Date/ Time Do you have a Healthcare Power of Automotive Exhaust Emissions Technician? No June 02, 2025 12:13am Do you have a Healthcare Power of Automotive Exhaust Emissions Technician? No June 03, 2025 11:33pm Do you have a Healthcare Power of Automotive Exhaust Emissions Technician? No June 04, 2025 11:57pm Do you have a Healthcare Power of Automotive Exhaust Emissions Technician? No April 09, 2025 12:20am Chief Complaint [...] flank pain June 03, 2025 11 :27pm Chief Complaint Admit Date KIDNEY STONES April 09, 2025 12:20 am PAIN June 01, 2025 11:5 4pm abd pain, flank pain June 03, 2025 11 :27pm flank pain June 04, 2025 11: 53pm Additional Source Comments INFORMATION SOURCE (unrecogn ized section and content) DATE CREATED AUTHOR 05/23/2020 [facility] DATE CREATED AUTHOR AUTHOR'S ORGANIZ ATION 10/25/2020 [facility] DATE CREATED AUTHOR AUTHOR'S ORGANIZ ATION 08/11/2021 [employer] DATE CREATED AUTHOR AUTHOR'S ORGANIZ ATION 08/29/2021 [facility] DATE CREATED AUTHOR AUTHOR'S ORGANIZ ATION 06/25/2024 [facility] ([place]) DATE CREATED AUTHOR AUTHOR'S ORGANIZ ATION 05/21/2025 [facility] DATE CREATED AUTHOR AUTHOR'S ORGANIZ ATION 06/04/2025 [facility] DATE CREATED AUTHOR AUTHOR'S ORGANIZ ATION 06/06/2025 [facility] DATE CREATED AUTHOR AUTHOR'S ORGANIZ ATION 06/07/2025 [facility] <item> Privacy Markings (unrecogniz ed section [...] April 09, 2025 End: April 09, 2025 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 Yeison Webber DO Emergency Provider Active Start : June 04, 2025 End: June 05, 2025 SANJEEV WAGNER Primary Care Provider Active St art: June 04, 2025 End: June 05, 2025 Care Team (unrecognized sect ion and content) Care Team Personnel Name: Pari Brice Position: Quality Review Member Role: Tractor Operator Laser Leveling Name: FLIP MARTIN MD Position: P4 Oncology Provider Member Role: Primary Care Physician Address: Address: [address] [place] [address] [place] [address] Name: Maryann Mae RN Position: [facility] Member Role: Palliative Care Team Related Persons Name: HAM GRISSOM Name: JESSICA NAVAS Name: ZANDRA ALCANTARA Name: AUSTIN HADDAD Care Team Personnel Name: Pari Brice Position: Quality Review Member Role: Tractor Operator Laser Leveling Name: FLIP MARTIN MD Position: P4 Oncology Provider Med Service: DEPUTY SHERIFF CUSTODY-ONC Infusion Therapy Member Role: Primary Care Physician Address: Address: [address] [place] [address] Gy[address] On[address] Name: FLIP MARTIN MD Position: P4 Oncology Provider Med Service: DEPUTY SHERIFF CUSTODY-ONC Infusion Therapy Member Role: Primary Care Physician Address: Address: [address] [place] [address] Gynec[facility] On[address] Name: Maryann Mae RN Position: [facility] Med Service: Palliative Care Member Role: Palliative Care Team Related Persons Name: HAM GRISSOM Name: JESSICA NAVAS Name: ZANDRA ALCANTARA Name: AUSTIN HADDAD Care Team Personnel Name: Pari Brice Position: Quality Review Member Role: Tractor Operator Laser Leveling Name: FLIP MARTIN MD Position: Oncology Provider Med Service: DEPUTY SHERIFF CUSTODY-ONC Infusion Therapy Member Role: Primary Care Physician Address: Address: [address] [place] [address] Gynecologic Oncology [place], [address] Name: FLIP MARTIN MD Position: P4 Oncology Provider Med Service: DEPUTY SHERIFF CUSTODY-ONC Infusion Therapy Member Role: Primary Care Physician Address: Address: [address] [place] [address] Gynec[facility] Oncology [place], [address] Name: Maryann Mae RN Position: [facility] Med Service: Palliative Care Member Role: Palliative Care Team Related Persons Name: HAM GRISSOM Name: JESSICA NAVAS Name: ZANDRA ALCANTARA Name: AUSTIN HADDAD Care Team Personnel Name: Pari Brice Position: Quality Review Member Role: Tractor Operator Laser Leveling Name: FLIP MARTIN MD Position: P4 Oncology Provider Member Role: Primary Care Physician Address: Address: [address] [place] [address] Gynec[facility] On[address] Name: Maryann Mae RN Position: [facility] Member Role: Palliative Care Team Related Persons Name: HAM GRISSOM Name: JESSICA NAVAS Name: ZANDRA ALCANTARA Name: AUSTIN HADDAD Care Team Personnel Name: FLIP MARTIN MD Position: P4 Oncology Provider Member Role: Primary Care Physician Address: Address: [address] [place] [address] Gynec[facility] On[address] Name: Maryann Mae RN Position: [facility] Member Role: Palliative Care Team Related Persons Name: HAM GRISSOM Name: JESSICA NAVAS Name: ZANDRA ALCANTARA Name: AUSTIN HADDAD Care Team Personnel Name: Pari Brice Position: Quality Review Member Role: Tractor Operator Laser Leveling Name: FLIP MARTIN MD Position: P4 Oncology Provider Member Role: Primary Care Physician Address: Address: [address] [place] [address] Gynecologic On[address] Name: Maryann Mae RN Position: [facility] Member Role: Palliative Care Team Related Persons Name: HAM GRISSOM Name: JESSICA NAVAS Name: ZANDRA ALCANTARA Name: AUSTIN HADDAD Care Team Personnel Name: Pari Brice Position: Quality Review Member Role: Tractor Operator Laser Leveling Name: FLIP MARTIN MD Position: P4 Oncology Provider Member Role: Primary Care Physician Address: Address: [address] [place] [address] Gynec[facility] On[address] Name: Maryann Mae RN Position: [facility] Member Role: Palliative Care Team Related Persons Name: HAM GRISSOM Name: JESSICA NAVAS Name: ZANDRA ALCANTARA Name: AUSTIN HADDAD Care Team Personnel Name: Pari Brice Position: Quality Review Member Role: Tractor Operator Laser Leveling Name: FLIP MARTIN MD Position: P4 Oncology Provider Member Role: Primary Care Physician Address: Address: [address] [place] [address] Gynecologic Oncology [address] Name: Maryann Mae RN Position: [facility] Member Role: Palliative Care Team Related Persons Name: HAM GRISSOM Name: JESSICA NAVAS Name: ZANDRA ALCANTARA Name: AUSTIN HADDAD Care Team Personnel Name: Pari Brice Position: Quality Review Member Role: Tractor Operator Laser Leveling Name: FLIP MARTIN MD Position: Oncology Provider Member Role: Primary Care Physician Address: Address: [address] [place] [address] Gynec[facility] On[address] Name: Maryann Mae RN Position: [facility] Member Role: Palliative Care Team Related Persons Name: HAM GRISSOM Name: ANTONELLAJESSICA Name: ZANDRA ALCANTARA Name: AUSTIN HADDAD Goals [...] BE BASED ON THE PRIMARY CLINICAL RECORDS. [employer] provides no warranty or guarantee of the accuracy or completeness of information in this document.
[2025-06-07] MEDS: 0.9% Normal Saline (1000mL) 1,000 ML 999 ML IV (01:08)
[2025-06-07 01:11] LABS: Hematocrit 35.4 % (37-47); Hemoglobin 11.8 g/dL (12.0-15.0); Immature Granulocytes Count 0.040 X10^3/uL (0.0-0.0); Mean Corp Hgb Conc 33.3 g/dL (32-36); Mean Corpuscular Volume 97.0 fL (81-99); Mean Platelet Vol. 9.0 fl (6.2-12.0); NRBC Flagged by Analyzer 0 % (0-5); Platelet Count 351 K/mm3 (150-450); RBC Distribution Width CV 15.0 % (11.6-14.6); RBC Distribution Width SD 53.6 fl (35.1-43.9); Red Blood Count 3.65 M/mm3 (4.2-5.4); White Blood Count 9.6 K/mm3 (4.4-11.0)
[2025-06-07 01:16] VITALS: BP 95/67; PULSE 89; RESP 18; TEMP 36.6; O2SAT 96
--- NOTE | 2025-06-07 01:25 | EX.ED.DYSGE1 ---
HPI History of Present Illness Chief Complaint: Flank Pain Informant: patient Narrative Narrative: Patient is a 34-year-old female with past medical history of cervical cancer which led to removal of her right kidney and need for nephrostomy tube in the left. This is her fourth ER visit in 6 days secondary to left-sided abdominal discomfort with bouts of nausea and vomiting. Patient states that she is scheduled to see her urologist/surgeon in roughly 24 hours on Friday, June 08. She states she is taking her normal home medications which include Lexapro Ativan and oxycodone. However she states that she has been unable to hold the medication down despite trying Zofran. The patient states she has not had fever but she is concerned she could be becoming septic based on her recurrent symptoms and therefore comes in for reevaluation. [facility] Medical History (Updated 06/07/25 @ 02:[address] Marco Elmore, DO) History of MDR Pseudomonas aeruginosa infection Nephrostomy present Kidney failure Kidney stone Cervical cancer Home Medications ?Medication ?Instructions ?Recorded ?Last Taken ?Type escitalopram oxalate 20 mg tablet 20 mg PO DAILY 04/09/25 Unknown History (Lexapro) lorazepam 1 mg tablet (Ativan) 1 mg PO Q8H PRN anxiety 04/09/25 06/03/25 06:00 History ondansetron HCl 4 mg tablet 4 mg PO Q6H PRN nausea and vomiting 04/09/25 Unknown History oxycodone 5 mg tablet 10 mg PO Q6H PRN pain 04/09/25 06/03/25 06:00 History cefdinir 300 mg capsule 300 mg PO Q12H #14 caps 06/04/25 Unknown Rx ondansetron 4 mg disintegrating 4 mg PO Q8H PRN PRN Nausea #10 tabs 06/04/25 Unknown Rx tablet ciprofloxacin HCl 500 mg tablet 500 mg PO BID 7 days #14 tabs 06/07/25 Unknown Rx (Cipro) promethazine 25 mg tablet 25 mg PO TID PRN nausea and 06/07/25 Unknown Rx vomiting #21 tabs Allergy/AdvReac Type Severity Reaction Status Date / Time haloperidol (From Haldol) Allergy Angioedema Verified 06/07/25 00:21 Penicillins (PCN) Allergy Hives Verified 06/07/25 00:21 Social History Smoking Status: Current every day smoker tobacco type: cigarettes and e-cigarettes ROS ROS ED Constitutional Constitutional ED: Denies chills or fever(s) ENT ENT ED: Denies sore throat Cardiovascular Cardiovascular: Denies chest pain Respiratory/Chest Respiratory/Chest: Denies cough or dyspnea Gastrointestinal Gastrointestinal: Reports abdominal pain, nausea and vomiting; Denies diarrhea Genitourinary Genitourinary ED: Reports dysuria Musculoskeletal Musculoskeletal: Reports back pain Integumentary Denies rash Neurologic Neurologic: Reports weakness; Denies headache(s) Hematologic/Lymphatic Hematologic/Lymphatic: Denies easy bleeding or easy bruising EXAM Physical Exam Const Vital Signs: 06/07/25 00:20 06/07/25 01:16 06/07/25 01:59 Temperature 97.7 F L 97.9 F 97.8 F Temperature Source Oral Oral Oral Pulse Rate 100 89 73 Respiratory Rate 18 18 18 Blood Pressure 121/80 H 95/67 105/75 Blood Pressure Mean 93 76 85 Pulse Ox 100 96 99 Oxygen Delivery Method Room Air Room Air Room Air Positive well nourished and well developed General Appearance ED: well developed; Negative for pallor HEENT Reports dry mucous membranes HEENT Narrative: Normocephalic atraumatic No tongue or lip swelling no oral lesions no airway edema or compromise; no secondary findings in the posterior pharynx to suggest infection Mucous membranes are dry and tacky Mouth ED: Yes dry mucous membranes Mouth: dry mucous membranes Eyes PERRL and EOMs intact bilaterally General Eye ED: Negative for scleral icterus Neck supple Neck Narrative: No nuchal rigidity or meningeal signs Resp normal respiratory effort and clear to auscultation bilaterally Cardio regular rate and regular rhythm GI non-distended and no masses GI Narrative: Abdomen is soft and nondistended with hypoactive bowel sounds. There is lower and left-sided abdominal pain with palpation without voluntary guarding or rigidity. No pulsatile mass or fluid wave noted Auscultation: hypoactive bowel sounds Palpation: soft Back/Spine Back/Spine Narrative: Nephrostomy tube entering the left flank region is noted without surrounding secondary findings to suggest infection Extremity normal to inspection Neuro oriented x3, CN's II-XII intact bilaterally and no sensory deficits noted Sensorium / Orientation: alert Motor Exam: strength 5/5 throughout Psych mental status grossly normal Skin no rashes or lesions noted, no wounds and No skin turgor normal Skin Narrative: Skin turgor is slightly increased General Skin Exam: Negative for jaundice or pallor MDM MDM MDM Narrative Medical decision making narrative: Patient arrived to the ER with stable vitals. She reports she has an appointment with her specialist in roughly 24 hours but as she cannot keep her normal medication down presents for reevaluation and states she also is concerned that the infection could be progressing to sepsis. The patient's recent ER charts were reviewed as well as the recent CT scan and microbiology profile. The patient's urine sample from the nephrostomy tube and clean-catch urine both grew out multidrug-resistant Pseudomonas. However it does show that it is sensitive to ciprofloxacin for each sample. The patient was recently placed on cefdinir and given Rocephin in the ER. Based on the fact that the third-generation cephalosporin is not listed as a sensitivity I have high concern that it is not helping with the infection at all. In order to rule out acute kidney injury and urosepsis blood work was obtained. Patient's white count has remained normal at approximately 10 and neutrophil count has also remained normal at approximately 5.5 indicating she does not have systemic infection. Previous CT scan did show irritation along the left ureter consistent with potential infection and it did show kidney stones on that side. However her lab work shows no sign of LOAN. Therefore I do not feel there is need for an emergent urology consultation. At this time the patient will be given IV Cipro as urine cultures show that it will work on the Pseudomonas. But as she is normotensive afebrile without leukocytosis or left shift or LOAN I do not feel there is need for transfer. I did discuss this with the patient as she has had multiple visits within the last week. She states however that as we have ruled out sepsis based on her vitals and labs and that she is scheduled to see the specialist in roughly 1 day she does not feel the need for transfer. Therefore this time as she is had improvement of her pain with medication provided in the ER will now be placed on culture specific antibiotic and has no signs of urosepsis or LOAN she can be discharged home with follow-up as an outpatient History & Record Review Discussion w/independent historian: Patient Lab Data Attestation: I reviewed the patient's lab results. Labs: Laboratory Results - last 24 hr 06/07/25 01:00 WBC 9.6 RBC 3.65 L Hgb 11.8 L Hct 35.4 L MCV 97.0 MCH 32.3 H MCHC 33.3 RDW Std Deviation 53.6 H RDW Coeff of Bereket 15.0 H Plt Count 351 MPV 9.0 Immature Gran % (Auto) 0.400 Neut % (Auto) 58.5 Lymph % (Auto) 31.3 Dyer % (Auto) 7.1 Eos % (Auto) 1.7 Baso % (Auto) 1.0 Absolute Neuts (auto) 5.6 Absolute Lymphs (auto) 3.01 Nucleated RBC % 0 Sodium 141 Potassium 3.2 L Chloride 104 Carbon Dioxide 23.8 Anion Gap 14 BUN 7 Creatinine 1.03 Estim Creat Clear Calc 66.56 Est GFR (MDRD) Non-Af 72 BUN/Creatinine Ratio 6.7 L Glucose 99 Lactic Acid 2.4 H* Calcium 9.1 Discharge Plan Triage Chief Complaint: Flank Pain ED Provider: Marco Elmore Dx/Rx/DC Orders Clinical Impression: Kidney stone on left side, UTI (urinary tract infection), H/O insertion of nephrostomy tube, Nausea and vomiting, History of cervical cancer Instructions: UTIs, ED Kidney Stone with Pain Prescriptions: New ciprofloxacin HCl [Cipro] 500 mg tablet 500 mg PO BID 7 Days Qty: 14 0RF promethazine 25 mg tablet 25 mg PO TID PRN (Reason: nausea and vomiting) Qty: 21 0RF No Action ondansetron 4 mg tablet,disintegrating 4 mg PO Q8H PRN PRN (Reason: Nausea) Qty: 10 0RF cefdinir 300 mg capsule 300 mg PO Q12H Qty: 14 0RF oxycodone 5 mg tablet 10 mg PO Q6H PRN (Reason: pain) lorazepam [Ativan] 1 mg tablet 1 mg PO Q8H PRN (Reason: anxiety) escitalopram oxalate [Lexapro] 20 mg tablet 20 mg PO DAILY ondansetron HCl 4 mg tablet 4 mg PO Q6H PRN (Reason: nausea and vomiting) Primary Care Provider: [facility] Referrals: [facility] [Other] Activity Restrictions/Additional Instructions: Please stop the cefdinir you are prescribed at your last ER visit as urine culture shows that this will most likely not treat the infection. Please begin the ciprofloxacin which was prescribed at this ER visit. Continue all of your other home medication as directed by your doctor and add the Phenergan/promethazine if there is a need for improved nausea and vomiting control. Keep the appointment with your urologist/surgeon for tomorrow Friday, June 08 and return to the ER should you have any further concerns Print Language: Uzbek Disposition Disposition: Home, Self Care
[2025-06-07 01:55] LABS: Anion Gap 14 (5-15); BUN 7 mg/dL (4-19); BUN/Creat Ratio 6.7 RATIO (10-20); Calcium,Total 9.1 mg/dL (7.6-11.0); Carbon Dioxide 23.8 mmol/L (21.0-32.0); Chloride 104 mmol/L (98-108); Estimated Creatinine Clearance 66.56 ml/min (50-250); Glucose 99 mg/dL (70-99); Potassium 3.2 mmol/L (3.3-5.1)
[2025-06-07 01:59] VITALS: BP 105/75; PULSE 73; RESP 18; TEMP 36.6; O2SAT 99
[2025-06-07 02:31] VITALS: BP 112/88; PULSE 63; RESP 16; TEMP 36.3; O2SAT 100
--- NOTE | 2025-06-07 02:42 | ED.RN ---
Pt requesting to be discharged before iv bolus infused. need for iv fluids explained and still requesting to leave. pt received 500cc ns bolus.
[2025-06-07 05:08] LABS: Reflex Lactate? Y
== END 2025-06-07 02:43 | disposition home or self-care (01) ==
PROVIDERS: Emergency Provider Emergency Medicine; Visit Provider Emergency Medicine
DX: N20.0 Calculus of kidney (principal); Z93.6 Other artificial openings of urinary tract status; N39.0 Urinary tract infection, site not specified; B96.5 Pseudomonas (aeruginosa) (mallei) (pseudomallei) as the cause of diseases classified elsewhere; R11.2 Nausea with vomiting, unspecified; Z85.41 Personal history of malignant neoplasm of cervix uteri; Z79.899 Other long term (current) drug therapy; F17.210 Nicotine dependence, cigarettes, uncomplicated; F17.290 Nicotine dependence, other tobacco product, uncomplicated
CPT/HCPCS: 80048; 83605; 85025; 96365; 96374; 99283; A4216; J0744

== ENCOUNTER 2025-07-31 01:39 | Emergency (ER) | payer MEDICARE, SELFPAY ==
--- OUTSIDE RECORDS SUMMARY | 2025-07-26 16:54 | XMS RPT_ITS ---
[...] [address] [place], [place] [phone] + BRIJESH MOCTEZUMA Next of Kin Unknown + ~ ([phone] NOT GIVEN Next of Kin Unknown Unavailable HADDADHAFSAA Next of Kin [address] [place], [place] [phone] + NOT GIVEN Next of Kin Unknown Unavailable HADDAD, [place] Next of Kin [address] [place], [place] [phone] + NOT GIVEN Next of Kin Unknown Unavailable HADDAD, [place] Next of Kin [address] [place], [place] [phone] + BRIJESH MOCTEZUMA Next of Kin Unknown + ~ (330 NOT GIVEN Next of Kin Unknown Unavailable HADDADHAFSAA Next of Kin [address] [place] [id number] + BRIJESH MOCTEZUMA Next of Kin Unknown [...] [address] [place], [place] [phone] + BRIJESH MOCTEZUMA Next of Kin Unknown + ~ (330 NOT GIVEN Next of Kin Unknown Unavailable HADDADJONATHONAUSTIN Next of Kin [address] [place], [place] [phone] + NOT GIVEN Next of Kin Unknown Unavailable HADDAD, [place] Next of Kin [address] [place], [place] [phone] + HAM GRISSOM Next of Kin Unknown [...] [address] [place], [place] [phone] + NOT GIVEN Next of Kin Unknown Unavailable [place] HADDAD Next of Kin [address] [place], [place] [phone] + HAM GRISSOM Next of Kin Unknown [...] [address] [place], [place] [phone] + ANTONELLA, DON Next of Kin Unknown + ANTONELLA, DON Next of Kin Unknown + ANTONELLA, DON Next of Kin Unknown + ANTONELLA, DON Next of Kin Unknown + NOT GIVEN Next of Kin Unknown Unavailable [place] HADDAD Next of Kin [address] [facility], [place] [phone] + HAM GRISSOM Next of Kin Unknown [phone] ANTONELLA, DON Next of Kin Unknown + ANTONELLA, DON Next of Kin Unknown + ANTONELLA, JESSICA Next of Kin Unknown [phone] DOTVALENTÍN CONWAY Next of Kin Unknown [phone] NOT GIVEN Next of Kin Unknown Unavailable [place] HADDAD Next of Kin [address] [facility], [place] [phone] + NOT GIVEN Next of Kin Unknown Unavailable [place] HADDAD Next of Kin [address] [facility], [place] [phone] + ANTONELLA, DON Next of Kin Unknown [...] [place] HADDAD Next of Kin [address] [facility], [place] [phone] + ANTONELLA, DON Next of Kin Unknown + ANTONELLA, DON Next of Kin Unknown + NOT GIVEN Next of Kin Unknown Unavailable [place] HADDAD Next of Kin [address] [facility], [place] [phone] + NOT GIVEN Next of Kin Unknown Unavailable [place] HADDAD Next of Kin [address] [facility], [place] [phone] + ANTONELLA, DON Next of Kin Unknown [...] [address] [facility], [place] [phone] + ANTONELLA, DON Next of Kin Unknown [...] of Kin [address] [place], [place] [phone] + ANTONELLA, DON Next of Kin Unknown + ATNONELLA, DON Next of Kin Unknown + ANTONELLA, [...] Next of Kin [address] [place], [place] [phone] + JACIELSERA Next of Kin Unknown [phone] ANTONELLA, DON Next of Kin Unknown + ANTONELLA, DON Next of Kin Unknown + JESSICA BERMAN Next of Kin Unknown [phone] VALENTÍN LACANTARA Next of Kin Unknown [phone] ANTONELLA, DON Next of Kin Unknown + ANTONELLA, DON Next of Kin Unknown + ANTONELLA, ANMOL Next of Kin Unknown + ANMOL BERMAN Next of Kin Unknown + Care Team Providers Care Access Clinician Name Role Phone ROD GARCIA Attending Unavailable RADHAROD LEZAMA Admitting Unavailable ROD GARCIA Primary Care Unavailable ALICIA KESSLER MD Admitting Unavailable ALICIA KESSLER MD Primary Care Unavailable ALICIA KESSLER MD Attending Unavailable GONZALEZ CARTER DO Admitting Unavailable GONZALEZ CARTER DO Primary Care Unavailable DIDGONZALEZ ORTIZ DO Attending Unavailable ROD GARCIA Attending Unavailable ROD GARCIA Admitting Unavailable ROD GARCIA Primary Care Unavailable GADIEL QUEZADAOTHY Attending Unavailable BEATRICE QUEZADA DO Admitting Unavailable BEATRICE QUEZADA DO Primary Care Unavailable GONZALEZ CARTER DO Admitting [...] Care Unavailable GONZALEZ CARTER DO Attending Unavailable KORINA AGUILAR MD Primary Care Unavailable KORINA AGUILAR MD Attending Unavailable KORINA AGUILAR MD Admitting Unavailable STEPHANIE VICTORIA Attending Unavailable 12:29 AM Status: F Source: [place] [address] [place] [phone] 11/06/2024 Patient: TOR BERMAN Sex: Female : 1990 Age: 33y Item Facility Professional Category Description Code Code Quantity Fee Total Drugs Normal Saline 478478 2 $0.00 $0.00 1000cc (648156) Nurse/E/M EMERGENCY 316366 1 $0.00 $0.00 DEPARTMENT VISIT HIGH/URGENT SEVERITY (85040-08) Nurse/IV/IM/Infusions Drip/IVPB initial 424422 1 $0.00 $0.00 (33415) Nurse/IV/IM/Infusions Hydration 815110 1 $0.00 $0.00 additional hour (34470) Nurse/IV/IM/Infusions IVP additional 535200 2 $0.00 $0.00 push (32354) Grand Total $0.00 Providers Korina Aguilar M.D. 1 of 2 [facility] Chief Complaint ABDOMINAL PAIN. Principal Diagnosis Acute urinary tract infection with cystitis and hematuria. ICD-10 Codes N30.91: Cystitis, unspecified with hematuria 2 of 2 ED VISIT SUMMARY Observed: 11/06/2024 12:29 AM Status: F Source: [facility] Visit Overview Visit Overview [address] [place] [phone] 11/06/2024 Patient: TOR BERMAN Sex: Female : [...] 11/06/24 126/85 BP 05:01 11/06/24 136/95 HR 00:33 11/06/24 111 HR 05:01 11/06/24 74 RR 00:33 11/06/24 RR 05:01 11/06/24 O2 Sat 00:33 11/06/24 O2 Sat 05:01 11/06/24 Pain 00:33 11/06/24 Pain 05:01 11/06/24 ETCO2 00:33 11/06/24 ETCO2 05:01 11/06/24 GCS 00:33 11/06/24 GCS [...] Observed: 02/2025 12:29 AM Status: F Source: [facility] Order Sheet Order Sheet [address] [id number] 11/06/2024 Patient: TOR BERMAN Sex: Female : 1990 Age: 33y MEASUREMENTS: Wt: 50.8 kg, Ht/Aden: 64.0 in, BMI: 19.22 ALLERGIES: Haldol, Penicillins MEDICATION/IV/DRIP/FLUID ORDERS Order Description Priority Entered Acknowledged Completed IV NS 0.9 %1000 mL at 999 01:04 11/06/2024 01:07 01:52 mL/hr (NOW x1) Korina Aguilar M.D. 11/06/2024 11/06/2024 Yohana Araya R.N. IV NS 0.9 %600 mL at 999 mL/hr 01:05 11/06/2024 01:07 03:37 (NOW x1) Korina Aguilar M.D. 11/06/2024 11/06/2024 Yohana Araya [...] 11/06/2024 01:22 11/06/2024 Tadeo Samano M.D. [place], Yohana EstevesT.-P. Lactate, Serum Stat Stat 01:03 11/06/2024 01:06 11/06/2024 01:22 11/06/2024 Tadeo Samano M.D. [place], R.N. E.M.T.-P. CBC w Diff Stat Stat 01:03 11/06/2024 01:05 11/06/2024 01:22 11/06/2024 Tadeo Samano M.D. [place], R.N. E.M.T.-P. CMP Stat Stat 01:03 11/06/2024 01:06 11/06/2024 [...] Stat 01:03 11/06/2024 01:06 11/06/2024 01:22 11/06/2024 KorinaTadeo Kirby M.D. [place], R.N. E.M.TApril-Tamra. Culture Other Stat 01:03 11/06/2024 01:06 11/06/2024 01:57 11/06/2024 [VANESSA] Stat Tadeo Samano M.D., R.N. [place], R.N. Urinalysis Stat Stat 01:07 11/06/2024 01:08 11/06/2024 01:22 11/06/2024 Tadeo Samano M.D. [place], R.N. E.M.T.-PApril Urine - HCG Stat 01:16 11/06/2024 01:22 11/06/2024 Stat Pranav Samano M.D. E.M.T.-PApril DIAGNOSTIC STUDY ORDERS 3 of 4 Order Sheet Order Description Priority Entered Acknowledged Completed Chest 1V Stat Stat 01:03 11/06/2024 01:06 02:09 Korina Aguilar M.D. 11/06/2024 11/06/2024 Yohana Araya, RFara Order Comments: 01:03 11/06/2024: (sepsis? tachycardic hematuria); Status: Unknown. Korina Aguilar M.D. Reason for Study: Pneumonia CT ABD/PEL w Cont Stat Stat 01:07 11/06/2024 01:08 02:09 Korina Aguilar M.D. 11/06/2024 11/06/2024 Yohana Araya RFara Order Comments: 01:07 11/06/2024: (left sided nephrostomy. hematuia) Korina Aguilar M.D. Reason for Study: Abdominal Pain STAFF ORDERS Order Description Priority Entered Acknowledged Collected Completed [Electronically signed by Korina Aguilar M.D. (11/06/2024 04:46 EST)] 4 of 4 ED VITALS FLOW SHEET Observed: 12:29 AM Status: F Source: [facility] Vitals Vital Sign Flow Sheet [facility] [address] [place] [id number] 11/06/2024 Patient: TOR BERMAN Sex: Female : [...] 126/85 99 111 3 of 3 ED PHYSICIAN CLINICAL REPORT Observed: 11/06/2024 12:29 AM Status: F Source: [facility] Narrative Physician Clinical Narrative [address] [place] [phone] 11/06/2024 Patient: TOR BERMAN Sex: Female : [...] - 450 Final Above high normal EST 3 of 13 Narrative 11/06/2024 01:56 AUTOMATED MPV 6.6 fl [...] 1.50 - 7.10 Final EST 11/06/2024 01:56 Bossier # 0.91 x10/UL 0.20 - 1.00 Final [...] Clarity Final Abnormal CLEAR EST 8 of Narrative UNABLE TO NORMAL: 11/06/2024 03:58 ph 7 Final PERFORM 5.0-8.0 EST PROTEIN NORMAL: 11/06/2024 03:58 Glucose NORM Final NORMAL EST NORMAL: 11/06/2024 03:58 Ketone NEG Final NEGATIVE EST NORMAL: 11/06/2024 03:58 Bilirubin NEG Final NEGATIVE EST 250 NORMAL: 11/06/2024 03:58 Blood Final Abnormal NEGATIVE EST NORMAL: 11/06/2024 03:58 Urobilinog NORM Final NORMAL EST NORMAL: 11/06/2024 03:58 Sp Fenton 1.010 Final 1.010-1.030 EST NORMAL: 11/06/2024 03:58 [...] Final NORMAL EST NORMAL: 11/06/2024 04:02 Sp Fenton 1.020 Final 1.010-1.030 EST NORMAL: 11/06/2024 04:02 [...] with the primary care physician on the 7th of this month, and with the surgeon on the 8th Disposition: Discharge patient Impression: 1. Cystitis). Disposition: [...] Aguilar M.D. 11/06/24 04:46:56 EST) Generated by [facility] 13 of 13 ED NURSES CLINICAL NOTE Observed: 2024 12:29 AM Status: F Source: [facility] Nurse Narrative Nurse Clinical Narrative [address] [place] [phone] 11/06/2024 Patient: TOR BERMAN Sex: Female : [...] acute abdomen. -- 00:42 11/06/24 SUMEET Farah R.N. 00:33 11/06/24. BP: 126/85 MAP: 99 mmHg. HR: 111 bpm. -- 00:43 11/06/24 SUMEET Farah R.N. 00:35 11/06/24. HR: 116 bpm. O2 saturation: 100%. -- 00:43 11/06/24 SUMEET Farah R.N. 00:43 11/06/24. RR: 20. Pain level now 8/10. -- 00:43 11/06/24 SUMEET Farah R.N. 00:11/06/24. Temperature: 98.8 F. -- 00:43 11/06/24 SUMEET Farah R.N. Measurements: 00:42 11/06/24 Wt: 50.8 kg, Ht/Aden: 64.0 in, BMI: 19.22 -- 00:42 11/06/24 SUMEET Farah RAprilN. Medications: Lexapro 20 mg tablet: 20 mg once a day every AM. -- 00:37 11/06/24 SUMEET Farah RAprilNApril ondansetron HCl 4 mg tablet: 4 mg four times a day as needed. -- 00:38 11/06/24 Jamison SolanoNApril lorazepam 1 mg tablet: 1 mg four times a day as needed. -- 00:11/06/24 Jamison SolanoNApril 1 of 5 Nurse Narrative oxycodone 5 mg tablet: 10 mg every 8 hours as needed. -- 00:38 11/06/24 SUMEET Farah R.N. Allergies: Haldol -- 00:37 11/06/24 SUMEET Farah R.N. Penicillins -- 00:37 11/06/24 SUMEET Farah R.N. Problems: Cervical Cancer -- [...] 100%. -- 01:34 11/06/24 SUMEET Tejeda R.N. 01:09 11/06/24. Ambulatory to room. GENERAL / [...] Wastage: 0.5 mg wasted. -- 03:38 11/06/24 Jamison ParksNApril DISPOSITION / DISCHARGE 02:52 11/06/24. IV NS 0.9 %: Medication Discontinued. bag #1 completed. Total amount infused: 1000 mL. IV patency established. IV site checked: no pain, redness, or swelling. IV flushed thoroughly post-medication administration. -- 05:03 11/06/24 EST Fly Farah R.N. 02:53 11/06/24. cefTRIAXone (Rocephin) IVPB 1gm/50ml NS: Medication Discontinued. IV completed. Total amount infused: 50 mL. IV patency established. IV site checked: no pain, redness, or swelling. IV flushed thoroughly post-medication administration. -- 05:03 11/06/24 SUMEET Farah, R.N. 04:35 11/06/24. HR: 69 bpm. O2 saturation: 99%. -- 05:04 11/06/24 SUMEET Farah R.N. 04:39 11/06/24. HYDROmorphone (Dilaudid) IVP: Medication Response. No adverse reaction. Pain is improving. -- 05:04 11/06/24 SUMEET Farah R.N. 04:54 11/06/24. IV NS 0.9 %: Medication Discontinued. bag #2 stopped. Total amount infused: 200 mL. IV patency established. IV site checked: no pain, redness, or swelling. IV flushed thoroughly post-medication administration. -- 05:04 11/06/24 SUMEET Farah R.N. 04:59 11/06/24. Site #1 removed upon discharge. Catheter intact. Pressure dressing applied. -- 05:04 11/06/24 SUMEET Farah R.N. 05:11/06/24. BP: 136/95 MAP: 108 mmHg. HR: 74 bpm. -- 05:04 11/06/24 SUMEET Farah R.N. Departure time: 05:02 11/06/2024. Condition at departure: improved and stable. No learning barriers present. Discharge instructions provided and reviewed with the patient. Treatments reviewed. Reviewed referral to a primary care physician. Patient verbalized understanding. Written instructions provided in Belgian. The patient was discharged home. The patient left ambulatory and via private vehicle. Patient driving. -- 05:05 11/06/24 SUMEET Farah RFara 4 of 5 Nurse Narrative (Electronically signed by Tadeo Tejeda R.N. 11/06/24 07:52:13 EST) Generated by [facility] 5 of 5 ED MED ADMINISTRATION DETAIL Observed: 0 11/06/2024 12:29 AM Status: F Source: [facility] Manager Progressive Care Medication Administration Record [facility] [address] [place] [id number] 11/06/2024 Patient: TOR BERMAN Sex: Female : [...] understanding. - 01:52 Yohana Stock R.N. Scanned 02:52 11/06 Medication Discontinued: bag #1 completed. Total amount infused: 1000 mL. IV patency established. IV site checked: no pain, redness, or swelling. IV flushed thoroughly post-medication administration. - 05:03 Fly Farah R.N. 1 of 3 Manager Progressive Care Medication Ordered Medication Administration Date/Time IV NS 0.9 % 600 mL 03:36 11/06 IV NS 0.9 % 600 mL started in bag#2 600 mL at 999 Started at 999 mL/hr (NOW mL/hr via Site# 1. Allergies verified and confirmed 5 rights. IV 03:36 11/06/2024 x1) patency established. IV site checked: no pain, redness, or swelling. Tadeo Tejeda, IV flushed thoroughly pre-medication administration. Information R.N. [...] IV flushed thoroughly post-medication administration. - 05:04 Fly Farah R.N. cefTRIAXone 01:52 11/06 cefTRIAXone (Rocephin) IVPB 1gm/50ml NS 1 g Started (Rocephin) IVPB started at 100 mL/hr diluted in sodium chloride IVPB 0.9 % 01:52 11/06/2024 1gm/50ml NS 1 g Minibag+ 50 mL via Site# 1. Allergies verified and confirmed 5 Tadeo Nikhil, diluted in sodium rights. Via IV pump. IV patency established. IV site checked: no R.N. chloride IVPB 0.9 % pain, redness, or swelling. IV flushed thoroughly pre- medication Stopped Minibag+ 50 mL at administration. Information reviewed with patient including reason 02:53 11/06/2024 100 mL/hr (NOW x1) for taking this medication, signs of allergic reaction and precautions. Fly Farah R.N. Verbalizes understanding. - 01:52 Tadeo Tejeda R.N. Scanned 02:53 11/06 Medication Discontinued: IV completed. Total amount infused: 50 mL. IV patency established. IV site checked: no pain, redness, or swelling. IV flushed thoroughly post-medication administration. - 05:03 Fly Farah R.N. 2 of 3 Manager Progressive Care Medication Ordered Medication Administration Date/Time HYDROmorphone 03:37 11/06 HYDROmorphone (Dilaudid) IVP 0.5 mg given via Given (Dilaudid) IVP 0.5 Site# 1. Allergies verified and confirmed 5 rights. IV patency 03:37 11/06/2024 mg (NOW x1, HIGH established. IV site checked: no pain, redness, or swelling. IV Tadeo Tejeda, ALERT flushed thoroughly pre-medication administration. IVP given by R.N. MEDICATION) nurse. Information reviewed with patient including reason for taking Scanned this medication, signs of allergic reaction and precautions. Verbalizes understanding. Medication Wastage: 0.5 mg wasted. - 03:38 Tadeo Tejeda R.N. 04:39 11/06 Medication Response: No adverse reaction. Pain is improving. - 05:04 Fly Farah R.N. Zofran IVP 4 mg 03:37 11/06 Zofran IVP 4 mg given via Site# 1. Allergies verified Given (NOW x1) and confirmed 5 rights. IV patency established. IV site checked: no 03:37 11/06/2024 pain, redness, or swelling. IV flushed thoroughly pre-medication natalia Stock. IVP given by nurse. Information reviewed with R.N. patient including reason for taking this medication, signs of allergic Scanned reaction and precautions. Verbalizes understanding. - 03:37 Tadeo Tejeda R.N. 3 of 3 IR NEPHROSTOMY EXCHANGE Observed: 2023 8:00 AM Status: F Source: [facility] MAIN ORIGINAL PROCEDURE: IR NEPHROSTOMY TUBE [...] tube was exchanged for a new 12 [place] external drainage nephrostomy catheter. Pigtail tip formed [...] the procedure including risks, benefits, and alternatives. Maxwelton protocol was observed. Sterile gowns, masks, hats and gloves utilized for maximal sterile barrier. As above in technique section FINDINGS: Preliminary nephrostogram demonstrates satisfactory position of previously placed external drainage nephrostomy catheter. Postprocedure image demonstrates new 12 [place] left nephrostomy tube with tip curled in left renal pelvis. No complication or contrast extravasation noted. IMPRESSION: Exchange of previously placed 12 [place] left nephrostomy tube for a new, similar tube with tip curled in left renal pelvis. No complication suggested. Interpreted by: Bryon Hernández DO Preliminary Report By: Bryon Hernández DO Electronically signed By Bryon Hernández DO Dictated Date: 10/13/2024 3:36:32 PM Prelim Date: 10/13/2024 3:38:58 PM Sign Date: 10/13/2024 3:38:58 PM Ordering Provider: VON BACA CT ABDOMEN/PELVIS WO Observed: 12:42 PM Status: F Source: [place] [id number] Patient: TOR BERMAN Phone#: : 1990 Age: 33 Gender: F Pt. Type: ER Account: [id number] Location: 2 Ordering: ALICIA KESSLER Exam Date: 08/31/2024/7:18 Family Phys: Charge Code: [id number] Physician: Gallia Order #: [id number] Dose#: 4.7 PROCEDURE: CT ABDOMEN/PELVIS WITHOUT CONTRAST COMPARISON: [facility], CT, ABDOMEN/PELVIS W CON, 05/17/2024, 19:58. INDICATIONS: [...] 33 Gender: F Pt. Type: ER Account: [id number] Location: 052 Ordering: ALICIA KESSLER Exam Date: 08/31/2024/7:18 Family Phys: Charge Code: [id number] Physician: Gallia Order #: [id number] Dose#: 4.7 OTHER: Negative. CONCLUSION: 1. Diffuse [...] Collected: 08/31/2024 9:28 AM Status: F Source: [facility] TYPE CODE TESTS RESULT OUT OF RANGE [...] eGFR(AA)(LOINC) eGFR(AA) >60 60 - 999 ML/MIN GRINDSTONE Result Comment: ACCORDING TO THE NATIONAL KIDNEY DISEASE EDUCATION PROGRAM(NKDE), A NORMAL eGFR IS A VALUE GREATER THAN OR EQUAL TO 60 ML/MIN/1.73 SQ METERS. CHRONIC KIDNEY DISEASE: <60mL/MIN/1.73 SQ METERS KIDNEY FAILURE: <15mL/MIN/1.73 SQ METERS THIS TEST SHOULD ONLY BE USED FOR PATIENTS 18 YEARS OF AGE AND OLDER. Performed By: #### [id number] ## ## [facility],[address] [place] [address] BMP WITH EGFR Collected: 08/31/2024 6:00 AM Status: F Source: [facility] TYPE CODE TESTS RESULT OUT OF RANGE REFERENCE UNITS LAB BMP with eGFR(LOINC) BMP with eGFR Result Comment: BASIC METABO LIC PANEL LAB SODIUM(LOINC) SODIUM 143 136 - 145 mmol/l LAB POTASSIUM(LOINC ) POTASSIUM 2.9 Low Alert 3.5 - 5.1 mmol/L Result Comment: { CALLED TO ED AT 0650 { READ BACK BY TADEO TO B LAB CHLORIDE(LOINC) CHLORIDE 104 98 - 107 [...] eGFR(AA)(LOINC) eGFR(AA) >60 60 - 999 ML/MIN GRINDSTONE Result Comment: ACCORDING TO THE NATIONAL KIDNEY DISEASE EDUCATION PROGRAM(NKDE), A NORMAL eGFR IS A VALUE GREATER THAN OR EQUAL TO 60 ML/MIN/1.73 SQ METERS. CHRONIC KIDNEY DISEASE: <60mL/MIN/1.73 SQ METERS KIDNEY FAILURE: <15mL/MIN/1.73 SQ METERS THIS TEST SHOULD ONLY BE USED FOR PATIENTS 18 YEARS OF AGE AND OLDER. Performed By: #### [id number] ## ## [place] [address] SERUM QUAL Collected: 08/31/2024 6:00 AM S tatus: F Source: [facility] TYPE CODE TESTS RESULT OUT OF RANGE REFERENCE UNITS LAB SER(LOINC) SER POSITIVE NEGATIVE LAB INTERNAL QC(LOINC) INTERNAL QC PASS LAB EXTERNAL QC DONE?(LOINC) EXTERNAL QC DONE? YES Performed By: #### [id number] ## ## [place] [id number] CBC + DIFF Collected: 6:00 AM Status: F Source: [facility] TYPE CODE TESTS RESULT OUT OF RANGE [...] High 1.50 - 7.10 x10EE3 /UL LAB Bossier #(LOINC) Boss[place] # 1.00 0.20 - 1.00 x10EE3 /UL LAB EO #(LOINC) EO # 0.19 0.00 - 0.50 x10EE3/U L LAB Baso #(LOINC) Baso # 0.06 0.00 - 0.10 x10EE3 /UL LAB MANUAL DIFF(LOINC) MANUAL DIFF N/A LAB MORPHOLOGY(ISAIAH NC) MORPHOLOGY N/A Performed By: #### [id number] ## ## [facility],[address] [place] [address] ED VISIT SUMMARY Observed: 08/31/2024 5:08 AM Status: F Source: [facility] Visit Overview [place] [address] [phone] 08/31/2024 Patient: TOR BERMAN Sex: Female : [...] MOUTH EVERY 6 HOURS NEEDED FOR PAIN 3 Visit Overview PAST MEDICAL HISTORY / [...] 2 g 25 mL/hr 07:55 08/31/24 Promethazine DC 25 mg 10:11 08/31/24 Zofran IVP 4 [...] in lowest position. Brakes of bed on. 3 Visit Overview VITAL SIGNS First Vitals [...] NAUSEA AND DEHYDRATION 3 of 3 ED PHYSICIAN CLINICAL REPORT Observed: 1 5:08 AM Status: F Source: [facility] Narrative Physician Clinical Narrative [facility] [address] [place] [address] [phone] 08/31/2024 Patient: TOR BERMAN Sex: Female : [...] ED care transferred. Case discussed with Dr. Garcia. Assumed care MEDICAL DECISION MAKING: (patient's potassium low given potassium magnesium replacement. Will obtain CT scan for further evaluation. Patient's hCG positive likely from her cancer patient is not . Patient signed out to oncoming provider please see their note for further care). (Electronically signed by Alicia Kessler M.D. 08/31/24 07:13:34 EDT) Generated by [facility] Physician Clinical Narrative [address] [address] [phone] 08/31/2024 Patient: TOR BERMAN Sex: Female : [...] BY 06:50 EDT limits TADEO TO CWB 4 of 13 Narrative 08/31/2024 CHLORIDE 104 mmol/L 98 - [...] 999 Final Below low normal 06:50 EDT Narrative ACCORDING TO THE NATIONAL KIDNEY [...] 10.8 Final Above high normal EDT 6 of 13 Narrative 08/31/2024 06:25 RBC 4.88 x 10/UL [...] 0.3 % 0.0 - 2.0 Final EDT 13 Narrative 3.41 x10/UL 08/31/2024 06:25 Lymph # 0.80 - 2.80 Final Above high normal EDT 11.82 x10/UL 08/31/2024 06:25 Neut # 1.50 - 7.10 Final Above high normal EDT 08/31/2024 06:25 Bossier # 1.00 x10/UL 0.20 - 1.00 Final [...] ML/MINUTE 60 - 999 Final 09:57 EDT 9 of 13 Narrative ACCORDING TO THE NATIONAL [...] 08/31/2024 12:42:00 EDT MsgRcvd: 08/31/2024 12:46 EDT [place] [address] Patient: TOR BERMAN Narrative Phone#: : 1990 Age: 33 Gender: F Pt. Type: ER Account: [id number] Location: [facility] Ordering: ALICIA KESSLER Exam Date: 08/31/2024/7:18 Family Phys: Charge Code: [id number] Physician: Gallia Order #: [id number] Dose#: 4.7 PROCEDURE: CT ABDOMEN/PELVIS WITHOUT CONTRAST COMPARISON: [facility], CT, ABDOMEN/PELVIS W CON, 05/17/2024, 19:58. INDICATIONS: [...] 33 Gender: F Pt. Type: ER Account: [id number] Location: 052 Ordering: ALICIA KESSLER Exam Date: 08/31/2024/7:18 Family Phys: Charge Code: 597060 Physician: Gallia Order #: [id number] Dose#: 4.7 OTHER: Negative. CONCLUSION: 1. Diffuse [...] days, dispense 5 tablet. Refills 0. Pharmacy: [facility]. - [address] [place] [address]. Follow-up: Follow up with your doctor in two days. Dr. Pace. (Electronically signed by Rod Garcia D.O. 09/04/24 08:54:22 EDT) Generated by [facility] 13 of 13 ED NURSES CLINICAL NOTE Observed: 2023 5:08 AM Status: F Source: [facility] Nurse Narrative Nurse Clinical [facility] [address] [place] [address]. [place] [address] [phone] 08/31/2024 Patient: TOR BERMAN Sex: Female : [...] Vargas R.N. Allergies: Haldol -- 05:11 08/31/24 BRANDEET Jose Vargas R.N. Penicillins -- 05:11 08/31/24 EDT Jose Vargas R.N. Problems: Cervical Cancer -- 05:12 08/31/24 BARNDEET Jose Vargas R.N. Chronic kidney disease (disorder) -- 05:12 08/31/24 BRANDEET Jose Vargas R.N. ADDITIONAL SURGERIES: Percutaneous insertion of nephrostomy tube -- 05:15 08/31/24 BRANDEET Jose Vargas R.N. History 05:09 08/31/24. SOCIAL [...] identified. -- 05:19 08/31/24 GINNY Vargas R.N. 05:08/31/24. SOCIAL HX: Current every day smoker. -- 05:22 08/31/24 BRANDEET Jose Vargas R.N. PHYSICAL ASSESSMENT 2 of 5 Nurse Narrative 05:23 08/31/24. BP: 168/99 MAP: 148 mmHg. HR: 61 bpm. -- 06:12 08/31/24 EDT Tadeo Tejeda R.N. 05:24 08/31/24. HR: 60 bpm. O2 saturation: 100%. -- 06:12 08/31/24 EDT Tadeo Tejeda R.N. 06:00 08/31/24. Ambulatory to room. [...] is warm and dry. -- 06:15 08/31/24 EDT Tadeo Tejeda R.N. 06:12 08/31/24. Pain level now [...] bed on. -- 07:56 08/31/24 EDT Manfred Pantoja R.N. 07:38 08/31/24. potassium chloride(K-Adan)20mEq/100ml IVPB Premix 20 mEq started at 50 mL/hr via Site# 1. Via IV pump. IV patency established. IV site checked: no pain, redness, or swelling. IV flushed thoroughly pre-medication administration. Information reviewed with patient. Verbalizes understanding. -- 07:40 08/31/24 BRANDEET Manfred Pantoja R.N. 07:38 08/31/24. potassium chloride(K-Adan)20mEq/100ml IVPB Premix: Medication Co-sign. Verified dosage, concentration and rate. -- 07:40 08/31/24 GINNY Toth R.N. 07:41 08/31/24. Magnesium Sulfate 4gm/50mL Premix IVPB 2 g started at 25 mL/hr via Site# 1. Medication Wastage: 2 g wasted. -- 07:45 08/31/24 GINNY Pantoja R.N. 07:41 08/31/24. Magnesium Sulfate 4gm/50mL Premix IVPB: Medication Co-sign. Verified dosage, concentration and rate. -- 07:45 08/31/24 GINNY Toth R.N. 07:55 08/31/24. Promethazine DC 25 mg given. Allergies verified and confirmed 5 rights. Information reviewed with patient. Verbalizes understanding. -- 07:55 08/31/24 GINNY Pantoja R.N. 08:42 08/31/24. Magnesium Sulfate 4gm/50mL Premix IVPB: Medication Discontinued. IV completed. Total amount infused: 25 mL. IV patency established. IV site checked: no pain, redness, or swelling. IV flushed thoroughly post-medication administration. -- 09:21 08/31/24 Jamison SommerNApril 09:20 08/31/24. IV NS 0.9 %: Medication Discontinued. bag #2 completed. Total amount infused: 2000 mL. IV patency established. IV site checked: no pain, redness, or swelling. IV flushed thoroughly post-medication administration. -- 09:20 08/31/24 Jamison SommerNApril 10:11 08/31/24. Zofran IVP 4 mg given via Site# 1. Allergies verified and confirmed 5 rights. IV patency established. IV site checked: no pain, redness, or swelling. IV flushed thoroughly pre-medication administration. Information reviewed with patient. Verbalizes understanding. -- 10:12 08/31/24 EDT Manfred Pantoja R.N. Intake Output 09:34 08/31/24. Urine output: 300 mL. (emptied from nephrostomy bag. ). -- 09:34 08/31/24 EDT Manfred Pantoja R.N. DISPOSITION / DISCHARGE 09:43 08/31/24. potassium chloride(K-Adan)20mEq/100ml IVPB Premix: Medication Discontinued. IV completed. Total amount infused: 100 mL. IV patency established. IV site checked: no pain, redness, or swelling. IV flushed thoroughly post-medication administration. -- 10:33 08/31/24 EDT Manfred Pantoja R.N. 10:08/31/24. Site #1 removed upon discharge. Catheter intact. Bandage applied. -- 10:34 08/31/24 BRANDEET Manfred Pantoja R.N. Departure time: 10:32 08/31/2024. Condition at departure: improved. Discharge instructions provided and reviewed with the patient. Reviewed medication(s) dosing and course information. Prescription(s) sent 4 of 5 Nurse Narrative electronically to pharmacy. Reviewed referral to family practice for followup. Verbalized understanding. Written instructions provided in Belgian. The patient was discharged by the physician. The patient was discharged home. The patient left ambulatory and via private vehicle. Patient driving. -- 10:35 08/31/24 EDT Manfred Pantoja R.N. 10:32 08/31/24. BP: 149/87 MAP: 125 mmHg. HR: 61 bpm. -- 10:33 08/31/24 EDT Manfred Pantoja R.N. (Electronically signed by Manfred Pantoja R.N. 08/31/24 10:35:44 EDT) Generated by [facility] 5 of 5 ED ORDER SHEET (CPOE ONLY) Observed: 5:08 AM Status: F Source: [facility] Order Sheet Order Sheet [facility] [address] [place] [address]. [place] [address] [id number] 08/31/2024 Patient: TOR BERMAN Sex: Female : 1990 Age: 33y MEASUREMENTS: Wt: 54.4 kg, Ht/Aden: 64.0 in, BMI: 20.60 ALLERGIES: Haldol, Penicillins MEDICATION/IV/DRIP/FLUID ORDERS Order Description Priority Entered Acknowledged Completed IV NS 0.9 %2000 mL at 999 05:15 08/31/2024 05:29 06:09 mL/hr (NOW x1) Alicia Kessler, 08/31/2024 08/31/2024 Yohana Blair R.N. Zofran IVP8 mg (NOW x1) 05:15 08/31/2024 05:29 06:08 Alicia Kessler, 08/31/2024 08/31/2024 Yohana Blair, RAprilNApril Reason for ordering with alerts: Benefits [...] ALERT MEDICATION) Alicia Kessler, 08/31/2024 08/31/2024 Yohana Weiss, RAprilNApril Reason for ordering with alerts: Benefits outweigh risks --06:16 08/31/2024 Alicia Kessler M.D. Magnesium Sulfate 4gm/50mL 06:52 08/31/2024 06:53 07:45 Premix IVPB2 g at 25 mL/hr Alicia Kessler, 08/31/2024 08/31/2024 (NOW x1, HIGH ALERT Natali Pantoja, MEDICATION) Yohana Tejeda.N. potassium 06:52 08/31/2024 06:53 07:40 chloride(K-Adan)20mEq/100ml Alicia Kessler, 08/31/2024 08/31/2024 IVPB Ihgwcr16 mEq at 50 mL/hr Natali Pantoja, (NOW x1) Yohana Tejeda R.N. Promethazine PR25 mg (NOW 07:41 08/31/2024 07:54 07:55 x1) Rod Garcia, 08/31/2024 08/31/2024 Manfred Carnes R.N. R.NApril Reason for ordering with alerts: Benefits outweigh risks --07:41 08/31/2024 Rod Garcia D.O. Zofran IVP4 mg (NOW x1) 09:56 08/31/2024 10:12 Rod Garcia, 08/31/2024 Kendra Pantoja R.N. Reason for ordering with alerts: Benefits outweigh risks --09:56 08/31/2024 Rod Garcia D.O. LAB ORDERS Order Description Priority Entered [...] 08/31/2024 Manfred Stanton R.N. Kobe Miller, R.N. D.OApril DIAGNOSTIC STUDY ORDERS Order [...] (08/31/2024 07:13 EDT)] 3 of 3 ED MED ADMINISTRATION DETAIL Observed: 1 5:08 AM Status: F Source: [facility] Manager Progressive Care Medication Administration Record [address] [place] [address] [id number] 08/31/2024 Patient: TOR BERMAN Sex: Female : [...] 06:09 Jose Vargas R.N. 09:20 08/31/2024 Manfred Pantoja R.N. 09:20 08/31 Medication Discontinued: bag #2 completed. Total Scanned amount infused: 2000 mL. IV patency established. IV site checked: no pain, redness, or swelling. IV flushed thoroughly post-medication administration. - 09:20 Manfred Pantoja R.N. Zofran IVP 8 mg 06:07 08/31 [...] pain, redness, or swelling. IV flushed thoroughly Tadeo Tejeda, MEDICATION) pre-medication administration. IVP given by nurse. Information R.N. reviewed with patient including reason for taking this medication, Scanned signs of allergic reaction and precautions. Verbalizes understanding. - 06:23 Tadoe Tejeda R.N. 1 of 3 Manager Progressive Care Medication Ordered Medication Administration Date/Time Magnesium Sulfate [...] flushed thoroughly post-medication administration. - 09:21 Manfred Pantoja R.N. potassium 07:38 08/31 potassium chloride(K-Adan)20mEq/100ml IVPB Started chloride(K-Adan)20 Premix 20 mEq started at 50 mL/hr via Site# 1. Via IV pump. IV 07:38 08/31/2024 mEq/100ml IVPB patency established. IV site checked: no pain, redness, or swelling. Manfred Pantoja R.N. Premix 20 mEq at IV flushed thoroughly pre-medication administration. Information Stopped 50 mL/hr (NOW x1) reviewed with patient. Verbalizes understanding. - 07:40 Manfred 09:43 08/31/2024 Yohana Pantoja R.N. Scanned 07:38 08/31 Medication Co-sign: Verified dosage, concentration and rate. - 07:40 Jase Toth R.N. 09:43 08/31 Medication Discontinued: IV completed. Total amount infused: 100 mL. IV patency established. IV site checked: no pain, redness, or swelling. IV flushed thoroughly post-medication administration. - 10:33 Manfred Pantoja R.N. Promethazine DC 07:55 08/31 Promethazine DC 25 mg given. Allergies verified and Given [...] or swelling. IV flushed thoroughly pre-medication Manfred Pantoja R.N. administration. Information reviewed with patient. Verbalizes Scanned understanding. - 10:12 Manfred Pantoja R.N. 2 of 3 Manager Progressive Care 3 of 3 ED SUPER BILL Observed: 08/31/2024 5:08 AM Status: F Source: [address] [place] [address] [phone] 08/31/2024 Patient: TOR BERMAN Sex: Female : 1990 Age: 33y Item Facility Professional Category Description Code Code Quantity Fee Total Nurse/E/M EMERGENCY 695655 1 $0.00 $0.00 DEPARTMENT VISIT HIGH/URGENT SEVERITY (72601-77) Nurse/IV/IM/Infusions Drip/IVPB 967683 1 $0.00 $0.00 additional hour (77957) Nurse/IV/IM/Infusions Drip/IVPB 874858 1 $0.00 $0.00 concurrent (23804) Nurse/IV/IM/Infusions Drip/IVPB initial 536990 1 $0.00 $0.00 (13405) Nurse/IV/IM/Infusions Hydration 903040 2 $0.00 $0.00 additional hour (67878) Nurse/IV/IM/Infusions IVP additional 598730 2 $0.00 $0.00 push (49179) 1 of 2 [facility] Professional Category Description Code Code Quantity Fee Total Nurse/IV/IM/Infusions IVP same med 456936 1 $0.00 $0.00 (31 min apart) (63837) Grand Total $0.00 Providers Natali Frost D.O. Chief Complaint VOMITING and DIARRHEA. Principal Diagnosis Acute generalized abdominal pain. Vomiting with nausea and dehydration. Hypokalemia ICD-10 Codes R10.84: Generalized abdominal pain E87.6: Hypokalemia K52.9: Noninfective gastroenteritis and colitis, unspecified R11.2: Nausea with vomiting, unspecified 2 of 2 ED PHYSICIAN DISCHARGE REPORT Observed: 08/31/2024 5:08 AM Status: F Source: [facility] Discharge Instructions Discharge Summary [address] [place] [address] [id number] 08/31/2024 Patient: TOR BERMAN Sex: Female : 1990 Age: 33y Thank you for visiting [facility]. You have been evaluated today by Rod Garcia D.O. for the following condition(s): Principal Diagnosis Acute generalized abdominal pain. Vomiting with nausea and dehydration. Hypokalemia INSTRUCTIONS Prescription Medications: potassium chloride ER 20 mEq tablet,extended release: Take 1 tablet by mouth once a day for 5 days, dispense 5 tablet. Refills 0. Pharmacy: [facility] - [address] [place] [address]. Follow-up: Follow up with your doctor in two days. Dr. Pace. You have been given the following additional information: Hypokalemia Patient Signature 1 of 5 Discharge Instructions Facility Helpdesk Administrator Date/Time General Instructions with ExitWriter [facility] [address] [place] [address] [phone] 08/31/2024 Patient: TOR BERMAN Sex: Female : 1990 Age: 33y Thank you for visiting [facility]. You have been evaluated today by Rod Garcia D.O. for the following condition(s): Principal Diagnosis Acute generalized abdominal pain. Vomiting with nausea and dehydration. Hypokalemia INSTRUCTIONS Prescription Medications: potassium chloride ER 20 mEq tablet,extended release: Take 1 tablet by mouth once a day for 5 days, dispense 5 tablet. Refills 0. Pharmacy: [facility] - [address] [place] [address]. Follow-up: Follow up with your doctor in [...] heart rate Loss of consciousness Discharge Summary [address] [address] [id number] 08/31/2024 Patient: TOR BERMAN Sex: Female : 1990 Age: 33y Thank you for visiting [facility]. You have been evaluated today by Alicia Kessler M.D. for the following condition(s): Patient Signature Facility Helpdesk Administrator Date/Time General Instructions with ExitWriter [address] [address] [id number] 08/31/2024 Patient: TOR BERMAN Sex: Female : 1990 Age: 33y 4 of 5 Discharge Instructions Thank you for visiting [facility]. You have been evaluated today by Alicia Kessler M.D. for the following condition(s): 5 of 5 ED VITALS FLOW SHEET Observed: 5:08 AM Status: F Source: [facility] Vitals Vital Sign Flow Sheet [address] [address] [phone] 08/31/2024 Patient: TOR BERMAN Sex: Female : [...] 100% 97.8 F 8 2 of 2 IR NEPHROSTOMY EXCHANGE Observed: 2023 10:00 AM Status: F Source: [facility] MAIN ORIGINAL HISTORY: ORDERING SYSTEM PROVIDED HISTORY: Reason for Exam: cervical caner PROCEDURE: 1. Nephrostomy tube exchange under fluoroscopy LATERALITY: Left DRY WALL PLASTERER: Dr. Martinez Resident: Dr. Goode MATERIALS: 12 Fr drainage catheter Amplatz Fenton bag Jese catheter ANESTHESIA: General anaesthesia. INTRASERVICE [...] sterilely prepped and draped. Time out performed. Senior Net Developer Architect image demonstrates stable appearance of the nephrostomy [...] test or pathology results. Interpreted by: Garth Martinez Preliminary Report By: Douglas Goode Electronically signed By Garth Martinez Dictated Date: 08/11/2024 2:01:42 PM Prelim Date: 08/11/2024 5:39:17 PM Sign Date: 08/11/2024 5:39:17 PM Ordering Provider: NASRIN ISABEL CBC Collected: 7:27 AM Status: F Source: [facility] MAIN TYPE CODE TESTS RESULT OUT [...] MPV 7.4 6.6-10.5 fL Performed By: #### BMP, ANEU , GFR, ADIFF, CBC #### [place] [address] .AUTO DIFF Collected: 08/06/2024 7:27 AM Status: F Source: [facility] MAIN TYPE CODE TESTS RESULT OUT [...] 0.1 0.0-0.3 10 3/mcL Performed By: #### BMP, ANEU , GFR, ADIFF, CBC #### [place] [address] .NEUABS Collected: 7:27 AM Status: F Source: [facility] MAIN TYPE CODE TESTS RESULT OUT OF RANGE REFERENCE UNITS LAB ANEU(LOINC) Neutrophil, Absolute 6.1 2.3-8.1 10 3/mcL Performed By: #### BMP, ANEU , GFR, ADIFF, CBC #### [place] [address] BMP Collected: 08/06/2024 7:27 AM Status: F Source: [facility] MAIN TYPE CODE TESTS RESULT OUT [...] mg/dL Result Comment: Testing perf ormed on [employer] CH analyzer using enzymatic creatinine methodology. LAB BC(LOINC) BUN/Creatinine Ratio 13.3 10.0-22.0 ratio LAB CA(LOINC) Calcium Lvl 10.7 High 8.7-10.4 mg/dL Performed By: #### BMP, ANEU , GFR, ADIFF, CBC #### [address] [address] .GFR Collected: 4 7:27 AM Status: F Source: [facility] MAIN TYPE CODE TESTS RESULT OUT [...] 15 mL/min/1.73 square meters Performed By: #### BMP, ANEU , GFR, ADIFF, CBC #### [address] [address] ALLERGIES DATE TYPE / CODE NAME / CODE REACTION SEVERITY SOURCE Drug Allergy/769975600 (SNOMED CT) PENICILLINS (CLASS)/83482104(RXNORM) U [facility] Drug Allergy/688023724 (SNOMED CT) HALOPERIDOL/74175036(RXN ORM) [facility] ENCOUNTERS ADMIT/DISCHARGE ACCOUNT NUMBER ADMITTING ENCOUNTER CLASS LOCATION SOURCE 07/26/2025 [id number] Ambulatory ABuilding:P R [facility] MAIN 07/18/2025/07/18/20 [id number] Ambulatory ABuilding:[facility] MAIN 06/30/2025 [id number] Ambulatory ABuilding:[facility] MAIN 06/29/2025 [id number] Ambulatory ABuilding:[facility] MAIN 06/29/2025/06/29/20 [id number] Ambulatory ABuilding:SD URoom: 0136Bed: [facility] MAIN 06/20/2025/06/20/20 [id number] Ambulatory ABuilding:[facility] MAIN 06/19/2025/06/19/20 [id number] OBED WINTER Emergency Buildin Room: ERBed: [address] [place] [address] 06/07/2025 [id number] Ambulatory ABuilding:P R [facility] MAIN 06/07/2025/06/07/20 25 [id number] STEPHANIE VICTORIA Emergency Buildin Room: ERBed: 6 [facility] 06/05/2025/06/05/20 25 [id number] OBED WINTER Emergency Buildin Room: ERBed: [facility] 06/01/2025/06/01/20 25 [id number] GONZALEZ CARTER DO Emergency Buildin Room: ERBed: [address] [place] [address] 05/27/2025/05/30/20 [id number] SHARON LORA, DR OLI Jenkins Inpatient Encounter ABuilding:MS 6SRoom: 6679Bed: [facility] MAIN 05/26/2025/05/26/20 25 [id number] GONZALEZ CARTER DO Emergency Buildin Room: ERBed: 3 [facility] 05/25/2025/05/26/20 25 [id number] Emergency ABuilding:[facility] 05/11/2025/05/11/20 25 [id number] Ambulatory ABuilding:[facility] 05/08/2025/05/09/20 25 [id number] Emergency ABuilding:[facility] 05/04/2025/05/07/[id number] RHIANNON ARTEAGA MD Emergency ABuilding:ME 6SRoom: 6672Bed: [facility] MAIN 05/03/2025/05/03/20 25 [id number] GONZALEZ CARTER DO Emergency Buildin Room: ERBed: 7 [facility] 05/03/2025/05/03/20 25 [id number] Emergency ABuilding:[facility] MA[facility] 05/02/2025/05/03/20 25 [id number] GABBY MANDEL DO Emergency Buildin Room: ERBed: 1 [facility] 04/29/2025/04/29/20 25 [id number] GONZALEZ CARTER DO Emergency Buildin Room: ERBed: 4 [facility] 04/11/2025/04/11/20 25 [id number] Ambulatory ABuilding:[facility] 04/06/2025/04/07/20 25 [id number] BHUPENDRA GALVEZ DO Emergency ABuilding:ME 6SRoom: 6660Bed: [facility] MAIN 04/04/2025/04/05/[id number] RHIANNON ARTEAGA MD Emergency ABuilding:ME 6NRoom: 6633Bed: [facility] 04/04/2025 [id number] Ambulatory ABuilding:X R [facility] MAIN 04/03/2025/04/03/20 25 [id number] CHRISTO ARIAS DO Emergency Buildin Room: ERBed: 3 [facility] 04/01/2025/04/01/20 25 [id number] GONZALEZ CARTER DO Emergency Buildin Room: ERBed: 6 [facility] 03/30/2025/03/30/20 [id number] Ambulatory ABuilding:[facility] MAIN 03/25/2025 [id number] Ambulatory ABuilding:P R [facility] MAIN 03/23/2025/03/23/20 25 [id number] ROD GARCIA Emergency Buildin Room: ERBed: 6 [facility] 03/15/2025/03/15/20 [id number] Emergency ABuilding:[facility] MA[facility] 03/09/2025/03/09/20 25 [id number] Emergency ABuilding:[facility] MA[facility] 03/08/2025/03/08/20 25 [id number] ROD GARCIA Emergency Buildin Room: ERBed: 4 [facility] 03/08/2025/03/08/20 25 [id number] Ambulatory ABuilding:[facility] MAIN 03/07/2025/03/07/20 25 [id number] ALICIA KESSLER MD Emergency Buildin Room: ERBed: 6 [facility] 03/05/2025/03/06/20 25 [id number] GONZALEZ CARTER DO Emergency Buildin Room: ERBed: 7 [facility] 02/16/2025/02/17/20 25 [id number] Ambulatory ABuilding:SD URoom: 0130Bed: [facility] MAIN 02/14/2025/02/15/20 [id number] Ambulatory ABuilding:[facility] MA[facility] 02/10/2025/02/11/20 25 [id number] GONZALEZ CARTER DO Emergency Buildin Room: ERBed: 2 [facility] 02/01/2025 [id number] Ambulatory ABuilding:S D U [facility] MAIN 01/29/2025/01/30/20 25 [id number] GONZALEZ CARTER DO Emergency Buildin Room: ERBed: 5 [facility] 01/21/2025/01/22/20 25 [id number] BEATRICE QUEZADA DO Emergency Buildin Room: ERBed: 1 [facility] 12/22/2024 [id number] Ambulatory ABuilding:X R [facility] MAIN 12/22/2024/12/22/19 25 [id number] Ambulatory ABuilding:SD URoom: 0116Bed: [facility] MAIN 12/13/2024/12/13/19 25 [id number] Ambulatory ABuilding:[facility] 12/10/2024/12/10/19 25 [id number] GONZALEZ CARTER DO Emergency Buildin Room: ERBed: [facility] 11/15/2024/11/19/19 25 [id number] Ambulatory ABuilding:AL [facility] MAIN 11/15/2024/11/15/19 25 [id number] Ambulatory ABuilding:[facility] MAIN 11/06/2024/11/06/19 [id number] KORINA AGUILAR MD Emergency Buildin Room: ERBed: 5 [facility] 10/13/2024/10/13/20 24 [id number] Ambulatory ABuilding:SD URoom: 0135Bed: [facility] 10/01/2024 [id number] Ambulatory ABuilding:P R [facility] MAIN 09/28/2024/09/28/20 24 [id number] Ambulatory ABuilding:[facility] MA[facility] 08/31/2024/08/31/20 24 [id number] ALICIA KESSLER MD Emergency Buildin Room: ERBed: 1 [facility] 08/16/2024/08/16/20 24 [id number] Ambulatory ABuilding:PA HD [facility] MAIN 08/11/2024/08/11/20 24 [id number] Ambulatory ABuilding:SD URoom: 0121Bed: B [facility] MAIN 08/06/2024/08/06/20 [id number] Ambulatory ABuilding:[facility] MAIN PAYERS ENCOUNTER GUARANTOR PAYER SUBSCRIBER SOURCE 07/26/2025 TOR Boyce BOLEYDOB: [address] [place] [phone]: (HP) Primary Insurance:MEDICARE PART B INSCOPolicy Number: [id number] Date:0889-61-30Ntta Name:[facility] Administrators [address] [address]EV: TOR Boyce BOLEYDOB: [id number] [place] [phone]: (HP) (WP) [facility] 07/18/2025 TOR Austen BOLEYDOB: [address] [place] [phone]: (HP) Primary Insurance:MEDICARE PART B INSCOPolicy Number: [id number] Date:5679-79-92Vxry Name:[facility] Administrators [address] [address]JB: TOR L BOLEYDOB: [id number] [place] [phone]: (HP) (WP) [facility] 06/30/2025 TOR L BOLEYDOB: [address] [place] [phone]: (HP) Primary Insurance:MEDICARE PART B INSCOPolicy Number: [id number] Date:0295-71-97Xxxi Name:[facility] Administrators [facility] [place] [address]LP: TOR L BOLEYDOB: [id number] [place] [phone]: (HP) (WP) [facility] 06/29/2025 TOR L BOLEYDOB: [address] [place] [phone]: (HP) Primary Insurance:MEDICARE PART B INSCOPolicy Number: [id number] Date:2325-04-70Spde Name:[facility] Administrators [facility] [place] [address], [place] [address]PN: TOR L BOLEYDOB: [id number] [place] [phone]: (HP) () [facility] 06/29/2025 TOR L BOLEYDOB: [address] [place] [phone]: (HP) Primary Insurance:MEDICARE PART B INSCOPolicy Number: [id number] Date:1562-46-18Ybke Name:[facility] Administrators [facility] [place] [address]ow[place]kjpa[place], [place] [address]XI: TOR L BOLEYDOB: [id number] [place] [phone]: (HP) (WP) [facility] 06/20/2025 TOR L BOLEYDOB: [address] [place] [phone]: (HP) Primary Insurance:MEDICARE PART B INSCOPolicy Number: [id number] Date:8792-04-09Eaqz Name:[facility] [place] [address]ZN: TOR L BOLEYDOB: [id number] [place] [phone]: (HP) () [facility] 06/19/2025 TOR L BOLEYDOB: [address] [place] [phone]: (HP) Primary Insurance:MEDICARE OUTPATIENTPolicy Number: [id number] Date:Plan Name: TOR L BOLEYDOB: [id number] [address] [place] [address] [facility] 06/07/2025 TOR L BOLEYDOB: [address] [place] [phone]: (HP) Primary Insurance:MEDICARE PART B INSCOPolicy Number: [id number] Date:3336-06-72Welp Name:[facility] Zaida [facility] [place], [place] [address]XK: TOR L BOLEYDOB: [id number] [place] [phone]: (HP) () [facility] 06/07/2025 TOR L BOLEYDOB: MURTAZ[address] ISAACLOT [address] [place] [phone]: (HP) Primary Insurance:MEDICARE OUTPATIENTPolicy Number: [id number] Date:Plan Name:GILBERTO Boyce BOLEYDOB: [id number] [address] [place] [address] [facility] 06/07/2025 Secondary Insurance:MEDICARE PHYSICIANPolicy Number: [id number] Date:Plan Name:LUIS Boyce BOLEYDOB: [id number] JOHN [address]RAY[address] [place] [id number] [facility] 06/05/2025 TOR Boyce BOLEYDOB: JOHN RDLOT [address] [place] [id number]: () Primary Insurance:MEDICARE OUTPATIENTPolicy Number: [id number] Date:Plan Name:GILBERTO Boyce BOLEYDOB: [id number] JOHN GRAYLOT [address] [place] [id number] [facility] 06/05/2025 Secondary Insurance:MEDICARE PHYSICIANPolicy Number: [id number] Date:Plan Name:LUIS Boyce BOLEYDOB: [id number] JOHN POST [address] [place] [id number] [facility] 06/01/2025 TOR Boyce BOLEYDOB: JOHN POST [address] [place] [id number]: () Primary Insurance:MEDICARE OUTPATIENTPolicy Number: [id number] Date:Plan Name:GILBERTO Boyce BOLEYDOB: [id number] JOHN GRAYLOT 70 [place] [address]85 [facility] 06/01/2025 Secondary Insurance:MEDICARE PHYSICIANPolicy Number: [id number] Date:Plan Name:LUIS Boyce BOLEYDOB: [id number] [address] [place] [address] 49657 [facility] 05/27/2025 TOR L BOLEYDOB: [address] [place] [address]Cbv: (HP) Primary Insurance:MEDICARE PART A INSCOPolicy Number: [id number] Date:9613-40-80Fmwj [facility] [address], [place] [address]DK: TOR L BOLEYDOB: [id number] [place] [address]Rjl: (HP) (WP) [facility] 05/27/2025 Secondary Insurance:MEDICARE PART B INSCOPolicy Number: [id number] Date:9385-00-45Xcwt [facility] [address]Yn[place]xsdub, [place] [address]ZG: TOR L BOLEYDOB: [id number] [place] [address]Bsc: (HP) () [facility] 05/26/2025 TOR L BOLEYDOB: [address] [place] [address] 41838Xax: (HP) Primary Insurance:MEDICARE OUTPATIENTPolicy Number: [id number] Date:Plan Name:GILBERTO LENTZ Austen BOLEYDOB: [id number] [address] [place] [address] 58133 [facility] 05/26/2025 Secondary Insurance:MEDICARE PHYSICIANPolicy Number: [id number] Date:Plan Name:LUIS Boyce BOLEYDOB: [id number] [address] [place] [address] 13786 [facility] 05/25/2025 TOR L BOLEYDOB: [address] [place] [address]Jea: (HP) Primary Insurance:MEDICARE PART B INSCOPolicy Number: [id number] Date:1290-38-27Zqbe Name:[facility] Administrators [facility] [address]Xrhuywh[place]x, [place] [address]WY: TOR L BOLEYDOB: [id number] [place] [phone]: (HP) () [facility] 05/11/2025 TOR L BOLEYDOB: [address] [place] [address]Cgi: (HP) Primary Insurance:MEDICARE PART B INSCOPolicy Number: [id number] Date:1750-59-53Kfln Name:[facility] Administrators [facility] [address]Qmdkkayuw, [place] [address]OX: TOR L BOLEYDOB: [id number] [place] [address]Rdl: (HP) (WP) [facility] 05/08/2025 TOR L BOLEYDOB: [address] [place] [address]Nzn: (HP) Primary Insurance:MEDICARE PART B INSCOPolicy Number: [id number] Date:8869-78-61Xpcu Name:[facility] Administrators [facility] [place] [address]Iwkwvgjbs, [place] [address]YW: TOR L BOLEYDOB: [id number] [place] [phone]: (HP) (WP) [facility] 05/04/2025 TOR L BOLEYDOB: [address] [place] [address]Cxu: (HP) Primary Insurance:MEDICARE PART B INSCOPolicy Number: [id number] Date:6729-25-82Gzvt Name:[facility] Administrators [facility] [place] [address]Rmclmztsr, [place] [address]JT: TOR L BOLEYDOB: [id number] [place] [address]Hut: (HP) () [facility] 05/03/2025 TOR L BOLEYDOB: [address] [place] [address] 44643Uxj: (HP) Primary Insurance:MEDICARE OUTPATIENTPolicy Number: [id number] Date:Plan Name: TOR L BOLEYDOB: [id number] [address] [place] [address] 84092 [facility] 05/03/2025 TOR L BOLEYDOB: [address] [place] [address]Fho: (HP) Primary Insurance:MEDICARE PART B INSCOPolicy Number: [id number] Date:3624-94-21Qnqs Name:[facility] Administrators [facility] [place] [address]Qjbtozzuh, [place] [address]ES: TOR L BOLEYDOB: [id number] [place] [phone]: (HP) (WP) [facility] 05/02/2025 TOR L BOLEYDOB: [address] [place] [address] 56[address]Npd: (HP) Primary Insurance:MEDICARE OUTPATIENTPolicy Number: [id number] Date:Plan Name:GILBERTO Boyce BOLEYDOB: [id number] [address] [place] [address] 54970 [facility] 04/29/2025 TOR Boyce BOLEYDOB: [address] [place] [address] 41886Dzv: (HP) Primary Insurance:MEDICARE OUTPATIENTPolicy Number: [id number] Date:Plan Name:GILBERTO Boyce BOLEYDOB: [id number] [address] [place] [address] 15043 [facility] 04/11/2025 TOR Boyce BOLEYDOB: [address] [place] [phone]: (HP) Primary Insurance:MEDICARE PART B INSCOPolicy Number: [id number] Date:3035-62-76Rnaz Name:[facility] Administrators [address] [address]VO: TOR Boyce BOLEYDOB: 7699-11-50XRB[address] [place] [phone]: (HP) () [facility] 04/06/2025 TOR Boyce BOLEYDOB: [address] [place] [address]Fku: (HP) Primary Insurance:MEDICARE PART B INSCOPolicy Number: [id number] Date:3335-34-60Ndks Name:[facility] Administrators [address] [address]EF: TOR Boyce BOLEYDOB: [id number] [place] [address]Hil: (HP) (WP) [facility] 04/04/2025 TOR L BOLEYDOB: [address] [place] [address]Bip: (HP) Primary Insurance:MEDICARE PART B INSCOPolicy Number: [id number] Date:1358-37-02Ujld Name:[facility] Administrators [address] [address]SQ: TOR Boyce BOLEYDOB: [id number] [place] [phone]: (HP) (WP) [facility] 04/04/2025 TOR Boyce BOLEYDOB: [address] [place] [address]Nny: (HP) Primary Insurance:MEDICARE PART B INSCOPolicy Number: [id number] Date:1533-24-42Ffwd Name:[facility] Administrators [facility] [place] [address]Zmmvssqht, [place] [address]KG: TOR Boyce BOLEYDOB: [id number] [place] [phone]: (HP) (WP) [facility] 04/03/2025 TOR L BOLEYDOB: [address] [place] [address] 88[address]Dhu: (HP) Primary Insurance:MEDICARE OUTPATIENTPolicy Number: [id number] Date:Plan Name: TOR L BOLEYDOB: [id number] [address] [place] [address] 55441 [facility] 04/01/2025 TOR Boyce BOLEYDOB: [address] [place] [address] 08[address]Vai: (HP) Primary Insurance:MEDICARE OUTPATIENTPolicy Number: [id number] Date:Plan Name: TOR Boyce BOLEYDOB: [id number] [address] [place] [address] 70235 [facility] 03/30/2025 TOR Boyce BOLEYDOB: [address] [place] [address]Uln: (HP) Primary Insurance:MEDICARE PART B INSCOPolicy Number: [id number] Date:8965-45-97Erxu Name:[facility] Administrators [facility] [address]Udujtwztk, [place] [address]LD: TOR Boyce BOLEYDOB: [id number] [place] [phone]: (HP) (WP) [facility] 03/25/2025 TOR Austen BOLEYDOB: [address] [place] [phone]: (HP) Primary Insurance:MEDICARE PART B INSCOPolicy Number: [id number] Date:3092-52-33Xeov Name:[facility] Administrators [facility] [place] [address]Qjzvjjgaa, [place] [address]KY: TOR Austen BOLEYDOB: [id number] [place] [address]Xro: (HP) (WP) [facility] 03/23/2025 TOR Boyce BOLEYDOB: [address] [place] [address] 97[address]Avd: (HP) Primary Insurance:MEDICARE OUTPATIENTPolicy Number: [id number] Date:Plan Name: TOR Boyce BOLEYDOB: [id number] [address] [place] [address]303 [facility] 03/15/2025 TOR Boyce BOLEYDOB: [address] [place] [address]Zqu: (HP) Primary Insurance:MEDICARE PART B INSCOPolicy Number: [id number] Date:3179-87-03Xaqk Name:[facility] Administrators [address] [address]AS: TOR Boyce BOLEYDOB: [id number] [place] [address]Rns: (HP) (WP) [facility] 03/09/2025 TOR Boyce BOLEYDOB: [address] [place] [address]Qbf: (HP) Primary Insurance:MEDICARE PART B INSCOPolicy Number: [id number] Date:8034-40-61Ibgp Name:[facility] Administrators [address] [address]OO: TOR Boyce BOLEYDOB: [id number] [place] [address]Fys: (HP) (WP) [facility] 03/08/2025 TOR Boyce BOLEYDOB: [address] [place] [address] 30941Mnp: (HP) Primary Insurance:MEDICARE OUTPATIENTPolicy Number: [id number] Date:Plan Name:GILBERTO ASHLEYEYDOB: 1815-08-63SOH046 [address] [place] [address] [facility] 03/08/2025 TOR Boyce BOLEYDOB: [address] [place] [address]Byr: (HP) Primary Insurance:MEDICARE PART B INSCOPolicy Number: [id number] Date:5242-60-12Hcyu Name:MICHAEL Sena [address] [place] [address]UZ: TOR Boyce BOLEYDOB: [id number] [place] [address]Yyr: (HP) () [facility] 03/07/2025 TOR Boyce BOLEYDOB: [address] [place] [address] 23339Zzi: (HP) Primary Insurance:MEDICARE OUTPATIENTPolicy Number: [id number] Date:Plan Name:GILBERTO ASHLEYEYDOB: [id number] [address] [place] [address] 77079 [facility] 03/05/2025 TOR Boyce BOLEYDOB: [address] [place] [address] 71935Svy: (HP) Primary Insurance:MEDICARE OUTPATIENTPolicy Number: [id number] Date:Plan Name:GILBERTO ASHLEYEYDOB: [id number] [address] [place] [address] 21060 [facility] 02/16/2025 TOR Boyce BOLEYDOB: [address] [place] [phone]: (HP) Primary Insurance:MEDICARE PART B INSCOPolicy Number: [id number] Date:7842-10-47Ozng Name:[facility] Administrators [address] [address]GJ: TOR L BOLEYDOB: [id number] [place] [address]Yqn: (HP) () [facility] 02/14/2025 TOR L BOLEYDOB: [address] [place] [address]Uer: (HP) Primary Insurance:MEDICARE PART B INSCOPolicy Number: [id number] Date:8506-28-68Etmn Name:[facility] Administrators [address] [address]XD: TOR L BOLEYDOB: [id number] [place] [address]Zuh: (HP) (WP) [facility] 02/10/2025 TOR L BOLEYDOB: [address] [place] [address] 53592Tgf: (HP) Primary Insurance:MEDICARE OUTPATIENTPolicy Number: [id number] Date:Plan Name: TOR L BOLEYDOB: [id number] [address] [place] [address] 6[address] [facility] 02/01/2025 TOR L BOLEYDOB: [address] [place] [address]Kkw: (HP) Primary Insurance:MEDICARE PART B INSCOPolicy Number: [id number] Date:2952-49-67Wugp Name:[facility] Administrators [facility] [place] [place] [address]DA: TOR Boyce BOLEYDOB: [id number] [place] [address]Nwv: (HP) () [facility] 01/29/2025 TOR Boyce BOLEYDOB: [address] [place] [address] 35412Dkx: (HP) Primary Insurance:MEDICARE OUTPATIENTPolicy Number: [id number] Date:Plan Name: TOR Boyce BOLEYDOB: [id number] [address] [place] [address] 20644 [facility] 01/21/2025 TOR Boyce BOLEYDOB: [address] [place] [address] 56700Abx: (HP) Primary Insurance:MEDICARE OUTPATIENTPolicy Number: [id number] Date:Plan Name: TOR Boyce BOLEYDOB: [id number] [address] [place] [address] 95809 [facility] 12/22/2024 TOR Boyce BOLEYDOB: [address] [place] [address]Liq: (HP) Primary Insurance:MEDICARE PART B INSCOPolicy Number: [id number] Date:0810-00-35Pdjs Name:[facility] Administrators [facility] [place] [address]DG: TOR Boyce BOLEYDOB: [id number] [address] [place] [phone]: (HP) (WP) [facility] 12/22/2024 TOR L BOLEYDOB: [address] [place] [phone]: (HP) Primary Insurance:MEDICARE PART B INSCOPolicy Number: [id number] Date:5735-33-56Qxml Name:[facility] Administrators [facility] [place] [address]Jbykdqdcu, [place] [address]MS: TOR L BOLEYDOB: [id number] [place] [address]Wbh: (HP) (WP) [facility] 12/13/2024 TOR L BOLEYDOB: [address] [place] [address]Pvd: (HP) Primary Insurance:MEDICARE PART B INSCOPolicy Number: [id number] Date:1819-85-33Suzv Name:[facility] Administrators [facility] [place] [address]Npxtqyrih, [place] [address]DJ: TOR L BOLEYDOB: [id number] [place] [address]Qth: (HP) (WP) [facility] 12/10/2024 TOR L BOLEYDOB: [address] [place] [address] 94732Ngd: (HP) Primary Insurance:MEDICARE OUTPATIENTPolicy Number: [id number] Date:Plan Name: TOR L BOLEYDOB: [id number] [address] [place] [address] 33938 [facility] 11/15/2024 TOR L BOLEYDOB: [address] [place] [phone]: (HP) Primary Insurance:MEDICARE PART B INSCOPolicy Number: [id number] Date:9060-81-57Ufep Name:[facility] Administrators [address] [address]UW: TOR Boyce BOLEYDOB: [id number] [place] [address]Czu: (HP) (WP) [facility] 11/15/2024 TOR Boyce BOLEYDOB: [address] [place] [address]Pxp: (HP) Primary Insurance:MEDICARE PART B INSCOPolicy Number: [id number] Date:9509-21-42Bcpo Name:[facility] Administrators [address] [address]YI: TOR Boyce BOLEYDOB: [id number] [place] [address]Yvn: (HP) (WP) [facility] 11/06/2024 TOR Boyce BOLEYDOB: [address] [place] [address] 24844Igc: (HP) Primary Insurance:MEDICARE OUTPATIENTPolicy Number: [id number] Date:Plan Name:GILBERTO SANDOVALTOR L BOLEYDOB: [id number] [address] [place] [address] 05280 [facility] 10/13/2024 TOR Boyce BOLEYDOB: [address] [place] [address]Eyx: (HP) Primary Insurance:MEDICARE PART B INSCOPolicy Number: [id number] Date:2670-64-91Xoxa Name:[facility] Administrators [facility] [place] [address]PT: TOR L BOLEYDOB: [id number] [place] [phone]: (HP) (WP) [facility] 10/01/2024 TOR L BOLEYDOB: [address] [place] [address]Esq: (HP) Primary Insurance:MEDICARE PART B INSCOPolicy Number: [id number] Date:2820-35-31Qdxt Name:[facility] Administrators [facility] [place] [address]Cmsuvzysp [place] [address]XW: TOR L BOLEYDOB: 7053-91-83UTB[address] [place] [address]Nre: (HP) () [facility] 09/28/2024 TOR L BOLEYDOB: [address] [place] [address]Nfx: (HP) Primary Insurance:MEDICARE PART B INSCOPolicy Number: [id number] Date:4479-77-62Kaxo Name:[facility] Administrators [facility] [place] [address]Updduaiyd [place] [address]TF: TOR L BOLEYDOB: [id number] [place] [address]Wtl: (HP) (WP) [facility] 08/31/2024 TOR L BOLEYDOB: [address] [place] [address] 55[address]Ngj: (HP) Primary Insurance:MEDICARE OUTPATIENTPolicy Number: [id number] Date:Plan Name:GILBERTO TOR Boyce BOLEYDOB: [id number] [address] [place] [address] 15218 [facility] 08/16/2024 TOR Boyce BOLEYDOB: [address] [place] [address]Ndv: (HP) Primary Insurance:MEDICARE PART B INSCOPolicy Number: [id number] Date:3519-50-51Xgxi Name:[facility] Administrators [address] [address]MU: TOR Boyce BOLEYDOB: [id number] [place] [address]Xhd: (HP) () [facility] 08/11/2024 TOR Boyce BOLEYDOB: [address] [place] [address]Npg: (HP) Primary Insurance:MEDICARE PART B INSCOPolicy Number: [id number] Date:2081-96-86Gqcv Name:[facility] Administrators [address] [address]GW: TOR Boyce BOLEYDOB: [id number] [place] [phone]: (HP) () [facility] 08/06/2024 TOR Boyce BOLEYDOB: [address] [place] [address]Ncb: (HP) Primary Insurance:MEDICARE PART B INSCOPolicy Number: [id number] Date:0209-98-50Idgh Name:[facility] Administrators [address] [address]Nqdgneeji, [place] [address]KS: TOR BERMANDOB: 9606-20-56UEZ[address] [address]Cgj: (HP) (WP) [facility]
[2025-07-31 01:40] VITALS: BP 133/90; PULSE 74; RESP 16; TEMP 36.8; O2SAT 100; BMI 19.9
[2025-07-31] MEDS: 0.9% Normal Saline (500mL Bag) 500 ML 999 ML IV (02:56)
[2025-07-31 03:18] LABS: Hematocrit 37.9 % (37-47); Hemoglobin 12.8 g/dL (12.0-15.0); Immature Granulocytes Count 0.030 X10^3/uL (0.0-0.0); Mean Corp Hgb Conc 33.8 g/dL (32-36); Mean Corpuscular Volume 94.8 fL (81-99); Mean Platelet Vol. 8.9 fl (6.2-12.0); NRBC Flagged by Analyzer 0 % (0-5); Platelet Count 376 K/mm3 (150-450); RBC Distribution Width CV 14.1 % (11.6-14.6); RBC Distribution Width SD 49.0 fl (35.1-43.9); Red Blood Count 4.00 M/mm3 (4.2-5.4); White Blood Count 8.6 K/mm3 (4.4-11.0)
[2025-07-31 03:22] LABS: Mucous, Urine 0 SEEN /hpf (<or=2+); Red Blood Cells-Urine 0 SEEN /hpf (0-5)
[2025-07-31 03:24] LABS: Color, Urine Yellow (Yellow); Glucose, Dipstick Normal (Normal); Ketone-Dipstick Negative (Negative); Leukocyte Esterase-Dipstick Negative /ul (Negative); Nitrite-Dipstick Negative (Negative); Occult Blood-Urine 10 /ul (Negative); Protein-Dipstick Negative (Negative); Specific Gravity, Urine 1.015 (1.002-1.030); Urine Bilirubin Dipstick Negative (Negative)
[2025-07-31 03:27] LABS: Anion Gap 13 (5-15); BUN 9 mg/dL (4-19); BUN/Creat Ratio 9.9 RATIO (10-20); Calcium,Total 9.4 mg/dL (7.6-11.0); Carbon Dioxide 24.0 mmol/L (21.0-32.0); Chloride 101 mmol/L (98-108); Estimated Creatinine Clearance 72.60 ml/min (50-250); Glucose 98 mg/dL (70-99); Potassium 3.7 mmol/L (3.3-5.1)
[2025-07-31 03:40] LABS: Squamous Epithelial Cells - UA 0-5 SEEN /hpf (5-10)
--- NOTE | 2025-07-31 04:33 | EX.ED.DYSGE1 ---
HPI History of Present Illness Chief Complaint: Flank Pain Informant: patient Narrative Narrative: Patient is a 34-year-old female with a history of cervical cancer and left nephrostomy presenting with worsening left flank pain for the past week or so. - Reports left flank pain has worsened over the past week; pain has been present since nephrostomy placement in 2019. - Pain is partially alleviated by oxycodone. - Scheduled to see a specialist on , the , to discuss potential nephrectomy. - Reports new onset vaginal discomfort over the past week, not associated with urination or wiping; denies vaginal discharge or bleeding. - Denies constipation. - Reports emesis, but attributes it to chronic stomach issues; denies fever. - Not currently undergoing chemotherapy. - Noted a small amount of discharge from nephrostomy site over the past few days, which is unusual for her. - Scheduled for nephrostomy change on the . - Has a history of recurrent kidney infections, stating that current pain is similar but more severe; denies fever. Basically patient states these symptoms are relatively chronic since she has had chronic left ureteral obstruction, hence the nephrostomy, but worse and she is concerned maybe there is an infection. Her nephrostomy has continued to put out good amount of urine that looks similar to usual, and without blood or being cloudy. [facility] Medical History History of MDR Pseudomonas aeruginosa infection Nephrostomy present Kidney failure Kidney stone Cervical cancer Home Medications Medication Instructions Recorded Last Taken Type escitalopram oxalate 20 mg tablet 20 mg PO DAILY 04/09/25 Unknown History (Lexapro) lorazepam 1 mg tablet (Ativan) 1 mg PO Q8H PRN anxiety 04/09/25 06/03/25 06:00 History ondansetron HCl 4 mg tablet 4 mg PO Q6H PRN nausea and vomiting 04/09/25 Unknown History oxycodone 5 mg tablet 10 mg PO Q6H PRN pain 04/09/25 06/03/25 06:00 History ondansetron 4 mg disintegrating 4 mg PO Q8H PRN PRN Nausea #10 tabs 06/04/25 Unknown Rx tablet ciprofloxacin HCl 500 mg tablet 500 mg PO BID #14 TABLETS 07/31/25 Unknown Rx Allergy/AdvReac Type Severity Reaction Status Date / Time haloperidol (From Haldol) Allergy Angioedema Verified 07/31/25 01:40 Penicillins (PCN) Allergy Hives Verified 07/31/25 01:40 Social History Smoking Status: Current every day smoker tobacco type: cigarettes and e-cigarettes ROS ROS ED Constitutional Constitutional ED: Denies chills or fever(s) Eyes Eyes: Denies change in vision or diplopia ENT ENT ED: Denies rhinorrhea or sore throat Cardiovascular Cardiovascular: Denies chest pain or palpitations Respiratory/Chest Respiratory/Chest: Denies cough or dyspnea Gastrointestinal Gastrointestinal: Reports abdominal pain, nausea and vomiting; Denies diarrhea Genitourinary Genitourinary ED: Reports as per HPI, flank pain and other Details: Some vaginal discomfort in the past several days that does not hurt to wipe or palpate. ; Denies dysuria or hematuria Musculoskeletal Musculoskeletal: Denies back pain or neck pain Integumentary Denies abscess or rash Neurologic Neurologic: Denies headache(s), paresthesias or weakness Psychiatric Psychiatric: Denies anxiety or suicidal thoughts EXAM Physical Exam Const Vital Signs: 07/31/25 01:40 Temperature 98.2 F Temperature Source Oral Pulse Rate 74 Respiratory Rate 16 Blood Pressure 133/90 H Blood Pressure Mean 104 Pulse Ox 100 Positive well nourished and well developed General Appearance ED: well developed and NAD HEENT Reports moist mucous membranes normocephalic and atraumatic Eyes PERRL and EOMs intact bilaterally Neck full ROM and supple Resp normal respiratory effort and clear to auscultation bilaterally Cardio regular rate, regular rhythm and no murmurs GI non-distended GI Narrative: Very mild subjective tenderness throughout the left abdomen no guarding or rebound. Otherwise benign abdomen. Auscultation: normoactive bowel sounds Palpation: soft Back/Spine no CVA tenderness Back/Spine Narrative: Left nephrostomy site is benign appearing, there is some dried discharge at the site but there is no erythema or tenderness. No active leaking around the catheter. General Back: other FROM Extremity normal to inspection General Extremety ED: Negative for edema, pulses abnormal or tenderness General Extremity: Negative for edema or pulses abnormal Neuro oriented x3, CN's II-XII intact bilaterally and no sensory deficits noted Sensorium / Orientation: awake and alert Motor Exam: strength 5/5 throughout Psych mental status grossly normal Skin no rashes or lesions noted and no wounds MDM MDM MDM Narrative Medical decision making narrative: Ancillary blood tests are normal showing renal function normal, and no leukocytosis or leftward shift. Urinalysis from the nephrostomy is very benign. I do not think she needs repeat imaging based on all of this, and the fact that her symptoms are relatively chronic, but given the discharge she has been having from the nephrostomy site I think reasonable to treat her with antibiotics. She was given IV Rocephin here, several doses of pain medication, and a prescription for Cipro and advised to follow-up. She is comfortable with the plan. Lab Data Attestation: I reviewed the patient's lab results. Labs: Laboratory Results - last 24 hr 07/31/25 07/31/25 02:55 03:16 WBC 8.6 RBC 4.00 L Hgb 12.8 Hct 37.9 MCV 94.8 MCH 32.0 MCHC 33.8 RDW Std Deviation 49.0 H RDW Coeff of [place] 14.1 Plt Count 376 MPV 8.9 Immature Gran % (Auto) 0.300 Neut % (Auto) 61.2 Lymph % (Auto) 26.5 [place] % (Auto) 9.7 Eos % (Auto) 1.5 Baso % (Auto) 0.8 Absolute Neuts (auto) 5.3 Absolute Lymphs (auto) 2.28 Nucleated RBC % 0 Sodium 138 Potassium 3.7 Chloride 101 Carbon Dioxide 24.0 Anion Gap 13 BUN 9 Creatinine 0.92 Estim Creat Clear Calc 72.60 Est GFR (MDRD) Non-Af 83 BUN/Creatinine Ratio 9.9 L Glucose 98 Calcium 9.4 Urine Color Yellow Urine Clarity Clear Urine pH 6.5 Ur Specific [place] 1.015 Urine Protein Negative Urine Glucose (UA) Normal Urine Ketones Negative Urine Occult Blood 10 H Urine Nitrite Negative Urine Bilirubin Negative Urine Urobilinogen Normal Ur Leukocyte Esterase Negative Urine RBC 0 SEEN Urine WBC 0 SEEN Ur Squamous Epith Cells 0-5 SEEN Urine Bacteria 0 SEEN Urine Mucus 0 SEEN Discharge Plan Triage Chief Complaint: Flank Pain ED Provider: Jatin Garcia Dx/Rx/DC Orders Clinical Impression: Infection associated with nephrostomy catheter, Acute left flank pain, Ureterolithiasis Instructions: Catheter-Linked Urinary Tract ... Prescriptions: New ciprofloxacin HCl 500 mg tablet 500 mg PO BID Qty: 14 0RF No Action ondansetron 4 mg tablet,disintegrating 4 mg PO Q8H PRN PRN (Reason: Nausea) Qty: 10 0RF oxycodone 5 mg tablet 10 mg PO Q6H PRN (Reason: pain) lorazepam [Ativan] 1 mg tablet 1 mg PO Q8H PRN (Reason: anxiety) escitalopram oxalate [Lexapro] 20 mg tablet 20 mg PO DAILY ondansetron HCl 4 mg tablet 4 mg PO Q6H PRN (Reason: nausea and vomiting) Primary Care Provider: OLE GREEN Referrals: OLE GREEN [Other] Your urologist [Other] - Keep Jeannie appointment Print Language: New Zealander Disposition Disposition: Home, Self Care
[2025-07-31 04:52] VITALS: BP 129/74; PULSE 75; RESP 18; TEMP 36.7; O2SAT 99
== END 2025-07-31 06:11 | disposition home or self-care (01) ==
PROVIDERS: Emergency Provider Emergency Medicine; Visit Provider Emergency Medicine
DX: T83.512A Infection and inflammatory reaction due to nephrostomy catheter, initial encounter (principal); Z93.6 Other artificial openings of urinary tract status; R10.9 Unspecified abdominal pain; N20.1 Calculus of ureter; F17.210 Nicotine dependence, cigarettes, uncomplicated; Z85.41 Personal history of malignant neoplasm of cervix uteri
CPT/HCPCS: 80048; 81001; 85025; 87086; 87088; 96361; 96365; 96366; 96375; 99283; A4216; J2405

== ENCOUNTER 2025-07-31 23:21 | Emergency (ER) | payer MEDICARE, SELFPAY ==
--- OUTSIDE RECORDS SUMMARY | 2025-07-26 16:54 | XMS RPT_ITS ---
Author Name Auto Generated Organization OHIP Support Name Relationship Address Phone ANMOL BERMAN Next of Kin Unknown + ANMOL BERMAN Next of Kin Unknown + HAM GRISSOM Next of Kin Unknown +[phone] ANMOL BERMAN Next of Kin Unknown + ANMOL BERMAN Next of Kin Unknown + JESSICA BERMAN Next of Kin Unknown [phone] VALENTÍN ALCANTARA Next of Kin Unknown [phone] ANMOL BERMAN Next of Kin Unknown + ANMOL BERMAN Next of Kin Unknown + ANMOL BERMAN Next of Kin Unknown + ANMOL BERMAN Next of Kin Unknown + ANMOL BERMAN Next of Kin Unknown + ANMOL BERMAN Next of Kin Unknown + HAM GRISSOM Next of Kin Unknown +[phone] JESSICA BERMAN Next of Kin Unknown +[phone] BRIJESH MOCTEZUMA Next of Kin Unknown + ~ (330 VALENTÍN ALCANTARA Next of Kin Unknown [phone] NOT GIVEN Next of Kin Unknown Unavailable [place] HADDAD Next of Kin [address] [place], [place] [id number] + BRIJESH MOCTEZUMA Next of Kin Unknown + ~ (330 NOT GIVEN Next of Kin Unknown Unavailable HADDADHAFSAA Next of Kin [address] [place], [place] [id number] + NOT GIVEN Next of Kin Unknown Unavailable HADDAD, [place] Next of Kin [address] [place], [place] [id number] + NOT GIVEN Next of Kin Unknown Unavailable HADADD, [place] Next of Kin [address] [place], [place] [id number] + BRIJESH MOCTEZUMA Next of Kin Unknown + ~ (330 NOT GIVEN Next of Kin Unknown Unavailable HADDADHAFSAA Next of Kin [address] [place], [place] [id number] + BRIJESH MOCTEZUMA Next of Kin Unknown + ~ (330 HAM GRISSOM Next of Kin Unknown [phone] JESSICA BERMAN Next of Kin Unknown [phone] BRIJESH MOCTEZUMA Next of Kin Unknown + ~ (330 VALENTÍN ALCANTARA Next of Kin Unknown [phone] BRIJESH MOCTEZUMA Next of Kin Unknown + ~ (330 BRIJESH MOCTEZUMA Next of Kin Unknown + ~ (330 NOT GIVEN Next of Kin Unknown Unavailable HADDADHAFSAA Next of Kin [address] [place], [place] [id number] + BRIJESH MOCTEZUMA Next of Kin Unknown + ~ (330 NOT GIVEN Next of Kin Unknown Unavailable HADDADJONATHONAUSTIN Next of Kin [address] [place], [place] [phone] + NOT GIVEN Next of Kin Unknown Unavailable HADDAD, [place] Next of Kin [address] [place], [place] [id number] + HAM GRISSOM Next of Kin Unknown [phone] ANTONELLAANMOL LIEBERMANALD Next of Kin Unknown [phone] BRIJESH MOCTEZUMA Next of Kin Unknown + ~ (330 LINVALENTÍN PEOPLES Next of Kin Unknown [phone] ANTONELLA, DON Next of Kin Unknown + BRIJESH MOCTEZUMA Next of Kin Unknown + ~ (330 ANTONELLA, DON Next of Kin Unknown + ANTONELLA, DON Next of Kin Unknown + ANTONELLA, DON Next of Kin Unknown + ANTONELLA, DON Next of Kin Unknown + NOT GIVEN Next of Kin Unknown Unavailable [place] HADDAD Next of Kin [address] [place], [place] [phone] + NOT GIVEN Next of Kin Unknown Unavailable [place] HADDAD Next of Kin [address] [place], [place] [id number] + HAM GRISSOM Next of Kin Unknown +[phone] ANTONELLA, DON Next of Kin Unknown + ANTONELLA, DON Next of Kin Unknown + ANTONELLA, JESSICA Next of Kin Unknown [phone] QUINTONVALENTÍN Next of Kin Unknown [phone] ANTONELLA, DON Next of Kin Unknown + ANTONELLA, DON Next of Kin Unknown + NOT GIVEN Next of Kin Unknown Unavailable [place] HADDAD Next of Kin [address] [place], [place] [id number] + ANTONELLA, DON Next of Kin Unknown + ANTONELLA, DON Next of Kin Unknown + ANTONELLA, DON Next of Kin Unknown + ANTONELLA, DON Next of Kin Unknown + NOT GIVEN Next of Kin Unknown Unavailable [place] HADDAD Next of Kin [address] [facility], [place] [id number] + HAM GRISSOM Next of Kin Unknown +[phone] ANTONELLA, DON Next of Kin Unknown + ANTONELLA, DON Next of Kin Unknown + ANTONELLA, JESSICA Next of Kin Unknown [phone] DOTVALENTÍN CONWAY Next of Kin Unknown [phone] NOT GIVEN Next of Kin Unknown Unavailable [place] HADDAD Next of Kin [address] [facility] [phone] + NOT GIVEN Next of Kin Unknown Unavailable [place] HADDAD Next of Kin [address] [facility] [id number] + ANTONELLA, DON Next of Kin Unknown + ANTONELLA, DON Next of Kin Unknown + HAM GRISSOM Next of Kin Unknown [phone] ANTONELLA, DON Next of Kin Unknown + ANTONELLA, DON Next of Kin Unknown + ANTONELLA, JESSICA Next of Kin Unknown [phone] DOTMAN VALENTÍN Next of Kin Unknown [phone] NOT GIVEN Next of Kin Unknown Unavailable [place] HADDAD Next of Kin [address] [facility], [place] [phone] + ANTONELLA, DON Next of Kin Unknown + ANTONELLA, DON Next of Kin Unknown + NOT GIVEN Next of Kin Unknown Unavailable [place] HADDAD Next of Kin [address] [facility], [place] [phone] + NOT GIVEN Next of Kin Unknown Unavailable [place] HADDAD Next of Kin [address] [facility], [place] [phone] + ANTONELLA, DON Next of Kin Unknown + ANTONELLA, DON Next of Kin Unknown + ANTONELLA, DON Next of Kin Unknown + ANTONELLA, DON Next of Kin Unknown + HAM GRISSOM Next of Kin Unknown [phone] ANTONELLA, DON Next of Kin Unknown + ANTONELLA, DON Next of Kin Unknown + ANTONELLA, JESSICA Next of Kin Unknown [phone] VALENTÍN ALCANTARA Next of Kin Unknown [phone] NOT GIVEN Next of Kin Unknown Unavailable [place] HADDAD Next of Kin [address] [facility], [place] [phone] + ANTONELLA, DON Next of Kin Unknown + ANTONELLA, DON Next of Kin Unknown + HAM GRISSOM Next of Kin Unknown +[phone] ANTONELLA, DON Next of Kin Unknown + ANTONELLA, DON Next of Kin Unknown + ANTONELLA, JESSICA Next of Kin Unknown [phone] VALENTÍN ALCANTARA Next of Kin Unknown [phone] NOT GIVEN Next of Kin Unknown Unavailable HADDADAUSTIN SLADE Next of Kin [address] [place], [place] [id number] + ANTONELLA, DON Next of Kin Unknown + ANTONELLA, DON Next of Kin Unknown + ANTONELLA, DON Next of Kin Unknown + ANTONELLA, DON Next of Kin Unknown + HAM GRISSOM Next of Kin Unknown [phone] ANTONELLA, DON Next of Kin Unknown + ANTONELLA, DON Next of Kin Unknown + JESSICA BERMAN Next of Kin Unknown [phone] VALENTÍN ALCANTARA Next of Kin Unknown [phone] NOT GIVEN Next of Kin Unknown Unavailable [place] HADDAD Next of Kin [address] [place], [place] [id number] + JACIELSERA Next of Kin Unknown +[phone] ANTONELLA, DON Next of Kin Unknown + ANTONELLA, DON Next of Kin Unknown + JESSICA BERMAN Next of Kin Unknown [phone] VALENTÍN ALCANTARA Next of Kin Unknown [phone] ANTONELLA, DON Next of Kin Unknown + ANTONELLA, DON Next of Kin Unknown + ANTONELLA, ANMOL Next of Kin Unknown + ANMOL BERMAN Next of Kin Unknown + Care Team Providers Care Finance Lead Name Role Phone ROD RODRIGUEZ Attending Unavailable ROD RODRIGUEZ Primary Care Unavailable ROD RODRIGUEZ Admitting Unavailable ALICIA KESSLER MD Attending Unavailable ALICIA KESSLER MD Primary Care Unavailable ALICIA KESSLER MD Admitting Unavailable GONZALEZ PINEDA DO Primary Care Unavailable GONZALEZ PINEDA DO Admitting Unavailable GONZALEZ PINEDA DO Attending Unavailable ROD RODRIGUEZ Attending Unavailable ROD RODRIGUEZ Primary Care Unavailable ROD RODRIGUEZ Admitting Unavailable GADIEL QUEZADAOTHY Attending Unavailable BEATRICE QUEZADA DO Primary Care Unavailable BEATRICE QUEZADA DO Admitting Unavailable GONZALEZ PINEDA DO Primary Care Unavailable GONZALEZ PINEDA DO Admitting Unavailable GONZALEZ PINEDA DO Attending Unavailable GONZALEZ PINEDA DO Primary Care Unavailable GONZALEZ PINEDA DO Admitting Unavailable GONZALEZ PINEDA DO Attending Unavailable GONZALEZ PINEDA DO Primary Care Unavailable GONZALEZ PINEDA DO Admitting Unavailable GONZALEZ PINEDA DO Attending Unavailable GONZALEZ PINEDA DO Primary Care Unavailable DIDGONZALEZ ORTIZ DO Admitting Unavailable DIDGONZALEZ ORTIZ DO Attending Unavailable KORINA AGUILAR MD Attending Unavailable KORINA AGUILAR MD Primary Care Unavailable KORINA AGUILAR MD Admitting Unavailable LEMASTERSPEPE Attending Unavailable LEMASTERSPEPE Primary Care Unavailable LEMASTERS, PEPE Anna Admitting Unavailable WINTER, ANDREW C Primary Care Unavailable WINTER, ANDREW C Admitting Unavailable WINTER, ANDREW C Attending Unavailable GONZALEZ PINEDA DO Primary Care Unavailable DIDGONZALEZ ORTIZ DO Admitting Unavailable DIDGONZALEZ ORTIZ DO Attending Unavailable DIDGONZALEZ ORTIZ DO Attending Unavailable DIDGONZALEZ ORTIZ DO Primary Care Unavailable DIDGONZALEZ ORTIZ DO Admitting Unavailable CSERNYIK, CHRISTO DO Attending Unavailable CSERNYIK, CHRISTO DO Primary Care Unavailable CSERNYIK, CHRISTO DO Admitting Unavailable DIDGONZALEZ ORTIZ DO Primary Care Unavailable DIDGONZALEZ ORTIZ DO Admitting Unavailable DIDGONZALEZ ORTIZ DO Attending Unavailable GABBY MEYERS DO Admitting Unavailable GABBY MEYERS DO Attending Unavailable GABBY MEYERS DO Primary Care Unavailable ALICIA KESSLER MD Attending Unavailable ALICIA KESSLER MD Primary Care Unavailable ALICIA KESSLER MD Admitting Unavailable DIDGONZALEZ ORTIZ DO Primary Care Unavailable DIDGONZALEZ ORTIZ DO Admitting Unavailable DIDGONZALEZ ORTIZ DO Attending Unavailable WINTER, ANDREW C Attending Unavailable WINTER, ANDREW C Primary Care Unavailable WINTER, ANDREW C Admitting Unavailable SOLIS PACE MD Attending Unavailable SOLIS PACE MD Primary Care Unavailable SOLIS PACE MD Primary Care Unavailable DELMAR MICHAEL DO Attending Unavailable ROD ALEXANDRE MD Attending Unavailable OSLIS PACE MD Primary Care Unavailable NASRIN ISABEL MD Attending Unavailable SOLIS PACE MD Primary Care Unavailable NAYELI BRICE DO Consulting UnavailNASRIN Morrow MD Attending Unavailable SOLIS PACE MD Primary Care Unavailable GARTH GOSS MD Consulting Unavailable NASRIN ISABEL MD Attending Unavailable SOLIS PACE MD Primary Care Unavailable AVILA MILLAN-PINA GAITAN Attending Unavail able SOLIS PACE MD Primary Care Unavailable SOLIS PACE MD Attending Unavailable SOLIS PACE MD Primary Care Unavailable NASRIN ISABEL MD Attending Unavailable SOLIS PACE MD Primary Care Unavailable SOLIS PACE MD Attending Unavailable SOLIS PACE MD Primary Care Unavailable CLOTILDE HERNÁNDEZ DO Attending Unavailable PACE MD, SOLIS A Primary Care Unavailable GONZALEZ SANDERS MD Attending Unavailable SANJEEV LORA, SOLIS A Primary Care Unavailable NASRIN ISAEBL MD Attending Unavailable SANJEEV LORA, SOLIS A Primary Care Unavailable SANJEEV LORA, SOLIS A Attending Unavailable SANJEEV LORA, SOLIS A Primary Care Unavailable MATHEW LORA, GONZALEZ Patterson Attending Unavailable SANJEEV LORA, SOLIS A Primary Care Unavailable SANJEEV LORA, SOLIS A Attending Unavailable SANJEEV LORA, SOLIS A Primary Care Unavailable SANJEEV LORA, SOLIS A Attending Unavailable SANJEEV LORA, SOLIS A Primary Care Unavailable GONZALEZ SANDERS MD Attending Unavailable SANJEEV LORA, SOLIS A Primary Care Unavailable AVILA OMER, PINA Jenkins Attending Unavail able SANJEEV LORA, SOLIS A Primary Care Unavailable SOLIS MONK MD Consulting Unavailable CLOTILDE HERNÁNDEZ DO Consulting Unavailable ROD MACKEY DO Attending Unavailable JENNI LORA, DR JURADO Admitting Unavailab roxann PACE MD, SOLIS A Primary Care Unavailable SOLIS GRAMAJO MD, I Consulting Unavailable JENNI LORA, DR JURADO Admitting Unavailab roxann PACE MD, SOLIS A Primary Care Unavailable SANTINO SAWYER MD Consulting Unavailable HENRY GUDINO, DR SEGAL Attending Unavailable GONZALEZ SANDERS MD Consulting Unavailable SOLIS PACE MD Consulting Unavailable BHUPENDRA GALVEZ DO Admitting Unavailable GONZALEZ SANDERS MD Consulting Unavailable SANJEEV LORA, SOLIS A Primary Care Unavailable FRED CARBAJAL MD Attending Unavailable CLOTILDE HERNÁNDEZ DO Consulting Unavailable NASRIN ISABEL MD Attending Unavailable SANJEEV LORA, SOLIS A Primary Care Unavailable SOLIS GRAMAJO MD, I Consulting Unavailable ROD ALEXANDRE MD Attending Unavailable SANJEEV LORA, SOLIS A Primary Care Unavailable JASKARAN MEDRANO MD Attending Unavailable SANJEEV LORA, SOLIS A Primary Care Unavailable ADAN GUDINO, DR ARLEY Germain Attending Unavailable SOLIS PACE MD A Primary Care Unavailable NASRIN ISABEL MD Attending Unavailable SANJEEV LORA, SOLIS A Primary Care Unavailable AVILA OMER, PINA Jenkins Attending Unavail able SANJEEV LORA, SOLIS A Primary Care Unavailable DR OLI HERRERA MD Admitting Unavailable SANJEEV LORA, SOLIS A Primary Care Unavailable TIFFANY ARCHULETA MD Attending Unavailable SANJEEV LORA, SOLIS A Primary Care Unavailable MADELINE CHAVEZ Attending Unavailable SANJEEV LORA, SOLIS A Primary Care Unavailable AVILA OMER, PINA Jenkins Attending Unavail able TADEO LEIJA PA-C Attending Unavailcydney PACE MD, SOLIS A Primary Care Unavailable LEAHON DO, CLOTILDE S Consulting Unavailable VON BACA Attending Unavailable SANJEEV LORA, SOLIS Jenkins Primary Care Unavailable MARIN COTE MD Consulting Unavailable SANJEEV LORA, SOLIS Jenkins Primary Care Unavailable NASRIN ISABEL MD Attending Unavailable LEONARDO NULL Attending Unavailleslee PACE MD, SOLIS Jenkins Primary Care Unavailable SANJEEV LORA, SOLIS Jenkins Attending Unavailable SANJEEV LORA, SOLIS Jenkins Primary Care Unavailable PROBLEMS DATE TYPE CONDITION / CODE ATTENDING STATUS [facility] 06/07/2025 Admitting Diagnosis Unspecified abdominal pain / R109(ICD-10) PEPE VICTORIA [facility] 06/07/2025 Principle Diagnosis Unspecified abdominal pain / R109(ICD-10) PEPE VICTORIA [facility] 06/07/2025 Secondary Diagnosis Unspecified kidney failure / N19(ICD-10) PEPE VICTORIA [facility] 06/07/2025 Secondary Diagnosis Personal history of malignant neoplasm of cervix uteri / Z8541(ICD-10) PEPE VICTORIA [facility] 06/05/2025 Admitting Diagnosis Nausea with vomiting, unspecified / R112(ICD-10) ANDREW WINTER [facility] 06/05/2025 Principle Diagnosis Cystitis, unspecified with hematuria / N3091(ICD-10) ANDREW WINTER [facility] 06/05/2025 Secondary Diagnosis Anxiety disorder, unspecified / F419(ICD-10) ANDREW WINTER [facility] 06/05/2025 Secondary Diagnosis Depression, unspecified / F32A(ICD-10) ANDREW WINTER [facility] 06/05/2025 Secondary Diagnosis Other long term care administrator (current) drug therapy / Q42895(ICD-10) ANDREW WINTER [facility] 06/05/2025 Secondary Diagnosis 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 / F71117(ICD-10) ANDREW WINTER [facility] 06/05/2025 Secondary Diagnosis Allergy status to penicillin / Z880(ICD-10) ANDREW WINTER [facility] 06/05/2025 Secondary Diagnosis Allergy status to other drugs, medicaments and biological substances / Z888(ICD-10) ANDREW WINTER [facility] 06/05/2025 Secondary Diagnosis Nicotine dependence, other tobacco product, uncomplicated / G30533(ICD-10) ANDREW WINTER [facility] 06/01/2025 Principle Diagnosis Nausea with vomiting, unspecified / R112(ICD-10) EMMA GONZALEZ [facility] 06/01/2025 Secondary Diagnosis Cannabis use, unspecified, uncomplicated / F1290(ICD-10) GONZALEZ PINEDA [facility] 05/27/2025 Unknown Neoplasm related pain (acute) (chronic) / G89.3(ICD-10) [place]HE [place] [facility] [place] Final Diagnosis (Discharge) Infection and inflammatory reaction due to nephrostomy catheter, initial encounter / T83.512A(ICD-10) KATHE [place], [facility] [place]/27/[place] Final Diagnosis (Discharge) Pyonephrosis / N13.6(ICD-10) KATHE [place]A, [facility] [place]/27/2025 Final Diagnosis (Discharge) Other artificial openings of urinary tract status / Z93.6(ICD-10) KATHE L[place]A, [facility] [place]/27/2025 Final Diagnosis (Discharge) Patient's noncompliance with other medical treatment and regimen due to unspecified reason / Z91.199(ICD-10) KATHE [place]A, [facility] [place]/27/[place]25 Final Diagnosis (Discharge) Unspecified asthma, uncomplicated / J45.909(ICD-10) KATHE LORA, [facility] [place]/27/2025 Final Diagnosis (Discharge) Anxiety disorder, unspecified / F41.9(ICD-10) KATHE LORA, [facility] [place]/27/2025 Final Diagnosis (Discharge) Depression, unspecified / F32.A(ICD-10) KATHE [place]ORA, [facility] [place]/27/2025 Final Diagnosis (Discharge) Chronic pain syndrome / G89.4(ICD-10) KATHE [place]A, [facility] [place]/27/[place]25 Final Diagnosis (Discharge) Personal history of antineoplastic chemotherapy / Z92.21(ICD-10) KATHE LORA, [facility] [place]/27/2025 Final Diagnosis (Discharge) Personal history of irradiation / Z92.3(ICD-10) KATHE OLRA, [facility] 05/27/2025 Final Diagnosis (Discharge) Personal history of malignant neoplasm of cervix uteri / Z85.41(ICD-10) KATHE LORA, [facility] [place]/27/2025 Final Diagnosis (Discharge) Urinary catheterization as the cause of abnormal reaction of the patient, or of later complication, without mention of misadventure at the time of the procedure / Y84.6(ICD-10) KATHE LORA, [facility] [place]/26/2025 Principle Diagnosis Cystitis, unspecified without hematuria / N3090(ICD-10) GONZALEZ PINEDA DO [facility] 05/26/2025 Secondary Diagnosis Presence of urogenital implants / Z960(ICD-10) DIDGONZALEZ ORTIZ DO [facility] 05/26/2025 Secondary Diagnosis Personal history of urinary calculi / X30182(ICD-10) GONZALEZ PINEDA DO [facility] 05/26/2025 Secondary Diagnosis Allergy status to narcotic agent / Z885(ICD-10) GONZALEZ PINEDA DO [facility] 05/08/2025 Unknown Vomiting, unspec ified / R11.10(ICD-10) JASKARAN MEDRANO MD [facility] 05/04/2025 Unknown Encounter for palliative care / Z51.5(ICD-10) NARENDRA GUDINO [facility] 05/04/2025 Unknown Generalized anxi ety disorder / F41.1(ICD-10) NARENDRA GUDINO [facility] 04/04/2025 Unknown Malignant neopla sm of cervix uteri, unspecified / C53.9(ICD-10) DR LUZMA FIGUEROA DO [facility] 04/04/2025 Unknown Calculus of uret er / N20.1(ICD-10) DR LUZMA FIGUEROA DO [facility] 04/04/2025 Unknown Unspecified hydronephrosis / N13.30(ICD-10) DR LUZMA FIGUEROA DO [facility] 04/04/2025 Unknown Urinary tract infection, site not specified / N39.0(ICD-10) DR LUZMA FIGUEROA DO [facility] 03/09/2025 Unknown Unspecified abdo kg pain / R10.9(ICD-10) ALEC GUDINO DELMAR [facility] 11/15/2024 Admitting Diagnosis Malignant neoplasm of exocervix / C53.1(ICD-10) NASRIN ISABEL MD [facility] MAIN PROCEDURES No Procedure Records Found RESULTS IR NEPHROSTOMY EXCHANGE Observed: 2024 8:00 AM Status: F Source: [facility] ORIGINAL PROCEDURE: Percutaneous nephrostomy tube exchange with fluoroscopy CLINICAL STATEMENT: Cervical CA, LEFT ureteral obstruction LATERALITY: LEFT RESTORATION OFFICER: Sky Newsome PA-C MATERIALS: 12 Fr X 35 cm nephrostomy drainage catheter Weever Appsson wire Drainage bag CONTRAST: 8 mL Isovue 300 ANESTHESIA: General, under anesthesia direction FLUORO: 0.9 minutes AIR KERMA DOSE: 3 mGy The [...] using 2 identifiers, confirming site and side. Tie Buyer image with contrast injection demonstrates stable appearance [...] nephrostomy tube change. Procedure was performed by Sky Newsome PA-C Interpreted by: Markos Luong Preliminary Report By: Sky Newsome Electronically signed By Markos Luong Dictated Date: 06/29/2025 3:00:06 PM Prelim Date: 06/29/2025 3:02:50 PM Sign Date: 06/30/2025 4:18:03 PM Ordering Provider: NASRIN ISABEL URINALYSIS Collected: 2:15 PM Status: F Source: [facility] TYPE CODE TESTS RESULT OUT OF RANGE REFERENCE UNITS LAB URINALYSIS([facility] [place]) URINALYSIS Result Comment: URINALYSIS LAB Specimen Type(LOINC) Specimen Type R LAB Color(LOINC) Color p.yel NORMAL: YELLOW LAB Clarity(LOINC) Clarity clear RAJIV L: CLEAR LAB ph(LOINC) ph 8 NORMAL: 5.0-8.0 LAB Protein(LOINC) Protein NEG RAJIV L: NEGATIVE LAB Glucose(LOINC) Glucose NORM RAJIV L: NORMAL LAB Ketone(LOINC) Ketone 5 Abnormal NORMAL : NEGATIVE LAB Bilirubin(LOIN C) Bilirubin NEG NORMAL: NEGATIVE LAB Blood(LOINC) Blood 10 Abnormal NORMAL: NEGATIVE LAB Urobilinog([facility] [place]) Urobilinog NORM NORMAL: NORMAL LAB Sp Stem(LOINC) Sp Stem 1.015 NORMAL: 1.010-1.030 LAB Nitrite(LOINC) Nitrite NEG RAJIV L: NEGATIVE LAB Leukocytes([facility] [place]) Leukocytes NEG NORMAL: NEGATIVE LAB Microscopic(LO INC) Microscopic SEE BELOW Result Comment: MICROSCOPIC LAB Wbc(LOINC) Wbc 1-5 0-5/hpf LAB Rbc(LOINC) Rbc 0-5 0-3/hpf LAB Casts(LOINC) Casts NONE LAB Crystals(LOINC ) Crystals NONE LAB Amorphous(LOIN C) Amorphous NONE LAB Bacteria(LOINC ) Bacteria NONE LAB Epi Cells(LOINC) Epi Cells NONE LAB Mucous(LOINC) Mucous NONE LAB Yeast(LOINC) Yeast NONE Performed By: #### [id number] ## ## [facility],[address] [place] [address] LACTATE Collected: 1:16 PM Status: F Source: [facility] TYPE CODE TESTS RESULT OUT OF RANGE REFERENCE UNITS LAB LACTATE(LOINC) LACTATE 0.7 0.4 - 2.0 mmol/L Performed By: #### [id number] ## ## [facility],[address] [place] [id number] CBC + DIFF Collected: 5 1:16 PM Status: F Source: [facility] TYPE CODE TESTS RESULT OUT OF RANGE REFERENCE UNITS LAB CBC + DIFF(LOINC) CBC + DIFF Result Comment: CBC-COMPLETE BLOOD COUNT LAB WBC(LOINC) WBC 14.6 High 4.5 - 10.8 x 10EE3/UL LAB RBC(LOINC) RBC 3.86 Low 4.10 - 5.30 x 10EE6/UL LAB HEMOGLOBIN([facility] [place]) HEMOGLOBIN 13.5 12.0 - 16.0 g/dl LAB HEMATOCRIT([facility] [place]) HEMATOCRIT 37.9 34.0 - 46.0 % LAB MCV(LOINC) MCV 98 80 - 99 fl LAB MCH(LOINC) MCH 35 High 27 - 33 pg LAB MCHC(LOINC) MCHC 36 32 - 36 X10 3 LAB RDW/CV(LOINC) RDW/CV 13.6 12.0 - 15.6 % LAB PLATELET(LOINC ) PLATELET 351 150 - 450 x10EE3/UL LAB MPV(LOINC) MPV 6.9 6.6 - 10.5 fl Result Comment: AUTOMATED DI FFERENTIAL LAB NEUT %(LOINC) NEUT % 85.5 High 46.0 - 76.0 % LAB LYMPH %(LOINC) LYMPH % 7.6 Low 20.0 - 45.0 % LAB MONOS %(LOINC) MONOS % 6.1 0.0 - 10.0 % LAB EO %(LOINC) EO % 0.6 0.0 - 7.0 % LAB BASO %(LOINC) BASO % 0.3 0.0 - 2.0 % LAB Lymph #(LOINC) Lymph # 1.11 0.80 - 2.80 x10EE 3/UL LAB Neut #(LOINC) Neut # 12.48 High 1.50 - 7.10 x10EE3 /UL LAB Green #(LOINC) Green # 0.89 0.20 - 1.00 x10EE3 /UL LAB EO #(LOINC) EO # 0.09 0.00 - 0.50 x10EE3/U L LAB Baso #(INC) Baso # 0.04 0.00 - 0.10 x10EE3 /UL LAB MANUAL DIFF([facility]) MANUAL DIFF N/A LAB MORPHOLOGY([facility]) MORPHOLOGY N/A Performed By: #### [id number] ## ## [place] [id number] C-REACTIVE PROTEIN Collected: 5 11:50 AM Status: F Source: [facility] TYPE CODE TESTS RESULT OUT OF RANGE REFERENCE UNITS LAB CRP([facility]) CRP 0.20 0.00 - 0.90 mg/dl Performed By: #### [id number] ## ## [place] [id number] CMP WITH EGFR Collected: 11:50 AM Status: F Source: [facility] TYPE CODE TESTS RESULT OUT OF RANGE REFERENCE UNITS LAB CMP with eGFR([facility]) CMP with eGFR Result Comment: COMPREHENSIV E METABOLIC PANEL LAB SODIUM(INC) SODIUM 138 136 - 145 mmol/l LAB POTASSIUM(IN C) POTASSIUM 4.7 3.5 - 5.1 mmol/L LAB CHLORIDE([facility] ) CHLORIDE 106 98 - 107 mmol/L LAB CO2(INC) CO2 21.0 21.0 - 32.0 mmol/L LAB GLUCOSE([facility]) GLUCOSE 116 High 74 - 106 mg/dl LAB BUN([facility]) BUN 9 7 - 18 mg/dl LAB CREATININE([facility]) CREATININE 0.77 0.55 - 1.02 mg/dl LAB AST/SGOT(LOINC ) AST/SGOT 27 13 - 39 U/L LAB ALK PHOS([facility]) ALK PHOS 78 46 - 116 U/L LAB CALCIUM(INC) CALCIUM 9.7 8.5 - 10.1 mg/dl LAB TOTAL PROTEIN(LOINC) TOTAL PROTEIN 7.7 6.4 - 8.2 g/dl LAB ALBUMIN(INC) ALBUMIN 4.2 3.4 - 5.0 g/dL LAB GLOBULIN(INC ) GLOBULIN 3.5 1.5 - 3.8 G/DL LAB A/G RATIO(LOINC) A/G RATIO 1.2 0.9 - 1.6 LAB TOTAL BILI(LOINC) TOTAL BILI 0.6 0.2 - 1.0 mg/dl LAB B/C RATIO(LOINC) B/C RATIO 12 0 - 30 ratio LAB ALT/SGPT(LOINC ) ALT/SGPT 16 16 - 63 U/L LAB ANION GAP(LOINC) ANION GAP 16 10 - 20 mmol/L LAB AGE(LOINC) AGE 34 years LAB eGFR(LOINC) eGFR >60 60 - 999 ML/MINUT E LAB eGFR(AA)(LOINC ) eGFR(AA) >60 60 - 999 ML/MINUT E Result Comment: ACCORDING TO THE NATIONAL KIDNEY DISEASE EDUCATION PROGRAM(NKDE), A NORMAL eGFR IS A VALUE GREATER THAN OR EQUAL TO 60 ML/MIN/1.73 SQ METERS. CHRONIC KIDNEY DISEASE: <60mL/MIN/1.73 SQ METERS KIDNEY FAILURE: <15mL/MIN/1.73 SQ METERS THIS TEST SHOULD ONLY BE USED FOR PATIENTS 18 YEARS OF AGE AND OLDER. Performed By: #### [id number] ## ## [place] [id number] LIPASE Collected: 11:50 AM Status: F Source: [facility] TYPE CODE TESTS RESULT OUT OF RANGE REFERENCE UNITS LAB LIPASE([facility]) LIPASE 65.0 15.0 - 78.0 U/L Result Comment: *PLEASE NOTE THAT RANGES FOR LIPASE HAVE CHANGED OF 10/31/23 DUE TO AN ASSAY UPDATE BY THE ELECTRONICS ENGINEERING TECHNOLOGIST.THE NEW ASSAY RANGE IS 6-250 U/L, WITH A REFERENCE RANGE OF 16-77 U/L. Performed By: #### [id number] ## ## [place] [id number] ED NURSES CLINICAL NOTE Observed: 2024 11:15 AM Status: F Source: [facility] Nurse Narrative - LORI BERMAN, : 1990, , Nurse Clinical Narrative [place] [id number] 06/19/2025 11:15:00 Patient: TOR BERMAN Sex: Female : 1990 Age: 34y Disposition: Discharge to Home Disposition Decision Time: 16:15 06/19/2025 Departure Time: 16:26 06/19/2025 TRIAGE Arrived by private vehicle. Historian: (patient). Primary physician (Sanjeev). Triage time: 11:17 06/19/2025. Acuity: LEVEL 3. Chief Complaint: VOMITING. 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 The patient has had abdominal pain. SEPSIS SCREEN: NEGATIVE. SIRS criteria negative. No possible sources of infection. -- 11:23 06/19/25 EDT Hilary Bailon R.N. 11:19 06/19/25. HR: 85. RR: 16. O2 saturation: 100% Temperature: 96.5 F. Pain level now 8/10. -- 11:21 06/19/25 LILIANAT Hilary Bailon R.N. 11:25 06/19/25. BP: 180/107 MAP: 131. -- 11:30 06/19/25 GINNY Bailon R.N. Measurements: 11:06/19/25 Wt: 52.6 kg, Ht/Aden: 65.0 in, BMI: 19.30 -- 11:22 06/19/25 EDT Hilary Bailon R.N. Medications: zofran m mg every 6 hours. Stopped 06/19/2025. -- 11:28 06/19/25 LILIANAT Hilary Bailon R.N. oxycodone 5 mg tablet: 2 tablet every six hours. -- 11:28 06/19/25 EDT Hilary Bailon R.N. zofran m mg every 6 hours. Stopped 06/19/2025. -- 11:28 06/19/25 EDT Hilary Bailon R.N. 1 of 5 Nurse Narrative - TOR BERMAN, : 1990, , zofran m mg every 6 hours. Stopped 06/19/2025. -- 11:28 06/19/25 EDT Hilary Bailon R.N. oxycodone 10 mg tablet: every 6 hours. Stopped 06/19/2025. -- 11:28 06/19/25 GINNY Bailon R.N. oxycodone 10 mg tablet: every 6 hours. Stopped 06/19/2025. -- 11:28 06/19/25 GINNY Bailon R.N. oxycodone 10 mg tablet: 10 mg every 6 hours. Stopped 06/19/2025. -- 11:28 06/19/25 GINNY Bailon R.N. Lorazepam Intensol 2 mg/mL oral concentrate: 1 mg three times a day. Stopped 06/19/2025. -- 11:28 06/19/25 GINNY Bailon R.N. Lorazepam Intensol 2 mg/mL oral concentrate: 1 mg three times a day. Stopped 06/19/2025. -- 11:28 06/19/25 GINNY Bailon R.N. Lorazepam Intensol 2 mg/mL oral concentrate: 1 mg three times a day. Stopped 06/19/2025. -- 11:28 06/19/25 GINNY Bailon R.N. lorazepam 1 mg tablet: 1 tablet three times a day. -- 11:28 06/19/25 GINNY Bailon R.N. lexapro m mg once a day. Stopped 06/19/2025. -- 11:28 06/19/25 GINNY Bailon R.N. lexapro m mg once a day. Stopped 06/19/2025. -- 11:28 06/19/25 GINNY Bailon R.N. lexapro m mg once a day. -- 11:28 06/19/25 GINNY Bailon R.N. escitalopram 20 mg tablet: 1 tablet once a day. Stopped 06/19/2025. -- 11:28 06/19/25 GINNY Bailon R.N. Bactrim DS 800 mg-160 mg tablet: Stopped 06/19/2025. -- 11:28 06/19/25 GINNY Bailon R.N. 11:17 06/19/25. Preferred Pharmacy: ([facility]). -- 11:23 06/19/25 GINNY Bailon R.N. Allergies: Penicillins -- 11:06/19/25 GINNY Bailon R.N. Haldol -- 11:06/19/25 GINNY Bailon R.N. Home Medications/Allergy Information Source: patient -- 11:06/19/25 IGNNY Bailon R.N. Problems: Cancer. (stage 3 cervicle. Currently in remission) -- 11:06/19/25 GINNY Bailon R.N. Renal Failure. (Left kidney only) -- 11:06/19/25 GINNY Bailon R.N. Depression -- 11:06/19/25 GINNY Bailon R.N. Anxiety disorder -- 11:06/19/25 GINNY Bailon R.N. Surgeries: nephrostomy tube -- 11:06/19/25 GINNY Bailon R.N. 2 of 5 Nurse Narrative - TOR BERMAN, : 1990, , cervicle biopsy -- 11:06/19/25 GINNY Bailon R.N. History 11:06/19/25. PAST MEDICAL HX: Immunizations: up-to-date. LNMP: No menstrual periods. Denies current . SOCIAL HX: Smoker- current status unknown. Heavy vaping. Drug use: marijuana. No alcohol use. The patient has not traveled outside the [place] Infectious disease exposure: No infectious disease exposure. ABUSE ASSESSMENT: The patient answered "yes" to the question(s) "Do you feel safe in your home?" and "no" to the question(s) "Are you afraid to go home?". Abuse denied. SELF HARM ASSESSMENT: Self harm assessment was performed. The patient answered no to the question(s) "Have you recently felt down, depressed, or hopeless?" and "Do you have thoughts of harming or killing yourself?". FALL RISK ASSESSMENT: Fall risk assessment completed. No risk factors identified. -- 11:06/19/25 GINNY Bailon R.N. Interventions 11:06/19/25. Advanced care plan discussed with patient (Full code). -- 11:23 06/19/25 EDT Hilary Bailon R.N. PHYSICAL ASSESSMENT 12:28 06/19/25. Ambulatory to room. GENERAL / NEURO / PSYCH: Alert. Oriented X 4. RESPIRATORY: Respirations not labored. Breath sounds within normal limits. CVS: Capillary refill less than 2 seconds. GI / : The patient has had nausea. Emesis noted. Abdomen soft and nontender. Bowel sounds within normal limits. SKIN: Skin is warm and dry. -- 12:06/19/25 EDT Cholo Dempsey R.N. 3 of 5 Nurse Narrative - TOR BERMAN, : 1990, , NURSING PROGRESS NOTES 11:46 06/19/25. One (1) unsuccessful IV access attempt in the left antecubital space. Applied manual pressure. -- 12:06/19/25 EDT Anselmo Barreto-P. 11:50 06/19/25. Site #1 started in the left hand with a 22g needle with aseptic technique; 1 attempt. Blood drawn: red, green and blue tube(s). Saline lock flushed with 10 mL saline. -- 12:06/19/25 EDT Anselmo Barreto-P. 12:14 06/19/25. IV NS 0.9 % 1000 mL started in bag#1 1000 mL at 999 mL/hr via Site# 1. Allergies verified and confirmed 5 rights. IV patency established. IV site checked: no pain, redness, or swelling. IV flushed thoroughly pre-medication administration. Information reviewed with patient. Verbalizes understanding. -- 12:14 06/19/25 EDT Cholo Dempsey R.N. 12:14 06/19/25. Zofran IVP 4 mg given via Site# 1. Allergies verified and confirmed 5 rights. IV patency established. IV site checked: no pain, redness, or swelling. IV flushed thoroughly pre-medication administration. IVP given by nurse. Information reviewed with patient. Verbalizes understanding. -- 12:14 06/19/25 EDT Cholo Dempsey R.N. 13:00 06/19/25. Zofran IVP 4 mg given via Site# 1. Allergies verified and confirmed 5 rights. IV patency established. IV site checked: no pain, redness, or swelling. IV flushed thoroughly pre-medication administration. IVP given by nurse. Information reviewed with patient. Verbalizes understanding. -- 13:00 06/19/25 EDT Cholo Dempsey R.N. 13:05 06/19/25. BP: 183/94 MAP: 126 mmHg. HR: 46 bpm. -- 13:49 06/19/25 EDT Cholo Dempsey R.N. 13:20 06/19/25. HR: 63 bpm. O2 saturation: 100%. -- 13:49 06/19/25 EDT Cholo Dempsey R.N. 14:11 06/19/25. IV NS 0.9 %: Medication Discontinued. bag #1 completed. Total amount infused: 1000 mL. IV patency established. IV site checked: no pain, redness, or swelling. IV flushed thoroughly post-medication administration. -- 14:11 06/19/25 EDT Cholo Dempsey R.N. 14:06/19/25. IV NS 0.9 % 1000 mL started in bag#2 1000 mL at 999 mL/hr via Site# 1. Allergies verified and confirmed 5 rights. IV patency established. IV site checked: no pain, redness, or swelling. IV flushed thoroughly pre-medication administration. Information reviewed with patient. Verbalizes understanding. Completed per protocol. -- 14:06/19/25 EDT Uriel BarretoPApril 14:06/19/25. DiphenhydrAMINE (Benadryl) IVP 25 mg given via Site# 1. Allergies verified and confirmed 5 rights. IV patency established. IV site checked: no pain, redness, or swelling. IV flushed thoroughly pre-medication administration. IVP given by EM-P. Information reviewed with patient including sedative warning. Medication Wastage: 25 mg wasted. -- 14:06/19/25 EDT Uriel BarretoPApril 14:06/19/25. Prochlorperazine (Compazine) IVP 10 mg given via Site# 1. Allergies verified and confirmed 5 rights. IV patency established. IV site checked: no pain, redness, or swelling. IV flushed thoroughly pre-medication administration. IVP given by EMT-P. Information reviewed with patient. Verbalizes understanding. -- 14:19 06/19/25 EDT Pranav Landin E.M.T.-P. 14:28 06/19/25. BP: 149/96 MAP: 127 mmHg. HR: 58 bpm. -- 15:40 06/19/25 LILIANAT Cholo Dempsey R.N. 14:30 06/19/25. HR: 51 bpm. O2 saturation: 100%. -- 15:40 06/19/25 EDT Cholo Dempsey R.N. 4 of 5 Nurse Narrative - TOR BERMAN, : 1990, , 14:43 06/19/25. BP: 166/98 MAP: 128 mmHg. HR: 48 bpm. -- 15:40 06/19/25 LILIANAT Cholo Dempsey R.N. 14:45 06/19/25. HR: 54 bpm. O2 saturation: 99%. -- 15:40 06/19/25 GINNY Dempsey R.N. 14:58 06/19/25. BP: 175/107 MAP: 137 mmHg. HR: 52 bpm. -- 15:40 06/19/25 GINNY Dempsey R.N. 15:00 06/19/25. HR: 58 bpm. O2 saturation: 100%. -- 15:40 06/19/25 LILIANAT Cholo Dempsey R.N. 15:13 06/19/25. BP: 173/100 MAP: 145 mmHg. HR: 65 bpm. -- 15:40 06/19/25 GINNY Dempsey R.N. 15:15 06/19/25. HR: 56 bpm. O2 saturation: 100%. -- 15:40 06/19/25 GINNY Dempsey R.N. 15:28 06/19/25. BP: 173/107 MAP: 143 mmHg. HR: 54 bpm. -- 15:40 06/19/25 EDT Cholo Dempsey R.N. 15:30 06/19/25. HR: 66 bpm. O2 saturation: 100%. -- 15:40 06/19/25 EDT Cholo Dempsey R.N. 15:40 06/19/25. HR: 51 bpm. O2 saturation: 100%. -- 15:40 06/19/25 EDT Cholo Dempsey R.N. DISPOSITION / DISCHARGE 16:13 06/19/25. BP: 155/95 MAP: 115 mmHg. HR: 53 bpm. -- 16:24 06/19/25 EDT Cholo Dempsey R.N. 16:24 06/19/25. IV NS 0.9 %: Medication Discontinued. IV completed. Total amount infused: 1000 mL. IV patency established. IV site checked: no pain, redness, or swelling. IV flushed thoroughly post-medication administration. -- 16:24 06/19/25 EDT Cholo Dempsey R.N. 16:25 06/19/25. Site #1 removed upon discharge. Catheter intact. Bandage applied. -- 16:25 06/19/25 EDT Cholo Dempsey R.N. Departure time: 16:06/19/2025. Condition at departure: improved. No learning barriers present. Patient verbalized understanding. Written instructions provided in Palestinian. The patient was discharged by the physician. The patient was discharged home. The patient left ambulatory and via private vehicle. -- 16:26 06/19/25 EDT Cholo Dempsey R.N. (Electronically signed by Cholo Dempsey R.N. 06/19/25 17:35:43 EDT) Generated by [facility] 5 of 5 ED ORDER SHEET (CPOE ONLY) Observed: 11:15 AM Status: F Source: [facility] Order Sheet - TOR BERMAN : 1990, , Order Sheet [address] [address] [id number] 06/19/2025 Patient: TOR BERMAN Sex: Female : 1990 Age: 34y MEASUREMENTS: Wt: 52.6 kg, Ht/Aden: 65.0 in, BMI: 19.30 ALLERGIES: Haldol, Penicillins MEDICATION/IV/DRIP/FLUID ORDERS Order Description Priority Entered Acknowledged Completed IV NS 0.9 %1000 mL at 999 11:31 06/19/2025 11:44 12:14 mL/hr (NOW x1) Andrew Winter M.D. 06/19/2025 06/19/2025 Cholo Stanton, R.N. R.N. Zofran IVP4 mg (NOW x1) 11:31 06/19/2025 11:44 12:14 Andrew Winter M.D. 06/19/2025 06/19/2025 Cholo Stanton, Tino.N. R.N. Reason for ordering with alerts: Clinical consideration given --11:31 06/19/2025 Andrew Winter M.D. Zofran IVP4 mg (NOW x1) 12:57 06/19/2025 12:58 13:00 Andrew Winter M.D. 06/19/2025 06/19/2025 Cholo Stanton, R.N. R.N. Reason for ordering with alerts: Clinical consideration given --12:57 06/19/2025 Andrew Winter M.D. IV NS 0.9 %1000 mL at 999 14:00 06/19/2025 14:11 14:17 mL/hr (NOW x1) Andrew Winter M.D. 06/19/2025 06/19/2025 Pranav Barreto, 1 of 3 Order Sheet - TOR BERMAN, : 1990, , E.M.T.-P. EEveT.-P. Reason for ordering with alerts: Clinical consideration given --14:00 06/19/2025 Andrew Winter M.D. Prochlorperazine (Compazine) 14:00 06/19/2025 14:11 14:19 IVP10 mg (NOW x1) Andrew Winter M.D. 06/19/2025 06/19/2025 Pranav Barreto E.M.T.-P. E.M.T.-PApril Reason for ordering with alerts: Clinical consideration given --14:00 06/19/2025 Andrew Winter M.D. DiphenhydrAMINE (Benadryl) 14:00 06/19/2025 14:11 14:19 IVP25 mg (NOW x1) Andrew Winter M.D. 06/19/2025 06/19/2025 Pranav Barreto E.M.T.-Hawa EstevesT.-PApril LAB ORDERS Order Description Priority Entered Acknowledged Collected Completed CBC w Diff Stat Stat 11:31 06/19/2025 11:44 06/19/2025 12:10 06/19/2025 Natali Sandhu Jamie Burgett, Tino.N. R.N. CMP Stat Stat 11:31 06/19/2025 11:44 06/19/2025 12:10 06/19/2025 Natali Sandhu Jamie Burgett, R.N. R.N. Lipase Stat Stat 11:31 06/19/2025 11:44 06/19/2025 12:10 06/19/2025 Natali Sandhu Jamie Burgett, R.N. R.N. Lactate, Serum Stat Stat 11:31 06/19/2025 11:44 06/19/2025 12:10 06/19/2025 Natali Sandhu Jamie Burgett, R.N. R.N. Urinalysis Stat Stat 11:31 06/19/2025 11:44 06/19/2025 14:22 06/19/2025 Natali Sandhu Jamie Burgett, R.N. R.N. CRP Stat Stat 11:31 06/19/2025 11:44 06/19/2025 12:10 06/19/2025 Natali Sandhuie Roselyn, Cholo Dempsey, 2 of 3 Order Sheet - TOR BERMAN, : 1990, , R.N. R.N. DIAGNOSTIC STUDY ORDERS Order Description Priority Entered Acknowledged Completed STAFF ORDERS Order Description Priority Entered Acknowledged Collected Completed [Electronically signed by Andrew Winter M.D. (06/19/2025 18:55 EDT)] 3 of 3 ED VITALS FLOW SHEET Observed: 11:15 AM Status: F Source: [facility] Vitals - TOR BERMAN, : 1990, , Vital Sign Flow Sheet [address] [address] [id number] 06/19/2025 Patient: TOR BERMAN Sex: Female : 1990 Age: 34y Measurements Wt: 52.6 kg, Ht/Aden: 65.0 in, BMI: 19.30 Measured Time BP MAP HR RR O2Sat ETCO2 Temp Pain GCS RTS 16:13 06/19/2025 155/95 115 53 16:10 06/19/2025 54 99% 16:05 06/19/2025 54 100% 16:00 06/19/2025 65 99% 15:58 06/19/2025 159/95 116 56 15:55 06/19/2025 54 99% 15:50 06/19/2025 57 100% 15:45 06/19/2025 62 100% 15:43 06/19/2025 149/97 120 51 15:40 06/19/2025 51 100% 15:35 06/19/2025 65 100% 15:30 06/19/2025 66 100% 15:28 06/19/2025 173/107 143 54 15:25 06/19/2025 59 100% 15:20 06/19/2025 65 100% 1 of 3 Vitals - ILEANA BERMANL, : 1990, , Measured Time BP MAP HR RR O2Sat ETCO2 Temp Pain GCS RTS 15:15 06/19/2025 56 100% 15:13 06/19/2025 173/100 145 65 15:10 06/19/2025 67 99% 15:05 06/19/2025 59 100% 15:00 06/19/2025 58 100% 14:58 06/19/2025 175/107 137 52 14:55 06/19/2025 54 100% 14:50 06/19/2025 56 99% 14:45 06/19/2025 54 99% 14:43 06/19/2025 166/98 128 48 14:40 06/19/2025 56 100% 14:35 06/19/2025 51 99% 14:30 06/19/2025 51 100% 14:28 06/19/2025 149/96 127 58 14:05 06/19/2025 54 100% 14:00 06/19/2025 48 100% 13:55 06/19/2025 49 100% 13:50 06/19/2025 49 100% 13:45 06/19/2025 45 100% 13:40 06/19/2025 44 100% 13:35 06/19/2025 74 100% 13:30 06/19/2025 53 100% 13:25 06/19/2025 50 100% 13:20 06/19/2025 63 100% 13:15 06/19/2025 59 100% 2 of 3 Vitals - TOR BERMAN, : 1990, , Measured Time BP MAP HR RR O2Sat ETCO2 Temp Pain GCS RTS 13:10 06/19/2025 45 100% 13:05 06/19/2025 48 100% 13:05 06/19/2025 183/94 126 46 11:25 06/19/2025 180/107 131 11:19 06/19/2025 85 16 100% 96.5 F 8 3 of 3 ED MED ADMINISTRATION DETAIL Observed: 0 06/19/2025 11:15 AM Status: F Source: [facility] Counter Top Maker - TOR BERMAN, : 1990, , Medication Administration Record [place] [id number] 06/19/2025 Patient: TOR BERMAN Sex: Female : 1990 Age: 34y MEASUREMENTS: Wt: 52.6 kg, Ht/Aden: 65.0 in, BMI: 19.30 ALLERGIES: Haldol, Penicillins Medication Ordered Medication Administration Date/Time IV NS 0.9 % 1000 12:06/19 IV NS 0.9 % 1000 mL started in bag#1 1000 mL at Started mL at 999 mL/hr 999 mL/hr via Site# 1. Allergies verified and confirmed 5 rights. IV 12:14 06/19/2025 (NOW x1) patency established. IV site checked: no pain, redness, or swelling. Cholo Dempsey R.N. IV flushed thoroughly pre-medication administration. Information Stopped reviewed with patient. Verbalizes understanding. - 12:14 Cholo 14:11 06/19/2025 Yohana Dempsey R.N. Scanned 14:11 06/19 Medication Discontinued: bag #1 completed. Total amount infused: 1000 mL. IV patency established. IV site checked: no pain, redness, or swelling. IV flushed thoroughly post-medication administration. - 14:11 Cholo Dempsey R.N. Zofran IVP 4 mg 12:14 06/19 Zofran IVP 4 mg given via Site# 1. Allergies verified Given (NOW x1) and confirmed 5 rights. IV patency established. IV site checked: no 12:14 06/19/2025 pain, redness, or swelling. IV flushed thoroughly pre-medication Cholo Dempsey R.N. administration. IVP given by nurse. Information reviewed with Scanned patient. Verbalizes understanding. - 12:14 Cholo Dempsey R.N. Zofran IVP 4 mg 13:00 06/19 Zofran IVP 4 mg given via Site# 1. Allergies verified Given (NOW x1) and confirmed 5 rights. IV patency established. IV site checked: no 13:00 06/19/2025 pain, redness, or swelling. IV flushed thoroughly pre-medication Cholo Dempsey R.N. administration. IVP given by nurse. Information reviewed with Scanned patient. Verbalizes understanding. - 13:00 Cholo Dempsey R.N. 1 of 2 Counter Top Maker - TOR BERMAN, : 1990, , Medication Ordered Medication Administration Date/Time IV NS 0.9 % 1000 14:06/19 IV NS 0.9 % 1000 mL started in bag#2 1000 mL at Started mL at 999 mL/hr 999 mL/hr via Site# 1. Allergies verified and confirmed 5 rights. IV 14:06/19/2025 (NOW x1) patency established. IV site checked: no pain, redness, or swelling. Pranav Landin IV flushed thoroughly pre-medication administration. Information E.M.T.-P. reviewed with patient. Verbalizes understanding. Completed per Stopped protocol. - 14:17 Uriel BarretoPApril 16:24 06/19/2025 Cholo Dempsey R.N. 16:24 06/19 Medication Discontinued: IV completed. Total amount Scanned infused: 1000 mL. IV patency established. IV site checked: no pain, redness, or swelling. IV flushed thoroughly post-medication administration. - 16:24 Cholo Dempsey R.N. Prochlorperazine 14:19 06/19 Prochlorperazine (Compazine) IVP 10 mg given via Given (Compazine) IVP 10 Site# 1. Allergies verified and confirmed 5 rights. IV patency 14:06/19/2025 mg (NOW x1) established. IV site checked: no pain, redness, or swelling. IV Pranav Landin flushliliana thoroughly pre-medication administration. IVP given by Alan.MRajani EMT-P. Information reviewed with patient. Verbalizes Scanned understanding. - 14:19 Uriel BarretoP. DiphenhydrAMINE 14:19 06/19 DiphenhydrAMINE (Benadryl) IVP 25 mg given via Given (Benadryl) IVP 25 Site# 1. Allergies verified and confirmed 5 rights. IV patency 14:19 06/19/2025 mg (NOW x1) established. IV site checked: no pain, redness, or swelling. IV Pranav Landin, flushed thoroughly pre-medication administration. IVP given by Zackary EM-P. Information reviewed with patient including sedative warning. Scanned Medication Wastage: 25 mg wasted. - 14:19 Pranav Landin E.M.T.-P. 2 of 2 ED PHYSICIAN CLINICAL REPORT Observed: 06/19/2025 11:15 AM Status: F Source: [facility] Narrative - TOR BERMAN, : 1990, , Physician Clinical [address] [address] [id number] 06/19/2025 11:15:00 Patient: TOR BERMAN Sex: Female : 1990 Age: 34y Disposition: Discharge to Home Disposition Decision Time: 16:15 06/19/2025 Departure Time: 16:26 06/19/2025 Measurements Wt: 52.6 kg, Ht/Aden: 65.0 in, BMI: 19.30 Initial Vital Sign Measured Time BP MAP HR RR O2Sat ETCO2 Temp Pain GCS RTS 11:19 06/19/2025 85 16 100% 96.5 F 8 Time Seen: 11:27 06/19/2025. Arrived- By private vehicle. Historian- patient. HISTORY OF PRESENT ILLNESS Chief Complaint: VOMITING and DIARRHEA. The patient has had nausea and vomiting. Is still present. The illness is described as moderate. Similar symptoms previously. Patient has had similar symptoms many times. Recent medical care: The patient was seen recently by a health care provider. ( Has been seen multiple times in the ED for this.). REVIEW OF SYSTEMS 1 of 11 Narrative - ILEANA BERMANL, : 1990, , NEUROLOGICAL: No headache or dizziness. CONSTITUTIONAL: No fever or muscle aches. THROAT: No sore throat. PAST HISTORY See nurses notes. Anxiety disorder Cancer: (stage 3 cervicle. Currently in remission) Depression Renal Failure: (Left kidney only) Surgeries: cervicle biopsy nephrostomy tube Medications: Bactrim DS 800 mg-160 mg tablet: Stopped 06/19/2025. escitalopram 20 mg tablet: 1 tablet once a day. Stopped 06/19/2025. lexapro m mg once a day. lexapro m mg once a day. Stopped 06/19/2025. lexapro m mg once a day. Stopped 06/19/2025. lorazepam 1 mg tablet: 1 tablet three times a day. Lorazepam Intensol 2 mg/mL oral concentrate: 1 mg three times a day. Stopped 06/19/2025. Lorazepam Intensol 2 mg/mL oral concentrate: 1 mg three times a day. Stopped 06/19/2025. Lorazepam Intensol 2 mg/mL oral concentrate: 1 mg three times a day. Stopped 06/19/2025. oxycodone 10 mg tablet: 10 mg every 6 hours. Stopped 06/19/2025. oxycodone 10 mg tablet: every 6 hours. Stopped 06/19/2025. oxycodone 10 mg tablet: every 6 hours. Stopped 06/19/2025. oxycodone 5 mg tablet: 2 tablet every six hours. zofran m mg every 6 hours. Stopped 06/19/2025. zofran m mg every 6 hours. Stopped 06/19/2025. zofran m mg every 6 hours. Stopped 06/19/2025. Allergies: Haldol Penicillins 2 of 11 Narrative - TOR BERMAN, : 1990, , Home Medications/Allergy Information Source: patient - Hilary BailonYohana, 06/19/2025 11:19 EDT SOCIAL HISTORY History of tobacco use. Drug use: marijuana. ADDITIONAL NOTES The nursing notes have been reviewed. PHYSICAL EXAM Vital Signs: Have been reviewed. Appearance: Alert. Patient in mild distress. Eyes: Pupils equal, round and reactive to light. Eyes normal inspection. ENT: Ears normal. Nose normal. Pharynx normal. Neck: Normal inspection. Neck supple. CVS: Normal heart rate and rhythm. Heart sounds normal. Pulses normal. Respiratory: No respiratory distress. Painless inspiration. Abdomen: Soft and nontender. Bowel sounds normal. No organomegaly. No mass. Femoral pulses equal. Skin: Skin dry. No rash. Slightly cool skin (To hands; lower extremities are warm). Extremities: Extremities exhibit normal ROM. No lower extremity edema. Neuro: Oriented X 3. No motor deficit. No sensory deficit. LABS, X-RAYS, AND EKG Laboratory Tests: C-REACTIVE PROTEIN Final BINA: 06/19/2025 11:50:00 EDT MsgRcvd: 06/19/2025 12:47 EDT Lab Test Result Reference Status Received 06/19/2025 12:47 CRP 0.20 mg/dl 0.00 - 0.90 Final EDT CMP with eGFR [address] [facility] - [facility], : 1990, , Final BINA: 06/19/2025 11:50:00 EDT MsgRcvd: 06/19/2025 12:46 EDT Lab Test Result Reference Status Received 06/19/2025 12:46 CMP with eGFR Final EDT COMPREHENSIVE METABOLIC PANEL 06/19/2025 12:46 SODIUM 138 mmol/l 136 - 145 Final EDT 06/19/2025 12:46 POTASSIUM 4.7 mmol/L 3.5 - 5.1 Final EDT 06/19/2025 12:46 CHLORIDE 106 mmol/L 98 - 107 Final EDT 06/19/2025 12:46 CO2 21.0 mmol/L 21.0 - 32.0 Final EDT 116 mg/dl 06/19/2025 12:46 GLUCOSE 74 - 106 Final Above high normal EDT 06/19/2025 12:46 BUN 9 mg/dl 7 - 18 Final EDT 06/19/2025 12:46 CREATININE 0.77 mg/dl 0.55 - 1.02 Final EDT 06/19/2025 12:46 AST/SGOT 27 U/L 13 - 39 Final EDT 06/19/2025 12:46 ALK PHOS 78 U/L 46 - 116 Final EDT 06/19/2025 12:46 CALCIUM 9.7 mg/dl 8.5 - 10.1 Final EDT 06/19/2025 12:46 TOTAL PROTEIN 7.7 g/dl 6.4 - 8.2 Final EDT 4 of [facility], : 1990, , 06/19/2025 12:46 ALBUMIN 4.2 g/dL 3.4 - 5.0 Final EDT 06/19/2025 12:46 GLOBULIN 3.5 G/DL 1.5 - 3.8 Final EDT 06/19/2025 12:46 A/G RATIO 1.2 0.9 - 1.6 Final EDT 06/19/2025 12:46 TOTAL BILI 0.6 mg/dl 0.2 - 1.0 Final EDT 06/19/2025 12:46 B/C RATIO 12 ratio 0 - 30 Final EDT 06/19/2025 12:46 ALT/SGPT 16 U/L 16 - 63 Final EDT 06/19/2025 12:46 ANION GAP 16 mmol/L 10 - 20 Final EDT 06/19/2025 12:46 AGE 34 years Final EDT 06/19/2025 12:46 eGFR >60 ML/MINUTE 60 - 999 Final EDT 06/19/2025 12:46 eGFR(AA) >60 ML/MINUTE 60 - 999 Final EDT ACCORDING TO THE NATIONAL KIDNEY DISEASE EDUCATION PROGRAM(NKDE), A NORMAL eGFR IS A VALUE GREATER THAN OR EQUAL TO 60 ML/MIN/1.73 SQ METERS. CHRONIC KIDNEY DISEASE: <60mL/MIN/1.73 SQ METERS KIDNEY FAILURE: <15mL/MIN/1.73 SQ METERS THIS TEST SHOULD ONLY BE USED FOR PATIENTS 18 YEARS OF AGE AND OLDER. LIPASE Final BINA: 06/19/2025 11:50:00 EDT MsgRcvd: 06/19/2025 12:46 EDT Lab Test Result Reference Status Received 5 of ILEANA DailyL, : 1990, , Lab Test Result Reference Status Received 06/19/2025 12:46 LIPASE 65.0 U/L 15.0 - 78.0 Final EDT *PLEASE NOTE THAT RANGES FOR LIPASE HAVE CHANGED OF 10/31/23 DUE TO AN ASSAY UPDATE BY THE ELECTRONICS ENGINEERING TECHNOLOGIST.THE NEW ASSAY RANGE IS 6-250 U/L, WITH A REFERENCE RANGE OF 16-77 U/L. CBC + DIFF Final BINA: 06/19/2025 13:16:00 EDT MsgRcvd: 06/19/2025 13:46 EDT Lab Test Result Reference Status Received 06/19/2025 13:46 CBC + DIFF Final EDT CBC-COMPLETE BLOOD COUNT 14.6 x 10/UL 06/19/2025 13:46 WBC 4.5 - 10.8 Final Above high normal EDT 3.86 x 10/UL 06/19/2025 13:46 RBC 4.10 - 5.30 Final Below low normal EDT 06/19/2025 13:46 HEMOGLOBIN 13.5 g/dl 12.0 - 16.0 Final EDT 06/19/2025 13:46 HEMATOCRIT 37.9 % 34.0 - 46.0 Final EDT 06/19/2025 13:46 MCV 98 fl 80 - 99 Final EDT 35 pg 06/19/2025 13:46 MCH 27 - 33 Final Above high normal EDT 06/19/2025 13:46 MCHC 36 X10 3 32 - 36 Final EDT [address] [facility] - TOR BERMAN, : 1990, , 06/19/2025 13:46 RDW/CV 13.6 % 12.0 - 15.6 Final EDT 06/19/2025 13:46 PLATELET 351 x10/UL 150 - 450 Final EDT 06/19/2025 13:46 MPV 6.9 fl 6.6 - 10.5 Final EDT AUTOMATED DIFFERENTIAL 85.5 % 06/19/2025 13:46 NEUT % 46.0 - 76.0 Final Above high normal EDT 7.6 % 06/19/2025 13:46 LYMPH % 20.0 - 45.0 Final Below low normal EDT 06/19/2025 13:46 MONOS % 6.1 % 0.0 - 10.0 Final EDT 06/19/2025 13:46 EO % 0.6 % 0.0 - 7.0 Final EDT 06/19/2025 13:46 BASO % 0.3 % 0.0 - 2.0 Final EDT 06/19/2025 13:46 Lymph # 1.11 x10/UL 0.80 - 2.80 Final EDT 12.48 x10/UL 06/19/2025 13:46 Neut # 1.50 - 7.10 Final Above high normal EDT 06/19/2025 13:46 Green # 0.89 x10/UL 0.20 - 1.00 Final EDT 06/19/2025 13:46 EO # 0.09 x10/UL 0.00 - 0.50 Final EDT 06/19/2025 13:46 Baso # 0.04 x10/UL 0.00 - 0.10 Final EDT 7 of 11 TOR Daily, : 1990, , 06/19/2025 13:46 MANUAL DIFF N/A New Order EDT 06/19/2025 13:46 MORPHOLOGY N/A New Order EDT LACTATE Final BINA: 06/19/2025 13:16:00 EDT MsgRcvd: 06/19/2025 14:05 EDT Lab Test Result Reference Status Received 06/19/2025 14:05 LACTATE 0.7 mmol/L 0.4 - 2.0 Final EDT URINALYSIS Final BINA: 06/19/2025 14:15:00 EDT MsgRcvd: 06/19/2025 15:23 EDT Lab Test Result Reference Status Received 06/19/2025 15:23 URINALYSIS Final EDT URINALYSIS 06/19/2025 15:23 Specimen Type R New Order EDT 06/19/2025 15:23 Color p.yel NORMAL: YELLOW Final EDT 06/19/2025 15:23 Clarity clear NORMAL: CLEAR Final EDT 06/19/2025 15:23 ph 8 NORMAL: 5.0-8.0 Final EDT NORMAL: 06/19/2025 15:23 Protein NEG Final NEGATIVE EDT 8 of 11 TOR Daily, : 1990, , 06/19/2025 15:23 Glucose NORM NORMAL: NORMAL Final EDT 5 NORMAL: 06/19/2025 15:23 Ketone Final Abnormal NEGATIVE EDT NORMAL: 06/19/2025 15:23 Bilirubin NEG Final NEGATIVE EDT 10 NORMAL: 06/19/2025 15:23 Blood Final Abnormal NEGATIVE EDT 06/19/2025 15:23 Urobilinog NORM NORMAL: NORMAL Final EDT NORMAL: 06/19/2025 15:23 Sp Stem 1.015 Final 1.010-1.030 EDT NORMAL: 06/19/2025 15:23 Nitrite NEG Final NEGATIVE EDT NORMAL: 06/19/2025 15:23 Leukocytes NEG Final NEGATIVE EDT 06/19/2025 15:23 Microscopic SEE BELOW Final EDT MICROSCOPIC 06/19/2025 15:23 Wbc 1-5 0-5/hpf Final EDT 06/19/2025 15:23 Rbc 0-5 0-3/hpf Final EDT 06/19/2025 15:23 Casts NONE Final EDT 06/19/2025 15:23 Crystals NONE Final EDT Narrative - TOR BERMAN, : 1990, , 06/19/2025 15:23 Amorphous NONE Final EDT 06/19/2025 15:23 Bacteria NONE Final EDT 06/19/2025 15:23 Epi Cells NONE Final EDT 06/19/2025 15:23 Mucous NONE Final EDT 06/19/2025 15:23 Yeast NONE Final EDT PROGRESS AND PROCEDURES MEDICAL DECISION MAKING: MEDICAL COMPLEXITY MODERATE. Pertinent clinical findings include the acute presentation. The exam revealed abnormal vital signs. ( elevated blood pressure). Serious conditions are unlikely to be a cause for the patient's findings. The diagnosis appears to be less serious in nature. (patient has been seen multiple times in the ED for these symptoms. She has a Uro urologist in [place] that she is to be seeing and following up with. Of note when she was seen here about 2 weeks ago she said that she had an appointment in 5 days with them. When she was seen about 3 weeks ago she said that she had an appointment with them the next week. Today she tells me that she has an appointment tomorrow with them. This apparently is supposed to be for evaluation of nephrectomy. Also has been seen in the ED [place] told that she had a kidney stone but any imaging reports have mentioned a stone in the kidney but not in any the collecting systems. She does have a chronic marijuana use and perhaps that as a contributing factor to her vomiting.). Disposition: Condition: stable. Discharged in stable condition. Discharge decision based on the following: patient's condition is stable; patient's condition is improved; patient's exam is stable; patient's exam is improved; stable condition on repeat evaluation; clinical impression is consistent with outpatient treatment. CLINICAL IMPRESSION Vomiting with nausea and volume depletion. DISCHARGE INSTRUCTIONS Narrative - TOR BERMAN, : 1990, , Warnings: GENERAL WARNINGS: Return or contact your physician immediately if your condition worsens or changes unexpectedly, if not improving as expected, or if other problems arise. Follow-up: Follow up with a urologist tomorrow as scheduled. (Electronically signed by Andrew Winter M.D. 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 escitalopram 20 mg tablet: 1 tablet once a day. Stopped 06/19/2025. lexapro m mg once a day. Stopped 06/19/2025. lexapro m mg once a day. Stopped 06/19/2025. lexapro m mg once a day. lorazepam 1 mg tablet: 1 tablet three times a day. 1 of 4 Visit Overview - TOR BERMAN, : 1990, , Lorazepam Intensol 2 mg/mL oral concentrate: 1 mg three times a day. Stopped 06/19/2025. Lorazepam Intensol 2 mg/mL oral concentrate: 1 mg three times a day. Stopped 06/19/2025. Lorazepam Intensol 2 mg/mL oral concentrate: 1 mg three times a day. Stopped 06/19/2025. oxycodone 10 mg tablet: every 6 hours. Stopped 06/19/2025. oxycodone 10 mg tablet: every 6 hours. Stopped 06/19/2025. oxycodone 10 mg tablet: 10 mg every 6 hours. Stopped 06/19/2025. oxycodone 5 mg tablet: 2 tablet every six hours. zofran m mg every 6 hours. Stopped 06/19/2025. zofran m mg every 6 hours. Stopped 06/19/2025. zofran m mg every 6 hours. Stopped 06/19/2025. PAST MEDICAL HISTORY / PROBLEMS Anxiety disorder Cancer. (stage 3 cervicle. Currently in remission) Depression Immunizations: up-to-date LNMP: No menstrual periods Renal Failure. (Left kidney only) See nurses notes PAST SURGICAL HISTORY nephrostomy tube SOCIAL HISTORY Smoking status: Yes Alcohol use: No Drug use: Yes ED COURSE MEDICATIONS GIVEN IN EMERGENCY DEPARTMENT 12:14 06/19/25 IV NS 0.9 % 1000 mL 999 mL/hr 12:14 06/19/25 Zofran IVP 4 mg 13:00 06/19/25 Zofran IVP 4 mg 14:17 06/19/25 IV NS 0.9 % 1000 mL 999 mL/hr 2 of 4 Visit Overview - TOR BERMAN, : 1990, , 14:19 06/19/25 DiphenhydrAMINE (Benadryl) IVP 25 mg 14:19 06/19/25 Prochlorperazine (Compazine) IVP 10 mg IV SITE INFORMATION INTAKE OUTPUT REASSESMENT (most recent) 12:28 06/19/25. Ambulatory to room. GENERAL / NEURO / PSYCH: Alert. Oriented X 4. RESPIRATORY: Respirations not labored. Breath sounds within normal limits. CVS: Capillary refill less than 2 seconds. GI / : The patient has had nausea. Emesis noted. Abdomen soft and nontender. Bowel sounds within normal limits. SKIN: Skin is warm and dry. VITAL SIGNS First Vitals Last Vitals Temp 11:19 06/19/25 96.5 F Temp 16:13 06/19/25 BP 11:19 06/19/25 BP 16:13 06/19/25 155/95 HR 11:19 06/19/25 85 HR 16:13 06/19/25 53 RR 11:19 06/19/25 16 RR 16:13 06/19/25 O2 Sat 11:19 06/19/25 100% O2 Sat 16:13 06/19/25 Pain 11:19 06/19/25 8 Pain 16:13 06/19/25 ETCO2 11:19 06/19/25 ETCO2 16:13 06/19/25 GCS 11:19 06/19/25 GCS 16:13 06/19/25 RTS 11:19 06/19/25 RTS 16:13 06/19/25 PROCEDURES NURSING INTERVENTIONS LABS / STUDIES LABS / STUDIES ORDERED CBC w Diff CMP CRP Lactate, Serum Lipase 3 of 4 Visit Overview - TOR BERMAN, : 1990, , Urinalysis CLINICAL IMPRESSION VOMITING WITH NAUSEA AND VOLUME DEPLETION 4 of 4 ED SUPER BILL Observed: 06/19/2025 11:15 AM Status: F [facility], : 1990, , [address] [place] [address] [id number] 06/19/2025 Patient: TOR BERMAN Sex: Female : 1990 Age: 34y Item Facility Professional Category Description Code Code Quantity Fee Total Drugs Normal Saline 496140 1 $0.00 $0.00 1000cc (799475) Nurse/E/M EMERGENCY 498393 1 $0.00 $0.00 DEPARTMENT VISIT HIGH/URGENT SEVERITY (94776-00) Nurse/IV/IM/Infusions Hydration 128429 4 $0.00 $0.00 additional hour (72399) Nurse/IV/IM/Infusions IVP additional 149508 2 $0.00 $0.00 push (09499) Nurse/IV/IM/Infusions IVP initial 120367 1 $0.00 $0.00 (34061) Nurse/IV/IM/Infusions IVP same med 354743 1 $0.00 $0.00 (31 min apart) (77105) Grand Total $0.00 1 of 2 Superbill - TOR BERMAN, : 1990, , Providers Andrew Winter M.D. Chief Complaint VOMITING and DIARRHEA. Principal Diagnosis Vomiting with nausea and volume depletion. ICD-10 Codes R11.2: Nausea with vomiting, unspecified [address] ABDOMEN/PELVIS W Observed: 06/07/2025 2:50 PM Status: F Source: [place] [id number] Patient: TOR BERMAN Phone#: : 1990 Age: 34 Gender: F Pt. Type: ER Account: [id number] Location: [facility] Ordering: PEPE VICTORIA Exam Date: 06/07/2025/14:37 Family Phys: Charge Code: 089891 Physician: Ingham Order #: [id number] Dose#: 9.2 mGy PROCEDURE: CT ABDOMEN/PELVIS WITH CONTRAST COMPARISON: [facility], CT, KUB W/O CON, 05/26/2025, 20:31. [facility], CT, ABDOMEN/PELVIS W CON, 05/17/2024, 19:58. [facility], CT, ABDOMEN/PELVIS W CON, 10/30/2023, 13:49. [facility], CT, ABDOMEN/PELVIS W CON, 04/04/2020, 17:51. [facility], CT, ABDOMEN/PELVIS W CON, 05/03/2025, 1:13. INDICATIONS: Abdominal pain. TECHNIQUE: After obtaining the patient's consent, CT images were created with non-ionic intravenous contrast material. All CT scans at this facility use dose modulation, iterative reconstruction, and/or weight based dosing when appropriate to reduce radiation dose to as low as reasonably achievable. IV CONTRAST: Omnipaque 350,80ml TOTAL DOSE: 9.2 CTDIvol(mGy) FINDINGS: LIVER: Stable small low-attenuation lesions measuring 0.5 cm, series 2, image 8 and series 2, image 10 focal low-attenuation adjacent falciform ligament, nonspecific but most often due to focal fatty infiltration of the liver BILIARY: Gallbladder is present and contracted PANCREAS: Normal. No lesion, fluid collection, ductal dilatation, or atrophy. SPLEEN: Normal. No enlargement or focal lesion. KIDNEYS: Kidneys enhance symmetrically. Excreted contrast is seen in the right renal pelvis and ureter. Excreted contrast is present in the left renal pelvis. There is left renal scarring. There is a percutaneous left nephrostomy. Left renal parenchymal thinning. The pigtail is in the lower pole. ADRENALS: Normal. No mass or enlargement. AORTA/VASCULAR: No aortic aneurysm. There are are atherosclerotic calcifications of the right iliac artery.. RETROPERITONEUM: Normal. No mass or adenopathy. Continued Report - Page 2 of 2 Patient: TOR BERMAN Phone#: : 1990 Age: 34 Gender: F Pt. Type: ER Account: [id number] Location: 052 Ordering: PEPE VICTORIA Exam Date: 06/07/2025/14:37 Family Phys: Charge Code: 186208 Physician: Ingham Order #: [id number] Dose#: 9.2 mGy BOWEL/MESENTERY: Ingested materials present in the stomach. No bowel obstruction or dilatation. Moderate stool burden. The appendix is not visualized. ABDOMINAL WALL: Normal. No mass or hernia. URINARY BLADDER: Normal. No visible focal wall thickening, lesion, or calculus. PELVIC NODES: Normal. No adenopathy. PELVIC ORGANS: Normal. No visible mass. Pelvic organs appropriate for patient age. BONES: Normal. No bony lesion or fracture. LUNG BASES: There are dependent changes. OTHER: Negative. CONCLUSION: 1. No appreciable acute intra-abdominal or pelvic abnormality. Left percutaneous nephrostomy is in stable position. Dictated by: Stacey Watt MD on 06/07/2025 at 15:20 Approved by: Stacey Watt MD on 06/07/2025 at 15:35 URINALYSIS Collected: 2:03 PM Status: F Source: [facility] TYPE CODE TESTS RESULT OUT OF RANGE REFERENCE UNITS LAB URINALYSIS(ISAIAH NC) URINALYSIS Result Comment: URINALYSIS LAB Specimen Type(LOINC) Specimen Type R LAB Color(LOINC) Color yellow NORMAL: YELLOW LAB Clarity(LOINC) Clarity clear RAJIV L: CLEAR LAB ph(LOINC) ph 6 NORMAL: 5.0-8.0 LAB Protein(LOINC) Protein NEG RAJIV L: NEGATIVE LAB Glucose(LOINC) Glucose NORM RAJIV L: NORMAL LAB Ketone(LOINC) Ketone NEG NORMAL : NEGATIVE LAB Bilirubin(LOIN C) Bilirubin NEG NORMAL: NEGATIVE LAB Blood(LOINC) Blood 10 Abnormal NORMAL: NEGATIVE LAB Urobilinog(ISAIAH NC) Urobilinog NORM NORMAL: NORMAL LAB Sp Stem(LOINC) Sp Stem 1.015 NORMAL: 1.010-1.030 LAB Nitrite(LOINC) Nitrite NEG RAJIV L: NEGATIVE LAB Leukocytes(ISAIAH NC) Leukocytes NEG NORMAL: NEGATIVE LAB Microscopic(LO INC) Microscopic SEE BELOW Result Comment: MICROSCOPIC LAB Wbc(LOINC) Wbc 1-5 0-5/hpf LAB Rbc(LOINC) Rbc 0-5 0-3/hpf LAB Casts(LOINC) Casts NONE LAB Crystals(LOINC ) Crystals NONE LAB Amorphous(LOIN C) Amorphous NONE LAB Bacteria(LOINC ) Bacteria TRACE LAB Epi Cells(LOINC) Epi Cells OCC LAB Mucous(LOINC) Mucous NONE LAB Yeast(LOINC) Yeast NONE Performed By: #### [id number] ## ## [facility],[address] [place] [address] CMP WITH EGFR Collected: 1:23 PM Status: F Source: [facility] TYPE CODE TESTS RESULT OUT OF RANGE REFERENCE UNITS LAB CMP with eGFR(LOINC) CMP with eGFR Result Comment: COMPREHENSIV E METABOLIC PANEL LAB SODIUM(LOINC) SODIUM 135 Low 136 - 145 mmol/l LAB POTASSIUM(LOIN C) POTASSIUM 4.4 3.5 - 5.1 mmol/L LAB CHLORIDE(LOINC ) CHLORIDE 100 98 - 107 mmol/L LAB CO2(LOINC) CO2 26.5 21.0 - 32.0 mmol/L LAB GLUCOSE(LOINC) GLUCOSE 105 74 - 106 mg/dl LAB BUN(LOINC) BUN 13 7 - 18 mg/dl LAB CREATININE(ISAIAH NC) CREATININE 0.93 0.55 - 1.02 mg/dl LAB AST/SGOT(LOINC ) AST/SGOT 19 13 - 39 U/L LAB ALK PHOS(LOINC) ALK PHOS 52 46 - 116 U/L LAB CALCIUM(LOINC) CALCIUM 8.3 Low 8.5 - 10.1 mg/dl LAB TOTAL PROTEIN(INC) TOTAL PROTEIN 6.1 Low 6.4 - 8.2 g/dl LAB ALBUMIN(INC) ALBUMIN 3.2 Low 3.4 - 5.0 g/dL LAB GLOBULIN(INC ) GLOBULIN 2.9 1.5 - 3.8 G/DL LAB A/G RATIO(INC) A/G RATIO 1.1 0.9 - 1.6 LAB TOTAL BILI([facility]) TOTAL BILI 0.3 0.2 - 1.0 mg/dl LAB B/C RATIO(LOINC) B/C RATIO 14 0 - 30 ratio LAB ALT/SGPT(INC ) ALT/SGPT 20 16 - 63 U/L LAB ANION GAP(INC) ANION GAP 13 10 - 20 mmol/L LAB AGE(LOINC) AGE 34 years LAB eGFR(LOINC) eGFR >60 60 - 999 ML/MINUT E LAB eGFR(AA)(LOINC ) eGFR(AA) >60 60 - 999 ML/MINUT E Result Comment: ACCORDING TO THE NATIONAL KIDNEY DISEASE EDUCATION PROGRAM(NKDE), A NORMAL eGFR IS A VALUE GREATER THAN OR EQUAL TO 60 ML/MIN/1.73 SQ METERS. CHRONIC KIDNEY DISEASE: <60mL/MIN/1.73 SQ METERS KIDNEY FAILURE: <15mL/MIN/1.73 SQ METERS THIS TEST SHOULD ONLY BE USED FOR PATIENTS 18 YEARS OF AGE AND OLDER. Performed By: #### [id number] ## ## [facility],[address] [place] [id number] CBC + DIFF Collected: 5 1:23 PM Status: F Source: [facility] TYPE CODE TESTS RESULT OUT OF RANGE REFERENCE UNITS LAB CBC + DIFF(LOINC) CBC + DIFF Result Comment: CBC-COMPLETE BLOOD COUNT LAB WBC(LOINC) WBC 10.9 High 4.5 - 10.8 x 10EE3/UL LAB RBC(LOINC) RBC 3.36 Low 4.10 - 5.30 x 10EE6/UL LAB HEMOGLOBIN(ISAIAH NC) HEMOGLOBIN 11.5 Low 12.0 - 16.0 g/dl LAB HEMATOCRIT(ISAIAH NC) HEMATOCRIT 33.0 Low 34.0 - 46.0 % LAB MCV(LOINC) MCV 98 80 - 99 fl LAB MCH(LOINC) MCH 34 High 27 - 33 pg LAB MCHC(LOINC) MCHC 35 32 - 36 X10 3 LAB RDW/CV(LOINC) RDW/CV 14.4 12.0 - 15.6 % LAB PLATELET(LOINC ) PLATELET 375 150 - 450 x10EE3/UL LAB MPV(LOINC) MPV 7.0 6.6 - 10.5 fl Result Comment: AUTOMATED DI FFERENTIAL LAB NEUT %(LOINC) NEUT % 66.5 46.0 - 76.0 % LAB LYMPH %(LOINC) LYMPH % 22.8 20.0 - 45.0 % LAB MONOS %(LOINC) MONOS % 7.9 0.0 - 10.0 % LAB EO %(LOINC) EO % 2.6 0.0 - 7.0 % LAB BASO %(LOINC) BASO % 0.3 0.0 - 2.0 % LAB Lymph #(LOINC) Lymph # 2.48 0.80 - 2.80 x10EE 3/UL LAB Neut #(LOINC) Neut # 7.22 High 1.50 - 7.10 x10EE3 /UL LAB Green #(LOINC) Green # 0.86 0.20 - 1.00 x10EE3 /UL LAB EO #(LOINC) EO # 0.28 0.00 - 0.50 x10EE3/U L LAB Baso #(LOINC) Baso # 0.03 0.00 - 0.10 x10EE3 /UL LAB MANUAL DIFF(LOINC) MANUAL DIFF N/A LAB MORPHOLOGY(ISAIAH NC) MORPHOLOGY N/A Performed By: #### [id number] ## ## [facility],[address] [place] [id number] ED ORDER SHEET (CPOE ONLY) Observed: 03/2025 12:59 PM Status: F Source: [facility] Order Sheet Order Sheet [address] [address] [id number] 06/07/2025 Patient: TOR BERMAN Sex: Female : 1990 Age: 34y MEASUREMENTS: Wt: 52.2 kg, Ht/Aden: 60.0 in, BMI: 22.46 ALLERGIES: Haldol, Penicillins MEDICATION/IV/DRIP/FLUID ORDERS Order Description Priority Entered Acknowledged Completed Zofran IVP4 mg (NOW x1) 13:07 06/07/2025 13:46 13:52 Pepe [place], 06/07/2025 06/07/2025 Cholo Sarmiento, R.N. R.N. MORPHine IVP4 mg (NOW x1, 13:07 06/07/2025 13:46 13:53 HIGH ALERT MEDICATION) Pepe [place], 06/07/2025 06/07/2025 Cholo Sarmiento R.N. R.N. HYDROmorphone (Dilaudid) 15:09 06/07/2025 15:28 15:34 IVP0.5 mg (NOW x1, HIGH Pepe [place], 06/07/2025 06/07/2025 ALERT MEDICATION) Cholo Sarmiento, R.N. R.N. Reason for ordering with alerts: Benefits outweigh risks --15:09 06/07/2025 Pepe [place] D.O. LAB ORDERS Order Description Priority Entered Acknowledged Collected Completed 1 of 2 Order Sheet CBC w Diff Stat Stat 13:07 06/07/2025 13:15 06/07/2025 13:58 06/07/2025 Cholo Vidal Lemasters, D.O. R.N. RFara CMP Stat Stat 13:07 06/07/2025 13:15 06/07/2025 13:58 06/07/2025 Cholo Vidal Lemasters, D.O. R.NApril RFara Urinalysis Stat Stat 13:07 06/07/2025 13:15 06/07/2025 14:25 06/07/2025 Cholo Vidal Lemasters, D.O. R.NApril RFara DIAGNOSTIC STUDY ORDERS Order Description Priority Entered Acknowledged Completed CT ABD/PEL w Cont Stat Stat 14:20 06/07/2025 14:25 15:34 Pepe [place], 06/07/2025 06/07/2025 Cholo Sarmiento R.N. R.N. Order Comments: 14:20 06/07/2025: Status: Not . Pepe [place] D.O. Reason for Study: Abdominal Pain STAFF ORDERS Order Description Priority Entered Acknowledged Collected Completed IV Saline Lock 13:07 06/07/2025 13:15 06/07/2025 13:58 06/07/2025 Cholo Vidal Lemasters, D.O. R.NApril RAprilNApril [Electronically signed by Pepe [place] D.O. (06/07/2025 15:48 EDT)] 2 of 2 ED VITALS FLOW SHEET Observed: 12:59 PM Status: F Source: [facility] Vitals Vital Sign Flow Sheet [address] [address] [id number] 06/07/2025 Patient: TOR BERAMN Sex: Female : 1990 Age: 34y Measurements Wt: 52.2 kg, Ht/Aden: 60.0 in, BMI: 22.46 Measured Time BP MAP HR RR O2Sat ETCO2 Temp Pain GCS RTS 15:47 06/07/2025 67 98% 15:42 06/07/2025 67 97% 15:37 06/07/2025 66 97% 15:36 06/07/2025 124/92 97 62 15:32 06/07/2025 70 96% 15:27 06/07/2025 62 98% 15:22 06/07/2025 65 98% 15:17 06/07/2025 67 99% 15:12 06/07/2025 65 98% 15:07 06/07/2025 65 98% 14:22 06/07/2025 77 97% 14:17 06/07/2025 74 97% 14:07 06/07/2025 73 97% 13:37 06/07/2025 110/76 87 79 18 98% 97.8 F 8 1 of 1 ED VISIT SUMMARY Observed: 06/07/2025 12:59 PM Status: F Source: [facility] Visit Overview Visit Overview [address] [address] [id number] 06/07/2025 Patient: TOR BERMAN Sex: Female : 1990 Age: 34y 06/07/2025 06:14 PM EDT ED Arrival:12:59 06/07/2025 EDT Status:not Recent Travel:no Language:eng Adv Directive: Isolation Status: Ethnicity:N Fall Risk:no risk Infectious Disease Exposure:no Measurements:5' / 152.4 Self-Harm Status:risk Sepsis Screen:negative cm 115.0 lb / 52.2 kg Chief Complaint:VAGINAL PAIN and (Pace) ALLERGIES Haldol Penicillins HOME MEDICATIONS Bactrim DS 800 mg-160 mg tablet lexapro: 20 mg once a day . Lorazepam Intensol 2 mg/mL oral concentrate: 1 mg three times a day . oxycodone 10 mg tablet: 10 mg every 6 hours . zofran: 4 mg every 6 hours . 1 3 Visit Overview PAST MEDICAL HISTORY / PROBLEMS Anxiety disorder Cancer. (stage 3 cervicle. Currently in remission) Depression Renal Failure. (Left kidney only) PAST SURGICAL HISTORY nephrostomy tube SOCIAL HISTORY Smoking status: Unknown Alcohol use: No Drug use: Yes ED COURSE MEDICATIONS GIVEN IN EMERGENCY DEPARTMENT 13:52 06/07/25 Zofran IVP 4 mg 13:53 06/07/25 MORPHine IVP 4 mg 15:33 06/07/25 HYDROmorphone (Dilaudid) IVP 0.5 mg IV SITE INFORMATION INTAKE OUTPUT REASSESMENT (most recent) 14:10 06/07/25. Ambulatory to room. GENERAL / NEURO / PSYCH: Alert. Oriented X 4. Appears in no acute distress. RESPIRATORY: Respirations not labored. Breath sounds within normal limits. CVS: Normal heart rate and rhythm. Capillary refill less than 2 seconds. GI / : Abdomen soft and nontender. Bowel sounds within normal limits. ( flank pain that radiates to groin). SKIN: Skin is warm and dry. VITAL SIGNS First Vitals Last Vitals 2 of 3 Visit Overview First Vitals Last Vitals Temp 13:37 06/07/25 97.8 F Temp 15:47 06/07/25 BP 13:37 06/07/25 110/76 BP 15:47 06/07/25 HR 13:37 06/07/25 79 HR 15:47 06/07/25 67 RR 13:37 06/07/25 18 RR 15:47 06/07/25 O2 Sat 13:37 06/07/25 98% O2 Sat 15:47 06/07/25 98% Pain 13:37 06/07/25 8 Pain 15:47 06/07/25 ETCO2 13:37 06/07/25 ETCO2 15:47 06/07/25 GCS 13:37 06/07/25 GCS 15:47 06/07/25 RTS 13:37 06/07/25 RTS 15:47 06/07/25 PROCEDURES NURSING INTERVENTIONS LABS / STUDIES LABS / STUDIES ORDERED CBC w Diff CMP CT ABD/PEL w Cont Urinalysis CLINICAL IMPRESSION ABDOMINAL PAIN 3 of 3 ED NURSES CLINICAL NOTE Observed: 2024 12:59 PM Status: F Source: [facility] Nurse Narrative Nurse Clinical Narrative [address] [place] [address] [phone] 06/07/2025 12:59:00 Patient: TOR BERMAN Sex: Female : 1990 Age: 34y Disposition: Discharge Disposition Decision Time: 15:46 06/07/2025 Departure Time: 15:57 06/07/2025 TRIAGE Arrived by private vehicle. Historian: (patient). Accompanied by family. Patient has a primary care physician. Primary physician (Sanjeev). Triage time: 13:07 06/07/2025. Acuity: LEVEL 4. Chief Complaint: VAGINAL PAIN. This started today. No abnormal bleeding. SEPSIS SCREEN: NEGATIVE. SIRS criteria negative. No possible sources of infection. -- 13:06/07/25 GINNY Gramajo R.N. 13:37 06/07/25. BP: 110/76 MAP: 87. HR: 79. RR: 18. O2 saturation: 98% Temperature: 97.8 F. Pain level now 8/10. -- 13:37 06/07/25 GINNY Gramajo R.N. Acuity: LEVEL 3. 13:38 06/07/25. -- 13:38 06/07/25 GINNY Gramajo R.N. Measurements: 13:06/07/25 Wt: 52.2 kg, Ht/Aden: 60.0 in, BMI: 22.46 -- 13:06/07/25 GINNY Gramajo R.N. Medications: zofran: 4 mg every 6 hours . -- 13:06/07/25 GINNY Gramajo R.N. 1 of 4 Nurse Narrative lexapro: 20 mg once a day . -- 13:06/07/25 GINNY Gramajo R.N. Lorazepam Intensol 2 mg/mL oral concentrate: 1 mg three times a day . -- 13:06/07/25 GINNY Gramajo R.N. oxycodone 10 mg tablet: 10 mg every 6 hours . -- 13:06/07/25 GINNY Gramajo R.N. Bactrim DS 800 mg-160 mg tablet -- 13:06/07/25 GINNY Gramajo R.N. Allergies: Penicillins -- 13:06/07/25 GINNY Gramajo R.N. Haldol -- 13:06/07/25 GINNY Gramajo R.N. Problems: Cancer. (stage 3 cervicle. Currently in remission) -- 13:06/07/25 GINNY Gramajo R.N. Renal Failure. (Left kidney only) -- 13:06/07/25 GINNY Gramajo R.N. Depression -- 13:06/07/25 GINNY Gramajo R.N. Anxiety disorder -- 13:06/07/25 GINNY Gramajo R.N. Surgeries: nephrostomy tube -- 13:06/07/25 GINNY Gramajo R.N. cervicle biopsy -- 13:06/07/25 GINNY Gramajo R.N. History 13:06/07/25. SOCIAL HX: Regular vaping. Occasional drug use: marijuana. No alcohol use. The patient has not traveled outside the [place] Infectious disease exposure: No infectious disease exposure. ABUSE ASSESSMENT: The patient answered "yes" to the question(s) "Do you feel safe in your home?" and "no" to the question(s) "Are you afraid to go home?". SELF HARM ASSESSMENT: Self harm assessment was performed. The patient answered no to the question(s) "Have you recently felt down, depressed, or hopeless?" and "Do you have thoughts of harming or killing yourself?". FALL RISK ASSESSMENT: Fall risk assessment completed. No risk factors identified. -- 13:06/07/25 GINNY Gramajo R.N. 2 of 4 Nurse Narrative Interventions 13:06/07/25. Advanced care plan (full code). -- 13:06/07/25 GINNY Gramajo R.N. PHYSICAL ASSESSMENT 14:06/07/25. Ambulatory to room. GENERAL / NEURO / PSYCH: Alert. Oriented X 4. Appears in no acute distress. RESPIRATORY: Respirations not labored. Breath sounds within normal limits. CVS: Normal heart rate and rhythm. Capillary refill less than 2 seconds. GI / : Abdomen soft and nontender. Bowel sounds within normal limits. ( flank pain that radiates to groin). SKIN: Skin is warm and dry. -- 14:06/07/25 GINNY Dempsey R.N. NURSING PROGRESS NOTES 13:37 06/07/25. Site #1 started in the left antecubital space with a 22g angiocath with aseptic technique and good blood return; 1 attempt. Blood drawn: rainbow set tube(s). Labeled in the presence of the patient and sent to the lab. Saline lock flushed with 5 mL saline. -- 13:52 06/07/25 GINNY Dempsey R.N. 13:52 06/07/25. Zofran IVP 4 mg given via Site# 1. Allergies verified and confirmed 5 rights. IV patency established. IV site checked: no pain, redness, or swelling. IV flushed thoroughly pre-medication administration. IVP given by nurse. Information reviewed with patient. Verbalizes understanding. -- 13:52 06/07/25 GINNY Dempsey R.N. 13:53 06/07/25. MORPHine IVP 4 mg given via Site# 1. Allergies verified and confirmed 5 rights. IV patency established. IV site checked: no pain, redness, or swelling. IV flushed thoroughly pre-medication administration. IVP given by nurse. Information reviewed with patient. Verbalizes understanding. -- 13:53 06/07/25 GINNY Dempsey R.N. 15:33 06/07/25. HYDROmorphone (Dilaudid) IVP 0.5 mg given via Site# 1. Allergies verified and confirmed 5 rights. IV patency established. IV site checked: no pain, redness, or swelling. IV flushed thoroughly pre-medication administration. IVP given by nurse. Information reviewed with patient. Verbalizes understanding. Medication Wastage: 0.5 mg wasted. -- 15:34 06/07/25 GINNY Depmsey R.N. DISPOSITION / DISCHARGE 15:36 06/07/25. BP: 124/92 MAP: 97 mmHg. HR: 62 bpm. -- 15:57 06/07/25 GINNY Dempsey R.N. 15:37 06/07/25. HR: 66 bpm. O2 saturation: 97%. -- 15:57 06/07/25 GINNY Dempsey R.N. Departure time: 15:57 06/07/2025. Condition at departure: improved. No learning barriers present. Discharge instructions provided and reviewed with the patient. Patient verbalized understanding. Written instructions 3 of 4 Nurse Narrative provided in Palestinian. The patient was discharged by the physician. The patient was discharged home. The patient left ambulatory and via private vehicle. 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 -- 15:57 06/07/25 EDT Cholo Dempsey R.N. 15:57 06/07/25. Site #1 removed upon discharge. Catheter intact. Bandage applied. -- 15:57 06/07/25 EDT Cholo Dempsey R.N. (Electronically signed by Cholo Dempsey R.N. 06/07/25 18:14:13 EDT) Generated by [facility] 4 of 4 ED MED ADMINISTRATION DETAIL Observed: 0 06/07/2025 12:59 PM Status: F Source: [facility] Counter Top Maker Medication Administration Record [facility] [address] [facility] [place] [address] [id number] 06/07/2025 Patient: TOR BERMAN Sex: Female : 1990 Age: 34y MEASUREMENTS: Wt: 52.2 kg, Ht/Aden: 60.0 in, BMI: 22.46 ALLERGIES: Haldol, Penicillins Medication Ordered Medication Administration Date/Time Zofran IVP 4 mg 13:52 06/07 Zofran IVP 4 mg given via Site# 1. Allergies verified Given (NOW x1) and confirmed 5 rights. IV patency established. IV site checked: no 13:52 06/07/2025 pain, redness, or swelling. IV flushed thoroughly pre-medication Cholo Dempsey R.N. administration. IVP given by nurse. Information reviewed with Scanned patient. Verbalizes understanding. - 13:52 Cholo Dempsey R.N. MORPHine IVP 4 13:53 06/07 MORPHine IVP 4 mg given via Site# 1. Allergies Given mg (NOW x1, HIGH verified and confirmed 5 rights. IV patency established. IV site 13:53 06/07/2025 ALERT checked: no pain, redness, or swelling. IV flushed thoroughly Cholo Dempsey R.N. MEDICATION) pre-medication administration. IVP given by nurse. Information Scanned reviewed with patient. Verbalizes understanding. - 13:53 Cholo Dempsey R.N. HYDROmorphone 15:33 08 HYDROmorphone (Dilaudid) IVP 0.5 mg given via Given (Dilaudid) IVP 0.5 Site# 1. Allergies verified and confirmed 5 rights. IV patency 15:33 06/07/2025 mg (NOW x1, HIGH established. IV site checked: no pain, redness, or swelling. IV Cholo Dempsey R.N. ALERT flushed thoroughly pre-medication administration. IVP given by Scanned MEDICATION) nurse. Information reviewed with patient. Verbalizes understanding. Medication Wastage: 0.5 mg wasted. - 15:34 Cholo Dempsey R.N. 1 of 1 ED SUPER BILL Observed: 06/07/2025 12:59 PM Status: F Source: [address] [id number] 06/07/2025 Patient: TOR BERMAN Sex: Female : 1990 Age: 34y Item Facility Professional Category Description Code Code Quantity Fee Total Nurse/E/M EMERGENCY 571200 1 $0.00 $0.00 DEPARTMENT VISIT HIGH/URGENT SEVERITY (69566-19) Nurse/IV/IM/Infusions IVP additional 637764 2 $0.00 $0.00 push (42226) Nurse/IV/IM/Infusions IVP initial 631100 1 $0.00 $0.00 (61920) Grand Total $0.00 Providers Pepe Victoria D.O. Chief Complaint ABDOMINAL PAIN. 1 of 2 [facility] Principal Diagnosis Abdominal pain. ICD-10 Codes R10.9: Unspecified abdominal pain 2 of 2 ED PHYSICIAN CLINICAL REPORT Observed: 0 06/07/2025 12:59 PM Status: F Source: [facility] Narrative Physician Clinical Narrative [address] [address] [phone] 06/07/2025 12:59:00 Patient: TOR BERMAN Sex: Female : 1990 Age: 34y Disposition: Discharge Disposition Decision Time: 15:46 06/07/2025 Measurements Wt: 52.2 kg, Ht/Aden: 60.0 in, BMI: 22.46 Initial Vital Sign Measured Time BP MAP HR RR O2Sat ETCO2 Temp Pain GCS RTS 13:37 06/07/2025 110/76 87 79 18 98% 97.8 F 8 Time Seen: 13:05 06/07/2025. Arrived- By private vehicle. Historian- patient. HISTORY OF PRESENT ILLNESS Chief Complaint: ABDOMINAL PAIN. It is described as "pain" and it is described as located in the left lower quadrant. This started 3 days. (Patient presents with left-sided pain. History of cervical cancer which caused kidney failure on her left side. Patient required nephrostomy tube. Currently being treated with antibiotics secondary to UTI. Patient also has a history of kidney stones on this side. Patient is due for evaluation by a surgeon as [place] later this month. Patient denies any fever, chills, nausea, vomiting, fall or trauma.). REVIEW OF SYSTEMS CONSTITUTIONAL: No fever or chills. Status: Not . 1 of 12 Narrative PAST HISTORY Anxiety disorder Cancer: (stage 3 cervicle. Currently in remission) Depression Renal Failure: (Left kidney only) Surgeries: cervicle biopsy nephrostomy tube Medications: Bactrim DS 800 mg-160 mg tablet lexapro: 20 mg once a day . Lorazepam Intensol 2 mg/mL oral concentrate: 1 mg three times a day . oxycodone 10 mg tablet: 10 mg every 6 hours . zofran: 4 mg every 6 hours . Allergies: Haldol Penicillins SOCIAL HISTORY No drug use. ADDITIONAL NOTES The nursing notes have been reviewed. PHYSICAL EXAM Vital Signs: Have been reviewed. Appearance: Alert. No acute distress. Neck: Neck supple. CVS: Normal heart rate and rhythm. Heart sounds normal. Pulses normal. Respiratory: No respiratory distress. Breath sounds normal. 2 of 12 Narrative Abdomen: Tenderness in the left side of the abdomen, right lower quadrant and left lower quadrant. Skin: Skin warm and dry. Normal skin color. Extremities: No lower extremity edema. LABS, X-RAYS, AND EKG Laboratory Tests: CBC + DIFF Final BINA: 06/07/2025 13:23:00 EDT MsgRcvd: 06/07/2025 13:35 EDT Lab Test Result Reference Status Received Comments 06/07/2025 13:35 CBC-COMPLETE CBC + DIFF Final EDT BLOOD COUNT 10.9 x 10/UL 06/07/2025 13:35 WBC 4.5 - 10.8 Final Above high normal EDT 3.36 x 10/UL 06/07/2025 13:35 RBC 4.10 - 5.30 Final Below low normal EDT 11.5 g/dl 06/07/2025 13:35 HEMOGLOBIN 12.0 - 16.0 Final Below low normal EDT 33.0 % 06/07/2025 13:35 HEMATOCRIT 34.0 - 46.0 Final Below low normal EDT 06/07/2025 13:35 MCV 98 fl 80 - 99 Final EDT 34 pg 06/07/2025 13:35 MCH 27 - 33 Final Above high normal EDT 06/07/2025 13:35 MCHC 35 X10 3 32 - 36 Final EDT 06/07/2025 13:35 RDW/CV 14.4 % 12.0 - 15.6 Final EDT 3 of 12 Narrative Lab Test Result Reference Status Received Comments 06/07/2025 13:35 PLATELET 375 x10/UL 150 - 450 Final EDT 06/07/2025 13:35 AUTOMATED MPV 7.0 fl 6.6 - 10.5 Final EDT DIFFERENTIAL 06/07/2025 13:35 NEUT % 66.5 % 46.0 - 76.0 Final EDT 06/07/2025 13:35 LYMPH % 22.8 % 20.0 - 45.0 Final EDT 06/07/2025 13:35 MONOS % 7.9 % 0.0 - 10.0 Final EDT 06/07/2025 13:35 EO % 2.6 % 0.0 - 7.0 Final EDT 06/07/2025 13:35 BASO % 0.3 % 0.0 - 2.0 Final EDT 06/07/2025 13:35 Lymph # 2.48 x10/UL 0.80 - 2.80 Final EDT 7.22 x10/UL 06/07/2025 13:35 Neut # 1.50 - 7.10 Final Above high normal EDT 06/07/2025 13:35 Green # 0.86 x10/UL 0.20 - 1.00 Final EDT 06/07/2025 13:35 EO # 0.28 x10/UL 0.00 - 0.50 Final EDT 06/07/2025 13:35 Baso # 0.03 x10/UL 0.00 - 0.10 Final EDT 06/07/2025 13:35 MANUAL DIFF N/A New Order EDT 4 of 12 Narrative Lab Test Result Reference Status Received Comments 06/07/2025 13:35 MORPHOLOGY N/A New Order EDT CMP with eGFR Final BINA: 06/07/2025 13:23:00 EDT MsgRcvd: 06/07/2025 14:13 EDT Lab Test Result Reference Status Received Comments COMPREHENSIVE 06/07/2025 CMP with eGFR Final METABOLIC 14:13 EDT PANEL 135 mmol/l 06/07/2025 SODIUM 136 - 145 Final Below low normal 14:13 EDT 06/07/2025 POTASSIUM 4.4 mmol/L 3.5 - 5.1 Final 14:13 EDT 06/07/2025 CHLORIDE 100 mmol/L 98 - 107 Final 14:13 EDT 06/07/2025 CO2 26.5 mmol/L 21.0 - 32.0 Final 14:13 EDT 06/07/2025 GLUCOSE 105 mg/dl 74 - 106 Final 14:13 EDT 06/07/2025 BUN 13 mg/dl 7 - 18 Final 14:13 EDT 06/07/2025 CREATININE 0.93 mg/dl 0.55 - 1.02 Final 14:13 EDT 06/07/2025 AST/SGOT 19 U/L 13 - 39 Final 14:13 EDT 06/07/2025 ALK PHOS 52 U/L 46 - 116 Final 14:13 EDT 12 Narrative Lab Test Result Reference Status Received Comments 8.3 mg/dl 06/07/2025 CALCIUM 8.5 - 10.1 Final Below low normal 14:13 EDT TOTAL 6.1 g/dl 06/07/2025 6.4 - 8.2 Final PROTEIN Below low normal 14:13 EDT 3.2 g/dL 06/07/2025 ALBUMIN 3.4 - 5.0 Final Below low normal 14:13 EDT 06/07/2025 GLOBULIN 2.9 G/DL 1.5 - 3.8 Final 14:13 EDT 06/07/2025 A/G RATIO 1.1 0.9 - 1.6 Final 14:13 EDT 06/07/2025 TOTAL BILI 0.3 mg/dl 0.2 - 1.0 Final 14:13 EDT 06/07/2025 B/C RATIO 14 ratio 0 - 30 Final 14:13 EDT 06/07/2025 ALT/SGPT 20 U/L 16 - 63 Final 14:13 EDT 06/07/2025 ANION GAP 13 mmol/L 10 - 20 Final 14:13 EDT 06/07/2025 AGE 34 years Final 14:13 EDT 06/07/2025 eGFR >60 ML/MINUTE 60 - 999 Final 14:13 EDT 6 of 12 Narrative Lab Test Result Reference Status Received Comments ACCORDING TO THE NATIONAL KIDNEY DISEASE EDUCATION PROGRAM(NKDE), A NORMAL eGFR IS A VALUE GREATER THAN OR EQUAL TO 60 ML/MIN/1.73 SQ METERS. 06/07/2025 CHRONIC KIDNEY eGFR(AA) >60 ML/MINUTE 60 - 999 Final 14:13 EDT DISEASE: <60mL/MIN/1.73 SQ METERS KIDNEY FAILURE: <15mL/MIN/1.73 SQ METERS THIS TEST SHOULD ONLY BE USED FOR PATIENTS 18 YEARS OF AGE AND OLDER. URINALYSIS Final BINA: 06/07/2025 14:03:00 EDT MsgRcvd: 06/07/2025 14:24 EDT Lab Test Result Reference Status Received Comments 06/07/2025 14:24 URINALYSIS Final URINALYSIS EDT 7 of 12 Narrative Lab Test Result Reference Status Received Comments 06/07/2025 14:24 Specimen Type R New Order EDT NORMAL: 06/07/2025 14:24 Color yellow Final YELLOW EDT NORMAL: 06/07/2025 14:24 Clarity clear Final CLEAR EDT NORMAL: 06/07/2025 14:24 ph 6 Final 5.0-8.0 EDT NORMAL: 06/07/2025 14:24 Protein NEG Final NEGATIVE EDT NORMAL: 06/07/2025 14:24 Glucose NORM Final NORMAL EDT NORMAL: 06/07/2025 14:24 Ketone NEG Final NEGATIVE EDT NORMAL: 06/07/2025 14:24 Bilirubin NEG Final NEGATIVE EDT 10 NORMAL: 06/07/2025 14:24 Blood Final Abnormal NEGATIVE EDT NORMAL: 06/07/2025 14:24 Urobilinog NORM Final NORMAL EDT NORMAL: 06/07/2025 14:24 Sp Stem 1.015 Final 1.010-1.030 EDT NORMAL: 06/07/2025 14:24 Nitrite NEG Final NEGATIVE EDT NORMAL: 06/07/2025 14:24 Leukocytes NEG Final NEGATIVE EDT 8 of 12 Narrative Lab Test Result Reference Status Received Comments 06/07/2025 14:24 Microscopic SEE BELOW Final MICROSCOPIC EDT 06/07/2025 14:24 Wbc 1-5 0-5/hpf Final EDT 06/07/2025 14:24 Rbc 0-5 0-3/hpf Final EDT 06/07/2025 14:24 Casts NONE Final EDT 06/07/2025 14:24 Crystals NONE Final EDT 06/07/2025 14:24 Amorphous NONE Final EDT 06/07/2025 14:24 Bacteria TRACE Final EDT 06/07/2025 14:24 Epi Cells OCC Final EDT 06/07/2025 14:24 Mucous NONE Final EDT 06/07/2025 14:24 Yeast NONE Final EDT Diagnostic Study Tests: CT ABDOMEN/PELVIS W Final EXAM Date: 06/07/2025 14:50:00 EDT MsgRcvd: 06/07/2025 15:39 EDT [place] [id number] Narrative Patient: TOR BERMAN Phone#: : 1990 Age: 34 Gender: F Pt. Type: ER Account: [id number] Location: [facility] Ordering: PEPE VICTORIA Exam Date: 06/07/2025/14:37 Family Phys: Charge Code: [id number] Physician: Ingham Order #: [id number] Dose#: 9.2 mGy PROCEDURE: CT ABDOMEN/PELVIS WITH CONTRAST COMPARISON: [facility], CT, KUB W/O CON, 05/26/2025, 20:31. [facility], CT, ABDOMEN/PELVIS W CON, 05/17/2024, 19:58. [facility], CT, ABDOMEN/PELVIS W CON, 10/30/2023, 13:49. [facility], CT, ABDOMEN/PELVIS W CON, 04/04/2020, 17:51. [facility], CT, ABDOMEN/PELVIS W CON, 05/03/2025, 1:13. INDICATIONS: Abdominal pain. TECHNIQUE: After obtaining the patient's consent, CT images were created with non-ionic intravenous contrast material. All CT scans at this facility use dose modulation, iterative reconstruction, and/or weight based dosing when appropriate to reduce radiation dose to as low as reasonably achievable. IV CONTRAST: Omnipaque 350,80ml TOTAL DOSE: 9.2 CTDIvol(mGy) FINDINGS: LIVER: Stable small low-attenuation lesions measuring 0.5 cm, series 2, image 8 and series 2, image 10 focal low-attenuation adjacent falciform ligament, nonspecific but most often due to focal fatty infiltration of the liver BILIARY: Gallbladder is present and contracted PANCREAS: Normal. No lesion, fluid collection, ductal dilatation, or atrophy. SPLEEN: Normal. No enlargement or focal lesion. KIDNEYS: Kidneys enhance symmetrically. Excreted contrast is seen in the right renal pelvis and ureter. Excreted contrast is present in the left renal pelvis. There is left renal scarring. There is a percutaneous left nephrostomy. Left renal parenchymal thinning. The pigtail is in the lower pole. ADRENALS: Normal. No mass or enlargement. AORTA/VASCULAR: No aortic aneurysm. There are are atherosclerotic calcifications of the right iliac artery.. RETROPERITONEUM: Normal. No mass or adenopathy. Continued Report - Page 2 of 2 Patient: TOR BERMAN Narrative Phone#: : 1990 Age: 34 Gender: F Pt. Type: ER Account: [id number] Location: 052 Ordering: PEPE VICTORIA Exam Date: 06/07/2025/14:37 Family Phys: Charge Code: [id number] Physician: Ingham Order #: [id number] Dose#: 9.2 mGy BOWEL/MESENTERY: Ingested materials present in the stomach. No bowel obstruction or dilatation. Moderate stool burden. The appendix is not visualized. ABDOMINAL WALL: Normal. No mass or hernia. URINARY BLADDER: Normal. No visible focal wall thickening, lesion, or calculus. PELVIC NODES: Normal. No adenopathy. PELVIC ORGANS: Normal. No visible mass. Pelvic organs appropriate for patient age. BONES: Normal. No bony lesion or fracture. LUNG BASES: There are dependent changes. OTHER: Negative. CONCLUSION: 1. No appreciable acute intra-abdominal or pelvic abnormality. Left percutaneous nephrostomy is in stable position. Dictated by: Stacey Watt MD on 06/07/2025 at 15:20 Approved by: Stacey Watt MD on 06/07/2025 at 15:35 PROGRESS AND PROCEDURES Differential Diagnosis: Other possible considerations: Kidney stone, UTI, pyelonephritis, chronic abdominal pain. MEDICAL DECISION MAKING: (patient appears well nontoxic. Treated with a 1st dose of morphine and Zofran and then Dilaudid. Lab work unremarkable. CT of the abdomen pelvis shows no acute process. Urinalysis shows improvement of UTI. Patient is feeling improved. Patient has pain medication at home through her palliative care physician. [facility] and asked to return for new or worsening symptoms. Stable time of discharge.). Disposition: Condition: good. Disposition Decision Time: 15:46 06/07/2025. Patient discharged. Discharged in good condition. CLINICAL IMPRESSION Abdominal pain. of 12 Narrative DISCHARGE INSTRUCTIONS Follow-up: Follow up with your healthcare provider in three days. Call for an appointment. (Electronically signed by Pepe Victoria D.O. 06/07/25 15:48:03 EDT) Generated by [facility] URINALYSIS Collected: 5 7:45 PM Status: C Source: [facility] TYPE CODE TESTS RESULT OUT OF RANGE REFERENCE UNITS LAB URINALYSIS(ISAIAH NC) URINALYSIS Result Comment: CORRECTED REPORT URINALYSIS LAB Specimen Type(LOINC) Specimen Type R LAB Color(LOINC) Color p.yel NORMAL: YELLOW LAB Clarity(LOINC) Clarity SL. CLOUDY Abnormal NORM AL: CLEAR LAB ph(LOINC) ph 7 NORMAL: 5.0-8.0 LAB Protein(LOINC) Protein 30 Abnormal RAJIV L: NEGATIVE LAB Glucose(LOINC) Glucose NORM RAJIV L: NORMAL LAB Ketone(LOINC) Ketone NEG NORMAL : NEGATIVE LAB Bilirubin(LOIN C) Bilirubin NEG NORMAL: NEGATIVE LAB Blood(LOINC) Blood 150 Abnormal NORMAL: NEGATIVE LAB Urobilinog(ISAIAH NC) Urobilinog NORM NORMAL: NORMAL LAB Sp Stem(LOINC) Sp Stem 1.010 NORMAL: 1.010-1.030 LAB Nitrite(LOINC) Nitrite POS RAJIV L: NEGATIVE LAB Leukocytes(ISAIAH NC) Leukocytes 500 Abnormal NORMAL: NEGATIVE LAB Microscopic(LO INC) Microscopic SEE BELOW Result Comment: MICROSCOPIC LAB Wbc(LOINC) Wbc 16-25 0-5/hpf LAB Rbc(LOINC) Rbc 5-10 0-3/hpf LAB Casts(LOINC) Casts NONE LAB Crystals(LOINC ) Crystals NONE LAB Amorphous(LOIN C) Amorphous NONE LAB Bacteria(LOINC ) Bacteria 2+ LAB Epi Cells(LOINC) Epi Cells OCC LAB Mucous(LOINC) Mucous 1+ LAB Yeast(LOINC) Yeast NONE Result Comment: FOLLOWING RESULTS REPORTED IN ERROR CA] Clarity clear <-- *Previously reported in error 06/05/25.1956.ALA. .URIS LAB ERROR DUE TO(LOINC) ERROR DUE TO MISTYPED Performed By: #### [id number] ## ## [facility],[address] [place] [address] URINE CULTURE [CCL] Observed: 06/05/2025 7:45 PM Status: F Source: [facility] URCUL See Results Below See Below CULTURE, URINE Mixed microbiota, including predominantly: CULTURE, URINE PSEUDOMONAS AERUGINOSA >=100,000 CFU/ml Pseudomonas aeruginosa ORGANISM: PSEUDOMONAS AERUGINOSA ANTIBIOTIC ANA LILIA DILUTN ANA LILIA INTERP Cefepime 8 Susceptible Meropenem 8 Resistant Piperacillin/Tazobac 64 Resistant Gentamicin <=2 Resistant Tobramycin <=2 No Interpretat This isolate is intermediate or susceptible to tobramycin. If discrimination bet Amikacin <=8 Susceptible Ciprofloxacin 0.25 Susceptible This test was developed and its performance characteristics determined by the [facility]'s [facility] [place] ([facility]). It has not been cleared or approved by the FDA. [facility] is regulated under CLIA as qualified to perform high-complexity testing. This test is used for clinical purposes. It should not be regarded as investigational or for research. SOURCE: Urine (Nonspecific) [facility] [address] [place] [address] Joao Alvarenga III, M.D. [id number] SEND TO IC YES Performed By: #### [id number] ## ## [place] [id number] LIPASE Collected: 5 6:26 PM Status: F Source: [facility] TYPE CODE TESTS RESULT OUT OF RANGE REFERENCE UNITS LAB LIPASE(LOINC) LIPASE 15.0 15.0 - 78.0 U/L Result Comment: *PLEASE NOTE THAT RANGES FOR LIPASE HAVE CHANGED OF 10/31/23 DUE TO AN ASSAY UPDATE BY THE ELECTRONICS ENGINEERING TECHNOLOGIST.THE NEW ASSAY RANGE IS 6-250 U/L, WITH A REFERENCE RANGE OF 16-77 U/L. Performed By: #### [id number] ## ## [place] [id number] CMP WITH EGFR Collected: 5 6:26 PM Status: F Source: [facility] TYPE CODE TESTS RESULT OUT OF RANGE REFERENCE UNITS LAB CMP with eGFR(LOINC) CMP with eGFR Result Comment: COMPREHENSIV E METABOLIC PANEL LAB SODIUM(LOINC) SODIUM 140 136 - 145 mmol/l LAB POTASSIUM(LOIN C) POTASSIUM 4.4 3.5 - 5.1 mmol/L LAB CHLORIDE(LOINC ) CHLORIDE 106 98 - 107 mmol/L LAB CO2(LOINC) CO2 26.0 21.0 - 32.0 mmol/L LAB GLUCOSE(LOINC) GLUCOSE 88 74 - 106 mg/dl LAB BUN(LOINC) BUN 12 7 - 18 mg/dl LAB CREATININE(ISAIAH NC) CREATININE 0.93 0.55 - 1.02 mg/dl LAB AST/SGOT(LOINC ) AST/SGOT 12 Low 13 - 39 U/L LAB ALK PHOS(LOINC) ALK PHOS 56 46 - 116 U/L LAB CALCIUM(LOINC) CALCIUM 8.4 Low 8.5 - 10.1 mg/dl LAB TOTAL PROTEIN(LOINC) TOTAL PROTEIN 6.0 Low 6.4 - 8.2 g/dl LAB ALBUMIN(LOINC) ALBUMIN 3.1 Low 3.4 - 5.0 g/dL LAB GLOBULIN(LOINC ) GLOBULIN 2.9 1.5 - 3.8 G/DL LAB A/G RATIO(LOINC) A/G RATIO 1.1 0.9 - 1.6 LAB TOTAL BILI(LOINC) TOTAL BILI 0.2 0.2 - 1.0 mg/dl LAB B/C RATIO(LOINC) B/C RATIO 13 0 - 30 ratio LAB ALT/SGPT(LOINC ) ALT/SGPT 15 Low 16 - 63 U/L LAB ANION GAP(LOINC) ANION GAP 12 10 - 20 mmol/L LAB AGE(LOINC) AGE 34 years LAB eGFR(LOINC) eGFR >60 60 - 999 ML/MINUT E LAB eGFR(AA)(LOINC ) eGFR(AA) >60 60 - 999 ML/MINUT E Result Comment: ACCORDING TO THE NATIONAL KIDNEY DISEASE EDUCATION PROGRAM(NKDE), A NORMAL eGFR IS A VALUE GREATER THAN OR EQUAL TO 60 ML/MIN/1.73 SQ METERS. CHRONIC KIDNEY DISEASE: <60mL/MIN/1.73 SQ METERS KIDNEY FAILURE: <15mL/MIN/1.73 SQ METERS THIS TEST SHOULD ONLY BE USED FOR PATIENTS 18 YEARS OF AGE AND OLDER. Performed By: #### [id number] ## ## [place] [id number] LACTATE Collected: 5 6:26 PM Status: F Source: [facility] TYPE CODE TESTS RESULT OUT OF RANGE REFERENCE UNITS LAB LACTATE(LOINC) LACTATE 1.1 0.4 - 2.0 mmol/L Performed By: #### [id number] ## ## [place] [id number] CBC + DIFF Collected: 5 6:26 PM Status: F Source: [facility] TYPE CODE TESTS RESULT OUT OF RANGE REFERENCE UNITS LAB CBC + DIFF(LOINC) CBC + DIFF Result Comment: CBC-COMPLETE BLOOD COUNT LAB WBC(LOINC) WBC 11.3 High 4.5 - 10.8 x 10EE3/UL LAB RBC(LOINC) RBC 3.66 Low 4.10 - 5.30 x 10EE6/UL LAB HEMOGLOBIN(ISAIAH NC) HEMOGLOBIN 12.2 12.0 - 16.0 g/dl LAB HEMATOCRIT(ISAIAH NC) HEMATOCRIT 36.2 34.0 - 46.0 % LAB MCV(LOINC) MCV 99 80 - 99 fl LAB MCH(LOINC) MCH 33 27 - 33 pg LAB MCHC(LOINC) MCHC 34 32 - 36 X10 3 LAB RDW/CV(LOINC) RDW/CV 14.0 12.0 - 15.6 % LAB PLATELET(LOINC ) PLATELET 371 150 - 450 x10EE3/UL LAB MPV(LOINC) MPV 7.3 6.6 - 10.5 fl Result Comment: AUTOMATED DI FFERENTIAL LAB NEUT %(LOINC) NEUT % 69.6 46.0 - 76.0 % LAB LYMPH %(LOINC) LYMPH % 18.2 Low 20.0 - 45.0 % LAB MONOS %(LOINC) MONOS % 8.6 0.0 - 10.0 % LAB EO %(LOINC) EO % 3.2 0.0 - 7.0 % LAB BASO %(LOINC) BASO % 0.4 0.0 - 2.0 % LAB Lymph #(LOINC) Lymph # 2.05 0.80 - 2.80 x10EE 3/UL LAB Neut #(LOINC) Neut # 7.85 High 1.50 - 7.10 x10EE3 /UL LAB Green #(LOINC) Green # 0.97 0.20 - 1.00 x10EE3 /UL LAB EO #(LOINC) EO # 0.36 0.00 - 0.50 x10EE3/U L LAB Baso #(LOINC) Baso # 0.04 0.00 - 0.10 x10EE3 /UL LAB MANUAL DIFF(LOINC) MANUAL DIFF N/A LAB MORPHOLOGY(ISAIAH NC) MORPHOLOGY N/A Performed By: #### [id number] ## ## [facility],[address] [place], [place] [id number] ED ORDER SHEET (CPOE ONLY) Observed: 01/2025 5:46 PM Status: C Source: [facility] Order Sheet Order Sheet [address] [address] [id number] 06/05/2025 Patient: TOR BERMAN Sex: Female : 1990 Age: 34y MEASUREMENTS: Wt: 52.2 kg, Ht/Aden: 65.0 in, BMI: 19.14 ALLERGIES: Haldol, Penicillins MEDICATION/IV/DRIP/FLUID ORDERS Order Description Priority Entered Acknowledged Completed IV NS 0.9 %1000 mL at 999 18:53 06/05/2025 19:17 19:34 mL/hr (NOW x1) Andrew Winter M.D. 06/05/2025 06/05/2025 Yohana Melvin R.N. Zofran IVP4 mg (NOW x1) 18:53 06/05/2025 19:17 19:34 Andrew Winter M.D. 06/05/2025 06/05/2025 Yohana Melvin, R.N. HYDROmorphone (Dilaudid) 18:53 06/05/2025 19:17 19:34 IVP0.5 mg (NOW x1, HIGH Andrew Winter M.D. 06/05/2025 06/05/2025 ALERT MEDICATION) Yohana Melvin, R.N. Reason for ordering with alerts: Clinical consideration given --18:53 06/05/2025 Andrew Winter M.D. cefTRIAXone (Rocephin) IVPB 20:21 06/05/2025 20:27 20:43 1gm/50ml NS1 g diluted in Gonzalez Pineda D.O. 06/05/2025 06/05/2025 sodium chloride IVPB 0.9 % Yohana Melvin, R.N. Minibag+ 50 mL at 100 mL/hr (NOW x1) Reason for ordering with alerts: Clinical consideration given --20:21 06/05/2025 Gonzalez Pineda D.O. 1 of 3 Order Sheet HYDROmorphone (Dilaudid) 20:21 06/05/2025 20:27 20:41 IVP1 mg (NOW x1, HIGH ALERT Gonzalez Pineda D.O. 06/05/2025 06/05/2025 MEDICATION) Yohana Melvin RFara Reason for ordering with alerts: Clinical consideration given --20:21 06/05/2025 Gonzalez Pineda D.O. LAB ORDERS Order Description Priority Entered Acknowledged Collected Completed CBC w Diff Stat Stat 18:53 06/05/2025 19:09 06/05/2025 19:09 06/05/2025 Natali Sandhu R.N. Kobe Miller, R.N. CMP Stat Stat 18:53 06/05/2025 19:09 06/05/2025 19:09 06/05/2025 Natali Sandhu R.N. Kobe Miller, R.N. Lipase Stat Stat 18:53 06/05/2025 19:09 06/05/2025 19:09 06/05/2025 Natali Sandhu R.N. Kobe Miller, R.N. Lactate, Serum Stat Stat 18:53 06/05/2025 19:09 06/05/2025 19:09 06/05/2025 Natali Sandhu R.N. Kobe Miller, R.N. Urinalysis Stat Stat 18:53 06/05/2025 19:09 06/05/2025 19:38 06/05/2025 Natali Sandhu R.N. Seth Lapp, R.N. Urine Culture [CCL] Stat Stat 20:21 06/05/2025 20:27 06/05/2025 Kendra Stanford, R.NApril DIAGNOSTIC STUDY ORDERS Order Description Priority Entered Acknowledged Completed STAFF ORDERS Order Description Priority Entered Acknowledged Collected Completed 2 of 3 Order Sheet [Electronically signed by Andrew Winter M.D. (06/05/2025 19:21 EDT)] [Electronically signed by Gonzalez Pineda D.O. (06/05/2025 21:33 EDT)] 3 of 3 ED SUPER BILL Observed: 06/05/2025 5:46 PM Status: C [facility] [address] [address] [id number] 06/05/2025 Patient: TOR BERMAN Sex: Female : 1990 Age: 34y Item Facility Professional Category Description Code Code Quantity Fee Total Drugs Normal Saline 932846 1 $0.00 $0.00 1000cc (868504) Nurse/E/M EMERGENCY 667815 1 $0.00 $0.00 DEPARTMENT VISIT HIGH/URGENT SEVERITY (26578-91) Nurse/IV/IM/Infusions Drip/IVPB initial 283046 1 $0.00 $0.00 (12928) Nurse/IV/IM/Infusions Hydration 232411 1 $0.00 $0.00 additional hour (63553) Nurse/IV/IM/Infusions IVP additional 681172 2 $0.00 $0.00 push (58148) Nurse/IV/IM/Infusions IVP same med 129997 1 $0.00 $0.00 (31 min apart) (32297) Grand Total $0.00 1 of 2 [facility] Providers Andrew Winter M.D. Gonzalez Pineda D.O. Chief Complaints VOMITING. VOMITING. Principal Diagnosis Acute urinary tract infection with cystitis and hematuria associated with indwelling catheter. ICD-10 Codes N30.91: Cystitis, unspecified with hematuria 2 of 2 ED VITALS FLOW SHEET Observed: 5:46 PM Status: C Source: [facility] Vitals Vital Sign Flow Sheet [address] [address] [id number] 06/05/2025 Patient: TOR BERMAN Sex: Female : 1990 Age: 34y Measurements Wt: 52.2 kg, Ht/Aden: 65.0 in, BMI: 19.14 Measured Time BP MAP HR RR O2Sat ETCO2 Temp Pain GCS RTS 21:01 06/05/2025 124/72 89 68 18 98% 3 17:51 06/05/2025 135/94 108 74 16 97% 97.8 F 8 ED VISIT SUMMARY Observed: 06/05/2025 5:46 PM Status: C Source: [facility] Visit Overview Visit Overview [address] [place] [address] [phone] 06/05/2025 Patient: TOR BERMAN Sex: Female : 1990 Age: 34y 06/05/2025 09:33 PM EDT ED Arrival:17:46 06/05/2025 EDT Status: Recent Travel:no Language:eng Adv Directive:No Isolation Status: Ethnicity:N Fall Risk:no risk Infectious Disease Exposure:no Measurements:5'5" / 165.1 Self-Harm Status:no risk Sepsis Screen:negative cm 115.0 lb / 52.2 kg Chief Complaint:LEFT-SIDED FLANK PAIN, LOW BACK PAIN, (pace), and (x1 week. was seen at [facility] for kidney stones on 06/03. pt has a disc that has imaging on it) ALLERGIES Haldol Penicillins HOME MEDICATIONS Bactrim DS 800 mg-160 mg tablet lexapro: 20 mg once a day . Visit Overview Lorazepam Intensol 2 mg/mL oral concentrate: 1 mg three times a day . oxycodone 10 mg tablet: 10 mg every 6 hours . zofran: 4 mg every 6 hours . PAST MEDICAL HISTORY / PROBLEMS Anxiety disorder Cancer. (stage 3 cervicle. Currently in remission) Depression Renal Failure. (Left kidney only) See nurses notes PAST SURGICAL HISTORY nephrostomy tube SOCIAL HISTORY Smoking status: Unknown Alcohol use: No Drug use: No ED COURSE MEDICATIONS GIVEN IN EMERGENCY DEPARTMENT 19:33 06/05/25 IV NS 0.9 % 1000 mL 999 mL/hr 19:34 06/05/25 Zofran IVP 4 mg 19:34 06/05/25 HYDROmorphone (Dilaudid) IVP 0.5 mg 20:41 06/05/25 HYDROmorphone (Dilaudid) IVP 1 mg cefTRIAXone (Rocephin) IVPB 1gm/50ml NS 1 g diluted in sodium chloride IVPB 0.9 % 20:42 06/05/25 Minibag+ 50 mL 100 mL/hr IV SITE INFORMATION INTAKE OUTPUT REASSESMENT (most recent) 2 of 3 Visit Overview 18:15 06/05/25. GENERAL / NEURO / PSYCH: Alert. Oriented X 4. Appears in no acute distress. RESPIRATORY: Respirations not labored. Breath sounds within normal limits. CVS: Normal heart rate and rhythm. Capillary refill less than 2 seconds. GI / : Emesis noted. Abdomen nontender. Pain with urination. ( left flank pain). VITAL SIGNS First Vitals Last Vitals Temp 17:51 06/05/25 97.8 F Temp 21:01 06/05/25 BP 17:51 06/05/25 135/94 BP 21:01 06/05/25 124/72 HR 17:51 06/05/25 74 HR 21:01 06/05/25 68 RR 17:51 06/05/25 16 RR 21:01 06/05/25 18 O2 Sat 17:51 06/05/25 97% O2 Sat 21:01 06/05/25 98% Pain 17:51 06/05/25 8 Pain 21:01 06/05/25 3 ETCO2 17:51 06/05/25 ETCO2 21:01 06/05/25 GCS 17:51 06/05/25 GCS 21:01 06/05/25 RTS 17:51 06/05/25 RTS 21:01 06/05/25 PROCEDURES NURSING INTERVENTIONS LABS / STUDIES LABS / STUDIES ORDERED CBC w Diff CMP Lactate, Serum Lipase Urinalysis Urine Culture [CCL] CLINICAL IMPRESSION ACUTE URINARY TRACT INFECTION WITH CYSTITIS AND HEMATURIA ASSOCIATED WITH INDWELLING CATHETER 3 of 3 ED PHYSICIAN CLINICAL REPORT Observed: 0 06/05/2025 5:46 PM Status: C Source: [facility] Narrative Physician Clinical Narrative [address] [address] [phone] 06/05/2025 17:46:00 Patient: TOR BERMAN Sex: Female : 1990 Age: 34y Measurements Wt: 52.2 kg, Ht/Aden: 65.0 in, BMI: 19.14 Initial Vital Sign Measured Time BP MAP HR RR O2Sat ETCO2 Temp Pain GCS RTS 17:51 06/05/2025 135/94 108 74 16 97% 97.8 F 8 Time Seen: 18:45 06/05/2025. Arrived- By private vehicle. Historian- patient. HISTORY OF PRESENT ILLNESS Chief Complaint: VOMITING. The patient has had nausea, vomiting and abdominal pain. No diarrhea or black stools. Has recently been on antibiotics (Presently on antibiotics for UTI.). This started about 3 days ago and is still present. The illness is described as moderate. (Patient has a long history of kidney problems. This is secondary to treatment for cervical cancer that she had years ago. She has nephrostomy tubes and is scheduled to eventually have a nephrectomy. She is scheduled to see her urologist in [facility] this coming week to get that scheduled. Was seen here several days ago treated for recurrent nausea and vomiting and abdominal pain.). Similar symptoms previously. Recent medical care: The patient was seen recently at this facility and another facility in the emergency department. 1 of 16 Narrative REVIEW OF SYSTEMS RESPIRATORY: No cough. NEUROLOGICAL: No headache or dizziness. CONSTITUTIONAL: No fever or muscle aches. CVS: No chest pain. PAST HISTORY See nurses notes. Anxiety disorder Cancer: (stage 3 cervicle. Currently in remission) Depression Renal Failure: (Left kidney only) Surgeries: cervicle biopsy nephrostomy tube Medications: Bactrim DS 800 mg-160 mg tablet lexapro: 20 mg once a day . Lorazepam Intensol 2 mg/mL oral concentrate: 1 mg three times a day . oxycodone 10 mg tablet: 10 mg every 6 hours . zofran: 4 mg every 6 hours . Allergies: Haldol Penicillins SOCIAL HISTORY Regular vaping. ADDITIONAL NOTES The nursing notes have been reviewed. 2 of 16 Narrative PHYSICAL EXAM Vital Signs: Have been reviewed. Appearance: Alert. Oriented X3. Patient in mild distress. Eyes: Pupils equal, round and reactive to light. ENT: Nose normal. Pharynx normal. Neck: Normal inspection. Neck supple. CVS: Normal heart rate and rhythm. Heart sounds normal. Pulses normal. Respiratory: No respiratory distress. Painless inspiration. Breath sounds normal. Abdomen: Soft. Mild tenderness diffusely. Bowel sounds normal. Abnormal bowel sounds: diminished. No organomegaly. No mass. Femoral pulses equal. Back: Normal inspection. Skin: Skin warm and dry. Normal skin color. No rash. Extremities: Extremities exhibit normal ROM. No lower extremity edema. Neuro: Oriented X 3. No motor deficit. No sensory deficit. LABS, X-RAYS, AND EKG Laboratory Tests: CBC + DIFF Final BINA: 06/05/2025 18:26:00 EDT MsgRcvd: 06/05/2025 19:06 EDT Lab Test Result Reference Status Received Comments 06/05/2025 19:06 CBC-COMPLETE CBC + DIFF Final EDT BLOOD COUNT 11.3 x 10/UL 06/05/2025 19:06 WBC 4.5 - 10.8 Final Above high normal EDT 3.66 x 10/UL 06/05/2025 19:06 RBC 4.10 - 5.30 Final Below low normal EDT 06/05/2025 19:06 HEMOGLOBIN 12.2 g/dl 12.0 - 16.0 Final EDT 3 of 16 Narrative Lab Test Result Reference Status Received Comments 06/05/2025 19:06 HEMATOCRIT 36.2 % 34.0 - 46.0 Final EDT 06/05/2025 19:06 MCV 99 fl 80 - 99 Final EDT 06/05/2025 19:06 MCH 33 pg 27 - 33 Final EDT 06/05/2025 19:06 MCHC 34 X10 3 32 - 36 Final EDT 06/05/2025 19:06 RDW/CV 14.0 % 12.0 - 15.6 Final EDT 06/05/2025 19:06 PLATELET 371 x10/UL 150 - 450 Final EDT 06/05/2025 19:06 AUTOMATED MPV 7.3 fl 6.6 - 10.5 Final EDT DIFFERENTIAL 06/05/2025 19:06 NEUT % 69.6 % 46.0 - 76.0 Final EDT 18.2 % 06/05/2025 19:06 LYMPH % 20.0 - 45.0 Final Below low normal EDT 06/05/2025 19:06 MONOS % 8.6 % 0.0 - 10.0 Final EDT 06/05/2025 19:06 EO % 3.2 % 0.0 - 7.0 Final EDT 06/05/2025 19:06 BASO % 0.4 % 0.0 - 2.0 Final EDT 06/05/2025 19:06 Lymph # 2.05 x10/UL 0.80 - 2.80 Final EDT 4 of 16 Narrative Lab Test Result Reference Status Received Comments 7.85 x10/UL 06/05/2025 19:06 Neut # 1.50 - 7.10 Final Above high normal EDT 06/05/2025 19:06 Green # 0.97 x10/UL 0.20 - 1.00 Final EDT 06/05/2025 19:06 EO # 0.36 x10/UL 0.00 - 0.50 Final EDT 06/05/2025 19:06 Baso # 0.04 x10/UL 0.00 - 0.10 Final EDT 06/05/2025 19:06 MANUAL DIFF N/A New Order EDT 06/05/2025 19:06 MORPHOLOGY N/A New Order EDT (Electronically signed by Andrew Winter M.D. 06/05/25 19:21:03 EDT) Generated by [facility] Physician Clinical Narrative [address] [place] [address] [phone] 06/05/2025 17:46:00 Patient: TOR BERMAN Sex: Female : 1990 Age: 34y Disposition: Discharge to Home Disposition Decision Time: 20:34 06/05/2025 Departure Time: 21:12 06/05/2025 Measurements Wt: 52.2 kg, Ht/Aden: 65.0 in, BMI: 19.14 5 of 16 Narrative Initial Vital Sign Measured Time BP MAP HR RR O2Sat ETCO2 Temp Pain GCS RTS 17:51 06/05/2025 135/94 108 74 16 97% 97.8 F 8 Time Seen: 19:15 06/05/2025. Arrived- By private vehicle. Historian- patient. HISTORY OF PRESENT ILLNESS Chief Complaint: VOMITING. This started today and is still present. The patient has had left-sided flank pain. The patient has had nausea and vomiting. The illness is described as moderate. Similar symptoms previously. Patient has had similar symptoms several times. Recent medical care: ( Seen at [facility] just this past week.). REVIEW OF SYSTEMS EYES: No blurred vision. : No difficulty with urination, dark urine or excessive urination. NEUROLOGICAL: No headache, dizziness or fainting episodes. THROAT: No sore throat. RESPIRATORY: No cough or difficulty breathing. CVS: No chest pain. SKIN: No skin rash or jaundice. CONSTITUTIONAL: No fever or muscle aches. MUSCULOSKELETAL: The patient has had back pain. PAST HISTORY See nurses notes. Anxiety disorder Cancer: (stage 3 cervicle. Currently in remission) Depression Renal Failure: (Left kidney only) Surgeries: cervicle biopsy nephrostomy tube Medications: 6 of 16 Narrative Bactrim DS 800 mg-160 mg tablet lexapro: 20 mg once a day . Lorazepam Intensol 2 mg/mL oral concentrate: 1 mg three times a day . oxycodone 10 mg tablet: 10 mg every 6 hours . zofran: 4 mg every 6 hours . Allergies: Haldol Penicillins SOCIAL HISTORY Smoker- current status unknown. Heavy vaping. No alcohol use or drug use. ADDITIONAL NOTES The nursing notes have been reviewed. PHYSICAL EXAM Appearance: Alert. Oriented X3. Patient in mild distress. Eyes: Pupils equal, round and reactive to light. ENT: Nose normal. Pharynx normal. Neck: Normal inspection. Neck supple. CVS: Normal heart rate and rhythm. Heart sounds normal. Pulses normal. Respiratory: No respiratory distress. Painless inspiration. Breath sounds normal. Abdomen: Soft and nontender. Bowel sounds normal. No organomegaly. No mass. Back: (left nephrostomy tube in place). Skin: Skin warm and dry. No rash. Extremities: Extremities exhibit normal ROM. No lower extremity edema. Neuro: Oriented X 3. No motor deficit. No sensory deficit. LABS, X-RAYS, AND EKG Laboratory Tests: CBC + DIFF Final 7 16 Narrative BINA: 06/05/2025 18:26:00 EDT MsgRcvd: 06/05/2025 19:06 EDT Lab Test Result Reference Status Received Comments 06/05/2025 19:06 CBC-COMPLETE CBC + DIFF Final EDT BLOOD COUNT 11.3 x 10/UL 06/05/2025 19:06 WBC 4.5 - 10.8 Final Above high normal EDT 3.66 x 10/UL 06/05/2025 19:06 RBC 4.10 - 5.30 Final Below low normal EDT 06/05/2025 19:06 HEMOGLOBIN 12.2 g/dl 12.0 - 16.0 Final EDT 06/05/2025 19:06 HEMATOCRIT 36.2 % 34.0 - 46.0 Final EDT 06/05/2025 19:06 MCV 99 fl 80 - 99 Final EDT 06/05/2025 19:06 MCH 33 pg 27 - 33 Final EDT 06/05/2025 19:06 MCHC 34 X10 3 32 - 36 Final EDT 06/05/2025 19:06 RDW/CV 14.0 % 12.0 - 15.6 Final EDT 06/05/2025 19:06 PLATELET 371 x10/UL 150 - 450 Final EDT 06/05/2025 19:06 AUTOMATED MPV 7.3 fl 6.6 - 10.5 Final EDT DIFFERENTIAL 06/05/2025 19:06 NEUT % 69.6 % 46.0 - 76.0 Final EDT 18.2 % 06/05/2025 19:06 LYMPH % 20.0 - 45.0 Final Below low normal EDT 8 of 16 Narrative Lab Test Result Reference Status Received Comments 06/05/2025 19:06 MONOS % 8.6 % 0.0 - 10.0 Final EDT 06/05/2025 19:06 EO % 3.2 % 0.0 - 7.0 Final EDT 06/05/2025 19:06 BASO % 0.4 % 0.0 - 2.0 Final EDT 06/05/2025 19:06 Lymph # 2.05 x10/UL 0.80 - 2.80 Final EDT 7.85 x10/UL 06/05/2025 19:06 Neut # 1.50 - 7.10 Final Above high normal EDT 06/05/2025 19:06 Green # 0.97 x10/UL 0.20 - 1.00 Final EDT 06/05/2025 19:06 EO # 0.36 x10/UL 0.00 - 0.50 Final EDT 06/05/2025 19:06 Baso # 0.04 x10/UL 0.00 - 0.10 Final EDT 06/05/2025 19:06 MANUAL DIFF N/A New Order EDT 06/05/2025 19:06 MORPHOLOGY N/A New Order EDT CMP with eGFR Final BINA: 06/05/2025 18:26:00 EDT MsgRcvd: 06/05/2025 19:35 EDT Lab Test Result Reference Status Received Comments COMPREHENSIVE 06/05/2025 CMP with eGFR Final METABOLIC 19:35 EDT PANEL 9 of 16 Narrative Lab Test Result Reference Status Received Comments 06/05/2025 SODIUM 140 mmol/l 136 - 145 Final 19:35 EDT 06/05/2025 POTASSIUM 4.4 mmol/L 3.5 - 5.1 Final 19:35 EDT 06/05/2025 CHLORIDE 106 mmol/L 98 - 107 Final 19:35 EDT 06/05/2025 CO2 26.0 mmol/L 21.0 - 32.0 Final 19:35 EDT 06/05/2025 GLUCOSE 88 mg/dl 74 - 106 Final 19:35 EDT 06/05/2025 BUN 12 mg/dl 7 - 18 Final 19:35 EDT 06/05/2025 CREATININE 0.93 mg/dl 0.55 - 1.02 Final 19:35 EDT 12 U/L 06/05/2025 AST/SGOT 13 - 39 Final Below low normal 19:35 EDT 06/05/2025 ALK PHOS 56 U/L 46 - 116 Final 19:35 EDT 8.4 mg/dl 06/05/2025 CALCIUM 8.5 - 10.1 Final Below low normal 19:35 EDT TOTAL 6.0 g/dl 06/05/2025 6.4 - 8.2 Final PROTEIN Below low normal 19:35 EDT 3.1 g/dL 06/05/2025 ALBUMIN 3.4 - 5.0 Final Below low normal 19:35 EDT 06/05/2025 GLOBULIN 2.9 G/DL 1.5 - 3.8 Final 19:35 EDT 10 of 16 Narrative Lab Test Result Reference Status Received Comments 06/05/2025 A/G RATIO 1.1 0.9 - 1.6 Final 19:35 EDT 06/05/2025 TOTAL BILI 0.2 mg/dl 0.2 - 1.0 Final 19:35 EDT 06/05/2025 B/C RATIO 13 ratio 0 - 30 Final 19:35 EDT 15 U/L 06/05/2025 ALT/SGPT 16 - 63 Final Below low normal 19:35 EDT 06/05/2025 ANION GAP 12 mmol/L 10 - 20 Final 19:35 EDT 06/05/2025 AGE 34 years Final 19:35 EDT 06/05/2025 eGFR >60 ML/MINUTE 60 - 999 Final 19:35 EDT 11 of 16 Narrative Lab Test Result Reference Status Received Comments ACCORDING TO THE NATIONAL KIDNEY DISEASE EDUCATION PROGRAM(NKDE), A NORMAL eGFR IS A VALUE GREATER THAN OR EQUAL TO 60 ML/MIN/1.73 SQ METERS. 06/05/2025 CHRONIC KIDNEY eGFR(AA) >60 ML/MINUTE 60 - 999 Final 19:35 EDT DISEASE: <60mL/MIN/1.73 SQ METERS KIDNEY FAILURE: <15mL/MIN/1.73 SQ METERS THIS TEST SHOULD ONLY BE USED FOR PATIENTS 18 YEARS OF AGE AND OLDER. LACTATE Final BINA: 06/05/2025 18:26:00 EDT MsgRcvd: 06/05/2025 19:35 EDT Lab Test Result Reference Status Received Comments 06/05/2025 19:35 LACTATE 1.1 mmol/L 0.4 - 2.0 Final EDT 12 Narrative LIPASE Final BINA: 06/05/2025 18:26:00 EDT MsgRcvd: 06/05/2025 19:35 EDT Lab Test Result Reference Status Received Comments *PLEASE NOTE THAT RANGES FOR LIPASE HAVE CHANGED OF 10/31/23 DUE TO AN ASSAY 06/05/2025 LIPASE 15.0 U/L 15.0 - 78.0 Final UPDATE BY THE 19:35 EDT ELECTRONICS ENGINEERING TECHNOLOGIST.THE NEW ASSAY RANGE IS 6-250 U/L, WITH A REFERENCE RANGE OF 16-77 U/L. URINALYSIS Final BINA: 06/05/2025 19:45:00 EDT MsgRcvd: 06/05/2025 20:02 EDT Lab Test Result Reference Status Received Comments CORRECTED 06/05/2025 URINALYSIS Final REPORT 20:02 EDT URINALYSIS Specimen New 06/05/2025 R Type Order 20:02 EDT NORMAL: 06/05/2025 Color p.yel Final YELLOW 20:02 EDT SL. NORMAL: 06/05/2025 Clarity CLOUDY Corrected CLEAR 20:02 EDT Abnormal 13 of 16 Narrative Lab Test Result Reference Status Received Comments NORMAL: 06/05/2025 ph 7 Final 5.0-8.0 20:02 EDT 30 NORMAL: 06/05/2025 Protein Final Abnormal NEGATIVE 20:02 EDT NORMAL: 06/05/2025 Glucose NORM Final NORMAL 20:02 EDT NORMAL: 06/05/2025 Ketone NEG Final NEGATIVE 20:02 EDT NORMAL: 06/05/2025 Bilirubin NEG Final NEGATIVE 20:02 EDT 150 NORMAL: 06/05/2025 Blood Final Abnormal NEGATIVE 20:02 EDT NORMAL: 06/05/2025 Urobilinog NORM Final NORMAL 20:02 EDT NORMAL: 06/05/2025 Sp Stem 1.010 Final 1.010-1.030 20:02 EDT NORMAL: 06/05/2025 Nitrite POS Final NEGATIVE 20:02 EDT 500 NORMAL: 06/05/2025 Leukocytes Final Abnormal NEGATIVE 20:02 EDT SEE 06/05/2025 Microscopic Final MICROSCOPIC BELOW 20:02 EDT 06/05/2025 Wbc 16-25 0-5/hpf Final 20:02 EDT 06/05/2025 Rbc 5-10 0-3/hpf Final 20:02 EDT 14 of 16 Narrative Lab Test Result Reference Status Received Comments 06/05/2025 Casts NONE Final 20:02 EDT 06/05/2025 Crystals NONE Final 20:02 EDT 06/05/2025 Amorphous NONE Final 20:02 EDT 06/05/2025 Bacteria 2+ Final 20:02 EDT 06/05/2025 Epi Cells OCC Final 20:02 EDT 06/05/2025 Mucous 1+ Final 20:02 EDT FOLLOWING RESULTS REPORTED IN ERROR 06/05/2025 Yeast NONE Final <NTE.3.1> CA] Clarity 20:02 EDT </NTE.3.1><NTE.3.1>clear</NTE.3.1><NTE.3.1> ;-- *Previously reported in error [id number]. .URIS</NTE.3.1> ERROR DUE 06/05/2025 MISTYPED Corrected TO 20:02 EDT PROGRESS AND PROCEDURES MEDICAL DECISION MAKING: Ordered tests include complete blood count, chemistries, a serum lipase, urinalysis and lactate. The patient has been stable. IV fluids and narcotics have been given and antiemetics have been given. Disposition: Condition: good. Disposition Decision Time: 20:34 06/05/2025. Patient discharged to Home. Discharged in good condition. Discharge decision based on the following: patient's condition is stable; patient is ambulatory; patient's pain is controlled; patient's exam is stable; moderately abnormal test results; stable 15 of 16 Narrative condition on multiple repeat evaluations; social support is adequate; transportation is available; follow-up is available; clinical impression is consistent with outpatient treatment. CLINICAL IMPRESSION Acute urinary tract infection with cystitis and hematuria associated with indwelling catheter. DISCHARGE INSTRUCTIONS Drink plenty of fluids. (Take medications as prescribed. Urine culture is pending. Results in approximately 48 hours. Follow up with your doctor regarding results to make sure that the bacteria is sensitive to the antibiotic we put you on.). Warnings: GENERAL WARNINGS: Return or contact your physician immediately if your condition worsens or changes unexpectedly, if not improving as expected, or if other problems arise. Prescription Medications: cefdinir 300 mg capsule: Take 1 capsule by mouth twice a day for 10 days, dispense 20 capsule. Refills 0. Pharmacy: [facility] - [address] [place] [address]. ondansetron 4 mg disintegrating tablet: Take 1 tablet on tongue every eight hours for nausea/vomiting for 5 days, dispense 15 tablet. Refills 0. Pharmacy: [facility]. - [address] [place] [address]. Understanding of the discharge instructions verbalized by patient. Follow-up with: [facility], Phone: [phone], [address], [address], [place] [address]. Follow up in three days. Call for an appointment. Reason for referral: evaluation and treatment. Summary of care provided to patient. Solis Pace MD, Phone: [phone], [address] [place], [place] [address]. Follow up in three days. Call for an appointment. Reason for referral: evaluation and treatment. Summary of care provided to patient. (Electronically signed by Gonzalez Pineda D.O. 06/05/25 21:33:24 EDT) Generated by [facility] 16 of 16 ED NURSES CLINICAL NOTE Observed: 2024 5:46 PM Status: C Source: [facility] Nurse Narrative Nurse Clinical [place] [address] [place] [address] [phone] 06/05/2025 17:46:00 Patient: TOR BERMAN Sex: Female : 1990 Age: 34y Disposition: Discharge to Home Disposition Decision Time: 20:34 06/05/2025 Departure Time: 21:12 06/05/2025 TRIAGE Arrived by private vehicle. Historian: (patient). Patient has a primary care physician. Primary physician (sanjeev). Triage time: 17:48 06/05/2025. Acuity: LEVEL 4. Chief Complaint: LOW BACK PAIN and LEFT-SIDED FLANK PAIN. ( x1 week. was seen at [facility] for kidney stones on 06/03. pt has a disc that has imaging on it). SEPSIS SCREEN: NEGATIVE. SIRS criteria negative. No possible sources of infection. -- 17:56 06/05/25 EDT Cholo Dempsey R.N. 17:51 06/05/25. BP: 135/94 MAP: 108. HR: 74. RR: 16. O2 saturation: 97% Temperature: 97.8 F. Pain level now 06/12. -- 17:56 06/05/25 EDT Cholo Dempsey R.N. Measurements: 17:54 06/05/25 Wt: 52.2 kg, Ht/Aden: 65.0 in, BMI: 19.14 -- 17:54 06/05/25 EDT Cholo Dempsey R.N. Medications: zofran: 4 mg every 6 hours . -- 17:51 06/05/25 EDT Cholo Dempsey R.N. lexapro: 20 mg once a day . -- 17:51 06/05/25 LILIANAT Cholo Dempsey R.N. Lorazepam Intensol 2 mg/mL oral concentrate: 1 mg three times a day . -- 17:51 06/05/25 LILIANAT Cholo Dempsye R.N. 1 of 4 Nurse Narrative oxycodone 10 mg tablet: 10 mg every 6 hours . -- 17:51 06/05/25 LILIANAT Cholo Dempsey R.N. Bactrim DS 800 mg-160 mg tablet -- 17:51 06/05/25 LILIANAT Cholo Dempsey R.N. Allergies: Penicillins -- 17:50 06/05/25 LILIANAT Cholo Dempsey R.N. Haldol -- 17:50 06/05/25 LILIANAT Cholo Dempsey R.N. Problems: Cancer. (stage 3 cervicle. Currently in remission) -- 17:50 06/05/25 GINNY Dempsey R.N. Renal Failure. (Left kidney only) -- 17:50 06/05/25 LILIANAT Cholo Dempsey R.N. Depression -- 17:50 06/05/25 LILIANAT Cholo Dempsey R.N. Anxiety disorder -- 17:50 06/05/25 LILIANAT Cholo Dempsey R.N. Surgeries: nephrostomy tube -- 17:50 06/05/25 GINNY Dempsey R.N. cervicle biopsy -- 17:50 06/05/25 GINNY Dempsey R.N. History 17:48 06/05/25. SOCIAL HX: Heavy vaping. No alcohol use or drug use. The patient has not traveled outside the [place] Infectious disease exposure: No infectious disease exposure. ABUSE ASSESSMENT: Abuse denied. SELF HARM ASSESSMENT: Self harm assessment was performed. The patient answered no to the question(s) "Do you have thoughts of harming or killing yourself?" and "Do you have a plan for harming or killing yourself?". FALL RISK ASSESSMENT: Fall risk assessment completed. No risk factors identified. -- 17:56 06/05/25 EDT Cholo Dempsey R.N. Interventions 17:48 06/05/25. Advanced care plan discussed with patient. Patient does not have advanced directive. -- 17:56 06/05/25 EDT Cholo Dempsey R.N. 2 of 4 Nurse Narrative PHYSICAL ASSESSMENT 18:15 06/05/25. GENERAL / NEURO / PSYCH: Alert. Oriented X 4. Appears in no acute distress. RESPIRATORY: Respirations not labored. Breath sounds within normal limits. CVS: Normal heart rate and rhythm. Capillary refill less than 2 seconds. GI / : Emesis noted. Abdomen nontender. Pain with urination. ( left flank pain). -- 18:15 06/05/25 EDT Manfred Gramajo R.N. NURSING PROGRESS NOTES 18:11 06/05/25. Site #1 started in the left wrist with a 20g angiocath with aseptic technique; 1 attempt. Saline lock flushed with 10 mL saline. -- 18:16 06/05/25 LILIANAT Manfred Gramajo R.N. 18:31 06/05/25. Patient ID band checked for patient name: patient confirmed. Blood samples drawn from the left hand with 23g by me ; labeled in presence of the patient and sent to lab: rainbow set and arriola top. -- 18:31 06/05/25 EDT Manfred Gramajo R.N. 19:33 06/05/25. IV NS 0.9 % 1000 mL started in bag#1 1000 mL at 999 mL/hr via Site# 1. Allergies verified and confirmed 5 rights. Via dial-a-flow. IV patency established. IV site checked: no pain, redness, or swelling. IV flushed thoroughly pre-medication administration. Information reviewed with patient including reason for taking this medication. Verbalizes understanding. -- 19:34 06/05/25 EDT Luzma Farah R.N. 19:06/05/25. Zofran IVP 4 mg given via Site# 1. Allergies verified and confirmed 5 rights. IV patency established. IV site checked: no pain, redness, or swelling. IV flushed thoroughly pre-medication administration. Information reviewed with patient including reason for taking this medication. Verbalizes understanding. -- 19:34 06/05/25 GINNY Farah R.N. 19:34 06/05/25. HYDROmorphone (Dilaudid) IVP 0.5 mg given via Site# 1. Allergies verified and confirmed 5 rights. IV patency established. IV site checked: no pain, redness, or swelling. IV flushed thoroughly pre-medication administration. Information reviewed with patient including reason for taking this medication. Verbalizes understanding. Medication Wastage: 0.5 mg wasted. -- 19:34 06/05/25 EDT Luzma Farah R.N. 20:41 06/05/25. HYDROmorphone (Dilaudid) IVP 1 mg given via Site# 1. Allergies verified and confirmed 5 rights. IV patency established. IV site checked: no pain, redness, or swelling. IV flushed thoroughly pre-medication administration. Information reviewed with patient including reason for taking this medication. Verbalizes understanding. -- 20:41 06/05/25 EDT Luzma Farah R.N. 20:42 06/05/25. cefTRIAXone (Rocephin) IVPB 1gm/50ml NS 1 g started at 100 mL/hr diluted in sodium chloride IVPB 0.9 % Minibag+ 50 mL via Site# 1. Allergies verified and confirmed 5 rights. Via dial-a-flow. IV patency established. IV site checked: no pain, redness, or swelling. IV flushed thoroughly pre-medication administration. Information reviewed with patient including reason for taking this medication. Verbalizes understanding. -- 20:43 06/05/25 LILIANAT Luzma Farah R.N. 3 of 4 Nurse Narrative 20:52 06/05/25. Two patient identifiers checked. Call light placed in reach. Side rails up x 2. Bed placed in lowest position. Brakes of bed on. -- 21:17 06/05/25 GINNY Farah R.N. DISPOSITION / DISCHARGE 17:51 06/05/25. BP: 135/94 MAP: 108. HR: 74. RR: 16. O2 saturation: 97% Temperature: 97.8 F. Pain level now 8/10. -- 21:14 06/05/25 GINNY Farah R.N.Correction -- 21:14 06/05/25 GINNY Farah R.N. 21:01 06/05/25. BP: 124/72 MAP: 89. HR: 68. RR: 18. O2 saturation: 98% Pain level now 01/10. -- 21:17 06/05/25 EDT Luzma Farah R.N. 21:05 06/05/25. IV NS 0.9 %: Medication Discontinued. bag #1 completed. Total amount infused: 1000 mL. IV patency established. IV site checked: no pain, redness, or swelling. IV flushed thoroughly post-medication administration. -- 21:15 06/05/25 EDT Luzma Farah R.N. 21:10 06/05/25. cefTRIAXone (Rocephin) IVPB 1gm/50ml NS: Medication Discontinued. IV completed. Total amount infused: 50 mL. IV patency established. IV site checked: no pain, redness, or swelling. IV flushed thoroughly post-medication administration. -- 21:15 06/05/25 EDT Luzma Farah R.N. 21:11 06/05/25. Site #1 removed upon discharge. Catheter intact. Pressure dressing applied. -- 21:16 06/05/25 EDT Luzma Farah R.N. Departure time: 21:12 06/05/2025. Condition at departure: improved and stable. No learning barriers present. Discharge instructions provided and reviewed with the patient. Reviewed medication(s). Treatments reviewed. Reviewed referrals. Patient verbalized understanding. Written instructions provided in Palestinian. The patient was discharged home and accompanied by spouse. The patient left ambulatory and via private vehicle. 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 -- 21:14 06/05/25 EDT Luzma Farah R.N. (Electronically signed by Luzma Farah R.N. 06/05/25 21:17:42 EDT) Generated by [employer] 4 of 4 ED MED ADMINISTRATION DETAIL Observed: 0 06/05/2025 5:46 PM Status: C Source: [facility] Counter Top Maker Medication Administration Record [address] [place] [address] [id number] 06/05/2025 Patient: TOR BERMAN Sex: Female : 1990 Age: 34y MEASUREMENTS: Wt: 52.2 kg, Ht/Aden: 65.0 in, BMI: 19.14 ALLERGIES: Haldol, Penicillins Medication Ordered Medication Administration Date/Time IV NS 0.9 % 1000 19:06/05 IV NS 0.9 % 1000 mL started in bag#1 1000 mL at Started mL at 999 mL/hr 999 mL/hr via Site# 1. Allergies verified and confirmed 5 rights. Via 06/05/2025 (NOW x1) dial-a-flow. IV patency established. IV site checked: no pain, Luzma Gagan, R.N. redness, or swelling. IV flushed thoroughly pre-medication Stopped administration. Information reviewed with patient including reason :06/05/2025 for taking this medication. Verbalizes understanding. - :34 Luzma Luzma Gagan, R.N. Gagan, R.N. Scanned :06/05 Medication Discontinued: bag #1 completed. Total amount infused: 1000 mL. IV patency established. IV site checked: no pain, redness, or swelling. IV flushed thoroughly post-medication administration. - 21:15 Luzma Gagan, R.N. Zofran IVP 4 mg 19:06/05 Zofran IVP 4 mg given via Site# 1. Allergies verified Given (NOW x1) and confirmed 5 rights. IV patency established. IV site checked: no 06/05/2025 pain, redness, or swelling. IV flushed thoroughly pre-medication Luzma Gagan, R.N. administration. Information reviewed with patient including reason Scanned for taking this medication. Verbalizes understanding. - 19:34 Luzma Gagan, R.N. 1 of 2 Counter Top Maker Medication Ordered Medication Administration Date/Time HYDROmorphone 19:06/05 HYDROmorphone (Dilaudid) IVP 0.5 mg given via Given (Dilaudid) IVP 0.5 Site# 1. Allergies verified and confirmed 5 rights. IV patency 06/05/2025 mg (NOW x1, HIGH established. IV site checked: no pain, redness, or swelling. IV Luzma Gagan, R.N. ALERT flushed thoroughly pre-medication administration. Information Scanned MEDICATION) reviewed with patient including reason for taking this medication. Verbalizes understanding. Medication Wastage: 0.5 mg wasted. - 19:34 Lzuma Farah, R.N. cefTRIAXone 20:42 08 cefTRIAXone (Rocephin) IVPB 1gm/50ml NS 1 g Started (Rocephin) IVPB started at 100 mL/hr diluted in sodium chloride IVPB 0.9 % 20:42 06/05/2025 1gm/50ml NS 1 g Minibag+ 50 mL via Site# 1. Allergies verified and confirmed 5 Luzmalizbeth Farah, R.N. diluted in sodium rights. Via dial-a-flow. IV patency established. IV site checked: no Stopped chloride IVPB 0.9 % pain, redness, or swelling. IV flushed thoroughly pre- medication 21:06/05/2025 Minibag+ 50 mL at administration. Information reviewed with patient including reason Luzmalizbeth Farah, R.N. 100 mL/hr (NOW x1) for taking this medication. Verbalizes understanding. - 20:43 Luzma Farah, R.N. 21:06/05 Medication Discontinued: IV completed. Total amount infused: 50 mL. IV patency established. IV site checked: no pain, redness, or swelling. IV flushed thoroughly post-medication administration. - 21:15 Luzma Farah R.N. HYDROmorphone 20:41 06/05 HYDROmorphone (Dilaudid) IVP 1 mg given via Site# Given (Dilaudid) IVP 1 mg 1. Allergies verified and confirmed 5 rights. IV patency established. 20:41 06/05/2025 (NOW x1, HIGH IV site checked: no pain, redness, or swelling. IV flushed thoroughly Luzma Farah R.N. ALERT pre-medication administration. Information reviewed with patient Scanned MEDICATION) including reason for taking this medication. Verbalizes understanding. - 20:41 Luzma Farah R.N. 2 of 2 LACTATE Collected: 5 3:30 AM Status: F Source: [facility] TYPE CODE TESTS RESULT OUT OF RANGE REFERENCE UNITS LAB LACTATE(LOINC) LACTATE 0.7 0.4 - 2.0 mmol/L Performed By: #### [id number] ## ## [place] [id number] SERUM QUAL Collected: 06/01/2025 3:30 AM S tatus: F Source: [facility] TYPE CODE TESTS RESULT OUT OF RANGE REFERENCE UNITS LAB SER(LOINC) SER POSITIVE NEGATIVE Result Comment: A FAINT LINE APPEARED ON TEST LINE, BUT TH QUANTITATIVE RESULT WAS ONLY 3 MIU/ML. LAB INTERNAL QC(LOINC) INTERNAL QC PASS LAB EXTERNAL QC DONE?(LOINC) EXTERNAL QC DONE? YES Performed By: #### [id number] ## ## [place] [id number] TROPONIN Collected: 3:30 AM Status: F Source: [facility] TYPE CODE TESTS RESULT OUT OF RANGE REFERENCE UNITS LAB HS TROPONIN(LOINC) HS TROPONIN <4.0 0.0 - 51.4 pg/mL Performed By: #### [id number] ## ## [place] [id number] CBC + DIFF Collected: 3:30 AM Status: F Source: [facility] TYPE CODE TESTS RESULT OUT OF RANGE REFERENCE UNITS LAB CBC + DIFF(LOINC) CBC + DIFF Result Comment: CBC-COMPLETE BLOOD COUNT LAB WBC(LOINC) WBC 9.0 4.5 - 10.8 x 10EE3/UL LAB RBC(LOINC) RBC 3.84 Low 4.10 - 5.30 x 10EE6/UL LAB HEMOGLOBIN(ISAIAH NC) HEMOGLOBIN 12.7 12.0 - 16.0 g/dl LAB HEMATOCRIT(ISAIAH NC) HEMATOCRIT 37.2 34.0 - 46.0 % LAB MCV(LOINC) MCV 97 80 - 99 fl LAB MCH(LOINC) MCH 33 27 - 33 pg LAB MCHC(LOINC) MCHC 34 32 - 36 X10 3 LAB RDW/CV(LOINC) RDW/CV 14.1 12.0 - 15.6 % LAB PLATELET(LOINC ) PLATELET 388 150 - 450 x10EE3/UL LAB MPV(LOINC) MPV 7.3 6.6 - 10.5 fl Result Comment: AUTOMATED DI FFERENTIAL LAB NEUT %(LOINC) NEUT % 65.9 46.0 - 76.0 % LAB LYMPH %(LOINC) LYMPH % 21.8 20.0 - 45.0 % LAB MONOS %(LOINC) MONOS % 9.6 0.0 - 10.0 % LAB EO %(LOINC) EO % 2.3 0.0 - 7.0 % LAB BASO %(LOINC) BASO % 0.4 0.0 - 2.0 % LAB Lymph #(LOINC) Lymph # 1.96 0.80 - 2.80 x10EE 3/UL LAB Neut #(LOINC) Neut # 5.92 1.50 - 7.10 x10EE3 /UL LAB Green #(LOINC) Green # 0.86 0.20 - 1.00 x10EE3 /UL LAB EO #(LOINC) EO # 0.20 0.00 - 0.50 x10EE3/U L LAB Baso #(LOINC) Baso # 0.03 0.00 - 0.10 x10EE3 /UL LAB MANUAL DIFF(LOINC) MANUAL DIFF N/A LAB MORPHOLOGY(ISAIAH NC) MORPHOLOGY N/A Performed By: #### [id number] ## ## [place] [id number] PREG SERUM QUANT Collected: 06/01/2025 3:30 AM Statu s: F Source: [facility] TYPE CODE TESTS RESULT OUT OF RANGE REFERENCE UNITS LAB HCG QUANTITATIVE(LO INC) HCG QUANTITATIVE 3 Result Comment: Reference Ra nge: Male: <5 Female: Non: <5 1 - [...] 3000-50,000 3RD TRIMESTER 1000-50,000 Performed By: #### [id number] ## ## [place] [id number] CMP WITH EGFR Collected: 3:30 AM Status: F Source: [facility] TYPE CODE TESTS RESULT OUT OF RANGE REFERENCE UNITS LAB CMP with eGFR(LOINC) CMP with eGFR Result Comment: COMPREHENSIV E METABOLIC PANEL LAB SODIUM(LOINC) SODIUM 141 136 - 145 mmol/l LAB POTASSIUM(LOIN C) POTASSIUM 3.9 3.5 - 5.1 mmol/L LAB CHLORIDE(LOINC ) CHLORIDE 102 98 - 107 mmol/L LAB CO2(LOINC) CO2 30.0 21.0 - 32.0 mmol/L LAB GLUCOSE(LOINC) GLUCOSE 91 74 - 106 mg/dl LAB BUN(LOINC) BUN 13 7 - 18 mg/dl LAB CREATININE(ISAIAH NC) CREATININE 1.05 High 0.55 - 1.02 mg/dl LAB AST/SGOT(LOINC ) AST/SGOT 13 13 - 39 U/L LAB ALK PHOS(LOINC) ALK PHOS 68 46 - 116 U/L LAB CALCIUM(LOINC) CALCIUM 9.2 8.5 - 10.1 mg/dl LAB TOTAL PROTEIN(LOINC) TOTAL PROTEIN 6.9 6.4 - 8.2 g/dl LAB ALBUMIN(LOINC) ALBUMIN 3.7 3.4 - 5.0 g/dL LAB GLOBULIN(LOINC ) GLOBULIN 3.2 1.5 - 3.8 G/DL LAB A/G RATIO(LOINC) A/G RATIO 1.2 0.9 - 1.6 LAB TOTAL BILI(LOINC) TOTAL BILI 0.2 0.2 - 1.0 mg/dl LAB B/C RATIO(LOINC) B/C RATIO 12 0 - 30 ratio LAB ALT/SGPT(LOINC ) ALT/SGPT 22 16 - 63 U/L LAB ANION GAP(LOINC) ANION GAP 13 10 - 20 mmol/L LAB AGE(LOINC) AGE 34 years LAB eGFR(LOINC) eGFR 59 Low 60 - 999 ML/MINUT E LAB eGFR(AA)(LOINC ) eGFR(AA) >60 60 - 999 ML/MINUT E Result Comment: ACCORDING TO THE NATIONAL KIDNEY DISEASE EDUCATION PROGRAM(NKDE), A NORMAL eGFR IS A VALUE GREATER THAN OR EQUAL TO 60 ML/MIN/1.73 SQ METERS. CHRONIC KIDNEY DISEASE: <60mL/MIN/1.73 SQ METERS KIDNEY FAILURE: <15mL/MIN/1.73 SQ METERS THIS TEST SHOULD ONLY BE USED FOR PATIENTS 18 YEARS OF AGE AND OLDER. Performed By: #### [id number] ## ## [facility],[address] [place] [address],[facility] [id number] ED PHYSICIAN CLINICAL REPORT Observed: 0 06/01/2025 12:58 AM Status: C Source: [facility] Narrative Physician Clinical Narrative [address] [place] [address] [id number] 06/01/2025 00:58:00 Patient: TOR BERMAN Sex: Female : 1990 Age: 34y Disposition: Discharge to Home Disposition Decision Time: 05:06/01/2025 Departure Time: 05:06/01/2025 Measurements Wt: 52.2 kg, Ht/Aden: 65.0 in, BMI: 19.14 Initial Vital Sign Measured Time BP MAP HR RR O2Sat ETCO2 Temp Pain GCS RTS 02:28 06/01/2025 168/107 129 69 Time Seen: 02:40 06/01/2025. Arrived- By private vehicle. Historian- patient. HISTORY OF PRESENT ILLNESS Chief Complaint: VOMITING. The patient has had nausea and vomiting. This started last night and is still present. The illness is described as mild. Similar symptoms previously. Patient has had similar symptoms many times. Recent medical care: The patient was seen recently at this facility. REVIEW OF SYSTEMS Narrative SKIN: No skin rash or jaundice. CONSTITUTIONAL: No fever or muscle aches. THROAT: No sore throat. RESPIRATORY: No cough or difficulty breathing. CVS: No chest pain. : No difficulty with urination, dark urine or excessive urination. NEUROLOGICAL: No headache, dizziness or fainting episodes. MUSCULOSKELETAL: No back pain. PAST HISTORY See nurses notes. Anxiety disorder Cancer: (stage 3 cervicle. Currently in remission) Depression Renal Failure: (Left kidney only) Surgeries: cervicle biopsy nephrostomy tube Medications: lexapro: 20 mg once a day . Lorazepam Intensol 2 mg/mL oral concentrate: 1 mg three times a day . oxycodone 10 mg tablet: 10 mg every 6 hours . zofran: 4 mg every 6 hours . Allergies: Haldol Penicillins SOCIAL HISTORY Never smoker. Drug use: marijuana. No alcohol use. ADDITIONAL NOTES The nursing notes have been reviewed. PHYSICAL EXAM 2 of 11 Narrative Appearance: Alert. Oriented X3. No acute distress. Eyes: Pupils equal, round and reactive to light. ENT: Nose normal. Dry mucous membranes present. Pharynx normal. Neck: Normal inspection. Neck supple. CVS: Normal heart rate and rhythm. Heart sounds normal. Pulses normal. Respiratory: No respiratory distress. Painless inspiration. Breath sounds normal. Abdomen: Soft and nontender. Bowel sounds normal. No mass. Skin: Skin warm and dry. No rash. Extremities: Extremities exhibit normal ROM. No lower extremity edema. Neuro: Oriented X 3. No motor deficit. No sensory deficit. LABS, X-RAYS, AND EKG 12-LEAD EKG: EKG time: 04:25 06/01/2025. Normal sinus rhythm. Rate: 62. Normal P waves. Normal QRS complex. Normal ST and T waves. The study has been interpreted contemporaneously by me. The EKG appears to be a good tracing. Interpretation time: 04:26 06/01/2025. Laboratory Tests: CBC + DIFF Final BINA: 06/01/2025 03:30:00 EDT MsgRcvd: 06/01/2025 03:59 EDT Lab Test Result Reference Status Received Comments 06/01/2025 03:59 CBC-COMPLETE CBC + DIFF Final EDT BLOOD COUNT 06/01/2025 03:59 WBC 9.0 x 10/UL 4.5 - 10.8 Final EDT 3.84 x 10/UL 06/01/2025 03:59 RBC 4.10 - 5.30 Final Below low normal EDT 06/01/2025 03:59 HEMOGLOBIN 12.7 g/dl 12.0 - 16.0 Final EDT 06/01/2025 03:59 HEMATOCRIT 37.2 % 34.0 - 46.0 Final EDT 3 of 11 Narrative Lab Test Result Reference Status Received Comments 06/01/2025 03:59 MCV 97 fl 80 - 99 Final EDT 06/01/2025 03:59 MCH 33 pg 27 - 33 Final EDT 06/01/2025 03:59 MCHC 34 X10 3 32 - 36 Final EDT 06/01/2025 03:59 RDW/CV 14.1 % 12.0 - 15.6 Final EDT 06/01/2025 03:59 PLATELET 388 x10/UL 150 - 450 Final EDT 06/01/2025 03:59 AUTOMATED MPV 7.3 fl 6.6 - 10.5 Final EDT DIFFERENTIAL 06/01/2025 03:59 NEUT % 65.9 % 46.0 - 76.0 Final EDT 06/01/2025 03:59 LYMPH % 21.8 % 20.0 - 45.0 Final EDT 06/01/2025 03:59 MONOS % 9.6 % 0.0 - 10.0 Final EDT 06/01/2025 03:59 EO % 2.3 % 0.0 - 7.0 Final EDT 06/01/2025 03:59 BASO % 0.4 % 0.0 - 2.0 Final EDT 06/01/2025 03:59 Lymph # 1.96 x10/UL 0.80 - 2.80 Final EDT 06/01/2025 03:59 Neut # 5.92 x10/UL 1.50 - 7.10 Final EDT 4 of 11 Narrative Lab Test Result Reference Status Received Comments 06/01/2025 03:59 Green # 0.86 x10/UL 0.20 - 1.00 Final EDT 06/01/2025 03:59 EO # 0.20 x10/UL 0.00 - 0.50 Final EDT 06/01/2025 03:59 Baso # 0.03 x10/UL 0.00 - 0.10 Final EDT 06/01/2025 03:59 MANUAL DIFF N/A New Order EDT 06/01/2025 03:59 MORPHOLOGY N/A New Order EDT CMP with eGFR Final BINA: 06/01/2025 03:30:00 EDT MsgRcvd: 06/01/2025 04:26 EDT Lab Test Result Reference Status Received Comments COMPREHENSIVE 06/01/2025 CMP with eGFR Final METABOLIC 04:26 EDT PANEL 06/01/2025 SODIUM 141 mmol/l 136 - 145 Final 04:26 EDT 06/01/2025 POTASSIUM 3.9 mmol/L 3.5 - 5.1 Final 04:26 EDT 06/01/2025 CHLORIDE 102 mmol/L 98 - 107 Final 04:26 EDT 06/01/2025 CO2 30.0 mmol/L 21.0 - 32.0 Final 04:26 EDT 06/01/2025 GLUCOSE 91 mg/dl 74 - 106 Final 04:26 EDT 5 of 11 Narrative Lab Test Result Reference Status Received Comments 06/01/2025 BUN 13 mg/dl 7 - 18 Final 04: EDT 1.05 mg/dl 06/01/2025 CREATININE Above high 0.55 - 1.02 Final 04:26 EDT normal 06/01/2025 AST/SGOT 13 U/L 13 - 39 Final 04:26 EDT 06/01/2025 ALK PHOS 68 U/L 46 - 116 Final 04: EDT 06/01/2025 CALCIUM 9.2 mg/dl 8.5 - 10.1 Final 04: EDT TOTAL 06/01/2025 6.9 g/dl 6.4 - 8.2 Final PROTEIN 04: EDT 06/01/2025 ALBUMIN 3.7 g/dL 3.4 - 5.0 Final 04: EDT 06/01/2025 GLOBULIN 3.2 G/DL 1.5 - 3.8 Final 04: EDT 06/01/2025 A/G RATIO 1.2 0.9 - 1.6 Final 04: EDT 06/01/2025 TOTAL BILI 0.2 mg/dl 0.2 - 1.0 Final 04: EDT 06/01/2025 B/C RATIO 12 ratio 0 - 30 Final 04: EDT 06/01/2025 ALT/SGPT 22 U/L 16 - 63 Final 04: EDT 06/01/2025 ANION GAP 13 mmol/L 10 - 20 Final 04:26 EDT 6 of 11 Narrative Lab Test Result Reference Status Received Comments 06/01/2025 AGE 34 years Final 04: EDT 59 ML/MINUTE 06/01/2025 eGFR 60 - 999 Final Below low normal 04:26 EDT ACCORDING TO THE NATIONAL KIDNEY DISEASE EDUCATION PROGRAM(NKDE), A NORMAL eGFR IS A VALUE GREATER THAN OR EQUAL TO 60 ML/MIN/1.73 SQ METERS. 06/01/2025 CHRONIC KIDNEY eGFR(AA) >60 ML/MINUTE 60 - 999 Final 04:26 EDT DISEASE: <60mL/MIN/1.73 SQ METERS KIDNEY FAILURE: <15mL/MIN/1.73 SQ METERS THIS TEST SHOULD ONLY BE USED FOR PATIENTS 18 YEARS OF AGE AND OLDER. LACTATE Final BINA: 06/01/2025 03:30:00 EDT MsgRcvd: 06/01/2025 04:27 EDT 7 of 11 Narrative Lab Test Result Reference Status Received Comments 06/01/2025 04:27 LACTATE 0.7 mmol/L 0.4 - 2.0 Final EDT PREG SERUM QUANT Final BINA: 06/01/2025 03:30:00 EDT MsgRcvd: 06/01/2025 04:52 EDT Lab Test Result Reference Status Received Comments 8 of 11 Narrative Lab Test Result Reference Status Received Comments Reference Range: Male: <5 Female: Non: <5 1 - 7 days : 5 - 50 1 - 2 weeks: 50 - 500 2 - 3 weeks: 100 - 5000 3 - 4 weeks: 500 - 10,000 HCG 06/01/2025 04:52 4 - 5 weeks: 3 Final QUANTITATIVE EDT 1000 - 50,000 5 - 6 weeks: 10,000 - 100,000 6 - 8 weeks: 15,000 - 200,000 2 - 3 months: 10,000 - 100,000 2ND TRIMESTER 3000-50,000 3RD TRIMESTER 1000-50,000 TROPONIN Final BINA: 06/01/2025 03:30:00 EDT MsgRcvd: 06/01/2025 04:30 EDT Lab Test Result Reference Status Received Comments 9 of 11 Narrative Lab Test Result Reference Status Received Comments 06/01/2025 04:30 HS TROPONIN <4.0 pg/mL 0.0 - 51.4 Final EDT SERUM QUAL Final BINA: 06/01/2025 03:30:00 EDT MsgRcvd: 06/01/2025 06:03 EDT Lab Test Result Reference Status Received Comments A FAINT LINE APPEARED ON TEST LINE, BUT 06/01/2025 06:03 POSITIVE NEGATIVE Final TH SER EDT QUANTITATIVE RESULT WAS ONLY 3 MIU/ML. 06/01/2025 06:03 INTERNAL QC PASS Final EDT EXTERNAL QC 06/01/2025 06:03 YES Final DONE? EDT PROGRESS AND PROCEDURES MEDICAL DECISION MAKING: Ordered tests include complete blood count, chemistries, liver function tests, a serum lipase, urinalysis and lactate. The patient has been stable. IV fluids and non-narcotics have been given and antiemetics have been given. Disposition: Condition: good. Disposition Decision Time: 05:22 06/01/2025. Patient discharged to Home. Discharged in good condition. Discharge decision based on the following: patient's condition is stable; patient is ambulatory; patient's pain is controlled; patient's exam is stable; no seriously abnormal test results; stable condition on multiple repeat evaluations; social support is adequate; transportation is available; follow-up is available; clinical impression is consistent with outpatient treatment. CLINICAL IMPRESSION of 11 Narrative Vomiting with nausea. DISCHARGE INSTRUCTIONS Warnings: GENERAL WARNINGS: Return or contact your physician immediately if your condition worsens or changes unexpectedly, if not improving as expected, or if other problems arise. Prescription Medications: ondansetron 4 mg disintegrating tablet: Take 1 tablet on tongue every eight hours for nausea/vomiting for 5 days, dispense 15 tablet. Refills 0. Pharmacy: [facility]. [id number] [place] [id number]. Understanding of the discharge instructions verbalized by patient. Follow-up with: [facility], Phone: [phone], [address] [place] [address], [id number], [place] [address]. Follow up in three days. Call for an appointment. Reason for referral: evaluation and treatment. Summary of care provided to patient. (Electronically signed by Gonzalez Pineda D.O. 06/01/25 07:36:11 EDT) Generated by [facility] ED SUPER BILL Observed: 06/01/2025 12:58 AM Status: C Source: [address] [place] [address] [phone] 06/01/2025 Patient: TOR BERMAN Sex: Female : 1990 Age: 34y Item Facility Professional Category Description Code Code Quantity Fee Total Drugs Normal Saline 836427 1 $0.00 $0.00 1000cc ([id number]) Nurse/E/M EMERGENCY [id number] 1 $0.00 $0.00 DEPARTMENT VISIT HIGH/URGENT SEVERITY (23655-01) Nurse/IV/IM/Infusions Hydration 220327 1 $0.00 $0.00 additional hour (24617) Nurse/IV/IM/Infusions IVP additional 663301 2 $0.00 $0.00 push (40053) Nurse/IV/IM/Infusions IVP initial 120593 1 $0.00 $0.00 (16650) Nurse/IV/IM/Infusions IVP same med [id number] 1 $0.00 $0.00 (31 min apart) (36409) Grand Total $0.00 1 of 2 Superbill Providers Gonzalez Pineda D.O. Chief Complaint VOMITING. Principal Diagnosis Vomiting with nausea. ICD-10 Codes R11.2: Nausea with vomiting, unspecified 2 of 2 ED ORDER SHEET ([facility] ONLY) Observed: 12:58 AM Status: C Source: [facility] Order Sheet Order Sheet [address] [place], [place] [address] [id number] 06/01/2025 Patient: TOR BERMAN Sex: Female : 1990 Age: 34y MEASUREMENTS: Wt: 52.2 kg, Ht/Aden: 65.0 in, BMI: 19.14 ALLERGIES: Haldol, Penicillins MEDICATION/IV/DRIP/FLUID ORDERS Order Description Priority Entered Acknowledged Completed IV NS 0.9 %1000 mL at 999 02:46 06/01/2025 03:51 mL/hr (NOW x1) Gonzalez Pineda D.O. 06/01/2025 Jose Vargas R.N. Ondansetron IVP4 mg (NOW x1) 02:46 06/01/2025 03:51 Gonzalez Pineda D.O. 06/01/2025 Jamison CabelloNApril KetorOLAC (Toradol) IVP15 mg 03:12 06/01/2025 03:51 (NOW x1) Gonzalez Pineda D.O. 06/01/2025 Jose Vargas RAprilNApril KetorOLAC (Toradol) IVP15 mg 05:06 06/01/2025 05:11 (NOW x1) Luzma Farah R.N. 06/01/2025 Verbal Order, Auth by: Yohana Melvin D.O. Read back and verified Reason for ordering with alerts: Clinical consideration given --05:06 06/01/2025 Luzma Farah R.N. 1 of 3 Order Sheet Zofran IVP4 mg (NOW x1) 05:06 06/01/2025 05:10 Luzma Farah R.N. 06/01/2025 Verbal Order, Auth by: Yohana Melvin D.O. Read back and verified Reason for ordering with alerts: Clinical consideration given --05:06 06/01/2025 Luzma Farah R.N. LAB ORDERS Order Description Priority Entered Acknowledged Collected Completed CBC w Diff Stat Stat 02:46 06/01/2025 03:41 06/01/2025 03:41 06/01/2025 Kendra Stanford R.N. Alex Mast, R.NApril CMP Stat Stat 02:46 06/01/2025 03:41 06/01/2025 03:41 06/01/2025 Kendra Stanford R.N. Alex Mast, R.NApril Troponin-I Stat Stat 02:46 06/01/2025 03:41 06/01/2025 03:41 06/01/2025 Kendra Stanford R.N. Alex Mast, R.NApril EKG - ED Stat Stat 02:46 06/01/2025 03:41 06/01/2025 04:30 06/01/2025 Kendra Stanford R.N. Seth Lapp, R.N. Lactate, Serum Stat Stat 02:46 06/01/2025 03:41 06/01/2025 03:41 06/01/2025 Kendra Stanford R.N. Alex Mast, R.NApril Urinalysis Stat Stat 02:46 06/01/2025 Cancelled: Unable to Collect Gonzalez Pineda D.O. 05:20 EDT Luzma Farah R.N. HCG, Qual Serum Stat Stat 03:12 06/01/2025 03:41 06/01/2025 03:41 06/01/2025 Kendra Stanford R.N. Alex Mast, R.NApril 2 of 3 Order Sheet HCG, Quant Serum Stat Stat 04:27 06/01/2025 04:30 06/01/2025 Kendra Stanford R.N. DIAGNOSTIC STUDY ORDERS Order Description Priority Entered Acknowledged Completed STAFF ORDERS Order Description Priority Entered Acknowledged Collected Completed Vital Signs every 30 02:46 06/01/2025 03:41 06/01/2025 03:41 06/01/2025 minutes Kendra Stanford R.N. Alex Mast, R.N. On Site Construction Superintendent 02:46 06/01/2025 03:41 06/01/2025 03:41 06/01/2025 Kendra Stanford R.N. Alex Mast, R.N. Oxygen titrate to 92% 02:46 06/01/2025 03:41 06/01/2025 03:41 06/01/2025 Kendra Stanford R.N. Alex Mast, R.N. [Electronically signed by Gonzalez Pineda D.O. (06/01/2025 07:36 EDT)] 3 of 3 ED NURSES CLINICAL NOTE Observed: 2024 12:58 AM Status: C Source: [facility] Nurse Narrative Nurse Clinical Narrative [address] [address] [phone] 06/01/2025 00:58:00 Patient: TOR BERMAN Sex: Female : 1990 Age: 34y Disposition: Discharge to Home Disposition Decision Time: 05:22 06/01/2025 Departure Time: 05:27 06/01/2025 TRIAGE Arrived by private vehicle. Historian: (patient). Primary physician (Dr. Pace). ( Pt c/o bilateral flank pain with nausea and vomiting.). Triage time: 02:55 06/01/2025. Acuity: LEVEL 3. Chief Complaint: ABDOMINAL PAIN, NAUSEA and VOMITING. Onset. (7 hours). -- 03:00 06/01/25 EDT Jose Vargas R.N. 03:00 06/01/25. BP: 154/101 MAP: 119. HR: 58. RR: 16. O2 saturation: 98% Temperature: 98.2 F. Pain level now 9/10. -- 03:00 06/01/25 EDT Jamison CabelloNApril 03:06/01/25. SEPSIS SCREEN: NEGATIVE. SIRS criteria negative. -- 03:06/01/25 EDT Jose Vargas R.N. Measurements: 02:06/01/25 Wt: 52.2 kg, Ht/Aden: 65.0 in, BMI: 19.14 -- 02:06/01/25 EDT Jamison CabelloNApril Medications: zofran: 4 mg every 6 hours . -- 02:06/01/25 EDT Jose Vargas R.N. lexapro: 20 mg once a day . -- 02:06/01/25 EDT Jamison CabelloNApril Lorazepam Intensol 2 mg/mL oral concentrate: 1 mg three times a day . -- 02:06/01/25 EDT Jose Vargas R.N. 1 of 4 Nurse Narrative oxycodone 10 mg tablet: 10 mg every 6 hours . -- 02:06/01/25 EDT Jamison CabelloNApril 02:06/01/25. Preferred Pharmacy: ([facility]). -- 03:00 06/01/25 EDT Jose Vargas R.N. Allergies: Penicillins -- 02:06/01/25 EDT Jose Vargas R.N. Haldol -- 02:06/01/25 EDT Jose Vagras R.N. Problems: Cancer. (stage 3 cervicle. Currently in remission) -- 02:06/01/25 EDT Jose Vargas R.N. Renal Failure. (Left kidney only) -- 02:06/01/25 EDT Jose Vargas R.N. Depression -- 02:06/01/25 EDT Jose Vargas R.N. Anxiety disorder -- 02:06/01/25 EDT Jamison CabelloN. Surgeries: nephrostomy tube -- 02:06/01/25 EDT Jose Vargas R.N. cervicle biopsy -- 02:06/01/25 EDT Jose Mast, R.N. History 02:55 06/01/25. SOCIAL HX: Never smoker. Drug use: marijuana. No alcohol use. The patient has not traveled outside the [place] Infectious disease exposure: No infectious disease exposure. ABUSE ASSESSMENT: The patient answered "yes" to the question(s) "Do you feel safe in your home?" and "no" to the question(s) "Are you afraid to go home?". SELF HARM ASSESSMENT: Self harm assessment was performed. The patient answered no to the question(s) "Have you recently felt down, depressed, or hopeless?" and "Do you have thoughts of harming or killing yourself?". FALL RISK ASSESSMENT: Fall risk assessment completed. No risk factors identified. -- 03:00 06/01/25 EDT Jose Vargas R.N. 2 of 4 Nurse Narrative PHYSICAL ASSESSMENT 04:32 06/01/25. Ambulatory to room. GENERAL / NEURO / PSYCH: Alert. Oriented X 4. Appears in no acute distress. ( ABD pain, NVD). -- 04:32 06/01/25 EDT Luzma Farah R.N. NURSING PROGRESS NOTES 03:49 06/01/25. Ondansetron IVP 4 mg given via Site# 1. Allergies verified and confirmed 5 rights. IV patency established. IV site checked: no pain, redness, or swelling. IV flushed thoroughly pre-medication administration. -- 03:51 06/01/25 EDT Jose Vargas R.N. 03:50 06/01/25. KetorOLAC (Toradol) IVP 15 mg given via Site# 1. Allergies verified and confirmed 5 rights. IV patency established. IV site checked: no pain, redness, or swelling. IV flushed thoroughly pre-medication administration. Information reviewed with patient. Medication Wastage: 15 mg wasted. -- 03:51 06/01/25 EDT Jose Vargas R.N. 03:50 06/01/25. Site #1 started in the right wrist with a 20g angiocath; 1 attempt. Blood drawn: rainbow set and arriola tube(s). Sent to the lab. Saline lock flushed with 10 mL saline. -- 03:50 06/01/25 EDT Jose Vargas R.N. 03:51 06/01/25. IV NS 0.9 % 1000 mL started in bag#1 1000 mL at 999 mL/hr via Site# 1. Via IV pump. IV patency established. IV site checked: no pain, redness, or swelling. IV flushed thoroughly pre-medication administration. -- 03:51 06/01/25 EDT Jose Vargas R.N. 04:06/01/25. 12-LEAD EKG: EKG time: (04:06/01/2025). 12-Lead EKG was performed by me and shown to the ED physician. -- 04:06/01/25 EDT Arianna Stearns 04:06/01/25. Two patient identifiers checked. Call light placed in reach. Side rails up x 2. Bed placed in lowest position. Brakes of bed on. -- 04:06/01/25 EDT Luzma Farah R.N. 05:06/01/25. IV NS 0.9 %: Medication Discontinued. bag #1 completed. Total amount infused: 1000 mL. IV patency established. IV site checked: no pain, redness, or swelling. IV flushed thoroughly post-medication administration. -- 05:26 06/01/25 EDT Luzma Farah R.N. 05:06/01/25. Zofran IVP 4 mg given via Site# 1. Allergies verified and confirmed 5 rights. IV patency established. IV site checked: no pain, redness, or swelling. IV flushed thoroughly pre-medication administration. Information reviewed with patient including reason for taking this medication. Verbalizes understanding. -- 05:06/01/25 EDT Jamison MelvinNApril 05:06/01/25. KetorOLAC (Toradol) IVP 15 mg given via Site# 1. Allergies verified and confirmed 5 rights. IV patency established. IV site checked: no pain, redness, or swelling. IV flushed thoroughly pre-medication administration. Information reviewed with patient including reason for taking this medication. Verbalizes understanding. Medication Wastage: 15 mg wasted. -- 05:06/01/25 EDT Luzma Farah R.N. 3 of 4 Nurse Narrative DISPOSITION / DISCHARGE 04:13 06/01/25. BP: 164/108 MAP: 125 mmHg. HR: 63 bpm. -- 05:52 06/01/25 EDT Luzma Farah R.N. 04:15 06/01/25. HR: 63 bpm. O2 saturation: 97%. -- 05:52 06/01/25 EDT Luzma Farah R.N. Departure time: 05:27 06/01/2025. Condition at departure: stable. ( pt self removed IV prior to discharge paperwork being given. walked out prior to discharge education). The patient left prior to discharge education being provided. The patient was discharged home. The patient left ambulatory and via private vehicle. Patient driving. -- 05:58 06/01/25 EDT Luzma Farah R.N. 05:58 06/01/25. Site #1 removed upon discharge. Catheter intact. Pressure dressing applied. (By pt, this rn inspected catheter.) -- 05:58 06/01/25 EDT Luzma Farah R.N. (Electronically signed by Luzma Farah R.N. 06/01/25 05:59:19 EDT) Generated by [facility] 4 of 4 ED VISIT SUMMARY Observed: 06/01/2025 12:58 AM Status: C Source: [facility] Visit Overview Visit Overview [address] [place] [address] [phone] 06/01/2025 Patient: TOR BERMAN Sex: Female : 1990 Age: 34y 06/01/2025 08:19 AM EDT ED Arrival:00:58 06/01/2025 EDT Status: Recent Travel:no Language:eng Adv Directive: Isolation Status: Ethnicity:N Fall Risk:no risk Infectious Disease Exposure:no Measurements:5'5" / 165.1 Self-Harm Status:risk Sepsis Screen:negative cm 115.0 lb / 52.2 kg Chief Complaint:ABDOMINAL PAIN, NAUSEA, VOMITING, (7 hours), (Dr. Pace), and (Pt c/o bilateral flank pain with nausea and vomiting.) ALLERGIES Haldol Penicillins HOME MEDICATIONS lexapro: 20 mg once a day . Lorazepam Intensol 2 mg/mL oral concentrate: 1 mg three times a day . oxycodone 10 mg tablet: 10 mg every 6 hours . 1 of 3 Visit Overview zofran: 4 mg every 6 hours . PAST MEDICAL HISTORY / PROBLEMS Anxiety disorder Cancer. (stage 3 cervicle. Currently in remission) Depression Renal Failure. (Left kidney only) See nurses notes PAST SURGICAL HISTORY nephrostomy tube SOCIAL HISTORY Smoking status: No Alcohol use: No Drug use: Yes ED COURSE MEDICATIONS GIVEN IN EMERGENCY DEPARTMENT 03:49 06/01/25 Ondansetron IVP 4 mg 03:50 06/01/25 KetorOLAC (Toradol) IVP 15 mg 03:51 06/01/25 IV NS 0.9 % 1000 mL 999 mL/hr 05:10 06/01/25 Zofran IVP 4 mg 05:11 06/01/25 KetorOLAC (Toradol) IVP 15 mg IV SITE INFORMATION INTAKE OUTPUT REASSESMENT (most recent) 04:32 06/01/25. Ambulatory to room. GENERAL / NEURO / PSYCH: Alert. Oriented X 4. Appears in no acute distress. ( ABD pain, NVD). 2 of 3 Visit Overview VITAL SIGNS First Vitals Last Vitals Temp 02:28 06/01/25 Temp 04:15 06/01/25 BP 02:06/01/25 168/107 BP 04:06/01/25 HR 02:06/01/25 69 HR 04:06/01/25 63 RR 02:06/01/25 RR 04:06/01/25 O2 Sat 02:06/01/25 O2 Sat 04:06/01/25 97% Pain 02:06/01/25 Pain 04:06/01/25 ETCO2 02:06/01/25 ETCO2 04:06/01/25 GCS 02:06/01/25 GCS 04:06/01/25 RTS 02:06/01/25 RTS 04:06/01/25 PROCEDURES NURSING INTERVENTIONS LABS / STUDIES LABS / STUDIES ORDERED CBC w Diff CMP EKG - ED HCG, Qual Serum HCG, Quant Serum Lactate, Serum Troponin-I CLINICAL IMPRESSION VOMITING WITH NAUSEA 3 of 3 ED VITALS FLOW SHEET Observed: 5 12:58 AM Status: C Source: [facility] Vitals Vital Sign Flow Sheet [place] [address] [place] [address] [phone] 06/01/2025 [id number] Sex: Female : 1990 Age: 34y Measurements Wt: 52.2 kg, Ht/Aden: 65.0 in, BMI: 19.14 Measured Time BP MAP HR RR O2Sat ETCO2 Temp Pain GCS RTS 04:15 06/01/2025 63 97% 04:13 06/01/2025 164/108 125 63 04:10 06/01/2025 63 96% 04:05 06/01/2025 64 98% 04:00 06/01/2025 63 97% 03:58 06/01/2025 164/108 131 62 03:55 06/01/2025 62 98% 03:50 06/01/2025 60 97% 03:45 06/01/2025 65 98% 03:43 06/01/2025 183/116 138 62 03:40 06/01/2025 61 99% 03:35 06/01/2025 63 99% 03:30 06/01/2025 61 99% 03:28 06/01/2025 140/97 105 61 03:25 06/01/2025 63 99% 1 of 2 Vitals Measured Time BP MAP HR RR O2Sat ETCO2 Temp Pain GCS RTS 03:20 06/01/2025 66 96% 03:15 06/01/2025 59 97% 03:13 06/01/2025 141/94 115 58 03:10 06/01/2025 57 99% 03:05 06/01/2025 78 97% 03:00 06/01/2025 154/101 119 58 16 98% 98.2 F 9 03:00 06/01/2025 65 97% 02:58 06/01/2025 154/101 127 63 02:55 06/01/2025 65 98% 02:50 06/01/2025 64 98% 02:45 06/01/2025 66 97% 02:43 06/01/2025 163/106 127 68 02:40 06/01/2025 88 99% 02:35 06/01/2025 67 96% 02:30 06/01/2025 67 99% 02:28 06/01/2025 168/107 129 69 2 of 2 ED MED ADMINISTRATION DETAIL Observed: 0 06/01/2025 12:58 AM Status: C Source: [facility] Counter Top Maker Medication Administration Record [place] [id number] [place] [address] [phone] 06/01/2025 Patient: TOR BERMAN Sex: Female : 1990 Age: 34y MEASUREMENTS: Wt: 52.2 kg, Ht/Aden: 65.0 in, BMI: 19.14 ALLERGIES: Haldol, Penicillins Medication Ordered Medication Administration Date/Time IV NS 0.9 % 1000 03:51 06/01 IV NS 0.9 % 1000 mL started in bag#1 1000 mL at Started mL at 999 mL/hr 999 mL/hr via Site# 1. Via IV pump. IV patency established. IV site 03:51 06/01/2025 (NOW x1) checked: no pain, redness, or swelling. IV flushed thoroughly Jose Mast, R.N. pre-medication administration. - 03:51 Jose Mast, R.N. Stopped 05:01 06/01/2025 05:01 06/01 Medication Discontinued: bag #1 completed. Total Luzma Gagan, R.N. amount infused: 1000 mL. IV patency established. IV site checked: Scanned no pain, redness, or swelling. IV flushed thoroughly post-medication administration. - 05:26 Luzmalizbeth Ellisp, R.N. Ondansetron IVP 4 03:49 06/01 Ondansetron IVP 4 mg given via Site# 1. Allergies Given mg (NOW x1) verified and confirmed 5 rights. IV patency established. IV site 03:49 06/01/2025 checked: no pain, redness, or swelling. IV flushed thoroughly Jose Mast, R.N. pre-medication administration. - 03:51 Jose Mast, R.N. Scanned KetorOLAC 03:50 06/01 KetorOLAC (Toradol) IVP 15 mg given via Site# 1. Given (Toradol) IVP 15 mg Allergies verified and confirmed 5 rights. IV patency established. IV 03:50 06/01/2025 (NOW x1) site checked: no pain, redness, or swelling. IV flushed thoroughly Jose Vargas R.N. pre-medication administration. Information reviewed with patient. Scanned Medication Wastage: 15 mg wasted. - 03:51 Jose Vargas R.N. 1 of 2 Counter Top Maker Medication Ordered Medication Administration Date/Time KetorOLAC 05:11 06/01 KetorOLAC (Toradol) IVP 15 mg given via Site# 1. Given (Toradol) IVP 15 mg Allergies verified and confirmed 5 rights. IV patency established. IV 05:11 06/01/2025 (NOW x1) site checked: no pain, redness, or swelling. IV flushed thoroughly Luzma Farah, R.N. pre-medication administration. Information reviewed with patient Scanned including reason for taking this medication. Verbalizes understanding. Medication Wastage: 15 mg wasted. - 05:11 Luzma Farah, R.N. Zofran IVP 4 mg 05:06/01 Zofran IVP 4 mg given via Site# 1. Allergies verified Given (NOW x1) and confirmed 5 rights. IV patency established. IV site checked: no 05:10 06/01/2025 pain, redness, or swelling. IV flushed thoroughly pre-medication Luzma Farah, R.N. administration. Information reviewed with patient including reason Scanned for taking this medication. Verbalizes understanding. - 05:10 Luzma Farah, R.N. 2 of 2 CBC Collected: 5 7:16 AM Status: F Source: [facility] MAIN TYPE CODE TESTS RESULT OUT OF RANGE REFERENCE UNITS LAB WBC(LOINC) WBC 7.9 4.5-10.8 10 3/mcL LAB RBCCT(LOINC) RBC 3.95 Low 4.10-5.30 10 6/mcL LAB HGB(LOINC) Hgb 13.0 12.0-16.0 G/dL LAB HCT(LOINC) Hct 38.6 34.0-46.0 % LAB MCV(LOINC) MCV 97.8 80.0-99.0 fL LAB MCH(LOINC) MCH 33.0 27.0-33.0 pg LAB MCHC(LOINC) MCHC 33.7 32.0-36.0 G/dL LAB RDW(LOINC) RDW 15.1 11.5-15.5 % LAB PLT(LOINC) Platelet 310 150-450 10 3/mcL LAB MPV(LOINC) MPV 7.9 6.6-10.5 fL Performed By: #### CBC, ADIF F, ANEU, BMP, GFR #### [address] [address] .AUTO DIFF Collected: 05/30/2025 7:16 AM Status: F Source: [facility] MAIN TYPE CODE TESTS RESULT OUT OF RANGE REFERENCE UNITS LAB GREGORIA(LOINC) Neutrophil % 56.7 50.0-75.0 % LAB LYM(LOINC) Lymphocyte % 27.4 20.0-40.0 % LAB MON(LOINC) Monocyte % 11.1 2.0-13.0 % LAB EO(LOINC) Eosinophil % 3.9 0.0-6.0 % LAB BAS(LOINC) Basophil % 0.9 0.0-2.5 % LAB ABLYM(LOINC) Lymphocyte, Absolute 2.2 0.9-4.3 10 3/mcL LAB MIKEY(LOINC) Monocyte, Absolute 0.9 0.1-1.4 10 3/mcL LAB AEOS(LOINC) Eosinophil, Absolute 0.3 0.0-0.7 10 3/mcL LAB ABAS(LOINC) Basophil, Absolute 0.1 0.0-0.3 10 3/mcL Performed By: #### CBC, ADIF F, ANEU, BMP, GFR #### [place] [address] .NEUABS Collected: 7:16 AM Status: F Source: [facility] MAIN TYPE CODE TESTS RESULT OUT OF RANGE REFERENCE UNITS LAB ANEU(LOINC) Neutrophil, Absolute 4.5 2.3-8.1 10 3/mcL Performed By: #### CBC, ADIF F, ANEU, BMP, GFR #### [place] [address] BMP Collected: 05/30/2025 7:16 AM Status: F Source: [facility] MAIN TYPE CODE TESTS RESULT OUT OF RANGE REFERENCE UNITS LAB GLU(LOINC) Glucose Level 90 70-110 mg/dL LAB NA(LOINC) Sodium Level 143 136-145 mEq/L LAB K(LOINC) Potassium Level 4.2 3.5-5.0 mEq/L LAB CL(LOINC) Chloride 111 High 98-110 mEq/L LAB CO2(LOINC) CO2 26 22-32 mEq/L LAB EBAL(LOINC) Electrolyte Balance 6.0 4.0-15.0 mEq/L LAB BUN(LOINC) BUN 9.0 8.0-22.0 mg/dL LAB CRE(LOINC) Creatinine Lvl (s) 0.85 0.50-1.20 mg/dL Result Comment: Testing perf ormed on [employer] Mobile analyzer using enzymatic creatinine methodology. LAB BC(LOINC) BUN/Creatinine Ratio 10.6 10.0-22.0 ratio LAB CA(LOINC) Calcium Lvl 9.1 8.7-10.4 mg/dL Performed By: #### CBC, ADIF F, ANEU, BMP, GFR #### [address] [address] .GFR Collected: 05/30/2025 7:16 AM Status: F Source: [facility] MAIN TYPE CODE TESTS RESULT OUT OF RANGE REFERENCE UNITS LAB eGFR(LOINC) Estimated Glomerular Filtration Rate 91 ml/min/1. 73sqm Result Comment: Stages of Chronic Kidney Disease [...] calculate the eGFR results. Performed By: #### CBC, ADIF F, ANEU, BMP, GFR #### [address] [address] CBC Collected: 12:08 PM Status: F Source: [facility] MAIN TYPE CODE TESTS RESULT OUT OF RANGE REFERENCE UNITS LAB WBC(LOINC) WBC 8.3 4.5-10.8 10 3/mcL LAB RBCCT(LOINC) RBC 4.00 Low 4.10-5.30 10 6/mcL LAB HGB(LOINC) Hgb 13.2 12.0-16.0 G/dL LAB HCT(LOINC) Hct 39.3 34.0-46.0 % LAB MCV(LOINC) MCV 98.2 80.0-99.0 fL LAB MCH(LOINC) MCH 33.0 27.0-33.0 pg LAB MCHC(LOINC) MCHC 33.6 32.0-36.0 G/dL LAB RDW(LOINC) RDW 15.8 High 11.5-15.5 % LAB PLT(LOINC) Platelet 316 150-450 10 3/mcL LAB MPV(LOINC) MPV 7.8 6.6-10.5 fL Performed By: #### CBC, ADIF F, ANEU, BMP, GFR #### [address] [address] .AUTO DIFF Collected: 05/29/2025 12:08 PM Status: F Source: [facility] MAIN TYPE CODE TESTS RESULT OUT OF RANGE REFERENCE UNITS LAB GREGORIA(LOINC) Neutrophil % 68.1 50.0-75.0 % LAB LYM(LOINC) Lymphocyte % 20.8 20.0-40.0 % LAB MON(LOINC) Monocyte % 7.7 2.0-13.0 % LAB EO(LOINC) Eosinophil % 2.4 0.0-6.0 % LAB BAS(LOINC) Basophil % 1.0 0.0-2.5 % LAB ABLYM(LOINC) Lymphocyte, Absolute 1.7 0.9-4.3 10 3/mcL LAB MIKEY(LOINC) Monocyte, Absolute 0.6 0.1-1.4 10 3/mcL LAB AEOS(LOINC) Eosinophil, Absolute 0.2 0.0-0.7 10 3/mcL LAB ABAS(LOINC) Basophil, Absolute 0.1 0.0-0.3 10 3/mcL Performed By: #### CBC, ADIF F, ANEU, BMP, GFR #### [address] [address] .NEUABS Collected: 12:08 PM Status: F Source: [facility] MAIN TYPE CODE TESTS RESULT OUT OF RANGE REFERENCE UNITS LAB ANEU(LOINC) Neutrophil, Absolute 5.7 2.3-8.1 10 3/mcL Performed By: #### CBC, ADIF F, ANEU, BMP, GFR #### [address] [address] BMP Collected: 05/29/2025 12:08 PM Status: F Source: [facility] MAIN TYPE CODE TESTS RESULT OUT OF RANGE REFERENCE UNITS LAB GLU(LOINC) Glucose Level 98 70-110 mg/dL LAB NA(LOINC) Sodium Level 142 136-145 mEq/L LAB K(LOINC) Potassium Level 4.2 3.5-5.0 mEq/L LAB CL(LOINC) Chloride 110 98-110 mEq/L LAB CO2(LOINC) CO2 23 22-32 mEq/L LAB EBAL(LOINC) Electrolyte Balance 9.0 4.0-15.0 mEq/L LAB BUN(LOINC) BUN 5.0 Low 8.0-22.0 mg/dL LAB CRE(LOINC) Creatinine Lvl (s) 0.79 0.50-1.20 mg/dL Result Comment: Testing perf ormed on [employer] Mobile analyzer using enzymatic creatinine methodology. LAB BC(LOINC) BUN/Creatinine Ratio 6.3 Low 10.0-22.0 ratio LAB CA(LOINC) Calcium Lvl 9.4 8.7-10.4 mg/dL Performed By: #### CBC, ADIF F, ANEU, BMP, GFR #### [address] [address] .GFR Collected: 12:08 PM Status: F Source: [facility] MAIN TYPE CODE TESTS RESULT OUT OF RANGE REFERENCE UNITS LAB eGFR(LOINC) Estimated Glomerular Filtration Rate 99 ml/min/1. 73sqm Result Comment: Stages of Chronic Kidney Disease [...] calculate the eGFR results. Performed By: #### CBC, ADIF F, ANEU, BMP, GFR #### [address] [address] PRO Collected: 05/28/2025 6:19 AM Status: F Source: [facility] MAIN TYPE CODE TESTS RESULT OUT OF RANGE REFERENCE UNITS LAB PT(LOINC) Protime 12.8 9.0-14.4 seconds Result Comment: Effective , Protime results may be affected by some antibiotics (i.e. Ciprofloxacin, Azithromycin, Bactrim) which may potentiate the action of oral anticoagulants, with further increases in Protime/INR. LAB INR(LOINC) PT International Ratio 1.1 ratio Result Comment: The [employer] (CHEST, 1992, 102:312S- 25S) recommended therapeutic range for oral anticoagulant therapy is: LOW RISK: Prophylaxis of venous thrombosis INR: 2.0-3.0 Treatment of pulmonary embolism 2.0-3.0 Prevention of systemic embolism 2.0-3.0 HIGH RISK: Mechanical prosthetic valves 2.5-3.5 Performed By: #### PRO, MG # ### [address] [id number] MG Collected: 05/28/2025 6:19 AM Status: F Source: [facility] MAIN TYPE CODE TESTS RESULT OUT OF RANGE REFERENCE UNITS LAB MG(LOINC) Magnesium Lvl 1.9 1.6-2.4 mg/dL Performed By: #### PRO, MG # ### [address] [id number] CBC Collected: 6:19 AM Status: F Source: [facility] MAIN TYPE CODE TESTS RESULT OUT OF RANGE REFERENCE UNITS LAB WBC(LOINC) WBC 7.4 4.5-10.8 10 3/mcL LAB RBCCT(LOINC) RBC 3.52 Low 4.10-5.30 10 6/mcL LAB HGB(LOINC) Hgb 11.7 Low 12.0-16.0 G/dL LAB HCT(LOINC) Hct 34.4 34.0-46.0 % LAB MCV(LOINC) MCV 97.8 80.0-99.0 fL LAB MCH(LOINC) MCH 33.2 High 27.0-33.0 pg LAB MCHC(LOINC) MCHC 34.0 32.0-36.0 G/dL LAB RDW(LOINC) RDW 15.2 11.5-15.5 % LAB PLT(LOINC) Platelet 313 150-450 10 3/mcL LAB MPV(LOINC) MPV 7.0 6.6-10.5 fL Performed By: #### CBC, ADIF F, ANEU, CMP, GFR #### [address] [address] .AUTO DIFF Collected: 05/28/2025 6:19 AM Status: F Source: [facility] MAIN TYPE CODE TESTS RESULT OUT OF RANGE REFERENCE UNITS LAB GREGORIA(LOINC) Neutrophil % 57.4 50.0-75.0 % LAB LYM(LOINC) Lymphocyte % 30.4 20.0-40.0 % LAB MON(LOINC) Monocyte % 8.1 2.0-13.0 % LAB EO(LOINC) Eosinophil % 2.6 0.0-6.0 % LAB BAS(LOINC) Basophil % 1.5 0.0-2.5 % LAB ABLYM(LOINC) Lymphocyte, Absolute 2.2 0.9-4.3 10 3/mcL LAB MIKEY(LOINC) Monocyte, Absolute 0.6 0.1-1.4 10 3/mcL LAB AEOS(LOINC) Eosinophil, Absolute 0.2 0.0-0.7 10 3/mcL LAB ABAS(LOINC) Basophil, Absolute 0.1 0.0-0.3 10 3/mcL Performed By: #### CBC, ADIF F, ANEU, CMP, GFR #### [address] [id number] .NEUABS Collected: 6:19 AM Status: F Source: [facility] MAIN TYPE CODE TESTS RESULT OUT OF RANGE REFERENCE UNITS LAB ANEU(LOINC) Neutrophil, Absolute 4.2 2.3-8.1 10 3/mcL Performed By: #### CBC, ADIF F, ANEU, CMP, GFR #### [place] [id number] CMP Collected: 05/28/2025 6:19 AM Status: F Source: [facility] MAIN TYPE CODE TESTS RESULT OUT OF RANGE REFERENCE UNITS LAB GLU(LOINC) Glucose Level 91 70-110 mg/dL LAB NA(LOINC) Sodium Level 143 136-145 mEq/L LAB K(LOINC) Potassium Level 3.6 3.5-5.0 mEq/L LAB CL(LOINC) Chloride 111 High 98-110 mEq/L LAB CO2(LOINC) CO2 24 22-32 mEq/L LAB EBAL(LOINC) Electrolyte Balance 8.0 4.0-15.0 mEq/L LAB BUN(LOINC) BUN 11.0 8.0-22.0 mg/dL LAB CRE(LOINC) Creatinine Lvl (s) 0.87 0.50-1.20 mg/dL Result Comment: Testing perf ormed on [employer] Mobile analyzer using enzymatic creatinine methodology. LAB BC(LOINC) BUN/Creatinine Ratio 12.6 10.0-22.0 ratio LAB CA(LOINC) Calcium Lvl 8.5 Low 8.7-10.4 mg/dL LAB PROT(LOINC) Total Protein 5.5 Low 5.7-8.2 G/dL LAB ALB(LOINC) Albumin Level 3.1 Low 3.2-4.8 G/dL LAB GLB(LOINC) Globulin 2.4 Low 2.5-4.2 G/dL LAB AG(LOINC) A/G Ratio 1.3 0.9-1.6 ratio LAB BILT(LOINC) Bili Total 0.30 0.20-1.20 mg/dL Result Comment: Use of this assay is not recommended for patients undergoing treatment with eltrombopag due to the potential for falsely elevated results. LAB AP(LOINC) Alk Phos 59 38-126 U/L LAB AST(LOINC) AST/SGOT 15 8-34 U/L LAB ALT(LOINC) ALT/SGPT 10 10-49 U/L Performed By: #### CBC, ADIF F, ANEU, CMP, GFR #### [facility] [address] [place] [id number] .GFR Collected: 05/28/2025 6:19 AM Status: F Source: [facility] TYPE CODE TESTS RESULT OUT OF RANGE REFERENCE UNITS LAB eGFR(LOINC) Estimated Glomerular Filtration Rate 88 ml/min/1. 73sqm Result Comment: Stages of Chronic Kidney Disease [...] calculate the eGFR results. Performed By: #### CBC, ADIF F, ANEU, CMP, GFR #### [address] [address] CBL Observed: 05/27/2025 6:17 PM Status: F Source: [facility] . MICRO - Microbiology PROCEDURE: Blood Culture (bacterial) [*1] SOURCE: Blood BODY SITE: COLLECTED DATE/TIME: 05/27/2025 18:17 EDT RECEIVED DATE/TIME: 05/27/2025 18:26 EDT START DATE/TIME: 05/27/2025 18:26 EDT FREE TEXT SOURCE: FINAL REPORTS Final Report [] Verified Date/Time/Personnel: 06/01/2025 18:59 EDT Blood Culture: No Growth at 5 days. PRELIMINARY REPORTS Preliminary Report [] Verified Date/Time/Personnel: 05/27/2025 18:59 EDT Culture has been received in lab and is no growth to date. Routine cultures are held for 5 days. Performing Locations *1: This test was performed at: [facility], [address] [place] [address], [phone]- , CBC Collected: 6:16 PM Status: F Source: [facility] TYPE CODE TESTS RESULT OUT OF RANGE REFERENCE UNITS LAB WBC(LOINC) WBC 10.6 4.5-10.8 10 3/mcL LAB RBCCT(LOINC) RBC 4.11 4.10-5.30 10 6/mcL LAB HGB(LOINC) Hgb 13.4 12.0-16.0 G/dL LAB HCT(LOINC) Hct 40.0 34.0-46.0 % LAB MCV(LOINC) MCV 97.3 80.0-99.0 fL LAB MCH(LOINC) MCH 32.6 27.0-33.0 pg LAB MCHC(LOINC) MCHC 33.4 32.0-36.0 G/dL LAB RDW(LOINC) RDW 15.4 11.5-15.5 % LAB PLT(LOINC) Platelet 357 150-450 10 3/mcL LAB MPV(LOINC) MPV 7.2 6.6-10.5 fL Performed By: #### CBC, ADIF F, ANEU, MDW, LAC, BMP, GFR #### [address] [address] .AUTO DIFF Collected: 05/27/2025 6:16 PM Status: F Source: [facility] TYPE CODE TESTS RESULT OUT OF RANGE REFERENCE UNITS LAB GREGORIA(LOINC) Neutrophil % 68.6 50.0-75.0 % LAB LYM(LOINC) Lymphocyte % 22.7 20.0-40.0 % LAB MON(LOINC) Monocyte % 6.5 2.0-13.0 % LAB EO(LOINC) Eosinophil % 1.4 0.0-6.0 % LAB BAS(LOINC) Basophil % 0.8 0.0-2.5 % LAB ABLYM(LOINC) Lymphocyte, Absolute 2.4 0.9-4.3 10 3/mcL LAB MIKEY(LOINC) Monocyte, Absolute 0.7 0.1-1.4 10 3/mcL LAB AEOS(LOINC) Eosinophil, Absolute 0.1 0.0-0.7 10 3/mcL LAB ABAS(LOINC) Basophil, Absolute 0.1 0.0-0.3 10 3/mcL Performed By: #### CBC, ADIF F, ANEU, MDW, LAC, BMP, GFR #### [address] [address] .NEUABS Collected: 6:16 PM Status: F Source: [facility] TYPE CODE TESTS RESULT OUT OF RANGE REFERENCE UNITS LAB ANEU(LOINC) Neutrophil, Absolute 7.3 2.3-8.1 10 3/mcL Performed By: #### CBC, ADIF F, ANEU, MDW, LAC, BMP, GFR #### [place] [address] .MDW Collected: 05/27/2025 6:16 PM Status: F Source: [facility] TYPE CODE TESTS RESULT OUT OF RANGE REFERENCE UNITS LAB MDW(LOINC) Monocyte Distribution Width 20.07 High 0.00-20.00 Result Comment: For adults i n ED, MDW>20.0 may be associated with a higher risk of sepsis during the first 12hrs of hospital admission Performed By: #### CBC, ADIF F, ANEU, MDW, LAC, BMP, GFR #### [place] [address] LAC Collected: 05/27/2025 6:16 PM Status: F Source: [facility] TYPE CODE TESTS RESULT OUT OF RANGE REFERENCE UNITS LAB LAC(LOINC) Lactic Acid Lvl 0.7 0.5-2.2 mmol/L Performed By: #### CBC, ADIF F, ANEU, MDW, LAC, BMP, GFR #### [place] [address] BMP Collected: 05/27/2025 6:16 PM Status: F Source: [facility] TYPE CODE TESTS RESULT OUT OF RANGE REFERENCE UNITS LAB GLU(LOINC) Glucose Level 95 70-110 mg/dL LAB NA(LOINC) Sodium Level 141 136-145 mEq/L LAB K(LOINC) Potassium Level 4.3 3.5-5.0 mEq/L LAB CL(LOINC) Chloride 111 High 98-110 mEq/L LAB CO2(LOINC) CO2 24 22-32 mEq/L LAB EBAL(LOINC) Electrolyte Balance 6.0 4.0-15.0 mEq/L LAB BUN(LOINC) BUN 12.0 8.0-22.0 mg/dL LAB CRE(LOINC) Creatinine Lvl (s) 0.94 0.50-1.20 mg/dL Result Comment: Testing perf ormed on [employer] Mobile analyzer using enzymatic creatinine methodology. LAB BC(LOINC) BUN/Creatinine Ratio 12.8 10.0-22.0 ratio LAB CA(LOINC) Calcium Lvl 9.1 8.7-10.4 mg/dL Performed By: #### CBC, ADIF F, YOUNG LEVI, LAC, BMP, GFR #### [address] [address] .GFR Collected: 05/27/2025 6:16 PM Status: F Source: [facility] TYPE CODE TESTS RESULT OUT OF RANGE REFERENCE UNITS LAB eGFR(LOINC) Estimated Glomerular Filtration Rate 81 ml/min/1. 73sqm Result Comment: Stages of Chronic Kidney Disease [...] calculate the eGFR results. Performed By: #### JANEEN, ADIF F, YOUNG LEVI, LAC, BMP, GFR #### [address] [address] UA Collected: 05/27/2025 6:16 PM Status: F Source: [facility] TYPE CODE TESTS RESULT OUT OF RANGE REFERENCE UNITS LAB SPCUA(LOINC) UA Specimen Type Hilario Catheter LAB CLRUA(LOINC) UA Color Yellow LAB APPUA(LOINC) UA Appear Cloudy Abnormal Clear LAB SGUA(LOINC) UA Spec Grav 1.010 1.006-1.029 LAB GLUA(LOINC) UA Glucose Negative Negative mg/dL LAB BILUA(LOINC) UA Bili Negative Neg-Trace LAB KETUA(LOINC) UA Ketones Negative Neg-Trace mg/dL LAB BLDUA(LOINC) UA Blood Moderate Abnormal Neg-Trace LAB PHUA(LOINC) UA pH >=8.5 Abnormal 5.0 - 8.0 LAB PROUA(LOINC) UA Protein 100 Abnormal Negative mg/dL LAB UROUA(LOINC) UA Urobilinogen 0.2 0.2-1.0 E.U ./dL LAB NITUA(LOINC) UA Nitrite Positive Abnormal Negative LAB LEUUA(LOINC) UA Leuk Est Large Abnormal Negative Performed By: #### UA, UAMIC #### [address] [address] UAMIC Collected: 05/27/2025 6:16 PM Status: F Source: [facility] TYPE CODE TESTS RESULT OUT OF RANGE REFERENCE UNITS LAB RBCUA(LOINC) UA RBC 3-5 Abnormal 0-2 /hpf LAB WBCUA(LOINC) UA WBC 10-20 Abnormal 0-5 /hpf LAB EPIUA(LOINC) UA Squam Epithelial 0-2 0-20 /hpf LAB BACUA(LOINC) UA Bacteria 1+ Abnormal Negative /hpf LAB TPCR(LOINC) UA Trip Rai Crystals 3+ /hpf LAB CRBCU(LOINC) UA Crenated RBCs 0-2 Abnormal /hpf Performed By: #### UA, UAMIC #### [address] [address] CBL Observed: 05/27/2025 6:15 PM Status: F Source: [facility] . MICRO - Microbiology PROCEDURE: Blood Culture (bacterial) [*1] SOURCE: Blood BODY SITE: COLLECTED DATE/TIME: 05/27/2025 18:15 EDT RECEIVED DATE/TIME: 05/27/2025 18:26 EDT START DATE/TIME: 05/27/2025 18:26 EDT FREE TEXT SOURCE: FINAL REPORTS Final Report [] Verified Date/Time/Personnel: 06/01/2025 18:59 EDT Blood Culture: No Growth at 5 days. PRELIMINARY REPORTS Preliminary Report [] Verified Date/Time/Personnel: 05/27/2025 18:59 EDT Culture has been received in lab and is no growth to date. Routine cultures are held for 5 days. Performing Locations *1: This test was performed at: [facility], [address] [place] [address], [phone]- , CUR Observed: 05/27/2025 5:05 PM Status: F Source: [facility] . MICRO - Microbiology PROCEDURE: Urine Culture [O1 *1] SOURCE: Urine, Hilario Catheter BODY SITE: COLLECTED DATE/TIME: 05/27/2025 17:05 EDT RECEIVED DATE/TIME: 05/27/2025 18:47 EDT START DATE/TIME: 05/27/2025 18:47 EDT FREE TEXT SOURCE: FINAL REPORTS Final Report [] Verified Date/Time/Personnel: 05/29/2025 07:34 EDT 10,000 - 50,000 cfu/ml Mixed growth consistent with normal urogenital tom. PRELIMINARY REPORTS Preliminary Report [] Verified Date/Time/Personnel: 05/28/2025 08:43 EDT No growth to date Preliminary Report [] Verified Date/Time/Personnel: 05/27/2025 19:59 EDT Specimen received in lab. Order Comments O1: Urine Culture Added by Discern Performing Locations *1: This test was performed at: [address], [address] [place] [address] UA Collected: 05/27/2025 5:05 PM Status: F Source: [facility] TYPE CODE TESTS RESULT OUT OF RANGE REFERENCE UNITS LAB SPCUA(LOINC) UA Specimen Type Clean Catch LAB CLRUA(LOINC) UA Color Yellow LAB APPUA(LOINC) UA Appear Cloudy Abnormal Clear LAB SGUA(LOINC) UA Spec Grav 1.020 1.006-1.029 LAB GLUA(LOINC) UA Glucose Negative Negative mg/dL LAB BILUA(LOINC) UA Bili Negative Neg-Trace LAB KETUA(LOINC) UA Ketones Negative Neg-Trace mg/dL LAB BLDUA(LOINC) UA Blood Negative Neg-Trace LAB PHUA(LOINC) UA pH 8.5 Abnormal 5.0 - 8.0 LAB PROUA(LOINC) UA Protein Trace Negative mg/dL LAB UROUA(LOINC) UA Urobilinogen 1.0 0.2-1.0 E.U ./dL LAB NITUA(LOINC) UA Nitrite Negative Negative LAB LEUUA(LOINC) UA Leuk Est Trace Negative Performed By: #### UA, UAMIC #### [place] [address] UAMIC Collected: 05/27/2025 5:05 PM Status: F Source: [facility] TYPE CODE TESTS RESULT OUT OF RANGE REFERENCE UNITS LAB RBCUA(LOINC) UA RBC Rare 0-2 /hpf LAB WBCUA(LOINC) UA WBC Rare 0-5 /hpf LAB EPIUA(LOINC) UA Squam Epithelial 0-2 0-20 /hpf Performed By: #### UA, UAMIC #### [place] [address] URINALYSIS Collected: 8:30 PM Status: F Source: [facility] TYPE CODE TESTS RESULT OUT OF RANGE REFERENCE UNITS LAB URINALYSIS(ISAIAH NC) URINALYSIS Result Comment: URINALYSIS LAB Specimen Type(LOINC) Specimen Type R LAB Color(LOINC) Color yellow NORMAL: YELLOW LAB Clarity(LOINC) Clarity sl.cloudy RAJIV L: CLEAR LAB ph(LOINC) ph 8 NORMAL: 5.0-8.0 LAB Protein(LOINC) Protein 100 Abnormal RAJIV L: NEGATIVE LAB Glucose(LOINC) Glucose NORM RAJIV L: NORMAL LAB Ketone(LOINC) Ketone NEG NORMAL : NEGATIVE LAB Bilirubin(LOIN C) Bilirubin NEG NORMAL: NEGATIVE LAB Blood(LOINC) Blood 150 Abnormal NORMAL: NEGATIVE LAB Urobilinog(ISAIAH NC) Urobilinog NORM NORMAL: NORMAL LAB Sp Stem(LOINC) Sp Stem 1.010 NORMAL: 1.010-1.030 LAB Nitrite(LOINC) Nitrite POS RAJIV L: NEGATIVE LAB Leukocytes(ISAIAH NC) Leukocytes 500 Abnormal NORMAL: NEGATIVE LAB Microscopic(LO INC) Microscopic SEE BELOW Result Comment: MICROSCOPIC LAB Wbc(LOINC) Wbc 11-15 0-5/hpf LAB Rbc(LOINC) Rbc 0-5 0-3/hpf LAB Casts(LOINC) Casts NONE LAB Crystals(LOINC ) Crystals SEE BELOW LAB Triple Phos(LOINC) Triple Phos 1+ NORMAL: NONE LAB Amorphous(LOIN C) Amorphous 2+ LAB Bacteria(LOINC ) Bacteria 3+ LAB Epi Cells(LOINC) Epi Cells OCC LAB Mucous(LOINC) Mucous NONE LAB Yeast(LOINC) Yeast NONE Performed By: #### [id number] ## ## [facility],[address] [place] [address] SERUM QUAL Collected: 05/26/2025 8:30 PM S tatus: F Source: [facility] TYPE CODE TESTS RESULT OUT OF RANGE REFERENCE UNITS LAB SER(LOINC) SER NEGATIVE NEGATIVE LAB INTERNAL QC(LOINC) INTERNAL QC PASS LAB EXTERNAL QC DONE?(LOINC) EXTERNAL QC DONE? YES Performed By: #### [id number] ## ## [facility],[address] [place] [id number] CMP WITH EGFR Collected: 8:30 PM Status: F Source: [facility] TYPE CODE TESTS RESULT OUT OF RANGE REFERENCE UNITS LAB CMP with eGFR(LOINC) CMP with eGFR Result Comment: COMPREHENSIV E METABOLIC PANEL LAB SODIUM(LOINC) SODIUM 141 136 - 145 mmol/l LAB POTASSIUM(LOIN C) POTASSIUM 4.1 3.5 - 5.1 mmol/L LAB CHLORIDE(LOINC ) CHLORIDE 106 98 - 107 mmol/L LAB CO2(LOINC) CO2 21.5 21.0 - 32.0 mmol/L LAB GLUCOSE(LOINC) GLUCOSE 101 74 - 106 mg/dl LAB BUN(LOINC) BUN 13 7 - 18 mg/dl LAB CREATININE(ISAIAH NC) CREATININE 1.17 High 0.55 - 1.02 mg/dl LAB AST/SGOT(LOINC ) AST/SGOT 14 13 - 39 U/L LAB ALK PHOS(LOINC) ALK PHOS 66 46 - 116 U/L LAB CALCIUM(LOINC) CALCIUM 8.7 8.5 - 10.1 mg/dl LAB TOTAL PROTEIN(LOINC) TOTAL PROTEIN 6.6 6.4 - 8.2 g/dl LAB ALBUMIN(LOINC) ALBUMIN 3.7 3.4 - 5.0 g/dL LAB GLOBULIN(LOINC ) GLOBULIN 2.9 1.5 - 3.8 G/DL LAB A/G RATIO(LOINC) A/G RATIO 1.3 0.9 - 1.6 LAB TOTAL BILI(LOINC) TOTAL BILI 0.2 0.2 - 1.0 mg/dl LAB B/C RATIO(LOINC) B/C RATIO 11 0 - 30 ratio LAB ALT/SGPT(LOINC ) ALT/SGPT 17 16 - 63 U/L LAB ANION GAP(LOINC) ANION GAP 18 10 - 20 mmol/L LAB AGE(LOINC) AGE 34 years LAB eGFR(LOINC) eGFR 52 Low 60 - 999 ML/MINUT E LAB eGFR(AA)(LOINC ) eGFR(AA) >60 60 - 999 ML/MINUT E Result Comment: ACCORDING TO THE NATIONAL KIDNEY DISEASE EDUCATION PROGRAM(NKDE), A NORMAL eGFR IS A VALUE GREATER THAN OR EQUAL TO 60 ML/MIN/1.73 SQ METERS. CHRONIC KIDNEY DISEASE: <60mL/MIN/1.73 SQ METERS KIDNEY FAILURE: <15mL/MIN/1.73 SQ METERS THIS TEST SHOULD ONLY BE USED FOR PATIENTS 18 YEARS OF AGE AND OLDER. Performed By: #### [id number] ## ## [place] [id number] LACTATE Collected: 8:30 PM Status: F Source: [facility] TYPE CODE TESTS RESULT OUT OF RANGE REFERENCE UNITS LAB LACTATE(INC) LACTATE 0.8 0.4 - 2.0 mmol/L Performed By: #### [id number] ## ## [place] [id number] CBC + DIFF Collected: 8:30 PM Status: F Source: [facility] TYPE CODE TESTS RESULT OUT OF RANGE REFERENCE UNITS LAB CBC + DIFF(LOINC) CBC + DIFF Result Comment: CBC-COMPLETE BLOOD COUNT LAB WBC(LOINC) WBC 9.1 4.5 - 10.8 x 10EE3/UL LAB RBC(LOINC) RBC 3.55 Low 4.10 - 5.30 x 10EE6/UL LAB HEMOGLOBIN(ISAIAH NC) HEMOGLOBIN 12.1 12.0 - 16.0 g/dl LAB HEMATOCRIT(ISAIAH NC) HEMATOCRIT 34.1 34.0 - 46.0 % LAB MCV(LOINC) MCV 96 80 - 99 fl LAB MCH(LOINC) MCH 34 High 27 - 33 pg LAB MCHC(LOINC) MCHC 36 32 - 36 X10 3 LAB RDW/CV(LOINC) RDW/CV 14.1 12.0 - 15.6 % LAB PLATELET(LOINC ) PLATELET 372 150 - 450 x10EE3/UL LAB MPV(LOINC) MPV 6.7 6.6 - 10.5 fl Result Comment: AUTOMATED DI FFERENTIAL LAB NEUT %(LOINC) NEUT % 60.3 46.0 - 76.0 % LAB LYMPH %(LOINC) LYMPH % 29.1 20.0 - 45.0 % LAB MONOS %(LOINC) MONOS % 7.1 0.0 - 10.0 % LAB EO %(LOINC) EO % 3.1 0.0 - 7.0 % LAB BASO %(LOINC) BASO % 0.4 0.0 - 2.0 % LAB Lymph #(LOINC) Lymph # 2.66 0.80 - 2.80 x10EE 3/UL LAB Neut #(LOINC) Neut # 5.51 1.50 - 7.10 x10EE3 /UL LAB Green #(LOINC) Green # 0.65 0.20 - 1.00 x10EE3 /UL LAB EO #(LOINC) EO # 0.28 0.00 - 0.50 x10EE3/U L LAB Baso #(LOINC) Baso # 0.04 0.00 - 0.10 x10EE3 /UL LAB MANUAL DIFF(LOINC) MANUAL DIFF N/A LAB MORPHOLOGY(ISAIAH NC) MORPHOLOGY N/A Performed By: #### [id number] ## ## [place] [id number] URINE CULTURE [CCL] Observed: 05/26/2025 8:30 PM Status: F Source: [facility] URCUL See Results Below See Below CULTURE, URINE MIXED MICROBIOTA >=100,000 CFU/ml Mixed microbiota No further workup. Mixed microbiota can be due to???urine???contamination with s llection technique or straight catheterization for???urine???collection. SOURCE: Urine (Nonspecific) [place] [address] Joao Alvarenga III, M.D. [id number] SEND TO IC NO Performed By: #### [id number] ## ## [place] [id number] ED VITALS FLOW SHEET Observed: 8:01 PM Status: F Source: [facility] Vitals Vital Sign Flow Sheet [facility] [address] [place] [id number] 05/26/2025 [id number] Sex: Female : 1990 Age: 34y Measurements Wt: 52.2 kg, Ht/Aden: 65.0 in, BMI: 19.14 Measured Time BP MAP HR RR O2Sat ETCO2 Temp Pain GCS RTS 22:30 05/26/2025 16 0 22:27 05/26/2025 66 97% 22:21 05/26/2025 130/85 100 66 22:17 05/26/2025 67 97% 22:12 05/26/2025 65 97% 22:07 05/26/2025 124/83 90 68 22:07 05/26/2025 71 98% 22:02 05/26/2025 62 97% 21:57 05/26/2025 71 98% 21:52 05/26/2025 63 98% 21:51 05/26/2025 113/71 89 63 21:47 05/26/2025 65 97% 21:42 05/26/2025 64 98% 21:37 05/26/2025 63 97% 21:36 05/26/2025 122/81 94 60 1 of 2 Vitals Measured Time BP MAP HR RR O2Sat ETCO2 Temp Pain GCS RTS 21:32 05/26/2025 62 99% 21:27 05/26/2025 66 98% 21:22 05/26/2025 67 98% 21:17 05/26/2025 57 97% 21:12 05/26/2025 57 98% 21:07 05/26/2025 56 99% 21:07 05/26/2025 126/103 110 55 21:02 05/26/2025 61 97% 20:57 05/26/2025 59 99% 20:52 05/26/2025 61 97% 20:51 05/26/2025 113/82 90 58 20:47 05/26/2025 61 96% 20:44 05/26/2025 116/79 94 55 20:42 05/26/2025 65 95% 20:37 05/26/2025 60 98% 20:33 05/26/2025 60 98% 20:28 05/26/2025 65 97% 20:25 05/26/2025 69 97% 20:21 05/26/2025 127/79 97 66 20:20 05/26/2025 68 97% 20:15 05/26/2025 67 97% 20:10 05/26/2025 72 98% 20:10 05/26/2025 115/80 92 73 16 98% 98.0 F 9 20:06 05/26/2025 115/80 92 75 2 of 2 ED ORDER SHEET (CPOE ONLY) Observed: 8:01 PM Status: F Source: [facility] Order Sheet Order Sheet [address] [place] [address] [id number] 05/26/2025 Patient: TOR BERMAN Sex: Female : 1990 Age: 34y MEASUREMENTS: Wt: 52.2 kg, Ht/Aden: 65.0 in, BMI: 19.14 ALLERGIES: Haldol, Penicillins MEDICATION/IV/DRIP/FLUID ORDERS Order Description Priority Entered Acknowledged Completed IV NS 0.9 %1000 mL at 999 20:22 05/26/2025 20:29 20:40 mL/hr (NOW x1) Gonzalez Pineda D.O. 05/26/2025 05/26/2025 Tadeo Ahuja R.N., RAprilNApril KetorOLAC (Toradol) IVP15 mg 20:22 05/26/2025 20:29 20:41 (NOW x1) Gonzalez Pineda D.O. 05/26/2025 05/26/2025 Tadeo Ahuja R.N., JamisonNApril Ondansetron IVP4 mg (NOW x1) 20:22 05/26/2025 20:29 20:42 Gonzalez Pineda D.O. 05/26/2025 05/26/2025 Tadeo Ahuaj R.N., Tino.NApril KetorOLAC (Toradol) IVP15 mg 21:09 05/26/2025 21:10 21:15 (NOW x1) Gonzalez Pineda D.O. 05/26/2025 05/26/2025 Louis Ahuja R.N. RAprilNApril 1 of 4 Order Sheet Reason for ordering with alerts: Clinical consideration given --21:09 05/26/2025 Gonzalez Pineda D.O. Ondansetron IVP4 mg (NOW x1) 21:29 05/26/2025 21:29 21:39 Gonzalez Pineda D.O. 05/26/2025 05/26/2025 Louis Ahuja R.N. R.NApril Reason for ordering with alerts: Clinical consideration given --21:29 05/26/2025 Gonzalez Pineda D.O. MORPHine IVP2 mg (NOW x1, 21:29 05/26/2025 21:29 21:35 HIGH ALERT MEDICATION) Gonzalez Pineda D.O. 05/26/2025 05/26/2025 Louis Ahuja R.N. R.NApril Order Comments: 21:35 05/26/2025: Order morphine 2mg iv given for 06/12 bilateral flank painCompleted. Louis Darden R.N. Reason for ordering with alerts: Clinical consideration given --21:29 05/26/2025 Gonzalez Pineda D.O. cefTRIAXone (Rocephin) IVPB 21:42 05/26/2025 21:43 21:51 1gm/50ml NS1 g diluted in Gonzalez Pineda D.O. 05/26/2025 05/26/2025 sodium chloride IVPB 0.9 % Louis Ahuja, Minibag+ 50 mL at 100 mL/hr R.N. R.N. (NOW x1) Reason for ordering with alerts: Clinical consideration given --21:42 05/26/2025 Gonzalez Pineda D.O. HYDROmorphone (Dilaudid) 22:11 05/26/2025 22:13 22:20 IVP0.5 mg (NOW x1, HIGH Gonzalez Pineda D.O. 05/26/2025 05/26/2025 ALERT MEDICATION) Louis Ahuja R.NApril R.N. Reason for ordering with alerts: Clinical consideration given --22:11 05/26/2025 Gonzalez Pineda D.O. LAB ORDERS Order Description Priority Entered Acknowledged Collected Completed CBC w Diff Stat Stat 20:22 05/26/2025 20:28 05/26/2025 20:50 05/26/2025 Kendra Stanford Charles Wilbur, Tino.N. R.N. 2 of 4 Order Sheet CMP Stat Stat 20:22 05/26/2025 20:29 05/26/2025 20:50 05/26/2025 Kendra Stanford Charles Wilbur, R.N. R.N. Lactate, Serum Stat Stat 20:22 05/26/2025 20:29 05/26/2025 20:50 05/26/2025 Kendra Stanford Charles Wilbur, Tino.N. R.N. Urinalysis Stat Stat 20:22 05/26/2025 20:29 05/26/2025 20:50 05/26/2025 Kendra Stanford Charles Wilbur, Tino.N. R.N. HCG, Qual Serum Stat Stat 20:23 05/26/2025 20:29 05/26/2025 20:50 05/26/2025 Kendra Stanford Charles Wilbur, Tino.N. R.N. Urine Culture [CCL] Stat Stat 21:42 05/26/2025 21:43 05/26/2025 21:43 05/26/2025 Kendra Stanford Charles Wilbur, R.N. R.N. DIAGNOSTIC STUDY ORDERS Order Description Priority Entered Acknowledged Completed CT KUB (Kidney stone) Stat Stat 20:22 05/26/2025 20:29 20:50 Gonzalez Pineda D.O. 05/26/2025 05/26/2025 Louis Ahuja, Tino.N. R.N. Order Comments: 20:22 05/26/2025: Status: Not . Gonzalez Pineda D.O. Reason for Study: Flank Pain STAFF ORDERS Order Description Priority Entered Acknowledged Collected Completed IV Saline Lock 20:22 05/26/2025 20:29 05/26/2025 20:50 05/26/2025 Kendra Stanford Charles Wilbur, R.N. RFara Vital Signs every 30 20:22 05/26/2025 20:29 05/26/2025 20:50 05/26/2025 minutes Kendra Stanford Charles Wilbur, 3 of 4 Order Sheet R.N. R.N. 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 R.N. [Electronically signed by Gonzalez Pineda D.O. (05/27/2025 01:26 EDT)] 4 of 4 ED SUPER BILL Observed: 05/26/2025 8:01 PM Status: F Source: [address] [address] [id number] 05/26/2025 Patient: TOR BERMAN Sex: Female : 1990 Age: 34y Item Facility Professional Category Description Code Code Quantity Fee Total Drugs Normal Saline 104563 1 $0.00 $0.00 1000cc (481127) Nurse/E/M EMERGENCY 085785 1 $0.00 $0.00 DEPARTMENT VISIT HIGH/URGENT SEVERITY (10512-08) Nurse/IV/IM/Infusions Drip/IVPB initial 339009 1 $0.00 $0.00 (87834) Nurse/IV/IM/Infusions Hydration 000807 1 $0.00 $0.00 additional hour (52770) Nurse/IV/IM/Infusions IVP additional 950656 3 $0.00 $0.00 push (07416) Nurse/IV/IM/Infusions IVP same med 760693 2 $0.00 $0.00 (31 min apart) (49227) Grand Total $0.00 1 of 2 [facility] Providers Gonzalez Pineda D.O. Chief Complaint FLANK PAIN. Principal Diagnosis Acute urinary tract infection with cystitis associated with indwelling catheter. No hematuria. ICD-10 Codes N30.90: Cystitis, unspecified without hematuria 2 of 2 ED NURSES CLINICAL NOTE Observed: 2024 8:01 PM Status: F Source: [facility] Nurse Narrative Nurse Clinical Narrative [facility] [address] [facility] [place] [address] [phone] 05/26/2025 20:01:00 Patient: TOR BERMAN Sex: Female : 1990 Age: 34y Disposition: Discharge to Home Disposition Decision Time: 22:11 05/26/2025 Departure Time: 22:30 05/26/2025 TRIAGE Arrived by private vehicle. Historian: (patient). Accompanied by family. Triage time: 20:05 05/26/2025. Acuity: LEVEL 3. Chief Complaint: ABDOMINAL PAIN and NAUSEA. Alert. No acute distress. Onset. (2 days ago). SEPSIS SCREEN: NEGATIVE. SIRS criteria negative. No possible sources of infection. -- 20:05/26/25 EDT Tadeo Tejeda R.N. 20:05/26/25. BP: 115/80 MAP: 92. HR: 73. RR: 16. O2 saturation: 98% Temperature: 98 F. Pain level now 9/10. -- 20:10 05/26/25 EDT Tadeo Tejeda R.N. Measurements: 20:05/26/25 Wt: 52.2 kg, Ht/Aden: 65.0 in, BMI: 19.14 -- 20:05/26/25 EDT Tadeo Tejeda R.N. Medications: zofran: 4 mg every 6 hours . -- 20:05/26/25 EDT Tadeo Tejeda R.N. lexapro: 20 mg once a day . -- 20:05/26/25 EDT Tadeo Tejeda R.N. 1 of 5 Nurse Narrative Lorazepam Intensol 2 mg/mL oral concentrate: 1 mg three times a day . -- 20:05/26/25 EDT Tadeo Tejeda R.N. oxycodone 10 mg tablet: 10 mg every 6 hours . -- 20:07 05/26/25 EDT Tadeo Tejeda R.N. Allergies: Penicillins -- 20:05/26/25 LILIANAT Tadeo Tejeda R.N. Haldol -- 20:05/26/25 LILIANAT Tadeo Tejeda R.N. Problems: Cancer. (stage 3 cervicle. Currently in remission) -- 20:05/26/25 LILIANAT Tadeo Tejeda R.N. Renal Failure. (Left kidney only) -- 20:05/26/25 LILIANAT Tadeo Tejeda R.N. Depression -- 20:05/26/25 LILIANAT Tadeo Tejeda R.N. Anxiety disorder -- 20:05/26/25 LILIANAT Tadeo Tejeda R.N. Surgeries: nephrostomy tube -- 20:07 05/26/25 LILIANAT Tadeo Tejeda R.N. cervicle biopsy -- 20:07 05/26/25 LILIANAT Tadeo Tejeda R.N. History 20:05/26/25. SOCIAL HX: Regular vaping using vape. Vaping solution is nicotin and THC concentrates. Drug use: marijuana. No alcohol use. The patient has not traveled outside the [place] Infectious disease exposure: No infectious disease exposure. ABUSE ASSESSMENT: The patient answered "yes" to the question(s) "Do you feel safe in your home?" and "no" to the question(s) "Are you afraid to go home?". SELF HARM ASSESSMENT: Self harm assessment was performed. The patient answered no to the question(s) "Have you recently felt down, depressed, or hopeless?" and "Do you have thoughts of harming or killing yourself?". FALL RISK ASSESSMENT: Fall risk assessment completed. No risk factors identified. -- 20:10 05/26/25 LILIANAT Tadeo Tejeda R.N. 2 of 5 Nurse Narrative Interventions 20:05 05/26/25. Identification band on patient. Advanced care plan discussed with patient. Patient does not have advanced directive. -- 20:10 05/26/25 EDT Tadeo Tejeda R.N. PHYSICAL ASSESSMENT 20:13 05/26/25. GENERAL / NEURO / PSYCH: Alert. Oriented X 4. Appears in pain. ( 2 days of bilateral flank pain and lower abd pain, sharp). RESPIRATORY: Respirations not labored. GI / : The patient has had nausea. Abdomen soft. Abdominal tenderness. SKIN: Skin is warm and dry. -- 20:13 05/26/25 EDT Louis Darden R.N. NURSING PROGRESS NOTES 20:05/26/25. Head of bed elevated 30 degrees. Patient identifiers checked. Call light placed in reach. Side rails up x 1. Bed placed in lowest position. Brakes of bed on. -- 20:13 05/26/25 EDT Louis Darden R.N. 20:40 05/26/25. IV NS 0.9 % 1000 mL started in bag#1 1000 mL at 999 mL/hr via Site# 1. -- 20:40 05/26/25 EDT Tadeo Tejeda R.N. 20:41 05/26/25. KetorOLAC (Toradol) IVP 15 mg given via Site# 1. Medication Wastage: 15 mg wasted. -- 20:41 05/26/25 EDT Tadeo Tejeda R.N. 20:41 05/26/25. Ondansetron IVP 4 mg given via Site# 1. -- 20:42 05/26/25 EDT Tadeo Tejeda R.N. 20:44 05/26/25. BP: 116/79 MAP: 94 mmHg. HR: 55 bpm. -- 20:51 05/26/25 EDT Louis Darden R.N. 20:47 05/26/25. HR: 61 bpm. O2 saturation: 96%. -- 20:51 05/26/25 EDT Louis Darden R.N. 20:51 05/26/25. Patient waiting for lab and CT results. -- 20:52 05/26/25 EDT Louis Darden R.N. 20:51 05/26/25. BP: 113/82 MAP: 90 mmHg. HR: 58 bpm. -- 20:51 05/26/25 EDT Louis Darden R.N. 20:57 05/26/25. ( pt reports toradol has helped relieve abd pain but that her flank pain is still 07/13. will inform dr pineda for additional pain meds.). -- 20:57 05/26/25 EDT Louis Darden R.N. 21:02 05/26/25. ( dr pineda informed of pt's c/o flank pain, ct results available, further dispo pending.). -- 21:17 05/26/25 EDT Louis Darden R.N. 21:13 05/26/25. KetorOLAC (Toradol) IVP 15 mg given via Site# 1. Allergies verified and confirmed 5 rights. IV patency established. IV site checked: no pain, redness, or swelling. IV flushed thoroughly pre-medication administration. IVP given by nurse. Information reviewed with patient including reason for taking this medication. Verbalizes understanding. (). Medication Wastage: 15 mg wasted. -- 21:15 05/26/25 EDT Louis Darden R.N. 3 of 5 Nurse Narrative 21:15 05/26/25. IV NS 0.9 %: Medication Discontinued. bag #1 infused. Total amount infused: 1000 mL. IV patency established. IV site checked: no pain, redness, or swelling. IV flushed thoroughly post-medication administration. -- 21:16 05/26/25 EDT Louis Darden R.N. 21:37 05/26/25. Ondansetron IVP 4 mg given via Site# 1. Allergies verified and confirmed 5 rights. IV patency established. IV site checked: no pain, redness, or swelling. IV flushed thoroughly pre-medication administration. IVP given by nurse. Information reviewed with patient including reason for taking this medication. Verbalizes understanding. -- 21:39 05/26/25 EDT Louis Darden R.N. 21:50 05/26/25. cefTRIAXone (Rocephin) IVPB 1gm/50ml NS 1 g started at 100 mL/hr diluted in sodium chloride IVPB 0.9 % Minibag+ 50 mL via Site# 1. Allergies verified and confirmed 5 rights. Via dial-a-flow. IV patency established. IV site checked: no pain, redness, or swelling. IV flushed thoroughly pre-medication administration. Information reviewed with patient including reason for taking this medication. Verbalizes understanding. -- 21:51 05/26/25 EDT Louis Darden R.N. 22:06 05/26/25. cefTRIAXone (Rocephin) IVPB 1gm/50ml NS: Medication Discontinued. IV infused. Total amount infused: 50 mL. IV patency established. IV site checked: no pain, redness, or swelling. IV flushed thoroughly post-medication administration. -- 22:11 05/26/25 EDT Louis Darden R.N. 22:17 05/26/25. HYDROmorphone (Dilaudid) IVP 0.5 mg given via Site# 1. Allergies verified and confirmed 5 rights. IV patency established. IV site checked: no pain, redness, or swelling. IV flushed thoroughly pre-medication administration. IVP given by nurse. Information reviewed with patient including reason for taking this medication. Verbalizes understanding. (8-9/10 bilateral flank pain). Medication Wastage: 0.5 mg wasted. -- 22:20 05/26/25 EDT Louis Darden R.N. 22:05/26/25. ( pt medicated for 8-9/10 bilateral flank pain prior to discharge, pt states she has her father outside waiting on her to be discharged and will drive her home.). -- 22:25 05/26/25 EDT Louis Darden R.N. DISPOSITION / DISCHARGE 20:25 05/26/25. Site #1 started in the left wrist with a 20g angiocath with good blood return; 1 attempt. Blood drawn: rainbow set tube(s). Saline lock flushed with 5 mL saline. -- 20:40 05/26/25 EDT Tadeo Tejeda R.N. 22:21 05/26/25. BP: 130/85 MAP: 100 mmHg. HR: 66 bpm. -- 22:36 05/26/25 EDT Louis Darden R.N. 22:27 05/26/25. HR: 66 bpm. O2 saturation: 97%. -- 22:36 05/26/25 EDT Louis Darden R.N. 22:30 05/26/25. Condition at departure: improved. Discharge instructions provided and reviewed. Patient verbalized understanding. Written instructions provided in Palestinian. The patient was discharged home and accompanied by parent. The patient left ambulatory and via private vehicle. Parent driving. -- 22:34 05/26/25 EDT Louis Darden R.N. Departure time: 22:30 05/26/2025. -- 22:35 05/26/25 EDT Louis Darden R.N. 22:30 05/26/25. RR: 16. Pain level now 0/10. -- 22:36 05/26/25 EDT Louis Darden R.N. 22:30 05/26/25. Site #1 removed upon discharge. Catheter intact. Bandage applied. -- 22:35 05/26/25 EDT Louis Darden R.N. 4 of 5 Nurse Narrative (Electronically signed by Louis Darden R.N. 05/26/25 22:37:16 EDT) Generated by [facility] 5 of 5 ED PHYSICIAN CLINICAL REPORT Observed: 0 05/26/2025 8:01 PM Status: F Source: [facility] Narrative Physician Clinical Narrative [address] [address] [id number] 05/26/2025 20:01:00 Patient: TOR BERMAN Sex: Female : 1990 Age: 34y Disposition: Discharge to Home Disposition Decision Time: 22:11 05/26/2025 Departure Time: 22:30 05/26/2025 Measurements Wt: 52.2 kg, Ht/Aden: 65.0 in, BMI: 19.14 Initial Vital Sign Measured Time BP MAP HR RR O2Sat ETCO2 Temp Pain GCS RTS 20:06 05/26/2025 115/80 92 75 Time Seen: 19:56 05/26/2025. Arrived- By private vehicle. Historian- patient. HISTORY OF PRESENT ILLNESS Chief Complaint: FLANK PAIN. It is described as located in the left flank. This started yesterday Has left-sided nephrostomy tube. Recently diagnosed with stones in that left kidney. Follows with a urologist that can [place]. At its maximum, severity described as 7 / 10. When seen in the E.D., severity described as 6 / 10. The patient has had nausea. No vomiting or diarrhea. Similar symptoms previously. Patient has had similar symptoms many times. Recent medical care: The patient was seen recently at this facility. REVIEW OF SYSTEMS 1 of 11 Narrative CONSTITUTIONAL: No fever or chills. The patient has not had weight loss. NEUROLOGICAL: No headache. EYES: No blurred vision. : The patient has had difficulty with urination. No pain with urination or urinary frequency. CVS: No chest pain. RESPIRATORY: No difficulty breathing or cough. MUSCULOSKELETAL: No joint pain. The patient has had back pain. SKIN: No skin rash. THROAT: No sore throat. GI: No constipation, black stools or hematemesis. Status: Not . PAST HISTORY See nurses notes. Anxiety disorder Cancer: (stage 3 cervicle. Currently in remission) Depression Renal Failure: (Left kidney only) Surgeries: cervicle biopsy nephrostomy tube Medications: lexapro: 20 mg once a day . Lorazepam Intensol 2 mg/mL oral concentrate: 1 mg three times a day . oxycodone 10 mg tablet: 10 mg every 6 hours . zofran: 4 mg every 6 hours . Allergies: Haldol Penicillins SOCIAL HISTORY Never smoker. No alcohol use or drug use. ADDITIONAL NOTES The nursing notes have been reviewed. 2 of 11 Narrative PHYSICAL EXAM Appearance: Alert. Oriented X3. Appears to be in pain. Eyes: Pupils equal, round and reactive to light. ENT: Nose normal. Dry mucous membranes present. Pharynx normal. Neck: Normal inspection. Neck supple. CVS: Normal heart rate and rhythm. Heart sounds normal. Pulses normal. Respiratory: No respiratory distress. Breath sounds normal. Chest nontender. Abdomen: Soft and nontender. Bowel sounds normal. No mass. Skin: Skin warm and dry. No rash. Extremities: Extremities exhibit normal ROM. No lower extremity edema. Neuro: Oriented X 3. No motor deficit. No sensory deficit. LABS, X-RAYS, AND EKG CT Abdomen - Pelvis: Nephrostomy catheter in good position. Mild left hydroureter. Numerous calcifications within the left lower pelvis unchanged over multiple prior studies. Most of these are favored to represent phleboliths as detailed above. 4 mm calcification within the left low pelvis. This eyes within or immediately adjacent to left ureter image 96 series 2 today image 52 series 6 on the study of 05/03/2025. The patient has many additional comparison studies. When this study is compared to 11/06/2024 this calcification is seen in precise in the same position image 57 of series 2. This makes it much more likely that is actually vascular calcification adjacent to that ureter rather than a kaylie dana ureteral stone. There are multiple additional possible phleboliths within the left lower pelvis which are also unchanged in position. The patient's nephrostomy catheter is in good position. There is very modest dilatation of left ureter. There is no significant left hydronephrosis. Lung bases are clear. No pleural effusion. Liver gallbladder normal. Pancreas spleen normal. Adrenals right kidney right urinary bladder normal. Interpretation time: 20:48 05/26/2025. Laboratory Tests: CBC + DIFF Final BINA: 05/26/2025 20:30:00 EDT MsgRcvd: 05/26/2025 21:00 EDT Lab Test Result Reference Status Received Comments 3 of 11 Narrative Lab Test Result Reference Status Received Comments 05/26/2025 21:00 CBC-COMPLETE CBC + DIFF Final EDT BLOOD COUNT 05/26/2025 21:00 WBC 9.1 x 10/UL 4.5 - 10.8 Final EDT 3.55 x 10/UL 05/26/2025 21:00 RBC 4.10 - 5.30 Final Below low normal EDT 05/26/2025 21:00 HEMOGLOBIN 12.1 g/dl 12.0 - 16.0 Final EDT 05/26/2025 21:00 HEMATOCRIT 34.1 % 34.0 - 46.0 Final EDT 05/26/2025 21:00 MCV 96 fl 80 - 99 Final EDT 34 pg 05/26/2025 21:00 MCH 27 - 33 Final Above high normal EDT 05/26/2025 21:00 MCHC 36 X10 3 32 - 36 Final EDT 05/26/2025 21:00 RDW/CV 14.1 % 12.0 - 15.6 Final EDT 05/26/2025 21:00 PLATELET 372 x10/UL 150 - 450 Final EDT 05/26/2025 21:00 AUTOMATED MPV 6.7 fl 6.6 - 10.5 Final EDT DIFFERENTIAL 05/26/2025 21:00 NEUT % 60.3 % 46.0 - 76.0 Final EDT 05/26/2025 21:00 LYMPH % 29.1 % 20.0 - 45.0 Final EDT 4 of 11 Narrative Lab Test Result Reference Status Received Comments 05/26/2025 21:00 MONOS % 7.1 % 0.0 - 10.0 Final EDT 05/26/2025 21:00 EO % 3.1 % 0.0 - 7.0 Final EDT 05/26/2025 21:00 BASO % 0.4 % 0.0 - 2.0 Final EDT 05/26/2025 21:00 Lymph # 2.66 x10/UL 0.80 - 2.80 Final EDT 05/26/2025 21:00 Neut # 5.51 x10/UL 1.50 - 7.10 Final EDT 05/26/2025 21:00 Green # 0.65 x10/UL 0.20 - 1.00 Final EDT 05/26/2025 21:00 EO # 0.28 x10/UL 0.00 - 0.50 Final EDT 05/26/2025 21:00 Baso # 0.04 x10/UL 0.00 - 0.10 Final EDT 05/26/2025 21:00 MANUAL DIFF N/A New Order EDT 05/26/2025 21:00 MORPHOLOGY N/A New Order EDT LACTATE Final BINA: 05/26/2025 20:30:00 EDT MsgRcvd: 05/26/2025 21:12 EDT Lab Test Result Reference Status Received Comments 05/26/2025 21:12 LACTATE 0.8 mmol/L 0.4 - 2.0 Final EDT 5 of 11 Narrative SERUM QUAL Final BINA: 05/26/2025 20:30:00 EDT MsgRcvd: 05/26/2025 21:25 EDT Lab Test Result Reference Status Received Comments 05/26/2025 21:25 NEGATIVE NEGATIVE Final SER EDT 05/26/2025 21:25 INTERNAL QC PASS Final EDT EXTERNAL QC 05/26/2025 21:25 YES Final DONE? EDT URINALYSIS Final BINA: 05/26/2025 20:30:00 EDT MsgRcvd: 05/26/2025 21:24 EDT Lab Test Result Reference Status Received Comments 05/26/2025 21:24 URINALYSIS Final URINALYSIS EDT 05/26/2025 21:24 Specimen Type R New Order EDT NORMAL: 05/26/2025 21:24 Color yellow Final YELLOW EDT NORMAL: 05/26/2025 21:24 Clarity [email or web address] Final CLEAR EDT NORMAL: 05/26/2025 21:24 ph 8 Final 5.0-8.0 EDT 100 NORMAL: 05/26/2025 21:24 Protein Final Abnormal NEGATIVE EDT NORMAL: 05/26/2025 21:24 Glucose NORM Final NORMAL EDT 6 of 11 Narrative Lab Test Result Reference Status Received Comments NORMAL: 05/26/2025 21:24 Ketone NEG Final NEGATIVE EDT NORMAL: 05/26/2025 21:24 Bilirubin NEG Final NEGATIVE EDT 150 NORMAL: 05/26/2025 21:24 Blood Final Abnormal NEGATIVE EDT NORMAL: 05/26/2025 21:24 Urobilinog NORM Final NORMAL EDT NORMAL: 05/26/2025 21:24 Sp Stem 1.010 Final 1.010-1.030 EDT NORMAL: 05/26/2025 21:24 Nitrite POS Final NEGATIVE EDT 500 NORMAL: 05/26/2025 21:24 Leukocytes Final Abnormal NEGATIVE EDT 05/26/2025 21:24 Microscopic SEE BELOW Final MICROSCOPIC EDT 05/26/2025 21:24 Wbc 11-15 0-5/hpf Final EDT 05/26/2025 21:24 Rbc 0-5 0-3/hpf Final EDT 05/26/2025 21:24 Casts NONE Final EDT 05/26/2025 21:24 Crystals SEE BELOW Final EDT 05/26/2025 21:24 Triple Phos 1+ NORMAL: NONE Final EDT 7 of 11 Narrative Lab Test Result Reference Status Received Comments 05/26/2025 21:24 Amorphous 2+ Final EDT 05/26/2025 21:24 Bacteria 3+ Final EDT 05/26/2025 21:24 Epi Cells OCC Final EDT 05/26/2025 21:24 Mucous NONE Final EDT 05/26/2025 21:24 Yeast NONE Final EDT CMP with eGFR Final BINA: 05/26/2025 20:30:00 EDT MsgRcvd: 05/26/2025 22:10 EDT Lab Test Result Reference Status Received Comments COMPREHENSIVE 05/26/2025 CMP with eGFR Final METABOLIC 22:10 EDT PANEL 05/26/2025 SODIUM 141 mmol/l 136 - 145 Final 22:10 EDT 05/26/2025 POTASSIUM 4.1 mmol/L 3.5 - 5.1 Final 22:10 EDT 05/26/2025 CHLORIDE 106 mmol/L 98 - 107 Final 22:10 EDT 05/26/2025 CO2 21.5 mmol/L 21.0 - 32.0 Final 22:10 EDT 05/26/2025 GLUCOSE 101 mg/dl 74 - 106 Final 22:10 EDT 8 of 11 Narrative Lab Test Result Reference Status Received Comments 05/26/2025 BUN 13 mg/dl 7 - 18 Final 22:10 EDT 1.17 mg/dl 05/26/2025 CREATININE Above high 0.55 - 1.02 Final 22:10 EDT normal 05/26/2025 AST/SGOT 14 U/L 13 - 39 Final 22:10 EDT 05/26/2025 ALK PHOS 66 U/L 46 - 116 Final 22:10 EDT 05/26/2025 CALCIUM 8.7 mg/dl 8.5 - 10.1 Final 22:10 EDT TOTAL 05/26/2025 6.6 g/dl 6.4 - 8.2 Final PROTEIN 22:10 EDT 05/26/2025 ALBUMIN 3.7 g/dL 3.4 - 5.0 Final 22:10 EDT 05/26/2025 GLOBULIN 2.9 G/DL 1.5 - 3.8 Final 22:10 EDT 05/26/2025 A/G RATIO 1.3 0.9 - 1.6 Final 22:10 EDT 05/26/2025 TOTAL BILI 0.2 mg/dl 0.2 - 1.0 Final 22:10 EDT 05/26/2025 B/C RATIO 11 ratio 0 - 30 Final 22:10 EDT 05/26/2025 ALT/SGPT 17 U/L 16 - 63 Final 22:10 EDT 05/26/2025 ANION GAP 18 mmol/L 10 - 20 Final 22:10 EDT 9 of 11 Narrative Lab Test Result Reference Status Received Comments 05/26/2025 AGE 34 years Final 22:10 EDT 52 ML/MINUTE 05/26/2025 eGFR 60 - 999 Final Below low normal 22:10 EDT ACCORDING TO THE NATIONAL KIDNEY DISEASE EDUCATION PROGRAM(NKDE), A NORMAL eGFR IS A VALUE GREATER THAN OR EQUAL TO 60 ML/MIN/1.73 SQ METERS. 05/26/2025 CHRONIC KIDNEY eGFR(AA) >60 ML/MINUTE 60 - 999 Final 22:10 EDT DISEASE: <60mL/MIN/1.73 SQ METERS KIDNEY FAILURE: <15mL/MIN/1.73 SQ METERS THIS TEST SHOULD ONLY BE USED FOR PATIENTS 18 YEARS OF AGE AND OLDER. PROGRESS AND PROCEDURES Narrative MEDICAL DECISION MAKING: Ordered tests include a CT of the abdomen and pelvis, complete blood count, chemistries and urinalysis. The patient has been stable. IV fluids and non- narcotics have been given and antiemetics have been given. (Patient used to see Dr. Jimenez for Urology over [facility]. But she is now seeing similar Urology. She has her 2nd appointment this coming Friday and she tells me they are going to schedule her at that time for a left nephrectomy.). Disposition: Condition: good. Disposition Decision Time: 22:11 05/26/2025. Patient discharged to Home. Discharged in good condition. Discharge decision based on the following: patient's condition is stable; patient is ambulatory; patient's pain is controlled; patient's exam is stable; moderately abnormal test results; stable condition on multiple repeat evaluations; social support is adequate; transportation is available; follow-up is available; clinical impression is consistent with outpatient treatment. CLINICAL IMPRESSION Acute urinary tract infection with cystitis associated with indwelling catheter. No hematuria. DISCHARGE INSTRUCTIONS (Urine culture is pending. Take medication as prescribed. Follow-up with your urologist at [facility] on Friday as scheduled. Urine culture results will be back in approximately 48 hours.). Understanding of the discharge instructions verbalized by patient. Follow-up with: [facility], Phone: [phone], [address], [address] [id number]. Follow up in four days as scheduled. Summary of care provided to patient. (Electronically signed by Gonzalez Pineda D.O. 05/27/25 01:26:52 EDT) Generated by [facility] ED MED ADMINISTRATION DETAIL Observed: 0 05/26/2025 8:01 PM Status: F Source: [facility] Counter Top Maker Medication Administration Record [address] [place] [address] [id number] 05/26/2025 Patient: TOR BERMAN Sex: Female : 1990 Age: 34y MEASUREMENTS: Wt: 52.2 kg, Ht/Aden: 65.0 in, BMI: 19.14 ALLERGIES: Haldol, Penicillins Medication Ordered Medication Administration Date/Time IV NS 0.9 % 1000 20:40 05/26 IV NS 0.9 % 1000 mL started in bag#1 1000 mL at Started mL at 999 mL/hr 999 mL/hr via Site# 1. - 20:40 Tadeo Tejeda R.N. 20:40 05/26/2025 (NOW x1) Tadeo Tejeda, 21:15 05/26 Medication Discontinued: bag #1 infused. Total R.N. amount infused: 1000 mL. IV patency established. IV site checked: Stopped no pain, redness, or swelling. IV flushed thoroughly post-medication 21:15 05/26/2025 administration. - 21:16 Yohana Ahuja R.N. Scanned KetorOLAC 20:41 05/26 KetorOLAC (Toradol) IVP 15 mg given via Site# 1. Given (Toradol) IVP 15 mg Medication Wastage: 15 mg wasted. - 20:41 Tadeo Tejeda, 20:41 05/26/2025 (NOW x1) Yohana Tejeda R.N. Scanned Ondansetron IVP 4 20:41 05/26 Ondansetron IVP 4 mg given via Site# 1. - 20:42 Given mg (NOW x1) Tadeo Tejeda R.N. 20:41 05/26/2025 Tadeo Tejeda R.N. Scanned 1 of 4 Counter Top Maker Medication Ordered Medication Administration Date/Time KetorOLAC 21:13 05/26 KetorOLAC (Toradol) IVP 15 mg given via Site# 1. Given (Toradol) IVP 15 mg Allergies verified and confirmed 5 rights. IV patency established. IV 21:13 05/26/2025 (NOW x1) site checked: no pain, redness, or swelling. IV flushed thoroughly Louis Darden R.N. pre-medication administration. IVP given by nurse. Information Scanned reviewed with patient including reason for taking this medication. Verbalizes understanding. (06/12/). Medication Wastage: 15 mg wasted. - 21:15 Louis Darden R.N. Ondansetron IVP 4 21:37 05/26 Ondansetron IVP 4 mg given via Site# 1. Allergies Given mg (NOW x1) verified and confirmed 5 rights. IV patency established. IV site 21:37 05/26/2025 checked: no pain, redness, or swelling. IV flushed thoroughly Louis Darden R.N. pre-medication administration. IVP given by nurse. Information Scanned reviewed with patient including reason for taking this medication. Verbalizes understanding. - 21:39 Louis Darden R.N. MORPHine IVP 2 Completed mg 21:35 05/26/2025 Louis Darden R.N. Order Comments: 21:35 05/26/2025 Order morphine 2mg iv given for 06/12 bilateral flank painCompleted. Louis Darden R.N. 2 of 4 Counter Top Maker Medication Ordered Medication Administration Date/Time cefTRIAXone 21:50 05/26 cefTRIAXone Started (Rocephin) IVPB (Rocephin) IVPB 1gm/50ml NS 1 21:50 05/26/2025 1gm/50ml NS 1 g g started at 100 mL/hr diluted in Louis Darden R.N. diluted in sodium sodium chloride IVPB 0.9 % Stopped chloride IVPB 0.9 % Minibag+ 50 mL via Site# 1. 22:06 05/26/2025 Minibag+ 50 mL at Allergies verified and confirmed Louis Darden R.N. 100 mL/hr (NOW x1) 5 rights. Via dial-a-flow. IV Scanned patency established. IV site checked: no pain, redness, or swelling. IV flushed thoroughly pre-medication administration. Information reviewed with patient including reason for taking this medication. Verbalizes understanding. - 21:51 Louis Darden R.N. 22:06 05/26 Medication Discontinued: IV infused. Total amount infused: 50 mL. IV patency established. IV site checked: no pain, redness, or swelling. IV flushed thoroughly post-medication administration. - 22:11 Louis Darden R.N. 3 of 4 Counter Top Maker Medication Ordered Medication Administration Date/Time HYDROmorphone 22:17 05/26 HYDROmorphone Given (Dilaudid) IVP 0.5 (Dilaudid) IVP 0.5 mg given via 22:05/26/2025 mg (NOW x1, HIGH Site# 1. Allergies verified and Louis Darden R.N. ALERT confirmed 5 rights. IV patency Scanned MEDICATION) established. IV site checked: no pain, redness, or swelling. IV flushed thoroughly pre-medication administration. IVP given by nurse. Information reviewed with patient including reason for taking this medication. Verbalizes understanding. ( bilateral flank pain). Medication Wastage: 0.5 mg wasted. - 22:20 Louis Darden R.N. 4 of 4 ED VISIT SUMMARY Observed: 05/26/2025 8:01 PM Status: F Source: [facility] Visit Overview Visit Overview [address] [place] [address] [id number] 05/26/2025 Patient: TOR BERMAN Sex: Female : 1990 Age: 34y 05/27/2025 01:26 AM EDT ED Arrival:20:01 05/26/2025 EDT Status:not Recent Travel:no Language:eng Adv Directive:No Isolation Status: Ethnicity:N Fall Risk:no risk Infectious Disease Exposure:no Measurements:5'5" / 165.1 Self-Harm Status:risk Sepsis Screen:negative cm 115.0 lb / 52.2 kg Chief Complaint:ABDOMINAL PAIN, NAUSEA, and (2 days ago) ALLERGIES Haldol Penicillins HOME MEDICATIONS lexapro: 20 mg once a day . Lorazepam Intensol 2 mg/mL oral concentrate: 1 mg three times a day . oxycodone 10 mg tablet: 10 mg every 6 hours . zofran: 4 mg every 6 hours . 1 of 3 Visit Overview PAST MEDICAL HISTORY / PROBLEMS Anxiety disorder Cancer. (stage 3 cervicle. Currently in remission) Depression Renal Failure. (Left kidney only) See nurses notes PAST SURGICAL HISTORY nephrostomy tube SOCIAL HISTORY Smoking status: Unknown Alcohol use: No Drug use: Yes ED COURSE MEDICATIONS GIVEN IN EMERGENCY DEPARTMENT 20:40 05/26/25 IV NS 0.9 % 1000 mL 999 mL/hr 20:41 05/26/25 KetorOLAC (Toradol) IVP 15 mg 20:41 05/26/25 Ondansetron IVP 4 mg 21:13 05/26/25 KetorOLAC (Toradol) IVP 15 mg 21:37 05/26/25 Ondansetron IVP 4 mg cefTRIAXone (Rocephin) IVPB 1gm/50ml NS 1 g diluted in sodium chloride IVPB 0.9 % 21:50 05/26/25 Minibag+ 50 mL 100 mL/hr 22:17 05/26/25 HYDROmorphone (Dilaudid) IVP 0.5 mg IV SITE INFORMATION INTAKE OUTPUT REASSESMENT (most recent) 22:25 05/26/25. ( pt medicated for 8-910 bilateral flank pain prior to discharge, pt states she has her father outside waiting on her to be discharged and will drive her home.). 2 of 3 Visit Overview VITAL SIGNS First Vitals Last Vitals Temp 20:06 05/26/25 Temp 22:30 05/26/25 BP 20:06 05/26/25 115/80 BP 22:30 05/26/25 HR 20:06 05/26/25 75 HR 22:30 05/26/25 RR 20:06 05/26/25 RR 22:30 05/26/25 16 O2 Sat 20:06 05/26/25 O2 Sat 22:30 05/26/25 Pain 20:06 05/26/25 Pain 22:30 05/26/25 0 ETCO2 20:06 05/26/25 ETCO2 22:30 05/26/25 GCS 20:06 05/26/25 GCS 22:30 05/26/25 RTS 20:06 05/26/25 RTS 22:30 05/26/25 PROCEDURES NURSING INTERVENTIONS LABS / STUDIES LABS / STUDIES ORDERED CBC w Diff CMP CT KUB (Kidney stone) HCG, Qual Serum Lactate, Serum Urinalysis Urine Culture [CCL] CLINICAL IMPRESSION ACUTE URINARY TRACT INFECTION WITH CYSTITIS ASSOCIATED WITH INDWELLING CATHETER. NO HEMATURIA 3 of 3 CBC Collected: 10:20 PM Status: F Source: [facility] MA[facility] TYPE CODE TESTS RESULT OUT OF RANGE REFERENCE UNITS LAB WBC(LOINC) WBC 10.3 4.5-10.8 10 3/mcL LAB RBCCT(LOINC) RBC 4.29 4.10-5.30 10 6/mcL LAB HGB(LOINC) Hgb 14.1 12.0-16.0 G/dL LAB HCT(LOINC) Hct 41.5 34.0-46.0 % LAB MCV(LOINC) MCV 96.7 80.0-99.0 fL LAB MCH(LOINC) MCH 32.9 27.0-33.0 pg LAB MCHC(LOINC) MCHC 34.0 32.0-36.0 G/dL LAB RDW(LOINC) RDW 15.6 High 11.5-15.5 % LAB PLT(LOINC) Platelet 431 150-450 10 3/mcL LAB MPV(LOINC) MPV 7.1 6.6-10.5 fL Performed By: #### CBC, ADIF F, ANEU, MDW, BMP, GFR #### [place] [id number] .AUTO DIFF Collected: 05/25/2025 10:20 PM Status: F Source: [facility] MA[facility] TYPE CODE TESTS RESULT OUT OF RANGE REFERENCE UNITS LAB GREGORIA(LOINC) Neutrophil % 61.9 50.0-75.0 % LAB LYM(LOINC) Lymphocyte % 27.0 20.0-40.0 % LAB MON(LOINC) Monocyte % 8.0 2.0-13.0 % LAB EO(LOINC) Eosinophil % 1.8 0.0-6.0 % LAB BAS(LOINC) Basophil % 1.3 0.0-2.5 % LAB ABLYM(LOINC) Lymphocyte, Absolute 2.8 0.9-4.3 10 3/mcL LAB MIKEY(LOINC) Monocyte, Absolute 0.8 0.1-1.4 10 3/mcL LAB AEOS(LOINC) Eosinophil, Absolute 0.2 0.0-0.7 10 3/mcL LAB ABAS(LOINC) Basophil, Absolute 0.1 0.0-0.3 10 3/mcL Performed By: #### CBC, ADIF F, ANEU, MDW, BMP, GFR #### [address] [id number] .NEUABS Collected: 10:20 PM Status: F Source: [facility] MA[facility] TYPE CODE TESTS RESULT OUT OF RANGE REFERENCE UNITS LAB ANEU(LOINC) Neutrophil, Absolute 6.4 2.3-8.1 10 3/mcL Performed By: #### CBC, ADIF F, ANEU, MDW, BMP, GFR #### [address] [address] .MDW Collected: 05/25/2025 10:20 PM Status: F Source: [facility] MA[facility] TYPE CODE TESTS RESULT OUT OF RANGE REFERENCE UNITS LAB MDW(LOINC) Monocyte Distribution Width 21.37 High 0.00-20.00 Result Comment: For adults i n ED, MDW>20.0 may be associated with a higher risk of sepsis during the first 12hrs of hospital admission Performed By: #### CBC, ADIF F, ANEU, MDW, BMP, GFR #### [place] [address] BMP Collected: 05/25/2025 10:20 PM Status: F Source: [facility] MA[facility] TYPE CODE TESTS RESULT OUT OF RANGE REFERENCE UNITS LAB GLU(LOINC) Glucose Level 92 70-110 mg/dL LAB NA(LOINC) Sodium Level 140 136-145 mEq/L LAB K(LOINC) Potassium Level 4.0 3.5-5.0 mEq/L Result Comment: Specimen sli ghtly hemolyzed. LAB CL(LOINC) Chloride 108 98-110 mEq/L LAB CO2(LOINC) CO2 26 22-32 mEq/L LAB EBAL(LOINC) Electrolyte Balance 6.0 4.0-15.0 mEq/L LAB BUN(LOINC) BUN 7.0 Low 8.0-22.0 mg/dL LAB CRE(LOINC) Creatinine Lvl (s) 0.94 0.50-1.20 mg/dL Result Comment: Testing perf ormed on [employer] Mobile analyzer using enzymatic creatinine methodology. LAB BC(LOINC) BUN/Creatinine Ratio 7.4 Low 10.0-22.0 ratio LAB CA(LOINC) Calcium Lvl 9.6 8.7-10.4 mg/dL Performed By: #### TIFFANIE VERNON, YOUNG LEVI, BMP, GFR #### [address] [address] .GFR Collected: 10:20 PM Status: F Source: [facility] MA[facility] TYPE CODE TESTS RESULT OUT OF RANGE REFERENCE UNITS LAB eGFR(LOINC) Estimated Glomerular Filtration Rate 81 ml/min/1. 73sqm Result Comment: Stages of Chronic Kidney Disease [...] calculate the eGFR results. Performed By: #### TIFFANIE VERNON, YOUNG LEVI, BMP, GFR #### [address] [address] UA Collected: 05/25/2025 10:20 PM Status: F Source: [facility] MA[facility] TYPE CODE TESTS RESULT OUT OF RANGE REFERENCE UNITS LAB SPCUA(LOINC) UA Specimen Type Clean Catch LAB CLRUA(LOINC) UA Color Yellow LAB APPUA(LOINC) UA Appear Clear Clear LAB SGUA(LOINC) UA Spec Grav 1.010 1.006-1.029 LAB GLUA(LOINC) UA Glucose Negative Negative mg/dL LAB BILUA(LOINC) UA Bili Negative Neg-Trace LAB KETUA(LOINC) UA Ketones Negative Neg-Trace mg/dL LAB BLDUA(LOINC) UA Blood Negative Neg-Trace LAB PHUA(LOINC) UA pH 8.0 5.0 - 8.0 LAB PROUA(LOINC) UA Protein Negative Negative mg/dL LAB UROUA(LOINC) UA Urobilinogen 1.0 0.2-1.0 E.U ./dL LAB NITUA(LOINC) UA Nitrite Negative Negative LAB LEUUA(LOINC) UA Leuk Est Negative Negative Performed By: #### UA #### [place] [id number] [place] [address] CT ABDOMEN/PELVIS W/O CONTRAST Observed: 05/25/2025 9:12 PM Status: F Source: [facility] MAIN ORIGINAL EXAMINATION: CT OF THE ABDOMEN AND [...] multiple left distal ureteral calculi. 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 Spoke to patient, appt scheduled 05/26/[address] Fonseca in [place]. CT ABDOMEN/PELVIS W/O CONTRAST Observed: 05/09/2025 1:30 AM Status: F Source: [facility] MAIN ORIGINAL EXAMINATION: CT OF THE ABDOMEN AND [...] ureter is mildly dilated. Interpreted by: Juventino Loja MD Preliminary Report By: Juventino Loja MD Electronically signed By Juventino Loja MD Dictated Date: 05/09/2025 1:40:51 AM Prelim Date: 05/09/2025 1:46:35 AM Sign Date: 05/09/2025 1:46:35 AM Ordering Provider: JASKARAN MEDRANO Interpreted by: Juventino Loja MD Preliminary Report By: Juventino Loja MD Electronically signed By Juventino Loja MD Dictated Date: 05/09/2025 1:40:51 AM Prelim Date: 05/09/2025 1:46:35 AM Sign Date: 05/09/2025 1:46:35 AM Ordering Provider: JASKARAN MEDRANO UA Collected: 05/09/2025 12:32 AM Status: F Source: [facility] MA[facility] TYPE CODE TESTS RESULT OUT OF RANGE REFERENCE UNITS LAB SPCUA(LOINC) UA Specimen Type Void LAB CLRUA(LOINC) UA Color Yellow LAB APPUA(LOINC) UA Appear Clear Clear LAB SGUA(LOINC) UA Spec Grav <=1.005 Abnormal 1.006-1.029 LAB GLUA(LOINC) UA Glucose Negative Negative mg/dL LAB BILUA(LOINC) UA Bili Negative Neg-Trace LAB KETUA(LOINC) UA Ketones Negative Neg-Trace mg/dL LAB BLDUA(LOINC) UA Blood Trace Neg-Trace LAB PHUA(LOINC) UA pH 8.5 Abnormal 5.0 - 8.0 LAB PROUA(LOINC) UA Protein Trace Negative mg/dL LAB UROUA(LOINC) UA Urobilinogen 0.2 0.2-1.0 E.U ./dL LAB NITUA(LOINC) UA Nitrite Negative Negative LAB LEUUA(LOINC) UA Leuk Est Large Abnormal Negative Performed By: #### UA, UAMIC #### [place] [address] UAMIC Collected: 05/09/2025 12:32 AM Status: F Source: [facility] MA[facility] TYPE CODE TESTS RESULT OUT OF RANGE REFERENCE UNITS LAB RBCUA(LOINC) UA RBC 0-2 0-2 /hpf LAB WBCUA(LOINC) UA WBC 5-10 Abnormal 0-5 /hpf LAB EPIUA(LOINC) UA Squam Epithelial 0-2 0-20 /hpf LAB MUCUA(LOINC) UA Mucous Trace /hpf LAB BACUA(LOINC) UA Bacteria Trace Abnormal Negative /hpf Performed By: #### UA, UAMIC #### [place] [address] CBC Collected: 12:29 AM Status: F Source: [facility] MA[facility] TYPE CODE TESTS RESULT OUT OF RANGE REFERENCE UNITS LAB WBC(LOINC) WBC 8.7 4.5-10.8 10 3/mcL LAB RBCCT(LOINC) RBC 3.73 Low 4.10-5.30 10 6/mcL LAB HGB(LOINC) Hgb 12.0 12.0-16.0 G/dL LAB HCT(LOINC) Hct 35.4 34.0-46.0 % LAB MCV(LOINC) MCV 95.0 80.0-99.0 fL LAB MCH(LOINC) MCH 32.3 27.0-33.0 pg LAB MCHC(LOINC) MCHC 33.9 32.0-36.0 G/dL LAB RDW(LOINC) RDW 15.0 11.5-15.5 % LAB PLT(LOINC) Platelet 347 150-450 10 3/mcL LAB MPV(LOINC) MPV 6.9 6.6-10.5 fL Performed By: #### CBC, ADIF F, ANEU, MDW, LIP, CMP, GFR #### [address] [address] .AUTO DIFF Collected: 05/09/2025 12:29 AM Status: F Source: [facility] MA[facility] TYPE CODE TESTS RESULT OUT OF RANGE REFERENCE UNITS LAB GREGORIA(LOINC) Neutrophil % 61.9 50.0-75.0 % LAB LYM(LOINC) Lymphocyte % 27.3 20.0-40.0 % LAB MON(LOINC) Monocyte % 7.9 2.0-13.0 % LAB EO(LOINC) Eosinophil % 1.9 0.0-6.0 % LAB BAS(LOINC) Basophil % 1.0 0.0-2.5 % LAB ABLYM(LOINC) Lymphocyte, Absolute 2.4 0.9-4.3 10 3/mcL LAB MIKEY(LOINC) Monocyte, Absolute 0.7 0.1-1.4 10 3/mcL LAB AEOS(LOINC) Eosinophil, Absolute 0.2 0.0-0.7 10 3/mcL LAB ABAS(LOINC) Basophil, Absolute 0.1 0.0-0.3 10 3/mcL Performed By: #### CBC, ADIF F, ANEU, MDW, LIP, CMP, GFR #### [place] [address] .NEUABS Collected: 12:29 AM Status: F Source: [facility] MA[facility] TYPE CODE TESTS RESULT OUT OF RANGE REFERENCE UNITS LAB ANEU(LOINC) Neutrophil, Absolute 5.4 2.3-8.1 10 3/mcL Performed By: #### CBC, ADIF F, ANEU, MDW, LIP, CMP, GFR #### [place] [address] .MDW Collected: 05/09/2025 12:29 AM Status: F Source: [facility] TYPE CODE TESTS RESULT OUT OF RANGE REFERENCE UNITS LAB MDW(LOINC) Monocyte Distribution Width 19.78 0.00-20.00 Result Comment: For ED adult patients suspected of sepsis, MDW<=20.0 does not rule out sepsis or risk of sepsis Performed By: #### CBC, ADIF F, ANEU, MDW, LIP, CMP, GFR #### [place] [address] LIP Collected: 12:29 AM Status: F Source: [facility] MA[facility] TYPE CODE TESTS RESULT OUT OF RANGE REFERENCE UNITS LAB LIP(LOINC) Lipase Level 23 12-53 U/L Performed By: #### CBC, ADIF F, ANEU, MDW, LIP, CMP, GFR #### [place] [address] CMP Collected: 05/09/2025 12:29 AM Status: F Source: [facility] TYPE CODE TESTS RESULT OUT OF RANGE REFERENCE UNITS LAB GLU(LOINC) Glucose Level 93 70-110 mg/dL LAB NA(LOINC) Sodium Level 143 136-145 mEq/L LAB K(LOINC) Potassium Level 4.0 3.5-5.0 mEq/L LAB CL(LOINC) Chloride 103 98-110 mEq/L LAB CO2(LOINC) CO2 28 22-32 mEq/L LAB EBAL(LOINC) Electrolyte Balance 12.0 4.0-15.0 mEq/L LAB BUN(LOINC) BUN 8.0 8.0-22.0 mg/dL LAB CRE(LOINC) Creatinine Lvl (s) 0.86 0.50-1.20 mg/dL Result Comment: Testing perf ormed on [employer] Mobile analyzer using enzymatic creatinine methodology. LAB BC(LOINC) BUN/Creatinine Ratio 9.3 Low 10.0-22.0 ratio LAB CA(LOINC) Calcium Lvl 9.5 8.7-10.4 mg/dL LAB PROT(LOINC) Total Protein 6.6 5.7-8.2 G/dL LAB ALB(LOINC) Albumin Level 3.7 3.2-4.8 G/dL LAB GLB(LOINC) Globulin 2.9 2.5-4.2 G/dL LAB AG(LOINC) A/G Ratio 1.3 0.9-1.6 ratio LAB BILT(LOINC) Bili Total <0.20 0.20-1.20 mg/dL Result Comment: Use of this assay is not recommended for patients undergoing treatment with eltrombopag due to the potential for falsely elevated results. LAB AP(LOINC) Alk Phos 71 38-126 U/L LAB AST(LOINC) AST/SGOT 18 8-34 U/L LAB ALT(LOINC) ALT/SGPT 9 Low 10-49 U/L Performed By: #### CBC, ADIF F, ANEU, MDW, LIP, CMP, GFR #### [place] [address] .GFR Collected: 5 12:29 AM Status: F Source: [facility] MA[facility] TYPE CODE TESTS RESULT OUT OF RANGE REFERENCE UNITS LAB eGFR(LOINC) Estimated Glomerular Filtration Rate 90 ml/min/1. 73sqm Result Comment: Stages of Chronic Kidney Disease [...] calculate the eGFR results. Performed By: #### CBC, ADIF F, ANEU, MDW, LIP, CMP, GFR #### [address] [address] CBC Collected: 7:26 AM Status: F Source: [facility] MA[facility] TYPE CODE TESTS RESULT OUT OF RANGE REFERENCE UNITS LAB WBC(LOINC) WBC 8.8 4.5-10.8 10 3/mcL LAB RBCCT(LOINC) RBC 3.73 Low 4.10-5.30 10 6/mcL LAB HGB(LOINC) Hgb 12.2 12.0-16.0 G/dL LAB HCT(LOINC) Hct 36.7 34.0-46.0 % LAB MCV(LOINC) MCV 98.4 80.0-99.0 fL LAB MCH(LOINC) MCH 32.8 27.0-33.0 pg LAB MCHC(LOINC) MCHC 33.4 32.0-36.0 G/dL LAB RDW(LOINC) RDW 15.4 11.5-15.5 % LAB PLT(LOINC) Platelet 318 150-450 10 3/mcL LAB MPV(LOINC) MPV 7.0 6.6-10.5 fL Performed By: #### CBC, ADIF F, ANEU, MG, GFR, BMP #### [address] [address] .AUTO DIFF Collected: 05/07/2025 7:26 AM Status: F Source: [facility] MA[facility] TYPE CODE TESTS RESULT OUT OF RANGE REFERENCE UNITS LAB GREGORIA(LOINC) Neutrophil % 64.2 50.0-75.0 % LAB LYM(LOINC) Lymphocyte % 22.6 20.0-40.0 % LAB MON(LOINC) Monocyte % 9.2 2.0-13.0 % LAB EO(LOINC) Eosinophil % 3.1 0.0-6.0 % LAB BAS(LOINC) Basophil % 0.9 0.0-2.5 % LAB ABLYM(LOINC) Lymphocyte, Absolute 2.0 0.9-4.3 10 3/mcL LAB MIKEY(LOINC) Monocyte, Absolute 0.8 0.1-1.4 10 3/mcL LAB AEOS(LOINC) Eosinophil, Absolute 0.3 0.0-0.7 10 3/mcL LAB ABAS(LOINC) Basophil, Absolute 0.1 0.0-0.3 10 3/mcL Performed By: #### CBC, ADIF F, ANEU, MG, GFR, BMP #### [place] [address] .NEUABS Collected: 7:26 AM Status: F Source: [facility] MA[facility] TYPE CODE TESTS RESULT OUT OF RANGE REFERENCE UNITS LAB ANEU(LOINC) Neutrophil, Absolute 5.7 2.3-8.1 10 3/mcL Performed By: #### CBC, ADIF F, ANEU, MG, GFR, BMP #### [place] [address] MG Collected: 05/07/2025 7:26 AM Status: F Source: [facility] MA[facility] TYPE CODE TESTS RESULT OUT OF RANGE REFERENCE UNITS LAB MG(LOINC) Magnesium Lvl 2.0 1.6-2.4 mg/dL Performed By: #### CBC, ADIF F, ANEU, MG, GFR, BMP #### [place] [address] .GFR Collected: 05/07/2025 7:26 AM Status: F Source: [facility] MA[facility] TYPE CODE TESTS RESULT OUT OF RANGE REFERENCE UNITS LAB eGFR(LOINC) Estimated Glomerular Filtration Rate 94 ml/min/1. 73sqm Result Comment: Stages of Chronic Kidney Disease [...] calculate the eGFR results. Performed By: #### CBC, ADIF F, ANEU, MG, GFR, BMP #### [address] [address] BMP Collected: 05/07/2025 7:26 AM Status: F Source: [facility] MA[facility] TYPE CODE TESTS RESULT OUT OF RANGE REFERENCE UNITS LAB GLU(LOINC) Glucose Level 91 70-110 mg/dL LAB NA(LOINC) Sodium Level 142 136-145 mEq/L LAB K(LOINC) Potassium Level 4.2 3.5-5.0 mEq/L LAB CL(LOINC) Chloride 109 98-110 mEq/L LAB CO2(LOINC) CO2 26 22-32 mEq/L LAB EBAL(LOINC) Electrolyte Balance 7.0 4.0-15.0 mEq/L LAB BUN(LOINC) BUN <5.0 Low 8.0-22.0 mg/dL LAB CRE(LOINC) Creatinine Lvl (s) 0.83 0.50-1.20 mg/dL Result Comment: Testing perf ormed on [employer] analyzer using enzymatic creatinine methodology. LAB BC(LOINC) BUN/Creatinine Ratio Unable to Calculate 10.0-22.0 ratio Result Comment: Unable to ca lculate this test result accurately. Results used to calculate this test are outside the reportable range. LAB CA(LOINC) Calcium Lvl 9.0 8.7-10.4 mg/dL Performed By: #### CBC, ADIF F, ANEU, MG, GFR, BMP #### [address] [address] IR NEPHROSTOMY TUBE Observed: 05/05/2025 5:15 PM Status: F Source: [facility] MAIN ORIGINAL PROCEDURE: INTRODUCTION-12 Bulgarian left NEPHRO TUBE via previously established tract [...] wire recanalization of previously established tract, 5 Bulgarian catheter was advanced and antegrade nephrostogram was performed. Catheter was exchanged over stiff guidewire for new 12 Bulgarian nephrostomy catheter. Tip curled in left renal pelvis. Antegrade nephrostogram performed to confirm satisfactory tube position. Catheter affixed to the patient's skin. External drainage bag and dressing applied. Patient tolerated procedure well. No complication suggested. CONTRAST: 8 mL Isovue 300 SEDATION: Moderate sedation was ordered and supervised by the attending with physician [id number] monitoring. Medications were provided and recorded by Radiology nurses. See radiology nursing notes for further discussion. FLUOROSCOPY DOSE AND TYPE: Radiation Exposure Index: Kerma 6.68 mGy, 1.5 minutes fluoroscopy time for procedure DESCRIPTION OF PROCEDURE: Informed consent was obtained after a detailed explanation of the procedure including risks, benefits, and alternatives. [place] protocol was observed. Sterile gowns, masks, hats and gloves utilized for maximal sterile barrier. As above in technique section FINDINGS: Intraprocedural images demonstrate satisfactory caval is a diop of previously established tract into the left renal collecting system. Antegrade nephrostogram demonstrates mild left hydronephrosis. Postprocedure images demonstrate new 12 Bulgarian left nephrostomy tube tip curled in the left renal pelvis. No complication suggested. IMPRESSION: Replacement of previously dislodged left nephrostomy tube via previously established tract with new 12 Bulgarian nephrostomy catheter tip curled in the left renal pelvis. No complication suggested. Interpreted by: Clotilde Hernández DO Preliminary Report By: Clotilde Hernández DO Electronically signed By Clotilde Hernández DO Dictated Date: 05/05/2025 5:56:15 PM Prelim Date: 05/05/2025 5:58:35 PM Sign Date: 05/05/2025 5:58:35 PM Ordering Provider: ROD MACKEY Interpreted by: Clotilde Hernández DO Preliminary Report By: Clotilde Hernández DO Electronically signed By Clotilde Hernández DO Dictated Date: 05/05/2025 5:56:15 PM Prelim Date: 05/05/2025 5:58:35 PM Sign Date: 05/05/2025 5:58:35 PM Ordering Provider: ROD MACKEY CBC Collected: 5:58 AM Status: F Source: [facility] Order Comment: Routine for 0 501 the morning of patient admission. TYPE CODE TESTS RESULT OUT OF RANGE REFERENCE UNITS LAB WBC(LOINC) WBC 7.1 4.5-10.8 10 3/mcL LAB RBCCT(LOINC) RBC 3.49 Low 4.10-5.30 10 6/mcL LAB HGB(LOINC) Hgb 11.7 Low 12.0-16.0 G/dL LAB HCT(LOINC) Hct 33.8 Low 34.0-46.0 % LAB MCV(LOINC) MCV 96.8 80.0-99.0 fL LAB MCH(LOINC) MCH 33.5 High 27.0-33.0 pg LAB MCHC(LOINC) MCHC 34.6 32.0-36.0 G/dL LAB RDW(LOINC) RDW 15.5 11.5-15.5 % LAB PLT(LOINC) Platelet 350 150-450 10 3/mcL LAB MPV(LOINC) MPV 7.0 6.6-10.5 fL Performed By: #### CBC, ADIF F, ANEU #### [place] [address] .AUTO DIFF Collected: 05/05/2025 5:58 AM Status: F Source: [facility] MA[facility] TYPE CODE TESTS RESULT OUT OF RANGE REFERENCE UNITS LAB GREGORIA(LOINC) Neutrophil % 55.4 50.0-75.0 % LAB LYM(LOINC) Lymphocyte % 32.4 20.0-40.0 % LAB MON(LOINC) Monocyte % 8.2 2.0-13.0 % LAB EO(LOINC) Eosinophil % 3.0 0.0-6.0 % LAB BAS(LOINC) Basophil % 1.0 0.0-2.5 % LAB ABLYM(LOINC) Lymphocyte, Absolute 2.3 0.9-4.3 10 3/mcL LAB MIKEY(LOINC) Monocyte, Absolute 0.6 0.1-1.4 10 3/mcL LAB AEOS(LOINC) Eosinophil, Absolute 0.2 0.0-0.7 10 3/mcL LAB ABAS(LOINC) Basophil, Absolute 0.1 0.0-0.3 10 3/mcL Performed By: #### CBC, ADIF F, ANEU #### [address] [address] .NEUABS Collected: 5:58 AM Status: F Source: [facility] TYPE CODE TESTS RESULT OUT OF RANGE REFERENCE UNITS LAB ANEU(LOINC) Neutrophil, Absolute 3.9 2.3-8.1 10 3/mcL Performed By: #### CBC, ADIF F, ANEU #### [place] [address] BMP Collected: 05/05/2025 5:58 AM Status: F Source: [facility] Order Comment: Routine for 0 501 the morning of patient admission. TYPE CODE TESTS RESULT OUT OF RANGE REFERENCE UNITS LAB GLU(LOINC) Glucose Level 84 70-110 mg/dL LAB NA(LOINC) Sodium Level 142 136-145 mEq/L LAB K(LOINC) Potassium Level 4.1 3.5-5.0 mEq/L LAB CL(LOINC) Chloride 111 High 98-110 mEq/L LAB CO2(LOINC) CO2 22 22-32 mEq/L LAB EBAL(LOINC) Electrolyte Balance 9.0 4.0-15.0 mEq/L LAB BUN(LOINC) BUN 6.0 Low 8.0-22.0 mg/dL LAB CRE(LOINC) Creatinine Lvl (s) 0.91 0.50-1.20 mg/dL Result Comment: Testing perf ormed on [employer] analyzer using enzymatic creatinine methodology. LAB BC(LOINC) BUN/Creatinine Ratio 6.6 Low 10.0-22.0 ratio LAB CA(LOINC) Calcium Lvl 8.8 8.7-10.4 mg/dL Performed By: #### BMP, GFR #### [address] [address] .GFR Collected: 05/05/2025 5:58 AM Status: F Source: [facility] TYPE CODE TESTS RESULT OUT OF RANGE REFERENCE UNITS LAB eGFR(LOINC) Estimated Glomerular Filtration Rate 84 ml/min/1. 73sqm Result Comment: Stages of Chronic Kidney Disease [...] calculate the eGFR results. Performed By: #### BMP, GFR #### [address] [address] CBC Collected: 9:38 PM Status: F Source: [facility] TYPE CODE TESTS RESULT OUT OF RANGE REFERENCE UNITS LAB WBC(LOINC) WBC 7.5 4.5-10.8 10 3/mcL LAB RBCCT(LOINC) RBC 3.73 Low 4.10-5.30 10 6/mcL LAB HGB(LOINC) Hgb 12.6 12.0-16.0 G/dL LAB HCT(LOINC) Hct 35.2 34.0-46.0 % LAB MCV(LOINC) MCV 94.3 80.0-99.0 fL LAB MCH(LOINC) MCH 33.7 High 27.0-33.0 pg LAB MCHC(LOINC) MCHC 35.7 32.0-36.0 G/dL LAB RDW(LOINC) RDW 15.4 11.5-15.5 % LAB PLT(LOINC) Platelet 336 150-450 10 3/mcL LAB MPV(LOINC) MPV 6.6 6.6-10.5 fL Performed By: #### CBC, ADIF F, ANEU, MDW, GFR, BMP #### [address] [address] .AUTO DIFF Collected: 05/04/2025 9:38 PM Status: F Source: [facility] TYPE CODE TESTS RESULT OUT OF RANGE REFERENCE UNITS LAB GREGORIA(LOINC) Neutrophil % 61.8 50.0-75.0 % LAB LYM(LOINC) Lymphocyte % 28.8 20.0-40.0 % LAB MON(LOINC) Monocyte % 7.4 2.0-13.0 % LAB EO(LOINC) Eosinophil % 1.2 0.0-6.0 % LAB BAS(LOINC) Basophil % 0.8 0.0-2.5 % LAB ABLYM(LOINC) Lymphocyte, Absolute 2.2 0.9-4.3 10 3/mcL LAB MIKEY(LOINC) Monocyte, Absolute 0.6 0.1-1.4 10 3/mcL LAB AEOS(LOINC) Eosinophil, Absolute 0.1 0.0-0.7 10 3/mcL LAB ABAS(LOINC) Basophil, Absolute 0.1 0.0-0.3 10 3/mcL Performed By: #### CBC, ADIF F, ANEU, MDW, GFR, BMP #### [place] [address] .NEUABS Collected: 9:38 PM Status: F Source: [facility] TYPE CODE TESTS RESULT OUT OF RANGE REFERENCE UNITS LAB ANEU(LOINC) Neutrophil, Absolute 4.6 2.3-8.1 10 3/mcL Performed By: #### CBC, ADIF F, ANEU, MDW, GFR, BMP #### [place] [address] .MDW Collected: 05/04/2025 9:38 PM Status: F Source: [facility] TYPE CODE TESTS RESULT OUT OF RANGE REFERENCE UNITS LAB MDW(LOINC) Monocyte Distribution Width 19.63 0.00-20.00 Result Comment: For ED adult patients suspected of sepsis, MDW<=20.0 does not rule out sepsis or risk of sepsis Performed By: #### CBC, ADIF F, ANEU, MDW, GFR, BMP #### [place] [address] .GFR Collected: 05/04/2025 9:38 PM Status: F Source: [facility] TYPE CODE TESTS RESULT OUT OF RANGE REFERENCE UNITS LAB eGFR(LOINC) Estimated Glomerular Filtration Rate 83 ml/min/1. 73sqm Result Comment: Stages of Chronic Kidney Disease [...] calculate the eGFR results. Performed By: #### JANEEN ADGURMEET PERALES MDW, GFR, BMP #### [address] [address] BMP Collected: 05/04/2025 9:38 PM Status: F Source: [facility] TYPE CODE TESTS RESULT OUT OF RANGE REFERENCE UNITS LAB GLU(LOINC) Glucose Level 91 70-110 mg/dL LAB NA(LOINC) Sodium Level 142 136-145 mEq/L LAB K(LOINC) Potassium Level 4.2 3.5-5.0 mEq/L LAB CL(LOINC) Chloride 109 98-110 mEq/L LAB CO2(LOINC) CO2 25 22-32 mEq/L LAB EBAL(LOINC) Electrolyte Balance 8.0 4.0-15.0 mEq/L LAB BUN(LOINC) BUN <5.0 Low 8.0-22.0 mg/dL LAB CRE(LOINC) Creatinine Lvl (s) 0.92 0.50-1.20 mg/dL Result Comment: Testing perf ormed on [employer] analyzer using enzymatic creatinine methodology. LAB BC(LOINC) BUN/Creatinine Ratio Unable to Calculate 10.0-22.0 ratio Result Comment: Unable to ca lculate this test result accurately. Results used to calculate this test are outside the reportable range. LAB CA(LOINC) Calcium Lvl 9.2 8.7-10.4 mg/dL Performed By: #### CBC, ADIF F, YOUNG LEVI, GFR, BMP #### [address] [address] UA Collected: 05/04/2025 9:38 PM Status: F Source: [facility] TYPE CODE TESTS RESULT OUT OF RANGE REFERENCE UNITS LAB SPCUA(LOINC) UA Specimen Type Void LAB CLRUA(LOINC) UA Color Yellow LAB APPUA(LOINC) UA Appear Clear Clear LAB SGUA(LOINC) UA Spec Grav 1.010 1.006-1.029 LAB GLUA(LOINC) UA Glucose Negative Negative mg/dL LAB BILUA(LOINC) UA Bili Negative Neg-Trace LAB KETUA(LOINC) UA Ketones Negative Neg-Trace mg/dL LAB BLDUA(LOINC) UA Blood Negative Neg-Trace LAB PHUA(LOINC) UA pH 8.0 5.0 - 8.0 LAB PROUA(LOINC) UA Protein Negative Negative mg/dL LAB UROUA(LOINC) UA Urobilinogen 0.2 0.2-1.0 E.U ./dL LAB NITUA(LOINC) UA Nitrite Negative Negative LAB LEUUA(LOINC) UA Leuk Est Negative Negative Performed By: #### UA #### [place] [address] BACTERIAL WOUND CULTURE [CCL] Collected: 05/03/2025 1 0:04 PM Status: F Source: [facility] TYPE CODE TESTS RESULT OUT OF RANGE REFERENCE UNITS LAB BACTERIAL WOUND CULTURE [CCL](LOINC) BACTERIAL WOUND CULTURE [CCL] Result Comment: _CULTURE WOU ND [CCL]_ SEE SCANNED REPORT Performed By: #### [id number] ## ## [facility],[address] [place] [address] LACTATE Collected: 5 8:50 PM Status: F Source: [facility] TYPE CODE TESTS RESULT OUT OF RANGE REFERENCE UNITS LAB LACTATE(INC) LACTATE 0.6 0.4 - 2.0 mmol/L Performed By: #### [id number] ## ## [facility],[address] [place] [address] CMP WITH EGFR Collected: 5 8:50 PM Status: F Source: [facility] TYPE CODE TESTS RESULT OUT OF RANGE REFERENCE UNITS LAB CMP with eGFR(LOINC) CMP with eGFR Result Comment: COMPREHENSI VE METABOLIC PANEL LAB SODIUM(LOINC) SODIUM 139 136 - 145 mmol/l LAB POTASSIUM(LOIN C) POTASSIUM 3.9 3.5 - 5.1 mmol/L LAB CHLORIDE(LOINC ) CHLORIDE 107 98 - 107 mmol/L LAB CO2(LOINC) CO2 25.1 21.0 - 32.0 mmol/L LAB GLUCOSE(LOINC) GLUCOSE 82 74 - 106 mg/dl LAB BUN(LOINC) BUN 7 7 - 18 mg/dl LAB CREATININE(ISAIAH NC) CREATININE 0.81 0.55 - 1.02 mg/dl LAB AST/SGOT(LOINC ) AST/SGOT 15 13 - 39 U/L LAB ALK PHOS(LOINC) ALK PHOS 64 46 - 116 U/L LAB CALCIUM(LOINC) CALCIUM 8.3 Low 8.5 - 10.1 mg/dl LAB TOTAL PROTEIN(LOINC) TOTAL PROTEIN 5.7 Low 6.4 - 8.2 g/dl LAB ALBUMIN(LOINC) ALBUMIN 2.9 Low 3.4 - 5.0 g/dL LAB GLOBULIN(LOINC ) GLOBULIN 2.8 1.5 - 3.8 G/DL LAB A/G RATIO(LOINC) A/G RATIO 1.0 0.9 - 1.6 LAB TOTAL BILI(LOINC) TOTAL BILI 0.3 0.2 - 1.0 mg/dl LAB B/C RATIO(LOINC) B/C RATIO 9 0 - 30 ratio LAB ALT/SGPT(LOINC ) ALT/SGPT 17 16 - 63 U/L LAB ANION GAP(LOINC) ANION GAP 11 10 - 20 mmol/L LAB AGE(LOINC) AGE 34 years LAB eGFR(LOINC) eGFR >60 60 - 999 ML/MINUT E LAB eGFR(AA)(LOINC ) eGFR(AA) >60 60 - 999 ML/MINUT E Result Comment: ACCORDING TO THE NATIONAL KIDNEY DISEASE EDUCATION PROGRAM(NKDE), A NORMAL eGFR IS A VALUE GREATER THAN OR EQUAL TO 60 ML/MIN/1.73 SQ METERS. CHRONIC KIDNEY DISEASE: <60mL/MIN/1.73 SQ METERS KIDNEY FAILURE: <15mL/MIN/1.73 SQ METERS THIS TEST SHOULD ONLY BE USED FOR PATIENTS 18 YEARS OF AGE AND OLDER. Performed By: #### [id number] ## ## [facility],[address] [place] [address] CBC + DIFF Collected: 5 8:50 PM Status: F Source: [facility] TYPE CODE TESTS RESULT OUT OF RANGE REFERENCE UNITS LAB CBC + DIFF(LOINC) CBC + DIFF Result Comment: CBC-COMPLETE BLOOD COUNT LAB WBC(LOINC) WBC 8.5 4.5 - 10.8 x 10EE3/UL LAB RBC(LOINC) RBC 3.35 Low 4.10 - 5.30 x 10EE6/UL LAB HEMOGLOBIN(ISAIAH NC) HEMOGLOBIN 11.5 Low 12.0 - 16.0 g/dl LAB HEMATOCRIT(ISAIAH NC) HEMATOCRIT 32.5 Low 34.0 - 46.0 % LAB MCV(LOINC) MCV 97 80 - 99 fl LAB MCH(LOINC) MCH 34 High 27 - 33 pg LAB MCHC(LOINC) MCHC 35 32 - 36 X10 3 LAB RDW/CV(LOINC) RDW/CV 14.2 12.0 - 15.6 % LAB PLATELET(LOINC ) PLATELET 328 150 - 450 x10EE3/UL LAB MPV(LOINC) MPV 6.8 6.6 - 10.5 fl Result Comment: AUTOMATED DI FFERENTIAL LAB NEUT %(LOINC) NEUT % 67.7 46.0 - 76.0 % LAB LYMPH %(LOINC) LYMPH % 19.8 Low 20.0 - 45.0 % LAB MONOS %(LOINC) MONOS % 8.7 0.0 - 10.0 % LAB EO %(LOINC) EO % 3.4 0.0 - 7.0 % LAB BASO %(LOINC) BASO % 0.4 0.0 - 2.0 % LAB Lymph #(LOINC) Lymph # 1.68 0.80 - 2.80 x10EE 3/UL LAB Neut #(LOINC) Neut # 5.74 1.50 - 7.10 x10EE3 /UL LAB Green #(LOINC) Green # 0.74 0.20 - 1.00 x10EE3 /UL LAB EO #(LOINC) EO # 0.29 0.00 - 0.50 x10EE3/U L LAB Baso #(LOINC) Baso # 0.03 0.00 - 0.10 x10EE3 /UL LAB MANUAL DIFF(LOINC) MANUAL DIFF N/A LAB MORPHOLOGY(ISAAIH NC) MORPHOLOGY N/A Performed By: #### [id number] ## ## [facility],[address] [place] [id number] ED PHYSICIAN CLINICAL REPORT Observed: 0 05/03/2025 7:42 PM Status: F Source: [facility] Narrative Physician Clinical Narrative [address] [place] [address] [phone] 05/03/2025 19:42:00 Patient: TOR BERMAN Sex: Female : 1990 Age: 34y Disposition: Discharge to Home Disposition Decision Time: 22:22 05/03/2025 Departure Time: 22:31 05/03/2025 Measurements Wt: 52.2 kg, Ht/Aden: 64.0 in, BMI: 19.74 Initial Vital Sign Measured Time BP MAP HR RR O2Sat ETCO2 Temp Pain GCS RTS 20:05 05/03/2025 128/92 100 77 Time Seen: 19:57 05/03/2025. Arrived- By private vehicle. HISTORY OF PRESENT ILLNESS Chief Complaint: FLANK PAIN and complaining of left flank pain. It is described as located in the left flank. Similar symptoms previously. Patient has had similar symptoms several times. Recent medical care: The patient was seen recently at this facility. ( Seen here last night and plans were to transfer her to [place] but she had to go home and take care of her cats so she signed out AMA.). REVIEW OF SYSTEMS : No difficulty with urination, pain with urination or urinary frequency. CONSTITUTIONAL: No fever or chills. The patient has not had weight loss. NEUROLOGICAL: No headache. EYES: No blurred vision. CVS: No chest 1 of 9 Narrative pain. RESPIRATORY: No difficulty breathing or cough. MUSCULOSKELETAL: No joint pain. The patient has had back pain. SKIN: No skin rash. THROAT: No sore throat. GI: No constipation, black stools or hematemesis. PAST HISTORY See nurses notes. Anxiety disorder Cancer: (stage 3 cervicle. Currently in remission) Depression Renal Failure: (Left kidney only) Surgeries: cervicle biopsy nephrostomy tube Medications: lexapro: 20 mg once a day . Lorazepam Intensol 2 mg/mL oral concentrate: 1 mg three times a day . oxycodone 10 mg tablet: 10 mg every 6 hours . zofran: 4 mg every 6 hours . Allergies: Haldol Penicillins SOCIAL HISTORY Smoker- current status unknown. Regular vaping. Drug use: marijuana. No alcohol use. ADDITIONAL NOTES The nursing notes have been reviewed. PHYSICAL EXAM Appearance: Alert. Oriented X3. No acute distress. Eyes: Pupils equal, round and reactive to light. ENT: Nose normal. Pharynx normal. 2 of 9 Narrative Neck: Normal inspection. Neck supple. CVS: Normal heart rate and rhythm. Heart sounds normal. Pulses normal. Respiratory: No respiratory distress. Breath sounds normal. Chest nontender. Abdomen: Soft and nontender. Bowel sounds normal. No organomegaly. No mass. Skin: Skin warm and dry. No rash. Extremities: Extremities exhibit normal ROM. No lower extremity edema. Neuro: Oriented X 3. No motor deficit. No sensory deficit. LABS, X-RAYS, AND EKG Laboratory Tests: CBC + DIFF Final BINA: 05/03/2025 20:50:00 EDT MsgRcvd: 05/03/2025 21:20 EDT Lab Test Result Reference Status Received Comments 05/03/2025 21:20 CBC-COMPLETE CBC + DIFF Final EDT BLOOD COUNT 05/03/2025 21:20 WBC 8.5 x 10/UL 4.5 - 10.8 Final EDT 3.35 x 10/UL 05/03/2025 21:20 RBC 4.10 - 5.30 Final Below low normal EDT 11.5 g/dl 05/03/2025 21:20 HEMOGLOBIN 12.0 - 16.0 Final Below low normal EDT 32.5 % 05/03/2025 21:20 HEMATOCRIT 34.0 - 46.0 Final Below low normal EDT 05/03/2025 21:20 MCV 97 fl 80 - 99 Final EDT 34 pg 05/03/2025 21:20 MCH 27 - 33 Final Above high normal EDT 05/03/2025 21:20 MCHC 35 X10 3 32 - 36 Final EDT 3 of 9 Narrative Lab Test Result Reference Status Received Comments 05/03/2025 21:20 RDW/CV 14.2 % 12.0 - 15.6 Final EDT 05/03/2025 21:20 PLATELET 328 x10/UL 150 - 450 Final EDT 05/03/2025 21:20 AUTOMATED MPV 6.8 fl 6.6 - 10.5 Final EDT DIFFERENTIAL 05/03/2025 21:20 NEUT % 67.7 % 46.0 - 76.0 Final EDT 19.8 % 05/03/2025 21:20 LYMPH % 20.0 - 45.0 Final Below low normal EDT 05/03/2025 21:20 MONOS % 8.7 % 0.0 - 10.0 Final EDT 05/03/2025 21:20 EO % 3.4 % 0.0 - 7.0 Final EDT 05/03/2025 21:20 BASO % 0.4 % 0.0 - 2.0 Final EDT 05/03/2025 21:20 Lymph # 1.68 x10/UL 0.80 - 2.80 Final EDT 05/03/2025 21:20 Neut # 5.74 x10/UL 1.50 - 7.10 Final EDT 05/03/2025 21:20 Green # 0.74 x10/UL 0.20 - 1.00 Final EDT 05/03/2025 21:20 EO # 0.29 x10/UL 0.00 - 0.50 Final EDT 05/03/2025 21:20 Baso # 0.03 x10/UL 0.00 - 0.10 Final EDT 4 of 9 Narrative Lab Test Result Reference Status Received Comments 05/03/2025 21:20 MANUAL DIFF N/A New Order EDT 05/03/2025 21:20 MORPHOLOGY N/A New Order EDT CMP with eGFR Final BINA: 05/03/2025 20:50:00 EDT MsgRcvd: 05/03/2025 21:36 EDT Lab Test Result Reference Status Received Comments COMPREHENSIVE 05/03/2025 CMP with eGFR Final METABOLIC 21:36 EDT PANEL 05/03/2025 SODIUM 139 mmol/l 136 - 145 Final 21:36 EDT 05/03/2025 POTASSIUM 3.9 mmol/L 3.5 - 5.1 Final 21:36 EDT 05/03/2025 CHLORIDE 107 mmol/L 98 - 107 Final 21:36 EDT 05/03/2025 CO2 25.1 mmol/L 21.0 - 32.0 Final 21:36 EDT 05/03/2025 GLUCOSE 82 mg/dl 74 - 106 Final 21:36 EDT 05/03/2025 BUN 7 mg/dl 7 - 18 Final 21:36 EDT 05/03/2025 CREATININE 0.81 mg/dl 0.55 - 1.02 Final 21:36 EDT 05/03/2025 AST/SGOT 15 U/L 13 - 39 Final 21:36 EDT 5 of 9 Narrative Lab Test Result Reference Status Received Comments 05/03/2025 ALK PHOS 64 U/L 46 - 116 Final 21:36 EDT 8.3 mg/dl 05/03/2025 CALCIUM 8.5 - 10.1 Final Below low normal 21:36 EDT TOTAL 5.7 g/dl 05/03/2025 6.4 - 8.2 Final PROTEIN Below low normal 21:36 EDT 2.9 g/dL 05/03/2025 ALBUMIN 3.4 - 5.0 Final Below low normal 21:36 EDT 05/03/2025 GLOBULIN 2.8 G/DL 1.5 - 3.8 Final 21:36 EDT 05/03/2025 A/G RATIO 1.0 0.9 - 1.6 Final 21:36 EDT 05/03/2025 TOTAL BILI 0.3 mg/dl 0.2 - 1.0 Final 21:36 EDT 05/03/2025 B/C RATIO 9 ratio 0 - 30 Final 21:36 EDT 05/03/2025 ALT/SGPT 17 U/L 16 - 63 Final 21:36 EDT 05/03/2025 ANION GAP 11 mmol/L 10 - 20 Final 21:36 EDT 05/03/2025 AGE 34 years Final 21:36 EDT 05/03/2025 eGFR >60 ML/MINUTE 60 - 999 Final 21:36 EDT 6 of 9 Narrative Lab Test Result Reference Status Received Comments ACCORDING TO THE NATIONAL KIDNEY DISEASE EDUCATION PROGRAM(NKDE), A NORMAL eGFR IS A VALUE GREATER THAN OR EQUAL TO 60 ML/MIN/1.73 SQ METERS. 05/03/2025 CHRONIC KIDNEY eGFR(AA) >60 ML/MINUTE 60 - 999 Final 21:36 EDT DISEASE: <60mL/MIN/1.73 SQ METERS KIDNEY FAILURE: <15mL/MIN/1.73 SQ METERS THIS TEST SHOULD ONLY BE USED FOR PATIENTS 18 YEARS OF AGE AND OLDER. LACTATE Final BINA: 05/03/2025 20:50:00 EDT MsgRcvd: 05/03/2025 21:37 EDT Lab Test Result Reference Status Received Comments 05/03/2025 21:37 LACTATE 0.6 mmol/L 0.4 - 2.0 Final EDT 7 of 9 Narrative PROGRESS AND PROCEDURES MEDICAL DECISION MAKING: Ordered tests include complete blood count, chemistries and lactate. The patient has been stable. IV fluids and antimicrobials have been given. (patient complaining of left flank pain. Was seen here last night and did have a CT scan done. We had arranged to send her up to [facility]. But she had to go home and take care some things. She did go up to [facility] [place] is a ER around 3:00 a.m. on her own. They were going to have Interventional Radiology replace the nephrostomy tube but they were going to do it under local anesthetic instead of general anesthetic and the patient did not want to do that so they were going to have to reschedule. The patient comes back tonight complaining of left flank pain. I did look at the CAT scan results from last night. It did show a left percutaneous nephrostomy tube with pigtail in the left kidney. There is left renal parenchymal thinning. Left upper pole and left mid pole renal scarring. Air within the renal collecting system likely secondary to the nephrostomy. Right kidney demonstrates uniform enhancement. No hydronephrosis. There was some distal colonic wall thickening which may represent under distention versus colitis. I did explain to the patient that I felt we should admit her up to [facility] since she is having so much pain. She refuses to do that. Her urinalysis from last night that came from the nephrostomy tube did show 500 leukocyte esterase with 6-10 white cells and 2+ bacteria. So I did start the patient on Bactrim DS 1 p.o. b.i.d. dispensed #20 0 refill. Patient is refusing to go up to [facility]. So at this point I did not feel comfortable just giving her pain medicines in sending her home. I told her she is having this left flank pain for reason. I did see a small amount of drainage that looks serous to me coming from the nephrostomy tube site in her left flank. I did culture that. And we are covering her with antibiotics. I did ask her to call [facility] tomorrow and see if she can get a more definite time on when they are going to do this nephrostomy tube replacement under general anesthesia. But since she is refusing to be admitted up to [facility] I will put her on antibiotics. Patient did not give us a urine here [facility] so I am going off of last night's urine sample. She did not get a prescription for antibiotics last night because she left against medical advice.). Disposition: Condition: stable. Disposition Decision Time: 22:22 05/03/2025. Patient discharged to Home. Discharged in good condition. Discharge decision based on the following: patient's condition is stable; patient is ambulatory; patient's exam is stable; moderately abnormal test results; stable condition on multiple repeat evaluations; social support is adequate; transportation is available; follow-up is available; clinical impression is consistent with outpatient treatment. CLINICAL IMPRESSION Acute urinary tract infection with cystitis. No hematuria. Acute left flank pain 8 of 9 Narrative DISCHARGE INSTRUCTIONS (Take antibiotics as prescribed. Call [facility] tomorrow and update them on your condition and when they can schedule you for the nephrostomy tube procedure.). Warnings: GENERAL WARNINGS: Return or contact your physician immediately if your condition worsens or changes unexpectedly, if not improving as expected, or if other problems arise. Prescription Medications: Bactrim DS 800 mg-160 mg tablet: Take 1 tablet by mouth twice a day for 10 days, dispense 20 tablet. Refills 0. Pharmacy: [facility] [employer]. [facility] [place] [address]. Understanding of the discharge instructions verbalized by patient. Follow-up with: Solis Pace MD, Phone: [phone], [address], [place] [address]. Follow up in three days. Call for an appointment. Reason for referral: evaluation and treatment. Summary of care provided to patient. (Electronically signed by Gonzalez Pineda D.O. 05/04/25 00:18:09 EDT) Generated by [facility] 9 of 9 ED ORDER SHEET (CPOE ONLY) Observed: 11/2024 7:42 PM Status: F Source: [facility] Order Sheet Order Sheet [facility] [address] [place] [address] [id number] 05/03/2025 Patient: TOR BERMAN Sex: Female : 1990 Age: 34y MEASUREMENTS: Wt: 52.2 kg, Ht/Aden: 64.0 in, BMI: 19.74 ALLERGIES: Haldol, Penicillins MEDICATION/IV/DRIP/FLUID ORDERS Order Description Priority Entered Acknowledged Completed IV NS 0.9 %1000 mL at 999 20:14 05/03/2025 21:13 mL/hr (NOW x1) Gonzalez Pineda D.O. 05/03/2025 Luzma Farah R.N. Bactrim DS PO1 tab (NOW x1) 22:11 05/03/2025 22:13 22:59 Gonzalez Pineda D.O. 05/03/2025 05/03/2025 Yohana Melvin R.NApril LAB ORDERS Order Description Priority Entered Acknowledged Collected Completed CBC w Diff Stat Stat 20:14 05/03/2025 20:56 05/03/2025 21:03 05/03/2025 Kendra Stanford Seth Lapp, R.N. R.N. CMP Stat Stat 20:14 05/03/2025 20:56 05/03/2025 21:03 05/03/2025 Kendra Stanford Seth Lapp, R.N. R.N. Urinalysis Stat Stat 20:14 05/03/2025 Cancelled: Physician Order 1 of 2 Order Sheet Gonzalez Pineda D.O. 21:04 EDT Luzma Farah R.N. Lactate, Serum Stat Stat 20:14 05/03/2025 20:56 05/03/2025 21:03 05/03/2025 Kendra Stanford Seth Lapp, R.N. R.N. Culture Wound Stat 22:07 05/03/2025 22:13 05/03/2025 [VANESSA] Stat Kendra Stanford RAprilNApril Order Comments: 22:07 05/03/2025: (Left nephrostomy tube site) Gonzalez Pineda D.O. DIAGNOSTIC STUDY ORDERS Order Description Priority Entered Acknowledged Completed STAFF ORDERS Order Description Priority Entered Acknowledged Collected Completed Vital Signs every 30 20:14 05/03/2025 21:03 05/03/2025 minutes Kendra Stanford R.N. On Site Construction Superintendent 20:14 05/03/2025 21:03 05/03/2025 Kendra Stanford R.N. Oxygen titrate to 92% 20:14 05/03/2025 21:03 05/03/2025 Kendra Stanford R.N. [Electronically signed by Gonzalez Pineda D.O. (05/04/2025 00:18 EDT)] 2 of 2 ED SUPER BILL Observed: 05/03/2025 7:42 PM Status: F Source: [facility] Superbill [address] [address] [id number] 05/03/2025 Patient: TOR BERMAN Sex: Female : 1990 Age: 34y Item Facility Professional Category Description Code Code Quantity Fee Total Drugs Normal Saline 197445 1 $0.00 $0.00 1000cc (199629) Nurse/E/M EMERGENCY 580791 1 $0.00 $0.00 DEPARTMENT VISIT HIGH/URGENT SEVERITY (86893-45) Nurse/IV/IM/Infusions Hydration initial 057888 1 $0.00 $0.00 (62968) Grand Total $0.00 Providers Gonzalez Pineda D.O. Chief Complaint FLANK PAIN and complaining of left flank pain. [facility] Acute urinary tract infection with cystitis. No hematuria. Acute left flank pain ICD-10 Codes N30.90: Cystitis, unspecified without hematuria R10.9: Unspecified abdominal pain 2 of 2 ED VITALS FLOW SHEET Observed: 7:42 PM Status: F Source: [facility] Vitals Vital Sign Flow Sheet [address] [address] [id number] 05/03/2025 Patient: TOR BERMAN [facility]#: [id number] Sex: Female : 1990 Age: 34y Measurements Wt: 52.2 kg, Ht/Aden: 64.0 in, BMI: 19.74 Measured Time BP MAP HR RR O2Sat ETCO2 Temp Pain GCS RTS 22:21 05/03/2025 134/98 108 71 22:15 05/03/2025 67 97% 22:10 05/03/2025 70 97% 22:05 05/03/2025 128/91 103 71 22:05 05/03/2025 71 98% 22:00 05/03/2025 63 98% 21:55 05/03/2025 72 97% 21:50 05/03/2025 119/76 90 69 21:50 05/03/2025 72 97% 21:45 05/03/2025 61 98% 21:40 05/03/2025 64 98% 21:35 05/03/2025 134/85 100 66 21:35 05/03/2025 70 97% 21:30 05/03/2025 72 97% 21:25 05/03/2025 68 98% 1 of 2 Vitals Measured Time BP MAP HR RR O2Sat ETCO2 Temp Pain GCS RTS 21:20 05/03/2025 122/85 102 76 21:20 05/03/2025 78 96% 21:15 05/03/2025 69 98% 21:10 05/03/2025 70 97% 21:05 05/03/2025 119/84 100 69 21:05 05/03/2025 69 98% 21:00 05/03/2025 67 96% 20:55 05/03/2025 65 97% 20:50 05/03/2025 120/88 95 64 20:45 05/03/2025 69 97% 20:40 05/03/2025 70 97% 20:35 05/03/2025 127/84 94 69 20:35 05/03/2025 68 97% 20:30 05/03/2025 67 97% 20:25 05/03/2025 66 98% 20:20 05/03/2025 126/89 102 67 20:20 05/03/2025 67 98% 20:15 05/03/2025 69 98% 20:10 05/03/2025 70 99% 20:06 05/03/2025 128/92 104 74 16 98% 98.2 F 8 20:05 05/03/2025 128/92 100 77 2 of 2 ED VISIT SUMMARY Observed: 05/03/2025 7:42 PM Status: F Source: [facility] Visit Overview Visit Overview [place] [id number] [facility] 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 Lorazepam Intensol 2 mg/mL oral concentrate: 1 mg three times a day . oxycodone 10 mg tablet: 10 mg every 6 hours . zofran: 4 mg every 6 hours . 1 of 3 Visit Overview PAST MEDICAL HISTORY / PROBLEMS Anxiety disorder Cancer. (stage 3 cervicle. Currently in remission) Depression Renal Failure. (Left kidney only) See nurses notes PAST SURGICAL HISTORY nephrostomy tube SOCIAL HISTORY Smoking status: Yes Alcohol use: No Drug use: Yes ED COURSE MEDICATIONS GIVEN IN EMERGENCY DEPARTMENT 21:12 05/03/25 IV NS 0.9 % 1000 mL 999 mL/hr 22:29 05/03/25 Bactrim DS PO 1 tab IV SITE INFORMATION INTAKE OUTPUT REASSESMENT (most recent) 21:17 05/03/25. Ambulatory to room. ( states [facility]essa was not able to help her and told her to return to [place] if she has pain. States she has increased pain. States she will schedule a nephrostomy replacement in the am). GENERAL / NEURO / PSYCH: Alert. Oriented X 4. Appears in no acute distress. RESPIRATORY: Respirations not labored. CVS: Normal heart rate and rhythm. VITAL SIGNS First Vitals Last Vitals Temp 20:05 05/03/25 Temp 22:21 05/03/25 2 of 3 Visit Overview First Vitals Last Vitals BP 20:05 05/03/25 128/92 BP 22:21 05/03/25 134/98 HR 20:05 05/03/25 77 HR 22:21 05/03/25 71 RR 20:05 05/03/25 RR 22:21 05/03/25 O2 Sat 20:05 05/03/25 O2 Sat 22:21 05/03/25 Pain 20:05 05/03/25 Pain 22:21 05/03/25 ETCO2 20:05 05/03/25 ETCO2 22:21 05/03/25 GCS 20:05 05/03/25 GCS 22:21 05/03/25 RTS 20:05 05/03/25 RTS 22:21 05/03/25 PROCEDURES NURSING INTERVENTIONS LABS / STUDIES LABS / STUDIES ORDERED CBC w Diff CMP Culture Wound [VANESSA] Lactate, Serum CLINICAL IMPRESSION ACUTE LEFT FLANK PAIN ACUTE URINARY TRACT INFECTION WITH CYSTITIS. NO HEMATURIA 3 of 3 ED NURSES CLINICAL NOTE Observed: 2024 7:42 PM Status: F Source: [facility] Nurse Narrative Nurse Clinical Narrative [address] [place] [address] [phone] 05/03/2025 19:42:00 Patient: TOR BERMAN Sex: Female : 1990 Age: 34y Disposition: Discharge to Home Disposition Decision Time: 22:22 05/03/2025 Departure Time: 22:31 05/03/2025 TRIAGE Arrived by private vehicle. Historian: (patient). Primary physician (Laurent January). Triage time: 19:55 05/03/2025. Acuity: LEVEL 3. Chief Complaint: (left flank pain radiating down left leg). 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 ( nausea, voting and diarrhea). The patient has had abdominal pain and flank pain. No spotting, hematuria, abnormal bleeding or fever. SEPSIS SCREEN: NEGATIVE. SIRS criteria negative. No possible sources of infection. -- 20:05/03/25 GINNY Dior R.N. 20:05/03/25. BP: 128/92 MAP: 104. HR: 74. RR: 16. O2 saturation: 98% Temperature: 98.2 F. Pain level now 8/10. -- 20:05/03/25 LILIANAT Virginia Dior R.N. Measurements: 20:05/03/25 Wt: 52.2 kg, Ht/Aden: 64.0 in, BMI: 19.74 -- 20:05/03/25 LILIANAT Virginia Dior R.N. Medications: zofran: 4 mg every 6 hours . -- 20:05/03/25 LILIANAT Virginia Dior R.N. lexapro: 20 mg once a day . -- 20:05/03/25 LILIANAT Virginia Dior R.N. 1 of 4 Nurse Narrative Lorazepam Intensol 2 mg/mL oral concentrate: 1 mg three times a day . -- 20:05/03/25 LILIANAT Virginia Dior R.N. oxycodone 10 mg tablet: 10 mg every 6 hours . -- 20:05/03/25 GINNY Dior R.N. Allergies: Penicillins -- 20:02 05/03/25 GINNY Dior R.N. Haldol -- 20:05/03/25 LILIANAT Virginia Dior R.N. Problems: Cancer. (stage 3 cervicle. Currently in remission) -- 20:02 05/03/25 GINNY Dior R.N. Renal Failure. (Left kidney only) -- 20:02 05/03/25 GINNY Dior R.N. Depression -- 20:02 05/03/25 LILIANAT Virginia Dior R.N. Anxiety disorder -- 20:02 05/03/25 GINNY Dior R.N. Surgeries: nephrostomy tube -- 20:02 05/03/25 GINNY Dior R.N. cervicle biopsy -- 20:05/03/25 EDT Virginia Dior R.N. History 19:55 05/03/25. PAST MEDICAL HX: Denies current . SOCIAL HX: Smoker- current status unknown. Regular vaping. Drug use: marijuana. No alcohol use. The patient has not traveled outside the [place] Infectious disease exposure: No infectious disease exposure. ABUSE ASSESSMENT: The patient answered "yes" to the question(s) "Do you feel safe in your home?" and "no" to the question(s) "Are you afraid to go home?". SELF HARM ASSESSMENT: Self harm assessment was performed. The patient answered no to the question(s) "Have you recently felt down, depressed, or hopeless?" and "Do you have thoughts of harming or killing yourself?". FALL RISK ASSESSMENT: Fall risk assessment completed. No risk factors identified. 2 of 4 Nurse Narrative SKIN INTEGRITY ASSESSMENT: Skin integrity risk assessment completed. No skin integrity risk identified. -- 20:05/03/25 EDT Virginia Dior R.N. Interventions 19:55 05/03/25. Advanced care plan. Patient does not have advanced directive. -- 20:05/03/25 LILIANAT Virginia Dior R.N. PHYSICAL ASSESSMENT 21:17 05/03/25. Ambulatory to room. ( states [facility] was not able to help her and told her to return to [place] if she has pain. States she has increased pain. States she will schedule a nephrostomy replacement in the am). GENERAL / NEURO / PSYCH: Alert. Oriented X 4. Appears in no acute distress. RESPIRATORY: Respirations not labored. CVS: Normal heart rate and rhythm. -- 21:05/03/25 EDT Luzma Farah R.N. NURSING PROGRESS NOTES 20:54 05/03/25. Two patient identifiers checked. Call light placed in reach. Side rails up x 2. Bed placed in lowest position. Brakes of bed on. -- :05/03/25 GINNY Farah R.N. 21:02 05/03/25. Site #1 started in the right antecubital space with a 20g angiocath with aseptic technique and good blood return; 1 attempt. Blood drawn: rainbow set and arriola tube(s). Labeled in the presence of the patient and sent to the lab. Saline lock flushed with 5 mL saline. -- 21:12 05/03/25 Jamison GallegosNApril 21:05/03/25. IV NS 0.9 % 1000 mL started in bag#1 1000 mL at 999 mL/hr via Site# 1. Allergies verified and confirmed 5 rights. IV patency established. IV site checked: no pain, redness, or swelling. IV flushed thoroughly pre-medication administration. Information reviewed with patient including reason for taking this medication. Verbalizes understanding. -- 21:13 05/03/25 Jamison GallegosNApril 21:05/03/25. ( contacted vanessa for medical records. 's notes showed she was offered nephrostomy replacement with local anesthesia. She refused.). -- 21:18 05/03/25 Jamison GallegosNApril 22:05/03/25. Bactrim DS PO 1 tab given. Allergies verified and confirmed 5 rights. Information reviewed with patient including reason for taking this medication. Verbalizes understanding. -- 22:59 05/03/25 GINNY Farah R.N. DISPOSITION / DISCHARGE 22:15 05/03/25. HR: 67 bpm. O2 saturation: 97%. -- 23:14 05/03/25 GINNY Farah R.NApril 22:21 05/03/25. BP: 134/98 MAP: 108 mmHg. HR: 71 bpm. -- 23:14 05/03/25 EDT Jamison MelvinNApril 3 of 4 Nurse Narrative 22:28 05/03/25. IV NS 0.9 %: Medication Discontinued. bag #1 stopped upon discharge. Total amount infused: 300 mL. IV patency established. IV site checked: no pain, redness, or swelling. IV flushed thoroughly post-medication administration. -- 22:57 05/03/25 GINNY Farah R.NApril 22:29 05/03/25. Site #1 removed upon discharge. Catheter intact. Pressure dressing applied. -- 22:58 05/03/25 GINNY Farah R.N. 22:31 05/03/25. Condition at departure: unchanged and stable. ( upon learning that MD did not order desired medication, pt started taking out her IV, stating she will melanie me, melanie this hospital, states we wasted so much of her time, states she will never come back. Pt states "please don't come close to me, I dont every want to see you again, don't even give me that paperwork". Pt scooted down to the bottom of the bed before this rn had a chance to put the side rail down. Pt did not receive information about antibiotics sent to her pharmacy. This rn sympathized with pt for not being able to give her narcotics but educated pt that she needs to follow up with urology to get her nephrostomy changed, and follow up with pain management for continued pain control. Pt educated that this er cannot continually give out strong narcotic medication without pt following up with specialists to get diagnosed cause of pain dealt with. Pt quickly walked out of ER reiterating that she will melanie all of us and never come back here again.). Reviewed medication(s) (pt took bactrim, refused discharge information including prescription information). Written instructions provided (pt refused discharge instructions). -- 22:56 05/03/25 EDT Luzma Farah R.N. Departure time: 22:31 05/03/2025. The patient left prior to discharge education being provided. ( pt refused discharge paperwork, refused to sign discharge paperwork.). -- 23:00 05/03/25 EDT Luzma Farah R.N. (Electronically signed by Luzma Farah R.N. 05/03/25 23:15:27 EDT) Generated by [facility] 4 of 4 ED MED ADMINISTRATION DETAIL Observed: 0 05/03/2025 7:42 PM Status: F Source: [facility] Counter Top Maker Medication Administration Record [address] [address] [id number] 05/03/2025 Patient: TOR BERMAN Sex: Female : 1990 Age: 34y MEASUREMENTS: Wt: 52.2 kg, Ht/Aden: 64.0 in, BMI: 19.74 ALLERGIES: Haldol, Penicillins Medication Ordered Medication Administration Date/Time IV NS 0.9 % 1000 21:12 05/03 IV NS 0.9 % 1000 mL started in bag#1 1000 mL at Started mL at 999 mL/hr 999 mL/hr via Site# 1. Allergies verified and confirmed 5 rights. IV 21:12 05/03/2025 (NOW x1) patency established. IV site checked: no pain, redness, or swelling. Luzma Farah R.N. IV flushed thoroughly pre-medication administration. Information Stopped reviewed with patient including reason for taking this medication. 22:28 05/03/2025 Verbalizes understanding. - 21:13 Yohana Melvin R.N. Scanned 22:28 05/03 Medication Discontinued: bag #1 stopped upon discharge. Total amount infused: 300 mL. IV patency established. IV site checked: no pain, redness, or swelling. IV flushed thoroughly post-medication administration. - 22:57 Luzma Farah R.N. Bactrim DS PO 1 22:29 05/03 Bactrim DS PO 1 tab given. Allergies verified and Given tab (NOW x1) confirmed 5 rights. Information reviewed with patient including 22:29 05/03/2025 reason for taking this medication. Verbalizes understanding. - Luzma Farah R.N. 22:59 Luzma Farah R.N. Not Scanned 1 of 1 CUR Observed: 05/03/2025 11:08 AM Status: F Source: [facility] . MICRO - Microbiology PROCEDURE: Urine Culture [O1 *1] SOURCE: Urine BODY SITE: COLLECTED DATE/TIME: 05/03/2025 11:08 EDT RECEIVED DATE/TIME: 05/03/2025 11:21 EDT START DATE/TIME: 05/03/2025 11:21 EDT FREE TEXT SOURCE: FINAL REPORTS Final Report [] Verified Date/Time/Personnel: 05/04/2025 14:13 EDT >100,000 cfu/ml Multiple bacterial morphotypes present. Probable Contamination. Suggest recollection if clinically indicated. PRELIMINARY REPORTS Preliminary Report [] Verified Date/Time/Personnel: 05/03/2025 11:59 EDT Specimen received in lab. Order Comments O1: Urine Culture Added by Discern Performing Locations *1: This test was performed at: [facility], [address] [place] [address], [place], [address]- , [place] CT ABDOMEN/PELVIS W/O CONTRAST Observed: 05/03/2025 10:46 AM Status: F Source: [facility] ORIGINAL EXAMINATION: CT OF THE ABDOMEN AND [...] CT W/IV CONTRAST AT 4AM TODAY IN [place] NEPHROSTOMY LEFT SINCE 2019 CERVICAL CA W/ [...] by: Clotilde Sethi MD Preliminary Report By: Gonzalez Méndez MD Electronically signed By Clotilde Sethi MD Dictated Date: 05/03/2025 11:06:57 AM Prelim Date: 05/03/2025 11:34:06 AM Sign Date: 05/03/2025 11:34:06 AM Ordering Provider: CLOTILDE BURR Interpreted by: Clotilde Sethi MD Preliminary Report By: Gonzalez Méndez MD Electronically signed By Clotilde Sethi MD Dictated Date: 05/03/2025 11:06:57 AM Prelim Date: 05/03/2025 11:34:06 AM Sign Date: 05/03/2025 11:34:06 AM Ordering Provider: CLOTILDE BURR UA Collected: 10:09 AM Status: F Source: [facility] Order Comment: from nephrost alma delia tube TYPE CODE TESTS RESULT OUT OF RANGE REFERENCE UNITS LAB SPCUA(LOINC) UA Specimen Type Not Given LAB CLRUA(LOINC) UA Color Yellow LAB APPUA(LOINC) UA Appear Cloudy Abnormal Clear LAB SGUA(LOINC) UA Spec Grav >=1.030 Abnormal 1.006-1.029 LAB GLUA(LOINC) UA Glucose Negative Negative mg/dL LAB BILUA(LOINC) UA Bili Negative Neg-Trace LAB KETUA(LOINC) UA Ketones Negative Neg-Trace mg/dL LAB BLDUA(LOINC) UA Blood Small Abnormal Neg-Trace LAB PHUA(LOINC) UA pH 8.5 Abnormal 5.0 - 8.0 LAB PROUA(LOINC) UA Protein 100 Abnormal Negative mg/dL LAB UROUA(LOINC) UA Urobilinogen 0.2 0.2-1.0 E.U ./dL LAB NITUA(LOINC) UA Nitrite Negative Negative LAB LEUUA(LOINC) UA Leuk Est Moderate Abnormal Negative Performed By: #### UA, UAMIC #### [place] [id number] UAMIC Collected: 05/03/2025 10:09 AM Status: F Source: [facility] TYPE CODE TESTS RESULT OUT OF RANGE REFERENCE UNITS LAB RBCUA(LOINC) UA RBC 3-5 Abnormal 0-2 /hpf LAB WBCUA(LOINC) UA WBC 25-50 Abnormal 0-5 /hpf LAB EPIUA(LOINC) UA Squam Epithelial 0-2 0-20 /hpf LAB AMOUA(LOINC) UA Amorphus 2+ /hpf LAB BACUA(LOINC) UA Bacteria 3+ Abnormal Negative /hpf Performed By: #### UA, UAMIC #### [place] [address] CBL Observed: 05/03/2025 6:21 AM Status: F Source: [facility] . MICRO - Microbiology PROCEDURE: Blood Culture (bacterial) [*1] SOURCE: Blood BODY SITE: COLLECTED DATE/TIME: 05/03/2025 06:21 EDT RECEIVED DATE/TIME: 05/03/2025 07:08 EDT START DATE/TIME: 05/03/2025 07:08 EDT FREE TEXT SOURCE: FINAL REPORTS Final Report [] Verified Date/Time/Personnel: 05/08/2025 07:59 EDT Blood Culture: No Growth at 5 days. PRELIMINARY REPORTS Preliminary Report [] Verified Date/Time/Personnel: 05/03/2025 07:59 EDT Culture has been received in lab and is no growth to date. Routine cultures are held for 5 days. Performing Locations *1: This test was performed at: [address], [address] [place] [address] LAC Collected: 05/03/2025 6:19 AM Status: F Source: [facility] TYPE CODE TESTS RESULT OUT OF RANGE REFERENCE UNITS LAB LAC(LOINC) Lactic Acid Lvl 0.7 0.5-2.2 mmol/L Performed By: #### MDW, CMP, GFR, LAC, CBC, ADIFF, ANEU #### [place] [address] CBL Observed: 05/03/2025 6:19 AM Status: F Source: [facility] . MICRO - Microbiology PROCEDURE: Blood Culture (bacterial) [*1] SOURCE: Blood BODY SITE: COLLECTED DATE/TIME: 05/03/2025 06:19 EDT RECEIVED DATE/TIME: 05/03/2025 07:08 EDT START DATE/TIME: 05/03/2025 07:08 EDT FREE TEXT SOURCE: FINAL REPORTS Final Report [] Verified Date/Time/Personnel: 05/08/2025 07:59 EDT Blood Culture: No Growth at 5 days. PRELIMINARY REPORTS Preliminary Report [] Verified Date/Time/Personnel: 05/03/2025 07:59 EDT Culture has been received in lab and is no growth to date. Routine cultures are held for 5 days. Performing Locations *1: This test was performed at: [facility], [address] [place] [address], [address] [place] [address] CBC Collected: 6:12 AM Status: F Source: [facility] TYPE CODE TESTS RESULT OUT OF RANGE REFERENCE UNITS LAB WBC(LOINC) WBC 8.7 4.5-10.8 10 3/mcL LAB RBCCT(LOINC) RBC 3.79 Low 4.10-5.30 10 6/mcL LAB HGB(LOINC) Hgb 12.3 12.0-16.0 G/dL LAB HCT(LOINC) Hct 36.4 34.0-46.0 % LAB MCV(LOINC) MCV 96.0 80.0-99.0 fL LAB MCH(LOINC) MCH 32.5 27.0-33.0 pg LAB MCHC(LOINC) MCHC 33.9 32.0-36.0 G/dL LAB RDW(LOINC) RDW 15.1 11.5-15.5 % LAB PLT(LOINC) Platelet 314 150-450 10 3/mcL LAB MPV(LOINC) MPV 7.4 6.6-10.5 fL Performed By: #### MDW, CMP, GFR, LAC, CBC, ADIFF, ANEU #### [place] [address] .AUTO DIFF Collected: 05/03/2025 6:12 AM Status: F Source: [facility] TYPE CODE TESTS RESULT OUT OF RANGE REFERENCE UNITS LAB GREGORIA(LOINC) Neutrophil % 62.9 50.0-75.0 % LAB LYM(LOINC) Lymphocyte % 23.8 20.0-40.0 % LAB MON(LOINC) Monocyte % 10.3 2.0-13.0 % LAB EO(LOINC) Eosinophil % 2.5 0.0-6.0 % LAB BAS(LOINC) Basophil % 0.5 0.0-2.5 % LAB ABLYM(LOINC) Lymphocyte, Absolute 2.1 0.9-4.3 10 3/mcL LAB MIKEY(LOINC) Monocyte, Absolute 0.9 0.1-1.4 10 3/mcL LAB AEOS(LOINC) Eosinophil, Absolute 0.2 0.0-0.7 10 3/mcL LAB ABAS(LOINC) Basophil, Absolute 0.0 0.0-0.3 10 3/mcL Performed By: #### MDW, CMP, GFR, LAC, CBC, ADIFF, ANEU #### [place] [address] .NEUABS Collected: 6:12 AM Status: F Source: [facility] TYPE CODE TESTS RESULT OUT OF RANGE REFERENCE UNITS LAB ANEU(LOINC) Neutrophil, Absolute 5.5 2.3-8.1 10 3/mcL Performed By: #### MDW, CMP, GFR, LAC, CBC, ADIFF, ANEU #### [place] [address] .MDW Collected: 05/03/2025 6:12 AM Status: F Source: [facility] TYPE CODE TESTS RESULT OUT OF RANGE REFERENCE UNITS LAB MDW(LOINC) Monocyte Distribution Width 19.35 0.00-20.00 Result Comment: For ED adult patients suspected of sepsis, MDW<=20.0 does not rule out sepsis or risk of sepsis Performed By: #### MDW, CMP, GFR, LAC, CBC, ADIFF, ANEU #### [place] [address] CMP Collected: 05/03/2025 6:12 AM Status: F Source: [facility] TYPE CODE TESTS RESULT OUT OF RANGE REFERENCE UNITS LAB GLU(LOINC) Glucose Level 85 70-110 mg/dL LAB NA(LOINC) Sodium Level 139 136-145 mEq/L LAB K(LOINC) Potassium Level 5.0 3.5-5.0 mEq/L Result Comment: Specimen sli ghtly hemolyzed. LAB CL(LOINC) Chloride 111 High 98-110 mEq/L LAB CO2(LOINC) CO2 24 22-32 mEq/L LAB EBAL(LOINC) Electrolyte Balance 4.0 4.0-15.0 mEq/L LAB BUN(LOINC) BUN 8.0 8.0-22.0 mg/dL LAB CRE(LOINC) Creatinine Lvl (s) 0.91 0.50-1.20 mg/dL Result Comment: Testing perf ormed on [employer] Mobile analyzer using enzymatic creatinine methodology. LAB BC(LOINC) BUN/Creatinine Ratio 8.8 Low 10.0-22.0 ratio LAB CA(LOINC) Calcium Lvl 8.3 Low 8.7-10.4 mg/dL LAB PROT(LOINC) Total Protein 5.9 5.7-8.2 G/dL LAB ALB(LOINC) Albumin Level 3.5 3.2-4.8 G/dL LAB GLB(LOINC) Globulin 2.4 Low 2.5-4.2 G/dL LAB AG(LOINC) A/G Ratio 1.5 0.9-1.6 ratio LAB BILT(LOINC) Bili Total 0.20 0.20-1.20 mg/dL Result Comment: Use of this assay is not recommended for patients undergoing treatment with eltrombopag due to the potential for falsely elevated results. LAB AP(LOINC) Alk Phos 62 38-126 U/L LAB AST(LOINC) AST/SGOT 22 8-34 U/L LAB ALT(LOINC) ALT/SGPT 10 10-49 U/L Performed By: #### MDW, CMP, GFR, LAC, CBC, ADIFF, ANEU #### [place] [address] .GFR Collected: 05/03/2025 6:12 AM Status: F Source: [facility] TYPE CODE TESTS RESULT OUT OF RANGE REFERENCE UNITS LAB eGFR(LOINC) Estimated Glomerular Filtration Rate 84 ml/min/1. 73sqm Result Comment: Stages of Chronic Kidney Disease [...] calculate the eGFR results. Performed By: #### MDW, CMP, GFR, LAC, CBC, ADIFF, ANEU #### [address] [address] UA Collected: 05/03/2025 6:12 AM Status: F Source: [facility] TYPE CODE TESTS RESULT OUT OF RANGE REFERENCE UNITS LAB SPCUA(LOINC) UA Specimen Type Clean Catch LAB CLRUA(LOINC) UA Color Yellow LAB APPUA(LOINC) UA Appear Clear Clear LAB SGUA(LOINC) UA Spec Grav >=1.030 Abnormal 1.006-1.029 LAB GLUA(LOINC) UA Glucose Negative Negative mg/dL LAB BILUA(LOINC) UA Bili Negative Neg-Trace LAB KETUA(LOINC) UA Ketones Negative Neg-Trace mg/dL LAB BLDUA(LOINC) UA Blood Negative Neg-Trace LAB PHUA(LOINC) UA pH 6.5 5.0 - 8.0 LAB PROUA(LOINC) UA Protein Trace Negative mg/dL LAB UROUA(LOINC) UA Urobilinogen 0.2 0.2-1.0 E.U ./dL LAB NITUA(LOINC) UA Nitrite Negative Negative LAB LEUUA(LOINC) UA Leuk Est Negative Negative Performed By: #### UA #### [address] [address] [address] ABDOMEN/PELVIS W Observed: 05/03/2025 1:30 AM Status: F Source: [place] [id number] Patient: TOR BERMANApril Phone#: : [phone] Age: 34 Gender: F Pt. Type: ER Account: [id number] Location: 052 Ordering: DR. AMANDA MEYERS Exam Date: 05/03/2025/1:13 Family Phys: Charge Code: 112662 Physician: [place] Order #: [id number] Dose#: [id number] PROCEDURE: CT ABDOMEN/PELVIS WITH CONTRAST COMPARISON: [facility], CT, ABDOMEN/PELVIS W CON, 05/17/2024, 19:58. [facility], CT, ABDOMEN/PELVIS W CON, 04/23/2024, 1:17. [facility], CT, ABDOMEN/PELVIS W CON, 04/25/2024, 4:08. [facility], CT, ABDOMEN/PELVIS W CON, 04/04/2020, 17:51. [facility], CT, ABDOMEN/PELVIS W/O CON, 04/03/2025, 11:38. INDICATIONS: Abdominal pain. TECHNIQUE: After obtaining the patient's consent, CT images were created with non-ionic intravenous contrast material. All CT scans at this facility use dose modulation, iterative reconstruction, and/or weight based dosing when appropriate to reduce radiation dose to as low as reasonably achievable. IV CONTRAST: Omnipaque 350,80ml TOTAL DOSE: 9.0 CTDIvol(mGy) FINDINGS: LIVER: Stable two small low attenuation lesions measuring approximately 0.4 mm, unchanged compared to 2023. No enlargement, atrophy, or significant focal lesion. BILIARY: Gallbladder is present PANCREAS: Normal. No lesion, fluid collection, ductal dilatation, or atrophy. SPLEEN: Normal. No enlargement or focal lesion. KIDNEYS: Left percutaneous nephrostomy tube with pigtail in the left kidney. There is left renal parenchymal thinning. Left upper pole and left mid pole renal scarring. Air within the renal collecting system likely secondary to nephrostomy. Right kidney demonstrates uniform enhancement. No hydronephrosis. ADRENALS: Normal. No mass or enlargement. AORTA/VASCULAR: No aortic aneurysm. There are scattered atherosclerotic calcifications of the aorta. RETROPERITONEUM: Normal. No mass or adenopathy. Continued Report - Page 2 of 2 Patient: TOR BERMAN Phone#: : [phone] Age: 34 Gender: F Pt. Type: ER Account: [id number] Location: 052 Ordering: DR. AMANDA MEYERS Exam Date: 05/03/2025/1:13 Family Phys: Charge Code: [id number] Physician: Ingham Order #: [id number] Dose#: [id number] BOWEL/MESENTERY: No bowel obstruction or dilatation. No significant stool burden. The appendix is not visualized. Distal colonic thickening versus underdistention. ABDOMINAL WALL: Normal. No mass or hernia. URINARY BLADDER: Urinary bladder is decompressed. PELVIC NODES: Normal. No adenopathy. PELVIC ORGANS: Uterus is not visualized. No adnexal mass. BONES: Normal. No bony lesion or fracture. LUNG BASES: Normal. No visible pulmonary or pleural disease. OTHER: Negative. CONCLUSION: 1. Distal colonic wall thickening may represent underdistention versus colitis. Dictated by: Stacey Watt MD on 05/03/2025 at 9:33 Approved by: Stacey Watt MD on 05/03/2025 at 11:51 URINALYSIS Collected: 05/03/2025 1:10 AM Status: F Source: [facility] TYPE CODE TESTS RESULT OUT OF RANGE REFERENCE UNITS LAB URINALYSIS(LOIN C) URINALYSIS Result Comment: URINALYSIS LAB Specimen Type(LOINC) Specimen Type R Result Comment: BLADDER LAB Color(LOINC) Color YELLOW NORMAL: YELLOW LAB Clarity(LOINC) Clarity CLEAR NORMAL: CLEAR LAB ph(LOINC) ph 6.0 NORMAL: 5.0-8.0 LAB Protein(LOINC) Protein NEGATIVE RAJIV L: NEGATIVE LAB Glucose(LOINC) Glucose NORM RAJIV L: NORMAL LAB Ketone(LOINC) Ketone NEGATIVE NORMAL : NEGATIVE LAB Bilirubin(LOINC ) Bilirubin NEGATIVE NORMAL: NEGATIVE LAB Blood(LOINC) Blood NEGATIVE NORMAL: NEGATIVE LAB Urobilinog(LOIN C) Urobilinog NORMAL NORMAL: NORMAL LAB Sp Stem(LOINC) Sp Stem 1.010 NORMAL: 1.010-1.030 LAB Nitrite(LOINC) Nitrite NEGATIVE RAJIV L: NEGATIVE LAB Leukocytes(LOIN C) Leukocytes NEGATIVE NORMAL: NEGATIVE LAB Microscopic(ISAIAH NC) Microscopic NOT INDICATED Performed By: #### [id number] ## ## [facility],[address] [place] [address] URINALYSIS Collected: 1:10 AM Status: F Source: [facility] TYPE CODE TESTS RESULT OUT OF RANGE REFERENCE UNITS LAB URINALYSIS(ISAIAH NC) URINALYSIS Result Comment: URINALYSIS LAB Specimen Type(LOINC) Specimen Type R Result Comment: NEPHROSTOMY LAB Color(LOINC) Color YELLOW NORMAL: YELLOW LAB Clarity(LOINC) Clarity SL. CLOUDY Abnormal NORM AL: CLEAR LAB ph(LOINC) ph 7.0 NORMAL: 5.0-8.0 LAB Protein(LOINC) Protein 30 Abnormal RAJIV L: NEGATIVE LAB Glucose(LOINC) Glucose NORM RAJIV L: NORMAL LAB Ketone(LOINC) Ketone NEGATIVE NORMAL : NEGATIVE LAB Bilirubin(LOIN C) Bilirubin NEGATIVE NORMAL: NEGATIVE LAB Blood(LOINC) Blood 150 Abnormal NORMAL: NEGATIVE LAB Urobilinog(ISAIAH NC) Urobilinog NORMAL NORMAL: NORMAL LAB Sp Stem(LOINC) Sp Stem 1.005 Low NORMAL: 1.010-1.030 LAB Nitrite(LOINC) Nitrite NEGATIVE RAJIV L: NEGATIVE LAB Leukocytes(ISAIAH NC) Leukocytes 500 Abnormal NORMAL: NEGATIVE LAB Microscopic(LO INC) Microscopic SEE BELOW Result Comment: MICROSCOPIC LAB Wbc(LOINC) Wbc 6-10 0-5/hpf LAB Rbc(LOINC) Rbc 0-5 0-3/hpf LAB Casts(LOINC) Casts NONE LAB Crystals(LOINC ) Crystals NONE LAB Amorphous(LOIN C) Amorphous 2+ LAB Bacteria(LOINC ) Bacteria 2+ LAB Epi Cells(LOINC) Epi Cells NONE LAB Mucous(LOINC) Mucous NONE LAB Yeast(LOINC) Yeast NONE Performed By: #### [id number] ## ## [facility],[address] [place] [address] URINE Collected: 05/03/2025 1:10 AM Status : F Source: [facility] TYPE CODE TESTS RESULT OUT OF RANGE REFERENCE UNITS LAB UR(LOINC) UR NEGATIVE NEGATIVE LAB INTERNAL QC(LOINC) INTERNAL QC PASS LAB EXTERNAL QC DONE?(LOINC) EXTERNAL QC DONE? YES Result Comment: Very dilute urine specimens, as indicated by a low specific gravity, may not contain training representative levels of hCG. If is still suspected, a first morning urine specimen should be collected 48 hours later and tested. Performed By: #### [id number] ## ## [facility],[address] [place] [address] URINE CULTURE [CCL] Observed: 05/03/2025 1:10 AM Status: F Source: [facility] URCUL See Results Below See Below CULTURE, URINE MIXED MICROBIOTA INCLUDING 4 DIFFERENT COLONY TYPES, AND NO ONE TYPE >=100,000 CFU/ml Mixed microbiota including 4 different colony types, and no one SOURCE: Urine, Nephrostomy [facility] [address] [place] [address] Joao Alvarenga III, M.D. [id number] SEND TO NO Performed By: #### [id number] ## ## [address] [address] CBC + DIFF Collected: 12:23 AM Status: F Source: [facility] TYPE CODE TESTS RESULT OUT OF RANGE REFERENCE UNITS LAB CBC + DIFF(LOINC) CBC + DIFF Result Comment: CBC-COMPLETE BLOOD COUNT LAB WBC(LOINC) WBC 9.9 4.5 - 10.8 x 10EE3/UL LAB RBC(LOINC) RBC 3.87 Low 4.10 - 5.30 x 10EE6/UL LAB HEMOGLOBIN(ISAIAH NC) HEMOGLOBIN 13.0 12.0 - 16.0 g/dl LAB HEMATOCRIT(ISAIAH NC) HEMATOCRIT 37.3 34.0 - 46.0 % LAB MCV(LOINC) MCV 96 80 - 99 fl LAB MCH(LOINC) MCH 34 High 27 - 33 pg LAB MCHC(LOINC) MCHC 35 32 - 36 X10 3 LAB RDW/CV(LOINC) RDW/CV 13.8 12.0 - 15.6 % LAB PLATELET(LOINC ) PLATELET 371 150 - 450 x10EE3/UL LAB MPV(LOINC) MPV 6.7 6.6 - 10.5 fl Result Comment: AUTOMATED DI FFERENTIAL LAB NEUT %(LOINC) NEUT % 65.1 46.0 - 76.0 % LAB LYMPH %(LOINC) LYMPH % 23.2 20.0 - 45.0 % LAB MONOS %(LOINC) MONOS % 9.0 0.0 - 10.0 % LAB EO %(LOINC) EO % 2.4 0.0 - 7.0 % LAB BASO %(LOINC) BASO % 0.4 0.0 - 2.0 % LAB Lymph #(LOINC) Lymph # 2.29 0.80 - 2.80 x10EE 3/UL LAB Neut #(LOINC) Neut # 6.41 1.50 - 7.10 x10EE3 /UL LAB Green #(LOINC) Green # 0.89 0.20 - 1.00 x10EE3 /UL LAB EO #(LOINC) EO # 0.23 0.00 - 0.50 x10EE3/U L LAB Baso #([facility]) Baso # 0.04 0.00 - 0.10 x10EE3 /UL LAB MANUAL DIFF(INC) MANUAL DIFF N/A LAB MORPHOLOGY(ISAIAH NC) MORPHOLOGY N/A Performed By: #### [id number] ## ## [facility],[address] [place] [address] CMP WITH EGFR Collected: 5 12:23 AM Status: F Source: [facility] TYPE CODE TESTS RESULT OUT OF RANGE REFERENCE UNITS LAB CMP with eGFR(INC) CMP with eGFR Result Comment: COMPREHENSIV E METABOLIC PANEL LAB SODIUM(LOINC) SODIUM 140 136 - 145 mmol/l LAB POTASSIUM(LOIN C) POTASSIUM 3.3 Low 3.5 - 5.1 mmol/L LAB CHLORIDE(LOINC ) CHLORIDE 103 98 - 107 mmol/L LAB CO2(LOINC) CO2 25.4 21.0 - 32.0 mmol/L LAB GLUCOSE(LOINC) GLUCOSE 109 High 74 - 106 mg/dl LAB BUN(LOINC) BUN 7 7 - 18 mg/dl LAB CREATININE(ISAIAH NC) CREATININE 0.99 0.55 - 1.02 mg/dl LAB AST/SGOT(LOINC ) AST/SGOT 11 Low 13 - 39 U/L LAB ALK PHOS(LOINC) ALK PHOS 74 46 - 116 U/L LAB CALCIUM(LOINC) CALCIUM 8.8 8.5 - 10.1 mg/dl LAB TOTAL PROTEIN(LOINC) TOTAL PROTEIN 6.7 6.4 - 8.2 g/dl LAB ALBUMIN(LOINC) ALBUMIN 3.4 3.4 - 5.0 g/dL LAB GLOBULIN(LOINC ) GLOBULIN 3.3 1.5 - 3.8 G/DL LAB A/G RATIO(LOINC) A/G RATIO 1.0 0.9 - 1.6 LAB TOTAL BILI(LOINC) TOTAL BILI 0.5 0.2 - 1.0 mg/dl LAB B/C RATIO(LOINC) B/C RATIO 7 0 - 30 ratio LAB ALT/SGPT(LOINC ) ALT/SGPT 20 16 - 63 U/L LAB ANION GAP(LOINC) ANION GAP 15 10 - 20 mmol/L LAB AGE(LOINC) AGE 34 years LAB eGFR(LOINC) eGFR >60 60 - 999 ML/MINUT E LAB eGFR(AA)(LOINC ) eGFR(AA) >60 60 - 999 ML/MINUT E Result Comment: ACCORDING TO THE NATIONAL KIDNEY DISEASE EDUCATION PROGRAM(NKDE), A NORMAL eGFR IS A VALUE GREATER THAN OR EQUAL TO 60 ML/MIN/1.73 SQ METERS. CHRONIC KIDNEY DISEASE: <60mL/MIN/1.73 SQ METERS KIDNEY FAILURE: <15mL/MIN/1.73 SQ METERS THIS TEST SHOULD ONLY BE USED FOR PATIENTS 18 YEARS OF AGE AND OLDER. Performed By: #### [id number] ## ## [address] [address] LIPASE Collected: 12:23 AM Status: F Source: [facility] TYPE CODE TESTS RESULT OUT OF RANGE REFERENCE UNITS LAB LIPASE([facility]) LIPASE 104.0 High 15.0 - 78.0 U/L Result Comment: *PLEASE NOTE THAT RANGES FOR LIPASE HAVE CHANGED OF 10/31/23 DUE TO AN ASSAY UPDATE BY THE ELECTRONICS ENGINEERING TECHNOLOGIST.THE NEW ASSAY RANGE IS 6-250 U/L, WITH A REFERENCE RANGE OF 16-77 U/L. Performed By: #### [id number] ## ## [address] [address] ED ORDER SHEET (CPOE ONLY) Observed: 11:51 PM Status: C Source: [facility] Order Sheet Order Sheet [address] [place] [address] [id number] 05/02/2025 Patient: TOR BERMAN Sex: Female : 1990 Age: 34y MEASUREMENTS: Wt: 51.7 kg, Ht/Aden: 64.0 in, BMI: 19.57 ALLERGIES: Haldol, Penicillins MEDICATION/IV/DRIP/FLUID ORDERS Order Description Priority Entered Acknowledged Completed Zofran IVP4 mg (NOW x1) 00:06 05/03/2025 00:12 00:28 Petra LeslieOApril 05/03/2025 05/03/2025 Yohana Melvin, R.N. IV NS 0.9 %1000 mL at 999 00:06 05/03/2025 00:12 00:27 mL/hr (NOW x1) Petra LeslieOApril 05/03/2025 05/03/2025 Yohana Melvin, R.N. HYDROmorphone (Dilaudid) 00:06 05/03/2025 00:12 00:29 IVP0.5 mg (NOW x1, HIGH Wilfrido Leslie.O. 05/03/2025 05/03/2025 ALERT MEDICATION) Yohana Melvin, RAprilNApril potassium chloride PO Liq 01:20 05/03/2025 01:59 02:09 20mEq/15ml40 mEq (NOW x1) Wilfrido Leslie.O. 05/03/2025 05/03/2025 Yohana Melvin, R.N. KetorOLAC (Toradol) IVP15 mg 01:35 05/03/2025 01:59 02:06 (NOW x1) Wilfrido Leslie.OApril 05/03/2025 05/03/2025 Yohana Melvin, R.NApril 1 of 3 Order Sheet HYDROmorphone (Dilaudid) 02:21 05/03/2025 02:24 02:27 IVP0.5 mg (NOW x1, HIGH Gabby Meyers D.O. 05/03/2025 05/03/2025 ALERT MEDICATION) Yohana Melvin R.N. Reason for ordering with alerts: Clinical consideration given --02:21 05/03/2025 Gabby Meyers D.O. CefTRIAXone (Rocephin) IVPB 02:47 05/03/2025 02:48 02:54 2gm/50ml NS2 g diluted in Gabby Meyers D.O. 05/03/2025 05/03/2025 sodium chloride IVPB 0.9 % Yohana Melvin R.N. Minibag+ 50 mL at 100 mL/hr (NOW x1) Reason for ordering with alerts: Clinical consideration given --02:47 05/03/2025 Gabby Meyers D.O. LAB ORDERS Order Description Priority Entered Acknowledged Collected Completed CBC w Diff Stat Stat 00:06 05/03/2025 00:11 05/03/2025 00:23 05/03/2025 Luzma Leslie R.N. Seth Lapp, R.N. D.OApril CMP Stat Stat 00:06 05/03/2025 00:11 05/03/2025 00:23 05/03/2025 Luzma Leslie R.N. Seth Lapp, R.N. D.O. Lipase Stat Stat 00:06 05/03/2025 00:11 05/03/2025 00:23 05/03/2025 Luzma Leslie R.N. Seth Lapp, R.N. D.OApril Urinalysis Stat Stat 00:06 05/03/2025 00:23 05/03/2025 01:59 05/03/2025 Luzma Leslie R.N. Seth Lapp, R.N. D.OApril Urine - HCG Stat 00:06 05/03/2025 00:11 05/03/2025 00:23 05/03/2025 Stat Luzma Leslie R.N. Seth Lapp, R.N. D.O. 2 of 3 Order Sheet Urinalysis Stat Stat 00:12 05/03/2025 00:29 05/03/2025 02:00 05/03/2025 GabbyLuzma Urbina R.N. Seth Lapp, R.N. D.O. Order Comments: 00:12 05/03/2025: (nephrostomy tube specimen) Gabby Meyers D.O. Urine Culture [CCL] Stat Stat 03:08 05/03/2025 03:10 05/03/2025 Luzma Leslie R.N. D.O. DIAGNOSTIC STUDY ORDERS Order Description Priority Entered Acknowledged Completed CT ABD/PEL w Cont Stat Stat 00:06 05/03/2025 00:12 02:00 Gabby Meyers D.O. 05/03/2025 05/03/2025 Yohana Melvin R.N. Order Comments: 00:05 05/03/2025: Status: Unknown. Gabby Meyers D.O. Reason for Study: Abdominal Pain,llq and l flank STAFF ORDERS Order Description Priority Entered Acknowledged Collected Completed IV Saline Lock 00:06 05/03/2025 00:12 05/03/2025 Luzma Leslie R.N. D.O. [Electronically signed by Gabby Meyers D.O. (05/03/2025 03:33 EDT)] 3 of 3 ED PHYSICIAN CLINICAL REPORT Observed: 0 05/02/2025 11:51 PM Status: C Source: [facility] Narrative Physician Clinical Narrative [address] [address] [id number] 05/02/2025 23:51:00 Patient: TOR BERMAN Sex: Female : 1990 Age: 34y Measurements Wt: 51.7 kg, Ht/Aden: 64.0 in, BMI: 19.57 Initial Vital Sign Measured Time BP MAP HR RR O2Sat ETCO2 Temp Pain GCS RTS 00:08 05/03/2025 114/83 93 90 18 98% 98.2 F 8 Time Seen: 00:01 05/03/2025. Arrived- By private vehicle. Historian- patient. HISTORY OF PRESENT ILLNESS Chief Complaint: ABDOMINAL PAIN and FLANK PAIN. This started today 34-year-old female presents to the ED for left-sided abdomen and flank pain. She reports she has had this in the past however it acutely worsened today. She does take at home oxycodone as needed, so took 2 tablets this evening without any relief therefore came to ED. does report nausea and decreased appetite however he is tolerating p.o. intake. No vomiting. But she is having normal bowel movements. Does not have any dysuria or urinary frequency. No noted hematuria. Does have a left-sided nephrostomy tube the which she reports is in good placement and has good output. She was supposed to have her nephrostomy tube exchange on April 13 however missed appointment because she has been under increased life stress. She does follow up at [facility] for nephrostomy care and had contacted them, they are supposed to call her this week with an appointment time for the exchange. She denies fevers, chills, body aches. No other concerns at this time. 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 It has also had passed left-sided ureterolithiasis. Denies any other abdominal surgeries. Has had a colonoscopy with no noted abnormalities per patient. and is still present. It is described as located in the lower abdomen, in the suprapubic area and in the left abdomen and left lower quadrant and the left flank. The patient has had nausea and loss of appetite. No vomiting or diarrhea. 1 of 15 Narrative Similar symptoms previously. Recent medical care: The patient was seen recently at this facility. REVIEW OF SYSTEMS GI: No constipation, hematemesis or bloody stools. CONSTITUTIONAL: No fever or chills. CVS: No chest pain. RESPIRATORY: No difficulty breathing. : No difficulty with urination or pain with urination. All other systems reviewed and are negative. Status: Unknown. PAST HISTORY See nurses notes. Anxiety disorder Cancer: (stage 3 cervicle. Currently in remission) Depression Renal Failure: (Left kidney only) Surgeries: cervicle biopsy nephrostomy tube Medications: lexapro: 20 mg once a day . Lorazepam Intensol 2 mg/mL oral concentrate: 1 mg three times a day . oxycodone 10 mg tablet: 10 mg every 6 hours . zofran: 4 mg every 6 hours . Allergies: Haldol Penicillins SOCIAL HISTORY Resides in a house. 2 of 15 Narrative FAMILY HISTORY Negative. ADDITIONAL NOTES The nursing notes have been reviewed. PHYSICAL EXAM Vital Signs: Have been reviewed. Appearance: Alert. No acute distress. Eyes: Pupils equal, round and reactive to light. Eyes normal inspection. ENT: Nose normal. Pharynx normal. Neck: Normal inspection. Neck supple. CVS: Normal heart rate and rhythm. Heart sounds normal. Respiratory: No respiratory distress. Painless inspiration. Breath sounds normal. Abdomen: Soft. Tenderness in the left lower quadrant. Additional tenderness in the suprapubic area. Bowel sounds normal. Mass present. No rebound tenderness or guarding. Back: Normal inspection. Mild CVA tenderness on the left. Skin: Normal skin color. Normal skin turgor. Extremities: Extremities exhibit normal ROM. No lower extremity edema. Neuro: No alteration in mental status. No motor deficit. No sensory deficit. LABS, X-RAYS, AND EKG Laboratory Tests: CBC + DIFF Final BINA: 05/03/2025 00:23:00 EDT MsgRcvd: 05/03/2025 00:34 EDT Lab Test Result Reference Status Received Comments 05/03/2025 00:34 CBC-COMPLETE CBC + DIFF Final EDT BLOOD COUNT 3 of 15 Narrative Lab Test Result Reference Status Received Comments 05/03/2025 00:34 WBC 9.9 x 10/UL 4.5 - 10.8 Final EDT 3.87 x 10/UL 05/03/2025 00:34 RBC 4.10 - 5.30 Final Below low normal EDT 05/03/2025 00:34 HEMOGLOBIN 13.0 g/dl 12.0 - 16.0 Final EDT 05/03/2025 00:34 HEMATOCRIT 37.3 % 34.0 - 46.0 Final EDT 05/03/2025 00:34 MCV 96 fl 80 - 99 Final EDT 34 pg 05/03/2025 00:34 MCH 27 - 33 Final Above high normal EDT 05/03/2025 00:34 MCHC 35 X10 3 32 - 36 Final EDT 05/03/2025 00:34 RDW/CV 13.8 % 12.0 - 15.6 Final EDT 05/03/2025 00:34 PLATELET 371 x10/UL 150 - 450 Final EDT 05/03/2025 00:34 AUTOMATED MPV 6.7 fl 6.6 - 10.5 Final EDT DIFFERENTIAL 05/03/2025 00:34 NEUT % 65.1 % 46.0 - 76.0 Final EDT 05/03/2025 00:34 LYMPH % 23.2 % 20.0 - 45.0 Final EDT 05/03/2025 00:34 MONOS % 9.0 % 0.0 - 10.0 Final EDT 4 of 15 Narrative Lab Test Result Reference Status Received Comments 05/03/2025 00:34 EO % 2.4 % 0.0 - 7.0 Final EDT 05/03/2025 00:34 BASO % 0.4 % 0.0 - 2.0 Final EDT 05/03/2025 00:34 Lymph # 2.29 x10/UL 0.80 - 2.80 Final EDT 05/03/2025 00:34 Neut # 6.41 x10/UL 1.50 - 7.10 Final EDT 05/03/2025 00:34 Green # 0.89 x10/UL 0.20 - 1.00 Final EDT 05/03/2025 00:34 EO # 0.23 x10/UL 0.00 - 0.50 Final EDT 05/03/2025 00:34 Baso # 0.04 x10/UL 0.00 - 0.10 Final EDT 05/03/2025 00:34 MANUAL DIFF N/A New Order EDT 05/03/2025 00:34 MORPHOLOGY N/A New Order EDT CMP with eGFR Final BINA: 05/03/2025 00:23:00 EDT MsgRcvd: 05/03/2025 00:55 EDT Lab Test Result Reference Status Received Comments COMPREHENSIVE 05/03/2025 CMP with eGFR Final METABOLIC 00:55 EDT PANEL 05/03/2025 SODIUM 140 mmol/l 136 - 145 Final 00:55 EDT 5 of 15 Narrative Lab Test Result Reference Status Received Comments 3.3 mmol/L 05/03/2025 POTASSIUM 3.5 - 5.1 Final Below low normal 00:55 EDT 05/03/2025 CHLORIDE 103 mmol/L 98 - 107 Final 00:55 EDT 05/03/2025 CO2 25.4 mmol/L 21.0 - 32.0 Final 00:55 EDT 109 mg/dl 05/03/2025 GLUCOSE Above high 74 - 106 Final 00:55 EDT normal 05/03/2025 BUN 7 mg/dl 7 - 18 Final 00:55 EDT 05/03/2025 CREATININE 0.99 mg/dl 0.55 - 1.02 Final 00:55 EDT 11 U/L 05/03/2025 AST/SGOT 13 - 39 Final Below low normal 00:55 EDT 05/03/2025 ALK PHOS 74 U/L 46 - 116 Final 00:55 EDT 05/03/2025 CALCIUM 8.8 mg/dl 8.5 - 10.1 Final 00:55 EDT TOTAL 05/03/2025 6.7 g/dl 6.4 - 8.2 Final PROTEIN 00:55 EDT 05/03/2025 ALBUMIN 3.4 g/dL 3.4 - 5.0 Final 00:55 EDT 05/03/2025 GLOBULIN 3.3 G/DL 1.5 - 3.8 Final 00:55 EDT 05/03/2025 A/G RATIO 1.0 0.9 - 1.6 Final 00:55 EDT 6 of 15 Narrative Lab Test Result Reference Status Received Comments 05/03/2025 TOTAL BILI 0.5 mg/dl 0.2 - 1.0 Final 00:55 EDT 05/03/2025 B/C RATIO 7 ratio 0 - 30 Final 00:55 EDT 05/03/2025 ALT/SGPT 20 U/L 16 - 63 Final 00:55 EDT 05/03/2025 ANION GAP 15 mmol/L 10 - 20 Final 00:55 EDT 05/03/2025 AGE 34 years Final 00:55 EDT 05/03/2025 eGFR >60 ML/MINUTE 60 - 999 Final 00:55 EDT 7 of 15 Narrative Lab Test Result Reference Status Received Comments ACCORDING TO THE NATIONAL KIDNEY DISEASE EDUCATION PROGRAM(NKDE), A NORMAL eGFR IS A VALUE GREATER THAN OR EQUAL TO 60 ML/MIN/1.73 SQ METERS. 05/03/2025 CHRONIC KIDNEY eGFR(AA) >60 ML/MINUTE 60 - 999 Final 00:55 EDT DISEASE: <60mL/MIN/1.73 SQ METERS KIDNEY FAILURE: <15mL/MIN/1.73 SQ METERS THIS TEST SHOULD ONLY BE USED FOR PATIENTS 18 YEARS OF AGE AND OLDER. LIPASE Final BINA: 05/03/2025 00:23:00 EDT MsgRcvd: 05/03/2025 00:55 EDT Lab Test Result Reference Status Received Comments 8 of 15 Narrative Lab Test Result Reference Status Received Comments *PLEASE NOTE THAT RANGES FOR LIPASE HAVE CHANGED OF 10/31/23 DUE TO 104.0 U/L AN ASSAY 05/03/2025 LIPASE Above high 15.0 - 78.0 Final UPDATE BY THE 00:55 EDT normal ELECTRONICS ENGINEERING TECHNOLOGIST.THE NEW ASSAY RANGE IS 6-250 U/L, WITH A REFERENCE RANGE OF 16-77 U/L. URINE Final BINA: 05/03/2025 01:10:00 EDT MsgRcvd: 05/03/2025 01:34 EDT Lab Test Result Reference Status Received Comments 05/03/2025 01:34 NEGATIVE NEGATIVE Final UR EDT 05/03/2025 01:34 INTERNAL QC PASS Final EDT 9 of 15 Narrative Lab Test Result Reference Status Received Comments Very dilute urine specimens, as indicated by a low specific gravity, may not contain training representative EXTERNAL QC 05/03/2025 01:34 YES Final levels of hCG. If DONE? EDT is still suspected, a first morning urine specimen should be collected 48 hours later and tested. URINALYSIS Final BINA: 05/03/2025 01:10:00 EDT MsgRcvd: 05/03/2025 01:33 EDT Lab Test Result Reference Status Received Comments 05/03/2025 01:33 URINALYSIS Final URINALYSIS EDT 05/03/2025 01:33 Specimen Type R New Order BLADDER EDT NORMAL: 05/03/2025 01:33 Color YELLOW Final YELLOW EDT NORMAL: 05/03/2025 01:33 Clarity CLEAR Final CLEAR EDT NORMAL: 05/03/2025 01:33 ph 6.0 Final 5.0-8.0 EDT 10 of 15 Narrative Lab Test Result Reference Status Received Comments NORMAL: 05/03/2025 01:33 Protein NEGATIVE Final NEGATIVE EDT NORMAL: 05/03/2025 01:33 Glucose NORM Final NORMAL EDT NORMAL: 05/03/2025 01:33 Ketone NEGATIVE Final NEGATIVE EDT NORMAL: 05/03/2025 01:33 Bilirubin NEGATIVE Final NEGATIVE EDT NORMAL: 05/03/2025 01:33 Blood NEGATIVE Final NEGATIVE EDT NORMAL: 05/03/2025 01:33 Urobilinog NORMAL Final NORMAL EDT NORMAL: 05/03/2025 01:33 Sp Stem 1.010 Final 1.010-1.030 EDT NORMAL: 05/03/2025 01:33 Nitrite NEGATIVE Final NEGATIVE EDT NORMAL: 05/03/2025 01:33 Leukocytes NEGATIVE Final NEGATIVE EDT 05/03/2025 01:33 Microscopic NOT INDICATED Final EDT URINALYSIS Final BINA: 05/03/2025 01:10:00 EDT MsgRcvd: 05/03/2025 01:47 EDT Lab Test Result Reference Status Received Comments 05/03/2025 01:47 URINALYSIS Final URINALYSIS EDT 11 of 15 Narrative Lab Test Result Reference Status Received Comments 05/03/2025 01:47 Specimen Type R New Order NEPHROSTOMY EDT NORMAL: 05/03/2025 01:47 Color YELLOW Final YELLOW EDT SL. CLOUDY NORMAL: 05/03/2025 01:47 Clarity Final Abnormal CLEAR EDT NORMAL: 05/03/2025 01:47 ph 7.0 Final 5.0-8.0 EDT 30 NORMAL: 05/03/2025 01:47 Protein Final Abnormal NEGATIVE EDT NORMAL: 05/03/2025 01:47 Glucose NORM Final NORMAL EDT NORMAL: 05/03/2025 01:47 Ketone NEGATIVE Final NEGATIVE EDT NORMAL: 05/03/2025 01:47 Bilirubin NEGATIVE Final NEGATIVE EDT 150 NORMAL: 05/03/2025 01:47 Blood Final Abnormal NEGATIVE EDT NORMAL: 05/03/2025 01:47 Urobilinog NORMAL Final NORMAL EDT 1.005 NORMAL: 05/03/2025 01:47 Sp Stem Final Below low normal 1.010-1.030 EDT NORMAL: 05/03/2025 01:47 Nitrite NEGATIVE Final NEGATIVE EDT 500 NORMAL: 05/03/2025 01:47 Leukocytes Final Abnormal NEGATIVE EDT 12 of 15 Narrative Lab Test Result Reference Status Received Comments 05/03/2025 01:47 Microscopic SEE BELOW Final MICROSCOPIC EDT 05/03/2025 01:47 Wbc 6-10 0-5/hpf Final EDT 05/03/2025 01:47 Rbc 0-5 0-3/hpf Final EDT 05/03/2025 01:47 Casts NONE Final EDT 05/03/2025 01:47 Crystals NONE Final EDT 05/03/2025 01:47 Amorphous 2+ Final EDT 05/03/2025 01:47 Bacteria 2+ Final EDT 05/03/2025 01:47 Epi Cells NONE Final EDT 05/03/2025 01:47 Mucous NONE Final EDT 05/03/2025 01:47 Yeast NONE Final EDT PROGRESS AND PROCEDURES MEDICAL DECISION MAKING: (Patient was evaluated in ED for left-sided flank pain. Did have radiation into the abdomen. She has past history of left-sided nephrostomy tube which occurred due to spread of cervical cancer to her left kidney causing obstruction. She is currently reported to be in remission from her cancer. She was afebrile and hemodynamically stable. She was reporting significant pain level, was given Dilaudid x2, Toradol, IV fluids. Workup obtained to evaluate for possible UTI /pyelonephritis, urolithiasis, renal abscess, colitis, diverticulitis, other intra-abdominal process. She had a CT abdomen pelvis which showed left percutaneous nephrostomy tube with locules of gas in the collecting system concerning for emphysematous 13 of 15 Narrative pyelitis as the urinalysis results from nephrostomy tube sample shows evidence of UTI and patient does have significant left-sided flank pain. She did have possible mild colitis versus under distention of the distal colonic wall however this is less likely to be her primary issue at this time as her pain is more localizing to flank in HPI more consistent with left-sided pyelonephritis. She was due for a nephrostomy tube exchange 2 weeks ago but missed her appointment this may be contributing to her current infection and likely needs source control with a tube exchange for full resolution. She was covered with Rocephin and urine culture sent. Recommended patient be transferred to [facility] for access to Urology, Interventional Radiology, higher level of care. after discussion with patient, she reported that she did not wish to be transferred from our ED at this time. Reported that she needed to go home to take care of her pets she does not have anyone to assist her with them and wants to get then situated before being admitted to the hospital. She was of baseline mentation and completely alert/oriented, she understood all of her results as we discuss them as well as the indications for transfer and need for higher level of care. She reports that her father is available to give her a ride home and then she will go to [facility] ED which she will give her a ride for as well and check in there for repeat evaluation. She was given a copy of all of her lab studies from today as well as CT report in disc to assist in streamlining her care despite her leaving ED AMA. She was advised that she may return to our ED at any time if she were to worsen or have difficulties with transportation elsewhere. all of her questions were answered and she left ED AMA.). Disposition: Condition: stable. CLINICAL IMPRESSION Acute urinary tract infection with pyelonephritis and hematuria associated with indwelling catheter. DISCHARGE INSTRUCTIONS AMA warnings: Time of assessment: 03:18 05/03/2025. Oriented to person, place, and time. Gives appropriate answers and rational explanation of refusal of care. No indication for involuntary commitment is present, signs of psychosis, slurred speech or tangential thinking. Speaks coherently. Abstract thinking intact. Clinical Impression: the patient has the capacity to make decisions regarding the medical care offered. Relevant issues reviewed and discussed with the patient. Aware of suspected diagnosis suggested by screening exam. 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 Acknowledges understanding of the reasons for recommendations regarding medical treatment, procedures, admission to facility and transfer to other medical facility. The recommended medical care being refused is Transfer to [facility] for access to higher level of care, urologist, IR for nephrostomy tube exchange (2 weeks past due for exchange, complicated uti with emphysematous pyelonephritis). The risks of refusing recommended care that were disclosed and acknowledged are , loss of limb and loss of current lifestyle. Discharge instructions were provided to the patient. ( Patient given 14 of 15 Narrative copies of all lab results and CT report along with disc. States she will go to [facility] later this morning to their ED after caring for her pets). REFUSAL OF CARE STATEMENT (patient to review and sign in discharge instructions): I have read this paragraph. I understand that a doctor at this [facility] wants to give me certain medical care. The doctor explained that care to me, and I understand what that care is. The doctor also explained to me what could happen to me if I leave here without having that care, and I understand what he said. I know that I am welcome to return to this hospital at any time to receive the recommended care or any other care that I may need at any time, regardless of my ability to pay for such care. (Electronically signed by Gabby Meyers D.O. 05/03/25 03:33:14 EDT) Generated by [facility] 15 of 15 ED VITALS FLOW SHEET Observed: 11:51 PM Status: C Source: [facility] Vitals Vital Sign Flow Sheet [address] [address] [id number] 05/02/2025 Patient: TOR BERMAN Sex: Female : 1990 Age: 34y Measurements Wt: 51.7 kg, Ht/Aden: 64.0 in, BMI: 19.57 Measured Time BP MAP HR RR O2Sat ETCO2 Temp Pain GCS RTS 03:21 05/03/2025 124/68 87 76 18 98% 98.2 F 3 00:08 05/03/2025 114/83 93 90 18 98% 98.2 F 8 1 of 1 ED NURSES CLINICAL NOTE Observed: 2024 11:51 PM Status: C Source: [facility] Nurse Narrative Nurse Clinical Narrative [address] [address] [phone] 05/02/2025 23:51:00 Patient: TOR BERMAN Sex: Female : 1990 Age: 34y Disposition: Left AMA Left Against Medical Advice Disposition Decision Time: 03:29 05/03/2025 Departure Time: 03:31 05/03/2025 TRIAGE Arrived by private vehicle. Historian: (patient). Primary physician (Sanjeev). ( L flank pain, generalized abd pain, states was scheduled for nephrostomy replacement on april 13, missed it, has not had it replaced yet.). Triage time: 23:59 05/02/2025. Acuity: LEVEL 3. Chief Complaint: ABDOMINAL PAIN. This started today. SEPSIS SCREEN: NEGATIVE. SIRS criteria negative. No possible sources of infection. -- 00:05/03/25 EDT Luzma Farah R.N. 00:05/03/25. BP: 114/83 MAP: 93. HR: 90. RR: 18. O2 saturation: 98% Temperature: 98.2 F. Pain level now 8/10. -- 00:05/03/25 EDT Luzma Farah R.N. Measurements: 00:05/03/25 Wt: 51.7 kg, Ht/Aden: 64.0 in, BMI: 19.57 -- 00:05/03/25 EDT Luzma Farah R.N. Medications: zofran: 4 mg every 6 hours . -- 00:05/03/25 EDT Luzma Farah R.N. lexapro: 20 mg once a day . -- 00:05/03/25 EDT Luzma Farah R.N. Lorazepam Intensol 2 mg/mL oral concentrate: 1 mg three times a day . -- 00:05/03/25 EDT Luzma Farah R.N. 1 of 5 Nurse Narrative oxycodone 10 mg tablet: 10 mg every 6 hours . -- 00:05/03/25 EDT Luzma Farah R.N. 23:59 05/02/25. Preferred Pharmacy: ([facility]). -- 00:05/03/25 LILIANAT Luzma Farah R.N. Allergies: Penicillins -- 00:05/03/25 EDT Luzma Farah R.N. Haldol -- 00:05/03/25 EDT Luzma Farah R.N. Problems: Cancer. (stage 3 cervicle. Currently in remission) -- 00:05/03/25 EDT Luzma Farah R.N. Renal Failure. (Left kidney only) -- 00:05/03/25 EDT Luzma Farah R.N. Depression -- 00:05/03/25 EDT Luzma Farah R.N. Anxiety disorder -- 00:05/03/25 EDT Luzma Farah R.N. Surgeries: nephrostomy tube -- 00:05/03/25 GINNY Farah R.N. cervicle biopsy -- 00:10 05/03/25 GINNY Farah R.N. History 23:59 05/02/25. SOCIAL HX: Heavy tobacco smoker- less than 1 pack per day. Occasional alcohol use. Drug use: marijuana. The patient has not traveled outside the [place] Infectious disease exposure: No infectious disease exposure. ABUSE ASSESSMENT: The patient answered "yes" to the question(s) "Do you feel safe in your home?" and "no" to the question(s) "Are you afraid to go home?". SELF HARM ASSESSMENT: Self harm assessment was performed. The patient answered no to the question(s) "Have you recently felt down, depressed, or hopeless?" and "Do you have thoughts of harming or killing yourself?". NUTRITIONAL RISK ASSESSMENT: The nutritional risk assessment revealed no deficiencies. FUNCTIONAL ASSESSMENT: Functional assessment: no impairments noted. 2 of 5 Nurse Narrative LEARNING NEEDS ASSESSMENT: The learning needs assessment revealed no barriers. FALL RISK ASSESSMENT: Fall risk assessment completed. No risk factors identified. -- 00:08 05/03/25 GINNY Farah R.N. Interventions 23:59 05/02/25. Identification band on patient. -- 00:08 05/03/25 GINNY Farah R.N. PHYSICAL ASSESSMENT 00:41 05/03/25. Ambulatory to room. ( ABD PAIN, flank pain, states almost a month late of nephrostomy change,). GENERAL / NEURO / PSYCH: Alert. Oriented X 4. Appears in no acute distress. RESPIRATORY: Respirations not labored. CVS: Normal sinus rhythm noted. GI / : The patient has had nausea. -- 00:41 05/03/25 GINNY Farah R.N. NURSING PROGRESS NOTES 00:05/03/25. IV NS 0.9 % 1000 mL started in bag#1 1000 mL at 999 mL/hr via Site# 1. Allergies verified and confirmed 5 rights. IV patency established. IV site checked: no pain, redness, or swelling. IV flushed thoroughly pre-medication administration. Information reviewed with patient including reason for taking this medication. Verbalizes understanding. -- 00:27 05/03/25 GINNY Farah R.N. 00:05/03/25. Site #1 started in the right forearm with a 20g angiocath with aseptic technique and good blood return; 2 attempts. Blood drawn: rainbow set tube(s). Labeled in the presence of the patient and sent to the lab. Saline lock flushed with 5 mL saline. -- 00:05/03/25 EDCharlie Farah R.N. 00:05/03/25. Zofran IVP 4 mg given via Site# 1. Allergies verified and confirmed 5 rights. IV patency established. IV site checked: no pain, redness, or swelling. IV flushed thoroughly pre-medication administration. Information reviewed with patient including reason for taking this medication. Verbalizes understanding. -- 00:05/03/25 GINNY Farah RAprilN. 00:05/03/25. HYDROmorphone (Dilaudid) IVP 0.5 mg given via Site# 1. Allergies verified and confirmed 5 rights. IV patency established. IV site checked: no pain, redness, or swelling. IV flushed thoroughly pre-medication administration. Information reviewed with patient including reason for taking this medication. Verbalizes understanding. Medication Wastage: 0.5 mg wasted. -- 00:05/03/25 GINNY Farah R.N. 00:05/03/25. Two patient identifiers checked. Call light placed in reach. Side rails up x 2. Bed placed in lowest position. Brakes of bed on. -- 00:42 05/03/25 GINNY Farah R.N. 3 of 5 Nurse Narrative 02:05/03/25. KetorOLAC (Toradol) IVP 15 mg given via Site# 1. Allergies verified and confirmed 5 rights. IV patency established. IV site checked: no pain, redness, or swelling. IV flushed thoroughly pre-medication administration. Information reviewed with patient including reason for taking this medication. Verbalizes understanding. Medication Wastage: 15 mg wasted. -- 02:05/03/25 Jamison GallegosNApril 02:05/03/25. potassium chloride PO Liq 20mEq/15ml 40 mEq given. Allergies verified and confirmed 5 rights. Information reviewed with patient including reason for taking this medication. Verbalizes understanding. -- 02:09 05/03/25 EDT Luzma Farah R.N. 02:25 05/03/25. HYDROmorphone (Dilaudid) IVP 0.5 mg given via Site# 1. Allergies verified and confirmed 5 rights. IV patency established. IV site checked: no pain, redness, or swelling. IV flushed thoroughly pre-medication administration. Information reviewed with patient including reason for taking this medication. Verbalizes understanding. Medication Wastage: 0.5 mg wasted. -- 02:27 05/03/25 EDT Luzma Farah R.N. 02:53 05/03/25. CefTRIAXone (Rocephin) IVPB 2gm/50ml NS 2 g started at 100 mL/hr diluted in sodium chloride IVPB 0.9 % Minibag+ 50 mL via Site# 1. Allergies verified and confirmed 5 rights. Via dial-a-flow. IV patency established. IV site checked: no pain, redness, or swelling. IV flushed thoroughly pre-medication administration. Information reviewed with patient including reason for taking this medication. Verbalizes understanding. -- 02:54 05/03/25 EDT Luzma Farah R.N. 03:05/03/25. Transfer request (03:05/03/2025). Called for a possible transfer spoke with laura who stated she will call back facesheet faxed and images pushed over. ([facility] transfer line). -- 03:09 05/03/25 EDT Madelaine Colón 03:22 05/03/25. ( pt states she needs to go home and take care of her cat before she goes to [facility], states she wants to sign ama. AMA paperwork signed, witnessed by and this rn. IV removed.). -- 03:32 05/03/25 EDT Luzma Farah R.N. DISPOSITION / DISCHARGE 03:10 05/03/25. IV NS 0.9 %: Medication Discontinued. bag #1 completed upon discharge. Total amount infused: 1000 mL. IV patency established. IV site checked: no pain, redness, or swelling. IV flushed thoroughly post-medication administration. -- 03:35 05/03/25 EDT Luzma Farah R.N. 03:20 05/03/25. CefTRIAXone (Rocephin) IVPB 2gm/50ml NS: Medication Discontinued. IV completed. Total amount infused: 50 mL. IV patency established. IV site checked: no pain, redness, or swelling. IV flushed thoroughly post-medication administration. -- 03:35 05/03/25 EDT Luzma Farah R.N. 03:21 05/03/25. BP: 124/68 MAP: 87. HR: 76. RR: 18. O2 saturation: 98% Temperature: 98.2 F. Pain level now 310. -- 03:37 05/03/25 EDT Luzma Farah R.N. Departure time: 03:05/03/2025. Condition at departure: stable. The patient left the Emergency Department against medical advice; patient was accompanied by a parent. The patient appears to be alert, oriented x4, coherent and in no acute distress. The patient stated is leaving (needs to take care of cat before being transfered.). Notified the ED physician of patient departure. Prior to leaving, the patient was advised to stay for completion of treatment and return if needed. The patient was informed of the risks of leaving and verbalized 4 of 5 Nurse Narrative understanding of these risks. Patient signed form prior to leaving. The patient left the Emergency Department ambulatory and via private vehicle. ( given copy of chart and disk to give to vanessa.). -- 03:34 05/03/25 EDT Luzma Farah R.N. 03:31 05/03/25. Site #1 removed upon discharge. Catheter intact. Pressure dressing applied. -- 03:36 05/03/25 EDT Luzma Farah R.N. (Electronically signed by Luzma Farah R.N. 05/03/25 03:37:14 EDT) Generated by [facility] 5 of 5 ED SUPER BILL Observed: 05/02/2025 11:51 PM Status: C Source: [facility] [address] [place] [address]. [place] [address] [phone] 05/02/2025 Patient: TOR BERMAN Sex: Female : 1990 Age: 34y Item Facility Professional Category Description Code Code Quantity Fee Total Drugs Normal Saline 674405 1 $0.00 $0.00 1000cc (956090) Nurse/E/M EMERGENCY 650851 1 $0.00 $0.00 DEPARTMENT VISIT HIGH/URGENT SEVERITY (51997-84) Nurse/IV/IM/Infusions Drip/IVPB initial 928556 1 $0.00 $0.00 (01242) Nurse/IV/IM/Infusions Hydration 359280 2 $0.00 $0.00 additional hour (25663) Nurse/IV/IM/Infusions IVP additional 833190 3 $0.00 $0.00 push (05722) Nurse/IV/IM/Infusions IVP same med 995577 1 $0.00 $0.00 (31 min apart) (39763) Grand Total $0.00 1 of 2 Superbill Providers Gabby Meyers D.O. Chief Complaint ABDOMINAL PAIN and FLANK PAIN. Principal Diagnosis Acute urinary tract infection with pyelonephritis and hematuria associated with indwelling catheter. ICD-10 Codes N10: Acute pyelonephritis N12: Tubulo-interstitial nephritis, not specified as acute or chronic N39.0: Urinary tract infection, site not specified 2 of 2 ED VISIT SUMMARY Observed: 05/02/2025 11:51 PM Status: C Source: [facility] Visit Overview Visit Overview [address] [address] [id number] 05/02/2025 Patient: TOR BERMAN Sex: Female : 1990 Age: 34y 05/03/2025 03:37 AM EDT ED Arrival:23:51 05/02/2025 EDT Status: Recent Travel:no Language:eng Adv Directive: Isolation Status: Ethnicity:N Fall Risk:no risk Infectious Disease Exposure:no Measurements:5'4" / 162.6 Self-Harm Status:risk Sepsis Screen:negative cm 114.0 lb / 51.7 kg Chief Complaint:ABDOMINAL PAIN, (L flank pain, generalized abd pain, states was scheduled for nephrostomy replacement on april 13, missed it, has not had it replaced yet. ), and (Pace) ALLERGIES Haldol Penicillins HOME MEDICATIONS lexapro: 20 mg once a day . Lorazepam Intensol 2 mg/mL oral concentrate: 1 mg three times a day . 1 of 4 Visit Overview oxycodone 10 mg tablet: 10 mg every 6 hours . zofran: 4 mg every 6 hours . PAST MEDICAL HISTORY / PROBLEMS Anxiety disorder Cancer. (stage 3 cervicle. Currently in remission) Depression Renal Failure. (Left kidney only) See nurses notes PAST SURGICAL HISTORY nephrostomy tube SOCIAL HISTORY Nutritional assessment: No deficits Functional assessment: No impairments Learning needs: No barriers Smoking status: Yes Alcohol use: Yes Drug use: Yes ED COURSE MEDICATIONS GIVEN IN EMERGENCY DEPARTMENT 00:25 05/03/25 IV NS 0.9 % 1000 mL 999 mL/hr 00:27 05/03/25 Zofran IVP 4 mg 00:29 05/03/25 HYDROmorphone (Dilaudid) IVP 0.5 mg 02:06 05/03/25 KetorOLAC (Toradol) IVP 15 mg 02:07 05/03/25 potassium chloride PO Liq 20mEq/15ml 40 mEq 02:25 05/03/25 HYDROmorphone (Dilaudid) IVP 0.5 mg CefTRIAXone (Rocephin) IVPB 2gm/50ml NS 2 g diluted in sodium chloride IVPB 0.9 02:53 05/03/25 % Minibag+ 50 mL 100 mL/hr IV SITE INFORMATION INTAKE 2 of 4 Visit Overview OUTPUT REASSESMENT (most recent) 00:41 05/03/25. Ambulatory to room. ( ABD PAIN, flank pain, states almost a month late of nephrostomy change,). GENERAL / NEURO / PSYCH: Alert. Oriented X 4. Appears in no acute distress. RESPIRATORY: Respirations not labored. CVS: Normal sinus rhythm noted. GI / : The patient has had nausea. VITAL SIGNS First Vitals Last Vitals Temp 00:08 05/03/25 98.2 F Temp 03:05/03/25 98.2 F BP 00:08 05/03/25 114/83 BP 03:05/03/25 124/68 HR 00:08 05/03/25 90 HR 03:05/03/25 76 RR 00:08 05/03/25 18 RR 03:05/03/25 18 O2 Sat 00:08 05/03/25 98% O2 Sat 03:05/03/25 98% Pain 00:08 05/03/25 8 Pain 03:05/03/25 3 ETCO2 00:08 05/03/25 ETCO2 03:05/03/25 GCS 00:08 05/03/25 GCS 03:05/03/25 RTS 00:05/03/25 RTS 03:05/03/25 PROCEDURES NURSING INTERVENTIONS LABS / STUDIES LABS / STUDIES ORDERED CBC w Diff CMP CT ABD/PEL w Cont Lipase Urinalysis Urinalysis Urine Culture [CCL] Urine - HCG CLINICAL IMPRESSION 3 of 4 Visit Overview ACUTE URINARY TRACT INFECTION WITH PYELONEPHRITIS AND HEMATURIA ASSOCIATED WITH INDWELLING CATHETER 4 of 4 ED MED ADMINISTRATION DETAIL Observed: 0 05/02/2025 11:51 PM Status: C Source: [facility] Counter Top Maker Medication Administration Record [address] [place] [address] [id number] 05/02/2025 Patient: TOR BERMAN Sex: Female : 1990 Age: 34y MEASUREMENTS: Wt: 51.7 kg, Ht/Aden: 64.0 in, BMI: 19.57 ALLERGIES: Haldol, Penicillins Medication Ordered Medication Administration Date/Time Zofran IVP 4 mg 00:27 05/03 Zofran IVP 4 mg given via Site# 1. Allergies verified Given (NOW x1) and confirmed 5 rights. IV patency established. IV site checked: no 00:27 05/03/2025 pain, redness, or swelling. IV flushed thoroughly pre-medication Luzma Gagan, R.N. administration. Information reviewed with patient including reason Scanned for taking this medication. Verbalizes understanding. - 00:28 Luzma Gagan, R.N. IV NS 0.9 % 1000 00:25 05/03 IV NS 0.9 % 1000 mL started in bag#1 1000 mL at Started mL at 999 mL/hr 999 mL/hr via Site# 1. Allergies verified and confirmed 5 rights. IV 00:25 05/03/2025 (NOW x1) patency established. IV site checked: no pain, redness, or swelling. Luzma Farah R.N. IV flushed thoroughly pre-medication administration. Information Stopped reviewed with patient including reason for taking this medication. 03:10 05/03/2025 Verbalizes understanding. - 00:27 Jamison MelvinNJamison MatiasN. Scanned 03:05/03 Medication Discontinued: bag #1 completed upon discharge. Total amount infused: 1000 mL. IV patency established. IV site checked: no pain, redness, or swelling. IV flushed thoroughly post-medication administration. - 03:35 Tino Melvin.N. 1 of 3 Counter Top Maker Medication Ordered Medication Administration Date/Time HYDROmorphone 00:05/03 HYDROmorphone (Dilaudid) IVP 0.5 mg given via Given (Dilaudid) IVP 0.5 Site# 1. Allergies verified and confirmed 5 rights. IV patency 00:05/03/2025 mg (NOW x1, HIGH established. IV site checked: no pain, redness, or swelling. IV Luzma Farah R.N. ALERT flushed thoroughly pre-medication administration. Information Scanned MEDICATION) reviewed with patient including reason for taking this medication. Verbalizes understanding. Medication Wastage: 0.5 mg wasted. - 00:29 Luzma Farah RAprilN. potassium chloride 02:05/03 potassium chloride PO Liq 20mEq/15ml 40 mEq given. Given PO Liq 20mEq/15ml Allergies verified and confirmed 5 rights. Information reviewed with 02:05/03/2025 40 mEq (NOW x1) patient including reason for taking this medication. Verbalizes Luzma Farah R.N. understanding. - 02:09 Luzma Farah RAprilNApril Scanned KetorOLAC 02:05/03 KetorOLAC (Toradol) IVP 15 mg given via Site# 1. Given (Toradol) IVP 15 mg Allergies verified and confirmed 5 rights. IV patency established. IV 02:05/03/2025 (NOW x1) site checked: no pain, redness, or swelling. IV flushed thoroughly Luzma Farah R.N. pre-medication administration. Information reviewed with patient Scanned including reason for taking this medication. Verbalizes understanding. Medication Wastage: 15 mg wasted. - 02:06 Luzma Farah, R.N. HYDROmorphone 02:05/03 HYDROmorphone (Dilaudid) IVP 0.5 mg given via Given (Dilaudid) IVP 0.5 Site# 1. Allergies verified and confirmed 5 rights. IV patency 02:25 05/03/2025 mg (NOW x1, HIGH established. IV site checked: no pain, redness, or swelling. IV Luzma Gagan, R.N. ALERT flushed thoroughly pre-medication administration. Information Scanned MEDICATION) reviewed with patient including reason for taking this medication. Verbalizes understanding. Medication Wastage: 0.5 mg wasted. - 02:27 Luzmalizbeth Ellisp, R.N. 2 of 3 Counter Top Maker Medication Ordered Medication Administration Date/Time CefTRIAXone 02:53 05/03 CefTRIAXone (Rocephin) IVPB 2gm/50ml NS 2 g Started (Rocephin) IVPB started at 100 mL/hr diluted in sodium chloride IVPB 0.9 % 02:05/03/2025 2gm/50ml NS 2 g Minibag+ 50 mL via Site# 1. Allergies verified and confirmed 5 Luzma Gagan, R.N. diluted in sodium rights. Via dial-a-flow. IV patency established. IV site checked: no Stopped chloride IVPB 0.9 % pain, redness, or swelling. IV flushed thoroughly pre- medication 03:05/03/2025 Minibag+ 50 mL at administration. Information reviewed with patient including reason Luzmalizbeth Farah, R.N. 100 mL/hr (NOW x1) for taking this medication. Verbalizes understanding. - 02:54 Luzma Scanned Gagan, R.N. 03:20 05/03 Medication Discontinued: IV completed. Total amount infused: 50 mL. IV patency established. IV site checked: no pain, redness, or swelling. IV flushed thoroughly post-medication administration. - 03:35 Luzma Gagan, R.N. 3 of 3 ED SUPER BILL Observed: 04/29/2025 6:47 PM Status: F Source: [address] [place] [address] [id number] 04/29/2025 Patient: TOR BERMAN Sex: Female : 1990 Age: 34y Item Professional Category Description Facility Code Code Quantity Fee Total Grand Total $0.00 1 of 1 ED NURSES CLINICAL NOTE Observed: 2024 6:47 PM Status: F Source: [facility] Nurse Narrative Nurse Clinical Narrative [address] [address] [id number] 04/29/2025 18:47:00 Patient: TOR BERMAN Sex: Female : 1990 Age: 34y Disposition: Left W/O Being Seen Disposition Decision Time: 19:14 04/29/2025 Departure Time: 19:14 04/29/2025 TRIAGE Arrived by private vehicle. Historian: (patient). Patient has a primary care physician. Primary physician (pace). Triage time: 18:56 04/29/2025. Acuity: LEVEL 4. Chief Complaint: INJURY TO RIGHT HAND. The patient sustained a laceration. ( right ring finger lacerations from grabbing the blade of a knife while washing dishes. bleeding controlled.). SEPSIS SCREEN: NEGATIVE. SIRS criteria negative. No possible sources of infection. -- 19:00 04/29/25 EDT Cholo Dempsey R.N. 18:59 04/29/25. BP: 119/80 MAP: 93. HR: 78. RR: 16. O2 saturation: 99% Temperature: 99.2 F. Pain level now 0/10. -- 19:00 04/29/25 EDT Cholo Dempsey R.N. Measurements: 19:00 04/29/25 Wt: 52.2 kg, Ht/Aden: 64.0 in, BMI: 19.74 -- 19:00 04/29/25 EDT Cholo Dempsey R.N. Medications: zofran: 4 mg every 6 hours . -- 18:58 04/29/25 EDT Cholo Dempsey R.N. lexapro: 20 mg once a day . -- 18:58 04/29/25 EDT Cholo Dempsey R.N. 1 of 3 Nurse Narrative Lorazepam Intensol 2 mg/mL oral concentrate: 1 mg three times a day . -- 18:58 04/29/25 GINNY Dempsey R.N. oxycodone 10 mg tablet: 10 mg every 6 hours . -- 18:58 04/29/25 GINNY Dempsey R.N. Allergies: Penicillins -- 18:57 04/29/25 GINNY Dempsey R.N. Haldol -- 18:57 04/29/25 LILIANAT Cholo Dempsey R.N. Problems: Cancer. (stage 3 cervicle. Currently in remission) -- 18:57 04/29/25 GINNY Dempsey R.N. Renal Failure. (Left kidney only) -- 18:57 04/29/25 GINNY Dempsey R.N. Depression -- 18:57 04/29/25 GINNY Dempsey R.N. Anxiety disorder -- 18:57 04/29/25 GINNY Dempsey R.N. Surgeries: nephrostomy tube -- 18:57 04/29/25 GINNY Dempsey R.N. cervicle biopsy -- 18:57 04/29/25 GINNY Dempsey R.N. History 18:56 04/29/25. SOCIAL HX: Heavy tobacco smoker- less than 1 pack per day. Drug use. (marijuana daily). No alcohol use. The patient has not traveled outside the [place] Infectious disease exposure: No infectious disease exposure. ABUSE ASSESSMENT: Abuse denied. SELF HARM ASSESSMENT: Self harm assessment was performed. The patient answered no to the question(s) "Do you have thoughts of harming or killing yourself?" and "Do you have a plan for harming or killing yourself?". FALL RISK ASSESSMENT: Fall risk assessment completed. No risk factors identified. -- 19:00 04/29/25 GINNY Dempsey R.N. Interventions 2 of 3 Nurse Narrative 18:56 04/29/25. Advanced care plan discussed with patient. Patient does not have advanced directive. -- 19:00 04/29/25 GINNY Dempsey R.N. DISPOSITION / DISCHARGE Departure time: 19:14 04/29/2025. The patient left the Emergency Department without being seen by a physician. The patient appears to be alert, oriented x4, coherent and in no acute distress. The patient notified staff prior to leaving the department and stated is leaving due to the long waiting time. Notified the ED physician of patient departure. Prior to leaving, the patient was advised to stay for completion of treatment and return if needed. The patient was informed of the risks of leaving and verbalized understanding of these risks. Patient left without signing form prior to leaving. The patient left the Emergency Department ambulatory and via private vehicle. -- 19:14 04/29/25 EDT Cholo Dempsey R.N. 19:14 04/29/25. Condition at departure: unchanged. -- 19:14 04/29/25 EDT Cholo Dempsey R.N. (Electronically signed by Cholo Dempsey R.N. 04/30/25 07:47:18 EDT) Generated by [facility] 3 of 3 ED MED ADMINISTRATION DETAIL Observed: 0 04/29/2025 6:47 PM Status: F Source: [facility] Counter Top Maker Medication Administration Record [address] [address] [id number] 04/29/2025 Patient: TOR BERMAN Sex: Female : 1990 Age: 34y MEASUREMENTS: Wt: 52.2 kg, Ht/Aden: 64.0 in, BMI: 19.74 ALLERGIES: Haldol, Penicillins Medication Ordered Medication Administration Date/Time 1 of 1 ED VITALS FLOW SHEET Observed: 6:47 PM Status: F Source: [facility] Vitals Vital Sign Flow Sheet [address] [address] [id number] 04/29/2025 Patient: TOR BERMAN Sex: Female : 1990 Age: 34y Measurements Wt: 52.2 kg, Ht/Aden: 64.0 in, BMI: 19.74 Measured Time BP MAP HR RR O2Sat ETCO2 Temp Pain GCS RTS 18:59 04/29/2025 119/80 93 78 16 99% 99.2 F 0 1 of 1 ED VISIT SUMMARY Observed: 04/29/2025 6:47 PM Status: F Source: [facility] Visit Overview Visit Overview [address] [place] [address] [id number] 04/29/2025 Patient: TOR BERMAN Sex: Female : 1990 Age: 34y 04/30/2025 07:47 AM EDT ED Arrival:18:47 04/29/2025 EDT Status: Recent Travel:no Language:eng Adv Directive:No Isolation Status: Ethnicity:N Fall Risk:no risk Infectious Disease Exposure:no Measurements:5'4" / 162.6 Self-Harm Status:no risk Sepsis Screen:negative cm 115.0 lb / 52.2 kg Chief Complaint:INJURY TO RIGHT HAND, (pace), and (right ring finger lacerations from grabbing the blade of a knife while washing dishes. bleeding controlled. ) ALLERGIES Haldol Penicillins HOME MEDICATIONS lexapro: 20 mg once a day . Lorazepam Intensol 2 mg/mL oral concentrate: 1 mg three times a day . 1 3 Visit Overview oxycodone 10 mg tablet: 10 mg every 6 hours . zofran: 4 mg every 6 hours . PAST MEDICAL HISTORY / PROBLEMS Anxiety disorder Cancer. (stage 3 cervicle. Currently in remission) Depression Renal Failure. (Left kidney only) PAST SURGICAL HISTORY nephrostomy tube SOCIAL HISTORY Smoking status: Yes Alcohol use: No Drug use: Yes ED COURSE MEDICATIONS GIVEN IN EMERGENCY DEPARTMENT IV SITE INFORMATION INTAKE OUTPUT REASSESMENT (most recent) VITAL SIGNS First Vitals Last Vitals Temp 18:59 04/29/25 99.2 F Temp 18:59 04/29/25 99.2 F BP 18:59 04/29/25 119/80 BP 18:59 04/29/25 119/80 HR 18:59 04/29/25 78 HR 18:59 04/29/25 78 RR 18:59 04/29/25 16 RR 18:59 04/29/25 16 O2 Sat 18:59 04/29/25 99% O2 Sat 18:59 04/29/25 99% 2 of 3 Visit Overview First Vitals Last Vitals Pain 18:59 04/29/25 0 Pain 18:59 04/29/25 0 ETCO2 18:59 04/29/25 ETCO2 18:59 04/29/25 GCS 18:59 04/29/25 GCS 18:59 04/29/25 RTS 18:59 04/29/25 RTS 18:59 04/29/25 PROCEDURES NURSING INTERVENTIONS LABS / STUDIES CLINICAL IMPRESSION 3 of 3 ED ORDER SHEET (CPOE ONLY) Observed: 6:47 PM Status: F Source: [facility] Order Sheet Order Sheet [address] [place] [address] [id number] 04/29/2025 Patient: TOR BERMAN Sex: Female : 1990 Age: 34y MEASUREMENTS: Wt: 52.2 kg, Ht/Aden: 64.0 in, BMI: 19.74 ALLERGIES: Haldol, Penicillins MEDICATION/IV/DRIP/FLUID ORDERS Order Description Priority Entered Acknowledged Completed LAB ORDERS Order Description Priority Entered Acknowledged Collected Completed DIAGNOSTIC STUDY ORDERS Order Description Priority Entered Acknowledged Completed STAFF ORDERS Order Description Priority Entered Acknowledged Collected Completed 1 of CBC Collected: 2:33 AM Status: F Source: [facility] MA[facility] TYPE CODE TESTS RESULT OUT OF RANGE REFERENCE UNITS LAB WBC(LOINC) WBC 6.4 4.5-10.8 10 3/mcL LAB RBCCT(LOINC) RBC 3.99 Low 4.10-5.30 10 6/mcL LAB HGB(LOINC) Hgb 13.2 12.0-16.0 G/dL LAB HCT(LOINC) Hct 38.2 34.0-46.0 % LAB MCV(LOINC) MCV 95.8 80.0-99.0 fL LAB MCH(LOINC) MCH 33.2 High 27.0-33.0 pg LAB MCHC(LOINC) MCHC 34.6 32.0-36.0 G/dL LAB RDW(LOINC) RDW 15.2 11.5-15.5 % LAB PLT(LOINC) Platelet 335 150-450 10 3/mcL LAB MPV(LOINC) MPV 7.4 6.6-10.5 fL Performed By: #### CBC, ADIF F, ANEU, LAC, BMP, MG, GFR #### [place] [id number] .AUTO DIFF Collected: 04/07/2025 2:33 AM Status: F Source: [facility] MAIN TYPE CODE TESTS RESULT OUT OF RANGE REFERENCE UNITS LAB GREGORIA(LOINC) Neutrophil % 53.8 50.0-75.0 % LAB LYM(LOINC) Lymphocyte % 32.4 20.0-40.0 % LAB MON(LOINC) Monocyte % 8.9 2.0-13.0 % LAB EO(LOINC) Eosinophil % 3.8 0.0-6.0 % LAB BAS(LOINC) Basophil % 1.1 0.0-2.5 % LAB ABLYM(LOINC) Lymphocyte, Absolute 2.1 0.9-4.3 10 3/mcL LAB MIKEY(LOINC) Monocyte, Absolute 0.6 0.1-1.4 10 3/mcL LAB AEOS(LOINC) Eosinophil, Absolute 0.2 0.0-0.7 10 3/mcL LAB ABAS(LOINC) Basophil, Absolute 0.1 0.0-0.3 10 3/mcL Performed By: #### CBC, ADIF F, ANEU, LAC, BMP, MG, GFR #### [place] [address] .NEUABS Collected: 2:33 AM Status: F Source: [facility] MAIN TYPE CODE TESTS RESULT OUT OF RANGE REFERENCE UNITS LAB ANEU(LOINC) Neutrophil, Absolute 3.5 2.3-8.1 10 3/mcL Performed By: #### CBC, ADIF F, ANEU, LAC, BMP, MG, GFR #### [place] [address] LAC Collected: 04/07/2025 2:33 AM Status: F Source: [facility] MAIN TYPE CODE TESTS RESULT OUT OF RANGE REFERENCE UNITS LAB LAC(LOINC) Lactic Acid Lvl 0.5 0.5-2.2 mmol/L Performed By: #### CBC, ADIF F, ANEU, LAC, BMP, MG, GFR #### [address] [address] BMP Collected: 04/07/2025 2:33 AM Status: F Source: [facility] MAIN TYPE CODE TESTS RESULT OUT OF RANGE REFERENCE UNITS LAB GLU(LOINC) Glucose Level 101 70-110 mg/dL LAB NA(LOINC) Sodium Level 143 136-145 mEq/L LAB K(LOINC) Potassium Level 3.6 3.5-5.0 mEq/L LAB CL(LOINC) Chloride 110 98-110 mEq/L LAB CO2(LOINC) CO2 27 22-32 mEq/L LAB EBAL(LOINC) Electrolyte Balance 6.0 4.0-15.0 mEq/L LAB BUN(LOINC) BUN 9.0 8.0-22.0 mg/dL LAB CRE(LOINC) Creatinine Lvl (s) 0.88 0.50-1.20 mg/dL Result Comment: Testing perf ormed on [employer] Mobile analyzer using enzymatic creatinine methodology. LAB BC(LOINC) BUN/Creatinine Ratio 10.2 10.0-22.0 ratio LAB CA(LOINC) Calcium Lvl 9.4 8.7-10.4 mg/dL Performed By: #### CBC, ADIF F, ANEU, LAC, BMP, MG, GFR #### [address] [address] MG Collected: 04/07/2025 2:33 AM Status: F Source: [facility] MAIN TYPE CODE TESTS RESULT OUT OF RANGE REFERENCE UNITS LAB MG(LOINC) Magnesium Lvl 2.1 1.6-2.4 mg/dL Performed By: #### CBC, ADIF F, ANEU, LAC, BMP, MG, GFR #### [address] [address] .GFR Collected: 04/07/2025 2:33 AM Status: F Source: [facility] MAIN TYPE CODE TESTS RESULT OUT OF RANGE REFERENCE UNITS LAB eGFR(LOINC) Estimated Glomerular Filtration Rate 87 ml/min/1. 73sqm Result Comment: Stages of Chronic Kidney Disease [...] calculate the eGFR results. Performed By: #### CBC, ADIF F, ANEU, LAC, BMP, MG, GFR #### [place] [id number] [address] [place] [address] RENAL Observed: 04/06/2025 4:18 PM Status: F Source: [facility] MAIN ORIGINAL EXAMINATION: ULTRASOUND OF THE KIDNEYS 04/06/2025 [...] tube. Mild left pelvicaliectasis. Interpreted by: Scooby Roman Preliminary Report By: Scooby Roman Electronically signed By Scooby Roman Dictated Date: 04/06/2025 4:55:15 PM Prelim Date: 04/06/2025 4:58:12 PM Sign Date: 04/06/2025 4:58:12 PM Ordering Provider: DAO IVAN XR ABDOMEN AP Observed: 04/06/2025 3:39 PM Status: F Source: [facility] MAIN ORIGINAL EXAMINATION: ONE SUPINE XRAY VIEW(S) OF [...] the resident's findings and interpretation. Interpreted by: Kong Adamson Preliminary Report By: Douglas Salgado MD Electronically signed By Kong Adamson Dictated Date: 04/06/2025 3:49:57 PM Prelim Date: 04/06/2025 4:01:45 PM Sign Date: 04/06/2025 4:01:45 PM Ordering Provider: DAO IVAN CBC Collected: 3:11 PM Status: F Source: [facility] MAIN TYPE CODE TESTS RESULT OUT OF RANGE REFERENCE UNITS LAB WBC(LOINC) WBC 9.9 4.5-10.8 10 3/mcL LAB RBCCT(LOINC) RBC 4.22 4.10-5.30 10 6/mcL LAB HGB(LOINC) Hgb 13.7 12.0-16.0 G/dL LAB HCT(LOINC) Hct 40.7 34.0-46.0 % LAB MCV(LOINC) MCV 96.3 80.0-99.0 fL LAB MCH(LOINC) MCH 32.5 27.0-33.0 pg LAB MCHC(LOINC) MCHC 33.8 32.0-36.0 G/dL LAB RDW(LOINC) RDW 15.2 11.5-15.5 % LAB PLT(LOINC) Platelet 329 150-450 10 3/mcL LAB MPV(LOINC) MPV 7.5 6.6-10.5 fL Performed By: #### CBC, ADIF F, ANEU, MDW, BMP, GFR #### [place] [address] .AUTO DIFF Collected: 04/06/2025 3:11 PM Status: F Source: [facility] MAIN TYPE CODE TESTS RESULT OUT OF RANGE REFERENCE UNITS LAB GREGORIA(LOINC) Neutrophil % 68.8 50.0-75.0 % LAB LYM(LOINC) Lymphocyte % 20.5 20.0-40.0 % LAB MON(LOINC) Monocyte % 7.9 2.0-13.0 % LAB EO(LOINC) Eosinophil % 1.5 0.0-6.0 % LAB BAS(LOINC) Basophil % 1.3 0.0-2.5 % LAB ABLYM(LOINC) Lymphocyte, Absolute 2.0 0.9-4.3 10 3/mcL LAB MIKEY(LOINC) Monocyte, Absolute 0.8 0.1-1.4 10 3/mcL LAB AEOS(LOINC) Eosinophil, Absolute 0.1 0.0-0.7 10 3/mcL LAB ABAS(LOINC) Basophil, Absolute 0.1 0.0-0.3 10 3/mcL Performed By: #### CBC, ADIF F, ANEU, MDW, BMP, GFR #### [place] [id number] .NEUABS Collected: 3:11 PM Status: F Source: [facility] MAIN TYPE CODE TESTS RESULT OUT OF RANGE REFERENCE UNITS LAB ANEU(LOINC) Neutrophil, Absolute 6.8 2.3-8.1 10 3/mcL Performed By: #### CBC, ADIF F, ANEU, MDW, BMP, GFR #### [place] [id number] .MDW Collected: 04/06/2025 3:11 PM Status: F Source: [facility] MAIN TYPE CODE TESTS RESULT OUT OF RANGE REFERENCE UNITS LAB MDW(LOINC) Monocyte Distribution Width 21.04 High 0.00-20.00 Result Comment: For adults i n ED, MDW>20.0 may be associated with a higher risk of sepsis during the first 12hrs of hospital admission Performed By: #### CBC, ADIF F, ANEU, MDW, BMP, GFR #### [place] [address] BMP Collected: 04/06/2025 3:11 PM Status: F Source: [facility] MAIN TYPE CODE TESTS RESULT OUT OF RANGE REFERENCE UNITS LAB GLU(LOINC) Glucose Level 84 70-110 mg/dL LAB NA(LOINC) Sodium Level 140 136-145 mEq/L LAB K(LOINC) Potassium Level 4.4 3.5-5.0 mEq/L LAB CL(LOINC) Chloride 108 98-110 mEq/L LAB CO2(LOINC) CO2 28 22-32 mEq/L LAB EBAL(LOINC) Electrolyte Balance 4.0 4.0-15.0 mEq/L LAB BUN(LOINC) BUN 10.0 8.0-22.0 mg/dL LAB CRE(LOINC) Creatinine Lvl (s) 0.95 0.50-1.20 mg/dL Result Comment: Testing perf ormed on [employer] Mobile analyzer using enzymatic creatinine methodology. LAB BC(LOINC) BUN/Creatinine Ratio 10.5 10.0-22.0 ratio LAB CA(LOINC) Calcium Lvl 9.6 8.7-10.4 mg/dL Performed By: #### CBC, ADIF F, ANEU, YOUNG, BMP, GFR #### [address] [address] .GFR Collected: 04/06/2025 3:11 PM Status: F Source: [facility] MAIN TYPE CODE TESTS RESULT OUT OF RANGE REFERENCE UNITS LAB eGFR(LOINC) Estimated Glomerular Filtration Rate 80 ml/min/1. 73sqm Result Comment: Stages of Chronic Kidney Disease [...] calculate the eGFR results. Performed By: #### CBC, ADIF F, ANEU, YOUNG, BMP, GFR #### [address] [address] UA Collected: 04/06/2025 3:08 PM Status: F Source: [facility] MAIN TYPE CODE TESTS RESULT OUT OF RANGE REFERENCE UNITS LAB SPCUA(LOINC) UA Specimen Type Clean Catch LAB CLRUA(LOINC) UA Color Yellow LAB APPUA(LOINC) UA Appear Clear Clear LAB SGUA(LOINC) UA Spec Grav <=1.005 Abnormal 1.006-1.029 LAB GLUA(LOINC) UA Glucose Negative Negative mg/dL LAB BILUA(LOINC) UA Bili Negative Neg-Trace LAB KETUA(LOINC) UA Ketones Negative Neg-Trace mg/dL LAB BLDUA(LOINC) UA Blood Negative Neg-Trace LAB PHUA(LOINC) UA pH 6.5 5.0 - 8.0 LAB PROUA(LOINC) UA Protein Negative Negative mg/dL LAB UROUA(LOINC) UA Urobilinogen 0.2 0.2-1.0 E.U ./dL LAB NITUA(LOINC) UA Nitrite Negative Negative LAB LEUUA(LOINC) UA Leuk Est Negative Negative Performed By: #### UA #### [address] [address] CBC Collected: 6:25 AM Status: F Source: [facility] Order Comment: Routine for 0 501 the morning of patient admission. TYPE CODE TESTS RESULT OUT OF RANGE REFERENCE UNITS LAB WBC(LOINC) WBC 7.0 4.5-10.8 10 3/mcL LAB RBCCT(LOINC) RBC 3.87 Low 4.10-5.30 10 6/mcL LAB HGB(LOINC) Hgb 12.7 12.0-16.0 G/dL LAB HCT(LOINC) Hct 37.4 34.0-46.0 % LAB MCV(LOINC) MCV 96.7 80.0-99.0 fL LAB MCH(LOINC) MCH 32.9 27.0-33.0 pg LAB MCHC(LOINC) MCHC 34.0 32.0-36.0 G/dL LAB RDW(LOINC) RDW 15.6 High 11.5-15.5 % LAB PLT(LOINC) Platelet 369 150-450 10 3/mcL LAB MPV(LOINC) MPV 7.7 6.6-10.5 fL Performed By: #### CBC, ADIF F, ANEU, BMP, GFR #### [address] [address] .AUTO DIFF Collected: 04/05/2025 6:25 AM Status: F Source: [facility] TYPE CODE TESTS RESULT OUT OF RANGE REFERENCE UNITS LAB GREGORIA(LOINC) Neutrophil % 53.2 50.0-75.0 % LAB LYM(LOINC) Lymphocyte % 31.9 20.0-40.0 % LAB MON(LOINC) Monocyte % 9.8 2.0-13.0 % LAB EO(LOINC) Eosinophil % 3.7 0.0-6.0 % LAB BAS(LOINC) Basophil % 1.4 0.0-2.5 % LAB ABLYM(LOINC) Lymphocyte, Absolute 2.2 0.9-4.3 10 3/mcL LAB MIKEY(LOINC) Monocyte, Absolute 0.7 0.1-1.4 10 3/mcL LAB AEOS(LOINC) Eosinophil, Absolute 0.3 0.0-0.7 10 3/mcL LAB ABAS(LOINC) Basophil, Absolute 0.1 0.0-0.3 10 3/mcL Performed By: #### CBC, ADIF F, ANEU, BMP, GFR #### [place] [id number] .NEUABS Collected: 6:25 AM Status: F Source: [facility] TYPE CODE TESTS RESULT OUT OF RANGE REFERENCE UNITS LAB ANEU(LOINC) Neutrophil, Absolute 3.7 2.3-8.1 10 3/mcL Performed By: #### CBC, ADIF F, ANEU, BMP, GFR #### [address] [address] BMP Collected: 04/05/2025 6:25 AM Status: F Source: [facility] Order Comment: Routine for 0 501 the morning of patient admission. TYPE CODE TESTS RESULT OUT OF RANGE REFERENCE UNITS LAB GLU(LOINC) Glucose Level 84 70-110 mg/dL LAB NA(LOINC) Sodium Level 141 136-145 mEq/L LAB K(LOINC) Potassium Level 4.2 3.5-5.0 mEq/L Result Comment: Specimen sli ghtly hemolyzed. LAB CL(LOINC) Chloride 110 98-110 mEq/L LAB CO2(LOINC) CO2 26 22-32 mEq/L LAB EBAL(LOINC) Electrolyte Balance 5.0 4.0-15.0 mEq/L LAB BUN(LOINC) BUN 10.0 8.0-22.0 mg/dL LAB CRE(LOINC) Creatinine Lvl (s) 0.81 0.50-1.20 mg/dL Result Comment: Testing perf ormed on [employer] Mobile analyzer using enzymatic creatinine methodology. LAB BC(LOINC) BUN/Creatinine Ratio 12.3 10.0-22.0 ratio LAB CA(LOINC) Calcium Lvl 8.9 8.7-10.4 mg/dL Performed By: #### CBC, ADIF F, ANEU, BMP, GFR #### [address] [address] .GFR Collected: 04/05/2025 6:25 AM Status: F Source: [facility] TYPE CODE TESTS RESULT OUT OF RANGE REFERENCE UNITS LAB eGFR(LOINC) Estimated Glomerular Filtration Rate 96 ml/min/1. 73sqm Result Comment: Stages of Chronic Kidney Disease [...] calculate the eGFR results. Performed By: #### CBC, ADIF F, ANEU, BMP, GFR #### [address] [address] CUR Observed: 04/04/2025 3:53 PM Status: F Source: [facility] . MICRO - Microbiology PROCEDURE: Urine Culture [...] This test was performed at: [facility], [address] [place] [address], [phone] , [place] CT ABDOMEN/PELVIS W/O CONTRAST Observed: 04/04/2025 3:36 PM Status: F Source: [facility] ORIGINAL EXAMINATION: CT OF THE ABDOMEN AND [...] by: Clotilde Sethi MD Preliminary Report By: Douglas Salgado MD Electronically signed By Clotilde Sethi MD Dictated Date: 04/04/2025 3:54:29 PM Prelim Date: 04/04/2025 4:10:13 PM Sign Date: 04/04/2025 4:10:13 PM Ordering Provider: ROD ARRIETA Collected: 04/04/2025 2:55 PM Status: F Source: [facility] TYPE CODE TESTS RESULT OUT OF RANGE REFERENCE UNITS LAB SPCUA(LOINC) UA Specimen Type Clean Catch LAB CLRUA(LOINC) UA Color Yellow LAB APPUA(LOINC) UA Appear Clear Clear LAB SGUA(LOINC) UA Spec Grav 1.015 1.006-1.029 LAB GLUA(LOINC) UA Glucose Negative Negative mg/dL LAB BILUA(LOINC) UA Bili Negative Neg-Trace LAB KETUA(LOINC) UA Ketones Negative Neg-Trace mg/dL LAB BLDUA(LOINC) UA Blood Negative Neg-Trace LAB PHUA(LOINC) UA pH 6.5 5.0 - 8.0 LAB PROUA(LOINC) UA Protein Negative Negative mg/dL LAB UROUA(LOINC) UA Urobilinogen 0.2 0.2-1.0 E.U ./dL LAB NITUA(LOINC) UA Nitrite Negative Negative LAB LEUUA(LOINC) UA Leuk Est Trace Negative Performed By: #### UA #### [place] [address] CBC Collected: 2:55 PM Status: F Source: [facility] TYPE CODE TESTS RESULT OUT OF RANGE REFERENCE UNITS LAB WBC(LOINC) WBC 11.5 High 4.5-10.8 10 3/mcL LAB RBCCT(LOINC) RBC 4.70 4.10-5.30 10 6/mcL LAB HGB(LOINC) Hgb 15.1 12.0-16.0 G/dL LAB HCT(LOINC) Hct 45.3 34.0-46.0 % LAB MCV(LOINC) MCV 96.4 80.0-99.0 fL LAB MCH(LOINC) MCH 32.1 27.0-33.0 pg LAB MCHC(LOINC) MCHC 33.3 32.0-36.0 G/dL LAB RDW(LOINC) RDW 15.6 High 11.5-15.5 % LAB PLT(LOINC) Platelet 381 150-450 10 3/mcL LAB MPV(LOINC) MPV 7.8 6.6-10.5 fL Performed By: #### CBC, ADIF F, ANEU, MDW, BMP, GFR #### [address] [address] .AUTO DIFF Collected: 04/04/2025 2:55 PM Status: F Source: [facility] TYPE CODE TESTS RESULT OUT OF RANGE REFERENCE UNITS LAB GREGORIA(LOINC) Neutrophil % 67.6 50.0-75.0 % LAB LYM(LOINC) Lymphocyte % 20.4 20.0-40.0 % LAB MON(LOINC) Monocyte % 9.3 2.0-13.0 % LAB EO(LOINC) Eosinophil % 1.3 0.0-6.0 % LAB BAS(LOINC) Basophil % 1.4 0.0-2.5 % LAB ABLYM(LOINC) Lymphocyte, Absolute 2.3 0.9-4.3 10 3/mcL LAB MIKEY(LOINC) Monocyte, Absolute 1.1 0.1-1.4 10 3/mcL LAB AEOS(LOINC) Eosinophil, Absolute 0.2 0.0-0.7 10 3/mcL LAB ABAS(LOINC) Basophil, Absolute 0.2 0.0-0.3 10 3/mcL Performed By: #### CBC, ADIF F, ANEU, MDW, BMP, GFR #### [place] [address] .NEUABS Collected: 2:55 PM Status: F Source: [facility] TYPE CODE TESTS RESULT OUT OF RANGE REFERENCE UNITS LAB ANEU(LOINC) Neutrophil, Absolute 7.8 2.3-8.1 10 3/mcL Performed By: #### CBC, ADIF F, ANEU, MDW, BMP, GFR #### [place] [address] .MDW Collected: 04/04/2025 2:55 PM Status: F Source: [facility] TYPE CODE TESTS RESULT OUT OF RANGE REFERENCE UNITS LAB MDW(LOINC) Monocyte Distribution Width 18.36 0.00-20.00 Result Comment: For ED adult patients suspected of sepsis, MDW<=20.0 does not rule out sepsis or risk of sepsis Performed By: #### CBC, ADIF F, ANEU, MDW, BMP, GFR #### [place] [address] BMP Collected: 04/04/2025 2:55 PM Status: F Source: [facility] TYPE CODE TESTS RESULT OUT OF RANGE REFERENCE UNITS LAB GLU(LOINC) Glucose Level 78 70-110 mg/dL LAB NA(LOINC) Sodium Level 141 136-145 mEq/L LAB K(LOINC) Potassium Level 3.8 3.5-5.0 mEq/L LAB CL(LOINC) Chloride 108 98-110 mEq/L LAB CO2(LOINC) CO2 27 22-32 mEq/L LAB EBAL(LOINC) Electrolyte Balance 6.0 4.0-15.0 mEq/L LAB BUN(LOINC) BUN 12.0 8.0-22.0 mg/dL LAB CRE(LOINC) Creatinine Lvl (s) 0.84 0.50-1.20 mg/dL Result Comment: Testing perf ormed on [employer] Mobile analyzer using enzymatic creatinine methodology. LAB BC(LOINC) BUN/Creatinine Ratio 14.3 10.0-22.0 ratio LAB CA(LOINC) Calcium Lvl 10.2 8.7-10.4 mg/dL Performed By: #### CBC, ADIF F, GURMEET, MDW, BMP, GFR #### [address] [address] .GFR Collected: 04/04/2025 2:55 PM Status: F Source: [facility] TYPE CODE TESTS RESULT OUT OF RANGE REFERENCE UNITS LAB eGFR(LOINC) Estimated Glomerular Filtration Rate 92 ml/min/1. 73sqm Result Comment: Stages of Chronic Kidney Disease [...] calculate the eGFR results. Performed By: #### CBC, ADIF F, ANEU, MDW, BMP, GFR #### [address] [address] UA Collected: 2:55 PM Status: F Source: [facility] Order Comment: To be taken f rom nephrostomy TYPE CODE TESTS RESULT OUT OF RANGE REFERENCE UNITS LAB SPCUA(LOINC) UA Specimen Type Not Given LAB CLRUA(LOINC) UA Color Yellow LAB APPUA(LOINC) UA Appear Cloudy Abnormal Clear LAB SGUA(LOINC) UA Spec Grav 1.010 1.006-1.029 LAB GLUA(LOINC) UA Glucose Negative Negative mg/dL LAB BILUA(LOINC) UA Bili Negative Neg-Trace LAB KETUA(LOINC) UA Ketones Negative Neg-Trace mg/dL LAB BLDUA(LOINC) UA Blood Moderate Abnormal Neg-Trace LAB PHUA(LOINC) UA pH >=8.5 Abnormal 5.0 - 8.0 LAB PROUA(LOINC) UA Protein 100 Abnormal Negative mg/dL LAB UROUA(LOINC) UA Urobilinogen 0.2 0.2-1.0 E.U ./dL LAB NITUA(LOINC) UA Nitrite Negative Negative LAB LEUUA(INC) UA Leuk Est Large Abnormal Negative Performed By: #### UA, UAMIC #### [place] [address] UAMIC Collected: 04/04/2025 2:55 PM Status: F Source: [facility] TYPE CODE TESTS RESULT OUT OF RANGE REFERENCE UNITS LAB RBCUA(LOINC) UA RBC 10-20 Abnormal 0-2 /hpf LAB WBCUA(LOINC) UA WBC 10-20 Abnormal 0-5 /hpf LAB EPIUA(LOINC) UA Squam Epithelial 3-5 0-20 /hpf LAB BACUA(LOINC) UA Bacteria 2+ Abnormal Negative /hpf LAB TPCR(LOINC) UA Trip Rai Crystals 3+ /hpf Performed By: #### UA, UAMIC #### [place] [address] CT ABDOMEN/PELVIS WO Observed: 10:40 PM Status: F Source: [place] [id number] Patient: TOR BERMAN Phone#: : [phone] Age: 34 Gender: F Pt. Type: ER Account: [id number] Location: 052 Ordering: CHRISTO SPENCERRNYIK Exam Date: 04/03/202511:38 Family Phys: Charge Code: [id number] Physician: [place] Order #: [id number] Dose#: [id number] PROCEDURE: CT ABDOMEN/PELVIS WITHOUT CONTRAST COMPARISON: [facility], CT, ABDOMEN/PELVIS W/O CON, 02/10/2025, 2:00. INDICATIONS: Abdominal pain. TECHNIQUE: CT images were created without intravenous contrast. All CT scans at this facility use dose modulation, iterative reconstruction, and/or weight based dosing when appropriate to reduce radiation dose to as low as reasonably achievable. IV CONTRAST: No IV contrast used,0ml TOTAL DOSE: 4.80 CTDIvol(mGy) FINDINGS: LIVER: Normal. No enlargement, atrophy, abnormal density, or significant focal lesion. BILIARY: Normal. No visible dilatation or calcification. PANCREAS: Normal. No lesion, fluid collection, ductal dilatation, or atrophy. SPLEEN: Normal. No enlargement or focal lesion. KIDNEYS: The right kidney is unremarkable. There is fullness of left ureter. Punctate calculi present in the distal ureter. Nephrostomy tube is present. ADRENALS: Normal. No mass or enlargement. AORTA/VASCULAR: Normal. No aneurysm. RETROPERITONEUM: Normal. No mass or adenopathy. BOWEL/MESENTERY: Normal. No visible mass, obstruction, or bowel wall thickening. ABDOMINAL WALL: Normal. No mass or hernia. URINARY BLADDER: Normal. No visible focal wall thickening, lesion, or calculus. PELVIC NODES: Normal. No adenopathy. PELVIC ORGANS: Normal. No visible mass. Pelvic organs appropriate for patient age. BONES: Normal. No bony lesion or fracture. LUNG BASES: Normal. No visible pulmonary or pleural disease. OTHER: Negative. CONCLUSION: 1. Percutaneous left nephrostomy tube is present. Continued Report - Page 2 of 2 Patient: TOR BERMAN Phone#: : [phone] Age: 34 Gender: F Pt. Type: ER Account: [id number] Location: 052 Ordering: CHRISTO CSERNYIK Exam Date: 04/03/2025/11:38 Family Phys: Charge Code: [id number] Physician: Ingham Order #: [id number] Dose#: [id number] 2. Punctate calculi in the pelvis may be in the distal left ureter. Dictated by: Cynthia Douglas MD on 04/03/2025 at 22:33 Approved by: Cynthia Douglas MD on 04/03/2025 at 22:39 URINALYSIS Collected: 12:25 PM Status: F Source: [facility] TYPE CODE TESTS RESULT OUT OF RANGE REFERENCE UNITS LAB URINALYSIS(LOIN C) URINALYSIS Result Comment: URINALYSIS LAB Specimen Type(LOINC) Specimen Type R LAB Color(LOINC) Color yellow NORMAL: YELLOW LAB Clarity(LOINC) Clarity clear NORMAL: CLEAR LAB ph(LOINC) ph 7 NORMAL: 5.0-8.0 LAB Protein(LOINC) Protein NEG RAJIV L: NEGATIVE LAB Glucose(LOINC) Glucose NORM RAJIV L: NORMAL LAB Ketone(LOINC) Ketone NEG NORMAL : NEGATIVE LAB Bilirubin(LOINC ) Bilirubin NEG NORMAL: NEGATIVE LAB Blood(LOINC) Blood NEG NORMAL: NEGATIVE LAB Urobilinog(LOIN C) Urobilinog NORM NORMAL: NORMAL LAB Sp Stem(LOINC) Sp Stem 1.010 NORMAL: 1.010-1.030 LAB Nitrite(LOINC) Nitrite NEG RAJIV L: NEGATIVE LAB Leukocytes(LOIN C) Leukocytes NEG NORMAL: NEGATIVE LAB Microscopic(ISAIAH NC) Microscopic NOT INDICATED Performed By: #### [id number] ## ## [place] [id number] LIPASE Collected: 12:00 PM Status: F Source: [facility] TYPE CODE TESTS RESULT OUT OF RANGE REFERENCE UNITS LAB LIPASE(LOINC) LIPASE 36.0 15.0 - 78.0 U/L Result Comment: *PLEASE NOTE THAT RANGES FOR LIPASE HAVE CHANGED OF 10/31/23 DUE TO AN ASSAY UPDATE BY THE ELECTRONICS ENGINEERING TECHNOLOGIST.THE NEW ASSAY RANGE IS 6-250 U/L, WITH A REFERENCE RANGE OF 16-77 U/L. Performed By: #### [id number] ## ## [place] [id number] CBC + DIFF Collected: 12:00 PM Status: F Source: [facility] TYPE CODE TESTS RESULT OUT OF RANGE REFERENCE UNITS LAB CBC + DIFF(LOINC) CBC + DIFF Result Comment: CBC-COMPLETE BLOOD COUNT LAB WBC(LOINC) WBC 10.2 4.5 - 10.8 x 10EE3/UL LAB RBC(LOINC) RBC 4.13 4.10 - 5.30 x 10EE6/UL LAB HEMOGLOBIN(ISAIAH NC) HEMOGLOBIN 13.7 12.0 - 16.0 g/dl LAB HEMATOCRIT(ISAIAH NC) HEMATOCRIT 39.2 34.0 - 46.0 % LAB MCV(LOINC) MCV 95 80 - 99 fl LAB MCH(LOINC) MCH 33 27 - 33 pg LAB MCHC(LOINC) MCHC 35 32 - 36 X10 3 LAB RDW/CV(LOINC) RDW/CV 13.9 12.0 - 15.6 % LAB PLATELET(LOINC ) PLATELET 361 150 - 450 x10EE3/UL LAB MPV(LOINC) MPV 7.1 6.6 - 10.5 fl Result Comment: AUTOMATED DI FFERENTIAL LAB NEUT %(LOINC) NEUT % 64.6 46.0 - 76.0 % LAB LYMPH %(LOINC) LYMPH % 24.6 20.0 - 45.0 % LAB MONOS %(LOINC) MONOS % 8.9 0.0 - 10.0 % LAB EO %(LOINC) EO % 1.6 0.0 - 7.0 % LAB BASO %(LOINC) BASO % 0.4 0.0 - 2.0 % LAB Lymph #(LOINC) Lymph # 2.51 0.80 - 2.80 x10EE 3/UL LAB Neut #(LOINC) Neut # 6.59 1.50 - 7.10 x10EE3 /UL LAB Green #(LOINC) Green # 0.91 0.20 - 1.00 x10EE3 /UL LAB EO #(LOINC) EO # 0.16 0.00 - 0.50 x10EE3/U L LAB Baso #(LOINC) Baso # 0.04 0.00 - 0.10 x10EE3 /UL LAB MANUAL DIFF(LOINC) MANUAL DIFF N/A LAB MORPHOLOGY(ISAIAH NC) MORPHOLOGY N/A Performed By: #### [id number] ## ## [facility],[address] [place] [address] CMP WITH EGFR Collected: 12:00 PM Status: F Source: [facility] TYPE CODE TESTS RESULT OUT OF RANGE REFERENCE UNITS LAB CMP with eGFR(LOINC) CMP with eGFR Result Comment: COMPREHENSIV E METABOLIC PANEL LAB SODIUM(LOINC) SODIUM 137 136 - 145 mmol/l LAB POTASSIUM(LOIN C) POTASSIUM 4.0 3.5 - 5.1 mmol/L LAB CHLORIDE(LOINC ) CHLORIDE 103 98 - 107 mmol/L LAB CO2(LOINC) CO2 25.0 21.0 - 32.0 mmol/L LAB GLUCOSE(LOINC) GLUCOSE 78 74 - 106 mg/dl LAB BUN(LOINC) BUN 13 7 - 18 mg/dl LAB CREATININE(ISAIAH NC) CREATININE 0.95 0.55 - 1.02 mg/dl LAB AST/SGOT(LOINC ) AST/SGOT 18 13 - 39 U/L LAB ALK PHOS(LOINC) ALK PHOS 85 46 - 116 U/L LAB CALCIUM(LOINC) CALCIUM 9.2 8.5 - 10.1 mg/dl LAB TOTAL PROTEIN(LOINC) TOTAL PROTEIN 7.3 6.4 - 8.2 g/dl LAB ALBUMIN(LOINC) ALBUMIN 3.8 3.4 - 5.0 g/dL LAB GLOBULIN(LOINC ) GLOBULIN 3.5 1.5 - 3.8 G/DL LAB A/G RATIO(LOINC) A/G RATIO 1.1 0.9 - 1.6 LAB TOTAL BILI(LOINC) TOTAL BILI 0.4 0.2 - 1.0 mg/dl LAB B/C RATIO(LOINC) B/C RATIO 14 0 - 30 ratio LAB ALT/SGPT(LOINC ) ALT/SGPT 14 Low 16 - 63 U/L LAB ANION GAP(LOINC) ANION GAP 13 10 - 20 mmol/L LAB AGE(LOINC) AGE 34 years LAB eGFR(LOINC) eGFR >60 60 - 999 ML/MINUT E LAB eGFR(AA)(LOINC ) eGFR(AA) >60 60 - 999 ML/MINUT E Result Comment: ACCORDING TO THE NATIONAL KIDNEY DISEASE EDUCATION PROGRAM(NKDE), A NORMAL eGFR IS A VALUE GREATER THAN OR EQUAL TO 60 ML/MIN/1.73 SQ METERS. CHRONIC KIDNEY DISEASE: <60mL/MIN/1.73 SQ METERS KIDNEY FAILURE: <15mL/MIN/1.73 SQ METERS THIS TEST SHOULD ONLY BE USED FOR PATIENTS 18 YEARS OF AGE AND OLDER. Performed By: #### [id number] ## ## [address] [id number] LACTATE Collected: 12:00 PM Status: F Source: [facility] TYPE CODE TESTS RESULT OUT OF RANGE REFERENCE UNITS LAB LACTATE(LOINC) LACTATE 0.7 0.4 - 2.0 mmol/L Performed By: #### [id number] ## ## [address] [address] ED MED ADMINISTRATION DETAIL Observed: 0 04/03/2025 10:56 AM Status: F Source: [facility] Counter Top Maker Medication Administration Record [address] [place] [id number] 04/03/2025 Patient: TOR BERMAN Sex: Female : 1990 Age: 34y MEASUREMENTS: Wt: 52.2 kg, Ht/Aden: 60.0 in, BMI: 22.46 ALLERGIES: Haldol, Penicillins Medication Ordered Medication Administration Date/Time IV NS 0.9 % 1000 12:17 04/03 IV NS 0.9 % 1000 mL started in bag#1 1000 mL at Started mL at 999 mL/hr 999 mL/hr via Site# 1. Allergies verified and confirmed 5 rights. IV 12:17 04/03/2025 (NOW x1) patency established. IV site checked: no pain, redness, or swelling. Sandra Gramajo R.N. IV flushed thoroughly pre-medication administration. Information Stopped reviewed. Verbalizes understanding. - 12:18 Sandra Gramajo R.N. 14:00 04/03/2025 Sandra Gramajo R.N. 14:00 04/03 Medication Discontinued: bag #1. Total amount Scanned infused: 500 mL. IV patency established. IV site checked: no pain, redness, or swelling. IV flushed thoroughly post-medication administration. - 17:53 Sandra Gramajo R.N. Zofran IVP 4 mg 12:19 04/03 Zofran IVP 4 mg given via Site# 1. Allergies verified Given (NOW x1) and confirmed 5 rights. IV patency established. IV site checked: no 12:19 04/03/2025 pain, redness, or swelling. IV flushed thoroughly pre-medication Sandra Gramajo R.N. administration. Information reviewed. Verbalizes understanding. - Scanned 12:19 Sandra Gramajo R.N. HYDROmorphone 12:18 04/03 HYDROmorphone (Dilaudid) IVP 0.5 mg given via Given (Dilaudid) IVP 0.5 Site# 1. Allergies verified and confirmed 5 rights. IV patency 12:18 04/03/2025 mg (NOW x1, HIGH established. IV site checked: no pain, redness, or swelling. IV Sandra Gramajo R.N. ALERT flushed thoroughly pre-medication administration. Information Scanned MEDICATION) reviewed. Verbalizes understanding. Medication Wastage: 0.5 mg wasted. - 12:18 Sandra Gramajo R.N. 1 of 2 Counter Top Maker Medication Ordered Medication Administration Date/Time Pantoprazole 12:04/03 Pantoprazole (Protonix) IVP 40 mg given via Site# 1. Given (Protonix) IVP 40 Allergies verified and confirmed 5 rights. IV patency established. IV 12:04/03/2025 mg (NOW x1) site checked: no pain, redness, or swelling. IV flushed thoroughly Sandra Gramajo R.N. pre-medication administration. Information reviewed. Verbalizes Scanned understanding. - 12:19 Sandra Gramajo R.N. Zofran IVP 4 mg 13:43 04/03 Zofran IVP 4 mg given via Site# 1. Allergies verified Given (NOW x1) and confirmed 5 rights. IV patency established. IV site checked: no 13:43 04/03/2025 pain, redness, or swelling. IV flushed thoroughly pre-medication Pranav Landin administration. IVP given by EMT-P. Information reviewed with Alcira. patient. Verbalizes understanding. Vitals: 11:11 04/03/2025 BP: Scanned 132/95 MAP: 107. HR: 76. RR: 14. O2 saturation: 99% Temperature: 97.8 F. Pain level now 06/12. - 13:44 Pranav Landin E.M.T.-P. 2 of 2 ED PHYSICIAN CLINICAL REPORT Observed: 0 04/03/2025 10:56 AM Status: F Source: [facility] Narrative Physician Clinical Narrative [facility] [address] [place] [phone] 04/03/2025 10:56:00 Patient: TOR BERMAN Sex: Female : 1990 Age: 34y Disposition: Discharge to Home Disposition Decision Time: 13:22 04/03/2025 Departure Time: 14:03 04/03/2025 Measurements Wt: 52.2 kg, Ht/Aden: 60.0 in, BMI: 22.46 Initial Vital Sign Measured Time BP MAP HR RR O2Sat ETCO2 Temp Pain GCS RTS 11:11 04/03/2025 132/95 107 76 14 99% 97.8 F 8 Time Seen: 11:19 04/03/2025. Arrived- By private vehicle. Historian- patient. HISTORY OF PRESENT ILLNESS Chief Complaint: ABDOMINAL PAIN and FLANK PAIN. It is described as "pain", sharp, cramping and burning. No radiation. This started last night states she tugged her left nephrostomy tube getting into/out of the car. The patient has had nausea and vomiting. No loss of appetite or diarrhea. No additional abdominal pain. No recent travel. Similar symptoms previously. REVIEW OF SYSTEMS 1 of 12 Narrative GI: No constipation, black stools or hematemesis. : No difficulty with urination, pain with urination or urinary frequency. NEUROLOGICAL: No headache. THROAT: No sore throat. CVS: No chest pain. RESPIRATORY: No difficulty breathing. CONSTITUTIONAL: No fever or chills. PAST HISTORY See nurses notes. cervical cancer, kidney failure (left nephrostomy tube). Anxiety disorder Cancer: (stage 3 cervicle. Currently in remission) Depression Renal Failure: (Left kidney only) Surgeries: cervicle biopsy nephrostomy tube Medications: Bactrim 400 mg-80 mg tablet: twice a day . lexapro: 20 mg once a day . Lorazepam Intensol 2 mg/mL oral concentrate: 1 mg three times a day . oxycodone 10 mg tablet: 10 mg every 6 hours . zofran: 4 mg every 6 hours . Allergies: Haldol Penicillins SOCIAL HISTORY Smoker- current status unknown (vaping). Occasional drug use: marijuana. Recently used drugs today. No alcohol use. No recent travel. FAMILY HISTORY Negative. ADDITIONAL NOTES 2 of 12 Narrative The nursing notes have been reviewed with agreement regarding the chief complaint, PMH and patient medications and allergies. PHYSICAL EXAM Vital Signs: Have been reviewed. Appearance: Alert. Oriented X3. No acute distress. Eyes: Pupils equal, round and reactive to light. Eyes normal inspection. ENT: Ears normal. Nose normal. Pharynx normal. Neck: Normal inspection. Neck supple. CVS: Normal heart rate and rhythm. Heart sounds normal. Respiratory: No respiratory distress. Painless inspiration. Breath sounds normal. Chest nontender. Abdomen: Soft and nontender. Bowel sounds normal. No organomegaly. No mass. Femoral pulses equal. No rebound tenderness, distention, mass present or guarding. The bowel sounds are not abnormal. (no drainage/erythema around left nephrostomy tube. Neph tube draining clear yellow urine.). Back: Normal inspection. No CVA tenderness. Skin: No rash. Extremities: Extremities exhibit normal ROM. No lower extremity edema. Neuro: Oriented X 3. LABS, X-RAYS, AND EKG Note - Tests: (CT confirms per cutaneous left nephrostomy tube. Calcification left lateral pelvis may be distal ureter in origin versus vascular. No significant obstructive uropathy seen. No bowel obstruction free air significant free fluid. Appendix not identified.). Laboratory Tests: CBC + DIFF Final BINA: 04/03/2025 12:00:00 EDT MsgRcvd: 04/03/2025 12:45 EDT Lab Test Result Reference Status Received Comments 04/03/2025 12:45 CBC-COMPLETE CBC + DIFF Final EDT BLOOD COUNT 04/03/2025 12:45 WBC 10.2 x 10/UL 4.5 - 10.8 Final EDT 3 of 12 Narrative Lab Test Result Reference Status Received Comments 04/03/2025 12:45 RBC 4.13 x 10/UL 4.10 - 5.30 Final EDT 04/03/2025 12:45 HEMOGLOBIN 13.7 g/dl 12.0 - 16.0 Final EDT 04/03/2025 12:45 HEMATOCRIT 39.2 % 34.0 - 46.0 Final EDT 04/03/2025 12:45 MCV 95 fl 80 - 99 Final EDT 04/03/2025 12:45 MCH 33 pg 27 - 33 Final EDT 04/03/2025 12:45 MCHC 35 X10 3 32 - 36 Final EDT 04/03/2025 12:45 RDW/CV 13.9 % 12.0 - 15.6 Final EDT 04/03/2025 12:45 PLATELET 361 x10/UL 150 - 450 Final EDT 04/03/2025 12:45 AUTOMATED MPV 7.1 fl 6.6 - 10.5 Final EDT DIFFERENTIAL 04/03/2025 12:45 NEUT % 64.6 % 46.0 - 76.0 Final EDT 04/03/2025 12:45 LYMPH % 24.6 % 20.0 - 45.0 Final EDT 04/03/2025 12:45 MONOS % 8.9 % 0.0 - 10.0 Final EDT 04/03/2025 12:45 EO % 1.6 % 0.0 - 7.0 Final EDT 4 of 12 Narrative Lab Test Result Reference Status Received Comments 04/03/2025 12:45 BASO % 0.4 % 0.0 - 2.0 Final EDT 04/03/2025 12:45 Lymph # 2.51 x10/UL 0.80 - 2.80 Final EDT 04/03/2025 12:45 Neut # 6.59 x10/UL 1.50 - 7.10 Final EDT 04/03/2025 12:45 Green # 0.91 x10/UL 0.20 - 1.00 Final EDT 04/03/2025 12:45 EO # 0.16 x10/UL 0.00 - 0.50 Final EDT 04/03/2025 12:45 Baso # 0.04 x10/UL 0.00 - 0.10 Final EDT 04/03/2025 12:45 MANUAL DIFF N/A New Order EDT 04/03/2025 12:45 MORPHOLOGY N/A New Order EDT LACTATE Final BINA: 04/03/2025 12:00:00 EDT MsgRcvd: 04/03/2025 13:01 EDT Lab Test Result Reference Status Received Comments 04/03/2025 13:01 LACTATE 0.7 mmol/L 0.4 - 2.0 Final EDT LIPASE Final BINA: 04/03/2025 12:00:00 EDT MsgRcvd: 04/03/2025 12:57 EDT Lab Test Result Reference Status Received Comments 5 of 12 Narrative Lab Test Result Reference Status Received Comments *PLEASE NOTE THAT RANGES FOR LIPASE HAVE CHANGED OF 10/31/23 DUE TO AN ASSAY 04/03/2025 LIPASE 36.0 U/L 15.0 - 78.0 Final UPDATE BY THE 12:57 EDT ELECTRONICS ENGINEERING TECHNOLOGIST.THE NEW ASSAY RANGE IS 6-250 U/L, WITH A REFERENCE RANGE OF 16-77 U/L. URINALYSIS Final BINA: 04/03/2025 12:25:00 EDT MsgRcvd: 04/03/2025 13:01 EDT Lab Test Result Reference Status Received Comments 04/03/2025 13:01 URINALYSIS Final URINALYSIS EDT 04/03/2025 13:01 Specimen Type R New Order EDT NORMAL: 04/03/2025 13:01 Color yellow Final YELLOW EDT NORMAL: 04/03/2025 13:01 Clarity clear Final CLEAR EDT NORMAL: 04/03/2025 13:01 ph 7 Final 5.0-8.0 EDT NORMAL: 04/03/2025 13:01 Protein NEG Final NEGATIVE EDT 6 of 12 Narrative Lab Test Result Reference Status Received Comments NORMAL: 04/03/2025 13:01 Glucose NORM Final NORMAL EDT NORMAL: 04/03/2025 13:01 Ketone NEG Final NEGATIVE EDT NORMAL: 04/03/2025 13:01 Bilirubin NEG Final NEGATIVE EDT NORMAL: 04/03/2025 13:01 Blood NEG Final NEGATIVE EDT NORMAL: 04/03/2025 13:01 Urobilinog NORM Final NORMAL EDT NORMAL: 04/03/2025 13:01 Sp Stem 1.010 Final 1.010-1.030 EDT NORMAL: 04/03/2025 13:01 Nitrite NEG Final NEGATIVE EDT NORMAL: 04/03/2025 13:01 Leukocytes NEG Final NEGATIVE EDT 04/03/2025 13:01 Microscopic NOT INDICATED Final EDT CMP with eGFR Final BINA: 04/03/2025 12:00:00 EDT MsgRcvd: 04/03/2025 13:05 EDT Lab Test Result Reference Status Received Comments COMPREHENSIVE 04/03/2025 CMP with eGFR Final METABOLIC 13:05 EDT PANEL 04/03/2025 SODIUM 137 mmol/l 136 - 145 Final 13:05 EDT 7 Narrative Lab Test Result Reference Status Received Comments 04/03/2025 POTASSIUM 4.0 mmol/L 3.5 - 5.1 Final 13:05 EDT 04/03/2025 CHLORIDE 103 mmol/L 98 - 107 Final 13:05 EDT 04/03/2025 CO2 25.0 mmol/L 21.0 - 32.0 Final 13:05 EDT 04/03/2025 GLUCOSE 78 mg/dl 74 - 106 Final 13:05 EDT 04/03/2025 BUN 13 mg/dl 7 - 18 Final 13:05 EDT 04/03/2025 CREATININE 0.95 mg/dl 0.55 - 1.02 Final 13:05 EDT 04/03/2025 AST/SGOT 18 U/L 13 - 39 Final 13:05 EDT 04/03/2025 ALK PHOS 85 U/L 46 - 116 Final 13:05 EDT 04/03/2025 CALCIUM 9.2 mg/dl 8.5 - 10.1 Final 13:05 EDT TOTAL 04/03/2025 7.3 g/dl 6.4 - 8.2 Final PROTEIN 13:05 EDT 04/03/2025 ALBUMIN 3.8 g/dL 3.4 - 5.0 Final 13:05 EDT 04/03/2025 GLOBULIN 3.5 G/DL 1.5 - 3.8 Final 13:05 EDT 04/03/2025 A/G RATIO 1.1 0.9 - 1.6 Final 13:05 EDT 8 Narrative Lab Test Result Reference Status Received Comments 04/03/2025 TOTAL BILI 0.4 mg/dl 0.2 - 1.0 Final 13:05 EDT 04/03/2025 B/C RATIO 14 ratio 0 - 30 Final 13:05 EDT 14 U/L 04/03/2025 ALT/SGPT 16 - 63 Final Below low normal 13:05 EDT 04/03/2025 ANION GAP 13 mmol/L 10 - 20 Final 13:05 EDT 04/03/2025 AGE 34 years Final 13:05 EDT 04/03/2025 eGFR >60 ML/MINUTE 60 - 999 Final 13:05 EDT 9 of 12 Narrative Lab Test Result Reference Status Received Comments ACCORDING TO THE NATIONAL KIDNEY DISEASE EDUCATION PROGRAM(NKDE), A NORMAL eGFR IS A VALUE GREATER THAN OR EQUAL TO 60 ML/MIN/1.73 SQ METERS. 04/03/2025 CHRONIC KIDNEY eGFR(AA) >60 ML/MINUTE 60 - 999 Final 13:05 EDT DISEASE: <60mL/MIN/1.73 SQ METERS KIDNEY FAILURE: <15mL/MIN/1.73 SQ METERS THIS TEST SHOULD ONLY BE USED FOR PATIENTS 18 YEARS OF AGE AND OLDER. PROGRESS AND PROCEDURES MEDICAL DECISION MAKING: MEDICAL COMPLEXITY MODERATE. Pertinent clinical findings include the acute presentation and the character and location of the pain. The exam revealed no vital signs that were significantly abnormal, unequal pulses, rebound tenderness, mass, McBurney's point tenderness or positive Da Silva's sign. A serious condition is a possible cause for the patient's findings. The differential diagnosis includes, but is not limited to, appendicitis, perforated viscous, bowel obstruction, diverticulitis, ulcerative colitis, Crohn's disease, gallstones, cholecystitis, gastroesophageal reflux disease, gastritis and peptic ulcer disease. The diagnosis appears to be non-critical in nature. Ordered tests include CT scans, complete blood count, 10 of 12 Narrative chemistries, liver function tests and urinalysis. The patient has been stable and has improved. IV fluids and narcotics have been given have been given. The pain and vomiting got better. The patient is to be discharged with follow-up. (patient frequently here for nausea vomiting diarrhea and chronic recurrent abdominal pain/flank pain. Patient has history of cervical cancer. She has history of nephrostomy tube in the left the gets changed every weeks. She has had no fever chills. She was seen here about 24-36 hours ago for nausea vomiting diarrhea. She says he was doing better said she caught her nephrostomy tube on the care door (tugging on it). Now has left flank pain. she tried taking her oxycodone but had an episode of nausea and vomiting. He says she has severe pain. Patient is awake and alert and in no acute clinical distress. Abdomen is palpably soft. She complains of some generalized tenderness. Nephrostomy tube looks to be in good position. Draining clear yellow urine. No erythema or drainage around the tube. Lab work is reassuring. CT imaging of the abdomen pelvis is grossly negative. Percutaneous left nephrostomy tube in place. Calcification left lateral pelvis may be distal ureter of origin versus vascular. No obstructive uropathy seen. No bowel obstruction free air significant free fluid. Appendix not identified. patient is resting more comfortably now. No further nausea and vomiting. The patient was reassured. The patient be discharged home to continue her regular medications and care. Follow up with her regular physicians as needed.). Disposition: Condition: good and stable. Disposition Decision Time: 13:22 04/03/2025. Patient discharged to Home. Discharged in good condition. Discharge decision based on the following: patient's condition is stable; patient's condition is improved; patient's exam is stable; no seriously abnormal test results; stable condition on repeat evaluation; social support is excellent; transportation is available; follow-up is available; clinical impression is consistent with outpatient treatment. CLINICAL IMPRESSION Chronic generalized abdominal pain of undetermined cause, now resolved. Vomiting with nausea, dehydration and volume depletion. Not intractable or bilious. (Left nephrostomy tube in place). DISCHARGE INSTRUCTIONS Take Tylenol (Acetaminophen) or Motrin (Ibuprofen) as needed for fever control. Take medication according to label instructions. Drink plenty of fluids. No dietary restrictions. (push clear fluids. Slowly advance diet as tolerated. Take your current medications as directed. Please follow of 12 Narrative up with her primary care /nephrology/pain management. Refrain from cannabinoid /marijuana as this may exacerbate nausea). Follow-up: Follow up with your doctor in two days even if well. Call for an appointment. Reason for referral: evaluation and treatment. Summary of care provided to patient. Understanding of the discharge instructions verbalized by patient. (Electronically signed by Christo Arias D.O. 04/03/25 14:05:27 EDT) Generated by [facility] ED SUPER BILL Observed: 04/03/2025 10:56 AM Status: F Source: [facility] [address] [place] [address] [phone] 04/03/2025 Patient: TOR BERMAN Sex: Female : 1990 Age: 34y Facility Professional Category Item Description Code Code Quantity Fee Total Drugs Normal Saline 660207 1 $0.00 $0.00 1000cc (772742) Nurse/E/M EMERGENCY 766301 1 $0.00 $0.00 DEPT VISIT HIGH SEVERITYFUNCJ (28290-11) Nurse/IV/IM/Infusions Hydration 651310 2 $0.00 $0.00 additional hour (96078) Nurse/IV/IM/Infusions IVP additional 481428 2 $0.00 $0.00 push (65851) Nurse/IV/IM/Infusions IVP initial (77644) 324821 1 $0.00 $0.00 Nurse/IV/IM/Infusions IVP same med 534608 1 $0.00 $0.00 (31 min apart) (69866) Grand $0.00 Total Providers 1 of 2 [facility] Christo Arias D.O. Chief Complaint ABDOMINAL PAIN and FLANK PAIN. Principal Diagnosis Chronic generalized abdominal pain of undetermined cause, now resolved. Vomiting with nausea, dehydration and volume depletion. Not intractable or bilious. (Left nephrostomy tube in place). ICD-10 Codes R10.84: Generalized abdominal pain R11.2: Nausea with vomiting, unspecified R11.10: Vomiting, unspecified 2 of 2 ED VITALS FLOW SHEET Observed: 10:56 AM Status: F Source: [facility] Vitals Vital Sign Flow Sheet [address] [address] [id number] 04/03/2025 Patient: TOR BERMAN Sex: Female : 1990 Age: 34y Measurements Wt: 52.2 kg, Ht/Aden: 60.0 in, BMI: 22.46 Measured Time BP MAP HR RR O2Sat ETCO2 Temp Pain GCS RTS 11:11 04/03/2025 132/95 107 76 14 99% 97.8 F 8 1 of 1 ED ORDER SHEET (CPOE ONLY) Observed: 11/2024 10:56 AM Status: F Source: [facility] Order Sheet Order Sheet [address] [address] [id number] 04/03/2025 Patient: TOR BERMAN Sex: Female : 1990 Age: 34y MEASUREMENTS: Wt: 52.2 kg, Ht/Aden: 60.0 in, BMI: 22.46 ALLERGIES: Haldol, Penicillins MEDICATION/IV/DRIP/FLUID ORDERS Order Description Priority Entered Acknowledged Completed IV NS 0.9 %1000 mL at 999 11:23 04/03/2025 11:36 12:18 mL/hr (NOW x1) Petra BlockOApril 04/03/2025 04/03/2025 Sandra Eason, JamisonNApril R.N. Zofran IVP4 mg (NOW x1) 11:23 04/03/2025 11:36 12:19 Petra BlockO. 04/03/2025 04/03/2025 Sandra Eason R.N. R.N. HYDROmorphone (Dilaudid) 11:29 04/03/2025 11:36 12:18 IVP0.5 mg (NOW x1, HIGH Petra BlockOApril 04/03/2025 04/03/2025 ALERT MEDICATION) Sandra Eason R.N. R.N. Reason for ordering with alerts: Benefits outweigh risks --11:29 04/03/2025 Christo Airas D.O. Pantoprazole (Protonix) IVP40 11:30 04/03/2025 11:36 12:19 mg (NOW x1) Petra BlockOApril 04/03/2025 04/03/2025 Sandra Eason R.NApril R.NApril 1 of 3 Order Sheet Zofran IVP4 mg (NOW x1) 13:25 04/03/2025 13:44 Christo Arias D.O. 04/03/2025 Pranav Landin E.M.T.-P. Reason for ordering with alerts: Benefits outweigh risks --13:25 04/03/2025 Christo Arias D.O. LAB ORDERS Order Description Priority Entered Acknowledged Collected Completed CBC w Diff Stat Stat 11:23 04/03/2025 11:36 04/03/2025 12:03 04/03/2025 Sandra Block R.N. Tessa Miller, R.N. D.O. CMP Stat Stat 11:23 04/03/2025 11:36 04/03/2025 12:03 04/03/2025 Sandra Block R.N. Tessa Miller, R.N. D.O. Lipase Stat Stat 11:23 04/03/2025 11:36 04/03/2025 12:03 04/03/2025 Sandra Block R.N. Tessa Miller, R.N. D.OApril Lactate, Serum Stat Stat 11:23 04/03/2025 11:36 04/03/2025 12:03 04/03/2025 Sandra Block R.N. Tessa Miller, R.N. D.OApril Urinalysis Stat Stat 11:23 04/03/2025 11:36 04/03/2025 12:37 04/03/2025 Sandar Block R.N. Tessa Miller, R.N. D.OApril DIAGNOSTIC STUDY ORDERS Order Description Priority Entered Acknowledged Completed CT ABD/PEL wo Cont Stat Stat 11:32 04/03/2025 11:36 12:37 2 of 3 Order Sheet Christo Arias D.O. 04/03/2025 04/03/2025 Sandra Eason R.N. R.NApril Order Comments: 11:32 04/03/2025: (c/o pain from nephrostomy tube) Christo Arias D.O. Reason for Study: Abdominal Pain STAFF ORDERS Order Description Priority Entered Acknowledged Collected Completed IV Saline Lock 11:23 04/03/2025 11:36 04/03/2025 12:03 04/03/2025 Sandra Block R.N. Tessa Miller, R.N. D.OApril [Electronically signed by Christo Arias D.O. (04/03/2025 14:05 EDT)] 3 of 3 ED NURSES CLINICAL NOTE Observed: 2024 10:56 AM Status: F Source: [facility] Nurse Narrative Nurse Clinical Narrative [facility] [address] [place] [address] [phone] 04/03/2025 10:56:00 Patient: TOR BERMAN Sex: Female : 1990 Age: 34y Disposition: Discharge to Home Disposition Decision Time: 13:22 04/03/2025 Departure Time: 14:03 04/03/2025 TRIAGE Arrived by private vehicle. Historian: (patient). Triage time: 10:54 04/03/2025. Acuity: LEVEL 3. Chief Complaint: NAUSEA, VOMITING and DIARRHEA (Patient states she was in the ED here for nausea and vomiting on Friday. Patient states she continues to have nausea and vomiting and is unable to keep her pain medication down and has pain in her abdomen and left flank. Patient also states she caught her nephrostomy tube in the car door and noted blood in the output. Denies bleeding from the site.). SEPSIS SCREEN: NEGATIVE. SIRS criteria negative. No possible sources of infection. -- 11:04/03/25 EDT Rossy Bojorquez R.N. 11:04/03/25. BP: 132/95 MAP: 107. HR: 76. RR: 14. O2 saturation: 99% Temperature: 97.8 F. Pain level now 8/10. -- 11:04/03/25 EDT Rossy Bojorquez R.N. Measurements: 11:04/03/25 Wt: 52.2 kg, Ht/Aden: 60.0 in, BMI: 22.46 -- 11:04/03/25 EDT Rossy Bojorquez R.N. Medications: zofran: 4 mg every 6 hours . -- :04/03/25 EDT Rossy Bojorquez R.N. lexapro: 20 mg once a day . -- :04/03/25 EDT Rossy Kerstetter, R.N. 1 of 4 Nurse Narrative Lorazepam Intensol 2 mg/mL oral concentrate: 1 mg three times a day . -- 11:04/03/25 EDT Rossy Bojorquez R.N. oxycodone 10 mg tablet: 10 mg every 6 hours . -- 11:04/03/25 EDT Rossy Bojorquez R.N. Bactrim 400 mg-80 mg tablet: twice a day . -- 11:04/03/25 EDT Rossy Bojorquez R.N. 10:54 04/03/25. Preferred Pharmacy: ([facility]). -- 11:04/03/25 EDT Rossy Bojorquez R.N. Allergies: Penicillins -- 11:04/03/25 EDT Rossy Bojorquez R.N. Haldol -- 11:04/03/25 EDT Rossy Bojorquez R.N. Problems: Cancer. (stage 3 cervicle. Currently in remission) -- 11:04/03/25 EDT Rossy Bojorquez R.N. Renal Failure. (Left kidney only) -- 11:04/03/25 EDT Rossy Bojorquez R.N. Depression -- 11:04/03/25 EDT Rossy Bojorquez R.N. Anxiety disorder -- 11:04/03/25 EDT Rossy Bojorquez R.N. Surgeries: nephrostomy tube -- 11:04/03/25 EDT Rossy Bojorquez R.N. cervicle biopsy -- 11:04/03/25 EDT Rossy Bojorquez R.N. History 10:54 04/03/25. PAST MEDICAL HX: Denies current . SOCIAL HX: Current every day smoker. Drug use: marijuana. No alcohol use. The patient has not traveled outside the [place] Infectious disease exposure: No infectious disease exposure. ABUSE ASSESSMENT: The patient answered "yes" to the question(s) "Do you feel safe in your home?" and "no" to the question(s) "Are you afraid to go home?". No report of abuse. SELF HARM ASSESSMENT: Self harm assessment was performed. The patient answered no to the question(s) "Have you recently felt down, depressed, or hopeless?" and "Do you have thoughts of harming or 2 of 4 Nurse Narrative killing yourself?". FALL RISK ASSESSMENT: Fall risk assessment completed. No risk factors identified. -- 11:11 04/03/25 EDT Rossy Bojorquez R.N. Interventions 10:54 04/03/25. Identification band and allergy band on patient. Advanced care plan discussed with patient. Patient does not have advanced directive. -- 11:11 04/03/25 EDT Rossy Bojorquez R.N. PHYSICAL ASSESSMENT 11:21 04/03/25. Ambulatory to room. GENERAL / NEURO / PSYCH: Alert. Oriented X 4. Appears in pain. HEENT: Pupils equal, round and reactive to light. No facial asymmetry noted. Mucous membranes are pink. RESPIRATORY: Respirations not labored. GI / : Abdomen soft and normal bowel sounds. Abdominal tenderness. SKIN: Skin intact. Skin is warm and dry. Normal skin turgor. -- 11:46 04/03/25 EDT Sandra Gramajo R.N. NURSING PROGRESS NOTES 11:37 04/03/25. Patient walked to CT with body technician. -- 11:37 04/03/25 LILIANAT Sandra Gramajo R.N. 12:04/03/25. IV NS 0.9 % 1000 mL started in bag#1 1000 mL at 999 mL/hr via Site# 1. Allergies verified and confirmed 5 rights. IV patency established. IV site checked: no pain, redness, or swelling. IV flushed thoroughly pre-medication administration. Information reviewed. Verbalizes understanding. -- 12:18 04/03/25 LILIANAT Sandra Gramajo R.N. 12:17 04/03/25. Site #1 started via IV in the right antecubital space with a 20g angiocath; 1 attempt. Blood drawn: rainbow set and arriola tube(s). Saline lock flushed with 5 mL saline. -- 12:18 04/03/25 GINNY Gramajo R.N. 12:18 04/03/25. HYDROmorphone (Dilaudid) IVP 0.5 mg given via Site# 1. Allergies verified and confirmed 5 rights. IV patency established. IV site checked: no pain, redness, or swelling. IV flushed thoroughly pre-medication administration. Information reviewed. Verbalizes understanding. Medication Wastage: 0.5 mg wasted. -- 12:18 04/03/25 EDT Sandra Gramajo R.N. 12:04/03/25. Zofran IVP 4 mg given via Site# 1. Allergies verified and confirmed 5 rights. IV patency established. IV site checked: no pain, redness, or swelling. IV flushed thoroughly pre-medication administration. Information reviewed. Verbalizes understanding. -- 12:04/03/25 LILIANAT Sandra Gramajo R.N. 12:04/03/25. Pantoprazole (Protonix) IVP 40 mg given via Site# 1. Allergies verified and confirmed 5 rights. IV patency established. IV site checked: no pain, redness, or swelling. IV flushed thoroughly pre-medication administration. Information reviewed. Verbalizes understanding. -- 12:04/03/25 EDT Sandra Gramajo R.N. 3 of 4 Nurse Narrative 13:43 04/03/25. Zofran IVP 4 mg given via Site# 1. Allergies verified and confirmed 5 rights. IV patency established. IV site checked: no pain, redness, or swelling. IV flushed thoroughly pre-medication administration. IVP given by EMT-P. Information reviewed with patient. Verbalizes understanding. Vitals: 11:11 04/03/2025 BP: 132/95 MAP: 107. HR: 76. RR: 14. O2 saturation: 99% Temperature: 97.8 F. Pain level now 06/12. -- 13:44 04/03/25 EDT Pranav Landin E.M.T.-P. DISPOSITION / DISCHARGE 14:00 04/03/25. IV NS 0.9 %: Medication Discontinued. bag #1. Total amount infused: 500 mL. IV patency established. IV site checked: no pain, redness, or swelling. IV flushed thoroughly post-medication administration. -- 17:53 04/03/25 EDT Sandra Gramajo R.N. 14:00 04/03/25. Site #1 removed upon discharge. -- 17:54 06/1/25 EDT Sandra Gramajo R.N. Departure time: 14:03 04/03/2025. -- 14:03 04/03/25 EDT Sandra Gramajo R.N. 14:05 04/03/25. Condition at departure: stable. No learning barriers present. Patient verbalized understanding. Written instructions provided in Palestinian. The patient was discharged home and accompanied by hot dip galvanizer. The patient left ambulatory and via private vehicle. 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 -- 17:55 04/03/25 EDT Sandra Gramajo R.N. (Electronically signed by Sandra Gramajo R.N. 04/03/25 17:55:44 EDT) Generated by [facility] 4 of 4 ED VISIT SUMMARY Observed: 04/03/2025 10:56 AM Status: F Source: [facility] Visit Overview Visit Overview [address] [place] [address] [phone] 04/03/2025 Patient: TOR BERMAN Sex: Female : 1990 Age: 34y 04/03/2025 05:55 PM EDT ED Arrival:10:56 04/03/2025 EDT Status:not Recent Travel:no Language:eng Adv Directive:No Isolation Status: Ethnicity:N Fall Risk:no risk Infectious Disease Exposure:no Measurements:5' / 152.4 Self-Harm Status:risk Sepsis Screen:negative cm 115.0 lb / 52.2 kg Chief Complaint:DIARRHEA, NAUSEA, VOMITING, and (Patient states she was in the ED here for nausea and vomiting on Friday. Patient states she continues to have nausea and vomiting and is unable to keep her pain medication down and has pain in her abdomen and left flank. Patient also states she caught her nephrostomy tube in the car door and noted blood in the output. Denies bleeding from the site.) ALLERGIES 1 of 4 Visit Overview Haldol Penicillins HOME MEDICATIONS Bactrim 400 mg-80 mg tablet: twice a day . lexapro: 20 mg once a day . Lorazepam Intensol 2 mg/mL oral concentrate: 1 mg three times a day . oxycodone 10 mg tablet: 10 mg every 6 hours . zofran: 4 mg every 6 hours . PAST MEDICAL HISTORY / PROBLEMS Anxiety disorder Cancer. (stage 3 cervicle. Currently in remission) Depression Renal Failure. (Left kidney only) See nurses notes PAST SURGICAL HISTORY nephrostomy tube SOCIAL HISTORY Smoking status: Yes Alcohol use: No Drug use: Yes ED COURSE MEDICATIONS GIVEN IN EMERGENCY DEPARTMENT 12:17 04/03/25 IV NS 0.9 % 1000 mL 999 mL/hr 12:18 04/03/25 HYDROmorphone (Dilaudid) IVP 0.5 mg 12:19 04/03/25 Zofran IVP 4 mg 12:19 04/03/25 Pantoprazole (Protonix) IVP 40 mg 13:43 04/03/25 Zofran IVP 4 mg IV SITE INFORMATION Visit Overview INTAKE OUTPUT REASSESMENT (most recent) 11:21 04/03/25. Ambulatory to room. GENERAL / NEURO / PSYCH: Alert. Oriented X 4. Appears in pain. HEENT: Pupils equal, round and reactive to light. No facial asymmetry noted. Mucous membranes are pink. RESPIRATORY: Respirations not labored. GI / : Abdomen soft and normal bowel sounds. Abdominal tenderness. SKIN: Skin intact. Skin is warm and dry. Normal skin turgor. VITAL SIGNS First Vitals Last Vitals Temp 11:11 04/03/25 97.8 F Temp 11:04/03/25 97.8 F BP 11:11 04/03/25 132/95 BP 11:11 04/03/25 132/95 HR 11:11 04/03/25 76 HR 11:11 04/03/25 76 RR 11:11 04/03/25 14 RR 11:11 04/03/25 14 O2 Sat 11:11 04/03/25 99% O2 Sat 11:11 04/03/25 99% Pain 11:11 04/03/25 8 Pain 11:11 04/03/25 8 ETCO2 11:11 04/03/25 ETCO2 11:11 04/03/25 GCS 11:11 04/03/25 GCS 11:11 04/03/25 RTS 11:11 04/03/25 RTS 11:11 04/03/25 PROCEDURES NURSING INTERVENTIONS LABS / STUDIES LABS / STUDIES ORDERED CBC w Diff CMP CT ABD/PEL wo Cont Lactate, Serum Lipase Urinalysis CLINICAL IMPRESSION 3 of 4 Visit Overview CHRONIC GENERALIZED ABDOMINAL PAIN OF UNDETERMINED CAUSE, NOW RESOLVED VOMITING WITH NAUSEA, DEHYDRATION AND VOLUME DEPLETION. NOT INTRACTABLE OR BILIOUS 4 of 4 URINALYSIS Collected: 6:40 AM Status: F Source: [facility] TYPE CODE TESTS RESULT OUT OF RANGE REFERENCE UNITS LAB URINALYSIS(ISAIAH [place]) URINALYSIS Result Comment: URINALYSIS LAB Specimen Type(LOINC) Specimen Type R LAB Color(LOINC) Color yellow NORMAL: YELLOW LAB Clarity(LOINC) Clarity clear RAJIV L: CLEAR LAB ph(LOINC) ph 6.5 NORMAL: 5.0-8.0 LAB Protein(LOINC) Protein 15 Abnormal RAJIV L: NEGATIVE LAB Glucose(LOINC) Glucose NORM RAJIV L: NORMAL LAB Ketone(LOINC) Ketone NEG NORMAL : NEGATIVE LAB Bilirubin(LOIN C) Bilirubin NEG NORMAL: NEGATIVE LAB Blood(LOINC) Blood 10 Abnormal NORMAL: NEGATIVE LAB Urobilinog(ISAIAH NC) Urobilinog NORM NORMAL: NORMAL LAB Sp Stem(LOINC) Sp Stem 1.015 NORMAL: 1.010-1.030 LAB Nitrite(LOINC) Nitrite NEG RAJIV L: NEGATIVE LAB Leukocytes(ISAIAH NC) Leukocytes 25 Abnormal NORMAL: NEGATIVE LAB Microscopic(LO INC) Microscopic SEE BELOW Result Comment: MICROSCOPIC LAB Wbc(LOINC) Wbc 1-5 0-5/hpf LAB Rbc(LOINC) Rbc NONE 0-3/hpf LAB Casts(LOINC) Casts NONE LAB Crystals(LOINC ) Crystals NONE LAB Amorphous(LOIN C) Amorphous NONE LAB Bacteria(LOINC ) Bacteria NONE LAB Epi Cells(LOINC) Epi Cells OCC LAB Mucous(LOINC) Mucous NONE LAB Yeast(LOINC) Yeast NONE Performed By: #### [id number] ## ## [place] [id number] SERUM QUAL Collected: 04/01/2025 4:15 AM S tatus: F Source: [facility] TYPE CODE TESTS RESULT OUT OF RANGE REFERENCE UNITS LAB SER(LOINC) SER NEGATIVE NEGATIVE LAB INTERNAL QC(LOINC) INTERNAL QC PASS LAB EXTERNAL QC DONE?(LOINC) EXTERNAL QC DONE? YES Performed By: #### [id number] ## ## [place] [id number] LIPASE Collected: 5 4:15 AM Status: F Source: [facility] TYPE CODE TESTS RESULT OUT OF RANGE REFERENCE UNITS LAB LIPASE(INC) LIPASE 169.0 High 15.0 - 78.0 U/L Result Comment: *PLEASE NOTE THAT RANGES FOR LIPASE HAVE CHANGED OF 10/31/23 DUE TO AN ASSAY UPDATE BY THE ELECTRONICS ENGINEERING TECHNOLOGIST.THE NEW ASSAY RANGE IS 6-250 U/L, WITH A REFERENCE RANGE OF 16-77 U/L. Performed By: #### [id number] ## ## [facility],[address] [place] [id number] CBC + DIFF Collected: 5 4:15 AM Status: F Source: [facility] TYPE CODE TESTS RESULT OUT OF RANGE REFERENCE UNITS LAB CBC + DIFF(LOINC) CBC + DIFF Result Comment: CBC-COMPLETE BLOOD COUNT LAB WBC(LOINC) WBC 11.3 High 4.5 - 10.8 x 10EE3/UL LAB RBC(LOINC) RBC 4.20 4.10 - 5.30 x 10EE6/UL LAB HEMOGLOBIN(ISAIAH NC) HEMOGLOBIN 14.3 12.0 - 16.0 g/dl LAB HEMATOCRIT(ISAIAH NC) HEMATOCRIT 40.5 34.0 - 46.0 % LAB MCV(LOINC) MCV 97 80 - 99 fl LAB MCH(LOINC) MCH 34 High 27 - 33 pg LAB MCHC(LOINC) MCHC 35 32 - 36 X10 3 LAB RDW/CV(LOINC) RDW/CV 13.9 12.0 - 15.6 % LAB PLATELET(LOINC ) PLATELET 406 150 - 450 x10EE3/UL LAB MPV(LOINC) MPV 7.2 6.6 - 10.5 fl Result Comment: AUTOMATED DI FFERENTIAL LAB NEUT %(LOINC) NEUT % 63.5 46.0 - 76.0 % LAB LYMPH %(LOINC) LYMPH % 25.5 20.0 - 45.0 % LAB MONOS %(LOINC) MONOS % 8.4 0.0 - 10.0 % LAB EO %(LOINC) EO % 2.1 0.0 - 7.0 % LAB BASO %(LOINC) BASO % 0.5 0.0 - 2.0 % LAB Lymph #(LOINC) Lymph # 2.89 High 0.80 - 2.80 x10EE 3/UL LAB Neut #(LOINC) Neut # 7.19 High 1.50 - 7.10 x10EE3 /UL LAB Green #(LOINC) Green # 0.95 0.20 - 1.00 x10EE3 /UL LAB EO #(LOINC) EO # 0.24 0.00 - 0.50 x10EE3/U L LAB Baso #(LOINC) Baso # 0.05 0.00 - 0.10 x10EE3 /UL LAB MANUAL DIFF(LOINC) MANUAL DIFF N/A LAB MORPHOLOGY(ISAIAH NC) MORPHOLOGY N/A Performed By: #### [id number] ## ## [place] [id number] LACTATE Collected: 4:15 AM Status: F Source: [facility] TYPE CODE TESTS RESULT OUT OF RANGE REFERENCE UNITS LAB LACTATE(LOINC) LACTATE 1.7 0.4 - 2.0 mmol/L Performed By: #### [id number] ## ## [place] [id number] TROPONIN Collected: 4:15 AM Status: F Source: [facility] TYPE CODE TESTS RESULT OUT OF RANGE REFERENCE UNITS LAB HS TROPONIN(LOINC) HS TROPONIN 4.1 0.0 - 51.4 pg/mL Performed By: #### [id number] ## ## [place] [id number] CORONAVIRUS (SARS) ANTIGEN TEST Collect ed: 04/01/2025 4:15 AM Status: F Source: [facility] TYPE CODE TESTS RESULT OUT OF RANGE REFERENCE UNITS LAB SARS ANTIGEN(LOINC) SARS ANTIGEN NEGATIVE NORMAL: NEGATIVE LAB INTERNAL CONTROL(LOINC) INTERNAL CONTROL PASS LAB EXTERNAL QC DONE?(LOINC) EXTERNAL QC DONE? YES LAB SEND TO IC?(LOINC) SEND TO IC? NO Result Comment: SARS-CoV-2 THIS TEST IS BEING USED UNDER THE FDA EUA PROCEDURE. THIS ASSAY HAS BEEN VALIDATED AT [facility] FOR USE WITH NASAL AND NASOPHARYNGEAL SWAB SPECIMENS. INTERPRETIVE DATA TEST RESULTS SHOULD ALWAYS BE CONSIDERED IN THE CONTEXT OF CLINICAL OBSERVATIONS AND EPIDEMIOLOGICAL DATA IN MAKING FINAL DIAGNOSIS AND PATIENT MANAGEMENT DECISIONS. PATIENT MANAGEMENT SHOULD FOLLOW CURRENT CDC GUIDELINES. THE KRISTEN SARS ANTIGEN MAYNOR DOES NOT DIFFERENTIATE BETWEEN SARS-CoV & SARS-CoV-2. A POSITIVE TEST RESULT INDICATES THE PRESENCE OF SARS-CoV-2 NUCLEOCAPSID PROTEIN ANTIGEN, AND THE PATIENT IS INFECTED WITH THE VIRUS AND PRESUMED TO BE CONTAGIOUS. A NEGATIVE TEST RESULT FOR THIS TEST MEANS THAT SARS-CoV-2 NUCLEOCAPSID PROTEIN ANTIGEN WAS NOT PRESENT IN THE SPECIMEN ABOVE THE LIMIT OF DETECTION. HOWEVER, A NEGATIVE RESULT DOES NOT RULE OUT COVID-19 AND SHOULD NOT BE USED THE SOLE BASIS FOR TREATMENT OR PATIENT MANAGEMENT DECISIONS. A NEGATIVE RESULT DOES NOT EXCLUDE THE POSSIBILITY OF COVID-19. NEGATIVE RESULTS, FROM PATIENTS WITH SYMPTOM ONSET BEYOND FIVE DAYS, SHOULD BE TREATED PRESUMPTIVE AND CONFIRMATION WITH A MOLECULAR ASSAY, IF NECESSARY, FOR PATIENT MANAGEMENT, MAY BE PERFORMED. WHEN DIAGNOSTIC TESTING IS NEGATIVE, THE POSSIBLILTY OF A FALSE NEGATIVE RESULT SHOULD BE CONSIDERED IN THE CONTEXT OF A PATIENT'S RECENT EXPOSURES AND THE PRESENCE OF CLINICAL SIGNS AND SYMPTOMS CONSISTENT WITH COVID-19. THE POSSIBILITY OF A FALSE NEGATIVE RESULT SHOULD ESPECIALLY BE CONSIDERED IF THE PATIENT'S RECENT EXPOSURES OR CLINICAL PRESENTATION INDICATE THAT COVID-19 IS LIKELY, AND DIAGNOSTIC TESTS FOR OTHER CAUSES OF ILLNESS (e.g., OTHER RESPIRATORY ILLNESS) ARE NEGATIVE. IF COVID-19 IS STILL SUSPECTED BASED ON EXPOSURE HISTORY TOGETHER WITH OTHER CLINICAL FINDINGS, RE-TESTING SHOULD BE CONSIDERED BY HEALTHCARE PROVIDERS IN CONSULTATION WITH PUBLIC HEALTH AUTHORITIES. Performed By: #### [id number] ## ## [facility],[address] [place] [address] INFLUENZA VIRUS RAPID A/B Observed: 03/05 4:15 AM Status: F Source: [facility] INFLUENZA A NEGATIVE INFLUENZA B NEGATIVE INTERNAL NEG QC PASS INTERNAL POS QC PASS EXTERNAL QC DONE? YES SEND TO IC? HÉCTOR NEGATIVE TEST RESULT DOES NOT EXCLUDE INFECTION WITH INFLUENZA A OR B. THEREFORE, THE RESULTS OBTAINED FROM THIS FLU TEST SHOULD BE USED IN CONJUCTION WITH CLINICAL FINDINGS TO MAKE AN ACCURATE DIAGNOSIS. A POSITIVE RESULT DOES NOT RULE OUT CO-INFECTIONS WITH OTHER PATHOGENS OR IDENTIFY ANY SPECIFIC INFLUENZA A VIRUS SUBTYPE.CO-INFECTION WITH INFLUENZA A AND B IS RARE. IT IS RECOMMENDED THAT "DUAL POSITIVE" RESULTS BE CONFIRMED BY VIRAL CULTURE OR AN FDA-CLEARED INFLUENZA A AND B MOLECULAR ASSAY. INDIVIDUALS WHO HAVE RECEIVED NASALLY ADMINISTERED INFLUENZA A VACCINE MAY TEST POSITIVE IN COMMERCIALLY AVAILABLE INFLUENZA RAPID DIAGNOSTIC TESTS FOR UP TO THREE DAYS. RESULT CRITICAL? NO Performed By: #### [id number] ## ## [facility],[address] [place] [address] CMP WITH EGFR Collected: 5 4:15 AM Status: F Source: [facility] TYPE CODE TESTS RESULT OUT OF RANGE REFERENCE UNITS LAB CMP with eGFR(LOINC) CMP with eGFR Result Comment: COMPREHENSIV E METABOLIC PANEL LAB SODIUM(LOINC) SODIUM 142 136 - 145 mmol/l LAB POTASSIUM(LOIN C) POTASSIUM 4.1 3.5 - 5.1 mmol/L LAB CHLORIDE(LOINC ) CHLORIDE 105 98 - 107 mmol/L LAB CO2(LOINC) CO2 26.8 21.0 - 32.0 mmol/L LAB GLUCOSE(LOINC) GLUCOSE 91 74 - 106 mg/dl LAB BUN(LOINC) BUN 11 7 - 18 mg/dl LAB CREATININE(ISAIAH NC) CREATININE 1.04 High 0.55 - 1.02 mg/dl LAB AST/SGOT(LOINC ) AST/SGOT 16 13 - 39 U/L LAB ALK PHOS(LOINC) ALK PHOS 79 46 - 116 U/L LAB CALCIUM(LOINC) CALCIUM 8.9 8.5 - 10.1 mg/dl LAB TOTAL PROTEIN(LOINC) TOTAL PROTEIN 6.8 6.4 - 8.2 g/dl LAB ALBUMIN(LOINC) ALBUMIN 3.6 3.4 - 5.0 g/dL LAB GLOBULIN(LOINC ) GLOBULIN 3.2 1.5 - 3.8 G/DL LAB A/G RATIO(LOINC) A/G RATIO 1.1 0.9 - 1.6 LAB TOTAL BILI(LOINC) TOTAL BILI 0.3 0.2 - 1.0 mg/dl LAB B/C RATIO(LOINC) B/C RATIO 11 0 - 30 ratio LAB ALT/SGPT(LOINC ) ALT/SGPT 16 16 - 63 U/L LAB ANION GAP(LOINC) ANION GAP 14 10 - 20 mmol/L LAB AGE(LOINC) AGE 34 years LAB eGFR(LOINC) eGFR 60 60 - 999 ML/MINUT E LAB eGFR(AA)(LOINC ) eGFR(AA) >60 60 - 999 ML/MINUT E Result Comment: ACCORDING TO THE NATIONAL KIDNEY DISEASE EDUCATION PROGRAM(NKDE), A NORMAL eGFR IS A VALUE GREATER THAN OR EQUAL TO 60 ML/MIN/1.73 SQ METERS. CHRONIC KIDNEY DISEASE: <60mL/MIN/1.73 SQ METERS KIDNEY FAILURE: <15mL/MIN/1.73 SQ METERS THIS TEST SHOULD ONLY BE USED FOR PATIENTS 18 YEARS OF AGE AND OLDER. Performed By: #### [id number] ## ## [facility],[address] [place] [id number] ED SUPER BILL Observed: 04/01/2025 3:55 AM Status: F Source: [address] [address] [phone] 04/01/2025 Patient: TOR BERMAN Sex: Female : 1990 Age: 34y Item Facility Professional Category Description Code Code Quantity Fee Total Drugs Normal Saline 694877 1 $0.00 $0.00 1000cc (995301) Nurse/E/M EMERGENCY 918913 1 $0.00 $0.00 DEPARTMENT VISIT HIGH/URGENT SEVERITY (85075-77) Nurse/IV/IM/Infusions Hydration 220726 1 $0.00 $0.00 additional hour (50458) Nurse/IV/IM/Infusions IVP additional 976932 2 $0.00 $0.00 push (22046) Nurse/IV/IM/Infusions IVP initial 979942 1 $0.00 $0.00 (08025) Grand Total $0.00 Providers Gonzalez Pineda D.O. 1 of 2 [facility] Chief Complaint VOMITING and DIARRHEA. Principal Diagnosis Vomiting with nausea. Diarrhea ICD-10 Codes R11.2: Nausea with vomiting, unspecified R19.7: Diarrhea, unspecified 2 of 2 ED NURSES CLINICAL NOTE Observed: 2024 3:55 AM Status: F Source: [facility] Nurse Narrative Nurse Clinical Narrative [address] [address] [id number] 04/01/2025 03:55:00 Patient: TOR BERMAN Sex: Female : 1990 Age: 34y Disposition: Discharge to Home Disposition Decision Time: 05:51 04/01/2025 Departure Time: 07:04 04/01/2025 TRIAGE Arrived by EMS. Historian: (patient). Primary physician (Pace). Triage time: 04:02 04/01/2025. Acuity: LEVEL 3. Chief Complaint: ABDOMINAL PAIN, NAUSEA, VOMITING and DIARRHEA and (X 24 hours). Alert. The patient has had nausea, vomiting, diarrhea and abdominal pain. SEPSIS SCREEN: NEGATIVE. SIRS criteria negative. No possible sources of infection. -- 04:06 04/01/25 EDT Sandra Chavez R.N. 04:03 04/01/25. BP: 158/112 (small cuff) taken on right arm. MAP: 127. HR: 63. Regular and normal rate. RR: 20. Regular and unlabored. O2 saturation: 98% on room air. Temperature: 97.6 F (oral). Pain level now 7/10. Describes the pain as aching. Constant. (abdominal pain). -- 04:04 04/01/25 EDT Sandra Chavez R.N. Measurements: 04:05 04/01/25 Wt: 52.2 kg, Ht/Aden: 65.0 in, BMI: 19.14 -- 04:05 04/01/25 EDT Sandra Chavez R.N. Medications: zofran: 4 mg every 6 hours . -- 04:03 04/01/25 EDT Sandra Chavez R.N. lexapro: 20 mg once a day . -- 04:03 04/01/25 EDT Sandra Chavez R.N. 1 of 4 Nurse Narrative Lorazepam Intensol 2 mg/mL oral concentrate: 1 mg three times a day . -- 04:04/01/25 EDT Sandra Chavez R.N. oxycodone 10 mg tablet: 10 mg every 6 hours . -- 04:03 04/01/25 EDT Sandra Chavez R.N. Allergies: Penicillins -- 04:02 04/01/25 EDT Sandra Chavez R.N. Haldol -- 04:02 04/01/25 EDT Sandra Chavez R.N. Problems: Cancer. (stage 3 cervicle. Currently in remission) -- 04:03 04/01/25 EDT Sandra Chavez R.N. Renal Failure. (Left kidney only) -- 04:03 04/01/25 EDT Sandra Chavez R.N. Depression -- 04:03 04/01/25 EDT Sandra Chavez R.N. Anxiety disorder -- 04:03 04/01/25 EDT Sandra Chavez R.N. Surgeries: nephrostomy tube -- 04:03 04/01/25 EDT Sandra Chavez R.N. cervicle biopsy -- 04:03 04/01/25 LILIANAT Sandra Chavez R.N. History 04:02 04/01/25. SOCIAL HX: Current every day light tobacco smoker (cigarette)- less than 1/2 a pack per day. Occasional drug use: marijuana. No alcohol use. The patient has not traveled outside the [place] Infectious disease exposure: No infectious disease exposure. ABUSE ASSESSMENT: The patient answered "yes" to the question(s) "Do you feel safe in your home?" and "no" to the question(s) "Are you afraid to go home?". SELF HARM ASSESSMENT: Self harm assessment was performed. The patient answered no to the question(s) "Have you recently felt down, depressed, or hopeless?" and "Do you have thoughts of harming or killing yourself?". FALL RISK ASSESSMENT: Fall risk assessment completed. No risk factors identified. -- 04:06 04/01/25 EDT Sandra Chavez R.N. Interventions 2 of 4 Nurse Narrative 04:02 04/01/25. Identification band and allergy band on patient. Advanced care plan discussed with patient. Patient does not have advanced directive. -- 04:06 04/01/25 LILIANAT Sandra Chavez R.N. PHYSICAL ASSESSMENT 04:20 04/01/25. To room via stretcher. Patient gowned. GENERAL / NEURO / PSYCH: Alert. Oriented X 4. Appears in no acute distress. ( NVD x 24 hours, unable to keep her po zofran down endorses generalized 7-8/10 pain.). RESPIRATORY: Respirations not labored. GI / : The patient has had intermittent episodes of nausea and intermittent diarrhea. Emesis noted. Abdomen soft and nontender. ( pt has left sided nephrostomy tube, not on dialysis). SKIN: Skin is warm and dry. -- 04:25 04/01/25 EDT Louis Darden R.N. NURSING PROGRESS NOTES 04:04/01/25. Ondansetron IVP 4 mg given over 1 minute(s) via Site# 1. Allergies verified and confirmed 5 rights. IV patency established. IV site checked: no pain, redness, or swelling. IV flushed thoroughly pre-medication administration. Information reviewed with patient including reason for taking this medication. Verbalizes understanding. -- 04:16 04/01/25 EDT Sandra Chavez R.N. 04:04/01/25. Site #1 started via IV in the right antecubital space with a 22g angiocath with aseptic technique and good blood return; 1 attempt. Blood drawn: rainbow set and arriola tube(s). Labeled in the presence of the patient and sent to the lab. Saline lock flushed with 5 mL saline. -- 04:04/01/25 EDT Sandra Chavez R.N. 04:04/01/25. IV NS 0.9 % 1000 mL started in bag#1 1000 mL at 999 mL/hr over 1 hour(s) via Site# 1. Allergies verified and confirmed 5 rights. IV patency established. IV site checked: no pain, redness, or swelling. IV flushed thoroughly pre-medication administration. Information reviewed with patient including reason for taking this medication. Verbalizes understanding. Completed per protocol. -- 04:17 04/01/25 EDT Sandra Chavez R.N. 04:04/01/25. NIBP monitor and pulse oximeter placed on patient. Patient gowned. Head of bed elevated 45 degrees. Patient identifiers checked. Call light placed in reach. Side rails up x 1. Bed placed in lowest position. Brakes of bed on. -- 04:04/01/25 EDT Louis Darden R.N. 04:04/01/25. 12-LEAD EKG: EKG time: (04:04/01/2025). 12-Lead EKG was ordered, performed by me and shown to the ED physician (04:04/01/2025). -- 05:07 04/01/25 EDT Sandra Chavez R.N. 05:11 04/01/25. KetorOLAC (Toradol) IVP 15 mg given via Site# 1. Allergies verified and confirmed 5 rights. IV patency established. IV site checked: no pain, redness, or swelling. IV flushed thoroughly pre-medication administration. IVP given by nurse. Information reviewed with patient including reason for taking this medication. Verbalizes understanding. (7-8/10 generalized pain). Medication Wastage: 15 mg wasted. -- 05:12 04/01/25 EDT Louis Darden R.N. 05:33 04/01/25. BP: 110/76 MAP: 88 mmHg. HR: 57 bpm. -- 05:56 04/01/25 EDT Louis Darden R.N. 05:04/01/25. HR: 60 bpm. O2 saturation: 98%. -- 05:56 04/01/25 EDT Louis Darden R.N. 3 of 4 Nurse Narrative 05:42 04/01/25. IV NS 0.9 %: Medication Discontinued. bag #1. Total amount infused: 1000 mL. IV patency established. IV site checked: no pain, redness, or swelling. IV flushed thoroughly post-medication administration. -- 05:42 04/01/25 EDT Louis Darden R.N. 05:53 04/01/25. HYDROmorphone (Dilaudid) IVP 0.5 mg given via Site# 1. Allergies verified and confirmed 5 rights. IV patency established. IV site checked: no pain, redness, or swelling. IV flushed thoroughly pre-medication administration. IVP given by nurse. Information reviewed with patient including reason for taking this medication. Verbalizes understanding. (7/10 pain, generalized). Medication Wastage: 0.5 mg wasted. -- 05:54 04/01/25 EDT Louis Darden R.N. 05:56 04/01/25. ( pt reports nausea improved, generalized pain 7/10 , pt medicated w/ dilaudid for this, and now w/o urine spec, pt aware for dispo, also given po fluids, water to assess ability to keep fluids down.). -- 05:56 04/01/25 EDT Louis Darden R.N. 05:56 04/01/25. RR: 16. Pain level now 05/12. -- 05:56 04/01/25 EDT Louis Darden R.N. 05:56 04/01/25. RR: 16. Pain level now 05/12. -- 05:56 04/01/25 EDT Louis Darden R.N. 06:33 04/01/25. BP: 115/79 MAP: 89 mmHg. HR: 57 bpm. -- 07:04/01/25 EDT Louis Darden R.N. 06:33 04/01/25. HR: 68 bpm. O2 saturation: 98%. -- 07:04/01/25 EDT Louis Darden R.N. 06:38 04/01/25. HR: 60 bpm. O2 saturation: 98%. -- 07:04/01/25 EDT Louis Darden R.N. 06:42 04/01/25. The patient reports no complaints and the patient is calm and resting quietly. ( urinalysis obtained, pt has been up to bathroom to provide voided spec. tolerating po fluids w/out vomiting.). Patient waiting for lab results. -- 07:04/01/25 EDT Louis Darden R.N. 07:04/01/25. RR: 16. Pain level now 02/10. -- 07:04/01/25 EDT Louis Darden R.N. 07:04 04/01/25. RR: 16. Pain level now 02/10. -- 07:04/01/25 EDT Louis Darden R.N. DISPOSITION / DISCHARGE 07:04/01/25. Condition at departure: improved. Discharge instructions provided and reviewed. Reviewed medication(s) dosing and course information. Prescription(s) given to the patient and sent electronically to pharmacy. Verbalized understanding. Written instructions provided in [place]. The patient was discharged home and accompanied by co-worker. The patient left ambulatory and via private vehicle. Driving (co-worker (employer)). -- 07:09 04/01/25 EDT Louis Darden R.N. Departure time: 07:04 04/01/2025. -- 07:09 04/01/25 EDT Louis Darden R.N. 07:04 04/01/25. Site #1 removed upon discharge. Catheter intact. Bandage applied. -- 07:11 04/01/25 EDT Louis Darden R.N. (Electronically signed by Louis Darden R.N. 04/01/25 07:11:31 EDT) Generated by [facility] 4 of 4 ED VITALS FLOW SHEET Observed: 3:55 AM Status: F Source: [facility] Vitals Vital Sign Flow Sheet [address] [address] [id number] 04/01/2025 Patient: TOR BERMAN Sex: Female : 1990 Age: 34y Measurements Wt: 52.2 kg, Ht/Aden: 65.0 in, BMI: 19.14 Measured Time BP MAP HR RR O2Sat ETCO2 Temp Pain GCS RTS 07:04 04/01/2025 16 4 06:38 04/01/2025 60 98% 06:33 04/01/2025 68 98% 06:33 04/01/2025 115/79 89 57 06:28 04/01/2025 63 98% 06:23 04/01/2025 63 98% 06:18 04/01/2025 63 98% 06:13 04/01/2025 65 98% 06:08 04/01/2025 61 98% 06:03 04/01/2025 116/94 99 61 06:03 04/01/2025 60 98% 05:58 04/01/2025 60 98% 05:56 04/01/2025 16 7 05:53 04/01/2025 69 97% 05:48 04/01/2025 64 98% 1 of 2 Vitals Measured Time BP MAP HR RR O2Sat ETCO2 Temp Pain GCS RTS 05:43 04/01/2025 59 98% 05:38 04/01/2025 55 98% 05:33 04/01/2025 60 98% 05:33 04/01/2025 110/76 88 57 05:28 04/01/2025 70 99% 05:23 04/01/2025 62 97% 05:18 04/01/2025 60 98% 05:13 04/01/2025 60 99% 05:08 04/01/2025 64 99% 05:03 04/01/2025 60 99% 05:03 04/01/2025 122/83 103 61 04:58 04/01/2025 55 98% 04:53 04/01/2025 64 98% 04:48 04/01/2025 65 97% 04:43 04/01/2025 59 99% 04:38 04/01/2025 62 99% 04:33 04/01/2025 113/83 95 61 04:33 04/01/2025 63 98% 04:28 04/01/2025 59 98% 04:03 04/01/2025 158/112 127 63 20 98% RA 97.6 F 7 2 of 2 ED MED ADMINISTRATION DETAIL Observed: 0 04/01/2025 3:55 AM Status: F Source: [facility] Counter Top Maker Medication Administration Record [address] [place] [address] [id number] 04/01/2025 Patient: TOR BERMAN Sex: Female : 1990 Age: 34y MEASUREMENTS: Wt: 52.2 kg, Ht/Aden: 65.0 in, BMI: 19.14 ALLERGIES: Haldol, Penicillins Medication Ordered Medication Administration Date/Time IV NS 0.9 % 1000 04:16 04/01 IV NS 0.9 % 1000 mL started in bag#1 1000 mL at Started mL at 999 mL/hr 999 mL/hr over 1 hour(s) via Site# 1. Allergies verified and 04:16 04/01/2025 (NOW x1) confirmed 5 rights. IV patency established. IV site checked: no pain, Sandra Rutt, R.N. redness, or swelling. IV flushed thoroughly pre-medication Stopped administration. Information reviewed with patient including reason 05:42 04/01/2025 for taking this medication. Verbalizes understanding. Completed per Louis Darden R.N. protocol. - 04:17 Sandra Chavez R.N. Scanned 05:42 04/01 Medication Discontinued: bag #1. Total amount infused: 1000 mL. IV patency established. IV site checked: no pain, redness, or swelling. IV flushed thoroughly post-medication administration. - 05:42 Louis Darden R.N. Ondansetron IVP 4 04:16 04/01 Ondansetron IVP 4 mg given over 1 minute(s) via Given mg (NOW x1) Site# 1. Allergies verified and confirmed 5 rights. IV patency 04:16 04/01/2025 established. IV site checked: no pain, redness, or swelling. IV Sandra Chavez R.N. flushed thoroughly pre-medication administration. Information Scanned reviewed with patient including reason for taking this medication. Verbalizes understanding. - 04:16 Sandra Chavez R.N. 1 of 2 Counter Top Maker Medication Ordered Medication Administration Date/Time KetorOLAC 05:04/01 KetorOLAC (Toradol) IVP 15 mg given via Site# 1. Given (Toradol) IVP 15 mg Allergies verified and confirmed 5 rights. IV patency established. IV 05:04/01/2025 (NOW x1) site checked: no pain, redness, or swelling. IV flushed thoroughly Louis Darden R.N. pre-medication administration. IVP given by nurse. Information Scanned reviewed with patient including reason for taking this medication. Verbalizes understanding. (7-8/ generalized pain). Medication Wastage: 15 mg wasted. - 05:12 Louis Darden R.N. HYDROmorphone 05:53 04/01 HYDROmorphone (Dilaudid) IVP 0.5 mg given via Given (Dilaudid) IVP 0.5 Site# 1. Allergies verified and confirmed 5 rights. IV patency 05:53 04/01/2025 mg (NOW x1, HIGH established. IV site checked: no pain, redness, or swelling. IV Louis Darden R.N. ALERT flushed thoroughly pre-medication administration. IVP given by Scanned MEDICATION) nurse. Information reviewed with patient including reason for taking this medication. Verbalizes understanding. (05/12 pain, generalized). Medication Wastage: 0.5 mg wasted. - 05:54 Louis Darden R.N. 2 of 2 ED PHYSICIAN CLINICAL REPORT Observed: 0 04/01/2025 3:55 AM Status: F Source: [facility] Narrative Physician Clinical Narrative [facility] [address] [facility] [place] [address] [phone] 04/01/2025 03:55:00 Patient: TOR BERMAN Sex: Female : 1990 Age: 34y Disposition: Discharge to Home Disposition Decision Time: 05:51 04/01/2025 Departure Time: 07:04 04/01/2025 Measurements Wt: 52.2 kg, Ht/Aden: 65.0 in, BMI: 19.14 Initial Vital Sign Measured Time BP MAP HR RR O2Sat ETCO2 Temp Pain GCS RTS 04:03 04/01/2025 158/112 127 63 20 98% RA 97.6 F 7 Time Seen: 03:49 04/01/2025. Arrived- By ambulance. Historian- patient. Independent historian- EMS personnel. HISTORY OF PRESENT ILLNESS Chief Complaint: VOMITING and DIARRHEA. The patient has had nausea, vomiting and diarrhea. This started yesterday and is still present. Similar symptoms previously. Patient has had similar symptoms several times. Recent medical care: The patient was seen recently at this facility in the office. ( seen here march. saw her doctor [address] Sanders her urologist and Dr. Pace her palliative care doctor both on Friday.). REVIEW OF SYSTEMS MUSCULOSKELETAL: No back pain. CONSTITUTIONAL: No fever or muscle aches. THROAT: No sore throat. RESPIRATORY: No cough or difficulty breathing. CVS: No chest pain. SKIN: No skin rash or jaundice. 1 of 17 Narrative : No difficulty with urination, dark urine or excessive urination. NEUROLOGICAL: No headache, dizziness or fainting episodes. EYES: No blurred vision. PAST HISTORY See nurses notes. Anxiety disorder Cancer: (stage 3 cervicle. Currently in remission) Depression Renal Failure: (Left kidney only) Surgeries: cervicle biopsy nephrostomy tube Medications: lexapro: 20 mg once a day . Lorazepam Intensol 2 mg/mL oral concentrate: 1 mg three times a day . oxycodone 10 mg tablet: 10 mg every 6 hours . zofran: 4 mg every 6 hours . Allergies: Haldol Penicillins SOCIAL HISTORY Heavy tobacco smoker- less than 1 pack per day. Drug use: marijuana. No alcohol use. ADDITIONAL NOTES The nursing notes have been reviewed. PHYSICAL EXAM Appearance: Alert. Oriented X3. No acute distress. Eyes: Pupils equal, round and reactive to light. ENT: Nose normal. Dry mucous membranes present. Pharynx normal. 2 of 17 Narrative Neck: Normal inspection. Neck supple. CVS: Normal heart rate and rhythm. Heart sounds normal. Pulses normal. Respiratory: No respiratory distress. Painless inspiration. Abdomen: Soft and nontender. Bowel sounds normal. No mass. Skin: Skin warm and dry. No rash. Extremities: Extremities exhibit normal ROM. No lower extremity edema. Neuro: Oriented X 3. No motor deficit. No sensory deficit. LABS, X-RAYS, AND EKG 12-LEAD EKG: EKG time: 04:04/01/2025. Normal sinus rhythm. Rate: 60. Normal P waves. Normal QRS complex. Normal ST and T waves. The study has been interpreted contemporaneously by me. The EKG appears to be a good tracing. Interpretation time: 04:04/01/2025. Laboratory Tests: CBC + DIFF Final BINA: 04/01/2025 04:15:00 EDT MsgRcvd: 04/01/2025 04:38 EDT Lab Test Result Reference Status Received Comments 04/01/2025 04:38 CBC-COMPLETE CBC + DIFF Final EDT BLOOD COUNT 11.3 x 10/UL 04/01/2025 04:38 WBC 4.5 - 10.8 Final Above high normal EDT 04/01/2025 04:38 RBC 4.20 x 10/UL 4.10 - 5.30 Final EDT 04/01/2025 04:38 HEMOGLOBIN 14.3 g/dl 12.0 - 16.0 Final EDT 04/01/2025 04:38 HEMATOCRIT 40.5 % 34.0 - 46.0 Final EDT 04/01/2025 04:38 MCV 97 fl 80 - 99 Final EDT 3 of 17 Narrative Lab Test Result Reference Status Received Comments 34 pg 04/01/2025 04:38 MCH 27 - 33 Final Above high normal EDT 04/01/2025 04:38 MCHC 35 X10 3 32 - 36 Final EDT 04/01/2025 04:38 RDW/CV 13.9 % 12.0 - 15.6 Final EDT 04/01/2025 04:38 PLATELET 406 x10/UL 150 - 450 Final EDT 04/01/2025 04:38 AUTOMATED MPV 7.2 fl 6.6 - 10.5 Final EDT DIFFERENTIAL 04/01/2025 04:38 NEUT % 63.5 % 46.0 - 76.0 Final EDT 04/01/2025 04:38 LYMPH % 25.5 % 20.0 - 45.0 Final EDT 04/01/2025 04:38 MONOS % 8.4 % 0.0 - 10.0 Final EDT 04/01/2025 04:38 EO % 2.1 % 0.0 - 7.0 Final EDT 04/01/2025 04:38 BASO % 0.5 % 0.0 - 2.0 Final EDT 2.89 x10/UL 04/01/2025 04:38 Lymph # 0.80 - 2.80 Final Above high normal EDT 7.19 x10/UL 04/01/2025 04:38 Neut # 1.50 - 7.10 Final Above high normal EDT 04/01/2025 04:38 Green # 0.95 x10/UL 0.20 - 1.00 Final EDT 4 of 17 Narrative Lab Test Result Reference Status Received Comments 04/01/2025 04:38 EO # 0.24 x10/UL 0.00 - 0.50 Final EDT 04/01/2025 04:38 Baso # 0.05 x10/UL 0.00 - 0.10 Final EDT 04/01/2025 04:38 MANUAL DIFF N/A New Order EDT 04/01/2025 04:38 MORPHOLOGY N/A New Order EDT CMP with eGFR Final BINA: 04/01/2025 04:15:00 EDT MsgRcvd: 04/01/2025 04:54 EDT Lab Test Result Reference Status Received Comments COMPREHENSIVE 04/01/2025 CMP with eGFR Final METABOLIC 04:54 EDT PANEL 04/01/2025 SODIUM 142 mmol/l 136 - 145 Final 04:54 EDT 04/01/2025 POTASSIUM 4.1 mmol/L 3.5 - 5.1 Final 04:54 EDT 04/01/2025 CHLORIDE 105 mmol/L 98 - 107 Final 04:54 EDT 04/01/2025 CO2 26.8 mmol/L 21.0 - 32.0 Final 04:54 EDT 04/01/2025 GLUCOSE 91 mg/dl 74 - 106 Final 04:54 EDT 04/01/2025 BUN 11 mg/dl 7 - 18 Final 04:54 EDT 5 Narrative Lab Test Result Reference Status Received Comments 1.04 mg/dl 04/01/2025 CREATININE Above high 0.55 - 1.02 Final 04:54 EDT normal 04/01/2025 AST/SGOT 16 U/L 13 - 39 Final 04:54 EDT 04/01/2025 ALK PHOS 79 U/L 46 - 116 Final 04:54 EDT 04/01/2025 CALCIUM 8.9 mg/dl 8.5 - 10.1 Final 04:54 EDT TOTAL 04/01/2025 6.8 g/dl 6.4 - 8.2 Final PROTEIN 04:54 EDT 04/01/2025 ALBUMIN 3.6 g/dL 3.4 - 5.0 Final 04:54 EDT 04/01/2025 GLOBULIN 3.2 G/DL 1.5 - 3.8 Final 04:54 EDT 04/01/2025 A/G RATIO 1.1 0.9 - 1.6 Final 04:54 EDT 04/01/2025 TOTAL BILI 0.3 mg/dl 0.2 - 1.0 Final 04:54 EDT 04/01/2025 B/C RATIO 11 ratio 0 - 30 Final 04:54 EDT 04/01/2025 ALT/SGPT 16 U/L 16 - 63 Final 04:54 EDT 04/01/2025 ANION GAP 14 mmol/L 10 - 20 Final 04:54 EDT 04/01/2025 AGE 34 years Final 04:54 EDT Narrative Lab Test Result Reference Status Received Comments 04/01/2025 eGFR 60 ML/MINUTE 60 - 999 Final 04:54 EDT ACCORDING TO THE NATIONAL KIDNEY DISEASE EDUCATION PROGRAM(NKDE), A NORMAL eGFR IS A VALUE GREATER THAN OR EQUAL TO 60 ML/MIN/1.73 SQ METERS. 04/01/2025 CHRONIC KIDNEY eGFR(AA) >60 ML/MINUTE 60 - 999 Final 04:54 EDT DISEASE: <60mL/MIN/1.73 SQ METERS KIDNEY FAILURE: <15mL/MIN/1.73 SQ METERS THIS TEST SHOULD ONLY BE USED FOR PATIENTS 18 YEARS OF AGE AND OLDER. CORONAVIRUS (SARS) ANTIGEN TEST Final BINA: 04/01/2025 04:15:00 EDT MsgRcvd: 04/01/2025 04:56 EDT Lab Test Result Reference Status Received Comments 7 of 17 Narrative Lab Test Result Reference Status Received Comments NORMAL: 04/01/2025 SARS ANTIGEN NEGATIVE Final NEGATIVE 04:56 EDT INTERNAL 04/01/2025 PASS Final CONTROL 04:56 EDT EXTERNAL QC 04/01/2025 YES Final DONE? 04:56 EDT 8 of 17 Narrative Lab Test Result Reference Status Received Comments SARS-CoV-2 THIS TEST IS BEING USED UNDER THE FDA EUA PROCEDURE. THIS ASSAY HAS BEEN VALIDATED AT [facility] FOR USE WITH NASAL AND NASOPHARYNGEAL SWAB SPECIMENS. INTERPRETIVE DATA TEST RESULTS SHOULD ALWAYS BE CONSIDERED IN THE CONTEXT OF CLINICAL OBSERVATIONS AND EPIDEMIOLOGICAL DATA IN MAKING FINAL DIAGNOSIS AND PATIENT MANAGEMENT DECISIONS. PATIENT MANAGEMENT SHOULD FOLLOW CURRENT CDC 9 of 17 GUIDELINES. THE KRISTEN SARS ANTIGEN MAYNOR DOES Narrative INFLUENZA VIRUS RAPID A/B Final BINA: 04/01/2025 04:15:00 EDT MsgRcvd: 04/01/2025 04:55 EDT Lab Test Result Reference Status Received Comments NEGATIVE 04/01/2025 INFLUENZA A Final [NEGATIVE 04:55 EDT NEGATIVE 04/01/2025 INFLUENZA B Final [NEGATIVE 04:55 EDT INTERNAL 04/01/2025 PASS Final NEG QC 04:55 EDT INTERNAL 04/01/2025 PASS Final POS QC 04:55 EDT EXTERNAL QC 04/01/2025 YES Final DONE? 04:55 EDT 10 of 17 Narrative Lab Test Result Reference Status Received Comments A NEGATIVE TEST RESULT DOES NOT EXCLUDE INFECTION WITH INFLUENZA A OR B. THEREFORE, THE RESULTS OBTAINED FROM THIS FLU TEST SHOULD BE USED IN CONJUCTION WITH CLINICAL FINDINGS TO MAKE AN ACCURATE DIAGNOSIS. A POSITIVE RESULT DOES NOT RULE OUT CO-INFECTIONS WITH OTHER PATHOGENS OR IDENTIFY ANY SPECIFIC INFLUENZA A VIRUS 04/01/2025 SEND TO IC? NO Final SUBTYPE.CO-INFECTION 04:55 EDT WITH INFLUENZA A AND B IS RARE. IT IS RECOMMENDED THAT "DUAL POSITIVE" RESULTS BE CONFIRMED BY VIRAL CULTURE OR AN FDA-CLEARED INFLUENZA A AND B MOLECULAR ASSAY. INDIVIDUALS WHO HAVE 11 of 17 RECEIVED NASALLY ADMINISTERED INFLUENZA Narrative Lab Test Result Reference Status Received Comments RESULT 04/01/2025 NO Final CRITICAL? 04:55 EDT LIPASE Final BINA: 04/01/2025 04:15:00 EDT MsgRcvd: 04/01/2025 04:55 EDT Lab Test Result Reference Status Received Comments *PLEASE NOTE THAT RANGES FOR LIPASE HAVE CHANGED OF 10/31/23 DUE TO 169.0 U/L AN ASSAY 04/01/2025 LIPASE Above high 15.0 - 78.0 Final UPDATE BY THE 04:55 EDT normal ELECTRONICS ENGINEERING TECHNOLOGIST.THE NEW ASSAY RANGE IS 6-250 U/L, WITH A REFERENCE RANGE OF 16-77 U/L. TROPONIN Final BINA: 04/01/2025 04:15:00 EDT MsgRcvd: 04/01/2025 04:54 EDT Lab Test Result Reference Status Received Comments 04/01/2025 04:54 HS TROPONIN 4.1 pg/mL 0.0 - 51.4 Final EDT LACTATE Final BINA: 04/01/2025 04:15:00 EDT MsgRcvd: 04/01/2025 04:58 EDT Lab Test Result Reference Status Received Comments 12 of 17 Narrative Lab Test Result Reference Status Received Comments 04/01/2025 04:58 LACTATE 1.7 mmol/L 0.4 - 2.0 Final EDT SERUM QUAL Final BINA: 04/01/2025 04:15:00 EDT MsgRcvd: 04/01/2025 05:00 EDT Lab Test Result Reference Status Received Comments 04/01/2025 05:00 NEGATIVE NEGATIVE Final SER EDT 04/01/2025 05:00 INTERNAL QC PASS Final EDT EXTERNAL QC 04/01/2025 05:00 YES Final DONE? EDT URINALYSIS Final BINA: 04/01/2025 06:40:00 EDT MsgRcvd: 04/01/2025 07:20 EDT Lab Test Result Reference Status Received Comments 04/01/2025 07:20 URINALYSIS Final URINALYSIS EDT 04/01/2025 07:20 Specimen Type R New Order EDT NORMAL: 04/01/2025 07:20 Color yellow Final YELLOW EDT NORMAL: 04/01/2025 07:20 Clarity clear Final CLEAR EDT NORMAL: 04/01/2025 07:20 ph 6.5 Final 5.0-8.0 EDT 13 of 17 Narrative Lab Test Result Reference Status Received Comments 15 NORMAL: 04/01/2025 07:20 Protein Final Abnormal NEGATIVE EDT NORMAL: 04/01/2025 07:20 Glucose NORM Final NORMAL EDT NORMAL: 04/01/2025 07:20 Ketone NEG Final NEGATIVE EDT NORMAL: 04/01/2025 07:20 Bilirubin NEG Final NEGATIVE EDT 10 NORMAL: 04/01/2025 07:20 Blood Final Abnormal NEGATIVE EDT NORMAL: 04/01/2025 07:20 Urobilinog NORM Final NORMAL EDT NORMAL: 04/01/2025 07:20 Sp Stem 1.015 Final 1.010-1.030 EDT NORMAL: 04/01/2025 07:20 Nitrite NEG Final NEGATIVE EDT 25 NORMAL: 04/01/2025 07:20 Leukocytes Final Abnormal NEGATIVE EDT 04/01/2025 07:20 Microscopic SEE BELOW Final MICROSCOPIC EDT 04/01/2025 07:20 Wbc 1-5 0-5/hpf Final EDT 04/01/2025 07:20 Rbc NONE 0-3/hpf Final EDT 04/01/2025 07:20 Casts NONE Final EDT 14 of 17 Narrative Lab Test Result Reference Status Received Comments 04/01/2025 07:20 Crystals NONE Final EDT 04/01/2025 07:20 Amorphous NONE Final EDT 04/01/2025 07:20 Bacteria NONE Final EDT 04/01/2025 07:20 Epi Cells OCC Final EDT 04/01/2025 07:20 Mucous NONE Final EDT 04/01/2025 07:20 Yeast NONE Final EDT PROGRESS AND PROCEDURES MEDICAL DECISION MAKING: Ordered tests include complete blood count, chemistries, a beta-HCG, liver function tests, cardiac enzymes, a serum lipase, urinalysis, lactate and viral panel. The patient has been stable. IV fluids and antiemetics have been given. (34-year-old white female complaining of nausea vomiting this started yesterday Afternoon. She states it stopped for a period of time but then she woke up with a panic attack and felt cold. She started to vomit again. She also had a few bouts of diarrhea. She saw both of her doctors 2 days ago on Friday and she felt fine. Dr. Sanders her urologist and Dr. Pace her palliative care physician. Patient states she presents here today because she can not keep any fluids down. She could not keep her Zofran down due to the vomiting. Patient is alert oriented x3. Pleasant appears no acute distress. She is pleasant cooperative. Makes eye contact. Speaks in full sentences. HEENT; pupils are equal and react to light. Red reflex intact bilaterally. No conjunctival injection. Nose exhibits no rhinorrhea or epistaxis. Mouth; mucous membranes are mildly dry. No pharyngeal erythema. Neck is supple trachea midline. No JVD or lymphadenopathy. No posterior cervical tenderness. No nuchal rigidity. Lungs are clear to auscultation bilaterally. No adventitious sounds noted. No accessory muscle use noted. CV; heart rate and rhythm is regular. No murmur noted. Abdomen is soft nontender with mildly hyperactive bowel sounds x4 quadrants. Wheel guarding or rigidity. Extremities; no edema or cyanosis. Peripheral pulses are intact. No motor sensory deficits noted. Back does exhibit a left left nephrostomy tube. The site is intact without erythema or drainage.). 15 of 17 Narrative Disposition: Condition: good. Disposition Decision Time: 05:51 04/01/2025. Patient discharged. Discharged in good and improved condition. Discharge decision based on the following: patient's condition is stable; patient's condition is improved; patient is ambulatory; patient drinking fluids; patient's exam is stable; patient's exam is improved; minimally abnormal test results; stable condition on multiple repeat evaluations; social support is adequate; transportation is available; follow-up is available. CLINICAL IMPRESSION Vomiting with nausea. Diarrhea DISCHARGE INSTRUCTIONS Drink plenty of fluids. Warnings: GENERAL WARNINGS: Return or contact your physician immediately if your condition worsens or changes unexpectedly, if not improving as expected, or if other problems arise. Prescription Medications: ondansetron 4 mg disintegrating tablet: Take 1 tablet on tongue every eight hours for nausea/vomiting for 5 days, dispense 15 tablet. Refills 0. Pharmacy: [facility] [employer]. - [address] [place] [address]. Follow-up: Follow up with doctor in three days. Call for an appointment. Summary of care provided to patient and follow-up provider. [facility] pace [place]. Understanding of the discharge instructions verbalized by patient and family. (Electronically signed by Gonzalez Pineda D.O. 04/01/25 22:46:33 EDT) Disposition History: Disposition Decision Time: 05:51 04/01/2025. Disposition changed to Discharge. -- 05:51 04/01/2025 Gonzalez Pineda D.O. Disposition Decision Time: 05:51 04/01/2025. Disposition changed to Discharge to Home. Departure Time: 07:04 04/01/2025. -- 07:09 04/01/2025 Louis Darden R.N. Narrative Generated by [facility] 17 of ED VISIT SUMMARY Observed: 04/01/2025 3:55 AM Status: F Source: [facility] Visit Overview Visit Overview [address] [place] [address] [phone] 04/01/2025 Patient: TOR BERMAN Sex: Female : 1990 Age: 34y 04/01/2025 10:46 PM EDT ED Arrival:03:55 04/01/2025 EDT Status: Recent Travel:no Language:eng Adv Directive:No Isolation Status: Ethnicity:N Fall Risk:no risk Infectious Disease Exposure:no Measurements:5'5" / 165.1 Self-Harm Status:risk Sepsis Screen:negative cm 115.0 lb / 52.2 kg Chief Complaint:ABDOMINAL PAIN, DIARRHEA, NAUSEA, VOMITING, (Pace), and (X 24 hours) ALLERGIES Haldol Penicillins HOME MEDICATIONS lexapro: 20 mg once a day . Lorazepam Intensol 2 mg/mL oral concentrate: 1 mg three times a day . oxycodone 10 mg tablet: 10 mg every 6 hours . zofran: 4 mg every 6 hours . 1 3 Visit Overview PAST MEDICAL HISTORY / PROBLEMS Anxiety disorder Cancer. (stage 3 cervicle. Currently in remission) Depression Renal Failure. (Left kidney only) See nurses notes PAST SURGICAL HISTORY nephrostomy tube SOCIAL HISTORY Smoking status: Yes Alcohol use: No Drug use: Yes ED COURSE MEDICATIONS GIVEN IN EMERGENCY DEPARTMENT 04:16 04/01/25 Ondansetron IVP 4 mg over 1 minute(s) 04:16 04/01/25 IV NS 0.9 % 1000 mL 999 mL/hr over 1 hour(s) 05:11 04/01/25 KetorOLAC (Toradol) IVP 15 mg 05:53 04/01/25 HYDROmorphone (Dilaudid) IVP 0.5 mg IV SITE INFORMATION INTAKE OUTPUT REASSESMENT (most recent) 06:42 04/01/25. The patient reports no complaints and the patient is calm and resting quietly. ( urinalysis obtained, pt has been up to bathroom to provide voided spec. tolerating po fluids w/out vomiting.). Patient waiting for lab results. VITAL SIGNS First Vitals Last Vitals 2 of 3 Visit Overview First Vitals Last Vitals Temp 04:03 04/01/25 97.6 F Temp 07:04 04/01/25 BP 04:03 04/01/25 158/112 BP 07:04 04/01/25 HR 04:03 04/01/25 63 HR 07:04 04/01/25 RR 04:03 04/01/25 20 RR 07:04 04/01/25 16 O2 Sat 04:03 04/01/25 98% RA O2 Sat 07:04 04/01/25 Pain 04:03 04/01/25 7 Pain 07:04 04/01/25 4 ETCO2 04:03 04/01/25 ETCO2 07:04 04/01/25 GCS 04:03 04/01/25 GCS 07:04 04/01/25 RTS 04:03 04/01/25 RTS 07:04 04/01/25 PROCEDURES NURSING INTERVENTIONS LABS / STUDIES LABS / STUDIES ORDERED CBC w Diff CMP EKG - ED Flu Swab (Influenzae AAg) HCG, Qual Serum Lactate, Serum Lipase Rapid COVID (SARS) ANTIGEN TEST Troponin-I Urinalysis CLINICAL IMPRESSION DIARRHEA VOMITING WITH NAUSEA 3 of 3 ED ORDER SHEET (CPOE ONLY) Observed: 3:55 AM Status: F Source: [facility] Order Sheet Order Sheet [facility] [address] [place] [address] [phone] 04/01/2025 [id number] Sex: Female : 1990 Age: 34y MEASUREMENTS: Wt: 52.2 kg, Ht/Aden: 65.0 in, BMI: 19.14 ALLERGIES: Haldol, Penicillins MEDICATION/IV/DRIP/FLUID ORDERS Order Description Priority Entered Acknowledged Completed IV NS 0.9 %1000 mL at 999 04:05 04/01/2025 04:07 04:17 mL/hr (NOW x1) Gonzalez Pineda D.O. 04/01/2025 04/01/2025 Yohana Zapata R.NApril Ondansetron IVP4 mg (NOW x1) 04:05 04/01/2025 04:07 04:16 Gonzalez Pineda D.O. 04/01/2025 04/01/2025 Yohana Zapata R.NApril KetorOLAC (Toradol) IVP15 mg 05:06 04/01/2025 05:07 05:12 (NOW x1) Gonzalez Pineda D.O. 04/01/2025 04/01/2025 Louis Ahuja R.N. R.N. HYDROmorphone (Dilaudid) 05:47 04/01/2025 05:48 05:54 IVP0.5 mg (NOW x1, HIGH Gonzalez Pineda D.O. 04/01/2025 04/01/2025 ALERT MEDICATION) Louis Ahuja R.N. R.N. Reason for ordering with alerts: Clinical consideration given --05:47 04/01/2025 Gonzalez Pineda D.O. 1 of 3 Order Sheet LAB ORDERS Order Description Priority Entered Acknowledged Collected Completed CBC w Diff Stat Stat 04:05 04/01/2025 04:06 04/01/2025 04:15 04/01/2025 Kendra Stanford R.N. Anne Rutt, R.N. CMP Stat Stat 04:05 04/01/2025 04:06 04/01/2025 04:15 04/01/2025 Kendra Stanford R.N. Anne Rutt, R.N. Troponin-I Stat Stat 04:05 04/01/2025 04:06 04/01/2025 04:15 04/01/2025 Kendra Stanford R.N. Anne Rutt, R.N. EKG - ED Stat Stat 04:05 04/01/2025 04:06 04/01/2025 05:05 04/01/2025 Kendra Stanford R.N. Anne Rutt, R.N. Lactate, Serum Stat Stat 04:05 04/01/2025 04:06 04/01/2025 04:15 04/01/2025 Kendra Stanford R.N. Anne Rutt, R.N. Urinalysis Stat Stat 04:05 04/01/2025 04:06 04/01/2025 07:02 04/01/2025 Kendra Stanford R.N. Louis AdelsoYohana Lipase Stat Stat 04:06 04/01/2025 04:06 04/01/2025 04:15 04/01/2025 Kendra Stanford R.N. Anne Rutt, R.N. HCG, Qual Serum Stat Stat 04:06 04/01/2025 04:06 04/01/2025 04:15 04/01/2025 Kendra Stanford R.N. Anne Rutt, R.N. Flu Swab (Influenzae Stat 04:11 04/01/2025 04:14 04/01/2025 04:15 04/01/2025 AAg) Stat Kendra Stanford R.N. Anne Rutt, R.N. Rapid COVID (SARS) Stat 04:11 04/01/2025 04:14 04/01/2025 04:15 04/01/2025 2 of 3 Order Sheet ANTIGEN TEST Stat Kendra Stanford R.N. Anne Rutt, RAprilNApril DIAGNOSTIC STUDY ORDERS Order Description Priority Entered Acknowledged Completed STAFF ORDERS Order Description Priority Entered Acknowledged Collected Completed Vital Signs every 30 04:05 04/01/2025 04:06 04/01/2025 04:07 04/01/2025 minutes Kendra Stanford R.N. Anne Rutt, R.N. On Site Construction Superintendent 04:05 04/01/2025 04:06 04/01/2025 04:15 04/01/2025 Kendra Stanford R.N. Anne Rutt, R.N. Oxygen titrate to 92% 04:05 04/01/2025 04:06 04/01/2025 04:08 04/01/2025 Kendra Stanford R.N. Anne Rutt, R.N. [Electronically signed by Gonzalez Pineda D.O. (04/01/2025 22:46 EDT)] 3 of 3 URINE CULTURE [CCL] Observed: 03/23/2025 8:50 AM Status: F Source: [facility] URCUL See Results Below See Below CULTURE, URINE MIXED MICROBIOTA INCLUDING 4 DIFFERENT COLONY TYPES, AND NO ONE TYPE >=100,000 CFU/ml Mixed microbiota including 4 different colony types, and no one SOURCE: Urine, Nephrostomy [facility] [address] [place] [address] Joao Alvarenga III, M.D. [id number] SEND TO IC NO Performed By: #### [id number] ## ## [facility],[address] [place] [address] URINALYSIS Collected: 8:50 AM Status: F Source: [facility] TYPE CODE TESTS RESULT OUT OF RANGE REFERENCE UNITS LAB URINALYSIS(ISAIAH [place]) URINALYSIS Result Comment: URINALYSIS LAB Specimen Type(LOINC) Specimen Type R LAB Color(LOINC) Color yellow NORMAL: YELLOW LAB Clarity(LOINC) Clarity sl.cloudy RAJIV L: CLEAR LAB ph(LOINC) ph 8 NORMAL: 5.0-8.0 LAB Protein(LOINC) Protein 500 Abnormal RAJIV L: NEGATIVE LAB Glucose(LOINC) Glucose NORM RAJIV L: NORMAL LAB Ketone(LOINC) Ketone NEG NORMAL : NEGATIVE LAB Bilirubin(LOIN C) Bilirubin NEG NORMAL: NEGATIVE LAB Blood(LOINC) Blood 250 Abnormal NORMAL: NEGATIVE LAB Urobilinog(ISAIA[facility] NC) Urobilinog NORM NORMAL: NORMAL LAB Sp Stem(LOINC) Sp Stem 1.015 NORMAL: 1.010-1.030 LAB Nitrite(LOINC) Nitrite POS RAJIV L: NEGATIVE LAB Leukocytes(ISAIAH NC) Leukocytes 500 Abnormal NORMAL: NEGATIVE LAB Microscopic(LO INC) Microscopic SEE BELOW Result Comment: MICROSCOPIC LAB Wbc(LOINC) Wbc 26-50 0-5/hpf LAB Rbc(LOINC) Rbc 15-20 0-3/hpf LAB Casts(LOINC) Casts NONE LAB Crystals(LOINC ) Crystals SEE BELOW LAB Triple Phos(LOINC) Triple Phos 1+ NORMAL: NONE LAB Amorphous(LOIN C) Amorphous NONE LAB Bacteria(LOINC ) Bacteria 3+ LAB Epi Cells(LOINC) Epi Cells NONE LAB Mucous(LOINC) Mucous NONE LAB Yeast(LOINC) Yeast NONE Performed By: #### [id number] ## ## [place] [id number] C-REACTIVE PROTEIN Collected: 5 6:54 AM Status: F Source: [facility] TYPE CODE TESTS RESULT OUT OF RANGE REFERENCE UNITS LAB CRP(LOINC) CRP 0.15 0.00 - 0.90 mg/dl Performed By: #### [id number] ## ## [place] [id number] CBC + DIFF Collected: 5 6:54 AM Status: F Source: [facility] TYPE CODE TESTS RESULT OUT OF RANGE REFERENCE UNITS LAB CBC + DIFF(LOINC) CBC + DIFF Result Comment: CBC-COMPLETE BLOOD COUNT LAB WBC(LOINC) WBC 15.0 High 4.5 - 10.8 x 10EE3/UL LAB RBC(LOINC) RBC 4.59 4.10 - 5.30 x 10EE6/UL LAB HEMOGLOBIN([facility] [place]) HEMOGLOBIN 15.4 12.0 - 16.0 g/dl LAB HEMATOCRIT([facility] NC) HEMATOCRIT 44.3 34.0 - 46.0 % LAB MCV(LOINC) MCV 97 80 - 99 fl LAB MCH(LOINC) MCH 34 High 27 - 33 pg LAB MCHC(LOINC) MCHC 35 32 - 36 X10 3 LAB RDW/CV(LOINC) RDW/CV 13.8 12.0 - 15.6 % LAB PLATELET(LOINC ) PLATELET 512 High 150 - 450 x10EE3/UL LAB MPV(LOINC) MPV 7.8 6.6 - 10.5 fl Result Comment: AUTOMATED DI FFERENTIAL LAB NEUT %(LOINC) NEUT % 53.4 46.0 - 76.0 % LAB LYMPH %(LOINC) LYMPH % 34.4 20.0 - 45.0 % LAB MONOS %(LOINC) MONOS % 9.2 0.0 - 10.0 % LAB EO %(LOINC) EO % 2.6 0.0 - 7.0 % LAB BASO %(LOINC) BASO % 0.5 0.0 - 2.0 % LAB Lymph #(LOINC) Lymph # 5.14 High 0.80 - 2.80 x10EE 3/UL LAB Neut #(LOINC) Neut # 7.98 High 1.50 - 7.10 x10EE3 /UL LAB Green #(LOINC) Green # 1.37 High 0.20 - 1.00 x10EE3 /UL LAB EO #(LOINC) EO # 0.39 0.00 - 0.50 x10EE3/U L LAB Baso #(LOINC) Baso # 0.07 0.00 - 0.10 x10EE3 /UL LAB MANUAL DIFF(LOINC) MANUAL DIFF SEE BELOW LAB SEGS(LOINC) SEGS 50 46 - 76 % LAB LYMPH(LOINC) LYMPH 42 20 - 45 % LAB MONOS(LOINC) MONOS 8 0 - 10 % LAB CELL COUNT(LOINC) CELL COUNT 100 LAB MORPHOLOGY([facility]IA[facility] NC) MORPHOLOGY SEE BELOW LAB PLT EST(LOINC) PLT EST INCREASED LAB Other(LOINC) Other RBC MORPH NORMAL Performed By: #### [id number] ## ## [facility],[address] [place] [id number] CMP WITH EGFR Collected: 5 6:54 AM Status: F Source: [facility] TYPE CODE TESTS RESULT OUT OF RANGE REFERENCE UNITS LAB CMP with eGFR(LOINC) CMP with eGFR Result Comment: COMPREHENSIV E METABOLIC PANEL LAB SODIUM(LOINC) SODIUM 139 136 - 145 mmol/l LAB POTASSIUM(LOIN C) POTASSIUM 3.3 Low 3.5 - 5.1 mmol/L LAB CHLORIDE(LOINC ) CHLORIDE 103 98 - 107 mmol/L LAB CO2(LOINC) CO2 25.1 21.0 - 32.0 mmol/L LAB GLUCOSE(INC) GLUCOSE 106 74 - 106 mg/dl LAB BUN(LOINC) BUN 8 7 - 18 mg/dl LAB CREATININE([facility] [place]) CREATININE 1.06 High 0.55 - 1.02 mg/dl LAB AST/SGOT(INC ) AST/SGOT 17 13 - 39 U/L LAB ALK PHOS([facility]) ALK PHOS 88 46 - 116 U/L LAB CALCIUM(INC) CALCIUM 9.3 8.5 - 10.1 mg/dl LAB TOTAL PROTEIN([facility]) TOTAL PROTEIN 7.6 6.4 - 8.2 g/dl LAB ALBUMIN([facility]) ALBUMIN 4.0 3.4 - 5.0 g/dL LAB GLOBULIN(INC ) GLOBULIN 3.6 1.5 - 3.8 G/DL LAB A/G RATIO([facility]) A/G RATIO 1.1 0.9 - 1.6 LAB TOTAL BILI([facility]) TOTAL BILI 0.4 0.2 - 1.0 mg/dl LAB B/C RATIO(INC) B/C RATIO 8 0 - 30 ratio LAB ALT/SGPT([facility] ) ALT/SGPT 14 Low 16 - 63 U/L LAB ANION GAP([facility]) ANION GAP 14 10 - 20 mmol/L LAB AGE(INC) AGE 34 years LAB eGFR(LOINC) eGFR 59 Low 60 - 999 ML/MINUT E LAB eGFR(AA)(LOINC ) eGFR(AA) >60 60 - 999 ML/MINUT E Result Comment: ACCORDING TO THE NATIONAL KIDNEY DISEASE EDUCATION PROGRAM(NKDE), A NORMAL eGFR IS A VALUE GREATER THAN OR EQUAL TO 60 ML/MIN/1.73 SQ METERS. CHRONIC KIDNEY DISEASE: <60mL/MIN/1.73 SQ METERS KIDNEY FAILURE: <15mL/MIN/1.73 SQ METERS THIS TEST SHOULD ONLY BE USED FOR PATIENTS 18 YEARS OF AGE AND OLDER. Performed By: #### [id number] ## ## [facility],[address] [place] [id number] ED ORDER SHEET (CPOE ONLY) Observed: 6:45 AM Status: F Source: [facility] Order Sheet Order Sheet [address] [id number] 03/23/2025 Patient: TOR BERMAN Sex: Female : 1990 Age: 34y MEASUREMENTS: Wt: 55.8 kg, Ht/Aden: 66.0 in, BMI: 19.85 ALLERGIES: Haldol, Penicillins MEDICATION/IV/DRIP/FLUID ORDERS Order Description Priority Entered Acknowledged Completed IV NS 0.9 %1000 mL at 999 07:22 03/23/2025 07:22 07:47 mL/hr (NOW x1) Andrew Winter M.D. 03/23/2025 03/23/2025 Yohana Araya R.N. Zofran IVP4 mg (NOW x1) 07:22 03/23/2025 07:22 07:48 Andrew Winter M.D. 03/23/2025 03/23/2025 Yohana Araya R.N. HYDROmorphone (Dilaudid) 07:22 03/23/2025 07:22 07:48 IVP0.5 mg (NOW x1, HIGH Andrew Winter M.D. 03/23/2025 03/23/2025 ALERT MEDICATION) Yohana Araya R.N. Reason for ordering with alerts: Benefits outweigh risks --07:22 03/23/2025 Andrew Winter M.D. CefTRIAXone (Rocephin) IVPB 09:43 03/23/2025 09:45 09:54 2gm/50ml NS2 g diluted in Andrew Winter M.D. 03/23/2025 03/23/2025 sodium chloride IVPB 0.9 % Tadeo Borges Minibag+ 50 mL at 100 mL/hr Yohana Tejeda R.N. 1 of 3 Order Sheet (NOW x1) Reason for ordering with alerts: Does not appear to be a true allergy --09:43 03/23/2025 Andrew Winter M.D. HYDROmorphone (Dilaudid) 10:38 03/23/2025 10:41 10:45 IVP0.5 mg (NOW x1, HIGH Andrew Winter M.D. 03/23/2025 03/23/2025 ALERT MEDICATION) Yohana Araya R.N. Reason for ordering with alerts: Clinical consideration given --10:38 03/23/2025 Andrew Winter M.D. LAB ORDERS Order Description Priority Entered Acknowledged Collected Completed CBC w Diff Stat Stat 07:22 03/23/2025 07:22 03/23/2025 07:22 03/23/2025 Natali Sandhu R.N. [place], R.N. CMP Stat Stat 07:22 03/23/2025 07:22 03/23/2025 07:22 03/23/2025 Natali Sandhu R.N. [place], R.N. Urinalysis Stat Stat 07:22 03/23/2025 07:22 03/23/2025 09:03 03/23/2025 Natali Sandhu R.N. [place], R.N. CRP Stat Stat 07:22 03/23/2025 07:22 03/23/2025 07:22 03/23/2025 Natali Sandhu R.N. [place], R.N. Urine Culture [CCL] Stat Stat 09:43 03/23/2025 09:45 03/23/2025 09:45 03/23/2025 Natali Sandhu R.N. [place], R.N. Order Comments: 09:43 03/23/2025: (from nephrostomy tube) Andrew Winter M.D. DIAGNOSTIC STUDY ORDERS Order Description Priority Entered Acknowledged Completed STAFF ORDERS 2 of 3 Order Sheet Order Description Priority Entered Acknowledged Collected Completed [Electronically signed by Andrew Winter M.D. (03/23/2025 11:29 EDT)] 3 of 3 ED PHYSICIAN CLINICAL REPORT Observed: 03/23/2025 6:45 AM Status: F Source: [facility] Narrative Physician Clinical Narrative [place] [id number] [facility] [place] [address] [phone] 03/23/2025 06:45:00 Patient: TOR BERMAN Sex: Female : 1990 Age: 34y Disposition: Discharge to Home Disposition Decision Time: 10:55 03/23/2025 Departure Time: 11:20 03/23/2025 Measurements Wt: 55.8 kg, Ht/Aden: 66.0 in, BMI: 19.85 Initial Vital Sign Measured Time BP MAP HR RR O2Sat ETCO2 Temp Pain GCS RTS 06:53 03/23/2025 162/112 129 59 20 99% RA 97.2 F 8 Time Seen: 07:13 03/23/2025. Arrived- By private vehicle. Historian- patient. HISTORY OF PRESENT ILLNESS Chief Complaint: FLANK PAIN. It is described as located in the left abdomen and left lower quadrant and the left flank. This started today long history of ongoing and recurrent abdominal pain. She states yesterday she was generally doing well able to eat and drink well. Pain was manageable. However she had a migraine this morning woke up with little more abdominal pain but marked nausea and recurrent vomiting. Headache is slightly improved but then nausea and vomiting persists. No fever or chills. When seen in the E.D., severity described as 5 / 10. The patient has had nausea and vomiting. Similar symptoms previously. Patient has had similar symptoms many times. REVIEW OF SYSTEMS of 11 Narrative RESPIRATORY: No difficulty breathing or cough. CVS: No chest pain. THROAT: No sore throat. NEUROLOGICAL: The patient has had a headache. GI: No constipation or black stools. EYES: No blurred vision. PAST HISTORY See nurses notes. Patient has nephrostomy tubes in place. She states it is she is scheduled to see her urologist at the end of the month with a plan to have surgery to remove a kidney. Anxiety disorder Cancer: (stage 3 cervicle. Currently in remission) Depression Renal Failure: (Left kidney only) Surgeries: cervicle biopsy nephrostomy tube Medications: lexapro: 20 mg once a day . Lorazepam Intensol 2 mg/mL oral concentrate: 1 mg three times a day . oxycodone 10 mg tablet: 10 mg every 6 hours . zofran: 4 mg every 6 hours . Allergies: Haldol Penicillins SOCIAL HISTORY History of tobacco use. Regular vaping. No alcohol use. Marital status: currently single. ADDITIONAL NOTES The nursing notes have been reviewed. PHYSICAL EXAM 2 of 11 Narrative Vital Signs: Have been reviewed. Appearance: Alert. Oriented X3. No acute distress. Eyes: Pupils equal, round and reactive to light. Eyes normal inspection. ENT: Ears normal. Nose normal. Pharynx normal. Neck: Normal inspection. Neck supple. CVS: Normal heart rate and rhythm. Heart sounds normal. Pulses normal. Respiratory: No respiratory distress. Breath sounds normal. Chest nontender. Abdomen: Soft and nontender. Back: Normal inspection. Skin: Skin dry. Normal skin color. No rash. Slightly cool skin. Extremities: Extremities exhibit normal ROM. No lower extremity edema. Neuro: Oriented X 3. No motor deficit. No sensory deficit. LABS, X-RAYS, AND EKG Laboratory Tests: C-REACTIVE PROTEIN Final BINA: 03/23/2025 06:54:00 EDT MsgRcvd: 03/23/2025 08:01 EDT Lab Test Result Reference Status Received Comments 03/23/2025 08:01 CRP 0.15 mg/dl 0.00 - 0.90 Final EDT CBC + DIFF Final BINA: 03/23/2025 06:54:00 EDT MsgRcvd: 03/23/2025 08:26 EDT Lab Test Result Reference Status Received Comments 03/23/2025 08:26 CBC-COMPLETE CBC + DIFF Final EDT BLOOD COUNT 15.0 x 10/UL 03/23/2025 08:26 WBC 4.5 - 10.8 Final Above high normal EDT 03/23/2025 08:26 RBC 4.59 x 10/UL 4.10 - 5.30 Final EDT 3 of 11 Narrative Lab Test Result Reference Status Received Comments 03/23/2025 08:26 HEMOGLOBIN 15.4 g/dl 12.0 - 16.0 Final EDT 03/23/2025 08:26 HEMATOCRIT 44.3 % 34.0 - 46.0 Final EDT 03/23/2025 08:26 MCV 97 fl 80 - 99 Final EDT 34 pg 03/23/2025 08:26 MCH 27 - 33 Final Above high normal EDT 03/23/2025 08:26 MCHC 35 X10 3 32 - 36 Final EDT 03/23/2025 08:26 RDW/CV 13.8 % 12.0 - 15.6 Final EDT 512 x10/UL 03/23/2025 08:26 PLATELET 150 - 450 Final Above high normal EDT 03/23/2025 08:26 AUTOMATED MPV 7.8 fl 6.6 - 10.5 Final EDT DIFFERENTIAL 03/23/2025 08:26 NEUT % 53.4 % 46.0 - 76.0 Final EDT 03/23/2025 08:26 LYMPH % 34.4 % 20.0 - 45.0 Final EDT 03/23/2025 08:26 MONOS % 9.2 % 0.0 - 10.0 Final EDT 03/23/2025 08:26 EO % 2.6 % 0.0 - 7.0 Final EDT 03/23/2025 08:26 BASO % 0.5 % 0.0 - 2.0 Final EDT 4 of 11 Narrative Lab Test Result Reference Status Received Comments 5.14 x10/UL 03/23/2025 08:26 Lymph # 0.80 - 2.80 Final Above high normal EDT 7.98 x10/UL 03/23/2025 08:26 Neut # 1.50 - 7.10 Final Above high normal EDT 1.37 x10/UL 03/23/2025 08:26 Green # 0.20 - 1.00 Final Above high normal EDT 03/23/2025 08:26 EO # 0.39 x10/UL 0.00 - 0.50 Final EDT 03/23/2025 08:26 Baso # 0.07 x10/UL 0.00 - 0.10 Final EDT 03/23/2025 08:26 MANUAL DIFF SEE BELOW Final EDT 03/23/2025 08:26 SEGS 50 % 46 - 76 Final EDT 03/23/2025 08:26 LYMPH 42 % 20 - 45 Final EDT 03/23/2025 08:26 MONOS 8% 0 - 10 Final EDT 03/23/2025 08:26 CELL COUNT 100 Final EDT 03/23/2025 08:26 MORPHOLOGY SEE BELOW Final EDT 03/23/2025 08:26 PLT EST INCREASED Final EDT RBC MORPH 03/23/2025 08:26 Other Final NORMAL EDT 5 of 11 Narrative CMP with eGFR Final BINA: 03/23/2025 06:54:00 EDT MsgRcvd: 03/23/2025 08:01 EDT Lab Test Result Reference Status Received Comments COMPREHENSIVE 03/23/2025 CMP with eGFR Final METABOLIC 08:01 EDT PANEL 03/23/2025 SODIUM 139 mmol/l 136 - 145 Final 08:01 EDT 3.3 mmol/L 03/23/2025 POTASSIUM 3.5 - 5.1 Final Below low normal 08:01 EDT 03/23/2025 CHLORIDE 103 mmol/L 98 - 107 Final 08:01 EDT 03/23/2025 CO2 25.1 mmol/L 21.0 - 32.0 Final 08:01 EDT 03/23/2025 GLUCOSE 106 mg/dl 74 - 106 Final 08:01 EDT 03/23/2025 BUN 8 mg/dl 7 - 18 Final 08:01 EDT 1.06 mg/dl 03/23/2025 CREATININE Above high 0.55 - 1.02 Final 08:01 EDT normal 03/23/2025 AST/SGOT 17 U/L 13 - 39 Final 08:01 EDT 03/23/2025 ALK PHOS 88 U/L 46 - 116 Final 08:01 EDT 03/23/2025 CALCIUM 9.3 mg/dl 8.5 - 10.1 Final 08:01 EDT 6 of 11 Narrative Lab Test Result Reference Status Received Comments TOTAL 03/23/2025 7.6 g/dl 6.4 - 8.2 Final PROTEIN 08:01 EDT 03/23/2025 ALBUMIN 4.0 g/dL 3.4 - 5.0 Final 08:01 EDT 03/23/2025 GLOBULIN 3.6 G/DL 1.5 - 3.8 Final 08:01 EDT 03/23/2025 A/G RATIO 1.1 0.9 - 1.6 Final 08:01 EDT 03/23/2025 TOTAL BILI 0.4 mg/dl 0.2 - 1.0 Final 08:01 EDT 03/23/2025 B/C RATIO 8 ratio 0 - 30 Final 08:01 EDT 14 U/L 03/23/2025 ALT/SGPT 16 - 63 Final Below low normal 08:01 EDT 03/23/2025 ANION GAP 14 mmol/L 10 - 20 Final 08:01 EDT 03/23/2025 AGE 34 years Final 08:01 EDT 59 ML/MINUTE 03/23/2025 eGFR 60 - 999 Final Below low normal 08:01 EDT 7 of 11 Narrative Lab Test Result Reference Status Received Comments ACCORDING TO THE NATIONAL KIDNEY DISEASE EDUCATION PROGRAM(NKDE), A NORMAL eGFR IS A VALUE GREATER THAN OR EQUAL TO 60 ML/MIN/1.73 SQ METERS. 03/23/2025 CHRONIC KIDNEY eGFR(AA) >60 ML/MINUTE 60 - 999 Final 08:01 EDT DISEASE: <60mL/MIN/1.73 SQ METERS KIDNEY FAILURE: <15mL/MIN/1.73 SQ METERS THIS TEST SHOULD ONLY BE USED FOR PATIENTS 18 YEARS OF AGE AND OLDER. URINALYSIS Final BINA: 03/23/2025 08:50:00 EDT MsgRcvd: 03/23/2025 09:34 EDT Lab Test Result Reference Status Received Comments 03/23/2025 09:34 URINALYSIS Final URINALYSIS EDT 8 of 11 Narrative Lab Test Result Reference Status Received Comments 03/23/2025 09:34 Specimen Type R New Order EDT NORMAL: 03/23/2025 09:34 Color yellow Final YELLOW EDT NORMAL: 03/23/2025 09:34 Clarity [email or web address] Final CLEAR EDT NORMAL: 03/23/2025 09:34 ph 8 Final 5.0-8.0 EDT 500 NORMAL: 03/23/2025 09:34 Protein Final Abnormal NEGATIVE EDT NORMAL: 03/23/2025 09:34 Glucose NORM Final NORMAL EDT NORMAL: 03/23/2025 09:34 Ketone NEG Final NEGATIVE EDT NORMAL: 03/23/2025 09:34 Bilirubin NEG Final NEGATIVE EDT 250 NORMAL: 03/23/2025 09:34 Blood Final Abnormal NEGATIVE EDT NORMAL: 03/23/2025 09:34 Urobilinog NORM Final NORMAL EDT NORMAL: 03/23/2025 09:34 Sp Stem 1.015 Final 1.010-1.030 EDT NORMAL: 03/23/2025 09:34 Nitrite POS Final NEGATIVE EDT 500 NORMAL: 03/23/2025 09:34 Leukocytes Final Abnormal NEGATIVE EDT 9 of 11 Narrative Lab Test Result Reference Status Received Comments 03/23/2025 09:34 Microscopic SEE BELOW Final MICROSCOPIC EDT 03/23/2025 09:34 Wbc 26-50 0-5/hpf Final EDT 03/23/2025 09:34 Rbc 15-20 0-3/hpf Final EDT 03/23/2025 09:34 Casts NONE Final EDT 03/23/2025 09:34 Crystals SEE BELOW Final EDT 03/23/2025 09:34 Triple Phos 1+ NORMAL: NONE Final EDT 03/23/2025 09:34 Amorphous NONE Final EDT 03/23/2025 09:34 Bacteria 3+ Final EDT 03/23/2025 09:34 Epi Cells NONE Final EDT 03/23/2025 09:34 Mucous NONE Final EDT 03/23/2025 09:34 Yeast NONE Final EDT PROGRESS AND PROCEDURES MEDICAL DECISION MAKING: MEDICAL COMPLEXITY MODERATE. Pertinent clinical findings include the character and location of the pain and the vomiting. The findings also include the comorbidities. The presentation was not sudden or acute. There was no recent trauma. The exam revealed no rebound tenderness, mass or McBurney's point tenderness. The differential diagnosis includes, but is not limited to, 10 of 11 Narrative pyelonephritis and urinary tract infection. The diagnosis appears to be evident. Abnormal tests include the complete blood cell count and urinalysis. IV fluids have been given. Disposition: Condition: stable. Discharged in stable condition. Discharge decision based on the following: patient's condition is stable. CLINICAL IMPRESSION Chronic left lower quadrant abdominal pain. Acute urinary tract infection with pyelonephritis. Probable acute pyelonephritis. DISCHARGE INSTRUCTIONS Prescription Medications: Ceftin 250 mg twice a day for 10 days. Follow-up: Follow up with a urologist in about two days. Call for an appointment. (Electronically signed by Andrew Winter M.D. 03/23/25 11:29:10 EDT) Generated by [facility] 11 of 11 ED VITALS FLOW SHEET Observed: 6:45 AM Status: F Source: [facility] Vitals Vital Sign Flow Sheet [address] [address] [id number] 03/23/2025 Patient: TOR BERMAN Sex: Female : 1990 Age: 34y Measurements Wt: 55.8 kg, Ht/Aden: 66.0 in, BMI: 19.85 Measured Time BP MAP HR RR O2Sat ETCO2 Temp Pain GCS RTS 10:56 03/23/2025 121/81 89 54 10:26 03/23/2025 105/78 87 53 10:23 03/23/2025 8 09:55 03/23/2025 123/82 98 57 09:26 03/23/2025 108/80 89 49 07:26 03/23/2025 8 06:53 03/23/2025 162/112 129 59 20 99% RA 97.2 F 8 1 of 1 ED VISIT SUMMARY Observed: 03/23/2025 6:45 AM Status: F Source: [facility] Visit Overview Visit Overview [address] [address] [id number] 03/23/2025 Patient: TOR BERMAN Sex: Female : 1990 Age: 34y 03/23/2025 03:12 PM EDT ED Arrival:06:45 03/23/2025 EDT Status: Recent Travel:no Language:eng Adv Directive:No Isolation Status: Ethnicity:N Fall Risk:no risk Infectious Disease Exposure:no Measurements:5'6" / 167.6 Self-Harm Status:risk Sepsis Screen:negative cm 123.0 lb / 55.8 kg Chief Complaint:NAUSEA, VOMITING, (2 hours), (Pace and Turk), and (Pt started with n/V 2 hrs proir to arrival) ALLERGIES Haldol Penicillins HOME MEDICATIONS lexapro: 20 mg once a day . Lorazepam Intensol 2 mg/mL oral concentrate: 1 mg three times a day . oxycodone 10 mg tablet: 10 mg every 6 hours . zofran: 4 mg every 6 hours . 1 3 Visit Overview PAST MEDICAL HISTORY / PROBLEMS Anxiety disorder Cancer. (stage 3 cervicle. Currently in remission) Depression Renal Failure. (Left kidney only) See nurses notes PAST SURGICAL HISTORY nephrostomy tube SOCIAL HISTORY Smoking status: Unknown Alcohol use: No Drug use: No ED COURSE MEDICATIONS GIVEN IN EMERGENCY DEPARTMENT 07:28 03/23/25 IV NS 0.9 % 1000 mL 999 mL/hr 07:48 03/23/25 Zofran IVP 4 mg 07:48 03/23/25 HYDROmorphone (Dilaudid) IVP 0.5 mg CefTRIAXone (Rocephin) IVPB 2gm/50ml NS 2 g diluted in sodium chloride IVPB 0.9 09:54 03/23/25 % Minibag+ 50 mL 100 mL/hr 10:44 03/23/25 HYDROmorphone (Dilaudid) IVP 0.5 mg IV SITE INFORMATION INTAKE OUTPUT REASSESMENT (most recent) 07:26 03/23/25. Ambulatory to room. ( headache with nausea and vomiting.). GENERAL / NEURO / PSYCH: Alert. Oriented X 4. Appears in no acute distress. HEENT: Mucous membranes are pink. RESPIRATORY: Respirations not labored. Breath sounds within normal limits. CVS: Normal sinus rhythm noted. Capillary refill less than 2 seconds. GI / : The patient has had nausea. Abdomen soft and nontender. Bowel sounds within normal limits. SKIN: Skin is warm and dry. 2 of 3 Visit Overview VITAL SIGNS First Vitals Last Vitals Temp 06:53 03/23/25 97.2 F Temp 10:56 03/23/25 BP 06:53 03/23/25 162/112 BP 10:56 03/23/25 121/81 HR 06:53 03/23/25 59 HR 10:56 03/23/25 54 RR 06:53 03/23/25 20 RR 10:56 03/23/25 O2 Sat 06:53 03/23/25 99% RA O2 Sat 10:56 03/23/25 Pain 06:53 03/23/25 8 Pain 10:56 03/23/25 ETCO2 06:53 03/23/25 ETCO2 10:56 03/23/25 GCS 06:53 03/23/25 GCS 10:56 03/23/25 RTS 06:53 03/23/25 RTS 10:56 03/23/25 PROCEDURES NURSING INTERVENTIONS LABS / STUDIES LABS / STUDIES ORDERED CBC w Diff CMP CRP Urinalysis Urine Culture [CCL] CLINICAL IMPRESSION ACUTE URINARY TRACT INFECTION WITH PYELONEPHRITIS CHRONIC LEFT LOWER QUADRANT ABDOMINAL PAIN PROBABLE ACUTE PYELONEPHRITIS 3 of 3 ED NURSES CLINICAL NOTE Observed: 2024 6:45 AM Status: F Source: [facility] Nurse Narrative Nurse Clinical Narrative [facility] [address] [place] [address] [id number] 03/23/2025 06:45:00 Patient: TOR BERMAN Sex: Female : 1990 Age: 34y Disposition: Discharge to Home Disposition Decision Time: 10:55 03/23/2025 Departure Time: 11:20 03/23/2025 TRIAGE Arrived by private vehicle. Historian: (patient). Primary physician (Angel). Triage time: 06:50 03/23/2025. Acuity: LEVEL 3. Chief Complaint: NAUSEA and VOMITING. Alert. This started just prior to arrival. ( Pt started with n/V 2 hrs proir to arrival). The patient has had nausea and vomiting. The patient has had mild, constant abdominal pain (2 hours). The pain is described as generalized and located in the LUQ, left side of the abdomen and LLQ. The pain is associated with nausea and vomiting. No diarrhea. SEPSIS SCREEN: NEGATIVE. SIRS criteria negative. No possible sources of infection. -- 07:00 03/23/25 EDT Sandra Chavez R.N. 06:53 03/23/25. BP: 162/112 (small cuff) taken on right arm, while sitting. MAP: 129. HR: 59. Regular and normal rate. RR: 20. Regular and unlabored. O2 saturation: 99% on room air. Temperature: 97.2 F (oral). Pain level now 8/10. Describes the pain as sharp. Constant. -- 06:58 03/23/25 EDT Sandra Chavez R.N. Measurements: 07:00 03/23/25 Wt: 55.8 kg, Ht/Aden: 66.0 in, BMI: 19.85 -- 07:00 03/23/25 EDT Sandra Chavez R.N. 1 of 4 Nurse Narrative Medications: zofran: 4 mg every 6 hours . -- 06:53 03/23/25 EDT Sandra Chavez R.N. lexapro: 20 mg once a day . -- 06:53 03/23/25 EDT Sandra Chavez R.N. Lorazepam Intensol 2 mg/mL oral concentrate: 1 mg three times a day . -- 06:53 03/23/25 LILIANAT Sandra Chavez R.N. oxycodone 10 mg tablet: 10 mg every 6 hours . -- 06:53 03/23/25 LILIANAT aSndra Chavez R.N. Allergies: Penicillins -- 06:52 03/23/25 LILIANAT Sandra Chavez R.N. Haldol -- 06:52 03/23/25 LILIANAT Sandra Chavez R.N. Problems: Cancer. (stage 3 cervicle. Currently in remission) -- 06:52 03/23/25 LILIANAT Sandra Chavez R.N. Renal Failure. (Left kidney only) -- 06:52 03/23/25 LILIANAT Sandra Chavez R.N. Depression -- 06:52 03/23/25 LILIANAT Sandra Chavez R.N. Anxiety disorder -- 06:52 03/23/25 LILIANAT Sandra Chavez R.N. Surgeries: nephrostomy tube -- 06:52 03/23/25 LILIANAT Sandra Chavez R.N. cervicle biopsy -- 06:52 03/23/25 LILIANAT Sandra Chavez R.N. History 06:50 03/23/25. SOCIAL HX: Regular vaping. Patient refuses to answer vaping questions. No alcohol use or drug use. The patient has not traveled outside the [place] Infectious disease exposure: No infectious disease exposure. ABUSE ASSESSMENT: The patient answered "yes" to the question(s) "Do you feel safe in your home?" and "no" to the question(s) "Are you afraid to go home?". SELF HARM ASSESSMENT: Self harm assessment was performed. The patient answered no to the question(s) "Have you recently felt down, depressed, or hopeless?" and "Do you have thoughts of harming or killing yourself?". 2 of 4 Nurse Narrative FALL RISK ASSESSMENT: Fall risk assessment completed. No risk factors identified. -- 07:00 03/23/25 EDT Sandra Chavez R.N. Interventions 06:50 03/23/25. Identification band and allergy band on patient. Advanced care plan discussed with patient. Patient does not have advanced directive. -- 07:00 03/23/25 EDT Sandra Chavez R.N. PHYSICAL ASSESSMENT 07:26 03/23/25. Ambulatory to room. ( headache with nausea and vomiting.). GENERAL / NEURO / PSYCH: Alert. Oriented X 4. Appears in no acute distress. HEENT: Mucous membranes are pink. RESPIRATORY: Respirations not labored. Breath sounds within normal limits. CVS: Normal sinus rhythm noted. Capillary refill less than 2 seconds. GI / : The patient has had nausea. Abdomen soft and nontender. Bowel sounds within normal limits. SKIN: Skin is warm and dry. -- 07:51 03/23/25 LILIANAT Tadeo Tejeda R.N. 07:26 03/23/25. Pain level now 8/10. -- 07:51 03/23/25 LILIANAT Tadeo Tejeda R.N. NURSING PROGRESS NOTES 07:03/23/25. Rounding: Pain: assessed pain level. Proximity of possessions / care items: call light within easy reach. Set expectations: advised patient of rounding protocol timing. Two patient identifiers checked. Call light placed in reach. Side rails up x 2. Bed placed in lowest position. Brakes of bed on. -- 07:01 03/23/25 GINNY Chavez R.N. 07:22 03/23/25. Site #1 started via IV in the right antecubital space with a 20g angiocath with good blood return; 1 attempt. Blood drawn: rainbow set tube(s). Saline lock flushed with 5 mL saline. -- 07:47 03/23/25 LILIANAT Tadeo Tejeda R.N. 07:26 03/23/25. Monitoring of patient in place. Call light placed in reach. Side rails up x 2. Bed placed in lowest position. Brakes of bed on. -- 07:51 03/23/25 EDT Tadeo Tejeda R.N. 07:28 03/23/25. IV NS 0.9 % 1000 mL started in bag#1 1000 mL at 999 mL/hr via Site# 1. -- 07:47 03/23/25 EDT Tadeo Tejeda R.N. 07:48 03/23/25. Zofran IVP 4 mg given via Site# 1. IV patency established. IV site checked: no pain, redness, or swelling. IV flushed thoroughly pre-medication administration. IVP given by nurse. -- 07:48 03/23/25 T Tadeo Tejeda R.N. 07:48 03/23/25. HYDROmorphone (Dilaudid) IVP 0.5 mg given via Site# 1. Medication Wastage: 0.5 mg wasted. -- 07:48 03/23/25 T Tadeo Tejeda R.N. 09:54 03/23/25. CefTRIAXone (Rocephin) IVPB 2gm/50ml NS 2 g started at 100 mL/hr diluted in sodium chloride IVPB 0.9 % Minibag+ 50 mL via Site# 1. -- 09:54 03/23/25 T Tadeo Tejeda R.N. 3 of 4 Nurse Narrative 10:23 03/23/25. Pain level now 8/10. -- 10:48 03/23/25 T Tadeo Tejeda R.N. 10:44 03/23/25. HYDROmorphone (Dilaudid) IVP 0.5 mg given via Site# 1. Medication Wastage: 0.5 mg wasted. -- 10:45 03/23/25 T Tadeo Tejeda R.N. 10:45 03/23/25. Call light placed in reach. Side rails up x 2. Bed placed in lowest position. Brakes of bed on. -- 10:50 03/23/25 T Tadeo Tejeda R.N. 10:47 03/23/25. CefTRIAXone (Rocephin) IVPB 2gm/50ml NS: Medication Discontinued. IV completed upon discharge. Total amount infused: 50 mL. -- 10:47 03/23/25 EDT Tadeo Tejeda R.N. DISPOSITION / DISCHARGE 10:56 03/23/25. BP: 121/81 MAP: 89 mmHg. HR: 54 bpm. -- 12:07 03/23/25 EDT Tadeo Tejeda R.N. 11:10 03/23/25. IV NS 0.9 %: Medication Discontinued. bag #1 completed. Total amount infused: 1000 mL. IV patency established. IV site checked: no pain, redness, or swelling. IV flushed thoroughly post-medication administration. -- 12:06 03/23/25 EDT Tadeo Tejeda R.N. Departure time: 11:20 03/23/2025. Condition at departure: improved. No learning barriers present. Discharge instructions provided and reviewed with the patient. Reviewed warnings. Reviewed medication(s). Treatments reviewed. Reviewed referrals. Patient verbalized understanding. Written instructions provided in Palestinian. The patient was discharged by the physician. The patient was discharged home and accompanied by parent. The patient left ambulatory and via private vehicle. Parent driving. -- 11:20 03/23/25 EDT Tadeo Tejeda R.N. 11:20 03/23/25. Site #1 removed upon discharge. Catheter intact. Pressure dressing applied. -- 12:07 03/23/25 EDT Tadeo Tejeda R.N. (Electronically signed by Tadeo Tejeda R.N. 03/23/25 15:12:38 EDT) Generated by [facility] 4 of 4 ED SUPER BILL Observed: 03/23/2025 6:45 AM Status: F Source: [address] [place] [address] [phone] 03/23/2025 Patient: TOR BERMAN Sex: Female : 1990 Age: 34y Item Facility Professional Category Description Code Code Quantity Fee Total Nurse/E/M EMERGENCY 764424 1 $0.00 $0.00 DEPARTMENT VISIT HIGH/URGENT SEVERITY (10114-18) Nurse/IV/IM/Infusions Drip/IVPB initial 390428 1 $0.00 $0.00 (15309) Nurse/IV/IM/Infusions Hydration 341254 3 $0.00 $0.00 additional hour (40593) Nurse/IV/IM/Infusions IVP additional 840072 2 $0.00 $0.00 push (89161) Nurse/IV/IM/Infusions IVP same med 308550 1 $0.00 $0.00 (31 min apart) (60950) Grand Total $0.00 Providers Andrew Winter M.D. 1 of 2 [facility] Chief Complaint FLANK PAIN. Principal Diagnosis Chronic left lower quadrant abdominal pain. Acute urinary tract infection with pyelonephritis. Probable acute pyelonephritis. ICD-10 Codes R10.32: Left lower quadrant pain N10: Acute pyelonephritis N12: Tubulo-interstitial nephritis, not specified as acute or chronic 2 of 2 ED MED ADMINISTRATION DETAIL Observed: 0 03/23/2025 6:45 AM Status: F Source: [facility] Counter Top Maker Medication Administration Record [address] [address] [id number] 03/23/2025 Patient: TOR BERMAN Sex: Female : 1990 Age: 34y MEASUREMENTS: Wt: 55.8 kg, Ht/Aden: 66.0 in, BMI: 19.85 ALLERGIES: Haldol, Penicillins Medication Ordered Medication Administration Date/Time IV NS 0.9 % 1000 07:28 03/23 IV NS 0.9 % 1000 mL started in bag#1 1000 mL at Started mL at 999 mL/hr 999 mL/hr via Site# 1. - 07:47 Tadeo Tejeda R.N. 07:28 03/23/2025 (NOW x1) Tadeo Tejeda, 11:10 03/23 Medication Discontinued: bag #1 completed. Total R.N. amount infused: 1000 mL. IV patency established. IV site checked: Stopped no pain, redness, or swelling. IV flushed thoroughly post-medication 11:10 03/23/2025 administration. - 12:06 Yohana Stock R.N. Scanned Zofran IVP 4 mg 07:48 03/23 Zofran IVP 4 mg given via Site# 1. IV patency Given (NOW x1) established. IV site checked: no pain, redness, or swelling. IV 07:48 03/23/2025 flushed thoroughly pre-medication administration. IVP given by nurse Dayami. - 07:48 Tadeo Tejeda R.N. R.N. Scanned HYDROmorphone 07:48 03/23 HYDROmorphone (Dilaudid) IVP 0.5 mg given via Given (Dilaudid) IVP 0.5 Site# 1. Medication Wastage: 0.5 mg wasted. - 07:48 Tadeo 07:48 03/23/2025 mg (NOW x1, HIGH Nikhil R.N. Tadeo Tejeda, ALERT R.N. MEDICATION) Scanned 1 of 2 Counter Top Maker Medication Ordered Medication Administration Date/Time CefTRIAXone 09:54 03/23 CefTRIAXone (Rocephin) IVPB 2gm/50ml NS 2 g Started (Rocephin) IVPB started at 100 mL/hr diluted in sodium chloride IVPB 0.9 % 09:54 03/23/2025 2gm/50ml NS 2 g Minibag+ 50 mL via Site# 1. - 09:54 Yohana Stock, diluted in sodium R.N. chloride IVPB 0.9 % 10:47 03/23 Medication Discontinued: IV completed upon Stopped Minibag+ 50 mL at discharge. Total amount infused: 50 mL. - 10:47 Tadeo 10:47 03/23/2025 100 mL/hr (NOW x1) Yohana Tejeda R.N. Scanned HYDROmorphone 10:44 03/23 HYDROmorphone (Dilaudid) IVP 0.5 mg given via Given (Dilaudid) IVP 0.5 Site# 1. Medication Wastage: 0.5 mg wasted. - 10:45 Tadeo 10:44 03/23/2025 mg (NOW x1, HIGH Nikhil R.N. Tadeo Tejeda, ALERT R.N. MEDICATION) Scanned [address] ABD/PELVIS W/ IV CONTRAST ONLY Observ ed: 03/15/2025 5:42 PM Status: F Source: [facility] ORIGINAL EXAMINATION: CT OF THE ABDOMEN AND [...] percutaneous nephrostomy tube in place. Interpreted by: Efraín Tamayo Preliminary Report By: Efraín Tamayo Electronically signed By Efraín Tamayo Dictated Date: 03/15/2025 6:02:41 PM Prelim Date: 03/15/2025 6:11:20 PM Sign Date: 03/15/2025 6:11:20 PM Ordering Provider: ROD ARRIETA Collected: 03/15/2025 4:07 PM Status: F Source: [facility] TYPE CODE TESTS RESULT OUT OF RANGE REFERENCE UNITS LAB SPCUA(INC) UA Specimen Type Clean Catch LAB CLRUA(LOINC) UA Color Yellow LAB APPUA(LOINC) UA Appear Clear Clear LAB SGUA(LOINC) UA Spec Grav 1.020 1.006-1.029 LAB GLUA(LOINC) UA Glucose Negative Negative mg/dL LAB BILUA(LOINC) UA Bili Negative Neg-Trace LAB KETUA(LOINC) UA Ketones Trace Neg-Trace mg/dL LAB BLDUA(LOINC) UA Blood Small Abnormal Neg-Trace LAB PHUA(LOINC) UA pH 6.5 5.0 - 8.0 LAB PROUA(LOINC) UA Protein Trace Negative mg/dL LAB UROUA(LOINC) UA Urobilinogen 1.0 0.2-1.0 E.U ./dL LAB NITUA(LOINC) UA Nitrite Negative Negative LAB LEUUA(INC) UA Leuk Est Trace Negative Performed By: #### UA, UAMIC #### [place] [address] UAMIC Collected: 03/15/2025 4:07 PM Status: F Source: [facility] MAIN TYPE CODE TESTS RESULT OUT OF RANGE REFERENCE UNITS LAB RBCUA(LOINC) UA RBC 5-10 Abnormal 0-2 /hpf LAB WBCUA([facility]) UA WBC 0-2 0-5 /hpf LAB EPIUA([facility]) UA Squam Epithelial 3-5 0-20 /hpf LAB MUCUA(LOINC) UA Mucous 4+ /hpf LAB BACUA([facility]) UA Bacteria Trace Abnormal Negative /hpf Performed By: #### UA, UAMIC #### [place] [address] CBC Collected: 4:07 PM Status: F Source: [facility] MAIN TYPE CODE TESTS RESULT OUT OF RANGE REFERENCE UNITS LAB WBC(LOINC) WBC 8.7 4.5-10.8 10 3/mcL LAB RBCCT(LOINC) RBC 4.00 Low 4.10-5.30 10 6/mcL LAB HGB(LOINC) Hgb 12.6 12.0-16.0 G/dL LAB HCT(LOINC) Hct 38.6 34.0-46.0 % LAB MCV(LOINC) MCV 96.7 80.0-99.0 fL LAB MCH(LOINC) MCH 31.4 27.0-33.0 pg LAB MCHC(LOINC) MCHC 32.5 32.0-36.0 G/dL LAB RDW(LOINC) RDW 14.7 11.5-15.5 % LAB PLT(LOINC) Platelet 294 150-450 10 3/mcL LAB MPV(LOINC) MPV 7.3 6.6-10.5 fL Performed By: #### MDW, CMP, GFR, LAC, CBC, ADIFF, ANEU #### [place] [id number] .AUTO DIFF Collected: 03/15/2025 4:07 PM Status: F Source: [facility] MAIN TYPE CODE TESTS RESULT OUT OF RANGE REFERENCE UNITS LAB GREGORIA(LOINC) Neutrophil % 63.7 50.0-75.0 % LAB LYM(LOINC) Lymphocyte % 22.2 20.0-40.0 % LAB MON(LOINC) Monocyte % 11.4 2.0-13.0 % LAB EO(LOINC) Eosinophil % 2.0 0.0-6.0 % LAB BAS(LOINC) Basophil % 0.7 0.0-2.5 % LAB ABLYM(LOINC) Lymphocyte, Absolute 1.9 0.9-4.3 10 3/mcL LAB MIKEY(LOINC) Monocyte, Absolute 1.0 0.1-1.4 10 3/mcL LAB AEOS(LOINC) Eosinophil, Absolute 0.2 0.0-0.7 10 3/mcL LAB ABAS(LOINC) Basophil, Absolute 0.1 0.0-0.3 10 3/mcL Performed By: #### W, CMP, GFR, LAC, CBC, ADIFF, ANEU #### [address] [id number] .NEUABS Collected: 4:07 PM Status: F Source: [facility] MAIN TYPE CODE TESTS RESULT OUT OF RANGE REFERENCE UNITS LAB ANEU(LOINC) Neutrophil, Absolute 5.5 2.3-8.1 10 3/mcL Performed By: #### W, CMP, GFR, LAC, CBC, ADIFF, ANEU #### [address] [id number] .MDW Collected: 03/15/2025 4:07 PM Status: F Source: [facility] MAIN TYPE CODE TESTS RESULT OUT OF RANGE REFERENCE UNITS LAB MDW(LOINC) Monocyte Distribution Width 19.00 0.00-20.00 Result Comment: For ED adult patients suspected of sepsis, MDW<=20.0 does not rule out sepsis or risk of sepsis Performed By: #### MDW, CMP, GFR, LAC, CBC, ADIFF, ANEU #### [place] [address] CMP Collected: 03/15/2025 4:07 PM Status: F Source: [facility] MAIN TYPE CODE TESTS RESULT OUT OF RANGE REFERENCE UNITS LAB GLU(LOINC) Glucose Level 101 70-110 mg/dL LAB NA(LOINC) Sodium Level 138 136-145 mEq/L LAB K(LOINC) Potassium Level 3.8 3.5-5.0 mEq/L Result Comment: Specimen sli ghtly hemolyzed. LAB CL(LOINC) Chloride 107 98-110 mEq/L LAB CO2(LOINC) CO2 28 22-32 mEq/L LAB EBAL(LOINC) Electrolyte Balance 3.0 Low 4.0-15.0 mEq/L LAB BUN(LOINC) BUN 6.0 Low 8.0-22.0 mg/dL LAB CRE(LOINC) Creatinine Lvl (s) 0.80 0.50-1.20 mg/dL Result Comment: Testing perf ormed on [employer] Mobile analyzer using enzymatic creatinine methodology. LAB BC(LOINC) BUN/Creatinine Ratio 7.5 Low 10.0-22.0 ratio LAB CA(LOINC) Calcium Lvl 9.7 8.7-10.4 mg/dL LAB PROT(LOINC) Total Protein 7.3 5.7-8.2 G/dL LAB ALB(LOINC) Albumin Level 4.0 3.2-4.8 G/dL LAB GLB(LOINC) Globulin 3.3 2.5-4.2 G/dL LAB AG(LOINC) A/G Ratio 1.2 0.9-1.6 ratio LAB BILT(LOINC) Bili Total 0.30 0.20-1.20 mg/dL Result Comment: Use of this assay is not recommended for patients undergoing treatment with eltrombopag due to the potential for falsely elevated results. LAB AP(LOINC) Alk Phos 72 38-126 U/L LAB AST(LOINC) AST/SGOT 19 8-34 U/L LAB ALT(LOINC) ALT/SGPT 9 Low 10-49 U/L Performed By: #### YOUNG, CMP, GFR, LAC, CBC, ADIFF, ANEU #### [place] [address] .GFR Collected: 03/15/2025 4:07 PM Status: F Source: [facility] MAIN TYPE CODE TESTS RESULT OUT OF RANGE REFERENCE UNITS LAB eGFR(LOINC) Estimated Glomerular Filtration Rate 98 ml/min/1. 73sqm Result Comment: Stages of Chronic Kidney Disease [...] calculate the eGFR results. Performed By: #### YOUNG, CMP, GFR, LAC, CBC, ADIFF, ANEU #### [place] [address] LAC Collected: 03/15/2025 4:07 PM Status: F Source: [facility] TYPE CODE TESTS RESULT OUT OF RANGE REFERENCE UNITS LAB LAC(LOINC) Lactic Acid Lvl 1.3 0.5-2.2 mmol/L Performed By: #### YOUNG, CMP, GFR, LAC, CBC, ADIFF, ANEU #### [place] [address] CT RENAL Observed: 03/09/2025 3:38 PM Status: F Source: [facility] MAIN ORIGINAL EXAMINATION: CT RENAL 03/09/2025 3:54 pm [...] the resident's findings and interpretation. Interpreted by: Socoby Roman Preliminary Report By: Scooby Roman Electronically signed By Scooby Roman Dictated Date: 03/09/2025 4:00:57 PM Prelim Date: 03/09/2025 4:13:54 PM Sign Date: 03/09/2025 4:13:54 PM Ordering Provider: FER ARRIETA Collected: 03/09/2025 2:30 PM Status: F Source: [facility] MAIN TYPE CODE TESTS RESULT OUT OF RANGE REFERENCE UNITS LAB SPCUA(LOINC) UA Specimen Type Not Given LAB CLRUA(LOINC) UA Color Yellow LAB APPUA(LOINC) UA Appear Clear Clear LAB SGUA(LOINC) UA Spec Grav <=1.005 Abnormal 1.006-1.029 LAB GLUA(LOINC) UA Glucose Negative Negative mg/dL LAB BILUA(LOINC) UA Bili Negative Neg-Trace LAB KETUA(LOINC) UA Ketones Negative Neg-Trace mg/dL LAB BLDUA(LOINC) UA Blood Small Abnormal Neg-Trace LAB PHUA(LOINC) UA pH 7.5 5.0 - 8.0 LAB PROUA(LOINC) UA Protein Trace Negative mg/dL LAB UROUA(LOINC) UA Urobilinogen 0.2 0.2-1.0 E.U ./dL LAB NITUA(LOINC) UA Nitrite Negative Negative LAB LEUUA(LOINC) UA Leuk Est Moderate Abnormal Negative Performed By: #### UA, UAMIC #### [place] [address] UAMIC Collected: 03/09/2025 2:30 PM Status: F Source: [facility] MAIN TYPE CODE TESTS RESULT OUT OF RANGE REFERENCE UNITS LAB RBCUA(LOINC) UA RBC 3-5 Abnormal 0-2 /hpf LAB WBCUA(LOINC) UA WBC 3-5 0-5 /hpf LAB EPIUA(LOINC) UA Squam Epithelial Rare 0-20 /hpf LAB BACUA(LOINC) UA Bacteria Trace Abnormal Negative /hpf LAB CRBCU(LOINC) UA Crenated RBCs Rare Abnormal /hpf Performed By: #### UA, UAMIC #### [place] [address] XR CHEST 1 VIEW Observed: 03/09/2025 1:43 PM Status: F Source: [facility] MAIN ORIGINAL EXAMINATION: ONE XRAY VIEW OF THE [...] the resident's findings and interpretation. Interpreted by: Solo Trivedi MD Preliminary Report By: Gonzalez Méndez MD Electronically signed By Solo Trivedi MD Dictated Date: 03/09/2025 1:57:32 PM Prelim Date: 03/09/2025 2:07:59 PM Sign Date: 03/09/2025 2:07:59 PM Ordering Provider: FER RIZO CBC Collected: 1:09 PM Status: F Source: [facility] MAIN TYPE CODE TESTS RESULT OUT OF RANGE REFERENCE UNITS LAB WBC(LOINC) WBC 9.0 4.5-10.8 10 3/mcL LAB RBCCT(LOINC) RBC 4.50 4.10-5.30 10 6/mcL LAB HGB(LOINC) Hgb 14.6 12.0-16.0 G/dL LAB HCT(LOINC) Hct 43.5 34.0-46.0 % LAB MCV(LOINC) MCV 96.5 80.0-99.0 fL LAB MCH(LOINC) MCH 32.5 27.0-33.0 pg LAB MCHC(LOINC) MCHC 33.7 32.0-36.0 G/dL LAB RDW(LOINC) RDW 14.4 11.5-15.5 % LAB PLT(LOINC) Platelet 370 150-450 10 3/mcL LAB MPV(LOINC) MPV 7.4 6.6-10.5 fL Performed By: #### CBC, ADIF F, ANEU, MDW, LAC, LIP, CMP, GFR #### [place] [address] .AUTO DIFF Collected: 03/09/2025 1:09 PM Status: F Source: [facility] MAIN TYPE CODE TESTS RESULT OUT OF RANGE REFERENCE UNITS LAB GREGORIA(LOINC) Neutrophil % 65.5 50.0-75.0 % LAB LYM(LOINC) Lymphocyte % 24.2 20.0-40.0 % LAB MON(LOINC) Monocyte % 6.8 2.0-13.0 % LAB EO(LOINC) Eosinophil % 2.5 0.0-6.0 % LAB BAS(LOINC) Basophil % 1.0 0.0-2.5 % LAB ABLYM(LOINC) Lymphocyte, Absolute 2.2 0.9-4.3 10 3/mcL LAB MIKEY(LOINC) Monocyte, Absolute 0.6 0.1-1.4 10 3/mcL LAB AEOS(LOINC) Eosinophil, Absolute 0.2 0.0-0.7 10 3/mcL LAB ABAS(LOINC) Basophil, Absolute 0.1 0.0-0.3 10 3/mcL Performed By: #### CBC, ADIF F, ANEU, MDW, LAC, LIP, CMP, GFR #### [place] [address] .NEUABS Collected: 1:09 PM Status: F Source: [facility] MAIN TYPE CODE TESTS RESULT OUT OF RANGE REFERENCE UNITS LAB ANEU(LOINC) Neutrophil, Absolute 5.9 2.3-8.1 10 3/mcL Performed By: #### CBC, ADIF F, ANEU, MDW, LAC, LIP, CMP, GFR #### [place] [address] .MDW Collected: 03/09/2025 1:09 PM Status: F Source: [facility] MAIN TYPE CODE TESTS RESULT OUT OF RANGE REFERENCE UNITS LAB MDW(LOINC) Monocyte Distribution Width 14.95 0.00-20.00 Result Comment: For ED adult patients suspected of sepsis, MDW<=20.0 does not rule out sepsis or risk of sepsis Performed By: #### CBC, ADIF F, ANEU, MDW, LAC, LIP, CMP, GFR #### [place] [address] LAC Collected: 03/09/2025 1:09 PM Status: F Source: [facility] MAIN TYPE CODE TESTS RESULT OUT OF RANGE REFERENCE UNITS LAB LAC(LOINC) Lactic Acid Lvl 0.9 0.5-2.2 mmol/L Performed By: #### CBC, ADIF F, ANEU, MDW, LAC, LIP, CMP, GFR #### [place] [address] LIP Collected: 03/09/2025 1:09 PM Status: F Source: [facility] TYPE CODE TESTS RESULT OUT OF RANGE REFERENCE UNITS LAB LIP(LOINC) Lipase Level 25 12-53 U/L Result Comment: Note - New Reference Range in effect 20 Performed By: #### CBC, ADIF F, ANEU, MDW, LAC, LIP, CMP, GFR #### [place] [address] CMP Collected: 03/09/2025 1:09 PM Status: F Source: [facility] MAIN TYPE CODE TESTS RESULT OUT OF RANGE REFERENCE UNITS LAB GLU(LOINC) Glucose Level 80 70-110 mg/dL LAB NA(LOINC) Sodium Level 140 136-145 mEq/L LAB K(LOINC) Potassium Level 3.9 3.5-5.0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 Kessler M.D. 03/08/25 01:02:53 EDT) Generated by [facility] 3 of 3 ED NURSES CLINICAL NOTE Observed: 2024 8:42 PM Status: F Source: [facility] Nurse Narrative Nurse Clinical Narrative [address] [place] [address] [phone] 03/07/2025 20:42:00 Patient: TOR BERMAN Sex: Female : 1990 Age: 34y Disposition: Discharge to Home Disposition Decision Time: 21:58 03/07/2025 Departure Time: 22:05 03/07/2025 TRIAGE Arrived by private vehicle. Historian: (patient). Primary physician (Dr. Pace). Triage time: 20:42 03/07/2025. Acuity: LEVEL 3. Chief Complaint: PELVIC PAIN and (diagnosed with 3mm kidney stone 2 days ago). Onset. (2 days ago). The patient has had abdominal pain and flank pain. No spotting, hematuria, abnormal bleeding or fever. SEPSIS SCREEN: NEGATIVE. SIRS criteria negative. No possible sources of infection. -- 20:55 03/07/25 EDT Virginia Dior R.N. 20:53 03/07/25. BP: 131/94 MAP: 106. HR: 80. RR: 16. O2 saturation: 94% Temperature: 99.1 F. Pain level now 810. -- 20:54 03/07/25 GINNY Dior R.N. Measurements: 20:49 03/07/25 Wt: 49.9 kg, Ht/Aden: 65.0 in, BMI: 18.30 -- 20:49 03/07/25 GINNY Dior R.N. Medications: zofran m mg every 6 hours. -- 20:56 03/07/25 GINNY Dior R.N. lexapro m mg once a day. -- 20:56 03/07/25 GINNY Dior R.N. 1 of 4 Nurse Narrative Lorazepam Intensol 2 mg/mL oral concentrate: 1 mg three times a day. -- 20:56 03/07/25 GINNY Dior R.N. oxycodone 10 mg tablet: 10 mg every 6 hours. -- 20:56 03/07/25 GINNY Dior R.N. Allergies: Penicillins -- 20:56 03/07/25 GINNY Dior R.N. Haldol -- 20:56 03/07/25 GINNY Dior R.N. Problems: Cancer. (stage 3 cervicle. Currently in remission) -- 20:56 03/07/25 GINNY Dior R.N. Renal Failure. (Left kidney only) -- 20:56 03/07/25 GINNY Dior R.N. Depression -- 20:56 03/07/25 GINNY Dior R.N. Anxiety disorder -- 20:56 03/07/25 GINNY Dior R.N. ADDITIONAL SURGERIES: nephrostomy tube -- 20:56 03/07/25 GINNY Dior R.N. cervicle biopsy -- 20:56 03/07/25 GINNY Dior R.N. History 20:42 03/07/25. SOCIAL HX: Light tobacco smoker- less than 1/2 a pack per day. Drug use: marijuana. No alcohol use. The patient has not traveled outside the [place] Infectious disease exposure: No infectious disease exposure. ABUSE ASSESSMENT: The patient answered "yes" to the question(s) "Do you feel safe in your home?" and "no" to the question(s) "Are you afraid to go home?". SELF HARM ASSESSMENT: Self harm assessment was performed. The patient answered no to the question(s) "Have you recently felt down, depressed, or hopeless?" and "Do you have thoughts of harming or killing yourself?". FALL RISK ASSESSMENT: Fall risk assessment completed. No risk factors identified. -- 20:55 03/07/25 EDT Virginia Dior R.N. 2 of 4 Nurse Narrative Interventions 20:42 03/07/25. Advanced care plan. Patient does not have advanced directive. -- :03/07/25 EDT Virginia Dior R.N. PHYSICAL ASSESSMENT 21:03/07/25. Ambulatory to room. Patient gowned. GENERAL / NEURO / PSYCH: Alert. Oriented X 4. Appears in no acute distress. 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 RESPIRATORY: Respirations not labored. Breath sounds within normal limits. GI / : Abdomen soft and nontender. SKIN: Skin is warm and dry. -- 22:00 03/07/25 EDT Louis Darden R.N. NURSING PROGRESS NOTES 21:03/07/25. Site #1 started via IV in the left wrist with a 20g angiocath with aseptic technique and good blood return; 1 attempt. Blood drawn: rainbow set tube(s). Saline lock flushed with 5 mL saline. -- :03/07/25 LILIANAT Virginia Dior R.N. 21:03/07/25. Patient gowned. Two patient identifiers checked. Call light placed in reach. Side rails up x 1. Bed placed in lowest position. Brakes of bed on. -- 22:01 03/07/25 EDT Louis Darden R.N. 21:23 03/07/25. Zofran IVP 8 mg given via Site# 1. Allergies verified and confirmed 5 rights. IV patency established. IV site checked: no pain, redness, or swelling. IV flushed thoroughly pre-medication administration. Information reviewed with patient including reason for taking this medication and signs of allergic reaction. Verbalizes understanding. -- 21:03/07/25 EDT Virginia Dior R.N. 21:25 03/07/25. HYDROmorphone (Dilaudid) IVP 1 mg given via Site# 1. Allergies verified and confirmed 5 rights. IV patency established. IV site checked: no pain, redness, or swelling. IV flushed thoroughly pre-medication administration. Information reviewed with patient including reason for taking this medication, signs of allergic reaction, precautions and sedative warning. Verbalizes understanding. (8/10 left pelvic pain). -- 21:03/07/25 EDT Virginia Dior R.N. 21:27 03/07/25. IV NS 0.9 % 1000 mL started in bag#1 1000 mL at 999 mL/hr via Site# 1. Allergies verified and confirmed 5 rights. Via dial-a-flow. IV patency established. IV site checked: no pain, redness, or swelling. IV flushed thoroughly pre-medication administration. Information reviewed with patient including reason for taking this medication. Verbalizes understanding. -- 21:03/07/25 EDT Louis Darden R.N. 21:28 03/07/25. BP: 135/92 MAP: 114 mmHg. HR: 71 bpm. -- 22:03/07/25 EDT Louis Darden R.N. 21:32 03/07/25. HR: 70 bpm. O2 saturation: 94%. -- 22:03/07/25 EDT Louis Darden R.N. 21:38 03/07/25. BP: 117/83 MAP: 97 mmHg. HR: 67 bpm. -- 22:03/07/25 EDT Louis Darden R.N. 3 of 4 Nurse Narrative 21:42 03/07/25. HR: 63 bpm. O2 saturation: 96%. -- 22:03/07/25 EDT Louis Darden R.N. 21:53 03/07/25. BP: 129/89 MAP: 102 mmHg. HR: 54 bpm. -- 22:03/07/25 EDT Louis Darden R.N. 21:57 03/07/25. HR: 61 bpm. O2 saturation: 96%. -- 22:03/07/25 EDT Louis Darden R.N. DISPOSITION / DISCHARGE 21:51 03/07/25. IV NS 0.9 %: Medication Discontinued. bag #1 infused upon discharge. Total amount infused: 1000 mL. IV patency established. IV site checked: no pain, redness, or swelling. IV flushed thoroughly post-medication administration. -- 22:03/07/25 EDT Louis Darden R.N. 21:53 03/07/25. BP: 129/89 MAP: 102 mmHg. HR: 54 bpm. -- 22:03/07/25 EDT Louis Darden R.N. 21:57 03/07/25. HR: 61 bpm. O2 saturation: 96%. -- 22:03/07/25 EDT Louis Darden R.N. 22:03/07/25. Condition at departure: improved. Discharge instructions provided and reviewed. Patient verbalized understanding. Written instructions provided in Palestinian. The patient was discharged home. The patient left ambulatory and via private vehicle. 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 -- 22:03/07/25 EDT Louis Darden R.N. Departure time: 22:03/07/2025. -- 22:03/07/25 EDT Louis Darden R.N. 22:03/07/25. RR: 16. Pain level now 7/10. -- 22:03/07/25 EDT Louis Darden R.N. 22:03/07/25. RR: 16. Pain level now 7/10. -- 22:03/07/25 EDT Louis Darden R.N. 22:03/07/25. Site #1 removed upon discharge. Catheter intact. Bandage applied. -- 22:03/07/25 EDT Louis Darden R.N. (Electronically signed by Louis Darden R.N. 03/07/25 22:18:07 EDT) Generated by [facility] 4 of 4 ED VISIT SUMMARY Observed: 03/07/2025 8:42 PM Status: F Source: [facility] Visit Overview Visit Overview [place] [id number] [facility] [place] [address] [phone] 03/07/2025 Patient: TOR BERMAN Sex: Female : 1990 Age: 34y 03/08/2025 01:02 AM EDT ED Arrival:20:42 03/07/2025 EDT Status: Recent Travel:no Language:eng Adv Directive:No Isolation Status: Ethnicity:N Fall Risk:no risk Infectious Disease Exposure:no Measurements:5'5" / 165.1 Self-Harm Status:risk Sepsis Screen:negative cm 110.0 lb / 49.9 kg Chief Complaint:PELVIC PAIN, (2 days ago), (diagnosed with 3mm kidney stone 2 days ago ), and (Dr. Pace ) ALLERGIES Haldol Penicillins HOME MEDICATIONS lexapro m mg once a day. Lorazepam Intensol 2 mg/mL oral concentrate: 1 mg three times a day. oxycodone 10 mg tablet: 10 mg every 6 hours. zofran m mg every 6 hours. 1 3 Visit Overview PAST MEDICAL HISTORY / PROBLEMS Anxiety disorder Cancer. (stage 3 cervicle. Currently in remission) Depression Renal Failure. (Left kidney only) See nurses notes PAST SURGICAL HISTORY nephrostomy tube SOCIAL HISTORY Smoking status: Yes Alcohol use: No Drug use: Yes ED COURSE MEDICATIONS GIVEN IN EMERGENCY DEPARTMENT 21:23 03/07/25 Zofran IVP 8 mg 21:25 03/07/25 HYDROmorphone (Dilaudid) IVP 1 mg 21:27 03/07/25 IV NS 0.9 % 1000 mL 999 mL/hr IV SITE INFORMATION INTAKE OUTPUT REASSESMENT (most recent) 21:20 03/07/25. Ambulatory to room. Patient gowned. GENERAL / NEURO / PSYCH: Alert. Oriented X 4. Appears in no acute distress. 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 RESPIRATORY: Respirations not labored. Breath sounds within normal limits. GI / : Abdomen soft and nontender. SKIN: Skin is warm and dry. VITAL SIGNS 2 of 3 Visit Overview First Vitals Last Vitals Temp 20:53 03/07/25 99.1 F Temp 22:05 03/07/25 BP 20:53 03/07/25 131/94 BP 22:05 03/07/25 HR 20:53 03/07/25 80 HR 22:05 03/07/25 RR 20:53 03/07/25 16 RR 22:05 03/07/25 16 O2 Sat 20:53 03/07/25 94% O2 Sat 22:05 03/07/25 Pain 20:53 03/07/25 8 Pain 22:05 03/07/25 7 ETCO2 20:53 03/07/25 ETCO2 22:05 03/07/25 GCS 20:53 03/07/25 GCS 22:05 03/07/25 RTS 20:53 03/07/25 RTS 22:05 03/07/25 PROCEDURES NURSING INTERVENTIONS LABS / STUDIES LABS / STUDIES ORDERED BMP CBC w Diff LABS / STUDIES PENDING IMPORT BMP with eGFR CBC + DIFF CLINICAL IMPRESSION ACUTE NONTRAUMATIC PAIN IN THE LEFT UPPER QUADRANT AND LEFT LOWER QUADRANT OF THE ABDOMEN VOMITING WITH NAUSEA [address] KUB (KIDNEY STONE PROTOCOL) Observed: 03/06/2025 3:58 AM Status: F Source: [place] [id number] Patient: TOR BERMAN Phone#: : 1990 Age: 34 Gender: F Pt. Type: ER Account: [id number] Location: [facility] Ordering: GONZALEZ PINEDA Exam Date: 03/05/2025/22:45 Family Phys: Charge Code: [id number] Physician: [place] Order #: [id number] Dose#: [id number] PROCEDURE: CT ABDOMEN AND PELVIS WITHOUT CONTRAST COMPARISON: [facility], CT, ABDOMEN/PELVIS W/O CON, 02/10/2025, 2:00. [facility], CT, KUB W/O CON, 07/05/2021, 14:05. INDICATIONS: Left flank pain TECHNIQUE: After obtaining the patient's consent, CT images of the abdomen and pelvis were created without non-ionic intravenous contrast material. All CT scans at this facility use dose modulation, iterative reconstruction, and/or weight based dosing when appropriate to reduce radiation dose to as low as reasonably achievable. IV CONTRAST: No IV contrast used,ml TOTAL DOSE: 5.5 CTDIvol(mGy) FINDINGS: KIDNEYS: The right kidney is unremarkable. There is left-sided nephrostomy coiled at the renal pelvis. There is no evidence of hydronephrosis. There are approximately 6 calculi in the distal left ureter measuring approximately 3 millimeters each. There is mild thickening of the proximal left ureter. ADRENALS: Normal. No mass or enlargement. URINARY BLADDER: Normal. No visible focal wall thickening, lesion, or calculus. LIVER: Normal. No enlargement, atrophy, abnormal density, or significant focal lesion. BILIARY: The gallbladder is contracted. PANCREAS: Normal. No lesion, fluid collection, ductal dilatation, or atrophy. SPLEEN: Normal. No enlargement or focal lesion. AORTA/VASCULAR: Normal. No aneurysm. RETROPERITONEUM: Normal. No mass or adenopathy. BOWEL/MESENTERY: There is large volume gastric contents. Correlate with most recent meal. There is moderate to large from stool retention. ABDOMINAL WALL: Normal. No mass or hernia. PELVIC NODES: Normal. No adenopathy. PELVIC ORGANS: The uterus is absent. Continued Report - Page 2 of 2 Patient: TOR BERMAN Phone#: : 1990 Age: 34 Gender: F Pt. Type: ER Account: [id number] Location: 052 Ordering: GONZALEZ PINEDA Exam Date: 03/05/2025/22:45 Family Phys: Charge Code: [id number] Physician: Ingham Order #: [id number] Dose#: [id number] BONES: Normal. No bony lesion or fracture. LUNG BASES: Normal. No visible pulmonary or pleural disease. OTHER: Negative. CONCLUSION: 1. Left-sided nephrostomy. There is no evidence of hydronephrosis. There are several calculi in the distal left ureter. 2. Moderate to large volume stool retention. There is large volume gastric contents. Correlate with time of most recent meal. Dictated by: Cynthia Douglas MD on 03/06/2025 at 3:49 Approved by: Cynthia Douglas MD on 03/06/2025 at 3:59 URINALYSIS Collected: 10:35 PM Status: F Source: [facility] TYPE CODE TESTS RESULT OUT OF RANGE REFERENCE UNITS LAB URINALYSIS(ISAIAH NC) URINALYSIS Result Comment: URINALYSIS LAB Specimen Type(LOINC) Specimen Type R LAB Color(LOINC) Color p.yel NORMAL: YELLOW LAB Clarity(LOINC) Clarity sl.cloudy RAJIV L: CLEAR LAB ph(LOINC) ph 7 NORMAL: 5.0-8.0 LAB Protein(LOINC) Protein 30 Abnormal RAJIV L: NEGATIVE LAB Glucose(LOINC) Glucose NORM RAJIV L: NORMAL LAB Ketone(LOINC) Ketone NEG NORMAL : NEGATIVE LAB Bilirubin(LOIN C) Bilirubin NEG NORMAL: NEGATIVE LAB Blood(LOINC) Blood 50 Abnormal NORMAL: NEGATIVE LAB Urobilinog(ISAIAH NC) Urobilinog NORM NORMAL: NORMAL LAB Sp Stem(LOINC) Sp Stem 1.010 NORMAL: 1.010-1.030 LAB Nitrite(LOINC) Nitrite NEG RAJIV L: NEGATIVE LAB Leukocytes(ISAIAH NC) Leukocytes 500 Abnormal NORMAL: NEGATIVE LAB Microscopic(LO INC) Microscopic SEE BELOW Result Comment: MICROSCOPIC LAB Wbc(LOINC) Wbc 26-50 0-5/hpf LAB Rbc(LOINC) Rbc 0-5 0-3/hpf LAB Casts(LOINC) Casts NONE LAB Crystals(LOINC ) Crystals NONE LAB Amorphous(LOIN C) Amorphous 1+ LAB Bacteria(LOINC ) Bacteria 3+ LAB Epi Cells(LOINC) Epi Cells FEW LAB Mucous(LOINC) Mucous NONE LAB Yeast(LOINC) Yeast NONE Performed By: #### [id number] ## ## [facility],[address] [place] [address] URINE CULTURE [CCL] Observed: 03/05/2025 10:35 PM Status: F Source: [facility] URCUL See Results Below See Below CULTURE, URINE Culture in Progress SOURCE: Urine, Nephrostomy See Below CULTURE, URINE MIXED MICROBIOTA INCLUDING 3 DIFFERENT COLONY TYPES, AND NO ONE TYPE PREDOMINATING. NO FURTHE WORKUP. >=100,000 CFU/ml Mixed microbiota including 3 different colony types, and no one This test was developed and its performance characteristics determined by the [facility] [place] [place] ([facility]). It has not been cleared or approved by the FDA. -[facility] is regulated under CLIA as qualified to perform high-complexity testing. This test is used for clinical purposes. It should not be regarded as investigational or for research. SOURCE: Urine, Nephrostomy [facility] [address] [place] [address] Joao Alvarenga III, M.D. [id number] SEND TO YES Performed By: #### [id number] ## ## [place] [id number] LACTATE Collected: 5 10:24 PM Status: F Source: [facility] TYPE CODE TESTS RESULT OUT OF RANGE REFERENCE UNITS LAB LACTATE(LOINC) LACTATE 1.5 0.4 - 2.0 mmol/L Performed By: #### [id number] ## ## [address] [id number] CBC + DIFF Collected: 5 10:15 PM Status: F Source: [facility] TYPE CODE TESTS RESULT OUT OF RANGE REFERENCE UNITS LAB CBC + DIFF(LOINC) CBC + DIFF Result Comment: CBC-COMPLETE BLOOD COUNT LAB WBC(LOINC) WBC 9.2 4.5 - 10.8 x 10EE3/UL LAB RBC(LOINC) RBC 4.05 Low 4.10 - 5.30 x 10EE6/UL LAB HEMOGLOBIN([facility] [place]) HEMOGLOBIN 13.7 12.0 - 16.0 g/dl LAB HEMATOCRIT([facility]) HEMATOCRIT 38.4 34.0 - 46.0 % LAB MCV(LOINC) MCV 95 80 - 99 fl LAB MCH(LOINC) MCH 34 High 27 - 33 pg LAB MCHC(LOINC) MCHC 36 32 - 36 X10 3 LAB RDW/CV(LOINC) RDW/CV 13.4 12.0 - 15.6 % LAB PLATELET(LOINC ) PLATELET 347 150 - 450 x10EE3/UL LAB MPV(LOINC) MPV 6.8 6.6 - 10.5 fl Result Comment: AUTOMATED DI FFERENTIAL LAB NEUT %(LOINC) NEUT % 59.0 46.0 - 76.0 % LAB LYMPH %(LOINC) LYMPH % 30.0 20.0 - 45.0 % LAB MONOS %(LOINC) MONOS % 7.7 0.0 - 10.0 % LAB EO %(LOINC) EO % 3.0 0.0 - 7.0 % LAB BASO %(LOINC) BASO % 0.3 0.0 - 2.0 % LAB Lymph #(LOINC) Lymph # 2.75 0.80 - 2.80 x10EE 3/UL LAB Neut #(LOINC) Neut # 5.41 1.50 - 7.10 x10EE3 /UL LAB Green #(INC) Green # 0.71 0.20 - 1.00 x10EE3 /UL LAB EO #(LOINC) EO # 0.28 0.00 - 0.50 x10EE3/U L LAB Baso #([facility]) Baso # 0.03 0.00 - 0.10 x10EE3 /UL LAB MANUAL DIFF(INC) MANUAL DIFF N/A LAB MORPHOLOGY([facility] [place]) MORPHOLOGY N/A Performed By: #### [id number] ## ## [facility],[address] [place] [address] CMP WITH EGFR Collected: 5 10:15 PM Status: F Source: [facility] TYPE CODE TESTS RESULT OUT OF RANGE REFERENCE UNITS LAB CMP with eGFR(INC) CMP with eGFR Result Comment: COMPREHENSIV E METABOLIC PANEL LAB SODIUM(LOINC) SODIUM 139 136 - 145 mmol/l LAB POTASSIUM(LOIN C) POTASSIUM 3.6 3.5 - 5.1 mmol/L LAB CHLORIDE(LOINC ) CHLORIDE 107 98 - 107 mmol/L LAB CO2(LOINC) CO2 24.2 21.0 - 32.0 mmol/L LAB GLUCOSE(LOINC) GLUCOSE 111 High 74 - 106 mg/dl LAB BUN(LOINC) BUN 11 7 - 18 mg/dl LAB CREATININE([place]) CREATININE 1.03 High 0.55 - 1.02 mg/dl LAB AST/SGOT(LOINC ) AST/SGOT 21 13 - 39 U/L Result Comment: LIPEMIC SAMP LE;MANUAL DILUTION PERFORMED LAB ALK PHOS(LOINC) ALK PHOS 70 46 - 116 U/L LAB CALCIUM(LOINC) CALCIUM 8.8 8.5 - 10.1 mg/dl LAB TOTAL PROTEIN(LOINC) TOTAL PROTEIN 6.4 6.4 - 8.2 g/dl LAB ALBUMIN(LOINC) ALBUMIN 3.5 3.4 - 5.0 g/dL LAB GLOBULIN(LOINC ) GLOBULIN 2.9 1.5 - 3.8 G/DL LAB A/G RATIO(LOINC) A/G RATIO 1.2 0.9 - 1.6 LAB TOTAL BILI(LOINC) TOTAL BILI 0.3 0.2 - 1.0 mg/dl LAB B/C RATIO(LOINC) B/C RATIO 11 0 - 30 ratio LAB ALT/SGPT(LOINC ) ALT/SGPT 15 Low 16 - 63 U/L LAB ANION GAP(LOINC) ANION GAP 11 10 - 20 mmol/L LAB AGE(LOINC) AGE 34 years LAB eGFR(LOINC) eGFR >60 60 - 999 ML/MINUT E LAB eGFR(AA)(LOINC ) eGFR(AA) >60 60 - 999 ML/MINUT E Result Comment: ACCORDING TO THE NATIONAL KIDNEY DISEASE EDUCATION PROGRAM(NKDE), A NORMAL eGFR IS A VALUE GREATER THAN OR EQUAL TO 60 ML/MIN/1.73 SQ METERS. CHRONIC KIDNEY DISEASE: <60mL/MIN/1.73 SQ METERS KIDNEY FAILURE: <15mL/MIN/1.73 SQ METERS THIS TEST SHOULD ONLY BE USED FOR PATIENTS 18 YEARS OF AGE AND OLDER. Performed By: #### [id number] ## ## [place] [id number] ED NURSES CLINICAL NOTE Observed: 2024 9:38 PM Status: C Source: [facility] Nurse Narrative [place] [address] [phone] 03/05/2025 21:38:00 Patient: TOR BERMAN Sex: Female : 1990 Age: 34y Disposition: Discharge to Home Disposition Decision Time: 00:52 03/06/2025 Departure Time: 01:11 03/06/2025 TRIAGE Arrived by private vehicle. Historian: (patient). Primary physician (Dr. Pace [place]). Triage time: 21:39 03/05/2025. Acuity: LEVEL 3. Chief Complaint: ABDOMINAL PAIN and FLANK PAIN (Left flank pain. Odorous drainage from left nephrostomy tube insertion site.). This started yesterday. ( LLQ radiating down to vagina. Nephrostomy tubing replaced 2 weeks ago at [place], Urologist Dr. Sanders. Patient is supposed o get left kidney removed in approximately one month.). The patient has had nausea, diarrhea and constipation. SEPSIS SCREEN: NEGATIVE. SIRS criteria negative: heart rate greater than 90. Possible sources of infection: UTI. -- 21:51 03/05/25 EDT Shantelle Mercedes R.N. 21:39 03/05/25. ( Oxycodone 10mg at 1100. Zofran PO 4mg at 1500.). -- 21:54 03/05/25 LILIANAT Shantelle Mercedes R.N. 21:47 03/05/25. BP: 105/82 taken on right arm, while lying. MAP: 90. HR: 99. Regular. RR: 16. O2 saturation: 97% on room air. Temperature: 98.1 F (oral). Pain level now 7/10. Describes the pain as sharp and burning. (Left flank). -- 21:51 03/05/25 LILIANAT Shantelle Mercedes R.N. Measurements: 21:47 03/05/25 Wt: 49.9 kg, Ht/Aden: 65.0 in, BMI: 18.30 -- 21:47 03/05/25 EDT Shantelle Mercedes R.N. 1 of 5 Nurse Narrative Medications: zofran: 4 mg every 6 hours as needed. -- 21:52 03/05/25 LILIANAT Shantelle Mercedes R.N. lexapro: 20 mg once a day . -- 21:52 03/05/25 LILIANAT Shantelle Mercedes R.N. LORazepam IntensoL 2 mg/mL oral concentrate: 1 mg three times a day as needed. -- 21:52 03/05/25 LILIANAT Shantelle Mercedes R.N. oxycodone 10 mg tablet: 10 mg every 6 hours as needed. -- 21:52 03/05/25 LILIANAT Shantelle Mercedes R.N. Allergies: Penicillins -- 21:43 03/05/25 LILIANAT Shantelle Mercedes R.N. Haldol -- 21:43 03/05/25 LILIANAT Shantelle Mercedes R.N. Problems: Cancer. (stage 3 cervicle. Currently in remission) -- 21:44 03/05/25 GINNY Mercedes R.N. Renal Failure. (Left kidney only) -- 21:44 03/05/25 LILIANAT Shantelle Mercedes R.N. Depression -- 21:54 03/05/25 LILIANAT Shantelle Mercedes R.N. Anxiety disorder -- 21:54 03/05/25 LILIANAT Shantelle Mercedes R.N. ADDITIONAL SURGERIES: nephrostomy tube -- 21:44 03/05/25 GINNY Mercedes R.N. cervicle biopsy -- 21:44 03/05/25 GINNY Mercedes R.N. History 21:39 03/05/25. PAST MEDICAL HX: Immunizations: up-to-date. Denies current . SOCIAL HX: Light tobacco smoker (cigarette)- less than 1/2 a pack per day. Weekly drug use: marijuana. Recently used drugs days ago. No alcohol use. The patient has not traveled outside the [place] Infectious disease exposure: No infectious disease exposure. ABUSE ASSESSMENT: The patient answered "yes" to the question(s) "Do you feel safe in your home?" and "no" to the question(s) "Are you afraid to go home?". 2 of 5 Nurse Narrative SELF HARM ASSESSMENT: Self harm assessment was performed. The patient answered no to the question(s) "Have you recently felt down, depressed, or hopeless?" and "Do you have thoughts of harming or killing yourself?". FALL RISK ASSESSMENT: Fall risk assessment completed. No risk factors identified. -- 21:51 03/05/25 GINNY Mercedes R.N. Interventions 21:39 03/05/25. Advanced care plan discussed with patient. Patient does not have advanced directive. -- 21:51 03/05/25 EDT Shantelle Mercedes R.N. PHYSICAL ASSESSMENT 22:51 03/05/25. Ambulatory to room. Patient gowned. ( Patient presents to Er with c/o LLQ and left flank pain. Reports purulent drainage around nephrostomy tube for several days.). GENERAL / NEURO / PSYCH: Alert. Oriented X 4. Appears in no acute distress. RESPIRATORY: Respirations not labored. Breath sounds within normal limits. CVS: Normal sinus rhythm noted. Cardiac rhythm: normal sinus rhythm; (78). Capillary refill less than 2 seconds. GI / : No decreased urination. The patient has had nausea and diarrhea. Abdomen soft. Bowel sounds within normal limits. No emesis noted. Patient is not incontinent of urine. No blood present at the urethral meatus. No pain with urination, frequency of urination, vaginal bleeding or discharge or urgency of urination. No hematuria. SKIN: Skin is warm. -- 23:16 03/05/25 EDT Virginia Dior R.N. NURSING PROGRESS NOTES 22:24 03/05/25. Site #1 started via IV in the right antecubital space with a 20g angiocath with aseptic technique and good blood return; 1 attempt. Blood drawn: arriola tube(s). Saline lock flushed with 5 mL saline. -- 22:29 03/05/25 EDT Pranav Landin E.M.T.-P. 22:32 03/05/25. IV NS 0.9 % 1000 mL started in bag#1 1000 mL at 100 mL/hr via Site# 1. Allergies verified and confirmed 5 rights. IV patency established. IV site checked: no pain, redness, or swelling. IV flushed thoroughly pre-medication administration. Information reviewed with patient including reason for taking this medication, signs of allergic reaction and precautions. Verbalizes understanding. -- 22:35 03/05/25 LILIANAT Virginia Dior R.N. 22:33 03/05/25. Patient identifiers checked. Call light placed in reach. Side rails up x 2. Bed placed in lowest position. Brakes of bed on. -- 22:43 03/05/25 LILIANAT Virginia Dior R.N. 22:34 03/05/25. BP: 114/67 MAP: 72 mmHg. HR: 89 bpm. -- 01:18 03/06/25 EDT Virginia Dior R.N. 22:35 03/05/25. HR: 94 bpm. O2 saturation: 94%. -- 01:18 03/06/25 EDT Virginia Dior R.N. 22:41 03/05/25. Patient walked to NH with body technician. -- 22:43 03/05/25 EDT Virginia Dior R.N. 3 of 5 Nurse Narrative 22:52 03/05/25. Ondansetron IVP 4 mg given via Site# 1. Allergies verified and confirmed 5 rights. IV patency established. IV site checked: no pain, redness, or swelling. IV flushed thoroughly pre-medication administration. Information reviewed with patient including reason for taking this medication, signs of allergic reaction and precautions. Verbalizes understanding. -- 22:52 03/05/25 EDT Virginia Dior R.N. 22:53 03/05/25. MORPHine IVP 4 mg given via Site# 1. Allergies verified and confirmed 5 rights. IV patency established. IV site checked: no pain, redness, or swelling. IV flushed thoroughly pre-medication administration. Information reviewed with patient including reason for taking this medication, signs of allergic reaction, precautions and sedative warning. Verbalizes understanding. (LLQ abd left flank pain 8/10). -- 22:58 03/05/25 EDT Virginia Dior R.N. 23:00 03/05/25. Rounding: Pain: assessed pain level. Proximity of possessions / care items: call light within easy reach. Set expectations: asked if they needed anything else at this time. (Returned from NH ). -- 01:04 03/06/25 LILIANAT Virginia Dior R.N. 23:03/05/25. BP: 109/76 MAP: 86 mmHg. HR: 80 bpm. -- 01:18 03/06/25 EDT Virginia Dior R.N. 23:03/05/25. HR: 79 bpm. O2 saturation: 97%. -- 01:18 03/06/25 LILIANAT Virginia Dior R.N. 23:03/05/25. BP: 111/83 MAP: 90 mmHg. HR: 75 bpm. -- 01:18 03/06/25 EDT Virginia Dior R.N. 23:20 03/05/25. HR: 71 bpm. O2 saturation: 98%. -- 01:03/06/25 EDT Virginia Dior R.N. 23:26 03/05/25. HYDROmorphone (Dilaudid) IVP 0.5 mg given via Site# 1. Allergies verified and confirmed 5 rights. IV patency established. IV site checked: no pain, redness, or swelling. IV flushed thoroughly pre-medication administration. IVP given by EMT-P. Information reviewed with patient including sedative warning. Verbalizes understanding. Vitals: 23:20 03/05/2025 BP: 111/83 MAP: 90 mmHg. HR: 75 bpm. -- 23:27 03/05/25 EDT Pranav Landin E.M.T.-P. 23:34 03/05/25. BP: 110/75 MAP: 81 mmHg. HR: 74 bpm. -- 01:03/06/25 EDT Virginia Dior R.N. 23:35 03/05/25. HR: 76 bpm. O2 saturation: 97%. -- 01:03/06/25 EDT Virginia Dior R.N. 23:39 03/05/25. cefTRIAXone (Rocephin) IVPB 1gm/50ml NS 1 g started at 100 mL/hr diluted in sodium chloride IVPB 0.9 % Minibag+ 50 mL via Site# 1. Allergies verified and confirmed 5 rights. IV patency established. IV site checked: no pain, redness, or swelling. IV flushed thoroughly pre-medication administration. Information reviewed with patient including reason for taking this medication, signs of allergic reaction and precautions. Verbalizes understanding. -- 23:41 03/05/25 LILIANAT Virginia Dior R.N. 23:49 03/05/25. BP: 114/77 MAP: 87 mmHg. HR: 72 bpm. -- 01:03/06/25 LILIANAT Virginia Dior R.N. 23:50 03/05/25. HR: 75 bpm. O2 saturation: 98%. -- 01:03/06/25 EDT Jamison CorneliusNApril 00:03/06/25. BP: 101/70 MAP: 77 mmHg. HR: 75 bpm. -- 01:03/06/25 EDT aJmison CorneliusNApril 00:03/06/25. IV NS 0.9 %: Medication Discontinued. bag #1 completed. Total amount infused: 100 mL. IV patency established. IV site checked: no pain, redness, or swelling. IV flushed thoroughly post-medication administration. -- 01:03/06/25 EDT Jamison CorneliusNApril 00:03/06/25. HR: 81 bpm. O2 saturation: 96%. -- 01:03/06/25 EDT Jamison CorneliusNApril 00:03/06/25. cefTRIAXone (Rocephin) IVPB 1gm/50ml NS: Medication Discontinued. IV completed. Total amount infused: 50 mL. IV patency established. IV site checked: no pain, redness, or swelling. IV flushed thoroughly post-medication administration. -- 01:03/06/25 GINNY Dior R.N. 4 of 5 Nurse Narrative 00:03/06/25. BP: 98/66 MAP: 74 mmHg. HR: 78 bpm. -- 01:03/06/25 Jamison OtooleNApril 00:20 03/06/25. HR: 83 bpm. O2 saturation: 96%. -- 01:03/06/25 Jamison OtooleNApril 00:34 03/06/25. BP: 105/68 MAP: 76 mmHg. HR: 86 bpm. -- 01:03/06/25 EDT Jamison CorneliusNApril 00:35 03/06/25. HR: 88 bpm. O2 saturation: 96%. -- 01:03/06/25 Jamison OtooleNApril 00:45 03/06/25. Rounding: Pain: assessed pain level. Personal care / toileting: assisted with toileting. Proximity of possessions / care items: call light within easy reach. Set expectations: asked if they needed anything else at this time. (Reports 7/10 lower abd pain. notified ). -- 01:06 03/06/25 EDT Virginia Diro R.N. 00:56 03/06/25. HYDROmorphone (Dilaudid) IVP 0.5 mg given via Site# 1. Allergies verified and confirmed 5 rights. IV patency established. IV site checked: no pain, redness, or swelling. IV flushed thoroughly pre-medication administration. Information reviewed with patient including reason for taking this medication, signs of allergic reaction and precautions. Verbalizes understanding. -- 00:59 03/06/25 EDT Virginia Dior R.N. 00:59 03/06/25. BP: 104/71 MAP: 79 mmHg. HR: 70 bpm. -- 01:03/06/25 EDT Virginia Dior R.N. 01:03/06/25. HR: 76 bpm. O2 saturation: 97%. -- 01:03/06/25 LILIANAT Virginia Dior R.N. DISPOSITION / DISCHARGE 01:03/06/25. RR: 16. Temperature: 97.6 F. Pain level now 12/13. -- 01:03/06/25 LILIANAT Virginia Dior R.N. 01:03/06/25. BP: 112/77 MAP: 87 mmHg. HR: 71 bpm. -- 01:03/06/25 EDT Jamison CorneliusNApril 01:03/06/25. Cardiac rhythm: normal sinus rhythm. -- 01:15 03/06/25 LILIANAT Jamison CorneliusNApril 01:03/06/25. HR: 75 bpm. O2 saturation: 97%. -- 01:03/06/25 EDT Jamison CorneliusNApril 01:03/06/25. Site #1 removed upon discharge. Pressure dressing applied. -- 01:03/06/25 GINNY Dior R.N. Departure time: 01:03/06/2025. Condition at departure: improved and stable. Discharge instructions provided and reviewed with the patient. Patient verbalized understanding. Written instructions provided in Palestinian. The patient was discharged by the physician. The patient was discharged home and accompanied by friend. The patient left ambulatory and via private vehicle. Driving (friend). -- 01:15 03/06/25 EDT Virginia Dior R.N. (Electronically signed by Virginia Dior R.N. 03/06/25 01:52:48 EDT) Generated by [facility] 5 of 5 ED VISIT SUMMARY Observed: 03/05/2025 9:38 PM Status: C Source: [facility] Visit Overview Visit Overview [place] [id number] [place] [address] [phone] 03/05/2025 Patient: TOR BERMAN Sex: Female : 1990 Age: 34y 03/07/2025 09:56 AM EDT ED Arrival:21:38 03/05/2025 EDT Status:not Recent Travel:no Language:eng Adv Directive:No Isolation Status: Ethnicity:N Fall Risk:no risk Infectious Disease Exposure:no Measurements:5'5" / 165.1 Self-Harm Status:risk Sepsis Screen:negative cm 110.0 lb / 49.9 kg Chief Complaint:ABDOMINAL PAIN, FLANK PAIN, (Dr. Pace, [place]), (Left flank pain. Odorous drainage from left nephrostomy tube insertion site. ), and (LLQ radiating down to vagina. Nephrostomy tubing replaced 2 weeks ago at [place], Urologist Dr. Sanders. Patient is supposed o get left kidney removed in approximately one month.) ALLERGIES Haldol 1 of 4 Visit Overview Penicillins HOME MEDICATIONS lexapro: 20 mg once a day . LORazepam IntensoL 2 mg/mL oral concentrate: 1 mg three times a day as needed. oxycodone 10 mg tablet: 10 mg every 6 hours as needed. zofran: 4 mg every 6 hours as needed. PAST MEDICAL HISTORY / PROBLEMS Anxiety disorder Cancer. (stage 3 cervicle. Currently in remission) Depression Immunizations: up-to-date Renal Failure. (Left kidney only) See nurses notes PAST SURGICAL HISTORY nephrostomy tube SOCIAL HISTORY Smoking status: Yes Alcohol use: No Drug use: Yes ED COURSE MEDICATIONS GIVEN IN EMERGENCY DEPARTMENT 22:32 03/05/25 IV NS 0.9 % 1000 mL 100 mL/hr 22:52 03/05/25 Ondansetron IVP 4 mg 22:53 03/05/25 MORPHine IVP 4 mg 23:26 03/05/25 HYDROmorphone (Dilaudid) IVP 0.5 mg cefTRIAXone (Rocephin) IVPB 1gm/50ml NS 1 g diluted in sodium chloride IVPB 0.9 % 23:39 03/05/25 Minibag+ 50 mL 100 mL/hr 00:56 03/06/25 HYDROmorphone (Dilaudid) IVP 0.5 mg IV SITE INFORMATION 2 of 4 Visit Overview INTAKE OUTPUT REASSESMENT (most recent) 22:51 03/05/25. Ambulatory to room. Patient gowned. ( Patient presents to Er with c/o LLQ and left flank pain. Reports purulent drainage around nephrostomy tube for several days.). GENERAL / NEURO / PSYCH: Alert. Oriented X 4. Appears in no acute distress. RESPIRATORY: Respirations not labored. Breath sounds within normal limits. CVS: Normal sinus rhythm noted. Cardiac rhythm: normal sinus rhythm; (78). Capillary refill less than 2 seconds. GI / : No decreased urination. The patient has had nausea and diarrhea. Abdomen soft. Bowel sounds within normal limits. No emesis noted. Patient is not incontinent of urine. No blood present at the urethral meatus. No pain with urination, frequency of urination, vaginal bleeding or discharge or urgency of urination. No hematuria. SKIN: Skin is warm. VITAL SIGNS First Vitals Last Vitals Temp 21:47 03/05/25 98.1 F Temp 01:05 03/06/25 BP 21:47 03/05/25 105/82 BP 01:05 03/06/25 HR 21:47 03/05/25 99 HR 01:05 03/06/25 75 RR 21:47 03/05/25 16 RR 01:05 03/06/25 O2 Sat 21:47 03/05/25 97% RA O2 Sat 01:05 03/06/25 97% Pain 21:47 03/05/25 7 Pain 01:05 03/06/25 ETCO2 21:47 03/05/25 ETCO2 01:05 03/06/25 GCS 21:47 03/05/25 GCS 01:05 03/06/25 RTS 21:47 03/05/25 RTS 01:05 03/06/25 PROCEDURES NURSING INTERVENTIONS LABS / STUDIES LABS / STUDIES ORDERED CBC w Diff CMP CT KUB (Kidney stone) Culture Wound [CCL] Lactate, Serum 3 of 4 Visit Overview Urinalysis Urine Culture [CCL] LABS / STUDIES PENDING IMPORT CT KUB (KIDNEY STONE PROTOCOL) CLINICAL IMPRESSION ACUTE URINARY TRACT INFECTION WITH CYSTITIS. NO HEMATURIA 4 of 4 ED VITALS FLOW SHEET Observed: 9:38 PM Status: C Source: [facility] Vitals Vital Sign Flow Sheet [facility] [address] [place] [address]. [place] [address] [phone] 03/05/2025 Patient: TOR BERMAN Sex: Female : 1990 Age: 34y Measurements Wt: 49.9 kg, Ht/Aden: 65.0 in, BMI: 18.30 Measured Time BP MAP HR RR O2Sat ETCO2 Temp Pain GCS RTS 01:05 03/06/2025 75 97% 01:04 03/06/2025 112/77 87 71 01:03 03/06/2025 16 97.6 F 2 01:00 03/06/2025 76 97% 00:59 03/06/2025 104/71 79 70 00:35 03/06/2025 88 96% 00:34 03/06/2025 105/68 76 86 00:30 03/06/2025 91 98% 00:25 03/06/2025 82 97% 00:20 03/06/2025 83 96% 00:19 03/06/2025 98/66 74 78 00:15 03/06/2025 79 97% 00:10 03/06/2025 80 96% 00:05 03/06/2025 81 96% 00:04 03/06/2025 101/70 77 75 1 of 2 Vitals Measured Time BP MAP HR RR O2Sat ETCO2 Temp Pain GCS RTS 00:00 03/06/2025 78 97% 23:55 03/05/2025 75 98% 23:50 03/05/2025 75 98% 23:49 03/05/2025 114/77 87 72 23:45 03/05/2025 76 96% 23:40 03/05/2025 77 97% 23:35 03/05/2025 76 97% 23:34 03/05/2025 110/75 81 74 23:30 03/05/2025 80 97% 23:25 03/05/2025 72 98% 23:20 03/05/2025 71 98% 23:20 03/05/2025 111/83 90 75 23:15 03/05/2025 80 98% 23:10 03/05/2025 78 96% 23:05 03/05/2025 79 97% 23:04 03/05/2025 109/76 86 80 23:00 03/05/2025 87 96% 22:55 03/05/2025 86 96% 22:40 03/05/2025 89 97% 22:35 03/05/2025 94 94% 22:34 03/05/2025 114/67 72 89 21:50 03/05/2025 102 97% 21:49 03/05/2025 105/82 88 97 21:47 03/05/2025 105/82 90 99 16 97% RA 98.1 F 7 2 of 2 ED MED ADMINISTRATION DETAIL Observed: 0 03/05/2025 9:38 PM Status: C Source: [facility] Counter Top Maker Medication Administration Record [address] [place] [address] [id number] 03/05/2025 Patient: TOR BERMAN Sex: Female : 1990 Age: 34y MEASUREMENTS: Wt: 49.9 kg, Ht/Aden: 65.0 in, BMI: 18.30 ALLERGIES: Haldol, Penicillins Medication Ordered Medication Administration Date/Time IV NS 0.9 % 1000 22:32 05 IV NS 0.9 % 1000 mL started in bag#1 1000 mL at Started mL at 100 mL/hr 100 mL/hr via Site# 1. Allergies verified and confirmed 5 rights. IV 22:32 03/05/2025 (NOW x1) patency established. IV site checked: no pain, redness, or swelling. Virginia Dior R.N. IV flushed thoroughly pre-medication administration. Information Stopped reviewed with patient including reason for taking this medication, 00:05 03/06/2025 signs of allergic reaction and precautions. Verbalizes Virginia Dior R.N. understanding. - 22:35 Virginia Dior R.N. Scanned 00:05 05 Medication Discontinued: bag #1 completed. Total amount infused: 100 mL. IV patency established. IV site checked: no pain, redness, or swelling. IV flushed thoroughly post-medication administration. - 01:05 Virginia Dior R.N. Ondansetron IVP 4 22:52 05 Ondansetron IVP 4 mg given via Site# 1. Allergies Given mg (NOW x1) verified and confirmed 5 rights. IV patency established. IV site 22:52 03/05/2025 checked: no pain, redness, or swelling. IV flushed thoroughly Virginia Dior R.N. pre-medication administration. Information reviewed with patient Scanned including reason for taking this medication, signs of allergic reaction and precautions. Verbalizes understanding. - 22:52 Virginia Dior R.N. 1 of 3 Counter Top Maker Medication Ordered Medication Administration Date/Time MORPHine IVP 4 22:53 03/05 MORPHine IVP 4 mg given via Site# 1. Allergies Given mg (NOW x1, HIGH verified and confirmed 5 rights. IV patency established. IV site 22:53 03/05/2025 ALERT checked: no pain, redness, or swelling. IV flushed thoroughly Yohana Cornelius) pre-medication administration. Information reviewed with patient Scanned including reason for taking this medication, signs of allergic reaction, precautions and sedative warning. Verbalizes understanding. (LLQ abd left flank pain 8/10). - 22:58 Virginia Dior R.N. HYDROmorphone 23:26 05 HYDROmorphone (Dilaudid) IVP 0.5 mg given via Given (Dilaudid) IVP 0.5 Site# 1. Allergies verified and confirmed 5 rights. IV patency 23:26 03/05/2025 mg (NOW x1, HIGH established. IV site checked: no pain, redness, or swelling. IV NEW [place] flushed thoroughly pre-medication administration. IVP given by E.M.T.-P. MEDICATION) EMT-P. Information reviewed with patient including sedative Scanned warning. Verbalizes understanding. Vitals: 23:20 03/05/2025 BP: 111/83 MAP: 90 mmHg. HR: 75 bpm. - 23:27 Pranav Landin E.M.T.-P. cefTRIAXone 23:39 05 cefTRIAXone (Rocephin) IVPB 1gm/50ml NS 1 g Started (Rocephin) IVPB started at 100 mL/hr diluted in sodium chloride IVPB 0.9 % 23:39 03/05/2025 1gm/50ml NS 1 g Minibag+ 50 mL via Site# 1. Allergies verified and confirmed 5 Crystal Barby, R.N. diluted in sodium rights. IV patency established. IV site checked: no pain, redness, or Stopped chloride IVPB 0.9 % swelling. IV flushed thoroughly pre-medication administration. 00:10 03/06/2025 Minibag+ 50 mL at Information reviewed with patient including reason for taking this Crystal Barby, R.N. 100 mL/hr (NOW x1) medication, signs of allergic reaction and precautions. Verbalizes Scanned understanding. - 23:41 Jamison CorneliusN. 00:10 03/06 Medication Discontinued: IV completed. Total amount infused: 50 mL. IV patency established. IV site checked: no pain, redness, or swelling. IV flushed thoroughly post-medication administration. - 01:04 Virginia Dior R.N. 2 of 3 Counter Top Maker Medication Ordered Medication Administration Date/Time HYDROmorphone 00:56 05 HYDROmorphone (Dilaudid) IVP 0.5 mg given via Given (Dilaudid) IVP 0.5 Site# 1. Allergies verified and confirmed 5 rights. IV patency 00:56 03/06/2025 mg (NOW x1, HIGH established. IV site checked: no pain, redness, or swelling. IV Virginia Dior R.N. ALERT flushed thoroughly pre-medication administration. Information Scanned MEDICATION) reviewed with patient including reason for taking this medication, signs of allergic reaction and precautions. Verbalizes understanding. - 00:59 Jamison CorneliusN. 3 of 3 ED ORDER SHEET (CPOE ONLY) Observed: 01/2025 9:38 PM Status: C Source: [facility] Order Sheet Order Sheet [facility] [address] [place] [address] [id number] 03/05/2025 Patient: TOR BERMAN Sex: Female : 1990 Age: 34y MEASUREMENTS: Wt: 49.9 kg, Ht/Aden: 65.0 in, BMI: 18.30 ALLERGIES: Haldol, Penicillins MEDICATION/IV/DRIP/FLUID ORDERS Order Description Priority Entered Acknowledged Completed IV NS 0.9 %1000 mL at 100 22:06 03/05/2025 22:35 mL/hr (NOW x1) Gonzalez Pineda D.O. 03/05/2025 Virginia Dior R.N. Ondansetron IVP4 mg (NOW x1) 22:33 03/05/2025 22:52 Gonzalez Pineda D.O. 03/05/2025 Virginia Dior R.N. MORPHine IVP4 mg (NOW x1, 22:33 03/05/2025 22:58 HIGH ALERT MEDICATION) Gonzalez Pineda D.O. 03/05/2025 Virginia Dior R.N. Reason for ordering with alerts: Clinical consideration given --22:33 03/05/2025 Gonzalez Pineda D.O. HYDROmorphone (Dilaudid) 23:22 03/05/2025 23:26 23:27 IVP0.5 mg (NOW x1, HIGH Gonzalez Pineda D.O. 03/05/2025 03/05/2025 ALERT MEDICATION) Pranav Landin, Pranav Landin, 1 of 3 Order Sheet E.M.T.-P. E.M.T.-P. Reason for ordering with alerts: Clinical consideration given --23:22 03/05/2025 Gonzalez Pineda D.O. cefTRIAXone (Rocephin) IVPB 23:27 03/05/2025 23:41 1gm/50ml NS1 g diluted in Gonzalez Pineda D.O. 03/05/2025 sodium chloride IVPB 0.9 % Attila Corneliusg+ 50 mL at 100 mL/hr R.N. (NOW x1) Reason for ordering with alerts: Clinical consideration given --23:27 03/05/2025Venkatesh Pineda D.O. HYDROmorphone (Dilaudid) 00:46 03/06/2025 00:59 IVP0.5 mg (NOW x1, HIGH Gonzalez Pineda D.O. 03/06/2025 ALERT MEDICATION) Virginia Dior R.N. Reason for ordering with alerts: Clinical consideration given --00:46 03/06/2025 Gonzalez Pineda D.O. LAB ORDERS Order Description Priority Entered Acknowledged Collected Completed CBC w Diff Stat Stat 22:06 03/05/2025 22:42 03/05/2025 22:42 03/05/2025 Kendra Stanford Crystal Brenner, R.N. R.N. CMP Stat Stat 22:06 03/05/2025 22:42 03/05/2025 22:42 03/05/2025 Kendra Stanford Crystal Brenner, R.N. RFara Lactate, Serum Stat Stat 22:06 03/05/2025 22:42 03/05/2025 22:42 03/05/2025 Kendra Stanford Crystal Brenner, R.NApril RFara Urinalysis Stat Stat 22:06 03/05/2025 22:42 03/05/2025 22:42 03/05/2025 Kendra Stanford Crystal Brenner, R.N. RFara Culture Wound [CCL] Stat 22:06 03/05/2025 22:42 03/05/2025 22:42 03/05/2025 Stat Kendra Stanford Crystal Brenner, 2 of 3 Order Sheet R.N. R.N. Order Comments: 22:06 03/05/2025: (left nephrostomy tube site) Gonzalez Pineda D.O. Urine Culture [CCL] Stat Stat 23:27 03/05/2025 23:30 03/05/2025 23:30 03/05/2025 Kendra Stanford Crystal Brenner, R.N. RFara DIAGNOSTIC STUDY ORDERS Order Description Priority Entered Acknowledged Completed CT KUB (Kidney stone) Stat Stat 22:29 03/05/2025 22:42 23:21 Gonzalez Pineda D.O. 03/05/2025 03/05/2025 Virginia Cornelius R.N. R.N. Reason for Study: Flank Pain STAFF ORDERS Order Description Priority Entered Acknowledged Collected Completed Vital Signs every 30 22:06 03/05/2025 22:42 03/05/2025 22:42 03/05/2025 minutes Kendra Stanford Crystal Brenner, R.N. R.N. On Site Construction Superintendent 22:06 03/05/2025 22:42 03/05/2025 23:07 03/05/2025 Kendra Stanford Crystal Brenner, R.N. R.N. Oxygen titrate to 92% 22:06 03/05/2025 22:42 03/05/2025 22:42 03/05/2025 Kendra Stanford Crystal Brenner, R.N. R.N. [Electronically signed by Gonzalez Pineda D.O. (03/06/2025 01:41 EDT)] 3 of 3 ED SUPER BILL Observed: 03/05/2025 9:38 PM Status: C Source: [address] [address] [id number] 03/05/2025 Patient: TOR BERMAN Sex: Female : 1990 Age: 34y Facility Professional Category Item Description Code Code Quantity Fee Total Drugs Normal Saline 940442 1 $0.00 $0.00 1000cc (753998) Nurse/E/M EMERGENCY 615868 1 $0.00 $0.00 DEPT VISIT HIGH SEVERITYFUNCJ (07003-75) Nurse/IV/IM/Infusions Drip/IVPB initial 984884 1 $0.00 $0.00 (06878) Nurse/IV/IM/Infusions Hydration 830069 1 $0.00 $0.00 additional hour (62466) Nurse/IV/IM/Infusions IVP additional 883791 3 $0.00 $0.00 push (45637) Nurse/IV/IM/Infusions IVP same med 886202 1 $0.00 $0.00 (31 min apart) (69719) Physician/Procedures Peripheral IV 432505 1 $0.00 $0.00 placement (59635) 1 of 2 [facility] Professional Category Item Description Code Code Quantity Fee Total Grand $0.00 Total Providers Gonzalez Pineda D.O. Chief Complaint FLANK PAIN. Principal Diagnosis Acute urinary tract infection with cystitis. No hematuria. ICD-10 Codes N30.90: Cystitis, unspecified without hematuria 2 of 2 ED PHYSICIAN CLINICAL REPORT Observed: 0 03/05/2025 9:38 PM Status: C Source: [facility] Narrative Physician Clinical Narrative [address] [place] [address] [phone] 03/05/2025 21:38:00 Patient: TOR BERMAN Sex: Female : 1990 Age: 34y Disposition: Discharge to Home Disposition Decision Time: 00:52 03/06/2025 Departure Time: 01:11 03/06/2025 Measurements Wt: 49.9 kg, Ht/Aden: 65.0 in, BMI: 18.30 Initial Vital Sign Measured Time BP MAP HR RR O2Sat ETCO2 Temp Pain GCS RTS 21:47 03/05/2025 105/82 90 99 16 97% RA 98.1 F 7 Time Seen: 21:47 03/05/2025. Arrived- By private vehicle. Historian- patient. HISTORY OF PRESENT ILLNESS Chief Complaint: FLANK PAIN. This started yesterday. It is described as located in the left flank. At its maximum, severity described as 7 / 10. When seen in the E.D., severity described as 7 / 10. The patient has had nausea, vomiting. The vomiting has occurred only once and diarrhea. Similar symptoms previously. Patient has had similar symptoms several times. Recent medical care: The patient was seen recently at this facility. REVIEW OF SYSTEMS MUSCULOSKELETAL: No joint pain. The patient has had back pain. NEUROLOGICAL: No headache. CONSTITUTIONAL: No fever or chills. The patient has not had weight loss. : No difficulty with urination, pain 1 of 12 Narrative with urination or urinary frequency. GI: The patient has had constipation. No black stools or hematemesis. SKIN: No skin rash. RESPIRATORY: No difficulty breathing. CVS: No chest pain. PAST HISTORY See nurses notes. Anxiety disorder Cancer: (stage 3 cervicle. Currently in remission) Depression Renal Failure: (Left kidney only) Surgeries: cervicle biopsy nephrostomy tube Medications: lexapro: 20 mg once a day . LORazepam IntensoL 2 mg/mL oral concentrate: 1 mg three times a day as needed. oxycodone 10 mg tablet: 10 mg every 6 hours as needed. zofran: 4 mg every 6 hours as needed. Allergies: Haldol Penicillins SOCIAL HISTORY Heavy tobacco smoker- less than 1 pack per day. Drug use: marijuana. No alcohol use. ADDITIONAL NOTES The nursing notes have been reviewed. PHYSICAL EXAM Appearance: Alert. Oriented X3. No acute distress. Eyes: Pupils equal, round and reactive to light. ENT: Nose normal. Dry mucous membranes present. Pharynx normal. 2 of 12 Narrative Neck: Normal inspection. Neck supple. CVS: Normal heart rate and rhythm. Heart sounds normal. Pulses normal. Respiratory: No respiratory distress. Breath sounds normal. Chest nontender. Abdomen: Soft and nontender. Bowel sounds normal. No mass. Back: Mild CVA tenderness on the left. Skin: Skin warm and dry. No rash. Extremities: Extremities exhibit normal ROM. No lower extremity edema. Neuro: Oriented X 3. No motor deficit. No sensory deficit. LABS, X-RAYS, AND EKG CT Abdomen - Pelvis: left pigtail catheter in good position. Wall thickening of the proximal ureter with mild distention suggest sequelae of infectious/inflammatory process. Multiple echogenic foci about the course of the distal left ureter measuring up to 3 mm at the UVJ. Unremarkable right kidney. Surgically absent uterus. Abdomen - pelvic CT performed without contrast. The study was interpreted by the radiologist. Interpretation time: 23:48 03/06/2025. Laboratory Tests: CBC + DIFF Final BINA: 03/05/2025 22:15:00 EDT MsgRcvd: 03/05/2025 23:05 EDT Lab Test Result Reference Status Received Comments 03/05/2025 23:05 CBC-COMPLETE CBC + DIFF Final EDT BLOOD COUNT 03/05/2025 23:05 WBC 9.2 x 10/UL 4.5 - 10.8 Final EDT 4.05 x 10/UL 03/05/2025 23:05 RBC 4.10 - 5.30 Final Below low normal EDT 03/05/2025 23:05 HEMOGLOBIN 13.7 g/dl 12.0 - 16.0 Final EDT 03/05/2025 23:05 HEMATOCRIT 38.4 % 34.0 - 46.0 Final EDT 3 of 12 Narrative Lab Test Result Reference Status Received Comments 03/05/2025 23:05 MCV 95 fl 80 - 99 Final EDT 34 pg 03/05/2025 23:05 MCH 27 - 33 Final Above high normal EDT 03/05/2025 23:05 MCHC 36 X10 3 32 - 36 Final EDT 03/05/2025 23:05 RDW/CV 13.4 % 12.0 - 15.6 Final EDT 03/05/2025 23:05 PLATELET 347 x10/UL 150 - 450 Final EDT 03/05/2025 23:05 AUTOMATED MPV 6.8 fl 6.6 - 10.5 Final EDT DIFFERENTIAL 03/05/2025 23:05 NEUT % 59.0 % 46.0 - 76.0 Final EDT 03/05/2025 23:05 LYMPH % 30.0 % 20.0 - 45.0 Final EDT 03/05/2025 23:05 MONOS % 7.7 % 0.0 - 10.0 Final EDT 03/05/2025 23:05 EO % 3.0 % 0.0 - 7.0 Final EDT 03/05/2025 23:05 BASO % 0.3 % 0.0 - 2.0 Final EDT 03/05/2025 23:05 Lymph # 2.75 x10/UL 0.80 - 2.80 Final EDT 03/05/2025 23:05 Neut # 5.41 x10/UL 1.50 - 7.10 Final EDT 4 of 12 Narrative Lab Test Result Reference Status Received Comments 03/05/2025 23:05 Green # 0.71 x10/UL 0.20 - 1.00 Final EDT 03/05/2025 23:05 EO # 0.28 x10/UL 0.00 - 0.50 Final EDT 03/05/2025 23:05 Baso # 0.03 x10/UL 0.00 - 0.10 Final EDT 03/05/2025 23:05 MANUAL DIFF N/A New Order EDT 03/05/2025 23:05 MORPHOLOGY N/A New Order EDT LACTATE Final BINA: 03/05/2025 22:24:00 EDT MsgRcvd: 03/05/2025 23:05 EDT Lab Test Result Reference Status Received Comments 03/05/2025 23:05 LACTATE 1.5 mmol/L 0.4 - 2.0 Final EDT URINALYSIS Final BINA: 03/05/2025 22:35:00 EDT MsgRcvd: 03/05/2025 23:23 EDT Lab Test Result Reference Status Received Comments 03/05/2025 23:23 URINALYSIS Final URINALYSIS EDT 03/05/2025 23:23 Specimen Type R New Order EDT NORMAL: 03/05/2025 23:23 Color p.yel Final YELLOW EDT 5 of 12 Narrative Lab Test Result Reference Status Received Comments NORMAL: 03/05/2025 23:23 Clarity [email or web address] Final CLEAR EDT NORMAL: 03/05/2025 23:23 ph 7 Final 5.0-8.0 EDT 30 NORMAL: 03/05/2025 23:23 Protein Final Abnormal NEGATIVE EDT NORMAL: 03/05/2025 23:23 Glucose NORM Final NORMAL EDT NORMAL: 03/05/2025 23:23 Ketone NEG Final NEGATIVE EDT NORMAL: 03/05/2025 23:23 Bilirubin NEG Final NEGATIVE EDT 50 NORMAL: 03/05/2025 23:23 Blood Final Abnormal NEGATIVE EDT NORMAL: 03/05/2025 23:23 Urobilinog NORM Final NORMAL EDT NORMAL: 03/05/2025 23:23 Sp Stem 1.010 Final 1.010-1.030 EDT NORMAL: 03/05/2025 23:23 Nitrite NEG Final NEGATIVE EDT 500 NORMAL: 03/05/2025 23:23 Leukocytes Final Abnormal NEGATIVE EDT 03/05/2025 23:23 Microscopic SEE BELOW Final MICROSCOPIC EDT 03/05/2025 23:23 Wbc 26-50 0-5/hpf Final EDT 6 of 12 Narrative Lab Test Result Reference Status Received Comments 03/05/2025 23:23 Rbc 0-5 0-3/hpf Final EDT 03/05/2025 23:23 Casts NONE Final EDT 03/05/2025 23:23 Crystals NONE Final EDT 03/05/2025 23:23 Amorphous 1+ Final EDT 03/05/2025 23:23 Bacteria 3+ Final EDT 03/05/2025 23:23 Epi Cells FEW Final EDT 03/05/2025 23:23 Mucous NONE Final EDT 03/05/2025 23:23 Yeast NONE Final EDT CMP with eGFR Final BINA: 03/05/2025 22:15:00 EDT MsgRcvd: 03/06/2025 00:06 EDT Lab Test Result Reference Status Received Comments COMPREHENSIVE 03/06/2025 CMP with eGFR Final METABOLIC 00:06 EDT PANEL 03/06/2025 SODIUM 139 mmol/l 136 - 145 Final 00:06 EDT 03/06/2025 POTASSIUM 3.6 mmol/L 3.5 - 5.1 Final 00:06 EDT 7 of 12 Narrative Lab Test Result Reference Status Received Comments 03/06/2025 CHLORIDE 107 mmol/L 98 - 107 Final 00:06 EDT 03/06/2025 CO2 24.2 mmol/L 21.0 - 32.0 Final 00:06 EDT 111 mg/dl 03/06/2025 GLUCOSE Above high 74 - 106 Final 00:06 EDT normal 03/06/2025 BUN 11 mg/dl 7 - 18 Final 00:06 EDT 1.03 mg/dl 03/06/2025 CREATININE Above high 0.55 - 1.02 Final 00:06 EDT normal LIPEMIC 03/06/2025 SAMPLE;MANUAL AST/SGOT 21 U/L 13 - 39 Final 00:06 EDT DILUTION PERFORMED 03/06/2025 ALK PHOS 70 U/L 46 - 116 Final 00:06 EDT 03/06/2025 CALCIUM 8.8 mg/dl 8.5 - 10.1 Final 00:06 EDT TOTAL 03/06/2025 6.4 g/dl 6.4 - 8.2 Final PROTEIN 00:06 EDT 03/06/2025 ALBUMIN 3.5 g/dL 3.4 - 5.0 Final 00:06 EDT 03/06/2025 GLOBULIN 2.9 G/DL 1.5 - 3.8 Final 00:06 EDT 03/06/2025 A/G RATIO 1.2 0.9 - 1.6 Final 00:06 EDT 8 of 12 Narrative Lab Test Result Reference Status Received Comments 03/06/2025 TOTAL BILI 0.3 mg/dl 0.2 - 1.0 Final 00:06 EDT 03/06/2025 B/C RATIO 11 ratio 0 - 30 Final 00:06 EDT 15 U/L 03/06/2025 ALT/SGPT 16 - 63 Final Below low normal 00:06 EDT 03/06/2025 ANION GAP 11 mmol/L 10 - 20 Final 00:06 EDT 03/06/2025 AGE 34 years Final 00:06 EDT 03/06/2025 eGFR >60 ML/MINUTE 60 - 999 Final 00:06 EDT 9 of 12 Narrative Lab Test Result Reference Status Received Comments ACCORDING TO THE NATIONAL KIDNEY DISEASE EDUCATION PROGRAM(NKDE), A NORMAL eGFR IS A VALUE GREATER THAN OR EQUAL TO 60 ML/MIN/1.73 SQ METERS. 03/06/2025 CHRONIC KIDNEY eGFR(AA) >60 ML/MINUTE 60 - 999 Final 00:06 EDT DISEASE: <60mL/MIN/1.73 SQ METERS KIDNEY FAILURE: <15mL/MIN/1.73 SQ METERS THIS TEST SHOULD ONLY BE USED FOR PATIENTS 18 YEARS OF AGE AND OLDER. PROGRESS AND PROCEDURES MEDICAL DECISION MAKING: Ordered tests include complete blood count, chemistries, liver function tests, urinalysis and lactate. The patient has been stable. IV fluids have been given. (34-year-old white female complaining of left flank pain. She states she has had this left flank pain ever since they changed her left nephrostomy tube at [facility] 1 week ago. She has complained of some drainage which is thick around the nephrostomy tube. She is concerned that that could be getting infected. She states her left flank pain is radiating down into left lower quadrant of her abdomen which it usually does not do that. I did see the patient here early last month for left flank pain and she had a pyelonephritis which was mild but we treated 10 of 12 Narrative her with Bactrim and had her follow up with Dr. Hill her kidney doctor. She states they are referring her to a surgeon to have her left kidney removed but they have not secured that actual follow up yet. She states she was turned down by several other urologist because she was "high risk". She has complained of some nausea and she did vomit once today. She has denied any fevers sweats or chills. She presently rates her left flank pain as a 7 on a severity scale 1-10. Describes the pain as sharp in nature. Somewhat worse with movement. Patient states she is now seeing Dr. Gonzalez Sanders from [facility]. Had been seeing dr chavez but he is an intventional radiologist that put her nephrostomy tube in. So asked patient to follow up with Dr. Sanders in 3-4 days for the urine culture results. In the meantime I did write her a prescription for Keflex 500 mg 4 times a day times 10 days. Patient was given a g of Rocephin here IV.). Disposition: Condition: good. Disposition Decision Time: 00:52 03/06/2025. Patient discharged to Home. Discharged in good condition. Discharge decision based on the following: patient's condition is stable; patient is ambulatory; patient's pain is controlled; patient's exam is stable; moderately abnormal test results; stable condition on multiple repeat evaluations; social support is adequate; transportation is available; follow-up is available; clinical impression is consistent with outpatient treatment. CLINICAL IMPRESSION Acute urinary tract infection with cystitis. No hematuria. DISCHARGE INSTRUCTIONS Drink plenty of fluids. (Take medication as prescribed. Urine culture is pending. Wound culture is also pending.). Warnings: GENERAL WARNINGS: Return or contact your physician immediately if your condition worsens or changes unexpectedly, if not improving as expected, or if other problems arise. Prescription Medications: oxycodone-acetaminophen 5 mg-325 mg tablet: Take 1 tablet by mouth every six hours as needed for pain for 2 days, dispense 8 tablet. Refills 0. Pharmacy: [facility] - [address] [place] [address]. cephalexin 500 mg tablet: Take 1 tablet by mouth four times a day for 10 days, dispense 40 tablet. Refills 0. Pharmacy: [facility] - [address] [place] [address]. of 12 Narrative ondansetron 4 mg disintegrating tablet: Take 1 tablet on tongue every eight hours for nausea/vomiting for 5 days, dispense 15 tablet. Refills 0. Pharmacy: [facility] - [address] [place] [address]. Understanding of the discharge instructions verbalized by patient. Follow-up with: Madeline Chavez, interventional radiology, Phone: [phone], [address], [place] [address]. Follow up in four days. Call for an appointment. Reason for referral: evaluation and treatment. Summary of care provided to patient. Gonzalez Sanders MD, FACS, [facility], Urology, Phone: [phone], Fax: [phone], [address] [address]. Follow up in three days. Call for an appointment. Reason for referral: evaluation and treatment. (Electronically signed by Gonzalez Pineda D.O. 03/06/25 01:41:23 EDT) Addendum Prescription Medication: oxycodone-acetaminophen 5 mg-325 mg tablet: Take 1 tablet by mouth every six to eight hours as needed for pain for 3 days, dispense 10 tablet. Refills 0. Pharmacy: [facility] - [address] [place] [address]. -- 03/07/25 09:50:36 EDT Gonzalez Pineda D.O. Generated by [facility] IR NEPHROSTOMY EXCHANGE Observed: 2024 8:00 AM Status: F Source: [facility] ORIGINAL PROCEDURE: 1. Percutaneous left nephrostomy tube exchange with fluoroscopy CLINICAL STATEMENT: History of cervical cancer with left ureteral obstruction RESTORATION OFFICER: Tadeo Leija PA-C MATERIALS: 12 Fr X [...] using 2 identifiers, confirming site and side. Tie Buyer image with contrast injection demonstrates stable appearance [...] contents of this report. Interpreted by: Madeline Chavez MD Preliminary Report By: Tadeo Leija PA-C Electronically signed By Madeline Chavez MD Dictated Date: 02/16/2025 4:44:54 PM Prelim Date: 02/16/2025 4:47:28 PM Sign Date: 02/16/2025 4:47:28 PM Ordering Provider: PINA FREGOSO Collected: 02/16/2025 7:59 AM Status: F Source: [facility] Order Comment: hemolyzed 02/01 07:26:12 EDT TYPE CODE TESTS RESULT OUT OF RANGE REFERENCE UNITS LAB GLU(LOINC) Glucose Level 89 70-110 mg/dL LAB NA(LOINC) Sodium Level 138 136-145 mEq/L LAB K(LOINC) Potassium Level 3.7 3.5-5.0 mEq/L LAB CL(LOINC) Chloride 106 98-110 mEq/L LAB CO2(LOINC) CO2 27 22-32 mEq/L LAB EBAL(LOINC) Electrolyte Balance 5.0 4.0-15.0 mEq/L LAB BUN(LOINC) BUN 7.0 Low 8.0-22.0 mg/dL LAB CRE(LOINC) Creatinine Lvl (s) 0.80 0.50-1.20 mg/dL Result Comment: Testing perf ormed on [employer] Mobile analyzer using enzymatic creatinine methodology. LAB BC(LOINC) BUN/Creatinine Ratio 8.8 Low 10.0-22.0 ratio LAB CA(LOINC) Calcium Lvl 10.0 8.7-10.4 mg/dL Performed By: #### PRAKASH SIDDIQUI EU, BMP, GFR, CBC #### [address] [address] .GFR Collected: 02/16/2025 7:59 AM Status: F Source: [facility] TYPE CODE TESTS RESULT OUT OF RANGE REFERENCE UNITS LAB eGFR(LOINC) Estimated Glomerular Filtration Rate 98 ml/min/1. 73sqm Result Comment: Stages of Chronic Kidney Disease [...] calculate the eGFR results. Performed By: #### PRAKASH SIDDIQUI EU, BMP, GFR, CBC #### [address] [address] CBC Collected: 6:58 AM Status: F Source: [facility] TYPE CODE TESTS RESULT OUT OF RANGE REFERENCE UNITS LAB WBC(LOINC) WBC 7.3 4.5-10.8 10 3/mcL LAB RBCCT(LOINC) RBC 4.44 4.10-5.30 10 6/mcL LAB HGB(LOINC) Hgb 14.6 12.0-16.0 G/dL LAB HCT(LOINC) Hct 43.1 34.0-46.0 % LAB MCV(LOINC) MCV 97.2 80.0-99.0 fL LAB MCH(LOINC) MCH 32.9 27.0-33.0 pg LAB MCHC(LOINC) MCHC 33.9 32.0-36.0 G/dL LAB RDW(LOINC) RDW 14.1 11.5-15.5 % LAB PLT(LOINC) Platelet 296 150-450 10 3/mcL LAB MPV(LOINC) MPV 7.5 6.6-10.5 fL Performed By: #### CHEN, AN EU, BMP, GFR, CBC #### [address] [address] .AUTO DIFF Collected: 02/16/2025 6:58 AM Status: F Source: [facility] TYPE CODE TESTS RESULT OUT OF RANGE REFERENCE UNITS LAB GREGORIA(LOINC) Neutrophil % 58.6 50.0-75.0 % LAB LYM(LOINC) Lymphocyte % 28.4 20.0-40.0 % LAB MON(LOINC) Monocyte % 8.2 2.0-13.0 % LAB EO(LOINC) Eosinophil % 4.1 0.0-6.0 % LAB BAS(LOINC) Basophil % 0.7 0.0-2.5 % LAB ABLYM(LOINC) Lymphocyte, Absolute 2.1 0.9-4.3 10 3/mcL LAB MIKEY(LOINC) Monocyte, Absolute 0.6 0.1-1.4 10 3/mcL LAB AEOS(LOINC) Eosinophil, Absolute 0.3 0.0-0.7 10 3/mcL LAB ABAS(LOINC) Basophil, Absolute 0.1 0.0-0.3 10 3/mcL Performed By: #### CHEN, AN EU, BMP, GFR, CBC #### [address] [address] .NEUABS Collected: 6:58 AM Status: F Source: [facility] TYPE CODE TESTS RESULT OUT OF RANGE REFERENCE UNITS LAB ANEU(LOINC) Neutrophil, Absolute 4.3 2.3-8.1 10 3/mcL Performed By: #### CHEN, AN EU, BMP, GFR, CBC #### [address] [address] [address] ABDOMEN/PELVIS WO Observed: 8:47 AM Status: F Source: [place] [address] Patient: ANTONELLA TOR L. Phone#: : 1990 Age: 34 Gender: F Pt. Type: ER Account: [id number] Location: 052 Ordering: GONZALEZ PINEDA Exam Date: 02/10/2025/2:00 Family Phys: Charge Code: [id number] Physician: [place] Order #: [id number] Dose#: [id number] PROCEDURE: CT ABDOMEN/PELVIS WITHOUT CONTRAST COMPARISON: [facility], CT, ABDOMEN/PELVIS W CON, 05/17/2024, 19:58. [facility], CT, ABDOMEN/PELVIS W/O CON, 08/31/2024, 7:18. [facility], CT, ABDOMEN/PELVIS W CON, 12/10/2024, 5:07. INDICATIONS: Nephrostomy infection. TECHNIQUE: CT images were created without intravenous contrast. All CT scans at this facility use dose modulation, iterative reconstruction, and/or weight based dosing when appropriate to reduce radiation dose to as low as reasonably achievable. IV CONTRAST: No IV contrast used,0ml TOTAL DOSE: 4.70 CTDIvol(mGy) FINDINGS: LIVER: The BILIARY: Normal. No visible dilatation or calcification. PANCREAS: Normal. No lesion, fluid collection, ductal dilatation, or atrophy. SPLEEN: Normal. No enlargement or focal lesion. KIDNEYS: The right kidney is normal. The left-sided nephrostomy tube is present. There is no evidence of hydronephrosis. There is mild periureteral fat stranding at the ureteropelvic junction. Calcifications in left pelvis are unchanged in position since previous examinations, phleboliths versus distal ureteral calculi.. ADRENALS: Normal. No mass or enlargement. AORTA/VASCULAR: Normal. No aneurysm. RETROPERITONEUM: Normal. No mass or adenopathy. BOWEL/MESENTERY: Normal. No visible mass, obstruction, or bowel wall thickening. ABDOMINAL WALL: Normal. No mass or hernia. URINARY BLADDER: Normal. No visible focal wall thickening, lesion, or calculus. PELVIC NODES: Normal. No adenopathy. PELVIC ORGANS: The uterus is absent. BONES: Normal. No bony lesion or fracture. LUNG BASES: Normal. No visible pulmonary or pleural disease. OTHER: Negative. Continued Report - Page 2 of 2 Patient: ILEANA BERMANL Royce Phone#: : [phone] Age: 34 Gender: F Pt. Type: ER Account: [id number] Location: 052 Ordering: GONZALEZ PINEDA Exam Date: 02/10/2025/2:00 Family Phys: Charge Code: [id number] Physician: Ingham Order #: [id number] Dose#: [id number] CONCLUSION: 1. Left percutaneous nephrostomy tube is present with the correlate at the renal pelvis. There is minimal periureteral fat stranding at the ureteropelvic junction. Pyelonephritis cannot be excluded. There is no evidence of abscess Dictated by: Cynthia Douglas MD on 02/10/2025 at 8:38 Approved by: Cynthia Douglas MD on 02/10/2025 at 8:47 URINALYSIS Collected: 2:45 AM Status: F Source: [facility] TYPE CODE TESTS RESULT OUT OF RANGE REFERENCE UNITS LAB URINALYSIS([facility] NC) URINALYSIS Result Comment: URINALYSIS LAB Specimen Type(LOINC) Specimen Type R LAB Color(LOINC) Color yellow NORMAL: YELLOW LAB Clarity(LOINC) Clarity sl.cloudy RAJIV L: CLEAR LAB ph(LOINC) ph 8 NORMAL: 5.0-8.0 LAB Protein(LOINC) Protein 100 Abnormal RAJIV L: NEGATIVE LAB Glucose(LOINC) Glucose NORM RAJIV L: NORMAL LAB Ketone(LOINC) Ketone NEG NORMAL : NEGATIVE LAB Bilirubin(LOIN C) Bilirubin NEG NORMAL: NEGATIVE LAB Blood(LOINC) Blood 250 Abnormal NORMAL: NEGATIVE LAB Urobilinog(ISA[facility] NC) Urobilinog NORM NORMAL: NORMAL LAB Sp Stem(LOINC) Sp Stem 1.015 NORMAL: 1.010-1.030 LAB Nitrite(LOINC) Nitrite NEG RAJIV L: NEGATIVE LAB Leukocytes(ISAIAH NC) Leukocytes 500 Abnormal NORMAL: NEGATIVE LAB Microscopic(LO INC) Microscopic SEE BELOW Result Comment: MICROSCOPIC LAB Wbc(LOINC) Wbc >50 0-5/hpf LAB Rbc(LOINC) Rbc TNTC 0-3/hpf LAB Casts(LOINC) Casts NONE LAB Crystals(LOINC ) Crystals NONE LAB Amorphous(LOIN C) Amorphous NONE LAB Bacteria(LOINC ) Bacteria 3+ LAB Epi Cells(LOINC) Epi Cells OCC LAB Mucous(LOINC) Mucous NONE LAB Yeast(INC) Yeast NONE Performed By: #### [id number] ## ## [facility],[address] [place], [place] [id number] URINE CULTURE [CCL] Observed: 02/10/2025 2:45 AM Status: F Source: [facility] URCUL See Results Below See Below CULTURE, URINE MIXED MICROBIOTA >=100,000 CFU/ml Mixed microbiota No further workup. Mixed microbiota can be due to???urine???contamination with s SOURCE: Urine, Hilario Catheter [facility] [address] [place] [address] Joao Alvarenga III, M.D. [id number] Performed By: #### [id number] ## ## [address] [id number] CMP WITH EGFR Collected: 1:39 AM Status: F Source: [facility] TYPE CODE TESTS RESULT OUT OF RANGE REFERENCE UNITS LAB CMP with eGFR(LOINC) CMP with eGFR Result Comment: COMPREHENSIV E METABOLIC PANEL LAB SODIUM(LOINC) SODIUM 139 136 - 145 mmol/l LAB POTASSIUM(LOIN C) POTASSIUM 3.4 Low 3.5 - 5.1 mmol/L LAB CHLORIDE(LOINC ) CHLORIDE 100 98 - 107 mmol/L LAB CO2(INC) CO2 25.6 21.0 - 32.0 mmol/L LAB GLUCOSE(LOINC) GLUCOSE 72 Low 74 - 106 mg/dl LAB BUN(LOINC) BUN 13 7 - 18 mg/dl LAB CREATININE(ISAIAH NC) CREATININE 1.10 High 0.55 - 1.02 mg/dl LAB AST/SGOT(LOINC ) AST/SGOT 11 Low 13 - 39 U/L LAB ALK PHOS(LOINC) ALK PHOS 73 46 - 116 U/L LAB CALCIUM(LOINC) CALCIUM 9.5 8.5 - 10.1 mg/dl LAB TOTAL PROTEIN(LOINC) TOTAL PROTEIN 7.2 6.4 - 8.2 g/dl LAB ALBUMIN(LOINC) ALBUMIN 4.0 3.4 - 5.0 g/dL LAB GLOBULIN(LOINC ) GLOBULIN 3.2 1.5 - 3.8 G/DL LAB A/G RATIO(LOINC) A/G RATIO 1.3 0.9 - 1.6 LAB TOTAL BILI(LOINC) TOTAL BILI 0.6 0.2 - 1.0 mg/dl LAB B/C RATIO(LOINC) B/C RATIO 12 0 - 30 ratio LAB ALT/SGPT(LOINC ) ALT/SGPT 13 Low 16 - 63 U/L LAB ANION GAP(LOINC) ANION GAP 17 10 - 20 mmol/L LAB AGE(LOINC) AGE 34 years LAB eGFR(LOINC) eGFR 56 Low 60 - 999 ML/MINUT E LAB eGFR(AA)(LOINC ) eGFR(AA) >60 60 - 999 ML/MINUT E Result Comment: ACCORDING TO THE NATIONAL KIDNEY DISEASE EDUCATION PROGRAM(NKDE), A NORMAL eGFR IS A VALUE GREATER THAN OR EQUAL TO 60 ML/MIN/1.73 SQ METERS. CHRONIC KIDNEY DISEASE: <60mL/MIN/1.73 SQ METERS KIDNEY FAILURE: <15mL/MIN/1.73 SQ METERS THIS TEST SHOULD ONLY BE USED FOR PATIENTS 18 YEARS OF AGE AND OLDER. Performed By: #### [id number] ## ## [place] [id number] LACTATE Collected: 1:39 AM Status: F Source: [facility] TYPE CODE TESTS RESULT OUT OF RANGE REFERENCE UNITS LAB LACTATE(INC) LACTATE 0.7 0.4 - 2.0 mmol/L Performed By: #### [id number] ## ## [place] [id number] CBC + DIFF Collected: 1:39 AM Status: F Source: [facility] TYPE CODE TESTS RESULT OUT OF RANGE REFERENCE UNITS LAB CBC + DIFF(LOINC) CBC + DIFF Result Comment: CBC-COMPLETE BLOOD COUNT LAB WBC(LOINC) WBC 10.9 High 4.5 - 10.8 x 10EE3/UL LAB RBC(LOINC) RBC 4.29 4.10 - 5.30 x 10EE6/UL LAB HEMOGLOBIN([facility]IA[facility] NC) HEMOGLOBIN 14.7 12.0 - 16.0 g/dl LAB HEMATOCRIT(ISAIA[facility] NC) HEMATOCRIT 41.1 34.0 - 46.0 % LAB MCV(LOINC) MCV 96 80 - 99 fl LAB MCH(LOINC) MCH 34 High 27 - 33 pg LAB MCHC(LOINC) MCHC 36 32 - 36 X10 3 LAB RDW/CV(LOINC) RDW/CV 13.3 12.0 - 15.6 % LAB PLATELET(LOINC ) PLATELET 320 150 - 450 x10EE3/UL LAB MPV(LOINC) MPV 6.6 6.6 - 10.5 fl Result Comment: AUTOMATED DI FFERENTIAL LAB NEUT %(LOINC) NEUT % 63.5 46.0 - 76.0 % LAB LYMPH %(LOINC) LYMPH % 29.2 20.0 - 45.0 % LAB MONOS %(LOINC) MONOS % 5.9 0.0 - 10.0 % LAB EO %(LOINC) EO % 1.1 0.0 - 7.0 % LAB BASO %(LOINC) BASO % 0.3 0.0 - 2.0 % LAB Lymph #(LOINC) Lymph # 3.18 High 0.80 - 2.80 x10EE 3/UL LAB Neut #(LOINC) Neut # 6.90 1.50 - 7.10 x10EE3 /UL LAB Green #(LOINC) Green # 0.64 0.20 - 1.00 x10EE3 /UL LAB EO #(LOINC) EO # 0.11 0.00 - 0.50 x10EE3/U L LAB Baso #(LOINC) Baso # 0.03 0.00 - 0.10 x10EE3 /UL LAB MANUAL DIFF(LOINC) MANUAL DIFF N/A LAB MORPHOLOGY([facility] NC) MORPHOLOGY N/A Performed By: #### [id number] ## ## [facility],[address] [place] [address] URINALYSIS Collected: 5 1:39 AM Status: F Source: [facility] TYPE CODE TESTS RESULT OUT OF RANGE REFERENCE UNITS LAB URINALYSIS([facility] NC) URINALYSIS Result Comment: URINALYSIS LAB Specimen Type(LOINC) Specimen Type R LAB Color(LOINC) Color steven NORMAL: YELLOW LAB Clarity(LOINC) Clarity sl.cloudy RAJIV L: CLEAR LAB ph(LOINC) ph 5 NORMAL: 5.0-8.0 LAB Protein(LOINC) Protein 30 Abnormal RAJIV L: NEGATIVE LAB Glucose(LOINC) Glucose NORM RAJIV L: NORMAL LAB Ketone(LOINC) Ketone NEG NORMAL : NEGATIVE LAB Bilirubin(LOIN C) Bilirubin NEG NORMAL: NEGATIVE LAB Blood(LOINC) Blood 25 Abnormal NORMAL: NEGATIVE LAB Urobilinog(ISAIA[facility] NC) Urobilinog 1 Abnormal NORMAL: NORMAL LAB Sp Stem(LOINC) Sp Stem 1.025 NORMAL: 1.010-1.030 LAB Nitrite(LOINC) Nitrite NEG RAJIV L: NEGATIVE LAB Leukocytes(ISAIA[facility] NC) Leukocytes NEG NORMAL: NEGATIVE LAB Microscopic(LO INC) Microscopic SEE BELOW Result Comment: MICROSCOPIC LAB Wbc(LOINC) Wbc 1-5 0-5/hpf LAB Rbc(LOINC) Rbc 0-5 0-3/hpf LAB Casts(LOINC) Casts NONE LAB Crystals(LOINC ) Crystals NONE LAB Amorphous(LOIN C) Amorphous NONE LAB Bacteria(LOINC ) Bacteria TRACE LAB Epi Cells(LOINC) Epi Cells MANY LAB Mucous(LOINC) Mucous NONE LAB Yeast(LOINC) Yeast NONE Performed By: #### [id number] ## ## [place] [id number] URINE CULTURE [CCL] Observed: 02/10/2025 1:39 AM Status: F Source: [facility] URCUL See Results Below See Below CULTURE, URINE NORMAL UROGENITAL TOM <10,000 CFU/ml Normal urogenital tom SOURCE: Urine (Nonspecific) [facility] [address] [place] [address] Joao Alvarenga III, M.D. [id number] Performed By: #### [id number] ## ## [place] [id number] ED PHYSICIAN CLINICAL REPORT Observed: 0 02/10/2025 1:14 AM Status: F Source: [facility] Narrative Phys[place] [address] [id number] 02/10/2025 01:14:00 Patient: TOR BERMAN Sex: Female : 1990 Age: 34y Disposition: Discharge Disposition Decision Time: 05:02/10/2025 Departure Time: :02/10/2025 Measurements Wt: 68.0 kg, Ht/Aden: 66.0 in, BMI: 24.21 Initial Vital Sign Measured Time BP MAP HR RR O2Sat ETCO2 Temp Pain GCS RTS 01:27 02/10/2025 140/93 109 89 18 99% 98.2 F 9 Time Seen: 01:02/10/2025. Arrived- By private vehicle. Historian- patient. HISTORY OF PRESENT ILLNESS Chief Complaint: DYSURIA. LEFT FLANK PAIN. This started today and still present. The symptoms are described as moderate. The patient has had flank pain. The patient has had pain with urination. Similar symptoms previously. Patient has had similar symptoms several times. Recent medical care: ( Scheduled to have her left nephrostomy tube changed on February 17 [address] Hill in [place].). Not recently seen/assessed. REVIEW OF SYSTEMS 1 of 13 Narrative CVS: No chest pain. MUSCULOSKELETAL: No joint pain. GI: No nausea, vomiting, diarrhea or black stools. NEUROLOGICAL: No headache. CONSTITUTIONAL: No fever or chills. EYES: No eye discomfort. SKIN: No skin rash. ENDO/HEME/LYMPH: No enlarged lymph nodes. RESPIRATORY: No cough or difficulty breathing. THROAT: No sore throat. Status: Not . PAST HISTORY See nurses notes. Cancer: (stage 3 cervicle) Renal Failure Surgeries: cervicle biopsy nephrostomy tube Medications: lexapro: 20 mg once a day . LORazepam IntensoL 2 mg/mL oral concentrate: 1 mg three times a day as needed. oxycodone 10 mg tablet: every 6 hours. zofran: 4 mg every 6 hours as needed. Allergies: Haldol Penicillins SOCIAL HISTORY Smoker- current status unknown. Regular vaping. Drug use: marijuana. No alcohol use. ADDITIONAL NOTES The nursing notes have been reviewed. PHYSICAL EXAM Appearance: Alert. Oriented X3. No acute distress. HEENT: Normal external inspection. 2 of 13 Narrative Neck: Neck supple. CVS: Heart sounds normal. Respiratory: No respiratory distress. Breath sounds normal. Chest nontender. Abdomen: Soft. Moderate tenderness in the left side of the abdomen with guarding present. No rebound tenderness. Bowel sounds normal. No mass. No rebound tenderness. Back: Moderate CVA tenderness on the left. (Nephrostomy tube noted left flank. Small amount of thickened drainage noted around the tube. Cultured. No erythema noted). Skin: Skin warm and dry. No rash. Extremities: Extremities nontender. No lower extremity edema. Neuro: Oriented X 3. Mood/affect normal. No motor deficit. No sensory deficit. LABS, X-RAYS, AND EKG Pelvic CT: Mild stranding around the left kidney. Mild stranding along the margins of the proximal left ureter. Possible underlying left sided pyelonephritis. No abscess formation. No air in the soft tissues. No hematoma. Normal appendix is well seen. There is a left percutaneous nephrostomy tube with the pigtail segment of the catheter located within the left renal pelvis. The study was interpreted by the radiologist. Interpretation time: 03:05 02/10/2025. Laboratory Tests: CBC + DIFF Final BINA: 02/10/2025 01:39:00 EDT MsgRcvd: 02/10/2025 02:06 EDT Lab Test Result Reference Status Received Comments 02/10/2025 02:06 CBC-COMPLETE CBC + DIFF Final EDT BLOOD COUNT 10.9 x 10/UL 02/10/2025 02:06 WBC 4.5 - 10.8 Final Above high normal EDT 02/10/2025 02:06 RBC 4.29 x 10/UL 4.10 - 5.30 Final EDT 02/10/2025 02:06 HEMOGLOBIN 14.7 g/dl 12.0 - 16.0 Final EDT 3 of 13 Narrative Lab Test Result Reference Status Received Comments 02/10/2025 02:06 HEMATOCRIT 41.1 % 34.0 - 46.0 Final EDT 02/10/2025 02:06 MCV 96 fl 80 - 99 Final EDT 34 pg 02/10/2025 02:06 MCH 27 - 33 Final Above high normal EDT 02/10/2025 02:06 MCHC 36 X10 3 32 - 36 Final EDT 02/10/2025 02:06 RDW/CV 13.3 % 12.0 - 15.6 Final EDT 02/10/2025 02:06 PLATELET 320 x10/UL 150 - 450 Final EDT 02/10/2025 02:06 AUTOMATED MPV 6.6 fl 6.6 - 10.5 Final EDT DIFFERENTIAL 02/10/2025 02:06 NEUT % 63.5 % 46.0 - 76.0 Final EDT 02/10/2025 02:06 LYMPH % 29.2 % 20.0 - 45.0 Final EDT 02/10/2025 02:06 MONOS % 5.9 % 0.0 - 10.0 Final EDT 02/10/2025 02:06 EO % 1.1 % 0.0 - 7.0 Final EDT 02/10/2025 02:06 BASO % 0.3 % 0.0 - 2.0 Final EDT 3.18 x10/UL 02/10/2025 02:06 Lymph # 0.80 - 2.80 Final Above high normal EDT 4 of 13 Narrative Lab Test Result Reference Status Received Comments 02/10/2025 02:06 Neut # 6.90 x10/UL 1.50 - 7.10 Final EDT 02/10/2025 02:06 Green # 0.64 x10/UL 0.20 - 1.00 Final EDT 02/10/2025 02:06 EO # 0.11 x10/UL 0.00 - 0.50 Final EDT 02/10/2025 02:06 Baso # 0.03 x10/UL 0.00 - 0.10 Final EDT 02/10/2025 02:06 MANUAL DIFF N/A New Order EDT 02/10/2025 02:06 MORPHOLOGY N/A New Order EDT URINALYSIS Final BINA: 02/10/2025 01:39:00 EDT MsgRcvd: 02/10/2025 02:23 EDT Lab Test Result Reference Status Received Comments 02/10/2025 02:23 URINALYSIS Final URINALYSIS EDT 02/10/2025 02:23 Specimen Type R New Order EDT NORMAL: 02/10/2025 02:23 Color steven Final YELLOW EDT NORMAL: 02/10/2025 02:23 Clarity sl.cloudy Final CLEAR EDT NORMAL: 02/10/2025 02:23 ph 5 Final 5.0-8.0 EDT 5 of 13 Narrative Lab Test Result Reference Status Received Comments 30 NORMAL: 02/10/2025 02:23 Protein Final Abnormal NEGATIVE EDT NORMAL: 02/10/2025 02:23 Glucose NORM Final NORMAL EDT NORMAL: 02/10/2025 02:23 Ketone NEG Final NEGATIVE EDT NORMAL: 02/10/2025 02:23 Bilirubin NEG Final NEGATIVE EDT 25 NORMAL: 02/10/2025 02:23 Blood Final Abnormal NEGATIVE EDT 1 NORMAL: 02/10/2025 02:23 Urobilinog Final Abnormal NORMAL EDT NORMAL: 02/10/2025 02:23 Sp Stem 1.025 Final 1.010-1.030 EDT NORMAL: 02/10/2025 02:23 Nitrite NEG Final NEGATIVE EDT NORMAL: 02/10/2025 02:23 Leukocytes NEG Final NEGATIVE EDT 02/10/2025 02:23 Microscopic SEE BELOW Final MICROSCOPIC EDT 02/10/2025 02:23 Wbc 1-5 0-5/hpf Final EDT 02/10/2025 02:23 Rbc 0-5 0-3/hpf Final EDT 02/10/2025 02:23 Casts NONE Final EDT 6 of 13 Narrative Lab Test Result Reference Status Received Comments 02/10/2025 02:23 Crystals NONE Final EDT 02/10/2025 02:23 Amorphous NONE Final EDT 02/10/2025 02:23 Bacteria TRACE Final EDT 02/10/2025 02:23 Epi Cells MANY Final EDT 02/10/2025 02:23 Mucous NONE Final EDT 02/10/2025 02:23 Yeast NONE Final EDT CMP with eGFR Final BINA: 02/10/2025 01:39:00 EDT MsgRcvd: 02/10/2025 02:47 EDT Lab Test Result Reference Status Received Comments COMPREHENSIVE 02/10/2025 CMP with eGFR Final METABOLIC 02:47 EDT PANEL 02/10/2025 SODIUM 139 mmol/l 136 - 145 Final 02:47 EDT 3.4 mmol/L 02/10/2025 POTASSIUM 3.5 - 5.1 Final Below low normal 02:47 EDT 02/10/2025 CHLORIDE 100 mmol/L 98 - 107 Final 02:47 EDT 02/10/2025 CO2 25.6 mmol/L 21.0 - 32.0 Final 02:47 EDT 7 of 13 Narrative Lab Test Result Reference Status Received Comments 72 mg/dl 02/10/2025 GLUCOSE 74 - 106 Final Below low normal 02:47 EDT 02/10/2025 BUN 13 mg/dl 7 - 18 Final 02:47 EDT 1.10 mg/dl 02/10/2025 CREATININE Above high 0.55 - 1.02 Final 02:47 EDT normal 11 U/L 02/10/2025 AST/SGOT 13 - 39 Final Below low normal 02:47 EDT 02/10/2025 ALK PHOS 73 U/L 46 - 116 Final 02:47 EDT 02/10/2025 CALCIUM 9.5 mg/dl 8.5 - 10.1 Final 02:47 EDT TOTAL 02/10/2025 7.2 g/dl 6.4 - 8.2 Final PROTEIN 02:47 EDT 02/10/2025 ALBUMIN 4.0 g/dL 3.4 - 5.0 Final 02:47 EDT 02/10/2025 GLOBULIN 3.2 G/DL 1.5 - 3.8 Final 02:47 EDT 02/10/2025 A/G RATIO 1.3 0.9 - 1.6 Final 02:47 EDT 02/10/2025 TOTAL BILI 0.6 mg/dl 0.2 - 1.0 Final 02:47 EDT 02/10/2025 B/C RATIO 12 ratio 0 - 30 Final 02:47 EDT 13 U/L 02/10/2025 ALT/SGPT 16 - 63 Final Below low normal 02:47 EDT 8 of 13 Narrative Lab Test Result Reference Status Received Comments 02/10/2025 ANION GAP 17 mmol/L 10 - 20 Final 02:47 EDT 02/10/2025 AGE 34 years Final 02:47 EDT 56 ML/MINUTE 02/10/2025 eGFR 60 - 999 Final Below low normal 02:47 EDT ACCORDING TO THE NATIONAL KIDNEY DISEASE EDUCATION PROGRAM(NKDE), A NORMAL eGFR IS A VALUE GREATER THAN OR EQUAL TO 60 ML/MIN/1.73 SQ METERS. 02/10/2025 CHRONIC KIDNEY eGFR(AA) >60 ML/MINUTE 60 - 999 Final 02:47 EDT DISEASE: <60mL/MIN/1.73 SQ METERS KIDNEY FAILURE: <15mL/MIN/1.73 SQ METERS THIS TEST SHOULD ONLY BE USED FOR PATIENTS 18 YEARS OF AGE AND OLDER. 9 of 13 Narrative LACTATE Final BINA: 02/10/2025 01:39:00 EDT MsgRcvd: 02/10/2025 02:47 EDT Lab Test Result Reference Status Received Comments 02/10/2025 02:47 LACTATE 0.7 mmol/L 0.4 - 2.0 Final EDT URINALYSIS Final BINA: 02/10/2025 02:45:00 EDT MsgRcvd: 02/10/2025 03:38 EDT Lab Test Result Reference Status Received Comments 02/10/2025 03:38 URINALYSIS Final URINALYSIS EDT 02/10/2025 03:38 Specimen Type R New Order EDT NORMAL: 02/10/2025 03:38 Color yellow Final YELLOW EDT NORMAL: 02/10/2025 03:38 Clarity sl.cloudy Final CLEAR EDT NORMAL: 02/10/2025 03:38 ph 8 Final 5.0-8.0 EDT 100 NORMAL: 02/10/2025 03:38 Protein Final Abnormal NEGATIVE EDT NORMAL: 02/10/2025 03:38 Glucose NORM Final NORMAL EDT NORMAL: 02/10/2025 03:38 Ketone NEG Final NEGATIVE EDT NORMAL: 02/10/2025 03:38 Bilirubin NEG Final NEGATIVE EDT 10 of Narrative Lab Test Result Reference Status Received Comments 250 NORMAL: 02/10/2025 03:38 Blood Final Abnormal NEGATIVE EDT NORMAL: 02/10/2025 03:38 Urobilinog NORM Final NORMAL EDT NORMAL: 02/10/2025 03:38 Sp Stem 1.015 Final 1.010-1.030 EDT NORMAL: 02/10/2025 03:38 Nitrite NEG Final NEGATIVE EDT 500 NORMAL: 02/10/2025 03:38 Leukocytes Final Abnormal NEGATIVE EDT 02/10/2025 03:38 Microscopic SEE BELOW Final MICROSCOPIC EDT 02/10/2025 03:38 Wbc >50 0-5/hpf Final EDT 02/10/2025 03:38 Rbc TNTC 0-3/hpf Final EDT 02/10/2025 03:38 Casts NONE Final EDT 02/10/2025 03:38 Crystals NONE Final EDT 02/10/2025 03:38 Amorphous NONE Final EDT 02/10/2025 03:38 Bacteria 3+ Final EDT 02/10/2025 03:38 Epi Cells OCC Final EDT 11 of 13 Narrative Lab Test Result Reference Status Received Comments 02/10/2025 03:38 Mucous NONE Final EDT 02/10/2025 03:38 Yeast NONE Final EDT PROGRESS AND PROCEDURES MEDICAL DECISION MAKING: Ordered tests include a CT of the abdomen and pelvis, complete blood count, chemistries, liver function tests, urinalysis and lactate. Abnormal tests include the CT of the abdomen and pelvis and urinalysis. The patient has been stable. IV fluids and narcotics have been given and antiemetics have been given. The vomiting has resolved. The pain and exam got better. (34-year-old white female with a left nephrostomy tube complaining of left flank pain that started yesterday. Has complained of some decreased urine flow from the nephrostomy tube but it is still flowing. She is able to urinate on her own as well. She does have an appointment to have the left nephrostomy tube changed on February 17 by her carbon lamp cleaner Dr. Hill in [place]. Denies any fevers sweats or chills. On exam the patient does have some left mid abdominal region tenderness on palpation but no abdominal distention. She is also tender over the left costophrenic angle where they left nephrostomy tube is. I do not see any erythema about the nephrostomy tube but there was a small amount of dried secretions around the tube that I did culture. No drainage noted otherwise. The patient's catheter specimen urine showed a large amount of white cells and bacteria. It did look cloudy. Her clean-catch urine looked much better. But the CAT scan did show inflammation left kidney consistent with a pyelonephritis. I did discuss this with the patient. She does have follow up scheduled with her doctor, Dr Hill in [place], on the so just 4 days from now. she does not get her pain medications filled until Friday. So she did ask if I could write her enough pain medication to get her through until Friday. 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 Usually she states they are fine with outside prescriptions for pain medication as long as it is not lot. So I wrote her for 8 tablets.). Disposition: Condition: good. Discharged in good condition. CLINICAL IMPRESSION Acute pyelonephritis. 12 of 13 Narrative DISCHARGE INSTRUCTIONS (Take medication as prescribed. Urine cultures are pending. Results in approximately 48 hours.). Warnings: GENERAL WARNINGS: Return or contact your physician immediately if your condition worsens or changes unexpectedly, if not improving as expected, or if other problems arise. Prescription monitor program consulted by me. Prescription Medications: Bactrim DS 800 mg-160 mg tablet: Take 1 tablet by mouth twice a day for 10 days, dispense 20 tablet. Refills 0. Pharmacy: [facility] - [address] [place] [address]. oxycodone-acetaminophen 5 mg-325 mg tablet: Take 1 tablet by mouth every six hours as needed for pain for 2 days, dispense 8 tablet. Refills 0. Pharmacy: [facility] - [address] [place] [address]. Follow-up: Follow up with doctor in seven days as scheduled. Reason for referral: evaluation and treatment. Summary of care provided to patient. Dr Hill on February 17 as scheduled. Understanding of the discharge instructions verbalized by patient. (Electronically signed by Gonzalez Pineda D.O. 02/10/25 07:19:14 EDT) Generated by [facility] 13 of ED ORDER SHEET (CPOE ONLY) Observed: 08/2025 1:14 AM Status: F Source: [facility] Order Sheet Order Sheet [facility] [address] [place] [address] [id number] 02/10/2025 Patient: TOR BERMAN Sex: Female : 1990 Age: 34y MEASUREMENTS: Wt: 68.0 kg, Ht/Aden: 66.0 in, BMI: 24.21 ALLERGIES: Haldol, Penicillins MEDICATION/IV/DRIP/FLUID ORDERS Order Description Priority Entered Acknowledged Completed IV NS 0.9 %1000 mL at 100 01:32 02/10/2025 01:38 01:51 mL/hr (NOW x1) Gonzalez Pineda D.O. 02/10/2025 02/10/2025 Jamison ZapataN. Sandra Chavez RAprilN. MORPHine IVP2 mg (NOW x1, 01:32 02/10/2025 01:38 01:53 HIGH ALERT MEDICATION) Gonzalez Pineda D.O. 02/10/2025 02/10/2025 Yohana Zapata, R.N. Reason for ordering with alerts: Clinical consideration given --01:32 02/10/2025 Petra StanfordOApril Ondansetron IVP4 mg (NOW x1) 01:32 02/10/2025 01:38 01:51 Gonzalez Pineda D.O. 02/10/2025 02/10/2025 Yohana Zapata R.N. cefTRIAXone (Rocephin) IVPB 02:39 02/10/2025 02:40 02:50 1gm/50ml NS1 g diluted in Wilfrido Stanford.O. 02/10/2025 02/10/2025 sodium chloride IVPB 0.9 % Yohana Zapata, R.NApril Minibag+ 50 mL at 100 mL/hr (NOW x1) Reason for ordering with alerts: Clinical consideration given --02:39 02/10/2025 Gonzalez Pineda, 1 of 3 Order Sheet D.OApril HYDROmorphone (Dilaudid) 02:39 02/10/2025 02:40 02:54 IVP0.5 mg (NOW x1, HIGH Gonzalez Pineda D.O. 02/10/2025 02/10/2025 ALERT MEDICATION) Yohana Zapata, R.N. Reason for ordering with alerts: Clinical consideration given --02:39 02/10/2025 Petra StanfordOApril HYDROmorphone (Dilaudid) 04:20 02/10/2025 04:32 04:35 IVP1 mg (NOW x1, HIGH ALERT Gonzalez Pinead D.O. 02/10/2025 02/10/2025 MEDICATION) Yohana Zapata, R.N. Reason for ordering with alerts: Clinical consideration given --04:20 02/10/2025 Petra StanfordOApril LAB ORDERS Order Description Priority Entered Acknowledged Collected Completed CBC w Diff Stat Stat 01:32 02/10/2025 01:38 02/10/2025 01:38 02/10/2025 Kendra Stanford R.N. Anne Rutt, R.N. CMP Stat Stat 01:32 02/10/2025 01:38 02/10/2025 01:38 02/10/2025 Kendra Stanford, Yohana Chavez, R.N. Urinalysis Stat Stat 01:32 02/10/2025 01:38 02/10/2025 01:38 02/10/2025 Kendra Stanford, Yohana Chavez, R.N. Lactate, Serum Stat Stat 01:32 02/10/2025 01:38 02/10/2025 01:38 02/10/2025 Kendra Stanford R.N. Anne Rutt R.NApril Culture Wound [CCL] Stat 01:42 02/10/2025 01:46 02/10/2025 01:53 02/10/2025 Stat Kendra Stanford, Yohana Chavez, R.N. Order Comments: 01:42 02/10/2025: (left nephrostomy tube site) Gonzalez Pineda D.O. Urine Culture [CCL] Stat Stat 02:38 02/10/2025 02:40 02/10/2025 02:50 02/10/2025 2 of 3 Order Sheet Kendra Stanford R.N. Anne Rutt, R.N. Urinalysis Stat Stat 02:41 02/10/2025 Cancelled: Wrong Order Gonzalez Pineda D.O. 02:43 EDT Gonzalez Pineda D.O. Urinalysis Stat Stat 02:42 02/10/2025 02:50 02/10/2025 02:50 02/10/2025 Kendra Stanford, Yohana Chavez, R.N. Order Comments: 02:42 02/10/2025: (from nephostomy tube) Gonzalez Pineda D.O. Urine Culture [CCL] Stat Stat 02:45 02/10/2025 02:50 02/10/2025 02:50 02/10/2025 Kendra Stanford R.N. Anne Rutt, R.N. DIAGNOSTIC STUDY ORDERS Order Description Priority Entered Acknowledged Completed CT ABD/PEL wo Cont Stat Stat 01:43 02/10/2025 01:46 02:05 Gonzalez Pineda D.O. 02/10/2025 02/10/2025 Yohana Zapata R.N. Order Comments: 01:43 02/10/2025: Status: Not . Gonzalez Pineda D.O. Reason for Study: Abdominal Tenderness STAFF ORDERS Order Description Priority Entered Acknowledged Collected Completed [Electronically signed by Gonzalez Pineda D.O. (02/10/2025 07:19 EDT)] 3 of 3 ED SUPER BILL Observed: 02/10/2025 1:14 AM Status: F Source: [address] [address] [id number] 02/10/2025 Patient: TOR BERMAN Sex: Female : 1990 Age: 34y Facility Professional Category Item Description Code Code Quantity Fee Total Drugs Normal Saline 564646 1 $0.00 $0.00 1000cc (243328) Nurse/E/M EMERGENCY 014017 1 $0.00 $0.00 DEPT VISIT HIGH SEVERITYFUNCJ (07485-72) Nurse/IV/IM/Infusions Drip/IVPB 775636 1 $0.00 $0.00 additional hour (06050) Nurse/IV/IM/Infusions Drip/IVPB initial 526999 1 $0.00 $0.00 (42015) Nurse/IV/IM/Infusions Hydration 145908 1 $0.00 $0.00 additional hour (13483) Nurse/IV/IM/Infusions IVP additional 382219 3 $0.00 $0.00 push (88982) Nurse/IV/IM/Infusions IVP same med 945090 1 $0.00 $0.00 (31 min apart) (22778) 1 of 2 [facility] Facility Professional Category Item Description Code Code Quantity Fee Total Grand $0.00 Total Providers Gonzalez Pineda D.O. Chief Complaint DYSURIA. LEFT FLANK PAIN. Principal Diagnosis Acute pyelonephritis. ICD-10 Codes N10: Acute pyelonephritis 2 of 2 ED VITALS FLOW SHEET Observed: 1:14 AM Status: F Source: [facility] Vitals Vital Sign Flow Sheet [address] [place] [address] [id number] 02/10/2025 Patient: TOR BERMAN Sex: Female : 1990 Age: 34y Measurements Wt: 68.0 kg, Ht/Aden: 66.0 in, BMI: 24.21 Measured Time BP MAP HR RR O2Sat ETCO2 Temp Pain GCS RTS 05:24 02/10/2025 3 05:22 02/10/2025 76 99% 05:17 02/10/2025 68 98% 05:12 02/10/2025 71 99% 05:07 02/10/2025 76 98% 05:02 02/10/2025 72 97% 04:57 02/10/2025 74 96% 04:54 02/10/2025 114/83 95 72 04:52 02/10/2025 79 97% 04:47 02/10/2025 72 96% 04:42 02/10/2025 78 97% 04:38 02/10/2025 8 04:37 02/10/2025 80 99% 04:32 02/10/2025 74 98% 04:27 02/10/2025 77 99% 1 of 2 Vitals Measured Time BP MAP HR RR O2Sat ETCO2 Temp Pain GCS RTS 04:25 02/10/2025 117/86 92 79 04:22 02/10/2025 71 99% 04:17 02/10/2025 76 99% 04:12 02/10/2025 74 98% 04:07 02/10/2025 77 98% 04:02 02/10/2025 78 98% 03:57 02/10/2025 78 98% 03:54 02/10/2025 107/81 87 72 03:52 02/10/2025 83 99% 03:47 02/10/2025 79 98% 03:42 02/10/2025 76 99% 03:37 02/10/2025 83 98% 03:32 02/10/2025 78 98% 03:27 02/10/2025 74 99% 03:24 02/10/2025 117/83 92 71 03:22 02/10/2025 78 98% 03:17 02/10/2025 76 98% 03:12 02/10/2025 75 98% 03:07 02/10/2025 77 99% 03:02 02/10/2025 76 98% 02:57 02/10/2025 76 98% 02:55 02/10/2025 8 02:54 02/10/2025 119/82 94 71 01:27 02/10/2025 140/93 109 89 18 99% 98.2 F 9 2 of 2 ED MED ADMINISTRATION DETAIL Observed: 0 02/10/2025 1:14 AM Status: F Source: [facility] Counter Top Maker Medication Administration Record [address] [place] [address] [id number] 02/10/2025 Patient: TOR BERMAN Sex: Female : 1990 Age: 34y MEASUREMENTS: Wt: 68.0 kg, Ht/Aden: 66.0 in, BMI: 24.21 ALLERGIES: Haldol, Penicillins Medication Ordered Medication Administration Date/Time IV NS 0.9 % 1000 01:50 02/10 IV NS 0.9 % 1000 mL started in bag#1 1000 mL at Started mL at 100 mL/hr 100 mL/hr over 1 hour(s) via Site# 1. Allergies verified and 01:50 02/10/2025 (NOW x1) confirmed 5 rights. Information reviewed with patient including Sandra Chavez R.N. reason for taking this medication. Verbalizes understanding. Stopped Completed per protocol. - 01:51 Sandra Chavez R.N. 02:56 02/10/2025 Sandra Chavez R.N. 02:56 04/10 Medication Discontinued: bag #1 infused. Total Scanned amount infused: 1000 mL. IV patency established. IV site checked: no pain, redness, or swelling. IV flushed thoroughly post-medication administration. - 02:56 Sandra Chavez R.N. MORPHine IVP 2 01:52 02/10 MORPHine IVP 2 mg given over 1 minute(s) via Site# Given mg (NOW x1, HIGH 1. Allergies verified and confirmed 5 rights. IV patency established. 01:52 02/10/2025 ALERT IV site checked: no pain, redness, or swelling. IV flushed thoroughly Sandra Chavez R.N. MEDICATION) pre-medication administration. Information reviewed with patient Scanned including reason for taking this medication. Verbalizes understanding. - 01:53 Sandra Chavez R.N. 1 of 2 Counter Top Maker Medication Ordered Medication Administration Date/Time Ondansetron IVP 4 01:51 02/10 Ondansetron IVP 4 mg given over 1 minute(s) via Given mg (NOW x1) Site# 1. Allergies verified and confirmed 5 rights. IV patency 01:51 02/10/2025 established. IV site checked: no pain, redness, or swelling. IV Sandra Chavez R.N. flushed thoroughly pre-medication administration. Information Scanned reviewed with patient including reason for taking this medication. Verbalizes understanding. - 01:51 Sandra Chavez R.N. cefTRIAXone 02:49 02/10 cefTRIAXone (Rocephin) IVPB 1gm/50ml NS 1 g Started (Rocephin) IVPB started at 100 mL/hr diluted in sodium chloride IVPB 0.9 % 02:49 02/10/2025 1gm/50ml NS 1 g Minibag+ 50 mL over 30 minute(s) via Site# 1. Allergies verified and Sandra Chavez R.N. diluted in sodium confirmed 5 rights. IV patency established. IV site checked: no pain, Stopped chloride IVPB 0.9 % redness, or swelling. IV flushed thoroughly pre-medication 04:32 02/10/2025 Minibag+ 50 mL at administration. Information reviewed with patient including reason Sandra Chavez R.N. 100 mL/hr (NOW x1) for taking this medication. Verbalizes understanding. Completed per Scanned protocol. - 02:50 Sandra Chavez R.N. 04:32 02/10 Medication Discontinued: IV infused. Total amount infused: 50 mL. IV patency established. IV site checked: no pain, redness, or swelling. IV flushed thoroughly post-medication administration. - 04:32 Sandra Chavez R.N. HYDROmorphone 02:51 02/10 HYDROmorphone (Dilaudid) IVP 0.5 mg given over 1 Given (Dilaudid) IVP 0.5 minute(s) via Site# 1. Allergies verified and confirmed 5 rights. IV 02:51 02/10/2025 mg (NOW x1, HIGH patency established. IV site checked: no pain, redness, or swelling. Sandra Chavez R.N. ALERT IV flushed thoroughly pre-medication administration. Information Scanned MEDICATION) reviewed with patient including reason for taking this medication. Verbalizes understanding. Medication Wastage: 0.5 mg wasted. - 02:54 Sandra Chavez R.N. HYDROmorphone 04:35 02/10 HYDROmorphone (Dilaudid) IVP 1 mg given over 1 Given (Dilaudid) IVP 1 mg minute(s) via Site# 1. Allergies verified and confirmed 5 rights. IV 04:35 02/10/2025 (NOW x1, HIGH patency established. IV site checked: no pain, redness, or swelling. Sandra Chavez R.N. ALERT IV flushed thoroughly pre-medication administration. Information Scanned MEDICATION) reviewed with patient including reason for taking this medication. Verbalizes understanding. - 04:35 Sandra Chavez R.N. 2 of 2 ED VISIT SUMMARY Observed: 02/10/2025 1:14 AM Status: F Source: [facility] Visit Overview Visit Overview [address] [address] [id number] 02/10/2025 Patient: TOR BERMAN Sex: Female : 1990 Age: 34y 02/10/2025 07:19 AM EDT ED Arrival:01:14 02/10/2025 EDT Status:not Recent Travel:no Language:eng Adv Directive: Isolation Status: Ethnicity:N Fall Risk:no risk Infectious Disease Exposure:no Measurements:5'6" / 167.6 Self-Harm Status:risk Sepsis Screen:negative cm 150.0 lb / 68.0 kg Chief Complaint:(flank pain, 9/10) and (pace) ALLERGIES Haldol Penicillins HOME MEDICATIONS lexapro: 20 mg once a day . LORazepam IntensoL 2 mg/mL oral concentrate: 1 mg three times a day as needed. oxycodone 10 mg tablet: every 6 hours. zofran: 4 mg every 6 hours as needed. 1 4 Visit Overview PAST MEDICAL HISTORY / PROBLEMS Cancer. stage 3 cervicle Renal Failure See nurses notes PAST SURGICAL HISTORY nephrostomy tube SOCIAL HISTORY Nutritional assessment: No deficits Functional assessment: No impairments Smoking status: Unknown Alcohol use: No Drug use: Yes ED COURSE MEDICATIONS GIVEN IN EMERGENCY DEPARTMENT 01:50 02/10/25 IV NS 0.9 % 1000 mL 100 mL/hr over 1 hour(s) 01:51 02/10/25 Ondansetron IVP 4 mg over 1 minute(s) 01:52 02/10/25 MORPHine IVP 2 mg over 1 minute(s) cefTRIAXone (Rocephin) IVPB 1gm/50ml NS 1 g diluted in sodium chloride IVPB 0.9 % 02:49 02/10/25 Minibag+ 50 mL 100 mL/hr over 30 minute(s) 02:51 02/10/25 HYDROmorphone (Dilaudid) IVP 0.5 mg over 1 minute(s) 04:35 02/10/25 HYDROmorphone (Dilaudid) IVP 1 mg over 1 minute(s) IV SITE INFORMATION INTAKE OUTPUT REASSESMENT (most recent) 2 of 4 Visit Overview 02:00 02/10/25. Ambulatory to room. Patient gowned. GENERAL / NEURO / PSYCH: Alert. Oriented X 4. Appears in pain. ( pain 9/10 left nephrostomy tube site, pt reported drainage around site at home, none noted here.). HEENT: Mucous membranes are pink. RESPIRATORY: Respirations not labored. Breath sounds within normal limits. CVS: Normal sinus rhythm noted. Capillary refill less than 2 seconds. GI / : The patient has had nausea. Abdomen soft and nontender. Bowel sounds within normal limits. No diarrhea. SKIN: Skin is warm and dry. VITAL SIGNS First Vitals Last Vitals Temp 01:02/10/25 98.2 F Temp 05:02/10/25 BP 01:02/10/25 140/93 BP 05:02/10/25 HR 01:02/10/25 89 HR 05:02/10/25 RR 01:02/10/25 18 RR 05:02/10/25 O2 Sat 01:02/10/25 99% O2 Sat 05:02/10/25 Pain 01:02/10/25 9 Pain 05:02/10/25 3 ETCO2 01:02/10/25 ETCO2 05:02/10/25 GCS 01:02/10/25 GCS 05:02/10/25 RTS 01:02/10/25 RTS 05:02/10/25 PROCEDURES NURSING INTERVENTIONS LABS / STUDIES LABS / STUDIES ORDERED CBC w Diff CMP CT ABD/PEL wo Cont Culture Wound [CCL] Lactate, Serum Urinalysis Urinalysis Urine Culture [CCL] Urine Culture [CCL] CLINICAL IMPRESSION 3 of 4 Visit Overview ACUTE PYELONEPHRITIS 4 of 4 ED NURSES CLINICAL NOTE Observed: 2024 1:14 AM Status: F Source: [facility] Nurse Narrative Nurse Clinical Narrative [address] [place] [address] [id number] 02/10/2025 01:14:00 Patient: TOR BERMAN Sex: Female : 1990 Age: 34y Disposition: Discharge Disposition Decision Time: 05:15 02/10/2025 Departure Time: 05:02/10/2025 TRIAGE Arrived by private vehicle. Historian: (patient). Primary physician (sanjeev). Triage time: 01:19 02/10/2025. Acuity: LEVEL 3. Chief Complaint: (flank pain, 07/13). SEPSIS SCREEN: NEGATIVE. SIRS criteria negative. Possible sources of infection: UTI. -- 01:02/10/25 EDT uLzma Farah R.N. 01:02/10/25. BP: 140/93 MAP: 109. HR: 89. RR: 18. O2 saturation: 99% Temperature: 98.2 F. Pain level now 07/13. -- 01:02/10/25 EDT Luzma Farah R.N. Measurements: 01:02/10/25 Wt: 68.0 kg, Ht/Aden: 66.0 in, BMI: 24.21 -- 01:02/10/25 EDT Luzma Farah R.N. Medications: zofran: 4 mg every 6 hours as needed. -- 01:02/10/25 EDT Luzma Farah R.N. lexapro: 20 mg once a day . -- 01:02/10/25 EDT Luzma Farah R.N. LORazepam IntensoL 2 mg/mL oral concentrate: 1 mg three times a day as needed. -- 01:02/10/25 EDT Luzma Farah R.N. 1 of 5 Nurse Narrative oxyCODONE 10 mg tablet: every 6 hours as needed. -- 01:02/10/25 EDT Luzma Farah R.N.Updated through eRx -- 04:02/10/25 EDT Gonzalez Pineda D.O. oxycodone 10 mg tablet: every 6 hours. -- 04:02/10/25 EDT Gonzalez Pineda D.O. 01:02/10/25. Preferred Pharmacy: ([facility]). -- 01:02/10/25 EDT Luzma Farah R.N. Allergies: Penicillins -- 01:02/10/25 EDT Luzma Farah R.N. Haldol -- 01:02/10/25 EDT Luzma Farah R.N. Problems: Renal Failure -- 01:02/10/25 LILIANAT Luzma Farah R.N. Cancer. stage 3 cervicle -- 01:02/10/25 LILIANAT Luzma Farah R.N. ADDITIONAL SURGERIES: nephrostomy tube -- 01:02/10/25 LILIANAT Luzma Farah R.N. cervicle biopsy -- 01:02/10/25 LILIANAT Luzma Farah R.N. History 01:02/10/25. SOCIAL HX: Regular vaping. Drug use: marijuana. No alcohol use. The patient has not traveled outside the [place] Infectious disease exposure: No infectious disease exposure. ABUSE ASSESSMENT: The patient answered "yes" to the question(s) "Do you feel safe in your home?" and "no" to the question(s) "Are you afraid to go home?". SELF HARM ASSESSMENT: Self harm assessment was performed. The patient answered no to the question(s) "Have you recently felt down, depressed, or hopeless?" and "Do you have thoughts of harming or killing yourself?". NUTRITIONAL RISK ASSESSMENT: The nutritional risk assessment revealed no deficiencies. FUNCTIONAL ASSESSMENT: Functional assessment: no impairments noted. 2 of 5 Nurse Narrative FALL RISK ASSESSMENT: Fall risk assessment completed. No risk factors identified. -- 01:31 02/10/25 EDT Luzma Farah R.N. PHYSICAL ASSESSMENT 02:00 02/10/25. Ambulatory to room. Patient gowned. GENERAL / NEURO / PSYCH: Alert. Oriented X 4. Appears in pain. ( pain 9/10 left nephrostomy tube site, pt reported drainage around site at home, none noted here.). HEENT: Mucous membranes are pink. RESPIRATORY: Respirations not labored. Breath sounds within normal limits. CVS: Normal sinus rhythm noted. Capillary refill less than 2 seconds. GI / : The patient has had nausea. Abdomen soft and nontender. Bowel sounds within normal limits. No diarrhea. SKIN: Skin is warm and dry. -- 02:00 02/10/25 EDT Sandra Chavez R.N. NURSING PROGRESS NOTES 01:34 02/10/25. Site #1 started via IV in the right antecubital space with a 20g angiocath with aseptic technique and good blood return; 1 attempt. Blood drawn: rainbow set and arriola tube(s). Labeled in the presence of the patient and sent to the lab. Saline lock flushed with 5 mL saline. -- 01:39 02/10/25 EDT Sandra Chavez R.N. 01:47 02/10/25. Rounding: Pain: assessed pain level. Proximity of possessions / care items: call light within easy reach. Set expectations: advised patient of rounding protocol timing. Two patient identifiers checked. Call light placed in reach. Side rails up x 2. Bed placed in lowest position. Brakes of bed on. -- 01:58 02/10/25 EDT Sandra Chavez R.N. 01:50 02/10/25. IV NS 0.9 % 1000 mL started in bag#1 1000 mL at 100 mL/hr over 1 hour(s) via Site# 1. Allergies verified and confirmed 5 rights. Information reviewed with patient including reason for taking this medication. Verbalizes understanding. Completed per protocol. -- 01:51 02/10/25 EDT Sandra hCavez R.N. 01:51 02/10/25. Ondansetron IVP 4 mg given over 1 minute(s) via Site# 1. Allergies verified and confirmed 5 rights. IV patency established. IV site checked: no pain, redness, or swelling. IV flushed thoroughly pre-medication administration. Information reviewed with patient including reason for taking this medication. Verbalizes understanding. -- 01:51 02/10/25 EDT Sandra Chavez R.N. 01:52 02/10/25. MORPHine IVP 2 mg given over 1 minute(s) via Site# 1. Allergies verified and confirmed 5 rights. IV patency established. IV site checked: no pain, redness, or swelling. IV flushed thoroughly pre-medication administration. Information reviewed with patient including reason for taking this medication. Verbalizes understanding. -- 01:53 02/10/25 EDT Sandra Chavez R.N. 01:58 02/10/25. Patient transported to CT by stretcher with body technician. -- 01:58 02/10/25 EDT Sandra Chavez R.N. 02:02/10/25. Patient returned from CT by stretcher with body technician. -- 02:06 02/10/25 EDT Sandra Chavez R.N. 3 of 5 Nurse Narrative 02:49 02/10/25. cefTRIAXone (Rocephin) IVPB 1gm/50ml NS 1 g started at 100 mL/hr diluted in sodium chloride IVPB 0.9 % Minibag+ 50 mL over 30 minute(s) via Site# 1. Allergies verified and confirmed 5 rights. IV patency established. IV site checked: no pain, redness, or swelling. IV flushed thoroughly pre-medication administration. Information reviewed with patient including reason for taking this medication. Verbalizes understanding. Completed per protocol. -- 02:50 02/10/25 EDT Sandra Chavez R.N. 02:51 02/10/25. HYDROmorphone (Dilaudid) IVP 0.5 mg given over 1 minute(s) via Site# 1. Allergies verified and confirmed 5 rights. IV patency established. IV site checked: no pain, redness, or swelling. IV flushed thoroughly pre-medication administration. Information reviewed with patient including reason for taking this medication. Verbalizes understanding. Medication Wastage: 0.5 mg wasted. -- 02:54 02/10/25 EDT Sandra Chavez R.N. 02:54 02/10/25. BP: 119/82 MAP: 94 mmHg. HR: 71 bpm. -- 02:55 02/10/25 EDT Sandra Chavez R.N. 02:55 02/10/25. Pain level now 8/10. (left neph tube site, 8/10, sharp, constant, pt medicated per order). -- 02:55 02/10/25 EDCharlie Chavez R.N. 02:56 02/10/25. IV NS 0.9 %: Medication Discontinued. bag #1 infused. Total amount infused: 1000 mL. IV patency established. IV site checked: no pain, redness, or swelling. IV flushed thoroughly post-medication administration. -- 02:56 02/10/25 EDCharlie Chavez R.N. 04:32 02/10/25. cefTRIAXone (Rocephin) IVPB 1gm/50ml NS: Medication Discontinued. IV infused. Total amount infused: 50 mL. IV patency established. IV site checked: no pain, redness, or swelling. IV flushed thoroughly post-medication administration. -- 04:32 02/10/25 EDT Sandra Chavez R.N. 04:35 02/10/25. HYDROmorphone (Dilaudid) IVP 1 mg given over 1 minute(s) via Site# 1. Allergies verified and confirmed 5 rights. IV patency established. IV site checked: no pain, redness, or swelling. IV flushed thoroughly pre-medication administration. Information reviewed with patient including reason for taking this medication. Verbalizes understanding. -- 04:35 02/10/25 EDT Sandra Chavez R.N. 04:38 02/10/25. Pain level now 8/10. Describes the pain as sharp. Constant. (left flank). -- 04:38 02/10/25 EDT Sandra Chavez R.N. 04:54 02/10/25. BP: 114/83 MAP: 95 mmHg. HR: 72 bpm. -- 05:24 02/10/25 EDT Sandra Chavez R.N. 05:22 02/10/25. HR: 76 bpm. O2 saturation: 99%. -- 05:02/10/25 EDT Sandra Chavez R.N. 05:24 02/10/25. Pain level now 10. -- 05:02/10/25 EDT Sandra Chavez R.N. 05:02/10/25. Site #1 removed upon discharge. Bandage and pressure dressing applied. -- 05:02/10/25 EDT Sandra Chavez R.N. DISPOSITION / DISCHARGE Departure time: 05:02/10/2025. Condition at departure: improved. No learning barriers present. Discharge instructions provided and reviewed with the patient. Reviewed medication(s) side effects, precautions, dosing and course information. Prescription(s) sent electronically to pharmacy. Reviewed referral to a carbon lamp cleaner. Patient verbalized understanding. Written instructions provided in Palestinian. No activity restrictions. The patient was discharged by the physician. The patient was discharged home and accompanied by parent. The patient left ambulatory and via private vehicle. Parent driving. -- 05:02/10/25 EDT Sandra Chavez R.N. 4 of 5 Nurse Narrative (Electronically signed by Sandra Chavez R.N. 02/10/25 05:26:08 EDT) Generated by [facility] 5 of 5 URINALYSIS Collected: 5 7:12 AM Status: F Source: [facility] TYPE CODE TESTS RESULT OUT OF RANGE REFERENCE UNITS LAB URINALYSIS(ISAIAH NC) URINALYSIS Result Comment: URINALYSIS LAB Specimen Type(LOINC) Specimen Type R LAB Color(LOINC) Color p.yel NORMAL: YELLOW LAB Clarity(LOINC) Clarity SL. CLOUDY Abnormal NORM AL: CLEAR LAB ph(LOINC) ph 7 NORMAL: 5.0-8.0 LAB Protein(LOINC) Protein 15 Abnormal RAJIV L: NEGATIVE LAB Glucose(LOINC) Glucose NORM RAJIV L: NORMAL LAB Ketone(LOINC) Ketone NEG NORMAL : NEGATIVE LAB Bilirubin(LOIN C) Bilirubin NEG NORMAL: NEGATIVE LAB Blood(LOINC) Blood 150 Abnormal NORMAL: NEGATIVE LAB Urobilinog(ISAIAH NC) Urobilinog NORM NORMAL: NORMAL LAB Sp Stem(LOINC) Sp Stem 1.010 NORMAL: 1.010-1.030 LAB Nitrite(LOINC) Nitrite NEG RAJIV L: NEGATIVE LAB Leukocytes(ISAIAH NC) Leukocytes 500 Abnormal NORMAL: NEGATIVE LAB Microscopic(LO INC) Microscopic SEE BELOW Result Comment: MICROSCOPIC LAB Wbc(LOINC) Wbc 16-25 0-5/hpf LAB Rbc(LOINC) Rbc 5-10 0-3/hpf LAB Casts(LOINC) Casts NONE LAB Crystals(LOINC ) Crystals NONE LAB Amorphous(LOIN C) Amorphous NONE LAB Bacteria(LOINC ) Bacteria TRACE LAB Epi Cells(LOINC) Epi Cells NONE LAB Mucous(LOINC) Mucous NONE LAB Yeast(LOINC) Yeast 1+ Performed By: #### [id number] ## ## [place] [id number] URINE CULTURE [CCL] Observed: 01/29/2025 7:12 AM Status: F Source: [facility] URCUL See Results Below See Below CULTURE, URINE MIXED MICROBIOTA 10,000 -<50,000 CFU/ml Mixed microbiota No further workup. Mixed microbiota can be due to???urine???contamination with s llection technique or straight catheterization for???urine???collection. SOURCE: Urine (Nonspecific) [facility] [address] [place] [address] Joao Alvarenga III, M.D. [id number] SEND TO IC NO Performed By: #### [id number] ## ## [place] [address] SERUM QUAL Collected: 01/29/2025 5:25 AM S tatus: F Source: [facility] TYPE CODE TESTS RESULT OUT OF RANGE REFERENCE UNITS LAB SER(LOINC) SER NEGATIVE NEGATIVE LAB INTERNAL QC(LOINC) INTERNAL QC PASS LAB EXTERNAL QC DONE?(LOINC) EXTERNAL QC DONE? YES Performed By: #### [id number] ## ## [facility],[address] [place], [place] [id number] CBC + DIFF Collected: 5 5:25 AM Status: F Source: [facility] TYPE CODE TESTS RESULT OUT OF RANGE REFERENCE UNITS LAB CBC + DIFF(LOINC) CBC + DIFF Result Comment: CBC-COMPLETE BLOOD COUNT LAB WBC(LOINC) WBC 17.4 High 4.5 - 10.8 x 10EE3/UL LAB RBC(LOINC) RBC 4.47 4.10 - 5.30 x 10EE6/UL LAB HEMOGLOBIN(ISAIAH NC) HEMOGLOBIN 15.2 12.0 - 16.0 g/dl LAB HEMATOCRIT(ISAIAH NC) HEMATOCRIT 43.6 34.0 - 46.0 % LAB MCV(LOINC) MCV 98 80 - 99 fl LAB MCH(LOINC) MCH 34 High 27 - 33 pg LAB MCHC(LOINC) MCHC 35 32 - 36 X10 3 LAB RDW/CV(LOINC) RDW/CV 13.6 12.0 - 15.6 % LAB PLATELET(LOINC ) PLATELET 437 150 - 450 x10EE3/UL LAB MPV(LOINC) MPV 8.2 6.6 - 10.5 fl Result Comment: AUTOMATED DI FFERENTIAL LAB NEUT %(LOINC) NEUT % 84.3 High 46.0 - 76.0 % LAB LYMPH %(LOINC) LYMPH % 4.8 Low 20.0 - 45.0 % LAB MONOS %(LOINC) MONOS % 10.0 0.0 - 10.0 % LAB EO %(LOINC) EO % 0.7 0.0 - 7.0 % LAB BASO %(LOINC) BASO % 0.2 0.0 - 2.0 % LAB Lymph #(LOINC) Lymph # 0.83 0.80 - 2.80 x10EE 3/UL LAB Neut #(LOINC) Neut # 14.65 High 1.50 - 7.10 x10EE3 /UL LAB Green #(LOINC) Green # 1.74 High 0.20 - 1.00 x10EE3 /UL LAB EO #(LOINC) EO # 0.12 0.00 - 0.50 x10EE3/U L LAB Baso #(LOINC) Baso # 0.04 0.00 - 0.10 x10EE3 /UL LAB MANUAL DIFF(LOINC) MANUAL DIFF SEE BELOW LAB BANDS(LOINC) BANDS 2 0 - 5 % LAB SEGS(LOINC) SEGS 83 High 46 - 76 % LAB LYMPH(LOINC) LYMPH 4 Low 20 - 45 % LAB MONOS(LOINC) MONOS 11 High 0 - 10 % LAB MORPHOLOGY(ISAIAH NC) MORPHOLOGY REVIEWED Performed By: #### [id number] ## ## [facility],[address] [place] [address] CMP WITH EGFR Collected: 5 5:25 AM Status: F Source: [facility] TYPE CODE TESTS RESULT OUT OF RANGE REFERENCE UNITS LAB CMP with eGFR(LOINC) CMP with eGFR Result Comment: COMPREHENSIV E METABOLIC PANEL LAB SODIUM(LOINC) SODIUM 142 136 - 145 mmol/l LAB POTASSIUM(LOIN C) POTASSIUM 3.3 Low 3.5 - 5.1 mmol/L LAB CHLORIDE(LOINC ) CHLORIDE 106 98 - 107 mmol/L LAB CO2(LOINC) CO2 24.0 21.0 - 32.0 mmol/L LAB GLUCOSE(LOINC) GLUCOSE 166 High 74 - 106 mg/dl LAB BUN(LOINC) BUN 10 7 - 18 mg/dl LAB CREATININE(ISAIAH NC) CREATININE 1.01 0.55 - 1.02 mg/dl LAB AST/SGOT(LOINC ) AST/SGOT 14 13 - 39 U/L LAB ALK PHOS(LOINC) ALK PHOS 91 46 - 116 U/L LAB CALCIUM(LOINC) CALCIUM 9.4 8.5 - 10.1 mg/dl LAB TOTAL PROTEIN(LOINC) TOTAL PROTEIN 7.1 6.4 - 8.2 g/dl LAB ALBUMIN(LOINC) ALBUMIN 4.1 3.4 - 5.0 g/dL LAB GLOBULIN(LOINC ) GLOBULIN 3.0 1.5 - 3.8 G/DL LAB A/G RATIO(LOINC) A/G RATIO 1.4 0.9 - 1.6 LAB TOTAL BILI(LOINC) TOTAL BILI 0.4 0.2 - 1.0 mg/dl LAB B/C RATIO(LOINC) B/C RATIO 10 0 - 30 ratio LAB ALT/SGPT(LOINC ) ALT/SGPT 19 16 - 63 U/L LAB ANION GAP(LOINC) ANION GAP 15 10 - 20 mmol/L LAB AGE(LOINC) AGE 34 years LAB eGFR(LOINC) eGFR >60 60 - 999 ML/MINUT E LAB eGFR(AA)(LOINC ) eGFR(AA) >60 60 - 999 ML/MINUT E Result Comment: ACCORDING TO THE NATIONAL KIDNEY DISEASE EDUCATION PROGRAM(NKDE), A NORMAL eGFR IS A VALUE GREATER THAN OR EQUAL TO 60 ML/MIN/1.73 SQ METERS. CHRONIC KIDNEY DISEASE: <60mL/MIN/1.73 SQ METERS KIDNEY FAILURE: <15mL/MIN/1.73 SQ METERS THIS TEST SHOULD ONLY BE USED FOR PATIENTS 18 YEARS OF AGE AND OLDER. Performed By: #### [id number] ## ## [facility],[address] [place] [address] ED VITALS FLOW SHEET Observed: 4:55 AM Status: F Source: [facility] Vitals [place]ital [place] [address] [phone] 01/29/2025 Patient: TOR BERMAN Sex: Female : 1990 Age: 34y Measurements Wt: 52.2 kg, Ht/Aden: 66.0 in, BMI: 18.56 Measured Time BP MAP HR RR O2Sat ETCO2 Temp Pain GCS RTS 08:36 01/29/2025 133/93 113 78 08:36 01/29/2025 16 99% RA 4 06:51 01/29/2025 153/94 113 69 05:20 01/29/2025 151/101 128 65 05:15 01/29/2025 8 05:14 01/29/2025 164/103 123 62 16 100% RA 97.8 F 1 of 1 ED SUPER BILL Observed: 01/29/2025 4:55 AM Status: F [facility] [address] [address] [phone] 01/29/2025 Patient: TOR BERMAN Sex: Female : 1990 Age: 34y Item Facility Professional Category Description Code Code Quantity Fee Total Nurse/E/M EMERGENCY 747037 1 $0.00 $0.00 DEPARTMENT VISIT HIGH/URGENT SEVERITY (61148-41) Nurse/IV/IM/Infusions Drip/IVPB initial [id number] 1 $0.00 $0.00 (38260) Nurse/IV/IM/Infusions Hydration 191161 2 $0.00 $0.00 additional hour (65618) Nurse/IV/IM/Infusions IVP additional [id number] 3 $0.00 $0.00 push (05739) Grand Total $0.00 Providers Kendra Stanford M.D. 1 of 2 [facility] Chief Complaint VOMITING and DIARRHEA. Principal Diagnoses Vomiting with nausea. Diarrhea Vomiting with nausea. Diarrhea. Acute urinary tract infection with pyelonephritis associated with indwelling catheter. ICD-10 Codes R11.2: Nausea with vomiting, unspecified R19.7: Diarrhea, unspecified R11.2: Nausea with vomiting, unspecified R19.7: Diarrhea, unspecified N10: Acute pyelonephritis N12: Tubulo-interstitial nephritis, not specified as acute or chronic 2 of 2 ED PHYSICIAN DISCHARGE REPORT Observed: 01/29/2025 4:55 AM Status: F Source: [facility] Discharge Instructions Discharge Summary [address] [address] [id number] 01/29/2025 Patient: TOR BERMAN Sex: Female : 1990 Age: 34y Thank you for visiting [facility]. You have been evaluated today by Andrew Winter M.D. for the following condition(s): Principal Diagnosis Vomiting with nausea. Diarrhea. Acute urinary tract infection with pyelonephritis associated with indwelling catheter. INSTRUCTIONS Prescription Medications: Ceftin 250 mg 2x/day. Follow-up: Follow up with your doctor in about two days if not better. Patient [facility] Drug Safety Physician Date/Time Discharge Instructions General Instructions with ExitWriter [address] [address] [id number] 01/29/2025 Patient: TOR BERMAN Sex: Female : 1990 Age: 34y Thank you for visiting [facility]. You have been evaluated today by Andrew Winter M.D. for the following condition(s): Principal Diagnosis Vomiting with nausea. Diarrhea. Acute urinary tract infection with pyelonephritis associated with indwelling catheter. INSTRUCTIONS Prescription Medications: Ceftin 250 mg 2x/day. Follow-up: Follow up with your doctor in about two days if not better. Discharge Summary [address] [place] [place] [address] [id number] 01/29/2025 Patient: TOR BERMAN Sex: Female : 1990 Age: 34y Thank you for visiting [facility]. You have been evaluated today by Gonzalez Pineda D.O. for the following condition(s): 2 of 11 Discharge Instructions Principal Diagnosis Vomiting with nausea. Diarrhea INSTRUCTIONS Drink plenty of fluids. Take clear liquids only (frequent sips) today, for the next 24 hours. Warnings: GENERAL WARNINGS: Return or contact your physician immediately if your condition worsens or changes unexpectedly, if not improving as expected, or if other problems arise. Prescription Medications: ondansetron 4 mg disintegrating tablet: Take 1 tablet on tongue every eight hours for nausea/vomiting for 5 days, dispense 15 tablet. Refills 0. Pharmacy: [facility] - [address] [place] [address]. Follow-up: Follow up with doctor in three days. Call for an appointment. Reason for referral: evaluation and treatment. Summary of care provided to patient. Dr Solis Pace, [address] [place], [place] [address], [place]. [id number] . Understanding of the discharge instructions verbalized by patient. You have been given the following additional information: Clear Liquid Diet Vomiting (Adult) Viral Diarrhea (Adult) Patient [facility] Drug Safety Physician Date/Time 3 of 11 Discharge Instructions General Instructions with ExitWriter [facility] [address] [place] [address] [phone] 01/29/2025 Patient: TOR BERMAN Sex: Female : 1990 Age: 34y Thank you for visiting [facility]. You have been evaluated today by Gonzalez Pinead D.O. for the following condition(s): Principal Diagnosis Vomiting with nausea. Diarrhea INSTRUCTIONS Drink plenty of fluids. Take clear liquids only (frequent sips) today, for the next 24 hours. Warnings: GENERAL WARNINGS: Return or contact your physician immediately if your condition worsens or changes unexpectedly, if not improving as expected, or if other problems arise. Prescription Medications: ondansetron 4 mg disintegrating tablet: Take 1 tablet on tongue every eight hours for nausea/vomiting for 5 days, dispense 15 tablet. Refills 0. Pharmacy: [facility] - [address] [place] [address]. Follow-up: Follow up with doctor in three days. Call for an appointment. Reason for referral: evaluation and treatment. Summary of care provided to patient. Dr Solis Pace, [address], [place]. [address] . Understanding of the discharge instructions verbalized by patient. ADDITIONAL INFORMATION 4 of 11 Discharge Instructions Clear Liquid Diet Clear liquids are any liquid that you can see through. They are also very easy to digest. You may be put on a clear liquid diet if you are recovering from irritation or infection of the stomach or digestive tract. This diet may also be used before surgery or special procedures such as a colonoscopy. You should not be on this diet for more than 3 days. Below are some clear liquids you can have on this diet. Adults and children over 2 years old Adults should drink a total of 2 to 3 quarts of liquid per day. It may be easier to drink small frequent servings rather than a few large ones. Clear liquids can include: Clear fruit juices without pulp. Apple, white grape, and cranberry juice; clear fruit drinks. Beverages. Sport drinks, sodas, mineral water (plain or flavored), tea, black coffee, liquid gelatin (add twice the recommended amount of water). Soups. Clear broth. Desserts. Plain gelatin, frozen fruit juice bars without pulp or fruit pieces. Children under 2 years old Oral rehydration fluids are available at [facility] and most grocery stores. You don't need a prescription. Vomiting (Adult) Vomiting is a common symptom that may be due to different causes. These include gastroenteritis ("stomach flu"), food poisoning and gastritis. There are other more serious causes of vomiting which may be hard to diagnose early in the illness. Therefore, it is important to watch for the warning signs listed below. 5 of 11 Discharge Instructions The main danger from repeated vomiting is [...] and water are not available, use alcohol-based merchandise executive to keep from spreading the infection to others. Wash your hands for at least 20 seconds. Humming the happy birthday song twice while you wash is an easy way to make sure you've washed for 20 seconds. Wash your hands after using the toilet, before and after preparing food, before eating food, after changing a diaper, cleaning a wound, caring for a sick person, and blowing your nose, coughing, or sneezing. You should also wash your hands after caring for someone who is sick, touching pet food, or treats, and touching an animal, or animal waste. [...] chocolate. No spices or seasonings except salt. 6 of 11 Discharge Instructions During the next 24 hours: Gradually resume [...] fainting Unusually drowsy or confused Fever of 100.4F (38C) oral or higher, or as directed Yellow color of the eyes or skin 7 of 11 Discharge Instructions Viral Diarrhea (Adult) Diarrhea caused by a virus is often called viral gastroenteritis. Many people call it the stomach flu, but it has nothing to do with the flu. The virus that causes diarrhea affects the stomach and intestinal tract. It often lasts from 2 to 7 days. Diarrhea is the passing of loose, watery stools 3 or more times a day. Symptoms Along with diarrhea, you may have these symptoms: Belly (abdominal) pain and cramping Nausea and vomiting Loss of bowel control Fever and chills Bloody stools The danger from repeated diarrhea is dehydration. This is when your body loses too much water and other fluids. Antibiotics don't work well in treating this illness. But there are things you can do at home that will help. 8 of 11 Discharge Instructions Home care Follow these home care tips: If symptoms are severe, rest at home for the next 24 hours or until you are feeling better. Wash your hands with soap and water or an alcohol-based merchandise executive. This helps prevent the spread of infection. Wash your hands after touching anyone who is sick. Teach all people in your home when and how to wash their hands Wet your hands with clean, running water. Lather the backs of your hands, between your fingers, and under your nails. Scrub your hands for at least 20 seconds. If you need a timer, try humming the "Happy Birthday" song from beginning to end twice. Rinse your hands well. Dry them with a clean towel. Wash your hands after using the toilet and before meals. Clean the toilet after each use. Food preparation: People with diarrhea should not make food for others. When making food, wash your hands after touching anyone who is sick. Wash your hands after using items that have been in contact with raw food. This includes cutting boards, countertops, and knives. Keep uncooked meats away from cooked and sbtgc-po-gtp foods. Medicines: You may use acetaminophen or nonsteroidal anti-inflammatory drugs (NSAIDS) such as ibuprofen or naproxen to control fever unless another medicine was prescribed. In addition: o Talk with your healthcare provider before using these medicines if you have chronic liver or kidney disease, or ever had a stomach ulcer or GI (gastrointestinal) bleeding. o Don't give aspirin (or medicine that contains aspirin) to anyone younger than age 19 unless directed by the provider. Taking aspirin can put them at risk for Milton syndrome. This is a rare but very serious disorder. It most often affects the brain and the liver. o Don't use NSAID medicines if you are already taking one for another condition (such as arthritis) or if you are taking aspirin (such as for heart disease or after a stroke). Anti-diarrhea medicine should be taken for this condition only if advised by your healthcare provider. Sometimes it can make your condition worse. If you have bloody diarrhea or fever, check with your provider before taking this type of medicine. Discharge Instructions Diet: Water and clear liquids are important so you don't get dehydrated. Drink small amounts at a time. Don't guzzle it down. If you are very dehydrated, sports drinks aren't a good choice. They have too much sugar and not enough electrolytes. In this case, commercially available products called oral rehydration solutions are best. Caffeine, tobacco, and alcohol can make the diarrhea, cramping, and pain worse. Try to stop using these until you are fully recovered. Don't force yourself to eat, especially if you have cramping, vomiting, or diarrhea. Don't eat large amounts at a time, even if you are hungry. It may make you feel worse. If you eat, don't have fatty, greasy, spicy, or fried foods. Don't have any dairy products, as they can make diarrhea worse. During the first 24 hours (the first full day) follow the diet below: Drinks: Water, clear liquids, soft drinks without caffeine; edis gómez, mineral water (plain or flavored), decaffeinated tea and coffee Soups: Clear broth, consomm, and bouillon Desserts: Plain gelatin, ice pops, and fruit juice bars During the next 24 hours (the second day) you may add these to the above if you are feeling better: Hot cereal, plain toast, bread, rolls, crackers Plain noodles, rice, mashed potatoes, chicken noodle or rice soup Unsweetened canned fruit such as applesauce and bananas (not pineapple and citrus) Limit fat intake to less than 15 grams per day. Don't eat margarine, butter, oils, mayonnaise, sauces, gravies, fried foods, peanut butter, meat, poultry, and fish. Limit fiber. Don't eat raw or cooked vegetables, fresh fruits (except bananas), and bran cereals. Limit caffeine and chocolate. No spices or seasonings except salt. During the next 24 hours: Slowly go back to a normal diet, as you feel better and your symptoms ease. If at any time the diarrhea or cramping gets worse, go back to the simpler diet (above) or to clear liquids. Follow-up care Follow up with your healthcare provider, or as advised. Call if you aren't getting better in 24 hours or if the diarrhea lasts more than 1 week. This is even more important if you are in a high-risk group, such as: 10 of 11 Discharge Instructions Being an older adult Having a weak immune system (such as from cancer treatment) Having inflammatory bowel disease (Crohn's disease or colitis) If a stool (diarrhea) sample was taken, you may call in 2 days (or as directed) for the results. When to get medical advice Call your healthcare provider right away if any of these occur: More belly pain or constant lower right belly pain Lasting vomiting (can't keep liquids down) Frequent diarrhea (more than 5 times a day) Blood in vomit or stool (black or red color) Eating or drinking less Dark urine, reduced urine output Weakness, dizziness Drowsiness Fever of 100.4F (38C) or higher, or as directed by your provider New rash Symptoms get worse or you have new symptoms Call 911 Call 911 if any of these occur: Trouble breathing Feeling confused Severe drowsiness or trouble waking up Fainting or loss of consciousness Fast heart rate Seizure Stiff neck ED VISIT SUMMARY Observed: 01/29/2025 4:55 AM Status: F Source: [facility] Visit Overview Visit Overview [address] [address] [id number] 01/29/2025 Patient: TOR BERMAN Sex: Female : 1990 Age: 34y 01/29/2025 07:26 PM EDT ED Arrival:04:55 01/29/2025 EDT Status: Recent Travel:no Language:eng Adv Directive:No Isolation Status: Ethnicity:N Fall Risk:no risk Infectious Disease Exposure:no Measurements:5'6" / 167.6 Self-Harm Status:risk Sepsis Screen:negative cm 115.0 lb / 52.2 kg Chief Complaint:ABDOMINAL PAIN, DIARRHEA, NAUSEA, VOMITING, (910 ), and (Started at midnight toninght, multiple episodes of diarrhea and vomiting. ) ALLERGIES Haldol Penicillins HOME MEDICATIONS lexapro: 20 mg once a day . LORazepam IntensoL 2 mg/mL oral concentrate: 1 mg three times a day as needed. 3 Visit Overview oxyCODONE 10 mg tablet: every 6 hours as needed. zofran: 4 mg every 6 hours as needed. PAST MEDICAL HISTORY / PROBLEMS Cancer. stage 3 cervicle Renal Failure See nurses notes PAST SURGICAL HISTORY nephrostomy tube SOCIAL HISTORY Smoking status: Yes Alcohol use: No Drug use: Yes ED COURSE MEDICATIONS GIVEN IN EMERGENCY DEPARTMENT 05:50 01/29/25 Ondansetron IVP 4 mg over 1 minute(s) 05:50 01/29/25 IV NS 0.9 % 1000 mL 999 mL/hr over 1 hour(s) 05:51 01/29/25 MORPHine IVP 4 mg over 1 minute(s) 06:46 01/29/25 Reglan IVP 10 mg over 1 minute(s) 07:29 01/29/25 IV NS 0.9 % 1000 mL 500 mL/hr CefTRIAXone (Rocephin) IVPB 2gm/50ml NS 2 g diluted in sodium chloride IVPB 0.9 08:04 01/29/25 % Minibag+ 50 mL 100 mL/hr IV SITE INFORMATION INTAKE OUTPUT REASSESMENT (most recent) 2 of 3 Visit Overview 05:31 01/29/25. To room via stretcher. GENERAL / NEURO / PSYCH: Alert. Oriented X 4. HEENT: Mucous membranes are pink. RESPIRATORY: Respirations not labored. Breath sounds within normal limits. CVS: Normal sinus rhythm noted. Capillary refill less than 2 seconds. GI / : The patient has had nausea and diarrhea. Emesis noted. Abdomen soft. Abdominal tenderness. Hyperactive bowel sounds in all quadrants. SKIN: Skin is warm and dry. VITAL SIGNS First Vitals Last Vitals Temp 05:14 01/29/25 97.8 F Temp 08:36 01/29/25 BP 05:14 01/29/25 164/103 BP 08:36 01/29/25 133/93 HR 05:14 01/29/25 62 HR 08:36 01/29/25 78 RR 05:14 01/29/25 16 RR 08:36 01/29/25 O2 Sat 05:14 01/29/25 100% RA O2 Sat 08:36 01/29/25 Pain 05:14 01/29/25 Pain 08:36 01/29/25 ETCO2 05:14 01/29/25 ETCO2 08:36 01/29/25 GCS 05:14 01/29/25 GCS 08:36 01/29/25 RTS 05:14 01/29/25 RTS 08:36 01/29/25 PROCEDURES NURSING INTERVENTIONS LABS / STUDIES LABS / STUDIES ORDERED CBC w Diff CMP HCG, Qual Serum Urinalysis Urine Culture [CCL] CLINICAL IMPRESSION ACUTE URINARY TRACT INFECTION WITH PYELONEPHRITIS ASSOCIATED WITH INDWELLING CATHETER DIARRHEA VOMITING WITH NAUSEA 3 of 3 ED NURSES CLINICAL NOTE Observed: 2024 4:55 AM Status: F Source: [facility] Nurse Narrative Nurse Clinical Narrative [facility] [address] [place] [address] [phone] 01/29/2025 Patient: TOR BERMAN Sex: Female : 1990 Age: 34y Primary Insurance: MEDICARE OUTPATIENT Policy Number: [id number] Subscriber: Other Disposition: Discharge Disposition Decision Time: 07:40 01/29/2025 Departure Time: 08:36 01/29/2025 TRIAGE Arrived by EMS. Historian: (patient). Triage time: 05:00 01/29/2025. Acuity: LEVEL 3. Chief Complaint: ABDOMINAL PAIN, NAUSEA, VOMITING and DIARRHEA. This started last night. ( Started at midnight toninght, multiple episodes of diarrhea and vomiting.). The patient has had nausea, vomiting and diarrhea. The patient has had severe, sharp, constant abdominal pain (9/10). -- 05:16 01/29/25 EDT Sandra Chavez R.N. 05:01/29/25. BP: 164/103 (regular cuff) taken on left arm, while sitting. MAP: 123. HR: 62. Regular and normal rate. RR: 16. Regular and unlabored. O2 saturation: 100% on room air. Temperature: 97.8 F (oral). -- 05:14 01/29/25 EDT Sandra Chavez R.N. 05:01/29/25. Pain level now 8/10. Describes the pain as sharp. (abdominal, back, bilateral flank). -- 05:15 01/29/25 EDT Sandra Chavez R.N. 05:01/29/25. SEPSIS SCREEN: NEGATIVE. SIRS criteria negative. No possible sources of infection. -- 05:16 01/29/25 EDT Sandra Chavez R.N. Measurements: 05:15 01/29/25 Wt: 52.2 kg, Ht/Aden: 66.0 in, BMI: 18.56 -- 05:15 01/29/25 EDT Sandra Chavez R.N. 1 of 5 Nurse Narrative Medications: zofran: 4 mg every 6 hours as needed. -- 05:12 01/29/25 EDT Sandra Chavez R.N. lexapro: 20 mg once a day . -- 05:12 01/29/25 EDT Sandra Chavez R.N. LORazepam IntensoL 2 mg/mL oral concentrate: 1 mg three times a day as needed. -- 05:12 01/29/25 EDT Sandra Chavez R.N. oxyCODONE 10 mg tablet: every 6 hours as needed. -- 05:12 01/29/25 EDT Sandra Chavez R.N. Allergies: Penicillins -- 05:01/29/25 EDT Sandra Chavez R.N. Haldol -- 05:01/29/25 EDT Sandra Chavez R.N. Problems: Renal Failure -- 05:12 01/29/25 EDT Sandra Chavez R.N. Cancer. stage 3 cervicle -- 05:12 01/29/25 LILIANAT Sandra Chavez R.N. ADDITIONAL SURGERIES: nephrostomy tube -- 05:13 01/29/25 LILIANAT Sandra Chavez R.N. cervicle biopsy -- 05:01/29/25 LILIANAT Sandra Chavez R.N. History 05:00 01/29/25. SOCIAL HX: Smoker- current status unknown. Regular vaping. Weekly drug use: marijuana. No alcohol use. The patient has not traveled outside the [place] Infectious disease exposure: No infectious disease exposure. ABUSE ASSESSMENT: The patient answered "yes" to the question(s) "Do you feel safe in your home?" and "no" to the question(s) "Are you afraid to go home?". SELF HARM ASSESSMENT: Self harm assessment was performed. The patient answered no to the question(s) "Have you recently felt down, depressed, or hopeless?" and "Do you have thoughts of harming or killing yourself?". 2 of 5 Nurse Narrative FALL RISK ASSESSMENT: Fall risk assessment completed. No risk factors identified. -- 05:16 03/29/25 EDT Sandra Chavez R.N. Interventions 05:00 01/29/25. Identification band and allergy band on patient. Advanced care plan discussed with patient. Patient does not have advanced directive. -- 05:16 01/29/25 EDT Sandra Chavez R.N. PHYSICAL ASSESSMENT 05:31 01/29/25. To room via stretcher. GENERAL / NEURO / PSYCH: Alert. Oriented X 4. HEENT: Mucous membranes are pink. RESPIRATORY: Respirations not labored. Breath sounds within normal limits. CVS: Normal sinus rhythm noted. Capillary refill less than 2 seconds. GI / : The patient has had nausea and diarrhea. Emesis noted. Abdomen soft. Abdominal tenderness. Hyperactive bowel sounds in all quadrants. SKIN: Skin is warm and dry. -- 05:31 01/29/25 EDT Sandra Chavez R.N. NURSING PROGRESS NOTES 05:32 01/29/25. Rounding: Pain: assessed pain level. Personal care / toileting: assisted with toileting. Proximity of possessions / care items: call light within easy reach. Set expectations: advised patient of rounding protocol timing. Two patient identifiers checked. Call light placed in reach. Side rails up. Bed placed in lowest position. Brakes of bed on. -- 05:32 01/29/25 EDT Sandra Chavez R.N. 05:44 01/29/25. Site #1 started via IV in the right hand with a 20g angiocath with aseptic technique and good blood return; 2 attempts. Blood drawn: rainbow set tube(s). Labeled in the presence of the patient and sent to the lab. Saline lock flushed with 5 mL saline. -- 05:49 01/29/25 EDT Sandra Chavez R.N. 05:50 01/29/25. Ondansetron IVP 4 mg given over 1 minute(s) via Site# 1. Allergies verified and confirmed 5 rights. IV patency established. IV site checked: no pain, redness, or swelling. IV flushed thoroughly pre-medication administration. Information reviewed with patient including reason for taking this medication. Verbalizes understanding. -- 05:50 01/29/25 LILIANAT Sandra Chavez R.N. 05:50 01/29/25. IV NS 0.9 % 1000 mL started in bag#1 1000 mL at 999 mL/hr over 1 hour(s) via Site# 1. Allergies verified and confirmed 5 rights. IV patency established. IV site checked: no pain, redness, or swelling. IV flushed thoroughly pre-medication administration. Information reviewed with patient including reason for taking this medication. Verbalizes understanding. Completed per protocol. -- 05:51 01/29/25 EDT Sandra Chavez R.N. 05:51 01/29/25. MORPHine IVP 4 mg given over 1 minute(s) via Site# 1. Allergies verified and confirmed 5 rights. IV patency established. IV site checked: no pain, redness, or swelling. IV flushed thoroughly 3 of 5 Nurse Narrative pre-medication administration. Information reviewed with patient including reason for taking this medication. Verbalizes understanding. -- 05:51 01/29/25 EDT Sandra Chavez R.N. 06:46 01/29/25. Reglan IVP 10 mg given over 1 minute(s) via Site# 1. Allergies verified and confirmed 5 rights. IV patency established. IV site checked: no pain, redness, or swelling. IV flushed thoroughly pre-medication administration. Information reviewed with patient including reason for taking this medication. Verbalizes understanding. -- 06:47 01/29/25 EDT Sandra Chavez R.N. 07:01/29/25. Care transferred and report given (JAMAL Laguna). -- 07:14 01/29/25 EDT Sandra Chavez R.N. 07:01/29/25. Rounding: Pain: denies pain. Position: states comfortable. Proximity of possessions / care items: call light within easy reach. Plug ins: checked status of equipment in use; located all cords, tubes, and lines to prevent fall hazard. Set expectations: advised patient of rounding protocol timing and asked if they needed anything else at this time. (Pt states nausea has improved significantly since arriving to the ED. ). -- 07:22 01/29/25 EDT Jase Toth R.N. 07:01/29/25. IV NS 0.9 %: Medication Discontinued. bag #1 infused. Total amount infused: 1000 mL. -- 07:30 01/29/25 [facility] Jase Toth R.N. 07:29 01/29/25. IV NS 0.9 % 1000 mL started in bag#2 1000 mL at 500 mL/hr via Site# 1. Allergies verified and confirmed 5 rights. IV patency established. IV site checked: no pain, redness, or swelling. IV flushed thoroughly pre-medication administration. Information reviewed with patient including reason for taking this medication, signs of allergic reaction and precautions. Verbalizes understanding. Completed per protocol. -- 07:30 01/29/25 [facility] Jase Toth R.N. 08:04 01/29/25. CefTRIAXone (Rocephin) IVPB 2gm/50ml NS 2 g started at 100 mL/hr diluted in sodium chloride IVPB 0.9 % Minibag+ 50 mL via Site# 1. Allergies verified and confirmed 5 rights. IV patency established. IV site checked: no pain, redness, or swelling. IV flushed thoroughly pre-medication administration. Information reviewed with patient including reason for taking this medication, signs of allergic reaction and precautions. Verbalizes understanding. Completed per protocol. -- 08:06 01/29/25 GINNY Toth R.NApril DISPOSITION / DISCHARGE 08:01/29/25. IV NS 0.9 %: Medication Discontinued. bag #2 discontinued. Total amount infused: 700 mL. -- 08:37 01/29/25 Charlie Toth R.N. 08:33 01/29/25. CefTRIAXone (Rocephin) IVPB 2gm/50ml NS: Medication Discontinued. IV completed. Total amount infused: 50 mL. -- 08:38 01/29/25 [facility] Jase Toth R.N. 08:33 01/29/25. Site #1 removed upon discharge. Catheter intact. Bandage applied. -- 08:38 01/29/25 GINNY oTth R.N. Departure time: 08:36 01/29/2025. Condition at departure: improved and stable. No learning barriers present. Discharge instructions provided and reviewed with the patient. Reviewed warnings. Reviewed medication(s). Treatments reviewed. Reviewed referrals. Patient verbalized understanding. Written instructions provided in [place]. The patient was discharged by the physician. The patient was discharged home. The patient left ambulatory and via private vehicle. Family member driving. -- 08:40 01/29/25 EDT Jase Toth R.N. 4 of 5 Nurse Narrative 08:36 01/29/25. RR: 16. Regular and unlabored. O2 saturation: 99% on room air. Temperature: Deferred . Pain level now 4/10. -- 08:39 01/29/25 EDT Jase Toth R.N. 08:36 01/29/25. BP: 133/93 MAP: 113 mmHg. HR: 78 bpm. -- 08:39 01/29/25 EDT Jase Toth R.N. (Electronically signed by Jase Toth R.N. 01/29/25 14:59:08 EDT) Generated by [facility] 5 of 5 ED PHYSICIAN CLINICAL REPORT Observed: 0 01/29/2025 4:55 AM Status: F Source: [facility] Narrative Physician Clinical Narrative [address] [place] [address] [phone] 01/29/2025 Patient: TOR BERMAN Sex: Female : 1990 Age: 34y Primary Insurance: MEDICARE OUTPATIENT Policy Number: [id number] Subscriber: Other Disposition: Discharge Disposition Decision Time: 07:40 01/29/2025 Departure Time: 08:36 01/29/2025 Measurements Wt: 52.2 kg, Ht/Aden: 66.0 in, BMI: 18.56 Initial Vital Sign Measured Time BP MAP HR RR O2Sat ETCO2 Temp Pain GCS RTS 05:14 01/29/2025 164/103 123 62 16 100% RA 97.8 F Time Seen: 04:55 01/29/2025. Arrived- By ambulance. Historian- patient. Independent historian- EMS personnel. HISTORY OF PRESENT ILLNESS Chief Complaint: VOMITING and DIARRHEA. Is still present. The patient has had nausea, vomiting, diarrhea and moderate abdominal pain. The pain is described as generalized and associated with nausea, vomiting and diarrhea. The illness is described as moderate. Similar symptoms previously. Patient has had similar symptoms several times. Recent medical care: The patient was seen recently at this facility. Narrative REVIEW OF SYSTEMS MUSCULOSKELETAL: The patient has had back pain. CONSTITUTIONAL: No fever or muscle aches. : No difficulty with urination or dark urine. NEUROLOGICAL: No headache, dizziness or fainting episodes. THROAT: No sore throat. RESPIRATORY: No cough or difficulty breathing. CVS: No chest pain. SKIN: No skin rash or jaundice. PAST HISTORY See nurses notes. Cancer: (stage 3 cervicle) Renal Failure Surgeries: cervicle biopsy nephrostomy tube Medications: lexapro: 20 mg once a day . LORazepam IntensoL 2 mg/mL oral concentrate: 1 mg three times a day as needed. oxyCODONE 10 mg tablet: every 6 hours as needed. zofran: 4 mg every 6 hours as needed. Allergies: Haldol Penicillins SOCIAL HISTORY Smoker- current status unknown. Regular vaping. Drug use: marijuana. No alcohol use. ADDITIONAL NOTES The nursing notes have been reviewed. PHYSICAL EXAM Narrative Appearance: Alert. Oriented X3. Patient in mild distress. Eyes: Pupils equal, round and reactive to light. ENT: Nose normal. Dry mucous membranes present. Neck: Normal inspection. Neck supple. CVS: Normal heart rate and rhythm. Heart sounds normal. Pulses normal. Respiratory: No respiratory distress. Painless inspiration. Breath sounds normal. Abdomen: Soft. Mild tenderness diffusely. No guarding or rebound tenderness. Bowel sounds normal. Back: Normal inspection. Skin: Skin warm and dry. No rash. Extremities: Extremities exhibit normal ROM. No lower extremity edema. Neuro: Oriented X 3. No motor deficit. No sensory deficit. LABS, X-RAYS, AND EKG Laboratory Tests: CBC + DIFF Final BINA: 01/29/2025 05:25:00 EDT MsgRcvd: 01/29/2025 06:35 EDT Lab Test Result Reference Status Received Comments 01/29/2025 06:35 CBC-COMPLETE CBC + DIFF Final EDT BLOOD COUNT 17.4 x 10/UL 01/29/2025 06:35 WBC 4.5 - 10.8 Final Above high normal EDT 01/29/2025 06:35 RBC 4.47 x 10/UL 4.10 - 5.30 Final EDT 01/29/2025 06:35 HEMOGLOBIN 15.2 g/dl 12.0 - 16.0 Final EDT 01/29/2025 06:35 HEMATOCRIT 43.6 % 34.0 - 46.0 Final EDT 01/29/2025 06:35 MCV 98 fl 80 - 99 Final EDT 3 of 19 Narrative Lab Test Result Reference Status Received Comments 34 pg 01/29/2025 06:35 MCH 27 - 33 Final Above high normal EDT 01/29/2025 06:35 MCHC 35 X10 3 32 - 36 Final EDT 01/29/2025 06:35 RDW/CV 13.6 % 12.0 - 15.6 Final EDT 01/29/2025 06:35 PLATELET 437 x10/UL 150 - 450 Final EDT 01/29/2025 06:35 AUTOMATED MPV 8.2 fl 6.6 - 10.5 Final EDT DIFFERENTIAL 84.3 % 01/29/2025 06:35 NEUT % 46.0 - 76.0 Final Above high normal EDT 4.8 % 01/29/2025 06:35 LYMPH % 20.0 - 45.0 Final Below low normal EDT 01/29/2025 06:35 MONOS % 10.0 % 0.0 - 10.0 Final EDT 01/29/2025 06:35 EO % 0.7 % 0.0 - 7.0 Final EDT 01/29/2025 06:35 BASO % 0.2 % 0.0 - 2.0 Final EDT 01/29/2025 06:35 Lymph # 0.83 x10/UL 0.80 - 2.80 Final EDT 14.65 x10/UL 01/29/2025 06:35 Neut # 1.50 - 7.10 Final Above high normal EDT 1.74 x10/UL 01/29/2025 06:35 Green # 0.20 - 1.00 Final Above high normal EDT 4 of 19 Narrative Lab Test Result Reference Status Received Comments 01/29/2025 06:35 EO # 0.12 x10/UL 0.00 - 0.50 Final EDT 01/29/2025 06:35 Baso # 0.04 x10/UL 0.00 - 0.10 Final EDT 01/29/2025 06:35 MANUAL DIFF SEE BELOW Final EDT 01/29/2025 06:35 BANDS 2% 0-5 Final EDT 83 % 01/29/2025 06:35 SEGS 46 - 76 Final Above high normal EDT 4% 01/29/2025 06:35 LYMPH 20 - 45 Final Below low normal EDT 11 % 01/29/2025 06:35 MONOS 0 - 10 Final Above high normal EDT 01/29/2025 06:35 MORPHOLOGY REVIEWED Final EDT CMP with eGFR Final BINA: 01/29/2025 05:25:00 EDT MsgRcvd: 01/29/2025 06:30 EDT Lab Test Result Reference Status Received Comments COMPREHENSIVE 01/29/2025 CMP with eGFR Final METABOLIC 06:30 EDT PANEL 01/29/2025 SODIUM 142 mmol/l 136 - 145 Final 06:30 EDT 3.3 mmol/L 01/29/2025 POTASSIUM 3.5 - 5.1 Final Below low normal 06:30 EDT 5 of Narrative Lab Test Result Reference Status Received Comments 01/29/2025 CHLORIDE 106 mmol/L 98 - 107 Final 06:30 EDT 01/29/2025 CO2 24.0 mmol/L 21.0 - 32.0 Final 06:30 EDT 166 mg/dl 01/29/2025 GLUCOSE Above high 74 - 106 Final 06:30 EDT normal 01/29/2025 BUN 10 mg/dl 7 - 18 Final 06:30 EDT 01/29/2025 CREATININE 1.01 mg/dl 0.55 - 1.02 Final 06:30 EDT 01/29/2025 AST/SGOT 14 U/L 13 - 39 Final 06:30 EDT 01/29/2025 ALK PHOS 91 U/L 46 - 116 Final 06:30 EDT 01/29/2025 CALCIUM 9.4 mg/dl 8.5 - 10.1 Final 06:30 EDT TOTAL 01/29/2025 7.1 g/dl 6.4 - 8.2 Final PROTEIN 06:30 EDT 01/29/2025 ALBUMIN 4.1 g/dL 3.4 - 5.0 Final 06:30 EDT 01/29/2025 GLOBULIN 3.0 G/DL 1.5 - 3.8 Final 06:30 EDT 01/29/2025 A/G RATIO 1.4 0.9 - 1.6 Final 06:30 EDT 01/29/2025 TOTAL BILI 0.4 mg/dl 0.2 - 1.0 Final 06:30 EDT 6 of 19 Narrative Lab Test Result Reference Status Received Comments 01/29/2025 B/C RATIO 10 ratio 0 - 30 Final 06:30 EDT 01/29/2025 ALT/SGPT 19 U/L 16 - 63 Final 06:30 EDT 01/29/2025 ANION GAP 15 mmol/L 10 - 20 Final 06:30 EDT 01/29/2025 AGE 34 years Final 06:30 EDT 01/29/2025 eGFR >60 ML/MINUTE 60 - 999 Final 06:30 EDT 7 of 19 Narrative Lab Test Result Reference Status Received Comments ACCORDING TO THE NATIONAL KIDNEY DISEASE EDUCATION PROGRAM(NKDE), A NORMAL eGFR IS A VALUE GREATER THAN OR EQUAL TO 60 ML/MIN/1.73 SQ METERS. 01/29/2025 CHRONIC KIDNEY eGFR(AA) >60 ML/MINUTE 60 - 999 Final 06:30 EDT DISEASE: <60mL/MIN/1.73 SQ METERS KIDNEY FAILURE: <15mL/MIN/1.73 SQ METERS THIS TEST SHOULD ONLY BE USED FOR PATIENTS 18 YEARS OF AGE AND OLDER. SERUM QUAL Final BINA: 01/29/2025 05:25:00 EDT MsgRcvd: 01/29/2025 06:18 EDT Lab Test Result Reference Status Received Comments 01/29/2025 06:18 NEGATIVE NEGATIVE Final SER EDT 8 of 19 Narrative Lab Test Result Reference Status Received Comments 01/29/2025 06:18 INTERNAL QC PASS Final EDT EXTERNAL QC 01/29/2025 06:18 YES Final DONE? EDT PROGRESS AND PROCEDURES COORDINATION OF CARE: ED care transferred. Case discussed with dr winter. Assumed care. Brief hx: vomitng, diarrhea, chronic abd pain. Pending items: lab (urinalysis). Tentative impression: dehydration. possible uti. Expected disposition: discharge from ED. MEDICAL DECISION MAKING: Ordered tests include complete blood count, chemistries, liver function tests and urinalysis. The patient has been stable. IV fluids and antiemetics have been given. (34-year-old white female complaining of nausea vomiting and diarrhea. Patient states I can not stop throwing up". She states his symptoms started around midnight tonight. She states that "I have this all the time". Usually with IV fluids and Zofran she does improve. She does also complain of some diffuse generalized abdominal pain which is pretty typical for this. We have done CT scans of her abdomen multiple times. She did have a CT scan of her abdomen and pelvis here on December 10 and then again on November 06 of this year. She also has had a CT scan of the abdomen and pelvis here on August 31 and May 17 of this year. No acute findings were noted. She is asking for something for pain. On exam her abdomen is soft with some mild diffuse generalized tenderness but no guarding or rigidity. So at this point I am going to try to avoid scanning her again. She does have a left nephrostomy tube. She states that when she was diagnosed with cervical cancer it had Mets to the left kidney and that is why she has a nephrostomy tube. She does follow with Dr. Hill for Urology in [place]. Her family doctor is Dr. Solis Pace at [facility] CLINICAL IMPRESSION Vomiting with nausea. Diarrhea DISCHARGE INSTRUCTIONS Drink plenty of fluids. Take clear liquids only (frequent sips) today, for the next 24 hours. 9 of 19 Narrative Warnings: GENERAL WARNINGS: Return or contact your physician immediately if your condition worsens or changes unexpectedly, if not improving as expected, or if other problems arise. Prescription Medications: ondansetron 4 mg disintegrating tablet: Take 1 tablet on tongue every eight hours for nausea/vomiting for 5 days, dispense 15 tablet. Refills 0. Pharmacy: [facility] [employer]. [address] [place] [address]. Follow-up: Follow up with doctor in three days. Call for an appointment. Reason for referral: evaluation and treatment. Summary of care provided to patient. Dr Solis Pace, [address] [facility] [address]. [place], [place]. [address] . Understanding of the discharge instructions verbalized by patient. (Electronically signed by Gonzalez Pineda D.O. 01/29/25 19:26:24 EDT) Generated by [facility] Physician Clinical Narrative [address] [place] [address] [phone] 01/29/2025 Patient: TOR BERMAN Sex: Female : 1990 Age: 34y Primary Insurance: MEDICARE OUTPATIENT Policy Number: [id number] Subscriber: Other Disposition: Discharge Disposition Decision Time: 07:40 01/29/2025 Departure Time: 08:36 01/29/2025 Measurements Wt: 52.2 kg, Ht/Aden: 66.0 in, BMI: 18.56 Initial Vital Sign 10 of 19 Narrative Measured Time BP MAP HR RR O2Sat ETCO2 Temp Pain GCS RTS 05:14 01/29/2025 164/103 123 62 16 100% RA 97.8 F PAST HISTORY Cancer: (stage 3 cervicle) Renal Failure Surgeries: cervicle biopsy nephrostomy tube Medications: lexapro: 20 mg once a day . LORazepam IntensoL 2 mg/mL oral concentrate: 1 mg three times a day as needed. oxyCODONE 10 mg tablet: every 6 hours as needed. zofran: 4 mg every 6 hours as needed. Allergies: Haldol Penicillins LABS, X-RAYS, AND EKG Laboratory Tests: CBC + DIFF Final BINA: 01/29/2025 05:25:00 EDT MsgRcvd: 01/29/2025 06:35 EDT Lab Test Result Reference Status Received Comments 01/29/2025 06:35 CBC-COMPLETE CBC + DIFF Final EDT BLOOD COUNT 17.4 x 10/UL 01/29/2025 06:35 WBC 4.5 - 10.8 Final Above high normal EDT 11 of 19 Narrative Lab Test Result Reference Status Received Comments 01/29/2025 06:35 RBC 4.47 x 10/UL 4.10 - 5.30 Final EDT 01/29/2025 06:35 HEMOGLOBIN 15.2 g/dl 12.0 - 16.0 Final EDT 01/29/2025 06:35 HEMATOCRIT 43.6 % 34.0 - 46.0 Final EDT 01/29/2025 06:35 MCV 98 fl 80 - 99 Final EDT 34 pg 01/29/2025 06:35 MCH 27 - 33 Final Above high normal EDT 01/29/2025 06:35 MCHC 35 X10 3 32 - 36 Final EDT 01/29/2025 06:35 RDW/CV 13.6 % 12.0 - 15.6 Final EDT 01/29/2025 06:35 PLATELET 437 x10/UL 150 - 450 Final EDT 01/29/2025 06:35 AUTOMATED MPV 8.2 fl 6.6 - 10.5 Final EDT DIFFERENTIAL 84.3 % 01/29/2025 06:35 NEUT % 46.0 - 76.0 Final Above high normal EDT 4.8 % 01/29/2025 06:35 LYMPH % 20.0 - 45.0 Final Below low normal EDT 01/29/2025 06:35 MONOS % 10.0 % 0.0 - 10.0 Final EDT 01/29/2025 06:35 EO % 0.7 % 0.0 - 7.0 Final EDT 12 of 19 Narrative Lab Test Result Reference Status Received Comments 01/29/2025 06:35 BASO % 0.2 % 0.0 - 2.0 Final EDT 01/29/2025 06:35 Lymph # 0.83 x10/UL 0.80 - 2.80 Final EDT 14.65 x10/UL 01/29/2025 06:35 Neut # 1.50 - 7.10 Final Above high normal EDT 1.74 x10/UL 01/29/2025 06:35 Green # 0.20 - 1.00 Final Above high normal EDT 01/29/2025 06:35 EO # 0.12 x10/UL 0.00 - 0.50 Final EDT 01/29/2025 06:35 Baso # 0.04 x10/UL 0.00 - 0.10 Final EDT 01/29/2025 06:35 MANUAL DIFF SEE BELOW Final EDT 01/29/2025 06:35 BANDS 2% 0-5 Final EDT 83 % 01/29/2025 06:35 SEGS 46 - 76 Final Above high normal EDT 4% 01/29/2025 06:35 LYMPH 20 - 45 Final Below low normal EDT 11 % 01/29/2025 06:35 MONOS 0 - 10 Final Above high normal EDT 01/29/2025 06:35 MORPHOLOGY REVIEWED Final EDT CMP with eGFR Final BINA: 01/29/2025 05:25:00 EDT MsgRcvd: 01/29/2025 06:30 EDT 13 of 19 Narrative Lab Test Result Reference Status Received Comments COMPREHENSIVE 01/29/2025 CMP with eGFR Final METABOLIC 06:30 EDT PANEL 01/29/2025 SODIUM 142 mmol/l 136 - 145 Final 06:30 EDT 3.3 mmol/L 01/29/2025 POTASSIUM 3.5 - 5.1 Final Below low normal 06:30 EDT 01/29/2025 CHLORIDE 106 mmol/L 98 - 107 Final 06:30 EDT 01/29/2025 CO2 24.0 mmol/L 21.0 - 32.0 Final 06:30 EDT 166 mg/dl 01/29/2025 GLUCOSE Above high 74 - 106 Final 06:30 EDT normal 01/29/2025 BUN 10 mg/dl 7 - 18 Final 06:30 EDT 01/29/2025 CREATININE 1.01 mg/dl 0.55 - 1.02 Final 06:30 EDT 01/29/2025 AST/SGOT 14 U/L 13 - 39 Final 06:30 EDT 01/29/2025 ALK PHOS 91 U/L 46 - 116 Final 06:30 EDT 01/29/2025 CALCIUM 9.4 mg/dl 8.5 - 10.1 Final 06:30 EDT TOTAL 01/29/2025 7.1 g/dl 6.4 - 8.2 Final PROTEIN 06:30 EDT 14 of 19 Narrative Lab Test Result Reference Status Received Comments 01/29/2025 ALBUMIN 4.1 g/dL 3.4 - 5.0 Final 06:30 EDT 01/29/2025 GLOBULIN 3.0 G/DL 1.5 - 3.8 Final 06:30 EDT 01/29/2025 A/G RATIO 1.4 0.9 - 1.6 Final 06:30 EDT 01/29/2025 TOTAL BILI 0.4 mg/dl 0.2 - 1.0 Final 06:30 EDT 01/29/2025 B/C RATIO 10 ratio 0 - 30 Final 06:30 EDT 01/29/2025 ALT/SGPT 19 U/L 16 - 63 Final 06:30 EDT 01/29/2025 ANION GAP 15 mmol/L 10 - 20 Final 06:30 EDT 01/29/2025 AGE 34 years Final 06:30 EDT 01/29/2025 eGFR >60 ML/MINUTE 60 - 999 Final 06:30 EDT 15 of 19 Narrative Lab Test Result Reference Status Received Comments ACCORDING TO THE NATIONAL KIDNEY DISEASE EDUCATION PROGRAM(NKDE), A NORMAL eGFR IS A VALUE GREATER THAN OR EQUAL TO 60 ML/MIN/1.73 SQ METERS. 01/29/2025 CHRONIC KIDNEY eGFR(AA) >60 ML/MINUTE 60 - 999 Final 06:30 EDT DISEASE: <60mL/MIN/1.73 SQ METERS KIDNEY FAILURE: <15mL/MIN/1.73 SQ METERS THIS TEST SHOULD ONLY BE USED FOR PATIENTS 18 YEARS OF AGE AND OLDER. SERUM QUAL Final BINA: 01/29/2025 05:25:00 EDT MsgRcvd: 01/29/2025 06:18 EDT Lab Test Result Reference Status Received Comments 01/29/2025 06:18 NEGATIVE NEGATIVE Final SER EDT 16 of 19 Narrative Lab Test Result Reference Status Received Comments 01/29/2025 06:18 INTERNAL QC PASS Final EDT EXTERNAL QC 01/29/2025 06:18 YES Final DONE? EDT URINALYSIS Final BINA: 01/29/2025 07:12:00 EDT MsgRcvd: 01/29/2025 07:32 EDT Lab Test Result Reference Status Received Comments 01/29/2025 07:32 URINALYSIS Final URINALYSIS EDT 01/29/2025 07:32 Specimen Type R New Order EDT NORMAL: 01/29/2025 07:32 Color p.yel Final YELLOW EDT SL. CLOUDY NORMAL: 01/29/2025 07:32 Clarity Final Abnormal CLEAR EDT NORMAL: 01/29/2025 07:32 ph 7 Final 5.0-8.0 EDT 15 NORMAL: 01/29/2025 07:32 Protein Final Abnormal NEGATIVE EDT NORMAL: 01/29/2025 07:32 Glucose NORM Final NORMAL EDT NORMAL: 01/29/2025 07:32 Ketone NEG Final NEGATIVE EDT NORMAL: 01/29/2025 07:32 Bilirubin NEG Final NEGATIVE EDT 17 of 19 Narrative Lab Test Result Reference Status Received Comments 150 NORMAL: 01/29/2025 07:32 Blood Final Abnormal NEGATIVE EDT NORMAL: 01/29/2025 07:32 Urobilinog NORM Final NORMAL EDT NORMAL: 01/29/2025 07:32 Sp Stem 1.010 Final 1.010-1.030 EDT NORMAL: 01/29/2025 07:32 Nitrite NEG Final NEGATIVE EDT 500 NORMAL: 01/29/2025 07:32 Leukocytes Final Abnormal NEGATIVE EDT 01/29/2025 07:32 Microscopic SEE BELOW Final MICROSCOPIC EDT 01/29/2025 07:32 Wbc 16-25 0-5/hpf Final EDT 01/29/2025 07:32 Rbc 5-10 0-3/hpf Final EDT 01/29/2025 07:32 Casts NONE Final EDT 01/29/2025 07:32 Crystals NONE Final EDT 01/29/2025 07:32 Amorphous NONE Final EDT 01/29/2025 07:32 Bacteria TRACE Final EDT 01/29/2025 07:32 Epi Cells NONE Final EDT 18 of Narrative Lab Test Result Reference Status Received Comments 01/29/2025 07:32 Mucous NONE Final EDT 01/29/2025 07:32 Yeast 1+ Final EDT PROGRESS AND PROCEDURES Course of Care: (I assumed care of this patient upon my arrival. We are awaiting labs etc.. The urine returned looking mostly like UTI. On rechecked the patient was feeling much improved. She states that she has had Rocephin in the past without problems and so we will be given Rocephin IV in the ED and discharged on oral antibiotics. Urine culture will be ordered.). Disposition: Condition: good. Discharged in stable condition. Discharge decision based on the following: patient's condition is improved; patient's exam is improved. CLINICAL IMPRESSION Vomiting with nausea. Diarrhea. Acute urinary tract infection with pyelonephritis associated with indwelling catheter. DISCHARGE INSTRUCTIONS Prescription Medications: Ceftin 250 mg 2x/day. Follow-up: Follow up with your doctor in about two days if not better. (Electronically signed by Andrew Winter M.D. 01/29/25 09:31:17 EDT) Generated by [facility] ED ORDER SHEET ([facility] ONLY) Observed: 4:55 AM Status: F Source: [facility] Order Sheet Order Sheet [place] [address] [place] [address] [phone] 01/29/2025 Patient: TOR BERMAN Sex: Female : 1990 Age: 34y MEASUREMENTS: Wt: 52.2 kg, Ht/Aden: 66.0 in, BMI: 18.56 ALLERGIES: Haldol, Penicillins MEDICATION/IV/DRIP/FLUID ORDERS Order Description Priority Entered Acknowledged Completed IV NS 0.9 %1000 mL at 999 05:14 01/29/2025 05:16 05:51 mL/hr (NOW x1) Gonzalez Pineda D.O. 01/29/2025 01/29/2025 Yohana Zapata, R.N. Ondansetron IVP4 mg (NOW x1) 05:14 01/29/2025 05:16 05:50 Gonzalez Pineda D.O. 01/29/2025 01/29/2025 Yohana Zapata R.NApril MORPHine IVP4 mg (NOW x1, 05:29 01/29/2025 05:30 05:51 HIGH ALERT MEDICATION) Gonzalez Pineda D.O. 01/29/2025 01/29/2025 Yohana Zapata, R.N. Reason for ordering with alerts: Clinical consideration given --05:29 01/29/2025 Gonzalez Pineda D.O. Reglan IVP10 mg (NOW x1) 06:41 01/29/2025 06:44 06:47 Gonzalez Pineda D.O. 01/29/2025 01/29/2025 Yohana Zapata, R.N. Reason for ordering with alerts: Clinical consideration given --06:41 01/29/2025 Gonzalez Pineda D.O. 1 of 3 Order Sheet IV NS 0.9 %1000 mL at 500 07:03 01/29/2025 07:12 07:30 mL/hr (NOW x1) Gonzalez Pineda D.O. 01/29/2025 01/29/2025 Yohana Zapata R.NApril Reason for ordering with alerts: Clinical consideration given --07:03 01/29/2025 Gonzalez Pineda D.O. CefTRIAXone (Rocephin) IVPB 07:40 01/29/2025 07:41 08:06 2gm/50ml NS2 g diluted in Andrew Winter M.D. 01/29/2025 01/29/2025 sodium chloride IVPB 0.9 % Jase Eastep, Jase Eastep, Minibag+ 50 mL at 100 mL/hr R.N. R.N. (NOW x1) Reason for ordering with alerts: Does not appear to be a true allergy --07:40 01/29/2025 Andrew Winter M.D. LAB ORDERS Order Description Priority Entered Acknowledged Collected Completed CBC w Diff Stat Stat 05:14 01/29/2025 05:16 01/29/2025 05:30 01/29/2025 Kendra Stanford R.N. Anne Rutt R.N. CMP Stat Stat 05:14 01/29/2025 05:16 01/29/2025 05:30 01/29/2025 Kendra Stanford R.N. Sandra Chavez R.N. HCG, Qual Serum Stat Stat 05:14 01/29/2025 05:16 01/29/2025 05:30 01/29/2025 Kendra Stanford R.N. Anne Rutt, R.N. Urinalysis Stat Stat 05:14 01/29/2025 05:16 01/29/2025 07:12 01/29/2025 Kendra Stanford R.N. Sandra Chavez, R.N. Urine Culture [CCL] Stat Stat 07:45 01/29/2025 07:45 01/29/2025 07:45 01/29/2025 Natali Sandhu Lucas Eastep, R.N. R.N. DIAGNOSTIC STUDY ORDERS 2 of 3 Order Sheet Order Description Priority Entered Acknowledged Completed STAFF ORDERS Order Description Priority Entered Acknowledged Collected Completed [Electronically signed by Andrew Winter M.D. (01/29/2025 09:31 EDT)] 3 of 3 ED MED ADMINISTRATION DETAIL Observed: 0 01/29/2025 4:55 AM Status: F Source: [facility] Counter Top Maker Medication Administration Record [address] [place] [address] [id number] 01/29/2025 Patient: TOR BERMAN Sex: Female : 1990 Age: 34y MEASUREMENTS: Wt: 52.2 kg, Ht/Aden: 66.0 in, BMI: 18.56 ALLERGIES: Haldol, Penicillins Medication Ordered Medication Administration Date/Time IV NS 0.9 % 1000 05:01/29 IV NS 0.9 % 1000 mL started in bag#1 1000 mL at Started mL at 999 mL/hr 999 mL/hr over 1 hour(s) via Site# 1. Allergies verified and 05:50 01/29/2025 (NOW x1) confirmed 5 rights. IV patency established. IV site checked: no pain, Sandra Chavez R.N. redness, or swelling. IV flushed thoroughly pre-medication Stopped administration. Information reviewed with patient including reason 07:01/29/2025 for taking this medication. Verbalizes understanding. Completed per Jase Toht R.N. protocol. - 05:51 Sandra Chavez R.N. Scanned 07:01/29 Medication Discontinued: bag #1 infused. Total amount infused: 1000 mL. - 07:30 Jase Toth R.N. Ondansetron IVP 4 05:01/29 Ondansetron IVP 4 mg given over 1 minute(s) via Given mg (NOW x1) Site# 1. Allergies verified and confirmed 5 rights. IV patency 05:01/29/2025 established. IV site checked: no pain, redness, or swelling. IV Sandra Chavez R.N. flushed thoroughly pre-medication administration. Information Scanned reviewed with patient including reason for taking this medication. Verbalizes understanding. - 05:50 Sandra Chavez R.N. 1 of 3 Counter Top Maker Medication Ordered Medication Administration Date/Time MORPHine IVP 4 05:01/29 MORPHine IVP 4 mg given over 1 minute(s) via Site# Given mg (NOW x1, HIGH 1. Allergies verified and confirmed 5 rights. IV patency established. 05:51 01/29/2025 ALERT IV site checked: no pain, redness, or swelling. IV flushed thoroughly Sandra Chavez R.N. MEDICATION) pre-medication administration. Information reviewed with patient Scanned including reason for taking this medication. Verbalizes understanding. - 05:51 Sandra Chavez R.N. Reglan IVP 10 mg 06:46 01/29 Reglan IVP 10 mg given over 1 minute(s) via Site# 1. Given (NOW x1) Allergies verified and confirmed 5 rights. IV patency established. IV 06:46 01/29/2025 site checked: no pain, redness, or swelling. IV flushed thoroughly Sandra Chavez R.N. pre-medication administration. Information reviewed with patient Scanned including reason for taking this medication. Verbalizes understanding. - 06:47 Sandra Chavez R.N. IV NS 0.9 % 1000 07:29 01/29 IV NS 0.9 % 1000 mL started in bag#2 1000 mL at Started mL at 500 mL/hr 500 mL/hr via Site# 1. Allergies verified and confirmed 5 rights. IV 07:29 01/29/2025 (NOW x1) patency established. IV site checked: no pain, redness, or swelling. Jamison BarraganN. IV flushed thoroughly pre-medication administration. Information Stopped reviewed with patient including reason for taking this medication, 08:30 01/29/2025 signs of allergic reaction and precautions. Verbalizes Jase Toth R.N. understanding. Completed per protocol. - 07:30 Guevara Barragan R.N. 08:30 01/29 Medication Discontinued: bag #2 discontinued. Total amount infused: 700 mL. - 08:37 Jamison BarraganN. 2 of 3 Counter Top Maker Medication Ordered Medication Administration Date/Time CefTRIAXone 08:04 01/29 CefTRIAXone (Rocephin) IVPB 2gm/50ml NS 2 g Started (Rocephin) IVPB started at 100 mL/hr diluted in sodium chloride IVPB 0.9 % 08:04 01/29/2025 2gm/50ml NS 2 g Minibag+ 50 mL via Site# 1. Allergies verified and confirmed 5 Jasegautam Toth R.N. diluted in sodium rights. IV patency established. IV site checked: no pain, redness, or Stopped chloride IVPB 0.9 % swelling. IV flushed thoroughly pre-medication administration. 08:33 01/29/2025 Minibag+ 50 mL at Information reviewed with patient including reason for taking this Jase Eastep, R.N. 100 mL/hr (NOW x1) medication, signs of allergic reaction and precautions. Verbalizes Scanned understanding. Completed per protocol. - 08:06 Jasegautam Bustosep, R.N. 08:33 01/29 Medication Discontinued: IV completed. Total amount infused: 50 mL. - 08:38 Jasegautam Bustosep, R.N. 3 of 3 CBC + DIFF Collected: 5 5:40 AM Status: F Source: [facility] TYPE CODE TESTS RESULT OUT OF RANGE REFERENCE UNITS LAB CBC + DIFF(LOINC) CBC + DIFF Result Comment: CBC-COMPLETE BLOOD COUNT LAB WBC(LOINC) WBC 13.6 High 4.5 - 10.8 x 10EE3/UL LAB RBC(LOINC) RBC 4.43 4.10 - 5.30 x 10EE6/UL LAB HEMOGLOBIN(ISAIAH NC) HEMOGLOBIN 14.8 12.0 - 16.0 g/dl LAB HEMATOCRIT(ISAIAH NC) HEMATOCRIT 43.1 34.0 - 46.0 % LAB MCV(LOINC) MCV 97 80 - 99 fl LAB MCH(LOINC) MCH 34 High 27 - 33 pg LAB MCHC(LOINC) MCHC 34 32 - 36 X10 3 LAB RDW/CV(LOINC) RDW/CV 13.7 12.0 - 15.6 % LAB PLATELET(LOINC ) PLATELET 385 150 - 450 x10EE3/UL LAB MPV(LOINC) MPV 7.3 6.6 - 10.5 fl Result Comment: AUTOMATED DI FFERENTIAL LAB NEUT %(LOINC) NEUT % 78.0 High 46.0 - 76.0 % LAB LYMPH %(LOINC) LYMPH % 12.8 Low 20.0 - 45.0 % LAB MONOS %(LOINC) MONOS % 8.6 0.0 - 10.0 % LAB EO %(LOINC) EO % 0.5 0.0 - 7.0 % LAB BASO %(LOINC) BASO % 0.3 0.0 - 2.0 % LAB Lymph #(LOINC) Lymph # 1.74 0.80 - 2.80 x10EE 3/UL LAB Neut #(LOINC) Neut # 10.59 High 1.50 - 7.10 x10EE3 /UL LAB Green #(LOINC) Green # 1.16 High 0.20 - 1.00 x10EE3 /UL LAB EO #(LOINC) EO # 0.06 0.00 - 0.50 x10EE3/U L LAB Baso #(LOINC) Baso # 0.03 0.00 - 0.10 x10EE3 /UL LAB MANUAL DIFF(LOINC) MANUAL DIFF N/A LAB MORPHOLOGY(ISAIAH NC) MORPHOLOGY N/A Performed By: #### [id number] ## ## [place] [id number] SERUM QUAL Collected: 01/21/2025 5:40 AM S tatus: F Source: [facility] TYPE CODE TESTS RESULT OUT OF RANGE REFERENCE UNITS LAB SER(LOINC) SER NEGATIVE NEGATIVE LAB INTERNAL QC(LOINC) INTERNAL QC PASS LAB EXTERNAL QC DONE?(LOINC) EXTERNAL QC DONE? YES Performed By: #### [id number] ## ## [address] [address] CORONAVIRUS (SARS) ANTIGEN TEST Collect ed: 01/21/2025 5:40 AM Status: F Source: [facility] TYPE CODE TESTS RESULT OUT OF RANGE REFERENCE UNITS LAB SARS ANTIGEN(LOINC) SARS ANTIGEN NEGATIVE NORMAL: NEGATIVE LAB INTERNAL CONTROL(LOINC) INTERNAL CONTROL PASS LAB EXTERNAL QC DONE?(LOINC) EXTERNAL QC DONE? YES LAB SEND TO IC?(LOINC) SEND TO IC? NO Result Comment: SARS-CoV-2 THIS TEST IS BEING USED UNDER THE FDA EUA PROCEDURE. THIS ASSAY HAS BEEN VALIDATED AT [facility] FOR USE WITH NASAL AND NASOPHARYNGEAL SWAB SPECIMENS. INTERPRETIVE DATA TEST RESULTS SHOULD ALWAYS BE CONSIDERED IN THE CONTEXT OF CLINICAL OBSERVATIONS AND EPIDEMIOLOGICAL DATA IN MAKING FINAL DIAGNOSIS AND PATIENT MANAGEMENT DECISIONS. PATIENT MANAGEMENT SHOULD FOLLOW CURRENT CDC GUIDELINES. THE KRISTEN SARS ANTIGEN MAYNOR DOES NOT DIFFERENTIATE BETWEEN SARS-CoV & SARS-CoV-2. A POSITIVE TEST RESULT INDICATES THE PRESENCE OF SARS-CoV-2 NUCLEOCAPSID PROTEIN ANTIGEN, AND THE PATIENT IS INFECTED WITH THE VIRUS AND PRESUMED TO BE CONTAGIOUS. A NEGATIVE TEST RESULT FOR THIS TEST MEANS THAT SARS-CoV-2 NUCLEOCAPSID PROTEIN ANTIGEN WAS NOT PRESENT IN THE SPECIMEN ABOVE THE LIMIT OF DETECTION. HOWEVER, A NEGATIVE RESULT DOES NOT RULE OUT COVID-19 AND SHOULD NOT BE USED THE SOLE BASIS FOR TREATMENT OR PATIENT MANAGEMENT DECISIONS. A NEGATIVE RESULT DOES NOT EXCLUDE THE POSSIBILITY OF COVID-19. NEGATIVE RESULTS, FROM PATIENTS WITH SYMPTOM ONSET BEYOND FIVE DAYS, SHOULD BE TREATED PRESUMPTIVE AND CONFIRMATION WITH A MOLECULAR ASSAY, IF NECESSARY, FOR PATIENT MANAGEMENT, MAY BE PERFORMED. WHEN DIAGNOSTIC TESTING IS NEGATIVE, THE POSSIBLILTY OF A FALSE NEGATIVE RESULT SHOULD BE CONSIDERED IN THE CONTEXT OF A PATIENT'S RECENT EXPOSURES AND THE PRESENCE OF CLINICAL SIGNS AND SYMPTOMS CONSISTENT WITH COVID-19. THE POSSIBILITY OF A FALSE NEGATIVE RESULT SHOULD ESPECIALLY BE CONSIDERED IF THE PATIENT'S RECENT EXPOSURES OR CLINICAL PRESENTATION INDICATE THAT COVID-19 IS LIKELY, AND DIAGNOSTIC TESTS FOR OTHER CAUSES OF ILLNESS (e.g., OTHER RESPIRATORY ILLNESS) ARE NEGATIVE. IF COVID-19 IS STILL SUSPECTED BASED ON EXPOSURE HISTORY TOGETHER WITH OTHER CLINICAL FINDINGS, RE-TESTING SHOULD BE CONSIDERED BY HEALTHCARE PROVIDERS IN CONSULTATION WITH PUBLIC HEALTH AUTHORITIES. Performed By: #### [id number] ## ## [place] [id number] LIPASE Collected: 5:40 AM Status: F Source: [facility] TYPE CODE TESTS RESULT OUT OF RANGE REFERENCE UNITS LAB LIPASE(LOINC) LIPASE 10.0 Low 15.0 - 78.0 U/L Result Comment: *PLEASE NOTE THAT RANGES FOR LIPASE HAVE CHANGED OF 10/31/23 DUE TO AN ASSAY UPDATE BY THE ELECTRONICS ENGINEERING TECHNOLOGIST.THE NEW ASSAY RANGE IS 6-250 U/L, WITH A REFERENCE RANGE OF 16-77 U/L. Performed By: #### [id number] ## ## [address] [id number] LACTATE Collected: 5:40 AM Status: F Source: [facility] TYPE CODE TESTS RESULT OUT OF RANGE REFERENCE UNITS LAB LACTATE(LOINC) LACTATE 1.0 0.4 - 2.0 mmol/L Performed By: #### [id number] ## ## [address] [address] INFLUENZA VIRUS RAPID A/B Observed: 01/02 5:40 AM Status: F Source: [facility] INFLUENZA A NEGATIVE INFLUENZA B NEGATIVE INTERNAL NEG QC PASS INTERNAL POS QC PASS EXTERNAL QC DONE? YES A NEGATIVE TEST RESULT DOES NOT EXCLUDE INFECTION WITH INFLUENZA A OR B. THEREFORE, THE RESULTS OBTAINED FROM THIS FLU TEST SHOULD BE USED IN CONJUCTION WITH CLINICAL FINDINGS TO MAKE AN ACCURATE DIAGNOSIS. A POSITIVE RESULT DOES NOT RULE OUT CO-INFECTIONS WITH OTHER PATHOGENS OR IDENTIFY ANY SPECIFIC INFLUENZA A VIRUS SUBTYPE.CO-INFECTION WITH INFLUENZA A AND B IS RARE. IT IS RECOMMENDED THAT "DUAL POSITIVE" RESULTS BE CONFIRMED BY VIRAL CULTURE OR AN FDA-CLEARED INFLUENZA A AND B MOLECULAR ASSAY. INDIVIDUALS WHO HAVE RECEIVED NASALLY ADMINISTERED INFLUENZA A VACCINE MAY TEST POSITIVE IN COMMERCIALLY AVAILABLE INFLUENZA RAPID DIAGNOSTIC TESTS FOR UP TO THREE DAYS. RESULT CRITICAL? NO Performed By: #### [id number] ## ## [facility],[address] [place] [address] CMP WITH EGFR Collected: 5 5:40 AM Status: F Source: [facility] TYPE CODE TESTS RESULT OUT OF RANGE REFERENCE UNITS LAB CMP with eGFR(LOINC) CMP with eGFR Result Comment: COMPREHENSIV E METABOLIC PANEL LAB SODIUM(LOINC) SODIUM 139 136 - 145 mmol/l LAB POTASSIUM(LOIN C) POTASSIUM 3.2 Low 3.5 - 5.1 mmol/L LAB CHLORIDE(LOINC ) CHLORIDE 103 98 - 107 mmol/L LAB CO2(LOINC) CO2 23.4 21.0 - 32.0 mmol/L LAB GLUCOSE(LOINC) GLUCOSE 108 High 74 - 106 mg/dl LAB BUN(LOINC) BUN 13 7 - 18 mg/dl LAB CREATININE(ISAIAH NC) CREATININE 0.87 0.55 - 1.02 mg/dl LAB AST/SGOT(LOINC ) AST/SGOT 13 13 - 39 U/L LAB ALK PHOS(LOINC) ALK PHOS 77 46 - 116 U/L LAB CALCIUM(LOINC) CALCIUM 9.2 8.5 - 10.1 mg/dl LAB TOTAL PROTEIN(LOINC) TOTAL PROTEIN 7.5 6.4 - 8.2 g/dl LAB ALBUMIN(LOINC) ALBUMIN 4.1 3.4 - 5.0 g/dL LAB GLOBULIN(LOINC ) GLOBULIN 3.4 1.5 - 3.8 G/DL LAB A/G RATIO(LOINC) A/G RATIO 1.2 0.9 - 1.6 LAB TOTAL BILI(LOINC) TOTAL BILI 0.4 0.2 - 1.0 mg/dl LAB B/C RATIO(LOINC) B/C RATIO 15 0 - 30 ratio LAB ALT/SGPT(LOINC ) ALT/SGPT 13 Low 16 - 63 U/L LAB ANION GAP(LOINC) ANION GAP 16 10 - 20 mmol/L LAB AGE(LOINC) AGE 34 years LAB eGFR(LOINC) eGFR >60 60 - 999 ML/MINUT E LAB eGFR(AA)(LOINC ) eGFR(AA) >60 60 - 999 ML/MINUT E Result Comment: ACCORDING TO THE NATIONAL KIDNEY DISEASE EDUCATION PROGRAM(NKDE), A NORMAL eGFR IS A VALUE GREATER THAN OR EQUAL TO 60 ML/MIN/1.73 SQ METERS. CHRONIC KIDNEY DISEASE: <60mL/MIN/1.73 SQ METERS KIDNEY FAILURE: <15mL/MIN/1.73 SQ METERS THIS TEST SHOULD ONLY BE USED FOR PATIENTS 18 YEARS OF AGE AND OLDER. Performed By: #### [id number] ## ## [facility],[address] [place] [address] ED SUPER BILL Observed: 01/21/2025 4:38 AM Status: F Source: [place] [address] [id number] 01/21/2025 Patient: TOR BERMAN Sex: Female : 1990 Age: 34y Item Facility Professional Category Description Code Code Quantity Fee Total Drugs Normal Saline 698062 1 $0.00 $0.00 1000cc (499987) Nurse/E/M EMERGENCY 906819 1 $0.00 $0.00 DEPARTMENT VISIT HIGH/URGENT SEVERITY (87925-59) Nurse/IV/IM/Infusions Hydration 927796 1 $0.00 $0.00 additional hour (51530) Nurse/IV/IM/Infusions IVP additional 669308 2 $0.00 $0.00 push (38287) Nurse/IV/IM/Infusions IVP initial [id number] 1 $0.00 $0.00 (28977) Grand Total $0.00 Providers Beatrice Quezada D.O. 1 of 2 [facility] Principal Diagnosis Vomiting (Since yesterday, has had vomiting, and a migraine headache, has this from time to time, used Zofran at home, did not help, typically then has to come to the ER; her physician is Dr Sanjeev Mendez, with whom she communicates on a regular basis, she has a nephrostomy tube on the left, she states she is not on dialysis, that her right kidney works well; She denies fever, cp, cough, abd pain, diarrhea, On exam, she is pleasant, alert, pupils 3.0 mm juan, oriented, neck supple, no a/p/supraclav nodes, pharynx somewhat dry, lungs cta, no tachypnea, hrrr, no m, pmi left chest, good d/p pulses, no peripheral oedema, and no jvd; skin turgor good, warm and dry; As of this time, there is not indication for ct, patient states this is a recurrent pattern; we well make her comfortable, check her labs;). ICD-10 Codes R11.10: Vomiting, unspecified 2 of 2 ED VITALS FLOW SHEET Observed: 4:38 AM Status: F Source: [facility] Vitals Vital Sign Flow Sheet [address] [address] [id number] 01/21/2025 Patient: TOR BERMAN Sex: Female : 1990 Age: 34y Measurements Wt: 52.2 kg, Ht/Aden: 66.0 in, BMI: 18.56 Measured Time BP MAP HR RR O2Sat ETCO2 Temp Pain GCS RTS 06:39 01/21/2025 135/90 105 77 16 97% 6 04:58 01/21/2025 153/107 122 66 16 97% 98.7 F 8 1 of 1 ED VISIT SUMMARY Observed: 01/21/2025 4:38 AM Status: F Source: [facility] Visit Overview Visit Overview [address] [address] [id number] 01/21/2025 Patient: TOR BERMAN Sex: Female : 1990 Age: 34y 01/21/2025 06:57 AM EDT ED Arrival:04:51 01/21/2025 EDT Status:not Recent Travel:no Language:eng Adv Directive:No Isolation Status: Ethnicity:N Fall Risk:no risk Infectious Disease Exposure:no Measurements:5'6" / 167.6 Self-Harm Status:risk Sepsis Screen:negative cm 115.0 lb / 52.2 kg Chief Complaint:ABDOMINAL PAIN, CHILLS, NAUSEA, VOMITING, (headache since 5am yesterday), and (non-radiating) ALLERGIES Haldol Penicillins HOME MEDICATIONS lexapro: 20 mg once a day . LORazepam IntensoL 2 mg/mL oral concentrate: 1 mg three times a day as needed. oxyCODONE 10 mg tablet: every 6 hours as needed. zofran: 4 mg every 6 hours as needed. 1 of 3 Visit Overview PAST MEDICAL HISTORY / PROBLEMS Cancer. stage 3 cervicle Immunizations: up-to-date LNMP: Last normal menstrual period- March 2020 Renal Failure PAST SURGICAL HISTORY nephrostomy tube SOCIAL HISTORY Smoking status: Yes Alcohol use: No Drug use: Yes ED COURSE MEDICATIONS GIVEN IN EMERGENCY DEPARTMENT 05:22 01/21/25 IV NS 0.9 % 1000 mL 500 mL/hr 05:23 01/21/25 Zofran IVP 4 mg 05:23 01/21/25 HYDROmorphone (Dilaudid) IVP 0.5 mg 05:43 01/21/25 LORazepam (Ativan) IVP 0.5 mg IV SITE INFORMATION INTAKE OUTPUT REASSESMENT (most recent) 06:19 01/21/25. Reassessment after medication administered. Pain still present but improving. Reassessment after fluids administered (states feels better, minimal nausea). VITAL SIGNS First Vitals Last Vitals Temp 04:58 01/21/25 98.7 F Temp 06:39 01/21/25 BP 04:58 01/21/25 153/107 BP 06:39 01/21/25 135/90 2 of 3 Visit Overview First Vitals Last Vitals HR 04:58 01/21/25 66 HR 06:39 01/21/25 77 RR 04:58 01/21/25 16 RR 06:39 01/21/25 16 O2 Sat 04:58 01/21/25 97% O2 Sat 06:39 01/21/25 97% Pain 04:58 01/21/25 8 Pain 06:39 01/21/25 6 ETCO2 04:58 01/21/25 ETCO2 06:39 01/21/25 GCS 04:58 01/21/25 GCS 06:39 01/21/25 RTS 04:58 01/21/25 RTS 06:39 01/21/25 PROCEDURES NURSING INTERVENTIONS LABS / STUDIES LABS / STUDIES ORDERED CBC w Diff CMP Flu Swab (Influenzae AAg) HCG, Qual Serum Lactate, Serum Lipase Rapid COVID (SARS) ANTIGEN TEST CLINICAL IMPRESSION VOMITING (SINCE YESTERDAY, HAS HAD VOMITING, AND A MIGRAINE HEADACHE, HAS THIS FROM TIME TO TIME, USED ZOFRAN AT HOME, DID NOT HELP, TYPICALLY THEN HAS TO COME TO THE ER; HER PHYSICIAN IS DR SANJEEV MENDEZ, WITH WHOM SHE COMMUNICATES ON A REGULAR BASIS, SHE HAS A NEPHROSTOMY TUBE ON THE LEFT, SHE STATES SHE IS NOT ON DIALYSIS, THAT HER RIGHT KIDNEY WORKS WELL; SHE DENIES FEVER, CP, COUGH, ABD PAIN, DIARRHEA, ON EXAM, SHE IS PLEASANT, ALERT, PUPILS 3.0 MM JUAN, ORIENTED, NECK SUPPLE, NO A/P/SUPRACLAV NODES, PHARYNX SOMEWHAT DRY, LUNGS CTA, NO TACHYPNEA, HRRR, NO M, PMI LEFT CHEST, GOOD D/P PULSES, NO PERIPHERAL OEDEMA, AND NO JVD; SKIN TURGOR GOOD, WARM AND DRY; OF THIS TIME, THERE IS NOT INDICATION FOR CT, PATIENT STATES THIS IS A RECURRENT PATTERN; WE WELL MAKE HER COMFORTABLE, CHECK HER LABS;) 3 of 3 ED ORDER SHEET (CPOE ONLY) Observed: 4:38 AM Status: F Source: [facility] Order Sheet Order Sheet [address] [place] [address] [id number] 01/21/2025 Patient: TOR BERMAN Sex: Female : 1990 Age: 34y MEASUREMENTS: Wt: 52.2 kg, Ht/Aden: 66.0 in, BMI: 18.56 ALLERGIES: Haldol, Penicillins MEDICATION/IV/DRIP/FLUID ORDERS Order Description Priority Entered Acknowledged Completed Zofran IVP4 mg (NOW x1) 05:08 01/21/2025 05:23 Beatrice Quezada D.O. 01/21/2025 Luzma Farah R.N. IV NS 0.9 %1000 mL at 500 05:08 01/21/2025 05:22 mL/hr (NOW x1) Beatrice Quezada D.O. 01/21/2025 Luzma Farah R.N. HYDROmorphone (Dilaudid) 05:08 01/21/2025 05:23 IVP0.5 mg (NOW x1, HIGH Petra ColinOApril 01/21/2025 ALERT MEDICATION) Luzma Farah R.N. Reason for ordering with alerts: Benefits outweigh risks --05:08 01/21/2025 Beatrice Quezada D.O. LORazepam (Ativan) IVP0.5 mg 05:37 01/21/2025 05:40 05:45 (NOW x1) Beatrice Quezada D.O. 01/21/2025 01/21/2025 Louis Ahuja R.N. R.NApril Reason for ordering with alerts: Benefits outweigh risks --05:37 01/21/2025 Beatrice Quezada D.O. 1 of 3 Order Sheet LAB ORDERS Order Description Priority Entered Acknowledged Collected Completed CBC w Diff Stat Stat 05:08 01/21/2025 05:10 01/21/2025 05:24 01/21/2025 Louis Colin Seth Lapp, R.N. D.O. R.N. CMP Stat Stat 05:08 01/21/2025 05:10 01/21/2025 05:24 01/21/2025 Louis Colin Seth Lapp, R.N. D.O. R.N. Lipase Stat Stat 05:08 01/21/2025 05:10 01/21/2025 05:24 01/21/2025 Louis Colin Seth Lapp, R.N. D.O. R.N. Lactate, Serum Stat Stat 05:08 01/21/2025 05:10 01/21/2025 05:24 01/21/2025 Louis Colin Seth Lapp, R.N. D.O. R.N. Flu Swab (Influenzae Stat 05:08 01/21/2025 05:10 01/21/2025 05:24 01/21/2025 AAg) Stat Louis Colin Seth Lapp, R.N. D.O. R.N. Rapid COVID (SARS) Stat 05:08 01/21/2025 05:10 01/21/2025 05:25 01/21/2025 ANTIGEN TEST Stat Louis Colin Seth Lapp, R.N. D.O. R.N. HCG, Qual Serum Stat Stat 05:08 01/21/2025 05:10 01/21/2025 05:24 01/21/2025 Louis Colin Seth Lapp, R.N. D.OApril R.N. Acetaminophen Level Stat 05:36 01/21/2025 Cancelled: Other Stat Luzma Farah R.N. 05:37 EDT Luzma Farah R.N. 2 of 3 Order Sheet Verbal Order, Auth by: Beatrice Quezada D.O. Read back and verified DIAGNOSTIC STUDY ORDERS Order Description Priority Entered Acknowledged Completed STAFF ORDERS Order Description Priority Entered Acknowledged Collected Completed [Electronically signed by Beatrice Quezada D.O. (01/21/2025 06:33 EDT)] 3 of 3 ED PHYSICIAN DISCHARGE REPORT Observed: 01/21/2025 4:38 AM Status: F Source: [facility] Discharge Instructions Discharge Summary [address] [address] [id number] 01/21/2025 Patient: TOR BERMAN Sex: Female : 1990 Age: 34y Thank you for visiting [facility]. You have been evaluated today by Beatrice Quezada D.O. for the following condition(s): Principal Diagnosis Vomiting (Since yesterday, has had vomiting, and a migraine headache, has this from time to time, used Zofran at home, did not help, typically then has to come to the ER; her physician is Dr Pace @ [facility], with whom she communicates on a regular basis, she has a nephrostomy tube on the left, she states she is not on dialysis, that her right kidney works well; She denies fever, cp, cough, abd pain, diarrhea, On exam, she is pleasant, alert, pupils 3.0 mm juan, oriented, neck supple, no a/p/supraclav nodes, pharynx somewhat dry, lungs cta, no tachypnea, hrrr, no m, pmi left chest, good d/p pulses, no peripheral oedema, and no jvd; skin turgor good, warm and dry; As of this time, there is not indication for ct, patient states this is a recurrent pattern; we well make her comfortable, check her labs;). INSTRUCTIONS (Continue home medications You are welcomed to return anytime 1 of 5 Discharge Instructions Keep in contact with your physician Charlie QUEZADA< ER PHYSICIAN< Marcellus Foster). Follow-up: Follow up with doctor in three even if well. Sanjeev. Understanding of the discharge instructions verbalized by patient. You have been given the following additional information: Vomiting (Adult) Patient Signature Facility Drug Safety Physician Date/Time General Instructions with [facility]Writer [facility] [address] [place] [address] [place] [address] [phone] 01/21/2025 Patient: TOR BERMAN Sex: Female : 1990 Age: 34y Thank you for visiting [facility]. You have been evaluated today by Beatrice Quezada D.O. for the following condition(s): Principal Diagnosis Vomiting (Since yesterday, has had vomiting, and a migraine headache, has this from time to time, used Zofran at home, did not help, typically then has to come to the ER; her physician is Dr Pace @ [facility], with whom she communicates on a regular basis, she has a nephrostomy tube on the left, she states she is not on dialysis, that her right kidney works well; 2 of 5 Discharge Instructions She denies fever, cp, cough, abd pain, diarrhea, On exam, she is pleasant, alert, pupils 3.0 mm juan, oriented, neck supple, no a/p/supraclav nodes, pharynx somewhat dry, lungs cta, no tachypnea, hrrr, no m, pmi left chest, good d/p pulses, no peripheral oedema, and no jvd; skin turgor good, warm and dry; As of this time, there is not indication for ct, patient states this is a recurrent pattern; we well make her comfortable, check her labs;). INSTRUCTIONS (Continue home medications You are welcomed to return anytime Keep in contact with your physician Charlie QUEZADA< ER PHYSICIAN< Marcellus Foster). Follow-up: Follow up with doctor in three even if well. Sanjeev. Understanding of the discharge instructions verbalized by patient. ADDITIONAL INFORMATION Vomiting (Adult) Vomiting is a common symptom that may be due to different causes. These include gastroenteritis ("stomach flu"), food poisoning and gastritis. There are other [...] occurs, your body fluids must be replaced. 3 of 5 Discharge Instructions Home care If symptoms are severe, rest at home for the next 24 hours. Because your symptoms may be from an infection, wash your hands often and well. If soap and water are not available, use alcohol-based merchandise executive to keep from spreading the infection to others. Wash your hands for at least 20 seconds. Humming the happy birthday song twice while you wash is an easy way to make sure you've washed for 20 seconds. Wash your hands after using the toilet, before and after preparing food, before eating food, after changing a diaper, cleaning a wound, caring for a sick person, and blowing your nose, coughing, or sneezing. You should also wash your hands after caring for someone who is sick, touching pet food, or treats, and touching an animal, or animal waste. [...] you feel better and your symptoms lessen. 4 of 5 Discharge Instructions Follow-up care Follow up with your healthcare [...] fainting Unusually drowsy or confused Fever of 100.4F (38C) oral or higher, or as directed Yellow color of the eyes or skin 5 of 5 ED PHYSICIAN CLINICAL REPORT Observed: 01/21/2025 4:38 AM Status: F Source: [facility] Narrative Physician Clinical Narrative [address] [place] [address] [phone] 01/21/2025 Patient: TOR BERMAN Sex: Female : 1990 Age: 34y Primary Insurance: MEDICARE OUTPATIENT Policy Number: [id number] Subscriber: Other Disposition: Discharge to Home Disposition Decision Time: 06:29 01/21/2025 Measurements Wt: 52.2 kg, Ht/Aden: 66.0 in, BMI: 18.56 Initial Vital Sign Measured Time BP MAP HR RR O2Sat ETCO2 Temp Pain GCS RTS 04:58 01/21/2025 153/107 122 66 16 97% 98.7 F 8 PAST HISTORY Cancer: (stage 3 cervicle) Renal Failure Surgeries: cervicle biopsy nephrostomy tube Medications: lexapro: 20 mg once a day . LORazepam IntensoL 2 mg/mL oral concentrate: 1 mg three times a day as needed. oxyCODONE 10 mg tablet: every 6 hours as needed. zofran: 4 mg every 6 hours as needed. 1 of 13 Narrative Allergies: Haldol Penicillins ADDITIONAL NOTES The nursing notes have been reviewed. PHYSICAL EXAM Vital Signs: Have been reviewed. LABS, X-RAYS, AND EKG Laboratory Tests: CBC + DIFF Final BINA: 01/21/2025 05:40:00 EDT MsgRcvd: 01/21/2025 06:11 EDT Lab Test Result Reference Status Received Comments 01/21/2025 06:11 CBC-COMPLETE CBC + DIFF Final EDT BLOOD COUNT 13.6 x 10/UL 01/21/2025 06:11 WBC 4.5 - 10.8 Final Above high normal EDT 01/21/2025 06:11 RBC 4.43 x 10/UL 4.10 - 5.30 Final EDT 01/21/2025 06:11 HEMOGLOBIN 14.8 g/dl 12.0 - 16.0 Final EDT 01/21/2025 06:11 HEMATOCRIT 43.1 % 34.0 - 46.0 Final EDT 01/21/2025 06:11 MCV 97 fl 80 - 99 Final EDT 2 of 13 Narrative Lab Test Result Reference Status Received Comments 34 pg 01/21/2025 06:11 MCH 27 - 33 Final Above high normal EDT 01/21/2025 06:11 MCHC 34 X10 3 32 - 36 Final EDT 01/21/2025 06:11 RDW/CV 13.7 % 12.0 - 15.6 Final EDT 01/21/2025 06:11 PLATELET 385 x10/UL 150 - 450 Final EDT 01/21/2025 06:11 AUTOMATED MPV 7.3 fl 6.6 - 10.5 Final EDT DIFFERENTIAL 78.0 % 01/21/2025 06:11 NEUT % 46.0 - 76.0 Final Above high normal EDT 12.8 % 01/21/2025 06:11 LYMPH % 20.0 - 45.0 Final Below low normal EDT 01/21/2025 06:11 MONOS % 8.6 % 0.0 - 10.0 Final EDT 01/21/2025 06:11 EO % 0.5 % 0.0 - 7.0 Final EDT 01/21/2025 06:11 BASO % 0.3 % 0.0 - 2.0 Final EDT 01/21/2025 06:11 Lymph # 1.74 x10/UL 0.80 - 2.80 Final EDT 10.59 x10/UL 01/21/2025 06:11 Neut # 1.50 - 7.10 Final Above high normal EDT 1.16 x10/UL 01/21/2025 06:11 Green # 0.20 - 1.00 Final Above high normal EDT 3 of 13 Narrative Lab Test Result Reference Status Received Comments 01/21/2025 06:11 EO # 0.06 x10/UL 0.00 - 0.50 Final EDT 01/21/2025 06:11 Baso # 0.03 x10/UL 0.00 - 0.10 Final EDT 01/21/2025 06:11 MANUAL DIFF N/A New Order EDT 01/21/2025 06:11 MORPHOLOGY N/A New Order EDT CMP with eGFR Final BINA: 01/21/2025 05:40:00 EDT MsgRcvd: 01/21/2025 06:13 EDT Lab Test Result Reference Status Received Comments COMPREHENSIVE 01/21/2025 CMP with eGFR Final METABOLIC 06:13 EDT PANEL 01/21/2025 SODIUM 139 mmol/l 136 - 145 Final 06:13 EDT 3.2 mmol/L 01/21/2025 POTASSIUM 3.5 - 5.1 Final Below low normal 06:13 EDT 01/21/2025 CHLORIDE 103 mmol/L 98 - 107 Final 06:13 EDT 01/21/2025 CO2 23.4 mmol/L 21.0 - 32.0 Final 06:13 EDT 108 mg/dl 01/21/2025 GLUCOSE Above high 74 - 106 Final 06:13 EDT normal 4 of 13 Narrative Lab Test Result Reference Status Received Comments 01/21/2025 BUN 13 mg/dl 7 - 18 Final 06:13 EDT 01/21/2025 CREATININE 0.87 mg/dl 0.55 - 1.02 Final 06:13 EDT 01/21/2025 AST/SGOT 13 U/L 13 - 39 Final 06:13 EDT 01/21/2025 ALK PHOS 77 U/L 46 - 116 Final 06:13 EDT 01/21/2025 CALCIUM 9.2 mg/dl 8.5 - 10.1 Final 06:13 EDT TOTAL 01/21/2025 7.5 g/dl 6.4 - 8.2 Final PROTEIN 06:13 EDT 01/21/2025 ALBUMIN 4.1 g/dL 3.4 - 5.0 Final 06:13 EDT 01/21/2025 GLOBULIN 3.4 G/DL 1.5 - 3.8 Final 06:13 EDT 01/21/2025 A/G RATIO 1.2 0.9 - 1.6 Final 06:13 EDT 01/21/2025 TOTAL BILI 0.4 mg/dl 0.2 - 1.0 Final 06:13 EDT 01/21/2025 B/C RATIO 15 ratio 0 - 30 Final 06:13 EDT 13 U/L 01/21/2025 ALT/SGPT 16 - 63 Final Below low normal 06:13 EDT 01/21/2025 ANION GAP 16 mmol/L 10 - 20 Final 06:13 EDT 5 of 13 Narrative Lab Test Result Reference Status Received Comments 01/21/2025 AGE 34 years Final 06:13 EDT 01/21/2025 eGFR >60 ML/MINUTE 60 - 999 Final 06:13 EDT ACCORDING TO THE NATIONAL KIDNEY DISEASE EDUCATION PROGRAM(NKDE), A NORMAL eGFR IS A VALUE GREATER THAN OR EQUAL TO 60 ML/MIN/1.73 SQ METERS. 01/21/2025 CHRONIC KIDNEY eGFR(AA) >60 ML/MINUTE 60 - 999 Final 06:13 EDT DISEASE: <60mL/MIN/1.73 SQ METERS KIDNEY FAILURE: <15mL/MIN/1.73 SQ METERS THIS TEST SHOULD ONLY BE USED FOR PATIENTS 18 YEARS OF AGE AND OLDER. CORONAVIRUS (SARS) ANTIGEN TEST Final BINA: 01/21/2025 05:40:00 EDT MsgRcvd: 01/21/2025 06:25 EDT 6 of 13 Narrative Lab Test Result Reference Status Received Comments NORMAL: 01/21/2025 SARS ANTIGEN NEGATIVE Final NEGATIVE 06:25 EDT INTERNAL 01/21/2025 PASS Final CONTROL 06:25 EDT EXTERNAL QC 01/21/2025 YES Final DONE? 06:25 EDT 7 of 13 Narrative Lab Test Result Reference Status Received Comments SARS-CoV-2 THIS TEST IS BEING USED UNDER THE FDA EUA PROCEDURE. THIS ASSAY HAS BEEN VALIDATED AT [facility] FOR USE WITH NASAL AND NASOPHARYNGEAL SWAB SPECIMENS. INTERPRETIVE DATA TEST RESULTS SHOULD ALWAYS BE CONSIDERED IN THE CONTEXT OF CLINICAL OBSERVATIONS AND EPIDEMIOLOGICAL DATA IN MAKING FINAL DIAGNOSIS AND PATIENT MANAGEMENT DECISIONS. PATIENT MANAGEMENT SHOULD FOLLOW CURRENT CDC 8 of 13 GUIDELINES. THE KRISTEN SARS ANTIGEN MAYNOR DOES Narrative INFLUENZA VIRUS RAPID A/B Final BINA: 01/21/2025 05:40:00 EDT MsgRcvd: 01/21/2025 06:25 EDT Lab Test Result Reference Status Received Comments NEGATIVE 01/21/2025 INFLUENZA A Final [NEGATIVE 06:25 EDT NEGATIVE 01/21/2025 INFLUENZA B Final [NEGATIVE 06:25 EDT INTERNAL 01/21/2025 PASS Final NEG QC 06:25 EDT INTERNAL 01/21/2025 PASS Final POS QC 06:25 EDT 9 of 13 Narrative Lab Test Result Reference Status Received Comments A NEGATIVE TEST RESULT DOES NOT EXCLUDE INFECTION WITH INFLUENZA A OR B. THEREFORE, THE RESULTS OBTAINED FROM THIS FLU TEST SHOULD BE USED IN CONJUCTION WITH CLINICAL FINDINGS TO MAKE AN ACCURATE DIAGNOSIS. A POSITIVE RESULT DOES NOT RULE OUT CO-INFECTIONS WITH OTHER PATHOGENS OR IDENTIFY ANY SPECIFIC INFLUENZA A VIRUS EXTERNAL QC 01/21/2025 YES Final SUBTYPE.CO-INFECTION DONE? 06:25 EDT WITH INFLUENZA A AND B IS RARE. IT IS RECOMMENDED THAT "DUAL POSITIVE" RESULTS BE CONFIRMED BY VIRAL CULTURE OR AN FDA-CLEARED INFLUENZA A AND B MOLECULAR ASSAY. INDIVIDUALS WHO HAVE 10 of 13 RECEIVED NASALLY ADMINISTERED INFLUENZA Narrative Lab Test Result Reference Status Received Comments RESULT 01/21/2025 NO Final CRITICAL? 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 SERUM QUAL Final BINA: 01/21/2025 05:40:00 EDT MsgRcvd: 01/21/2025 06:19 EDT Lab Test Result Reference Status Received Comments 11 of 13 Narrative Lab Test Result Reference Status Received Comments 01/21/2025 06:19 NEGATIVE NEGATIVE Final SER EDT 01/21/2025 06:19 INTERNAL QC PASS Final EDT EXTERNAL QC 01/21/2025 06:19 YES Final DONE? EDT PROGRESS AND PROCEDURES Course of Care: No pain. (0630: Patient states she feels much better, looks better, just waiting on labs to be sure satisfactory; abd soft, no more coley, states she feels that she is ready to go.). Disposition: Disposition Decision Time: 06:29 01/21/2025. Patient discharged to Home. Discharge decision based on the following: patient's condition is stable; patient's condition is improved. Continue with your current medications Recheck with Dr Pace as needed Your labs are good, potassium slightly low, eat a banana or an orange every day you are welcomed to return anytime. Charlie QUEZADA< ER PHYSICIAN<Marcellus Foster. CLINICAL IMPRESSION Vomiting (Since yesterday, has had vomiting, and a migraine headache, has this from time to time, used Zofran at home, did not help, typically then has to come to the ER; her physician is Dr Pace @ [place], with whom she communicates on a regular basis, she has a nephrostomy tube on the left, she states she is not on dialysis, that her right kidney works well; She denies fever, cp, cough, abd pain, diarrhea, On exam, she is pleasant, alert, pupils 3.0 mm juan, oriented, neck supple, no a/p/supraclav nodes, pharynx somewhat dry, lungs cta, no tachypnea, hrrr, no m, pmi left chest, good d/p pulses, no peripheral oedema, and 12 of 13 Narrative no jvd; skin turgor good, warm and dry; As of this time, there is not indication for ct, patient states this is a recurrent pattern; we well make her comfortable, check her labs;). DISCHARGE INSTRUCTIONS (Continue home medications You are welcomed to return anytime Keep in contact with your physician Charlie QUEZADA< ER PHYSICIAN< Marcellus Foster). Follow-up: Follow up with doctor in three even if well. Sanjeev. Understanding of the discharge instructions verbalized by patient. (Electronically signed by Beatrice Quezada D.O. 01/21/25 06:33:30 EDT) Generated by [facility] 13 of 13 ED MED ADMINISTRATION DETAIL Observed: 0 01/21/2025 4:38 AM Status: F Source: [facility] Counter Top Maker Medication Administration Record [address] [place] [address] [id number] 01/21/2025 Patient: TOR BERMAN Sex: Female : 1990 Age: 34y MEASUREMENTS: Wt: 52.2 kg, Ht/Aden: 66.0 in, BMI: 18.56 ALLERGIES: Haldol, Penicillins Medication Ordered Medication Administration Date/Time Zofran IVP 4 mg 05:01/21 Zofran IVP 4 mg given via Site# 1. Allergies verified Given (NOW x1) and confirmed 5 rights. IV patency established. IV site checked: no 05:01/21/2025 pain, redness, or swelling. IV flushed thoroughly pre-medication Luzma Farah R.N. administration. Information reviewed with patient including reason Scanned for taking this medication. Verbalizes understanding. - 05: Luzma Farah R.N. IV NS 0.9 % 1000 05:22 21 IV NS 0.9 % 1000 mL started in bag#1 1000 mL at Started mL at 500 mL/hr 500 mL/hr via Site# 1. Allergies verified and confirmed 5 rights. IV 05:01/21/2025 (NOW x1) patency established. IV site checked: no pain, redness, or swelling. Luzma Farah R.N. IV flushed thoroughly pre-medication administration. Information Stopped reviewed with patient including reason for taking this medication. 06:01/21/2025 Verbalizes understanding. - 05:22 Yohana Melvin R.N. Scanned 06:01/21 Medication Discontinued: bag #1 infused upon discharge. Total amount infused: 1000 mL. IV patency established. IV site checked: no pain, redness, or swelling. IV flushed thoroughly post-medication administration. - 06:46 Louis Darden R.N. 1 of 2 Counter Top Maker Medication Ordered Medication Administration Date/Time HYDROmorphone 05:01/21 HYDROmorphone (Dilaudid) IVP 0.5 mg given via Given (Dilaudid) IVP 0.5 Site# 1. Allergies verified and confirmed 5 rights. IV patency 05:01/21/2025 mg (NOW x1, HIGH established. IV site checked: no pain, redness, or swelling. IV Luzma Farah R.N. ALERT flushed thoroughly pre-medication administration. Information Scanned MEDICATION) reviewed with patient including reason for taking this medication. Verbalizes understanding. Medication Wastage: 0.5 mg wasted. - 05: Luzma Farah R.N. LORazepam 05:01/21 LORazepam (Ativan) IVP 0.5 mg given via Site# 1. Given (Ativan) IVP 0.5 mg Allergies verified and confirmed 5 rights. IV patency established. IV 05:43 01/21/2025 (NOW x1) site checked: no pain, redness, or swelling. IV flushed thoroughly Louis Darden R.N. pre-medication administration. IVP given by nurse. Information Scanned reviewed with patient including reason for taking this medication. Verbalizes understanding. Medication Wastage: 1.5 mg wasted. - 05:45 Louis Darden R.N. 2 of 2 ED NURSES CLINICAL NOTE Observed: 2024 4:38 AM Status: F Source: [facility] Nurse Narrative Nurse Clinical Narrative [place] [id number] [place] [address] [phone] 01/21/2025 Patient: TOR BERMAN Sex: Female : 1990 Age: 34y Primary Insurance: MEDICARE OUTPATIENT Policy Number: [id number] Subscriber: Other Disposition: Discharge to Home Disposition Decision Time: 06:29 01/21/2025 Departure Time: 06:39 01/21/2025 TRIAGE Triage time: 04:52 01/21/2025. -- 04:52 01/21/25 EDT Louis Darden R.N. Arrived by private vehicle. Historian: (patient). Acuity: LEVEL 3. Chief Complaint: ABDOMINAL PAIN, NAUSEA and VOMITING and CHILLS (headache since 5am yesterday). 04:52 01/21/25. Alert. No acute distress. The patient has had nausea and vomiting. The patient has had severe, sharp, constant abdominal pain (non-radiating). The pain is described as generalized and located in the upper abdomen and lower abdomen and associated with nausea and vomiting. 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 SEPSIS SCREEN: NEGATIVE. SIRS criteria negative. No possible sources of infection. -- 04:59 01/21/25 EDT Louis Darden R.N. 04:58 01/21/25. BP: 153/107 MAP: 122. HR: 66. RR: 16. O2 saturation: 97% Temperature: 98.7 F (oral). Pain level now 8/10. -- 04:58 01/21/25 EDT Louis Darden R.N. Measurements: 1 of 4 Nurse Narrative 04:59 01/21/25 Wt: 52.2 kg, Ht/Aden: 66.0 in, BMI: 18.56 -- 04:59 01/21/25 EDT Louis Darden R.N. Medications: LORazepam IntensoL 2 mg/mL oral concentrate: 1 mg three times a day as needed. -- 05:01 01/21/25 EDT Louis Darden R.N. zofran: 4 mg every 6 hours as needed. -- 05:01 01/21/25 EDT Louis Darden R.N. oxyCODONE 10 mg tablet: every 6 hours as needed. -- 05:02 01/21/25 EDT Louis Darden R.N. lexapro: 20 mg once a day . -- 05:02 01/21/25 EDT Louis Darden R.N. 04:52 01/21/25. Preferred Pharmacy: ([facility] -- 04:59 01/21/25 EDT Louis Darden R.N. Allergies: Penicillins -- 04:54 01/21/25 EDT Louis Darden R.N. Haldol -- 04:55 01/21/25 EDT Louis Darden R.N. Problems: Renal Failure -- 04:55 01/21/25 EDT Louis Darden R.N. Cancer. stage 3 cervicle -- 04:56 01/21/25 LILIANAT Louis Darden R.N. ADDITIONAL SURGERIES: nephrostomy tube -- 04:56 01/21/25 LILIANAT Louis Darden R.N. cervicle biopsy -- 04:57 01/21/25 LILIANAT Louis Darden R.N. History 04:52 01/21/25. PAST MEDICAL HX: Immunizations: up-to-date. LNMP: Last normal menstrual period- March 2020. Denies current . SOCIAL HX: Smoker- current status unknown (vapes). Drug use: marijuana. No alcohol use. The patient has not traveled outside the [place] Infectious disease exposure: No infectious disease exposure. 2 of 4 Nurse Narrative ABUSE ASSESSMENT: The patient answered "yes" to the question(s) "Do you feel safe in your home?" and "no" to the question(s) "Are you afraid to go home?". SELF HARM ASSESSMENT: Self harm assessment was performed. The patient answered no to the question(s) "Have you recently felt down, depressed, or hopeless?" and "Do you have thoughts of harming or killing yourself?". FALL RISK ASSESSMENT: Fall risk assessment completed. No risk factors identified. -- 04:59 01/21/25 GINNY Darden R.N. Interventions 04:52 01/21/25. Identification band on patient. Advanced care plan. Patient does not have advanced directive. -- 04:59 01/21/25 EDT Louis Darden R.N. PHYSICAL ASSESSMENT 06:00 01/21/25. Ambulatory to room. ( nausea, vomiting, abd pain, headache from vomiting. for past 24 hrs.). GENERAL / NEURO / PSYCH: Alert. Oriented X 4. Appears in no acute distress. RESPIRATORY: Respirations not labored. CVS: Normal sinus rhythm noted. -- 06:25 01/21/25 EDT Luzma Farah R.N. NURSING PROGRESS NOTES 05:17 01/21/25. Site #1 started via IV in the right antecubital space with a 22g angiocath with aseptic technique and good blood return; 1 attempt. Blood drawn: Altimet set tube(s). Labeled in the presence of the patient and sent to the lab. Saline lock flushed with 5 mL saline. -- 05:01/21/25 EDT Luzma Farah R.N. 05:01/21/25. IV NS 0.9 % 1000 mL started in bag#1 1000 mL at 500 mL/hr via Site# 1. Allergies verified and confirmed 5 rights. IV patency established. IV site checked: no pain, redness, or swelling. IV flushed thoroughly pre-medication administration. Information reviewed with patient including reason for taking this medication. Verbalizes understanding. -- 05:01/21/25 EDT Luzma Farah R.N. 05:01/21/25. Zofran IVP 4 mg given via Site# 1. Allergies verified and confirmed 5 rights. IV patency established. IV site checked: no pain, redness, or swelling. IV flushed thoroughly pre-medication administration. Information reviewed with patient including reason for taking this medication. Verbalizes understanding. -- 05:01/21/25 LILIANAT Luzma Farah R.N. 05:01/21/25. HYDROmorphone (Dilaudid) IVP 0.5 mg given via Site# 1. Allergies verified and confirmed 5 rights. IV patency established. IV site checked: no pain, redness, or swelling. IV flushed thoroughly pre-medication administration. Information reviewed with patient including reason for taking this medication. Verbalizes understanding. Medication Wastage: 0.5 mg wasted. -- 05:23 01/21/25 EDT Luzma Farah R.N. 3 of 4 Nurse Narrative 05:43 01/21/25. LORazepam (Ativan) IVP 0.5 mg given via Site# 1. Allergies verified and confirmed 5 rights. IV patency established. IV site checked: no pain, redness, or swelling. IV flushed thoroughly pre-medication administration. IVP given by nurse. Information reviewed with patient including reason for taking this medication. Verbalizes understanding. Medication Wastage: 1.5 mg wasted. -- 05:45 01/21/25 EDT Louis Darden R.N. 06:00 01/21/25. Two patient identifiers checked. Call light placed in reach. Side rails up x 2. Bed placed in lowest position. Brakes of bed on. -- 06:25 01/21/25 EDT Luzma Farah R.N. 06:17 01/21/25. Reassessment after medication administered. Pain still present but improving. Nausea gone now. The patient reports no complaints and the patient is calm and resting quietly. Patient waiting for disposition. -- 06:48 01/21/25 EDT Louis Darden R.N. 06:19 01/21/25. Reassessment after medication administered. Pain still present but improving. Reassessment after fluids administered (states feels better, minimal nausea). -- 06:44 01/21/25 EDT Luzma Farah R.N. 06:39 01/21/25. BP: 135/90 MAP: 105. HR: 77. RR: 16. O2 saturation: 97% Pain level now 04/12. -- 06:49 01/21/25 EDT Louis Darden R.N. DISPOSITION / DISCHARGE 06:31 01/21/25. IV NS 0.9 %: Medication Discontinued. bag #1 infused upon discharge. Total amount infused: 1000 mL. IV patency established. IV site checked: no pain, redness, or swelling. IV flushed thoroughly post-medication administration. -- 06:46 01/21/25 EDT Louis Darden R.N. 06:39 01/21/25. Condition at departure: improved. Patient verbalized understanding. Written instructions provided in Palestinian. The patient was discharged home and accompanied by spouse. The patient left ambulatory and via private vehicle. Spouse driving. -- 06:46 01/21/25 EDT Louis Darden R.N. Departure time: 06:39 01/21/2025. -- 06:47 01/21/25 EDT Louis Darden R.N. 06:39 01/21/25. Site #1 removed upon discharge. Catheter intact. Bandage applied. -- 06:46 01/21/25 EDT Louis Darden R.N. (Electronically signed by Louis Darden R.N. 01/21/25 06:57:52 EDT) Generated by [employer] 4 of 4 IR NEPHROSTOMY EXCHANGE Observed: 2024 10:00 AM Status: F Source: [facility] MAIN ORIGINAL PROCEDURE: IR NEPHROSTOMY TUBE CHANGE 12/22/2024 [...] Guidewires advanced over which previously placed 12 Bulgarian nephrostomy tube was exchanged for a new 12 Bulgarian nephrostomy tube. Tip curled within left renal [...] the procedure including risks, benefits, and alternatives. [place] protocol was observed. Sterile gowns, masks, hats and gloves utilized for maximal sterile barrier. FINDINGS: Antegrade nephrostogram demonstrates satisfactory position of previously placed left nephrostomy tube. Postprocedure images demonstrate new nephrostomy catheter with tip curled within decompressed left renal pelvis. No complication suggested. IMPRESSION: Maintenance exchange of previously placed left nephrostomy tube for new 12 Bulgarian nephrostomy catheter via previously established tract with tip curled in decompressed left renal pelvis. No complication suggested. Interpreted by: Clotilde Hernández DO Preliminary Report By: Clotilde Hernández DO Electronically signed By Clotilde Hernández DO Dictated Date: 12/22/2024 3:54:55 PM Prelim Date: 12/22/2024 3:57:35 PM Sign Date: 12/22/2024 3:57:35 PM Ordering Provider: NASRIN ISABEL IR PORT REMOVAL Observed: 12/22/2024 10:00 AM Status: F Source: [facility] MAIN ORIGINAL PROCEDURE: IR REMOVAL OF TUNNELED CATHETER [...] the procedure including risks, benefits, and alternatives. [place] protocol was observed. Sterile gowns, masks, hats and gloves utilized for maximal sterile barrier. As above in technique section FINDINGS: Preprocedure image demonstrates previously placed implant is intravenous access port. Postprocedure image demonstrates no evidence of complication from port removal or residual port fragment. IMPRESSION: Removal of previously placed implanted central venous access port intact and in total as described. Interpreted by: Clotilde Hernández DO Preliminary Report By: Clotilde Hernández DO Electronically signed By Clotilde Hernández DO Dictated Date: 12/22/2024 3:57:44 PM Prelim Date: 12/22/2024 3:59:55 PM Sign Date: 12/22/2024 3:59:55 PM Ordering Provider: NASRIN ISABEL CT ABDOMEN/PELVIS W Observed: 12/10/2024 5:24 AM Status: F Source: [place] [id number] Patient: TOR BERMAN Phone#: : 1990 Age: 33 Gender: F Pt. Type: ER Account: [id number] Location: 052 Ordering: GONZALEZ PINEDA Exam Date: 12/10/2024/5:07 Family Phys: Charge Code: [id number] Physician: Ingham Order #: [id number] Dose#: [id number] PROCEDURE: CT ABDOMEN/PELVIS WITH CONTRAST COMPARISON: [facility], CT, ABDOMEN/PELVIS W CON, 11/06/2024, 2:43. INDICATIONS: Flank pain. TECHNIQUE: After obtaining the patient's consent, CT images were created with non-ionic intravenous contrast material. All CT scans at this facility use dose modulation, iterative reconstruction, and/or weight based dosing when appropriate to reduce radiation dose to as low as reasonably achievable. IV CONTRAST: Omnipaque 350,80ml TOTAL DOSE: 9.0 CTDIvol(mGy) FINDINGS: LIVER: Normal. No enlargement, atrophy, abnormal density, or significant focal lesion. BILIARY: Normal. No visible dilatation or calcification. PANCREAS: Normal. No lesion, fluid collection, ductal dilatation, or atrophy. SPLEEN: Normal. No enlargement or focal lesion. KIDNEYS: Left nephrostomy tube is present coiled at the renal pelvis. Peripelvic cyst is present. Calculi are present near the left ureterovesical junction. Is difficult to determine if these lie within are in close approximation to the ureter. There is no evidence of hydronephrosis ADRENALS: Normal. No mass or enlargement. AORTA/VASCULAR: Normal. No aneurysm or dissection. RETROPERITONEUM: Normal. No mass or adenopathy. BOWEL/MESENTERY: There is underfilling versus mucosal thickening of the rectosigmoid colon. ABDOMINAL WALL: Normal. No mass or hernia. URINARY BLADDER: Normal. No visible focal wall thickening, lesion, or calculus. PELVIC NODES: Normal. No adenopathy. PELVIC ORGANS: The uterus is absent. BONES: Normal. No bony lesion or fracture. LUNG BASES: Normal. No visible pulmonary or pleural disease. Continued Report - Page 2 of 2 Patient: TOR BERMAN Phone#: : 1990 Age: 33 Gender: F Pt. Type: ER Account: [id number] Location: [facility] Ordering: GONZALEZ PINEDA Exam Date: 12/10/2024/5:07 Family Phys: Charge Code: [id number] Physician: Ingham Order #: [id number] Dose#: 9.0 OTHER: Negative. CONCLUSION: 1. Left nephrostomy tube is present. Calculi at the distal left ureter versus adjacent to the ureter are noted. 2. There is mucosal thickening versus under filling of the rectosigmoid colon. Dictated by: Cynthia Douglas MD on 12/10/2024 at 13:42 Approved by: Cynthia Douglas MD on 12/10/2024 at 13:46 URINALYSIS Collected: 12/10/2024 4:12 AM Status: F Source: [facility] TYPE CODE TESTS RESULT OUT OF RANGE REFERENCE UNITS LAB URINALYSIS(LOIN C) URINALYSIS Result Comment: URINALYSIS LAB Specimen Type(LOINC) Specimen Type R LAB Color(LOINC) Color yellow NORMAL: YELLOW LAB Clarity(LOINC) Clarity clear NORMAL: CLEAR LAB ph(LOINC) ph 7 NORMAL: 5.0-8.0 LAB Protein(LOINC) Protein NEG RAJIV L: NEGATIVE LAB Glucose(LOINC) Glucose NORM RAJIV L: NORMAL LAB Ketone(LOINC) Ketone NEG NORMAL : NEGATIVE LAB Bilirubin(LOINC ) Bilirubin NEG NORMAL: NEGATIVE LAB Blood(LOINC) Blood NEG NORMAL: NEGATIVE LAB Urobilinog(LOIN C) Urobilinog NORM NORMAL: NORMAL LAB Sp Stem(LOINC) Sp Stem 1.015 NORMAL: 1.010-1.030 LAB Nitrite(LOINC) Nitrite NEG RAJIV L: NEGATIVE LAB Leukocytes(LOIN C) Leukocytes NEG NORMAL: NEGATIVE LAB Microscopic(ISAIAH NC) Microscopic NOT INDICATED Performed By: #### [id number] ## ## [facility],[address] [place] [address] CPK Collected: 02/07/202 5 3:15 AM Status: F Source: [facility] TYPE CODE TESTS RESULT OUT OF RANGE REFERENCE UNITS LAB CPK(INC) CPK 86 26 - 192 U/L Performed By: #### [id number] ## ## [facility],[address] [place] [address] CBC + DIFF Collected: 5 3:15 AM Status: F Source: [facility] TYPE CODE TESTS RESULT OUT OF RANGE REFERENCE UNITS LAB CBC + DIFF(LOINC) CBC + DIFF Result Comment: CBC-COMPLETE BLOOD COUNT LAB WBC(INC) WBC 11.7 High 4.5 - 10.8 x 10EE3/UL LAB RBC(INC) RBC 4.35 4.10 - 5.30 x 10EE6/UL LAB HEMOGLOBIN(ISAIAH NC) HEMOGLOBIN 14.4 12.0 - 16.0 g/dl LAB HEMATOCRIT(ISAIAH NC) HEMATOCRIT 42.6 34.0 - 46.0 % LAB MCV(INC) MCV 98 80 - 99 fl LAB MCH(INC) MCH 33 27 - 33 pg LAB MCHC(INC) MCHC 34 32 - 36 X10 3 LAB RDW/CV(INC) RDW/CV 14.4 12.0 - 15.6 % LAB PLATELET(LOINC ) PLATELET 444 150 - 450 x10EE3/UL LAB MPV(INC) MPV 7.1 6.6 - 10.5 fl Result Comment: AUTOMATED DI FFERENTIAL LAB NEUT %(INC) NEUT % 74.6 46.0 - 76.0 % LAB LYMPH %(LOINC) LYMPH % 15.3 Low 20.0 - 45.0 % LAB MONOS %(LOINC) MONOS % 8.2 0.0 - 10.0 % LAB EO %(INC) EO % 1.6 0.0 - 7.0 % LAB BASO %(LOINC) BASO % 0.3 0.0 - 2.0 % LAB Lymph #(LOINC) Lymph # 1.79 0.80 - 2.80 x10EE 3/UL LAB Neut #(INC) Neut # 8.76 High 1.50 - 7.10 x10EE3 /UL LAB Green #(INC) Green # 0.96 0.20 - 1.00 x10EE3 /UL LAB EO #(LOINC) EO # 0.18 0.00 - 0.50 x10EE3/U L LAB Baso #(LOINC) Baso # 0.04 0.00 - 0.10 x10EE3 /UL LAB MANUAL DIFF(LOINC) MANUAL DIFF N/A LAB MORPHOLOGY(ISAIAH NC) MORPHOLOGY N/A Performed By: #### [id number] ## ## [place] [id number] SERUM QUAL Collected: 12/10/2024 3:15 AM S tatus: F Source: [facility] TYPE CODE TESTS RESULT OUT OF RANGE REFERENCE UNITS LAB SER(INC) SER NEGATIVE NEGATIVE LAB INTERNAL QC(INC) INTERNAL QC PASS LAB EXTERNAL QC DONE?(INC) EXTERNAL QC DONE? YES Performed By: #### [id number] ## ## [place] [id number] CMP WITH EGFR Collected: 3:15 AM Status: F Source: [facility] TYPE CODE TESTS RESULT OUT OF RANGE REFERENCE UNITS LAB CMP with eGFR(INC) CMP with eGFR Result Comment: COMPREHENSIV E METABOLIC PANEL LAB SODIUM(LOINC) SODIUM 140 136 - 145 mmol/l LAB POTASSIUM(LOIN C) POTASSIUM 3.7 3.5 - 5.1 mmol/L LAB CHLORIDE(LOINC ) CHLORIDE 102 98 - 107 mmol/L LAB CO2(INC) CO2 28.0 21.0 - 32.0 mmol/L LAB GLUCOSE(LOINC) GLUCOSE 91 74 - 106 mg/dl LAB BUN(LOINC) BUN 12 7 - 18 mg/dl LAB CREATININE(ISAIAH NC) CREATININE 1.09 High 0.55 - 1.02 mg/dl LAB AST/SGOT(LOINC ) AST/SGOT 14 13 - 39 U/L LAB ALK PHOS(LOINC) ALK PHOS 82 46 - 116 U/L LAB CALCIUM(LOINC) CALCIUM 9.1 8.5 - 10.1 mg/dl LAB TOTAL PROTEIN(LOINC) TOTAL PROTEIN 7.4 6.4 - 8.2 g/dl LAB ALBUMIN(LOINC) ALBUMIN 4.2 3.4 - 5.0 g/dL LAB GLOBULIN(LOINC ) GLOBULIN 3.2 1.5 - 3.8 G/DL LAB A/G RATIO(INC) A/G RATIO 1.3 0.9 - 1.6 LAB TOTAL BILI([facility]) TOTAL BILI 0.4 0.2 - 1.0 mg/dl LAB B/C RATIO(INC) B/C RATIO 11 0 - 30 ratio LAB ALT/SGPT([facility] ) ALT/SGPT 12 Low 16 - 63 U/L LAB ANION GAP([facility]) ANION GAP 14 10 - 20 mmol/L LAB AGE(LOINC) AGE 33 years LAB eGFR([facility]) eGFR 57 Low 60 - 999 ML/MINUT E LAB eGFR(AA)([facility] ) eGFR(AA) >60 60 - 999 ML/MINUT E Result Comment: ACCORDING TO THE NATIONAL KIDNEY DISEASE EDUCATION PROGRAM(NKDE), A NORMAL eGFR IS A VALUE GREATER THAN OR EQUAL TO 60 ML/MIN/1.73 SQ METERS. CHRONIC KIDNEY DISEASE: <60mL/MIN/1.73 SQ METERS KIDNEY FAILURE: <15mL/MIN/1.73 SQ METERS THIS TEST SHOULD ONLY BE USED FOR PATIENTS 18 YEARS OF AGE AND OLDER. Performed By: #### [id number] ## ## [facility],[address] [place] [address] ED VITALS FLOW SHEET Observed: 1:14 AM Status: F Source: [facility] Vitals [place]ital [place] [address] [phone] 12/10/2024 Patient: TOR BERMAN Sex: Female : 1990 Age: 33y Measurements Wt: 49.9 kg, Ht/Aden: 66.0 in, BMI: 17.75 Measured Time BP MAP HR RR O2Sat ETCO2 Temp Pain GCS RTS 05:53 12/10/2024 113/78 90 69 20 96% 7 01:51 12/10/2024 142/107 119 91 16 99% 98.7 F 8 1 of 1 ED VISIT SUMMARY Observed: 12/10/2024 1:14 AM Status: F Source: [facility] Visit Overview Visit Overview [facility] [address] [place] [address] [phone] 12/10/2024 Patient: TOR BERMAN Sex: Female : 1990 Age: 33y 12/11/2024 07:34 PM EST ED Arrival:01:14 12/10/2024 EST Status:not Recent Travel:no Language:eng Adv Directive: Isolation Status: Ethnicity:N Fall Risk:no risk Infectious Disease Exposure:no Measurements:5'6" / 167.6 Self-Harm Status:risk Sepsis Screen:negative cm 110.0 lb / 49.9 kg Chief Complaint:ABDOMINAL PAIN and NAUSEA ALLERGIES Haldol Penicillins HOME MEDICATIONS escitalopram 20 mg tablet: 1 tablet once a day. lorazepam 1 mg tablet: 1 tablet three times a day as needed. ondansetron HCl 4 mg tablet: 1 tablet four times a day as needed. oxycodone 5 mg tablet: 2 tablet every six hours as needed. 1 of 3 Visit Overview PAST MEDICAL HISTORY / PROBLEMS Cervical Cancer Chronic kidney disease (disorder) See nurses notes PAST SURGICAL HISTORY Percutaneous insertion of nephrostomy tube. every 6 weeks SOCIAL HISTORY Smoking status: No Alcohol use: No Drug use: Yes ED COURSE MEDICATIONS GIVEN IN EMERGENCY DEPARTMENT 04:16 12/10/24 IV NS 0.9 % 1000 mL 999 mL/hr over 1 hour(s) 04:18 12/10/24 Zofran IVP 4 mg over 1 minute(s) 04:21 12/10/24 HYDROmorphone (Dilaudid) IVP 1 mg over 1 minute(s) 04:23 12/10/24 KetorOLAC (Toradol) IVP 15 mg over 1 minute(s) 05:56 12/10/24 Zofran IVP 4 mg over 1 minute(s) 05:57 12/10/24 HYDROmorphone (Dilaudid) IVP 1 mg over 1 minute(s) IV SITE INFORMATION INTAKE OUTPUT REASSESMENT (most recent) 03:27 12/10/24. GENERAL / NEURO / PSYCH: Alert. Oriented X 4. Appears in no acute distress. HEENT: Mucous membranes are pink. RESPIRATORY: Respirations not labored. Breath sounds within normal limits. CVS: Capillary refill less than 2 seconds. GI / : The patient has had nausea. Emesis noted. Bowel sounds within normal limits. SKIN: Skin is warm. VITAL SIGNS 2 of 3 Visit Overview First Vitals Last Vitals Temp 01:51 12/10/24 98.7 F Temp 05:53 12/10/24 BP 01:51 12/10/24 142/107 BP 05:53 12/10/24 113/78 HR 01:51 12/10/24 91 HR 05:53 12/10/24 69 RR 01:51 12/10/24 16 RR 05:53 12/10/24 20 O2 Sat 01:12/10/24 99% O2 Sat 05:53 12/10/24 96% Pain 01:51 12/10/24 8 Pain 05:53 12/10/24 7 ETCO2 01:12/10/24 ETCO2 05:53 12/10/24 GCS 01:51 12/10/24 GCS 05:53 12/10/24 RTS 01:51 12/10/24 RTS 05:53 12/10/24 PROCEDURES NURSING INTERVENTIONS LABS / STUDIES LABS / STUDIES ORDERED CBC w Diff CMP CPK (CK) CT ABD/PEL w Cont HCG, Qual Serum Urinalysis CLINICAL IMPRESSION CHRONIC LEFT FLANK PAIN MILD NAUSEA. NO VOMITING 3 of 3 ED SUPER BILL Observed: 12/10/2024 1:14 AM Status: F Source: [address] [place] [address] [phone] 12/10/2024 Patient: TOR BERMAN Sex: Female : 1990 Age: 33y Facility Professional Category Item Description Code Code Quantity Fee Total Nurse/E/M EMERGENCY 275325 1 $0.00 $0.00 DEPT VISIT HIGH SEVERITYFUNCJ (10467-69) Nurse/IV/IM/Infusions Hydration 462560 1 $0.00 $0.00 additional hour (56185) Nurse/IV/IM/Infusions IVP additional 405036 2 $0.00 $0.00 push (97523) Nurse/IV/IM/Infusions IVP initial (44396) 736918 1 $0.00 $0.00 Nurse/IV/IM/Infusions IVP same med 892833 2 $0.00 $0.00 (31 min apart) (16241) Grand $0.00 Total Providers Gonzalez Pineda D.O. 1 of 2 [facility] Chief Complaint FLANK PAIN. Principal Diagnosis Mild nausea. No vomiting. Chronic left flank pain ICD-10 Codes R10.9: Unspecified abdominal pain G89.29: Other chronic pain R11.0: Nausea 2 of 2 ED NURSES CLINICAL NOTE Observed: 2024 1:14 AM Status: F Source: [facility] Nurse Narrative Nurse Clinical Narrative [facility] [address] [place] [address] [phone] 12/10/2024 Patient: TOR BERMAN Sex: Female : 1990 Age: 33y Primary Insurance: MEDICARE OUTPATIENT Policy Number: [id number] Subscriber: Other Disposition: Discharge to Home Disposition Decision Time: 07:23 12/10/2024 Departure Time: 08:25 12/10/2024 TRIAGE Triage time: 01:42 12/10/2024. Chief Complaint: ABDOMINAL PAIN and NAUSEA. -- 01:52 12/10/24 SUMEET Vargas R.N. 01:51 12/10/24. BP: 142/107 MAP: 119. HR: 91. RR: 16. O2 saturation: 99% Temperature: 98.7 F. Pain level now 8/10. -- 01:51 12/10/24 SUMEET Vargas R.N. ( Pt c/o flank pain. She has been nauseous with vomiting since 8pm. She is normally able to take zofran but is out.). Acuity: LEVEL 3. 01:52 12/10/24. This started yesterday. SEPSIS SCREEN: NEGATIVE. SIRS criteria negative. -- 01:52 12/10/24 SUMEET Vargas R.N. Measurements: 01:52 12/10/24 Wt: 49.9 kg, Ht/Aden: 66.0 in, BMI: 17.75 -- 01:52 12/10/24 SUMEET Vargas R.N. Medications: oxycodone 5 mg tablet: 2 tablet every six hours as needed. -- 01:54 12/10/24 SUMEET Vargas R.N. 1 of 4 Nurse Narrative ondansetron HCl 4 mg tablet: 1 tablet four times a day as needed. -- 01:54 12/10/24 SUMEET Vargas R.N. lorazepam 1 mg tablet: 1 tablet three times a day as needed. -- 01:54 12/10/24 SUMEET Vargas R.N. escitalopram 20 mg tablet: 1 tablet once a day. -- 01:54 12/10/24 SUMEET Vargas R.N. Allergies: Haldol -- 01:47 12/10/24 SUMEET Vargas R.N. Penicillins -- 01:47 12/10/24 SUMEET Vargas R.N. Problems: Cervical Cancer -- 01:47 12/10/24 SUMEET Vargas R.N. nephrostomy -- 01:47 12/10/24 SUMEET Vargas R.N. Chronic kidney disease (disorder) -- 01:47 12/10/24 SUMEET Vargas R.N. ADDITIONAL SURGERIES: Percutaneous insertion of nephrostomy tube. every 6 weeks -- 01:48 12/10/24 SUMEET Vargas R.N. History 01:12/10/24. SOCIAL HX: Never smoker. Regular vaping. Drug use: marijuana. No alcohol use. The patient has not traveled outside the [place] Infectious disease exposure: No infectious disease exposure. ABUSE ASSESSMENT: The patient answered "yes" to the question(s) "Do you feel safe in your home?" and "no" to the question(s) "Are you afraid to go home?". SELF HARM ASSESSMENT: Self harm assessment was performed. The patient answered no to the question(s) "Have you recently felt down, depressed, or hopeless?" and "Do you have thoughts of harming or killing yourself?". FALL RISK ASSESSMENT: Fall risk assessment completed. No risk factors identified. -- 01:52 12/10/24 SUMEET Vargas R.N. PHYSICAL ASSESSMENT 2 of 4 Nurse Narrative 03:27 12/10/24. GENERAL / NEURO / PSYCH: Alert. Oriented X 4. Appears in no acute distress. HEENT: Mucous membranes are pink. RESPIRATORY: Respirations not labored. Breath sounds within normal limits. CVS: Capillary refill less than 2 seconds. GI / : The patient has had nausea. Emesis noted. Bowel sounds within normal limits. SKIN: Skin is warm. -- 03:27 12/10/24 SUMEET Chavez R.N. NURSING PROGRESS NOTES 03:15 12/10/24. Site #1 started via IV in the right antecubital space with a 20g angiocath; 1 attempt. Blood drawn: rainbow set tube(s). Saline lock flushed with 5 mL saline. (Diffusics.) -- 03:28 12/10/24 SUMEET Vargas R.N. 04:13 12/10/24. Rounding: Pain: assessed pain level. Proximity of possessions / care items: moved items closer. Set expectations: advised patient of rounding protocol timing and asked if they needed anything else at this time. Two patient identifiers checked. Call light placed in reach. Side rails up x 1. Bed placed in lowest position. Brakes of bed on. -- 04:13 12/10/24 SUMEET Chavez R.N. 04:16 12/10/24. IV NS 0.9 % 1000 mL started in bag#1 1000 mL at 999 mL/hr over 1 hour(s) via Site# 1. Allergies verified and confirmed 5 rights. IV patency established. IV site checked: no pain, redness, or swelling. IV flushed thoroughly pre-medication administration. Information reviewed with patient including reason for taking this medication. Verbalizes understanding. Completed per protocol. -- 04:19 12/10/24 SUMEET Chavez R.N. 04:18 12/10/24. Zofran IVP 4 mg given over 1 minute(s) via Site# 1. Allergies verified and confirmed 5 rights. IV patency established. IV site checked: no pain, redness, or swelling. IV flushed thoroughly pre-medication administration. Information reviewed with patient including reason for taking this medication. Verbalizes understanding. -- 04:19 12/10/24 SUMEET Chavez R.N. 04:12/10/24. HYDROmorphone (Dilaudid) IVP 1 mg given over 1 minute(s) via Site# 1. Allergies verified and confirmed 5 rights. IV patency established. IV site checked: no pain, redness, or swelling. IV flushed thoroughly pre-medication administration. Information reviewed with patient including reason for taking this medication. Verbalizes understanding. -- 04:22 12/10/24 SUMEET Chavez R.N. 04:23 12/10/24. KetorOLAC (Toradol) IVP 15 mg given over 1 minute(s) via Site# 1. Allergies verified and confirmed 5 rights. IV patency established. IV site checked: no pain, redness, or swelling. IV flushed thoroughly pre-medication administration. Information reviewed with patient. Verbalizes understanding. -- 04:24 12/10/24 SUMEET Chavez R.N. 04:56 12/10/24. IV NS 0.9 %: Medication Discontinued. bag #1 infused. Total amount infused: 1000 mL. IV patency established. IV site checked: no pain, redness, or swelling. IV flushed thoroughly post-medication administration. -- 04:56 12/10/24 SUMEET Chavez R.N. 04:56 12/10/24. HYDROmorphone (Dilaudid) IVP: Medication Response. Pain is improving. The patient feels better. (03/12). -- 04:57 12/10/24 SUMEET Chavez R.N. 3 of 4 Nurse Narrative 05:12/10/24. Patient transported to NH by stretcher with body technician. -- 05:13 12/10/24 SUMEET Chavez R.N. 05:53 12/10/24. BP: 113/78 while lying. MAP: 90. HR: 69. Regular. RR: 20. Unlabored. O2 saturation: 96% Pain level now 7/10. Describes the pain as aching. Constant. (left flank). -- 06:04 12/10/24 SUMEET Chavez R.N. 05:56 12/10/24. Zofran IVP 4 mg given over 1 minute(s) via Site# 1. Allergies verified and confirmed 5 rights. IV patency established. IV site checked: no pain, redness, or swelling. IV flushed thoroughly pre-medication administration. Information reviewed with patient including reason for taking this medication. Verbalizes understanding. -- 05:57 12/10/24 SUMEET Chavez R.N. 05:57 12/10/24. HYDROmorphone (Dilaudid) IVP 1 mg given over 1 minute(s) via Site# 1. Allergies verified and confirmed 5 rights. IV patency established. IV site checked: no pain, redness, or swelling. IV flushed thoroughly pre-medication administration. Information reviewed with patient including reason for taking this medication. Verbalizes understanding. -- 05:58 12/10/24 SUMEET Chavez R.N. 07:15 12/10/24. Care transferred and report given (JAMAL Steele). -- 07:15 12/10/24 SUMEET Chavez R.N. DISPOSITION / DISCHARGE 08:20 12/10/24. Site #1 removed upon discharge. Catheter intact. Bandaid applied. -- 09:14 12/10/24 SUMEET Herrera R.N. Departure time: 08:25 12/10/2024. Condition at departure: improved. No learning barriers present. Discharge instructions provided and reviewed with the patient. Reviewed medication(s) dosing information. Prescription(s) sent electronically to pharmacy. Reviewed referral to a primary care physician for followup. Activity restrictions reviewed. Patient verbalized understanding. Written instructions provided in Palestinian. The patient was discharged by the physician. The patient was discharged home. The patient left ambulatory and via private vehicle. Family member driving. -- 09:17 12/10/24 SUMEET Herrera R.N. Departure time: 08:25 12/10/2024. -- 09:18 12/10/24 SUMEET Herrera R.N. (Electronically signed by Leonardo Hrerera R.N. 12/10/24 09:18:29 EST) Generated by [facility] 4 of 4 ED PHYSICIAN CLINICAL REPORT Observed: 0 12/10/2024 1:14 AM Status: F Source: [facility] Narrative Physician Clinical Narrative [address] [address] [phone] 12/10/2024 Patient: TOR BERMAN Sex: Female : 1990 Age: 33y Primary Insurance: MEDICARE OUTPATIENT Policy Number: [id number] Subscriber: Other Disposition: Discharge to Home Disposition Decision Time: 07:23 12/10/2024 Departure Time: 08:25 12/10/2024 Measurements Wt: 49.9 kg, Ht/Aden: 66.0 in, BMI: 17.75 Initial Vital Sign Measured Time BP MAP HR RR O2Sat ETCO2 Temp Pain GCS RTS 01:51 12/10/2024 142/107 119 91 16 99% 98.7 F 8 Time Seen: 02:55 12/10/2024. Arrived- By private vehicle. Historian- patient. HISTORY OF PRESENT ILLNESS Chief Complaint: FLANK PAIN. It is described as sharp and it is described as located in the left flank. This started last night and is still present. The patient has had nausea and vomiting. Similar symptoms previously. Patient has had similar symptoms several times. Recent medical care: Not recently seen/assessed. REVIEW OF SYSTEMS : No difficulty with urination, pain with urination or urinary frequency. CONSTITUTIONAL: No fever or chills. The patient has not had weight loss. NEUROLOGICAL: No headache. EYES: No blurred vision. CVS: No chest 1 of 12 Narrative pain. RESPIRATORY: No difficulty breathing or cough. MUSCULOSKELETAL: No joint pain. The patient has had back pain. SKIN: No skin rash. THROAT: No sore throat. GI: No constipation, black stools or hematemesis. Status: Not . PAST HISTORY See nurses notes. Cervical Cancer Chronic kidney disease (disorder) nephrostomy Surgeries: Percutaneous insertion of nephrostomy tube: (every 6 weeks) Medications: escitalopram 20 mg tablet: 1 tablet once a day. lorazepam 1 mg tablet: 1 tablet three times a day as needed. ondansetron HCl 4 mg tablet: 1 tablet four times a day as needed. oxycodone 5 mg tablet: 2 tablet every six hours as needed. Allergies: Haldol Penicillins SOCIAL HISTORY Smoker- current status unknown. Regular vaping. Drug use: marijuana. No alcohol use. ADDITIONAL NOTES The nursing notes have been reviewed. PHYSICAL EXAM Appearance: Alert. Oriented X3. Patient in mild distress. Eyes: Pupils equal, round and reactive to light. ENT: Nose normal. Dry mucous membranes present. Pharynx normal. Neck: Normal inspection. Neck supple. 2 of 12 Narrative CVS: Normal heart rate and rhythm. Heart sounds normal. Pulses normal. Respiratory: No respiratory distress. Breath sounds normal. Abdomen: Soft. Moderate tenderness in the left lower quadrant with guarding present. No rebound tenderness. Bowel sounds normal. No organomegaly. No mass. Back: Moderate CVA tenderness on the right. Skin: Skin warm and dry. No rash. Extremities: Extremities exhibit normal ROM. No lower extremity edema. Neuro: Oriented X 3. No motor deficit. No sensory deficit. LABS, X-RAYS, AND EKG CT Abdomen - Pelvis: Left percutaneous nephrostomy tube is coiled in the lower aspect of the renal pelvis. No hydronephrosis. Volume loss and scarring of the left kidney. The right kidney is normal. The ureters and urinary bladder are normal. Bowel is normal in caliber and wall thickness. The appendix is normal. Liver spleen pancreas and gallbladder are normal. No free intraperitoneal air or fluid. No acute osseous abnormality. The study was interpreted by the radiologist. Interpretation time: 05:31 12/10/2024. Laboratory Tests: CBC + DIFF Final BINA: 12/10/2024 03:15:00 EST MsgRcvd: 12/10/2024 04:01 EST Lab Test Result Reference Status Received Comments 12/10/2024 04:01 CBC-COMPLETE CBC + DIFF Final EST BLOOD COUNT 11.7 x 10/UL 12/10/2024 04:01 WBC 4.5 - 10.8 Final Above high normal EST 12/10/2024 04:01 RBC 4.35 x 10/UL 4.10 - 5.30 Final EST 12/10/2024 04:01 HEMOGLOBIN 14.4 g/dl 12.0 - 16.0 Final EST 12/10/2024 04:01 HEMATOCRIT 42.6 % 34.0 - 46.0 Final EST 3 of 12 Narrative Lab Test Result Reference Status Received Comments 12/10/2024 04:01 MCV 98 fl 80 - 99 Final EST 12/10/2024 04:01 MCH 33 pg 27 - 33 Final EST 12/10/2024 04:01 MCHC 34 X10 3 32 - 36 Final EST 12/10/2024 04:01 RDW/CV 14.4 % 12.0 - 15.6 Final EST 12/10/2024 04:01 PLATELET 444 x10/UL 150 - 450 Final EST 12/10/2024 04:01 AUTOMATED MPV 7.1 fl 6.6 - 10.5 Final EST DIFFERENTIAL 12/10/2024 04:01 NEUT % 74.6 % 46.0 - 76.0 Final EST 15.3 % 12/10/2024 04:01 LYMPH % 20.0 - 45.0 Final Below low normal EST 12/10/2024 04:01 MONOS % 8.2 % 0.0 - 10.0 Final EST 12/10/2024 04:01 EO % 1.6 % 0.0 - 7.0 Final EST 12/10/2024 04:01 BASO % 0.3 % 0.0 - 2.0 Final EST 12/10/2024 04:01 Lymph # 1.79 x10/UL 0.80 - 2.80 Final EST 8.76 x10/UL 12/10/2024 04:01 Neut # 1.50 - 7.10 Final Above high normal EST 4 of 12 Narrative Lab Test Result Reference Status Received Comments 12/10/2024 04:01 Green # 0.96 x10/UL 0.20 - 1.00 Final EST 12/10/2024 04:01 EO # 0.18 x10/UL 0.00 - 0.50 Final EST 12/10/2024 04:01 Baso # 0.04 x10/UL 0.00 - 0.10 Final EST 12/10/2024 04:01 MANUAL DIFF N/A New Order EST 12/10/2024 04:01 MORPHOLOGY N/A New Order EST CMP with eGFR Final BINA: 12/10/2024 03:15:00 EST MsgRcvd: 12/10/2024 04:14 EST Lab Test Result Reference Status Received Comments COMPREHENSIVE 12/10/2024 CMP with eGFR Final METABOLIC 04:14 EST PANEL 12/10/2024 SODIUM 140 mmol/l 136 - 145 Final 04:14 EST 12/10/2024 POTASSIUM 3.7 mmol/L 3.5 - 5.1 Final 04:14 EST 12/10/2024 CHLORIDE 102 mmol/L 98 - 107 Final 04:14 EST 12/10/2024 CO2 28.0 mmol/L 21.0 - 32.0 Final 04:14 EST 12/10/2024 GLUCOSE 91 mg/dl 74 - 106 Final 04:14 EST 5 of 12 Narrative Lab Test Result Reference Status Received Comments 12/10/2024 BUN 12 mg/dl 7 - 18 Final 04:14 EST 1.09 mg/dl 12/10/2024 CREATININE Above high 0.55 - 1.02 Final 04:14 EST normal 12/10/2024 AST/SGOT 14 U/L 13 - 39 Final 04:14 EST 12/10/2024 ALK PHOS 82 U/L 46 - 116 Final 04:14 EST 12/10/2024 CALCIUM 9.1 mg/dl 8.5 - 10.1 Final 04:14 EST TOTAL 12/10/2024 7.4 g/dl 6.4 - 8.2 Final PROTEIN 04:14 EST 12/10/2024 ALBUMIN 4.2 g/dL 3.4 - 5.0 Final 04:14 EST 12/10/2024 GLOBULIN 3.2 G/DL 1.5 - 3.8 Final 04:14 EST 12/10/2024 A/G RATIO 1.3 0.9 - 1.6 Final 04:14 EST 12/10/2024 TOTAL BILI 0.4 mg/dl 0.2 - 1.0 Final 04:14 EST 12/10/2024 B/C RATIO 11 ratio 0 - 30 Final 04:14 EST 12 U/L 12/10/2024 ALT/SGPT 16 - 63 Final Below low normal 04:14 EST 12/10/2024 ANION GAP 14 mmol/L 10 - 20 Final 04:14 EST 6 of 12 Narrative Lab Test Result Reference Status Received Comments 12/10/2024 AGE 33 years Final 04:14 EST 57 ML/MINUTE 12/10/2024 eGFR 60 - 999 Final Below low normal 04:14 EST ACCORDING TO THE NATIONAL KIDNEY DISEASE EDUCATION PROGRAM(NKDE), A NORMAL eGFR IS A VALUE GREATER THAN OR EQUAL TO 60 ML/MIN/1.73 SQ METERS. 12/10/2024 CHRONIC KIDNEY eGFR(AA) >60 ML/MINUTE 60 - 999 Final 04:14 EST DISEASE: <60mL/MIN/1.73 SQ METERS KIDNEY FAILURE: <15mL/MIN/1.73 SQ METERS THIS TEST SHOULD ONLY BE USED FOR PATIENTS 18 YEARS OF AGE AND OLDER. CPK Final BINA: 12/10/2024 03:15:00 EST MsgRcvd: 12/10/2024 04:14 EST 7 of 12 Narrative Lab Test Result Reference Status Received Comments 12/10/2024 04:14 CPK 86 U/L 26 - 192 Final EST SERUM QUAL Final BINA: 12/10/2024 03:15:00 EST MsgRcvd: 12/10/2024 04:26 EST Lab Test Result Reference Status Received Comments 12/10/2024 04:26 NEGATIVE NEGATIVE Final SER EST 12/10/2024 04:26 INTERNAL QC PASS Final EST EXTERNAL QC 12/10/2024 04:26 YES Final DONE? EST URINALYSIS Final BINA: 12/10/2024 04:12:00 EST MsgRcvd: 12/10/2024 05:47 EST Lab Test Result Reference Status Received Comments 12/10/2024 05:47 URINALYSIS Final URINALYSIS EST 12/10/2024 05:47 Specimen Type R New Order EST NORMAL: 12/10/2024 05:47 Color yellow Final YELLOW EST NORMAL: 12/10/2024 05:47 Clarity clear Final CLEAR EST NORMAL: 12/10/2024 05:47 ph 7 Final 5.0-8.0 EST Narrative Lab Test Result Reference Status Received Comments NORMAL: 12/10/2024 05:47 Protein NEG Final NEGATIVE EST NORMAL: 12/10/2024 05:47 Glucose NORM Final NORMAL EST NORMAL: 12/10/2024 05:47 Ketone NEG Final NEGATIVE EST NORMAL: 12/10/2024 05:47 Bilirubin NEG Final NEGATIVE EST NORMAL: 12/10/2024 05:47 Blood NEG Final NEGATIVE EST NORMAL: 12/10/2024 05:47 Urobilinog NORM Final NORMAL EST NORMAL: 12/10/2024 05:47 Sp Stem 1.015 Final 1.010-1.030 EST NORMAL: 12/10/2024 05:47 Nitrite NEG Final NEGATIVE EST NORMAL: 12/10/2024 05:47 Leukocytes NEG Final NEGATIVE EST 12/10/2024 05:47 Microscopic NOT INDICATED Final EST Diagnostic Study Tests: CT ABDOMEN/PELVIS W Final EXAM Date: 12/10/2024 05:24:00 EST MsgRcvd: 12/10/2024 13:52 EST [place] [id number] Narrative Patient: ILEANA BERMANAusten Crane Phone#: : 1990 Age: 33 Gender: F Pt. Type: ER Account: [id number] Location: 052 Ordering: GONZALEZ PINEDA Exam Date: 12/10/2024/5:07 Family Phys: Charge Code: [id number] Physician: [place] Order #: [id number] Dose#: [id number] PROCEDURE: CT ABDOMEN/PELVIS WITH CONTRAST COMPARISON: [facility], CT, ABDOMEN/PELVIS W CON, 11/06/2024, 2:43. INDICATIONS: Flank pain. TECHNIQUE: After obtaining the patient's consent, CT images were created with non-ionic intravenous contrast material. All CT scans at this facility use dose modulation, iterative reconstruction, and/or weight based dosing when appropriate to reduce radiation dose to as low as reasonably achievable. IV CONTRAST: Omnipaque 350,80ml TOTAL DOSE: 9.0 CTDIvol(mGy) FINDINGS: LIVER: Normal. No enlargement, atrophy, abnormal density, or significant focal lesion. BILIARY: Normal. No visible dilatation or calcification. PANCREAS: Normal. No lesion, fluid collection, ductal dilatation, or atrophy. SPLEEN: Normal. No enlargement or focal lesion. KIDNEYS: Left nephrostomy tube is present coiled at the renal pelvis. Peripelvic cyst is present. Calculi are present near the left ureterovesical junction. Is difficult to determine if these lie within are in close approximation to the ureter. There is no evidence of hydronephrosis ADRENALS: Normal. No mass or enlargement. AORTA/VASCULAR: Normal. No aneurysm or dissection. RETROPERITONEUM: Normal. No mass or adenopathy. BOWEL/MESENTERY: There is underfilling versus mucosal thickening of the rectosigmoid colon. ABDOMINAL WALL: Normal. No mass or hernia. URINARY BLADDER: Normal. No visible focal wall thickening, lesion, or calculus. PELVIC NODES: Normal. No adenopathy. PELVIC ORGANS: The uterus is absent. BONES: Normal. No bony lesion or fracture. LUNG BASES: Normal. No visible pulmonary or pleural disease. Continued Report - Page 2 of 2 10 of 12 Narrative Patient: TOR BERMAN Phone#: : 1990 Age: 33 Gender: F Pt. Type: ER Account: [id number] Location: 052 Ordering: GONZALEZ PINEDA Exam Date: 12/10/2024/5:07 Family Phys: Charge Code: [id number] Physician: Ingham Order #: [id number] Dose#: 9.0 OTHER: Negative. CONCLUSION: 1. Left nephrostomy tube is present. Calculi at the distal left ureter versus adjacent to the ureter are noted. 2. There is mucosal thickening versus under filling of the rectosigmoid colon. Dictated by: Cynthia Douglas MD on 12/10/2024 at 13:42 Approved by: Cynthia Douglas MD on 12/10/2024 at 13:46 PROGRESS AND PROCEDURES MEDICAL DECISION MAKING: Ordered tests include a CT of the abdomen and pelvis, complete blood count, chemistries, liver function tests and urinalysis. The patient has been stable. IV fluids and narcotics have been given and antiemetics have been given. (Patient had her nephrostomy tube which is on the left side replaced back in October. She is not scheduled to have it replaced again until later this month. She does follow with a urologist he can. States she is experiencing a lot of pain on the left side in the flank region. Has had some nausea and vomiting intermittently as well.). Disposition: Condition: good. Disposition Decision Time: 07:23 12/10/2024. Patient discharged to Home. Discharged in good condition. Discharge decision based on the following: patient's condition is stable; patient is ambulatory; patient drinking fluids; patient's pain is controlled; patient's exam is stable; no seriously abnormal test results; stable condition on multiple repeat evaluations; social support is adequate; transportation is available; follow-up is available; clinical impression is consistent with outpatient treatment. CLINICAL IMPRESSION Mild nausea. No vomiting. Chronic left flank pain DISCHARGE INSTRUCTIONS 11 of 12 Narrative No strenuous activity. Warnings: GENERAL WARNINGS: Return or contact your physician immediately if your condition worsens or changes unexpectedly, if not improving as expected, or if other problems arise. Prescription Medications: ondansetron 4 mg disintegrating tablet: Take 1 tablet on tongue every eight hours for nausea/vomiting for 5 days, dispense 15 tablet. Refills 0. Pharmacy: [facility] [employer] - [address] [place] [address]. Follow-up: Follow up with doctor. Reason for referral: evaluation and treatment. Follow-up with your urologist on December 18 as scheduled for nephrostomy tube replacement. Understanding of the discharge instructions verbalized by patient. (Electronically signed by Gonzalez Pineda D.O. 12/11/24 19:34:34 EST) Generated by [employer] 12 of 12 ED MED ADMINISTRATION DETAIL Observed: 0 12/10/2024 1:14 AM Status: F Source: [facility] Counter Top Maker Medication Administration Record [place] [id number] [place] [address] [id number] 12/10/2024 Patient: TOR BERMAN Sex: Female : 1990 Age: 33y MEASUREMENTS: Wt: 49.9 kg, Ht/Aden: 66.0 in, BMI: 17.75 ALLERGIES: Haldol, Penicillins Medication Ordered Medication Administration Date/Time IV NS 0.9 % 1000 04:16 12/10 IV NS 0.9 % 1000 mL started in bag#1 1000 mL at Started mL at 999 mL/hr 999 mL/hr over 1 hour(s) via Site# 1. Allergies verified and 04:16 12/10/2024 (NOW x1) confirmed 5 rights. IV patency established. IV site checked: no pain, Sandra Chavez R.N. redness, or swelling. IV flushed thoroughly pre-medication Stopped administration. Information reviewed with patient including reason 04:56 12/10/2024 for taking this medication. Verbalizes understanding. Completed per Sandra Chavez R.N. protocol. - 04:19 Sandra Chavez R.N. Scanned 04:56 12/10 Medication Discontinued: bag #1 infused. Total amount infused: 1000 mL. IV patency established. IV site checked: no pain, redness, or swelling. IV flushed thoroughly post-medication administration. - 04:56 Sandra Chavez R.N. KetorOLAC 04:23 12/10 KetorOLAC (Toradol) IVP 15 mg given over 1 Given (Toradol) IVP 30 mg minute(s) via Site# 1. Allergies verified and confirmed 5 rights. IV 04:23 12/10/2024 (NOW x1) patency established. IV site checked: no pain, redness, or swelling. Sandra Chavez R.N. IV flushed thoroughly pre-medication administration. Information Not Scanned reviewed with patient. Verbalizes understanding. - 04:24 Sandra Chavez R.N. 1 of 2 Counter Top Maker Medication Ordered Medication Administration Date/Time Zofran IVP 4 mg 04:18 12/10 Zofran IVP 4 mg given over 1 minute(s) via Site# 1. Given (NOW x1) Allergies verified and confirmed 5 rights. IV patency established. IV 04:18 12/10/2024 site checked: no pain, redness, or swelling. IV flushed thoroughly Sandra Chavez R.N. pre-medication administration. Information reviewed with patient Scanned including reason for taking this medication. Verbalizes understanding. - 04:19 Sandar Chavez R.N. HYDROmorphone 04:21 12/10 HYDROmorphone (Dilaudid) IVP 1 mg given over 1 Given (Dilaudid) IVP 1 mg minute(s) via Site# 1. Allergies verified and confirmed 5 rights. IV 04:21 12/10/2024 (NOW x1, HIGH patency established. IV site checked: no pain, redness, or swelling. Sandra Chavez R.N. ALERT IV flushed thoroughly pre-medication administration. Information Scanned MEDICATION) reviewed with patient including reason for taking this medication. Verbalizes understanding. - 04:22 Sandra Chavez R.N. 04:56 12/10 Medication Response: Pain is improving. The patient feels better. (03/12). - 04:57 Sandra Chavez R.N. Zofran IVP 4 mg 05:56 12/10 Zofran IVP 4 mg given over 1 minute(s) via Site# 1. Given (NOW x1) Allergies verified and confirmed 5 rights. IV patency established. IV 05:56 12/10/2024 site checked: no pain, redness, or swelling. IV flushed thoroughly Sandra Chavez R.N. pre-medication administration. Information reviewed with patient Scanned including reason for taking this medication. Verbalizes understanding. - 05:57 Sandra Chavez R.N. HYDROmorphone 05:57 02 HYDROmorphone (Dilaudid) IVP 1 mg given over 1 Given (Dilaudid) IVP 1 mg minute(s) via Site# 1. Allergies verified and confirmed 5 rights. IV 05:57 12/10/2024 (NOW x1, HIGH patency established. IV site checked: no pain, redness, or swelling. Sandra Chavez R.N. ALERT IV flushed thoroughly pre-medication administration. Information Scanned MEDICATION) reviewed with patient including reason for taking this medication. Verbalizes understanding. - 05:58 Sandra Chavez R.N. 2 of 2 ED ORDER SHEET (CPOE ONLY) Observed: 05/2025 1:14 AM Status: F Source: [facility] Order Sheet Order Sheet [address] [place] [address] [id number] 12/10/2024 Patient: TOR BERMAN Sex: Female : 1990 Age: 33y MEASUREMENTS: Wt: 49.9 kg, Ht/Aden: 66.0 in, BMI: 17.75 ALLERGIES: Haldol, Penicillins MEDICATION/IV/DRIP/FLUID ORDERS Order Description Priority Entered Acknowledged Completed IV NS 0.9 %1000 mL at 999 03:09 12/10/2024 03:25 04:19 mL/hr (NOW x1) Gonzalez Pineda D.O. 12/10/2024 12/10/2024 Yohana Zapata R.N. KetorOLAC (Toradol) IVP30 mg 03:10 12/10/2024 03:25 04:24 (NOW x1) Gonzalez Pineda D.O. 12/10/2024 12/10/2024 Yohana Zapata R.N. Reason for ordering with alerts: Clinical consideration given --03:10 12/10/2024 Gonzalez Pineda D.O. Zofran IVP4 mg (NOW x1) 03:10 12/10/2024 03:25 04:19 Gonzalez Pineda D.O. 12/10/2024 12/10/2024 Yohana Zapata R.N. Reason for ordering with alerts: Clinical consideration given --03:10 12/10/2024 Gonzalez Pineda D.O. HYDROmorphone (Dilaudid) 03:51 12/10/2024 04:22 IVP1 mg (NOW x1, HIGH ALERT Petra StanfordO. 12/10/2024 MEDICATION) Sandra Chavez R.N. 1 of 3 Order Sheet Reason for ordering with alerts: Clinical consideration given --03:51 12/10/2024 Gonzalez Pineda D.O. Zofran IVP4 mg (NOW x1) 03:52 12/10/2024 05:57 Petra StanfordOApril 12/10/2024 Sandra Chavez R.N. Reason for ordering with alerts: Clinical consideration given --03:52 12/10/2024 Gonzalez Pineda D.O. HYDROmorphone (Dilaudid) 05:37 12/10/2024 05:51 05:58 IVP1 mg (NOW x1, HIGH ALERT Gonzalez Pineda D.O. 12/10/2024 12/10/2024 MEDICATION) Yohana Zapata R.N. Reason for ordering with alerts: Clinical consideration given --05:37 12/10/2024 Gonzalez Pineda D.O. Zofran IVP4 mg (NOW x1) 05:37 12/10/2024 05:51 Gonzalez Pineda D.O. 12/10/2024 Jamison ZapataNApril Reason for ordering with alerts: Clinical consideration given --05:37 12/10/2024 Gonzalez Pineda D.O. LAB ORDERS Order Description Priority Entered Acknowledged Collected Completed CBC w Diff Stat Stat 03:09 12/10/2024 03:25 12/10/2024 03:25 12/10/2024 Kendra Stanford R.N. Anne Rutt, R.N. CMP Stat Stat 03:09 12/10/2024 03:25 12/10/2024 03:25 12/10/2024 Kendra Stanford R.N. Anne Rutt, R.N. CPK (CK) Stat Stat 03:09 12/10/2024 03:25 12/10/2024 03:25 12/10/2024 Kendra Stanford R.N. Anne Rutt, RAprilNApril Urinalysis Stat Stat 03:09 12/10/2024 03:25 12/10/2024 04:43 12/10/2024 Kendra Stanford R.N. Anne Rutt, R.N. 2 of 3 Order Sheet HCG, Qual Serum Stat Stat 03:09 12/10/2024 03:25 12/10/2024 03:25 12/10/2024 Kendra Stanford R.N. Anne Rutt, R.N. DIAGNOSTIC STUDY ORDERS Order Description Priority Entered Acknowledged Completed CT ABD/PEL w Cont Stat Stat 03:09 12/10/2024 03:25 06:05 Gonzalez Pineda D.O. 12/10/2024 12/10/2024 Yohana Zapata, RAprilNApril Order Comments: 03:09 12/10/2024: Status: Not . Gonzalez Pineda D.O. Reason for Study: Abdominal Pain STAFF ORDERS Order Description Priority Entered Acknowledged Collected Completed [Electronically signed by Gonzalez Pineda D.O. (12/11/2024 19:34 EST)] 3 of 3 ED PHYSICIAN DISCHARGE REPORT Observed: 12/10/2024 1:14 AM Status: F Source: [facility] Discharge Instructions Discharge Summary [address] [address] [id number] 12/10/2024 Patient: TOR BERMAN Sex: Female : 1990 Age: 33y Thank you for visiting [facility]. You have been evaluated today by Gonzalez Pineda D.O. for the following condition(s): Principal Diagnosis Mild nausea. No vomiting. Chronic left flank pain INSTRUCTIONS No strenuous activity. Warnings: GENERAL WARNINGS: Return or contact your physician immediately if your condition worsens or changes unexpectedly, if not improving as expected, or if other problems arise. Prescription Medications: ondansetron 4 mg disintegrating tablet: Take 1 tablet on tongue every eight hours for nausea/vomiting for 5 days, dispense 15 tablet. Refills 0. Pharmacy: [facility]. - [address] [place] [address]. Follow-up: Follow up with doctor. Reason for referral: evaluation and treatment. Follow-up with your urologist on December 18 as scheduled for nephrostomy tube replacement. Understanding of the discharge instructions verbalized by patient. 1 of 4 Discharge Instructions You have been given the following additional information: Flank Pain with Uncertain Cause Patient Signature Facility Drug Safety Physician Date/Time General Instructions with ExitWriter [facility] [address] [place] [address] [phone] 12/10/2024 Patient: TOR BERMAN Sex: Female : 1990 Age: 33y Thank you for visiting [facility]. You have been evaluated today by Gonzalez Pineda D.O. for the following condition(s): Principal Diagnosis Mild nausea. No vomiting. Chronic left flank pain INSTRUCTIONS No strenuous activity. Warnings: GENERAL WARNINGS: Return or contact your physician immediately if your condition worsens or changes unexpectedly, if not improving as expected, or if other problems arise. Prescription Medications: ondansetron 4 mg disintegrating tablet: Take 1 tablet on tongue every eight hours for nausea/vomiting for 5 days, dispense 15 tablet. Refills 0. Pharmacy: [facility]. - [address] [place] [address]. 2 of 4 Discharge Instructions Follow-up: Follow up with doctor. Reason for referral: evaluation and treatment. Follow-up with your urologist on December 18 as scheduled for nephrostomy tube replacement. Understanding of the discharge instructions verbalized by patient. ADDITIONAL INFORMATION Flank Pain with Uncertain Cause The flank is the area between your upper belly (abdomen) and your back. Pain there is often caused by a problem with your kidneys. It might be a kidney infection or a kidney stone. Other causes of flank pain include spinal arthritis, a pinched nerve from a back injury, a rib injury, a bruise, a back muscle strain, inflammation, or spasm. The cause of your flank pain is not certain. You may need other tests. Home care Follow these tips when caring for yourself at home: You may use acetaminophen or ibuprofen to control pain, unless your healthcare provider prescribed another medicine. If you have chronic liver or kidney disease, talk with your provider before taking these medicines. Also talk with your provider first if you've ever had a stomach ulcer or digestive bleeding. If the pain is coming from [...] with your healthcare provider if your symptoms don't get better over the next few days. 3 of 4 Discharge Instructions When to seek medical advice Call your healthcare provider right away if any of these happen: Repeated vomiting Fever of 100.4F (38C) or higher, or as directed by your healthcare provider Flank pain that gets worse Pain that spreads to the front of your belly (abdomen) Dizziness, weakness, or fainting Blood in your urine Burning feeling when you urinate or the need to urinate often Pain in one of your legs that gets worse Numbness or weakness in a leg Activities [address] [place] [address] [phone] 12/10/2024 Patient: TOR BERMAN Sex: Female : 1990 Age: 33y You have been given the following instructions regarding activity, work, and/or school. No strenuous activity. Facility Drug Safety Physician 4 of 4 EXPORT CLERK CYTOLOGY REPORT Observed: 11/15/2024 9:06 AM Status: F Source: [facility] . Pathology Reports Accession: Collected Date/Time: Received Date/Time: Pathologist: [id number] 11/15/2024 09:06 EST 11/15/2024 18:00 MD FIDELINA MCGHEE Reel Worker Cytology Report SPECIMEN: Specimen Description: Liquid Prep w/ HPV Specimen: Cervical Screening or Diagnostic: Screening RELEVANT HISTORY: LMP: radiation SPECIMEN ADEQUACY: SATISFACTORY FOR EVALUATION Endocervical/Transformational zone component absent/insufficient INTERPRETATION/RESULTS: NEGATIVE FOR INTRAEPITHELIAL LESION OR MALIGNANCY ORGANISMS: Shift in tom consistent with bacterial vaginosis SUGGESTIONS/EDUCATIONAL NOTES: This [...] Reports Accession: Collected Date/Time: Received Date/Time: Pathologist: [id number] 11/15/2024 09:06 EST 11/15/2024 18:00 EST MD FIDELINA NAVA COMMENT: This Pap Test was successfully processed and evaluated with the assistance of the [employer] Test Imaging System. Electronically Signed by Pathology report verified by [facility] Screened by: BASSAM Electronically signed by FIDELINA NAVA MD Sign-Out Date: 11/18/2024 15:34 Performing Lab: [facility], [address] [place] [address] Pathology Dept Disclaimer The Pap test is a screening test for cervical cancer. As evidenced by published data, it is subject to both inherent false negative and false positive results. Your patient's results should be interpreted in context with pertinent clinical history including gynecological examination. HPV Collected: 9:06 AM Status: F Source: [facility] Order Comment: Order placed by AP_HPV_ORDER rule from [id number] TYPE CODE TESTS RESULT OUT OF RANGE REFERENCE UNITS LAB BFHPV(LOINC) HPV Source Cervix LAB HPVINT(LOINC) HPV Interp See I nterp HPVN Result Comment: High Risk HP V Typing: NEGATIVE HPV types 16, 18, 31, [...] and sufficient DNA to be detected. See [facility] HPVN Performed By: #### HPV #### [place] [address] CT ABDOMEN/PELVIS W Observed: 11/06/2024 3:01 AM Status: F Source: [place] [id number] Patient: TOR BERMAN Phone#: : 1990 Age: 33 Gender: F Pt. Type: ER Account: [id number] Location: [facility] Ordering: DR. KORINA AGUILAR Exam Date: 11/06/2024/2:43 Family Phys: Charge Code: [id number] Physician: [place] Order #: [id number] Dose#: [id number] PROCEDURE: CT ABDOMEN/PELVIS WITH CONTRAST COMPARISON: [facility], CT, ABDOMEN/PELVIS W CON, 05/17/2024, 19:58. [facility], CT, ABDOMEN/PELVIS W/O CON, 08/31/2024, 7:18. INDICATIONS: Abdominal pain. TECHNIQUE: After obtaining the patient's consent, CT images were created with non-ionic intravenous contrast material. All CT scans at this facility use dose modulation, iterative reconstruction, and/or weight based dosing when appropriate to reduce radiation dose to as low as reasonably achievable. IV CONTRAST: Omnipaque 350,100ml TOTAL DOSE: 9.80 CTDIvol(mGy) FINDINGS: LIVER: Normal. No enlargement, atrophy, abnormal density, or significant focal lesion. BILIARY: Gallbladder is present PANCREAS: Normal. No lesion, fluid collection, ductal dilatation, or atrophy. SPLEEN: Normal. No enlargement or focal lesion. KIDNEYS: There is a percutaneous left nephrostomy in the left renal pelvis. The pigtail is partially on wound and protrudes into the proximal ureter. There are areas left renal scarring. Mild left renal cortical volume loss. No hydronephrosis. Stable small calcifications in the region of the distal left ureter, possibly representing phlebolith versus ureteral calcifications, series 2 image 60 4 to 62. Kidneys enhance excrete contrast symmetrically. Right kidney is unremarkable enhancement. No right hydronephrosis. ADRENALS: Normal. No mass or enlargement. AORTA/VASCULAR: No aortic aneurysm. RETROPERITONEUM: There is a stable mildly prominent left perinephric lymph node measuring 1.4 x 0.8 cm, similar to priors. BOWEL/MESENTERY: No bowel obstruction or dilatation. No significant stool burden. There is persistent hypodense infiltration the wall of the colon, given the persistence Continued Report - Page 2 of 2 Patient: TOR BERMAN Phone#: : 1990 Age: 33 Gender: F Pt. Type: ER Account: [id number] Location: 052 Ordering: DR. KORINA AGUILAR Exam Date: 11/06/2024/2:43 Family Phys: Charge Code: [id number] Physician: Ingham Order #: [id number] Dose#: [id number] over time this likely represents fatty infiltration. This may be sequela inflammatory bowel disease versus incidental finding. ABDOMINAL WALL: Left percutaneous nephrostomy tube. Small umbilical hernia. URINARY BLADDER: Urinary bladder is partially filled. Subtle stranding adjacent to the urinary bladder may represent cystitis. PELVIC NODES: Normal. No adenopathy. PELVIC ORGANS: Uterus is absent. No adnexal mass. BONES: Normal. No bony lesion or fracture. LUNG BASES: Normal. No visible pulmonary or pleural disease. OTHER: Negative. CONCLUSION: 1. Urinary bladder underdistended limiting evaluation. There appears to be mild stranding adjacent to the bladder, correlate for cystitis 2. Percutaneous left nephrostomy tube, pigtail loss partially unwound and protrudes into the proximal left ureter. No left hydronephrosis. Dictated by: Stacey Watt MD on 11/06/2024 at 16:55 Approved by: Stacey Watt MD on 11/06/2024 at 17:09 CHEST 1 VIEW Observed: 11/06/2024 2:52 AM Status: F Source: [place] [id number] Patient: TOR BERMAN Phone#: : 1990 Age: 33 Gender: F Pt. Type: ER Account: [id number] Location: [facility] Ordering: DR. KORINA AGUILAR Exam Date: 11/06/2024/2:32 Family Phys: Charge Code: [id number] Physician: Ingham Order #: [id number] Dose#: PROCEDURE: X-RAY CHEST 1 VIEW COMPARISON: [facility], XR, CHEST 1 VIEW, 12/17/2023, 20:48. INDICATIONS: Pneumonia. FINDINGS: LUNGS: Normal. No significant pulmonary parenchymal abnormalities. VASCULATURE: Normal. Unremarkable pulmonary vasculature. CARDIAC: Normal. No cardiac silhouette abnormality or cardiomegaly. MEDIASTINUM: Normal. No visible mass or adenopathy. PLEURA: Normal. No effusion or pleural thickening. BONES: Normal. No fracture or visible bony lesion. OTHER: Right chest wall medication port in stable position CONCLUSION: No acute disease. No significant change has occurred. Dictated by: Stacey Watt MD on 11/06/2024 at 15:32 Approved by: Stacey Watt MD on 11/06/2024 at 15:39 CULTURE BLOOD [VANESSA] Observed: 2024 2:25 AM Status: F Source: [facility] CULTURE BLOOD [VANESSA] _BLOOD CULTURE_ GO TO [employer] REPORTS AND ATTACHMENTS FOR SCANNED REPORT 11/[email or web address] Performed By: #### [id number] ## ## [facility],[address] [place] [address] URINALYSIS Collected: 2:25 AM Status: F Source: [facility] TYPE CODE TESTS RESULT OUT OF RANGE REFERENCE UNITS LAB URINALYSIS([facility] [place]) URINALYSIS Result Comment: URINALYSIS LAB Specimen Type(LOINC) Specimen Type R LAB Color(LOINC) Color yellow NORMAL: YELLOW LAB Clarity(LOINC) Clarity SL. CLOUDY Abnormal NORM AL: CLEAR LAB ph(LOINC) ph 6 NORMAL: 5.0-8.0 Result Comment: UNABLE TO PE RFORM PROTEIN LAB Glucose(LOINC) Glucose NORM RAJIV L: NORMAL LAB Ketone(LOINC) Ketone NEG NORMAL : NEGATIVE LAB Bilirubin(LOIN C) Bilirubin NEG NORMAL: NEGATIVE LAB Blood(LOINC) Blood 10 Abnormal NORMAL: NEGATIVE LAB Urobilinog([facility] NC) Urobilinog NORM NORMAL: NORMAL LAB Sp Stem(LOINC) Sp Stem 1.020 NORMAL: 1.010-1.030 LAB Nitrite(LOINC) Nitrite NEG RAJIV L: NEGATIVE LAB Leukocytes([facility] NC) Leukocytes NEG NORMAL: NEGATIVE LAB Microscopic(LO INC) Microscopic SEE BELOW Result Comment: MICROSCOPIC LAB Wbc(LOINC) Wbc NONE 0-5/hpf LAB Rbc(LOINC) Rbc 0-5 0-3/hpf LAB Casts(LOINC) Casts NONE LAB Crystals(LOINC ) Crystals NONE LAB Amorphous(LOIN C) Amorphous NONE LAB Bacteria(LOINC ) Bacteria TRACE LAB Epi Cells(LOINC) Epi Cells OCC LAB Mucous(LOINC) Mucous NONE LAB Yeast(LOINC) Yeast NONE Performed By: #### [id number] ## ## [facility],[address] [place] [address] CBL Observed: 11/06/2024 2:15 AM Status: F Source: [facility] . MICRO - Microbiology PROCEDURE: Blood Culture (bacterial) [...] This test was performed at: [facility], [address] [place] [address], [id number]- , [place] TROPONIN Collected: 1:11 AM Status: F Source: [facility] TYPE CODE TESTS RESULT OUT OF RANGE REFERENCE UNITS LAB HS TROPONIN(LOINC) HS TROPONIN <4.0 0.0 - 51.4 pg/mL Performed By: #### [id number] ## ## [facility],[address] [place] [address] CBC + DIFF Collected: 1:11 AM Status: F Source: [facility] TYPE CODE TESTS RESULT OUT OF RANGE REFERENCE UNITS LAB CBC + DIFF(LOINC) CBC + DIFF Result Comment: CBC-COMPLET E BLOOD COUNT LAB WBC(LOINC) WBC 10.1 4.5 - 10.8 x 10EE3/UL LAB RBC(LOINC) RBC 4.15 4.10 - 5.30 x 10EE6/UL LAB HEMOGLOBIN([facility] [place]) HEMOGLOBIN 13.9 12.0 - 16.0 g/dl LAB HEMATOCRIT([facility] NC) HEMATOCRIT 40.4 34.0 - 46.0 % LAB MCV(LOINC) MCV 97 80 - 99 fl LAB MCH(LOINC) MCH 33 27 - 33 pg LAB MCHC(LOINC) MCHC 34 32 - 36 X10 3 LAB RDW/CV(LOINC) RDW/CV 14.8 12.0 - 15.6 % LAB PLATELET(LOINC ) PLATELET 457 High 150 - 450 x10EE3/UL LAB MPV(LOINC) MPV 6.6 6.6 - 10.5 fl Result Comment: AUTOMATED DI FFERENTIAL LAB NEUT %(LOINC) NEUT % 63.8 46.0 - 76.0 % LAB LYMPH %(LOINC) LYMPH % 25.3 20.0 - 45.0 % LAB MONOS %(LOINC) MONOS % 9.0 0.0 - 10.0 % LAB EO %(LOINC) EO % 1.5 0.0 - 7.0 % LAB BASO %(LOINC) BASO % 0.3 0.0 - 2.0 % LAB Lymph #(LOINC) Lymph # 2.56 0.80 - 2.80 x10EE 3/UL LAB Neut #(LOINC) Neut # 6.45 1.50 - 7.10 x10EE3 /UL LAB Green #(INC) Green # 0.91 0.20 - 1.00 x10EE3 /UL LAB EO #(INC) EO # 0.15 0.00 - 0.50 x10EE3/U L LAB Baso #([facility]) Baso # 0.03 0.00 - 0.10 x10EE3 /UL LAB MANUAL DIFF([facility]) MANUAL DIFF N/A LAB MORPHOLOGY([facility]) MORPHOLOGY N/A Performed By: #### [id number] ## ## [facility],[address] [place] [address] CMP WITH EGFR Collected: 5 1:11 AM Status: F Source: [facility] TYPE CODE TESTS RESULT OUT OF RANGE REFERENCE UNITS LAB CMP with eGFR([facility]) CMP with eGFR Result Comment: COMPREHENSIV E METABOLIC PANEL LAB SODIUM(INC) SODIUM 141 136 - 145 mmol/l LAB POTASSIUM(IN C) POTASSIUM 3.9 3.5 - 5.1 mmol/L LAB CHLORIDE(INC ) CHLORIDE 101 98 - 107 mmol/L LAB CO2(INC) CO2 28.6 21.0 - 32.0 mmol/L LAB GLUCOSE([facility]) GLUCOSE 79 74 - 106 mg/dl LAB BUN(INC) BUN 7 7 - 18 mg/dl LAB CREATININE([facility] [place]) CREATININE 1.08 High 0.55 - 1.02 mg/dl LAB AST/SGOT(INC ) AST/SGOT 12 Low 13 - 39 U/L LAB ALK PHOS(INC) ALK PHOS 81 46 - 116 U/L LAB CALCIUM(LOINC) CALCIUM 9.1 8.5 - 10.1 mg/dl LAB TOTAL PROTEIN(INC) TOTAL PROTEIN 7.4 6.4 - 8.2 g/dl LAB ALBUMIN(INC) ALBUMIN 3.9 3.4 - 5.0 g/dL LAB GLOBULIN(INC ) GLOBULIN 3.5 1.5 - 3.8 G/DL LAB A/G RATIO(LOINC) A/G RATIO 1.1 0.9 - 1.6 LAB TOTAL BILI(LOINC) TOTAL BILI 0.5 0.2 - 1.0 mg/dl LAB B/C RATIO(LOINC) B/C RATIO 6 0 - 30 ratio LAB ALT/SGPT(LOINC ) ALT/SGPT 13 Low 16 - 63 U/L LAB ANION GAP(LOINC) ANION GAP 15 10 - 20 mmol/L LAB AGE(LOINC) AGE 33 years LAB eGFR(LOINC) eGFR 58 Low 60 - 999 ML/MINUT E LAB eGFR(AA)(LOINC ) eGFR(AA) >60 60 - 999 ML/MINUT E Result Comment: ACCORDING TO THE NATIONAL KIDNEY DISEASE EDUCATION PROGRAM(NKDE), A NORMAL eGFR IS A VALUE GREATER THAN OR EQUAL TO 60 ML/MIN/1.73 SQ METERS. CHRONIC KIDNEY DISEASE: <60mL/MIN/1.73 SQ METERS KIDNEY FAILURE: <15mL/MIN/1.73 SQ METERS THIS TEST SHOULD ONLY BE USED FOR PATIENTS 18 YEARS OF AGE AND OLDER. Performed By: #### [id number] ## ## [place] [id number] LACTATE Collected: 1:11 AM Status: F Source: [facility] TYPE CODE TESTS RESULT OUT OF RANGE REFERENCE UNITS LAB LACTATE(LOINC) LACTATE 1.1 0.4 - 2.0 mmol/L Performed By: #### [id number] ## ## [place] [id number] URINE Collected: 11/06/2024 1:11 AM Status : F Source: [facility] TYPE CODE TESTS RESULT OUT OF RANGE REFERENCE UNITS LAB UR(LOINC) UR NEGATIVE NEGATIVE LAB INTERNAL QC(LOINC) INTERNAL QC PASS LAB EXTERNAL QC DONE?(LOINC) EXTERNAL QC DONE? YES Performed By: #### [id number] ## ## [place] [id number] URINALYSIS Collected: 1:11 AM Status: F Source: [facility] TYPE CODE TESTS RESULT OUT OF RANGE REFERENCE UNITS LAB URINALYSIS(ISAIAH NC) URINALYSIS Result Comment: URINALYSIS LAB Specimen Type(LOINC) Specimen Type R LAB Color(LOINC) Color orange NORMAL: YELLOW LAB Clarity(LOINC) Clarity CLOUDY Abnormal RAJIV L: CLEAR LAB ph(LOINC) ph 7 NORMAL: 5.0-8.0 Result Comment: UNABLE TO PE RFORM PROTEIN LAB Glucose(LOINC) Glucose NORM RAJIV L: NORMAL LAB Ketone(LOINC) Ketone NEG NORMAL : NEGATIVE LAB Bilirubin(LOIN C) Bilirubin NEG NORMAL: NEGATIVE LAB Blood(LOINC) Blood 250 Abnormal NORMAL: NEGATIVE LAB Urobilinog(ISAIAH NC) Urobilinog NORM NORMAL: NORMAL LAB Sp Stem(LOINC) Sp Stem 1.010 NORMAL: 1.010-1.030 LAB Nitrite(LOINC) Nitrite POS RAJIV L: NEGATIVE LAB Leukocytes(ISAIAH NC) Leukocytes 500 Abnormal NORMAL: NEGATIVE LAB Microscopic(LO INC) Microscopic SEE BELOW Result Comment: MICROSCOPIC LAB Wbc(LOINC) Wbc >50 0-5/hpf LAB Rbc(LOINC) Rbc TNTC 0-3/hpf LAB Casts(LOINC) Casts NONE LAB Crystals(LOINC ) Crystals NONE LAB Amorphous(LOIN C) Amorphous NONE LAB Bacteria(LOINC ) Bacteria 4+ LAB Epi Cells(LOINC) Epi Cells NONE LAB Mucous(LOINC) Mucous NONE LAB Yeast(LOINC) Yeast NONE Performed By: #### [id number] ## ## [facility],[address] [place] [address] URINE CULTURE [CCL] Observed: 11/06/2024 1:11 AM Status: F Source: [facility] URCUL See Results Below See Below CULTURE, URINE MIXED MICROBIOTA >=100,000 CFU/ml Mixed microbiota No further workup. Mixed microbiota can be due to???urine???contamination with s SOURCE: Urine (Nonspecific) [place] [address] Joao Alvarenga III, M.D. [id number] SEND TO IC NO Performed By: #### [id number] ## ## [facility],[address] [place] [address] CULTURE BLOOD [VANESSA] Observed: 2024 1:11 AM Status: F Source: [facility] CULTURE BLOOD [[place]] _BLOOD CULTURE_ [facility] REPORTS AND ATTACHMENTS FOR SCANNED REPORT 11/[email or web address] Performed By: #### [id number] ## ## [facility],[address] [place] [id number] [facility] Observed: 11/06/2024 1:11 AM Status: F Source: [facility] . MICRO - Microbiology PROCEDURE: Blood Culture (bacterial) [...] This test was performed at: [facility], [address] [place] [address], [facility] , ED PHYSICIAN CLINICAL REPORT Observed: 11/06/2024 12:29 AM Status: F Source: [facility] Narrative Physician Clinical Narrative [address] [address] [id number] 11/06/2024 Patient: TOR BERMAN Sex: Female : 1990 Age: 33y Measurements Wt: 50.8 kg, Ht/Aden: 64.0 in, BMI: 19.22 Initial Vital Sign Measured Time BP MAP HR RR O2Sat ETCO2 Temp Pain GCS RTS 00:33 11/06/2024 126/85 99 111 Time Seen: 00:47 11/06/2024. Historian- patient. HISTORY OF PRESENT ILLNESS Chief Complaint: ABDOMINAL PAIN. Additional history - ( patient is a 33-year-old female, history of left-sided nephrostomy in place, over 5 years ago. History of cervical cancer as well. She presents to the ED with complaint of generalized abdominal pain, and blood in her left nephrostomy bag. Noticed blood today. She has been having some abdominal pain over the last couple of days. Denies any nausea or vomiting. Denies diarrhea. Denies chest pain, shortness of breath. Denies any other concerns at this time.). REVIEW OF SYSTEMS Negative review of system unless otherwise mentioned in HPI. Status: Unknown. PAST HISTORY Cervical Cancer 1 of 13 Narrative Chronic kidney disease (disorder) nephrostomy Surgeries: Percutaneous insertion of nephrostomy tube: (every 6 weeks) Medications: Lexapro 20 mg tablet: 20 mg once a day every AM. lorazepam 1 mg tablet: 1 mg four times a day as needed. ondansetron HCl 4 mg tablet: 4 mg four times a day as needed. oxycodone 5 mg tablet: 10 mg every 8 hours as needed. Allergies: Haldol Penicillins SOCIAL HISTORY Smoker- current status unknown. ADDITIONAL NOTES The nursing notes have been reviewed. PHYSICAL EXAM Vital Signs: Have been reviewed. Appearance: Alert. No acute distress. Eyes: Eyes normal inspection. ENT: Ears normal. Neck: Normal inspection. CVS: Heart sounds normal. Pulses normal. Respiratory: No respiratory distress. Breath sounds normal. Abdomen: Soft. No mass. Back: Normal inspection. Skin: Normal skin color. Extremities: Extremities exhibit normal ROM. Neuro: Oriented X 3. 2 of 13 Narrative LABS, X-RAYS, AND EKG Laboratory Tests: CBC + DIFF Final BINA: 11/06/2024 01:11:00 EST MsgRcvd: 11/06/2024 01:56 EST Lab Test Result Reference Status Received Comments 11/06/2024 01:56 CBC-COMPLETE CBC + DIFF Final EST BLOOD COUNT 11/06/2024 01:56 WBC 10.1 x 10/UL 4.5 - 10.8 Final EST 11/06/2024 01:56 RBC 4.15 x 10/UL 4.10 - 5.30 Final EST 11/06/2024 01:56 HEMOGLOBIN 13.9 g/dl 12.0 - 16.0 Final EST 11/06/2024 01:56 HEMATOCRIT 40.4 % 34.0 - 46.0 Final EST 11/06/2024 01:56 MCV 97 fl 80 - 99 Final EST 11/06/2024 01:56 MCH 33 pg 27 - 33 Final EST 11/06/2024 01:56 MCHC 34 X10 3 32 - 36 Final EST 11/06/2024 01:56 RDW/CV 14.8 % 12.0 - 15.6 Final EST 457 x10/UL 11/06/2024 01:56 PLATELET 150 - 450 Final Above high normal EST Narrative 11/06/2024 01:56 AUTOMATED MPV 6.6 fl 6.6 - 10.5 Final EST DIFFERENTIAL 11/06/2024 01:56 NEUT % 63.8 % 46.0 - 76.0 Final EST 11/06/2024 01:56 LYMPH % 25.3 % 20.0 - 45.0 Final EST 11/06/2024 01:56 MONOS % 9.0 % 0.0 - 10.0 Final EST 11/06/2024 01:56 EO % 1.5 % 0.0 - 7.0 Final EST 11/06/2024 01:56 BASO % 0.3 % 0.0 - 2.0 Final EST 11/06/2024 01:56 Lymph # 2.56 x10/UL 0.80 - 2.80 Final EST 11/06/2024 01:56 Neut # 6.45 x10/UL 1.50 - 7.10 Final EST 11/06/2024 01:56 Green # 0.91 x10/UL 0.20 - 1.00 Final EST 11/06/2024 01:56 EO # 0.15 x10/UL 0.00 - 0.50 Final EST 11/06/2024 01:56 Baso # 0.03 x10/UL 0.00 - 0.10 Final EST 11/06/2024 01:56 MANUAL DIFF N/A New Order EST 11/06/2024 01:56 MORPHOLOGY N/A New Order EST CMP with eGFR Final Narrative BINA: 11/06/2024 01:11:00 EST MsgRcvd: 11/06/2024 02:30 EST Lab Test Result Reference Status Received Comments COMPREHENSIVE 11/06/2024 CMP with eGFR Final METABOLIC 02:30 EST PANEL 11/06/2024 SODIUM 141 mmol/l 136 - 145 Final 02:30 EST 11/06/2024 POTASSIUM 3.9 mmol/L 3.5 - 5.1 Final 02:30 EST 11/06/2024 CHLORIDE 101 mmol/L 98 - 107 Final 02:30 EST 11/06/2024 CO2 28.6 mmol/L 21.0 - 32.0 Final 02:30 EST 11/06/2024 GLUCOSE 79 mg/dl 74 - 106 Final 02:30 EST 11/06/2024 BUN 7 mg/dl 7 - 18 Final 02:30 EST 1.08 mg/dl 11/06/2024 CREATININE Above high 0.55 - 1.02 Final 02:30 EST normal 12 U/L 11/06/2024 AST/SGOT 13 - 39 Final Below low normal 02:30 EST 11/06/2024 ALK PHOS 81 U/L 46 - 116 Final 02:30 EST 11/06/2024 CALCIUM 9.1 mg/dl 8.5 - 10.1 Final 02:30 EST TOTAL 11/06/2024 7.4 g/dl 6.4 - 8.2 Final PROTEIN 02:30 EST 5 of 13 Narrative 11/06/2024 ALBUMIN 3.9 g/dL 3.4 - 5.0 Final 02:30 EST 11/06/2024 GLOBULIN 3.5 G/DL 1.5 - 3.8 Final 02:30 EST 11/06/2024 A/G RATIO 1.1 0.9 - 1.6 Final 02:30 EST 11/06/2024 TOTAL BILI 0.5 mg/dl 0.2 - 1.0 Final 02:30 EST 11/06/2024 B/C RATIO 6 ratio 0 - 30 Final 02:30 EST 13 U/L 11/06/2024 ALT/SGPT 16 - 63 Final Below low normal 02:30 EST 11/06/2024 ANION GAP 15 mmol/L 10 - 20 Final 02:30 EST 11/06/2024 AGE 33 years Final 02:30 EST 58 ML/MINUTE 11/06/2024 eGFR 60 - 999 Final Below low normal 02:30 EST 6 of 13 Narrative ACCORDING TO THE NATIONAL KIDNEY DISEASE EDUCATION PROGRAM(NKDE), A NORMAL eGFR IS A VALUE GREATER THAN OR EQUAL TO 60 ML/MIN/1.73 SQ METERS. 11/06/2024 CHRONIC KIDNEY eGFR(AA) >60 ML/MINUTE 60 - 999 Final 02:30 EST DISEASE: <60mL/MIN/1.73 SQ METERS KIDNEY FAILURE: <15mL/MIN/1.73 SQ METERS THIS TEST SHOULD ONLY BE USED FOR PATIENTS 18 YEARS OF AGE AND OLDER. LACTATE Final BINA: 11/06/2024 01:11:00 EST MsgRcvd: 11/06/2024 02:33 EST Lab Test Result Reference Status Received Comments 11/06/2024 02:33 LACTATE 1.1 mmol/L 0.4 - 2.0 Final EST URINE 7 of 13 Narrative Final BINA: 11/06/2024 01:11:00 EST MsgRcvd: 11/06/2024 02:19 EST Lab Test Result Reference Status Received Comments 11/06/2024 02:19 NEGATIVE NEGATIVE Final UR EST 11/06/2024 02:19 INTERNAL QC PASS Final EST EXTERNAL QC 11/06/2024 02:19 YES Final DONE? EST TROPONIN Final BINA: 11/06/2024 01:11:00 EST MsgRcvd: 11/06/2024 02:31 EST Lab Test Result Reference Status Received Comments 11/06/2024 02:31 HS TROPONIN <4.0 pg/mL 0.0 - 51.4 Final EST URINALYSIS Final BINA: 11/06/2024 01:11:00 EST MsgRcvd: 11/06/2024 03:58 EST Lab Test Result Reference Status Received Comments 11/06/2024 03:58 URINALYSIS Final URINALYSIS EST 11/06/2024 03:58 Specimen Type R New Order EST NORMAL: 11/06/2024 03:58 Color orange Final YELLOW EST CLOUDY NORMAL: 11/06/2024 03:58 Clarity Final Abnormal CLEAR EST 8 of 13 Narrative UNABLE TO NORMAL: 11/06/2024 03:58 ph 7 Final PERFORM 5.0-8.0 EST PROTEIN NORMAL: 11/06/2024 03:58 Glucose NORM Final NORMAL EST NORMAL: 11/06/2024 03:58 Ketone NEG Final NEGATIVE EST NORMAL: 11/06/2024 03:58 Bilirubin NEG Final NEGATIVE EST 250 NORMAL: 11/06/2024 03:58 Blood Final Abnormal NEGATIVE EST NORMAL: 11/06/2024 03:58 Urobilinog NORM Final NORMAL EST NORMAL: 11/06/2024 03:58 Sp Stem 1.010 Final 1.010-1.030 EST NORMAL: 11/06/2024 03:58 Nitrite POS Final NEGATIVE EST 500 NORMAL: 11/06/2024 03:58 Leukocytes Final Abnormal NEGATIVE EST 11/06/2024 03:58 Microscopic SEE BELOW Final MICROSCOPIC EST 11/06/2024 03:58 Wbc >50 0-5/hpf Final EST 11/06/2024 03:58 Rbc TNTC 0-3/hpf Final EST 11/06/2024 03:58 Casts NONE Final EST 9 of 13 Narrative 11/06/2024 03:58 Crystals NONE Final EST 11/06/2024 03:58 Amorphous NONE Final EST 11/06/2024 03:58 Bacteria 4+ Final EST 11/06/2024 03:58 Epi Cells NONE Final EST 11/06/2024 03:58 Mucous NONE Final EST 11/06/2024 03:58 Yeast NONE Final EST URINALYSIS Final BINA: 11/06/2024 02:25:00 EST MsgRcvd: 11/06/2024 04:02 EST Lab Test Result Reference Status Received Comments 11/06/2024 04:02 URINALYSIS Final URINALYSIS EST 11/06/2024 04:02 Specimen Type R New Order EST NORMAL: 11/06/2024 04:02 Color yellow Final YELLOW EST SL. CLOUDY NORMAL: 11/06/2024 04:02 Clarity Final Abnormal CLEAR EST UNABLE TO NORMAL: 11/06/2024 04:02 ph 6 Final PERFORM 5.0-8.0 EST PROTEIN 10 of 13 Narrative NORMAL: 11/06/2024 04:02 Glucose NORM Final NORMAL EST NORMAL: 11/06/2024 04:02 Ketone NEG Final NEGATIVE EST NORMAL: 11/06/2024 04:02 Bilirubin NEG Final NEGATIVE EST 10 NORMAL: 11/06/2024 04:02 Blood Final Abnormal NEGATIVE EST NORMAL: 11/06/2024 04:02 Urobilinog NORM Final NORMAL EST NORMAL: 11/06/2024 04:02 Sp Stem 1.020 Final 1.010-1.030 EST NORMAL: 11/06/2024 04:02 Nitrite NEG Final NEGATIVE EST NORMAL: 11/06/2024 04:02 Leukocytes NEG Final NEGATIVE EST 11/06/2024 04:02 Microscopic SEE BELOW Final MICROSCOPIC EST 11/06/2024 04:02 Wbc NONE 0-5/hpf Final EST 11/06/2024 04:02 Rbc 0-5 0-3/hpf Final EST 11/06/2024 04:02 Casts NONE Final EST 11/06/2024 04:02 Crystals NONE Final EST 11/06/2024 04:02 Amorphous NONE Final EST 11 of 13 Narrative 11/06/2024 04:02 Bacteria TRACE Final EST 11/06/2024 04:02 Epi Cells OCC Final EST 11/06/2024 04:02 Mucous NONE Final EST 11/06/2024 04:02 Yeast NONE Final EST PROGRESS AND PROCEDURES MEDICAL DECISION MAKING: (On exam, patient is awake, alert and oriented x4. She is not in any acute respiratory distress. Patient was initially tachycardic, she did have some mild blood in her nephrostomy bag as well, no tenderness around nephrostomy sites, abdomen was soft and nontender. Given concern of tachycardia, with suspected infection of urinary tract infection, patient was made a sepsis alert. She was given a total of 1600 mL of IV fluids, COVID empirically with ceftriaxone as well. Indicated labs including CBC and CMP were obtained which were grossly unremarkable. Patient did not have leukocytosis. Lactic acid was 1.1. Troponin high sensitivity was negative. Two urinalysis sample was obtained, 1 from the nephrostomy bag and 1 from the urethra. She did of evidence of urinary tract infection, with 4+ bacteria, positive nitrates 10 WBC more than 50. CT abdomen and pelvis is obtained as well which was suggestive of cystitis. Given these findings, prescription for Keflex was written for patient to go home with. On re-evaluation, improved vitals at this time, patient's heart rate is now 70s. She is normotensive. Not currently complaining of any pain. Patient will be discharged at this time to follow up with PCP. She has an appointment with the primary care physician on the of this month, and with the surgeon on the Disposition: Discharge patient Impression: 1. Cystitis). Disposition: Condition: good and stable. Discharged in good and improved condition. Discharge decision based on the following: patient's condition is stable. CLINICAL IMPRESSION Acute urinary tract infection with cystitis and hematuria. 12 of 13 Narrative DISCHARGE INSTRUCTIONS Follow-up: Follow up with your doctor. Please follow-up with your primary care physician in the next 1-2 days. (Electronically signed by Korina Aguilar M.D. 11/06/24 04:46:56 EST) Generated by [facility] 13 of 13 ED VITALS FLOW SHEET Observed: 12:29 AM Status: F Source: [facility] Vitals Vital Sign Flow Sheet [place] [id number] [facility] [place] [address] [id number] 11/06/2024 Patient: TOR BERMAN Sex: Female : 1990 Age: 33y Measurements Wt: 50.8 kg, Ht/Aden: 64.0 in, BMI: 19.22 Measured Time BP MAP HR RR O2Sat ETCO2 Temp Pain GCS RTS 05:01 11/06/2024 136/95 108 74 04:35 11/06/2024 69 99% 04:30 11/06/2024 74 98% 04:25 11/06/2024 70 99% 04:20 11/06/2024 74 97% 04:15 11/06/2024 78 96% 04:10 11/06/2024 80 96% 04:05 11/06/2024 78 96% 04:00 11/06/2024 79 96% 03:55 11/06/2024 83 96% 03:50 11/06/2024 79 96% 03:45 11/06/2024 83 97% 03:40 11/06/2024 84 98% 02:35 11/06/2024 83 100% 02:30 11/06/2024 82 100% 1 of 3 Vitals Measured Time BP MAP HR RR O2Sat ETCO2 Temp Pain GCS RTS 02:25 11/06/2024 82 100% 02:20 11/06/2024 85 99% 02:15 11/06/2024 81 100% 02:10 11/06/2024 86 100% 02:05 11/06/2024 91 100% 02:00 11/06/2024 86 99% 01:55 11/06/2024 95 98% 01:50 11/06/2024 96 99% 01:45 11/06/2024 100 99% 01:40 11/06/2024 99 99% 01:25 11/06/2024 116 99% 01:20 11/06/2024 111 98% 01:18 11/06/2024 106/77 84 108 01:15 11/06/2024 110 99% 01:10 11/06/2024 110 98% 01:05 11/06/2024 99 100% 01:03 11/06/2024 120/84 92 105 01:00 11/06/2024 109 100% 00:55 11/06/2024 105 99% 00:50 11/06/2024 111 98% 00:48 11/06/2024 114/76 88 108 00:45 11/06/2024 120 100% 00:43 11/06/2024 98.8 F 00:43 11/06/2024 20 8 00:40 11/06/2024 124 99% 2 of 3 Vitals Measured Time BP MAP HR RR O2Sat ETCO2 Temp Pain GCS RTS 00:35 11/06/2024 116 100% 00:33 11/06/2024 126/85 99 111 3 of 3 ED VISIT SUMMARY Observed: 11/06/2024 12:29 AM Status: F Source: [facility] Visit Overview Visit Overview [address] [address] [id number] 11/06/2024 Patient: TOR BERMAN Sex: Female : 1990 Age: 33y 11/06/2024 07:52 AM EST ED Arrival:00:29 11/06/2024 EST Status: Recent Travel:no Language:eng Adv Directive: Isolation Status: Ethnicity:N Fall Risk:no risk Infectious Disease Exposure:no Measurements:5'4" / 162.6 Self-Harm Status:risk Sepsis Screen:negative cm 112.0 lb / 50.8 kg Chief Complaint:LEFT-SIDED FLANK PAIN, (Vanessa Matthews), and (L flank pain, blood in nephrostomy) ALLERGIES Haldol Penicillins HOME MEDICATIONS Lexapro 20 mg tablet: 20 mg once a day every AM. lorazepam 1 mg tablet: 1 mg four times a day as needed. ondansetron HCl 4 mg tablet: 4 mg four times a day as needed. oxycodone 5 mg tablet: 10 mg every 8 hours as needed. 1 3 Visit Overview PAST MEDICAL HISTORY / PROBLEMS Cervical Cancer Chronic kidney disease (disorder) Last normal menstrual period- march 2020 last period PAST SURGICAL HISTORY Percutaneous insertion of nephrostomy tube. every 6 weeks SOCIAL HISTORY Nutritional assessment: No deficits Smoking status: Yes Alcohol use: No Drug use: Yes ED COURSE MEDICATIONS GIVEN IN EMERGENCY DEPARTMENT 01:51 11/06/24 IV NS 0.9 % 1000 mL 999 mL/hr cefTRIAXone (Rocephin) IVPB 1gm/50ml NS 1 g diluted in sodium chloride IVPB 0.9 % 01:52 11/06/24 Minibag+ 50 mL 100 mL/hr 03:36 11/06/24 IV NS 0.9 % 600 mL 999 mL/hr 03:37 11/06/24 Zofran IVP 4 mg 03:37 11/06/24 HYDROmorphone (Dilaudid) IVP 0.5 mg IV SITE INFORMATION INTAKE OUTPUT REASSESMENT (most recent) 01:09 11/06/24. Ambulatory to room. GENERAL / NEURO / PSYCH: Alert. Oriented X 4. Appears in no acute distress. HEENT: Mucous membranes are pink. RESPIRATORY: Respirations not labored. Breath sounds within normal limits. CVS: Cardiac rhythm: sinus tachycardia. Capillary refill less than 2 seconds. GI / : Abdomen soft and nontender. Bowel sounds within normal limits. Urinary catheter in place on arrival returning bloody urine (left nephrostomy tube). The patient has had hematuria. No vaginal bleeding. No vaginal discharge. SKIN: Skin is warm and dry. 2 of 3 Visit Overview VITAL SIGNS First Vitals Last Vitals Temp 00:33 11/06/24 Temp 05:01 11/06/24 BP 00:33 11/06/24 126/85 BP 05:01 11/06/24 136/95 HR 00:11/06/24 111 HR 05:01 11/06/24 74 RR 00:33 11/06/24 RR 05:01 11/06/24 O2 Sat 00:11/06/24 O2 Sat 05:01 11/06/24 Pain 00:33 11/06/24 Pain 05:01 11/06/24 ETCO2 00:11/06/24 ETCO2 05:01 11/06/24 GCS 00:33 11/06/24 GCS 05:01 11/06/24 RTS 00:33 11/06/24 RTS 05:01 11/06/24 PROCEDURES NURSING INTERVENTIONS LABS / STUDIES LABS / STUDIES ORDERED Blood Culture [Vanessa] # 1 Blood Culture [Vanessa] # 2 CBC w Diff Chest 1V CMP CT ABD/PEL w Cont Culture Other [VANESSA] EKG - ED Lactate, Serum Troponin-I Urinalysis Urinalysis Urine Culture [CCL] Urine - HCG CLINICAL IMPRESSION ACUTE URINARY TRACT INFECTION WITH CYSTITIS AND HEMATURIA 3 of 3 ED ORDER SHEET (CPOE ONLY) Observed: 02/2025 12:29 AM Status: F Source: [facility] Order Sheet Order Sheet [address] [address] [id number] 11/06/2024 Patient: TOR BERMAN Sex: Female : 1990 Age: 33y MEASUREMENTS: Wt: 50.8 kg, Ht/Aden: 64.0 in, BMI: 19.22 ALLERGIES: Haldol, Penicillins MEDICATION/IV/DRIP/FLUID ORDERS Order Description Priority Entered Acknowledged Completed IV NS 0.9 %1000 mL at 999 01:04 11/06/2024 01:07 01:52 mL/hr (NOW x1) Korina Aguilar M.D. 11/06/2024 11/06/2024 Yohana Araya, R.N. IV NS 0.9 %600 mL at 999 mL/hr 01:05 11/06/2024 01:07 03:37 (NOW x1) Korina Aguilar M.D. 11/06/2024 11/06/2024 Yohana Araya, R.N. Reason for ordering with alerts: Benefits outweigh risks --01:05 11/06/2024 Korina Aguilar M.D. cefTRIAXone (Rocephin) IVPB 01:12 11/06/2024 01:23 01:52 1gm/50ml NS1 g diluted in Korina Aguilar M.D. 11/06/2024 11/06/2024 sodium chloride IVPB 0.9 % Tadeo Borges Minibag+ 50 mL at 100 mL/hr Yohana Tejeda R.N. (NOW x1) Reason for ordering with alerts: Benefits outweigh risks --01:12 11/06/2024 Korina Aguilar M.D. HYDROmorphone (Dilaudid) 02:19 11/06/2024 03:30 03:38 1 of 4 Order Sheet IVP0.5 mg (NOW x1, HIGH Korina Aguilar M.D. 11/06/2024 11/06/2024 ALERT MEDICATION) Yohana Araya R.N. Reason for ordering with alerts: Benefits outweigh risks --02:19 11/06/2024 Korina Aguilar M.D. Zofran IVP4 mg (NOW x1) 02:19 11/06/2024 03:30 03:37 Korina Aguilar M.D. 11/06/2024 11/06/2024 Yohana Araya R.N. Reason for ordering with alerts: Benefits outweigh risks --02:19 11/06/2024 Korina Aguilar M.D. LAB ORDERS Order Description Priority Entered Acknowledged Collected Completed EKG - ED Stat Stat 01:03 11/06/2024 01:06 11/06/2024 03:30 11/06/2024 Tadeo Samano M.D., R.N. [place], R.N. Troponin-I Stat Stat 01:03 11/06/2024 01:06 11/06/2024 01:22 11/06/2024 Tadeo Samano M.D. [place], R.N. E.MAprilT.-P. Lactate, Serum Stat Stat 01:03 11/06/2024 01:06 11/06/2024 01:22 11/06/2024 Tadeo Samano M.D. [place], R.N. E.M.TApril-P. CBC w Diff Stat Stat 01:03 11/06/2024 01:05 11/06/2024 01:22 11/06/2024 Tadeo Samano M.D. [place], R.N. E.M.TApril-P. CMP Stat Stat 01:03 11/06/2024 01:06 11/06/2024 01:22 11/06/2024 Tadeo Samano M.D. [place], R.N. E.M.T.-P. 2 of 4 Order Sheet Blood Culture Stat 01:03 11/06/2024 01:05 11/06/2024 01:22 11/06/2024 [Vanessa] # 1 Stat Tadeo Samano M.D. [place], R.N. E.M.T.-P. Blood Culture Stat 01:03 11/06/2024 01:05 11/06/2024 01:56 11/06/2024 [Vanessa] # 2 Stat Tadeo Samano M.D., R.N. [place], R.N. Urinalysis Stat Stat 01:03 11/06/2024 01:06 11/06/2024 01:22 11/06/2024 Tadeo Samano M.D. [place], R.N. E.M.T.-P. Urine Culture [CCL] Stat Stat 01:03 11/06/2024 01:06 11/06/2024 01:22 11/06/2024 Tadeo Samano M.D. [place], R.N. E.M.T.-P. Culture Other Stat 01:03 11/06/2024 01:06 11/06/2024 01:57 11/06/2024 [VANESSA] Stat Tadeo Samano M.D., R.N. [place], R.N. Urinalysis Stat Stat 01:07 11/06/2024 01:08 11/06/2024 01:22 11/06/2024 Tadeo Samano M.D. [place], R.N. E.M.T.-P. Urine - HCG Stat 01:16 11/06/2024 01:22 11/06/2024 Stat Pranav Samano M.D. E.M.T.-P. DIAGNOSTIC STUDY ORDERS 3 of 4 Order Sheet Order Description Priority Entered Acknowledged Completed Chest 1V Stat Stat 01:03 11/06/2024 01:06 02:09 Korina Aguilar M.D. 11/06/2024 11/06/2024 Yohana Araya R.N. Order Comments: 01:03 11/06/2024: (sepsis? tachycardic hematuria); Status: Unknown. Korina Aguilar M.D. Reason for Study: Pneumonia CT ABD/PEL w Cont Stat Stat 01:07 11/06/2024 01:08 02:09 Korina Aguilar M.D. 11/06/2024 11/06/2024 Yohana Araya, RAprilNApril Order Comments: 01:07 11/06/2024: (left sided nephrostomy. hematuia) Korina Aguilar M.D. Reason for Study: Abdominal Pain STAFF ORDERS Order Description Priority Entered Acknowledged Collected Completed [Electronically signed by Korina Aguilar M.D. (11/06/2024 04:46 EST)] 4 of 4 ED NURSES CLINICAL NOTE Observed: 2024 12:29 AM Status: F Source: [facility] Nurse Narrative Nurse Clinical [address] [address] [phone] 11/06/2024 Patient: TOR BERMAN Sex: Female : 1990 Age: 33y Disposition: Discharge to Home Disposition Decision Time: 04:47 11/06/2024 Departure Time: 05:02 11/06/2024 TRIAGE Arrived by private vehicle. Historian: patient. Primary physician (Vanessa Matthews). Triage time: 00:30 11/06/2024. Acuity: LEVEL 3. Chief Complaint: LEFT-SIDED FLANK PAIN (L flank pain, blood in nephrostomy). SEPSIS SCREEN: NEGATIVE. SIRS criteria negative. Possible sources of infection: acute abdomen. -- 00:42 11/06/24 SUMEET Farah RAprilNApril 00:33 11/06/24. BP: 126/85 MAP: 99 mmHg. HR: 111 bpm. -- 00:43 11/06/24 SUMEET Farah R.N. 00:35 11/06/24. HR: 116 bpm. O2 saturation: 100%. -- 00:11/06/24 SUMEET Farah R.N. 00:11/06/24. RR: 20. Pain level now 8/10. -- 00:11/06/24 SUMEET Farah RAprilNApril 00:11/06/24. Temperature: 98.8 F. -- 00:11/06/24 SUMEET Farah RAprilN. Measurements: 00:42 11/06/24 Wt: 50.8 kg, Ht/Adne: 64.0 in, BMI: 19.22 -- 00:11/06/24 SUMEET Farah RAprilN. Medications: Lexapro 20 mg tablet: 20 mg once a day every AM. -- 00:11/06/24 SUMEET Farah R.N. ondansetron HCl 4 mg tablet: 4 mg four times a day as needed. -- 00:11/06/24 SUMEET Farha RAprilNApril lorazepam 1 mg tablet: 1 mg four times a day as needed. -- 00:11/06/24 SUMEET Farah R.N. 1 of 5 Nurse Narrative oxycodone 5 mg tablet: 10 mg every 8 hours as needed. -- 00:11/06/24 SUMEET Farah R.N. Allergies: Haldol -- 00:11/06/24 SUMEET Farah R.N. Penicillins -- 00:11/06/24 SUMEET Farah R.N. Problems: Cervical Cancer -- 00:39 11/06/24 SUMEET Farah R.N. Chronic kidney disease (disorder) -- 00:39 11/06/24 SUMEET Farah R.N. nephrostomy -- 00:40 11/06/24 SUMEET Farah R.N. ADDITIONAL SURGERIES: Percutaneous insertion of nephrostomy tube. every 6 weeks -- 00:40 11/06/24 SUMEET Farah R.N. History 00:30 11/06/24. SOCIAL HX: Light tobacco smoker- less than 1/2 a pack per day. Drug use: marijuana. (daily thc). No alcohol use. The patient has not traveled outside the [place] Infectious disease exposure: No infectious disease exposure. ABUSE ASSESSMENT: The patient answered "yes" to the question(s) "Do you feel safe in your home?" and "no" to the question(s) "Are you afraid to go home?". SELF HARM ASSESSMENT: Self harm assessment was performed. The patient answered no to the question(s) "Have you recently felt down, depressed, or hopeless?" and "Do you have thoughts of harming or killing yourself?". NUTRITIONAL RISK ASSESSMENT: The nutritional risk assessment revealed no deficiencies. FALL RISK ASSESSMENT: Fall risk assessment completed. No risk factors identified. -- 00:42 11/06/24 SUMEET Farah R.N. 00:44 11/06/24. PAST MEDICAL HX: Last normal menstrual period- march 2020 last period. -- 00:44 11/06/24 SUMEET Farah R.N. 2 of 5 Nurse Narrative Interventions 00:30 11/06/24. Identification band on patient. -- 00:42 11/06/24 SUMEET Farah R.N. PHYSICAL ASSESSMENT 01:03 11/06/24. BP: 120/84 MAP: 92 mmHg. HR: 105 bpm. -- 01:34 11/06/24 SUMEET Tejeda R.N. 01:05 11/06/24. HR: 99 bpm. O2 saturation: 100%. -- 01:34 11/06/24 SUMEET Tejeda R.N. 01:11/06/24. Ambulatory to room. GENERAL / NEURO / PSYCH: Alert. Oriented X 4. Appears in no acute distress. HEENT: Mucous membranes are pink. RESPIRATORY: Respirations not labored. Breath sounds within normal limits. CVS: Cardiac rhythm: sinus tachycardia. Capillary refill less than 2 seconds. GI / : Abdomen soft and nontender. Bowel sounds within normal limits. Urinary catheter in place on arrival returning bloody urine (left nephrostomy tube). The patient has had hematuria. No vaginal bleeding. No vaginal discharge. SKIN: Skin is warm and dry. -- 01:34 11/06/24 SUMEET Tejeda R.N. NURSING PROGRESS NOTES 01:11 11/06/24. Site #1 started via IV in the right antecubital space with a 20g angiocath with aseptic technique and good blood return; 1 attempt. Blood drawn: rainbow set and arriola tube(s) and cultures x 1. Labeled in the presence of the patient and sent to the lab. Saline lock flushed with 5 mL saline. -- 01:11/06/24 Anselmo Fontanez-P. 01:15 11/06/24. Patient ID band checked for patient name, birthdate and medical record number urine collected with return of red-colored cloudy urine; sample sent to lab for urinalysis. Specimen labeled in the presence of the patient (From Nephrostomy tube bag.). -- 01:11/06/24 Anselmo Fontanez- P. 01:51 11/06/24. IV NS 0.9 % 1000 mL started in bag#1 1000 mL at 999 mL/hr via Site# 1. Allergies verified and confirmed 5 rights. IV patency established. IV site checked: no pain, redness, or swelling. IV flushed thoroughly pre-medication administration. Information reviewed with patient including reason for taking this medication, signs of allergic reaction and precautions. Verbalizes understanding. -- 01:52 11/06/24 SUMEET Tejeda R.N. 01:52 11/06/24. cefTRIAXone (Rocephin) IVPB 1gm/50ml NS 1 g started at 100 mL/hr diluted in sodium chloride IVPB 0.9 % Minibag+ 50 mL via Site# 1. Allergies verified and confirmed 5 rights. Via IV pump. IV patency established. IV site checked: no pain, redness, or swelling. IV flushed thoroughly pre-medication administration. Information reviewed with patient including reason for taking this medication, signs of allergic reaction and precautions. Verbalizes understanding. -- 01:52 11/06/24 SUMEET Tejeda R.N. 3 of 5 Nurse Narrative 03:36 11/06/24. IV NS 0.9 % 600 mL started in bag#2 600 mL at 999 mL/hr via Site# 1. Allergies verified and confirmed 5 rights. IV patency established. IV site checked: no pain, redness, or swelling. IV flushed thoroughly pre-medication administration. Information reviewed with patient including reason for taking this medication, signs of allergic reaction and precautions. Verbalizes understanding. Medication Wastage: 400 mL wasted. -- 03:37 11/06/24 SUMEET Tejeda R.N. 03:37 11/06/24. Zofran IVP 4 mg given via Site# 1. Allergies verified and confirmed 5 rights. IV patency established. IV site checked: no pain, redness, or swelling. IV flushed thoroughly pre-medication administration. IVP given by nurse. Information reviewed with patient including reason for taking this medication, signs of allergic reaction and precautions. Verbalizes understanding. -- 03:37 11/06/24 Jamison ParksNApril 03:11/06/24. HYDROmorphone (Dilaudid) IVP 0.5 mg given via Site# 1. Allergies verified and confirmed 5 rights. IV patency established. IV site checked: no pain, redness, or swelling. IV flushed thoroughly pre-medication administration. IVP given by nurse. Information reviewed with patient including reason for taking this medication, signs of allergic reaction and precautions. Verbalizes understanding. Medication Wastage: 0.5 mg wasted. -- 03:38 11/06/24 SUMEET Tejeda R.N. DISPOSITION / DISCHARGE 02:52 11/06/24. IV NS 0.9 %: Medication Discontinued. bag #1 completed. Total amount infused: 1000 mL. IV patency established. IV site checked: no pain, redness, or swelling. IV flushed thoroughly post-medication administration. -- 05:03 11/06/24 EST Luzma Farah, R.N. 02:53 11/06/24. cefTRIAXone (Rocephin) IVPB 1gm/50ml NS: Medication Discontinued. IV completed. Total amount infused: 50 mL. IV patency established. IV site checked: no pain, redness, or swelling. IV flushed thoroughly post-medication administration. -- 05:03 11/06/24 SUMEET Farah, R.N. 04:35 11/06/24. HR: 69 bpm. O2 saturation: 99%. -- 05:04 11/06/24 EST Luzma Farah, R.N. 04:39 11/06/24. HYDROmorphone (Dilaudid) IVP: Medication Response. No adverse reaction. Pain is improving. -- 05:04 11/06/24 SUMEET Farah, R.N. 04:54 11/06/24. IV NS 0.9 %: Medication Discontinued. bag #2 stopped. Total amount infused: 200 mL. IV patency established. IV site checked: no pain, redness, or swelling. IV flushed thoroughly post-medication administration. -- 05:04 11/06/24 SUMEET Farah, R.N. 04:59 11/06/24. Site #1 removed upon discharge. Catheter intact. Pressure dressing applied. -- 05:04 11/06/24 SUMEET Farah, R.N. 05:01 11/06/24. BP: 136/95 MAP: 108 mmHg. HR: 74 bpm. -- 05:04 11/06/24 SUMEET Farah R.N. Departure time: 05:02 11/06/2024. Condition at departure: improved and stable. No learning barriers present. Discharge instructions provided and reviewed with the patient. Treatments reviewed. Reviewed referral to a primary care physician. Patient verbalized understanding. Written instructions provided in Palestinian. The patient was discharged home. The patient left ambulatory and via private vehicle. Patient driving. -- 05:05 11/06/24 SUMEET Farah R.NApril 4 of 5 Nurse Narrative (Electronically signed by Tadeo Tejeda R.N. 11/06/24 07:52:13 EST) Generated by [facility] 5 of 5 ED SUPER BILL Observed: 11/06/2024 12:29 AM Status: F Source: [address] [place] [address] [id number] 11/06/2024 Patient: TOR BERMAN Sex: Female : 1990 Age: 33y Item Facility Professional Category Description Code Code Quantity Fee Total Drugs Normal Saline 816660 2 $0.00 $0.00 1000cc (112135) Nurse/E/M EMERGENCY 872988 1 $0.00 $0.00 DEPARTMENT VISIT HIGH/URGENT SEVERITY (38509-47) Nurse/IV/IM/Infusions Drip/IVPB initial 428065 1 $0.00 $0.00 (75967) Nurse/IV/IM/Infusions Hydration 535088 1 $0.00 $0.00 additional hour (15111) Nurse/IV/IM/Infusions IVP additional 585541 2 $0.00 $0.00 push (22392) Grand Total $0.00 Providers Korina Aguilar M.D. 1 of 2 [facility] Chief Complaint ABDOMINAL PAIN. Principal Diagnosis Acute urinary tract infection with cystitis and hematuria. ICD-10 Codes N30.91: Cystitis, unspecified with hematuria 2 of 2 ED PHYSICIAN DISCHARGE REPORT Observed: 11/06/2024 12:29 AM Status: F Source: [facility] Discharge Instructions Discharge Summary [address] [address] [id number] 11/06/2024 Patient: TOR BERMAN Sex: Female : 1990 Age: 33y Thank you for visiting [facility]. You have been evaluated today by Korina Aguilar M.D. for the following condition(s): Principal Diagnosis Acute urinary tract infection with cystitis and hematuria. INSTRUCTIONS Follow-up: Follow up with your doctor. Please follow-up with your primary care physician in the next 1-2 days. You have been given the following additional information: Bladder Infection, Female (Adult) Patient Signature Facility Drug Safety Physician Date/Time 1 of 6 Discharge Instructions General Instructions with ExitWriter [place] [address] [place] [address] [phone] 11/06/2024 Patient: TOR BERMAN Sex: Female : 1990 Age: 33y Thank you for visiting [facility]. You have been evaluated today by Korina Aguilar M.D. for the following condition(s): Principal Diagnosis Acute urinary tract infection with cystitis and hematuria. INSTRUCTIONS Follow-up: Follow up with your doctor. Please follow-up with your primary care physician in the next 1-2 days. ADDITIONAL INFORMATION Bladder Infection, Female (Adult) 2 of 6 Discharge Instructions Urine normally doesn't have any germs (bacteria) in it. But bacteria can get into the urinary tract from the skin around the rectum. Or they can travel in the blood from other parts of the body. Once they are in your urinary tract, they can cause infection in these areas: The urethra (urethritis) The bladder (cystitis) The kidneys (pyelonephritis) The most common place for an infection is in the bladder. This is called a bladder infection. This is one of the most common infections in women. Most bladder infections are easily treated. They are not serious unless the infection spreads to the kidney. The terms bladder infection, UTI, and cystitis are often used to describe the same thing. But they are not always the same. Cystitis is an inflammation of the bladder. The most common cause of cystitis is an infection. Symptoms The infection causes inflammation in the urethra and bladder. This causes many of the symptoms. The most common symptoms of a bladder infection are: Pain or burning when urinating Having to urinate more often than normal Urgent need to urinate Only a small amount of urine comes out Blood in urine Belly (abdominal) discomfort. This is often in the lower belly above the pubic bone. Cloudy urine Strong- or bad-smelling urine Unable to urinate (urinary retention) Unable to hold urine in (urinary incontinence) Fever Loss of appetite Confusion (in older adults) 3 of 6 Discharge Instructions Causes Bladder infections are not contagious. You can't get one from someone else, from a toilet seat, or from sharing a bath. The most common cause of bladder infections is bacteria from the bowels. The bacteria get onto the skin around the opening of the urethra. From there, they can get into the urine. Then they travel up to the bladder, causing inflammation and infection. This often happens because of: Wiping incorrectly after urinating. Always wipe from front to back. Bowel incontinence Procedures such as having a catheter put in Older age Not emptying your bladder. This can give bacteria a chance to grow in your urine. Fluid loss (dehydration) Constipation Having sex Using a diaphragm for control Treatment Bladder infections are diagnosed by a urine test and urine culture. They are treated with antibiotics. They often clear up quickly without problems. Treatment helps prevent a more serious kidney infection. Medicines Medicines can help in the treatment of a bladder infection: Take antibiotics until they are used up, even if you feel better. It's important to finish them to make sure the infection has cleared. You can use acetaminophen or ibuprofen for pain, fever, or discomfort, unless another medicine was prescribed. If you have long-term (chronic) liver or kidney disease, talk with your healthcare provider before using these medicines. Also talk with your provider if you've ever had a stomach ulcer or GI (gastrointestinal) bleeding, or are taking blood-thinner medicines. If you are given phenazopydridine to reduce burning with urination, it will make your urine a bright orange color. This can stain clothing. 4 of 6 Discharge Instructions Care and prevention These self-care steps can help prevent future infections: Drink plenty of fluids. This helps to prevent dehydration and flush out your bladder. Do this unless you must restrict fluids for other health reasons, or your healthcare provider told you not to. Clean yourself correctly after going to the bathroom. Wipe from front to back after using the toilet. This helps prevent the spread of bacteria. Urinate more often. Don't try to hold urine in for a long time. Wear loose-fitting clothes and cotton underwear. Don't wear tight-fitting pants. Improve your diet and prevent constipation. Eat more fresh fruits and vegetables, and fiber. Eat less junk foods and fatty foods. Don't have sex until your symptoms are gone. Don't have caffeine, alcohol, and spicy foods. These can irritate your bladder. Urinate right after you have sex to flush out your bladder. If you use control pills and have frequent bladder infections, discuss it with your healthcare provider. Follow-up care Call your healthcare provider if all symptoms are not gone after 3 days of treatment. This is especially important if you have repeat infections. If a culture was done, you will be told if your treatment needs to be changed. If directed, you can call to find out the results. If X-rays were done, you will be told if the results will affect your treatment. Call 911 Call 911 if any of the following occur: Trouble breathing Hard to wake up or confusion Fainting (loss of consciousness) Fast heart rate 5 of 6 Discharge Instructions When to get medical advice Call your healthcare provider right away if any of these occur: Fever of 100.4F (38.0C) or higher, or as directed by your healthcare provider Symptoms are not better after 3 days of treatment Back or belly pain that gets worse Repeated vomiting, or unable to keep medicine down Weakness or dizziness Vaginal discharge Pain, redness, or swelling in the outer vaginal area (labia) 6 of 6 ED MED ADMINISTRATION DETAIL Observed: 0 11/06/2024 12:29 AM Status: F Source: [facility] Counter Top Maker Medication Administration Record [address] [place] [address] [id number] 11/06/2024 Patient: TOR BERMAN Sex: Female : 1990 Age: 33y MEASUREMENTS: Wt: 50.8 kg, Ht/Aden: 64.0 in, BMI: 19.22 ALLERGIES: Haldol, Penicillins Medication Ordered Medication Administration Date/Time IV NS 0.9 % 1000 01:51 11/06 IV NS 0.9 % 1000 mL started in bag#1 1000 mL at Started mL at 999 mL/hr 999 mL/hr via Site# 1. Allergies verified and confirmed 5 rights. IV 01:51 11/06/2024 (NOW x1) patency established. IV site checked: no pain, redness, or swelling. Tadeo Tejeda IV flushed thoroughly pre-medication administration. Information R.N. reviewed with patient including reason for taking this medication, Stopped signs of allergic reaction and precautions. Verbalizes 02:52 11/06/2024 understanding. - 01:52 Yohana Stock R.N. Scanned 02:11/06 Medication Discontinued: bag #1 completed. Total amount infused: 1000 mL. IV patency established. IV site checked: no pain, redness, or swelling. IV flushed thoroughly post-medication administration. - 05:03 Luzma Farah R.N. 1 of 3 Counter Top Maker Medication Ordered Medication Administration Date/Time IV NS 0.9 % 600 mL 03:36 11/06 IV NS 0.9 % 600 mL started in bag#2 600 mL at 999 Started at 999 mL/hr (NOW mL/hr via Site# 1. Allergies verified and confirmed 5 rights. IV 03:36 11/06/2024 x1) patency established. IV site checked: no pain, redness, or swelling. Tadeo Tejeda IV flushed thoroughly pre-medication administration. Information R.N. reviewed with patient including reason for taking this medication, Stopped signs of allergic reaction and precautions. Verbalizes 04:54 11/06/2024 understanding. Medication Wastage: 400 mL wasted. - 03:37 Yohana Melvin R.N. Scanned 04:54 11/06 Medication Discontinued: bag #2 stopped. Total amount infused: 200 mL. IV patency established. IV site checked: no pain, redness, or swelling. IV flushed thoroughly post-medication administration. - 05:04 Luzma Farah R.N. cefTRIAXone 01:52 11/06 cefTRIAXone (Rocephin) IVPB 1gm/50ml NS 1 g Started (Rocephin) IVPB started at 100 mL/hr diluted in sodium chloride IVPB 0.9 % 01:52 11/06/2024 1gm/50ml NS 1 g Minibag+ 50 mL via Site# 1. Allergies verified and confirmed 5 Tadeo Tejeda, diluted in sodium rights. Via IV pump. IV patency established. IV site checked: no R.N. chloride IVPB 0.9 % pain, redness, or swelling. IV flushed thoroughly pre- medication Stopped Minibag+ 50 mL at administration. Information reviewed with patient including reason 02:53 11/06/2024 100 mL/hr (NOW x1) for taking this medication, signs of allergic reaction and precautions. Luzma Farah R.N. Verbalizes understanding. - 01:52 Tadeo Tejeda R.N. Scanned 02:53 11/06 Medication Discontinued: IV completed. Total amount infused: 50 mL. IV patency established. IV site checked: no pain, redness, or swelling. IV flushed thoroughly post-medication administration. - 05:03 Luzma Farah R.N. 2 of 3 Counter Top Maker Medication Ordered Medication Administration Date/Time HYDROmorphone 03:37 11/06 HYDROmorphone (Dilaudid) IVP 0.5 mg given via Given (Dilaudid) IVP 0.5 Site# 1. Allergies verified and confirmed 5 rights. IV patency 03:37 11/06/2024 mg (NOW x1, HIGH established. IV site checked: no pain, redness, or swelling. IV Tadeo Tejeda ALERT flushed thoroughly pre-medication administration. IVP given by R.N. MEDICATION) nurse. Information reviewed with patient including reason for taking Scanned this medication, signs of allergic reaction and precautions. Verbalizes understanding. Medication Wastage: 0.5 mg wasted. - 03:38 Tadeo Tejeda R.N. 04:39 11/06 Medication Response: No adverse reaction. Pain is improving. - 05:04 Luzma Farah R.N. Zofran IVP 4 mg 03:37 11/06 Zofran IVP 4 mg given via Site# 1. Allergies verified Given (NOW x1) and confirmed 5 rights. IV patency established. IV site checked: no 03:37 11/06/2024 pain, redness, or swelling. IV flushed thoroughly pre-medication Tadeo Tejeda administration. IVP given by nurse. Information reviewed with R.NApril patient including reason for taking this medication, signs of allergic Scanned reaction and precautions. Verbalizes understanding. - 03:37 Tadeo Tejeda R.N. 3 of 3 IR NEPHROSTOMY EXCHANGE Observed: 2023 8:00 AM Status: F Source: [facility] MAIN ORIGINAL PROCEDURE: IR NEPHROSTOMY TUBE CHANGE Anesthesia provided [...] tube was exchanged for a new 12 Bulgarian external drainage nephrostomy catheter. Pigtail tip formed [...] the procedure including risks, benefits, and alternatives. [place] protocol was observed. Sterile gowns, masks, hats and gloves utilized for maximal sterile barrier. As above in technique section FINDINGS: Preliminary nephrostogram demonstrates satisfactory position of previously placed external drainage nephrostomy catheter. Postprocedure image demonstrates new 12 Bulgarian left nephrostomy tube with tip curled in left renal pelvis. No complication or contrast extravasation noted. IMPRESSION: Exchange of previously placed 12 Bulgarian left nephrostomy tube for a new, similar tube with tip curled in left renal pelvis. No complication suggested. Interpreted by: Clotilde Hernández DO Preliminary Report By: Clotilde Hernández DO Electronically signed By Clotilde Hernández DO Dictated Date: 10/13/2024 3:36:32 PM Prelim Date: 10/13/2024 3:38:58 PM Sign Date: 10/13/2024 3:38:58 PM Ordering Provider: VON BACA CT ABDOMEN/PELVIS WO Observed: 12:42 PM Status: F Source: [place] [id number] Patient: TOR BERMAN Phone#: : 1990 Age: 33 Gender: F Pt. Type: ER Account: [id number] Location: [facility] Ordering: ALICIA KESSLER Exam Date: 08/31/2024/7:18 Family Phys: Charge Code: [id number] Physician: [place] Order #: [id number] Dose#: [id number] PROCEDURE: CT ABDOMEN/PELVIS WITHOUT CONTRAST COMPARISON: [facility], CT, ABDOMEN/PELVIS W CON, 05/17/2024, 19:58. INDICATIONS: nausea vomiting TECHNIQUE: CT images were created without intravenous contrast. All CT scans at this facility use dose modulation, iterative reconstruction, and/or weight based dosing when appropriate to reduce radiation dose to as low as reasonably achievable. IV CONTRAST: No IV contrast used,ml TOTAL DOSE: 4.7 CTDIvol(mGy) FINDINGS: Evaluation of the solid organs and soft tissues is limited in the absence of intravenous contrast. LIVER: Unremarkable in contour BILIARY: Gallbladder is present. PANCREAS: Unremarkable in contour SPLEEN: Unremarkable in contour KIDNEYS: Percutaneous left nephrostomy tube with pigtail in the left renal pelvis. No hydronephrosis. There are three small calcifications in the region of distal left ureter; the calcifications measure 0.2 cm. These may represent phleboliths versus calcifications in the distal left ureter. No right hydronephrosis or nephrolithiasis. ADRENALS: Normal. No mass or enlargement. AORTA/VASCULAR: No aortic aneurysm. RETROPERITONEUM: Limited evaluation for adenopathy in the absence of contrast BOWEL/MESENTERY: Small hiatal hernia. No bowel obstruction or dilatation. No significant stool burden. There is edema in the wall of the colon. The appendix is not visualized. ABDOMINAL WALL: Normal. No mass or hernia. URINARY BLADDER: Partially filled PELVIC NODES: Normal. No adenopathy. PELVIC ORGANS: Uterus is absent. No adnexal mass. Small amount of fluid in the pelvis. BONES: Normal. No bony lesion or fracture. LUNG BASES: Normal. No visible pulmonary or pleural disease. Continued Report - Page 2 of 2 Patient: TOR BERMAN Phone#: : 1990 Age: 33 Gender: F Pt. Type: ER Account: [id number] Location: 052 Ordering: ALICIA KESSLER Exam Date: 08/31/2024/7:18 Family Phys: Charge Code: [id number] Physician: Ingham Order #: [id number] Dose#: [id number] OTHER: Negative. CONCLUSION: 1. Diffuse colon wall thickening, concerning for nonspecific colitis. In a patient this age group most likely represents an infectious etiology though cannot exclude inflammatory or vascular causes. 2. Percutaneous left nephrostomy. 3. Calcifications in the left pelvis may represent calcifications in the distal left ureter versus phleboliths. Dictated by: Stacey Watt MD on 08/31/2024 at 12:31 Approved by: Stacey Watt MD on 08/31/2024 at 12:42 BMP WITH EGFR Collected: 08/31/2024 9:28 AM Status: F Source: [facility] TYPE CODE TESTS RESULT OUT OF RANGE REFERENCE UNITS LAB BMP with eGFR(LOINC) BMP with eGFR Result Comment: BASIC METABO LIC PANEL LAB SODIUM(LOINC) SODIUM 143 136 - 145 mmol/l LAB POTASSIUM(LOINC ) POTASSIUM 3.5 3.5 - 5.1 mmol/L LAB CHLORIDE(LOINC) CHLORIDE 109 High 98 - 107 mmol/L LAB CO2(LOINC) CO2 20.7 Low 21.0 - 32.0 mmol/L LAB GLUCOSE(LOINC) GLUCOSE 124 High 74 - 106 mg/dl LAB BUN(LOINC) BUN 8 7 - 18 mg/dl LAB CREATININE(LOIN C) CREATININE 0.96 0.55 - 1.02 mg/dl LAB CALCIUM(LOINC) CALCIUM 8.3 Low 8.5 - 10.1 mg/dl LAB ANION GAP(LOINC) ANION GAP 17 10 - 20 mmol/L LAB AGE(LOINC) AGE 33 years LAB eGFR(LOINC) eGFR >60 60 - 999 ML/MINUTE LAB eGFR(AA)(LOINC) eGFR(AA) >60 60 - 999 ML/MIN LOWER [place] Result Comment: ACCORDING TO THE NATIONAL KIDNEY DISEASE EDUCATION PROGRAM(NKDE), A NORMAL eGFR IS A VALUE GREATER THAN OR EQUAL TO 60 ML/MIN/1.73 SQ METERS. CHRONIC KIDNEY DISEASE: <60mL/MIN/1.73 SQ METERS KIDNEY FAILURE: <15mL/MIN/1.73 SQ METERS THIS TEST SHOULD ONLY BE USED FOR PATIENTS 18 YEARS OF AGE AND OLDER. Performed By: #### [id number] ## ## [facility],[address] [place] [address] SERUM QUAL Collected: 08/31/2024 6:00 AM S tatus: F Source: [facility] TYPE CODE TESTS RESULT OUT OF RANGE REFERENCE UNITS LAB SER(LOINC) SER POSITIVE NEGATIVE LAB INTERNAL QC(LOINC) INTERNAL QC PASS LAB EXTERNAL QC DONE?(LOINC) EXTERNAL QC DONE? YES Performed By: #### [id number] ## ## [place] [id number] BMP WITH EGFR Collected: 08/31/2024 6:00 AM Status: F Source: [facility] TYPE CODE TESTS RESULT OUT OF RANGE REFERENCE UNITS LAB BMP with eGFR(LOINC) BMP with eGFR Result Comment: BASIC METABO LIC PANEL LAB SODIUM(LOINC) SODIUM 143 136 - 145 mmol/l LAB POTASSIUM(LOINC ) POTASSIUM 2.9 Low Alert 3.5 - 5.1 mmol/L Result Comment: { CALLED TO ED AT 0650 { READ BACK BY TADEO TO CWB LAB CHLORIDE(LOINC) CHLORIDE 104 98 - 107 mmol/L LAB CO2(LOINC) CO2 24.0 21.0 - 32.0 mmol/L LAB GLUCOSE(LOINC) GLUCOSE 146 High 74 - 106 mg/dl LAB BUN(LOINC) BUN 9 7 - 18 mg/dl LAB CREATININE(LOIN C) CREATININE 1.11 High 0.55 - 1.02 mg/dl LAB CALCIUM(LOINC) CALCIUM 9.4 8.5 - 10.1 mg/dl LAB ANION GAP(LOINC) ANION GAP 18 10 - 20 mmol/L LAB AGE(LOINC) AGE 33 years LAB eGFR(LOINC) eGFR 56 Low 60 - 999 ML/MINUTE LAB eGFR(AA)(LOINC) eGFR(AA) >60 60 - 999 ML/MIN LOWER [place] Result Comment: ACCORDING TO THE NATIONAL KIDNEY DISEASE EDUCATION PROGRAM(NKDE), A NORMAL eGFR IS A VALUE GREATER THAN OR EQUAL TO 60 ML/MIN/1.73 SQ METERS. CHRONIC KIDNEY DISEASE: <60mL/MIN/1.73 SQ METERS KIDNEY FAILURE: <15mL/MIN/1.73 SQ METERS THIS TEST SHOULD ONLY BE USED FOR PATIENTS 18 YEARS OF AGE AND OLDER. Performed By: #### [id number] ## ## [facility],[address] [place] [address] CBC + DIFF Collected: 6:00 AM Status: F Source: [facility] TYPE CODE TESTS RESULT OUT OF RANGE REFERENCE UNITS LAB CBC + DIFF(LOINC) CBC + DIFF Result Comment: CBC-COMPLETE BLOOD COUNT LAB WBC(LOINC) WBC 16.5 High 4.5 - 10.8 x 10EE3/UL LAB RBC(LOINC) RBC 4.88 4.10 - 5.30 x 10EE6/UL LAB HEMOGLOBIN(ISAIAH NC) HEMOGLOBIN 15.6 12.0 - 16.0 g/dl LAB HEMATOCRIT(ISAIAH NC) HEMATOCRIT 47.1 High 34.0 - 46.0 % LAB MCV(LOINC) MCV 97 80 - 99 fl LAB MCH(LOINC) MCH 32 27 - 33 pg LAB MCHC(LOINC) MCHC 33 32 - 36 X10 3 LAB RDW/CV(LOINC) RDW/CV 14.0 12.0 - 15.6 % LAB PLATELET(LOINC ) PLATELET 387 150 - 450 x10EE3/UL LAB MPV(LOINC) MPV 7.1 6.6 - 10.5 fl Result Comment: AUTOMATED DI FFERENTIAL LAB NEUT %(LOINC) NEUT % 71.8 46.0 - 76.0 % LAB LYMPH %(LOINC) LYMPH % 20.7 20.0 - 45.0 % LAB MONOS %(LOINC) MONOS % 6.1 0.0 - 10.0 % LAB EO %(LOINC) EO % 1.1 0.0 - 7.0 % LAB BASO %(LOINC) BASO % 0.3 0.0 - 2.0 % LAB Lymph #(LOINC) Lymph # 3.41 High 0.80 - 2.80 x10EE 3/UL LAB Neut #(LOINC) Neut # 11.82 High 1.50 - 7.10 x10EE3 /UL LAB Green #(LOINC) Green # 1.00 0.20 - 1.00 x10EE3 /UL LAB EO #(LOINC) EO # 0.19 0.00 - 0.50 x10EE3/U L LAB Baso #(LOINC) Baso # 0.06 0.00 - 0.10 x10EE3 /UL LAB MANUAL DIFF(LOINC) MANUAL DIFF N/A LAB MORPHOLOGY(ISAIAH NC) MORPHOLOGY N/A Performed By: #### [id number] ## ## [facility],[address] [place] [address] ED MED ADMINISTRATION DETAIL Observed: 1 5:08 AM Status: F Source: [facility] Counter Top Maker Medication Administration Record [place] [id number] [place] [address] [phone] 08/31/2024 Patient: TOR BERMAN Sex: Female : 1990 Age: 33y MEASUREMENTS: Wt: 54.4 kg, Ht/Aden: 64.0 in, BMI: 20.60 ALLERGIES: Haldol, Penicillins Medication Ordered Medication Administration Date/Time IV NS 0.9 % 1999 06:08 08/31 IV NS 0.9 % 2000 mL started in bag#1 2000 mL at Started mL at 999 mL/hr 999 mL/hr via Site# 1. Allergies verified and confirmed 5 rights. IV 06:08 08/31/2024 (NOW x1) patency established. IV site checked: no pain, redness, or swelling. Jose Vargas R.N. IV flushed thoroughly pre-medication administration. Information Stopped reviewed with patient. - 06:09 Jose Vargas R.N. 09:20 08/31/2024 Manfred Gramajo R.N. 09:20 08/31 Medication Discontinued: bag #2 completed. Total Scanned amount infused: 2000 mL. IV patency established. IV site checked: no pain, redness, or swelling. IV flushed thoroughly post-medication administration. - 09:20 Manfred Gramajo R.N. Zofran IVP 8 mg 06:07 08/31 Zofran IVP 8 mg given via Site# 1. Allergies verified Given (NOW x1) and confirmed 5 rights. IV patency established. IV site checked: no 06:07 08/31/2024 pain, redness, or swelling. IV flushed thoroughly pre-medication Jose Vargas R.N. administration. - 06:08 Jose Vargas R.N. Scanned MORPHine IVP 4 06:22 08/31 MORPHine IVP 4 mg given via Site# 1. Allergies Given mg (NOW x1, HIGH verified and confirmed 5 rights. IV patency established. IV site 06:22 08/31/2024 ALERT checked: no pain, redness, or swelling. IV flushed thoroughly SUMA Stock) pre-medication administration. IVP given by nurse. Information R.N. reviewed with patient including reason for taking this medication, Scanned signs of allergic reaction and precautions. Verbalizes understanding. - 06:23 Tadeo Tejeda R.N. 1 of 3 Counter Top Maker Medication Ordered Medication Administration Date/Time Magnesium Sulfate 07:41 08/31 Magnesium Sulfate 4gm/50mL Premix IVPB 2 g Started 4gm/50mL Premix started at 25 mL/hr via Site# 1. Medication Wastage: 2 g wasted. - 07:41 08/31/2024 IVPB 2 g at 25 07:45 Yohana Solano R.N. mL/hr (NOW x1, Stopped HIGH ALERT 07:41 08/31 Medication Co-sign: Verified dosage, concentration 08:42 08/31/2024 MEDICATION) and rate. - 07:45 Yohana Barragan R.N. Scanned 08:42 08/31 Medication Discontinued: IV completed. Total amount infused: 25 mL. IV patency established. IV site checked: no pain, redness, or swelling. IV flushed thoroughly post-medication administration. - 09:21 Manfred Gramajo R.N. potassium 07:38 08/31 potassium chloride(K-Adan)20mEq/100ml IVPB Started chloride(K-Adan)20 Premix 20 mEq started at 50 mL/hr via Site# 1. Via IV pump. IV 07:38 08/31/2024 mEq/100ml IVPB patency established. IV site checked: no pain, redness, or swelling. Manfred Gramajo R.N. Premix 20 mEq at IV flushed thoroughly pre-medication administration. Information Stopped 50 mL/hr (NOW x1) reviewed with patient. Verbalizes understanding. - 07:40 Manfred 09:43 08/31/2024 Yohana Gramajo R.N. Scanned 07:38 08/31 Medication Co-sign: Verified dosage, concentration and rate. - 07:40 Jase Toth R.N. 09:43 08/31 Medication Discontinued: IV completed. Total amount infused: 100 mL. IV patency established. IV site checked: no pain, redness, or swelling. IV flushed thoroughly post-medication administration. - 10:33 Manfred Gramajo R.N. Promethazine GA 07:55 08/31 Promethazine GA 25 mg given. Allergies verified and Given 25 mg (NOW x1) confirmed 5 rights. Information reviewed with patient. Verbalizes 07:55 08/31/2024 understanding. - 07:55 Yohana Solano R.N. Not Scanned Zofran IVP 4 mg 10:11 08/31 Zofran IVP 4 mg given via Site# 1. Allergies verified Given (NOW x1) and confirmed 5 rights. IV patency established. IV site checked: no 10:11 08/31/2024 pain, redness, or swelling. IV flushed thoroughly pre-medication Manfred Gramajo R.N. administration. Information reviewed with patient. Verbalizes Scanned understanding. - 10:12 Manfred Gramajo R.N. 2 of 3 Counter Top Maker 3 of 3 ED PHYSICIAN CLINICAL REPORT Observed: 1 5:08 AM Status: F Source: [facility] Narrative Physician Clinical [address] [address] [phone] 08/31/2024 Patient: TOR BERMAN Sex: Female : 1990 Age: 33y Measurements Wt: 54.4 kg, Ht/Aden: 64.0 in, BMI: 20.60 Initial Vital Sign Measured Time BP MAP HR RR O2Sat ETCO2 Temp Pain GCS RTS 05:18 08/31/2024 182/98 126 55 16 100% 97.8 F 8 Time Seen: 05:20 08/31/2024. Arrived- By private vehicle. Historian- patient. HISTORY OF PRESENT ILLNESS Chief Complaint: VOMITING and DIARRHEA. The patient has had flank pain (for 1 years). The patient has had nausea, vomiting, diarrhea and abdominal pain. No black stools, bloody stools or constipation. This started about 2 days ago and is still present. The illness is described as moderate. Similar symptoms previously. Patient has had similar symptoms several times. REVIEW OF SYSTEMS CONSTITUTIONAL: No fever. : No difficulty with urination or dark urine. Status: Not . PAST HISTORY Narrative See nurses notes. Cervical Cancer Chronic kidney disease (disorder) Surgeries: Percutaneous insertion of nephrostomy tube Medications: escitalopram 20 mg tablet: TAKE ONE TABLET BY MOUTH EVERY DAY lorazepam 1 mg tablet: TAKE ONE TABLET BY MOUTH TWICE DAILY NEEDED FOR ANXIETY ondansetron HCl 4 mg tablet: TAKE ONE TABLET BY MOUTH EVERY 8 HOURS NEEDED FOR NAUSEA AND VOMITING oxycodone 5 mg tablet: TAKE TWO TABLETS BY MOUTH EVERY 6 HOURS NEEDED FOR PAIN Allergies: Haldol Penicillins SOCIAL HISTORY Never smoker. ADDITIONAL NOTES The nursing notes have been reviewed. PHYSICAL EXAM Vital Signs: Have been reviewed. Appearance: Alert. Oriented X3. No acute distress. Eyes: Eyes normal inspection. CVS: Normal heart rate. Heart sounds normal. Pulses normal. Respiratory: No respiratory distress. Painless inspiration. Breath sounds normal. Abdomen: Soft and nontender. Skin: Normal skin color. Neuro: Oriented X 3. No motor deficit. No sensory deficit. 2 of 13 Narrative PROGRESS AND PROCEDURES COORDINATION OF CARE: ED care transferred. Case discussed with Dr. Rodriguez. Assumed care MEDICAL DECISION MAKING: (patient's potassium low given potassium magnesium replacement. Will obtain CT scan for further evaluation. Patient's hCG positive likely from her cancer patient is not . Patient signed out to oncoming provider please see their note for further care). (Electronically signed by Alicia Kessler M.D. 08/31/24 07:13:34 EDT) Generated by [facility] Physician Clinical Narrative [address] [address] [phone] 08/31/2024 Patient: TOR BERMAN Sex: Female : 1990 Age: 33y Disposition: Discharge to Home Disposition Decision Time: 10:08/31/2024 Departure Time: 10:32 08/31/2024 Measurements Wt: 54.4 kg, Ht/Aden: 64.0 in, BMI: 20.60 Initial Vital Sign Measured Time BP MAP HR RR O2Sat ETCO2 Temp Pain GCS RTS 05:18 08/31/2024 182/98 126 55 16 100% 97.8 F 8 PAST HISTORY Cervical Cancer 3 of 13 Narrative Chronic kidney disease (disorder) Surgeries: Percutaneous insertion of nephrostomy tube Medications: escitalopram 20 mg tablet: TAKE ONE TABLET BY MOUTH EVERY DAY lorazepam 1 mg tablet: TAKE ONE TABLET BY MOUTH TWICE DAILY NEEDED FOR ANXIETY ondansetron HCl 4 mg tablet: TAKE ONE TABLET BY MOUTH EVERY 8 HOURS NEEDED FOR NAUSEA AND VOMITING oxycodone 5 mg tablet: TAKE TWO TABLETS BY MOUTH EVERY 6 HOURS NEEDED FOR PAIN Allergies: Haldol Penicillins LABS, X-RAYS, AND EKG Laboratory Tests: BMP with eGFR Final BINA: 08/31/2024 06:00:00 EDT MsgRcvd: 08/31/2024 06:50 EDT Lab Test Result Reference Status Received Comments BASIC 08/31/2024 BMP with eGFR Final METABOLIC 06:50 EDT PANEL 08/31/2024 SODIUM 143 mmol/l 136 - 145 Final 06:50 EDT { CALLED TO ED 2.9 mmol/L AT 0650 08/31/2024 POTASSIUM Below lower panic 3.5 - 5.1 Final { READ BACK BY 06:50 EDT limits TADEO TO CWB Narrative 08/31/2024 CHLORIDE 104 mmol/L 98 - 107 Final 06:50 EDT 08/31/2024 CO2 24.0 mmol/L 21.0 - 32.0 Final 06:50 EDT 146 mg/dl 08/31/2024 GLUCOSE Above high 74 - 106 Final 06:50 EDT normal 08/31/2024 BUN 9 mg/dl 7 - 18 Final 06:50 EDT 1.11 mg/dl 08/31/2024 CREATININE Above high 0.55 - 1.02 Final 06:50 EDT normal 08/31/2024 CALCIUM 9.4 mg/dl 8.5 - 10.1 Final 06:50 EDT 08/31/2024 ANION GAP 18 mmol/L 10 - 20 Final 06:50 EDT 08/31/2024 AGE 33 years Final 06:50 EDT 56 ML/MINUTE 08/31/2024 eGFR 60 - 999 Final Below low normal 06:50 EDT of 13 Narrative ACCORDING TO THE NATIONAL KIDNEY DISEASE EDUCATION PROGRAM(NKDE), A NORMAL eGFR IS A VALUE GREATER THAN OR EQUAL TO 60 ML/MIN/1.73 SQ METERS. 08/31/2024 CHRONIC KIDNEY eGFR(AA) >60 ML/MINUTE 60 - 999 Final 06:50 EDT DISEASE: <60mL/MIN/1.73 SQ METERS KIDNEY FAILURE: <15mL/MIN/1.73 SQ METERS THIS TEST SHOULD ONLY BE USED FOR PATIENTS 18 YEARS OF AGE AND OLDER. CBC + DIFF Final BINA: 08/31/2024 06:00:00 EDT MsgRcvd: 08/31/2024 06:25 EDT Lab Test Result Reference Status Received Comments 08/31/2024 06:25 CBC-COMPLETE CBC + DIFF Final EDT BLOOD COUNT 16.5 x 10/UL 08/31/2024 06:25 WBC 4.5 - 10.8 Final Above high normal EDT 6 Narrative 08/31/2024 06:25 RBC 4.88 x 10/UL 4.10 - 5.30 Final EDT 08/31/2024 06:25 HEMOGLOBIN 15.6 g/dl 12.0 - 16.0 Final EDT 47.1 % 08/31/2024 06:25 HEMATOCRIT 34.0 - 46.0 Final Above high normal EDT 08/31/2024 06:25 MCV 97 fl 80 - 99 Final EDT 08/31/2024 06:25 MCH 32 pg 27 - 33 Final EDT 08/31/2024 06:25 MCHC 33 X10 3 32 - 36 Final EDT 08/31/2024 06:25 RDW/CV 14.0 % 12.0 - 15.6 Final EDT 08/31/2024 06:25 PLATELET 387 x10/UL 150 - 450 Final EDT 08/31/2024 06:25 AUTOMATED MPV 7.1 fl 6.6 - 10.5 Final EDT DIFFERENTIAL 08/31/2024 06:25 NEUT % 71.8 % 46.0 - 76.0 Final EDT 08/31/2024 06:25 LYMPH % 20.7 % 20.0 - 45.0 Final EDT 08/31/2024 06:25 MONOS % 6.1 % 0.0 - 10.0 Final EDT 08/31/2024 06:25 EO % 1.1 % 0.0 - 7.0 Final EDT 08/31/2024 06:25 BASO % 0.3 % 0.0 - 2.0 Final EDT Narrative 3.41 x10/UL 08/31/2024 06:25 Lymph # 0.80 - 2.80 Final Above high normal EDT 11.82 x10/UL 08/31/2024 06:25 Neut # 1.50 - 7.10 Final Above high normal EDT 08/31/2024 06:25 Green # 1.00 x10/UL 0.20 - 1.00 Final EDT 08/31/2024 06:25 EO # 0.19 x10/UL 0.00 - 0.50 Final EDT 08/31/2024 06:25 Baso # 0.06 x10/UL 0.00 - 0.10 Final EDT 08/31/2024 06:25 MANUAL DIFF N/A New Order EDT 08/31/2024 06:25 MORPHOLOGY N/A New Order EDT SERUM QUAL Final BINA: 08/31/2024 06:00:00 EDT MsgRcvd: 08/31/2024 07:05 EDT Lab Test Result Reference Status Received Comments 08/31/2024 07:05 POSITIVE NEGATIVE Final SER EDT 08/31/2024 07:05 INTERNAL QC PASS Final EDT EXTERNAL QC 08/31/2024 07:05 YES Final DONE? EDT BMP with eGFR Final BINA: 08/31/2024 09:28:00 EDT MsgRcvd: 08/31/2024 09:57 EDT 8 of 13 Narrative Lab Test Result Reference Status Received Comments BASIC 08/31/2024 BMP with eGFR Final METABOLIC 09:57 EDT PANEL 08/31/2024 SODIUM 143 mmol/l 136 - 145 Final 09:57 EDT 08/31/2024 POTASSIUM 3.5 mmol/L 3.5 - 5.1 Final 09:57 EDT 109 mmol/L 08/31/2024 CHLORIDE Above high 98 - 107 Final 09:57 EDT normal 20.7 mmol/L 08/31/2024 CO2 21.0 - 32.0 Final Below low normal 09:57 EDT 124 mg/dl 08/31/2024 GLUCOSE Above high 74 - 106 Final 09:57 EDT normal 08/31/2024 BUN 8 mg/dl 7 - 18 Final 09:57 EDT 08/31/2024 CREATININE 0.96 mg/dl 0.55 - 1.02 Final 09:57 EDT 8.3 mg/dl 08/31/2024 CALCIUM 8.5 - 10.1 Final Below low normal 09:57 EDT 08/31/2024 ANION GAP 17 mmol/L 10 - 20 Final 09:57 EDT 08/31/2024 AGE 33 years Final 09:57 EDT 08/31/2024 eGFR >60 ML/MINUTE 60 - 999 Final 09:57 EDT Narrative ACCORDING TO THE NATIONAL KIDNEY DISEASE EDUCATION PROGRAM(NKDE), A NORMAL eGFR IS A VALUE GREATER THAN OR EQUAL TO 60 ML/MIN/1.73 SQ METERS. 08/31/2024 CHRONIC KIDNEY eGFR(AA) >60 ML/MINUTE 60 - 999 Final 09:57 EDT DISEASE: <60mL/MIN/1.73 SQ METERS KIDNEY FAILURE: <15mL/MIN/1.73 SQ METERS THIS TEST SHOULD ONLY BE USED FOR PATIENTS 18 YEARS OF AGE AND OLDER. Diagnostic Study Tests: CT ABDOMEN/PELVIS WO Final EXAM Date: 08/31/2024 12:42:00 EDT MsgRcvd: 08/31/2024 12:46 EDT [place] [address] Patient: TOR BERMAN Narrative Phone#: : 1990 Age: 33 Gender: F Pt. Type: ER Account: [id number] Location: [facility] Ordering: ALICIA KESSLER Exam Date: 08/31/2024/7:18 Family Phys: Charge Code: 390800 Physician: [place] Order #: [id number] Dose#: [id number] PROCEDURE: CT ABDOMEN/PELVIS WITHOUT CONTRAST COMPARISON: [facility], CT, ABDOMEN/PELVIS W CON, 05/17/2024, 19:58. INDICATIONS: nausea vomiting TECHNIQUE: CT images were created without intravenous contrast. All CT scans at this facility use dose modulation, iterative reconstruction, and/or weight based dosing when appropriate to reduce radiation dose to as low as reasonably achievable. IV CONTRAST: No IV contrast used,ml TOTAL DOSE: 4.7 CTDIvol(mGy) FINDINGS: Evaluation of the solid organs and soft tissues is limited in the absence of intravenous contrast. LIVER: Unremarkable in contour BILIARY: Gallbladder is present. PANCREAS: Unremarkable in contour SPLEEN: Unremarkable in contour KIDNEYS: Percutaneous left nephrostomy tube with pigtail in the left renal pelvis. No hydronephrosis. There are three small calcifications in the region of distal left ureter; the calcifications measure 0.2 cm. These may represent phleboliths versus calcifications in the distal left ureter. No right hydronephrosis or nephrolithiasis. ADRENALS: Normal. No mass or enlargement. AORTA/VASCULAR: No aortic aneurysm. RETROPERITONEUM: Limited evaluation for adenopathy in the absence of contrast BOWEL/MESENTERY: Small hiatal hernia. No bowel obstruction or dilatation. No significant stool burden. There is edema in the wall of the colon. The appendix is not visualized. ABDOMINAL WALL: Normal. No mass or hernia. URINARY BLADDER: Partially filled PELVIC NODES: Normal. No adenopathy. PELVIC ORGANS: Uterus is absent. No adnexal mass. Small amount of fluid in the pelvis. BONES: Normal. No bony lesion or fracture. LUNG BASES: Normal. No visible pulmonary or pleural disease. 11 of 13 Narrative Continued Report - Page 2 of 2 Patient: TOR BERMAN Phone#: : 1990 Age: 33 Gender: F Pt. Type: ER Account: [id number] Location: 2 Ordering: ALICIA KESSLER Exam Date: 08/31/2024/7:18 Family Phys: Charge Code: [id number] Physician: Ingham Order #: [id number] Dose#: [id number] OTHER: Negative. CONCLUSION: 1. Diffuse colon wall thickening, concerning for nonspecific colitis. In a patient this age group most likely represents an infectious etiology though cannot exclude inflammatory or vascular causes. 2. Percutaneous left nephrostomy. 3. Calcifications in the left pelvis may represent calcifications in the distal left ureter versus phleboliths. Dictated by: Stacey Watt MD on 08/31/2024 at 12:31 Approved by: Stacey Watt MD on 08/31/2024 at 12:42 PROGRESS AND PROCEDURES MEDICAL DECISION MAKING: (patient has been having nausea vomiting abdominal pain. Her CT did not show an obvious acute abnormality. 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 Her potassium was low she was given IV potassium. We will write her for oral potassium also she has Zofran at home. She will be discharged home. addendum dictation on 09/04/2024. Patient's CT did show colitis which was read after the patient left the department. I did try getting in touch with the patient but was a busy signal. I did discuss this with Dr. Leone who saw her in the emergency department. he fell that no treatment was indicated for the patient. Called her multiple times and been unable to get in touch with her. I get a busy signal.). Disposition: Condition: stable. Discharged in fair condition. Discharge decision based on the following: patient's condition is stable; patient's exam is stable. CLINICAL IMPRESSION 12 of 13 Narrative Acute generalized abdominal pain. Vomiting with nausea and dehydration. Hypokalemia DISCHARGE INSTRUCTIONS Prescription Medications: potassium chloride ER 20 mEq tablet,extended release: Take 1 tablet by mouth once a day for 5 days, dispense 5 tablet. Refills 0. Pharmacy: [facility]. - [address] [place] [address]. Follow-up: Follow up with your doctor in two days. Dr. Pace. (Electronically signed by Rod Rodriguez D.O. 09/04/24 08:54:22 EDT) Generated by [facility] 13 of 13 ED ORDER SHEET (CPOE ONLY) Observed: 5:08 AM Status: F Source: [facility] Order Sheet Order Sheet [address] [place] [address] [id number] 08/31/2024 Patient: TOR BERMAN Sex: Female : 1990 Age: 33y MEASUREMENTS: Wt: 54.4 kg, Ht/Aden: 64.0 in, BMI: 20.60 ALLERGIES: Haldol, Penicillins MEDICATION/IV/DRIP/FLUID ORDERS Order Description Priority Entered Acknowledged Completed IV NS 0.9 %2000 mL at 999 05:15 08/31/2024 05:29 06:09 mL/hr (NOW x1) Alicia Kessler, 08/31/2024 08/31/2024 Yohana Blair R.N. Zofran IVP8 mg (NOW x1) 05:15 08/31/2024 05:29 06:08 Alicia Kessler, 08/31/2024 08/31/2024Yohana Batista M.D., R.N. Reason for ordering with alerts: Benefits outweigh risks --05:15 08/31/2024 Alicia Kessler M.D. droPERidol IVP5 mg (NOW x1) 05:15 08/31/2024 Cancelled: Allergy Alicia Kessler, 05:48 EDT Alicia Kessler M.D. M.D. Reason for ordering with alerts: Benefits outweigh risks --05:15 08/31/2024 Alicia Kessler M.D. MORPHine IVP4 mg (NOW x1, 06:16 08/31/2024 06:20 06:23 1 of 3 Order Sheet HIGH ALERT MEDICATION) Alicia Kessler, 08/31/2024 08/31/2024 Yohana Weiss R.N. Reason for ordering with alerts: Benefits outweigh risks --06:16 08/31/2024 Alicia Kessler M.D. Magnesium Sulfate 4gm/50mL 06:52 08/31/2024 06:53 07:45 Premix IVPB2 g at 25 mL/hr Alicia Kessler, 08/31/2024 08/31/2024 (NOW x1, HIGH ALERT Natali Gramajo, MEDICATION) Yohana Tejeda R.N. potassium 06:52 08/31/2024 06:53 07:40 chloride(K-Adan)20mEq/100ml Alicia Kessler, 08/31/2024 08/31/2024 IVPB Scstzz95 mEq at 50 mL/hr Natali Gramajo, (NOW x1) Yohana Tejeda R.N. Promethazine PR25 mg (NOW 07:41 08/31/2024 07:54 07:55 x1) Rod Rodriguez, 08/31/2024 08/31/2024 Manfred Carnes R.N. RAprilNApril Reason for ordering with alerts: Benefits outweigh risks --07:41 08/31/2024 Rod Rodriguez D.O. Zofran IVP4 mg (NOW x1) 09:56 08/31/2024 10:12 Rod Rodriguez, 08/31/2024 Kendra Gramajo R.N. Reason for ordering with alerts: Benefits outweigh risks --09:56 08/31/2024 Rod Rodriguez D.O. LAB ORDERS Order Description Priority Entered Acknowledged Collected Completed BMP Stat Stat 05:15 08/31/2024 05:29 08/31/2024 07:17 08/31/2024 Tadeo Frost R.N. M.D. [place], R.N. CBC w Diff Stat Stat 05:15 08/31/2024 05:29 08/31/2024 07:17 08/31/2024 2 of 3 Order Sheet Tadeo Frost R.N. M.D. [place], R.N. HCG, Qual Serum Stat Stat 05:15 08/31/2024 05:29 08/31/2024 07:17 08/31/2024 Tadeo Frost R.N. M.D. [place], R.N. BMP Stat Stat 08:31 08/31/2024 09:20 08/31/2024 09:20 08/31/2024 Manfred Stanton R.N. Kobe Miller, R.N. D.O. DIAGNOSTIC STUDY ORDERS Order Description Priority Entered Acknowledged Completed CT ABD/PEL wo IV Cont Stat Stat 05:15 08/31/2024 05:29 07:17 Alicia Kessler, 08/31/2024 08/31/2024 Nikhil Magana R.N. R.N. Order Comments: 05:15 08/31/2024: Status: Not . Alicia Kessler M.D. Reason for Study: Abdominal Pain STAFF ORDERS Order Description Priority Entered Acknowledged Collected Completed [Electronically signed by Alicia Kessler M.D. (08/31/2024 07:13 EDT)] 3 of 3 ED NURSES CLINICAL NOTE Observed: 2023 5:08 AM Status: F Source: [facility] Nurse Narrative Nurse Clinical Narrative [place] [address] [place] [address] [phone] 08/31/2024 Patient: TOR BERMAN Sex: Female : 1990 Age: 33y Disposition: Discharge to Home Disposition Decision Time: 10:08/31/2024 Departure Time: 10:32 08/31/2024 TRIAGE Arrived by private vehicle. Historian: patient. Triage time: 05:09 08/31/2024. Acuity: LEVEL 3. Chief Complaint: ABDOMINAL PAIN, NAUSEA and VOMITING. This started yesterday. SEPSIS SCREEN: NEGATIVE. SIRS criteria negative. -- 05:19 08/31/24 EDT Jose Vargas R.N. 05:19 08/31/24. BP: 182/98 MAP: 126. HR: 55. RR: 16. O2 saturation: 100% Temperature: 97.8 F. Pain level now 8/10. -- 05:19 08/31/24 EDT Jose Vargas R.N. Measurements: 05:16 08/31/24 Wt: 54.4 kg, Ht/Aden: 64.0 in, BMI: 20.60 -- 05:16 08/31/24 EDT Jose Vargas R.N. Medications: escitalopram 20 mg tablet: TAKE ONE TABLET BY MOUTH EVERY DAY -- 05:21 08/31/24 EDT Jose Vargas R.N. oxycodone 5 mg tablet: TAKE TWO TABLETS BY MOUTH EVERY 6 HOURS NEEDED FOR PAIN -- 05:21 08/31/24 EDT Jose Vargas R.N. 1 of 5 Nurse Narrative lorazepam 1 mg tablet: TAKE ONE TABLET BY MOUTH TWICE DAILY NEEDED FOR ANXIETY -- 05:21 08/31/24 EDT Jose Vargas R.N. ondansetron HCl 4 mg tablet: TAKE ONE TABLET BY MOUTH EVERY 8 HOURS NEEDED FOR NAUSEA AND VOMITING -- 05:21 08/31/24 EDT Jose Vargas R.N. Allergies: Haldol -- 05:11 08/31/24 EDT Jose Vargas R.N. Penicillins -- 05:11 08/31/24 EDT Jose Vargas R.N. Problems: Cervical Cancer -- 05:12 08/31/24 EDT Jose Vargas R.N. Chronic kidney disease (disorder) -- 05:12 08/31/24 EDT Jose Vargas R.N. ADDITIONAL SURGERIES: Percutaneous insertion of nephrostomy tube -- 05:15 08/31/24 LILIANAT Jose Vargas R.N. History 05:09 08/31/24. SOCIAL HX: Drug use: marijuana. No alcohol use. The patient has not traveled outside the [place] Infectious disease exposure: No infectious disease exposure. ABUSE ASSESSMENT: The patient answered "yes" to the question(s) "Do you feel safe in your home?" and "no" to the question(s) "Are you afraid to go home?". SELF HARM ASSESSMENT: Self harm assessment was performed. The patient answered no to the question(s) "Have you recently felt down, depressed, or hopeless?" and "Do you have thoughts of harming or killing yourself?". FALL RISK ASSESSMENT: Fall risk assessment completed. No risk factors identified. -- 05:19 08/31/24 GINNY Vargas R.N. 05:22 08/31/24. SOCIAL HX: Current every day smoker. -- 05:22 08/31/24 LILIANAT Jose Vargas R.N. PHYSICAL ASSESSMENT 2 of 5 Nurse Narrative 05:23 08/31/24. BP: 168/99 MAP: 148 mmHg. HR: 61 bpm. -- 06:12 08/31/24 GINNY Tejeda R.N. 05:24 08/31/24. HR: 60 bpm. O2 saturation: 100%. -- 06:12 08/31/24 GINNY Tejeda R.N. 06:00 08/31/24. Ambulatory to room. ( Pt c/o abdominal pain with nausea and vomiting since yesterday at 5 pm.). GENERAL / NEURO / PSYCH: Alert. Oriented X 4. Appears in pain. HEENT: Mucous membranes are pink. RESPIRATORY: Respirations not labored. Breath sounds within normal limits. CVS: Normal sinus rhythm noted. Capillary refill less than 2 seconds. GI / : The patient has had nausea. Emesis noted. Abdominal tenderness diffusely (All over abd pain, radiates to back). SKIN: Skin is warm and dry. -- 06:15 08/31/24 GINNY Tejeda R.N. 06:12 08/31/24. Pain level now 8/10. -- 06:12 08/31/24 EDT Tadeo Tejeda R.N. NURSING PROGRESS NOTES 06:06 08/31/24. Site #1 started via IV in the right antecubital space with a 20g angiocath with ultrasound guidance; 2 attempts. Blood drawn: rainbow set tube(s). -- 06:06 08/31/24 EDT Jose Vargas R.N. 06:07 08/31/24. Zofran IVP 8 mg given via Site# 1. Allergies verified and confirmed 5 rights. IV patency established. IV site checked: no pain, redness, or swelling. IV flushed thoroughly pre-medication administration. -- 06:08 08/31/24 EDT Jose Vargas R.N. 06:08 08/31/24. IV NS 0.9 % 2000 mL started in bag#1 2000 mL at 999 mL/hr via Site# 1. Allergies verified and confirmed 5 rights. IV patency established. IV site checked: no pain, redness, or swelling. IV flushed thoroughly pre-medication administration. Information reviewed with patient. -- 06:09 08/31/24 EDT Jose Vargas R.N. 06:11 08/31/24. Monitoring of patient in place. Two patient identifiers checked. Call light placed in reach. Side rails up x 1. Bed placed in lowest position. Brakes of bed on. -- 06:16 08/31/24 EDT Tadeo Tejeda R.N. 06:19 08/31/24. ( Pt ambulates to RR). -- 06:19 08/31/24 EDT Tadeo Tejeda R.N. 06:22 08/31/24. MORPHine IVP 4 mg given via Site# 1. Allergies verified and confirmed 5 rights. IV patency established. IV site checked: no pain, redness, or swelling. IV flushed thoroughly pre-medication administration. IVP given by nurse. Information reviewed with patient including reason for taking this medication, signs of allergic reaction and precautions. Verbalizes understanding. -- 06:23 08/31/24 EDT Tadeo Tejeda R.N. 06:35 08/31/24. Monitoring of patient in place. Patient gowned. Two patient identifiers checked. Call light placed in reach. Side rails up x 1. Bed placed in lowest position. Brakes of bed on. -- 06:35 08/31/24 EDT Tadeo Tejeda R.N. 06:52 08/31/24. Critical value relayed by [facility]. Critical value received by Aleja BERRY. Potassium 2.9. K: 2.9. Critical value read back. Verified lab result and patient ID. ED physician notifed of critical value. Orders were received. -- 06:52 08/31/24 EDT Tadeo Tejeda R.N. 07:05 08/31/24. Care transferred and report given (Manfred BERRY). -- 07:10 08/31/24 EDT Tadeo Tejeda R.N. 3 of 5 Nurse Narrative 07:31 08/31/24. Reassessment after medication administered. The patient is resting quietly. GI / : The patient reports nausea. Two patient identifiers checked. Call light placed in reach. Side rails up x 1. Bed placed in lowest position. Brakes of bed on. -- 07:56 08/31/24 EDT Manfred Gramajo R.N. 07:38 08/31/24. potassium chloride(K-dAan)20mEq/100ml IVPB Premix 20 mEq started at 50 mL/hr via Site# 1. Via IV pump. IV patency established. IV site checked: no pain, redness, or swelling. IV flushed thoroughly pre-medication administration. Information reviewed with patient. Verbalizes understanding. -- 07:40 08/31/24 EDT Manfred Gramajo R.N. 07:38 08/31/24. potassium chloride(K-Adan)20mEq/100ml IVPB Premix: Medication Co-sign. Verified dosage, concentration and rate. -- 07:40 08/31/24 EDT Jase Toth R.N. 07:41 08/31/24. Magnesium Sulfate 4gm/50mL Premix IVPB 2 g started at 25 mL/hr via Site# 1. Medication Wastage: 2 g wasted. -- 07:45 08/31/24 EDT Manfred Gramajo R.N. 07:41 08/31/24. Magnesium Sulfate 4gm/50mL Premix IVPB: Medication Co-sign. Verified dosage, concentration and rate. -- 07:45 08/31/24 EDT Jase Toth R.N. 07:55 08/31/24. Promethazine GA 25 mg given. Allergies verified and confirmed 5 rights. Information reviewed with patient. Verbalizes understanding. -- 07:55 08/31/24 LILIANAT Manfred Gramajo R.N. 08:42 08/31/24. Magnesium Sulfate 4gm/50mL Premix IVPB: Medication Discontinued. IV completed. Total amount infused: 25 mL. IV patency established. IV site checked: no pain, redness, or swelling. IV flushed thoroughly post-medication administration. -- 09:21 08/31/24 GINNY Gramajo R.N. 09:20 08/31/24. IV NS 0.9 %: Medication Discontinued. bag #2 completed. Total amount infused: 2000 mL. IV patency established. IV site checked: no pain, redness, or swelling. IV flushed thoroughly post-medication administration. -- 09:20 08/31/24 GINNY Gramajo R.N. 10:11 08/31/24. Zofran IVP 4 mg given via Site# 1. Allergies verified and confirmed 5 rights. IV patency established. IV site checked: no pain, redness, or swelling. IV flushed thoroughly pre-medication administration. Information reviewed with patient. Verbalizes understanding. -- 10:12 08/31/24 GINNY Gramajo R.N. Intake Output 09:34 08/31/24. Urine output: 300 mL. (emptied from nephrostomy bag. ). -- 09:34 08/31/24 GINNY Gramajo R.N. DISPOSITION / DISCHARGE 09:43 08/31/24. potassium chloride(K-Adan)20mEq/100ml IVPB Premix: Medication Discontinued. IV completed. Total amount infused: 100 mL. IV patency established. IV site checked: no pain, redness, or swelling. IV flushed thoroughly post-medication administration. -- 10:33 08/31/24 GINNY Gramajo R.N. 10:29 08/31/24. Site #1 removed upon discharge. Catheter intact. Bandage applied. -- 10:34 08/31/24 EDT Manfred Gramajo R.N. Departure time: 10:32 08/31/2024. Condition at departure: improved. Discharge instructions provided and reviewed with the patient. Reviewed medication(s) dosing and course information. Prescription(s) sent 4 of 5 Nurse Narrative electronically to pharmacy. Reviewed referral to family practice for followup. Verbalized understanding. Written instructions provided in Palestinian. The patient was discharged by the physician. The patient was discharged home. The patient left ambulatory and via private vehicle. Patient driving. -- 10:35 08/31/24 EDT Manfred Gramajo R.N. 10:32 08/31/24. BP: 149/87 MAP: 125 mmHg. HR: 61 bpm. -- 10:33 08/31/24 EDT Manfred Gramajo R.N. (Electronically signed by Manfred Gramajo R.N. 08/31/24 10:35:44 EDT) Generated by [facility] 5 of 5 ED VISIT SUMMARY Observed: 08/31/2024 5:08 AM Status: F Source: [facility] Visit Overview Visit Overview [address] [address] [phone] 08/31/2024 Patient: TOR BERMAN Sex: Female : 1990 Age: 33y 09/04/2024 08:54 AM EDT ED Arrival:05:08 08/31/2024 EDT Status:not Recent Travel:no Language:eng Adv Directive: Isolation Status: Ethnicity:N Fall Risk:no risk Infectious Disease Exposure:no Measurements:5'4" / 162.6 Self-Harm Status:risk Sepsis Screen:negative cm 120.0 lb / 54.4 kg Chief Complaint:ABDOMINAL PAIN, NAUSEA, and VOMITING ALLERGIES Haldol Penicillins HOME MEDICATIONS escitalopram 20 mg tablet: TAKE ONE TABLET BY MOUTH EVERY DAY lorazepam 1 mg tablet: TAKE ONE TABLET BY MOUTH TWICE DAILY NEEDED FOR ANXIETY ondansetron HCl 4 mg tablet: TAKE ONE TABLET BY MOUTH EVERY 8 HOURS NEEDED FOR NAUSEA AND VOMITING oxycodone 5 mg tablet: TAKE TWO TABLETS BY MOUTH EVERY 6 HOURS NEEDED FOR PAIN 1 of 3 Visit Overview PAST MEDICAL HISTORY / PROBLEMS Cervical Cancer Chronic kidney disease (disorder) See nurses notes PAST SURGICAL HISTORY Percutaneous insertion of nephrostomy tube SOCIAL HISTORY Smoking status: Yes Alcohol use: No Drug use: Yes ED COURSE MEDICATIONS GIVEN IN EMERGENCY DEPARTMENT 06:07 08/31/24 Zofran IVP 8 mg 06:08 08/31/24 IV NS 0.9 % 2000 mL 999 mL/hr 06:22 08/31/24 MORPHine IVP 4 mg 07:38 08/31/24 potassium chloride(K-Adan)20mEq/100ml IVPB Premix 20 mEq 50 mL/hr 07:41 08/31/24 Magnesium Sulfate 4gm/50mL Premix IVPB 2 g 25 mL/hr 07:55 08/31/24 Promethazine GA 25 mg 10:11 08/31/24 Zofran IVP 4 mg IV SITE INFORMATION INTAKE OUTPUT Total Urine 300 mL TOTAL OUTPUT 300 mL REASSESMENT (most recent) 07:31 08/31/24. Reassessment after medication administered. The patient is resting quietly. GI / : The patient reports nausea. Two patient identifiers checked. Call light placed in reach. Side rails up x 1. Bed placed in lowest position. Brakes of bed on. 2 of 3 Visit Overview VITAL SIGNS First Vitals Last Vitals Temp 05:18 08/31/24 97.8 F Temp 10:32 08/31/24 BP 05:18 08/31/24 182/98 BP 10:32 08/31/24 149/87 HR 05:18 08/31/24 55 HR 10:32 08/31/24 61 RR 05:18 08/31/24 16 RR 10:32 08/31/24 O2 Sat 05:18 08/31/24 100% O2 Sat 10:32 08/31/24 Pain 05:18 08/31/24 8 Pain 10:32 08/31/24 ETCO2 05:18 08/31/24 ETCO2 10:32 08/31/24 GCS 05:18 08/31/24 GCS 10:32 08/31/24 RTS 05:18 08/31/24 RTS 10:32 08/31/24 PROCEDURES NURSING INTERVENTIONS LABS / STUDIES LABS / STUDIES ORDERED BMP BMP CBC w Diff CT ABD/PEL wo IV Cont HCG, Qual Serum LABS - ABNORMAL RESULTS BMP with eGFR POTASSIUM 2.9 mmol/L (LL) CLINICAL IMPRESSION ACUTE GENERALIZED ABDOMINAL PAIN HYPOKALEMIA VOMITING WITH NAUSEA AND DEHYDRATION 3 of 3 ED VITALS FLOW SHEET Observed: 5:08 AM Status: F Source: [facility] Vitals Vital Sign Flow Sheet [address] [place] [address] [phone] 08/31/2024 Patient: TOR BERMAN Sex: Female : 1990 Age: 33y Measurements Wt: 54.4 kg, Ht/Aden: 64.0 in, BMI: 20.60 Measured Time BP MAP HR RR O2Sat ETCO2 Temp Pain GCS RTS 10:32 08/31/2024 149/87 125 61 09:37 08/31/2024 164/98 120 53 09:08 08/31/2024 150/73 134 49 08:52 08/31/2024 155/92 121 62 08:37 08/31/2024 176/105 127 62 08:22 08/31/2024 155/88 127 64 08:07 08/31/2024 156/94 128 59 07:53 08/31/2024 167/87 135 62 07:14 08/31/2024 46 100% 07:09 08/31/2024 59 100% 07:04 08/31/2024 62 100% 06:59 08/31/2024 46 100% 06:54 08/31/2024 51 100% 06:49 08/31/2024 50 100% 06:44 08/31/2024 64 100% 1 of 2 Vitals Measured Time BP MAP HR RR O2Sat ETCO2 Temp Pain GCS RTS 06:39 08/31/2024 51 100% 06:12 08/31/2024 8 05:24 08/31/2024 60 100% 05:23 08/31/2024 168/99 148 61 05:19 08/31/2024 182/98 126 55 16 100% 97.8 F 8 05:18 08/31/2024 182/98 126 55 16 100% 97.8 F 8 2 of 2 ED PHYSICIAN DISCHARGE REPORT Observed: 08/31/2024 5:08 AM Status: F Source: [facility] Discharge Instructions Discharge Summary [place] [address] [address] [phone] 08/31/2024 [id number] Sex: Female : 1990 Age: 33y Thank you for visiting [facility]. You have been evaluated today by Rod Rodriguez D.O. for the following condition(s): Principal Diagnosis Acute generalized abdominal pain. Vomiting with nausea and dehydration. Hypokalemia INSTRUCTIONS Prescription Medications: potassium chloride ER 20 mEq tablet,extended release: Take 1 tablet by mouth once a day for 5 days, dispense 5 tablet. Refills 0. Pharmacy: [facility]. - [address] [place] [id number]. Follow-up: Follow up with your doctor in two days. Dr. Pace. You have been given the following additional information: Hypokalemia Patient Signature 1 of 5 Discharge Instructions Facility Drug Safety Physician Date/Time General Instructions with ExitWriter [address] [address] [phone] 08/31/2024 Patient: TOR BERMAN Sex: Female : 1990 Age: 33y Thank you for visiting [facility]. You have been evaluated today by Rod Rodriguez D.O. for the following condition(s): Principal Diagnosis Acute generalized abdominal pain. Vomiting with nausea and dehydration. Hypokalemia INSTRUCTIONS Prescription Medications: potassium chloride ER 20 mEq tablet,extended release: Take 1 tablet by mouth once a day for 5 days, dispense 5 tablet. Refills 0. Pharmacy: [facility]. - [address] [place] [address]. Follow-up: Follow up with your doctor in two days. Dr. Pace. ADDITIONAL INFORMATION 2 of 5 Discharge Instructions Hypokalemia Hypokalemia means a low level of potassium in the blood. This most often occurs in people who take water pills (diuretics). It can also result from severe vomiting or diarrhea. You may also have it if you take laxatives for long periods of time. It sometimes happens if you have low magnesium (hypomagnesemia). If you have this, your healthcare provider will treat the low magnesium first. A mild case of hypokalemia often causes no symptoms. It is only found with blood testing. More severe potassium loss causes: Overall weakness Muscle or stomach cramps Rapid or irregular heartbeats (heart palpitations) Low blood pressure Muscle weakness Short-term paralysis in some people Home care Take any potassium supplements as prescribed. Eat foods rich in potassium. High amounts of potassium are found in baked potatoes, baked sweet potatoes, spinach, cantaloupe, cod, halibut, salmon, and scallops. White, red, or carbajal beans are also very good sources. So, too, are avocados, orange juice, bananas, carrots, and tomato juice. If you take certain types of diuretics, you will also need to take potassium supplements. Talk with your healthcare provider. Follow-up care Follow up with your healthcare provider for a repeat blood test within the next week, or as advised by our staff. When to seek medical advice Call your healthcare provider right away if you have: Increased weakness, fatigue, or muscle cramps Dizziness 3 of 5 Discharge Instructions Call 911 Call 911 if you have: Irregular heartbeat, extra beats, or very fast heart rate Loss of consciousness Discharge Summary [address] [address] [phone] 08/31/2024 Patient: TOR BERMAN Sex: Female : 1990 Age: 33y Thank you for visiting [facility]. You have been evaluated today by Alicia Kessler M.D. for the following condition(s): Patient Signature Facility Drug Safety Physician Date/Time General Instructions with ExitWriter [address] [address] [phone] 08/31/2024 Patient: TOR BERMAN Sex: Female : 1990 Age: 33y 4 of 5 Discharge Instructions Thank you for visiting [facility]. You have been evaluated today by Alicia Kessler M.D. for the following condition(s): 5 of 5 ED SUPER BILL Observed: 08/31/2024 5:08 AM Status: F Source: [place] [address] [place] [address] [phone] 08/31/2024 Patient: TOR BERMAN Sex: Female : 1990 Age: 33y Item Facility Professional Category Description Code Code Quantity Fee Total Nurse/E/M EMERGENCY 304597 1 $0.00 $0.00 DEPARTMENT VISIT HIGH/URGENT SEVERITY (69233-57) Nurse/IV/IM/Infusions Drip/IVPB 295533 1 $0.00 $0.00 additional hour (43030) Nurse/IV/IM/Infusions Drip/IVPB 311035 1 $0.00 $0.00 concurrent (69510) Nurse/IV/IM/Infusions Drip/IVPB initial 564724 1 $0.00 $0.00 (48507) Nurse/IV/IM/Infusions Hydration 743361 2 $0.00 $0.00 additional hour (80365) Nurse/IV/IM/Infusions IVP additional 384020 2 $0.00 $0.00 push (13469) 1 of 2 [facility] Item Facility Professional Category Description Code Code Quantity Fee Total Nurse/IV/IM/Infusions IVP same med 977917 1 $0.00 $0.00 (31 min apart) (49963) Grand Total $0.00 Providers Natali Frost D.O. Chief Complaint VOMITING and DIARRHEA. Principal Diagnosis Acute generalized abdominal pain. Vomiting with nausea and dehydration. Hypokalemia ICD-10 Codes R10.84: Generalized abdominal pain E87.6: Hypokalemia K52.9: Noninfective gastroenteritis and colitis, unspecified R11.2: Nausea with vomiting, unspecified 2 of 2 IR NEPHROSTOMY EXCHANGE Observed: 2023 10:00 AM Status: F Source: [facility] ORIGINAL HISTORY: ORDERING SYSTEM PROVIDED HISTORY: Reason for Exam: cervical caner PROCEDURE: 1. Nephrostomy tube exchange under fluoroscopy LATERALITY: Left RESTORATION OFFICER: Dr. Goss Resident: Dr. Goode MATERIALS: 12 Fr drainage catheter Amplatz Stem bag Jese catheter ANESTHESIA: General anaesthesia. INTRASERVICE [...] sterilely prepped and draped. Time out performed. Tie Buyer image demonstrates stable appearance of the nephrostomy [...] Interpreted by: Garth Goss Preliminary Report By: Douglas Goode Electronically signed By Garth Goss Dictated Date: 08/11/2024 2:01:42 PM Prelim Date: 08/11/2024 5:39:17 PM Sign Date: 08/11/2024 5:39:17 PM Ordering Provider: NASRIN SIABEL CBC Collected: 7:27 AM Status: F Source: [facility] TYPE CODE TESTS RESULT OUT OF RANGE REFERENCE UNITS LAB WBC(LOINC) WBC 8.9 4.5-10.8 10 3/mcL LAB RBCCT(LOINC) RBC 4.15 4.10-5.30 10 6/mcL LAB HGB(LOINC) Hgb 13.5 12.0-16.0 G/dL LAB HCT(LOINC) Hct 40.0 34.0-46.0 % LAB MCV(LOINC) MCV 96.4 80.0-99.0 fL LAB MCH(LOINC) MCH 32.6 27.0-33.0 pg LAB MCHC(LOINC) MCHC 33.8 32.0-36.0 G/dL LAB RDW(LOINC) RDW 16.0 High 11.5-15.5 % LAB PLT(LOINC) Platelet 429 150-450 10 3/mcL LAB MPV(LOINC) MPV 7.4 6.6-10.5 fL Performed By: #### CBC, ADIF F, ANEU, BMP, GFR #### [address] [address] .AUTO DIFF Collected: 08/06/2024 7:27 AM Status: F Source: [facility] TYPE CODE TESTS RESULT OUT OF RANGE REFERENCE UNITS LAB GREGORIA(LOINC) Neutrophil % 68.4 50.0-75.0 % LAB LYM(LOINC) Lymphocyte % 20.0 20.0-40.0 % LAB MON(LOINC) Monocyte % 6.1 2.0-13.0 % LAB EO(LOINC) Eosinophil % 4.3 0.0-6.0 % LAB BAS(LOINC) Basophil % 1.2 0.0-2.5 % LAB ABLYM(LOINC) Lymphocyte, Absolute 1.8 0.9-4.3 10 3/mcL LAB MIKEY(LOINC) Monocyte, Absolute 0.5 0.1-1.4 10 3/mcL LAB AEOS(LOINC) Eosinophil, Absolute 0.4 0.0-0.7 10 3/mcL LAB ABAS(LOINC) Basophil, Absolute 0.1 0.0-0.3 10 3/mcL Performed By: #### CBC, ADIF F, ANEU, BMP, GFR #### [address] [address] .NEUABS Collected: 7:27 AM Status: F Source: [facility] TYPE CODE TESTS RESULT OUT OF RANGE REFERENCE UNITS LAB ANEU(LOINC) Neutrophil, Absolute 6.1 2.3-8.1 10 3/mcL Performed By: #### CBC, ADIF F, ANEU, BMP, GFR #### [place] [address] BMP Collected: 08/06/2024 7:27 AM Status: F Source: [facility] TYPE CODE TESTS RESULT OUT OF RANGE REFERENCE UNITS LAB GLU(LOINC) Glucose Level 85 70-110 mg/dL LAB NA(LOINC) Sodium Level 143 136-145 mEq/L LAB K(LOINC) Potassium Level 4.4 3.5-5.0 mEq/L LAB CL(LOINC) Chloride 110 98-110 mEq/L LAB CO2(LOINC) CO2 27 22-32 mEq/L LAB EBAL(LOINC) Electrolyte Balance 6.0 4.0-15.0 mEq/L LAB BUN(LOINC) BUN 12.0 8.0-22.0 mg/dL LAB CRE(LOINC) Creatinine Lvl (s) 0.90 0.50-1.20 mg/dL Result Comment: Testing perf ormed on Tylr Mobile analyzer using enzymatic creatinine methodology. LAB BC(LOINC) BUN/Creatinine Ratio 13.3 10.0-22.0 ratio LAB CA(LOINC) Calcium Lvl 10.7 High 8.7-10.4 mg/dL Performed By: #### CBC, ADIF F, ANEU, BMP, GFR #### [place] [address] .GFR Collected: 7:27 AM Status: F Source: [facility] TYPE CODE TESTS RESULT OUT OF RANGE REFERENCE UNITS LAB GFRAA(LOINC) GFR >60 ml/min/1. 73sqm Result Comment: GFR Population mean for , [...] Disease: Less than 15 mL/min/1.73 square meters LAB GFRNO(LOINC) GFR Non- >60 ml/min/1. 73sqm Result Comment: GFR Population mean for , [...] 15 mL/min/1.73 square meters Performed By: #### CBC, ADIF F, ANEU, BMP, GFR #### [place] [address] ALLERGIES DATE TYPE / CODE NAME / CODE REACTION SEVERITY SOURCE Drug Allergy/772574746 (SNOMED CT) PENICILLINS (CLASS)/28137394(RXNORM) [facility] Drug Allergy/737842076 (SNOMED CT) HALOPERIDOL/97447679(RXN ORM) [facility] ENCOUNTERS ADMIT/DISCHARGE ACCOUNT NUMBER ADMITTING ENCOUNTER CLASS LOCATION SOURCE 07/26/2025 [id number] Ambulatory ABuilding:P R [facility] 07/18/2025/07/18/20 [id number] Ambulatory ABuilding:[facility] 06/30/2025 [id number] Ambulatory ABuilding:S D [facility] 06/29/2025 [id number] Ambulatory ABuilding:S D U [facility] MA[facility] 06/29/2025/06/29/20 25 [id number] Ambulatory ABuilding:KYLIE URoom: 0136Bed: [facility] MAIN 06/20/2025/06/20/20 [id number] Ambulatory [facility] 06/19/2025/06/19/20 [id number] ANDREW WINTER Emergency Buildin Room: ERBed: [address] [place] [address] 06/07/2025 [id number] Ambulatory ABuilding:P R KYLIE [facility] 06/07/2025/06/07/20 25 [id number] PEPE VICTORIA Emergency Buildin Room: ERBed: 6 [facility] 06/05/2025/06/05/20 25 [id number] ANDREW WINTER Emergency Buildin Room: ERBed: HW [facility] 06/01/2025/06/01/20 25 [id number] GONZALEZ PINEDA DO Emergency Buildin Room: ERBed: 1 [facility] 05/27/2025/05/30/20 25 [id number] SHARON LORA, DR OLI Jenkins Inpatient Encounter ABuilding:ID 6SRoom: 6679Bed: [facility] 05/26/2025/05/26/20 25 [id number] GONZALEZ PINEDA DO Emergency Buildin Room: ERBed: 3 [facility] 05/25/2025/05/26/20 25 [id number] Emergency ABuilding:[facility] 05/11/2025/05/11/20 25 [id number] Ambulatory ABuilding:[facility] MA[facility] 05/08/2025/05/09/20 25 [id number] Emergency ABuilding:[facility] MA[facility] 05/04/2025/05/07/[id number] RHIANNON ARTEAGA MD Emergency ABuilding:ID 6SRoom: 6672Bed: [facility] 05/03/2025/05/03/20 25 [id number] GONZALEZ PINEDA DO Emergency Buildin Room: ERBed: 7 [facility] 05/03/2025/05/03/20 25 [id number] Emergency ABuilding:[facility] MAIN 05/02/2025/05/03/20 25 [id number] GABBY MEYERS DO Emergency Buildin Room: ERBed: 1 [facility] 04/29/2025/04/29/20 25 [id number] GONZALEZ PINEDA DO Emergency Buildin Room: ERBed: 4 [facility] 04/11/2025/04/11/20 [id number] Ambulatory ABuilding:[facility] 04/06/2025/04/07/20 [id number] BHUPENDRA GALVEZ DO Emergency ABuilding:ME 6SRoom: 6660Bed: [facility] MAIN 04/04/2025/04/05/[id number] RHIANNON ARTEAGA MD Emergency ABuilding:ME 6NRoom: 6633Bed: [facility] MAIN 04/04/2025 [id number] Ambulatory ABuilding:X R [facility] MAIN 04/03/2025/04/03/20 [id number] CHRISTO ARIAS DO Emergency Buildin Room: ERBed: 3 [facility] 04/01/2025/04/01/20 [id number] GONZALEZ PINEDA DO Emergency Buildin Room: ERBed: 6 [facility] 03/30/2025/03/30/20 [id number] Ambulatory ABuilding:UR [facility] 03/25/2025 [id number] Ambulatory ABuilding:P R [facility] 03/23/2025/03/23/20 [id number] ROD RODRIGUEZ Emergency Buildin Room: ERBed: 6 [facility] 03/15/2025/03/15/20 [id number] Emergency ABuilding:[facility] MAIN 03/09/2025/03/09/20 [id number] Emergency ABuilding:[facility] MA[facility] 03/08/2025/03/08/20 [id number] ROD RODRIGUEZ Emergency Buildin Room: ERBed: 4 [facility] 03/08/2025/03/08/20 [id number] Ambulatory ABuilding:[facility] MA[facility] 03/07/2025/03/07/20 [id number] ALICIA KESSLER MD Emergency Buildin Room: ERBed: 6 [facility] 03/05/2025/03/06/20 25 [id number] GONZALEZ PINEDA DO Emergency Buildin Room: ERBed: 7 [facility] 02/16/2025/02/17/20 25 [id number] Ambulatory ABuilding:SD URoom: 0130Bed: [facility] MAIN 02/14/2025/02/15/20 25 [id number] Ambulatory ABuilding:[facility] 02/10/2025/02/11/20 25 [id number] GONZALEZ PINEDA DO Emergency Buildin Room: ERBed: 2 [facility] 02/01/2025 [id number] Ambulatory ABuilding:S D [facility] MAIN 01/29/2025/01/30/20 25 [id number] GONZALEZ PINEDA DO Emergency Buildin Room: ERBed: 5 [facility] 01/21/2025/01/22/20 25 [id number] BEATRICE QUEZADA DO Emergency Buildin Room: ERBed: 1 [facility] 12/22/2024 [id number] Ambulatory ABuilding:X R [facility] MAIN 12/22/2024/12/22/19 [id number] Ambulatory ABuilding:SD URoom: 0116Bed: [facility] MAIN 12/13/2024/12/13/19 25 [id number] Ambulatory ABuilding:[facility] 12/10/2024/12/10/19 25 [id number] GONZALEZ PINEDA DO Emergency Buildin Room: ERBed: [facility] 11/15/2024/11/19/19 [id number] Ambulatory ABuilding:AL [facility] MAIN 11/15/2024/11/15/19 [id number] Ambulatory ABuilding:[facility] 11/06/2024/11/06/19 25 [id number] KORINA AGUILAR MD Emergency Buildin Room: ERBed: 5 [facility] 10/13/2024/10/13/20 24 [id number] Ambulatory ABuilding:SD URoom: 0135Bed: A [facility] 10/01/2024 [id number] Ambulatory ABuilding:P R [facility] 09/28/2024/09/28/20 24 [id number] Ambulatory ABuilding:[facility] 08/31/2024/08/31/20 24 [id number] ALICIA KESSLER MD Emergency Buildin Room: ERBed: 1 [facility] 08/16/2024/08/16/20 24 [id number] Ambulatory ABuilding:PA [facility] MAIN 08/11/2024/08/11/20 24 [id number] Ambulatory ABuilding:SD URoom: 0121Bed: B [facility] MAIN 08/06/2024/08/06/20 24 [id number] Ambulatory ABuilding:[facility] MAIN PAYERS ENCOUNTER GUARANTOR PAYER SUBSCRIBER SOURCE 07/26/2025 TOR MACB: MURTAZ[address]ta [address] [place] [address]Hgt: (HP) Primary Insurance:MEDICARE PART B INSCOPolicy Number: [id number] Date:8201-17-55Ikbq Name:[facility] [address] [place] [address]XY: TOR MACB: [id number] [place] [phone]: (HP) () [facility] 07/18/2025 TOR MACB: MURTAZ[address]ta [address] [place] [phone]: (HP) Primary Insurance:MEDICARE PART B INSCOPolicy Number: [id number] Date:2382-56-33Vhij Name:[facility] Administrators [facility] [place] [address]HJ: TOR L BOLEYDOB: 2623-52-15VFR[address] [place] [phone]: (HP) (WP) [facility] 06/30/2025 TOR L BOLEYDOB: [address] [place] [phone]: (HP) Primary Insurance:MEDICARE PART B INSCOPolicy Number: [id number] Date:8564-67-32Jpre Name:[facility] Administrators [facility] Nathen [address]Cnizfmsvf [place] [address]IX: TOR L BOLEYDOB: [id number] [place] [phone]: (HP) () [facility] 06/29/2025 TOR L BOLEYDOB: [address] [place] [phone]: (HP) Primary Insurance:MEDICARE PART B INSCOPolicy Number: [id number] Date:5321-06-43Sknw Name:[facility] Administrators [facility] [place] [address]OO: TOR L BOLEYDOB: 1923-08-73JOF[address] [place] [phone]: (HP) () [facility] 06/29/2025 TOR L BOLEYDOB: [address] [place] [phone]: (HP) Primary Insurance:MEDICARE PART B INSCOPolicy Number: [id number] Date:6646-37-64Akfm Name:[facility] Administrators [address] [address]XH: TOR L BOLEYDOB: [id number] [place] [phone]: (HP) () [facility] 06/20/2025 TOR L BOLEYDOB: [address] [place] [phone]: (HP) Primary Insurance:MEDICARE PART B INSCOPolicy Number: [id number] Date:9904-33-48Gprx Name:[facility] Administrators [address] [address]LB: TOR L BOLEYDOB: [id number] [place] [phone]: (HP) (WP) [facility] 06/19/2025 TOR L BOLEYDOB: [address] [place] [address]Lab: (HP) Primary Insurance:MEDICARE OUTPATIENTPolicy Number: [id number] Date:Plan Name: TOR L BOLEYDOB: [id number] [address] [place] [address] [facility] 06/07/2025 TOR L BOLEYDOB: [address] [place] [phone]: (HP) Primary Insurance:MEDICARE PART B INSCOPolicy Number: [id number] Date:3308-95-12Bpjs Name:MICHAEL EDGE [place] [address]YH: TOR Boyce BOLEYDOB: 6411-89-08HCK[address] [place] [phone]: (HP) () [facility] 06/07/2025 TOR Austen BOLEYDOB: [address] [place] [address]Pon: () Primary Insurance:MEDICARE OUTPATIENTPolicy Number: [id number] Date:Plan Name: TOR Boyce BOLEYDOB: [id number] [address] [place] [id number] [place] [address] 06/07/2025 Secondary Insurance:MEDICARE PHYSICIANPolicy Number: [id number] Date:Plan Name: TOR Boyce BOLEYDOB: [id number] [address] [place] [id number] [place] [address] 06/05/2025 TOR Boyce BOLEYDOB: [address] [place] [phone]: () Primary Insurance:MEDICARE OUTPATIENTPolicy Number: [id number] Date:Plan Name:GILBERTO Boyce BOLEYDOB: [id number] [address] [place] [address] [facility] 06/05/2025 Secondary Insurance:MEDICARE PHYSICIANPolicy Number: [id number] Date:Plan Name:LUIS TOR Boyce BOLEYDOB: [id number] [address] [place] [phone] [place] [address] 06/01/2025 TOR Austen BOLEYDOB: [address] [place] [phone]: (HP) Primary Insurance:MEDICARE OUTPATIENTPolicy Number: [id number] Date:Plan Name: TOR Boyce BOLEYDOB: [id number] [address] [place] [address] [facility] 06/01/2025 Secondary Insurance:MEDICARE PHYSICIANPolicy Number: [id number] Date:Plan Name: TOR Boyce BOLEYDOB: [id number] [address] [place] [address] [facility] 05/27/2025 TOR L BOLEYDOB: [address] [place] [address]Wnj: (HP) Primary Insurance:MEDICARE PART A INSCOPolicy Number: [id number] Date:3493-74-98Axzl [facility] [address], [place] [address]AZ: TOR Boyce BOLEYDOB: 3431-01-77UMC[address] [place] [address]Pml: (HP) (WP) [facility] 05/27/2025 Secondary Insurance:MEDICARE PART B INSCOPolicy Number: [id number] Date:7164-58-07Egje Name:[facility] Administrators [address] [address]gg, [place] [address]PX: TOR L BOLEYDOB: [id number] [place] [phone]: (HP) (WP) [facility] 05/26/2025 TOR L BOLEYDOB: [address] [place] [phone]: (HP) Primary Insurance:MEDICARE OUTPATIENTPolicy Number: [id number] Date:Plan Name: TOR Boyce BOLEYDOB: [id number] [address] [place] [address] 13451 [facility] 05/26/2025 Secondary Insurance:MEDICARE PHYSICIANPolicy Number: [id number] Date:Plan Name: TOR Boyce BOLEYDOB: 4127-08-65HNS469 [address] [place] [address]70 [facility] 05/25/2025 TRO Boyce BOLEYDOB: [address] [place] [address]Qys: (HP) Primary Insurance:MEDICARE PART B INSCOPolicy Number: [id number] Date:3414-06-76Ektd Name:[facility] Administ[facility] [address] [address]JM: TOR Boyce BOLEYDOB: 3867-75-68BWS[address] [place] [phone]: (HP) () [facility] 05/11/2025 TOR Boyce BOLEYDOB: [address] [place] [address]Iay: (HP) Primary Insurance:MEDICARE PART B INSCOPolicy Number: [id number] Date:3064-73-94Scnc Name:[facility] Administ[facility] [address] [place] [address]EI: TOR Boyce BOLEYDOB: 2455-27-62PEE[address] [place] [phone]: (HP) (WP) [facility] 05/08/2025 TOR Austen BOLEYDOB: [address] [place] [address]Moi: (HP) Primary Insurance:MEDICARE PART B INSCOPolicy Number: [id number] Date:1839-34-17Dpsp Name:[facility] [address] [address]OA: TOR Austen BOLEYDOB: [id number] [place] [address]Rgh: (HP) (WP) [facility] 05/04/2025 TOR Austen BOLEYDOB: [address] [place] [phone]: (HP) Primary Insurance:MEDICARE PART B INSCOPolicy Number: [id number] Date:9354-70-03Gicu Name:[facility] [address] [address]HJ: TOR Austen BOLEYDOB: 4405-81-96XZN166 [address] [place] [phone]: (HP) (WP) [facility] 05/03/2025 TOR Austen BOLEYDOB: [address] [place] [address]Yep: (HP) Primary Insurance:MEDICARE OUTPATIENTPolicy Number: [id number] Date:Plan Name: TOR Boyce BOLEYDOB: 9668-90-52OJE112 [address] [place] [address] [facility] 05/03/2025 TOR L BOLEYDOB: [address] [place] [address]Qxq: (HP) Primary Insurance:MEDICARE PART B INSCOPolicy Number: [id number] Date:9326-36-78Aaon Name:[facility] Administrators [facility] Nathen [address]gni, [place] [address]RX: TOR Boyce BOLEYDOB: 1032-11-36WJI[address] [place] [address]Cof: (HP) () [facility] 05/02/2025 TOR Boyce BOLEYDOB: [address] [place] [address]Ixh: (HP) Primary Insurance:MEDICARE OUTPATIENTPolicy Number: [id number] Date:Plan Name:GILBERTO Boyce BOLEYDOB: [id number] [address] [place] [address] [facility] 04/29/2025 TOR Boyce BOLEYDOB: [address] SE[address] [place] [phone]: (HP) Primary Insurance:MEDICARE OUTPATIENTPolicy Number: [id number] Date:Plan Name:GILBERTO ASHLEYEYDOB: 7272-79-43VPM033 [address] [place] [address] [facility] 04/11/2025 TOR Boyce BOLEYDOB: [address] [place] [address]Skf: (HP) Primary Insurance:MEDICARE PART B INSCOPolicy Number: [id number] Date:1520-79-08Gcvj Name:[facility] Nathen [address]Fncxlqxvw, [place] [address]JE: TOR L BOLEYDOB: [id number] [place] [phone]: (HP) (WP) [facility] 04/06/2025 TOR L BOLEYDOB: [address] [place] [address]Rjr: (HP) Primary Insurance:MEDICARE PART B INSCOPolicy Number: [id number] Date:2221-50-55Lzbv Name:[facility] Nathen [address]Zfznqvwun, [place] [address]SD: TOR L BOLEYDOB: 8811-02-27JSY[address] [place] [address]Xie: (HP) (WP) [facility] 04/04/2025 TOR L BOLEYDOB: [address] [place] [phone]: (HP) Primary Insurance:MEDICARE PART B INSCOPolicy Number: [id number] Date:8000-51-58Uigf Name:[facility] Nathen Lagunas74021Mayibdwtr [place] [address]BL: TOR L BOLEYDOB: [id number] [place] [address]Tsf: (HP) () [facility] 04/04/2025 TOR L BOLEYDOB: [address] [place] [address]Ajd: (HP) Primary Insurance:MEDICARE PART B INSCOPolicy Number: [id number] Date:1859-14-78Jgcm Name:[facility] Administrators [place] [address]IG: TOR Boyce BOLEYDOB: 2781-65-72QRG[address] [place] [address]Wus: (HP) (WP) [facility] 04/03/2025 TOR ASHLEYEYDOB: [address] [place] [address] [phone]: (HP) Primary Insurance:MEDICARE OUTPATIENTPolicy Number: [id number] Date:Plan Name:GILBERTO ASHLEYEYDOB: 4113-92-67JOR503 [address] [place] [address] 34494 [facility] 04/01/2025 TOR Boyce BOLEYDOB: [address] [place] [address] [phone]: (HP) Primary Insurance:MEDICARE OUTPATIENTPolicy Number: [id number] Date:Plan Name:GILBERTO ASHLEYEYDOB: [id number] [address] [place] [address] [facility] 03/30/2025 TOR ASHLEYEYDOB: [address] [place] [phone]: (HP) Primary Insurance:MEDICARE PART B INSCOPolicy Number: [id number] Date:5345-71-76Zifa Name:[facility] KELY Sena [address]Wwylhdqws, [place] [address]TL: TOR Boyce BOLEYDOB: 2799-95-35NFL[address] [place] [address]Cnj: (HP) (WP) [facility] 03/25/2025 TOR L BOLEYDOB: [address] [place] [phone]: (HP) Primary Insurance:MEDICARE PART B INSCOPolicy Number: [id number] Date:9110-04-82Uvpn Name:[facility] Administrators [facility] [address]Lgrtljeux[place], [place] [address]MY: TOR L BOLEYDOB: 8294-99-27OOP[address] [place] [address]Jqt: (HP) () [facility] 03/23/2025 TOR L BOLEYDOB: [address] [place] [address] 99[address]Jea: (HP) Primary Insurance:MEDICARE OUTPATIENTPolicy Number: [id number] Date:Plan Name: TOR Boyce BOLEYDOB: [id number] [address] [place] [address] [facility] 03/15/2025 TOR L BOLEYDOB: [address] [place] [address]Sqj: (HP) Primary Insurance:MEDICARE PART B INSCOPolicy Number: [id number] Date:4361-38-64Dklq Name:[facility] [address]Cbeqdwgzn [place] [address]LL: TOR L BOLEYDOB: 9133-16-98BSF[address] [place] [phone]: (HP) () [facility] 03/09/2025 TOR Austen BOLEYDOB: [address] [place] [address]Etk: (HP) Primary Insurance:MEDICARE PART B INSCOPolicy Number: [id number] Date:8867-89-62Tekv Name:BANNER [place] [address]WQ: TOR L BOLEYDOB: 8333-29-91HAQ7[address] [place] [phone]: (HP) (WP) [facility] 03/08/2025 TOR L BOLEYDOB: [address] [place] [address] [phone]: (HP) Primary Insurance:MEDICARE OUTPATIENTPolicy Number: [id number] Date:Plan Name: TOR L BOLEYDOB: [id number] [address] [place] [address]686 [facility] 03/08/2025 TOR L BOLEYDOB: [address] [place] [address]Wue: (HP) Primary Insurance:MEDICARE PART B INSCOPolicy Number: [id number] Date:8463-91-69Iuop Name:BANNER [place] [address]RE: TOR L BOLEYDOB: 1085-02-61KQP8[address] [place] [phone]: (HP) () [facility] 03/07/2025 TOR L BOLEYDOB: [address] [place] [address] [phone]: (HP) Primary Insurance:MEDICARE OUTPATIENTPolicy Number: [id number] Date:Plan Name:GILBERTO Boyce BOLEYDOB: 8785-49-28SUK177 [address] [place] [address] 33477 [facility] 03/05/2025 TOR Boyce BOLEYDOB: [address] [place] [address] 535[address]Rnl: (HP) Primary Insurance:MEDICARE OUTPATIENTPolicy Number: [id number] Date:Plan Name:GILBERTO Boyce BOLEYDOB: [id number] [address] [place] [address] 93258 [facility] 02/16/2025 TOR Boyce BOLEYDOB: [address] [place] [phone]: (HP) Primary Insurance:MEDICARE PART B INSCOPolicy Number: [id number] Date:6253-13-04Dphn Name:[facility] [address] [address]BL: TOR Boyce BOLEYDOB: 6030-20-33JFA[address] [place] [address]Pgt: (HP) (WP) [facility] 02/14/2025 TOR Boyce BOLEYDOB: [address] [place] [address]Yll: (HP) Primary Insurance:MEDICARE PART B INSCOPolicy Number: [id number] Date:4786-58-88Vhbx Name:[facility] [place] [address], [place] [address]RR: TOR Boyce BOLEYDOB: 1501-17-37JPE[address] [place] [phone]: (HP) (WP) [facility] 02/10/2025 TOR Boyce BOLEYDOB: [address] [place] [address] 25[address]Htm: (HP) Primary Insurance:MEDICARE OUTPATIENTPolicy Number: [id number] Date:Plan Name:GILBERTO Boyce BOLEYDOB: 9060-86-31QLU051 [address] [place] [address] 9[address]38 [facility] 02/01/2025 TOR Boyce BOLEYDOB: [address] [place] [phone]: (HP) Primary Insurance:MEDICARE PART B INSCOPolicy Number: [id number] Date:7952-06-27Gaws Name:[facility] Sena [address] [place] [address]LV: TOR Boyce BOLEYDOB: 5305-86-25HKZ[address] [place] [phone]: (HP) (WP) [facility] 01/29/2025 TOR Boyce BOLEYDOB: [address] [place] [address] 11347Vkm: (HP) Primary Insurance:MEDICARE OUTPATIENTPolicy Number: [id number] Date:Plan Name:GILBERTO Boyce BOLEYDOB: 5504-80-03GDG908 [address] [place] [address] 568[address] [facility] 01/21/2025 TOR Boyce BOLEYDOB: [address] [place] [address] 06[address]Riv: (HP) Primary Insurance:MEDICARE OUTPATIENTPolicy Number: [id number] Date:Plan Name:MC TOR L BOLEYDOB: 1345-70-20VIZ107 [address] [place] [address] 06246 [facility] 12/22/2024 TOR L BOLEYDOB: [address] [place] [address]Vgl: (HP) Primary Insurance:MEDICARE PART B INSCOPolicy Number: [id number] Date:3578-70-77Kche Name:[facility] Nathen [address]Aonozxxtw, [place] [address]CO: TOR L BOLEYDOB: 7428-47-54XEZ404 [address] [place] [address]Rqz: (HP) () [facility] 12/22/2024 TOR L BOLEYDOB: [address] [place] [phone]: (HP) Primary Insurance:MEDICARE PART B INSCOPolicy Number: [id number] Date:2001-78-87Ylwn Name:[facility] Nathen [address]jord[place]q, [place] [address]KH: TOR L BOLEYDOB: 5131-01-78IMR181 [address] [place] [address]Vux: (HP) (WP) [facility] 12/13/2024 TOR L BOLEYDOB: [address] [place] [address]Amq: (HP) Primary Insurance:MEDICARE PART B INSCOPolicy Number: [id number] Date:9268-33-22Bkwa Name:[facility] Nathen [address]Xkrpnwalf, [place] [address]YB: TOR L BOLEYDOB: 1858-81-11XOY[address] [place] [address]Zvn: (HP) () [facility] 12/10/2024 TOR Boyce BOLEYDOB: [address] [place] [address] 399[address]Xjo: (HP) Primary Insurance:MEDICARE OUTPATIENTPolicy Number: [id number] Date:Plan Name: TOR Boyce BOLEYDOB: [id number] [address] [place] [address] 27092 [facility] 11/15/2024 TOR Boyce BOLEYDOB: [address] [place] [address]Ehf: (HP) Primary Insurance:MEDICARE PART B INSCOPolicy Number: [id number] Date:2517-24-17Qmki Name:[facility] [address] [address]RI: TOR Boyce BOLEYDOB: 5150-50-48JKD[address] [place] [address]Mla: (HP) () [facility] 11/15/2024 TOR Boyce BOLEYDOB: [address] [place] [address]Klr: (HP) Primary Insurance:MEDICARE PART B INSCOPolicy Number: [id number] Date:8727-28-60Zksf Name:[facility] [address] [address]KZ: TOR Boyce BOLEYDOB: 1312-60-94YRJ[address] [place] [address]Lws: (HP) (WP) [facility] 11/06/2024 TOR Boyce BOLEYDOB: [address] [place] [address] 03[address]Jug: (HP) Primary Insurance:MEDICARE OUTPATIENTPolicy Number: [id number] Date:Plan Name: TOR Boyce BOLEYDOB: 2061-91-91CTQ080 [address] [place] [address] 47978 [facility] 10/13/2024 TOR Boyce BOLEYDOB: [address] [place] [phone]: (HP) Primary Insurance:MEDICARE PART B INSCOPolicy Number: [id number] Date:7735-68-28Vfrw Name:[facility] Nathen [address]Zvwkdfcit, [place] [address]GQ: TOR Boyce BOLEYDOB: 3412-14-95QZC[address] [place] [phone]: (HP) (WP) [facility] 10/01/2024 TOR Boyce BOLEYDOB: [address] [place] [address]Dpw: (HP) Primary Insurance:MEDICARE PART B INSCOPolicy Number: [id number] Date:9878-49-80Ydxv Name:[facility] Nathen [address]Uxsuwbesv, [place] [address]XL: TOR Boyce BOLEYDOB: 8252-36-77EOV[address] [place] [phone]: (HP) (WP) [facility] 09/28/2024 TOR L BOLEYDOB: [address] [place] [address]Cje: (HP) Primary Insurance:MEDICARE PART B INSCOPolicy Number: [id number] Date:7625-23-49Zlpu Name:[facility] [employer] [facility] [address], [place] [address]ZI: TOR Austen BOLEYDOB: [id number] [place] [phone]: (HP) () [facility] 08/31/2024 TOR Boyce BOLEYDOB: [address] [place] [phone]: (HP) Primary Insurance:MEDICARE OUTPATIENTPolicy Number: [id number] Date:Plan Name: TOR Boyce BOLEYDOB: [id number] [address] [place] [id number] [facility] 08/16/2024 TOR Boyce BOLEYDOB: [address] [place] [phone]: (HP) Primary Insurance:MEDICARE PART B INSCOPolicy Number: [id number] Date:7373-81-10Huns Name:[facility] [employer] [facility] [address], [place] [address]CD: TOR Boyce BOLEYDOB: [id number] [place] [phone]: (HP) (WP) [facility] 08/11/2024 TOR Boyce BOLEYDOB: [address] [place] [phone]: (HP) Primary Insurance:MEDICARE PART B INSCOPolicy Number: [id number] Date:2049-18-66Pmpk Name:[facility] [employer] [facility] [place] [address]MZ: TOR Boyce BOLEYDOB: [id number] [place] [phone]: (HP) () [facility] 08/06/2024 TOR Boyce BOLEYDOB: [address] [place] [phone]: (HP) Primary Insurance:MEDICARE PART B INSCOPolicy Number: [id number] Date:4803-88-86Nhey Name:[facility] [employer] [facility] [place] [address], [place] [address]NT: TOR Boyce BOLEYDOB: [id number] [place] [phone]: (HP) () [facility]
[2025-07-31 23:22] VITALS: BP 108/79; PULSE 87; RESP 16; TEMP 36.6; O2SAT 99; BMI 20.1
[2025-07-31 23:25] VITALS: BP 108/79; PULSE 87; RESP 16; TEMP 36.6; O2SAT 99
--- NOTE | 2025-07-31 23:38 | EX.ED.DYSGE1 ---
HPI History of Present Illness Chief Complaint: Flank Pain Narrative Narrative: Patient is a 34-year-old female with a past medical history of kidney stones, nephrostomy tube, recurrent infections who presents to the emergency department the chief complaint of nausea vomiting back pain. States that she is post to see district engineer at [place] for discussion of possible nephrectomy. Patient states that she was here last night and received pain medication fluids and nausea medication was ultimately sent home. She states that she cannot keep anything down and has worsening pain prompting her to come back for further evaluation management. [facility] Medical History History of MDR Pseudomonas aeruginosa infection Nephrostomy present Kidney failure Kidney stone Cervical cancer Home Medications Medication Instructions Recorded Last Taken Type escitalopram oxalate 20 mg tablet 20 mg PO DAILY 04/09/25 Unknown History (Lexapro) lorazepam 1 mg tablet (Ativan) 1 mg PO Q8H PRN anxiety 04/09/25 06/03/25 06:00 History ondansetron HCl 4 mg tablet 4 mg PO Q6H PRN nausea and vomiting 04/09/25 Unknown History oxycodone 5 mg tablet 10 mg PO Q6H PRN pain 04/09/25 06/03/25 06:00 History ondansetron 4 mg disintegrating 4 mg PO Q8H PRN PRN Nausea #10 tabs 06/04/25 Unknown Rx tablet ciprofloxacin HCl 500 mg tablet 500 mg PO BID #14 TABLETS 07/31/25 Unknown Rx Allergy/AdvReac Type Severity Reaction Status Date / Time haloperidol (From Haldol) Allergy Angioedema Verified 07/31/25 23:22 Penicillins (PCN) Allergy Hives Verified 07/31/25 23:22 Social History Smoking Status: Current every day smoker tobacco type: cigarettes and e-cigarettes ROS ROS ED ROS Narrative Constitutional: Denies any fevers, chills, headaches Eyes: Denies double vision blurry vision Cardiovascular: Denies chest pain Respiratory: Denies shortness of breath Abdomen: Complains of nausea vomiting flank pain as noted above : Denies urinary symptoms Neurological: Denies numbness, weakness, tingling Musculoskeletal: Complains of flank pain Skin: Denies any rashes or lesions EXAM Physical Exam Narrative Exam Narrative: General: Patient was lying in bed rest comfortably did not appear to be in acute distress Head: Atraumatic, normocephalic Eyes: PERRL bilaterally, EOMI bilaterally, no conjunctival injection noted Neck: Soft, supple, trachea midline Cardiovascular: Regular rate and rhythm no murmurs gallops rubs are noted Respiratory: Clear to auscultation bilaterally Abdomen: Soft, nondistended, no tenderness to palpation Musculoskeletal: Patient has nephrostomy tube on the left side Extremities: +5/5 strength noted in the bilateral upper and lower extremities Neurological: Patient follow commands knew that she was at [facility] the year is 2024 Skin: Warm, dry, intact Const Vital Signs: 07/31/25 23:22 07/31/25 23:25 08/01/25 01:25 Temperature 97.8 F 97.8 F Temperature Source Temporal Temporal Pulse Rate 87 87 Respiratory Rate 16 16 Blood Pressure 108/79 108/79 97/67 Blood Pressure Mean 88 88 77 Pulse Ox 99 99 Oxygen Delivery Method Room Air Room Air MDM [facility] MDM Narrative Medical decision making narrative: Patient is a 34-year-old female who presents to the emergency department chief complaint of worsening flank pain, abdominal pain nausea vomiting not tolerating oral intake cannot take her antibiotics. On the differential diagnose includes but not to abscess, failed nephrostomy tube, kidney stone. Once workup is obtained reviewed she will be reevaluated. Patient be given IV fluids. Patient's CBC reviewed showed no evidence leukocytosis white blood count was normal at 9.5, hemoglobin stable at 12.6, platelet count was noted to be 366. Patient sodium is 137, potassium normal at 4.5, creatinine normal at 0.94. Patient's urinalysis showed 250 occult blood, positive nitrates, 500 leukocyte esterase greater than 100 white cells with 4+ bacteria. I did review her previous cultures and she grew out Pseudomonas in the past and was resistant to meropenem however was sensitive to Cipro and Levaquin therefore she will be given Levaquin here in the emergency department urine was sent for culture. Patient CT ab pelvis IV contrast reviewed showed left nephrostomy tube in good position. Mild fullness of the left collecting system is unchanged. 3 obstructing stones of the distal aspect of the left ureter reaching the level of the left ureterovesicular junction unchanged with the largest measuring 3.2 mm. Unchanged left urothelial thickening. Diffuse thickening of the bladder which came secondary to cystitis. Unchanged scattered left renal simple cyst with largest measuring 2 cm. Prior hysterectomy unchanged. Called and spoke with on-call urologist at [place] Dr. Pantoja who states that the patient to be transferred and be seen in consult and to admit the patient to the medicine service. Called and spoke with the hospitalist Dr. Flynn who will accept patient for transfer. Patient be transferred for further discussion of her nephrectomy and her intractable nausea vomiting not tolerating her medications with the worsening flank pain. I notified the patient and she is agreeable to plan all question concerns answered. Lab Data Labs: Laboratory Results - last 24 hr 07/31/25 08/01/25 23:54 01:24 WBC 9.5 RBC 3.90 L Hgb 12.6 Hct 37.6 MCV 96.4 MCH 32.3 H MCHC 33.5 RDW Std Deviation 50.1 H RDW Coeff of [place] 14.1 Plt Count 366 MPV 9.2 Immature Gran % (Auto) 0.500 Neut % (Auto) 62.7 Lymph % (Auto) 24.9 [place] % (Auto) 8.9 Eos % (Auto) 2.1 Baso % (Auto) 0.9 Absolute Neuts (auto) 5.9 Absolute Lymphs (auto) 2.37 Nucleated RBC % 0 Sodium 137 Potassium 4.5 Chloride 104 Carbon Dioxide 21.9 Anion Gap 11 BUN 8 Creatinine 0.94 Estim Creat Clear Calc 71.71 Est GFR (MDRD) Non-Af 80 BUN/Creatinine Ratio 8.6 L Glucose 103 H Calcium 9.0 Urine Color Yellow Urine Clarity Cloudy Urine pH 7.0 Ur Specific [place] 1.010 Urine Protein 100 H Urine Glucose (UA) Normal Urine Ketones Negative Urine Occult Blood 250 H Urine Nitrite Positive H Urine Bilirubin Negative Urine Urobilinogen Normal Ur Leukocyte Esterase 500 H Urine RBC 10-25 SEEN Urine WBC >100 SEEN Ur Squamous Epith Cells 0-5 SEEN Ur Transition Epith Cell 0-5 SEEN Urine Bacteria 4+ Urine Mucus 0 SEEN Urine Test Cancelled Radiography Diagnostic Testing: Clinical Impression(s) from Imaging Studies Abdomen/Pelvis CT 08/01/25 23:37 IMPRESSION: Left nephrostomy tube is in good position. Mild fullness of the left collecting system is unchanged. 3 obstructing stones of the distal aspect of the left ureter reaching the level of the left ureterovesical junction are unchanged with the largest measuring 3.2 mm. Unchanged left urothelial thickening. Diffuse thickening of the bladder which came secondary to cystitis. Unchanged scattered left renal simple cysts with the largest measuring 2 cm. Prior hysterectomy, unchanged. Reading Location: [place] [id number] Discharge Plan Triage Chief Complaint: Flank Pain ED Provider: Jay Curiel Dx/Rx/DC Orders Clinical Impression: Intractable nausea and vomiting, Left flank pain, Urolithiasis Prescriptions: No Action ondansetron 4 mg tablet,disintegrating 4 mg PO Q8H PRN PRN (Reason: Nausea) Qty: 10 0RF oxycodone 5 mg tablet 10 mg PO Q6H PRN (Reason: pain) lorazepam [Ativan] 1 mg tablet 1 mg PO Q8H PRN (Reason: anxiety) escitalopram oxalate [Lexapro] 20 mg tablet 20 mg PO DAILY ondansetron HCl 4 mg tablet 4 mg PO Q6H PRN (Reason: nausea and vomiting) ciprofloxacin HCl 500 mg tablet 500 mg PO BID Qty: 14 0RF Primary Care Provider: OLE GREEN Referrals: OLE GREEN [Other] Print Language: Lao Disposition Disposition: DC/Tx to Another Type of HCF
[2025-08-01 00:18] LABS: Hematocrit 37.6 % (37-47); Hemoglobin 12.6 g/dL (12.0-15.0); Immature Granulocytes Count 0.050 X10^3/uL (0.0-0.0); Mean Corp Hgb Conc 33.5 g/dL (32-36); Mean Corpuscular Volume 96.4 fL (81-99); Mean Platelet Vol. 9.2 fl (6.2-12.0); NRBC Flagged by Analyzer 0 % (0-5); Platelet Count 366 K/mm3 (150-450); RBC Distribution Width CV 14.1 % (11.6-14.6); RBC Distribution Width SD 50.1 fl (35.1-43.9); Red Blood Count 3.90 M/mm3 (4.2-5.4); White Blood Count 9.5 K/mm3 (4.4-11.0)
[2025-08-01 00:43] LABS: Anion Gap 11 (5-15); BUN 8 mg/dL (4-19); BUN/Creat Ratio 8.6 RATIO (10-20); Calcium,Total 9.0 mg/dL (7.6-11.0); Carbon Dioxide 21.9 mmol/L (21.0-32.0); Chloride 104 mmol/L (98-108); Estimated Creatinine Clearance 71.71 ml/min (50-250); Glucose 103 mg/dL (70-99); Potassium 4.5 mmol/L (3.3-5.1)
[2025-08-01 01:25] VITALS: BP 97/67
[2025-08-01 01:27] LABS: Mucous, Urine 0 SEEN /hpf (<or=2+)
[2025-08-01] MEDS: 0.9% Normal Saline (1000mL) 1,000 ML 999 ML IV (01:29)
[2025-08-01 01:31] LABS: Color, Urine Yellow (Yellow); Glucose, Dipstick Normal (Normal); Ketone-Dipstick Negative (Negative); Leukocyte Esterase-Dipstick 500 /ul (Negative); Nitrite-Dipstick Positive (Negative); Occult Blood-Urine 250 /ul (Negative); Protein-Dipstick 100 mg/dl (Negative); Specific Gravity, Urine 1.010 (1.002-1.030); Urine Bilirubin Dipstick Negative (Negative)
[2025-08-01 03:00] VITALS: BP 102/69; PULSE 81
[2025-08-01 03:01] LABS: Red Blood Cells-Urine 10-25 SEEN /hpf (0-5); Squamous Epithelial Cells - UA 0-5 SEEN /hpf (5-10); Transitional Epithelial - Ur 0-5 SEEN /hpf (0-5)
[2025-08-01] MEDS: levoFLOXacin IV 500 MG/100 ML BAG 100 MG IV (03:44)
[2025-08-01 05:30] VITALS: RESP 16
[2025-08-01 07:00] VITALS: BP 118/78; PULSE 78; RESP 16; O2SAT 98
--- NOTE | 2025-08-01 08:39 | PCA ---
CALLED FOR BED UPDATE @ 0837 AND GADIEL SAID MOST LIKELY LATER THIS AFTERNOON- AFTER DISCHARGES
[2025-08-01 09:00] VITALS: BP 124/76; PULSE 89; RESP 16; O2SAT 98
--- NOTE | 2025-08-01 09:36 | ED.RN ---
pt calls out multiple times asking for pain medication. updated pt. i was waiting for the drApril to get done with another pt. pt calls out again stating that if she is going to be waiting all day she will just go home. ama papers signed. pt. waiting on ride.
--- NOTE | 2025-08-01 23:37 | CT_ITS ---
PROCEDURE: ABDOMEN/PELVIS WITHOUT CONT 08/01/2025 REASON FOR EXAM: BACK PAIN, HX OF NEPHRO TUBE TECHNIQUE: Procedure Code: CTABDPEL Modality: CT Procedure: ABDOMEN/PELVIS WITHOUT CONT Noncontrast technique limits evaluation of the abdominal and pelvic viscera. Coronal and Sagittal reconstruction series were provided. One or more dose reduction techniques were used (e.g., Automated exposure control, adjustment of the mA and/or kV according to patient size, use of iterative reconstruction technique). RADIATION DOSE SUMMARY: CTDlvol: 6.04 mGy DLP: 271 mGycm COMPARISON: 06/04/2025. FINDINGS: Left nephrostomy tube is in good position. Mild fullness of the left collecting system is unchanged. 3 obstructing stones of the distal aspect of the left ureter reaching the level of the left ureterovesical junction are unchanged with the largest measuring 3.2 mm. Unchanged left urothelial thickening. Diffuse thickening of the bladder which came secondary to cystitis. Unchanged scattered left renal simple cysts with the largest measuring 2 cm. Prior hysterectomy, unchanged. The visualized lung bases are unremarkable. Normal liver. Normal gallbladder and extrahepatic biliary system. Normal spleen. Normal pancreas. Normal bilateral adrenal glands. Normal size of the right kidney. There is no right renal mass. There are no right renal calculi. There is no right hydronephrosis. Normal visualized right ureter. Normal size of the left kidney. There is no left renal mass. There are no left renal calculi. Normal visualized stomach. Normal small intestine. Normal colon. The appendix is visualized and appears normal. There is no demonstrated peritoneal fluid. Normal abdominal aorta. Normal inferior vena cava. Normal retroperitoneum. There is no pelvic mass lesion or lymphadenopathy. There is no pelvic fluid. Normal abdominal wall. Normal osseous structures. CT/Abdomen/Pelvis without Cont IMPRESSION: Left nephrostomy tube is in good position. Mild fullness of the left collecting system is unchanged. 3 obstructing stones of the distal aspect of the left ureter reaching the level of the left ureterovesical junction are unchanged with the largest measuring 3.2 mm. Unchanged left urothelial thickening. Diffuse thickening of the bladder which came secondary to cystitis. Unchanged scattered left renal simple cysts with the largest measuring 2 cm. Prior hysterectomy, unchanged. Reading [facility]
== END 2025-08-01 09:39 | disposition left against medical advice (07) ==
PROVIDERS: Emergency Provider Emergency Medicine; Visit Provider Emergency Medicine
DX: R11.2 Nausea with vomiting, unspecified (principal); Z93.6 Other artificial openings of urinary tract status; N28.1 Cyst of kidney, acquired; R10.9 Unspecified abdominal pain; N20.1 Calculus of ureter; F17.210 Nicotine dependence, cigarettes, uncomplicated; Z85.41 Personal history of malignant neoplasm of cervix uteri
CPT/HCPCS: 74176; 80048; 81001; 85025; 87077; 87086; 87088; 87186; 96361; 96365; 96375; 96376; 99283; A4216; J2405

== ENCOUNTER 2025-08-03 09:43 | Emergency (ER) | payer MEDICARE, SELFPAY ==
[2025-08-03 09:43] VITALS: BP 121/94; PULSE 77; RESP 16; TEMP 36.2; O2SAT 98
--- NOTE | 2025-08-03 10:18 | EDS_ITS ---
HPI History of Present Illness Chief Complaint: Flank Pain Detail of Chief Complaint: Left flank pain Informant: patient Narrative Narrative: Patient presents with left flank pain that started more than a week ago. She has some chronic issues with kidney stones on that side and has a nephrostomy tube that she has had since 2019 that was placed at [facility]. Patient was seen in the emergency department 3 days ago and was to be transferred to [facility] to be evaluated by urology there for ongoing nausea vomiting and left flank pain. Patient states that she had an appointment the following day with a surgeon at [facility] that is supposed to do a nephrectomy on her however that appointment was then canceled and rescheduled for later this month. She continues complain left flank pain. She has had some nausea but no vomiting. She denies fever at home. She is currently on Cipro 500 twice daily. She attempted taking her hydrocodone at home but it did not help her pain and she states that she spit it back out. [facility] Medical History History of MDR Pseudomonas aeruginosa infection Nephrostomy present Kidney failure Kidney stone Cervical cancer Home Medications ?Medication ?Instructions ?Recorded ?Last Taken ?Type escitalopram oxalate 20 mg tablet 20 mg PO DAILY 04/09 Unknown History (Lexapro) lorazepam 1 mg tablet (Ativan) 1 mg PO Q8H PRN anxiety 04/09/25 06/03/25 06:00 History ondansetron HCl 4 mg tablet 4 mg PO Q6H PRN nausea and vomiting 04/09/25 Unknown History oxycodone 5 mg tablet 10 mg PO Q6H PRN pain 06/03/25 06:00 History ciprofloxacin HCl 500 mg tablet 500 mg PO BID #14 TABL ETS 07/31/25 Unknown Rx oxycodone-acetaminophen 5 mg-325 1 tab PO Q6H PRN PRN Pain 3 days 08/03/25 Unknown Rx mg tablet #12 TABLETS Allergy/AdvReac Type Severity Reaction Status Date / Time haloperidol (From Haldol) Allergy Angioedema Verified 08/03/25 09:43 morphine Allergy Hives Verified 08/03/25 11:17 Penicillins (PCN) Allergy Hives Verified 08/03/25 09:43 Social History Smoking Status: Current every day smoker tobacco type: cigarettes and e- cigarettes ROS ROS ED Review of Systems ROS Unobtainable: other Constitutional Constitutional ED: Reports lethargy; Denies chills, fever(s), sweats or weight loss Eyes Eyes: Denies blurry vision, change in vision or diplopia ENT ENT ED: Denies rhinorrhea or sore throat Cardiovascular Cardiovascular: Denies chest pain, orthopnea or racing heartbeat Respiratory/Chest Respiratory/Chest: Denies cough, dyspnea, dyspnea on exertion, orthopnea or sputum Gastrointestinal Gastrointestinal: Reports nausea; Denies abdominal pain, diarrhea or vomiting Genitourinary Genitourinary ED: Denies dysuria, hematuria or urinary frequency Musculoskeletal Musculoskeletal: Reports back pain; Denies arthralgias, myalgias or neck pain Integumentary Denies abscess, Abrasions or rash Neurologic Neurologic: Denies headache(s) or weakness Psychiatric Psychiatric: Denies anxiety, depression or suicidal thoughts Endocrine Endocrinology: Denies polydipsia, polyphagia or polyuria Hematologic/Lymphatic Hematologic/Lymphatic: Denies easy bleeding, easy bruising or lymphadenopathy Allergic/Immunologic Allergic/Immunologic ED: Denies mouth swelling, tongue swelling or urticaria EXAM Physical Exam Const Vital Signs: 08/03/25 09:43 08/03/25 11:43 Temperature 97.2 F L Temperature Source Oral Pulse Rate 77 72 Respiratory Rate 16 16 Blood Pressure 121/94 H 162/92 H Blood Pressure Mean 103 115 Pulse Ox 98 99 Oxygen Delivery Method Room Air Positive well nourished and well developed General Appearance ED: well developed and NAD HEENT Reports TM's clear and moist mucous membranes normocephalic and atraumatic; Negative for trauma or tenderness Tympanic Membrane ED: Yes TM's clear Eyes PERRL and EOMs intact bilaterally General Eye ED: Negative for pale conjunctiva or scleral icterus Neck no lymphadenopathy, supple and no JVD General: Negative for tenderness Chest Wall inspection of chest normal and palpation of chest normal Chest: Negative for tenderness Resp normal respiratory effort and clear to auscultation bilaterally Effort and Inspection: Negative for respiratory distress or pain with movement Auscultation: Negative for rhonchi, wheezes or diminished lung sounds Cardio regular rate, regular rhythm, S1 normal heart sound, S2 normal heart sound and no murmurs Peripheral Pulses: pulses 2+ throughout GI normal to inspection, nondistended, normoactive bowel sounds, soft to palpation, non-tender, non-distended and no masses GI Narrative: Mild diffuse tenderness. There is no rebound, rigidity, or peritoneal signs. No mass palpated. Back/Spine no CVA tenderness and no thoracic nor lumbar tenderness Back/Spine Narrative: Motion of her back does reveal a nephrostomy tube exiting from the left lower back without any evidence of erythema or drainage noted. There is a urine in the nephrostomy bag. Extremity normal to inspection General Extremety ED: Negative for edema General Extremity: Negative for edema Neuro oriented x3, CN's II-XII intact bilaterally, no sensory deficits noted and gait normal Sensorium / Orientation: awake, alert, oriented to person, oriented to place and oriented to time Motor Exam: strength 5/5 throughout and strength abnormal Psych mental status grossly normal Skin no rashes or lesions noted and no wounds MDM MDM MDM Narrative Medical decision making narrative: Patient presents with left flank pain notes acute on chronic. Seen in the emergency department on 31 July and at that time was arranged transfer to [facility] however she signed out AGAINST MEDICAL ADVICE before transfer could occur due to the fact that she had an appointment with surgeon at [facility] the following day that she wanted to make. Patient clinically looks well. IV line established. She was medicated morphine and Zofran. CBC with differential obtained showed a white count of 9.6 with hemoglobin 13.4 platelet count 355. Chemistries unremarkable. Lactate normal at 1.3. Urinalysis was normal. Patient continues to have pain. Patient was offered transfer to [place] where her binman is as well as transfer to [facility] to manage her pain and potentially be evaluated by the surgeon at apparently was been evaluate her for nephrectomy. Patient states that she would prefer to just go home and try to wait until she sees her palliative care doctor. She scheduled to have her nephrostomy tube changed out on the . I will write her a prescription for few Percocet for pain. Advised her to return if worsening pain, fever, vomiting, or condition worsen anyway. I do not feel she needs a repeat imaging as she just had a CT scan 3 days ago that did not show any acute findings and the nephrostomy tube was in good position. Lab Data Attestation: I reviewed the patient's lab results. Labs: Laboratory Results - last 24 hr 08/03/25 08/03/25 10:40 11:03 WBC 9.6 RBC 4.16 L Hgb 13.4 Hct 39.9 MCV 95.9 MCH 32.2 H MCHC 33.6 RDW Std Deviation 49.7 H RDW Coeff of Bereket 14.0 Plt Count 355 MPV 9.0 Immature Gran % (Auto) 0.600 Neut % (Auto) 71.3 H Lymph % (Auto) 19.6 Mccormick % (Auto) 7.1 Eos % (Auto) 0.9 Baso % (Auto) 0.5 Absolute Neuts (auto) 6.8 Absolute Lymphs (auto) 1.87 Nucleated RBC % 0 Sodium 141 Potassium 4.0 Chloride 106 Carbon Dioxide 22.6 Anion Gap 12 BUN 7 Creatinine 0.84 Est GFR (MDRD) Non-Af 93 BUN/Creatinine Ratio 8.3 L Glucose 84 Lactic Acid 1.3 Calcium 9.1 Urine Color Yellow Urine Clarity Clear Urine pH 7.0 Ur Specific [place] 1.010 Urine Protein 15 H Urine Glucose (UA) Normal Urine Ketones Negative Urine Occult Blood 10 H Urine Nitrite Negative Urine Bilirubin Negative Urine Urobilinogen Normal Ur Leukocyte Esterase Negative Urine RBC 0-5 SEEN Urine WBC 0 SEEN Ur Squamous Epith Cells 0-5 SEEN Urine Bacteria 0 SEEN Urine Mucus 0 SEEN Discharge Plan Triage Chief Complaint: Flank Pain ED Provider: Gloria Selby Dx/Rx/DC Orders Clinical Impression: Acute flank pain Instructions: ED Pain, Acute, Uncertain Cause Prescriptions: New oxycodone-acetaminophen 5-325 mg tablet 1 tab PO Q6H PRN PRN (Reason: Pain) 3 Days Qty: 12 0RF No Action oxycodone 5 mg tablet 10 mg PO Q6H PRN (Reason: pain) lorazepam [Ativan] 1 mg tablet 1 mg PO Q8H PRN (Reason: anxiety) escitalopram oxalate [Lexapro] 20 mg tablet 20 mg PO DAILY ondansetron HCl 4 mg tablet 4 mg PO Q6H PRN (Reason: nausea and vomiting) ciprofloxacin HCl 500 mg tablet 500 mg PO BID Qty: 14 0RF Primary Care Provider: OLE GREEN Referrals: OLE GREEN [Other] Activity Restrictions/Additional Instructions: Keep your appointment with palliative care and follow-up with your binman. Print Language: Indonesian Disposition Disposition: Home, Self Care
[2025-08-03] MEDS: 0.9% Normal Saline (1000mL) 1,000 ML 1000 ML IV (10:51)
[2025-08-03 10:59] LABS: Hematocrit 39.9 % (37-47); Hemoglobin 13.4 g/dL (12.0-15.0); Immature Granulocytes Count 0.060 X10^3/uL (0.0-0.0); Mean Corp Hgb Conc 33.6 g/dL (32-36); Mean Corpuscular Volume 95.9 fL (81-99); Mean Platelet Vol. 9.0 fl (6.2-12.0); NRBC Flagged by Analyzer 0 % (0-5); Platelet Count 355 K/mm3 (150-450); RBC Distribution Width CV 14.0 % (11.6-14.6); RBC Distribution Width SD 49.7 fl (35.1-43.9); Red Blood Count 4.16 M/mm3 (4.2-5.4); White Blood Count 9.6 K/mm3 (4.4-11.0)
[2025-08-03] MEDS: DiphenhydrAMINE 50 MG/ML Syringe 25 MG IV (11:15)
[2025-08-03 11:22] LABS: Anion Gap 12 (5-15); BUN 7 mg/dL (4-19); BUN/Creat Ratio 8.3 RATIO (10-20); Calcium,Total 9.1 mg/dL (7.6-11.0); Carbon Dioxide 22.6 mmol/L (21.0-32.0); Chloride 106 mmol/L (98-108); Glucose 84 mg/dL (70-99); Potassium 4.0 mmol/L (3.3-5.1)
[2025-08-03 11:26] LABS: Mucous, Urine 0 SEEN /hpf (<or=2+)
[2025-08-03 11:29] LABS: Color, Urine Yellow (Yellow); Glucose, Dipstick Normal (Normal); Ketone-Dipstick Negative (Negative); Leukocyte Esterase-Dipstick Negative /ul (Negative); Nitrite-Dipstick Negative (Negative); Occult Blood-Urine 10 /ul (Negative); Protein-Dipstick 15 mg/dl (Negative); Specific Gravity, Urine 1.010 (1.002-1.030); Urine Bilirubin Dipstick Negative (Negative)
[2025-08-03 11:35] LABS: Red Blood Cells-Urine 0-5 SEEN /hpf (0-5); Squamous Epithelial Cells - UA 0-5 SEEN /hpf (5-10)
[2025-08-03 11:43] VITALS: BP 162/92; PULSE 72; RESP 16; O2SAT 99
[2025-08-03 13:00] VITALS: BP 170/88; PULSE 66; RESP 14; TEMP 37; O2SAT 99
== END 2025-08-03 13:04 | disposition home or self-care (01) ==
PROVIDERS: Emergency Provider Emergency Medicine; Visit Provider Emergency Medicine
DX: R10.9 Unspecified abdominal pain (principal); Z93.6 Other artificial openings of urinary tract status; Z90.5 Acquired absence of kidney; Z79.891 Long term (current) use of opiate analgesic; Z85.41 Personal history of malignant neoplasm of cervix uteri; F17.210 Nicotine dependence, cigarettes, uncomplicated; M54.9 Dorsalgia, unspecified; R11.0 Nausea
CPT/HCPCS: 80048; 81001; 83605; 85025; 96361; 96375; 99283; A4216; J2405